=== PATIENT | male | born 1960 | race Caucasian/White ===

== ENCOUNTER 2022-10-06 19:28 | Inpatient (IN) | payer BC, MEDICARE, SELFPAY ==
[2022-10-06] VITALS (35 sets, daily range): BP systolic 132–177; BP diastolic 62–115; PULSE 67–86; RESP 4–31; TEMP 37.2–37.8; O2SAT 93–100
--- NOTE | 2022-10-06 19:45 | ECG_ITS ---
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
--- NOTE | 2022-10-06 19:45 | XR_ITS ---
The [address] [address] Patient Name: JOEL STINSON MRN: [id number] date: 1960 Sex: M Assigned Patient Location: ER Current Patient Location: ER Accession/Order Number: [id number] Exam Date: 10/06/2022 20:15 Report Date: 10/06/2022 20:38 At the request of: APPLE MARKER Procedure: XR chest 1V EXAMINATION: XR chest 1V HISTORY: Cough COMPARISON: Portable chest 01/01/2021 TECHNIQUE: Portable chest FINDINGS: The lung parenchyma is free of consolidation or infiltrate. No pneumothorax or pleural effusion. The cardiac, mediastinal and hilar contours are normal. The visualized osseous structures exhibit no gross abnormality. XR/XR chest 1V IMPRESSION: No acute cardiopulmonary abnormality. Electronically authenticated by: KHADAR HICKEY Date: 10/06/2022 20:38
--- NOTE | 2022-10-06 19:52 | ED.GENADUL1 ---
HPI - General Adult General Chief complaint: Fever Stated complaint: LOWER EXTREMITY PAIN Time Seen by Provider: 10/06/22 19:31 Source: patient and family () Mode of arrival: Wheelchair Limitations: no limitations History of Present Illness HPI narrative: This 62-year-old male who is paraplegic since 2003 due to cauda equina and lives at home with his presents for evaluation of 3 days of fever, general illness with body aches, nausea, several episodes of vomiting and redness and swelling to the left lower extremity. The patient has chronic wounds on the right lower extremity but not typically on the left lower extremity. The patient initially thought that he had a viral illness because his grandson has been sick. Since that time he has been getting increasingly weak. He denies any chest pain or shortness of breath. He does have an occasional cough. He denies any sarahi abdominal pain. The patient uses a straight catheter to empty his bladder but states that his urine has been clear. He has several wounds/ulcers on his buttocks and sees Dr Brar at [facility]ound care. The patient's states that his temperature was 103 on Wednesday night. She states that since then she has taken his temperature and the thermometer read high. She changes his only on his buttocks daily and states these are at baseline. She also changes the wounds on his lower extremities daily. She has noticed that the area at the base of the left 5th toe which is typically a callus has now opened up. She denies there has been any drainage from it. The swelling, redness and blistering on the left lower leg is new. She states that the right lower extremity is unchanged from baseline. Onset (ago): day(s) (3) Related Data Home Medications Medication Instructions Recorded Confirmed amlodipine 10 mg tablet mg 10/06/22 atenolol 100 mg tablet mg 10/06/22 citalopram 40 mg tablet mg 10/06/22 ferrous sulfate 325 mg (65 mg mg 10/06/22 iron) tablet glipizide 10 mg tablet mg 10/06/22 lisinopril 20 mg tablet mg 10/06/22 oxybutynin chloride 15 mg mg PO 10/06/22 tablet,extended release 24 hr sitagliptin phosphate 100 mg mg 10/06/22 tablet (Januvia) Allergies Allergy/AdvReac Type Severity Reaction Status Date / Time vancomycin Allergy Verified 10/06/22 19:37 Review of Systems ROS Status of ROS 10 or more systems reviewed and unremarkable except as noted in history and below [facility] Medical History (Updated 10/07/22 @ 02:13 by Eli Smith MD) Social History Smoking status: Never smoker Exam Narrative Exam Narrative: Nurses note and vital signsReviewed, the patient has a low-grade fever, normal pulse, blood pressure is elevated at 177/71, he is not hypoxic with pulse ox of 100 percent on room air General: The patient is ill appearing and shivering. He is awake alert oriented ?4, no respiratory distress Skin: Warm, dry, no pallor noted. There is no rash noted. See musculoskeletal section for description of legs Head: Normocephalic, atraumatic Eye: Normal conjunctiva, no drainage, EOMI. PERRL Ears, Nose, Mouth, and Throat: oral mucosa is dry Cardiovascular: Regular Rate and Rhythm, vital murmurs, rubs or gallops. Respiratory: Patient is in no distress, no accessory muscle use, lungs are clear to auscultation, no wheezing, rales or rhonchi Back: non-tender, no CVA tenderness bilaterally to percussion. GI: Normal bowel sounds, no tenderness to palpation, no masses appreciated. No rebound, guarding, or rigidity noted. Musculoskeletal: Left lower extremity is warm to the touch, edematous with several blistering areas, at the base of the left 5th toe on the plantar aspect there is an open area. The states that this is typically a callus and is not open. There is no drainage from the area. I did not appreciate any foul smell. There is also a stage II decubitus ulcer on the left medial calcaneus area. RLE has a small shallow ulcer on the medial aspect of the base of the hallux and an approx 3 x 3 cm shallow ulcer on the medial malleolus. The skin on the RLE is dry but not red, warm or weeping. Neurological: A&O x4, normal speech, at neurologic baseline with history of paraplegia Psychiatric: Cooperative Constitutional Vital Signs, click to edit/add: Last Vital Signs Temp 99.2 F 10/07/22 01:00 Pulse 63 10/07/22 01:00 Resp 20 10/07/22 01:00 BP 132/67 H 10/07/22 01:00 Pulse Ox 93 L 10/07/22 01:00 O2 Del Method Room Air 10/07/22 01:00 Course Vital Signs Vital signs: Vital Signs Temperature 99.6 F 10/06/22 19:33 Pulse Rate 79 10/06/22 19:33 Respiratory Rate 16 10/06/22 19:33 Blood Pressure 177/71 H 10/06/22 19:33 Pulse Oximetry 100 10/06/22 19:33 Oxygen Delivery Method Room Air 10/06/22 19:33 Temperature 99.2 F 10/07/22 01:00 Pulse Rate 63 10/07/22 01:00 Respiratory Rate 20 10/07/22 01:00 Blood Pressure 132/67 H 10/07/22 01:00 Pulse Oximetry 93 L 10/07/22 01:00 Oxygen Delivery Method Room Air 10/07/22 01:00 Medical Decision Making MDM Narrative Medical decision making narrative: 62-year-old male who is paraplegic since 2003 after having cauda equina and lives at home with his is brought emergency department for evaluation of a fever for the past 5 days. The states that his temperature was as high as 103 at home and then the thermometer read high. The patient initially thought that he had a viral syndrome because one of their grandchildren had recently been sick. He then started developing redness and swelling of the left lower extremity. He does have chronic wounds on both feet and his buttock area. He does go to wound care at [facility] but they only treat his buttock wounds, not his legs or feet.The patient's dresses his feet and buttock area on a daily basis and states that the left leg is not typically red, warm and does not usually have blistering. This is new in the past several days. He also has a callus on his left foot that has recently opened up. She denies that it has been draining. The patient does have a mild cough. He denies any chest pain. He denies any vomiting or diarrhea but does have some mild nausea. Upon arrival a sepsis protocol was instituted. He had a normal EKG at 75 beats for minute. An IV was placed and he was given a liter of normal saline and IV Zosyn. He is ALLERGIC to vancomycin. 2 sets of blood cultures, lactic acid, CBC with differential, comprehensive metabolic profile, urinalysis, chest x-ray and wound cultures were ordered. The wound on the base of the left foot was cultured. He was medicated with Tylenol for his fever. His vital signs remained hemodynamically stable. He has an elevated white count at 17.7 with a low hemoglobin of 7.6. The patient did require blood in June and had a colonoscopy at that time in [facility] after he was admitted. There were no significant findings at the time of his colonoscopy. He has not had any black tarry stools. The states that his wounds do not typically bleed. He has a normal sodium and potassium. Normal chloride and CO2. BUN is mildly elevated at 29 and creatinine is mildly elevated at 1.67. Glucose was normal at 102. Alkaline phosphatase is mildly elevated at 190. Lactic acid was normal at 1.5. Chest x-ray was normal. He remained hemodynamically stable in the emergency department. After he was feeling better he requested some to eat. He requested something for generalized pain and was given one [place]. He was type and crossed and received one unit of O negative blood as a negative blood was currently unavailable. The case was discussed with the hospitalist and the patient was accepted for admission to [facility]. He was given a unit of blood prior to being transferred to the floor. Lab Data Labs: Lab Results 10/06/22 10/06/22 Range/Units 19:58 21:15 WBC 17.7 H (4.0-11.0) 10^3/uL RBC 3.26 L (4.70-6.10) 10^6/uL Hgb 7.6 L (14.0-18.0) g/dL Hct 24.3 L (42.0-54.0) % MCV 74.5 L (80.0-94.0) fL MCH 23.3 L (25.9-34.0) pg MCHC 31.3 (29.9-35.2) g/dL RDW 17.0 H (11.0-15.0) % Plt Count 365 (150-450) 10^3/uL MPV 9.0 L (9.5-13.5) fL Neut % (Auto) 79.1 H (43.0-75.0) % Lymph % (Auto) 10.3 L (20.5-60.0) % [place] % (Auto) 7.5 (1.7-12.0) % Eos % (Auto) 2.1 (0.9-7.0) % Baso % (Auto) 0.2 (0.2-2.0) % Neut # (Auto) 14.0 H (1.4-6.5) 10^3/uL Lymph # (Auto) 1.8 (1.2-3.8) 10^3/uL [place] # (Auto) 1.3 H (0.3-0.8) 10^3/uL Eos # (Auto) 0.4 (0.0-0.7) 10^3/uL Baso # (Auto) 0.0 (0.0-0.1) 10^3/uL Abs Immat Gran (auto) 0.15 H (0.00-0.03) 10^3/uL Imm/Tot Granulo (auto) 0.8 H (0.0-0.5) % Sodium 134 L (136-145) mmol/L Potassium 4.3 (3.5-5.1) mmol/L Chloride 101 (98-107) mmol/L Carbon Dioxide 21.4 (21.0-32.0) mmol/L Anion Gap 15.9 BUN 29.0 H (7.0-18.0) mg/dL Creatinine 1.67 H (0.70-1.30) mg/dL Est GFR ( Amer) 51 L (>=60) Est GFR (Non-Af Amer) 42 L (>=60) BUN/Creatinine Ratio 17.4 Glucose 102 (74-106) mg/dL Lactate 1.5 (0.4-2.0) mmol/L Calcium 8.6 (8.5-10.1) mg/dL Total Bilirubin 0.3 (0.2-1.0) mg/dL AST 24 (15-37) U/L ALT 15 L (16-63) U/L Alkaline Phosphatase 190 H (46-116) U/L Total Protein 8.5 H (6.4-8.2) g/dL Albumin 1.8 L (3.4-5.0) g/dL Globulin 6.7 g/dL Albumin/Globulin Ratio 0.3 Blood Type A Negative Antibody Screen Negative Crossmatch See Detail ECG Data Attestation: I personally reviewed and interpreted this ECG as follows: (Sinus rhythm at 75 beats for minute, normal axis, normal intervals, no acute ST segment elevation or T-wave inversion) Critical Care Time Critical Care Time Total Critical Care Time: 40 Discharge Plan Discharge Chief Complaint: Fever Clinical Impression: Acute anemia, Cellulitis of left lower extremity Patient Disposition: Admitted As Inpatient Time of Disposition Decision: 01:31 Discharge Date/Time: 10/07/22 00:58
--- NOTE | 2022-10-06 20:18 | US_ITS ---
[place] [address] Patient Name: JOEL STINSON MRN: [id number] date: 1960 Sex: M Assigned Patient Location: ER Current Patient Location: ER Accession/Order Number: [id number] Exam Date: 10/06/2022 19:50 Report Date: 10/06/2022 22:09 At the request of: APPLE MOSCOSO Procedure: US venous doppler LE BI EXAMINATION: US venous doppler LE BI HISTORY: R/O DVT COMPARISON: No relevant comparison available. TECHNIQUE: Grayscale, color and Doppler ultrasound FINDINGS: Region: Bilateral legs Thrombus: None Flow: Normal Compressibility: Normal Augmentation: Normal Limited exam due to subcutaneous edema US/US venous doppler LE BI IMPRESSION: No deep or superficial vein thrombus in the visualized veins *Exam performed in accordance with [facility] practice guidelines- Peripheral venous ultrasound, June 22, 2009. Electronically authenticated by: KHADAR MEDINA Date: 10/06/2022 22:09
[2022-10-06 20:26] LABS: Basophils Percent Auto 0.2 % (0.2-2.0); Eosinophils Absolute Auto 0.4 10^3/uL (0.0-0.7); Eosinophils Percent Auto 2.1 % (0.9-7.0); Hematocrit 24.3 % (42.0-54.0); Hemoglobin 7.6 g/dL (14.0-18.0); Immature Granulocytes Abs Auto 0.15 10^3/uL (0.00-0.03); Immature Granulocytes Pct Auto 0.8 % (0.0-0.5); Lymphocytes Absolute Auto 1.8 10^3/uL (1.2-3.8); Lymphocytes Percent Auto 10.3 % (20.5-60.0); Mean Corpuscular HGB Conc 31.3 g/dL (29.9-35.2); Mean Corpuscular Hemoglobin 23.3 pg (25.9-34.0); Mean Corpuscular Volume 74.5 fL (80.0-94.0); Monocytes Absolute Auto 1.3 10^3/uL (0.3-0.8); Monocytes Percent Auto 7.5 % (1.7-12.0); Neutrophils Percent Auto 79.1 % (43.0-75.0); Platelet Count 365 10^3/uL (150-450); Red Blood Count 3.26 10^6/uL (4.70-6.10); White Blood Count 17.7 10^3/uL (4.0-11.0)
[2022-10-06] MEDS: 0.9 % SODIUM CHLORIDE 1,000 ML 999 ML IV (20:31)
[2022-10-06] MEDS: ACETAMINOPHEN 325 MG TABLET 650 MG PO (20:31)
[2022-10-06] MEDS: PIPERACILLIN SODIUM/TAZOBACTAM 3.375 GM in 0.9 % SODIUM CHLORIDE 50 ML IV (20:32)
[2022-10-06] MEDS: ONDANSETRON PF 4 MG/2 ML VIAL IV (20:32)
[2022-10-06 20:34] LABS: Alanine Aminotransferase 15 U/L (16-63); Albumin Globulin Ratio 0.3; Albumin Level 1.8 g/dL (3.4-5.0); Alkaline Phosphatase 190 U/L (46-116); Anion Gap 15.9; Aspartate Amino Transferase 24 U/L (15-37); BUN Creatinine Ratio 17.4; Bilirubin Total 0.3 mg/dL (0.2-1.0); Calcium 8.6 mg/dL (8.5-10.1); Carbon Dioxide 21.4 mmol/L (21.0-32.0); Chloride 101 mmol/L (98-107); Estimated GFR (African America 51 (>=60); Estimated GFR (Non-African Ame 42 (>=60); Globulin 6.7 g/dL; Glucose 102 mg/dL (74-106); Potassium 4.3 mmol/L (3.5-5.1); Sodium 134 mmol/L (136-145); Total Protein 8.5 g/dL (6.4-8.2)
--- NOTE | 2022-10-06 20:34 | PC.NURSE ---
Pt presents to ER with his via wheelchair Pt is a paraplegic with chronic wounds to bilateral lower legs, feet, and buttocks Per pt's wounds on his buttocks are to the bone Dr. Smith unwrapped the left lower leg as pt and stated this is new swelling and some new openings on the left side of the foot There is an open pressure wound to the heel of the left foot and beneath the small toe on the left Aston lift pad was placed below pt and pt moved onto bed Pt gowned, placed on bedside monitor, EKG obtained IV started, 2 sets of blood cultures obtained Pt's is at bedside Pt is A&Ox4 Pt states he has been feeling sick since Wednesday with fevers up to 104 intermittently Pt is now weak and feels dry Pt straight caths himself for urine and states he has had normal output
[2022-10-06 20:37] LABS: Lactate/Lactic Acid 1.5 mmol/L (0.4-2.0)
--- NOTE | 2022-10-06 20:55 | PC.NURSE ---
Non pitting edema and heat present to left lower extremity and foot Ultrasound currently being performed at bedside
--- NOTE | 2022-10-06 22:11 | ECG_ITS ---
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 Repeat ECG is requested 9115 abnormal ECG Electronically Signed On 10-07-2022 7:02:12 EDT by ZARIA CASTANON
[2022-10-06] MEDS: 0.9 % SODIUM CHLORIDE 250 ML IV.SOLN IV (22:55)
--- NOTE | 2022-10-06 23:00 | PC.NURSE ---
This nurse at bedside with pt after blood initiation pt tolerating well Will continue to monitor
[2022-10-06] MEDS: IBUPROFEN 600 MG TABLET PO (23:39)
[2022-10-06] MEDS: HYDROCODONE/ACETAMINOPHEN 5-325 MG TABLET 1 TAB PO (23:54)
[2022-10-07] VITALS (24 sets, daily range): BP systolic 123–155; BP diastolic 55–75; PULSE 59–94; RESP 10–25; TEMP 36.4–37.8; O2SAT 91–96; BMI 34.8
--- NOTE | 2022-10-07 03:49 | P.PN_ITS ---
Progress Note: Subjective Subjective Interval history: The patient is a 62-year-old male with a history of paraplegia. He has recently been exposed to his grandchild who had a respiratory illness. The patient has chronic lower extremity ulcers and he started noticing an ulcer on his left dorsal foot that became more red swollen and tender over the last several days. He vomited twice at home. The patient presented to the ED and was thought to have left lower extremity cellulitis. He was given Zofran, Tylenol and Zosyn. He was also noted to be anemic with a hemoglobin of 7.6 and was given 1 unit of blood. He is being admitted for further evaluation. Exam Narrative Exam Narrative: General : Alert and oriented x3 HEENT : Extraocular movements intact, pupils equal round and reactive to light and accommodation Neck: Supple, no JVD Chest: Clear to auscultation bilaterally, no wheezes Heart: Regular rate and rhythm, S1 and S2 heard Abdomen: Soft nontender nondistended. Extremities: No clubbing cyanosis or edema Skin: Multiple nonhealing ulcers of both lower extremity Constitutional Vital Signs, click to edit/add: Last Vital Signs Temp 99.2 F 10/07/22 01:25 Pulse 79 10/07/22 01:25 Resp 20 10/07/22 01:25 BP 132/67 H 10/07/22 01:25 Pulse Ox 93 L 10/07/22 01:25 O2 Del Method Room Air 10/07/22 01:25 Progress Note: Objective Labs Labs: Short CBC 10/06/22 Range/Units 19:58 WBC 17.7 H (4.0-11.0) 10^3/uL Hgb 7.6 L (14.0-18.0) g/dL Hct 24.3 L (42.0-54.0) % Plt Count 365 (150-450) 10^3/uL BMP 10/06/22 19:58 Sodium 134 L Potassium 4.3 Chloride 101 Carbon Dioxide 21.4 BUN 29.0 H Creatinine 1.67 H Glucose 102 Calcium 8.6 Liver Function 10/06/22 Range/Units 19:58 Total Bilirubin 0.3 (0.2-1.0) mg/dL AST 24 (15-37) U/L ALT 15 L (16-63) U/L Alkaline Phosphatase 190 H (46-116) U/L Albumin 1.8 L (3.4-5.0) g/dL Progress Note: A&P Assessment and Plan (1) Acute anemia: (2) Cellulitis of left lower extremity: Plan The patient is a 62-year-old male with above medical problems, presenting with left lower extremity cellulitis. Left lower extremity cellulitis -Provide supportive care -Continue empiric antibiotics with Zosyn, patient allergic to vancomycin -Wound care Acute on chronic anemia -Given 1 unit of blood -Monitor labs Accelerated hypertension -Hydralazine IV as needed Paraplegia with neurogenic bladder -Provide supportive care -Place Rowe catheter DVT Prophylaxis -Lovenox Medication review -Medication reconciliation form not yet completed, awaiting on meds to be verified Goals of care -Full code Communications -Discussed with the emergency room physician -Discussed with the bedside nurse -Patient updated of plan of care, all questions answered to their satisfaction Disposition -Home when medically stable Telemedicine clause -As the provider of this telehealth evaluation, requested by the patient's evaluating physician, I attest that I introduced myself to the patient, provided my credentials and determined that telemedicine via a real-time, two-way interactive audio and video platform is an appropriate and effective means of providing this service. -I reviewed the patient's chart and had a discussion with the member of the patient's treatment team. -The patient and I mutually agreed with continuation of this evaluation via telemedicine. The patient consented for the telemedicine evaluation. -This virtual encounter was taken place from [place], [place]. The encounter was approximately 35 minutes. The nurse was present during the entire time of the encounter and was able to remove the stethoscope and appropriate directions. The patient was evaluated at [facility]. Telemedicine Attestation Telemedicine Attestation I conducted this encounter from [place], [place] via secure live, [id number] video conference with the patient, located at [facility] with nurse Prior to the interview, the risks and benefits of telemedicine were discussed with the patient and verbal consent was obtained.
[2022-10-07] MEDS: PIPERACILLIN SODIUM/TAZOBACTAM 3.375 GM in 0.9 % SODIUM CHLORIDE 50 ML IV ×2 (04:42→20:40)
[2022-10-07] MEDS: 0.9 % SODIUM CHLORIDE 250 ML 100 ML IV (04:45)
[2022-10-07 05:17] LABS: Basophils Percent Auto 0.2 % (0.2-2.0); Eosinophils Absolute Auto 0.5 10^3/uL (0.0-0.7); Eosinophils Percent Auto 3.4 % (0.9-7.0); Immature Granulocytes Abs Auto 0.12 10^3/uL (0.00-0.03); Immature Granulocytes Pct Auto 0.8 % (0.0-0.5); Lymphocytes Percent Auto 14.1 % (20.5-60.0); Mean Corpuscular HGB Conc 30.3 g/dL (29.9-35.2); Mean Corpuscular Hemoglobin 23.4 pg (25.9-34.0); Mean Corpuscular Volume 77.3 fL (80.0-94.0); Mean Platelet Volume 8.9 fL (9.5-13.5); Monocytes Absolute Auto 1.5 10^3/uL (0.3-0.8); Monocytes Percent Auto 10.7 % (1.7-12.0); Neutrophils Absolute Auto 10.2 10^3/uL (1.4-6.5); Neutrophils Percent Auto 70.8 % (43.0-75.0); Platelet Count 266 10^3/uL (150-450); Red Blood Count 2.99 10^6/uL (4.70-6.10); Red Cell Distribution Width 17.2 % (11.0-15.0); White Blood Count 14.5 10^3/uL (4.0-11.0)
[2022-10-07 05:26] LABS: Anion Gap 13.6; BUN Creatinine Ratio 16.1; Calcium 7.9 mg/dL (8.5-10.1); Carbon Dioxide 21.1 mmol/L (21.0-32.0); Chloride 105 mmol/L (98-107); Estimated GFR (African America 56 (>=60); Estimated GFR (Non-African Ame 46 (>=60); Glucose 97 mg/dL (74-106); Potassium 3.7 mmol/L (3.5-5.1); Sodium 136 mmol/L (136-145)
[2022-10-07 05:27] LABS: Hematocrit 23.1 % (42.0-54.0)
--- NOTE | 2022-10-07 07:43 | CM.NOTE ---
Medicare Outpatient Observation Notice discussed with pt, pt verbalizes understanding and signs paper. Origianl given to pt and copy placed on pt's chart.
[2022-10-07 08:30] LABS: Glucometer 92 mg/dL (74-106)
--- NOTE | 2022-10-07 08:36 | PC.NURSE ---
Patient has multiple wound ulcers on bilateral legs. L lower leg is red and warm to touch. R lower leg has multiple wound ulcers
[2022-10-07 08:59] LABS: Partial Thromboplastin Time 27.6 sec (22.3-36.2); Prothrombin Time 11.6 sec (9.0-11.6)
--- NOTE | 2022-10-07 09:34 | CM.NOTE ---
Rounds made with Dr. Alarcon, pt will receive 2 units of PRBC's today. Will continue to monitor, pt verbailzes feeling better. Pt has [facility] that follows his wounds, wound will consult on pt while here in hospital.
--- NOTE | 2022-10-07 09:49 | P.HP_ITS ---
H&P: HPI History of Present Illness Chief complaint: LOWER EXTREMITY PAIN, LLE CELLULITIS, ANEMIA Narrative: Patient is a quadriplegic has had increasing swelling of his left lower extremity found to have some significant erythema. He said some chronic wounds in his lower extremities and gluteal area. He sees wound management for that. With increasing swelling and erythema he presented to the emergency room. Found to have left lower extremity cellulitis with failed outpatient treatment. Admitted for work-up and treatment of same Review of Systems ROS Constitutional Reports: fever (103 at home) Ears, nose, mouth, and throat Denies: throat pain Cardiovascular Denies: chest pain Respiratory Denies: shortness of breath Gastrointestinal Denies: abdominal pain Genitourinary Reports: painful urination Musculoskeletal Denies: back pain Integumentary/Breast Reports: rash and redness [facility] Medical History (Updated 10/07/22 @ 02:46 by Reese Lewis) Surgical History Social History Smoking status: Never smoker Meds Home Medications and Allergies Home Medications Medication Instructions Recorded Confirmed Type amlodipine 10 mg tablet 10 mg PO .ONCE DAILY 10/06/22 10/07/22 History atenolol 100 mg tablet 100 mg PO .ONCE DAILY 10/06/22 10/07/22 History citalopram 40 mg tablet 40 mg PO .ONCE DAILY 10/06/22 10/07/22 History ferrous sulfate 325 mg (65 mg 325 mg PO .ONCE DAILY 10/06/22 10/07/22 History iron) tablet glipizide 10 mg tablet 10 mg PO .TWICE DAILY 10/06/22 10/07/22 History lisinopril 20 mg tablet 20 mg PO .ONCE DAILY 10/06/22 10/07/22 History oxybutynin chloride 15 mg 15 mg PO .ONCE DAILY 10/06/22 10/07/22 History tablet,extended release 24 hr sitagliptin phosphate 100 mg 100 mg PO .ONCE DAILY 10/06/22 10/07/22 History tablet (Januvia) Allergies Allergy/AdvReac Type Severity Reaction Status Date / Time vancomycin Allergy Verified 10/06/22 19:37 Exam Constitutional Vital Signs, click to edit/add: Last Vital Signs Temp 97.7 F 10/07/22 06:00 Pulse 59 L 10/07/22 06:00 Resp 16 10/07/22 08:00 BP 123/63 H 10/07/22 06:00 Pulse Ox 92 L 10/07/22 06:00 O2 Del Method Room Air 10/07/22 06:00 Documenting provider has reviewed patient's vital signs: yes Common normals: no apparent distress Exam limitations: no altered mental status General appearance: cooperative and comfortable Respiratory Common normals: normal respiratory effort and no retractions Cardio Common normals: no JVD, regular rate and regular rhythm Extremity Common normals: abnormal to inspection (Cellulitis and swelling of left lower extremity with open wounds) Results Labs Labs: Short CBC 10/06/22 10/07/22 Range/Units 19:58 03:53 WBC 17.7 H 14.5 H (4.0-11.0) 10^3/uL Hgb 7.6 L 7.0 L (14.0-18.0) g/dL Hct 24.3 L 23.1 L* (42.0-54.0) % Plt Count 365 266 (150-450) 10^3/uL BMP 10/06/22 10/07/22 19:58 03:53 Sodium 134 L 136 Potassium 4.3 3.7 Chloride 101 105 Carbon Dioxide 21.4 21.1 BUN 29.0 H 25.0 H Creatinine 1.67 H 1.55 H Glucose 102 97 Calcium 8.6 7.9 L Liver Function 10/06/22 Range/Units 19:58 Total Bilirubin 0.3 (0.2-1.0) mg/dL AST 24 (15-37) U/L ALT 15 L (16-63) U/L Alkaline Phosphatase 190 H (46-116) U/L Albumin 1.8 L (3.4-5.0) g/dL Assessment and Plan Assessment and Plan (1) Acute anemia: (2) Cellulitis of left lower extremity: Plan Fever, leukocytosis, swelling and erythema of left lower extremity consistent with cellulitis with failed outpatient treatment. Has been seeing wound management. Consult to wound therapy here. IV antibiotics. Need to watch antibiotic dosage secondary to elevated BUN and creatinine. Likely diabetic wounds-patient meets criteria for sepsis, not severe, criteria being fever leukocytosis and suspected source of infection with left lower extremity cellulitis Bladder outlet obstruction. Patient frequently caths himself. Has had some increasing difficulty lately. He has had urethral strictures with dilation in the past.Consult to urology Iron deficiency anemia- transfusions in the past. His hemoglobin was 7.7 they gave him 1 unit and went down to 7. Given 2 more units. Check CBC posttransfusion. He has had recent scopes with Upper endoscopy and colonoscopy n No bleeding source was found. Patient not having any black tarry stools or bloody stools . we will discuss with hematology Hyponatremia-monitor daily Acute kidney injury-up slightly, continue to watch antibiotics Moderate protein calorie malnutrition-diet supplement Paraplegic from spinal cord injury-Maintain routine care. Diabetes mellitus-add insulin sliding scale
[2022-10-07] MEDS: CITALOPRAM HYDROBROMIDE 20 MG TABLET 40 MG PO (10:06)
[2022-10-07] MEDS: PROSTAT 15 GM PROTEIN/100 CAL 30 ML LIQUID PACKET PO ×2 (10:06→20:52)
[2022-10-07] MEDS: ATENOLOL 50 MG TABLET 100 MG PO (10:06)
[2022-10-07] MEDS: GLIPIZIDE 10 MG TABLET PO ×2 (10:07→20:52)
[2022-10-07] MEDS: FUROSEMIDE 20 MG TABLET PO (10:07)
[2022-10-07] MEDS: FERROUS SULFATE 325 MG TABLET PO (10:07)
[2022-10-07] MEDS: LEVOFLOXACIN IN DEXTROSE 5 % 750 MG/150 ML IV.SOLN 100 MG IV (10:08)
[2022-10-07] MEDS: LISINOPRIL 20 MG TABLET PO (10:08)
[2022-10-07] MEDS: L. ACIDOPHILUS/L.BULGARICUS 1 PACKET GRAN.PACK PO ×2 (10:08→20:52)
[2022-10-07] MEDS: OXYBUTYNIN CHLORIDE 5 MG TAB XL 15 MG PO (10:09)
[2022-10-07] MEDS: SITAGLIPTIN PHOSPHATE 50 MG TABLET 100 MG PO (10:09)
[2022-10-07] MEDS: OMEPRAZOLE 20 MG CAPSULE.DR PO ×2 (10:09→20:52)
[2022-10-07 11:14] LABS: Glucometer 178 mg/dL (74-106)
--- NOTE | 2022-10-07 12:00 | PHOTOS ---
right heel/foot
--- NOTE | 2022-10-07 12:24 | PHOTOS ---
right medial ankle
--- NOTE | 2022-10-07 12:25 | PHOTOS ---
right lateral ankle
--- NOTE | 2022-10-07 12:25 | PHOTOS ---
left heel medial
--- NOTE | 2022-10-07 12:27 | PHOTOS ---
left plantar foot
--- NOTE | 2022-10-07 12:28 | PHOTOS ---
left lateral ankle
--- NOTE | 2022-10-07 14:17 | PC.NURSE ---
Patient seen today for wound care assessment. Patient admitted due to left lower leg cellulitis. States he has had wounds to buttocks and right heel/ankle for awhile but the ulcers to the left foot/heel/ankle are new as well as the redness and blisters to the lower leg. States he is feeling better than when he first came in. He is paraplegic. He has an off loading boot for the right at home and uses an air mattress, he has not had an off loading boot for the left as he has not had any problems with the left side in the past. He sees [facility] and his takes care of his wounds at home. Photos takes of wounds today. Right ischial: Unsure of what stage wound was at the deepest. Bone is covered with tissue, but very close. No odor noted. Periwound mildly macerated. Biggs wound base. Minimal serosang drainage noted. 7cmx3.8cmx5.5cm. No tunneling or undermining noted. Left ischial: Unsure of what stage wound was at the deepest. Small opening with tunneling noted. No odor noted. Periwound mildly macerated. Unable to visualize wound bed due to small opening. Min/mod serosang drainage noted. [id number] Coccyx: Unsure of what stage wound was at the deepest. Bone is covered with tissue, but very close. No odor noted. Periwound mildly macerated. Biggs wound base. Minimal serosang drainage noted. [id number]. Right medial buttocks/perirectal: Skin tear distal to coccyx ulcer. Superficial. Biggs wound base. Minimal drainage. 6.5cmx1.8cmx0.1cm. Patient with multiple open wounds to right and left foot/heels. Right lateral ankle ulcer with necrotic center. Measurements [id number]. No drainage noted. No s/sx of infection. Right medial heel/ankle with 2 yellow slough covered areas. Both areas are approximately [id number]. Some yellow drainage noted. Left medial heel with open area and deep tissue injury surrounding open ulcer. Area is slightly erythematous with some drainage noted. Periwound with areas of purple/red the is non blanching. Entire area measures 5cmx3.8cmx0.1cm. The middle part of this area appears to be an open blister. Left plantar 5th metatarsal head with open ulcer that is necrotic with loose callus skin and fluctuance noted. When pushed on, thick yellow/pardo pus expressed. Area measures 2.1cmx1.9qbn8fo. Left lateral ankle with deep tissue injury noted. No drainage. Overall left lower leg is more swollen and red than right side. Also with intact blistered scattered to leg. Updated Dr. Beal on patient's lower extremity ulcers. He will order treatment on these areas. Applied gauze to BLE until evaluated by Dr. Beal. Will order mesalt ribbon to left ischial ulcer daily. Triad to perirectal skin tear and other areas of excoriation daily and as needed. Calcium alginate to coccyx and right ischial daily. Cover with ABD pads. Cloth tape. Patient requests to keep current mattress. Placed air cushion under his lower legs to off load heels/feet. Reposition frequently. Please call [phone] if any questions.
[2022-10-07] MEDS: 0.9 % SODIUM CHLORIDE 250 ML 120 ML IV (14:42)
--- NOTE | 2022-10-07 14:51 | XR_ITS ---
The [address] [address] Patient Name: JOEL STINSON MRN: [id number] date: 1960 Sex: M Assigned Patient Location: MS Current Patient Location: MS Accession/Order Number: [id number] Exam Date: 10/07/2022 15:10 Report Date: 10/07/2022 16:01 At the request of: BELKYS ALLEN Procedure: XR ankle SARA min 3V EXAM: XR ankle SARA min 3V, XR foot SARA min 3V HISTORY: wounds infection COMPARISON: None. TECHNIQUE: 3 views of each ankle and 3 views of each foot FINDINGS: Left: Subcutaneous soft tissue edema of the lower leg that extends into the dorsal aspect of the foot. No visualized fracture, dislocation, subluxation or osseous lesion. Degenerative changes of the first metatarsophalangeal joint. The remainder of the joint spaces are unremarkable for patient's age. Atherosclerosis of the vascular structures. Right: Soft tissue edema on the lower leg that extends into the dorsum of the foot. Chronic periosteal reaction of the fibula, lateral malleolus, tibia and medial malleolus. 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 No acute fracture, dislocation or subluxation. Degenerative changes of the first metatarsophalangeal joint. Atherosclerosis of the vascular structures. XR/XR ankle SARA min 3V IMPRESSION: Diffuse subcutaneous soft tissue edema of the lower leg that extends into the dorsum of the feet. No visualized acute osseous abnormality. Electronically authenticated by: KHADAR HICKEY Date: 10/07/2022 16:01
--- NOTE | 2022-10-07 14:51 | XR_ITS ---
The [address] [address] Patient Name: JOEL STINSON MRN: [id number] date: 1960 Sex: M Assigned Patient Location: MS Current Patient Location: MS Accession/Order Number: [id number] Exam Date: 10/07/2022 15:10 Report Date: 10/07/2022 16:01 At the request of: BELKYS ALLEN Procedure: XR foot SARA min 3V EXAM: XR ankle SARA min 3V, XR foot SARA min 3V HISTORY: wounds infection COMPARISON: None. TECHNIQUE: 3 views of each ankle and 3 views of each foot FINDINGS: Left: Subcutaneous soft tissue edema of the lower leg that extends into the dorsal aspect of the foot. No visualized fracture, dislocation, subluxation or osseous lesion. Degenerative changes of the first metatarsophalangeal joint. The remainder of the joint spaces are unremarkable for patient's age. Atherosclerosis of the vascular structures. Right: Soft tissue edema on the lower leg that extends into the dorsum of the foot. Chronic periosteal reaction of the fibula, lateral malleolus, tibia and medial malleolus. 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 No acute fracture, dislocation or subluxation. Degenerative changes of the first metatarsophalangeal joint. Atherosclerosis of the vascular structures. XR/XR foot SARA min 3V IMPRESSION: Diffuse subcutaneous soft tissue edema of the lower leg that extends into the dorsum of the feet. No visualized acute osseous abnormality. Electronically authenticated by: KHADAR HICKEY Date: 10/07/2022 16:01
[2022-10-07 16:09] LABS: Glucometer 179 mg/dL (74-106)
[2022-10-07] MEDS: HYOSCYAMINE SULFATE 0.125 MG TAB.SUBL 0.25 MG SL (16:56)
[2022-10-07] MEDS: INSULIN ASPART 300 UNIT/3 ML PEN SUBQ (17:00)
--- NOTE | 2022-10-07 17:33 | P.PODCN_ITS ---
[facility] - Podiatry Data of Consult Patient: new to practice Consult date: 10/07/22 Requesting physician: Joseph Alarcon MD Primary care provider: Fidel Reis MD Consult Narrative Reason for consult: lower extremity ulcers Narrative: patient is a 62-year-old gentleman with past medical history significant for paraplegic secondary to cauda equina in two thousand and four, hypertension, diabetes, hypertension who was admitted to the hospital last night due to worsening fever, body aches, nausea, vomiting and increased redness and swelling to his left lower Extremity. Patient has chronic wounds to Right lower extremities as well as his buttocks treated by [facility] wound care. Patient states the wounds were increasing over the past 3-4 days as whiich point he was starting to fill worse. He did run a fever of a hundred and three over the weekend which prompted his to want him to come to the hospital. Patient does have a history of right partial 5th ray resection. Patient has been on antibiotics since admission as well as one unit of blood. States he's having some problems with his catheters is going to have a cystoscopy tomorrow. States he was seen some wound care center in [place] and then [place] prior to going to [place] Because he did not know we had a wound center across the street. States they were doing drawtechs to his right lower extremity. Still endorsing some chills. Denies any other constitutional symptoms. cc:: CC: Joseph Alarcon MD Review of Systems ROS Status of ROS 10 or more systems reviewed and unremarkable except as noted in history and below [facility] Medical History (Updated 10/07/22 @ 02:46 by Reese Lewis) Surgical History Social History Smoking status: Never smoker Exam Narrative Exam Narrative: Dermatological: Right lower extremity: Multiple full-thickness ulcerations noted to the medial and lateral ankle, fibrous base, no probe to bone, serous drainage, no surrounding erythema, edema noted, no malodor, no purulence Eschar noted to right heel, Stable, no signs of infection Left lower extremity: Full-thickness ulceration to the 5th metatarsal head, Purulence upon debridement, Surrounding erythema extending proximally to the proximal tibia, hyperkeratotic edges, no probe to bone, necrotic and fibrous base Partial-thickness wound to plantar heel, surrounding erythema, no drainage Multiple serous filled blisters noted to mid tibia and distal tibia Nerve: Sensation absent to light touch Vascular: Bilateral lower extremity edema left worse than right Pulses nonpalpable due to edema Capillary refill sluggish but intact Left extremity warm compared to right Musculoskeletal Paraplegic at baseline No pain with any sort of range of motion passively No pain to palpation Partial 5th ray resection on the right Compartment soft and compressible Imaging: X-rays taken of bilateral foot and ankles demonstrating previous partial 5th ray resection on the right, Some osteopenia, no cortical erosions or cortical breaks, no acute fractures, no dislocation subluxations, diffuse soft tissue edema Constitutional Vital Signs, click to edit/add: Last Vital Signs Temp 99 F 10/07/22 16:50 Pulse 61 10/07/22 16:50 Resp 16 10/07/22 16:50 BP 146/69 H 10/07/22 16:50 Pulse Ox 94 L 10/07/22 16:50 O2 Del Method Room Air 10/07/22 16:50 Assessment and Plan Assessment and Plan (1) Acute anemia: (2) Cellulitis of left lower extremity: Plan Assessment: Paraplegic Right pressure ulcers as well as venous stasis ulcers Dry stable eschar, right heel Infected pressure ulcer, left forefoot Partial thickness pressure ulcer to left heel Serous blistering secondary to cellulitis, left leg Cellulitis left leg Bilateral lower extremity edema Plan: Patient seen and evaluated Physical exam findings discussed with the patient Labs and vitals reviewed Noted leukocytosis somewhat decreased from admission to today but still elevated Awaiting inflammatory markers ESR and CRP Noted The fever seems to have resolved, hypertensive Noted low H and H, he was being transfused during this encounter After verbal consent was obtained ulcers are debrided bilaterally, purulence as discussed above to the left forefoot ulceration, fibrous tissue removed from bilateral foot ulcers Dressings included Xeroform, 4 x 4 gauze, ABDs, Kerlix and tape Due to poorly palpable pulses and questionable arterial supply I did not use an Benton Recommend at some point obtaining noninvasive arterial studies Recommend daily dressings with Santyl due to the fibrous nature Xeroform can be used on partial-thickness wounds as well as blistering to prevent adherence He has a scheduled procedure tomorrow with cystoscopy We will see him one week from discharge He may call for questions or concerns We will follow
[2022-10-07 20:18] LABS: Basophils Percent Auto 0.2 % (0.2-2.0); Eosinophils Absolute Auto 0.3 10^3/uL (0.0-0.7); Eosinophils Percent Auto 1.7 % (0.9-7.0); Hematocrit 30.2 % (42.0-54.0); Hemoglobin 9.6 g/dL (14.0-18.0); Immature Granulocytes Abs Auto 0.14 10^3/uL (0.00-0.03); Immature Granulocytes Pct Auto 0.9 % (0.0-0.5); Lymphocytes Absolute Auto 1.1 10^3/uL (1.2-3.8); Lymphocytes Percent Auto 7.1 % (20.5-60.0); Mean Corpuscular HGB Conc 31.8 g/dL (29.9-35.2); Mean Corpuscular Hemoglobin 25.1 pg (25.9-34.0); Mean Corpuscular Volume 78.9 fL (80.0-94.0); Mean Platelet Volume 8.7 fL (9.5-13.5); Monocytes Percent Auto 6.8 % (1.7-12.0); Neutrophils Absolute Auto 12.8 10^3/uL (1.4-6.5); Neutrophils Percent Auto 83.3 % (43.0-75.0); Platelet Count 271 10^3/uL (150-450); Red Blood Count 3.83 10^6/uL (4.70-6.10); Red Cell Distribution Width 17.2 % (11.0-15.0); White Blood Count 15.4 10^3/uL (4.0-11.0)
[2022-10-07] MEDS: 0.9 % SODIUM CHLORIDE 250 ML 10 ML IV (20:40)
[2022-10-07 20:48] LABS: Glucometer 118 mg/dL (74-106)
[2022-10-08] VITALS (12 sets, daily range): BP systolic 97–136; BP diastolic 47–73; PULSE 51–60; RESP 3–18; TEMP 36.4–37.1; O2SAT 93–98
[2022-10-08] MEDS: PIPERACILLIN SODIUM/TAZOBACTAM 3.375 GM in 0.9 % SODIUM CHLORIDE 50 ML IV (03:35)
[2022-10-08 05:20] LABS: Hematocrit 29.8 % (42.0-54.0); Hemoglobin 9.3 g/dL (14.0-18.0); Mean Corpuscular HGB Conc 31.2 g/dL (29.9-35.2); Mean Corpuscular Hemoglobin 24.5 pg (25.9-34.0); Mean Corpuscular Volume 78.4 fL (80.0-94.0); Mean Platelet Volume 8.8 fL (9.5-13.5); Platelet Count 327 10^3/uL (150-450); Red Cell Distribution Width 17.2 % (11.0-15.0); White Blood Count 21.3 10^3/uL (4.0-11.0)
[2022-10-08 05:29] LABS: Erythrocyte Sedimentation Rate >130 mm/hr (<=20)
[2022-10-08 05:53] LABS: Alanine Aminotransferase 11 U/L (16-63); Albumin Globulin Ratio 0.2; Albumin Level 1.5 g/dL (3.4-5.0); Alkaline Phosphatase 157 U/L (46-116); Anion Gap 15.3; Aspartate Amino Transferase 14 U/L (15-37); BUN Creatinine Ratio 15.8; Bilirubin Total 0.4 mg/dL (0.2-1.0); C Reactive Protein 39.6 mg/dL (<=1.0); Calcium 8.3 mg/dL (8.5-10.1); Carbon Dioxide 19.5 mmol/L (21.0-32.0); Chloride 105 mmol/L (98-107); Estimated GFR (African America 60 (>=60); Estimated GFR (Non-African Ame 49 (>=60); Globulin 6.2 g/dL; Magnesium 1.6 mg/dL (1.8-2.4); Potassium 3.8 mmol/L (3.5-5.1); Sodium 136 mmol/L (136-145); Total Protein 7.7 g/dL (6.4-8.2)
[2022-10-08 05:59] LABS: Glucose 47 mg/dL (74-106)
[2022-10-08] MEDS: DEXTROSE 50 %-WATER 25 GM/50 ML SYRINGE IV (06:07)
[2022-10-08 06:10] LABS: Segmented Neut Absolute Manual 16.18 10^3/uL (1.4-6.5)
[2022-10-08 06:11] LABS: Anisocytosis 1+; Eosinophils Absolute Manual 0.42 10^3/uL (0.00-0.70); Lymphocytes Absolute Manual 3.19 10^3/uL (1.20-3.80); Monocytes Absolute Manual 1.49 10^3/uL (0.30-0.80)
[2022-10-08 06:32] LABS: Glucometer 145 mg/dL (74-106)
--- NOTE | 2022-10-08 08:59 | CM.NOTE ---
Rounds made with Dr. Alarcon, pt was able to have straight cath's brought in from home yesterday and successful with self cath and emptying bladder. Dr. Hoffman will see pt today.
[2022-10-08] MEDS: HYOSCYAMINE SULFATE 0.125 MG TAB.SUBL 0.25 MG SL ×2 (09:15→17:31)
[2022-10-08] MEDS: LEVOFLOXACIN IN DEXTROSE 5 % 750 MG/150 ML IV.SOLN 100 MG IV (09:15)
[2022-10-08] MEDS: FUROSEMIDE 20 MG TABLET PO (09:16)
[2022-10-08] MEDS: ATENOLOL 50 MG TABLET 100 MG PO (09:16)
[2022-10-08] MEDS: GLIPIZIDE 10 MG TABLET PO (09:16)
[2022-10-08] MEDS: OMEPRAZOLE 20 MG CAPSULE.DR PO ×2 (09:16→20:50)
[2022-10-08] MEDS: FERROUS SULFATE 325 MG TABLET PO (09:16)
[2022-10-08] MEDS: SITAGLIPTIN PHOSPHATE 50 MG TABLET 100 MG PO (09:16)
[2022-10-08] MEDS: OXYBUTYNIN CHLORIDE 5 MG TAB XL 15 MG PO (09:16)
[2022-10-08] MEDS: L. ACIDOPHILUS/L.BULGARICUS 1 PACKET GRAN.PACK PO ×2 (09:17→20:50)
[2022-10-08] MEDS: CITALOPRAM HYDROBROMIDE 20 MG TABLET 40 MG PO (09:17)
[2022-10-08] MEDS: LISINOPRIL 20 MG TABLET PO (09:17)
--- NOTE | 2022-10-08 09:43 | P.PN_ITS ---
Progress Note: Subjective Subjective Interval history: Overall patient feels about the same. Exam Constitutional Vital Signs, click to edit/add: Last Vital Signs Temp 97.6 F 10/08/22 05:09 Pulse 58 L 10/08/22 05:09 Resp 18 10/08/22 05:09 BP 132/68 H 10/08/22 05:09 Pulse Ox 96 10/08/22 05:09 O2 Del Method Room Air 10/08/22 05:09 Respiratory Common normals: normal respiratory effort, no retractions, no use of accessory muscles and clear to auscultation bilaterally Cardio Common normals: no JVD, regular rate and regular rhythm Extremity Common normals: abnormal to inspection Other: Left lower extremity appears worse with increasing erythema and swelling that spread up his leg. Progress Note: Objective Labs Labs: Short CBC 10/07/22 10/08/22 Range/Units 20:10 04:35 WBC 15.4 H 21.3 H (4.0-11.0) 10^3/uL Hgb 9.6 L 9.3 L (14.0-18.0) g/dL Hct 30.2 L 29.8 L (42.0-54.0) % Plt Count 271 327 (150-450) 10^3/uL BMP 10/08/22 04:35 Sodium 136 Potassium 3.8 Chloride 105 Carbon Dioxide 19.5 L BUN 23.0 H Creatinine 1.46 H Glucose 47 L* Calcium 8.3 L Liver Function 10/08/22 Range/Units 04:35 Total Bilirubin 0.4 (0.2-1.0) mg/dL AST 14 L (15-37) U/L ALT 11 L (16-63) U/L Alkaline Phosphatase 157 H (46-116) U/L Albumin 1.5 L (3.4-5.0) g/dL Progress Note: A&P Assessment and Plan (1) Acute anemia: (2) Cellulitis of left lower extremity: Plan Fever, leukocytosis, swelling and erythema of left lower extremity consistent with cellulitis with failed outpatient treatment.? Has been seeing wound management.? Consult to wound therapy here.? IV antibiotics.? Need to watch antibiotic dosage secondary to elevated BUN and creatinine.? Likely diabetic wounds-patient meets criteria for sepsis, not severe, patient will require inpatient status secondary to need for change in antibiotics secondary to increasing swelling and erythema and elevated white blood cell count Bladder outlet obstruction.?Patient was able to get his home catheter, will see urology later today for possible dilation Iron deficiency anemia- transfusions in the past.? hemoglobin came up nicely with the 2 units from yesterday. No source of active bleeding. Recommend following up with hematology as an outpatient Hyponatremia-monitor daily Acute kidney injury- improved Moderate protein calorie malnutrition-diet supplement Paraplegic from spinal cord injury-Maintain routine care. Diabetes mellitus-add insulin sliding scale Hypomagnesemia-add supplement
--- NOTE | 2022-10-08 10:41 | PM.PN ---
Progress Note: Subjective Subjective Interval history: Patient seen and evaluated this morning. No acute overnight events. No new complaints today. States he actually feels better today. He seems more energy and last chills today. sTATES HIS DRESSINGS REMAINED CLEAN DRY AND INTACT. Denies any new pedal complaints. Exam Narrative Exam Narrative: Dressings are left clean dry and intact No strikethrough noted Erythema, swelling and blistering noted to the left lower extremity visible Erythema does not seem TO HAVE RESOLVED MUCH TO ME No pain with calf compression Constitutional Vital Signs, click to edit/add: Last Vital Signs Temp 97.6 F 10/08/22 05:09 Pulse 58 L 10/08/22 05:09 Resp 18 10/08/22 05:09 BP 132/68 H 10/08/22 05:09 Pulse Ox 96 10/08/22 05:09 O2 Del Method Room Air 10/08/22 05:09 Progress Note: Objective Labs Labs: Short CBC 10/07/22 10/08/22 Range/Units 20:10 04:35 WBC 15.4 H 21.3 H (4.0-11.0) 10^3/uL Hgb 9.6 L 9.3 L (14.0-18.0) g/dL Hct 30.2 L 29.8 L (42.0-54.0) % Plt Count 271 327 (150-450) 10^3/uL BMP 10/08/22 04:35 Sodium 136 Potassium 3.8 Chloride 105 Carbon Dioxide 19.5 L BUN 23.0 H Creatinine 1.46 H Glucose 47 L* Calcium 8.3 L Liver Function 10/08/22 Range/Units 04:35 Total Bilirubin 0.4 (0.2-1.0) mg/dL AST 14 L (15-37) U/L ALT 11 L (16-63) U/L Alkaline Phosphatase 157 H (46-116) U/L Albumin 1.5 L (3.4-5.0) g/dL Progress Note: A&P Assessment and Plan (1) Acute anemia: (2) Cellulitis of left lower extremity: Plan Assessment: Paraplegic Right pressure ulcers as well as venous stasis ulcers Dry stable eschar, right heel Infected pressure ulcer, left forefoot Partial thickness pressure ulcer to left heel Serous blistering secondary to cellulitis, left leg Cellulitis left leg Bilateral lower extremity edema Plan: Patient seen and evaluated Physical exam findings discussed with the patient Labs and vitals reviewed Noted leukocytosis somewhat decreased On admission but unfortunately increased to twenty-one today Awaiting inflammatory markers ESR and CRP Fever seems to be transient but was afebrile during my visit Noted low H and H, Improved today after transfusion yesterday Due to poorly palpable pulses and questionable arterial supply I did not use an Benton Recommend at some point obtaining noninvasive arterial studies Recommend daily dressings with Santyl due to the fibrous nature Xeroform can be used on partial-thickness wounds as well as blistering to prevent adherence He has a scheduled procedure Today with cystoscopy We will see him one week from discharge He may call for questions or concerns We will follow Discussed with hospitalist team is changing antibiotics due to worsening white count and cellulitis not resolving
[2022-10-08 11:46] LABS: Percent Iron Saturation 19.3 %
[2022-10-08 12:02] LABS: Lactate Dehydrogenase 145 U/L (85-227)
[2022-10-08] MEDS: LACTATED RINGER'S SOLUTION 1,000 ML 1000 ML IV (12:35)
[2022-10-08] MEDS: CEFAZOLIN SODIUM/DEXTROSE,ISO 2 GM/50 ML PIGGYBACK IV (12:35)
--- NOTE | 2022-10-08 12:59 | P.CN_ITS ---
Consult Note: [facility] Data of Consult Consult date: 10/08/22 Requesting Physician: Joseph Alarcon MD Primary Care Provider: Fidel Reis MD Consult Narrative Reason for consult: difficulty passing catheter in a paraplegic with a neurogenic bladder. Narrative: this 62-year-old paraplegic male was admitted with lower extremity cellulitis that failed outpatient management. He normally does clean intermittent catheterization several times a day. While in the hospital he has had difficulty catheterizing because he was unable to get his usual stiff catheters that he uses at home. The nursing staff was unable to place a Rowe catheter also. Urology was consulted for the above reasons. Of note is that his was finally able to bring his home catheters to the hospital and he was able to successfully catheterize himself yesterday evening. Apparently, he used to see Dr. Crockett several years ago. He saw Dr. Clarke in [place] who just dilated him a couple weeks ago. At that time of course he was having difficulty passing his catheter also. he unfortunately is very unsure of the details of the situation from his procedure by Dr. Clarke. Since that dilation, he has quickly redeveloped difficulty passing his catheter. states that his paraplegia developed from cauda equina syndrome a couple decades ago. cc:: CC: Joseph Alarcon MD Review of Systems ROS Status of ROS 10 or more systems reviewed and unremarkable except as noted in history and below [facility] Medical History Surgical History Social History Smoking status: Never smoker Meds Home Medications and Allergies Home Medications Medication Instructions Recorded Confirmed Type amlodipine 10 mg tablet 10 mg PO .ONCE DAILY 10/06/22 10/07/22 History atenolol 100 mg tablet 100 mg PO .ONCE DAILY 10/06/22 10/07/22 History citalopram 40 mg tablet 40 mg PO .ONCE DAILY 10/06/22 10/07/22 History ferrous sulfate 325 mg (65 mg 325 mg PO .ONCE DAILY 10/06/22 10/07/22 History iron) tablet glipizide 10 mg tablet 10 mg PO .TWICE DAILY 10/06/22 10/07/22 History lisinopril 20 mg tablet 20 mg PO .ONCE DAILY 10/06/22 10/07/22 History oxybutynin chloride 15 mg 15 mg PO .ONCE DAILY 10/06/22 10/07/22 History tablet,extended release 24 hr sitagliptin phosphate 100 mg 100 mg PO .ONCE DAILY 10/06/22 10/07/22 History tablet (Januvia) Allergies Allergy/AdvReac Type Severity Reaction Status Date / Time vancomycin Allergy Verified 10/06/22 19:37 Exam Narrative Exam Narrative: his resting comfortably in his hospital bed. He is in no acute distress. Abdomen is soft and nontender. No masses are palpable. Penis is a normal phallus. Scrotum reveals 2 normal testicles. He has 2 rather significant pressure ulcers on his buttocks. The right side is much larger than the left. Constitutional Vital Signs, click to edit/add: Last Vital Signs Temp 97.6 F 10/08/22 05:09 Pulse 58 L 10/08/22 05:09 Resp 18 10/08/22 05:09 BP 132/68 H 10/08/22 05:09 Pulse Ox 96 10/08/22 05:09 O2 Del Method Room Air 10/08/22 05:09 Results Labs Labs: Short CBC 10/07/22 10/08/22 Range/Units 20:10 04:35 WBC 15.4 H 21.3 H (4.0-11.0) 10^3/uL Hgb 9.6 L 9.3 L (14.0-18.0) g/dL Hct 30.2 L 29.8 L (42.0-54.0) % Plt Count 271 327 (150-450) 10^3/uL BMP 10/08/22 04:35 Sodium 136 Potassium 3.8 Chloride 105 Carbon Dioxide 19.5 L BUN 23.0 H Creatinine 1.46 H Glucose 47 L* Calcium 8.3 L Liver Function 10/08/22 Range/Units 04:35 Total Bilirubin 0.4 (0.2-1.0) mg/dL AST 14 L (15-37) U/L ALT 11 L (16-63) U/L Alkaline Phosphatase 157 H (46-116) U/L Albumin 1.5 L (3.4-5.0) g/dL Assessment and Plan Assessment and Plan (1) Acute anemia: (2) Cellulitis of left lower extremity: (3) Urethral stricture in male: Assessment and Plan: this gentleman most likely has chronic urethral strictures from clean intermittent catheterization for many years. Although he was just dilated a couple weeks ago while in [place], he has recurrent strictures and difficulty catheterizing at this time.he needs to get cystoscopy and urethral dilation done along with a Rowe catheter placement. His catheter should stay in his bladder for nearly a month to let everything calm down. Depending upon how significant the damage in his urethra is, we can talk about possible chronic Rowe versus suprapubic tube placement postoperatively. Over 30 minutes of clinical time was spent talking with the attending doctor, the patient, the nursing staff, reviewing the patient's chart and examining the patient. Thank you for letting me take part in his care. Qualifiers: Urethral stricture type: post-traumatic, male Qualified Code(s): N35.014 - Post-traumatic urethral stricture, male, unspecified (4) Neurogenic bladder: (5) Paraplegic spinal paralysis: Plan Fever, leukocytosis, swelling and erythema of left lower extremity consistent with cellulitis with failed outpatient treatment. Has been seeing wound management. Consult to wound therapy here. IV antibiotics. Need to watch antibiotic dosage secondary to elevated BUN and creatinine. Likely diabetic wounds-patient meets criteria for sepsis, not severe, criteria being fever leukocytosis and suspected source of infection with left lower extremity cellulitis Bladder outlet obstruction. Patient frequently caths himself. Has had some increasing difficulty lately. He has had urethral strictures with dilation in the past.Consult to urology Iron deficiency anemia- transfusions in the past. His hemoglobin was 7.7 they gave him 1 unit and went down to 7. Given 2 more units. Check CBC posttransfusion. He has had recent scopes with Upper endoscopy and colonoscopy n No bleeding source was found. Patient not having any black tarry stools or bloody stools . we will discuss with hematology Hyponatremia-monitor daily Acute kidney injury-up slightly, continue to watch antibiotics Moderate protein calorie malnutrition-diet supplement Paraplegic from spinal cord injury-Maintain routine care. Diabetes mellitus-add insulin sliding scale
--- NOTE | 2022-10-08 13:12 | P.URON_ITS ---
Urology Surgery Operative Note Operative Note Procedure Date: 10/08/22 Time Out Performed: yes Pre-op Diagnosis: recurrent urethral strictures Post-op Diagnosis: same Procedures performed: #1. Cystoscopy. #2. Urethral dilation with Duarte sounds to 30 [place]. #3. Placement of 22 [place] Rowe catheter. Anesthesia: MAC Primary Surgeon: Jovanny Hoffman Complications: none Estimated blood loss (mL): 20 Findings: diffuse sequential urethral strictures throughout the entire penile and bulbar urethra. Diffuse ratty inflamed penile urethra. Specimens: none Drains: 22 [place] two-way Rowe catheter in the bladder. Indications for Procedures: this paraplegic gentleman has presumed recurrent urethral strictures and difficulty passing his catheters. He now presents for cystoscopy and urethral dilation and possible OIU along with placement of the Rowe catheter. He has signed an informed consent for these procedures after all the risks were explained to him in great detail. Detailed description of Procedure: patient was brought to the operating room and placed on the operating room table in the supine position. SCDs were placed on his lower extremities and turned on and functioning during the entire case. Timeout was done by all parties in the room. We all agreed upon the patient's identification and the planned procedures for this patient. Seth anesthesia was then administered. He was then repositioned into the modified dorsal lithotomy position. All pressure points were satisfactorily padded. Genitalia were sterilely prepped and draped in the usual fashion. I started by attempting to pass a 22 [place] Olympus cystoscope per urethra but was unable due to severe stenosis. I then passed a Glidewire through the urethra and was able to get it into the bladder. I tthen used Duarte sounds and dilated him from 16 [place] [address]l the way up to 30 [place]. Each of these dilations was difficult because the urethra was indurated from the chronic sequential progressive urethral strictures.after the dilation was complete I then passed the 22 [place] cystoscope per urethra and into the bladder. One could see that he had sequential strictures and rattty inflamed urethra from the meatus all the way to the prostatic urethra. The prostate itself appeared normal. There was bilobar hypertrophy. Panendoscopy in the bladder showed thatt the bladder was overdistended. There was no evidence of any tumors or stones. The urine had inflammatory debris within it. The bladder was drained of its contents. The scope was then removed. I then passed a 22 [place] tip Rowe catheter through the urethra and into the bladder. The catheter was manually irrigated with a catheter tip syringe to verify placement and to remove any remaining debris. 12 mL of fluid was placed in the balloon. It drained clear urine. The urethra had blood show around the outside of the catheter. The patient was then [place] [facility] [place] and wheeled to PACU in stable condition. The plan is that this gentleman needs to keep his Rowe catheter indwelling for a month to allow everything to calm down in his urethra. I will meet with him in the office in about a month and we will discuss eithher continuing chroonic Rowe catheterization with monthly changes or resorting to suprapubic tube placement to bypass his urethra. Once this gentleman does go home I would suggest that he gets started on doxycycline 100 mg daily for no less than one month.
[2022-10-08] MEDS: MAGNESIUM OXIDE 400 MG TABLET PO ×2 (13:34→20:50)
[2022-10-08] MEDS: CLINDAMYCIN PHOSPHATE/D5W 600 MG/50 ML PIGGYBACK 100 MG IV ×3 (13:36→22:16)
[2022-10-08 17:40] LABS: Glucometer 64 mg/dL (74-106)
[2022-10-08] MEDS: COLLAGENASE CLOSTRIDIUM HIST. 250 UNITS/GM 30 GRAM TUBE 1 APPLIC TOPICAL (20:19)
[2022-10-08] MEDS: PROSTAT 15 GM PROTEIN/100 CAL 30 ML LIQUID PACKET PO (20:50)
[2022-10-08 20:52] LABS: Glucometer 66 mg/dL (74-106)
[2022-10-08 23:04] LABS: Glucometer 71 mg/dL (74-106)
[2022-10-09] MEDS: CLINDAMYCIN PHOSPHATE/D5W 600 MG/50 ML PIGGYBACK 100 MG IV ×4 (04:00→22:31)
[2022-10-09] MEDS: 0.9 % SODIUM CHLORIDE 250 ML 10 ML IV (04:00)
[2022-10-09 04:40] LABS: Basophils Percent Auto 0.1 % (0.2-2.0); Eosinophils Absolute Auto 0.2 10^3/uL (0.0-0.7); Eosinophils Percent Auto 1.6 % (0.9-7.0); Hematocrit 26.3 % (42.0-54.0); Hemoglobin 8.3 g/dL (14.0-18.0); Immature Granulocytes Abs Auto 0.15 10^3/uL (0.00-0.03); Lymphocytes Absolute Auto 1.2 10^3/uL (1.2-3.8); Mean Corpuscular HGB Conc 31.6 g/dL (29.9-35.2); Mean Corpuscular Hemoglobin 24.6 pg (25.9-34.0); Mean Platelet Volume 8.6 fL (9.5-13.5); Monocytes Absolute Auto 1.1 10^3/uL (0.3-0.8); Neutrophils Absolute Auto 12.5 10^3/uL (1.4-6.5); Neutrophils Percent Auto 82.3 % (43.0-75.0); Platelet Count 262 10^3/uL (150-450); Red Blood Count 3.37 10^6/uL (4.70-6.10); Red Cell Distribution Width 17.4 % (11.0-15.0); White Blood Count 15.2 10^3/uL (4.0-11.0)
[2022-10-09 05:01] LABS: Alanine Aminotransferase 10 U/L (16-63); Albumin Globulin Ratio 0.2; Albumin Level 1.3 g/dL (3.4-5.0); Alkaline Phosphatase 183 U/L (46-116); Anion Gap 11.8; Aspartate Amino Transferase 11 U/L (15-37); BUN Creatinine Ratio 14.5; Bilirubin Total 0.3 mg/dL (0.2-1.0); C Reactive Protein 18.2 mg/dL (<=1.0); Carbon Dioxide 23.1 mmol/L (21.0-32.0); Chloride 104 mmol/L (98-107); Erythrocyte Sedimentation Rate 100 mm/hr (<=20); Estimated GFR (African America 60 (>=60); Estimated GFR (Non-African Ame 49 (>=60); Globulin 5.8 g/dL; Glucose 65 mg/dL (74-106); Magnesium 1.5 mg/dL (1.8-2.4); Potassium 3.9 mmol/L (3.5-5.1); Sodium 135 mmol/L (136-145); Total Protein 7.1 g/dL (6.4-8.2)
[2022-10-09 05:47] VITALS: BP 154/69; PULSE 70; RESP 16; TEMP 36.7; O2SAT 93
[2022-10-09] MEDS: PANTOPRAZOLE SODIUM 40 MG VIAL IV (08:21)
[2022-10-09] MEDS: HYOSCYAMINE SULFATE 0.125 MG TAB.SUBL 0.25 MG SL ×3 (08:24→16:55)
[2022-10-09] MEDS: CALCIUM CARBONATE 500 MG (200MG ELEMENTAL) TAB CHEW PO ×4 (08:25→21:13)
[2022-10-09] MEDS: MAGNESIUM OXIDE 400 MG TABLET PO ×3 (08:25→21:13)
[2022-10-09] MEDS: CITALOPRAM HYDROBROMIDE 20 MG TABLET 40 MG PO (08:25)
[2022-10-09] MEDS: ATENOLOL 50 MG TABLET 100 MG PO (08:25)
[2022-10-09] MEDS: SITAGLIPTIN PHOSPHATE 50 MG TABLET 100 MG PO (08:25)
[2022-10-09] MEDS: L. ACIDOPHILUS/L.BULGARICUS 1 PACKET GRAN.PACK PO ×2 (08:25→21:13)
[2022-10-09] MEDS: FERROUS SULFATE 325 MG TABLET PO ×2 (08:25→21:14)
[2022-10-09] MEDS: GLIPIZIDE 10 MG TABLET 5 MG PO ×2 (08:26→21:18)
[2022-10-09] MEDS: FUROSEMIDE 20 MG TABLET PO (08:26)
[2022-10-09] MEDS: LEVOFLOXACIN IN DEXTROSE 5 % 750 MG/150 ML IV.SOLN 100 MG IV (08:31)
[2022-10-09] MEDS: OXYBUTYNIN CHLORIDE 5 MG TAB XL 15 MG PO (08:31)
[2022-10-09] MEDS: LISINOPRIL 20 MG TABLET PO (08:31)
--- NOTE | 2022-10-09 08:45 | CM.NOTE ---
Rounds made with Dr. Alarcon, no discharge today. Dr. Alarcon talked with the pt regarding oncology(hematology) recommendations. Waiting on sensitivity from culture to determine discharge antibiotics.
--- NOTE | 2022-10-09 09:07 | P.PN_ITS ---
Progress Note: Subjective Subjective Interval history: Overall patient feels generally better than the previous day. Exam Constitutional Vital Signs, click to edit/add: Last Vital Signs Temp 98.1 F 10/09/22 05:47 Pulse 70 10/09/22 05:47 Resp 16 10/09/22 05:47 BP 154/69 H 10/09/22 05:47 Pulse Ox 93 L 10/09/22 05:47 O2 Del Method Room Air 10/09/22 05:47 Respiratory Common normals: normal respiratory effort, no retractions, no use of accessory muscles and clear to auscultation bilaterally Cardio Common normals: no JVD, regular rate and regular rhythm Extremity Common normals: abnormal to inspection Other: Left lower extremity appears better than the previous day. Erythema improving. Swelling improving Progress Note: Objective Labs Labs: Short CBC 10/09/22 Range/Units 04:08 WBC 15.2 H (4.0-11.0) 10^3/uL Hgb 8.3 L (14.0-18.0) g/dL Hct 26.3 L (42.0-54.0) % Plt Count 262 (150-450) 10^3/uL BMP 10/06/22 10/09/22 19:58 04:08 Sodium 134 L 135 L Potassium 4.3 3.9 Chloride 101 104 Carbon Dioxide 21.4 23.1 BUN 29.0 H 21.0 H Creatinine 1.67 H 1.45 H Glucose 102 65 L Calcium 8.6 8.0 L Liver Function 10/06/22 10/09/22 Range/Units 19:58 04:08 Total Bilirubin 0.3 0.3 (0.2-1.0) mg/dL AST 24 11 L (15-37) U/L ALT 15 L 10 L (16-63) U/L Alkaline Phosphatase 190 H 183 H (46-116) U/L Albumin 1.8 L 1.3 L (3.4-5.0) g/dL Progress Note: A&P Assessment and Plan (1) Acute anemia: (2) Cellulitis of left lower extremity: (3) Urethral stricture in male: Qualifiers: Urethral stricture type: post-traumatic, male Qualified Code(s): N35.014 - Post-traumatic urethral stricture, male, unspecified (4) Neurogenic bladder: (5) Paraplegic spinal paralysis: Plan Fever, leukocytosis, swelling and erythema of left lower extremity consistent with cellulitis with failed outpatient treatment.? Has been seeing wound management.? Consult to wound therapy here.? Antibiotics were adjusted yes terday. Patient overall improved today. Still waiting on cultures. Best to stay 1 additional day. And then possible discharge tomorrow based on wound culture and culture. Bladder outlet obstruction.? patient had urethral dilation yesterday and Rowe placed for 1 month Iron deficiency anemia- transfusions in the past.? discussed case with hematology - will see as out=pt labs recommended - Not all testing is back yet. 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 Diabetes mellitus- on insulin sliding scale, sugars running low so we will cut back his glipizide in half Hypomagnesemia-add supplement Hypocalcemia-supplement
--- NOTE | 2022-10-09 10:02 | CM.NOTE ---
Pt has been changed to inpatient status 10/08/22. Discussed with pt Important Message From medicare, pt verbalizes understanding and signs paper. Original given to pt and copy placed on pt's chart.
[2022-10-09 11:25] LABS: Glucometer 75 mg/dL (74-106)
[2022-10-09 11:50] VITALS: O2SAT 96
[2022-10-09] MEDS: LACTULOSE 10 GM/15 ML (237ML) SOLUTION 30 GM PO (14:04)
[2022-10-09 14:09] VITALS: BP 152/86; PULSE 68; RESP 16; TEMP 36.7; O2SAT 93
[2022-10-09 15:10] LABS: Alpha-1-Globulin 0.5 g/dL (0.0-0.4); Alpha-2-Globulin 1.3 g/dL (0.4-1.0); Gamma Globulin 2.7 g/dL (0.4-1.8); Protein, Total 7.6 g/dL (6.0-8.5)
[2022-10-09 16:51] LABS: Glucometer 82 mg/dL (74-106)
[2022-10-09 19:58] VITALS: O2SAT 97
[2022-10-09 21:13] VITALS: BP 155/74; PULSE 65; RESP 18; TEMP 36.4; O2SAT 95
[2022-10-09] MEDS: PROSTAT 15 GM PROTEIN/100 CAL 30 ML LIQUID PACKET PO (21:13)
[2022-10-09] MEDS: COLLAGENASE CLOSTRIDIUM HIST. 250 UNITS/GM 30 GRAM TUBE 1 APPLIC TOPICAL (21:16)
[2022-10-09 22:00] VITALS: BP 155/74; PULSE 65; RESP 18; TEMP 36.4; O2SAT 95
[2022-10-10] MEDS: ENOXAPARIN SODIUM 40 MG/0.4 ML SYRINGE SUBQ (04:01)
[2022-10-10] MEDS: CLINDAMYCIN PHOSPHATE/D5W 600 MG/50 ML PIGGYBACK 100 MG IV ×2 (04:01→11:57)
[2022-10-10 04:15] VITALS: BP 155/73; PULSE 66; RESP 18; TEMP 36.8; O2SAT 95
[2022-10-10 05:01] LABS: Basophils Percent Auto 0.2 % (0.2-2.0); Eosinophils Absolute Auto 0.5 10^3/uL (0.0-0.7); Eosinophils Percent Auto 2.7 % (0.9-7.0); Hematocrit 28.1 % (42.0-54.0); Hemoglobin 8.9 g/dL (14.0-18.0); Immature Granulocytes Abs Auto 0.32 10^3/uL (0.00-0.03); Immature Granulocytes Pct Auto 1.9 % (0.0-0.5); Lymphocytes Absolute Auto 1.9 10^3/uL (1.2-3.8); Lymphocytes Percent Auto 11.1 % (20.5-60.0); Mean Corpuscular HGB Conc 31.7 g/dL (29.9-35.2); Mean Corpuscular Hemoglobin 24.7 pg (25.9-34.0); Mean Corpuscular Volume 77.8 fL (80.0-94.0); Mean Platelet Volume 8.8 fL (9.5-13.5); Monocytes Absolute Auto 1.4 10^3/uL (0.3-0.8); Monocytes Percent Auto 8.6 % (1.7-12.0); Neutrophils Absolute Auto 12.6 10^3/uL (1.4-6.5); Neutrophils Percent Auto 75.5 % (43.0-75.0); Platelet Count 284 10^3/uL (150-450); Red Blood Count 3.61 10^6/uL (4.70-6.10); Red Cell Distribution Width 17.6 % (11.0-15.0); White Blood Count 16.7 10^3/uL (4.0-11.0)
[2022-10-10] MEDS: MAGNESIUM OXIDE 400 MG TABLET PO (05:47)
[2022-10-10 05:49] LABS: Erythrocyte Sedimentation Rate >130 mm/hr (<=20)
[2022-10-10 05:56] LABS: Alanine Aminotransferase 11 U/L (16-63); Albumin Globulin Ratio 0.2; Albumin Level 1.4 g/dL (3.4-5.0); Alkaline Phosphatase 204 U/L (46-116); Anion Gap 13.6; Aspartate Amino Transferase 17 U/L (15-37); BUN Creatinine Ratio 14.9; Bilirubin Total 0.3 mg/dL (0.2-1.0); C Reactive Protein 16.5 mg/dL (<=1.0); Calcium 8.4 mg/dL (8.5-10.1); Carbon Dioxide 22.2 mmol/L (21.0-32.0); Chloride 104 mmol/L (98-107); Estimated GFR (African America >60 (>=60); Estimated GFR (Non-African Ame 51 (>=60); Globulin 6.4 g/dL; Magnesium 1.6 mg/dL (1.8-2.4); Potassium 3.8 mmol/L (3.5-5.1); Sodium 136 mmol/L (136-145); Total Protein 7.8 g/dL (6.4-8.2)
[2022-10-10 06:01] LABS: Glucose 48 mg/dL (74-106)
[2022-10-10 06:21] LABS: Glucometer 74 mg/dL (74-106)
[2022-10-10] MEDS: HYOSCYAMINE SULFATE 0.125 MG TAB.SUBL 0.25 MG SL ×2 (08:24→11:58)
[2022-10-10] MEDS: OXYBUTYNIN CHLORIDE 5 MG TAB XL 15 MG PO (08:24)
[2022-10-10] MEDS: CALCIUM CARBONATE 500 MG (200MG ELEMENTAL) TAB CHEW PO ×2 (08:25→11:59)
[2022-10-10] MEDS: L. ACIDOPHILUS/L.BULGARICUS 1 PACKET GRAN.PACK PO (08:25)
[2022-10-10] MEDS: ATENOLOL 50 MG TABLET 100 MG PO (08:25)
[2022-10-10] MEDS: LISINOPRIL 20 MG TABLET PO (08:25)
[2022-10-10] MEDS: CITALOPRAM HYDROBROMIDE 20 MG TABLET 40 MG PO (08:25)
[2022-10-10] MEDS: SITAGLIPTIN PHOSPHATE 50 MG TABLET 100 MG PO (08:25)
[2022-10-10] MEDS: FERROUS SULFATE 325 MG TABLET PO (08:25)
[2022-10-10] MEDS: FUROSEMIDE 20 MG TABLET PO (08:25)
[2022-10-10] MEDS: GLIPIZIDE 10 MG TABLET 5 MG PO (08:27)
[2022-10-10] MEDS: LEVOFLOXACIN IN DEXTROSE 5 % 750 MG/150 ML IV.SOLN 100 MG IV (08:30)
--- NOTE | 2022-10-10 09:04 | PM.DS1 ---
DS: Providers Provider Date of admission: 10/08/22 09:37 Primary care physician: Fidel Milner MD Admitting clinician: Joseph Alarcon Consults: 10/07/22 07:30 Consult to Wound Care Routine Consulting Provider: Bubba Bahena 10/07/22 07:36 Consult to Dietitian Routine Reason For Exam: recommomendatiuons 10/07/22 08:04 Consult to Urology Routine Consulting Provider: Jovanny Gould 10/07/22 09:51 Consult to Oncology Routine Consulting Provider: Nina Moreira Attending physician on discharge: Kerry Contreras DS: Diagnosis Discharge Diagnosis (1) Acute anemia: (2) Cellulitis of left lower extremity: (3) Urethral stricture in male: Qualifiers: Urethral stricture type: post-traumatic, male Qualified Code(s): N35.014 - Post-traumatic urethral stricture, male, unspecified (4) Neurogenic bladder: (5) Paraplegic spinal paralysis: DS: Summary Hospital Course Hospital Course: 1. LLE Cellulitis- Fever, leukocytosis, swelling and erythema of left lower extremity consistent with cellulitis with failed outpatient treatment.? Has been seeing wound management.? Consult to wound therapy here.? Antibiotics were adjusted yesterday.? Patient overall improved today.?wound cultures were positive for Proteus, strep, enterococcus will be placed on Augmentin and Levaquin as an outpatient ?1 week with close follow-up with wound clinic and his PCP. 2. Bladder outlet obstruction.? patient had urethral dilation and Rowe placed for 1 month, will have follow-up with urology 3 Iron deficiency anemia-iron level was low we'll increase daily iron supplement to twice a day, outpatient follow-up with hematology 4.Hyponatremia-monitor daily 5. 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 8. Diabetes mellitus- resume home medications Status at Discharge Functional status at discharge: wheelchair bound Time Spent with Patient Time attestation: Total time spent providing and/or coordinating discharge services: Exam Narrative Exam Narrative: General: Patient is alert, and oriented to person, place and time with normal affect, proper hygiene Skin: left lower ext erythema but improving Head: atraumatic, acephalic Eyes: PERRLA, no nystagmus present, conjunctiva clear, no scleral icterus Neck: no masses palpated, normal thyroid, no JVD or audible carotid bruits Heart: Normal rate and rhythm, no murmurs/rubs/gallops Lungs: no audible wheezes, crackles and normal breath sounds all lung bates Abdomen: Normal audible bowel sounds, no distension, No palpable masses, no organomegaly, no rebound/guarding/ or rigidity Musculoskeletal: muscle atrophy noted, ROM is limited due to being in hospital bed, no swelling bilateral lower extremities Vascular: Normal carotid, radial, femoral, posterior tibial, and dorsalis pedis pulses Lymph: no supraclavicular, axillary, or anterior/posterior cervical adenopathy Neuro: CN II-X grossly intact, normal sensation upper and lower extremities Constitutional Vital Signs, click to edit/add: Last Vital Signs Temp 98.2 F 10/10/22 04:15 Pulse 66 10/10/22 04:15 Resp 18 10/10/22 04:15 BP 155/73 H 10/10/22 04:15 Pulse Ox 95 10/10/22 04:15 O2 Del Method Room Air 10/10/22 04:15 DS: Data Data Completed and Pending Labs on day of discharge: Labs from last 24 hours 10/10/22 10/10/22 10/10/22 06:10 04:10 04:00 WBC 16.7 H RBC 3.61 L Hgb 8.9 L Hct 28.1 L MCV 77.8 L MCH 24.7 L MCHC 31.7 RDW 17.6 H Plt Count 284 MPV 8.8 L Neut % (Auto) 75.5 H Lymph % (Auto) 11.1 L [place] % (Auto) 8.6 Eos % (Auto) 2.7 Baso % (Auto) 0.2 Neut # (Auto) 12.6 H Lymph # (Auto) 1.9 [place] # (Auto) 1.4 H Eos # (Auto) 0.5 Baso # (Auto) 0.0 Abs Immat Gran (auto) 0.32 H Imm/Tot Granulo (auto) 1.9 H ESR >130 H Sodium 136 Potassium 3.8 Chloride 104 Carbon Dioxide 22.2 Anion Gap 13.6 BUN 21.0 H Creatinine 1.41 H Est GFR ( Amer) >60 Est GFR (Non-Af Amer) 51 L BUN/Creatinine Ratio 14.9 Glucose 48 L* Calcium 8.4 L Magnesium 1.6 L Total Bilirubin 0.3 AST 17 ALT 11 L Alkaline Phosphatase 204 H C-Reactive Protein 16.5 H Total Protein 7.8 Total Protein (PEP) Albumin 1.4 L Albumin (PEP) Globulin 6.4 Globulin (PEP) Albumin/Globulin Ratio 0.2 Albumin/Globulin (PEP) Rxorc-9-Tgwldwzbd Qkhyp-3-Jzarmyonh Beta Globulins Gamma Globulins M-Chetan PEP Note POC Glucose 74 10/09/22 10/09/22 10/08/22 16:50 11:23 10:34 WBC RBC Hgb Hct MCV MCH MCHC RDW Plt Count MPV Neut % (Auto) Lymph % (Auto) [place] % (Auto) Eos % (Auto) Baso % (Auto) Neut # (Auto) Lymph # (Auto) [place] # (Auto) Eos # (Auto) Baso # (Auto) Abs Immat Gran (auto) Imm/Tot Granulo (auto) ESR Sodium Potassium Chloride Carbon Dioxide Anion Gap BUN Creatinine Est GFR ( Amer) Est GFR (Non-Af Amer) BUN/Creatinine Ratio Glucose Calcium Magnesium Total Bilirubin AST ALT Alkaline Phosphatase C-Reactive Protein Total Protein Total Protein (PEP) 7.6 Albumin Albumin (PEP) 2.0 L Globulin Globulin (PEP) 5.6 H Albumin/Globulin Ratio Albumin/Globulin (PEP) 0.4 L Vamxk-7-Pgpxcfspj 0.5 H Anwey-6-Pfvpcysuj 1.3 H Beta Globulins 1.2 Gamma Globulins 2.7 H M-Chetan Not observed PEP Note Comment POC Glucose 82 75 Preliminary micro results at discharge 10/06/22 21:50 Wound Culture - Preliminary Leg - Left Proteus mirabilis Streptococcus dysgalactiae 10/06/22 20:13 - Preliminary Blood NO GROWTH AT 36-48 HOURS. FINAL TO FOLLOW. Discharge Plan Discharge Disposition: Home, Self-Care Discharge Medications: New levofloxacin 500 mg tablet 500 mg PO DAILY 7 Days Qty: 7 0RF amoxicillin-pot clavulanate [Augmentin] 500-125 mg tablet 1 tab PO Q12H 7 Days Qty: 14 0RF Continued oxybutynin chloride 15 mg tablet extended release 24hr 15 mg PO .ONCE DAILY citalopram 40 mg tablet 40 mg PO .ONCE DAILY atenolol 100 mg tablet 100 mg PO .ONCE DAILY lisinopril 20 mg tablet 20 mg PO .ONCE DAILY glipizide 10 mg tablet 10 mg PO .TWICE DAILY amlodipine 10 mg tablet 10 mg PO .ONCE DAILY Januvia 100 mg tablet 100 mg PO .ONCE DAILY Changed ferrous sulfate 325 mg (65 mg iron) tablet 325 mg PO BID Qty: 0 0RF Rx Instructions: WITH BREAKFAST Activity: resume usual activities as tolerated Diet: advance to your usual diet Patient Instructions: Amoxicillin/Clavulanate Potassium (By mouth), Levofloxacin (By mouth), Cellulitis (GEN) Forms: Portal Instructions Referrals: Fidel Milner MD [Primary Care Provider] - 1 week Follow Up Appointments: dr milner [phone] within one week, dr gould urology one month [phone], dr moreira hematology 2-3 weeks [phone] Discharge Date/Time: 10/10/22 14:10
[2022-10-10] MEDS: PANTOPRAZOLE SODIUM 40 MG VIAL IV (09:53)
[2022-10-10 10:50] VITALS: O2SAT 97
[2022-10-10 11:55] LABS: Glucometer 146 mg/dL (74-106)
--- NOTE | 2022-10-12 15:59 | CM.DCFOLLOWU ---
Person spoke with: Ganga How are you feeling? Much better How is your pain? None Did you understand your discharge instructions? Yes Do you have any questions about your discharge instructions? No Were you given any prescriptions at discharge? Yes Were you able to get your prescriptions filled? Yes Do you understand how to take your medications as ordered? Yes Do you have any questions about your follow up appointment and do you plan to keep your follow up appointment? Have to get my schedule and then will call. Is there anything else that you would like to discuss? No Questions/Comments/Concerns/Other:
[2023-05-17 13:23] LABS: Reticulocyte Count 0.53 % (0.60-3.10)
== END 2022-10-10 14:10 | disposition home or self-care (01) | DRG 603 ==
LOC: ER 19:47 → MS 10-07 01:31
PROVIDERS: Family Medicine; Internal Medicine; Urology; Admitting Provider Family Medicine; Emergency Provider Emergency Medicine; PCP Family Medicine; Visit Provider Family Medicine
PROC: 0T7D8DZ Dilation of Urethra with Intraluminal Device, Via Natural or Artificial Opening Endoscopic (ICD-10-PCS; principal; 2022-10-08 13:30)
DX: L03.116 Cellulitis of left lower limb (principal); E87.1 Hypo-osmolality and hyponatremia; N17.9 Acute kidney failure, unspecified; E44.0 Moderate protein-calorie malnutrition; G82.20 Paraplegia, unspecified; N35.014 Post-traumatic urethral stricture, male, unspecified; N31.9 Neuromuscular dysfunction of bladder, unspecified; B96.4 Proteus (mirabilis) (morganii) as the cause of diseases classified elsewhere; B95.5 Unspecified streptococcus as the cause of diseases classified elsewhere; B95.2 Enterococcus as the cause of diseases classified elsewhere; N32.0 Bladder-neck obstruction; D50.9 Iron deficiency anemia, unspecified; S34.3XXS Injury of cauda equina, sequela; E11.9 Type 2 diabetes mellitus without complications; I10 Essential (primary) hypertension; L89.329 Pressure ulcer of left buttock, unspecified stage; L89.319 Pressure ulcer of right buttock, unspecified stage; L89.519 Pressure ulcer of right ankle, unspecified stage; L89.619 Pressure ulcer of right heel, unspecified stage; L89.899 Pressure ulcer of other site, unspecified stage; L08.9 Local infection of the skin and subcutaneous tissue, unspecified; R60.0 Localized edema; I83.019 Varicose veins of right lower extremity with ulcer of unspecified site; N32.89 Other specified disorders of bladder; E83.42 Hypomagnesemia; E83.51 Hypocalcemia; Z98.890 Other specified postprocedural states; Z79.84 Long term (current) use of oral hypoglycemic drugs; Z99.89 Dependence on other enabling machines and devices; Z79.899 Other long term (current) drug therapy; Z90.49 Acquired absence of other specified parts of digestive tract
CPT/HCPCS: 36415; 36430; 71045; 73610; 73630; 80048; 80053; 81001; 82607; 82728; 82746; 82948; 83540; 83550; 83605; 83615; 83735; 84165; 85007; 85025; 85045; 85610; 85652; 85730; 86140; 86850; 86900; 86901; 86920; 87040; 87070; 87150; 87186; 93005; 93970; 94667; 94668; 94761; 96365; 96366; 96367; 96368; 96372; 96375; 96376; 99285; G0328; G0378; J0278; J2704; P9016; Q3014

== ENCOUNTER 2022-10-20 12:16 | Outpatient (OUT) | payer BC, MEDICARE, SELFPAY ==
[2022-10-20 15:31] LABS: Basophils Percent Auto 0.3 % (0.2-2.0); Eosinophils Absolute Auto 0.4 10^3/uL (0.0-0.7); Hematocrit 33.2 % (42.0-54.0); Hemoglobin 10.1 g/dL (14.0-18.0); Immature Granulocytes Abs Auto 0.07 10^3/uL (0.00-0.03); Immature Granulocytes Pct Auto 0.6 % (0.0-0.5); Lymphocytes Absolute Auto 1.8 10^3/uL (1.2-3.8); Lymphocytes Percent Auto 14.4 % (20.5-60.0); Mean Corpuscular HGB Conc 30.4 g/dL (29.9-35.2); Mean Corpuscular Hemoglobin 24.4 pg (25.9-34.0); Mean Corpuscular Volume 80.2 fL (80.0-94.0); Mean Platelet Volume 8.8 fL (9.5-13.5); Monocytes Absolute Auto 0.8 10^3/uL (0.3-0.8); Monocytes Percent Auto 6.6 % (1.7-12.0); Neutrophils Absolute Auto 9.3 10^3/uL (1.4-6.5); Neutrophils Percent Auto 75.1 % (43.0-75.0); Platelet Count 356 10^3/uL (150-450); Red Blood Count 4.14 10^6/uL (4.70-6.10); Red Cell Distribution Width 17.9 % (11.0-15.0); White Blood Count 12.4 10^3/uL (4.0-11.0)
[2022-10-20 15:41] LABS: Alanine Aminotransferase 16 U/L (16-63); Albumin Globulin Ratio 0.3; Alkaline Phosphatase 124 U/L (46-116); Anion Gap 13.8; Aspartate Amino Transferase 19 U/L (15-37); Bilirubin Total 0.3 mg/dL (0.2-1.0); Carbon Dioxide 27.6 mmol/L (21.0-32.0); Chloride 102 mmol/L (98-107); Estimated GFR (African America 51 (>=60); Estimated GFR (Non-African Ame 42 (>=60); Globulin 7.9 g/dL; Glucose 160 mg/dL (74-106); Lactate Dehydrogenase 150 U/L (85-227); Potassium 4.4 mmol/L (3.5-5.1); Sodium 139 mmol/L (136-145); Total Protein 9.9 g/dL (6.4-8.2)
[2022-10-21 14:14] LABS: Erythropoietin (EPO), Serum 15.8 mIU/mL (2.6-18.5)
[2022-10-21 15:14] LABS: Free Lambda Lt Chains,S 202.3 mg/L (5.7-26.3); Kappa/Lambda Ratio,S 1.54 (0.26-1.65)
[2022-10-22 15:09] LABS: Hgb A 97.8 % (96.4-98.8); Hgb A2 2.2 % (1.8-3.2)
[2023-05-17 13:22] LABS: Reticulocyte Count 0.72 % (0.60-3.10)
== END 2022-10-20 12:17 | disposition home or self-care (01) ==
LOC: HEMC 12:17
PROVIDERS: PCP Family Medicine; Visit Provider Internal Medicine Hematology & Oncology
DX: D72.829 Elevated white blood cell count, unspecified (principal); D64.9 Anemia, unspecified
CPT/HCPCS: 36415; 80053; 82668; 83020; 83615; 85025; 85045; G0463

== ENCOUNTER 2022-11-17 09:43 | Outpatient (OUT) | payer BC, MEDICARE, SELFPAY | END 2022-11-17 09:44 | disposition home or self-care (01) | LOC: HEMC 09:43 | PROVIDERS: PCP Family Medicine; Visit Provider Internal Medicine Hematology & Oncology | DX: D72.829 Elevated white blood cell count, unspecified (principal); D64.9 Anemia, unspecified | CPT/HCPCS: G0463 ==

== ENCOUNTER 2022-11-25 10:01 | Inpatient (IN) | payer BC, MEDICARE, SELFPAY ==
[2022-11-25] VITALS (8 sets, daily range): BP systolic 113–148; BP diastolic 61–88; PULSE 66–83; RESP 16–20; TEMP 37–37.3; O2SAT 95–99; BMI 34.7; BMI 32.8
--- NOTE | 2022-11-25 10:05 | ECG_ITS ---
[facility] Test Date: 2022-11-25 Pat Name: JOEL STINSON Department: Room: - Gender: Male Promotions Manager: : 1960 Requested By: NICOLÁS ABBOTT Order Number: [id number] Reading MD: ZARIA CASTANON Measurements Intervals [place] Rate: 71 P: 46 ME: 164 QRS: 1 QRSD: 94 T: 16 QT: 398 QTc: 421 Interpretive Statements 1100 Sinus rhythm 9150 abnormal ECG Compared to ECG 10/06/2022 22:58:46 Myocardial infarct finding now present Electronically Signed On 11-26-2022 7:07:48 EDT by ZARIA CASTANON
[2022-11-25 10:43] LABS: Basophils Absolute Auto 0.1 10^3/uL (0.0-0.1); Basophils Percent Auto 0.4 % (0.2-2.0); Eosinophils Absolute Auto 0.9 10^3/uL (0.0-0.7); Eosinophils Percent Auto 5.2 % (0.9-7.0); Hematocrit 28.4 % (42.0-54.0); Hemoglobin 8.9 g/dL (14.0-18.0); Immature Granulocytes Abs Auto 0.11 10^3/uL (0.00-0.03); Immature Granulocytes Pct Auto 0.6 % (0.0-0.5); Lymphocytes Absolute Auto 1.9 10^3/uL (1.2-3.8); Lymphocytes Percent Auto 10.9 % (20.5-60.0); Mean Corpuscular HGB Conc 31.3 g/dL (29.9-35.2); Mean Corpuscular Hemoglobin 24.9 pg (25.9-34.0); Mean Corpuscular Volume 79.3 fL (80.0-94.0); Mean Platelet Volume 8.6 fL (9.5-13.5); Monocytes Absolute Auto 1.3 10^3/uL (0.3-0.8); Monocytes Percent Auto 7.8 % (1.7-12.0); Neutrophils Absolute Auto 12.9 10^3/uL (1.4-6.5); Neutrophils Percent Auto 75.1 % (43.0-75.0); Platelet Count 353 10^3/uL (150-450); Red Blood Count 3.58 10^6/uL (4.70-6.10); Red Cell Distribution Width 16.8 % (11.0-15.0); White Blood Count 17.1 10^3/uL (4.0-11.0)
[2022-11-25 11:09] LABS: INR 1.04
[2022-11-25 11:14] LABS: Alanine Aminotransferase 8 U/L (16-63); Albumin Globulin Ratio 0.2; Albumin Level 1.6 g/dL (3.4-5.0); Alkaline Phosphatase 132 U/L (46-116); Anion Gap 12.5; Aspartate Amino Transferase 16 U/L (15-37); BUN Creatinine Ratio 20.1; Bilirubin Total 0.4 mg/dL (0.2-1.0); Calcium 8.7 mg/dL (8.5-10.1); Chloride 103 mmol/L (98-107); Estimated GFR (African America 58 (>=60); Estimated GFR (Non-African Ame 48 (>=60); Globulin 6.9 g/dL; Glucose 158 mg/dL (74-106); Potassium 4.5 mmol/L (3.5-5.1); Sodium 133 mmol/L (136-145); Total Protein 8.5 g/dL (6.4-8.2); Troponin I High Sensitivity 12.6 pg/mL (4.0-76.1)
--- NOTE | 2022-11-25 13:03 | ED.GENADUL1 ---
HPI - General Adult General Chief complaint: Weakness Stated complaint: GENERAL WEAKNESS Time Seen by Provider: 11/25/22 10:05 Source: patient Mode of arrival: Wheelchair History of Present Illness HPI narrative: Patient have history of chronic kidney disease and also paraplegic and wheelchair-bound is coming to us with increased signs of weakness and tiredness in addition to itching, the patient think that he is anemic and he could not get into his primary care doctor he have a history of acute on chronic anemia that he needed a blood transfusion in June The patient also follow-up with hematology as outpatient according to the taking care of the patient has been having some urine incontinence and that making his ulcers in his back worse Related Data Home Medications Medication Instructions Recorded Confirmed amlodipine 10 mg tablet 10 mg PO DAILY 10/06/22 11/25/22 atenolol 100 mg tablet 100 mg PO DAILY 10/06/22 11/25/22 citalopram 40 mg tablet 40 mg PO DAILY 10/06/22 11/25/22 glipizide 10 mg tablet 10 mg PO DAILY 10/06/22 11/25/22 lisinopril 20 mg tablet 20 mg PO DAILY 10/06/22 11/25/22 oxybutynin chloride 15 mg 15 mg PO DAILY 10/06/22 11/25/22 tablet,extended release 24 hr sitagliptin phosphate 100 mg 100 mg PO DAILY 10/06/22 11/25/22 tablet (Januvia) ferrous sulfate 325 mg (65 mg 65 mg PO DAILY 11/25/22 11/25/22 iron) tablet Allergies Allergy/AdvReac Type Severity Reaction Status Date / Time vancomycin Allergy Verified 10/06/22 19:37 Review of Systems ROS Status of ROS 10 or more systems reviewed and unremarkable except as noted in history and below [facility] Medical History Surgical History Social History Smoking status: Never smoker Exam Narrative Exam Narrative: Nurses notes and vital signs reviewed and patient is not hypoxic. General: Well-appearing and in no apparent distress. Skin: Warm, dry, no pallor noted. No rash. Head: Normocephalic, atraumatic. Neck: Supple, non-tender. Eye: Pupils are equal, round and EOMI. No scleral icterus. Ears, Nose, Mouth, and Throat: TM are clear, no nasal mucosal hypertrophy. Oral mucosa is moist, no posterior oropharynx erythema, uvula is mid-line Cardiovascular: Regular Rate and Rhythm without murmur, gallop or rub. Respiratory: No accessory muscle use or respiratory distress. Lungs are clear to auscultation, no wheezing, rales or rhonchi Chest Wall: no tenderness Back: No midline thoracic or lumbar vertebral tenderness. No CVA tenderness Musculoskeletal: Chronic bilateral leg ulcers no acute changes and no acute cellulitis GI: Abdomen is soft, non-distended. Normal bowel sounds. The patient have a buttock area examined he have redness that is expanding on the lower sacral area to the buttock area bilaterally and the ulcers he have are stage IV and no acute infection in the ulcers but there is expansion of the ulcer for possible cellulitis, size of the ulcer is 10 x 7 cm almost, the patient have 3 buttock ulcers Constitutional Vital Signs, click to edit/add: Last Vital Signs Temp 98.6 F 11/25/22 10:06 Pulse 69 11/25/22 11:27 Resp 16 11/25/22 10:06 BP 113/88 11/25/22 10:06 Pulse Ox 99 11/25/22 10:06 O2 Del Method Room Air 11/25/22 10:06 Course Vital Signs Vital signs: Vital Signs Temperature 98.6 F 11/25/22 10:06 Pulse Rate 73 11/25/22 10:06 Respiratory Rate 16 11/25/22 10:06 Blood Pressure 113/88 11/25/22 10:06 Pulse Oximetry 99 11/25/22 10:06 Oxygen Delivery Method Room Air 11/25/22 10:06 Temperature 98.6 F 11/25/22 10:06 Pulse Rate 69 11/25/22 11:27 Respiratory Rate 16 11/25/22 10:06 Blood Pressure 113/88 11/25/22 10:06 Pulse Oximetry 99 11/25/22 10:06 Oxygen Delivery Method Room Air 11/25/22 10:06 Medical Decision Making MDM Narrative Medical decision making narrative: Right now the patient EKG showing sinus rhythm with a heart rate of [address] elevation or depression CBC shows leukocytosis and the patient chemistry showing some chronic kidney disease Hemoglobin is 8.[address] River , and he agreed that the patient will follow up with him as outpatient for the chronic anemia but per the white blood cell elevation we have to start him an antibiotic and trended down The patient had a blood culture obtained he will be started on Zosyn and his case was discussed with Dr. Contreras the patient will be admitted for cellulitis management and wound care Lab Data Labs: Lab Results 11/25/22 Range/Units 10:15 WBC 17.1 H (4.0-11.0) 10^3/uL RBC 3.58 L (4.70-6.10) 10^6/uL Hgb 8.9 L (14.0-18.0) g/dL Hct 28.4 L (42.0-54.0) % MCV 79.3 L (80.0-94.0) fL MCH 24.9 L (25.9-34.0) pg MCHC 31.3 (29.9-35.2) g/dL RDW 16.8 H (11.0-15.0) % Plt Count 353 (150-450) 10^3/uL MPV 8.6 L (9.5-13.5) fL Neut % (Auto) 75.1 H (43.0-75.0) % Lymph % (Auto) 10.9 L (20.5-60.0) % [place] % (Auto) 7.8 (1.7-12.0) % Eos % (Auto) 5.2 (0.9-7.0) % Baso % (Auto) 0.4 (0.2-2.0) % Neut # (Auto) 12.9 H (1.4-6.5) 10^3/uL Lymph # (Auto) 1.9 (1.2-3.8) 10^3/uL [place] # (Auto) 1.3 H (0.3-0.8) 10^3/uL Eos # (Auto) 0.9 H (0.0-0.7) 10^3/uL Baso # (Auto) 0.1 (0.0-0.1) 10^3/uL Abs Immat Gran (auto) 0.11 H (0.00-0.03) 10^3/uL Imm/Tot Granulo (auto) 0.6 H (0.0-0.5) % ESR 108 H (<=20) mm/hr PT 11.0 (9.0-11.6) sec INR 1.04 Sodium 133 L (136-145) mmol/L Potassium 4.5 (3.5-5.1) mmol/L Chloride 103 (98-107) mmol/L Carbon Dioxide 22.0 (21.0-32.0) mmol/L Anion Gap 12.5 BUN 30.0 H (7.0-18.0) mg/dL Creatinine 1.49 H (0.70-1.30) mg/dL Est GFR ( Amer) 58 L (>=60) Est GFR (Non-Af Amer) 48 L (>=60) BUN/Creatinine Ratio 20.1 Glucose 158 H (74-106) mg/dL Lactate 1.0 (0.4-2.0) mmol/L Calcium 8.7 (8.5-10.1) mg/dL Total Bilirubin 0.4 (0.2-1.0) mg/dL AST 16 (15-37) U/L ALT 8 L (16-63) U/L Alkaline Phosphatase 132 H (46-116) U/L Troponin I High Sens 12.6 (4.0-76.1) pg/mL C-Reactive Protein 32.9 H (<=1.0) mg/dL Total Protein 8.5 H (6.4-8.2) g/dL Albumin 1.6 L (3.4-5.0) g/dL Globulin 6.9 g/dL Albumin/Globulin Ratio 0.2 Discharge Plan Discharge Chief Complaint: Weakness Clinical Impression: Cellulitis of buttock Patient Disposition: Admitted As Inpatient Time of Disposition Decision: 13:08 Condition: Good
[2022-11-25] MEDS: DIPHENHYDRAMINE HCL 25 MG CAPSULE PO (13:14)
--- NOTE | 2022-11-25 13:26 | P.HP_ITS ---
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 She had noticed some increase in size and erythema of his sacral wound. Patient has chronic wounds to Right lower extremities as well as his buttocks. He was also last admitted for cellulitis in september. His reports that since that time when urinary catheter was removed, despite urinary dilation, he still continues to h ave urinary incontinence in between straight cathing. This urine is causing worsening of sacral wound. She also notes he has been itching his skin. No fevers or chills, no n/v/d Review of Systems ROS Narrative ROS: a complete review of systems were reviewed with patient and are positive as below or listed in History of Chief Complaint. General: no fever, chills, night sweats Head: no headache, trauma, visual changes, nausea or vomiting Skin: no reported rashes, itching or sores Eyes: no blurriness of vision Ears: no reported hearing loss, vertigo, earache, or tinnitus Throat: no sore throat, hoarseness, swelling of neck, or tongue pain Heart: no chest pain Lungs: no shortness of breath or cough GI: no diarrhea or vomiting/nausea Urinary: no urinary urgency, frequency or pain Neuro: no numbness or tingling HEM: no bleeding issues or bruising ENDO: no thyroid problems Psych: no anxiety or depression PFSH PFS Medical History Surgical History Social History Smoking status: Never smoker Meds Home Medications and Allergies Home Medications Medication Instructions Recorded Confirmed Type amlodipine 10 mg tablet 10 mg PO DAILY 10/06/22 11/25/22 History atenolol 100 mg tablet 100 mg PO DAILY 10/06/22 11/25/22 History citalopram 40 mg tablet 40 mg PO DAILY 10/06/22 11/25/22 History glipizide 10 mg tablet 10 mg PO DAILY 10/06/22 11/25/22 History lisinopril 20 mg tablet 20 mg PO DAILY 10/06/22 11/25/22 History oxybutynin chloride 15 mg 15 mg PO DAILY 10/06/22 11/25/22 History tablet,extended release 24 hr sitagliptin phosphate 100 mg 100 mg PO DAILY 10/06/22 11/25/22 History tablet (Januvia) ferrous sulfate 325 mg (65 mg 65 mg PO DAILY 11/25/22 11/25/22 History iron) tablet Allergies Allergy/AdvReac Type Severity Reaction Status Date / Time vancomycin Allergy Verified 10/06/22 19:37 Exam Narrative Exam Narrative: General: Patient is alert, and oriented to person, place and time with normal affect, proper hygiene Skin: bilateral lower ext have dressings that are c/d/i, examined sacral wound showed significant surrounding erythema with packing in a deep ulceration just posterior to the anus Head: atraumatic, acephalic Eyes: PERRLA, no nystagmus present, conjunctiva clear, no scleral icterus Ears: normal Tympanic Membrane, normal gross auditory acuity Nose: symmetric, no discharge, no maxillary or frontal sinus tenderness Mouth/Throat: no erythema, exudate, or tonsillar enlargement, normal dentition Neck: no masses palpated, normal thyroid, no JVD or audible carotid bruits Heart: Normal rate and rhythm, no murmurs/rubs/gallops Lungs: no audible wheezes, crackles and normal breath sounds all lung bates Abdomen: Normal audible bowel sounds, no distension, No palpable masses, no organomegaly, no rebound/guarding/ or rigidity Vascular: Normal carotid, radial, femoral, posterior tibial, and dorsalis pedis pulses Lymph: no supraclavicular, axillary, or anterior/posterior cervical adenopathy Neuro: CN II-X grossly intact Constitutional Vital Signs, click to edit/add: Last Vital Signs Temp 98.6 F 11/25/22 10:06 Pulse 69 11/25/22 11:27 Resp 16 11/25/22 10:06 BP 113/88 11/25/22 10:06 Pulse Ox 99 11/25/22 10:06 O2 Del Method Room Air 11/25/22 10:06 Results Labs Labs: Short CBC 11/25/22 Range/Units 10:15 WBC 17.1 H (4.0-11.0) 10^3/uL Hgb 8.9 L (14.0-18.0) g/dL Hct 28.4 L (42.0-54.0) % Plt Count 353 (150-450) 10^3/uL BMP 11/25/22 10:15 Sodium 133 L Potassium 4.5 Chloride 103 Carbon Dioxide 22.0 BUN 30.0 H Creatinine 1.49 H Glucose 158 H Calcium 8.7 Liver Function 11/25/22 Range/Units 10:15 Total Bilirubin 0.4 (0.2-1.0) mg/dL AST 16 (15-37) U/L ALT 8 L (16-63) U/L Alkaline Phosphatase 132 H (46-116) U/L Albumin 1.6 L (3.4-5.0) g/dL Assessment and Plan Assessment and Plan (1) Cellulitis of buttock: Assessment and Plan: will start zyvox and Zosyn from prior cultures of proteus, strep and enterococcus. wound consult. (2) Leukocytosis: Assessment and Plan: most likely secondary to #1, will check ESR, CRP, recheck daily (3) Neurogenic bladder: Assessment and Plan: continue home medications (4) Diabetes 1.5, managed as type 2: Assessment and Plan: hold orals, check poc glucose QAC and Qhs check ha1c in the morning (5) HTN (hypertension): Assessment and Plan: continue home meds (6) Paraplegic spinal paralysis: Assessment and Plan: wheelchair/bed bound (7) Iron deficiency anemia: Assessment and Plan: continue to monitor, has received transfusions in the past, stable at 8.6, follows with hematology, takes daily iron (8) Itching: Assessment and Plan: will try some Vistaril Plan full code lovenox for DVT prophylaxis patient is inpatient status and is expected to stay more than 2 midnights
[2022-11-25 13:37] LABS: C Reactive Protein 32.9 mg/dL (<=1.0)
[2022-11-25 13:39] LABS: Erythrocyte Sedimentation Rate 108 mm/hr (<=20)
[2022-11-25] MEDS: PIPERACILLIN SODIUM/TAZOBACTAM 4.5 GM in 0.9 % SODIUM CHLORIDE 50 ML IV (13:50)
[2022-11-25] MEDS: LACTATED RINGER'S SOLUTION 1,000 ML 125 ML IV (14:59)
--- NOTE | 2022-11-25 15:22 | PHOTOS ---
right medial ankle
--- NOTE | 2022-11-25 15:33 | PHOTOS ---
right lateral ankle
--- NOTE | 2022-11-25 15:40 | PHOTOS ---
left ant lower leg
--- NOTE | 2022-11-25 15:41 | PHOTOS ---
left great toe
--- NOTE | 2022-11-25 15:43 | PHOTOS ---
left 5th met
--- NOTE | 2022-11-25 15:44 | PHOTOS ---
left lateral ankle
--- NOTE | 2022-11-25 15:45 | PHOTOS ---
left posterior leg
[2022-11-25] MEDS: LINEZOLID IN DEXTROSE 5% 600 MG/300 ML PIGGYBACK 300 MG IV (16:05)
[2022-11-25] MEDS: INSULIN ASPART 300 UNIT/3 ML PEN SUBQ ×2 (16:10→21:02)
--- NOTE | 2022-11-25 16:33 | PM.CN ---
Consult Note: [facility] Data of Consult Consult date: 11/25/22 Requesting Physician: Kerry Contreras DO Primary Care Provider: Fidel Reis MD Consult Narrative Reason for consult: multiple open ulcers to bilateral lower legs, buttocks area cc:: CC: Kerry Contreras DO [facility] Medical History (Updated 11/25/22 @ 14:36 by Kylie Crockett) Surgical History (Updated 11/25/22 @ 14:36 by Kylie Crockett) Family History (Updated 11/25/22 @ 14:36 by Kylie Crockett) Mother Family history of hypertension Social History (Updated 11/25/22 @ 14:37 by Kylie Crockett) Within the past year, how often did you have a drink containing alcohol: never Within the past year, how many standard drinks containing alcohol did you have on a typical day: 1 or 2 Within the past year, how often did you have six or more drinks on one occasion: never Total score: 0 Score interpretation: A score less than 4 is consistent with normal alcohol consumption. Smoking status: Never smoker Non-prescribed substance use: denies use Previous occupational history: retired Highest level of school completed/degree received: high school graduate Are you now , , , , never or living with a partner: In a typical week, how many times do you talk on the telephone with family, friends, or neighbors: 3 or more times per week How often do you get together with friends or relatives: twice per week How often do you attend amish or mormon services: never Do you belong to any clubs or organizations such as amish groups unions, fraternal or athletic groups, or school groups: no Total score: 2 Score interpretation: A score of greater than or equal to 2 indicates the lowest level of social isolation. Little interest or pleasure in doing things: not at all Feeling down, depressed, or hopeless: not at all Feel stressed/tense/nervous/anxious/difficulty sleeping: not at all Do you think of yourself as: straight/heterosexual Gender Identity: male Meds Home Medications and Allergies Home Medications Medication Instructions Recorded Confirmed Type amlodipine 10 mg tablet 10 mg PO DAILY 10/06/22 11/25/22 History atenolol 100 mg tablet 100 mg PO DAILY 10/06/22 11/25/22 History citalopram 40 mg tablet 40 mg PO DAILY 10/06/22 11/25/22 History glipizide 10 mg tablet 10 mg PO DAILY 10/06/22 11/25/22 History lisinopril 20 mg tablet 20 mg PO DAILY 10/06/22 11/25/22 History oxybutynin chloride 15 mg 15 mg PO DAILY 10/06/22 11/25/22 History tablet,extended release 24 hr sitagliptin phosphate 100 mg 100 mg PO DAILY 10/06/22 11/25/22 History tablet (Januvia) ferrous sulfate 325 mg (65 mg 65 mg PO DAILY 11/25/22 11/25/22 History iron) tablet Allergies Allergy/AdvReac Type Severity Reaction Status Date / Time vancomycin Allergy Verified 10/06/22 19:37 Exam Constitutional Vital Signs, click to edit/add: Last Vital Signs Temp 99.1 F 11/25/22 14:38 Pulse 71 11/25/22 14:38 Resp 18 11/25/22 14:38 BP 148/69 H 11/25/22 14:38 Pulse Ox 95 11/25/22 14:38 O2 Del Method Room Air 11/25/22 14:38 Results Labs Labs: Short CBC 11/25/22 Range/Units 10:15 WBC 17.1 H (4.0-11.0) 10^3/uL Hgb 8.9 L (14.0-18.0) g/dL Hct 28.4 L (42.0-54.0) % Plt Count 353 (150-450) 10^3/uL BMP 11/25/22 10:15 Sodium 133 L Potassium 4.5 Chloride 103 Carbon Dioxide 22.0 BUN 30.0 H Creatinine 1.49 H Glucose 158 H Calcium 8.7 Liver Function 11/25/22 Range/Units 10:15 Total Bilirubin 0.4 (0.2-1.0) mg/dL AST 16 (15-37) U/L ALT 8 L (16-63) U/L Alkaline Phosphatase 132 H (46-116) U/L Albumin 1.6 L (3.4-5.0) g/dL Assessment and Plan Assessment and Plan (1) Cellulitis of buttock: (2) Leukocytosis: (3) Neurogenic bladder: (4) Diabetes 1.5, managed as type 2: (5) HTN (hypertension): (6) Paraplegic spinal paralysis: (7) Iron deficiency anemia: (8) Itching: Plan Patient seen today for assessment of multiple open wound to bilateral lower legs and trunk/buttocks area. Patient was seen by me on last admission. He is a patient at [facility]. Overall buttocks skin is improving per caregiver. Appears to have a contact dermatitis of some kind. It does not appear to be actively infected. Ulcers do not have odor or foul drainage. Skin is not warm or weeping. Patient has open ulcers to left ischial, right ischial, coccyx and sacrum. Photos of all areas taken. Applied triad wound paste to intact periwounds. Sacral ulcer with beefy red wound bed, no odor noted. Minimal drainage. No bone palpated. Coccyx area with some areas of eschar scattered, most likely from friction/shear. Left ischial wound has a small opening so unable to visualize wound bed. Depth with cotton tipped applicator check. No bone palpated. Right ischial wound largest of the trunk ulcers. Wound bed beefy red, smooth. No bone noted. Patient's right lower leg has open wounds to the lateral, medial and heel area. Photos of all areas taken. Right lateral ankle is pale pink with yellow fibrin noted in wound bed. No s/sx of infection noted. Right medial ankle ulcer is pale pink with yellow fibrin noted. Superficial with no s/sx of infection. Right medial heel is 100% eschar covered. Dry. No s/sx of infection. Patient's left lower leg has open wounds to the medial heel, anterior lower leg, posterior lower leg, lateral ankle, great toe, 5th plantar metatarsal head. Photos of all areas taken. Left medial heel is macerated, irregular border. Superficial. No s/sx of infection. Left anterior lower leg appears to be a blistered area that opened. Area is superficial, pink. Minimal drainage. No s/sx of infection. Left posterior lower leg appears to be a blistered area that opened. Area is beefy red, minimal amount of bloody serous drainage. No s/sx of infection. Left lateral ankle is 100% black eschar. No surrounding erythema noted. Left great toe with intact blood blisters noted. Nothing draining at this time. Left 5th plantar metatarsal head ulceration has a large callus surrounding an open area that is flutuant/loose tissue with open ulceration noted. Purulent drainage expressed from this area. The undermining noted is concerning. Dr. Bahena and Dr. Emmanuel notified of this ulcer. They will assess later today. Treatment plan: Triad to intact skin to buttocks/ischial area. Normal saline moistened gauze to open ulcerations to sacrum, coccyx, bilateral ischials daily. Cover with ABD pads. Use brief to hold dressing in place or use very minimal tape. Patient reports he does not want a different mattress type. Please continue to encourage repositioning. Calcium alginate to right lower leg ulcerations, left medial heel and left 5th metatarsal ulcer. Cover with gauze/kerlix. Wrap with ricco bandages. Change daily. Use air waffle boot to off load. Xeroform gauze to left lateral ankle, left anterior and left posterior ulcers. Cover with gauze/kerlix. Wrap with ricco bandages. Change daily. Use air waffle boot to off load. Notes/Orders sent to Dr. Contreras for review.
[2022-11-25 16:37] LABS: Glucometer 208 mg/dL (74-106)
--- NOTE | 2022-11-25 17:10 | P.PODCN_ITS ---
[facility] - Podiatry Data of Consult Patient: known to practice within the last 3 years Consult date: 11/25/22 Requesting physician: Kerry Contreras DO Primary care provider: Fidel Reis MD Consult Narrative Reason for consult: b/l foot wounds, concerns of infection Narrative: Patient is a 62-year-old male with past medical history significant for paraplegic secondary to cauda equina in 2003, hypertension, diabetes, hypertension who was admitted to the hospital today after concerns of weakness and worsening appearance of his sacral and left foot wound. Patient also has numerous ulceration on the right lower extremity. He normally sees care at [facility]. He states his last visit there was about 1 month ago. His next appointment was post to be next week. Noticed over the past few days there has been increased continence which the patient's family member believes to be causing worsening of the sacral wound. She was also concerned that the left plantar forefoot wound to drain with yellow discharge. He denied any other complaints at the time of my visit. He denied any fever chills nausea vomiting shortness of breath or chest pain upon time of visit.. cc:: CC: Kerry Contreras DO Review of Systems ROS Status of ROS 10 or more systems reviewed and unremarkable except as noted in history and below [facility] Medical History (Updated 11/25/22 @ 17:20 by Raghavendra Emmanuel DPM) Surgical History (Updated 11/25/22 @ 14:36 by Kylie Crockett) Family History (Updated 11/25/22 @ 14:36 by Kylie Crockett) Mother Family history of hypertension Social History (Updated 11/25/22 @ 14:37 by Kylie Crockett) Within the past year, how often did you have a drink containing alcohol: never Within the past year, how many standard drinks containing alcohol did you have on a typical day: 1 or 2 Within the past year, how often did you have six or more drinks on one occasion: never Total score: 0 Score interpretation: A score less than 4 is consistent with normal alcohol consumption. Smoking status: Never smoker Non-prescribed substance use: denies use Previous occupational history: retired Highest level of school completed/degree received: high school graduate Are you now , , , , never or living with a partner: In a typical week, how many times do you talk on the telephone with family, friends, or neighbors: 3 or more times per week How often do you get together with friends or relatives: twice per week How often do you attend zoroastrianism or congregation services: never Do you belong to any clubs or organizations such as zoroastrianism groups unions, fraternal or athletic groups, or school groups: no Total score: 2 Score interpretation: A score of greater than or equal to 2 indicates the lowest level of social isolation. Little interest or pleasure in doing things: not at all Feeling down, depressed, or hopeless: not at all Feel stressed/tense/nervous/anxious/difficulty sleeping: not at all Do you think of yourself as: straight/heterosexual Gender Identity: male Exam Narrative Exam Narrative: Vascular: DP and PT pulses faintly palpable secondary to edema. CFT sluggish but intact. 2+ pitting edema bilateral lower extremities, left slightly greater than right. Left lower extremity to touch than the right. No ascending lympha ngitis. Neuro: Light touch and gross sensation absent. Protective sensation absent. Derm: Multiple full-thickness ulcerations noted to the right lower extremity at the medial lateral ankle with fibrous brace. No probing to bone. Serous drainage noted. No surrounding erythema malodor or purulence. There is a stable dry eschar noted to the right heel with no signs of infection. Left lower extremity there is a full-thickness ulceration to the plantar lateral aspect of the fifth metatarsal head. Approximately 2 cc of fibropurulent drainage upon debridement. Surrounding erythema to forefoot region. Hyperkeratotic rim. Probes to subcutaneous layer. No probing to bone tunneling or undermining. Fibronecrotic base. There are also partial-thickness ulcerations noted to the plantar heel as well as the lateral and medial malleoli of the left lower extremity. There are numerous partial-thickness venous stasis type ulcerations to the mid tibia region bilaterally. Musculoskeletal: Paraplegic at baseline. No palpatory tenderness elicited upon exam. Passive range of motion is supple without crepitus. There is no palpable fluctuance crepitus or bogginess. Right foot with noted partial fifth ray resection. Compartment soft compressible, no pain with calf or thigh compression. Constitutional Vital Signs, click to edit/add: Last Vital Signs Temp 99.1 F 11/25/22 14:38 Pulse 71 11/25/22 14:38 Resp 18 08/30/23 14:38 BP 148/69 H 11/25/22 14:38 Pulse Ox 95 11/25/22 14:38 O2 Del Method Room Air 11/25/22 14:38 Assessment and Plan Assessment and Plan (1) Cellulitis of buttock: (2) Leukocytosis: (3) Neurogenic bladder: (4) Diabetes 1.5, managed as type 2: (5) Paraplegic spinal paralysis: (6) Venous stasis ulcer of 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: (7) Cellulitis of left lower extremity: (8) Non-pressure chronic ulcer of other part of left foot with fat layer exposed: Plan Patient examined evaluated. All findings discussed with the patient all questi ons were answered to patient satisfaction. Labs and vitals reviewed Leukocytosis with ESR 108 and CRP 32.9. Ulcerations to the legs in the right foot as well as the left ankle and heel appear stable and noninfected. The left plantar forefoot ulceration appears mildly infected with surrounding cellulitis. There is significant hyperkeratotic skin with fibrotic slough within the wound bed and superficial epidermolysis around the wound. After verbal consent was obtained the left plantar forefoot wound was debrided excision of nonviable skin and soft tissue down to and including the subcutaneou s layer. Following debridement approximately 2 cc of fibropurulent drainage was noted with next granular and necrotic wound bed. Dressing of Betadine moistened gauze dry sterile dressing was applied to the left plantar forefoot wound. Stasis ulcerations of the bilateral lower extremities were covered with Xeroform and loose Schafer compressive dressing was applied bilaterally. These may be changed every other day. Following debridement the ulceration did not probe to bone and there was very minimal purulence encountered. While this may be mildly infected, I do not think it is solely the source of his leukocytosis and elevated ESR/CRP. Evaluate the sacral wound however report from the wound nurse suggest that the sacral wound is potentially the source of greater than infection. Continue with IV antibiotics per primary. Bilateral ankle and foot x-rays been ordered and will be reviewed once obtained. We will evaluate for any changes in the bone cortices to suggest the presence or progression of osteomyelitis. We will see him one week from discharge He may call for questions or concerns We will follow
--- NOTE | 2022-11-25 19:20 | XR_ITS ---
The [address] [address] Patient Name: JOEL STINSON MRN: [id number] date: 1960 Sex: M Assigned Patient Location: [place] Current Patient Location: [place] Accession/Order Number: [id number] Exam Date: 11/25/2022 19:25 Report Date: 11/25/2022 20:40 At the request of: KALANI RIOS Procedure: XR ankle SARA min 3V EXAM: XR ankle SARA min 3V HISTORY: chronic wounds, infection COMPARISON: 10/07/2022 TECHNIQUE: 3 views of each ankle FINDINGS: Right: Overall bony architecture is normal. Periosteal reaction is noted along the distal tibia margins, stable compared with prior study of 2 months ago. Ankle mortise relationships are intact. Plantar and early posterior calcaneal enthesophytes are noted. Soft tissue swelling is noted, more marked laterally than medially. Left: Overall bony architecture is normal. Ankle mortise relationships are intact. A small plantar calcaneal enthesophyte is noted. Soft tissue swelling, more marked laterally than medially. XR/XR ankle SARA min 3V IMPRESSION: Soft tissue swelling. No convincing evidence for osteomyelitis within either ankle. Electronically authenticated by: Robin PENNY Date: 11/25/2022 20:40
--- NOTE | 2022-11-25 19:20 | XR_ITS ---
The [address] [address] Patient Name: JOEL STINSON MRN: [id number] date: 1960 Sex: M Assigned Patient Location: [place] Current Patient Location: [place] Accession/Order Number: [id number] Exam Date: 11/25/2022 19:25 Report Date: 11/25/2022 19:56 At the request of: KALANI RIOS Procedure: XR foot SARA min 3V EXAM: XR foot SARA min 3V HISTORY: chronic wounds; infection COMPARISON: None. TECHNIQUE: 3 views of each foot FINDINGS: Right: Again, the fifth toe and distal aspect of the fifth metatarsal head been resected. Other bony structures are intact. Overall bony architecture is normal. There is narrowing at the first MP joint with early osteophytosis. Plantar and posterior calcaneal enthesophytes are noted. Forefoot soft tissue swelling is noted. No soft tissue gas is appreciated. Left: Overall bony architecture is normal. There is narrowing at the first MP joint and the first tarsometatarsal joint. Other articulations are satisfactorily maintained. A plantar calcaneal enthesophyte is noted. Forefoot soft tissue swelling is noted. XR/XR foot SARA min 3V IMPRESSION: 1. Stable findings associated with previous right fifth ray resection. There is forefoot soft tissue swelling without soft tissue gas or convincing plain film evidence for osteomyelitis. 2. Degenerative changes at proximal and distal margins of the left first metatarsal. There is forefoot soft tissue swelling without soft tissue gas or convincing plain film evidence for osteomyelitis. Electronically authenticated by: Robin PENNY Date: 11/25/2022 19:56
[2022-11-25 21:00] LABS: Glucometer 213 mg/dL (74-106)
[2022-11-25] MEDS: PIPERACILLIN SODIUM/TAZOBACTAM 3.375 GM in 0.9 % SODIUM CHLORIDE 50 ML IV (21:01)
[2022-11-25 22:40] LABS: Bilirubin Urine NEGATIVE (NEGATIVE); Blood Urine LARGE (NEGATIVE); Clarity Urine CLEAR (CLEAR); Color Urine LT. YELLOW (YELLOW); Glucose Urine UA NEGATIVE (NEGATIVE); Ketones Urine NEGATIVE (NEGATIVE); Leukocyte Esterase Urine MODERATE (NEGATIVE); Nitrite Urine POSITIVE (NEGATIVE); Protein Urine >=300 mg/dL (NEG/TRACE); Specific Gravity Urine 1.025 (1.005-1.025); Urobilinogen Urine 0.2 EU/dL (0.2-1.0); pH Urine 5.5 (5.0-9.0)
[2022-11-25 22:46] LABS: Urine Microscopic Indicated YES
[2022-11-25 22:48] LABS: Bacteria Urine MODERATE #/HPF (NONE SEEN); Cast Seen? NONE SEEN #/LPF (NONE SEEN); Crystals Seen? None Seen #/HPF (None Seen); Mucus Urine NONE SEEN (NONE SEEN); Squamous Epithelial Cell Urine FEW #/LPF (NONE/RARE); Urine Culture Indicated YES; WBC Urine 50-75 #/HPF (NONE SEEN)
[2022-11-26] VITALS (30 sets, daily range): BP systolic 123–146; BP diastolic 57–69; PULSE 61–72; RESP 16–18; TEMP 36.6–37; O2SAT 90–96; BMI 32.8
[2022-11-26] MEDS: LACTATED RINGER'S SOLUTION 1,000 ML 125 ML IV (03:34)
[2022-11-26] MEDS: LINEZOLID IN DEXTROSE 5% 600 MG/300 ML PIGGYBACK 300 MG IV ×2 (03:39→17:28)
[2022-11-26 05:10] LABS: Basophils Percent Auto 0.3 % (0.2-2.0); Eosinophils Absolute Auto 0.9 10^3/uL (0.0-0.7); Eosinophils Percent Auto 8.4 % (0.9-7.0); Immature Granulocytes Abs Auto 0.07 10^3/uL (0.00-0.03); Immature Granulocytes Pct Auto 0.6 % (0.0-0.5); Lymphocytes Absolute Auto 1.8 10^3/uL (1.2-3.8); Lymphocytes Percent Auto 16.8 % (20.5-60.0); Mean Corpuscular HGB Conc 31.4 g/dL (29.9-35.2); Mean Corpuscular Hemoglobin 24.9 pg (25.9-34.0); Mean Corpuscular Volume 79.4 fL (80.0-94.0); Mean Platelet Volume 8.6 fL (9.5-13.5); Monocytes Percent Auto 8.9 % (1.7-12.0); Platelet Count 234 10^3/uL (150-450); Red Blood Count 2.77 10^6/uL (4.70-6.10); Red Cell Distribution Width 16.8 % (11.0-15.0); White Blood Count 10.8 10^3/uL (4.0-11.0)
[2022-11-26 05:18] LABS: Hemoglobin 6.9 g/dL (14.0-18.0)
[2022-11-26 05:25] LABS: Estimated Average Glucose 163 mg/dL; Glycohemoglobin A1C 7.3 % (4.5-6.2)
[2022-11-26 05:37] LABS: Alanine Aminotransferase <6 U/L (16-63); Albumin Globulin Ratio 0.2; Albumin Level 1.3 g/dL (3.4-5.0); Alkaline Phosphatase 96 U/L (46-116); Anion Gap 11.4; Aspartate Amino Transferase 12 U/L (15-37); BUN Creatinine Ratio 16.9; Bilirubin Total 0.2 mg/dL (0.2-1.0); Calcium 7.7 mg/dL (8.5-10.1); Carbon Dioxide 22.2 mmol/L (21.0-32.0); Chloride 108 mmol/L (98-107); Estimated GFR (African America 59 (>=60); Estimated GFR (Non-African Ame 48 (>=60); Globulin 5.3 g/dL; Glucose 123 mg/dL (74-106); Potassium 3.6 mmol/L (3.5-5.1); Sodium 138 mmol/L (136-145); Total Protein 6.6 g/dL (6.4-8.2)
[2022-11-26] MEDS: PIPERACILLIN SODIUM/TAZOBACTAM 3.375 GM in 0.9 % SODIUM CHLORIDE 50 ML IV ×3 (05:55→21:29)
[2022-11-26 06:43] LABS: Hematocrit 22.3 % (42.0-54.0); Hemoglobin 6.9 g/dL (14.0-18.0)
--- NOTE | 2022-11-26 07:24 | PM.GSCN ---
[facility] Medical History (Updated 11/25/22 @ 17:20 by Raghavendra Emmanuel DPM) Surgical History (Updated 11/25/22 @ 14:36 by Kylie Crockett) Family History (Updated 11/25/22 @ 14:36 by Kylie Crockett) Mother Family history of hypertension Social History (Updated 11/25/22 @ 14:37 by Kylie Crockett) Within the past year, how often did you have a drink containing alcohol: never Within the past year, how many standard drinks containing alcohol did you have on a typical day: 1 or 2 Within the past year, how often did you have six or more drinks on one occasion: never Total score: 0 Score interpretation: A score less than 4 is consistent with normal alcohol consumption. Smoking status: Never smoker Non-prescribed substance use: denies use Previous occupational history: retired Highest level of school completed/degree received: high school graduate Are you now , , , , never or living with a partner: In a typical week, how many times do you talk on the telephone with family, friends, or neighbors: 3 or more times per week How often do you get together with friends or relatives: twice per week How often do you attend methodist or quaker services: never Do you belong to any clubs or organizations such as methodist groups unions, fraternal or athletic groups, or school groups: no Total score: 2 Score interpretation: A score of greater than or equal to 2 indicates the lowest level of social isolation. Little interest or pleasure in doing things: not at all Feeling down, depressed, or hopeless: not at all Feel stressed/tense/nervous/anxious/difficulty sleeping: not at all Do you think of yourself as: straight/heterosexual Gender Identity: male Meds Home Medications and Allergies Home Medications Medication Instructions Recorded Confirmed Type amlodipine 10 mg tablet 10 mg PO DAILY 10/06/22 11/25/22 History atenolol 100 mg tablet 100 mg PO DAILY 10/06/22 11/25/22 History citalopram 40 mg tablet 40 mg PO DAILY 10/06/22 11/25/22 History glipizide 10 mg tablet 10 mg PO DAILY 10/06/22 11/25/22 History lisinopril 20 mg tablet 20 mg PO DAILY 10/06/22 11/25/22 History oxybutynin chloride 15 mg 15 mg PO DAILY 10/06/22 11/25/22 History tablet,extended release 24 hr sitagliptin phosphate 100 mg 100 mg PO DAILY 10/06/22 11/25/22 History tablet (Januvia) ferrous sulfate 325 mg (65 mg 65 mg PO DAILY 11/25/22 11/25/22 History iron) tablet Allergies Allergy/AdvReac Type Severity Reaction Status Date / Time vancomycin Allergy Verified 10/06/22 19:37 Exam Constitutional Vital Signs, click to edit/add: Last Vital Signs Temp 98.3 F 11/26/22 06:04 Pulse 63 11/26/22 06:04 Resp 18 11/26/22 06:04 BP 137/64 11/26/22 06:04 Pulse Ox 95 11/26/22 06:04 O2 Del Method Room Air 11/26/22 06:04 Results Labs Labs: Abnormal lab results 11/25/22 11/25/22 11/25/22 Range/Units 10:15 16:07 20:58 WBC 17.1 H (4.0-11.0) 10^3/uL RBC 3.58 L (4.70-6.10) 10^6/uL Hgb 8.9 L (14.0-18.0) g/dL Hct 28.4 L (42.0-54.0) % MCV 79.3 L (80.0-94.0) fL MCH 24.9 L (25.9-34.0) pg RDW 16.8 H (11.0-15.0) % MPV 8.6 L (9.5-13.5) fL Neut % (Auto) 75.1 H (43.0-75.0) % Lymph % (Auto) 10.9 L (20.5-60.0) % Eos % (Auto) (0.9-7.0) % Neut # (Auto) 12.9 H (1.4-6.5) 10^3/uL [place] # (Auto) 1.3 H (0.3-0.8) 10^3/uL Eos # (Auto) 0.9 H (0.0-0.7) 10^3/uL Abs Immat Gran (auto) 0.11 H (0.00-0.03) 10^3/uL Imm/Tot Granulo (auto) 0.6 H (0.0-0.5) % ESR 108 H (<=20) mm/hr Sodium 133 L (136-145) mmol/L Chloride (98-107) mmol/L BUN 30.0 H (7.0-18.0) mg/dL Creatinine 1.49 H (0.70-1.30) mg/dL Est GFR ( Amer) 58 L (>=60) Est GFR (Non-Af Amer) 48 L (>=60) Glucose 158 H (74-106) mg/dL Hemoglobin A1c (4.5-6.2) % Calcium (8.5-10.1) mg/dL AST (15-37) U/L ALT 8 L (16-63) U/L Alkaline Phosphatase 132 H (46-116) U/L C-Reactive Protein 32.9 H (<=1.0) mg/dL Total Protein 8.5 H (6.4-8.2) g/dL Albumin 1.6 L (3.4-5.0) g/dL Urine Protein (NEG/TRACE) mg/dL Urine Occult Blood (NEGATIVE) Urine Nitrite (NEGATIVE) Ur Leukocyte Esterase (NEGATIVE) Urine RBC (0-2) #/HPF Urine WBC (NONE SEEN) #/HPF Ur Squamous Epith Cells (NONE/RARE) #/LPF Urine Bacteria (NONE SEEN) #/HPF POC Glucose 208 H 213 H (74-106) mg/dL 11/25/22 11/26/22 11/26/22 Range/Units 22:32 04:45 06:35 WBC (4.0-11.0) 10^3/uL RBC 2.77 L (4.70-6.10) 10^6/uL Hgb 6.9 L* D 6.9 L* (14.0-18.0) g/dL Hct 22.0 L* 22.3 L* (42.0-54.0) % MCV 79.4 L (80.0-94.0) fL MCH 24.9 L (25.9-34.0) pg RDW 16.8 H (11.0-15.0) % MPV 8.6 L (9.5-13.5) fL Neut % (Auto) (43.0-75.0) % Lymph % (Auto) 16.8 L (20.5-60.0) % Eos % (Auto) 8.4 H (0.9-7.0) % Neut # (Auto) 7.0 H (1.4-6.5) 10^3/uL [place] # (Auto) 1.0 H (0.3-0.8) 10^3/uL Eos # (Auto) 0.9 H (0.0-0.7) 10^3/uL Abs Immat Gran (auto) 0.07 H (0.00-0.03) 10^3/uL Imm/Tot Granulo (auto) 0.6 H (0.0-0.5) % ESR (<=20) mm/hr Sodium (136-145) mmol/L Chloride 108 H (98-107) mmol/L BUN 25.0 H (7.0-18.0) mg/dL Creatinine 1.48 H (0.70-1.30) mg/dL Est GFR ( Amer) 59 L (>=60) Est GFR (Non-Af Amer) 48 L (>=60) Glucose 123 H (74-106) mg/dL Hemoglobin A1c 7.3 H (4.5-6.2) % Calcium 7.7 L (8.5-10.1) mg/dL AST 12 L (15-37) U/L ALT <6 L (16-63) U/L Alkaline Phosphatase (46-116) U/L C-Reactive Protein (<=1.0) mg/dL Total Protein (6.4-8.2) g/dL Albumin 1.3 L (3.4-5.0) g/dL Urine Protein >=300 A (NEG/TRACE) mg/dL Urine Occult Blood Large A (NEGATIVE) Urine Nitrite Positive A (NEGATIVE) Ur Leukocyte Esterase Moderate A (NEGATIVE) Urine RBC 5-10 A (0-2) #/HPF Urine WBC 50-75 A (NONE SEEN) #/HPF Ur Squamous Epith Cells Few A (NONE/RARE) #/LPF Urine Bacteria Moderate A (NONE SEEN) #/HPF POC Glucose (74-106) mg/dL Diabetes panel 11/25/22 11/26/22 Range/Units 10:15 04:45 Sodium 133 L 138 (136-145) mmol/L Potassium 4.5 3.6 (3.5-5.1) mmol/L Chloride 103 108 H (98-107) mmol/L Carbon Dioxide 22.0 22.2 (21.0-32.0) mmol/L BUN 30.0 H 25.0 H (7.0-18.0) mg/dL Creatinine 1.49 H 1.48 H (0.70-1.30) mg/dL Glucose 158 H 123 H (74-106) mg/dL Hemoglobin A1c 7.3 H (4.5-6.2) % Calcium 8.7 7.7 L (8.5-10.1) mg/dL AST 16 12 L (15-37) U/L ALT 8 L <6 L (16-63) U/L Alkaline Phosphatase 132 H 96 (46-116) U/L Total Protein 8.5 H 6.6 (6.4-8.2) g/dL Albumin 1.6 L 1.3 L (3.4-5.0) g/dL Calcium panel 11/25/22 11/26/22 Range/Units 10:15 04:45 Calcium 8.7 7.7 L (8.5-10.1) mg/dL Albumin 1.6 L 1.3 L (3.4-5.0) g/dL Pituitary panel 11/25/22 11/26/22 Range/Units 10:15 04:45 Sodium 133 L 138 (136-145) mmol/L Potassium 4.5 3.6 (3.5-5.1) mmol/L Chloride 103 108 H (98-107) mmol/L Carbon Dioxide 22.0 22.2 (21.0-32.0) mmol/L BUN 30.0 H 25.0 H (7.0-18.0) mg/dL Creatinine 1.49 H 1.48 H (0.70-1.30) mg/dL Glucose 158 H 123 H (74-106) mg/dL Calcium 8.7 7.7 L (8.5-10.1) mg/dL Adrenal panel 11/25/22 11/26/22 Range/Units 10:15 04:45 Sodium 133 L 138 (136-145) mmol/L Potassium 4.5 3.6 (3.5-5.1) mmol/L Chloride 103 108 H (98-107) mmol/L Carbon Dioxide 22.0 22.2 (21.0-32.0) mmol/L BUN 30.0 H 25.0 H (7.0-18.0) mg/dL Creatinine 1.49 H 1.48 H (0.70-1.30) mg/dL Glucose 158 H 123 H (74-106) mg/dL Calcium 8.7 7.7 L (8.5-10.1) mg/dL Total Bilirubin 0.4 0.2 (0.2-1.0) mg/dL AST 16 12 L (15-37) U/L ALT 8 L <6 L (16-63) U/L Alkaline Phosphatase 132 H 96 (46-116) U/L Total Protein 8.5 H 6.6 (6.4-8.2) g/dL Albumin 1.6 L 1.3 L (3.4-5.0) g/dL All other labs normal. Assessment and Plan Assessment and Plan (1) Cellulitis of buttock: (2) Leukocytosis: (3) Neurogenic bladder: (4) Diabetes 1.5, managed as type 2: (5) Paraplegic spinal paralysis: (6) Venous stasis ulcer of 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: (7) Cellulitis of left lower extremity: (8) Non-pressure chronic ulcer of other part of left foot with fat layer exposed:
--- NOTE | 2022-11-26 08:55 | P.PN_ITS ---
Progress Note: Subjective Subjective Interval history: patient is a 62-year-old gentleman with past medical history significant for paraplegic secondary to cauda equina in 2003, hypertension, diabetes, hypertension, iron deficiency anemia, who presented to the ED with weakness. 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 She had noticed some increase in size and erythema of his sacral wound. Patient has chronic wounds to Right lower extremities as well as his buttocks. He was also last admitted for cellulitis in september. His reports that since that time when urinary catheter was removed, despite urinary dilation, he still continues to have urinary incontinence in between straight cathing. This urinary incontinence is causing worsening of sacral wound. She also notes he has been itching his skin. No fevers or chills, no n/v/d this morning. He notes the itching is improved, currently getting blood transfusion. Exam Narrative Exam Narrative: General: Patient is alert, and oriented to person, place and time with normal affect, proper hygiene Skin: bilateral lower ext have dressings that are c/d/i Head: atraumatic, acephalic Eyes: PERRLA, no nystagmus present, conjunctiva clear, no scleral icterus Heart: Normal rate and rhythm, no murmurs/rubs/gallops Lungs: no audible wheezes, crackles and normal breath sounds all lung bates Abdomen: Normal audible bowel sounds, no distension, No palpable masses, no organomegaly, no rebound/guarding/ or rigidity Vascular: Normal carotid, radial, femoral, posterior tibial, and dorsalis pedis pulses Lymph: no supraclavicular, axillary, or anterior/posterior cervical adenopathy Neuro: CN II-X grossly intact Constitutional Vital Signs, click to edit/add: Last Vital Signs Temp 98.2 F 11/26/22 08:40 Pulse 64 11/26/22 08:40 Resp 18 11/26/22 08:40 BP 142/64 H 11/26/22 08:40 Pulse Ox 93 L 11/26/22 08:40 O2 Del Method Room Air 11/26/22 08:40 Progress Note: Objective Labs Labs: Short CBC 11/25/22 11/26/22 11/26/22 Range/Units 10:15 04:45 06:35 WBC 17.1 H 10.8 (4.0-11.0) 10^3/uL Hgb 8.9 L 6.9 L* D 6.9 L* (14.0-18.0) g/dL Hct 28.4 L 22.0 L* 22.3 L* (42.0-54.0) % Plt Count 353 234 (150-450) 10^3/uL BMP 11/25/22 11/26/22 10:15 04:45 Sodium 133 L 138 Potassium 4.5 3.6 Chloride 103 108 H Carbon Dioxide 22.0 22.2 BUN 30.0 H 25.0 H Creatinine 1.49 H 1.48 H Glucose 158 H 123 H Calcium 8.7 7.7 L Liver Function 11/25/22 11/26/22 Range/Units 10:15 04:45 Total Bilirubin 0.4 0.2 (0.2-1.0) mg/dL AST 16 12 L (15-37) U/L ALT 8 L <6 L (16-63) U/L Alkaline Phosphatase 132 H 96 (46-116) U/L Albumin 1.6 L 1.3 L (3.4-5.0) g/dL Urine 11/25/22 Range/Units 22:32 Urine Color Lt. yellow (YELLOW) Urine Clarity Clear (CLEAR) Urine pH 5.5 (5.0-9.0) Ur Specific [place] 1.025 (1.005-1.025) Urine Protein >=300 A (NEG/TRACE) mg/dL Urine Glucose (UA) Negative (NEGATIVE) mg/dL Progress Note: A&P Assessment and Plan (1) Cellulitis of buttock: (2) Leukocytosis: (3) Neurogenic bladder: (4) Diabetes 1.5, managed as type 2: (5) Paraplegic spinal paralysis: (6) Venous stasis ulcer of 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: (7) Cellulitis of left lower extremity: (8) Non-pressure chronic ulcer of other part of left foot with fat layer exposed: (9) Iron deficiency anemia: (10) Blood transfusion during current hospitalisation: Plan Assessment and Plan (1) Cellulitis of buttock: Assessment and Plan: will start zyvox and Zosyn from prior cultures of proteus, strep and enterococcus. wound consult reviewed and orders have place for dressing changes. (2) Leukocytosis: Assessment and Plan: most likely secondary to #1, ESR, CRP normal (3) Neurogenic bladder: Assessment and Plan: continue home medications, indwelling coker catheter placed (4) Diabetes 1.5, managed as type 2: Assessment and Plan: hold orals, check poc glucose QAC and Qhs check ha1c in the morning (5) HTN (hypertension): Assessment and Plan: continue home meds (6) Paraplegic spinal paralysis: Assessment and Plan: wheelchair/bed bound (7) Iron deficiency anemia: Assessment and Plan: continue to monitor, transfusion today for 6.9 of 2 units, recheck cbc 1 hour after, follows with hematology, takes daily iron (8) Itching: Assessment and Plan: will try some Vistaril which did help Plan full code lovenox for DVT prophylaxis patient is inpatient status, requiring transfusion today
--- NOTE | 2022-11-26 09:26 | DIETREC ---
Nutrition Recommendations: 1. Add Wes (wound healing supplement) 1 packet BID.
[2022-11-26] MEDS: 0.9 % SODIUM CHLORIDE 250 ML IV.SOLN IV (09:57)
[2022-11-26] MEDS: FERROUS SULFATE 325 MG TABLET 65 MG PO (10:01)
[2022-11-26] MEDS: ATENOLOL 50 MG TABLET 100 MG PO (10:01)
[2022-11-26] MEDS: CITALOPRAM HYDROBROMIDE 20 MG TABLET 40 MG PO (10:02)
[2022-11-26] MEDS: AMLODIPINE BESYLATE 5 MG TABLET 10 MG PO (10:02)
[2022-11-26] MEDS: ENOXAPARIN SODIUM 40 MG/0.4 ML SYRINGE SUBQ (10:02)
[2022-11-26] MEDS: OXYBUTYNIN CHLORIDE 5 MG TAB XL 15 MG PO (10:02)
--- NOTE | 2022-11-26 10:39 | CM.NOTE ---
Rounds made with Dr. Contreras. Plan to transfuse 2u PRBCs today explained per Dr. Contreras. No plan for discharge today.
[2022-11-26 11:00] LABS: Glucometer 163 mg/dL (74-106)
--- NOTE | 2022-11-26 12:13 | SWNOTE1 ---
ELO met with pt to discuss dc needs. Pt lives at home with his . He mainly uses a wheelchair at home. Pt does not have any concerns or needs for discharge. His helps care for him at home. Pt does not have any Home Health currently. ELO reviewed Important Message from Medicare form with pt, he voiced understanding and had no questions. Pt signed form, original given to pt and copy placed in chart.
[2022-11-26] MEDS: INSULIN ASPART 300 UNIT/3 ML PEN SUBQ ×3 (12:35→22:15)
[2022-11-26 15:12] LABS: Hematocrit 30.1 % (42.0-54.0); Hemoglobin 8.9 g/dL (14.0-18.0)
[2022-11-26 16:55] LABS: Glucometer 215 mg/dL (74-106)
--- NOTE | 2022-11-26 19:27 | PC.NURSE ---
Patient has red/purple coloration to the buttocks and coccyx area. No new open wounds to area or moisture.
--- NOTE | 2022-11-26 19:58 | PC.NURSE ---
Dressings all over coccyx area intact. Dressing to scrotum intact. Dressing to bilateral feet and lower legs intact.
--- NOTE | 2022-11-26 21:49 | PC.NURSE ---
saline soaked 4x4 dressings applied to 3 open areas to back side and covered with abd dressings.
[2022-11-26 22:05] LABS: Glucometer 183 mg/dL (74-106)
[2022-11-27] VITALS (13 sets, daily range): BP systolic 134–147; BP diastolic 70–73; PULSE 58–71; RESP 18; TEMP 36.4–36.5; O2SAT 94–96
[2022-11-27 05:08] LABS: Basophils Percent Auto 0.4 % (0.2-2.0); Eosinophils Absolute Auto 1.2 10^3/uL (0.0-0.7); Eosinophils Percent Auto 13.2 % (0.9-7.0); Hematocrit 29.3 % (42.0-54.0); Hemoglobin 8.9 g/dL (14.0-18.0); Immature Granulocytes Abs Auto 0.08 10^3/uL (0.00-0.03); Immature Granulocytes Pct Auto 0.9 % (0.0-0.5); Lymphocytes Absolute Auto 1.6 10^3/uL (1.2-3.8); Lymphocytes Percent Auto 16.9 % (20.5-60.0); Mean Corpuscular HGB Conc 30.4 g/dL (29.9-35.2); Mean Corpuscular Hemoglobin 24.9 pg (25.9-34.0); Mean Corpuscular Volume 81.8 fL (80.0-94.0); Mean Platelet Volume 10.3 fL (9.5-13.5); Monocytes Absolute Auto 0.7 10^3/uL (0.3-0.8); Monocytes Percent Auto 7.2 % (1.7-12.0); Neutrophils Absolute Auto 5.7 10^3/uL (1.4-6.5); Neutrophils Percent Auto 61.4 % (43.0-75.0); Platelet Count 174 10^3/uL (150-450); Red Blood Count 3.58 10^6/uL (4.70-6.10); Red Cell Distribution Width 17.1 % (11.0-15.0); White Blood Count 9.3 10^3/uL (4.0-11.0)
[2022-11-27] MEDS: LINEZOLID IN DEXTROSE 5% 600 MG/300 ML PIGGYBACK 150 MG IV (05:09)
[2022-11-27] MEDS: PIPERACILLIN SODIUM/TAZOBACTAM 3.375 GM in 0.9 % SODIUM CHLORIDE 50 ML IV (05:09)
[2022-11-27 05:39] LABS: Alanine Aminotransferase 10 U/L (16-63); Albumin Globulin Ratio 0.2; Albumin Level 1.2 g/dL (3.4-5.0); Alkaline Phosphatase 106 U/L (46-116); Anion Gap 8.8; Aspartate Amino Transferase 43 U/L (15-37); BUN Creatinine Ratio 15.8; Bilirubin Total 0.7 mg/dL (0.2-1.0); Chloride 107 mmol/L (98-107); Estimated GFR (African America >60 (>=60); Estimated GFR (Non-African Ame >60 (>=60); Globulin 6.3 g/dL; Glucose 103 mg/dL (74-106); Sodium 132 mmol/L (136-145); Total Protein 7.5 g/dL (6.4-8.2)
[2022-11-27 06:05] LABS: Potassium 6.8 mmol/L (3.5-5.1)
[2022-11-27 07:59] LABS: Potassium 4.1 mmol/L (3.5-5.1)
[2022-11-27] MEDS: FERROUS SULFATE 325 MG TABLET 65 MG PO (08:54)
[2022-11-27] MEDS: CITALOPRAM HYDROBROMIDE 20 MG TABLET 40 MG PO (08:54)
[2022-11-27] MEDS: ENOXAPARIN SODIUM 40 MG/0.4 ML SYRINGE SUBQ (08:54)
[2022-11-27] MEDS: OXYBUTYNIN CHLORIDE 5 MG TAB XL 15 MG PO (08:54)
[2022-11-27] MEDS: AMLODIPINE BESYLATE 5 MG TABLET 10 MG PO (08:55)
[2022-11-27] MEDS: ATENOLOL 50 MG TABLET 100 MG PO (08:56)
--- NOTE | 2022-11-27 10:39 | CM.NOTE ---
Rounds made with kylie Beltre for pt to discharge to home. No discharge needs identified.
[2022-11-27 11:12] LABS: Glucometer 139 mg/dL (74-106)
--- NOTE | 2022-11-27 12:11 | PM.DS1 ---
DS: Providers Provider Date of admission: 11/25/22 13:18 Primary care physician: Fidel Reis MD Admitting clinician: Kerry Contreras Consults: 11/25/22 13:15 Consult to Wound Care Routine Consulting Provider: Hospitalist Reason for consultation: sacral ulcer Has provider been notified: No Discharging clinician: Kerry Contreras DS: Diagnosis Discharge Diagnosis (1) Cellulitis of buttock: (2) Leukocytosis: (3) Neurogenic bladder: (4) Diabetes 1.5, managed as type 2: (5) Paraplegic spinal paralysis: (6) Venous stasis ulcer of 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: (7) Cellulitis of left lower extremity: (8) Non-pressure chronic ulcer of other part of left foot with fat layer exposed: (9) Iron deficiency anemia: (10) Blood transfusion during current hospitalisation: DS: Summary Hospital Course Hospital Course: patient is a 62-year-old gentleman with past medical history significant for paraplegic secondary to cauda equina in 2003, hypertension, diabetes, hypertension, iron deficiency anemia, who presented to the ED with weakness. 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 She had noticed some increase in size and erythema of his sacral wound. Patient has chronic wounds to Right lower extremities as well as his buttocks. He was also last admitted for cellulitis in september. His reports that since that time when urinary catheter was removed, despite urinary dilation, he still continues to have urinary incontinence in between straight cathing. This urinary incontinence is causing worsening of sacral wound. She also notes he has been itching his skin. required blood transfusion of 2 packs PRB's. Hb this morning at discharge is 8.9, he continues to take iron daily and he follows with Dr. River for hematology, will have close outpatient follow up with him. White blood cell count normal on the zosyn and Zyvox, so will place on oral levaquin and augmentin from previsous cultures for his UTI and cellulitis. wound nurse consult, and dressing have changed. His will continue outpatient and [facility] wound care. He reports he has all necessary supplies. Also placed coker catheter while wounds were healing. Will remove and he will continue to straight cath 6 times a day. He has close follow up with PCP. He will be discharged home today. Levaquin and Augmentin sent Status at Discharge Functional status at discharge: wheelchair bound Time Spent with Patient Time attestation: Total time spent providing and/or coordinating discharge services: Time spent: greater than 30 minutes Exam Narrative Exam Narrative: General: Patient is alert, and oriented to person, place and time with normal affect, proper hygiene Skin:bilateral wounds have dressing/wraps in place: c/d/i Head: atraumatic, acephalic Eyes: PERRLA, no nystagmus present, conjunctiva clear, no scleral icterus Ears: normal Tympanic Membrane, normal gross auditory acuity Heart: Normal rate and rhythm, no murmurs/rubs/gallops Lungs: no audible wheezes, crackles and normal breath sounds all lung bates Abdomen: Normal audible bowel sounds, no distension, No palpable masses, no organomegaly, no rebound/guarding/ or rigidity Musculoskeletal: muscle atrophy noted, ROM is limited due to being in hospital bed, no swelling bilateral lower extremities Vascular: Normal carotid, radial, femoral, posterior tibial, and dorsalis pedis pulses Lymph: no supraclavicular, axillary, or anterior/posterior cervical adenopathy Neuro: CN II-X grossly intact Constitutional Vital Signs, click to edit/add: Last Vital Signs Temp 97.5 F L 11/27/22 05:30 Pulse 58 L 11/27/22 12:01 Resp 18 11/27/22 07:36 BP 147/70 H 11/27/22 08:55 Pulse Ox 95 11/27/22 11:27 O2 Del Method Room Air 11/27/22 11:27 DS: Data Data Completed and Pending Labs on day of discharge: Labs from last 24 hours 11/27/22 11/27/22 11/27/22 11:10 07:42 04:53 WBC 9.3 RBC 3.58 L Hgb 8.9 L Hct 29.3 L MCV 81.8 MCH 24.9 L MCHC 30.4 RDW 17.1 H Plt Count 174 MPV 10.3 Neut % (Auto) 61.4 Lymph % (Auto) 16.9 L [place] % (Auto) 7.2 Eos % (Auto) 13.2 H Baso % (Auto) 0.4 Neut # (Auto) 5.7 Lymph # (Auto) 1.6 [place] # (Auto) 0.7 Eos # (Auto) 1.2 H Baso # (Auto) 0.0 Abs Immat Gran (auto) 0.08 H Imm/Tot Granulo (auto) 0.9 H Sodium 132 L Potassium 4.1 6.8 H* Chloride 107 Carbon Dioxide 23.0 Anion Gap 8.8 BUN 19.0 H Creatinine 1.20 Est GFR ( Amer) >60 Est GFR (Non-Af Amer) >60 BUN/Creatinine Ratio 15.8 Glucose 103 Calcium 8.0 L Total Bilirubin 0.7 AST 43 H ALT 10 L Alkaline Phosphatase 106 Total Protein 7.5 Albumin 1.2 L Globulin 6.3 Albumin/Globulin Ratio 0.2 POC Glucose 139 H Crossmatch 11/26/22 11/26/22 11/26/22 21:53 16:54 15:07 WBC RBC Hgb 8.9 L Hct 30.1 L MCV MCH MCHC RDW Plt Count MPV Neut % (Auto) Lymph % (Auto) [place] % (Auto) Eos % (Auto) Baso % (Auto) Neut # (Auto) Lymph # (Auto) [place] # (Auto) Eos # (Auto) Baso # (Auto) Abs Immat Gran (auto) Imm/Tot Granulo (auto) Sodium Potassium Chloride Carbon Dioxide Anion Gap BUN Creatinine Est GFR ( Amer) Est GFR (Non-Af Amer) BUN/Creatinine Ratio Glucose Calcium Total Bilirubin AST ALT Alkaline Phosphatase Total Protein Albumin Globulin Albumin/Globulin Ratio POC Glucose 183 H 215 H Crossmatch 11/26/22 06:35 WBC RBC Hgb Hct MCV MCH MCHC RDW Plt Count MPV Neut % (Auto) Lymph % (Auto) [place] % (Auto) Eos % (Auto) Baso % (Auto) Neut # (Auto) Lymph # (Auto) [place] # (Auto) Eos # (Auto) Baso # (Auto) Abs Immat Gran (auto) Imm/Tot Granulo (auto) Sodium Potassium Chloride Carbon Dioxide Anion Gap BUN Creatinine Est GFR ( Amer) Est GFR (Non-Af Amer) BUN/Creatinine Ratio Glucose Calcium Total Bilirubin AST ALT Alkaline Phosphatase Total Protein Albumin Globulin Albumin/Globulin Ratio POC Glucose Crossmatch See Detail Preliminary micro results at discharge 11/25/22 14:12 - Preliminary Blood 11/25/22 14:10 Blood Culture Result 1 - Preliminary Blood 11/25/22 22:32 Urine Culture - Preliminary Urine,Clean Catch Klebsiella pneumoniae Discharge Plan Discharge Disposition: Home, Self-Care Condition: Good Discharge Medications: New amoxicillin-pot clavulanate 875-125 mg tablet 1 tab PO Q12H 7 Days Qty: 14 0RF levofloxacin 500 mg tablet 500 mg PO DAILY 7 Days Qty: 7 0RF Continued ferrous sulfate 325 mg (65 mg iron) tablet 65 mg PO DAILY Rx Instructions: WITH BREAKFAST oxybutynin chloride 15 mg tablet extended release 24hr 15 mg PO DAILY citalopram 40 mg tablet 40 mg PO DAILY atenolol 100 mg tablet 100 mg PO DAILY lisinopril 20 mg tablet 20 mg PO DAILY glipizide 10 mg tablet 10 mg PO DAILY amlodipine 10 mg tablet 10 mg PO DAILY Januvia 100 mg tablet 100 mg PO DAILY Activity: resume usual activities as tolerated Diet: advance to your usual diet Forms: Portal Instructions Follow Up Appointments: Follow up appt. with Dr. River at [facility] on . @ 3pm [phone] Follow up appt. with Dr. Reis on Dec.29 @ 10am *office will call with a sooner appt. if one becomes available Office #: [phone]
[2022-11-27 16:12] LABS: Glucometer 167 mg/dL (74-106)
--- NOTE | 2022-12-01 09:58 | CM.DCFOLLOWU ---
Person spoke with: Patient How are you feeling? Doing well. How is your pain? none Did you understand your discharge instructions? yes Do you have any questions about your discharge instructions? no Were you given any prescriptions at discharge? yes Were you able to get your prescriptions filled? yes Do you understand how to take your medications as ordered? yes Do you have any questions about your follow up appointment and do you plan to keep your follow up appointment? 3 follow up appointments (Hemalology, Cardiology and PCP)-patient plans on keeping all scheduled appointments Is there anything else that you would like to discuss? no Questions/Comments/Concerns/Other: none
== END 2022-11-27 18:05 | disposition home or self-care (01) | DRG 571 ==
LOC: ER 13:08 → MS 13:24
PROVIDERS: Internal Medicine; Admitting Provider Family Medicine; Emergency Provider Emergency Medicine; PCP Family Medicine; Visit Provider Family Medicine
DX: L03.317 Cellulitis of buttock (principal); G82.20 Paraplegia, unspecified; L97.811 Non-pressure chronic ulcer of other part of right lower leg limited to breakdown of skin; L03.116 Cellulitis of left lower limb; I83.224 Varicose veins of left lower extremity with both ulcer of heel and midfoot and inflammation; E13.621 Other specified diabetes mellitus with foot ulcer; N31.9 Neuromuscular dysfunction of bladder, unspecified; D50.9 Iron deficiency anemia, unspecified; I10 Essential (primary) hypertension; L29.9 Pruritus, unspecified; I83.018 Varicose veins of right lower extremity with ulcer other part of lower leg; L97.522 Non-pressure chronic ulcer of other part of left foot with fat layer exposed; Z99.3 Dependence on wheelchair; Z79.84 Long term (current) use of oral hypoglycemic drugs; Z79.899 Other long term (current) drug therapy; Z88.1 Allergy status to other antibiotic agents; Z82.49 Family history of ischemic heart disease and other diseases of the circulatory system
CPT/HCPCS: 36415; 36430; 51702; 73610; 73630; 80053; 81001; 82948; 83036; 83605; 84132; 84484; 85014; 85018; 85025; 85610; 85652; 86140; 86850; 86900; 86901; 86920; 87040; 87086; 87150; 87186; 93005; 94761; 96365; 96366; 96367; 96368; 96372; 99285; J2020; P9016

== ENCOUNTER 2022-12-15 15:12 | Outpatient (OUT) | payer BC, MEDICARE, SELFPAY ==
[2022-12-15 15:45] LABS: Basophils Percent Auto 0.3 % (0.2-2.0); Eosinophils Absolute Auto 1.3 10^3/uL (0.0-0.7); Eosinophils Percent Auto 11.5 % (0.9-7.0); Hematocrit 32.9 % (42.0-54.0); Hemoglobin 10.2 g/dL (14.0-18.0); Immature Granulocytes Abs Auto 0.03 10^3/uL (0.00-0.03); Immature Granulocytes Pct Auto 0.3 % (0.0-0.5); Lymphocytes Percent Auto 17.5 % (20.5-60.0); Mean Corpuscular Hemoglobin 25.8 pg (25.9-34.0); Mean Corpuscular Volume 83.1 fL (80.0-94.0); Mean Platelet Volume 9.1 fL (9.5-13.5); Monocytes Absolute Auto 0.8 10^3/uL (0.3-0.8); Monocytes Percent Auto 7.1 % (1.7-12.0); Neutrophils Absolute Auto 7.3 10^3/uL (1.4-6.5); Neutrophils Percent Auto 63.3 % (43.0-75.0); Platelet Count 283 10^3/uL (150-450); Red Blood Count 3.96 10^6/uL (4.70-6.10); White Blood Count 11.5 10^3/uL (4.0-11.0)
[2022-12-15 15:59] LABS: Anion Gap 12.2; BUN Creatinine Ratio 21.2; C Reactive Protein 9.1 mg/dL (<=1.0); Calcium 8.6 mg/dL (8.5-10.1); Carbon Dioxide 25.9 mmol/L (21.0-32.0); Chloride 101 mmol/L (98-107); Estimated GFR (African America 60 (>=60); Estimated GFR (Non-African Ame 49 (>=60); Glucose 341 mg/dL (74-106); Potassium 4.1 mmol/L (3.5-5.1); Sodium 135 mmol/L (136-145)
[2022-12-15 16:07] LABS: Erythrocyte Sedimentation Rate 128 mm/hr (<=20)
== END 2022-12-15 15:13 | disposition home or self-care (01) ==
LOC: LAB 15:14
PROVIDERS: PCP Family Medicine; Visit Provider Internal Medicine Hematology & Oncology
DX: D72.829 Elevated white blood cell count, unspecified (principal); D64.9 Anemia, unspecified
CPT/HCPCS: 36415; 80048; 85025; 85652; 86140

== ENCOUNTER 2023-01-06 11:12 | Outpatient (OUT) | payer BC, MEDICARE, SELFPAY | END 2023-01-06 11:13 | disposition home or self-care (01) | LOC: PST 11:12 | PROVIDERS: PCP Family Medicine; Visit Provider Urology | DX: Z01.818 Encounter for other preprocedural examination (principal); N35.919 Unspecified urethral stricture, male, unspecified site; N31.9 Neuromuscular dysfunction of bladder, unspecified; I10 Essential (primary) hypertension; E11.9 Type 2 diabetes mellitus without complications; D64.9 Anemia, unspecified; G47.30 Sleep apnea, unspecified; G82.20 Paraplegia, unspecified ==

== ENCOUNTER 2023-01-08 13:18 | Outpatient (OUT) | payer BC, MEDICARE, SELFPAY ==
[2023-01-08 13:38] LABS: Basophils Percent Auto 0.2 % (0.2-2.0); Eosinophils Absolute Auto 0.5 10^3/uL (0.0-0.7); Eosinophils Percent Auto 3.7 % (0.9-7.0); Hematocrit 27.5 % (42.0-54.0); Hemoglobin 8.4 g/dL (14.0-18.0); Immature Granulocytes Abs Auto 0.08 10^3/uL (0.00-0.03); Immature Granulocytes Pct Auto 0.6 % (0.0-0.5); Lymphocytes Absolute Auto 1.7 10^3/uL (1.2-3.8); Mean Corpuscular HGB Conc 30.5 g/dL (29.9-35.2); Mean Corpuscular Hemoglobin 25.3 pg (25.9-34.0); Mean Corpuscular Volume 82.8 fL (80.0-94.0); Mean Platelet Volume 8.4 fL (9.5-13.5); Monocytes Absolute Auto 0.9 10^3/uL (0.3-0.8); Monocytes Percent Auto 6.4 % (1.7-12.0); Neutrophils Absolute Auto 11.1 10^3/uL (1.4-6.5); Neutrophils Percent Auto 77.1 % (43.0-75.0); Platelet Count 326 10^3/uL (150-450); Red Blood Count 3.32 10^6/uL (4.70-6.10); Red Cell Distribution Width 15.4 % (11.0-15.0); White Blood Count 14.3 10^3/uL (4.0-11.0)
[2023-01-08 13:41] LABS: Erythrocyte Sedimentation Rate 83 mm/hr (<=20)
[2023-01-08 14:33] LABS: Anion Gap 10.4; BUN Creatinine Ratio 16.5; C Reactive Protein 19.9 mg/dL (<=1.0); Calcium 8.4 mg/dL (8.5-10.1); Carbon Dioxide 27.2 mmol/L (21.0-32.0); Chloride 104 mmol/L (98-107); Estimated GFR (African America 52 (>=60); Estimated GFR (Non-African Ame 43 (>=60); Glucose 164 mg/dL (74-106); Potassium 4.6 mmol/L (3.5-5.1); Sodium 137 mmol/L (136-145)
== END 2023-01-08 13:19 | disposition home or self-care (01) ==
PROVIDERS: PCP Family Medicine; Visit Provider Internal Medicine Hematology & Oncology
DX: D64.9 Anemia, unspecified (principal); D72.829 Elevated white blood cell count, unspecified
CPT/HCPCS: 36415; 80048; 85025; 85652; 86140

== ENCOUNTER 2023-01-11 07:32 | Day surgery (SDC) | payer BC, MEDICARE, SELFPAY ==
[2023-01-11] MEDS: LIDOCAINE 2% JELLY 10 ML UR (08:39)
--- NOTE | 2023-01-11 08:53 | PM.URSON ---
Urology Surgery Operative Note Operative Note Procedure Date: 01/11/23 Time Out Performed: yes Pre-op Diagnosis: Recurrent urethral stricture Post-op Diagnosis: same as pre-op Procedures performed: 1. Cystoscopy. 2. Urethral dilation with Duarte sounds from 26-30 [place]. #3. Placement of 20 [place] Rowe catheter in the bladder Anesthesia: local Primary Surgeon: Jovanny Hoffman Complications: None Estimated blood loss (mL): 10 Findings: Mild recurrence of penile and bulbar urethral strictures Specimens: None Drains: 20 [place] Rowe catheter in the bladder Indications for Procedures: This gentleman has a history of recurrent urethral strictures for which he has undergone urethral dilation with cystoscopy in the past. His most recent dilation was October 08, 2022. He now presents for repeat cystoscopy and urethral dilation. He has signed an informed consent for these procedures after all risks were explained. Detailed description of Procedure: The patient was kept on the rbarneveld bed and brought to the endoscopy suite. He was in the supine position. Timeout was done by all parties in the room. We all agreed upon the patient's identification and the planned procedures for this patient. 2% Xylocaine jelly was passed per urethra after the genitalia were sterilely prepped and draped in the usual fashion. I started by passing a flexible cystoscope per urethra and into the bladder. 1 could see that his penile urethral strictures had recurred but they were not dramatic. The bulbar urethral stricture similarly had recurred but was not dramatic. The scope was then passed into the bladder. There were no tumors in the bladder. A Glidewire was passed through the scope into the bladder and the scope was removed. I started at 26 [place] with Duarte sounds and dilated his urethra sequentially up to 30 [place]. There was some bleeding from the urethra. The wire was removed. A 20 [place] two-way Rowe catheter was placed in the bladder. 10 cc of fluid was placed in the balloon. Clear urine drained from the catheter. He was then discharged to home. He will get his catheter out in a few days. We will repeat the cystoscopy as directed in about a half a year.
[2023-01-11 08:55] VITALS: BP 136/65; BP 144/69; PULSE 66; PULSE 67; RESP 18; O2SAT 96; O2SAT 97
== END 2023-01-11 09:13 | disposition home or self-care (01) ==
PROVIDERS: PCP Family Medicine; Visit Provider Urology
PROC: (CPT 52281; principal; 2023-01-11 08:00)
DX: N35.912 Unspecified bulbous urethral stricture, male (principal); N31.9 Neuromuscular dysfunction of bladder, unspecified; I10 Essential (primary) hypertension; E11.9 Type 2 diabetes mellitus without complications; D64.9 Anemia, unspecified; G47.30 Sleep apnea, unspecified; G82.20 Paraplegia, unspecified; R33.9 Retention of urine, unspecified; E78.5 Hyperlipidemia, unspecified; Z79.84 Long term (current) use of oral hypoglycemic drugs; Z79.899 Other long term (current) drug therapy
CPT/HCPCS: 52281

== ENCOUNTER 2023-01-12 07:38 | Outpatient (RCR) | payer BC, MEDICARE, SELFPAY ==
[2023-01-12 15:33] LABS: Percent Iron Saturation 13.9 %
== END 2023-01-26 23:59 | disposition home or self-care (01) ==
LOC: INF 07:38
PROVIDERS: PCP Family Medicine; Visit Provider Internal Medicine Hematology & Oncology
DX: D72.829 Elevated white blood cell count, unspecified (principal); D64.9 Anemia, unspecified; E11.9 Type 2 diabetes mellitus without complications; I10 Essential (primary) hypertension; G47.30 Sleep apnea, unspecified; Z79.84 Long term (current) use of oral hypoglycemic drugs
CPT/HCPCS: 36415; 82728; 83540; 83550; G0463

== ENCOUNTER 2023-02-06 13:43 | Emergency (ER) | payer BC, MEDICARE, SELFPAY ==
[2023-02-06 13:50] VITALS: BP 161/71; PULSE 59; RESP 18; TEMP 36.5; O2SAT 100; BMI 33.8
--- NOTE | 2023-02-06 14:23 | XR_ITS ---
The [address] [address] Patient Name: JOEL STINSON MRN: [id number] date: 1960 Sex: M Assigned Patient Location: ER Current Patient Location: ER Accession/Order Number: [id number] Exam Date: 02/06/2023 15:05 Report Date: 02/06/2023 15:47 At the request of: MALINI LINARES Procedure: XR foot LT min 3V IMAGES REVIEWED: XR foot LT min 3V COMPARISON: None available. CLINICAL INDICATION: foot ceullitis diabetic ulcers FINDINGS/IMPRESSION: Prominent lateral forefoot soft tissue ulcer adjacent to the fifth MTP joint with septic arthritis of the fifth MTP joint and bony destructive change of the distal fifth metatarsal and the base of the fifth proximal phalanx consistent with osteomyelitis. Moderate lateral ankle soft tissue ulcer and soft tissue swelling without radiographic evidence of osteomyelitis of the lateral malleolus. Posterior heel soft tissue ulcer without radiographic evidence of osteomyelitis of the posterior calcaneus. Severe dorsal foot soft tissue swelling. Peripheral arterial disease. Osteopenia. Degenerative change of the calcaneocuboid joint. Electronically authenticated by: KENNY VARELA Date: 02/06/2023 15:47
[2023-02-06 14:48] LABS: Basophils Percent Auto 0.2 % (0.2-2.0); Eosinophils Absolute Auto 0.6 10^3/uL (0.0-0.7); Eosinophils Percent Auto 4.2 % (0.9-7.0); Hematocrit 27.1 % (42.0-54.0); Hemoglobin 8.4 g/dL (14.0-18.0); Immature Granulocytes Abs Auto 0.08 10^3/uL (0.00-0.03); Immature Granulocytes Pct Auto 0.5 % (0.0-0.5); Lymphocytes Absolute Auto 1.5 10^3/uL (1.2-3.8); Lymphocytes Percent Auto 10.3 % (20.5-60.0); Mean Corpuscular Hemoglobin 25.8 pg (25.9-34.0); Mean Corpuscular Volume 83.4 fL (80.0-94.0); Mean Platelet Volume 8.9 fL (9.5-13.5); Monocytes Absolute Auto 1.3 10^3/uL (0.3-0.8); Monocytes Percent Auto 8.5 % (1.7-12.0); Neutrophils Absolute Auto 11.4 10^3/uL (1.4-6.5); Neutrophils Percent Auto 76.3 % (43.0-75.0); Platelet Count 309 10^3/uL (150-450); Red Blood Count 3.25 10^6/uL (4.70-6.10); Red Cell Distribution Width 14.4 % (11.0-15.0); White Blood Count 14.9 10^3/uL (4.0-11.0)
[2023-02-06] MEDS: 0.9 % SODIUM CHLORIDE 1,000 ML 999 ML IV (14:53)
[2023-02-06 15:06] LABS: Acetone NEGATIVE (NEGATIVE)
[2023-02-06 15:09] LABS: C Reactive Protein 49.2 mg/dL (<=1.0); Erythrocyte Sedimentation Rate 71 mm/hr (<=20)
[2023-02-06 15:12] LABS: Alanine Aminotransferase 11 U/L (16-63); Albumin Globulin Ratio 0.2; Albumin Level 1.7 g/dL (3.4-5.0); Alkaline Phosphatase 145 U/L (46-116); Anion Gap 13.7; Aspartate Amino Transferase 10 U/L (15-37); BUN Creatinine Ratio 18.2; Bilirubin Total 0.2 mg/dL (0.2-1.0); Calcium 8.8 mg/dL (8.5-10.1); Carbon Dioxide 22.6 mmol/L (21.0-32.0); Chloride 100 mmol/L (98-107); Estimated GFR (African America 50 (>=60); Estimated GFR (Non-African Ame 41 (>=60); Globulin 7.5 g/dL; Glucose 156 mg/dL (74-106); Potassium 4.3 mmol/L (3.5-5.1); Sodium 132 mmol/L (136-145); Total Protein 9.2 g/dL (6.4-8.2)
[2023-02-06 15:15] LABS: Lactate/Lactic Acid 1.2 mmol/L (0.4-2.0)
[2023-02-06] MEDS: PIPERACILLIN SODIUM/TAZOBACTAM 4.5 GM in 0.9 % SODIUM CHLORIDE 50 ML IV (15:16)
--- NOTE | 2023-02-06 15:42 | ED_ITS ---
HPI - General Adult General Stated complaint: wound check left leg Time Seen by Provider: 02/06/23 13:52 Source: patient Mode of arrival: Wheelchair Limitations: no limitations History of Present Illness HPI narrative: Diabetic patient with long history of recurrent LE cellulitis, diabetic ulcers and poorly healing sacral decubitus and buttock wounds presents with redness and worsened swelling to the left foot along with increase in size of ulcers along the medial heel of the left foot and the sole of the left foot near the 5th MTP. he also has an ulcer to the lateral left ankle and has oozing from another area on the dorsum of the left foot. He has chills but denied fever or systemic complaints such as vomiting. The helps care for the patient's sacral and buttocks ulcers and told me those are actually looking good . The patient sees Dr Brar at [facility]. Related Data Home Medications Medication Instructions Recorded Confirmed amlodipine 10 mg tablet 10 mg PO DAILY 10/06/22 01/06/23 atenolol 100 mg tablet 100 mg PO DAILY 10/06/22 01/06/23 citalopram 40 mg tablet 40 mg PO DAILY 10/06/22 01/06/23 glipizide 10 mg tablet 10 mg PO DAILY 10/06/22 01/06/23 lisinopril 20 mg tablet 20 mg PO DAILY 10/06/22 01/06/23 oxybutynin chloride 15 mg 15 mg PO DAILY 10/06/22 01/06/23 tablet,extended release 24 hr sitagliptin phosphate 100 mg 100 mg PO DAILY 10/06/22 01/06/23 tablet (Januvia) ferrous sulfate 325 mg (65 mg 65 mg PO DAILY 11/25/22 01/06/23 iron) tablet Allergies Allergy/AdvReac Type Severity Reaction Status Date / Time vancomycin Allergy Verified 10/06/22 19:37 [facility] Medical History (Updated 02/06/23 @ 15:56 by Malini Linares) Anemia ?D64.9 - Anemia, unspecified (ICD-10) Cauda equina spinal cord injury ?S34.3XXA - Injury of cauda equina, initial encounter (ICD-10) Cellulitis ?L03.90 - Cellulitis, unspecified (ICD-10) Diabetes 1.5, managed as type 2 ?E13.9 - Other specified diabetes mellitus without complications (ICD-10) Disc degeneration, lumbosacral ?M51.37 - Other intervertebral disc degeneration, lumbosacral region (ICD-10) HTN (hypertension) ?I10 - Essential (primary) hypertension (ICD-10) Iron deficiency anemia ?D50.9 - Iron deficiency anemia, unspecified (ICD-10) Neurogenic bladder ?N31.9 - Neuromuscular dysfunction of bladder, unspecified (ICD-10) Paraplegic spinal paralysis ?G82.20 - Paraplegia, unspecified (ICD-10) Sacral decubitus ulcer ?L89.159 - Pressure ulcer of sacral region, unspecified stage (ICD-10) Surgical History (Updated 01/06/23 @ 10:06 by Kirti Owen) Miya filter in place ?Z95.828 - Presence of other vascular implants and grafts (ICD-10) History of appendectomy ?Z90.49 - Acquired absence of other specified parts of digestive tract (ICD- 10) History of back surgery ?Z98.890 - Other specified postprocedural states (ICD-10) History of cystoscopy ?Z98.890 - Other specified postprocedural states (ICD-10) History of urethrotomy ?Z98.890 - Other specified postprocedural states (ICD-10) Family History (Updated 11/25/22 @ 14:36 by Kylie Crockett) Mother Family history of hypertension Social History (Updated 01/11/23 @ 07:48 by Kirti Bertrand) Within the past year, how often did you have a drink containing alcohol: never Within the past year, how often did you have six or more drinks on one occasion: never Score interpretation: A score less than 4 is consistent with normal alcohol consumption. Smoking status: Never smoker Non-prescribed substance use: denies use Previous occupational history: retired Highest level of school completed/degree received: high school graduate Are you now , , , , never or living with a partner: In a typical week, how many times do you talk on the telephone with family, friends, or neighbors: 3 or more times per week How often do you get together with friends or relatives: twice per week How often do you attend yazdanism or latter-day services: never Do you belong to any clubs or organizations such as yazdanism groups unions, [email or web address] or athletic groups, or school groups: no Total score: 2 Score interpretation: A score of greater than or equal to 2 indicates the low est level of social isolation. Little interest or pleasure in doing things: not at all Feeling down, depressed, or hopeless: not at all Feel stressed/tense/nervous/anxious/difficulty sleeping: not at all Do you think of yourself as: straight/heterosexual Gender Identity: male Exam Narrative Exam Narrative: Nurses notes and vital signs reviewed and patient is not hypoxic. afebrile General: Well-appearing and in no apparent distress. Skin: Warm, dry, no pallor noted. Left LE erythema that extends from the proximal lower leg through to the distal left foot. Head: Normocephalic, atraumatic. Eye: Pupils are equal, round and EOMI. No scleral icterus. Ears, Nose, Mouth, and Throat: Oral mucosa is moist Cardiovascular: Regular Rate and Rhythm without murmur, gallop or rub. Respiratory: No accessory muscle use or respiratory distress. Lungs are clear to auscultation, no wheezing, rales or rhonchi Back: Deep sacral decubitus wound without erythema or purulence. Both buttocks have a large deep decubitus ulcer - the tissue is pink or red and without erythema or purulent drainage. Musculoskeletal: LEFT LE = erythema extending from the proximal lower leg to the distal foot with swelling throughout the left lower leg. 5mm ulcer to the lateral left ankle that has some purulent drainage. Left foot has two large ulcers - one at the 5th MTP on the plantar surface and the other at the medial left heel. Both are over 2cm in diameter. No purulent drainage is noted from either foot ulcer but the wounds are foul-smelling. GI: Abdomen is soft, non-distended. Normal bowel sounds. No tenderness to palpation. No rebound, guarding, or rigidity noted. Neurological: A&O x4. No cranial nerve dysfunction observed. No truncal ataxia. Moves all extremities. Sensation intact. Psychiatric: Cooperative and interactive. Normal mood and affect. Constitutional Vital Signs, click to edit/add: Last Vital Signs Temp 99.5 F 02/06/23 16:30 Pulse 71 02/06/23 16:30 Resp 14 02/06/23 16:30 BP 173/80 H 02/06/23 16:30 Pulse Ox 96 02/06/23 16:30 O2 Del Method Room Air 02/06/23 16:30 Course Vital Signs Vital signs: Vital Signs Temperature 97.7 F 02/06/23 13:50 Pulse Rate 59 L 02/06/23 13:50 Respiratory Rate 18 02/06/23 13:50 Blood Pressure 161/71 H 02/06/23 13:50 Pulse Oximetry 100 02/06/23 13:50 Oxygen Delivery Method Room Air 02/06/23 13:50 Temperature 99.5 F 02/06/23 16:30 Pulse Rate 71 02/06/23 16:30 Respiratory Rate 14 02/06/23 16:30 Blood Pressure 173/80 H 02/06/23 16:30 Pulse Oximetry 96 02/06/23 16:30 Oxygen Delivery Method Room Air 02/06/23 16:30 Medical Decision Making MDM Narrative Medical decision making narrative: peripheral IV established and blood drawn and sent for testing. The patient also had wound cultures obtained - one from the lateral left ankle ulcer and the other from the foot. Patient is ALLERGIC to vancomycin. He was ordered to receive IV Zosyn. X-rays were also obtained of the left foot which included the left ankle. He has acute osteomyelitis of the left foot at the 5th MTP. The ankle and heel do not have osteomyelitis at the location of the skin lesions/diabetic ulcers. WBC 14k, BUN and Cr are at baseline. He sees Dr Brar for his decubitus ulcers and wound care - he asked to go to [facility] for admission. Podiatry paged. I spoke with Dr Napier - hospitalist at [facility] - about the patient's case and he agreed to admit the patient to the hospitalist service at [facility]. Patient and informed of the plan and acceptance to [facility]. We will arrange tranport to [facility] once we get bed assignment. . Lab Data Lab results reviewed: Yes I reviewed the patient's lab results Labs: Lab Results 02/06/23 Range/Units 14:20 WBC 14.9 H (4.0-11.0) 10^3/uL RBC 3.25 L (4.70-6.10) 10^6/uL Hgb 8.4 L (14.0-18.0) g/dL Hct 27.1 L (42.0-54.0) % MCV 83.4 (80.0-94.0) fL MCH 25.8 L (25.9-34.0) pg MCHC 31.0 (29.9-35.2) g/dL RDW 14.4 (11.0-15.0) % Plt Count 309 (150-450) 10^3/uL MPV 8.9 L (9.5-13.5) fL Neut % (Auto) 76.3 H (43.0-75.0) % Lymph % (Auto) 10.3 L (20.5-60.0) % [place] % (Auto) 8.5 (1.7-12.0) % Eos % (Auto) 4.2 (0.9-7.0) % Baso % (Auto) 0.2 (0.2-2.0) % Neut # (Auto) 11.4 H (1.4-6.5) 10^3/uL Lymph # (Auto) 1.5 (1.2-3.8) 10^3/uL [place] # (Auto) 1.3 H (0.3-0.8) 10^3/uL Eos # (Auto) 0.6 (0.0-0.7) 10^3/uL Baso # (Auto) 0.0 (0.0-0.1) 10^3/uL Abs Immat Gran (auto) 0.08 H (0.00-0.03) 10^3/uL Imm/Tot Granulo (auto) 0.5 (0.0-0.5) % ESR 71 H (<=20) mm/hr Sodium 132 L (136-145) mmol/L Potassium 4.3 (3.5-5.1) mmol/L Chloride 100 (98-107) mmol/L Carbon Dioxide 22.6 (21.0-32.0) mmol/L Anion Gap 13.7 BUN 31.0 H (7.0-18.0) mg/dL Creatinine 1.70 H (0.70-1.30) mg/dL Est GFR ( Amer) 50 L (>=60) Est GFR (Non-Af Amer) 41 L (>=60) BUN/Creatinine Ratio 18.2 Glucose 156 H (74-106) mg/dL Lactate 1.2 (0.4-2.0) mmol/L Calcium 8.8 (8.5-10.1) mg/dL Total Bilirubin 0.2 (0.2-1.0) mg/dL AST 10 L (15-37) U/L ALT 11 L (16-63) U/L Alkaline Phosphatase 145 H (46-116) U/L C-Reactive Protein 49.2 H (<=1.0) mg/dL Total Protein 9.2 H (6.4-8.2) g/dL Albumin 1.7 L (3.4-5.0) g/dL Globulin 7.5 g/dL Albumin/Globulin Ratio 0.2 Acetone, Qual Negative (NEGATIVE) Imaging Data xr foot: Radiologist's impression: Patient Name: JOEL STINSON MRN: [facility]:[id number] date: 1960 Sex: M Assigned Patient Location: ER Current Patient Location: ER Accession/Order Number: [id number] Exam Date: 02/06/2023 15:05 Report Date: 02/06/2023 15:47 At the request of: MALINI LINARES Procedure: XR foot LT min 3V IMAGES REVIEWED: XR foot LT min 3V COMPARISON: None available. CLINICAL INDICATION: foot ceullitis diabetic ulcers FINDINGS/IMPRESSION: Prominent lateral forefoot soft tissue ulcer adjacent to the fifth MTP joint with septic arthritis of the fifth MTP joint and bony destructive change of the distal fifth metatarsal and the base of the fifth proximal phalanx consistent with osteomyelitis. Moderate lateral ankle soft tissue ulcer and soft tissue swelling without radiographic evidence of osteomyelitis of the lateral malleolus. Posterior heel soft tissue ulcer without radiographic evidence of osteomyelitis of the posterior calcaneus. Severe dorsal foot soft tissue swelling. Peripheral arterial disease. Osteopenia. Degenerative change of the calcaneocuboid joint. Electronically authenticated by: KENNY VARELA Date: 02/06/2023 15:47 Discharge Plan Discharge Clinical Impression: Acute osteomyelitis of left foot, Cellulitis of left lower leg, Decubitus ulcer of sacral area, Decubitus ulcer, buttock Patient Disposition: [facility] Time of Disposition Decision: 15:04 Discharge Location: [facility]
--- NOTE | 2023-02-06 15:57 | PC.NURSE ---
Pt presents with worsening chronic wounds to left foot. Per pts , left foot is more swollen and has increased drainage with foul odor. 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 He has deep wounds to his sacrum and buttocks as well though they are clean and do not smell. His right foot also have wounds with eschar. Pts left calf is swollen and edematous and warm to touch . Per pt and , pt was supposed to have wound debridement done by Dr Boss to both the foot and buttocks, however, said has been off sick so they made an appt back at [facility] but it is not until February.
[2023-02-06 16:30] VITALS: BP 173/80; PULSE 71; RESP 14; TEMP 37.5; O2SAT 96
[2023-02-06 18:48] VITALS: BP 155/78; PULSE 72; RESP 14; O2SAT 98
--- NOTE | 2023-02-06 18:49 | PC.NURSE ---
left leg /foot redressed with wet to dry , abd pad and kerlix wrap.
[2023-02-06 20:00] VITALS: BP 160/81; PULSE 72; RESP 14; O2SAT 98
[2023-02-06 20:25] VITALS: BP 160/79; PULSE 72; RESP 14; O2SAT 97
== END 2023-02-06 20:27 | disposition short-term general hospital (02) ==
PROVIDERS: Emergency Provider Emergency Medicine; PCP Family Medicine
DX: E11.69 Type 2 diabetes mellitus with other specified complication (principal); M86.172 Other acute osteomyelitis, left ankle and foot; E11.621 Type 2 diabetes mellitus with foot ulcer; L97.429 Non-pressure chronic ulcer of left heel and midfoot with unspecified severity; E11.622 Type 2 diabetes mellitus with other skin ulcer; L97.329 Non-pressure chronic ulcer of left ankle with unspecified severity; L03.116 Cellulitis of left lower limb; L89.329 Pressure ulcer of left buttock, unspecified stage; L89.319 Pressure ulcer of right buttock, unspecified stage; L89.159 Pressure ulcer of sacral region, unspecified stage; Z79.899 Other long term (current) drug therapy; I10 Essential (primary) hypertension; G82.20 Paraplegia, unspecified; Z95.828 Presence of other vascular implants and grafts; Z90.49 Acquired absence of other specified parts of digestive tract; Z98.890 Other specified postprocedural states
CPT/HCPCS: 36415; 73630; 80053; 82009; 83605; 85025; 85652; 86140; 87040; 87070; 87150; 87186; 96365; 99285

== ENCOUNTER 2023-02-15 16:00 | Outpatient (OUT) | payer BC, MEDICARE, SELFPAY ==
[2023-02-15 16:41] LABS: Anion Gap 11.7; Calcium 9.1 mg/dL (8.5-10.1); Carbon Dioxide 25.7 mmol/L (21.0-32.0); Chloride 103 mmol/L (98-107); Estimated GFR (African America 47 (>=60); Estimated GFR (Non-African Ame 39 (>=60); Glucose 72 mg/dL (74-106); Potassium 4.4 mmol/L (3.5-5.1); Sodium 136 mmol/L (136-145)
== END 2023-02-15 16:01 | disposition home or self-care (01) ==
LOC: LAB 16:02
PROVIDERS: PCP Family Medicine
DX: N18.30 Chronic kidney disease, stage 3 unspecified (principal); D72.829 Elevated white blood cell count, unspecified; D64.9 Anemia, unspecified
CPT/HCPCS: 36415; 80048

== ENCOUNTER 2023-03-30 07:28 | Outpatient (RCR) | payer BC, MEDICARE, SELFPAY ==
[2023-03-30 15:27] LABS: Basophils Absolute Auto 0.1 10^3/uL (0.0-0.1); Basophils Percent Auto 0.4 % (0.2-2.0); Eosinophils Absolute Auto 0.9 10^3/uL (0.0-0.7); Eosinophils Percent Auto 6.6 % (0.9-7.0); Hemoglobin 9.1 g/dL (14.0-18.0); Immature Granulocytes Abs Auto 0.09 10^3/uL (0.00-0.03); Immature Granulocytes Pct Auto 0.6 % (0.0-0.5); Lymphocytes Absolute Auto 2.1 10^3/uL (1.2-3.8); Lymphocytes Percent Auto 15.2 % (20.5-60.0); Mean Corpuscular HGB Conc 30.3 g/dL (29.9-35.2); Mean Corpuscular Hemoglobin 25.6 pg (25.9-34.0); Mean Corpuscular Volume 84.5 fL (80.0-94.0); Mean Platelet Volume 8.6 fL (9.5-13.5); Monocytes Absolute Auto 0.8 10^3/uL (0.3-0.8); Neutrophils Percent Auto 71.2 % (43.0-75.0); Platelet Count 367 10^3/uL (150-450); Red Blood Count 3.55 10^6/uL (4.70-6.10); Red Cell Distribution Width 14.6 % (11.0-15.0)
[2023-03-30 15:40] LABS: Erythrocyte Sedimentation Rate 129 mm/hr (<=20)
[2023-03-30 16:48] LABS: Anion Gap 12.8; BUN Creatinine Ratio 22.2; Calcium 9.4 mg/dL (8.5-10.1); Carbon Dioxide 25.6 mmol/L (21.0-32.0); Chloride 105 mmol/L (98-107); Estimated GFR (African America 50 (>=60); Estimated GFR (Non-African Ame 41 (>=60); Glucose 159 mg/dL (74-106); Potassium 4.4 mmol/L (3.5-5.1); Sodium 139 mmol/L (136-145)
[2023-03-30 18:55] LABS: Percent Iron Saturation 17.6 %
[2023-03-31 15:11] LABS: Albumin 2.4 g/dL (2.9-4.4); Alpha-1-Globulin 0.4 g/dL (0.0-0.4); Alpha-2-Globulin 1.2 g/dL (0.4-1.0); Free Kappa Lt Chains,S 192.3 mg/L (3.3-19.4); Gamma Globulin 2.7 g/dL (0.4-1.8); Immunoglobulin A, Qn, Serum 728 mg/dL (61-437); Immunoglobulin G, Qn, Serum 2817 mg/dL (603-1613); Immunoglobulin M, Qn, Serum 68 mg/dL (20-172); Kappa/Lambda Ratio,S 1.34 (0.26-1.65); Protein, Total 7.9 g/dL (6.0-8.5)
== END 2023-03-30 16:00 | disposition home or self-care (01) ==
LOC: INF 07:28
PROVIDERS: PCP Family Medicine; Visit Provider Internal Medicine Hematology & Oncology
DX: D72.829 Elevated white blood cell count, unspecified (principal); D64.9 Anemia, unspecified; D50.9 Iron deficiency anemia, unspecified
CPT/HCPCS: 36415; 80048; 82728; 82784; 83521; 83540; 83550; 84155; 84165; 85025; 85652; 86140; 86334; G0463

== ENCOUNTER 2023-05-18 10:07 | Outpatient (OUT) | payer BC, MEDICARE, SELFPAY ==
--- OUTSIDE RECORDS SUMMARY | 2023-05-18 10:21 | XMS_ITS | CCD ---
Author Name Unknown Address [address] [place] [address] Organization [facility] Care Team Providers [employer] Professor Name Role Phone MICHAELA ONTIVEROS Unavailable Unavailable NADERER, FIDEL LIEBERMAN Unavailable Unavailabl e AOUAD, THIAGO Gaona Unavailable Unavailable BLOOD, GANGA Gutiérrez Unavailable Unavailable BRAMBILA, JAI Chowdhury Unavailable Unavailable SCHNICATHYCADD TECHNICIAN, WILLIAM Unavailable Unavaila ble SHASHA, KHADAR Murphy Unavailable Unavailable NADERER, DR FIDEL Tellez Admitting Unavailable NADERER, DR FIDEL Tellez Attending Unavailable NADERER, DR FIDEL Tellez Primary Care Unavailable NADERER, DR FIDEL Tellez Consulting Unavailable BRAR, DR CATHY Edwards Admitting Unavailable BRAR, DR CATHY Edwards Attending Unavailable NADERER, DR FIDEL Tellez Primary Care Unavailable PAPPASJESUSITA Consulting Unavailable BRAR, DR CATHY Edwards Consulting Unavailable BRAR, DR CATHY Edwards Admitting Unavailable BRAR, DR CATHY Edwards Attending Unavailable NADERER, DR FIDEL Tellez Primary Care Unavailable WEST, DR KHADAR Edwards Consulting Unavailable BRAR, DR CATHY Edwards Consulting Unavailable MD Fidel Abbott Primary Care Provider MD Cathy Brar Attending Provider Fidel Abbott MD Primary Care Provider MD Fidel Abbott Primary Care Provider MD Cathy Brar Attending Provider [phone] Fidel Abbott MD Primary Care Provider SHELLY MONDRAGON Referring Unavail able NADFIDEL SIN Primary Care Unavailabl e ASHLEE ERWIN Referring Unavailable NADERERFIDEL Primary Care Unavailabl e PARSJALEN, ASHLEE Merritt Referring Unavailable NADERER, FIDEL LUSIANA Primary Care Unavailabl e ZACISTEVEN, ANGELES Referring Unavailable NADERER, FIDEL LUISANA Primary Care Unavailabl e ZACIEWSKI, ANGELES Attending Unavailable ZACIEWSIGNACIO, ANGELES Admitting Unavailable NADERER, FIDEL LUISANA Primary Care Unavailabl e IACOB, MATIAS Admitting Unavailable IACOB, MATIAS Attending Unavailable MARY LEAHY Consulting Unavailable NADERER, FIDEL WYNCOTE Primary Care Unavailabl e ZACIEWSKI, ANGELES Consulting Unavailable BREMYERYAKOV Consulting Unavailable CIARAROSIE Consulting Unavailable AHMAD, MICHELLE Garcia Consulting Unavailable MILLY, KATERINA Grijalva Consulting Unavailable NADERER, FIDEL LUISANA Primary Care Unavailabl e ZACIEWSKI, ANGELES Referring Unavailable NADERER, FIDEL WYNCOTE Primary Care Unavailabl e PARSELL, ASHLEE Merritt Referring Unavailable NADERER, FIDEL Primary Care Physician Parvin VILLA Attending Unavailable ALLEN, Parvin Christie Attending Unavailable ALLEN, Parvin Christie Attending Unavailable Parvin VILLA Referring Unavailable Parvin VILLA Attending Unavailable Cathy Brar Admitting Unavailable Naderer, Fidel Primary Care Unavailable BrarCathy lopez Attending Unavailable BrarCathy Admitting Unavailable Naderer, Fidel Primary Care Unavailable BrarCathy lopez Attending Unavailable Naderer, Fidel Primary Care Unavailable Suzy Douglas Attending Unavailable Jonathan Moffett Consulting Unavailable Tita Cullen Admitting Unavailable Moisés Morelos Consulting Unavailable Jesusita Navarro Consulting Unavailabl e BrarCathy Attending Unavailable BrarCathy lucero Admitting Unavailable Naderer, Fidel Primary Care Unavailable JONATHAN MOFFETT Attending Unavailable NADERER, FIDEL Attending Unavailable JONATHAN MOFFETT Attending Unavailable JONATHAN MOFFETT Attending Unavailable JONATHAN MOFFETT Referring Unavailable JONATHAN MOFFETT Attending Unavailable JONATHAN MOFFETT Attending Unavailable JONATHAN MOFFETT Attending Unavailable JONATHAN MOFFETT Attending Unavailable Milena NAZARIO, Fidel Primary Care Provider Milena NAZAROI, Fidel Unavailable Fidel Abbott MD Primary Care Provider Allergies Allergy Classification Reported Allergen(s) Allergy Type Date of Onset Reaction(s) Facility (3 sources) Vancomycin Drug Allergy 6 Shut kidneys down [facility] Rep[facility] (9 sources) Vancomycin Drug Allergy 6 Other, Unknown [facility] (6 sources) omadacycline; 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: [omadacycl] Drug allergy 3 Renal pain (finding) [facility] (1 source) ferrous sulfate Drug Allergy 3 [facility] Repository (1 source) Vancomycin Drug Allergy 3 [facility] Repository Medications Current Medications Medication Drug Class(es) Dates Sig (Normalized) Sig (Original) Acetaminophen (1 source) Start: 06-22-2022 acetaminophen (TYLENOL) tablet 650 mg acetaminophen 325 mg / HYDROcodone bitartrate 5 mg oral tablet (4 sources) Opioid Agonist Start: 09-04-2021 take 1 tablet by mouth every six hours Hydrocodone-Acetami nophen Active 1 TAB PO Q6H 28 September 04, 2021 Start: 11-15-2017 End: 11-22-2017 take 1 tablet by mouth every six hours Hydrocodone-Acetaminophen Discontinued 1 TAB PO Q6H 28 November 15, 2017 November 22, 2017 12:01am amLODIPine 10 mg oral tablet (16 sources) Dihydropyridine Calcium Channel [place] Start: 03-23-2023 take 1 tablet by mouth once daily amLODIPine (Norvasc) 10 MG tablet Indications: Primary hypertension (CMS/HCC) Take 1 tablet by mouth once daily 30 tablet 5 03/23/2023 Active Start: 11-09-2022 amLODIPine 10 mg Tab Refills(s) 0 Start Date: 11/09/22 Status: Ordered Start: 12-08-2016 take 1 tablet by mack th once daily amLODIPine (NORVASC) 10 MG tablet Take 1 tablet by mouth daily 30 tablet 3 06/27/2022 Active Start: 12-07-2016 End: 12-08-2016 Amlodipine Discontinued Nov 12:00am December 08, 2016 2:50pm Start: 12-07-2016 End: 12-08-2016 Amlodipine Discontinued Nov 11:00pm December 08, 2016 1:50pm End: 06-26-2022 take 2 tablets by mouth once daily amlodipine (NORVASC) 5 MG tablet Take 10 mg by mouth daily 0 06/26/2022 Discontinued (Stop Taking at Discharge) atenolol 100 mg oral tablet (14 sources) beta-Adrenergic [place] Start: 06-23-2022 take 100 mg by mouth once daily 100 mg, Oral, DAILY, First dose on Wed06/23/22 at 0900, Until Discontinued Start: 11-03-2017 atenolol 100 m g Tab Refills(s) 0 Start Date: 11/09/22 Status: Ordered End: 06-26-2022 take 2 tablets by mouth once daily atenolol (TENORMIN) 50 MG tablet Take 100 mg by mouth daily. 0 06/26/2022 Discontinued (Stop Taking at Discharge) atorvastatin 40 mg oral tablet (4 sources) HMG-CoA Reductase Inhibitor Start: 04-06-2023 End: 04-05-2024 take 1 tablet by mouth in the morning atorvastatin (Lipitor) 40 MG tablet Indications: Dyslipidemia (CMS/HCC) Take 1 tablet (40 mg) by mouth in the morning. 30 tablet 5 04/06/2023 04/05/2024 Active citalopram 40 mg oral tablet (14 sources) Serotonin Reuptake Inhibitor Start: 06-23-2022 take 40 mg by mouth once daily 40 mg, Oral, DAILY, First dose on Wed06/23/22 at 0900, Until Discontinued Start: 12-07-2016 citalopram 40 mg Tab Refills(s) 0 Start Date: 11/09/22 Status: Ordered End: 06-26-2022 take 2 tablets by mouth once daily citalopram (CELEXA) 20 MG tablet Take 40 mg by mouth daily 0 06/26/2022 Discontinued (Stop Taking at Discharge) clindamycin 300 mg oral capsule (6 sources) Lincosamide Antibacterial Start: 05-13-2023 End: 05-23-2023 take 1 capsule by mouth in the morning, then take 1 capsule by mouth in the evening, then take 1 capsule by mouth at bedtime clindamycin (Cleocin) 300 MG capsule Indications: Abscess of toe, right Take 1 capsule (300 mg) by mouth in the morning and 1 capsule (300 mg) in the evening and 1 capsule (300 mg) before bedtime. Do all this for 10 days. 30 capsule 0 05/13/2023 05/23/2023 Active Start: 06-26-2022 End: 07-06-2022 take 1 capsule by mouth three times daily clindamycin (CLEOCIN) 300 MG capsule Take 1 capsule by mouth 3 times daily for 10 days 30 capsule 0 06/26/2022 07/06/2022 Active Start: 06-23-2022 End: 06-30-2022 clindamycin (CLEOCIN) 600 mg in dextrose 5 % 50 mL IVPB Start: 07-28-2018 End: 11-17-2018 Clindamycin Hcl Discontinued July 28, 2018 12:00am November 17, 2018 10:14am CMC-Calcium Alginate-Silver (TEGADERM ALGINATE AG DRESSING) 4 X 5 PADS (3 sources) Start: 06-26-2022 CMC-Calcium Alginate-Silver (TEGADERM ALGINATE AG DRESSING) 4 X 5 PADS Apply 1 each topically daily Right ankle and foot open wounds. Then cover with Kerlex and Olga 25 each 3 06/26/2022 Active ferrous sulfate 325 mg oral tablet (3 sources) Start: 06-26-2022 take 1 tablet by mouth once daily at breakfast ferrous sulfate (IRON 325) 325 (65 Fe) MG tablet Take 1 tablet by mouth daily (with breakfast) 90 tablet 1 06/26/2022 Active Gauze Pads & Dressings (KERLIX GAUZE ROLL MEDIUM) MISC (3 sources) Start: 06-26-2022 Gauze Pads & Dressings (KERLIX GAUZE ROLL MEDIUM) MISC 2 each by Does not apply route daily 96 each 2 06/26/2022 Active glipiZIDE 10 mg oral tablet (12 sources) Sulfonylurea Start: 11-09-2022 glipiZIDE (Glucotrol) 10 MG tablet Refills(s) 0 0 11/09/2022 Active Start: 06-30-2018 take 10 mg by mouth twice rachel y Glipizide Active 10 MG PO Twice daily June 30, 2018 12:00am sodium hypochlorite 1.25 mg/ ml topical spray (8 sources) Start: 06-26-2022 sodium hypochl orite (DAKINS) 0.125 % SOLN external solution Apply topically daily Use on the Curlex gauze dressings changed once daily on the sacrococcygeal wound and buttock wounds 473 mL 2 06/26/2022 Active Start: 06-23-2022 sodium hypochl orite (DAKINS) 0.125 % external solution Start: 12-07-2016 End: 11-03-2017 Sodium Hypochlorite (Dakin's Solution) 0.25 % solution Discontinued 1 APPLIC TOPICAL Daily 473 October 07, 2017 12:00am November 03, 2017 2:58pm Insulin Glargine (Lantus) 100 unit/mL Solution (2 sources) Start: 12-07-2016 inject 50 [IU] by subcutaneous injection twice daily Insulin Glargine (Lantus) 100 unit/mL Solution Active 50 UNITS SUBCUT Twice daily December 07, 2016 12:00am Start: 12-07-2016 inject 50 [IU] by paul bcutaneous injection twice daily Insulin Glargine (Lantus) 100 unit/mL Solution Active 50 UNITS SUBCUT Twice daily December 06, 2016 11:00pm 3 ml insulin lispro 100 unt/ml pen injector (2 sources) Insulin Analog Start: 05-19-2018 Insulin Lispro (Humalog Kwikpen Insulin) 100 unit/mL Insulin Pen Active 0 .ROUTE .COMPLEX May 19, 2018 1:00am SLIDING SCALE Iron (1 source) Start: 11-09-2022 IRON 65MG TAB IRON 65MG TAB Start Date: 11/09/22 Status: Ordered lisinopril 20 mg oral tablet (12 sources) Angiotensin Converting Enzyme Inhibitor Start: 11-09-2022 lisinopril 20 mg Tab Refills(s) 0 Start Date: 11/09/22 Status: Ordered Start: 12-07-2016 take 20 mg by mouth once daily in the morning Lisinopril Active 20 MG PO Every morning December 07, 2016 12:00am take 0.5 tablet by m outh once daily lisinopril (PRINIVIL;ZESTRIL) 20 MG tablet Take 0.5 tablets by mouth daily 0 Active take 10 mg by mouth once daily l isinopril (PRINIVIL;ZESTRIL) 20 MG tablet Take 10 mg by mouth daily 0 Active Multiple Vitamin (MULTIVITAMIN) TABS tablet (3 sources) Start: 06-27-2022 take 1 tablet by mouth once daily Multiple Vitamin (MULTIVITAMIN) TABS tablet Take 1 tablet by mouth daily 30 tablet 2 06/27/2022 Active multivitamin 1 tablet (1 source) Start: 06-25-2022 multivitamin 1 tablet ondansetron (ZOFRAN-ODT) disintegrating tablet 4 mg (1 source) Start: 06-22-2022 ondansetron (ZOFRAN-ODT) disintegrating tablet 4 mg 24 hr oxybutynin chloride 15 mg extended release oral tablet (12 sources) Cholinergic Muscarinic Antagonist Start: 11-09-2022 oxybutynin 15 mg ER Tab Refills(s) 0 Start Date: 11/09/22 Status: Ordered Start: 03-23-2019 take 10 mg by mouth once daily Oxybutynin Chloride Active 10 MG PO Daily March 23, 2019 1:00am SITagliptin 100 mg oral tablet (5 sources) Dipeptidyl Peptidase 4 Inhibitor Start: 11-09-2022 Januvia 100 mg Tab 100 mg = 1 tab(s), Refills(s) 0 Start Date: 11/09/22 Status: Ordered Start: 07-29-2021 take 1 tablet by mack th once daily JANUVIA 100 MG tablet Take 1 tablet by mouth daily 0 06/25/2022 Active 1000 ml sodium chloride 9 mg /ml injection (6 sources) Start: 06-22-2022 0.9 % sodium c hloride infusion Start: 06-22-2022 IntraVENous, a t 5-250 mL/hr, PRN, if patient receiving piggyback infusions and maintenance fluids are not ordered OR KVO fluids to protect IV site / prevent frequent line interruptions/ long duration, Starting on Wed06/22/22 at 2018 For piggyback infusion, administer at same rate as piggyback for a total of 25 mL. Enter 25 mL into dose field and piggyback rate into rate field of order. If piggyback is infusing at a rate less than 100 mL/hr, enter 25 mL into dose field and 100 mL/hr into rate field of order. For KVO fluids, enter rate of 20 mL/hr or less into rate field of order. Start: 06-22-2022 10 mL, IntraVE Nous, EVERY 12 HOURS SCHEDULED (2 times per day), First dose on Wed06/22/22 at 2100, Until Discontinued Start: 06-22-2022 take 10 mL intraveno usly once as needed 10 mL, IntraVENous, PRN, Starting on 06/22/22 at 2018, Until Discontinued, Line Care, After every IV line use Start: 06-22-2022 End: 06-22-2022 0.9 % sodium chloride bolus Completed/Discontinued Medications Medication Drug Class(es) Dates Sig (Normalized) Sig (Original) amoxicillin 875 mg / clavulanate 125 mg oral tablet (4 sources) Penicillin-class Antibacterial Start: 04-30-2020 End: 05-06-2020 take 1 tablet by mouth twice daily Amoxicillin-Pot Clavulanate (Augmentin) 875-125 mg Tablet Discontinued 1 TAB PO Twice daily April 30, 2020 1:00am May 06, 2020 7:39pm Start: 10-12-2017 End: 10-26-2017 take 1 tablet by mouth twice daily Amoxicillin-Pot Clavulanate (Augmentin) 875-125 mg tablet Discontinued 1 TAB PO Twice daily October 12, 2017 12:00am October 26, 2017 12:01am betamethasone 0.001 mg/mg topical ointment (2 sources) Corticosteroid Start: 11-17-2018 End: 03-23-2019 Betamethasone Valerate Discontinued 1 APPLIC TOPICAL Daily November 17, 2018 10:49am March 23, 2019 12:03pm use for 2 wks on and 1 wk off to affected area calcium gluconate 1,000 mg in sodium chloride 0.9 % 100 mL IVPB (1 source) Start: 06-22-2022 End: 06-22-2022 calcium gluconate 1,000 mg in sodium chloride 0.9 % 100 mL IVPB cephalexin 500 mg oral capsule (2 sources) Cephalosporin Antibacterial Start: 11-30-2017 End: 12-16-2017 take 500 mg by mouth three times daily Cephalexin Discontinued 500 MG PO Three times daily November 30, 2017 12:00am December 16, 2017 10:12am x10 days as ordered per Dr. Brar dicloxacillin 500 mg oral capsule (2 sources) Penicillin-class Antibacterial Start: 06-01-2017 End: 08-24-2017 take 500 mg by mouth three times daily Dicloxacillin Discontinued 500 MG PO Three times daily June 01, 2017 1:00am August 24, 2017 10:21am doxycycline hyclate 100 mg oral capsule (2 sources) Tetracycline-class Drug Start: 03-23-2019 End: 01-02-2020 take 100 mg by mouth twice daily Doxycycline Hyclate Discontinued 100 MG PO Twice daily 56 March 23, 2019 1:00am January 02, 2020 11:08am fenofibrate 160 mg oral tablet (10 sources) Peroxisome Proliferator Receptor alpha Agonist Start: 06-23-2022 take 160 mg by mouth once daily 160 mg, Oral, DAILY, First dose on Wed06/23/22 at 0900, Until Discontinued Substituted for Fenofibrate (Non-Formulary Dose). Start: 11-19-2020 take 145 mg by mouth once daily at bedtime Fenofibrate Nanocrystallized Active 145 MG PO Daily at bedtime November 19, 2020 12:00am Start: 12-07-2016 End: 11-19-2020 take 145 mg by mouth once daily at bedtime Fenofibrate Discontinued 145 MG PO Daily at bedtime December 07, 2016 12:00am November 19, 2020 11:09am gentamicin 0.001 mg/mg topic al ointment (4 sources) Start: 11-23-2017 End: 05-19-2018 Gentamicin Discontinued 1 AP PLIC TOPICAL Daily November 23, 2017 12:00am May 19, 2018 12:36pm apply to ulcers as directed Start: 04-08-2017 End: 11-02-2017 Gentamicin Discontinued 1 AP PLIC TOPICAL Daily April 08, 2017 1:00am November 02, 2017 11:29am apply to sacral ulcer daily gentamicin (GARAMYCIN) 250 mg in sterile water for irrigation 250 mL irrigation (1 source) Start: 06-25-2022 End: 06-25-2022 gentamicin (GARAMYCIN) 250 mg in sterile water for irrigation 250 mL irrigation 1000 ml glucose 500 mg/ml injection (1 source) Start: 06-22-2022 End: 06-22-2022 dextrose 50 % IV solution 1 ml heparin sodium, porcine 5000 unt/ml prefilled syringe (1 source) Unfractionated Heparin, Anti-coagulant Start: 06-22-2022 inject 1 dose by subcutaneous injection three times daily 5,000 Units, SubCUTAneous, EVERY 8 HOURS SCHEDULED (3 times per day), First dose on Wed06/22/22 at 2200, Until Discontinued insulin aspart (NOVOLOG) 100 UNIT/ML injection vial (3 sources) End: 06-26-2022 insulin aspart (NOVOLOG) 100 UNIT/ML injection vial Inject into the skin 3 times daily (before meals) Sliding scale 0 06/26/2022 Discontinued (Stop Taking at Discharge) insulin aspart ( NOVOLOG) 100 UNIT/ML injection vial Inject into the skin 3 times daily (before meals) Sliding scale 0 Suspended insulin aspart, human 100 unt/ml injectable solution (2 sources) Insulin Analog Start: 12-07-2016 End: 05-19-2018 inject 1 [IU] by subcutaneous injection three times daily at mealtime Insulin Aspart U-100 (Novolog) 100 unit/mL Solution Discontinued 1 UNITS SUBCUT THREE TIMES DAILY WITH MEALS December 07, 2016 12:00am May 19, 2018 12:36pm Patient not sure of actual corrective scale but felt this was correct insulin glargine 100 unt/ml injectable solution (3 sources) Insulin Analog Start: 04-13-2017 End: 06-26-2022 insulin glargine (LANTUS) 100 UNIT/ML injection vial Inject 45 Units into the skin 2 times daily 1 vial 3 04/13/2017 06/26/2022 Discontinued (Stop Taking at Discharge) insulin, regular, human 100 unt/ml injectable solution (1 source) Insulin Start: 06-22-2022 End: 06-22-2022 insulin regular (HUMULIN R;NOVOLIN R) injection 10 Units levoFLOXacin 750 mg oral tablet (2 sources) Quinolone Antimicrobial Start: 10-16-2021 End: 11-18-2021 take 750 mg by mouth once daily Levofloxacin Discontinued 750 MG PO Daily October 16, 2021 12:00am November 18, 2021 11:49am x6 weeks, Called to pharmacy 09/09/2021 polyethylene glycol 3350 65082 mg powder for oral solution (1 source) Osmotic Laxative Start: 06-22-2022 17 g, Oral, DAILY PRN, Starting on Wed06/22/22 at 2018, Until Discontinued, Constipation First line therapy for constipation polyethylene glycol 3350 992515 mg / potassium chloride 2970 mg / sodium bicarbonate 6740 mg / sodium chloride 5860 mg / sodium sulfate 54551 mg powder for oral solution (1 source) Osmotic Laxative Start: 06-25-2022 End: 06-25-2022 polyethylene glycol (GoLYTELY) solution 4,000 mL Start: 06-25-2022 End: 06-25-2022 polyethylene glycol (GoLYTEL Y) solution 4,000 mL rosuvastatin calcium 20 mg oral tablet (5 sources) HMG-CoA Reductase Inhibitor Start: 12-07-2016 End: 06-26-2022 take 1 tablet by mouth once daily Rosuvastatin (Crestor) 20 mg Tablet Discontinued 20 MG PO Daily December 07, 2016 12:00am March 23, 2019 12:03pm silver sulfADIAZINE 10 mg/ml topical cream (2 sources) Sulfonamide Antibacterial Start: 09-22-2018 End: 03-23-2019 Silver Sulfadiazine (Silvadene) 1 % cream Discontinued 1 APPLIC TOPICAL Daily 400 September 22, 2018 12:00am March 23, 2019 12:03pm apply a 1.5 mm thickness sodium polystyrene sulfonate 250 mg/ml oral suspension (1 source) Start: 06-22-2022 End: 06-22-2022 sodium polystyrene (KAYEXALATE) 15 GM/60ML suspension 45 g sodium zirconium cyclosilicate 76120 mg powder for oral suspension (1 source) Start: 06-23-2022 End: 06-23-2022 sodium zirconium cyclosilicate (LOKELMA) oral suspension 10 g sulfamethoxazole 800 mg / trimethoprim 160 mg oral tablet (6 sources) Dihydrofolate Reductase Inhibitor Antibacterial, Sulfonamide Antimicrobial Start: 04-07-2018 End: 11-18-2021 take 1 tablet by mouth once daily Sulfamethoxazole-T rimethoprim (Bactrim Ds) 800-160 mg Tablet Discontinued 1 TAB PO Daily April 07, 2018 1:00am November 18, 2021 11:49am Start: 06-22-2017 End: 08-24-2017 take 1 tablet by mouth twice daily Sulfamethoxazole-Trimethoprim (Bactrim D s) 800-160 mg Tablet Discontinued 1 TAB PO Twice daily June 22, 2017 12:00am August 24, 2017 10:21am Start: 12-07-2016 End: 12-08-2016 Bactrim Discontinued [facility] 2016 12:00am December 08, 2016 2:50pm Start: 12-07-2016 End: 12-08-2016 Bactrim Discontinued [facility] 2016 11:00pm December 08, 2016 1:50pm Problems Active Problems Problem Classification Problem Date Documented Date Episodic/Chronic Chronic kidney disease (6 sources) Chronic kidney disease; 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: [Chronic kidney disease, unspecified] Onset: 4 06-30-2018 Chronic Chronic kidney disease (1 source) Chronic kidney disease; 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: [Chronic kidney disease, stage 3 unspecified] Onset: 3 Chronic ulcer of skin (20 sources) Non-pressure chronic ulcer of skin of other sites with other specified severity; 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: [Pressure ulcer of unspecified site, unspecified stage] Onset: 4 Resolved: 8 12-10-2016 Chronic Complication of device; implant or graft (4 sources) Injury of cauda equina ; 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: [Injury of cauda equina, initial encounter] 09-23-2017 Chronic Complications of surgical procedures or medical care (1 source) Urethral stricture due to and following procedure; 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: [Postprocedural urethral stricture, male, overlapping sites] Onset: 3 07-06-2022 Episodic Deficiency and other anemia (6 sources) Iron deficiency anemia; 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: [Iron deficiency anemia, unspecified] Onset: 3 Episodic Deficiency and other anemia (2 sources) Iron deficiency anemia, unspecified; 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: [Iron deficiency anemia, unspecified] Onset: 3 Episodic Deficiency and other anemia (1 source) Anemia 11-09-2022 Episodic Diabetes mellitus with complications (18 sources) Type 2 diabetes mellitus with hyperglycemia; 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: [Diabetic foot ulcer] Onset: 2 Chronic Diabetes mellitus without complication (10 sources) Diabetes mellitus; 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: [Type 2 diabetes mellitus without complications] Onset: 2 05-06-2020 Chronic Disorders of lipid metabolism (10 sources) Mixed hyperlipidemia; 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: [Mixed hyperlipidemia] Onset: 6 04-25-2015 Chronic Essential hypertension (10 sources) Hypertensive disorder; 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: [Essential (primary) hypertension] Onset: 4 12-24-2016 Chronic Gastritis and duodenitis (4 sources) Chronic superficial gastritis; 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: [Chronic superficial 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] Onset: 4 04-06-2023 Chronic Genitourinary symptoms and ill-defined conditions (6 sources) Incontinence without sensory awareness; 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: [Incontinence without sensory awareness] Onset: 3 Chronic Genitourinary symptoms and ill-defined conditions (4 sources) Retention of urine; 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: [Retention of urine, unspecified] Onset: 3 Episodic Infective arthritis and osteomyelitis (except that caused by tuberculosis or sexually transmitted disease) (19 sources) Osteomyelitis of right foot; 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: [Osteomyelitis, unspecified] Onset: 7 Resolved: 8 12-28-2016 Chronic Mood disorders (9 sources) Depressive disorder; 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: [Depression] Onset: 4 12-24-2016 Chronic Other aftercare (1 source) ocean transportation intermediary (current) use of insulin; 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: [ocean transportation intermediary (current) use of insulin] Onset: 3 Episodic Other diseases of bladder and urethra (7 sources) Neurogenic bladder; 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: [Neuromuscular dysfunction of bladder, unspecified] Onset: 3 Chronic Other diseases of bladder and urethra (1 source) Neuromuscular dysfunction of bladder, unspecified; 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: [Neuromuscular dysfunction of bladder, unspecified] Onset: 3 Chronic Other diseases of bladder and urethra (1 source) Neurogenic dysfunction of the urinary bladder; 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: [Neuromuscular dysfunction of bladder, unspecified] Onset: 3 Chronic Other diseases of bladder and urethra (2 sources) Male urethral stricture; 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: [Unspecified urethral stricture, male, unspecified site] Onset: 3 Episodic Other diseases of veins and lymphatics (2 sources) Vascular insufficiency; 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: [Venous insufficiency (chronic) (peripheral)] 05-06-2023 Episodic Other injuries and conditions due to external causes (2 sources) Injury of cauda equina ; 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: [Injury of cauda equina, subsequent encounter] 06-01-2017 Episodic Other injuries and conditions due to external causes (1 source) Injury of cauda equina, subsequent encounter; 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: [Injury of cauda equina, subsequent encounter] Onset: 3 Episodic Other nervous system disorders (2 sources) Acute postoperative pain; 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: [Other acute postprocedural pain] 09-04-2021 Episodic Other non-traumatic joint disorders (6 sources) Pain in right hip; 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: [Pain in joint, pelvic region and thigh] Onset: 2 Episodic Other non-traumatic joint disorders (2 sources) Hip pain; 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: [Pain in right hip] 01-27-2022 Episodic Other nutritional; endocrine; and metabolic disorders (2 sources) Obesity; 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: [Obesity, unspecified] 09-23-2017 Chronic Other nutritional; endocrine; and metabolic disorders (5 sources) Morbid obesity; 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: [Morbid (severe) obesity due to excess calories] Onset: 7 01-01-2017 Chronic Other screening for suspected conditions (not mental disorders or infectious disease) (4 sources) Electrocardiogram abnormal; 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: [Abnormal electrocardiogram [ECG] [EKG]] Onset: 3 Episodic Other skin disorders (4 sources) Vesicular eczema; 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: [Dyshidrosis [pompholyx]] Onset: 4 04-06-2023 Episodic Paralysis (20 sources) Cauda equina syndrome; 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: [Cauda equina syndrome] Onset: 1 04-30-2020 Chronic Peripheral and visceral atherosclerosis (1 source) Peripheral vascular disease, unspecified; 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: [Peripheral vascular disease, unspecified] Onset: 3 Chronic Residual codes; unclassified (1 source) Sleep apnea 11-09-2022 Chronic Residual codes; unclassified (4 sources) Obstructive sleep apnea syndrome; 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: [Obstructive sleep apnea (adult) (pediatric)] Onset: 4 04-06-2023 Chronic Residual codes; unclassified (2 sources) Pain; 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: [Pain, unspecified] 05-19-2018 Episodic Skin and subcutaneous tissue infections (20 sources) Cellulitis, unspecified; 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: [Cellulitis] Onset: 1 Resolved: 8 04-20-2019 Episodic Unclassified (1 source) Pressure ulcer of sacral region, stage 4; 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: [Pressure ulcer of sacral region, stage 4] Onset: 3 Urinary tract infections (4 sources) Recurrent urinary tract infection; 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: [Urinary tract infection, site not specified] Onset: 4 04-06-2023 Episodic Past or Other Problems Problem Classification Problem Date Documented Date Episodic/Chronic Acute and unspecified renal failure (16 sources) [id number] renal failure; 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: [Acute kidney failure, unspecified] Onset: 12-30-2016 12-30-2016 Episodic Bacterial infection; unspecified site (15 sources) Infection due to enterococcus; 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: [Enterococcus as the cause of diseases classified elsewhere] Onset: 12-28-2016 12-28-2016 Episodic Fluid and electrolyte disorders (13 sources) Hyponatremia; 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: [Hypo-osmolality and hyponatremia] Onset: 04-25-2015 04-25-2015 Episodic Open wounds of extremities (11 sources) Open wound of lower limb with complication; 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: [Unspecified open wound, unspecified knee, initial encounter] Onset: 02-25-2011 01-07-2017 Episodic Septicemia (except in labor) (5 sources) Sepsis due to methicillin resistant Staphylococcus aureus; 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: [Sepsis due to Methicillin resistant Staphylococcus aureus] Onset: 09-09-2016 Resolved: 05-26-2017 05-26-2017 Episodic Results Test Name Value Interpretation Reference Range Facility Reminderson 04-30-2023 Reminders - From: Ama Arteaga To: [place] - Recalls [place]; Cc: Aam Arteaga; Sent: 01/15/2023 08:12:10 EDT Show up: 04/29/2023 08:12:00 EST Subject: Cysto/UD Due Date/Time: 06/07/2023 08:11:00 EDT Reminder/Recall Patient needs 6 month cysto/UD in June 2023 Spoke to pt, sched for 07/12/[address] [facility].LG Patient will be due in Dec 2023.LG Normal [facility] Basic Metabolic Panelon 11-1 Anion gap [Moles/Vol] 8.4 mmol/L Normal 6.0-15.0 [facility] Comment on above: Performed By: #### G LULS #### Point of Care testing , Calcium [Mass/Vol] 7.8 mg/dL Low 8.6-10.3 [facility] Comment on above: Performed By: #### G LULS #### Point of Care testing , Chloride [Moles/Vol] 108 mmol/L High 98-107 [facility] Comment on above: Performed By: #### G LULS #### Point of Care testing , CO2 [Moles/Vol] 24.7 mmol/L Normal 21.0-31.0 [facility] Comment on above: Performed By: #### G MAURICIOLS #### Point of Care testing , Creatinine [Mass/Vol] 1.41 mg/dL High 0.70-1.30 [facility] Comment on above: Performed By: #### G MAURICIOLS #### Point of Care testing , Creatinine Clr Calc Pharmacy 69.02 Normal [facility] Comment on above: Result Comment: PERF ORMED BY: [facility] [address] [place] [address] PATHOLOGIST EMAIL PRODUCER FARRAH PAUL M.D. Performed By: #### G MAURICIOLS #### Point of Care testing , GFR/1.73 sq M.predicted MDRD (S/P/Bld) [Vol rate/Area] 56.696 mL/min/{1.73_m2} Normal [facility] Comment on above: Performed By: #### G MAURICIOLS #### Point of Care testing , Glucose [Mass/Vol] 176 mg/dL Significant change up 70-100 [facility] Comment on above: Result Comment: [place] Glucose Reference Range is dependent on time and content of last meal. Glucose of more than 200 mg/dL in a nonstressed, ambulatory subject supports the diagnosis of Diabetes Mellitus. ADA recommended reference range Performed By: #### G MAURICIOLS #### Point of Care testing , Potassium [Moles/Vol] 4.1 mmol/L Normal 3.5-5.1 [facility] Comment on above: Performed By: #### G MAURICIOLS #### Point of Care testing , Sodium [Moles/Vol] 137 mmol/L Normal 136-145 [facility] Comment on above: Performed By: #### G MAURICIOLS #### Point of Care testing , Urea nitrogen [Mass/Vol] 17 mg/dL Normal 7-25 [facility] Comment on above: Performed By: #### G MAURICIOLS #### Point of Care testing , Glucose Poct Glucometerson 1 04-15-2022 Commemt1 Glu2: Cleaned Meter Normal [facility] Comment on above: Result Comment: PERF ORMED BY: [facility] [address] [place] [address] PATHOLOGIST EMAIL PRODUCER FARRAH PAUL M.D. Performed By: #### G LULS #### Point of Care testing , Glucose [Mass/Vol] 162 mg/dL Normal [facility] Comment on above: Result Comment: [place] om Glucose Reference Range is dependent on time and content of last meal. Glucose of more than 200 mg/dL in a nonstressed, ambulatory subject supports the diagnosis of Diabetes Mellitus. Performed By: #### G LULS #### Point of Care testing , Glucose [Mass/Vol] 76 mg/dL Normal [facility] Comment on above: Result Comment: [place] om Glucose Reference Range is dependent on time and content of last meal. Glucose of more than 200 mg/dL in a nonstressed, ambulatory subject supports the diagnosis of Diabetes Mellitus. PERFORMED BY: [facility] [address] [place] [address] PATHOLOGIST EMAIL PRODUCER FARRAH PAUL M.D. Performed By: #### G LULS #### Point of Care testing , Basic Metabolic Panelon 01-27 Anion gap [Moles/Vol] 10.8 mmol/L Normal 6.0-15.0 [facility] Comment on above: Performed By: #### G MAURICIOLS #### Point of Care testing , Calcium [Mass/Vol] 8.0 mg/dL Low 8.6-10.3 [facility] Comment on above: Performed By: #### G LULS #### Point of Care testing , Chloride [Moles/Vol] 106 mmol/L Normal 98-107 [facility] Comment on above: Performed By: #### G LULS #### Point of Care testing , CO2 [Moles/Vol] 26.2 mmol/L Normal 21.0-31.0 [facility] Comment on above: Performed By: #### G LULS #### Point of Care testing , Creatinine [Mass/Vol] 1.47 mg/dL High 0.70-1.30 [facility] Comment on above: Performed By: #### G LULS #### Point of Care testing , Creatinine Clr Calc Pharmacy 66.15 Normal [facility] Comment on above: Result Comment: PERF ORMED BY: [facility] [address] [place] [address] PATHOLOGIST EMAIL PRODUCER FARRAH PAUL M.D. Performed By: #### G LULS #### Point of Care testing , GFR/1.73 sq M.predicted MDRD (S/P/Bld) [Vol rate/Area] 53.931 mL/min/{1.73_m2} Normal [facility] Comment on above: Performed By: #### G LULS #### Point of Care testing , Glucose [Mass/Vol] 71 mg/dL Normal 70-100 [facility] Comment on above: Result Comment: [facility] Glucose Reference Range is dependent on time and content of last meal. Glucose of more than 200 mg/dL in a nonstressed, ambulatory subject supports the diagnosis of Diabetes Mellitus. ADA recommended reference range Performed By: #### G LULS #### Point of Care testing , Potassium [Moles/Vol] 4.0 mmol/L Normal 3.5-5.1 [facility] Comment on above: Performed By: #### G LULS #### Point of Care testing , Sodium [Moles/Vol] 139 mmol/L Normal 136-145 [facility] Comment on above: Performed By: #### G LULS #### Point of Care testing , Urea nitrogen [Mass/Vol] 18 mg/dL Normal 7-25 [facility] Comment on above: Performed By: #### G LULS #### Point of Care testing , Complete Blood Count Auto Di ffon 02-12-2023 Basophils (Bld) [#/Vol] 0.1 10*3/uL Normal 0.0-0.2 [facility] Comment on above: Result Comment: PERF ORMED BY: [facility] [address] [place] [address] PATHOLOGIST EMAIL PRODUCER FARRAH PAUL M.D. Performed By: #### G MAURICIOLS #### Point of Care testing , Basophils/100 WBC (Bld) 0.6 % Normal . [facility] Comment on above: Performed By: #### G MAURICIOLS #### Point of Care testing , Eosinophils (Bld) [#/Vol] 0.7 10*3/uL High 0.0-0.45 [facility] Comment on above: Performed By: #### G MAURICIOLS #### Point of Care testing , Eosinophils/100 WBC (Bld) 5.7 % Normal . [facility] Comment on above: Performed By: #### G MAURICIOLS #### Point of Care testing , Erythrocyte distribution width (RBC) [Ratio] 15.6 % High 12.0-14.8 [facility] Comment on above: Performed By: #### G MAURICIOLS #### Point of Care testing , Hematocrit (Bld) [Volume fraction] 27.3 % Low 38.8-50.0 [facility] Comment on above: Performed By: #### G MAURICIOLS #### Point of Care testing , Hemoglobin (Bld) [Mass/Vol] 8.7 g/dL Low 13.0-17.0 [facility] Comment on above: Performed By: #### G MAURICIOLS #### Point of Care testing , Lymphocytes (Bld) [#/Vol] 2.2 10*3/uL Normal 1.00-4.8 [facility] Comment on above: Performed By: #### G MAURICIOLS #### Point of Care testing , Lymphocytes/100 WBC (Bld) 18.7 % Normal . [facility] Comment on above: Performed By: #### G MAURICIOLS #### Point of Care testing , MCH (RBC) [Entitic mass] 25.4 pg Low 27.5-35.2 [facility] Comment on above: Performed By: #### G MAURICIOLS #### Point of Care testing , MCV (RBC) [Entitic vol] 79.6 fL Low 83.5-101 [facility] Comment on above: Performed By: #### G MAURICIOLS #### Point of Care testing , Mean Corpuscular HGB Conc 32.0 g/dL Low 32.5-35.6 [facility] Comment on above: Performed By: #### Eros CALABRESE #### Point of Care testing , Monocytes (Bld) [#/Vol] 1.0 10*3/uL High 0.0-0.8 [facility] Comment on above: Performed By: #### Eros CALABRESE #### Point of Care testing , Monocytes/100 WBC (Bld) 8.8 % Normal . [facility] Comment on above: Performed By: #### Eros CALABRESE #### Point of Care testing , Neutrophils (Bld) [#/Vol] 7.9 10*3/uL High 1.8-7.7 [facility] Comment on above: Performed By: #### Eros CALABRESE #### Point of Care testing , Neutrophils/100 WBC (Bld) 66.2 % Normal . [facility] Comment on above: Performed By: #### Eros MARTÍNEZLS #### Point of Care testing , NRBC% 0.1 /100{WBC} Normal 0-0.5 [facility] Comment on above: Performed By: ###[place] CALABRESE #### Point of Care testing , Platelet mean volume (Bld) [Entitic vol] 6.4 fL Low 6.6-10.1 [facility] Comment on above: Performed By: #### Eros CALABRESE #### Point of Care testing , Platelets (Bld) [#/Vol] 305 10*3/uL Normal 150-450 [facility] Comment on above: Performed By: #### Eros CALABRESE #### Point of Care testing , RBC (Bld) [#/Vol] 3.43 10*6/uL Low 3.90-5.60 [facility] Comment on above: Performed By: #### Eros CALABRESE #### Point of Care testing , WBC (Bld) [#/Vol] 11.9 10*3/uL High 4.1-10.5 [facility] Comment on above: Performed By: #### G LULS #### Point of Care testing , Glucose Poct Glucometerson 1 04-14-2022 Glucose [Mass/Vol] 138 mg/dL Normal [facility] Comment on above: Result Comment: [facility] Glucose Reference Range is dependent on time and content of last meal. Glucose of more than 200 mg/dL in a nonstressed, ambulatory subject supports the diagnosis of Diabetes Mellitus. PERFORMED BY: [address] [place] [address] PATHOLOGIST EMAIL PRODUCER FARRAH PAUL M.D. Performed By: #### G LULS #### Point of Care testing , Glucose [Mass/Vol] 172 mg/dL Normal [facility] Comment on above: Result Comment: [facility] Glucose Reference Range is dependent on time and content of last meal. Glucose of more than 200 mg/dL in a nonstressed, ambulatory subject supports the diagnosis of Diabetes Mellitus. PERFORMED BY: [address] [place] [address] PATHOLOGIST EMAIL PRODUCER FARRAH PAUL M.D. Performed By: #### G LULS #### Point of Care testing , Glucose [Mass/Vol] 99 mg/dL Normal [facility] Comment on above: Result Comment: [facility] Glucose Reference Range is dependent on time and content of last meal. Glucose of more than 200 mg/dL in a nonstressed, ambulatory subject supports the diagnosis of Diabetes Mellitus. PERFORMED BY: [address] [place] [address] PATHOLOGIST EMAIL PRODUCER FARRAH PAUL M.D. Performed By: #### G LULS #### Point of Care testing , Commemt1 Glu2: Cleaned Meter Normal [facility] Comment on above: Result Comment: PERF ORMED BY: [facility] [address] [place] [id number] PATHOLOGIST EMAIL PRODUCER FARRAH PAUL M.D. Performed By: #### G LULS #### Point of Care testing , Glucose [Mass/Vol] 81 mg/dL Normal [facility] Comment on above: Result Comment: [facility] Glucose Reference Range is dependent on time and content of last meal. Glucose of more than 200 mg/dL in a nonstressed, ambulatory subject supports the diagnosis of Diabetes Mellitus. Performed By: #### G LULS #### Point of Care testing , Basic Metabolic Panelon 01-27 Anion gap [Moles/Vol] 10.0 mmol/L Normal 6.0-15.0 [facility] Comment on above: Performed By: #### G LULS #### Point of Care testing , Calcium [Mass/Vol] 8.2 mg/dL Low 8.6-10.3 [facility] Comment on above: Performed By: #### G LULS #### Point of Care testing , Chloride [Moles/Vol] 106 mmol/L Normal 98-107 [facility] Comment on above: Performed By: #### G LULS #### Point of Care testing , CO2 [Moles/Vol] 24.4 mmol/L Normal 21.0-31.0 [facility] Comment on above: Performed By: #### G LULS #### Point of Care testing , Creatinine [Mass/Vol] 1.25 mg/dL Normal 0.70-1.30 [facility] Comment on above: Performed By: #### G LULS #### Point of Care testing , Creatinine Clr Calc Pharmacy 77.72 [facility] Comment on above: Result Comment: PERF ORMED BY: [facility] [address] [place] [address] PATHOLOGIST EMAIL PRODUCER FARRAH PAUL M.D. Performed By: #### G LULS #### Point of Care testing , GFR/1.73 sq M.predicted MDRD (S/P/Bld) [Vol rate/Area] mL/min/{1.73_m2} [facility] Comment on above: Performed By: #### G LULS #### Point of Care testing , Glucose [Mass/Vol] 164 mg/dL High 70-100 [facility] Comment on above: Result Comment: [facility] Glucose Reference Range is dependent on time and content of last meal. Glucose of more than 200 mg/dL in a nonstressed, ambulatory subject supports the diagnosis of Diabetes Mellitus. ADA recommended reference range Performed By: #### G LULS #### Point of Care testing , Potassium [Moles/Vol] 4.4 mmol/L Normal 3.5-5.1 [facility] Comment on above: Performed By: #### G LULS #### Point of Care testing , Sodium [Moles/Vol] 136 mmol/L Normal 136-145 [facility] Comment on above: Performed By: #### G LULS #### Point of Care testing , Urea nitrogen [Mass/Vol] 18 mg/dL Normal 7-25 [facility] Comment on above: Performed By: #### G LULS #### Point of Care testing , Complete Blood Count Auto Di ffon 02-11-2023 Basophils (Bld) [#/Vol] 0.0 10*3/uL Normal 0.0-0.2 [facility] Comment on above: Result Comment: PERF ORMED BY: [facility] [address] [place] [address] PATHOLOGIST EMAIL PRODUCER FARRAH PAUL M.D. Performed By: #### G LULS #### Point of Care testing , Basophils/100 WBC (Bld) 0.3 % Normal . [facility] Comment on above: Performed By: #### G LULS #### Point of Care testing , Eosinophils (Bld) [#/Vol] 0.7 10*3/uL High 0.0-0.45 [facility] Comment on above: Performed By: #### G LULS #### Point of Care testing , Eosinophils/100 WBC (Bld) 5.1 % Normal . [facility] Comment on above: Performed By: #### G LULS #### Point of Care testing , Erythrocyte distribution width (RBC) [Ratio] 15.2 % High 12.0-14.8 [facility] Comment on above: Performed By: #### G LULS #### Point of Care testing , Hematocrit (Bld) [Volume fraction] 28.7 % Low 38.8-50.0 [facility] Comment on above: Performed By: #### G MAURICIOLS #### Point of Care testing , Hemoglobin (Bld) [Mass/Vol] 9.3 g/dL Low 13.0-17.0 [facility] Comment on above: Performed By: #### G MAURICIOLS #### Point of Care testing , Lymphocytes (Bld) [#/Vol] 1.0 10*3/uL Normal 1.00-4.8 [facility] Comment on above: Performed By: #### G MAURICIOLS #### Point of Care testing , Lymphocytes/100 WBC (Bld) 7.5 % Normal . [facility] Comment on above: Performed By: #### G MAURICIOLS #### Point of Care testing , MCH (RBC) [Entitic mass] 25.8 pg Low 27.5-35.2 [facility] Comment on above: Performed By: #### G MAURICIOLS #### Point of Care testing , MCV (RBC) [Entitic vol] 79.3 fL Low 83.5-101 [facility] Comment on above: Performed By: #### G BHARATI #### Point of Care testing , Mean Corpuscular HGB Conc 32.5 g/dL Normal 32.5-35.6 [facility] Comment on above: Performed By: #### G MAURICIOLS #### Point of Care testing , Monocytes (Bld) [#/Vol] 0.8 10*3/uL Normal 0.0-0.8 [facility] Comment on above: Performed By: #### G MAURICIOLS #### Point of Care testing , Monocytes/100 WBC (Bld) 6.0 % Normal . [facility] Comment on above: Performed By: #### G MAURICIOLS #### Point of Care testing , Neutrophils (Bld) [#/Vol] 10.5 10*3/uL High 1.8-7.7 [facility] Comment on above: Performed By: #### G MAURICIOLS #### Point of Care testing , Neutrophils/100 WBC (Bld) 81.1 % Normal . [facility] Comment on above: Performed By: #### G LULS #### Point of Care testing , NRBC% 0.0 /100{WBC} Normal 0-0.5 [facility] Comment on above: Performed By: #### G LULS #### Point of Care testing , Platelet mean volume (Bld) [Entitic vol] 6.4 fL Low 6.6-10.1 [facility] Comment on above: Performed By: #### G MAURICIOLS #### Point of Care testing , Platelets (Bld) [#/Vol] 339 10*3/uL Normal 150-450 [facility] Comment on above: Performed By: #### G LULS #### Point of Care testing , RBC (Bld) [#/Vol] 3.62 10*6/uL Low 3.90-5.60 [facility] Comment on above: Performed By: #### G MAURICIOLS #### Point of Care testing , WBC (Bld) [#/Vol] 12.9 10*3/uL High 4.1-10.5 [facility] Comment on above: Performed By: #### G MAURICIOLS #### Point of Care testing , Glucose Poct Glucometerson 1 04-13-2022 Commemt1 Glu2: Cleaned Meter Normal [facility] Comment on above: Result Comment: PERF ORMED BY: [facility] [address] [place] [address] PATHOLOGIST EMAIL PRODUCER FARRAH PAUL M.D. Performed By: #### G LULS #### Point of Care testing , Glucose [Mass/Vol] 174 mg/dL Normal [facility] Comment on above: Result Comment: [place] [facility] Glucose Reference Range is dependent on time and content of last meal. Glucose of more than 200 mg/dL in a nonstressed, ambulatory subject supports the diagnosis of Diabetes Mellitus. Performed By: #### G LULS #### Point of Care testing , Glucose [Mass/Vol] 182 mg/dL Normal [facility] Comment on above: Result Comment: [place] [facility] Glucose Reference Range is dependent on time and content of last meal. Glucose of more than 200 mg/dL in a nonstressed, ambulatory subject supports the diagnosis of Diabetes Mellitus. PERFORMED BY: [address] [address] PATHOLOGIST EMAIL PRODUCER FARRAH PAUL M.D. Performed By: #### G LULS #### Point of Care testing , Commemt1 Glu2: Cleaned Meter [facility] Comment on above: Result Comment: PERF ORMED BY: [address] [place] [address] PATHOLOGIST EMAIL PRODUCER FARRAH PAUL M.D. Performed By: #### G LULS #### Point of Care testing , Glucose [Mass/Vol] 169 mg/dL Normal [facility] Comment on above: Result Comment: [place] om Glucose Reference Range is dependent on time and content of last meal. Glucose of more than 200 mg/dL in a nonstressed, ambulatory subject supports the diagnosis of Diabetes Mellitus. Performed By: #### G LULS #### Point of Care testing , Glucose [Mass/Vol] 144 mg/dL Normal [facility] Comment on above: Result Comment: [place] [facility] Glucose Reference Range is dependent on time and content of last meal. Glucose of more than 200 mg/dL in a nonstressed, ambulatory subject supports the diagnosis of Diabetes Mellitus. PERFORMED BY: [address] [place] [address] PATHOLOGIST EMAIL PRODUCER FARRAH PAUL M.D. Performed By: #### G LULS #### Point of Care testing , Commemt1 Glu2: Cleaned Meter [facility] Comment on above: Result Comment: PERF ORMED BY: [address] [place] [address] PATHOLOGIST EMAIL PRODUCER FARRAH PAUL M.D. Performed By: #### G LULS #### Point of Care testing , Glucose [Mass/Vol] 125 mg/dL Normal [facility] Comment on above: Result Comment: [place] om Glucose Reference Range is dependent on time and content of last meal. Glucose of more than 200 mg/dL in a nonstressed, ambulatory subject supports the diagnosis of Diabetes Mellitus. Performed By: #### G LULS #### Point of Care testing , Aerobic Cultureon 02-10-2023 Aerobic Culture Comment deep wound c ulture ORGANISM: Strep dysgalactiae (O:STRDYS) Comments Organism Not Routinely Tested for Susceptibilities Quantity of Growth Light Growth ORGANISM: Enterococcus faecalis (O:ENTFAC) Quantity of Growth Light Growth Comment deep wound culture No Anaerobes Isolated 3 Days Comment deep wound culture Gram Stain Result 1+ White Blood Cells Rare Gram Positive Cocci Aerobic RENAN Charge (PCMIC38) SUSCEPTIBILITY ORGANISM: O:ENTFAC ANTIBIOTIC INTERPRETATION RENAN Ampicillin S <2 Daptomycin S 2 Linezolid S 2 Penicillin S 2 Vancomycin S 1 S = SUSCEPTIBLE I = INTERMEDIATE R = RESISTANT BLANK = DATA NOT AVAILABLE, OR DRUG NOT ADVISABLE OR TESTED R* = RESISTANCE DUE TO EXTENDED SPECTRUM BETA-LACTAMASES ESBL = EXTENDED SPECTRUM BETA-LACTAMASE TFG = THYMIDINE-DEPENDENT STRAIN MAGDALENE = BETA-LACTAMASE POSITIVE IB = INDUCIBLE BETA-LACTAMASE. APPEARS IN PLACE OF 'S' WITH SPECIES KNOWN TO POSSESS INDUCIBLE BETA-LACTAMASES. POTENTIALLY THEY MAY BECOME RESISTANT TO ALL B-LACTAM DRUGS. PERFORMED BY: [place] [address] [place] [address] PATHOLOGIST EMAIL PRODUCER FARRAH PAUL M.D. Normal [facility] Comment on above: Performed By: #### G MAURICIOLS #### Point of Care testing , Basic Metabolic Panelon 01-27 Anion gap [Moles/Vol] 10.1 mmol/L Normal 6.0-15.0 [facility] Comment on above: Performed By: #### G LULS #### Point of Care testing , Calcium [Mass/Vol] 8.1 mg/dL Low 8.6-10.3 [facility] Comment on above: Performed By: #### G MAURICIOLS #### Point of Care testing , Chloride [Moles/Vol] 106 mmol/L Normal 98-107 [facility] Comment on above: Performed By: #### G LULS #### Point of Care testing , CO2 [Moles/Vol] 25.3 mmol/L Normal 21.0-31.0 [facility] Comment on above: Performed By: #### G LULS #### Point of Care testing , Creatinine [Mass/Vol] 1.21 mg/dL Normal 0.70-1.30 [facility] Comment on above: Performed By: #### G LULS #### Point of Care testing , Creatinine Clr Calc Pharmacy 80.32 Normal [facility] Comment on above: Result Comment: PERF ORMED BY: [facility] [address] [place] [address] PATHOLOGIST EMAIL PRODUCER FARRAH PAUL M.D. Performed By: #### G LULS #### Point of Care testing , GFR/1.73 sq M.predicted MDRD (S/P/Bld) [Vol rate/Area] mL/min/{1.73_m2} Normal [facility] Comment on above: Performed By: #### G LULS #### Point of Care testing , Glucose [Mass/Vol] 109 mg/dL High 70-100 [facility] Comment on above: Result Comment: [facility] Glucose Reference Range is dependent on time and content of last meal. Glucose of more than 200 mg/dL in a nonstressed, ambulatory subject supports the diagnosis of Diabetes Mellitus. ADA recommended reference range Performed By: #### G LULS #### Point of Care testing , Potassium [Moles/Vol] 4.4 mmol/L Normal 3.5-5.1 [facility] Comment on above: Performed By: #### G LULS #### Point of Care testing , Sodium [Moles/Vol] 137 mmol/L Normal 136-145 [facility] Comment on above: Performed By: #### G LULS #### Point of Care testing , Urea nitrogen [Mass/Vol] 20 mg/dL Normal 7-25 [facility] Comment on above: Performed By: #### G LULS #### Point of Care testing , Coagulation Profileon 2022 aPTT Coag (Bld) [Time] 30.4 s Normal 25.1-36.5 [facility] Comment on above: Result Comment: A he matocrit value greater than 55% may lead to inaccurate results in coagulation testing. Patients having hematocrit values >55% require a special collection tube for coagulation studies. Please contact the laboratory at [phone] for redraw instructions. PERFORMED BY: [facility] [address] [place] [address] PATHOLOGIST EMAIL PRODUCER FARRAH PAUL M.D. Performed By: #### G LULS #### Point of Care testing , INR Coag (PPP) [Relative time] 1.2 {INR} Normal [facility] Comment on above: Result Comment: INR Therapeutic Range A) Pre- and Peroperative OAT started two weeks before surgery. NOT HIP SURGERY: 1.5 - 2.5 HIP SURGERY: 2 - 3 B) Primary and secondary prevention of venous THROMBOSIS: 2 - 3 C) Active venous thrombosis, pulmonary embolism and prevention of recurrent venous thrombosis: 2 - 3 D) Prevention of arterial thromboembolism including patients with mechanical heart valves: 3 - 4.5 Performed By: #### G LULS #### Point of Care testing , PT Coag (PPP) [Time] 14.0 s High 9.0-12.9 [facility] Comment on above: Result Comment: A he matocrit value greater than 55% may lead to inaccurate results in coagulation testing. Patients having hematocrit values >55% require a special collection tube for coagulation studies. Please contact the laboratory at [phone] for redraw instructions. Performed By: #### G LULS #### Point of Care testing , Complete Blood Count Auto Di ffon 02-10-2023 Basophils (Bld) [#/Vol] 0.0 10*3/uL Normal 0.0-0.2 [facility] Comment on above: Result Comment: PERF ORMED BY: [facility] [address] [place] [address] PATHOLOGIST EMAIL PRODUCER FARRAH PAUL M.D. Performed By: #### G LULS #### Point of Care testing , Basophils/100 WBC (Bld) 0.3 % Normal . [facility] Comment on above: Performed By: #### G MAURICIOLS #### Point of Care testing , Eosinophils (Bld) [#/Vol] 0.8 10*3/uL High 0.0-0.45 [facility] Comment on above: Performed By: #### G MAURICIOLS #### Point of Care testing , Eosinophils/100 WBC (Bld) 7.1 % Normal . [facility] Comment on above: Performed By: #### G MAURICIOLS #### Point of Care testing , Erythrocyte distribution width (RBC) [Ratio] 15.2 % High 12.0-14.8 [facility] Comment on above: Performed By: #### G BHARATI #### Point of Care testing , Hematocrit (Bld) [Volume fraction] 24.8 % Low 38.8-50.0 [facility] Comment on above: Performed By: #### G MAURICIOLS #### Point of Care testing , Hemoglobin (Bld) [Mass/Vol] 8.2 g/dL Low 13.0-17.0 [facility] Comment on above: Performed By: #### G BHARATI #### Point of Care testing , Lymphocytes (Bld) [#/Vol] 1.5 10*3/uL Normal 1.00-4.8 [facility] Comment on above: Performed By: #### G BHARATI #### Point of Care testing , Lymphocytes/100 WBC (Bld) 13.9 % Normal . [facility] Comment on above: Performed By: #### Eros CALABRESE #### Point of Care testing , MCH (RBC) [Entitic mass] 25.7 pg Low 27.5-35.2 [facility] Comment on above: Performed By: #### G BHARATI #### Point of Care testing , MCV (RBC) [Entitic vol] 78.1 fL Low 83.5-101 [facility] Comment on above: Performed By: #### G BHARATI #### Point of Care testing , Mean Corpuscular HGB Conc 32.9 g/dL Normal 32.5-35.6 [facility] Comment on above: Performed By: #### Eros CALABRESE #### Point of Care testing , Monocytes (Bld) [#/Vol] 0.9 10*3/uL High 0.0-0.8 [facility] Comment on above: Performed By: #### Eros CALABRESE #### Point of Care testing , Monocytes/100 WBC (Bld) 8.3 % Normal . [facility] Comment on above: Performed By: #### Eros CALABRESE #### Point of Care testing , Neutrophils (Bld) [#/Vol] 7.5 10*3/uL Normal 1.8-7.7 [facility] Comment on above: Performed By: #### Eros CALABRESE #### Point of Care testing , Neutrophils/100 WBC (Bld) 70.4 % Normal . [facility] Comment on above: Performed By: #### Eros CALABRESE #### Point of Care testing , NRBC% 0.1 /100{WBC} Normal 0-0.5 [facility] Comment on above: Performed By: #### Eros CALABRESE #### Point of Care testing , Platelet mean volume (Bld) [Entitic vol] 6.3 fL Low 6.6-10.1 [facility] Comment on above: Performed By: #### Eros CALABRESE #### Point of Care testing , Platelets (Bld) [#/Vol] 318 10*3/uL Normal 150-450 [facility] Comment on above: Performed By: #### Eros CALABRESE #### Point of Care testing , RBC (Bld) [#/Vol] 3.18 10*6/uL Low 3.90-5.60 [facility] Comment on above: Performed By: #### Eros CALABRESE #### Point of Care testing , WBC (Bld) [#/Vol] 10.7 10*3/uL High 4.1-10.5 [facility] Comment on above: Performed By: #### Eros CALABRESE #### Point of Care testing , ECG 12 lead ECG 02-10-[address] [facility] [place] [address] [place] [address] Electrocardiograph Report Signed Patient: Ganga Stinson MR#: [id number] : 1960 Acct:[id number] Age/Sex: 62 / M ADM Date: 02/06/23 Loc: Room: [address] [place] [address] Type: ADM IN Attending Dr: Suzy Douglas MD Ordering Provider: Freddy Billings DO Date of Service: 02/10/23 ECG/ECG 12 lead ECG: preop Copies to: Test Reason : Blood Pressure : / mmHG Vent. Rate : 055 BPM Atrial Rate : 055 BPM P-R Int : 166 ms QRS Dur : 092 ms QT Int : 458 ms P-R-T Axes : 040 018 034 degrees QTc Int : 438 ms Sinus bradycardia Otherwise normal ECG When compared with ECG of 04-SEP-2021 09:25, No significant change was found Confirmed by DOMENICA NAZARIO [id number] on 02/10/2023 12:17:27 PM Referred By: Electronically Signed By:PARVIN PASCUAL MD [facility] Transcribed By: MUS Signed By Rafi Pascual MD 02/10/23 1217 [facility] Glucose Poct Glucometerson 1 04-12-2022 Glucose [Mass/Vol] 83 mg/dL [facility] Comment on above: Result Comment: [place] Glucose Reference Range is dependent on time and content of last meal. Glucose of more than 200 mg/dL in a nonstressed, ambulatory subject supports the diagnosis of Diabetes Mellitus. PERFORMED BY: [address] [place] [address] PATHOLOGIST EMAIL PRODUCER FARRAH PAUL M.D. Performed By: #### G LULS #### Point of Care testing , Commemt1 Glu2: [facility] Comment on above: Result Comment: PERF ORMED BY: [facility] [address] [place] [address] PATHOLOGIST EMAIL PRODUCER FARRAH PAUL M.D. Performed By: #### G LULS #### Point of Care testing , Glucose [Mass/Vol] 79 mg/dL Normal [facility] Comment on above: Result Comment: [place] [facility] Glucose Reference Range is dependent on time and content of last meal. Glucose of more than 200 mg/dL in a nonstressed, ambulatory subject supports the diagnosis of Diabetes Mellitus. Performed By: #### G LULS #### Point of Care testing , Glucose [Mass/Vol] 82 mg/dL Normal [facility] Comment on above: Result Comment: [place] [facility] Glucose Reference Range is dependent on time and content of last meal. Glucose of more than 200 mg/dL in a nonstressed, ambulatory subject supports the diagnosis of Diabetes Mellitus. PERFORMED BY: [address] [place] [id number] PATHOLOGIST EMAIL PRODUCER FARRAH PAUL M.D. Performed By: #### G LULS #### Point of Care testing , Glucose [Mass/Vol] 98 mg/dL Normal [facility] Comment on above: Result Comment: [place] Glucose Reference Range is dependent on time and content of last meal. Glucose of more than 200 mg/dL in a nonstressed, ambulatory subject supports the diagnosis of Diabetes Mellitus. PERFORMED BY: [address] [place] [address] PATHOLOGIST EMAIL PRODUCER FARRAH PAUL M.D. Performed By: #### G LULS #### Point of Care testing , Glucose [Mass/Vol] 119 mg/dL Normal [facility] Comment on above: Result Comment: [facility] Glucose Reference Range is dependent on time and content of last meal. Glucose of more than 200 mg/dL in a nonstressed, ambulatory subject supports the diagnosis of Diabetes Mellitus. PERFORMED BY: [facility] [address] [address] PATHOLOGIST EMAIL PRODUCER FARRAH PAUL M.D. Performed By: #### G LULS #### Point of Care testing , Gram Stainon 02-10-2023 Microscopic observation Gram stain Nom (Unsp spec) Comment deep wound culture Gram Stain Result 1+ White Blood Cells Rare Gram Positive Cocci PERFORMED BY: [facility] [address] [place] [address] PATHOLOGIST EMAIL PRODUCER FARRAH PAUL M.D. [facility] Comment on above: Performed By: #### G BHARATI #### Point of Care testing , Martín 02-10-2023 L ------- Specimen: [id number] Received: 02/11/23 Status: ROSIO Hermosillochristofer Num: [id number] Spec Type: Surgical Subm Dr: Jonathan Moffett DPM Tissues: A DIGIT AMPUTATION (LT 4TH/5TH TOE/NEC TISSUE) Procedures: HE/2, Gross/Micro L4, Decalcification Age/ Patient Sex Location Account Attending Physician Ganga Stinson/Sam [id number] Suzy Douglas MD SPEC NUM: [id number] RECD: 02/11/23 STATUS: ROSIO RAJPUT NUM: [id number] NAYLA: 02/10/23- SUBM DR: Jonathan Moffett DPM ENTERED: 02/11/[address]: AMARILIS TYPE: Surgical DEPT: S ORDERED: HE/2, Gross/Micro L4, Decalcification ORDERED: HE/2, Gross/Micro L4, Decalcification Pathological Diagnosis Toes, left fourth/fifth, transmetatarsal amputation: - Ulceration, necrosis and severe acute inflammation - Resection margin of bone is viable Clinical Information Left leg cellulitis, osteomyelitis, diabetic foot ulcer Gross Description The specimen is received in formalin labeled with the patient's name designated left fourth/fifth toe and consists of a 9.2 x 4.2 x 3.0 cm left partial transmetatarsal amputation of digits four and five which have attached pardo-white irregular ungues. The soft and bony resection margins appears viable. The resection margins of metatarsals four and five show pardo-yellow trabecular bone and fatty marrow without evidence of softening. The skin overlying the digits is pardo-white, wrinkled, and focally sloughing without identifiable lesions. The cut surfaces of the metatarsals show pardo-yellow, trabecular bone and fatty marrow without evidence of softening. Received in the same container are three portions of osborne-brown to pardo-white, irregular, soft tissue aggregating to 4.8 x 2.4 x 1.2 cm. The cut surfaces of the soft tissue fragments show pardo-white to black-brown, heterogeneous, diffluent, soft tissue. Production Illustrator sections are submitted in two cassettes labeled as follows: A1 resection margins of left metatarsals four and five, en face, following fixation and decalcification, A2 event sales representative sections of possible gangrenous soft tissue. Specimen: [id number] Received: 02/11/23 Status: ROSIO Rajput Num: [id number] Spec Type: Surgical Subm Dr: Jonathan Moffett DPM Tissues: A DIGIT AMPUTATION (LT 4TH/5TH TOE/NEC TISSUE) Procedures: HE/2, Gross/Micro L4, Decalcification Patient: Ganga Stinson Cristina [id number] (Continued) Specimen: [id number] Received: 02/11/23 (Continued) Signed (signature on file) Parag Buenrostro MD 02/12/23 1144 Specimen: [id number] Received: 02/11/23 Status: ROSIO Rajput Num: [id number] Spec Type: Surgical Subm Dr: ZANDER Lowe Tissues: A DIGIT AMPUTATION (LT 4TH/5TH TOE/NEC TISSUE) Procedures: HE/2, Gross/Micro L4, Decalcification Patient: Ganga Stinson [id number] (Continued) Specimen: [id number] Received: 02/11/23 (Continued) CPT Codes 47005 Specimen: [id number] Received: 02/11/23 Status: ROSIO Rajput Num: [id number] Spec Type: Surgical Subm Dr: Jonathan Moffett DPM Tissues: A DIGIT AMPUTATION (LT 4TH/5TH TOE/NEC TISSUE) Procedures: HE/2, Gross/Micro L4, Decalcification Patient: Ganga Stinson [id number] (Continued) Signed (signature on file) Parag Buenrostro MD 02/12/23 1144 [facility] LeukoReduced RBCon 3 LeukoReduced RBC TRANSFUSED 02/10/23 1339 [facility] Type and Screenon 02-10-2023 ABO and Rh group Nom (Bld) Blood group A Rh(D) negative [facility] Comment on above: Order Comment: Trans fuse now? Y Number of units to transfuse now? 1 Result Comment: PERF ORMED BY: [address] [address] PATHOLOGIST EMAIL PRODUCER FARRAH PAUL M.D. XR foot LT 2Von 02-10-2023 XR foot LT [address] [facility] [place] [address] [place] [address] XRay Report Signed Patient: Ganga Stinson MR#: [id number] : 1960 Acct:[id number] Age/Sex: 62 / M ADM Date: 02/06/23 Loc: Room: [address] [place] [address] Type: ADM IN Attending Dr: Suzy Douglas MD Copies to: CRISTIANA Lowe MD Ordering Provider: Jonathan Moffett DPM Date of Service: 02/10/23 XR/XR foot LT 2V: left amputation 4/5 metatarsals XR foot LT 2V 02/10/2023 7:13 PM SIGNS AND SYMPTOMS: left amputation 4/5 metatarsals PROTOCOL: Frontal and lateral radiographs of the left foot COMPARISON: 02/06/2023 FINDINGS: 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 There is diffuse soft tissue swelling with subcutaneous emphysema consistent with the immediate postoperative state. There is no fracture or dislocation. Plantar surface calcaneal spurring is noted. Vascular calcifications are present in the soft tissues. XR/XR foot LT 2V IMPRESSION: 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 There is diffuse soft tissue swelling with subcutaneous emphysema consistent with the immediate postoperative state. Impression dictated by: Canelo Red M.D.02/10/2023 9:36 PM Dictation Location: [place] [address] Transcribed By: [facility] 02/10/232135 Dictated By: Canelo Red II, MD 02/10/232133 Signed By: 02/10/232135 Normal [facility] Basic Metabolic Panelon 01-27 Anion gap [Moles/Vol] 8.5 mmol/L Normal 6.0-15.0 [facility] Comment on above: Performed By: #### G BHARATI #### Point of Care testing , Calcium [Mass/Vol] 7.9 mg/dL Low 8.6-10.3 [facility] Comment on above: Performed By: #### G BHARATI #### Point of Care testing , Chloride [Moles/Vol] 106 mmol/L Normal 98-107 [facility] Comment on above: Performed By: #### G MAURICIOLS #### Point of Care testing , CO2 [Moles/Vol] 24.9 mmol/L Normal 21.0-31.0 [facility] Comment on above: Performed By: #### G BHARATI #### Point of Care testing , Creatinine [Mass/Vol] 1.20 mg/dL Normal 0.70-1.30 [facility] Comment on above: Performed By: #### G LULS #### Point of Care testing , Creatinine Clr Calc Pharmacy 82.31 Normal [facility] Comment on above: Result Comment: PERF ORMED BY: [facility] [address] [place] [address] PATHOLOGIST EMAIL PRODUCER FARRAH PAUL M.D. Performed By: #### G LULS #### Point of Care testing , GFR/1.73 sq M.predicted MDRD (S/P/Bld) [Vol rate/Area] mL/min/{1.73_m2} Normal [facility] Comment on above: Performed By: #### G LULS #### Point of Care testing , Glucose [Mass/Vol] 181 mg/dL High 70-100 [facility] Comment on above: Result Comment: [facility] Glucose Reference Range is dependent on time and content of last meal. Glucose of more than 200 mg/dL in a nonstressed, ambulatory subject supports the diagnosis of Diabetes Mellitus. ADA recommended reference range Performed By: #### G LULS #### Point of Care testing , Potassium [Moles/Vol] 4.4 mmol/L Normal 3.5-5.1 [facility] Comment on above: Performed By: #### G LULS #### Point of Care testing , Sodium [Moles/Vol] 135 mmol/L Low 136-145 [facility] Comment on above: Performed By: #### G LULS #### Point of Care testing , Urea nitrogen [Mass/Vol] 18 mg/dL Normal 7-25 [facility] Comment on above: Performed By: #### G LULS #### Point of Care testing , Complete Blood Count Auto Di ffon 02-09-2023 Basophils (Bld) [#/Vol] 0.1 10*3/uL Normal 0.0-0.2 [facility] Comment on above: Result Comment: PERF ORMED BY: [facility] [address] [place] [address] PATHOLOGIST EMAIL PRODUCER FARRAH PAUL M.D. Performed By: #### G LULS #### Point of Care testing , Basophils/100 WBC (Bld) 1.1 % Normal . [facility] Comment on above: Performed By: #### G BHARATI #### Point of Care testing , Eosinophils (Bld) [#/Vol] 0.6 10*3/uL High 0.0-0.45 [facility] Comment on above: Performed By: #### G MAURICIOLS #### Point of Care testing , Eosinophils/100 WBC (Bld) 5.6 % Normal . [facility] Comment on above: Performed By: #### G MAURICIOLS #### Point of Care testing , Erythrocyte distribution width (RBC) [Ratio] 15.0 % High 12.0-14.8 [facility] Comment on above: Performed By: #### G MAURICIOLS #### Point of Care testing , Hematocrit (Bld) [Volume fraction] 24.1 % Low 38.8-50.0 [facility] Comment on above: Performed By: #### G MAURICIOLS #### Point of Care testing , Hemoglobin (Bld) [Mass/Vol] 7.8 g/dL Low 13.0-17.0 [facility] Comment on above: Performed By: #### G BHARATI #### Point of Care testing , Lymphocytes (Bld) [#/Vol] 1.3 10*3/uL Normal 1.00-4.8 [facility] Comment on above: Performed By: #### G MAURICIOLS #### Point of Care testing , Lymphocytes/100 WBC (Bld) 11.7 % Normal . [facility] Comment on above: Performed By: #### G MAURICIOLS #### Point of Care testing , MCH (RBC) [Entitic mass] 25.6 pg Low 27.5-35.2 [facility] Comment on above: Performed By: #### G MAURICIOLS #### Point of Care testing , MCV (RBC) [Entitic vol] 78.8 fL Low 83.5-101 [facility] Comment on above: Performed By: #### G MAURICIOLS #### Point of Care testing , Mean Corpuscular HGB Conc 32.5 g/dL Normal 32.5-35.6 [facility] Comment on above: Performed By: #### G BHARATI #### Point of Care testing , Monocytes (Bld) [#/Vol] 0.7 10*3/uL Normal 0.0-0.8 [facility] Comment on above: Performed By: #### Eros CALABRESE #### Point of Care testing , Monocytes/100 WBC (Bld) 6.5 % Normal . [facility] Comment on above: Performed By: #### Eros MARTÍNEZLS #### Point of Care testing , Neutrophils (Bld) [#/Vol] 8.1 10*3/uL High 1.8-7.7 [facility] Comment on above: Performed By: #### Eros CALABRESE #### Point of Care testing , Neutrophils/100 WBC (Bld) 75.1 % Normal . [facility] Comment on above: Performed By: #### Eros CALABRESE #### Point of Care testing , NRBC% 0.0 /100{WBC} Normal 0-0.5 [facility] Comment on above: Performed By: #### Eros CALABRESE #### Point of Care testing , Platelet mean volume (Bld) [Entitic vol] 6.3 fL Low 6.6-10.1 [facility] Comment on above: Performed By: #### Eros CALABRESE #### Point of Care testing , Platelets (Bld) [#/Vol] 311 10*3/uL Normal 150-450 [facility] Comment on above: Performed By: #### Eros CALABRESE #### Point of Care testing , RBC (Bld) [#/Vol] 3.05 10*6/uL Low 3.90-5.60 [facility] Comment on above: Performed By: #### Eros CALABRESE #### Point of Care testing , WBC (Bld) [#/Vol] 10.8 10*3/uL High 4.1-10.5 [facility] Comment on above: Performed By: #### Eros CALABRESE #### Point of Care testing , Glucose Poct Glucometerson 1 04-11-2022 Glucose [Mass/Vol] 254 mg/dL Normal [facility] Comment on above: Result Comment: [place] [facility] Glucose Reference Range is dependent on time and content of last meal. Glucose of more than 200 mg/dL in a nonstressed, ambulatory subject supports the diagnosis of Diabetes Mellitus. PERFORMED BY: [address] [place] [address] PATHOLOGIST EMAIL PRODUCER FARRAH PAUL M.D. Performed By: #### G LULS #### Point of Care testing , Glucose [Mass/Vol] 224 mg/dL Normal [facility] Comment on above: Result Comment: [place] om Glucose Reference Range is dependent on time and content of last meal. Glucose of more than 200 mg/dL in a nonstressed, ambulatory subject supports the diagnosis of Diabetes Mellitus. PERFORMED BY: [address] [place] [address] PATHOLOGIST EMAIL PRODUCER FARRAH PAUL M.D. Performed By: #### G LULS #### Point of Care testing , Glucose [Mass/Vol] 184 mg/dL Normal [facility] Comment on above: Result Comment: [place] om Glucose Reference Range is dependent on time and content of last meal. Glucose of more than 200 mg/dL in a nonstressed, ambulatory subject supports the diagnosis of Diabetes Mellitus. PERFORMED BY: [address] [place] [address] PATHOLOGIST EMAIL PRODUCER FARRAH PAUL M.D. Performed By: #### G LULS #### Point of Care testing , Glucose [Mass/Vol] 159 mg/dL Normal [facility] Comment on above: Result Comment: [place] Glucose Reference Range is dependent on time and content of last meal. Glucose of more than 200 mg/dL in a nonstressed, ambulatory subject supports the diagnosis of Diabetes Mellitus. PERFORMED BY: [address] [place] [address] PATHOLOGIST EMAIL PRODUCER FARRAH PAUL M.D. Performed By: #### G LULS #### Point of Care testing , Hemoglobin and Hematocriton 02-09-2023 Hematocrit (Bld) [Volume fraction] 25.1 % Low 38.8-50.0 [facility] Comment on above: Result Comment: PERF ORMED BY: [address] [address] PATHOLOGIST EMAIL PRODUCER FARRAH PAUL M.D. Performed By: #### G LULS #### Point of Care testing , Hemoglobin (Bld) [Mass/Vol] 8.2 g/dL Low 13.0-17.0 [facility] Comment on above: Performed By: #### G LULS #### Point of Care testing , US arterial pvr rest Brennen US arterial pvr rest LE [facility] Main [address] [address] Ultrasound Report Signed Patient: Ganga Stinson MR#: [id number] : 1960 Acct:[id number] Age/Sex: 62 / M ADM Date: 02/06/23 Loc: Room: [address] [place] [address] Type: ADM IN Attending Dr: Suzy Douglas MD Ordering Provider: Jonathan Moffett DPM Date of Service: 02/08/23 US/US arterial pvr rest LE: pvd/left foot OM/sx indicated Copies to: CRISTIANA Lowe MD LOWER EXTREMITY SEGMENTAL ARTERIAL DOPSCAN (PVR) INDICATION: Chronic wounds in the lower extremities. PROCEDURE: Right arm blood pressure is 142 , left is 135 . Pressures throughout the right leg are 190 at the low thigh, 190 at the calf, cno at the ankle using the posterior tibial artery and cno at the ankle using the dorsalis pedis artery with ankle-brachial index of -NC- -NC- . Pressures throughout the left leg are 145 at the calf, 153 at the ankle using the posterior tibial artery and 144 at the ankle using the dorsalis pedis artery with ankle-brachial index of 1.01 1.08 . Wave forms by plethysmography are normal in the right lower extremity and biphasic in the left lower extremity. 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 THE PATIENT IS MOST LIKELY TO HAVE diffuse DISEASE OF THE LEFT LOWER EXTREMITY. Impression dictated by: Jesusita Navarro MD02/09/2023 12:18 PM Dictation Location: [place] [address] Tech: Coni Saenz Transcribed By: MARYANN 02/09/231217 Dictated By: Jesusita Navarro MD 02/09/231216 Signed By: 02/09/231217 [facility] Basic Metabolic Panelon 01-27 Anion gap [Moles/Vol] 11.3 mmol/L Normal 6.0-15.0 [facility] Comment on above: Performed By: #### G MAURICIOLS #### Point of Care testing , Calcium [Mass/Vol] 8.3 mg/dL Low 8.6-10.3 [facility] Comment on above: Performed By: #### G MAURICIOLS #### Point of Care testing , Chloride [Moles/Vol] 110 mmol/L High 98-107 [facility] Comment on above: Performed By: #### G MAURICIOLS #### Point of Care testing , CO2 [Moles/Vol] 21.0 mmol/L Normal 21.0-31.0 [facility] Comment on above: Performed By: #### G MAURICIOLS #### Point of Care testing , Creatinine [Mass/Vol] 1.24 mg/dL Normal 0.70-1.30 [facility] Comment on above: Performed By: #### G LULS #### Point of Care testing , Creatinine Clr Calc Pharmacy 79.62 [facility] Comment on above: Performed By: #### G LULS #### Point of Care testing , GFR/1.73 sq M.predicted MDRD (S/P/Bld) [Vol rate/Area] mL/min/{1.73_m2} [facility] Comment on above: Performed By: #### G LULS #### Point of Care testing , Glucose [Mass/Vol] 86 mg/dL Normal 70-100 [facility] Comment on above: Result Comment: [place] Glucose Reference Range is dependent on time and content of last meal. Glucose of more than 200 mg/dL in a nonstressed, ambulatory subject supports the diagnosis of Diabetes Mellitus. ADA recommended reference range Performed By: #### G LULS #### Point of Care testing , Potassium [Moles/Vol] 4.3 mmol/L Normal 3.5-5.1 [facility] Comment on above: Performed By: #### G LULS #### Point of Care testing , Sodium [Moles/Vol] 138 mmol/L Normal 136-145 [facility] Comment on above: Performed By: #### G LULS #### Point of Care testing , Urea nitrogen [Mass/Vol] 21 mg/dL Normal 7-25 [facility] Comment on above: Performed By: #### G LULS #### Point of Care testing , Complete Blood Count Auto Di ffon 02-08-2023 Basophils (Bld) [#/Vol] 0.0 10*3/uL Normal 0.0-0.2 [facility] Comment on above: Result Comment: PERF ORMED BY: [facility] [address] [place] [address] PATHOLOGIST EMAIL PRODUCER FARRAH PAUL M.D. Performed By: #### G LULS #### Point of Care testing , Basophils/100 WBC (Bld) 0.4 % Normal . [facility] Comment on above: Performed By: #### G MAURICIOLS #### Point of Care testing , Eosinophils (Bld) [#/Vol] 0.6 10*3/uL High 0.0-0.45 [facility] Comment on above: Performed By: #### G MAURICIOLS #### Point of Care testing , Eosinophils/100 WBC (Bld) 5.8 % Normal . [facility] Comment on above: Performed By: #### G MAURICIOLS #### Point of Care testing , Erythrocyte distribution width (RBC) [Ratio] 15.2 % High 12.0-14.8 [facility] Comment on above: Performed By: #### G LULS #### Point of Care testing , Hematocrit (Bld) [Volume fraction] 25.0 % Low 38.8-50.0 [facility] Comment on above: Performed By: #### G MAURICIOLS #### Point of Care testing , Hemoglobin (Bld) [Mass/Vol] 8.1 g/dL Low 13.0-17.0 [facility] Comment on above: Performed By: #### G MAURICIOLS #### Point of Care testing , Lymphocytes (Bld) [#/Vol] 1.5 10*3/uL Normal 1.00-4.8 [facility] Comment on above: Performed By: #### G MAURICIOLS #### Point of Care testing , Lymphocytes/100 WBC (Bld) 14.3 % Normal . [facility] Comment on above: Performed By: #### Eros CALABRESE #### Point of Care testing , MCH (RBC) [Entitic mass] 25.5 pg Low 27.5-35.2 [facility] Comment on above: Performed By: #### Eros MARTÍNEZLS #### Point of Care testing , MCV (RBC) [Entitic vol] 78.6 fL Low 83.5-101 [facility] Comment on above: Performed By: #### Eros MARTÍNEZLS #### Point of Care testing , Mean Corpuscular HGB Conc 32.5 g/dL Normal 32.5-35.6 [facility] Comment on above: Performed By: #### Eros CALABRESE #### Point of Care testing , Monocytes (Bld) [#/Vol] 0.9 10*3/uL High 0.0-0.8 [facility] Comment on above: Performed By: #### Eros MARTÍNEZLS #### Point of Care testing , Monocytes/100 WBC (Bld) 9.0 % Normal . [facility] Comment on above: Performed By: #### Eros CALABRESE #### Point of Care testing , Neutrophils (Bld) [#/Vol] 7.3 10*3/uL Normal 1.8-7.7 [facility] Comment on above: Performed By: #### G MAURICIOLS #### Point of Care testing , Neutrophils/100 WBC (Bld) 70.5 % Normal . [facility] Comment on above: Performed By: #### Eros MARTÍNEZLS #### Point of Care testing , NRBC% 0.0 /100{WBC} Normal 0-0.5 [facility] Comment on above: Performed By: #### G LULS #### Point of Care testing , Platelet mean volume (Bld) [Entitic vol] 6.5 fL Low 6.6-10.1 [facility] Comment on above: Performed By: #### G LULS #### Point of Care testing , Platelets (Bld) [#/Vol] 308 10*3/uL Normal 150-450 [facility] Comment on above: Performed By: #### G LULS #### Point of Care testing , RBC (Bld) [#/Vol] 3.18 10*6/uL Low 3.90-5.60 [facility] Comment on above: Performed By: #### G LULS #### Point of Care testing , WBC (Bld) [#/Vol] 10.4 10*3/uL Normal 4.1-10.5 [facility] Comment on above: Performed By: #### G LULS #### Point of Care testing , Glucose Poct Glucometerson 04-10-2022 Glucose [Mass/Vol] 202 mg/dL Normal [facility] Comment on above: Result Comment: [facility] Glucose Reference Range is dependent on time and content of last meal. Glucose of more than 200 mg/dL in a nonstressed, ambulatory subject supports the diagnosis of Diabetes Mellitus. PERFORMED BY: [address] [place] [id number] PATHOLOGIST EMAIL PRODUCER FARRAH PAUL M.D. Performed By: #### G LULS #### Point of Care testing , Glucose [Mass/Vol] 192 mg/dL Normal [facility] Comment on above: Result Comment: [facility] Glucose Reference Range is dependent on time and content of last meal. Glucose of more than 200 mg/dL in a nonstressed, ambulatory subject supports the diagnosis of Diabetes Mellitus. PERFORMED BY: [facility] [address] [place] [address] PATHOLOGIST EMAIL PRODUCER FARRAH PAUL M.D. Performed By: #### G LULS #### Point of Care testing , Commemt1 Glu2: [facility] Comment on above: Result Comment: PERF ORMED BY: [place] [address] PATHOLOGIST EMAIL PRODUCER FARRAH PAUL M.D. Performed By: #### G LULS #### Point of Care testing , Glucose [Mass/Vol] 184 mg/dL Normal [facility] Comment on above: Result Comment: [place] om Glucose Reference Range is dependent on time and content of last meal. Glucose of more than 200 mg/dL in a nonstressed, ambulatory subject supports the diagnosis of Diabetes Mellitus. Performed By: #### G LULS #### Point of Care testing , Commemt1 Glu2: [facility] Comment on above: Result Comment: PERF ORMED BY: [place] [address] PATHOLOGIST EMAIL PRODUCER FARRAH PAUL M.D. Performed By: #### G LULS #### Point of Care testing , Glucose [Mass/Vol] 95 mg/dL Normal [facility] Comment on above: Result Comment: [place] om Glucose Reference Range is dependent on time and content of last meal. Glucose of more than 200 mg/dL in a nonstressed, ambulatory subject supports the diagnosis of Diabetes Mellitus. Performed By: #### G LULS #### Point of Care testing , MR foot LT wo sury 02-09-20 MR foot LT wo con [facility] Main [place] [id number] MRI Report Signed Patient: Ganga Stinson MR#: [id number] : 1960 Acct:[id number] Age/Sex: 62 / M ADM Date: 02/06/23 Loc: Room: [address] [place] [address] Type: ADM IN Attending Dr: Suzy Douglas MD Copies to: CRISTIANA Lowe MD Ordering Provider: Jonathan Moffett DPM Date of Service: 02/08/23 MR/MR foot LT wo con: left 5th mpj ulcer/OM/dm MR foot LT wo con 02/07/2023 10:24 AM SIGNS AND SYMPTOMS: left 5th mpj ulcer/OM/dm PROTOCOL: Multiplanar multisequence MR images of the left foot were obtained without IV contrast COMPARISON: 02/06/2023. FINDINGS: Lisfranc ligament: Intact. Hallux: Osseous: Normal. Extensor tendon: Normal. Flexor tendon: Normal. First metatarsophalangeal joint: Normal. Hallux-sesamoid complex: Intact. Second ray: Osseous: Normal. Extensor tendon: Normal. Flexor tendon: Normal. Second metatarsophalangeal joint: Normal. Plantar plate: Normal. Third ray: Osseous: Normal. Extensor tendon: Normal. Flexor tendon: Normal. Third metatarsophalangeal joint: Normal. Plantar plate: Normal. Fourth ray: Osseous: There is edema in the distal shaft and head of the fourth metatarsal extending into the fourth metatarsophalangeal joint. Extensor tendon: Normal. Flexor tendon: Normal. Fourth metatarsophalangeal joint: Otherwise normal. Plantar plate: Normal. Fifth ray: Osseous: There is cortical destruction with accompanying edema within the shaft and head of the fifth metatarsal and base of the fifth proximal phalanx traversing the fifth metatarsophalangeal joint space. Extensor tendon: Normal. Flexor tendon: Normal. Fifth metatarsophalangeal joint: As above. Plantar plate: Normal. Interspaces: Interdigital (Montemayor) neuroma: None. Intermetatarsal bursitis: None. Soft tissues: There are focal areas of susceptibility in the subcutaneous soft tissues along the plantar aspect of the fifth metatarsal and metatarsophalangeal joint consistent with a history of soft tissue ulceration. There is diffuse soft tissue edema without evidence of bowel defined fluid collection to suggest abscess formation.. There is a 4.9 x 1.5 x 1.5 cm heterogeneous T2 hyperintense focus along the lateral soft tissues of the fifth metatarsal which may represent a small abscess. This appears to communicate with the skin surface of the lateral aspect of the foot along the distal shaft of the fifth metatarsal. Muscles: There is diffuse edema suggesting myositis. Bones: As above. Nerves: Normal. Blood vessels: Normal. MR/MR foot LT wo con IMPRESSION: 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 There is diffuse edema suspicious for cellulitis with possible abscess formation in the lateral soft tissues adjacent to the fifth metatarsal. Impression dictated by: Canelo Red M.D.02/08/2023 2:39 PM Dictation Location: [place] [address] Transcribed By: [facility] 02/08/23 143 Dictated By: Canelo Red II, MD 02/08/23 142 Signed By: 02/08/23 143 Normal [facility] Prealbuminon 02-08-2023 Prealbumin [Mass/Vol] 4.5 mg/dL Low 17.0-34.0 [facility] Comment on above: Result Comment: PERF ORMED BY: [facility] [address] [place] [address] PATHOLOGIST EMAIL PRODUCER FARRAH PAUL M.D. Performed By: #### G LULS #### Point of Care testing , Basic Metabolic Panelon 01-27 Anion gap [Moles/Vol] 10.9 mmol/L Normal 6.0-15.0 [facility] Comment on above: Performed By: #### G LULS #### Point of Care testing , Calcium [Mass/Vol] 8.0 mg/dL Low 8.6-10.3 [facility] Comment on above: Performed By: #### G LULS #### Point of Care testing , Chloride [Moles/Vol] 109 mmol/L High 98-107 [facility] Comment on above: Performed By: #### G LULS #### Point of Care testing , CO2 [Moles/Vol] 20.0 mmol/L Low 21.0-31.0 [facility] Comment on above: Performed By: #### G LULS #### Point of Care testing , Creatinine [Mass/Vol] 1.37 mg/dL High 0.70-1.30 [facility] Comment on above: Performed By: #### G LULS #### Point of Care testing , Creatinine Clr Calc Pharmacy 73.19 [facility] Comment on above: Performed By: #### G LULS #### Point of Care testing , GFR/1.73 sq M.predicted MDRD (S/P/Bld) [Vol rate/Area] 58.689 mL/min/{1.73_m2} Normal [facility] Comment on above: Performed By: #### G MAURICIOLS #### Point of Care testing , Glucose [Mass/Vol] 69 mg/dL Low 70-100 [facility] Comment on above: Result Comment: [facility] Glucose Reference Range is dependent on time and content of last meal. Glucose of more than 200 mg/dL in a nonstressed, ambulatory subject supports the diagnosis of Diabetes Mellitus. ADA recommended reference range Performed By: #### G BHARATI #### Point of Care testing , Potassium [Moles/Vol] 3.9 mmol/L Normal 3.5-5.1 [facility] Comment on above: Performed By: #### G BHARATI #### Point of Care testing , Sodium [Moles/Vol] 136 mmol/L Normal 136-145 [facility] Comment on above: Performed By: #### G BHARATI #### Point of Care testing , Urea nitrogen [Mass/Vol] 25 mg/dL Normal 7-25 [facility] Comment on above: Performed By: #### G BHARATI #### Point of Care testing , Anion gap [Moles/Vol] 9.4 mmol/L Normal 6.0-15.0 [facility] Comment on above: Performed By: #### B MP #### [facility] [address] Calcium [Mass/Vol] 8.0 mg/dL Low 8.6-10.3 [facility] Comment on above: Performed By: #### B MP #### [facility] [address] [place] [address] [place] Chloride [Moles/Vol] 109 mmol/L High 98-107 [facility] Comment on above: Performed By: #### B MP #### [facility] [address] [place] [address] [place] CO2 [Moles/Vol] 20.6 mmol/L Low 21.0-31.0 [facility] Comment on above: Performed By: #### B MP #### [address] Creatinine [Mass/Vol] 1.43 mg/dL High 0.70-1.30 [facility] Comment on above: Performed By: #### B MP #### [place] [address] [place] Creatinine Clr Calc Pharmacy 70.27 Normal [facility] Comment on above: Result Comment: PERF ORMED BY: [place] [address] PATHOLOGIST EMAIL PRODUCER FARRAH PAUL M.D. Performed By: #### B MP #### [place] [address] [place] GFR/1.73 sq M.predicted MDRD (S/P/Bld) [Vol rate/Area] 55.746 mL/min/{1.73_m2} Normal [facility] Comment on above: Performed By: #### B MP #### [address] Glucose [Mass/Vol] 136 mg/dL High 70-100 [facility] Comment on above: Result Comment: [place] Glucose Reference Range is dependent on time and content of last meal. Glucose of more than 200 mg/dL in a nonstressed, ambulatory subject supports the diagnosis of Diabetes Mellitus. ADA recommended reference range Performed By: #### B MP #### [address] Potassium [Moles/Vol] 4.0 mmol/L Normal 3.5-5.1 [facility] Comment on above: Performed By: #### B MP #### [address] Sodium [Moles/Vol] 135 mmol/L Low 136-145 [facility] Comment on above: Performed By: #### B MP #### [place] [address] [place] Urea nitrogen [Mass/Vol] 27 mg/dL High 7-25 [facility] Comment on above: Performed By: #### B MP #### [address] C-Reactive Proteinon 023 C-Reactive Protein 18.3 mg/dL High 0.0-0.5 [facility] Comment on above: Result Comment: PERF ORMED BY: [place] [address] PATHOLOGIST EMAIL PRODUCER FARRAH PAUL M.D. Performed By: #### G LULS #### Point of Care testing , Complete Blood Count Auto Di ffon 02-07-2023 Basophils (Bld) [#/Vol] 0.0 10*3/uL Normal 0.0-0.2 [facility] Comment on above: Result Comment: PERF ORMED BY: [place] [address] PATHOLOGIST EMAIL PRODUCER FARRAH PAUL M.D. Performed By: #### G LULS #### Point of Care testing , Basophils/100 WBC (Bld) 0.3 % Normal . [facility] Comment on above: Performed By: #### G LULS #### Point of Care testing , Eosinophils (Bld) [#/Vol] 0.6 10*3/uL High 0.0-0.45 [facility] Comment on above: Performed By: #### G LULS #### Point of Care testing , Eosinophils/100 WBC (Bld) 5.2 % Normal . [facility] Comment on above: Performed By: #### G LULS #### Point of Care testing , Erythrocyte distribution width (RBC) [Ratio] 14.8 % Normal 12.0-14.8 [facility] Comment on above: Performed By: #### G LULS #### Point of Care testing , Hematocrit (Bld) [Volume fraction] 21.3 % Low 38.8-50.0 [facility] Comment on above: Performed By: #### G LULS #### Point of Care testing , Hemoglobin (Bld) [Mass/Vol] 6.9 g/dL Low 13.0-17.0 [facility] Comment on above: Performed By: #### Eros CALABRESE #### Point of Care testing , Lymphocytes (Bld) [#/Vol] 1.6 10*3/uL Normal 1.00-4.8 [facility] Comment on above: Performed By: #### Eros MARTÍNEZLS #### Point of Care testing , Lymphocytes/100 WBC (Bld) 13.5 % Normal . [facility] Comment on above: Performed By: #### Eros MARTÍNEZLS #### Point of Care testing , MCH (RBC) [Entitic mass] 25.4 pg Low 27.5-35.2 [facility] Comment on above: Performed By: #### Eros MARTÍNEZLS #### Point of Care testing , MCV (RBC) [Entitic vol] 78.4 fL Low 83.5-101 [facility] Comment on above: Performed By: #### Eros MARTÍNEZLS #### Point of Care testing , Mean Corpuscular HGB Conc 32.4 g/dL Low 32.5-35.6 [facility] Comment on above: Performed By: #### Eros CALABRESE #### Point of Care testing , Monocytes (Bld) [#/Vol] 1.1 10*3/uL High 0.0-0.8 [facility] Comment on above: Performed By: #### Eros CALABRESE #### Point of Care testing , Monocytes/100 WBC (Bld) 9.6 % Normal . [facility] Comment on above: Performed By: #### Eros CALABRESE #### Point of Care testing , Neutrophils (Bld) [#/Vol] 8.3 10*3/uL High 1.8-7.7 [facility] Comment on above: Performed By: #### Eros MARTÍNEZLS #### Point of Care testing , Neutrophils/100 WBC (Bld) 71.4 % Normal . [facility] Comment on above: Performed By: #### Eros CALABRESE #### Point of Care testing , NRBC% 0.0 /100{WBC} Normal 0-0.5 [facility] Comment on above: Performed By: #### G LULS #### Point of Care testing , Platelet mean volume (Bld) [Entitic vol] 6.5 fL Low 6.6-10.1 [facility] Comment on above: Performed By: #### G LULS #### Point of Care testing , Platelets (Bld) [#/Vol] 276 10*3/uL Normal 150-450 [facility] Comment on above: Performed By: #### G LULS #### Point of Care testing , RBC (Bld) [#/Vol] 2.71 10*6/uL Low 3.90-5.60 [facility] Comment on above: Performed By: #### G LULS #### Point of Care testing , WBC (Bld) [#/Vol] 11.7 10*3/uL High 4.1-10.5 [facility] Comment on above: Performed By: #### G LULS #### Point of Care testing , Glucose Poct Glucometerson 1 04-09-2022 Commemt1 Glu2: [facility] Comment on above: Result Comment: PERF ORMED BY: [address] [place] [address] PATHOLOGIST EMAIL PRODUCER FARRAH PAUL M.D. Performed By: #### G LULS #### Point of Care testing , Glucose [Mass/Vol] 177 mg/dL Normal [facility] Comment on above: Result Comment: [facility] Glucose Reference Range is dependent on time and content of last meal. Glucose of more than 200 mg/dL in a nonstressed, ambulatory subject supports the diagnosis of Diabetes Mellitus. Performed By: #### G LULS #### Point of Care testing , Commemt1 Glu2: [facility] Comment on above: Result Comment: PERF ORMED BY: [facility] [address] [place] [address] PATHOLOGIST EMAIL PRODUCER FARRAH PAUL M.D. Performed By: #### G LULS #### Point of Care testing , Glucose [Mass/Vol] 140 mg/dL Normal [facility] Comment on above: Result Comment: [place] [facility] Glucose Reference Range is dependent on time and content of last meal. Glucose of more than 200 mg/dL in a nonstressed, ambulatory subject supports the diagnosis of Diabetes Mellitus. Performed By: #### G LULS #### Point of Care testing , Commemt1 Glu2: [facility] Normal [facility] Comment on above: Result Comment: PERF ORMED BY: [address] [place] [address] PATHOLOGIST EMAIL PRODUCER FARRAH PAUL M.D. Performed By: #### G LULS #### Point of Care testing , Glucose [Mass/Vol] 136 mg/dL Normal [facility] Comment on above: Result Comment: [place] [facility] Glucose Reference Range is dependent on time and content of last meal. Glucose of more than 200 mg/dL in a nonstressed, ambulatory subject supports the diagnosis of Diabetes Mellitus. Performed By: #### G LULS #### Point of Care testing , Glucose [Mass/Vol] 81 mg/dL Normal [facility] [facility] Comment on above: Result Comment: [place] om Glucose Reference Range is dependent on time and content of last meal. Glucose of more than 200 mg/dL in a nonstressed, ambulatory subject supports the diagnosis of Diabetes Mellitus. PERFORMED BY: [address] [place] [address] PATHOLOGIST EMAIL PRODUCER FARRAH PAUL M.D. Performed By: #### G LULS #### Point of Care testing , Glucose [Mass/Vol] 167 mg/dL Normal [facility] Comment on above: Result Comment: [place] Glucose Reference Range is dependent on time and content of last meal. Glucose of more than 200 mg/dL in a nonstressed, ambulatory subject supports the diagnosis of Diabetes Mellitus. PERFORMED BY: [address] [address] PATHOLOGIST EMAIL PRODUCER FARRAH PAUL M.D. Performed By: #### G LULS #### Point of Care testing , Hemoglobin and Hematocriton 11-12-2023 Hematocrit (Bld) [Volume fraction] 22.1 % Low 38.8-50.0 [facility] Comment on above: Result Comment: PERF ORMED BY: [place] [address] [place] [address] PATHOLOGIST EMAIL PRODUCER FARRAH PAUL M.D. Performed By: #### G LULS #### Point of Care testing , Hemoglobin (Bld) [Mass/Vol] 7.1 g/dL Low 13.0-17.0 [facility] Comment on above: Performed By: #### G LULS #### Point of Care testing , Superficial Wound Cultureon 02-07-2023 Superficial Wound Culture ORGANISM: Pseudomonas aeruginosa (O:PSEAER) Quantity of Growth Heavy Growth ORGANISM: Strep dysgalactiae (O:STRDYS) Comments Organism Not Routinely Tested for Susceptibilities Quantity of Growth Moderate Growth Aerobic RENAN Charge (NMIC56) SUSCEPTIBILITY ORGANISM: O:PSEAER ANTIBIOTIC INTERPRETATION RENAN Amikacin S <16 Aztreonam IB <4 Cefepime S 4 Ceftazidime IB <1 Ceftazidime/Avibactam S <4 Ceftolozane/Tazobactam S <2 Ciprofloxacin S <0.25 Gentamicin S <2 Levofloxacin S <0.5 Meropenem S <1 Piperacillin/Tazobactam IB <8 Tobramycin S <2 S = SUSCEPTIBLE I = INTERMEDIATE R = RESISTANT BLANK = DATA NOT AVAILABLE, OR DRUG NOT ADVISABLE OR TESTED R* = RESISTANCE DUE TO EXTENDED SPECTRUM BETA-LACTAMASES ESBL = EXTENDED SPECTRUM BETA-LACTAMASE TFG = THYMIDINE-DEPENDENT STRAIN MAGDALENE = BETA-LACTAMASE POSITIVE IB = INDUCIBLE BETA-LACTAMASE. APPEARS IN PLACE OF 'S' WITH SPECIES KNOWN TO POSSESS INDUCIBLE BETA-LACTAMASES. POTENTIALLY THEY MAY BECOME RESISTANT TO ALL B-LACTAM DRUGS. PERFORMED BY: [facility] [address] [place] [address] PATHOLOGIST EMAIL PRODUCER FARRAH PAUL M.D. [facility] Comment on above: Performed By: #### G BHARATI #### Point of Care testing , Superficial Wound Culture ORGANISM: Alcaligenes faecalis (O:ALCFAE) Quantity of Growth Light Growth ORGANISM: Strep dysgalactiae (O:STRDYS) Comments Organism Not Routinely Tested for Susceptibilities Quantity of Growth Moderate Growth Aerobic RENAN Charge (NMIC56) SUSCEPTIBILITY ORGANISM: O:ALCFAE ANTIBIOTIC INTERPRETATION RENAN Amikacin S <16 Aztreonam I 16 Cefepime I 16 Ceftazidime S 4 Ceftriaxone S <1 Gentamicin S 4 Piperacillin/Tazobactam S <8 Tetracycline R >8 Tobramycin S 4 Trimethoprim/Sulfamethoxazo le R >2 S = SUSCEPTIBLE I = INTERMEDIATE R = RESISTANT BLANK = DATA NOT AVAILABLE, OR DRUG NOT ADVISABLE OR TESTED R* = RESISTANCE DUE TO EXTENDED SPECTRUM BETA-LACTAMASES ESBL = EXTENDED SPECTRUM BETA-LACTAMASE TFG = THYMIDINE-DEPENDENT STRAIN MAGDALENE = BETA-LACTAMASE POSITIVE IB = INDUCIBLE BETA-LACTAMASE. APPEARS IN PLACE OF 'S' WITH SPECIES KNOWN TO POSSESS INDUCIBLE BETA-LACTAMASES. POTENTIALLY THEY MAY BECOME RESISTANT TO ALL B-LACTAM DRUGS. PERFORMED BY: [facility] [address] [place] [address] PATHOLOGIST EMAIL PRODUCER FARRAH PAUL M.D. [facility] Comment on above: Performed By: #### G BHARATI #### Point of Care testing , Ambulatory Visit Summaryon 1 Ambulatory Visit Summary GANGA STINSON :1960 Visit Date:01/19/2023 Ambulatory Visit Instructions Your Care Team Attending Physician - ALLEN NAZARIO, Parvin Christie Primary Care Physician - MILENA NAZARIO, FIDEL This Is Your Medications List Misc Prescription (IRON 65MG TAB) amlodipine (amLODIPine 10 mg Tab) atenolol (atenolol 100 mg Tab) ciprofloxacin (Cipro 500 mg Tab) citalopram (citalopram 40 mg Tab) glipiZIDE (glipiZIDE 10 mg Tab) lisinopril (lisinopril 20 mg Tab) oxybutynin (oxybutynin 15 mg ER Tab) sitagliptin (Januvia 100 mg Tab) Procedures Performed Cystourethroscopy with dilation of urethral stricture (10/08/2022), DVU - Direct vision urethrotomy (2022), Appendix, Back, Cystoscopy, IVC - Insertion of inferior vena caval filter, Urodynamics. Medications What How Much When Instructions Unchanged amlodipine (amLODIPine 10 mg Tab) Unchanged atenolol (atenolol 100 mg Tab) Unchanged ciprofloxacin (Cipro 500 mg Tab) 1 Tablets By Mouth Every day Take 1 tablet the day before the procedure and 1 tablet after the procedure Unchanged citalopram (citalopram 40 mg Tab) Unchanged glipiZIDE (glipiZIDE 10 mg Tab) Unchanged lisinopril (lisinopril 20 mg Tab) Unchanged Misc Prescription (IRON 65MG TAB) 0 Unchanged oxybutynin (oxybutynin 15 mg ER Tab) Unchanged sitagliptin (Januvia 100 mg Tab) 1 Tablets Allergies omadacycline (Kidney pain) Problems Ongoing - Any problem that you are currently receiving treatment for. Anemia Diabetes Hyperlipidemia Hypertension Neurogenic bladder Paraplegia Sleep apnea Urethral stricture in male Urinary retention Patient Survey You may receive a survey via text or e-mail asking about your office visit. Please share your experience with us by completing your survey. We appreciate your feedback and thank you for choosing us for your care. [facility] Operative Reporton Operative Report [id number]#1.00TIFF [facility] Pre-Certification Formon Pre-Certification Form [id number]#1.00TIFF [facility] Insurance Correspondenceon 0 12-25-2022 Insurance Correspondence [id number]#1.00CD:127 [facility] Consent for Procedure/Surger yon 12-22-2022 Consent for Procedure/Surgery [id number]#1.00CD:127 Normal [facility] Consultation Noteon 11-11-19 Consultation Note [id number]#1.00CD:127 [facility] Lab Reportson 11-10-2022 Lab Reports [id number]#1.00CD:127 [facility] Operative Reporton Operative Report [id number]#1.00CD:127 [facility] RAD - Ultrasound Reporton RAD - Ultrasound Report [id number]#1.00CD:127 [facility] Ambulatory Visit Summaryon 0 11-09-2022 Ambulatory Visit Summary GANGA STINSON :1960 Visit Date:11/09/2022 Ambulatory Visit Instructions Your Diagnosis Urinary retention Urethral stricture in male Neurogenic bladder Your Care Team Attending Physician - Parvin VILLA MD Primary Care Physician - MILENA NAZARIO, FIDEL This Is Your Medications List Contact prescribing physician if questions or concerns Misc Prescription (IRON 65MG TAB) amlodipine (amLODIPine 10 mg Tab) atenolol (atenolol 100 mg Tab) citalopram (citalopram 40 mg Tab) glipiZIDE (glipiZIDE 10 mg Tab) lisinopril (lisinopril 20 mg Tab) oxybutynin (oxybutynin 15 mg ER Tab) sitagliptin (Januvia 100 mg Tab) Procedures Performed Cystourethroscopy with dilation of urethral stricture (10/08/2022), DVU - Direct vision urethrotomy (2022), Appendix, Back, Cystoscopy, IVC - Insertion of inferior vena caval filter, Urodynamics. Discharge Vitals Heart Rate (Peripheral) 78 Blood Pressure 148/72 Height 180 cm Height 71 in Weight 113 kg Weight 248.6 lb BMI 34.88 What to do next You Need to Schedule the Following Appointments Follow Up with ALLEN NAZARIO, Parvin Christie, URL When: Comments: sched cysto Where: [facility] [address], [place] [phone] Medications What How Much When Instructions Unchanged amlodipine (amLODIPine 10 mg Tab) Contact prescribing physician if questions or concerns Unchanged atenolol (atenolol 100 mg Tab) Contact prescribing physician if questions or concerns Unchanged citalopram (citalopram 40 mg Tab) Contact prescribing physician if questions or concerns Unchanged glipiZIDE (glipiZIDE 10 mg Tab) Contact prescribing physician if questions or concerns Unchanged lisinopril (lisinopril 20 mg Tab) Contact prescribing physician if questions or concerns Unchanged Misc Prescription (IRON 65MG TAB) 0 Contact prescribing physician if questions or concerns Unchanged oxybutynin (oxybutynin 15 mg ER Tab) Contact prescribing physician if questions or concerns Unchanged sitagliptin (Januvia 100 mg Tab) 1 Tablets Contact prescribing physician if questions or concerns Allergies omadacycline (Kidney pain) Problems Ongoing - Any problem that you are currently receiving treatment for. Anemia Diabetes Hyperlipidemia Hypertension Neurogenic bladder Paraplegia Sleep apnea Urethral stricture in male Urinary retention Education Materials Acute Urinary Retention, Male Acute urinary retention is a condition in which a person is unable to pass urine or can only pass a little urine. This condition can happen suddenly and last for a short time. If left untreated, it can become long-term (chronic) and result in kidney damage or other serious complications. What are the causes? This condition may be caused by: ? Obstruction or narrowing of the tube that drains the bladder (urethra). This may be caused by surgery, problems with nearby organs, or injury to the bladder or urethra. ? Problems with the nerves in the bladder. ? Tumors in the area of the pelvis, bladder, or urethra. ? Certain medicines. ? Bladder or urinary tract infection. ? Constipation. What increases the risk? This condition is more likely to develop in older men. As men age, their prostate may become larger and may start to press or squeeze on the bladder or the urethra. Other chronic health conditions can increase the risk of acute urinary retention. These include: ? Diseases such as multiple sclerosis. ? Spinal cord injuries. ? Diabetes. ? Degenerative cognitive conditions, such as delirium or dementia. ? Psychological conditions. A man may hold his urine due to trauma or because he does not want to use the bathroom. What are the signs or symptoms? Symptoms of this condition include: ? Trouble urinating. ? Pain in the lower abdomen. How is this diagnosed? This condition is diagnosed based on a physical exam and your medical history. You may also have other tests, including: ? An ultrasound of the bladder or kidneys or both. ? Blood tests. ? A urine analysis. ? Additional tests may be needed, such as a CT scan, MRI, and kidney or bladder function tests. How is this treated? Treatment for this condition may include: ? Medicines. ? Placing a thin, sterile tube (catheter) into the bladder to drain urine out of the body. This is called an indwelling urinary catheter. After it is inserted, the catheter is held in place with a small balloon that is filled with sterile water. Urine drains from the catheter into a collection bag outside of the body. ? Behavioral therapy. ? Treatment for other conditions. If needed, you may be treated in the hospital for kidney function problems or to manage other complications. Follow these instructions at home: Medicines ? Take dlox-axo-xsteoac and prescription medicines only as told by your heal (more content not included)... Normal [facility] Patient Educationon 11-10-19 Patient Education Urology Acute Urinary Retention, Male Acute urinary retention is a condition in which a person is unable to pass urine or can only pass a little urine. This condition can happen suddenly and last for a short time. If left untreated, it can become long-term (chronic) and result in kidney damage or other serious complications. What are the causes? This condition may be caused by: ? Obstruction or narrowing of the tube that drains the bladder (urethra). This may be caused by surgery, problems with nearby organs, or injury to the bladder or urethra. ? Problems with the nerves in the bladder. ? Tumors in the area of the pelvis, bladder, or urethra. ? Certain medicines. ? Bladder or urinary tract infection. ? Constipation. What increases the risk? This condition is more likely to develop in older men. As men age, their prostate may become larger and may start to press or squeeze on the bladder or the urethra. Other chronic health conditions can increase the risk of acute urinary retention. These include: ? Diseases such as multiple sclerosis. ? Spinal cord injuries. ? Diabetes. ? Degenerative cognitive conditions, such as delirium or dementia. ? Psychological conditions. A man may hold his urine due to trauma or because he does not want to use the bathroom. What are the signs or symptoms? Symptoms of this condition include: ? Trouble urinating. ? Pain in the lower abdomen. How is this diagnosed? This condition is diagnosed based on a physical exam and your medical history. You may also have other tests, including: ? An ultrasound of the bladder or kidneys or both. ? Blood tests. ? A urine analysis. ? Additional tests may be needed, such as a CT scan, MRI, and kidney or bladder function tests. How is this treated? Treatment for this condition may include: ? Medicines. ? Placing a thin, sterile tube (catheter) into the bladder to drain urine out of the body. This is called an indwelling urinary catheter. After it is inserted, the catheter is held in place with a small balloon that is filled with sterile water. Urine drains from the catheter into a collection bag outside of the body. ? Behavioral therapy. ? Treatment for other conditions. If needed, you may be treated in the hospital for kidney function problems or to manage other complications. Follow these instructions at home: Medicines ? Take pewi-gpg-fuqwuzn and prescription medicines only as told by your health care provider. Avoid certain medicines, such as decongestants, antihistamines, and some prescription medicines. Do not take any medicine unless your health care provider approves. ? If you were prescribed an antibiotic medicine, take it as told by your health care provider. Do not stop using the antibiotic even if you start to feel better. General instructions ? Do not use any products that contain nicotine or tobacco. These products include cigarettes, chewing tobacco, and vaping devices, such as e-cigarettes. If you need help quitting, ask your health care provider. ? Drink enough fluid to keep your urine pale yellow. ? If you have an indwelling urinary catheter, follow the instructions from your health care provider. ? Monitor any changes in your symptoms. Tell your health care provider about any changes. ? If instructed, monitor your blood pressure at home. Report changes as told by your health care provider. ? Keep all follow-up visits. This is important. Contact a health care provider if: ? You have uncomfortable bladder contractions that you cannot control (spasms). ? You leak urine with the spasms. Get help right away if: ? You have chills or a fever. ? You have blood in your urine. ? You have a catheter and the following happens: ? Your catheter stops draining urine. ? Your catheter falls out. Summary ? Acute urinary retention is a condition in which a person is unable to pass urine or can only pass a little urine. If left untreated, this condition can result in kidney damage or other serious complications. ? An enlarged prostate may cause this condition. As men age, their prostate gland may become larger and may press or squeeze on the bladder or the urethra. ? Treatment for this condition may include medicines and placement of an indwelling urinary catheter. ? Monitor any changes in your symptoms. Tell your health care provider about any changes. This information is not intended to replace advice given to you by your health care provider. Make sure you discuss any questions you have with your health care provider. Document Revised: 12/04/2020 Document Reviewed: 12/04/2020 [employer] Patient Education ? 2022 [employer]. [facility] Urology Office/Clinic Noteon 11-09-2022 Urology Office/Clinic Note HPI Staff Follow up to hospital consult 10/08/2022 due to cath insertion S/P cysto UD cath insertion 10/08/2022.... Pt is a new Pt last seen in our office 02/25/[address] Crockett due to NGB incomplete bladder and BPH Pt has been seeing Dr. Clarke ( [facility])for the last couple years last seen 08/04/2022 Pt is a paraplegic CIC 3-4 times a day for past 6-7 years S/P DVIU [address] Clarke MEIR 09/19/2022 C&S negative 09/25/2022 Denies visible blood in bag no pain or burning. History of Present Illness Tests reviewed: reviewed UA, renal US I have reviewed the previous health record information and history for this patient from Dr. Villa. I have reviewed and verified the staff HPI to be accurate for this encounter. There have been no associated fever, chills, flank pain, or blood in the urine. Denies any urinary infections since last encounter. Review of Systems PHQ Score Initial Depression Screen Score: 0 ROS - Provider Constitutional: denies weight loss, denies hot flashes. Eyes: denies eye problems. Gastrointestinal: denies nausea, denies vomiting. Cardiovascular: denies chest pain or angina. Integumentary: no dryness Musculoskeletal: denies musculoskeletal symptoms. ENMT: denies otolaryngeal symptoms. Respiratory: no shortness of breath. Heme/Lymph: denies easy bleeding tendency, denies easy bruising tendency. Psychiatric: no confusion, no anxiety. Genitourinary: See HPI. Physical Exam Vitals & Measurements HR: 78(Peripheral) BP: 148/72 HT: 71 in HT: 180 cm WT: 113 kg WT: 248.6 lb BMI: 34.88 General Appearance: alert, no distress, well nourished, well developed male. Genitourinary: normal scrotum, normal testes, normal urethra, normal epididymis, normal vas deferens/spermatic cord. Flank Pain: none. Bladder: nonpalpable. Assessment/Plan Pt was last seen in office on 02/25/[address] Crockett. 1. Urinary retention (R33.9: Retention of urine, unspecified) S/p Urodynamics 2003 and Cysto/Urodynamics 05/30/10. Renal US done 09/19/22 is negative for stones and hydronephrosis. No acute abnormalities of the bladder. Pt was seen in consult at [facility] on 10/08/22 for difficulty with catheter placement. Pt does CIC as he is paraplegic and has a neurogenic bladder. Pt would like to continue to have a catheter in place. Pt's catheter has been removed in office with no complications. They have been advised to drink plenty of fluids. Pt. has been instructed to call the office in the event that they are not able to void in the next 4-6 hrs. Advised pt. to go to the ER if they experience any severe bleeding, fever over 101, and/or shaking chills. Will schedule cystoscopy. The risks and benefits for cystoscopy have been discussed. The risks include bleeding, infection, and irritation of the bladder and urinary channel, among others. The patient, after being informed of procedural details and after questions have been answered, wishes to proceed. Full informed consent has been obtained. Will order Local anesthesia. Abx sent to [facility] in [place]. 2. Urethral stricture in male (N35.919: Unspecified urethral stricture, male, unspecified site) S/p Urethrotomy done 07/07/[address] Zaciewski. S/p Cysto/UD done 10/08/22. Pt understands urethral stricture may return and a dilation may need repeated. 3. Neurogenic bladder (N31.9: Neuromuscular dysfunction of bladder, unspecified) See #1 Follow-up With When Contact Information ALLEN NAZARIO, Parvin Christie, URL [facility] [address], [place] [address] [phone] Additional Instructions: sched cysto Patient Education Acute Urinary Retention, Male I, Dia Serrato, personally scribed for Dr. Villa on 11/09/2022 14:09:09. . Documentation recorded by the scribe, Dia Serrato, accurately reflects the services(s) I performed and decisions made by me. Authenticated by Dr. Villa on 11/09/2022 14:10:16. Problem List/Past Medical History Ongoing Anemia Diabetes Hyperlipidemia Hypertension Neurogenic bladder Paraplegia Sleep apnea Urethral stricture in male Urinary retention Historical No qualifying data Procedure/Surgical History Cystourethroscopy with dilation of urethral stricture (10/08/2022), DVU - Direct vision urethrotomy (2022), Appendix, Back, Cystoscopy, IVC - Insertion of inferior vena caval filter, Urodynamics. Medications amLODIPine 10 mg Tab atenolol 100 mg Tab citalopram 40 mg Tab glipiZIDE 10 mg Tab IRON 65MG TAB, 0 Januvia 100 mg Tab, 100 mg= 1 tab(s) lisinopril 20 mg Tab oxybutynin 15 mg ER Tab Allergies omadacycline (Kidney pain) Social History Tobacco Never (less than 100 in lifetime) Tobacco Use:. Never Smokeless Tobacco Use:., 11/09/2022 Family History Family history is negative Immunizations Vaccine Date Status Comments influenza virus vaccine, inactivated 04/10/2017 Recorded 2022-11-09: DATE: 11/02/2014 influenza vir (more content not included)... [facility] Comment on above: Result Comment: Elec tronically Signed By: Parvin VILLA MD\.br\Date and Time Signed: 11/09/22 14:10 EDT\.br\Electronically Co-Signed By: Dia Serrato\.br\Date and Time Co-Signed: 11/09/22 14:09 EDT Lab Reportson 10-12-2022 Lab Reports [id number]#1.00CD:127 [facility] Lab Reports [id number]#1.00CD:127 [facility] Lab Reports [id number]#1.00CD:127 [facility] Lab Reports [id number]#1.00CD:127 [facility] Lab Reports [id number]#1.00CD:127 [facility] Consultation Noteon 10-10-19 Consultation Note [id number]#1.00CD:127 [facility] Insurance Correspondence Off iceon 10-09-2022 Insurance Correspondence Office [id number]#1.00CD:127 [facility] Lab Reportson 10-09-2022 Lab Reports [id number]#1.00CD:127 [facility] Lab Reports [id number]:127 [facility] Lab Reports [id number]:127 [facility] Operative Reporton Operative Report [id number]#1.00CD:127 [facility] Cult,Urineon 09-26-2022 Cult,Urine Specimen Description .CLEAN CATCH URINE Culture NO SIGNIFICANT GROWTH Report Status FINAL 09/26/2022 [facility] Comment on above: Performed By: #### C MPX, CDP #### [facility] [address] [place] [address] Nuisance Wildlife Control Operator: Khadar Tang MD US RENAL COMPLETEon 09-20-19 US RENAL COMPLETE EXAMINATION: RETROPERITONEAL ULTRASOUND OF THE KIDNEYS AND URINARY BLADDER 09/18/2022 COMPARISON: None HISTORY: ORDERING SYSTEM PROVIDED HISTORY: Cauda equina syndrome (HCC) FINDINGS: Kidneys: The right kidney measures 10.9 cm in length and the left kidney measures 11.5 cm in length. Kidneys demonstrate normal cortical echogenicity. No evidence of hydronephrosis or intrarenal stones. Bladder: Unremarkable appearance of the bladder. No significant post void residual. IMPRESSION: Unremarkable ultrasound of the kidneys and urinary bladder. Interpreted by: Alexander Mcclain DO Signed by: Alexander Mcclain DO 09/19/22 Final result Normal [facility] Unremarkable ultraso und of the kidneys and urinary bladder. [facility] EXAMINATION: RETROPERITONEAL ULTRASOUND OF THE KIDNEYS AND URINARY BLADDER 09/18/2022 COMPARISON: None HISTORY: ORDERING SYSTEM PROVIDED HISTORY: Cauda equina syndrome (HCC) FINDINGS: Kidneys: The right kidney measures 10.9 cm in length and the left kidney measures 11.5 cm in length. Kidneys demonstrate normal cortical echogenicity. No evidence of hydronephrosis or intrarenal stones. Bladder: Unremarkable appearance of the bladder. No significant post void residual. [facility] Alexander Mcclain DO - 09/19/2022 EXAMINATION: RETROPERITONEAL ULTRASOUND OF THE KIDNEYS AND URINARY BLADDER 09/18/2022 COMPARISON: None HISTORY: ORDERING SYSTEM PROVIDED HISTORY: Cauda equina syndrome (HCC) FINDINGS: Kidneys: The right kidney measures 10.9 cm in length and the left kidney measures 11.5 cm in length. Kidneys demonstrate normal cortical echogenicity. No evidence of hydronephrosis or intrarenal stones. Bladder: Unremarkable appearance of the bladder. No significant post void residual. IMPRESSION: Unremarkable ultrasound of the kidneys and urinary bladder. [facility] US RENAL COMPLETEOrdered By: Alexander Mcclain on 09-19-2022 [facility] Work Phone: Basic Metabolic Profon 09-18 Anion gap [Moles/Vol] 10 mmol/L Normal 9-17 [facility] Comment on above: Performed By: #### B MP #### [facility] [address] [place], [place] [id number] [employer] Operator: Khadar Tang MD BUN/CRE Ratio 26 High 9-20 [facility] Comment on above: Performed By: #### B MP #### [facility] [address] [place], [place] 9138483 [employer] Operator: Khadar Tang MD Calcium [Mass/Vol] 9.3 mg/dL Normal 8.6-10.4 [facility] Comment on above: Performed By: #### B MP #### [facility] [address] [place], [place] 1486883 [employer] Operator: Khadar Tang MD Chloride [Moles/Vol] 105 mmol/L Normal 98-107 [facility] Comment on above: Performed By: #### B MP #### [facility] [address] [place], [place] 1435583 [employer] Operator: Khadar Tang MD CO2 [Moles/Vol] 22 mmol/L Normal 20-31 [facility] Comment on above: Performed By: #### B MP #### [facility] [address] [place], [place] 1279783 [employer] Operator: Khadar Tang MD Creatinine [Mass/Vol] 1.25 mg/dL High 0.70-1.20 [facility] Comment on above: Performed By: #### B MP #### [facility] [address] [place] [address] [place] [address] [employer] Operator: Khadar Tang MD GFR/1.73 sq M.predicted among non-blacks MDRD (S/P/Bld) [Vol rate/Area] mL/min/{1.73_m2} Normal >60 [facility] Comment on above: Result Comment: These results are not intended for use in patients <18 years of age. eGFR results are calculated without a race factor using the 2020 CKD-EPI equation. Careful clinical correlation is recommended, particularly when comparing to results calculated using previous equations. The CKD-EPI equation is less accurate in patients with extremes of muscle mass, extra-renal metabolism of creatine, excessive creatine ingestion, or following therapy that affects renal tubular secretion. Performed By: #### B MP #### [facility] [address] [place] 1438883 [employer] Operator: Khadar Tang MD Glucose [Mass/Vol] 186 mg/dL High 70-99 [facility] Comment on above: Performed By: #### B MP #### [facility] [address] [place] [id number] [employer] Operator: Khadar Tang MD Potassium [Moles/Vol] 4.1 mmol/L Normal 3.7-5.3 [facility] Comment on above: Performed By: #### B MP #### [facility] [address] [place] 2642083 [employer] Operator: Khadar Tang MD Sodium [Moles/Vol] 137 mmol/L Normal 135-144 [facility] Comment on above: Performed By: #### B MP #### [facility] [address] [place], [place] 8623[address] [employer] Operator: Khadar Tang MD Urea nitrogen [Mass/Vol] 32 mg/dL High 8-23 [facility] Comment on above: Performed By: #### B MP #### [facility] [address] [place] [id number] [employer] Operator: Khadar Tang MD RENAL COMPLETEon 09-19-19 Radiology Study observation (narrative) RAIN POWELL [facility] Aerobic Cultureon 09-08-2022 Aerobic Culture ORGANISM: Strep dysgalactiae (O:STRDYS) Comments Organism Not Routinely Tested for Susceptibilities Quantity of Growth Light Growth No Anaerobes Isolated 3 Days Gram Stain Result No Bacteria Seen PERFORMED BY: [facility] [address] [place] [address] PATHOLOGIST [employer]OD[employer] FARRAH PAUL M.D. [facility] Comment on above: Performed By: #### G LULS #### Point of Care testing , Hemoglobin A1Con 2022 Glucose [Mass/Vol] 171 mg/dL Normal [facility] Comment on above: Result Comment: The ADA and AACC recommend providing the estimated average glucose result to permit better patient understanding of their HBA1c result. Performed By: #### G LYHGB #### [facility] [employer]™ [employer] [address] [place], [place] [id number] [employer] Operator: Jeff Casanova MD HbA1c (Bld) [Mass fraction] 7.6 % High 4.0-6.0 [facility] Comment on above: Performed By: #### G LYHGB #### [address] [id number] [employer] Operator: Jeff Casanova MD OPERATIVE REPORTon 3 OPERATIVE REPORT [address] [address] OPERATIVE REPORT PATIENT NAME: GANGA STINSON : 1960 MED REC NO: [id number] ROOM: ACCOUNT NO: [id number] ADMIT DATE: 2022 PROVIDER: Angeles Nagy DATE OF PROCEDURE: 2022 SURGEON: Dr. Angeles Nagy. [employer] UNION: None. PREOPERATIVE DIAGNOSES: 1. Neurogenic bladder. 2. Urethral stricture. POSTOPERATIVE DIAGNOSES: 1. Neurogenic bladder. 2. Urethral stricture. PROCEDURE PERFORMED: Direct visual internal urethrotomy. ANESTHESIA: General. COMPLICATIONS: None. ESTIMATED BLOOD LOSS: Minimal. SPECIMENS: None. PROSTHESIS: An 18-Kazakh Rowe catheter. DISPOSITION: Stable. FINDINGS: Bulbous urethral stricture. 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 DESCRIPTION OF PROCEDURE: The patient was taken back to the operating room after informed consent including all risks, benefits, and alternatives were obtained. The patient was transferred from the [facility] onto the operating room table, where he was induced under general anesthesia and given IV Ancef for preoperative antibiotic prophylaxis. To begin the case, he was prepped and draped in the normal sterile fashion and placed in dorsal lithotomy. He had a 21-Kazakh sheath with a 30-degree lens passed through the urethra. We were able to visualize what appeared to be a strictured area that was traversed with a catheter . This was in the bulbous urethra. We were able to then use the cold knife apparatus and incise this strictured area in several spots. Once this was done, we were able to make our way to the bladder and analyze the bladder in a systematic fashion, mcbride-trabeculated, but no gross bladder tumors, areas of inflammation, or stone. We then removed the scope and inserted an 18-Kazakh Rowe catheter with ease. He was then awoken from general anesthesia, transferred to the [facility], and taken to the PACU in satisfactory condition by Nursing and Anesthesia Teams. PLAN: The patient will be discharged home per PACU criterion and follow up with me in one week for Rowe catheter removal. ANGELES NAGY ALEXANDRIA/[email or web address] Doc#: [id number] CC: Normal [facility] Basic Metabolic Panelon 04-0 Anion gap [Moles/Vol] 10 mmol/L 9 - 17 mmol/L [facility] Calcium [Mass/Vol] 8.8 mg/dL 8.6 - 10. 4 mg/dL [facility] Chloride [Moles/Vol] 106 mmol/L 98 - 107 mmol/L [facility] CO2 [Moles/Vol] 24 mmol/L 20 - 31 mmol/L [facility] Creatinine [Mass/Vol] 1.3 mg/dL High 0.70 - 1.20 mg/dL [facility] GFR/1.73 sq M.predicted MDRD (S/P/Bld) [Vol rate/Area] - PINF [facility] Comment on above: These results are not intended for use in patients <18 years of age. eGFR results are calculated without a race factor using the 2020 CKD-EPI equation. Careful clinical correlation is recommended, particularly when comparing to results calculated using previous equations. The CKD-EPI equation is less accurate in patients with extremes of muscle mass, extra-renal metabolism of creatine, excessive creatine ingestion, or following therapy that affects renal tubular secretion. Glucose [Mass/Vol] 250 mg/dL High 70 - 99 mg/dL [facility] Interpretation and review of laboratory results Abnormal [facility] Potassium [Moles/Vol] 4.0 mmol/L 3.7 - 5.3 mmol/L [facility] Sodium [Moles/Vol] 140 mmol/L 135 - 144 mmol/L [facility] Urea nitrogen [Mass/Vol] 29 mg/dL High 8 - 23 mg/dL [facility] Urea nitrogen/Creatinin e (Bld) [Mass ratio] 22 High 9 - 20 [facility] Basic Metabolic Profon 07-02 Anion gap [Moles/Vol] 10 mmol/L Normal 9-17 [facility] Comment on above: Performed By: #### C MPX, CDP #### [facility] [address] [place] [address] [place] [address] [employer] Operator: Khadar Tang MD BUN/CRE Ratio 22 High 9-20 [facility] Comment on above: Performed By: #### C MPX, CDP #### [facility] [address] [place] [address] [place] [address] [employer] Operator: Khadar Tang MD Calcium [Mass/Vol] 8.8 mg/dL Normal 8.6-10.4 [facility] Comment on above: Performed By: #### C MPX, CDP #### [facility] [address] [place] [address] [place] [address] [employer] Operator: Khadar Tang MD Chloride [Moles/Vol] 106 mmol/L Normal 98-107 [facility] Comment on above: Performed By: #### C MPX, CDP #### [facility] [address] [place] [address] [place] [address] [employer] Operator: Khadar Tang MD CO2 [Moles/Vol] 24 mmol/L Normal 20-31 [facility] Comment on above: Performed By: #### C MPX, CDP #### [facility] [address] [place] [address] [place] [address] [employer] Operator: Khadar Tang MD Creatinine [Mass/Vol] 1.30 mg/dL High 0.70-1.20 [facility] Comment on above: Performed By: #### C MPX, CDP #### [facility] [address] [place] [address] [place] [address] [employer] Operator: Khadar Tang MD GFR/1.73 sq M.predicted among non-blacks MDRD (S/P/Bld) [Vol rate/Area] mL/min/{1.73_m2} Normal >60 [facility] Comment on above: Result Comment: These results are not intended for use in patients <18 years of age. eGFR results are calculated without a race factor using the 2020 CKD-EPI equation. Careful clinical correlation is recommended, particularly when comparing to results calculated using previous equations. The CKD-EPI equation is less accurate in patients with extremes of muscle mass, extra-renal metabolism of creatine, excessive creatine ingestion, or following therapy that affects renal tubular secretion. Performed By: #### C MPX, CDP #### [address] [place] [address] [place] [address] [employer] Operator: Khadar Tang MD Glucose [Mass/Vol] 250 mg/dL High 70-99 [facility] Comment on above: Performed By: #### C MPX, CDP #### [facility] [address] [place] [place] [address] [place] [address] [employer] Operator: Khadar Tang MD Potassium [Moles/Vol] 4.0 mmol/L Normal 3.7-5.3 [facility] Comment on above: Performed By: #### C MPX, CDP #### [facility] [address] [place] [place] [address] [place] [address] [employer] Operator: Khadar Tang MD Sodium [Moles/Vol] 140 mmol/L Normal 135-144 [facility] Comment on above: Performed By: #### C MPX, CDP #### [facility] [address] [place] [place] [address] [place] [address] [employer] Operator: Khadar Tang MD Urea nitrogen [Mass/Vol] 29 mg/dL High 8-23 [facility] Comment on above: Performed By: #### C MPX, CDP #### [facility] [address] [place] [address] [place] [address] [employer] Operator: Khadar Tang MD CBC with Auto Differentialon 07-02-2022 Absolute Eos # 0.80 High [facility] Absolute Immature Granulocyte 0.06 [facility] Absolute Lymph # 1.38 [facility] Absolute Coos # 0.81 [facility] Basophils Absolute [facility] Basophils/100 WBC (Bld) 0 % 0 - 2 % [facility] Eosinophils/100 WBC (Bld) 7 % High 1 - 4 % [facility] Hematocrit (Bld) [Volume fraction] 26.8 % Low 40.7 - 50.3 % [facility] Hemoglobin (Bld) [Mass/Vol] 7.9 g/dL Low 13.0 - 17.0 g/dL [facility] Immature granulocytes/100 WBC (Bld) 1 % High 0 [facility] Interpretation and review of laboratory results Abnormal [facility] Lymphocytes/100 WBC (Bld) 13 % Low 24 - 43 % [facility] MCH (RBC) [Entitic mass] 23.3 pg Low 25.2 - 33.5 pg [facility] MCHC (RBC) [Mass/Vol] 29.5 g/dL 28.4 - 34.8 g/dL [facility] MCV (RBC) [Entitic vol] 79.1 fL Low 82.6 - 102.9 fL [facility] Monocytes/100 WBC (Bld) 8 % 3 - 12 % [facility] NRBC Automated 0.0 0.0 per 100 WBC [facility] Platelet distribution width (Bld) [Ratio] 16.1 % High 11.8 - 14.4 % [facility] Platelet mean volume (Bld) [Entitic vol] 9.1 fL 8.1 - 13.5 fL [facility] Platelets (Bld) [#/Vol] 241 10*3/uL [facility] RBC (Bld) [#/Vol] 3.39 10*6/uL Low 4.21 - 5.7 7 m/uL [facility] Segmented neutrophils/100 WBC (Bld) 71 % High 36 - 65 % [facility] Segs Absolute 7.79 [facility] WBC (Bld) [#/Vol] 10.9 10*3/uL [facility] CBC with Diffon 07-02-2022 Abs. Basophil <0.03 Normal 0.00-0.20 [facility] Comment on above: Performed By: #### C MPX, CDP #### [facility] [address] [place] [address] Dr. [place], [facility] [employer] Operator: Khadar Tang MD Abs.Imm.Granulocyt e 0.06 k/uL Normal 0.00-0.30 [facility] Comment on above: Performed By: #### C MPX, CDP #### [facility] [address] [place] [address] Dr. [place], [place] [id number] [employer] Operator: Khadar Tang MD Abs.Neutrophil (Seg) 7.79 k/uL Normal 1.50-8.10 [facility] Comment on above: Performed By: #### C MPX, CDP #### [facility] [address] [place], [place] 8269683 [employer] Operator: Khadar Tang MD Basophils/100 WBC (Bld) 0 % Normal 0-2 [facility] Comment on above: Performed By: #### C MPX, CDP #### [facility] [address] [place] [place] [address] [place] [address] [employer] Operator: Khadar Tang MD Eosinophils (Bld) [#/Vol] 0.80 10*3/uL High 0.00-0.44 [facility] Comment on above: Performed By: #### C MPX, CDP #### [address] [place], [place] 4494083 [employer] Operator: Khadar Tang MD Eosinophils/100 WBC (Bld) 7 % High 1-4 [facility] Comment on above: Performed By: #### C MPX, CDP #### [address] [place], [place] 7[address]83 [employer] Operator: Khadar Tang MD Erythrocyte distribution width (RBC) [Ratio] 16.1 % High 11.8-14.4 [facility] Comment on above: Performed By: #### C MPX, CDP #### [address] [place] [address] [place] [address] [employer] Operator: Khadar Tang MD Hematocrit (Bld) [Volume fraction] 26.8 % Low 40.7-50.3 [facility] Comment on above: Performed By: #### C MPX, CDP #### [address] [place], [place] 6693683 [employer] Operator: Khadar Tang MD Hemoglobin (Bld) [Mass/Vol] 7.9 g/dL Low 13.0-17.0 [facility] Comment on above: Performed By: #### C MPX, CDP #### [address] [place], [place] [id number] [employer] Operator: Khadar Tang MD Immature granulocytes/100 WBC (Bld) 1 % High 0 [facility] Comment on above: Performed By: #### C MPX, CDP #### [address] [place] [address] [place] [address] [employer] Operator: Khadar Tang MD Lymphocytes (Bld) [#/Vol] 1.38 10*3/uL Normal 1.10-3.70 [facility] Comment on above: Performed By: #### C MPX, CDP #### [facility] [address] [place], [place] [address] [employer] Operator: Khadar Tang MD Lymphocytes/100 WBC (Bld) 13 % Low 24-43 [facility] Comment on above: Performed By: #### C MPX, CDP #### [facility] [address] [place], [facility] [employer] Operator: Khadar Tang MD MCH (RBC) [Entitic mass] 23.3 pg Low 25.2-33.5 [facility] Comment on above: Performed By: #### C MPX, CDP #### [address] [place], [facility] [employer] Operator: Khadar Tang MD MCHC (RBC) [Mass/Vol] 29.5 g/dL Normal 28.4-34.8 [facility] Comment on above: Performed By: #### C MPX, CDP #### [address] [place], [facility] [employer] Operator: Khadar Tang MD MCV (RBC) [Entitic vol] 79.1 fL Low 82.6-102.9 [facility] Comment on above: Performed By: #### C MPX, CDP #### [address] [place], [facility] [employer] Operator: Khadar Tang MD Monocytes (Bld) [#/Vol] 0.81 10*3/uL Normal 0.10-1.20 [facility] Comment on above: Performed By: #### C MPX, CDP #### [facility] [address] [place] [address] [place] [address] Nu[employer] Operator: Khadar Tang MD Monocytes/100 WBC (Bld) 8 % Normal 3-12 [facility] Comment on above: Performed By: #### C MPX, CDP #### [facility] [address] [place], [place] 9984683 [employer] Operator: Khadar Tang MD Neutrophil (Seg) 71 % High 36-65 [facility] Comment on above: Performed By: #### C MPX, CDP #### [facility] [address] [place], [place] [address]89[address]83 [employer] Operator: Khadar Tang MD NRBC Automated 0.0 per 100 WBC Normal 0.0 [facility] Comment on above: Performed By: #### C MPX, CDP #### [facility] [address] [place], [place] [address] [employer] Operator: Khadar Tang MD Platelet mean volume (Bld) [Entitic vol] 9.1 fL Normal 8.1-13.5 [facility] Comment on above: Performed By: #### C MPX, CDP #### [address] [place], [place] [address]24[address]83 [employer] Operator: Khadar Tang MD Platelets (Bld) [#/Vol] 241 10*3/uL Normal 138-453 [facility] Comment on above: Performed By: #### C MPX, CDP #### [address] [place], [place] [address]39083 [employer] Operator: Khadar Tang MD RBC (Bld) [#/Vol] 3.39 10*6/uL Low 4.21-5.77 [facility] Comment on above: Performed By: #### C MPX, CDP #### [address] [place], [place] 3047683 [employer] Operator: Khadar Tang MD WBC (Bld) [#/Vol] 10.9 10*3/uL Normal 3.5-11.3 [facility] Comment on above: Performed By: #### C MPX, CDP #### [address] [place] [address] [employer] Operator: Khadar Tang MD Cult,Woundon 06-27-2022 Cult,Wound Specimen Description .WOUND Special Requests LEG Direct Exam NO NEUTROPHILS SEEN NO ORGANISMS SEEN Culture NO GROWTH Report Status FINAL 06/27/2022 Normal [facility] Comment on above: Performed By: #### C MPX, CDP #### [facility] [address] [place] [address] [employer] Operator: Khadar Tang MD CBC auto differentialon 05-29 Absolute Eos # 0.63 High [facility] Absolute Immature Granulocyte 0.05 [facility] Absolute Lymph # 1.33 [facility] Absolute Coos # 0.82 [facility] Basophils Absolute [facility] Basophils/100 WBC (Bld) 0 % 0 - 2 % [facility] Eosinophils/100 WBC (Bld) 7 % High 1 - 4 % [facility] Hematocrit (Bld) [Volume fraction] 24.4 % Low 40.7 - 50.3 % [facility] Hemoglobin (Bld) [Mass/Vol] 7.6 g/dL Low 13.0 - 17.0 g/dL [facility] Immature granulocytes/100 WBC (Bld) 1 % High 0 [facility] Interpretation and review of laboratory results Abnormal [facility] Lymphocytes/100 WBC (Bld) 14 % Low 24 - 43 % [facility] MCH (RBC) [Entitic mass] 23.8 pg Low 25.2 - 33.5 pg [facility] MCHC (RBC) [Mass/Vol] 31.1 g/dL 28.4 - 34.8 g/dL [facility] MCV (RBC) [Entitic vol] 76.3 fL Low 82.6 - 102.9 fL [facility] Monocytes/100 WBC (Bld) 9 % 3 - 12 % [facility] NRBC Automated 0.0 0.0 per 100 WBC [facility] Platelet distribution width (Bld) [Ratio] 16.0 % High 11.8 - 14.4 % [facility] Platelet mean volume (Bld) [Entitic vol] 8.8 fL 8.1 - 13.5 fL [facility] Platelets (Bld) [#/Vol] 205 10*3/uL [facility] RBC (Bld) [#/Vol] 3.20 10*6/uL Low 4.21 - 5.7 7 m/uL [facility] Segmented neutrophils/100 WBC (Bld) 69 % High 36 - 65 % [facility] Segs Absolute 6.49 [facility] WBC (Bld) [#/Vol] 9.3 10*3/uL [facility] CBC with Diffon 06-26-2022 Abs. Basophil <0.03 Normal 0.00-0.20 [facility] Comment on above: Performed By: #### C MPX, CDP #### [facility] [address] [place] [address] Dr[place] [id number] [employer] Operator: Khadar Tang MD Abs.Imm.Granulocyt e 0.05 k/uL Normal 0.00-0.30 [facility] Comment on above: Performed By: #### C MPX, CDP #### [address] [place] [address] [employer] Operator: Khadar Tang MD Abs.Neutrophil (Seg) 6.49 k/uL Normal 1.50-8.10 [facility] Comment on above: Performed By: #### C MPX, CDP #### [address] [place], [place] 0202983 [employer] Operator: Khadar Tang MD Basophils/100 WBC (Bld) 0 % Normal 0-2 [facility] Comment on above: Performed By: #### C MPX, CDP #### [address] [place] [address] [employer] Operator: Khadar Tang MD Eosinophils (Bld) [#/Vol] 0.63 10*3/uL High 0.00-0.44 [facility] Comment on above: Performed By: #### C MPX, CDP #### [facility] [address] [place], [place] [address] [employer] Operator: Khadar Tang MD Eosinophils/100 WBC (Bld) 7 % High 1-4 [facility] Comment on above: Performed By: #### C MPX, CDP #### [facility] [address] [place], [facility] [employer] Operator: Khadar Tang MD Erythrocyte distribution width (RBC) [Ratio] 16.0 % High 11.8-14.4 [facility] Comment on above: Performed By: #### C MPX, CDP #### [address] [place], [facility] [employer] Operator: Khadar Tang MD Hematocrit (Bld) [Volume fraction] 24.4 % Low 40.7-50.3 [facility] Comment on above: Performed By: #### C MPX, CDP #### [address] [place], [facility] [employer] Operator: Khadar Tang MD Hemoglobin (Bld) [Mass/Vol] 7.6 g/dL Low 13.0-17.0 [facility] Comment on above: Performed By: #### C MPX, CDP #### [address] [place], [facility] [employer] Operator: Khadar Tang MD Immature granulocytes/100 WBC (Bld) 1 % High 0 [facility] Comment on above: Performed By: #### C MPX, CDP #### [address] [place], [facility] Nu[employer] Operator: Khadar Tang MD Lymphocytes (Bld) [#/Vol] 1.33 10*3/uL Normal 1.10-3.70 [facility] Comment on above: Performed By: #### C MPX, CDP #### [facility] [address] [place], [place] [id number] [employer] Operator: Khadar Tang MD Lymphocytes/100 WBC (Bld) 14 % Low 24-43 [facility] Comment on above: Performed By: #### C MPX, CDP #### [facility] [address] [place], [facility] Nu[employer] Operator: Khadar Tang MD MCH (RBC) [Entitic mass] 23.8 pg Low 25.2-33.5 [facility] Comment on above: Performed By: #### C MPX, CDP #### [address] [place], [facility] Nuisance [employer] Operator: Khadar Tang MD MCHC (RBC) [Mass/Vol] 31.1 g/dL Normal 28.4-34.8 [facility] Comment on above: Performed By: #### C MPX, CDP #### [address] [place], [facility] Nu[employer] Operator: Khadar Tang MD MCV (RBC) [Entitic vol] 76.3 fL Low 82.6-102.9 [facility] Comment on above: Performed By: #### C MPX, CDP #### [address] [place], [facility] Nu[employer] Operator: Khadar Tang MD Monocytes (Bld) [#/Vol] 0.82 10*3/uL Normal 0.10-1.20 [facility] Comment on above: Performed By: #### C MPX, CDP #### [address] [place] [address] Nu[employer] Operator: Khadar Tang MD Monocytes/100 WBC (Bld) 9 % Normal 3-12 [facility] Comment on above: Performed By: #### C MPX, CDP #### [address] [place] [id number] [employer] Operator: Khadar Tang MD Neutrophil (Seg) 69 % High 36-65 [facility] Comment on above: Performed By: #### C MPX, CDP #### [facility] [address] [place], [place] [id number] [employer] Operator: Khadar Tang MD NRBC Automated 0.0 per 100 WBC Normal 0.0 [facility] Comment on above: Performed By: #### C MPX, CDP #### [facility] [address] [place], [place] [id number] [employer] Operator: Khadar Tang MD Platelet mean volume (Bld) [Entitic vol] 8.8 fL Normal 8.1-13.5 [facility] Comment on above: Performed By: #### C MPX, CDP #### [facility] [address] [place], [place] 5344383 [employer] Operator: Khadar Tang MD Platelets (Bld) [#/Vol] 205 10*3/uL Normal 138-453 [facility] Comment on above: Performed By: #### C MPX, CDP #### [address] [place], [place] 5945483 [employer] Operator: Khadar Tang MD RBC (Bld) [#/Vol] 3.20 10*6/uL Low 4.21-5.77 [facility] Comment on above: Performed By: #### C MPX, CDP #### [facility] [address] [place], [place] 8578183 [employer] Operator: Khadar Tang MD WBC (Bld) [#/Vol] 9.3 10*3/uL Normal 3.5-11.3 [facility] Comment on above: Performed By: #### C MPX, CDP #### [facility] [address] [place], [place] [id number] [employer] Operator: Khadar Tang MD EKG Rhythm Stripon [address] [facility] Glucose, Whole Bloodon 06-26 Glucose [Mass/Vol] 95 mg/dL 74 - 100 mg/dL [facility] No Panel Informationon 06-26 No dictation [facility] Work Phone: [facility] Work Phone: Surgical Pathologyon 023 Surgical Pathology (NOTE) -- Diagnosis -- POLYP, TRANSVERSE COLON, POLYPECTOMY:-FRAGMENTS OF TUBULAR ADENOMA. Jaz Kiran Electronically Signed Out ag06/30/2022 Clinical Information Pre-Op Diagnosis: HYPERKALEMIA Operative Findings: TRANSVERSE COLON POLYP Operation Performed: COLORECTAL CANCER SCREENING, HIGH RISK; EGD cd Source of Specimen A: TRANSVERSE COLON POLYP Gross Description GANGA STINSON, TRANSVERSE COLON POLYP Five pardo-white tissue fragments from 0.1 to 0.4 cm and are 0.8 x 0.4 x 0.1 cm in aggregate. Entirely 1cs. yr tm Microscopic Description Microscopic examination performed. SURGICAL PATHOLOGY CONSULTATION Patient Name: GANGA STINSON [facility] Rec: [id number] Path Number: [id number] [facility] ANATOMIC PATHOLOGY [address] [place] [address]. [place], [place] [address] Normal [facility] Comment on above: Performed By: #### C MPX, CDP #### [facility] [address] [place] [address] [place]. [place], [place] [address] Nu[employer] Operator: Khadar Tang MD Blood occult stool #1on 05-29 Date, Stool #1 3 [facility] Comment on above: 30 23 Hemoglobin.gastroi ntestinal spec 1 Ql (Stl) Negative NEGATIVE [facility] Time, Stool #1 1944 [facility] CBC auto differentialon 05-29 Absolute Eos # 0.63 High [facility] Absolute Immature Granulocyte 0.07 [facility] Absolute Lymph # 1.63 [facility] Absolute Coos # 0.76 [facility] Basophils Absolute [facility] Basophils/100 WBC (Bld) 0 % 0 - 2 % [facility] Eosinophils/100 WBC (Bld) 7 % High 1 - 4 % [facility] Hematocrit (Bld) [Volume fraction] 24.6 % Low 40.7 - 50.3 % [facility] Hemoglobin (Bld) [Mass/Vol] 7.6 g/dL Low 13.0 - 17.0 g/dL [facility] Immature granulocytes/100 WBC (Bld) 1 % High 0 [facility] Interpretation and review of laboratory results Abnormal [facility] Lymphocytes/100 WBC (Bld) 19 % Low 24 - 43 % [facility] MCH (RBC) [Entitic mass] 23.7 pg Low 25.2 - 33.5 pg [facility] MCHC (RBC) [Mass/Vol] 30.9 g/dL 28.4 - 34.8 g/dL [facility] MCV (RBC) [Entitic vol] 76.6 fL Low 82.6 - 102.9 fL [facility] Monocytes/100 WBC (Bld) 9 % 3 - 12 % [facility] NRBC Automated 0.0 0.0 per 100 WBC [facility] Platelet distribution width (Bld) [Ratio] 15.9 % High 11.8 - 14.4 % [facility] Platelet mean volume (Bld) [Entitic vol] 8.9 fL 8.1 - 13.5 fL [facility] Platelets (Bld) [#/Vol] 223 10*3/uL [facility] RBC (Bld) [#/Vol] 3.21 10*6/uL Low 4.21 - 5.7 7 m/uL [facility] Segmented neutrophils/100 WBC (Bld) 64 % 36 - 65 % [facility] Segs Absolute 5.60 [facility] WBC (Bld) [#/Vol] 8.7 10*3/uL [facility] CBC with Diffon 06-25-2022 Abs. Basophil <0.03 Normal 0.00-0.20 [facility] Comment on above: Performed By: #### T ROPI #### [facility] [address] [place] [address] Nu[employer] Operator: Khadar Tang MD Abs.Imm.Granulocyt e 0.07 k/uL Normal 0.00-0.30 [facility] Comment on above: Performed By: #### T ROPI #### [facility] [address] [place], [place] [id number] [employer] Operator: Khadar Tang MD Abs.Neutrophil (Seg) 5.60 k/uL Normal 1.50-8.10 [facility] Comment on above: Performed By: #### T ROPI #### [address] [place], [facility] Nu[employer] Operator: Khadar Tang MD Basophils/100 WBC (Bld) 0 % Normal 0-2 [facility] Comment on above: Performed By: #### T ROPI #### [address] [place], [place] [address] Nu[employer] Operator: Khadar Tang MD Eosinophils (Bld) [#/Vol] 0.63 10*3/uL High 0.00-0.44 [facility] Comment on above: Performed By: #### T ROPI #### [facility] [address] [place] [address] Dr. [place], [place] [address] [employer] Operator: Khadar Tang MD Eosinophils/100 WBC (Bld) 7 % High 1-4 [facility] Comment on above: Performed By: #### T ROPI #### [address] [place], [facility] Nu[employer] Operator: Khadar Tang MD Erythrocyte distribution width (RBC) [Ratio] 15.9 % High 11.8-14.4 [facility] Comment on above: Performed By: #### T ROPI #### [facility] [address] [place] [address] Dr. [place], [facility] Nuisance [employer] Operator: Khadar Tang MD Hematocrit (Bld) [Volume fraction] 24.6 % Low 40.7-50.3 [facility] Comment on above: Performed By: #### T ROPI #### [address] [place] [facility] Nuisance [employer] Control Operator: Khadar Tang MD Hemoglobin (Bld) [Mass/Vol] 7.6 g/dL Low 13.0-17.0 [facility] Comment on above: Performed By: #### T ROPI #### [address] [place] [facility] Nuisance [employer] Operator: Khadar Tang MD Immature granulocytes/100 WBC (Bld) 1 % High 0 [facility] Comment on above: Performed By: #### T ROPI #### [address] [place], [facility] Nu[employer] Operator: Khadar Tang MD Lymphocytes (Bld) [#/Vol] 1.63 10*3/uL Normal 1.10-3.70 [facility] Comment on above: Performed By: #### T ROPI #### [address] [place] [facility] Nu[employer] Operator: Khadar Tang MD Lymphocytes/100 WBC (Bld) 19 % Low 24-43 [facility] Comment on above: Performed By: #### T ROPI #### [address] [place], [facility] Nu[employer] Operator: Khadar Tang MD MCH (RBC) [Entitic mass] 23.7 pg Low 25.2-33.5 [facility] Comment on above: Performed By: #### T ROPI #### [address] [place] [facility] Nuisance [employer] Operator: Khadar Tang MD MCHC (RBC) [Mass/Vol] 30.9 g/dL Normal 28.4-34.8 [facility] Comment on above: Performed By: #### T ROPI #### [facility] [address] [place] [address] Nu[employer] Operator: Khadar Tang MD MCV (RBC) [Entitic vol] 76.6 fL Low 82.6-102.9 [facility] Comment on above: Performed By: #### T ROPI #### [facility] [address] [place] [address] Nuisance [employer] Operator: Khadar Tang MD Monocytes (Bld) [#/Vol] 0.76 10*3/uL Normal 0.10-1.20 [facility] Comment on above: Performed By: #### T ROPI #### [address] [place], [place] 6362183 [employer] Operator: Khadar Tang MD Monocytes/100 WBC (Bld) 9 % Normal 3-12 [facility] Comment on above: Performed By: #### T ROPI #### [address] [place], [place] 0648183 [employer] Operator: Khadar Tang MD Neutrophil (Seg) 64 % Normal 36-65 [facility] Comment on above: Performed By: #### T ROPI #### [facility] [address] [place] [address] Dr. [place], [place] [id number] Nu[employer] Operator: Khadar Tang MD NRBC Automated 0.0 per 100 WBC Normal 0.0 [facility] Comment on above: Performed By: #### T ROPI #### [facility] [address] [place] [address] Nu[employer] Operator: Khadar Tang MD Platelet mean volume (Bld) [Entitic vol] 8.9 fL Normal 8.1-13.5 [facility] Comment on above: Performed By: #### T ROPI #### [facility] [address] [place], [place] [id number] [employer] Operator: Khadar Tang MD Platelets (Bld) [#/Vol] 223 10*3/uL Normal 138-453 [facility] Comment on above: Performed By: #### T ROPI #### [facility] [address] [place], [place] 9008983 [employer] Operator: Khadar Tang MD RBC (Bld) [#/Vol] 3.21 10*6/uL Low 4.21-5.77 [facility] Comment on above: Performed By: #### T ROPI #### [facility] [address] [place], [place] 4245983 [employer] Operator: Khadar Tang MD WBC (Bld) [#/Vol] 8.7 10*3/uL Normal 3.5-11.3 [facility] Comment on above: Performed By: #### T ROPI #### [facility] [address] [place], [place] 4065583 Nu[employer] Operator: Khadar Tang MD Comp Metabolic Pr/rfx MGon 0 - Albumin [Mass/Vol] 2.8 g/dL Low 3.5-5.2 [facility] Comment on above: Performed By: #### T ROPI #### [facility] [address] [place], [place] 9784583 [employer] Operator: Khadar Tang MD Albumin/Glob Ratio 0.7 Low 1.0-2.5 [facility] Comment on above: Performed By: #### T ROPI #### [facility] [address] [place] [address] Nu[employer] Operator: Khadar Tang MD Alkaline Phos 75 U/L Normal 40-129 [facility] Comment on above: Performed By: #### T ROPI #### [facility] [address] [place], [place] 0358683 [employer] Operator: Khadar Tang MD ALT [Catalytic activity/Vol] 9 U/L Normal 5-41 [facility] Comment on above: Performed By: #### T ROPI #### [facility] [address] [place], [place] 0304283 [employer] Operator: Khadar Tang MD Anion gap [Moles/Vol] 6 mmol/L Low 9-17 [facility] Comment on above: Performed By: #### T ROPI #### [facility] [address] [place], [place] 5392283 [employer] Operator: Khadar Tang MD AST [Catalytic activity/Vol] 10 U/L Normal <40 [facility] Comment on above: Performed By: #### T ROPI #### [facility] [address] [place], [place] 5840883 [employer] Operator: Khadar Tang MD Bilirubin [Mass/Vol] 0.3 mg/dL Normal 0.3-1.2 [facility] Comment on above: Performed By: #### T ROPI #### [facility] [address] [place], [place] 2227483 [employer] Operator: Khadar Tang MD BUN/CRE Ratio 20 Normal 9-20 [facility] Comment on above: Performed By: #### T ROPI #### [facility] [address] [place], [place] 5254783 [employer] Operator: Khadar Tang MD Calcium [Mass/Vol] 8.7 mg/dL Normal 8.6-10.4 [facility] Comment on above: Performed By: #### T ROPI #### [facility] [address] [place], [place] 5882383 [employer] Operator: Khadar Tang MD Chloride [Moles/Vol] 113 mmol/L High 98-107 [facility] Comment on above: Performed By: #### T ROPI #### [facility] [address] [place] [address] [employer] Operator: Khadar Tang MD CO2 [Moles/Vol] 20 mmol/L Normal 20-31 [facility] Comment on above: Performed By: #### T ROPI #### [facility] [address] [place] [address] Nu[employer] Operator: Khadar Tang MD Creatinine [Mass/Vol] 0.97 mg/dL Normal 0.70-1.20 [facility] Comment on above: Performed By: #### T ROPI #### [facility] [address] [place] [address] [employer] Operator: Khadar Tang MD GFR/1.73 sq M.predicted among non-blacks MDRD (S/P/Bld) [Vol rate/Area] mL/min/{1.73_m2} Normal >60 [facility] Comment on above: Result Comment: These results are not intended for use in patients <18 years of age. eGFR results are calculated without a race factor using the 2020 CKD-EPI equation. Careful clinical correlation is recommended, particularly when comparing to results calculated using previous equations. The CKD-EPI equation is less accurate in patients with extremes of muscle mass, extra-renal metabolism of creatine, excessive creatine ingestion, or following therapy that affects renal tubular secretion. Performed By: #### T ROPI #### [facility] [address] [place] [address] [employer] Operator: Khadar Tang MD Glucose [Mass/Vol] 144 mg/dL High 70-99 [facility] Comment on above: Performed By: #### T ROPI #### [facility] [address] [place] [address] Nu[employer] Operator: Khadar Tang MD Potassium [Moles/Vol] 4.5 mmol/L Normal 3.7-5.3 [facility] Comment on above: Performed By: #### T ROPI #### [facility] [address] [place] [address] [employer] Operator: Khadar Tang MD Protein [Mass/Vol] 6.7 g/dL Normal 6.4-8.3 [facility] Comment on above: Performed By: #### T ROPI #### [facility] [address] [place] [address] [employer] Operator: Khadar Tang MD Sodium [Moles/Vol] 139 mmol/L Normal 135-144 [facility] Comment on above: Performed By: #### T ROPI #### [facility] [address] [place] [address] [employer] Operator: Khadar Tang MD Urea nitrogen [Mass/Vol] 19 mg/dL Normal 8-23 [facility] Comment on above: Performed By: #### T ROPI #### [facility] [address] [place] [address] [employer] Operator: Khadar Tang MD Comprehensive Metabolic Pane l w/ Reflex to MGon 06-25-2022 Albumin [Mass/Vol] 2.8 g/dL Low 3.5 - 5.2 g/dL [facility] Albumin/Globulin [Mass ratio] 0.7 {ratio} Low 1.0 - 2.5 [facility] ALP [Catalytic activity/Vol] 75 U/L 40 - 129 U/L [facility] ALT [Catalytic activity/Vol] 9 U/L 5 - 41 U/L [facility] Anion gap [Moles/Vol] 6 mmol/L Low 9 - 17 mmol/L [facility] AST [Catalytic activity/Vol] 10 U/L NINF - 40 U/L [facility] Bilirubin [Mass/Vol] 0.3 mg/dL 0.3 - 1.2 mg/dL [facility] Calcium [Mass/Vol] 8.7 mg/dL 8.6 - 10. 4 mg/dL [facility] Chloride [Moles/Vol] 113 mmol/L High 98 - 107 mmol/L [facility] CO2 [Moles/Vol] 20 mmol/L 20 - 31 mmol/L [facility] Creatinine [Mass/Vol] 0.97 mg/dL 0.70 - 1.20 mg/dL [facility] GFR/1.73 sq M.predicted MDRD (S/P/Bld) [Vol rate/Area] - PINF [facility] Comment on above: These results are not intended for use in patients <18 years of age. eGFR results are calculated without a race factor using the 2020 CKD-EPI equation. Careful clinical correlation is recommended, particularly when comparing to results calculated using previous equations. The CKD-EPI equation is less accurate in patients with extremes of muscle mass, extra-renal metabolism of creatine, excessive creatine ingestion, or following therapy that affects renal tubular secretion. Glucose [Mass/Vol] 144 mg/dL High 70 - 99 mg/dL [facility] Interpretation and review of laboratory results Abnormal [facility] Potassium [Moles/Vol] 4.5 mmol/L 3.7 - 5.3 mmol/L [facility] Protein [Mass/Vol] 6.7 g/dL 6.4 - 8.3 g/dL [facility] Sodium [Moles/Vol] 139 mmol/L 135 - 144 mmol/L [facility] Urea nitrogen [Mass/Vol] 19 mg/dL 8 - 23 mg/dL [facility] Urea nitrogen/Creatinin e (Bld) [Mass ratio] 20 9 - 20 [facility] Cult,Woundon 06-25-2022 Cult,Wound Specimen Description .BUTTOCK Direct Exam FEW NEUTROPHILS MODERATE GRAM POSITIVE COCCI IN PAIRS MODERATE GRAM POSITIVE RODS Culture NORMAL SKIN ROBBIE Report Status FINAL 06/25/2022 Normal [facility] Comment on above: Performed By: #### T BRENDA #### [facility] [place] [address] [employer] Operator: Khadar Tang MD EKG Rhythm Stripon [address] [facility] Occult Blood, Fecalon 2022 Occult Blood 1 Negative Normal NEG [facility] Comment on above: Performed By: #### C MPX, CDP #### [facility] [address] [place] [address] Dr. [place], [place] [id number] [employer] Operator: Khadar Tang MD Specimen 1 Date [facility] Comment on above: Result Comment: Performed By: #### C MPX, CDP #### [facility] [address] [place] [address] [employer] Operator: Khadar Tang MD Specimen 1 Time 1944 [facility] Comment on above: Performed By: #### C MPX, CDP #### [address] [place], [place] 1607983 [employer] Operator: Khadar Tang MD Surgical Pathologyon 023 Surgical Pathology (NOTE) -- Diagnosis -- RIGHT ANKLE, FIBULAR MALLEOLUS, BONE, EXCISION: - BENIGN BONE WITH HYPOCELLULAR AND FOCALLY FIBROTIC MARROW. - BENIGN PERIOSTEAL TISSUE WITH REACTIVE FIBROSIS. - NEGATIVE FOR OSTEOMYELITIS AND NEOPLASIA. Dilan Salvador M.D. Electronically Signed Out 06/29/2022 Clinical Information Operative Findings: FIBULAR MALLEOLUS, RIGHT ANKLE tm Source of Specimen A: FIBULAR MALLEOLUS,RIGHT ANKLE Gross Description GANGA STINSON, DENGIGNTARUN Received in formalin is a 0.8 x 0.2 x 0.1 cm pardo, firm tissue fragment. Totally embedded 1c, decal. tm Microscopic Description Microscopic examination performed. SURGICAL PATHOLOGY CONSULTATION Patient Name: GANGA STINSON [facility] Rec: [id number] Path Number: [id number] [facility] [employer] [facility] ANATOMIC PATHOLOGY [address] [place] [id number] [facility] Comment on above: Performed By: #### C MPX, CDP #### [facility] [address] [place] [address] [place] [address] [employer] Operator: Khadar Tang MD TYPE AND SCREENon 06-25-2022 ABO/Rh Negative [facility] Arm Band Number [id number] [facility] Blood Bank Blood Product Expiration Date [id number] [facility] Blood Bank ISBT Product Blood Type 9500 [facility] Blood Bank Unit Type and Rh Negative [facility] Blood product type Nom (BPU) Leukocyte Reduced Red Cell RAIN [facility] Blood product unit ID (Dose) [#] [id number] [facility] Crossmatch Result [facility] Dispense Status TRANSFUSED RAIN [facility] Expiration Date 06/27/2022,2359 [facility] Product Code Blood Bank [id number] [facility] Transfusion Status OK TO TRANSFUSE B ON [facility] Unit Divison 0 [facility] Unit Issue Date/Time [id number] [facility] APTTon 06-24-2022 aPTT Coag (Bld) [Time] 35.6 s High 26.8-34.8 [facility] Comment on above: Result Comment: IV Heparin Therapy Range: 62.0-94.0 Performed By: #### C MPX, CDP #### [facility] [address] [place] [address] [place] [address] [employer] Operator: Khadar Tang MD B12/Folate Panelon Cobalamin (Vitamin B12) [Mass/Vol] 446 pg/mL Normal 232-1245 [facility] Comment on above: Performed By: #### C MPX, CDP #### [facility] [address] [place] [address] [place] [address] [employer] Operator: Khadar Tang MD Folic Acid 8.2 ng/mL Normal >4.8 [facility] Comment on above: Performed By: #### C MPX, CDP #### [facility] [address] [place] [address] Nuisance Wildlife Control Operator: Khadar Tang MD CBC auto differentialon 05-28 Absolute Eos # 0.46 High [facility] Absolute Immature Granulocyte 0.07 [facility] Absolute Lymph # 1.52 [facility] SECO URS [facility] Absolute Coos # 0.53 [facility] SEC[facility] RS [facility] Basophils (Bld) [#/Vol] 0.00 10*3/uL [facility] Hematocrit (Bld) [Volume fraction] 21.7 % Low 40.7 - 50.3 % [facility] Hemoglobin (Bld) [Mass/Vol] 6.6 g/dL Critically low 13.0 - 17.0 g/dL [facility] Interpretation and review of laboratory results Abnormal [facility] MCH (RBC) [Entitic mass] 23.4 pg Low 25.2 - 33.5 pg [facility] MCHC (RBC) [Mass/Vol] 30.4 g/dL 28.4 - 34.8 g/dL [facility] MCV (RBC) [Entitic vol] 77.0 fL Low 82.6 - 102.9 fL [facility] Morphology Álvaro (Bld) [Interp] HYPOCHROMIA PRESENT [facility] NRBC Automated 0.0 0.0 per 100 WBC [facility] Platelet distribution width (Bld) [Ratio] 16.2 % High 11.8 - 14.4 % [facility] Platelet mean volume (Bld) [Entitic vol] 8.9 fL 8.1 - 13.5 fL [facility] Platelets (Bld) [#/Vol] 208 10*3/uL [facility] RBC (Bld) [#/Vol] 2.82 10*6/uL Low 4.21 - 5.7 7 m/uL [facility] Segmented neutrophils/100 WBC (Bld) 61 % 36 - 65 % [facility] Segs Absolute 4.02 [facility] WBC (Bld) [#/Vol] 6.6 10*3/uL [facility] SE [facility] CBC with Diffon 06-24-2022 Abs. Basophil 0.00 k/uL Normal 0.0-0.2 [facility] Comment on above: Performed By: #### C MPX, CDP #### [facility] [address] [place] [address] Nuisance Wildlife Control Operator: Khadar Tang MD Abs.Imm.Granulocyt e 0.07 k/uL Normal 0.00-0.30 [facility] Comment on above: Performed By: #### C MPX, CDP #### [facility] [address] [place] [address] Nuisance Wildlife Control Operator: Khadar Tang MD Abs.Neutrophil (Seg) 4.02 k/uL Normal 1.50-8.10 [facility] Comment on above: Performed By: #### C MPX, CDP #### [address] [place] [address] Nuisance Wildlife Control Operator: Khadar Tang MD Eosinophils (Bld) [#/Vol] 0.46 10*3/uL High 0.00-0.44 [facility] Comment on above: Performed By: #### C MPX, CDP #### [address] [place] [address] Nuisance Wildlife Control Operator: Khadar Tang MD Lymphocytes (Bld) [#/Vol] 1.52 10*3/uL Normal 1.10-3.70 [facility] Comment on above: Performed By: #### C MPX, CDP #### [facility] [address] [place] [address] [place] [place] [id number] Nuisance Wildlife Control Operator: Khadar Tang MD Monocytes (Bld) [#/Vol] 0.53 10*3/uL Normal 0.10-1.20 [facility] Comment on above: Performed By: #### C MPX, CDP #### [facility] [address] [place] [address] Nuisance Wildlife Control Operator: Khadar Tang MD Morphology Álvaro (Bld) [Interp] HYPOCHROMIA Normal [facility] Comment on above: Result Comment: PRES ENT Performed By: #### C MPX, CDP #### [facility] [address] [place], [place] [id number] Nuisance Wildlife Control Operator: Khadar Tang MD Neutrophil (Seg) 61 % Normal 36-65 [facility] Comment on above: Performed By: #### C MPX, CDP #### [facility] [address] [place], [place] [address]23383 Nuisance Wildlife Control Operator: Khadar Tang MD Erythrocyte distribution width (RBC) [Ratio] 16.2 % High 11.8-14.4 [facility] Comment on above: Performed By: #### C MPX, CDP #### [facility] [address] [place], [place] 8757183 Nuisance Wildlife Control Operator: Khadar Tang MD Hematocrit (Bld) [Volume fraction] 21.7 % Low 40.7-50.3 [facility] Comment on above: Performed By: #### C MPX, CDP #### [address] [place], [place] [id number] Nuisance Wildlife Control Operator: Khadar Tang MD Hemoglobin (Bld) [Mass/Vol] 6.6 g/dL Critically low 13.0-17.0 [facility] Comment on above: Performed By: #### C MPX, CDP #### [address] [place], [place] [id number] Nuisance Wildlife Control Operator: Khadar Tang MD MCH (RBC) [Entitic mass] 23.4 pg Low 25.2-33.5 [facility] Comment on above: Performed By: #### C MPX, CDP #### [address] [place] [address] [place] [address] Nuisance Wildlife Control Operator: Khadar Tang MD MCHC (RBC) [Mass/Vol] 30.4 g/dL Normal 28.4-34.8 [facility] Comment on above: Performed By: #### C MPX, CDP #### [facility] [address] [place], [place] [id number] Nuisance Wildlife Control Operator: Khadar Tang MD MCV (RBC) [Entitic vol] 77.0 fL Low 82.6-102.9 [facility] Comment on above: Performed By: #### C MPX, CDP #### [address] [place], [id number] Nuisance Wildlife Control Operator: Khadar Tang MD NRBC Automated 0.0 per 100 WBC Normal 0.0 [facility] Comment on above: Performed By: #### C MPX, CDP #### [address] [place] [address] [place] [address] Nuisance Wildlife Control Operator: Khadar Tang MD Platelet mean volume (Bld) [Entitic vol] 8.9 fL Normal 8.1-13.5 [facility] Comment on above: Performed By: #### C MPX, CDP #### [address] [place], [id number] Nuisance Wildlife Control Operator: Khadar Tang MD Platelets (Bld) [#/Vol] 208 10*3/uL Normal 138-453 [facility] Comment on above: Performed By: #### C MPX, CDP #### [address] [place], [place] [id number] Nuisance Wildlife Control Operator: Khadar Tang MD RBC (Bld) [#/Vol] 2.82 10*6/uL Low 4.21-5.77 [facility] Comment on above: Performed By: #### C MPX, CDP #### [address] [place] [address] [place] [address] Nuisance Wildlife Control Operator: Khadar Tang MD WBC (Bld) [#/Vol] 6.6 10*3/uL Normal 3.5-11.3 [facility] Comment on above: Performed By: #### C MPX, CDP #### [facility] [address] [place], [place] 0568483 Nuisance Wildlife Control Operator: Khadar Tang MD Basophils/100 WBC (Bld) 0 % Normal 0-2 [facility] Comment on above: Performed By: #### C MPX, CDP #### [facility] [address] [place], [place] [id number] Nuisance Wildlife Control Operator: Khadar Tang MD Eosinophils/100 WBC (Bld) 7 % High 1-4 [facility] Comment on above: Performed By: #### C MPX, CDP #### [address] [place], [place] 467[address]83 Nuisance Wildlife Control Operator: Khadar Tang MD Immature granulocytes/100 WBC (Bld) 1 % High 0 [facility] Comment on above: Performed By: #### C MPX, CDP #### [address] [place], [place] 3375983 Nuisance Wildlife Control Operator: Khadar Tang MD Lymphocytes/100 WBC (Bld) 23 % Low 24-43 [facility] Comment on above: Performed By: #### C MPX, CDP #### [address] [place], [place] 0301983 Nuisance Wildlife Control Operator: Khadar Tang MD Monocytes/100 WBC (Bld) 8 % Normal 3-12 [facility] Comment on above: Performed By: #### C MPX, CDP #### [facility] [address] [place] [address] [address]. [place], [place] [phone] Nuisance Wildlife Control Operator: Khadar Tang MD Comp Metabolic Pr/rfx MGon 0 06-24-2022 Albumin [Mass/Vol] 2.4 g/dL Low 3.5-5.2 [facility] Comment on above: Performed By: #### C MPX, CDP #### [facility] [address] [place] [address] [place] [address] Nuisance Wildlife Control Operator: Khadar Tang MD Albumin/Glob Ratio 0.6 Low 1.0-2.5 [facility] Comment on above: Performed By: #### C MPX, CDP #### [facility] [address] [place], [place] [address]83 Nuisance Wildlife Control Operator: Khadar Tang MD Alkaline Phos 75 U/L Normal 40-129 [facility] Comment on above: Performed By: #### C MPX, CDP #### [facility] [address] [place], [place] [id number] Nuisance Wildlife Control Operator: Khadar Tang MD ALT [Catalytic activity/Vol] 9 U/L Normal 5-41 [facility] Comment on above: Performed By: #### C MPX, CDP #### [facility] [address] [place], [place] 5402383 Nuisance Wildlife Control Operator: Khadar Tang MD Anion gap [Moles/Vol] 7 mmol/L Low 9-17 [facility] Comment on above: Performed By: #### C MPX, CDP #### [facility] [address] [place], [place] 3073183 Nuisance Wildlife Control Operator: Khadar Tang MD AST [Catalytic activity/Vol] 11 U/L Normal <40 [facility] Comment on above: Performed By: #### C MPX, CDP #### [facility] [address] [place], [place] 5544383 Nuisance Wildlife Control Operator: Khadar Tang MD Bilirubin [Mass/Vol] mg/dL Low 0.3-1.2 [facility] Comment on above: Performed By: #### C MPX, CDP #### [facility] [address] [place] [address] [place] [address] Nuisance Wildlife Control Operator: Khadar Tang MD BUN/CRE Ratio 23 High 9-20 [facility] Comment on above: Performed By: #### C MPX, CDP #### [facility] [address] [place] [address] [place] [address] Nuisance Wildlife Control Operator: Khadar Tang MD Calcium [Mass/Vol] 8.5 mg/dL Low 8.6-10.4 [facility] Comment on above: Performed By: #### C MPX, CDP #### [facility] [address] [place], [place] 469[address]83 Nuisance Wildlife Control Operator: Khadar Tang MD Chloride [Moles/Vol] 115 mmol/L High 98-107 [facility] Comment on above: Performed By: #### C MPX, CDP #### [facility] [address] [place] [address] [place] [address] Nuisance Wildlife Control Operator: Khadar Tang MD CO2 [Moles/Vol] 18 mmol/L Low 20-31 [facility] Comment on above: Performed By: #### C MPX, CDP #### [facility] [address] [place] [address] [place] [address] Nuisance Wildlife Control Operator: Khadar Tang MD Creatinine [Mass/Vol] 1.11 mg/dL Normal 0.70-1.20 [facility] Comment on above: Performed By: #### C MPX, CDP #### [facility] [address] [place] [address] [place] [address] Nuisance Wildlife Control Operator: Khadar Tang MD GFR/1.73 sq M.predicted among non-blacks MDRD (S/P/Bld) [Vol rate/Area] mL/min/{1.73_m2} Normal >60 [facility] Comment on above: Result Comment: These results are not intended for use in patients <18 years of age. eGFR results are calculated without a race factor using the 2020 CKD-EPI equation. Careful clinical correlation is recommended, particularly when comparing to results calculated using previous equations. The CKD-EPI equation is less accurate in patients with extremes of muscle mass, extra-renal metabolism of creatine, excessive creatine ingestion, or following therapy that affects renal tubular secretion. Performed By: #### C MPX, CDP #### [facility] [address] [place], [place] 1278383 Nuisance Wildlife Control Operator: Khadar Tang MD Glucose [Mass/Vol] 137 mg/dL High 70-99 [facility] Comment on above: Performed By: #### C MPX, CDP #### [facility] [address] [place], [place] [address]83 Nuisance Wildlife Control Operator: Khadar Tang MD Potassium [Moles/Vol] 4.9 mmol/L Normal 3.7-5.3 [facility] Comment on above: Performed By: #### C MPX, CDP #### [facility] [address] [place] [address] [place] [address] Nuisance Wildlife Control Operator: Khadar Tang MD Protein [Mass/Vol] 6.3 g/dL Low 6.4-8.3 [facility] Comment on above: Performed By: #### C MPX, CDP #### [facility] [address] [place], [place] [address]83 Nuisance Wildlife Control Operator: Khadar Tang MD Sodium [Moles/Vol] 140 mmol/L Normal 135-144 [facility] Comment on above: Performed By: #### C MPX, CDP #### [facility] [address] [place], [place] [address]19283 Nuisance Wildlife Control Operator: Khadar Tang MD Urea nitrogen [Mass/Vol] 26 mg/dL High 8-23 [facility] Comment on above: Performed By: #### C MPX, CDP #### [facility] [address] [place] [address] Nuisance Wildlife Control Operator: Khadar Tang MD Comprehensive Metabolic Pane l w/ Reflex to MGon 06-24-2022 Albumin [Mass/Vol] 2.4 g/dL Low 3.5 - 5.2 g/dL [facility] Albumin/Globulin [Mass ratio] 0.6 {ratio} Low 1.0 - 2.5 [facility] ALP [Catalytic activity/Vol] 75 U/L 40 - 129 U/L [facility] ALT [Catalytic activity/Vol] 9 U/L 5 - 41 U/L [facility] Anion gap [Moles/Vol] 7 mmol/L Low 9 - 17 mmol/L [facility] AST [Catalytic activity/Vol] 11 U/L NINF - 40 U/L [facility] Bilirubin [Mass/Vol] mg/dL Low 0.3 - 1.2 mg/dL [facility] Calcium [Mass/Vol] 8.5 mg/dL Low 8.6 - 10. 4 mg/dL [facility] Chloride [Moles/Vol] 115 mmol/L High 98 - 107 mmol/L [facility] CO2 [Moles/Vol] 18 mmol/L Low 20 - 31 mmol/L [facility] Creatinine [Mass/Vol] 1.11 mg/dL 0.70 - 1.20 mg/dL [facility] GFR/1.73 sq M.predicted MDRD (S/P/Bld) [Vol rate/Area] - PINF [facility] Comment on above: These results are not intended for use in patients <18 years of age. eGFR results are calculated without a race factor using the 2020 CKD-EPI equation. Careful clinical correlation is recommended, particularly when comparing to results calculated using previous equations. The CKD-EPI equation is less accurate in patients with extremes of muscle mass, extra-renal metabolism of creatine, excessive creatine ingestion, or following therapy that affects renal tubular secretion. Glucose [Mass/Vol] 137 mg/dL High 70 - 99 mg/dL [facility] Interpretation and review of laboratory results Abnormal [facility] Potassium [Moles/Vol] 4.9 mmol/L 3.7 - 5.3 mmol/L [facility] Protein [Mass/Vol] 6.3 g/dL Low 6.4 - 8.3 g/dL [facility] Sodium [Moles/Vol] 140 mmol/L 135 - 144 mmol/L [facility] Urea nitrogen [Mass/Vol] 26 mg/dL High 8 - 23 mg/dL [facility] Urea nitrogen/Creatinin e (Bld) [Mass ratio] 23 High 9 - 20 [facility] Culture, Wound Aerobic Onlyo n 06-24-2022 Interpretation and review of laboratory results Abnormal [employer] Microorganism identified Cx Nom (Unsp spec) NORMAL SKIN ROBBIE [employer] Microorganism or agent identified Nom (Unsp spec) FEW NEUTROPHILS Abnormal [employer] Specimen Description .BUTTOCK RAIN EUDOWEB RAIN EUDOWEB EKG 12 Leadon 06-24-2022 Atrial Rate 64 BPM RAIN EUDOWEB Work Phone: P Paragon 51 degrees RAIN EUDOWEB Work Phone: P-R Interval 174 ms RAIN EUDOWEB Work Phone: Q-T Interval 394 ms [employer] Work Phone: QRS Duration 94 ms RAIN EUDOWEB Work Phone: QTc Calculation (Bazett) 406 ms RAIN EUDOWEB Work Phone: R Paragon 20 degrees [employer] Work Phone: T Paragon 22 degrees [employer] Work Phone: Ventricular Rate 64 BPM RAIN Boxbe[employer] WILLIAM [employer] Work Phone: Normal sinus rhythm Inferior infarct , age undetermined Abnormal ECG When compared with ECG of 22-JUN-2022 17:28, Minimal criteria for Inferior infarct is now Present Confirmed by Michelle Noe MD ([id number]) on 06/24/2022 10:31:37 PM [facility] RADI[facility] Michelle Noe MD - 06/24/2022 Normal sinus rhythm Inferior infarct , age undetermined Abnormal ECG When compared with ECG of 22-JUN-2022 17:28, Minimal criteria for Inferior infarct is now Present Confirmed by Michelle Noe MD ([id number]) on 06/24/2022 10:31:37 PM RAIN EUDOWEB Work Phone: [employer] Work Phone: EKG Rhythm Stripon [address] [facility] [address] [facility] Echocardiogram complete 2D w ith doppler with coloron 06-24-2022 Left ventricular Ejection fraction 60 [facility] Work Phone: LVEF MODALITY ECHO [facility] Work Phone: [facility] Transthoracic Echocardiography Report (TTE) Patient Name ALLOWAY Date of Study 06/24/2022 GANGA Evans Date of 1960 Gender Male Age 61 year(s) Race Room Number 0334 Height: 71 inch, 180.34 cm Corporate ID [id number] Weight: 252 pounds, 114.3 kg # Patient Acct [id number] BSA: 2.33 m^2 BMI: 35.15 kg/m^2 # MR # [id number] Graphic Art Technician Jeanette Clarke Interpreting Physician Michelle Noe Fellow Referring Nurse Shelly Mondragon, Practitioner DOLLY Interpreting Referring Physician Fellow Type of Study TTE procedure:2D Echocardiogram, M-Mode, Doppler, Color Doppler. Procedure Date Date: 06/24/2022 Start: 09:47 AM Study Location: [facility] Indications:Abnormal ECG. History / Tech. Comments: Abn ekg PMHX: HTN, DM Patient Status: Inpatient Height: 71 inches Weight: 252 pounds BSA: 2.33 m^2 BMI: 35.15 kg/m^2 BP: 128/70 mmHg CONCLUSIONS Summary Global left ventricular systolic function appears preserved with an estimated ejection fraction of 60%. The left ventricular cavity size is within normal limits and the left ventricular wall thickness is mildly increased. No definite specific wall motion abnormalities were identified. No significant valvular abnormalities. Evidence of mild (grade I) diastolic dysfunction is seen. No prior studies were available for comparison. Signature FINDINGS Left Atrium The left atrium is moderately dilated (34-39) with a left atrial volume index of 35 ml/m2. Left Ventricle Global left ventricular systolic function appears preserved with an estimated ejection fraction of 60%. The left ventricular cavity size is within normal limits and the left ventricular wall thickness is mildly increased. No definite specific wall motion abnormalities were identified. Right Atrium Right atrium is normal in size. Right Ventricle Normal right ventricular size and function. Mitral Valve Normal mitral valve structure and function. Aortic Valve Normal aortic valve structure and function without stenosis or regurgitation. Tricuspid Valve Normal tricuspid valve structure and function. Pulmonic Valve The pulmonic valve is normal in structure. Pericardial Effusion No pericardial effusion seen. Miscellaneous Evidence of mild (grade I) diastolic dysfunction is seen. Normal aortic root dimension. M-mode / 2D Measurements & Calculations: LVIDd:5.4 cm(3.7 - 5.6 cm) Diastolic Volume:157.06 ml LVIDs:3.92 cm(2.2 - 4.0 cm) Systolic Volume:60.34 ml IVSd:1.33 cm(0.6 - 1.1 cm) Aortic Root:3.44 cm(2.0 - 3.7 cm) LVPWd:1.3 cm(0.6 - 1.1 cm) LA Dimension: 4.84 cm(1.9 - 4.0 cm) Fractional Shortenin.41 % LA volume/Index: 82 ml /35m^2 Calculated LVEF (%): 61.58 % AV Cusp Separation: 2.04 cm Mitral: Aortic Valve Area (P1/2-Time): 3.61 cm^2 Peak Velocity: 1.59 m/s Peak E-Wave: 1.11 m/s Mean Velocity: 1.01 m/s Peak A-Wave: 0.91 m/s Peak Gradient: 10.1 mmHg E/A Ratio: 1.22 Mean Gradient: 4.83 mmHg Peak Gradient: 4.93 mmHg Acceleration Time: 103.6 msec P1/2t: 60.89 msec AV VTI: 35.17 cm Diastology / Tissue Doppler Lateral Wall E' velocity:0.13 m/s Lateral Wall E/E':9.8 MH LVEF Michelle Noe MD / Result, Unknown Provider - 06/24/2022 [facility] Transthoracic Echocardiography Report (TTE) Patient Name ALLOWAY Date of Study 06/24/2022 GANGA Evans Date of 1960 Gender Male Age 61 year(s) Race Room Number 0334 Height: 71 inch, 180.34 cm Corporate ID [id number] Weight: 252 pounds, 114.3 kg # Patient Acct [id number] BSA: 2.33 m^2 BMI: 35.15 kg/m^2 # MR # [id number] Graphic Art Technician Jeanette Clarke Interpreting Physician Michelle Noe Fellow Referring Nurse Shelly Mondragon, Practitioner DOLLY Interpreting Referring Physician Fellow Type of Study TTE procedure:2D Echocardiogram, M-Mode, Doppler, Color Doppler. Procedure Date Date: 06/24/2022 Start: 09:47 AM Study Location: [facility] Indications:Abnormal ECG. History / Tech. Comments: Abn ekg PMHX: HTN, DM Patient Status: Inpatient Height: 71 inches Weight: 252 pounds BSA: 2.33 m^2 BMI: 35.15 kg/m^2 BP: 128/70 mmHg CONCLUSIONS Summary Global left ventricular systolic function appears preserved with an estimated ejection fraction of 60%. The left ventricular cavity size is within normal limits and the left ventricular wall thickness is mildly increased. No definite specific wall motion abnormalities were identified. No significant valvular abnormalities. Evidence of mild (grade I) diastolic dysfunction is seen. No prior studies were available for comparison. Signature - - - - FINDINGS Left Atrium The left atrium is moderately dilated (34-39) with a left atrial volume index of 35 ml/m2. Left Ventricle Global left ventricular systolic function appears preserved with an estimated ejection fraction of 60%. The left ventricular cavity size is within normal limits and the left ventricular wall thickness is mildly increased. No definite specific wall motion abnormalities were identified. Right Atrium Right atrium is normal in size. Right Ventricle Normal right ventricular size and function. Mitral Valve Normal mitral valve structure and function. Aortic Valve Normal aortic valve structure and function without stenosis or regurgitation. Tricuspid Valve Normal tricuspid valve structure and function. Pulmonic Valve The pulmonic valve is normal in structure. Pericardial Effusion No pericardial effusion seen. Miscellaneous Evidence of mild (grade I) diastolic dysfunction is seen. Normal aortic root dimension. M-mode / 2D Measurements & Calculations: LVIDd:5.4 cm(3.7 - 5.6 cm) Diastolic Volume:157.06 ml LVIDs:3.92 cm(2.2 - 4.0 cm) Systolic Volume:60.34 ml IVSd:1.33 cm(0.6 - 1.1 cm) Aortic Root:3.44 cm(2.0 - 3.7 cm) LVPWd:1.3 cm(0.6 - 1.1 cm) LA Dimension: 4.84 cm(1.9 - 4.0 cm) Fractional Shortenin.41 % LA volume/Index: 82 ml /35m^2 Calculated LVEF (%): 61.58 % AV Cusp Separation: 2.04 cm Mitral: Aortic Valve Area (P1/2-Time): 3.61 cm^2 Peak Velocity: 1.59 m/s Peak E-Wave: 1.11 m/s Mean Velocity: 1.01 m/s Peak A-Wave: 0.91 m/s Peak Gradient: 10.1 mmHg E/A Ratio: 1.22 Mean Gradient: 4.83 mmHg Peak Gradient: 4.93 mmHg Acceleration Time: 103.6 msec P1/2t: 60.89 msec AV VTI: 35.17 cm Diastology / Tissue Doppler Lateral Wall E' velocity:0.13 m/s Lateral Wall E/E':9.8 [employer] Work Phone: [employer] Work Phone: Glucose, Whole Bloodon 06-24 Glucose [Mass/Vol] 114 mg/dL High 74 - 100 mg/dL [facility] Interpretation and review of laboratory results Abnormal [facility] Hemoglobin and Hematocriton 06-24-2022 Hematocrit (Bld) [Volume fraction] 25.1 % Low 40.7 - 50.3 % [facility] Hemoglobin (Bld) [Mass/Vol] 7.8 g/dL Low 13.0 - 17.0 g/dL [facility] Interpretation and review of laboratory results Abnormal [facility] Hgb/Hcton 06-24-2022 Hematocrit (Bld) [Volume fraction] 25.1 % Low 40.7-50.3 [facility] Comment on above: Performed By: #### C MPX, CDP #### [facility] [address] [place] [address] [place] [address] Nuisance [employer] Operator: Khadar Tang MD Hemoglobin (Bld) [Mass/Vol] 7.8 g/dL Low 13.0-17.0 [facility] Comment on above: Performed By: #### C MPX, CDP #### [facility] [address] [place] [address] [place] [address] [employer] Operator: Khadar Tang MD Iron Binding Cap.on 06-25-19 23 % Fe Saturation 19 % Low 20-55 [facility] Comment on above: Performed By: #### C MPX, CDP #### [facility] [facility] [address] [place] [address] [employer] Operator: Khadar Tang MD Iron [Mass/Vol] 33 ug/dL Low 59-158 [facility] Comment on above: Performed By: #### C MPX, CDP #### [facility] [address] [place] [address] [employer] Operator: Khadar Tang MD Total Fe Binding Cap 175 ug/dL Low 250-450 [facility] Comment on above: Performed By: #### C MPX, CDP #### [facility] [address] [place] [address] [employer] Operator: Khadar Tang MD Unbound Fe Bind Cap 142 ug/dL Normal 112-347 [facility] Comment on above: Performed By: #### C MPX, CDP #### [facility] [address] [place] [address] [employer] Operator: Khadar Tang MD Iron and TIBCon 06-24-2022 Interpretation and review of laboratory results Abnormal [facility] Iron [Mass/Vol] 33 ug/dL Low 59 - 158 ug/dL [facility] Iron binding capacity [Mass/Vol] 175 ug/dL Low 250 - 450 ug/dL [facility] Iron Saturation 19 % Low 20 - 55 % [facility] UIBC 142 ug/dL 112 - 347 ug/dL [facility] Laboratory - Microbiology an d Antimicrobial susceptibilityon 06-24-2022 Microorganism or agent identified Nom (Unsp spec) Positive Abnormal [facility] Lipid Panelon 06-24-2022 Cholesterol [Mass/Vol] 147 mg/dL NINF - 200 mg/dL [facility] Comment on above: Cholesterol Guidelines: <200 Desirable 200-240 Borderline >240 Undesirable Cholesterol in HDL [Mass/Vol] 28 mg/dL Low 40 - PINF mg/dL [facility] Comment on above: HDL Guidelines: <40 Undesirable 40-59 Borderline >59 Desirable Cholesterol in LDL [Mass/Vol] 98 mg/dL 0 - 130 mg/dL [facility] Comment on above: LDL Guidelines: <100 Desirable 100-129 Near to/above Desirable 130-159 Borderline >159 Undesirable Direct (measured) LDL and calculated LDL are not interchangeable tests. Cholesterol.total/ Cholesterol in HDL [Mass ratio] 5.3 {ratio} High NINF - 5 [facility] Interpretation and review of laboratory results Abnormal [facility] Triglyceride [Mass/Vol] 107 mg/dL NINF - 150 mg/dL [facility] Comment on above: Triglyceride Guidelines: <150 Desirable 150-199 Borderline 200-499 High >499 Very high Based on AHA Guidelines for fasting triglyceride, December 2011. [facility] Lipid Profileon 06-24-2022 Cholesterol [Mass/Vol] 147 mg/dL Normal <200 [facility] Comment on above: Result Comment: Cholesterol Guidelines: <200 Desirable 200-240 Borderline >240 Undesirable Performed By: #### T ROPI #### [facility] [address] [place], [place] [id number] [employer] Operator: Khadar Tang MD Cholesterol in HDL [Mass/Vol] 28 mg/dL Low >40 [facility] Comment on above: Result Comment: HDL Guidelines: <40 Undesirable 40-59 Borderline >59 Desirable Performed By: #### T ROPI #### [facility] [address] [place], [place] [id number] [employer] Operator: Khadar Tang MD Cholesterol in LDL [Mass/Vol] 98 mg/dL Normal 0-130 [facility] Comment on above: Result Comment: LDL Guidelines: <100 Desirable 100-129 Near to/above Desirable 130-159 Borderline >159 Undesirable Direct (measured) LDL and calculated LDL are not interchangeable tests. Performed By: #### T ROPI #### [facility] [address] [place] [address] [place] [address] [employer] Operator: Khadar Tang MD Cholesterol.total/ Cholesterol in HDL [Mass ratio] 5.3 {ratio} High <5 [facility] Comment on above: Performed By: #### T ROPI #### [facility] [address] [place] [address] [place] [address] [employer] Operator: Khadar Tang MD Triglyceride [Mass/Vol] 107 mg/dL Normal <150 [facility] Comment on above: Result Comment: Triglyceride Guidelines: <150 Desirable 150-199 Borderline 200-499 High >499 Very high Based on AHA Guidelines for fasting triglyceride, December 2011. Performed By: #### T ROPI #### [facility] [address] [place] [address] [place] [address] [employer] Operator: Khadar Tang MD PTon 06-24-2022 INR Coag (PPP) [Relative time] 1.1 {INR} Normal [facility] Comment on above: Result Comment: Therapeutic Range: Moderate Anticoagulant Intensity: INR = 2.0-3.0 High Anticoagulant Intensity: INR = 2.5-3.5 Performed By: #### C RICHX, CDP #### [facility] [address] [place] [address] [place] [address] [employer] Operator: Khadar Tang MD PT Coag (PPP) [Time] 14.8 s Normal 11.9-14.8 [facility] Comment on above: Performed By: #### C MPX, CDP #### [facility] [address] [place] [address] [place] [address] [employer] Operator: Khadar Tang MD PTTon 06-24-2022 aPTT Coag (Bld) [Time] 35.6 s High [facility] Comment on above: IV Heparin Therapy Range: 62.0-94.0 Interpretation and review of laboratory results Abnormal [facility] Protime-INRon 06-24-2022 INR Coag (PPP) [Relative time] 1.1 {INR} [facility] Comment on above: Therapeutic Range: Moderate Anticoagulant Intensity: INR = 2.0-3.0 High Anticoagulant Intensity: INR = 2.5-3.5 PT Coag (PPP) [Time] 14.8 s [facility] Troponinon 06-24-2022 Troponin, High Sens 57 ng/L Critically high 0-22 [facility] Comment on above: Result Comment: High Sensitivity Troponin values cannot be compared with other Troponin methodologies. Performed By: #### C MPX, CDP #### [facility] [address] [place] [address] [place] [address] [employer] Operator: Khadar Tang MD Interpretation and review of laboratory results Abnormal [facility] Troponin I.cardiac DL <= 0.01 ng/mL [Mass/Vol] 57 ng/L Critically high 0 - 22 ng/L [facility] Comment on above: High Sensitivity Tro ponin values cannot be compared with other Troponin methodologies. [facility] Troponin, High Sens 58 ng/L Critically high 0-22 [facility] Comment on above: Result Comment: High Sensitivity Troponin values cannot be compared with other Troponin methodologies. Performed By: #### T ROPI #### [facility] [address] [place] [address] [employer] Operator: Khadar Tang MD Interpretation and review of laboratory results Abnormal [facility] Troponin I.cardiac DL <= 0.01 ng/mL [Mass/Vol] 58 ng/L Critically high 0 - 22 ng/L [facility] Comment on above: High Sensitivity Tro ponin values cannot be compared with other Troponin methodologies. [facility] Troponin, High Sens 59 ng/L Critically high 0-22 [facility] Comment on above: Result Comment: High Sensitivity Troponin values cannot be compared with other Troponin methodologies. Performed By: #### C MPX, CDP #### [facility] [address] [place] [address] [employer] Operator: Khadar Tang MD Interpretation and review of laboratory results Abnormal [facility] Troponin I.cardiac DL <= 0.01 ng/mL [Mass/Vol] 59 ng/L Critically high 0 - 22 ng/L [facility] Comment on above: High Sensitivity Tro ponin values cannot be compared with other Troponin methodologies. [facility] Type + Screenon 06-24-2022 Type + Screen Sample Expiration 06/27/2022,2359 Arm Band Number [id number] ABO/Rh(D) A NEGATIVE Antibody Screen NEGATIVE Unit Number [id number] Blood Component Type Leukocyte Reduced Red Cell Unit Division 00 Status of Unit TRANSFUSED Transfusion Status OK TO TRANSFUSE Crossmatch Result COMPATIBLE Normal [facility] Comment on above: Performed By: #### C MPX, CDP #### [facility] [address] [place] [address] [employer] Operator: Khadar Tang MD Vitamin B12 & Folateon 06-24 Cobalamin (Vitamin B12) [Mass/Vol] 446 pg/mL 232 - 1245 pg/mL [facility] Folate [Mass/Vol] 8.2 ng/mL 4.8 - PINF ng/mL [facility] CBC auto differentialon 05-28 Absolute Eos # 0.65 [facility] Absolute Immature Granulocyte 0.06 [facility] Absolute Lymph # 1.94 [facility] Absolute Coos # 0.72 [facility] Basophils (Bld) [#/Vol] 0.04 10*3/uL [facility] Basophils/100 WBC (Bld) 0 % 0 - 2 % [facility] Eosinophils/100 WBC (Bld) 7 % High 1 - 4 % [facility] Hematocrit (Bld) [Volume fraction] 25.0 % Low 40.7 - 50.3 % [facility] Hemoglobin (Bld) [Mass/Vol] 7.5 g/dL Low 13.0 - 17.0 g/dL [facility] Immature granulocytes/100 WBC (Bld) 1 % High 0 [facility] Interpretation and review of laboratory results Abnormal [facility] Lymphocytes/100 WBC (Bld) 22 % Low 24 - 43 % [facility] MCH (RBC) [Entitic mass] 23.3 pg Low 25.2 - 33.5 pg [facility] MCHC (RBC) [Mass/Vol] 30.0 g/dL 28.4 - 34.8 g/dL [facility] MCV (RBC) [Entitic vol] 77.6 fL Low 82.6 - 102.9 fL [facility] Monocytes/100 WBC (Bld) 8 % 3 - 12 % [facility] NRBC Automated 0.0 0.0 per 100 WBC [facility] Platelet distribution width (Bld) [Ratio] 16.4 % High 11.8 - 14.4 % [facility] Platelet mean volume (Bld) [Entitic vol] 8.7 fL 8.1 - 13.5 fL [facility] Platelets (Bld) [#/Vol] 263 10*3/uL [facility] RBC (Bld) [#/Vol] 3.22 10*6/uL Low 4.21 - 5.7 7 m/uL [facility] Segmented neutrophils/100 WBC (Bld) 62 % 36 - 65 % [facility] Segs Absolute 5.55 [facility] WBC (Bld) [#/Vol] 9.0 10*3/uL [facility] CBC with Diffon 06-23-2022 Abs. Basophil 0.04 k/uL Normal 0.00-0.20 [facility] Comment on above: Performed By: #### C MPX, CDP #### [facility] [address] [place] [address] [place] [address] [employer] Operator: Khadar Tang MD Abs.Imm.Granulocyt e 0.06 k/uL Normal 0.00-0.30 [facility] Comment on above: Performed By: #### C MPX, CDP #### [address] [place], [place] [id number] [employer] Operator: Khadar Tang MD Abs.Neutrophil (Seg) 5.55 k/uL Normal 1.50-8.10 [facility] Comment on above: Performed By: #### C MPX, CDP #### [address] [place], [place] [address] [employer] Operator: Khadar Tang MD Basophils/100 WBC (Bld) 0 % Normal 0-2 [facility] Comment on above: Performed By: #### C MPX, CDP #### [facility] [address] [place] [address] [place] [address] [employer] Operator: Khadar Tang MD Eosinophils (Bld) [#/Vol] 0.65 10*3/uL High 0.00-0.44 [facility] Comment on above: Performed By: #### C MPX, CDP #### [facility] [address] [place] [address] [place] [address] [employer] Operator: Khadar Tang MD Eosinophils/100 WBC (Bld) 7 % High 1-4 [facility] Comment on above: Performed By: #### C MPX, CDP #### [facility] [address] [place], [place] [id number] [employer] Operator: Khadar Tang MD Erythrocyte distribution width (RBC) [Ratio] 16.4 % High 11.8-14.4 [facility] Comment on above: Performed By: #### C MPX, CDP #### [address] [place], [id number] [employer] Operator: Khadar Tang MD Hematocrit (Bld) [Volume fraction] 25.0 % Low 40.7-50.3 [facility] Comment on above: Performed By: #### C MPX, CDP #### [address] [place], [id number] [employer] Operator: Khadar Tang MD Hemoglobin (Bld) [Mass/Vol] 7.5 g/dL Low 13.0-17.0 [facility] Comment on above: Performed By: #### C MPX, CDP #### [address] [place], [place] [id number] [employer] Operator: Khadar Tang MD Immature granulocytes/100 WBC (Bld) 1 % High 0 [facility] Comment on above: Performed By: #### C MPX, CDP #### [address] [place], [id number] [employer] Operator: Khadar Tang MD Lymphocytes (Bld) [#/Vol] 1.94 10*3/uL Normal 1.10-3.70 [facility] Comment on above: Performed By: #### C MPX, CDP #### [address] [place] [address] [place] [address] [employer] Operator: Khadar Tang MD Lymphocytes/100 WBC (Bld) 22 % Low 24-43 [facility] Comment on above: Performed By: #### C MPX, CDP #### [address] [place], [place] [id number] [employer] Operator: Khadar Tang MD MCH (RBC) [Entitic mass] 23.3 pg Low 25.2-33.5 [facility] Comment on above: Performed By: #### C MPX, CDP #### [facility] [address] [place] [address] [place] [place], [place] [id number] [employer] Operator: Khadar Tang MD MCHC (RBC) [Mass/Vol] 30.0 g/dL Normal 28.4-34.8 [facility] Comment on above: Performed By: #### C MPX, CDP #### [address] [place] [address] [place] [address] [employer] Operator: Khadar Tang MD MCV (RBC) [Entitic vol] 77.6 fL Low 82.6-102.9 [facility] Comment on above: Performed By: #### C MPX, CDP #### [address] [place], [place] 6[address]883 [employer] Operator: Khadar Tang MD Monocytes (Bld) [#/Vol] 0.72 10*3/uL Normal 0.10-1.20 [facility] Comment on above: Performed By: #### C MPX, CDP #### [address] [place], [place] [id number] [employer] Operator: Khadar Tang MD Monocytes/100 WBC (Bld) 8 % Normal 3-12 [facility] Comment on above: Performed By: #### C MPX, CDP #### [address] [place], [place] [address] [employer] Operator: Khadar Tang MD Neutrophil (Seg) 62 % Normal 36-65 [facility] Comment on above: Performed By: #### C MPX, CDP #### [facility] [address] [place], [id number] [employer] Operator: Khadar Tang MD NRBC Automated 0.0 per 100 WBC Normal 0.0 [facility] Comment on above: Performed By: #### C MPX, CDP #### [address] [place] [address] [place] [address] [employer] Operator: Khadar Tang MD Platelet mean volume (Bld) [Entitic vol] 8.7 fL Normal 8.1-13.5 [facility] Comment on above: Performed By: #### C MPX, CDP #### [address] [place], [place] [id number] [employer] Operator: Khadar Tang MD Platelets (Bld) [#/Vol] 263 10*3/uL Normal 138-453 [facility] Comment on above: Performed By: #### C MPX, CDP #### [address] [place] [address] [place] [address] [employer] Operator: Khadar Tang MD RBC (Bld) [#/Vol] 3.22 10*6/uL Low 4.21-5.77 [facility] Comment on above: Performed By: #### C MPX, CDP #### [address] [place] [address] [place] [address] [employer] Operator: Khadar Tang MD WBC (Bld) [#/Vol] 9.0 10*3/uL Normal 3.5-11.3 [facility] Comment on above: Performed By: #### C MPX, CDP #### [address] [place] [address] [employer] Operator: Khadar Tang MD Comp Metabolic Pr/rfx MGon 0 06-23-2022 Albumin [Mass/Vol] 2.9 g/dL Low 3.5-5.2 [facility] Comment on above: Performed By: #### C MPX, CDP #### [address] [place] [address] [place] [address] [employer] Operator: Khadar Tang MD Albumin/Glob Ratio 0.7 Low 1.0-2.5 [facility] Comment on above: Performed By: #### C MPX, CDP #### [facility] [address] [place], [place] 0349[address] [employer] Operator: Khadar Tang MD Alkaline Phos 89 U/L Normal 40-129 [facility] Comment on above: Performed By: #### C MPX, CDP #### [facility] [address] [place], [place] [address] [employer] Operator: Khadar Tang MD ALT [Catalytic activity/Vol] 11 U/L Normal 5-41 [facility] Comment on above: Performed By: #### C MPX, CDP #### [facility] [address] [place], [place] [address]183 [employer] Operator: Khadar Tang MD Anion gap [Moles/Vol] 8 mmol/L Low 9-17 [facility] Comment on above: Performed By: #### C MPX, CDP #### [facility] [address] [place], [place] [address]83 [employer] Operator: Khadar Tang MD AST [Catalytic activity/Vol] 12 U/L Normal <40 [facility] Comment on above: Performed By: #### C MPX, CDP #### [facility] [address] [place], [place] 2228[address] [employer] Operator: Khadar Tang MD Bilirubin [Mass/Vol] 0.2 mg/dL Low 0.3-1.2 [facility] Comment on above: Performed By: #### C MPX, CDP #### [facility] [address] [place] [address] [place] [address] [employer] Operator: Khadar Tang MD BUN/CRE Ratio 25 High 9-20 [facility] Comment on above: Performed By: #### C MPX, CDP #### [facility] [address] [place] [address] [place] [address] [employer] Operator: Khadar Tang MD Calcium [Mass/Vol] 9.0 mg/dL Normal 8.6-10.4 [facility] Comment on above: Performed By: #### C MPX, CDP #### [facility] [address] [place], [place] [address]83 [employer] Operator: Khadar Tang MD Chloride [Moles/Vol] 115 mmol/L High 98-107 [facility] Comment on above: Performed By: #### C MPX, CDP #### [facility] [address] [place] [address] [place] [address] [employer] Operator: Khadar Tang MD CO2 [Moles/Vol] 17 mmol/L Low 20-31 [facility] Comment on above: Performed By: #### C MPX, CDP #### [facility] [address] [place] [address] [place]. [place], [place] [id number] [employer] Operator: Khadar Tang MD Creatinine [Mass/Vol] 1.55 mg/dL High 0.70-1.20 [facility] Comment on above: Performed By: #### C MPX, CDP #### [address] [place] [address] [place] [address] [employer] Operator: Khadar Tang MD GFR/1.73 sq M.predicted among non-blacks MDRD (S/P/Bld) [Vol rate/Area] 51 mL/min/{1.73_m2} Low >60 [facility] Comment on above: Result Comment: These results are not intended for use in patients <18 years of age. eGFR results are calculated without a race factor using the 2020 CKD-EPI equation. Careful clinical correlation is recommended, particularly when comparing to results calculated using previous equations. The CKD-EPI equation is less accurate in patients with extremes of muscle mass, extra-renal metabolism of creatine, excessive creatine ingestion, or following therapy that affects renal tubular secretion. Performed By: #### C MPX, CDP #### [facility] [address] [place], [place] [address] [employer] Operator: Khadar Tang MD Glucose [Mass/Vol] 119 mg/dL High 70-99 [facility] Comment on above: Performed By: #### C MPX, CDP #### [facility] [address] [place], [place] [address] [employer] Operator: Khadar Tang MD Potassium [Moles/Vol] 5.4 mmol/L High 3.7-5.3 [facility] Comment on above: Performed By: #### C MPX, CDP #### [facility] [address] [place], [place] [id number] [employer] Operator: Khadar Tang MD Protein [Mass/Vol] 7.1 g/dL Normal 6.4-8.3 [facility] Comment on above: Performed By: #### C MPX, CDP #### [facility] [address] [place], [place] [address] [employer] Operator: Khadar Tang MD Sodium [Moles/Vol] 140 mmol/L Normal 135-144 [facility] Comment on above: Performed By: #### C MPX, CDP #### [facility] [address] [place], [place] [address] [employer] Operator: Khadar Tang MD Urea nitrogen [Mass/Vol] 38 mg/dL High 8-23 [facility] Comment on above: Performed By: #### C MPX, CDP #### [facility] [address] [place], [place] [id number] [employer] Operator: Khadar Tang MD Comprehensive Metabolic Pane l w/ Reflex to MGon 06-23-2022 Albumin [Mass/Vol] 2.9 g/dL Low 3.5 - 5.2 g/dL [facility] Albumin/Globulin [Mass ratio] 0.7 {ratio} Low 1.0 - 2.5 [facility] ALP [Catalytic activity/Vol] 89 U/L 40 - 129 U/L [facility] ALT [Catalytic activity/Vol] 11 U/L 5 - 41 U/L [facility] Anion gap [Moles/Vol] 8 mmol/L Low 9 - 17 mmol/L [facility] AST [Catalytic activity/Vol] 12 U/L NINF - 40 U/L [facility] Bilirubin [Mass/Vol] 0.2 mg/dL Low 0.3 - 1.2 mg/dL [facility] Calcium [Mass/Vol] 9.0 mg/dL 8.6 - 10. 4 mg/dL [facility] Chloride [Moles/Vol] 115 mmol/L High 98 - 107 mmol/L [facility] CO2 [Moles/Vol] 17 mmol/L Low 20 - 31 mmol/L [facility] Creatinine [Mass/Vol] 1.55 mg/dL High 0.70 - 1.20 mg/dL [facility] GFR/1.73 sq M.predicted MDRD (S/P/Bld) [Vol rate/Area] 51 mL/min/{1.73_m2} Low - PINF [facility] Comment on above: These results are not intended for use in patients <18 years of age. eGFR results are calculated without a race factor using the 2020 CKD-EPI equation. Careful clinical correlation is recommended, particularly when comparing to results calculated using previous equations. The CKD-EPI equation is less accurate in patients with extremes of muscle mass, extra-renal metabolism of creatine, excessive creatine ingestion, or following therapy that affects renal tubular secretion. Glucose [Mass/Vol] 119 mg/dL High 70 - 99 mg/dL [facility] Interpretation and review of laboratory results Abnormal [facility] Potassium [Moles/Vol] 5.4 mmol/L High 3.7 - 5.3 mmol/L [facility] Protein [Mass/Vol] 7.1 g/dL 6.4 - 8.3 g/dL [facility] Sodium [Moles/Vol] 140 mmol/L 135 - 144 mmol/L [facility] Urea nitrogen [Mass/Vol] 38 mg/dL High 8 - 23 mg/dL [facility] Urea nitrogen/Creatinin e (Bld) [Mass ratio] 25 High 9 - 20 [email or web address] EKG 12 LeadOrdered By: Michelle Tellez hmad on 06-23-2022 Atrial Rate 60 BPM [employer] Work Phone: P Paragon 55 degrees [employer] Work Phone: P-R Interval 182 ms [employer] Work Phone: Q-T Interval 388 ms [employer] Work Phone: QRS Duration 88 ms [employer] Work Phone: QTc Calculation (Bazett) 388 ms [employer] Work Phone: R [employer]agon 15 degrees [employer] Work Phone: T Paragon 40 degrees [employer] Work Phone: Ventricular Rate 60 BPM [employer] Work Phone: [employer] Work Phone: EKG 12 Leadon 06-23-2022 Poor data qualit y, interpretation may be adversely affected Normal sinus rhythm Normal ECG When compared with ECG of 22-JUN-2022 13:14, (unconfirmed) Borderline criteria for Anterolateral infarct are no longer Present Criteria for Inferior infarct are no longer Present T wave inversion no longer evident in Inferior leads Confirmed by Michelle Noe MD ([id number]) on 06/23/2022 3:18:16 PM [facility] RAD[facility] Michelle Noe MD - 06/23/2022 Poor data quality, interpretation may be adversely affected Normal sinus rhythm Normal ECG When compared with ECG of 22-JUN-2022 13:14, (unconfirmed) Borderline criteria for Anterolateral infarct are no longer Present Criteria for Inferior infarct are no longer Present T wave inversion no longer evident in Inferior leads Confirmed by Michelle Noe MD ([id number]) on 06/23/2022 3:18:16 PM [employer] Work Phone: EKG Rhythm Stripon [address] [facility] Glucose, Whole Bloodon 06-23 Glucose [Mass/Vol] 230 mg/dL High 74 - 100 mg/dL [facility] Interpretation and review of laboratory results Abnormal [facility] Urinalysison 06-23-2022 Bilirubin Urine Negative NEGATIVE [facility] Color, UA Yellow Yellow [facility] Glucose Auto test strip (U) [Mass/Vol] Negative NEGATIVE [facility] Ketones (U) [Mass/Vol] Negative NEGATIVE [facility] Leukocyte esterase Auto test strip Ql (U) Negative NEGATIVE [facility] Nitrite Auto test strip Ql (U) Negative NEGATIVE [facility] Protein (U) [Mass/Vol] 6.0 mg/dL 5.0 - 9.0 [facility] Protein (U) [Mass/Vol] Negative NEGATIVE [facility] Specific Pledger, UA 1.020 1.010 - 1.020 [facility] Turbidity UA Clear Clear [facility] Urine Hgb Negative NEGATIVE [facility] Urobilinogen, Urine Normal Normal [facility] Urinalysis, Routineon 2022 Bilirubin, SemiQt,Ur Negative Normal NEG [facility] Comment on above: Performed By: #### U A #### [facility] [address] [place] [address] [employer] Operator: Khadar Tang MD Blood, Urine Negative Normal NEG [facility] Comment on above: Performed By: #### U A #### [facility] [address] [place] [address] [employer] Operator: Khadar Tang MD Clarity (U) Clear Normal CLEAR [facility] Comment on above: Performed By: #### U A #### [facility] [address] [place] [address] [employer] Operator: Khadar Tang MD Color (U) Yellow Normal YEL [facility] Comment on above: Performed By: #### U A #### [facility] [address] [place] [address] [address]. [place], [place] [id number] [employer] Operator: Khadar Tang MD Glucose Ql (U) Negative Normal NEG [facility] Comment on above: Performed By: #### U A #### [facility] [address] [place] [address] [address]. [place], [place] [id number] [employer] Operator: Khadar Tang MD Ketones Ql (U) Negative Normal NEG [facility] Comment on above: Performed By: #### U A #### [address] [place], [place] [id number] [employer] Operator: Khadar Tang MD Leukocyte esterase Test strip Ql (U) Negative Normal NEG [facility] Comment on above: Performed By: #### U A #### [address] [place], [place] [id number] [employer] Operator: Khadar Tang MD Nitrite,Ur Negative Normal NEG [facility] Comment on above: Performed By: #### U A #### [address] [place], [place] [id number] [employer] Operator: Khadar Tang MD PH,Ur 6.0 Normal 5.0-9.0 [facility] Comment on above: Performed By: #### U A #### [facility] [address] [place] [address] Dr. [place], [place] [id number] [employer] Operator: Khadar Tang MD Protein Ql (U) Negative Normal NEG [facility] Comment on above: Performed By: #### U A #### [address] [place] [address] [employer] Operator: Khadar Tang MD Spec. Pledger,Ur 1.020 Normal 1.010-1.020 [facility] Comment on above: Performed By: #### U A #### [facility] [address] [place] [place] [address] [employer] Operator: Khadar Tang MD Urobilinogen,Ur Normal Normal NORM [facility] Comment on above: Performed By: #### U A #### [facility] [address] [place] [place] [address] [employer] Operator: Khadar Tang MD XR ANKLE RIGHT (MIN 3 VIEWS) on 06-23-2022 XR ANKLE RIGHT (MIN 3 VIEWS) EXAMINATION: THREE XRAY VIEWS OF THE RIGHT ANKLE 06/23/2022 3:19 pm COMPARISON: 06/03/2017. HISTORY: ORDERING SYSTEM PROVIDED HISTORY: wounds TECHNOLOGIST PROVIDED HISTORY: wounds FINDINGS: There is diffuse subcutaneous edema. There is no subcutaneous air. The ankle mortise is not widened. The talar dome is intact. There is periostitis laterally at the distal aspect of the fibula. There was lucency in this area previously. Elsewhere, no fracture, dislocation or focal bone lesion is noted. Calcaneal spurring appears unchanged. IMPRESSION: 1. Nonspecific diffuse subcutaneous edema. 2. Periostitis at the lateral aspect of the fibula distally. There was osteomyelitis in this region previously. This could reflect chronic osteomyelitis. Elsewhere, there is no subcutaneous air or evidence of osteomyelitis. Interpreted by: Derrick Squires MD Signed by: Derrick Squires MD 06/23/22 Final result Normal [facility] 1. Nonspecific diffu se subcutaneous edema. 2. Periostitis at the lateral aspect of the fibula distally. There was osteomyelitis in this region previously. This could reflect chronic osteomyelitis. Elsewhere, there is no subcutaneous air or evidence of osteomyelitis. [facility] RIS CONSOLIDATED EXAMINATION: THREE XRAY VIEWS OF THE RIGHT ANKLE 06/23/2022 3:19 pm COMPARISON: 06/03/2017. HISTORY: ORDERING SYSTEM PROVIDED HISTORY: wounds TECHNOLOGIST PROVIDED HISTORY: wounds FINDINGS: There is diffuse subcutaneous edema. There is no subcutaneous air. The ankle mortise is not widened. The talar dome is intact. There is periostitis laterally at the distal aspect of the fibula. There was lucency in this area previously. Elsewhere, no fracture, dislocation or focal bone lesion is noted. Calcaneal spurring appears unchanged. [facility] Derrick Stern MD - 06/23/2022 EXAMINATION: THREE XRAY VIEWS OF THE RIGHT ANKLE 06/23/2022 3:19 pm COMPARISON: 06/03/2017. HISTORY: ORDERING SYSTEM PROVIDED HISTORY: wounds TECHNOLOGIST PROVIDED HISTORY: wounds FINDINGS: There is diffuse subcutaneous edema. There is no subcutaneous air. The ankle mortise is not widened. The talar dome is intact. There is periostitis laterally at the distal aspect of the fibula. There was lucency in this area previously. Elsewhere, no fracture, dislocation or focal bone lesion is noted. Calcaneal spurring appears unchanged. IMPRESSION: 1. Nonspecific diffuse subcutaneous edema. 2. Periostitis at the lateral aspect of the fibula distally. There was osteomyelitis in this region previously. This could reflect chronic osteomyelitis. Elsewhere, there is no subcutaneous air or evidence of osteomyelitis. [employer] Work Phone: Radiology Study observation (narrative) [employer] Phone: XR ANKLE RIGHT (MIN 3 VIEWS) Ordered By: Derrick Squires on 06-23-2022 [employer] Phone: Basic Metabolic Panelon 05-28 Anion gap [Moles/Vol] 9 mmol/L 9 - 17 mmol/L [employer] Calcium [Mass/Vol] 9.5 mg/dL 8.6 - 10. 4 mg/dL [employer] Chloride [Moles/Vol] 112 mmol/L High 98 - 107 mmol/L [employer] CO2 [Moles/Vol] 17 mmol/L Low 20 - 31 mmol/L [employer] Creatinine [Mass/Vol] 2 mg/dL High 0.70 - 1.20 mg/dL [employer] GFR/1.73 sq M.predicted MDRD (S/P/Bld) [Vol rate/Area] 38 mL/min/{1.73_m2} Low - PINF [employer] Comment on above: These results are not intended for use in patients <18 years of age. eGFR results are calculated without a race factor using the 2020 CKD-EPI equation. Careful clinical correlation is recommended, particularly when comparing to results calculated using previous equations. The CKD-EPI equation is less accurate in patients with extremes of muscle mass, extra-renal metabolism of creatine, excessive creatine ingestion, or following therapy that affects renal tubular secretion. Glucose [Mass/Vol] 137 mg/dL High 70 - 99 mg/dL [facility] Interpretation and review of laboratory results Abnormal [facility] Potassium [Moles/Vol] 6.1 mmol/L Critically high 3.7 - 5.3 mmol/L [facility] Sodium [Moles/Vol] 138 mmol/L 135 - 144 mmol/L [facility] Urea nitrogen [Mass/Vol] 45 mg/dL High 8 - 23 mg/dL [facility] Urea nitrogen/Creatinin e (Bld) [Mass ratio] 23 High 9 - 20 [facility] Basic Metabolic Profon 06-22 Potassium [Moles/Vol] 6.1 mmol/L Critically high 3.7-5.3 [facility] Comment on above: Performed By: #### T ROPI #### [facility] [address] [place] [address] [place] [address] [employer] Operator: Khadar Tang MD Anion gap [Moles/Vol] 9 mmol/L Normal 9-17 [facility] Comment on above: Performed By: #### T ROPI #### [facility] [address] [place] [address] [employer] Operator: Khadar Tang MD BUN/CRE Ratio 23 High 9-20 [facility] Comment on above: Performed By: #### T ROPI #### [facility] [address] [place] [address] [employer] Operator: Khadar Tang MD Calcium [Mass/Vol] 9.5 mg/dL Normal 8.6-10.4 [facility] Comment on above: Performed By: #### T ROPI #### [facility] [address] [place] [address] [employer] Operator: Khadar Tang MD Chloride [Moles/Vol] 112 mmol/L High 98-107 [facility] Comment on above: Performed By: #### T ROPI #### [facility] [address] [place] [address] [employer] Operator: Khadar Tang MD CO2 [Moles/Vol] 17 mmol/L Low 20-31 [facility] Comment on above: Performed By: #### T ROPI #### [facility] [address] [place] [address] [employer] Operator: Khadar Tang MD Creatinine [Mass/Vol] 2.00 mg/dL High 0.70-1.20 [facility] Comment on above: Performed By: #### T ROPI #### [facility] [address] [place] [address] [employer] Operator: Khadar Tang MD GFR/1.73 sq M.predicted among non-blacks MDRD (S/P/Bld) [Vol rate/Area] 38 mL/min/{1.73_m2} Low >60 [facility] Comment on above: Result Comment: These results are not intended for use in patients <18 years of age. eGFR results are calculated without a race factor using the 2020 CKD-EPI equation. Careful clinical correlation is recommended, particularly when comparing to results calculated using previous equations. The CKD-EPI equation is less accurate in patients with extremes of muscle mass, extra-renal metabolism of creatine, excessive creatine ingestion, or following therapy that affects renal tubular secretion. Performed By: #### T ROPI #### [facility] [address] [place] [address] [employer] Operator: Khadar Tang MD Glucose [Mass/Vol] 137 mg/dL High 70-99 [facility] Comment on above: Performed By: #### T ROPI #### [facility] [address] [place] [address] [employer] Operator: Khadar Tang MD Sodium [Moles/Vol] 138 mmol/L Normal 135-144 [facility] Comment on above: Performed By: #### T ROPI #### [facility] [address] [place] [address] [employer] Operator: Khadar Tang MD Urea nitrogen [Mass/Vol] 45 mg/dL High 8-23 [facility] Comment on above: Performed By: #### T ROPI #### [facility] [address] [place] [address] [employer] Operator: Khadar Tang MD CBC with Auto Differentialon 06-22-2022 Absolute Eos # 0.86 High [facility] Absolute Immature Granulocyte 0.09 [facility] Absolute Lymph # 1.97 [facility] Absolute Coos # 0.88 [facility] Basophils (Bld) [#/Vol] 0.05 10*3/uL [facility] Basophils/100 WBC (Bld) 0 % 0 - 2 % [facility] Eosinophils/100 WBC (Bld) 7 % High 1 - 4 % [facility] Hematocrit (Bld) [Volume fraction] 27.6 % Low 40.7 - 50.3 % [facility] Hemoglobin (Bld) [Mass/Vol] 8.3 g/dL Low 13.0 - 17.0 g/dL [facility] Immature granulocytes/100 WBC (Bld) 1 % High 0 [facility] Interpretation and review of laboratory results Abnormal [facility] Lymphocytes/100 WBC (Bld) 15 % Low 24 - 43 % [facility] MCH (RBC) [Entitic mass] 23.3 pg Low 25.2 - 33.5 pg [facility] MCHC (RBC) [Mass/Vol] 30.1 g/dL 28.4 - 34.8 g/dL [facility] MCV (RBC) [Entitic vol] 77.5 fL Low 82.6 - 102.9 fL [facility] Monocytes/100 WBC (Bld) 7 % 3 - 12 % [facility] NRBC Automated 0.0 0.0 per 100 WBC [facility] Platelet distribution width (Bld) [Ratio] 16.2 % High 11.8 - 14.4 % [facility] Platelet mean volume (Bld) [Entitic vol] 8.6 fL 8.1 - 13.5 fL [facility] Platelets (Bld) [#/Vol] 338 10*3/uL [facility] RBC (Bld) [#/Vol] 3.56 10*6/uL Low 4.21 - 5.7 7 m/uL [facility] Segmented neutrophils/100 WBC (Bld) 70 % High 36 - 65 % [facility] Segs Absolute 8.91 High [facility] WBC (Bld) [#/Vol] 12.8 10*3/uL High [facility] Absolute Eos # 0.84 High [facility] Absolute Immature Granulocyte 0.06 [facility] Absolute Lymph # 1.69 [facility] Absolute Coos # 0.82 [facility] Basophils (Bld) [#/Vol] 0.04 10*3/uL [facility] Basophils/100 WBC (Bld) 0 % 0 - 2 % [facility] Eosinophils/100 WBC (Bld) 7 % High 1 - 4 % [facility] Hematocrit (Bld) [Volume fraction] 27.1 % Low 40.7 - 50.3 % [facility] Hemoglobin (Bld) [Mass/Vol] 8.7 g/dL Low 13.0 - 17.0 g/dL [facility] Immature granulocytes/100 WBC (Bld) 1 % High 0 [facility] Interpretation and review of laboratory results Abnormal [facility] Lymphocytes/100 WBC (Bld) 14 % Low 24 - 43 % [facility] MCH (RBC) [Entitic mass] 25.3 pg 25.2 - 33.5 pg [facility] MCHC (RBC) [Mass/Vol] 32.1 g/dL 28.4 - 34.8 g/dL [facility] MCV (RBC) [Entitic vol] 78.8 fL Low 82.6 - 102.9 fL [facility] Monocytes/100 WBC (Bld) 7 % 3 - 12 % [facility] NRBC Automated 0.0 0.0 per 100 WBC [facility] Platelet distribution width (Bld) [Ratio] 16.4 % High 11.8 - 14.4 % [facility] Platelet mean volume (Bld) [Entitic vol] 9.4 fL 8.1 - 13.5 fL [facility] Platelets (Bld) [#/Vol] 345 10*3/uL [facility] RBC (Bld) [#/Vol] 3.44 10*6/uL Low 4.21 - 5.7 7 m/uL [facility] Segmented neutrophils/100 WBC (Bld) 71 % High 36 - 65 % [facility] Segs Absolute 9.06 High [facility] WBC (Bld) [#/Vol] 12.5 10*3/uL High [facility] CBC with Diffon 06-22-2022 Abs. Basophil 0.05 k/uL Normal 0.00-0.20 [facility] Comment on above: Performed By: #### C MG ZANDER, CP #### [address] [place] [address] [employer] Operator: Khadar Tang MD Abs.Imm.Granulocyt e 0.09 k/uL Normal 0.00-0.30 [facility] Comment on above: Performed By: #### C MG ZANDER, CP #### [facility] [address] [place] [address] Dr. [place], [place] [id number] [employer] Operator: Khadar Tang MD Abs.Neutrophil (Seg) 8.91 k/uL High 1.50-8.10 [facility] Comment on above: Performed By: #### C ZANDER MG, CP #### [address] [place], [place] [id number] [employer] Operator: Khadar Tang MD Basophils/100 WBC (Bld) 0 % Normal 0-2 [facility] Comment on above: Performed By: #### C DP, MG, CP #### [facility] [address] [place] [address] Dr. [place], [place] [address] [employer] Operator: Khadar Tang MD Eosinophils (Bld) [#/Vol] 0.86 10*3/uL High 0.00-0.44 [facility] Comment on above: Performed By: #### C DP, MG, CP #### [address] [place], [place] [address] [employer] Operator: Khadar Tang MD Eosinophils/100 WBC (Bld) 7 % High 1-4 [facility] Comment on above: Performed By: #### C DP, MG, CP #### [address] [place] [address] [employer] Operator: Khadar Tang MD Erythrocyte distribution width (RBC) [Ratio] 16.2 % High 11.8-14.4 [facility] Comment on above: Performed By: #### C DP, MG, CP #### [address] [place] [address] [employer] Operator: Khadar Tang MD Hematocrit (Bld) [Volume fraction] 27.6 % Low 40.7-50.3 [facility] Comment on above: Performed By: #### C DP, MG, CP #### [address] [place], [id number] [employer] Operator: Khadar Tang MD Hemoglobin (Bld) [Mass/Vol] 8.3 g/dL Low 13.0-17.0 [facility] Comment on above: Performed By: #### C DP, MG, CP #### [address] [place] [address] [employer] Operator: Khadar Tang MD Immature granulocytes/100 WBC (Bld) 1 % High 0 [facility] Comment on above: Performed By: #### C DP, MG, CP #### [address] [place], [place] [id number] [employer] Operator: Khadar Tang MD Lymphocytes (Bld) [#/Vol] 1.97 10*3/uL Normal 1.10-3.70 [facility] Comment on above: Performed By: #### C DP, MG, CP #### [address] [place], [id number] [employer] Operator: Khadar Tang MD Lymphocytes/100 WBC (Bld) 15 % Low 24-43 [facility] Comment on above: Performed By: #### C DP, MG, CP #### [address] [place] [address] [employer] Operator: Khadar Tang MD MCH (RBC) [Entitic mass] 23.3 pg Low 25.2-33.5 [facility] Comment on above: Performed By: #### C DP, MG, CP #### [address] [place], [id number] [employer] Operator: Khadar Tang MD MCHC (RBC) [Mass/Vol] 30.1 g/dL Normal 28.4-34.8 [facility] Comment on above: Performed By: #### C DP, MG, CP #### [address] [place], [place] [address] [employer] Operator: Khadar Tang MD MCV (RBC) [Entitic vol] 77.5 fL Low 82.6-102.9 [facility] Comment on above: Performed By: #### C DP, MG, CP #### [address] [place] [address] [employer] Operator: Khadar Tang MD Monocytes (Bld) [#/Vol] 0.88 10*3/uL Normal 0.10-1.20 [facility] Comment on above: Performed By: #### C DP, MG, CP #### [facility] [address] [place] [address] [place] [address] [employer] Operator: Khadar Tang MD Monocytes/100 WBC (Bld) 7 % Normal 3-12 [facility] Comment on above: Performed By: #### C DP, MG, CP #### [facility] [address] [place], [place] [address] [employer] Operator: Khadar Tang MD Neutrophil (Seg) 70 % High 36-65 [facility] Comment on above: Performed By: #### C DP, MG, CP #### [address] [place] [address] [employer] Operator: Khadar Tang MD NRBC Automated 0.0 per 100 WBC Normal 0.0 [facility] Comment on above: Performed By: #### C DP, MG, CP #### [address] [place], [place] [address] [employer] Operator: hKadar Tang MD Platelet mean volume (Bld) [Entitic vol] 8.6 fL Normal 8.1-13.5 [facility] Comment on above: Performed By: #### C DP, MG, CP #### [address] [place], [place] [address] [employer] Operator: Khadar Tang MD Platelets (Bld) [#/Vol] 338 10*3/uL Normal 138-453 [facility] Comment on above: Performed By: #### C DP, MG, CP #### [address] [place], [id number] [employer] Operator: Khadar Tang MD RBC (Bld) [#/Vol] 3.56 10*6/uL Low 4.21-5.77 [facility] Comment on above: Performed By: #### C DP, MG, CP #### [address] [place], [place] [address] [employer] Operator: Khadar Tang MD WBC (Bld) [#/Vol] 12.8 10*3/uL High 3.5-11.3 [facility] Comment on above: Performed By: #### C DP, MG, CP #### [address] [place] [address] [employer] Operator: Khadar Tang MD Abs. Basophil 0.04 k/uL Normal 0.00-0.20 [facility] Comment on above: Performed By: #### T ROPI #### [address] [place] [address] [employer] Operator: Khadar Tang MD Abs.Imm.Granulocyt e 0.06 k/uL Normal 0.00-0.30 [facility] Comment on above: Performed By: #### T ROPI #### [address] [place] [address] [employer] Operator: Khadar Tang MD Abs.Neutrophil (Seg) 9.06 k/uL High 1.50-8.10 [facility] Comment on above: Performed By: #### T ROPI #### [address] [place], [id number] [employer] Operator: Khadar Tang MD Basophils/100 WBC (Bld) 0 % Normal 0-2 [facility] Comment on above: Performed By: #### T ROPI #### [address] [place], [place] [address] [employer] Operator: Khadar Tang MD Eosinophils (Bld) [#/Vol] 0.84 10*3/uL High 0.00-0.44 [facility] Comment on above: Performed By: #### T ROPI #### [address] [place], [id number] [employer] Operator: Khadar Tang MD Eosinophils/100 WBC (Bld) 7 % High 1-4 [facility] Comment on above: Performed By: #### T ROPI #### [facility] [address] [place] [address] [employer] Operator: Khadar Tang MD Erythrocyte distribution width (RBC) [Ratio] 16.4 % High 11.8-14.4 [facility] Comment on above: Performed By: #### T ROPI #### [facility] [address] [place] [address] [employer] Operator: Khadar Tang MD Hematocrit (Bld) [Volume fraction] 27.1 % Low 40.7-50.3 [facility] Comment on above: Performed By: #### T ROPI #### [address] [place] [id number] [employer] Operator: Khadar Tang MD Hemoglobin (Bld) [Mass/Vol] 8.7 g/dL Low 13.0-17.0 [facility] Comment on above: Performed By: #### T ROPI #### [address] [place], [place] [address] [employer] Operator: Khadar Tang MD Immature granulocytes/100 WBC (Bld) 1 % High 0 [facility] Comment on above: Performed By: #### T ROPI #### [facility] [address] [place] [address] Dr. [place], [place] [address] [employer] Operator: Khadar Tang MD Lymphocytes (Bld) [#/Vol] 1.69 10*3/uL Normal 1.10-3.70 [facility] Comment on above: Performed By: #### T ROPI #### [facility] [address] [place] [id number] [employer] Operator: Khadar Tang MD Lymphocytes/100 WBC (Bld) 14 % Low 24-43 [facility] Comment on above: Performed By: #### T ROPI #### [facility] [address] [place], [place] [id number] [employer] Operator: Khadar Tang MD MCH (RBC) [Entitic mass] 25.3 pg Normal 25.2-33.5 [facility] Comment on above: Performed By: #### T ROPI #### [facility] [address] [place], [facility] [id number] [employer] Operator: Khadar Tang MD MCHC (RBC) [Mass/Vol] 32.1 g/dL Normal 28.4-34.8 [facility] Comment on above: Performed By: #### T ROPI #### [facility] [address] [place], [id number] [employer] Operator: Khadar Tang MD MCV (RBC) [Entitic vol] 78.8 fL Low 82.6-102.9 [facility] Comment on above: Performed By: #### T ROPI #### [facility] [address] [place], [id number] [employer] Operator: Khadar Tang MD Monocytes (Bld) [#/Vol] 0.82 10*3/uL Normal 0.10-1.20 [facility] Comment on above: Performed By: #### T ROPI #### [facility] [address] [place], [id number] [employer] Operator: Khadar Tang MD Monocytes/100 WBC (Bld) 7 % Normal 3-12 [facility] Comment on above: Performed By: #### T ROPI #### [facility] [address] [place] [address] [employer] Operator: Khadar Tang MD Neutrophil (Seg) 71 % High 36-65 [facility] Comment on above: Performed By: #### T ROPI #### [facility] [address] [place] [address] [employer] Operator: Khadar Tang MD NRBC Automated 0.0 per 100 WBC Normal 0.0 [facility] Comment on above: Performed By: #### T ROPI #### [facility] [address] [place], [place] [id number] [employer] Operator: Khadar Tang MD Platelet mean volume (Bld) [Entitic vol] 9.4 fL Normal 8.1-13.5 [facility] Comment on above: Performed By: #### T ROPI #### [facility] [address] [place], [place] 0127483 [employer] Operator: Khadar Tang MD Platelets (Bld) [#/Vol] 345 10*3/uL Normal 138-453 [facility] Comment on above: Performed By: #### T ROPI #### [facility] [address] [place], [place] [id number] [employer] Operator: Khadar Tang MD RBC (Bld) [#/Vol] 3.44 10*6/uL Low 4.21-5.77 [facility] Comment on above: Performed By: #### T ROPI #### [facility] [address] [place], [place] [id number] [employer] Operator: Khadar Tang MD WBC (Bld) [#/Vol] 12.5 10*3/uL High 3.5-11.3 [facility] Comment on above: Performed By: #### T ROPI #### [facility] [address] [place], [place] [id number] [employer] Operator: Khadar Tang MD CMPon 06-22-2022 Albumin [Mass/Vol] 3.2 g/dL Low 3.5 - 5.2 g/dL [facility] Albumin/Globulin [Mass ratio] 0.7 {ratio} Low 1.0 - 2.5 [facility] ALP [Catalytic activity/Vol] 101 U/L 40 - 129 U/L [facility] ALT [Catalytic activity/Vol] 8 U/L 5 - 41 U/L [facility] Anion gap [Moles/Vol] 11 mmol/L 9 - 17 mmol/L [facility] AST [Catalytic activity/Vol] 13 U/L NINF - 40 U/L [facility] Bilirubin [Mass/Vol] mg/dL Low 0.3 - 1.2 mg/dL [facility] Calcium [Mass/Vol] 9.1 mg/dL 8.6 - 10. 4 mg/dL [facility] Chloride [Moles/Vol] 110 mmol/L High 98 - 107 mmol/L [facility] CO2 [Moles/Vol] 16 mmol/L Low 20 - 31 mmol/L [facility] Creatinine [Mass/Vol] 1.93 mg/dL High 0.70 - 1.20 mg/dL [facility] GFR/1.73 sq M.predicted MDRD (S/P/Bld) [Vol rate/Area] 39 mL/min/{1.73_m2} Low - PINF [facility] Comment on above: These results are not intended for use in patients <18 years of age. eGFR results are calculated without a race factor using the 2020 CKD-EPI equation. Careful clinical correlation is recommended, particularly when comparing to results calculated using previous equations. The CKD-EPI equation is less accurate in patients with extremes of muscle mass, extra-renal metabolism of creatine, excessive creatine ingestion, or following therapy that affects renal tubular secretion. Glucose [Mass/Vol] 148 mg/dL High 70 - 99 mg/dL [facility] Interpretation and review of laboratory results Abnormal [facility] Potassium [Moles/Vol] 6.3 mmol/L Critically high 3.7 - 5.3 mmol/L [facility] Protein [Mass/Vol] 8.1 g/dL 6.4 - 8.3 g/dL [facility] Sodium [Moles/Vol] 137 mmol/L 135 - 144 mmol/L [facility] Urea nitrogen [Mass/Vol] 49 mg/dL High 8 - 23 mg/dL [facility] Urea nitrogen/Creatinin e (Bld) [Mass ratio] 25 High 9 - 20 [facility] Comp Metabolic Profon 2022 Bilirubin [Mass/Vol] mg/dL Low 0.3-1.2 [facility] Comment on above: Performed By: #### C DP, MG, CP #### [facility] [address] [place], [place] [id number] [employer] Operator: Khadar Tang MD Potassium [Moles/Vol] 6.3 mmol/L Critically high 3.7-5.3 [facility] Comment on above: Performed By: #### C DP, MG, CP #### [facility] [address] [place], [place] [id number] [employer] Operator: Khadar Tang MD Albumin [Mass/Vol] 3.2 g/dL Low 3.5-5.2 [facility] Comment on above: Performed By: #### C DP, MG, CP #### [facility] [address] [place] [address] Dr. [place], [place] [id number] [employer] Operator: Khadar Tang MD Albumin/Glob Ratio 0.7 Low 1.0-2.5 [facility] Comment on above: Performed By: #### C DP, MG, CP #### [facility] [address] [place], [place] [id number] [employer] Operator: Khadar Tang MD Alkaline Phos 101 U/L Normal 40-129 [facility] Comment on above: Performed By: #### C DP, MG, CP #### [facility] [address] [place], [place] 5185783 [employer] Operator: Khadar Tang MD ALT [Catalytic activity/Vol] 8 U/L Normal 5-41 [facility] Comment on above: Performed By: #### C DP, MG, CP #### [facility] [address] [place], [place] 8448583 [employer] Operator: Khadar Tang MD Anion gap [Moles/Vol] 11 mmol/L Normal 9-17 [facility] Comment on above: Performed By: #### C DP, MG, CP #### [facility] [address] [place], [place] 3002183 [employer] Operator: Khadar Tang MD AST [Catalytic activity/Vol] 13 U/L Normal <40 [facility] Comment on above: Performed By: #### C DP, MG, CP #### [facility] [address] [place] [address] [employer] Operator: Khadar Tang MD BUN/CRE Ratio 25 High 9-20 [facility] Comment on above: Performed By: #### C DP, MG, CP #### [address] [place], [place] 1527283 [employer] Operator: Khadar Tang MD Calcium [Mass/Vol] 9.1 mg/dL Normal 8.6-10.4 [facility] Comment on above: Performed By: #### C DP, MG, CP #### [facility] [address] [place] [address] Dr. [place], [place] 2603283 [employer] Operator: Khadar Tang MD Chloride [Moles/Vol] 110 mmol/L High 98-107 [facility] Comment on above: Performed By: #### C DP, MG, CP #### [facility] [address] [place] [address] [place] [address] [employer] Operator: Khadar Tang MD CO2 [Moles/Vol] 16 mmol/L Low 20-31 [facility] Comment on above: Performed By: #### C DP, MG, CP #### [facility] [address] [place] [address] Dr. [place], [place] 6594483 [employer] Operator: Khadar Tang MD Creatinine [Mass/Vol] 1.93 mg/dL High 0.70-1.20 [facility] Comment on above: Performed By: #### C DP, MG, CP #### [facility] [address] [place] [address] Dr. [place], [place] [id number] [employer] Operator: Khadar Tang MD GFR/1.73 sq M.predicted among non-blacks MDRD (S/P/Bld) [Vol rate/Area] 39 mL/min/{1.73_m2} Low >60 [facility] Comment on above: Result Comment: These results are not intended for use in patients <18 years of age. eGFR results are calculated without a race factor using the 2020 CKD-EPI equation. Careful clinical correlation is recommended, particularly when comparing to results calculated using previous equations. The CKD-EPI equation is less accurate in patients with extremes of muscle mass, extra-renal metabolism of creatine, excessive creatine ingestion, or following therapy that affects renal tubular secretion. Performed By: #### C DP, MG, CP #### [address] [place] [address] [employer] Operator: Khadar Tang MD Glucose [Mass/Vol] 148 mg/dL High 70-99 [facility] Comment on above: Performed By: #### C DP, MG, CP #### [address] [place] [address] [employer] Operator: Khadar Tang MD Protein [Mass/Vol] 8.1 g/dL Normal 6.4-8.3 [facility] Comment on above: Performed By: #### C DP, MG, CP #### [address] [place] [address] [employer] Operator: Khadar Tang MD Sodium [Moles/Vol] 137 mmol/L Normal 135-144 [facility] Comment on above: Performed By: #### C DP, MG, CP #### [address] [place] [address] [employer] Operator: Khadar Tang MD Urea nitrogen [Mass/Vol] 49 mg/dL High 8-23 [facility] Comment on above: Performed By: #### C DP, MG, CP #### [facility] [address] [place] [address] [place] [address] [employer] Operator: Khadar Tang MD EKG 12 LeadOrdered By: Michelle gonzalezad on 06-22-2022 Atrial Rate 58 BPM [employer] Work Phone: P Paragon 66 degrees [employer] Work Phone: P-R Interval 148 ms [employer] Work Phone: Q-T Interval 394 ms [employer] Work Phone: QRS Duration 94 ms [employer] Work Phone: QTc Calculation (Bazett) 386 ms [employer] Work Phone: R Paragon 64 degrees [employer] Work Phone: T Paragon -8 degrees [employer] Work Phone: Ventricular Rate 58 BPM [employer] Work Phone: [employer] Work Phone: EKG 12 Leadon 06-22-2022 Sinus bradycardia Inferior infarct , age undetermined Possible Anterolateral infarct , age undetermined Abnormal ECG When compared with ECG of 24-APR-2015 18:25, Vent. rate has decreased BY 39 BPM Borderline criteria for Anterolateral infarct are now Present T wave inversion now evident in Inferior leads QT has shortened Confirmed by Michelle Noe MD ([id number]) on 06/22/2022 10:09:31 PM [facility] Michelle Noe MD - 06/22/2022 Sinus bradycardia Inferior infarct , age undetermined Possible Anterolateral infarct , age undetermined Abnormal ECG When compared with ECG of 24-APR-2015 18:25, Vent. rate has decreased BY 39 BPM Borderline criteria for Anterolateral infarct are now Present T wave inversion now evident in Inferior leads QT has shortened Confirmed by Michelle Noe MD ([id number]) on 06/22/2022 10:09:31 PM [employer] Work Phone: Magnesiumon 06-22-2022 Magnesium [Mass/Vol] 2.0 mg/dL Normal 1.6-2.6 [facility] Comment on above: Performed By: #### C DP, MG, CP #### [facility] [address] [place] [address] [employer] Operator: Khadar Tang MD Magnesium [Mass/Vol] 2.0 mg/dL 1.6 - 2.6 mg/dL [facility] CT PELVIS WO CONon 2 CT PELVIS WO CON EXAMINATION: CT PELV IS WO CON HISTORY: Pain in right hip joint. Ulcer x6 months. Worsening pain over 2 months. COMPARISON: CT abdomen/pelvis 04/19/2020. TECHNIQUE: Multiple axial unenhanced CT images of the pelvis were supplemented with 2-D coronal and sagittal reformations. Dose reduction techniques were achieved by using automated exposure control and/or adjustment of mA and/or kV according to patient size and/or use of iterative reconstruction technique. FINDINGS: Skin wound/ulceration along the posterior midline body wall just above the gluteal fold has extended slightly deeper into the soft tissues at the tip of the S4 vertebral segment. The S5 and coccygeal segments are absent, as before which could be related to chronic erosive change or postsurgical change. There is soft tissue density along the ulcer crater which may be granulation tissue or less likely cellulitis. No abscess identified without IV contrast. Asymmetric fatty atrophy of the left piriformis muscle, unchanged. Deep ulcerations are also noted along the bilateral ischial tuberosities, right greater than left extending to the bone surfaces. There is chronic remodeling and sclerosis involving the right ischium. Interval bony remodeling and sclerosis of the left ischial tuberosity. These findings are compatible with chronic osteomyelitis. Mild to moderate bilateral hip joint osteoarthritis. Femoral heads appear smooth. Proximal femurs appear intact. Urinary bladder and prostate gland appear unremarkable. Moderate stool throughout the visualized colon and rectum. No bowel obstruction. A few prominent right inguinal lymph nodes are seen. Lymph node along the right external iliac chain measures 3.1 x 2.1 cm, presumably reactive and grossly unchanged. IMPRESSION: 1. Slight deepening of the ulceration along the superior gluteal fold extending to the distal margin of the sacrum. Chronic truncation of the distal sacrum and coccyx which may be related to chronic erosive change or postsurgical change. 2. Large ulcerations overlying the ischial tuberosities with progressive bony changes of the left ischial tuberosity compatible with chronic osteomyelitis. Similar chronic osteomyelitis of the right ischial tuberosity. 3. Prominent and mildly enlarged lymph nodes along the right external iliac chain and right groin presumably reactive. Electronically authenticated by: JESUSITA PAPPAS Date: 2022-03-14 09:50 Normal [facility] GLYCOHEMOGLOBIN A1Con 2021 ADA RECOMMENDATION ADA THERAPEUTIC TARG ET 6.0 - 7.0 ACTION SUGGESTED > 7.0 Normal [facility] Comment on above: Performed By: #### A 1C #### [facility] [address] [address] [address] Juan Smith Glucose [Mass/Vol] 180 mg/dL Normal [facility] Comment on above: Performed By: #### A 1C #### [facility] [address], [place] [address] Dr. Juan Smith HbA1c (Bld) [Mass fraction] 7.9 % Critically high <=6.0 [facility] Comment on above: Performed By: #### A 1C #### [facility] [address] [place], [place] [address] Dr. Juan Smith Cult,Aerobe/Anaerobeon 04-15 Neutrophils Specimen Description .TISSUE RIGHT MEDIAL HEEL POST IRRIGATIONSpecial Requests NOT REPORTEDDirect Exam NO NEUTROPHILS SEEN NO BACTERIA SEEN Culture METHICILLIN RESISTANT STAPHYLOCOCCUS AUREUS SCANT GROWTH For susceptibility, refer to previous culture. STREPTOCOCCI, BETA HEMOLYTIC GROUP C SCANT GROWTH DIPHTHEROIDS SCANT GROWTH NO ANAEROBIC ORGANISMS ISOLATED AT 5 DAYS Report Status FINAL 04/15/2017 Normal [facility] Comment on above: Performed By: #### A ANC ####[facility] [address] [place] [address] Neutrophils Specimen Description .TISSUE RIGHT ANKLE PRE IRRIGATIONSpecial Requests NOT REPORTEDDirect Exam NO NEUTROPHILS SEEN RARE GRAM POSITIVE COCCI IN PAIRS Culture METHICILLIN RESISTANT STAPHYLOCOCCUS AUREUS LIGHT GROWTH For susceptibility, refer to previous culture. STREPTOCOCCI, BETA HEMOLYTIC GROUP C SCANT GROWTH NO ANAEROBIC ORGANISMS ISOLATED AT 5 DAYS Report Status FINAL 04/15/2017 Normal [facility] Comment on above: Performed By: #### A ANC ####[address] [address] Neutrophils Specimen Description .TISSUE RIGHT MEDIAL HEEL PRE IRRIGATIONSpecial Requests NOT REPORTEDDirect Exam NO NEUTROPHILS SEEN NO BACTERIA SEEN Culture STREPTOCOCCI, BETA HEMOLYTIC GROUP C LIGHT GROWTH METHICILLIN RESISTANT STAPHYLOCOCCUS AUREUS SCANT GROWTH For susceptibility, refer to previous culture. DIPHTHEROIDS LIGHT GROWTH NO ANAEROBIC ORGANISMS ISOLATED AT 5 DAYS Report Status FINAL 04/15/2017 Normal [facility] Comment on above: Performed By: #### A ANC ####[address] [address] Basic Metabolic Profon 04-13 (cont.) Normal [facility] Comment on above: Result Comment: Aver age GFR for 50-59 years old: 93 mL/min/1.73sq mChronic Kidney Disease: <60 mL/min/1.73sq mKidney failure: <15 mL/min/1.73sq meGFR calculated using average adult body mass. Additional eGFR calculator available at:[email or web address] [email or web address] [place] [address] Performed By: #### C DP, CMPX, CRP, SED, GLYHGB ####[address] [address] Anion gap 11 mmol/L Normal 9-17 [facility] Comment on above: Performed By: #### C DP, CMPX, CRP, SED, GLYHGB ####[address] [address] Calcium 8.7 mg/dL Normal 8.6-10.4 [facility] Comment on above: Performed By: #### C DP, CMPX, CRP, SED, GLYHGB ####[address] [address] Chloride 106 mmol/L Normal 98-107 [facility] Comment on above: Performed By: #### C DP, CMPX, CRP, SED, GLYHGB ####[facility] [place] [address] CO2 22 mmol/L Normal 20-31 [facility] Comment on above: Performed By: #### C DP, CMPX, CRP, SED, GLYHGB ####[address] [place] [address] Creatinine 1.04 mg/dL Normal 0.70-1.20 [facility] Comment on above: Performed By: #### C DP, CMPX, CRP, SED, GLYHGB ####[address] [address] eGFR (non-black) mL/min/{1.73_m2} Normal >60 [facility] Comment on above: Performed By: #### C DP, CMPX, CRP, SED, GLYHGB ####[address] [address] Glucose mass conc 174 mg/dL High 70-99 [facility] Comment on above: Performed By: #### C DP, CMPX, CRP, SED, GLYHGB ####[address] [place] [address] Potassium molar conc 4.1 mmol/L Normal 3.7-5.3 [facility] Comment on above: Performed By: #### C DP, CMPX, CRP, SED, GLYHGB ####[address] [place] [address] Sodium 139 mmol/L Normal 135-144 [facility] Comment on above: Performed By: #### C DP, CMPX, CRP, SED, GLYHGB ####[address] [place] [address] Urea nitrogen 16 mg/dL Normal 6-20 [facility] Comment on above: Performed By: #### C DP, CMPX, CRP, SED, GLYHGB ####[address] [place] [address] BUN/CRE Ratio NOT REPORTED Normal - [facility] Comment on above: Performed By: #### C DP, CMPX, CRP, SED, GLYHGB ####[address] [address] Staging: NOT REPORTED Normal [facility] Comment on above: Performed By: #### C DP, CMPX, CRP, SED, GLYHGB ####[address] [address] CBC with Diffon 04-13-2017 Abs. Basophil <0.03 Normal 0.00-0.20 [facility] Comment on above: Performed By: #### C DP, CMPX, CRP, SED, GLYHGB ####[address] [address] Abs.Neutrophil (Seg) 4.97 k/uL Normal 1.50-8.10 [facility] Comment on above: Performed By: #### C DP, CMPX, CRP, SED, GLYHGB ####[address] [address] Basophils/100 WBC Auto (Bld) 0 % Normal 0-2 [facility] Comment on above: Performed By: #### C DP, CMPX, CRP, SED, GLYHGB ####[address] [address] Eosinophils 0.24 10*3/uL Normal 0.00-0.44 [facility] Comment on above: Performed By: #### C DP, CMPX, CRP, SED, GLYHGB ####[address] [address] Eosinophils/100 leukocytes 3 % Normal 1-4 [facility] Comment on above: Performed By: #### C DP, CMPX, CRP, SED, GLYHGB ####[address] [address] Erythrocyte distribution width Auto Ratio (RBC) 14.8 % High 11.8-14.4 [facility] Comment on above: Performed By: #### C DP, CMPX, CRP, SED, GLYHGB ####[address] [address] Erythrocyte morphology ANISOCYTOSIS PRESENT Normal [facility] Comment on above: Result Comment: [address] [address] Performed By: #### C DP, CMPX, CRP, SED, GLYHGB ####[address] [address] Erythrocytes (RBC) 0.0 per 100 WBC Normal 0.0 [facility] Comment on above: Performed By: #### C DP, CMPX, CRP, SED, GLYHGB ####[address] [address] Erythrocytes (RBC) 3.42 10*6/uL Low 4.21-5.77 [facility] Comment on above: Performed By: #### C DP, CMPX, CRP, SED, GLYHGB ####[address] [address] Granulocytes/100 WBC (Bld) 0.19 k/uL Normal 0.00-0.30 [facility] Comment on above: Performed By: #### C DP, CMPX, CRP, SED, GLYHGB ####[address] [address] Hematocrit (HCT) 29.4 % Low 40.7-50.3 [facility] Comment on above: Performed By: #### C DP, CMPX, CRP, SED, GLYHGB ####[address] [address] Hemoglobin mass conc (Bld) 8.8 g/dL Low 13.0-17.0 [facility] Comment on above: Performed By: #### C DP, CMPX, CRP, SED, GLYHGB ####[address] [address] Immature granulocytes #/vol (Bld) 2 % High 0 [facility] Comment on above: Performed By: #### C DP, CMPX, CRP, SED, GLYHGB ####[address] [address] Lymphocytes 2.00 10*3/uL Normal 1.10-3.70 [facility] Comment on above: Performed By: #### C DP, CMPX, CRP, SED, GLYHGB ####[address] [address] Lymphocytes/100 leukocytes 25 % Normal 24-43 [facility] Comment on above: Performed By: #### C DP, CMPX, CRP, SED, GLYHGB ####[address] [address] MCH 25.7 pg Normal 25.2-33.5 [facility] Comment on above: Performed By: #### C DP, CMPX, CRP, SED, GLYHGB ####[address] [address] MCHC mass conc (RBC) 29.9 g/dL Normal 28.4-34.8 [facility] Comment on above: Performed By: #### C DP, CMPX, CRP, SED, GLYHGB ####[address] [address] MCV 86.0 fL Normal 82.6-102.9 [facility] Comment on above: Performed By: #### C DP, CMPX, CRP, SED, GLYHGB ####[address] [address] Monocytes 0.53 10*3/uL Normal 0.10-1.20 [facility] Comment on above: Performed By: #### C DP, CMPX, CRP, SED, GLYHGB ####[address] [address] Monocytes/100 leukocytes 7 % Normal 3-12 [facility] Comment on above: Performed By: #### C DP, CMPX, CRP, SED, GLYHGB ####[address] [address] Neutrophil (Seg) 63 % Normal 36-65 [facility] Comment on above: Performed By: #### C DP, CMPX, CRP, SED, GLYHGB ####[address] [address] Platelet mean volume (PMV) 9.9 fL Normal 8.1-13.5 [facility] Comment on above: Performed By: #### C DP, CMPX, CRP, SED, GLYHGB ####[address] [address] Platelets 257 10*3/uL Normal 138-453 [facility] Comment on above: Performed By: #### C DP, CMPX, CRP, SED, GLYHGB ####[address] [address] WBC (Leukocytes) 8.0 10*3/uL Normal 3.5-11.3 [facility] Comment on above: Performed By: #### C DP, CMPX, CRP, SED, GLYHGB ####[address] [address] Auto Diff Performed NOT REPORTED Normal [facility] Comment on above: Performed By: #### C DP, CMPX, CRP, SED, GLYHGB ####[facility] [id number] [place], [place] [id number] Platelets NOT REPORTED Normal [facility] Comment on above: Performed By: #### C DP, CMPX, CRP, SED, GLYHGB ####[facility] [id number] [place], [place] [id number] WBC Morphology NOT REPORTED Normal [facility] Comment on above: Performed By: #### C DP, CMPX, CRP, SED, GLYHGB ####[facility] [id number] [place] [address] [id number] Discharge Summaryon 04-13-19 18 HIM IP Note OR Income Tax Manager Normal [facility] Plan of Careon 04-13-2017 HIM IP Note OR Income Tax Manager Normal [facility] HIM IP Note OR Income Tax Manager Normal [facility] Progress Noteon 04-13-2017 HIM IP Note OR Income Tax Manager Normal [facility] HIM IP Note OR Income Tax Manager Normal [facility] HIM IP Note OR Income Tax Manager Normal [facility] HIM IP Note OR Income Tax Manager Normal [facility] HIM IP Note OR Income Tax Manager Normal [facility] HIM IP Note OR Income Tax Manager Normal [facility] Basic Metabolic Profon 04-12 (cont.) Normal [facility] Comment on above: Result Comment: Aver age GFR for 50-59 years old: 93 mL/min/1.73sq mChronic Kidney Disease: <60 mL/min/1.73sq mKidney failure: <15 mL/min/1.73sq meGFR calculated using average adult body mass. Additional eGFR calculator available at:http://www.[employer]/multiple_crcl_2012.htmLoma [facility] [address], [place] [id number] ([phone] Performed By: #### C DP, CMPX, CRP, SED, GLYHGB ####[address] [place] [address] Anion gap 8 mmol/L Low 9-17 [facility] Comment on above: Performed By: #### C DP, CMPX, CRP, SED, GLYHGB ####[address] [address] Calcium 8.8 mg/dL Normal 8.6-10.4 [facility] Comment on above: Performed By: #### C DP, CMPX, CRP, SED, GLYHGB ####[address] [address] Chloride 107 mmol/L Normal 98-107 [facility] Comment on above: Performed By: #### C DP, CMPX, CRP, SED, GLYHGB ####[address] [address] CO2 23 mmol/L Normal 20-31 [facility] Comment on above: Performed By: #### C DP, CMPX, CRP, SED, GLYHGB ####[address] [address] Creatinine 1.01 mg/dL Normal 0.70-1.20 [facility] Comment on above: Performed By: #### C DP, CMPX, CRP, SED, GLYHGB ####[address] [address] eGFR (non-black) mL/min/{1.73_m2} Normal >60 [facility] Comment on above: Performed By: #### C DP, CMPX, CRP, SED, GLYHGB ####[address] [address] Glucose mass conc 172 mg/dL High 70-99 [facility] Comment on above: Performed By: #### C DP, CMPX, CRP, SED, GLYHGB ####[address] [address] Potassium molar conc 3.9 mmol/L Normal 3.7-5.3 [facility] Comment on above: Performed By: #### C DP, CMPX, CRP, SED, GLYHGB ####[address] [address] Sodium 138 mmol/L Normal 135-144 [facility] Comment on above: Performed By: #### C DP, CMPX, CRP, SED, GLYHGB ####[address] [address] Urea nitrogen 15 mg/dL Normal 6-20 [facility] Comment on above: Performed By: #### C DP, CMPX, CRP, SED, GLYHGB ####[address] [address] BUN/CRE Ratio NOT REPORTED Normal -20 [facility] Comment on above: Performed By: #### C DP, CMPX, CRP, SED, GLYHGB ####[address] [address] Staging: NOT REPORTED Normal [facility] Comment on above: Performed By: #### C DP, CMPX, CRP, SED, GLYHGB ####[address] [address] CBC with Diffon 04-12-2017 Abs. Basophil <0.03 Normal 0.00-0.20 [facility] Comment on above: Performed By: #### C DP, CMPX, CRP, SED, GLYHGB ####[address] [address] Abs.Neutrophil (Seg) 4.31 k/uL Normal 1.50-8.10 [facility] Comment on above: Performed By: #### C DP, CMPX, CRP, SED, GLYHGB ####[address] [address] Basophils/100 WBC Auto (Bld) 0 % Normal 0-2 [facility] Comment on above: Performed By: #### C DP, CMPX, CRP, SED, GLYHGB ####[address] [address] Eosinophils 0.21 10*3/uL Normal 0.00-0.44 [facility] Comment on above: Performed By: #### C DP, CMPX, CRP, SED, GLYHGB ####[address] [address] Eosinophils/100 leukocytes 3 % Normal 1-4 [facility] Comment on above: Performed By: #### C DP, CMPX, CRP, SED, GLYHGB ####[address] [address] Erythrocyte distribution width Auto Ratio (RBC) 14.7 % High 11.8-14.4 [facility] Comment on above: Performed By: #### C DP, CMPX, CRP, SED, GLYHGB ####[address] [address] Erythrocyte morphology ANISOCYTOSIS PRESENT Normal [facility] Comment on above: Result Comment: [address] [address] Performed By: #### C DP, CMPX, CRP, SED, GLYHGB ####[address] [address] Erythrocytes (RBC) 3.45 10*6/uL Low 4.21-5.77 [facility] Comment on above: Performed By: #### C DP, CMPX, CRP, SED, GLYHGB ####[address] [address] Granulocytes/100 WBC (Bld) 0.22 k/uL Normal 0.00-0.30 [facility] Comment on above: Performed By: #### C DP, CMPX, CRP, SED, GLYHGB ####[address] [address] Hematocrit (HCT) 28.9 % Low 40.7-50.3 [facility] Comment on above: Performed By: #### C DP, CMPX, CRP, SED, GLYHGB ####[address] [address] Hemoglobin mass conc (Bld) 8.9 g/dL Low 13.0-17.0 [facility] Comment on above: Performed By: #### C DP, CMPX, CRP, SED, GLYHGB ####[address] [address] Immature granulocytes #/vol (Bld) 3 % High 0 [facility] Comment on above: Performed By: #### C DP, CMPX, CRP, SED, GLYHGB ####[address] [address] Lymphocytes 1.83 10*3/uL Normal 1.10-3.70 [facility] Comment on above: Performed By: #### C DP, CMPX, CRP, SED, GLYHGB ####[address] [address] Lymphocytes/100 leukocytes 26 % Normal 24-43 [facility] Comment on above: Performed By: #### C DP, CMPX, CRP, SED, GLYHGB ####[address] [address] MCH 25.8 pg Normal 25.2-33.5 [facility] Comment on above: Performed By: #### C DP, CMPX, CRP, SED, GLYHGB ####[address] [place] [address] MCHC mass conc (RBC) 30.8 g/dL Normal 28.4-34.8 [facility] Comment on above: Performed By: #### C DP, CMPX, CRP, SED, GLYHGB ####[address] [address] MCV 83.8 fL Normal 82.6-102.9 [facility] Comment on above: Performed By: #### C DP, CMPX, CRP, SED, GLYHGB ####[address] [address] Monocytes 0.58 10*3/uL Normal 0.10-1.20 [facility] Comment on above: Performed By: #### C DP, CMPX, CRP, SED, GLYHGB ####[address] [address] Monocytes/100 leukocytes 8 % Normal 3-12 [facility] Comment on above: Performed By: #### C DP, CMPX, CRP, SED, GLYHGB ####[address] [address] Neutrophil (Seg) 60 % Normal 36-65 [facility] Comment on above: Performed By: #### C DP, CMPX, CRP, SED, GLYHGB ####[address] [address] Platelet mean volume (PMV) 9.3 fL Normal 8.1-13.5 [facility] Comment on above: Performed By: #### C DP, CMPX, CRP, SED, GLYHGB ####[address] [address] Platelets 231 10*3/uL Normal 138-453 [facility] Comment on above: Performed By: #### C DP, CMPX, CRP, SED, GLYHGB ####[facility] [address] [place] [address] WBC (Leukocytes) 7.2 10*3/uL Normal 3.5-11.3 [facility] Comment on above: Performed By: #### C DP, CMPX, CRP, SED, GLYHGB ####[address] [address] Auto Diff Performed NOT REPORTED Normal [facility] Comment on above: Performed By: #### C DP, CMPX, CRP, SED, GLYHGB ####[address] [address] Platelets NOT REPORTED Normal [facility] Comment on above: Performed By: #### C DP, CMPX, CRP, SED, GLYHGB ####[address] [address] WBC Morphology NOT REPORTED Normal [facility] Comment on above: Performed By: #### C DP, CMPX, CRP, SED, GLYHGB ####[address] [address] Cult,Aerobe/Anaerobeon 04-12 Neutrophils Specimen Description .TISSUE RIGHT LATERAL ANKLE POST IRRIGATIONSpecial Requests NOT REPORTEDDirect Exam NO NEUTROPHILS SEEN RARE GRAM POSITIVE COCCI IN PAIRS Culture METHICILLIN RESISTANT STAPHYLOCOCCUS AUREUS LIGHT GROWTH STREPTOCOCCI, BETA HEMOLYTIC GROUP C SCANT GROWTH DIPHTHEROIDS LIGHT GROWTH NO ANAEROBIC ORGANISMS ISOLATED AT 5 DAYS Report Status FINAL 04/15/2017SUSCEPTIBILITYOrg anism MRSAMethod MICPenicillin >=0.5 RESISTANTCefoxitin Screen NOT REPORTEDCiprofloxacin NOT REPORTEDClindamycin <=0.25 SUSCEPTIBLEErythromycin <=0.25 SUSCEPTIBLEGentamicin <=0.5 SUSCEPTIBLEInduced Clind Resist NOT REPORTEDLevofloxacin 4 INTERMEDIATELinezolid NOT REPORTEDMoxifloxacin NOT REPORTEDNitrofurantoin NOT REPORTEDOxacillin >=4 RESISTANTSynercid NOT REPORTEDRifampin NOT REPORTEDTetracycline <=1 SUSCEPTIBLETigecycline NOT REPORTEDTrimethoprim/Sulfa <=10 SUSCEPTIBLEVancomycin 1 SUSCEPTIBLE Normal [facility] Comment on above: Performed By: #### A ANC ####[address] [address] Plan of Careon 04-12-2017 HIM IP Note OR Income Tax Manager Normal [facility] HIM IP Note OR Income Tax Manager Normal [facility] HIM IP Note OR Income Tax Manager Normal [facility] HIM IP Note OR Income Tax Manager Normal [facility] HIM IP Note OR Income Tax Manager Normal [facility] Progress Noteon 04-12-2017 HIM IP Note OR Income Tax Manager Normal [facility] HIM IP Note OR Income Tax Manager Normal [facility] HIM IP Note OR Income Tax Manager Normal [facility] HIM IP Note OR Income Tax Manager Normal [facility] HIM IP Note OR Income Tax Manager Normal [facility] HIM IP Note OR Income Tax Manager Normal [facility] Basic Metabolic Profon 04-11 (cont.) Normal [facility] Comment on above: Result Comment: Aver age GFR for 50-59 years old: 93 mL/min/1.73sq mChronic Kidney Disease: <60 mL/min/1.73sq mKidney failure: <15 mL/min/1.73sq meGFR calculated using average adult body mass. Additional eGFR calculator available at:http://www.[employer]/multiple_crcl_2012.htmMet[facility] [address] [place] [address] Performed By: #### C DP, CMPX, CRP, SED, GLYHGB ####[address] [place], [place] [id number] Anion gap 14 mmol/L Normal 9-17 [facility] Comment on above: Performed By: #### C DP, CMPX, CRP, SED, GLYHGB ####[facility] [address] [place] [address] Calcium 8.2 mg/dL Low 8.6-10.4 [facility] Comment on above: Performed By: #### C DP, CMPX, CRP, SED, GLYHGB ####[address] [address] Chloride 101 mmol/L Normal 98-107 [facility] Comment on above: Performed By: #### C DP, CMPX, CRP, SED, GLYHGB ####[address] [address] CO2 21 mmol/L Normal 20-31 [facility] Comment on above: Performed By: #### C DP, CMPX, CRP, SED, GLYHGB ####[address] [address] Creatinine 1.16 mg/dL Normal 0.70-1.20 [facility] Comment on above: Performed By: #### C DP, CMPX, CRP, SED, GLYHGB ####[address] [address] eGFR (non-black) mL/min/{1.73_m2} Normal >60 [facility] Comment on above: Performed By: #### C DP, CMPX, CRP, SED, GLYHGB ####[address] [address] Glucose mass conc 153 mg/dL High 70-99 [facility] Comment on above: Performed By: #### C DP, CMPX, CRP, SED, GLYHGB ####[address] [address] Potassium molar conc 4.0 mmol/L Normal 3.7-5.3 [facility] Comment on above: Performed By: #### C DP, CMPX, CRP, SED, GLYHGB ####[address] [place] [address] Sodium 136 mmol/L Normal 135-144 [facility] Comment on above: Performed By: #### C DP, CMPX, CRP, SED, GLYHGB ####[address] [address] Urea nitrogen 18 mg/dL Normal - [facility] Comment on above: Performed By: #### C DP, CMPX, CRP, SED, GLYHGB ####[address] [address] BUN/CRE Ratio NOT REPORTED Normal - [facility] Comment on above: Performed By: #### C DP, CMPX, CRP, SED, GLYHGB ####[address] [address] Staging: NOT REPORTED Normal [facility] Comment on above: Performed By: #### C DP, CMPX, CRP, SED, GLYHGB ####[address] [address] C-Reactive Proteinon 018 C reactive protein (CRP) 55.5 mg/L High 0.0-5.0 [facility] Comment on above: Result Comment: [address] [address] Performed By: #### C DP, CMPX, CRP, SED, GLYHGB ####[facility] [address] [place] [address] CBC with Diffon 04-11-2017 Abs. Basophil <0.03 Normal 0.00-0.20 [facility] Comment on above: Performed By: #### C DP, CMPX, CRP, SED, GLYHGB ####[address] [address] Abs.Neutrophil (Seg) 5.04 k/uL Normal 1.50-8.10 [facility] Comment on above: Performed By: #### C DP, CMPX, CRP, SED, GLYHGB ####[address] [address] Basophils/100 WBC Auto (Bld) 0 % Normal 0-2 [facility] Comment on above: Performed By: #### C DP, CMPX, CRP, SED, GLYHGB ####[address] [address] Eosinophils 0.24 10*3/uL Normal 0.00-0.44 [facility] Comment on above: Performed By: #### C DP, CMPX, CRP, SED, GLYHGB ####[address] [address] Eosinophils/100 leukocytes 3 % Normal 1-4 [facility] Comment on above: Performed By: #### C DP, CMPX, CRP, SED, GLYHGB ####[address] [address] Erythrocyte distribution width Auto Ratio (RBC) 14.8 % High 11.8-14.4 [facility] Comment on above: Performed By: #### C DP, CMPX, CRP, SED, GLYHGB ####[address] [address] Erythrocyte morphology ANISOCYTOSIS PRESENT Normal [facility] Comment on above: Result Comment: [address] [place] [address] Performed By: #### C DP, CMPX, CRP, SED, GLYHGB ####[address] [address] Erythrocytes (RBC) 3.36 10*6/uL Low 4.21-5.77 [facility] Comment on above: Performed By: #### C DP, CMPX, CRP, SED, GLYHGB ####[address] [address] Granulocytes/100 WBC (Bld) 0.09 k/uL Normal 0.00-0.30 [facility] Comment on above: Performed By: #### C DP, CMPX, CRP, SED, GLYHGB ####[address] [address] Hematocrit (HCT) 28.8 % Low 40.7-50.3 [facility] Comment on above: Performed By: #### C DP, CMPX, CRP, SED, GLYHGB ####[address] [address] Hemoglobin mass conc (Bld) 8.8 g/dL Low 13.0-17.0 [facility] Comment on above: Performed By: #### C DP, CMPX, CRP, SED, GLYHGB ####[address] [address] Immature granulocytes #/vol (Bld) 1 % High 0 [facility] Comment on above: Performed By: #### C DP, CMPX, CRP, SED, GLYHGB ####[address] [address] Lymphocytes 1.73 10*3/uL Normal 1.10-3.70 [facility] Comment on above: Performed By: #### C DP, CMPX, CRP, SED, GLYHGB ####[address] [address] Lymphocytes/100 leukocytes 23 % Low 24-43 [facility] Comment on above: Performed By: #### C DP, CMPX, CRP, SED, GLYHGB ####[address] [address] MCH 26.2 pg Normal 25.2-33.5 [facility] Comment on above: Performed By: #### C DP, CMPX, CRP, SED, GLYHGB ####[address] [address] MCHC mass conc (RBC) 30.6 g/dL Normal 28.4-34.8 [facility] Comment on above: Performed By: #### C DP, CMPX, CRP, SED, GLYHGB ####[address] [address] MCV 85.7 fL Normal 82.6-102.9 [facility] Comment on above: Performed By: #### C DP, CMPX, CRP, SED, GLYHGB ####[address] [address] Monocytes 0.56 10*3/uL Normal 0.10-1.20 [facility] Comment on above: Performed By: #### C DP, CMPX, CRP, SED, GLYHGB ####[address] [address] Monocytes/100 leukocytes 7 % Normal 3-12 [facility] Comment on above: Performed By: #### C DP, CMPX, CRP, SED, GLYHGB ####[address] [address] Neutrophil (Seg) 66 % High 36-65 [facility] Comment on above: Performed By: #### C DP, CMPX, CRP, SED, GLYHGB ####[address] [address] Platelet mean volume (PMV) 9.9 fL Normal 8.1-13.5 [facility] Comment on above: Performed By: #### C DP, CMPX, CRP, SED, GLYHGB ####[address] [address] Platelets 264 10*3/uL Normal 138-453 [facility] Comment on above: Performed By: #### C DP, CMPX, CRP, SED, GLYHGB ####[address] [address] WBC (Leukocytes) 7.7 10*3/uL Normal 3.5-11.3 [facility] Comment on above: Performed By: #### C DP, CMPX, CRP, SED, GLYHGB ####[facility] [address] [place] [address] Auto Diff Performed NOT REPORTED Normal [facility] Comment on above: Performed By: #### C DP, CMPX, CRP, SED, GLYHGB ####[address] [address] Platelets NOT REPORTED Normal [facility] Comment on above: Performed By: #### C DP, CMPX, CRP, SED, GLYHGB ####[address] [address] WBC Morphology NOT REPORTED Normal [facility] Comment on above: Performed By: #### C DP, CMPX, CRP, SED, GLYHGB ####[address] [address] Hemoglobin A1Con 04-11-2017 Glucose mass conc 315 mg/dL Normal [facility] Comment on above: Result Comment: The ADA and AACC recommend providing the estimated average glucose result to permit better patient understanding of their HBA1c result.[address] [address] Performed By: #### C DP, CMPX, CRP, SED, GLYHGB ####[address] [address] Hemoglobin A1c/Hemoglobin.tot al mass fraction (Bld) 12.6 % High 4.0-6.0 [facility] Comment on above: Performed By: #### C DP, CMPX, CRP, SED, GLYHGB ####[address] [place], [place] [id number] Plan of Careon 04-11-2017 HIM IP Note OR Income Tax Manager Normal [facility] HIM IP Note OR Income Tax Manager Normal [facility] HIM IP Note OR Income Tax Manager Normal [facility] HIM IP Note OR Income Tax Manager Normal [facility] Progress Noteon 04-11-2017 HIM IP Note OR Income Tax Manager Normal [facility] HIM IP Note OR Income Tax Manager Normal [facility] HIM IP Note OR Income Tax Manager Normal [facility] HIM IP Note OR Income Tax Manager Normal [facility] Consulton 04-10-2017 HIM IP Note OR Income Tax Manager Normal [facility] Cult,Urine,Cathon 04-10-2017 Cult,Urine,Cath Specimen Description .CATHETERIZED URINE Special Requests NOT REPORTED Culture PRESUMPTIVE ID: LEO ALBICANS >[id number] CFU/ML Report Status FINAL 04/10/2017 Normal [facility] Comment on above: Performed By: #### C DP, CMPX, CRP, SED, GLYHGB ####[id number] Influenza A + B, PCRon 04-10 Influenza A + B, PCR Specimen Description .NASOPHARYNGEAL SWABSpecial Requests NOT REPORTEDDirect Exam NEGATIVE: Influenza A and B RNA not detected by nucleic acid amplification. The results obtained should be interpreted in conjunction with clinical findings and other laboratory markers. The performance characterisitics of this molecular test were validated by the molecular microbiology department of [facility] [employer]. Report Status FINAL 04/10/2017 [facility] Comment on above: Performed By: #### C DP, CMPX, CRP, SED, GLYHGB ####[address] [place], [place] [id number] OPERATIVE REPORTon 8 OPERATIVE REPORT [address] [address] OPERATIVE REPORTPATIENT NAME: GANGA STINSON : 1960MED REC NO: [id number] ROOM: [id number] NO: [id number] ADMIT DATE: 04/09/2017PROVIDER: William Foster-JudgeDATE OF PROCEDURE: 04/10/2016SURGEON: William Foster-Change Consultant, DPMASSISTANT: Benito Chacon DPM, PGY-1PREOPERATIVE DIAGNOSES:1. Deep space abscess, right heel.2. Chronic infected diabetic ulceration, right lateral ankle.3. Cellulitis.4. History of osteomyelitis and fifth digit amputation.5. Paraplegia secondary to cauda equina syndrome.6. Diabetes mellitus.7. Morbid obesity.8. Hypertension.9. Depression.10. Sleep apnea.POSTOPERATIVE DIAGNOSES:1. Deep space abscess, right heel.2. Chronic infected diabetic ulceration, right lateral ankle.3. Cellulitis.4. History of osteomyelitis and fifth digit amputation.5. Paraplegia secondary to cauda equina syndrome.6. Diabetes mellitus.7. Morbid obesity.8. Hypertension.9. Depression.10. Sleep apnea.ANESTHESIA: MAC, local. Due to recent episodes of vomiting, theanesthesia plan was converted to general anesthesia for this procedure.HEMOSTASIS: None.ESTIMATED BLOOD LOSS: Less than 10 mL.MATERIALS: Aquacel silver dressing to lateral ankle and medial heel.INJECTABLES: 1% Xylocaine plain, 10 mL preop and 10 mL postop.SPECIMENS: Tissue for microbiology both pre and post irrigation from theankle and medial heel regions, treated as separate surgical sites.FINDINGS: Deep ulceration with probe to bone, lateral ankle. No evidenceof bone insufficiency with deep palpation and manipulation usinginstrumentation. Ulceration borders appear inflamed are well-rounded andthere is no evidence of sarahi purulence from this wound, which measures 2.0cm x 1.2 cm x 0.75 cm in its greatest dimensions. The medial heelulceration measures 5.0 cm x 3.0 cm x 0.5 cm in its greatest dimensions. Adjacent to this medial heel ulceration is an enlarged well-organized andwell-adhered eschar measuring 3.5 cm x 1.7 cm and approximately 0.2 cm inthickness. Evidence of purulence emanating from the plantar medial heelregion in the region of the medial calcaneal tubercle. With deep palpationand manipulation, very small amounts of hemorrhagic purulence is expressed.With incision and drainage and deep debridement, there is no residualevidence of necrotic debris, abnormal drainage, malodor, or necroticchange. No exposed bone. The fascia remains intact over the calcaneus. All the surrounding subcutaneous fat appears well-organized, withoutevidence of liquefaction necrosis.COMPLICATIONS: None.CONDITION: Stable. The patient tolerated the procedure and anesthesiawell. Pedal pulses and neurovascular status and vital signs all remainunchanged from preoperative findings. The patient, having tolerated theprocedure and anesthesia well, would be taken to the floor for recovery. The patient has a primary director of guidance in public schools, Dr. 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 The department of Infectious Disease,Internal Medicine, and specialty medicine services will provide care duringthe inpatient admission. He will return to the care of Dr. Min [facility], [place], upon discharge.INDICATIONS FOR OPERATION: This is a 56-year-old obese diabetic male whohas suffered from chronic nonhealing wounds about the right ankle and heelfor a prolonged period of time. He has been under the direct care of apodiatrist and other medical specialists to care for his diabetes,hypertension, obesity, and cauda equina syndrome. Despite this care, hehas met chronic nonhealing ulcerations and infection now, which haveworsened to a degree to prompt admission. The patient is on IV antibioticsas prescribed by the department of Infectious Disease and podiatryconsultation is requested for surgical debridement. I have discussed theabove mentioned procedures and their associated risks and benefits in fulldetail with the patient. I did describe this scenario as limb salvage, aschronic heel ulcerations and the risk of osteomyelitis in the heel canoften be limb-threatening. Our goals today are eradication of infection,which may take a multi-stage debridement plan. Today, we will perform anincision and drainage and deep wound debridements for both the lateralankle and for the medial heel and arch region in the hopes of reducing, ifnot eliminating the infection there. Deep tissue cultures, if not bonecultures, will be obtained in this setting. All questions have beenanswered to the patient's satisfaction. No guarantees as to the outcomehave been given, written, verbal, or implied. Radiographic informationcorrelates with clinical findings. Plain film radiographs and magneticresonance imaging have been reviewed in detail.DETAILED DESCRIPTION OF THE OPERATION: The patient was brought into thesurgical suite and placed on the operating table in the supine position. All appropriate bolsters and paddings were applied, doing it about thepatient as necessary. The above mentioned anesthetic agent was deliveredin a posterior tibial block and in a lateral ankle block to provideregional anesthesia. General anesthesia was provided by the department ofanesthesia without complication. Sterile prep and drape of the rightextremity was completed and a lateral decubitus position was maintained toexpose the lateral ankle and later the medial calcaneus and arch.The lateral ankle site was exposed and treated as a separate site to beginthis procedure. Incision and drainage was performed through this chroniculceration in a linear fashion to liberate the wound edges and allowexploration of the soft tissues about the periphery of the lateralmalleolus. With incision and drainage, healthy bleeding potential wasrealized. Surrounding erythema was blanchable and was confined in a 2 cmband about the entire periphery of the ulceration. Deep manipulation withblunt dissection was performed about the entire periphery of the distalmalleolus without evidence of deep space abscess, sinus tract formation, ortunneling. No malodor or unusual necrotic debris was seen in this setting.Copious irrigation was completed with the benefit of 3 liters of normalsaline with pulsatile lavage. Post irrigation, tissue specimens wereobtained after refreshing the sterile field. A final exploration of thewound failed to reveal any evidence of necrotic debris, abnormal drainage,or malodor. An Aquacel fortified with silver would be applied atopbacitracin ointment and a mildly compressive dressing would be applied tothe surgical site. This surgical site then would be taped off andpreserved separately from the medial calcaneus.The rearfoot now would be prepared as a separate surgical site andattention would be directed to the right medial rearfoot and arch. Anenlarged geographic-shaped ulceration about the most plantar and distalaspect of the calcaneus measured approximately 5.0 cm x 3.0 cm x 0.5 cm inits greatest dimensions. A circular eschar which appeared dried andwell-adhered to the underlying tissues was stable-appearing and did notwarrant excision. This eschar measured 3.5 cm x 1.7 cm and isapproximately 0.2 cm in thickness. Deep palpation and manipulationexpressed purulence from the most distal-medial aspect of the heel. Themost proximal arch area could be palpated and would express hemorrhagicpurulent material in small amounts. A linear incision would be made alongthe zone of transition between the medial skin and the plantar skin andthis incision was proximally 6 cm in length. Incision and drainage herewould allow hemorrhagic purulence to be evacuated and healthy bleedingpotential was realized here. The periosteum and deep fascia over thecalcaneus, as well as the adjacent subcutaneous tissues remained intact. There was no exposed bone. Subcutaneous fat appears to have retained itslobular appearance and there is no evidence of liquefaction necrosis. Copious irrigation then was completed with the benefit of 6.5 liters ofnormal saline and a final exploration of that wound would reveal healthybleeding potential, healthy subcutaneous tissues, and intrinsicmusculature. There was no evidence of necrotic debris, abnormal drainage,or sinus formation there. The plantar vault of the foot appeared free ofabscess formations. Satisfied with the procedure, the wound would bemildly compressed from plantar to dorsal and the wound edges would coaptnicely without tension. The sterile field would be refreshed and deeptissue cultures would be obtained. These would be submitted tomicrobiology and a dressing then would be applied to the medial heel usingbacitracin ointment and a sterile nonadherent dressing. With the footpositioned at 90 degrees to the leg, a sterile compressive dressing wouldbe applied and a modified Schafer compression dressing would be applied usingmultiple layers of elasticized cast padding alternating with Olga wrapcompression layers x2. Pedal pulses, neurovascular status, and vital signsremained unchanged from preoperative findings. The patient, havingtolerated the procedure and anesthesia well, would be taken to the floorfor final recovery. He would follow up with his usual director of guidance in public schools on anoutpatient basis. The departments of Internal Medicine and InfectiousDisease will guide our care in the interim. Cultures should be availablewith sensitivities in approximately 72 hours and consider dischargeplanning then.WILLIAM FOSTER-JUDGED: 04/10/2017 15:31:53 [id number]/[id number]#: [id number] Doc#: [id number]: Yakov Haleycarly [facility] Department of Infectious Disease Internal Medicine Normal [facility] Plan of Careon 04-10-2017 HIM IP Note OR Income Tax Manager Normal [facility] HIM IP Note OR Income Tax Manager Normal [facility] Progress Noteon 04-10-2017 HIM IP Note OR Income Tax Manager Normal [facility] HIM IP Note OR Income Tax Manager Normal [facility] XR ANKLE RIGHT STANDARDon XR ANKLE RIGHT STANDARD EXAMINATION:3 VIEWS OF THE RIGHT ANKLE04/09/2017 10:04 pmCOMPARISON:04/09/2017 MRI right footHISTORY:ORDERING SYSTEM PROVIDED HISTORY: osteomyelitisTECHNOLOGIST PROVIDED HISTORY:Reason for exam:->osteomyelitisFINDING S:No fracture or dislocation is identified. There is a cortical thinning andirregularity of the lateral cortex of the lateral malleolus with adjacentsoft tissue edema consistent with cellulitis and osteomyelitis. Large skinulceration is present in this location. Large plantar calcaneal spur.IMPRESSION: Large soft tissue ulcer overlying the lateral malleolus with underlyingosseous changes consistent with cellulitis and osteomyelitis.Interpreted by:SAMMI Bakerigned by:Roberto Carlos Cavazos MD04/09/17inal result Normal [facility] C-Reactive Proteinon 018 C reactive protein (CRP) 114.3 mg/L High 0.0-5.0 [facility] Comment on above: Result Comment: [address] [place] [address] Performed By: #### C DP, CMPX, CRP, SED, GLYHGB ####[facility] [address] [place] [address] CBC with Diffon 04-09-2017 Abs. Basophil <0.03 Normal 0.00-0.20 [facility] Comment on above: Performed By: #### C DP, CMPX, CRP, SED, GLYHGB ####[facility] [address] [place] [address] Abs.Neutrophil (Seg) 5.95 k/uL Normal 1.50-8.10 [facility] Comment on above: Performed By: #### C DP, CMPX, CRP, SED, GLYHGB ####[address] [address] Basophils/100 WBC Auto (Bld) 0 % Normal 0-2 [facility] Comment on above: Performed By: #### C DP, CMPX, CRP, SED, GLYHGB ####[address] [address] Eosinophils 0.11 10*3/uL Normal 0.00-0.44 [facility] Comment on above: Performed By: #### C DP, CMPX, CRP, SED, GLYHGB ####[address] [address] Eosinophils/100 leukocytes 1 % Normal 1-4 [facility] Comment on above: Performed By: #### C DP, CMPX, CRP, SED, GLYHGB ####[address] [address] Erythrocyte distribution width Auto Ratio (RBC) 15.0 % High 11.8-14.4 [facility] Comment on above: Performed By: #### C DP, CMPX, CRP, SED, GLYHGB ####[address] [address] Erythrocyte morphology ANISOCYTOSIS PRESENT Normal [facility] Comment on above: Result Comment: [address] [address] Performed By: #### C DP, CMPX, CRP, SED, GLYHGB ####[address] [address] Erythrocytes (RBC) 3.50 10*6/uL Low 4.21-5.77 [facility] Comment on above: Performed By: #### C DP, CMPX, CRP, SED, GLYHGB ####[address] [address] Granulocytes/100 WBC (Bld) 0.09 k/uL Normal 0.00-0.30 [facility] Comment on above: Performed By: #### C DP, CMPX, CRP, SED, GLYHGB ####[address] [address] Hematocrit (HCT) 29.9 % Low 40.7-50.3 [facility] Comment on above: Performed By: #### C DP, CMPX, CRP, SED, GLYHGB ####[address] [address] Hemoglobin mass conc (Bld) 9.0 g/dL Low 13.0-17.0 [facility] Comment on above: Performed By: #### C DP, CMPX, CRP, SED, GLYHGB ####[address] [address] Immature granulocytes #/vol (Bld) 1 % High 0 [facility] Comment on above: Performed By: #### C DP, CMPX, CRP, SED, GLYHGB ####[address] [address] Lymphocytes 1.60 10*3/uL Normal 1.10-3.70 [facility] Comment on above: Performed By: #### C DP, CMPX, CRP, SED, GLYHGB ####[address] [address] Lymphocytes/100 leukocytes 19 % Low 24-43 [facility] Comment on above: Performed By: #### C DP, CMPX, CRP, SED, GLYHGB ####[address] [address] MCH 25.7 pg Normal 25.2-33.5 [facility] Comment on above: Performed By: #### C DP, CMPX, CRP, SED, GLYHGB ####[address] [address] MCHC mass conc (RBC) 30.1 g/dL Normal 28.4-34.8 [facility] Comment on above: Performed By: #### C DP, CMPX, CRP, SED, GLYHGB ####[address] [address] MCV 85.4 fL Normal 82.6-102.9 [facility] Comment on above: Performed By: #### C DP, CMPX, CRP, SED, GLYHGB ####[address] [address] Monocytes 0.53 10*3/uL Normal 0.10-1.20 [facility] Comment on above: Performed By: #### C DP, CMPX, CRP, SED, GLYHGB ####[address] [address] Monocytes/100 leukocytes 6 % Normal 3-12 [facility] Comment on above: Performed By: #### C DP, CMPX, CRP, SED, GLYHGB ####[address] [address] Neutrophil (Seg) 73 % High 36-65 [facility] Comment on above: Performed By: #### C DP, CMPX, CRP, SED, GLYHGB ####[address] [address] Platelet mean volume (PMV) 9.6 fL Normal 8.1-13.5 [facility] Comment on above: Performed By: #### C DP, CMPX, CRP, SED, GLYHGB ####[address] [place] [address] Platelets 224 10*3/uL Normal 138-453 [facility] Comment on above: Performed By: #### C DP, CMPX, CRP, SED, GLYHGB ####[address] [address] WBC (Leukocytes) 8.3 10*3/uL Normal 3.5-11.3 [facility] Comment on above: Performed By: #### C DP, CMPX, CRP, SED, GLYHGB ####[address] [address] Auto Diff Performed NOT REPORTED Normal [facility] Comment on above: Performed By: #### C DP, CMPX, CRP, SED, GLYHGB ####[address] [address] Platelets NOT REPORTED Normal [facility] Comment on above: Performed By: #### C DP, CMPX, CRP, SED, GLYHGB ####[address] [address] WBC Morphology NOT REPORTED Normal [facility] Comment on above: Performed By: #### C DP, CMPX, CRP, SED, GLYHGB ####[address] [address] Comp Metabolic Pr/rfx MGon 0 - (cont.) Normal [facility] Comment on above: Result Comment: Aver age GFR for 50-59 years old: 93 mL/min/1.73sq mChronic Kidney Disease: <60 mL/min/1.73sq mKidney failure: <15 mL/min/1.73sq meGFR calculated using average adult body mass. Additional eGFR calculator available at:[email or web address] [address] Performed By: #### C DP, CMPX, CRP, SED, GLYHGB ####[facility] [place] [address] Alanine aminotransferase (ALT) 9 U/L Normal 5-41 [facility] Comment on above: Performed By: #### C DP, CMPX, CRP, SED, GLYHGB ####[id number] [place] [address] Albumin 2.8 g/dL Low 3.5-5.2 [facility] Comment on above: Performed By: #### C DP, CMPX, CRP, SED, GLYHGB ####[address] [address] Albumin/Globulin Ratio 0.7 {ratio} Low 1.0-2.5 [facility] Comment on above: Performed By: #### C DP, CMPX, CRP, SED, GLYHGB ####[address] [address] Alkaline Phos 57 U/L Normal 40-129 [facility] Comment on above: Performed By: #### C DP, CMPX, CRP, SED, GLYHGB ####[address] [place] [address] Anion gap 13 mmol/L Normal 9-17 [facility] Comment on above: Performed By: #### C DP, CMPX, CRP, SED, GLYHGB ####[facility] [address] [place] [address] Aspartate aminotransferase (AST) 9 U/L Normal <40 [facility] Comment on above: Performed By: #### C DP, CMPX, CRP, SED, GLYHGB ####[address] [place] [address] Bilirubin Ql (U) 0.26 mg/dL Low 0.3-1.2 [facility] Comment on above: Performed By: #### C DP, CMPX, CRP, SED, GLYHGB ####[address] [place] [address] Calcium 8.4 mg/dL Low 8.6-10.4 [facility] Comment on above: Performed By: #### C DP, CMPX, CRP, SED, GLYHGB ####[address] [address] Chloride 99 mmol/L Normal 98-107 [facility] Comment on above: Performed By: #### C DP, CMPX, CRP, SED, GLYHGB ####[address] [address] CO2 21 mmol/L Normal 20-31 [facility] Comment on above: Performed By: #### C DP, CMPX, CRP, SED, GLYHGB ####[address] [address] Creatinine 1.13 mg/dL Normal 0.70-1.20 [facility] Comment on above: Performed By: #### C DP, CMPX, CRP, SED, GLYHGB ####[address] [place] [address] eGFR (non-black) mL/min/{1.73_m2} Normal >60 [facility] Comment on above: Performed By: #### C DP, CMPX, CRP, SED, GLYHGB ####[address] [address] Glucose mass conc 267 mg/dL High 70-99 [facility] Comment on above: Performed By: #### C DP, CMPX, CRP, SED, GLYHGB ####[facility] [place] [address] Potassium molar conc 4.3 mmol/L Normal 3.7-5.3 [facility] Comment on above: Performed By: #### C DP, CMPX, CRP, SED, GLYHGB ####[facility] [address] [place] [address] Protein 7.0 g/dL Normal 6.4-8.3 [facility] Comment on above: Performed By: #### C DP, CMPX, CRP, SED, GLYHGB ####[facility] [address] [place] [address] Sodium 133 mmol/L Low 135-144 [facility] Comment on above: Performed By: #### C DP, CMPX, CRP, SED, GLYHGB ####[facility] [address] [place] [address] Urea nitrogen 22 mg/dL High -20 [facility] Comment on above: Performed By: #### C DP, CMPX, CRP, SED, GLYHGB ####[address] [place] [address] BUN/CRE Ratio NOT REPORTED Normal - [facility] Comment on above: Performed By: #### C DP, CMPX, CRP, SED, GLYHGB ####[address] [place] [address] Staging: NOT REPORTED Normal [facility] Comment on above: Performed By: #### C DP, CMPX, CRP, SED, GLYHGB ####[address] [address] Consulton 04-09-2017 HIM IP Note OR Income Tax Manager Normal [facility] HIM IP Note OR Income Tax Manager Normal [facility] HIM IP Note OR Income Tax Manager Normal [facility] Flu A/B Ag Detectionon 04-09 Flu A/B Ag Detection Specimen Description .NASOPHARYNGEAL SWABSpecial Requests NOT REPORTEDDirect Exam PRESUMPTIVE NEGATIVE for Influenza A + B antigens. PCR testing to confirm this result is available upon request. Specimen will be saved in the laboratory for 7 days. Please call [phone] if PCR testing is indicated. Report Status FINAL 04/09/2017 Normal [facility] Comment on above: Performed By: #### C DP, CMPX, CRP, SED, GLYHGB ####[id number] [place] [address] History and Physicalon 04-09 HIM IP Note OR Income Tax Manager Normal [facility] MRI FOOT RIGHT W WO CONTRAST on 04-09-2017 MRI FOOT RIGHT W WO CONTRAST EXAMINATION:MRI OF THE RIGHT FOOT WITHOUT AND WITH CONTRAST, 04/09/2017 7:35 PMTECHNIQUE:Multiplanar multisequence MRI of the right hindfoot was performed without andwith the administration of intravenous contrast.COMPARISON:Radiogr aphs January 07, 2017HISTORY:ORDERING SYSTEM PROVIDED HISTORY: OSTEOMYELITIS, FOOTTECHNOLOGIST PROVIDED HISTORY:Ordering Physician Provided Reason for Exam: Attn. To heel and ankle.FINDINGS:No acute fracture. No suspicious bone marrow replacing lesion.Large area of soft tissue ulceration is seen adjacent to the posteromedialaspect of the calcaneus. Soft tissue changes extend to the underlying bone.No definite marrow replacement is seen on precontrast T1 weighted images. Onpostcontrast imaging there is reactive type enhancement within the softtissues with a focal area of decreased enhancement likely devascularizedtissue. Minimal enhancement is suspected along the cortex of the calcaneusunderlying the area of soft tissue ulceration.Additional focal area of ulceration is seen along the lateral malleolus.Changes extend to the underlying bone. Minimal T1 weighted signal changesare seen in this area. On postcontrast imaging there is mild increase inenhancement within the lateral malleolus with surrounding reactive typeenhancement within the soft tissues.The distal Achilles tendon appears intact. Anterior extensor tendons areintact. Medial flexor tendons are intact. Lateral flexor tendons are intact.Diffuse muscle atrophy is seen. Degenerative changes are seen within themidfoot. Mild muscle edema is seen, likely reactive.IMPRESSION: Large area of soft tissue ulceration extending to the calcaneus. Earlyosteomyelitis is suspected despite a lack of definitive precontrast [id number] changes.Large ulcer overlying the lateral malleolus with underlying osteomyelitis.Interpreted by:SAMMI Tellezigned by:Jesusita Mock MD04/09/17inal result Normal [facility] Op Noteon 04-09-2017 HIM IP Note OR Income Tax Manager Normal [facility] Plan of Careon 04-09-2017 HIM IP Note OR Income Tax Manager Normal [facility] HIM IP Note OR Income Tax Manager Normal [facility] Progress Noteon 04-09-2017 HIM IP Note OR Income Tax Manager Normal [facility] HIM IP Note OR Income Tax Manager Normal [facility] HIM IP Note OR Income Tax Manager Normal [facility] RSV Ag Detectionon 8 RSV Ag Detection Specimen Description .NASOPHARYNGEAL SWABSpecial Requests NOT REPORTEDDirect Exam Presumptive negative for the presence of RSV antigen. PCR testing to confirm this result is available upon request. Specimen will be saved in the laboratory for 7 days. Please call [phone] if PCR testing is indicated. Report Status FINAL 04/09/2017 Normal [facility] Comment on above: Performed By: #### C DP, CMPX, CRP, SED, GLYHGB ####[employer] [place] [address] Sedimentation Rateon 018 Sedimentation Rate 80 mm High 0-10 [facility] Comment on above: Result Comment: [employer] [address] [facility] [place], [place] [id number] ([phone] Performed By: #### C DP, CMPX, CRP, SED, GLYHGB ####[facility] [address] [place] [address] XR FOOT RIGHT STANDARDon XR FOOT RIGHT STANDARD EXAMINATION:3 VIEWS OF THE RIGHT FOOT, 04/09/2017 9:07 PMCOMPARISON:January 07, 2017HISTORY:ORDERING SYSTEM PROVIDED HISTORY: non healing ulcers. R/O osteomyelitisTECHNOLOGIST PROVIDED HISTORY:Reason for exam:->non healing ulcers. R/O osteomyelitisFINDINGS:Prior 5th transmetatarsal amputation. No acute fracture. Diffuseosteopenia. Moderate narrowing of the 1st metatarsophalangeal joint withsmall osteophytes.Mild diffuse soft tissue swelling. More focal area of ulceration is seenadjacent to the lateral malleolus. There is suggestion of mild irregularityalong the lateral malleolus.IMPRESSION: Focal ulcer adjacent to the lateral malleolus with suspected underlyingosteomyelitis. MRI of the hindfoot/ankle may be helpful for more definitivecharacterization. Interpreted by:SAMMI Tellezigned by:Jesusita Mock MD04/09/17inal result Normal [facility] Vital Signs Date Time Vital Sign Value Performing Clinician Facility 05-06-2023 10:40-0500 Body height 177.8 cm Jonathan Moffett DPM Work Phone: [facility] 05-06-2023 10:40-0500 Body mass index (BMI) [Ratio] 35.87 kg/m2 Jonathan Betina DPM Work Phone: [facility] 05-06-2023 10:40-0500 Body weight 113.4 kg Jonathan Betina DPM Work Phone: [facility] 05-06-2023 10:40-0500 Diastolic blood pressure 80 mm[Hg] Jonathan Moffett DPM Work Phone: [facility] 05-06-2023 10:40-0500 Heart rate 79 /min Jonathan Moffett DPM Work Phone: [facility] 05-06-2023 10:40-0500 Systolic blood pressure 133 mm[Hg] Jonathan Moffett DPM Work Phone: [facility] 11-09-2022 13:10-0400 Blood Pressure Location Parvin VILLA [facility] 11-09-2022 13:10-0400 Diastolic blood pressure 72 mm[Hg] Parvin VILLA [facility] 11-09-2022 13:10-0400 Heart rate 78 /min Parvin VILLA [facility] 11-09-2022 13:10-0400 Systolic blood pressure 148 mm[Hg] Parvin VILLA [facility] 06-26-2022 14:00-0400 Body temperature 97.81 [degF] Eli Pimentel MD Work Phone: [facility] 06-26-2022 14:00-0400 Diastolic blood pressure 62 mm[Hg] Eli Pimentel MD Work Phone: [facility] [employer] [facility] 06-26-2022 14:00-0400 Heart rate 70 /min Eli Pimentel MD Work Phone: [facility] 06-26-2022 14:00-0400 Respiratory rate 18 /min Eli Pimentel MD Work Phone: [facility] 06-26-2022 14:00-0400 SaO2% (BldA) [Mass fraction] 95 % Eli Pimentel MD Work Phone: [facility] 06-26-2022 14:00-0400 Systolic blood pressure 144 mm[Hg] Eli Pimentel MD Work Phone: [facility] 06-26-2022 05:30-0400 Body mass index (BMI) [Ratio] 34.28 kg/m2 Eli Pimentel MD Work Phone: [facility] [employer] 06-26-2022 05:30-0400 Body weight 111.49 kg Eli Pimentel MD Work Phone: [facility] 06-25-2022 04:54-0400 Body height 180.3 cm Eli Pimentel MD Work Phone: [facility] 06-02-2022 12:14-0500 Body height 172.72 cm MD Fidel Abbott Work Phone: [facility] 06-02-2022 12:14-0500 Body mass index (BMI) [Ratio] 41 kg/m2 MD Fidel Abbott Work Phone: [facility] 06-02-2022 12:14-0500 Body weight 122.46 kg MD Fidel Abbott Work Phone: [facility] 06-02-2022 09:52-0500 Body temperature 97 [degF] MD Fidel Abbott Work Phone: [facility] 06-02-2022 09:52-0500 Diastolic blood pressure 73 mm[Hg] MD Fidel Abbott Work Phone: [facility] 06-02-2022 09:52-0500 Heart rate 76 /min MD Fidel Abbott Work Phone: [facility] 06-02-2022 09:52-0500 Systolic blood pressure 155 mm[Hg] MD Fidel Abbott Work Phone: [facility] 03-03-2022 12:06-0500 Body height 180.34 cm MD Fidel Abbott Work Phone: [facility] 03-03-2022 12:06-0500 Body mass index (BMI) [Ratio] 34.8 kg/m2 MD Fidel Abbott Work Phone: [facility] 03-03-2022 12:06-0500 Body weight 113.39 kg MD Fidel Abbott Work Phone: [facility] 03-03-2022 11:37-0500 Body temperature 97.7 [degF] MD Fidel Abbott Work Phone: [facility] 03-03-2022 11:37-0500 Diastolic blood pressure 56 mm[Hg] MD Fidel Abbott Work Phone: [facility] 03-03-2022 11:37-0500 Heart rate 68 /min MD Fidel Abbott Work Phone: [facility] 03-03-2022 11:37-0500 Respiratory rate 18 /min MD Fidel Abbott Work Phone: [facility] 03-03-2022 11:37-0500 Systolic blood pressure 122 mm[Hg] MD Fidel Abbott Work Phone: [facility] Encounters Encounter Date Encounter Type Care Provider Facility Start: 05-13-2023 Telephone encounter Sandhyaosbaldo Grijalva [facility] Comment on above: Prescription Start: 05-06-2023 Chart abstracting Jonathan johnson DPM Work Phone: [facility] Start: 05-06-2023 End: 05-06-2023 ambulatory JONATHAN A BROWN Not Available Start: 05-06-2023 End: 05-06-2023 Office outpatient visit 25 minutes Jonathan Moffett DPM Work Phone: [facility] Comment on above: Cellulitis of left f oot (Primary Dx); Ulcer of left ankle, with necrosis of bone (HCC) (CMS/HCC); Diabetes mellitus due to underlying condition with diabetic polyneuropathy, unspecified whether intermediate insulin use (CMS/HCC); Acute complete paraplegia (CMS/HCC); Acute osteomyelitis of left fibula (CMS/HCC); Foot ulcer, right, with fat layer exposed (CMS/HCC); Venous insufficiency Start: 05-04-2023 ambulatory Cathy Brar Facility: [facility] Start: 04-29-2023 End: 04-29-2023 ambulatory JONATHAN A BROWN Not Available Start: 04-29-2023 End: 04-29-2023 ambulatory JONATHAN A BROWN Not Available Start: 04-15-2023 End: 04-15-2023 ambulatory JONATHAN A BROWN Not Available Start: 04-06-2023 End: 04-06-2023 ambulatory FIDEL ABBOTT Not Available Start: 04-01-2023 End: 04-01-2023 ambulatory JONATHAN A BROWN Not Available Start: 03-18-2023 End: 03-18-2023 ambulatory JONATHAN A BROWN Not Available Start: 03-04-2023 End: 03-04-2023 ambulatory JONATHAN A BROWN Not Available Start: 02-23-2023 End: 02-23-2023 ambulatory JONATHAN A BETINA Not Available Start: 02-23-2023 End: 02-23-2023 ambulatory Cathy Fregosogas Facility:[facility] Start: 02-06-2023 End: 02-13-2023 Evaluation and management of inpatient Fidel Abbott Facility:[facility] Start: 01-19-2023 End: 01-20-2023 ambulatory Parvinfior VILLA Facility: [facility] Start: 01-11-2023 End: 01-12-2023 ambulatory Parvin VILLA Facility:CD:[id number] Start: 11-09-2022 End: 11-10-2022 ambulatory Parvin VILLA Facility:[facility] Start: 11-09-2022 End: 11-09-2022 Patient encounter procedure Parvin VILLA [facility] Start: 10-09-2022 ambulatory Parvin VILLA Facility :[facility] Start: 10-07-2022 End: 10-09-2022 ambulatory Parvin VILLA Facility:CD:[id number] Start: 09-25-2022 End: 09-26-2022 ambulatory FIDEL ABBOTT [facility] Start: 09-18-2022 End: 09-21-2022 ambulatory ASHLEE ERWIN [facility] Start: 09-18-2022 End: 09-20-2022 Subsequent hospital visit by physician Francisca Ultrasound Room 2 [facility] Ultrasound Comment on above: Cauda equina syndrom e (HCC); Neurogenic bladder; Urinary retention; Urinary incontinence without sensory awareness Start: 2022 End: 2022 ambulatory ANGELES NAGY [facility] Start: 07-02-2022 End: 07-03-2022 [facility] Start: 07-02-2022 End: 07-02-2022 Subsequent hospital visit by physician Fidel Abbott MD Work Phone: [facility] Laboratory Comment on above: Acute kidney injury (HCC); Iron deficiency anemia, unspecified iron deficiency anemia type Start: 06-22-2022 End: 06-26-2022 Evaluation and management of inpatient MATIAS DOSS [facility] Start: 06-22-2022 End: 06-26-2022 Evaluation and management of inpatient Eli [facility]imentel MD [facility] Comment on above: Acute kidney injury (HCC) (Primary Dx); Hyperkalemia; Iron deficiency anemia, unspecified iron deficiency anemia type Start: 06-22-2022 End: 06-22-2022 ambulatory ANGELES NAGY [facility] Start: 06-22-2022 End: 06-22-2022 Subsequent hospital visit by physician Fidel Abbott MD Work Phone: [facility] EKG Comment on above: Neurogenic bladder Start: 06-02-2022 End: 06-03-2022 ambulatory Cathy Brar Facility:[facility] Start: 06-02-2022 End: 06-02-2022 ambulatory MD Fidel Abbott Work Phone: [facility] Work Phone: Start: 06-02-2022 End: 06-02-2022 Discharged Recurring MD Fidel Abbott Work Phone: [facility] Work Phone: Start: 03-14-2022 End: 03-15-[address] CATHY BRAR Facility:[facility] Start: 03-03-2022 End: 03-03-2022 ambulatory MD Fidel Abbott Work Phone: [facility] Work Phone: Start: 03-03-2022 End: 03-03-2022 Discharged Recurring MD Fidel Abbott Work Phone: [facility] Work Phone: Start: 02-26-2022 End: 02-27-[address] CATHY BRAR Facility:[facility] Start: 05-30-2021 End: 05-31-[address] FIDEL ABBOTT Facility:[facility] Start: 04-09-2017 End: 04-13-2017 Evaluation and management of inpatient MICHAELA [facility] Procedures Date Procedure Procedure Detail Performing Clinician Start: 02-10-2023 Antibody screen Cathy Brar Comment on above: Order Comment: Transfuse now? Y Number o f units to transfuse now? 1 Result Comment: PERF ORMED BY: [facility] [address] [place] [address] PATHOLOGIST [employer] FARRAH PAUL M.D. Start: 10-08-2022 Cystourethroscopy with dilation of urethral stricture Parvin ALLEN Start: 09-18-2022 Us retroperitoneal real time w/image complete Ashlee Erwin [employer] Work Phone: Start: 2022 Optical urethrotomy Parvin VILLA Start: 07-02-2022 Basic metabolic panel calcium total Shelly Mondragon [employer] Work Phone: Start: 06-26-2022 End: 06-26-2022 COLONOSCOPY POLYPECTOMY SNARE/COLD BIOPSY Katerina Atkins MD Work Phone: Start: 06-26-2022 End: 06-26-2022 Esophagoscopy intra/transmural needle aspirat/bx Katerina Atkins MD Work Phone: Start: 06-26-2022 End: 06-26-2022 Colonoscopy Katerina Atkins MD Work Phone: Start: 06-26-2022 Esophagogastroduodenoscopy Katerina Cuadra i, MD Work Phone: Start: 06-26-2022 GLUCOSE, WHOLE BLOOD Matias Doss MD Work Phone: Start: 06-26-2022 Blood count complete auto&auto difrntl wbc Katerina Atkins MD Work Phone: Start: 06-26-2022 Rhythm ecg 1-3 leads w/interpretation & report Unknown Provider Result Start: 06-25-2022 Blood occult peroxidase actv qual feces 1 deter Shelly Mondragon [employer] Work Phone: Start: 06-25-2022 Cul bact xcpt urine blood/stool aerobic isol Yakov Merritt Haleypatienceiker DPM Work Phone: Start: 06-25-2022 Blood count complete auto&auto difrntl wbc Katerina Atkins MD Work Phone: Start: 06-25-2022 End: 06-25-2022 Rhythm ecg 1-3 leads w/interpretation & report Unknown Provider Result Start: 06-25-2022 Antibody screen Eli Pimentel MD Work Phone: Start: 06-24-2022 Assay of troponin quantitative Zoila ANN-C Work Phone: Start: 06-24-2022 End: 06-24-2022 Transfusion of packed red blood cells Shelly Mondragon [employer] [facility] Work Phone: Start: 06-24-2022 Echo tthrc r-t 2d w/wom-mode compl spec&colr d Shelly Mondragon [employer] [facility] Work Phone: Start: 06-24-2022 Blood typing serologic abo Shelly Mondragon [employer] [facility] Work Phone: Start: 06-24-2022 GLUCOSE, WHOLE BLOOD Matias Doss MD Work Phone: Start: 06-24-2022 End: 06-24-2022 Prothrombin time Shelly Mondragon [employer] [facility] Work Phone: Start: 06-24-2022 VITAMIN B12 & FOLATE Shelly Mondragon [employer] Work Phone: Start: 06-24-2022 End: 06-25-2022 Rhythm ecg 1-3 leads w/interpretation & report Unknown Provider Result Start: 06-23-2022 End: 06-24-2022 Assay of troponin quantitative Zoila ANN-C Work Phone: Start: 06-23-2022 Rhythm ecg 1-3 leads w/interpretation & report Unknown Provider Result Start: 06-23-2022 End: 06-23-2022 Ecg routine ecg w/least 12 lds i&r only Zoila Villafuerte PA-C Work Phone: Start: 06-23-2022 GLUCOSE, WHOLE BLOOD Matias Doss MD Work Phone: Start: 06-23-2022 Radex ankle complete minimum 3 views Shelly Mondragon [employer] Work Phone: Start: 06-23-2022 Lipid panel Zoila Villafuerte PA-C Work Phone: Start: 06-23-2022 Urnls dip stick/tablet rgnt auto w/o microscopy Eli Pimentel MD Work Phone: Start: 06-23-2022 Cul bact xcpt urine blood/stool aerobic isol Matias Doss MD Work Phone: Start: 06-22-2022 Ecg routine ecg w/least 12 lds i&r only Eli Pimentel MD Work Phone: Start: 06-22-2022 Comprehensive metabolic panel Eli Segovia dd, MD Work Phone: Start: 06-22-2022 Ecg routine ecg w/least 12 lds w/i&r Angeles Nagy MD Work Phone: Start: 06-22-2022 Basic metabolic panel calcium total Angeles Nagy MD Work Phone: Start: 04-13-2017 POCT GLUCOSE MICHAELA ONTIVEROS Start: 04-13-2017 BASIC METABOLIC PANEL MICHAELA ONTIVEROS Start: 04-13-2017 CBC WITH AUTO DIFFERENTIAL MICHAELA ONTIVEROS Start: 04-13-2017 POC GLUCOSE FINGERSTICK MICHAELA ONTIVEROS Start: 04-13-2017 DISCHARGE PATIENT MICHAELA ONTIVEROS Start: 04-13-2017 POCT GLUCOSE MICHAELA ONTIVEROS Start: 04-13-2017 POC GLUCOSE FINGERSTICK MICHAELA ONTIVEROS Start: 04-13-2017 CATHETER REMOVAL MICHAELA ONTIVEROS Start: 04-13-2017 POCT GLUCOSE MICHAELA ONTIVEROS Start: 04-13-2017 HOME BIPAP OR CPAP MICHAELA ONTIVEROS Start: 04-13-2017 INITIATE OXYGEN THERAPY PROTOCOL MICHAELA WEBBER Start: 04-13-2017 POC GLUCOSE FINGERSTICK MICHAELA ONTIVEROS Start: 04-13-2017 BASIC METABOLIC PANEL MICHAELA ONTIVEROS Start: 04-13-2017 CBC WITH AUTO DIFFERENTIAL MICHAELA ONTIVEROS Start: 04-13-2017 POCT GLUCOSE MICHAELA ONTIVEROS Start: 04-13-2017 INTAKE AND OUTPUT MICHAELA ONTIVEROS Start: 04-12-2017 POC GLUCOSE FINGERSTICK MICHAELA ONTIVEROS Start: 04-12-2017 POCT GLUCOSE MICHAELA ONTIVEROS Start: 04-12-2017 POC GLUCOSE FINGERSTICK MICHAELA ONTIVEROS Start: 04-12-2017 POCT GLUCOSE MICHAELA ONTIVEROS Start: 04-12-2017 POC GLUCOSE FINGERSTICK MICHAELA ONTIVEROS Start: 04-12-2017 OT EVAL AND TREAT MICHAELA ONTIVEROS Start: 04-12-2017 PT EVAL AND TREAT MICHAELA ONTIVEROS Start: 04-12-2017 IP CONSULT TO IV TEAM MICHAELA ONTIVEROS Start: 04-12-2017 POCT GLUCOSE MICHAELA ONTIVEROS Start: 04-12-2017 HOME BIPAP OR CPAP MICHAELA ONTIVEROS Start: 04-12-2017 INITIATE OXYGEN THERAPY PROTOCOL MICHAELA WEBBER Start: 04-12-2017 BASIC METABOLIC PANEL MICHAELA ONTIVEROS Start: 04-12-2017 CBC WITH AUTO DIFFERENTIAL MICHAELA ONTIVEROS Start: 04-12-2017 POC GLUCOSE FINGERSTICK MICHAELA ONTIVEROS Start: 04-12-2017 POCT GLUCOSE MICHAELA ONTIVEROS Start: 04-12-2017 INTAKE AND OUTPUT MICHAELA ONTIVEROS Start: 04-11-2017 POC GLUCOSE FINGERSTICK MICHAELA ONTIVEROS Start: 04-11-2017 POCT GLUCOSE MICHAELA ONTIVEROS Start: 04-11-2017 POC GLUCOSE FINGERSTICK MICHAELA ONTIVEROS Start: 04-11-2017 POC GLUCOSE FINGERSTICK MICHAELA ONTIVEROS Start: 04-11-2017 POCT GLUCOSE MICHAELA ONTIVEROS Start: 04-11-2017 POC GLUCOSE FINGERSTICK MICHAELA ONTIVEROS Start: 04-11-2017 POCT GLUCOSE MICHAELA ONTIVEROS Start: 04-11-2017 HOME BIPAP OR CPAP MICHAELA ONTIVEROS Start: 04-11-2017 INITIATE OXYGEN THERAPY PROTOCOL MICHAELA Sol IM Start: 04-11-2017 BASIC METABOLIC PANEL MICHAELA ONTIVEROS Start: 04-11-2017 C-reactive protein MICHAELA ONTIVEROS Start: 04-11-2017 CBC WITH AUTO DIFFERENTIAL MICHAELA ONTIVEROS Start: 04-11-2017 POCT GLUCOSE MICHAELA ONTIVEROS Start: 04-11-2017 INTAKE AND OUTPUT MICHAELA ONTIVEROS Start: 04-10-2017 CATHETER REMOVAL MICHAELA ONTIVEROS Start: 04-10-2017 INSERT ROWE CATHETER MICHAELA ONTIVEROS Start: 04-10-2017 POCT GLUCOSE MICHAELA ONTIVEROS Start: 04-10-2017 POC GLUCOSE FINGERSTICK MICHAELA ONTIVEROS Start: 04-10-2017 POC GLUCOSE FINGERSTICK MICHAELA ONTIVEROS Start: 04-10-2017 MISCELLANEOUS NURSING CARE ORDER (SPECIFY) MICHAELA ONTIVEROS Start: 04-10-2017 POC GLUCOSE FINGERSTICK MICHAELA ONTIVEROS Start: 04-10-2017 TRANSFER PATIENT MICHAELA ONTIVEROS Start: 04-10-2017 ANAEROBIC AND AEROBIC CULTURE MICHAELA ONTIVEROS Start: 04-10-2017 EKG 12-LEAD MICHAELA ONTIVEROS Start: 04-10-2017 POCT GLUCOSE MICHAELA ONTIVEROS Start: 04-10-2017 POC GLUCOSE FINGERSTICK MICHAELA ONTIVEROS Start: 04-10-2017 VL ARTERIAL PVR LOWER WO EXERCISE MICHAELA ONTIVEROS Start: 04-10-2017 POC GLUCOSE FINGERSTICK MICHAELA ONTIVEROS Start: 04-10-2017 IP CONSULT TO VASCULAR SURGERY MICHAELA ONTIVEROS Start: 04-10-2017 POCT GLUCOSE MICHAELA ONTIVEROS Start: 04-10-2017 HOME BIPAP OR CPAP MICHAELA ONTIVEROS Start: 04-10-2017 INITIATE OXYGEN THERAPY PROTOCOL MICHAELA WEBBER Start: 04-10-2017 POCT GLUCOSE MICHAELA ONTIVEROS Start: 04-10-2017 INTAKE AND OUTPUT MICHAELA ONTIVEROS Start: 04-09-2017 POC GLUCOSE FINGERSTICK MICHAELA ONTIVEROS Start: 04-09-2017 Radex ankle complete minimum 3 views MICHAELA ONTIVEROS Start: 04-09-2017 LOWER LEG/FOOT BOOT MICHAELA ONTIVEROS Start: 04-09-2017 Radex foot complete minimum 3 views MICHAELA ONTIVEROS Start: 04-09-2017 POCT GLUCOSE MICHAELA ONTIVEROS Start: 04-09-2017 Mri lower extrem oth/thn jt w/o & w/contr matr MICHAELA ONTIVEROS Start: 04-09-2017 INFLUENZA A + B, PCR MICHAELA ONTIVEROS Start: 04-09-2017 RAPID INFLUENZA A/B ANTIGENS MICHAELA ONTIVEROS Start: 04-09-2017 RSV RAPID ANTIGEN MICHAELA ONTIVEROS Start: 04-09-2017 DIET CARB CONTROL MICHAELA ONTIVEROS Start: 04-09-2017 DIETARY NUTRITION SUPPLEMENTS MICHAELA ONTIVEROS Start: 04-09-2017 MISCELLANEOUS NURSING CARE ORDER (SPECIFY) MICHAELA ONTIVEROS Start: 04-09-2017 MONITOR WOUND DRAINAGE MICHAELA ONTIVEROS Start: 04-09-2017 IP CONSULT TO PODIATRY MICHAELA ONTIVEROS Start: 04-09-2017 POCT GLUCOSE MICHAELA ONTIVEROS Start: 04-09-2017 POC GLUCOSE FINGERSTICK MICHAELA ONTIVEROS Start: 04-09-2017 C-reactive protein MICHAELA ONTIVEROS Start: 04-09-2017 CBC WITH AUTO DIFFERENTIAL MICHAELA ONTIVEROS Start: 04-09-2017 COMPREHENSIVE METABOLIC PANEL W/ REFLEX TO MG FOR LOW K MICHAELA ONTIVEROS Start: 04-09-2017 HEMOGLOBIN A1C MICHAELA ONTIVEROS Start: 04-09-2017 SEDIMENTATION RATE MICHAELA ONTIVEROS Start: 04-09-2017 WOUND OSTOMY EVAL AND TREAT MICHAELA ONTIVEROS Start: 04-09-2017 CULTURE, URINE CATHETER MICHAELA ONTIVEROS Start: 04-09-2017 POCT GLUCOSE MICHAELA ONTIVEROS Start: 04-09-2017 HOME BIPAP OR CPAP MICHAELA ONTIVEROS Start: 04-09-2017 INITIATE OXYGEN THERAPY PROTOCOL MICHAELA WEBBER Start: 04-09-2017 POC GLUCOSE FINGERSTICK MICHAELA ONTIVEROS Start: 04-09-2017 POCT GLUCOSE MICHAELA ONTIVEROS Start: 04-09-2017 ELEVATE HEELS OFF OF BED MICHAELA ONTIVEROS Start: 04-09-2017 HEAD OF BED 60 DEGREES OR LESS MICHAELA ONTIVEROS Start: 04-09-2017 NURSING COMMUNICATION MICHAELA ONTIVEROS Start: 04-09-2017 TURN PATIENT MICHAELA ONTIVEROS Start: 04-09-2017 CATHETER REMOVAL MICHAELA ONTIVEROS Start: 04-09-2017 HOME BIPAP OR CPAP MICHAELA ONTIVEROS Start: 04-09-2017 INSERT ROWE CATHETER MICHAELA ONTIVEROS Start: 04-09-2017 POC GLUCOSE FINGERSTICK MICHAELA ONTIVEROS Start: 04-09-2017 DAILY WEIGHTS MICHAELA ONTIVEROS Start: 04-09-2017 GRAM STAIN MICHAELA ONTIVEROS Start: 04-09-2017 INTAKE AND OUTPUT MICHAELA ONTIVEROS Start: 04-09-2017 IP CONSULT TO INFECTIOUS DISEASES MICHAELA ONTIVEROS Start: 04-09-2017 WOUND CULTURE MICHAELA ONTIVEROS Start: 04-09-2017 CONTACT ISOLATION MICHAELA ONTIVEROS Start: 04-09-2017 ELEVATE EXTREMITY MICHAELA ONTIVEROS Start: 04-09-2017 FULL CODE MICHAELA ONTIVEROS Start: 04-09-2017 INITIATE OXYGEN THERAPY PROTOCOL MICHAELA WEBBER Start: 04-09-2017 NOTIFY PHYSICIAN (SPECIFY) MICHAELA ONTIVEROS Start: 04-09-2017 REASON FOR NO MECHANICAL VTE PROPHYLAXIS MICHAELA ONTIVEROS Start: 04-09-2017 VITAL SIGNS MICHAELA ONTIVEROS Start: 04-08-2017 PATIENT STATUS (DIRECT) MICHAELA ONTIVEROS Appendix structure ( body structure) Parvin VILLA Back structure, excl uding neck (body structure) Parvin VILLA Cystoscopy Parvin VILLA Insertion of inferio r vena caval filter Parvin VILLA Urodynamic studies Parvin Merritt [place] Plan of Treatment Date Care Activity Detail Author Start: 06-26-2032 Screening for malignant neoplasm of colon [facility] Start: 10-18-2023 End: 10-18-2023 Patient encounter procedure 10/18/2023 10:00 AM EDT Office Visit [facility] [address] [place] [id number] Fidel Abbott MD [address] [place] [id number] [facility] Start: 09-19-2023 GFR test (Diabetes, CKD 3-4, OR last GFR 15-59) GFR test (Diabetes, CKD 3-4, OR last GFR 15-59) [facility] Start: 07-08-2023 Hemoglobin A1c measurement A1C test (Diabetic or Prediabetic) [facility] Start: 07-03-2023 GFR test (Diabetes, CKD 3-4, OR last GFR 15-59) GFR test (Diabetes, CKD 3-4, OR last GFR 15-59) [facility] Start: 06-27-2023 Screening for malignant neoplasm of colon [facility] Start: 06-26-2023 GFR test (Diabetes, CKD 3-4, OR last GFR 15-59) GFR test (Diabetes, CKD 3-4, OR last GFR 15-59) [facility] Start: 06-26-2023 Screening for malignant neoplasm of colon [facility] Start: 06-24-2023 Lipid panel Lipids [facility] Start: 06-23-2023 GFR test (Diabetes, CKD 3-4, OR last GFR 15-59) GFR test (Diabetes, CKD 3-4, OR last GFR 15-59) [facility] Start: 05-20-2023 End: 05-20-2023 Patient encounter procedure 05/20/2023 3:10 PM EST Office Visit [facility] [address] [id number] Jonathan Moffett, DPM [address] [address] [facility] Start: 05-06-2023 End: 05-06-2023 Patient encounter procedure 05/06/2023 10:20 AM EST Office Visit [facility] [address] [facility] [address] [place] [phone] Jonathan Moffett, DPM [address] [address] [facility] Start: 10-27-2022 Influenza vaccination Flu vaccine (Season Ended) [facility] Start: 10-06-2022 Hemoglobin A1c measurement Diabetes: Hemoglobin A1C [facility] Start: 09-25-2022 End: 09-25-2022 Patient encounter procedure 09/25/2022 Office Visit [facility]OLOGY [facility] Start: 07-08-2022 End: 07-08-2022 Patient encounter procedure 07/08/2022 [facility]: [facility]22 End: 2022 Admission to same day surgery center 2022 Surgery IP Unit Angeles Nagy MD [address], [address] [place] [address] CYSTOSCOPY TRANSURETHROTOMY- DVIU WITH POSS TRANSURETHRAL RESECTION OF BLADDER TUMOR [facility] Comment on above: CYSTOSCOPY TRANSURETHROTOMY- DVIU WITH P OSS TRANSURETHRAL RESECTION OF BLADDER TUMOR Start: 2022 End: 2022 Cystourethroscopy w/internal urethrotomy male CYSTOSCOPY TRANSURETHROTOMY Cauda equina syndrome (HCC) 2022 8:30 AM EDT [facility] Start: 2022 Subsequent hospital visit by physician 2022 Hospital Encounter IP Unit Angeles Nagy MD [address], [address] [place] [address] [facility] Start: 07-01-2022 End: 06-27-2023 Basic metabolic 2000 panel - Serum or Plasma Basic Metabolic Panel Lab Routine Acute kidney injury (HCC) Expected: 07/01/2022, Expires: 06/27/2023 [facility] Work Phone: Comment on above: Expected: 07/01/2022, Expires: 4 Start: 07-01-2022 End: 06-27-2023 CBC W Auto Differential panel - Blood CBC with Auto Differential Lab Routine Acute kidney injury (HCC) Iron deficiency anemia, unspecified iron deficiency anemia type Expected: 07/01/2022, Expires: 06/27/2023 [facility] Work Phone: Comment on above: Expected: 07/01/2022, Expires: 4 Start: 06-22-2022 Annual Wellness Visit (AWV) Annual Wellness Visit (AWV) [facility] Start: 10-27-2021 Influenza vaccination Flu vaccine (#1) [facility] [employer] Start: 04-09-2018 Diabetic foot examination Diabetic foot exam [facility] [employer] Start: 04-09-2018 Hemoglobin A1c measurement A1C test (Diabetic or Prediabetic) [facility] Start: 04-25-2016 Lipid panel Lipids [facility] [employer] Start: 04-24-2016 Urine screening for protein Diabetic Alb to Cr ratio (uACR) test [facility] [employer] Start: 07-08-2011 Shingles vaccine (1 of 2) Shingles vaccine (1 of 2) [facility] [employer] Start: 2006 Screening for malignant neoplasm of colon [facility] Start: 1980 DTaP/Tdap/Td vaccine (1 - Tdap) DTaP/Tdap/Td vaccine (1 - Tdap) [facility] [employer] Start: 1980 Urine screening for protein Diabetes: Urine Protein Screening [facility] Start: 07-08-1979 Glaucoma screening Diabetic retinal exam [facility] Start: 07-08-1979 Hepatitis C screening Hepatitis C screen [facility] [employer] Start: 1976 HIV screening HIV screen [facility] [employer] Start: 1973 Depression Monitoring Depression Monitoring [facility] [employer] Start: 07-08-1971 Glaucoma screening Diabetes: Retinopathy Screening [facility] Start: 07-08-1967 Pneumococcal 0-64 years Vaccine (1 - PCV) Pneumococcal 0-64 years Vaccine (1 - PCV) [facility] [employer] Start: 01-06-1962 COVID-19 Vaccine (#1) COVID-19 Vaccine (#1) [facility] [employer] Start: 1961 Screening for malignant neoplasm of colon [facility] End: 06-27-2022 CBC W Auto Differential panel - Blood CBC auto differential Lab Routine Daily for 5 Days starting 06/23/2022 until 06/27/2022, 4 completed [employer] Phone: Comment on above: Daily for 5 Days starting 06/23/2022 unt il 06/27/2022, 4 completed Culture, Wound Aerob ic Only Culture, Wound Aerobic Only Microbiology [employer] Label Print 06/25/2022 12:20 PM EDT [employer] Phone: End: 06-25-2022 Hemoglobin and Hematocrit Hemoglobin and Hematocrit Lab Routine Post Transfusion Post Transfusion Post Transfustion until discontinued starting 06/24/2022, 1 completed [employer] Phone: Comment on above: Post Transfusion Post Transfusion Post T ransfustion until discontinued starting 06/24/2022, 1 completed Oxygen therapy [[facility] Data Set] Initiate Oxygen Therapy Protocol Respiratory Care Routine Daily until discontinued starting 06/22/2022 [employer] Phone: Comment on above: Daily until discontinued starting 2022 End: 06-24-2022 PREPARE RBC (CROSSMATCH), 1 Units PREPARE RBC (CROSSMATCH), 1 Units Blood Bank Routine Once for 1 Occurrences starting 06/24/2022 until 06/24/2022 [employer] Phone: Comment on above: Once for 1 Occurrences starting 06/25/19 until 06/24/2022 End: 06-25-2022 Surgical Pathology Surgical Pathology Lab Routine One Time for 1 Occurrences starting 06/25/2022 until 06/25/2022 [employer] Phone: Comment on above: One Time for 1 Occurrences starting 05/29 until 06/25/2022 Surgical Pathology Surgical Path ology Lab Routine Hyperkalemia Release Upon Ordering for 1 Occurrences starting 06/26/2022 [employer] Phone: Comment on above: Release Upon Ordering for 1 Occurrences starting 06/26/2022 End: 06-25-2022 SURGICAL PATHOLOGY REPORT SURGICAL PATHOLOGY REPORT Lab Routine Once for 1 Occurrences starting 06/25/2022 until 06/25/2022 [employer] Phone: Comment on above: Once for 1 Occurrences starting 06/26/19 until 06/25/2022 End: 06-26-2022 SURGICAL PATHOLOGY REPORT SURGICAL PATHOLOGY REPORT Lab Routine Once for 1 Occurrences starting 06/26/2022 until 06/26/2022 [employer] Phone: Comment on above: Once for 1 Occurrences starting 06/27/19 until 06/26/2022 Immunizations Immunization Date Immunization Notes Care Provider Fa [facility] 04-10-2017 influenza virus vaccine, unspecified formulation Parvin ALLEN [facility] Comment on above: Result Comment: 2022: VIS DATE: 11/02/2014 04-10-2017 influenza, injectabl e, quadrivalent, preservative free Fidel Abbott MD Work Phone: [employer] 01-28-2016 Influenza Vaccine, unspecified formulation Fidel Abbott MD Work Phone: [facility] 01-01-2015 influenza virus vaccine, unspecified formulation Parvin VILLA [facility] 01-10-2014 influenza virus vaccine, unspecified formulation Parvin VILLA [facility] Payers Date Payer Category Payer Self-pay [id number] 2021 Unknown BCBS BCBS [id number] 2021-Present [phone] [address] [place] [address] [id number] 2015 Unknown [id number] 2006 Medicare MEDICARE MEDICAR E PART B [id number] 2006-Present [address] [address] [place] [address] Medicare [id number] 1961 Unknown [id number] 2.16.840.1.081074.3.579.2.593 1961 Unknown [id number] 2.16.840.1.259514.3.579.2.593 1961 Unknown [id number] 2.16.840.1.159849.3.579.2.593 1961 Unknown [id number] 2.16.840.1.619566.3.579.2.173 1961 Unknown [id number] 2.16.840.1.715106.3.579.2.173 1961 Unknown [id number] 2.16.840.1.415254.3.579.2.173 1961 Unknown [id number] 2.16.840.1.567551.3.579.2.173 1961 Unknown [id number] 2.16.840.1.977915.3.579.2.173 1961 Unknown [id number] 2.16.840.1.957329.3.579.2.173 1961 Unknown [id number] 2.16.840.1.838397.3.579.2.173 1961 Unknown [id number] 2.16.840.1.828671.3.579.2.173 1961 Unknown [id number] 2.16.840.1.881658.3.579.2.727 1961 Unknown [id number] 2.16.840.1.669614.3.579.2.727 1961 Unknown [id number] 2.16.840.1.359336.3.579.2.72 1961 Unknown [id number] 2.16.840.1.432899.3.579.2.727 1961 Unknown [id number] 2.16.840.1.712533.3.579.2.1258 1961 Unknown [id number] 2.16.840.1.822884.3.579.2.9 1961 Unknown [id number] 2.16.840.1.009365.3.579.2.1258 1961 Unknown [id number] 2.16.840.1.675599.3.579.2.125 1961 Unknown [id number] 2.16.840.1.901657.3.579.2.1258 1961 Unknown [id number] 2.16.840.1.159180.3.579.2.1259 1961 Unknown [id number] 2.16.840.1.812301.3.579.2.125 1961 Unknown [id number] 2.16.840.1.377420.3.579.2.1259 1961 Unknown [id number] 2.16.840.1.465271.3.579.2.1259 1958 Medicare [id number] 1959 Unknown [id number] 1959 Unknown [id number] Unknown [id number] 2.16.840.1.936627.3.579.2.531 Unknown [id number] 2.16.840.1.297365.3.579.2.531 Unknown [id number] 2.16.840.1.622930.3.579.2.531 Unknown [id number] 2.16.840.1.077619.3.579.2.531 Social History Date Type Detail Facility Start: 01-27-2022 End: 02-23-2023 Tobacco smoking status NHIS Never smoked tobacco (finding) [facility] Start: 1960 Sex Assigned At Male [facility] Start: 06-22-2022 End: 02-23-2023 Tobacco use and exposure Smokeless tobacco non-user [employer] Phone: Start: 06-22-2022 End: 07-14-2022 Alcohol intake Current non-drinker of alcohol (finding) [employer] Phone: Start: 1960 Sex Assigned At Not on file B ON [employer] Phone: Start: 06-12-2022 End: 06-22-2022 Exposure to SARS-CoV-2 (event) Not sure [employer] Start: 06-23-2022 History SDOH Alcohol Frequency 1 [employer] Phone: Start: 06-23-2022 History SDOH Alcohol Std Drinks 0 [employer] Phone: Tobacco smoking status Never [facility] Start: 04-29-2023 End: 05-06-2023 Sex Assigned At Male [facility] Start: 04-29-2023 End: 05-06-2023 Alcohol intake Lifetime non-drinker (finding) [facility] Start: 04-29-2023 End: 05-06-2023 History of Social function [facility] Medical Equipment Procedure Code Equipment Code Equipment Origin al Text Equipment Identifier Dates Graft Subst Resorbable Mini 5cc [id number] Start: 12-25-2016 Comment on above: Description: mercedez icin recostituted with 10ml normal saline ref # [id number] exp 07/27/2018 lot # [id number] Goals Date Patient Goal Desired Activity /State Functional Status Date Assessment Result Facility 11-09-2022 Functional Status N/A [facility] Clinical Notes 07-29-2021 to 05-13-2023 Telephone Encounter - Sandhya Velasquez RN - 05/13/2023 3:00 PM ESTTelephone Encounter - Sandhya Velasquez RN - 05/13/2023 3:00 PM Katt Moffett DPM - 05/06/2023 10:20 AM ESTDischarge Instructions Note Date & Type Note Facility 05-13-2023 Telephone encounter Note Patient called to inquire about the antibiotic that was supposed to be sent after his 05/06 visit. Can you resend? Thank you! [facility] 05-13-2023 Miscellaneous Notes Patient called to inquire about the antibiotic that was supposed to be sent after his 05/06 visit. Can you resend? Thank you! documented in this encounter [facility] 05-06-2023 History of Presen t illness Narrative Patient: Ganga Stinson : 1960 PCP: Fidel Abbott MD SUBJECTIVE This is a 62 y.o. male that presents today 12wks s/p left 4th and 5th ray amputation with single lobe flap closure with Integra wound graft to plantar left ulcerative site. Pt denies n/f/v/c and has negative pain to postop site. 's been changing dressing daily. Patient discharged early from hospital and was unable to make earlier appointment. Pt states that they have been keeping dressing dry and intact and have been nonweightbearing to post op foot. Patient has finished oral antibiotics with history of paraplegia secondary to cauda equina syndrome Pt presents today for follow up. Patient has lateral left foot area of ulceration and patient can not recall how often his has been changing the dressing. Patient unable to go to wound care at [facility] Patient also has Integra wound graft to the plantar left foot and area of deficit of skin for closure purposes during surgery and single lobe flap closure. Patient presents today for follow-up and will discuss further wound VAC treatment as patient was wanting to perform however did discuss in past the complexity of applying this and his situation and may benefit from wound care clinic or home health. Patient currently going at [facility] for decubitus ulcer Patient still awaits MRI approval as had to be resubmitted due to need for new x-ray on previous visit in awaits MRI at [facility] . Referral has been sent to [facility] wound center with attempt to follow-up for complex wound treatment for patient. Patient was reached for call and states that he is unable to make appointment due to transportation issues. He presents today as well as concerns to lateral left ankle ulcer that has been packed by every other day Awaits MRI and presents today as well with questions to the right foot as he said wound care did take a look at it while looking at sacral ulcer and said that he does have issues to the lateral aspect of his right ankle as well as to the left heel region Allergies: Allergies Allergen Reactions Omadacycline Other Reaction(s): Kidney pain Vancomycin Other and Unknown NEPHROTOXICITY States had kidney issues after taking Past Medical History: Past Medical History: Diagnosis Date Cauda equina compression (CMS/HCC) paralysis Diabetes (CMS/HCC) Paralysis (CMS/HCC) Sleep apnea Medications: Current Outpatient Medications: amLODIPine (Norvasc) 10 MG tablet, Take 1 tablet by mouth once daily, Disp: 30 tablet, Rfl: 5 atenolol (Tenormin) 100 MG tablet, Take 1 tablet by mouth in the morning., Disp: , Rfl: atorvastatin (Lipitor) 40 MG tablet, Take 1 tablet (40 mg) by mouth in the morning., Disp: 30 tablet, Rfl: 5 citalopram (CeleXA) 40 MG tablet, Take 40 mg by mouth in the morning., Disp: , Rfl: glipiZIDE (Glucotrol) 10 MG tablet, Refills(s) 0, Disp: , Rfl: lisinopril 20 MG tablet, Take 20 mg by mouth in the morning., Disp: , Rfl: oxybutynin XL (Ditropan-XL) 15 MG 24 hr tablet, Take 15 mg by mouth in the morning., Disp: , Rfl: ROS: General: denies fever, chills, fatigue, malaise OBJECTIVE LE EXAM: Derm: lateral left foot ulcer and flap region is improved with area of a 1.8 cm x 2.0 cm x 0.2 cm subcutaneous thickness depth ulceration with fibrous slough present and slight serous drainage Plantar left foot has ulceration to subcutaneous tissue that measures 3.5 cm x 3 cm with 0.2 cm depth that is dry with slight fibrous slough and negative erythema Posterior plantar left calcaneal region has area of bleeding with some necrosis to the area with negative erythema negative drainage. Lateral left malleolar ankle region has area of 2.0 cm by 1.5 cm by 1.0 cm positive probe to periosteal tissue of the left ankle and possible bone with negative erythema. Erythema noted to the left anterior miller region extending to the dorsum of foot with +2 pitting edema to bilateral ankles +1 pitting edema to bilateral feet and ankles Medial aspect of the right plantar calcaneal region has area of 2.4 cm x 0.8 cm x 0.2 cm subcutaneous thickness depth with fibrotic slough and negative probe to bone or erythema with notable lateral malleolar region ulceration of 2 cm x 1.5 cm 0.2 cm subcutaneous depth thickness with positive fibrous slough slight serous drainage and negative erythema or probe to bone Vascular: Non Palpable pedal pulses to left foot Neuro: Gross sensation absent to left foot Musculoskeletal: Negative pain on palpation to left calf secondary to paraplegia MRI: MRI to be ordered for lateral left ankle region for possible osteomyelitis to fibula at [facility] ASSESSMENT 12 weeks s/p left 4th and 5th ray amputation with incision and drainage and partial closure with single lobe flap Type 2 diabetic with paraplegia 1. Ulcer of left ankle, with necrosis of bone (HCC) (CMS/HCC) 2. Diabetes mellitus due to underlying condition with diabetic polyneuropathy, unspecified whether intermediate insulin use (CMS/HCC) 3. Acute complete paraplegia (CMS/HCC) 4. Acute osteomyelitis of left fibula (CMS/HCC) 5. Foot ulcer, right, with fat layer exposed (CMS/HCC) 6. Venous insufficiency PLAN Sharp debridement with 15 blade of left foot ulceration to left fibular bone depth to ulceration to left lateral anklewith active bleeding noted and removal and excision of fibrotic and necrotic tissue to wound and DSD applied .. Today's procedure is a staged procedure and patient may need further procedures in the future. Pt to have continue with packing as she still has packing available and will pack the wound every other day. Patient awaits MRI clearance and pre-certify by hospital Patient placed on oral antibiotics Patient to follow up with [facility] for decubitus ulcer and instructions given to contact [facility] for follow-up.. Skin flap area of ulceration site appears to be healing and may not need wound VAC at this time however may need a staged procedure further wound grafts in the near future. Patient also is to have possible split-thickness skin grafting in future and this will be depend on treatment necessary for the left fibular ulcerative region as well Sharp debridement with 15 blade of subcutaneous ulceration to left plantar foot with active bleeding noted and removal and excision of fibrotic and necrotic tissue to wound and DSD applied with neosporin. Pt to continue with malka daily. Similar procedure performed similar fashion to ulcerations to the right heel and lateral right malleolar region Application today of multilayer compressive dressing for swelling and edema to the foot and ankle region. Dressing consisting of Webril and Olga wrap today. Today's procedure is a staged procedure and patient may need further procedures in the future. This was performed right and left legs Patient awaits MRI Jonathan Moffett DPM documented in this encounter [facility] 11-09-2022 Hospital Discharg e instructions Patient Education 11/09/2022 14:08:53 Acute Urinary Retention, Male Acute Urinary Retention, Male Acute urinary retention is a condition in which a person is unable to pass urine or can only pass a little urine. This condition can happen suddenly and last for a short time. If left untreated, it can become long-term (chronic) and result in kidney damage or other serious complications. What are the causes? This condition may be caused by: Obstruction or narrowing of the tube that drains the bladder (urethra). This may be caused by surgery, problems with nearby organs, or injury to the bladder or urethra. Problems with the nerves in the bladder. Tumors in the area of the pelvis, bladder, or urethra. Certain medicines. Bladder or urinary tract infection. Constipation. What increases the risk? This condition is more likely to develop in older men. As men age, their prostate may become larger and may start to press or squeeze on the bladder or the urethra. Other chronic health conditions can increase the risk of acute urinary retention. These include: Diseases such as multiple sclerosis. Spinal cord injuries. Diabetes. Degenerative cognitive conditions, such as delirium or dementia. Psychological conditions. A man may hold his urine due to trauma or because he does not want to use the bathroom. What are the signs or symptoms? Symptoms of this condition include: Trouble urinating. Pain in the lower abdomen. How is this diagnosed? This condition is diagnosed based on a physical exam and your medical history. You may also have other tests, including: An ultrasound of the bladder or kidneys or both. Blood tests. A urine analysis. Additional tests may be needed, such as a CT scan, MRI, and kidney or bladder function tests. How is this treated? Treatment for this condition may include: Medicines. Placing a thin, sterile tube (catheter) into the bladder to drain urine out of the body. This is called an indwelling urinary catheter. After it is inserted, the catheter is held in place with a small balloon that is filled with sterile water. Urine drains from the catheter into a collection bag outside of the body. Behavioral therapy. Treatment for other conditions. If needed, you may be treated in the hospital for kidney function problems or to manage other complications. Follow these instructions at home: Medicines Take [id number] and prescription medicines only as told by your health care provider. Avoid certain medicines, such as decongestants, antihistamines, and some prescription medicines. Do not take any medicine unless your health care provider approves. If you were prescribed an antibiotic medicine, take it as told by your health care provider. Do not stop using the antibiotic even if you start to feel better. General instructions Do not use any products that contain nicotine or tobacco. These products include cigarettes, chewing tobacco, and vaping devices, such as e-cigarettes. If you need help quitting, ask your health care provider. Drink enough fluid to keep your urine pale yellow. If you have an indwelling urinary catheter, follow the instructions from your health care provider. Monitor any changes in your symptoms. Tell your health care provider about any changes. If instructed, monitor your blood pressure at home. Report changes as told by your health care provider. Keep all follow-up visits. This is important. Contact a health care provider if: You have uncomfortable bladder contractions that you cannot control (spasms). You leak urine with the spasms. Get help right away if: You have chills or a fever. You have blood in your urine. You have a catheter and the following happens: ?Your catheter stops draining urine. ?Your catheter falls out. Summary Acute urinary retention is a condition in which a person is unable to pass urine or can only pass a little urine. If left untreated, this condition can result in kidney damage or other serious complications. An enlarged prostate may cause this condition. As men age, their prostate gland may become larger and may press or squeeze on the bladder or the urethra. Treatment for this condition may include medicines and placement of an indwelling urinary catheter. Monitor any changes in your symptoms. Tell your health care provider about any changes. This information is not intended to replace advice given to you by your health care provider. Make sure you discuss any questions you have with your health care provider. Document Revised: 12/04/2020 Document Reviewed: 12/04/2020 [employer] ([employer]) Patient Education 2022 [employer]. Follow Up Care 10/13/2022 11:18:02 With:ALLEN NAZARIO, Parvin Christie, URL Address: [facility] [address] , [place] [address]- [phone] When: Unknown Comments:sched cysto [facility] Titi 06-26-2022 History of Presen t illness Narrative Nurse went over discharge instructions with pt and pts . When nurse was explaining dressing changes, pts stated kenyon been doing this for ten years, I know how to do it . All questions and concerns gone over with pt and pts family. Pt instructed on what to look for for infection. Pt denied any further needs at this time. Pt placed into wheelchair and stated he would call out when ready to go. Call light within reach. Physical Therapy Facility/Department: [facility] Daily Treatment Note NAME: Ganga Stinson : 1960 Date of Service: 06/26/2022 Discharge Recommendations: Continue to assess pending progress, Patient would benefit from continued therapy after discharge, Home with Home health PT Patient Diagnosis(es): The primary encounter diagnosis was Acute kidney injury (HCC). A diagnosis of Hyperkalemia was also pertinent to this visit. Assessment Assessment: Patient reports 1/10 soreness from testing this morning but no c/o pain. Supine BLE PROM therex in all planes 2x15 ea. ABRAHAM completed upper extremity therex while patient took break from LE therex. Activity Tolerance: Patient tolerated treatment well Plan Physcial Therapy Plan General Plan: 2 times a day 7 days a week (1x/day on weekends) Restrictions Restrictions/Precautions Restrictions/Precautions: General Precautions, Fall Risk, Contact Precautions Position Activity Restriction Other position/activity restrictions: Pt is paraplegic and has no functional movement in oj LEs to assist with transfers. Subjective Subjective Subjective: Pt in bed upon arrival, agreed to therapy. Pain: no c/o pain just 1/10 soreness from testing done this morning Objective Vitals Bed Mobility Training Bed Mobility Training: No Transfer Training Transfer Training: No PT Exercises Exercise Treatment: Supine BLE PROM therex in all planes 2x15 ea. Safety Devices Type of Devices: All fall risk precautions in place;Bed alarm in place;Call light within reach;Left in bed;Heels elevated for pressure relief Goals Short Term Goals Time Frame for Short Term Goals: 20 days Short Term Goal 1: Initiate HEP and progress as tolerated for strength, core, and transfers. Short Term Goal 2: Bed mobility will be independent without rails and an appropriate wound relief schedule. Short Term Goal 3: Pt will be able to sit edge of bed and be able to sit unsupported for up to 5 minutes, in order to dress and change position. Short Term Goal 4: Pt will transfer safe and independently from chair to bed for pressure relief and change in position for wound care. Short Term Goal 5: Pt will be able to perform 2 x 10 reps of w/c push-ups and verbalize wound relief. Patient Goals Patient Goals : return home and he is willing in further strengthening and core Education Therapy Time Individual Concurrent Group Co-treatment Time In 1133 Time Out 1157 Minutes 24 Madelin Hopkins PTA Occupational Therapy Facility/Department: [facility] Daily Treatment Note NAME: Ganga Stinson : 1960 Date of Service: 06/26/2022 Discharge Recommendations: Continue to assess pending progress Patient Diagnosis(es): The primary encounter diagnosis was Acute kidney injury (HCC). A diagnosis of Hyperkalemia was also pertinent to this visit. Assessment Activity Tolerance: Patient tolerated treatment well Discharge Recommendations: Continue to assess pending progress Plan Occupational Therapy Plan Times Per Week: 7x/wk Times Per Day: Once a day Current Treatment Recommendations: Strengthening;Safety education & training;Self-Care / ADL Restrictions Restrictions/Precautions Restrictions/Precautions: General Precautions;Fall Risk;Contact Precautions Position Activity Restriction Other position/activity restrictions: Pt is paraplegic and has no functional movement in oj LEs to assist with transfers. Subjective Subjective Subjective: pt in bed, just finished lunch and agreeable to therapy session. Pain: pt stated just sore from earlier procedure and rated 1/10 Pain: no c/o pain just 1/10 soreness from testing done this morning Objective Vitals OT Exercises Exercise Treatment: BUE ther ex completed to increase strength and endurance for fxl task completion. x2 sets of BUE ther ex, 1 with no weight and one with 2# weight in x6 planes- shoulder, elbow, wrist x15 reps and red digi flex x20 repes x1 set while in bed with head raised, RBs as needed Safety Devices Type of Devices: All fall risk precautions in place;Bed alarm in place;Call light within reach;Left in bed;Heels elevated for pressure relief Patient Education Education Given To: Patient Education Method: Demonstration;Verbal Barriers to Learning: None Education Outcome: Verbalized understanding;Demonstrated understanding Goals Short Term Goals Time Frame for Short Term Goals: 20 visits Short Term Goal 1: Patient will tolerate 15 mins of BUE ther ex to increase strength for functional transfers. Short Term Goal 2: Pt. will complete transfer to bedside commode with SBA and G safety to increase (I) with toileting tasks. Short Term Goal 3: Pt. will complete all grooming and UB ADL's with (I) after setup for safe return home. Short Term Goal 4: Pt. will complete toileting and LB ADL's with SBA to increase (I) with ADL routine. Therapy Time Individual [employer] [employer] Co-treatment Time In 1133 Time Out 1158 Minutes 25 Gabrielle BERMUDEZ 06/26/22 Pt denied wanting to put his SCDs on even after being educated on why they were important especially after surgery. Pt stated he is aware. Will continue to monitor. Vitals and assessment done at this time. See flow sheet for more details. Pt resting in bed at this time. Pt denied any tenderness in his abdomen. Pt denied any shortness of breath, dizziness or light headedness. Pt denied any needs at this time. Call light within reach. Will continue to monitor. Pt brought back to room 334 at this time. Report received at bedside from soco. Call light within reach will continue to monitor. [facility] via cart with RN. Bedside report given to RENETTA Archibald. Discharge Criteria Inpatients must meet Criteria 1 through 7. All other patients are either YES or N/A. If a NO is chosen then Anesthesia or Surgeon must be notified. 1. Minimum 30 minutes after last dose of sedative medication, minimum 120 minutes after last dose of reversal agent. Yes 2. Systolic BP stable within 20 mmHg for 30 minutes & systolic BP between 90 & 180 or within 10 mmHg of baseline. Yes 3. Pulse between 60 and 100 or within 10 bpm of baseline. Yes 4. Spontaneous respiratory rate >/= 10 per minute. Yes 5. SaO2 >/= 95 or >/= baseline. Yes 6. Able to cough and swallow or return to baseline function. Yes 7. Alert and oriented or return to baseline mental status. Yes 8. Demonstrates controlled, coordinated movements, ambulates with steady gait, or return to baseline activity function. N/A 9. Minimal or no pain or nausea, or at a level tolerable and acceptable to patient. N/A 10. Takes and retains oral fluids as allowed. N/A 11. Procedural / perioperative site stable. Minimal or no bleeding. N/A 12. If GI endoscopy procedure, minimal or no abdominal distention or passing flatus. N/A 13. Written discharge instructions and emergency telephone number provided. N/A 14. Accompanied by a responsible adult. N/A Pt taken down to surgery at this tie via cart. Pt incontinent of bowels- wound dressings changed per order. See flow sheet Shared Services Manager at bedside for wound dressing change- pt incontinent of bowels. See flow sheet for details. Pt incontinent of stool. Shared Services Manager at bedside for wound change dressing per order- see flow sheet for details. Patient at bedside for reassessment and vitals- see flow sheet for details. Pt remains alert and oriented c4-calm and cooperative. GoLYTELY at bedside and junior copywriter encourages patient to consume fluid- pt validates understanding. Patient currently denying pain and discomfort. Denying any additional needs, call light placed within reach, bed in lowest position. Shared Services Manager encourages patient to call out for assistance. Will continue to monitor. Shared Services Manager at bedside- pt incontinent of stool- wound dressing changed per order. See flow sheet. Shared Services Manager at bedside to for wound dressing change per order. See MAR for details. Physical Therapy Facility/Department: [facility] MED SURG Daily Treatment Note NAME: Ganga Stinson : 1960 Date of Service: 06/25/2022 Discharge Recommendations: Continue to assess pending progress, Patient would benefit from continued therapy after discharge, Home with Home health PT Patient Diagnosis(es): The primary encounter diagnosis was Acute kidney injury (HCC). A diagnosis of Hyperkalemia was also pertinent to this visit. Assessment Assessment: Bed mobs SBA/Min A x1. No transfers completed at this time, due to difficulty transferring back to his bed from w/c with w/c height lower than bed. Supine BLE PROM exercises in all planes x15 ea. Seated EOB AROM in LAQ 2x 10. Seated EOB dynamic balance activities completed with pt reaching across midline upward/forward/downward x10 ea with B UE's to engage core for improved stability during transfers. HEP reviewed with patient with no questions at this time. Activity Tolerance: Patient tolerated treatment well Plan Physcial Therapy Plan General Plan: 2 times a day 7 days a week (1x/day on weekends and holidays) Current Treatment Recommendations: Strengthening;Balance training;Functional mobility training;Transfer training;Endurance training;Home exercise program;Therapeutic activities;Safety education & training;Patient/Caregiver education & training Restrictions Restrictions/Precautions Restrictions/Precautions: General Precautions, Fall Risk, Contact Precautions Position Activity Restriction Other position/activity restrictions: Pt is paraplegic and has no functional movement in oj LEs to assist with transfers. Subjective Subjective Subjective: Pt in bed upon arrival with nursing present. Pt agreed to therapy and sitting EOB. Pain: no c/o pain Orientation Overall Orientation Status: Within Functional Limits Objective Bed Mobility Training Bed Mobility Training: Yes Overall Level of Assistance: Minimum assistance;Assist X1;Stand-by assistance Interventions: Verbal cues;Safety awareness training Supine to Sit: Stand-by assistance;Assist X1 Sit to Supine: Minimum assistance;Assist X1 Scooting: Contact-guard assistance;Stand-by assistance;Assist X1 Transfer Training Transfer Training: No Gait Training Gait Training: No Neuromuscular Education Neuromuscular Education: No PT Exercises Exercise Treatment: Supine BLE PROM exercises in all planes x15 ea. Seated EOB AROM in LAQ 2x 10. Seated EOB dynamic balance activities completed with pt reaching across midline upward/forward/downward x10 ea with B UE's to engage core for improved stability during transfers. Safety Devices Type of Devices: All fall risk precautions in place;Bed alarm in place;Call light within reach;Left in bed;Gait belt;Heels elevated for pressure relief;Nurse notified Goals Short Term Goals Time Frame for Short Term Goals: 20 days Short Term Goal 1: Initiate HEP and progress as tolerated for strength, core, and transfers. Short Term Goal 2: Bed mobility will be independent without rails and an appropriate wound relief schedule. Short Term Goal 3: Pt will be able to sit edge of bed and be able to sit unsupported for up to 5 minutes, in order to dress and change position. Short Term Goal 4: Pt will transfer safe and independently from chair to bed for pressure relief and change in position for wound care. Short Term Goal 5: Pt will be able to perform 2 x 10 reps of w/c push-ups and verbalize wound relief. Patient Goals Patient Goals : return home and he is willing in further strengthening and core Education Patient Education Education Given To: Patient Education Provided Comments: Continued education in importance of continuing ROM exercises and ensuring weight shifting frequently to prevent further sores. Education Method: Verbal;Demonstration Barriers to Learning: None Education Outcome: Verbalized understanding;Continued education needed;Demonstrated understanding Therapy Time Individual Concurrent Group Co-treatment Time In 1402 Time Out 1430 Minutes 28 Eloise Lopez PTA Images from the original note were not included. Patient: Ganga Stinson : 1960 Date of Admission: 06/22/2022 Primary Care Physician: Fidel Abbott Today's Date: 06/25/2022 REASON FOR CONSULTATION: Abnormal Lab (Pt sent from urology for abnormal pre-op bloodwork. Urology reports pt potassium is 6.1 and creatinine is 2.0. Sent pt here for evaluation) HPI: Mr. Stinson is a 61 y.o. male who was admitted to the hospital with hyperkalemia. Mr. Stinson has a known history of hypertension. He has diabetes for the past 18 years.He has never been a smoker. He saw a hot die press operator at [facility] 2 years ago in 2020. At that time they did a stress test which was okay. No family history of heart conditions. Echo done today 06/24/2022: Global left ventricular systolic function appears preserved with an estimated ejection fraction of 60%. The left ventricular cavity size is within normal limits and the left ventricular wall thickness is mildly increased. No definite specific wall motion abnormalities were identified. No significant valvular abnormalities. Evidence of mild (grade I) diastolic dysfunction is seen. Mr. Stinson reports he is feeling well today. He had blood work done with Dr. Nagy's office and was called to come to the ER due to an elevated potassium. He is scheduled for a cystoscopy July 07. He reports he feels wore out. Has a history of anemia. Colonoscopy and EGD to be done this Wednesday. Anemic work up in progress. He received 1 unit pRBC today, repeat Hgb 7.8 g/dL. He denies any chest pain or pressure. He is not having any shortness of breath. No lightheaded or dizziness. He self-cath's himself 3 to 4 times per day for the past 18 years. The past 3 months he has been having difficulty self cathing himself. He follows with wound clinic at [facility]. Mr. Stinson also denied any current or recent chest pain, abdominal pain, bleeding problems, problems with his medications or any other concerns at this time. Past Medical History: Diagnosis Date Abnormal EKG 06/23/2022 Acute kidney injury superimposed on CKD (HCC) 06/23/2022 Cauda equina syndrome ([facility]) 2004 Depression Hypertension MRSA (methicillin resistant staph aureus) culture positive 04/10/2017 right ankle Open wound of right ankle 12/30/2016 Paralysis of both lower limbs ([facility]) Paraplegia ([facility]) Type II or unspecified type diabetes mellitus without mention of complication, not stated as uncontrolled Unspecified sleep apnea CURRENT ALLERGIES: Vancomycin REVIEW OF SYSTEMS: 14 systems were reviewed. Pertinent positives and negatives as above, all else negative. Past Surgical History: Procedure Laterality Date APPENDECTOMY BACK SURGERY X2 OTHER SURGICAL HISTORY Right 04/10/2017 I&D rt foot/leg wounds WI I&D BELOW FASCIA FOOT 1 BURSAL SPACE Right 12/25/2016 FOOT DEBRIDEMENT INCISION AND DRAINAGE, 5TH DIGIT, PARTIAL AMB. PLACEMENT OF ANTIBOTIC BEADS performed by Gabriel Haile DPM at [facility] OR WI I&D BELOW FASCIA FOOT 1 BURSAL SPACE Right 04/10/2017 RIGHT ANKLE AND RIGHT HEEL DEBRIDEMENT INCISION AND DRAINAGE WITH CULTURES SENT performed by William Jimenez MD at [facility] OR WI OFFICE/OUTPT VISIT,PROCEDURE ONLY Right 06/14/2017 FOOT DEBRIDEMENT INCISION AND DRAINAGE-ANKLE INCLUDING BONE BIOPSY performed by Yakov Min DPM at [facility] OR TOE AMPUTATION Right 12/25/2016 right fifth toe amputation with I&D, ATB beads per Dr. Haile VENA CAVA FILTER PLACEMENT bronx filter Social History: Social History Tobacco Use Smoking status: Never Smokeless tobacco: Never Vaping Use Vaping Use: Never used Substance Use Topics Alcohol use: No Drug use: No CURRENT MEDICATIONS: No outpatient medications have been marked as taking for the 06/22/22 encounter (Hospital Encounter). 0.9 % sodium chloride infusion, PRN polyethylene glycol (GoLYTELY) solution 4,000 mL, Once multivitamin 1 tablet, Daily amLODIPine (NORVASC) tablet 10 mg, Daily atenolol (TENORMIN) tablet 100 mg, Daily fenofibrate (TRIGLIDE) tablet 160 mg, Daily citalopram (CELEXA) tablet 40 mg, Daily clindamycin (CLEOCIN) 600 mg in dextrose 5 % 50 mL IVPB, Q8H sodium hypochlorite (DAKINS) 0.125 % external solution, Daily 0.9 % sodium chloride infusion, Continuous sodium chloride flush 0.9 % injection 10 mL, 2 times per day sodium chloride flush 0.9 % injection 10 mL, PRN 0.9 % sodium chloride infusion, PRN ondansetron (ZOFRAN-ODT) disintegrating tablet 4 mg, Q8H PRN Or ondansetron (ZOFRAN) injection 4 mg, Q6H PRN polyethylene glycol (GLYCOLAX) packet 17 g, Daily PRN acetaminophen (TYLENOL) tablet 650 mg, Q6H PRN Or acetaminophen (TYLENOL) suppository 650 mg, Q6H PRN [Held by provider] heparin (porcine) injection 5,000 Units, 3 times per day FAMILY HISTORY: family history is not on file. PHYSICAL EXAM: BP (!) 143/76 Pulse 62 Temp 97.8 F (36.6 C) (Temporal) Resp 16 Ht 5' 11 (1.803 m) Wt 248 lb 14.4 oz (112.9 kg) SpO2 94% BMI 34.71 kg/m Body mass index is 34.71 kg/m . Constitutional: He is oriented to person, place, and time. He appears well-developed and well-nourished. In no acute distress. HEENT: Normocephalic and atraumatic.No JVD present. Carotid bruit is not present. No mass and no thyromegaly present. No lymphadenopathy present. Cardiovascular: Normal rate, regular rhythm, normal heart sounds. Exam reveals no gallop and no friction rubs. No heart murmur heard. Pulmonary/Chest: Effort normal and breath sounds normal. No respiratory distress. He has no wheezes, rhonchi or rales. Abdominal: Soft, non-tender. Bowel sounds and aorta are normal. He exhibits no organomegaly, mass or bruit. Extremities: 1+ lower extremity pitting pedal edema. No cyanosis and no clubbing. Pulses are 2+ radial and carotid pulses. 1+ dorsalis pedis and posterior tibial pulses bilaterally. Neurological: He is alert and oriented to person, place, and time. No evidence of gross cranial nerve deficit. Coordination appeared normal. Skin: Skin is warm and dry. There is no rash or diaphoresis. Psychiatric: He has a normal mood and affect. His speech is normal and behavior is normal. MOST RECENT LABS ON RECORD: Lab Results Component Value Date WBC 8.7 06/25/2022 HGB 7.6 (L) 06/25/2022 HCT 24.6 (L) 06/25/2022 PLT 223 06/25/2022 CHOL 147 06/23/2022 TRIG 107 06/23/2022 HDL 28 (L) 06/23/2022 LDLCHOLESTEROL 98 06/23/2022 ALT 9 06/25/2022 AST 10 06/25/2022 NA 139 06/25/2022 K 4.5 06/25/2022 CL 113 (H) 06/25/2022 CREATININE 0.97 06/25/2022 BUN 19 06/25/2022 CO2 20 06/25/2022 INR 1.1 06/24/2022 LABA1C 12.6 (H) 04/09/2017 LABMICR 151 04/24/2015 ASSESSMENT: Patient Active Problem List Diagnosis Date Noted Pressure injury of right ankle, stage 4 ([facility]) 06/24/2022 Open wound of right ankle 12/30/2016 Mixed hyperlipidemia 04/25/2015 Hyponatremia 04/25/2015 Diabetes mellitus ([facility]) 07/02/2011 Paraplegia ([facility]) 03/12/2011 MSSA (methicillin susceptible Staphylococcus aureus) infection 05/28/2017 Bacterial infection 02/17/2017 Enterococcus faecalis infection 12/28/2016 Skin ulcer of right heel with fat layer exposed ([facility]) 09/02/2016 Skin ulcer of right 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 ([facility]) 04/25/2015 Decubitus ulcer of coccygeal region 07/19/2013 Cauda equina syndrome ([facility]) 12/09/2011 Open wound of knee, leg (except thigh), and ankle, complicated 02/25/2011 Acute kidney injury superimposed on CKD ([facility]) 06/23/2022 Abnormal EKG 06/23/2022 Neurogenic bladder 06/23/2022 Hyperkalemia 06/22/2022 Osteomyelitis of ankle or foot, right, acute ([facility]) Decubitus ulcer of coccygeal region, stage 4 ([facility]) 04/09/2017 Cellulitis 04/08/2017 Morbid obesity due to excess calories ([facility]) 01/01/2017 Acute on chronic renal failure ([facility]) 12/30/2016 Osteomyelitis of right foot (HCC) Hypertension Depression PLAN: Pre-Op Clearance: Pre-Operative Risk assessment using 2014 ACC/AHA guidelines Emergent procedure No Active Cardiac Condition No (decompensated HF, Arrhythmia, VA <3 weeks, severe valve disease) Risk Level of Procedure Low Risk (endoscopy, superficial skin, breast, ambulatory, or cataract, etc.) Revised Cardiac Risk Index Risk factors: Diabetic treated with insulin- now on januvia Measurement of Exercise Tolerance before Surgery >4 No According to the 2014 ACC/AHA pre-operative risk assessment guidelines Ganga Stinson is at low risk for major cardiac complications during a low risk procedure and may continue as planned. Specific medication recommendations are listed below. Medications recommended to continue should be taken with a sip of water even when NPO. Abnormal EKG Echo overall unremarkable Serial troponin stable- 59, 58, 57 Repeat EKG is stable. BP and HR are well controlled. LDL was 98 mg/dL Hyperkalemia now resolved MAURO Agree with treatment per primary Essential Hypertension: Controlled Beta [place]: Continue Atenolol (Tenormin) 100 mg daily. OLGA Inibitor/ARB: Not indicated at this time. Diuretics: Not indicated at this time. Calcium Channel [place]: Continue amlodipine (Norvasc) 10 mg once daily. Additional Testing List: I ordered a echocardiogram to better assess for the etiology of this problem and to help guide future management Hyperlipidemia: Mixed Cholesterol Reduction Therapy: Continue fenofibrate 160 mg daily. Obstructive Sleep Apnea: Continue CPAP use. Once again, thank you for allowing me to participate in this patients care. Please do not hesitate to contact me could I be of further assistance. I discussed patient's symptoms and treatment plan with Dr Noe, he was in agreement with the plan. Sincerely, Zoila Villafuerte PA-C [facility] [address] [place], [place] [id number] , I believe that the risk of significant morbidity and mortality related to the patient's current medical conditions are: intermediate-high. June 25, 2022 Dr. Min completed bedside procedure and I sent wound pathology and culture to lab per request of Dr. Min. Patient visited @ bedside for planned minor surgical procedure DDx: stage 4 decubitus of ankle ; fibular malleolus MRR: paralytic WM Suspicious X-ray findings CBC ; WBC 8.7 H/H: 7.6 / 24.6 Heparin hold, > 24 hours (? PTT) Gent. Irrigation to floor CC; Right ankle HPI: IV ATB + Ag Alginate dressing care/ off loading protection ROS: neg. Constitutional Past Medical History: Diagnosis Date Abnormal EKG 06/23/2022 Acute kidney injury superimposed on CKD (HCC) 06/23/2022 Cauda equina syndrome (HCC) 2003 Depression Hypertension MRSA (methicillin resistant staph aureus) culture positive 04/10/2017 right ankle Open wound of right ankle 12/30/2016 Paralysis of both lower limbs ([facility]) Paraplegia ([facility]) Type II or unspecified type diabetes mellitus without mention of complication, not stated as uncontrolled Unspecified sleep apnea Past Surgical History: Procedure Laterality Date APPENDECTOMY BACK SURGERY X2 OTHER SURGICAL HISTORY Right 04/10/2017 I&D rt foot/leg wounds WI I&D BELOW FASCIA FOOT 1 BURSAL SPACE Right 12/25/2016 FOOT DEBRIDEMENT INCISION AND DRAINAGE, 5TH DIGIT, PARTIAL AMB. PLACEMENT OF ANTIBOTIC BEADS performed by Gabriel Haile DPM at [facility] OR WI I&D BELOW FASCIA FOOT 1 BURSAL SPACE Right 04/10/2017 RIGHT ANKLE AND RIGHT HEEL DEBRIDEMENT INCISION AND DRAINAGE WITH CULTURES SENT performed by William Jimenez MD at [facility] OR WI OFFICE/OUTPT VISIT,PROCEDURE ONLY Right 06/14/2017 FOOT DEBRIDEMENT INCISION AND DRAINAGE-ANKLE INCLUDING BONE BIOPSY performed by Yakov Min DPM at [facility] OR TOE AMPUTATION Right 12/25/2016 right fifth toe amputation with I&D, ATB beads per Dr. Haile VENA CAVA FILTER PLACEMENT bronx filter Allergies Allergen Reactions Vancomycin States had kidney issues after taking Current Facility-Administered Medications: gentamicin (GARAMYCIN) 250 mg in sterile water for irrigation 250 mL irrigation, 250 mg, Irrigation, Once, Yakov Min DPM 0.9 % sodium chloride infusion, , IntraVENous, PRN, Shelly Mondragon, SUPERVISOR [employer] - HUMAN RESOURCES DESIGNATE polyethylene glycol (GoLYTELY) solution 4,000 mL, 4,000 mL, Oral, Once, Shelly Mondragon, SUPERVISOR [employer] - HUMAN RESOURCES DESIGNATE multivitamin 1 tablet, 1 tablet, Oral, Daily, Matias Doss MD, 1 tablet at 06/25/22 0724 amLODIPine (NORVASC) tablet 10 mg, 10 mg, Oral, Daily, Matias Doss MD, 10 mg at 06/25/22 0723 atenolol (TENORMIN) tablet 100 mg, 100 mg, Oral, Daily, Matias Doss MD, 100 mg at 06/25/22 0723 fenofibrate (TRIGLIDE) tablet 160 mg, 160 mg, Oral, Daily, Matias Doss MD, 160 mg at 06/25/22 0724 citalopram (CELEXA) tablet 40 mg, 40 mg, Oral, Daily, Matias Doss MD, 40 mg at 06/25/22 0723 clindamycin (CLEOCIN) 600 mg in dextrose 5 % 50 mL IVPB, 600 mg, IntraVENous, Q8H, Shelly Mondragon, SUPERVISOR [employer] - HUMAN RESOURCES DESIGNATE, Stopped at 06/25/22 0922 sodium hypochlorite (DAKINS) 0.125 % external solution, , Irrigation, Daily, Rosie Soni MD, Given at 06/25/22 1127 0.9 % sodium chloride infusion, , IntraVENous, Continuous, Matias Doss MD, Last Rate: 75 mL/hr at 06/25/22 0020, New Bag at 06/25/22 0020 sodium chloride flush 0.9 % injection 10 mL, 10 mL, IntraVENous, 2 times per day, Matias Doss MD sodium chloride flush 0.9 % injection 10 mL, 10 mL, IntraVENous, PRN, Matias Doss MD 0.9 % sodium chloride infusion, , IntraVENous, PRN, Matias Doss MD ondansetron (ZOFRAN-ODT) disintegrating tablet 4 mg, 4 mg, Oral, Q8H PRN OR ondansetron (ZOFRAN) injection 4 mg, 4 mg, IntraVENous, Q6H PRN, Matias Doss MD polyethylene glycol (GLYCOLAX) packet 17 g, 17 g, Oral, Daily PRN, Matias Doss MD acetaminophen (TYLENOL) tablet 650 mg, 650 mg, Oral, Q6H PRN OR acetaminophen (TYLENOL) suppository 650 mg, 650 mg, Rectal, Q6H PRN, Matias Doss MD [Held by provider] heparin (porcine) injection 5,000 Units, 5,000 Units, SubCUTAneous, 3 times per day, Matias Doss MD, 5,000 Units at 06/23/22 8529 PE: VSS, Afebrile, NAD, A&O x 3, Aloof Labs: as above RLE ; lateral ankle ; FT+ ulcerative wound , +PTB IMP: stage 4 ankle decubitus, appaarent bone involvement Stable for minor bedside procedure Tx: see procedure notes P: see orders / AVS Yakov Min DPM 06/25/2022 12:28 PM Occupational Therapy Facility/Department: [facility] MED SURG Daily Treatment Note NAME: Ganga Stinson : 1960 Date of Service: 06/25/2022 Discharge Recommendations: Continue to assess pending progress Patient Diagnosis(es): The primary encounter diagnosis was Acute kidney injury (HCC). A diagnosis of Hyperkalemia was also pertinent to this visit. Assessment Activity Tolerance: Patient tolerated treatment well Discharge Recommendations: Continue to assess pending progress Plan Occupational Therapy Plan Times Per Week: 7x/wk Times Per Day: Once a day Current Treatment Recommendations: Strengthening;Safety education & training;Self-Care / ADL Restrictions General precautions Subjective Subjective Subjective: Pt in bed, nursing requesting pt to stay in bed as Dr is coming to complete debridement soon. Pt and clinician discussed d/c planning, safety, and home modification/set up at length. I have been doing this for 18 years, I think I have everything the way I need it. Pain: denied Objective Vitals Pt declined need for ADLs OT Exercises Exercise Treatment: BUE therex to increase strength/endurance for ease of fxl tasks. Green digiflex x 20, yellow flex bar bends x 20 1# free weights x 20 reps x all planes shoulder elbow and wrist supine HOB raised. Pt demo'd G strength and tolerance with few RBs required for recovery > 20 min BUE therex. Pt edu on HEP for daily maintainance of UB strength. G verbal return. Safety Devices Type of Devices: All fall risk precautions in place;Call light within reach;Left in bed;Bed alarm in place Patient Education Education Given To: Patient Education Provided: Plan of Care;Role of Therapy;Home Exercise Program;Equipment;Energy Conservation Education Provided Comments: rehab folder contents, d/c planning, safety, AE for ease of LB ADLs Education Method: Demonstration;Verbal;Printed Information/Hand-outs Barriers to Learning: None Education Outcome: Verbalized understanding;Demonstrated understanding Goals Short Term Goals Time Frame for Short Term Goals: 20 visits Short Term Goal 1: Patient will tolerate 15 mins of BUE ther ex to increase strength for functional transfers. Short Term Goal 2: Pt. will complete transfer to bedside commode with SBA and G safety to increase (I) with toileting tasks. Short Term Goal 3: Pt. will complete all grooming and UB ADL's with (I) after setup for safe return home. Short Term Goal 4: Pt. will complete toileting and LB ADL's with SBA to increase (I) with ADL routine. Therapy Time Individual Concurrent Group Co-treatment Time In 1023 Time Out 1048 Minutes 25 LAURENT Gomez Dressing change on sacrum/buttocks completed as ordered with assistance from another RN and student. Linens replaced and student completed bed bath. Pt denies any further needs at this time, call light within reach, will continue to monitor. Urology Progress Note CC: urinary retention Subjective: AFVSS Patient Vitals for the past 24 hrs: BP Temp Temp src Pulse Resp SpO2 Height Weight 06/25/22 0645 (!) 143/76 97.8 F (36.6 C) Temporal 62 16 94 % -- -- 06/25/22 0454 -- -- -- -- -- -- 5' 11 (1.803 m) 248 lb 14.4 oz (112.9 kg) 06/25/22 0000 (!) 153/73 98.7 F (37.1 C) Temporal 64 18 94 % -- -- 06/24/22 1843 (!) 143/64 98.7 F (37.1 C) Temporal 67 18 94 % -- -- 06/24/22 1255 (!) 139/56 98.4 F (36.9 C) Temporal 71 18 93 % -- -- 06/24/22 1032 (!) 129/54 98.4 F (36.9 C) Temporal 70 20 93 % -- -- 06/24/22 1016 131/60 98.3 F (36.8 C) Temporal 68 20 93 % -- -- 06/24/22 0945 139/64 98.2 F (36.8 C) Temporal 68 20 94 % -- -- Intake/Output Summary (Last 24 hours) at 06/25/2022 0805 Last data filed at 06/25/2022 0537 Gross per 24 hour Intake 2537.53 ml Output 3225 ml Net -687.47 ml Recent Labs 06/23/22 0640 06/24/22 0615 06/24/22 1400 06/25/22 0625 WBC 9.0 6.6 -- 8.7 HGB 7.5* 6.6* 7.8* 7.6* HCT 25.0* 21.7* 25.1* 24.6* MCV 77.6* 77.0* -- 76.6* PLT 263 208 -- 223 Recent Labs 06/23/22 0640 06/24/22 0615 06/25/22 0625 NA 140 140 139 K 5.4* 4.9 4.5 CL 115* 115* 113* CO2 17* 18* 20 BUN 38* 26* 19 CREATININE 1.55* 1.11 0.97 Recent Labs 06/23/22 0210 COLORU Yellow PHUR 6.0 SPECGRAV 1.020 LEUKOCYTESUR NEGATIVE UROBILINOGEN Normal BILIRUBINUR NEGATIVE Additional Lab/culture results: ROS: Constitutional: Negative for appetite change, chills and fever. Eyes: Negative for redness and visual disturbance. Respiratory: Negative for cough, shortness of breath and wheezing. Cardiovascular: Negative for chest pain and leg swelling. Gastrointestinal: Negative for abdominal pain, constipation, nausea and vomiting. Genitourinary: Negative for decreased urine volume, difficulty urinating, dysuria, enuresis, flank pain, frequency, hematuria, penile discharge, penile pain, scrotal swelling, testicular pain and urgency. Musculoskeletal: Negative for back pain, joint swelling and myalgias. Skin: Negative for color change, rash and wound. Neurological: Negative for dizziness, tremors and numbness. Hematological: Negative for adenopathy. Does not bruise/bleed easily. Physical Exam: Resting/ NAD CTA RRR Soft nt/nd Urine clear No lower extremity swelling or pain Interval Imaging Findings: Impression: Patient Active Problem List Diagnosis Open wound of knee, leg (except thigh), and ankle, complicated Paraplegia (HCC) Diabetes mellitus (HCC) Cauda equina syndrome (HCC) Decubitus ulcer of coccygeal region Mixed hyperlipidemia Hyponatremia Skin ulcer of right 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 (HCC) Skin ulcer of right heel with fat layer exposed (HCC) Hypertension Depression Enterococcus faecalis infection Osteomyelitis of right foot (HCC) Acute on chronic renal failure (HCC) Open wound of right ankle Morbid obesity due to excess calories (HCC) Bacterial infection Cellulitis Decubitus ulcer of coccygeal region, stage 4 (HCC) Osteomyelitis of ankle or foot, right, acute (HCC) MSSA (methicillin susceptible Staphylococcus aureus) infection Hyperkalemia Acute kidney injury superimposed on CKD (HCC) Abnormal EKG Neurogenic bladder Pressure injury of right ankle, stage 4 (HCC) Plan: Continue to monitor Maintain Rowe Await cardiac clearance We will plan for surgery in the next couple of weeks. Angeles Nagy MD 8:05 AM 06/25/2022 Images from the original note were not included. Progress Note SUBJECTIVE: Patient seen for f/u of Hyperkalemia. He resting in bed with no complaints. ROS: Constitutional: negative for fevers, and negative for chills. Respiratory: negative for shortness of breath, negative for cough, and negative for wheezing Cardiovascular: negative for chest pain, and negative for palpitations Gastrointestinal: negative for abdominal pain, negative for nausea,negative for vomiting, negative for diarrhea, and negative for constipation All other systems were reviewed with the patient and are negative unless otherwise stated in HPI OBJECTIVE: Vitals: Vitals: 06/25/22 0645 BP: (!) 143/76 Pulse: 62 Resp: 16 Temp: 97.8 F (36.6 C) SpO2: 94% Weight: 248 lb 14.4 oz (112.9 kg) Height: 5' 11 (180.3 cm) Weight Wt Readings from Last 3 Encounters: 06/25/22 248 lb 14.4 oz (112.9 kg) 06/22/22 250 lb (113.4 kg) 07/14/17 275 lb (124.7 kg) Body mass index is 34.71 kg/m . 24HR INTAKE/OUTPUT: Intake/Output Summary (Last 24 hours) at 06/25/2022 0734 Last data filed at 06/25/2022 0537 Gross per 24 hour Intake 2537.53 ml Output 3225 ml Net -687.47 ml --- Exam: GEN: Awake, alert and oriented x3. EYES: EOMI, pupils equal NECK: Supple. No lymphadenopathy. No carotid bruit CVS: regular rate and rhythm, no audible murmur PULM: CTA, no wheezes, rales or rhonchi, no acute respiratory distress ABD: Bowels sounds normal. Abdomen is soft. No distention. no tenderness to palpation. EXT: no edema bilaterally . No calf tenderness. NEURO: Moves all extremities. Motor and sensory are grossly intact SKIN: No rashes. No skin lesions. Pictures below of right ankle, buttocks and sacrum wounds Right buttock-06/22/2021 Sacrum wound-06/23/2019 22-5 cm depth by 4 cm long by 3 cm wide Left buttock 5 cm depth Right ankle Right lateral ankle --- Diagnostic Data: Complete Blood Count: Recent Labs 06/23/22 0640 06/24/22 0615 06/24/22 1400 06/25/22 0625 WBC 9.0 6.6 -- 8.7 RBC 3.22* 2.82* -- 3.21* HGB 7.5* 6.6* 7.8* 7.6* HCT 25.0* 21.7* 25.1* 24.6* MCV 77.6* 77.0* -- 76.6* MCH 23.3* 23.4* -- 23.7* MCHC 30.0 30.4 -- 30.9 RDW 16.4* 16.2* -- 15.9* PLT 263 208 -- 223 MPV 8.7 8.9 -- 8.9 Last 3 Blood Glucose: Recent Labs 06/22/22 1255 06/22/22 1720 06/23/22 0640 06/24/22 0615 06/25/22 0625 GLUCOSE 137* 148* 119* 137* 144* Comprehensive Metabolic Profile: Recent Labs 06/23/22 0640 06/24/22 0615 06/25/22 0625 NA 140 140 139 K 5.4* 4.9 4.5 CL 115* 115* 113* CO2 17* 18* 20 BUN 38* 26* 19 CREATININE 1.55* 1.11 0.97 GLUCOSE 119* 137* 144* CALCIUM 9.0 8.5* 8.7 PROT 7.1 6.3* 6.7 LABALBU 2.9* 2.4* 2.8* BILITOT 0.2* <0.1* 0.3 ALKPHOS 89 75 75 AST 12 11 10 ALT 11 9 9 Urinalysis: Lab Results Component Value Date/Time NITRU NEGATIVE 06/23/2022 02:10 AM COLORU Yellow 06/23/2022 02:10 AM PHUR 6.0 06/23/2022 02:10 AM WBCUA 0 TO 2 04/08/2017 04:50 PM RBCUA None 04/08/2017 04:50 PM MUCUS NOT REPORTED 04/08/2017 04:50 PM TRICHOMONAS NOT REPORTED 04/08/2017 04:50 PM YEAST 2+ 04/08/2017 04:50 PM BACTERIA NOT REPORTED 04/08/2017 04:50 PM SPECGRAV 1.020 06/23/2022 02:10 AM LEUKOCYTESUR NEGATIVE 06/23/2022 02:10 AM UROBILINOGEN Normal 06/23/2022 02:10 AM BILIRUBINUR NEGATIVE 06/23/2022 02:10 AM GLUCOSEU NEGATIVE 06/23/2022 02:10 AM KETUA NEGATIVE 06/23/2022 02:10 AM AMORPHOUS NOT REPORTED 04/08/2017 04:50 PM HgBA1c: Lab Results Component Value Date/Time LABA1C 12.6 04/09/2017 11:09 AM Lactic Acid: Lab Results Component Value Date/Time LACTA 1.2 04/08/2017 03:23 PM LACTA 1.6 12/23/2016 06:20 PM Troponin: No results for input(s): TROPONINI in the last 72 hours. CRP: No results for input(s): CRP in the last 72 hours. Radiology/Imaging: XR ANKLE RIGHT (MIN 3 VIEWS) Final Result 1. Nonspecific diffuse subcutaneous edema. 2. Periostitis at the lateral aspect of the fibula distally. There was osteomyelitis in this region previously. This could reflect chronic osteomyelitis. Elsewhere, there is no subcutaneous air or evidence of osteomyelitis. ASSESSMENT / PLAN: MEDICAL DECISION MAKING: Primary Problem(s): Hyperkalemia Differential diagnoses: Dehydration Condition is an undiagnosed new problem with uncertain prognosis Condition is Resolved Treatment plan: Consultation: Nephrology Imaging: no further imaging studies ordered today Medications: None Medication Monitoring / High Risk Medications: none Labs daily - normal today Abnormal EKG-possibly due to hyperkalemia Condition is improving Treatment plan: Consultation: Cardiology Surgery clearance requested by urology Imaging: Echo-EF 60%. No valvular abnormalities. Medications: Medications not indicated at this time Decubitus ulcer coccyx region Condition is a chronic stable condition Treatment plan: Consultation: General surgery Imaging: no further imaging studies ordered today Medications: Medications not indicated at this time Open wound right ankle Condition is a chronic stable condition Treatment plan: Consultation: Podiatry Imaging: Xray right ankle ordered Medications: Continue Cleocin MAURO on CKD Condition is resolved Treatment plan: Consultation: Nephrology Imaging: no further imaging studies ordered today Medications: IVL Rowe catheter Monitor labs.normal Cauda equina syndrome Condition is a chronic stable condition Treatment plan: Consultation: Urology Imaging: no further imaging studies ordered today Medications: Medications not indicated at this time Rowe catheter to remain in place on discharge Plan will be outpatient cystoscopy Anemia Condition is worsening Treatment plan: Consultation: GI Imaging: no further imaging studies ordered today Medications: Transfused 1 unit PRBC 06/25 TIBC-175, B12-446 Folate-8.2, IRon-33 Monitor labs-Hgb 7.6 today Nutrition status: morbid obesity Egg Tester consult initiated Hospital Prophylaxis: DVT: Heparin Stress Ulcer: na Disposition: Shared decision making: All test results, treatment options and disposition options were discussed with the patient today Social determinants of health that may impact management: none Code status: Full Code Disposition: Discharge plan is home [facility] Advanced Care Planning documentation: [x] I have confirmed that the patient's Advance Care Plan is present, Code Status is documented, or surrogate decision maker is listed in the patient's medical record [If yes , STOP HERE] [] The patient's Advance Care Plan is NOT present because: [] I confirmed today that the patient does not wish or was not able to name a surrogate decision maker or provide and advance care plan. [] Hospice care is currently being provided or has been provided within the calendar year. [] I did NOT confirm today the presence of an Advance Care Plan or surrogate decision maker documented within the patient's medical record. [DOES NOT SATISFY MIPS PERFORMANCE] Shelly Mondragon APRN - DOLLY , [facility] 06/25/2022, 7:34 AM IVETT Newman Associated attestation - Matias Doss MD - 06/25/2022 7:34 PM EDT Images from the original note were not included. [address], [address] Attestation Patient: Ganga Stinson Date of Admission: 06/22/2022 4:21 PM Hospital Day # 3 Date of Evaluation: 06/25/2022 I personally evaluated and examined the patient [id number] in conjunction with the PA/RN VISITING and agree with the management and dispostition of the patient. Please see the PA/RN VISITING's note for full details. My kohli findings are: SUBJECTIVE: Patient seen for follow up of Hyperkalemia. Patient seen and examined at the bed side , no new acute events overnight notes and no new complains at this time. He is feeling about the same as prior. Plans for GI procedure tomorrow. Hyperkalemia has resolved. Case discussed with Urology. Notes from nursing staff and Consults had been reviewed, and the overnight progress had been checked with the nursing staff as well. OBJECTIVE: Vitals: Temp: 98.2 F (36.8 C) BP: (!) 151/70 Resp: 22 Heart Rate: 63 SpO2: 94 % Weight Wt Readings from Last 3 Encounters: 06/25/22 248 lb 14.4 oz (112.9 kg) 06/22/22 250 lb (113.4 kg) 07/14/17 275 lb (124.7 kg) Body mass index is 34.71 kg/m . 24HR INTAKE/OUTPUT: Intake/Output Summary (Last 24 hours) at 06/25/2022 1932 Last data filed at 06/25/2022 1845 Gross per 24 hour Intake 1826.53 ml Output 2650 ml Net -823.47 ml --- Exam: GEN: Awake, alert and oriented x3. EYES: EOMI, pupils equal NECK: Supple. No lymphadenopathy. No carotid bruit CVS: regular rate and rhythm, no audible murmur PULM: CTA, no wheezes, rales or rhonchi, no acute respiratory distress ABD: Bowels sounds normal. Abdomen is soft. No distention. no tenderness to palpation. EXT: no edema bilaterally . No calf tenderness. NEURO: Moves all extremities. Motor and sensory are grossly intact/diminished in bilateral LE (unchanged since prior) SKIN: No rashes. Multiple skin wounds/ulcerations noted. DATA: Complete Blood Count: Recent Labs 06/23/22 0640 06/24/22 0615 06/24/22 1400 06/25/22 0625 WBC 9.0 6.6 -- 8.7 RBC 3.22* 2.82* -- 3.21* HGB 7.5* 6.6* 7.8* 7.6* HCT 25.0* 21.7* 25.1* 24.6* MCV 77.6* 77.0* -- 76.6* RDW 16.4* 16.2* -- 15.9* PLT 263 208 -- 223 Recent Labs 06/23/22 0640 06/24/22 0615 06/25/22 0625 SEGS 62 61 64 NEUTROABS 5.55 4.02 5.60 LYMPHOPCT 22* 23* 19* LYMPHSABS 1.94 1.52 1.63 MONOPCT 8 8 9 EOSRELPCT 7* 7* 7* BASOPCT 0 0 0 IMMGRAN 1* 1* 1* CMP: Lab Results Component Value Date GLUCOSE 144 (H) 06/25/2022 BUN 19 06/25/2022 CREATININE 0.97 06/25/2022 NA 139 06/25/2022 K 4.5 06/25/2022 CALCIUM 8.7 06/25/2022 CL 113 (H) 06/25/2022 CO2 20 06/25/2022 PROT 6.7 06/25/2022 LABALBU 2.8 (L) 06/25/2022 BILITOT 0.3 06/25/2022 ALKPHOS 75 06/25/2022 ALT 9 06/25/2022 AST 10 06/25/2022 UA: Lab Results Component Value Date COLORU Yellow 06/23/2022 SPECGRAV 1.020 06/23/2022 WBCUA 0 TO 2 04/08/2017 RBCUA None 04/08/2017 EPITHUA 2 TO 5 04/08/2017 LEUKOCYTESUR NEGATIVE 06/23/2022 GLUCOSEU NEGATIVE 06/23/2022 KETUA NEGATIVE 06/23/2022 PROTEINU NEGATIVE 06/23/2022 HGBUR NEGATIVE 06/23/2022 CASTUA NOT REPORTED 04/08/2017 CRYSTUA NOT REPORTED 04/08/2017 BACTERIA NOT REPORTED 04/08/2017 YEAST 2+ (A) 04/08/2017 Lactic Acid: Lab Results Component Value Date/Time LACTA 1.2 04/08/2017 03:23 PM LACTA 1.6 12/23/2016 06:20 PM High Sensitivity Troponin: Recent Labs 06/24/22 0000 06/24/22 0615 06/24/22 1143 TROPHS 59* 58* 57* Radiology/Imaging: XR ANKLE RIGHT (MIN 3 VIEWS) Final Result 1. Nonspecific diffuse subcutaneous edema. 2. Periostitis at the lateral aspect of the fibula distally. There was osteomyelitis in this region previously. This could reflect chronic osteomyelitis. Elsewhere, there is no subcutaneous air or evidence of osteomyelitis. ASSESSMENT: Principal Problem: Hyperkalemia Active Problems: Paraplegia (HCC) Open wound of right ankle Pressure injury of right ankle, stage 4 ([facility]) Cauda equina syndrome (HCC) Decubitus ulcer of coccygeal region Acute kidney injury superimposed on CKD (HCC) Abnormal EKG Acute kidney injury (HCC) Resolved Problems: * No resolved hospital problems. * PLAN: I agree with the plan as outlined in the RN VISITING/PA's note Disposition: Discharge plan is pending Please note that this chart was generated using voice recognition [employer] dictation software. Although every effort was made to ensure the accuracy of this automated tax intern, some errors in tax intern may have occurred. Matias Doss MD 06/25/2022 7:32 PM Pt vitals and assessment completed, see flowsheet. Pt A&Ox4, breathing normal. Morning hemoglobin is 7.6. Pt denies pain or sob. Pt denies pain or any further needs at this time, call light within reach, will continue to monitor. Shared Services Manager at bedside at this time to perform second shift assessment. Patient is lying in bed at this time. Vital signs taken and assessment completed at this time. Patient is alert and oriented and has no complaints of pain at this time. Wound care completed at this time, patient tolerated well. Scheduled Cleocin hung at this time. Patient denies any further needs at this time. Call light within reach, care ongoing. Shared Services Manager at bedside at this time to perform initial shift assessment. Patient is lying in bed at this time. Vital signs taken and assessment completed at this time. Patient is alert and oriented and has no complaints of pain of pain at this time. Patient denies any further needs at this time. Call light within reach, care ongoing. Physical Therapy Facility/Department: [facility] MED SURG Daily Treatment Note NAME: Ganga Stinson : 1960 Date of Service: 06/24/2022 Discharge Recommendations: Continue to assess pending progress, Patient would benefit from continued therapy after discharge, Home with Home health PT Patient Diagnosis(es): The primary encounter diagnosis was Acute kidney injury (HCC). A diagnosis of Hyperkalemia was also pertinent to this visit. Assessment Assessment: Supine BLE ther ex AAROM/PROM x15. Manual hamstring stretching to B LE 3x20 . B hip flex stretching 3x20 . No transfers completed at this time d/t fatigue from just finishing wound care. Activity Tolerance: Patient tolerated treatment well;Patient limited by fatigue Plan Physcial Therapy Plan General Plan: 2 times a day 7 days a week (1x/daily on weekends) Current Treatment Recommendations: Strengthening;Balance training;Functional mobility training;Transfer training;Endurance training;Home exercise program;Therapeutic activities;Safety education & training;Patient/Caregiver education & training Restrictions Restrictions/Precautions Restrictions/Precautions: General Precautions, Fall Risk, Contact Precautions Position Activity Restriction Other position/activity restrictions: Pt is paraplegic and has no functional movement in oj LEs to assist with transfers. Subjective Subjective Subjective: Pt in bed upon arrival, states he is doing ok. Checked with nurse prior, hemoglobin is higher than this morning, but pt just had dressing change. Pain: no pain, just fatigued Orientation Overall Orientation Status: Within Functional Limits Objective Vitals Bed Mobility Training Bed Mobility Training: No Overall Level of Assistance: Stand-by assistance;Assist X1;Minimum assistance Interventions: Verbal cues Rolling: Minimum assistance;Assist X1;Other (comment) (Rolling onto L side for testing, pillows placed behind. Min A x1 for LE assist in rolling.) Transfer Training Transfer Training: No Gait Training Gait Training: No Neuromuscular Education Neuromuscular Education: No PT Exercises Exercise Treatment: Supine BLE ther ex AAROM/PROM x15. Manual hamstring stretching to B LE 3x20 . B hip flex stretching 3x20 . Safety Devices Type of Devices: All fall risk precautions in place;Call light within reach;Left in bed;Nurse notified;Heels elevated for pressure relief;Patient at risk for falls (no alarm upon entry) Goals Short Term Goals Time Frame for Short Term Goals: 20 days Short Term Goal 1: Initiate HEP and progress as tolerated for strength, core, and transfers. Short Term Goal 2: Bed mobility will be independent without rails and an appropriate wound relief schedule. Short Term Goal 3: Pt will be able to sit edge of bed and be able to sit unsupported for up to 5 minutes, in order to dress and change position. Short Term Goal 4: Pt will transfer safe and independently from chair to bed for pressure relief and change in position for wound care. Short Term Goal 5: Pt will be able to perform 2 x 10 reps of w/c push-ups and verbalize wound relief. Patient Goals Patient Goals : return home and he is willing in further strengthening and core Education Patient Education Education Given To: Patient Education Provided: Role of Therapy;Plan of Care Education Provided Comments: Stretching to decrease risk of contractures Education Method: Verbal Barriers to Learning: None Education Outcome: Verbalized understanding;Demonstrated understanding;Continued education needed Therapy Time Individual Concurrent Group Co-treatment Time In 1624 Time Out 1643 Minutes 19 Martita Tam PTA Dressing change completed as ordered, see flowsheet for assessment. Pt is being assisted washing up by aide. Images from the original note were not included. Patient: Ganga Stinson : 1960 Date of Admission: 06/22/2022 Primary Care Physician: Fidel Abbott Today's Date: 06/24/2022 REASON FOR CONSULTATION: Abnormal Lab (Pt sent from urology for abnormal pre-op bloodwork. Urology reports pt potassium is 6.1 and creatinine is 2.0. Sent pt here for evaluation) HPI: Mr. Stinson is a 61 y.o. male who was admitted to the hospital with hyperkalemia. Mr. Stinson has a known history of hypertension. He has diabetes for the past 18 years.He has never been a smoker. He saw a hot die press operator at [facility] 2 years ago in 2020. At that time they did a stress test which was okay. No family history of heart conditions. Echo done today 06/24/2022: Global left ventricular systolic function appears preserved with an estimated ejection fraction of 60%. The left ventricular cavity size is within normal limits and the left ventricular wall thickness is mildly increased. No definite specific wall motion abnormalities were identified. No significant valvular abnormalities. Evidence of mild (grade I) diastolic dysfunction is seen. Mr. Stinson reports he is feeling well today. He had blood work done with Dr. Nagy's office and was called to come to the ER due to an elevated potassium. He is scheduled for a cystoscopy July 07. He reports he feels wore out. Has a history of anemia. Colonoscopy and EGD to be done this Wednesday. Anemic work up in progress. He received 1 unit pRBC today, repeat Hgb 7.8 g/dL. He denies any chest pain or pressure. He is not having any shortness of breath. No lightheaded or dizziness. He self-cath's himself 3 to 4 times per day for the past 18 years. The past 3 months he has been having difficulty self cathing himself. He follows with wound clinic at [facility]. Mr. Stinson also denied any current or recent chest pain, abdominal pain, bleeding problems, problems with his medications or any other concerns at this time. Past Medical History: Diagnosis Date Abnormal EKG 06/23/2022 Acute kidney injury superimposed on CKD (HCC) 06/23/2022 Cauda equina syndrome (HCC) 2004 Depression Hypertension MRSA (methicillin resistant staph aureus) culture positive 04/10/2017 right ankle Open wound of right ankle 12/30/2016 Paralysis of both lower limbs (HCC) Paraplegia ([facility]) Type II or unspecified type diabetes mellitus without mention of complication, not stated as uncontrolled Unspecified sleep apnea CURRENT ALLERGIES: Vancomycin REVIEW OF SYSTEMS: 14 systems were reviewed. Pertinent positives and negatives as above, all else negative. Past Surgical History: Procedure Laterality Date APPENDECTOMY BACK SURGERY X2 OTHER SURGICAL HISTORY Right 04/10/2017 I&D rt foot/leg wounds [place] I&D BELOW FASCIA FOOT 1 BURSAL SPACE Right 12/25/2016 FOOT DEBRIDEMENT INCISION AND DRAINAGE, 5TH DIGIT, PARTIAL AMB. PLACEMENT OF ANTIBOTIC BEADS performed by Gabriel Haile DPM at [facility] OR [place] I&D BELOW FASCIA FOOT 1 BURSAL SPACE Right 04/10/2017 RIGHT ANKLE AND RIGHT HEEL DEBRIDEMENT INCISION AND DRAINAGE WITH CULTURES SENT performed by William Jimenez MD at [facility] OR [place] OFFICE/OUTPT VISIT,PROCEDURE ONLY Right 06/14/2017 FOOT DEBRIDEMENT INCISION AND DRAINAGE-ANKLE INCLUDING BONE BIOPSY performed by Yakov Min DPM at [facility] OR TOE AMPUTATION Right 12/25/2016 right fifth toe amputation with I&D, ATB beads per Dr. Haile VENA CAVA FILTER PLACEMENT edgard filter Social History: Social History Tobacco Use Smoking status: Never Smokeless tobacco: Never Vaping Use Vaping Use: Never used Substance Use Topics Alcohol use: No Drug use: No CURRENT MEDICATIONS: No outpatient medications have been marked as taking for the 06/22/22 encounter (Hospital Encounter). 0.9 % sodium chloride infusion, PRN [START ON 06/25/2022] polyethylene glycol (GoLYTELY) solution 4,000 mL, Once amLODIPine (NORVASC) tablet 10 mg, Daily atenolol (TENORMIN) tablet 100 mg, Daily fenofibrate (TRIGLIDE) tablet 160 mg, Daily citalopram (CELEXA) tablet 40 mg, Daily clindamycin (CLEOCIN) 600 mg in dextrose 5 % 50 mL IVPB, Q8H sodium hypochlorite (DAKINS) 0.125 % external solution, Daily 0.9 % sodium chloride infusion, Continuous sodium chloride flush 0.9 % injection 10 mL, 2 times per day sodium chloride flush 0.9 % injection 10 mL, PRN 0.9 % sodium chloride infusion, PRN ondansetron (ZOFRAN-ODT) disintegrating tablet 4 mg, Q8H PRN Or ondansetron (ZOFRAN) injection 4 mg, Q6H PRN polyethylene glycol (GLYCOLAX) packet 17 g, Daily PRN acetaminophen (TYLENOL) tablet 650 mg, Q6H PRN Or acetaminophen (TYLENOL) suppository 650 mg, Q6H PRN heparin (porcine) injection 5,000 Units, 3 times per day FAMILY HISTORY: family history is not on file. PHYSICAL EXAM: BP (!) 129/54 Pulse 70 Temp 98.4 F (36.9 C) (Temporal) Resp 20 Ht 5' 11 (1.803 m) Wt 248 lb 11.2 oz (112.8 kg) SpO2 93% BMI 34.69 kg/m Body mass index is 34.69 kg/m . Constitutional: He is oriented to person, place, and time. He appears well-developed and well-nourished. In no acute distress. HEENT: Normocephalic and atraumatic.No JVD present. Carotid bruit is not present. No mass and no thyromegaly present. No lymphadenopathy present. Cardiovascular: Normal rate, regular rhythm, normal heart sounds. Exam reveals no gallop and no friction rubs. No heart murmur heard. Pulmonary/Chest: Effort normal and breath sounds normal. No respiratory distress. He has no wheezes, rhonchi or rales. Abdominal: Soft, non-tender. Bowel sounds and aorta are normal. He exhibits no organomegaly, mass or bruit. Extremities: 1+ lower extremity pitting pedal edema. No cyanosis and no clubbing. Pulses are 2+ radial and carotid pulses. 1+ dorsalis pedis and posterior tibial pulses bilaterally. Neurological: He is alert and oriented to person, place, and time. No evidence of gross cranial nerve deficit. Coordination appeared normal. Skin: Skin is warm and dry. There is no rash or diaphoresis. Psychiatric: He has a normal mood and affect. His speech is normal and behavior is normal. MOST RECENT LABS ON RECORD: Lab Results Component Value Date WBC 6.6 06/24/2022 HGB 6.6 (LL) 06/24/2022 HCT 21.7 (L) 06/24/2022 PLT 208 06/24/2022 CHOL 147 06/23/2022 TRIG 107 06/23/2022 HDL 28 (L) 06/23/2022 LDLCHOLESTEROL 98 06/23/2022 ALT 9 06/24/2022 AST 11 06/24/2022 NA 140 06/24/2022 K 4.9 06/24/2022 CL 115 (H) 06/24/2022 CREATININE 1.11 06/24/2022 BUN 26 (H) 06/24/2022 CO2 18 (L) 06/24/2022 INR 1.1 06/24/2022 LABA1C 12.6 (H) 04/09/2017 LABMICR 151 04/24/2015 ASSESSMENT: Patient Active Problem List Diagnosis Date Noted Open wound of right ankle 12/30/2016 Mixed hyperlipidemia 04/25/2015 Hyponatremia 04/25/2015 Diabetes mellitus ([facility]) 07/02/2011 Paraplegia ([facility]) 03/12/2011 MSSA (methicillin susceptible Staphylococcus aureus) infection 05/28/2017 Bacterial infection 02/17/2017 Enterococcus faecalis infection 12/28/2016 Skin ulcer of right heel with fat layer exposed ([facility]) 09/02/2016 Skin ulcer of right 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 ([facility]) 04/25/2015 Decubitus ulcer of coccygeal region 07/19/2013 Cauda equina syndrome ([facility]) 12/09/2011 Open wound of knee, leg (except thigh), and ankle, complicated 02/25/2011 Acute kidney injury superimposed on CKD ([facility]) 06/23/2022 Abnormal EKG 06/23/2022 Neurogenic bladder 06/23/2022 Hyperkalemia 06/22/2022 Osteomyelitis of ankle or foot, right, acute ([facility]) Decubitus ulcer of coccygeal region, stage 4 ([facility]) 04/09/2017 Cellulitis 04/08/2017 Morbid obesity due to excess calories ([facility]) 01/01/2017 Acute on chronic renal failure ([facility]) 12/30/2016 Osteomyelitis of right foot ([facility]) Hypertension Depression PLAN: Abnormal EKG Agree with getting an echocardiogram to better assess the severity of this problem. Serial troponin stable- 59, 58, 57 Repeat EKG is stable. BP and HR are well controlled. LDL was 98 mg/dL Hyperkalemia 5.4 Potassium now 4.9 mmol/L MAURO Agree with treatment per primary Essential Hypertension: Controlled Beta [place]: Continue Atenolol (Tenormin) 100 mg daily. OLGA Inibitor/ARB: Not indicated at this time. Diuretics: Not indicated at this time. Calcium Channel [place]: Continue amlodipine (Norvasc) 10 mg once daily. Additional Testing List: I ordered a echocardiogram to better assess for the etiology of this problem and to help guide future management Hyperlipidemia: Mixed Cholesterol Reduction Therapy: Continue fenofibrate 160 mg daily. Obstructive Sleep Apnea: Continue CPAP use. Once again, thank you for allowing me to participate in this patients care. Please do not hesitate to contact me could I be of further assistance. I discussed patient's symptoms and treatment plan with Dr Noe, he was in agreement with the plan. Sincerely, Zoila Villafuerte PA-C [facility] [address] [place] [id number] , I believe that the risk of significant morbidity and mortality related to the patient's current medical conditions are: intermediate-high. June 24, 2022 Blood administration has been initiated, pt observed for first 15 minutes and vitals taken according to policy. The rate was increased to 120ml/hr. Pt denies any further needs at this time, call light within reach, will continue to monitor. Occupational Therapy Facility/Department: [facility] MED SURG Daily Treatment Note NAME: Ganga Stinson : 1960 Date of Service: 06/24/2022 Discharge Recommendations: Continue to assess pending progress Patient Diagnosis(es): The primary encounter diagnosis was Acute kidney injury (HCC). A diagnosis of Hyperkalemia was also pertinent to this visit. Assessment Activity Tolerance: Patient tolerated treatment well;Patient limited by fatigue;Treatment limited secondary to medical complications Plan Occupational Therapy Plan Times Per Week: 7x/wk Times Per Day: Once a day Current Treatment Recommendations: Strengthening;Safety education & training;Self-Care / ADL Restrictions Restrictions/Precautions Restrictions/Precautions: General Precautions;Fall Risk;Contact Precautions Position Activity Restriction Other position/activity restrictions: Pt is paraplegic and has no functional movement in oj LEs to assist with transfers Subjective Subjective Subjective: pt lying in bed. denying getting into chair. per nursing- pt getting unit of blood this morning Pain: pt had no complaints of pain. just tired Orientation Overall Orientation Status: Within Functional Limits Pain: no pain, just fatigued Objective Vitals Bed Mobility Training Bed Mobility Training: (positioned on side for [employer] to complete ultrasound at end of session) Overall Level of Assistance: Stand-by assistance;Assist X1;Minimum assistance Interventions: Verbal cues Rolling: Minimum assistance;Assist X1;Other (comment) (Rolling onto L side for testing, pillows placed behind. Min A x1 for LE assist in rolling.) OT Exercises Exercise Treatment: Pt tolerated BUE Ther ex with 2# dumbbell x 7 planes x 1 set and red digi flex x15 rpes x1 set to increase UE strength and endurance in order to ease completion of ADL tasks. Pt required RBs as needed secondary to fatigue. Safety Devices Type of Devices: All fall risk precautions in place;Bed alarm in place;Call light within reach;Left in bed;Nurse notified;Heels elevated for pressure relief;Patient at risk for falls Patient Education Education Given To: Patient Education Provided: Role of Therapy;Plan of Care;Transfer Training Education Method: Demonstration;Verbal Education Outcome: Verbalized understanding;Demonstrated understanding Goals Short Term Goals Time Frame for Short Term Goals: 20 visits Short Term Goal 1: Patient will tolerate 15 mins of BUE ther ex to increase strength for functional transfers. Short Term Goal 2: Pt. will complete transfer to bedside commode with SBA and G safety to increase (I) with toileting tasks. Short Term Goal 3: Pt. will complete all grooming and UB ADL's with (I) after setup for safe return home. Short Term Goal 4: Pt. will complete toileting and LB ADL's with SBA to increase (I) with ADL routine. Therapy Time Individual Concurrent Group Co-treatment Time In 927 Time Out 0953 Minutes 25 Gabrielle ABRAHAM/Cristina 06/24/22 Pt vitals and assessment completed, see flowsheet. Pt A&O x4, breathing normal. Pt denies chest pain, feeling sob, or dizziness. Pt dressings show no drainage through the top gauze, will change dressing as ordered this afternoon. Pt denies pain or any further needs at this time, call light within reach will continue to monitor. Gastroenterology Progress Note Discussed case with primary team Anemia of hemoglobin 6; no hematemesis, no hematochezia or melena reported. Iron deficiency work-up is warranted. EGD and colonoscopy - anticipate procedure on Wednesday06/26/2022. Golytely prep on 06/25/2022 6pm KATERINA ATKINS MD [facility] Gastroenterology Images from the original note were not included. Progress Note SUBJECTIVE: Patient seen for f/u of Hyperkalemia. He resting in bed with no complaints. Stated when he has a BM and wipes he does have some blood but is coming from one of the wounds. ROS: Constitutional: negative for fevers, and negative for chills. Respiratory: negative for shortness of breath, negative for cough, and negative for wheezing Cardiovascular: negative for chest pain, and negative for palpitations Gastrointestinal: negative for abdominal pain, negative for nausea,negative for vomiting, negative for diarrhea, and negative for constipation All other systems were reviewed with the patient and are negative unless otherwise stated in HPI OBJECTIVE: Vitals: Vitals: 06/24/22 0645 BP: 128/61 Pulse: 65 Resp: 20 Temp: 98.2 F (36.8 C) SpO2: 95% Weight: 248 lb 11.2 oz (112.8 kg) Height: 5' 11 (180.3 cm) Weight Wt Readings from Last 3 Encounters: 06/24/22 248 lb 11.2 oz (112.8 kg) 06/22/22 250 lb (113.4 kg) 07/14/17 275 lb (124.7 kg) Body mass index is 34.69 kg/m . 24HR INTAKE/OUTPUT: Intake/Output Summary (Last 24 hours) at 06/24/2022 0734 Last data filed at 06/24/2022 0400 Gross per 24 hour Intake 2786.28 ml Output 1900 ml Net 886.28 ml --- Exam: GEN: Awake, alert and oriented x3. EYES: EOMI, pupils equal NECK: Supple. No lymphadenopathy. No carotid bruit CVS: regular rate and rhythm, no audible murmur PULM: CTA, no wheezes, rales or rhonchi, no acute respiratory distress ABD: Bowels sounds normal. Abdomen is soft. No distention. no tenderness to palpation. EXT: no edema bilaterally . No calf tenderness. NEURO: Moves all extremities. Motor and sensory are grossly intact SKIN: No rashes. No skin lesions. Pictures below of right ankle, buttocks and sacrum wounds Right buttock-06/22/2021 Sacrum wound-06/23/2019 22-5 cm depth by 4 cm long by 3 cm wide Left buttock 5 cm depth Right ankle Right lateral ankle --- Diagnostic Data: Complete Blood Count: Recent Labs 06/22/22 1720 06/23/22 0640 06/24/22 0615 WBC 12.8* 9.0 6.6 RBC 3.56* 3.22* 2.82* HGB 8.3* 7.5* 6.6* HCT 27.6* 25.0* 21.7* MCV 77.5* 77.6* 77.0* MCH 23.3* 23.3* 23.4* MCHC 30.1 30.0 30.4 RDW 16.2* 16.4* 16.2* PLT 338 263 208 MPV 8.6 8.7 8.9 Last 3 Blood Glucose: Recent Labs 06/22/22 1255 06/22/22 1720 06/23/22 0640 06/24/22 0615 GLUCOSE 137* 148* 119* 137* Comprehensive Metabolic Profile: Recent Labs 06/22/22 1720 06/23/22 0640 06/24/22 0615 NA 137 140 140 K 6.3* 5.4* 4.9 CL 110* 115* 115* CO2 16* 17* 18* BUN 49* 38* 26* CREATININE 1.93* 1.55* 1.11 GLUCOSE 148* 119* 137* CALCIUM 9.1 9.0 8.5* PROT 8.1 7.1 6.3* LABALBU 3.2* 2.9* 2.4* BILITOT <0.1* 0.2* <0.1* ALKPHOS 101 89 75 AST 13 12 11 ALT 8 11 9 Urinalysis: Lab Results Component Value Date/Time NITRU NEGATIVE 06/23/2022 02:10 AM COLORU Yellow 06/23/2022 02:10 AM PHUR 6.0 06/23/2022 02:10 AM WBCUA 0 TO 2 04/08/2017 04:50 PM RBCUA None 04/08/2017 04:50 PM MUCUS NOT REPORTED 04/08/2017 04:50 PM TRICHOMONAS NOT REPORTED 04/08/2017 04:50 PM YEAST 2+ 04/08/2017 04:50 PM BACTERIA NOT REPORTED 04/08/2017 04:50 PM SPECGRAV 1.020 06/23/2022 02:10 AM LEUKOCYTESUR NEGATIVE 06/23/2022 02:10 AM UROBILINOGEN Normal 06/23/2022 02:10 AM BILIRUBINUR NEGATIVE 06/23/2022 02:10 AM GLUCOSEU NEGATIVE 06/23/2022 02:10 AM KETUA NEGATIVE 06/23/2022 02:10 AM AMORPHOUS NOT REPORTED 04/08/2017 04:50 PM HgBA1c: Lab Results Component Value Date/Time LABA1C 12.6 04/09/2017 11:09 AM Lactic Acid: Lab Results Component Value Date/Time LACTA 1.2 04/08/2017 03:23 PM LACTA 1.6 12/23/2016 06:20 PM Troponin: No results for input(s): TROPONINI in the last 72 hours. CRP: No results for input(s): CRP in the last 72 hours. Radiology/Imaging: XR ANKLE RIGHT (MIN 3 VIEWS) Final Result 1. Nonspecific diffuse subcutaneous edema. 2. Periostitis at the lateral aspect of the fibula distally. There was osteomyelitis in this region previously. This could reflect chronic osteomyelitis. Elsewhere, there is no subcutaneous air or evidence of osteomyelitis. ASSESSMENT / PLAN: MEDICAL DECISION MAKING: Primary Problem(s): Hyperkalemia Differential diagnoses: Dehydration Condition is an undiagnosed new problem with uncertain prognosis Condition is Resolved Treatment plan: Consultation: Nephrology Imaging: no further imaging studies ordered today Medications: None Medication Monitoring / High Risk Medications: none Abnormal EKG-possibly due to hyperkalemia Condition is improving Treatment plan: Consultation: Cardiology Surgery clearance requested by urology Imaging: Echo ordered Medications: Medications not indicated at this time Decubitus ulcer coccyx region Condition is a chronic stable condition Treatment plan: Consultation: General surgery Imaging: no further imaging studies ordered today Medications: Medications not indicated at this time Open wound right ankle Condition is a chronic stable condition Treatment plan: Consultation: Podiatry Imaging: Xray right ankle ordered Medications: Continue Cleocin MAURO on CKD Condition is improving Treatment plan: Consultation: Nephrology Imaging: no further imaging studies ordered today Medications: IV fluids Rowe catheter Monitor labs Cauda equina syndrome Condition is a chronic stable condition Treatment plan: Consultation: Urology Imaging: no further imaging studies ordered today Medications: Medications not indicated at this time Rowe catheter to remain in place on discharge Plan will be outpatient cystoscopy Anemia Condition is worsening Treatment plan: Consultation: GI Imaging: no further imaging studies ordered today Medications: Transfuse 1 unit PRBC TIBC, B12 Folate, IRon Monitor labs Nutrition status: morbid obesity Egg Tester consult initiated Hospital Prophylaxis: DVT: Heparin Stress Ulcer: na Disposition: Shared decision making: All test results, treatment options and disposition options were discussed with the patient today Social determinants of health that may impact management: none Code status: Full Code Disposition: Discharge plan is home [facility] Advanced Care Planning documentation: [x] I have confirmed that the patient's Advance Care Plan is present, Code Status is documented, or surrogate decision maker is listed in the patient's medical record [If yes , STOP HERE] [] The patient's Advance Care Plan is NOT present because: [] I confirmed today that the patient does not wish or was not able to name a surrogate decision maker or provide and advance care plan. [] Hospice care is currently being provided or has been provided within the calendar year. [] I did NOT confirm today the presence of an Advance Care Plan or surrogate decision maker documented within the patient's medical record. [DOES NOT SATISFY [facility] PERFORMANCE] Shelly Mondragon APRN - HUMAN RESOURCES DESIGNATE , [employer], RN VISITING-C Hospitalist Medicine 06/24/2022, 7:34 AM Blood Transfusion Consent I have discussed with the Patient and/or Medical POA the rationale for blood component transfusion; its benefits in treating or preventing fatigue, organ damage, or ; and its risk which includes mild transfusion reactions, rare risk of blood borne infection, or more serious but rare reactions. I have discussed the alternatives to transfusion, including the risk and consequences of not receiving transfusion. The paietn and/ or Medical POA had an opportunity to ask questions and had agreed to proceed with transfusion of blood components. Shelly Mondragon APRN-HUMAN RESOURCES DESIGNATE Associated attestation - Matias Doss MD - 06/24/2022 9:40 PM EDT Images from the original note were not included. [address], [address] Attestation Patient: Ganga Stinson Date of Admission: 06/22/2022 4:21 PM Hospital Day # 2 Date of Evaluation: 06/24/2022 I personally evaluated and examined the patient [id number] in conjunction with the PA/RN VISITING and agree with the management and dispostition of the patient. Please see the PA/RN VISITING's note for full details. My kohli findings are: SUBJECTIVE: Patient seen for follow up of Hyperkalemia. Patient seen and examined at the bed side , no new acute events overnight and no new complains at this time. He does have some acute blood loss anemia based on labs requiring a transfusion. He denies any GI/ symptoms currently but has been having intermittent blood when wiping at times. Notes from nursing staff and Consults had been reviewed, and the overnight progress had been checked with the nursing staff as well. OBJECTIVE: Vitals: Temp: 98.7 F (37.1 C) BP: (!) 143/64 Resp: 18 Heart Rate: 67 SpO2: 94 % Weight Wt Readings from Last 3 Encounters: 06/24/22 248 lb 11.2 oz (112.8 kg) 06/22/22 250 lb (113.4 kg) 07/14/17 275 lb (124.7 kg) Body mass index is 34.69 kg/m . 24HR INTAKE/OUTPUT: Intake/Output Summary (Last 24 hours) at 06/24/2022 2139 Last data filed at 06/24/2022 1843 Gross per 24 hour Intake 2997.28 ml Output 2675 ml Net 322.28 ml --- Exam: GEN: Awake, alert and oriented x3. EYES: EOMI, pupils equal NECK: Supple. No lymphadenopathy. No carotid bruit CVS: regular rate and rhythm, no audible murmur PULM: CTA, no wheezes, rales or rhonchi, no acute respiratory distress ABD: Bowels sounds normal. Abdomen is soft. No distention. no tenderness to palpation. EXT: no edema bilaterally . No calf tenderness. NEURO: Moves all extremities. Motor and sensory are grossly intact SKIN: No rashes. Multiple skin lesions present. DATA: Complete Blood Count: Recent Labs 06/22/22 1720 06/23/22 0640 06/24/22 0615 06/24/22 1400 WBC 12.8* 9.0 6.6 -- RBC 3.56* 3.22* 2.82* -- HGB 8.3* 7.5* 6.6* 7.8* HCT 27.6* 25.0* 21.7* 25.1* MCV 77.5* 77.6* 77.0* -- RDW 16.2* 16.4* 16.2* -- PLT 338 263 208 -- Recent Labs 06/22/22 1720 06/23/22 0640 06/24/22 0615 SEGS 70* 62 61 NEUTROABS 8.91* 5.55 4.02 LYMPHOPCT 15* 22* 23* LYMPHSABS 1.97 1.94 1.52 MONOPCT 7 8 8 EOSRELPCT 7* 7* 7* BASOPCT 0 0 0 IMMGRAN 1* 1* 1* CMP: Lab Results Component Value Date GLUCOSE 137 (H) 06/24/2022 BUN 26 (H) 06/24/2022 CREATININE 1.11 06/24/2022 NA 140 06/24/2022 K 4.9 06/24/2022 CALCIUM 8.5 (L) 06/24/2022 CL 115 (H) 06/24/2022 CO2 18 (L) 06/24/2022 PROT 6.3 (L) 06/24/2022 LABALBU 2.4 (L) 06/24/2022 BILITOT <0.1 (L) 06/24/2022 ALKPHOS 75 06/24/2022 ALT 9 06/24/2022 AST 11 06/24/2022 UA: Lab Results Component Value Date COLORU Yellow 06/23/2022 SPECGRAV 1.020 06/23/2022 WBCUA 0 TO 2 04/08/2017 RBCUA None 04/08/2017 EPITHUA 2 TO 5 04/08/2017 LEUKOCYTESUR NEGATIVE 06/23/2022 GLUCOSEU NEGATIVE 06/23/2022 KETUA NEGATIVE 06/23/2022 PROTEINU NEGATIVE 06/23/2022 HGBUR NEGATIVE 06/23/2022 CASTUA NOT REPORTED 04/08/2017 CRYSTUA NOT REPORTED 04/08/2017 BACTERIA NOT REPORTED 04/08/2017 YEAST 2+ (A) 04/08/2017 Lactic Acid: Lab Results Component Value Date/Time LACTA 1.2 04/08/2017 03:23 PM LACTA 1.6 12/23/2016 06:20 PM High Sensitivity Troponin: Recent Labs 06/24/22 0000 06/24/22 0615 06/24/22 1143 TROPHS 59* 58* 57* Radiology/Imaging: XR ANKLE RIGHT (MIN 3 VIEWS) Final Result 1. Nonspecific diffuse subcutaneous edema. 2. Periostitis at the lateral aspect of the fibula distally. There was osteomyelitis in this region previously. This could reflect chronic osteomyelitis. Elsewhere, there is no subcutaneous air or evidence of osteomyelitis. ASSESSMENT: Principal Problem: Hyperkalemia Active Problems: Paraplegia (HCC) Open wound of right ankle Pressure injury of right ankle, stage 4 (HCC) Cauda equina syndrome (HCC) Decubitus ulcer of coccygeal region Acute kidney injury superimposed on CKD (HCC) Abnormal EKG Resolved Problems: * No resolved hospital problems. * PLAN: I agree with the plan as outlined in the RN VISITING/PA's note Disposition: Discharge plan is pending, GI, Cardiology, Urology consultations, Transfuse if pRBC <7, wound care to the affected area and monitor electrolytes. Please note that this chart was generated using voice recognition [employer] dictation software. Although every effort was made to ensure the accuracy of this automated tax intern, some errors in tax intern may have occurred. Matias Doss MD 06/24/2022 9:[address] Doss and informed him of critical lab levels. No new orders. Shared Services Manager at bedside at this time to perform second shift assessment. Patient is lying in bed at this time. Vital signs taken and assessment completed at this time. Patient is alert and oriented and has no complaints of pain at this time. Patient denies any further needs at this time. Call light within reach, care ongoing. Wound care completed at this time and patient transferred over to [facility]. Shared Services Manager at bedside at this time to perform initial shift assessment. Patient is lying in bed at this time. Vital signs taken and assessment completed at this time. Patient is alert and oriented and has no complaints of pain at this time. Patient denies any further needs at this time. Call light within reach, care ongoing. Physical Therapy Facility/Department: [facility] MED SURG Daily Treatment Note NAME: Ganga Stinson : 1960 Date of Service: 06/23/2022 Discharge Recommendations: Continue to assess pending progress, Patient would benefit from continued therapy after discharge, Home with Home health PT Patient Diagnosis(es): The primary encounter diagnosis was Acute kidney injury (HCC). A diagnosis of Hyperkalemia was also pertinent to this visit. Assessment Assessment: Pt was cotreated with ABRAHAM, Transfers Mod A x2 from w/c to bed this afternoon. Bed mobility sit -> supine SBA to Min A for advancement of LE's. Education provided to patient on weight shifting every 25 minutes side to side when sitting in w/c to prevent further sores, pt return demonstrated ability in doing so. Seated BLE HS stretch 3x 30 sec holds, pt lacks full knee extension in RLE. Seated BLE exercises PROM in BLE hip abd/add, and LAQ's in R LE. Pt can achieve minimal AROM in LLE LAQ with AAROM for increased ROM. Pt completed 1x 3 w/c push ups, pt demoed some difficulty with this due to armrest location being to far posteriorly. Pt requested and was placed on bed mcbride end of treatment with ability to roll onto R side with use of bed rail, nursing was notified. Activity Tolerance: Patient tolerated treatment well Plan Physcial Therapy Plan General Plan: 2 times a day 7 days a week (1x/day on weekends and holidays) Current Treatment Recommendations: Strengthening;Balance training;Functional mobility training;Transfer training;Endurance training;Home exercise program;Therapeutic activities;Safety education & training;Patient/Caregiver education & training Restrictions Restrictions/Precautions Restrictions/Precautions: General Precautions, Fall Risk, Contact Precautions Position Activity Restriction Other position/activity restrictions: Pt is paraplegic and has no functional movement in oj LEs to assist with transfers. Subjective Subjective Subjective: Pt sitting in w/c upon arrival, states he would like to get to bed when finished with therapy today. Pain: no c/o pain. Orientation Overall Orientation Status: Within Functional Limits Cognition Overall Cognitive Status: WFL Objective Bed Mobility Training Bed Mobility Training: Yes Overall Level of Assistance: Stand-by assistance;Assist X1;Minimum assistance (Min A to lift LEs into bed.) Interventions: Safety awareness training;Weight shifting training/pressure relief Rolling: Stand-by assistance;Assist X1 Supine to Sit: Stand-by assistance;Assist X1 (for safety) Sit to Supine: Stand-by assistance;Assist X1;Minimum assistance Scooting: Stand-by assistance;Contact-guard assistance;Assist X1 Balance Sitting: Impaired Sitting - Static: Supported sitting;Fair (occasional) Sitting - Dynamic: Supported sitting;Fair (occasional) Transfer Training Transfer Training: Yes Overall Level of Assistance: Moderate assistance;Assist X2 Interventions: Verbal cues;Weight shifting training/pressure relief;Safety awareness training Bed to Chair: Setup;Assist X2;Additional time;Moderate assistance;Other (comment) (squat pivot from chair to bed) Gait Training Gait Training: No Neuromuscular Education Neuromuscular Education: No PT Exercises Exercise Treatment: Seated BLE HS stretch 3x 30 sec holds, pt lacks full knee extension in RLE. Seated BLE exercises PROM in BLE hip abd/add, and LAQ's in R LE. Pt can achieve minimal AROM in LLE LAQ with AAROM for increased ROM. Safety Devices Type of Devices: All fall risk precautions in place;Bed alarm in place;Call light within reach;Left in bed;Nurse notified;Gait belt Goals Short Term Goals Time Frame for Short Term Goals: 20 days Short Term Goal 1: Initiate HEP and progress as tolerated for strength, core, and transfers. Short Term Goal 2: Bed mobility will be independent without rails and an appropriate wound relief schedule. Short Term Goal 3: Pt will be able to sit edge of bed and be able to sit unsupported for up to 5 minutes, in order to dress and change position. Short Term Goal 4: Pt will transfer safe and independently from chair to bed for pressure relief and change in position for wound care. Short Term Goal 5: Pt will be able to perform 2 x 10 reps of w/c push-ups and verbalize wound relief. Patient Goals Patient Goals : return home and he is willing in further strengthening and core Education Patient Education Education Given To: Patient Education Provided Comments: Education provided to patient on weight shifting every 25 minutes side to side when sitting in w/c to prevent further sores, pt return demonstrated ability in doing so. Education Method: Verbal Barriers to Learning: None Education Outcome: Verbalized understanding;Demonstrated understanding Therapy Time Individual Concurrent Group Co-treatment Time In 1325 Time Out 1403 Minutes 38 Eloise Lopez PTA Occupational Therapy Facility/Department: [facility] Daily Treatment Note NAME: Ganga Stinson : 1960 Date of Service: 06/23/2022 Discharge Recommendations: Continue to assess pending progress Patient Diagnosis(es): The primary encounter diagnosis was Acute kidney injury (HCC). A diagnosis of Hyperkalemia was also pertinent to this visit. Assessment Activity Tolerance: Patient tolerated treatment well Discharge Recommendations: Continue to assess pending progress Plan Occupational Therapy Plan Times Per Week: 7x/wk Times Per Day: Once a day Current Treatment Recommendations: Strengthening;Safety education & training;Self-Care / ADL Restrictions Restrictions/Precautions Restrictions/Precautions: General Precautions;Fall Risk;Contact Precautions Position Activity Restriction Other position/activity restrictions: Pt is paraplegic and has no functional movement in oj LEs to assist with transfers. Subjective Subjective Subjective: Pt sitting up in bedside chair upon arrival. Pt agreed to participate in therapy session. Pain: pt had no complaints of pain. Orientation Overall Orientation Status: Within Functional Limits Pain: no c/o pain. Cognition Overall Cognitive Status: WFL Objective Vitals Bed Mobility Training Bed Mobility Training: Yes Overall Level of Assistance: Stand-by assistance;Assist X1;Minimum assistance (Min A to lift LEs into bed.) Interventions: Safety awareness training;Weight shifting training/pressure relief Rolling: Stand-by assistance;Assist X1 Supine to Sit: Stand-by assistance;Assist X1 (for safety) Sit to Supine: Stand-by assistance;Assist X1;Minimum assistance Transfer Training Transfer Training: Yes Overall Level of Assistance: Moderate assistance;Assist X2 Interventions: Verbal cues;Weight shifting training/pressure relief;Safety awareness training Bed to Chair: Setup;Assist X2;Additional time;Moderate assistance;Other (comment) (squat pivot from chair to bed) Gait Training Gait Training: No ADL Feeding: Independent Grooming: Stand by assistance UE Bathing: Stand by assistance LE Bathing: Moderate assistance UE Dressing: Stand by assistance LE Dressing: Moderate assistance Toileting: Minimal assistance;Moderate assistance OT Exercises Exercise Treatment: Pt tolerated BUE Ther ex with 2# dumbbell x 7 planes x 1 set to increase UE strength and endurance in order to ease completion of ADL tasks. Pt required RBs as needed secondary to fatigue. Safety Devices Type of Devices: All fall risk precautions in place;Call light within reach;Left in bed;Nurse notified Patient Education Education Given To: Patient Education Provided: Role of Therapy;Plan of Care;Transfer Training Education Method: Demonstration;Verbal Barriers to Learning: None Education Outcome: Verbalized understanding;Demonstrated understanding Goals Short Term Goals Time Frame for Short Term Goals: 20 visits Short Term Goal 1: Patient will tolerate 15 mins of BUE ther ex to increase strength for functional transfers. Short Term Goal 2: Pt. will complete transfer to bedside commode with SBA and G safety to increase (I) with toileting tasks. Short Term Goal 3: Pt. will complete all grooming and UB ADL's with (I) after setup for safe return home. Short Term Goal 4: Pt. will complete toileting and LB ADL's with SBA to increase (I) with ADL routine. Therapy Time Individual Concurrent Group Co-treatment Time In 1325 Time Out 1403 Minutes 38 AIDAN Khoury New foam dressing placed on patients coccyx after having a BM. Physical Therapy Facility/Department: [facility] Physical Therapy Initial Assessment Name: Ganga Stinson : 1960 Date of Service: 06/23/2022 Discharge Recommendations: Continue to assess pending progress, Patient would benefit from continued therapy after discharge, Home with Home health PT Patient Diagnosis(es): The primary encounter diagnosis was Acute kidney injury (HCC). A diagnosis of Hyperkalemia was also pertinent to this visit. Past Medical History: has a past medical history of Acute kidney injury superimposed on CKD (HCC), Cauda equina syndrome (HCC), Depression, Hypertension, MRSA (methicillin resistant staph aureus) culture positive, Paralysis of both lower limbs (HCC), Paraplegia (HCC), Type II or unspecified type diabetes mellitus without mention of complication, not stated as uncontrolled, and Unspecified sleep apnea. 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 Assessment Body Structures, Functions, Activity Limitations Requiring Skilled Therapeutic Intervention: Decreased functional mobility ;Decreased strength;Decreased safe awareness;Decreased balance;Decreased posture Assessment: Pt was referred for general weakness with PMHx of paraplegia. Pt is min +2 for safety with transfers. Pt will benefit from education on skin relief and strengthening. Pt is also generally weak. Progress patient, as tolerated. Treatment Diagnosis: General debility/weakness Therapy Prognosis: Good Decision Making: Medium Complexity Barriers to Learning: none Requires PT Follow-Up: Yes Activity Tolerance Activity Tolerance: Patient tolerated evaluation without incident (required encouragement and education of skin relief) Plan Physcial Therapy Plan General Plan: 2 times a day 7 days a week (with exception of weekends, daily) Current Treatment Recommendations: Strengthening, Balance training, Functional mobility training, Transfer training, Endurance training, Home exercise program, Therapeutic activities, Safety education & training, Patient/Caregiver education & training Safety Devices Type of Devices: Left in chair, Nurse notified, Call light within reach Restrictions Restrictions/Precautions Restrictions/Precautions: General Precautions, Fall Risk, Contact Precautions Position Activity Restriction Other position/activity restrictions: Pt is paraplegic and has no functional movement in oj LEs to assist with transfers. Subjective General Chart Reviewed: Yes Patient assessed for rehabilitation services?: Yes Additional Pertinent Hx: Paraplegic, wounds Diagnosis: Hyperkalemia with general weakness Follows Commands: Within Functional Limits Subjective Subjective: Per patient, he is normally independent. He did find that following his COVID positive, he states he has not felt he's returned yet to his prior level of function. Pt states he doesn't notice pain but understands position changes are good for relieving wounds. Social/Functional History Social/Functional History Lives With: Spouse Type of Home: House Home Layout: One level Home Access: Ramped entrance Bathroom Shower/Tub: Walk-in shower Bathroom Toilet: Handicap height Bathroom Equipment: Shower chair, Grab bars in shower Bathroom Accessibility: Wheelchair accessible Home Equipment: Wheelchair-manual, Wheelchair-electric Has the patient had two or more falls in the past year or any fall with injury in the past year?: No Receives Help From: Family ADL Assistance: Independent Homemaking Assistance: Needs assistance Homemaking Responsibilities: No Ambulation Assistance: Non-ambulatory Transfer Assistance: Independent Active Brand Designer: No Additional Comments: Pt. with hx of paraplegia, uses electric wheelchair around the home but also has manual wheelchair, reports he is normally (I) with all ADL's and transfers. Vision/Hearing Vision Vision: Within Functional Limits Hearing Hearing: Within functional limits Cognition Orientation Overall Orientation Status: Within Functional Limits Cognition Overall Cognitive Status: WFL Objective Heart Rate: 60 Heart Rate Source: Monitor BP: 128/70 BP Location: Right upper arm BP Method: Automatic Patient Position: Semi fowlers MAP (Calculated): 89 Resp: 18 SpO2: 98 % O2 Device: None (Room air) Observation/Palpation Posture: Fair Observation: pt is generally weak to be independent and safe Gross Assessment PROM: Within functional limits (oj LEs but tightness noted, affecting his ability to perform ADLs) Strength: Generally decreased, functional (oj UEs) Bed Mobility Training Bed Mobility Training: Yes Overall Level of Assistance: Stand-by assistance;Other (comment);Assist X1 (definitive need of rails for bed mobility) Interventions: Safety awareness training;Weight shifting training/pressure relief Rolling: Modified independent;Stand-by assistance;Assist X1 (definitive use of rails) Supine to Sit: Stand-by assistance;Assist X1 (for safety) Scooting: Stand-by assistance;Contact-guard assistance;Assist X1 Balance Sitting: Impaired Sitting - Static: Supported sitting;Fair (occasional) Sitting - Dynamic: Supported sitting;Fair (occasional) Transfer Training Transfer Training: Yes Overall Level of Assistance: Minimum assistance;Assist X2 Interventions: Manual cues;Weight shifting training/pressure relief;Safety awareness training (pt will benefit from further strengthening and control.) Bed to Chair: Setup;Contact-guard assistance;Assist X2;Minimum assistance;Additional time OutComes Score AM-PAC Score AM-PAC Inpatient Mobility without Stair Climbing Raw Score : 11 (06/23/22 1409) AM-PAC Inpatient without Stair Climbing T-Scale Score : 35.66 (06/23/22 1409) Mobility Inpatient CMS 0-100% Score: 67.36 (06/23/22 1409) Mobility Inpatient without Stair CMS G-Code Modifier : CL (06/23/221408) Goals Short Term Goals Time Frame for Short Term Goals: 20 days Short Term Goal 1: Initiate HEP and progress as tolerated for strength, core, and transfers. Short Term Goal 2: Bed mobility will be independent without rails and an appropriate wound relief schedule. Short Term Goal 3: Pt will be able to sit edge of bed and be able to sit unsupported for up to 5 minutes, in order to dress and change position. Short Term Goal 4: Pt will transfer safe and independently from chair to bed for pressure relief and change in position for wound care. Short Term Goal 5: Pt will be able to perform 2 x 10 reps of w/c push-ups and verbalize wound relief. Patient Goals Patient Goals : return home and he is willing in further strengthening and core Education Patient Education Education Given To: Patient Education Provided: Role of Therapy;Plan of Care;Precautions Education Provided Comments: skin relief Education Method: Verbal Barriers to Learning: None Education Outcome: Verbalized understanding Therapy Time Individual Concurrent Group Co-treatment Time In 0934 Time Out 0958 Minutes 24 Sarah Hare, PT, DPT Occupational Therapy Facility/Department: [facility] Occupational Therapy Initial Assessment Name: Ganga Stinson : 1960 Date of Service: 06/23/2022 Discharge Recommendations: Continue to assess pending progress Patient Diagnosis(es): The primary encounter diagnosis was Acute kidney injury (HCC). A diagnosis of Hyperkalemia was also pertinent to this visit. Past Medical History: has a past medical history of Acute kidney injury superimposed on CKD (HCC), Cauda equina syndrome (HCC), Depression, Hypertension, MRSA (methicillin resistant staph aureus) culture positive, Paralysis of both lower limbs (HCC), Paraplegia (HCC), Type II or unspecified type diabetes mellitus without mention of complication, not stated as uncontrolled, and Unspecified sleep apnea. 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 Treatment Diagnosis: Generalized Weakness Assessment Performance deficits / Impairments: Decreased functional mobility ;Decreased ADL status;Decreased strength;Decreased endurance;Decreased balance;Decreased high-level IADLs Treatment Diagnosis: Generalized Weakness Prognosis: Good Decision Making: Medium Complexity REQUIRES OT FOLLOW-UP: Yes Activity Tolerance Activity Tolerance: Patient Tolerated treatment well Plan Occupational Therapy Plan Times Per Week: 7x/wk Times Per Day: Once a day Current Treatment Recommendations: Strengthening, Safety education & training, Self-Care / ADL Restrictions Restrictions/Precautions Restrictions/Precautions: General Precautions, Fall Risk, Contact Precautions Subjective General Chart Reviewed: Yes Patient assessed for rehabilitation services?: Yes Additional Pertinent Hx: Pt. paraplegic, has sacral and RLE wounds Diagnosis: Hyperkalemia General Comment Comments: Pt. denies any c/o pain. Social/Functional History Social/Functional History Lives With: Spouse Type of Home: House Home Layout: One level Home Access: Ramped entrance Bathroom Shower/Tub: Walk-in shower Bathroom Toilet: Handicap height Bathroom Equipment: Shower chair, Grab bars in shower Bathroom Accessibility: Wheelchair accessible Home Equipment: Wheelchair-manual, Wheelchair-electric Has the patient had two or more falls in the past year or any fall with injury in the past year?: No Receives Help From: Family ADL Assistance: Independent Homemaking Assistance: Needs assistance Homemaking Responsibilities: No Ambulation Assistance: Non-ambulatory Transfer Assistance: Independent Active Brand Designer: No Additional Comments: Pt. with hx of paraplegia, uses electric wheelchair around the home but also has manual wheelchair, reports he i normally (I) with all ADL's and transfers. Objective Heart Rate: 60 Heart Rate Source: Monitor BP: 128/70 BP Location: Right upper arm BP Method: Automatic Patient Position: Semi fowlers MAP (Calculated): 89 Resp: 18 SpO2: 98 % O2 Device: None (Room air) Safety Devices Type of Devices: Left in chair;Nurse notified;Call light within reach ADL Feeding: Independent Grooming: Stand by assistance UE Bathing: Stand by assistance LE Bathing: Moderate assistance UE Dressing: Stand by assistance LE Dressing: Moderate assistance Toileting: Minimal assistance;Moderate assistance Bed mobility Supine to Sit: Contact guard assistance Transfers Sit Pivot Transfers: Minimal assistance;2 Person assistance Vision Vision: Within Functional Limits Hearing Hearing: Within functional limits Cognition Overall Cognitive Status: WFL Orientation Overall Orientation Status: Within Functional Limits Education Given To: Patient Education Provided: Role of Therapy;Plan of Care;Transfer Training Education Method: Demonstration;Verbal Barriers to Learning: None Education Outcome: Verbalized understanding;Demonstrated understanding LUE AROM (degrees) LUE AROM : WFL RUE AROM (degrees) RUE AROM : WFL Goals Short Term Goals Time Frame for Short Term Goals: 20 visits Short Term Goal 1: Patient will tolerate 15 mins of BUE ther ex to increase strength for functional transfers. Short Term Goal 2: Pt. will complete transfer to bedside commode with SBA and G safety to increase (I) with toileting tasks. Short Term Goal 3: Pt. will complete all grooming and UB ADL's with (I) after setup for safe return home. Short Term Goal 4: Pt. will complete toileting and LB ADL's with SBA to increase (I) with ADL routine. Therapy Time Individual Concurrent Group Co-treatment Time In 941 Time Out 0958 Minutes 16 Rae Zamudio OT Comprehensive Nutrition Assessment Type and Reason for Visit: Initial, Wound Nutrition Recommendations/Plan: Continue current diet. Start 4 oz Glucerna TID with meals (547 mg potassium). Malnutrition Assessment: Malnutrition Status: No malnutrition (06/23/22 0730) Context: Acute Illness Findings of the 6 clinical characteristics of malnutrition: Energy Intake: No significant decrease in energy intake Weight Loss: No significant weight loss Body Fat Loss: No significant body fat loss Muscle Mass Loss: No significant muscle mass loss Fluid Accumulation: Moderate to Severe Extremities (+ 2 pitting BLE) [employer] Supervisor Strength: Not Performed Nutrition Assessment: Altered nutrition related labs r/t impaired nutrient utilization/endocrine dysfunction aeb K+ 5.4 (was 6.3/A1c 12.6 in 2018). Increased nutrient needs r/t acute injury/trauma aeb healing needs from stage III sacrum wound. Renal indices elevated, glucose 119, Cl 110, Hgb 7.5/Hct 25.0. Recommend addition of Glucerna TID and MVI with minerals. TG 992 in 2016. Recommended daily MVI to aid wound healing needs, encouraged protein foods. Pt takes MVI at home. Pt declined K+ list of foods and DM education. Nutrition Related Findings: + 2 pitting BLE Wound Type: Stage III (sacrum) Current Nutrition Intake & Therapies: Average Meal Intake: Unable to assess Average Supplements Intake: None Ordered ADULT DIET; Regular; Low Potassium (Less than 3000 mg/day) Anthropometric Measures: Height: 5' 11 (180.3 cm) [place] Body Weight (IBW): 172 lbs (78 kg) Admission Body Weight: 252 lb 11.2 oz (114.6 kg) Current Body Weight: 252 lb 11.2 oz (114.6 kg), 146.9 % IBW. Weight Source: Bed Scale Current BMI (kg/m2): 35.3 Usual Body Weight: 275 lb (124.7 kg) (2018) % Weight Change (Calculated): -8.1 Weight Adjustment For: No Adjustment BMI Categories: Obese Class 2 (BMI 35.0 -39.9) Estimated Daily Nutrient Needs: Energy Requirements Based On: Kcal/kg Weight Used for Energy Requirements: Current Energy (kcal/day): 0717-6693 (20-23/kg) Weight Used for Protein Requirements: [place] Protein (g/day): 109-133g (1.4-1.7g/kg) Method Used for Fluid Requirements: 1 ml/kcal Fluid (ml/day): 2300 ml Recent Labs 06/22/22 1255 06/22/22 1720 06/23/22 0640 NA 138 137 140 K 6.1* 6.3* 5.4* CL 112* 110* 115* CO2 17* 16* 17* BUN 45* 49* 38* CREATININE 2.00* 1.93* 1.55* GLUCOSE 137* 148* 119* ALT -- 8 11 ALKPHOS -- 101 89 Lab Results Component Value Date/Time LABALBU 2.9 06/23/2022 06:40 AM Lab Results Component Value Date/Time LABA1C 12.6 04/09/2017 11:09 AM No results for input(s): POCGLU in the last 72 hours. Lab Results Component Value Date/Time TRIG 992 04/26/2015 07:00 AM HDL 4 04/26/2015 07:00 AM LDLDIRECT 42 04/25/2015 05:58 AM Nutrition Diagnosis: Altered nutrition-related lab values related to impaired nutrient utilization as evidenced by lab values Increased nutrient needs related to acute injury/trauma as evidenced by wounds Nutrition Interventions: Food and/or Nutrient Delivery: Continue Current Diet, Mineral Supplement, Vitamin Supplement, Start Oral Nutrition Supplement Nutrition Education/Counseling: Education declined Coordination of Nutrition Care: Continue to monitor while inpatient Plan of Care discussed with: Patient Goals: Goals: Meet at least 75% of estimated needs Nutrition Monitoring and Evaluation: Behavioral-Environmental Outcomes: None Identified Food/Nutrient Intake Outcomes: Food and Nutrient Intake, Supplement Intake Physical Signs/Symptoms Outcomes: Biochemical Data, Weight, Skin, Fluid Status or Edema Discharge Planning: Continue current diet, Continue Oral Nutrition Supplement ANYA CHRI[address]ENSEN RD, LD Contact: [phone] Shared Services Manager at bedside for reassessment-see flow sheet for details. Patient remains alert and oriented x4-calm and cooperative. Patient continues to deny pain and discomfort. Incontinence and stewart care provided. Denying any additional needs, call light placed within reach, bed in lowest position and alarm engaged to promote patient safety. Will continue to monitor. Shared Services Manager attempted to place rowe catheter at this time- unable to advance 16 FR catheter. Rn [employer] Counselor notified and will attempt- will continue to monitor. Patient reports no pain or discomfort. Shared Services Manager phoned Dr. Doss at this informing physician of incontinence and sacral wound- order received to insert rowe catheter for skin integrity purposes. See orders for details. Patient admitted to [facility] at this time. Patient is alert and oriented x4- calm and cooperative with assessment. Lung bates are clear bilaterally with no increased work of breath noted. Pressure wound noted on sacrum and RLE. Pillow support placed to off load weight. Bowel sounds active x4- abdomen soft to touch and nontender. Patient incontinent of urine at this time- brief changed and stewart care performed. Denying any additional needs, call light placed in reach, bed in lowest position and alarm engaged to promote patient safety. Will continue to monitor. documented in this encounter [facility] [place] [employer] Work Phone: 06-26-2022 Hospital Discharg e instructions Fabby Felder RN - 06/26/2022 9:20 AM EDT SAME DAY SURGERY DISCHARGE INSTRUCTIONS 1. Do not drive or operate hazardous machinery for 24 hours. 2. Do not make important personal or business decisions for 24 hours. 3. Do not drink alcoholic beverages for 24 hours. 4. Do not smoke tobacco products for 24 hours. 5. Eat light foods (Jell-O, soups, etc....) and drink plenty of fluids (water, Sprite, etc...) up to 8 glasses per day, as you can tolerate. 6. Limit your activities for 24 hours. Do not engage in heavy work until your surgeon gives you permission. 7. Call your surgeon for any questions regarding your surgery. 8. Patient should not be left alone for 12-24 hours following surgical procedure. COLONOSCOPY DISCHARGE INSTRUCTIONS: It's normal to have a feeling of fullness or mild cramping in your abdomen afterwards due to air that is put into your bowel during the procedure. Mild activities such as walking will help you pass the air. You may resume your regular diet. Clips were placed in your colon as part of the polyp removal process; these clips are metal and can interfere with MRI procedures; the clips will pass as part of a bowel movement after several weeks until that time you have been given an implant card stating when and where the clips are located; please present the card to radiology prior to having any MRI procedures. ENDOSCOPY DISCHARGE INSTRUCTIONS: You may have a mild sore throat; this should get better over the next day or two. Sipping warm liquids, a salt-water gargle or throat lozenges may be used. You may have some belching or a feeling of fullness in your abdomen. This is from air that was put into your stomach during the procedure. This should pass in a few hours. May resume your regular diet. You will receive a letter or phone call with your test results in 2 weeks. If you have not received a letter or a phone call in 2 weeks please call the office for your results. CALL THE DOCTOR IF YOU HAVE: Chest pain or trouble breathing. A hoarse voice or trouble swallowing Bleeding, vomiting or spitting up of blood that is more than a few streaks or red or black stools A fever above 101F or if you have chills Pain that is worse or different than any pain you had before the procedure Nausea or vomiting that lasts for more than 2 hours. If symptoms are to severe call 911 or go to the nearest Emergency Room. Fabby Souza RN - 06/26/2022 4:09 PM EDT As tolerated Fabby Souza RN - 06/26/2022 4:09 PM EDT Good nutrition is important when healing from an illness, injury, or surgery. Follow any nutrition recommendations given to you during your hospital stay. If you were given an oral nutrition supplement while in the hospital, continue to take this supplement at home. You can take it with meals, in-between meals, and/or before bedtime. These supplements can be purchased at most local grocery stores, pharmacies, and chain super-stores. If you have any questions about your diet or nutrition, call the hospital and ask for the dietitian. Regular documented in this encounter [employer] Phone: 06-02-2022 Progress note Note Date/Time June 02, 2022 12:14pm [facility] [address] [place] [address] Wound Center Provider Note Signed Patient: Ganga Stinson MR#: [id number] : 1960 Acct:[id number] Age/Sex: 61 / M Copies to: MD Fidel Whitmore MD~ HPI Date of Visit Date of Visit: Date of Service: 06/02/2022 Time of Service: 12:01 Narrative HPI: Patient is being followed for his chronic bilateral ischial, sacral and right foot ulcers. His is doing his dressing changes. Patient has been having some right hip pain and underwent a CT scan in [place] on 03/14/2022. This showed slight deepening of the ulceration along the superior gluteal fold extending to the distal margin of the sacrum. Chronic truncation of the distal sacrum and coccyx which may be related to chronic erosive change or postsurgical change. Large ulcerations overlying the ischial tuberosities with progressive bony changes of the left ischial tuberosity compatible with chronic osteomyelitis. Similar chronic osteomyelitis of the right ischial tuberosity. Prominent and mildly enlarged lymph nodes along the right external iliac chain and right groin presumably reactive. Patient also underwent x-rays of the hip and pelvis which showed degenerative changes with no acute fracture. Patient denies new medical problems. He is on Januvia now for his diabetes. Heis not sure what his last A1c was. All of his ulcers are clean with pink granulation tissue. Subjective Constitutional Constitutional: Denies fever(s) Integumentary/Breasts Skin/Breast: Reports wounds [facility] Medical History (Updated 06/02/22 @ 12:13 by Cathy Brar MD) Acute kidney failure Cauda equina compression Decubitus ulcer of left ischium Decubitus ulcer of right buttock Decubitus ulcer of right ischium Depression Diabetes Encounter for debridement of skin HTN (hypertension) d/t Vancomycin use affected kidneys Leg wound, right Neuropathy Open wound of right heel Paraplegia Sacral decubitus ulcer Sleep apnea CPAP Wound of right ankle Surgical History History of appendectomy Previous back surgery S/P IVC filter Family History Father Autoimmune disorder Mother Heart attack High blood pressure Social History Smoking Status: Never smoker Substance Use Type: None Social History Comments: , adult daughter, 2 grandchildren (ages 11 and 12) Grafts History of Graft History of Graft?: No Exam Physical Exam Vital Signs: Temp Pulse BP O2 Del Method 97.0 F L 76 155/73 H Room Air 06/02/22 09:52 06/02/22 09:52 06/02/22 09:52 06/02/22 09:52 Const General: cooperative and no acute distress Skin Wounds: wounds noted Neuro General: patient alert and patient awake Extrem General: edema Objective Meds/Allergies Home Medications citalopram 40 mg tablet (Celexa) 40 mg PO DAILY Depression 12/07/16 [History Confirmed 01/27/22] insulin glargine 100 unit/mL subcutaneous solution (Lantus U-100 Insulin) 50 units subcut BID DM 12/07/16 [History Confirmed 01/27/22] lisinopril 10 mg tablet 20 mg PO QAM HTN 12/07/16 [History Confirmed 01/27/22] amlodipine 10 mg tablet 10 mg PO QAM HTN 12/08/16 [History Confirmed 01/27/22] atenolol 100 mg tablet 100 mg PO DAILY HTN 11/03/17 [History Confirmed 01/27/22] insulin lispro 100 unit/mL subcutaneous pen (Humalog KwikPen (U-100) Insulin) See Rx Instructions .Route .COMPLEX 05/19/18 [History Confirmed 01/27/22] glipizide 10 mg tablet 10 mg PO BID 06/30/18 [History Confirmed 01/27/22] oxybutynin chloride 10 mg tablet,extended release 24 hr 10 mg PO DAILY 03/23/19 [History Confirmed 01/27/22] fenofibrate nanocrystallized 145 mg tablet 145 mg PO QHS 11/19/20 [History Confirmed 01/27/22] sitagliptin phosphate 100 mg tablet (Januvia) 100 mg PO DAILY 07/29/21 [History Confirmed 01/27/22] hydrocodone 5 mg-acetaminophen 325 mg tablet 1 tab PO Q6H PRN pain 7 days #28 tabs 09/04/21 [Rx Confirmed 01/27/22] Allergies vancomycin Allergy (Severe, Verified 09/04/21 09:28) Shut kidneys down Wound/Ulcer Sacrum: Bed Appearance: Beefy Red, Bone Palpable, [place] and Yellow Percent of Wound Bed Granulated/Red: 90 Percent of Devitalized: 10 Length (cm): 3.5 Width (cm): 1.8 Depth (cm): 2 CM Sq: 6.300 Undermining Position: 360 Undermining Depth: 3 Surrounding Tissue Appearance: [place] Surrounding Tissue Temp: Warm Drainage Amount: Large Drainage Description: Serosanguineous Drainage Odor: No Odor Left Ischium: Bed Appearance: Beefy Red, Bone Palpable, [place] and Yellow Percent of Wound Bed Granulated/Red: 90 Percent of Devitalized: 10 Length (cm): 7 Width (cm): 6 Depth (cm): 5.5 CM Sq: 42.000 Surrounding Tissue Appearance: [place] Surrounding Tissue Temp: Warm Drainage Amount: Large Drainage Description: Serosanguineous Drainage Odor: No Odor Right Ischium: Bed Appearance: Beefy Red, Bone Palpable, [place] and Yellow Percent of Wound Bed Granulated/Red: 90 Percent of Devitalized: 10 Length (cm): 0.7 Width (cm): 1 Depth (cm): 4 CM Sq: 0.700 Surrounding Tissue Appearance: [place] Surrounding Tissue Temp: Warm Drainage Amount: Moderate Drainage Description: Serosanguineous Drainage Odor: No Odor Left Ankle: Bed Appearance: Brown, [place] and Yellow Percent of Wound Bed Granulated/Red: 5 Percent of Devitalized: 95 Length (cm): 3.5 Width (cm): 2.5 Depth (cm): 0.1 CM Sq: 8.750 Surrounding Tissue Appearance: [place] Surrounding Tissue Temp: Warm Drainage Amount: Moderate Drainage Description: Serosanguineous Drainage Odor: No Odor Medial Ankle: Bed Appearance: Brown, [place] and Yellow Percent of Wound Bed Granulated/Red: 50 Percent of Devitalized: 50 Length (cm): 3.5 Width (cm): 4 Depth (cm): 0.1 CM Sq: 14.000 Surrounding Tissue Appearance: [place] Surrounding Tissue Temp: Warm Drainage Amount: Moderate Drainage Description: Serosanguineous Drainage Odor: No Odor Medial Foot: Bed Appearance: Black Dry, Brown, [place] and [place] Percent of Wound Bed Granulated/Red: 5 Percent of Devitalized: 95 Length (cm): 2 Width (cm): 1.2 Depth (cm): 0.1 CM Sq: 2.400 Surrounding Tissue Appearance: [place] Surrounding Tissue Temp: Warm Drainage Amount: Moderate Drainage Description: Serosanguineous Drainage Odor: No Odor Results Height: 5 ft 8 in Weight: 122.47 kg Body Mass Index: 41.0 Assessment/Plan Assessment/Plan (1) Right hip pain: Code(s): M25.551 - Pain in right hip Status: Acute (2) Cauda equina spinal cord injury: Qualifiers: Encounter type: subsequent encounter Qualified Code(s): S34.3XXD - Injury of cauda equina, subsequent encounter Code(s): S34.3XXA - Injury of cauda equina, initial encounter Status: Chronic (3) Stage IV pressure ulcer of sacral region: Code(s): L89.154 - Pressure ulcer of sacral region, stage 4 Status: Acute (4) Pressure injury of left ischium, stage 4: Code(s): L89.324 - Pressure ulcer of left buttock, stage 4 Status: Acute (5) Pressure ulcer of right foot, stage 2: Code(s): L89.892 - Pressure ulcer of other site, stage 2 Status: Acute (6) Diabetes: Qualifiers: Diabetes mellitus type: type 2 Diabetes mellitus bed bug exterminator insulin use:with intermediate use Diabetes mellitus complication status: with skin complications Diabetes mellitus complication detail: with other skin ulcer Qualified Code(s): E11.622 - Type 2 diabetes mellitus with other skin ulcer; Z79.4 - ocean transportation intermediary (current) use of insulin Code(s): E11.9 - Type 2 diabetes mellitus without complications Status: Chronic (7) Pressure injury of right ischium, stage 4: Code(s): L89.314 - Pressure ulcer of right buttock, stage 4 Status: Acute Plan We will continue with the current dressing changes. None of the ulcers require debridement at this time. Patient will continue with his pressure-relief techniques and cushions. Follow-up in 1 month. See Instructions for Orders See Instructions for Orders See Wound Discharge Instructions for Orders: Patient may require serial debridement to remove devitalized tissue and encourage granulation. Dictated By: Cathy Brar MD DD/ 1201 Signed By: <Electronically signed by MD Cathy Brar> 06/02/22 1214 [facility] Work Phone: [phone] 176-186112-06-2022 Progress note Author Cathy Brar [facility] March 03, 2022 12:06pm Note Date/Time March 03, 2022 1 2:06pm [facility] [address] [place] [address] Wound Center Provider Note Signed Patient: Ganga Stinson MR#: [id number] : 1960 Acct:[id number] Age/Sex: 61 / M Copies to: MD Fidel Whitmore MD~ HPI Date of Visit Date of Visit: Date of Service: 03/03/2022 Time of Service: 12:03 Narrative HPI: Patient being followed for his multiple ulcers. He has ulcers of the sacrum, left and right ischium, right lower leg and heel. Most of these are stable or improved a little bit. The right heel wound has healed. Patient still has pain in the right lateral hip. This is underlying the site ofhis previous ulcer. There is skin and bone underlying this area. X-rays of the pelvis show no acute fracture. There are some degenerative changes. Patient states his sugars are doing okay. He is eating well. He is up in the chair but does relieve pressure by rising off of the seat when he is sitting frequently. He is told to do this at least every hour. Subjective Pain Buttock: Pain Description: Intermittent Pain Intensity: 5 Pain Precipitating Factors Comment: sitting Right Foot: Pain Intensity: 0 Wound/Ulcer History When did wound start?: years Assistive Device Used Today: Wheelchair Lives with:: Spouse Appetite Description: Within Normal Limits Who helps w/ dressing change?: Significant Other Why Do You Need Help?: Can't Reach Ulcer and Limited mobility Smoking Status: Never smoker Constitutional Constitutional: Denies fever(s) Integumentary/Breasts Skin/Breast: Reports wounds PMFSH Vaccinated for COVID-19?: Yes Medical History (Updated 01/27/22 @ 12:10 by Cathy Brar MD) Acute kidney failure Cauda equina compression Decubitus ulcer of left ischium Decubitus ulcer of right buttock Decubitus ulcer of right ischium Depression Diabetes Encounter for debridement of skin HTN (hypertension) d/t Vancomycin use affected kidneys Leg wound, right Neuropathy Open wound of right heel Paraplegia Sacral decubitus ulcer Sleep apnea CPAP Wound of right ankle Surgical History History of appendectomy Previous back surgery S/P IVC filter Family History Father Autoimmune disorder Mother Heart attack High blood pressure Social History Smoking Status: Never smoker Substance Use Type: None Social History Comments: , adult daughter, 2 grandchildren (ages 11 and 12) Grafts History of Graft History of Graft?: No Exam Physical Exam Vital Signs: Temp Pulse Resp BP O2 Del Method 97.7 F 68 18 122/56 L Room Air 03/03/22 11:37 03/03/22 11:37 03/03/22 11:37 03/03/22 11:37 03/03/22 11:37 Const General: cooperative and no acute distress Skin Wounds: wounds noted Neuro General: patient alert and patient awake Extrem General: edema Lower/Upper Extremity Exam Vascular Exam-Pulses Right Brachial: Pulse Assessment Method: NIBP Right Dorsalis Pedis: Pulse Assessment Method: Doppler Posterior Tibial: Pulse Assessment Method: Doppler Right Radial: Pulse Assessment Method: Palpation Objective Meds/Allergies Home Medications citalopram 40 mg tablet (Celexa) 40 mg PO DAILY Depression 12/07/16 [History Confirmed 01/27/22] insulin glargine 100 unit/mL subcutaneous solution (Lantus U-100 Insulin) 50 units subcut BID DM 12/07/16 [History Confirmed 01/27/22] lisinopril 10 mg tablet 20 mg PO QAM HTN 12/07/16 [History Confirmed 01/27/22] amlodipine 10 mg tablet 10 mg PO QAM HTN 12/08/16 [History Confirmed 01/27/22] atenolol 100 mg tablet 100 mg PO DAILY HTN 11/03/17 [History Confirmed 01/27/22] insulin lispro 100 unit/mL subcutaneous pen (Humalog KwikPen (U-100) Insulin) See Rx Instructions .Route .COMPLEX 05/19/18 [History Confirmed 01/27/22] glipizide 10 mg tablet 10 mg PO BID 06/30/18 [History Confirmed 01/27/22] oxybutynin chloride 10 mg tablet,extended release 24 hr 10 mg PO DAILY 03/23/19 [History Confirmed 01/27/22] fenofibrate nanocrystallized 145 mg tablet 145 mg PO QHS 11/19/20 [History Confirmed 01/27/22] sitagliptin phosphate 100 mg tablet (Januvia) 100 mg PO DAILY 07/29/21 [History Confirmed 01/27/22] hydrocodone 5 mg-acetaminophen 325 mg tablet 1 tab PO Q6H PRN pain 7 days #28 tabs 09/04/21 [Rx Confirmed 01/27/22] Allergies vancomycin Allergy (Severe, Verified 09/04/21 09:28) Shut kidneys down Wound/Ulcer Sacrum: Bed Appearance: Beefy Red, Bone Palpable and Yellow Percent of Wound Bed Granulated/Red: 50 Percent of Devitalized: 50 Length (cm): 3.0 Width (cm): 1.6 Depth (cm): 3.0 CM Sq: 4.800 Undermining Position: 9-3 Undermining Depth: 5.0 Surrounding Tissue Appearance: Hyperpigmented Surrounding Tissue Temp: Warm Drainage Amount: Large Drainage Description: Serosanguineous Drainage Odor: No Odor Lidocaine Applied Topically: 2% Jelly Right Heel: Bed Appearance: Dried Exudate Percent of Wound Bed Granulated/Red: 0 Percent of Devitalized: 100 Length (cm): 1.0 Width (cm): 0.7 Depth (cm): 0.1 CM Sq: 0.700 Surrounding Tissue Appearance: Hyperpigmented Surrounding Tissue Temp: Warm Drainage Amount: None Drainage Description: Serosanguineous Drainage Odor: No Odor Lidocaine Applied Topically: 2% Jelly Right Ischium: Bed Appearance: Beefy Red, Bone Palpable, [place] and Yellow Percent of Wound Bed Granulated/Red: 50 Percent of Devitalized: 50 Length (cm): 6.0 Width (cm): 5.3 Depth (cm): 5.0 CM Sq: 31.800 Undermining Position: 3-12 Undermining Depth: 3.5 Surrounding Tissue Appearance: Macerated and Rolled Edges Surrounding Tissue Temp: Warm Drainage Amount: Large Drainage Description: Serosanguineous Drainage Odor: No Odor Lidocaine Applied Topically: 2% Jelly Left Ischium: Bed Appearance: Beefy Red, Bone Palpable, Devitalized, [place], Yellow and [place] Percent of Wound Bed Granulated/Red: 50 Percent of Devitalized: 50 Length (cm): 0.7 Width (cm): 0.8 Depth (cm): 4.0 CM Sq: 0.560 Undermining Position: 0 Undermining Depth: 0 Surrounding Tissue Appearance: Macerated and Rolled Edges Surrounding Tissue Temp: Warm Drainage Amount: Moderate Drainage Description: Serosanguineous Drainage Odor: No Odor Lidocaine Applied Topically: 2% Jelly Right Buttock: Bed Appearance: Devitalized, [place] and Yellow Percent of Wound Bed Granulated/Red: 100 Percent of Devitalized: 0 Length (cm): 0 Width (cm): 0 Depth (cm): 0 CM Sq: 0.000 Surrounding Tissue Appearance: Hyperpigmented Surrounding Tissue Temp: Warm Drainage Amount: None Drainage Description: Serosanguineous Drainage Odor: No Odor Lidocaine Applied Topically: 2% Jelly Right Lower Medial Leg: Bed Appearance: [place] and Yellow Percent of Wound Bed Granulated/Red: 50 Percent of Devitalized: 50 Length (cm): 2.0 Width (cm): 3.0 Depth (cm): 0.1 CM Sq: 6.000 Surrounding Tissue Appearance: Hyperpigmented, Callous and Dryness Surrounding Tissue Temp: Warm Drainage Amount: Small Drainage Description: Serosanguineous Drainage Odor: No Odor Lidocaine Applied Topically: 2% Jelly Results Height: 5 ft 11 in Weight: 113.398 kg Body Mass Index: 34.8 Assessment/Plan Assessment/Plan (1) Stage IV pressure ulcer of sacral region: Code(s): L89.154 - Pressure ulcer of sacral region, stage 4 Status: Acute (2) Pressure ulcer of left hip, stage 3: Code(s): L89.223 - Pressure ulcer of left hip, stage 3 Status: Resolved (3) Pressure ulcer of right hip, stage 3: Code(s): L89.213 - Pressure ulcer of right hip, stage 3 Status: Resolved (4) Cauda equina spinal cord injury: Qualifiers: Encounter type: subsequent encounter Qualified Code(s): S34.3XXD - Injury of cauda equina, subsequent encounter Code(s): S34.3XXA - Injury of cauda equina, initial encounter Status: Chronic (5) Unstageable pressure ulcer of right heel: Code(s): L89.610 - Pressure ulcer of right heel, unstageable Status: Acute (6) Diabetes: Qualifiers: Diabetes mellitus type: type 2 Diabetes mellitus bed bug exterminator insulin use:with bed bug exterminator use Diabetes mellitus complication status: with skin complications Diabetes mellitus complication detail: with other skin ulcer Qualified Code(s): E11.622 - Type 2 diabetes mellitus with other skin ulcer; Z79.4 - long-term (current) use of insulin Code(s): E11.9 - Type 2 diabetes mellitus without complications Status: Chronic (7) Right hip pain: Code(s): M25.551 - Pain in right hip Status: Acute Plan For the persistent right hip pain, will check CT scan of the pelvis. Continue with current dressing changes. Continue with pressure-relief techniques. No necrotic tissue seen. No indication for debridement. Bone is palpable but firm underlying the ischial and sacral ulcers. Follow-up after CT scan. See Instructions for Orders See Instructions for Orders See Wound Discharge Instructions for Orders: Dictated By: Cathy Brar MD DD/ 1203 Signed By: <Electronically signed by MD Cathy Brar> 03/03/22 1206 [facility] Work Phone: 1(195) 392-929712-02-2022 NotePROCEDURE: XR HIP RT 2 3V W PELVIS COMPARISON: 10/04/2013 HISTORY: Pain in right hip joint FINDINGS: BONES:No acute fracture or dislocation. Contour deformity along the inferior right and left pubic rami likely represent enthesopathic spurring rather than fracture. Moderate bilateral hip osteoarthropathy with joint space narrowing and marginal osteophyte formation SOFT TISSUES:Negative. No visible soft tissue swelling. EFFUSION:None visible. OTHER: Negative. IMPRESSION: Degenerative changes, no acute fracture Electronically authenticated by: KHADAR MEDINA Date: 2022-02-27 07:17[facility]11-01-2022 Progress note Author Cathy Brar [facility] January 27, 2022 12:11pm Note Date/Time January 27, 2022 1 2:11pm [facility] [address] [place] [address] Wound Center Provider Note Signed Patient: Ganga Stinson MR#: [id number] : 1960 Acct:[id number] Age/Sex: 61 / M Copies to: MD Fidel Whitmore MD~ HPI Date of Visit Date of Visit: Date of Service: 01/27/2022 Time of Service: 12:04 Narrative HPI: Patient being followed for his multiple ulcers. He has ulcers of the sacrum, left and right ischium, right buttock, right lower leg and heel. Most of these are stable or improved a little bit. The right buttock wound has healed. Patient has developed pain in the right lateral hip. This is underlying the site of his previous ulcer. There is skin and bone underlying this area. Patient states his sugars are doing okay. He is eating well. He is up in the chair but does relieve pressure by rising off of the seat when he is sitting frequently. He is told to do this at least every hour. Subjective Pain Buttock: Pain Description: Intermittent Pain Intensity: 5 Pain Precipitating Factors Comment: sitting Right Foot: Pain Intensity: 0 Wound/Ulcer History When did wound start?: years Assistive Device Used Today: Wheelchair Lives with:: Spouse Appetite Description: Within Normal Limits Who helps w/ dressing change?: Significant Other Why Do You Need Help?: Can't Reach Ulcer and Limited mobility Smoking Status: Never smoker Constitutional Constitutional: Denies fever(s) Integumentary/Breasts Skin/Breast: Reports wounds PMFSH Vaccinated for COVID-19?: Yes Medical History (Updated 01/27/22 @ 12:10 by Cathy Brar MD) Acute kidney failure Cauda equina compression Decubitus ulcer of left ischium Decubitus ulcer of right buttock Decubitus ulcer of right ischium Depression Diabetes Encounter for debridement of skin HTN (hypertension) d/t Vancomycin use affected kidneys Leg wound, right Neuropathy Open wound of right heel Paraplegia Sacral decubitus ulcer Sleep apnea CPAP Wound of right ankle Surgical History History of appendectomy Previous back surgery S/P IVC filter Family History Father Autoimmune disorder Mother Heart attack High blood pressure Social History Smoking Status: Never smoker Substance Use Type: None Social History Comments: , adult daughter, 2 grandchildren (ages 11 and 12) Grafts History of Graft History of Graft?: No Exam Physical Exam Vital Signs: Temp Pulse Resp BP O2 Del Method 98.1 F 60 18 130/66 Room Air 01/27/22 11:42 01/27/22 11:42 01/27/22 11:42 01/27/22 11:42 01/27/22 11:42 Const General: cooperative and no acute distress Skin Wounds: wounds noted Neuro General: patient alert and patient awake Extrem General: edema Lower/Upper Extremity Exam Vascular Exam-Pulses Right Brachial: Pulse Assessment Method: NIBP Right Dorsalis Pedis: Pulse Assessment Method: Doppler Posterior Tibial: Pulse Assessment Method: Doppler Objective Meds/Allergies Home Medications citalopram 40 mg tablet (Celexa) 40 mg PO DAILY Depression 12/07/16 [History Confirmed 01/27/22] insulin glargine 100 unit/mL subcutaneous solution (Lantus U-100 Insulin) 50 units subcut BID DM 12/07/16 [History Confirmed 01/27/22] lisinopril 10 mg tablet 20 mg PO QAM HTN 12/07/16 [History Confirmed 01/27/22] amlodipine 10 mg tablet 10 mg PO QAM HTN 12/08/16 [History Confirmed 01/27/22] atenolol 100 mg tablet 100 mg PO DAILY HTN 11/03/17 [History Confirmed 01/27/22] insulin lispro 100 unit/mL subcutaneous pen (Humalog KwikPen (U-100) Insulin) See Rx Instructions .Route .COMPLEX 05/19/18 [History Confirmed 01/27/22] glipizide 10 mg tablet 10 mg PO BID 06/30/18 [History Confirmed 01/27/22] oxybutynin chloride 10 mg tablet,extended release 24 hr 10 mg PO DAILY 03/23/19 [History Confirmed 01/27/22] fenofibrate nanocrystallized 145 mg tablet 145 mg PO QHS 11/19/20 [History Confirmed 01/27/22] sitagliptin 100 mg tablet (Januvia) 100 mg PO DAILY 07/29/21 [History Confirmed 01/27/22] hydrocodone 5 mg-acetaminophen 325 mg tablet 1 tab PO Q6H PRN pain 7 days #28 tabs 09/04/21 [Rx Confirmed 01/27/22] Allergies vancomycin Allergy (Severe, Verified 09/04/21 09:28) Shut kidneys down Wound/Ulcer Sacrum: Bed Appearance: Beefy Red, Bone Palpable and Yellow Percent of Wound Bed Granulated/Red: 50 Percent of Devitalized: 50 Length (cm): 3.0 Width (cm): 1.7 Depth (cm): 3.0 CM Sq: 5.100 Undermining Position: 360 Undermining Depth: 3.5 Surrounding Tissue Appearance: [place] and Rolled [place]ges Surrounding Tissue Temp: Warm Drainage Amount: Large Drainage Description: Serosanguineous Drainage Odor: No Odor Lidocaine Applied Topically: 2% Jelly Right Heel: Bed Appearance: Beefy Red, [place] and Yellow Percent of Wound Bed Granulated/Red: 50 Percent of Devitalized: 50 Length (cm): 1.0 Width (cm): 1.4 Depth (cm): 0.1 CM Sq: 1.400 Surrounding Tissue Appearance: Peeling and Dryness Surrounding Tissue Temp: Warm Drainage Amount: Small Drainage Description: Serosanguineous Drainage Odor: No Odor Lidocaine Applied Topically: 2% Jelly Right Ischium: Bed Appearance: Beefy Red, Bone Palpable, [place] and Yellow Percent of Wound Bed Granulated/Red: 50 Percent of Devitalized: 50 Length (cm): 4.4 Width (cm): 5.0 Depth (cm): 5.0 CM Sq: 22.000 Undermining Position: 12-6:00 Undermining Depth: 1 Surrounding Tissue Appearance: Macerated and Rolled Edges Surrounding Tissue Temp: Warm Drainage Amount: Large Drainage Description: Serosanguineous Drainage Odor: No Odor Lidocaine Applied Topically: 2% Jelly Left Ischium: Bed Appearance: Beefy Red, Bone Palpable, Devitalized, [place], Yellow and Rolled Edges Percent of Wound Bed Granulated/Red: 50 Percent of Devitalized: 50 Length (cm): 1.5 Width (cm): 1.0 Depth (cm): 4.0 CM Sq: 1.500 Undermining Position: 10-3:00 Undermining Depth: 3.5 Surrounding Tissue Appearance: Macerated and Rolled Edges Surrounding Tissue Temp: Warm Drainage Amount: Moderate Drainage Description: Serosanguineous Drainage Odor: No Odor Lidocaine Applied Topically: 2% Jelly Right Buttock: Bed Appearance: Devitalized, [place] and Yellow Percent of Wound Bed Granulated/Red: 100 Percent of Devitalized: 0 Length (cm): 0 Width (cm): 0 Depth (cm): 0 CM Sq: 0.000 Surrounding Tissue Appearance: [place] Surrounding Tissue Temp: Warm Drainage Amount: None Drainage Description: Serosanguineous Drainage Odor: No Odor Lidocaine Applied Topically: 2% Jelly Right Lower Medial Leg: Bed Appearance: [place] and Yellow Percent of Wound Bed Granulated/Red: 50 Percent of Devitalized: 50 Length (cm): 2.3 Width (cm): 3.3 Depth (cm): 0.1 CM Sq: 7.590 Surrounding Tissue Appearance: Hyperpigmented, Callous and Dryness Surrounding Tissue Temp: Warm Drainage Amount: Small Drainage Description: Serosanguineous Drainage Odor: No Odor Lidocaine Applied Topically: 2% Jelly Results Height: 5 ft 11 in Weight: 113.398 kg Body Mass Index: 34.8 Assessment/Plan Assessment/Plan (1) Stage IV pressure ulcer of sacral region: Code(s): L89.154 - Pressure ulcer of sacral region, stage 4 Status: Acute (2) Pressure ulcer of left hip, stage 3: Code(s): L89.223 - Pressure ulcer of left hip, stage 3 Status: Resolved (3) Pressure ulcer of right hip, stage 3: Code(s): L89.213 - Pressure ulcer of right hip, stage 3 Status: Resolved (4) Cauda equina spinal cord injury: Qualifiers: Encounter type: subsequent encounter Qualified Code(s): S34.3XXD - Injury of cauda equina, subsequent encounter Code(s): S34.3XXA - Injury of cauda equina, initial encounter Status: Chronic (5) Unstageable pressure ulcer of right heel: Code(s): L89.610 - Pressure ulcer of right heel, unstageable Status: Acute (6) Diabetes: Qualifiers: Diabetes mellitus type: type 2 Diabetes mellitus intermediate insulin use:with bed bug exterminator use Diabetes mellitus complication status: with skin complications Diabetes mellitus complication detail: with other skin ulcer Qualified Code(s): E11.622 - Type 2 diabetes mellitus with other skin ulcer; Z79.4 - ocean transportation intermediary (current) use of insulin Code(s): E11.9 - Type 2 diabetes mellitus without complications Status: Chronic (7) Right hip pain: Code(s): M25.551 - Pain in right hip Status: Acute Plan For the right hip pain, will check x-rays of the pelvis and the right femur. Continue with current dressing changes. Continue with pressure-relief techniques. No necrotic tissue seen. No indication for debridement. Bone is palpable but firm underlying the ischial and sacral ulcers. Follow-up in 3 to 4 weeks. If there are abnormalities on the x-rays, we can call the patient. See Instructions for Orders See Instructions for Orders See Wound Discharge Instructions for Orders: Dictated By: Cathy Brar MD DD/ 1204 Signed By: <Electronically signed by MD Cathy Brar> 01/27/22 1211 [facility] Work Phone: [phone] Progress note Author Cathy Brar [facility] December 23, 2021 12:32pm Note Date/Time December 23, 2021 12:32pm [facility] [address] [place] [address] Wound Center Provider Note Signed Patient: Ganga Stinson MR#: [id number] : 1960 Acct:[id number] Age/Sex: 61 / M Copies to: MD Fidel Whitmore MD~ HPI Date of Visit Date of Visit: Date of Service: 12/23/2021 Time of Service: : Narrative HPI: Patient being followed for his multiple ulcers. He has ulcers of the sacrum, left and right ischium, right buttock, right lower leg and heel. Most of these are stable or improved a little bit. The right lower lateral leg ulcer is healed. Patient states his sugars are doing okay. He is eating well. He is up in the chair but does relieve pressure by rising off of the seat when he is sitting frequently. He is told to do this at least every hour. Subjective Pain Buttock: Pain Description: Intermittent Pain Intensity: 5 Pain Precipitating Factors Comment: sitting Right Foot: Pain Intensity: 0 Wound/Ulcer History When did wound start?: years Assistive Device Used Today: Wheelchair Lives with:: Spouse Appetite Description: Within Normal Limits Who helps w/ dressing change?: Significant Other Why Do You Need Help?: Can't Reach Ulcer and Limited mobility Smoking Status: Never smoker Constitutional Constitutional: Denies fever(s) Integumentary/Breasts Skin/Breast: Reports wounds PMFSH Vaccinated for COVID-19?: Yes Medical History (Updated 09/04/21 @ 12:50 by Cathy Brar MD) Acute kidney failure Cauda equina compression Decubitus ulcer of left ischium Decubitus ulcer of right buttock Decubitus ulcer of right ischium Depression Diabetes Encounter for debridement of skin HTN (hypertension) d/t Vancomycin use affected kidneys Leg wound, right Neuropathy Open wound of right heel Paraplegia Sacral decubitus ulcer Sleep apnea CPAP Wound of right ankle Surgical History History of appendectomy Previous back surgery S/P IVC filter Family History Father Autoimmune disorder Mother Heart attack High blood pressure Social History Smoking Status: Never smoker Substance Use Type: None Social History Comments: , adult daughter, 2 grandchildren (ages 11 and 12) Grafts History of Graft History of Graft?: Unknown Exam Physical Exam Vital Signs: Temp Pulse Resp BP O2 Del Method 98.1 F 80 18 129/61 Room Air 11/18/21 11:25 12/23/21 12:07 12/23/21 12:07 12/23/21 12:07 12/23/21 12:07 Const General: cooperative and no acute distress Skin Wounds: wounds noted Neuro General: patient alert and patient awake Extrem General: edema Lower/Upper Extremity Exam Vascular Exam-Pulses Right Brachial: Pulse Assessment Method: Diagnostic Monitor Right Dorsalis Pedis: Pulse Assessment Method: Doppler Posterior Tibial: Pulse Assessment Method: Doppler Objective Meds/Allergies Home Medications citalopram 40 mg tablet (Celexa) 40 mg PO DAILY Depression 12/07/16 [History Confirmed 10/21/21] insulin glargine 100 unit/mL subcutaneous solution (Lantus U-100 Insulin) 50 units subcut BID DM 12/07/16 [History Confirmed 10/21/21] lisinopril 10 mg tablet 20 mg PO QAM HTN 12/07/16 [History Confirmed 10/21/21] amlodipine 10 mg tablet 10 mg PO QAM HTN 12/08/16 [History Confirmed 10/21/21] atenolol 100 mg tablet 100 mg PO DAILY HTN 11/03/17 [History Confirmed 10/21/21] insulin lispro 100 unit/mL subcutaneous pen (Humalog KwikPen (U-100) Insulin) See Rx Instructions .Route .COMPLEX 05/19/18 [History Confirmed 10/21/21] glipizide 10 mg tablet 10 mg PO BID 06/30/18 [History Confirmed 10/21/21] oxybutynin chloride 10 mg tablet,extended release 24 hr 10 mg PO DAILY 03/23/19 [History Confirmed 10/21/21] fenofibrate nanocrystallized 145 mg tablet 145 mg PO QHS 11/19/20 [History Confirmed 10/21/21] sitagliptin 100 mg tablet (Januvia) 100 mg PO DAILY 07/29/21 [History Confirmed 10/21/21] hydrocodone 5 mg-acetaminophen 325 mg tablet 1 tab PO Q6H PRN pain 7 days #28 tabs 09/04/21 [Rx Confirmed 10/21/21] Allergies vancomycin Allergy (Severe, Verified 09/04/21 09:28) Shut kidneys down Wound/Ulcer Sacrum: Bed Appearance: Beefy Red, Bone Palpable, Devitalized, [place] and Yellow Percent of Wound Bed Granulated/Red: 95 Percent of Devitalized: 5 Length (cm): 3.2 Width (cm): 2 Depth (cm): 2.5 CM Sq: 6.400 Undermining Position: 10-4:00 Undermining Depth: 5 Surrounding Tissue Appearance: [place] and Macerated Surrounding Tissue Temp: Warm Drainage Amount: Large Drainage Description: Serosanguineous Drainage Odor: No Odor Lidocaine Applied Topically: 2% Jelly Right Heel: Bed Appearance: Beefy Red, Devitalized, Epithelial Tissue or Bridge, [place] and Yellow Percent of Wound Bed Granulated/Red: 90 Percent of Devitalized: 10 Length (cm): 3 Width (cm): 8 Depth (cm): 0.1 CM Sq: 24.000 Surrounding Tissue Appearance: Peeling and Dryness Surrounding Tissue Temp: Warm Drainage Amount: Large Drainage Description: Serosanguineous Drainage Odor: No Odor Lidocaine Applied Topically: 2% Jelly Right Ischium: Bed Appearance: Beefy Red, Bone Palpable, Devitalized, Epithelial Tissue or Bridge, [place] and Yellow Percent of Wound Bed Granulated/Red: 95 Percent of Devitalized: 5 Length (cm): 5 Width (cm): 5 Depth (cm): 5 CM Sq: 25.000 Undermining Position: 12-6:00 Undermining Depth: 1 Surrounding Tissue Appearance: Macerated Surrounding Tissue Temp: Warm Drainage Amount: Large Drainage Description: Serosanguineous Drainage Odor: No Odor Lidocaine Applied Topically: 2% Jelly Left Ischium: Bed Appearance: Beefy Red, Bone Palpable, Devitalized, [place] and Yellow Percent of Wound Bed Granulated/Red: 95 Percent of Devitalized: 5 Length (cm): 1.6 Width (cm): 1.6 Depth (cm): 3.5 CM Sq: 2.560 Undermining Position: 10-3:00 Undermining Depth: 3.5 Surrounding Tissue Appearance: Macerated Surrounding Tissue Temp: Warm Drainage Amount: Moderate Drainage Description: Serosanguineous Drainage Odor: No Odor Lidocaine Applied Topically: 2% Jelly Right Buttock: Bed Appearance: Devitalized, [place] and Yellow Percent of Wound Bed Granulated/Red: 95 Percent of Devitalized: 5 Length (cm): 1.5 Width (cm): 0.5 Depth (cm): 0.1 CM Sq: 0.750 Surrounding Tissue Appearance: [place] and Callous Surrounding Tissue Temp: Warm Drainage Amount: Small Drainage Description: Serosanguineous Drainage Odor: No Odor Lidocaine Applied Topically: 2% Jelly Right Lower Lateral Leg: Bed Appearance: Beefy Red, Devitalized, [place] and Yellow Percent of Wound Bed Granulated/Red: 10 Percent of Devitalized: 90 Length (cm): 0 Width (cm): 0 Depth (cm): 0 CM Sq: 0.000 Surrounding Tissue Appearance: Hyperpigmented Surrounding Tissue Temp: Warm Drainage Amount: None Drainage Description: Serosanguineous Drainage Odor: No Odor Lidocaine Applied Topically: 2% Jelly Right Lower Medial Leg: Bed Appearance: Devitalized, Epithelial Tissue or Bridge, [place] and Yellow Percent of Wound Bed Granulated/Red: 25 Percent of Devitalized: 75 Length (cm): 2 Width (cm): 2.5 Depth (cm): 0.1 CM Sq: 5.000 Surrounding Tissue Appearance: Hyperpigmented, Callous and Dryness Surrounding Tissue Temp: Warm Drainage Amount: Small Drainage Description: Serosanguineous Drainage Odor: No Odor Lidocaine Applied Topically: 2% Jelly Results Height: 5 ft 11 in Weight: 113.398 kg Body Mass Index: 34.8 Assessment/Plan Assessment/Plan (1) Stage IV pressure ulcer of sacral region: Code(s): L89.154 - Pressure ulcer of sacral region, stage 4 Status: Acute (2) Pressure ulcer of left hip, stage 3: Code(s): L89.223 - Pressure ulcer of left hip, stage 3 Status: Resolved (3) Pressure ulcer of right hip, stage 3: Code(s): L89.213 - Pressure ulcer of right hip, stage 3 Status: Resolved (4) Cauda equina spinal cord injury: Qualifiers: Encounter type: subsequent encounter Qualified Code(s): S34.3XXD - Injury of cauda equina, subsequent encounter Code(s): S34.3XXA - Injury of cauda equina, initial encounter Status: Chronic (5) Unstageable pressure ulcer of right heel: Code(s): L89.610 - Pressure ulcer of right heel, unstageable Status: Acute (6) Diabetes: Qualifiers: Diabetes mellitus type: type 2 Diabetes mellitus intermediate insulin use:with bed bug exterminator use Diabetes mellitus complication status: with skin complications Diabetes mellitus complication detail: with other skin ulcer Qualified Code(s): E11.622 - Type 2 diabetes mellitus with other skin ulcer; Z79.4 - long-term (current) use of insulin Code(s): E11.9 - Type 2 diabetes mellitus without complications Status: Chronic Plan Continue with current dressing changes. Continue with pressure-relief techniques. No necrotic tissue seen. No indication for debridement. Bone is palpable but firm underlying the ischial and sacral ulcers. Follow-up in 3 to 4 weeks. See Instructions for Orders See Instructions for Orders See Wound Discharge Instructions for Orders: Dictated By: Cathy Barr MD DD/ 1227 Signed By: <Electronically signed by MD Cathy Brar> 12/23/21 1232 [facility] Work Phone: 1(892) 302-438508-23-2022 Progress note Author Cathy Brar [facility] November 18, 2021 11:55am Note Date/Time November 18, 2021 11 :55am [facility] [address] [place] [address] Wound Center Provider Note Signed Patient: Ganga Stinson MR#: [id number] : 1960 Acct:[id number] Age/Sex: 61 / M Copies to: MD Fidel Whitmore MD~ HPI Date of Visit Date of Visit: Date of Service: 11/18/2021 Time of Service: 11:52 Narrative HPI: Patient has completed his 6-week course of Levaquin for osteomyelitis. Patient has ulcers of the sacrum, right and left ischium, right buttocks, right lower extremity. Patient has dressing changes done at home. All of his ulcers are clean with pink granulation tissue. No exposed bone is noted. Most of the ulcers in general show improved measurements. Subjective Pain Buttock: Pain Description: Constant Pain Intensity: 0 Pain Precipitating Factors Comment: sitting Wound/Ulcer History When did wound start?: years Assistive Device Used Today: Wheelchair Lives with:: Spouse Appetite Description: Within Normal Limits Who helps w/ dressing change?: Significant Other Why Do You Need Help?: Can't Reach Ulcer and Limited mobility Smoking Status: Never smoker Constitutional Constitutional: Denies fever(s) Integumentary/Breasts Skin/Breast: Reports wounds PMFSH Vaccinated for COVID-19?: Yes Medical History (Updated 09/04/21 @ 12:50 by Cathy Brar MD) Acute kidney failure Cauda equina compression Decubitus ulcer of left ischium Decubitus ulcer of right buttock Decubitus ulcer of right ischium Depression Diabetes Encounter for debridement of skin HTN (hypertension) d/t Vancomycin use affected kidneys Leg wound, right Neuropathy Open wound of right heel Paraplegia Sacral decubitus ulcer Sleep apnea CPAP Wound of right ankle Surgical History History of appendectomy Previous back surgery S/P IVC filter Family History Father Autoimmune disorder Mother Heart attack High blood pressure Social History Smoking Status: Never smoker Substance Use Type: None Social History Comments: , adult daughter, 2 grandchildren (ages 11 and 12) Grafts History of Graft History of Graft?: Unknown Exam Physical Exam Vital Signs: Temp Pulse Resp BP O2 Del Method 98.1 F 61 18 112/55 L Room Air 11/18/21 11:25 11/18/21 11:25 11/18/21 11:25 11/18/21 11:25 11/18/21 11:25 Const General: no acute distress Skin Wounds: wounds noted Neuro General: patient alert and patient awake Lower/Upper Extremity Exam Vascular Exam-Pulses Right Brachial: Pulse Assessment Method: NIBP Objective Meds/Allergies Home Medications citalopram 40 mg tablet (Celexa) 40 mg PO DAILY Depression 12/07/16 [History Confirmed 10/21/21] insulin glargine 100 unit/mL subcutaneous solution (Lantus U-100 Insulin) 50 units subcut BID DM 12/07/16 [History Confirmed 10/21/21] lisinopril 10 mg tablet 20 mg PO QAM HTN 12/07/16 [History Confirmed 10/21/21] amlodipine 10 mg tablet 10 mg PO QAM HTN 12/08/16 [History Confirmed 10/21/21] atenolol 100 mg tablet 100 mg PO DAILY HTN 11/03/17 [History Confirmed 10/21/21] insulin lispro 100 unit/mL subcutaneous pen (Humalog KwikPen (U-100) Insulin) See Rx Instructions .Route .COMPLEX 05/19/18 [History Confirmed 10/21/21] glipizide 10 mg tablet 10 mg PO BID 06/30/18 [History Confirmed 10/21/21] oxybutynin chloride 10 mg tablet,extended release 24 hr 10 mg PO DAILY 03/23/19 [History Confirmed 10/21/21] fenofibrate nanocrystallized 145 mg tablet 145 mg PO QHS 11/19/20 [History Confirmed 10/21/21] sitagliptin 100 mg tablet (Januvia) 100 mg PO DAILY 07/29/21 [History Confirmed 10/21/21] hydrocodone 5 mg-acetaminophen 325 mg tablet 1 tab PO Q6H PRN pain 7 days #28 tabs 09/04/21 [Rx Confirmed 10/21/21] Allergies vancomycin Allergy (Severe, Verified 09/04/21 09:28) Shut kidneys down Wound/Ulcer Sacrum: Bed Appearance: Beefy Red, Bone Palpable, Devitalized, [place] and Yellow Percent of Wound Bed Granulated/Red: 75 Percent of Devitalized: 25 Length (cm): 3.5 Width (cm): 2.0 Depth (cm): 2.5 CM Sq: 7.000 Undermining Position: 360 (deepest at 3) Undermining Depth: 3.5 Surrounding Tissue Appearance: Hyperpigmented Surrounding Tissue Temp: Warm Drainage Amount: Large Drainage Description: Serosanguineous Drainage Odor: No Odor Lidocaine Applied Topically: 2% Jelly Right Heel: Bed Appearance: Devitalized, [place] and Yellow Percent of Wound Bed Granulated/Red: 1 Percent of Devitalized: 99 Length (cm): 1.6 Width (cm): 2.3 Depth (cm): 0.1 CM Sq: 3.680 Surrounding Tissue Appearance: Hyperpigmented Surrounding Tissue Temp: Warm Drainage Amount: Large Drainage Description: Serosanguineous Drainage Odor: No Odor Lidocaine Applied Topically: 2% Jelly Right Ischium: Bed Appearance: Beefy Red, Bone Palpable, Devitalized, Epithelial Tissue or Bridge, [place] and Yellow Percent of Wound Bed Granulated/Red: 90 Percent of Devitalized: 10 Length (cm): 4.5 Width (cm): 7.3 Depth (cm): 5.0 CM Sq: 32.850 Undermining Position: 9-12 (deepest at 10) Undermining Depth: 5.0 Surrounding Tissue Appearance: Hyperpigmented Surrounding Tissue Temp: Warm Drainage Amount: Large Drainage Description: Serosanguineous Drainage Odor: No Odor Lidocaine Applied Topically: 2% Jelly Left Ischium: Bed Appearance: Beefy Red, Bone Palpable, Devitalized, [place] and Yellow Percent of Wound Bed Granulated/Red: 90 Percent of Devitalized: 10 Length (cm): 2.0 Width (cm): 2.0 Depth (cm): 3.5 CM Sq: 4.000 Undermining Position: 9-11:00 Undermining Depth: 4.0 Surrounding Tissue Appearance: Hyperpigmented Surrounding Tissue Temp: Warm Drainage Amount: Moderate Drainage Description: Serosanguineous Drainage Odor: No Odor Lidocaine Applied Topically: 2% Jelly Right Buttock: Bed Appearance: Beefy Red, Devitalized, [place] and Yellow Percent of Wound Bed Granulated/Red: 95 Percent of Devitalized: 5 Length (cm): 2.4 Width (cm): 1.0 Depth (cm): 0.1 CM Sq: 2.400 Surrounding Tissue Appearance: Hyperpigmented Surrounding Tissue Temp: Warm Drainage Amount: Moderate Drainage Description: Serosanguineous Drainage Odor: No Odor Lidocaine Applied Topically: 2% Jelly Right Lower Lateral Leg: Bed Appearance: Beefy Red, Devitalized, [place] and Yellow Percent of Wound Bed Granulated/Red: 10 Percent of Devitalized: 90 Length (cm): 1.3 Width (cm): 1.4 Depth (cm): 0.1 CM Sq: 1.820 Surrounding Tissue Appearance: Hyperpigmented Surrounding Tissue Temp: Warm Drainage Amount: Moderate Drainage Description: Serosanguineous Drainage Odor: No Odor Lidocaine Applied Topically: 2% Jelly Right Lower Medial Leg: Bed Appearance: Black Dry, Devitalized, Epithelial Tissue or Bridge, [place] and Yellow Percent of Wound Bed Granulated/Red: 80 Percent of Devitalized: 20 Length (cm): 14.0 Width (cm): 11.0 Depth (cm): 0.1 CM Sq: 154.000 Surrounding Tissue Appearance: Hyperpigmented Surrounding Tissue Temp: Warm Drainage Amount: Moderate Drainage Description: Serosanguineous Drainage Odor: No Odor Lidocaine Applied Topically: 2% Jelly Results Height: 5 ft 11 in Weight: 113.398 kg Body Mass Index: 34.8 Assessment/Plan Assessment/Plan (1) Stage IV pressure ulcer of sacral region: Code(s): L89.154 - Pressure ulcer of sacral region, stage 4 Status: Acute (2) Pressure ulcer of left hip, stage 3: Code(s): L89.223 - Pressure ulcer of left hip, stage 3 Status: Resolved (3) Pressure ulcer of right hip, stage 3: Code(s): L89.213 - Pressure ulcer of right hip, stage 3 Status: Resolved (4) Cauda equina spinal cord injury: Qualifiers: Encounter type: subsequent encounter Qualified Code(s): S34.3XXD - Injury of cauda equina, subsequent encounter Code(s): S34.3XXA - Injury of cauda equina, initial encounter Status: Chronic (5) Unstageable pressure ulcer of right heel: Code(s): L89.610 - Pressure ulcer of right heel, unstageable Status: Acute (6) Diabetes: Qualifiers: Diabetes mellitus type: type 2 Diabetes mellitus bed bug exterminator insulin use:with bed bug exterminator use Diabetes mellitus complication status: with skin complications Diabetes mellitus complication detail: with other skin ulcer Qualified Code(s): E11.622 - Type 2 diabetes mellitus with other skin ulcer; Z79.4 - long-term (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 Continue with pressure-relief techniques. Patient follow-up in about 4 weeks. See Instructions for Orders See Instructions for Orders See Wound Discharge Instructions for Orders: Patient may require serial debridement to remove devitalized tissue and encourage granulation. Dictated By: Cathy Brar MD DD/ 51 Signed By: <Electronically signed by MD Cathy Brar> 11/18/21 4393 [facility] Work Phone: 1(565) 143-478607-26-2022 Progress note Author Cathy Brar [facility] October 21, 2021 11:44am Note Date/Time October 21, 2021 11:4 4am [facility] [address] [place] [address] Wound Center Provider Note Signed Patient: Ganga Stinson MR#: [id number] : 1960 Acct:[id number] Age/Sex: 61 / M Copies to: MD Fidel Whitmore MD~ HPI Date of Visit Date of Visit: Date of Service: 10/21/2021 Time of Service: 11:39 Narrative HPI: Patient is status post debridement of sacral, ischial, heel ulcers. Bone cultures grew Pseudomonas as well as Alcaligenes. These are sensitive to levofloxacin and patient was started on levofloxacin for a 6-week course. Patient has dressing changes done at home. All of his ulcers are clean with pink granulation tissue. Area of exposed bone at the sacral ulcer does show coverage with some granulation tissue. Most of the ulcers in general show improved measurements. Right foot ulcer has healed. Subjective Pain Buttock: Pain Description: Constant Pain Intensity: 4 Pain Precipitating Factors Comment: sitting Right Foot: Pain Intensity: 0 Wound/Ulcer History When did wound start?: years Assistive Device Used Today: Wheelchair Lives with:: Spouse Appetite Description: Within Normal Limits Who helps w/ dressing change?: Significant Other Why Do You Need Help?: Can't Reach Ulcer and Limited mobility Smoking Status: Never smoker Constitutional Constitutional: Denies fever(s) Integumentary/Breasts Skin/Breast: Reports wounds PMFSH Vaccinated for COVID-19?: Yes Medical History (Updated 09/04/21 @ 12:50 by Cathy Brar MD) Acute kidney failure Cauda equina compression Decubitus ulcer of left ischium Decubitus ulcer of right buttock Decubitus ulcer of right ischium Depression Diabetes Encounter for debridement of skin HTN (hypertension) d/t Vancomycin use affected kidneys Leg wound, right Neuropathy Open wound of right heel Paraplegia Sacral decubitus ulcer Sleep apnea CPAP Wound of right ankle Surgical History History of appendectomy Previous back surgery S/P IVC filter Family History Father Autoimmune disorder Mother Heart attack High blood pressure Social History Smoking Status: Never smoker Substance Use Type: None Social History Comments: , adult daughter, 2 grandchildren (ages 11 and 12) Grafts History of Graft History of Graft?: Unknown Exam Physical Exam Vital Signs: Temp Pulse Resp BP O2 Del Method 97.5 F L 69 18 137/57 L Room Air 10/21/21 10:59 10/21/21 10:59 10/21/21 10:59 10/21/21 10:59 10/21/21 10:59 Const General: no acute distress Skin Wounds: wounds noted Neuro General: patient alert and patient awake Lower/Upper Extremity Exam Vascular Exam-Pulses Right Brachial: Pulse Assessment Method: NIBP Objective Meds/Allergies Home Medications citalopram 40 mg tablet (Celexa) 40 mg PO DAILY Depression 12/07/16 [History Confirmed 10/21/21] insulin glargine 100 unit/mL subcutaneous solution (Lantus U-100 Insulin) 50 units subcut BID DM 12/07/16 [History Confirmed 10/21/21] lisinopril 10 mg tablet 20 mg PO QAM HTN 12/07/16 [History Confirmed 10/21/21] amlodipine 10 mg tablet 10 mg PO QAM HTN 12/08/16 [History Confirmed 10/21/21] atenolol 100 mg tablet 100 mg PO DAILY HTN 11/03/17 [History Confirmed 10/21/21] sulfamethoxazole 800 mg-trimethoprim 160 mg tablet (Bactrim DS) 1 tab PO DAILY 04/07/18 [History Confirmed 10/21/21] insulin lispro 100 unit/mL subcutaneous pen (Humalog KwikPen (U-100) Insulin) See Rx Instructions .Route .COMPLEX 05/19/18 [History Confirmed 10/21/21] glipizide 10 mg tablet 10 mg PO BID 06/30/18 [History Confirmed 10/21/21] oxybutynin chloride 10 mg tablet,extended release 24 hr 10 mg PO DAILY 03/23/19 [History Confirmed 10/21/21] fenofibrate nanocrystallized 145 mg tablet 145 mg PO QHS 11/19/20 [History Confirmed 10/21/21] sitagliptin 100 mg tablet (Januvia) 100 mg PO DAILY 07/29/21 [History Confirmed 10/21/21] hydrocodone 5 mg-acetaminophen 325 mg tablet 1 tab PO Q6H PRN pain 7 days #28 tabs 09/04/21 [Rx Confirmed 10/21/21] levofloxacin 750 mg tablet 750 mg PO DAILY 10/16/21 [History Confirmed 10/21/21] Allergies vancomycin Allergy (Severe, Verified 09/04/21 09:28) Shut kidneys down Wound/Ulcer Sacrum: Bed Appearance: Beefy Red, Bone Palpable, Devitalized, [place] and Yellow Percent of Wound Bed Granulated/Red: 75 Percent of Devitalized: 25 Length (cm): 4.2 Width (cm): 3.0 Depth (cm): 3.0 CM Sq: 12.600 Undermining Position: 360 (deepest at 3) Undermining Depth: 3.5 Surrounding Tissue Appearance: Hyperpigmented Surrounding Tissue Temp: Warm Drainage Amount: Large Drainage Description: Serosanguineous Drainage Odor: No Odor Lidocaine Applied Topically: 2% Jelly Right Heel: Bed Appearance: Devitalized, [place] and Yellow Percent of Wound Bed Granulated/Red: 50 Percent of Devitalized: 50 Length (cm): 2.3 Width (cm): 3.2 Depth (cm): 0.1 CM Sq: 7.360 Surrounding Tissue Appearance: Hyperpigmented Surrounding Tissue Temp: Warm Drainage Amount: Large Drainage Description: Serosanguineous Drainage Odor: No Odor Lidocaine Applied Topically: 2% Jelly Right Ischium: Bed Appearance: Beefy Red, Bone Palpable, Devitalized, Epithelial Tissue or Bridge, [place] and Yellow Percent of Wound Bed Granulated/Red: 90 Percent of Devitalized: 10 Length (cm): 6.0 Width (cm): 6.0 Depth (cm): 5.0 CM Sq: 36.000 Undermining Position: 1-6 (deepest at 3) Undermining Depth: 2.0 Surrounding Tissue Appearance: Hyperpigmented Surrounding Tissue Temp: Warm Drainage Amount: Large Drainage Description: Serosanguineous Drainage Odor: No Odor Lidocaine Applied Topically: 2% Jelly Left Ischium: Bed Appearance: Beefy Red, Bone Palpable, Devitalized, [place] and Yellow Percent of Wound Bed Granulated/Red: 90 Percent of Devitalized: 10 Length (cm): 3.0 Width (cm): 1.6 Depth (cm): 4.5 CM Sq: 4.800 Undermining Position: 9-11:00 Undermining Depth: 1.0 Surrounding Tissue Appearance: Hyperpigmented Surrounding Tissue Temp: Warm Drainage Amount: Moderate Drainage Description: Serosanguineous Drainage Odor: No Odor Lidocaine Applied Topically: 2% Jelly Right Buttock: Bed Appearance: Beefy Red, Devitalized, [place] and Yellow Percent of Wound Bed Granulated/Red: 80 Percent of Devitalized: 20 Length (cm): 2.2 Width (cm): 1.1 Depth (cm): 0.1 CM Sq: 2.420 Surrounding Tissue Appearance: Hyperpigmented Surrounding Tissue Temp: Warm Drainage Amount: Moderate Drainage Description: Serosanguineous Drainage Odor: No Odor Lidocaine Applied Topically: 2% Jelly Right Lower Lateral Leg: Bed Appearance: Beefy Red, Devitalized, [place] and Yellow Percent of Wound Bed Granulated/Red: 10 Percent of Devitalized: 90 Length (cm): 1.3 Width (cm): 1.4 Depth (cm): 0.1 CM Sq: 1.820 Surrounding Tissue Appearance: Hyperpigmented Surrounding Tissue Temp: Warm Drainage Amount: Moderate Drainage Description: Serosanguineous Drainage Odor: No Odor Lidocaine Applied Topically: 2% Jelly Right Lower Medial Leg: Bed Appearance: Black Dry, Devitalized, [place] and Yellow Percent of Wound Bed Granulated/Red: 80 Percent of Devitalized: 20 Length (cm): 1.6 Width (cm): 2.5 Depth (cm): 0.1 CM Sq: 4.000 Surrounding Tissue Appearance: Hyperpigmented Surrounding Tissue Temp: Warm Drainage Amount: Moderate Drainage Description: Serosanguineous Drainage Odor: No Odor Lidocaine Applied Topically: 2% Jelly Right Foot: Bed Appearance: Beefy Red, Devitalized, Epithelial Tissue or Bridge, [place] and Yellow Percent of Wound Bed Granulated/Red: 5 Percent of Devitalized: 95 Length (cm): 0 Width (cm): 0 Depth (cm): 0 CM Sq: 0.000 Surrounding Tissue Appearance: Ethnic/Norm Surrounding Tissue Temp: Warm Drainage Amount: None Drainage Description: Serosanguineous Drainage Odor: No Odor Results Height: 5 ft 11 in Weight: 113.398 kg Body Mass Index: 34.8 Assessment/Plan Assessment/Plan (1) Stage IV pressure ulcer of sacral region: Code(s): L89.154 - Pressure ulcer of sacral region, stage 4 Status: Acute (2) Pressure ulcer of left hip, stage 3: Code(s): L89.223 - Pressure ulcer of left hip, stage 3 Status: Resolved (3) Pressure ulcer of right hip, stage 3: Code(s): L89.213 - Pressure ulcer of right hip, stage 3 Status: Resolved (4) Cauda equina spinal cord injury: Qualifiers: Encounter type: subsequent encounter Qualified Code(s): S34.3XXD - Injury of cauda equina, subsequent encounter Code(s): S34.3XXA - Injury of cauda equina, initial encounter Status: Chronic (5) Unstageable pressure ulcer of right heel: Code(s): L89.610 - Pressure ulcer of right heel, unstageable Status: Acute (6) Diabetes: Qualifiers: Diabetes mellitus type: type 2 Diabetes mellitus bed bug exterminator insulin use:with intermediate use Diabetes mellitus complication status: with skin complications Diabetes mellitus complication detail: with other skin ulcer Qualified Code(s): E11.622 - Type 2 diabetes mellitus with other skin ulcer; Z79.4 - ocean transportation intermediary (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 Continue with pressure-relief techniques. Complete 6-week course of Levaquin. Patient follow-up in about 4 weeks. See Instructions for Orders See Instructions for Orders See Wound Discharge Instructions for Orders: Patient may require serial debridement to remove devitalized tissue and encourage granulation. Dictated By: Cathy Brar MD DD/ [id number] Signed By: <Electronically signed by MD Cathy Brar> 10/21/21 1144 [facility] Work Phone: 1(764) 526-329306-21-2022 Progress note Author Cathy Brar [facility] September 16, 2021 11:55am Note Date/Time September 16, 2021 11:5 1am [facility] [address] [place] [address] Wound Center Provider Note Signed Patient: Ganga Stinson MR#: [id number] : 1960 Acct:[id number] Age/Sex: 61 / M Copies to: MD Fidel Whitmore MD~ HPI Date of Visit Date of Visit: Date of Service: 09/16/2021 Time of Service: 11:48 Narrative HPI: Patient is status post debridement of sacral, ischial, heel ulcers. Bone cultures grew Pseudomonas as well as Alcaligenes. These are sensitive to levofloxacin and patient was started on levofloxacin for a 6-week course. Patient has dressing changes done at home. All of his ulcers are clean with pink granulation tissue. Area of exposed bone at the sacral ulcer does show coverage with some granulation tissue. Subjective Pain Buttock: Pain Description: Constant Pain Intensity: 4 Pain Precipitating Factors Comment: sitting Right Foot: Pain Intensity: 0 Wound/Ulcer History When did wound start?: years Assistive Device Used Today: Wheelchair Lives with:: Spouse Appetite Description: Within Normal Limits Who helps w/ dressing change?: Significant Other Why Do You Need Help?: Can't Reach Ulcer and Limited mobility Smoking Status: Never smoker Constitutional Constitutional: Denies fever(s) Integumentary/Breasts Skin/Breast: Reports wounds PMFSH Vaccinated for COVID-19?: Yes Medical History (Updated 09/04/21 @ 12:50 by Cathy Brar MD) Acute kidney failure Cauda equina compression Decubitus ulcer of left ischium Decubitus ulcer of right buttock Decubitus ulcer of right ischium Depression Diabetes Encounter for debridement of skin HTN (hypertension) d/t Vancomycin use affected kidneys Leg wound, right Neuropathy Open wound of right heel Paraplegia Sacral decubitus ulcer Sleep apnea CPAP Wound of right ankle Surgical History History of appendectomy Previous back surgery S/P IVC filter Family History Father Autoimmune disorder Mother Heart attack High blood pressure Social History Smoking Status: Never smoker Substance Use Type: None Social History Comments: , adult daughter, 2 grandchildren (ages 11 and 12) Grafts History of Graft History of Graft?: Unknown Exam Physical Exam Vital Signs: Temp Pulse Resp BP 97.7 F 69 18 133/60 09/16/21 10:57 09/16/21 10:57 09/16/21 10:57 09/16/21 10:57 Const General: no acute distress Skin Wounds: wounds noted Neuro General: patient alert and patient awake Lower/Upper Extremity Exam Vascular Exam-Pulses Right Brachial: Pulse Assessment Method: Diagnostic Monitor Objective Meds/Allergies Home Medications citalopram 40 mg tablet (Celexa) 40 mg PO DAILY 12/07/16 [History Confirmed 09/16/21] insulin glargine 100 unit/mL subcutaneous solution (Lantus U-100 Insulin) 50 units SUB-Q BID 12/07/16 [History Confirmed 09/16/21] lisinopril 10 mg tablet 20 mg PO QAM 12/07/16 [History Confirmed 09/16/21] amlodipine 10 mg tablet 10 mg PO QAM 12/08/16 [History Confirmed 09/16/21] atenolol 100 mg tablet 100 mg PO DAILY 11/03/17 [History Confirmed 09/16/21] sulfamethoxazole 800 mg-trimethoprim 160 mg tablet (Bactrim DS) 1 tab PO DAILY 04/07/18 [History Confirmed 09/16/21] insulin lispro 100 unit/mL subcutaneous pen (Humalog KwikPen (U-100) Insulin) See Rx Instructions .ROUTE .COMPLEX 05/19/18 [History Confirmed 09/16/21] glipizide 10 mg tablet 10 mg PO BID 06/30/18 [History Confirmed 09/16/21] oxybutynin chloride 10 mg tablet,extended release 24 hr 10 mg PO DAILY 03/23/19 [History Confirmed 09/16/21] fenofibrate nanocrystallized 145 mg tablet 145 mg PO QHS 11/19/20 [History Confirmed 09/16/21] sitagliptin 100 mg tablet (Januvia) 100 mg PO DAILY 07/29/21 [History Confirmed 09/16/21] hydrocodone 5 mg-acetaminophen 325 mg tablet 1 tab PO Q6H PRN 7 Days #28 tab 09/04/21 [Rx Confirmed 09/16/21] Allergies vancomycin Allergy (Severe, Verified 09/04/21 09:28) Shut kidneys down Wound/Ulcer Sacrum: Bed Appearance: Bone Palpable, Devitalized, [place] and Yellow Percent of Wound Bed Granulated/Red: 75 Percent of Devitalized: 25 Length (cm): 5.4 Width (cm): 3 Depth (cm): 4.5 CM Sq: 16.200 Undermining Position: 10-3:00, deepest @ 3:00 Undermining Depth: 3.9 Surrounding Tissue Appearance: Hyperpigmented Surrounding Tissue Temp: Warm Drainage Amount: Large Drainage Description: Serosanguineous Drainage Odor: No Odor Lidocaine Applied Topically: 2% Jelly Right Heel: Bed Appearance: Black Moist, Brown, Devitalized, [place] and Yellow Percent of Wound Bed Granulated/Red: 95 Percent of Devitalized: 5 Length (cm): 3.4 Width (cm): 5.1 Depth (cm): 0.1 CM Sq: 17.340 Surrounding Tissue Appearance: Hyperpigmented Surrounding Tissue Temp: Warm Drainage Amount: Large Drainage Description: Serosanguineous Drainage Odor: No Odor Lidocaine Applied Topically: 2% Jelly Right Ischium: Bed Appearance: Beefy Red, Devitalized, Epithelial Tissue or Bridge, [place] and Yellow Percent of Wound Bed Granulated/Red: 90 Percent of Devitalized: 10 Length (cm): 5.1 Width (cm): 5.5 Depth (cm): 4 CM Sq: 28.050 Undermining Position: 1-3:00 Undermining Depth: 1.5 Surrounding Tissue Appearance: Hyperpigmented Surrounding Tissue Temp: Warm Drainage Amount: Large Drainage Description: Serosanguineous Drainage Odor: No Odor Lidocaine Applied Topically: 2% Jelly Left Ischium: Bed Appearance: Beefy Red, Bone Palpable, Devitalized, [place] and Yellow Percent of Wound Bed Granulated/Red: 90 Percent of Devitalized: 10 Length (cm): 3.9 Width (cm): 1.8 Depth (cm): 5 CM Sq: 7.020 Undermining Position: 9-11:00 Undermining Depth: 2.2 Surrounding Tissue Appearance: Hyperpigmented Surrounding Tissue Temp: Warm Drainage Amount: Moderate Drainage Description: Serosanguineous Drainage Odor: No Odor Lidocaine Applied Topically: 2% Jelly Right Buttock: Bed Appearance: Beefy Red, Devitalized, [place] and Yellow Percent of Wound Bed Granulated/Red: 99 Percent of Devitalized: 1 Length (cm): 2.3 Width (cm): 0.9 Depth (cm): 0.2 CM Sq: 2.070 Surrounding Tissue Appearance: Hyperpigmented Surrounding Tissue Temp: Warm Drainage Amount: Moderate Drainage Description: Serosanguineous Drainage Odor: No Odor Lidocaine Applied Topically: 2% Jelly Right Lower Lateral Leg: Bed Appearance: Beefy Red, Devitalized, [place] and Yellow Percent of Wound Bed Granulated/Red: 20 Percent of Devitalized: 80 Length (cm): 3.8 Width (cm): 2.3 Depth (cm): 0.1 CM Sq: 8.740 Surrounding Tissue Appearance: Hyperpigmented Surrounding Tissue Temp: Warm Drainage Amount: Moderate Drainage Description: Serosanguineous Drainage Odor: No Odor Lidocaine Applied Topically: 2% Jelly Right Lower Medial Leg: Bed Appearance: Black Dry, Devitalized, [place] and Yellow Percent of Wound Bed Granulated/Red: 75 Percent of Devitalized: 25 Length (cm): 2.5 Width (cm): 2.7 Depth (cm): 0.2 CM Sq: 6.750 Surrounding Tissue Appearance: Hyperpigmented Surrounding Tissue Temp: Warm Drainage Amount: Moderate Drainage Description: Serosanguineous Drainage Odor: No Odor Lidocaine Applied Topically: 2% Jelly Right Foot: Bed Appearance: Beefy Red, Devitalized, Epithelial Tissue or Bridge, [place] and Yellow Percent of Wound Bed Granulated/Red: 5 Percent of Devitalized: 95 Length (cm): 5.7 Width (cm): 1.5 Depth (cm): 0.1 CM Sq: 8.550 Surrounding Tissue Appearance: Hyperpigmented Surrounding Tissue Temp: Warm Drainage Amount: Moderate Drainage Description: Serosanguineous Drainage Odor: No Odor Results Height: 5 ft 11 in Weight: 113.398 kg Body Mass Index: 34.8 Assessment/Plan Assessment/Plan (1) Stage IV pressure ulcer of sacral region: Code(s): L89.154 - Pressure ulcer of sacral region, stage 4 Status: Acute (2) Pressure ulcer of left hip, stage 3: Code(s): L89.223 - Pressure ulcer of left hip, stage 3 Status: Resolved (3) Pressure ulcer of right hip, stage 3: Code(s): L89.213 - Pressure ulcer of right hip, stage 3 Status: Resolved (4) Cauda equina spinal cord injury: Qualifiers: Encounter type: subsequent encounter Qualified Code(s): S34.3XXD - Injury of cauda equina, subsequent encounter Code(s): S34.3XXA - Injury of cauda equina, initial encounter Status: Chronic (5) Unstageable pressure ulcer of right heel: Code(s): L89.610 - Pressure ulcer of right heel, unstageable Status: Acute (6) Diabetes: Qualifiers: Diabetes mellitus type: type 2 Diabetes mellitus 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 Continue 6-week course of Levaquin. Patient follow-up in about 4 weeks. See Instructions for Orders See Instructions for Orders See Wound Discharge Instructions for Orders: Patient may require serial debridement to remove devitalized tissue and encourage granulation. Dictated By: Cathy Brar MD DD/ [id number] Signed By: <Electronically signed by MD Cathy Brar> 09/16/21 1155 [facility] Work Phone: [phone]) 445-574005-03-2022 Progress note Author Cathy Brar [facility] July 29, 2021 12:33pm Note Date/Time July 29, 2021 12:33p [facility] [address] [place] [address] Wound Center Provider Note Signed Patient: Ganga Stinson MR#: [id number] : 1960 Acct:[id number] Age/Sex: 61 / M Copies to: MD Fidel Whitmore MD~ HPI Date of Visit Date of Visit: Date of Service: 07/29/2021 Time of Service: 11:09 Narrative HPI: Patient was last seen by me in October 2020. He was scheduled to have debridement performed for his multiple ulcers. However, this did not happen. Patient states around December he was in the hospital for about a week with COVID. Patient still has multiple ulcers including sacral, bilateral ischial, right heel and right leg. There is exposed bone at the sacral ulcer. Subjective Pain Buttock: Pain Description: Constant and Stabbing Pain Intensity: 6 Right Foot: Pain Intensity: 0 Wound/Ulcer History When did wound start?: years Assistive Device Used Today: Wheelchair Lives with:: Spouse Appetite Description: Within Normal Limits Who helps w/ dressing change?: Significant Other Why Do You Need Help?: Can't Reach Ulcer and Limited mobility Smoking Status: Never smoker Constitutional Constitutional: Denies fever(s) Integumentary/Breasts Skin/Breast: Reports wounds PMFSH Vaccinated for COVID-19?: Yes Medical History (Updated 07/29/21 @ 12:32 by Cathy Brar MD) Acute kidney failure Cauda equina compression Decubitus ulcer of left ischium Decubitus ulcer of right buttock Decubitus ulcer of right ischium Depression Diabetes Encounter for debridement of skin HTN (hypertension) d/t Vancomycin use affected kidneys Leg wound, right Neuropathy Open wound of right heel Paraplegia Sacral decubitus ulcer Sleep apnea CPAP Wound of right ankle Surgical History History of appendectomy Previous back surgery S/P IVC filter Family History Father Autoimmune disorder Mother Heart attack High blood pressure Social History Smoking Status: Never smoker Substance Use Type: None Social History Comments: , adult daughter, 2 grandchildren (ages 11 and 12) Grafts History of Graft History of Graft?: No Exam Physical Exam Vital Signs: Temp Pulse Resp BP 97.3 F L 67 18 122/70 07/29/21 09:54 07/29/21 09:54 07/29/21 09:54 07/29/21 09:54 Const General: no acute distress Skin Wounds: wounds noted Neuro General: patient alert and patient awake Lower/Upper Extremity Exam Vascular Exam-Pulses Right Brachial: Pulse Assessment Method: NIBP Objective Meds/Allergies Home Medications citalopram 40 mg tablet (Celexa) 40 mg PO DAILY 12/07/16 [History Confirmed 07/29/21] insulin glargine 100 unit/mL subcutaneous solution (Lantus U-100 Insulin) 50 units SUB-Q BID 12/07/16 [History Confirmed 07/29/21] lisinopril 10 mg tablet 20 mg PO QAM 12/07/16 [History Confirmed 07/29/21] amlodipine 10 mg tablet 10 mg PO QAM 12/08/16 [History Confirmed 07/29/21] atenolol 100 mg tablet 100 mg PO DAILY 11/03/17 [History Confirmed 07/29/21] sulfamethoxazole 800 mg-trimethoprim 160 mg tablet (Bactrim DS) 1 tab PO DAILY 04/07/18 [History Confirmed 07/29/21] insulin lispro 100 unit/mL subcutaneous pen (Humalog KwikPen (U-100) Insulin) See Rx Instructions .ROUTE .COMPLEX 05/19/18 [History Confirmed 07/29/21] glipizide 10 mg tablet 10 mg PO BID 06/30/18 [History Confirmed 07/29/21] oxybutynin chloride 10 mg tablet,extended release 24 hr 10 mg PO DAILY 03/23/19 [History Confirmed 07/29/21] fenofibrate nanocrystallized 145 mg tablet 145 mg PO QHS 11/19/20 [History Confirmed 07/29/21] sitagliptin 100 mg tablet (Januvia) 100 mg PO DAILY 07/29/21 [History Confirmed 07/29/21] Allergies vancomycin Allergy (Severe, Verified 07/29/21 09:57) Shut kidneys down Wound/Ulcer Sacrum: Bed Appearance: Bone Palpable, [place] and Yellow Percent of Wound Bed Granulated/Red: 50 Percent of Devitalized: 50 Length (cm): 2.6 Width (cm): 2.0 Depth (cm): 3.0 CM Sq: 5.200 Undermining Position: 9-4 (deepest at 4) Undermining Depth: 5.4 Surrounding Tissue Appearance: Hyperpigmented Surrounding Tissue Temp: Warm Drainage Amount: Large Drainage Description: Serosanguineous Drainage Odor: No Odor Lidocaine Applied Topically: 2% Jelly Right Heel: Bed Appearance: Black Moist, Brown, [place] and Yellow Percent of Wound Bed Granulated/Red: 15 Percent of Devitalized: 85 Length (cm): 6.0 Width (cm): 9.0 Depth (cm): 0.5 CM Sq: 54.000 Surrounding Tissue Appearance: Hyperpigmented Surrounding Tissue Temp: Warm Drainage Amount: Large Drainage Description: Serosanguineous Drainage Odor: No Odor Lidocaine Applied Topically: 2% Jelly Right Ischium: Bed Appearance: Beefy Red, Epithelial Tissue or Bridge, [place] and Yellow Percent of Wound Bed Granulated/Red: 50 Percent of Devitalized: 50 Length (cm): 9.3 Width (cm): 7.9 Depth (cm): 5.2 CM Sq: 73.470 Undermining Position: 360 (deepest at 7) Undermining Depth: 2.3 Surrounding Tissue Appearance: Hyperpigmented Surrounding Tissue Temp: Warm Drainage Amount: Large Drainage Description: Serosanguineous Drainage Odor: No Odor Lidocaine Applied Topically: 2% Jelly Left Ischium: Bed Appearance: [place] and Yellow Percent of Wound Bed Granulated/Red: 50 Percent of Devitalized: 50 Length (cm): 1.7 Width (cm): 1.5 Depth (cm): 3.5 CM Sq: 2.550 Undermining Position: 3-8 Undermining Depth: 4.5 Surrounding Tissue Appearance: Hyperpigmented Surrounding Tissue Temp: Warm Drainage Amount: Moderate Drainage Description: Serosanguineous Drainage Odor: No Odor Lidocaine Applied Topically: 2% Jelly Right Buttock: Bed Appearance: Beefy Red, [place] and Yellow Percent of Wound Bed Granulated/Red: 75 Percent of Devitalized: 25 Length (cm): 6.6 Width (cm): 2.0 Depth (cm): 0.1 CM Sq: 13.200 Surrounding Tissue Appearance: Hyperpigmented Surrounding Tissue Temp: Warm Drainage Amount: Moderate Drainage Description: Serosanguineous Drainage Odor: No Odor Lidocaine Applied Topically: 2% Jelly Right Lower Lateral Leg: Bed Appearance: Beefy Red, [place] and Yellow Percent of Wound Bed Granulated/Red: 50 Percent of Devitalized: 50 Length (cm): 1.8 Width (cm): 1.5 Depth (cm): 0.1 CM Sq: 2.700 Surrounding Tissue Appearance: Hyperpigmented Surrounding Tissue Temp: Warm Drainage Amount: Moderate Drainage Description: Serosanguineous Drainage Odor: No Odor Lidocaine Applied Topically: 2% Jelly Right Lower Medial Leg: Bed Appearance: Black Dry, [place] and Yellow Percent of Wound Bed Granulated/Red: 10 Percent of Devitalized: 90 Length (cm): 7.8 Width (cm): 3.6 Depth (cm): 0.1 CM Sq: 28.080 Surrounding Tissue Appearance: Hyperpigmented Surrounding Tissue Temp: Warm Drainage Amount: Moderate Drainage Description: Serosanguineous Drainage Odor: No Odor Lidocaine Applied Topically: 2% Jelly Results Height: 5 ft 11 in Weight: 113.398 kg Body Mass Index: 34.8 Assessment/Plan Assessment/Plan (1) Stage IV pressure ulcer of sacral region: Code(s): L89.154 - Pressure ulcer of sacral region, stage 4 Status: Acute (2) Pressure ulcer of left hip, stage 3: Code(s): L89.223 - Pressure ulcer of left hip, stage 3 Status: Resolved (3) Pressure ulcer of right hip, stage 3: Code(s): L89.213 - Pressure ulcer of right hip, stage 3 Status: Resolved (4) Cauda equina spinal cord injury: Qualifiers: Encounter type: subsequent encounter Qualified Code(s): S34.3XXD - Injury of cauda equina, subsequent encounter Code(s): S34.3XXA - Injury of cauda equina, initial encounter Status: Chronic (5) Unstageable pressure ulcer of right heel: Code(s): L89.610 - Pressure ulcer of right heel, unstageable Status: Acute (6) Diabetes: Qualifiers: Diabetes mellitus type: type 2 Diabetes mellitus bed bug exterminator insulin use:with bed bug exterminator use Diabetes mellitus complication status: with skin complications Diabetes mellitus complication detail: with other skin ulcer Qualified Code(s): E11.622 - Type 2 diabetes mellitus with other skin ulcer; Z79.4 - long-term (current) use of insulin Code(s): E11.9 - Type 2 diabetes mellitus without complications Status: Chronic Plan Plan will be to debride the sacral, ischial and possibly right heel ulcers. Procedure, benefits, risks include risk of bleeding, infection, wound healing problems were discussed. Cultures of tissue and bone can be sent. Patient apparently did receive cardiac clearance when the surgery was scheduled last year. We will attempt to obtain that note from hot die press operator in [place]. See Instructions for Orders See Instructions for Orders See Wound Discharge Instructions for Orders: Patient may require serial debridement to remove devitalized tissue and encourage granulation. Dictated By: Cathy Brar MD DD/ [id number] Signed By: <Electronically signed by MD Cathy Brar> 07/29/21 1233 [facility] Work Phone: Evaluation + Plan note No data available for this section [facility] evaluation note* Diagnosis Onset Date Resolution Status Right hip pain acute Stage IV pressure ulcer of sacral region acute Unstageable pressure ulcer of right heel acute Cauda equina spinal cord injury chronic Diabetes chronic Pressure ulcer of left hip, stage 3 resolved Pressure ulcer of right hip, stage 3 resolved [facility] Work Phone: Evaluation note* Diagnosis Neurogenic bladder Neurogenic bladder, NOS documented in this encounter [employer] Work Phone: evaldgeboj note* Diagnosis Neurogenic bladder Neurogenic bladder, NOS documented in this encounter [employer] Phone: evalvustse note* Diagnosis Hyperkalemia- Primary Hyperpotassemia Acute kidney injury (HCC) Acute kidney failure, unspecified Hyperkalemia Hyperpotassemia Iron deficiency anemia, unspecified iron deficiency anemia type Acute kidney injury superimposed on CKD (HCC) Paraplegia (HCC) Paraplegia Cauda equina syndrome (HCC) Cauda equina syndrome without mention of neurogenic bladder Decubitus ulcer of coccygeal region Pressure ulcer, lower back Open wound of right ankle Open wound of knee, leg (except thigh), and ankle, without mention of complication Abnormal EKG Nonspecific abnormal electrocardiogram (ECG) (EKG) Pressure injury of right ankle, stage 4 (HCC) Acute kidney injury (HCC) Acute kidney failure, unspecified Iron deficiency anemia Iron deficiency anemia, unspecified Cauda equina syndrome (HCC) Cauda equina syndrome without mention of neurogenic bladder documented in this encounter [employer] Phone: evaluation note* Diagnosis Acute kidney injury (HCC) Acute kidney failure, unspecified Iron deficiency anemia, unspecified iron deficiency anemia type documented in this encounter [facility] Work Phone: evaluation note* Diagnosis Onset Date Resolution Status Pressure injury of left ischium, stage 4 acute Pressure injury of right ischium, stage 4 acute Pressure ulcer of right foot, stage 2 acute Right hip pain acute 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 Diabetes [facility] Work Phone: Evaluation note* Diagnosis Cauda equina syndrome (HCC) Cauda equina syndrome without mention of neurogenic bladder Neurogenic bladder Neurogenic bladder, NOS Urinary retention Retention of urine, unspecified Urinary incontinence without sensory awareness Incontinence without sensory awareness [facility] in this encounter [facility]* Diagnosis Cellulitis of left foot- Primary Ulcer of left ankle, with necrosis of bone (HCC) ([facility]/HCC) Diabetes mellitus due to underlying condition with diabetic polyneuropathy, unspecified whether intermediate insulin use (CMS/HCC) Acute complete paraplegia (CMS/HCC) Acute osteomyelitis of left fibula (CMS/HCC) Foot ulcer, right, with fat layer exposed (CMS/HCC) Venous insufficiency Unspecified venous (peripheral) insufficiency [facility] Diagnosis Abscess of toe, right- Primary documented in this encounter [facility] No data available for this section [facility] Summary Purpose Family History Relationship Condition Age at Onset Recorded Date/T alverto father Autoimmune disorder Unknown Not Specified Myocardial infarction Unknown Hypertension Unknown Advance Directives Advance Directive Response Recorded Date/ Time Advance Directives No November 8:39am Latest Code Status on File Code Status Date Activated Date Inactivated Comments Full Code 06/22/2022 8:18 PM Full Code 06/14/2017 10:11 AM 06/14/2017 1:27 PM Full Code 04/09/2017 1:19 AM 04/13/2017 11:55 PM Full Code 12/25/2016 1:27 PM 12/29/2016 4:28 PM Full Code 12/23/2016 10:36 PM 12/25/2016 1:27 PM Latest Code Status on File Code Status Date Activated Date Inactivated Comments Full Code 06/22/2022 8:18 PM Full Code 06/14/2017 10:11 AM 06/14/2017 1:27 PM Full Code 04/09/2017 1:19 AM 04/13/2017 11:55 PM Full Code 12/25/2016 1:27 PM 12/29/2016 4:28 PM Full Code 12/23/2016 10:36 PM 12/25/2016 1:27 PM Healthcare Agents on File Name Relationship Healthcare Agent Relationshi p Communication Jaelyn Alloway Spouse Primary Decision Maker Latest Code Status on File Code Status Date Activated Date Inactivated Comments Full Code 06/22/2022 8:18 PM 06/26/2022 7:20 PM Code Status History Code Status Date Activated Date Inactivated Comments Full Code 06/14/2017 10:11 AM 06/14/2017 1:27 PM Full Code 04/09/2017 1:19 AM 04/13/2017 11:55 PM Full Code 12/25/2016 1:27 PM 12/29/2016 4:28 PM Full Code 12/23/2016 10:36 PM 12/25/2016 1:27 PM Healthcare Agents on File Name Relationship Healthcare Agent Relationshi p Communication Jaelyn Alloway Spouse Primary Decision Maker Advance Directive Response Recorded Date/ Time Advance Directives No November 9:39am Latest Code Status on File Code Status Date Activated Date Inactivated Comments Full Code 2022 9:37 AM 2022 3:54 PM Code Status History Code Status Date Activated Date Inactivated Comments Full Code 06/22/2022 8:18 PM 06/26/2022 7:20 PM Full Code 06/14/2017 10:11 AM 06/14/2017 1:27 PM Full Code 04/09/2017 1:19 AM 04/13/2017 11:55 PM Full Code 12/25/2016 1:27 PM 12/29/2016 4:28 PM Healthcare Agents on File Name Relationship Healthcare Agent Relationshi p Communication Jaelyn Alloway Spouse Primary Decision Maker Chief Complaint and Reason for Visit Chief Complaint Open Wound Reason for Visit Right hip pain Stage IV pressure ulcer of sacral region Unstageable pressure ulcer of right heel Cauda equina spinal cord injury Diabetes Pressure ulcer of left hip, stage 3 Pressure ulcer of right hip, stage 3 Chief Complaint return / r foot/ sac ral/ cart Reason for Visit Pressure injury of l eft ischium, stage 4 Pressure injury of right ischium, stage 4 Pressure ulcer of right foot, stage 2 Right hip pain Stage IV pressure ulcer of sacral region Cauda equina spinal cord injury Diabetes Reason for Referral Specialty Diagnoses / Procedures Referred By Contac t Referred To Contact Cardiology Diagnoses Neurogenic bladder Procedures EKG 12 Lead Angeles Nagy MD [address] [facility] [place] [facility], [address] [place] [address] Referral ID Status Reason Start Date Expiration Date V isits Requested Visits Authorized [id number] Pending Review 06/22/2022 06/22/2023 1 1 Specialty Diagnoses / Procedures Referred By Contac t Referred To Contact Radiology Diagnoses Cauda equina syndrome (HCC) Neurogenic bladder Urinary retention Urinary incontinence without sensory awareness Procedures US RENAL COMPLETE Ashlee Erwin, SUPERVIS[employer] - HUMAN RESOURCES DESIGNATE [address] [facility] [address] [place] [address] Referral ID Status Reason Start Date Expiration Date Visits Re quested Visits Authorized [id number] Open 09/18/2022 09/18/2023 1 1 Additional Source Comments (unrecognized sect ion and content) No Status Records FoundNo Status Records FoundNo Status Records FoundNo Status Records FoundNo Status Records FoundNo Status Records Found INFORMATION SOURCE (unrecogn ized section and content) DATE CREATED AUTHOR 09/21/2017 [facility] DATE CREATED AUTHOR AUTHOR'S ORGANIZ ATION 04/08/2022 [facility] [place] [facility] DATE CREATED AUTHOR AUTHOR'S ORGANIZ ATION [facility]20[facility] DATE CREATED AUTHOR AUTHOR'S ORGANIZ ATION 05/01/2023 [facility] DATE CREATED AUTHOR AUTHOR'S ORGANIZ ATION 05/05/2023 [facility] DATE CREATED AUTHOR AUTHOR'S ORGANIZ ATION 05/07/2023 [facility] EPIC Care Teams (unrecognized sec tion and content) Team Status: Active Member Role Status Dates Fidel Abbott MD Primary Care Provider Active Team Status: Inactive Member Role Status Dates Fidel Abbott MD Primary Care Provider Active Cathy Brar MD Attending Provider Active [employer] Professor Relationship Specialty Start Date End Date Fidel Abbott MD PCP - General 07/03/15 [employer] Professor Relationship Specialty Start Date End Date Fidel Abbott MD PCP - General 07/03/15 [employer] Professor Relationship Specialty Start Date End Date Fidel Abbott MD PCP - General 07/03/15 [employer] Professor Relationship Specialty Start Date End Date Fidel Abbott MD PCP - General 07/03/15 [employer] Professor Relationship Specialty Start Date End Date Fidel Abbott MD PCP - General 07/03/15 [employer] Professor Relationship Specialty Start Date End Date Fidel Abbott MD PCP - General Family Medicine 12/10/22 Fidel Abbott MD [address] [place] [id number] PCP - [employer] 03/29/23 [employer] Professor Relationship Specialty Start Date End Date Fidel Abbott MD PCP - General Family Medicine 12/10/22 Fidel Abbott MD [address] [place] [phone] PCP - [employer] 03/29/23 [employer] Professor Relationship Specialty Start Date End Date Fidel Abbott MD [address] [place] [phone] PCP - Jaron Ballard 03/29/23 Fidel Abbott MD [address] [place] [phone] PCP - General Family Medicine 05/12/23 Goals (unrecognized section and content) Goals may be documented in a n alternate sectionGoals may be documented in an alternate section No data available for this section Reason for Visit (unrecogniz ed section and content) Reason Comments Abnormal Lab Pt sent from urology for abnormal pre-op bloodwork. Urology reports pt potassium is 6.1 and creatinine is 2.0. Sent pt here for evaluation Specialty Diagnoses / Procedures Referred By Farzaneh t Referred To Contact Diagnoses Hyperkalemia Acute kidney injury (HCC) Matias Doss MD [address] [place] [address] [facility] [id number] [place] [address] Referral ID Status Reason Start Date Expiration Date Visits Re quested Visits Authorized [id number] 1 1 Specialty Diagnoses / Procedures Referred By Contac t Referred To Contact Radiology Diagnoses Cauda equina syndrome (HCC) Neurogenic bladder Urinary retention Urinary incontinence without sensory awareness Procedures US RENAL COMPLETE Ashlee Erwin, SUPERVISOR [employer] - HUMAN RESOURCES DESIGNATE [address] [facility] [address] [place] [address] Referral ID Status Reason Start Date Expiration Date Visits Re quested Visits Authorized [id number] Open 09/18/2022 09/18/2023 1 1 Reason Comments Foot Ulcer Reason Onset Date Comments Prescription 05/13/2023 Ordered Prescriptions (unrec ognized section and content) Prescription Sig Dispensed Refills Start Date End Da te ferrous sulfate (IRON 325) 325 (65 Fe) MG tablet Take 1 tablet by mouth daily (with breakfast) 90 tablet 1 06/26/2022 Gauze Pads & Dressings (KERLIX GAUZE ROLL MEDIUM) MISC 2 each by Does not apply route daily 96 each 2 06/26/2022 [facility]MC-Calcium Alginate-Silver (TEGADERM ALGINATE AG DRESSING) 4 X 5 PADS Apply 1 each topically daily Right ankle and foot open wounds. Then cover with Kerlex and Olga 25 each 3 06/26/2022 clindamycin (CLEOCIN) 300 MG capsule Take 1 capsule by mouth 3 times daily for 10 days 30 capsule 0 06/26/2022 07/06/2022 Multiple Vitamin (MULTIVITAMIN) TABS tablet Take 1 tablet by mouth daily 30 tablet 2 06/27/2022 amLODIPine (NORVASC) 10 MG tablet Take 1 tablet by mouth daily 30 tablet 3 06/27/2022 citalopram (CELEXA) 40 MG tablet Take 1 tablet by mouth daily 30 tablet 3 06/27/2022 atenolol (TENORMIN) 100 MG tablet Take 1 tablet by mouth daily 30 tablet 3 06/27/2022 sodium hypochlorite (DAKINS) 0.125 % SOLN external solution Apply topically daily Use on the Curlex gauze dressings changed once daily on the sacrococcygeal wound and buttock wounds 473 mL 2 06/26/2022 Scheduled Active and Recently Administ ered Medications (unrecognized section and content) Medication Order 06/24/2022 06/25/2022 06/26/2022 amLODIPine (NORVASC) tablet 10 mg 10 mg, Oral, DAILY, First dose on Wed06/23/22 at 0900, Until Discontinued 0907 (Given - Provider: Heri Valdez RN) 0723 (Given - Provider: Heri Valdez RN) 0812 (MAR Hold - Provider: Cammy Autohold - Reason: Unreviewed Transfer Orders)0900 (Automatically Held - Provider: Cammy Autohold)0959 (MAR Unhold - Provider: Dragan Voss RN)1234 (Given - Provider: Linh Chan) atenolol (TENORMIN) tablet 100 mg 100 mg, Oral, DAILY, First dose on Wed06/23/22 at 0900, Until Discontinued 0907 (Given - Provider: Heri Valdez RN) 0723 (Given - Provider: Heri Valdez RN) 0812 (MAR Hold - Provider: Cammy Autohold - Reason: Unreviewed Transfer Orders)0900 (Automatically Held - Provider: Cammy Kinghold)0959 (MAR Unhold - Provider: Dragan Voss RN)1233 (Given - Provider: Linh Chan) citalopram (CELEXA) tablet 40 mg 40 mg, Oral, DAILY, First dose on Wed06/23/22 at 0900, Until Discontinued 0907 (Given - Provider: Heri Valdez RN) 0723 (Given - Provider: Heri Valdez RN) 0812 (MAR Hold - Provider: Cammy Autohold - Reason: Unreviewed Transfer Orders)0900 (Automatically Held - Provider: Cammy Kinghold)0959 (MAR Unhold - Provider: Dragan Voss RN)1235 (Given - Provider: Linh Rocio) clindamycin (CLEOCIN) 600 mg in dextrose 5 % 50 mL IVPB 600 mg, IntraVENous, EVERY 8 HOURS, 21 doses, First dose on Wed06/23/22 at 1630, Last dose on Wed06/30/22 at 1245, Antimicrobial Indications: Skin and Soft Tissue Infection, Skin duration of therapy: 7 days 0000 (New Bag - Provider: Geneva Samayoa RN)0030 (Stopped - Provider: Geneva Samayoa RN)0906 (New Bag - Provider: Heri Valdez RN)1005 (Stopped - Provider: Heri Valdez RN)1633 (New Bag - Provider: Heri Valdez RN)1703 (Stopped - Provider: Geneva Samayoa, RENETTA) 0021 (New Bag - Provider: Geneva Samayoa RN)0051 (Stopped - Provider: Geneva Samayoa RN)0825 (New Bag - Provider: Sylvia Chao)0922 (Stopped - Provider: Heri Valdez RN)1619 (New Bag - Provider: Heri Valdez RN)1715 (Stopped - Provider: Heri Valdez RN) 0101 (New Bag - Provider: Panchito Crockett RN)0131 (Stopped - Provider: Panchito Crockett RN)0812 (MAR Hold - Provider: Cammy Autohold - Reason: Unreviewed Transfer Orders)0830 (Automatically Held - Provider: Cammy Kinghold)0959 (MAR Unhold - Provider: Dragan Voss RN)1245 (New Bag - Provider: Linh Chan)1320 (Stopped - Provider: June Rocio)2045 (Due - Provider: Linda Ibrahim [facility]) fenofibrate (TRIGLIDE) tablet 160 mg 160 mg, Oral, DAILY, First dose on Wed06/23/22 at 0900, Until Discontinued, Substituted for Fenofibrate (Non-Formulary Dose). 0907 (Given - Provider: Heri Valdez RN) 0724 (Given - Provider: Heri Valdez RN) 0812 (MAR Hold - Provider: Cammy Autohold - Reason: Unreviewed Transfer Orders)0900 (Automatically Held - Provider: Cammy Autohold)0959 (MAY Unhold - Provider: Dragan Voss RN)1235 (Given - Provider: June Rocio) gentamicin (GARAMYCIN) 250 mg in sterile water for irrigation 250 mL irrigation (COMPLETED) 250 mg, Irrigation, ONCE, On Wed06/25/22 at 0830, For 1 dose 1234 (Given by Other Clinician - Provider: Heri Valdez RN - Comment: Dr. Min used solution bedside.) heparin (porcine) injection 5,000 Units 5,000 Units, SubCUTAneous, EVERY 8 HOURS SCHEDULED (3 times per day), First dose on Wed06/22/22 at 2200, Until Discontinued 0911 (Not Given - Provider: Heri Valdez RN - Reason: Contraindicated)1512 (Held by provider - Provider: ESTELLE Katz CNP - Reason: Other)1600 (Automatically Held - Provider: ESTELLE Katz CNP) 0000 (Automatically Held - Provider: ESTELLE Katz CNP)0800 (Automatically Held - Provider: ESTELLE Katz CNP)1600 (Automatically Held - Provider: ESTELLE Katz CNP) 0000 (Automatically Held - Provider: ESTELLE Katz CNP)0800 (Automatically Held - Provider: ESTELLE Katz CNP)1600 (Automatically Held - Provider: ESTELLE Katz CNP) multivitamin 1 tablet 1 tablet, Oral, DAILY, First dose on Wed06/25/22 at 0900, Until Discontinued 0724 (Given - Provider: Heri Valdez RN) 0812 (MAY Hold - Provider: Cammy Autohold - Reason: Unreviewed Transfer Orders)09 (Automatically Held - Provider: Cammy Autohold)0959 ([facility] Unhold - Provider: Dragan Voss RN)1235 (Given - Provider: Linh Chan) polyethylene glycol (GoLYTELY) solution 4,000 mL (COMPLETED) 4,000 mL, Oral, ONCE, 1 dose, On Wed06/25/22 at 1800, Fill container containing powder with lukewarm water to 4 liter fill line. After capping container, shake vigorously several times. Drink at a rate of 240 mL (8 oz.) every 10 minutes, until 4 liters are consumed or rectal effluent is clear. For nasogastric tube, rate is 1.2 to 1.8 liters per hour. 1734 (Given - Provider: Heri Valdez RN) sodium chloride flush 0.9 % injection 10 mL 10 mL, IntraVENous, EVERY 12 HOURS SCHEDULED (2 times per day), First dose on Wed06/22/22 at 2100, Until Discontinued 161 (Not Given - Provider: Heri Valdez RN - Reason: IV Fluid Infusing)202 (Not Given - Provider: Geneva Samayoa RN - Reason: IV Fluid Infusing) 0726 (Not Given - Provider: Heri Valdez RN - Reason: IV Fluid Infusing)2247 (Not Given - Provider: Panchito Crockett RN - Reason: IV Fluid Infusing) 0812 ([facility] Hold - Provider: Cammy Autohold - Reason: Unreviewed Transfer Orders)09 (Automatically Held - Provider: Cammy Autohold)0959 ([facility] Unhold - Provider: Dragan Voss RN)2100 (Due) sodium hypochlorite (DAKINS) 0.125 % external solution Irrigation, DAILY, First dose on Wed06/23/22 at 1930, Use on the Curlex gauze dressings changed once that shift on the sacrococcygeal wound and buttock wounds 1618 (Given - Provider: Heri Valdez RN - Comment: bottle already in room) 1127 (Given - Provider: Heri Valdez RN) 0812 (MAR Hold - Provider: Cammy Autohold - Reason: Unreviewed Transfer Orders)0900 (Automatically Held - Provider: Cammy Kinghold)0959 ([facility] Unhold - Provider: Dragan Voss RN) Continuous Medication Order 06/24/2022 06/25/2022 06/26/2022 0.9 % sodium chloride infusion IntraVENous, at 75 mL/hr, CONTINUOUS, Starting on Wed06/22/22 at 2045 0020 (New Bag - Provider: Geneva Samayoa RN) 0812 (MAR Hold - Provider: Cammy Autohold - Reason: Unreviewed Transfer Orders)0959 ([facility] Unhold - Provider: Dragan Voss RN)1340 (New Bag - Provider: Linh Chan)1622 (Stopped - Provider: Mel Schilling RN) PRN Medication Order 06/24/2022 06/25/2022 06/26/2022 0.9 % sodium chloride infusion IntraVENous, at 5-250 mL/hr, PRN, if patient receiving piggyback infusions and maintenance fluids are not ordered OR KVO fluids to protect IV site / prevent frequent line interruptions/ long duration, Starting on Wed06/22/22 at 2018, For piggyback infusion, administer at same rate as piggyback for a total of 25 mL. Enter 25 mL into dose field and piggyback rate into rate field of order. If piggyback is infusing at a rate less than 100 mL/hr, enter 25 mL into dose field and 100 mL/hr into rate field of order. For KVO fluids, enter rate of 20 mL/hr or less into rate field of order. 0812 ([facility] Hold - Pro vider: Camym Autohold - Reason: Unreviewed Transfer Orders)0959 ([facility] Unhold - Provider: Dragan Voss RN) 0.9 % sodium chloride infusion IntraVENous, at 240 mL/hr, Administer over 10 Minutes, PRN, blood administration, Starting on Wed06/24/22 at 0733, For 1 dose, For use in priming line prior to transfusion (prime via gravity) and flush line post transfusion ONLY. Discontinue once line has been cleared of remaining blood product. 0812 ([facility] Hold - Pro vider: Cammy Autohold - Reason: Unreviewed Transfer Orders)0959 ([facility] Unhold - Provider: Dragan Voss RN) acetaminophen (TYLENOL) suppository 650 mg(Linked Group 1) 650 mg, Rectal, EVERY 6 HOURS PRN, Starting on Wed06/22/22 at 2017, Until Discontinued, Pain Mild (1-3), Fever, For temp greater than 100.4 F (38 C), Administer if oral route cannot be used. 0812 ([facility] Hold - Pro vider: [facility] [employer] - Reason: Unreviewed Transfer Orders)0959 ([facility] Unhold - Provider: Dragan Voss RN) acetaminophen (TYLENOL) tablet 650 mg(Linked Group 1) 650 mg, Oral, EVERY 6 HOURS PRN, Starting on Wed06/22/22 at 2017, Until Discontinued, Pain Mild (1-3), Fever, For temp greater than 100.4 F (38 C), Maximum dose of acetaminophen is 4000 mg from all sources in 24 hours. 0812 ([facility] Hold - Pro vider: [facility] [employer] - Reason: Unreviewed Transfer Orders)0959 ([facility] Unhold - Provider: Dragan Voss RN) ondansetron (ZOFRAN) injection 4 mg(Linked Group 2) 4 mg, IntraVENous, EVERY 6 HOURS PRN, Starting on Wed06/22/22 at 2017, Until Discontinued, Nausea, Vomiting, Administer if oral route cannot be used. 0812 ([facility] Hold - Pro vider: [facility] [employer] - Reason: Unreviewed Transfer Orders)0959 ([facility] Unhold - Provider: Dragan Voss RN) ondansetron (ZOFRAN-ODT) disintegrating tablet 4 mg(Linked Group 2) 4 mg, Oral, EVERY 8 HOURS PRN, Starting on Wed06/22/22 at 2017, Until Discontinued, Nausea, Vomiting 0812 ([facility] Hold - Pro vider: [facility] [employer] - Reason: Unreviewed Transfer Orders)0959 ([facility] Unhold - Provider: Dragan Voss RN) polyethylene glycol (GLYCOLAX) packet 17 g 17 g, Oral, DAILY PRN, Starting on Wed06/22/22 at 2017, Until Discontinued, Constipation, First line therapy for constipation 0812 ([facility] Hold - Pro vider: [facility] [employer] - Reason: Unreviewed Transfer Orders)0959 ([facility] Unhold - Provider: Dragan Voss RN) sodium chloride flush 0.9 % injection 10 mL 10 mL, IntraVENous, PRN, Starting on Wed06/22/22 at 2017, Until Discontinued, Line Care, After every IV line use 0812 (MAY Hold - Pro vider: May [employer] - Reason: Unreviewed Transfer Orders)0959 ([facility] Unhold - Provider: Dragan Voss RN) Linked Groups Order Group 1: acetaminophen (TYLENOL) tablet 650 mgJump to med 650 mg, Oral, EVERY 6 HOURS PRN, Starting on Wed06/22/22 at 2017, Until Discontinued, Pain Mild (1-3), Fever, For temp greater than 100.4 F (38 C)
Maximum dose of acetaminophen is 4000 mg from all sources in 24 hours.
Or acetaminophen (TYLENOL) suppository 650 mgJump to med 650 mg, Rectal, EVERY 6 HOURS PRN, Starting on Wed06/22/22 at 2017, Until Discontinued, Pain Mild (1-3), Fever, For temp greater than 100.4 F (38 C)
Administer if oral route cannot be used.
Group 2: ondansetron (ZOFRAN-ODT) disintegrating tablet 4 mgJump to med 4 mg, Oral, EVERY 8 HOURS PRN, Starting on Wed06/22/22 at 2017, Until Discontinued, Nausea, Vomiting Or ondansetron (ZOFRAN) injection 4 mgJump to med 4 mg, IntraVENous, EVERY 6 HOURS PRN, Starting on Wed06/22/22 at 2017, Until Discontinued, Nausea, Vomiting
Administer if oral route cannot be used.
FOR RECORDS PERTAINING TO PATIENTS WHO ARE OR HAVE BEEN ENROLLED IN A CHEMICAL DEPENDENCY/SUBSTANCEABUSE PROGRAM, SOME INFORMATION MAY BE OMITTED. This clinical summary was aggregated from multiple sources. Caution should be exercised in using it in the provision of clinical care. This summary normalizes information from multiple sources, and as a consequence, information in this document may materially change the coding, format and clinical context of patient data. In addition, data may be omitted in some cases. CLINICAL DECISIONS SHOULD BE BASED ON THE PRIMARY CLINICAL RECORDS. [facility]. provides no warranty or guarantee of the accuracy or completeness of information in this document.
--- NOTE | 2023-05-18 10:37 | MR_ITS ---
The [address] [address] Patient Name: JOEL STINSON MRN: [id number] date: 1960 Sex: M Assigned Patient Location: MRI Current Patient Location: MRI Accession/Order Number: [id number] Exam Date: 05/18/2023 10:51 Report Date: 05/18/2023 16:05 At the request of: KASSIE MOFFETT Procedure: MR ankle LT wo con MR ankle LT wo con, 05/18/2023 10:51 AM EST INDICATION: Acute Osteomyelitis Of Left Fibula M65.162 COMPARISON: Prior x-ray of the left ankle dated 11/08/2022 TECHNIQUE: Multiplanar and multisequential MR images of the left ankle were obtained without contrast . FINDINGS: There is an ulcer at the level of the lateral malleolus extending to the lateral aspect of fibula causing T1 and T2 prolongation with no definite bone destruction most likely consistent with early osteomyelitis. No fluid collection or abscess or fistula is noted. Diffuse circumferential soft tissue swelling is noted. Muscles and tendons: The flexor and extensor tendons and muscles are unremarkable. No abnormality of the peroneal tendons is noted. Achilles tendon is unremarkable. There is fatty atrophy of the visualized muscles of anterior and posterior and lateral compartments. Sinus Tarsi: No abnormality of sinus Tarsi is noted. Ligaments: No abnormality of the visualized portion of the ligaments is noted. There is normal intra-articular joint effusion. MR/MR ankle LT wo con IMPRESSION: Finding suggesting of early osteomyelitis of the lateral fibula. No definite fluid collection or abscess is noted. Diffuse circumferential soft tissue swelling. Cellulitis cannot be totally excluded by imaging. Electronically authenticated by: EMPERATRIZ HAQUE Date: 05/18/2023 16:05
== END 2023-05-18 10:08 | disposition home or self-care (01) ==
LOC: MRI 10:08
PROVIDERS: PCP Family Medicine
DX: D72.829 Elevated white blood cell count, unspecified (principal); D50.9 Iron deficiency anemia, unspecified; M86.162 Other acute osteomyelitis, left tibia and fibula
CPT/HCPCS: 36415; 73721; 80048; 85025; 85652; 86140

== ENCOUNTER 2023-05-18 10:11 | Outpatient (OUT) | payer BC, MEDICARE, SELFPAY ==
--- OUTSIDE RECORDS SUMMARY | 2023-05-18 10:27 | XMS_ITS | CCD ---
Author Name Unknown Address [address] [place] [address] Organization [facility] Care Team Providers Care Supervisor Of Operations Name Role Phone MICHAELA ONTIVEROS Unavailable Unavailable NADERER, FIDEL LIEBERMAN Unavailable Unavailabl e AOUAD, THIAGO Gaona Unavailable Unavailable BLOOD, GANGA Gutiérrez Unavailable Unavailable BRAMBILA, JAI Chowdhury Unavailable Unavailable SCHNICATHYAREA PLANT MANAGER, WILLIAM Unavailable Unavaila ble SHASHA, KHADAR Murphy [...] [facility] Unavailable WEST, DR KHADAR Edwrads Consulting Unavailable BRAR, DR CATHY Edwards Consulting Unavailable MD Fidel Abbott Primary Care Provider MD Cathy Brar Attending Provider Fidel Abbott MD Primary Care Provider MD Fidel Abbott Primary Care Provider MD Cathy Brar Attending Provider Fidel Abbott MD Primary Care Provider SHELLY MONDRAGON Referring Unavail able NADFIDEL SIN Primary Care Unavailabl e ASHLEE ERWIN Referring Unavailable NADERERFIDEL Primary Care Unavailabl e PARSJALEN, ASHLEE Merritt Referring Unavailable NADERER, FIDEL LUISANA Primary Care Unavailabl e ZACISTEVEN, ANGELES Referring Unavailable NADERER, FIDEL LUISANA Primary Care Unavailabl e ZACIEWSKI, ANGELES Attending Unavailable ZACIEWSIGNACIO, ANGELES Admitting Unavailable NADERER, FIDEL LUISANA Primary Care Unavailabl e IACOB, MATIAS Admitting Unavailable IACOB, MATIAS Attending Unavailable MARY LEAHY Consulting Unavailable NADERER, FIDEL [place] Primary Care Unavailabl e ZACIEWSKI, ANGELES Consulting Unavailable BREMYERYAKOV Consulting Unavailable CIARAROSIE Consulting Unavailable AHMAD, MICHELLE Garcia Consulting Unavailable MILLY, KATERINA Grijalva Consulting Unavailable NADERER, FIDEL LUISANA Primary Care Unavailabl e ZACIEWSKI, ANGELES Referring Unavailable NADERER, FIDEL [place] Primary Care Unavailabl e PARSELL, ASHLEE Merritt [...] Milena NAZARIO, Fidel Primary Care Provider Milena NAZARIO, Fidel Unavailable Fidel Abbott MD Primary Care Provider Allergies Allergy Classification Reported Allergen(s) Allergy Type Date of Onset Reaction(s) Facility (3 sources) Vancomycin Drug Allergy 6 Shut kidneys down [facility] (9 sources) Vancomycin Drug Allergy 6 Other, Unknown [facility] (6 sources) omadacycline; 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: [omadacycl] Drug allergy 3 Renal pain (finding) [facility] (1 source) ferrous sulfate Drug Allergy 3 [facility] (1 source) Vancomycin Drug Allergy 3 [facility] Medications Current Medications Medication Drug Class(es) [...] Called to pharmacy 09/09/2021 polyethylene glycol 3350 36545 mg powder for oral solution (1 source) Osmotic Laxative Start: 06-22-2022 17 g, Oral, DAILY PRN, Starting on Wed06/22/22 at 2018, Until Discontinued, Constipation First line therapy for constipation polyethylene glycol 3350 684905 mg / potassium chloride 2970 mg / sodium bicarbonate 6740 mg / sodium chloride 5860 mg / sodium sulfate 90788 mg powder for oral solution (1 source) [...] GM/60ML suspension 45 g sodium zirconium cyclosilicate 63419 mg powder for oral suspension (1 source) [...] 10:21am Start: 12-07-2016 End: 12-08-2016 Bactrim Discontinued [facility] 2016 12:00am December 08, 2016 2:50pm Start: 12-07-2016 End: 12-08-2016 Bactrim Discontinued [facility] 2016 11:00pm December 08, 2016 1:50pm Problems [...] 4 12-24-2016 Chronic Other aftercare (1 source) 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; 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: [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] Onset: 3 Episodic [...] Acute and unspecified renal failure (16 sources) Araxu-dx-veexzon renal failure; 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: [Acute kidney failure, unspecified] [...] [place] To: EU - Recalls [place]; Cc: Ama Arteaga; Sent: 01/15/2023 08:12:10 EDT Show up: 04/29/2023 08:12:00 EST Subject: Cysto/UD Due Date/Time: 06/07/2023 08:11:00 EDT Reminder/Recall Patient needs 6 month cysto/UD in June 2023 Spoke to pt, sched for 07/12/23 at [facility].LG Patient will be due in Dec 2023.LG Normal [facility] Basic Metabolic Panelon 11-1 Anion gap [Moles/Vol] 8.4 mmol/L Normal 6.0-15.0 [facility] Comment on above: Performed By: #### G LULS #### Point of Care testing , Calcium [Mass/Vol] 7.8 mg/dL Low 8.6-10.[address] [facility] Comment on above: Performed By: #### G LULS #### Point of Care testing , Chloride [Moles/Vol] 108 mmol/L High 98-107 [facility] Comment on above: Performed By: #### G LULS #### Point of Care testing , CO2 [Moles/Vol] 24.7 mmol/L Normal 21.0-31.0 [facility] Comment on above: Performed By: #### G MAURICIOLS #### Point of Care testing , Creatinine [Mass/Vol] 1.41 mg/dL High 0.70-1.30 [facility] Comment on above: Performed By: #### G MAURICIOLS #### Point of Care testing , Creatinine Clr Calc Pharmacy 69.02 Normal [facility] Comment on above: Result Comment: PERF ORMED BY: [facility] [address] [place] [address] PATHOLOGIST DRUG ABUSE PROGRAM COORDINATOR FARRAH PAUL M.D. Performed By: #### G MAURICIOLS #### Point of Care testing , GFR/1.73 sq M.predicted MDRD (S/P/Bld) [Vol rate/Area] 56.696 mL/min/{1.73_m2} Normal [facility] Comment on above: Performed By: #### G MAURICIOLS #### Point of Care testing , Glucose [Mass/Vol] 176 mg/dL Significant change up 70-100 [facility] Comment on above: Result Comment: [place] Glucose Reference Range is dependent on time and content of last meal. Glucose of more than 200 mg/dL in a nonstressed, ambulatory subject supports the diagnosis of Diabetes Mellitus. ADA recommended reference range Performed By: #### G MAURICIOLS #### Point of Care testing , Potassium [Moles/Vol] 4.1 mmol/L Normal 3.5-5.1 [facility] Comment on above: Performed By: #### G MAURICIOLS #### Point of Care testing , Sodium [Moles/Vol] 137 mmol/L Normal 136-[address] [facility] Comment on above: Performed By: #### G MAURICIOLS #### Point of Care testing , Urea nitrogen [Mass/Vol] 17 mg/dL Normal 7-25 [facility] Comment on above: Performed By: #### G MAURICIOLS #### Point of Care testing , Glucose Poct Glucometerson 1 04-15-2022 Commemt1 Glu2: Cleaned Meter Normal [facility] Comment on above: Result Comment: PERF ORMED BY: [facility] [address] [place] [address] PATHOLOGIST DRUG ABUSE PROGRAM COORDINATOR FARRAH PAUL M.D. Performed By: #### G LULS #### Point of Care testing , Glucose [Mass/Vol] 162 mg/dL Normal [facility] Comment on above: Result Comment: [place] om Glucose Reference Range is dependent on time and content of last meal. Glucose of more than 200 mg/dL in a nonstressed, ambulatory subject supports the diagnosis of Diabetes Mellitus. Performed By: #### G LULS #### Point of Care testing , Glucose [Mass/Vol] 76 mg/dL Normal [facility] Comment on above: Result Comment: [place] om Glucose Reference Range is dependent on time and content of last meal. Glucose of more than 200 mg/dL in a nonstressed, ambulatory subject supports the diagnosis of Diabetes Mellitus. PERFORMED BY: [facility] [address] [place] [address] PATHOLOGIST DRUG ABUSE PROGRAM COORDINATOR FARRAH PAUL M.D. Performed By: #### G LULS #### Point of Care testing , Basic Metabolic Panelon 01-27 Anion gap [Moles/Vol] 10.8 mmol/L Normal 6.0-15.0 [facility] Comment on above: Performed By: #### G MAURICIOLS #### Point of Care testing , Calcium [Mass/Vol] 8.0 mg/dL Low 8.6-10.[address] [facility] Comment on above: Performed By: #### G LULS #### Point of Care testing , Chloride [Moles/Vol] 106 mmol/L Normal 98-107 [facility] Comment on above: Performed By: #### G LULS #### Point of Care testing , CO2 [Moles/Vol] 26.2 mmol/L Normal 21.0-31.0 [facility] Comment on above: Performed By: #### G LULS #### Point of Care testing , Creatinine [Mass/Vol] 1.47 mg/dL High 0.70-1.30 [facility] Comment on above: Performed By: #### G LULS #### Point of Care testing , Creatinine Clr Calc Pharmacy 66.15 Normal [facility] Comment on above: Result Comment: PERF ORMED BY: [facility] [address] [place] [address] PATHOLOGIST DRUG ABUSE PROGRAM COORDINATOR FARRAH PAUL M.D. Performed By: #### G LULS #### Point of Care testing , GFR/1.73 sq M.predicted MDRD (S/P/Bld) [Vol rate/Area] 53.931 mL/min/{1.73_m2} Normal [facility] Comment on above: Performed By: #### G LULS #### Point of Care testing , Glucose [Mass/Vol] 71 mg/dL Normal 70-[address] [facility] Comment on above: Result Comment: [facility] Glucose Reference Range is dependent on time and content of last meal. Glucose of more than 200 mg/dL in a nonstressed, ambulatory subject supports the diagnosis of Diabetes Mellitus. ADA recommended reference range Performed By: #### G LULS #### Point of Care testing , Potassium [Moles/Vol] 4.0 mmol/L Normal 3.5-5.1 [facility] Comment on above: Performed By: #### G LULS #### Point of Care testing , Sodium [Moles/Vol] 139 mmol/L Normal 136-[address] [facility] Comment on above: Performed By: #### G LULS #### Point of Care testing , Urea nitrogen [Mass/Vol] 18 mg/dL Normal 7-25 [facility] Comment on above: Performed By: #### G LULS #### Point of Care testing , Complete Blood Count Auto Di ffon 02-12-2023 Basophils (Bld) [#/Vol] 0.1 10*3/uL Normal 0.0-0.2 [facility] Comment on above: Result Comment: PERF ORMED BY: [facility] [address] [place] [address] PATHOLOGIST DRUG ABUSE PROGRAM COORDINATOR FARRAH PAUL M.D. Performed By: #### G MAURICIOLS #### Point of Care testing , Basophils/100 WBC (Bld) 0.6 % Normal . [facility] Comment on above: Performed By: #### G MAURICIOLS #### Point of Care testing , Eosinophils (Bld) [#/Vol] 0.7 10*3/uL High 0.0-0.45 [facility] Comment on above: Performed By: #### G MAURICIOLS #### Point of Care testing , Eosinophils/100 WBC (Bld) 5.7 % Normal . [facility] Comment on above: Performed By: #### G MAURICIOLS #### Point of Care testing , Erythrocyte distribution width (RBC) [Ratio] 15.6 % High 12.0-14.8 [facility] Comment on above: Performed By: #### G MAURICIOLS #### Point of Care testing , Hematocrit (Bld) [Volume fraction] 27.3 % Low 38.8-50.0 [facility] Comment on above: Performed By: #### G MAURICIOLS #### Point of Care testing , Hemoglobin (Bld) [Mass/Vol] 8.7 g/dL Low 13.0-17.0 [facility] Comment on above: Performed By: #### G MAURICIOLS #### Point of Care testing , Lymphocytes (Bld) [#/Vol] 2.2 10*3/uL Normal 1.00-4.8 [facility] Comment on above: Performed By: #### G MAURICIOLS #### Point of Care testing , Lymphocytes/100 WBC (Bld) 18.7 % Normal . [facility] Comment on above: Performed By: #### G MAURICIOLS #### Point of Care testing , MCH (RBC) [Entitic mass] 25.4 pg Low 27.5-35.2 [facility] Comment on above: Performed By: #### G MAURICIOLS #### Point of Care testing , MCV (RBC) [Entitic vol] 79.6 fL Low 83.5-101 [facility] Comment on above: Performed By: #### G MAURICIOLS #### Point of Care testing , Mean Corpuscular HGB Conc 32.0 g/dL Low 32.5-35.6 [facility] Comment on above: Performed By: #### Eros CALABRESE #### Point of Care testing , Monocytes (Bld) [#/Vol] 1.0 10*3/uL High 0.0-0.8 [facility] Comment on above: Performed By: #### Eros CALABRESE #### Point of Care testing , Monocytes/100 WBC (Bld) 8.8 % Normal . [facility] Comment on above: Performed By: #### Eros CALABRESE #### Point of Care testing , Neutrophils (Bld) [#/Vol] 7.9 10*3/uL High 1.8-7.7 [facility] Comment on above: Performed By: #### Eros CALABRESE #### Point of Care testing , Neutrophils/100 WBC (Bld) 66.2 % Normal . [facility] Comment on above: Performed By: #### Eros MARTÍNEZLS #### Point of Care testing , NRBC% 0.1 /100{WBC} Normal 0-0.5 [facility] Comment on above: Performed By: ###[place] CALABRESE #### Point of Care testing , Platelet mean volume (Bld) [Entitic vol] 6.4 fL Low 6.6-10.1 [facility] Comment on above: Performed By: #### Eros CALABRESE #### Point of Care testing , Platelets (Bld) [#/Vol] 305 10*3/uL Normal 150-450 [facility] Comment on above: Performed By: #### Eros CALABRESE #### Point of Care testing , RBC (Bld) [#/Vol] 3.43 10*6/uL Low 3.90-5.60 [facility] Comment on above: Performed By: #### Eros CALABRESE #### Point of Care testing , WBC (Bld) [#/Vol] 11.9 10*3/uL High 4.1-10.5 [facility] Comment on above: Performed By: #### G LULS #### Point of Care testing , Glucose Poct Glucometerson 1 04-14-2022 Glucose [Mass/Vol] 138 mg/dL Normal [facility] Comment on above: Result Comment: [facility] Glucose Reference Range is dependent on time and content of last meal. Glucose of more than 200 mg/dL in a nonstressed, ambulatory subject supports the diagnosis of Diabetes Mellitus. PERFORMED BY: [address] [place] [address] PATHOLOGIST DRUG ABUSE PROGRAM COORDINATOR FARRAH PAUL M.D. Performed By: #### G LULS #### Point of Care testing , Glucose [Mass/Vol] 172 mg/dL Normal [facility] Comment on above: Result Comment: [facility] Glucose Reference Range is dependent on time and content of last meal. Glucose of more than 200 mg/dL in a nonstressed, ambulatory subject supports the diagnosis of Diabetes Mellitus. PERFORMED BY: [address] [place] [address] PATHOLOGIST DRUG ABUSE PROGRAM COORDINATOR FARRAH PAUL M.D. Performed By: #### G LULS #### Point of Care testing , Glucose [Mass/Vol] 99 mg/dL Normal [facility] Comment on above: Result Comment: [facility] Glucose Reference Range is dependent on time and content of last meal. Glucose of more than 200 mg/dL in a nonstressed, ambulatory subject supports the diagnosis of Diabetes Mellitus. PERFORMED BY: [address] [place] [address] PATHOLOGIST DRUG ABUSE PROGRAM COORDINATOR FARRAH PAUL M.D. Performed By: #### G LULS #### Point of Care testing , Commemt1 Glu2: Cleaned Meter Normal [facility] Comment on above: Result Comment: PERF ORMED BY: [facility] [address] [place] [id number] PATHOLOGIST DRUG ABUSE PROGRAM COORDINATOR FARRAH PAUL M.D. Performed By: #### G LULS #### Point of Care testing , Glucose [Mass/Vol] 81 mg/dL Normal [facility] Comment on above: Result Comment: [facility] Glucose Reference Range is dependent on time and content of last meal. Glucose of more than 200 mg/dL in a nonstressed, ambulatory subject supports the diagnosis of Diabetes Mellitus. Performed By: #### G LULS #### Point of Care testing , Basic Metabolic Panelon 01-27 Anion gap [Moles/Vol] 10.0 mmol/L Normal 6.0-15.0 [facility] Comment on above: Performed By: #### G LULS #### Point of Care testing , Calcium [Mass/Vol] 8.2 mg/dL Low 8.6-10.[address] [facility] Comment on above: Performed By: #### G LULS #### Point of Care testing , Chloride [Moles/Vol] 106 mmol/L Normal 98-107 [facility] Comment on above: Performed By: #### G LULS #### Point of Care testing , CO2 [Moles/Vol] 24.4 mmol/L Normal 21.0-31.0 [facility] Comment on above: Performed By: #### G LULS #### Point of Care testing , Creatinine [Mass/Vol] 1.25 mg/dL Normal 0.70-1.30 [facility] Comment on above: Performed By: #### G LULS #### Point of Care testing , Creatinine Clr Calc Pharmacy 77.72 [facility] Comment on above: Result Comment: PERF ORMED BY: [facility] [address] [place] [address] PATHOLOGIST DRUG ABUSE PROGRAM COORDINATOR FARRAH PAUL M.D. Performed By: #### G LULS #### Point of Care testing , GFR/1.73 sq M.predicted MDRD (S/P/Bld) [Vol rate/Area] mL/min/{1.73_m2} [facility] Comment on above: Performed By: #### G LULS #### Point of Care testing , Glucose [Mass/Vol] 164 mg/dL High 70-[address] [facility] Comment on above: Result Comment: [facility] Glucose Reference Range is dependent on time and content of last meal. Glucose of more than 200 mg/dL in a nonstressed, ambulatory subject supports the diagnosis of Diabetes Mellitus. ADA recommended reference range Performed By: #### G LULS #### Point of Care testing , Potassium [Moles/Vol] 4.4 mmol/L Normal 3.5-5.1 [facility] Comment on above: Performed By: #### G LULS #### Point of Care testing , Sodium [Moles/Vol] 136 mmol/L Normal 136-[address] [facility] Comment on above: Performed By: #### G LULS #### Point of Care testing , Urea nitrogen [Mass/Vol] 18 mg/dL Normal 7-25 [facility] Comment on above: Performed By: #### G LULS #### Point of Care testing , Complete Blood Count Auto Di ffon 02-11-2023 Basophils (Bld) [#/Vol] 0.0 10*3/uL Normal 0.0-0.2 [facility] Comment on above: Result Comment: PERF ORMED BY: [facility] [address] [place] [address] PATHOLOGIST DRUG ABUSE PROGRAM COORDINATOR FARRAH PAUL M.D. Performed By: #### G LULS #### Point of Care testing , Basophils/100 WBC (Bld) 0.3 % Normal . [facility] Comment on above: Performed By: #### G LULS #### Point of Care testing , Eosinophils (Bld) [#/Vol] 0.7 10*3/uL High 0.0-0.45 [facility] Comment on above: Performed By: #### G LULS #### Point of Care testing , Eosinophils/100 WBC (Bld) 5.1 % Normal . [facility] Comment on above: Performed By: #### G LULS #### Point of Care testing , Erythrocyte distribution width (RBC) [Ratio] 15.2 % High 12.0-14.8 [facility] Comment on above: Performed By: #### G LULS #### Point of Care testing , Hematocrit (Bld) [Volume fraction] 28.7 % Low 38.8-50.0 [facility] Comment on above: Performed By: #### G MAURICIOLS #### Point of Care testing , Hemoglobin (Bld) [Mass/Vol] 9.3 g/dL Low 13.0-17.0 [facility] Comment on above: Performed By: #### G MAURICIOLS #### Point of Care testing , Lymphocytes (Bld) [#/Vol] 1.0 10*3/uL Normal 1.00-4.8 [facility] Comment on above: Performed By: #### G MAURICIOLS #### Point of Care testing , Lymphocytes/100 WBC (Bld) 7.5 % Normal . [facility] Comment on above: Performed By: #### G MAURICIOLS #### Point of Care testing , MCH (RBC) [Entitic mass] 25.8 pg Low 27.5-35.2 [facility] Comment on above: Performed By: #### G MAURICIOLS #### Point of Care testing , MCV (RBC) [Entitic vol] 79.3 fL Low 83.5-101 [facility] Comment on above: Performed By: #### G BHARATI #### Point of Care testing , Mean Corpuscular HGB Conc 32.5 g/dL Normal 32.5-35.6 [facility] Comment on above: Performed By: #### G MAURICIOLS #### Point of Care testing , Monocytes (Bld) [#/Vol] 0.8 10*3/uL Normal 0.0-0.8 [facility] Comment on above: Performed By: #### G MAURICIOLS #### Point of Care testing , Monocytes/100 WBC (Bld) 6.0 % Normal . [facility] Comment on above: Performed By: #### G MAURICIOLS #### Point of Care testing , Neutrophils (Bld) [#/Vol] 10.5 10*3/uL High 1.8-7.7 [facility] Comment on above: Performed By: #### G MAURICIOLS #### Point of Care testing , Neutrophils/100 WBC (Bld) 81.1 % Normal . [facility] Comment on above: Performed By: #### G LULS #### Point of Care testing , NRBC% 0.0 /100{WBC} Normal 0-0.5 [facility] Comment on above: Performed By: #### G LULS #### Point of Care testing , Platelet mean volume (Bld) [Entitic vol] 6.4 fL Low 6.6-10.1 [facility] Comment on above: Performed By: #### G MAURICIOLS #### Point of Care testing , Platelets (Bld) [#/Vol] 339 10*3/uL Normal 150-450 [facility] Comment on above: Performed By: #### G LULS #### Point of Care testing , RBC (Bld) [#/Vol] 3.62 10*6/uL Low 3.90-5.60 [facility] Comment on above: Performed By: #### G MAURICIOLS #### Point of Care testing , WBC (Bld) [#/Vol] 12.9 10*3/uL High 4.1-10.5 [facility] Comment on above: Performed By: #### G MAURICIOLS #### Point of Care testing , Glucose Poct Glucometerson 1 04-13-2022 Commemt1 Glu2: Cleaned Meter Normal [facility] Comment on above: Result Comment: PERF ORMED BY: [facility] [address] [place] [address] PATHOLOGIST DRUG ABUSE PROGRAM COORDINATOR FARRAH PAUL M.D. Performed By: #### G LULS #### Point of Care testing , Glucose [Mass/Vol] 174 mg/dL Normal [facility] Comment on above: Result Comment: [place] om Glucose Reference Range is dependent on time and content of last meal. Glucose of more than 200 mg/dL in a nonstressed, ambulatory subject supports the diagnosis of Diabetes Mellitus. Performed By: #### G LULS #### Point of Care testing , Glucose [Mass/Vol] 182 mg/dL Normal [facility] Comment on above: Result Comment: [place] om Glucose Reference Range is dependent on time and content of last meal. Glucose of more than 200 mg/dL in a nonstressed, ambulatory subject supports the diagnosis of Diabetes Mellitus. PERFORMED BY: [address] [address] PATHOLOGIST DRUG ABUSE PROGRAM COORDINATOR FARRAH PAUL M.D. Performed By: #### G LULS #### Point of Care testing , Commemt1 Glu2: Cleaned Meter [facility] Comment on above: Result Comment: PERF ORMED BY: [address] [place] [address] PATHOLOGIST DRUG ABUSE PROGRAM COORDINATOR FARRAH PAUL M.D. Performed By: #### G LULS #### Point of Care testing , Glucose [Mass/Vol] 169 mg/dL Normal [facility] Comment on above: Result Comment: [place] om Glucose Reference Range is dependent on time and content of last meal. Glucose of more than 200 mg/dL in a nonstressed, ambulatory subject supports the diagnosis of Diabetes Mellitus. Performed By: #### G LULS #### Point of Care testing , Glucose [Mass/Vol] 144 mg/dL Normal [facility] Comment on above: Result Comment: [place] om Glucose Reference Range is dependent on time and content of last meal. Glucose of more than 200 mg/dL in a nonstressed, ambulatory subject supports the diagnosis of Diabetes Mellitus. PERFORMED BY: [address] [place] [address] PATHOLOGIST DRUG ABUSE PROGRAM COORDINATOR FARRAH PAUL M.D. Performed By: #### G LULS #### Point of Care testing , Commemt1 Glu2: Cleaned Meter [facility] Comment on above: Result Comment: PERF ORMED BY: [address] [place] [address] PATHOLOGIST DRUG ABUSE PROGRAM COORDINATOR FARRAH PAUL M.D. Performed By: #### G LULS #### Point of Care testing , Glucose [Mass/Vol] 125 mg/dL Normal [facility] Comment on above: Result Comment: [place] om Glucose Reference Range is dependent on [...] RESISTANT TO ALL B-LACTAM DRUGS. PERFORMED BY: [place] [address] [place] [address] PATHOLOGIST DRUG ABUSE PROGRAM COORDINATOR FARRAH PAUL M.D. Normal [facility] Comment on above: Performed By: #### G MAURICIOLS #### Point of Care testing , Basic Metabolic Panelon 01-27 Anion gap [Moles/Vol] 10.1 mmol/L Normal 6.0-15.0 [facility] Comment on above: Performed By: #### G LULS #### Point of Care testing , Calcium [Mass/Vol] 8.1 mg/dL Low 8.6-10.[address] [facility] Comment on above: Performed By: #### G MAURICIOLS #### Point of Care testing , Chloride [Moles/Vol] 106 mmol/L Normal 98-107 [facility] Comment on above: Performed By: #### G LULS #### Point of Care testing , CO2 [Moles/Vol] 25.3 mmol/L Normal 21.0-31.0 [facility] Comment on above: Performed By: #### G LULS #### Point of Care testing , Creatinine [Mass/Vol] 1.21 mg/dL Normal 0.70-1.30 [facility] Comment on above: Performed By: #### G LULS #### Point of Care testing , Creatinine Clr Calc Pharmacy 80.32 Normal [facility] Comment on above: Result Comment: PERF ORMED BY: [facility] [address] [place] [address] PATHOLOGIST DRUG ABUSE PROGRAM COORDINATOR FARRAH PAUL M.D. Performed By: #### G LULS #### Point of Care testing , GFR/1.73 sq M.predicted MDRD (S/P/Bld) [Vol rate/Area] mL/min/{1.73_m2} Normal [facility] Comment on above: Performed By: #### G LULS #### Point of Care testing , Glucose [Mass/Vol] 109 mg/dL High 70-[address] [facility] Comment on above: Result Comment: [facility] [place] Glucose Reference Range is dependent on time and content of last meal. Glucose of more than 200 mg/dL in a nonstressed, ambulatory subject supports the diagnosis of Diabetes Mellitus. ADA recommended reference range Performed By: #### G LULS #### Point of Care testing , Potassium [Moles/Vol] 4.4 mmol/L Normal 3.5-5.1 [facility] Comment on above: Performed By: #### G LULS #### Point of Care testing , Sodium [Moles/Vol] 137 mmol/L Normal 136-[address] [facility] Comment on above: Performed By: #### G LULS #### Point of Care testing , Urea nitrogen [Mass/Vol] 20 mg/dL Normal 7-25 [facility] Comment on above: Performed By: #### G LULS #### Point of Care testing , Coagulation Profileon 2022 aPTT Coag (Bld) [Time] 30.4 s Normal 25.1-36.5 [facility] Comment on above: Result Comment: A he matocrit value greater than 55% may lead to inaccurate results in coagulation testing. Patients having hematocrit values >55% require a special collection tube for coagulation studies. Please contact the laboratory at [phone] for redraw instructions. PERFORMED BY: [facility] [address] [place] [address] PATHOLOGIST DRUG ABUSE PROGRAM COORDINATOR FARRAH PAUL M.D. Performed By: #### G LULS #### Point of Care testing , INR Coag (PPP) [Relative time] 1.2 {INR} Normal [facility] Comment on above: Result Comment: INR Therapeutic [...] Coag (PPP) [Time] 14.0 s High 9.0-12.9 [facility] Comment on above: Result Comment: A he matocrit value greater than 55% may lead to inaccurate results in coagulation testing. Patients having hematocrit values >55% require a special collection tube for coagulation studies. Please contact the laboratory at [phone] for redraw instructions. Performed By: #### G LULS #### Point of Care testing , Complete Blood Count Auto Di ffon 02-10-2023 Basophils (Bld) [#/Vol] 0.0 10*3/uL Normal 0.0-0.2 [facility] Comment on above: Result Comment: PERF ORMED BY: [facility] [address] [place] [address] PATHOLOGIST DRUG ABUSE PROGRAM COORDINATOR FARRAH PAUL M.D. Performed By: #### G LULS #### Point of Care testing , Basophils/100 WBC (Bld) 0.3 % Normal . [facility] Comment on above: Performed By: #### G MAURICIOLS #### Point of Care testing , Eosinophils (Bld) [#/Vol] 0.8 10*3/uL High 0.0-0.45 [facility] Comment on above: Performed By: #### G MAURICIOLS #### Point of Care testing , Eosinophils/100 WBC (Bld) 7.1 % Normal . [facility] Comment on above: Performed By: #### G MAURICIOLS #### Point of Care testing , Erythrocyte distribution width (RBC) [Ratio] 15.2 % High 12.0-14.8 [facility] Comment on above: Performed By: #### G BHARATI #### Point of Care testing , Hematocrit (Bld) [Volume fraction] 24.8 % Low 38.8-50.0 [facility] Comment on above: Performed By: #### G MAURICIOLS #### Point of Care testing , Hemoglobin (Bld) [Mass/Vol] 8.2 g/dL Low 13.0-17.0 [facility] Comment on above: Performed By: #### G BHARATI #### Point of Care testing , Lymphocytes (Bld) [#/Vol] 1.5 10*3/uL Normal 1.00-4.8 [facility] Comment on above: Performed By: #### G BHARATI #### Point of Care testing , Lymphocytes/100 WBC (Bld) 13.9 % Normal . [facility] Comment on above: Performed By: #### Eros CALABRESE #### Point of Care testing , MCH (RBC) [Entitic mass] 25.7 pg Low 27.5-35.2 [facility] Comment on above: Performed By: #### G BHARATI #### Point of Care testing , MCV (RBC) [Entitic vol] 78.1 fL Low 83.5-101 [facility] Comment on above: Performed By: #### G BHARATI #### Point of Care testing , Mean Corpuscular HGB Conc 32.9 g/dL Normal 32.5-35.6 [facility] Comment on above: Performed By: #### Eros CALABRESE #### Point of Care testing , Monocytes (Bld) [#/Vol] 0.9 10*3/uL High 0.0-0.8 [facility] Comment on above: Performed By: #### Eros CALABRESE #### Point of Care testing , Monocytes/100 WBC (Bld) 8.3 % Normal . [facility] Comment on above: Performed By: #### Eros CALABRESE #### Point of Care testing , Neutrophils (Bld) [#/Vol] 7.5 10*3/uL Normal 1.8-7.7 [facility] Comment on above: Performed By: #### Eros CALABRESE #### Point of Care testing , Neutrophils/100 WBC (Bld) 70.4 % Normal . [facility] Comment on above: Performed By: #### Eros CALABRESE #### Point of Care testing , NRBC% 0.1 /100{WBC} Normal 0-0.5 [facility] Comment on above: Performed By: #### Eros CALABRESE #### Point of Care testing , Platelet mean volume (Bld) [Entitic vol] 6.3 fL Low 6.6-10.1 [facility] Comment on above: Performed By: #### Eros CALABRESE #### Point of Care testing , Platelets (Bld) [#/Vol] 318 10*3/uL Normal 150-450 [facility] Comment on above: Performed By: #### Eros CALABRESE #### Point of Care testing , RBC (Bld) [#/Vol] 3.18 10*6/uL Low 3.90-5.60 [facility] Comment on above: Performed By: #### Eros CALABRESE #### Point of Care testing , WBC (Bld) [#/Vol] 10.7 10*3/uL High 4.1-10.5 [facility] Comment on above: Performed By: #### Eros CALABRESE #### Point of Care testing , ECG 12 lead ECG 02-10-2023 ECG 12 lead ECG [facility] Main [place] [address] [place] [address] Electrocardiograph Report Signed Patient: Ganga Stinson MR#: [id number] : 1960 Acct:[id number] Age/Sex: 62 / M ADM Date: 02/06/23 Loc: Room: [address] [place] [address] Type: ADM IN Attending Dr: Suzy Douglas [...] change was found Confirmed by DOMENICA NAZARIO [facility] ([id number] on 02/10/2023 12:17:27 PM Referred By: Electronically Signed By:PARVIN PASCUAL MD [facility] Transcribed By: MUS Signed By Rafi Pascual MD 02/10/23 1217 [facility] Glucose Poct Glucometerson 1 04-12-2022 Glucose [Mass/Vol] 83 mg/dL [facility] Comment on above: Result Comment: [place] Glucose Reference Range is dependent on time and content of last meal. Glucose of more than 200 mg/dL in a nonstressed, ambulatory subject supports the diagnosis of Diabetes Mellitus. PERFORMED BY: [address] [place] [address] PATHOLOGIST DRUG ABUSE PROGRAM COORDINATOR FARRAH PAUL M.D. Performed By: #### G LULS #### Point of Care testing , Commemt1 Glu2: Cleaned Meter [facility] Comment on above: Result Comment: PERF ORMED BY: [facility] [address] [place] [address] PATHOLOGIST DRUG ABUSE PROGRAM COORDINATOR FARRAH PAUL M.D. Performed By: #### G LULS #### Point of Care testing , Glucose [Mass/Vol] 79 mg/dL Normal [facility] Comment on above: Result Comment: [place] om Glucose Reference Range is dependent on time and content of last meal. Glucose of more than 200 mg/dL in a nonstressed, ambulatory subject supports the diagnosis of Diabetes Mellitus. Performed By: #### G LULS #### Point of Care testing , Glucose [Mass/Vol] 82 mg/dL Normal [facility] Comment on above: Result Comment: [place] om Glucose Reference Range is dependent on time and content of last meal. Glucose of more than 200 mg/dL in a nonstressed, ambulatory subject supports the diagnosis of Diabetes Mellitus. [address]FORMED BY: [address] [place] [id number] PATHOLOGIST DRUG ABUSE PROGRAM COORDINATOR FARRAH PAUL M.D. Performed By: #### G LULS #### Point of Care testing , Glucose [Mass/Vol] 98 mg/dL Normal [facility] Comment on above: Result Comment: [place] Glucose Reference Range is dependent on time and content of last meal. Glucose of more than 200 mg/dL in a nonstressed, ambulatory subject supports the diagnosis of Diabetes Mellitus. PERFORMED BY: [address] [place] [address] PATHOLOGIST DRUG ABUSE PROGRAM COORDINATOR FARRAH PAUL M.D. Performed By: #### G LULS #### Point of Care testing , Glucose [Mass/Vol] 119 mg/dL Normal [facility] Comment on above: Result Comment: [facility] Glucose Reference Range is dependent on time and content of last meal. Glucose of more than 200 mg/dL in a nonstressed, ambulatory subject supports the diagnosis of Diabetes Mellitus. PERFORMED BY: [facility] [address] [place] [address] PATHOLOGIST DRUG ABUSE PROGRAM COORDINATOR FARRAH PAUL M.D. Performed By: #### G LULS #### Point of Care testing , Gram Stainon 02-10-2023 Microscopic observation Gram stain Nom (Unsp spec) Comment deep wound culture Gram Stain Result 1+ White Blood Cells Rare Gram Positive Cocci PERFORMED BY: [facility] [address] [place] [address] PATHOLOGIST DRUG ABUSE PROGRAM COORDINATOR FARRAH PAUL M.D. [facility] Comment on above: Performed By: #### G BHARATI #### Point of Care testing , Martín 02-10-2023 L ------- Specimen: [id number] Received: 02/11/23 Status: ROSIO Hermosillochristofer Num: [id number] Spec Type: Surgical Subm Dr: Jonathan Moffett DPM Tissues: A DIGIT AMPUTATION (LT 4TH/5TH TOE/NEC TISSUE) Procedures: HE/2, Gross/Micro L4, Decalcification Age/ Patient Sex Location Account Attending Physician Ganga Stinson/Sam [id number] Suzy Douglas MD SPEC NUM: [id number] RECD: 02/11/23 STATUS: ROSIO RAJPUT NUM: [id number] NAYLA: 02/10/23- SUBM DR: Jonathan Moffett DPM [...] pardo-white to black-brown, heterogeneous, diffluent, soft tissue. Floor Runner sections are submitted in two cassettes labeled as follows: A1 resection margins of left metatarsals four and five, en face, following fixation and decalcification, A2 door to door sales representative sections of possible gangrenous soft tissue. Specimen: [id number] Received: 02/11/23 Status: ROSIO Rajput Num: [id number] Spec Type: Surgical Subm Dr: Jonathan Moffett DPM Tissues: A DIGIT AMPUTATION (LT 4TH/5TH TOE/NEC TISSUE) Procedures: HE/2, Gross/Micro L4, Decalcification Patient: Ganga Stinson Cristina [id number] (Continued) Specimen: [id number] Received: 02/11/23 (Continued) Signed (signature on file) Parag Buenrostro MD 02/12/23 1144 Specimen: [id number] Received: 02/11/23 Status: ROSIO Rajput Num: [id number] Spec Type: Surgical Subm Dr: ZANDER Lowe Tissues: A DIGIT AMPUTATION (LT 4TH/5TH TOE/NEC TISSUE) Procedures: HE/2, Gross/Micro L4, Decalcification Patient: Ganga Stinson [id number] (Continued) Specimen: [id number] Received: 02/11/23 (Continued) CPT Codes 55578 Specimen: [id number] Received: 02/11/23 Status: ROSIO Rajput Num: [id number] Spec Type: Surgical Subm Dr: Jonathan Moffett DPM Tissues: A DIGIT AMPUTATION (LT 4TH/5TH TOE/NEC TISSUE) Procedures: HE/2, Gross/Micro L4, Decalcification Patient: Ganga Stinson [id number] (Continued) Signed (signature on file) Parag Buenrostro MD 02/12/23 1144 [facility] LeukoReduced RBCon 3 LeukoReduced RBC TRANSFUSED 02/10/23 1339 [facility] Type and Screenon 02-10-2023 ABO and Rh group Nom (Bld) Blood group A Rh(D) negative [facility] Comment on above: Order Comment: Trans fuse now? Y Number of units to transfuse now? 1 Result Comment: PERF ORMED BY: [address] [address] PATHOLOGIST DRUG ABUSE PROGRAM COORDINATOR FARRAH PAUL M.D. XR foot LT 2Von 02-10-2023 XR foot LT 2V [facility] Main [place] [address] [place] [address] XRay Report Signed Patient: Ganga Stinson MR#: [id number] : 1960 Acct:[id number] Age/Sex: 62 / M ADM Date: 02/06/23 Loc: Room: [address] [place] [address] Type: ADM IN Attending Dr: Suzy Douglas [...] Canelo Red M.D.02/10/2023 9:36 PM Dictation Location: [place] [address] Transcribed By: [facility] 02/10/232135 Dictated By: Canelo Red II, MD 02/10/232133 Signed By: 02/10/232135 Normal [facility] Basic Metabolic Panelon 01-27 Anion gap [Moles/Vol] 8.5 mmol/L Normal 6.0-15.0 [facility] Comment on above: Performed By: #### G BHARATI #### Point of Care testing , Calcium [Mass/Vol] 7.9 mg/dL Low 8.6-10.[address] [facility] Comment on above: Performed By: #### G BHARATI #### Point of Care testing , Chloride [Moles/Vol] 106 mmol/L Normal 98-107 [facility] Comment on above: Performed By: #### G MAURICIOLS #### Point of Care testing , CO2 [Moles/Vol] 24.9 mmol/L Normal 21.0-31.0 [facility] Comment on above: Performed By: #### G BHARATI #### Point of Care testing , Creatinine [Mass/Vol] 1.20 mg/dL Normal 0.70-1.30 [facility] Comment on above: Performed By: #### G LULS #### Point of Care testing , Creatinine Clr Calc Pharmacy 82.31 Normal [facility] Comment on above: Result Comment: PERF ORMED BY: [facility] [address] [place] [address] PATHOLOGIST DRUG ABUSE PROGRAM COORDINATOR FARRAH PAUL M.D. Performed By: #### G LULS #### Point of Care testing , GFR/1.73 sq M.predicted MDRD (S/P/Bld) [Vol rate/Area] mL/min/{1.73_m2} Normal [facility] Comment on above: Performed By: #### G LULS #### Point of Care testing , Glucose [Mass/Vol] 181 mg/dL High 70-[address] [facility] Comment on above: Result Comment: [facility] Glucose Reference Range is dependent on time and content of last meal. Glucose of more than 200 mg/dL in a nonstressed, ambulatory subject supports the diagnosis of Diabetes Mellitus. ADA recommended reference range Performed By: #### G LULS #### Point of Care testing , Potassium [Moles/Vol] 4.4 mmol/L Normal 3.5-5.1 [facility] Comment on above: Performed By: #### G LULS #### Point of Care testing , Sodium [Moles/Vol] 135 mmol/L Low 136-[address] [facility] Comment on above: Performed By: #### G LULS #### Point of Care testing , Urea nitrogen [Mass/Vol] 18 mg/dL Normal 7-25 [facility] Comment on above: Performed By: #### G LULS #### Point of Care testing , Complete Blood Count Auto Di ffon 02-09-2023 Basophils (Bld) [#/Vol] 0.1 10*3/uL Normal 0.0-0.2 [facility] Comment on above: Result Comment: PERF ORMED BY: [facility] [address] [place] [address] PATHOLOGIST DRUG ABUSE PROGRAM COORDINATOR FARRAH PAUL M.D. Performed By: #### G LULS #### Point of Care testing , Basophils/100 WBC (Bld) 1.1 % Normal . [facility] Comment on above: Performed By: #### G BHARATI #### Point of Care testing , Eosinophils (Bld) [#/Vol] 0.6 10*3/uL High 0.0-0.45 [facility] Comment on above: Performed By: #### G MAURICIOLS #### Point of Care testing , Eosinophils/100 WBC (Bld) 5.6 % Normal . [facility] Comment on above: Performed By: #### G MAURICIOLS #### Point of Care testing , Erythrocyte distribution width (RBC) [Ratio] 15.0 % High 12.0-14.8 [facility] Comment on above: Performed By: #### G MAURICIOLS #### Point of Care testing , Hematocrit (Bld) [Volume fraction] 24.1 % Low 38.8-50.0 [facility] Comment on above: Performed By: #### G MAURICIOLS #### Point of Care testing , Hemoglobin (Bld) [Mass/Vol] 7.8 g/dL Low 13.0-17.0 [facility] Comment on above: Performed By: #### G BHARATI #### Point of Care testing , Lymphocytes (Bld) [#/Vol] 1.3 10*3/uL Normal 1.00-4.8 [facility] Comment on above: Performed By: #### G MAURICIOLS #### Point of Care testing , Lymphocytes/100 WBC (Bld) 11.7 % Normal . [facility] Comment on above: Performed By: #### G MAURICIOLS #### Point of Care testing , MCH (RBC) [Entitic mass] 25.6 pg Low 27.5-35.2 [facility] Comment on above: Performed By: #### G MAURICIOLS #### Point of Care testing , MCV (RBC) [Entitic vol] 78.8 fL Low 83.5-101 [facility] Comment on above: Performed By: #### G MAURICIOLS #### Point of Care testing , Mean Corpuscular HGB Conc 32.5 g/dL Normal 32.5-35.6 [facility] Comment on above: Performed By: #### G BHARATI #### Point of Care testing , Monocytes (Bld) [#/Vol] 0.7 10*3/uL Normal 0.0-0.8 [facility] Comment on above: Performed By: #### Eros CALABRESE #### Point of Care testing , Monocytes/100 WBC (Bld) 6.5 % Normal . [facility] Comment on above: Performed By: #### Eros MARTÍNEZLS #### Point of Care testing , Neutrophils (Bld) [#/Vol] 8.1 10*3/uL High 1.8-7.7 [facility] Comment on above: Performed By: #### Eros CALABRESE #### Point of Care testing , Neutrophils/100 WBC (Bld) 75.1 % Normal . [facility] Comment on above: Performed By: #### Eros CALABRESE #### Point of Care testing , NRBC% 0.0 /100{WBC} Normal 0-0.5 [facility] Comment on above: Performed By: #### Eros CALABRESE #### Point of Care testing , Platelet mean volume (Bld) [Entitic vol] 6.3 fL Low 6.6-10.1 [facility] Comment on above: Performed By: #### Eros CALABRESE #### Point of Care testing , Platelets (Bld) [#/Vol] 311 10*3/uL Normal 150-450 [facility] Comment on above: Performed By: #### Eros CALABRESE #### Point of Care testing , RBC (Bld) [#/Vol] 3.05 10*6/uL Low 3.90-5.60 [facility] Comment on above: Performed By: #### Eros CALABRESE #### Point of Care testing , WBC (Bld) [#/Vol] 10.8 10*3/uL High 4.1-10.5 [facility] Comment on above: Performed By: #### Eros CALABRESE #### Point of Care testing , Glucose Poct Glucometerson 1 04-11-2022 Glucose [Mass/Vol] 254 mg/dL Normal [facility] Comment on above: Result Comment: [place] om Glucose Reference Range is dependent on time and content of last meal. Glucose of more than 200 mg/dL in a nonstressed, ambulatory subject supports the diagnosis of Diabetes Mellitus. PERFORMED BY: [address] [place] [address] PATHOLOGIST DRUG ABUSE PROGRAM COORDINATOR FARRAH PAUL M.D. Performed By: #### G LULS #### Point of Care testing , Glucose [Mass/Vol] 224 mg/dL Normal [facility] Comment on above: Result Comment: [place] om Glucose Reference Range is dependent on time and content of last meal. Glucose of more than 200 mg/dL in a nonstressed, ambulatory subject supports the diagnosis of Diabetes Mellitus. PERFORMED BY: [address] [place] [address] PATHOLOGIST DRUG ABUSE PROGRAM COORDINATOR FARRAH PAUL M.D. Performed By: #### G LULS #### Point of Care testing , Glucose [Mass/Vol] 184 mg/dL Normal [facility] Comment on above: Result Comment: [place] om Glucose Reference Range is dependent on time and content of last meal. Glucose of more than 200 mg/dL in a nonstressed, ambulatory subject supports the diagnosis of Diabetes Mellitus. PERFORMED BY: [address] [place] [address] PATHOLOGIST DRUG ABUSE PROGRAM COORDINATOR FARRAH PAUL M.D. Performed By: #### G LULS #### Point of Care testing , Glucose [Mass/Vol] 159 mg/dL Normal [facility] Comment on above: Result Comment: [place] Glucose Reference Range is dependent on time and content of last meal. Glucose of more than 200 mg/dL in a nonstressed, ambulatory subject supports the diagnosis of Diabetes Mellitus. PERFORMED BY: [address] [place] [address] PATHOLOGIST DRUG ABUSE PROGRAM COORDINATOR FARRAH PAUL M.D. Performed By: #### G LULS #### Point of Care testing , Hemoglobin and Hematocriton 02-09-2023 Hematocrit (Bld) [Volume fraction] 25.1 % Low 38.8-50.0 [facility] Comment on above: Result Comment: PERF ORMED BY: [address] [address] PATHOLOGIST DRUG ABUSE PROGRAM COORDINATOR FARRAH PAUL M.D. Performed By: #### G LULS #### Point of Care testing , Hemoglobin (Bld) [Mass/Vol] 8.2 g/dL Low 13.0-17.0 [facility] Comment on above: Performed By: #### G LULS #### Point of Care testing , US arterial pvr rest Brennen US arterial pvr rest [facility] Main [address] [address] Ultrasound Report Signed Patient: Ganga Stinson MR#: [id number] : 1960 Acct:[id number] Age/Sex: 62 / M ADM Date: 02/06/23 Loc: Room: [address] [place] [address] Type: ADM IN Attending Dr: Suzy Douglas [...] Jesusita Navarro MD02/09/2023 12:18 PM Dictation Location: [place] [address] Tech: Coni Saenz Transcribed By: MARYANN 02/09/231217 Dictated By: Jesusita Navarro MD 02/09/231216 Signed By: 02/09/231217 [facility] Basic Metabolic Panelon 01-27 Anion gap [Moles/Vol] 11.3 mmol/L Normal 6.0-15.0 [facility] Comment on above: Performed By: #### G MAURICIOLS #### Point of Care testing , Calcium [Mass/Vol] 8.3 mg/dL Low 8.6-10.[address] [facility] Comment on above: Performed By: #### G MAURICIOLS #### Point of Care testing , Chloride [Moles/Vol] 110 mmol/L High 98-107 [facility] Comment on above: Performed By: #### G MAURICIOLS #### Point of Care testing , CO2 [Moles/Vol] 21.0 mmol/L Normal 21.0-31.0 [facility] Comment on above: Performed By: #### G MAURICIOLS #### Point of Care testing , Creatinine [Mass/Vol] 1.24 mg/dL Normal 0.70-1.30 [facility] Comment on above: Performed By: #### G LULS #### Point of Care testing , Creatinine Clr Calc Pharmacy 79.62 [facility] Comment on above: Performed By: #### G LULS #### Point of Care testing , GFR/1.73 sq M.predicted MDRD (S/P/Bld) [Vol rate/Area] mL/min/{1.73_m2} [facility] Comment on above: Performed By: #### G LULS #### Point of Care testing , Glucose [Mass/Vol] 86 mg/dL Normal 70-[address] [facility] Comment on above: Result Comment: [place] Glucose Reference Range is dependent on time and content of last meal. Glucose of more than 200 mg/dL in a nonstressed, ambulatory subject supports the diagnosis of Diabetes Mellitus. ADA recommended reference range Performed By: #### G LULS #### Point of Care testing , Potassium [Moles/Vol] 4.3 mmol/L Normal 3.5-5.1 [facility] Comment on above: Performed By: #### G LULS #### Point of Care testing , Sodium [Moles/Vol] 138 mmol/L Normal 136-[address] [facility] Comment on above: Performed By: #### G LULS #### Point of Care testing , Urea nitrogen [Mass/Vol] 21 mg/dL Normal 7-25 [facility] Comment on above: Performed By: #### G LULS #### Point of Care testing , Complete Blood Count Auto Di ffon 02-08-2023 Basophils (Bld) [#/Vol] 0.0 10*3/uL Normal 0.0-0.2 [facility] Comment on above: Result Comment: PERF ORMED BY: [facility] [address] [place] [address] PATHOLOGIST DRUG ABUSE PROGRAM COORDINATOR FARRAH PAUL M.D. Performed By: #### G LULS #### Point of Care testing , Basophils/100 WBC (Bld) 0.4 % Normal . [facility] Comment on above: Performed By: #### G MAURICIOLS #### Point of Care testing , Eosinophils (Bld) [#/Vol] 0.6 10*3/uL High 0.0-0.45 [facility] Comment on above: Performed By: #### G MAURICIOLS #### Point of Care testing , Eosinophils/100 WBC (Bld) 5.8 % Normal . [facility] Comment on above: Performed By: #### G MAURICIOLS #### Point of Care testing , Erythrocyte distribution width (RBC) [Ratio] 15.2 % High 12.0-14.8 [facility] Comment on above: Performed By: #### G LULS #### Point of Care testing , Hematocrit (Bld) [Volume fraction] 25.0 % Low 38.8-50.0 [facility] Comment on above: Performed By: #### G MAURICIOLS #### Point of Care testing , Hemoglobin (Bld) [Mass/Vol] 8.1 g/dL Low 13.0-17.0 [facility] Comment on above: Performed By: #### G MAURICIOLS #### Point of Care testing , Lymphocytes (Bld) [#/Vol] 1.5 10*3/uL Normal 1.00-4.8 [facility] Comment on above: Performed By: #### G MAURICIOLS #### Point of Care testing , Lymphocytes/100 WBC (Bld) 14.3 % Normal . [facility] Comment on above: Performed By: #### Eros CALABRESE #### Point of Care testing , MCH (RBC) [Entitic mass] 25.5 pg Low 27.5-35.2 [facility] Comment on above: Performed By: #### Eros MARTÍNEZLS #### Point of Care testing , MCV (RBC) [Entitic vol] 78.6 fL Low 83.5-101 [facility] Comment on above: Performed By: #### Eros MARTÍNEZLS #### Point of Care testing , Mean Corpuscular HGB Conc 32.5 g/dL Normal 32.5-35.6 [facility] Comment on above: Performed By: #### Eros CALABRESE #### Point of Care testing , Monocytes (Bld) [#/Vol] 0.9 10*3/uL High 0.0-0.8 [facility] Comment on above: Performed By: #### Eros MARTÍNEZLS #### Point of Care testing , Monocytes/100 WBC (Bld) 9.0 % Normal . [facility] Comment on above: Performed By: #### Eros CALABRESE #### Point of Care testing , Neutrophils (Bld) [#/Vol] 7.3 10*3/uL Normal 1.8-7.7 [facility] Comment on above: Performed By: #### G MAURICIOLS #### Point of Care testing , Neutrophils/100 WBC (Bld) 70.5 % Normal . [facility] Comment on above: Performed By: #### Eros MARTÍNEZLS #### Point of Care testing , NRBC% 0.0 /100{WBC} Normal 0-0.5 [facility] Comment on above: Performed By: #### G LULS #### Point of Care testing , Platelet mean volume (Bld) [Entitic vol] 6.5 fL Low 6.6-10.1 [facility] Comment on above: Performed By: #### G LULS #### Point of Care testing , Platelets (Bld) [#/Vol] 308 10*3/uL Normal 150-450 [facility] Comment on above: Performed By: #### G LULS #### Point of Care testing , RBC (Bld) [#/Vol] 3.18 10*6/uL Low 3.90-5.60 [facility] Comment on above: Performed By: #### G LULS #### Point of Care testing , WBC (Bld) [#/Vol] 10.4 10*3/uL Normal 4.1-10.5 [facility] Comment on above: Performed By: #### G LULS #### Point of Care testing , Glucose Poct Glucometerson 04-10-2022 Glucose [Mass/Vol] 202 mg/dL Normal [facility] Comment on above: Result Comment: [facility] Glucose Reference Range is dependent on time and content of last meal. Glucose of more than 200 mg/dL in a nonstressed, ambulatory subject supports the diagnosis of Diabetes Mellitus. PERFORMED BY: [address] [place] [id number] PATHOLOGIST DRUG ABUSE PROGRAM COORDINATOR FARRAH PAUL M.D. Performed By: #### G LULS #### Point of Care testing , Glucose [Mass/Vol] 192 mg/dL Normal [facility] Comment on above: Result Comment: [facility] Glucose Reference Range is dependent on time and content of last meal. Glucose of more than 200 mg/dL in a nonstressed, ambulatory subject supports the diagnosis of Diabetes Mellitus. PERFORMED BY: [facility] [address] [address] PATHOLOGIST DRUG ABUSE PROGRAM COORDINATOR FARRAH PAUL M.D. Performed By: #### G LULS #### Point of Care testing , Commemt1 Glu2: Cleaned Meter [facility] Comment on above: Result Comment: PERF ORMED BY: [place] [address] PATHOLOGIST DRUG ABUSE PROGRAM COORDINATOR FARRAH PAUL M.D. Performed By: #### G LULS #### Point of Care testing , Glucose [Mass/Vol] 184 mg/dL Normal [facility] Comment on above: Result Comment: [place] Glucose Reference Range is dependent on time and content of last meal. Glucose of more than 200 mg/dL in a nonstressed, ambulatory subject supports the diagnosis of Diabetes Mellitus. Performed By: #### G LULS #### Point of Care testing , Commemt1 Glu2: Cleaned Meter [facility] Comment on above: Result Comment: PERF ORMED BY: [place] [address] PATHOLOGIST DRUG ABUSE PROGRAM COORDINATOR FARRAH PAUL M.D. Performed By: #### G LULS #### Point of Care testing , Glucose [Mass/Vol] 95 mg/dL Normal [facility] Comment on above: Result Comment: [place] Glucose Reference Range is dependent on time and content of last meal. Glucose of more than 200 mg/dL in a nonstressed, ambulatory subject supports the diagnosis of Diabetes Mellitus. Performed By: #### G LULS #### Point of Care testing , MR foot LT wo sury 02-09-20 MR foot LT wo con [facility] Main [place] [id number] MRI Report Signed Patient: Ganga Stinson MR#: [id number] : 1960 Acct:[id number] Age/Sex: 62 / M ADM Date: 02/06/23 Loc: Room: [address] [place] [address] Type: ADM IN Attending Dr: Suzy Douglas [...] Canelo Red M.D.02/08/2023 2:39 PM Dictation Location: [place] [address] Transcribed By: [facility] 02/08/23 143 Dictated By: Canelo Red II, MD 02/08/23 142 Signed By: 02/08/23 143 Normal [facility] Prealbuminon 02-08-2023 Prealbumin [Mass/Vol] 4.5 mg/dL Low 17.0-34.0 [facility] Comment on above: Result Comment: PERF ORMED BY: [facility] [address] [place] [address] PATHOLOGIST DRUG ABUSE PROGRAM COORDINATOR FARRAH PAUL M.D. Performed By: #### G LULS #### Point of Care testing , Basic Metabolic Panelon 01-27 Anion gap [Moles/Vol] 10.9 mmol/L Normal 6.0-15.0 [facility] Comment on above: Performed By: #### G LULS #### Point of Care testing , Calcium [Mass/Vol] 8.0 mg/dL Low 8.6-10.[address] [facility] Comment on above: Performed By: #### G LULS #### Point of Care testing , Chloride [Moles/Vol] 109 mmol/L High 98-107 [facility] Comment on above: Performed By: #### G LULS #### Point of Care testing , CO2 [Moles/Vol] 20.0 mmol/L Low 21.0-31.0 [facility] Comment on above: Performed By: #### G LULS #### Point of Care testing , Creatinine [Mass/Vol] 1.37 mg/dL High 0.70-1.30 [facility] Comment on above: Performed By: #### G LULS #### Point of Care testing , Creatinine Clr Calc Pharmacy 73.19 [facility] Comment on above: Performed By: #### G LULS #### Point of Care testing , GFR/1.73 sq M.predicted MDRD (S/P/Bld) [Vol rate/Area] 58.689 mL/min/{1.73_m2} Normal [facility] Comment on above: Performed By: #### G MAURICIOLS #### Point of Care testing , Glucose [Mass/Vol] 69 mg/dL Low 70-[address] [facility] Comment on above: Result Comment: [facility] Glucose Reference Range is dependent on time and content of last meal. Glucose of more than 200 mg/dL in a nonstressed, ambulatory subject supports the diagnosis of Diabetes Mellitus. ADA recommended reference range Performed By: #### G BHARATI #### Point of Care testing , Potassium [Moles/Vol] 3.9 mmol/L Normal 3.5-5.1 [facility] Comment on above: Performed By: #### G BHARATI #### Point of Care testing , Sodium [Moles/Vol] 136 mmol/L Normal 136-[address] [facility] Comment on above: Performed By: #### G BHARATI #### Point of Care testing , Urea nitrogen [Mass/Vol] 25 mg/dL Normal 7-25 [facility] Comment on above: Performed By: #### G BHARATI #### Point of Care testing , Anion gap [Moles/Vol] 9.4 mmol/L Normal 6.0-15.0 [facility] Comment on above: Performed By: #### B MP #### [facility] [address] Calcium [Mass/Vol] 8.0 mg/dL Low 8.6-10.[address] [facility] Comment on above: Performed By: #### B MP #### [facility] [address] [place] [address] [place] Chloride [Moles/Vol] 109 mmol/L High 98-107 [facility] Comment on above: Performed By: #### B MP #### [facility] [address] [place] [address] [place] CO2 [Moles/Vol] 20.6 mmol/L Low 21.0-31.0 [facility] Comment on above: Performed By: #### B MP #### [address] Creatinine [Mass/Vol] 1.43 mg/dL High 0.70-1.30 [facility] Comment on above: Performed By: #### B MP #### [place] [address] [place] Creatinine Clr Calc Pharmacy 70.27 Normal [facility] Comment on above: Result Comment: PERF ORMED BY: [place] [address] PATHOLOGIST DRUG ABUSE PROGRAM COORDINATOR FARRAH PAUL M.D. Performed By: #### B MP #### [place] [address] [place] GFR/1.73 sq M.predicted MDRD (S/P/Bld) [Vol rate/Area] 55.746 mL/min/{1.73_m2} Normal [facility] Comment on above: Performed By: #### B MP #### [address] Glucose [Mass/Vol] 136 mg/dL High 70-[address] [facility] Comment on above: Result Comment: [place] Glucose Reference Range is dependent on time and content of last meal. Glucose of more than 200 mg/dL in a nonstressed, ambulatory subject supports the diagnosis of Diabetes Mellitus. ADA recommended reference range Performed By: #### B MP #### [address] Potassium [Moles/Vol] 4.0 mmol/L Normal 3.5-5.1 [facility] Comment on above: Performed By: #### B MP #### [address] Sodium [Moles/Vol] 135 mmol/L Low 136-[address] [facility] Comment on above: Performed By: #### B MP #### [place] [address] [place] Urea nitrogen [Mass/Vol] 27 mg/dL High 7-25 [facility] Comment on above: Performed By: #### B MP #### [address] C-Reactive Proteinon 023 C-Reactive Protein 18.3 mg/dL High 0.0-0.[address] [facility] Comment on above: Result Comment: PERF ORMED BY: [place] [address] PATHOLOGIST DRUG ABUSE PROGRAM COORDINATOR FARRAH PAUL M.D. Performed By: #### G LULS #### Point of Care testing , Complete Blood Count Auto Di ffon 02-07-2023 Basophils (Bld) [#/Vol] 0.0 10*3/uL Normal 0.0-0.2 [facility] Comment on above: Result Comment: PERF ORMED BY: [place] [address] PATHOLOGIST DRUG ABUSE PROGRAM COORDINATOR FARRAH PAUL M.D. Performed By: #### G LULS #### Point of Care testing , Basophils/100 WBC (Bld) 0.3 % Normal . [facility] Comment on above: Performed By: #### G LULS #### Point of Care testing , Eosinophils (Bld) [#/Vol] 0.6 10*3/uL High 0.0-0.45 [facility] Comment on above: Performed By: #### G LULS #### Point of Care testing , Eosinophils/100 WBC (Bld) 5.2 % Normal . [facility] Comment on above: Performed By: #### G LULS #### Point of Care testing , Erythrocyte distribution width (RBC) [Ratio] 14.8 % Normal 12.0-14.8 [facility] Comment on above: Performed By: #### G LULS #### Point of Care testing , Hematocrit (Bld) [Volume fraction] 21.3 % Low 38.8-50.0 [facility] Comment on above: Performed By: #### G LULS #### Point of Care testing , Hemoglobin (Bld) [Mass/Vol] 6.9 g/dL Low 13.0-17.0 [facility] Comment on above: Performed By: #### Eros CALABRESE #### Point of Care testing , Lymphocytes (Bld) [#/Vol] 1.6 10*3/uL Normal 1.00-4.8 [facility] Comment on above: Performed By: #### Eros MARTÍNEZLS #### Point of Care testing , Lymphocytes/100 WBC (Bld) 13.5 % Normal . [facility] Comment on above: Performed By: #### Eros MARTÍNEZLS #### Point of Care testing , MCH (RBC) [Entitic mass] 25.4 pg Low 27.5-35.2 [facility] Comment on above: Performed By: #### Eros MARTÍNEZLS #### Point of Care testing , MCV (RBC) [Entitic vol] 78.4 fL Low 83.5-101 [facility] Comment on above: Performed By: #### Eros MARTÍNEZLS #### Point of Care testing , Mean Corpuscular HGB Conc 32.4 g/dL Low 32.5-35.6 [facility] Comment on above: Performed By: #### Eros CALABRESE #### Point of Care testing , Monocytes (Bld) [#/Vol] 1.1 10*3/uL High 0.0-0.8 [facility] Comment on above: Performed By: #### Eros CALABRESE #### Point of Care testing , Monocytes/100 WBC (Bld) 9.6 % Normal . [facility] Comment on above: Performed By: #### Eros CALABRESE #### Point of Care testing , Neutrophils (Bld) [#/Vol] 8.3 10*3/uL High 1.8-7.7 [facility] Comment on above: Performed By: #### Eros MARTÍNEZLS #### Point of Care testing , Neutrophils/100 WBC (Bld) 71.4 % Normal . [facility] Comment on above: Performed By: #### Eros CALABRESE #### Point of Care testing , NRBC% 0.0 /100{WBC} Normal 0-0.5 [facility] Comment on above: Performed By: #### G LULS #### Point of Care testing , Platelet mean volume (Bld) [Entitic vol] 6.5 fL Low 6.6-10.1 [facility] Comment on above: Performed By: #### G LULS #### Point of Care testing , Platelets (Bld) [#/Vol] 276 10*3/uL Normal 150-450 [facility] Comment on above: Performed By: #### G LULS #### Point of Care testing , RBC (Bld) [#/Vol] 2.71 10*6/uL Low 3.90-5.60 [facility] Comment on above: Performed By: #### G LULS #### Point of Care testing , WBC (Bld) [#/Vol] 11.7 10*3/uL High 4.1-10.5 [facility] Comment on above: Performed By: #### G LULS #### Point of Care testing , Glucose Poct Glucometerson 1 04-09-2022 Commemt1 Glu2: Cleaned Meter [facility] Comment on above: Result Comment: PERF ORMED BY: [address] [place] [address] PATHOLOGIST DRUG ABUSE PROGRAM COORDINATOR FARRAH PAUL M.D. Performed By: #### G LULS #### Point of Care testing , Glucose [Mass/Vol] 177 mg/dL Normal [facility] Comment on above: Result Comment: [facility] Glucose Reference Range is dependent on time and content of last meal. Glucose of more than 200 mg/dL in a nonstressed, ambulatory subject supports the diagnosis of Diabetes Mellitus. Performed By: #### G LULS #### Point of Care testing , Commemt1 Glu2: Cleaned Meter [facility] Comment on above: Result Comment: PERF ORMED BY: [facility] [address] [place] [address] PATHOLOGIST DRUG ABUSE PROGRAM COORDINATOR FARRAH PAUL M.D. Performed By: #### G LULS #### Point of Care testing , Glucose [Mass/Vol] 140 mg/dL Normal [facility] Comment on above: Result Comment: [place] om Glucose Reference Range is dependent on time and content of last meal. Glucose of more than 200 mg/dL in a nonstressed, ambulatory subject supports the diagnosis of Diabetes Mellitus. Performed By: #### G LULS #### Point of Care testing , Commemt1 Glu2: Cleaned Meter Normal [facility] Comment on above: Result Comment: PERF ORMED BY: [address] [place] [address] PATHOLOGIST DRUG ABUSE PROGRAM COORDINATOR FARRAH PAUL M.D. Performed By: #### G LULS #### Point of Care testing , Glucose [Mass/Vol] 136 mg/dL Normal [facility] Comment on above: Result Comment: [place] om Glucose Reference Range is dependent on time and content of last meal. Glucose of more than 200 mg/dL in a nonstressed, ambulatory subject supports the diagnosis of Diabetes Mellitus. Performed By: #### G LULS #### Point of Care testing , Glucose [Mass/Vol] 81 mg/dL Normal [facility] Comment on above: Result Comment: [place] om Glucose Reference Range is dependent on time and content of last meal. Glucose of more than 200 mg/dL in a nonstressed, ambulatory subject supports the diagnosis of Diabetes Mellitus. PERFORMED BY: [address] [place] [address] PATHOLOGIST DRUG ABUSE PROGRAM COORDINATOR FARRAH PAUL M.D. Performed By: #### G LULS #### Point of Care testing , Glucose [Mass/Vol] 167 mg/dL Normal [facility] Comment on above: Result Comment: [place] Glucose Reference Range is dependent on time and content of last meal. Glucose of more than 200 mg/dL in a nonstressed, ambulatory subject supports the diagnosis of Diabetes Mellitus. PERFORMED BY: [address] [place] [address] PATHOLOGIST DRUG ABUSE PROGRAM COORDINATOR FARRAH PAUL M.D. Performed By: #### G LULS #### Point of Care testing , Hemoglobin and Hematocriton 11-12-2023 Hematocrit (Bld) [Volume fraction] 22.1 % Low 38.8-50.0 [facility] Comment on above: Result Comment: PERF ORMED BY: [place] [address] [place] [address] PATHOLOGIST DRUG ABUSE PROGRAM COORDINATOR FARRAH PAUL M.D. Performed By: #### G LULS #### Point of Care testing , Hemoglobin (Bld) [Mass/Vol] 7.1 g/dL Low 13.0-17.0 [facility] Comment on above: Performed By: #### [...] RESISTANT TO ALL B-LACTAM DRUGS. PERFORMED BY: [facility] [address] [place] [address] PATHOLOGIST DRUG ABUSE PROGRAM COORDINATOR FARRAH PAUL M.D. [facility] Comment on above: Performed By: #### [...] RESISTANT TO ALL B-LACTAM DRUGS. PERFORMED BY: [facility] [address] [place] [address] PATHOLOGIST DRUG ABUSE PROGRAM COORDINATOR FARRAH PAUL M.D. [facility] Comment on above: Performed By: #### [...] you for choosing us for your care. [facility] Operative Reporton Operative Report [id number]#1.00TIFF [facility] Pre-Certification Formon Pre-Certification Form [id number]#1.00TIFF [facility] Insurance Correspondenceon 0 12-25-2022 Insurance Correspondence [id number]#1.00CD:127 [facility] Consent for Procedure/Surger yon 12-22-2022 Consent for Procedure/Surgery [id number]#1.00CD:127 Normal [facility] Consultation Noteon 11-11-19 Consultation Note [id number]#1.00CD:127 [facility] Lab Reportson 11-10-2022 Lab Reports [id number]#1.00CD:127 [facility] Operative Reporton Operative Report [id number]#1.00CD:127 [facility] RAD - Ultrasound Reporton RAD - Ultrasound Report [id number]#1.00CD:127 [facility] Ambulatory Visit Summaryon 0 11-09-2022 Ambulatory [...] Urology [address] [place] [address] [id number] Medications What How Much When Instructions Unchanged [...] these instructions at home: Medicines ? Take vkhv-uxc-lbqjhpr and prescription medicines only as told by your heal (more content not included)... Normal [facility] Patient Educationon 11-10-19 Patient Education Urology [...] these instructions at home: Medicines ? Take ahvv-tuf-tmjujij and prescription medicines only as told by [...] provider. Document Revised: 12/04/2020 Document Reviewed: 12/04/2020 [employer] Patient Education ? 2022 DJZ. [facility] Urology Office/Clinic Noteon 11-09-2022 Urology Office/Clinic Note HPI Staff Follow up to hospital consult 10/08/2022 due to cath insertion S/P cysto UD cath insertion 10/08/2022.... Pt is a new Pt last seen in our office 02/25/[address] Crockett due to NGB incomplete bladder and BPH Pt has been seeing Dr. Clarke ( [facility])for the last couple years last seen [...] bladder. Pt was seen in consult at [facility] on 10/08/22 for difficulty with catheter placement. [...] Will order Local anesthesia. Abx sent to [facility] in [place]. 2. Urethral stricture in male (N35.919: Unspecified [...] Urology [address], [place] [address] [phone] Additional Instructions: sched cysto Patient Education Acute [...] influenza vir (more content not included)... Normal [facility] Comment on above: Result Comment: Elec tronically Signed By: Parvin VILLA MD\.br\Date and Time Signed: 11/09/22 14:10 EDT\.br\Electronically Co-Signed By: Dia Serrato\.br\Date and Time Co-Signed: 11/09/22 14:09 EDT Lab Reportson 10-12-2022 Lab Reports [id number]#1.00CD:127 [facility] Lab Reports [id number]#1.00CD:127 [facility] Lab Reports [id number]#1.00CD:127 [facility] Lab Reports [id number]#1.00CD:127 [facility] Lab Reports [id number]#1.00CD:127 [facility] Consultation Noteon 10-10-19 Consultation Note [id number]#1.00CD:127 [facility] Insurance Correspondence Off iceon 10-09-2022 Insurance Correspondence Office [id number]#1.00CD:127 [facility] Lab Reportson 10-09-2022 Lab Reports [id number]#1.00CD:127 [facility] Lab Reports [id number]:127 [facility] Lab Reports [id number]#1.00CD:127 [facility] Operative Reporton Operative Report [id number]#1.00CD:127 [facility] Cult,Urineon 09-26-2022 Cult,Urine Specimen Description .CLEAN CATCH URINE Culture NO SIGNIFICANT GROWTH Report Status FINAL 09/26/2022 [facility] Comment on above: Performed By: #### C MPX, CDP #### [facility] [address] [place] [address] Chha: Khadar Tang MD US RENAL COMPLETEon 09-20-19 [...] Alexander Mcclain DO 09/19/22 Final result Normal [facility] Unremarkable ultraso und of the kidneys and urinary bladder. [facility] EXAMINATION: RETROPERITONEAL ULTRASOUND OF [...] the bladder. No significant post void residual. [facility] Alexander Mcclain DO - [...] of the kidneys and urinary bladder. [facility] US RENAL COMPLETEOrdered By: Alexander Mcclain on 09-19-2022 [facility] Work Phone: Basic Metabolic Profon 09-18 Anion gap [Moles/Vol] 10 mmol/L Normal 9-17 [facility] Comment on above: Performed By: #### B MP #### [facility] [address] [place], [place] [id number] Chha: Khadar Tang MD BUN/CRE Ratio 26 High 9-20 [facility] Comment on above: Performed By: #### B MP #### [facility] [address] [place], [place] [id number] Chha: Khadar Tang MD Calcium [Mass/Vol] 9.3 mg/dL Normal 8.6-10.4 [facility] Comment on above: Performed By: #### B MP #### [facility] [address] [place], [place] [id number] Chha: Khadar Tang MD Chloride [Moles/Vol] 105 mmol/L Normal 98-107 [facility] Comment on above: Performed By: #### B MP #### [facility] [address] [place], [place] [id number] Chha: Khadar Tang MD CO2 [Moles/Vol] 22 mmol/L Normal 20-31 [facility] Comment on above: Performed By: #### B MP #### [facility] [address] [place], [place] [id number] Chha: Khadar Tang MD Creatinine [Mass/Vol] 1.25 mg/dL High 0.70-1.20 [facility] Comment on above: Performed By: #### B MP #### [facility] [address] [place] [address] Chha: Khadar Tang MD GFR/1.73 sq M.predicted among non-blacks MDRD (S/P/Bld) [Vol rate/Area] mL/min/{1.73_m2} Normal >60 [facility] Comment on above: Result Comment: These results [...] secretion. Performed By: #### B MP #### [facility] [address] [place] [id number] Chha: Khadar Tang MD Glucose [Mass/Vol] 186 mg/dL High 70-99 [facility] Comment on above: Performed By: #### B MP #### [facility] [address] [place] [id number] Chha: Khadar Tang MD Potassium [Moles/Vol] 4.1 mmol/L Normal 3.7-5.3 [facility] Comment on above: Performed By: #### B MP #### [facility] [address] [place] [id number] Chha: Khadar Tang MD Sodium [Moles/Vol] 137 mmol/L Normal 135-144 [facility] Comment on above: Performed By: #### B MP #### [facility] [address] [place], [place] [address] Chha: Khadar Tang MD Urea nitrogen [Mass/Vol] 32 mg/dL High 8-23 [facility] Comment on above: Performed By: #### B MP #### [facility] [address] [place] [id number] Chha: Khadar Tang MD RENAL COMPLETEon 09-19-19 Radiology Study observation (narrative) [facility] Aerobic Cultureon 09-08-2022 Aerobic Culture ORGANISM: Strep dysgalactiae (O:STRDYS) Comments Organism Not Routinely Tested for Susceptibilities Quantity of Growth Light Growth No Anaerobes Isolated 3 Days Gram Stain Result No Bacteria Seen PERFORMED BY: [facility] [address] [place] [address] PATHOLOGIST DRUG ABUSE PROGRAM COORDINATOR FARRAH PAUL M.D. [facility] Comment on above: Performed By: #### G LULS #### Point of Care testing , Hemoglobin A1Con 2022 Glucose [Mass/Vol] 171 mg/dL Normal [facility] Comment on above: Result Comment: The ADA and AACC recommend providing the estimated average glucose result to permit better patient understanding of their HBA1c result. Performed By: #### G LYHGB #### [facility] [address], [place] [id number] Chha: Jeff Casanova MD HbA1c (Bld) [Mass fraction] 7.6 % High 4.0-6.0 [facility] Comment on above: Performed By: #### G LYHGB #### [address] [id number] Chha: Jeff Casanova MD OPERATIVE REPORTon 3 OPERATIVE REPORT [address] [address] OPERATIVE REPORT PATIENT NAME: GANGA STINSON : 1960 MED REC NO: [id number] ROOM: ACCOUNT NO: [id number] ADMIT DATE: 2022 PROVIDER: Angeles Nagy DATE OF PROCEDURE: 2022 SURGEON: Dr. Angeles Nagy. CHIEF PILOT: None. PREOPERATIVE DIAGNOSES: 1. Neurogenic bladder. 2. Urethral stricture. POSTOPERATIVE DIAGNOSES: 1. Neurogenic bladder. 2. Urethral stricture. PROCEDURE PERFORMED: Direct visual internal urethrotomy. ANESTHESIA: General. COMPLICATIONS: None. ESTIMATED BLOOD LOSS: Minimal. SPECIMENS: None. PROSTHESIS: An 18-German Rowe catheter. DISPOSITION: Stable. FINDINGS: Bulbous urethral stricture. 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 DESCRIPTION OF PROCEDURE: The patient was taken back to the operating room after informed consent including all risks, benefits, and alternatives were obtained. The patient was transferred from the [facility] onto the operating room table, where he was induced under general anesthesia and given IV Ancef for preoperative antibiotic prophylaxis. To begin the case, he was prepped and draped in the normal sterile fashion and placed in dorsal lithotomy. He had a 21-German sheath with a 30-degree lens passed through [...] then removed the scope and inserted an 18-German Rowe catheter with ease. He was then awoken from general anesthesia, transferred to the [facility], and taken to the PACU in satisfactory condition by Nursing and Anesthesia Teams. PLAN: The patient will be discharged home per PACU criterion and follow up with me in one week for Rowe catheter removal. ANGELES NAGY A[place]RI[place]/Jerry_CGGIS_I Doc#: [id number] CC: Normal [facility] Basic Metabolic Panelon 04-0 Anion gap [Moles/Vol] 10 mmol/L 9 - 17 mmol/L [facility] Calcium [Mass/Vol] 8.8 mg/dL 8.6 - 10. 4 mg/dL [facility] Chloride [Moles/Vol] 106 mmol/L 98 - 107 mmol/L [facility] CO2 [Moles/Vol] 24 mmol/L 20 - 31 mmol/L [facility] Creatinine [Mass/Vol] 1.3 mg/dL High 0.70 - 1.20 mg/dL [facility] GFR/1.73 sq M.predicted MDRD (S/P/Bld) [Vol rate/Area] - PINF [facility] Comment on above: These results are not [...] mg/dL High 70 - 99 mg/dL [facility] Interpretation and review of laboratory results Abnormal [facility] Potassium [Moles/Vol] 4.0 mmol/L 3.7 - 5.3 mmol/L [facility] Sodium [Moles/Vol] 140 mmol/L 135 - 144 mmol/L [facility] Urea nitrogen [Mass/Vol] 29 mg/dL High 8 - 23 mg/dL [facility] Urea nitrogen/Creatinin e (Bld) [Mass ratio] 22 High 9 - 20 [facility] Basic Metabolic Profon 07-02 Anion gap [Moles/Vol] 10 mmol/L Normal 9-17 [facility] Comment on above: Performed By: #### C MPX, CDP #### [facility] [address] [place] [address] Chha: Khadar Tang MD BUN/CRE Ratio 22 High 9-20 [facility] [place] Comment on above: Performed By: #### C MPX, CDP #### [facility] [address] [place] [address] Chha: Khadar Tang MD Calcium [Mass/Vol] 8.8 mg/dL Normal 8.6-10.4 [facility] Comment on above: Performed By: #### C MPX, CDP #### [facility] [address] [place] [address] Chha: Khadar Tang MD Chloride [Moles/Vol] 106 mmol/L Normal 98-107 [facility] Comment on above: Performed By: #### C MPX, CDP #### [facility] [address] [place] [address] Chha: Khadar Tang MD CO2 [Moles/Vol] 24 mmol/L Normal 20-31 [facility] Comment on above: Performed By: #### C MPX, CDP #### [facility] [address] [place] [address] Chha: Khadar Tang MD Creatinine [Mass/Vol] 1.30 mg/dL High 0.70-1.20 [facility] Comment on above: Performed By: #### C MPX, CDP #### [facility] [address] [place] [address] Chha: Khadar Tang MD GFR/1.73 sq M.predicted among non-blacks MDRD (S/P/Bld) [Vol rate/Area] mL/min/{1.73_m2} Normal >60 [facility] Comment on above: Result Comment: These results [...] Performed By: #### C MPX, CDP #### [address] [place] [address] Chha: Khadar Tang MD Glucose [Mass/Vol] 250 mg/dL High 70-99 [facility] Comment on above: Performed By: #### C MPX, CDP #### [facility] [address] [place] [address] Chha: Khadar Tang MD Potassium [Moles/Vol] 4.0 mmol/L Normal 3.7-5.3 [facility] Comment on above: Performed By: #### C MPX, CDP #### [facility] [address] [place] [address] Chha: Khadar Tang MD Sodium [Moles/Vol] 140 mmol/L Normal 135-144 [facility] Comment on above: Performed By: #### C MPX, CDP #### [facility] [address] [place] [address] Chha: Khadar Tang MD Urea nitrogen [Mass/Vol] 29 mg/dL High 8-23 [facility] Comment on above: Performed By: #### C MPX, CDP #### [facility] [address] [place] [address] Chha: Khadar Tang MD CBC with Auto Differentialon 07-02-2022 Absolute Eos # 0.80 High [facility] Absolute Immature Granulocyte 0.06 [facility] Absolute Lymph # 1.38 [facility] Absolute [place] # 0.81 [facility] Basophils Absolute [facility] Basophils/100 WBC (Bld) 0 % 0 - 2 % [facility] Eosinophils/100 WBC (Bld) 7 % High 1 - 4 % [facility] Hematocrit (Bld) [Volume fraction] 26.8 % Low 40.7 - 50.3 % [facility] Hemoglobin (Bld) [Mass/Vol] 7.9 g/dL Low 13.0 - 17.0 g/dL [facility] Immature granulocytes/100 WBC (Bld) 1 % High 0 [facility] Interpretation and review of laboratory results Abnormal [facility] Lymphocytes/100 WBC (Bld) 13 % Low 24 - 43 % [facility] MCH (RBC) [Entitic mass] 23.3 pg Low 25.2 - 33.5 pg [facility] MCHC (RBC) [Mass/Vol] 29.5 g/dL 28.4 - 34.8 g/dL [facility] MCV (RBC) [Entitic vol] 79.1 fL Low 82.6 - 102.9 fL [facility] Monocytes/100 WBC (Bld) 8 % 3 - 12 % [facility] NRBC Automated 0.0 0.0 per 100 WBC [facility] Platelet distribution width (Bld) [Ratio] 16.1 % High 11.8 - 14.4 % [facility] Platelet mean volume (Bld) [Entitic vol] 9.1 fL 8.1 - 13.5 fL [facility] Platelets (Bld) [#/Vol] 241 10*3/uL [facility] RBC (Bld) [#/Vol] 3.39 10*6/uL Low 4.21 - 5.7 7 m/uL [facility] Segmented neutrophils/100 WBC (Bld) 71 % High 36 - 65 % [facility] Segs Absolute 7.79 [facility] WBC (Bld) [#/Vol] 10.9 10*3/uL [facility] CBC with Diffon 07-02-2022 Abs. Basophil <0.03 Normal 0.00-0.20 [facility] [place] Comment on above: Performed By: #### C MPX, CDP #### [facility] [address] [place] [address] Dr. [place], [facility]83 Chha: Khadar Tang MD Abs.Imm.Granulocyt e 0.06 k/uL Normal 0.00-0.30 [facility] Comment on above: Performed By: #### C MPX, CDP #### [facility] [address] [place] [address] Dr. [place], [place] [id number] Chha: Khadar Tang MD Abs.Neutrophil (Seg) 7.79 k/uL Normal 1.50-8.10 [facility] Comment on above: Performed By: #### C MPX, CDP #### [facility] [address] [place], [place] [id number] Chha: Khadar Tang MD Basophils/100 WBC (Bld) 0 % Normal 0-2 [facility] Comment on above: Performed By: #### C MPX, CDP #### [facility] [address] [place] [address] [place] [address] Chha: Khadar Tang MD Eosinophils (Bld) [#/Vol] 0.80 10*3/uL High 0.00-0.44 [facility] Comment on above: Performed By: #### C MPX, CDP #### [address] [place], [place] [id number] Chha: Khadar Tang MD Eosinophils/100 WBC (Bld) 7 % High 1-4 [facility] Comment on above: Performed By: #### C MPX, CDP #### [address] [place], [place] [id number] Chha: Khadar Tang MD Erythrocyte distribution width (RBC) [Ratio] 16.1 % High 11.8-14.4 [facility] Comment on above: Performed By: #### C MPX, CDP #### [address] [place] [address] [place] [address] Chha: Khadar Tang MD Hematocrit (Bld) [Volume fraction] 26.8 % Low 40.7-50.3 [facility] Comment on above: Performed By: #### C MPX, CDP #### [address] [place], [place] [id number] Chha: Khadar Tang MD Hemoglobin (Bld) [Mass/Vol] 7.9 g/dL Low 13.0-17.0 [facility] Comment on above: Performed By: #### C MPX, CDP #### [address] [place], [place] [address]83 Chha: Khadar Tang MD Immature granulocytes/100 WBC (Bld) 1 % High 0 [facility] Comment on above: Performed By: #### C MPX, CDP #### [address] [place] [address] Chha: Khadar Tang MD Lymphocytes (Bld) [#/Vol] 1.38 10*3/uL Normal 1.10-3.70 [facility] Comment on above: Performed By: #### C MPX, CDP #### [facility] [address] [place], [place] [address] Chha: Khadar Tang MD Lymphocytes/100 WBC (Bld) 13 % Low 24-43 [facility] Comment on above: Performed By: #### C MPX, CDP #### [facility] [address] [place], [facility]83 Chha: Khadar Tang MD MCH (RBC) [Entitic mass] 23.3 pg Low 25.2-33.5 [facility] Comment on above: Performed By: #### C MPX, CDP #### [address] [place], [facility]83 Chha: Khadar Tang MD MCHC (RBC) [Mass/Vol] 29.5 g/dL Normal 28.4-34.8 [facility] Comment on above: Performed By: #### C MPX, CDP #### [address] [place], [facility]83 Chha: Khadar Tang MD MCV (RBC) [Entitic vol] 79.1 fL Low 82.6-102.9 [facility] Comment on above: Performed By: #### C MPX, CDP #### [address] [place], [facility]83 Chha: Khadar Tang MD Monocytes (Bld) [#/Vol] 0.81 10*3/uL Normal 0.10-1.20 [facility] Comment on above: Performed By: #### C MPX, CDP #### [facility] [address] [place] [address] Chha: Khadar Tang MD Monocytes/100 WBC (Bld) 8 % Normal 3-12 [facility] Comment on above: Performed By: #### C MPX, CDP #### [facility] [address] [place], [place] [address] Chha: Khadar Tang MD Neutrophil (Seg) 71 % High 36-65 [facility] Comment on above: Performed By: #### C MPX, CDP #### [facility] [address] [place], [place] [id number] Chha: Khadar Tang MD NRBC Automated 0.0 per 100 WBC Normal 0.0 [facility] Comment on above: Performed By: #### C MPX, CDP #### [facility] [address] [place], [place] [id number] Chha: Khadar Tang MD Platelet mean volume (Bld) [Entitic vol] 9.1 fL Normal 8.1-13.5 [facility] Comment on above: Performed By: #### C MPX, CDP #### [address] [place], [place] [id number] Chha: Khadar Tang MD Platelets (Bld) [#/Vol] 241 10*3/uL Normal 138-453 [facility] Comment on above: Performed By: #### C MPX, CDP #### [address] [place], [place] [id number] Chha: Khadar Tang MD RBC (Bld) [#/Vol] 3.39 10*6/uL Low 4.21-5.77 [facility] Comment on above: Performed By: #### C MPX, CDP #### [address] [place], [place] [id number] Chha: Khadar Tang MD WBC (Bld) [#/Vol] 10.9 10*3/uL Normal 3.5-11.3 [facility] Comment on above: Performed By: #### C MPX, CDP #### [address] [place] [place] [address] Chha: Khadar Tang MD Cult,Woundon 06-27-2022 Cult,Wound Specimen Description .WOUND Special Requests LEG Direct Exam NO NEUTROPHILS SEEN NO ORGANISMS SEEN Culture NO GROWTH Report Status FINAL 06/27/2022 Normal [facility] Comment on above: Performed By: #### C MPX, CDP #### [facility] [address] [place] [place] [address] Chha: Khadar Tang MD CBC auto differentialon 05-29 Absolute Eos # 0.63 High [facility] Absolute Immature Granulocyte 0.05 [facility] Absolute Lymph # 1.33 [facility] Absolute [place] # 0.82 [facility] Basophils Absolute [facility] Basophils/100 WBC (Bld) 0 % 0 - 2 % [facility] Eosinophils/100 WBC (Bld) 7 % High 1 - 4 % [facility] Hematocrit (Bld) [Volume fraction] 24.4 % Low 40.7 - 50.3 % [facility] Hemoglobin (Bld) [Mass/Vol] 7.6 g/dL Low 13.0 - 17.0 g/dL [facility] Immature granulocytes/100 WBC (Bld) 1 % High 0 [facility] Interpretation and review of laboratory results Abnormal [facility] Lymphocytes/100 WBC (Bld) 14 % Low 24 - 43 % [facility] MCH (RBC) [Entitic mass] 23.8 pg Low 25.2 - 33.5 pg [facility] MCHC (RBC) [Mass/Vol] 31.1 g/dL 28.4 - 34.8 g/dL [facility] MCV (RBC) [Entitic vol] 76.3 fL Low 82.6 - 102.9 fL [facility] Monocytes/100 WBC (Bld) 9 % 3 - 12 % [facility] NRBC Automated 0.0 0.0 per 100 WBC [facility] Platelet distribution width (Bld) [Ratio] 16.0 % High 11.8 - 14.4 % [facility] Platelet mean volume (Bld) [Entitic vol] 8.8 fL 8.1 - 13.5 fL [facility] Platelets (Bld) [#/Vol] 205 10*3/uL [facility] RBC (Bld) [#/Vol] 3.20 10*6/uL Low 4.21 - 5.7 7 m/uL [facility] Segmented neutrophils/100 WBC (Bld) 69 % High 36 - 65 % [facility] Segs Absolute 6.49 [facility] WBC (Bld) [#/Vol] 9.3 10*3/uL [facility] CBC with Diffon 06-26-2022 Abs. Basophil <0.03 Normal 0.00-0.20 [facility] [place] Comment on above: Performed By: #### C MPX, CDP #### [facility] [address] [place] [address] [place]. [place] [id number] Chha: Khadar Tang MD Abs.Imm.Granulocyt e 0.05 k/uL Normal 0.00-0.30 [facility] Comment on above: Performed By: #### C MPX, CDP #### [address] [place] [place] [address] Chha: Khadar Tang MD Abs.Neutrophil (Seg) 6.49 k/uL Normal 1.50-8.10 [facility] Comment on above: Performed By: #### C MPX, CDP #### [address] [place], [place] 3945483 Chha: Khadar Tang MD Basophils/100 WBC (Bld) 0 % Normal 0-2 [facility] Comment on above: Performed By: #### C MPX, CDP #### [address] [place] [address] Chha: Khadar Tang MD Eosinophils (Bld) [#/Vol] 0.63 10*3/uL High 0.00-0.44 [facility] Comment on above: Performed By: #### C MPX, CDP #### [facility] [address] [place], [place] [address] Chha: Khadar Tang MD Eosinophils/100 WBC (Bld) 7 % High 1-4 [facility] Comment on above: Performed By: #### C MPX, CDP #### [facility] [address] [place], [facility]83 Chha: Khadar Tang MD Erythrocyte distribution width (RBC) [Ratio] 16.0 % High 11.8-14.4 [facility] Comment on above: Performed By: #### C MPX, CDP #### [address] [place], [facility]83 Chha: Khadar Tang MD Hematocrit (Bld) [Volume fraction] 24.4 % Low 40.7-50.3 [facility] Comment on above: Performed By: #### C MPX, CDP #### [address] [place], [facility]83 Chha: Khadar Tang MD Hemoglobin (Bld) [Mass/Vol] 7.6 g/dL Low 13.0-17.0 [facility] Comment on above: Performed By: #### C MPX, CDP #### [address] [place], [facility]83 Chha: Khadar Tang MD Immature granulocytes/100 WBC (Bld) 1 % High 0 [facility] Comment on above: Performed By: #### C MPX, CDP #### [address] [place], [facility]83 Chha: Khadar Tang MD Lymphocytes (Bld) [#/Vol] 1.33 10*3/uL Normal 1.10-3.70 [facility] Comment on above: Performed By: #### C MPX, CDP #### [facility] [address] [place], [place] [id number] Chha: Khadar Tang MD Lymphocytes/100 WBC (Bld) 14 % Low 24-43 [facility] Comment on above: Performed By: #### C MPX, CDP #### [facility] [address] [place], [facility]83 Chha: Khadar Tang MD MCH (RBC) [Entitic mass] 23.8 pg Low 25.2-33.5 [facility] Comment on above: Performed By: #### C MPX, CDP #### [address] [place], [facility]83 Chha: Khadar Tang MD MCHC (RBC) [Mass/Vol] 31.1 g/dL Normal 28.4-34.8 [facility] Comment on above: Performed By: #### C MPX, CDP #### [address] [place], [facility]83 Chha: Khadar Tang MD MCV (RBC) [Entitic vol] 76.3 fL Low 82.6-102.9 [facility] Comment on above: Performed By: #### C MPX, CDP #### [address] [place], [facility]83 Chha: Khadar Tang MD Monocytes (Bld) [#/Vol] 0.82 10*3/uL Normal 0.10-1.20 [facility] Comment on above: Performed By: #### C MPX, CDP #### [address] [place] [address] Chha: Khadar Tang MD Monocytes/100 WBC (Bld) 9 % Normal 3-12 [facility] Comment on above: Performed By: #### C MPX, CDP #### [address] [place] [id number] Chha: Khadar Tang MD Neutrophil (Seg) 69 % High 36-65 [facility] Comment on above: Performed By: #### C MPX, CDP #### [facility] [address] [place], [place] [address]0483 Chha: Khadar Tang MD NRBC Automated 0.0 per 100 WBC Normal 0.0 [facility] Comment on above: Performed By: #### C MPX, CDP #### [facility] [address] [place], [place] [id number] Chha: Khadar Tang MD Platelet mean volume (Bld) [Entitic vol] 8.8 fL Normal 8.1-13.5 [facility] Comment on above: Performed By: #### C MPX, CDP #### [facility] [address] [place], [place] 8287483 Chha: Khadar Tang MD Platelets (Bld) [#/Vol] 205 10*3/uL Normal 138-453 [facility] Comment on above: Performed By: #### C MPX, CDP #### [address] [place], [place] 3634683 Chha: Khadar Tang MD RBC (Bld) [#/Vol] 3.20 10*6/uL Low 4.21-5.77 [facility] Comment on above: Performed By: #### C MPX, CDP #### [facility] [address] [place], [place] 2600083 Chha: Khadar Tang MD WBC (Bld) [#/Vol] 9.3 10*3/uL Normal 3.5-11.3 [facility] Comment on above: Performed By: #### C MPX, CDP #### [facility] [address] [place], [place] 1645983 Chha: Khadar Tnag MD EKG Rhythm Stripon 3 rd [facility] Glucose, Whole Bloodon 06-26 Glucose [Mass/Vol] 95 mg/dL 74 - 100 mg/dL [facility] No Panel Informationon 06-26 No dictation [facility] Work Phone: [facility] Work Phone: Surgical Pathologyon 023 Surgical Pathology [...] SURGICAL PATHOLOGY CONSULTATION Patient Name: GANGA STINSON [facility] Rec: [id number] Path Number: [id number] [facility] ANATOMIC PATHOLOGY [address] [place] [address]. [place], [place] [address] Normal [facility] Comment on above: Performed By: #### C MPX, CDP #### [facility] [address] [place] [address] [place] [address] Chha: Khadar Tang MD Blood occult stool #1on 05-29 Date, Stool #1 3 [facility] Comment on above: 30 23 Hemoglobin.gastroi ntestinal spec 1 Ql (Stl) Negative NEGATIVE [facility] Time, Stool #1 1944 [facility] CBC auto differentialon 05-29 Absolute Eos # 0.63 High [facility] Absolute Immature Granulocyte 0.07 [facility] Absolute Lymph # 1.63 [facility] Absolute [place] # 0.76 [facility] Basophils Absolute [facility] Basophils/100 WBC (Bld) 0 % 0 - 2 % [facility] Eosinophils/100 WBC (Bld) 7 % High 1 - 4 % [facility] Hematocrit (Bld) [Volume fraction] 24.6 % Low 40.7 - 50.3 % [facility] Hemoglobin (Bld) [Mass/Vol] 7.6 g/dL Low 13.0 - 17.0 g/dL [facility] Immature granulocytes/100 WBC (Bld) 1 % High 0 [facility] Interpretation and review of laboratory results Abnormal [facility] Lymphocytes/100 WBC (Bld) 19 % Low 24 - 43 % [facility] MCH (RBC) [Entitic mass] 23.7 pg Low 25.2 - 33.5 pg [facility] MCHC (RBC) [Mass/Vol] 30.9 g/dL 28.4 - 34.8 g/dL [facility] MCV (RBC) [Entitic vol] 76.6 fL Low 82.6 - 102.9 fL [facility] Monocytes/100 WBC (Bld) 9 % 3 - 12 % [facility] NRBC Automated 0.0 0.0 per 100 WBC [facility] Platelet distribution width (Bld) [Ratio] 15.9 % High 11.8 - 14.4 % [facility] Platelet mean volume (Bld) [Entitic vol] 8.9 fL 8.1 - 13.5 fL [facility] Platelets (Bld) [#/Vol] 223 10*3/uL [facility] RBC (Bld) [#/Vol] 3.21 10*6/uL Low 4.21 - 5.7 7 m/uL [facility] Segmented neutrophils/100 WBC (Bld) 64 % 36 - 65 % [facility] Segs Absolute 5.60 [facility] WBC (Bld) [#/Vol] 8.7 10*3/uL [facility] CBC with Diffon 06-25-2022 Abs. Basophil <0.03 Normal 0.00-0.20 [facility] [place] Comment on above: Performed By: #### T ROPI #### [facility] [address] [place] [address] Chha: Khadar Tang MD Abs.Imm.Granulocyt e 0.07 k/uL Normal 0.00-0.30 [facility] Comment on above: Performed By: #### T ROPI #### [facility] [address] [place], [place] [id number] Chha: Khadar Tang MD Abs.Neutrophil (Seg) 5.60 k/uL Normal 1.50-8.10 [facility] Comment on above: Performed By: #### T ROPI #### [address] [place], [facility]83 Chha: Khadar Tang MD Basophils/100 WBC (Bld) 0 % Normal 0-2 [facility] Comment on above: Performed By: #### T ROPI #### [address] [place], [place] [address] Chha: Khadar Tang MD Eosinophils (Bld) [#/Vol] 0.63 10*3/uL High 0.00-0.44 [facility] [facility] Comment on above: Performed By: #### T ROPI #### [facility] [address] [place] [address] Dr. Suárez, [place] [address] Chha: Khadar Tang MD Eosinophils/100 WBC (Bld) 7 % High 1-4 [facility] Comment on above: Performed By: #### T ROPI #### [address] Suárez, [facility]83 Chha: Khadar Tang MD Erythrocyte distribution width (RBC) [Ratio] 15.9 % High 11.8-14.4 [facility] Comment on above: Performed By: #### T ROPI #### [facility] [address] [place] [address] Dr. Suárez, [facility]83 Chha: Khadar Tang MD Hematocrit (Bld) [Volume fraction] 24.6 % Low 40.7-50.3 [facility] Comment on above: Performed By: #### T ROPI #### [address] Suárez [facility]83 Chha: Khadar Tang MD Hemoglobin (Bld) [Mass/Vol] 7.6 g/dL Low 13.0-17.0 [facility] Comment on above: Performed By: #### T ROPI #### [address] Suárez [facility]83 Chha: Khadar Tang MD Immature granulocytes/100 WBC (Bld) 1 % High 0 [facility] Comment on above: Performed By: #### T ROPI #### [address] Suárez, [facility]83 Chha: Khadar Tang MD Lymphocytes (Bld) [#/Vol] 1.63 10*3/uL Normal 1.10-3.70 [facility] Comment on above: Performed By: #### T ROPI #### [address] Suárez [facility]83 Chha: Khadar Tang MD Lymphocytes/100 WBC (Bld) 19 % Low 24-43 [facility] Comment on above: Performed By: #### T ROPI #### [address] Suárez, [facility]83 Chha: Khadar Tang MD MCH (RBC) [Entitic mass] 23.7 pg Low 25.2-33.5 [facility] Comment on above: Performed By: #### T ROPI #### [address] Suárez [facility]83 Chha: Khadar Tang MD MCHC (RBC) [Mass/Vol] 30.9 g/dL Normal 28.4-34.8 [facility] Comment on above: Performed By: #### T ROPI #### [facility] [address] [place] [address] Chha: Khadar Tang MD MCV (RBC) [Entitic vol] 76.6 fL Low 82.6-102.9 [facility] Comment on above: Performed By: #### T ROPI #### [facility] [address] [place] [address] Chha: Khadar Tang MD Monocytes (Bld) [#/Vol] 0.76 10*3/uL Normal 0.10-1.20 [facility] Comment on above: Performed By: #### T ROPI #### [address] Suárez, [place] [id number] Chha: Khadar Tang MD Monocytes/100 WBC (Bld) 9 % Normal 3-12 [facility] Comment on above: Performed By: #### T ROPI #### [address] Suárez, [place] [id number] Chha: Khadar Tang MD Neutrophil (Seg) 64 % Normal 36-65 [facility] Comment on above: Performed By: #### T ROPI #### [facility] [address] [place] [address] Dr. Suárez, [place] [id number] Chha: Khadar Tang MD NRBC Automated 0.0 per 100 WBC Normal 0.0 [facility] Comment on above: Performed By: #### T ROPI #### [facility] [address] [place] [address] Chha: Khadar Tang MD Platelet mean volume (Bld) [Entitic vol] 8.9 fL Normal 8.1-13.5 [facility] Comment on above: Performed By: #### T ROPI #### [facility] [address] [place], [place] [id number] Chha: Khadar Tang MD Platelets (Bld) [#/Vol] 223 10*3/uL Normal 138-453 [facility] Comment on above: Performed By: #### T ROPI #### [facility] [address] [place], [place] [id number] Chha: Khadar Tang MD RBC (Bld) [#/Vol] 3.21 10*6/uL Low 4.21-5.77 [facility] Comment on above: Performed By: #### T ROPI #### [facility] [address] [place], [place] [id number] Chha: Khadar Tang MD WBC (Bld) [#/Vol] 8.7 10*3/uL Normal 3.5-11.3 [facility] Comment on above: Performed By: #### T ROPI #### [facility] [address] [place], [place] [id number] Chha: Khadar Tang MD Comp Metabolic Pr/rfx MGon 0 - Albumin [Mass/Vol] 2.8 g/dL Low 3.5-5.2 [facility] Comment on above: Performed By: #### T ROPI #### [facility] [address] [place], [place] [id number] Chha: Khadar Tang MD Albumin/Glob Ratio 0.7 Low 1.0-2.5 [facility] Comment on above: Performed By: #### T ROPI #### [facility] [address] [place] [address] Chha: Khadar Tang MD Alkaline Phos 75 U/L Normal 40-129 [facility] Comment on above: Performed By: #### T ROPI #### [facility] [address] [place], [place] [id number] Chha: Khadar Tang MD ALT [Catalytic activity/Vol] 9 U/L Normal 5-41 [facility] Comment on above: Performed By: #### T ROPI #### [facility] [address] [place], [place] 4402283 Chha: Khadar Tang MD Anion gap [Moles/Vol] 6 mmol/L Low 9-17 [facility] Comment on above: Performed By: #### T ROPI #### [facility] [address] [place], [place] [id number] Chha: Khadar Tang MD AST [Catalytic activity/Vol] 10 U/L Normal <40 [facility] Comment on above: Performed By: #### T ROPI #### [facility] [address] [place], [place] [id number] Chha: Khadar Tang MD Bilirubin [Mass/Vol] 0.3 mg/dL Normal 0.3-1.2 [facility] Comment on above: Performed By: #### T ROPI #### [facility] [address] [place], [place] [id number] Chha: Khadar Tang MD BUN/CRE Ratio 20 Normal 9-20 [facility] Comment on above: Performed By: #### T ROPI #### [facility] [address] [place], [place] [id number] Chha: Khadar Tang MD Calcium [Mass/Vol] 8.7 mg/dL Normal 8.6-10.4 [facility] Comment on above: Performed By: #### T ROPI #### [facility] [address] [place], [place] [id number] Chha: Khadar Tang MD Chloride [Moles/Vol] 113 mmol/L High 98-107 [facility] Comment on above: Performed By: #### T ROPI #### [facility] [address] [place] [address] Chha: Khadar Tang MD CO2 [Moles/Vol] 20 mmol/L Normal 20-31 [facility] Comment on above: Performed By: #### T ROPI #### [facility] [address] [place] [address] Chha: Khadar Tang MD Creatinine [Mass/Vol] 0.97 mg/dL Normal 0.70-1.20 [facility] Comment on above: Performed By: #### T ROPI #### [facility] [address] [place] [address] Chha: Khadar Tang MD GFR/1.73 sq M.predicted among non-blacks MDRD (S/P/Bld) [Vol rate/Area] mL/min/{1.73_m2} Normal >60 [facility] Comment on above: Result Comment: These results [...] secretion. Performed By: #### T ROPI #### [facility] [address] [place] [address] Chha: Khadar Tang MD Glucose [Mass/Vol] 144 mg/dL High 70-99 [facility] Comment on above: Performed By: #### T ROPI #### [facility] [address] [place] [address] Chha: Khadar Tang MD Potassium [Moles/Vol] 4.5 mmol/L Normal 3.7-5.3 [facility] Comment on above: Performed By: #### T ROPI #### [facility] [address] [place] [address] Chha: Khadar Tang MD Protein [Mass/Vol] 6.7 g/dL Normal 6.4-8.3 [facility] Comment on above: Performed By: #### T ROPI #### [facility] [address] [place] [address] Chha: Khadar Tang MD Sodium [Moles/Vol] 139 mmol/L Normal 135-144 [facility] Comment on above: Performed By: #### T ROPI #### [facility] [address] [place] [address] Chha: Khadar Tang MD Urea nitrogen [Mass/Vol] 19 mg/dL Normal 8-23 [facility] Comment on above: Performed By: #### T ROPI #### [facility] [address] [place] [address] Chha: Khadar Tang MD Comprehensive Metabolic Pane l w/ Reflex to MGon 06-25-2022 Albumin [Mass/Vol] 2.8 g/dL Low 3.5 - 5.2 g/dL [facility] Albumin/Globulin [Mass ratio] 0.7 {ratio} Low 1.0 - 2.5 [facility] ALP [Catalytic activity/Vol] 75 U/L 40 - 129 U/L [facility] ALT [Catalytic activity/Vol] 9 U/L 5 - 41 U/L [facility] Anion gap [Moles/Vol] 6 mmol/L Low 9 - 17 mmol/L [facility] AST [Catalytic activity/Vol] 10 U/L NINF - 40 U/L [facility] Bilirubin [Mass/Vol] 0.3 mg/dL 0.3 - 1.2 mg/dL [facility] Calcium [Mass/Vol] 8.7 mg/dL 8.6 - 10. 4 mg/dL [facility] Chloride [Moles/Vol] 113 mmol/L High 98 - 107 mmol/L [facility] CO2 [Moles/Vol] 20 mmol/L 20 - 31 mmol/L [facility] Creatinine [Mass/Vol] 0.97 mg/dL 0.70 - 1.20 mg/dL [facility] GFR/1.73 sq M.predicted MDRD (S/P/Bld) [Vol rate/Area] - PINF [facility] Comment on above: These results are not [...] mg/dL High 70 - 99 mg/dL [facility] Interpretation and review of laboratory results Abnormal [facility] Potassium [Moles/Vol] 4.5 mmol/L 3.7 - 5.3 mmol/L [facility] Protein [Mass/Vol] 6.7 g/dL 6.4 - 8.3 g/dL [facility] Sodium [Moles/Vol] 139 mmol/L 135 - 144 mmol/L [facility] Urea nitrogen [Mass/Vol] 19 mg/dL 8 - 23 mg/dL [facility] Urea nitrogen/Creatinin e (Bld) [Mass ratio] 20 9 - 20 [facility] Cult,Woundon 06-25-2022 Cult,Wound Specimen Description .BUTTOCK Direct Exam FEW NEUTROPHILS MODERATE GRAM POSITIVE COCCI IN PAIRS MODERATE GRAM POSITIVE RODS Culture NORMAL SKIN ROBBIE Report Status FINAL 06/25/2022 Normal [facility] Comment on above: Performed By: #### T BRENDA #### [facility] [place] [address] Chha: Khadar Tang MD EKG Rhythm Stripon 3 [facility] Occult Blood, Fecalon 2022 Occult Blood 1 Negative Normal NEG [facility] Comment on above: Performed By: #### C MPX, CDP #### [facility] [address] [place] [address] Dr. Suárez, [place] [id number] Chha: Khadar Tang MD Specimen 1 Date [facility] Comment on above: Result Comment: Performed By: #### C MPX, CDP #### [facility] [address] [place] [address] Chha: Khadar Tang MD Specimen 1 Time 1944 [facility] Comment on above: Performed By: #### C MPX, CDP #### [address] Suá[place], [place] [id number] Chha: Khadar Tang MD Surgical Pathologyon 023 Surgical [...] SURGICAL PATHOLOGY CONSULTATION Patient Name: GANGA STINSON [facility] Rec: [id number] Path Number: [id number] [facility] ANATOMIC PATHOLOGY [address] [place] [id number] [facility] Comment on above: Performed By: #### C MPX, CDP #### [facility] [address] [place] [address] [place], [place] [address] Chha: Khadar Tang MD TYPE AND SCREENon 06-25-2022 ABO/Rh Negative [facility] Arm Band Number [id number] RAIN SANDOVAL [facility] Blood Bank Blood Product Expiration Date [id number] [facility] Blood Bank ISBT Product Blood Type 9500 [facility] Blood Bank Unit Type and Rh Negative [facility] Blood product type Nom (BPU) Leukocyte Reduced Red Cell RAIN [facility] Blood product unit ID (Dose) [#] [id number] [facility] Crossmatch Result COMPATIBLE [facility] Dispense Status TRANSFUSED RAIN [facility] Expiration Date 06/27/2022,2359 [facility] Product Code Blood Bank [id number] [facility] Transfusion Status OK TO TRANSFUSE B ON [facility] Unit Divison 0 [facility] Unit Issue Date/Time [id number] [facility] APTTon 06-24-2022 aPTT Coag (Bld) [Time] 35.6 s High 26.8-34.8 [facility] Comment on above: Result Comment: IV Heparin Therapy Range: 62.0-94.0 Performed By: #### C MPX, CDP #### [facility] [address] [place] [address] [place]. [place] [address] Chha: Khadar Tang MD B12/Folate Panelon Cobalamin (Vitamin B12) [Mass/Vol] 446 pg/mL Normal 232-1245 [facility] Comment on above: Performed By: #### C MPX, CDP #### [facility] [address] [place] [address] Chha: Khadar Tang MD Folic Acid 8.2 ng/mL Normal >4.8 [facility] Comment on above: Performed By: #### C MPX, CDP #### [facility] [address] [place] [address] Chha: Khadar Tang MD CBC auto differentialon 05-28 Absolute Eos # 0.46 High [facility] Absolute Immature Granulocyte 0.07 [facility] Absolute Lymph # 1.52 [facility] SECO URS [facility] Absolute [place] # 0.53 [facility] SECOU RS [facility] Basophils (Bld) [#/Vol] 0.00 10*3/uL [facility] Hematocrit (Bld) [Volume fraction] 21.7 % Low 40.7 - 50.3 % [facility] Hemoglobin (Bld) [Mass/Vol] 6.6 g/dL Critically low 13.0 - 17.0 g/dL [facility] Interpretation and review of laboratory results Abnormal [facility] MCH (RBC) [Entitic mass] 23.4 pg Low 25.2 - 33.5 pg [facility] MCHC (RBC) [Mass/Vol] 30.4 g/dL 28.4 - 34.8 g/dL [facility] MCV (RBC) [Entitic vol] 77.0 fL Low 82.6 - 102.9 fL [facility] Morphology Álvaro (Bld) [Interp] HYPOCHROMIA PRESENT [facility] NRBC Automated 0.0 0.0 per 100 WBC [facility] Platelet distribution width (Bld) [Ratio] 16.2 % High 11.8 - 14.4 % [facility] Platelet mean volume (Bld) [Entitic vol] 8.9 fL 8.1 - 13.5 fL [facility] Platelets (Bld) [#/Vol] 208 10*3/uL [facility] RBC (Bld) [#/Vol] 2.82 10*6/uL Low 4.21 - 5.7 7 m/uL [facility] Segmented neutrophils/100 WBC (Bld) 61 % 36 - 65 % [facility] Segs Absolute 4.02 [facility] WBC (Bld) [#/Vol] 6.6 10*3/uL [facility] SE COURS [facility] CBC with Diffon 06-24-2022 Abs. Basophil 0.00 k/uL Normal 0.0-0.2 [facility] Comment on above: Performed By: #### C MPX, CDP #### [facility] [address] [place] [address] Chha: Khadar Tang MD Abs.Imm.Granulocyt e 0.07 k/uL Normal 0.00-0.30 [facility] Comment on above: Performed By: #### C MPX, CDP #### [facility] [address] [place] [address] Chha: Khadar Tang MD Abs.Neutrophil (Seg) 4.02 k/uL Normal 1.50-8.10 [facility] Comment on above: Performed By: #### C MPX, CDP #### [address] [place] [place] [address] Chha: Khadar Tang MD Eosinophils (Bld) [#/Vol] 0.46 10*3/uL High 0.00-0.44 [facility] Comment on above: Performed By: #### C MPX, CDP #### [address] [place] [address] Chha: Khadar Tang MD Lymphocytes (Bld) [#/Vol] 1.52 10*3/uL Normal 1.10-3.70 [facility] Comment on above: Performed By: #### C MPX, CDP #### [facility] [address] [place] [address] Dr. [place] [id number] Chha: Khadar Tang MD Monocytes (Bld) [#/Vol] 0.53 10*3/uL Normal 0.10-1.20 [facility] Comment on above: Performed By: #### C MPX, CDP #### [facility] [address] [place] [address] Chha: Khadar Tang MD Morphology Álvaro (Bld) [Interp] HYPOCHROMIA Normal [facility] Comment on above: Result Comment: PRES ENT Performed By: #### C MPX, CDP #### [facility] [address] [place], [place] [id number] Chha: Khadar Tang MD Neutrophil (Seg) 61 % Normal 36-65 [facility] Comment on above: Performed By: #### C MPX, CDP #### [facility] [address] [place], [place] [phone] Chha: Khadar Tang MD Erythrocyte distribution width (RBC) [Ratio] 16.2 % High 11.8-14.4 [facility] Comment on above: Performed By: #### C MPX, CDP #### [facility] [address] [place], [place] [id number] Chha: Khadar Tang MD Hematocrit (Bld) [Volume fraction] 21.7 % Low 40.7-50.3 [facility] Comment on above: Performed By: #### C MPX, CDP #### [address] [place], [place] 2679083 Chha: Khadar Tang MD Hemoglobin (Bld) [Mass/Vol] 6.6 g/dL Critically low 13.0-17.0 [facility] Comment on above: Performed By: #### C MPX, CDP #### [address] [place], [place] 2141783 Chha: Khadar Tang MD MCH (RBC) [Entitic mass] 23.4 pg Low 25.2-33.5 [facility] Comment on above: Performed By: #### C MPX, CDP #### [address] [place] [address] Chha: Khadar Tang MD MCHC (RBC) [Mass/Vol] 30.4 g/dL Normal 28.4-34.8 [facility] Comment on above: Performed By: #### C MPX, CDP #### [facility] [address] [place], [place] [id number] Chha: Khadar Tang MD MCV (RBC) [Entitic vol] 77.0 fL Low 82.6-102.9 [facility] Comment on above: Performed By: #### C MPX, CDP #### [address] Suárez, [facility]83 Chha: Khadar Tang MD NRBC Automated 0.0 per 100 WBC Normal 0.0 [facility] Comment on above: Performed By: #### C MPX, CDP #### [address] [place] [address] Chha: Khadar Tang MD Platelet mean volume (Bld) [Entitic vol] 8.9 fL Normal 8.1-13.5 [facility] Comment on above: Performed By: #### C MPX, CDP #### [address] Suárez, [facility]83 Chha: Khadar Tang MD Platelets (Bld) [#/Vol] 208 10*3/uL Normal 138-453 [facility] Comment on above: Performed By: #### C MPX, CDP #### [address] [place], [place] [id number] Chha: Khadar Tang MD RBC (Bld) [#/Vol] 2.82 10*6/uL Low 4.21-5.77 [facility] Comment on above: Performed By: #### C MPX, CDP #### [address] [place] [address] Chha: Khadar Tang MD WBC (Bld) [#/Vol] 6.6 10*3/uL Normal 3.5-11.3 [facility] Comment on above: Performed By: #### C MPX, CDP #### [facility] [address] [place], [place] 1918683 Chha: Khadar Tang MD Basophils/100 WBC (Bld) 0 % Normal 0-2 [facility] Comment on above: Performed By: #### C MPX, CDP #### [facility] [address] [place], [place] [phone] Chha: Khadar Tang MD Eosinophils/100 WBC (Bld) 7 % High 1-4 [facility] Comment on above: Performed By: #### C MPX, CDP #### [address] [place], [place] 6661083 Chha: Khadar Tang MD Immature granulocytes/100 WBC (Bld) 1 % High 0 [facility] Comment on above: Performed By: #### C MPX, CDP #### [address] [place], [place] 3108883 Chha: Khadar Tang MD Lymphocytes/100 WBC (Bld) 23 % Low 24-43 [facility] Comment on above: Performed By: #### C MPX, CDP #### [address] [place], [place] [id number] Chha: Khadar Tang MD Monocytes/100 WBC (Bld) 8 % Normal 3-12 [facility] Comment on above: Performed By: #### C MPX, CDP #### [facility] [address] [place] [address] Dr. [place], [place] [id number] Chha: Khadar Tang MD Comp Metabolic Pr/rfx MGon 0 06-24-2022 Albumin [Mass/Vol] 2.4 g/dL Low 3.5-5.2 [facility] Comment on above: Performed By: #### C MPX, CDP #### [facility] [address] [place] [address] Chha: Khadar Tang MD Albumin/Glob Ratio 0.6 Low 1.0-2.5 [facility] Comment on above: Performed By: #### C MPX, CDP #### [facility] [address] [place], [place] [id number] Chha: Khadar Tang MD Alkaline Phos 75 U/L Normal 40-129 [facility] Comment on above: Performed By: #### C MPX, CDP #### [facility] [address] [place], [place] 2883883 Chha: Khadar Tang MD ALT [Catalytic activity/Vol] 9 U/L Normal 5-41 [facility] Comment on above: Performed By: #### C MPX, CDP #### [facility] [address] [place], [place] [id number] Chha: Khadar Tang MD Anion gap [Moles/Vol] 7 mmol/L Low 9-17 [facility] Comment on above: Performed By: #### C MPX, CDP #### [facility] [address] [place], [place] 4811983 Chha: Khadar Tang MD AST [Catalytic activity/Vol] 11 U/L Normal <40 [facility] Comment on above: Performed By: #### C MPX, CDP #### [facility] [address] [place], [place] 1675683 Chha: Khadar Tang MD Bilirubin [Mass/Vol] mg/dL Low 0.3-1.2 [facility] Comment on above: Performed By: #### C MPX, CDP #### [facility] [address] [place] [address] Chha: Khadar Tang MD BUN/CRE Ratio 23 High 9-20 [facility] Comment on above: Performed By: #### C MPX, CDP #### [facility] [address] [place] [address] Chha: Khadar Tang MD Calcium [Mass/Vol] 8.5 mg/dL Low 8.6-10.4 [facility] Comment on above: Performed By: #### C MPX, CDP #### [facility] [address] [place], [place] [id number] Chha: Khadar Tang MD Chloride [Moles/Vol] 115 mmol/L High 98-107 [facility] Comment on above: Performed By: #### C MPX, CDP #### [facility] [address] [place] [address] Chha: Khadar Tang MD CO2 [Moles/Vol] 18 mmol/L Low 20-31 [facility] Comment on above: Performed By: #### C MPX, CDP #### [facility] [address] [place] [address] Chha: Khadar Tang MD Creatinine [Mass/Vol] 1.11 mg/dL Normal 0.70-1.20 [facility] Comment on above: Performed By: #### C MPX, CDP #### [facility] [address] [place] [address] Chha: Khadar Tang MD GFR/1.73 sq M.predicted among non-blacks MDRD (S/P/Bld) [Vol rate/Area] mL/min/{1.73_m2} Normal >60 [facility] Comment on above: Result Comment: These results [...] Performed By: #### C MPX, CDP #### [facility] [address] [place], [place] [id number] Chha: Khadar Tang MD Glucose [Mass/Vol] 137 mg/dL High 70-99 [facility] Comment on above: Performed By: #### C MPX, CDP #### [facility] [address] [place], [place] [id number] Chha: Khadar Tang MD Potassium [Moles/Vol] 4.9 mmol/L Normal 3.7-5.3 [facility] Comment on above: Performed By: #### C MPX, CDP #### [facility] [address] [place] [address] Chha: Khadar Tang MD Protein [Mass/Vol] 6.3 g/dL Low 6.4-8.3 [facility] Comment on above: Performed By: #### C MPX, CDP #### [facility] [address] [place], [place] 4280183 Chha: Khadar Tang MD Sodium [Moles/Vol] 140 mmol/L Normal 135-144 [facility] Comment on above: Performed By: #### C MPX, CDP #### [facility] [address] [place], [place] [id number] Chha: Khadar Tang MD Urea nitrogen [Mass/Vol] 26 mg/dL High 8-23 [facility] Comment on above: Performed By: #### C MPX, CDP #### [facility] [address] [place] [address] Chha: Khadar Tang MD Comprehensive Metabolic Pane l w/ Reflex to MGon 06-24-2022 Albumin [Mass/Vol] 2.4 g/dL Low 3.5 - 5.2 g/dL [facility] Albumin/Globulin [Mass ratio] 0.6 {ratio} Low 1.0 - 2.5 [facility] ALP [Catalytic activity/Vol] 75 U/L 40 - 129 U/L [facility] ALT [Catalytic activity/Vol] 9 U/L 5 - 41 U/L [facility] Anion gap [Moles/Vol] 7 mmol/L Low 9 - 17 mmol/L [facility] AST [Catalytic activity/Vol] 11 U/L NINF - 40 U/L [facility] Bilirubin [Mass/Vol] mg/dL Low 0.3 - 1.2 mg/dL [facility] Calcium [Mass/Vol] 8.5 mg/dL Low 8.6 - 10. 4 mg/dL [facility] Chloride [Moles/Vol] 115 mmol/L High 98 - 107 mmol/L [facility] CO2 [Moles/Vol] 18 mmol/L Low 20 - 31 mmol/L [facility] Creatinine [Mass/Vol] 1.11 mg/dL 0.70 - 1.20 mg/dL [facility] GFR/1.73 sq M.predicted MDRD (S/P/Bld) [Vol rate/Area] - PINF [facility] Comment on above: These results are not [...] mg/dL High 70 - 99 mg/dL [facility] Interpretation and review of laboratory results Abnormal [facility] Potassium [Moles/Vol] 4.9 mmol/L 3.7 - 5.3 mmol/L [facility] Protein [Mass/Vol] 6.3 g/dL Low 6.4 - 8.3 g/dL [facility] Sodium [Moles/Vol] 140 mmol/L 135 - 144 mmol/L [facility] Urea nitrogen [Mass/Vol] 26 mg/dL High 8 - 23 mg/dL [facility] Urea nitrogen/Creatinin e (Bld) [Mass ratio] 23 High 9 - 20 [facility] Culture, Wound Aerobic Onlyo n 06-24-2022 Interpretation and review of laboratory results Abnormal [facility] Microorganism identified Cx Nom (Unsp spec) NORMAL SKIN ROBBIE [facility] Microorganism or agent identified Nom (Unsp spec) FEW NEUTROPHILS Abnormal [facility] Specimen Description .BUTTOCK RAIN [facility]rb[facility] RAIN [facility] EKG 12 Leadon 06-24-2022 Atrial Rate 64 BPM [facility] Work Phone: P [place] 51 degrees RAIN [facility] Work Phone: P-R Interval 174 ms RAIN [facility] Work Phone: Q-T Interval 394 ms [facility] Work Phone: QRS Duration 94 ms RAIN [facility] Work Phone: QTc Calculation (Bazett) 406 ms RAIN [facility] Work Phone: R [place] 20 degrees [facility] Work Phone: T [place] 22 degrees [facility] Work Phone: Ventricular Rate 64 BPM RAIN WatchsendJose WILLIAM [facility] Work Phone: Normal sinus rhythm Inferior infarct , age undetermined Abnormal ECG When compared with ECG of 22-JUN-2022 17:28, Minimal criteria for Inferior infarct is now Present Confirmed by Michelle Noe MD ([id number]) on 06/24/2022 10:31:37 PM [facility] Michelle Noe MD - 06/24/2022 Normal sinus rhythm Inferior infarct , age undetermined Abnormal ECG When compared with ECG of 22-JUN-2022 17:28, Minimal criteria for Inferior infarct is now Present Confirmed by Michelle Noe MD ([id number]) on 06/24/2022 10:31:37 PM [facility] Work Phone: [facility] Work Phone: EKG Rhythm Stripon 3 [facility] ML [facility] Echocardiogram complete 2D w ith doppler with coloron 06-24-2022 Left ventricular Ejection fraction 60 [facility] Work Phone: LVEF MODALITY ECHO [facility] Work Phone: [facility] Transthoracic Echocardiography Report (TTE) Patient Name ALLOWAY Date of Study 06/24/2022 GANGA Evans Date of 1960 Gender Male Age 61 year(s) Race Room Number 0334 Height: 71 inch, 180.34 cm Corporate ID [id number] Weight: 252 pounds, 114.3 kg # Patient Acct [id number] BSA: 2.33 m^2 BMI: 35.15 kg/m^2 # MR # [id number] Bank Consultant Jeanette Clarke Interpreting Physician Michelle Noe Fellow Referring Nurse Shelly Mondragon, Practitioner DOLLY Interpreting Referring Physician Fellow Type of Study TTE procedure:2D Echocardiogram, M-Mode, Doppler, Color Doppler. Procedure Date Date: 06/24/2022 Start: 09:47 AM Study Location: [facility] Indications:Abnormal ECG. History / Tech. Comments: Abn [...] MD / Result, Unknown Provider - 06/24/2022 [facility] Transthoracic Echocardiography Report (TTE) Patient Name ALLOWAY Date of Study 06/24/2022 GANGA Evans Date of 1960 Gender Male Age 61 year(s) Race Room Number 0334 Height: 71 inch, 180.34 cm Corporate ID [id number] Weight: 252 pounds, 114.3 kg # Patient Acct [id number] BSA: 2.33 m^2 BMI: 35.15 kg/m^2 # MR # [id number] Bank Consultant Jeanette Clarke Interpreting Physician Michelle Noe Fellow Referring Nurse Shelly Mondragon, Practitioner DOLLY Interpreting Referring Physician Fellow Type of Study TTE procedure:2D Echocardiogram, M-Mode, Doppler, Color Doppler. Procedure Date Date: 06/24/2022 Start: 09:47 AM Study Location: [facility] Indications:Abnormal ECG. History / Tech. Comments: Abn [...] Wall E' velocity:0.13 m/s Lateral Wall E/E':9.8 [facility] Work Phone: [facility] Work Phone: Glucose, Whole Bloodon 06-24 Glucose [Mass/Vol] 114 mg/dL High 74 - 100 mg/dL [facility] Interpretation and review of laboratory results Abnormal [facility] Hemoglobin and Hematocriton 06-24-2022 Hematocrit (Bld) [Volume fraction] 25.1 % Low 40.7 - 50.3 % [facility] Hemoglobin (Bld) [Mass/Vol] 7.8 g/dL Low 13.0 - 17.0 g/dL [facility] Interpretation and review of laboratory results Abnormal [facility] Hgb/Hcton 06-24-2022 Hematocrit (Bld) [Volume fraction] 25.1 % Low 40.7-50.3 [facility] Comment on above: Performed By: #### C MPX, CDP #### [facility] [address] [place] [address] Chha: Khadar Tang MD Hemoglobin (Bld) [Mass/Vol] 7.8 g/dL Low 13.0-17.0 [facility] Comment on above: Performed By: #### C MPX, CDP #### [facility] [address] [place] [address] Chha: Khadar Tang MD Iron Binding Cap.on 06-25-19 23 % Fe Saturation 19 % Low 20-55 [facility] Comment on above: Performed By: #### C MPX, CDP #### [facility] [address] [place], [place] [address] Chha: Khadar Tang MD Iron [Mass/Vol] 33 ug/dL Low 59-158 [facility] Comment on above: Performed By: #### C MPX, CDP #### [facility] [address] [place] [address] Chha: Khadar Tang MD Total Fe Binding Cap 175 ug/dL Low 250-450 [facility] Comment on above: Performed By: #### C MPX, CDP #### [facility] [address] [place] [address] Chha: Khadar Tang MD Unbound Fe Bind Cap 142 ug/dL Normal 112-347 [facility] Comment on above: Performed By: #### C MPX, CDP #### [facility] [address] [place] [address] Chha: Khadar Tang MD Iron and TIBCon 06-24-2022 Interpretation and review of laboratory results Abnormal [facility] Iron [Mass/Vol] 33 ug/dL Low 59 - 158 ug/dL [facility] Iron binding capacity [Mass/Vol] 175 ug/dL Low 250 - 450 ug/dL [facility] Iron Saturation 19 % Low 20 - 55 % [facility] UIBC 142 ug/dL 112 - 347 ug/dL [facility] Laboratory - Microbiology an d Antimicrobial susceptibilityon 06-24-2022 Microorganism or agent identified Nom (Unsp spec) Positive Abnormal [facility] Lipid Panelon 06-24-2022 Cholesterol [Mass/Vol] 147 mg/dL NINF - 200 mg/dL [facility] Comment on above: Cholesterol Guidelines: <200 Desirable 200-240 Borderline >240 Undesirable Cholesterol in HDL [Mass/Vol] 28 mg/dL Low 40 - PINF mg/dL [facility] Comment on above: HDL Guidelines: <40 Undesirable 40-59 Borderline >59 Desirable Cholesterol in LDL [Mass/Vol] 98 mg/dL 0 - 130 mg/dL [facility] Comment on above: LDL Guidelines: <100 Desirable 100-129 Near to/above Desirable 130-159 Borderline >159 Undesirable Direct (measured) LDL and calculated LDL are not interchangeable tests. Cholesterol.total/ Cholesterol in HDL [Mass ratio] 5.3 {ratio} High NINF - 5 [facility] Interpretation and review of laboratory results Abnormal [facility] Triglyceride [Mass/Vol] 107 mg/dL NINF - 150 mg/dL [facility] Comment on above: Triglyceride Guidelines: <150 Desirable 150-199 Borderline 200-499 High >499 Very high Based on AHA Guidelines for fasting triglyceride, December 2011. [facility] Lipid Profileon 06-24-2022 Cholesterol [Mass/Vol] 147 mg/dL Normal <200 [facility] Comment on above: Result Comment: Cholesterol Guidelines: <200 Desirable 200-240 Borderline >240 Undesirable Performed By: #### T ROPI #### [facility] [address] [place], [place] [id number] Chha: Khadar Tang MD Cholesterol in HDL [Mass/Vol] 28 mg/dL Low >40 [facility] Comment on above: Result Comment: HDL Guidelines: <40 Undesirable 40-59 Borderline >59 Desirable Performed By: #### T ROPI #### [facility] [address] [place], [place] [id number] Chha: Khadar Tang MD Cholesterol in LDL [Mass/Vol] 98 mg/dL Normal 0-130 [facility] Comment on above: Result Comment: LDL Guidelines: <100 Desirable 100-129 Near to/above Desirable 130-159 Borderline >159 Undesirable Direct (measured) LDL and calculated LDL are not interchangeable tests. Performed By: #### T ROPI #### [facility] [address] [place] [address] [place] [address] Chha: Khadar Tang MD Cholesterol.total/ Cholesterol in HDL [Mass ratio] 5.3 {ratio} High <5 [facility] Comment on above: Performed By: #### T ROPI #### [facility] [address] [place] [address] [place] [address] Chha: Khadar Tang MD Triglyceride [Mass/Vol] 107 mg/dL Normal <150 [facility] Comment on above: Result Comment: Triglyceride Guidelines: <150 Desirable 150-199 Borderline 200-499 High >499 Very high Based on AHA Guidelines for fasting triglyceride, December 2011. Performed By: #### T ROPI #### [facility] [address] [place] [address] Chha: Khadar Tang MD PTon 06-24-2022 INR Coag (PPP) [Relative time] 1.1 {INR} Normal [facility] Comment on above: Result Comment: Therapeutic Range: Moderate Anticoagulant Intensity: INR = 2.0-3.0 High Anticoagulant Intensity: INR = 2.5-3.5 Performed By: #### C RICHX, CDP #### [facility] [address] [place] [address] [place] [address] Chha: Khadar Tang MD PT Coag (PPP) [Time] 14.8 s Normal 11.9-14.8 [facility] Comment on above: Performed By: #### C MPX, CDP #### [facility] [address] [place] [address] Chha: Khadar Tang MD PTTon 06-24-2022 aPTT Coag (Bld) [Time] 35.6 s High [facility] Comment on above: IV Heparin Therapy Range: 62.0-94.0 Interpretation and review of laboratory results Abnormal [facility] Protime-INRon 06-24-2022 INR Coag (PPP) [Relative time] 1.1 {INR} [facility] Comment on above: Therapeutic Range: Moderate Anticoagulant Intensity: INR = 2.0-3.0 High Anticoagulant Intensity: INR = 2.5-3.5 PT Coag (PPP) [Time] 14.8 s [facility] Troponinon 06-24-2022 Troponin, High Sens 57 ng/L Critically high 0-22 [facility] Comment on above: Result Comment: High Sensitivity Troponin values cannot be compared with other Troponin methodologies. Performed By: #### C MPX, CDP #### [facility] [address] [place] [address] [place] [address] Chha: Khadar Tang MD Interpretation and review of laboratory results Abnormal [facility] Troponin I.cardiac DL <= 0.01 ng/mL [Mass/Vol] 57 ng/L Critically high 0 - 22 ng/L [facility] Comment on above: High Sensitivity Tro ponin values cannot be compared with other Troponin methodologies. [facility] Troponin, High Sens 58 ng/L Critically high 0-22 [facility] Comment on above: Result Comment: High Sensitivity Troponin values cannot be compared with other Troponin methodologies. Performed By: #### T ROPI #### [facility] [address] [place] [address] Chha: Khadar Tang MD Interpretation and review of laboratory results Abnormal [facility] Troponin I.cardiac DL <= 0.01 ng/mL [Mass/Vol] 58 ng/L Critically high 0 - 22 ng/L [facility] Comment on above: High Sensitivity Tro ponin values cannot be compared with other Troponin methodologies. [facility] Troponin, High Sens 59 ng/L Critically high 0-22 [facility] Comment on above: Result Comment: High Sensitivity Troponin values cannot be compared with other Troponin methodologies. Performed By: #### C MPX, CDP #### [facility] [address] [place] [address] Chha: Khadar Tang MD Interpretation and review of laboratory results Abnormal [facility] Troponin I.cardiac DL <= 0.01 ng/mL [Mass/Vol] 59 ng/L Critically high 0 - 22 ng/L [facility] Comment on above: High Sensitivity Tro ponin values cannot be compared with other Troponin methodologies. [facility] Type + Screenon 06-24-2022 Type + Screen Sample Expiration 06/27/2022,2359 Arm Band Number [id number] ABO/Rh(D) A NEGATIVE Antibody Screen NEGATIVE Unit Number [id number] Blood Component Type Leukocyte Reduced Red Cell Unit Division 00 Status of Unit TRANSFUSED Transfusion Status OK TO TRANSFUSE Crossmatch Result COMPATIBLE Normal [facility] Comment on above: Performed By: #### C MPX, CDP #### [facility] [address] [place] [address] Chha: Khadar Tang MD Vitamin B12 & Folateon 06-24 Cobalamin (Vitamin B12) [Mass/Vol] 446 pg/mL 232 - 1245 pg/mL [facility] Folate [Mass/Vol] 8.2 ng/mL 4.8 - PINF ng/mL [facility] CBC auto differentialon 05-28 Absolute Eos # 0.65 High [facility] Absolute Immature Granulocyte 0.06 [facility] Absolute Lymph # 1.94 [facility] Absolute [place] # 0.72 [facility] Basophils (Bld) [#/Vol] 0.04 10*3/uL [facility] Basophils/100 WBC (Bld) 0 % 0 - 2 % [facility] Eosinophils/100 WBC (Bld) 7 % High 1 - 4 % [facility] Hematocrit (Bld) [Volume fraction] 25.0 % Low 40.7 - 50.3 % [facility] Hemoglobin (Bld) [Mass/Vol] 7.5 g/dL Low 13.0 - 17.0 g/dL [facility] Immature granulocytes/100 WBC (Bld) 1 % High 0 [facility] Interpretation and review of laboratory results Abnormal [facility] Lymphocytes/100 WBC (Bld) 22 % Low 24 - 43 % [facility] MCH (RBC) [Entitic mass] 23.3 pg Low 25.2 - 33.5 pg [facility] MCHC (RBC) [Mass/Vol] 30.0 g/dL 28.4 - 34.8 g/dL [facility] MCV (RBC) [Entitic vol] 77.6 fL Low 82.6 - 102.9 fL [facility] Monocytes/100 WBC (Bld) 8 % 3 - 12 % [facility] NRBC Automated 0.0 0.0 per 100 WBC [facility] Platelet distribution width (Bld) [Ratio] 16.4 % High 11.8 - 14.4 % [facility] Platelet mean volume (Bld) [Entitic vol] 8.7 fL 8.1 - 13.5 fL [facility] Platelets (Bld) [#/Vol] 263 10*3/uL [facility] RBC (Bld) [#/Vol] 3.22 10*6/uL Low 4.21 - 5.7 7 m/uL [facility] Segmented neutrophils/100 WBC (Bld) 62 % 36 - 65 % [facility] Segs Absolute 5.55 [facility] WBC (Bld) [#/Vol] 9.0 10*3/uL [facility] CBC with Diffon 06-23-2022 Abs. Basophil 0.04 k/uL Normal 0.00-0.20 [facility] Comment on above: Performed By: #### C MPX, CDP #### [facility] [address] [place] [address] [place] [address] Chha: Khadar Tang MD Abs.Imm.Granulocyt e 0.06 k/uL Normal 0.00-0.30 [facility] Comment on above: Performed By: #### C MPX, CDP #### [address] [place], [place] [id number] Chha: Khadar Tang MD Abs.Neutrophil (Seg) 5.55 k/uL Normal 1.50-8.10 [facility] Comment on above: Performed By: #### C MPX, CDP #### [address] [place], [place] [id number] Chha: Khadar Tang MD Basophils/100 WBC (Bld) 0 % Normal 0-2 [facility] Comment on above: Performed By: #### C MPX, CDP #### [facility] [address] [place] [address] [place] [address] Chha: Khadar Tang MD Eosinophils (Bld) [#/Vol] 0.65 10*3/uL High 0.00-0.44 [facility] Comment on above: Performed By: #### C MPX, CDP #### [facility] [address] [place] [address] [place] [address] Chha: Khadar Tang MD Eosinophils/100 WBC (Bld) 7 % High 1-4 [facility] Comment on above: Performed By: #### C MPX, CDP #### [facility] [address] [place], [place] [id number] Chha: Khadar Tang MD Erythrocyte distribution width (RBC) [Ratio] 16.4 % High 11.8-14.4 [facility] Comment on above: Performed By: #### C MPX, CDP #### [address] [place], [facility]83 Chha: Khadar Tang MD Hematocrit (Bld) [Volume fraction] 25.0 % Low 40.7-50.3 [facility] Comment on above: Performed By: #### C MPX, CDP #### [address] [place], [facility]83 Chha: Khadar Tang MD Hemoglobin (Bld) [Mass/Vol] 7.5 g/dL Low 13.0-17.0 [facility] Comment on above: Performed By: #### C MPX, CDP #### [address] [place], [place] [id number] Chha: Khadar Tang MD Immature granulocytes/100 WBC (Bld) 1 % High 0 [facility] Comment on above: Performed By: #### C MPX, CDP #### [address] [place], [facility]83 Chha: Khadar Tang MD Lymphocytes (Bld) [#/Vol] 1.94 10*3/uL Normal 1.10-3.70 [facility] Comment on above: Performed By: #### C MPX, CDP #### [address] [place] [address] [place] [address] Chha: Khadar Tang MD Lymphocytes/100 WBC (Bld) 22 % Low 24-43 [facility] Comment on above: Performed By: #### C MPX, CDP #### [address] [place], [place] [id number] Chha: Khadar Tang MD MCH (RBC) [Entitic mass] 23.3 pg Low 25.2-33.5 [facility] Comment on above: Performed By: #### C MPX, CDP #### [facility] [address] [place] [address] [place]. [place], [place] [id number] Chha: Khadar Tang MD MCHC (RBC) [Mass/Vol] 30.0 g/dL Normal 28.4-34.8 [facility] Comment on above: Performed By: #### C MPX, CDP #### [address] [place] [address] [place] [address] Chha: Khadar Tang MD MCV (RBC) [Entitic vol] 77.6 fL Low 82.6-102.9 [facility] Comment on above: Performed By: #### C MPX, CDP #### [address] [place], [place] [id number] Chha: Khadar Tang MD Monocytes (Bld) [#/Vol] 0.72 10*3/uL Normal 0.10-1.20 [facility] Comment on above: Performed By: #### C MPX, CDP #### [address] [place], [place] [id number] Chha: Khadar Tang MD Monocytes/100 WBC (Bld) 8 % Normal 3-12 [facility] Comment on above: Performed By: #### C MPX, CDP #### [address] [place], [place] [id number] Chha: Khadar Tang MD Neutrophil (Seg) 62 % Normal 36-65 [facility] Comment on above: Performed By: #### C MPX, CDP #### [facility] [address] [place], [facility]83 Chha: Khadar Tang MD NRBC Automated 0.0 per 100 WBC Normal 0.0 [facility] Comment on above: Performed By: #### C MPX, CDP #### [address] [place] [address] [place] [address] Chha: Khadar Tang MD Platelet mean volume (Bld) [Entitic vol] 8.7 fL Normal 8.1-13.5 [facility] Comment on above: Performed By: #### C MPX, CDP #### [address] [place], [place] [id number] Chha: Khadar Tang MD Platelets (Bld) [#/Vol] 263 10*3/uL Normal 138-453 [facility] Comment on above: Performed By: #### C MPX, CDP #### [address] [place] [address] [place] [address] Chha: Khadar Tang MD RBC (Bld) [#/Vol] 3.22 10*6/uL Low 4.21-5.77 [facility] Comment on above: Performed By: #### C MPX, CDP #### [address] [place] [address] [place] [address] Chha: Khadar Tang MD WBC (Bld) [#/Vol] 9.0 10*3/uL Normal 3.5-11.3 [facility] Comment on above: Performed By: #### C MPX, CDP #### [address] [place] [address] [place] [address] Chha: Khadar Tang MD Comp Metabolic Pr/rfx MGon 0 06-23-2022 Albumin [Mass/Vol] 2.9 g/dL Low 3.5-5.2 [facility] Comment on above: Performed By: #### C MPX, CDP #### [address] [place] [address] [place] [address] Chha: Khadar Tang MD Albumin/Glob Ratio 0.7 Low 1.0-2.5 [facility] Comment on above: Performed By: #### C MPX, CDP #### [facility] [address] [place], [place] [id number] Chha: Khadar Tang MD Alkaline Phos 89 U/L Normal 40-129 [facility] Comment on above: Performed By: #### C MPX, CDP #### [facility] [address] [place], [place] [address]83 Chha: Khadar Tang MD ALT [Catalytic activity/Vol] 11 U/L Normal 5-41 [facility] Comment on above: Performed By: #### C MPX, CDP #### [facility] [address] [place], [place] [id number] Chha: Khadar Tang MD Anion gap [Moles/Vol] 8 mmol/L Low 9-17 [facility] Comment on above: Performed By: #### C MPX, CDP #### [facility] [address] [place], [place] [address]383 Chha: Khadar Tang MD AST [Catalytic activity/Vol] 12 U/L Normal <40 [facility] Comment on above: Performed By: #### C MPX, CDP #### [facility] [address] [place], [place] [id number] Chha: Khadar Tang MD Bilirubin [Mass/Vol] 0.2 mg/dL Low 0.3-1.2 [facility] Comment on above: Performed By: #### C MPX, CDP #### [facility] [address] [place] [address] Chha: Khadar Tang MD BUN/CRE Ratio 25 High 9-20 [facility] Comment on above: Performed By: #### C MPX, CDP #### [facility] [address] [place] [address] Chha: Khadar Tang MD Calcium [Mass/Vol] 9.0 mg/dL Normal 8.6-10.4 [facility] Comment on above: Performed By: #### C MPX, CDP #### [facility] [address] [place], [place] [id number] Chha: Khadar Tang MD Chloride [Moles/Vol] 115 mmol/L High 98-107 [facility] Comment on above: Performed By: #### C MPX, CDP #### [facility] [address] [place] [address] [place] [address] Chha: Khadar Tang MD CO2 [Moles/Vol] 17 mmol/L Low 20-31 [facility] Comment on above: Performed By: #### C MPX, CDP #### [facility] [address] [place] [address] [place] [place], [place] [id number] Chha: Khadar Tang MD Creatinine [Mass/Vol] 1.55 mg/dL High 0.70-1.20 [facility] Comment on above: Performed By: #### C MPX, CDP #### [address] [place] [address] Chha: Khadar Tang MD GFR/1.73 sq M.predicted among non-blacks MDRD (S/P/Bld) [Vol rate/Area] 51 mL/min/{1.73_m2} Low >60 [facility] Comment on above: Result Comment: These results [...] Performed By: #### C MPX, CDP #### [facility] [address] [place], [place] [address]83 Chha: Khadar Tang MD Glucose [Mass/Vol] 119 mg/dL High 70-99 [facility] Comment on above: Performed By: #### C MPX, CDP #### [facility] [address] [place], [place] [id number] Chha: Khadar Tang MD Potassium [Moles/Vol] 5.4 mmol/L High 3.7-5.3 [facility] Comment on above: Performed By: #### C MPX, CDP #### [facility] [address] [place], [place] [id number] Chha: Khadar Tang MD Protein [Mass/Vol] 7.1 g/dL Normal 6.4-8.3 [facility] Comment on above: Performed By: #### C MPX, CDP #### [facility] [address] [place], [place] [id number] Chha: Khadar Tang MD Sodium [Moles/Vol] 140 mmol/L Normal 135-144 [facility] Comment on above: Performed By: #### C MPX, CDP #### [facility] [address] [place], [place] [id number] Chha: Khadar Tang MD Urea nitrogen [Mass/Vol] 38 mg/dL High 8-23 [facility] Comment on above: Performed By: #### C MPX, CDP #### [facility] [address] [place], [place] [id number] Chha: Khadar Tang MD Comprehensive Metabolic Pane l w/ Reflex to MGon 06-23-2022 Albumin [Mass/Vol] 2.9 g/dL Low 3.5 - 5.2 g/dL [facility] Albumin/Globulin [Mass ratio] 0.7 {ratio} Low 1.0 - 2.5 [facility] ALP [Catalytic activity/Vol] 89 U/L 40 - 129 U/L [facility] ALT [Catalytic activity/Vol] 11 U/L 5 - 41 U/L [facility] Anion gap [Moles/Vol] 8 mmol/L Low 9 - 17 mmol/L [facility] AST [Catalytic activity/Vol] 12 U/L NINF - 40 U/L [facility] Bilirubin [Mass/Vol] 0.2 mg/dL Low 0.3 - 1.2 mg/dL [facility] Calcium [Mass/Vol] 9.0 mg/dL 8.6 - 10. 4 mg/dL [facility] Chloride [Moles/Vol] 115 mmol/L High 98 - 107 mmol/L [facility] CO2 [Moles/Vol] 17 mmol/L Low 20 - 31 mmol/L [facility] Creatinine [Mass/Vol] 1.55 mg/dL High 0.70 - 1.20 mg/dL [facility] GFR/1.73 sq M.predicted MDRD (S/P/Bld) [Vol rate/Area] 51 mL/min/{1.73_m2} Low - PINF [facility] Comment on above: These results are not [...] mg/dL High 70 - 99 mg/dL [facility] Interpretation and review of laboratory results Abnormal [facility] Potassium [Moles/Vol] 5.4 mmol/L High 3.7 - 5.3 mmol/L [facility] Protein [Mass/Vol] 7.1 g/dL 6.4 - 8.3 g/dL [facility] Sodium [Moles/Vol] 140 mmol/L 135 - 144 mmol/L [facility] Urea nitrogen [Mass/Vol] 38 mg/dL High 8 - 23 mg/dL [facility] Urea nitrogen/Creatinin e (Bld) [Mass ratio] 25 High 9 - 20 [facility] EKG 12 LeadOrdered By: Michelle Tellez hmad on 06-23-2022 Atrial Rate 60 BPM [employer] Work Phone: P [place] 55 degrees [employer] Work Phone: P-R Interval 182 ms [employer] Work Phone: Q-T Interval 388 ms [employer] Work Phone: QRS Duration 88 ms [employer] Work Phone: QTc Calculation (Bazett) 388 ms [employer] Work Phone: R [place] 15 degrees [employer] Work Phone: T [place] 40 degrees [employer] Work Phone: Ventricular Rate 60 BPM [employer] Work Phone: [facility] Work Phone: EKG 12 Leadon 06-23-2022 Poor data qualit y, interpretation may be adversely affected Normal sinus rhythm Normal ECG When compared with ECG of 22-JUN-2022 13:14, (unconfirmed) Borderline criteria for Anterolateral infarct are no longer Present Criteria for Inferior infarct are no longer Present T wave inversion no longer evident in Inferior leads Confirmed by Michelle Noe MD ([id number]) on 06/23/2022 3:18:16 PM [facility] Michelle Noe MD - 06/23/2022 Poor data quality, interpretation may be adversely affected Normal sinus rhythm Normal ECG When compared with ECG of 22-JUN-2022 13:14, (unconfirmed) Borderline criteria for Anterolateral infarct are no longer Present Criteria for Inferior infarct are no longer Present T wave inversion no longer evident in Inferior leads Confirmed by Michelle Noe MD ([id number]) on 06/23/2022 3:18:16 PM [employer] Work Phone: EKG Rhythm Stripon 3 [facility] Glucose, Whole Bloodon 06-23 Glucose [Mass/Vol] 230 mg/dL High 74 - 100 mg/dL [facility] Interpretation and review of laboratory results Abnormal [facility] Urinalysison 06-23-2022 Bilirubin Urine Negative NEGATIVE [facility] Color, UA Yellow Yellow [facility] Glucose Auto test strip (U) [Mass/Vol] Negative NEGATIVE [facility] Ketones (U) [Mass/Vol] Negative NEGATIVE [facility] Leukocyte esterase Auto test strip Ql (U) Negative NEGATIVE [facility] Nitrite Auto test strip Ql (U) Negative NEGATIVE [facility] Protein (U) [Mass/Vol] 6.0 mg/dL 5.0 - 9.0 [facility] Protein (U) [Mass/Vol] Negative NEGATIVE [facility] Specific [place], UA 1.020 1.010 - 1.020 [facility] Turbidity UA Clear Clear [facility] Urine Hgb Negative NEGATIVE [facility] Urobilinogen, Urine Normal Normal [facility] Urinalysis, Routineon 2022 Bilirubin, SemiQt,Ur Negative Normal NEG [facility] Comment on above: Performed By: #### U A #### [facility] [address] [place] [address] Chha: Khadar Tang MD Blood, Urine Negative Normal NEG [facility] Comment on above: Performed By: #### U A #### [facility] [address] [place] [address] Chha: Khadar Tang MD Clarity (U) Clear Normal CLEAR [facility] Comment on above: Performed By: #### U A #### [facility] [address] [place] [place] [address] Chha: Khadar Tang MD Color (U) Yellow Normal YEL [facility] Comment on above: Performed By: #### U A #### [facility] [address] [place] [address] Dr. [place], [place] [id number] Chha: Khadar Tang MD Glucose Ql (U) Negative Normal NEG [facility] in Hospital Comment on above: Performed By: #### U A #### [facility] [address] [place] [address] Dr. [place], [place] [id number] Chha: Khadar Tang MD Ketones Ql (U) Negative Normal NEG [facility] Comment on above: Performed By: #### U A #### [address] [place], [place] [id number] Chha: Khadar Tang MD Leukocyte esterase Test strip Ql (U) Negative Normal NEG [facility] Comment on above: Performed By: #### U A #### [address] [place], [place] [id number] Chha: Khadar Tang MD Nitrite,Ur Negative Normal NEG [facility] Comment on above: Performed By: #### U A #### [address] [place], [place] [id number] Chha: Khadar Tang MD PH,Ur 6.0 Normal 5.0-9.0 [facility] Comment on above: Performed By: #### U A #### [facility] [address] [place] [address] Dr. [place], [place] [id number] Chha: Khadar Tang MD Protein Ql (U) Negative Normal NEG [facility] Comment on above: Performed By: #### U A #### [address] [place] [address] [place] [address] Chha: Khadar Tang MD Spec. [place],Ur 1.020 Normal 1.010-1.020 [facility] Comment on above: Performed By: #### U A #### [facility] [address] [place] [address] Chha: Khadar Tang MD Urobilinogen,Ur Normal Normal NORM [facility] Comment on above: Performed By: #### U A #### [facility] [address] [place] [address] Chha: Khadar Tang MD XR ANKLE RIGHT (MIN [...] Derrick Squires MD 06/23/22 Final result Normal [facility] 1. Nonspecific diffu se subcutaneous edema. 2. Periostitis at the lateral aspect of the fibula distally. There was osteomyelitis in this region previously. This could reflect chronic osteomyelitis. Elsewhere, there is no subcutaneous air or evidence of osteomyelitis. [facility] RIS CONSOLIDATED EXAMINATION: THREE XRAY VIEWS [...] lesion is noted. Calcaneal spurring appears unchanged. [facility]IS Derrick Stern MD - 06/23/2022 [...] no subcutaneous air or evidence of osteomyelitis. [employer] Work Phone: Radiology Study observation (narrative) [employer] Phone: XR ANKLE RIGHT (MIN 3 VIEWS) Ordered By: Derrick Squires on 06-23-2022 [employer] Phone: Basic Metabolic Panelon 05-28 Anion gap [Moles/Vol] 9 mmol/L 9 - 17 mmol/L [facility] Calcium [Mass/Vol] 9.5 mg/dL 8.6 - 10. 4 mg/dL [facility] Chloride [Moles/Vol] 112 mmol/L High 98 - 107 mmol/L [facility] CO2 [Moles/Vol] 17 mmol/L Low 20 - 31 mmol/L [facility] Creatinine [Mass/Vol] 2 mg/dL High 0.70 - 1.20 mg/dL [facility] GFR/1.73 sq M.predicted MDRD (S/P/Bld) [Vol rate/Area] 38 mL/min/{1.73_m2} Low - PINF [facility] Comment on above: These results are not [...] mg/dL High 70 - 99 mg/dL [facility] Interpretation and review of laboratory results Abnormal [facility] Potassium [Moles/Vol] 6.1 mmol/L Critically high 3.7 - 5.3 mmol/L [facility] Sodium [Moles/Vol] 138 mmol/L 135 - 144 mmol/L [facility] Urea nitrogen [Mass/Vol] 45 mg/dL High 8 - 23 mg/dL [facility] Urea nitrogen/Creatinin e (Bld) [Mass ratio] 23 High 9 - 20 [facility] Basic Metabolic Profon 06-22 Potassium [Moles/Vol] 6.1 mmol/L Critically high 3.7-5.3 [facility] Comment on above: Performed By: #### T ROPI #### [facility] [address] [place] [address] [place] [address] Chha: Khadar Tang MD Anion gap [Moles/Vol] 9 mmol/L Normal 9-17 [facility] Comment on above: Performed By: #### T ROPI #### [facility] [address] [place] [address] Chha: Khadar Tang MD BUN/CRE Ratio 23 High 9-20 [facility] Comment on above: Performed By: #### T ROPI #### [facility] [address] [place] [address] Chha: Khadar Tang MD Calcium [Mass/Vol] 9.5 mg/dL Normal 8.6-10.4 [facility] Comment on above: Performed By: #### T ROPI #### [facility] [address] [place] [address] Chha: Khadar Tang MD Chloride [Moles/Vol] 112 mmol/L High 98-107 [facility] Comment on above: Performed By: #### T ROPI #### [facility] [address] [place] [address] Chha: Khadar Tang MD CO2 [Moles/Vol] 17 mmol/L Low 20-31 [facility] Comment on above: Performed By: #### T ROPI #### [facility] [address] [place] [address] Chha: Khadar Tang MD Creatinine [Mass/Vol] 2.00 mg/dL High 0.70-1.20 [facility] Comment on above: Performed By: #### T ROPI #### [facility] [address] [place] [address] Chha: Khadar Tang MD GFR/1.73 sq M.predicted among non-blacks MDRD (S/P/Bld) [Vol rate/Area] 38 mL/min/{1.73_m2} Low >60 [facility] Comment on above: Result Comment: These results [...] secretion. Performed By: #### T ROPI #### [facility] [address] [place] [address] Chha: Khadar Tang MD Glucose [Mass/Vol] 137 mg/dL High 70-99 [facility] Comment on above: Performed By: #### T ROPI #### [facility] [address] [place] [address] Chha: Khadar Tang MD Sodium [Moles/Vol] 138 mmol/L Normal 135-144 [facility] Comment on above: Performed By: #### T ROPI #### [facility] [address] [place] [address] Chha: Khadar Tang MD Urea nitrogen [Mass/Vol] 45 mg/dL High 8-23 [facility] Comment on above: Performed By: #### T ROPI #### [facility] [address] [place] [address] Chha: Khadar Tang MD CBC with Auto Differentialon 06-22-2022 Absolute Eos # 0.86 High [place] [facility] Absolute Immature Granulocyte 0.09 [facility] Absolute Lymph # 1.97 [facility] Absolute [place] # 0.88 [facility] Basophils (Bld) [#/Vol] 0.05 10*3/uL [facility] Basophils/100 WBC (Bld) 0 % 0 - 2 % [facility] Eosinophils/100 WBC (Bld) 7 % High 1 - 4 % [facility] Hematocrit (Bld) [Volume fraction] 27.6 % Low 40.7 - 50.3 % [facility] Hemoglobin (Bld) [Mass/Vol] 8.3 g/dL Low 13.0 - 17.0 g/dL [facility] Immature granulocytes/100 WBC (Bld) 1 % High 0 [facility] Interpretation and review of laboratory results Abnormal [facility] Lymphocytes/100 WBC (Bld) 15 % Low 24 - 43 % [facility] MCH (RBC) [Entitic mass] 23.3 pg Low 25.2 - 33.5 pg [facility] MCHC (RBC) [Mass/Vol] 30.1 g/dL 28.4 - 34.8 g/dL [facility] MCV (RBC) [Entitic vol] 77.5 fL Low 82.6 - 102.9 fL [facility] Monocytes/100 WBC (Bld) 7 % 3 - 12 % [facility] NRBC Automated 0.0 0.0 per 100 WBC [facility] Platelet distribution width (Bld) [Ratio] 16.2 % High 11.8 - 14.4 % [facility] Platelet mean volume (Bld) [Entitic vol] 8.6 fL 8.1 - 13.5 fL [facility] Platelets (Bld) [#/Vol] 338 10*3/uL [facility] RBC (Bld) [#/Vol] 3.56 10*6/uL Low 4.21 - 5.7 7 m/uL [facility] Segmented neutrophils/100 WBC (Bld) 70 % High 36 - 65 % [facility] Segs Absolute 8.91 High [facility] WBC (Bld) [#/Vol] 12.8 10*3/uL High [facility] Absolute Eos # 0.84 High [facility] Absolute Immature Granulocyte 0.06 [facility] Absolute Lymph # 1.69 [facility] Absolute [place] # 0.82 [facility] Basophils (Bld) [#/Vol] 0.04 10*3/uL [facility] Basophils/100 WBC (Bld) 0 % 0 - 2 % [facility] Eosinophils/100 WBC (Bld) 7 % High 1 - 4 % [facility] Hematocrit (Bld) [Volume fraction] 27.1 % Low 40.7 - 50.3 % [facility] Hemoglobin (Bld) [Mass/Vol] 8.7 g/dL Low 13.0 - 17.0 g/dL [facility] Immature granulocytes/100 WBC (Bld) 1 % High 0 [facility] Interpretation and review of laboratory results Abnormal [facility] Lymphocytes/100 WBC (Bld) 14 % Low 24 - 43 % [facility] MCH (RBC) [Entitic mass] 25.3 pg 25.2 - 33.5 pg [facility] MCHC (RBC) [Mass/Vol] 32.1 g/dL 28.4 - 34.8 g/dL [facility] MCV (RBC) [Entitic vol] 78.8 fL Low 82.6 - 102.9 fL [facility] Monocytes/100 WBC (Bld) 7 % 3 - 12 % [facility] NRBC Automated 0.0 0.0 per 100 WBC [facility] Platelet distribution width (Bld) [Ratio] 16.4 % High 11.8 - 14.4 % [facility] Platelet mean volume (Bld) [Entitic vol] 9.4 fL 8.1 - 13.5 fL [facility] Platelets (Bld) [#/Vol] 345 10*3/uL [facility] RBC (Bld) [#/Vol] 3.44 10*6/uL Low 4.21 - 5.7 7 m/uL [facility] Segmented neutrophils/100 WBC (Bld) 71 % High 36 - 65 % [facility] Segs Absolute 9.06 High [facility] WBC (Bld) [#/Vol] 12.5 10*3/uL High [facility] CBC with Diffon 06-22-2022 Abs. Basophil 0.05 k/uL Normal 0.00-0.20 [facility] Comment on above: Performed By: #### C MG ZANDER, CP #### [address] [place] [place] [address] Chha: Khadar Tang MD Abs.Imm.Granulocyt e 0.09 k/uL Normal 0.00-0.30 [facility] Comment on above: Performed By: #### C MG ZANDER, CP #### [facility] [address] [place] [address] Dr. [place], [place] [id number] Chha: Khadar Tang MD Abs.Neutrophil (Seg) 8.91 k/uL High 1.50-8.10 [facility] Comment on above: Performed By: #### C ZANDER MG, CP #### [address] [place], [place] [id number] Chha: Khadar Tang MD Basophils/100 WBC (Bld) 0 % Normal 0-2 [facility] Comment on above: Performed By: #### C DP, MG, CP #### [facility] [address] [place] [address] Dr. [place], [place] [address] Chha: Khadar Tang MD Eosinophils (Bld) [#/Vol] 0.86 10*3/uL High 0.00-0.44 [facility] Comment on above: Performed By: #### C DP, MG, CP #### [address] [place], [place] [address] Chha: Khadar Tang MD Eosinophils/100 WBC (Bld) 7 % High 1-4 [facility] Comment on above: Performed By: #### C DP, MG, CP #### [address] [place] [place] [address] Chha: Khadar Tang MD Erythrocyte distribution width (RBC) [Ratio] 16.2 % High 11.8-14.4 [facility] Comment on above: Performed By: #### C DP, MG, CP #### [address] [place] [place] [address] Chha: Khadar Tang MD Hematocrit (Bld) [Volume fraction] 27.6 % Low 40.7-50.3 [facility] Comment on above: Performed By: #### C DP, MG, CP #### [address] [place], [facility]83 Chha: Khadar Tang MD Hemoglobin (Bld) [Mass/Vol] 8.3 g/dL Low 13.0-17.0 [facility] Comment on above: Performed By: #### C DP, MG, CP #### [address] [place] [address] Chha: Khadar Tang MD Immature granulocytes/100 WBC (Bld) 1 % High 0 [facility] Comment on above: Performed By: #### C DP, MG, CP #### [address] [place], [place] [id number] Chha: Khadar Tang MD Lymphocytes (Bld) [#/Vol] 1.97 10*3/uL Normal 1.10-3.70 [facility] Comment on above: Performed By: #### C DP, MG, CP #### [address] [place], [facility]83 Chha: Khadar Tang MD Lymphocytes/100 WBC (Bld) 15 % Low 24-43 [facility] Comment on above: Performed By: #### C DP, MG, CP #### [address] [place] [address] Chha: Khadar Tang MD MCH (RBC) [Entitic mass] 23.3 pg Low 25.2-33.5 [facility] Comment on above: Performed By: #### C DP, MG, CP #### [address] [place], [facility]83 Chha: Khadar Tang MD MCHC (RBC) [Mass/Vol] 30.1 g/dL Normal 28.4-34.8 [facility] Comment on above: Performed By: #### C DP, MG, CP #### [address] [place], [place] [address] Chha: Khadar Tang MD MCV (RBC) [Entitic vol] 77.5 fL Low 82.6-102.9 [facility] Comment on above: Performed By: #### C DP, MG, CP #### [address] [place] [address] Chha: Khadar Tang MD Monocytes (Bld) [#/Vol] 0.88 10*3/uL Normal 0.10-1.20 [facility] Comment on above: Performed By: #### C DP, MG, CP #### [facility] [address] [place] [address] [place] [address] Chha: Khadar Tang MD Monocytes/100 WBC (Bld) 7 % Normal 3-12 [facility] Comment on above: Performed By: #### C DP, MG, CP #### [facility] [address] [place], [place] [address] Chha: Khadar Tang MD Neutrophil (Seg) 70 % High 36-65 [facility] Comment on above: Performed By: #### C DP, MG, CP #### [address] [place] [place] [address] Chha: Khadar Tang MD NRBC Automated 0.0 per 100 WBC Normal 0.0 [facility] Comment on above: Performed By: #### C DP, MG, CP #### [address] [place], [place] [address] Chha: Khadar Tang MD Platelet mean volume (Bld) [Entitic vol] 8.6 fL Normal 8.1-13.5 [facility] Comment on above: Performed By: #### C DP, MG, CP #### [address] [place], [place] [address] Chha: Khadar Tang MD Platelets (Bld) [#/Vol] 338 10*3/uL Normal 138-453 [facility] Comment on above: Performed By: #### C DP, MG, CP #### [address] [place], [facility]83 Chha: Khadar Tang MD RBC (Bld) [#/Vol] 3.56 10*6/uL Low 4.21-5.77 [facility] Comment on above: Performed By: #### C DP, MG, CP #### [address] [place], [place] [address] Chha: Khadar Tang MD WBC (Bld) [#/Vol] 12.8 10*3/uL High 3.5-11.3 [facility] Comment on above: Performed By: #### C DP, MG, CP #### [address] [place] [place] [address] Chha: Khadar Tang MD Abs. Basophil 0.04 k/uL Normal 0.00-0.20 [facility] Comment on above: Performed By: #### T ROPI #### [address] [place] [place] [address] Chha: Khadar Tang MD Abs.Imm.Granulocyt e 0.06 k/uL Normal 0.00-0.30 [facility] Comment on above: Performed By: #### T ROPI #### [address] [place] [place] [address] Chha: Khadar Tang MD Abs.Neutrophil (Seg) 9.06 k/uL High 1.50-8.10 [facility] Comment on above: Performed By: #### T ROPI #### [address] [place], [facility]83 Chha: Khadar Tang MD Basophils/100 WBC (Bld) 0 % Normal 0-2 [facility] Comment on above: Performed By: #### T ROPI #### [address] [place], [place] [address] Chha: Khadar Tang MD Eosinophils (Bld) [#/Vol] 0.84 10*3/uL High 0.00-0.44 [facility] Comment on above: Performed By: #### T ROPI #### [address] [place], [facility]83 Chha: Khadar Tang MD Eosinophils/100 WBC (Bld) 7 % High 1-4 [facility] Comment on above: Performed By: #### T ROPI #### [facility] [address] [place] [address] Chha: Khadar Tang MD Erythrocyte distribution width (RBC) [Ratio] 16.4 % High 11.8-14.4 [facility] Comment on above: Performed By: #### T ROPI #### [facility] [address] [place] [address] Chha: Khadar Tang MD Hematocrit (Bld) [Volume fraction] 27.1 % Low 40.7-50.3 [facility] Comment on above: Performed By: #### T ROPI #### [address] [place] [id number] Chha: Khadar Tang MD Hemoglobin (Bld) [Mass/Vol] 8.7 g/dL Low 13.0-17.0 [facility] Comment on above: Performed By: #### T ROPI #### [address] [place], [place] [address] Chha: Khadar Tnag MD Immature granulocytes/100 WBC (Bld) 1 % High 0 [facility] Comment on above: Performed By: #### T ROPI #### [facility] [address] [place] [address] Dr. [place], [place] [address] Chha: Khadar Tang MD Lymphocytes (Bld) [#/Vol] 1.69 10*3/uL Normal 1.10-3.70 [facility] Comment on above: Performed By: #### T ROPI #### [facility] [address] [place] [id number] Chha: Khadar Tang MD Lymphocytes/100 WBC (Bld) 14 % Low 24-43 [facility] Comment on above: Performed By: #### T ROPI #### [facility] [address] [place], [place] [id number] Chha: Khadar Tang MD MCH (RBC) [Entitic mass] 25.3 pg Normal 25.2-33.5 [facility] Comment on above: Performed By: #### T ROPI #### [facility] [address] [place], [facility]83 Chha: Khadar Tang MD MCHC (RBC) [Mass/Vol] 32.1 g/dL Normal 28.4-34.8 [facility] Comment on above: Performed By: #### T ROPI #### [facility] [address] [place], [facility]83 Chha: Khadar Tang MD MCV (RBC) [Entitic vol] 78.8 fL Low 82.6-102.9 [facility] Comment on above: Performed By: #### T ROPI #### [facility] [address] [place], [facility]83 Chha: Khadar Tang MD Monocytes (Bld) [#/Vol] 0.82 10*3/uL Normal 0.10-1.20 [facility] Comment on above: Performed By: #### T ROPI #### [facility] [address] [place], [facility]83 Chha: Khadar Tang MD Monocytes/100 WBC (Bld) 7 % Normal 3-12 [facility] [facility] Comment on above: Performed By: #### T ROPI #### [facility] [address] [place] [address] Chha: Khadar Tang MD Neutrophil (Seg) 71 % High 36-65 [facility] Comment on above: Performed By: #### T ROPI #### [facility] [address] [place] [address] Chha: Khadar Tang MD NRBC Automated 0.0 per 100 WBC Normal 0.0 [facility] Comment on above: Performed By: #### T ROPI #### [facility] [address] [place], [place] [id number] Chha: Khadar Tang MD Platelet mean volume (Bld) [Entitic vol] 9.4 fL Normal 8.1-13.5 [facility] Comment on above: Performed By: #### T ROPI #### [facility] [address] [place], [place] [id number] Chha: Khadar Tang MD Platelets (Bld) [#/Vol] 345 10*3/uL Normal 138-453 [facility] Comment on above: Performed By: #### T ROPI #### [facility] [address] [place], [place] [id number] Chha: Khadar Tang MD RBC (Bld) [#/Vol] 3.44 10*6/uL Low 4.21-5.77 [facility] Comment on above: Performed By: #### T ROPI #### [facility] [address] [place], [place] [id number] Chha: Khadar Tang MD WBC (Bld) [#/Vol] 12.5 10*3/uL High 3.5-11.3 [facility] Comment on above: Performed By: #### T ROPI #### [facility] [address] [place], [place] [id number] Chha: Khadar Tang MD CMPon 06-22-2022 Albumin [Mass/Vol] 3.2 g/dL Low 3.5 - 5.2 g/dL [facility] Albumin/Globulin [Mass ratio] 0.7 {ratio} Low 1.0 - 2.5 [facility] ALP [Catalytic activity/Vol] 101 U/L 40 - 129 U/L [facility] ALT [Catalytic activity/Vol] 8 U/L 5 - 41 U/L [facility] Anion gap [Moles/Vol] 11 mmol/L 9 - 17 mmol/L [facility] AST [Catalytic activity/Vol] 13 U/L NINF - 40 U/L [facility] Bilirubin [Mass/Vol] mg/dL Low 0.3 - 1.2 mg/dL [facility] Calcium [Mass/Vol] 9.1 mg/dL 8.6 - 10. 4 mg/dL [facility] Chloride [Moles/Vol] 110 mmol/L High 98 - 107 mmol/L [facility] CO2 [Moles/Vol] 16 mmol/L Low 20 - 31 mmol/L [facility] Creatinine [Mass/Vol] 1.93 mg/dL High 0.70 - 1.20 mg/dL [facility] GFR/1.73 sq M.predicted MDRD (S/P/Bld) [Vol rate/Area] 39 mL/min/{1.73_m2} Low - PINF [facility] Comment on above: These results are not [...] mg/dL High 70 - 99 mg/dL [facility] Interpretation and review of laboratory results Abnormal [facility] Potassium [Moles/Vol] 6.3 mmol/L Critically high 3.7 - 5.3 mmol/L [facility] Protein [Mass/Vol] 8.1 g/dL 6.4 - 8.3 g/dL [facility] Sodium [Moles/Vol] 137 mmol/L 135 - 144 mmol/L [facility] Urea nitrogen [Mass/Vol] 49 mg/dL High 8 - 23 mg/dL [facility] Urea nitrogen/Creatinin e (Bld) [Mass ratio] 25 High 9 - 20 [facility] Comp Metabolic Profon 2022 Bilirubin [Mass/Vol] mg/dL Low 0.3-1.2 [facility] Comment on above: Performed By: #### C DP, MG, CP #### [facility] [address] [place], [place] [id number] Chha: Khadar Tang MD Potassium [Moles/Vol] 6.3 mmol/L Critically high 3.7-5.3 [facility] Comment on above: Performed By: #### C DP, MG, CP #### [facility] [address] [place], [place] [id number] Chha: Khadar Tang MD Albumin [Mass/Vol] 3.2 g/dL Low 3.5-5.2 [facility] Comment on above: Performed By: #### C DP, MG, CP #### [facility] [address] [place] [address] [address]. [place], [place] [id number] Chha: Khadar Tang MD Albumin/Glob Ratio 0.7 Low 1.0-2.5 [facility] Comment on above: Performed By: #### C DP, MG, CP #### [facility] [address] [place], [place] [id number] Chha: Khadar Tang MD Alkaline Phos 101 U/L Normal 40-129 [facility] [place] Comment on above: Performed By: #### C DP, MG, CP #### [facility] [address] [place], [place] [id number] Chha: Khadar Tang MD ALT [Catalytic activity/Vol] 8 U/L Normal 5-41 [facility] Comment on above: Performed By: #### C DP, MG, CP #### [facility] [address] [place], [place] [id number] Chha: Khadar Tang MD Anion gap [Moles/Vol] 11 mmol/L Normal 9-17 [facility] Comment on above: Performed By: #### C DP, MG, CP #### [facility] [address] [place], [place] [id number] Chha: Khadar Tang MD AST [Catalytic activity/Vol] 13 U/L Normal <40 [facility] Comment on above: Performed By: #### C DP, MG, CP #### [facility] [address] [place] [address] Chha: Khadar Tang MD BUN/CRE Ratio 25 High 9-20 [facility] [place] Comment on above: Performed By: #### C DP, MG, CP #### [address] [place], [place] [id number] Chha: Khadar Tang MD Calcium [Mass/Vol] 9.1 mg/dL Normal 8.6-10.4 [facility] Comment on above: Performed By: #### C DP, MG, CP #### [facility] [address] [place] [address] [place]. [place], [place] [id number] Chha: Khadar Tang MD Chloride [Moles/Vol] 110 mmol/L High 98-107 [facility] Comment on above: Performed By: #### C DP, MG, CP #### [facility] [address] [place] [address] [place] [address] Chha: Khadar Tang MD CO2 [Moles/Vol] 16 mmol/L Low 20-31 [facility] Comment on above: Performed By: #### C DP, MG, CP #### [facility] [address] [place] [address] [place]. [place], [place] [id number] Chha: Khadar Tang MD Creatinine [Mass/Vol] 1.93 mg/dL High 0.70-1.20 [facility] Comment on above: Performed By: #### C DP, MG, CP #### [facility] [address] [place] [address] Dr. [place], [place] [id number] Chha: Khadar Tang MD GFR/1.73 sq M.predicted among non-blacks MDRD (S/P/Bld) [Vol rate/Area] 39 mL/min/{1.73_m2} Low >60 [facility] Comment on above: Result Comment: These results [...] By: #### C DP, MG, CP #### [address] [place] [address] [place] [address] Chha: Khadar Tang MD Glucose [Mass/Vol] 148 mg/dL High 70-99 [facility] Comment on above: Performed By: #### C DP, MG, CP #### [address] [place] [address] [place] [address] Chha: Khadar Tang MD Protein [Mass/Vol] 8.1 g/dL Normal 6.4-8.3 [facility] Comment on above: Performed By: #### C DP, MG, CP #### [address] [place] [address] [place] [address] Chha: Khadar Tang MD Sodium [Moles/Vol] 137 mmol/L Normal 135-144 [facility] Comment on above: Performed By: #### C DP, MG, CP #### [address] [place] [address] [place] [address] Chha: Khadar Tang MD Urea nitrogen [Mass/Vol] 49 mg/dL High 8-23 [facility] Comment on above: Performed By: #### C DP, MG, CP #### [facility] [address] [place] [address] [place] [address] Chha: Khadar Tang MD EKG 12 LeadOrdered By: Michelle gonzalezad on 06-22-2022 Atrial Rate 58 BPM [employer] Work Phone: P [place] 66 degrees [employer] Work Phone: P-R Interval 148 ms [employer] Work Phone: Q-T Interval 394 ms [employer] Work Phone: QRS Duration 94 ms [employer] Work Phone: QTc Calculation (Bazett) 386 ms [employer] Work Phone: R [place] 64 degrees [employer] Work Phone: T [place] -8 degrees [employer] Work Phone: Ventricular Rate 58 BPM [employer] Work Phone: [employer] Work Phone: EKG 12 Leadon 06-22-2022 Sinus bradycardia Inferior infarct , age undetermined Possible Anterolateral infarct , age undetermined Abnormal ECG When compared with ECG of 24-APR-2015 18:25, Vent. rate has decreased BY 39 BPM Borderline criteria for Anterolateral infarct are now Present T wave inversion now evident in Inferior leads QT has shortened Confirmed by Michelle Noe MD ([id number]) on 06/22/2022 10:09:31 PM [facility] Michelle Noe MD - 06/22/2022 Sinus bradycardia Inferior infarct , age undetermined Possible Anterolateral infarct , age undetermined Abnormal ECG When compared with ECG of 24-APR-2015 18:25, Vent. rate has decreased BY 39 BPM Borderline criteria for Anterolateral infarct are now Present T wave inversion now evident in Inferior leads QT has shortened Confirmed by Michelle Noe MD ([id number]) on 06/22/2022 10:09:31 PM [employer] Work Phone: Magnesiumon 06-22-2022 Magnesium [Mass/Vol] 2.0 mg/dL Normal 1.6-2.6 [facility] Comment on above: Performed By: #### C DP, MG, CP #### [facility] [address] [place] [address] [place] [address] Chha: Khadar Tang MD Magnesium [Mass/Vol] 2.0 mg/dL 1.6 - 2.6 mg/dL [facility] CT PELVIS WO CONon 2 CT PELVIS [...] JESUSITA PAPPAS Date: 2022-03-14 09:50 Normal [facility] GLYCOHEMOGLOBIN A1Con 2021 ADA RECOMMENDATION ADA THERAPEUTIC TARG ET 6.0 - 7.0 ACTION SUGGESTED > 7.0 Normal [facility] Comment on above: Performed By: #### A 1C #### [facility] [address] [address] [address] Juan Smith Glucose [Mass/Vol] 180 mg/dL Normal [facility] Comment on above: Performed By: #### A 1C #### [facility] [address] [place], [place] [address] Dr. Juan Smith HbA1c (Bld) [Mass fraction] 7.9 % Critically high <=6.0 [facility] Comment on above: Performed By: #### A 1C #### [facility] [address] [place], [place] [address] Dr. Juan Smith Cult,Aerobe/Anaerobeon 04-15 Neutrophils Specimen Description .TISSUE RIGHT MEDIAL HEEL POST IRRIGATIONSpecial Requests NOT REPORTEDDirect Exam NO NEUTROPHILS SEEN NO BACTERIA SEEN Culture METHICILLIN RESISTANT STAPHYLOCOCCUS AUREUS SCANT GROWTH For susceptibility, refer to previous culture. STREPTOCOCCI, BETA HEMOLYTIC GROUP C SCANT GROWTH DIPHTHEROIDS SCANT GROWTH NO ANAEROBIC ORGANISMS ISOLATED AT 5 DAYS Report Status FINAL 04/15/2017 Normal [facility] Comment on above: Performed By: #### A ANC ####[id number] [place] [address] Neutrophils Specimen Description .TISSUE RIGHT ANKLE PRE IRRIGATIONSpecial Requests NOT REPORTEDDirect Exam NO NEUTROPHILS SEEN RARE GRAM POSITIVE COCCI IN PAIRS Culture METHICILLIN RESISTANT STAPHYLOCOCCUS AUREUS LIGHT GROWTH For susceptibility, refer to previous culture. STREPTOCOCCI, BETA HEMOLYTIC GROUP C SCANT GROWTH NO ANAEROBIC ORGANISMS ISOLATED AT 5 DAYS Report Status FINAL 04/15/2017 Normal [facility] Comment on above: Performed By: #### A ANC ####[address] [address] Neutrophils Specimen Description .TISSUE RIGHT MEDIAL HEEL PRE IRRIGATIONSpecial Requests NOT REPORTEDDirect Exam NO NEUTROPHILS SEEN NO BACTERIA SEEN Culture STREPTOCOCCI, BETA HEMOLYTIC GROUP C LIGHT GROWTH METHICILLIN RESISTANT STAPHYLOCOCCUS AUREUS SCANT GROWTH For susceptibility, refer to previous culture. DIPHTHEROIDS LIGHT GROWTH NO ANAEROBIC ORGANISMS ISOLATED AT 5 DAYS Report Status FINAL 04/15/2017 Normal [facility] Comment on above: Performed By: #### A ANC ####[address] [address] Basic Metabolic Profon 04-13 (cont.) Normal [facility] Comment on above: Result Comment: Aver age GFR for 50-59 years old: 93 mL/min/1.73sq mChronic Kidney Disease: <60 mL/min/1.73sq mKidney failure: <15 mL/min/1.73sq meGFR calculated using average adult body mass. Additional eGFR calculator available at:http://www.Pharmaca/multiple_crcl_2012.htm[address] [place] [address] Performed By: #### C DP, CMPX, CRP, SED, GLYHGB ####[address] [address] Anion gap 11 mmol/L Normal 9-17 [facility] Comment on above: Performed By: #### C DP, CMPX, CRP, SED, GLYHGB ####[address] [address] Calcium 8.7 mg/dL Normal 8.6-10.4 [facility] Comment on above: Performed By: #### C DP, CMPX, CRP, SED, GLYHGB ####[address] [address] Chloride 106 mmol/L Normal 98-107 [facility] Comment on above: Performed By: #### C DP, CMPX, CRP, SED, GLYHGB ####[facility] [address] [place] [address] CO2 22 mmol/L Normal 20-31 [facility] Comment on above: Performed By: #### C DP, CMPX, CRP, SED, GLYHGB ####[address] [place] [address] Creatinine 1.04 mg/dL Normal 0.70-1.20 [facility] Comment on above: Performed By: #### C DP, CMPX, CRP, SED, GLYHGB ####[address] [address] eGFR (non-black) mL/min/{1.73_m2} Normal >60 [facility] Comment on above: Performed By: #### C DP, CMPX, CRP, SED, GLYHGB ####[address] [address] Glucose mass conc 174 mg/dL High 70-99 [facility] Comment on above: Performed By: #### C DP, CMPX, CRP, SED, GLYHGB ####[address] [place] [address] Potassium molar conc 4.1 mmol/L Normal 3.7-5.3 [facility] Comment on above: Performed By: #### C DP, CMPX, CRP, SED, GLYHGB ####[address] [place] [address] Sodium 139 mmol/L Normal 135-144 [facility] Comment on above: Performed By: #### C DP, CMPX, CRP, SED, GLYHGB ####[address] [place] [address] Urea nitrogen 16 mg/dL Normal 6-20 [facility] Comment on above: Performed By: #### C DP, CMPX, CRP, SED, GLYHGB ####[address] [place] [address] BUN/CRE Ratio NOT REPORTED Normal - [facility] Comment on above: Performed By: #### C DP, CMPX, CRP, SED, GLYHGB ####[address] [address] Staging: NOT REPORTED Normal [facility] Comment on above: Performed By: #### C DP, CMPX, CRP, SED, GLYHGB ####[address] [address] CBC with Diffon 04-13-2017 Abs. Basophil <0.03 Normal 0.00-0.20 [facility] Comment on above: Performed By: #### C DP, CMPX, CRP, SED, GLYHGB ####[address] [address] Abs.Neutrophil (Seg) 4.97 k/uL Normal 1.50-8.10 [facility] Comment on above: Performed By: #### C DP, CMPX, CRP, SED, GLYHGB ####[address] [address] Basophils/100 WBC Auto (Bld) 0 % Normal 0-2 [facility] Comment on above: Performed By: #### C DP, CMPX, CRP, SED, GLYHGB ####[address] [address] Eosinophils 0.24 10*3/uL Normal 0.00-0.44 [facility] Comment on above: Performed By: #### C DP, CMPX, CRP, SED, GLYHGB ####[address] [address] Eosinophils/100 leukocytes 3 % Normal 1-4 [facility] Comment on above: Performed By: #### C DP, CMPX, CRP, SED, GLYHGB ####[address] [address] Erythrocyte distribution width Auto Ratio (RBC) 14.8 % High 11.8-14.4 [facility] Comment on above: Performed By: #### C DP, CMPX, CRP, SED, GLYHGB ####[address] [address] Erythrocyte morphology ANISOCYTOSIS PRESENT Normal [facility] Comment on above: Result Comment: [address] [address] Performed By: #### C DP, CMPX, CRP, SED, GLYHGB ####[address] [address] Erythrocytes (RBC) 0.0 per 100 WBC Normal 0.0 M [facility] Comment on above: Performed By: #### C DP, CMPX, CRP, SED, GLYHGB ####[address] [address] Erythrocytes (RBC) 3.42 10*6/uL Low 4.21-5.77 [facility] Comment on above: Performed By: #### C DP, CMPX, CRP, SED, GLYHGB ####[address] [address] Granulocytes/100 WBC (Bld) 0.19 k/uL Normal 0.00-0.30 [facility] Comment on above: Performed By: #### C DP, CMPX, CRP, SED, GLYHGB ####[address] [address] Hematocrit (HCT) 29.4 % Low 40.7-50.3 [facility] Comment on above: Performed By: #### C DP, CMPX, CRP, SED, GLYHGB ####[address] [address] Hemoglobin mass conc (Bld) 8.8 g/dL Low 13.0-17.0 [facility] Comment on above: Performed By: #### C DP, CMPX, CRP, SED, GLYHGB ####[address] [address] Immature granulocytes #/vol (Bld) 2 % High 0 [facility] Comment on above: Performed By: #### C DP, CMPX, CRP, SED, GLYHGB ####[address] [address] Lymphocytes 2.00 10*3/uL Normal 1.10-3.70 [facility] Comment on above: Performed By: #### C DP, CMPX, CRP, SED, GLYHGB ####[address] [address] Lymphocytes/100 leukocytes 25 % Normal 24-43 [facility] Comment on above: Performed By: #### C DP, CMPX, CRP, SED, GLYHGB ####[address] [address] MCH 25.7 pg Normal 25.2-33.5 [facility] Comment on above: Performed By: #### C DP, CMPX, CRP, SED, GLYHGB ####[address] [address] MCHC mass conc (RBC) 29.9 g/dL Normal 28.4-34.8 [facility] Comment on above: Performed By: #### C DP, CMPX, CRP, SED, GLYHGB ####[address] [address] MCV 86.0 fL Normal 82.6-102.9 [facility] Comment on above: Performed By: #### C DP, CMPX, CRP, SED, GLYHGB ####[address] [address] Monocytes 0.53 10*3/uL Normal 0.10-1.20 [facility] Comment on above: Performed By: #### C DP, CMPX, CRP, SED, GLYHGB ####[address] [address] Monocytes/100 leukocytes 7 % Normal 3-12 [facility] Comment on above: Performed By: #### C DP, CMPX, CRP, SED, GLYHGB ####[address] [address] Neutrophil (Seg) 63 % Normal 36-65 [facility] Comment on above: Performed By: #### C DP, CMPX, CRP, SED, GLYHGB ####[address] [address] Platelet mean volume (PMV) 9.9 fL Normal 8.1-13.5 [facility] Comment on above: Performed By: #### C DP, CMPX, CRP, SED, GLYHGB ####[address] [address] Platelets 257 10*3/uL Normal 138-453 [facility] Comment on above: Performed By: #### C DP, CMPX, CRP, SED, GLYHGB ####[address] [address] WBC (Leukocytes) 8.0 10*3/uL Normal 3.5-11.3 [facility] Comment on above: Performed By: #### C DP, CMPX, CRP, SED, GLYHGB ####[address] [address] Auto Diff Performed NOT REPORTED Normal [facility] Comment on above: Performed By: #### C DP, CMPX, CRP, SED, GLYHGB ####[facility] [id number] [place], [place] [id number] Platelets NOT REPORTED Normal [facility] Comment on above: Performed By: #### C DP, CMPX, CRP, SED, GLYHGB ####[facility] [id number] [place], [place] [id number] WBC Morphology NOT REPORTED Normal [facility] Comment on above: Performed By: #### C DP, CMPX, CRP, SED, GLYHGB ####[facility] [address] [place] [address] [id number] Discharge Summaryon 04-13-19 18 HIM IP Note OR Vice Admiral Normal [facility] Plan of Careon 04-13-2017 HIM IP Note OR Vice Admiral Normal [facility] HIM IP Note OR Vice Admiral Normal [facility] Progress Noteon 04-13-2017 HIM IP Note OR Vice Admiral Normal [facility] HIM IP Note OR Vice Admiral Normal [facility] HIM IP Note OR Vice Admiral Normal [facility] HIM IP Note OR Vice Admiral Normal [facility] HIM IP Note OR Vice Admiral Normal [facility] HIM IP Note OR Vice Admiral Normal [facility] Basic Metabolic Profon 04-12 (cont.) Normal [facility] Comment on above: Result Comment: Aver age GFR for 50-59 years old: 93 mL/min/1.73sq mChronic Kidney Disease: <60 mL/min/1.73sq mKidney failure: <15 mL/min/1.73sq meGFR calculated using average adult body mass. Additional eGFR calculator available at:http://www.Iptune.[employer]/multiple_crcl_2012.htm[facility] [address] [place], [place] [id number] ([phone] Performed By: #### C DP, CMPX, CRP, SED, GLYHGB ####[address] [place] [address] Anion gap 8 mmol/L Low 9-17 [facility] Comment on above: Performed By: #### C DP, CMPX, CRP, SED, GLYHGB ####[address] [address] Calcium 8.8 mg/dL Normal 8.6-10.4 [facility] Comment on above: Performed By: #### C DP, CMPX, CRP, SED, GLYHGB ####[address] [address] Chloride 107 mmol/L Normal 98-107 [facility] Comment on above: Performed By: #### C DP, CMPX, CRP, SED, GLYHGB ####[address] [address] CO2 23 mmol/L Normal 20-31 [facility] Comment on above: Performed By: #### C DP, CMPX, CRP, SED, GLYHGB ####[address] [address] Creatinine 1.01 mg/dL Normal 0.70-1.20 [facility] Comment on above: Performed By: #### C DP, CMPX, CRP, SED, GLYHGB ####[address] [address] eGFR (non-black) mL/min/{1.73_m2} Normal >60 [facility] Comment on above: Performed By: #### C DP, CMPX, CRP, SED, GLYHGB ####[address] [address] Glucose mass conc 172 mg/dL High 70-99 [facility] Comment on above: Performed By: #### C DP, CMPX, CRP, SED, GLYHGB ####[address] [address] Potassium molar conc 3.9 mmol/L Normal 3.7-5.3 [facility] Comment on above: Performed By: #### C DP, CMPX, CRP, SED, GLYHGB ####[address] [address] Sodium 138 mmol/L Normal 135-144 [facility] Comment on above: Performed By: #### C DP, CMPX, CRP, SED, GLYHGB ####[address] [address] Urea nitrogen 15 mg/dL Normal 6-20 [facility] Comment on above: Performed By: #### C DP, CMPX, CRP, SED, GLYHGB ####[address] [address] BUN/CRE Ratio NOT REPORTED Normal -20 [facility] Comment on above: Performed By: #### C DP, CMPX, CRP, SED, GLYHGB ####[address] [address] Staging: NOT REPORTED Normal [facility] Comment on above: Performed By: #### C DP, CMPX, CRP, SED, GLYHGB ####[address] [address] CBC with Diffon 04-12-2017 Abs. Basophil <0.03 Normal 0.00-0.20 [facility] Comment on above: Performed By: #### C DP, CMPX, CRP, SED, GLYHGB ####[address] [address] Abs.Neutrophil (Seg) 4.31 k/uL Normal 1.50-8.10 [facility] Comment on above: Performed By: #### C DP, CMPX, CRP, SED, GLYHGB ####[address] [address] Basophils/100 WBC Auto (Bld) 0 % Normal 0-2 [facility] Comment on above: Performed By: #### C DP, CMPX, CRP, SED, GLYHGB ####[address] [address] Eosinophils 0.21 10*3/uL Normal 0.00-0.44 [facility] Comment on above: Performed By: #### C DP, CMPX, CRP, SED, GLYHGB ####[address] [address] Eosinophils/100 leukocytes 3 % Normal 1-4 [facility] Comment on above: Performed By: #### C DP, CMPX, CRP, SED, GLYHGB ####[address] [address] Erythrocyte distribution width Auto Ratio (RBC) 14.7 % High 11.8-14.4 [facility] Comment on above: Performed By: #### C DP, CMPX, CRP, SED, GLYHGB ####[address] [address] Erythrocyte morphology ANISOCYTOSIS PRESENT Normal [facility] Comment on above: Result Comment: [address] [address] Performed By: #### C DP, CMPX, CRP, SED, GLYHGB ####[address] [address] Erythrocytes (RBC) 3.45 10*6/uL Low 4.21-5.77 [facility] Comment on above: Performed By: #### C DP, CMPX, CRP, SED, GLYHGB ####[address] [address] Granulocytes/100 WBC (Bld) 0.22 k/uL Normal 0.00-0.30 [facility] Comment on above: Performed By: #### C DP, CMPX, CRP, SED, GLYHGB ####[address] [address] Hematocrit (HCT) 28.9 % Low 40.7-50.3 [facility] Comment on above: Performed By: #### C DP, CMPX, CRP, SED, GLYHGB ####[address] [address] Hemoglobin mass conc (Bld) 8.9 g/dL Low 13.0-17.0 [facility] Comment on above: Performed By: #### C DP, CMPX, CRP, SED, GLYHGB ####[address] [address] Immature granulocytes #/vol (Bld) 3 % High 0 [facility] Comment on above: Performed By: #### C DP, CMPX, CRP, SED, GLYHGB ####[address] [address] Lymphocytes 1.83 10*3/uL Normal 1.10-3.70 [facility] Comment on above: Performed By: #### C DP, CMPX, CRP, SED, GLYHGB ####[address] [address] Lymphocytes/100 leukocytes 26 % Normal 24-43 [facility] Comment on above: Performed By: #### C DP, CMPX, CRP, SED, GLYHGB ####[address] [address] MCH 25.8 pg Normal 25.2-33.5 [facility] Comment on above: Performed By: #### C DP, CMPX, CRP, SED, GLYHGB ####[address] [place] [address] MCHC mass conc (RBC) 30.8 g/dL Normal 28.4-34.8 [facility] [facility] Comment on above: Performed By: #### C DP, CMPX, CRP, SED, GLYHGB ####[address] [address] MCV 83.8 fL Normal 82.6-102.9 [facility] Comment on above: Performed By: #### C DP, CMPX, CRP, SED, GLYHGB ####[address] [address] Monocytes 0.58 10*3/uL Normal 0.10-1.20 [facility] Comment on above: Performed By: #### C DP, CMPX, CRP, SED, GLYHGB ####[address] [address] Monocytes/100 leukocytes 8 % Normal 3-12 [facility] Comment on above: Performed By: #### C DP, CMPX, CRP, SED, GLYHGB ####[address] [address] Neutrophil (Seg) 60 % Normal 36-65 [facility] Comment on above: Performed By: #### C DP, CMPX, CRP, SED, GLYHGB ####[address] [address] Platelet mean volume (PMV) 9.3 fL Normal 8.1-13.5 [facility] Comment on above: Performed By: #### C DP, CMPX, CRP, SED, GLYHGB ####[address] [address] Platelets 231 10*3/uL Normal 138-453 [facility] Comment on above: Performed By: #### C DP, CMPX, CRP, SED, GLYHGB ####[facility] [address] [place] [address] WBC (Leukocytes) 7.2 10*3/uL Normal 3.5-11.3 [facility] Comment on above: Performed By: #### C DP, CMPX, CRP, SED, GLYHGB ####[address] [address] Auto Diff Performed NOT REPORTED Normal [facility] Comment on above: Performed By: #### C DP, CMPX, CRP, SED, GLYHGB ####[address] [address] Platelets NOT REPORTED Normal [facility] Comment on above: Performed By: #### C DP, CMPX, CRP, SED, GLYHGB ####[address] [address] WBC Morphology NOT REPORTED Normal [facility] Comment on above: Performed By: #### C DP, CMPX, CRP, SED, GLYHGB ####[address] [address] Cult,Aerobe/Anaerobeon 04-12 Neutrophils Specimen Description .TISSUE RIGHT [...] NOT REPORTEDTrimethoprim/Sulfa <=10 SUSCEPTIBLEVancomycin 1 SUSCEPTIBLE Normal [facility] Comment on above: Performed By: #### A ANC ####[address] [address] Plan of Careon 04-12-2017 HIM IP Note OR Vice Admiral Normal [facility] HIM IP Note OR Vice Admiral Normal [facility] HIM IP Note OR Vice Admiral Normal [facility] HIM IP Note OR Vice Admiral Normal [facility] HIM IP Note OR Vice Admiral Normal [facility] Progress Noteon 04-12-2017 HIM IP Note OR Vice Admiral Normal [facility] HIM IP Note OR Vice Admiral Normal [facility] HIM IP Note OR Vice Admiral Normal [facility] HIM IP Note OR Vice Admiral Normal [facility] HIM IP Note OR Vice Admiral Normal [facility] HIM IP Note OR Vice Admiral Normal [facility] Basic Metabolic Profon 04-11 (cont.) Normal [facility] Comment on above: Result Comment: Aver age GFR for 50-59 years old: 93 mL/min/1.73sq mChronic Kidney Disease: <60 mL/min/1.73sq mKidney failure: <15 mL/min/1.73sq meGFR calculated using average adult body mass. Additional eGFR calculator available at:http://www.[employer]/multiple_crcl_2012.htm[facility] [address] [place] [address] Performed By: #### C DP, CMPX, CRP, SED, GLYHGB ####[address] [place], [place] 0[address] Anion gap 14 mmol/L Normal 9-17 [facility] Comment on above: Performed By: #### C DP, CMPX, CRP, SED, GLYHGB ####[facility] [address] [place] [address] Calcium 8.2 mg/dL Low 8.6-10.4 [facility] Comment on above: Performed By: #### C DP, CMPX, CRP, SED, GLYHGB ####[address] [address] Chloride 101 mmol/L Normal 98-107 [facility] Comment on above: Performed By: #### C DP, CMPX, CRP, SED, GLYHGB ####[address] [address] CO2 21 mmol/L Normal 20-31 [facility] Comment on above: Performed By: #### C DP, CMPX, CRP, SED, GLYHGB ####[address] [address] Creatinine 1.16 mg/dL Normal 0.70-1.20 [facility] Comment on above: Performed By: #### C DP, CMPX, CRP, SED, GLYHGB ####[address] [address] eGFR (non-black) mL/min/{1.73_m2} Normal >60 [facility] Comment on above: Performed By: #### C DP, CMPX, CRP, SED, GLYHGB ####[address] [address] Glucose mass conc 153 mg/dL High 70-99 [facility] Comment on above: Performed By: #### C DP, CMPX, CRP, SED, GLYHGB ####[address] [address] Potassium molar conc 4.0 mmol/L Normal 3.7-5.3 [facility] Comment on above: Performed By: #### C DP, CMPX, CRP, SED, GLYHGB ####[address] [place] [address] Sodium 136 mmol/L Normal 135-144 [facility] Comment on above: Performed By: #### C DP, CMPX, CRP, SED, GLYHGB ####[address] [address] Urea nitrogen 18 mg/dL Normal - [facility] Comment on above: Performed By: #### C DP, CMPX, CRP, SED, GLYHGB ####[address] [address] BUN/CRE Ratio NOT REPORTED Normal - [facility] Comment on above: Performed By: #### C DP, CMPX, CRP, SED, GLYHGB ####[address] [address] Staging: NOT REPORTED Normal [facility] Comment on above: Performed By: #### C DP, CMPX, CRP, SED, GLYHGB ####[address] [address] C-Reactive Proteinon 018 C reactive protein (CRP) 55.5 mg/L High 0.0-5.0 [facility] Comment on above: Result Comment: [address] [address] Performed By: #### C DP, CMPX, CRP, SED, GLYHGB ####[facility] [address] [place] [address] CBC with Diffon 04-11-2017 Abs. Basophil <0.03 Normal 0.00-0.20 [facility] Comment on above: Performed By: #### C DP, CMPX, CRP, SED, GLYHGB ####[address] [address] Abs.Neutrophil (Seg) 5.04 k/uL Normal 1.50-8.10 [facility] Comment on above: Performed By: #### C DP, CMPX, CRP, SED, GLYHGB ####[address] [address] Basophils/100 WBC Auto (Bld) 0 % Normal 0-2 [facility] Comment on above: Performed By: #### C DP, CMPX, CRP, SED, GLYHGB ####[address] [address] Eosinophils 0.24 10*3/uL Normal 0.00-0.44 [facility] Comment on above: Performed By: #### C DP, CMPX, CRP, SED, GLYHGB ####[address] [address] Eosinophils/100 leukocytes 3 % Normal 1-4 [facility] Comment on above: Performed By: #### C DP, CMPX, CRP, SED, GLYHGB ####[address] [address] Erythrocyte distribution width Auto Ratio (RBC) 14.8 % High 11.8-14.4 [facility] Comment on above: Performed By: #### C DP, CMPX, CRP, SED, GLYHGB ####[address] [address] Erythrocyte morphology ANISOCYTOSIS PRESENT Normal [facility] Comment on above: Result Comment: [address] [place] [address] Performed By: #### C DP, CMPX, CRP, SED, GLYHGB ####[address] [address] Erythrocytes (RBC) 3.36 10*6/uL Low 4.21-5.77 [facility] Comment on above: Performed By: #### C DP, CMPX, CRP, SED, GLYHGB ####[address] [address] Granulocytes/100 WBC (Bld) 0.09 k/uL Normal 0.00-0.30 [facility] Comment on above: Performed By: #### C DP, CMPX, CRP, SED, GLYHGB ####[address] [address] Hematocrit (HCT) 28.8 % Low 40.7-50.3 [facility] Comment on above: Performed By: #### C DP, CMPX, CRP, SED, GLYHGB ####[address] [address] Hemoglobin mass conc (Bld) 8.8 g/dL Low 13.0-17.0 [facility] Comment on above: Performed By: #### C DP, CMPX, CRP, SED, GLYHGB ####[address] [address] Immature granulocytes #/vol (Bld) 1 % High 0 [facility] Comment on above: Performed By: #### C DP, CMPX, CRP, SED, GLYHGB ####[address] [address] Lymphocytes 1.73 10*3/uL Normal 1.10-3.70 [facility] Comment on above: Performed By: #### C DP, CMPX, CRP, SED, GLYHGB ####[address] [address] Lymphocytes/100 leukocytes 23 % Low 24-43 [facility] Comment on above: Performed By: #### C DP, CMPX, CRP, SED, GLYHGB ####[address] [address] MCH 26.2 pg Normal 25.2-33.5 [facility] Comment on above: Performed By: #### C DP, CMPX, CRP, SED, GLYHGB ####[address] [address] MCHC mass conc (RBC) 30.6 g/dL Normal 28.4-34.8 [facility] Comment on above: Performed By: #### C DP, CMPX, CRP, SED, GLYHGB ####[address] [address] MCV 85.7 fL Normal 82.6-102.9 [facility] Comment on above: Performed By: #### C DP, CMPX, CRP, SED, GLYHGB ####[address] [address] Monocytes 0.56 10*3/uL Normal 0.10-1.20 [facility] Comment on above: Performed By: #### C DP, CMPX, CRP, SED, GLYHGB ####[address] [address] Monocytes/100 leukocytes 7 % Normal 3-12 [facility] Comment on above: Performed By: #### C DP, CMPX, CRP, SED, GLYHGB ####[address] [address] Neutrophil (Seg) 66 % High 36-65 [facility] Comment on above: Performed By: #### C DP, CMPX, CRP, SED, GLYHGB ####[address] [address] Platelet mean volume (PMV) 9.9 fL Normal 8.1-13.5 [facility] Comment on above: Performed By: #### C DP, CMPX, CRP, SED, GLYHGB ####[address] [address] Platelets 264 10*3/uL Normal 138-453 [facility] Comment on above: Performed By: #### C DP, CMPX, CRP, SED, GLYHGB ####[address] [address] WBC (Leukocytes) 7.7 10*3/uL Normal 3.5-11.3 [facility] Comment on above: Performed By: #### C DP, CMPX, CRP, SED, GLYHGB ####[facility] [address] [place] [address] Auto Diff Performed NOT REPORTED Normal [facility] Comment on above: Performed By: #### C DP, CMPX, CRP, SED, GLYHGB ####[address] [address] Platelets NOT REPORTED Normal [facility] Comment on above: Performed By: #### C DP, CMPX, CRP, SED, GLYHGB ####[address] [address] WBC Morphology NOT REPORTED Normal [facility] Comment on above: Performed By: #### C DP, CMPX, CRP, SED, GLYHGB ####[address] [address] Hemoglobin A1Con 04-11-2017 Glucose mass conc 315 mg/dL Normal [facility] Comment on above: Result Comment: The ADA and AACC recommend providing the estimated average glucose result to permit better patient understanding of their HBA1c result.[address] [address] Performed By: #### C DP, CMPX, CRP, SED, GLYHGB ####[address] [address] Hemoglobin A1c/Hemoglobin.tot al mass fraction (Bld) 12.6 % High 4.0-6.0 [facility] Comment on above: Performed By: #### C DP, CMPX, CRP, SED, GLYHGB ####[address] [place], [place] 3386[address] Plan of Careon 04-11-2017 HIM IP Note OR Vice Admiral Normal [facility] HIM IP Note OR Vice Admiral Normal [facility] HIM IP Note OR Vice Admiral Normal [facility] HIM IP Note OR Vice Admiral Normal [facility] Progress Noteon 04-11-2017 HIM IP Note OR Vice Admiral Normal [facility] HIM IP Note OR Vice Admiral Normal [facility] HIM IP Note OR Vice Admiral Normal [facility] HIM IP Note OR Vice Admiral Normal [facility] Consulton 04-10-2017 HIM IP Note OR Vice Admiral Normal [facility] Cult,Urine,Cathon 04-10-2017 Cult,Urine,Cath Specimen Description .CATHETERIZED URINE Special Requests NOT REPORTED Culture PRESUMPTIVE ID: LEO ALBICANS >[id number] CFU/ML Report Status FINAL 04/10/2017 Normal [facility] Comment on above: Performed By: #### C DP, CMPX, CRP, SED, GLYHGB ####[place] Influenza A + B, PCRon 04-10 Influenza A + B, PCR Specimen Description .NASOPHARYNGEAL SWABSpecial Requests NOT REPORTEDDirect Exam NEGATIVE: Influenza A and B RNA not detected by nucleic acid amplification. The results obtained should be interpreted in conjunction with clinical findings and other laboratory markers. The performance characterisitics of this molecular test were validated by the molecular microbiology department of [facility] [employer]. Report Status FINAL 04/10/2017 [facility] Comment on above: Performed By: #### C DP, CMPX, CRP, SED, GLYHGB ####[address] [place], [place] 9004[address] OPERATIVE REPORTon 8 OPERATIVE REPORT [address] [address] OPERATIVE REPORTPATIENT NAME: GANGA STINSON : 1960MED REC NO: [id number] ROOM: [id number] NO: [id number] ADMIT DATE: 04/09/2017PROVIDER: William Foster-JudgeDATE OF PROCEDURE: 04/10/2016SURGEON: William Foster-Ui Ux Developer, DPMASSISTANT: Benito Chacon DPM, PGY-1PREOPERATIVE DIAGNOSES:1. Deep [...] for recovery. The patient has a primary surgical nurse practitioner, Dr. 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 The department of Infectious Disease,Internal Medicine, and specialty medicine services will provide care duringthe inpatient admission. He will return to the care of Dr. Min [facility], [place], upon discharge.INDICATIONS FOR OPERATION: This is a [...] He would follow up with his usual surgical nurse practitioner on anoutpatient basis. The departments of Internal Medicine and InfectiousDisease will guide our care in the interim. Cultures should be availablewith sensitivities in approximately 72 hours and consider dischargeplanning then.WILLIAM FOSTER-JUDGED: 04/10/2017 15:31:53 MS/V_SSROR_IJob#: [id number] Doc#: [id number]: Yakov Haleycarly [facility] Department of Infectious Disease Internal Medicine Normal [facility] Plan of Careon 04-10-2017 HIM IP Note OR Vice Admiral Normal [facility] HIM IP Note OR Vice Admiral Normal [facility] Progress Noteon 04-10-2017 HIM IP Note OR Vice Admiral Normal [facility] HIM IP Note OR Vice Admiral Normal [facility] XR ANKLE RIGHT STANDARDon XR ANKLE RIGHT [...] Bakerigned by:Roberto Carlos Cavazos MD04/09/17inal result Normal [facility] C-Reactive Proteinon 018 C reactive protein (CRP) 114.3 mg/L High 0.0-5.0 [facility] Comment on above: Result Comment: [address] [place] [address] Performed By: #### C DP, CMPX, CRP, SED, GLYHGB ####[facility] [address] [place] [address] CBC with Diffon 04-09-2017 Abs. Basophil <0.03 Normal 0.00-0.20 [facility] Comment on above: Performed By: #### C DP, CMPX, CRP, SED, GLYHGB ####[facility] [address] [place] [address] Abs.Neutrophil (Seg) 5.95 k/uL Normal 1.50-8.10 [facility] Comment on above: Performed By: #### C DP, CMPX, CRP, SED, GLYHGB ####[address] [address] Basophils/100 WBC Auto (Bld) 0 % Normal 0-2 [facility] Comment on above: Performed By: #### C DP, CMPX, CRP, SED, GLYHGB ####[address] [address] Eosinophils 0.11 10*3/uL Normal 0.00-0.44 [facility] Comment on above: Performed By: #### C DP, CMPX, CRP, SED, GLYHGB ####[address] [address] Eosinophils/100 leukocytes 1 % Normal 1-4 [facility] Comment on above: Performed By: #### C DP, CMPX, CRP, SED, GLYHGB ####[address] [address] Erythrocyte distribution width Auto Ratio (RBC) 15.0 % High 11.8-14.4 [facility] Comment on above: Performed By: #### C DP, CMPX, CRP, SED, GLYHGB ####[address] [address] Erythrocyte morphology ANISOCYTOSIS PRESENT Normal [facility] Comment on above: Result Comment: [address] [address] Performed By: #### C DP, CMPX, CRP, SED, GLYHGB ####[address] [address] Erythrocytes (RBC) 3.50 10*6/uL Low 4.21-5.77 [facility] Comment on above: Performed By: #### C DP, CMPX, CRP, SED, GLYHGB ####[address] [address] Granulocytes/100 WBC (Bld) 0.09 k/uL Normal 0.00-0.30 [facility] Comment on above: Performed By: #### C DP, CMPX, CRP, SED, GLYHGB ####[address] [address] Hematocrit (HCT) 29.9 % Low 40.7-50.3 [facility] Comment on above: Performed By: #### C DP, CMPX, CRP, SED, GLYHGB ####[address] [address] Hemoglobin mass conc (Bld) 9.0 g/dL Low 13.0-17.0 [facility] Comment on above: Performed By: #### C DP, CMPX, CRP, SED, GLYHGB ####[address] [address] Immature granulocytes #/vol (Bld) 1 % High 0 [facility] Comment on above: Performed By: #### C DP, CMPX, CRP, SED, GLYHGB ####[address] [address] Lymphocytes 1.60 10*3/uL Normal 1.10-3.70 [facility] Comment on above: Performed By: #### C DP, CMPX, CRP, SED, GLYHGB ####[address] [address] Lymphocytes/100 leukocytes 19 % Low 24-43 [facility] Comment on above: Performed By: #### C DP, CMPX, CRP, SED, GLYHGB ####[address] [address] MCH 25.7 pg Normal 25.2-33.5 [facility] Comment on above: Performed By: #### C DP, CMPX, CRP, SED, GLYHGB ####[address] [address] MCHC mass conc (RBC) 30.1 g/dL Normal 28.4-34.8 [facility] Comment on above: Performed By: #### C DP, CMPX, CRP, SED, GLYHGB ####[address] [address] MCV 85.4 fL Normal 82.6-102.9 [facility] Comment on above: Performed By: #### C DP, CMPX, CRP, SED, GLYHGB ####[address] [address] Monocytes 0.53 10*3/uL Normal 0.10-1.20 [facility] Comment on above: Performed By: #### C DP, CMPX, CRP, SED, GLYHGB ####[address] [address] Monocytes/100 leukocytes 6 % Normal 3-12 [facility] Comment on above: Performed By: #### C DP, CMPX, CRP, SED, GLYHGB ####[address] [address] Neutrophil (Seg) 73 % High 36-65 [facility] Comment on above: Performed By: #### C DP, CMPX, CRP, SED, GLYHGB ####[address] [address] Platelet mean volume (PMV) 9.6 fL Normal 8.1-13.5 [facility] Comment on above: Performed By: #### C DP, CMPX, CRP, SED, GLYHGB ####[address] [place] [address] Platelets 224 10*3/uL Normal 138-453 [facility] Comment on above: Performed By: #### C DP, CMPX, CRP, SED, GLYHGB ####[address] [address] WBC (Leukocytes) 8.3 10*3/uL Normal 3.5-11.3 [facility] Comment on above: Performed By: #### C DP, CMPX, CRP, SED, GLYHGB ####[address] [address] Auto Diff Performed NOT REPORTED Normal [facility] Comment on above: Performed By: #### C DP, CMPX, CRP, SED, GLYHGB ####[address] [address] Platelets NOT REPORTED Normal [facility] Comment on above: Performed By: #### C DP, CMPX, CRP, SED, GLYHGB ####[address] [address] WBC Morphology NOT REPORTED Normal [facility] Comment on above: Performed By: #### C DP, CMPX, CRP, SED, GLYHGB ####[address] [address] Comp Metabolic Pr/rfx MGon 0 - (cont.) Normal [facility] Comment on above: Result Comment: Aver age GFR for 50-59 years old: 93 mL/min/1.73sq mChronic Kidney Disease: <60 mL/min/1.73sq mKidney failure: <15 mL/min/1.73sq meGFR calculated using average adult body mass. Additional eGFR calculator available at:http://www.[employer]/multiple_crcl_2012.htm[address] [address] Performed By: #### C DP, CMPX, CRP, SED, GLYHGB ####[facility] [address] [place] [address] Alanine aminotransferase (ALT) 9 U/L Normal 5-41 [facility] Comment on above: Performed By: #### C DP, CMPX, CRP, SED, GLYHGB ####[address] [place] [address] Albumin 2.8 g/dL Low 3.5-5.2 [facility] Comment on above: Performed By: #### C DP, CMPX, CRP, SED, GLYHGB ####[address] [address] Albumin/Globulin Ratio 0.7 {ratio} Low 1.0-2.5 [facility] Comment on above: Performed By: #### C DP, CMPX, CRP, SED, GLYHGB ####[address] [address] Alkaline Phos 57 U/L Normal 40-129 [facility] Comment on above: Performed By: #### C DP, CMPX, CRP, SED, GLYHGB ####[address] [place] [address] Anion gap 13 mmol/L Normal 9-17 [facility] Comment on above: Performed By: #### C DP, CMPX, CRP, SED, GLYHGB ####[facility] [address] [place] [address] Aspartate aminotransferase (AST) 9 U/L Normal <40 [facility] Comment on above: Performed By: #### C DP, CMPX, CRP, SED, GLYHGB ####[address] [place] [address] Bilirubin Ql (U) 0.26 mg/dL Low 0.3-1.2 [facility] Comment on above: Performed By: #### C DP, CMPX, CRP, SED, GLYHGB ####[address] [place] [address] Calcium 8.4 mg/dL Low 8.6-10.4 [facility] Comment on above: Performed By: #### C DP, CMPX, CRP, SED, GLYHGB ####[address] [address] Chloride 99 mmol/L Normal 98-107 [facility] Comment on above: Performed By: #### C DP, CMPX, CRP, SED, GLYHGB ####[address] [address] CO2 21 mmol/L Normal 20-31 [facility] Comment on above: Performed By: #### C DP, CMPX, CRP, SED, GLYHGB ####[address] [address] Creatinine 1.13 mg/dL Normal 0.70-1.20 [facility] Comment on above: Performed By: #### C DP, CMPX, CRP, SED, GLYHGB ####[address] [place] [address] eGFR (non-black) mL/min/{1.73_m2} Normal >60 [facility] Comment on above: Performed By: #### C DP, CMPX, CRP, SED, GLYHGB ####[address] [address] Glucose mass conc 267 mg/dL High 70-99 [facility] Comment on above: Performed By: #### C DP, CMPX, CRP, SED, GLYHGB ####[facility] [address] [place] [address] Potassium molar conc 4.3 mmol/L Normal 3.7-5.3 [facility] Comment on above: Performed By: #### C DP, CMPX, CRP, SED, GLYHGB ####[facility] [address] [place] [address] Protein 7.0 g/dL Normal 6.4-8.3 [facility] Comment on above: Performed By: #### C DP, CMPX, CRP, SED, GLYHGB ####[facility] [address] [place] [address] Sodium 133 mmol/L Low 135-144 [facility] Comment on above: Performed By: #### C DP, CMPX, CRP, SED, GLYHGB ####[facility] [address] [place] [address] Urea nitrogen 22 mg/dL High -20 [facility] Comment on above: Performed By: #### C DP, CMPX, CRP, SED, GLYHGB ####[address] [place] [address] BUN/CRE Ratio NOT REPORTED Normal - [facility] Comment on above: Performed By: #### C DP, CMPX, CRP, SED, GLYHGB ####[address] [place] [address] Staging: NOT REPORTED Normal [facility] Comment on above: Performed By: #### C DP, CMPX, CRP, SED, GLYHGB ####[address] [address] Consulton 04-09-2017 HIM IP Note OR Vice Admiral Normal [facility] HIM IP Note OR Vice Admiral Normal [facility] HIM IP Note OR Vice Admiral Normal [facility] Flu A/B Ag Detectionon 04-09 Flu A/B Ag Detection Specimen Description .NASOPHARYNGEAL SWABSpecial Requests NOT REPORTEDDirect Exam PRESUMPTIVE NEGATIVE for Influenza A + B antigens. PCR testing to confirm this result is available upon request. Specimen will be saved in the laboratory for 7 days. Please call [phone] if PCR testing is indicated. Report Status FINAL 04/09/2017 Normal [facility] Comment on above: Performed By: #### C DP, CMPX, CRP, SED, GLYHGB ####[address] [place] [address] History and Physicalon 04-09 HIM IP Note OR Vice Admiral Normal [facility] MRI FOOT RIGHT W WO CONTRAST on [...] suspected despite a lack of definitive precontrast M3sqpwkfhr changes.Large ulcer overlying the lateral malleolus with underlying osteomyelitis.Interpreted by:SAMMI Tellezigned by:Jesusita Mock MD04/09/17inal result Normal [facility] Op Noteon 04-09-2017 HIM IP Note OR Vice Admiral Normal [facility] Plan of Careon 04-09-2017 HIM IP Note OR Vice Admiral Normal [facility] HIM IP Note OR Vice Admiral Normal [facility] Progress Noteon 04-09-2017 HIM IP Note OR Vice Admiral Normal [facility] HIM IP Note OR Vice Admiral Normal [facility] HIM IP Note OR Vice Admiral Normal [facility] RSV Ag Detectionon 8 RSV Ag Detection Specimen Description .NASOPHARYNGEAL SWABSpecial Requests NOT REPORTEDDirect Exam Presumptive negative for the presence of RSV antigen. PCR testing to confirm this result is available upon request. Specimen will be saved in the laboratory for 7 days. Please call [phone] if PCR testing is indicated. Report Status FINAL 04/09/2017 Normal [facility] Comment on above: Performed By: #### C DP, CMPX, CRP, SED, GLYHGB ####[employer] [place] [address] Sedimentation Rateon 018 Sedimentation Rate 80 mm High 0-10 [facility] Comment on above: Result Comment: [place] [facility] [place], [place] [id number] ([phone] Performed By: #### C DP, CMPX, CRP, SED, GLYHGB ####[facility] [address] [place] [address] XR FOOT RIGHT STANDARDon XR FOOT RIGHT [...] by:SAMMI Tellezigned by:Jesusita Mock MD04/09/17inal result Normal [facility] Vital Signs Date Time Vital Sign Value Performing Clinician Facility 05-06-2023 10:40-0500 Body height 177.8 cm Jonathan Moffett DPM Work Phone: [facility] 05-06-2023 10:40-0500 Body mass index (BMI) [Ratio] 35.87 kg/m2 Jonathan Betina DPM Work Phone: [facility] 05-06-2023 10:40-0500 Body weight 113.4 kg Jonathan Betina DPM Work Phone: [facility] 05-06-2023 10:40-0500 Diastolic blood pressure 80 mm[Hg] Jonathan Moffett DPM Work Phone: [facility] 05-06-2023 10:40-0500 Heart rate 79 /min Jonathan Moffett DPM Work Phone: [facility] 05-06-2023 10:40-0500 Systolic blood pressure 133 mm[Hg] Jonathan Moffett DPM Work Phone: [facility] 11-09-2022 13:10-0400 Blood Pressure Location Parvin VILLA [facility] 11-09-2022 13:10-0400 Diastolic blood pressure 72 mm[Hg] Parvin VILLA [facility] 11-09-2022 13:10-0400 Heart rate 78 /min Parvin VILLA [facility] 11-09-2022 13:10-0400 Systolic blood pressure 148 mm[Hg] Parvin VILLA [facility] 06-26-2022 14:00-0400 Body temperature 97.81 [degF] Eli Pimentel MD Work Phone: [facility] [employer] 06-26-2022 14:00-0400 Diastolic blood pressure 62 mm[Hg] Eli Pimentel MD Work Phone: [facility] [employer] [facility] 06-26-2022 14:00-0400 Heart rate 70 /min Eli Pimentel MD Work Phone: [facility] [employer] 06-26-2022 14:00-0400 Respiratory rate 18 /min Eli Pimentel MD Work Phone: [facility] [employer] 06-26-2022 14:00-0400 SaO2% (BldA) [Mass fraction] 95 % Eli Pimentel MD Work Phone: [facility] [employer] 06-26-2022 14:00-0400 Systolic blood pressure 144 mm[Hg] Eli Pimentel MD Work Phone: [facility] [employer] 06-26-2022 05:30-0400 Body mass index (BMI) [Ratio] 34.28 kg/m2 Eli Pimentel MD Work Phone: [facility] [employer] 06-26-2022 05:30-0400 Body weight 111.49 kg Eli Pimentel MD Work Phone: [facility] [employer] 06-25-2022 04:54-0400 Body height 180.3 cm Eli Pimentel MD Work Phone: [facility] [employer] 06-02-2022 12:14-0500 Body height 172.72 cm MD Fidel Abbott Work Phone: [facility] 06-02-2022 12:14-0500 Body mass index (BMI) [Ratio] 41 kg/m2 MD Fidel Abbott Work Phone: [facility] 06-02-2022 12:14-0500 Body weight 122.46 kg MD Fidel Abbott Work Phone: [facility] 06-02-2022 09:52-0500 Body temperature 97 [degF] MD Fidel Abbott Work Phone: [facility] 06-02-2022 09:52-0500 Diastolic blood pressure 73 mm[Hg] MD Fidel Abbott Work Phone: [facility] 06-02-2022 09:52-0500 Heart rate 76 /min MD Fidel Abbott Work Phone: [facility] 06-02-2022 09:52-0500 Systolic blood pressure 155 mm[Hg] MD Fidel Abbott Work Phone: [facility] 03-03-2022 12:06-0500 Body height 180.34 cm MD Fidel Abbott Work Phone: [facility] 03-03-2022 12:06-0500 Body mass index (BMI) [Ratio] 34.8 kg/m2 MD Fidel Abbott Work Phone: [facility] 03-03-2022 12:06-0500 Body weight 113.39 kg MD Fidel Abbott Work Phone: [facility] 03-03-2022 11:37-0500 Body temperature 97.7 [degF] MD Fidel Abbott Work Phone: [facility] 03-03-2022 11:37-0500 Diastolic blood pressure 56 mm[Hg] MD Fidel Abbott Work Phone: [facility] 03-03-2022 11:37-0500 Heart rate 68 /min MD Fidel Abbott Work Phone: [facility] 03-03-2022 11:37-0500 Respiratory rate 18 /min MD Fidel Abbott Work Phone: [facility] 03-03-2022 11:37-0500 Systolic blood pressure 122 mm[Hg] MD Fidel Abbott Work Phone: [facility] Encounters Encounter Date Encounter Type Care Provider [...] underlying condition with diabetic polyneuropathy, unspecified whether assisted insulin use (CMS/HCC); Acute complete paraplegia (CMS/HCC); Acute osteomyelitis of left fibula (CMS/HCC); Foot ulcer, right, with fat layer exposed (CMS/HCC); Venous insufficiency Start: 05-04-2023 ambulatory Cathy Brar Facility: [facility] Start: 04-29-2023 End: 04-29-2023 ambulatory JONATHAN A [...] Start: 02-23-2023 End: 02-23-2023 ambulatory Cathy Fregosogas Facility:[facility] Start: 02-06-2023 End: 02-13-2023 Evaluation and management of inpatient Fidel Abbott Facility:[facility] Start: 01-19-2023 End: 01-20-2023 ambulatory Parvinfior VILLA Facility: [facility] Start: 01-11-2023 End: 01-12-2023 ambulatory Parvin VILLA Facility:CD:[id number] Start: 11-09-2022 End: 11-10-2022 ambulatory Parvin VILLA Facility:[facility] Start: 11-09-2022 End: 11-09-2022 Patient encounter procedure Parvin VILLA [facility] Start: 10-09-2022 ambulatory Parvin VILLA [facility] Start: 10-07-2022 End: 10-09-2022 ambulatory Parvin VILLA Facility:CD:[id number] Start: 09-25-2022 End: 09-26-2022 ambulatory FIDEL ABBOTT [facility] Start: 09-18-2022 End: 09-21-2022 ambulatory ASHLEE ERWIN [facility] Start: 09-18-2022 End: 09-20-2022 Subsequent hospital visit by physician Francisca Ultrasound Room 2 At [facility] Ultrasound Comment on above: Cauda equina syndrom e (HCC); Neurogenic bladder; Urinary retention; Urinary incontinence without sensory awareness Start: 2022 End: 2022 ambulatory ANGELES NAGY [facility] Start: 07-02-2022 End: 07-03-2022 [facility] Start: 07-02-2022 End: 07-02-2022 Subsequent hospital visit by physician Fidel Abbott MD Work Phone: [facility] Laboratory Comment on above: Acute kidney injury (HCC); Iron deficiency anemia, unspecified iron deficiency anemia type Start: 06-22-2022 End: 06-26-2022 Evaluation and management of inpatient MATIAS DOSS [facility] Start: 06-22-2022 End: 06-26-2022 Evaluation and management of inpatient Eli Pimentel MD [facility] Comment on above: Acute kidney injury (HCC) (Primary Dx); Hyperkalemia; Iron deficiency anemia, unspecified iron deficiency anemia type Start: 06-22-2022 End: 06-22-2022 ambulatory ANGELES NAGY [facility] Start: 06-22-2022 End: 06-22-2022 Subsequent hospital visit by physician Fidel Abbott MD Work Phone: [facility] EKG Comment on above: Neurogenic bladder Start: 06-02-2022 End: 06-03-2022 ambulatory Cathy Brar Facility:[facility] Start: 06-02-2022 End: 06-02-2022 ambulatory MD Fidel Abbott Work Phone: [facility] Work Phone: Start: 06-02-2022 End: 06-02-2022 Discharged Recurring MD Fidel Abbott Work Phone: [facility] Work Phone: Start: 03-14-2022 End: 03-15-[address] CATHY BRAR Facility:[facility] Start: 03-03-2022 End: 03-03-2022 ambulatory MD Fidel Abbott Work Phone: [facility] Work Phone: Start: 03-03-2022 End: 03-03-2022 Discharged Recurring MD Fidel Abbott Work Phone: [facility] Work Phone: Start: 02-26-2022 End: 02-27-[address] CATHY BRAR Facility:[facility] Start: 05-30-2021 End: 05-31-[address] FIDEL ABBOTT Facility:[facility] Start: 04-09-2017 End: 04-13-2017 Evaluation and management of inpatient MICHAELA Zhu [facility] Procedures Date Procedure Procedure Detail Performing Clinician Start: 02-10-2023 Antibody screen Cathy Brar Comment on above: Order Comment: Transfuse now? Y Number o f units to transfuse now? 1 Result Comment: PERF ORMED BY: [facility] [address] [place] [address] PATHOLOGIST DRUG ABUSE PROGRAM COORDINATOR FARRAH PAUL M.D. Start: 10-08-2022 Cystourethroscopy with dilation of urethral stricture Parvin ALLEN Start: 09-18-2022 Us retroperitoneal real time w/image complete Ashlee Erwin HEEL ROOM SUPERVISOR - [employer] Work Phone: Start: 2022 Optical urethrotomy Parvin VILLA Start: 07-02-2022 Basic metabolic panel calcium total Shelly Mondragon HEEL ROOM SUPERVISOR - [employer] Work Phone: Start: 06-26-2022 End: 06-26-2022 COLONOSCOPY [...] actv qual feces 1 deter Shelly Mondragon HEEL ROOM SUPERVISOR - [employer] Work Phone: Start: 06-25-2022 Cul bact xcpt [...] of packed red blood cells Shelly Mondragon HEEL ROOM SUPERVISOR - [facility] Work Phone: Start: 06-24-2022 Echo tthrc r-t 2d w/wom-mode compl spec&colr d Shelly Mondragon HEEL ROOM SUPERVISOR - [facility] Work Phone: Start: 06-24-2022 Blood typing serologic abo Shelly Mondragon HEEL ROOM SUPERVISOR - [facility] Work Phone: Start: 06-24-2022 GLUCOSE, WHOLE BLOOD Matias Doss MD Work Phone: Start: 06-24-2022 End: 06-24-2022 Prothrombin time Shelly Mondragon HEEL ROOM SUPERVISOR - [facility] Work Phone: Start: 06-24-2022 VITAMIN B12 & FOLATE Shelly Mondragon HEEL ROOM SUPERVISOR - [employer] Work Phone: Start: 06-24-2022 End: 06-25-2022 Rhythm [...] ankle complete minimum 3 views Shelly Mondragon HEEL ROOM SUPERVISOR - [employer] Work Phone: Start: 06-23-2022 Lipid panel Zoila [...] MICHAELA [facility] Start: 04-11-2017 POC GLUCOSE FINGERSTICK MICHEALA ONTIVEROS Start: 04-11-2017 POCT GLUCOSE MICHAELA ONTIVEROS [...] 06-26-2032 Screening for malignant neoplasm of colon [facility] [employer] Start: 10-18-2023 End: 10-18-2023 Patient encounter procedure 10/18/2023 10:00 AM EDT Office Visit [facility] [address] [place] [phone] Fidel Abbott MD [address] [place] [phone] [facility] Start: 09-19-2023 GFR test (Diabetes, CKD 3-4, OR last GFR 15-59) GFR test (Diabetes, CKD 3-4, OR last GFR 15-59) [facility] Start: 07-08-2023 Hemoglobin A1c measurement A1C test (Diabetic or Prediabetic) [facility] Start: 07-03-2023 GFR test (Diabetes, CKD 3-4, OR last GFR 15-59) GFR test (Diabetes, CKD 3-4, OR last GFR 15-59) [facility] Start: 06-27-2023 Screening for malignant neoplasm of colon [facility] [employer] Start: 06-26-2023 GFR test (Diabetes, CKD 3-4, OR last GFR 15-59) GFR test (Diabetes, CKD 3-4, OR last GFR 15-59) [facility] [employer] Start: 06-26-2023 Screening for malignant neoplasm of colon [facility] [employer] Start: 06-24-2023 Lipid panel Lipids [facility] Start: 06-23-2023 GFR test (Diabetes, CKD 3-4, OR last GFR 15-59) GFR test (Diabetes, CKD 3-4, OR last GFR 15-59) [facility] Start: 05-20-2023 End: 05-20-2023 Patient encounter procedure 05/20/2023 3:10 PM EST Office Visit [facility] [address] [id number] Jonathan Moffett, DPM [address] [address] [facility] Start: 05-06-2023 End: 05-06-2023 Patient encounter procedure 05/06/2023 10:20 AM EST Office Visit [facility] [address] [facility] [address] [place] [phone] Jonathan Moffett, DPM [address] [address] [facility] Start: 10-27-2022 Influenza vaccination Flu vaccine (Season Ended) [facility] Start: 10-06-2022 Hemoglobin A1c measurement Diabetes: Hemoglobin A1C [facility] Start: 09-25-2022 End: 09-25-2022 Patient encounter procedure 09/25/2022 Office Visit [facility] UROLOGY [facility] Start: 07-08-2022 End: 07-08-2022 Patient encounter procedure 07/08/2022 [facility] Start: 2022 End: 2022 Admission to same day surgery center 2022 Surgery IP Unit Angeles Nagy MD [address], [address] [place] [address] CYSTOSCOPY TRANSURETHROTOMY- DVIU WITH POSS TRANSURETHRAL RESECTION OF BLADDER TUMOR [facility] OR Comment on above: CYSTOSCOPY TRANSURETHROTOMY- DVIU WITH P OSS TRANSURETHRAL RESECTION OF BLADDER TUMOR Start: 2022 End: 2022 Cystourethroscopy w/internal urethrotomy male CYSTOSCOPY TRANSURETHROTOMY Cauda equina syndrome (HCC) 2022 8:30 AM EDT [facility] Start: 2022 Subsequent hospital visit by physician 2022 Hospital Encounter IP Unit Angeles Nagy MD [address], [address] [place] [address] [facility] Start: 07-01-2022 End: 06-27-2023 Basic metabolic 2000 panel - Serum or Plasma Basic Metabolic Panel Lab Routine Acute kidney injury (HCC) Expected: 07/01/2022, Expires: 06/27/2023 [facility] [employer] Work Phone: Comment on above: Expected: 07/01/2022, Expires: 4 Start: 07-01-2022 End: 06-27-2023 CBC W Auto Differential panel - Blood CBC with Auto Differential Lab Routine Acute kidney injury (HCC) Iron deficiency anemia, unspecified iron deficiency anemia type Expected: 07/01/2022, Expires: 06/27/2023 [facility] Work Phone: Comment on above: Expected: 07/01/2022, Expires: 4 Start: 06-22-2022 Annual Wellness Visit (AWV) Annual Wellness Visit (AWV) [facility] Start: 10-27-2021 Influenza vaccination Flu vaccine (#1) [facility] [employer] Start: 04-09-2018 Diabetic foot examination Diabetic foot exam [facility] Start: 04-09-2018 Hemoglobin A1c measurement A1C test (Diabetic or Prediabetic) [facility] Start: 04-25-2016 Lipid panel Lipids [facility] [employer] Start: 04-24-2016 Urine screening for protein Diabetic Alb to Cr ratio (uACR) test [facility] [employer] Start: 07-08-2011 Shingles vaccine (1 of 2) Shingles vaccine (1 of 2) [facility] Submittable Start: 2006 Screening for malignant neoplasm of colon [facility] Start: 1980 DTaP/Tdap/Td vaccine (1 - Tdap) DTaP/Tdap/Td vaccine (1 - Tdap) [facility] Submittable Start: 1980 Urine screening for protein Diabetes: Urine Protein Screening [facility] Start: 07-08-1979 Glaucoma screening Diabetic retinal exam [facility] Start: 07-08-1979 Hepatitis C screening Hepatitis C screen [facility] Submittable Start: 1976 HIV screening HIV screen [facility] Submittable Start: 1973 Depression Monitoring Depression Monitoring [facility] Submittable Start: 07-08-1971 Glaucoma screening Diabetes: Retinopathy Screening [facility] Start: 07-08-1967 Pneumococcal 0-64 years Vaccine (1 - PCV) Pneumococcal 0-64 years Vaccine (1 - PCV) [facility] Submittable Start: 01-06-1962 COVID-19 Vaccine (#1) COVID-19 Vaccine (#1) [facility] Submittable Start: 1961 Screening for malignant neoplasm of colon [facility] End: 06-27-2022 CBC W Auto Differential panel - Blood CBC auto differential Lab Routine Daily for 5 Days starting 06/23/2022 until 06/27/2022, 4 completed [facility] Phone: Comment on above: Daily for 5 Days starting 06/23/2022 unt il 06/27/2022, 4 completed Culture, Wound Aerob ic Only Culture, Wound Aerobic Only Microbiology [employer] Label Print 06/25/2022 12:20 PM EDT [facility] Phone: End: 06-25-2022 Hemoglobin and Hematocrit Hemoglobin and Hematocrit Lab Routine Post Transfusion Post Transfusion Post Transfustion until discontinued starting 06/24/2022, 1 completed [facility] Phone: Comment on above: Post Transfusion Post Transfusion Post T ransfustion until discontinued starting 06/24/2022, 1 completed Oxygen therapy [[facility] Data Set] Initiate Oxygen Therapy Protocol Respiratory Care Routine Daily until discontinued starting 06/22/2022 [facility] Phone: Comment on above: Daily until discontinued starting 2022 End: 06-24-2022 PREPARE RBC (CROSSMATCH), 1 Units PREPARE RBC (CROSSMATCH), 1 Units Blood Bank Routine Once for 1 Occurrences starting 06/24/2022 until 06/24/2022 [facility] Phone: Comment on above: Once for 1 Occurrences starting 06/25/19 until 06/24/2022 End: 06-25-2022 Surgical Pathology Surgical Pathology Lab Routine One Time for 1 Occurrences starting 06/25/2022 until 06/25/2022 [facility] Phone: Comment on above: One Time for 1 Occurrences starting 05/29 until 06/25/2022 Surgical Pathology Surgical Path ology Lab Routine Hyperkalemia Release Upon Ordering for 1 Occurrences starting 06/26/2022 [facility] Phone: Comment on above: Release Upon Ordering for 1 Occurrences starting 06/26/2022 End: 06-25-2022 SURGICAL PATHOLOGY REPORT SURGICAL PATHOLOGY REPORT Lab Routine Once for 1 Occurrences starting 06/25/2022 until 06/25/2022 [facility] Phone: Comment on above: Once for 1 Occurrences starting 06/26/19 until 06/25/2022 End: 06-26-2022 SURGICAL PATHOLOGY REPORT SURGICAL PATHOLOGY REPORT Lab Routine Once for 1 Occurrences starting 06/26/2022 until 06/26/2022 [facility] Phone: Comment on above: Once for 1 Occurrences starting 06/27/19 until 06/26/2022 Immunizations Immunization Date Immunization Notes Care Provider [facility] 04-10-2017 influenza virus vaccine, unspecified formulation Parvin ALLEN [facility] Comment on above: Result Comment: 2022: VIS DATE: 11/02/2014 04-10-2017 influenza, injectabl e, quadrivalent, preservative free Fidel Abbott MD Work Phone: [facility] 01-28-2016 Influenza Vaccine, unspecified formulation Fidel Abbott MD Work Phone: [facility] 01-01-2015 influenza virus vaccine, unspecified formulation Parvin VILLA [facility] 01-10-2014 influenza virus vaccine, unspecified formulation Parvin VILLA [facility] Payers Date Payer Category Payer Self-pay [id number] 2021 Unknown BCBS BCBS [id number] 2021-Present [phone] [address] [place] [address] [id number] 2015 Unknown [id number] 2006 Medicare MEDICARE MEDICAR E PART B [id number] 2006-Present [address] [address] [place] [address] Medicare [id number] 1961 Unknown [id number] 2.16.840.1.387061.3.579.2.593 1961 Unknown [id number] 2.16.840.1.496613.3.579.2.593 1961 Unknown [id number] 2.16.840.1.119929.3.579.2.593 1961 Unknown [id number] 2.16.840.1.745815.3.579.2.173 1961 Unknown [id number] 2.16.840.1.605516.3.579.2.173 1961 Unknown [id number] 2.16.840.1.610825.3.579.2.173 1961 Unknown [id number] 2.16.840.1.585750.3.579.2.173 1961 Unknown [id number] 2.16.840.1.019468.3.579.2.173 1961 Unknown [id number] 2.16.840.1.881291.3.579.2.173 1961 Unknown [id number] 2.16.840.1.480845.3.579.2.173 1961 Unknown [id number] 2.16.840.1.549170.3.579.2.173 1961 Unknown [id number] 2.16.840.1.069047.3.579.2.727 1961 Unknown [id number] 2.16.840.1.652342.3.579.2.727 1961 Unknown [id number] 2.16.840.1.730251.3.579.2.72 1961 Unknown [id number] 2.16.840.1.847895.3.579.2.727 1961 Unknown [id number] 2.16.840.1.975623.3.579.2.1258 1961 Unknown [id number] 2.16.840.1.440555.3.579.2.9 1961 Unknown [id number] 2.16.840.1.304413.3.579.2.1258 1961 Unknown [id number] 2.16.840.1.954249.3.579.2.125 1961 Unknown [id number] 2.16.840.1.869914.3.579.2.1258 1961 Unknown [id number] 2.16.840.1.506878.3.579.2.1259 1961 Unknown [id number] 2.16.840.1.759080.3.579.2.125 1961 Unknown [id number] 2.16.840.1.485581.3.579.2.1259 1961 Unknown [id number] 2.16.840.1.567292.3.579.2.1259 1959 Medicare [id number] 1959 Unknown [id number] 1959 Unknown [id number] Unknown [id number] 2.16.840.1.890873.3.579.2.531 Unknown [id number] 2.16.840.1.438344.3.579.2.531 Unknown [id number] 2.16.840.1.907433.3.579.2.531 Unknown [id number] 2.16.840.1.374926.3.579.2.531 Social History Date Type Detail Facility Start: 01-27-2022 End: 02-23-2023 Tobacco smoking status NHIS Never smoked tobacco (finding) [facility] Start: 1960 Sex Assigned At Male [facility] Start: 06-22-2022 End: 02-23-2023 Tobacco use and exposure Smokeless tobacco non-user [facility] Phone: Start: 06-22-2022 End: 07-14-2022 Alcohol intake Current non-drinker of alcohol (finding) [facility] Phone: Start: 1960 Sex Assigned At Not on file B ON [employer] Phone: Start: 06-12-2022 End: 06-22-2022 Exposure to SARS-CoV-2 (event) Not sure [facility] Start: 06-23-2022 History SDOH Alcohol Frequency 1 [facility] Phone: Start: 06-23-2022 History SDOH Alcohol Std Drinks 0 [facility] Phone: Tobacco smoking status Never [facility] Start: 04-29-2023 End: 05-06-2023 Sex Assigned At Male [facility] Start: 04-29-2023 End: 05-06-2023 Alcohol intake Lifetime non-drinker (finding) [facility] Start: 04-29-2023 End: 05-06-2023 History of Social function [facility] Medical Equipment Procedure Code Equipment Code Equipment Origin al Text Equipment Identifier Dates Graft Subst Resorbable Mini 5cc [id number] Start: 12-25-2016 Comment on above: Description: mercedez icin recostituted with 10ml normal saline ref # [id number] exp 07/27/2018 lot # [id number] Goals Date Patient Goal Desired Activity /State Functional Status Date Assessment Result Facility 11-09-2022 Functional Status N/A [facility] Clinical Notes 07-29-2021 to 05-13-2023 Telephone [...] 05/06 visit. Can you resend? Thank you! [facility] 05-13-2023 Miscellaneous Notes Patient called to inquire about the antibiotic that was supposed to be sent after his 05/06 visit. Can you resend? Thank you! documented in this encounter [facility] 05-06-2023 History of Presen t illness [...] unable to go to wound care at [facility] Patient also has Integra wound [...] or home health. Patient currently going at [facility] for decubitus ulcer Patient still awaits MRI approval as had to be resubmitted due to need for new x-ray on previous visit in awaits MRI at [facility] . Referral has been sent to [facility] wound center with attempt to follow-up for [...] region for possible osteomyelitis to fibula at [facility] ASSESSMENT 12 weeks s/p left 4th and 5th ray amputation with incision and drainage and partial closure with single lobe flap Type 2 diabetic with paraplegia 1. Ulcer of left ankle, with necrosis of bone (HCC) (CMS/HCC) 2. Diabetes mellitus due to underlying condition with diabetic polyneuropathy, unspecified whether assisted insulin use (CMS/HCC) 3. Acute complete paraplegia [...] oral antibiotics Patient to follow up with [facility] for decubitus ulcer and instructions given to contact [facility] for follow-up.. Skin flap area of ulceration [...] Jonathan Moffett DPM documented in this encounter [facility] 11-09-2022 Hospital Discharg e instructions Patient [...] Follow these instructions at home: Medicines Take [id number] and prescription medicines only as told by [...] provider. Document Revised: 12/04/2020 Document Reviewed: 12/04/2020 [employer] Patient Education 2022 DJZ. Follow Up Care 10/13/2022 11:18:02 With:ALLEN NAZARIO, Parvin Christie, URL Address: [facility] [address] , [place] [address]- [phone] When: Unknown Comments:sched cysto [facility] T[place] 06-26-2022 History of Presen t illness [...] Call light within reach. Physical Therapy Facility/Department: [facility] Daily Treatment Note NAME: Ganga [...] 24 Madelin Hopkins PTA Occupational Therapy Facility/Department: [facility] Daily Treatment Note NAME: Ganga [...] will continue to monitor. [facility] via cart with RN. Bedside [...] dressings changed per order. See flow sheet Parking Lot Spotter at bedside for wound dressing change- pt incontinent of bowels. See flow sheet for details. Pt incontinent of stool. Parking Lot Spotter at bedside for wound change dressing per order- see flow sheet for details. Patient at bedside for reassessment and vitals- see flow sheet for details. Pt remains alert and oriented c4-calm and cooperative. GoLYTELY at bedside and casualty underwriter encourages patient to consume fluid- pt validates understanding. Patient currently denying pain and discomfort. Denying any additional needs, call light placed within reach, bed in lowest position. Parking Lot Spotter encourages patient to call out for assistance. Will continue to monitor. Parking Lot Spotter at bedside- pt incontinent of stool- wound dressing changed per order. See flow sheet. Parking Lot Spotter at bedside to for wound dressing change per order. See MAR for details. Physical Therapy Facility/Department: [facility] Daily Treatment Note NAME: Ganga [...] never been a smoker. He saw a income tax investigator at [facility] 2 years ago in 2020. At [...] himself. He follows with wound clinic at [facility]. Mr. Stinson also denied any current or recent chest pain, abdominal pain, bleeding problems, problems with his medications or any other concerns at this time. Past Medical History: Diagnosis Date Abnormal EKG 06/23/2022 Acute kidney injury superimposed on CKD (HCC) 06/23/2022 Cauda equina syndrome ([facility]) 2004 Depression Hypertension MRSA (methicillin resistant staph aureus) culture positive 04/10/2017 right ankle Open wound of right ankle 12/30/2016 Paralysis of both lower limbs ([facility]) Paraplegia ([facility]) Type II or unspecified type diabetes mellitus without mention of complication, not stated as uncontrolled Unspecified sleep apnea CURRENT ALLERGIES: Vancomycin REVIEW OF SYSTEMS: 14 systems were reviewed. Pertinent positives and negatives as above, all else negative. Past Surgical History: Procedure Laterality Date APPENDECTOMY BACK SURGERY X2 OTHER SURGICAL HISTORY Right 04/10/2017 I&D rt foot/leg wounds RI I&D BELOW FASCIA FOOT 1 BURSAL SPACE Right 12/25/2016 FOOT DEBRIDEMENT INCISION AND DRAINAGE, 5TH DIGIT, PARTIAL AMB. PLACEMENT OF ANTIBOTIC BEADS performed by Gabriel Haile DPM at [facility] OR RI I&D BELOW FASCIA FOOT 1 BURSAL SPACE Right 04/10/2017 RIGHT ANKLE AND RIGHT HEEL DEBRIDEMENT INCISION AND DRAINAGE WITH CULTURES SENT performed by William Jimenez MD at [facility] OR RI OFFICE/OUTPT VISIT,PROCEDURE ONLY Right 06/14/2017 FOOT DEBRIDEMENT INCISION AND DRAINAGE-ANKLE INCLUDING BONE BIOPSY performed by Yakov Min DPM at [facility] OR TOE AMPUTATION Right 12/25/2016 right fifth toe amputation with I&D, ATB beads per Dr. Haile VENA CAVA FILTER PLACEMENT mesopotamia filter Social History: Social History Tobacco Use [...] Pressure injury of right ankle, stage 4 ([facility]) 06/24/2022 Open wound of right ankle 12/30/2016 Mixed hyperlipidemia 04/25/2015 Hyponatremia 04/25/2015 Diabetes mellitus ([facility]) 07/02/2011 Paraplegia ([facility]) 03/12/2011 MSSA (methicillin susceptible Staphylococcus aureus) infection 05/28/2017 Bacterial infection 02/17/2017 Enterococcus faecalis infection 12/28/2016 Skin ulcer of right heel with fat layer exposed ([facility]) 09/02/2016 Skin ulcer of right 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 ([facility]) 04/25/2015 Decubitus ulcer of coccygeal region 07/19/2013 Cauda equina syndrome ([facility]) 12/09/2011 Open wound of knee, leg (except thigh), and ankle, complicated 02/25/2011 Acute kidney injury superimposed on CKD ([facility]) 06/23/2022 Abnormal EKG 06/23/2022 Neurogenic bladder 06/23/2022 Hyperkalemia 06/22/2022 Osteomyelitis of ankle or foot, right, acute ([facility]) Decubitus ulcer of coccygeal region, stage 4 ([facility]) 04/09/2017 Cellulitis 04/08/2017 Morbid obesity due to excess calories ([facility]) 01/01/2017 Acute on chronic renal failure ([facility]) 12/30/2016 Osteomyelitis of right foot (HCC) Hypertension Depression PLAN: Pre-Op Clearance: Pre-Operative Risk assessment using 2014 ACC/AHA guidelines Emergent procedure No Active Cardiac Condition No (decompensated HF, Arrhythmia, FL <3 weeks, severe valve disease) Risk Level [...] with the plan. Sincerely, Zoila Villafuerte PA-C [facility] Linux Network Administrator [address] [place], [place] [id number] , I believe that the risk of [...] ankle 12/30/2016 Paralysis of both lower limbs ([facility]) Paraplegia ([facility]) Type II or unspecified type diabetes mellitus without mention of complication, not stated as uncontrolled Unspecified sleep apnea Past Surgical History: Procedure Laterality Date APPENDECTOMY BACK SURGERY X2 OTHER SURGICAL HISTORY Right 04/10/2017 I&D rt foot/leg wounds RI I&D BELOW FASCIA FOOT 1 BURSAL SPACE Right 12/25/2016 FOOT DEBRIDEMENT INCISION AND DRAINAGE, 5TH DIGIT, PARTIAL AMB. PLACEMENT OF ANTIBOTIC BEADS performed by Gabriel Haile DPM at [facility] OR RI I&D BELOW FASCIA FOOT 1 BURSAL SPACE Right 04/10/2017 RIGHT ANKLE AND RIGHT HEEL DEBRIDEMENT INCISION AND DRAINAGE WITH CULTURES SENT performed by William Jimenez MD at [facility] OR RI OFFICE/OUTPT VISIT,PROCEDURE ONLY Right 06/14/2017 FOOT DEBRIDEMENT INCISION AND DRAINAGE-ANKLE INCLUDING BONE BIOPSY performed by Yakov Min DPM at [facility] OR TOE AMPUTATION Right 12/25/2016 right fifth toe amputation with I&D, ATB beads per Dr. Haile VENA CAVA FILTER PLACEMENT mesopotamia filter Allergies Allergen Reactions Vancomycin States had kidney issues after taking Current Facility-Administered Medications: gentamicin (GARAMYCIN) 250 mg in sterile water for irrigation 250 mL irrigation, 250 mg, Irrigation, Once, Yakov Min DPM 0.9 % sodium chloride infusion, , IntraVENous, PRN, Shelly Mondragon, HEEL ROOM SUPERVISOR - MANNEQUIN SANDER AND FINISHER polyethylene glycol (GoLYTELY) solution 4,000 mL, 4,000 mL, Oral, Once, Shelly Mondragon, HEEL ROOM SUPERVISOR - MANNEQU[employer] SANDER AND FINISHER multivitamin 1 tablet, 1 tablet, Oral, Daily, [...] IVPB, 600 mg, IntraVENous, Q8H, Shelly Mondragon, HEEL ROOM SUPERVISOR - MANNEQUIN SANDER AND FINISHER, Stopped at 06/25/22 0922 sodium hypochlorite (DAKINS) [...] Matias Doss MD, 5,000 Units at 06/23/22 5533 PE: VSS, Afebrile, NAD, A&O x 3, Aloof Labs: as above RLE ; lateral ankle ; FT+ ulcerative wound , +PTB IMP: stage 4 ankle decubitus, appaarent bone involvement Stable for minor bedside procedure Tx: see procedure notes P: see orders / AVS Yakov Min DPM 06/25/2022 12:28 PM Occupational Therapy Facility/Department: [facility] Daily Treatment Note NAME: Ganga [...] labs-Hgb 7.6 today Nutrition status: morbid obesity Dispatcher Street Department consult initiated Hospital Prophylaxis: DVT: Heparin Stress Ulcer: na Disposition: Shared decision making: All test results, treatment options and disposition options were discussed with the patient today Social determinants of health that may impact management: none Code status: Full Code Disposition: Discharge plan is home [facility] Advanced Care Planning documentation: [x] I have [...] Mondragon APRN - DOLLY , MARIFER MCCABE[facility] 06/25/2022, 7:34 AM IVETT Newman Associated attestation - Matias Doss MD - 06/25/2022 7:34 PM EDT Images from the original note were not included. [address], [address] Attestation Patient: Ganga Stinson Date of Admission: 06/22/2022 4:21 PM Hospital Day # 3 Date of Evaluation: 06/25/2022 I personally evaluated and examined the patient [id number] in conjunction with the PA/HAND SOLE SEWER and agree with the management and dispostition of the patient. Please see the PA/HAND SOLE SEWER's note for full details. My kohli findings [...] Pressure injury of right ankle, stage 4 ([facility]) Cauda equina syndrome (HCC) Decubitus ulcer of coccygeal region Acute kidney injury superimposed on CKD (HCC) Abnormal EKG Acute kidney injury (HCC) Resolved Problems: * No resolved hospital problems. * PLAN: I agree with the plan as outlined in the HAND SOLE SEWER/PA's note Disposition: Discharge plan is pending Please note that this chart was generated using voice recognition Matrix[employer] dictation software. Although every effort was made to ensure the accuracy of this automated dust collector ore crushing, some errors in dust collector ore crushing may have occurred. Matias Doss MD 06/25/2022 7:32 PM Pt vitals and assessment completed, see flowsheet. Pt A&Ox4, breathing normal. Morning hemoglobin is 7.6. Pt denies pain or sob. Pt denies pain or any further needs at this time, call light within reach, will continue to monitor. Parking Lot Spotter at bedside at this time to perform [...] time. Call light within reach, care ongoing. Parking Lot Spotter at bedside at this time to perform initial shift assessment. Patient is lying in bed at this time. Vital signs taken and assessment completed at this time. Patient is alert and oriented and has no complaints of pain of pain at this time. Patient denies any further needs at this time. Call light within reach, care ongoing. Physical Therapy Facility/Department: [facility] Daily Treatment Note NAME: Ganga [...] never been a smoker. He saw a income tax investigator at [facility] 2 years ago in 2020. At [...] himself. He follows with wound clinic at [facility]. Mr. Stinson also denied any current or [...] Paralysis of both lower limbs (HCC) Paraplegia ([facility]) Type II or unspecified type diabetes mellitus without mention of complication, not stated as uncontrolled Unspecified sleep apnea CURRENT ALLERGIES: Vancomycin REVIEW OF SYSTEMS: 14 systems were reviewed. Pertinent positives and negatives as above, all else negative. Past Surgical History: Procedure Laterality Date APPENDECTOMY BACK SURGERY X2 OTHER SURGICAL HISTORY Right 04/10/2017 I&D rt foot/leg wounds RI I&D BELOW FASCIA FOOT 1 BURSAL SPACE Right 12/25/2016 FOOT DEBRIDEMENT INCISION AND DRAINAGE, 5TH DIGIT, PARTIAL AMB. PLACEMENT OF ANTIBOTIC BEADS performed by Gabriel Haile DPM at [facility] OR RI I&D BELOW FASCIA FOOT 1 BURSAL SPACE Right 04/10/2017 RIGHT ANKLE AND RIGHT HEEL DEBRIDEMENT INCISION AND DRAINAGE WITH CULTURES SENT performed by William Jimenez MD at [facility] OR RI OFFICE/OUTPT VISIT,PROCEDURE ONLY Right 06/14/2017 FOOT DEBRIDEMENT INCISION AND DRAINAGE-ANKLE INCLUDING BONE BIOPSY performed by Yakov Min DPM at [facility] OR TOE AMPUTATION Right 12/25/2016 right fifth [...] Mixed hyperlipidemia 04/25/2015 Hyponatremia 04/25/2015 Diabetes mellitus ([facility]) 07/02/2011 Paraplegia ([facility]) 03/12/2011 MSSA (methicillin susceptible Staphylococcus aureus) infection 05/28/2017 Bacterial infection 02/17/2017 Enterococcus faecalis infection 12/28/2016 Skin ulcer of right heel with fat layer exposed ([facility]) 09/02/2016 Skin ulcer of right 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 ([facility]) 04/25/2015 Decubitus ulcer of coccygeal region 07/19/2013 Cauda equina syndrome ([facility]) 12/09/2011 Open wound of knee, leg (except thigh), and ankle, complicated 02/25/2011 Acute kidney injury superimposed on CKD ([facility]) 06/23/2022 Abnormal EKG 06/23/2022 Neurogenic bladder 06/23/2022 Hyperkalemia 06/22/2022 Osteomyelitis of ankle or foot, right, acute ([facility]) Decubitus ulcer of coccygeal region, stage 4 ([facility]) 04/09/2017 Cellulitis 04/08/2017 Morbid obesity due to excess calories ([facility]) 01/01/2017 Acute on chronic renal failure ([facility]) 12/30/2016 Osteomyelitis of right foot ([facility]) Hypertension Depression PLAN: Abnormal EKG Agree with [...] with the plan. Sincerely, Zoila Villafuerte PA-C [facility] [employer] Administrator [address] [place] [id number] , I believe that the risk of [...] will continue to monitor. Occupational Therapy Facility/Department: [facility] Daily Treatment Note NAME: Ganga [...] Bed Mobility Training: (positioned on side for Tigermed to complete ultrasound at end of session) [...] prep on 06/25/2022 6pm KATERINA ATKINS MD [facility] Gastroenterology Images from the original note [...] IRon Monitor labs Nutrition status: morbid obesity Dispatcher Street Department consult initiated Hospital Prophylaxis: DVT: Heparin Stress Ulcer: na Disposition: Shared decision making: All test results, treatment options and disposition options were discussed with the patient today Social determinants of health that may impact management: none Code status: Full Code Disposition: Discharge plan is home [facility] Advanced Care Planning documentation: [x] I have [...] the patient's medical record. [DOES NOT SATISFY [facility] PERFORMANCE] Shelly Mondragon APRN - [employer]NE[employer] S[employer] FINISHER , HEEL ROOM SUPERVISOR, HAND SOLE SEWER-C Hospitalist Medicine 06/24/2022, 7:34 AM Blood Transfusion [...] with transfusion of blood components. Shelly Mondragon APRN-MANNEQUIN SANDER AND FINISHER Associated attestation - Matias Doss MD - 06/24/2022 9:40 PM EDT Images from the original note were not included. [address], [address] Attestation Patient: Ganga Stinson Date of Admission: 06/22/2022 4:21 PM Hospital Day # 2 Date of Evaluation: 06/24/2022 I personally evaluated and examined the patient [id number] in conjunction with the PA/HAND SOLE SEWER and agree with the management and dispostition of the patient. Please see the PA/HAND SOLE SEWER's note for full details. My kohli findings [...] with the plan as outlined in the HAND SOLE SEWER/PA's note Disposition: Discharge plan is pending, GI, Cardiology, Urology consultations, Transfuse if pRBC <7, wound care to the affected area and monitor electrolytes. Please note that this chart was generated using voice recognition Matrix-[employer] dictation software. Although every effort was made to ensure the accuracy of this automated dust collector ore crushing, some errors in dust collector ore crushing may have occurred. Matias Doss MD 06/24/2022 9:[address] Doss and informed him of critical lab levels. No new orders. Parking Lot Spotter at bedside at this time to perform [...] this time and patient transferred over to [facility]. Parking Lot Spotter at bedside at this time to perform initial shift assessment. Patient is lying in bed at this time. Vital signs taken and assessment completed at this time. Patient is alert and oriented and has no complaints of pain at this time. Patient denies any further needs at this time. Call light within reach, care ongoing. Physical Therapy Facility/Department: [facility] Daily Treatment Note NAME: Ganga [...] 38 Eloise Lopez PTA Occupational Therapy Facility/Department: [facility] Daily Treatment Note NAME: Ganga [...] after having a BM. Physical Therapy Facility/Department: [facility] Physical Therapy Initial Assessment Name: [...] Ambulation Assistance: Non-ambulatory Transfer Assistance: Independent Active Basket Operator: No Additional Comments: Pt. with hx of [...] Sarah Hare, PT, DPT Occupational Therapy Facility/Department: [facility] Occupational Therapy Initial Assessment Name: [...] Ambulation Assistance: Non-ambulatory Transfer Assistance: Independent Active Basket Operator: No Additional Comments: Pt. with hx of [...] to Severe Extremities (+ 2 pitting BLE) Coordinate Measuring Machine Operator Strength: Not Performed Nutrition Assessment: Altered nutrition [...] Anthropometric Measures: Height: 5' 11 (180.3 cm) [place] Body Weight (IBW): 172 lbs (78 kg) [...] Used for Energy Requirements: Current Energy (kcal/day): 0262-2239 (20-23/kg) Weight Used for Protein Requirements: [place] Protein (g/day): 109-133g (1.4-1.7g/kg) Method Used for [...] Nutrition Supplement [address]A [address], LD Contact: [phone] Parking Lot Spotter at bedside for reassessment-see flow sheet for details. Patient remains alert and oriented x4-calm and cooperative. Patient continues to deny pain and discomfort. Incontinence and stewart care provided. Denying any additional needs, call light placed within reach, bed in lowest position and alarm engaged to promote patient safety. Will continue to monitor. Parking Lot Spotter attempted to place rowe catheter at this time- unable to advance 16 FR catheter. Rn Drupal Architect notified and will attempt- will continue to monitor. Patient reports no pain or discomfort. Parking Lot Spotter phoned Dr. Doss at this informing physician [...] to monitor. documented in this encounter [facility] Submittable Work Phone: 06-26-2022 Hospital Discharg e instructions [...] dietitian. Regular documented in this encounter [facility] [employer] Phone: 06-02-2022 Progress note Note Date/Time June 02, 2022 12:14pm [facility] [address] [place] [address] Wound Center Provider Note Signed Patient: Ganga Stinson MR#: [id number] : 1960 Acct:[id number] Age/Sex: 61 / M Copies to: MD Fidel Whitmore MD~ HPI Date of Visit Date of Visit: Date of Service: 06/02/2022 Time of Service: 12:01 Narrative HPI: Patient is being followed for his chronic bilateral ischial, sacral and right foot ulcers. His is doing his dressing changes. Patient has been having some right hip pain and underwent a CT scan in [place] on 03/14/2022. This showed slight deepening of [...] Constitutional: Denies fever(s) Integumentary/Breasts Skin/Breast: Reports wounds [facility] Medical History (Updated 06/02/22 @ [...] Sacrum: Bed Appearance: Beefy Red, Bone Palpable, [place] and Yellow Percent of Wound Bed Granulated/Red: 90 Percent of Devitalized: 10 Length (cm): 3.5 Width (cm): 1.8 Depth (cm): 2 CM Sq: 6.300 Undermining Position: 360 Undermining Depth: 3 Surrounding Tissue Appearance: [place] Surrounding Tissue Temp: Warm Drainage Amount: Large Drainage Description: Serosanguineous Drainage Odor: No Odor Left Ischium: Bed Appearance: Beefy Red, Bone Palpable, [place] and Yellow Percent of Wound Bed Granulated/Red: 90 Percent of Devitalized: 10 Length (cm): 7 Width (cm): 6 Depth (cm): 5.5 CM Sq: 42.000 Surrounding Tissue Appearance: [place] Surrounding Tissue Temp: Warm Drainage Amount: Large Drainage Description: Serosanguineous Drainage Odor: No Odor Right Ischium: Bed Appearance: Beefy Red, Bone Palpable, [place] and Yellow Percent of Wound Bed Granulated/Red: 90 Percent of Devitalized: 10 Length (cm): 0.7 Width (cm): 1 Depth (cm): 4 CM Sq: 0.700 Surrounding Tissue Appearance: [place] Surrounding Tissue Temp: Warm Drainage Amount: Moderate Drainage Description: Serosanguineous Drainage Odor: No Odor Left Ankle: Bed Appearance: Brown, [place] and Yellow Percent of Wound Bed Granulated/Red: 5 Percent of Devitalized: 95 Length (cm): 3.5 Width (cm): 2.5 Depth (cm): 0.1 CM Sq: 8.750 Surrounding Tissue Appearance: [place] Surrounding Tissue Temp: Warm Drainage Amount: Moderate Drainage Description: Serosanguineous Drainage Odor: No Odor Medial Ankle: Bed Appearance: Brown, [place] and Yellow Percent of Wound Bed Granulated/Red: 50 Percent of Devitalized: 50 Length (cm): 3.5 Width (cm): 4 Depth (cm): 0.1 CM Sq: 14.000 Surrounding Tissue Appearance: [place] Surrounding Tissue Temp: Warm Drainage Amount: Moderate Drainage Description: Serosanguineous Drainage Odor: No Odor Medial Foot: Bed Appearance: Black Dry, Brown, [place] and Hardware Percent of Wound Bed Granulated/Red: 5 Percent of Devitalized: 95 Length (cm): 2 Width (cm): 1.2 Depth (cm): 0.1 CM Sq: 2.400 Surrounding Tissue Appearance: [place] Surrounding Tissue Temp: Warm Drainage Amount: Moderate [...] Diabetes mellitus type: type 2 Diabetes mellitus computer terminal operator insulin use:with assisted use Diabetes mellitus complication status: with skin complications Diabetes mellitus complication detail: with other skin ulcer Qualified Code(s): E11.622 - Type 2 diabetes mellitus with other skin ulcer; Z79.4 - 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 Code(s): E11.9 - [...] signed by MD Cathy Brar> 06/02/22 1214 [facility] Work Phone: 1(626) 172-656612-06-2022 Progress note Author Cathy Brar [facility] March 03, 2022 12:06pm Note Date/Time March 03, 2022 1 2:06pm [facility] [address] [place] [address] Wound Center Provider Note Signed Patient: Ganga Stinson MR#: [id number] : 1960 Acct:[id number] Age/Sex: 61 / M Copies to: MD [...] Ischium: Bed Appearance: Beefy Red, Bone Palpable, [place] and Yellow Percent of Wound Bed Granulated/Red: [...] Bed Appearance: Beefy Red, Bone Palpable, Devitalized, [place], Yellow and Rolled [place]ges Percent of Wound Bed Granulated/Red: 50 Percent of Devitalized: 50 Length (cm): 0.7 Width (cm): 0.8 Depth (cm): 4.0 CM Sq: 0.560 Undermining Position: 0 Undermining Depth: 0 Surrounding Tissue Appearance: Macerated and Rolled Edges Surrounding Tissue Temp: Warm Drainage Amount: Moderate Drainage Description: Serosanguineous Drainage Odor: No Odor Lidocaine Applied Topically: 2% Jelly Right Buttock: Bed Appearance: Devitalized, [place] and Yellow Percent of Wound Bed Granulated/Red: 100 Percent of Devitalized: 0 Length (cm): 0 Width (cm): 0 Depth (cm): 0 CM Sq: 0.000 Surrounding Tissue Appearance: Hyperpigmented Surrounding Tissue Temp: Warm Drainage Amount: None Drainage Description: Serosanguineous Drainage Odor: No Odor Lidocaine Applied Topically: 2% Jelly Right Lower Medial Leg: Bed Appearance: [place] and Yellow Percent of Wound Bed Granulated/Red: [...] Diabetes mellitus type: type 2 Diabetes mellitus computer terminal operator insulin use:with computer terminal operator use Diabetes mellitus complication status: with skin complications Diabetes mellitus complication detail: with other skin ulcer Qualified Code(s): E11.622 - Type 2 diabetes mellitus with other skin ulcer; Z79.4 - jail (current) use of insulin Code(s): E11.9 - [...] signed by MD Cathy Brar> 03/03/22 120[address] [facility] Work Phone: 1(166) 277-587412-02-2022 NotePROCEDURE: XR HIP RT 2 3V W [...] Electronically authenticated by: KHADAR MEDINA Date: 2022-02-27 07:17[facility]11-01-2022 Progress note Author Cathy Brar [facility] January 27, 2022 12:11pm Note Date/Time January 27, 2022 1 2:11pm [facility] [address] [place] [address] Wound Center Provider Note Signed Patient: Ganga Stinson MR#: [id number] : 1960 Acct:[id number] Age/Sex: 61 / M Copies to: MD [...] 360 Undermining Depth: 3.5 Surrounding Tissue Appearance: [place] and Rolled Edges Surrounding Tissue Temp: Warm Drainage Amount: Large Drainage Description: Serosanguineous Drainage Odor: No Odor Lidocaine Applied Topically: 2% Jelly Right Heel: Bed Appearance: Beefy Red, [place] and Yellow Percent of Wound Bed Granulated/Red: 50 Percent of Devitalized: 50 Length (cm): 1.0 Width (cm): 1.4 Depth (cm): 0.1 CM Sq: 1.400 Surrounding Tissue Appearance: Peeling and Dryness Surrounding Tissue Temp: Warm Drainage Amount: Small Drainage Description: Serosanguineous Drainage Odor: No Odor Lidocaine Applied Topically: 2% Jelly Right Ischium: Bed Appearance: Beefy Red, Bone Palpable, [place] and Yellow Percent of Wound Bed Granulated/Red: [...] Bed Appearance: Beefy Red, Bone Palpable, Devitalized, [place], Yellow and Rolled Edges Percent of Wound Bed Granulated/Red: 50 Percent of Devitalized: 50 Length (cm): 1.5 Width (cm): 1.0 Depth (cm): 4.0 CM Sq: 1.500 Undermining Position: 10-3:00 Undermining Depth: 3.5 Surrounding Tissue Appearance: Macerated and Rolled Edges Surrounding Tissue Temp: Warm Drainage Amount: Moderate Drainage Description: Serosanguineous Drainage Odor: No Odor Lidocaine Applied Topically: 2% Jelly Right Buttock: Bed Appearance: Devitalized, [place] and Yellow Percent of Wound Bed Granulated/Red: 100 Percent of Devitalized: 0 Length (cm): 0 Width (cm): 0 Depth (cm): 0 CM Sq: 0.000 Surrounding Tissue Appearance: [place] Surrounding Tissue Temp: Warm Drainage Amount: None Drainage Description: Serosanguineous Drainage Odor: No Odor Lidocaine Applied Topically: 2% Jelly Right Lower Medial Leg: Bed Appearance: [place] and Yellow Percent of Wound Bed Granulated/Red: [...] Diabetes mellitus type: type 2 Diabetes mellitus assisted insulin use:with computer terminal operator use Diabetes mellitus complication status: with skin complications Diabetes mellitus complication detail: with other skin ulcer Qualified Code(s): E11.622 - Type 2 diabetes mellitus with other skin ulcer; Z79.4 - 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 Code(s): E11.9 - [...] signed by MD Cathy Brar> 01/27/22 1211 [facility] Work Phone: [phone] 307-735509-27-2022 Progress note Author Cathy Brar [facility] December 23, 2021 12:32pm Note Date/Time December 23, 2021 12:32pm [facility] [address] [place] [address] Wound Center Provider Note Signed Patient: Ganga Stinson MR#: [id number] : 1960 Acct:[id number] Age/Sex: 61 / M Copies to: MD [...] Bed Appearance: Beefy Red, Bone Palpable, Devitalized, [place] and Yellow Percent of Wound Bed Granulated/Red: 95 Percent of Devitalized: 5 Length (cm): 3.2 Width (cm): 2 Depth (cm): 2.5 CM Sq: 6.400 Undermining Position: 10-4:00 Undermining Depth: 5 Surrounding Tissue Appearance: [place] and Macerated Surrounding Tissue Temp: Warm Drainage Amount: Large Drainage Description: Serosanguineous Drainage Odor: No Odor Lidocaine Applied Topically: 2% Jelly Right Heel: Bed Appearance: Beefy Red, Devitalized, Epithelial Tissue or Bridge, [place] and Yellow Percent of Wound Bed Granulated/Red: 90 Percent of Devitalized: 10 Length (cm): 3 Width (cm): 8 Depth (cm): 0.1 CM Sq: 24.000 Surrounding Tissue Appearance: Peeling and Dryness Surrounding Tissue Temp: Warm Drainage Amount: Large Drainage Description: Serosanguineous Drainage Odor: No Odor Lidocaine Applied Topically: 2% Jelly Right Ischium: Bed Appearance: Beefy Red, Bone Palpable, Devitalized, Epithelial Tissue or Bridge, [place] and Yellow Percent of Wound Bed Granulated/Red: 95 Percent of Devitalized: 5 Length (cm): 5 Width (cm): 5 Depth (cm): 5 CM Sq: 25.000 Undermining Position: 12-6:00 Undermining Depth: 1 Surrounding Tissue Appearance: Macerated Surrounding Tissue Temp: Warm Drainage Amount: Large Drainage Description: Serosanguineous Drainage Odor: No Odor Lidocaine Applied Topically: 2% Jelly Left Ischium: Bed Appearance: Beefy Red, Bone Palpable, Devitalized, [place] and Yellow Percent of Wound Bed Granulated/Red: 95 Percent of Devitalized: 5 Length (cm): 1.6 Width (cm): 1.6 Depth (cm): 3.5 CM Sq: 2.560 Undermining Position: 10-3:00 Undermining Depth: 3.5 Surrounding Tissue Appearance: Macerated Surrounding Tissue Temp: Warm Drainage Amount: Moderate Drainage Description: Serosanguineous Drainage Odor: No Odor Lidocaine Applied Topically: 2% Jelly Right Buttock: Bed Appearance: Devitalized, [place] and Yellow Percent of Wound Bed Granulated/Red: 95 Percent of Devitalized: 5 Length (cm): 1.5 Width (cm): 0.5 Depth (cm): 0.1 CM Sq: 0.750 Surrounding Tissue Appearance: [place] and Callous Surrounding Tissue Temp: Warm Drainage Amount: Small Drainage Description: Serosanguineous Drainage Odor: No Odor Lidocaine Applied Topically: 2% Jelly Right Lower Lateral Leg: Bed Appearance: Beefy Red, Devitalized, [place] and Yellow Percent of Wound Bed Granulated/Red: 10 Percent of Devitalized: 90 Length (cm): 0 Width (cm): 0 Depth (cm): 0 CM Sq: 0.000 Surrounding Tissue Appearance: Hyperpigmented Surrounding Tissue Temp: Warm Drainage Amount: None Drainage Description: Serosanguineous Drainage Odor: No Odor Lidocaine Applied Topically: 2% Jelly Right Lower Medial Leg: Bed Appearance: Devitalized, Epithelial Tissue or Bridge, [place] and Yellow Percent of Wound Bed Granulated/Red: [...] Diabetes mellitus type: type 2 Diabetes mellitus assisted insulin use:with computer terminal operator use Diabetes mellitus complication status: with skin complications Diabetes mellitus complication detail: with other skin ulcer Qualified Code(s): E11.622 - Type 2 diabetes mellitus with other skin ulcer; Z79.4 - jail (current) use of insulin Code(s): E11.9 - [...] Orders: Dictated By: Cathy Brar MD DD/ [id number] Signed By: <Electronically signed by MD Cathy Brar> 12/23/[address] [facility] Work Phone: [phone]) 716-152208-23-2022 Progress note Author Cathy Brar [facility] November 18, 2021 11:55am Note Date/Time November 18, 2021 11 :55am [facility] [address] [place] [address] Wound Center Provider Note Signed Patient: Ganga Stinson MR#: [id number] : 1960 Acct:[id number] Age/Sex: 61 / M Copies to: MD [...] Bed Appearance: Beefy Red, Bone Palpable, Devitalized, [place] and Yellow Percent of Wound Bed Granulated/Red: 75 Percent of Devitalized: 25 Length (cm): 3.5 Width (cm): 2.0 Depth (cm): 2.5 CM Sq: 7.000 Undermining Position: 360 (deepest at 3) Undermining Depth: 3.5 Surrounding Tissue Appearance: Hyperpigmented Surrounding Tissue Temp: Warm Drainage Amount: Large Drainage Description: Serosanguineous Drainage Odor: No Odor Lidocaine Applied Topically: 2% Jelly Right Heel: Bed Appearance: Devitalized, [place] and Yellow Percent of Wound Bed Granulated/Red: 1 Percent of Devitalized: 99 Length (cm): 1.6 Width (cm): 2.3 Depth (cm): 0.1 CM Sq: 3.680 Surrounding Tissue Appearance: Hyperpigmented Surrounding Tissue Temp: Warm Drainage Amount: Large Drainage Description: Serosanguineous Drainage Odor: No Odor Lidocaine Applied Topically: 2% Jelly Right Ischium: Bed Appearance: Beefy Red, Bone Palpable, Devitalized, Epithelial Tissue or Bridge, [place] and Yellow Percent of Wound Bed Granulated/Red: [...] Bed Appearance: Beefy Red, Bone Palpable, Devitalized, [place] and Yellow Percent of Wound Bed Granulated/Red: 90 Percent of Devitalized: 10 Length (cm): 2.0 Width (cm): 2.0 Depth (cm): 3.5 CM Sq: 4.000 Undermining Position: 9-11:00 Undermining Depth: 4.0 Surrounding Tissue Appearance: Hyperpigmented Surrounding Tissue Temp: Warm Drainage Amount: Moderate Drainage Description: Serosanguineous Drainage Odor: No Odor Lidocaine Applied Topically: 2% Jelly Right Buttock: Bed Appearance: Beefy Red, Devitalized, [place] and Yellow Percent of Wound Bed Granulated/Red: 95 Percent of Devitalized: 5 Length (cm): 2.4 Width (cm): 1.0 Depth (cm): 0.1 CM Sq: 2.400 Surrounding Tissue Appearance: Hyperpigmented Surrounding Tissue Temp: Warm Drainage Amount: Moderate Drainage Description: Serosanguineous Drainage Odor: No Odor Lidocaine Applied Topically: 2% Jelly Right Lower Lateral Leg: Bed Appearance: Beefy Red, Devitalized, [place] and Yellow Percent of Wound Bed Granulated/Red: 10 Percent of Devitalized: 90 Length (cm): 1.3 Width (cm): 1.4 Depth (cm): 0.1 CM Sq: 1.820 Surrounding Tissue Appearance: Hyperpigmented Surrounding Tissue Temp: Warm Drainage Amount: Moderate Drainage Description: Serosanguineous Drainage Odor: No Odor Lidocaine Applied Topically: 2% Jelly Right Lower Medial Leg: Bed Appearance: Black Dry, Devitalized, Epithelial Tissue or Bridge, [place] and Yellow Percent of Wound Bed Granulated/Red: [...] Diabetes mellitus type: type 2 Diabetes mellitus computer terminal operator insulin use:with computer terminal operator use Diabetes mellitus complication status: with skin complications Diabetes mellitus complication detail: with other skin ulcer Qualified Code(s): E11.622 - Type 2 diabetes mellitus with other skin ulcer; Z79.4 - jail (current) use of insulin Code(s): E11.9 - [...] <Electronically signed by MD Cathy Brar> 11/18/21 3820 [facility] Work Phone: [phone] 224-322507-26-2022 Progress note Author Cathy Brar [facility] October 21, 2021 11:44am Note Date/Time October 21, 2021 11:4 4am [facility] [address] [place] [address] Wound Center Provider Note Signed Patient: Ganga Stinson MR#: [id number] : 1960 Acct:[id number] Age/Sex: 61 / M Copies to: MD [...] Bed Appearance: Beefy Red, Bone Palpable, Devitalized, [place] and Yellow Percent of Wound Bed Granulated/Red: 75 Percent of Devitalized: 25 Length (cm): 4.2 Width (cm): 3.0 Depth (cm): 3.0 CM Sq: 12.600 Undermining Position: 360 (deepest at 3) Undermining Depth: 3.5 Surrounding Tissue Appearance: Hyperpigmented Surrounding Tissue Temp: Warm Drainage Amount: Large Drainage Description: Serosanguineous Drainage Odor: No Odor Lidocaine Applied Topically: 2% Jelly Right Heel: Bed Appearance: Devitalized, [place] and Yellow Percent of Wound Bed Granulated/Red: 50 Percent of Devitalized: 50 Length (cm): 2.3 Width (cm): 3.2 Depth (cm): 0.1 CM Sq: 7.360 Surrounding Tissue Appearance: Hyperpigmented Surrounding Tissue Temp: Warm Drainage Amount: Large Drainage Description: Serosanguineous Drainage Odor: No Odor Lidocaine Applied Topically: 2% Jelly Right Ischium: Bed Appearance: Beefy Red, Bone Palpable, Devitalized, Epithelial Tissue or Bridge, [place] and Yellow Percent of Wound Bed Granulated/Red: [...] Bed Appearance: Beefy Red, Bone Palpable, Devitalized, [place] and Yellow Percent of Wound Bed Granulated/Red: 90 Percent of Devitalized: 10 Length (cm): 3.0 Width (cm): 1.6 Depth (cm): 4.5 CM Sq: 4.800 Undermining Position: 9-11:00 Undermining Depth: 1.0 Surrounding Tissue Appearance: Hyperpigmented Surrounding Tissue Temp: Warm Drainage Amount: Moderate Drainage Description: Serosanguineous Drainage Odor: No Odor Lidocaine Applied Topically: 2% Jelly Right Buttock: Bed Appearance: Beefy Red, Devitalized, [place] and Yellow Percent of Wound Bed Granulated/Red: 80 Percent of Devitalized: 20 Length (cm): 2.2 Width (cm): 1.1 Depth (cm): 0.1 CM Sq: 2.420 Surrounding Tissue Appearance: Hyperpigmented Surrounding Tissue Temp: Warm Drainage Amount: Moderate Drainage Description: Serosanguineous Drainage Odor: No Odor Lidocaine Applied Topically: 2% Jelly Right Lower Lateral Leg: Bed Appearance: Beefy Red, Devitalized, [place] and Yellow Percent of Wound Bed Granulated/Red: 10 Percent of Devitalized: 90 Length (cm): 1.3 Width (cm): 1.4 Depth (cm): 0.1 CM Sq: 1.820 Surrounding Tissue Appearance: Hyperpigmented Surrounding Tissue Temp: Warm Drainage Amount: Moderate Drainage Description: Serosanguineous Drainage Odor: No Odor Lidocaine Applied Topically: 2% Jelly Right Lower Medial Leg: Bed Appearance: Black Dry, Devitalized, [place] and Yellow Percent of Wound Bed Granulated/Red: 80 Percent of Devitalized: 20 Length (cm): 1.6 Width (cm): 2.5 Depth (cm): 0.1 CM Sq: 4.000 Surrounding Tissue Appearance: Hyperpigmented Surrounding Tissue Temp: Warm Drainage Amount: Moderate Drainage Description: Serosanguineous Drainage Odor: No Odor Lidocaine Applied Topically: 2% Jelly Right Foot: Bed Appearance: Beefy Red, Devitalized, Epithelial Tissue or Bridge, [place] and Yellow Percent of Wound Bed Granulated/Red: [...] Diabetes mellitus type: type 2 Diabetes mellitus computer terminal operator insulin use:with assisted use Diabetes mellitus complication status: with skin complications Diabetes mellitus complication detail: with other skin ulcer Qualified Code(s): E11.622 - Type 2 diabetes mellitus with other skin ulcer; Z79.4 - 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 Code(s): E11.9 - [...] signed by MD Cathy Brar> 10/21/[address] [facility] Work Phone: 1([phone] 173-429706-21-2022 Progress note Author Cathy Brar [facility] September 16, 2021 11:55am Note Date/Time September 16, 2021 11:5 1am [facility] [address] [place] [address] Wound Center Provider Note Signed Patient: Ganga Stinson MR#: [id number] : 1960 Acct:[id number] Age/Sex: 61 / M Copies to: MD [...] Wound/Ulcer Sacrum: Bed Appearance: Bone Palpable, Devitalized, [place] and Yellow Percent of Wound Bed Granulated/Red: [...] Heel: Bed Appearance: Black Moist, Brown, Devitalized, [place] and Yellow Percent of Wound Bed Granulated/Red: 95 Percent of Devitalized: 5 Length (cm): 3.4 Width (cm): 5.1 Depth (cm): 0.1 CM Sq: 17.340 Surrounding Tissue Appearance: Hyperpigmented Surrounding Tissue Temp: Warm Drainage Amount: Large Drainage Description: Serosanguineous Drainage Odor: No Odor Lidocaine Applied Topically: 2% Jelly Right Ischium: Bed Appearance: Beefy Red, Devitalized, Epithelial Tissue or Bridge, [place] and Yellow Percent of Wound Bed Granulated/Red: 90 Percent of Devitalized: 10 Length (cm): 5.1 Width (cm): 5.5 Depth (cm): 4 CM Sq: 28.050 Undermining Position: 1-3:00 Undermining Depth: 1.5 Surrounding Tissue Appearance: Hyperpigmented Surrounding Tissue Temp: Warm Drainage Amount: Large Drainage Description: Serosanguineous Drainage Odor: No Odor Lidocaine Applied Topically: 2% Jelly Left Ischium: Bed Appearance: Beefy Red, Bone Palpable, Devitalized, [place] and Yellow Percent of Wound Bed Granulated/Red: 90 Percent of Devitalized: 10 Length (cm): 3.9 Width (cm): 1.8 Depth (cm): 5 CM Sq: 7.020 Undermining Position: 9-11:00 Undermining Depth: 2.2 Surrounding Tissue Appearance: Hyperpigmented Surrounding Tissue Temp: Warm Drainage Amount: Moderate Drainage Description: Serosanguineous Drainage Odor: No Odor Lidocaine Applied Topically: 2% Jelly Right Buttock: Bed Appearance: Beefy Red, Devitalized, [place] and Yellow Percent of Wound Bed Granulated/Red: 99 Percent of Devitalized: 1 Length (cm): 2.3 Width (cm): 0.9 Depth (cm): 0.2 CM Sq: 2.070 Surrounding Tissue Appearance: Hyperpigmented Surrounding Tissue Temp: Warm Drainage Amount: Moderate Drainage Description: Serosanguineous Drainage Odor: No Odor Lidocaine Applied Topically: 2% Jelly Right Lower Lateral Leg: Bed Appearance: Beefy Red, Devitalized, [place] and Yellow Percent of Wound Bed Granulated/Red: 20 Percent of Devitalized: 80 Length (cm): 3.8 Width (cm): 2.3 Depth (cm): 0.1 CM Sq: 8.740 Surrounding Tissue Appearance: Hyperpigmented Surrounding Tissue Temp: Warm Drainage Amount: Moderate Drainage Description: Serosanguineous Drainage Odor: No Odor Lidocaine Applied Topically: 2% Jelly Right Lower Medial Leg: Bed Appearance: Black Dry, Devitalized, [place] and Yellow Percent of Wound Bed Granulated/Red: 75 Percent of Devitalized: 25 Length (cm): 2.5 Width (cm): 2.7 Depth (cm): 0.2 CM Sq: 6.750 Surrounding Tissue Appearance: Hyperpigmented Surrounding Tissue Temp: Warm Drainage Amount: Moderate Drainage Description: Serosanguineous Drainage Odor: No Odor Lidocaine Applied Topically: 2% Jelly Right Foot: Bed Appearance: Beefy Red, Devitalized, Epithelial Tissue or Bridge, [place] and Yellow Percent of Wound Bed Granulated/Red: [...] Diabetes mellitus type: type 2 Diabetes mellitus computer terminal operator insulin use:with assisted use Diabetes mellitus complication status: with skin complications Diabetes mellitus complication detail: with other skin ulcer Qualified Code(s): E11.622 - Type 2 diabetes mellitus with other skin ulcer; Z79.4 - jail (current) use of insulin Code(s): E11.9 - [...] signed by MD Cathy Brar> 09/16/21 1155 [facility] Work Phone: 1(173) 350-172705-03-2022 Progress note Author Cathy Brar [facility] July 29, 2021 12:33pm Note Date/Time July 29, 2021 12:33p [facility] [address] [place] [address] Wound Center Provider Note Signed Patient: Ganga Stinson MR#: [id number] : 1960 Acct:[id number] Age/Sex: 61 / M Copies to: MD [...] down Wound/Ulcer Sacrum: Bed Appearance: Bone Palpable, [place] and Yellow Percent of Wound Bed Granulated/Red: 50 Percent of Devitalized: 50 Length (cm): 2.6 Width (cm): 2.0 Depth (cm): 3.0 CM Sq: 5.200 Undermining Position: 9-4 (deepest at 4) Undermining Depth: 5.4 Surrounding Tissue Appearance: Hyperpigmented Surrounding Tissue Temp: Warm Drainage Amount: Large Drainage Description: Serosanguineous Drainage Odor: No Odor Lidocaine Applied Topically: 2% Jelly Right Heel: Bed Appearance: Black Moist, Brown, [place] and Yellow Percent of Wound Bed Granulated/Red: 15 Percent of Devitalized: 85 Length (cm): 6.0 Width (cm): 9.0 Depth (cm): 0.5 CM Sq: 54.000 Surrounding Tissue Appearance: Hyperpigmented Surrounding Tissue Temp: Warm Drainage Amount: Large Drainage Description: Serosanguineous Drainage Odor: No Odor Lidocaine Applied Topically: 2% Jelly Right Ischium: Bed Appearance: Beefy Red, Epithelial Tissue or Bridge, [place] and Yellow Percent of Wound Bed Granulated/Red: 50 Percent of Devitalized: 50 Length (cm): 9.3 Width (cm): 7.9 Depth (cm): 5.2 CM Sq: 73.470 Undermining Position: 360 (deepest at 7) Undermining Depth: 2.3 Surrounding Tissue Appearance: Hyperpigmented Surrounding Tissue Temp: Warm Drainage Amount: Large Drainage Description: Serosanguineous Drainage Odor: No Odor Lidocaine Applied Topically: 2% Jelly Left Ischium: Bed Appearance: [place] and Yellow Percent of Wound Bed Granulated/Red: 50 Percent of Devitalized: 50 Length (cm): 1.7 Width (cm): 1.5 Depth (cm): 3.5 CM Sq: 2.550 Undermining Position: 3-8 Undermining Depth: 4.5 Surrounding Tissue Appearance: Hyperpigmented Surrounding Tissue Temp: Warm Drainage Amount: Moderate Drainage Description: Serosanguineous Drainage Odor: No Odor Lidocaine Applied Topically: 2% Jelly Right Buttock: Bed Appearance: Beefy Red, [place] and Yellow Percent of Wound Bed Granulated/Red: 75 Percent of Devitalized: 25 Length (cm): 6.6 Width (cm): 2.0 Depth (cm): 0.1 CM Sq: 13.200 Surrounding Tissue Appearance: Hyperpigmented Surrounding Tissue Temp: Warm Drainage Amount: Moderate Drainage Description: Serosanguineous Drainage Odor: No Odor Lidocaine Applied Topically: 2% Jelly Right Lower Lateral Leg: Bed Appearance: Beefy Red, [place] and Yellow Percent of Wound Bed Granulated/Red: 50 Percent of Devitalized: 50 Length (cm): 1.8 Width (cm): 1.5 Depth (cm): 0.1 CM Sq: 2.700 Surrounding Tissue Appearance: Hyperpigmented Surrounding Tissue Temp: Warm Drainage Amount: Moderate Drainage Description: Serosanguineous Drainage Odor: No Odor Lidocaine Applied Topically: 2% Jelly Right Lower Medial Leg: Bed Appearance: Black Dry, [place] and Yellow Percent of Wound Bed Granulated/Red: [...] Diabetes mellitus type: type 2 Diabetes mellitus computer terminal operator insulin use:with computer terminal operator use Diabetes mellitus complication status: with skin complications Diabetes mellitus complication detail: with other skin ulcer Qualified Code(s): E11.622 - Type 2 diabetes mellitus with other skin ulcer; Z79.4 - jail (current) use of insulin Code(s): E11.9 - [...] will attempt to obtain that note from income tax investigator in [place]. See Instructions for Orders See Instructions for Orders See Wound Discharge Instructions for Orders: Patient may require serial debridement to remove devitalized tissue and encourage granulation. Dictated By: Cathy Brar MD DD/ [id number] Signed By: <Electronically signed by MD Cathy Brar> 07/29/21 1233 [facility] Work Phone: Evaluation + Plan note No data available for this section [facility] evaluation note* Diagnosis Onset Date Resolution Status Right hip pain acute Stage IV pressure ulcer of sacral region acute Unstageable pressure ulcer of right heel acute Cauda equina spinal cord injury chronic Diabetes chronic Pressure ulcer of left hip, stage 3 resolved Pressure ulcer of right hip, stage [address] [facility] Work Phone: Evaluation note* Diagnosis Neurogenic bladder Neurogenic bladder, NOS documented in this encounter [facility] Work Phone: [email or web address] note* Diagnosis Neurogenic bladder Neurogenic bladder, NOS documented in this encounter [facility] Phone: [email or web address] note* Diagnosis Hyperkalemia- Primary Hyperpotassemia Acute kidney [...] of neurogenic bladder documented in this encounter [facility] Phone: evaluation note* Diagnosis Acute kidney injury (HCC) Acute kidney failure, unspecified Iron deficiency anemia, unspecified iron deficiency anemia type documented in this [facility] Work Phone: evaluation note* Diagnosis Onset Date Resolution Status Pressure injury of left ischium, stage 4 acute Pressure injury of right ischium, stage 4 acute Pressure ulcer of right foot, stage 2 acute Right hip pain acute 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 Diabetes [facility] Work Phone: Evaluation note* Diagnosis Cauda equina syndrome (HCC) Cauda equina syndrome without mention of neurogenic bladder Neurogenic bladder Neurogenic bladder, NOS Urinary retention Retention of urine, unspecified Urinary incontinence without sensory awareness Incontinence without sensory awareness documented in this encounter [facility]* Diagnosis Cellulitis of left foot- Primary Ulcer of left ankle, with necrosis of bone (HCC) ([facility]/HCC) Diabetes mellitus due to underlying condition with diabetic polyneuropathy, unspecified whether assisted insulin use (CMS/HCC) Acute complete paraplegia (CMS/HCC) Acute osteomyelitis of left fibula (CMS/HCC) Foot ulcer, right, with fat layer exposed (CMS/HCC) Venous insufficiency Unspecified venous (peripheral) insufficiency [facility] Diagnosis Abscess of toe, right- Primary documented [facility] this encounter [facility] No data available for this section [facility] Summary Purpose Family History Relationship Condition [...] EKG 12 Lead Angeles Nagy MD [address], [address] [place] [address] Referral ID Status Reason Start Date Expiration Date V isits Requested Visits Authorized [id number] Pending Review 06/22/2022 06/22/2023 1 1 Specialty Diagnoses / Procedures Referred By Contac t Referred To Contact Radiology Diagnoses Cauda equina syndrome (HCC) Neurogenic bladder Urinary retention Urinary incontinence without sensory awareness Procedures US RENAL COMPLETE Ashlee Erwin, HEEL ROOM SUPERVISOR - [employer]NE[employer]ANDER AND FINISHER [address] [place] [address] Referral ID Status Reason Start Date Expiration Date Visits Re quested Visits Authorized [id number] Open 09/18/2022 09/18/2023 1 1 Additional Source Comments (unrecognized sect ion and content) No Status Records FoundNo Status Records FoundNo Status Records FoundNo Status Records FoundNo Status Records FoundNo Status Records Found INFORMATION SOURCE (unrecogn ized section and content) DATE CREATED AUTHOR 09/21/2017 [facility] DATE CREATED AUTHOR AUTHOR'S ORGANIZ ATION 04/08/2022 [facility] DATE CREATED AUTHOR AUTHOR'S ORGANIZ ATION 09/27/2022 [facility] DATE CREATED AUTHOR AUTHOR'S ORGANIZ ATION 05/01/2023 [facility] DATE CREATED AUTHOR AUTHOR'S ORGANIZ ATION 05/05/2023 [facility] DATE CREATED AUTHOR AUTHOR'S ORGANIZ ATION 05/07/2023 [facility] EPIC Care Teams (unrecognized sec tion and content) Team Status: Active Member Role Status Dates Fidel Abbott MD Primary Care Provider Active Team Status: Inactive Member Role Status Dates Fidel Abbott MD Primary Care Provider Active Cathy Brar MD Attending Provider Active Supervisor Of Operations Relationship Specialty Start Date End Date Fidel Abbott MD PCP - General 07/03/15 Supervisor Of Operations Relationship Specialty Start Date End Date Fidel Abbott MD PCP - General 07/03/15 Supervisor Of Operations Relationship Specialty Start Date End Date Fidel Abbott MD PCP - General 07/03/15 Supervisor Of Operations Relationship Specialty Start Date End Date Fidel Abbott MD PCP - General 07/03/15 Supervisor Of Operations Relationship Specialty Start Date End Date Fidel Abbott MD PCP - General 07/03/15 Supervisor Of Operations Relationship Specialty Start Date End Date Fidel Abbott MD PCP - General Family Medicine 12/10/22 Fidel Abbott MD [address] [place] [id number] PCP - [place] [employer] 03/29/23 Supervisor Of Operations Relationship Specialty Start Date End Date Fidel Abbott MD PCP - General Family Medicine 12/10/22 Fidel Abbott MD [address] [place] [phone] PCP - [place] [employer] 03/29/23 Supervisor Of Operations Relationship Specialty Start Date End Date Fidel Abbott MD [address] [place] [phone] PCP - Jaron Ballard 03/29/23 Fidel Abbott MD [address] [place] [phone] PCP - General Family Medicine 05/12/23 Goals [...] kidney injury (HCC) Matias Doss MD [address] [place] [address] [facility] [id number] [place] [address] Referral ID Status Reason Start Date Expiration Date Visits Re quested Visits Authorized [id number] 1 1 Specialty Diagnoses / Procedures Referred By Contac t Referred To Contact Radiology Diagnoses Cauda equina syndrome (HCC) Neurogenic bladder Urinary retention Urinary incontinence without sensory awareness Procedures US RENAL COMPLETE Ashlee Erwin, HEEL ROOM SUPERVISOR - [employer] [address] [address] [place] [address] Referral ID Status Reason Start Date Expiration Date Visits Re quested Visits Authorized [id number] Open 09/18/2022 09/18/2023 1 1 Reason Comments [...] June Rocio)2045 (Due - Provider: Linda Ibrahim [facility]) fenofibrate (TRIGLIDE) tablet 160 mg 160 mg, [...] Orders)09 (Automatically Held - Provider: Cammy Autohold)0959 ([facility] Unhold - Provider: Dragan Voss RN)1235 (Given [...] RN - Reason: IV Fluid Infusing) 0812 ([facility] Hold - Provider: Cammy Autohold - Reason: Unreviewed Transfer Orders)09 (Automatically Held - Provider: Cammy Autohold)0959 ([facility] Unhold - Provider: Dragan Voss RN)2100 (Due) [...] Orders)0900 (Automatically Held - Provider: Cammy Kinghold)0959 ([facility] Unhold - Provider: Dragan Voss RN) Continuous Medication Order 06/24/2022 06/25/2022 06/26/2022 0.9 % sodium chloride infusion IntraVENous, at 75 mL/hr, CONTINUOUS, Starting on Wed06/22/22 at 2045 0020 (New Bag - Provider: Geneva Samayoa RN) 0812 ([facility] Hold - Provider: Cammy Autohold - Reason: Unreviewed Transfer Orders)0959 ([facility] Unhold - Provider: Dragan Voss RN)1340 (New [...] less into rate field of order. 0812 ([facility] Hold - Pro vider: Cammy Autohold - Reason: Unreviewed Transfer Orders)0959 ([facility] Unhold - Provider: Dragan Voss RN) 0.9 % sodium chloride infusion IntraVENous, at 240 mL/hr, Administer over 10 Minutes, PRN, blood administration, Starting on Wed06/24/22 at 0733, For 1 dose, For use in priming line prior to transfusion (prime via gravity) and flush line post transfusion ONLY. Discontinue once line has been cleared of remaining blood product. 0812 ([facility] Hold - Pro vider: Cammy Autohold - Reason: Unreviewed Transfer Orders)0959 ([facility] Unhold - Provider: Dragan Voss RN) acetaminophen (TYLENOL) suppository 650 mg(Linked Group 1) 650 mg, Rectal, EVERY 6 HOURS PRN, Starting on Wed06/22/22 at 2017, Until Discontinued, Pain Mild (1-3), Fever, For temp greater than 100.4 F (38 C), Administer if oral route cannot be used. 0812 ([facility] Hold - Pro vider: [facility]3] Autohold - Reason: Unreviewed Transfer Orders)0959 ([facility] Unhold - Provider: Dragan Voss RN) acetaminophen (TYLENOL) tablet 650 mg(Linked Group 1) 650 mg, Oral, EVERY 6 HOURS PRN, Starting on Wed06/22/22 at 2017, Until Discontinued, Pain Mild (1-3), Fever, For temp greater than 100.4 F (38 C), Maximum dose of acetaminophen is 4000 mg from all sources in 24 hours. 0812 ([facility] Hold - Pro vider: [facility]3] Autohold - Reason: Unreviewed Transfer Orders)0959 ([facility] Unhold - Provider: Dragan Voss RN) ondansetron (ZOFRAN) injection 4 mg(Linked Group 2) 4 mg, IntraVENous, EVERY 6 HOURS PRN, Starting on Wed06/22/22 at 2017, Until Discontinued, Nausea, Vomiting, Administer if oral route cannot be used. 0812 ([facility] Hold - Pro vider: [facility]3] Autohold - Reason: Unreviewed Transfer Orders)0959 ([facility] Unhold - Provider: Dragan Voss RN) ondansetron (ZOFRAN-ODT) disintegrating tablet 4 mg(Linked Group 2) 4 mg, Oral, EVERY 8 HOURS PRN, Starting on Wed06/22/22 at 2017, Until Discontinued, Nausea, Vomiting 0812 ([facility] Hold - Pro vider: [facility]3] Autohold - Reason: Unreviewed Transfer Orders)0959 ([facility] Unhold - Provider: Dragan Voss RN) polyethylene glycol (GLYCOLAX) packet 17 g 17 g, Oral, DAILY PRN, Starting on Wed06/22/22 at 2017, Until Discontinued, Constipation, First line therapy for constipation 0812 ([facility] Hold - Pro vider: [facility]3] Autohold - Reason: Unreviewed Transfer Orders)0959 ([facility] Unhold - Provider: Dragan Voss RN) sodium [...] BE BASED ON THE PRIMARY CLINICAL RECORDS. [facility]. provides no warranty or guarantee of the accuracy or completeness of information in this document.
[2023-05-18 12:18] LABS: Basophils Percent Auto 0.2 % (0.2-2.0); Eosinophils Absolute Auto 0.6 10^3/uL (0.0-0.7); Eosinophils Percent Auto 4.7 % (0.9-7.0); Hematocrit 26.2 % (42.0-54.0); Hemoglobin 7.7 g/dL (14.0-18.0); Immature Granulocytes Abs Auto 0.07 10^3/uL (0.00-0.03); Immature Granulocytes Pct Auto 0.5 % (0.0-0.5); Lymphocytes Absolute Auto 1.8 10^3/uL (1.2-3.8); Lymphocytes Percent Auto 13.1 % (20.5-60.0); Mean Corpuscular HGB Conc 29.4 g/dL (29.9-35.2); Mean Corpuscular Hemoglobin 24.9 pg (25.9-34.0); Mean Corpuscular Volume 84.8 fL (80.0-94.0); Mean Platelet Volume 8.7 fL (9.5-13.5); Monocytes Absolute Auto 1.1 10^3/uL (0.3-0.8); Neutrophils Absolute Auto 9.8 10^3/uL (1.4-6.5); Neutrophils Percent Auto 73.5 % (43.0-75.0); Platelet Count 301 10^3/uL (150-450); Red Blood Count 3.09 10^6/uL (4.70-6.10); Red Cell Distribution Width 14.9 % (11.0-15.0); White Blood Count 13.3 10^3/uL (4.0-11.0)
[2023-05-18 12:31] LABS: Erythrocyte Sedimentation Rate 73 mm/hr (<=20)
[2023-05-18 12:51] LABS: Anion Gap 14.8; BUN Creatinine Ratio 24.2; C Reactive Protein 11.02 mg/dL (<=0.50); Calcium 9.1 mg/dL (8.5-10.1); Carbon Dioxide 21.7 mmol/L (21.0-32.0); Chloride 109 mmol/L (98-107); Estimated GFR (African America 46 (>=60); Estimated GFR (Non-African Ame 38 (>=60); Glucose 132 mg/dL (74-106); Potassium 5.5 mmol/L (3.5-5.1); Sodium 140 mmol/L (136-145)
== END 2023-05-18 10:12 | disposition home or self-care (01) ==
LOC: LAB 10:13
PROVIDERS: PCP Family Medicine; Visit Provider Internal Medicine Hematology & Oncology
DX: D72.829 Elevated white blood cell count, unspecified (principal); D50.9 Iron deficiency anemia, unspecified
CPT/HCPCS: 36415; 80048; 85025; 85652; 86140

== ENCOUNTER 2023-05-25 07:26 | Outpatient (RCR) | payer BC, MEDICARE, SELFPAY | END 2023-05-27 23:59 | disposition home or self-care (01) | LOC: INF 07:26 | PROVIDERS: PCP Family Medicine; Visit Provider Internal Medicine Hematology & Oncology | DX: D72.829 Elevated white blood cell count, unspecified (principal); D64.9 Anemia, unspecified; D50.9 Iron deficiency anemia, unspecified | CPT/HCPCS: G0463 ==

== ENCOUNTER 2023-06-22 16:04 | Outpatient (OUT) | payer BC, MEDICARE, SELFPAY | END 2023-06-22 16:05 | disposition home or self-care (01) | LOC: WC 16:04 | PROVIDERS: PCP Family Medicine; Visit Provider Podiatrist Foot & Ankle Surgery | DX: E11.621 Type 2 diabetes mellitus with foot ulcer (principal); 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 with other specified severity; L97.528 Non-pressure chronic ulcer of other part of left foot with other specified severity; L97.418 Non-pressure chronic ulcer of right heel and midfoot with other specified severity; E11.622 Type 2 diabetes mellitus with other skin ulcer; L97.818 Non-pressure chronic ulcer of other part of right lower leg with other specified severity; L97.318 Non-pressure chronic ulcer of right ankle with other specified severity | CPT/HCPCS: 11043; G0463 ==

== ENCOUNTER 2023-06-24 10:34 | Outpatient (OUT) | payer BC, MEDICARE, SELFPAY ==
[2023-06-24 11:09] LABS: Basophils Percent Auto 0.2 % (0.2-2.0); Eosinophils Absolute Auto 0.4 10^3/uL (0.0-0.7); Eosinophils Percent Auto 2.6 % (0.9-7.0); Hematocrit 24.7 % (42.0-54.0); Hemoglobin 7.3 g/dL (14.0-18.0); Immature Granulocytes Abs Auto 0.06 10^3/uL (0.00-0.03); Immature Granulocytes Pct Auto 0.4 % (0.0-0.5); Lymphocytes Absolute Auto 1.1 10^3/uL (1.2-3.8); Lymphocytes Percent Auto 7.4 % (20.5-60.0); Mean Corpuscular HGB Conc 29.6 g/dL (29.9-35.2); Mean Corpuscular Hemoglobin 25.1 pg (25.9-34.0); Mean Corpuscular Volume 84.9 fL (80.0-94.0); Mean Platelet Volume 8.7 fL (9.5-13.5); Monocytes Absolute Auto 1.1 10^3/uL (0.3-0.8); Monocytes Percent Auto 7.3 % (1.7-12.0); Neutrophils Absolute Auto 11.9 10^3/uL (1.4-6.5); Neutrophils Percent Auto 82.1 % (43.0-75.0); Platelet Count 402 10^3/uL (150-450); Red Blood Count 2.91 10^6/uL (4.70-6.10); Red Cell Distribution Width 14.9 % (11.0-15.0); White Blood Count 14.5 10^3/uL (4.0-11.0)
[2023-06-24 11:26] LABS: Erythrocyte Sedimentation Rate 103 mm/hr (<=20)
[2023-06-24 11:37] LABS: Anion Gap 14.6; BUN Creatinine Ratio 19.6; C Reactive Protein 14.25 mg/dL (<=0.50); Calcium 8.7 mg/dL (8.5-10.1); Carbon Dioxide 20.9 mmol/L (21.0-32.0); Chloride 104 mmol/L (98-107); Estimated GFR (African America 43 (>=60); Estimated GFR (Non-African Ame 35 (>=60); Glucose 230 mg/dL (74-106); Potassium 4.5 mmol/L (3.5-5.1); Sodium 135 mmol/L (136-145)
== END 2023-06-24 10:35 | disposition home or self-care (01) ==
LOC: LAB 10:36
PROVIDERS: PCP Family Medicine; Visit Provider Podiatrist Foot & Ankle Surgery
DX: M86.9 Osteomyelitis, unspecified (principal)
CPT/HCPCS: 36415; 80048; 85025; 85652; 86140

== ENCOUNTER 2023-06-30 13:15 | Outpatient (OUT) | payer BC, MEDICARE, SELFPAY ==
--- NOTE | 2023-06-30 14:13 | P.GSHP_ITS ---
History of Present Illness History of Present Illness Chief complaint: bilateral pressure ulcer Narrative: Patient presents for preadmission testing. Please see HPI from Dr. Bahena dated 06/22/2023. Review of Systems ROS Narrative Please see ROS from Dr. Bahena dated 06/22/2023. [facility] Medical History (Updated 06/30/23 @ 14:14 by Jonelle Cifuentes NP) Pressure ulcer of both heels ?L89.619 - Pressure ulcer of right heel, unspecified stage (ICD-10) ?L89.629 - Pressure ulcer of left heel, unspecified stage (ICD-10) History of blood transfusion ?Z92.89 - Personal history of other medical treatment (ICD-10) Sacral decubitus ulcer ?L89.159 - Pressure ulcer of sacral region, unspecified stage (ICD-10) Cellulitis ?L03.90 - Cellulitis, unspecified (ICD-10) Anemia ?D64.9 - Anemia, unspecified (ICD-10) Iron deficiency anemia ?D50.9 - Iron deficiency anemia, unspecified (ICD-10) Neurogenic bladder ?N31.9 - Neuromuscular dysfunction of bladder, unspecified (ICD-10) Disc degeneration, lumbosacral ?M51.37 - Other intervertebral disc degeneration, lumbosacral region (ICD-10) Diabetes 1.5, managed as type 2 ?E13.9 - Other specified diabetes mellitus without complications (ICD-10) HTN (hypertension) ?I10 - Essential (primary) hypertension (ICD-10) Cauda equina spinal cord injury ?S34.3XXA - Injury of cauda equina, initial encounter (ICD-10) Paraplegic spinal paralysis ?G82.20 - Paraplegia, unspecified (ICD-10) Surgical History (Updated 01/06/23 @ 10:06 by Kirti Owen) Miya filter in place ?Z95.828 - Presence of other vascular implants and grafts (ICD-10) History of urethrotomy ?Z98.890 - Other specified postprocedural states (ICD-10) History of cystoscopy ?Z98.890 - Other specified postprocedural states (ICD-10) History of back surgery ?Z98.890 - Other specified postprocedural states (ICD-10) History of appendectomy ?Z90.49 - Acquired absence of other specified parts of digestive tract (ICD- 10) Family History (Updated 11/25/22 @ 14:36 by Kylie Crockett) Mother Family history of hypertension Social History (Updated 01/11/23 @ 07:48 by Kirti Bertrand) Within the past year, how often did you have a drink containing alcohol: never Within the past year, how often did you have six or more drinks on one occasion: never Score interpretation: A score less than 4 is consistent with normal alcohol consumption. Smoking status: Never smoker Non-prescribed substance use: denies use Previous occupational history: retired Highest level of school completed/degree received: high school graduate Are you now , , , , never or living with a partner: In a typical week, how many times do you talk on the telephone with family, friends, or neighbors: 3 or more times per week How often do you get together with friends or relatives: twice per week How often do you attend zoroastrianism or yarsani services: never Do you belong to any clubs or organizations such as zoroastrianism groups unions, [employer] or athletic groups, or school groups: no Total score: 2 Score interpretation: A score of greater than or equal to 2 indicates the lowest level of social isolation. Little interest or pleasure in doing things: not at all Feeling down, depressed, or hopeless: not at all Feel stressed/tense/nervous/anxious/difficulty sleeping: not at all Do you think of yourself as: straight/heterosexual Gender Identity: male Meds Home Medications and Allergies Home Medications ?Medication ?Instructions ?Recorded ?Confirmed ?Type amlodipine 10 mg tablet 10 mg PO DAILY 10/06/22 06/30/23 History atenolol 100 mg tablet 100 mg PO DAILY 10/06/22 06/30/23 History citalopram 40 mg tablet 40 mg PO DAILY 10/06/22 06/30/23 History glipizide 10 mg tablet 10 mg PO DAILY 10/06/22 06/30/23 History lisinopril 20 mg tablet 20 mg PO DAILY 10/06/22 06/30/23 History oxybutynin chloride 15 mg 15 mg PO DAILY 10/06/22 06/30/23 History tablet,extended release 24 hr sitagliptin phosphate 100 mg 100 mg PO DAILY 10/06/22 06/30/23 History tablet (Januvia) atorvastatin 40 mg tablet 40 mg PO DAILY 06/30/23 06/30/23 History sulfamethoxazole 800 1 tab PO Q8H 06/30/23 06/30/23 History mg-trimethoprim 160 mg tablet Allergies Allergy/AdvReac Type Severity Reaction Status Date / Time vancomycin Allergy renal Verified 06/30/23 13:44 failure omadacycline AdvReac Unknown Unknown Verified 06/30/23 13:44 Exam Narrative Exam Narrative: Constitutional: Awake, alert, comfortable, well-appearing, nontoxic, interactive, vital signs as charted, Skin color pale, Patient is paraplegic, resting comfortably in wheelchair and able to wheel himself with his arms Head: Normocephalic, atraumatic Neck: Supple, normal appearance, normal range of motion, no meningeal signs, no lymphadenopathy Respiratory: No respiratory distress, breath sounds clear Cardiovascular: Regular rate and rhythm, strong and regular heart tones Psychiatric: Oriented ?3, normal affect Assessment and Plan Assessment and Plan (1) Pressure ulcer of both heels: Plan Wound debridement and application of skin substitute to bilateral lower leg wounds, incision of bone, possible wound VAC application scheduled with Dr. Bahena 07/08/2023.
== END 2023-06-30 13:16 | disposition home or self-care (01) ==
LOC: PST 13:15
PROVIDERS: PCP Family Medicine; Visit Provider Podiatrist Foot & Ankle Surgery
DX: Z01.818 Encounter for other preprocedural examination (principal); L89.619 Pressure ulcer of right heel, unspecified stage; L89.629 Pressure ulcer of left heel, unspecified stage
CPT/HCPCS: 80048; G0463

== ENCOUNTER 2023-07-08 10:10 | Day surgery (SDC) | payer BC, MEDICARE, SELFPAY ==
[2023-06-30 14:04] VITALS: BP 128/63; PULSE 71; TEMP 36.2; O2SAT 96; BMI 35.1
[2023-07-08] VITALS (11 sets, daily range): BP systolic 102–152; BP diastolic 52–73; PULSE 69–78; TEMP 36.4–36.5; O2SAT 94–99; BMI 33.5
[2023-07-08 10:28] LABS: Basophils Percent Auto 0.3 % (0.2-2.0); Eosinophils Absolute Auto 0.4 10^3/uL (0.0-0.7); Eosinophils Percent Auto 2.9 % (0.9-7.0); Hematocrit 28.6 % (42.0-54.0); Hemoglobin 8.2 g/dL (14.0-18.0); Immature Granulocytes Abs Auto 0.06 10^3/uL (0.00-0.03); Immature Granulocytes Pct Auto 0.5 % (0.0-0.5); Lymphocytes Absolute Auto 1.5 10^3/uL (1.2-3.8); Lymphocytes Percent Auto 11.6 % (20.5-60.0); Mean Corpuscular HGB Conc 28.7 g/dL (29.9-35.2); Mean Corpuscular Hemoglobin 24.7 pg (25.9-34.0); Mean Corpuscular Volume 86.1 fL (80.0-94.0); Mean Platelet Volume 8.7 fL (9.5-13.5); Monocytes Absolute Auto 0.8 10^3/uL (0.3-0.8); Monocytes Percent Auto 6.3 % (1.7-12.0); Neutrophils Percent Auto 78.4 % (43.0-75.0); Platelet Count 358 10^3/uL (150-450); Red Blood Count 3.32 10^6/uL (4.70-6.10); Red Cell Distribution Width 14.7 % (11.0-15.0); White Blood Count 12.7 10^3/uL (4.0-11.0)
[2023-07-08 10:35] LABS: Anion Gap 15.4; BUN Creatinine Ratio 16.8; Calcium 9.7 mg/dL (8.5-10.1); Chloride 107 mmol/L (98-107); Estimated GFR (African America 35 (>=60); Estimated GFR (Non-African Ame 29 (>=60); Glucose 90 mg/dL (74-106); Potassium 5.4 mmol/L (3.5-5.1); Sodium 136 mmol/L (136-145)
[2023-07-08 10:40] LABS: Glucometer 103 mg/dL (74-106)
--- NOTE | 2023-07-08 11:02 | PC.NURSE ---
patient hasa sacral wound covered in a dressing and bilateral food wunds which will be tended to during this surgical procedure.
[2023-07-08] MEDS: LACTATED RINGER'S SOLUTION 1,000 ML 50 ML IV (13:01)
[2023-07-08] MEDS: CEFAZOLIN SODIUM/DEXTROSE,ISO 2 GM/50 ML PIGGYBACK IV (13:02)
[2023-07-08] MEDS: GENTAMICIN SULFATE 1 GM POWDER TOPICAL (14:51)
[2023-07-08] MEDS: MICROFIBRILLAR COLLAGEN 1 GM POWDER 2 GM TOPICAL (14:58)
--- NOTE | 2023-07-08 15:13 | P.ORON_ITS ---
Brief Operative Note Date of procedure: 07/08/23 Pre-op diagnosis general: bilateral ankle/heel ulcer, left plantar foot ulcer, chronic osteomyelitis left ankle Post-op diagnosis: other (bilateral ankle/heel ulcer, left plantar foot ulcer, chronic osteomyelitis left ankle; type 2 diabetes with peripheral neuropathy & foot ulcer; venous stasis/varicose veins with chronic edema) Procedure: PROCEDURE PERFORMED: 1. Incision bone LEFT ankle 2. Application of allogenic skin substitute LEFT ankle, heel & foot ulcers: 61.2 cm2 in total 3. Excisional debridement RIGHT ankle & heel ulcers down to and including fat and fascia: 117.75 cm2 in total debrideded INDICATION FOR PROCEDURE: patient is a 63-year-old paraplegic male with multiple comorbidities including type 2 diabetes with peripheral neuropathy and multiple bilateral lower extremity ulcerations present for over one year. He had been undergoing local wound treatment at an outside wound center and did undergo multiple debridements and local wound modalities. He had an MRI on 05/18/23 which was concerning for osteomyelitis of the left lateral ankle with involvement of the fibula. A bone biopsy subsequently was obtained and was reportedly negative for acute osteomyelitis however given his lack of progress patient wished for 2nd opinion and presented to our wound center on 06/22/23. A long discussion regarding the risks and benefits of continued conservative wound care versus surgical debridement and skin grafting versus major amputation. After discussion with he and his he wished to pursue limb salvage with surgical debridement/skin grafting and the above procedures. I explained that he remains at high risk for major amputation and infection and that his bilateral lower extremity wounds are currently limb threatening and could become life threatening. All questions were answered to satisfaction INTRAOPERATIVE FINDINGS: there is no acute signs of infection however there was exposed bone on the left lateral ankle which involved the fibula and talus. The other two wounds on the left lower extremity ( medial forefoot and heel) were deep to fascia but no bone was exposed. Right lower extremity wounds although large in length and width were relatively superficial involving skin skin structures and superficial fascia. bilateral equal and symmetric +2 pitting edema. Preoperative wound measurements: RIGHT Medial Ankle: 12.1 x 4.5 x 0.1 cm Lateral Ankle: 2.2 x 1.5 x 0.1 cm Heel: 7.6 x 5.3 x 0.1 cm LEFT Lateral ankle: 2.8 x 3.5 x 2.3 cm (bone exposed) Heel: 11.5 x 7.0 x 0.3 cm Medial forefoot: 2.3 x 1.8 x 0.3 cm PROCEDURE IN DETAIL: Patient was identified in pre op and consent was reviewed. Correct side and site were identified and marked. Pre-op antibiotics were started. Patient was brought to OR suite and place on table in a supine position. General anesthesia was administered. Operative extremity was prepped and draped in usual sterile fashion. Formal time-out was performed. with attention to the left lower extremity wound on the lateral ankle was sharply excised down to and including bone of the fibula. Debridement with curettes and rongeurs of all nonviable tissue was performed in an excisional manner which revealed exposure of the talus. Versa jet was further used to ensure all nonviable soft tissue had been excised. Bone exposed over the lateral ankle was then aggressively curetted. Bone was soft but was white in color and there is no purulence or evidence of acute infection. The other two wounds on the left lower extremity ( medial forefoot and heel) were also excisionally debrided down to and including deep fascia which would be to the level of tendon however no visible tendon was noted. Excisional debridement was performed with a scalpel/forceps as well as versa jet and was performed to one hundred percent healthy bleeding granular wound beds. wounds were irrigated with copious amounts of sterile saline and a clean rongeur was used to obtain bone specimen from the fibula as well as talus. Hemostasis was controlled on the field. 1 g of gentamicin powder was placed on the wound bed of the lateral ankle. Then the allogenic skin substitute was placed over the lateral ankle wound and held in place by octavia. Additional allogenic skin substitute was also placed on the medial forefoot and heel ulcerations and held in place with octavia. multiple layers of Adaptic and a bulky dry sterile dressing was then applied over the wounds. with attention to the right lower extremity all wounds were without signs of infection and were relatively superficial compared to the contralateral extremity all of which involved superficial fascia and subcutaneous fat. Wounds were excisionally debrided sharply with scalpel/forceps as well as a versa jet. Excisional debridement was performed to one hundred percent healthy bleedin g/granular wound bed. Wounds were irrigated with copious saline and hemostasis was controlled on the field. Xeroform was then placed over the wound beds followed by a bulky dry sterile dressing. Then a multilayer compression wrap consisting of multiple layers of cast padding was placed from the forefoot to the popliteal fossa. Then a layer Benton wraps were applied in a similar manner with slight compression. An additional layer of cast padding followed by an additional layer of benton wraps were then applied. This multilayer compression wrap was placed on bilateral lower extremities POSTOPERATIVE PLAN: Discharge home under family's care Post op instructions provided verbally and written Keep dressing clean, dry and intact unless otherwise directed; reinforce if needed prescription(s) were placed in chart wound VAC will be ordered through the wound center will be applied as an outpatient Follow-up within 1 week Implants: Theragenesis allogenic skin substitute: 61.2 cm2 in total 4x3 cm meshed (x1) 8.2x6 cm nonmeshed (x1) Surgeon: Bubba Bahena [employer] Operator: Raghavendra Emmanuel Estimated blood loss (mL): 75 Pathology: other (bone from left ankle) Condition: stable Disposition: PACU
[2023-07-08 15:50] LABS: Glucometer 107 mg/dL (74-106)
--- NOTE | 2023-07-08 16:38 | PC.NURSE ---
bilat feet remain pink and warm
== END 2023-07-08 16:50 | disposition home or self-care (01) ==
PROVIDERS: PCP Family Medicine; Visit Provider Podiatrist Foot & Ankle Surgery
PROC: (CPT 400; principal; 2023-07-08 10:55)
DX: E11.621 Type 2 diabetes mellitus with foot ulcer (principal); E11.69 Type 2 diabetes mellitus with other specified complication; M86.172 Other acute osteomyelitis, left ankle and foot; E11.42 Type 2 diabetes mellitus with diabetic polyneuropathy; I10 Essential (primary) hypertension; 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 with other specified severity; L97.528 Non-pressure chronic ulcer of other part of left foot with other specified severity; G47.33 Obstructive sleep apnea (adult) (pediatric); G82.20 Paraplegia, unspecified; Z79.84 Long term (current) use of oral hypoglycemic drugs; Z79.899 Other long term (current) drug therapy; Z99.3 Dependence on wheelchair; F32.A Depression, unspecified; K21.9 Gastro-esophageal reflux disease without esophagitis; E78.5 Hyperlipidemia, unspecified; L97.418 Non-pressure chronic ulcer of right heel and midfoot with other specified severity; L97.818 Non-pressure chronic ulcer of other part of right lower leg with other specified severity; E11.622 Type 2 diabetes mellitus with other skin ulcer; L97.318 Non-pressure chronic ulcer of right ankle with other specified severity
CPT/HCPCS: 15002; 15004; 15271; 15275; 15276; 27607; 36415; 80048; 82948; 85025; 87070; 87076; 87102; 87116; 87205; 87206; 88305; 88311; 99999; A2008; J1094; J2704

== ENCOUNTER 2023-07-13 13:21 | Outpatient (OUT) | payer BC, MEDICARE, SELFPAY | END 2023-07-13 13:22 | disposition home or self-care (01) | LOC: WC 13:21 | PROVIDERS: PCP Family Medicine; Visit Provider Podiatrist Foot & Ankle Surgery | DX: E11.621 Type 2 diabetes mellitus with foot ulcer (principal); 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 with other specified severity; L97.528 Non-pressure chronic ulcer of other part of left foot with other specified severity; E11.622 Type 2 diabetes mellitus with other skin ulcer; L97.818 Non-pressure chronic ulcer of other part of right lower leg with other specified severity; L97.318 Non-pressure chronic ulcer of right ankle with other specified severity; L97.412 Non-pressure chronic ulcer of right heel and midfoot with fat layer exposed | CPT/HCPCS: 97605 ==

== ENCOUNTER 2023-07-19 14:48 | Outpatient (OUT) | payer BC, MEDICARE, SELFPAY | END 2023-07-19 14:49 | disposition home or self-care (01) | LOC: WC 14:48 | PROVIDERS: PCP Family Medicine; Visit Provider Podiatrist Foot & Ankle Surgery | DX: E11.621 Type 2 diabetes mellitus with foot ulcer (principal); 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 with other specified severity; L97.528 Non-pressure chronic ulcer of other part of left foot with other specified severity | CPT/HCPCS: 97605 ==

== ENCOUNTER 2023-07-22 10:30 | Outpatient (OUT) | payer BC, MEDICARE, SELFPAY ==
[2023-07-22 11:35] LABS: Anion Gap 12.4; C Reactive Protein 7.65 mg/dL (<=0.50); Calcium 8.8 mg/dL (8.5-10.1); Carbon Dioxide 24.7 mmol/L (21.0-32.0); Chloride 106 mmol/L (98-107); Estimated GFR (African America 41 (>=60); Estimated GFR (Non-African Ame 34 (>=60); Glucose 227 mg/dL (74-106); Potassium 5.1 mmol/L (3.5-5.1); Sodium 138 mmol/L (136-145)
[2023-07-22 13:44] LABS: Basophils Percent Auto 0.2 % (0.2-2.0); Eosinophils Absolute Auto 0.5 10^3/uL (0.0-0.7); Eosinophils Percent Auto 4.3 % (0.9-7.0); Immature Granulocytes Abs Auto 0.07 10^3/uL (0.00-0.03); Immature Granulocytes Pct Auto 0.6 % (0.0-0.5); Lymphocytes Percent Auto 15.8 % (20.5-60.0); Mean Corpuscular HGB Conc 29.4 g/dL (29.9-35.2); Mean Corpuscular Hemoglobin 25.2 pg (25.9-34.0); Mean Corpuscular Volume 85.6 fL (80.0-94.0); Mean Platelet Volume 9.6 fL (9.5-13.5); Monocytes Percent Auto 7.6 % (1.7-12.0); Neutrophils Absolute Auto 8.9 10^3/uL (1.4-6.5); Neutrophils Percent Auto 71.5 % (43.0-75.0); Platelet Count 373 10^3/uL (150-450); Red Cell Distribution Width 14.7 % (11.0-15.0); White Blood Count 12.5 10^3/uL (4.0-11.0)
[2023-07-22 15:05] LABS: Hemoglobin 6.8 g/dL (14.0-18.0)
[2023-07-22 15:06] LABS: Hematocrit 23.1 % (42.0-54.0)
[2023-07-22 15:59] LABS: Erythrocyte Sedimentation Rate 104 mm/hr (<=20)
== END 2023-07-22 10:31 | disposition home or self-care (01) ==
PROVIDERS: PCP Family Medicine; Visit Provider Internal Medicine Hematology & Oncology
DX: D72.829 Elevated white blood cell count, unspecified (principal); D64.9 Anemia, unspecified; D50.9 Iron deficiency anemia, unspecified
CPT/HCPCS: 36415; 80048; 85025; 85652; 86140

== ENCOUNTER 2023-07-27 07:33 | Outpatient (RCR) | payer BC, MEDICARE, SELFPAY ==
[2023-06-29 13:49] LABS: Hematocrit 24.2 % (42.0-54.0); Hemoglobin 7.3 g/dL (14.0-18.0)
[2023-06-30 10:09] VITALS: BP 161/65; PULSE 69; TEMP 36.5; O2SAT 98
[2023-06-30] MEDS: DIPHENHYDRAMINE HCL 25 MG CAPSULE PO (10:12)
[2023-06-30] MEDS: 0.9 % SODIUM CHLORIDE 250 ML 10 ML IV (10:12)
[2023-06-30] MEDS: ACETAMINOPHEN 325 MG TABLET 650 MG PO (10:12)
[2023-06-30 10:30] VITALS: PULSE 63; TEMP 36.5; O2SAT 97
[2023-06-30 10:34] VITALS: BP 161/65; PULSE 69; TEMP 36.5; O2SAT 98
[2023-06-30 11:15] VITALS: BP 162/70; PULSE 59; TEMP 36.6; O2SAT 98
--- NOTE | 2023-06-30 11:32 | PC.NURSE ---
0953 Pt. to [facility] via w/c for blood transfusion. Requests to remain in w/c. VSS. #22 gauge IV initiated to left ac on first attempt. Flushes easily without edema. Pt. tolerated with min. c/o. Pre-transfusion meds administered. 1014: 1 unit PRBC initiated at this time. Given water. Denies wanting food. 1030: VSS. Denies needs or c/o. 1115: Pt. without c/o. VSS. IV site clear.
[2023-06-30 12:00] VITALS: BP 149/72; PULSE 59; TEMP 36.6; O2SAT 97
--- NOTE | 2023-06-30 12:01 | PC.NURSE ---
1140: Blood transfusion completed at this time. VSS. IV d/c'd, pressure to site. Pt. without s&s of transfusion reaction. 1144: Pt. d/c'd via w/c to home.
[2023-07-27 14:25] LABS: Basophils Percent Auto 0.3 % (0.2-2.0); Eosinophils Absolute Auto 0.5 10^3/uL (0.0-0.7); Eosinophils Percent Auto 4.3 % (0.9-7.0); Hemoglobin 7.1 g/dL (14.0-18.0); Immature Granulocytes Abs Auto 0.05 10^3/uL (0.00-0.03); Immature Granulocytes Pct Auto 0.4 % (0.0-0.5); Lymphocytes Absolute Auto 1.9 10^3/uL (1.2-3.8); Lymphocytes Percent Auto 15.8 % (20.5-60.0); Mean Corpuscular Hemoglobin 24.8 pg (25.9-34.0); Mean Corpuscular Volume 82.9 fL (80.0-94.0); Monocytes Absolute Auto 0.9 10^3/uL (0.3-0.8); Monocytes Percent Auto 7.4 % (1.7-12.0); Neutrophils Absolute Auto 8.6 10^3/uL (1.4-6.5); Neutrophils Percent Auto 71.8 % (43.0-75.0); Platelet Count 326 10^3/uL (150-450); Red Blood Count 2.86 10^6/uL (4.70-6.10); Red Cell Distribution Width 14.6 % (11.0-15.0)
[2023-07-27 14:28] LABS: Hematocrit 23.7 % (42.0-54.0)
== END 2023-07-27 23:59 | disposition home or self-care (01) ==
LOC: INF 07:33
PROVIDERS: PCP Family Medicine; Visit Provider Internal Medicine Hematology & Oncology
DX: Z01.818 Encounter for other preprocedural examination (principal); L89.619 Pressure ulcer of right heel, unspecified stage; L89.629 Pressure ulcer of left heel, unspecified stage; D72.829 Elevated white blood cell count, unspecified; D64.9 Anemia, unspecified; D50.9 Iron deficiency anemia, unspecified
CPT/HCPCS: 36415; 36430; 85014; 85018; 85025; 86850; 86900; 86901; G0463; P9016

== ENCOUNTER 2023-07-30 07:26 | Outpatient (RCR) | payer BC, MEDICARE, SELFPAY ==
[2023-07-30 11:22] VITALS: BP 137/73; PULSE 78; TEMP 36.4; O2SAT 98
[2023-07-30 11:42] VITALS: BP 133/73; PULSE 78; TEMP 36.4; O2SAT 98
[2023-07-30 11:57] VITALS: BP 133/73; PULSE 79; TEMP 36.4; O2SAT 98
[2023-07-30 11:58] VITALS: BP 133/73
--- NOTE | 2023-07-30 12:13 | PC.NURSE ---
1142 1st unit prbc initiated, instructed on s/s of reaction. verbalize understanding
--- NOTE | 2023-07-30 12:18 | PC.NURSE ---
1200 rate increased to 240 ml hr.
--- NOTE | 2023-07-30 12:32 | PC.NURSE ---
1230 Eating lunch, tolerating transfusion well.
== END 2023-07-30 15:15 | disposition home or self-care (01) ==
LOC: INF 07:26
PROVIDERS: PCP Family Medicine; Visit Provider Internal Medicine Hematology & Oncology
DX: D72.829 Elevated white blood cell count, unspecified (principal)
CPT/HCPCS: 36430; P9016

== ENCOUNTER 2023-07-30 12:07 | Outpatient (OUT) | payer BC, MEDICARE, SELFPAY | END 2023-07-30 12:08 | disposition home or self-care (01) | LOC: WC 12:07 | PROVIDERS: PCP Family Medicine; Visit Provider Podiatrist Foot & Ankle Surgery | DX: E11.621 Type 2 diabetes mellitus with foot ulcer (principal); L97.412 Non-pressure chronic ulcer of right heel and midfoot with fat layer exposed; 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 with other specified severity; D72.829 Elevated white blood cell count, unspecified; E11.622 Type 2 diabetes mellitus with other skin ulcer; L97.818 Non-pressure chronic ulcer of other part of right lower leg with other specified severity; L97.528 Non-pressure chronic ulcer of other part of left foot with other specified severity; L97.318 Non-pressure chronic ulcer of right ankle with other specified severity | CPT/HCPCS: 11042; 11045; 36430; 97605; P9016 ==

== ENCOUNTER 2023-08-17 15:37 | Outpatient (OUT) | payer BC, MEDICARE, SELFPAY | END 2023-08-17 15:38 | disposition home or self-care (01) | LOC: WC 15:37 | PROVIDERS: PCP Family Medicine; Visit Provider Podiatrist Foot & Ankle Surgery | DX: E11.621 Type 2 diabetes mellitus with foot ulcer (principal); 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 with other specified severity; L97.528 Non-pressure chronic ulcer of other part of left foot with other specified severity; E11.622 Type 2 diabetes mellitus with other skin ulcer; L97.818 Non-pressure chronic ulcer of other part of right lower leg with other specified severity; L97.318 Non-pressure chronic ulcer of right ankle with other specified severity; L97.412 Non-pressure chronic ulcer of right heel and midfoot with fat layer exposed | CPT/HCPCS: 11042; 11045; 97605 ==

== ENCOUNTER 2023-08-31 07:30 | Outpatient (RCR) | payer BC, MEDICARE, SELFPAY ==
[2023-08-31 14:05] LABS: Basophils Percent Auto 0.2 % (0.2-2.0); Eosinophils Absolute Auto 0.5 10^3/uL (0.0-0.7); Eosinophils Percent Auto 3.5 % (0.9-7.0); Hemoglobin 7.1 g/dL (14.0-18.0); Immature Granulocytes Abs Auto 0.06 10^3/uL (0.00-0.03); Immature Granulocytes Pct Auto 0.5 % (0.0-0.5); Lymphocytes Absolute Auto 1.8 10^3/uL (1.2-3.8); Lymphocytes Percent Auto 13.9 % (20.5-60.0); Mean Corpuscular Volume 83.5 fL (80.0-94.0); Mean Platelet Volume 8.7 fL (9.5-13.5); Monocytes Absolute Auto 0.8 10^3/uL (0.3-0.8); Monocytes Percent Auto 6.3 % (1.7-12.0); Neutrophils Absolute Auto 9.8 10^3/uL (1.4-6.5); Neutrophils Percent Auto 75.6 % (43.0-75.0); Platelet Count 324 10^3/uL (150-450); Red Blood Count 2.84 10^6/uL (4.70-6.10); Red Cell Distribution Width 14.6 % (11.0-15.0)
[2023-08-31 14:07] LABS: Hematocrit 23.7 % (42.0-54.0)
[2023-08-31 14:43] LABS: Erythrocyte Sedimentation Rate 90 mm/hr (<=20)
[2023-08-31 14:58] LABS: Anion Gap 13.4; BUN Creatinine Ratio 17.3; Calcium 8.5 mg/dL (8.5-10.1); Carbon Dioxide 25.7 mmol/L (21.0-32.0); Chloride 106 mmol/L (98-107); Estimated GFR (African America 53 (>=60); Estimated GFR (Non-African Ame 43 (>=60); Glucose 149 mg/dL (74-106); Potassium 4.1 mmol/L (3.5-5.1); Sodium 141 mmol/L (136-145)
[2023-08-31 16:01] LABS: Percent Iron Saturation 9.4 %
== END 2023-08-31 15:24 | disposition home or self-care (01) ==
LOC: INF 07:30
PROVIDERS: PCP Family Medicine; Visit Provider Internal Medicine Hematology & Oncology
DX: D72.829 Elevated white blood cell count, unspecified (principal); D64.9 Anemia, unspecified; D50.9 Iron deficiency anemia, unspecified
CPT/HCPCS: 36415; 80048; 82728; 83540; 83550; 85025; 85652; G0463

== ENCOUNTER 2023-09-14 14:07 | Outpatient (OUT) | payer BC, MEDICARE, SELFPAY | END 2023-09-14 14:08 | disposition home or self-care (01) | LOC: WC 14:07 | PROVIDERS: PCP Family Medicine; Visit Provider Podiatrist Foot & Ankle Surgery | DX: E11.621 Type 2 diabetes mellitus with foot ulcer (principal); L97.412 Non-pressure chronic ulcer of right heel and midfoot with fat layer exposed; 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 with other specified severity; E11.622 Type 2 diabetes mellitus with other skin ulcer; L97.818 Non-pressure chronic ulcer of other part of right lower leg with other specified severity; L97.528 Non-pressure chronic ulcer of other part of left foot with other specified severity; L97.318 Non-pressure chronic ulcer of right ankle with other specified severity | CPT/HCPCS: 11042; 11045; 97605 ==

== ENCOUNTER 2023-09-29 12:11 | Outpatient (OUT) | payer BC, MEDICARE, SELFPAY ==
[2023-09-29 12:42] LABS: Basophils Percent Auto 0.2 % (0.2-2.0); Eosinophils Absolute Auto 0.4 10^3/uL (0.0-0.7); Hemoglobin 7.1 g/dL (14.0-18.0); Immature Granulocytes Abs Auto 0.07 10^3/uL (0.00-0.03); Immature Granulocytes Pct Auto 0.6 % (0.0-0.5); Lymphocytes Absolute Auto 1.8 10^3/uL (1.2-3.8); Lymphocytes Percent Auto 15.2 % (20.5-60.0); Mean Corpuscular HGB Conc 29.6 g/dL (29.9-35.2); Mean Corpuscular Volume 81.1 fL (80.0-94.0); Mean Platelet Volume 8.7 fL (9.5-13.5); Monocytes Absolute Auto 1.2 10^3/uL (0.3-0.8); Monocytes Percent Auto 10.1 % (1.7-12.0); Neutrophils Absolute Auto 8.6 10^3/uL (1.4-6.5); Neutrophils Percent Auto 70.9 % (43.0-75.0); Platelet Count 292 10^3/uL (150-450); Red Blood Count 2.96 10^6/uL (4.70-6.10); Red Cell Distribution Width 15.1 % (11.0-15.0); Reticulocyte Pct Auto 1.09 % (0.60-3.10); White Blood Count 12.1 10^3/uL (4.0-11.0)
[2023-09-29 13:43] LABS: Anion Gap 11.8; BUN Creatinine Ratio 15.3; Calcium 8.7 mg/dL (8.5-10.1); Carbon Dioxide 25.9 mmol/L (21.0-32.0); Chloride 104 mmol/L (98-107); Estimated GFR (African America 55 (>=60); Estimated GFR (Non-African Ame 45 (>=60); Glucose 93 mg/dL (74-106); Potassium 3.7 mmol/L (3.5-5.1); Sodium 138 mmol/L (136-145)
[2023-10-04 16:08] LABS: Erythropoietin (EPO), Serum 29.7 mIU/mL (2.6-18.5)
== END 2023-09-29 12:12 | disposition home or self-care (01) ==
LOC: LAB 12:13
PROVIDERS: PCP Family Medicine; Visit Provider Internal Medicine Hematology & Oncology
DX: D72.829 Elevated white blood cell count, unspecified (principal); D64.9 Anemia, unspecified; D50.9 Iron deficiency anemia, unspecified
CPT/HCPCS: 36415; 80048; 82668; 82728; 83540; 83550; 85025; 85045

== ENCOUNTER 2023-10-01 07:44 | Outpatient (OUT) | payer BC, MEDICARE, SELFPAY ==
--- OUTSIDE RECORDS SUMMARY | 2023-10-01 07:52 | XMS_ITS | CCD ---
Author Organization [facility] Care Team Providers Care Operating Room Assistant Name Role Phone WESTONMICHAELA Unavailable Unavailable NADERER, FIDEL LIEBERMAN Unavailable Unavailabl e AOUAD, THIAGO Sy Unavailable Unavailable BLOOD, GANGA Gutiérrez Unavailable Unavailable BRAMBILA, JAI Chowdhury Unavailable Unavailable AVERY, WILLIAM Unavailable Unavaila ble SHASHA, KHADAR Murphy [...] NADERER, DR FIDEL Tellez Primary Care Unavailable SIX MILE RUN, DR KHADAR Edwards Consulting Unavailable BRAR, DR CATHY Edwards Consulting Unavailable MD Fidel Abbott Primary Care Provider MD Cathy Brar Attending Provider Fidel Abbott MD Primary Care Provider MD Fidel Abbott Primary Care Provider MD Cathy Brar Attending Provider Fidel Abbott MD Primary Care Provider SHELLY MONDRAGON Referring Unavail able NADEREFIDEL Christie Primary Care UnavailASHLEE Juan Referring Unavailable NADERER, FIDEL LIEBERMAN Primary Care UnavailASHLEE Juan Referring Unavailable NADERERFIDEL Primary Care Unavailabl e ANGELES NAGY Referring Unavailable NADERER, FIDEL LUISANA Primary Care Unavailabl e ZACIKRISTYKI, ANGELES Attending Unavailable JEAN, ANGELES Admitting Unavailable NADERER, FIDEL WARWICK Primary Care Unavailabl e IACOB, MATIAS Admitting Unavailable IACOB, MATIAS Attending Unavailable MUDDADA, MARY K Consulting Unavailable KATYERER, FIDEL LUISANA Primary Care Unavailabl e ZACISTEVEN, ANGELES Consulting Unavailable BREMYYAKOV FITZPATRICK Consulting Unavailable CIARAROSIE NEIL Consulting Unavailable AHMADMICHELLE Consulting Unavailable MILLYKATERINA BOYD Consulting Unavailable KATYBAN[facility] CENTERPratik, FIDEL LUISANA Primary Care Unavailabl e ZADEMI, ANGELES Referring Unavailable NADEREPratik, FIDEL LUISANA Primary Care Unavailabl e ASHLEE ERWIN Referring Unavailable NADEREPratik, FIDEL Primary Care Physician Milena NAZARIO, Fidel Primary Care Provider Milena NAZARIO, Fidel Unavailable Milena NAZARIO, Fidel Primary Care Provider JONATHAN MOFFETT Attending Unavailable FIDEL ABBOTT Attending Unavailable JONATHAN MOFFETT Attending Unavailable JONATHAN MOFFETT Attending Unavailable JONATHAN MOFFETT Referring Unavailable JONATHAN MOFFETT Attending Unavailable JONATHAN MOFFETT Attending Unavailable JONATHAN MOFFETT Attending Unavailable JONATHAN MOFFETT Attending Unavailable JONATHAN MOFFETT Attending Unavailable JONATHAN MOFFETT Attending Unavailable JONATHAN MOFFETT Attending Unavailable MD Fidel Abbott Primary Care Provider MD Cathy Brar Attending Provider [phone] CRISTIANA Moffett Attending Provider CRISTIANA Bahena Attending Provider [phone] Cathy Brar Admitting Unavailable Cathy Brar Attending Unavailable Fidel Abbott Primary Care Unavailable Cathy Brar Attending Unavailable Fidel Abbott Primary Care Unavailable Cathy Brar Admitting Unavailable Tita Cullen Admitting Unavailable Jonathan Moffett Consulting Unavailable Suzy Douglas Attending Unavailable Fidel Abbott Primary Care Unavailable Moisés Morelos Consulting Unavailable Jesusita Navarro Consulting UnavailJonathan Cleaning Admitting Unavailable Jonathan Moffett Attending Unavailable Fidel Abbott Primary Care Unavailable Bubba Bahena Admitting Unavailable Bubba Bahena Attending Unavailable Parvin VILLA Attending Unavailable VILLA, Parvin Christie Attending Unavailable Parvin VILLA Referring Unavailable Parvin VILLA Attending Unavailable VILLA, Parvin Christie Attending Unavailable VILLAParvin Attending Unavailable Allergies Allergy Classification Reported Allergen(s) Allergy Type Date of Onset Reaction(s) Facility (5 sources) Vancomycin Drug Allergy 6 Shut kidneys down [facility] Repository (9 sources) Vancomycin Drug Allergy 6 Other, Unknown [facility] (6 sources) omadacycline; 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: [omadacycl] Drug allergy 3 Renal pain (finding) [facility] (3 sources) ferrous sulfate; 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: [ferrous sulfate] Drug Allergy 3 Itching [facility] (1 source) Vancomycin Drug Allergy 3 [facility] Repository Medications Current Medications Medication Drug Class(es) Dates Sig (Normalized) Sig (Original) Acetaminophen (1 source) Start: 06-22-2022 acetaminophen (TYLENOL) tablet 650 mg amLODIPine 10 mg oral tablet (20 sources) Dihydropyridine Calcium Channel [place] Start: 12-08-2016 take 10 mg by mouth once daily in the morning Amlodipine Active 10 MG PO Every morning December 08, 2016 12:00am Start: 12-07-2016 End: 12-08-2016 Amlodipine Discontinued Nov 12:00am December 08, 2016 2:50pm Start: 12-07-2016 End: 12-08-2016 Amlodipine Discontinued Nov 11:00pm December 08, 2016 1:50pm End: 06-26-2022 take 2 tablets by mouth once daily amlodipine (NORVASC) 5 MG tablet Take 10 mg by mouth daily 0 06/26/2022 Discontinued (Stop Taking at Discharge) atenolol 100 mg oral tablet (16 sources) beta-Adrenergic [place] Start: 06-23-2022 take 100 mg by mouth once daily 100 mg, Oral, DAILY, First dose on Wed06/23/22 at 0900, Until Discontinued Start: 11-03-2017 take 100 mg by mouth once rachel y Atenolol Active 100 MG PO Daily November 03, 2017 12:00am End: 06-26-2022 take 2 tablets by mouth once daily atenolol (TENORMIN) 50 MG tablet Take 100 mg by mouth daily. 0 06/26/2022 Discontinued (Stop Taking at Discharge) atorvastatin 40 mg oral tablet (6 sources) HMG-CoA Reductase Inhibitor Start: 04-06-2023 End: 04-05-2024 take 40 mg by mouth once daily Atorvastatin Active 40 MG PO Daily May 04, 2023 1:00am citalopram 40 mg oral tablet (16 sources) Serotonin Reuptake Inhibitor Start: 06-23-2022 take 40 mg by mouth once daily 40 mg, Oral, DAILY, First dose on Wed06/23/22 at 0900, Until Discontinued Start: 12-07-2016 take 1 tablet by mack th once daily Citalopram (Celexa) 40 mg Tablet Active 40 MG PO Daily December 07, 2016 12:00am End: 06-26-2022 take 2 tablets by mouth once daily citalopram (CELEXA) 20 MG tablet Take 40 mg by mouth daily 0 06/26/2022 Discontinued (Stop Taking at Discharge) clindamycin 300 mg oral capsule (8 sources) Lincosamide Antibacterial Start: 05-13-2023 End: 05-23-2023 [...] and Olga 25 each 3 06/26/2022 Active fenofibrate 145 mg oral tablet (16 sources) Peroxisome Proliferator Receptor alpha Agonist Start: 02-13-2023 take 145 mg by mouth once daily at bedtime Fenofibrate Nanocrystallized Active 145 MG PO Daily at bedtime 0 February 13, 2023 1:00am Start: 06-23-2022 take 160 mg by mouth once daily 160 mg, Oral, DAILY, First dose on Wed06/23/22 at 0900, Until Discontinued Substituted for Fenofibrate (Non-Formulary Dose). Start: 11-19-2020 End: 02-07-2023 take 145 mg by mouth once daily at bedtime Fenofibrate Nanocrystallized Discontinued 145 MG PO Daily at bedtime November 19, 2020 12:00am February 07, 2023 4:16pm Start: 12-07-2016 End: 11-19-2020 take 145 mg by mouth once daily at bedtime Fenofibrate Discontinued 145 MG PO Daily at bedtime December 07, 2016 12:00am November 19, 2020 11:09am Gauze Pads & Dressings (KERLIX GAUZE ROLL MEDIUM) MISC (3 sources) Start: 06-26-2022 Gauze Pads & Dressings (KERLIX GAUZE ROLL MEDIUM) MISC 2 each by Does not apply route daily 96 each 2 06/26/2022 Active glipiZIDE 10 mg oral tablet (14 sources) Sulfonylurea Start: 06-30-2018 take 10 mg by mouth twice daily Glipizide Active 10 MG PO Twice daily June 30, 2018 12:00am sodium hypochlorite 1.25 mg/ml topical spray (12 sources) Start: 06-26-2022 sodium hypochl orite (DAKINS) [...] 07, 2017 12:00am November 03, 2017 2:58pm 3 ml insulin lispro 100 unt/ml pen injector (2 sources) Insulin Analog Start: 05-19-2018 Insulin Lispro (Humalog Kwikpen Insulin) 100 unit/mL Insulin Pen Active 0 .ROUTE .COMPLEX May 19, 2018 1:00am SLIDING SCALE Iron (1 source) Start: 11-09-2022 IRON 65MG TAB IRON 65MG TAB Start Date: 11/09/22 Status: Ordered lisinopril 20 mg oral tablet (14 sources) Angiotensin Converting Enzyme Inhibitor Start: 11-09-2022 [...] tablet 4 mg 24 hr oxybutynin chloride 5 mg extended release oral tablet (18 sources) Cholinergic Muscarinic Antagonist Start: 02-13-2023 take 15 mg by mouth once daily Oxybutynin Chloride Active 15 MG PO Daily February 13, 2023 1:00am Start: 02-07-2023 take 15 mg by mouth once daily Oxybutynin Chloride Active 15 MG PO Daily February 07, 2023 1:00am Start: 11-09-2022 oxybutynin 15 mg ER Tab Refills(s) 0 Start Date: 11/09/22 Status: Ordered Start: 03-23-2019 End: 02-07-2023 take 10 mg by mouth once daily Oxybutynin Chloride Dis continued 10 MG PO Daily March 23, 2019 1:00am February 07, 2023 8:56am SITagliptin 100 mg oral tablet (7 sources) Dipeptidyl Peptidase 4 Inhibitor Start: 07-29-2021 take 1 tablet by mouth once daily Sitagliptin Phosphate (Januvia) 100 mg tablet Active 100 MG PO Daily July 29, 2021 12:00am 1000 ml sodium chloride 9 mg/ml injection (6 sources) Start: 06-22-2022 0.9 % sodium chloride infusion Start: 06-22-2022 IntraVENous, a t 5-250 [...] needed 10 mL, IntraVENous, PRN, Starting on Wed06/22/22 at 2018, Until Discontinued, Line Care, After every IV line use Start: 06-22-2022 End: 06-22-2022 0.9 % sodium chloride bolus Completed/Discontinued Medications Medication Drug Class(es) Dates Sig (Normalized) Sig (Original) acetaminophen 325 mg / HYDROcodone bitartrate 5 mg oral tablet (10 sources) Opioid Agonist Start: 09-04-2021 End: 02-06-2023 take 1 tablet by mouth every six hours Hydrocodone-Acetami nophen Discontinued 1 TAB PO Q6H 28 September 08, 2022 February 06, 2023 10:43pm Start: 11-15-2017 End: 11-22-2017 take 1 tablet by mouth every six hours Hydrocodone-Acetaminophen Discontinued 1 TAB PO Q6H 23 10November 15, 2017 November 22, 2017 12:01am amoxicillin 500 mg / clavulanate 125 mg oral tablet (10 sources) Penicillin-class Antibacterial Start: 12-01-2022 End: 02-07-2023 take 1 tablet by mouth every twelve hours Amoxicillin-Pot Clavulanate Discontinued 1 TAB PO Q12H December 01, 2022 12:00am February 07, 2023 4:16pm Start: 04-30-2020 End: 05-06-2020 take 1 tablet [...] 2017 12:01am betamethasone 0.001 mg/mg topical ointment (4 sources) Corticosteroid Start: 11-17-2018 End: 03-23-2019 Betamethasone Valerate Discontinued 1 APPLIC TOPICAL Daily 45 November 17, 2018 10:49am March 23, 2019 12:03pm use for 2 wks on and 1 wk off to affected area calcium gluconate 1,000 mg in sodium chloride 0.9 % 100 mL IVPB (1 source) Start: 06-22-2022 End: 06-22-2022 calcium gluconate 1,000 mg in sodium chloride 0.9 % 100 mL IVPB cephalexin 500 mg oral capsule (4 sources) Cephalosporin Antibacterial Start: 11-30-2017 End: 12-16-2017 take 500 mg by mouth three times daily Cephalexin Discontinued 500 MG PO Three times daily November 30, 2017 12:00am December 16, 2017 10:12am x10 days as ordered per Dr. Brar dicloxacillin 500 mg oral capsule (4 sources) Penicillin-class Antibacterial Start: 06-01-2017 End: 08-24-2017 take 500 mg by mouth three times daily Dicloxacillin Discontinued 500 MG PO Three times daily June 01, 2017 1:00am August 24, 2017 10:21am doxycycline hyclate 100 mg oral capsule (4 sources) Tetracycline-class Drug Start: 03-23-2019 End: 01-02-2020 take 100 mg by mouth twice daily Doxycycline Hyclate Discontinued 100 MG PO Twice daily 56 March 23, 2019 1:00am January 02, 2020 11:08am ferrous sulfate 325 mg oral tablet (5 sources) Start: 10-27-2022 End: 05-04-2023 take 325 mg by mouth once daily Ferrous Sulfate Discontinued 325 MG PO Daily October 27, 2022 12:00am May 04, 2023 12:25pm Start: 06-26-2022 take 1 tablet by mack th once daily at breakfast ferrous sulfate (IRON 325) 325 (65 Fe) MG tablet Take 1 tablet by mouth daily (with breakfast) 90 tablet 1 06/26/2022 Active gentamicin 0.001 mg/mg topic al ointment (8 sources) Start: 11-23-2017 End: 05-19-2018 Gentamicin Discontinued [...] insulin aspart, human 100 unt/ml injectable solution (4 sources) Insulin Analog Start: 12-07-2016 End: 05-19-2018 [...] 04/13/2017 06/26/2022 Discontinued (Stop Taking at Discharge) Insulin Glargine (Lantus) 100 unit/mL Solution (4 sources) Start: 12-07-2016 End: 09-08-2022 inject 50 [IU] by subcutaneous injection twice daily Insulin Glargine (Lantus) 100 unit/mL Solution Discontinued 50 UNITS SUBCUT Twice daily December 07, 2016 12:00am September 08, 2022 11:16am Start: 12-07-2016 inject 50 [IU] by paul bcutaneous injection twice daily Insulin Glargine (Lantus) 100 unit/mL Solution Active 50 UNITS SUBCUT Twice daily December 07, 2016 12:00am Start: 12-07-2016 inject 50 [IU] by paul bcutaneous injection twice daily Insulin Glargine (Lantus) 100 unit/mL Solution Active 50 UNITS SUBCUT Twice daily December 06, 2016 11:00pm Insulin Lispro (Humalog Kwikpen Insulin) 100 unit/mL Insulin Pen (2 sources) Start: 05-19-2018 End: 09-08-2022 Insulin Lispro (Humalog Kwikpen Insulin) 100 unit/mL Insulin Pen Discontinued 0 .ROUTE .COMPLEX May 19, 2018 1:00am September 08, 2022 11:16am SLIDING SCALE insulin, regular, human 100 unt/ml injectable solution (1 source) Insulin Start: 06-22-2022 End: 06-22-2022 insulin regular (HUMULIN R;NOVOLIN R) injection 10 Units levoFLOXacin 750 mg oral tablet (8 sources) Quinolone Antimicrobial Start: 02-13-2023 End: 05-04-2023 take 750 mg by mouth once daily Levofloxacin Discontinued 750 MG PO Daily February 13, 2023 1:00am May 04, 2023 12:23pm Start: 12-01-2022 End: 02-07-2023 take 500 mg by mouth once daily Levofloxacin Discontinued 500 MG PO Daily December 01, 2022 12:00am February 07, 2023 4:16pm Start: 10-16-2021 End: 11-18-2021 take 750 mg by mouth once daily Levofloxacin Discontinued 750 MG PO Daily October 16, 2021 12:00am November 18, 2021 11:49am x6 weeks, Called to pharmacy 09/09/2021 polyethylene glycol 3350 67538 mg powder for oral solution (1 source) Osmotic Laxative Start: 06-22-2022 17 g, Oral, D AILY PRN, Starting on Wed06/22/22 at 2018, Until Discontinued, Constipation First line therapy for constipation polyethylene glycol 3350 766147 mg / potassium chloride 2970 mg / sodium bicarbonate 6740 mg / sodium chloride 5860 mg / sodium sulfate 61049 mg powder for oral solution (1 source) Osmotic Laxative Start: 06-25-2022 End: 06-25-2022 polyethylene glycol (GoLYTELY) solution 4,000 mL Start: 06-25-2022 End: 06-25-2022 polyethylene glycol (GoLYTEL Y) solution 4,000 mL rosuvastatin calcium 20 mg oral tablet (7 sources) HMG-CoA Reductase Inhibitor Start: 12-07-2016 End: 06-26-2022 take 1 tablet by mouth once daily Rosuvastatin (Crestor) 20 mg Tablet Discontinued 20 MG PO Daily December 07, 2016 12:00am March 23, 2019 12:03pm silver sulfADIAZINE 10 mg/ml topical cream (4 sources) Sulfonamide Antibacterial Start: 09-22-2018 End: 03-23-2019 Silver Sulfadiazine (Silvadene) 1 % cream Discontinued 1 APPLIC TOPICAL Daily 400 September 22, 2018 12:00am March 23, 2019 12:03pm apply a 1.5 mm thickness sodium polystyrene sulfonate 250 mg/ml oral suspension (1 source) Start: 06-22-2022 End: 06-22-2022 sodium polystyrene (KAYEXALATE) 15 GM/60ML suspension 45 g sodium zirconium cyclosilicate 70945 mg powder for oral suspension (1 source) Start: 06-23-2022 End: 06-23-2022 sodium zirconium cyclosilicate (LOKELMA) oral suspension 10 g sulfamethoxazole 800 mg / trimethoprim 160 mg oral tablet (12 sources) Dihydrofolate Reductase Inhibitor Antibacterial, Sulfonamide Antimicrobial [...] 10:21am Start: 12-07-2016 End: 12-08-2016 Bactrim Discontinued [facility] 2016 12:00am December 08, 2016 2:50pm Start: 12-07-2016 End: 12-08-2016 Bactrim Discontinued [facility] 2016 11:00pm December 08, 2016 1:50pm triamcinolone acetonide 5 mg/ml topical cream (2 sources) Corticosteroid Start: 02-07-2023 End: 05-04-2023 Triamcinolone Acetonide Discontinued 0.5 APPLIC TOPICAL Three times daily February 07, 2023 1:00am May 04, 2023 12:25pm Problems Active Problems Problem Classification Problem Date Documented Date Episodic/Chronic Chronic kidney disease (10 sources) Chronic kidney disease; 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: [Chronic kidney [...] Chronic Complication of device; implant or graft (8 sources) Injury of cauda equina ; 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: [...] other anemia (1 source) Anemia 11-09-2022 Episodic Deficiency and other anemia (2 sources) Microcytic anemia; 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: [Iron deficiency anemia, unspecified] 02-07-2023 Episodic Diabetes mellitus with complications (20 sources) Type 2 diabetes mellitus with hyperglycemia; 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: [Diabetic foot ulcer] Onset: 2 Chronic Diabetes mellitus without complication (12 sources) Diabetes mellitus; 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: [Type 2 diabetes mellitus without complications] Onset: 2 05-06-2020 Chronic Disorders of lipid metabolism (10 sources) Mixed hyperlipidemia; 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: [Mixed hyperlipidemia] Onset: 6 04-25-2015 Chronic Essential hypertension (12 sources) Hypertensive disorder; 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: [Essential (primary) hypertension] [...] caused by tuberculosis or sexually transmitted disease) (20 sources) Osteomyelitis of right foot; 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: [Osteomyelitis, unspecified] Onset: 7 Resolved: 8 12-28-2016 Chronic Mood disorders (9 sources) Depressive disorder; 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: [Depression] Onset: 4 12-24-2016 Chronic Other diseases of bladder and urethra (7 [...] injuries and conditions due to external causes (4 sources) Injury of cauda equina ; 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: [Injury of cauda equina, subsequent encounter] 06-01-2017 Episodic Other nervous system disorders (4 sources) Acute postoperative pain; 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: [Other acute postprocedural pain] 09-04-2021 Episodic Other non-traumatic joint disorders (6 sources) Pain in right hip; 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: [Pain in joint, pelvic region and thigh] Onset: 2 Episodic Other non-traumatic joint disorders (4 sources) Hip pain; 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: [Pain in right hip] 01-27-2022 Episodic Other nutritional; endocrine; and metabolic disorders (4 sources) Obesity; 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: [Obesity, unspecified] 09-23-2017 Chronic [...] 1 04-30-2020 Chronic Peripheral and visceral atherosclerosis (3 sources) Peripheral vascular disease, unspecified; 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: [Peripheral arterial disease] Onset: 3 02-07-2023 Chronic Residual codes; unclassified (1 source) Sleep apnea 11-09-2022 Chronic Residual codes; unclassified (4 sources) Obstructive sleep apnea syndrome; 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: [Obstructive sleep apnea (adult) (pediatric)] Onset: 4 04-06-2023 Chronic Residual codes; unclassified (4 sources) Pain; 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: [Pain, unspecified] 05-19-2018 Episodic Spondylosis; intervertebral disc disorders; other back problems (2 sources) Sacral back pain; 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: [Sacrococcygeal disorders, not elsewhere classified] 09-08-2022 Episodic Unclassified (1 source) Pressure ulcer of sacral region, stage 4; 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: [Pressure ulcer of sacral region, stage 4] Onset: 3 Urinary tract infections (4 sources) Recurrent urinary tract infection; 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: [Urinary tract infection, site not specified] Onset: 4 04-06-2023 Episodic Past or Other Problems Problem Classification Problem Date Documented Date Episodic/Chronic Acute and unspecified renal failure (16 sources) [id number] renal failure; 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: [Acute kidney failure, unspecified] Onset: 12-30-2016 12-30-2016 Episodic Bacterial infection; unspecified site (15 sources) Infection due to enterococcus; 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: [Enterococcus as the cause of diseases classified elsewhere] Onset: 12-28-2016 12-28-2016 Episodic Deficiency and other anemia (2 sources) Iron deficiency anemia, unspecified; 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: [Iron deficiency anemia, unspecified] Onset: 06-26-2022 Episodic Fluid and electrolyte disorders (13 sources) Hyponatremia; 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: [Hypo-osmolality and hyponatremia] Onset: 04-25-2015 04-25-2015 Episodic Open wounds of extremities (11 sources) Open wound of lower limb with complication; 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: [Unspecified open wound, unspecified knee, initial encounter] Onset: 02-25-2011 01-07-2017 Episodic Other aftercare (1 source) assisted (current) use of insulin; 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: [assisted (current) use of insulin] Onset: 02-06-2023 Episodic Other injuries and conditions due to external causes (1 source) Injury of cauda equina, subsequent encounter; 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: [Injury of cauda equina, subsequent encounter] Onset: 02-06-2023 Episodic Septicemia (except in labor) (5 sources) Sepsis due to methicillin resistant Staphylococcus aureus; 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: [Sepsis due to Methicillin resistant Staphylococcus aureus] Onset: 09-09-2016 Resolved: 05-26-2017 05-26-2017 Episodic Skin and subcutaneous tissue infections (20 sources) Cellulitis, unspecified; 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: [Cellulitis] Onset: 02-25-2011 Resolved: 06-09-2017 04-20-2019 Episodic Results Test Name Value Interpretation Reference Range Facility [facility] 07-08-2023 L Specimen: [id number] Received: 07/12/23 Status: ROSIO Rajput Num: [id number] Spec Type: Surgical Subm Dr: Bubba Bahena DPM, MS Tissues: A Debridement-Skin/Other Than Skin (LEFT FIBULA) B Debridement-Skin/Other Than Skin (LEFT TALUS) Procedures: HE/2, Gross/Micro L3/2 Age/ Patient Sex Location Account Attending Physician Ganga Stinson 63/M LABELL [id number] Bubba Bahena DPM, MS SPEC NUM: [id number] RECD: 07/12/23 STATUS: ROSIO RAJPUT NUM: [id number] NAYLA: 07/08/[address]: Bubba Bahena DPM, MS ENTERED: 07/12/23 [facility] DR: Titi,Lab SPEC TYPE: Surgical DEPT: RAFI SMITH ORDERED: HE/2, Gross/Micro L3/2 ORDERED: HE/2, Gross/Micro L3/2 Pathological Diagnosis A, left fibula, debridement excision: -Severe infected chronic pressure wound with apparent severe chronic callus type bony degeneration with patchy associated acute inflammation, also compatible with focally mildly superimposed acute osteomyelitis B, left talus bone, debridement excision: -Severe chronic pressure wound similar to part A specimen, with apparently associated callus type bony fracture or degeneration, and the rare minor superimposed foci of acute osteomyelitis also noticed Gross Description A.) In formalin labeled left fibula are four pieces of pardo-brown soft and bone tissue ranging in size from 0.6 x 0.4 x 0.4 cm to 1.2 x 0.6 x 0.3 cm. Submitted entirely in decal and in A1. B.) in formalin labeled left talus is a 2.6 x 2.3 x 0.4 cm aggregate of pardo-osborne soft and the bone tissue and clot. Submitted entirely in decal and in B1. RG/CYC Clinical history: Pressure ulcer of right heel, pressure ulcer of left heel?path pending Specimen: [id number] Received: 07/12/23 Status: ROSIO Rajput Num: [id number] Spec Type: Surgical Subm Dr: Bubba Bahena,DPM, MS Tissues: A Debridement-Skin/Other Than Skin (LEFT FIBULA) B Debridement-Skin/Other Than Skin (LEFT TALUS) Procedures: HE/2, Gross/Micro L3/2 Patient: Ganga Stinson [id number] (Continued) Specimen: [id number] Received: 07/12/23 (Continued) Signed (signature on file) Anh Smith MD 07/14/23 1022 Specimen: [id number] Received: 07/12/23 Status: ROSIO Matti Num: [id number] Spec Type: Surgical Subm Dr: Bubba Bahena,CRISTIANA, MS Tissues: A Debridement-Skin/Other Than Skin (LEFT FIBULA) B Debridement-Skin/Other Than Skin (LEFT TALUS) Procedures: HE/Gianna Decker/Margo L3/2 Patient: Ganga Stinson [id number] (Continued) Specimen: [id number] Received: 07/12/23 (Continued) CPT Codes 30297 x 2 91665 x 2 Specimen: [id number] Received: 07/12/23 Status: ROSIO Rajput Num: [id number] Spec Type: Surgical Subm Dr: Bubba Bahena,CRISTIANA, MS Tissues: A Debridement-Skin/Other Than Skin (LEFT FIBULA) B Debridement-Skin/Other Than Skin (LEFT TALUS) Procedures: HE/Brianne, Gross/Micro L3/2 Patient: Ganga Stinson [id number] (Continued) Signed (signature on file) Anh Smith MD 07/14/23 1022 Normal [facility] Consent for Procedure/Surger yon 06-14-2023 Consent for Procedure/Surgery [id number] Normal [facility] Aerobic Cultureon 06-04-2023 Aerobic Culture Comment left fibular bone biopsy ORGANISM: Strep dysgalactiae (O:STRDYS) Quantity of Growth Heavy Growth Comment left fibular bone biopsy ORGANISM: Prevotella disiens (O:PREDIS) Comments Sent to [facility] for Sensitivity Testing Quantity of Growth Light Growth Please see scanned report located in the EMR under the Diagnostics tab -> Scanned Lab Reports -> Laboratory. Comment left fibular bone biopsy Gram Stain Result No Bacteria Seen Rare White Blood Cells PERFORMED BY: [place] [address] PATHOLOGIST RAILROAD TRACK REPAIR SUPERVISOR FARRAH PAUL M.D. Normal [facility] Comment on above: Performed By: #### A ERC #### [address] Glucose Glucometer (dC) [M ass/Vol]Ordered By: Jonathan Moffett on 06-04-2023 Glucose [Mass/Vol] 134 mg/dL [facility] Comment on above: Random Glucose Refer ence Range is dependent on time and content of last meal. Glucose of more than 200 mg/dL in a nonstressed, ambulatory subject supports the diagnosis of Diabetes Mellitus. Glucose Poct Glucometerson 0 06-04-2023 Glucose [Mass/Vol] 134 mg/dL Normal [facility] Comment on above: Result Comment: [place] Glucose Reference Range is dependent on time and content of last meal. Glucose of more than 200 mg/dL in a nonstressed, ambulatory subject supports the diagnosis of Diabetes Mellitus. PERFORMED BY: [facility] [address] [place] [address] PATHOLOGIST RAILROAD TRACK REPAIR SUPERVISOR FARRAH PAUL M.D. Performed By: #### G LULS #### Point of Care testing , Gram stain for investigation of transfusion reactionOrdered By: Jonathan Moffett on 06-04-2023 Microscopic observation Gram stain Nom (Unsp spec) Maurizio alejandre [facility] Lab Reportson 05-18-2023 Lab Reports [id number] Normal [facility] Reminderson 04-30-2023 Reminders - From: Ama Arteaga To: [place] - Recalls [place]; Cc: Ama Arteaga; Sent: 01/15/2023 08:12:10 EDT Show up: 04/29/2023 08:12:00 EST Subject: Cysto/UD Due Date/Time: 06/07/2023 08:11:00 EDT Reminder/Recall Patient needs 6 month cysto/UD in June 2023 Spoke to pt, sched for 07/12/23 at [facility].LG Patient will be due in Dec 2023.LG Normal [facility] Basic Metabolic Panelon 01-27 Anion gap [Moles/Vol] 8.4 mmol/L Normal 6.0-15.0 [facility] Comment on above: Performed By: #### G LULS #### Point of Care testing , Calcium [Mass/Vol] 7.8 mg/dL Low 8.6-10.3 [facility] Comment on above: Performed By: #### G LULS #### Point of Care testing , Chloride [Moles/Vol] 108 mmol/L High 98-107 [facility] Comment on above: Performed By: #### G LULS #### Point of Care testing , CO2 [Moles/Vol] 24.7 mmol/L Normal 21.0-31.0 [facility] Comment on above: Performed By: #### G LULS #### Point of Care testing , Creatinine [Mass/Vol] 1.41 mg/dL High 0.70-1.30 [facility] Comment on above: Performed By: #### G LULS #### Point of Care testing , Creatinine Clr Calc Pharmacy 69.02 Normal [facility] Comment on above: Result Comment: PERF ORMED BY: [facility] [place] [address] PATHOLOGIST RAILROAD TRACK REPAIR SUPERVISOR FARRAH PAUL M.D. Performed By: #### G LULS #### Point of Care testing , GFR/1.73 sq M.predicted MDRD (S/P/Bld) [Vol rate/Area] 56.696 mL/min/{1.73_m2} Normal [facility] Comment on above: Performed By: #### G LULS #### Point of Care testing , Glucose [Mass/Vol] 176 mg/dL Significant change up 70-100 [facility] Comment on above: Result Comment: [place] Glucose Reference Range is dependent on time and content of last meal. Glucose of more than 200 mg/dL in a nonstressed, ambulatory subject supports the diagnosis of Diabetes Mellitus. ADA recommended reference range Performed By: #### G LULS #### Point of Care testing , Potassium [Moles/Vol] 4.1 mmol/L Normal 3.5-5.1 [facility] Comment on above: Performed By: #### G LULS #### Point of Care testing , Sodium [Moles/Vol] 137 mmol/L Normal 136-145 [facility] Comment on above: Performed By: #### G LULS #### Point of Care testing , Urea nitrogen [Mass/Vol] 17 mg/dL Normal 7-25 [facility] Comment on above: Performed By: #### G LULS #### Point of Care testing , Glucose Poct Glucometerson 04-15-2022 Commemt1 Glu2: Cleaned Meter Normal [facility] Comment on above: Result Comment: PERF ORMED BY: [facility] [address] [place] [address] PATHOLOGIST RAILROAD TRACK REPAIR SUPERVISOR FARRAH PAUL M.D. Performed By: #### G LULS #### Point of Care testing , Glucose [Mass/Vol] 162 mg/dL Normal [facility] Comment on above: Result Comment: [place] om Glucose Reference Range is dependent on time and content of last meal. Glucose of more than 200 mg/dL in a nonstressed, ambulatory subject supports the diagnosis of Diabetes Mellitus. Performed By: #### G LULS #### Point of Care testing , Glucose [Mass/Vol] 76 mg/dL Normal [facility] Comment on above: Result Comment: [place] om Glucose Reference Range is dependent on time and content of last meal. Glucose of more than 200 mg/dL in a nonstressed, ambulatory subject supports the diagnosis of Diabetes Mellitus. PERFORMED BY: [facility] [address] [place] [address] PATHOLOGIST RAILROAD TRACK REPAIR SUPERVISOR FARRAH PAUL M.D. Performed By: #### G LULS #### Point of Care testing , Basic Metabolic Panelon 11- Anion gap [Moles/Vol] 10.8 mmol/L Normal 6.0-15.0 [facility] Comment on above: Performed By: #### G LULS #### Point of Care testing , Calcium [Mass/Vol] 8.0 mg/dL Low 8.6-10.3 [facility] Comment on above: Performed By: #### G LULS #### Point of Care testing , Chloride [Moles/Vol] 106 mmol/L Normal 98-107 [facility] Comment on above: Performed By: #### G LULS #### Point of Care testing , CO2 [Moles/Vol] 26.2 mmol/L Normal 21.0-31.0 [facility] Comment on above: Performed By: #### G LULS #### Point of Care testing , Creatinine [Mass/Vol] 1.47 mg/dL High 0.70-1.30 [facility] Comment on above: Performed By: #### G LULS #### Point of Care testing , Creatinine Clr Calc Pharmacy 66.15 Normal [facility] Comment on above: Result Comment: PERF ORMED BY: [facility] [address] [place] [address] PATHOLOGIST RAILROAD TRACK REPAIR SUPERVISOR FARRAH PAUL M.D. Performed By: #### G LULS #### Point of Care testing , GFR/1.73 sq M.predicted MDRD (S/P/Bld) [Vol rate/Area] 53.931 mL/min/{1.73_m2} Normal [facility] Comment on above: Performed By: #### G LULS #### Point of Care testing , Glucose [Mass/Vol] 71 mg/dL Normal 70-100 [facility] Comment on above: Result Comment: [facility] Glucose Reference Range is dependent on time and content of last meal. Glucose of more than 200 mg/dL in a nonstressed, ambulatory subject supports the diagnosis of Diabetes Mellitus. ADA recommended reference range Performed By: #### G LULS #### Point of Care testing , Potassium [Moles/Vol] 4.0 mmol/L Normal 3.5-5.1 [facility] Comment on above: Performed By: #### G LULS #### Point of Care testing , Sodium [Moles/Vol] 139 mmol/L Normal 136-145 [facility] Comment on above: Performed By: #### G LULS #### Point of Care testing , Urea nitrogen [Mass/Vol] 18 mg/dL Normal 7-25 [facility] Comment on above: Performed By: #### G LULS #### Point of Care testing , Complete Blood Count Auto Di ffon 02-12-2023 Basophils (Bld) [#/Vol] 0.1 10*3/uL Normal 0.0-0.2 [facility] Comment on above: Result Comment: PERF ORMED BY: [facility] [place] [address] PATHOLOGIST RAILROAD TRACK REPAIR SUPERVISOR FARRAH PAUL M.D. Performed By: #### G LULS #### Point of Care testing , Basophils/100 WBC (Bld) 0.6 % Normal . [facility] Comment on above: Performed By: #### G LULS #### Point of Care testing , Eosinophils (Bld) [#/Vol] 0.7 10*3/uL High 0.0-0.45 [facility] Comment on above: Performed By: #### G LULS #### Point of Care testing , Eosinophils/100 WBC (Bld) 5.7 % Normal . [facility] Comment on above: Performed By: #### G LULS #### Point of Care testing , Erythrocyte distribution width (RBC) [Ratio] 15.6 % High 12.0-14.8 [facility] Comment on above: Performed By: #### G LULS #### Point of Care testing , Hematocrit (Bld) [Volume fraction] 27.3 % Low 38.8-50.0 [facility] Comment on above: Performed By: #### G LULS #### Point of Care testing , Hemoglobin (Bld) [Mass/Vol] 8.7 g/dL Low 13.0-17.0 [facility] Comment on above: Performed By: #### G LULS #### Point of Care testing , Lymphocytes (Bld) [#/Vol] 2.2 10*3/uL Normal 1.00-4.8 [facility] Comment on above: Performed By: #### G LULS #### Point of Care testing , Lymphocytes/100 WBC (Bld) 18.7 % Normal . [facility] Comment on above: Performed By: #### G LULS #### Point of Care testing , MCH (RBC) [Entitic mass] 25.4 pg Low 27.5-35.2 [facility] Comment on above: Performed By: #### G LULS #### Point of Care testing , MCV (RBC) [Entitic vol] 79.6 fL Low 83.5-101 [facility] Comment on above: Performed By: #### G LULS #### Point of Care testing , Mean Corpuscular HGB Conc 32.0 g/dL Low 32.5-35.6 [facility] Comment on above: Performed By: #### G LULS #### Point of Care testing , Monocytes (Bld) [#/Vol] 1.0 10*3/uL High 0.0-0.8 [facility] Comment on above: Performed By: #### G LULS #### Point of Care testing , Monocytes/100 WBC (Bld) 8.8 % Normal . [facility] Comment on above: Performed By: #### G LULS #### Point of Care testing , Neutrophils (Bld) [#/Vol] 7.9 10*3/uL High 1.8-7.7 [facility] Comment on above: Performed By: #### G LULS #### Point of Care testing , Neutrophils/100 WBC (Bld) 66.2 % Normal . [facility] Comment on above: Performed By: #### G LULS #### Point of Care testing , NRBC% 0.1 /100{WBC} Normal 0-0.5 [facility] Comment on above: Performed By: #### G LULS #### Point of Care testing , Platelet mean volume (Bld) [Entitic vol] 6.4 fL Low 6.6-10.1 [facility] Comment on above: Performed By: #### G LULS #### Point of Care testing , Platelets (Bld) [#/Vol] 305 10*3/uL Normal 150-450 [facility] Comment on above: Performed By: #### G LULS #### Point of Care testing , RBC (Bld) [#/Vol] 3.43 10*6/uL Low 3.90-5.60 [facility] Comment on above: Performed By: #### G LULS #### Point of Care testing , WBC (Bld) [#/Vol] 11.9 10*3/uL High 4.1-10.5 [facility] Comment on above: Performed By: #### G LULS #### Point of Care testing , Glucose Poct Glucometerson 04-14-2022 Glucose [Mass/Vol] 138 mg/dL Normal [facility] Comment on above: Result Comment: [facility] Glucose Reference Range is dependent on time and content of last meal. Glucose of more than 200 mg/dL in a nonstressed, ambulatory subject supports the diagnosis of Diabetes Mellitus. PERFORMED BY: [address] [place] [address] PATHOLOGIST RAILROAD TRACK REPAIR SUPERVISOR FARRAH PAUL M.D. Performed By: #### G LULS #### Point of Care testing , Glucose [Mass/Vol] 172 mg/dL Normal [facility] Comment on above: Result Comment: [place] om Glucose Reference Range is dependent on time and content of last meal. Glucose of more than 200 mg/dL in a nonstressed, ambulatory subject supports the diagnosis of Diabetes Mellitus. PERFORMED BY: [address] [address] PATHOLOGIST RAILROAD TRACK REPAIR SUPERVISOR FARRAH PAUL M.D. Performed By: #### G LULS #### Point of Care testing , Glucose [Mass/Vol] 99 mg/dL Normal [facility] Comment on above: Result Comment: [place] om Glucose Reference Range is dependent on time and content of last meal. Glucose of more than 200 mg/dL in a nonstressed, ambulatory subject supports the diagnosis of Diabetes Mellitus. PERFORMED BY: [address] [address] PATHOLOGIST RAILROAD TRACK REPAIR SUPERVISOR FARRAH PAUL M.D. Performed By: #### G LULS #### Point of Care testing , Commemt1 Glu2: Cleaned Meter Normal [facility] Comment on above: Result Comment: PERF ORMED BY: [address] [address] PATHOLOGIST RAILROAD TRACK REPAIR SUPERVISOR FARRAH PAUL M.D. Performed By: #### G LULS #### Point of Care testing , Glucose [Mass/Vol] 81 mg/dL Normal [facility] Comment on above: Result Comment: [place] om Glucose Reference Range is dependent on time and content of last meal. Glucose of more than 200 mg/dL in a nonstressed, ambulatory subject supports the diagnosis of Diabetes Mellitus. Performed By: #### G LULS #### Point of Care testing , Basic Metabolic Panelon 11- Anion gap [Moles/Vol] 10.0 mmol/L Normal 6.0-15.0 [facility] Comment on above: Performed By: #### G LULS #### Point of Care testing , Calcium [Mass/Vol] 8.2 mg/dL Low 8.6-10.3 [facility] Comment on above: Performed By: #### G LULS #### Point of Care testing , Chloride [Moles/Vol] 106 mmol/L Normal 98-107 [facility] Comment on above: Performed By: #### G LULS #### Point of Care testing , CO2 [Moles/Vol] 24.4 mmol/L Normal 21.0-31.0 [facility] Comment on above: Performed By: #### G LULS #### Point of Care testing , Creatinine [Mass/Vol] 1.25 mg/dL Normal 0.70-1.30 [facility] Comment on above: Performed By: #### G LULS #### Point of Care testing , Creatinine Clr Calc Pharmacy 77.72 Normal [facility] Comment on above: Result Comment: PERF ORMED BY: [address] [address] PATHOLOGIST RAILROAD TRACK REPAIR SUPERVISOR FARRAH PAUL M.D. Performed By: #### G LULS #### Point of Care testing , GFR/1.73 sq M.predicted MDRD (S/P/Bld) [Vol rate/Area] mL/min/{1.73_m2} Normal [facility] Comment on above: Performed By: #### G LULS #### Point of Care testing , Glucose [Mass/Vol] 164 mg/dL High 70-100 [facility] Comment on above: Result Comment: [facility] Glucose Reference Range is dependent on time and content of last meal. Glucose of more than 200 mg/dL in a nonstressed, ambulatory subject supports the diagnosis of Diabetes Mellitus. ADA recommended reference range Performed By: #### G LULS #### Point of Care testing , Potassium [Moles/Vol] 4.4 mmol/L Normal 3.5-5.1 [facility] Comment on above: Performed By: #### G LULS #### Point of Care testing , Sodium [Moles/Vol] 136 mmol/L Normal 136-145 [facility] Comment on above: Performed By: #### G LULS #### Point of Care testing , Urea nitrogen [Mass/Vol] 18 mg/dL Normal 7-25 [facility] Comment on above: Performed By: #### G LULS #### Point of Care testing , Complete Blood Count Auto Di ffon 02-11-2023 Basophils (Bld) [#/Vol] 0.0 10*3/uL Normal 0.0-0.2 [facility] Comment on above: Result Comment: PERF ORMED BY: [facility] [address] [place] [address] PATHOLOGIST RAILROAD TRACK REPAIR SUPERVISOR FARRAH PAUL M.D. Performed By: #### G LULS #### Point of Care testing , Basophils/100 WBC (Bld) 0.3 % Normal . [facility] Comment on above: Performed By: #### G LULS #### Point of Care testing , Eosinophils (Bld) [#/Vol] 0.7 10*3/uL High 0.0-0.45 [facility] Comment on above: Performed By: #### G LULS #### Point of Care testing , Eosinophils/100 WBC (Bld) 5.1 % Normal . [facility] Comment on above: Performed By: #### G LULS #### Point of Care testing , Erythrocyte distribution width (RBC) [Ratio] 15.2 % High 12.0-14.8 [facility] Comment on above: Performed By: #### G LULS #### Point of Care testing , Hematocrit (Bld) [Volume fraction] 28.7 % Low 38.8-50.0 [facility] Comment on above: Performed By: #### G LULS #### Point of Care testing , Hemoglobin (Bld) [Mass/Vol] 9.3 g/dL Low 13.0-17.0 [facility] Comment on above: Performed By: #### G LULS #### Point of Care testing , Lymphocytes (Bld) [#/Vol] 1.0 10*3/uL Normal 1.00-4.8 [facility] Comment on above: Performed By: #### G LULS #### Point of Care testing , Lymphocytes/100 WBC (Bld) 7.5 % Normal . [facility] Comment on above: Performed By: #### G LULS #### Point of Care testing , MCH (RBC) [Entitic mass] 25.8 pg Low 27.5-35.2 [facility] Comment on above: Performed By: #### G LULS #### Point of Care testing , MCV (RBC) [Entitic vol] 79.3 fL Low 83.5-101 [facility] Comment on above: Performed By: #### G LULS #### Point of Care testing , Mean Corpuscular HGB Conc 32.5 g/dL Normal 32.5-35.6 [facility] Comment on above: Performed By: #### G LULS #### Point of Care testing , Monocytes (Bld) [#/Vol] 0.8 10*3/uL Normal 0.0-0.8 [facility] Comment on above: Performed By: #### G LULS #### Point of Care testing , Monocytes/100 WBC (Bld) 6.0 % Normal . [facility] Comment on above: Performed By: #### G LULS #### Point of Care testing , Neutrophils (Bld) [#/Vol] 10.5 10*3/uL High 1.8-7.7 [facility] Comment on above: Performed By: #### G LULS #### Point of Care testing , Neutrophils/100 WBC (Bld) 81.1 % Normal . [facility] Comment on above: Performed By: #### G LULS #### Point of Care testing , NRBC% 0.0 /100{WBC} Normal 0-0.5 [facility] Comment on above: Performed By: #### G LULS #### Point of Care testing , Platelet mean volume (Bld) [Entitic vol] 6.4 fL Low 6.6-10.1 [facility] Comment on above: Performed By: #### G LULS #### Point of Care testing , Platelets (Bld) [#/Vol] 339 10*3/uL Normal 150-450 [facility] Comment on above: Performed By: #### G LULS #### Point of Care testing , RBC (Bld) [#/Vol] 3.62 10*6/uL Low 3.90-5.60 [facility] Comment on above: Performed By: #### G LULS #### Point of Care testing , WBC (Bld) [#/Vol] 12.9 10*3/uL High 4.1-10.5 [facility] Comment on above: Performed By: #### G LULS #### Point of Care testing , Glucose Poct Glucometerson 1 04-13-2022 Commemt1 Glu2: Cleaned Meter Normal [facility] Comment on above: Result Comment: PERF ORMED BY: [address] [place] [address] PATHOLOGIST RAILROAD TRACK REPAIR SUPERVISOR FARRAH PAUL M.D. Performed By: #### G LULS #### Point of Care testing , Glucose [Mass/Vol] 174 mg/dL Normal [facility] Comment on above: Result Comment: [facility] Glucose Reference Range is dependent on time and content of last meal. Glucose of more than 200 mg/dL in a nonstressed, ambulatory subject supports the diagnosis of Diabetes Mellitus. Performed By: #### G LULS #### Point of Care testing , Glucose [Mass/Vol] 182 mg/dL Normal [facility] Comment on above: Result Comment: [facility] Glucose Reference Range is dependent on time and content of last meal. Glucose of more than 200 mg/dL in a nonstressed, ambulatory subject supports the diagnosis of Diabetes Mellitus. PERFORMED BY: [address] [place] [id number] PATHOLOGIST RAILROAD TRACK REPAIR SUPERVISOR FARRAH PAUL M.D. Performed By: #### G LULS #### Point of Care testing , Commemt1 Glu2: Cleaned Meter Normal [facility] Comment on above: Result Comment: PERF ORMED BY: [address] [place] [address] PATHOLOGIST RAILROAD TRACK REPAIR SUPERVISOR FARRAH PAUL M.D. Performed By: #### G LULS #### Point of Care testing , Glucose [Mass/Vol] 169 mg/dL Normal [facility] Comment on above: Result Comment: [place] om Glucose Reference Range is dependent on time and content of last meal. Glucose of more than 200 mg/dL in a nonstressed, ambulatory subject supports the diagnosis of Diabetes Mellitus. Performed By: #### G LULS #### Point of Care testing , Glucose [Mass/Vol] 144 mg/dL Normal [facility] Comment on above: Result Comment: [place] om Glucose Reference Range is dependent on time and content of last meal. Glucose of more than 200 mg/dL in a nonstressed, ambulatory subject supports the diagnosis of Diabetes Mellitus. PERFORMED BY: [address] [place] [address] PATHOLOGIST RAILROAD TRACK REPAIR SUPERVISOR FARRAH PAUL M.D. Performed By: #### G LULS #### Point of Care testing , Commemt1 Glu2: Cleaned Meter Normal [facility] Comment on above: Result Comment: PERF ORMED BY: [address] [place] [address] PATHOLOGIST RAILROAD TRACK REPAIR SUPERVISOR FARRAH PAUL M.D. Performed By: #### G LULS #### Point of Care testing , Glucose [Mass/Vol] 125 mg/dL Normal [facility] Comment on above: Result Comment: [place] om Glucose Reference Range is dependent on [...] RESISTANT TO ALL B-LACTAM DRUGS. PERFORMED BY: [address] [place] [address] PATHOLOGIST RAILROAD TRACK REPAIR SUPERVISOR FARRAH PAUL M.D. Normal [facility] Comment on above: Performed By: #### G LULS #### Point of Care testing , Basic Metabolic Panelon 11-1 Anion gap [Moles/Vol] 10.1 mmol/L Normal 6.0-15.0 [facility] Comment on above: Performed By: #### G LULS #### Point of Care testing , Calcium [Mass/Vol] 8.1 mg/dL Low 8.6-10.3 [facility] Comment on above: Performed By: #### G LULS #### Point of Care testing , Chloride [Moles/Vol] 106 mmol/L Normal 98-107 [facility] Comment on above: Performed By: #### G LULS #### Point of Care testing , CO2 [Moles/Vol] 25.3 mmol/L Normal 21.0-31.0 [facility] Comment on above: Performed By: #### G LULS #### Point of Care testing , Creatinine [Mass/Vol] 1.21 mg/dL Normal 0.70-1.30 [facility] Comment on above: Performed By: #### G LULS #### Point of Care testing , Creatinine Clr Calc Pharmacy 80.32 Normal [facility] Comment on above: Result Comment: PERF ORMED BY: [facility] [address] [place] [address] PATHOLOGIST RAILROAD TRACK REPAIR SUPERVISOR FARRAH PAUL M.D. Performed By: #### G LULS #### Point of Care testing , GFR/1.73 sq M.predicted MDRD (S/P/Bld) [Vol rate/Area] mL/min/{1.73_m2} Normal [facility] Comment on above: Performed By: #### G LULS #### Point of Care testing , Glucose [Mass/Vol] 109 mg/dL High 70-100 [facility] Comment on above: Result Comment: [place] Glucose Reference Range is dependent on time and content of last meal. Glucose of more than 200 mg/dL in a nonstressed, ambulatory subject supports the diagnosis of Diabetes Mellitus. ADA recommended reference range Performed By: #### G LULS #### Point of Care testing , Potassium [Moles/Vol] 4.4 mmol/L Normal 3.5-5.1 [facility] Comment on above: Performed By: #### G LULS #### Point of Care testing , Sodium [Moles/Vol] 137 mmol/L Normal 136-145 [facility] Comment on above: Performed By: #### G LULS #### Point of Care testing , Urea nitrogen [Mass/Vol] 20 mg/dL Normal 7-25 [facility] Comment on above: Performed By: #### G LULS #### Point of Care testing , Coagulation Profileon 2022 aPTT Coag (Bld) [Time] 30.4 s Normal 25.1-36.5 [facility] Comment on above: Result Comment: A he matocrit value greater than 55% may lead to inaccurate results in coagulation testing. Patients having hematocrit values >55% require a special collection tube for coagulation studies. Please contact the laboratory at [phone] for redraw instructions. PERFORMED BY: [facility] [address] [place] [address] PATHOLOGIST RAILROAD TRACK REPAIR SUPERVISOR FARRAH PAUL M.D. Performed By: #### G LULS #### Point of Care testing , INR Coag (PPP) [Relative time] 1.2 {INR} Normal [facility] Comment on above: Result Comment: INR Therapeutic [...] Coag (PPP) [Time] 14.0 s High 9.0-12.9 [facility] Comment on above: Result Comment: A he matocrit value greater than 55% may lead to inaccurate results in coagulation testing. Patients having hematocrit values >55% require a special collection tube for coagulation studies. Please contact the laboratory at [phone] for redraw instructions. Performed By: #### G LULS #### Point of Care testing , Complete Blood Count Auto Di ffon 02-10-2023 Basophils (Bld) [#/Vol] 0.0 10*3/uL Normal 0.0-0.2 [facility] Comment on above: Result Comment: PERF ORMED BY: [facility] [place] [address] PATHOLOGIST RAILROAD TRACK REPAIR SUPERVISOR FARRAH PAUL M.D. Performed By: #### G LULS #### Point of Care testing , Basophils/100 WBC (Bld) 0.3 % Normal . [facility] Comment on above: Performed By: #### G LULS #### Point of Care testing , Eosinophils (Bld) [#/Vol] 0.8 10*3/uL High 0.0-0.45 [facility] Comment on above: Performed By: #### G LULS #### Point of Care testing , Eosinophils/100 WBC (Bld) 7.1 % Normal . [facility] Comment on above: Performed By: #### G LULS #### Point of Care testing , Erythrocyte distribution width (RBC) [Ratio] 15.2 % High 12.0-14.8 [facility] Comment on above: Performed By: #### G LULS #### Point of Care testing , Hematocrit (Bld) [Volume fraction] 24.8 % Low 38.8-50.0 [facility] Comment on above: Performed By: #### G LULS #### Point of Care testing , Hemoglobin (Bld) [Mass/Vol] 8.2 g/dL Low 13.0-17.0 [facility] Comment on above: Performed By: #### G LULS #### Point of Care testing , Lymphocytes (Bld) [#/Vol] 1.5 10*3/uL Normal 1.00-4.8 [facility] Comment on above: Performed By: #### G LULS #### Point of Care testing , Lymphocytes/100 WBC (Bld) 13.9 % Normal . [facility] Comment on above: Performed By: #### G LULS #### Point of Care testing , MCH (RBC) [Entitic mass] 25.7 pg Low 27.5-35.2 [facility] Comment on above: Performed By: #### G LULS #### Point of Care testing , MCV (RBC) [Entitic vol] 78.1 fL Low 83.5-101 [facility] Comment on above: Performed By: #### G LULS #### Point of Care testing , Mean Corpuscular HGB Conc 32.9 g/dL Normal 32.5-35.6 [facility] Comment on above: Performed By: #### G LULS #### Point of Care testing , Monocytes (Bld) [#/Vol] 0.9 10*3/uL High 0.0-0.8 [facility] Comment on above: Performed By: #### G LULS #### Point of Care testing , Monocytes/100 WBC (Bld) 8.3 % Normal . [facility] Comment on above: Performed By: #### G LULS #### Point of Care testing , Neutrophils (Bld) [#/Vol] 7.5 10*3/uL Normal 1.8-7.7 [facility] Comment on above: Performed By: #### G LULS #### Point of Care testing , Neutrophils/100 WBC (Bld) 70.4 % Normal . [facility] Comment on above: Performed By: #### G LULS #### Point of Care testing , NRBC% 0.1 /100{WBC} Normal 0-0.5 [facility] Comment on above: Performed By: #### G LULS #### Point of Care testing , Platelet mean volume (Bld) [Entitic vol] 6.3 fL Low 6.6-10.1 [facility] Comment on above: Performed By: #### G LULS #### Point of Care testing , Platelets (Bld) [#/Vol] 318 10*3/uL Normal 150-450 [facility] Comment on above: Performed By: #### G LULS #### Point of Care testing , RBC (Bld) [#/Vol] 3.18 10*6/uL Low 3.90-5.60 [facility] Comment on above: Performed By: #### G LULS #### Point of Care testing , WBC (Bld) [#/Vol] 10.7 10*3/uL High 4.1-10.5 [facility] Comment on above: Performed By: #### G LULS #### Point of Care testing , ECG 12 lead ECG 02-10-2023 ECG 12 lead ECG [facility] [place] [address] Electrocardiograph Report Signed Patient: Ganga Stinson MR#: [id number] : 1960 Acct:[id number] Age/Sex: 62 / M ADM Date: 02/06/23 Loc: Room: [address] [place] [address] Type: ADM IN Attending Dr: Suzy Douglas [...] change was found Confirmed by DOMENICA NAZARIO [facility] ([id number] on 02/10/2023 12:17:27 PM Referred By: Electronically Signed By:PARVIN PASCUAL MD [facility] Transcribed By: MUS Signed By Rafi Pascual MD 02/10/23 1217 Normal [facility] Glucose Poct Glucometerson 1 04-12-2022 Glucose [Mass/Vol] 83 mg/dL Normal [facility] Comment on above: Result Comment: [place] Glucose Reference Range is dependent on time and content of last meal. Glucose of more than 200 mg/dL in a nonstressed, ambulatory subject supports the diagnosis of Diabetes Mellitus. PERFORMED BY: [address] [address] PATHOLOGIST RAILROAD TRACK REPAIR SUPERVISOR FARRAH PAUL M.D. Performed By: #### G LULS #### Point of Care testing , Commemt1 Glu2: Cleaned Meter Normal [facility] Comment on above: Result Comment: PERF ORMED BY: [facility] [address] [place] [address] PATHOLOGIST RAILROAD TRACK REPAIR SUPERVISOR FARRAH PAUL M.D. Performed By: #### G LULS #### Point of Care testing , Glucose [Mass/Vol] 79 mg/dL Normal [facility] Comment on above: Result Comment: [place] om Glucose Reference Range is dependent on time and content of last meal. Glucose of more than 200 mg/dL in a nonstressed, ambulatory subject supports the diagnosis of Diabetes Mellitus. Performed By: #### G LULS #### Point of Care testing , Glucose [Mass/Vol] 82 mg/dL Normal [facility] Comment on above: Result Comment: [place] Glucose Reference Range is dependent on time and content of last meal. Glucose of more than 200 mg/dL in a nonstressed, ambulatory subject supports the diagnosis of Diabetes Mellitus. PERFORMED BY: [address] [place] [address] PATHOLOGIST RAILROAD TRACK REPAIR SUPERVISOR FARRAH PAUL M.D. Performed By: #### G LULS #### Point of Care testing , Glucose [Mass/Vol] 98 mg/dL Normal [facility] Comment on above: Result Comment: [facility] Glucose Reference Range is dependent on time and content of last meal. Glucose of more than 200 mg/dL in a nonstressed, ambulatory subject supports the diagnosis of Diabetes Mellitus. PERFORMED BY: [address] [place] [address] PATHOLOGIST RAILROAD TRACK REPAIR SUPERVISOR FARRAH PAUL M.D. Performed By: #### G BHARATI #### Point of Care testing , Glucose [Mass/Vol] 119 mg/dL Normal [facility] Comment on above: Result Comment: [facility] Glucose Reference Range is dependent on time and content of last meal. Glucose of more than 200 mg/dL in a nonstressed, ambulatory subject supports the diagnosis of Diabetes Mellitus. PERFORMED BY: [address] [place] [address] PATHOLOGIST RAILROAD TRACK REPAIR SUPERVISOR FARRAH PAUL M.D. Performed By: #### G BHARATI #### Point of Care testing , Gram Stainon 02-10-2023 Microscopic observation Gram stain Nom (Unsp spec) Comment deep wound culture Gram Stain Result 1+ White Blood Cells Rare Gram Positive Cocci PERFORMED BY: [address] [place] [address] PATHOLOGIST RAILROAD TRACK REPAIR SUPERVISOR FARRAH PAUL M.D. Normal [facility] Comment on above: Performed By: #### G LULS #### Point of Care testing , Martín 02-10-2023 L ------- Specimen: [id number] Received: 02/11/23 Status: ROSIO Dahlsusu Num: [id number] Spec Type: Surgical Subm Dr: Jonathan Moffett DPM Tissues: A DIGIT AMPUTATION (LT 4TH/5TH TOE/NEC TISSUE) Procedures: HE/2, Gross/Micro L4, Decalcification Age/ Patient Sex Location Account Attending Physician Ganga Stinson/M [id number] Suzy Douglas MD SPEC NUM: [id number] RECD: 02/11/23 STATUS: ROSIO DAHLSusu NUM: [id number] NAYLA: 02/10/23- SUBM DR: Jonathan Moffett DPM ENTERED: 02/11/23 BINU OWENS: SPEC TYPE: Surgical DEPT: S ORDERED: HE/2, Gross/Micro [...] pardo-white to black-brown, heterogeneous, diffluent, soft tissue. Spout Liner Helper sections are submitted in two cassettes labeled as follows: A1 resection margins of left metatarsals four and five, en face, following fixation and decalcification, A2 chemical sales representative sections of possible gangrenous soft tissue. Specimen: [id number] Received: 02/11/23 Status: ROSIO Rajput Num: [id number] Spec Type: Surgical Subm Dr: Jonathan Moffett DPM Tissues: A DIGIT AMPUTATION (LT 4TH/5TH TOE/NEC TISSUE) Procedures: HE/2, Gross/Micro L4, Decalcification Patient: Ganga Stinson [id number] (Continued) Specimen: [id number] Received: 02/11/23 (Continued) Signed (signature on file) Parag Buenrostro MD 02/12/23 1144 Specimen: [id number] Received: 02/11/23 Status: ROSIO Rajput Num: [id number] Spec Type: Surgical Subm Dr: Jonathan Moffett DPM Tissues: A DIGIT AMPUTATION (LT 4TH/5TH TOE/NEC TISSUE) Procedures: HE/2, Gross/Micro L4, Decalcification Patient: Ganga Stinson [id number] (Continued) Specimen: [id number] Received: 02/11/23 (Continued) CPT Codes 47300 Specimen: Received: 02/11/23 Status: ROSIO Rajput Num: [id number] Spec Type: Surgical Subm Dr: Jonathan Moffett DPM Tissues: A DIGIT AMPUTATION (LT 4TH/5TH TOE/NEC TISSUE) Procedures: HE/2, Gross/Micro L4, Decalcification Patient: Ganga Stinson [id number] (Continued) Signed (signature on file) Parag Buenrostro MD 02/12/23 1144 Normal [facility] LeukoReduced RBCon 3 LeukoReduced RBC TRANSFUSED 02/10/23 1339 Normal [facility] Type and Screenon 02-10-2023 ABO and Rh group Nom (Bld) Blood group A Rh(D) negative Normal [facility] Comment on above: Order Comment: Trans fuse now? Y Number of units to transfuse now? 1 Result Comment: PERF ORMED BY: [address] [place] [address] PATHOLOGIST RAILROAD TRACK REPAIR SUPERVISOR FARRAH PAUL M.D. XR foot LT 2Von 02-10-2023 XR foot LT 2V [facility] [place] [address] XRay Report Signed Patient: Ganga Stinson MR#: [id number] : 1960 Acct:[id number] Age/Sex: 62 / M ADM Date: 02/06/23 Loc: Room: [address] [place] [address] Type: ADM IN Attending Dr: Suzy Douglas [...] Canelo Red M.D.02/10/2023 9:36 PM Dictation Location: [place] [address] Transcribed By: [facility] 02/10/232135 Dictated By: Canelo Red II, MD 02/10/232133 Signed By: 02/10/232135 Normal [facility] Basic Metabolic Panel 01-27 Anion gap [Moles/Vol] 8.5 mmol/L Normal 6.0-15.0 [facility] Comment on above: Performed By: #### G LULS #### Point of Care testing , Calcium [Mass/Vol] 7.9 mg/dL Low 8.6-10.3 [facility] Comment on above: Performed By: #### G LULS #### Point of Care testing , Chloride [Moles/Vol] 106 mmol/L Normal 98-107 [facility] Comment on above: Performed By: #### G LULS #### Point of Care testing , CO2 [Moles/Vol] 24.9 mmol/L Normal 21.0-31.0 [facility] Comment on above: Performed By: #### G LULS #### Point of Care testing , Creatinine [Mass/Vol] 1.20 mg/dL Normal 0.70-1.30 [facility] Comment on above: Performed By: #### G LULS #### Point of Care testing , Creatinine Clr Calc Pharmacy 82.31 Normal [facility] Comment on above: Result Comment: PERF ORMED BY: [facility] [address] [place] [address] PATHOLOGIST RAILROAD TRACK REPAIR SUPERVISOR FARRAH PAUL M.D. Performed By: #### G LULS #### Point of Care testing , GFR/1.73 sq M.predicted MDRD (S/P/Bld) [Vol rate/Area] mL/min/{1.73_m2} Normal [facility] Comment on above: Performed By: #### G LULS #### Point of Care testing , Glucose [Mass/Vol] 181 mg/dL High 70-100 [facility] Comment on above: Result Comment: [place] Glucose Reference Range is dependent on time and content of last meal. Glucose of more than 200 mg/dL in a nonstressed, ambulatory subject supports the diagnosis of Diabetes Mellitus. ADA recommended reference range Performed By: #### G LULS #### Point of Care testing , Potassium [Moles/Vol] 4.4 mmol/L Normal 3.5-5.1 [facility] Comment on above: Performed By: #### G LULS #### Point of Care testing , Sodium [Moles/Vol] 135 mmol/L Low 136-145 [facility] Comment on above: Performed By: #### G LULS #### Point of Care testing , Urea nitrogen [Mass/Vol] 18 mg/dL Normal 7-25 [facility] Comment on above: Performed By: #### G LULS #### Point of Care testing , Complete Blood Count Auto Di ffon 02-09-2023 Basophils (Bld) [#/Vol] 0.1 10*3/uL Normal 0.0-0.2 [facility] Comment on above: Result Comment: PERF ORMED BY: [place] [address] [place] [address] PATHOLOGIST RAILROAD TRACK REPAIR SUPERVISOR FARRAH PAUL M.D. Performed By: #### G LULS #### Point of Care testing , Basophils/100 WBC (Bld) 1.1 % Normal . [facility] Comment on above: Performed By: #### G LULS #### Point of Care testing , Eosinophils (Bld) [#/Vol] 0.6 10*3/uL High 0.0-0.45 [facility] Comment on above: Performed By: #### G LULS #### Point of Care testing , Eosinophils/100 WBC (Bld) 5.6 % Normal . [facility] Comment on above: Performed By: #### G LULS #### Point of Care testing , Erythrocyte distribution width (RBC) [Ratio] 15.0 % High 12.0-14.8 [facility] Comment on above: Performed By: #### G LULS #### Point of Care testing , Hematocrit (Bld) [Volume fraction] 24.1 % Low 38.8-50.0 [facility] Comment on above: Performed By: #### G LULS #### Point of Care testing , Hemoglobin (Bld) [Mass/Vol] 7.8 g/dL Low 13.0-17.0 [facility] Comment on above: Performed By: #### G LULS #### Point of Care testing , Lymphocytes (Bld) [#/Vol] 1.3 10*3/uL Normal 1.00-4.8 [facility] Comment on above: Performed By: #### G LULS #### Point of Care testing , Lymphocytes/100 WBC (Bld) 11.7 % Normal . [facility] Comment on above: Performed By: #### G LULS #### Point of Care testing , MCH (RBC) [Entitic mass] 25.6 pg Low 27.5-35.2 [facility] Comment on above: Performed By: #### G LULS #### Point of Care testing , MCV (RBC) [Entitic vol] 78.8 fL Low 83.5-101 [facility] Comment on above: Performed By: #### G LULS #### Point of Care testing , Mean Corpuscular HGB Conc 32.5 g/dL Normal 32.5-35.6 [facility] Comment on above: Performed By: #### G LULS #### Point of Care testing , Monocytes (Bld) [#/Vol] 0.7 10*3/uL Normal 0.0-0.8 [facility] Comment on above: Performed By: #### G LULS #### Point of Care testing , Monocytes/100 WBC (Bld) 6.5 % Normal . [facility] Comment on above: Performed By: #### G LULS #### Point of Care testing , Neutrophils (Bld) [#/Vol] 8.1 10*3/uL High 1.8-7.7 [facility] Comment on above: Performed By: #### G LULS #### Point of Care testing , Neutrophils/100 WBC (Bld) 75.1 % Normal . [facility] Comment on above: Performed By: #### G LULS #### Point of Care testing , NRBC% 0.0 /100{WBC} Normal 0-0.5 [facility] Comment on above: Performed By: #### G LULS #### Point of Care testing , Platelet mean volume (Bld) [Entitic vol] 6.3 fL Low 6.6-10.1 [facility] Comment on above: Performed By: #### G LULS #### Point of Care testing , Platelets (Bld) [#/Vol] 311 10*3/uL Normal 150-450 [facility] Comment on above: Performed By: #### G LULS #### Point of Care testing , RBC (Bld) [#/Vol] 3.05 10*6/uL Low 3.90-5.60 [facility] Comment on above: Performed By: #### G LULS #### Point of Care testing , WBC (Bld) [#/Vol] 10.8 10*3/uL High 4.1-10.5 [facility] Comment on above: Performed By: #### G LULS #### Point of Care testing , Glucose Poct Glucometerson 1 04-11-2022 Glucose [Mass/Vol] 254 mg/dL Normal [facility] Comment on above: Result Comment: [facility] Glucose Reference Range is dependent on time and content of last meal. Glucose of more than 200 mg/dL in a nonstressed, ambulatory subject supports the diagnosis of Diabetes Mellitus. PERFORMED BY: [place] [address] [place] [address] PATHOLOGIST RAILROAD TRACK REPAIR SUPERVISOR FARRAH PAUL M.D. Performed By: #### G LULS #### Point of Care testing , Glucose [Mass/Vol] 224 mg/dL Normal [facility] Comment on above: Result Comment: [place] om Glucose Reference Range is dependent on time and content of last meal. Glucose of more than 200 mg/dL in a nonstressed, ambulatory subject supports the diagnosis of Diabetes Mellitus. PERFORMED BY: [address] [place] [id number] PATHOLOGIST RAILROAD TRACK REPAIR SUPERVISOR FARRAH PAUL M.D. Performed By: #### G LULS #### Point of Care testing , Glucose [Mass/Vol] 184 mg/dL Normal [facility] Comment on above: Result Comment: [place] om Glucose Reference Range is dependent on time and content of last meal. Glucose of more than 200 mg/dL in a nonstressed, ambulatory subject supports the diagnosis of Diabetes Mellitus. PERFORMED BY: [address] [place] [address] PATHOLOGIST RAILROAD TRACK REPAIR SUPERVISOR FARRAH PAUL M.D. Performed By: #### G LULS #### Point of Care testing , Glucose [Mass/Vol] 159 mg/dL Normal [facility] Comment on above: Result Comment: [place] om Glucose Reference Range is dependent on time and content of last meal. Glucose of more than 200 mg/dL in a nonstressed, ambulatory subject supports the diagnosis of Diabetes Mellitus. PERFORMED BY: [address] [place] [id number] PATHOLOGIST RAILROAD TRACK REPAIR SUPERVISOR FARRAH PAUL M.D. Performed By: #### G LULS #### Point of Care testing , Hemoglobin and Hematocriton 02-09-2023 Hematocrit (Bld) [Volume fraction] 25.1 % Low 38.8-50.0 [facility] Comment on above: Result Comment: PERF ORMED BY: [address] [place] [id number] PATHOLOGIST RAILROAD TRACK REPAIR SUPERVISOR FARRAH PAUL M.D. Performed By: #### G LULS #### Point of Care testing , Hemoglobin (Bld) [Mass/Vol] 8.2 g/dL Low 13.0-17.0 [facility] Comment on above: Performed By: #### G LULS #### Point of Care testing , US arterial pvr rest Brennen US arterial pvr rest LE [facility] [place] [address] [place] [address] Ultrasound Report Signed Patient: Ganga Stinson MR#: [id number] : 1960 Acct:[id number] Age/Sex: 62 / M ADM Date: 02/06/23 Loc: Room: [address] [place] [address] Type: ADM IN Attending Dr: Suzy Douglas [...] Jesusita Navarro MD02/09/2023 12:18 PM Dictation Location: [facility] Tech: Coni Letty Transcribed By: [facility] 02/09/23 1218 Dictated By: Jesusita Navarro MD 02/09/23 1217 Signed By: 02/09/23 1218 Normal [facility] Basic Metabolic Panelon 11- Anion gap [Moles/Vol] 11.3 mmol/L Normal 6.0-15.0 [facility] Comment on above: Performed By: #### B DONALDO VILLANUEVA, CBC #### [address] Calcium [Mass/Vol] 8.3 mg/dL Low 8.6-10.3 [facility] Comment on above: Performed By: #### B RICH PAB, CBC #### [address] Chloride [Moles/Vol] 110 mmol/L High 98-107 [facility] Comment on above: Performed By: #### B DONALDO VILLANUEVA, CBC #### [address] CO2 [Moles/Vol] 21.0 mmol/L Normal 21.0-31.0 [facility] Comment on above: Performed By: #### B DONALDO VILLANUEVA, CBC #### [address] Creatinine [Mass/Vol] 1.24 mg/dL Normal 0.70-1.30 [facility] Group Comment on above: Performed By: #### B DONALDO VILLANUEVA, CBC #### [address] Creatinine Clr Calc Pharmacy 79.62 Normal [facility] Comment on above: Performed By: #### B DONALDO VILLANUEVA, CBC #### [place] [address] [place] GFR/1.73 sq M.predicted MDRD (S/P/Bld) [Vol rate/Area] mL/min/{1.73_m2} Normal [facility] Comment on above: Performed By: #### B RICH PAB, CBC #### [address] Glucose [Mass/Vol] 86 mg/dL Normal 70-100 [facility] Comment on above: Result Comment: [place] Glucose Reference Range is dependent on time and content of last meal. Glucose of more than 200 mg/dL in a nonstressed, ambulatory subject supports the diagnosis of Diabetes Mellitus. ADA recommended reference range Performed By: #### B MP, PAB, CBC #### [address] Potassium [Moles/Vol] 4.3 mmol/L Normal 3.5-5.1 [facility] Comment on above: Performed By: #### B MP, PAB, CBC #### [address] Sodium [Moles/Vol] 138 mmol/L Normal 136-145 [facility] Comment on above: Performed By: #### B MP, PAB, CBC #### [address] Urea nitrogen [Mass/Vol] 21 mg/dL Normal 7-25 [facility] Comment on above: Performed By: #### B MP, PAB, CBC #### [address] Complete Blood Count Auto Di ffon 02-08-2023 Basophils (Bld) [#/Vol] 0.0 10*3/uL Normal 0.0-0.2 [facility] Comment on above: Result Comment: PERF ORMED BY: [place] [address] PATHOLOGIST RAILROAD TRACK REPAIR SUPERVISOR FARRAH PAUL M.D. Performed By: #### B MP, PAB, CBC #### [place] [address] [place] Basophils/100 WBC (Bld) 0.4 % Normal . [facility] Comment on above: Performed By: #### B MP, PAB, CBC #### [place] [address] [place] Eosinophils (Bld) [#/Vol] 0.6 10*3/uL High 0.0-0.45 [facility] Comment on above: Performed By: #### B MP, PAB, CBC #### [place] [address] [place] Eosinophils/100 WBC (Bld) 5.8 % Normal . [facility] Comment on above: Performed By: #### B MP, PAB, CBC #### [address] Erythrocyte distribution width (RBC) [Ratio] 15.2 % High 12.0-14.8 [facility] Comment on above: Performed By: #### B MP, PAB, CBC #### [address] Hematocrit (Bld) [Volume fraction] 25.0 % Low 38.8-50.0 [facility] Comment on above: Performed By: #### B MP, PAB, CBC #### [address] Hemoglobin (Bld) [Mass/Vol] 8.1 g/dL Low 13.0-17.0 [facility] Comment on above: Performed By: #### B MP, PAB, CBC #### [address] Lymphocytes (Bld) [#/Vol] 1.5 10*3/uL Normal 1.00-4.8 [facility] Comment on above: Performed By: #### B MP, PAB, CBC #### [address] Lymphocytes/100 WBC (Bld) 14.3 % Normal . [facility] Comment on above: Performed By: #### B MP, PAB, CBC #### [address] MCH (RBC) [Entitic mass] 25.5 pg Low 27.5-35.2 [facility] Comment on above: Performed By: #### B MP, PAB, CBC #### [address] MCV (RBC) [Entitic vol] 78.6 fL Low 83.5-101 [facility] Comment on above: Performed By: #### B MP, PAB, CBC #### [address] Mean Corpuscular HGB Conc 32.5 g/dL Normal 32.5-35.6 [facility] Comment on above: Performed By: #### B MP, PAB, CBC #### [address] Monocytes (Bld) [#/Vol] 0.9 10*3/uL High 0.0-0.8 [facility] Comment on above: Performed By: #### B MP, PAB, CBC #### [address] Monocytes/100 WBC (Bld) 9.0 % Normal . [facility] Comment on above: Performed By: #### B MP, PAB, CBC #### [address] Neutrophils (Bld) [#/Vol] 7.3 10*3/uL Normal 1.8-7.7 [facility] Comment on above: Performed By: #### B MP, PAB, CBC #### [address] Neutrophils/100 WBC (Bld) 70.5 % Normal . [facility] Comment on above: Performed By: #### B MP, PAB, CBC #### [address] NRBC% 0.0 /100{WBC} Normal 0-0.5 [facility] Comment on above: Performed By: #### B MP, PAB, CBC #### [place] [address] [place] Platelet mean volume (Bld) [Entitic vol] 6.5 fL Low 6.6-10.1 [facility] Comment on above: Performed By: #### B MP, PAB, CBC #### [facility] [address] [place] [address] [place] Platelets (Bld) [#/Vol] 308 10*3/uL Normal 150-450 [facility] Comment on above: Performed By: #### B MP, PAB, CBC #### [place] [address] [place] RBC (Bld) [#/Vol] 3.18 10*6/uL Low 3.90-5.60 [facility] Comment on above: Performed By: #### B RICH, DONALDO, CBC #### [facility] [address] WBC (Bld) [#/Vol] 10.4 10*3/uL Normal 4.1-10.5 [facility] Comment on above: Performed By: #### B RICH, DONALDO, CBC #### [address] Glucose Poct Glucometerson 1 04-10-2022 Glucose [Mass/Vol] 202 mg/dL Normal [facility] Comment on above: Result Comment: [place] Glucose Reference Range is dependent on time and content of last meal. Glucose of more than 200 mg/dL in a nonstressed, ambulatory subject supports the diagnosis of Diabetes Mellitus. PERFORMED BY: [place] [address] PATHOLOGIST RAILROAD TRACK REPAIR SUPERVISOR FARRAH PAUL M.D. Performed By: #### G LULS #### Point of Care testing , Glucose [Mass/Vol] 192 mg/dL Normal [facility] Comment on above: Result Comment: [place] Glucose Reference Range is dependent on time and content of last meal. Glucose of more than 200 mg/dL in a nonstressed, ambulatory subject supports the diagnosis of Diabetes Mellitus. PERFORMED BY: [place] [address] PATHOLOGIST RAILROAD TRACK REPAIR SUPERVISOR FARRAH PAUL M.D. Performed By: #### G LULS #### Point of Care testing , Commemt1 Glu2: Cleaned Meter Normal [facility] Comment on above: Result Comment: PERF ORMED BY: [place] [address] PATHOLOGIST RAILROAD TRACK REPAIR SUPERVISOR FARRAH PAUL M.D. Performed By: #### G LULS #### Point of Care testing , Glucose [Mass/Vol] 184 mg/dL Normal [facility] Comment on above: Result Comment: [place] om Glucose Reference Range is dependent on time and content of last meal. Glucose of more than 200 mg/dL in a nonstressed, ambulatory subject supports the diagnosis of Diabetes Mellitus. Performed By: #### G LULS #### Point of Care testing , Commemt1 Glu2: Cleaned Meter Normal [facility] Comment on above: Result Comment: PERF ORMED BY: [place] [address] PATHOLOGIST RAILROAD TRACK REPAIR SUPERVISOR FARRAH PAUL M.D. Performed By: #### G LULS #### Point of Care testing , Glucose [Mass/Vol] 95 mg/dL Normal [facility] Comment on above: Result Comment: [place] om Glucose Reference Range is dependent on time and content of last meal. Glucose of more than 200 mg/dL in a nonstressed, ambulatory subject supports the diagnosis of Diabetes Mellitus. Performed By: #### G LULS #### Point of Care testing , MR foot LT wo conon 02-09-20 MR foot LT wo con [facility] Main [place] [id number] MRI Report Signed Patient: Ganga Stinson MR#: [id number] : 1960 Acct:[id number] Age/Sex: 62 / M ADM Date: 02/06/23 Loc: Room: [address] [place] [address] Type: ADM IN Attending Dr: Suzy Douglas [...] Canelo Red M.D.02/08/2023 2:39 PM Dictation Location: [place] [address] Transcribed By: MARYANN 02/08/23 1435 Dictated By: Canelo Red II, MD 02/08/23 1429 Signed By: 02/08/23 1439 Normal [facility] Prealbuminon 02-08-2023 Prealbumin [Mass/Vol] 4.5 mg/dL Low 17.0-34.0 [facility] Comment on above: Result Comment: PERF ORMED BY: [place] [address] PATHOLOGIST RAILROAD TRACK REPAIR SUPERVISOR FARRAH PAUL M.D. Performed By: #### B MP, PAB, CBC #### [facility] [address] Basic Metabolic Panelon 01-27 Anion gap [Moles/Vol] 10.9 mmol/L Normal 6.0-15.0 [facility] Comment on above: Performed By: #### G LULS #### Point of Care testing , Calcium [Mass/Vol] 8.0 mg/dL Low 8.6-10.3 [facility] Comment on above: Performed By: #### G LULS #### Point of Care testing , Chloride [Moles/Vol] 109 mmol/L High 98-107 [facility] Comment on above: Performed By: #### G LULS #### Point of Care testing , CO2 [Moles/Vol] 20.0 mmol/L Low 21.0-31.0 [facility] Comment on above: Performed By: #### G LULS #### Point of Care testing , Creatinine [Mass/Vol] 1.37 mg/dL High 0.70-1.30 [facility] Comment on above: Performed By: #### G LULS #### Point of Care testing , Creatinine Clr Calc Pharmacy 73.19 Normal [facility] Comment on above: Performed By: #### G LULS #### Point of Care testing , GFR/1.73 sq M.predicted MDRD (S/P/Bld) [Vol rate/Area] 58.689 mL/min/{1.73_m2} Normal [facility] Comment on above: Performed By: #### G LULS #### Point of Care testing , Glucose [Mass/Vol] 69 mg/dL Low 70-100 [facility] Comment on above: Result Comment: [place] Glucose Reference Range is dependent on time and content of last meal. Glucose of more than 200 mg/dL in a nonstressed, ambulatory subject supports the diagnosis of Diabetes Mellitus. ADA recommended reference range Performed By: #### G LULS #### Point of Care testing , Potassium [Moles/Vol] 3.9 mmol/L Normal 3.5-5.1 [facility] Comment on above: Performed By: #### G LULS #### Point of Care testing , Sodium [Moles/Vol] 136 mmol/L Normal 136-145 [facility] Comment on above: Performed By: #### G LULS #### Point of Care testing , Urea nitrogen [Mass/Vol] 25 mg/dL Normal 7-25 [facility] Comment on above: Performed By: #### G LULS #### Point of Care testing , Anion gap [Moles/Vol] 9.4 mmol/L Normal 6.0-15.0 [facility] Comment on above: Performed By: #### G LULS #### Point of Care testing , Calcium [Mass/Vol] 8.0 mg/dL Low 8.6-10.3 [facility] Comment on above: Performed By: #### G LULS #### Point of Care testing , Chloride [Moles/Vol] 109 mmol/L High 98-107 [facility] Comment on above: Performed By: #### G LULS #### Point of Care testing , CO2 [Moles/Vol] 20.6 mmol/L Low 21.0-31.0 [facility] Comment on above: Performed By: #### G LULS #### Point of Care testing , Creatinine [Mass/Vol] 1.43 mg/dL High 0.70-1.30 [facility] Comment on above: Performed By: #### G LULS #### Point of Care testing , Creatinine Clr Calc Pharmacy 70.27 Normal [facility] Comment on above: Result Comment: PERF ORMED BY: [address] [address] PATHOLOGIST RAILROAD TRACK REPAIR SUPERVISOR FARRAH PAUL M.D. Performed By: #### G LULS #### Point of Care testing , GFR/1.73 sq M.predicted MDRD (S/P/Bld) [Vol rate/Area] 55.746 mL/min/{1.73_m2} Normal [facility] Comment on above: Performed By: #### G LULS #### Point of Care testing , Glucose [Mass/Vol] 136 mg/dL High 70-100 [facility] Comment on above: Result Comment: [facility] Glucose Reference Range is dependent on time and content of last meal. Glucose of more than 200 mg/dL in a nonstressed, ambulatory subject supports the diagnosis of Diabetes Mellitus. ADA recommended reference range Performed By: #### G LULS #### Point of Care testing , Potassium [Moles/Vol] 4.0 mmol/L Normal 3.5-5.1 [facility] Comment on above: Performed By: #### G LULS #### Point of Care testing , Sodium [Moles/Vol] 135 mmol/L Low 136-145 [facility] Comment on above: Performed By: #### G LULS #### Point of Care testing , Urea nitrogen [Mass/Vol] 27 mg/dL High 7-25 [facility] Comment on above: Performed By: #### G LULS #### Point of Care testing , C-Reactive Proteinon 023 C-Reactive Protein 18.3 mg/dL High 0.0-0.5 [facility] Comment on above: Result Comment: PERF ORMED BY: [address] [place] [address] PATHOLOGIST RAILROAD TRACK REPAIR SUPERVISOR FARRAH PAUL M.D. Performed By: #### G LULS #### Point of Care testing , Complete Blood Count Auto Di ffon 02-07-2023 Basophils (Bld) [#/Vol] 0.0 10*3/uL Normal 0.0-0.2 [facility] Comment on above: Result Comment: PERF ORMED BY: [address] [place] [address] PATHOLOGIST RAILROAD TRACK REPAIR SUPERVISOR FARRAH PAUL M.D. Performed By: #### G LULS #### Point of Care testing , Basophils/100 WBC (Bld) 0.3 % Normal . [facility] Comment on above: Performed By: #### G LULS #### Point of Care testing , Eosinophils (Bld) [#/Vol] 0.6 10*3/uL High 0.0-0.45 [facility] Comment on above: Performed By: #### G LULS #### Point of Care testing , Eosinophils/100 WBC (Bld) 5.2 % Normal . [facility] Comment on above: Performed By: #### G LULS #### Point of Care testing , Erythrocyte distribution width (RBC) [Ratio] 14.8 % Normal 12.0-14.8 [facility] Comment on above: Performed By: #### G LULS #### Point of Care testing , Hematocrit (Bld) [Volume fraction] 21.3 % Low 38.8-50.0 [facility] Comment on above: Performed By: #### G LULS #### Point of Care testing , Hemoglobin (Bld) [Mass/Vol] 6.9 g/dL Low 13.0-17.0 [facility] Comment on above: Performed By: #### G LULS #### Point of Care testing , Lymphocytes (Bld) [#/Vol] 1.6 10*3/uL Normal 1.00-4.8 [facility] Comment on above: Performed By: #### G LULS #### Point of Care testing , Lymphocytes/100 WBC (Bld) 13.5 % Normal . [facility] Comment on above: Performed By: #### G LULS #### Point of Care testing , MCH (RBC) [Entitic mass] 25.4 pg Low 27.5-35.2 [facility] Comment on above: Performed By: #### G LULS #### Point of Care testing , MCV (RBC) [Entitic vol] 78.4 fL Low 83.5-101 [facility] Comment on above: Performed By: #### G LULS #### Point of Care testing , Mean Corpuscular HGB Conc 32.4 g/dL Low 32.5-35.6 [facility] Comment on above: Performed By: #### G LULS #### Point of Care testing , Monocytes (Bld) [#/Vol] 1.1 10*3/uL High 0.0-0.8 [facility] Comment on above: Performed By: #### G LULS #### Point of Care testing , Monocytes/100 WBC (Bld) 9.6 % Normal . [facility] Comment on above: Performed By: #### G LULS #### Point of Care testing , Neutrophils (Bld) [#/Vol] 8.3 10*3/uL High 1.8-7.7 [facility] Comment on above: Performed By: #### G LULS #### Point of Care testing , Neutrophils/100 WBC (Bld) 71.4 % Normal . [facility] Comment on above: Performed By: #### G LULS #### Point of Care testing , NRBC% 0.0 /100{WBC} Normal 0-0.5 [facility] Comment on above: Performed By: #### G LULS #### Point of Care testing , Platelet mean volume (Bld) [Entitic vol] 6.5 fL Low 6.6-10.1 [facility] Comment on above: Performed By: #### G LULS #### Point of Care testing , Platelets (Bld) [#/Vol] 276 10*3/uL Normal 150-450 [facility] Comment on above: Performed By: #### G LULS #### Point of Care testing , RBC (Bld) [#/Vol] 2.71 10*6/uL Low 3.90-5.60 [facility] Comment on above: Performed By: #### G LULS #### Point of Care testing , WBC (Bld) [#/Vol] 11.7 10*3/uL High 4.1-10.5 [facility] Comment on above: Performed By: #### G LULS #### Point of Care testing , Glucose Poct Glucometerson 1 04-09-2022 Commemt1 Glu2: Cleaned Meter Normal [facility] Comment on above: Result Comment: PERF ORMED BY: [place] [address] PATHOLOGIST RAILROAD TRACK REPAIR SUPERVISOR FARRAH PAUL M.D. Performed By: #### G LULS #### Point of Care testing , Glucose [Mass/Vol] 177 mg/dL Normal [facility] Comment on above: Result Comment: [place] om Glucose Reference Range is dependent on time and content of last meal. Glucose of more than 200 mg/dL in a nonstressed, ambulatory subject supports the diagnosis of Diabetes Mellitus. Performed By: #### G LULS #### Point of Care testing , Commemt1 Glu2: Cleaned Meter Normal [facility] Comment on above: Result Comment: PERF ORMED BY: [place] [address] PATHOLOGIST RAILROAD TRACK REPAIR SUPERVISOR FARRAH PAUL M.D. Performed By: #### G LULS #### Point of Care testing , Glucose [Mass/Vol] 140 mg/dL Normal [facility] Comment on above: Result Comment: [place] om Glucose Reference Range is dependent on time and content of last meal. Glucose of more than 200 mg/dL in a nonstressed, ambulatory subject supports the diagnosis of Diabetes Mellitus. Performed By: #### G LULS #### Point of Care testing , Commemt1 Glu2: Cleaned Meter Normal [facility] Comment on above: Result Comment: PERF ORMED BY: [address] [place] [address] PATHOLOGIST RAILROAD TRACK REPAIR SUPERVISOR FARRAH PAUL M.D. Performed By: #### G LULS #### Point of Care testing , Glucose [Mass/Vol] 136 mg/dL Normal [facility] Comment on above: Result Comment: [place] om Glucose Reference Range is dependent on time and content of last meal. Glucose of more than 200 mg/dL in a nonstressed, ambulatory subject supports the diagnosis of Diabetes Mellitus. Performed By: #### G LULS #### Point of Care testing , Glucose [Mass/Vol] 81 mg/dL Normal [facility] Comment on above: Result Comment: [place] Glucose Reference Range is dependent on time and content of last meal. Glucose of more than 200 mg/dL in a nonstressed, ambulatory subject supports the diagnosis of Diabetes Mellitus. PERFORMED BY: [address] [place] [place] [address] PATHOLOGIST RAILROAD TRACK REPAIR SUPERVISOR FARRAH PAUL M.D. Performed By: #### G LULS #### Point of Care testing , Glucose [Mass/Vol] 167 mg/dL Normal [facility] Comment on above: Result Comment: [facility] Glucose Reference Range is dependent on time and content of last meal. Glucose of more than 200 mg/dL in a nonstressed, ambulatory subject supports the diagnosis of Diabetes Mellitus. PERFORMED BY: [address] [place] [place] [address] PATHOLOGIST RAILROAD TRACK REPAIR SUPERVISOR FARRAH PAUL M.D. Performed By: #### G LULS #### Point of Care testing , Hemoglobin and Hematocriton 02-07-2023 Hematocrit (Bld) [Volume fraction] 22.1 % Low 38.8-50.0 [facility] Comment on above: Result Comment: PERF ORMED BY: [address] [place] [address] PATHOLOGIST RAILROAD TRACK REPAIR SUPERVISOR FARRAH PAUL M.D. Performed By: #### G LULS #### Point of Care testing , Hemoglobin (Bld) [Mass/Vol] 7.1 g/dL Low 13.0-17.0 [facility] Comment on above: Performed By: #### G [...] RESISTANT TO ALL B-LACTAM DRUGS. PERFORMED BY: [address] [place] [address] PATHOLOGIST RAILROAD TRACK REPAIR SUPERVISOR FARRAH PAUL M.D. Normal [facility] Comment on above: Performed By: #### G [...] RESISTANT TO ALL B-LACTAM DRUGS. PERFORMED BY: [facility] [place] [address] PATHOLOGIST RAILROAD TRACK REPAIR SUPERVISOR FARRAH PAUL M.D. Normal [facility] Comment on above: Performed By: #### G LULS #### Point of Care testing , Ambulatory [...] you for choosing us for your care. [facility] Operative Reporton Operative Report [id number]#1.00TIFF [facility] Pre-Certification Formon Pre-Certification Form [id number]#1.00TIFF [facility] Insurance Correspondenceon 0 12-25-2022 Insurance Correspondence [id number]#1.00CD:127 [facility] Consent for Procedure/Surger yon 12-22-2022 Consent for Procedure/Surgery [id number]#1.00CD:127 [facility] Lab Reportson 11-10-2022 Lab Reports [id number]#1.00CD:127 [facility] RAD - Ultrasound Reporton RAD - Ultrasound Report [id number]#1.00CD:127 [facility] Ambulatory Visit Summaryon 0 11-09-2022 Ambulatory Visit Summary GANGA STINSON :1960 Visit Date:11/09/2022 Ambulatory Visit Instructions Your Diagnosis Urinary retention Urethral stricture in male Neurogenic bladder Your Care Team Attending Physician - ALLEN NAZARIO, Parvin Christie Primary Care Physician - FIDEL ABBOTT MD This Is Your Medications List Contact prescribing [...] Following Appointments Follow Up with ALLEN NAZARIO, FUNMILAYO Romero When: Comments: sched cysto Where: [facility] [address] , [place] [address] [phone] Medications What How Much When Instructions Unchanged [...] these instructions at home: Medicines ? Take anme-ssg-usftxbi and prescription medicines only as told by your heal (more content not included)... Normal [facility] Patient Educationon 11-10-19 Patient Education Urology [...] these instructions at home: Medicines ? Take pltu-gti-yhjtwwn and prescription medicines only as told by [...] provider. Document Revised: 12/04/2020 Document Reviewed: 12/04/2020 [employer] Patient Education ? 2022 [employer] [facility] Urology Office/Clinic Noteon 11-09-2022 Urology Office/Clinic Note HPI Staff Follow up to hospital consult 10/08/2022 due to cath insertion S/P cysto UD cath insertion 10/08/2022.... Pt is a new Pt last seen in our office 02/25/[address] Crockett due to NGB incomplete bladder and BPH Pt has been seeing Dr. Clarke ( [facility])for the last couple years last seen 08/04/2022 Pt is a paraplegic CIC 3-4 times a day for past 6-7 years S/P DVIU [address] Vince WORLEY 09/19/2022 C&S negative 09/25/2022 Denies visible blood [...] bladder. Pt was seen in consult at [facility] on 10/08/22 for difficulty with catheter [...] Will order Local anesthesia. Abx sent to [facility] in [place]. 2. Urethral stricture in male (N35.919: Unspecified urethral stricture, male, unspecified site) S/p Urethrotomy done 07/07/[address] Nagy. S/p Cysto/UD done 10/08/22. Pt understands urethral stricture may return and a dilation may need repeated. 3. Neurogenic bladder (N31.9: Neuromuscular dysfunction of bladder, unspecified) See #1 Follow-up With When Contact Information ALLEN NAZARIO, Parvin Christie, URL [facility] [address], [place] [address] [phone] Additional Instructions: sched cysto Patient Education Acute Urinary Retention, Male I, Dia Serrato, personally scribed for Dr. Villa on 11/09/2022 14:09:09. . Documentation recorded by the scribeDia, accurately reflects the services(s) I performed and [...] influenza virus vaccine, inactivated 04/10/2017 Recorded 2022-11-09: VIS DATE: 11/02/2014 influenza vir (more content not included)... [facility] Comment on above: Result Comment: Elec tronically Signed By: Parvin VILLA MD\.br\Date and Time Signed: 11/09/22 14:10 EDT\.br\Electronically Co-Signed By: Dia Serrato\.br\Date and Time Co-Signed: 11/09/22 14:09 EDT Lab Reportson 10-12-2022 Lab Reports [id number]#1.00CD:127 [facility] Lab Reports [id number]#1.00CD:127 [facility] Lab Reports [id number]:127 [facility] Lab Reports [id number]#1.00CD:127 [facility] Lab Reports [id number]#1.00CD:127 [facility] Consultation Noteon 10-10-19 Consultation Note [id number]#1.00CD:127 [facility] Insurance Correspondence Off iceon 10-09-2022 Insurance Correspondence Office [id number]#1.00CD:127 [facility] Lab Reportson 10-09-2022 Lab Reports [id number]#1.00CD:[address] [facility] Lab Reports [id number]#1.00CD:[address] [facility] Lab Reports [id number]#1.00CD:[address] [facility] Operative Reporton Operative Report [id number]#1.00CD:[address] [facility] Cult,Urineon 09-26-2022 Cult,Urine Specimen Description .CLEAN CATCH URINE Culture NO SIGNIFICANT GROWTH Report Status FINAL 09/26/2022 Normal [facility] Comment on above: Performed By: #### C MPX, CDP #### [facility] [address] [place] [address] Ice Skating Coach: Khadar Tang MD US RENAL COMPLETEon 09-20-19 [...] Alexander Mcclain DO 09/19/22 Final result Normal [facility] Unremarkable ultraso und of the kidneys and urinary bladder. [facility] EXAMINATION: RETROPERITONEAL ULTRASOUND OF THE KIDNEYS [...] the bladder. No significant post void residual. [facility] Alexander Mcclain DO - 09/19/2022 EXAMINATION: [...] ultrasound of the kidneys and urinary bladder. [facility] US RENAL COMPLETEOrdered By: Alexander Mcclain on 09-19-2022 [facility] Work Phone: Basic Metabolic Profon 09-18 Anion gap [Moles/Vol] 10 mmol/L Normal 9-17 [facility] Comment on above: Performed By: #### B MP #### [facility] [address] [place] [address] Ice Skating Coach: Khadar Tang MD BUN/CRE Ratio 26 High 9-20 [facility] Comment on above: Performed By: #### B MP #### [facility] [address] [place] [address] Ice Skating Coach: Khadar Tang MD Calcium [Mass/Vol] 9.3 mg/dL Normal 8.6-10.4 [facility] Comment on above: Performed By: #### B MP #### [facility] [address] [place] [id number] Ice Skating Coach: Khadar Tang MD Chloride [Moles/Vol] 105 mmol/L Normal 98-107 [facility] Comment on above: Performed By: #### B MP #### [facility] [address] [place] [address] Ice Skating Coach: Khadar Tang MD CO2 [Moles/Vol] 22 mmol/L Normal 20-31 [facility] Comment on above: Performed By: #### B MP #### [facility] [address] [place] [address] Ice Skating Coach: Khadar Tang MD Creatinine [Mass/Vol] 1.25 mg/dL High 0.70-1.20 [facility] Comment on above: Performed By: #### B MP #### [facility] [address] [place] [address] Ice Skating Coach: Khadar Tang MD GFR/1.73 sq M.predicted among non-blacks MDRD (S/P/Bld) [Vol rate/Area] mL/min/{1.73_m2} Normal >60 [facility] Comment on above: Result Comment: These [...] Performed By: #### B MP #### [facility] [address] [place] [address] Ice Skating Coach: Khadar Tang MD Glucose [Mass/Vol] 186 mg/dL High 70-99 [facility] Comment on above: Performed By: #### B MP #### [facility] [address] [place] [address] Ice Skating Coach: Khadar Tang MD Potassium [Moles/Vol] 4.1 mmol/L Normal 3.7-5.3 [facility] Comment on above: Performed By: #### B MP #### [facility] [address] [place] [address] Ice Skating Coach: Khadar Tang MD Sodium [Moles/Vol] 137 mmol/L Normal 135-144 [facility] Comment on above: Performed By: #### B MP #### [facility] [address] [place] [address] Ice Skating Coach: Khadar Tang MD Urea nitrogen [Mass/Vol] 32 mg/dL High 8-23 [facility] Comment on above: Performed By: #### B MP #### [address] [place] [address] Ice Skating Coach: Khadar Tang MD RENAL COMPLETEon 09-19-19 Radiology Study observation (narrative) [facility] Aerobic Cultureon 09-08-2022 Aerobic Culture ORGANISM: Strep dysgalactiae (O:STRDYS) Comments Organism Not Routinely Tested for Susceptibilities Quantity of Growth Light Growth No Anaerobes Isolated 3 Days Gram Stain Result No Bacteria Seen PERFORMED BY: [facility] [address] [place] [address] PATHOLOGIST [employer]ILROAD TRACK REPAIR SUPERVISOR FARRAH PAUL M.D. Normal [facility] Comment on above: Performed By: #### G LULS #### Point of Care testing , Hemoglobin A1Con 2022 Glucose [Mass/Vol] 171 mg/dL Normal [facility] Comment on above: Result Comment: The ADA and AACC recommend providing the estimated average glucose result to permit better patient understanding of their HBA1c result. Performed By: #### G LYHGB #### [facility] [employer] [address] [place] [id number] Ice Skating Coach: Jeff Casanova MD HbA1c (Bld) [Mass fraction] 7.6 % High 4.0-6.0 [facility] Comment on above: Performed By: #### G LYHGB #### [facility] [employer] [address] [place] [address] [id number] Ice Skating Coach: Jeff Casanova MD OPERATIVE REPORTon 3 OPERATIVE REPORT [address] [address] OPERATIVE REPORT PATIENT NAME: GANGA STINSON : 1960 MED REC NO: [id number] ROOM: ACCOUNT NO: [id number] ADMIT DATE: 2022 PROVIDER: Angeles Nagy DATE OF PROCEDURE: 2022 SURGEON: Dr. Angeles Nagy. BANKING MANAGER: None. PREOPERATIVE DIAGNOSES: 1. Neurogenic bladder. 2. Urethral stricture. POSTOPERATIVE DIAGNOSES: 1. Neurogenic bladder. 2. Urethral stricture. PROCEDURE PERFORMED: Direct visual internal urethrotomy. ANESTHESIA: General. COMPLICATIONS: None. ESTIMATED BLOOD LOSS: Minimal. SPECIMENS: None. PROSTHESIS: An 18-Saudi Arabian Rowe catheter. DISPOSITION: Stable. FINDINGS: Bulbous urethral stricture. 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 DESCRIPTION OF PROCEDURE: The patient was taken back to the operating room after informed consent including all risks, benefits, and alternatives were obtained. The patient was transferred from the [facility] onto the operating room table, where he was induced under general anesthesia and given IV Ancef for preoperative antibiotic prophylaxis. To begin the case, he was prepped and draped in the normal sterile fashion and placed in dorsal lithotomy. He had a 21-Saudi Arabian sheath with a 30-degree lens passed through [...] then removed the scope and inserted an 18-[place] Rowe catheter with ease. He was then awoken from general anesthesia, transferred to the [facility], and taken to the PACU in satisfactory condition by Nursing and Anesthesia Teams. PLAN: The patient will be discharged home per PACU criterion and follow up with me in one week for Rowe catheter removal. ANGELES NAGY [place]/Jerry_CAPRICEIS_I Doc#: [id number] CC: Normal [facility] Basic Metabolic Panelon 04-0 Anion gap [Moles/Vol] 10 mmol/L 9 - 17 mmol/L [facility] Calcium [Mass/Vol] 8.8 mg/dL 8.6 - 10. 4 mg/dL [facility] Chloride [Moles/Vol] 106 mmol/L 98 - 107 mmol/L [facility] CO2 [Moles/Vol] 24 mmol/L 20 - 31 mmol/L [facility] Creatinine [Mass/Vol] 1.3 mg/dL High 0.70 - 1.20 mg/dL [facility] GFR/1.73 sq M.predicted MDRD (S/P/Bld) [Vol rate/Area] - PINF [facility] Comment on above: These results are [...] 250 mg/dL High 70 - 99 mg/dL [facility] Interpretation and review of laboratory results Abnormal [facility] Potassium [Moles/Vol] 4.0 mmol/L 3.7 - 5.3 mmol/L [facility] Sodium [Moles/Vol] 140 mmol/L 135 - 144 mmol/L [facility] Urea nitrogen [Mass/Vol] 29 mg/dL High 8 - 23 mg/dL [facility] Urea nitrogen/Creatinin e (Bld) [Mass ratio] 22 High 9 - 20 [facility] Basic Metabolic Profon 07-02 Anion gap [Moles/Vol] 10 mmol/L Normal -17 [facility] Comment on above: Performed By: #### C MPX, CDP #### [facility] [address] [place] [address] Ice Skating Coach: Khadar Tang MD BUN/CRE Ratio 22 High 9-20 [facility] Comment on above: Performed By: #### C MPX, CDP #### [facility] [address] [place] [address] Ice Skating Coach: Khadar Tang MD Calcium [Mass/Vol] 8.8 mg/dL Normal 8.6-10.4 [facility] Comment on above: Performed By: #### C MPX, CDP #### [facility] [address] [place] [address] Ice Skating Coach: Khadar Tang MD Chloride [Moles/Vol] 106 mmol/L Normal 98-107 [facility] Comment on above: Performed By: #### C MPX, CDP #### [facility] [address] [place] [address] Ice Skating Coach: Khadar Tang MD CO2 [Moles/Vol] 24 mmol/L Normal 20-31 [facility] Comment on above: Performed By: #### C MPX, CDP #### [facility] [address] [place] [address] Ice Skating Coach: Khadar Tang MD Creatinine [Mass/Vol] 1.30 mg/dL High 0.70-1.20 [facility] Comment on above: Performed By: #### C MPX, CDP #### [facility] [address] [place] [address] Ice Skating Coach: Khadar Tang MD GFR/1.73 sq M.predicted among non-blacks MDRD (S/P/Bld) [Vol rate/Area] mL/min/{1.73_m2} Normal >60 [facility] Comment on above: Result Comment: These [...] By: #### C MPX, CDP #### [facility] [address] [place] [address] Ice Skating Coach: Khadar Tang MD Glucose [Mass/Vol] 250 mg/dL High 70-99 [facility] Comment on above: Performed By: #### C MPX, CDP #### [facility] [address] [place], [place] [phone] Ice Skating Coach: hKadar Tang MD Potassium [Moles/Vol] 4.0 mmol/L Normal 3.7-5.3 [facility] Comment on above: Performed By: #### C MPX, CDP #### [facility] [address] [place], [place] [id number] Ice Skating Coach: Khadar Tang MD Sodium [Moles/Vol] 140 mmol/L Normal 135-144 [facility] Comment on above: Performed By: #### C MPX, CDP #### [facility] [address] [place] [address] Ice Skating Coach: Khadar Tang MD Urea nitrogen [Mass/Vol] 29 mg/dL High 8-23 [facility] Comment on above: Performed By: #### C MPX, CDP #### [facility] [address] [place] [address] Ice Skating Coach: Khadar Tang MD CBC with Auto Differentialon 07-02-2022 Absolute Eos # 0.80 High [facility] Absolute Immature Granulocyte 0.06 [facility] Absolute Lymph # 1.38 [facility] Absolute [place] # 0.81 [facility] Basophils Absolute [facility] Basophils/100 WBC (Bld) 0 % 0 - 2 % [facility] Eosinophils/100 WBC (Bld) 7 % High 1 - 4 % [facility] Hematocrit (Bld) [Volume fraction] 26.8 % Low 40.7 - 50.3 % [facility] Hemoglobin (Bld) [Mass/Vol] 7.9 g/dL Low 13.0 - 17.0 g/dL [facility] Immature granulocytes/100 WBC (Bld) 1 % High 0 [facility] Interpretation and review of laboratory results Abnormal [facility] Lymphocytes/100 WBC (Bld) 13 % Low 24 - 43 % [facility] MCH (RBC) [Entitic mass] 23.3 pg Low 25.2 - 33.5 pg [facility] MCHC (RBC) [Mass/Vol] 29.5 g/dL 28.4 - 34.8 g/dL [facility] MCV (RBC) [Entitic vol] 79.1 fL Low 82.6 - 102.9 fL [facility] Monocytes/100 WBC (Bld) 8 % 3 - 12 % [facility] NRBC Automated 0.0 0.0 per 100 WBC [facility] Platelet distribution width (Bld) [Ratio] 16.1 % High 11.8 - 14.4 % [facility] Platelet mean volume (Bld) [Entitic vol] 9.1 fL 8.1 - 13.5 fL [facility] Platelets (Bld) [#/Vol] 241 10*3/uL [facility] RBC (Bld) [#/Vol] 3.39 10*6/uL Low 4.21 - 5.7 7 m/uL [facility] Segmented neutrophils/100 WBC (Bld) 71 % High 36 - 65 % [facility] Segs Absolute 7.79 [facility] WBC (Bld) [#/Vol] 10.9 10*3/uL [facility] CBC with Diffon 07-02-2022 Abs. Basophil <0.03 Normal 0.00-0.20 [facility] Comment on above: Performed By: #### C MPX, CDP #### [facility] [address] [place] [address] [place] [address] Ice Skating Coach: Khadar Tang MD Abs.Imm.Granulocyt e 0.06 k/uL Normal 0.00-0.30 [facility] Comment on above: Performed By: #### C MPX, CDP #### [facility] [address] [place] [address] Ice Skating Coach: Khadar Tang MD Abs.Neutrophil (Seg) 7.79 k/uL Normal 1.50-8.10 [facility] Comment on above: Performed By: #### C MPX, CDP #### [address] [place] [address] Ice Skating Coach: Khadar Tang MD Basophils/100 WBC (Bld) 0 % Normal 0-2 [facility] Comment on above: Performed By: #### C MPX, CDP #### [address] [place], [place] [phone] Ice Skating Coach: Khadar Tang MD Eosinophils (Bld) [#/Vol] 0.80 10*3/uL High 0.00-0.44 [facility] Comment on above: Performed By: #### C MPX, CDP #### [address] [place] [address] Ice Skating Coach: Khadar Tang MD Eosinophils/100 WBC (Bld) 7 % High 1-4 [facility] Comment on above: Performed By: #### C MPX, CDP #### [address] [place] [address] Ice Skating Coach: Khadar Tang MD Erythrocyte distribution width (RBC) [Ratio] 16.1 % High 11.8-14.4 [facility] Comment on above: Performed By: #### C MPX, CDP #### [address] [place] [address] Ice Skating Coach: Khadar Tang MD Hematocrit (Bld) [Volume fraction] 26.8 % Low 40.7-50.3 [facility] Comment on above: Performed By: #### C MPX, CDP #### [address] [place] [address] Ice Skating Coach: Khadar Tang MD Hemoglobin (Bld) [Mass/Vol] 7.9 g/dL Low 13.0-17.0 [facility] Comment on above: Performed By: #### C MPX, CDP #### [facility] [address] [place] [address] Ice Skating Coach: Khadar Tang MD Immature granulocytes/100 WBC (Bld) 1 % High 0 [facility] Comment on above: Performed By: #### C MPX, CDP #### [facility] [address] [place], [place] [phone] Ice Skating Coach: Khadar Tang MD Lymphocytes (Bld) [#/Vol] 1.38 10*3/uL Normal 1.10-3.70 [facility] Comment on above: Performed By: #### C MPX, CDP #### [address] [place] [address] Ice Skating Coach: Khadar Tang MD Lymphocytes/100 WBC (Bld) 13 % Low 24-43 [facility] Comment on above: Performed By: #### C MPX, CDP #### [address] [place], [place] [phone] Ice Skating Coach: Khadar Tang MD MCH (RBC) [Entitic mass] 23.3 pg Low 25.2-33.5 [facility] Comment on above: Performed By: #### C MPX, CDP #### [address] [place], [place] [phone] Ice Skating Coach: Khadar Tang MD MCHC (RBC) [Mass/Vol] 29.5 g/dL Normal 28.4-34.8 [facility] Comment on above: Performed By: #### C MPX, CDP #### [address] [place] [address] Ice Skating Coach: Khadar Tang MD MCV (RBC) [Entitic vol] 79.1 fL Low 82.6-102.9 [facility] Comment on above: Performed By: #### C MPX, CDP #### [facility] [address] [place], [place] [phone] Ice Skating Coach: Khadar Tang MD Monocytes (Bld) [#/Vol] 0.81 10*3/uL Normal 0.10-1.20 [facility] Comment on above: Performed By: #### C MPX, CDP #### [facility] [address] [place], [place] [phone] Ice Skating Coach: Khadar Tang MD Monocytes/100 WBC (Bld) 8 % Normal 3-12 [facility] Comment on above: Performed By: #### C MPX, CDP #### [address] [place], [place] [phone] Ice Skating Coach: Khadar Tang MD Neutrophil (Seg) 71 % High 36-65 [facility] Comment on above: Performed By: #### C MPX, CDP #### [address] [place], [place] [phone] Ice Skating Coach: Khadar Tang MD NRBC Automated 0.0 per 100 WBC Normal 0.0 [facility] Comment on above: Performed By: #### C MPX, CDP #### [address] [place], [place] [phone] Ice Skating Coach: Khadar Tang MD Platelet mean volume (Bld) [Entitic vol] 9.1 fL Normal 8.1-13.5 [facility] Comment on above: Performed By: #### C MPX, CDP #### [address] [place], [place] [phone] Ice Skating Coach: Khadar Tang MD Platelets (Bld) [#/Vol] 241 10*3/uL Normal 138-453 [facility] Comment on above: Performed By: #### C MPX, CDP #### [address] [place], [place] [phone] Ice Skating Coach: Khadar Tang MD RBC (Bld) [#/Vol] 3.39 10*6/uL Low 4.21-5.77 [facility] Comment on above: Performed By: #### C MPX, CDP #### [facility] [address] [place], [place] [phone] Ice Skating Coach: Khadar Tang MD WBC (Bld) [#/Vol] 10.9 10*3/uL Normal 3.5-11.3 [facility] Comment on above: Performed By: #### C MPX, CDP #### [facility] [address] [place], [place] [phone] Ice Skating Coach: Khadar Tang MD Cult,Woundon 06-27-2022 Cult,Wound Specimen Description .WOUND Special Requests LEG Direct Exam NO NEUTROPHILS SEEN NO ORGANISMS SEEN Culture NO GROWTH Report Status FINAL 06/27/2022 Normal [facility] Comment on above: Performed By: #### C MPX, CDP #### [facility] [address] [place], [place] [phone] Ice Skating Coach: Khadar Tang MD CBC auto differentialon 05-29 Absolute Eos # 0.63 High [facility] Absolute Immature Granulocyte 0.05 [facility] Absolute Lymph # 1.33 [facility] Absolute [place] # 0.82 [facility] Basophils Absolute [facility] Basophils/100 WBC (Bld) 0 % 0 - 2 % [facility] Eosinophils/100 WBC (Bld) 7 % High 1 - 4 % [facility] Hematocrit (Bld) [Volume fraction] 24.4 % Low 40.7 - 50.3 % [facility] Hemoglobin (Bld) [Mass/Vol] 7.6 g/dL Low 13.0 - 17.0 g/dL [facility] Immature granulocytes/100 WBC (Bld) 1 % High 0 [facility] Interpretation and review of laboratory results Abnormal [facility] Lymphocytes/100 WBC (Bld) 14 % Low 24 - 43 % [facility] MCH (RBC) [Entitic mass] 23.8 pg Low 25.2 - 33.5 pg [facility] MCHC (RBC) [Mass/Vol] 31.1 g/dL 28.4 - 34.8 g/dL [facility] MCV (RBC) [Entitic vol] 76.3 fL Low 82.6 - 102.9 fL [facility] Monocytes/100 WBC (Bld) 9 % 3 - 12 % [facility] NRBC Automated 0.0 0.0 per 100 WBC [facility] Platelet distribution width (Bld) [Ratio] 16.0 % High 11.8 - 14.4 % [facility] Platelet mean volume (Bld) [Entitic vol] 8.8 fL 8.1 - 13.5 fL [facility] Platelets (Bld) [#/Vol] 205 10*3/uL [facility] RBC (Bld) [#/Vol] 3.20 10*6/uL Low 4.21 - 5.7 7 m/uL [facility] Segmented neutrophils/100 WBC (Bld) 69 % High 36 - 65 % [facility] Segs Absolute 6.49 [facility] WBC (Bld) [#/Vol] 9.3 10*3/uL [facility] CBC with Diffon 06-26-2022 Abs. Basophil <0.03 Normal 0.00-0.20 [facility] Comment on above: Performed By: #### C MPX, CDP #### [facility] [address] [place] [address] Ice Skating Coach: Khadar Tang MD Abs.Imm.Granulocyt e 0.05 k/uL Normal 0.00-0.30 [facility] Comment on above: Performed By: #### C MPX, CDP #### [facility] [address] [place] [address] Ice Skating Coach: Khadar Tang MD Abs.Neutrophil (Seg) 6.49 k/uL Normal 1.50-8.10 [facility] Comment on above: Performed By: #### C MPX, CDP #### [address] [place] [address] Ice Skating Coach: Khadar Tang MD Basophils/100 WBC (Bld) 0 % Normal 0-2 [facility] Comment on above: Performed By: #### C MPX, CDP #### [address] [place], [facility] Ice Skating Coach: Khadar Tang MD Eosinophils (Bld) [#/Vol] 0.63 10*3/uL High 0.00-0.44 [facility] Comment on above: Performed By: #### C MPX, CDP #### [address] [place] [address] Ice Skating Coach: Khadar Tang MD Eosinophils/100 WBC (Bld) 7 % High 1-4 [facility] Comment on above: Performed By: #### C MPX, CDP #### [address] [place] [address] Ice Skating Coach: Khadar Tang MD Erythrocyte distribution width (RBC) [Ratio] 16.0 % High 11.8-14.4 [facility] Comment on above: Performed By: #### C MPX, CDP #### [address] [place], [facility] Ice Skating Coach: Khadar Tang MD Hematocrit (Bld) [Volume fraction] 24.4 % Low 40.7-50.3 [facility] Comment on above: Performed By: #### C MPX, CDP #### [address] [place] [address] Ice Skating Coach: Khadar Tang MD Hemoglobin (Bld) [Mass/Vol] 7.6 g/dL Low 13.0-17.0 [facility] Comment on above: Performed By: #### C MPX, CDP #### [facility] [address] [place] [address] Ice Skating Coach: Khadar Tang MD Immature granulocytes/100 WBC (Bld) 1 % High 0 [facility] Comment on above: Performed By: #### C MPX, CDP #### [facility] [address] [place], [facility] Ice Skating Coach: Khadar Tang MD Lymphocytes (Bld) [#/Vol] 1.33 10*3/uL Normal 1.10-3.70 [facility] Comment on above: Performed By: #### C MPX, CDP #### [address] [place] [address] Ice Skating Coach: Khadar Tang MD Lymphocytes/100 WBC (Bld) 14 % Low 24-43 [facility] Comment on above: Performed By: #### C MPX, CDP #### [address] [place], [place] [id number] Ice Skating Coach: Khadar Tang MD MCH (RBC) [Entitic mass] 23.8 pg Low 25.2-33.5 [facility] [facility] Comment on above: Performed By: #### C MPX, CDP #### [address] [place], [facility]83 [employer] Sk[employer] Coach: Khadar Tang MD MCHC (RBC) [Mass/Vol] 31.1 g/dL Normal 28.4-34.8 [facility] Comment on above: Performed By: #### C MPX, CDP #### [address] [place] [address] Ice Skating Coach: Khadar Tang MD MCV (RBC) [Entitic vol] 76.3 fL Low 82.6-102.9 [facility] Comment on above: Performed By: #### C MPX, CDP #### [facility] [address] [place] [address] Ice Skating Coach: Khadar Tang MD Monocytes (Bld) [#/Vol] 0.82 10*3/uL Normal 0.10-1.20 [facility] Comment on above: Performed By: #### C MPX, CDP #### [facility] [address] [place], [place] [phone] Ice Skating Coach: Khadar Tang MD Monocytes/100 WBC (Bld) 9 % Normal 3-12 [facility] Comment on above: Performed By: #### C MPX, CDP #### [facility] [address] [place], [facility]83 Ice Skating Coach: Khadar Tang MD Neutrophil (Seg) 69 % High 36-65 [facility] Comment on above: Performed By: #### C MPX, CDP #### [facility] [address] [place], [facility]83 Ice Skating Coach: Khadar Tang MD NRBC Automated 0.0 per 100 WBC Normal 0.0 [facility] Comment on above: Performed By: #### C MPX, CDP #### [address] [place], [place] [phone] Ice Skating Coach: Khadar Tang MD Platelet mean volume (Bld) [Entitic vol] 8.8 fL Normal 8.1-13.5 [facility] Comment on above: Performed By: #### C MPX, CDP #### [facility] [address] [place], [place] [phone] Ice Skating Coach: Khadar Tang MD Platelets (Bld) [#/Vol] 205 10*3/uL Normal 138-453 [facility] Comment on above: Performed By: #### C MPX, CDP #### [facility] [address] [place] [address] Ice Skating Coach: Khadar Tang MD RBC (Bld) [#/Vol] 3.20 10*6/uL Low 4.21-5.77 [facility] Comment on above: Performed By: #### C MPX, CDP #### [facility] [address] [place] [address] Ice Skating Coach: Khadar Tang MD WBC (Bld) [#/Vol] 9.3 10*3/uL Normal 3.5-11.3 [facility] Comment on above: Performed By: #### C MPX, CDP #### [facility] [address] [place] [address] Ice Skating Coach: Khadar Tang MD EKG Rhythm Stripon 3 rd [facility] Glucose, Whole Bloodon 06-26 Glucose [Mass/Vol] 95 mg/dL 74 - 100 mg/dL [facility] No Panel Informationon 06-26 No dictation [facility] Work Phone: [facility] Work Phone: Surgical Pathologyon 023 Surgical Pathology (NOTE) -- Diagnosis -- POLYP, TRANSVERSE COLON, POLYPECTOMY:-FRAGMENTS OF TUBULAR ADENOMA. Jaz Kiran Electronically Signed Out ag/06/30/2022 Clinical Information Pre-Op Diagnosis: HYPERKALEMIA Operative Findings: [...] SURGICAL PATHOLOGY CONSULTATION Patient Name: GANGA STINSON [facility] Rec: [id number] Path Number: [id number] [facility] [employer] [facility] ANATOMIC PATHOLOGY [address] [place] [phone] Normal [facility] Comment on above: Performed By: #### C MPX, CDP #### [facility] [address] [place] [address] Ice Skating Coach: Khadar Tang MD Blood occult stool #1on 05-29 Date, Stool #1 3 [facility] Comment on above: 30 23 Hemoglobin.gastroi ntestinal spec 1 Ql (Stl) Negative NEGATIVE [facility] Time, Stool #1 1944 [facility] CBC auto differentialon 05-29 Absolute Eos # 0.63 High [facility] Absolute Immature Granulocyte 0.07 [facility] Absolute Lymph # 1.63 [facility] Absolute [place] # 0.76 [facility] Basophils Absolute [facility] Basophils/100 WBC (Bld) 0 % 0 - 2 % [facility] Eosinophils/100 WBC (Bld) 7 % High 1 - 4 % [facility] Hematocrit (Bld) [Volume fraction] 24.6 % Low 40.7 - 50.3 % [facility] Hemoglobin (Bld) [Mass/Vol] 7.6 g/dL Low 13.0 - 17.0 g/dL [facility] Immature granulocytes/100 WBC (Bld) 1 % High 0 [facility] Interpretation and review of laboratory results Abnormal [facility] Lymphocytes/100 WBC (Bld) 19 % Low 24 - 43 % [facility] MCH (RBC) [Entitic mass] 23.7 pg Low 25.2 - 33.5 pg [facility] MCHC (RBC) [Mass/Vol] 30.9 g/dL 28.4 - 34.8 g/dL [facility] MCV (RBC) [Entitic vol] 76.6 fL Low 82.6 - 102.9 fL [facility] Monocytes/100 WBC (Bld) 9 % 3 - 12 % [facility] NRBC Automated 0.0 0.0 per 100 WBC [facility] Platelet distribution width (Bld) [Ratio] 15.9 % High 11.8 - 14.4 % [facility] Platelet mean volume (Bld) [Entitic vol] 8.9 fL 8.1 - 13.5 fL [facility] Platelets (Bld) [#/Vol] 223 10*3/uL [facility] RBC (Bld) [#/Vol] 3.21 10*6/uL Low 4.21 - 5.7 7 m/uL [facility] Segmented neutrophils/100 WBC (Bld) 64 % 36 - 65 % [facility] Segs Absolute 5.60 [facility] WBC (Bld) [#/Vol] 8.7 10*3/uL [facility] CBC with Diffon 06-25-2022 Abs. Basophil <0.03 Normal 0.00-0.20 [facility] Comment on above: Performed By: #### T ROPI #### [facility] [address] [place] [address] Dr. [place] [phone] Ice Skating Coach: Khadar Tang MD Abs.Imm.Granulocyt e 0.07 k/uL Normal 0.00-0.30 [facility] Comment on above: Performed By: #### T ROPI #### [address] [place] [phone] Ice Skating Coach: Khadar Tang MD Abs.Neutrophil (Seg) 5.60 k/uL Normal 1.50-8.10 [facility] Comment on above: Performed By: #### T ROPI #### [facility] [address] [place] [address] Dr. [place], [place] [phone] Ice Skating Coach: Khadar Tang MD Basophils/100 WBC (Bld) 0 % Normal 0-2 [facility] Comment on above: Performed By: #### T ROPI #### [facility] [address] [place], [place] [phone] Ice Skating Coach: Khadar Tang MD Eosinophils (Bld) [#/Vol] 0.63 10*3/uL High 0.00-0.44 [facility] Comment on above: Performed By: #### T ROPI #### [facility] [address] [place] [address] Ice Skating Coach: Khadar Tang MD Eosinophils/100 WBC (Bld) 7 % High 1-4 [facility] Comment on above: Performed By: #### T ROPI #### [facility] [address] [place], [facility]83 Ice Skating Coach: Khadar Tang MD Erythrocyte distribution width (RBC) [Ratio] 15.9 % High 11.8-14.4 [facility] Comment on above: Performed By: #### T ROPI #### [address] [place], [facility]83 Ice Skating Coach: Khadar Tang MD Hematocrit (Bld) [Volume fraction] 24.6 % Low 40.7-50.3 [facility] Comment on above: Performed By: #### T ROPI #### [address] [place], [place] [phone] Ice Skating Coach: Khadar Tang MD Hemoglobin (Bld) [Mass/Vol] 7.6 g/dL Low 13.0-17.0 [facility] Comment on above: Performed By: #### T ROPI #### [address] [place], [place] [address] Ice Skating Coach: Khadar Tang MD Immature granulocytes/100 WBC (Bld) 1 % High 0 [facility] Comment on above: Performed By: #### T ROPI #### [facility] [address] [place] [address] Dr. [place], [facility]83 Ice Skating Coach: Khadar Tang MD Lymphocytes (Bld) [#/Vol] 1.63 10*3/uL Normal 1.10-3.70 [facility] Comment on above: Performed By: #### T ROPI #### [facility] [address] [place], [place] [phone] Ice Skating Coach: Khadar Tang MD Lymphocytes/100 WBC (Bld) 19 % Low 24-43 [facility] Comment on above: Performed By: #### T ROPI #### [facility] [address] [place], [place] [phone] Ice Skating Coach: Khadar Tang MD MCH (RBC) [Entitic mass] 23.7 pg Low 25.2-33.5 [facility] Comment on above: Performed By: #### T ROPI #### [facility] [address] [place], [facility]83 Ice Skating Coach: Khadar Tang MD MCHC (RBC) [Mass/Vol] 30.9 g/dL Normal 28.4-34.8 [facility] Comment on above: Performed By: #### T ROPI #### [address] [place], [facility]83 Ice Skating Coach: Khadar Tang MD MCV (RBC) [Entitic vol] 76.6 fL Low 82.6-102.9 [facility] Comment on above: Performed By: #### T ROPI #### [address] [place], [place] [phone] Ice Skating Coach: Khadar Tang MD Monocytes (Bld) [#/Vol] 0.76 10*3/uL Normal 0.10-1.20 [facility] Comment on above: Performed By: #### T ROPI #### [facility] [address] [place], [place] [phone] Ice Skating Coach: Khadar Tang MD Monocytes/100 WBC (Bld) 9 % Normal 3-12 [facility] Comment on above: Performed By: #### T ROPI #### [facility] [address] [place], [place] [phone] Ice Skating Coach: Khadar Tang MD Neutrophil (Seg) 64 % Normal 36-65 [facility] Comment on above: Performed By: #### T ROPI #### [facility] [address] [place], [place] [phone] Ice Skating Coach: Khadar Tang MD NRBC Automated 0.0 per 100 WBC Normal 0.0 [facility] Comment on above: Performed By: #### T ROPI #### [facility] [address] [place], [facility]83 Ice Skating Coach: Khadar Tang MD Platelet mean volume (Bld) [Entitic vol] 8.9 fL Normal 8.1-13.5 [facility] Comment on above: Performed By: #### T ROPI #### [address] [place], [facility]83 Ice Skating Coach: Khadar Tang MD Platelets (Bld) [#/Vol] 223 10*3/uL Normal 138-453 [facility] Comment on above: Performed By: #### T ROPI #### [address] [place], [place] [phone] Ice Skating Coach: Khadar Tang MD RBC (Bld) [#/Vol] 3.21 10*6/uL Low 4.21-5.77 [facility] Comment on above: Performed By: #### T ROPI #### [facility] [address] [place] [address] Dr. [place], [facility]83 Ice Skating Coach: Khadar Tang MD WBC (Bld) [#/Vol] 8.7 10*3/uL Normal 3.5-11.3 [facility] Comment on above: Performed By: #### T ROPI #### [address] [place] [address] Ice Skating Coach: Khadar Tang MD Comp Metabolic Pr/rfx MGon 0 06-25-2022 Albumin [Mass/Vol] 2.8 g/dL Low 3.5-5.2 [facility] Comment on above: Performed By: #### T ROPI #### [facility] [address] [place], [place] [phone] Ice Skating Coach: Khadar Tang MD Albumin/Glob Ratio 0.7 Low 1.0-2.5 [facility] Comment on above: Performed By: #### T ROPI #### [facility] [address] [place], [place] [phone] Ice Skating Coach: Khadar Tang MD Alkaline Phos 75 U/L Normal 40-129 [facility] Comment on above: Performed By: #### T ROPI #### [facility] [address] [place], [place] [phone] Ice Skating Coach: Khadar Tang MD ALT [Catalytic activity/Vol] 9 U/L Normal 5-41 [facility] Comment on above: Performed By: #### T ROPI #### [facility] [address] [place], [place] [phone] Ice Skating Coach: Khadar Tang MD Anion gap [Moles/Vol] 6 mmol/L Low 9-17 [facility] Comment on above: Performed By: #### T ROPI #### [facility] [address] [place] [address] Ice Skating Coach: Khadar Tang MD AST [Catalytic activity/Vol] 10 U/L Normal <40 [facility] Comment on above: Performed By: #### T ROPI #### [facility] [address] [place], [place] [phone] Ice Skating Coach: Khadar Tang MD Bilirubin [Mass/Vol] 0.3 mg/dL Normal 0.3-1.2 [facility] Comment on above: Performed By: #### T ROPI #### [facility] [address] [place], [place] 1539183 Ice Skating Coach: Khadar Tang MD BUN/CRE Ratio 20 Normal 9-20 [facility] Comment on above: Performed By: #### T ROPI #### [facility] [address] [place], [place] [phone] Ice Skating Coach: Khadar Tang MD Calcium [Mass/Vol] 8.7 mg/dL Normal 8.6-10.4 [facility] Comment on above: Performed By: #### T ROPI #### [facility] [address] [place], [place] [phone] Ice Skating Coach: Khadar Tang MD Chloride [Moles/Vol] 113 mmol/L High 98-107 [facility] Comment on above: Performed By: #### T ROPI #### [facility] [address] [place], [place] [phone] Ice Skating Coach: Khadar Tang MD CO2 [Moles/Vol] 20 mmol/L Normal 20-31 [facility] Comment on above: Performed By: #### T ROPI #### [facility] [address] [place], [place] 4445083 Ice Skating Coach: Khadar Tang MD Creatinine [Mass/Vol] 0.97 mg/dL Normal 0.70-1.20 [facility] Comment on above: Performed By: #### T ROPI #### [facility] [address] [place], [place] [phone] Ice Skating Coach: Khadar Tang MD GFR/1.73 sq M.predicted among non-blacks MDRD (S/P/Bld) [Vol rate/Area] mL/min/{1.73_m2} Normal >60 [facility] Comment on above: Result Comment: These [...] Performed By: #### T ROPI #### [facility] [address] [place] [address] Ice Skating Coach: Khadar Tang MD Glucose [Mass/Vol] 144 mg/dL High 70-99 [facility] Comment on above: Performed By: #### T ROPI #### [facility] [address] [place], [place] [phone] Ice Skating Coach: Khadar Tang MD Potassium [Moles/Vol] 4.5 mmol/L Normal 3.7-5.3 [facility] Comment on above: Performed By: #### T ROPI #### [facility] [address] [place], [place] [phone] Ice Skating Coach: Khadar Tang MD Protein [Mass/Vol] 6.7 g/dL Normal 6.4-8.3 [facility] Comment on above: Performed By: #### T ROPI #### [facility] [address] [place], [place] 3663983 Ice Skating Coach: Khadar Tang MD Sodium [Moles/Vol] 139 mmol/L Normal 135-144 [facility] Comment on above: Performed By: #### T ROPI #### [facility] [address] [place] [address] Ice Skating Coach: Khadar Tang MD Urea nitrogen [Mass/Vol] 19 mg/dL Normal 8-23 [facility] Comment on above: Performed By: #### T ROPI #### [facility] [address] [place] [address] Ice Skating Coach: Khadar Tang MD Comprehensive Metabolic Pane l w/ Reflex to MGon 06-25-2022 Albumin [Mass/Vol] 2.8 g/dL Low 3.5 - 5.2 g/dL [facility] Albumin/Globulin [Mass ratio] 0.7 {ratio} Low 1.0 - 2.5 [facility] ALP [Catalytic activity/Vol] 75 U/L 40 - 129 U/L [facility] ALT [Catalytic activity/Vol] 9 U/L 5 - 41 U/L [facility] Anion gap [Moles/Vol] 6 mmol/L Low 9 - 17 mmol/L [facility] AST [Catalytic activity/Vol] 10 U/L NINF - 40 U/L [facility] Bilirubin [Mass/Vol] 0.3 mg/dL 0.3 - 1.2 mg/dL [facility] Calcium [Mass/Vol] 8.7 mg/dL 8.6 - 10. 4 mg/dL [facility] Chloride [Moles/Vol] 113 mmol/L High 98 - 107 mmol/L [facility] CO2 [Moles/Vol] 20 mmol/L 20 - 31 mmol/L [facility] Creatinine [Mass/Vol] 0.97 mg/dL 0.70 - 1.20 mg/dL [facility] GFR/1.73 sq M.predicted MDRD (S/P/Bld) [Vol rate/Area] - PINF [facility] Comment on above: These results are [...] 144 mg/dL High 70 - 99 mg/dL [facility] Interpretation and review of laboratory results Abnormal [facility] Potassium [Moles/Vol] 4.5 mmol/L 3.7 - 5.3 mmol/L [facility] Protein [Mass/Vol] 6.7 g/dL 6.4 - 8.3 g/dL [facility] Sodium [Moles/Vol] 139 mmol/L 135 - 144 mmol/L [facility] Urea nitrogen [Mass/Vol] 19 mg/dL 8 - 23 mg/dL [facility] Urea nitrogen/Creatinin e (Bld) [Mass ratio] 20 9 - 20 [facility] Cult,Woundon 06-25-2022 Cult,Wound Specimen Description .BUTTOCK Direct Exam FEW NEUTROPHILS MODERATE GRAM POSITIVE COCCI IN PAIRS MODERATE GRAM POSITIVE RODS Culture NORMAL SKIN ROBBIE Report Status FINAL 06/25/2022 [facility] Comment on above: Performed By: #### T ROPI #### [facility] [address] [place] [address] Dr. [place] [phone] Ice Skating Coach: Khadar Tang MD EKG Rhythm Stripon [facility] Occult Blood, Fecalon 2022 Occult Blood 1 Negative Normal NEG [facility] Comment on above: Performed By: #### C MPX, CDP #### [facility] [address] [place] [address] [address] [place] [address] Ice Skating Coach: Khadar Tang MD Specimen 1 Date [facility] Comment on above: Result Comment: Performed By: #### C MPX, CDP #### [facility] [address] [place] [address] [address] [place] [address] Ice Skating Coach: Khadar Tang MD Specimen 1 Time 1944 [facility] Comment on above: Performed By: #### C MPX, CDP #### [facility] [address] [place] [address] [place] [place] [address] Ice Skating Coach: Khadar Tang MD Surgical Pathologyon 023 Surgical Pathology (NOTE) -- Diagnosis -- RIGHT ANKLE, FIBULAR MALLEOLUS, BONE, EXCISION: - BENIGN BONE WITH HYPOCELLULAR AND FOCALLY FIBROTIC MARROW. - BENIGN PERIOSTEAL TISSUE WITH REACTIVE FIBROSIS. - NEGATIVE FOR OSTEOMYELITIS AND NEOPLASIA. Dilan Salvador M.D. Electronically Signed Out /06/29/2022 Clinical Information Operative Findings: FIBULAR MALLEOLUS, RIGHT ANKLE tm Source of Specimen A: FIBULAR MALLEOLUS,RIGHT ANKLE Gross Description GANGA STINSON, DENGIGNTARUN Received in formalin is a 0.8 x 0.2 x 0.1 cm pardo, firm tissue fragment. Totally embedded 1c, decal. tm Microscopic Description Microscopic examination performed. SURGICAL PATHOLOGY CONSULTATION Patient Name: GANGA STINSON [facility] Rec: [id number] Path Number: [id number] [facility] CONSULTING PATHOLOGISTS [facility] ANATOMIC PATHOLOG[facility] [address] [place] [phone] [facility] Comment on above: Performed By: #### C MPX, CDP #### [facility] [address] [place] [address] Ice Skating Coach: Khadar Tang MD TYPE AND SCREENon 06-25-2022 ABO/Rh Negative [facility] Arm Band Number [id number] [facility] Blood Bank Blood Product Expiration Date [id number] [facility] Blood Bank ISBT Product Blood Type 9500 [facility] Blood Bank Unit Type and Rh Negative [facility] Blood product type Nom (BPU) Leukocyte Reduced Red Cell [facility] Blood product unit ID (Dose) [#] [id number] [facility] Crossmatch Result COMPATIBLE [facility] Dispense Status TRANSFUSED [facility] Expiration Date 06/27/2022,2359 [facility] Product Code Blood Bank [id number] [facility] Transfusion Status OK TO TRANSFUSE B ON [facility] Unit Divison 0 [facility] Unit Issue Date/Time [id number] [facility] APTTon 06-24-2022 aPTT Coag (Bld) [Time] 35.6 s High 26.8-34.8 [facility] Comment on above: Result Comment: IV Heparin Therapy Range: 62.0-94.0 Performed By: #### C MPX, CDP #### [facility] [address] [place] [address] Ice Skating Coach: Khadar Tang MD B12/Folate Panelon Cobalamin (Vitamin B12) [Mass/Vol] 446 pg/mL Normal 232-1245 [facility] Comment on above: Performed By: #### C MPX, CDP #### [facility] [address] [place] [address] Ice Skating Coach: Khadar Tang MD Folic Acid 8.2 ng/mL Normal >4.8 [facility] Comment on above: Performed By: #### C MPX, CDP #### [facility] [address] [place] [address] Ice Skating Coach: Khadar Tang MD CBC auto differentialon 05-28 Absolute Eos # 0.46 High [facility] Absolute Immature Granulocyte 0.07 [facility] Absolute Lymph # 1.52 [facility] Absolute [place] # 0.53 [facility] Basophils (Bld) [#/Vol] 0.00 10*3/uL [facility] Hematocrit (Bld) [Volume fraction] 21.7 % Low 40.7 - 50.3 % [facility] Hemoglobin (Bld) [Mass/Vol] 6.6 g/dL Critically low 13.0 - 17.0 g/dL [facility] Interpretation and review of laboratory results Abnormal [facility] MCH (RBC) [Entitic mass] 23.4 pg Low 25.2 - 33.5 pg [facility] MCHC (RBC) [Mass/Vol] 30.4 g/dL 28.4 - 34.8 g/dL [facility] MCV (RBC) [Entitic vol] 77.0 fL Low 82.6 - 102.9 fL [facility] Morphology Álvaro (Bld) [Interp] HYPOCHROMIA PRESENT [facility] NRBC Automated 0.0 0.0 per 100 WBC [facility] Platelet distribution width (Bld) [Ratio] 16.2 % High 11.8 - 14.4 % [facility] Platelet mean volume (Bld) [Entitic vol] 8.9 fL 8.1 - 13.5 fL [facility] Platelets (Bld) [#/Vol] 208 10*3/uL [facility] RBC (Bld) [#/Vol] 2.82 10*6/uL Low 4.21 - 5.7 7 m/uL [facility] Segmented neutrophils/100 WBC (Bld) 61 % 36 - 65 % [facility] Segs Absolute 4.02 [facility] WBC (Bld) [#/Vol] 6.6 10*3/uL [facility] CBC with Diffon 06-24-2022 Abs. Basophil 0.00 k/uL Normal 0.0-0.2 [facility] Comment on above: Performed By: #### C MPX, CDP #### [facility] [address] [place] [address] [address] [place] [address] Ice Skating Coach: Khadar Tang MD Abs.Imm.Granulocyt e 0.07 k/uL Normal 0.00-0.30 [facility] Comment on above: Performed By: #### C MPX, CDP #### [address] [place] [address] Ice Skating Coach: Khadar Tang MD Abs.Neutrophil (Seg) 4.02 k/uL Normal 1.50-8.10 [facility] Comment on above: Performed By: #### C MPX, CDP #### [facility] [address] [place] [address] [address] [place] [address] Ice Skating Coach: Khadar Tang MD Eosinophils (Bld) [#/Vol] 0.46 10*3/uL High 0.00-0.44 [facility] Comment on above: Performed By: #### C MPX, CDP #### [address] [place] [phone] Ice Skating Coach: Khadar Tang MD Lymphocytes (Bld) [#/Vol] 1.52 10*3/uL Normal 1.10-3.70 [facility] Comment on above: Performed By: #### C MPX, CDP #### [facility] [address] [place], [place] [phone] Ice Skating Coach: Khadar Tang MD Monocytes (Bld) [#/Vol] 0.53 10*3/uL Normal 0.10-1.20 [facility] Comment on above: Performed By: #### C MPX, CDP #### [facility] [address] [place], [place] [phone] Ice Skating Coach: Khadar Tang MD Morphology Álvaro (Bld) [Interp] HYPOCHROMIA Normal [facility] Comment on above: Result Comment: PRES ENT Performed By: #### C MPX, CDP #### [address] [place], [place] [phone] Ice Skating Coach: Khadar Tang MD Neutrophil (Seg) 61 % Normal 36-65 [facility] Comment on above: Performed By: #### C MPX, CDP #### [facility] [address] [place], [place] [phone] Ice Skating Coach: Khadar Tang MD Erythrocyte distribution width (RBC) [Ratio] 16.2 % High 11.8-14.4 [facility] Comment on above: Performed By: #### C MPX, CDP #### [address] [place], [place] [id number] Ice Skating Coach: Khadar Tang MD Hematocrit (Bld) [Volume fraction] 21.7 % Low 40.7-50.3 [facility] Comment on above: Performed By: #### C MPX, CDP #### [address] [place] [address] [place] [address] Ice Skating Coach: Khadar Tang MD Hemoglobin (Bld) [Mass/Vol] 6.6 g/dL Critically low 13.0-17.0 [facility] Comment on above: Performed By: #### C MPX, CDP #### [facility] [address] [place] [address] [place] [address] Ice Skating Coach: Khadar Tang MD MCH (RBC) [Entitic mass] 23.4 pg Low 25.2-33.5 [facility] Comment on above: Performed By: #### C MPX, CDP #### [address] [place], [place] [id number] Ice Skating Coach: Khadar Tang MD MCHC (RBC) [Mass/Vol] 30.4 g/dL Normal 28.4-34.8 [facility] Comment on above: Performed By: #### C MPX, CDP #### [address] [place] [address] [place] [address] Ice Skating Coach: Khadar Tang MD MCV (RBC) [Entitic vol] 77.0 fL Low 82.6-102.9 [facility] Comment on above: Performed By: #### C MPX, CDP #### [address] [place] [address] [place] [address] Ice Skating Coach: Khadar Tang MD NRBC Automated 0.0 per 100 WBC Normal 0.0 [facility] Comment on above: Performed By: #### C MPX, CDP #### [address] [place], [facility] Ice Skating Coach: Khadar Tang MD Platelet mean volume (Bld) [Entitic vol] 8.9 fL Normal 8.1-13.5 [facility] Comment on above: Performed By: #### C MPX, CDP #### [address] [place] [address] [place] [address] Ice Skating Coach: Khadar Tang MD Platelets (Bld) [#/Vol] 208 10*3/uL Normal 138-453 [facility] Comment on above: Performed By: #### C MPX, CDP #### [facility] [address] [place], [place] [id number] Ice Skating Coach: Khadar Tang MD RBC (Bld) [#/Vol] 2.82 10*6/uL Low 4.21-5.77 [facility] Comment on above: Performed By: #### C MPX, CDP #### [address] [place], [place] 8992083 Ice Skating Coach: Khadar Tang MD WBC (Bld) [#/Vol] 6.6 10*3/uL Normal 3.5-11.3 [facility] Comment on above: Performed By: #### C MPX, CDP #### [address] [place], [place] [id number] Ice Skating Coach: Khadar Tang MD Basophils/100 WBC (Bld) 0 % Normal 0-2 [facility] Comment on above: Performed By: #### C MPX, CDP #### [address] [place], [place] [id number] Ice Skating Coach: Khadar Tang MD Eosinophils/100 WBC (Bld) 7 % High 1-4 [facility] Comment on above: Performed By: #### C MPX, CDP #### [address] [place], [place] [id number] Ice Skating Coach: Khadar Tang MD Immature granulocytes/100 WBC (Bld) 1 % High 0 [facility] Comment on above: Performed By: #### C MPX, CDP #### [facility] [address] [place] [address] Dr. [place], [place] [id number] Ice Skating Coach: Khadar Tang MD Lymphocytes/100 WBC (Bld) 23 % Low 24-43 [facility] Comment on above: Performed By: #### C MPX, CDP #### [address] [place], [place] [id number] Ice Skating Coach: Khadar aTng MD Monocytes/100 WBC (Bld) 8 % Normal 3-12 [facility] Comment on above: Performed By: #### C MPX, CDP #### [facility] [address] [place] [address] Ice Skating Coach: Khadar Tang MD Comp Metabolic Pr/rfx MGon 0 - Albumin [Mass/Vol] 2.4 g/dL Low 3.5-5.2 [facility] Comment on above: Performed By: #### C MPX, CDP #### [facility] [address] [place], [place] [id number] Ice Skating Coach: Khadar Tang MD Albumin/Glob Ratio 0.6 Low 1.0-2.5 [facility] Comment on above: Performed By: #### C MPX, CDP #### [facility] [address] [place], [place] [id number] Ice Skating Coach: Khadar Tang MD Alkaline Phos 75 U/L Normal 40-129 [facility] Comment on above: Performed By: #### C MPX, CDP #### [facility] [address] [place], [place] 1089283 Ice Skating Coach: Khadar Tang MD ALT [Catalytic activity/Vol] 9 U/L Normal 5-41 [facility] Comment on above: Performed By: #### C MPX, CDP #### [facility] [address] [place], [place] [id number] Ice Skating Coach: Khadar Tang MD Anion gap [Moles/Vol] 7 mmol/L Low 9-17 [facility] Comment on above: Performed By: #### C MPX, CDP #### [facility] [address] [place] [address] Ice Skating Coach: Khadar Tang MD AST [Catalytic activity/Vol] 11 U/L Normal <40 [facility] Comment on above: Performed By: #### C MPX, CDP #### [facility] [address] [place], [place] 830[address]83 Ice Skating Coach: Khadar Tang MD Bilirubin [Mass/Vol] mg/dL Low 0.3-1.2 [facility] Comment on above: Performed By: #### C MPX, CDP #### [facility] [address] [place], [place] 3688283 Ice Skating Coach: Khadar Tang MD BUN/CRE Ratio 23 High 9-20 [facility] Comment on above: Performed By: #### C MPX, CDP #### [facility] [address] [place], [place] 9108483 Ice Skating Coach: Khadar Tang MD Calcium [Mass/Vol] 8.5 mg/dL Low 8.6-10.4 [facility] Comment on above: Performed By: #### C MPX, CDP #### [facility] [address] [place], [place] 1933483 Ice Skating Coach: Khadar Tang MD Chloride [Moles/Vol] 115 mmol/L High 98-107 [facility] Comment on above: Performed By: #### C MPX, CDP #### [facility] [address] [place] [address] Ice Skating Coach: Khadar Tang MD CO2 [Moles/Vol] 18 mmol/L Low 20-31 [facility] Comment on above: Performed By: #### C MPX, CDP #### [facility] [address] [place], [place] 1908683 Ice Skating Coach: Khadar Tang MD Creatinine [Mass/Vol] 1.11 mg/dL Normal 0.70-1.20 [facility] Comment on above: Performed By: #### C MPX, CDP #### [facility] [address] [place], [place] 750[address]83 Ice Skating Coach: Khadar Tang MD GFR/1.73 sq M.predicted among non-blacks MDRD (S/P/Bld) [Vol rate/Area] mL/min/{1.73_m2} Normal >60 [facility] Comment on above: Result Comment: These [...] By: #### C MPX, CDP #### [facility] [address] [place] [address] [place] [address] Ice Skating Coach: Khadar Tang MD Glucose [Mass/Vol] 137 mg/dL High 70-99 [facility] Comment on above: Performed By: #### C MPX, CDP #### [facility] [address] [place] [address] Dr. [place], [place] [phone] Ice Skating Coach: Khadar Tang MD Potassium [Moles/Vol] 4.9 mmol/L Normal 3.7-5.3 [facility] Comment on above: Performed By: #### C MPX, CDP #### [address] [place], [place] 4733683 Ice Skating Coach: Khadar Tang MD Protein [Mass/Vol] 6.3 g/dL Low 6.4-8.3 [facility] Comment on above: Performed By: #### C MPX, CDP #### [facility] [address] [place] [address] [place] [address] Ice Skating Coach: Khadar Tang MD Sodium [Moles/Vol] 140 mmol/L Normal 135-144 [facility] Comment on above: Performed By: #### C MPX, CDP #### [facility] [address] [place] [address] [place] [address] Ice Skating Coach: Khadar Tang MD Urea nitrogen [Mass/Vol] 26 mg/dL High 8-23 [facility] Comment on above: Performed By: #### C MPX, CDP #### [facility] [address] [place] [address] Ice Skating Coach: Khadar Tang MD Comprehensive Metabolic Pane l w/ Reflex to MGon 06-24-2022 Albumin [Mass/Vol] 2.4 g/dL Low 3.5 - 5.2 g/dL [facility] Albumin/Globulin [Mass ratio] 0.6 {ratio} Low 1.0 - 2.5 [facility] ALP [Catalytic activity/Vol] 75 U/L 40 - 129 U/L [facility] ALT [Catalytic activity/Vol] 9 U/L 5 - 41 U/L [facility] Anion gap [Moles/Vol] 7 mmol/L Low 9 - 17 mmol/L [facility] AST [Catalytic activity/Vol] 11 U/L NINF - 40 U/L [facility] Bilirubin [Mass/Vol] mg/dL Low 0.3 - 1.2 mg/dL [facility] Calcium [Mass/Vol] 8.5 mg/dL Low 8.6 - 10. 4 mg/dL [facility] Chloride [Moles/Vol] 115 mmol/L High 98 - 107 mmol/L [facility] CO2 [Moles/Vol] 18 mmol/L Low 20 - 31 mmol/L [facility] Creatinine [Mass/Vol] 1.11 mg/dL 0.70 - 1.20 mg/dL [facility] GFR/1.73 sq M.predicted MDRD (S/P/Bld) [Vol rate/Area] - PINF [facility] Comment on above: These results are [...] 137 mg/dL High 70 - 99 mg/dL [facility] [employer] Interpretation and review of laboratory results Abnormal [facility] [employer] Potassium [Moles/Vol] 4.9 mmol/L 3.7 - 5.3 mmol/L [facility] Protein [Mass/Vol] 6.3 g/dL Low 6.4 - 8.3 g/dL [facility] Sodium [Moles/Vol] 140 mmol/L 135 - 144 mmol/L [facility] Urea nitrogen [Mass/Vol] 26 mg/dL High 8 - 23 mg/dL [facility] Urea nitrogen/Creatinin e (Bld) [Mass ratio] 23 High 9 - 20 [facility] Culture, Wound Aerobic Onlyo n 06-24-2022 Interpretation and review of laboratory results Abnormal [facility] Microorganism identified Cx Nom (Unsp spec) NORMAL SKIN ROBBIE [facility] Microorganism or agent identified Nom (Unsp spec) FEW NEUTROPHILS Abnormal [facility] Specimen Description .[facility] [employer] EKG 12 Leadon 06-24-2022 Atrial Rate 64 BPM [facility] [employer] Work Phone: P Hensley 51 degrees [facility] [employer] Work Phone: P-R Interval 174 ms [facility] Work Phone: Q-T Interval 394 ms [facility] Work Phone: QRS Duration 94 ms [facility] Work Phone: QTc Calculation (Bazett) 406 ms [facility] Work Phone: R Hensley 20 degrees [facility] [employer] Work Phone: T Hensley 22 degrees [facility] Work Phone: Ventricular Rate 64 BPM [facility] [employer] Work Phone: Normal sinus rhythm Inferior infarct , age undetermined Abnormal ECG When compared with ECG of 22-JUN-2022 17:28, Minimal criteria for Inferior infarct is now Present Confirmed by Michelle Noe MD ([id number]) on 06/24/2022 10:31:37 PM [facility] Michelle Noe MD - 06/24/2022 Normal sinus rhythm Inferior infarct , age undetermined Abnormal ECG When compared with ECG of 22-JUN-2022 17:28, Minimal criteria for Inferior infarct is now Present Confirmed by Michelle Noe MD ([id number]) on 06/24/2022 10:31:37 PM [facility] [employer] Work Phone: [facility] Work Phone: EKG Rhythm Stripon 3 [facility] ML [facility] Echocardiogram complete 2D w ith doppler with coloron 06-24-2022 Left ventricular Ejection fraction 60 [facility] Work Phone: LVEF MODALITY ECHO [facility] Work Phone: [facility] Transthoracic Echocardiography Report (TTE) Patient Name ALLOWAY Date of Study 06/24/2022 GANGA Evans Date of 1960 Gender Male Age 61 year(s) Race Room Number 0334 Height: 71 inch, 180.34 cm Corporate ID [id number] Weight: 252 pounds, 114.3 kg # Patient Acct [id number] BSA: 2.33 m^2 BMI: 35.15 kg/m^2 # MR # [id number] Private [employer]er Jeanette Clarke Interpreting Physician Michelle Noe Fellow Referring Nurse Shelly Mondragon, Practitioner DOLLY Interpreting Referring Physician Fellow Type of Study TTE procedure:2D Echocardiogram, M-Mode, Doppler, Color Doppler. Procedure Date Date: 06/24/2022 Start: 09:47 AM Study Location: [facility] Indications:Abnormal ECG. History / Tech. Comments: [...] MD / Result, Unknown Provider - 06/24/2022 [facility] Transthoracic Echocardiography Report (TTE) Patient Name ALLOWAY Date of Study 06/24/2022 GANGA Evans Date of 1960 Gender Male Age 61 year(s) Race Room Number 0334 Height: 71 inch, 180.34 cm Corporate ID [id number] Weight: 252 pounds, 114.3 kg # Patient Acct [id number] BSA: 2.33 m^2 BMI: 35.15 kg/m^2 # MR # [id number] Private Banker Jeanette Clarke Interpreting Physician Michelle Noe Fellow Referring Nurse Shelly Mondragon, Practitioner DOLLY Interpreting Referring Physician Fellow Type of Study TTE procedure:2D Echocardiogram, M-Mode, Doppler, Color Doppler. Procedure Date Date: 06/24/2022 Start: 09:47 AM Study Location: [facility] Indications:Abnormal ECG. History / Tech. Comments: [...] Wall E' velocity:0.13 m/s Lateral Wall E/E':9.8 [facility] Work Phone: [facility] Work Phone: Glucose, Whole Bloodon 06-24 Glucose [Mass/Vol] 114 mg/dL High 74 - 100 mg/dL [facility] Interpretation and review of laboratory results Abnormal [facility] Hemoglobin and Hematocriton 06-24-2022 Hematocrit (Bld) [Volume fraction] 25.1 % Low 40.7 - 50.3 % [facility] Hemoglobin (Bld) [Mass/Vol] 7.8 g/dL Low 13.0 - 17.0 g/dL [facility] Interpretation and review of laboratory results Abnormal [facility] Hgb/Hcton 06-24-2022 Hematocrit (Bld) [Volume fraction] 25.1 % Low 40.7-50.3 [facility] Comment on above: Performed By: #### C MPX, CDP #### [facility] [address] [place] [address] [place] [address] Ice Skating Coach: Khadar Tang MD Hemoglobin (Bld) [Mass/Vol] 7.8 g/dL Low 13.0-17.0 [facility] Comment on above: Performed By: #### C MPX, CDP #### [facility] [address] [place] [address] Ice Skating Coach: Khadar Tang MD Iron Binding Cap.on 06-25-19 23 % Fe Saturation 19 % Low 20-55 [facility] Comment on above: Performed By: #### C MPX, CDP #### [facility] [address] [place], [place] [id number] Ice Skating Coach: Khadar Tang MD Iron [Mass/Vol] 33 ug/dL Low 59-158 [facility] Comment on above: Performed By: #### C MPX, CDP #### [facility] [address] [place], [place] [phone] Ice Skating Coach: Khadar Tang MD Total Fe Binding Cap 175 ug/dL Low 250-450 [facility] Comment on above: Performed By: #### C MPX, CDP #### [facility] [address] [place] [address] Ice Skating Coach: Khadar Tang MD Unbound Fe Bind Cap 142 ug/dL Normal 112-347 [facility] Comment on above: Performed By: #### C MPX, CDP #### [facility] [address] [place] [address] Ice Skating Coach: Khadar Tang MD Iron and TIBCon 06-24-2022 Interpretation and review of laboratory results Abnormal [facility] Iron [Mass/Vol] 33 ug/dL Low 59 - 158 ug/dL [facility] Iron binding capacity [Mass/Vol] 175 ug/dL Low 250 - 450 ug/dL [facility] Iron Saturation 19 % Low 20 - 55 % [facility] UIBC 142 ug/dL 112 - 347 ug/dL [facility] Laboratory - Microbiology an d Antimicrobial susceptibilityon 06-24-2022 Microorganism or agent identified Nom (Unsp spec) Positive Abnormal [facility] Lipid Panelon 06-24-2022 Cholesterol [Mass/Vol] 147 mg/dL NINF - 200 mg/dL [facility] Comment on above: Cholesterol Guidelines: <200 Desirable 200-240 Borderline >240 Undesirable Cholesterol in HDL [Mass/Vol] 28 mg/dL Low 40 - PINF mg/dL [facility] Comment on above: HDL Guidelines: <40 Undesirable 40-59 Borderline >59 Desirable Cholesterol in LDL [Mass/Vol] 98 mg/dL 0 - 130 mg/dL [facility] Comment on above: LDL Guidelines: <100 Desirable 100-129 Near to/above Desirable 130-159 Borderline >159 Undesirable Direct (measured) LDL and calculated LDL are not interchangeable tests. Cholesterol.total/ Cholesterol in HDL [Mass ratio] 5.3 {ratio} High NINF - 5 [facility] Interpretation and review of laboratory results Abnormal [facility] Triglyceride [Mass/Vol] 107 mg/dL NINF - 150 mg/dL [facility] Comment on above: Triglyceride Guidelines: <150 Desirable 150-199 Borderline 200-499 High >499 Very high Based on AHA Guidelines for fasting triglyceride, December 2011. [facility] Lipid Profileon 06-24-2022 Cholesterol [Mass/Vol] 147 mg/dL Normal <200 [facility] Comment on above: Result Comment: Cholesterol Guidelines: <200 Desirable 200-240 Borderline >240 Undesirable Performed By: #### T ROPI #### [facility] [address] [place] [address] [place] [address] Ice Skating Coach: Khadar Tang MD Cholesterol in HDL [Mass/Vol] 28 mg/dL Low >40 [facility] Comment on above: Result Comment: HDL Guidelines: <40 Undesirable 40-59 Borderline >59 Desirable Performed By: #### T ROPI #### [address] [place] [address] Ice Skating Coach: Khadar Tang MD Cholesterol in LDL [Mass/Vol] 98 mg/dL Normal 0-130 [facility] Comment on above: Result Comment: LDL Guidelines: <100 Desirable 100-129 Near to/above Desirable 130-159 Borderline >159 Undesirable Direct (measured) LDL and calculated LDL are not interchangeable tests. Performed By: #### T ROPI #### [facility] [address] [place] [address] [place] [address] Ice Skating Coach: Khadar Tang MD Cholesterol.total/ Cholesterol in HDL [Mass ratio] 5.3 {ratio} High <5 [facility] Comment on above: Performed By: #### T ROPI #### [facility] [address] [place] [address] Dr. [place], [place] [phone] Ice Skating Coach: Khadar Tang MD Triglyceride [Mass/Vol] 107 mg/dL Normal <150 [facility] Comment on above: Result Comment: Triglyceride Guidelines: <150 Desirable 150-199 Borderline 200-499 High >499 Very high Based on AHA Guidelines for fasting triglyceride, December 2011. Performed By: #### T ROPI #### [facility] [address] [place] [address] Dr. [place], [place] [phone] Ice Skating Coach: Khadar Tang MD PTon 06-24-2022 INR Coag (PPP) [Relative time] 1.1 {INR} Normal [facility] Comment on above: Result Comment: Therapeutic Range: Moderate Anticoagulant Intensity: INR = 2.0-3.0 High Anticoagulant Intensity: INR = 2.5-3.5 Performed By: #### C MPX, CDP #### [facility] [address] [place] [address] Dr. [place], [facility] Ice Skating Coach: Khadar Tang MD PT Coag (PPP) [Time] 14.8 s Normal 11.9-14.8 [facility] Comment on above: Performed By: #### C MPX, CDP #### [address] [place], [place] 5173583 Ice Skating Coach: Khadar Tang MD PTTon 06-24-2022 aPTT Coag (Bld) [Time] 35.6 s High [facility] Comment on above: IV Heparin Therapy Range: 62.0-94.0 Interpretation and review of laboratory results Abnormal [facility] Protime-INRon 06-24-2022 INR Coag (PPP) [Relative time] 1.1 {INR} [facility] Comment on above: Therapeutic Range: Moderate Anticoagulant Intensity: INR = 2.0-3.0 High Anticoagulant Intensity: INR = 2.5-3.5 PT Coag (PPP) [Time] 14.8 s [facility] Troponinon 06-24-2022 Troponin, High Sens 57 ng/L Critically high 0-22 [facility] Comment on above: Result Comment: High Sensitivity Troponin values cannot be compared with other Troponin methodologies. Performed By: #### C MPX, CDP #### [facility] [address] [place] [address] Dr. [place], [place] [id number] Ice Skating Coach: Khadar Tang MD Interpretation and review of laboratory results Abnormal [facility] Troponin I.cardiac DL <= 0.01 ng/mL [Mass/Vol] 57 ng/L Critically high 0 - 22 ng/L [facility] Comment on above: High Sensitivity Tro ponin values cannot be compared with other Troponin methodologies. [facility] Troponin, High Sens 58 ng/L Critically high 0-22 [facility] Comment on above: Result Comment: High Sensitivity Troponin values cannot be compared with other Troponin methodologies. Performed By: #### T CINDYI #### [address] [place] [address] Ice Skating Coach: Khadar Tang MD Interpretation and review of laboratory results Abnormal [facility] Troponin I.cardiac DL <= 0.01 ng/mL [Mass/Vol] 58 ng/L Critically high 0 - 22 ng/L [facility] Comment on above: High Sensitivity Tro ponin values cannot be compared with other Troponin methodologies. [facility] Troponin, High Sens 59 ng/L Critically high 0-22 [facility] Comment on above: Result Comment: High Sensitivity Troponin values cannot be compared with other Troponin methodologies. Performed By: #### C MPX, CDP #### [facility] [address] [place] [address] [place] [address] Ice Skating Coach: Khadar Tang MD Interpretation and review of laboratory results Abnormal [facility] Troponin I.cardiac DL <= 0.01 ng/mL [Mass/Vol] 59 ng/L Critically high 0 - 22 ng/L [facility] Comment on above: High Sensitivity Tro ponin values cannot be compared with other Troponin methodologies. [facility] Type + Screenon 06-24-2022 Type + Screen Sample Expiration 06/27/2022,2359 Arm Band Number [id number] ABO/Rh(D) A NEGATIVE Antibody Screen NEGATIVE Unit Number [id number] Blood Component Type Leukocyte Reduced Red Cell Unit Division 00 Status of Unit TRANSFUSED Transfusion Status OK TO TRANSFUSE Crossmatch Result COMPATIBLE Normal [facility] Comment on above: Performed By: #### C MPX, MARGARITO #### [facility] [address] [place] [address] Ice Skating Coach: Khadar Tang MD Vitamin B12 & Folateon 06-24 Cobalamin (Vitamin B12) [Mass/Vol] 446 pg/mL 232 - 1245 pg/mL [facility] Folate [Mass/Vol] 8.2 ng/mL 4.8 - PINF ng/mL [facility] CBC auto differentialon 05-28 Absolute Eos # 0.65 High [facility] Absolute Immature Granulocyte 0.06 [facility] Absolute Lymph # 1.94 [facility] Absolute [place] # 0.72 [facility] Basophils (Bld) [#/Vol] 0.04 10*3/uL [facility] Basophils/100 WBC (Bld) 0 % 0 - 2 % [facility] Eosinophils/100 WBC (Bld) 7 % High 1 - 4 % [facility] Hematocrit (Bld) [Volume fraction] 25.0 % Low 40.7 - 50.3 % [facility] Hemoglobin (Bld) [Mass/Vol] 7.5 g/dL Low 13.0 - 17.0 g/dL [facility] Immature granulocytes/100 WBC (Bld) 1 % High 0 [facility] Interpretation and review of laboratory results Abnormal [facility] Lymphocytes/100 WBC (Bld) 22 % Low 24 - 43 % [facility] MCH (RBC) [Entitic mass] 23.3 pg Low 25.2 - 33.5 pg [facility] MCHC (RBC) [Mass/Vol] 30.0 g/dL 28.4 - 34.8 g/dL [facility] MCV (RBC) [Entitic vol] 77.6 fL Low 82.6 - 102.9 fL [facility] Monocytes/100 WBC (Bld) 8 % 3 - 12 % [facility] NRBC Automated 0.0 0.0 per 100 WBC [facility] Platelet distribution width (Bld) [Ratio] 16.4 % High 11.8 - 14.4 % [facility] Platelet mean volume (Bld) [Entitic vol] 8.7 fL 8.1 - 13.5 fL [facility] Platelets (Bld) [#/Vol] 263 10*3/uL [facility] RBC (Bld) [#/Vol] 3.22 10*6/uL Low 4.21 - 5.7 7 m/uL [facility] Segmented neutrophils/100 WBC (Bld) 62 % 36 - 65 % [facility] Segs Absolute 5.55 [facility] WBC (Bld) [#/Vol] 9.0 10*3/uL [facility] CBC with Diffon 06-23-2022 Abs. Basophil 0.04 k/uL Normal 0.00-0.20 [facility] Comment on above: Performed By: #### C MPX, CDP #### [address] [place] [address] Ice Skating Coach: Khadar Tang MD Abs.Imm.Granulocyt e 0.06 k/uL Normal 0.00-0.30 [facility] [facility] Comment on above: Performed By: #### C MPX, CDP #### [facility] [address] [place] [address] [address]. [place], [place] [id number] Ice Skating Coach: Khadar Tang MD Abs.Neutrophil (Seg) 5.55 k/uL Normal 1.50-8.10 [facility] Comment on above: Performed By: #### C MPX, CDP #### [address] [place], [place] [id number] Ice Skating Coach: Khadar Tang MD Basophils/100 WBC (Bld) 0 % Normal 0-2 [facility] Comment on above: Performed By: #### C MPX, CDP #### [facility] [address] [place], [place] [phone] Ice Skating Coach: Khadar Tang MD Eosinophils (Bld) [#/Vol] 0.65 10*3/uL High 0.00-0.44 [facility] Comment on above: Performed By: #### C MPX, CDP #### [address] [place], [place] [address] Ice Skating Coach: Khadar Tang MD Eosinophils/100 WBC (Bld) 7 % High 1-4 [facility] Comment on above: Performed By: #### C MPX, CDP #### [address] [place], [facility]83 Ice Skating Coach: Khadar Tang MD Erythrocyte distribution width (RBC) [Ratio] 16.4 % High 11.8-14.4 [facility] Comment on above: Performed By: #### C MPX, CDP #### [address] [place], [place] [id number] Ice Skating Coach: Khadar Tang MD Hematocrit (Bld) [Volume fraction] 25.0 % Low 40.7-50.3 [facility] Comment on above: Performed By: #### C MPX, CDP #### [address] uSárez, [facility]83 [employer] Sk[employer] Coach: Khadar Tang MD Hemoglobin (Bld) [Mass/Vol] 7.5 g/dL Low 13.0-17.0 [facility] Comment on above: Performed By: #### C MPX, CDP #### [address] [place] [address] Ice Skating Coach: Khadar Tang MD Immature granulocytes/100 WBC (Bld) 1 % High 0 [facility] Comment on above: Performed By: #### C MPX, CDP #### [facility] [address] [place] [address] Ice Skating Coach: Khadar Tang MD Lymphocytes (Bld) [#/Vol] 1.94 10*3/uL Normal 1.10-3.70 [facility] Comment on above: Performed By: #### C MPX, CDP #### [address] [place], [facility]83 Ice Skating Coach: Khadar Tang MD Lymphocytes/100 WBC (Bld) 22 % Low 24-43 [facility] Comment on above: Performed By: #### C MPX, CDP #### [address] [place], [facility]83 Ice Skating Coach: Khadar Tang MD MCH (RBC) [Entitic mass] 23.3 pg Low 25.2-33.5 [facility] Comment on above: Performed By: #### C MPX, CDP #### [address] [place], [facility]83 Ice Skating Coach: Khadar Tang MD MCHC (RBC) [Mass/Vol] 30.0 g/dL Normal 28.4-34.8 [facility] Comment on above: Performed By: #### C MPX, CDP #### [address] [place], [facility]83 Ice Skating Coach: Khadar Tang MD MCV (RBC) [Entitic vol] 77.6 fL Low 82.6-102.9 [facility] Comment on above: Performed By: #### C MPX, CDP #### [address] [place] [address] Ice Skating Coach: Khadar Tang MD Monocytes (Bld) [#/Vol] 0.72 10*3/uL Normal 0.10-1.20 [facility] Comment on above: Performed By: #### C MPX, CDP #### [address] [place], [place] [id number] Ice Skating Coach: Khadar Tang MD Monocytes/100 WBC (Bld) 8 % Normal 3-12 [facility] Comment on above: Performed By: #### C MPX, CDP #### [facility] [address] [place], [place] [phone] Ice Skating Coach: Khadar Tang MD Neutrophil (Seg) 62 % Normal 36-65 [facility] Comment on above: Performed By: #### C MPX, CDP #### [facility] [address] [place], [place] [phone] Ice Skating Coach: Khadar Tang MD NRBC Automated 0.0 per 100 WBC Normal 0.0 [facility] Comment on above: Performed By: #### C MPX, CDP #### [address] [place], [place] [phone] Ice Skating Coach: Khadar Tang MD Platelet mean volume (Bld) [Entitic vol] 8.7 fL Normal 8.1-13.5 [facility] Comment on above: Performed By: #### C MPX, CDP #### [address] [place], [place] [phone] Ice Skating Coach: Khadar Tang MD Platelets (Bld) [#/Vol] 263 10*3/uL Normal 138-453 [facility] Comment on above: Performed By: #### C MPX, CDP #### [address] [place], [place] 7485083 Ice Skating Coach: Khadar Tang MD RBC (Bld) [#/Vol] 3.22 10*6/uL Low 4.21-5.77 [facility] Comment on above: Performed By: #### C MPX, CDP #### [facility] [address] [place], [place] [id number] Ice Skating Coach: Khadar Tang MD WBC (Bld) [#/Vol] 9.0 10*3/uL Normal 3.5-11.3 [facility] Comment on above: Performed By: #### C MPX, CDP #### [facility] [address] [place], [place] 8293883 Ice Skating Coach: Khadar Tang MD Comp Metabolic Pr/rfx MGon 0 - Albumin [Mass/Vol] 2.9 g/dL Low 3.5-5.2 [facility] Comment on above: Performed By: #### C MPX, CDP #### [facility] [address] [place], [place] [phone] Ice Skating Coach: Khadar Tang MD Albumin/Glob Ratio 0.7 Low 1.0-2.5 [facility] Comment on above: Performed By: #### C MPX, CDP #### [facility] [address] [place], [place] 8136583 Ice Skating Coach: Khadar Tang MD Alkaline Phos 89 U/L Normal 40-129 [facility] Comment on above: Performed By: #### C MPX, CDP #### [facility] [address] [place], [place] 6603883 Ice Skating Coach: Khadar Tang MD ALT [Catalytic activity/Vol] 11 U/L Normal 5-41 [facility] Comment on above: Performed By: #### C MPX, CDP #### [facility] [address] [place], [place] [phone] Ice Skating Coach: Khadar Tang MD Anion gap [Moles/Vol] 8 mmol/L Low 9-17 [facility] Comment on above: Performed By: #### C MPX, CDP #### [facility] [address] [place] [address] Ice Skating Coach: Khadar Tang MD AST [Catalytic activity/Vol] 12 U/L Normal <40 [facility] Comment on above: Performed By: #### C MPX, CDP #### [facility] [address] [place], [place] 0703783 Ice Skating Coach: Khadar Tang MD Bilirubin [Mass/Vol] 0.2 mg/dL Low 0.3-1.2 [facility] Comment on above: Performed By: #### C MPX, CDP #### [facility] [address] [place], [place] 6654283 Ice Skating Coach: Khadar Tang MD BUN/CRE Ratio 25 High 9-20 [facility] Comment on above: Performed By: #### C MPX, CDP #### [facility] [address] [place], [place] [phone] Ice Skating Coach: Khadar Tang MD Calcium [Mass/Vol] 9.0 mg/dL Normal 8.6-10.4 [facility] Comment on above: Performed By: #### C MPX, CDP #### [facility] [address] [place] [address] Dr. [place], [place] 0706583 Ice Skating Coach: Khadar Tang MD Chloride [Moles/Vol] 115 mmol/L High 98-107 [facility] Comment on above: Performed By: #### C MPX, CDP #### [facility] [address] [place] [address] Dr. [place], [place] 6347083 Ice Skating Coach: Khadar Tang MD CO2 [Moles/Vol] 17 mmol/L Low 20-31 [facility] Comment on above: Performed By: #### C MPX, CDP #### [facility] [address] [place], [place] 1361883 Ice Skating Coach: Khadar Tang MD Creatinine [Mass/Vol] 1.55 mg/dL High 0.70-1.20 [facility] Comment on above: Performed By: #### C MPX, CDP #### [facility] [address] [place], [place] 9046583 Ice Skating Coach: Khadar Tang MD GFR/1.73 sq M.predicted among non-blacks MDRD (S/P/Bld) [Vol rate/Area] 51 mL/min/{1.73_m2} Low >60 [facility] Comment on above: Result Comment: These [...] By: #### C MPX, CDP #### [facility] [address] [place] [address] [place] [address] Ice Skating Coach: Khadar Tang MD Glucose [Mass/Vol] 119 mg/dL High 70-99 [facility] Comment on above: Performed By: #### C MPX, CDP #### [facility] [address] [place] [address] [place] [address] Ice Skating Coach: Khadar Tang MD Potassium [Moles/Vol] 5.4 mmol/L High 3.7-5.3 [facility] Comment on above: Performed By: #### C MPX, CDP #### [address] [place] [address] Ice Skating Coach: Khadar Tang MD Protein [Mass/Vol] 7.1 g/dL Normal 6.4-8.3 [facility] Comment on above: Performed By: #### C MPX, CDP #### [facility] [address] [place] [address] [place] [address] Ice Skating Coach: Khadar Tang MD Sodium [Moles/Vol] 140 mmol/L Normal 135-144 [facility] Comment on above: Performed By: #### C MPX, CDP #### [facility] [address] [place] [address] [place] [address] Ice Skating Coach: Khadar Tang MD Urea nitrogen [Mass/Vol] 38 mg/dL High 8-23 [facility] Comment on above: Performed By: #### C MPX, CDP #### [facility] [address] [place] [address] Ice Skating Coach: Khadar Tang MD Comprehensive Metabolic Pane l w/ Reflex to MGon 06-23-2022 Albumin [Mass/Vol] 2.9 g/dL Low 3.5 - 5.2 g/dL [facility] Albumin/Globulin [Mass ratio] 0.7 {ratio} Low 1.0 - 2.5 [facility] ALP [Catalytic activity/Vol] 89 U/L 40 - 129 U/L [facility] ALT [Catalytic activity/Vol] 11 U/L 5 - 41 U/L [facility] Anion gap [Moles/Vol] 8 mmol/L Low 9 - 17 mmol/L [facility] AST [Catalytic activity/Vol] 12 U/L NINF - 40 U/L [facility] Bilirubin [Mass/Vol] 0.2 mg/dL Low 0.3 - 1.2 mg/dL [facility] Calcium [Mass/Vol] 9.0 mg/dL 8.6 - 10. 4 mg/dL [facility] Chloride [Moles/Vol] 115 mmol/L High 98 - 107 mmol/L [facility] CO2 [Moles/Vol] 17 mmol/L Low 20 - 31 mmol/L [facility] Creatinine [Mass/Vol] 1.55 mg/dL High 0.70 - 1.20 mg/dL [facility] GFR/1.73 sq M.predicted MDRD (S/P/Bld) [Vol rate/Area] 51 mL/min/{1.73_m2} Low - PINF [facility] Comment on above: These results are [...] 119 mg/dL High 70 - 99 mg/dL [facility] Interpretation and review of laboratory results Abnormal [facility] Potassium [Moles/Vol] 5.4 mmol/L High 3.7 - 5.3 mmol/L [facility] Protein [Mass/Vol] 7.1 g/dL 6.4 - 8.3 g/dL [facility] Sodium [Moles/Vol] 140 mmol/L 135 - 144 mmol/L [facility] Urea nitrogen [Mass/Vol] 38 mg/dL High 8 - 23 mg/dL [facility] Urea nitrogen/Creatinin e (Bld) [Mass ratio] 25 High 9 - 20 [facility] [employer] EKG 12 LeadOrdered By: Michelle de la rosa on 06-23-2022 Atrial Rate 60 BPM [facility] Work Phone: P Hensley 55 degrees [employer] Work Phone: P-R Interval 182 ms [facility] Work Phone: Q-T Interval 388 ms [facility] Work Phone: QRS Duration 88 ms [facility] Work Phone: QTc Calculation (Bazett) 388 ms [facility] Work Phone: R Hensley 15 degrees [facility] Work Phone: T Hensley 40 degrees [facility] Work Phone: Ventricular Rate 60 BPM [employer] Work Phone: [facility] Work Phone: EKG 12 Leadon 06-23-2022 Poor data qualit y, interpretation may be adversely affected Normal sinus rhythm Normal ECG When compared with ECG of 22-JUN-2022 13:14, (unconfirmed) Borderline criteria for Anterolateral infarct are no longer Present Criteria for Inferior infarct are no longer Present T wave inversion no longer evident in Inferior leads Confirmed by Michelle Noe MD ([id number]) on 06/23/2022 3:18:16 PM [facility] Michelle Noe MD - 06/23/2022 Poor data quality, interpretation may be adversely affected Normal sinus rhythm Normal ECG When compared with ECG of 22-JUN-2022 13:14, (unconfirmed) Borderline criteria for Anterolateral infarct are no longer Present Criteria for Inferior infarct are no longer Present T wave inversion no longer evident in Inferior leads Confirmed by Michelle Noe MD ([id number]) on 06/23/2022 3:18:16 PM [facility] Work Phone: EKG Rhythm Stripon 3 [facility] Glucose, Whole Bloodon 06-23 Glucose [Mass/Vol] 230 mg/dL High 74 - 100 mg/dL [facility] Interpretation and review of laboratory results Abnormal [facility] Urinalysison 06-23-2022 Bilirubin Urine Negative NEGATIVE [facility] Color, UA Yellow Yellow [facility] Glucose Auto test strip (U) [Mass/Vol] Negative NEGATIVE [facility] Ketones (U) [Mass/Vol] Negative NEGATIVE [facility] Leukocyte esterase Auto test strip Ql (U) Negative NEGATIVE [facility] Nitrite Auto test strip Ql (U) Negative NEGATIVE [facility] Protein (U) [Mass/Vol] 6.0 mg/dL 5.0 - 9.0 [facility] Protein (U) [Mass/Vol] Negative NEGATIVE [facility] Specific [place], UA 1.020 1.010 - 1.020 [facility] Turbidity UA Clear Clear [facility] Urine Hgb Negative NEGATIVE [facility] Urobilinogen, Urine Normal Normal [facility] Urinalysis, Routineon 2022 Bilirubin, SemiQt,Ur Negative Normal NEG [facility] Comment on above: Performed By: #### U A #### [facility] [address] [place] [address] [address]. [place], [place] [phone] Ice Skating Coach: Khadar Tang MD Blood, Urine Negative Normal NEG [facility] Comment on above: Performed By: #### U A #### [facility] [address] [place] [address] Dr. [place], [place] 468[address] Ice Skating Coach: Khadar Tang MD Clarity (U) Clear Normal CLEAR [facility] Comment on above: Performed By: #### U A #### [facility] [address] [place] [address] Dr. [place], [place] [phone] Ice Skating Coach: Khadar Tang MD Color (U) Yellow Normal YEL [facility] Comment on above: Performed By: #### U A #### [facility] [address] [place] [address] Dr. [place], [facility]83 Ice Skating Coach: Khadar Tang MD Glucose Ql (U) Negative Normal NEG [facility] Comment on above: Performed By: #### U A #### [facility] [address] [place] [address] Dr. [place], [place] [address] Ice Skating Coach: Khadar Tang MD Ketones Ql (U) Negative Normal NEG [facility] Comment on above: Performed By: #### U A #### [facility] [address] [place] [address] Dr. [place], [facility]83 Ice Skating Coach: Khadar Tang MD Leukocyte esterase Test strip Ql (U) Negative Normal NEG [facility] Comment on above: Performed By: #### U A #### [facility] [address] [place] [address] Dr. [place], [facility]83 Ice Skating Coach: Khadar Tang MD Nitrite,Ur Negative Normal NEG [facility] Comment on above: Performed By: #### U A #### [facility] [address] [place], [place] 4907483 Ice Skating Coach: Khadar Tang MD PH,Ur 6.0 Normal 5.0-9.0 [facility] Comment on above: Performed By: #### U A #### [facility] [address] [place], [place] [phone] Ice Skating Coach: Khadar Tang MD Protein Ql (U) Negative Normal NEG [facility] Comment on above: Performed By: #### U A #### [facility] [address] [place], [place] 32[address]83 Ice Skating Coach: Khadar Tang MD Spec. [place],Ur 1.020 Normal 1.010-1.020 [facility] Comment on above: Performed By: #### U A #### [facility] [address] [place], [place] [phone] Ice Skating Coach: Khadar Tang MD Urobilinogen,Ur Normal Normal NORM [facility] Comment on above: Performed By: #### U A #### [facility] [address] [place], [place] [id number] Ice Skating Coach: Khadar Tang MD XR ANKLE RIGHT (MIN [...] Derrick Squires MD 06/23/22 Final result Normal [facility] 1. Nonspecific diffu se subcutaneous edema. 2. Periostitis at the lateral aspect of the fibula distally. There was osteomyelitis in this region previously. This could reflect chronic osteomyelitis. Elsewhere, there is no subcutaneous air or evidence of osteomyelitis. [facility] EXAMINATION: THREE XRAY VIEWS OF THE [...] lesion is noted. Calcaneal spurring appears unchanged. [facility] Derrick Squires MD - 06/23/2022 EXAMINATION: THREE XRAY VIEWS [...] no subcutaneous air or evidence of osteomyelitis. [facility] Work Phone: Radiology Study observation (narrative) [employer] Phone: XR ANKLE RIGHT (MIN 3 VIEWS) Ordered By: Derrick Squires on 06-23-2022 [employer] Phone: Basic Metabolic Panelon 03-2 Anion gap [Moles/Vol] 9 mmol/L 9 - 17 mmol/L [facility] Calcium [Mass/Vol] 9.5 mg/dL 8.6 - 10. 4 mg/dL [facility] Chloride [Moles/Vol] 112 mmol/L High 98 - 107 mmol/L [facility] CO2 [Moles/Vol] 17 mmol/L Low 20 - 31 mmol/L [facility] Creatinine [Mass/Vol] 2 mg/dL High 0.70 - 1.20 mg/dL [facility] GFR/1.73 sq M.predicted MDRD (S/P/Bld) [Vol rate/Area] 38 mL/min/{1.73_m2} Low - PINF [facility] Comment on above: These results are [...] 137 mg/dL High 70 - 99 mg/dL [facility] Interpretation and review of laboratory results Abnormal [facility] Potassium [Moles/Vol] 6.1 mmol/L Critically high 3.7 - 5.3 mmol/L [facility] Sodium [Moles/Vol] 138 mmol/L 135 - 144 mmol/L [facility] Urea nitrogen [Mass/Vol] 45 mg/dL High 8 - 23 mg/dL [facility] Urea nitrogen/Creatinin e (Bld) [Mass ratio] 23 High 9 - 20 [facility] Basic Metabolic Profon 06-22 Potassium [Moles/Vol] 6.1 mmol/L Critically high 3.7-5.3 [facility] Comment on above: Performed By: #### T BRENDA #### [facility] [address] [place] [address] Ice Skating Coach: Khadar Tang MD Anion gap [Moles/Vol] 9 mmol/L Normal 9-17 [facility] Comment on above: Performed By: #### T ROPI #### [facility] [address] [place], [place] [phone] Ice Sk[employer] Coach: Khadar Tang MD BUN/CRE Ratio 23 High 9-20 [facility] Comment on above: Performed By: #### T ROPI #### [facility] [address] [place], [place] 0155183 Ice Skating Coach: Khadar Tang MD Calcium [Mass/Vol] 9.5 mg/dL Normal 8.6-10.4 [facility] Comment on above: Performed By: #### T ROPI #### [facility] [address] [place], [place] 2327783 Ice Sk[employer] Coach: Khadar Tang MD Chloride [Moles/Vol] 112 mmol/L High 98-107 [facility] Comment on above: Performed By: #### T ROPI #### [facility] [address] [place], [place] 6979383 Ice [employer] Coach: Khadar aTng MD CO2 [Moles/Vol] 17 mmol/L Low 20-31 [facility] Comment on above: Performed By: #### T ROPI #### [facility] [address] [place], [place] 0754283 Ice Sk[employer] Coach: Khadar Tang MD Creatinine [Mass/Vol] 2.00 mg/dL High 0.70-1.20 [facility] Comment on above: Performed By: #### T ROPI #### [facility] [address] [place], [place] [phone] [employer] Coach: Khadar Tang MD GFR/1.73 sq M.predicted among non-blacks MDRD (S/P/Bld) [Vol rate/Area] 38 mL/min/{1.73_m2} Low >60 [facility] Comment on above: Result Comment: These [...] Performed By: #### T ROPI #### [facility] [address] [place] [address] Ice Skating Coach: Khadar Tang MD Glucose [Mass/Vol] 137 mg/dL High 70-99 [facility] Comment on above: Performed By: #### T ROPI #### [facility] [address] [place], [place] [phone] [employer] Coach: Khadar Tang MD Sodium [Moles/Vol] 138 mmol/L Normal 135-144 [facility] Comment on above: Performed By: #### T ROPI #### [facility] [address] [place] [address] Ice Skating Coach: Khadar Tang MD Urea nitrogen [Mass/Vol] 45 mg/dL High 8-23 [facility] Comment on above: Performed By: #### T ROPI #### [facility] [address] [place], [place] [address] [employer] Skating Coach: Khadar Tang MD CBC with Auto Differentialon 06-22-2022 Absolute Eos # 0.86 High [facility] Absolute Immature Granulocyte 0.09 [facility] Absolute Lymph # 1.97 [facility] Absolute [place] # 0.88 [facility] Basophils (Bld) [#/Vol] 0.05 10*3/uL [facility] Basophils/100 WBC (Bld) 0 % 0 - 2 % [facility] Eosinophils/100 WBC (Bld) 7 % High 1 - 4 % [facility] Hematocrit (Bld) [Volume fraction] 27.6 % Low 40.7 - 50.3 % [facility] Hemoglobin (Bld) [Mass/Vol] 8.3 g/dL Low 13.0 - 17.0 g/dL [facility] Immature granulocytes/100 WBC (Bld) 1 % High 0 [facility] Interpretation and review of laboratory results Abnormal [facility] Lymphocytes/100 WBC (Bld) 15 % Low 24 - 43 % [facility] MCH (RBC) [Entitic mass] 23.3 pg Low 25.2 - 33.5 pg [facility] MCHC (RBC) [Mass/Vol] 30.1 g/dL 28.4 - 34.8 g/dL [facility] MCV (RBC) [Entitic vol] 77.5 fL Low 82.6 - 102.9 fL [facility] Monocytes/100 WBC (Bld) 7 % 3 - 12 % [facility] NRBC Automated 0.0 0.0 per 100 WBC [facility] Platelet distribution width (Bld) [Ratio] 16.2 % High 11.8 - 14.4 % [facility] Platelet mean volume (Bld) [Entitic vol] 8.6 fL 8.1 - 13.5 fL [facility] Platelets (Bld) [#/Vol] 338 10*3/uL [facility] RBC (Bld) [#/Vol] 3.56 10*6/uL Low 4.21 - 5.7 7 m/uL [facility] Segmented neutrophils/100 WBC (Bld) 70 % High 36 - 65 % [facility] Segs Absolute 8.91 High [facility] WBC (Bld) [#/Vol] 12.8 10*3/uL High [facility] Absolute Eos # 0.84 High [facility] Absolute Immature Granulocyte 0.06 [facility] Absolute Lymph # 1.69 [facility] Absolute [place] # 0.82 [facility] Basophils (Bld) [#/Vol] 0.04 10*3/uL [facility] Basophils/100 WBC (Bld) 0 % 0 - 2 % [facility] Eosinophils/100 WBC (Bld) 7 % High 1 - 4 % [facility] Hematocrit (Bld) [Volume fraction] 27.1 % Low 40.7 - 50.3 % [facility] Hemoglobin (Bld) [Mass/Vol] 8.7 g/dL Low 13.0 - 17.0 g/dL [facility] Immature granulocytes/100 WBC (Bld) 1 % High 0 [facility] Interpretation and review of laboratory results Abnormal [facility] Lymphocytes/100 WBC (Bld) 14 % Low 24 - 43 % [facility] MCH (RBC) [Entitic mass] 25.3 pg 25.2 - 33.5 pg [facility] MCHC (RBC) [Mass/Vol] 32.1 g/dL 28.4 - 34.8 g/dL [facility] MCV (RBC) [Entitic vol] 78.8 fL Low 82.6 - 102.9 fL [facility] Monocytes/100 WBC (Bld) 7 % 3 - 12 % [facility] NRBC Automated 0.0 0.0 per 100 WBC [facility] Platelet distribution width (Bld) [Ratio] 16.4 % High 11.8 - 14.4 % [facility] Platelet mean volume (Bld) [Entitic vol] 9.4 fL 8.1 - 13.5 fL [facility] Platelets (Bld) [#/Vol] 345 10*3/uL [facility] RBC (Bld) [#/Vol] 3.44 10*6/uL Low 4.21 - 5.7 7 m/uL [facility] Segmented neutrophils/100 WBC (Bld) 71 % High 36 - 65 % [facility] Segs Absolute 9.06 High [facility] WBC (Bld) [#/Vol] 12.5 10*3/uL High [facility] CBC with Diffon 06-22-2022 Abs. Basophil 0.05 k/uL Normal 0.00-0.20 [facility] Comment on above: Performed By: #### C DP, MG, CP #### [facility] [address] [place] [address] Ice Skating Coach: Khadar Tang MD Abs.Imm.Granulocyt e 0.09 k/uL Normal 0.00-0.30 [facility] Comment on above: Performed By: #### C DP, MG, CP #### [address] [place], [facility]83 Ice Skating Coach: Khadar Tang MD Abs.Neutrophil (Seg) 8.91 k/uL High 1.50-8.10 [facility] Comment on above: Performed By: #### C DP, MG, CP #### [address] [place], [facility]83 Ice Skating Coach: Khadar Tang MD Basophils/100 WBC (Bld) 0 % Normal 0-2 [facility] Comment on above: Performed By: #### C DP MG, CP #### [address] [place] [address] Ice Skating Coach: Khadar Tang MD Eosinophils (Bld) [#/Vol] 0.86 10*3/uL High 0.00-0.44 [facility] Comment on above: Performed By: #### C DP MG, CP #### [address] [place], [facility]83 Ice Skating Coach: Khadar Tang MD Eosinophils/100 WBC (Bld) 7 % High 1-4 [facility] Comment on above: Performed By: #### C DP MG, CP #### [address] [place], [facility]83 Ice Skating Coach: Khadar Tang MD Erythrocyte distribution width (RBC) [Ratio] 16.2 % High 11.8-14.4 [facility] Comment on above: Performed By: #### C DP MG, CP #### [address] [place] [address] Ice Skating Coach: Khadar Tang MD Hematocrit (Bld) [Volume fraction] 27.6 % Low 40.7-50.3 [facility] Comment on above: Performed By: #### C DP, MG, CP #### [facility] [address] [place] [address] Dr. [place], [place] [address] Ice Skating Coach: Khadar Tang MD Hemoglobin (Bld) [Mass/Vol] 8.3 g/dL Low 13.0-17.0 [facility] Comment on above: Performed By: #### C DP, MG, CP #### [facility] [address] [place] [address] Dr. [place], [place] [address] Ice Skating Coach: Khadar Tang MD Immature granulocytes/100 WBC (Bld) 1 % High 0 [facility] Comment on above: Performed By: #### C DP, MG, CP #### [address] [place], [place] [address] Ice Skating Coach: Khadar Tang MD Lymphocytes (Bld) [#/Vol] 1.97 10*3/uL Normal 1.10-3.70 [facility] Comment on above: Performed By: #### C DP, MG, CP #### [address] [place], [place] [address] Ice Skating Coach: Khadar Tang MD Lymphocytes/100 WBC (Bld) 15 % Low 24-43 [facility] Comment on above: Performed By: #### C DP, MG, CP #### [address] [place], [place] [address] Ice Skating Coach: Khadar Tang MD MCH (RBC) [Entitic mass] 23.3 pg Low 25.2-33.5 [facility] Comment on above: Performed By: #### C DP, MG, CP #### [address] [place], [facility]83 Ice Skating Coach: Khadar Tang MD MCHC (RBC) [Mass/Vol] 30.1 g/dL Normal 28.4-34.8 [facility] Comment on above: Performed By: #### C DP, MG, CP #### [facility] [address] [place], [place] [id number] Ice Skating Coach: Khadar Tang MD MCV (RBC) [Entitic vol] 77.5 fL Low 82.6-102.9 [facility] Comment on above: Performed By: #### C DP, MG, CP #### [facility] [address] [place], [place] [id number] Ice Skating Coach: Khadar Tang MD Monocytes (Bld) [#/Vol] 0.88 10*3/uL Normal 0.10-1.20 [facility] Comment on above: Performed By: #### C DP, MG, CP #### [address] [place] [address] Ice Skating Coach: Khadar Tang MD Monocytes/100 WBC (Bld) 7 % Normal 3-12 [facility] Comment on above: Performed By: #### C DP, MG, CP #### [address] [place], [place] [id number] Ice Skating Coach: Khadar Tang MD Neutrophil (Seg) 70 % High 36-65 [facility] Comment on above: Performed By: #### C DP, MG, CP #### [address] [place] [address] Ice Skating Coach: Khadar Tang MD NRBC Automated 0.0 per 100 WBC Normal 0.0 [facility] Comment on above: Performed By: #### C DP, MG, CP #### [address] [place] [address] Ice Skating Coach: Khadar Tang MD Platelet mean volume (Bld) [Entitic vol] 8.6 fL Normal 8.1-13.5 [facility] Comment on above: Performed By: #### C DP, MG, CP #### [address] [place], [facility]83 Ice Skating Coach: Khadar Tang MD Platelets (Bld) [#/Vol] 338 10*3/uL Normal 138-453 [facility] Comment on above: Performed By: #### C ZANDER MG, CP #### [facility] [address] [place] [address] Dr. [place], [place] [address] Ice Skating Coach: Khadar Tang MD RBC (Bld) [#/Vol] 3.56 10*6/uL Low 4.21-5.77 [facility] Comment on above: Performed By: #### C ZANDER MG, CP #### [address] [place], [place] [address] Ice Skating Coach: Khadar Tang MD WBC (Bld) [#/Vol] 12.8 10*3/uL High 3.5-11.3 [facility] Comment on above: Performed By: #### C ZANDER MG, CP #### [address] [place], [facility]83 Ice Skating Coach: Khadar Tang MD Abs. Basophil 0.04 k/uL Normal 0.00-0.20 [facility] Comment on above: Performed By: #### T ROPI #### [address] [place], [place] [address] Ice Skating Coach: Khadar Tang MD Abs.Imm.Granulocyt e 0.06 k/uL Normal 0.00-0.30 [facility] Comment on above: Performed By: #### T ROPI #### [address] [place], [facility]83 Ice Skating Coach: Khadar Tang MD Abs.Neutrophil (Seg) 9.06 k/uL High 1.50-8.10 [facility] Comment on above: Performed By: #### T ROPI #### [address] [place], [facility]83 Ice Skating Coach: Khadar Tang MD Basophils/100 WBC (Bld) 0 % Normal 0-2 [facility] Comment on above: Performed By: #### T ROPI #### [facility] [address] [place], [place] [phone] Ice Skating Coach: Khadar Tang MD Eosinophils (Bld) [#/Vol] 0.84 10*3/uL High 0.00-0.44 [facility] Comment on above: Performed By: #### T ROPI #### [facility] [address] [place] [address] Ice Skating Coach: Khadar Tang MD Eosinophils/100 WBC (Bld) 7 % High 1-4 [facility] Comment on above: Performed By: #### T ROPI #### [address] [place], [place] [phone] Ice Skating Coach: Khadar Tang MD Erythrocyte distribution width (RBC) [Ratio] 16.4 % High 11.8-14.4 [facility] Comment on above: Performed By: #### T ROPI #### [address] [place], [place] [address]83 Ice Skating Coach: Khadar Tang MD Hematocrit (Bld) [Volume fraction] 27.1 % Low 40.7-50.3 [facility] Comment on above: Performed By: #### T ROPI #### [facility] [address] [place] [address] Dr. [place], [place] [phone] Ice Skating Coach: Khadar Tang MD Hemoglobin (Bld) [Mass/Vol] 8.7 g/dL Low 13.0-17.0 [facility] Comment on above: Performed By: #### T ROPI #### [address] [place], [place] [phone] Ice Skating Coach: Khadar Tang MD Immature granulocytes/100 WBC (Bld) 1 % High 0 [facility] Comment on above: Performed By: #### T ROPI #### [facility] [address] [place] [address] Ice Skating Coach: hKadar Tang MD Lymphocytes (Bld) [#/Vol] 1.69 10*3/uL Normal 1.10-3.70 [facility] Comment on above: Performed By: #### T ROPI #### [facility] [address] [place], [facility]83 Ice Skating Coach: Khadar Tang MD Lymphocytes/100 WBC (Bld) 14 % Low 24-43 [facility] Comment on above: Performed By: #### T ROPI #### [address] [place], [facility]83 Ice Skating Coach: Khadar Tang MD MCH (RBC) [Entitic mass] 25.3 pg Normal 25.2-33.5 [facility] Comment on above: Performed By: #### T ROPI #### [address] [place], [facility]83 Ice Skating Coach: Khadar Tang MD MCHC (RBC) [Mass/Vol] 32.1 g/dL Normal 28.4-34.8 [facility] Comment on above: Performed By: #### T ROPI #### [address] [place], [facility]83 Ice Skating Coach: Khadar Tang MD MCV (RBC) [Entitic vol] 78.8 fL Low 82.6-102.9 [facility] Comment on above: Performed By: #### T ROPI #### [facility] [address] [place] [address] [place] [address] Ice Skating Coach: Khadar Tang MD Monocytes (Bld) [#/Vol] 0.82 10*3/uL Normal 0.10-1.20 [facility] Comment on above: Performed By: #### T ROPI #### [facility] [address] [place] [address] Dr. [place], [place] [phone] Ice Skating Coach: Khadar Tang MD Monocytes/100 WBC (Bld) 7 % Normal 3-12 [facility] Comment on above: Performed By: #### T ROPI #### [facility] [address] [place], [place] [address]83 Ice Skating Coach: Khadar Tang MD Neutrophil (Seg) 71 % High 36-65 [facility] Comment on above: Performed By: #### T ROPI #### [facility] [address] [place], [place] 146[address]83 Ice Skating Coach: Khadar Tang MD NRBC Automated 0.0 per 100 WBC Normal 0.0 [facility] Comment on above: Performed By: #### T ROPI #### [address] [place], [place] [address]83 Ice Skating Coach: Khadar Tang MD Platelet mean volume (Bld) [Entitic vol] 9.4 fL Normal 8.1-13.5 [facility] Comment on above: Performed By: #### T ROPI #### [address] [place], [place] [address]59[address]83 Ice Skating Coach: Khadar Tang MD Platelets (Bld) [#/Vol] 345 10*3/uL Normal 138-453 [facility] Comment on above: Performed By: #### T ROPI #### [address] [place], [place] [phone] Ice Skating Coach: Khadar Tang MD RBC (Bld) [#/Vol] 3.44 10*6/uL Low 4.21-5.77 [facility] Comment on above: Performed By: #### T ROPI #### [address] [place], [place] [phone] Ice Skating Coach: Khadar Tang MD WBC (Bld) [#/Vol] 12.5 10*3/uL High 3.5-11.3 [facility] Comment on above: Performed By: #### T [facility] #### [facility] [address] [place] [address] Ice Skating Coach: Khadar Tang MD [facility] 06-22-2022 Albumin [Mass/Vol] 3.2 g/dL Low 3.5 - 5.2 g/dL [facility] Albumin/Globulin [Mass ratio] 0.7 {ratio} Low 1.0 - 2.5 [facility] ALP [Catalytic activity/Vol] 101 U/L 40 - 129 U/L [facility] ALT [Catalytic activity/Vol] 8 U/L 5 - 41 U/L [facility] Anion gap [Moles/Vol] 11 mmol/L 9 - 17 mmol/L [facility] AST [Catalytic activity/Vol] 13 U/L NINF - 40 U/L [facility] Bilirubin [Mass/Vol] mg/dL Low 0.3 - 1.2 mg/dL [facility] Calcium [Mass/Vol] 9.1 mg/dL 8.6 - 10. 4 mg/dL [facility] Chloride [Moles/Vol] 110 mmol/L High 98 - 107 mmol/L [facility] CO2 [Moles/Vol] 16 mmol/L Low 20 - 31 mmol/L [facility] Creatinine [Mass/Vol] 1.93 mg/dL High 0.70 - 1.20 mg/dL [facility] GFR/1.73 sq M.predicted MDRD (S/P/Bld) [Vol rate/Area] 39 mL/min/{1.73_m2} Low - PINF [facility] Comment on above: These results are [...] 148 mg/dL High 70 - 99 mg/dL [facility] Interpretation and review of laboratory results Abnormal [facility] Potassium [Moles/Vol] 6.3 mmol/L Critically high 3.7 - 5.3 mmol/L [facility] Protein [Mass/Vol] 8.1 g/dL 6.4 - 8.3 g/dL [facility] Sodium [Moles/Vol] 137 mmol/L 135 - 144 mmol/L [facility] Urea nitrogen [Mass/Vol] 49 mg/dL High 8 - 23 mg/dL [facility] Urea nitrogen/Creatinin e (Bld) [Mass ratio] 25 High 9 - 20 [facility] Comp Metabolic Profon 2022 Bilirubin [Mass/Vol] mg/dL Low 0.3-1.2 [facility] Comment on above: Performed By: #### C DP, MG, CP #### [facility] [address] [place] [address] [place] [address] Ice Skating Coach: Khadar Tang MD Potassium [Moles/Vol] 6.3 mmol/L Critically high 3.7-5.3 [facility] Comment on above: Performed By: #### C DP, MG, CP #### [facility] [address] [place] [address] [place] [address] Ice Skating Coach: Khadar Tang MD Albumin [Mass/Vol] 3.2 g/dL Low 3.5-5.2 [facility] Comment on above: Performed By: #### C DP, MG, CP #### [facility] [address] [place] [address] Ice Skating Coach: Khadar Tang MD Albumin/Glob Ratio 0.7 Low 1.0-2.5 [facility] Comment on above: Performed By: #### C DP, MG, CP #### [facility] [address] [place] [address] Ice Skating Coach: Khadar Tang MD Alkaline Phos 101 U/L Normal 40-129 [facility] Comment on above: Performed By: #### C DP, MG, CP #### [facility] [address] [place], [place] [phone] Ice Skating Coach: Khadar Tang MD ALT [Catalytic activity/Vol] 8 U/L Normal 5-41 [facility] Comment on above: Performed By: #### C DP, MG, CP #### [facility] [address] [place] [address] Ice Skating Coach: Khadar Tang MD Anion gap [Moles/Vol] 11 mmol/L Normal 9-17 [facility] Comment on above: Performed By: #### C DP, MG, CP #### [facility] [address] [place], [place] [phone] Ice Skating Coach: Khadar Tang MD AST [Catalytic activity/Vol] 13 U/L Normal <40 [facility] Comment on above: Performed By: #### C DP, MG, CP #### [facility] [address] [place], [place] [address]48[address]83 Ice Skating Coach: Khadar Tang MD BUN/CRE Ratio 25 High 9-20 [facility] Comment on above: Performed By: #### C DP, MG, CP #### [facility] [address] [place], [place] 017[address]83 Ice Skating Coach: Khadar Tang MD Calcium [Mass/Vol] 9.1 mg/dL Normal 8.6-10.4 [facility] Comment on above: Performed By: #### C DP, MG, CP #### [facility] [address] [place], [place] [phone] Ice Skating Coach: Khadar Tang MD Chloride [Moles/Vol] 110 mmol/L High 98-107 [facility] Comment on above: Performed By: #### C DP, MG, CP #### [facility] [address] [place] [address] Ice Skating Coach: Khadar Tang MD CO2 [Moles/Vol] 16 mmol/L Low 20-31 [facility] Comment on above: Performed By: #### C DP, MG, CP #### [facility] [address] [place] [address] Ice Skating Coach: Khadar Tang MD Creatinine [Mass/Vol] 1.93 mg/dL High 0.70-1.20 [facility] Comment on above: Performed By: #### C DP, MG, CP #### [facility] [address] [place] [address] Ice Skating Coach: Khadar Tang MD GFR/1.73 sq M.predicted among non-blacks MDRD (S/P/Bld) [Vol rate/Area] 39 mL/min/{1.73_m2} Low >60 [facility] Comment on above: Result Comment: These [...] #### C DP, MG, CP #### [facility] [address] [place] [address] [place] [address] Ice Skating Coach: Khadar Tang MD Glucose [Mass/Vol] 148 mg/dL High 70-99 [facility] Comment on above: Performed By: #### C DP, MG, CP #### [facility] [address] [place] [address] Ice Skating Coach: Khadar Tang MD Protein [Mass/Vol] 8.1 g/dL Normal 6.4-8.3 [facility] Comment on above: Performed By: #### C DP, MG, CP #### [facility] [address] [place], [place] [id number] Ice Skating Coach: Khadar Tang MD Sodium [Moles/Vol] 137 mmol/L Normal 135-144 [facility] Comment on above: Performed By: #### C DP, MG, CP #### [facility] [address] [place] [address] Ice Skating Coach: Khadar Tang MD Urea nitrogen [Mass/Vol] 49 mg/dL High 8-23 [facility] Comment on above: Performed By: #### C DP, MG, CP #### [facility] [address] [place] [address] Ice Skating Coach: Khadar Tang MD EKG 12 LeadOrdered By: Michelle de la rosa on 06-22-2022 Atrial Rate 58 BPM [employer] Work Phone: P Hensley 66 degrees [employer] Work Phone: P-R Interval 148 ms [employer] Work Phone: Q-T Interval 394 ms [employer] Work Phone: QRS Duration 94 ms [employer] Work Phone: QTc Calculation (Bazett) 386 ms [employer] Work Phone: R Hensley 64 degrees [employer] Work Phone: T Hensley -8 degrees [employer] Work Phone: Ventricular Rate 58 BPM [employer] Work Phone: [employer] Work Phone: EKG 12 Leadon 06-22-2022 Sinus bradycardia Inferior infarct , age undetermined Possible Anterolateral infarct , age undetermined Abnormal ECG When compared with ECG of 24-APR-2015 18:25, Vent. rate has decreased BY 39 BPM Borderline criteria for Anterolateral infarct are now Present T wave inversion now evident in Inferior leads QT has shortened Confirmed by Michelle Noe MD ([id number]) on 06/22/2022 10:09:31 PM [facility] Michelle Noe MD - 06/22/2022 Sinus bradycardia Inferior infarct , age undetermined Possible Anterolateral infarct , age undetermined Abnormal ECG When compared with ECG of 24-APR-2015 18:25, Vent. rate has decreased BY 39 BPM Borderline criteria for Anterolateral infarct are now Present T wave inversion now evident in Inferior leads QT has shortened Confirmed by Michelle Noe MD ([id number]) on 06/22/2022 10:09:31 PM [facility] Work Phone: Magnesiumon 06-22-2022 Magnesium [Mass/Vol] 2.0 mg/dL Normal 1.6-2.6 [facility] Comment on above: Performed By: #### C DP, MG, CP #### [facility] [address] [place] [address] Ice Skating Coach: Khadar Tang MD Magnesium [Mass/Vol] 2.0 mg/dL 1.6 - 2.6 mg/dL [facility] CT PELVIS WO CONon 2 CT [...] JESUSITA PAPPAS Date: 2022-03-14 09:50 Normal [facility] GLYCOHEMOGLOBIN A1Con 2021 ADA RECOMMENDATION ADA THERAPEUTIC TARG ET 6.0 - 7.0 ACTION SUGGESTED > 7.0 Normal [facility] Comment on above: Performed By: #### A 1C #### [facility] [address] [address] [address] Juan Smith Glucose [Mass/Vol] 180 mg/dL Normal [facility] Comment on above: Performed By: #### A 1C #### [facility] [address] [address] [address] Juan Smith HbA1c (Bld) [Mass fraction] 7.9 % Critically high <=6.0 [facility] Comment on above: Performed By: #### A 1C #### [facility] [address] [address] [address] Juan Smith Cult,Aerobe/Anaerobeon 04-15 Neutrophils Specimen Description .TISSUE RIGHT MEDIAL HEEL POST IRRIGATIONSpecial Requests NOT REPORTEDDirect Exam NO NEUTROPHILS SEEN NO BACTERIA SEEN Culture METHICILLIN RESISTANT STAPHYLOCOCCUS AUREUS SCANT GROWTH For susceptibility, refer to previous culture. STREPTOCOCCI, BETA HEM[employer] C SCANT GROWTH DIPHTHEROIDS SCANT GROWTH NO ANAEROBIC ORGANISMS ISOLATED AT 5 DAYS Report Status FINAL 04/15/2017 [facility] Comment on above: Performed By: #### A ANC ####[address] [id number] Neutrophils Specimen Description .TISSUE RIGHT ANKLE PRE IRRIGATIONSpecial Requests NOT REPORTEDDirect Exam NO NEUTROPHILS SEEN RARE GRAM POSITIVE COCCI IN PAIRS Culture METHICILLIN RESISTANT STAPHYLOCOCCUS AUREUS LIGHT GROWTH For susceptibility, refer to previous culture. STREPTOCOCCI, [employer] C SCANT GROWTH NO ANAEROBIC ORGANISMS ISOLATED AT 5 DAYS Report Status FINAL 04/15/2017 [facility] Comment on above: Performed By: #### A ANC ####[address] [id number] Neutrophils Specimen Description .TISSUE RIGHT MEDIAL HEEL PRE IRRIGATIONSpecial Requests NOT REPORTEDDirect Exam NO NEUTROPHILS SEEN NO BACTERIA SEEN Culture STREPTOCOCCI, [employer]A HEM[employer] GROUP C LIGHT GROWTH METHICILLIN RESISTANT STAPHYLOCOCCUS AUREUS SCANT GROWTH For susceptibility, refer to previous culture. DIPHTHEROIDS LIGHT GROWTH NO ANAEROBIC ORGANISMS ISOLATED AT 5 DAYS Report Status FINAL 04/15/2017 [facility] Comment on above: Performed By: #### A ANC ####[address] [address] Basic Metabolic Profon 04-13 (cont.) Normal [facility] Comment on above: Result Comment: Aver age GFR for 50-59 years old: 93 mL/min/1.73sq mChronic Kidney Disease: <60 mL/min/1.73sq mKidney failure: <15 mL/min/1.73sq meGFR calculated using average adult body mass. Additional eGFR calculator available at:http://[email or web address]/multiple_[email or web address] 9394008 ([phone] Performed By: #### C DP, CMPX, CRP, SED, GLYHGB ####[facility] [place] [id number] Anion gap 11 mmol/L Normal - [facility] Comment on above: Performed By: #### C DP, CMPX, CRP, SED, GLYHGB ####[address] [address] Calcium 8.7 mg/dL Normal 8.6-10.4 [facility] Comment on above: Performed By: #### C DP, CMPX, CRP, SED, GLYHGB ####[address] [address] Chloride 106 mmol/L Normal 98-107 [facility] Comment on above: Performed By: #### C DP, CMPX, CRP, SED, GLYHGB ####[address] [address] CO2 22 mmol/L Normal 20-31 [facility] Comment on above: Performed By: #### C DP, CMPX, CRP, SED, GLYHGB ####[address] [address] Creatinine 1.04 mg/dL Normal 0.70-1.20 [facility] Comment on above: Performed By: #### C DP, CMPX, CRP, SED, GLYHGB ####[address] [address] eGFR (non-black) mL/min/{1.73_m2} Normal >60 [facility] Comment on above: Performed By: #### C DP, CMPX, CRP, SED, GLYHGB ####[address] [place] [address] Glucose mass conc 174 mg/dL High 70-99 [facility] Comment on above: Performed By: #### C DP, CMPX, CRP, SED, GLYHGB ####[address] [address] Potassium molar conc 4.1 mmol/L Normal 3.7-5.3 [facility] Comment on above: Performed By: #### C DP, CMPX, CRP, SED, GLYHGB ####[address] [address] Sodium 139 mmol/L Normal 135-144 [facility] Comment on above: Performed By: #### C DP, CMPX, CRP, SED, GLYHGB ####[address] [address] Urea nitrogen 16 mg/dL Normal 6-20 [facility] Comment on above: Performed By: #### C DP, CMPX, CRP, SED, GLYHGB ####[address] [address] BUN/CRE Ratio NOT REPORTED Normal - [facility] Comment on above: Performed By: #### C DP, CMPX, CRP, SED, GLYHGB ####[address] [address] Staging: NOT REPORTED Normal [facility] Comment on above: Performed By: #### C DP, CMPX, CRP, SED, GLYHGB ####[address] [address] CBC with Diffon 04-13-2017 Abs. Basophil <0.03 Normal 0.00-0.20 [facility] Comment on above: Performed By: #### C DP, CMPX, CRP, SED, GLYHGB ####[address] [address] Abs.Neutrophil (Seg) 4.97 k/uL Normal 1.50-8.10 [facility] Comment on above: Performed By: #### C DP, CMPX, CRP, SED, GLYHGB ####[address] [address] Basophils/100 WBC Auto (Bld) 0 % Normal 0-2 [facility] Comment on above: Performed By: #### C DP, CMPX, CRP, SED, GLYHGB ####[address] [address] Eosinophils 0.24 10*3/uL Normal 0.00-0.44 [facility] Comment on above: Performed By: #### C DP, CMPX, CRP, SED, GLYHGB ####[address] [address] Eosinophils/100 leukocytes 3 % Normal 1-4 [facility] Comment on above: Performed By: #### C DP, CMPX, CRP, SED, GLYHGB ####[address] [address] Erythrocyte distribution width Auto Ratio (RBC) 14.8 % High 11.8-14.4 [facility] Comment on above: Performed By: #### C DP, CMPX, CRP, SED, GLYHGB ####[address] [address] Erythrocyte morphology ANISOCYTOSIS PRESENT Normal [facility] Comment on above: Result Comment: [address] [address] Performed By: #### C DP, CMPX, CRP, SED, GLYHGB ####[address] [address] Erythrocytes (RBC) 0.0 per 100 WBC Normal 0.0 M [facility] Comment on above: Performed By: #### C DP, CMPX, CRP, SED, GLYHGB ####[address] [address] Erythrocytes (RBC) 3.42 10*6/uL Low 4.21-5.77 [facility] Comment on above: Performed By: #### C DP, CMPX, CRP, SED, GLYHGB ####[address] [address] Granulocytes/100 WBC (Bld) 0.19 k/uL Normal 0.00-0.30 [facility] Comment on above: Performed By: #### C DP, CMPX, CRP, SED, GLYHGB ####[address] [address] Hematocrit (HCT) 29.4 % Low 40.7-50.3 [facility] Comment on above: Performed By: #### C DP, CMPX, CRP, SED, GLYHGB ####[address] [address] Hemoglobin mass conc (Bld) 8.8 g/dL Low 13.0-17.0 [facility] Comment on above: Performed By: #### C DP, CMPX, CRP, SED, GLYHGB ####[address] [address] Immature granulocytes #/vol (Bld) 2 % High 0 [facility] Comment on above: Performed By: #### C DP, CMPX, CRP, SED, GLYHGB ####[address] [address] Lymphocytes 2.00 10*3/uL Normal 1.10-3.70 [facility] Comment on above: Performed By: #### C DP, CMPX, CRP, SED, GLYHGB ####[address] [address] Lymphocytes/100 leukocytes 25 % Normal 24-43 [facility] Comment on above: Performed By: #### C DP, CMPX, CRP, SED, GLYHGB ####[address] [address] MCH 25.7 pg Normal 25.2-33.5 [facility] Comment on above: Performed By: #### C DP, CMPX, CRP, SED, GLYHGB ####[address] [address] MCHC mass conc (RBC) 29.9 g/dL Normal 28.4-34.8 [facility] Comment on above: Performed By: #### C DP, CMPX, CRP, SED, GLYHGB ####[address] [address] MCV 86.0 fL Normal 82.6-102.9 [facility] Comment on above: Performed By: #### C DP, CMPX, CRP, SED, GLYHGB ####[address] [address] Monocytes 0.53 10*3/uL Normal 0.10-1.20 [facility] Comment on above: Performed By: #### C DP, CMPX, CRP, SED, GLYHGB ####[address] [address] Monocytes/100 leukocytes 7 % Normal 3-12 [facility] Comment on above: Performed By: #### C DP, CMPX, CRP, SED, GLYHGB ####[address] [address] Neutrophil (Seg) 63 % Normal 36-65 [facility] Comment on above: Performed By: #### C DP, CMPX, CRP, SED, GLYHGB ####[address] [address] Platelet mean volume (PMV) 9.9 fL Normal 8.1-13.5 [facility] Comment on above: Performed By: #### C DP, CMPX, CRP, SED, GLYHGB ####[address] [place] [address] Platelets 257 10*3/uL Normal 138-453 [facility] Comment on above: Performed By: #### C DP, CMPX, CRP, SED, GLYHGB ####[facility] [address] [place] [address] WBC (Leukocytes) 8.0 10*3/uL Normal 3.5-11.3 [facility] Comment on above: Performed By: #### C DP, CMPX, CRP, SED, GLYHGB ####[facility] [address] [place] [address] Auto Diff Performed NOT REPORTED Normal [facility] Comment on above: Performed By: #### C DP, CMPX, CRP, SED, GLYHGB ####[address] [address] Platelets NOT REPORTED Normal [facility] Comment on above: Performed By: #### C DP, CMPX, CRP, SED, GLYHGB ####[facility] [address] [place] [address] WBC Morphology NOT REPORTED Normal [facility] Comment on above: Performed By: #### C DP, CMPX, CRP, SED, GLYHGB ####[address] [address] Discharge Summaryon 04-13-19 18 HIM IP Note OR Cheese Supervisor Normal [facility] Plan of Careon 04-13-2017 HIM IP Note OR Cheese Supervisor Normal [facility] HIM IP Note OR Cheese Supervisor Normal [facility] Progress Noteon 04-13-2017 HIM IP Note OR Cheese Supervisor Normal [facility] HIM IP Note OR Cheese Supervisor Normal [facility] HIM IP Note OR Cheese Supervisor Normal [facility] HIM IP Note OR Cheese Supervisor Normal [facility] HIM IP Note OR Cheese Supervisor Normal [facility] HIM IP Note OR Cheese Supervisor Normal [facility] Basic Metabolic Profon 04-12 (cont.) Normal [facility] Comment on above: Result Comment: Aver age GFR for 50-59 years old: 93 mL/min/1.73sq mChronic Kidney Disease: <60 mL/min/1.73sq mKidney failure: <15 mL/min/1.73sq meGFR calculated using average adult body mass. Additional eGFR calculator available at:[email or web address] [address] [place] [address] Performed By: #### C DP, CMPX, CRP, SED, GLYHGB ####[facility] [address] [place] [address] Anion gap 8 mmol/L Low 9-17 [facility] Comment on above: Performed By: #### C DP, CMPX, CRP, SED, GLYHGB ####[facility] [address] [place] [address] Calcium 8.8 mg/dL Normal 8.6-10.4 [facility] Comment on above: Performed By: #### C DP, CMPX, CRP, SED, GLYHGB ####[facility] [address] [place] [address] Chloride 107 mmol/L Normal 98-107 [facility] Comment on above: Performed By: #### C DP, CMPX, CRP, SED, GLYHGB ####[facility] [address] [place] [address] CO2 23 mmol/L Normal 20-31 [facility] Comment on above: Performed By: #### C DP, CMPX, CRP, SED, GLYHGB ####[facility] [address] [place] [address] Creatinine 1.01 mg/dL Normal 0.70-1.20 [facility] Comment on above: Performed By: #### C DP, CMPX, CRP, SED, GLYHGB ####[facility] [place] [address] eGFR (non-black) mL/min/{1.73_m2} Normal >60 [facility] Comment on above: Performed By: #### C DP, CMPX, CRP, SED, GLYHGB ####[address] [address] Glucose mass conc 172 mg/dL High 70-99 [facility] Comment on above: Performed By: #### C DP, CMPX, CRP, SED, GLYHGB ####[address] [address] Potassium molar conc 3.9 mmol/L Normal 3.7-5.3 [facility] Comment on above: Performed By: #### C DP, CMPX, CRP, SED, GLYHGB ####[address] [address] Sodium 138 mmol/L Normal 135-144 [facility] Comment on above: Performed By: #### C DP, CMPX, CRP, SED, GLYHGB ####[address] [place] [address] Urea nitrogen 15 mg/dL Normal 6-20 [facility] Comment on above: Performed By: #### C DP, CMPX, CRP, SED, GLYHGB ####[address] [place] [address] BUN/CRE Ratio NOT REPORTED Normal 9-20 [facility] Comment on above: Performed By: #### C DP, CMPX, CRP, SED, GLYHGB ####[address] [place] [address] Staging: NOT REPORTED Normal [facility] Comment on above: Performed By: #### C DP, CMPX, CRP, SED, GLYHGB ####[address] [address] CBC with Diffon 04-12-2017 Abs. Basophil <0.03 Normal 0.00-0.20 [facility] Comment on above: Performed By: #### C DP, CMPX, CRP, SED, GLYHGB ####[address] [address] Abs.Neutrophil (Seg) 4.31 k/uL Normal 1.50-8.10 [facility] Comment on above: Performed By: #### C DP, CMPX, CRP, SED, GLYHGB ####[address] [address] Basophils/100 WBC Auto (Bld) 0 % Normal 0-2 [facility] Comment on above: Performed By: #### C DP, CMPX, CRP, SED, GLYHGB ####[address] [address] Eosinophils 0.21 10*3/uL Normal 0.00-0.44 [facility] Comment on above: Performed By: #### C DP, CMPX, CRP, SED, GLYHGB ####[address] [address] Eosinophils/100 leukocytes 3 % Normal 1-4 [facility] Comment on above: Performed By: #### C DP, CMPX, CRP, SED, GLYHGB ####[address] [address] Erythrocyte distribution width Auto Ratio (RBC) 14.7 % High 11.8-14.4 [facility] Comment on above: Performed By: #### C DP, CMPX, CRP, SED, GLYHGB ####[address] [address] Erythrocyte morphology ANISOCYTOSIS PRESENT Normal [facility] Comment on above: Result Comment: [address] [place] [address] Performed By: #### C DP, CMPX, CRP, SED, GLYHGB ####[address] [address] Erythrocytes (RBC) 3.45 10*6/uL Low 4.21-5.77 [facility] Comment on above: Performed By: #### C DP, CMPX, CRP, SED, GLYHGB ####[address] [address] Granulocytes/100 WBC (Bld) 0.22 k/uL Normal 0.00-0.30 [facility] Comment on above: Performed By: #### C DP, CMPX, CRP, SED, GLYHGB ####[address] [address] Hematocrit (HCT) 28.9 % Low 40.7-50.3 [facility] Comment on above: Performed By: #### C DP, CMPX, CRP, SED, GLYHGB ####[address] [address] Hemoglobin mass conc (Bld) 8.9 g/dL Low 13.0-17.0 [facility] Comment on above: Performed By: #### C DP, CMPX, CRP, SED, GLYHGB ####[address] [address] Immature granulocytes #/vol (Bld) 3 % High 0 [facility] Comment on above: Performed By: #### C DP, CMPX, CRP, SED, GLYHGB ####[address] [address] Lymphocytes 1.83 10*3/uL Normal 1.10-3.70 [facility] Comment on above: Performed By: #### C DP, CMPX, CRP, SED, GLYHGB ####[address] [address] Lymphocytes/100 leukocytes 26 % Normal 24-43 [facility] Comment on above: Performed By: #### C DP, CMPX, CRP, SED, GLYHGB ####[address] [address] MCH 25.8 pg Normal 25.2-33.5 [facility] Comment on above: Performed By: #### C DP, CMPX, CRP, SED, GLYHGB ####[address] [address] MCHC mass conc (RBC) 30.8 g/dL Normal 28.4-34.8 [facility] Comment on above: Performed By: #### C DP, CMPX, CRP, SED, GLYHGB ####[address] [address] MCV 83.8 fL Normal 82.6-102.9 [facility] Comment on above: Performed By: #### C DP, CMPX, CRP, SED, GLYHGB ####[address] [address] Monocytes 0.58 10*3/uL Normal 0.10-1.20 [facility] Comment on above: Performed By: #### C DP, CMPX, CRP, SED, GLYHGB ####[address] [address] Monocytes/100 leukocytes 8 % Normal 3-12 [facility] Comment on above: Performed By: #### C DP, CMPX, CRP, SED, GLYHGB ####[address] [address] Neutrophil (Seg) 60 % Normal 36-65 [facility] Comment on above: Performed By: #### C DP, CMPX, CRP, SED, GLYHGB ####[address] [address] Platelet mean volume (PMV) 9.3 fL Normal 8.1-13.5 [facility] Comment on above: Performed By: #### C DP, CMPX, CRP, SED, GLYHGB ####[address] [address] Platelets 231 10*3/uL Normal 138-453 [facility] Comment on above: Performed By: #### C DP, CMPX, CRP, SED, GLYHGB ####[address] [address] WBC (Leukocytes) 7.2 10*3/uL Normal 3.5-11.3 [facility] Comment on above: Performed By: #### C DP, CMPX, CRP, SED, GLYHGB ####[address] [address] Auto Diff Performed NOT REPORTED Normal [facility] Comment on above: Performed By: #### C DP, CMPX, CRP, SED, GLYHGB ####[address] [address] Platelets NOT REPORTED Normal [facility] Comment on above: Performed By: #### C DP, CMPX, CRP, SED, GLYHGB ####[address] [address] WBC Morphology NOT REPORTED Normal [facility] Comment on above: Performed By: #### C DP, CMPX, CRP, SED, GLYHGB ####[address] [address] Cult,Aerobe/Anaerobeon 04-12 Neutrophils Specimen Description .TISSUE RIGHT [...] NOT REPORTEDTrimethoprim/Sulfa <=10 SUSCEPTIBLEVancomycin 1 SUSCEPTIBLE Normal [facility] Comment on above: Performed By: #### A ANC ####[place] [id number] Plan of Careon 04-12-2017 HIM IP Note OR Cheese Supervisor Normal [facility] HIM IP Note OR Cheese Supervisor Normal [facility] HIM IP Note OR Cheese Supervisor Normal [facility] HIM IP Note OR Cheese Supervisor Normal [facility] HIM IP Note OR Cheese Supervisor Normal [facility] Progress Noteon 04-12-2017 HIM IP Note OR Cheese Supervisor Normal [facility] HIM IP Note OR Cheese Supervisor Normal [facility] HIM IP Note OR Cheese Supervisor Normal [facility] HIM IP Note OR Cheese Supervisor Normal [facility] HIM IP Note OR Cheese Supervisor Normal [facility] HIM IP Note OR Cheese Supervisor Normal [facility] Basic Metabolic Profon 04-11 (cont.) Normal [facility] Comment on above: Result Comment: Aver age GFR for 50-59 years old: 93 mL/min/1.73sq mChronic Kidney Disease: <60 mL/min/1.73sq mKidney failure: <15 mL/min/1.73sq meGFR calculated using average adult body mass. Additional eGFR calculator available at:http://[email or web address]_[email or web address] [place] [address] Performed By: #### C DP, CMPX, CRP, SED, GLYHGB ####[address] [address] Anion gap 14 mmol/L Normal 9-17 [facility] Comment on above: Performed By: #### C DP, CMPX, CRP, SED, GLYHGB ####[address] [address] Calcium 8.2 mg/dL Low 8.6-10.4 [facility] Comment on above: Performed By: #### C DP, CMPX, CRP, SED, GLYHGB ####[address] [address] Chloride 101 mmol/L Normal 98-107 [facility] Comment on above: Performed By: #### C DP, CMPX, CRP, SED, GLYHGB ####[address] [address] CO2 21 mmol/L Normal 20-31 [facility] Comment on above: Performed By: #### C DP, CMPX, CRP, SED, GLYHGB ####[address] [address] Creatinine 1.16 mg/dL Normal 0.70-1.20 [facility] Comment on above: Performed By: #### C DP, CMPX, CRP, SED, GLYHGB ####[address] [address] eGFR (non-black) mL/min/{1.73_m2} Normal >60 [facility] Comment on above: Performed By: #### C DP, CMPX, CRP, SED, GLYHGB ####[address] [address] Glucose mass conc 153 mg/dL High 70-99 [facility] Comment on above: Performed By: #### C DP, CMPX, CRP, SED, GLYHGB ####[address] [address] Potassium molar conc 4.0 mmol/L Normal 3.7-5.3 [facility] Comment on above: Performed By: #### C DP, CMPX, CRP, SED, GLYHGB ####[address] [address] Sodium 136 mmol/L Normal 135-144 [facility] Comment on above: Performed By: #### C DP, CMPX, CRP, SED, GLYHGB ####[address] [address] Urea nitrogen 18 mg/dL Normal 6-20 [facility] Comment on above: Performed By: #### C DP, CMPX, CRP, SED, GLYHGB ####[address] [address] BUN/CRE Ratio NOT REPORTED Normal 9-20 [facility] Comment on above: Performed By: #### C DP, CMPX, CRP, SED, GLYHGB ####[address] [address] Staging: NOT REPORTED Normal [facility] Comment on above: Performed By: #### C DP, CMPX, CRP, SED, GLYHGB ####[address] [address] C-Reactive Proteinon 01-14-2 018 C reactive protein (CRP) 55.5 mg/L High 0.0-5.0 [facility] Comment on above: Result Comment: [address] [address] Performed By: #### C DP, CMPX, CRP, SED, GLYHGB ####[address] [address] CBC with Diffon 04-11-2017 Abs. Basophil <0.03 Normal 0.00-0.20 [facility] Comment on above: Performed By: #### C DP, CMPX, CRP, SED, GLYHGB ####[address] [address] Abs.Neutrophil (Seg) 5.04 k/uL Normal 1.50-8.10 [facility] Comment on above: Performed By: #### C DP, CMPX, CRP, SED, GLYHGB ####[address] [address] Basophils/100 WBC Auto (Bld) 0 % Normal 0-2 [facility] Comment on above: Performed By: #### C DP, CMPX, CRP, SED, GLYHGB ####[address] [address] Eosinophils 0.24 10*3/uL Normal 0.00-0.44 [facility] Comment on above: Performed By: #### C DP, CMPX, CRP, SED, GLYHGB ####[address] [address] Eosinophils/100 leukocytes 3 % Normal 1-4 [facility] Comment on above: Performed By: #### C DP, CMPX, CRP, SED, GLYHGB ####[address] [address] Erythrocyte distribution width Auto Ratio (RBC) 14.8 % High 11.8-14.4 [facility] Comment on above: Performed By: #### C DP, CMPX, CRP, SED, GLYHGB ####[address] [address] Erythrocyte morphology ANISOCYTOSIS PRESENT Normal [facility] Comment on above: Result Comment: [address] [address] Performed By: #### C DP, CMPX, CRP, SED, GLYHGB ####[address] [address] Erythrocytes (RBC) 3.36 10*6/uL Low 4.21-5.77 [facility] Comment on above: Performed By: #### C DP, CMPX, CRP, SED, GLYHGB ####[address] [address] Granulocytes/100 WBC (Bld) 0.09 k/uL Normal 0.00-0.30 [facility] Comment on above: Performed By: #### C DP, CMPX, CRP, SED, GLYHGB ####[address] [address] Hematocrit (HCT) 28.8 % Low 40.7-50.3 [facility] Comment on above: Performed By: #### C DP, CMPX, CRP, SED, GLYHGB ####[address] [address] Hemoglobin mass conc (Bld) 8.8 g/dL Low 13.0-17.0 [facility] Comment on above: Performed By: #### C DP, CMPX, CRP, SED, GLYHGB ####[address] [address] Immature granulocytes #/vol (Bld) 1 % High 0 [facility] Comment on above: Performed By: #### C DP, CMPX, CRP, SED, GLYHGB ####[address] [address] Lymphocytes 1.73 10*3/uL Normal 1.10-3.70 [facility] Comment on above: Performed By: #### C DP, CMPX, CRP, SED, GLYHGB ####[address] [address] Lymphocytes/100 leukocytes 23 % Low 24-43 [facility] Comment on above: Performed By: #### C DP, CMPX, CRP, SED, GLYHGB ####[address] [address] MCH 26.2 pg Normal 25.2-33.5 [facility] Comment on above: Performed By: #### C DP, CMPX, CRP, SED, GLYHGB ####[address] [address] MCHC mass conc (RBC) 30.6 g/dL Normal 28.4-34.8 [facility] Comment on above: Performed By: #### C DP, CMPX, CRP, SED, GLYHGB ####[address] [address] MCV 85.7 fL Normal 82.6-102.9 [facility] Comment on above: Performed By: #### C DP, CMPX, CRP, SED, GLYHGB ####[address] [address] Monocytes 0.56 10*3/uL Normal 0.10-1.20 [facility] Comment on above: Performed By: #### C DP, CMPX, CRP, SED, GLYHGB ####[address] [address] Monocytes/100 leukocytes 7 % Normal 3-12 [facility] Comment on above: Performed By: #### C DP, CMPX, CRP, SED, GLYHGB ####[address] [address] Neutrophil (Seg) 66 % High 36-65 [facility] Comment on above: Performed By: #### C DP, CMPX, CRP, SED, GLYHGB ####[address] [address] Platelet mean volume (PMV) 9.9 fL Normal 8.1-13.5 [facility] Comment on above: Performed By: #### C DP, CMPX, CRP, SED, GLYHGB ####[address] [address] Platelets 264 10*3/uL Normal 138-453 [facility] Comment on above: Performed By: #### C DP, CMPX, CRP, SED, GLYHGB ####[address] [address] WBC (Leukocytes) 7.7 10*3/uL Normal 3.5-11.3 [facility] Comment on above: Performed By: #### C DP, CMPX, CRP, SED, GLYHGB ####[address] [address] Auto Diff Performed NOT REPORTED Normal [facility] Comment on above: Performed By: #### C DP, CMPX, CRP, SED, GLYHGB ####[address] [address] Platelets NOT REPORTED Normal [facility] Comment on above: Performed By: #### C DP, CMPX, CRP, SED, GLYHGB ####[address] [address] WBC Morphology NOT REPORTED Normal [facility] Comment on above: Performed By: #### C DP, CMPX, CRP, SED, GLYHGB ####[address] [address] Hemoglobin A1Con 04-11-2017 Glucose mass conc 315 mg/dL Normal [facility] Comment on above: Result Comment: The ADA and AACC recommend providing the estimated average glucose result to permit better patient understanding of their HBA1c result.[facility] [employer] [facility] [place] [address] Performed By: #### C DP, CMPX, CRP, SED, GLYHGB ####[address] [address] Hemoglobin A1c/Hemoglobin.tot al mass fraction (Bld) 12.6 % High 4.0-6.0 [facility] Comment on above: Performed By: #### C DP, CMPX, CRP, SED, GLYHGB ####[facility] [address] [place] [address] Plan of Careon 04-11-2017 HIM IP Note OR Cheese Supervisor Normal [facility] HIM IP Note OR Cheese Supervisor Normal [facility] HIM IP Note OR Cheese Supervisor Normal [facility] HIM IP Note OR Cheese Supervisor Normal [facility] Progress Noteon 04-11-2017 HIM IP Note OR Cheese Supervisor Normal [facility] HIM IP Note OR Cheese Supervisor Normal [facility] HIM IP Note OR Cheese Supervisor Normal [facility] HIM IP Note OR Cheese Supervisor Normal [facility] Consulton 04-10-2017 HIM IP Note OR Cheese Supervisor Normal [facility] Cult,Urine,Cathon 04-10-2017 Cult,Urine,Cath Specimen Description .CATHETERIZED URINE Special Requests NOT REPORTED Culture PRESUMPTIVE ID: LEO ALBICANS >[id number] CFU/ML Report Status FINAL 04/10/2017 Normal [facility] Comment on above: Performed By: #### C DP, CMPX, CRP, SED, GLYHGB ####[address] [address] Influenza A + B, PCRon 04-10 Influenza A + B, PCR Specimen Description .NASOPHARYNGEAL SWABSpecial Requests NOT REPORTEDDirect Exam NEGATIVE: Influenza A and B RNA not detected by nucleic acid amplification. The results obtained should be interpreted in conjunction with clinical findings and other laboratory markers. The performance characterisitics of this molecular test were validated by the molecular microbiology department of [facility] [employer]. Report Status FINAL 04/10/2017 Normal [facility] Comment on above: Performed By: #### C DP, CMPX, CRP, SED, GLYHGB ####[facility] [place], [place] [id number] OPERATIVE REPORTon 8 OPERATIVE REPORT [facility] [address] [place] [phone] OPERATIVE REPORTPATIENT NAME: GANGA STINSON : 1960MED REC NO: [id number] ROOM: [address] [place], [place] [address]OUNT NO: [id number] ADMIT DATE: 04/09/2017PROVIDER: William Foster-HectorATE OF PROCEDURE: 04/10/2016SURGEON: William Jimenez, DPMASSISTANT: Benito Chacon, CRISTIANA, PGY-1PREOPERATIVE DIAGNOSES:1. Deep space abscess, right heel.2. [...] for recovery. 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 The department of Infectious Disease,Internal Medicine, and specialty medicine services will provide care duringthe inpatient admission. He will return to the care of Dr. Min [facility], [place], upon discharge.INDICATIONS FOR OPERATION: This is a [...] He would follow up with his usual insulation cupola operator on anoutpatient basis. The departments of Internal Medicine and InfectiousDisease will guide our care in the interim. Cultures should be availablewith sensitivities in approximately 72 hours and consider dischargeplanning then.WILLIAM FOSTER-JUDGED: 04/10/2017 15:31:53 MS/Jerry_VINCEOR_IJob#: [id number] Doc#: [id number]: Yakov Min [facility] Department of Infectious Disease Internal Medicine Normal [facility] Plan of Careon 04-10-2017 HIM IP Note OR Cheese Supervisor Normal [facility] HIM IP Note OR Cheese Supervisor Normal [facility] Progress Noteon 04-10-2017 HIM IP Note OR Cheese Supervisor Normal [facility] HIM IP Note OR Cheese Supervisor Normal [facility] XR ANKLE RIGHT STANDARDon XR [...] Bakerigned by:Roberto Carlos Cavazos MD04/09/17inal result Normal [facility] C-Reactive Proteinon 018 C reactive protein (CRP) 114.3 mg/L High 0.0-5.0 [facility] Comment on above: Result Comment: [id number] [place] [address] Performed By: #### C DP, CMPX, CRP, SED, GLYHGB ####[address] [address] CBC with Diffon 04-09-2017 Abs. Basophil <0.03 Normal 0.00-0.20 [facility] Comment on above: Performed By: #### C DP, CMPX, CRP, SED, GLYHGB ####[address] [address] Abs.Neutrophil (Seg) 5.95 k/uL Normal 1.50-8.10 [facility] Comment on above: Performed By: #### C DP, CMPX, CRP, SED, GLYHGB ####[address] [address] Basophils/100 WBC Auto (Bld) 0 % Normal 0-2 [facility] Comment on above: Performed By: #### C DP, CMPX, CRP, SED, GLYHGB ####[address] [address] Eosinophils 0.11 10*3/uL Normal 0.00-0.44 [facility] Comment on above: Performed By: #### C DP, CMPX, CRP, SED, GLYHGB ####[address] [address] Eosinophils/100 leukocytes 1 % Normal 1-4 [facility] Comment on above: Performed By: #### C DP, CMPX, CRP, SED, GLYHGB ####[address] [address] Erythrocyte distribution width Auto Ratio (RBC) 15.0 % High 11.8-14.4 [facility] Comment on above: Performed By: #### C DP, CMPX, CRP, SED, GLYHGB ####[address] [address] Erythrocyte morphology ANISOCYTOSIS PRESENT Normal [facility] Comment on above: Result Comment: [address] [address] Performed By: #### C DP, CMPX, CRP, SED, GLYHGB ####[address] [address] Erythrocytes (RBC) 3.50 10*6/uL Low 4.21-5.77 [facility] Comment on above: Performed By: #### C DP, CMPX, CRP, SED, GLYHGB ####[address] [address] Granulocytes/100 WBC (Bld) 0.09 k/uL Normal 0.00-0.30 [facility] Comment on above: Performed By: #### C DP, CMPX, CRP, SED, GLYHGB ####[address] [address] Hematocrit (HCT) 29.9 % Low 40.7-50.3 [facility] Comment on above: Performed By: #### C DP, CMPX, CRP, SED, GLYHGB ####[address] [address] Hemoglobin mass conc (Bld) 9.0 g/dL Low 13.0-17.0 [facility] Comment on above: Performed By: #### C DP, CMPX, CRP, SED, GLYHGB ####[address] [address] Immature granulocytes #/vol (Bld) 1 % High 0 [facility] Comment on above: Performed By: #### C DP, CMPX, CRP, SED, GLYHGB ####[address] [address] Lymphocytes 1.60 10*3/uL Normal 1.10-3.70 [facility] Comment on above: Performed By: #### C DP, CMPX, CRP, SED, GLYHGB ####[address] [address] Lymphocytes/100 leukocytes 19 % Low 24-43 [facility] Comment on above: Performed By: #### C DP, CMPX, CRP, SED, GLYHGB ####[address] [address] MCH 25.7 pg Normal 25.2-33.5 [facility] Comment on above: Performed By: #### C DP, CMPX, CRP, SED, GLYHGB ####[address] [address] MCHC mass conc (RBC) 30.1 g/dL Normal 28.4-34.8 [facility] Comment on above: Performed By: #### C DP, CMPX, CRP, SED, GLYHGB ####[address] [address] MCV 85.4 fL Normal 82.6-102.9 [facility] Comment on above: Performed By: #### C DP, CMPX, CRP, SED, GLYHGB ####[address] [address] Monocytes 0.53 10*3/uL Normal 0.10-1.20 [facility] Comment on above: Performed By: #### C DP, CMPX, CRP, SED, GLYHGB ####[address] [address] Monocytes/100 leukocytes 6 % Normal 3-12 [facility] Comment on above: Performed By: #### C DP, CMPX, CRP, SED, GLYHGB ####[facility] [place] [address] Neutrophil (Seg) 73 % High 36-65 [facility] Comment on above: Performed By: #### C DP, CMPX, CRP, SED, GLYHGB ####[address] [address] Platelet mean volume (PMV) 9.6 fL Normal 8.1-13.5 [facility] Comment on above: Performed By: #### C DP, CMPX, CRP, SED, GLYHGB ####[address] [address] Platelets 224 10*3/uL Normal 138-453 [facility] Comment on above: Performed By: #### C DP, CMPX, CRP, SED, GLYHGB ####[address] [address] WBC (Leukocytes) 8.3 10*3/uL Normal 3.5-11.3 [facility] Comment on above: Performed By: #### C DP, CMPX, CRP, SED, GLYHGB ####[address] [address] Auto Diff Performed NOT REPORTED Normal [facility] Comment on above: Performed By: #### C DP, CMPX, CRP, SED, GLYHGB ####[address] [address] Platelets NOT REPORTED Normal [facility] Comment on above: Performed By: #### C DP, CMPX, CRP, SED, GLYHGB ####[address] [address] WBC Morphology NOT REPORTED Normal [facility] Comment on above: Performed By: #### C DP, CMPX, CRP, SED, GLYHGB ####[address] [address] Comp Metabolic Pr/rfx MGon 0 - (cont.) Normal [facility] Comment on above: Result Comment: Aver age GFR for 50-59 years old: 93 mL/min/1.73sq mChronic Kidney Disease: <60 mL/min/1.73sq mKidney failure: <15 mL/min/1.73sq meGFR calculated using average adult body mass. Additional eGFR calculator available at:http://[email or web address]_crcl_[email or web address] [address] Performed By: #### C DP, CMPX, CRP, SED, GLYHGB ####[address] [address] Alanine aminotransferase (ALT) 9 U/L Normal 5-41 [facility] Comment on above: Performed By: #### C DP, CMPX, CRP, SED, GLYHGB ####[address] [address] Albumin 2.8 g/dL Low 3.5-5.2 [facility] Comment on above: Performed By: #### C DP, CMPX, CRP, SED, GLYHGB ####[address] [address] Albumin/Globulin Ratio 0.7 {ratio} Low 1.0-2.5 [facility] Comment on above: Performed By: #### C DP, CMPX, CRP, SED, GLYHGB ####[address] [address] Alkaline Phos 57 U/L Normal 40-129 [facility] Comment on above: Performed By: #### C DP, CMPX, CRP, SED, GLYHGB ####[address] [address] Anion gap 13 mmol/L Normal 9-17 [facility] Comment on above: Performed By: #### C DP, CMPX, CRP, SED, GLYHGB ####[address] [address] Aspartate aminotransferase (AST) 9 U/L Normal <40 [facility] Comment on above: Performed By: #### C DP, CMPX, CRP, SED, GLYHGB ####[facility] [address] [place] [address] Bilirubin Ql (U) 0.26 mg/dL Low 0.3-1.2 [facility] Comment on above: Performed By: #### C DP, CMPX, CRP, SED, GLYHGB ####[address] [address] Calcium 8.4 mg/dL Low 8.6-10.4 [facility] Comment on above: Performed By: #### C DP, CMPX, CRP, SED, GLYHGB ####[address] [address] Chloride 99 mmol/L Normal 98-107 [facility] Comment on above: Performed By: #### C DP, CMPX, CRP, SED, GLYHGB ####[address] [address] CO2 21 mmol/L Normal 20-31 [facility] Comment on above: Performed By: #### C DP, CMPX, CRP, SED, GLYHGB ####[address] [address] Creatinine 1.13 mg/dL Normal 0.70-1.20 [facility] Comment on above: Performed By: #### C DP, CMPX, CRP, SED, GLYHGB ####[address] [address] eGFR (non-black) mL/min/{1.73_m2} Normal >60 [facility] Comment on above: Performed By: #### C DP, CMPX, CRP, SED, GLYHGB ####[facility] [place] [address] Glucose mass conc 267 mg/dL High 70-99 [facility] Comment on above: Performed By: #### C DP, CMPX, CRP, SED, GLYHGB ####[address] [address] Potassium molar conc 4.3 mmol/L Normal 3.7-5.3 [facility] Comment on above: Performed By: #### C DP, CMPX, CRP, SED, GLYHGB ####[address] [address] Protein 7.0 g/dL Normal 6.4-8.3 [facility] Comment on above: Performed By: #### C DP, CMPX, CRP, SED, GLYHGB ####[address] [address] Sodium 133 mmol/L Low 135-144 [facility] Comment on above: Performed By: #### C DP, CMPX, CRP, SED, GLYHGB ####[address] [place] [address] Urea nitrogen 22 mg/dL High 6-20 [facility] Comment on above: Performed By: #### C DP, CMPX, CRP, SED, GLYHGB ####[address] [address] BUN/CRE Ratio NOT REPORTED Normal 9-20 [facility] Comment on above: Performed By: #### C DP, CMPX, CRP, SED, GLYHGB ####[address] [place] [address] Staging: NOT REPORTED Normal [facility] Comment on above: Performed By: #### C DP, CMPX, CRP, SED, GLYHGB ####[facility] [address] [place] [address] Consulton 04-09-2017 HIM IP Note OR Cheese Supervisor Normal [facility] HIM IP Note OR Cheese Supervisor Normal [facility] HIM IP Note OR Cheese Supervisor Normal [facility] Flu A/B Ag Detectionon 04-09 Flu A/B Ag Detection Specimen Description .NASOPHARYNGEAL SWABSpecial Requests NOT REPORTEDDirect Exam PRESUMPTIVE NEGATIVE for Influenza A + B antigens. PCR testing to confirm this result is available upon request. Specimen will be saved in the laboratory for 7 days. Please call [phone] if PCR testing is indicated. Report Status FINAL 04/09/2017 Normal [facility] Comment on above: Performed By: #### C DP, CMPX, CRP, SED, GLYHGB ####[address] [place] [address] History and Physicalon 04-09 HIM IP Note OR Cheese Supervisor Normal [facility] MRI FOOT RIGHT W WO [...] suspected despite a lack of definitive precontrast I5ixkwxhph changes.Large ulcer overlying the lateral malleolus with underlying osteomyelitis.Interpreted by:SAMMI Tellezigned by:Jesusita Mock MD04/09/17inal result Normal [facility] Op Noteon 04-09-2017 HIM IP Note OR Cheese Supervisor Normal [facility] Plan of Careon 04-09-2017 HIM IP Note OR Cheese Supervisor Normal [facility] HIM IP Note OR Cheese Supervisor Normal [facility] Progress Noteon 04-09-2017 HIM IP Note OR Cheese Supervisor Normal [facility] HIM IP Note OR Cheese Supervisor Normal [facility] HIM IP Note OR Cheese Supervisor Normal [facility] RSV Ag Detectionon 8 RSV Ag Detection Specimen Description .NASOPHARYNGEAL SWABSpecial Requests NOT REPORTEDDirect Exam Presumptive negative for the presence of RSV antigen. PCR testing to confirm this result is available upon request. Specimen will be saved in the laboratory for 7 days. Please call [phone] if PCR testing is indicated. Report Status FINAL 04/09/2017 Normal [facility] Comment on above: Performed By: #### C DP, CMPX, CRP, SED, GLYHGB ####[address] [place] [address] Sedimentation Rateon 018 Sedimentation Rate 80 mm High 0-10 [facility] Comment on above: Result Comment: [address] [place] [address] Performed By: #### C DP, CMPX, CRP, SED, GLYHGB ####[facility] Resort[address] [place] [address] XR FOOT RIGHT STANDARDon XR FOOT RIGHT [...] by:SAMMI Tellezigned by:Jesusita Mock MD04/09/17inal result Normal [facility] Vital Signs Date Time Vital Sign Value Performing Clinician Facility 06-04-2023 13:27-0500 Diastolic blood pressure 58 mm[Hg] MD Fidel Abbott Work Phone: [facility] 06-04-2023 13:27-0500 Heart rate 60 /min MD Fidel Abbott Work Phone: [facility] 06-04-2023 13:27-0500 Respiratory rate 12 /min MD Fidel Abbott Work Phone: [facility] 06-04-2023 13:27-0500 SaO2% (BldA) [Mass fraction] 98 % MD Fidel Abbott Work Phone: [facility] 06-04-2023 13:27-0500 Systolic blood pressure 135 mm[Hg] MD Fidel Abbott Work Phone: [facility] 06-04-2023 10:49-0500 Body height 180.34 cm MD Fidel Abbott Work Phone: [facility] 06-04-2023 10:49-0500 Body temperature 98 [degF] MD Fidel Abbott Work Phone: [facility] 06-04-2023 10:49-0500 Body weight 114.3 kg MD Fidel Abbott Work Phone: [facility] 05-06-2023 10:40-0500 Body height 177.8 cm Jonathan Moffett DPM Work Phone: [facility] 05-06-2023 10:40-0500 Body mass index (BMI) [Ratio] 35.87 kg/m2 Jonathan Moffett DPM Work Phone: [facility] 05-06-2023 10:40-0500 Body weight 113.4 kg Jonathan Moffett DPM Work Phone: [facility] 05-06-2023 10:40-0500 Diastolic blood pressure 80 mm[Hg] Jonathan Moffett DPM Work Phone: [facility] 05-06-2023 10:40-0500 Heart rate 79 /min Jonathan Moffett DPM Work Phone: [facility] 05-06-2023 10:40-0500 Systolic blood pressure 133 mm[Hg] Jonathan Moffett DPM Work Phone: [facility] 05-04-2023 13:06-0500 Body mass index (BMI) [Ratio] 34.8 kg/m2 MD Fidel Abbott Work Phone: [facility] 05-04-2023 12:48-0500 Body height 180.34 cm MD Fidel Abbott Work Phone: [facility] 05-04-2023 12:48-0500 Body weight 113.39 kg MD Fidel Abbott Work Phone: [facility] 05-04-2023 11:25-0500 Body temperature 97.3 [degF] MD Fidel Abbott Work Phone: [facility] 05-04-2023 11:25-0500 Diastolic blood pressure 78 mm[Hg] MD Fidel Abbott Work Phone: [facility] 05-04-2023 11:25-0500 Heart rate 64 /min MD Fidel Abbott Work Phone: [facility] 05-04-2023 11:25-0500 Respiratory rate 18 /min MD Fidel Abbott Work Phone: [facility] 05-04-2023 11:25-0500 Systolic blood pressure 177 mm[Hg] MD Fidel Abbott Work Phone: [facility] 11-09-2022 13:10-0400 Blood Pressure Location Parvin VILLA [facility] 11-09-2022 13:10-0400 Diastolic blood pressure 72 mm[Hg] Parvin VILLA [facility] 11-09-2022 13:10-0400 Heart rate 78 /min Parvin VILLA [facility] 11-09-2022 13:10-0400 Systolic blood pressure 148 mm[Hg] Parvin VILLA [facility] 06-26-2022 14:00-0400 Body temperature 97.81 [degF] Eli Pimentel MD Work Phone: [facility] 06-26-2022 14:00-0400 Diastolic blood pressure 62 mm[Hg] Eli Pimentel MD Work Phone: [facility] 06-26-2022 14:00-0400 Heart rate 70 /min Eli [facility]imentel MD [facility] [employer] 06-26-2022 14:00-0400 Respiratory rate 18 /min Eli Pimentel MD [facility] Phone[facility] [employer] 06-26-2022 14:00-0400 SaO2% (BldA) [Mass fraction] 95 % Eli Pimentel MD Work Phone[facility] [employer] 06-26-2022 14:00-0400 Systolic blood pressure 144 mm[Hg] Eli Pimentel MD Work Phone: [facility] 06-26-2022 05:30-0400 Body mass index (BMI) [Ratio] 34.28 kg/m2 Eli Pimentel MD Work Phone[facility] 06-26-2022 05:30-0400 Body weight 111.49 kg Eli Pimentel MD Work Phone: [facility] 06-25-2022 04:54-0400 Body height 180.3 cm Eli Pimentel MD Work Phone: [facility] 06-02-2022 12:14-0500 Body height 172.72 cm MD Fidel Abbott Work Phone: [facility] 06-02-2022 12:14-0500 Body mass index (BMI) [Ratio] 41 kg/m2 MD Fidel Abbott Work Phone: [facility] 06-02-2022 12:14-0500 Body weight 122.46 kg MD Fidel Abbott Work Phone: [facility] 06-02-2022 09:52-0500 Body temperature 97 [degF] MD Fidel Abbott Work Phone: [facility] 06-02-2022 09:52-0500 Diastolic blood pressure 73 mm[Hg] MD Fidel Abbott Work Phone: [facility] 06-02-2022 09:52-0500 Heart rate 76 /min MD Fidel Abbott Work Phone: [facility] 06-02-2022 09:52-0500 Systolic blood pressure 155 mm[Hg] MD Fidel Abbott Work Phone: [facility] 03-03-2022 12:06-0500 Body height 180.34 cm MD Fidel Abbott Work Phone: [facility] 03-03-2022 12:06-0500 Body mass index (BMI) [Ratio] 34.8 kg/m2 MD Fidel Abbott Work Phone: [facility] 03-03-2022 12:06-0500 Body weight 113.39 kg MD Fidel Abbott Work Phone: [facility] 03-03-2022 11:37-0500 Body temperature 97.7 [degF] MD Fidel Abbott Work Phone: [facility] 03-03-2022 11:37-0500 Diastolic blood pressure 56 mm[Hg] MD Fidel Abbott Work Phone: [facility] 03-03-2022 11:37-0500 Heart rate 68 /min MD Fidel Abbott Work Phone: [facility] 03-03-2022 11:37-0500 Respiratory rate 18 /min MD Fidel Abbott Work Phone: [facility] 03-03-2022 11:37-0500 Systolic blood pressure 122 mm[Hg] MD Fidel Abbott Work Phone: [facility] Encounters Encounter Date Encounter Type Care Provider Facility Start: 10-04-2023 ambulatory Parvin Acuna ty:CD:[id number] Start: 07-08-2023 End: 07-08-2023 ambulatory Bubba Bahena Facility:[facility] Start: 07-08-2023 End: 07-08-2023 ambulatory MD Fidel Abbott Work Phone: [facility] Work Phone: Start: 07-08-2023 End: 07-08-2023 Departed Referred MD Fidel Abbott Work Phone: [facility] Start: 06-10-2023 End: 06-10-2023 ambulatory JONATHAN MOFFETT Not Available Start: 06-04-2023 End: 06-04-2023 ambulatory Jonathan Moffett Facility:[facility] Start: 06-04-2023 End: 06-04-2023 Admission to same day surgery center MD Fidel Abbott Work Phone: [facility] [place] Start: 06-03-2023 End: 06-03-2023 ambulatory JONATHAN MOFFETT Not Available Start: 05-20-2023 End: 05-20-2023 ambulatory JONATHAN MOFFETT Not Available Start: 05-13-2023 Telephone encounter Sandhya Grijalva [facility] Comment on above: Prescription Start: 05-06-2023 Chart abstracting Jonathan johnson DPM Work Phone: [facility] Start: 05-06-2023 End: 05-06-2023 ambulatory JONATHAN MOFFETT Not Available Start: 05-06-2023 End: 05-06-2023 Office outpatient visit 25 minutes Jonathan Moffett DPM Work Phone: [facility] Comment on above: Cellulitis of left f oot (Primary Dx); Ulcer of left ankle, with necrosis of bone (HCC) (CMS/HCC); Diabetes mellitus due to underlying condition with diabetic polyneuropathy, unspecified whether ferry terminal agent insulin use (CMS/HCC); Acute complete paraplegia (CMS/HCC); Acute osteomyelitis of left fibula (CMS/HCC); Foot ulcer, right, with fat layer exposed (CMS/HCC); Venous insufficiency Start: 05-04-2023 End: 05-05-2023 ambulatory Cathy Brar Facility:[facility] Start: 05-04-2023 End: 05-04-2023 ambulatory MD Fidel Abbott Work Phone: [facility] Work Phone: Start: 05-04-2023 End: 05-04-2023 Discharged Recurring MD Fidel Abbott Work Phone: [facility] Work Phone: Start: 04-29-2023 End: 04-29-2023 ambulatory JONATHAN A [...] Start: 02-23-2023 End: 02-23-2023 ambulatory JONATHAN A BROWN Not Available Start: 02-23-2023 End: 02-23-2023 ambulatory Cathy Brar Facility:[facility] Start: 02-06-2023 End: 02-13-2023 Evaluation and management of inpatient Tita Cullen Facility:[facility] Start: 01-19-2023 End: 01-19-2023 ambulatory Parvin VILLA Facility:[facility] Start: 01-11-2023 End: 01-11-2023 ambulatory Parvin VILLA Facility:CD:[id number] Start: 11-09-2022 End: 11-09-2022 ambulatory Parvin VILLA Facility:[facility] Start: 11-09-2022 End: 11-09-2022 Patient encounter procedure Parvin VILLA [facility] Start: 10-09-2022 ambulatory Parvin VILLA Facility :[facility] Start: 10-07-2022 End: 10-08-2022 ambulatory Parvin VILLA Facility:CD:[id number] Start: 09-25-2022 End: 09-26-2022 ambulatory FIDEL ABBOTT [facility] Start: 09-18-2022 End: 09-21-2022 ambulatory ASHLEE ERWIN [facility] Start: 09-18-2022 End: 09-20-2022 Subsequent hospital visit by physician Francisca Ultrasound Room 2 At [facility] Ultrasound Comment on above: Cauda equina syndrom e (HCC); Neurogenic bladder; Urinary retention; Urinary incontinence without sensory awareness Start: 2022 End: 2022 ambulatory ANGELES NAGY [facility] Start: 07-02-2022 End: 07-03-2022 ambulatory SHELLY Tellez [facility] Start: 07-02-2022 End: 07-02-2022 Subsequent hospital visit by physician Fidel Abbott MD Work Phone: [facility] Laboratory Comment on above: Acute kidney injury (HCC); Iron deficiency anemia, unspecified iron deficiency anemia type Start: 06-22-2022 End: 06-26-2022 Evaluation and management of inpatient [facility] Start: 06-22-2022 End: 06-26-2022 Evaluation and management of inpatient [facility]iment[facility] Comment on above: Acute kidney injury (HCC) (Primary Dx); Hyperkalemia; Iron deficiency anemia, unspecified iron deficiency anemia type Start: 06-22-2022 End: 06-22-2022 ambulatory ANGELES NAGY [facility] Start: 06-22-2022 End: 06-22-2022 Subsequent hospital visit by physician Fidel Abbott MD Work Phone: [facility] EKG Comment on above: Neurogenic bladder Start: 06-02-2022 End: 06-02-2022 ambulatory MD Fidel Abbott Work Phone: [facility] Work Phone: Start: 06-02-2022 End: 06-02-2022 Discharged Recurring MD Fidel Abbott Work Phone: [facility] Work Phone: Start: 03-14-2022 End: 03-15-[address] CATHY BRAR Facility:[facility] Start: 03-03-2022 End: 03-03-2022 ambulatory MD Fidel Abbott Work Phone: [facility] Work Phone: Start: 03-03-2022 End: 03-03-2022 Discharged Recurring MD Fidel Abbott Work Phone: [facility] Work Phone: Start: 02-26-2022 End: 02-27-[address] CATHY BRAR Facility:[facility] Start: 05-30-2021 End: 05-31-[address] FIDEL ABBOTT Facility:[facility] Start: 04-09-2017 End: 04-13-2017 Evaluation and management of inpatient MICHAELA ONTIVEROS [facility] [facility] Procedures Date Procedure Procedure Detail Performing Clinician Start: 06-04-2023 Investigation of transfusion reaction MD Fidel Abbott Work Phone: Start: 06-04-2023 Debridement MD Fidel Abbott Work Phone: Start: 02-10-2023 Antibody screen Cathy Brar Comment on above: Order Comment: Transfuse now? Y Number o f units to transfuse now? 1 Result Comment: PERF ORMED BY: [facility] [address] [place] [address] PATHOLOGIST RAILROAD TRACK REPAIR SUPERVISOR FARRAH PAUL M.D. Start: 10-08-2022 Cystourethroscopy with dilation of urethral stricture Parvin VILLA Start: 09-18-2022 Us retroperitoneal real time w/image complete Ashlee Erwin COMMUNITY FACILITATOR - COMBINATION MACHINE TOOL SETTER Work Phone: Start: 2022 Optical urethrotomy Parvin VILLA Start: 07-02-2022 Basic metabolic panel calcium total Shelly Geoff Chau COMMUNITY FACILITATOR - COMBINATION MACHINE TOOL SETTER Work Phone: Start: 06-26-2022 End: 06-26-2022 COLONOSCOPY POLYPECTOMY SNARE/COLD BIOPSY Katerina Atkins MD Work Phone: Start: 06-26-2022 End: 06-26-2022 Esophagoscopy intra/transmural needle aspirat/bx Katerina Atkins MD Work Phone: Start: 06-26-2022 End: 06-26-2022 Colonoscopy Katerina Atkins MD Work Phone: Start: 06-26-2022 Esophagogastroduodenoscopy Katerina Cuadra i, MD Work Phone: Start: 06-26-2022 GLUCOSE, WHOLE BLOOD Matias Garcia MD Work Phone: Start: 06-26-2022 Blood count complete auto&auto difrntl wbc Katerina Atkins MD Work Phone: Start: 06-26-2022 Rhythm ecg 1-3 leads w/interpretation & report Unknown Provider Result Start: 06-25-2022 Blood occult peroxidase actv qual feces 1 deter Shelly Mondragon COMMUNITY FACILITATOR - [facility] Work Phone: Start: 06-25-2022 Cul bact xcpt urine blood/stool aerobic isol Yakov Min DPM Work Phone: Start: 06-25-2022 Blood count complete auto&auto difrntl wbc Katerina Atkins MD Work Phone: Start: 06-25-2022 End: 06-25-2022 Rhythm ecg 1-3 leads w/interpretation & report Unknown Provider Result Start: 06-25-2022 Antibody screen Eli Pimentel MD Work Phone: Start: 06-24-2022 Assay of troponin quantitative Zoila wright PA-C Work Phone: Start: 06-24-2022 End: 06-24-2022 Transfusion of packed red blood cells Shelly Mondragon [facility] Work Phone: Start: 06-24-2022 Echo tthrc r-t 2d w/wom-mode compl spec&colr d Shelly Mondragon [facility] Work Phone: Start: 06-24-2022 Blood typing serologic abo Shelly Mondragon [facility] Work Phone: Start: 06-24-2022 GLUCOSE, WHOLE BLOOD Matias Garcia MD Work Phone: Start: 06-24-2022 End: 06-24-2022 Prothrombin time Shelly Mondragon [facility] Work Phone: Start: 06-24-2022 VITAMIN B12 & FOLATE Shelly Mondragon [facility] Work Phone: Start: 06-24-2022 End: 06-25-2022 Rhythm ecg 1-3 leads w/interpretation & report Unknown Provider Result Start: 06-23-2022 End: 06-24-2022 Assay of troponin quantitative Zoila wright PA-C Work Phone: Start: 06-23-2022 Rhythm ecg 1-3 leads w/interpretation & report Unknown Provider Result Start: 06-23-2022 End: 06-23-2022 Ecg routine ecg w/least 12 lds i&r only Zoila Villafuerte PA-C Work Phone: Start: 06-23-2022 GLUCOSE, WHOLE BLOOD Matias Garcia MD Work Phone: Start: 06-23-2022 Radex ankle complete minimum 3 views Shelly Mondragon [facility] Work Phone: Start: 06-23-2022 Lipid panel Zoila Villafuerte PA-C Work Phone: Start: 06-23-2022 Urnls dip stick/tablet rgnt auto w/o microscopy Eli Pimentel MD Work Phone: Start: 06-23-2022 Cul bact xcpt urine blood/stool aerobic isol Matias Garcia MD Work Phone: Start: 06-22-2022 Ecg routine ecg w/least 12 lds i&r only Eli Pimentel MD Work Phone: Start: 06-22-2022 Comprehensive metabolic panel Eli Segovia dd, MD Work Phone: Start: 06-22-2022 Ecg routine ecg w/least 12 lds w/i&r Angeles Nagy MD Work Phone: Start: 06-22-2022 Basic metabolic panel calcium total Anglees Nagy MD Work Phone: Start: 04-13-2017 POCT [...] Start: 04-12-2017 INITIATE OXYGEN THERAPY PROTOCOL MICHAELA Sol IM Start: 04-12-2017 BASIC METABOLIC PANEL MICHAELA ONTIVEROS [...] Start: 04-09-2017 INITIATE OXYGEN THERAPY PROTOCOL MICHAELA Ebenezer WEBBER Start: 04-09-2017 NOTIFY PHYSICIAN (SPECIFY) MICHAELA ONTIVEROS Start: 04-09-2017 REASON FOR NO MECHANICAL VTE PROPHYLAXIS MICHAELA ONTIVEROS Start: 04-09-2017 VITAL SIGNS MICHAELA ONTIVEROS Start: 04-08-2017 PATIENT STATUS (DIRECT) MICHAELA ONTIVEROS Appendix structure ( body structure) Parvin VILLA Back structure, excl uding neck (body structure) Parvin VILLA Cystoscopy Parvin VILLA Insertion of inferio r vena caval filter Parvin VILLA Urodynamic studies Parvin VELAZQUEZ Plan of Treatment Date Care Activity Detail Author Start: 06-26-2032 Screening for malignant neoplasm of colon [facility] Start: 10-18-2023 End: 10-18-2023 Patient encounter procedure 10/18/2023 10:00 AM EDT Office Visit [facility] [address] [place] [address] Fidel Abbott MD [address] [place] [id number] [facility] Start: 09-19-2023 GFR test (Diabetes, CKD 3-4, OR last GFR 15-59) GFR test (Diabetes, CKD 3-4, OR last GFR 15-59) [facility] Start: 07-08-2023 Hemoglobin A1c measurement A1C test (Diabetic or Prediabetic) [facility] Start: 07-03-2023 GFR test (Diabetes, CKD 3-4, OR last GFR 15-59) GFR test (Diabetes, CKD 3-4, OR last GFR 15-59) [facility] Start: 06-27-2023 Screening for malignant neoplasm of colon [facility] Start: 06-26-2023 GFR test (Diabetes, CKD 3-4, OR last GFR 15-59) GFR test (Diabetes, CKD 3-4, OR last GFR 15-59) [facility] Start: 06-26-2023 Screening for malignant neoplasm of colon [facility] Start: 06-24-2023 Lipid panel Lipids [facility] [employer] Start: 06-23-2023 GFR test (Diabetes, CKD 3-4, OR last GFR 15-59) GFR test (Diabetes, CKD 3-4, OR last GFR 15-59) [facility] Start: 06-04-2023 [facility] Start: 05-20-2023 End: 05-20-2023 Patient encounter procedure 05/20/2023 3:10 PM EST Office Visit [facility] [address] [place] [address] Jonathan Moffett DPM [address] [address] [facility] Start: 05-06-2023 End: 05-06-2023 Patient encounter procedure 05/06/2023 10:20 AM EST Office Visit [facility] [address] [place] [address] Jonathan Moffett DPM [address] [address] [facility] Start: 10-27-2022 Influenza vaccination Flu vaccine (Season Ended) [facility] Start: 10-06-2022 Hemoglobin A1c measurement Diabetes: Hemoglobin A1C DAISY [facility] Start: 09-25-2022 End: 09-25-2022 Patient encounter procedure 09/25/2022 [facility] Start: 07-08-2022 End: 07-08-2022 Patient encounter procedure 07/08/2022 Office Visit [facility] Start: 2022 End: 2022 Admission to same day surgery center 2022 Surgery IP Unit Anglees Nagy MD [address] [place] [address], [address] [place] [id number] CYSTOSCOPY TRANSURETHROTOMY- DVIU WITH POSS TRANSURETHRAL RESECTION OF BLADDER TUMOR [facility] Comment on above: CYSTOSCOPY TRANSURETHROTOMY- DVIU WITH P OSS TRANSURETHRAL RESECTION OF BLADDER TUMOR Start: 2022 End: 2022 Cystourethroscopy w/internal urethrotomy male CYSTOSCOPY TRANSURETHROTOMY Cauda equina syndrome (HCC) 2022 8:30 AM EDT [facility] Start: 2022 Subsequent hospital visit by physician 2022 Hospital Encounter IP Unit Angeles Nagy MD [address] [facility], [address] [place] [address] [facility] Start: 07-01-2022 End: 06-27-2023 Basic metabolic 2000 panel - Serum or Plasma Basic Metabolic Panel Lab Routine Acute kidney injury (HCC) Expected: 07/01/2022, Expires: 06/27/2023 [facility] Work Phone: Comment on above: Expected: 07/01/2022, Expires: Start: 07-01-2022 End: 06-27-2023 CBC W Auto Differential panel - Blood CBC with Auto Differential Lab Routine Acute kidney injury (HCC) Iron deficiency anemia, unspecified iron deficiency anemia type Expected: 07/01/2022, Expires: 06/27/2023 [facility] [employer] Work Phone: Comment on above: Expected: 07/01/2022, Expires: Start: 06-22-2022 Annual Wellness Visit (AWV) Annual Wellness Visit (AWV) [facility] [employer] Start: 10-27-2021 Influenza vaccination Flu vaccine (#1) [facility] Start: 04-09-2018 Diabetic foot examination Diabetic foot exam [facility] [employer] Start: 04-09-2018 Hemoglobin A1c measurement A1C test (Diabetic or Prediabetic) [facility] [employer] Start: 04-25-2016 Lipid panel Lipids [facility] Start: 04-24-2016 Urine screening for protein Diabetic Alb to Cr ratio (uACR) test [facility] Start: 07-08-2011 Shingles vaccine (1 of 2) Shingles vaccine (1 of 2) [facility] [employer] Start: 2006 Screening for malignant neoplasm of colon [facility] Start: 1980 DTaP/Tdap/Td vaccine (1 - Tdap) DTaP/Tdap/Td vaccine (1 - Tdap) [facility] Start: 1980 Urine screening for protein Diabetes: Urine Protein Screening [facility] Start: 07-08-1979 Glaucoma screening Diabetic retinal exam [facility] Start: 07-08-1979 Hepatitis C screening Hepatitis C screen [facility] Start: 1976 HIV screening HIV screen [facility] Start: 1973 Depression Monitoring Depression Monitoring [facility] Start: 07-08-1971 Glaucoma screening Diabetes: Retinopathy Screening [facility] Start: 07-08-1967 Pneumococcal 0-64 years Vaccine (1 - PCV) Pneumococcal 0-64 years Vaccine (1 - PCV) [facility] Start: 01-06-1962 COVID-19 Vaccine (#1) COVID-19 Vaccine (#1) [facility] Start: 1961 Screening for malignant neoplasm of colon [facility] End: 06-27-2022 CBC W Auto Differential panel - Blood CBC auto differential Lab Routine Daily for 5 Days starting 06/23/2022 until 06/27/2022, 4 completed [employer] Phone: Comment on above: Daily for 5 Days starting 06/23/2022 unt il 06/27/2022, 4 completed Culture, Wound Aerob ic Only Culture, Wound Aerobic Only Microbiology [employer] Label Print 06/25/2022 12:20 PM EDT [employer] Phone: End: 06-25-2022 Hemoglobin and Hematocrit Hemoglobin and Hematocrit Lab Routine Post Transfusion Post Transfusion Post Transfustion until discontinued starting 06/24/2022, 1 completed [employer] Phone: Comment on above: Post Transfusion Post Transfusion Post T ransfustion until discontinued starting 06/24/2022, 1 completed Oxygen therapy [[facility] Data Set] Initiate Oxygen Therapy Protocol Respiratory Care Routine Daily until discontinued starting 06/22/2022 [employer] Phone: Comment on above: Daily until discontinued starting 2022 End: 06-24-2022 PREPARE RBC (CROSSMATCH), 1 Units PREPARE RBC (CROSSMATCH), 1 Units Blood Bank Routine Once for 1 Occurrences starting 06/24/2022 until 06/24/2022 [employer] Phone: Comment on above: Once for 1 Occurrences starting 06/25/19 until 06/24/2022 End: 06-25-2022 Surgical Pathology Surgical Pathology Lab Routine One Time for 1 Occurrences starting 06/25/2022 until 06/25/2022 [employer] Phone: Comment on above: One Time for 1 Occurrences starting 05/29 until 06/25/2022 Surgical Pathology Surgical Path ology Lab Routine Hyperkalemia Release Upon Ordering for 1 Occurrences starting 06/26/2022 [employer] Phone: Comment on above: Release Upon Ordering for 1 Occurrences starting 06/26/2022 End: 06-25-2022 SURGICAL PATHOLOGY REPORT SURGICAL PATHOLOGY REPORT Lab Routine Once for 1 Occurrences starting 06/25/2022 until 06/25/2022 [employer] Work Phone: Comment on above: Once for 1 Occurrences starting 06/26/19 until 06/25/2022 End: 06-26-2022 SURGICAL PATHOLOGY REPORT SURGICAL PATHOLOGY REPORT Lab Routine Once for 1 Occurrences starting 06/26/2022 until 06/26/2022 [employer] Work Phone: Comment on above: Once for 1 Occurrences starting 06/27/19 until 06/26/2022 Immunizations Immunization Date Immunization Notes Care Provider Fa [facility] 02-11-2023 influenza, injectabl e, quadrivalent, preservative free MD Fidel Abbott Work Phone: [facility] 04-10-2017 influenza virus vaccine, unspecified formulation Parvin VILLA [facility] Comment on above: Result Comment: 2022: VIS DATE: 11/02/2014 04-10-2017 influenza, injectabl e, quadrivalent, preservative free Fidel Abbott MD Work Phone: [facility] 01-28-2016 Influenza Vaccine, unspecified formulation Fidel Abbott MD Work Phone: [facility] 01-01-2015 influenza virus vaccine, unspecified formulation Parvin VILLA [facility] 01-01-2015 influenza, seasonal, injectable MD Fidel Abbott Work Phone: [facility] 01-10-2014 influenza virus vaccine, unspecified formulation Parvin VILLA [facility] Payers Date Payer Category Payer Self-pay [id number] 2021 Unknown BCBS BCBS xxxxxx [id number] 2021-Present [phone] [address] [place] [address] [id number] 2015 Unknown [id number] 2006 Medicare MEDICARE MEDICAR E PART B [id number] 2006-[place] [address] Medicare [id number] 1961 Unknown [id number] 2.16.840.1.788179.3.579.2.593 1961 Unknown [id number] 2.16.840.1.392768.3.579.2.593 1961 Unknown [id number] 2.16.840.1.115260.3.579.2.593 1961 Unknown [id number] 2.16.840.1.941483.3.579.2.173 1961 Unknown [id number] 2.16.840.1.536275.3.579.2.173 1961 Unknown [id number] 2.16.840.1.155981.3.579.2.173 1961 Unknown [id number] 2.16.840.1.628573.3.579.2.173 1961 Unknown [id number] 2.16.840.1.754337.3.579.2.173 1961 Unknown [id number] 2.16.840.1.118399.3.579.2.173 1961 Unknown [id number] 2.16.840.1.397009.3.579.2.173 1961 Unknown [id number] 2.16.840.1.973749.3.579.2.173 1961 Unknown [id number] 2.16.840.1.144075.3.579.2.125 1961 Unknown [id number] 2.16.840.1.602251.3.579.2.1258 1961 Unknown [id number] 2.16.840.1.398903.3.579.2.1258 1961 Unknown [id number] 2.16.840.1.477562.3.579.2.1258 1961 Unknown [id number] 2.16.840.1.149775.3.579.2.1258 1961 Unknown [id number] 2.16.840.1.598354.3.579.2.1258 1961 Unknown [id number] 2.16.840.1.614736.3.579.2.1258 1961 Unknown [id number] 2.16.840.1.371496.3.579.2.1258 1961 Unknown [id number] 2.16.840.1.186184.3.579.2.1258 1961 Unknown [id number] 2.16.840.1.985766.3.579.2.1258 1961 Unknown [id number] 2.16.840.1.250740.3.579.2.1258 1961 Unknown [id number] 2.16.840.1.126822.3.579.2.125 1961 Unknown [id number] 2.16.840.1.143950.3.579.2.727 1961 Unknown [id number] 2.16.840.1.639839.3.579.2. 1961 Unknown [id number] 2.16.840.1.624035.3.579.2.727 1961 Unknown [id number] 2.16.840.1.644163.3.579.2.727 1959 Medicare [id number] 1959 Unknown [id number] 1959 Unknown [id number] Unknown [id number] 2.16.840.1.928120.3.579.2.531 Unknown [id number] 2.16.840.1.348323.3.579.2.531 Unknown [id number] 2.16.840.1.199649.3.579.2.531 Unknown [id number] 2.16.840.1.719616.3.579.2.531 Unknown [id number] 2.16.840.1.300850.3.579.2.531 Social History Date Type Detail Facility Start: 01-27-2022 End: 06-04-2023 Tobacco smoking status NHIS Never smoked tobacco (finding) [facility] Start: 1960 Sex Assigned At Male F [facility] Start: 06-22-2022 End: 02-23-2023 Tobacco use and exposure Smokeless tobacco non-user [employer] Phone: Start: 06-22-2022 End: 07-14-2022 Alcohol intake Current non-drinker of alcohol (finding) [employer] Phone: Start: 1960 Sex Assigned At Not on file B ON [employer] Phone: Start: 06-12-2022 End: 06-22-2022 Exposure to SARS-CoV-2 (event) Not sure [facility] Start: 06-23-2022 History SDOH Alcohol Frequency 1 [employer] Phone: Start: 06-23-2022 History SDOH Alcohol Std Drinks 0 [employer] Phone: Tobacco smoking status Never [facility] Start: 04-29-2023 End: 05-06-2023 Sex Assigned At Male [facility] Start: 04-29-2023 End: 05-06-2023 Alcohol intake Lifetime non-drinker (finding) [facility] Start: 04-29-2023 End: 05-06-2023 History of Social function [facility] Medical Equipment Procedure Code Equipment Code Equipment Origin al Text Equipment Identifier Dates Wound debridement EPIFIX MESH SH EET 4X4.5CM FDA Start: 06-04-2023 Wound debridement Collagen wound matrix dressing ()[id number] FDA Start: 06-04-2023 Wound debridement Collagen wound matrix dressing ()[id number] FDA Start: 06-04-2023 Wound debridement EPIFIX MESH SH EET 4X4.5CM FDA Start: 06-04-2023 Amputation, toe Collagen wound matrix dressing ()[id number] FDA Start: 02-10-2023 Graft Subst Resorbable Mini 5cc [id number] Start: 12-25-2016 Comment on above: Description: tobramy icin recostituted with 10ml normal saline ref # [id number] exp 07/27/2018 lot # [id number] Goals Date Patient Goal Desired Activity /State Functional Status Date Assessment Result Facility 11-09-2022 Functional Status N/A [facility] Clinical Notes 07-29-2021 to 05-13-2023 Telephone Encounter - Sandhya Velasquez RN - 05/13/2023 3:00 PM ESTTelephone Encounter - Sandhya Velasquez RN - 05/13/2023 3:00 PM Katt Moffett DPM - 05/06/2023 10:20 AM EST Note Date & Type Note Facility 05-13-2023 Telephone encount er Note Patient called to inquire about the antibiotic that was supposed to be sent after his 05/06 visit. Can you resend? Thank you! [facility] 05-13-2023 Miscellaneous Notes Formattin g of this note might be different from the original. Patient called to inquire about the antibiotic that was supposed to be sent after his 05/06 visit. Can you resend? Thank you! documented in this encounter [facility] 05-06-2023 History of Presen t illness Narrative [...] unable to go to wound care at [facility] Patient also has Integra wound graft to [...] or home health. Patient currently going at [facility] for decubitus ulcer Patient still awaits MRI approval as had to be resubmitted due to need for new x-ray on previous visit in awaits MRI at [facility] . 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 Ulcer of left ankle, with necrosis of bone (HCC) (CMS/HCC) 2. Diabetes mellitus due to underlying condition with diabetic polyneuropathy, unspecified whether detention insulin use (CMS/HCC) 3. Acute complete paraplegia [...] oral antibiotics Patient to follow up with [facility] for decubitus ulcer and instructions given to contact [facility] for follow-up.. Skin flap area of [...] Jonathan Moffett DPM documented in this encounter [facility] 05-04-2023 Progress note Note Date/Time May 04, 2023 12:48pm [facility] [address] [place] [address] Wound Center Provider Note Signed Patient: Ganga Stinson MR#: [id number] : 1960 Acct:[id number] Age/Sex: 62 / M Copies to: MD Fidel Whitmore MD~ HPI Date of Visit Date of Visit: Date of Service: 05/04/2023 Time of Service: 12:47 Narrative HPI: The last time I saw the patient was about 3 months ago. Patient is being followed here for sacral and ischial ulcers. He has left foot osteomyelitis being treated by podiatry. Patient also has some left lower extremity and foot ulcers. Dressing changes are being done at home. Patient denies other new medical problems. Last hemoglobin A1c was 7.2 he states. Patient denies any new medical problems. His sacral and right ischial ulcer show pink and red granulation tissue. There is no exposed bone or purulent drainage. The left ischial ulcer is very small. Subjective Pain Bilateral Buttock: Pain Intensity: 0 Right Foot: Pain Intensity: 0 Wound/Ulcer History When did wound start?: years Mode of Arrival/ Scallop Dredger: Personal vehicle Assistive Device Used Today: Wheelchair Lives with:: Spouse Appetite Description: Within Normal Limits Who helps w/ dressing change?: Significant Other Why Do You Need Help?: Can't Reach Ulcer, Limited mobility, Unsafe leave home byself and Taxing effort to leave home Smoking Status: Never smoker Constitutional Constitutional: Denies fever(s) Integumentary/Breasts Skin/Breast: Reports wounds PMFSH Medical History Acute kidney failure Cauda equina compression Decubitus [...] filter Family History Father Autoimmune disorder Mother Myocardial infarction Hypertension Social History Smoking Status: Never smoker Substance Use Type: None Social History Comments: , adult daughter, 2 grandchildren (ages 11 and 12) Grafts History of Graft History of Graft?: No Exam Physical Exam Vital Signs: Temp Pulse Resp BP O2 Del Method 97.3 F L 64 18 177/78 H Room Air 05/04/23 11:25 05/04/23 11:25 05/04/23 11:25 05/04/23 11:25 05/04/23 11:25 Const General: cooperative and no acute distress Skin Wounds: wounds noted Neuro General: patient alert and patient awake Extrem General: edema Lower/Upper Extremity Exam Vascular Exam-Edema Right Lower Extremity: Edema Type: Non-Pitting Vascular Exam-Pulses Right Brachial: Pulse Assessment Method: NIBP Objective Meds/Allergies Home Medications citalopram 40 mg tablet (Celexa) 40 mg PO DAILY Depression 12/07/16 [History Confirmed 05/04/23] lisinopril 10 mg tablet 20 mg PO QAM HTN 12/07/16 [History Confirmed 05/04/23] amlodipine 10 mg tablet 10 mg PO QAM HTN 12/08/16 [History Confirmed 05/04/23] atenolol 100 mg tablet 100 mg PO DAILY HTN 11/03/17 [History Confirmed 05/04/23] glipizide 10 mg tablet 10 mg PO BID 06/30/18 [History Confirmed 05/04/23] sitagliptin phosphate 100 mg tablet (Januvia) 100 mg PO DAILY 07/29/21 [History Confirmed 05/04/23] oxybutynin chloride 15 mg tablet,extended release 24 hr 15 mg PO DAILY 02/07/23 [History Confirmed 05/04/23] fenofibrate nanocrystallized 145 mg tablet 145 mg PO QHS #0 tabs 02/13/23 [Rx Confirmed 05/04/23] oxybutynin chloride 5 mg tablet,extended release 24 hr 15 mg (3 x 5 mg) PO DAILY30 days #90 tabs 02/13/23 [Rx Confirmed 05/04/23] atorvastatin 40 mg tablet 40 mg PO DAILY 05/04/23 [History Confirmed 05/04/23] Allergies vancomycin Adverse Reaction (Severe, Verified 02/08/23 12:50) Shut kidneys down ferrous sulfate Adverse Reaction (Verified 02/07/23 15:14) Itching Wound/Ulcer Right Lateral Ankle: Bed Appearance: [place] and Yellow Percent of Wound Bed Granulated/Red: 5 Percent of Devitalized: 95 Length (cm): 2.5 Width (cm): 2.0 Depth (cm): 0.7 CM Sq: 5.000 Surrounding Tissue Appearance: Hyperpigmented Surrounding Tissue Temp: Warm Drainage Amount: Moderate Drainage Description: Yellow Drainage Odor: No Odor Right Heel: Bed Appearance: Black Moist, Brown, Devitalized and Yellow Percent of Wound Bed Granulated/Red: 5 Percent of Devitalized: 95 Length (cm): 6.5 Width (cm): 11.0 Depth (cm): 0.4 CM Sq: 71.500 Surrounding Tissue Appearance: Hyperpigmented Surrounding Tissue Temp: Warm Drainage Amount: Large Drainage Description: Yellow Right Medial Leg: Bed Appearance: Black Moist, Brown, Devitalized, Epithelial Tissue or Bridge and Yellow Percent of Wound Bed Granulated/Red: 10 Percent of Devitalized: 90 Length (cm): 12.0 Width (cm): 8.0 Depth (cm): 0.2 CM Sq: 96.000 Surrounding Tissue Appearance: Hyperpigmented Surrounding Tissue Temp: Warm Drainage Amount: Large Drainage Description: Yellow Drainage Odor: No Odor Right Medial Foot: Bed Appearance: Olancha and Yellow Percent of Wound Bed Granulated/Red: 50 Percent of Devitalized: 50 Length (cm): 1.0 Width (cm): 1.0 Depth (cm): 0.3 CM Sq: 1.000 Surrounding Tissue Appearance: Hyperpigmented Surrounding Tissue Temp: Warm Drainage Amount: Moderate Drainage Description: Serosanguineous Drainage Odor: No Odor Sacrum: Bed Appearance: Beefy Red, Olancha and Yellow Percent of Wound Bed Granulated/Red: 90 Percent of Devitalized: 10 Length (cm): 2.9 Width (cm): 1.5 Depth (cm): 2.5 CM Sq: 4.350 Undermining Position: 360 deepest at 9:00 Undermining Depth: 4.0 Surrounding Tissue Appearance: Hyperpigmented, Macerated and Callous Surrounding Tissue Temp: Warm Drainage Amount: Large Drainage Description: Serosanguineous Drainage Odor: No Odor Right Ischium: Bed Appearance: Beefy Red, Olancha and Yellow Percent of Wound Bed Granulated/Red: 90 Percent of Devitalized: 10 Length (cm): 5.3 Width (cm): 7.5 Depth (cm): 4.0 CM Sq: 39.750 Surrounding Tissue Appearance: Olancha, Macerated and Callous Surrounding Tissue Temp: Warm Drainage Amount: Large Drainage Description: Serosanguineous Drainage Odor: No Odor Left Ischium: Bed Appearance: Beefy Red and Olancha Percent of Wound Bed Granulated/Red: 100 Percent of Devitalized: 0 Length (cm): 0.5 Width (cm): 0.2 Depth (cm): 4.0 CM Sq: 0.100 Surrounding Tissue Appearance: Macerated and Callous Surrounding Tissue Temp: Warm Drainage Amount: Moderate Drainage Description: Serosanguineous Drainage Odor: No Odor Results Height: 5 ft 11 in Weight: 113.398 kg Body Mass Index: 34.8 Assessment/Plan Assessment/Plan (1) Stage IV pressure ulcer of sacral region: Code(s): L89.154 - Pressure ulcer of sacral region, stage 4 (2) Stage IV pressure ulcer of right buttock: Code(s): L89.314 - Pressure ulcer of right buttock, stage 4 (3) Pressure ulcer of left buttock, stage 3: Code(s): L89.323 - Pressure ulcer of left buttock, stage 3 (4) Diabetes mellitus due to underlying condition with diabetic neuropathy, withlong-term current use of insulin: Code(s): E08.40 - Diabetes mellitus due to underlying condition with diabetic neuropathy,unspecified; Z79.4 - long term care phlebotomist (current) use of insulin (5) Foot ulcer with fat layer exposed: Code(s): L97.502 - Non-pressure chronic ulcer of other part of unspecified foot with fat layer exposed (6) Cauda equina spinal cord injury: Qualifiers: Encounter type: subsequent encounter Qualified Code(s): S34.3XXD - Injury of cauda equina, subsequent encounter Code(s): S34.3XXA - Injury of cauda equina, initial encounter Plan Will continue the patient's current dressing changes being done at home. Patient already sees podiatry for his left foot. He is to see podiatry this week and we did ask the patient to have podiatry evaluate the other foot. Patient follow-up here in 1 month. See Instructions for Orders See Instructions for Orders See Wound Discharge Instructions for Orders: Dictated By: Cathy Brar MD DD/ [id number] Signed By: <Electronically signed by MD Cathy Brar> 05/04/[address] [facility] Work Phone: [phone] Hospital Discharge instructions Patient Education 11/09/2022 14:08:53 Acute Urinary Retention, Male Acute Urinary Retention, Male Acute urinary retention is a condition in which a person is unable to pass urine or can only pass alittle urine. This condition can happen suddenly and [...] As men age, their prostate may become largerand may start to press or squeeze on the bladder or the urethra. Other chronic health conditions can increase the risk of acute urinary retention. These include: Diseases such as multiple sclerosis. Spinal cord injuries. Diabetes. Degenerative cognitive conditions, such as delirium or dementia. Psychological conditions. A man may hold his urine due to trauma or because he does not want to usethe bathroom. What are the signs or symptoms? [...] Follow these instructions at home: Medicines Take dzmw-trm-avduvft and prescription medicines only as told by your health care provider. Avoid certain medicines, such as decongestants, antihistamines, and some prescription medicines. Do not take any medicine unless your health care provider approves. If you were prescribed an antibiotic medicine, take it as told by your health care provider. Do notstop using the antibiotic even if you start to feel better. General instructions Do not use any products that contain nicotine or tobacco. These products include cigarettes, chewing tobacco, and vaping devices, such as e-cigarettes. If you need help quitting, ask your health careprovider. Drink enough fluid to keep your urine [...] to pass urine or can only pass alittle urine. If left untreated, this condition can [...] provider. Document Revised: 12/04/2020 Document Reviewed: 12/04/2020 [employer] Patient Education 2022 [employer]. Follow Up Care 10/13/2022 11:18:02 With:ALLEN NAZARIO, Parvin Christie, URL Address: [facility] [address], [place] [phone] [phone] When: Unknown Comments:sched cysto [facility] 03-31-2023 History of Present illness Narrative* Dragan Voss RN - 06/26/2022 4:50 PM EDT Nurse went over discharge instructions with pt [...] ready to go. Call light within reach. * Madelin Hopkins PTA - 06/26/2022 12:01 PM EDT Physical Therapy Facility/Department: [facility] Daily Treatment Note NAME: [...] has no functional movement in oj LEs toassist with transfers. Subjective Subjective Subjective: Pt in [...] in place;Bed alarm in place;Call light within reach;Leftin bed;Heels elevated for pressure relief Goals Short [...] Out 1157 Minutes 24 Madelin Hopkins PTA * Gabrielle Francois - 06/26/2022 12:00 PM EDT Occupational Therapy Facility/Department: [facility] Daily Treatment Note NAME: [...] has no functional movement in oj LEs toassist with transfers. Subjective Subjective Subjective: pt in [...] in place;Bed alarm in place;Call light within reach;Leftin bed;Heels elevated for pressure relief Patient Education Education Given To: Patient Education Method: Demonstration;Verbal Barriers to Learning: None Education Outcome: Verbalized understanding;Demonstrated understanding Goals Short Term Goals Time Frame for Short Term Goals: 20 visits Short Term Goal 1: Patient will tolerate 15 mins of BUE ther ex to increase strength for functionaltransfers. Short Term Goal 2: Pt. will complete transfer to bedside commode with SBA and G safety to increase (I) with toileting tasks. Short Term Goal 3: Pt. will complete all grooming and UB ADL's with (I) after setup for safe returnhome. Short Term Goal 4: Pt. will complete toileting and LB ADL's with SBA to increase (I) with ADL routine. Therapy Time Individual Concurrent Group Co-treatment Time In 1133 Time Out 1158 Minutes 25 Gabrielle BERMUDEZ 06/26/22 * Dragan Voss RN - 06/26/2022 9:40 AM EDT Pt denied wanting to put his SCDs on even after being educated on why they were important especially after surgery. Pt stated he is aware. Will continue to monitor. * Dragan Voss RN - 06/26/2022 9:36 AM EDT Vitals and assessment done at this time. See flow sheet for more details. Pt resting in bed at thistime. Pt denied any tenderness in his abdomen. Pt denied any shortness of breath, dizziness or light headedness. Pt denied any needs at this time. Call light within reach. Will continue to monitor. * Dragan Voss RN - 06/26/2022 9:35 AM EDT Pt brought back to room 334 at this time. Report received at bedside from soco. Call light within reach will continue to monitor. * Fabby Felder RN - 06/26/2022 9:35 AM EDT Patient transported to [facility] Room 334 via cart with RN. Bedside [...] 14. Accompanied by a responsible adult. N/A * Dragan Voss RN - 06/26/2022 7:00 AM EDT Pt taken down to surgery at this tie via cart. * Panchito Crockett RN - 06/26/2022 5:00 AM EDT Pt incontinent of bowels- wound dressings changed per order. See flow sheet * Panchito Crockett RN - 06/26/2022 3:00 AM EDT Bulb Grower at bedside for wound dressing change- pt incontinent of bowels. See flow sheet for details. * Panchito Crockett RN - 06/26/2022 1:30 AM EDT Pt incontinent of stool. Bulb Grower at bedside for wound change dressing per order- see flow sheet for details. * Panchito Crockett RN - 06/26/2022 12:50 AM EDT Patient at bedside for reassessment and vitals- see flow sheet for details. Pt remains alert and oriented c4-calm and cooperative. GoLYTELY at bedside and senior copywriter encourages patient to consume fluid- pt validates understanding. Patient currently denying pain and discomfort. Denying any additional needs, call light placed within reach, bed in lowest position. Bulb Grower encourages patient to call out for assistance. Will continue to monitor. * Panchito Crockett RN - 06/26/2022 12:45 AM EDT Bulb Grower at bedside- pt incontinent of stool- wound dressing changed per order. See flow sheet. * Panchito Crockett RN - 06/25/2022 10:05 PM EDT Bulb Grower at bedside to for wound dressing change per order. See MAR for details. * Eloise Lopez PTA - 06/25/2022 3:56 PM EDT Physical Therapy Facility/Department: [facility] Daily Treatment Note NAME: [...] bed. Supine BLE PROM exercises in all [id number] ea. Seated EOB AROM in LAQ 2x [...] training;Transfer training;Endurance training;Home exercise program;Therapeutic activities;Safety education &training;Patient/Caregiver education & training Restrictions Restrictions/Precautions Restrictions/Precautions: General Precautions, Fall Risk, Contact Precautions Position Activity Restriction Other position/activity restrictions: Pt is paraplegic and has no functional movement in oj LEs toassist with transfers. Subjective Subjective Subjective: Pt in [...] in place;Bed alarm in place;Call light within reach;Leftin bed;Gait belt;Heels elevated for pressure relief;Nurse notified [...] Out 1430 Minutes 28 Eloise Lopez PTA * Zoila Villafuerte PA-C - 06/25/2022 1:07 PM EDT Images from the original note [...] never been a smoker. He saw a cable maker at [facility] 2 years ago in 2020. At that time they did a stress testwhich was okay. No family history of heart [...] himself. He follows with wound clinic at [facility]. Mr. Stinson also denied any current or recent chest pain, abdominal pain, bleeding problems, problems with his medications or any other concerns at this time. Past Medical History: Diagnosis Date Abnormal EKG 06/23/2022 Acute kidney injury superimposed on CKD (HCC) 06/23/2022 Cauda equina syndrome ([facility]) 2004 Depression Hypertension MRSA (methicillin resistant staph aureus) culture positive 04/10/2017 right ankle Open wound of right ankle 12/30/2016 Paralysis of both lower limbs ([facility]) Paraplegia ([facility]) Type II or unspecified type diabetes mellitus without mention of complication, not stated as uncontrolled Unspecified sleep apnea CURRENT ALLERGIES: Vancomycin REVIEW OF SYSTEMS: 14 systems were reviewed. Pertinent positives and negatives as above, all else negative. Past Surgical History: Procedure Laterality Date APPENDECTOMY BACK SURGERY X2 OTHER SURGICAL HISTORY Right 04/10/2017 I&D rt foot/leg wounds SD I&D BELOW FASCIA FOOT 1 BURSAL SPACE Right 12/25/2016 FOOT DEBRIDEMENT INCISION AND DRAINAGE, 5TH DIGIT, PARTIAL AMB. PLACEMENT OF ANTIBOTIC BEADS performed by Gabriel Haile DPM at [facility] OR SD I&D BELOW FASCIA FOOT 1 BURSAL SPACE Right 04/10/2017 RIGHT ANKLE AND RIGHT HEEL DEBRIDEMENT INCISION AND DRAINAGE WITH CULTURES SENT performed by William Jimenez MD at [facility] OR SD OFFICE/OUTPT VISIT,PROCEDURE ONLY Right 06/14/2017 FOOT DEBRIDEMENT INCISION AND DRAINAGE-ANKLE INCLUDING BONE BIOPSY performed by Ro Husseint [facility] OR TOE AMPUTATION Right 12/25/2016 right fifth toe amputation with I&D, ATB beads per Dr. Haile [employer]NA [employer]AVA FILTER PLACEMENT greycliff filter Social History: Social History Tobacco Use [...] 16 Ht 5' 11 (1.803 m) Wt 248lb 14.4 oz (112.9 kg) SpO2 94% BMI 34.71 kg/m Body mass index is 34.71 kg/m . Constitutional: He is oriented to person, place, and time. He appears well- developed and well-nourished. In no acute distress. HEENT: [...] Pressure injury of right ankle, stage 4 ([facility]) 06/24/2022 Open wound of right ankle 12/30/2016 Mixed hyperlipidemia 04/25/2015 Hyponatremia 04/25/2015 Diabetes mellitus ([facility]) 07/02/2011 Paraplegia ([facility]) 03/12/2011 MSSA (methicillin susceptible Staphylococcus aureus) infection 05/28/2017 Bacterial infection 02/17/2017 Enterococcus faecalis infection 12/28/2016 Skin ulcer of right heel with fat layer exposed ([facility]) 09/02/2016 Skin ulcer of right 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 ([facility]) 04/25/2015 Decubitus ulcer of coccygeal region 07/19/2013 Cauda equina syndrome ([facility]) 12/09/2011 Open wound of knee, leg (except thigh), and ankle, complicated 02/25/2011 Acute kidney injury superimposed on CKD ([facility]) 06/23/2022 Abnormal EKG 06/23/2022 Neurogenic bladder 06/23/2022 Hyperkalemia 06/22/2022 Osteomyelitis of ankle or foot, right, acute (HCC) Decubitus ulcer of coccygeal region, stage 4 (HCC) 04/09/2017 Cellulitis 04/08/2017 Morbid obesity due to excess calories (HCC) 01/01/2017 Acute on chronic renal failure (HCC) 12/30/2016 Osteomyelitis of right foot (HCC) Hypertension Depression PLAN: Pre-Op Clearance: Pre-Operative Risk assessment using 2014 ACC/AHA guidelines Emergent procedure No Active Cardiac Condition No (decompensated HF, Arrhythmia, NM <3 weeks, severe valve disease) Risk Level [...] with the plan. Sincerely, Zoila Villafuerte PA-C [facility] [employer] [address] [place], [place] [id number] , I believe that the risk of significant morbidity and mortality related to the patient's current medical conditions are: intermediate-high. June 25, 2022 * Heri Valdez RN - 06/25/2022 12:[address] Min completed bedside procedure and I sent wound pathology and culture to lab per request of Dr. Min. * Yakov Min DPM - 06/25/2022 12:21 PM EDT Patient visited @ bedside for planned minor [...] Paralysis of both lower limbs (HCC) Paraplegia ([facility]) Type II or unspecified type diabetes mellitus without mention of complication, not stated as uncontrolled Unspecified sleep apnea Past Surgical History: Procedure Laterality Date APPENDECTOMY BACK SURGERY X2 OTHER SURGICAL HISTORY Right 04/10/2017 I&D rt foot/leg wounds SD I&D BELOW FASCIA FOOT 1 BURSAL SPACE Right 12/25/2016 FOOT DEBRIDEMENT INCISION AND DRAINAGE, 5TH DIGIT, PARTIAL AMB. PLACEMENT OF ANTIBOTIC BEADS performed by Gabriel Haile DPM at [facility] OR SD I&D BELOW FASCIA FOOT 1 BURSAL SPACE Right 04/10/2017 RIGHT ANKLE AND RIGHT HEEL DEBRIDEMENT INCISION AND DRAINAGE WITH CULTURES SENT performed by William Jimenez MD at [facility] OR SD OFFICE/OUTPT VISIT,PROCEDURE ONLY Right 06/14/2017 FOOT DEBRIDEMENT INCISION AND DRAINAGE-ANKLE INCLUDING BONE BIOPSY performed by Enrique Hussein [facility] OR TOE AMPUTATION Right 12/25/2016 right fifth toe amputation with I&D, ATB beads per Dr. Haile [employer] greycliff filter Allergies Allergen Reactions Vancomycin States had kidney issues after taking Current Facility-Administered Medications: gentamicin (GARAMYCIN) 250 mg in sterile water for irrigation 250 mL irrigation, 250 mg, Irrigation, Once, Yakov Min DPM 0.9 % sodium chloride infusion, , IntraVENous, PRN, Shelly Mondragon, ESTELLE - DOLLY polyethylene glycol (GoLYTELY) solution 4,000 mL, 4,000 mL, Oral, Once, ESTELLE Katz CNP multivitamin 1 tablet, 1 tablet, Oral, Daily, Matias Garcia MD, 1 tablet at 06/25/22 0724 amLODIPine (NORVASC) tablet 10 mg, 10 mg, Oral, Daily, Matias Garcia MD, 10 mg at 06/25/22 0723 atenolol (TENORMIN) tablet 100 mg, 100 mg, Oral, Daily, Matias Garcia MD, 100 mg at 06/25/22 0723 fenofibrate (TRIGLIDE) tablet 160 mg, 160 mg, Oral, Daily, Matias Garcia MD, 160 mg at 06/25/22 0724 citalopram (CELEXA) tablet 40 mg, 40 mg, Oral, Daily, Matias Garcia MD, 40 mg at 06/25/22 0723 clindamycin (CLEOCIN) 600 mg in dextrose 5 % 50 mL IVPB, 600 mg, IntraVENous, Q8H, ESTELLE Katz CNP, Stopped at 06/25/22 0922 sodium hypochlorite (DAKINS) 0.125 % external solution, , Irrigation, Daily, Rosie Soni MD, Given at 06/25/22 1127 0.9 % sodium chloride infusion, , IntraVENous, Continuous, Matias Garcia MD, Last Rate: 75 mL/hr at06/25/22 0020, New Bag at 06/25/22 0020 sodium chloride flush 0.9 % injection 10 mL, 10 mL, IntraVENous, 2 times per day, Matias Garcia MD sodium chloride flush 0.9 % injection 10 mL, 10 mL, IntraVENous, PRN, Matias Garcia MD 0.9 % sodium chloride infusion, , IntraVENous, PRN, Matias Garcia MD ondansetron (ZOFRAN-ODT) disintegrating tablet 4 mg, 4 mg, Oral, Q8H PRN OR ondansetron (ZOFRAN) injection 4 mg, 4 mg, IntraVENous, Q6H PRN, Matias Garcia MD polyethylene glycol (GLYCOLAX) packet 17 g, 17 g, Oral, Daily PRN, Matias Garcia MD acetaminophen (TYLENOL) tablet 650 mg, 650 mg, Oral, Q6H PRN OR acetaminophen (TYLENOL) suppository 650 mg, 650 mg, Rectal, Q6H PRN, Matias Garcia MD [Held by provider] heparin (porcine) injection 5,000 Units, 5,000 Units, SubCUTAneous, 3 times per day, Matias Garcia MD, 5,000 Units at 06/23/22 1570 PE: VSS, Afebrile, NAD, A&O x 3, Aloof Labs: as above RLE ; lateral ankle ; FT+ ulcerative wound , +PTB IMP: stage 4 ankle decubitus, appaarent bone involvement Stable for minor bedside procedure Tx: see procedure notes P: see orders / AVS Yakov Min DPM 06/25/2022 12:28 PM * LAURENT Gomez - 06/25/2022 11:55 AM EDT Occupational Therapy Facility/Department: [facility] Daily Treatment Note NAME: [...] bed as Dr is coming to complete debridementsoon. Pt and clinician discussed d/c planning, safety, and home modification/set up at length. I have been doing this for 18 years, I think I have everything the way I need it. Pain: denied Objective Vitals Pt declined need for ADLs OT Exercises Exercise Treatment: BUE therex to increase strength/endurance for ease of fxl tasks. Green digiflexx 20, yellow flex bar bends x 20 [...] BUE ther ex to increase strength for functionaltransfers. Short Term Goal 2: Pt. will complete transfer to bedside commode with SBA and G safety to increase (I) with toileting tasks. Short Term Goal 3: Pt. will complete all grooming and UB ADL's with (I) after setup for safe returnhome. Short Term Goal 4: Pt. will complete toileting and LB ADL's with SBA to increase (I) with ADL routine. Therapy Time Individual Concurrent Group Co-treatment Time In 1023 Time Out 1048 Minutes 25 LAURENT Gomez * Heri Valdez RN - 06/25/2022 11:30 AM EDT Dressing change on sacrum/buttocks completed as ordered with assistance from another RN and student. Linens replaced and student completed bed bath. Pt denies any further needs at this time, call light within reach, will continue to monitor. * Angeles Nagy MD - 06/25/2022 8:05 AM EDT Urology Progress Note CC: urinary retention Subjective: [...] weeks. Angeles Nagy MD 8:05 AM 06/25/2022 * Shelly MoralesShea, COMMUNITY FACILITATOR - COMBINATION MACHINE TOOL SETTER - 06/25/2022 7:34 AM EDT Images from the original note were [...] ml Output 3225 ml Net -687.47 ml Exam: GEN: Awake, alert and oriented x3. [...] cm depth Right ankle Right lateral ankle Diagnostic Data: Complete Blood Count: Recent Labs [...] labs-Hgb 7.6 today Nutrition status: morbid obesity Demand Generation Manager consult initiated Hospital Prophylaxis: DVT: Heparin Stress Ulcer: na Disposition: Shared decision making: All test results, treatment options and disposition options were discussed with the patient today Social determinants of health that may impact management: none Code status: Full Code Disposition: Discharge plan is home [facility] Advanced Care Planning documentation: [x] I have confirmed that the patient's Advance Care Plan is present, Code Status is documented, orsurrogate decision maker is listed in the patient's [...] the patient's medical record. [DOES NOT SATISFY [facility] PERFORMANCE] Shelly Mondragon APRN - DOLLY , MARIFER MCCABE-C Hospitalist Medicine 06/25/2022, 7:34 AM IVETT Newman Associated attestation - Matias Garcia MD - 06/25/2022 7:34 PM EDT Images from the original note were not included. [address], [place], [place], [address] Attestation Patient: Ganga Evans Alloweleuterio Date of Admission: 06/22/2022 4:21 PM Hospital Day # 3 Date of Evaluation: 06/25/2022 I personally evaluated and examined the patient [id number] in conjunction with the PA/THERAPIST SPEECH and agree with the management and dispostition of the patient. Please see the PA/THERAPIST SPEECH's note for full details.My kohli findings are: SUBJECTIVE: Patient seen for [...] INTAKE/OUTPUT: Intake/Output Summary (Last 24 hours) at 06/25/20221931 Last data filed at 06/25/2022 1845 Gross per 24 hour Intake 1826.53 ml Output 2650 ml Net -823.47 ml Exam: GEN: Awake, alert and oriented x3. [...] with the plan as outlined in the THERAPIST SPEECH/PA's note Disposition: Discharge plan is pending Please note that this chart was generated using voice recognition [employer] dictation software. Although every effort was made to ensure the accuracy of this automated commercial credit lead, some errors in commercial credit lead may have occurred. Matias Garcia MD 06/25/2022 7:32 PM * Heri Valdez RN - 06/25/2022 6:43 AM EDT Pt vitals and assessment completed, see flowsheet. Pt A&Ox4, breathing normal. Morning hemoglobin is 7.6. Pt denies pain or sob. Pt denies pain or any further needs at this time, call light within reach, will continue to monitor. * Geneva Samayoa RN - 06/25/2022 12:52 AM EDT Bulb Grower at bedside at this time to perform second shift assessment. Patient is lying in bed at this time. Vital signs taken and assessment completed at this time. Patient is alert and oriented and hasno complaints of pain at this time. Wound care completed at this time, patient tolerated well. Scheduled Cleocin hung at this time. Patient denies any further needs at this time. Call light within reach, care ongoing. * Geneva Samayoa RN - 06/24/2022 6:43 PM EDT Bulb Grower at bedside at this time to perform initial shift assessment. Patient is lying in bed at thistime. Vital signs taken and assessment completed at this time. Patient is alert and oriented and has no complaints of pain of pain at this time. Patient denies any further needs at this time. Call light within reach, care ongoing. * Martita Tam PTA - 06/24/2022 4:57 PM EDT Physical Therapy Facility/Department: [facility] Daily Treatment Note NAME: [...] training;Transfer training;Endurance training;Home exercise program;Therapeutic activities;Safety education &training;Patient/Caregiver education & training Restrictions Restrictions/Precautions Restrictions/Precautions: General Precautions, Fall Risk, Contact Precautions Position Activity Restriction Other position/activity restrictions: Pt is paraplegic and has no functional movement in oj LEs toassist with transfers. Subjective Subjective Subjective: Pt in [...] hamstring stretching to B LE 3x20 . Bhip flex stretching 3x20 . Safety Devices Type [...] 1624 Time Out 1643 Minutes 19 Martita Tam, RUBY ENGINEER * Heri Valdez RN - 06/24/2022 4:00 PM EDT Dressing change completed as ordered, see flowsheet for assessment. Pt is being assisted washing upby aide. * Zoila Villafuerte PA-C - 06/24/2022 12:45 PM EDT Images from the original note [...] never been a smoker. He saw a cable maker at [facility] 2 years ago in 2020. At that time they did a stress testwhich was okay. No family history of heart [...] himself. He follows with wound clinic at [facility]. Mr. Stinson also denied any current or recent chest pain, abdominal pain, bleeding problems, problems with his medications or any other concerns at this time. Past Medical History: Diagnosis Date Abnormal EKG 06/23/2022 Acute kidney injury superimposed on CKD (HCC) 06/23/2022 Cauda equina syndrome ([facility]) 2003 Depression Hypertension MRSA (methicillin resistant staph aureus) culture positive 04/10/2017 right ankle Open wound of right ankle 12/30/2016 Paralysis of both lower limbs ([facility]) Paraplegia ([facility]) Type II or unspecified type diabetes mellitus without mention of complication, not stated as uncontrolled Unspecified sleep apnea CURRENT ALLERGIES: Vancomycin REVIEW OF SYSTEMS: 14 systems were reviewed. Pertinent positives and negatives as above, all else negative. Past Surgical History: Procedure Laterality Date APPENDECTOMY BACK SURGERY X2 OTHER SURGICAL HISTORY Right 04/10/2017 I&D rt foot/leg wounds SD I&D BELOW FASCIA FOOT 1 BURSAL SPACE Right 12/25/2016 FOOT DEBRIDEMENT INCISION AND DRAINAGE, 5TH DIGIT, PARTIAL AMB. PLACEMENT OF ANTIBOTIC BEADS performed by Gabriel Haile DPM at [facility] OR SD I&D BELOW FASCIA FOOT 1 BURSAL SPACE Right 04/10/2017 RIGHT ANKLE AND RIGHT HEEL DEBRIDEMENT INCISION AND DRAINAGE WITH CULTURES SENT performed by William Jimenez MD at [facility] OR SD OFFICE/OUTPT VISIT,PROCEDURE ONLY Right 06/14/2017 FOOT DEBRIDEMENT INCISION AND DRAINAGE-ANKLE INCLUDING BONE BIOPSY performed by Ro Husseint [facility] OR TOE AMPUTATION Right 12/25/2016 right fifth toe amputation with I&D, ATB beads per Dr. Consolo [employer] edgard filter Social [...] 20 Ht 5' 11 (1.803 m) Wt 248lb 11.2 oz (112.8 kg) SpO2 93% BMI 34.69 kg/m Body mass index is 34.69 kg/m . Constitutional: He is oriented to person, place, and time. He appears well- developed and well-nourished. In no acute distress. HEENT: [...] Mixed hyperlipidemia 04/25/2015 Hyponatremia 04/25/2015 Diabetes mellitus ([facility]) 07/02/2011 Paraplegia ([facility]) 03/12/2011 MSSA (methicillin susceptible Staphylococcus aureus) infection 05/28/2017 Bacterial infection 02/17/2017 Enterococcus faecalis infection 12/28/2016 Skin ulcer of right heel with fat layer exposed ([facility]) 09/02/2016 Skin ulcer of right 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 ([facility]) 04/25/2015 Decubitus ulcer of coccygeal region 07/19/2013 Cauda equina syndrome (HCC) 12/09/2011 Open wound of knee, leg (except thigh), and ankle, complicated 02/25/2011 Acute kidney injury superimposed on CKD (HCC) 06/23/2022 Abnormal EKG 06/23/2022 Neurogenic bladder 06/23/2022 Hyperkalemia 06/22/2022 Osteomyelitis of ankle or foot, right, acute (HCC) Decubitus ulcer of coccygeal region, stage 4 (HCC) 04/09/2017 Cellulitis 04/08/2017 Morbid obesity due to excess calories (HCC) 01/01/2017 Acute on chronic renal failure (HCC) 12/30/2016 Osteomyelitis of right foot (HCC) Hypertension Depression PLAN: Abnormal EKG Agree with [...] with the plan. Sincerely, Zoila Villafuerte PA-C [facility] [employer] [address] [place], [place] [id number] , I believe that the risk of significant morbidity and mortality related to the patient's current medical conditions are: intermediate-high. June 24, 2022 * Heri Valdez RN - 06/24/2022 10:36 AM EDT Blood administration has been initiated, pt observed for first 15 minutes and vitals taken according to policy. The rate was increased to 120ml/hr. Pt denies any further needs at this time, call light within reach, will continue to monitor. * Gabrielle Alessandro - 06/24/2022 10:32 AM EDT Occupational Therapy Facility/Department: [facility] Daily Treatment Note NAME: [...] has no functional movement in oj LEs toassist with transfers Subjective Subjective Subjective: pt lying in bed. denying getting into chair. per nursing- pt getting unit of blood thismorning Pain: pt had no complaints of pain. just tired Orientation Overall Orientation Status: Within Functional Limits Pain: no pain, just fatigued Objective Vitals Bed Mobility Training Bed Mobility Training: (positioned on side for [employer] to complete ultrasound at end of session) [...] in place;Bed alarm in place;Call light within reach;Leftin bed;Nurse notified;Heels elevated for pressure relief;Patient at risk for falls Patient Education Education Given To: Patient Education Provided: Role of Therapy;Plan of Care;Transfer Training Education Method: Demonstration;Verbal Education Outcome: Verbalized understanding;Demonstrated understanding Goals Short Term Goals Time Frame for Short Term Goals: 20 visits Short Term Goal 1: Patient will tolerate 15 mins of BUE ther ex to increase strength for functionaltransfers. Short Term Goal 2: Pt. will complete transfer to bedside commode with SBA and G safety to increase (I) with toileting tasks. Short Term Goal 3: Pt. will complete all grooming and UB ADL's with (I) after setup for safe returnhome. Short Term Goal 4: Pt. will complete toileting and LB ADL's with SBA to increase (I) with ADL routine. Therapy Time Individual Concurrent Group Co-treatment Time In 927 Time Out 09 Minutes 25 Gabrielle ABRAHAM/Cristina 06/24/22 * Heri Valdez RN - 06/24/2022 10:29 AM EDT Pt vitals and assessment completed, see flowsheet. Pt A&O x4, breathing normal. Pt denies chestpain, feeling sob, or dizziness. Pt dressings show no drainage through the top gauze, will change dressing as ordered this afternoon. Pt denies pain or any further needs at this time, call light within reach will continue to monitor. * Katerina Atkins MD - 06/24/2022 8:17 AM EDT Gastroenterology Progress Note Discussed case with primary team Anemia of hemoglobin 6; no hematemesis, no hematochezia or melena reported. Iron deficiency work-upis warranted. EGD and colonoscopy - anticipate procedure on Wednesday06/26/2022. Golytely prep on 06/25/2022 6pm KATERINA ATKINS MD [facility] Gastroenterology * Shelly Mondragon, ESTELLE - COMBINATION MACHINE TOOL SETTER - 06/24/2022 7:34 AM EDT Images from the original note were not included. Progress Note SUBJECTIVE: Patient seen for f/u of Hyperkalemia. He resting in bed with no complaints. Stated when he has a BMand wipes he does have some blood but [...] ml Output 1900 ml Net 886.28 ml Exam: GEN: Awake, alert and oriented x3. [...] cm depth Right ankle Right lateral ankle Diagnostic Data: Complete Blood Count: Recent Labs [...] IRon Monitor labs Nutrition status: morbid obesity Demand Generation Manager consult initiated Hospital Prophylaxis: DVT: Heparin Stress Ulcer: na Disposition: Shared decision making: All test results, treatment options and disposition options were discussed with the patient today Social determinants of health that may impact management: none Code status: Full Code Disposition: Discharge plan is home [facility] Advanced Care Planning documentation: [x] I have confirmed that the patient's Advance Care Plan is present, Code Status is documented, orsurrogate decision maker is listed in the patient's [...] the patient's medical record. [DOES NOT SATISFY [facility] PERFORMANCE] Shelly Mondragon APRN - COMBINATION MACHINE TOOL SETTER , COMMUNITY FACILITATOR, THERAPIST SPEECH-C Hospitalist Medicine 06/24/2022, 7:34 AM Blood Transfusion Consent I have discussed with the Patient and/or Medical POA the rationale for blood component transfusion;its benefits in treating or preventing fatigue, organ damage, or ; and its risk which includesmild transfusion reactions, rare risk of blood borne infection, or more serious but rare reactions.I have discussed the alternatives to transfusion, including the risk and consequences of not receiving transfusion. The paietn and/ or Medical POA had an opportunity to ask questions and had agreed to proceed with transfusion of blood components. Shelly Mondragon APRN-COMBINATION MACHINE TOOL SETTER Associated attestation - Matias Garcia MD - 06/24/2022 9:40 PM EDT Images from the original note were not included. [address], [place], [place], [address] Attestation Patient: Ganga Stinson Date of Admission: 06/22/2022 4:21 PM Hospital Day # 2 Date of Evaluation: 06/24/2022 I personally evaluated and examined the patient [id number] in conjunction with the PA/THERAPIST SPEECH and agree with the management and dispostition of the patient. Please see the PA/THERAPIST SPEECH's note for full details.My kohli findings are: SUBJECTIVE: Patient seen for [...] ml Output 2675 ml Net 322.28 ml Exam: GEN: Awake, alert and oriented x3. [...] with the plan as outlined in the THERAPIST SPEECH/PA's note Disposition: Discharge plan is pending, GI, Cardiology, Urology consultations, Transfuse if pRBC <7, wound care to the affected area and monitor electrolytes. Please note that this chart was generated using voice recognition [employer] dictation software. Although every effort was made to ensure the accuracy of this automated commercial credit lead, some errors in commercial credit lead may have occurred. Matias Garcia MD 06/24/2022 9:39 PM * Geneva Samayoa RN - 06/24/2022 2:46 AM EDT Spoke with Dr. Garcia and informed him of critical lab levels. No new orders. * Geneva Samayoa RN - 06/24/2022 2:15 AM EDT Bulb Grower at bedside at this time to perform second shift assessment. Patient is lying in bed at this time. Vital signs taken and assessment completed at this time. Patient is alert and oriented and hasno complaints of pain at this time. Patient denies any further needs at this time. Call light within reach, care ongoing. * Geneva Samayoa RN - 06/23/2022 10:00 PM EDT Wound care completed at this time and patient transferred over to [facility]. * Geneva Samayoa RN - 06/23/2022 9:00 PM EDT Bulb Grower at bedside at this time to perform initial shift assessment. Patient is lying in bed at thistime. Vital signs taken and assessment completed at this time. Patient is alert and oriented and has no complaints of pain at this time. Patient denies any further needs at this time. Call light within reach, care ongoing. * Eloise Lopez PTA - 06/23/2022 4:35 PM EDT Physical Therapy Facility/Department: [facility] Daily Treatment Note NAME: [...] R LE. Pt can achieve minimal AROM inLLE LAQ with AAROM for increased ROM. Pt [...] training;Transfer training;Endurance training;Home exercise program;Therapeutic activities;Safety education &training;Patient/Caregiver education & training Restrictions Restrictions/Precautions Restrictions/Precautions: General Precautions, Fall Risk, Contact Precautions Position Activity Restriction Other position/activity restrictions: Pt is paraplegic and has no functional movement in oj LEs toassist with transfers. Subjective Subjective Subjective: Pt sitting [...] Setup;Assist X2;Additional time;Moderate assistance;Other (comment) (squat pivot fromchair to bed) Gait Training Gait Training: No Neuromuscular Education Neuromuscular Education: No PT Exercises Exercise Treatment: Seated BLE HS stretch 3x 30 sec holds, pt lacks full knee extension in RLE. Seated BLE exercises PROM in BLE hip abd/add, and LAQ's in R LE. Pt can achieve minimal AROM in LLE LAQwith AAROM for increased ROM. Safety Devices Type of Devices: All fall risk precautions in place;Bed alarm in place;Call light within reach;Leftin bed;Nurse notified;Gait belt Goals Short Term Goals [...] patient on weight shifting every 25 minutes sideto side when sitting in w/c to prevent further sores, pt return demonstrated ability in doing so. Education Method: Verbal Barriers to Learning: None Education Outcome: Verbalized understanding;Demonstrated understanding Therapy Time Individual Concurrent Group Co-treatment Time In 1325 Time Out 1403 Minutes 38 Eloise Lopez PTA * LAURENT Khoury - 06/23/2022 4:31 PM EDT Occupational Therapy Facility/Department: [facility] Daily Treatment Note NAME: [...] has no functional movement in oj LEs toassist with transfers. Subjective Subjective Subjective: Pt sitting [...] Setup;Assist X2;Additional time;Moderate assistance;Other (comment) (squat pivot fromchair to bed) Gait Training Gait Training: No [...] tasks. Pt required RBs as needed secondary tofatigue. Safety Devices Type of Devices: All fall [...] BUE ther ex to increase strength for functionaltransfers. Short Term Goal 2: Pt. will complete transfer to bedside commode with SBA and G safety to increase (I) with toileting tasks. Short Term Goal 3: Pt. will complete all grooming and UB ADL's with (I) after setup for safe returnhome. Short Term Goal 4: Pt. will complete toileting and LB ADL's with SBA to increase (I) with ADL routine. Therapy Time Individual Concurrent Group Co-treatment Time In 1325 Time Out 1403 Minutes 38 LEIGH Khoury/Cristina * Alix Quezada - 06/23/2022 2:16 PM EDT New foam dressing placed on patients coccyx after having a BM. * Sarah Hare PT - 06/23/2022 2:08 PM EDT Physical Therapy Facility/Department: [facility] Physical Therapy Initial Assessment [...] skin relief and strengthening. Pt is also generallyweak. Progress patient, as tolerated. Treatment Diagnosis: General [...] has no functional movement in oj LEs toassist with transfers. Subjective General Chart Reviewed: Yes Patient assessed for rehabilitation services?: Yes Additional Pertinent Hx: Paraplegic, wounds Diagnosis: Hyperkalemia with general weakness Follows Commands: Within Functional Limits Subjective Subjective: Per patient, he is normally independent. He did find that following his COVID positive,he states he has not felt he's returned [...] Ambulation Assistance: Non-ambulatory Transfer Assistance: Independent Active Tie Loader: No Additional Comments: Pt. with hx of [...] 67.36 (06/23/22 1409) Mobility Inpatient without Stair [facility] G-Code Modifier : CL (06/23/221408) Goals Short [...] 0958 Minutes 24 Sarah Hare, PT, DPT * Rae Zamudio, OT - 06/23/2022 11:26 AM EDT Occupational Therapy Facility/Department: [facility] Occupational Therapy Initial Assessment [...] mobility ;Decreased ADL status;Decreased strength;Decreased endurance;Decreased balance;Decreased high- level IADLs Treatment Diagnosis: Generalized Weakness Prognosis: Good [...] Ambulation Assistance: Non-ambulatory Transfer Assistance: Independent Active Tie Loader: No Additional Comments: Pt. with hx of [...] BUE ther ex to increase strength for functionaltransfers. Short Term Goal 2: Pt. will complete transfer to bedside commode with SBA and G safety to increase (I) with toileting tasks. Short Term Goal 3: Pt. will complete all grooming and UB ADL's with (I) after setup for safe returnhome. Short Term Goal 4: Pt. will complete toileting and LB ADL's with SBA to increase (I) with ADL routine. Therapy Time Individual Concurrent Group Co-treatment Time In 0942 Time Out 0958 Minutes 16 Rae Zamudio OT * Anya Christensen RD, LD - 06/23/2022 7:30 AM EDT Comprehensive Nutrition Assessment Type and Reason for [...] to Severe Extremities (+ 2 pitting BLE) Primary Mill Roller Strength: Not Performed Nutrition Assessment: Altered nutrition [...] Anthropometric Measures: Height: 5' 11 (180.3 cm) [place] Body Weight (IBW): 172 lbs (78 kg) [...] Used for Energy Requirements: Current Energy (kcal/day): 5189-0680 (20-23/kg) Weight Used for Protein Requirements: [place] Protein (g/day): 109-133g (1.4-1.7g/kg) Method Used for [...] Continue Current Diet, Mineral Supplement, Vitamin Supplement, StartOral Nutrition Supplement Nutrition Education/Counseling: Education declined Coordination [...] Nutrition Supplement ANYA CHRISTENSEN RD, LD Contact: [phone] * Panchito Crockett RN - 06/23/2022 1:00 AM EDT Bulb Grower at bedside for reassessment-see flow sheet for details. Patient remains alert and oriented x4-calm and cooperative. Patient continues to deny pain and discomfort. Incontinence and stewart care provided. Denying any additional needs, call light placed within reach, bed in lowest position and alarm engaged to promote patient safety. Will continue to monitor. * Panchito Crockett RN - 06/23/2022 12:00 AM EDT Bulb Grower attempted to place rowe catheter at this time- unable to advance 16 FR catheter. Rn Software Applications Developer notified and will attempt- will continue to monitor. Patient reports no pain or discomfort. * Panchito Crockett RN - 06/22/2022 11:12 PM EDT Bulb Grower phoned Dr. Garcia at this informing physician of incontinence and sacral wound- order received to insert rowe catheter for skin integrity purposes. See orders for details. * Panchito Crockett RN - 06/22/2022 8:19 PM EDT Patient admitted to [facility] at this time. Patient is alert and oriented x4- calm and cooperative with assessment. Lung bates are clear bilaterally with no increased work of breath noted. Pressure woundnoted on sacrum and RLE. Pillow support placed to off load weight. Bowel sounds active x4- abdomen soft to touch and nontender. Patient incontinent of urine at this time- brief changed and stewart care performed. Denying any additional needs, call light placed in reach, bed in lowest position and alarm engaged to promote patient safety. Will continue to monitor. [facility] [employer] Phone: 1(115) 166-337203-31-2023 Hospital Discharge instructions* Discharge Instructions* Fabby Felder RN - 06/26/2022 9:20 AM [...] removal process; these clips are metal and caninterfere with MRI procedures; the clips will pass [...] put into your stomach during the procedure. Thisshould pass in a few hours. May resume your regular diet. You will receive a letter or phone call with your test results in 2 weeks. If you have not receiveda letter or a phone call in 2 [...] or go to the nearest Emergency Room. * Discharge Instr - Activity* Fabby Souza RN - 06/26/2022 4:09 PM EDT As tolerated * Discharge Instr - Diet* Fabby Souza RN - 06/26/2022 4:09 PM [...] for the dietitian. Regular documented [facility] [employer] Work Phone: 1(840) 622-501603-07-2023 Progress note Author Cathy Brar [facility] June 02, 2022 12:14pm Note Date/Time June 02, 2022 12:1 4pm [facility] [address] [place] [address] Wound Center Provider Note Signed Patient: Ganga Stinson MR#: [id number] : 1960 Acct:[id number] Age/Sex: 61 / M Copies to: MD Fidel Whitmore MD~ HPI Date of Visit Date of Visit: Date of Service: 06/02/2022 Time of Service: 12:01 Narrative HPI: Patient is being followed for his chronic bilateral ischial, sacral and right foot ulcers. His is doing his dressing changes. Patient has been having some right hip pain and underwent a CT scan in [place] on 03/14/2022. This showed slight deepening of [...] Constitutional: Denies fever(s) Integumentary/Breasts Skin/Breast: Reports wounds [facility] Medical History (Updated 06/02/22 @ 12:13 by [...] Sacrum: Bed Appearance: Beefy Red, Bone Palpable, [place] and Yellow Percent of Wound Bed Granulated/Red: 90 Percent of Devitalized: 10 Length (cm): 3.5 Width (cm): 1.8 Depth (cm): 2 CM Sq: 6.300 Undermining Position: 360 Undermining Depth: 3 Surrounding Tissue Appearance: Ol[place] Surrounding Tissue Temp: Warm Drainage Amount: Large Drainage Description: Serosanguineous Drainage Odor: No Odor Left Ischium: Bed Appearance: Beefy Red, Bone Palpable, [place] and Yellow Percent of Wound Bed Granulated/Red: 90 Percent of Devitalized: 10 Length (cm): 7 Width (cm): 6 Depth (cm): 5.5 CM Sq: 42.000 Surrounding Tissue Appearance: [place] Surrounding Tissue Temp: Warm Drainage Amount: Large Drainage Description: Serosanguineous Drainage Odor: No Odor Right Ischium: Bed Appearance: Beefy Red, Bone Palpable, [place] and Yellow Percent of Wound Bed Granulated/Red: 90 Percent of Devitalized: 10 Length (cm): 0.7 Width (cm): 1 Depth (cm): 4 CM Sq: 0.700 Surrounding Tissue Appearance: [place] Surrounding Tissue Temp: Warm Drainage Amount: Moderate Drainage Description: Serosanguineous Drainage Odor: No Odor Left Ankle: Bed Appearance: Brown, Olancha and Yellow Percent of Wound Bed Granulated/Red: 5 Percent of Devitalized: 95 Length (cm): 3.5 Width (cm): 2.5 Depth (cm): 0.1 CM Sq: 8.750 Surrounding Tissue Appearance: [place] Surrounding Tissue Temp: Warm Drainage Amount: Moderate Drainage Description: Serosanguineous Drainage Odor: No Odor Medial Ankle: Bed Appearance: Brown, Olancha and Yellow Percent of Wound Bed Granulated/Red: 50 Percent of Devitalized: 50 Length (cm): 3.5 Width (cm): 4 Depth (cm): 0.1 CM Sq: 14.000 Surrounding Tissue Appearance: Olancha Surrounding Tissue Temp: Warm Drainage Amount: Moderate Drainage Description: Serosanguineous Drainage Odor: No Odor Medial Foot: Bed Appearance: Black Dry, Brown, Olancha and Hardware Percent of Wound Bed Granulated/Red: 5 Percent of Devitalized: 95 Length (cm): 2 Width (cm): 1.2 Depth (cm): 0.1 CM Sq: 2.400 Surrounding Tissue Appearance: Olancha Surrounding Tissue Temp: Warm Drainage Amount: Moderate [...] Diabetes mellitus type: type 2 Diabetes mellitus ferry terminal agent insulin use:with detention use Diabetes mellitus complication status: with skin complications Diabetes mellitus complication detail: with other skin ulcer Qualified Code(s): E11.622 - Type 2 diabetes mellitus with other skin ulcer; Z79.4 - long term care phlebotomist (current) use of insulin Code(s): E11.9 - [...] signed by MD Cathy Brar> 06/02/[address] [facility] Work Phone: 1(313) 552-467412-06-2022 Progress note Author Cathy Brar [facility] March 03, 2022 12:06pm Note Date/Time March 03, 2022 1 2:06pm [facility] [address] [place] [address] Wound Center Provider Note Signed Patient: Ganga Stinson MR#: [id number] : 1960 Acct:[id number] Age/Sex: 61 / M Copies to: MD Fidel hWitmore MD~ HPI Date of Visit Date of [...] U-100 Insulin) 50 units subcut BID DM 09/11/17 [History Confirmed 01/27/22] lisinopril 10 mg tablet [...] Ischium: Bed Appearance: Beefy Red, Bone Palpable, Olancha and Yellow Percent of Wound Bed Granulated/Red: [...] Bed Appearance: Beefy Red, Bone Palpable, Devitalized, Ol[place], Yellow and Rolled Edges Percent of Wound Bed Granulated/Red: 50 Percent of Devitalized: 50 Length (cm): 0.7 Width (cm): 0.8 Depth (cm): 4.0 CM Sq: 0.560 Undermining Position: 0 Undermining Depth: 0 Surrounding Tissue Appearance: Macerated and Rolled Edges Surrounding Tissue Temp: Warm Drainage Amount: Moderate Drainage Description: Serosanguineous Drainage Odor: No Odor Lidocaine Applied Topically: 2% Jelly Right Buttock: Bed Appearance: Devitalized, Ol[place] and Yellow Percent of Wound Bed Granulated/Red: 100 Percent of Devitalized: 0 Length (cm): 0 Width (cm): 0 Depth (cm): 0 CM Sq: 0.000 Surrounding Tissue Appearance: Hyperpigmented Surrounding Tissue Temp: Warm Drainage Amount: None Drainage Description: Serosanguineous Drainage Odor: No Odor Lidocaine Applied Topically: 2% Jelly Right Lower Medial Leg: Bed Appearance: [place] and Yellow Percent of Wound Bed Granulated/Red: [...] Diabetes mellitus type: type 2 Diabetes mellitus ferry terminal agent insulin use:with ferry terminal agent use Diabetes mellitus complication status: with skin complications Diabetes mellitus complication detail: with other skin ulcer Qualified Code(s): E11.622 - Type 2 diabetes mellitus with other skin ulcer; Z79.4 - assisted (current) use of insulin Code(s): E11.9 - [...] signed by MD Cathy Brar> 03/03/[address] [facility] Work Phone: 1(586) 102-960712-02-2022 NotePROCEDURE: XR HIP RT 2 3V W [...] Electronically authenticated by: KHADAR MEDINA Date: 2022-02-27 07:17[facility]11-01-2022 Progress note Author Cathy Brar [facility] January 27, 2022 12:11pm Note Date/Time January 27, 2022 1 2:11pm [facility] [address] [place], [place] [address] [facility] Provider Note Signed Patient: Ganga Stinson MR#: [id number] : 1960 Acct:[id number] Age/Sex: 61 / M Copies to: MD [...] 360 Undermining Depth: 3.5 Surrounding Tissue Appearance: Olancha and Rolled Edges Surrounding Tissue Temp: Warm Drainage Amount: Large Drainage Description: Serosanguineous Drainage Odor: No Odor Lidocaine Applied Topically: 2% Jelly Right Heel: Bed Appearance: Beefy Red, Olancha and Yellow Percent of Wound Bed Granulated/Red: 50 Percent of Devitalized: 50 Length (cm): 1.0 Width (cm): 1.4 Depth (cm): 0.1 CM Sq: 1.400 Surrounding Tissue Appearance: Peeling and Dryness Surrounding Tissue Temp: Warm Drainage Amount: Small Drainage Description: Serosanguineous Drainage Odor: No Odor Lidocaine Applied Topically: 2% Jelly Right Ischium: Bed Appearance: Beefy Red, Bone Palpable, Olancha and Yellow Percent of Wound Bed Granulated/Red: [...] Bed Appearance: Beefy Red, Bone Palpable, Devitalized, Olancha, Yellow and Rolled Edges Percent of Wound Bed Granulated/Red: 50 Percent of Devitalized: 50 Length (cm): 1.5 Width (cm): 1.0 Depth (cm): 4.0 CM Sq: 1.500 Undermining Position: 10-3:00 Undermining Depth: 3.5 Surrounding Tissue Appearance: Macerated and Rolled Edges Surrounding Tissue Temp: Warm Drainage Amount: Moderate Drainage Description: Serosanguineous Drainage Odor: No Odor Lidocaine Applied Topically: 2% Jelly Right Buttock: Bed Appearance: Devitalized, Olancha and Yellow Percent of Wound Bed Granulated/Red: 100 Percent of Devitalized: 0 Length (cm): 0 Width (cm): 0 Depth (cm): 0 CM Sq: 0.000 Surrounding Tissue Appearance: Olancha Surrounding Tissue Temp: Warm Drainage Amount: None Drainage Description: Serosanguineous Drainage Odor: No Odor Lidocaine Applied Topically: 2% Jelly Right Lower Medial Leg: Bed Appearance: Olancha and Yellow Percent of Wound Bed Granulated/Red: [...] Diabetes mellitus type: type 2 Diabetes mellitus detention insulin use:with detention use Diabetes mellitus complication status: with skin complications Diabetes mellitus complication detail: with other skin ulcer Qualified Code(s): E11.622 - Type 2 diabetes mellitus with other skin ulcer; Z79.4 - long term care phlebotomist (current) use of insulin Code(s): E11.9 - [...] signed by MD Cathy Brar> 01/27/22 1211 [facility] Work Phone: [phone] Progress note Author Cathy Brar [facility] December 23, 2021 12:32pm Note Date/Time December 23, 2021 12:32pm [facility] EN[facility] [address] [place] [address] Wound Center Provider Note Signed Patient: Ganga Stinson MR#: [id number] : 1960 Acct:[id number] Age/Sex: 61 / M Copies to: MD Fidel Whitmore MD~ HPI Date of Visit Date of Visit: Date of Service: 12/23/2021 Time of Service: 12:27 Narrative HPI: Patient being followed for his [...] Bed Appearance: Beefy Red, Bone Palpable, Devitalized, Olancha and Yellow Percent of Wound Bed Granulated/Red: 95 Percent of Devitalized: 5 Length (cm): 3.2 Width (cm): 2 Depth (cm): 2.5 CM Sq: 6.400 Undermining Position: 10-4:00 Undermining Depth: 5 Surrounding Tissue Appearance: Olancha and Macerated Surrounding Tissue Temp: Warm Drainage Amount: Large Drainage Description: Serosanguineous Drainage Odor: No Odor Lidocaine Applied Topically: 2% Jelly Right Heel: Bed Appearance: Beefy Red, Devitalized, Epithelial Tissue or Bridge, Olancha and Yellow Percent of Wound Bed Granulated/Red: 90 Percent of Devitalized: 10 Length (cm): 3 Width (cm): 8 Depth (cm): 0.1 CM Sq: 24.000 Surrounding Tissue Appearance: Peeling and Dryness Surrounding Tissue Temp: Warm Drainage Amount: Large Drainage Description: Serosanguineous Drainage Odor: No Odor Lidocaine Applied Topically: 2% Jelly Right Ischium: Bed Appearance: Beefy Red, Bone Palpable, Devitalized, Epithelial Tissue or Bridge, Olancha and Yellow Percent of Wound Bed Granulated/Red: 95 Percent of Devitalized: 5 Length (cm): 5 Width (cm): 5 Depth (cm): 5 CM Sq: 25.000 Undermining Position: 12-6:00 Undermining Depth: 1 Surrounding Tissue Appearance: Macerated Surrounding Tissue Temp: Warm Drainage Amount: Large Drainage Description: Serosanguineous Drainage Odor: No Odor Lidocaine Applied Topically: 2% Jelly Left Ischium: Bed Appearance: Beefy Red, Bone Palpable, Devitalized, Olancha and Yellow Percent of Wound Bed Granulated/Red: 95 Percent of Devitalized: 5 Length (cm): 1.6 Width (cm): 1.6 Depth (cm): 3.5 CM Sq: 2.560 Undermining Position: 10-3:00 Undermining Depth: 3.5 Surrounding Tissue Appearance: Macerated Surrounding Tissue Temp: Warm Drainage Amount: Moderate Drainage Description: Serosanguineous Drainage Odor: No Odor Lidocaine Applied Topically: 2% Jelly Right Buttock: Bed Appearance: Devitalized, Olancha and Yellow Percent of Wound Bed Granulated/Red: 95 Percent of Devitalized: 5 Length (cm): 1.5 Width (cm): 0.5 Depth (cm): 0.1 CM Sq: 0.750 Surrounding Tissue Appearance: Olancha and Callous Surrounding Tissue Temp: Warm Drainage Amount: Small Drainage Description: Serosanguineous Drainage Odor: No Odor Lidocaine Applied Topically: 2% Jelly Right Lower Lateral Leg: Bed Appearance: Beefy Red, Devitalized, Olancha and Yellow Percent of Wound Bed Granulated/Red: 10 Percent of Devitalized: 90 Length (cm): 0 Width (cm): 0 Depth (cm): 0 CM Sq: 0.000 Surrounding Tissue Appearance: Hyperpigmented Surrounding Tissue Temp: Warm Drainage Amount: None Drainage Description: Serosanguineous Drainage Odor: No Odor Lidocaine Applied Topically: 2% Jelly Right Lower Medial Leg: Bed Appearance: Devitalized, Epithelial Tissue or Bridge, Olancha and Yellow Percent of Wound Bed Granulated/Red: [...] Diabetes mellitus type: type 2 Diabetes mellitus detention insulin use:with detention use Diabetes mellitus complication status: with skin complications Diabetes mellitus complication detail: with other skin ulcer Qualified Code(s): E11.622 - Type 2 diabetes mellitus with other skin ulcer; Z79.4 - assisted (current) use of insulin Code(s): E11.9 - [...] signed by MD Cathy Brar> 12/23/21 1232 [facility] Work Phone: [phone] Progress note Author Cathy Brar [facility] November 18, 2021 11:55am Note Date/Time November 18, 2021 11 :55am [facility] [address] [place] [address] Wound Center Provider Note Signed Patient: Ganga Stinson MR#: [id number] : 1960 Acct:[id number] Age/Sex: 61 / M Copies to: MD [...] Bed Appearance: Beefy Red, Bone Palpable, Devitalized, Olancha and Yellow Percent of Wound Bed Granulated/Red: 75 Percent of Devitalized: 25 Length (cm): 3.5 Width (cm): 2.0 Depth (cm): 2.5 CM Sq: 7.000 Undermining Position: 360 (deepest at 3) Undermining Depth: 3.5 Surrounding Tissue Appearance: Hyperpigmented Surrounding Tissue Temp: Warm Drainage Amount: Large Drainage Description: Serosanguineous Drainage Odor: No Odor Lidocaine Applied Topically: 2% Jelly Right Heel: Bed Appearance: Devitalized, Olancha and Yellow Percent of Wound Bed Granulated/Red: 1 Percent of Devitalized: 99 Length (cm): 1.6 Width (cm): 2.3 Depth (cm): 0.1 CM Sq: 3.680 Surrounding Tissue Appearance: Hyperpigmented Surrounding Tissue Temp: Warm Drainage Amount: Large Drainage Description: Serosanguineous Drainage Odor: No Odor Lidocaine Applied Topically: 2% Jelly Right Ischium: Bed Appearance: Beefy Red, Bone Palpable, Devitalized, Epithelial Tissue or Bridge, Olancha and Yellow Percent of Wound Bed Granulated/Red: [...] Bed Appearance: Beefy Red, Bone Palpable, Devitalized, Olancha and Yellow Percent of Wound Bed Granulated/Red: 90 Percent of Devitalized: 10 Length (cm): 2.0 Width (cm): 2.0 Depth (cm): 3.5 CM Sq: 4.000 Undermining Position: 9-11:00 Undermining Depth: 4.0 Surrounding Tissue Appearance: Hyperpigmented Surrounding Tissue Temp: Warm Drainage Amount: Moderate Drainage Description: Serosanguineous Drainage Odor: No Odor Lidocaine Applied Topically: 2% Jelly Right Buttock: Bed Appearance: Beefy Red, Devitalized, Olancha and Yellow Percent of Wound Bed Granulated/Red: 95 Percent of Devitalized: 5 Length (cm): 2.4 Width (cm): 1.0 Depth (cm): 0.1 CM Sq: 2.400 Surrounding Tissue Appearance: Hyperpigmented Surrounding Tissue Temp: Warm Drainage Amount: Moderate Drainage Description: Serosanguineous Drainage Odor: No Odor Lidocaine Applied Topically: 2% Jelly Right Lower Lateral Leg: Bed Appearance: Beefy Red, Devitalized, Olancha and Yellow Percent of Wound Bed Granulated/Red: 10 Percent of Devitalized: 90 Length (cm): 1.3 Width (cm): 1.4 Depth (cm): 0.1 CM Sq: 1.820 Surrounding Tissue Appearance: Hyperpigmented Surrounding Tissue Temp: Warm Drainage Amount: Moderate Drainage Description: Serosanguineous Drainage Odor: No Odor Lidocaine Applied Topically: 2% Jelly Right Lower Medial Leg: Bed Appearance: Black Dry, Devitalized, Epithelial Tissue or Bridge, Olancha and Yellow Percent of Wound Bed Granulated/Red: [...] Diabetes mellitus type: type 2 Diabetes mellitus ferry terminal agent insulin use:with ferry terminal agent use Diabetes mellitus complication status: with skin complications Diabetes mellitus complication detail: with other skin ulcer Qualified Code(s): E11.622 - Type 2 diabetes mellitus with other skin ulcer; Z79.4 - long term care phlebotomist (current) use of insulin Code(s): E11.9 - [...] <Electronically signed by MD Cathy Brar> 11/18/21 1155 [facility] Work Phone: [phone]) 949-715407-26-2022 Progress note Author Cathy Brar [facility] October 21, 2021 11:44am Note Date/Time October 21, 2021 11:4 4am [facility] [address] [place] [address] Wound Center Provider Note Signed Patient: Ganga Stinson MR#: [id number] : 1960 Acct:[id number] Age/Sex: 61 / M Copies to: MD [...] Bed Appearance: Beefy Red, Bone Palpable, Devitalized, Olancha and Yellow Percent of Wound Bed Granulated/Red: 75 Percent of Devitalized: 25 Length (cm): 4.2 Width (cm): 3.0 Depth (cm): 3.0 CM Sq: 12.600 Undermining Position: 360 (deepest at 3) Undermining Depth: 3.5 Surrounding Tissue Appearance: Hyperpigmented Surrounding Tissue Temp: Warm Drainage Amount: Large Drainage Description: Serosanguineous Drainage Odor: No Odor Lidocaine Applied Topically: 2% Jelly Right Heel: Bed Appearance: Devitalized, Olancha and Yellow Percent of Wound Bed Granulated/Red: 50 Percent of Devitalized: 50 Length (cm): 2.3 Width (cm): 3.2 Depth (cm): 0.1 CM Sq: 7.360 Surrounding Tissue Appearance: Hyperpigmented Surrounding Tissue Temp: Warm Drainage Amount: Large Drainage Description: Serosanguineous Drainage Odor: No Odor Lidocaine Applied Topically: 2% Jelly Right Ischium: Bed Appearance: Beefy Red, Bone Palpable, Devitalized, Epithelial Tissue or Bridge, Olancha and Yellow Percent of Wound Bed Granulated/Red: [...] Bed Appearance: Beefy Red, Bone Palpable, Devitalized, Olancha and Yellow Percent of Wound Bed Granulated/Red: 90 Percent of Devitalized: 10 Length (cm): 3.0 Width (cm): 1.6 Depth (cm): 4.5 CM Sq: 4.800 Undermining Position: 9-11:00 Undermining Depth: 1.0 Surrounding Tissue Appearance: Hyperpigmented Surrounding Tissue Temp: Warm Drainage Amount: Moderate Drainage Description: Serosanguineous Drainage Odor: No Odor Lidocaine Applied Topically: 2% Jelly Right Buttock: Bed Appearance: Beefy Red, Devitalized, Olancha and Yellow Percent of Wound Bed Granulated/Red: 80 Percent of Devitalized: 20 Length (cm): 2.2 Width (cm): 1.1 Depth (cm): 0.1 CM Sq: 2.420 Surrounding Tissue Appearance: Hyperpigmented Surrounding Tissue Temp: Warm Drainage Amount: Moderate Drainage Description: Serosanguineous Drainage Odor: No Odor Lidocaine Applied Topically: 2% Jelly Right Lower Lateral Leg: Bed Appearance: Beefy Red, Devitalized, Olancha and Yellow Percent of Wound Bed Granulated/Red: 10 Percent of Devitalized: 90 Length (cm): 1.3 Width (cm): 1.4 Depth (cm): 0.1 CM Sq: 1.820 Surrounding Tissue Appearance: Hyperpigmented Surrounding Tissue Temp: Warm Drainage Amount: Moderate Drainage Description: Serosanguineous Drainage Odor: No Odor Lidocaine Applied Topically: 2% Jelly Right Lower Medial Leg: Bed Appearance: Black Dry, Devitalized, Olancha and Yellow Percent of Wound Bed Granulated/Red: 80 Percent of Devitalized: 20 Length (cm): 1.6 Width (cm): 2.5 Depth (cm): 0.1 CM Sq: 4.000 Surrounding Tissue Appearance: Hyperpigmented Surrounding Tissue Temp: Warm Drainage Amount: Moderate Drainage Description: Serosanguineous Drainage Odor: No Odor Lidocaine Applied Topically: 2% Jelly Right Foot: Bed Appearance: Beefy Red, Devitalized, Epithelial Tissue or Bridge, Olancha and Yellow Percent of Wound Bed Granulated/Red: [...] Diabetes mellitus type: type 2 Diabetes mellitus ferry terminal agent insulin use:with detention use Diabetes mellitus complication status: with skin complications Diabetes mellitus complication detail: with other skin ulcer Qualified Code(s): E11.622 - Type 2 diabetes mellitus with other skin ulcer; Z79.4 - assisted (current) use of insulin Code(s): E11.9 - [...] by MD Cathy Brar> 10/21/[address] [facility] Work Phone: [phone]) [phone] Progress note Author Cathy Brar [facility] September 16, 2021 11:55am Note Date/Time September 16, 2021 11:5 1am [facility] [address] [place] [address] Wound Center Provider Note Signed Patient: Ganga Stinson MR#: [id number] : 1960 Acct:[id number] Age/Sex: 61 / M Copies to: MD [...] Wound/Ulcer Sacrum: Bed Appearance: Bone Palpable, Devitalized, Olancha and Yellow Percent of Wound Bed Granulated/Red: [...] Heel: Bed Appearance: Black Moist, Brown, Devitalized, Olancha and Yellow Percent of Wound Bed Granulated/Red: 95 Percent of Devitalized: 5 Length (cm): 3.4 Width (cm): 5.1 Depth (cm): 0.1 CM Sq: 17.340 Surrounding Tissue Appearance: Hyperpigmented Surrounding Tissue Temp: Warm Drainage Amount: Large Drainage Description: Serosanguineous Drainage Odor: No Odor Lidocaine Applied Topically: 2% Jelly Right Ischium: Bed Appearance: Beefy Red, Devitalized, Epithelial Tissue or Bridge, Olancha and Yellow Percent of Wound Bed Granulated/Red: 90 Percent of Devitalized: 10 Length (cm): 5.1 Width (cm): 5.5 Depth (cm): 4 CM Sq: 28.050 Undermining Position: 1-3:00 Undermining Depth: 1.5 Surrounding Tissue Appearance: Hyperpigmented Surrounding Tissue Temp: Warm Drainage Amount: Large Drainage Description: Serosanguineous Drainage Odor: No Odor Lidocaine Applied Topically: 2% Jelly Left Ischium: Bed Appearance: Beefy Red, Bone Palpable, Devitalized, Olancha and Yellow Percent of Wound Bed Granulated/Red: 90 Percent of Devitalized: 10 Length (cm): 3.9 Width (cm): 1.8 Depth (cm): 5 CM Sq: 7.020 Undermining Position: 9-11:00 Undermining Depth: 2.2 Surrounding Tissue Appearance: Hyperpigmented Surrounding Tissue Temp: Warm Drainage Amount: Moderate Drainage Description: Serosanguineous Drainage Odor: No Odor Lidocaine Applied Topically: 2% Jelly Right Buttock: Bed Appearance: Beefy Red, Devitalized, Olancha and Yellow Percent of Wound Bed Granulated/Red: 99 Percent of Devitalized: 1 Length (cm): 2.3 Width (cm): 0.9 Depth (cm): 0.2 CM Sq: 2.070 Surrounding Tissue Appearance: Hyperpigmented Surrounding Tissue Temp: Warm Drainage Amount: Moderate Drainage Description: Serosanguineous Drainage Odor: No Odor Lidocaine Applied Topically: 2% Jelly Right Lower Lateral Leg: Bed Appearance: Beefy Red, Devitalized, Olancha and Yellow Percent of Wound Bed Granulated/Red: 20 Percent of Devitalized: 80 Length (cm): 3.8 Width (cm): 2.3 Depth (cm): 0.1 CM Sq: 8.740 Surrounding Tissue Appearance: Hyperpigmented Surrounding Tissue Temp: Warm Drainage Amount: Moderate Drainage Description: Serosanguineous Drainage Odor: No Odor Lidocaine Applied Topically: 2% Jelly Right Lower Medial Leg: Bed Appearance: Black Dry, Devitalized, Olancha and Yellow Percent of Wound Bed Granulated/Red: 75 Percent of Devitalized: 25 Length (cm): 2.5 Width (cm): 2.7 Depth (cm): 0.2 CM Sq: 6.750 Surrounding Tissue Appearance: Hyperpigmented Surrounding Tissue Temp: Warm Drainage Amount: Moderate Drainage Description: Serosanguineous Drainage Odor: No Odor Lidocaine Applied Topically: 2% Jelly Right Foot: Bed Appearance: Beefy Red, Devitalized, Epithelial Tissue or Bridge, Olancha and Yellow Percent of Wound Bed Granulated/Red: [...] Diabetes mellitus type: type 2 Diabetes mellitus ferry terminal agent insulin use:with ferry terminal agent use Diabetes mellitus complication status: with skin complications Diabetes mellitus complication detail: with other skin ulcer Qualified Code(s): E11.622 - Type 2 diabetes mellitus with other skin ulcer; Z79.4 - assisted (current) use of insulin Code(s): E11.9 - [...] signed by MD Cathy Brar> 09/16/21 1155 [facility] Work Phone: [phone]) 227-483605-03-2022 Progress note Author Cathy Brar [facility] July 29, 2021 12:33pm Note Date/Time July 29, 2021 12:33p [facility] ENTER [address] [place] [address] Wound Center Provider Note Signed Patient: Ganga Stinson MR#: [id number] : 1960 Acct:[id number] Age/Sex: 61 / M Copies to: MD [...] down Wound/Ulcer Sacrum: Bed Appearance: Bone Palpable, Olancha and Yellow Percent of Wound Bed Granulated/Red: 50 Percent of Devitalized: 50 Length (cm): 2.6 Width (cm): 2.0 Depth (cm): 3.0 CM Sq: 5.200 Undermining Position: 9-4 (deepest at 4) Undermining Depth: 5.4 Surrounding Tissue Appearance: Hyperpigmented Surrounding Tissue Temp: Warm Drainage Amount: Large Drainage Description: Serosanguineous Drainage Odor: No Odor Lidocaine Applied Topically: 2% Jelly Right Heel: Bed Appearance: Black Moist, Brown, Olancha and Yellow Percent of Wound Bed Granulated/Red: 15 Percent of Devitalized: 85 Length (cm): 6.0 Width (cm): 9.0 Depth (cm): 0.5 CM Sq: 54.000 Surrounding Tissue Appearance: Hyperpigmented Surrounding Tissue Temp: Warm Drainage Amount: Large Drainage Description: Serosanguineous Drainage Odor: No Odor Lidocaine Applied Topically: 2% Jelly Right Ischium: Bed Appearance: Beefy Red, Epithelial Tissue or Bridge, Olancha and Yellow Percent of Wound Bed Granulated/Red: 50 Percent of Devitalized: 50 Length (cm): 9.3 Width (cm): 7.9 Depth (cm): 5.2 CM Sq: 73.470 Undermining Position: 360 (deepest at 7) Undermining Depth: 2.3 Surrounding Tissue Appearance: Hyperpigmented Surrounding Tissue Temp: Warm Drainage Amount: Large Drainage Description: Serosanguineous Drainage Odor: No Odor Lidocaine Applied Topically: 2% Jelly Left Ischium: Bed Appearance: Olancha and Yellow Percent of Wound Bed Granulated/Red: 50 Percent of Devitalized: 50 Length (cm): 1.7 Width (cm): 1.5 Depth (cm): 3.5 CM Sq: 2.550 Undermining Position: 3-8 Undermining Depth: 4.5 Surrounding Tissue Appearance: Hyperpigmented Surrounding Tissue Temp: Warm Drainage Amount: Moderate Drainage Description: Serosanguineous Drainage Odor: No Odor Lidocaine Applied Topically: 2% Jelly Right Buttock: Bed Appearance: Beefy Red, Olancha and Yellow Percent of Wound Bed Granulated/Red: 75 Percent of Devitalized: 25 Length (cm): 6.6 Width (cm): 2.0 Depth (cm): 0.1 CM Sq: 13.200 Surrounding Tissue Appearance: Hyperpigmented Surrounding Tissue Temp: Warm Drainage Amount: Moderate Drainage Description: Serosanguineous Drainage Odor: No Odor Lidocaine Applied Topically: 2% Jelly Right Lower Lateral Leg: Bed Appearance: Beefy Red, Olancha and Yellow Percent of Wound Bed Granulated/Red: 50 Percent of Devitalized: 50 Length (cm): 1.8 Width (cm): 1.5 Depth (cm): 0.1 CM Sq: 2.700 Surrounding Tissue Appearance: Hyperpigmented Surrounding Tissue Temp: Warm Drainage Amount: Moderate Drainage Description: Serosanguineous Drainage Odor: No Odor Lidocaine Applied Topically: 2% Jelly Right Lower Medial Leg: Bed Appearance: Black Dry, Olancha and Yellow Percent of Wound Bed Granulated/Red: [...] Diabetes mellitus type: type 2 Diabetes mellitus detention insulin use:with detention use Diabetes mellitus complication status: with skin complications Diabetes mellitus complication detail: with other skin ulcer Qualified Code(s): E11.622 - Type 2 diabetes mellitus with other skin ulcer; Z79.4 - assisted (current) use of insulin Code(s): E11.9 - [...] will attempt to obtain that note from cable maker in [place]. See Instructions for Orders See Instructions for Orders See Wound Discharge Instructions for Orders: Patient may require serial debridement to remove devitalized tissue and encourage granulation. Dictated By: Cathy Brra MD DD/ [id number] Signed By: <Electronically signed by MD Cathy Brar> 07/29/[address] [facility] Work Phone: Evaluation + Plan note No data available for this section [facility] evaluation note* Diagnosis Onset Date Resolution Status Right hip pain acute Stage IV pressure ulcer of sacral region acute Unstageable pressure ulcer of right heel acute Cauda equina spinal cord injury chronic Diabetes chronic Pressure ulcer of left hip, stage 3 resolved Pressure ulcer of right hip, stage [address] [facility] Work Phone: Evaluation note* Diagnosis Neurogenic bladder Neurogenic bladder, NOS [facility] [email or web address] note* Diagnosis Neurogenic bladder Neurogenic bladder, NOS [facility]: [email or web address] note* Diagnosis Hyperkalemia- Primary Hyperpotassemia Acute kidney [...] of neurogenic bladder [facility] Work [facility]: [email or web address] note* Diagnosis Acute kidney injury (HCC) Acute kidney failure, unspecified Iron deficiency anemia, unspecified iron deficiency anemia type documented in this encounter [facility] [employer] Work Phone: [email or web address] note* Diagnosis Onset Date Resolution Status Pressure injury of left ischium, stage 4 acute Pressure injury of right ischium, stage 4 acute Pressure ulcer of right foot, stage 2 acute Right hip pain acute 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 Work Phone: Evaluation note* Diagnosis Cauda equina syndrome (HCC) Cauda equina syndrome without mention of neurogenic bladder Neurogenic bladder Neurogenic bladder, NOS Urinary retention Retention of urine, unspecified Urinary incontinence without sensory awareness Incontinence without sensory awareness [facility] Diagnosis Cellulitis of left foot- Primary Ulcer of left ankle, with necrosis of bone (HCC) ([facility]) Diabetes mellitus due to underlying condition with diabetic polyneuropathy, unspecified whether detention insulin use ([facility]/HCC) Acute complete paraplegia ([facility]/HCC) Acute osteomyelitis of left fibula ([facility]/HCC) Foot ulcer, right, with fat layer exposed ([facility]) Venous insufficiency Unspecified venous (peripheral) insufficiency documented in this encounter [facility]* Diagnosis Abscess of toe, right- Primary documented in this encounter 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 Moffett -If you having excessive or persistent pain, swelling, bleeding, nausea, vomiting, or any other problems, you should first call your surgeon for advice. If you are unable to contact your surgeon, seek help from a hospital emergency room. -Follow carefully any verbal or written instructions your surgeon may have given you. SURGEON S WRITTEN INSTRUCTIONS -Keep bandage clean and dry and DO NOT REMOVE -Take antibiotic medications as indicated -Do not be alarmed if you notice slight bleeding on the bandage, this is normal. -Report any increase in swelling to Dr. Moffett immediately -Resume regular diet Call the office if you develop: -Persistent bleeding -Temperature above 100 degrees Fahrenheit. -Persistent vomiting -Calf pain or shortness of breath -Redness or pus at operative site FOLLOW UP Phone numbers: [facility] [phone] [facility] Work Phone: Progress note No data available for this section [facility] Summary Purpose Family History No Family History Records Found Relationship Condition Age at Onset Recorded Date/T alverto father Autoimmune disorder Unknown Not Specified Myocardial infarction Unknown Hypertension Unknown Relationship Condition Age at Onset Recorded Date/T alverto father Autoimmune disorder Unknown Not Specified Myocardial infarction Unknown Hypertension Unknown father Unknown Not Specified Hypertension Unknown Unknown Heart disease Unknown Advance Directives No Advanced Directives Records Found Advance Directive Response Recorded Date/ Time Advance [...] region Cauda equina spinal cord injury Diabetes Chief Complaint Open Wound Left Fibula Osteomyelitis, Diabetes, Ulcerative Reason for Visit [id number] Foot ulcer with fat layer exposed 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 Cauda equina spinal cord injury Pressure ulcer of left buttock, stage 3 Chief Complaint Open Wound Left Fibula Osteomyelitis, Diabetes, Ulcerative Unknown Reason for Visit [id number] Foot ulcer with fat layer exposed 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 Cauda equina spinal cord injury Pressure ulcer of left buttock, stage 3 Reason for Referral Specialty Diagnoses / Procedures Referred By Contmary t Referred To Contact Cardiology Diagnoses Neurogenic bladder Procedures EKG 12 Lead Angeles Nagy MD [address], [address] [place] [address] Referral ID Status Reason Start Date Expiration Date V isits Requested Visits Authorized [id number] Pending Review 06/22/2022 06/22/2023 1 1 Specialty Diagnoses / Procedures Referred By Farzaneh t Referred To Contact Radiology Diagnoses Cauda equina syndrome (HCC) Neurogenic bladder Urinary retention Urinary incontinence without sensory awareness Procedures US RENAL COMPLETE Ashlee Erwin, COMMUNITY FACILITATOR - COMBINATION MACHINE TOOL SETTER [address] [address] Referral ID Status Reason Start Date Expiration Date Visits Re quested Visits Authorized [id number] Open 09/18/2022 09/18/2023 1 1 Additional Source Comments (unrecognized sect ion and content) No Status Records FoundNo Status Records FoundNo Status Records FoundNo Status Records FoundNo Status Records FoundNo Status Records Found INFORMATION SOURCE (unrecogn ized section and content) DATE CREATED AUTHOR 09/21/2017 [facility] DATE CREATED AUTHOR AUTHOR'S ORGANIZ ATION 04/08/2022 [facility] DATE CREATED AUTHOR AUTHOR'S ORGANIZ ATION 09/27/2022 [facility] DATE CREATED AUTHOR AUTHOR'S ORGANIZ ATION 06/11/2023 [facility] EPIC DATE CREATED AUTHOR AUTHOR'S ORGANIZ ATION 07/15/2023 [facility] DATE CREATED AUTHOR AUTHOR'S ORGANIZ ATION 09/18/2023 [facility] Care Teams (unrecognized sec tion and content) Team Status: Active Member Role Status Dates Fidel Abbott MD Primary Care Provider Active Team Status: Inactive Member Role Status Dates Fidel Abbott MD Primary Care Provider Active Cathy Brar MD Attending Provider Active Operating Room Assistant Relationship Specialty Start Date End Date Fidel Abbott MD PCP - General 07/03/15 Operating Room Assistant Relationship Specialty Start Date End Date Fidel Abbott MD PCP - General 07/03/15 Operating Room Assistant Relationship Specialty Start Date End Date Fidel Abbott MD PCP - General 07/03/15 Operating Room Assistant Relationship Specialty Start Date End Date Fidel Abbott MD PCP - General 07/03/15 Operating Room Assistant Relationship Specialty Start Date End Date Fidel Abbott MD PCP - General 07/03/15 Operating Room Assistant Relationship Specialty Start Date End Date Fidel Abbott MD PCP - General Family Medicine 12/10/22 Fidel Abbott MD [address] [place] [phone] PCP - [employer] 03/29/23 Operating Room Assistant Relationship Specialty Start Date End Date Fidel Abbott MD PCP - General Family Medicine 12/10/22 Fidel Abbott MD [address] [place] [phone] PCP - [employer] 03/29/23 Operating Room Assistant Relationship Specialty Start Date End Date Fidel Abbott MD [address] [place] [phone] PCP - [employer] 03/29/23 Fidel Abbott MD [address] [place] [phone] PCP - General Family Medicine 05/12/23 Team Status: Inactive Member Role Status Dates Fidel Abbott MD Primary Care Provider Active S tart: May 04, 2023 End: May 04, 2023 Cathy Brar MD Attending Provider Active Sta rt: May 04, 2023 End: May 04, 2023 Team Status: Inactive Member Role Status Dates Fidel Abbott MD Primary Care Provider Active S tart: June 04, 2023 End: June 04, 2023 Jonathan Moffett DPM Attending Provider Active Start: June 04, 2023 End: June 04, 2023 Team Status: Inactive Member Role Status Dates Bubba Bahena DPM MS Attending Provider Active Start: July 08, 2023 End: July 08, 2023 Goals (unrecognized section and content) Goals may [...] Specialty Diagnoses / Procedures Referred By Farzaneh sy Referred To Contact Diagnoses Hyperkalemia Acute kidney injury (HCC) Matias Garcia MD [address] [place] [address] [facility] [id number] [place] [address] Referral ID Status Reason Start Date Expiration Date Visits Re quested Visits Authorized [id number] 1 1 Specialty Diagnoses / Procedures Referred By Farzaneh sy Referred To Contact Radiology Diagnoses Cauda equina syndrome (HCC) Neurogenic bladder Urinary retention Urinary incontinence without sensory awareness Procedures US RENAL COMPLETE Ashlee Erwin, COMMUNITY FACILITATOR - COMBINATION MACHINE TOOL SETTER [address] [place] [address] Referral ID Status Reason Start Date Expiration Date Visits Re quested Visits Authorized [id number] Open 09/18/2022 09/18/2023 1 1 Reason Comments [...] Orders)0900 (Automatically Held - Provider: Cammy Autohold)0959 ([facility] Unhold - Provider: Dragan Voss RN)1234 (Given - Provider: June Rocio) atenolol (TENORMIN) tablet 100 mg 100 mg, Oral, DAILY, First dose on Wed06/23/22 at 0900, Until Discontinued 0907 (Given - Provider: Heri Valdez RN) 0723 (Given - Provider: Heri Valdez RN) 0812 ([facility] Hold - Provider: Cammy Autohold - Reason: Unreviewed Transfer Orders)0900 (Automatically Held - Provider: Cammy Autohold)0959 ([facility] Unhold - Provider: Dragan Voss RN)1233 (Given - Provider: Juneleif) citalopram (CELEXA) tablet 40 mg 40 mg, Oral, DAILY, First dose on Wed06/23/22 at 0900, Until Discontinued 0907 (Given - Provider: Heri Valdez RN) 0723 (Given - Provider: Heri Valdez RN) 0812 ([facility] Hold - Provider: [facility] Autohold - Reason: Unreviewed Transfer Orders)0900 (Automatically Held - Provider: [facility] Autohold)0959 ([facility] Unhold - Provider: Dragan Voss RN)1235 (Given - Provider: June Rocio) clindamycin (CLEOCIN) 600 mg in dextrose [...] Heri Valdez RN)1703 (Stopped - Provider: Geneva Samayoa RN) 0021 (New Bag - Provider: Geneva Samayoa RN)0051 (Stopped - Provider: Geneva Samayoa RN)0825 (New Bag - Provider: Sylvia Chao)0922 (Stopped - Provider: Heri Valdez RN)1619 (New Bag - Provider: Heri Valdez RN)1715 (Stopped - Provider: Heri Valdez RN) 0101 (New Bag - Provider: Panchito Crockett RN)0131 (Stopped - Provider: Panchito Crockett RN)0812 ([facility] Hold - Provider: Cammy Autohold - Reason: Unreviewed Transfer Orders)0830 (Automatically Held - Provider: [facility] Autohold)0959 ([facility] Unhold - Provider: Dragan Voss RN)1245 (New Bag - Provider: Junegeoff)1320 (Stopped - Provider: Junegeoff)2045 (Due - Provider: Linda Ibrahim [facility]) fenofibrate (TRIGLIDE) tablet 160 mg 160 mg, Oral, DAILY, First dose on Wed06/23/22 at 0900, Until Discontinued, Substituted for Fenofibrate (Non-Formulary Dose). 0907 (Given - Provider: Heri Valdez RN) 0724 (Given - Provider: Heri Valdez RN) 0812 ([facility] Hold - Provider: Cammy Autohold - Reason: Unreviewed Transfer Orders)0900 (Automatically Held - Provider: Cammy Autohold)0959 ([facility] Unhold - Provider: Dragan Voss RN)1235 (Given - Provider: Linh Chan) gentamicin (GARAMYCIN) 250 mg in sterile water for irrigation 250 mL irrigation (COMPLETED) 250 mg, Irrigation, ONCE, On Karena 06/25/22 at 0830, For 1 dose 1234 (Given by Other Clinician - Provider: Heri Valdez RN - Comment: Dr. Min used solution bedside.) heparin (porcine) injection 5,000 Units 5,000 Units, SubCUTAneous, EVERY 8 HOURS SCHEDULED (3 times per day), First dose on Wed06/22/22 at 2200, Until Discontinued 09 (Not Given - Provider: Heri Valdez RN - Reason: Contraindicated)1512 (Held by provider - Provider: ESTELLE Katz CNP - Reason: Other)1600 (Automatically Held - Provider: ESTELLE Katz CNP) 0000 (Automatically Held - Provider: ESTELLE Katz CNP)0800 (Automatically Held - Provider: Shelly Mondragon APRN - DOLLY)1600 (Automatically Held - Provider: Shelly Mondragon APRN - DOLLY) 0000 (Automatically Held - Provider: ESTELLE Katz CNP)0800 (Automatically Held - Provider: Shelly Mondragon APRN - DOLLY)1600 (Automatically Held - Provider: Shelly Mondragon APRN - DOLLY) multivitamin 1 tablet 1 tablet, Oral, DAILY, First dose on Karena 06/25/22 at 0900, Until Discontinued 0724 (Given - Provider: Heri Valdez RN) 0812 (MAR Hold - Provider: Cammy Autohold - Reason: Unreviewed Transfer Orders)0900 (Automatically Held - Provider: Cammy Autohold)0959 ([facility] Unhold - Provider: Dragan Voss RN)1235 [...] Heri Valdez RN - Reason: IV Fluid Infusing)2021 (Not Given - Provider: Geneva Samayoa RN - Reason: IV Fluid Infusing) 0726 (Not Given - Provider: Heri Valdez RN - Reason: IV Fluid Infusing)2247 (Not Given - Provider: Panchito Crockett RN - Reason: IV Fluid Infusing) 0812 ([facility] Hold - Provider: Cammy Autohold - Reason: Unreviewed Transfer Orders)0900 (Automatically Held - Provider: Cammy Kinghold)0959 ([facility] Unhold - Provider: Dragan Voss RN)2100 (Due) [...] Autohold)0959 ([facility] Unhold - Provider: Dragan Voss RN) Continuous Medication Order 06/24/2022 06/25/2022 06/26/2022 0.9 % sodium chloride infusion IntraVENous, at 75 mL/hr, CONTINUOUS, Starting on Wed06/22/22 at 2045 0020 (New Bag - Provider: Geneva Samayoa RN) 0812 ([facility] Hold - Provider: Cammy Autohold - Reason: Unreviewed Transfer Orders)0959 ([facility] Unhold - Provider: Dragan Voss RN)1340 (New [...] less into rate field of order. 0812 ([facility] Hold - Pro vider: Cammy Autohold - Reason: Unreviewed Transfer Orders)0959 ([facility] Unhold - Provider: Dragan Voss RN) 0.9 % sodium chloride infusion IntraVENous, at 240 mL/hr, Administer over 10 Minutes, PRN, blood administration, Starting on Wed06/24/22 at 0733, For 1 dose, For use in priming line prior to transfusion (prime via gravity) and flush line post transfusion ONLY. Discontinue once line has been cleared of remaining blood product. 0812 ([facility] Hold - Pro vider: [facility] Autohold - Reason: Unreviewed Transfer Orders)0959 ([facility] Unhold - Provider: Dragan Voss RN) acetaminophen (TYLENOL) suppository 650 mg(Linked Group 1) 650 mg, Rectal, EVERY 6 HOURS PRN, Starting on Wed06/22/22 at 2018, Until Discontinued, Pain Mild (1-3), Fever, For temp greater than 100.4 F (38 C), Administer if oral route cannot be used. 0812 ([facility] Hold - Pro vider: [facility] Aut[employer] - Reason: Unreviewed Transfer Orders)0959 ([facility] Unhold - Provider: Dragan Voss RN) acetaminophen (TYLENOL) tablet 650 mg(Linked Group 1) 650 mg, Oral, EVERY 6 HOURS PRN, Starting on Wed06/22/22 at 2017, Until Discontinued, Pain Mild (1-3), Fever, For temp greater than 100.4 F (38 C), Maximum dose of acetaminophen is 4000 mg from all sources in 24 hours. 0812 ([facility] Hold - Pro vider: [facility] Aut[employer] - Reason: Unreviewed Transfer Orders)0959 ([facility] Unhold - Provider: Dragan Voss RN) ondansetron (ZOFRAN) injection 4 mg(Linked Group 2) 4 mg, IntraVENous, EVERY 6 HOURS PRN, Starting on Wed06/22/22 at 2017, Until Discontinued, Nausea, Vomiting, Administer if oral route cannot be used. 0812 ([facility] - Pro vider: [facility] Autohold - Reason: Unreviewed Transfer Orders)0959 ([facility] Unhold - Provider: Dragan Voss RN) ondansetron (ZOFRAN-ODT) disintegrating tablet 4 mg(Linked Group 2) 4 mg, Oral, EVERY 8 HOURS PRN, Starting on Wed06/22/22 at 2017, Until Discontinued, Nausea, Vomiting 0812 ([facility] - Pro vider: [facility] [employer] - Reason: Unreviewed Transfer Orders)0959 ([facility] Unhold - Provider: Dragan Voss RN) polyethylene glycol (GLYCOLAX) packet 17 g 17 g, Oral, DAILY PRN, Starting on Wed06/22/22 at 2017, Until Discontinued, Constipation, First line therapy for constipation 0812 ([facility] - Pro vider: [facility] [employer] - Reason: Unreviewed Transfer Orders)0959 ([facility] Unhold - Provider: Dragan Voss RN) sodium chloride flush 0.9 % injection 10 mL 10 mL, IntraVENous, PRN, Starting on Wed06/22/22 at 2017, Until Discontinued, Line Care, After every IV line use 0812 ([facility] - Pro vider: [facility] [employer] - Reason: Unreviewed Transfer Orders)0959 ([facility] Unhold - Provider: Dragan Voss RN) Linked [...] BE BASED ON THE PRIMARY CLINICAL RECORDS. [facility]. provides no warranty or guarantee of the accuracy or completeness of information in this document.
== END 2023-10-01 07:45 | disposition home or self-care (01) ==
LOC: PST 07:44
PROVIDERS: PCP Family Medicine; Visit Provider Urology
DX: Z01.818 Encounter for other preprocedural examination (principal); N35.919 Unspecified urethral stricture, male, unspecified site; N31.9 Neuromuscular dysfunction of bladder, unspecified

== ENCOUNTER 2023-10-19 15:57 | Outpatient (OUT) | payer BC, MEDICARE, SELFPAY | END 2023-10-19 15:58 | disposition home or self-care (01) | LOC: WC 15:57 | PROVIDERS: PCP Family Medicine; Visit Provider Podiatrist Foot & Ankle Surgery | DX: E11.621 Type 2 diabetes mellitus with foot ulcer (principal); 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 with other specified severity; E11.622 Type 2 diabetes mellitus with other skin ulcer; L97.818 Non-pressure chronic ulcer of other part of right lower leg with other specified severity; L97.318 Non-pressure chronic ulcer of right ankle with other specified severity; L97.412 Non-pressure chronic ulcer of right heel and midfoot with fat layer exposed; I87.311 Chronic venous hypertension (idiopathic) with ulcer of right lower extremity; L97.812 Non-pressure chronic ulcer of other part of right lower leg with fat layer exposed | CPT/HCPCS: 11042; 11045 ==

== ENCOUNTER 2023-10-26 07:17 | Outpatient (RCR) | payer BC, MEDICARE, SELFPAY ==
[2023-10-12 10:30] VITALS: BP 146/67; PULSE 59; TEMP 36.4; O2SAT 97
--- NOTE | 2023-10-12 10:52 | PC.NURSE ---
1030: Pt. to [facility] via w/c. Dropped off by [employer]. Requests to remain in w/c. VSS. IV initiated to left ac on first attempt. Blood drawn from IV for ordered labs. Pt. tolerated without c/o. Pt. with wound vac in place on left leg. Pt. without c/o or needs. Drinking bottled water from home.
[2023-10-12 10:59] LABS: Basophils Percent Auto 0.2 % (0.2-2.0); Eosinophils Absolute Auto 0.5 10^3/uL (0.0-0.7); Eosinophils Percent Auto 4.3 % (0.9-7.0); Immature Granulocytes Abs Auto 0.04 10^3/uL (0.00-0.03); Immature Granulocytes Pct Auto 0.4 % (0.0-0.5); Lymphocytes Absolute Auto 1.5 10^3/uL (1.2-3.8); Lymphocytes Percent Auto 13.7 % (20.5-60.0); Mean Corpuscular HGB Conc 30.2 g/dL (29.9-35.2); Mean Corpuscular Hemoglobin 24.4 pg (25.9-34.0); Mean Corpuscular Volume 80.7 fL (80.0-94.0); Mean Platelet Volume 8.7 fL (9.5-13.5); Monocytes Absolute Auto 0.8 10^3/uL (0.3-0.8); Monocytes Percent Auto 6.8 % (1.7-12.0); Neutrophils Absolute Auto 8.2 10^3/uL (1.4-6.5); Neutrophils Percent Auto 74.6 % (43.0-75.0); Platelet Count 324 10^3/uL (150-450); Red Blood Count 2.75 10^6/uL (4.70-6.10); Red Cell Distribution Width 15.6 % (11.0-15.0)
[2023-10-12 11:02] LABS: Hematocrit 22.2 % (42.0-54.0); Hemoglobin 6.7 g/dL (14.0-18.0)
[2023-10-12] MEDS: ACETAMINOPHEN 325 MG TABLET 650 MG PO (11:14)
[2023-10-12] MEDS: DIPHENHYDRAMINE HCL 25 MG CAPSULE PO (11:14)
[2023-10-12] MEDS: 0.9 % SODIUM CHLORIDE 250 ML 10 ML IV ×2 (11:18→12:29)
[2023-10-12 12:16] VITALS: BP 163/72; PULSE 54; TEMP 36.3; O2SAT 98
--- NOTE | 2023-10-12 12:21 | PC.NURSE ---
1220 1st unit of prbc's initiated at 120 ml hr. patient instructed on s/s of reaction ie: chest pain flank pain, shortness of breath. patient verbalizes understanding
[2023-10-12 12:30] VITALS: BP 149/72; PULSE 54; TEMP 36.2; O2SAT 97
--- NOTE | 2023-10-12 12:42 | PC.NURSE ---
1230 tolerating prbc's without signs or symptoms of reaction. rate increased to 240ml hr.
--- NOTE | 2023-10-12 12:56 | PC.NURSE ---
Tolerating prbc's without any issues. Eats 100% of meal.
[2023-10-12 13:43] VITALS: BP 160/77; PULSE 56; TEMP 36.2; O2SAT 97
[2023-10-12] MEDS: FUROSEMIDE 20 MG/2 ML VIAL 10 MG IVP (13:47)
--- NOTE | 2023-10-12 13:48 | PC.NURSE ---
1345 1st unit of prbc's infused. toleraated well . lasix 10 mg ivp as ordered. 1345 2nd unit of prbc's initiated at 120 ml hr. patient offers no complaints
[2023-10-12 14:02] VITALS: BP 162/81; TEMP 36.1; O2SAT 97
--- NOTE | 2023-10-12 14:16 | PC.NURSE ---
1402 tolerating prbc's rate increased to 250 ml hr.
[2023-10-12 14:39] VITALS: BP 148/69; PULSE 55; TEMP 36.2
--- NOTE | 2023-10-12 14:51 | PC.NURSE ---
1445 2nd unit of prbc's infused tolerated well. lungs remain clear. ns flush initiated
[2023-10-26 10:30] LABS: Basophils Percent Auto 0.3 % (0.2-2.0); Eosinophils Absolute Auto 0.5 10^3/uL (0.0-0.7); Eosinophils Percent Auto 4.8 % (0.9-7.0); Hematocrit 28.8 % (42.0-54.0); Hemoglobin 8.5 g/dL (14.0-18.0); Immature Granulocytes Abs Auto 0.04 10^3/uL (0.00-0.03); Immature Granulocytes Pct Auto 0.4 % (0.0-0.5); Lymphocytes Percent Auto 19.9 % (20.5-60.0); Mean Corpuscular HGB Conc 29.5 g/dL (29.9-35.2); Mean Corpuscular Hemoglobin 24.4 pg (25.9-34.0); Mean Corpuscular Volume 82.5 fL (80.0-94.0); Mean Platelet Volume 8.4 fL (9.5-13.5); Monocytes Absolute Auto 0.7 10^3/uL (0.3-0.8); Monocytes Percent Auto 7.1 % (1.7-12.0); Neutrophils Absolute Auto 6.6 10^3/uL (1.4-6.5); Neutrophils Percent Auto 67.5 % (43.0-75.0); Platelet Count 252 10^3/uL (150-450); Red Blood Count 3.49 10^6/uL (4.70-6.10); Red Cell Distribution Width 16.7 % (11.0-15.0); White Blood Count 9.8 10^3/uL (4.0-11.0)
[2023-10-26 10:37] LABS: Erythrocyte Sedimentation Rate >130 mm/hr (<=20)
[2023-10-26 10:50] LABS: Alanine Aminotransferase 17 U/L (16-63); Albumin Globulin Ratio 0.4; Alkaline Phosphatase 101 U/L (46-116); Anion Gap 8.6; Aspartate Amino Transferase 15 U/L (15-37); BUN Creatinine Ratio 20.8; Bilirubin Total 0.2 mg/dL (0.2-1.0); C Reactive Protein 5.68 mg/dL (<=0.50); Calcium 8.5 mg/dL (8.5-10.1); Carbon Dioxide 28.7 mmol/L (21.0-32.0); Chloride 104 mmol/L (98-107); Estimated GFR (African America >60 (>=60); Estimated GFR (Non-African Ame 50 (>=60); Globulin 5.7 g/dL; Glucose 180 mg/dL (74-106); Potassium 4.3 mmol/L (3.5-5.1); Sodium 137 mmol/L (136-145); Total Protein 7.7 g/dL (6.4-8.2)
[2023-10-26 10:57] LABS: Percent Iron Saturation 17.9 %
== END 2023-10-27 23:59 | disposition home or self-care (01) ==
LOC: HEMC 07:17
PROVIDERS: PCP Family Medicine; Visit Provider Internal Medicine Hematology & Oncology
DX: D50.9 Iron deficiency anemia, unspecified (principal); D64.9 Anemia, unspecified; D72.829 Elevated white blood cell count, unspecified
CPT/HCPCS: 36415; 36430; 80053; 82728; 83540; 83550; 85025; 85652; 86140; 86850; 86900; 86901; 86923; 96374; G0463; J1940; P9016

== ENCOUNTER 2023-11-02 15:45 | Outpatient (OUT) | payer BC, MEDICARE, SELFPAY | END 2023-11-02 15:46 | disposition home or self-care (01) | LOC: WC 15:45 | PROVIDERS: PCP Family Medicine; Visit Provider Physician Assistant | DX: E11.621 Type 2 diabetes mellitus with foot ulcer (principal); 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 with other specified severity; E11.622 Type 2 diabetes mellitus with other skin ulcer; L97.818 Non-pressure chronic ulcer of other part of right lower leg with other specified severity; L97.318 Non-pressure chronic ulcer of right ankle with other specified severity; L97.412 Non-pressure chronic ulcer of right heel and midfoot with fat layer exposed; I87.311 Chronic venous hypertension (idiopathic) with ulcer of right lower extremity; L97.812 Non-pressure chronic ulcer of other part of right lower leg with fat layer exposed | CPT/HCPCS: G0463 ==

== ENCOUNTER 2023-11-08 07:04 | Day surgery (SDC) | payer BC, MEDICARE, SELFPAY ==
--- OUTSIDE RECORDS SUMMARY | 2023-11-08 07:07 | XMS_ITS | CCD ---
Author Organization [facility] Care Team Providers Care Biometrics Instructor Name Role Phone WESTONMICHAELA Unavailable Unavailable NADERER, FIDEL LIEBERMAN Unavailable Unavailabl e AOUAD, THIAGO Sy Unavailable Unavailable BLOOD, GANGA Gutiérrez Unavailable Unavailable BRAMBILA, JAI Chowdhury Unavailable Unavailable SCHNIDAMIAN, WILLIAM Unavailable Unavaila KHADAR Starr Unavailable Unavailable NADERER, DR FIDEL Tellez Admitting [...] NADERER, DR FIDEL Tellez Primary Care Unavailable BERYL, DR KHADAR Edwrads Consulting Unavailable BRAR, DR CATHY Edwards Consulting Unavailable MD Fidel Abbott Primary Care Provider MD Cathy Brar Attending Provider [phone] Fidel Abbott MD Primary Care Provider MD Fidel Abbott Primary Care Provider [phone] MD Cathy Brar Attending Provider [phone] Fidel Abbott MD Primary Care Provider SHELLY MONDRAGON Referring Unavail able NADERERFIDEL Primary Care UnavailASHLEE Juan Referring Unavailable NADERER, FIDEL LIEBERMAN Primary Care UnavailASHLEE Juan Referring Unavailable NADERERFIDEL Primary Care Unavailabl e ANGELES NAGY Referring Unavailable NADERER, FIDEL LIEBERMAN Primary Care Unavailabl e JEAN, ANGELES Attending Unavailable JEAN, ANGELES Admitting Unavailable NADERER, FIDEL SCHAUMBURG Primary Care Unavailabl e IACOB, MATIAS Admitting Unavailable ROMARIO, MATIAS Attending Unavailable CANDIDATABBY, MARY Sol Consulting Unavailable NADERER, FIDEL LUISANA Primary Care Unavailabl e ZACIKRISTYKI, ANGELES Consulting Unavailable BREMYER, YAKOV Merritt Consulting Unavailable CIARAROSIE NEIL Consulting Unavailable AHMAD, MICHELLE Garcia Consulting Unavailable MILLYKATERINA BOYD Consulting Unavailable KATYEREPratik, FIDEL LUISANA Primary Care Unavailabl e JEAN, ANGELES Referring Unavailable NADERER, FIDEL LUISANA Primary Care Unavailabl e PARSASHLEE RAO Referring Unavailable KATYEREPratik, FIDEL Primary Care Physician [phone] Smiley NAZARIO, Fidel Primary Care Provider [phone] Smiley NAZARIO, Fidel Unavailable Smliey NAZARIO, Fidel Primary Care Provider JONATHAN MOFFETT Attending Unavailable FIDEL ABBOTT Attending Unavailable JONATHAN MOFFETT Attending Unavailable JONATHAN MOFFETT Attending Unavailable JONATHAN MOFFETT Referring Unavailable JONATHAN MOFFETT Attending Unavailable JONATHAN MOFFETT Attending Unavailable JONATHAN MOFFETT Attending Unavailable JONATHAN MOFFETT Attending Unavailable JONATHAN MOFFETT Attending Unavailable JONATHAN MOFFETT Attending Unavailable JONATHAN MOFFETT Attending Unavailable MD Fidel Abbott Primary Care Provider [phone] MD Cathy Brar Attending Provider CRISTIANA Mofeftt Attending Provider [phone] CRISTIANA Bahena Attending Provider Cathy Brar Admitting Unavailable Cathy Brar Attending [...] Care Unavailable Bubba Bahena Admitting Unavailable Bubba aBhena Attending Unavailable ALLEN, Parvin Christie Attending Unavailable VILLA, Parvin Christie Attending Unavailable VILLA, Parvin Christie Referring Unavailable VILLA, Parvin Christie Attending Unavailable VILLA, Parvin Christie Attending Unavailable VILLA, Parvin Christie Attending Unavailable Khadar Guerrero Referring Unavailable FIDEL ABBOTT Primary Care Unavailable FIDEL ABBOTT Referring Unavailable Allergies Allergy Classification Reported Allergen(s) Allergy Type Date of Onset Reaction(s) Facility (6 sources) Vancomycin; 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: [VANCOMYCIN] Drug Allergy 6 Shut kidneys down [facility] Rep[facility] (9 sources) Vancomycin Drug Allergy 6 Other, Unknown [facility] (6 sources) omadacycline; 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: [omadacycl] Drug allergy 3 Renal pain (finding) [facility] (3 sources) ferrous sulfate; 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: [ferrous sulfate] Drug Allergy 3 Itching [facility] (1 source) Vancomycin Drug Allergy 3 [facility] Repository Medications Current Medications Medication Drug Class(es) [...] Start: 12-07-2016 take 1 tablet by mack once daily Citalopram (Celexa) 40 mg Tablet [...] Hydrocodone-Acetami nophen Discontinued 1 TAB PO Q6H 23 10September 08, 2022 February 06, 2023 10:43pm Start: [...] Called to pharmacy 09/09/2021 polyethylene glycol 3350 39951 mg powder for oral solution (1 source) Osmotic Laxative Start: 06-22-2022 17 g, Oral, D AILY PRN, Starting on Wed06/22/22 at 2018, Until Discontinued, Constipation First line therapy for constipation polyethylene glycol 3350 826629 mg / potassium chloride 2970 mg / sodium bicarbonate 6740 mg / sodium chloride 5860 mg / sodium sulfate 83191 mg powder for oral solution (1 source) [...] GM/60ML suspension 45 g sodium zirconium cyclosilicate 40459 mg powder for oral suspension (1 source) [...] 10:21am Start: 12-07-2016 End: 12-08-2016 Bactrim Discontinued [facility] 2016 12:00am December 08, 2016 2:50pm Start: 12-07-2016 End: 12-08-2016 Bactrim Discontinued [facility] 2016 11:00pm December 08, 2016 1:50pm triamcinolone [...] mellitus without complications] Onset: 2 05-06-2020 Chronic Diseases of white blood cells (1 source) Elevated white blood cell count, unspecified; 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: [Elevated white blood cell count, unspecified] Onset: 4 Chronic Disorders of lipid metabolism (10 sources) [...] Acute and unspecified renal failure (16 sources) Fbhcu-kc-kzrtxpu renal failure; 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: [Acute kidney failure, unspecified] [...] 02-25-2011 01-07-2017 Episodic Other aftercare (1 source) senior care (current) use of insulin; 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: [senior care (current) use of insulin] Onset: 02-06-2023 Episodic [...] Test Name Value Interpretation Reference Range Facility BONE MARROWon 10-11-2023 BONE MARROW SEE SEPARATE REPORT Normal [facility] Comment on above: Result Comment: REVI EWED BY SOLEDAD HUYNH M.D. Performed By: #### E XHR, 15504-0, MDSDF #### [facility] ([id number]) [address], [place] [address] #### 83211-9, PENNY #### [facility] ([id number]) [address], [address] [place] [address] CBC AND AUTO DIFFon 10-11-19 ABSOLUTE BASOPHIL 0.0 X10E9/L Normal 0.0-0.2 [facility] Comment on above: Performed By: #### P INR, CBCA #### [facility] ([id number]) [address] [place] [address] ABSOLUTE NEUTROPHIL 8.0 X10E9/L High 1.5-6.6 [facility] Comment on above: Performed By: #### P INR, CBCA #### [facility] ([id number]) [address] [place] [address] 97859 Basophils/100 WBC (Bld) 0.3 % Normal [facility] Comment on above: Performed By: #### P INR, CBCA #### [facility] ([id number]) [address] [place] [address] 52851 Eosinophils (Bld) [#/Vol] 0.5 10*3/uL High 0.0-0.4 [facility] Comment on above: Performed By: #### P INR, CBCA #### [facility] ([id number]) [address] [place] [address] 66513 Eosinophils/100 WBC (Bld) 4.4 % Normal [facility] Comment on above: Performed By: #### P INR, CBCA #### [facility] ([id number]) [address] [place] [address] 72773 Erythrocyte distribution width (RBC) [Ratio] 16.8 % High 11.5-15.0 [facility] Comment on above: Performed By: #### P INR, CBCA #### [facility] ([id number]) [address] [place] [address] 35610 Hematocrit (Bld) [Volume fraction] 20.1 % Low 39-49 [facility] Comment on above: Performed By: #### P INR, CBCA #### [facility] ([id number]) [address] [place] [address] 52204 Hemoglobin (Bld) [Mass/Vol] 6.6 g/dL Critically low 13.0-17.0 [facility] Comment on above: Performed By: #### P INR, CBCA #### [facility] ([id number]) [address] [place] [address] 55578 Lymphocytes (Bld) [#/Vol] 1.4 10*3/uL Normal 1.0-3.5 [facility] Comment on above: Performed By: #### P INR, CBCA #### [facility] ([id number]) [address] [place] [address] 02355 Lymphocytes/100 WBC (Bld) 13.0 % Normal [facility] Comment on above: Performed By: #### P INR, CBCA #### [facility] ([id number]) [address] [place] [address] 21638 MCH (RBC) [Entitic mass] 24.7 pg Low 27-34 [facility] Comment on above: Performed By: #### P INR, CBCA #### [facility] ([id number]) [address] [place] [address] 64727 MCHC (RBC) [Mass/Vol] 32.6 g/dL Normal 32-36 [facility] Comment on above: Performed By: #### P INR, CBCA #### [facility] ([id number]) [address] [place] [address] 29946 MCV (RBC) [Entitic vol] 76 fL Low 80-100 [facility] Comment on above: Performed By: #### P INR, CBCA #### [facility] ([id number]) [address] [place] [address] 86495 Monocytes (Bld) [#/Vol] 0.9 10*3/uL Normal 0-0.9 [facility] Comment on above: Performed By: #### P INR, CBCA #### [facility] ([id number]) [address] [place] [address] 33969 Monocytes/100 WBC (Bld) 8.2 % Normal [facility] Comment on above: Performed By: #### P INR, CBCA #### [facility] ([id number]) [address] [place] [address] 77595 Neutrophils/100 WBC (Bld) 74.1 % Normal [facility] Comment on above: Performed By: #### P INR, CBCA #### [facility] ([id number]) [address] [place] [address] 46009 Platelet mean volume (Bld) [Entitic vol] 7.0 fL Normal 7-12 [facility] Comment on above: Performed By: #### P INR, CBCA #### [facility] ([id number]) [address] [place] [address] 40010 Platelets (Bld) [#/Vol] 371 10*3/uL Normal 150-450 [facility] Comment on above: Performed By: #### P INR, CBCA #### [facility] ([id number]) [address] [place] [address] 88206 RBC COUNT 2.66 X10E12/L Low 4.10-5.70 [facility] Comment on above: Performed By: #### P INR, CBCA #### [facility] ([id number]) [address] [place] [address] 42939 WBC (Bld) [#/Vol] 10.8 10*3/uL Normal 4.0-11.0 [facility] Comment on above: Performed By: #### P INR, CBCA #### [facility] ([id number]) [address] [place] [address] 65667 DNA and RNA Extract and Hold on 10-11-2023 DNA and RNA Extract and Hold SEE COMMENTS 10/14/2023 08:52 AM [facility] Comment on above: Result Comment: NOTE Test Result Flag Unit RefValue DNA and RNA Extract and Hold Specimen Type EDTA BONE MARROW DNA/RNA Extract and Hold Result see method DNA/RNA Extraction Performed ADDITIONAL INFORMATION DNA and total RNA were extracted from the sample and will be stored cryopreserved for 1 year from the extraction date. To request specific molecular test(s) from the [facility]'s test catalog, please contact [facility] at [phone]. Method summary: DNA and RNA were extracted from the received specimen and stored at -80 C. This test was developed and its performance characteristics determined by [facility] in a manner consistent with CLIA requirements. This test has not been cleared or approved by the U.S. Food and Drug Administration. Test Performed by: [place] [id number] Director Food And Beverage: Rosie Ruby Ph.D.; CLIA# [id number] Performed By: #### Luciana MORILLO, 19697-0, MDSDF #### [facility] ([id number]) [address] [place] [address] 23432 #### 09683-0, PENNY #### [facility] ([id number]) [address], [address] [place] [address] Flow cytometry specialist re view Álvaro (Unsp spec) [Interp]on 10-11-2023 FLOW CYTOMETRY BM SEE SEPARATE REPORT, REVIEWED BY PATHOLOGIST [facility] Comment on above: Performed By: #### Luciana MORILLO, 62366-4, MDSDF #### [facility] ([id number]) [address] [place] [address] [place] [address] #### 23872-0, PENNY #### [facility] ([id number]) [address], [address] [place] [address] IR BX AND ASP BONE MARROW SN GL OR MULTon 10-11-2023 IR BX AND ASP BONE MARROW SNGL OR MULT IR BX AND ASP BONE MARROW SNGL OR MULT HISTORY: 63-year-old male with leukocytosis. Bone marrow aspirate and bone biopsy was requested. PROCEDURE: The procedure was performed by Dr. Guerrero. Benefits and potential risks of procedure were explained to the patient and informed written consent was obtained. Automated exposure control was utilized. The patient was brought to the procedure area, and a time out was performed. All elements of maximal sterile barrier technique were followed, including cap, mask, sterile gown, sterile gloves, large sterile sheet, hand hygiene, and 2% chlorhexidine for percutaneous antisepsis. When ultrasound is used, sterile probe cover and sterile gel were employed. Conscious sedation was not utilized for this procedure. . Following the procedure, the patient was sent to recovery in stable condition. Estimated blood loss was less than 5 mL Following appropriate prep and drape and using lidocaine for local anesthesia, a bone marrow aspirate and bone biopsy was performed under CT guidance on the left iliac bone using an [employer] powered bone marrow biopsy system. The bone marrow was obtained, submitted to, an approved by pathology was in attendance. Following this, a bone biopsy was then performed and it too was submitted to pathology. Follow scan showed no evidence of a complicating process. The patient tolerated the procedure well and was sent to recovery in stable condition. IMPRESSION: Successful uncomplicated bone marrow aspirate and bone biopsy performed under CT guidance. Finalized by Khadar Guerrero MD on 10/11/2023 9:49 AM Normal [facility] Karyotype Nom (BM)on 024 CHROMOSOME BONE MARROW SEE COMMENTS 10/19/2023 02:37 PM Normal [facility] Comment on above: Result Comment: NOTE Test Result Flag Unit RefValue Chromosomes, Hematologic, BM Result Summary Normal Interpretation See Note No clonal abnormality was apparent. Since this conventional chromosome study was successful, MDS, Diag FISH was cancelled per lab protocol (Isma Christie et al., AJCP, 146:86-94, 2016; [facility] MDS Algorithm: www.[email or web address]/it-mmfiles/Myelodysplastic_Syndrome_G uideline_to_Diagnosis_and_Follow-up.pdf). Result 46,XY[20] Reason for Referral leukocytosis Specimen Bone Marrow Source Left iliac crest Method Culture without mitogens Banding Method See Note Band Resolution: <400 Stain Name Cells Analyzed Cells Karyograms Counted Prepared GTL 20 0 2 Total 20 0 2 Kohli to Stain Name: GTL=G-banding; QFQ=Q-banding; DAPI=DAPI-staining; CBL=C-banding; AGNOR=Silver-staining; NON=Non-banded The sum of Cells Analyzed and Cells Counted equals the total cells examined. Additional Information See Note A portion of the testing process was performed at [facility] [employer] site 6[address]. Released By Tanvi Loo M.D. Test Performed by: [facility] [place] [address] Director Food And Beverage: Rosie Ruby Ph.D.; CLIA# [id number] Performed By: #### E XHR, 93392-7, MDSDF #### [facility] ([id number]) [address] [address] #### 43286-5, PENNY #### [facility] ([id number]) [address], [address] [place] [address] MYELODYSPLASTIC SYNDROME (MD S),DIAGNOSTIC FISH, VARIESon 10-11-2023 MYELODYSPLASTIC SYNDROME (MDS),DIAGNOSTIC FISH, VARIES SEE COMMENTS 10/22/2023 08:45 AM Normal [facility] Comment on above: Result Comment: NOTE Test Result Flag Unit RefValue MDS, Diagnostic FISH Interpretation TNP MDS, Diagnostic FISH was cancelled on 10/22/2023 at 08:41; Based on other test results additional testing not required. MDS FISH order was cancelled per laboratory protocol (Isma et al., Amer J Clin Pathol 146:86-94, 2016; [facility] MDS Algorithm: www.[email or web address].[email or web address]/it-mmfiles/Myelodysplastic_S yndrome_Guideline_ to_Diagnosis_and_Follow-up.pdf) with Probes -RPN1(G)/MECOM(R), -TP53(R)/D17Z1(G), -D8Z2(G)/MYC(R), -A69Z634(R)/20QTER(G), -E6P803(G)/EGR1(R), -D7Z1(G)/D6Z695(R) Test Performed by: [facility] [place] [address] Director Food And Beverage: Rosie Ruby Ph.D.; CLIA# [id number] Performed By: #### E XHR, 66222-0, MDSDF #### [facility] ([id number]) [address] [place] [address] #### 27692-6, PENNY #### [facility] ([id number]) [address] [place] [address] PROTIME AND INRon 10-11-2023 INR Coag (PPP) [Relative time] 1.3 {INR} High 0.8-1.1 [facility] Comment on above: Performed By: #### P INR, CBCA #### [facility] ([id number]) [address] [place] [address] PT Coag (PPP) [Time] 14.9 s High 9.8-13.2 [facility] Comment on above: Result Comment: NEW REFERENCE RANGE Performed By: #### P INR, CBCA #### [facility] ([id number]) [address] [place] [address] Surgical Pathologyon 024 Surgical Pathology Normal [facility] Comment on above: Result Comment: [facility] [address] [place] [address] Bone Marrow Consultation Patient Name:GANGA STINSON:1960 (Age: 63)Gender:MTaken:4Reported:10/14/2023hysician(s):Nina River ([phone])Copy To:Khadar Guerrero M.D. Rec. #:[id number]: #[id number] Final Pathologic Diagnosis Bone marrow, aspiration and biopsy: Normocellular bone marrow with trilineage maturing hematopoiesis. Moderate to marked interstitial plasmacytosis, favor benign. Increased iron stores with no ring sideroblasts. Peripheral blood hypochromic microcytic anemia and mild neutrophilia. Comment: The etiology of the peripheral blood findings of hypochromic microcytic anemia and mild neutrophilia is not readily apparent from the morphologic evaluation of the peripheral blood and bone marrow. Morphologic features of myelodysplasia are not demonstrated. There is no increase in the number of blasts. Chromosome analysis and MDS FISH are pending and results will follow. There is moderate to marked interstitial plasmacytosis. The plasma cells are present singly and in small groups and are estimated to represent approximately 50% of the marrow cellularity. Flow cytometric analysis as well as in situ hybridization for kappa and lambda light chains demonstrate no evidence of of a monoclonal plasma cell population. The findings are most likely reactive. Report Electronically Signed Out nxk/10/14/2023Soledad Huynh MD Flow Cytometry-Surg/BM/NG Date Reported: 10/14/2023 Normal marrow immunophenotyping results. Flow cytometric analysis of the marrow aspirate cells demonstrates maturing hematopoietic elements. Blasts are not increased on CD45/side scatter analysis or CD34 staining. No aberrant patterns of antigen acquisition are identified on maturing myeloid cells. Fonda on the lymphoid population demonstrates a mixed population of phenotypically unremarkable T-cells, polyclonal B-cells, and natural killer cells, without a detectable monoclonal population. No monotypic plasma cell population is identified. Immunophenotyping antibodies tested: CD2, CD3, CD4, CD5, CD7, CD8, CD10, CD13, CD16, CD19, CD20 , CD23, CD33, CD34, CD38, CD43, CD45, CD56, CD117, CD123, CD138, [place], Lambda. Cytoplasmic Mathiston/CD38, Cytoplasmic Lambda/CD38, and intrinsic VS38 Immunophenotyping Comment: Immunophenotyping has been used in this diagnostic evaluation. This test was developed and its performance characteristics determined by the [facility] Department. It has not been cleared or approved by the U.S. Food and Drug Administration. The FDA has determined that such clearance or approval is not necessary. This test is used for clinical purposes. It should not be regarded as investigational or for research. This laboratory is certified under the Clinical Laboratory Improvement Amendments of 1988 ( CLIA ) as qualified to perform high-complexity clinical testing. Electronically Signed Out Soledad Huynh MD Interpretation performed at [facility], [address] [place], [place] [address], License number: [id number]. Clinical History Leukocytosis. Gross Description 1. Received in B plus fixative labeled ALLOWAY, clot is a friable portion of hemorrhagic material, 2.2 x 1.0 x 0.4 cm in aggregate. The specimen is submitted entirely in a single cassette. (1, ns, [id number], m1) LADONNA 2. Received in B plus fixative labeled ALLOWAY, core is a pale osborne-pardo cylindrical segment of bone with adherent hemorrhagic material, 1.0 cm in length and 0.2 cm in diameter. The specimen is submitted entirely in a single cassette following a period of decalcification in Rapid-Delbert Immuno. (1, ns, [id number], m1) LADONNA Comment: Per epic IR procedure note, the site is verified as left iliac . ladonna/10/11/2023NXK Microscopic Findings Clinical History: Leukocytosis CBC: WBC: 10.8 x109/L. RBC: 2.66 x 1012/L. Hb: 6.6 g/dL. Hct: 20.1. MCV: 75.8 fL. RDW: 16.8. Platelets: 371 x109/L. Automated differential count: Neutrophils: 8.0 x109/L. Lymphocytes: 1.4 x109/L. Monocytes: 0.9 x109/L. Eosinophils: 0.5 x109/L. Basophils: 0.0 x109/L. Procedure performed/anatomic site: Left iliac crest. Aspirate smear/aspirate clot/core bx PERIPHERAL BLOOD SMEAR: Morphology/interpretation: The neutrophilic leukocytes consist of bands and polys with no abnormal immature cells. There is no eosinophilia or basophilia. The platelets are adequate. BONE MARROW ASPIRATE: Cellularity/adequacy of particles and cell trails: Adequate Nucleated cell differential count (%): (200 cells counted) (Normal) (0-2%) 1 Blasts (1-5%) 1 Promyelocytes (32-72%) 61 Myelos/Metas/Bands/Segs (13-37%) 18.5 erythroid precursors (1-6%) 4.5 eosinophils (0-1%) 0 Basophils (0-4%) 0 Monocytes (7-23%) 7.5 l (more content not included)... Martín 07-08-2023 L Specimen: [id number] Received: 07/12/23 Status: ROSIO Matti Num: [id number] Spec Type: Surgical Subm Dr: Bubba Bahena,DPM, MS Tissues: A Debridement-Skin/Other Than Skin (LEFT FIBULA) B Debridement-Skin/Other Than Skin (LEFT TALUS) Procedures: HE/2, Gross/Micro L3/2 Age/ Patient Sex Location Account Attending Physician RubenGanga Cristina 63/M [facility] [id number] Bubba Bahena DPM, MS SPEC NUM: [id number] RECD: 07/12/23 STATUS: SOUT REQ NUM: [id number] NAYLA: 07/08/[address] [facility] [address]: Bubba Bahena DPM, MS ENTERED: 07/12/[address] [facility] [address]: Titi,Lab SPEC TYPE: Surgical DEPT: RAFI [...] pressure ulcer of left heel?path pending Specimen: [id number] Received: 07/12/23 Status: ROSIO Rajput Num: [id number] Spec Type: Surgical Subm Dr: Bubba Bahena DPM, MS Tissues: A Debridement-Skin/Other Than Skin (LEFT FIBULA) B Debridement-Skin/Other Than Skin (LEFT TALUS) Procedures: ISMA/Brianne, Gross/Micro L3/2 Patient: Ganga Stinson [id number] (Continued) Specimen: [id number] Received: 07/12/23 (Continued) Signed (signature on file) Anh Smith MD 07/14/23 1022 Specimen: [id number] Received: 07/12/23 Status: ROSIO Rajput Num: [id number] Spec Type: Surgical Subm Dr: Bubba Bahena DPM, MS Tissues: A Debridement-Skin/Other Than Skin (LEFT FIBULA) B Debridement-Skin/Other Than Skin (LEFT TALUS) Procedures: ISMA/2, Gross/Micro L3/2 Patient: Ganga Stinson [id number] (Continued) Specimen: [id number] Received: 07/12/23 (Continued) CPT Codes 41330 x 2 74870 x 2 Specimen: [id number] Received: 07/12/23 Status: ROSIO Rajput Num: [id number] Spec Type: Surgical Subm Dr: Bubba Bahena,DPM, MS Tissues: A Debridement-Skin/Other Than Skin (LEFT FIBULA) B Debridement-Skin/Other Than Skin (LEFT TALUS) Procedures: ISMA/2, Gross/Micro L3/2 Patient: Ganga Stinson [id number] (Continued) Signed (signature on file) Chin-Mihai Smith MD 07/14/23 1022 Normal [facility] Consent for Procedure/Surger yon 06-14-2023 Consent for Procedure/Surgery [id number] Normal [facility] Aerobic Cultureon 06-04-2023 Aerobic Culture Comment left fibular bone biopsy ORGANISM: Strep dysgalactiae (O:STRDYS) Quantity of Growth Heavy Growth Comment left fibular bone biopsy ORGANISM: Prevotella disiens (O:PREDIS) Comments Sent to [facility] for Sensitivity Testing Quantity of Growth Light Growth Please see scanned report located in the EMR under the Diagnostics tab -> Scanned Lab Reports -> Laboratory. Comment left fibular bone biopsy Gram Stain Result No Bacteria Seen Rare White Blood Cells PERFORMED BY: [facility] [address] [facility] [place] [address] PATHOLOGIST EIGHT SECTION BLOWER FARRAH PAUL M.D. Normal [facility] Comment on above: Performed By: #### A ERC #### [facility] [address] [place] [address] [place] Glucose Glucometer (BldC) [M ass/Vol]Ordered By: Jonathan Moffett on 06-04-2023 Glucose [Mass/Vol] 134 mg/dL [facility] Comment on above: Random Glucose Refer ence Range is dependent on time and content of last meal. Glucose of more than 200 mg/dL in a nonstressed, ambulatory subject supports the diagnosis of Diabetes Mellitus. Glucose Poct Glucometerson 0 06-04-2023 Glucose [Mass/Vol] 134 mg/dL Normal [facility] Comment on above: Result Comment: Fertile om Glucose Reference Range is dependent on time and content of last meal. Glucose of more than 200 mg/dL in a nonstressed, ambulatory subject supports the diagnosis of Diabetes Mellitus. PERFORMED BY: [place] [address] [place] [address] PATHOLOGIST EIGHT SECTION BLOWER FARRAH PAUL M.D. Performed By: #### G LULS #### Point of Care testing , Gram stain for investigation of transfusion reactionOrdered By: Jonathan Moffett on 06-04-2023 Microscopic observation Gram stain Nom (Unsp spec) Prevotella disiens [facility] Reportson 05-18-2023 Lab Reports [id number] Normal [facility] Reminderson 04-30-2023 Reminders - From: Ama Arteaga To: [place] - Recalls [place]; Cc: Ama Arteaga; Sent: 01/15/2023 08:12:10 EDT Show up: 04/29/2023 08:12:00 EST Subject: Cysto/UD Due Date/Time: 06/07/2023 08:11:00 EDT Reminder/Recall Patient needs 6 month cysto/UD in June 2023 Spoke to pt, sched for 07/12/23 at [facility].LG Patient will be due in Dec 2023.LG Normal [facility] Basic Metabolic Panelon 11-1 Anion gap [Moles/Vol] 8.4 mmol/L Normal 6.0-15.0 [facility] Comment on above: Performed By: #### G LULS #### Point of Care testing , Calcium [Mass/Vol] 7.8 mg/dL Low 8.6-10.3 [facility] Comment on above: Performed By: #### G LULS #### Point of Care testing , Chloride [Moles/Vol] 108 mmol/L High 98-107 [facility] Comment on above: Performed By: #### G LULS #### Point of Care testing , CO2 [Moles/Vol] 24.7 mmol/L Normal 21.0-31.0 [facility] Comment on above: Performed By: #### G LULS #### Point of Care testing , Creatinine [Mass/Vol] 1.41 mg/dL High 0.70-1.30 [facility] Comment on above: Performed By: #### G LULS #### Point of Care testing , Creatinine Clr Calc Pharmacy 69.02 Normal [facility] Comment on above: Result Comment: PERF ORMED BY: [address] [place] [address] PATHOLOGIST EIGHT SECTION BLOWER FARRAH PAUL M.D. Performed By: #### G LULS #### Point of Care testing , GFR/1.73 sq M.predicted MDRD (S/P/Bld) [Vol rate/Area] 56.696 mL/min/{1.73_m2} Normal [facility] Comment on above: Performed By: #### G LULS #### Point of Care testing , Glucose [Mass/Vol] 176 mg/dL Significant change up 70-100 [facility] Comment on above: Result Comment: Fertile Glucose Reference Range is dependent on time and content of last meal. Glucose of more than 200 mg/dL in a nonstressed, ambulatory subject supports the diagnosis of Diabetes Mellitus. ADA recommended reference range Performed By: #### G LULS #### Point of Care testing , Potassium [Moles/Vol] 4.1 mmol/L Normal 3.5-5.1 [facility] Comment on above: Performed By: #### G LULS #### Point of Care testing , Sodium [Moles/Vol] 137 mmol/L Normal 136-145 [facility] Comment on above: Performed By: #### G LULS #### Point of Care testing , Urea nitrogen [Mass/Vol] 17 mg/dL Normal 7-25 [facility] Comment on above: Performed By: #### G LULS #### Point of Care testing , Glucose Poct Glucometerson 1 04-15-2022 Commemt1 Glu2: Cleaned Meter Normal [facility] Comment on above: Result Comment: PERF ORMED BY: [address] [address] PATHOLOGIST EIGHT SECTION BLOWER FARRAH PAUL M.D. Performed By: #### G LULS #### Point of Care testing , Glucose [Mass/Vol] 162 mg/dL Normal [facility] Comment on above: Result Comment: Fertile Glucose Reference Range is dependent on time and content of last meal. Glucose of more than 200 mg/dL in a nonstressed, ambulatory subject supports the diagnosis of Diabetes Mellitus. Performed By: #### G LULS #### Point of Care testing , Glucose [Mass/Vol] 76 mg/dL Normal [facility] Comment on above: Result Comment: Fertile om Glucose Reference Range is dependent on time and content of last meal. Glucose of more than 200 mg/dL in a nonstressed, ambulatory subject supports the diagnosis of Diabetes Mellitus. PERFORMED BY: [address] [address] PATHOLOGIST EIGHT SECTION BLOWER FARRAH PAUL M.D. Performed By: #### G LULS #### Point of Care testing , Basic Metabolic Panelon 11- Anion gap [Moles/Vol] 10.8 mmol/L Normal 6.0-15.0 [facility] Comment on above: Performed By: #### G LULS #### Point of Care testing , Calcium [Mass/Vol] 8.0 mg/dL Low 8.6-10.3 [facility] Comment on above: Performed By: #### G LULS #### Point of Care testing , Chloride [Moles/Vol] 106 mmol/L Normal 98-107 [facility] Comment on above: Performed By: #### G LULS #### Point of Care testing , CO2 [Moles/Vol] 26.2 mmol/L Normal 21.0-31.0 [facility] Comment on above: Performed By: #### G LULS #### Point of Care testing , Creatinine [Mass/Vol] 1.47 mg/dL High 0.70-1.30 [facility] Comment on above: Performed By: #### G LULS #### Point of Care testing , Creatinine Clr Calc Pharmacy 66.15 Normal [facility] Comment on above: Result Comment: PERF ORMED BY: [facility] [address] [place] [address] PATHOLOGIST EIGHT SECTION BLOWER FARRAH PAUL M.D. Performed By: #### G LULS #### Point of Care testing , GFR/1.73 sq M.predicted MDRD (S/P/Bld) [Vol rate/Area] 53.931 mL/min/{1.73_m2} Normal [facility] Comment on above: Performed By: #### G LULS #### Point of Care testing , Glucose [Mass/Vol] 71 mg/dL Normal 70-100 [facility] Comment on above: Result Comment: Fertile Glucose Reference Range is dependent on time and content of last meal. Glucose of more than 200 mg/dL in a nonstressed, ambulatory subject supports the diagnosis of Diabetes Mellitus. ADA recommended reference range Performed By: #### G LULS #### Point of Care testing , Potassium [Moles/Vol] 4.0 mmol/L Normal 3.5-5.1 [facility] Comment on above: Performed By: #### G LULS #### Point of Care testing , Sodium [Moles/Vol] 139 mmol/L Normal 136-145 [facility] Comment on above: Performed By: #### G LULS #### Point of Care testing , Urea nitrogen [Mass/Vol] 18 mg/dL Normal 7-25 [facility] Comment on above: Performed By: #### G LULS #### Point of Care testing , Complete Blood Count Auto Di ffon 02-12-2023 Basophils (Bld) [#/Vol] 0.1 10*3/uL Normal 0.0-0.2 [facility] Comment on above: Result Comment: PERF ORMED BY: [facility] [address] PATHOLOGIST EIGHT SECTION BLOWER FARRAH PAUL M.D. Performed By: #### G LULS #### Point of Care testing , Basophils/100 WBC (Bld) 0.6 % Normal . [facility] Comment on above: Performed By: #### G LULS #### Point of Care testing , Eosinophils (Bld) [#/Vol] 0.7 10*3/uL High 0.0-0.45 [facility] Comment on above: Performed By: #### G LULS #### Point of Care testing , Eosinophils/100 WBC (Bld) 5.7 % Normal . [facility] Comment on above: Performed By: #### G LULS #### Point of Care testing , Erythrocyte distribution width (RBC) [Ratio] 15.6 % High 12.0-14.8 [facility] Comment on above: Performed By: #### G LULS #### Point of Care testing , Hematocrit (Bld) [Volume fraction] 27.3 % Low 38.8-50.0 [facility] Comment on above: Performed By: #### G LULS #### Point of Care testing , Hemoglobin (Bld) [Mass/Vol] 8.7 g/dL Low 13.0-17.0 [facility] Comment on above: Performed By: #### G LULS #### Point of Care testing , Lymphocytes (Bld) [#/Vol] 2.2 10*3/uL Normal 1.00-4.8 [facility] Comment on above: Performed By: #### G LULS #### Point of Care testing , Lymphocytes/100 WBC (Bld) 18.7 % Normal . [facility] Comment on above: Performed By: #### G LULS #### Point of Care testing , MCH (RBC) [Entitic mass] 25.4 pg Low 27.5-35.2 [facility] Comment on above: Performed By: #### G LULS #### Point of Care testing , MCV (RBC) [Entitic vol] 79.6 fL Low 83.5-101 [facility] Comment on above: Performed By: #### G LULS #### Point of Care testing , Mean Corpuscular HGB Conc 32.0 g/dL Low 32.5-35.6 [facility] Comment on above: Performed By: #### G LULS #### Point of Care testing , Monocytes (Bld) [#/Vol] 1.0 10*3/uL High 0.0-0.8 [facility] Comment on above: Performed By: #### G LULS #### Point of Care testing , Monocytes/100 WBC (Bld) 8.8 % Normal . [facility] Comment on above: Performed By: #### G LULS #### Point of Care testing , Neutrophils (Bld) [#/Vol] 7.9 10*3/uL High 1.8-7.7 [facility] Comment on above: Performed By: #### G LULS #### Point of Care testing , Neutrophils/100 WBC (Bld) 66.2 % Normal . [facility] Comment on above: Performed By: #### G LULS #### Point of Care testing , NRBC% 0.1 /100{WBC} Normal 0-0.5 [facility] Comment on above: Performed By: #### G LULS #### Point of Care testing , Platelet mean volume (Bld) [Entitic vol] 6.4 fL Low 6.6-10.1 [facility] Comment on above: Performed By: #### G LULS #### Point of Care testing , Platelets (Bld) [#/Vol] 305 10*3/uL Normal 150-450 [facility] Comment on above: Performed By: #### G LULS #### Point of Care testing , RBC (Bld) [#/Vol] 3.43 10*6/uL Low 3.90-5.60 [facility] Comment on above: Performed By: #### G LULS #### Point of Care testing , WBC (Bld) [#/Vol] 11.9 10*3/uL High 4.1-10.5 [facility] Comment on above: Performed By: #### G LULS #### Point of Care testing , Glucose Poct Glucometerson 04-14-2022 Glucose [Mass/Vol] 138 mg/dL Normal [facility] Comment on above: Result Comment: [facility] Glucose Reference Range is dependent on time and content of last meal. Glucose of more than 200 mg/dL in a nonstressed, ambulatory subject supports the diagnosis of Diabetes Mellitus. PERFORMED BY: [address] [place] [address] PATHOLOGIST EIGHT SECTION BLOWER FARRAH PAUL M.D. Performed By: #### G LULS #### Point of Care testing , Glucose [Mass/Vol] 172 mg/dL Normal [facility] Comment on above: Result Comment: [facility] Glucose Reference Range is dependent on time and content of last meal. Glucose of more than 200 mg/dL in a nonstressed, ambulatory subject supports the diagnosis of Diabetes Mellitus. PERFORMED BY: [address] [place] [address] PATHOLOGIST EIGHT SECTION BLOWER FARRAH PAUL M.D. Performed By: #### G LULS #### Point of Care testing , Glucose [Mass/Vol] 99 mg/dL Normal [facility] Comment on above: Result Comment: [facility] Glucose Reference Range is dependent on time and content of last meal. Glucose of more than 200 mg/dL in a nonstressed, ambulatory subject supports the diagnosis of Diabetes Mellitus. PERFORMED BY: [address] [place] [address] PATHOLOGIST EIGHT SECTION BLOWER FARRAH PAUL M.D. Performed By: #### G LULS #### Point of Care testing , Commemt1 Glu2: Cleaned Meter Normal [facility] Comment on above: Result Comment: PERF ORMED BY: [facility] [address] [place] [address] PATHOLOGIST EIGHT SECTION BLOWER FARRAH PAUL M.D. Performed By: #### G LULS #### Point of Care testing , Glucose [Mass/Vol] 81 mg/dL Normal [facility] Comment on above: Result Comment: [facility] Glucose Reference Range is dependent on time and content of last meal. Glucose of more than 200 mg/dL in a nonstressed, ambulatory subject supports the diagnosis of Diabetes Mellitus. Performed By: #### G LULS #### Point of Care testing , Basic Metabolic Panel 01-27 Anion gap [Moles/Vol] 10.0 mmol/L Normal 6.0-15.0 [facility] Comment on above: Performed By: #### G LULS #### Point of Care testing , Calcium [Mass/Vol] 8.2 mg/dL Low 8.6-10.3 [facility] Comment on above: Performed By: #### G LULS #### Point of Care testing , Chloride [Moles/Vol] 106 mmol/L Normal 98-107 [facility] Comment on above: Performed By: #### G LULS #### Point of Care testing , CO2 [Moles/Vol] 24.4 mmol/L Normal 21.0-31.0 [facility] Comment on above: Performed By: #### G LULS #### Point of Care testing , Creatinine [Mass/Vol] 1.25 mg/dL Normal 0.70-1.30 [facility] Comment on above: Performed By: #### G LULS #### Point of Care testing , Creatinine Clr Calc Pharmacy 77.72 Normal [facility] Comment on above: Result Comment: PERF ORMED BY: [facility] [address] [place] [address] PATHOLOGIST EIGHT SECTION BLOWER FARRAH PAUL M.D. Performed By: #### G LULS #### Point of Care testing , GFR/1.73 sq M.predicted MDRD (S/P/Bld) [Vol rate/Area] mL/min/{1.73_m2} Normal [facility] Comment on above: Performed By: #### G LULS #### Point of Care testing , Glucose [Mass/Vol] 164 mg/dL High 70-100 [facility] Comment on above: Result Comment: [facility]ert[facility] Glucose Reference Range is dependent on time and content of last meal. Glucose of more than 200 mg/dL in a nonstressed, ambulatory subject supports the diagnosis of Diabetes Mellitus. ADA recommended reference range Performed By: #### G LULS #### Point of Care testing , Potassium [Moles/Vol] 4.4 mmol/L Normal 3.5-5.1 [facility] Comment on above: Performed By: #### G LULS #### Point of Care testing , Sodium [Moles/Vol] 136 mmol/L Normal 136-145 [facility] Comment on above: Performed By: #### G LULS #### Point of Care testing , Urea nitrogen [Mass/Vol] 18 mg/dL Normal 7-25 [facility] Comment on above: Performed By: #### G LULS #### Point of Care testing , Complete Blood Count Auto Di ffon 02-11-2023 Basophils (Bld) [#/Vol] 0.0 10*3/uL Normal 0.0-0.2 [facility] Comment on above: Result Comment: PERF ORMED BY: [place] [address] [place] [address] PATHOLOGIST EIGHT SECTION BLOWER FARRAH PAUL M.D. Performed By: #### G LULS #### Point of Care testing , Basophils/100 WBC (Bld) 0.3 % Normal . [facility] Comment on above: Performed By: #### G LULS #### Point of Care testing , Eosinophils (Bld) [#/Vol] 0.7 10*3/uL High 0.0-0.45 [facility] Comment on above: Performed By: #### G LULS #### Point of Care testing , Eosinophils/100 WBC (Bld) 5.1 % Normal . [facility] Comment on above: Performed By: #### G LULS #### Point of Care testing , Erythrocyte distribution width (RBC) [Ratio] 15.2 % High 12.0-14.8 [facility] Comment on above: Performed By: #### G LULS #### Point of Care testing , Hematocrit (Bld) [Volume fraction] 28.7 % Low 38.8-50.0 [facility] Comment on above: Performed By: #### G LULS #### Point of Care testing , Hemoglobin (Bld) [Mass/Vol] 9.3 g/dL Low 13.0-17.0 [facility] Comment on above: Performed By: #### G LULS #### Point of Care testing , Lymphocytes (Bld) [#/Vol] 1.0 10*3/uL Normal 1.00-4.8 [facility] Comment on above: Performed By: #### G LULS #### Point of Care testing , Lymphocytes/100 WBC (Bld) 7.5 % Normal . [facility] Comment on above: Performed By: #### G LULS #### Point of Care testing , MCH (RBC) [Entitic mass] 25.8 pg Low 27.5-35.2 [facility] Comment on above: Performed By: #### G LULS #### Point of Care testing , MCV (RBC) [Entitic vol] 79.3 fL Low 83.5-101 [facility] Comment on above: Performed By: #### G LULS #### Point of Care testing , Mean Corpuscular HGB Conc 32.5 g/dL Normal 32.5-35.6 [facility] Comment on above: Performed By: #### G LULS #### Point of Care testing , Monocytes (Bld) [#/Vol] 0.8 10*3/uL Normal 0.0-0.8 [facility] Comment on above: Performed By: #### G LULS #### Point of Care testing , Monocytes/100 WBC (Bld) 6.0 % Normal . [facility] Comment on above: Performed By: #### G LULS #### Point of Care testing , Neutrophils (Bld) [#/Vol] 10.5 10*3/uL High 1.8-7.7 [facility] Comment on above: Performed By: #### G LULS #### Point of Care testing , Neutrophils/100 WBC (Bld) 81.1 % Normal . [facility] Comment on above: Performed By: #### G LULS #### Point of Care testing , NRBC% 0.0 /100{WBC} Normal 0-0.5 [facility] Comment on above: Performed By: #### G LULS #### Point of Care testing , Platelet mean volume (Bld) [Entitic vol] 6.4 fL Low 6.6-10.1 [facility] Comment on above: Performed By: #### G LULS #### Point of Care testing , Platelets (Bld) [#/Vol] 339 10*3/uL Normal 150-450 [facility] Comment on above: Performed By: #### G LULS #### Point of Care testing , RBC (Bld) [#/Vol] 3.62 10*6/uL Low 3.90-5.60 [facility] Comment on above: Performed By: #### G LULS #### Point of Care testing , WBC (Bld) [#/Vol] 12.9 10*3/uL High 4.1-10.5 [facility] Comment on above: Performed By: #### G LULS #### Point of Care testing , Glucose Poct Glucometerson 1 04-13-2022 Commemt1 Glu2: Cleaned Meter Normal [facility] Comment on above: Result Comment: PERF ORMED BY: [facility] [address] [place] [address] PATHOLOGIST EIGHT SECTION BLOWER FARRAH PAUL M.D. Performed By: #### G LULS #### Point of Care testing , Glucose [Mass/Vol] 174 mg/dL Normal [facility] Comment on above: Result Comment: [facility] Glucose Reference Range is dependent on time and content of last meal. Glucose of more than 200 mg/dL in a nonstressed, ambulatory subject supports the diagnosis of Diabetes Mellitus. Performed By: #### G LULS #### Point of Care testing , Glucose [Mass/Vol] 182 mg/dL Normal [facility] Comment on above: Result Comment: [facility] om Glucose Reference Range is dependent on time and content of last meal. Glucose of more than 200 mg/dL in a nonstressed, ambulatory subject supports the diagnosis of Diabetes Mellitus. PERFORMED BY: [address] [place] [address] PATHOLOGIST EIGHT SECTION BLOWER FARRAH PAUL M.D. Performed By: #### G LULS #### Point of Care testing , Commemt1 Glu2: Cleaned Meter Normal [facility] Comment on above: Result Comment: PERF ORMED BY: [place] [address] PATHOLOGIST EIGHT SECTION BLOWER FARRAH PAUL M.D. Performed By: #### G LULS #### Point of Care testing , Glucose [Mass/Vol] 169 mg/dL Normal [facility] Comment on above: Result Comment: [facility] om Glucose Reference Range is dependent on time and content of last meal. Glucose of more than 200 mg/dL in a nonstressed, ambulatory subject supports the diagnosis of Diabetes Mellitus. Performed By: #### G LULS #### Point of Care testing , Glucose [Mass/Vol] 144 mg/dL Normal [facility] Comment on above: Result Comment: [facility] om Glucose Reference Range is dependent on time and content of last meal. Glucose of more than 200 mg/dL in a nonstressed, ambulatory subject supports the diagnosis of Diabetes Mellitus. PERFORMED BY: [address] [place] [id number] PATHOLOGIST EIGHT SECTION BLOWER FARRAH PAUL M.D. Performed By: #### G LULS #### Point of Care testing , Commemt1 Glu2: Cleaned Meter Normal [facility] Comment on above: Result Comment: PERF ORMED BY: [address] [place] [id number] PATHOLOGIST EIGHT SECTION BLOWER FARRAH PAUL M.D. Performed By: #### G MAURICIOLS #### Point of Care testing , Glucose [Mass/Vol] 125 mg/dL Normal [facility] Comment on above: Result Comment: [facility] Glucose Reference Range is dependent on time [...] RESISTANT TO ALL B-LACTAM DRUGS. PERFORMED BY: [facility] [address] [place] [place] [address] PATHOLOGIST EIGHT SECTION BLOWER FARRAH PAUL M.D. Normal [facility] Comment on above: Performed By: #### G LULS #### Point of Care testing , Basic Metabolic Panelon 01-27 Anion gap [Moles/Vol] 10.1 mmol/L Normal 6.0-15.0 [facility] Comment on above: Performed By: #### G LULS #### Point of Care testing , Calcium [Mass/Vol] 8.1 mg/dL Low 8.6-10.3 [facility] Comment on above: Performed By: #### G LULS #### Point of Care testing , Chloride [Moles/Vol] 106 mmol/L Normal 98-107 [facility] Comment on above: Performed By: #### G LULS #### Point of Care testing , CO2 [Moles/Vol] 25.3 mmol/L Normal 21.0-31.0 [facility] Comment on above: Performed By: #### G LULS #### Point of Care testing , Creatinine [Mass/Vol] 1.21 mg/dL Normal 0.70-1.30 [facility] Comment on above: Performed By: #### G LULS #### Point of Care testing , Creatinine Clr Calc Pharmacy 80.32 Normal [facility] Comment on above: Result Comment: PERF ORMED BY: [address] [place] [address] PATHOLOGIST EIGHT SECTION BLOWER FARRAH APUL M.D. Performed By: #### G LULS #### Point of Care testing , GFR/1.73 sq M.predicted MDRD (S/P/Bld) [Vol rate/Area] mL/min/{1.73_m2} Normal [facility] Comment on above: Performed By: #### G LULS #### Point of Care testing , Glucose [Mass/Vol] 109 mg/dL High 70-100 [facility] Comment on above: Result Comment: Fertile Glucose Reference Range is dependent on time and content of last meal. Glucose of more than 200 mg/dL in a nonstressed, ambulatory subject supports the diagnosis of Diabetes Mellitus. ADA recommended reference range Performed By: #### G LULS #### Point of Care testing , Potassium [Moles/Vol] 4.4 mmol/L Normal 3.5-5.1 [facility] Comment on above: Performed By: #### G LULS #### Point of Care testing , Sodium [Moles/Vol] 137 mmol/L Normal 136-145 [facility] Comment on above: Performed By: #### G LULS #### Point of Care testing , Urea nitrogen [Mass/Vol] 20 mg/dL Normal 7-25 [facility] Comment on above: Performed By: #### G LULS #### Point of Care testing , Coagulation Profileon 2022 aPTT Coag (Bld) [Time] 30.4 s Normal 25.1-36.5 [facility] Comment on above: Result Comment: A he matocrit value greater than 55% may lead to inaccurate results in coagulation testing. Patients having hematocrit values >55% require a special collection tube for coagulation studies. Please contact the laboratory at [phone] for redraw instructions. PERFORMED BY: [address] [place] [address] PATHOLOGIST EIGHT SECTION BLOWER FARRAH PAUL M.D. Performed By: #### G LULS #### Point of Care testing , INR Coag (PPP) [Relative time] 1.2 {INR} Normal [facility] Comment on above: Result Comment: [...] (PPP) [Time] 14.0 s High 9.0-12.9 [facility] Comment on above: Result Comment: A he matocrit value greater than 55% may lead to inaccurate results in coagulation testing. Patients having hematocrit values >55% require a special collection tube for coagulation studies. Please contact the laboratory at [phone] for redraw instructions. Performed By: #### G LULS #### Point of Care testing , Complete Blood Count Auto Di ffon 02-10-2023 Basophils (Bld) [#/Vol] 0.0 10*3/uL Normal 0.0-0.2 [facility] Comment on above: Result Comment: PERF ORMED BY: [facility] [address] PATHOLOGIST EIGHT SECTION BLOWER FARRAH PAUL M.D. Performed By: #### G LULS #### Point of Care testing , Basophils/100 WBC (Bld) 0.3 % Normal . [facility] Comment on above: Performed By: #### G LULS #### Point of Care testing , Eosinophils (Bld) [#/Vol] 0.8 10*3/uL High 0.0-0.45 [facility] Comment on above: Performed By: #### G LULS #### Point of Care testing , Eosinophils/100 WBC (Bld) 7.1 % Normal . [facility] Comment on above: Performed By: #### G LULS #### Point of Care testing , Erythrocyte distribution width (RBC) [Ratio] 15.2 % High 12.0-14.8 [facility] Comment on above: Performed By: #### G LULS #### Point of Care testing , Hematocrit (Bld) [Volume fraction] 24.8 % Low 38.8-50.0 [facility] Comment on above: Performed By: #### G LULS #### Point of Care testing , Hemoglobin (Bld) [Mass/Vol] 8.2 g/dL Low 13.0-17.0 [facility] Comment on above: Performed By: #### G LULS #### Point of Care testing , Lymphocytes (Bld) [#/Vol] 1.5 10*3/uL Normal 1.00-4.8 [facility] Comment on above: Performed By: #### G LULS #### Point of Care testing , Lymphocytes/100 WBC (Bld) 13.9 % Normal . [facility] Comment on above: Performed By: #### G LULS #### Point of Care testing , MCH (RBC) [Entitic mass] 25.7 pg Low 27.5-35.2 [facility] Comment on above: Performed By: #### G LULS #### Point of Care testing , MCV (RBC) [Entitic vol] 78.1 fL Low 83.5-101 [facility] Comment on above: Performed By: #### G LULS #### Point of Care testing , Mean Corpuscular HGB Conc 32.9 g/dL Normal 32.5-35.6 [facility] Comment on above: Performed By: #### G LULS #### Point of Care testing , Monocytes (Bld) [#/Vol] 0.9 10*3/uL High 0.0-0.8 [facility] Comment on above: Performed By: #### G LULS #### Point of Care testing , Monocytes/100 WBC (Bld) 8.3 % Normal . [facility] Comment on above: Performed By: #### G LULS #### Point of Care testing , Neutrophils (Bld) [#/Vol] 7.5 10*3/uL Normal 1.8-7.7 [facility] Comment on above: Performed By: #### G LULS #### Point of Care testing , Neutrophils/100 WBC (Bld) 70.4 % Normal . [facility] Comment on above: Performed By: #### G LULS #### Point of Care testing , NRBC% 0.1 /100{WBC} Normal 0-0.5 [facility] Comment on above: Performed By: #### G LULS #### Point of Care testing , Platelet mean volume (Bld) [Entitic vol] 6.3 fL Low 6.6-10.1 [facility] Comment on above: Performed By: #### G LULS #### Point of Care testing , Platelets (Bld) [#/Vol] 318 10*3/uL Normal 150-450 [facility] Comment on above: Performed By: #### G LULS #### Point of Care testing , RBC (Bld) [#/Vol] 3.18 10*6/uL Low 3.90-5.60 [facility] Comment on above: Performed By: #### G LULS #### Point of Care testing , WBC (Bld) [#/Vol] 10.7 10*3/uL High 4.1-10.5 [facility] Comment on above: Performed By: #### G LULS #### Point of Care testing , ECG 12 lead ECGon 02-10-2023 ECG 12 lead ECG [facility] Main [place] [address] [place] [address] Electrocardiograph Report Signed Patient: Ganga Stinson MR#: [id number] : 1960 Acct:[id number] Age/Sex: 62 / M ADM Date: 02/06/23 Loc: Room: [address] [place] [address] Type: ADM IN Attending Dr: Suzy Douglas [...] change was found Confirmed by DOMENICA NAZARIO [facility] ([id number] on 02/10/2023 12:17:27 PM Referred By: Electronically Signed By:PARVIN PASCUAL MD [facility] Transcribed By: MUS Signed By Rafi Pascual MD 02/10/23 1217 Normal [facility] Glucose Poct Glucometerson 1 04-12-2022 Glucose [Mass/Vol] 83 mg/dL Normal [facility] Comment on above: Result Comment: Fertile Glucose Reference Range is dependent on time and content of last meal. Glucose of more than 200 mg/dL in a nonstressed, ambulatory subject supports the diagnosis of Diabetes Mellitus. PERFORMED BY: [place] [address] PATHOLOGIST EIGHT SECTION BLOWER FARRAH PAUL M.D. Performed By: #### G LULS #### Point of Care testing , Commemt1 Glu2: Cleaned Meter Normal [facility] Comment on above: Result Comment: PERF ORMED BY: [address] [place] [id number] PATHOLOGIST EIGHT SECTION BLOWER FARRAH PAUL M.D. Performed By: #### G LULS #### Point of Care testing , Glucose [Mass/Vol] 79 mg/dL Normal [facility] Comment on above: Result Comment: Fertile om Glucose Reference Range is dependent on time and content of last meal. Glucose of more than 200 mg/dL in a nonstressed, ambulatory subject supports the diagnosis of Diabetes Mellitus. Performed By: #### G LULS #### Point of Care testing , Glucose [Mass/Vol] 82 mg/dL Normal [facility] Comment on above: Result Comment: Fertile om Glucose Reference Range is dependent on time and content of last meal. Glucose of more than 200 mg/dL in a nonstressed, ambulatory subject supports the diagnosis of Diabetes Mellitus. PERFORMED BY: [address] [place] [id number] PATHOLOGIST EIGHT SECTION BLOWER FARRAH PAUL M.D. Performed By: #### G LULS #### Point of Care testing , Glucose [Mass/Vol] 98 mg/dL Normal [facility] Comment on above: Result Comment: Fertile om Glucose Reference Range is dependent on time and content of last meal. Glucose of more than 200 mg/dL in a nonstressed, ambulatory subject supports the diagnosis of Diabetes Mellitus. PERFORMED BY: [address] [place] [id number] PATHOLOGIST EIGHT SECTION BLOWER FARRAH PAUL M.D. Performed By: #### G LULS #### Point of Care testing , Glucose [Mass/Vol] 119 mg/dL Normal [facility] Comment on above: Result Comment: Fertile om Glucose Reference Range is dependent on time and content of last meal. Glucose of more than 200 mg/dL in a nonstressed, ambulatory subject supports the diagnosis of Diabetes Mellitus. PERFORMED BY: [address] [place] [id number] PATHOLOGIST EIGHT SECTION BLOWER FARRAH PAUL M.D. Performed By: #### G BHARATI #### Point of Care testing , Gram Stainon 02-10-2023 Microscopic observation Gram stain Nom (Unsp spec) Comment deep wound culture Gram Stain Result 1+ White Blood Cells Rare Gram Positive Cocci PERFORMED BY: [facility] [place]MO [place] [address] PATHOLOGIST EIGHT SECTION BLOWER FARRAH PAUL M.D. Normal [facility] Comment on above: Performed By: #### G LUPAM #### Point of Care testing , Martín 02-10-2023 L ------- Specimen: [id number] Received: 02/11/23 Status: ROSIO Rajput Num: [id number] Spec Type: Surgical Subm Dr: Jonathan Moffett DPM Tissues: A DIGIT AMPUTATION (LT 4TH/5TH TOE/NEC TISSUE) Procedures: HE/2, Gross/Micro L4, Decalcification Age/ Patient Sex Location Account Attending Physician Ganga Stinson/Sam [id number] Suzy Douglas MD SPEC NUM: [id number] RECD: 02/11/23 STATUS: ROSIO RAJPUT NUM: [id number] NAYLA: 02/10/23- SUBM DR: Jonathan Moffett DPM [...] pardo-white to black-brown, heterogeneous, diffluent, soft tissue. Railroad Wheels And Axle Inspector sections are submitted in two cassettes labeled as follows: A1 resection margins of left metatarsals four and five, en face, following fixation and decalcification, A2 account manager sales representative sections of possible gangrenous soft tissue. Specimen: [id number] Received: 02/11/23 Status: ROSIO Rajput Num: [id number] Spec Type: Surgical Subm Dr: Jonathan Moffett DPM Tissues: A DIGIT AMPUTATION (LT 4TH/5TH TOE/NEC TISSUE) Procedures: HE/2, Gross/Micro L4, Decalcification Patient: Ganga Stinson [id number] (Continued) Specimen: [id number] Received: 02/11/23 (Continued) Signed (signature on file) Parag Buenrostro MD 02/12/23 1144 Specimen: [id number] Received: 02/11/23 Status: ROSIO Rajput Num: [id number] Spec Type: Surgical Subm Dr: Jonathan Moffett DPM Tissues: A DIGIT AMPUTATION (LT 4TH/5TH TOE/NEC TISSUE) Procedures: HE/2, Gross/Micro L4, Decalcification Patient: Sameer Stinsoncisco Evans [id number] (Continued) Specimen: [id number] Received: 02/11/23 (Continued) CPT Codes 31709 Specimen: [id number] Received: 02/11/23 Status: ROSIO Rajput Num: [id number] Spec Type: Surgical Subm Dr: Jonathan Moffett DPM Tissues: A DIGIT AMPUTATION (LT 4TH/5TH TOE/NEC TISSUE) Procedures: HE/2, Gross/Micro L4, Decalcification Patient: Ganga Stinson [id number] (Continued) Signed (signature on file) Parag Buenrostro MD 02/12/23 1144 Normal [facility] LeukoReduced RBCon 3 LeukoReduced RBC TRANSFUSED 02/10/23 1339 Normal [facility] Type and Screenon 02-10-2023 ABO and Rh group Nom (Bld) Blood group A Rh(D) negative Normal [facility] Comment on above: Order Comment: Trans fuse now? Y Number of units to transfuse now? 1 Result Comment: PERF ORMED BY: [facility] [address] [facility] [place] [address] PATHOLOGIST EIGHT SECTION BLOWER FARRAH PAUL M.D. XR foot LT 2Von 02-10-2023 XR foot LT 2V [facility] Main [place] [address] [place] [address] XRay Report Signed Patient: Ganga Stinson MR#: [id number] : 1960 Acct:[id number] Age/Sex: 62 / M ADM Date: 02/06/23 Loc: Room: [address] [place] [address] Type: ADM IN Attending Dr: Suzy Douglas [...] Canelo Red M.D.02/10/2023 9:36 PM Dictation Location: [place] [address] Transcribed By: [facility] 02/10/232135 Dictated By: Canelo Red II, MD 02/10/232133 Signed By: 02/10/232135 Normal [facility] Basic Metabolic Panelon 01-27 Anion gap [Moles/Vol] 8.5 mmol/L Normal 6.0-15.0 [facility] Comment on above: Performed By: #### G LULS #### Point of Care testing , Calcium [Mass/Vol] 7.9 mg/dL Low 8.6-10.3 [facility] Comment on above: Performed By: #### G LULS #### Point of Care testing , Chloride [Moles/Vol] 106 mmol/L Normal 98-107 [facility] Comment on above: Performed By: #### G LULS #### Point of Care testing , CO2 [Moles/Vol] 24.9 mmol/L Normal 21.0-31.0 [facility] Comment on above: Performed By: #### G MAURICIOLS #### Point of Care testing , Creatinine [Mass/Vol] 1.20 mg/dL Normal 0.70-1.30 [facility] Comment on above: Performed By: #### G LULS #### Point of Care testing , Creatinine Clr Calc Pharmacy 82.31 Normal [facility] Comment on above: Result Comment: PERF ORMED BY: [facility] [address] [place] [address] PATHOLOGIST EIGHT SECTION BLOWER FARRAH PAUL M.D. Performed By: #### G MAURICIOLS #### Point of Care testing , GFR/1.73 sq M.predicted MDRD (S/P/Bld) [Vol rate/Area] mL/min/{1.73_m2} Normal [facility] Comment on above: Performed By: #### G LULS #### Point of Care testing , Glucose [Mass/Vol] 181 mg/dL High 70-100 [facility] Comment on above: Result Comment: [facility] Glucose Reference Range is dependent on time and content of last meal. Glucose of more than 200 mg/dL in a nonstressed, ambulatory subject supports the diagnosis of Diabetes Mellitus. ADA recommended reference range Performed By: #### G LULS #### Point of Care testing , Potassium [Moles/Vol] 4.4 mmol/L Normal 3.5-5.1 [facility] Comment on above: Performed By: #### G LULS #### Point of Care testing , Sodium [Moles/Vol] 135 mmol/L Low 136-145 [facility] Comment on above: Performed By: #### G MAURICIOLS #### Point of Care testing , Urea nitrogen [Mass/Vol] 18 mg/dL Normal 7-25 [facility] Comment on above: Performed By: #### G MAURICIOLS #### Point of Care testing , Complete Blood Count Auto Di ffon 02-09-2023 Basophils (Bld) [#/Vol] 0.1 10*3/uL Normal 0.0-0.2 [facility] Comment on above: Result Comment: PERF ORMED BY: [place] [address] PATHOLOGIST EIGHT SECTION BLOWER FARRAH PAUL M.D. Performed By: #### G LULS #### Point of Care testing , Basophils/100 WBC (Bld) 1.1 % Normal . [facility] Comment on above: Performed By: #### G LULS #### Point of Care testing , Eosinophils (Bld) [#/Vol] 0.6 10*3/uL High 0.0-0.45 [facility] Comment on above: Performed By: #### G LULS #### Point of Care testing , Eosinophils/100 WBC (Bld) 5.6 % Normal . [facility] Comment on above: Performed By: #### G LULS #### Point of Care testing , Erythrocyte distribution width (RBC) [Ratio] 15.0 % High 12.0-14.8 [facility] Comment on above: Performed By: #### G LULS #### Point of Care testing , Hematocrit (Bld) [Volume fraction] 24.1 % Low 38.8-50.0 [facility] Comment on above: Performed By: #### G LULS #### Point of Care testing , Hemoglobin (Bld) [Mass/Vol] 7.8 g/dL Low 13.0-17.0 [facility] Comment on above: Performed By: #### G LULS #### Point of Care testing , Lymphocytes (Bld) [#/Vol] 1.3 10*3/uL Normal 1.00-4.8 [facility] Comment on above: Performed By: #### G LULS #### Point of Care testing , Lymphocytes/100 WBC (Bld) 11.7 % Normal . [facility] Comment on above: Performed By: #### G LULS #### Point of Care testing , MCH (RBC) [Entitic mass] 25.6 pg Low 27.5-35.2 [facility] Comment on above: Performed By: #### G LULS #### Point of Care testing , MCV (RBC) [Entitic vol] 78.8 fL Low 83.5-101 [facility] Comment on above: Performed By: #### G LULS #### Point of Care testing , Mean Corpuscular HGB Conc 32.5 g/dL Normal 32.5-35.6 [facility] Comment on above: Performed By: #### G LULS #### Point of Care testing , Monocytes (Bld) [#/Vol] 0.7 10*3/uL Normal 0.0-0.8 [facility] Comment on above: Performed By: #### G LULS #### Point of Care testing , Monocytes/100 WBC (Bld) 6.5 % Normal . [facility] Comment on above: Performed By: #### G LULS #### Point of Care testing , Neutrophils (Bld) [#/Vol] 8.1 10*3/uL High 1.8-7.7 [facility] Comment on above: Performed By: #### G LULS #### Point of Care testing , Neutrophils/100 WBC (Bld) 75.1 % Normal . [facility] Comment on above: Performed By: #### G LULS #### Point of Care testing , NRBC% 0.0 /100{WBC} Normal 0-0.5 [facility] Comment on above: Performed By: #### G LULS #### Point of Care testing , Platelet mean volume (Bld) [Entitic vol] 6.3 fL Low 6.6-10.1 [facility] Comment on above: Performed By: #### G LULS #### Point of Care testing , Platelets (Bld) [#/Vol] 311 10*3/uL Normal 150-450 [facility] Comment on above: Performed By: #### G LULS #### Point of Care testing , RBC (Bld) [#/Vol] 3.05 10*6/uL Low 3.90-5.60 [facility] Comment on above: Performed By: #### G LULS #### Point of Care testing , WBC (Bld) [#/Vol] 10.8 10*3/uL High 4.1-10.5 [facility] Comment on above: Performed By: #### G LULS #### Point of Care testing , Glucose Poct Glucometerson 04-11-2022 Glucose [Mass/Vol] 254 mg/dL Normal [facility] Comment on above: Result Comment: Fertile om Glucose Reference Range is dependent on time and content of last meal. Glucose of more than 200 mg/dL in a nonstressed, ambulatory subject supports the diagnosis of Diabetes Mellitus. PERFORMED BY: [address] [address] PATHOLOGIST EIGHT SECTION BLOWER FARRAH PAUL M.D. Performed By: #### G LULS #### Point of Care testing , Glucose [Mass/Vol] 224 mg/dL Normal [facility] Comment on above: Result Comment: Fertile om Glucose Reference Range is dependent on time and content of last meal. Glucose of more than 200 mg/dL in a nonstressed, ambulatory subject supports the diagnosis of Diabetes Mellitus. PERFORMED BY: [address] [address] PATHOLOGIST EIGHT SECTION BLOWER FARRAH PAUL M.D. Performed By: #### G LULS #### Point of Care testing , Glucose [Mass/Vol] 184 mg/dL Normal [facility] Comment on above: Result Comment: Fertile om Glucose Reference Range is dependent on time and content of last meal. Glucose of more than 200 mg/dL in a nonstressed, ambulatory subject supports the diagnosis of Diabetes Mellitus. PERFORMED BY: [facility] [address] [facility] [place] [address] PATHOLOGIST EIGHT SECTION BLOWER FARRAH PAUL M.D. Performed By: #### G LULS #### Point of Care testing , Glucose [Mass/Vol] 159 mg/dL Normal [facility] Comment on above: Result Comment: Fertile om Glucose Reference Range is dependent on time and content of last meal. Glucose of more than 200 mg/dL in a nonstressed, ambulatory subject supports the diagnosis of Diabetes Mellitus. PERFORMED BY: [address] [address] PATHOLOGIST EIGHT SECTION BLOWER FARRAH PAUL M.D. Performed By: #### G LULS #### Point of Care testing , Hemoglobin and Hematocriton 02-09-2023 Hematocrit (Bld) [Volume fraction] 25.1 % Low 38.8-50.0 [facility] Comment on above: Result Comment: PERF ORMED BY: [address] [address] PATHOLOGIST EIGHT SECTION BLOWER FARRAH PAUL M.D. Performed By: #### G LULS #### Point of Care testing , Hemoglobin (Bld) [Mass/Vol] 8.2 g/dL Low 13.0-17.0 [facility] Comment on above: Performed By: #### G LULS #### Point of Care testing , US arterial pvr rest Brennen US arterial pvr rest [facility] Main [address] [address] Ultrasound Report Signed Patient: Ganga Stinson MR#: [id number] : 1960 Acct:[id number] Age/Sex: 62 / M ADM Date: 02/06/23 Loc: Room: [address] [place] [address] Type: ADM IN Attending Dr: Suzy Douglas [...] Jesusita Navarro MD02/09/2023 12:18 PM Dictation Location: [facility] Tech: Coni Saenz Transcribed By: [facility] 02/09/231217 Dictated By: Jesusita Navarro MD 02/09/231216 Signed By: 02/09/231217 Normal [facility] Basic Metabolic Panel 01-27 Anion gap [Moles/Vol] 11.3 mmol/L Normal 6.0-15.0 [facility] Comment on above: Performed By: #### B MP, PAB, CBC #### [facility] [address] Calcium [Mass/Vol] 8.3 mg/dL Low 8.6-10.3 [facility] Comment on above: Performed By: #### B MP, PAB, CBC #### [facility] [address] [place] [id number] [place] Chloride [Moles/Vol] 110 mmol/L High 98-107 [facility] Comment on above: Performed By: #### B MP, PAB, CBC #### [facility] [address] [place] [id number] [place] CO2 [Moles/Vol] 21.0 mmol/L Normal 21.0-31.0 [facility] Comment on above: Performed By: #### B MP, PAB, CBC #### [facility] [address] [place] [id number] [place] Creatinine [Mass/Vol] 1.24 mg/dL Normal 0.70-1.30 [facility] Comment on above: Performed By: #### B MP, PAB, CBC #### [facility] [address] [place] [phone] [place] Creatinine Clr Calc Pharmacy 79.62 Normal [facility] Comment on above: Performed By: #### B MP, PAB, CBC #### [facility] [address] [place] [address] [place] GFR/1.73 sq M.predicted MDRD (S/P/Bld) [Vol rate/Area] mL/min/{1.73_m2} Normal [facility] Comment on above: Performed By: #### B MP, PAB, CBC #### [facility] [address] Glucose [Mass/Vol] 86 mg/dL Normal 70-100 [facility] Comment on above: Result Comment: Fertile Glucose Reference Range is dependent on time and content of last meal. Glucose of more than 200 mg/dL in a nonstressed, ambulatory subject supports the diagnosis of Diabetes Mellitus. ADA recommended reference range Performed By: #### B MP, PAB, CBC #### [facility] [address] Potassium [Moles/Vol] 4.3 mmol/L Normal 3.5-5.1 [facility] Comment on above: Performed By: #### B MP, PAB, CBC #### [place] [address] [place] Sodium [Moles/Vol] 138 mmol/L Normal 136-145 [facility] Comment on above: Performed By: #### B MP, PAB, CBC #### [facility] [address] [place] [address] [place] Urea nitrogen [Mass/Vol] 21 mg/dL Normal 7-25 [facility] Comment on above: Performed By: #### B MP, PAB, CBC #### [facility] [address] Complete Blood Count Auto Di ffon 02-08-2023 Basophils (Bld) [#/Vol] 0.0 10*3/uL Normal 0.0-0.2 [facility] Comment on above: Result Comment: PERF ORMED BY: [place] [address] PATHOLOGIST EIGHT SECTION BLOWER FARRAH PAUL M.D. Performed By: #### B MP, PAB, CBC #### [facility] [address] [place] [address] [place] Basophils/100 WBC (Bld) 0.4 % Normal . [facility] Comment on above: Performed By: #### B MP, PAB, CBC #### [facility] [address] Eosinophils (Bld) [#/Vol] 0.6 10*3/uL High 0.0-0.45 [facility] Comment on above: Performed By: #### B MP, PAB, CBC #### [facility] [address] [place] [address] [place] Eosinophils/100 WBC (Bld) 5.8 % Normal . [facility] Comment on above: Performed By: #### B MP, PAB, CBC #### [address] Erythrocyte distribution width (RBC) [Ratio] 15.2 % High 12.0-14.8 [facility] Comment on above: Performed By: #### B MP, PAB, CBC #### [facility] [address] [place] [address] [place] Hematocrit (Bld) [Volume fraction] 25.0 % Low 38.8-50.0 [facility] Comment on above: Performed By: #### B MP, PAB, CBC #### [place] [address] [place] Hemoglobin (Bld) [Mass/Vol] 8.1 g/dL Low 13.0-17.0 [facility] Comment on above: Performed By: #### B MP, PAB, CBC #### [facility] [address] [place] [address] [place] Lymphocytes (Bld) [#/Vol] 1.5 10*3/uL Normal 1.00-4.8 [facility] Comment on above: Performed By: #### B MP, PAB, CBC #### [facility] [address] [place] [address] [place] Lymphocytes/100 WBC (Bld) 14.3 % Normal . [facility] Comment on above: Performed By: #### B MP, PAB, CBC #### [facility] [address] MCH (RBC) [Entitic mass] 25.5 pg Low 27.5-35.2 [facility] Comment on above: Performed By: #### B MP, PAB, CBC #### [address] MCV (RBC) [Entitic vol] 78.6 fL Low 83.5-101 [facility] Comment on above: Performed By: #### B MP, PAB, CBC #### [address] Mean Corpuscular HGB Conc 32.5 g/dL Normal 32.5-35.6 [facility] Comment on above: Performed By: #### B MP, PAB, CBC #### [address] Monocytes (Bld) [#/Vol] 0.9 10*3/uL High 0.0-0.8 [facility] Comment on above: Performed By: #### B MP, PAB, CBC #### [address] Monocytes/100 WBC (Bld) 9.0 % Normal . [facility] Comment on above: Performed By: #### B MP, PAB, CBC #### [address] Neutrophils (Bld) [#/Vol] 7.3 10*3/uL Normal 1.8-7.7 [facility] Comment on above: Performed By: #### B MP, PAB, CBC #### [address] Neutrophils/100 WBC (Bld) 70.5 % Normal . [facility] Comment on above: Performed By: #### B MP, PAB, CBC #### [address] NRBC% 0.0 /100{WBC} Normal 0-0.5 [facility] Comment on above: Performed By: #### B MP, PAB, CBC #### [address] Platelet mean volume (Bld) [Entitic vol] 6.5 fL Low 6.6-10.1 [facility] Comment on above: Performed By: #### B MP, PAB, CBC #### [address] Platelets (Bld) [#/Vol] 308 10*3/uL Normal 150-450 [facility] Comment on above: Performed By: #### B MP, PAB, CBC #### [address] RBC (Bld) [#/Vol] 3.18 10*6/uL Low 3.90-5.60 [facility] Comment on above: Performed By: #### B MP, PAB, CBC #### [address] WBC (Bld) [#/Vol] 10.4 10*3/uL Normal 4.1-10.5 [facility] Comment on above: Performed By: #### B MP, PAB, CBC #### [address] Glucose Poct Glucometerson 1 04-10-2022 Glucose [Mass/Vol] 202 mg/dL Normal [facility] Comment on above: Result Comment: [facility] Glucose Reference Range is dependent on time and content of last meal. Glucose of more than 200 mg/dL in a nonstressed, ambulatory subject supports the diagnosis of Diabetes Mellitus. PERFORMED BY: [place] [address] PATHOLOGIST EIGHT SECTION BLOWER FARRAH PAUL M.D. Performed By: #### G BHARATI #### Point of Care testing , Glucose [Mass/Vol] 192 mg/dL Normal [facility] Comment on above: Result Comment: [facility] Glucose Reference Range is dependent on time and content of last meal. Glucose of more than 200 mg/dL in a nonstressed, ambulatory subject supports the diagnosis of Diabetes Mellitus. PERFORMED BY: [place] [address] PATHOLOGIST EIGHT SECTION BLOWER FARRAH PAUL M.D. Performed By: #### G LULS #### Point of Care testing , Commemt1 Glu2: Cleaned Meter Normal [facility] Comment on above: Result Comment: PERF ORMED BY: [address] [address] PATHOLOGIST EIGHT SECTION BLOWER FARRAH PAUL M.D. Performed By: #### G LULS #### Point of Care testing , Glucose [Mass/Vol] 184 mg/dL Normal [facility] Comment on above: Result Comment: [facility] om Glucose Reference Range is dependent on time and content of last meal. Glucose of more than 200 mg/dL in a nonstressed, ambulatory subject supports the diagnosis of Diabetes Mellitus. Performed By: #### G LULS #### Point of Care testing , Commemt1 Glu2: Cleaned Meter Normal [facility] Comment on above: Result Comment: PERF ORMED BY: [place] [address] PATHOLOGIST EIGHT SECTION BLOWER FARRAH PAUL M.D. Performed By: #### G LULS #### Point of Care testing , Glucose [Mass/Vol] 95 mg/dL Normal [facility] Comment on above: Result Comment: [facility] om Glucose Reference Range is dependent on time and content of last meal. Glucose of more than 200 mg/dL in a nonstressed, ambulatory subject supports the diagnosis of Diabetes Mellitus. Performed By: #### G LULS #### Point of Care testing , MR foot LT wo sury 02-09-20 MR foot LT wo con [facility] Main [address] [address] MRI Report Signed Patient: Ganga Stinson MR#: [id number] : 1960 Acct:[id number] Age/Sex: 62 / M ADM Date: 02/06/23 Loc: Room: [address] [place] [address] Type: ADM IN Attending Dr: Suzy Douglas [...] Canelo Red M.D.02/08/2023 2:39 PM Dictation Location: [place] [address] Transcribed By: [facility] 02/08/23 143 Dictated By: Canelo Red II, MD 02/08/23 142 Signed By: 02/08/23 143 Normal [facility] Prealbuminon 02-08-2023 Prealbumin [Mass/Vol] 4.5 mg/dL Low 17.0-34.0 [facility] Comment on above: Result Comment: PERF ORMED BY: [place] [address] PATHOLOGIST EIGHT SECTION BLOWER FARRAH PAUL M.D. Performed By: #### B MP, PAB, CBC #### [address] Basic Metabolic Panelon 01-27 Anion gap [Moles/Vol] 10.9 mmol/L Normal 6.0-15.0 [facility] Comment on above: Performed By: #### G LULS #### Point of Care testing , Calcium [Mass/Vol] 8.0 mg/dL Low 8.6-10.3 [facility] Comment on above: Performed By: #### G LULS #### Point of Care testing , Chloride [Moles/Vol] 109 mmol/L High 98-107 [facility] Comment on above: Performed By: #### G LULS #### Point of Care testing , CO2 [Moles/Vol] 20.0 mmol/L Low 21.0-31.0 [facility] Comment on above: Performed By: #### G LULS #### Point of Care testing , Creatinine [Mass/Vol] 1.37 mg/dL High 0.70-1.30 [facility] Comment on above: Performed By: #### G LULS #### Point of Care testing , Creatinine Clr Calc Pharmacy 73.19 Normal [facility] Comment on above: Performed By: #### G LULS #### Point of Care testing , GFR/1.73 sq M.predicted MDRD (S/P/Bld) [Vol rate/Area] 58.689 mL/min/{1.73_m2} Normal [facility] Comment on above: Performed By: #### G LULS #### Point of Care testing , Glucose [Mass/Vol] 69 mg/dL Low 70-100 [facility] Comment on above: Result Comment: [facility] Glucose Reference Range is dependent on time and content of last meal. Glucose of more than 200 mg/dL in a nonstressed, ambulatory subject supports the diagnosis of Diabetes Mellitus. ADA recommended reference range Performed By: #### G LULS #### Point of Care testing , Potassium [Moles/Vol] 3.9 mmol/L Normal 3.5-5.1 [facility] Comment on above: Performed By: #### G LULS #### Point of Care testing , Sodium [Moles/Vol] 136 mmol/L Normal 136-145 [facility] Comment on above: Performed By: #### G LULS #### Point of Care testing , Urea nitrogen [Mass/Vol] 25 mg/dL Normal 7-25 [facility] Comment on above: Performed By: #### G LULS #### Point of Care testing , Anion gap [Moles/Vol] 9.4 mmol/L Normal 6.0-15.0 [facility] Comment on above: Performed By: #### G LULS #### Point of Care testing , Calcium [Mass/Vol] 8.0 mg/dL Low 8.6-10.3 [facility] Comment on above: Performed By: #### G LULS #### Point of Care testing , Chloride [Moles/Vol] 109 mmol/L High 98-107 [facility] Comment on above: Performed By: #### G LULS #### Point of Care testing , CO2 [Moles/Vol] 20.6 mmol/L Low 21.0-31.0 [facility] Comment on above: Performed By: #### G LULS #### Point of Care testing , Creatinine [Mass/Vol] 1.43 mg/dL High 0.70-1.30 [facility] Comment on above: Performed By: #### G LULS #### Point of Care testing , Creatinine Clr Calc Pharmacy 70.27 Normal [facility] Comment on above: Result Comment: PERF ORMED BY: [facility] [address] [facility] [place] [address] PATHOLOGIST EIGHT SECTION BLOWER FARRAH PAUL M.D. Performed By: #### G LULS #### Point of Care testing , GFR/1.73 sq M.predicted MDRD (S/P/Bld) [Vol rate/Area] 55.746 mL/min/{1.73_m2} Normal [facility] Comment on above: Performed By: #### G LULS #### Point of Care testing , Glucose [Mass/Vol] 136 mg/dL High 70-100 [facility] Comment on above: Result Comment: [facility] Glucose Reference Range is dependent on time and content of last meal. Glucose of more than 200 mg/dL in a nonstressed, ambulatory subject supports the diagnosis of Diabetes Mellitus. ADA recommended reference range Performed By: #### G LULS #### Point of Care testing , Potassium [Moles/Vol] 4.0 mmol/L Normal 3.5-5.1 [facility] Comment on above: Performed By: #### G LULS #### Point of Care testing , Sodium [Moles/Vol] 135 mmol/L Low 136-145 [facility] Comment on above: Performed By: #### G LULS #### Point of Care testing , Urea nitrogen [Mass/Vol] 27 mg/dL High 7-25 [facility] Comment on above: Performed By: #### G LULS #### Point of Care testing , C-Reactive Proteinon 023 C-Reactive Protein 18.3 mg/dL High 0.0-0.5 [facility] Comment on above: Result Comment: PERF ORMED BY: [facility] [place] [address] PATHOLOGIST EIGHT SECTION BLOWER FARRAH PAUL M.D. Performed By: #### G LULS #### Point of Care testing , Complete Blood Count Auto Di ffon 02-07-2023 Basophils (Bld) [#/Vol] 0.0 10*3/uL Normal 0.0-0.2 [facility] Comment on above: Result Comment: PERF ORMED BY: [facility] [address] [place] [address] PATHOLOGIST EIGHT SECTION BLOWER FARRAH PAUL M.D. Performed By: #### G LULS #### Point of Care testing , Basophils/100 WBC (Bld) 0.3 % Normal . [facility] Comment on above: Performed By: #### G LULS #### Point of Care testing , Eosinophils (Bld) [#/Vol] 0.6 10*3/uL High 0.0-0.45 [facility] Comment on above: Performed By: #### G LULS #### Point of Care testing , Eosinophils/100 WBC (Bld) 5.2 % Normal . [facility] Comment on above: Performed By: #### G LULS #### Point of Care testing , Erythrocyte distribution width (RBC) [Ratio] 14.8 % Normal 12.0-14.8 [facility] Comment on above: Performed By: #### G LULS #### Point of Care testing , Hematocrit (Bld) [Volume fraction] 21.3 % Low 38.8-50.0 [facility] Comment on above: Performed By: #### G LULS #### Point of Care testing , Hemoglobin (Bld) [Mass/Vol] 6.9 g/dL Low 13.0-17.0 [facility] Comment on above: Performed By: #### G LULS #### Point of Care testing , Lymphocytes (Bld) [#/Vol] 1.6 10*3/uL Normal 1.00-4.8 [facility] Comment on above: Performed By: #### G LULS #### Point of Care testing , Lymphocytes/100 WBC (Bld) 13.5 % Normal . [facility] Comment on above: Performed By: #### G LULS #### Point of Care testing , MCH (RBC) [Entitic mass] 25.4 pg Low 27.5-35.2 [facility] Comment on above: Performed By: #### G LULS #### Point of Care testing , MCV (RBC) [Entitic vol] 78.4 fL Low 83.5-101 [facility] Comment on above: Performed By: #### G LULS #### Point of Care testing , Mean Corpuscular HGB Conc 32.4 g/dL Low 32.5-35.6 [facility] Comment on above: Performed By: #### G LULS #### Point of Care testing , Monocytes (Bld) [#/Vol] 1.1 10*3/uL High 0.0-0.8 [facility] Comment on above: Performed By: #### G LULS #### Point of Care testing , Monocytes/100 WBC (Bld) 9.6 % Normal . [facility] Comment on above: Performed By: #### G LULS #### Point of Care testing , Neutrophils (Bld) [#/Vol] 8.3 10*3/uL High 1.8-7.7 [facility] Comment on above: Performed By: #### G LULS #### Point of Care testing , Neutrophils/100 WBC (Bld) 71.4 % Normal . [facility] Comment on above: Performed By: #### G LULS #### Point of Care testing , NRBC% 0.0 /100{WBC} Normal 0-0.5 [facility] Comment on above: Performed By: #### G LULS #### Point of Care testing , Platelet mean volume (Bld) [Entitic vol] 6.5 fL Low 6.6-10.1 [facility] Comment on above: Performed By: #### G LULS #### Point of Care testing , Platelets (Bld) [#/Vol] 276 10*3/uL Normal 150-450 [facility] Comment on above: Performed By: #### G LULS #### Point of Care testing , RBC (Bld) [#/Vol] 2.71 10*6/uL Low 3.90-5.60 [facility] Comment on above: Performed By: #### G LULS #### Point of Care testing , WBC (Bld) [#/Vol] 11.7 10*3/uL High 4.1-10.5 [facility] Comment on above: Performed By: #### G LULS #### Point of Care testing , Glucose Poct Glucometerson 1 04-09-2022 Commemt1 Glu2: Cleaned Meter Normal [facility] Comment on above: Result Comment: PERF ORMED BY: [facility] [address] [facility] [place] [address] PATHOLOGIST EIGHT SECTION BLOWER FARRAH PAUL M.D. Performed By: #### G LULS #### Point of Care testing , Glucose [Mass/Vol] 177 mg/dL Normal [facility] Comment on above: Result Comment: [facility] om Glucose Reference Range is dependent on time and content of last meal. Glucose of more than 200 mg/dL in a nonstressed, ambulatory subject supports the diagnosis of Diabetes Mellitus. Performed By: #### G LULS #### Point of Care testing , Commemt1 Glu2: Cleaned Meter Normal [facility] Comment on above: Result Comment: PERF ORMED BY: [facility] [address] [facility] [place] [address] PATHOLOGIST EIGHT SECTION BLOWER FARRAH PAUL M.D. Performed By: #### G LULS #### Point of Care testing , Glucose [Mass/Vol] 140 mg/dL Normal [facility] Comment on above: Result Comment: [facility] om Glucose Reference Range is dependent on time and content of last meal. Glucose of more than 200 mg/dL in a nonstressed, ambulatory subject supports the diagnosis of Diabetes Mellitus. Performed By: #### G LULS #### Point of Care testing , Commemt1 Glu2: Cleaned Meter Normal [facility] Comment on above: Result Comment: PERF ORMED BY: [address] [place] [address] PATHOLOGIST EIGHT SECTION BLOWER FARRAH PAUL M.D. Performed By: #### G LULS #### Point of Care testing , Glucose [Mass/Vol] 136 mg/dL Normal [facility] Comment on above: Result Comment: [facility] om Glucose Reference Range is dependent on time and content of last meal. Glucose of more than 200 mg/dL in a nonstressed, ambulatory subject supports the diagnosis of Diabetes Mellitus. Performed By: #### G LULS #### Point of Care testing , Glucose [Mass/Vol] 81 mg/dL Normal [facility] Comment on above: Result Comment: [facility]ert[facility] om Glucose Reference Range is dependent on time and content of last meal. Glucose of more than 200 mg/dL in a nonstressed, ambulatory subject supports the diagnosis of Diabetes Mellitus. PERFORMED BY: [place] [address] PATHOLOGIST EIGHT SECTION BLOWER FARRAH PAUL M.D. Performed By: #### G LULS #### Point of Care testing , Glucose [Mass/Vol] 167 mg/dL Normal [facility] Comment on above: Result Comment: [facility] om Glucose Reference Range is dependent on time and content of last meal. Glucose of more than 200 mg/dL in a nonstressed, ambulatory subject supports the diagnosis of Diabetes Mellitus. PERFORMED BY: [place] [address] PATHOLOGIST EIGHT SECTION BLOWER FARRAH PAUL M.D. Performed By: #### G LULS #### Point of Care testing , Hemoglobin and Hematocriton 02-07-2023 Hematocrit (Bld) [Volume fraction] 22.1 % Low 38.8-50.0 [facility] Comment on above: Result Comment: PERF ORMED BY: [address] [place] [address] PATHOLOGIST EIGHT SECTION BLOWER FARRAH PAUL M.D. Performed By: #### G BHARATI #### Point of Care testing , Hemoglobin (Bld) [Mass/Vol] 7.1 g/dL Low 13.0-17.0 [facility] Comment on above: Performed By: [...] RESISTANT TO ALL B-LACTAM DRUGS. PERFORMED BY: [facility] [address] [place] [address] PATHOLOGIST EIGHT SECTION BLOWER FARRAH PAUL M.D. Normal [facility] Comment on above: Performed By: [...] RESISTANT TO ALL B-LACTAM DRUGS. PERFORMED BY: [address] [place] [address] PATHOLOGIST EIGHT SECTION BLOWER FARRAH PAUL M.D. Normal [facility] Comment on above: Performed By: #### G LUPAM #### Point of Care testing , Ambulatory Visit Summaryon 1 Ambulatory Visit Summary GANGA STINSON :1960 Visit Date:01/19/2023 Ambulatory Visit Instructions Your Care Team Attending Physician - ALLEN NAZARIO, Parvin Christie Primary Care Physician - FIDEL ABBOTT MD This Is Your Medications List Misc Prescription [...] you for choosing us for your care. [facility] Operative Reporton Operative Report [id number]#1.00TIFF [facility] Pre-Certification Formon Pre-Certification Form [id number]#1.00TIFF [facility] Insurance Correspondenceon 0 12-25-2022 Insurance Correspondence [id number]#1.00CD:127 [facility] Consent for Procedure/Surger yon 12-22-2022 Consent for Procedure/Surgery [id number]#1.00CD:127 [facility] Lab Reportson 11-10-2022 Lab Reports [id number]#1.00CD:127 [facility] RAD - Ultrasound Reporton RAD - Ultrasound Report [id number]#1.00CD:127 Normal [facility] Ambulatory Visit Summaryon 0 11-09-2022 Ambulatory Visit Summary GANGA STINSON :1960 Visit Date:11/09/2022 Ambulatory Visit Instructions Your Diagnosis Urinary retention Urethral stricture in male Neurogenic bladder Your Care Team Attending Physician - Parvin VILLA MD Primary Care Physician - FIDEL ABBOTT MD [...] Where: [facility] [address] , [place] [phone] Medications What How Much When Instructions Unchanged [...] these instructions at home: Medicines ? Take ehgw-pic-cjjlyjq and prescription medicines only as told by your heal (more content not included)... Normal [facility] Patient Educationon 11-10-19 Patient Education Urology Acute [...] these instructions at home: Medicines ? Take irdp-cpz-mwwmkxb and prescription medicines only as told by [...] provider. Document Revised: 12/04/2020 Document Reviewed: 12/04/2020 Elsevier Patient Education ? 2022 [employer] Deonte Blake [facility] Urology Office/Clinic Noteon 11-09-2022 Urology Office/Clinic Note HPI Staff Follow up to hospital consult 10/08/2022 due to cath insertion S/P cysto UD cath insertion 10/08/2022.... Pt is a new Pt last seen in our office 02/25/[address] Crockett due to NGB incomplete bladder and BPH Pt has been seeing Dr. Clarke ( [facility])for the last couple years last seen [...] bladder. Pt was seen in consult at [facility] on 10/08/22 for difficulty with catheter placement. [...] Will order Local anesthesia. Abx sent to [facility] in [place]. 2. Urethral stricture in male (N35.919: Unspecified urethral stricture, male, unspecified site) S/p Urethrotomy done 07/07/[address] Nagy. S/p Cysto/UD done 10/08/22. Pt understands urethral stricture may return and a dilation may need repeated. 3. Neurogenic bladder (N31.9: Neuromuscular dysfunction of bladder, unspecified) See #1 Follow-up With When Contact Information ALLEN NAZARIO, Parvin Christie, URL [facility] [address] [place] [address] [phone] Additional Instructions: sched cysto Patient Education Acute [...] influenza vir (more content not included)... Normal [facility] Comment on above: Result Comment: Elec tronically Signed By: Pavrin VILLA MD\.br\Date and Time Signed: 11/09/22 14:10 EDT\.br\Electronically Co-Signed By: Dia Serratobr\Date and Time Co-Signed: 11/09/22 14:09 EDT Lab Reportson 10-12-2022 Lab Reports [id number]#1.00CD:127 Normal [facility] Lab Reports [id number]#1.00CD:127 [facility] Lab Reports [id number]#1.00CD:127 [facility] Lab Reports [id number]#1.00CD:127 Normal [facility] Lab Reports [id number]#1.00CD:127 Normal [facility] Consultation Noteon 10-10-19 Consultation Note [id number]#1.00CD:127 [facility] Insurance Correspondence Off iceon 10-09-2022 Insurance Correspondence Office [id number]#1.00CD:127 Normal [facility] Lab Reportson 10-09-2022 Lab Reports [id number]:127 [facility] Lab Reports [id number]:127 [facility] Lab Reports [id number]:127 [facility] Operative Reporton Operative Report [id number]#1.00CD:127 [facility] Cult,Urineon 09-26-2022 Cult,Urine Specimen Description .CLEAN CATCH URINE Culture NO SIGNIFICANT GROWTH Report Status FINAL 09/26/2022 Normal [facility] Comment on above: Performed By: #### C MPX, CDP #### [facility] [address] [place] [address] [place] [address] Director Food And Beverage: Khadar Tang MD US RENAL COMPLETEon 09-20-19 [...] Alexander Mcclain DO 09/19/22 Final result Normal [facility] Unremarkable ultraso und of the kidneys and urinary bladder. [facility] EXAMINATION: RETROPERITONEAL ULTRASOUND OF [...] the bladder. No significant post void residual. [facility] Alexander Mcclain DO - [...] ultrasound of the kidneys and urinary bladder. [facility] US RENAL COMPLETEOrdered By: Alexander Mcclain on 09-19-2022 [facility] Work Phone: Basic Metabolic Profon 09-18 Anion gap [Moles/Vol] 10 mmol/L Normal 9-17 [facility] Comment on above: Performed By: #### B MP #### [facility] [address] [place] [address] Director Food And Beverage: Khadar Tang MD BUN/CRE Ratio 26 High 9-20 [facility] Comment on above: Performed By: #### B MP #### [facility] [address] [place] [address] Director Food And Beverage: Khadar Tang MD Calcium [Mass/Vol] 9.3 mg/dL Normal 8.6-10.4 [facility] Comment on above: Performed By: #### B MP #### [facility] [address] [place] [address] Director Food And Bever[employer]: Khadar Tang MD Chloride [Moles/Vol] 105 mmol/L Normal 98-107 [facility] Comment on above: Performed By: #### B MP #### [facility] [address] [place] [address] Director Food And Beverage: Khadar Tang MD CO2 [Moles/Vol] 22 mmol/L Normal 20-31 [facility] Comment on above: Performed By: #### B MP #### [facility] [address] [place] [address] Director Food And Beverage: Khadar Tang MD Creatinine [Mass/Vol] 1.25 mg/dL High 0.70-1.20 [facility] Comment on above: Performed By: #### B MP #### [facility] [address] [place] [address] Director Food And Beverage: Khadar Tang MD GFR/1.73 sq M.predicted among non-blacks MDRD (S/P/Bld) [Vol rate/Area] mL/min/{1.73_m2} Normal >60 [facility] Comment on above: Result Comment: These results [...] secretion. Performed By: #### B MP #### [facility] [address] [place] [address] Director Food And Beverage: Khadar Tang MD Glucose [Mass/Vol] 186 mg/dL High 70-99 [facility] Comment on above: Performed By: #### B MP #### [facility] [address] [place] [address] Director Food And Beverage: Khadar Tang MD Potassium [Moles/Vol] 4.1 mmol/L Normal 3.7-5.3 [facility] Comment on above: Performed By: #### B MP #### [facility] [address] [place] [address] Director Food And Beverage: Khadar Tang MD Sodium [Moles/Vol] 137 mmol/L Normal 135-144 [facility] Comment on above: Performed By: #### B MP #### [facility] [address] [place] [address] Director Food And Beverage: Khadar Tang MD Urea nitrogen [Mass/Vol] 32 mg/dL High 8-23 [facility] Comment on above: Performed By: #### B MP #### [facility] [address] [place] [address] Director Food And Beverage: Khadar Tang MD RENAL COMPLETEon 09-19-19 Radiology Study observation (narrative) [facility] Aerobic Cultureon 09-08-2022 Aerobic Culture ORGANISM: Strep dysgalactiae (O:STRDYS) Comments Organism Not Routinely Tested for Susceptibilities Quantity of Growth Light Growth No Anaerobes Isolated 3 Days Gram Stain Result No Bacteria Seen PERFORMED BY: [facility] [address] [place] [address] PATHOLOGIST EIGHT SECTION BLOWER FARRAH PAUL M.D. Normal [facility] Comment on above: Performed By: #### G LULS #### Point of Care testing , Hemoglobin A1Con 2022 Glucose [Mass/Vol] 171 mg/dL Normal [facility] Comment on above: Result Comment: The ADA and AACC recommend providing the estimated average glucose result to permit better patient understanding of their HBA1c result. Performed By: #### G LYHGB #### [address] [address] Director Food And Beverage: Jeff Casanova MD HbA1c (Bld) [Mass fraction] 7.6 % High 4.0-6.0 [facility] Comment on above: Performed By: #### G [facility] #### [facility] [employer] [address] [place] [address] Director Food And Beverage: Jeff Casanova MD OPERATIVE REPORTon 3 OPERATIVE REPORT [address] [address] OPERATIVE REPORT PATIENT NAME: GANGA STINSON : 1960 [facility] REC NO: [id number] ROOM: ACCOUNT NO: [id number] ADMIT DATE: 2022 PROVIDER: Angeles Nagy DATE OF PROCEDURE: 2022 SURGEON: Dr. Angeles Nagy. MANUAL LATHE OPERATOR: None. PREOPERATIVE DIAGNOSES: 1. Neurogenic bladder. 2. Urethral stricture. POSTOPERATIVE DIAGNOSES: 1. Neurogenic bladder. 2. Urethral stricture. PROCEDURE PERFORMED: Direct visual internal urethrotomy. ANESTHESIA: General. COMPLICATIONS: None. ESTIMATED BLOOD LOSS: Minimal. SPECIMENS: None. PROSTHESIS: An 18-Qatari Rowe catheter. DISPOSITION: Stable. FINDINGS: Bulbous urethral stricture. 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 DESCRIPTION OF PROCEDURE: The patient was taken back to the operating room after informed consent including all risks, benefits, and alternatives were obtained. The patient was transferred from the [facility] onto the operating room table, where he was induced under general anesthesia and given IV Ancef for preoperative antibiotic prophylaxis. To begin the case, he was prepped and draped in the normal sterile fashion and placed in dorsal lithotomy. He had a 21-Qatari sheath with a 30-degree lens passed through [...] then removed the scope and inserted an 18-Qatari Rowe catheter with ease. He was then awoken from general anesthesia, transferred to the [facility], and taken to the PACU in satisfactory condition by Nursing and Anesthesia Teams. PLAN: The patient will be discharged home per PACU criterion and follow up with me in one week for Rowe catheter removal. ANGELES NAGY [id number] Doc#: [id number] CC: Normal [facility] Basic Metabolic Panelon 04-0 Anion gap [Moles/Vol] 10 mmol/L 9 - 17 mmol/L [facility] Calcium [Mass/Vol] 8.8 mg/dL 8.6 - 10. 4 mg/dL [facility] Chloride [Moles/Vol] 106 mmol/L 98 - 107 mmol/L [facility] CO2 [Moles/Vol] 24 mmol/L 20 - 31 mmol/L [facility] Creatinine [Mass/Vol] 1.3 mg/dL High 0.70 - 1.20 mg/dL [facility] [employer] GFR/1.73 sq M.predicted MDRD (S/P/Bld) [Vol rate/Area] - PINF [facility] Comment on above: These results are not [...] 250 mg/dL High 70 - 99 mg/dL [facility] [employer] Interpretation and review of laboratory results Abnormal [facility] Potassium [Moles/Vol] 4.0 mmol/L 3.7 - 5.3 mmol/L [facility] Sodium [Moles/Vol] 140 mmol/L 135 - 144 mmol/L [facility] Urea nitrogen [Mass/Vol] 29 mg/dL High 8 - 23 mg/dL [facility] Urea nitrogen/Creatinin e (Bld) [Mass ratio] 22 High 9 - 20 [facility] Basic Metabolic Profon 07-02 Anion gap [Moles/Vol] 10 mmol/L Normal 9-17 [facility] Comment on above: Performed By: #### C MPX, CDP #### [facility] [address] [place], [place] 1024[address] Director Food And Beverage: Khadar Tang MD BUN/CRE Ratio 22 High 9-20 [facility] Comment on above: Performed By: #### C MPX, CDP #### [facility] [address] [place], [place] [address]83 Director Food And Beverage: Khadar Tang MD Calcium [Mass/Vol] 8.8 mg/dL Normal 8.6-10.4 [facility] Comment on above: Performed By: #### C MPX, CDP #### [facility] [address] [place], [place] [id number] Director Food And Beverage: Khadar Tang MD Chloride [Moles/Vol] 106 mmol/L Normal 98-107 [facility] Comment on above: Performed By: #### C MPX, CDP #### [facility] [address] [place], [place] [id number] Director Food And Beverage: Khadar Tang MD CO2 [Moles/Vol] 24 mmol/L Normal 20-31 [facility] Comment on above: Performed By: #### C MPX, CDP #### [facility] [address] [place], [place] [id number] Director Food [employer] Beverage: Khadar Tang MD Creatinine [Mass/Vol] 1.30 mg/dL High 0.70-1.20 [facility] Comment on above: Performed By: #### C MPX, CDP #### [facility] [address] [place] [address] Director [employer]: Khadar Tang MD GFR/1.73 sq M.predicted among non-blacks MDRD (S/P/Bld) [Vol rate/Area] mL/min/{1.73_m2} Normal >60 [facility] Comment on above: Result Comment: These results [...] Performed By: #### C MPX, CDP #### [facility] [address] [place] [address] [place] [address] Director [employer] Bever[employer]: Khadar Tang MD Glucose [Mass/Vol] 250 mg/dL High 70-99 [facility] Comment on above: Performed By: #### C MPX, CDP #### [facility] [address] [place] [address] Dr. [place], [place] 9721283 Director Food [employer] Bever[employer]: Khadar Tang MD Potassium [Moles/Vol] 4.0 mmol/L Normal 3.7-5.3 [facility] Comment on above: Performed By: #### C MPX, CDP #### [address] [place], [place] [id number] Director Food And Beverage: Khadar Tang MD Sodium [Moles/Vol] 140 mmol/L Normal 135-144 [facility] Comment on above: Performed By: #### C MPX, CDP #### [facility] [address] [place] [address] Dr. [place], [place] [phone] Director Food [employer] Bever[employer]: Khadar Tang MD Urea nitrogen [Mass/Vol] 29 mg/dL High 8-23 [facility] Comment on above: Performed By: #### C MPX, CDP #### [facility] [address] [place] [address] Director [employer]: Khadar Tang MD CBC with Auto Differentialon 07-02-2022 Absolute Eos # 0.80 High [facility] Absolute Immature Granulocyte 0.06 [facility] Absolute Lymph # 1.38 [facility] Absolute [place] # 0.81 [facility] Basophils Absolute [facility] Basophils/100 WBC (Bld) 0 % 0 - 2 % [facility] Eosinophils/100 WBC (Bld) 7 % High 1 - 4 % [facility] Hematocrit (Bld) [Volume fraction] 26.8 % Low 40.7 - 50.3 % [facility] Hemoglobin (Bld) [Mass/Vol] 7.9 g/dL Low 13.0 - 17.0 g/dL [facility] Immature granulocytes/100 WBC (Bld) 1 % High 0 [facility] Interpretation and review of laboratory results Abnormal [facility] Lymphocytes/100 WBC (Bld) 13 % Low 24 - 43 % [facility] MCH (RBC) [Entitic mass] 23.3 pg Low 25.2 - 33.5 pg [facility] MCHC (RBC) [Mass/Vol] 29.5 g/dL 28.4 - 34.8 g/dL [facility] MCV (RBC) [Entitic vol] 79.1 fL Low 82.6 - 102.9 fL [facility] Monocytes/100 WBC (Bld) 8 % 3 - 12 % [facility] NRBC Automated 0.0 0.0 per 100 WBC [facility] Platelet distribution width (Bld) [Ratio] 16.1 % High 11.8 - 14.4 % [facility] Platelet mean volume (Bld) [Entitic vol] 9.1 fL 8.1 - 13.5 fL [facility] Platelets (Bld) [#/Vol] 241 10*3/uL [facility] RBC (Bld) [#/Vol] 3.39 10*6/uL Low 4.21 - 5.7 7 m/uL [facility] Segmented neutrophils/100 WBC (Bld) 71 % High 36 - 65 % [facility] Segs Absolute 7.79 [facility] WBC (Bld) [#/Vol] 10.9 10*3/uL [facility] CBC with Diffon 07-02-2022 Abs. Basophil <0.03 Normal 0.00-0.20 [facility] Comment on above: Performed By: #### C MPX, CDP #### [facility] [address] [place], [place] [address]83 Director Food [employer] Bever[employer]: Khadar Tang MD Abs.Imm.Granulocyt e 0.06 k/uL Normal 0.00-0.30 [facility] Comment on above: Performed By: #### C MPX, CDP #### [facility] [address] [place] [address] Dr. [place], [place] [phone] Director [employer]: Khadar Tang MD Abs.Neutrophil (Seg) 7.79 k/uL Normal 1.50-8.10 [facility] Comment on above: Performed By: #### C MPX, CDP #### [facility] [address] [place], [place] 6994983 Director Food [employer] Bever[employer]: Khadar Tang MD Basophils/100 WBC (Bld) 0 % Normal 0-2 [facility] Comment on above: Performed By: #### C MPX, CDP #### [address] [place], [place] 9[address]2283 Director [employer] Bever[employer]: Khadar Tang MD Eosinophils (Bld) [#/Vol] 0.80 10*3/uL High 0.00-0.44 [facility] Comment on above: Performed By: #### C MPX, CDP #### [facility] [address] [place], [place] 7106483 Director Food [employer] Bever[employer]: Khadar Tang MD Eosinophils/100 WBC (Bld) 7 % High 1-4 [facility] Comment on above: Performed By: #### C MPX, CDP #### [facility] [address] [place], [place] 550[address]83 Director Food [employer] Bever[employer]: Khadar Tang MD Erythrocyte distribution width (RBC) [Ratio] 16.1 % High 11.8-14.4 [facility] Comment on above: Performed By: #### C MPX, CDP #### [facility] [address] [place] [address] Dr. [place], [place] 8243083 Director Food [employer] Bever[employer]: Khadar Tang MD Hematocrit (Bld) [Volume fraction] 26.8 % Low 40.7-50.3 [facility] Comment on above: Performed By: #### C MPX, CDP #### [facility] [address] [place] [address] Dr. [place], [place] [phone] Director [employer] Bever[employer]: Khadar Tang MD Hemoglobin (Bld) [Mass/Vol] 7.9 g/dL Low 13.0-17.0 [facility] Comment on above: Performed By: #### C MPX, CDP #### [facility] [address] [place] [address] Dr. [place], [place] [phone] Director Food [employer] Bever[employer]: Khadar Tang MD Immature granulocytes/100 WBC (Bld) 1 % High 0 [facility] Comment on above: Performed By: #### C MPX, CDP #### [address] [place], [place] 1010983 Director Food And Beverage: Khadar Tang MD Lymphocytes (Bld) [#/Vol] 1.38 10*3/uL Normal 1.10-3.70 [facility] Comment on above: Performed By: #### C MPX, CDP #### [facility] [address] [place] [address] Dr. [place], [place] [phone] Director Food And Beverage: Khadar Tang MD Lymphocytes/100 WBC (Bld) 13 % Low 24-43 [facility] Comment on above: Performed By: #### C MPX, CDP #### [facility] [address] [place] [address] Dr. [place], [place] [phone] Director Food [employer] Bever[employer]: Khadar Tang MD MCH (RBC) [Entitic mass] 23.3 pg Low 25.2-33.5 [facility] Comment on above: Performed By: #### C MPX, CDP #### [facility] [address] [place], [place] [address]26983 Director Food And Beverage: Khadar Tang MD MCHC (RBC) [Mass/Vol] 29.5 g/dL Normal 28.4-34.8 [facility] Comment on above: Performed By: #### C MPX, CDP #### [facility] [address] [place], [place] [phone] Director Food And Bever[employer]: Khadar Tang MD MCV (RBC) [Entitic vol] 79.1 fL Low 82.6-102.9 [facility] Comment on above: Performed By: #### C MPX, CDP #### [address] [place] [address] Director Food And Bever[employer]: Khadar Tang MD Monocytes (Bld) [#/Vol] 0.81 10*3/uL Normal 0.10-1.20 [facility] Comment on above: Performed By: #### C MPX, CDP #### [address] [place], [place] 268[address]83 Director Food And Bever[employer]: Khadar Tang MD Monocytes/100 WBC (Bld) 8 % Normal 3-12 [facility] Comment on above: Performed By: #### C MPX, CDP #### [facility] [address] [place], [place] [phone] Director Food [employer]: Khadar Tang MD Neutrophil (Seg) 71 % High 36-65 [facility] Comment on above: Performed By: #### C MPX, CDP #### [facility] [address] [place] [address] Director Food And Bever[employer]: Khadar Tang MD NRBC Automated 0.0 per 100 WBC Normal 0.0 [facility] Comment on above: Performed By: #### C MPX, CDP #### [facility] [address] [place], [place] [phone] Director [employer]: Khadar Tang MD Platelet mean volume (Bld) [Entitic vol] 9.1 fL Normal 8.1-13.5 [facility] Comment on above: Performed By: #### C MPX, CDP #### [facility] [address] [place], [place] 0278483 Director Food And Bever[employer]: Khadar Tang MD Platelets (Bld) [#/Vol] 241 10*3/uL Normal 138-453 [facility] Comment on above: Performed By: #### C MPX, CDP #### [facility] [address] [place], [place] 139[address]3 Director Food And Bever[employer]: Khadar Tang MD RBC (Bld) [#/Vol] 3.39 10*6/uL Low 4.21-5.77 [facility] Comment on above: Performed By: #### C MPX, CDP #### [address] [place], [place] [phone] Director Food And Beverage: Khadar Tang MD WBC (Bld) [#/Vol] 10.9 10*3/uL Normal 3.5-11.3 [facility] Comment on above: Performed By: #### C MPX, CDP #### [address] [place], [place] [phone] Director Food And Beverage: Khadar Tang MD Cult,Woundon 06-27-2022 Cult,Wound Specimen Description .WOUND Special Requests LEG Direct Exam NO NEUTROPHILS SEEN NO ORGANISMS SEEN Culture NO GROWTH Report Status FINAL 06/27/2022 Normal [facility] Comment on above: Performed By: #### C MPX, CDP #### [facility] [address] [place] [address] Director [employer]: Khadar Tang MD CBC auto differentialon 03-3 Absolute Eos # 0.63 High [facility] Absolute Immature Granulocyte 0.05 [facility] Absolute Lymph # 1.33 [facility] Absolute [place] # 0.82 [facility] Basophils Absolute [facility] Basophils/100 WBC (Bld) 0 % 0 - 2 % [facility] Eosinophils/100 WBC (Bld) 7 % High 1 - 4 % [facility] Hematocrit (Bld) [Volume fraction] 24.4 % Low 40.7 - 50.3 % [facility] Hemoglobin (Bld) [Mass/Vol] 7.6 g/dL Low 13.0 - 17.0 g/dL [facility] Immature granulocytes/100 WBC (Bld) 1 % High 0 [facility] Interpretation and review of laboratory results Abnormal [facility] Lymphocytes/100 WBC (Bld) 14 % Low 24 - 43 % [facility] MCH (RBC) [Entitic mass] 23.8 pg Low 25.2 - 33.5 pg [facility] MCHC (RBC) [Mass/Vol] 31.1 g/dL 28.4 - 34.8 g/dL [facility] MCV (RBC) [Entitic vol] 76.3 fL Low 82.6 - 102.9 fL [facility] Monocytes/100 WBC (Bld) 9 % 3 - 12 % [facility] NRBC Automated 0.0 0.0 per 100 WBC [facility] Platelet distribution width (Bld) [Ratio] 16.0 % High 11.8 - 14.4 % [facility] Platelet mean volume (Bld) [Entitic vol] 8.8 fL 8.1 - 13.5 fL [facility] Platelets (Bld) [#/Vol] 205 10*3/uL [facility] RBC (Bld) [#/Vol] 3.20 10*6/uL Low 4.21 - 5.7 7 m/uL [facility] Segmented neutrophils/100 WBC (Bld) 69 % High 36 - 65 % [facility] Segs Absolute 6.49 [facility] WBC (Bld) [#/Vol] 9.3 10*3/uL [facility] CBC with Diffon 06-26-2022 Abs. Basophil <0.03 Normal 0.00-0.20 [facility] Comment on above: Performed By: #### C MPX, CDP #### [facility] [address] [place] [address] Dr. [place], [place] [phone] Director Food And Beverage: Khadar Tang MD Abs.Imm.Granulocyt e 0.05 k/uL Normal 0.00-0.30 [facility] Comment on above: Performed By: #### C MPX, CDP #### [facility] [address] [place], [place] [phone] Director Food And Bever[employer]: Khadar Tang MD Abs.Neutrophil (Seg) 6.49 k/uL Normal 1.50-8.10 [facility] Comment on above: Performed By: #### C MPX, CDP #### [facility] [address] [place] [address] Dr. [place], [place] [phone] Director Food And Bever[employer]: Khadar Tang MD Basophils/100 WBC (Bld) 0 % Normal 0-2 [facility] Comment on above: Performed By: #### C MPX, CDP #### [address] [place] [address] Director Food And Bever[employer]: Khadar Tang MD Eosinophils (Bld) [#/Vol] 0.63 10*3/uL High 0.00-0.44 [facility] Comment on above: Performed By: #### C MPX, CDP #### [facility] [address] [place] [address] [place] [address] Director Food [employer] Bever[employer]: Khadar Tang MD Eosinophils/100 WBC (Bld) 7 % High 1-4 [facility] Comment on above: Performed By: #### C MPX, CDP #### [facility] [address] [place], [place] [phone] Director Food And Bever[employer]: Khadar Tang MD Erythrocyte distribution width (RBC) [Ratio] 16.0 % High 11.8-14.4 [facility] Comment on above: Performed By: #### C MPX, CDP #### [facility] [address] [place] [address] Dr. [place], [place] [phone] Director [employer] Bever[employer]: Khadar Tang MD Hematocrit (Bld) [Volume fraction] 24.4 % Low 40.7-50.3 [facility] Comment on above: Performed By: #### C MPX, CDP #### [facility] [address] [place] [address] Dr. [place], [facility]83 Director Food And Beverage: Khadar Tang MD Hemoglobin (Bld) [Mass/Vol] 7.6 g/dL Low 13.0-17.0 [facility] Comment on above: Performed By: #### C MPX, CDP #### [address] [place] [address] Director Food And Bever[employer]: Khadar Tang MD Immature granulocytes/100 WBC (Bld) 1 % High 0 [facility] Comment on above: Performed By: #### C MPX, CDP #### [address] [place], [facility]83 Director Food And Beverage: Khadar Tang MD Lymphocytes (Bld) [#/Vol] 1.33 10*3/uL Normal 1.10-3.70 [facility] Comment on above: Performed By: #### C MPX, CDP #### [facility] [address] [place] [address] Dr. [place], [facility]83 Director Food And Bever[employer]: Khadar Tang MD Lymphocytes/100 WBC (Bld) 14 % Low 24-43 [facility] Comment on above: Performed By: #### C MPX, CDP #### [address] [place] [address] Director [employer] And Bever[employer]: Khadar Tang MD MCH (RBC) [Entitic mass] 23.8 pg Low 25.2-33.5 [facility] Comment on above: Performed By: #### C MPX, CDP #### [facility] [address] [place] [address] Director Food And Beverage: Khadar Tang MD MCHC (RBC) [Mass/Vol] 31.1 g/dL Normal 28.4-34.8 [facility] Comment on above: Performed By: #### C MPX, CDP #### [facility] [address] [place], [place] [id number] Director Food And Beverage: Khadar Tang MD MCV (RBC) [Entitic vol] 76.3 fL Low 82.6-102.9 [facility] Comment on above: Performed By: #### C MPX, CDP #### [address] [place] [address] Director Food And Beverage: Khadar Tang MD Monocytes (Bld) [#/Vol] 0.82 10*3/uL Normal 0.10-1.20 [facility] Comment on above: Performed By: #### C MPX, CDP #### [address] [place] [address] [place] [address] Director Food And Beverage: Khadar Tang MD Monocytes/100 WBC (Bld) 9 % Normal 3-12 [facility] Comment on above: Performed By: #### C MPX, CDP #### [address] [place], [place] [id number] Director Food And Beverage: Khadar Tang MD Neutrophil (Seg) 69 % High 36-65 [facility] Comment on above: Performed By: #### C MPX, CDP #### [facility] [address] [place] [address] Director Food And Beverage: Khadar Tang MD NRBC Automated 0.0 per 100 WBC Normal 0.0 [facility] Comment on above: Performed By: #### C MPX, CDP #### [facility] [address] [place], [place] [id number] Director Food And Beverage: Kahdar Tang MD Platelet mean volume (Bld) [Entitic vol] 8.8 fL Normal 8.1-13.5 [facility] Comment on above: Performed By: #### C MPX, CDP #### [facility] [address] [place], [place] [id number] Director Food And Beverage: Khadar Tang MD Platelets (Bld) [#/Vol] 205 10*3/uL Normal 138-453 [facility] Comment on above: Performed By: #### C MPX, CDP #### [facility] [address] [place], [place] [id number] Director Food And Bever[employer]: Khadar Tang MD RBC (Bld) [#/Vol] 3.20 10*6/uL Low 4.21-5.77 [facility] Comment on above: Performed By: #### C MPX, CDP #### [facility] [address] [place], [place] [id number] Director Food And Beverage: Khadar Tang MD WBC (Bld) [#/Vol] 9.3 10*3/uL Normal 3.5-11.3 [facility] Comment on above: Performed By: #### C MPX, CDP #### [facility] [address] [place], [place] [id number] Director Food And Beverage: Khadar Tang MD EKG Rhythm Stripon 3 rd [facility] Glucose, Whole Bloodon 06-26 Glucose [Mass/Vol] 95 mg/dL 74 - 100 mg/dL [facility] No Panel Informationon 06-26 No dictation [facility] Work Phone: [facility] Work Phone: Surgical Pathologyon 023 Surgical Pathology [...] SURGICAL PATHOLOGY CONSULTATION Patient Name: GANGA STINSON [facility] Rec: [id number] Path Number: [id number] [facility] ANATOMIC PATHOLOGY [address] [place] [address]. [place], [place] [address] Normal [facility] Comment on above: Performed By: #### C MPX, CDP #### [facility] [address] [place] [place] [address] Director Food And Beverage: Khadar Tang MD Blood occult stool #1on 05-29 Date, Stool #1 3 [facility] Comment on above: 30 23 Hemoglobin.gastroi ntestinal spec 1 Ql (Stl) Negative NEGATIVE [facility] Time, Stool #1 194 [facility] CBC auto differentialon 05-29 Absolute Eos # 0.63 High [facility] Absolute Immature Granulocyte 0.07 [facility] Absolute Lymph # 1.63 [facility] Absolute [place] # 0.76 [facility] Basophils Absolute [facility] Basophils/100 WBC (Bld) 0 % 0 - 2 % [facility] Eosinophils/100 WBC (Bld) 7 % High 1 - 4 % [facility] Hematocrit (Bld) [Volume fraction] 24.6 % Low 40.7 - 50.3 % [facility] Hemoglobin (Bld) [Mass/Vol] 7.6 g/dL Low 13.0 - 17.0 g/dL [facility] Immature granulocytes/100 WBC (Bld) 1 % High 0 [facility] Interpretation and review of laboratory results Abnormal [facility] Lymphocytes/100 WBC (Bld) 19 % Low 24 - 43 % [facility] MCH (RBC) [Entitic mass] 23.7 pg Low 25.2 - 33.5 pg [facility] MCHC (RBC) [Mass/Vol] 30.9 g/dL 28.4 - 34.8 g/dL [facility] MCV (RBC) [Entitic vol] 76.6 fL Low 82.6 - 102.9 fL [facility] Monocytes/100 WBC (Bld) 9 % 3 - 12 % [facility] NRBC Automated 0.0 0.0 per 100 WBC [facility] Platelet distribution width (Bld) [Ratio] 15.9 % High 11.8 - 14.4 % [facility] Platelet mean volume (Bld) [Entitic vol] 8.9 fL 8.1 - 13.5 fL [facility] Platelets (Bld) [#/Vol] 223 10*3/uL [facility] RBC (Bld) [#/Vol] 3.21 10*6/uL Low 4.21 - 5.7 7 m/uL [facility] Segmented neutrophils/100 WBC (Bld) 64 % 36 - 65 % [facility] Segs Absolute 5.60 [facility] WBC (Bld) [#/Vol] 8.7 10*3/uL [facility] CBC with Diffon 06-25-2022 Abs. Basophil <0.03 Normal 0.00-0.20 [facility] Comment on above: Performed By: #### T ROPI #### [facility] [address] [place] [address] Director Food And Beverage: Khadar Tang MD Abs.Imm.Granulocyt e 0.07 k/uL Normal 0.00-0.30 [facility] Comment on above: Performed By: #### T ROPI #### [facility] [address] [place] [address] Director Food And Bever[employer]: Khadar Tang MD Abs.Neutrophil (Seg) 5.60 k/uL Normal 1.50-8.10 [facility] Comment on above: Performed By: #### T ROPI #### [address] [place], [place] 8[address]83 Director Food And Bever[employer]: Khadar Tang MD Basophils/100 WBC (Bld) 0 % Normal 0-2 [facility] Comment on above: Performed By: #### T ROPI #### [address] [place] [id number] Director Food And Beverage: Khadar Tang MD Eosinophils (Bld) [#/Vol] 0.63 10*3/uL High 0.00-0.44 [facility] Comment on above: Performed By: #### T ROPI #### [address] [place] [id number] Director Food And Beverage: Khadar Tang MD Eosinophils/100 WBC (Bld) 7 % High 1-4 [facility] Comment on above: Performed By: #### T ROPI #### [address] [place], [facility]83 Director Food And Beverage: Khadar Tang MD Erythrocyte distribution width (RBC) [Ratio] 15.9 % High 11.8-14.4 [facility] Comment on above: Performed By: #### T ROPI #### [address] [place], [facility]83 Director Food And Beverage: Khadar Tang MD Hematocrit (Bld) [Volume fraction] 24.6 % Low 40.7-50.3 [facility] Comment on above: Performed By: #### T ROPI #### [address] [place] [place] [address] Director Food And Beverage: Khadar Tang MD Hemoglobin (Bld) [Mass/Vol] 7.6 g/dL Low 13.0-17.0 [facility] Comment on above: Performed By: #### T ROPI #### [facility] [address] [place] [address] Director Food And Bever[employer]: Khadar Tang MD Immature granulocytes/100 WBC (Bld) 1 % High 0 [facility] Comment on above: Performed By: #### T ROPI #### [facility] [address] [place], [facility]83 Director Food And Bever[employer]: Khadar Tang MD Lymphocytes (Bld) [#/Vol] 1.63 10*3/uL Normal 1.10-3.70 [facility] Comment on above: Performed By: #### T ROPI #### [address] [place] [place] [address] Director Food And Beverage: Khadar Tang MD Lymphocytes/100 WBC (Bld) 19 % Low 24-43 [facility] Comment on above: Performed By: #### T ROPI #### [address] [place] [address] Director Food And Bever[employer]: Khadar Tang MD MCH (RBC) [Entitic mass] 23.7 pg Low 25.2-33.5 [facility] Comment on above: Performed By: #### T ROPI #### [address] [place] [address] Director Food And Beverage: Khadar Tang MD MCHC (RBC) [Mass/Vol] 30.9 g/dL Normal 28.4-34.8 [facility] Comment on above: Performed By: #### T ROPI #### [facility] [address] [place] [address] [place] [address] Director [employer]: Khadar Tang MD MCV (RBC) [Entitic vol] 76.6 fL Low 82.6-102.9 [facility] Comment on above: Performed By: #### T ROPI #### [address] [place] [address] Director Food And Beverage: Khadar Tang MD Monocytes (Bld) [#/Vol] 0.76 10*3/uL Normal 0.10-1.20 [facility] Comment on above: Performed By: #### T ROPI #### [facility] [address] [place], [place] [address]88483 Director Food And Beverage: Khadar Tang MD Monocytes/100 WBC (Bld) 9 % Normal 3-12 [facility] Comment on above: Performed By: #### T ROPI #### [facility] [address] [place], [place] 2179[address] Director Food And Beverage: Khadar Tang MD Neutrophil (Seg) 64 % Normal 36-65 [facility] Comment on above: Performed By: #### T ROPI #### [facility] [address] [place], [facility]83 Director Food And Beverage: Khadar Tang MD NRBC Automated 0.0 per 100 WBC Normal 0.0 [facility] Comment on above: Performed By: #### T ROPI #### [facility] [address] [place], [place] 344[address]83 Director Food And Beverage: Khadar Tang MD Platelet mean volume (Bld) [Entitic vol] 8.9 fL Normal 8.1-13.5 [facility] Comment on above: Performed By: #### T ROPI #### [facility] [address] [place], [place] [id number] Director Food [employer] Bever[employer]: Khadar Tang MD Platelets (Bld) [#/Vol] 223 10*3/uL Normal 138-453 [facility] Comment on above: Performed By: #### T ROPI #### [facility] [address] [place], [place] 5836683 Director Food And Beverage: Khadar Tang MD RBC (Bld) [#/Vol] 3.21 10*6/uL Low 4.21-5.77 [facility] Comment on above: Performed By: #### T ROPI #### [facility] [address] [place], [place] 5458483 Director Food And Beverage: Khadar Tang MD WBC (Bld) [#/Vol] 8.7 10*3/uL Normal 3.5-11.3 [facility] Comment on above: Performed By: #### T ROPI #### [facility] [address] [place], [place] 8228183 Director Food [employer] Bever[employer]: Khadar Tang MD Comp Metabolic Pr/rfx MGon 0 06-25-2022 Albumin [Mass/Vol] 2.8 g/dL Low 3.5-5.2 [facility] Comment on above: Performed By: #### T ROPI #### [address] [place], [facility]83 Director Food And Beverage: Khadar Tang MD Albumin/Glob Ratio 0.7 Low 1.0-2.5 [facility] Comment on above: Performed By: #### T ROPI #### [address] [place], [facility]83 Director Food And Beverage: Khadar Tang MD Alkaline Phos 75 U/L Normal 40-129 [facility] Comment on above: Performed By: #### T ROPI #### [facility] [address] [place], [place] [id number] Director Food And Beverage: Khadar Tang MD ALT [Catalytic activity/Vol] 9 U/L Normal 5-41 [facility] Comment on above: Performed By: #### T ROPI #### [address] [place] [address] Director Food And Bever[employer]: Khadar Tang MD Anion gap [Moles/Vol] 6 mmol/L Low 9-17 [facility] Comment on above: Performed By: #### T ROPI #### [facility] [address] [place], [place] [address]67[address]83 Director Food And Beverage: Khadar Tang MD AST [Catalytic activity/Vol] 10 U/L Normal <40 [facility] Comment on above: Performed By: #### T ROPI #### [facility] [address] [place], [place] [address]83 Director Food And Beverage: Khadar Tang MD Bilirubin [Mass/Vol] 0.3 mg/dL Normal 0.3-1.2 [facility] Comment on above: Performed By: #### T ROPI #### [facility] [address] [place] [address] Director Food And Beverage: Khadar Tang MD BUN/CRE Ratio 20 Normal 9-20 [facility] Comment on above: Performed By: #### T ROPI #### [facility] [address] [place], [place] [address] Director Food And Beverage: Khadar Tang MD Calcium [Mass/Vol] 8.7 mg/dL Normal 8.6-10.4 [facility] Comment on above: Performed By: #### T ROPI #### [facility] [address] [place], [place] 501[address]83 Director Food And Beverage: Khadar Tang MD Chloride [Moles/Vol] 113 mmol/L High 98-107 [facility] Comment on above: Performed By: #### T ROPI #### [facility] [address] [place], [place] 3965[address] Director Food And Beverage: Khadar Tang MD CO2 [Moles/Vol] 20 mmol/L Normal 20-31 [facility] Comment on above: Performed By: #### T ROPI #### [facility] [address] [place] [address] Director Food And Beverage: Khadar Tang MD Creatinine [Mass/Vol] 0.97 mg/dL Normal 0.70-1.20 [facility] Comment on above: Performed By: #### T ROPI #### [facility] [address] [place] [address] Director Food And Bever[employer]: Khadar Tang MD GFR/1.73 sq M.predicted among non-blacks MDRD (S/P/Bld) [Vol rate/Area] mL/min/{1.73_m2} Normal >60 [facility] Comment on above: Result Comment: These results [...] secretion. Performed By: #### T ROPI #### [facility] [address] [place] [address] Director Food And Beverage: Khadar Tang MD Glucose [Mass/Vol] 144 mg/dL High 70-99 [facility] Comment on above: Performed By: #### T ROPI #### [facility] [address] [place] [address] Director Food And Beverage: Khadar Tang MD Potassium [Moles/Vol] 4.5 mmol/L Normal 3.7-5.3 [facility] Comment on above: Performed By: #### T ROPI #### [facility] [address] [place] [address] Director Food And Beverage: Khadar Tang MD Protein [Mass/Vol] 6.7 g/dL Normal 6.4-8.3 [facility] Comment on above: Performed By: #### T ROPI #### [facility] [address] [place] [address] Director Food And Beverage: Khadar Tang MD Sodium [Moles/Vol] 139 mmol/L Normal 135-144 [facility] Comment on above: Performed By: #### T ROPI #### [facility] [address] [place] [address] Director Food And Beverage: Khadar Tang MD Urea nitrogen [Mass/Vol] 19 mg/dL Normal 8-23 [facility] Comment on above: Performed By: #### T BRENDA #### [facility] [address] [place] [address] Director Food And Beverage: Khadar Tang MD Comprehensive Metabolic Pane l w/ Reflex to MGon 06-25-2022 Albumin [Mass/Vol] 2.8 g/dL Low 3.5 - 5.2 g/dL [facility] Albumin/Globulin [Mass ratio] 0.7 {ratio} Low 1.0 - 2.5 [facility] ALP [Catalytic activity/Vol] 75 U/L 40 - 129 U/L [facility] ALT [Catalytic activity/Vol] 9 U/L 5 - 41 U/L [facility] Anion gap [Moles/Vol] 6 mmol/L Low 9 - 17 mmol/L [facility] AST [Catalytic activity/Vol] 10 U/L NINF - 40 U/L [facility] Bilirubin [Mass/Vol] 0.3 mg/dL 0.3 - 1.2 mg/dL [facility] Calcium [Mass/Vol] 8.7 mg/dL 8.6 - 10. 4 mg/dL [facility] Chloride [Moles/Vol] 113 mmol/L High 98 - 107 mmol/L [facility] CO2 [Moles/Vol] 20 mmol/L 20 - 31 mmol/L [facility] Creatinine [Mass/Vol] 0.97 mg/dL 0.70 - 1.20 mg/dL [facility] GFR/1.73 sq M.predicted MDRD (S/P/Bld) [Vol rate/Area] - PINF [facility] Comment on above: These results are not [...] 144 mg/dL High 70 - 99 mg/dL [facility] Interpretation and review of laboratory results Abnormal [facility] Potassium [Moles/Vol] 4.5 mmol/L 3.7 - 5.3 mmol/L [facility] Protein [Mass/Vol] 6.7 g/dL 6.4 - 8.3 g/dL [facility] Sodium [Moles/Vol] 139 mmol/L 135 - 144 mmol/L [facility] Urea nitrogen [Mass/Vol] 19 mg/dL 8 - 23 mg/dL [facility] Urea nitrogen/Creatinin e (Bld) [Mass ratio] 20 9 - 20 [facility] Cult,Woundon 06-25-2022 Cult,Wound Specimen Description .BUTTOCK Direct Exam FEW NEUTROPHILS MODERATE GRAM POSITIVE COCCI IN PAIRS MODERATE GRAM POSITIVE RODS Culture NORMAL SKIN ROBBIE Report Status FINAL 06/25/2022 [facility] Comment on above: Performed By: #### T ROPI #### [facility] [address] [place] [address] Director Food And Bever[employer]: Khadar Tang MD EKG Rhythm Stripon 3 [facility] ml [facility] Occult Blood, Fecalon 2022 Occult Blood 1 Negative Normal NEG [facility] Comment on above: Performed By: #### C MPX, CDP #### [facility] [address] [place] [place] [address] Director Food And Beverage: Khadar Tang MD Specimen 1 Date [facility] Comment on above: Result Comment: Performed By: #### C MPX, CDP #### [facility] [address] [place] [place] [address] Director Food And Beverage: Khadar Tang MD Specimen 1 Time 1944 [facility] Comment on above: Performed By: #### C FIFI, CDP #### [address] [place] [place] [address] Director Food And Beverage: Khadar Tang MD Surgical Pathologyon 023 Surgical [...] Specimen A: FIBULAR MALLEOLUS,RIGHT ANKLE Gross Description YAA RODRIGUEZ Received in formalin is a 0.8 x 0.2 x 0.1 cm pardo, firm tissue fragment. Totally embedded 1c, decal. tm Microscopic Description Microscopic examination performed. SURGICAL PATHOLOGY CONSULTATION Patient Name: GANGA STINSON [facility] Rec: [id number] Path Number: [id number] [facility] ANATOMIC PATHOLOGY [address] [place] [id number] [facility] Comment on above: Performed By: #### C FIFI, CDP #### [address] [place] [place] [address] Director Food And Beverage: Khadar Tang MD TYPE AND SCREENon 06-25-2022 ABO/Rh Negative [facility] Arm Band Number [id number] [facility] Blood Bank Blood Product Expiration Date [id number] [facility] Blood Bank ISBT Product Blood Type 9500 [facility] Blood Bank Unit Type and Rh Negative [facility] Blood product type Nom (BPU) Leukocyte Reduced Red Cell [facility] Blood product unit ID (Dose) [#] [id number] [facility] Crossmatch Result [facility] Dispense Status TRANSFUSED [facility] Expiration Date 06/27/2022,2357 [facility] Product Code Blood Bank [id number] [facility] Transfusion Status OK TO TRANSFUSE B ON [facility] Unit Divison 0 [facility] Unit Issue Date/Time [id number] [facility] APTTon 06-24-2022 aPTT Coag (Bld) [Time] 35.6 s High 26.8-34.8 [facility] Comment on above: Result Comment: IV Heparin Therapy Range: 62.0-94.0 Performed By: #### C MPX, CDP #### [facility] [address] [place], [place] [id number] Director Food And Beverage: Khadar Tang MD B12/Folate Panelon Cobalamin (Vitamin B12) [Mass/Vol] 446 pg/mL Normal 232-1245 [facility] Comment on above: Performed By: #### C MPX, CDP #### [facility] [address] [place] [address] Director Food And Beverage: Khadar Tang MD Folic Acid 8.2 ng/mL Normal >4.8 [facility] Comment on above: Performed By: #### C MPX, CDP #### [facility] [address] [place], [place] 0628783 Director Food And Bever[employer]: Khadar Tang MD CBC auto differentialon 05-28 Absolute Eos # 0.46 High [facility] Absolute Immature Granulocyte 0.07 [facility] Absolute Lymph # 1.52 [facility] Absolute [place] # 0.53 [facility] Basophils (Bld) [#/Vol] 0.00 10*3/uL [facility] Hematocrit (Bld) [Volume fraction] 21.7 % Low 40.7 - 50.3 % [facility] Hemoglobin (Bld) [Mass/Vol] 6.6 g/dL Critically low 13.0 - 17.0 g/dL [facility] Interpretation and review of laboratory results Abnormal [facility] MCH (RBC) [Entitic mass] 23.4 pg Low 25.2 - 33.5 pg [facility] MCHC (RBC) [Mass/Vol] 30.4 g/dL 28.4 - 34.8 g/dL [facility] MCV (RBC) [Entitic vol] 77.0 fL Low 82.6 - 102.9 fL [facility] Morphology Álvaro (Bld) [Interp] HYPOCHROMIA PRESENT [facility] NRBC Automated 0.0 0.0 per 100 WBC [facility] Platelet distribution width (Bld) [Ratio] 16.2 % High 11.8 - 14.4 % [facility] Platelet mean volume (Bld) [Entitic vol] 8.9 fL 8.1 - 13.5 fL [facility] Platelets (Bld) [#/Vol] 208 10*3/uL [facility] RBC (Bld) [#/Vol] 2.82 10*6/uL Low 4.21 - 5.7 7 m/uL [facility] Segmented neutrophils/100 WBC (Bld) 61 % 36 - 65 % [facility] Segs Absolute 4.02 [facility] WBC (Bld) [#/Vol] 6.6 10*3/uL [facility] CBC with Diffon 06-24-2022 Abs. Basophil 0.00 k/uL Normal 0.0-0.2 [facility] Comment on above: Performed By: #### C MPX, CDP #### [facility] [address] [place] [address] Director Food And Bever[employer]: Khadar Tang MD Abs.Imm.Granulocyt e 0.07 k/uL Normal 0.00-0.30 [facility] Comment on above: Performed By: #### C MPX, CDP #### [facility] [address] [place] [address] Director Food And Beverage: Khadar Tang MD Abs.Neutrophil (Seg) 4.02 k/uL Normal 1.50-8.10 [facility] Comment on above: Performed By: #### C MPX, CDP #### [facility] [address] [place], [place] [id number] Director [employer] And [employer]: Khadar Tang MD Eosinophils (Bld) [#/Vol] 0.46 10*3/uL High 0.00-0.44 [facility] Comment on above: Performed By: #### C MPX, CDP #### [facility] [address] [place], [place] [id number] Director Food And Beverage: Khadar Tang MD Lymphocytes (Bld) [#/Vol] 1.52 10*3/uL Normal 1.10-3.70 [facility] Comment on above: Performed By: #### C MPX, CDP #### [address] [place], [place] [address] Director Food And Beverage: Khadar Tang MD Monocytes (Bld) [#/Vol] 0.53 10*3/uL Normal 0.10-1.20 [facility] Comment on above: Performed By: #### C MPX, CDP #### [address] [place] [address] Director [employer] And Bever[employer]: Khadar Tang MD Morphology Álvaro (Bld) [Interp] HYPOCHROMIA Normal [facility] Comment on above: Result Comment: PRES ENT Performed By: #### C MPX, CDP #### [address] [place], [place] [address]83 Director [employer] And Bever[employer]: Khadar Tang MD Neutrophil (Seg) 61 % Normal 36-65 [facility] Comment on above: Performed By: #### C MPX, CDP #### [address] [place], [place] [id number] Director [employer] And Bever[employer]: Khadar Tang MD Erythrocyte distribution width (RBC) [Ratio] 16.2 % High 11.8-14.4 [facility] Comment on above: Performed By: #### C MPX, CDP #### [facility] [address] [place] [address] [place] [address] Director [employer]: Khadar Tang MD Hematocrit (Bld) [Volume fraction] 21.7 % Low 40.7-50.3 [facility] Comment on above: Performed By: #### C MPX, CDP #### [facility] [address] [place], [place] [id number] Director Food And Bever[employer]: Khadar Tang MD Hemoglobin (Bld) [Mass/Vol] 6.6 g/dL Critically low 13.0-17.0 [facility] Comment on above: Performed By: #### C MPX, CDP #### [address] [place], [place] [phone] Director Food And Bever[employer]: Khadar Tang MD MCH (RBC) [Entitic mass] 23.4 pg Low 25.2-33.5 [facility] Comment on above: Performed By: #### C MPX, CDP #### [address] [place] [address] Director Food And Bever[employer]: Khadar Tang MD MCHC (RBC) [Mass/Vol] 30.4 g/dL Normal 28.4-34.8 [facility] Comment on above: Performed By: #### C MPX, CDP #### [facility] [address] [place] [address] [place] [place] [address] Director [employer]: Khadar Tang MD MCV (RBC) [Entitic vol] 77.0 fL Low 82.6-102.9 [facility] Comment on above: Performed By: #### C MPX, CDP #### [address] [place] [address] Director [employer] And Bever[employer]: Khadar Tang MD NRBC Automated 0.0 per 100 WBC Normal 0.0 [facility] Comment on above: Performed By: #### C MPX, CDP #### [facility] [address] [place], [place] [id number] Director Food And Bever[employer]: Khadar Tang MD Platelet mean volume (Bld) [Entitic vol] 8.9 fL Normal 8.1-13.5 [facility] Comment on above: Performed By: #### C MPX, CDP #### [facility] [address] [place], [place] [id number] Director [employer] Bever[employer]: Khadar Tang MD Platelets (Bld) [#/Vol] 208 10*3/uL Normal 138-453 [facility] Comment on above: Performed By: #### C MPX, CDP #### [address] [place], [place] [address]83 Director Food And Bever[employer]: Khadar Tang MD RBC (Bld) [#/Vol] 2.82 10*6/uL Low 4.21-5.77 [facility] Comment on above: Performed By: #### C MPX, CDP #### [address] [place], [place] [id number] Director [employer] Bever[employer]: Khadar Tang MD WBC (Bld) [#/Vol] 6.6 10*3/uL Normal 3.5-11.3 [facility] Comment on above: Performed By: #### C MPX, CDP #### [facility] [address] [place] [address] [place] [place], [place] [phone] Director [employer]: Khadar Tang MD Basophils/100 WBC (Bld) 0 % Normal 0-2 [facility] Comment on above: Performed By: #### C MPX, CDP #### [address] [place] [address] Director Food And Bever[employer]: Khadar Tang MD Eosinophils/100 WBC (Bld) 7 % High 1-4 [facility] Comment on above: Performed By: #### C MPX, CDP #### [facility] [address] [place], [place] [phone] Director [employer]: Khadar Tang MD Immature granulocytes/100 WBC (Bld) 1 % High 0 [facility] Comment on above: Performed By: #### C MPX, CDP #### [facility] [address] [place], [place] [id number] Director [employer]: Khadar Tang MD Lymphocytes/100 WBC (Bld) 23 % Low 24-43 [facility] Comment on above: Performed By: #### C MPX, CDP #### [facility] [address] [place], [place] [phone] Director Food [employer] Bever[employer]: Khadar Tang MD Monocytes/100 WBC (Bld) 8 % Normal 3-12 [facility] Comment on above: Performed By: #### C MPX, CDP #### [facility] [address] [place], [place] [phone] Director [employer]: Khadar Tang MD Comp Metabolic Pr/rfx MGon 0 - Albumin [Mass/Vol] 2.4 g/dL Low 3.5-5.2 [facility] Comment on above: Performed By: #### C MPX, CDP #### [facility] [address] [place] [address] [place] [place], [place] 0[address]1783 Director [employer]: Khadar Tang MD Albumin/Glob Ratio 0.6 Low 1.0-2.5 [facility] Comment on above: Performed By: #### C MPX, CDP #### [facility] [address] [place] [address] Director [employer] Bever[employer]: Khadar Tang MD Alkaline Phos 75 U/L Normal 40-129 [facility] Comment on above: Performed By: #### C MPX, CDP #### [facility] [address] [place], [place] [id number] Director [employer] Bever[employer]: Khadar Tang MD ALT [Catalytic activity/Vol] 9 U/L Normal 5-41 [facility] Comment on above: Performed By: #### C MPX, CDP #### [facility] [address] [place], [place] [phone] Director [employer] Bever[employer]: Khadar Tang MD Anion gap [Moles/Vol] 7 mmol/L Low 9-17 [facility] Comment on above: Performed By: #### C MPX, CDP #### [facility] [address] [place], [place] [phone] Director Food And Bever[employer]: Khadar Tang MD AST [Catalytic activity/Vol] 11 U/L Normal <40 [facility] Comment on above: Performed By: #### C MPX, CDP #### [facility] [address] [place], [place] [phone] Director [employer] Bever[employer]: Khadar Tang MD Bilirubin [Mass/Vol] mg/dL Low 0.3-1.2 [facility] Comment on above: Performed By: #### C MPX, CDP #### [facility] [address] [place], [place] [address] Director Food [employer] Bever[employer]: Khadar Tang MD BUN/CRE Ratio 23 High 9-20 [facility] Comment on above: Performed By: #### C MPX, CDP #### [facility] [address] [place], [place] [address]83 Director Food And Bever[employer]: Khadar Tang MD Calcium [Mass/Vol] 8.5 mg/dL Low 8.6-10.4 [facility] Comment on above: Performed By: #### C MPX, CDP #### [facility] [address] [place], [place] [address]83 Director Food [employer] Bever[employer]: Khadar Tang MD Chloride [Moles/Vol] 115 mmol/L High 98-107 [facility] Comment on above: Performed By: #### C MPX, CDP #### [facility] [address] [place] [address] Director [employer] Bever[employer]: Khadar Tang MD CO2 [Moles/Vol] 18 mmol/L Low 20-31 [facility] Comment on above: Performed By: #### C MPX, CDP #### [facility] [address] [place] [address] Director [employer] Bever[employer]: Khadar Tang MD Creatinine [Mass/Vol] 1.11 mg/dL Normal 0.70-1.20 [facility] Comment on above: Performed By: #### C MPX, CDP #### [facility] [address] [place] [address] Director [employer]: Khadar Tang MD GFR/1.73 sq M.predicted among non-blacks MDRD (S/P/Bld) [Vol rate/Area] mL/min/{1.73_m2} Normal >60 [facility] Comment on above: Result Comment: These results [...] Performed By: #### C MPX, CDP #### [facility] [address] [place] [address] [place] [address] Director [employer]: Khadar Tang MD Glucose [Mass/Vol] 137 mg/dL High 70-99 [facility] Comment on above: Performed By: #### C MPX, CDP #### [facility] [address] [place] [address] Director Food And Bever[employer]: Khadar Tang MD Potassium [Moles/Vol] 4.9 mmol/L Normal 3.7-5.3 [facility] Comment on above: Performed By: #### C MPX, CDP #### [facility] [address] [place] [address] Director Food [employer] Bever[employer]: Khadar Tang MD Protein [Mass/Vol] 6.3 g/dL Low 6.4-8.3 [facility] Comment on above: Performed By: #### C MPX, CDP #### [facility] [address] [place] [address] Director Food [employer] Bever[employer]: Khadar Tang MD Sodium [Moles/Vol] 140 mmol/L Normal 135-144 [facility] Comment on above: Performed By: #### C MPX, CDP #### [facility] [address] [place] [address] Director Food [employer] Bever[employer]: Khadar Tang MD Urea nitrogen [Mass/Vol] 26 mg/dL High 8-23 [facility] Comment on above: Performed By: #### C MPX, CDP #### [facility] [address] [place] [address] Director [employer]: Khadar Tang MD Comprehensive Metabolic Pane l w/ Reflex to MGon 06-24-2022 Albumin [Mass/Vol] 2.4 g/dL Low 3.5 - 5.2 g/dL [facility] Albumin/Globulin [Mass ratio] 0.6 {ratio} Low 1.0 - 2.5 [facility] ALP [Catalytic activity/Vol] 75 U/L 40 - 129 U/L [facility] ALT [Catalytic activity/Vol] 9 U/L 5 - 41 U/L [facility] Anion gap [Moles/Vol] 7 mmol/L Low 9 - 17 mmol/L [facility] AST [Catalytic activity/Vol] 11 U/L NINF - 40 U/L [facility] Bilirubin [Mass/Vol] mg/dL Low 0.3 - 1.2 mg/dL [facility] Calcium [Mass/Vol] 8.5 mg/dL Low 8.6 - 10. 4 mg/dL [facility] Chloride [Moles/Vol] 115 mmol/L High 98 - 107 mmol/L [facility] CO2 [Moles/Vol] 18 mmol/L Low 20 - 31 mmol/L [facility] Creatinine [Mass/Vol] 1.11 mg/dL 0.70 - 1.20 mg/dL [facility] GFR/1.73 sq M.predicted MDRD (S/P/Bld) [Vol rate/Area] - PINF [facility] Comment on above: These results are not [...] 99 mg/dL [facility] Interpretation and review of laboratory results Abnormal [facility] Potassium [Moles/Vol] 4.9 mmol/L 3.7 - 5.3 mmol/L [facility] Protein [Mass/Vol] 6.3 g/dL Low 6.4 - 8.3 g/dL [facility] Sodium [Moles/Vol] 140 mmol/L 135 - 144 mmol/L [facility] Urea nitrogen [Mass/Vol] 26 mg/dL High 8 - 23 mg/dL [facility] Urea nitrogen/Creatinin e (Bld) [Mass ratio] 23 High 9 - 20 [facility] Culture, Wound Aerobic Onlyo n 06-24-2022 Interpretation and review of laboratory results Abnormal [facility] Microorganism identified Cx Nom (Unsp spec) NORMAL SKIN ROBBIE [facility] Microorganism or agent identified Nom (Unsp spec) FEW NEUTROPHILS Abnormal [facility] Specimen Description .BUTTOCK [facility] EKG 12 Leadon 06-24-2022 Atrial Rate 64 BPM [facility] [employer] Work Phone: P [employer] 51 degrees [facility] [employer] [facility] [employer] Work Phone: P-R Interval 174 ms [facility] [employer] Work Phone: Q-T Interval 394 ms [employer] Work Phone: QRS Duration 94 ms [employer] Work Phone: QTc Calculation (Bazett) 406 ms [employer] Work Phone: R [employer] 20 degrees [employer] Work Phone: T [employer] 22 degrees [employer] Work Phone: Ventricular Rate 64 BPM [employer] WILLIAM [employer] Work Phone: Normal sinus rhythm Inferior infarct , age undetermined Abnormal ECG When compared with ECG of 22-JUN-2022 17:28, Minimal criteria for Inferior infarct is now Present Confirmed by Michelle Noe MD ([id number]) on 06/24/2022 10:31:37 PM [facility] Michelle Noe MD - 06/24/2022 Normal sinus rhythm Inferior infarct , age undetermined Abnormal ECG When compared with ECG of 22-JUN-2022 17:28, Minimal criteria for Inferior infarct is now Present Confirmed by Michelle Noe MD ([id number]) on 06/24/2022 10:31:37 PM [facility] [employer] Work Phone: [facility] [employer] Work Phone: EKG Rhythm Stripon 3 [facility] Echocardiogram complete 2D w ith doppler with coloron 06-24-2022 Left ventricular Ejection fraction 60 [facility] Work Phone: LVEF MODALITY ECHO [facility] Work Phone: [facility] Transthoracic Echocardiography Report (TTE) Patient Name ALLOWAY Date of Study 06/24/2022 GANGA Evans Date of 1960 Gender Male Age 61 year(s) Race Room Number 0334 Height: 71 inch, 180.34 cm Corporate ID [id number] Weight: 252 pounds, 114.3 kg # Patient Acct [id number] BSA: 2.33 m^2 BMI: 35.15 kg/m^2 # MR # [id number] [employer] Jeanette Clarke Interpreting Physician Michelle Noe Fellow Referring Nurse Shelly Mondragon, Practitioner DOLLY Interpreting Referring Physician Fellow Type of Study TTE procedure:2D Echocardiogram, M-Mode, Doppler, Color Doppler. Procedure Date Date: 06/24/2022 Start: 09:47 AM Study Location: [facility] Indications:Abnormal ECG. History / Tech. Comments: Abn [...] MD / Result, Unknown Provider - 06/24/2022 [facility] Transthoracic Echocardiography Report (TTE) Patient Name ALLOWAY Date of Study 06/24/2022 GANGA Evans Date of 1960 Gender Male Age 61 year(s) Race Room Number 0334 Height: 71 inch, 180.34 cm Corporate ID [id number] Weight: 252 pounds, 114.3 kg # Patient Acct [id number] BSA: 2.33 m^2 BMI: 35.15 kg/m^2 # MR # [id number] [employer] Jeanette Clarke Interpreting Physician Michelle Noe Fellow Referring Nurse Shelly Mondragon, Practitioner DOLLY Interpreting Referring Physician Fellow Type of Study TTE procedure:2D Echocardiogram, M-Mode, Doppler, Color Doppler. Procedure Date Date: 06/24/2022 Start: 09:47 AM Study Location: [facility] Indications:Abnormal ECG. History / Tech. Comments: Abn [...] Wall E' velocity:0.13 m/s Lateral Wall E/E':9.8 [facility] Work Phone: [facility] Work Phone: Glucose, Whole Bloodon 06-24 Glucose [Mass/Vol] 114 mg/dL High 74 - 100 mg/dL [facility] Interpretation and review of laboratory results Abnormal [facility] Hemoglobin and Hematocriton 06-24-2022 Hematocrit (Bld) [Volume fraction] 25.1 % Low 40.7 - 50.3 % [facility] Hemoglobin (Bld) [Mass/Vol] 7.8 g/dL Low 13.0 - 17.0 g/dL [facility] Interpretation and review of laboratory results Abnormal [facility] Hgb/Hcton 06-24-2022 Hematocrit (Bld) [Volume fraction] 25.1 % Low 40.7-50.3 [facility] Comment on above: Performed By: #### C MPX, CDP #### [facility] [address] [place] [address] Director Food And Bever[employer]: Khadar Tang MD Hemoglobin (Bld) [Mass/Vol] 7.8 g/dL Low 13.0-17.0 [facility] Comment on above: Performed By: #### C MPX, CDP #### [facility] [address] [place], [place] [address]83 Director Food And Beverage: Khadar Tang MD Iron Binding Cap.on 06-25-19 23 % Fe Saturation 19 % Low 20-55 [facility] Comment on above: Performed By: #### C MPX, CDP #### [facility] [address] [place], [place] [id number] Director Food And Beverage: Khadar Tang MD Iron [Mass/Vol] 33 ug/dL Low 59-158 [facility] Comment on above: Performed By: #### C MPX, CDP #### [facility] [address] [place], [place] [address]70[address] Director Food And Beverage: Khadar Tang MD Total Fe Binding Cap 175 ug/dL Low 250-450 [facility] Comment on above: Performed By: #### C MPX, CDP #### [facility] [address] [place] [address] Director Food And Bever[employer]: Khadar Tang MD Unbound Fe Bind Cap 142 ug/dL Normal 112-347 [facility] Comment on above: Performed By: #### C MPX, CDP #### [facility] [address] [place] [address] Director Food And Bever[employer]: Khadar Tang MD Iron and TIBCon 06-24-2022 Interpretation and review of laboratory results Abnormal [facility] Iron [Mass/Vol] 33 ug/dL Low 59 - 158 ug/dL [facility] Iron binding capacity [Mass/Vol] 175 ug/dL Low 250 - 450 ug/dL [facility] Iron Saturation 19 % Low 20 - 55 % [facility] UIBC 142 ug/dL 112 - 347 ug/dL [facility] Laboratory - Microbiology an d Antimicrobial susceptibilityon 06-24-2022 Microorganism or agent identified Nom (Unsp spec) Positive Abnormal [facility] Lipid Panelon 06-24-2022 Cholesterol [Mass/Vol] 147 mg/dL NINF - 200 mg/dL [facility] Comment on above: Cholesterol Guidelines: <200 Desirable 200-240 Borderline >240 Undesirable Cholesterol in HDL [Mass/Vol] 28 mg/dL Low 40 - PINF mg/dL [facility] Comment on above: HDL Guidelines: <40 Undesirable 40-59 Borderline >59 Desirable Cholesterol in LDL [Mass/Vol] 98 mg/dL 0 - 130 mg/dL [facility] Comment on above: LDL Guidelines: <100 Desirable 100-129 Near to/above Desirable 130-159 Borderline >159 Undesirable Direct (measured) LDL and calculated LDL are not interchangeable tests. Cholesterol.total/ Cholesterol in HDL [Mass ratio] 5.3 {ratio} High NINF - 5 [facility] Interpretation and review of laboratory results Abnormal [facility] Triglyceride [Mass/Vol] 107 mg/dL NINF - 150 mg/dL [facility] Comment on above: Triglyceride Guidelines: <150 Desirable 150-199 Borderline 200-499 High >499 Very high Based on AHA Guidelines for fasting triglyceride, December 2011. [facility] Lipid Profileon 06-24-2022 Cholesterol [Mass/Vol] 147 mg/dL Normal <200 [facility] Comment on above: Result Comment: Cholesterol Guidelines: <200 Desirable 200-240 Borderline >240 Undesirable Performed By: #### T ROPI #### [facility] [address] [place] [address] Director Food And Bever[employer]: Khadar Tang MD Cholesterol in HDL [Mass/Vol] 28 mg/dL Low >40 [facility] Comment on above: Result Comment: HDL Guidelines: <40 Undesirable 40-59 Borderline >59 Desirable Performed By: #### T ROPI #### [facility] [address] [place] [address] Director Food And Bever[employer]: Khadar Tang MD Cholesterol in LDL [Mass/Vol] 98 mg/dL Normal 0-130 [facility] Comment on above: Result Comment: LDL Guidelines: <100 Desirable 100-129 Near to/above Desirable 130-159 Borderline >159 Undesirable Direct (measured) LDL and calculated LDL are not interchangeable tests. Performed By: #### T ROPI #### [address] [place] [address] Director Food And Bever[employer]: Khadar Tang MD Cholesterol.total/ Cholesterol in HDL [Mass ratio] 5.3 {ratio} High <5 [facility] Comment on above: Performed By: #### T ROPI #### [address] [place] [address] Director [employer] And Bever[employer]: Khadar Tang MD Triglyceride [Mass/Vol] 107 mg/dL Normal <150 [facility] Comment on above: Result Comment: Triglyceride Guidelines: <150 Desirable 150-199 Borderline 200-499 High >499 Very high Based on AHA Guidelines for fasting triglyceride, December 2011. Performed By: #### T ROPI #### [address] [place] [address] Director Food And Bever[employer]: Khadar Tang MD PTon 06-24-2022 INR Coag (PPP) [Relative time] 1.1 {INR} Normal [facility] Comment on above: Result Comment: Therapeutic Range: Moderate Anticoagulant Intensity: INR = 2.0-3.0 High Anticoagulant Intensity: INR = 2.5-3.5 Performed By: #### C MPX, CDP #### [address] [place] [address] Director [employer] And Bever[employer]: Khadar Tang MD PT Coag (PPP) [Time] 14.8 s Normal 11.9-14.8 [facility] Comment on above: Performed By: #### C MPX, CDP #### [address] [place] [address] Director Food And Bever[employer]: Khadar Tang MD PTTon 06-24-2022 aPTT Coag (Bld) [Time] 35.6 s High [facility] Comment on above: IV Heparin Therapy Range: 62.0-94.0 Interpretation and review of laboratory results Abnormal [facility] Protime-INRon 06-24-2022 INR Coag (PPP) [Relative time] 1.1 {INR} [facility] Comment on above: Therapeutic Range: Moderate Anticoagulant Intensity: INR = 2.0-3.0 High Anticoagulant Intensity: INR = 2.5-3.5 PT Coag (PPP) [Time] 14.8 s [facility] Troponinon 06-24-2022 Troponin, High Sens 57 ng/L Critically high 0-22 [facility] Comment on above: Result Comment: High Sensitivity Troponin values cannot be compared with other Troponin methodologies. Performed By: #### C MPX, CDP #### [facility] [address] [place] [address] [place] [address] Director [employer]: Khadar Tang MD Interpretation and review of laboratory results Abnormal [facility] Troponin I.cardiac DL <= 0.01 ng/mL [Mass/Vol] 57 ng/L Critically high 0 - 22 ng/L [facility] Comment on above: High Sensitivity Tro ponin values cannot be compared with other Troponin methodologies. [facility] Troponin, High Sens 58 ng/L Critically high 0-22 [facility] Comment on above: Result Comment: High Sensitivity Troponin values cannot be compared with other Troponin methodologies. Performed By: #### T ROPI #### [facility] [address] [place] [place] [address] Director [employer]: Khadar Tang MD Interpretation and review of laboratory results Abnormal [facility] Troponin I.cardiac DL <= 0.01 ng/mL [Mass/Vol] 58 ng/L Critically high 0 - 22 ng/L [facility] Comment on above: High Sensitivity Tro ponin values cannot be compared with other Troponin methodologies. [facility] Troponin, High Sens 59 ng/L Critically high 0-22 [facility] Comment on above: Result Comment: High Sensitivity Troponin values cannot be compared with other Troponin methodologies. Performed By: #### C RICHX, CDP #### [facility] [address] [place] [address] Director [employer]: Khadar Tang MD Interpretation and review of laboratory results Abnormal [facility] Troponin I.cardiac DL <= 0.01 ng/mL [Mass/Vol] 59 ng/L Critically high 0 - 22 ng/L [facility] Comment on above: High Sensitivity Tro ponin values cannot be compared with other Troponin methodologies. [facility] Type + Screenon 06-24-2022 Type + Screen Sample Expiration 06/27/2022,2359 Arm Band Number [id number] ABO/Rh(D) A NEGATIVE Antibody Screen NEGATIVE Unit Number [id number] Blood Component Type Leukocyte Reduced Red Cell Unit Division 00 Status of Unit TRANSFUSED Transfusion Status OK TO TRANSFUSE Crossmatch Result COMPATIBLE Normal [facility] Comment on above: Performed By: #### C RICHX, CDP #### [facility] [address] [place] [address] Director [employer]: Khadar Tang MD Vitamin B12 & Folateon 06-24 Cobalamin (Vitamin B12) [Mass/Vol] 446 pg/mL 232 - 1245 pg/mL [facility] Folate [Mass/Vol] 8.2 ng/mL 4.8 - PINF ng/mL [facility] CBC auto differentialon 05-28 Absolute Eos # 0.65 High [facility] Absolute Immature Granulocyte 0.06 [facility] Absolute Lymph # 1.94 [facility] Absolute [place] # 0.72 [facility] Basophils (Bld) [#/Vol] 0.04 10*3/uL [facility] Basophils/100 WBC (Bld) 0 % 0 - 2 % [facility] Eosinophils/100 WBC (Bld) 7 % High 1 - 4 % [facility] Hematocrit (Bld) [Volume fraction] 25.0 % Low 40.7 - 50.3 % [facility] Hemoglobin (Bld) [Mass/Vol] 7.5 g/dL Low 13.0 - 17.0 g/dL [facility] Immature granulocytes/100 WBC (Bld) 1 % High 0 [facility] Interpretation and review of laboratory results Abnormal [facility] Lymphocytes/100 WBC (Bld) 22 % Low 24 - 43 % [facility] MCH (RBC) [Entitic mass] 23.3 pg Low 25.2 - 33.5 pg [facility] MCHC (RBC) [Mass/Vol] 30.0 g/dL 28.4 - 34.8 g/dL [facility] MCV (RBC) [Entitic vol] 77.6 fL Low 82.6 - 102.9 fL [facility] Monocytes/100 WBC (Bld) 8 % 3 - 12 % [facility] NRBC Automated 0.0 0.0 per 100 WBC [facility] Platelet distribution width (Bld) [Ratio] 16.4 % High 11.8 - 14.4 % [facility] Platelet mean volume (Bld) [Entitic vol] 8.7 fL 8.1 - 13.5 fL [facility] Platelets (Bld) [#/Vol] 263 10*3/uL [facility] RBC (Bld) [#/Vol] 3.22 10*6/uL Low 4.21 - 5.7 7 m/uL [facility] Segmented neutrophils/100 WBC (Bld) 62 % 36 - 65 % [facility] Segs Absolute 5.55 [facility] WBC (Bld) [#/Vol] 9.0 10*3/uL [facility] CBC with Diffon 06-23-2022 Abs. Basophil 0.04 k/uL Normal 0.00-0.20 [facility] Comment on above: Performed By: #### C MPX, CDP #### [facility] [address] [place] [address] Director [employer]: Khadar Tang MD Abs.Imm.Granulocyt e 0.06 k/uL Normal 0.00-0.30 [facility] Comment on above: Performed By: #### C MPX, CDP #### [address] [place] [address] Director [employer] And Bever[employer]: Khadar Tang MD Abs.Neutrophil (Seg) 5.55 k/uL Normal 1.50-8.10 [facility] Comment on above: Performed By: #### C MPX, CDP #### [address] [place], [place] [id number] Director [employer]: Khadar Tang MD Basophils/100 WBC (Bld) 0 % Normal 0-2 [facility] Comment on above: Performed By: #### C MPX, CDP #### [address] [place], [place] [address]83 Director [employer]: Khadar Tang MD Eosinophils (Bld) [#/Vol] 0.65 10*3/uL High 0.00-0.44 [facility] Comment on above: Performed By: #### C MPX, CDP #### [address] [place], [place] [id number] Director [employer]: Khadar Tang MD Eosinophils/100 WBC (Bld) 7 % High 1-4 [facility] Comment on above: Performed By: #### C MPX, CDP #### [address] [place], [place] [address]83 Director [employer]: Khadar Tang MD Erythrocyte distribution width (RBC) [Ratio] 16.4 % High 11.8-14.4 [facility] Comment on above: Performed By: #### C MPX, CDP #### [address] [place], [place] [id number] Director [employer]: Khadar Tang MD Hematocrit (Bld) [Volume fraction] 25.0 % Low 40.7-50.3 [facility] Comment on above: Performed By: #### C MPX, CDP #### [facility] [address] [place], [place] [id number] Director [employer]: Khadar Tang MD Hemoglobin (Bld) [Mass/Vol] 7.5 g/dL Low 13.0-17.0 [facility] Comment on above: Performed By: #### C MPX, CDP #### [facility] [address] [place], [facility]83 Director [employer] Bever[employer]: Khadar Tang MD Immature granulocytes/100 WBC (Bld) 1 % High 0 [facility] Comment on above: Performed By: #### C MPX, CDP #### [facility] [address] [place], [facility]83 Director [employer]: Khadar Tang MD Lymphocytes (Bld) [#/Vol] 1.94 10*3/uL Normal 1.10-3.70 [facility] Comment on above: Performed By: #### C MPX, CDP #### [facility] [address] [place], [place] [phone] Director [employer]: Khadar Tang MD Lymphocytes/100 WBC (Bld) 22 % Low 24-43 [facility] Comment on above: Performed By: #### C MPX, CDP #### [facility] [address] [place], [facility]83 Director [employer]: Khadar Tang MD MCH (RBC) [Entitic mass] 23.3 pg Low 25.2-33.5 [facility] Comment on above: Performed By: #### C MPX, CDP #### [facility] [address] [place] [address] Director [employer]: Khadar Tang MD MCHC (RBC) [Mass/Vol] 30.0 g/dL Normal 28.4-34.8 [facility] Comment on above: Performed By: #### C MPX, CDP #### [facility] [address] [place], [place] 1642983 Director [employer]: Khadar Tang MD MCV (RBC) [Entitic vol] 77.6 fL Low 82.6-102.9 [facility] Comment on above: Performed By: #### C MPX, CDP #### [facility] [address] [place], [place] [id number] Director [employer]: Khadar Tang MD Monocytes (Bld) [#/Vol] 0.72 10*3/uL Normal 0.10-1.20 [facility] Comment on above: Performed By: #### C MPX, CDP #### [address] [place], [place] 3161483 Director [employer]: Khadar Tang MD Monocytes/100 WBC (Bld) 8 % Normal 3-12 [facility] Comment on above: Performed By: #### C MPX, CDP #### [address] [place], [place] [phone] Director [employer]: Khadar Tang MD Neutrophil (Seg) 62 % Normal 36-65 [facility] Comment on above: Performed By: #### C MPX, CDP #### [address] [place], [place] [phone] Director [employer]: Khadar Tang MD NRBC Automated 0.0 per 100 WBC Normal 0.0 [facility] Comment on above: Performed By: #### C MPX, CDP #### [facility] [address] [place], [place] [id number] Director [employer]: Khadar Tang MD Platelet mean volume (Bld) [Entitic vol] 8.7 fL Normal 8.1-13.5 [facility] Comment on above: Performed By: #### C MPX, CDP #### [address] [place] [address] Director [employer]: Khadar Tang MD Platelets (Bld) [#/Vol] 263 10*3/uL Normal 138-453 [facility] Comment on above: Performed By: #### C MPX, CDP #### [facility] [address] [place], [place] [id number] Director [employer]: Khadar Tang MD RBC (Bld) [#/Vol] 3.22 10*6/uL Low 4.21-5.77 [facility] Comment on above: Performed By: #### C MPX, CDP #### [facility] [address] [place] [address] Director [employer] Bever[employer]: Khadar Tang MD WBC (Bld) [#/Vol] 9.0 10*3/uL Normal 3.5-11.3 [facility] Comment on above: Performed By: #### C MPX, CDP #### [facility] [address] [place], [place] [id number] Director [employer]: Khadar Tang MD Comp Metabolic Pr/rfx MGon 0 - Albumin [Mass/Vol] 2.9 g/dL Low 3.5-5.2 [facility] Comment on above: Performed By: #### C MPX, CDP #### [facility] [address] [place], [place] [phone] Director [employer]: Khadar Tang MD Albumin/Glob Ratio 0.7 Low 1.0-2.5 [facility] Comment on above: Performed By: #### C MPX, CDP #### [facility] [address] [place] [address] Director [employer]: Khadar Tang MD Alkaline Phos 89 U/L Normal 40-129 [facility] Comment on above: Performed By: #### C MPX, CDP #### [facility] [address] [place] [address] Director [employer]: Khadar Tang MD ALT [Catalytic activity/Vol] 11 U/L Normal 5-41 [facility] Comment on above: Performed By: #### C MPX, CDP #### [facility] [address] [place] [address] Director [employer]: Khadar Tang MD Anion gap [Moles/Vol] 8 mmol/L Low 9-17 [facility] Comment on above: Performed By: #### C MPX, CDP #### [facility] [address] [place], [place] [id number] Director [employer]: Khadar Tang MD AST [Catalytic activity/Vol] 12 U/L Normal <40 [facility] Comment on above: Performed By: #### C MPX, CDP #### [facility] [address] [place], [place] [id number] Director [employer]: Khadar Tang MD Bilirubin [Mass/Vol] 0.2 mg/dL Low 0.3-1.2 [facility] Comment on above: Performed By: #### C MPX, CDP #### [facility] [address] [place], [place] 1872683 Director [employer] Bever[employer]: Khadar Tang MD BUN/CRE Ratio 25 High 9-20 [facility] Comment on above: Performed By: #### C MPX, CDP #### [facility] [address] [place], [place] [address]32[address]83 Director [employer]: Khadar Tang MD Calcium [Mass/Vol] 9.0 mg/dL Normal 8.6-10.4 [facility] Comment on above: Performed By: #### C MPX, CDP #### [facility] [address] [place] [address] Director [employer]: Khadar Tang MD Chloride [Moles/Vol] 115 mmol/L High 98-107 [facility] Comment on above: Performed By: #### C MPX, CDP #### [facility] [address] [place] [address] Director [employer] Bever[employer]: Khadar Tang MD CO2 [Moles/Vol] 17 mmol/L Low 20-31 [facility] Comment on above: Performed By: #### C MPX, CDP #### [facility] [address] [place] [address] Director [employer]: Khadar Tang MD Creatinine [Mass/Vol] 1.55 mg/dL High 0.70-1.20 [facility] Comment on above: Performed By: #### C MPX, CDP #### [facility] [address] [place] [address] Director [employer]: Khadar Tang MD GFR/1.73 sq M.predicted among non-blacks MDRD (S/P/Bld) [Vol rate/Area] 51 mL/min/{1.73_m2} Low >60 [facility] Comment on above: Result Comment: These results [...] Performed By: #### C MPX, CDP #### [facility] [address] [place] [address] Director [employer]: Khadar Tang MD Glucose [Mass/Vol] 119 mg/dL High 70-99 [facility] Comment on above: Performed By: #### C MPX, CDP #### [facility] [address] [place] [address] Director [employer] Bever[employer]: Khadar Tang MD Potassium [Moles/Vol] 5.4 mmol/L High 3.7-5.3 [facility] Comment on above: Performed By: #### C MPX, CDP #### [facility] [address] [place] [address] Director Food [employer]: Khadar Tang MD Protein [Mass/Vol] 7.1 g/dL Normal 6.4-8.3 [facility] Comment on above: Performed By: #### C MPX, CDP #### [facility] [address] [place] [address] Director Food And Bever[employer]: Khadar Tang MD Sodium [Moles/Vol] 140 mmol/L Normal 135-144 [facility] Comment on above: Performed By: #### C MPX, CDP #### [facility] [address] [place] [address] Director Food [employer] Bever[employer]: Khadar Tang MD Urea nitrogen [Mass/Vol] 38 mg/dL High 8-23 [facility] Comment on above: Performed By: #### C MPX, CDP #### [facility] [address] [place] [address] Director Food [employer]: Khadar Tang MD Comprehensive Metabolic Pane l w/ Reflex to MGon 06-23-2022 Albumin [Mass/Vol] 2.9 g/dL Low 3.5 - 5.2 g/dL [facility] Albumin/Globulin [Mass ratio] 0.7 {ratio} Low 1.0 - 2.5 [facility] ALP [Catalytic activity/Vol] 89 U/L 40 - 129 U/L [facility] ALT [Catalytic activity/Vol] 11 U/L 5 - 41 U/L [facility] Anion gap [Moles/Vol] 8 mmol/L Low 9 - 17 mmol/L [facility] AST [Catalytic activity/Vol] 12 U/L NINF - 40 U/L [facility] Bilirubin [Mass/Vol] 0.2 mg/dL Low 0.3 - 1.2 mg/dL [facility] Calcium [Mass/Vol] 9.0 mg/dL 8.6 - 10. 4 mg/dL [facility] Chloride [Moles/Vol] 115 mmol/L High 98 - 107 mmol/L [facility] [employer] [employer] CO2 [Moles/Vol] 17 mmol/L Low 20 - 31 mmol/L [facility] Creatinine [Mass/Vol] 1.55 mg/dL High 0.70 - 1.20 mg/dL [facility] GFR/1.73 sq M.predicted MDRD (S/P/Bld) [Vol rate/Area] 51 mL/min/{1.73_m2} Low - PINF [facility] [employer] Comment on above: These results are not [...] 119 mg/dL High 70 - 99 mg/dL [facility] Interpretation and review of laboratory results Abnormal [facility] Potassium [Moles/Vol] 5.4 mmol/L High 3.7 - 5.3 mmol/L [facility] [employer] Protein [Mass/Vol] 7.1 g/dL 6.4 - 8.3 g/dL [facility] Sodium [Moles/Vol] 140 mmol/L 135 - 144 mmol/L [facility] Urea nitrogen [Mass/Vol] 38 mg/dL High 8 - 23 mg/dL [facility] Urea nitrogen/Creatinin e (Bld) [Mass ratio] 25 High 9 - 20 [facility] [employer] [facility] [employer] EKG 12 LeadOrdered By: Michelle de la rosa on 06-23-2022 Atrial Rate 60 BPM [facility] [employer]90 Work Phone: P [employer] 55 degrees [facility] [employer] Work Phone: P-R Interval 182 ms [facility] [employer] Work Phone: Q-T Interval 388 ms Weiju [facility] [employer] Work Phone: QRS Duration 88 ms [facility] [employer] Work Phone: QTc Calculation (Bazett) 388 ms RAIN [employer] Work Phone: R [employer] 15 degrees [facility] [employer] Work Phone: T [employer] 40 degrees [facility]ITALArch [employer] Work Phone: Ventricular Rate 60 BPM RAIN [employer] [facility] [employer] Work Phone: RAIN [facility]ITAL[facility] [employer] Work Phone: EKG 12 Leadon 06-23-2022 Poor data qualit y, interpretation may be adversely affected Normal sinus rhythm Normal ECG When compared with ECG of 22-JUN-2022 13:14, (unconfirmed) Borderline criteria for Anterolateral infarct are no longer Present Criteria for Inferior infarct are no longer Present T wave inversion no longer evident in Inferior leads Confirmed by Michelle Noe MD ([id number]) on 06/23/2022 3:18:16 PM [facility] Michelle Noe MD - 06/23/2022 Poor data quality, interpretation may be adversely affected Normal sinus rhythm Normal ECG When compared with ECG of 22-JUN-2022 13:14, (unconfirmed) Borderline criteria for Anterolateral infarct are no longer Present Criteria for Inferior infarct are no longer Present T wave inversion no longer evident in Inferior leads Confirmed by Michelle Noe MD ([id number]) on 06/23/2022 3:18:16 PM [employer] Work Phone: EKG Rhythm Stripon 3 [facility] Glucose, Whole Bloodon 06-23 Glucose [Mass/Vol] 230 mg/dL High 74 - 100 mg/dL [facility] Interpretation and review of laboratory results Abnormal [facility] Urinalysison 06-23-2022 Bilirubin Urine Negative NEGATIVE [facility] Right[employer] Color, UA Yellow Yellow [facility] Right90 Glucose Auto test strip (U) [Mass/Vol] Negative NEGATIVE [facility] Ketones (U) [Mass/Vol] Negative NEGATIVE [facility] Leukocyte esterase Auto test strip Ql (U) Negative NEGATIVE [facility] Nitrite Auto test strip Ql (U) Negative NEGATIVE [facility] Protein (U) [Mass/Vol] 6.0 mg/dL 5.0 - 9.0 [facility] Protein (U) [Mass/Vol] Negative NEGATIVE [facility] Specific [place], UA 1.020 1.010 - 1.020 [facility] Turbidity UA Clear Clear [facility] Urine Hgb Negative NEGATIVE [facility] Urobilinogen, Urine Normal Normal [facility] Urinalysis, Routineon 2022 Bilirubin, SemiQt,Ur Negative Normal NEG [facility] Comment on above: Performed By: #### U A #### [facility] [address] [place] [address] Dr. [place], [place] [phone] Director Food And Beverage: Khadar Tang MD Blood, Urine Negative Normal NEG [facility] Comment on above: Performed By: #### U A #### [facility] [address] [place] [address] Dr. [place], [place] [phone] Director Food And Bever[employer]: Khadar Tang MD Clarity (U) Clear Normal CLEAR [facility] Comment on above: Performed By: #### U A #### [facility] [address] [place] [address] Dr. [place], [place] [id number] Director Food And Beverage: Khadar Tang MD Color (U) Yellow Normal YEL [facility] Comment on above: Performed By: #### U A #### [facility] [address] [place], [place] [phone] Director Food And Beverage: Khadar Tang MD Glucose Ql (U) Negative Normal NEG [facility] in [facility] Comment on above: Performed By: #### U A #### [facility] [address] [place] [address] Director Food And Beverage: Khadar Tang MD Ketones Ql (U) Negative Normal NEG [facility] in Hospital Comment on above: Performed By: #### U A #### [facility] [address] [place], [place] [id number] Director Food And Beverage: Khadar Tang MD Leukocyte esterase Test strip Ql (U) Negative Normal NEG [facility] Comment on above: Performed By: #### U A #### [facility] [address] [place] [address] Dr. [place], [place] [phone] Director Food And Beverage: Khadar Tang MD Nitrite,Ur Negative Normal NEG [facility] Comment on above: Performed By: #### U A #### [facility] [address] [place] [address] Dr. [place], [facility]83 Director Food And Beverage: Khadar Tang MD PH,Ur 6.0 Normal 5.0-9.0 [facility] Comment on above: Performed By: #### U A #### [facility] [address] [place] [address] Dr. Suárez, [facility]83 Director Food And Beverage: Khadar Tang MD Protein Ql (U) Negative Normal NEG [facility] Comment on above: Performed By: #### U A #### [facility] [address] [place] [address] Dr. Suárez, [facility]83 Director Food And Beverage: Khadar Tang MD Spec. [place],Ur 1.020 Normal 1.010-1.020 [facility] Comment on above: Performed By: #### U A #### [facility] [address] [place] [address] Dr. Suárez, [facility]83 Director Food And Beverage: Khadar Tang MD Urobilinogen,Ur Normal Normal NORM [facility] Comment on above: Performed By: #### U A #### [address] [place] [address] Director Food And Beverage: Khadar Tang MD XR ANKLE RIGHT (MIN [...] Derrick Squires MD 06/23/22 Final result Normal [facility] 1. Nonspecific diffu se subcutaneous edema. 2. Periostitis at the lateral aspect of the fibula distally. There was osteomyelitis in this region previously. This could reflect chronic osteomyelitis. Elsewhere, there is no subcutaneous air or evidence of osteomyelitis. [facility] CON[facility] EXAMINATION: THREE XRAY VIEWS OF THE [...] lesion is noted. Calcaneal spurring appears unchanged. [facility] Derrick Squires MD - 06/23/2022 EXAMINATION: [...] no subcutaneous air or evidence of osteomyelitis. [employer] Work Phone: Radiology Study observation (narrative) [employer] Work Phone: XR ANKLE RIGHT (MIN 3 VIEWS) Ordered By: Derrick Squires on 06-23-2022 [employer] Work Phone: Basic Metabolic Panelon 05-28 Anion gap [Moles/Vol] 9 mmol/L 9 - 17 mmol/L [employer] Calcium [Mass/Vol] 9.5 mg/dL 8.6 - 10. 4 mg/dL [employer] Chloride [Moles/Vol] 112 mmol/L High 98 - 107 mmol/L [employer] CO2 [Moles/Vol] 17 mmol/L Low 20 - 31 mmol/L [employer] Creatinine [Mass/Vol] 2 mg/dL High 0.70 - 1.20 mg/dL [employer] GFR/1.73 sq M.predicted MDRD (S/P/Bld) [Vol rate/Area] 38 mL/min/{1.73_m2} Low - PINF [employer] Comment on above: These results are not [...] 137 mg/dL High 70 - 99 mg/dL [employer] Interpretation and review of laboratory results Abnormal [employer] Potassium [Moles/Vol] 6.1 mmol/L Critically high 3.7 - 5.3 mmol/L [employer] Sodium [Moles/Vol] 138 mmol/L 135 - 144 mmol/L [employer] Urea nitrogen [Mass/Vol] 45 mg/dL High 8 - 23 mg/dL [facility] Urea nitrogen/Creatinin e (Bld) [Mass ratio] 23 High 9 - 20 [facility] Basic Metabolic Profon 06-22 Potassium [Moles/Vol] 6.1 mmol/L Critically high 3.7-5.3 [facility] Comment on above: Performed By: #### T ROPI #### [facility] [address] [place], [place] [id number] Director Food And Beverage: Khadar Tang MD Anion gap [Moles/Vol] 9 mmol/L Normal 9-17 [facility] Comment on above: Performed By: #### T ROPI #### [facility] [address] [place], [place] [id number] Director Food And Beverage: Khadar Tang MD BUN/CRE Ratio 23 High 9-20 [facility] Comment on above: Performed By: #### T ROPI #### [facility] [address] [place], [place] [id number] Director Food And Beverage: Khadar Tang MD Calcium [Mass/Vol] 9.5 mg/dL Normal 8.6-10.4 [facility] Comment on above: Performed By: #### T ROPI #### [facility] [address] [place], [place] [id number] Director Food And Beverage: Khadar Tang MD Chloride [Moles/Vol] 112 mmol/L High 98-107 [facility] Comment on above: Performed By: #### T ROPI #### [facility] [address] [place], [place] [id number] Director Food And Beverage: Khadar Tang MD CO2 [Moles/Vol] 17 mmol/L Low 20-31 [facility] Comment on above: Performed By: #### T ROPI #### [facility] [address] [place], [place] [address]183 Director Food And Beverage: Khadar Tang MD Creatinine [Mass/Vol] 2.00 mg/dL High 0.70-1.20 [facility] Comment on above: Performed By: #### T ROPI #### [facility] [address] [place] [address] Director Food And Bever[employer]: Khadar Tang MD GFR/1.73 sq M.predicted among non-blacks MDRD (S/P/Bld) [Vol rate/Area] 38 mL/min/{1.73_m2} Low >60 [facility] Comment on above: Result Comment: These results [...] secretion. Performed By: #### T ROPI #### [facility] [address] [place] [address] Director Food And Beverage: Khadar Tang MD Glucose [Mass/Vol] 137 mg/dL High 70-99 [facility] Comment on above: Performed By: #### T ROPI #### [facility] [address] [place], [place] [id number] Director Food And Beverage: Khadar Tang MD Sodium [Moles/Vol] 138 mmol/L Normal 135-144 [facility] Comment on above: Performed By: #### T ROPI #### [facility] [address] [place], [place] [id number] Director Food And Beverage: Khadar Tang MD Urea nitrogen [Mass/Vol] 45 mg/dL High 8-23 [facility] Comment on above: Performed By: #### T ROPI #### [facility] [address] [place] [address] Director Food And Bever[employer]: Khadar Tang MD CBC with Auto Differentialon 06-22-2022 Absolute Eos # 0.86 High [facility] Absolute Immature Granulocyte 0.09 [facility] Absolute Lymph # 1.97 [facility] Absolute [place] # 0.88 [facility] Basophils (Bld) [#/Vol] 0.05 10*3/uL [facility] Basophils/100 WBC (Bld) 0 % 0 - 2 % [facility] Eosinophils/100 WBC (Bld) 7 % High 1 - 4 % [facility] Hematocrit (Bld) [Volume fraction] 27.6 % Low 40.7 - 50.3 % [facility] Hemoglobin (Bld) [Mass/Vol] 8.3 g/dL Low 13.0 - 17.0 g/dL [facility] Immature granulocytes/100 WBC (Bld) 1 % High 0 [facility] Interpretation and review of laboratory results Abnormal [facility] Lymphocytes/100 WBC (Bld) 15 % Low 24 - 43 % [facility] MCH (RBC) [Entitic mass] 23.3 pg Low 25.2 - 33.5 pg [facility] MCHC (RBC) [Mass/Vol] 30.1 g/dL 28.4 - 34.8 g/dL [facility] MCV (RBC) [Entitic vol] 77.5 fL Low 82.6 - 102.9 fL [facility] Monocytes/100 WBC (Bld) 7 % 3 - 12 % [facility] NRBC Automated 0.0 0.0 per 100 WBC [facility] Platelet distribution width (Bld) [Ratio] 16.2 % High 11.8 - 14.4 % [facility] Platelet mean volume (Bld) [Entitic vol] 8.6 fL 8.1 - 13.5 fL [facility] Platelets (Bld) [#/Vol] 338 10*3/uL [facility] RBC (Bld) [#/Vol] 3.56 10*6/uL Low 4.21 - 5.7 7 m/uL [facility] Segmented neutrophils/100 WBC (Bld) 70 % High 36 - 65 % [facility] Segs Absolute 8.91 High [facility] WBC (Bld) [#/Vol] 12.8 10*3/uL High [facility] Absolute Eos # 0.84 High [facility] Absolute Immature Granulocyte 0.06 [facility] Absolute Lymph # 1.69 [facility] Absolute [place] # 0.82 [facility] Basophils (Bld) [#/Vol] 0.04 10*3/uL [facility] Basophils/100 WBC (Bld) 0 % 0 - 2 % [facility] Eosinophils/100 WBC (Bld) 7 % High 1 - 4 % [facility] Hematocrit (Bld) [Volume fraction] 27.1 % Low 40.7 - 50.3 % [facility] Hemoglobin (Bld) [Mass/Vol] 8.7 g/dL Low 13.0 - 17.0 g/dL [facility] Immature granulocytes/100 WBC (Bld) 1 % High 0 [facility] Interpretation and review of laboratory results Abnormal [facility] Lymphocytes/100 WBC (Bld) 14 % Low 24 - 43 % [facility] MCH (RBC) [Entitic mass] 25.3 pg 25.2 - 33.5 pg [facility] MCHC (RBC) [Mass/Vol] 32.1 g/dL 28.4 - 34.8 g/dL [facility] MCV (RBC) [Entitic vol] 78.8 fL Low 82.6 - 102.9 fL [facility] Monocytes/100 WBC (Bld) 7 % 3 - 12 % [facility] NRBC Automated 0.0 0.0 per 100 WBC [facility] Platelet distribution width (Bld) [Ratio] 16.4 % High 11.8 - 14.4 % [facility] Platelet mean volume (Bld) [Entitic vol] 9.4 fL 8.1 - 13.5 fL [facility] Platelets (Bld) [#/Vol] 345 10*3/uL [facility] RBC (Bld) [#/Vol] 3.44 10*6/uL Low 4.21 - 5.7 7 m/uL [facility] Segmented neutrophils/100 WBC (Bld) 71 % High 36 - 65 % [facility] Segs Absolute 9.06 High [facility] WBC (Bld) [#/Vol] 12.5 10*3/uL High [facility] CBC with Diffon 06-22-2022 Abs. Basophil 0.05 k/uL Normal 0.00-0.20 [facility] Comment on above: Performed By: #### C DP, MG, CP #### [facility] [address] [place], [place] [id number] Director Food And Beverage: Khadar Tang MD Abs.Imm.Granulocyt e 0.09 k/uL Normal 0.00-0.30 [facility] Comment on above: Performed By: #### C DP, MG, CP #### [address] Suá[place], [facility]83 Director Food And Beverage: Khadar Tang MD Abs.Neutrophil (Seg) 8.91 k/uL High 1.50-8.10 [facility] Comment on above: Performed By: #### C DP, MG, CP #### [address] [place], [place] [id number] Director Food And Beverage: Khadar Tang MD Basophils/100 WBC (Bld) 0 % Normal 0-2 [facility] Comment on above: Performed By: #### C DP, MG, CP #### [facility] [address] [place], [place] [id number] Director Food And Beverage: Khadar Tang MD Eosinophils (Bld) [#/Vol] 0.86 10*3/uL High 0.00-0.44 [facility] Comment on above: Performed By: #### C DP, MG, CP #### [facility] [address] [place] [address] Director Food And Beverage: Khadar Tang MD Eosinophils/100 WBC (Bld) 7 % High 1-4 [facility] Comment on above: Performed By: #### C DP, MG, CP #### [address] [place], [facility]83 Director [employer] Bever[employer]: Khadar Tang MD Erythrocyte distribution width (RBC) [Ratio] 16.2 % High 11.8-14.4 [facility] Comment on above: Performed By: #### C DP, MG, CP #### [address] [place], [facility]83 Director Food And Bever[employer]: Khadar Tang MD Hematocrit (Bld) [Volume fraction] 27.6 % Low 40.7-50.3 [facility] Comment on above: Performed By: #### C DP, MG, CP #### [address] [place], [facility]83 Director Food [employer] Bever[employer]: Khadar Tang MD Hemoglobin (Bld) [Mass/Vol] 8.3 g/dL Low 13.0-17.0 [facility] Comment on above: Performed By: #### C DP, MG, CP #### [address] [place], [place] [address] Director Food And Beverage: Khadar Tang MD Immature granulocytes/100 WBC (Bld) 1 % High 0 [facility] Comment on above: Performed By: #### C DP, MG, CP #### [address] Suá[place], [facility]83 Director Food [employer] Bever[employer]: Khadar Tang MD Lymphocytes (Bld) [#/Vol] 1.97 10*3/uL Normal 1.10-3.70 [facility] Comment on above: Performed By: #### C DP, MG, CP #### [address] Suá[place], [facility]83 Director Food And Beverage: Khadar Tang MD Lymphocytes/100 WBC (Bld) 15 % Low 24-43 [facility] Comment on above: Performed By: #### C DP, MG, CP #### [facility] [address] [place], [place] [address] Director [employer]: Khadar Tang MD MCH (RBC) [Entitic mass] 23.3 pg Low 25.2-33.5 [facility] Comment on above: Performed By: #### C DP, MG, CP #### [facility] [address] [place], [place] [address] Director [employer]: Khadar Tang MD MCHC (RBC) [Mass/Vol] 30.1 g/dL Normal 28.4-34.8 [facility] Comment on above: Performed By: #### C DP, MG, CP #### [address] [place] [address] Director Food And Beverage: Khadar Tang MD MCV (RBC) [Entitic vol] 77.5 fL Low 82.6-102.9 [facility] Comment on above: Performed By: #### C DP, MG, CP #### [address] [place], [place] [address] Director Food And Bever[employer]: Khadar Tang MD Monocytes (Bld) [#/Vol] 0.88 10*3/uL Normal 0.10-1.20 [facility] Comment on above: Performed By: #### C DP, MG, CP #### [facility] [address] [place] [address] Dr. Suárez, [place] [address] Director Food And Bever[employer]: Khadar Tang MD Monocytes/100 WBC (Bld) 7 % Normal 3-12 [facility] Comment on above: Performed By: #### C DP, MG, CP #### [facility] [address] [place], [facility]83 Director Food And Beverage: Khadar Tang MD Neutrophil (Seg) 70 % High 36-65 [facility] Comment on above: Performed By: #### C DP, MG, CP #### [address] [place], [place] [address] Director Food And Bever[employer]: Khadar Tang MD NRBC Automated 0.0 per 100 WBC Normal 0.0 [facility] Comment on above: Performed By: #### C DP, MG, CP #### [address] [place], [facility]83 Director Food And Beverage: Khadar Tang MD Platelet mean volume (Bld) [Entitic vol] 8.6 fL Normal 8.1-13.5 [facility] Comment on above: Performed By: #### C DP, MG, CP #### [address] [place], [place] [address] Director Food And Bever[employer]: Khadar Tang MD Platelets (Bld) [#/Vol] 338 10*3/uL Normal 138-453 [facility] Comment on above: Performed By: #### C DP, MG, CP #### [address] [place], [facility]73 ( Director Food And Beverage: Khadar Tang MD RBC (Bld) [#/Vol] 3.56 10*6/uL Low 4.21-5.77 [facility] Comment on above: Performed By: #### C DP, MG, CP #### [address] [place], [place] [address] Director Food And Beverage: Khadar Tang MD WBC (Bld) [#/Vol] 12.8 10*3/uL High 3.5-11.3 [facility] Comment on above: Performed By: #### C DP, MG, CP #### [address] [place] [address] Director Food And Beverage: Khadar Tang MD Abs. Basophil 0.04 k/uL Normal 0.00-0.20 [facility] Comment on above: Performed By: #### T ROPI #### [facility] [address] [place], [place] [id number] Director Food And Beverage: Khadar Tang MD Abs.Imm.Granulocyt e 0.06 k/uL Normal 0.00-0.30 [facility] Comment on above: Performed By: #### T ROPI #### [address] [place], [facility]83 Director Food And Bever[employer]: Khadar Tang MD Abs.Neutrophil (Seg) 9.06 k/uL High 1.50-8.10 [facility] Comment on above: Performed By: #### T ROPI #### [address] [place] [id number] Director Food And Beverage: Khadar Tang MD Basophils/100 WBC (Bld) 0 % Normal 0-2 [facility] Comment on above: Performed By: #### T ROPI #### [address] [place], [facility]83 Director Food And Beverage: Khadar Tang MD Eosinophils (Bld) [#/Vol] 0.84 10*3/uL High 0.00-0.44 [facility] Comment on above: Performed By: #### T ROPI #### [address] [place], [facility]83 Director Food And Beverage: Khadar Tang MD Eosinophils/100 WBC (Bld) 7 % High 1-4 [facility] Comment on above: Performed By: #### T ROPI #### [address] [place], [facility]83 Director Food And Beverage: Khadar Tang MD Erythrocyte distribution width (RBC) [Ratio] 16.4 % High 11.8-14.4 [facility] Comment on above: Performed By: #### T ROPI #### [address] [place], [facility]83 Director Food And Beverage: Khadar Tang MD Hematocrit (Bld) [Volume fraction] 27.1 % Low 40.7-50.3 [facility] Comment on above: Performed By: #### T ROPI #### [facility] [address] [place], [place] [id number] Director Food And Bever[employer]: Khadar Tang MD Hemoglobin (Bld) [Mass/Vol] 8.7 g/dL Low 13.0-17.0 [facility] Comment on above: Performed By: #### T ROPI #### [facility] [address] [place] [address] Dr. [place], [place] [id number] Director Food And Beverage: Khadar Tang MD Immature granulocytes/100 WBC (Bld) 1 % High 0 [facility] Comment on above: Performed By: #### T ROPI #### [address] [place], [facility]83 Director Food And Beverage: Khadar Tang MD Lymphocytes (Bld) [#/Vol] 1.69 10*3/uL Normal 1.10-3.70 [facility] Comment on above: Performed By: #### T ROPI #### [facility] [address] [place] [address] Dr. [place], [place] [id number] Director Food And Bever[employer]: Khadar Tang MD Lymphocytes/100 WBC (Bld) 14 % Low 24-43 [facility] Comment on above: Performed By: #### T ROPI #### [facility] [address] [place] [address] Dr. Suárez, [facility]83 Director [employer]: Khadar Tang MD MCH (RBC) [Entitic mass] 25.3 pg Normal 25.2-33.5 [facility] Comment on above: Performed By: #### T ROPI #### [facility] [address] [place] [address] [place]. [place], [place] [address] Director Food And Beverage: Khadar Tang MD MCHC (RBC) [Mass/Vol] 32.1 g/dL Normal 28.4-34.8 [facility] Comment on above: Performed By: #### T ROPI #### [facility] [address] [place] [address] Director Food And Bever[employer]: Khadar Tang MD MCV (RBC) [Entitic vol] 78.8 fL Low 82.6-102.9 [facility] Comment on above: Performed By: #### T ROPI #### [facility] [address] [place] [facility]83 Director Food And Beverage: Khadar Tang MD Monocytes (Bld) [#/Vol] 0.82 10*3/uL Normal 0.10-1.20 [facility] Comment on above: Performed By: #### T ROPI #### [address] [place], [place] [phone] Director Food And Bever[employer]: Khadar Tang MD Monocytes/100 WBC (Bld) 7 % Normal 3-12 [facility] Comment on above: Performed By: #### T ROPI #### [address] [place], [place] [phone] Director Food And Bever[employer]: Khadar Tang MD Neutrophil (Seg) 71 % High 36-65 [facility] Comment on above: Performed By: #### T ROPI #### [address] [place], [place] [address]83 Director Food And Bever[employer]: Khadar Tang MD NRBC Automated 0.0 per 100 WBC Normal 0.0 [facility] Comment on above: Performed By: #### T ROPI #### [facility] [address] [place], [place] [address]83 Director Food And Bever[employer]: Khadar Tang MD Platelet mean volume (Bld) [Entitic vol] 9.4 fL Normal 8.1-13.5 [facility] Comment on above: Performed By: #### T ROPI #### [address] [place] [id number] Director Food And Beverage: Khadar Tang MD Platelets (Bld) [#/Vol] 345 10*3/uL Normal 138-453 [facility] Comment on above: Performed By: #### T ROPI #### [facility] [address] [place], [place] 1911[address] Director Food And Beverage: Khadar Tang MD RBC (d) [#/Vol] 3.44 10*6/uL Low 4.21-5.77 [facility] Comment on above: Performed By: #### T ROPI #### [facility] [address] [place], [place] [address]83 Director Food And Beverage: Khadar Tang MD WBC (d) [#/Vol] 12.5 10*3/uL High 3.5-11.3 [facility] Comment on above: Performed By: #### T ROPI #### [facility] [address] [place], [place] [phone] Director Food And Beverage: Khadar Tang MD [facility] Albumin [Mass/Vol] 3.2 g/dL Low 3.5 - 5.2 g/dL [facility] Albumin/Globulin [Mass ratio] 0.7 {ratio} Low 1.0 - 2.5 [facility] ALP [Catalytic activity/Vol] 101 U/L 40 - 129 U/L [facility] ALT [Catalytic activity/Vol] 8 U/L 5 - 41 U/L [facility] Anion gap [Moles/Vol] 11 mmol/L 9 - 17 mmol/L [facility] AST [Catalytic activity/Vol] 13 U/L NINF - 40 U/L [facility] Bilirubin [Mass/Vol] mg/dL Low 0.3 - 1.2 mg/dL [facility] Calcium [Mass/Vol] 9.1 mg/dL 8.6 - 10. 4 mg/dL [facility] Chloride [Moles/Vol] 110 mmol/L High 98 - 107 mmol/L [facility] CO2 [Moles/Vol] 16 mmol/L Low 20 - 31 mmol/L [facility] Creatinine [Mass/Vol] 1.93 mg/dL High 0.70 - 1.20 mg/dL [facility] GFR/1.73 sq M.predicted MDRD (S/P/Bld) [Vol rate/Area] 39 mL/min/{1.73_m2} Low - PINF [facility] Comment on above: These results are not [...] 148 mg/dL High 70 - 99 mg/dL [facility] Interpretation and review of laboratory results Abnormal [facility] Potassium [Moles/Vol] 6.3 mmol/L Critically high 3.7 - 5.3 mmol/L [facility] Protein [Mass/Vol] 8.1 g/dL 6.4 - 8.3 g/dL [facility] Sodium [Moles/Vol] 137 mmol/L 135 - 144 mmol/L [facility] Urea nitrogen [Mass/Vol] 49 mg/dL High 8 - 23 mg/dL [facility] Urea nitrogen/Creatinin e (Bld) [Mass ratio] 25 High 9 - 20 [facility] Comp Metabolic Profon 2022 Bilirubin [Mass/Vol] mg/dL Low 0.3-1.2 [facility] Comment on above: Performed By: #### C DP, MG, CP #### [facility] [address] [place] [address] Director [employer] And Bever[employer]: Khadar Tang MD Potassium [Moles/Vol] 6.3 mmol/L Critically high 3.7-5.3 [facility] Comment on above: Performed By: #### C DP, MG, CP #### [facility] [address] [place] [address] Director Food And Beverage: Khadar Tang MD Albumin [Mass/Vol] 3.2 g/dL Low 3.5-5.2 [facility] Comment on above: Performed By: #### C DP, MG, CP #### [facility] [address] [place], [place] [id number] Director Food And Beverage: Khadar Tang MD Albumin/Glob Ratio 0.7 Low 1.0-2.5 [facility] Comment on above: Performed By: #### C DP, MG, CP #### [facility] [address] [place], [place] [phone] Director Food And Beverage: Khadar Tang MD Alkaline Phos 101 U/L Normal 40-129 [facility] Comment on above: Performed By: #### C DP, MG, CP #### [facility] [address] [place], [place] [id number] Director [employer] And [employer]: Khadar Tang MD ALT [Catalytic activity/Vol] 8 U/L Normal 5-41 [facility] Comment on above: Performed By: #### C DP, MG, CP #### [address] [place], [place] [address]83 Director Food And Beverage: Khadar Tang MD Anion gap [Moles/Vol] 11 mmol/L Normal 9-17 [facility] Comment on above: Performed By: #### C DP, MG, CP #### [facility] [address] [place], [place] [phone] Director Food And [employer]: Khadar Tang MD AST [Catalytic activity/Vol] 13 U/L Normal <40 [facility] Comment on above: Performed By: #### C DP, MG, CP #### [facility] [address] [place], [place] [phone] Director Food [employer]: Khadar Tang MD BUN/CRE Ratio 25 High 9-20 [facility] Comment on above: Performed By: #### C DP, MG, CP #### [facility] [address] [place], [place] 1600483 Director Food And [employer]: Khadar Tang MD Calcium [Mass/Vol] 9.1 mg/dL Normal 8.6-10.4 [facility] Comment on above: Performed By: #### C DP, MG, CP #### [facility] [address] [place] [id number] Director Food And Beverage: Khadar Tang MD Chloride [Moles/Vol] 110 mmol/L High 98-107 [facility] Comment on above: Performed By: #### C DP, MG, CP #### [address] [place] [id number] Director Food And Beverage: Khadar Tang MD CO2 [Moles/Vol] 16 mmol/L Low 20-31 [facility] Comment on above: Performed By: #### C DP, MG, CP #### [address] [place], [place] [phone] Director Food And Beverage: Khadar Tang MD Creatinine [Mass/Vol] 1.93 mg/dL High 0.70-1.20 [facility] Comment on above: Performed By: #### C DP, MG, CP #### [address] [place] [id number] Director Food And Bever[employer]: Khadar Tang MD GFR/1.73 sq M.predicted among non-blacks MDRD (S/P/Bld) [Vol rate/Area] 39 mL/min/{1.73_m2} Low >60 [facility] Comment on above: Result Comment: These results [...] By: #### C DP, MG, CP #### [facility] [address] [place], [place] [phone] Director Food And Bever[employer]: Khadar Tang MD Glucose [Mass/Vol] 148 mg/dL High 70-99 [facility] Comment on above: Performed By: #### C DP, MG, CP #### [facility] [address] [place], [place] 8474383 Director Food And Bever[employer]: Khadar Tang MD Protein [Mass/Vol] 8.1 g/dL Normal 6.4-8.3 [facility] Comment on above: Performed By: #### C DP, MG, CP #### [facility] [address] [place], [place] 48[address]83 Director Food And Beverage: Khadar Tang MD Sodium [Moles/Vol] 137 mmol/L Normal 135-144 [facility] Comment on above: Performed By: #### C DP, MG, CP #### [facility] [address] [place], [place] 5363383 Director Food [employer] Beverage: Khadar Tang MD Urea nitrogen [Mass/Vol] 49 mg/dL High 8-23 [facility] Comment on above: Performed By: #### C DP, MG, CP #### [facility] [address] [place], [place] [phone] Director Food And Beverage: Khadar Tang MD EKG 12 LeadOrdered By: Michelle de la rosa on 06-22-2022 Atrial Rate 58 BPM [facility] [employer] Work Phone: P [employer] 66 degrees [facility]ITAL[facility] [employer] [employer] Phone: P-R Interval 148 ms [facility] [employer] Phone: Q-T Interval 394 ms [facility] [employer] Work Phone: QRS Duration 94 ms [facility] [employer] Phone: QTc Calculation (Bazett) 386 ms [facility] Work Phone: R [employer] 64 degrees RAIN [facility]ITAL[facility] [employer] Work Phone: T [employer] -8 degrees RAIN [employer] Work Phone: Ventricular Rate 58 BPM RAIN WILLIAM [employer] Work Phone: RAIN POWELL [employer] Work Phone: EKG 12 Leadon 06-22-2022 Sinus bradycardia Inferior infarct , age undetermined Possible Anterolateral infarct , age undetermined Abnormal ECG When compared with ECG of 24-APR-2015 18:25, Vent. rate has decreased BY 39 BPM Borderline criteria for Anterolateral infarct are now Present T wave inversion now evident in Inferior leads QT has shortened Confirmed by Michelle Noe MD ([id number]) on 06/22/2022 10:09:31 PM [facility] Michelle Noe MD - 06/22/2022 Sinus bradycardia Inferior infarct , age undetermined Possible Anterolateral infarct , age undetermined Abnormal ECG When compared with ECG of 24-APR-2015 18:25, Vent. rate has decreased BY 39 BPM Borderline criteria for Anterolateral infarct are now Present T wave inversion now evident in Inferior leads QT has shortened Confirmed by Michelle Noe MD ([id number]) on 06/22/2022 10:09:31 PM [facility] [employer] Work Phone: Magnesiumon 06-22-2022 Magnesium [Mass/Vol] 2.0 mg/dL Normal 1.6-2.6 [facility] Comment on above: Performed By: #### C DP, MG, CP #### [facility] [address] [place] [address] Director Food And Bever[employer]: Khadar Tang MD Magnesium [Mass/Vol] 2.0 mg/dL 1.6 - 2.6 mg/dL [facility] [employer] Right90 CT PELVIS WO CONon 2 CT PELVIS [...] PAPPAS Date: 2022-03-14 09:50 Normal [facility] GLYCOHEMOGLOBIN A1Con 2021 ADA RECOMMENDATION ADA THERAPEUTIC TARG ET 6.0 - 7.0 ACTION SUGGESTED > 7.0 Normal [facility] Comment on above: Performed By: #### A 1C #### [facility] [address] [place], [place] [address] Dr. Juan Smith Glucose [Mass/Vol] 180 mg/dL Normal [facility] Comment on above: Performed By: #### A 1C #### [facility] [address], [place] [address] Dr. Juan Smith HbA1c (Bld) [Mass fraction] 7.9 % Critically high <=6.0 [facility] Comment on above: Performed By: #### A 1C #### [facility] [address], [place] [address] Dr. Juan Smith Cult,Aerobe/Anaerobeon 04-15 Neutrophils Specimen Description .TISSUE RIGHT MEDIAL HEEL POST IRRIGATIONSpecial Requests NOT REPORTEDDirect Exam NO NEUTROPHILS SEEN NO BACTERIA SEEN Culture METHICILLIN RESISTANT STAPHYLOCOCCUS AUREUS SCANT GROWTH For susceptibility, refer to previous culture. STREPTOCOCCI, BETA HEMOLYTIC GROUP C SCANT GROWTH DIPHTHEROIDS SCANT GROWTH NO ANAEROBIC ORGANISMS ISOLATED AT 5 DAYS Report Status FINAL 04/15/2017 [facility] Comment on above: Performed By: #### A ANC ####[address] [id number] Neutrophils Specimen Description .TISSUE RIGHT ANKLE PRE IRRIGATIONSpecial Requests NOT REPORTEDDirect Exam NO NEUTROPHILS SEEN RARE GRAM POSITIVE COCCI IN PAIRS Culture METHICILLIN RESISTANT STAPHYLOCOCCUS AUREUS LIGHT GROWTH For susceptibility, refer to previous culture. STREPTOCOCCI, BETA HEMOLYTIC GROUP C SCANT GROWTH NO ANAEROBIC ORGANISMS ISOLATED AT 5 DAYS Report Status FINAL 04/15/2017 [facility] Comment on above: Performed By: #### A ANC ####[address] [id number] Neutrophils Specimen Description .TISSUE RIGHT MEDIAL HEEL PRE IRRIGATIONSpecial Requests NOT REPORTEDDirect Exam NO NEUTROPHILS SEEN NO BACTERIA SEEN Culture STREPTOCOCCI, BETA HEMOLYTIC GROUP C LIGHT GROWTH METHICILLIN RESISTANT STAPHYLOCOCCUS AUREUS SCANT GROWTH For susceptibility, refer to previous culture. DIPHTHEROIDS LIGHT GROWTH NO ANAEROBIC ORGANISMS ISOLATED AT 5 DAYS Report Status FINAL 04/15/2017 [facility] Comment on above: Performed By: #### A ANC ####[address] [id number] Basic Metabolic Profon 04-13 (cont.) Normal [facility] Comment on above: Result Comment: Aver age GFR for 50-59 years old: 93 mL/min/1.73sq mChronic Kidney Disease: <60 mL/min/1.73sq mKidney failure: <15 mL/min/1.73sq meGFR calculated using average adult body mass. Additional eGFR calculator available at:http://www.[email or web address]_[email or web address] Ville [address] [place] [address] Performed By: #### C DP, CMPX, CRP, SED, GLYHGB ####[address] [address] Anion gap 11 mmol/L Normal 9-17 [facility] Comment on above: Performed By: #### C DP, CMPX, CRP, SED, GLYHGB ####[address] [address] Calcium 8.7 mg/dL Normal 8.6-10.4 [facility] Comment on above: Performed By: #### C DP, CMPX, CRP, SED, GLYHGB ####[address] [address] Chloride 106 mmol/L Normal 98-107 [facility] Comment on above: Performed By: #### C DP, CMPX, CRP, SED, GLYHGB ####[address] [address] CO2 22 mmol/L Normal 20-31 [facility] Comment on above: Performed By: #### C DP, CMPX, CRP, SED, GLYHGB ####[address] [address] Creatinine 1.04 mg/dL Normal 0.70-1.20 [facility] Comment on above: Performed By: #### C DP, CMPX, CRP, SED, GLYHGB ####[facility] [address] [place] [address] eGFR (non-black) mL/min/{1.73_m2} Normal >[address] [facility] Comment on above: Performed By: #### C DP, CMPX, CRP, SED, GLYHGB ####[place] [address] [place] [address] Glucose mass conc 174 mg/dL High 70-99 [facility] Comment on above: Performed By: #### C DP, CMPX, CRP, SED, GLYHGB ####[address] [address] [place] [address] Potassium molar conc 4.1 mmol/L Normal 3.7-5.3 [facility] Comment on above: Performed By: #### C DP, CMPX, CRP, SED, GLYHGB ####[address] [address] Sodium 139 mmol/L Normal 135-144 [facility] Comment on above: Performed By: #### C DP, CMPX, CRP, SED, GLYHGB ####[place] [place] [address] Urea nitrogen 16 mg/dL Normal 6-20 [facility] Comment on above: Performed By: #### C DP, CMPX, CRP, SED, GLYHGB ####[place] [address] [place] [address] BUN/CRE Ratio NOT REPORTED Normal 9-20 [facility] Comment on above: Performed By: #### C DP, CMPX, CRP, SED, GLYHGB ####[address] [address] [place] [address] Staging: NOT REPORTED Normal [facility] Comment on above: Performed By: #### C DP, CMPX, CRP, SED, GLYHGB ####[address] [address] CBC with Diffon 04-13-2017 Abs. Basophil <0.03 Normal 0.00-0.20 [facility] Comment on above: Performed By: #### C DP, CMPX, CRP, SED, GLYHGB ####[address] [address] Abs.Neutrophil (Seg) 4.97 k/uL Normal 1.50-8.10 [facility] Comment on above: Performed By: #### C DP, CMPX, CRP, SED, GLYHGB ####[address] [address] Basophils/100 WBC Auto (Bld) 0 % Normal 0-2 [facility] Comment on above: Performed By: #### C DP, CMPX, CRP, SED, GLYHGB ####[address] [address] Eosinophils 0.24 10*3/uL Normal 0.00-0.44 [facility] Comment on above: Performed By: #### C DP, CMPX, CRP, SED, GLYHGB ####[address] [address] Eosinophils/100 leukocytes 3 % Normal 1-4 [facility] Comment on above: Performed By: #### C DP, CMPX, CRP, SED, GLYHGB ####[address] [address] Erythrocyte distribution width Auto Ratio (RBC) 14.8 % High 11.8-14.4 [facility] Comment on above: Performed By: #### C DP, CMPX, CRP, SED, GLYHGB ####[address] [address] Erythrocyte morphology ANISOCYTOSIS PRESENT Normal [facility] Comment on above: Result Comment: [address] [address] Performed By: #### C DP, CMPX, CRP, SED, GLYHGB ####[address] [address] Erythrocytes (RBC) 0.0 per 100 WBC Normal 0.0 [facility] Comment on above: Performed By: #### C DP, CMPX, CRP, SED, GLYHGB ####[address] [address] Erythrocytes (RBC) 3.42 10*6/uL Low 4.21-5.77 [facility] Comment on above: Performed By: #### C DP, CMPX, CRP, SED, GLYHGB ####[address] [address] Granulocytes/100 WBC (Bld) 0.19 k/uL Normal 0.00-0.30 [facility] Comment on above: Performed By: #### C DP, CMPX, CRP, SED, GLYHGB ####[address] [address] Hematocrit (HCT) 29.4 % Low 40.7-50.3 [facility] Comment on above: Performed By: #### C DP, CMPX, CRP, SED, GLYHGB ####[address] [address] Hemoglobin mass conc (Bld) 8.8 g/dL Low 13.0-17.0 [facility] Comment on above: Performed By: #### C DP, CMPX, CRP, SED, GLYHGB ####[address] [address] Immature granulocytes #/vol (Bld) 2 % High 0 [facility] Comment on above: Performed By: #### C DP, CMPX, CRP, SED, GLYHGB ####[address] [place] [address] Lymphocytes 2.00 10*3/uL Normal 1.10-3.70 [facility] Comment on above: Performed By: #### C DP, CMPX, CRP, SED, GLYHGB ####[address] [address] Lymphocytes/100 leukocytes 25 % Normal 24-43 [facility] Comment on above: Performed By: #### C DP, CMPX, CRP, SED, GLYHGB ####[address] [address] MCH 25.7 pg Normal 25.2-33.5 [facility] Comment on above: Performed By: #### C DP, CMPX, CRP, SED, GLYHGB ####[address] [address] MCHC mass conc (RBC) 29.9 g/dL Normal 28.4-34.8 [facility] Comment on above: Performed By: #### C DP, CMPX, CRP, SED, GLYHGB ####[address] [address] MCV 86.0 fL Normal 82.6-102.9 [facility] Comment on above: Performed By: #### C DP, CMPX, CRP, SED, GLYHGB ####[address] [address] Monocytes 0.53 10*3/uL Normal 0.10-1.20 [facility] Comment on above: Performed By: #### C DP, CMPX, CRP, SED, GLYHGB ####[address] [address] Monocytes/100 leukocytes 7 % Normal 3-12 [facility] Comment on above: Performed By: #### C DP, CMPX, CRP, SED, GLYHGB ####[address] [place] [address] Neutrophil (Seg) 63 % Normal 36-65 [facility] Comment on above: Performed By: #### C DP, CMPX, CRP, SED, GLYHGB ####[address] [address] Platelet mean volume (PMV) 9.9 fL Normal 8.1-13.5 [facility] Comment on above: Performed By: #### C DP, CMPX, CRP, SED, GLYHGB ####[address] [address] Platelets 257 10*3/uL Normal 138-453 [facility] Comment on above: Performed By: #### C DP, CMPX, CRP, SED, GLYHGB ####[address] [address] WBC (Leukocytes) 8.0 10*3/uL Normal 3.5-11.3 [facility] Comment on above: Performed By: #### C DP, CMPX, CRP, SED, GLYHGB ####[address] [address] Auto Diff Performed NOT REPORTED Normal [facility] Comment on above: Performed By: #### C DP, CMPX, CRP, SED, GLYHGB ####[address] [address] Platelets NOT REPORTED Normal [facility] Comment on above: Performed By: #### C DP, CMPX, CRP, SED, GLYHGB ####[address] [address] WBC Morphology NOT REPORTED Normal [facility] Comment on above: Performed By: #### C DP, CMPX, CRP, SED, GLYHGB ####[facility] [address] [place] [address] Discharge Summaryon 04-13-19 18 HIM IP Note OR [employer] Inspector Normal [facility] Plan of Careon 04-13-2017 HIM IP Note OR [employer] Inspector Normal [facility] HIM IP Note OR [employer] Inspector Normal [facility] Progress Noteon 04-13-2017 HIM IP Note OR [employer] Inspector Normal [facility] HIM IP Note OR [employer] Inspector Normal [facility] HIM IP Note OR [employer] Inspector Normal [facility] HIM IP Note OR [employer] Inspector Normal [facility] HIM IP Note OR [employer] Inspector Normal [facility] HIM IP Note OR [employer] Inspector Normal [facility] Basic Metabolic Profon 04-12 (cont.) Normal [facility] Comment on above: Result Comment: Aver age GFR for 50-59 years old: 93 mL/min/1.73sq mChronic Kidney Disease: <60 mL/min/1.73sq mKidney failure: <15 mL/min/1.73sq meGFR calculated using average adult body mass. Additional eGFR calculator available at:http://www.[employer]/multiple_crcl_2012.htmSergio Ville [address] [place], [place] 1076508 ([phone] Performed By: #### C DP, CMPX, CRP, SED, GLYHGB ####[facility] [address] [place], [place] [id number] Anion gap 8 mmol/L Low 9-17 [facility] Comment on above: Performed By: #### C DP, CMPX, CRP, SED, GLYHGB ####[facility] [address] [place], [place] [id number] Calcium 8.8 mg/dL Normal 8.6-10.4 [facility] Comment on above: Performed By: #### C DP, CMPX, CRP, SED, GLYHGB ####[address] [place] [address] Chloride 107 mmol/L Normal 98-107 [facility] Comment on above: Performed By: #### C DP, CMPX, CRP, SED, GLYHGB ####[address] [address] CO2 23 mmol/L Normal 20-31 [facility] Comment on above: Performed By: #### C DP, CMPX, CRP, SED, GLYHGB ####[address] [address] Creatinine 1.01 mg/dL Normal 0.70-1.20 [facility] Comment on above: Performed By: #### C DP, CMPX, CRP, SED, GLYHGB ####[address] [address] eGFR (non-black) mL/min/{1.73_m2} Normal >[address] [facility] Comment on above: Performed By: #### C DP, CMPX, CRP, SED, GLYHGB ####[address] [address] Glucose mass conc 172 mg/dL High 70-99 [facility] Comment on above: Performed By: #### C DP, CMPX, CRP, SED, GLYHGB ####[address] [address] Potassium molar conc 3.9 mmol/L Normal 3.7-5.3 [facility] Comment on above: Performed By: #### C DP, CMPX, CRP, SED, GLYHGB ####[address] [address] Sodium 138 mmol/L Normal 135-144 [facility] Comment on above: Performed By: #### C DP, CMPX, CRP, SED, GLYHGB ####[address] [address] Urea nitrogen 15 mg/dL Normal 6-20 [facility] Comment on above: Performed By: #### C DP, CMPX, CRP, SED, GLYHGB ####[address] [address] BUN/CRE Ratio NOT REPORTED Normal 9-20 [facility] Comment on above: Performed By: #### C DP, CMPX, CRP, SED, GLYHGB ####[address] [address] Staging: NOT REPORTED Normal [facility] Comment on above: Performed By: #### C DP, CMPX, CRP, SED, GLYHGB ####[address] [address] CBC with Diffon 04-12-2017 Abs. Basophil <0.03 Normal 0.00-0.20 [facility] Comment on above: Performed By: #### C DP, CMPX, CRP, SED, GLYHGB ####[address] [address] Abs.Neutrophil (Seg) 4.31 k/uL Normal 1.50-8.10 [facility] Comment on above: Performed By: #### C DP, CMPX, CRP, SED, GLYHGB ####[address] [address] Basophils/100 WBC Auto (Bld) 0 % Normal 0-2 [facility] Comment on above: Performed By: #### C DP, CMPX, CRP, SED, GLYHGB ####[address] [address] Eosinophils 0.21 10*3/uL Normal 0.00-0.44 [facility] Comment on above: Performed By: #### C DP, CMPX, CRP, SED, GLYHGB ####[address] [address] Eosinophils/100 leukocytes 3 % Normal 1-4 [facility] Comment on above: Performed By: #### C DP, CMPX, CRP, SED, GLYHGB ####[address] [address] Erythrocyte distribution width Auto Ratio (RBC) 14.7 % High 11.8-14.4 [facility] Comment on above: Performed By: #### C DP, CMPX, CRP, SED, GLYHGB ####[address] [address] Erythrocyte morphology ANISOCYTOSIS PRESENT Normal [facility] Comment on above: Result Comment: [address] [address] Performed By: #### C DP, CMPX, CRP, SED, GLYHGB ####[address] [address] Erythrocytes (RBC) 3.45 10*6/uL Low 4.21-5.77 [facility] Comment on above: Performed By: #### C DP, CMPX, CRP, SED, GLYHGB ####[address] [address] Granulocytes/100 WBC (Bld) 0.22 k/uL Normal 0.00-0.30 [facility] Comment on above: Performed By: #### C DP, CMPX, CRP, SED, GLYHGB ####[address] [address] Hematocrit (HCT) 28.9 % Low 40.7-50.3 [facility] Comment on above: Performed By: #### C DP, CMPX, CRP, SED, GLYHGB ####[address] [address] Hemoglobin mass conc (Bld) 8.9 g/dL Low 13.0-17.0 [facility] Comment on above: Performed By: #### C DP, CMPX, CRP, SED, GLYHGB ####[address] [address] Immature granulocytes #/vol (Bld) 3 % High 0 [facility] Comment on above: Performed By: #### C DP, CMPX, CRP, SED, GLYHGB ####[address] [address] Lymphocytes 1.83 10*3/uL Normal 1.10-3.70 [facility] Comment on above: Performed By: #### C DP, CMPX, CRP, SED, GLYHGB ####[address] [address] Lymphocytes/100 leukocytes 26 % Normal 24-43 [facility] Comment on above: Performed By: #### C DP, CMPX, CRP, SED, GLYHGB ####[address] [address] MCH 25.8 pg Normal 25.2-33.5 [facility] Comment on above: Performed By: #### C DP, CMPX, CRP, SED, GLYHGB ####[address] [address] MCHC mass conc (RBC) 30.8 g/dL Normal 28.4-34.8 [facility] Comment on above: Performed By: #### C DP, CMPX, CRP, SED, GLYHGB ####[address] [address] MCV 83.8 fL Normal 82.6-102.9 [facility] Comment on above: Performed By: #### C DP, CMPX, CRP, SED, GLYHGB ####[address] [place] [address] Monocytes 0.58 10*3/uL Normal 0.10-1.20 [facility] Comment on above: Performed By: #### C DP, CMPX, CRP, SED, GLYHGB ####[address] [address] Monocytes/100 leukocytes 8 % Normal 3-12 [facility] Comment on above: Performed By: #### C DP, CMPX, CRP, SED, GLYHGB ####[address] [address] Neutrophil (Seg) 60 % Normal 36-65 [facility] Comment on above: Performed By: #### C DP, CMPX, CRP, SED, GLYHGB ####[address] [address] Platelet mean volume (PMV) 9.3 fL Normal 8.1-13.5 [facility] Comment on above: Performed By: #### C DP, CMPX, CRP, SED, GLYHGB ####[address] [address] Platelets 231 10*3/uL Normal 138-453 [facility] Comment on above: Performed By: #### C DP, CMPX, CRP, SED, GLYHGB ####[address] [address] WBC (Leukocytes) 7.2 10*3/uL Normal 3.5-11.3 [facility] Comment on above: Performed By: #### C DP, CMPX, CRP, SED, GLYHGB ####[address] [address] Auto Diff Performed NOT REPORTED Normal [facility] Comment on above: Performed By: #### C DP, CMPX, CRP, SED, GLYHGB ####[facility] [address] [place], [place] [id number] Platelets NOT REPORTED Normal [facility] Comment on above: Performed By: #### C DP, CMPX, CRP, SED, GLYHGB ####[facility] [address] [place], [place] [id number] WBC Morphology NOT REPORTED Normal [facility] Comment on above: Performed By: #### C DP, CMPX, CRP, SED, GLYHGB ####[facility] [address] [place] [address] Cult,Aerobe/Anaerobeon 04-12 Neutrophils Specimen Description .TISSUE RIGHT [...] NOT REPORTEDTrimethoprim/Sulfa <=10 SUSCEPTIBLEVancomycin 1 SUSCEPTIBLE Normal [facility] Comment on above: Performed By: #### A ANC ####[facility] [place] [address] Plan of Careon 04-12-2017 HIM IP Note OR Glass Products Inspector Normal [facility] HIM IP Note OR Glass Products Inspector Normal [facility] HIM IP Note OR Glass Products Inspector Normal [facility] HIM IP Note OR Glass Products Inspector Normal [facility] HIM IP Note OR Glass Products Inspector Normal [facility] Progress Noteon 04-12-2017 HIM IP Note OR Glass Products Inspector Normal [facility] HIM IP Note OR Glass Products Inspector Normal [facility] HIM IP Note OR Glass Products Inspector Normal [facility] HIM IP Note OR [employer] Products Inspector Normal [facility] HIM IP Note OR Glass Products Inspector Normal [facility] HIM IP Note OR Glass Products Inspector Normal [facility] Basic Metabolic Profon 04-11 (cont.) Normal [facility] Comment on above: Result Comment: Aver age GFR for 50-59 years old: 93 mL/min/1.73sq mChronic Kidney Disease: <60 mL/min/1.73sq mKidney failure: <15 mL/min/1.73sq meGFR calculated using average adult body mass. Additional eGFR calculator available at:http://www.[employer]/multiple_crcl_2012.htmWest [facility] [address] [place] [address] Performed By: #### C DP, CMPX, CRP, SED, GLYHGB ####[facility] [address] [place] [address] Anion gap 14 mmol/L Normal 9-17 [facility] Comment on above: Performed By: #### C DP, CMPX, CRP, SED, GLYHGB ####[facility] [address] [place] [address] Calcium 8.2 mg/dL Low 8.6-10.4 [facility] Comment on above: Performed By: #### C DP, CMPX, CRP, SED, GLYHGB ####[facility] [address] [place] [address] Chloride 101 mmol/L Normal 98-107 [facility] Comment on above: Performed By: #### C DP, CMPX, CRP, SED, GLYHGB ####[facility] [address] [place] [address] CO2 21 mmol/L Normal 20-31 [facility] Comment on above: Performed By: #### C DP, CMPX, CRP, SED, GLYHGB ####[address] [address] Creatinine 1.16 mg/dL Normal 0.70-1.20 [facility] Comment on above: Performed By: #### C DP, CMPX, CRP, SED, GLYHGB ####[address] [address] eGFR (non-black) mL/min/{1.73_m2} Normal >[address] [facility] Comment on above: Performed By: #### C DP, CMPX, CRP, SED, GLYHGB ####[address] [address] Glucose mass conc 153 mg/dL High 70-99 [facility] Comment on above: Performed By: #### C DP, CMPX, CRP, SED, GLYHGB ####[address] [address] Potassium molar conc 4.0 mmol/L Normal 3.7-5.3 [facility] Comment on above: Performed By: #### C DP, CMPX, CRP, SED, GLYHGB ####[address] [address] Sodium 136 mmol/L Normal 135-144 [facility] Comment on above: Performed By: #### C DP, CMPX, CRP, SED, GLYHGB ####[address] [place] [address] Urea nitrogen 18 mg/dL Normal 6-20 [facility] Comment on above: Performed By: #### C DP, CMPX, CRP, SED, GLYHGB ####[address] [place] [address] BUN/CRE Ratio NOT REPORTED Normal - [facility] Comment on above: Performed By: #### C DP, CMPX, CRP, SED, GLYHGB ####[address] [address] Staging: NOT REPORTED Normal [facility] Comment on above: Performed By: #### C DP, CMPX, CRP, SED, GLYHGB ####[address] [address] C-Reactive Proteinon 018 C reactive protein (CRP) 55.5 mg/L High 0.0-5.0 [facility] Comment on above: Result Comment: [address] [address] Performed By: #### C DP, CMPX, CRP, SED, GLYHGB ####[address] [address] CBC with Diffon 04-11-2017 Abs. Basophil <0.03 Normal 0.00-0.20 [facility] Comment on above: Performed By: #### C DP, CMPX, CRP, SED, GLYHGB ####[address] [address] Abs.Neutrophil (Seg) 5.04 k/uL Normal 1.50-8.10 [facility] Comment on above: Performed By: #### C DP, CMPX, CRP, SED, GLYHGB ####[address] [address] Basophils/100 WBC Auto (Bld) 0 % Normal 0-2 [facility] Comment on above: Performed By: #### C DP, CMPX, CRP, SED, GLYHGB ####[address] [address] Eosinophils 0.24 10*3/uL Normal 0.00-0.44 [facility] Comment on above: Performed By: #### C DP, CMPX, CRP, SED, GLYHGB ####[address] [address] Eosinophils/100 leukocytes 3 % Normal 1-4 [facility] Comment on above: Performed By: #### C DP, CMPX, CRP, SED, GLYHGB ####[address] [address] Erythrocyte distribution width Auto Ratio (RBC) 14.8 % High 11.8-14.4 [facility] Comment on above: Performed By: #### C DP, CMPX, CRP, SED, GLYHGB ####[address] [address] Erythrocyte morphology ANISOCYTOSIS PRESENT Normal [facility] Comment on above: Result Comment: [address] [address] Performed By: #### C DP, CMPX, CRP, SED, GLYHGB ####[address] [address] Erythrocytes (RBC) 3.36 10*6/uL Low 4.21-5.77 [facility] Comment on above: Performed By: #### C DP, CMPX, CRP, SED, GLYHGB ####[address] [address] Granulocytes/100 WBC (Bld) 0.09 k/uL Normal 0.00-0.30 [facility] Comment on above: Performed By: #### C DP, CMPX, CRP, SED, GLYHGB ####[address] [address] Hematocrit (HCT) 28.8 % Low 40.7-50.3 [facility] Comment on above: Performed By: #### C DP, CMPX, CRP, SED, GLYHGB ####[address] [address] Hemoglobin mass conc (Bld) 8.8 g/dL Low 13.0-17.0 [facility] Comment on above: Performed By: #### C DP, CMPX, CRP, SED, GLYHGB ####[address] [address] Immature granulocytes #/vol (Bld) 1 % High 0 [facility] Comment on above: Performed By: #### C DP, CMPX, CRP, SED, GLYHGB ####[address] [address] Lymphocytes 1.73 10*3/uL Normal 1.10-3.70 [facility] Comment on above: Performed By: #### C DP, CMPX, CRP, SED, GLYHGB ####[address] [address] Lymphocytes/100 leukocytes 23 % Low 24-43 [facility] Comment on above: Performed By: #### C DP, CMPX, CRP, SED, GLYHGB ####[address] [address] MCH 26.2 pg Normal 25.2-33.5 [facility] Comment on above: Performed By: #### C DP, CMPX, CRP, SED, GLYHGB ####[address] [address] MCHC mass conc (RBC) 30.6 g/dL Normal 28.4-34.8 [facility] Comment on above: Performed By: #### C DP, CMPX, CRP, SED, GLYHGB ####[address] [address] MCV 85.7 fL Normal 82.6-102.9 [facility] Comment on above: Performed By: #### C DP, CMPX, CRP, SED, GLYHGB ####[address] [address] Monocytes 0.56 10*3/uL Normal 0.10-1.20 [facility] Comment on above: Performed By: #### C DP, CMPX, CRP, SED, GLYHGB ####[address] [address] Monocytes/100 leukocytes 7 % Normal 3-12 [facility] Comment on above: Performed By: #### C DP, CMPX, CRP, SED, GLYHGB ####[address] [address] Neutrophil (Seg) 66 % High 36-65 [facility] Comment on above: Performed By: #### C DP, CMPX, CRP, SED, GLYHGB ####[address] [address] Platelet mean volume (PMV) 9.9 fL Normal 8.1-13.5 [facility] Comment on above: Performed By: #### C DP, CMPX, CRP, SED, GLYHGB ####[address] [address] Platelets 264 10*3/uL Normal 138-453 [facility] Comment on above: Performed By: #### C DP, CMPX, CRP, SED, GLYHGB ####[address] [address] WBC (Leukocytes) 7.7 10*3/uL Normal 3.5-11.3 [facility] Comment on above: Performed By: #### C DP, CMPX, CRP, SED, GLYHGB ####[address] [address] Auto Diff Performed NOT REPORTED Normal [facility] Comment on above: Performed By: #### C DP, CMPX, CRP, SED, GLYHGB ####[facility] [address] [place] [address] Platelets NOT REPORTED Normal [facility] Comment on above: Performed By: #### C DP, CMPX, CRP, SED, GLYHGB ####[facility] [address] [place] [address] WBC Morphology NOT REPORTED Normal [facility] Comment on above: Performed By: #### C DP, CMPX, CRP, SED, GLYHGB ####[facility] [address] [place] [address] Hemoglobin A1Con 04-11-2017 Glucose mass conc 315 mg/dL Normal [facility] Comment on above: Result Comment: The ADA and AACC recommend providing the estimated average glucose result to permit better patient understanding of their HBA1c result.[address] [address] Performed By: #### C DP, CMPX, CRP, SED, GLYHGB ####[facility] [address] [place] [address] Hemoglobin A1c/Hemoglobin.tot al mass fraction (Bld) 12.6 % High 4.0-6.0 [facility] Comment on above: Performed By: #### C DP, CMPX, CRP, SED, GLYHGB ####[facility] [address] [place] [address] Plan of Careon 04-11-2017 HIM IP Note OR Glass Products Inspector Normal [facility] HIM IP Note OR Glass Products Inspector Normal [facility] HIM IP Note OR Glass Products Inspector Normal [facility] HIM IP Note OR Glass Products Inspector Normal [facility] Progress Noteon 04-11-2017 HIM IP Note OR Glass Products Inspector Normal [facility] HIM IP Note OR Glass Products Inspector Normal [facility] HIM IP Note OR Glass Products Inspector Normal [facility] HIM IP Note OR Glass Products Inspector Normal [facility] Consulton 04-10-2017 HIM IP Note OR Glass Products Inspector Normal [facility] Cult,Urine,Cathon 04-10-2017 Cult,Urine,Cath Specimen Description .CATHETERIZED URINE Special Requests NOT REPORTED Culture PRESUMPTIVE ID: LEO ALBICANS >[id number] CFU/ML Report Status FINAL 04/10/2017 Normal [facility] Comment on above: Performed By: #### C DP, CMPX, CRP, SED, GLYHGB ####[address] [place], [place] [id number] Influenza A + B, PCRon 04-10 Influenza A + B, PCR Specimen Description .NASOPHARYNGEAL SWABSpecial Requests NOT REPORTEDDirect Exam NEGATIVE: Influenza A and B RNA not detected by nucleic acid amplification. The results obtained should be interpreted in conjunction with clinical findings and other laboratory markers. The performance characterisitics of this molecular test were validated by the molecular microbiology department of [facility]. Report Status FINAL 04/10/2017 [facility] Comment on above: Performed By: #### C DP, CMPX, CRP, SED, GLYHGB ####[id number] OPERATIVE REPORTon 8 OPERATIVE REPORT [address] [address] OPERATIVE REPORTPATIENT NAME: GANGA STINSON : 1960MED REC NO: [id number] [id number] ADMIT DATE: 04/09/2017PROVIDER: William Foster-JudgeDATE OF PROCEDURE: 04/10/2016SURGEON: William Jimenez, DPMASSISTANT: Benito Chacon DPM, PGY-1PREOPERATIVE DIAGNOSES:1. Deep [...] for recovery. The patient has a primary beveller operator, Dr. 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 The department of Infectious Disease,Internal Medicine, and specialty medicine services will provide care duringthe inpatient admission. [facility] [place].INDICATIONS FOR OPERATION: This is a [...] He would follow up with his usual beveller operator on anoutpatient basis. The departments of Internal Medicine and InfectiousDisease will guide our care in the interim. Cultures should be availablewith sensitivities in approximately 72 hours and consider dischargeplanning then.WILLIAM FOSTER-JUDGED: 04/10/2017 15:31:53 MS/Jerry_SSROR_IJob#: [id number] Doc#: [id number]: Yakov Min [facility] Department of Infectious Disease Internal Medicine Normal [facility] Plan of Careon 04-10-2017 HIM IP Note OR Glass Products Inspector Normal [facility] HIM IP Note OR Glass Products Inspector [facility] Progress Noteon 04-10-2017 HIM IP Note OR Glass Products Inspector [facility] HIM IP Note OR Glass Products Inspector [facility] XR ANKLE RIGHT STANDARDon XR ANKLE RIGHT [...] Bakerigned by:Roberto Carlos Cavazos MD04/09/17inal result Normal [facility] C-Reactive Proteinon 018 C reactive protein (CRP) 114.3 mg/L High 0.0-5.0 [facility] Comment on above: Result Comment: [facility] [employer] [address] [place] [address] Performed By: #### C DP, CMPX, CRP, SED, GLYHGB ####[facility] [address] [place] [address] CBC with Diffon 04-09-2017 Abs. Basophil <0.03 Normal 0.00-0.20 [facility] Comment on above: Performed By: #### C DP, CMPX, CRP, SED, GLYHGB ####[address] [address] Abs.Neutrophil (Seg) 5.95 k/uL Normal 1.50-8.10 [facility] Comment on above: Performed By: #### C DP, CMPX, CRP, SED, GLYHGB ####[facility] [address] [place] [address] Basophils/100 WBC Auto (Bld) 0 % Normal 0-2 [facility] Comment on above: Performed By: #### C DP, CMPX, CRP, SED, GLYHGB ####[facility] [address] [place] [address] Eosinophils 0.11 10*3/uL Normal 0.00-0.44 [facility] Comment on above: Performed By: #### C DP, CMPX, CRP, SED, GLYHGB ####[address] [address] Eosinophils/100 leukocytes 1 % Normal 1-4 [facility] Comment on above: Performed By: #### C DP, CMPX, CRP, SED, GLYHGB ####[address] [address] Erythrocyte distribution width Auto Ratio (RBC) 15.0 % High 11.8-14.4 [facility] Comment on above: Performed By: #### C DP, CMPX, CRP, SED, GLYHGB ####[address] [address] Erythrocyte morphology ANISOCYTOSIS PRESENT Normal [facility] Comment on above: Result Comment: [address] [address] Performed By: #### C DP, CMPX, CRP, SED, GLYHGB ####[address] [address] Erythrocytes (RBC) 3.50 10*6/uL Low 4.21-5.77 [facility] Comment on above: Performed By: #### C DP, CMPX, CRP, SED, GLYHGB ####[address] [address] Granulocytes/100 WBC (Bld) 0.09 k/uL Normal 0.00-0.30 [facility] Comment on above: Performed By: #### C DP, CMPX, CRP, SED, GLYHGB ####[address] [address] Hematocrit (HCT) 29.9 % Low 40.7-50.3 [facility] Comment on above: Performed By: #### C DP, CMPX, CRP, SED, GLYHGB ####[address] [address] Hemoglobin mass conc (Bld) 9.0 g/dL Low 13.0-17.0 [facility] Comment on above: Performed By: #### C DP, CMPX, CRP, SED, GLYHGB ####[address] [address] Immature granulocytes #/vol (Bld) 1 % High 0 [facility] Comment on above: Performed By: #### C DP, CMPX, CRP, SED, GLYHGB ####[address] [address] Lymphocytes 1.60 10*3/uL Normal 1.10-3.70 [facility] Comment on above: Performed By: #### C DP, CMPX, CRP, SED, GLYHGB ####[address] [address] Lymphocytes/100 leukocytes 19 % Low 24-43 [facility] Comment on above: Performed By: #### C DP, CMPX, CRP, SED, GLYHGB ####[address] [address] MCH 25.7 pg Normal 25.2-33.5 [facility] Comment on above: Performed By: #### C DP, CMPX, CRP, SED, GLYHGB ####[address] [address] MCHC mass conc (RBC) 30.1 g/dL Normal 28.4-34.8 [facility] Comment on above: Performed By: #### C DP, CMPX, CRP, SED, GLYHGB ####[address] [address] MCV 85.4 fL Normal 82.6-102.9 [facility] Comment on above: Performed By: #### C DP, CMPX, CRP, SED, GLYHGB ####[address] [address] Monocytes 0.53 10*3/uL Normal 0.10-1.20 [facility] Comment on above: Performed By: #### C DP, CMPX, CRP, SED, GLYHGB ####[address] [address] Monocytes/100 leukocytes 6 % Normal 3-12 [facility] Comment on above: Performed By: #### C DP, CMPX, CRP, SED, GLYHGB ####[address] [address] Neutrophil (Seg) 73 % High 36-65 [facility] Comment on above: Performed By: #### C DP, CMPX, CRP, SED, GLYHGB ####[address] [address] Platelet mean volume (PMV) 9.6 fL Normal 8.1-13.5 [facility] Comment on above: Performed By: #### C DP, CMPX, CRP, SED, GLYHGB ####[address] [address] Platelets 224 10*3/uL Normal 138-453 [facility] Comment on above: Performed By: #### C DP, CMPX, CRP, SED, GLYHGB ####[address] [address] WBC (Leukocytes) 8.3 10*3/uL Normal 3.5-11.3 [facility] Comment on above: Performed By: #### C DP, CMPX, CRP, SED, GLYHGB ####[address] [address] Auto Diff Performed NOT REPORTED Normal [facility] Comment on above: Performed By: #### C DP, CMPX, CRP, SED, GLYHGB ####[facility] [address] [place] [address] Platelets NOT REPORTED Normal [facility] Comment on above: Performed By: #### C DP, CMPX, CRP, SED, GLYHGB ####[facility] [address] [place] [address] WBC Morphology NOT REPORTED Normal [facility] Comment on above: Performed By: #### C DP, CMPX, CRP, SED, GLYHGB ####[address] [address] Comp Metabolic Pr/rfx MGon 0 - (cont.) Normal [facility] Comment on above: Result Comment: Aver age GFR for 50-59 years old: 93 mL/min/1.73sq mChronic Kidney Disease: <60 mL/min/1.73sq mKidney failure: <15 mL/min/1.73sq meGFR calculated using average adult body mass. Additional eGFR calculator available at:http://www.[employer]/multiple_crcl_2012.htmS[address] [place] [address] Performed By: #### C DP, CMPX, CRP, SED, GLYHGB ####[facility] [address] [place] [address] Alanine aminotransferase (ALT) 9 U/L Normal 5-41 [facility] Comment on above: Performed By: #### C DP, CMPX, CRP, SED, GLYHGB ####[facility] [address] [place] [address] Albumin 2.8 g/dL Low 3.5-5.2 [facility] Comment on above: Performed By: #### C DP, CMPX, CRP, SED, GLYHGB ####[address] [place] [address] Albumin/Globulin Ratio 0.7 {ratio} Low 1.0-2.5 [facility] Comment on above: Performed By: #### C DP, CMPX, CRP, SED, GLYHGB ####[address] [address] Alkaline Phos 57 U/L Normal 40-129 [facility] Comment on above: Performed By: #### C DP, CMPX, CRP, SED, GLYHGB ####[address] [address] Anion gap 13 mmol/L Normal 9-17 [facility] Comment on above: Performed By: #### C DP, CMPX, CRP, SED, GLYHGB ####[address] [address] Aspartate aminotransferase (AST) 9 U/L Normal <40 [facility] Comment on above: Performed By: #### C DP, CMPX, CRP, SED, GLYHGB ####[address] [address] Bilirubin Ql (U) 0.26 mg/dL Low 0.3-1.2 [facility] Comment on above: Performed By: #### C DP, CMPX, CRP, SED, GLYHGB ####[address] [place] [address] Calcium 8.4 mg/dL Low 8.6-10.4 [facility] Comment on above: Performed By: #### C DP, CMPX, CRP, SED, GLYHGB ####[address] [address] Chloride 99 mmol/L Normal 98-107 [facility] Comment on above: Performed By: #### C DP, CMPX, CRP, SED, GLYHGB ####[facility] [place] [address] CO2 21 mmol/L Normal 20-31 [facility] Comment on above: Performed By: #### C DP, CMPX, CRP, SED, GLYHGB ####[facility] [place] [address] Creatinine 1.13 mg/dL Normal 0.70-1.20 [facility] Comment on above: Performed By: #### C DP, CMPX, CRP, SED, GLYHGB ####[address] [place] [address] eGFR (non-black) mL/min/{1.73_m2} Normal >60 Me [facility] Comment on above: Performed By: #### C DP, CMPX, CRP, SED, GLYHGB ####[facility] [place] [address] Glucose mass conc 267 mg/dL High 70-99 [facility] Comment on above: Performed By: #### C DP, CMPX, CRP, SED, GLYHGB ####[facility] [place] [address] Potassium molar conc 4.3 mmol/L Normal 3.7-5.3 [facility] Comment on above: Performed By: #### C DP, CMPX, CRP, SED, GLYHGB ####[facility] [address] [place] [address] Protein 7.0 g/dL Normal 6.4-8.3 [facility] Comment on above: Performed By: #### C DP, CMPX, CRP, SED, GLYHGB ####[facility] [address] [place] [address] Sodium 133 mmol/L Low 135-144 [facility] Comment on above: Performed By: #### C DP, CMPX, CRP, SED, GLYHGB ####[facility] [address] [place] [address] Urea nitrogen 22 mg/dL High -20 [facility] Comment on above: Performed By: #### C DP, CMPX, CRP, SED, GLYHGB ####[facility] [address] [place] [address] BUN/CRE Ratio NOT REPORTED Normal -20 [facility] Comment on above: Performed By: #### C DP, CMPX, CRP, SED, GLYHGB ####[address] [address] Staging: NOT REPORTED Normal [facility] Comment on above: Performed By: #### C DP, CMPX, CRP, SED, GLYHGB ####[address] [phone] Consulton 04-09-2017 HIM IP Note OR Glass Products Inspector Normal [facility] HIM IP Note OR Glass Products Inspector Normal [facility] HIM IP Note OR Glass Products Inspector Normal [facility] Flu A/B Ag Detectionon 04-09 Flu A/B Ag Detection Specimen Description .NASOPHARYNGEAL SWABSpecial Requests NOT REPORTEDDirect Exam PRESUMPTIVE NEGATIVE for Influenza A + B antigens. PCR testing to confirm this result is available upon request. Specimen will be saved in the laboratory for 7 days. Please call [phone] if PCR testing is indicated. Report Status FINAL 04/09/2017 Normal [facility] Comment on above: Performed By: #### C DP, CMPX, CRP, SED, GLYHGB ####[address] [place], [place] [phone] History and Physicalon 04-09 HIM IP Note OR Glass Products Inspector Normal [facility] MRI FOOT RIGHT W WO CONTRAST on 04-09-2017 MRI FOOT RIGHT W WO CONTRAST EXAMINATION:MRI OF THE RIGHT FOOT WITHOUT AND WITH CONTRAST, 04/09/2017 7:35 PMTECHNIQUE:Multiplanar multisequence MRI of the right hindfoot was performed without andwith the administration of intravenous contrast.COMPARISON:[facility] January 07, 2017HISTORY:ORDERING SYSTEM PROVIDED HISTORY: OSTEOMYELITIS, [...] suspected despite a lack of definitive precontrast U3mfflglog changes.Large ulcer overlying the lateral malleolus with underlying osteomyelitis.Interpreted by:SAMMI Tellezigned by:Jesusita Mock MD04/09/17inal result Normal [facility] Op Noteon 04-09-2017 HIM IP Note OR Glass Products Inspector Normal [facility] Plan of Careon 04-09-2017 HIM IP Note OR Glass Products Inspector Normal [facility] HIM IP Note OR Glass Products Inspector Normal [facility] Progress Noteon 04-09-2017 HIM IP Note OR Glass Products Inspector Normal [facility] HIM IP Note OR Glass Products Inspector Normal [facility] HIM IP Note OR Glass Products Inspector Normal [facility] RSV Ag Detectionon 8 RSV Ag Detection Specimen Description .NASOPHARYNGEAL SWABSpecial Requests NOT REPORTEDDirect Exam Presumptive negative for the presence of RSV antigen. PCR testing to confirm this result is available upon request. Specimen will be saved in the laboratory for 7 days. Please call [phone] if PCR testing is indicated. Report Status FINAL 04/09/2017 Normal [facility] Comment on above: Performed By: #### C DP, CMPX, CRP, SED, GLYHGB ####[facility] [address] [place] [address] [phone] Sedimentation Rateon 018 Sedimentation Rate 80 mm High 0-10 [facility] Comment on above: Result Comment: [facility] [employer] [address] [place] [address] [phone] ([phone] Performed By: #### C DP, CMPX, CRP, SED, GLYHGB ####[facility] [address] [place] [address] [id number] XR FOOT RIGHT STANDARDon XR FOOT RIGHT [...] by:SAMMI Tellezigned by:Jesusita Mock MD04/09/17inal result Normal [facility] Vital Signs Date Time Vital Sign Value Performing Clinician Facility 06-04-2023 13:27-0500 Diastolic blood pressure 58 mm[Hg] MD Fidel Abbott Work Phone: [facility] 06-04-2023 13:27-0500 Heart rate 60 /min MD Fidel Abbott Work Phone: [facility] 06-04-2023 13:27-0500 Respiratory rate 12 /min MD Fidel Abbott Work Phone: [facility] 06-04-2023 13:27-0500 SaO2% (BldA) [Mass fraction] 98 % MD Fidle Abbott Work Phone: [facility] 06-04-2023 13:27-0500 Systolic blood pressure 135 mm[Hg] MD Fidel Abbott Work Phone: [facility] 06-04-2023 10:49-0500 Body height 180.34 cm MD Fidel Abbott Work Phone: [facility] 06-04-2023 10:49-0500 Body temperature 98 [degF] MD Fidel Abbott Work Phone: [facility] 06-04-2023 10:49-0500 Body weight 114.3 kg MD Fidel Abbott Work Phone: [facility] 05-06-2023 10:40-0500 Body height 177.8 cm Jonathan Moffett DPM Work Phone: [facility] 05-06-2023 10:40-0500 Body mass index (BMI) [Ratio] 35.87 kg/m2 Jonathan Moffett DPM Work Phone: [facility] 05-06-2023 10:40-0500 Body weight 113.4 kg Jonathan Moffett DPM Work Phone: [facility] 05-06-2023 10:40-0500 Diastolic blood pressure 80 mm[Hg] Jonathan Moffett DPM Work Phone: [facility] 05-06-2023 10:40-0500 Heart rate 79 /min Jonathan Moffett DPM Work Phone: [facility] 05-06-2023 10:40-0500 Systolic blood pressure 133 mm[Hg] Jonathan Moffett DPM Work Phone: [facility] 05-04-2023 13:06-0500 Body mass index (BMI) [Ratio] 34.8 kg/m2 MD Fidel Abbott Work Phone: [facility] 05-04-2023 12:48-0500 Body height 180.34 cm MD Fidel Abbott Work Phone: [facility] 05-04-2023 12:48-0500 Body weight 113.39 kg MD Fidel Abbott Work Phone: [facility] 05-04-2023 11:25-0500 Body temperature 97.3 [degF] MD Fidel Abbott Work Phone: [facility] 05-04-2023 11:25-0500 Diastolic blood pressure 78 mm[Hg] MD Fidel Abbott Work Phone: [facility] 05-04-2023 11:25-0500 Heart rate 64 /min MD Fidel Abbott Work Phone: [facility] 05-04-2023 11:25-0500 Respiratory rate 18 /min MD Fidel Abbott Work Phone: [facility] 05-04-2023 11:25-0500 Systolic blood pressure 177 mm[Hg] MD Fidel Abbott Work Phone: [facility] 11-09-2022 13:10-0400 Blood Pressure Location [place]vin V[place] [facility] 11-09-2022 13:10-0400 Diastolic blood pressure 72 mm[Hg] [place] [facility] 11-09-2022 13:10-0400 Heart rate 78 /min Parvin V[place]A [facility] 11-09-2022 13:10-0400 Systolic blood pressure 148 mm[Hg] [place] V[place]A [facility] 06-26-2022 14:00-0400 Body temperature 97.81 [degF] Eli Pimentel MD Work Phone: [facility] [employer] [facility] 06-26-2022 14:00-0400 Diastolic blood pressure 62 mm[Hg] Eli Pimentel MD Work Phone: [facility] [employer] [facility] 06-26-2022 14:00-0400 Heart rate 70 /min Eli Pimentel MD Work Phone: [facility] [employer] [facility] 06-26-2022 14:00-0400 Respiratory rate 18 /min Eli Pimentel MD Work Phone: [facility] [employer] 06-26-2022 14:00-0400 SaO2% (BldA) [Mass fraction] 95 % Eli Pimentel MD Work Phone: [employer] 06-26-2022 14:00-0400 Systolic blood pressure 144 mm[Hg] Eli Pimentel MD Work Phone: [facility] [employer] [facility] 06-26-2022 05:30-0400 Body mass index (BMI) [Ratio] 34.28 kg/m2 Eli Pimentel MD Work Phone: [facility] [employer] [facility] 06-26-2022 05:30-0400 Body weight 111.49 kg Eli Pimentel MD Work Phone: [employer] 06-25-2022 04:54-0400 Body height 180.3 cm Eli Pimentel MD Work Phone: [facility] [employer] 06-02-2022 12:14-0500 Body height 172.72 cm MD Fidel Abbott Work Phone: [facility] 06-02-2022 12:14-0500 Body mass index (BMI) [Ratio] 41 kg/m2 MD Fidel Abbott Work Phone: [facility] 06-02-2022 12:14-0500 Body weight 122.46 kg MD Fidel Abbott Work Phone: [facility] 06-02-2022 09:52-0500 Body temperature 97 [degF] MD Fidel Abbott Work Phone: [facility] 06-02-2022 09:52-0500 Diastolic blood pressure 73 mm[Hg] MD Fidel Abbott Work Phone: [facility] 06-02-2022 09:52-0500 Heart rate 76 /min MD Fidel Abbott Work Phone: [facility] 06-02-2022 09:52-0500 Systolic blood pressure 155 mm[Hg] MD Fidel Abbott Work Phone: [facility] 03-03-2022 12:06-0500 Body height 180.34 cm MD Fidel Abbott Work Phone: [facility] 03-03-2022 12:06-0500 Body mass index (BMI) [Ratio] 34.8 kg/m2 MD Fidel Abbott Work Phone: [facility] 03-03-2022 12:06-0500 Body weight 113.39 kg MD Fidel Abbott Work Phone: [facility] 03-03-2022 11:37-0500 Body temperature 97.7 [degF] MD Fidel Abbott Work Phone: [facility] 03-03-2022 11:37-0500 Diastolic blood pressure 56 mm[Hg] MD Fidel Abbott Work Phone: [facility] 03-03-2022 11:37-0500 Heart rate 68 /min MD Fidel Abbott Work Phone: [facility] 03-03-2022 11:37-0500 Respiratory rate 18 /min MD Fidel Abbott Work Phone: [facility] 03-03-2022 11:37-0500 Systolic blood pressure 122 mm[Hg] MD Fidel Abbott Work Phone: [facility] Encounters Encounter Date Encounter Type Care Provider Facility Start: 10-11-2023 End: 10-11-2023 ambulatory Khadar [facility] Start: 10-04-2023 ambulatory Parvin VILLA Armand ty:[id number] Start: 07-08-2023 End: 07-08-2023 ambulatory Bubba Lee [facility] Facility:[facility] Start: 07-08-2023 End: 07-08-2023 ambulatory MD Fidel Abbott Work Phone: [facility] Work Phone: Start: 07-08-2023 End: 07-08-2023 Departed Referred MD Fidel Abbott Work Phone: [facility] Start: 06-10-2023 End: 06-10-2023 ambulatory JONATHAN MOFFETT Not Available Start: 06-04-2023 End: 06-04-2023 ambulatory Jonathan Moffett Facility:[facility] Start: 06-04-2023 End: 06-04-2023 Admission to same day surgery center MD Fidel Abbott Work Phone: [facility] [place] Start: 06-03-2023 End: 06-03-2023 ambulatory JONATHAN MOFFETT [...] 25 minutes Jonathan Moffett DPM Work Phone: [facility] Comment on above: Cellulitis of left f oot (Primary Dx); Ulcer of left ankle, with necrosis of bone (HCC) (CMS/HCC); Diabetes mellitus due to underlying condition with diabetic polyneuropathy, unspecified whether long-term insulin use (CMS/HCC); Acute complete paraplegia (CMS/HCC); Acute osteomyelitis of left fibula (CMS/HCC); Foot ulcer, right, with fat layer exposed ([facility]/HCC); Venous insufficiency Start: 05-04-2023 End: 05-05-2023 ambulatory [facility] Facility:[facility] Start: 05-04-2023 End: 05-04-2023 ambulatory MD Fidel Abbott Work Phone: [facility] Work Phone: Start: 05-04-2023 End: 05-04-2023 Discharged Recurring MD Fidel Abbott Work Phone: [facility] Work Phone: Start: 04-29-2023 End: 04-29-2023 ambulatory JONATHAN MOFFETT Not Available Start: 04-29-2023 End: 04-29-2023 ambulatory JONATHAN MOFFETT Not Available Start: 04-15-2023 End: 04-15-2023 ambulatory JONATHAN MOFFETT Not Available Start: 04-06-2023 End: 04-06-2023 ambulatory FIDEL ABBOTT Not Available Start: 04-01-2023 End: 04-01-2023 ambulatory JONATHAN MOFFETT Not Available Start: 03-18-2023 End: 03-18-2023 ambulatory JONATHAN MOFFETT Not Available Start: 03-04-2023 End: 03-04-2023 ambulatory JONATHAN MOFFETT Not Available Start: 02-23-2023 End: 02-23-2023 ambulatory JONATHAN MOFFETT Not Available Start: 02-23-2023 End: 02-23-2023 ambulatory Cathy Fregosogas Facility:[facility] Start: 02-06-2023 End: 02-13-2023 Evaluation and management of inpatient Tita Cullen Facility:[facility] Start: 01-19-2023 End: 01-19-2023 ambulatory Parvin VILLA Facility:[facility] Start: 01-11-2023 End: 01-11-2023 ambulatory Parvin VILLA Facility:[id number] Start: 11-09-2022 End: 11-09-2022 ambulatory Parvin VILLA Facility:[facility] Start: 11-09-2022 End: 11-09-2022 Patient encounter procedure Parvin VILLA [facility] Start: 10-09-2022 ambulatory Parvin VILLA Facility :[facility] Start: 10-07-2022 End: 10-08-2022 ambulatory Parvin VILLA Facility:CD:[id number] Start: 09-25-2022 End: 09-26-2022 ambulatory FIDEL ABBOTT [facility] Start: 09-18-2022 End: 09-21-2022 ambulatory ASHLEE ERWIN [facility] Start: 09-18-2022 End: 09-20-2022 Subsequent hospital visit by physician Francisca Ultrasound Room 2 At [facility] Ultrasound Comment on above: Cauda equina syndrom e (HCC); Neurogenic bladder; Urinary retention; Urinary incontinence without sensory awareness Start: 2022 End: 2022 [facility] Start: 07-02-2022 End: 07-03-2022 [facility] Start: 07-02-2022 End: 07-02-2022 Subsequent hospital visit by physician Fidel Abbott MD Work Phone: [facility] Laboratory Comment on above: Acute kidney injury (HCC); Iron deficiency anemia, unspecified iron deficiency anemia type Start: 06-22-2022 End: 06-26-2022 Evaluation and management of inpatient MATIAS DOSS [facility] Start: 06-22-2022 End: 06-26-2022 Evaluation and management of inpatient [facility]imentel [facility] Comment on above: Acute kidney injury (HCC) (Primary Dx); Hyperkalemia; Iron deficiency anemia, unspecified iron deficiency anemia type Start: 06-22-2022 End: 06-22-2022 ambulatory ANGELES Zhu [facility] Start: 06-22-2022 End: 06-22-2022 Subsequent hospital visit by physician Fidel Abbott MD [facility] Comment on above: Neurogenic bladder Start: 06-02-2022 End: 06-02-2022 ambulatory MD Fidel Abbott Work Phone: [facility] Work Phone: Start: 06-02-2022 End: 06-02-2022 Discharged Recurring MD Fidel Abbott Work Phone: [facility] [employer] Work Phone: Start: 03-14-2022 End: 03-15-[address] CATHY BRAR Facility:[facility] Start: 03-03-2022 End: 03-03-2022 ambulatory MD Fidel Abbott Work Phone: [facility] Work Phone: Start: 03-03-2022 End: 03-03-2022 Discharged Recurring MD Fidel Abbott Work Phone: [facility] [employer] Work Phone: Start: 02-26-2022 End: 02-27-[address] CATHY BRAR Facility:[facility] Start: 05-30-2021 End: 05-31-[address] FIDEL ABBOTT Facility:[facility] Start: 04-09-2017 End: 04-13-2017 Evaluation and management of inpatient MICHAELA Zhu [facility] Procedures Date Procedure Procedure Detail Performing Clinician Start: 06-04-2023 Investigation of transfusion reaction MD Fidel Abbott Work Phone: Start: 06-04-2023 [facility] MD Fidel Abbott Work Phone: Start: 02-10-2023 Antibody screen Cathy Brar Comment on above: Order Comment: Transfuse now? Y Number o f units to transfuse now? 1 Result Comment: PERF ORMED BY: [address] [address] [place] [address] PATHOLOGIST EIGHT SECTION BLOWER FARRAH PAUL M.D. Start: 10-08-2022 Cystourethroscopy with dilation of urethral stricture Parvin V[place]A Start: 09-18-2022 Us retroperitoneal real time w/image complete Ashlee Erwin MEDICAL RESEARCHER - MEDICAL CLAIMS REPRESENTATIVE Work Phone: Start: 2022 Optical urethrotomy Parvin VILLA Start: 07-02-2022 Basic metabolic panel calcium total Shelly Mondragon MEDICAL RESEARCHER - MEDICAL CLAIMS REPRESENTATIVE Work Phone: Start: 06-26-2022 End: 06-26-2022 COLONOSCOPY [...] actv qual feces 1 deter Shelly Mondragon MEDICAL RESEARCHER - MEDICAL CLAIMS REPRESENTATIVE Work Phone: Start: 06-25-2022 Cul bact xcpt urine blood/stool aerobic isol Yakov Merritt Mechelle DPM Work Phone: Start: 06-25-2022 Blood count complete auto&auto difrntl wbc Katerina Atkins MD Work Phone: Start: 06-25-2022 End: 06-25-2022 Rhythm ecg 1-3 leads w/interpretation & report Unknown Provider Result Start: 06-25-2022 Antibody screen Eli Pimentel MD Work Phone: Start: 06-24-2022 Assay of troponin quantitative Zoila wright PA-C Work Phone: Start: 06-24-2022 End: 06-24-2022 Transfusion of packed red blood cells Shelly Geoff Mondragon MEDICAL RESEARCHER - MEDICAL CLAIMS REPRESENTATIVE Work Phone: Start: 06-24-2022 Echo tthrc r-t 2d w/wom-mode compl spec&colr d Shellyjose Mondragon MEDICAL RESEARCHER - MEDICAL CLAIMS REPRESENTATIVE Work Phone: Start: 06-24-2022 Blood typing serologic abo Shelly Mondragon MEDICAL RESEARCHER - MEDICAL CLAIMS REPRESENTATIVE Work Phone: Start: 06-24-2022 GLUCOSE, WHOLE BLOOD Matias Doss MD Work Phone: Start: 06-24-2022 End: 06-24-2022 Prothrombin time Shellyjose Mondragon MEDICAL RESEARCHER - MEDICAL CLAIMS REPRESENTATIVE Work Phone: Start: 06-24-2022 VITAMIN B12 & FOLATE Shellyjose Mondragon MEDICAL RESEARCHER - MEDICAL CLAIMS REPRESENTATIVE Work Phone: Start: 06-24-2022 End: 06-25-2022 Rhythm [...] ankle complete minimum 3 views Shelly Mondragon MEDICAL RESEARCHER - MEDICAL CLAIMS REPRESENTATIVE Work Phone: Start: 06-23-2022 Lipid panel Zoila [...] 06-26-2032 Screening for malignant neoplasm of colon [employer] Start: 10-18-2023 End: 10-18-2023 Patient encounter procedure 10/18/2023 10:00 AM EDT Office Visit [facility] [address] [place] [address] Fidel Abbott MD [address] [place] [phone] [facility] Start: 09-19-2023 GFR test (Diabetes, CKD 3-4, OR last GFR 15-59) GFR test (Diabetes, CKD 3-4, OR last GFR 15-59) [employer] Start: 07-08-2023 Hemoglobin A1c measurement A1C test (Diabetic or Prediabetic) [employer] Start: 07-03-2023 GFR test (Diabetes, CKD 3-4, OR last GFR 15-59) GFR test (Diabetes, CKD 3-4, OR last GFR 15-59) [employer] Start: 06-27-2023 Screening for malignant neoplasm of colon [employer] Start: 06-26-2023 GFR test (Diabetes, CKD 3-4, OR last GFR 15-59) GFR test (Diabetes, CKD 3-4, OR last GFR 15-59) [employer] Start: 06-26-2023 Screening for malignant neoplasm of colon [employer] Start: 06-24-2023 Lipid panel Lipids [employer] Start: 06-23-2023 GFR test (Diabetes, CKD 3-4, OR last GFR 15-59) GFR test (Diabetes, CKD 3-4, OR last GFR 15-59) [facility] Start: 06-04-2023 [facility] Start: 05-20-2023 End: 05-20-2023 Patient encounter procedure 05/20/2023 3:10 PM EST Office Visit [facility] [address] [id number] Jonathan Mofeftt, DPM [address] [address] [facility] Start: 05-06-2023 End: 05-06-2023 Patient encounter procedure 05/06/2023 10:20 AM EST Office Visit [facility] [address] [facility] [address] [place] [phone] Jonathan Moffett, DPM [address] [address] [facility] Start: 10-27-2022 Influenza vaccination Flu vaccine (Season Ended) [facility] Start: 10-06-2022 Hemoglobin A1c measurement Diabetes: Hemoglobin A1C [facility] Start: 09-25-2022 End: 09-25-2022 Patient encounter procedure 09/25/2022 Office Visit [facility] Start: 07-08-2022 End: 07-08-2022 Patient encounter procedure 07/08/2022 [facility] Start: [facility]22 End: 2022 Admission to same day surgery center 2022 Surgery IP Unit Angeles Nagy MD [address] [facility], [address] [place] [address] CYSTOSCOPY TRANSURETHROTOMY- DVIU WITH POSS TRANSURETHRAL RESECTION OF BLADDER TUMOR [facility] OR Comment on above: CYSTOSCOPY TRANSURETHROTOMY- DVIU WITH P OSS TRANSURETHRAL RESECTION OF BLADDER TUMOR Start: 2022 End: 2022 Cystourethroscopy w/internal urethrotomy male CYSTOSCOPY TRANSURETHROTOMY Cauda equina syndrome (HCC) 2022 8:30 AM EDT [facility] Start: 2022 Subsequent hospital visit by physician 2022 Hospital Encounter IP Unit Angeles Nagy MD [address] [place] [address], [address] [place] [id number] [facility] [place] Start: 07-01-2022 End: 06-27-2023 Basic metabolic 2000 panel - Serum or Plasma Basic Metabolic Panel Lab Routine Acute kidney injury (HCC) Expected: 07/01/2022, Expires: 06/27/2023 [facility]: Comment on above: Expected: 07/01/2022, Expires: 4 Start: 07-01-2022 End: 06-27-2023 CBC W Auto Differential panel - Blood CBC with Auto Differential Lab Routine Acute kidney injury (HCC) Iron deficiency anemia, unspecified iron deficiency anemia type Expected: 07/01/2022, Expires: 06/27/2023 [facility] Work [facility]: Comment on above: Expected: 07/01/2022, Expires: 4 Start: 06-22-2022 Annual Wellness Visit (AWV) Annual Wellness Visit (AWV) [facility] Start: 10-27-2021 Influenza vaccination Flu vaccine (#1) [facility] [employer] Start: 04-09-2018 Diabetic foot examination Diabetic foot exam [facility] [employer] [facility] [employer] Start: 04-09-2018 Hemoglobin A1c measurement A1C test (Diabetic or Prediabetic) [facility] Start: 04-25-2016 Lipid panel Lipids [facility] [employer] Start: 04-24-2016 Urine screening for protein Diabetic Alb to Cr ratio (uACR) test [facility] [employer] Start: 07-08-2011 Shingles vaccine (1 of 2) Shingles vaccine (1 of 2) [facility] [employer] Start: 2006 Screening for malignant neoplasm of colon [facility] [employer] Start: 1980 DTaP/Tdap/Td vaccine (1 - Tdap) DTaP/Tdap/Td vaccine (1 - Tdap) [facility] [employer] [facility] [employer] Start: 1980 Urine screening for protein Diabetes: Urine Protein Screening [facility] Start: 07-08-1979 Glaucoma screening Diabetic retinal exam [facility] Start: 07-08-1979 Hepatitis C screening Hepatitis C screen [facility] [employer] Start: 1976 HIV screening HIV screen [facility] [employer] Start: 1973 Depression Monitoring Depression Monitoring [facility] [employer] Start: 07-08-1971 Glaucoma screening Diabetes: Retinopathy Screening [facility] Start: 07-08-1967 Pneumococcal 0-64 years Vaccine (1 - PCV) Pneumococcal 0-64 years Vaccine (1 - PCV) [facility] Right90 Start: 01-06-1962 COVID-19 Vaccine (#1) COVID-19 Vaccine (#1) [facility] Right90 Start: 1960 Screening for malignant neoplasm of colon [facility] End: 06-27-2022 CBC W Auto Differential panel - Blood CBC auto differential Lab Routine Daily for 5 Days starting 06/23/2022 until 06/27/2022, 4 completed [employer] Phone: Comment on above: Daily for 5 Days starting 06/23/2022 unt il 06/27/2022, 4 completed Culture, Wound Aerob ic Only Culture, Wound Aerobic Only Microbiology [employer] Label Print 06/25/2022 12:20 PM EDT [facility] [employer] Phone: End: 06-25-2022 Hemoglobin and Hematocrit Hemoglobin and Hematocrit Lab Routine Post Transfusion Post Transfusion Post Transfustion until discontinued starting 06/24/2022, 1 completed [employer] Phone: Comment on above: Post Transfusion Post Transfusion Post T ransfustion until discontinued starting 06/24/2022, 1 completed Oxygen therapy [[facility] Data Set] Initiate Oxygen Therapy Protocol Respiratory Care Routine Daily until discontinued starting 06/22/2022 [employer] Phone: Comment on above: Daily until discontinued starting 2022 End: 06-24-2022 PREPARE RBC (CROSSMATCH), 1 Units PREPARE RBC (CROSSMATCH), 1 Units Blood Bank Routine Once for 1 Occurrences starting 06/24/2022 until 06/24/2022 [employer] Phone: Comment on above: Once for 1 Occurrences starting 06/25/19 until 06/24/2022 End: 06-25-2022 Surgical Pathology Surgical Pathology Lab Routine One Time for 1 Occurrences starting 06/25/2022 until 06/25/2022 [employer] Phone: Comment on above: One Time for 1 Occurrences starting 05/29 until 06/25/2022 Surgical Pathology Surgical Path ology Lab Routine Hyperkalemia Release Upon Ordering for 1 Occurrences starting 06/26/2022 [employer] Phone: Comment on above: Release Upon Ordering for 1 Occurrences starting 06/26/2022 End: 06-25-2022 SURGICAL PATHOLOGY REPORT SURGICAL PATHOLOGY REPORT Lab Routine Once for 1 Occurrences starting 06/25/2022 until 06/25/2022 [employer] Phone: Comment on above: Once for 1 Occurrences starting 06/26/19 until 06/25/2022 End: 06-26-2022 SURGICAL PATHOLOGY REPORT SURGICAL PATHOLOGY REPORT Lab Routine Once for 1 Occurrences starting 06/26/2022 until 06/26/2022 [employer] Phone: Comment on above: Once for 1 Occurrences starting 06/27/19 until 06/26/2022 Immunizations Immunization Date Immunization Notes Care Provider [facility] 02-11-2023 influenza, injectabl e, quadrivalent, preservative free MD Fidel Abbott Work Phone: [facility] 04-10-2017 influenza virus vaccine, unspecified formulation Parvin ALLEN [facility] Comment on above: Result Comment: 2022: VIS DATE: 11/02/2014 04-10-2017 influenza, injectabl e, quadrivalent, preservative free Fidel Abbott MD Work Phone: [facility] 01-28-2016 Influenza Vaccine, unspecified formulation Fidel Abbott MD Work Phone: [facility] 01-01-2015 influenza virus vaccine, unspecified formulation Parvin VILLA [facility] 01-01-2015 influenza, seasonal, injectable MD Fidel Abbott Work Phone: [facility] 01-10-2014 influenza virus vaccine, unspecified formulation Parvin VILLA [facility] Payers Date Payer Category Payer Self-pay [id number] 2021 Unknown BCBS BCBS xxxxxx [id number] 2021-Present [phone] [address] [place] [address] [id number] 2015 Unknown [id number] 2006 Medicare MEDICARE MEDICAR E PART B [id number] 2006-Present [address] [address] [place] [address] Medicare [id number] 1961 Unknown [id number] 2.16.840.1.361617.3.579.2.593 1961 Unknown [id number] 2.16.840.1.561880.3.579.2.593 1961 Unknown [id number] 2.16.840.1.335876.3.579.2.593 1961 Unknown [id number] 2.16.840.1.673393.3.579.2.173 1961 Unknown [id number] 2.16.840.1.115599.3.579.2.173 1961 Unknown [id number] 2.16.840.1.023180.3.579.2.173 1961 Unknown [id number] 2.16.840.1.094610.3.579.2.173 1961 Unknown [id number] 2.16.840.1.774704.3.579.2.173 1961 Unknown [id number] 2.16.840.1.383681.3.579.2.173 1961 Unknown [id number] 2.16.840.1.788600.3.579.2.173 1961 Unknown [id number] 2.16.840.1.759276.3.579.2.173 1961 Unknown [id number] 2.16.840.1.089817.3.579.2.1258 1961 Unknown [id number] 2.16.840.1.548133.3.579.2.1258 1961 Unknown [id number] 2.16.840.1.294046.3.579.2.1258 1961 Unknown [id number] 2.16.840.1.659468.3.579.2.1258 1961 Unknown [id number] 2.16.840.1.720526.3.579.2.1258 1961 Unknown [id number] 2.16.840.1.737614.3.579.2.1258 1961 Unknown [id number] 2.16.840.1.725191.3.579.2.1258 1961 Unknown [id number] 2.16.840.1.126209.3.579.2.1258 1961 Unknown [id number] 2.16.840.1.640971.3.579.2.1258 1961 Unknown [id number] 2.16.840.1.518232.3.579.2.1259 1961 Unknown [id number] 2.16.840.1.954839.3.579.2.1259 1961 Unknown [id number] 2.16.840.1.286732.3.579.2.1259 1961 Unknown [id number] 2.16.840.1.785423.3.579.2.727 1961 Unknown [id number] 2.16.840.1.832262.3.579.2.727 1961 Unknown [id number] 2.16.840.1.798493.3.579.2.727 1961 Unknown [id number] 2.16.840.1.539859.3.579.2.727 1961 Unknown [id number] 2.16.840.1.039040.3.579.2.1286 1961 Unknown [id number] 2.16.840.1.945431.3.579.2.1286 1959 Medicare [id number] 1959 Unknown [id number] 1959 Unknown [id number] Unknown [id number] 2.16840.1.546235.3.579.2.531 Unknown [id number] 2.16840.1.189071.3.579.2.531 Unknown [id number] 2.16.840.1.398836.3.579.2.531 Unknown [id number] 2.16.840.1.148115.3.579.2.531 Unknown [id number] 2.16840.1.890423.3.579.2.531 Social History Date Type Detail Facility Start: 01-27-2022 End: 06-04-2023 Tobacco smoking status NHIS Never smoked tobacco (finding) [facility] Start: 1960 Sex Assigned At Male [facility] Start: 06-22-2022 End: 02-23-2023 Tobacco use and exposure Smokeless tobacco non-user [facility] [employer] Work Phone: Start: 06-22-2022 End: 07-14-2022 Alcohol intake Current non-drinker of alcohol (finding) [facility] Phone: Start: 1960 Sex Assigned At Not on file [facility] Phone: Start: 06-12-2022 End: 06-22-2022 Exposure to SARS-CoV-2 (event) Not sure [facility] Start: 06-23-2022 History SDOH Alcohol Frequency 1 [employer] Phone: Start: 06-23-2022 History SDOH Alcohol Std Drinks 0 [employer] Phone: Tobacco smoking status Never [facility] Start: 04-29-2023 End: 05-06-2023 Sex Assigned At Male [facility] Start: 04-29-2023 End: 05-06-2023 Alcohol intake Lifetime non-drinker (finding) [facility] Start: 04-29-2023 End: 05-06-2023 History of Social function [facility] Healthcare Medical Equipment Procedure Code Equipment Code Equipment Origin al Text Equipment Identifier Dates Wound debridement EPIFIX MESH SH EET 4X4.5CM FDA Start: 06-04-2023 Wound debridement Collagen wound matrix dressing ()[id number] FDA Start: 06-04-2023 Wound debridement Collagen wound matrix dressing ()[id number] FDA Start: 06-04-2023 Wound debridement EPIFIX MESH SH EET 4X4.5CM FDA Start: 06-04-2023 Amputation, toe Collagen wound matrix dressing ()[id number] FDA Start: 02-10-2023 Graft Subst Resorbable Mini [facility] [id number] Start: 12-25-2016 Comment on above: Description: mercedez emerson recostituted with 10ml normal saline ref # [id number] exp 07/27/2018 lot # [id number] Goals Date Patient Goal Desired Activity /State Functional Status Date Assessment Result Facility 11-09-2022 Functional Status N/A [facility] Clinical Notes 07-29-2021 to [...] 05/06 visit. Can you resend? Thank you! [facility] 05-13-2023 Miscellaneous Notes Formattin g of this note might be different from the original. Patient called to inquire about the antibiotic that was supposed to be sent after his 05/06 visit. Can you resend? Thank you! documented in this encounter [facility] 05-06-2023 History of Presen t illness Narrative [...] unable to go to wound care at [facility] Patient also has Integra wound graft [...] currently going at [facility] for decubitus ulcer Patient still awaits MRI approval as had to be resubmitted due to need for new x-ray on previous visit in awaits MRI at [facility] . 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 Ulcer of left ankle, with necrosis of bone (HCC) (CMS/HCC) 2. Diabetes mellitus due to underlying condition with diabetic polyneuropathy, unspecified whether watermelon inspector insulin use (CMS/HCC) 3. Acute complete paraplegia [...] oral antibiotics Patient to follow up with [facility] for decubitus ulcer and instructions given to contact [facility] for follow-up.. Skin flap area of [...] Jonathan Moffett DPM documented in this encounter [facility] 05-04-2023 Progress note Note Date/Time May 04, 2023 12:48pm [facility] [address] [place] [address] Wound Center Provider Note Signed Patient: Ganga Stinson MR#: [id number] : 1960 Acct:[id number] Age/Sex: 62 / M Copies to: MD [...] did wound start?: years Mode of Arrival/ Wire Mesh Knitter: Personal vehicle Assistive Device Used Today: Wheelchair [...] Itching Wound/Ulcer Right Lateral Ankle: Bed Appearance: [place] and Yellow Percent of Wound Bed Granulated/Red: [...] No Odor Right Medial Foot: Bed Appearance: [place] and Yellow Percent of Wound Bed Granulated/Red: 50 Percent of Devitalized: 50 Length (cm): 1.0 Width (cm): 1.0 Depth (cm): 0.3 CM Sq: 1.000 Surrounding Tissue Appearance: Hyperpigmented Surrounding Tissue Temp: Warm Drainage Amount: Moderate Drainage Description: Serosanguineous Drainage Odor: No Odor Sacrum: Bed Appearance: Beefy Red, [place] and Yellow Percent of Wound Bed Granulated/Red: 90 Percent of Devitalized: 10 Length (cm): 2.9 Width (cm): 1.5 Depth (cm): 2.5 CM Sq: 4.350 Undermining Position: 360 deepest at 9:00 Undermining Depth: 4.0 Surrounding Tissue Appearance: Hyperpigmented, Macerated and Callous Surrounding Tissue Temp: Warm Drainage Amount: Large Drainage Description: Serosanguineous Drainage Odor: No Odor Right Ischium: Bed Appearance: Beefy Red, [place] and Yellow Percent of Wound Bed Granulated/Red: 90 Percent of Devitalized: 10 Length (cm): 5.3 Width (cm): 7.5 Depth (cm): 4.0 CM Sq: 39.750 Surrounding Tissue Appearance: [place], Macerated and Callous Surrounding Tissue Temp: Warm Drainage Amount: Large Drainage Description: Serosanguineous Drainage Odor: No Odor Left Ischium: Bed Appearance: Beefy Red and [place] Percent of Wound Bed Granulated/Red: 100 Percent [...] underlying condition with diabetic neuropathy,unspecified; Z79.4 - senior care (current) use of insulin (5) Foot ulcer [...] <Electronically signed by MD Cathy Brar> 05/04/23 1307 [facility] Work Phone: [phone]) 837-270708-14-2023 Hospital Discharge instructions Patient Education 11/09/2022 14:08:53 [...] Follow these instructions at home: Medicines Take [id number] and prescription medicines only as told by [...] provider. Document Revised: 12/04/2020 Document Reviewed: 12/04/2020 Sleep Number Patient Education 2022 [employer]. Follow Up Care 10/13/2022 11:18:02 With:ALLEN NAZARIO, Parvin Christie, URL Address: [facility] [address], [place] [address] [phone] When: Unknown Comments:sched cysto [facility] 03-31-2023 History of Present [...] go. Call light within reach. * Madelin Laddteja, FRAME CHANGER - 06/26/2022 12:01 PM EDT Physical Therapy Facility/Department: [facility] Daily Treatment Note NAME: [...] Minutes 24 Madelin Hopkins PTA * Gabrielle Alessandro - 06/26/2022 12:00 PM EDT Occupational Therapy Facility/Department: [facility] Daily Treatment Note NAME: [...] 1133 Time Out 1158 Minutes 25 Gabrielle ABRAHAM/Cristina 06/26/22 * Dragan Voss RN - 06/26/2022 [...] 06/26/2022 9:35 AM EDT [facility] via cart with RN. [...] Crockett RN - 06/26/2022 3:00 AM EDT Radio Equipment Installer at bedside for wound dressing change- pt incontinent of bowels. See flow sheet for details. * Panchito Crockett RN - 06/26/2022 1:30 AM EDT Pt incontinent of stool. Radio Equipment Installer at bedside for wound change dressing per order- see flow sheet for details. * Panchito Crockett RN - 06/26/2022 12:50 AM EDT Patient at bedside for reassessment and vitals- see flow sheet for details. Pt remains alert and oriented c4-calm and cooperative. GoLYTELY at bedside and commercial lines underwriter encourages patient to consume fluid- pt validates understanding. Patient currently denying pain and discomfort. Denying any additional needs, call light placed within reach, bed in lowest position. Radio Equipment Installer encourages patient to call out for assistance. Will continue to monitor. * Panchito Crockett RN - 06/26/2022 12:45 AM EDT Radio Equipment Installer at bedside- pt incontinent of stool- wound dressing changed per order. See flow sheet. * Panchito Crockett RN - 06/25/2022 10:05 PM EDT Radio Equipment Installer at bedside to for wound dressing change per order. See MAR for details. * Eloise John, FRAME CHANGER - 06/25/2022 3:56 PM EDT Physical Therapy Facility/Department: [facility] Daily Treatment Note NAME: [...] bed. Supine BLE PROM exercises in all ea. Seated EOB AROM in LAQ 2x [...] never been a smoker. He saw a envelope maker at [facility] 2 years ago in 2020. At that [...] himself. He follows with wound clinic at [facility]. Mr. Stinson also denied any current or [...] Paralysis of both lower limbs (HCC) Paraplegia (HCC) Type II or unspecified type diabetes mellitus without mention of complication, not stated as uncontrolled Unspecified sleep apnea CURRENT ALLERGIES: Vancomycin REVIEW OF SYSTEMS: 14 systems were reviewed. Pertinent positives and negatives as above, all else negative. Past Surgical History: Procedure Laterality Date APPENDECTOMY BACK SURGERY X2 OTHER SURGICAL HISTORY Right 04/10/2017 I&D rt foot/leg wounds [place] I&D BELOW FASCIA FOOT 1 BURSAL SPACE Right 12/25/2016 FOOT DEBRIDEMENT INCISION AND DRAINAGE, 5TH DIGIT, PARTIAL AMB. PLACEMENT OF ANTIBOTIC BEADS performed by Gabriel Haile DPM at [facility] OR MN I&D BELOW FASCIA FOOT 1 BURSAL SPACE Right 04/10/2017 RIGHT ANKLE AND RIGHT HEEL DEBRIDEMENT INCISION AND DRAINAGE WITH CULTURES SENT performed by William Jimenez MD at [facility] OR [place] OFFICE/OUTPT VISIT,PROCEDURE ONLY Right 06/14/2017 FOOT DEBRIDEMENT INCISION AND DRAINAGE-ANKLE INCLUDING BONE BIOPSY performed by Ro Husseint [facility] OR TOE AMPUTATION Right 12/25/2016 right fifth toe amputation with I&D, ATB beads per Dr. Haile VENA CAVA FILTER PLACEMENT webster filter Social History: Social History Tobacco Use [...] Pressure injury of right ankle, stage 4 ([facility]) 06/24/2022 Open wound of right ankle 12/30/2016 Mixed hyperlipidemia 04/25/2015 Hyponatremia 04/25/2015 Diabetes mellitus ([facility]) 07/02/2011 Paraplegia ([facility]) 03/12/2011 MSSA (methicillin susceptible Staphylococcus aureus) infection 05/28/2017 Bacterial infection 02/17/2017 Enterococcus faecalis infection 12/28/2016 Skin ulcer of right heel with fat layer exposed ([facility]) 09/02/2016 Skin ulcer of right 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 ([facility]) 04/25/2015 Decubitus ulcer of coccygeal region 07/19/2013 Cauda equina syndrome ([facility]) 12/09/2011 Open wound of knee, leg (except thigh), and ankle, complicated 02/25/2011 Acute kidney injury superimposed on CKD ([facility]) 06/23/2022 Abnormal EKG 06/23/2022 Neurogenic bladder 06/23/2022 Hyperkalemia 06/22/2022 Osteomyelitis of ankle or foot, right, acute ([facility]) Decubitus ulcer of coccygeal region, stage 4 ([facility]) 04/09/2017 Cellulitis 04/08/2017 Morbid obesity due to excess calories ([facility]) 01/01/2017 Acute on chronic renal failure ([facility]) 12/30/2016 Osteomyelitis of right foot ([facility]) Hypertension Depression PLAN: Pre-Op Clearance: Pre-Operative Risk assessment using 2014 ACC/AHA guidelines Emergent procedure No Active Cardiac Condition No (decompensated HF, Arrhythmia, HI <3 weeks, severe valve disease) Risk Level [...] with the plan. Sincerely, Zoila Villafuerte PA-C [facility] Ndt Inspector [address] [place] [address] , I believe that the risk of significant morbidity and mortality related to the patient's current medical conditions are: intermediate-high. June 25, 2022 * Heri Valdez RN - 06/25/2022 12:[address] Mni completed bedside procedure and I sent wound [...] Paralysis of both lower limbs (HCC) Paraplegia ([facility]) Type II or unspecified type diabetes mellitus without mention of complication, not stated as uncontrolled Unspecified sleep apnea Past Surgical History: Procedure Laterality Date APPENDECTOMY BACK SURGERY X2 OTHER SURGICAL HISTORY Right 04/10/2017 I&D rt foot/leg wounds MN I&D BELOW FASCIA FOOT 1 BURSAL SPACE Right 12/25/2016 FOOT DEBRIDEMENT INCISION AND DRAINAGE, 5TH DIGIT, PARTIAL AMB. PLACEMENT OF ANTIBOTIC BEADS performed by Gabriel Haile DPM at [facility] OR MN I&D BELOW FASCIA FOOT 1 BURSAL SPACE Right 04/10/2017 RIGHT ANKLE AND RIGHT HEEL DEBRIDEMENT INCISION AND DRAINAGE WITH CULTURES SENT performed by William Jimenez MD at [facility] OR [place] OFFICE/OUTPT VISIT,PROCEDURE ONLY Right 06/14/2017 FOOT DEBRIDEMENT INCISION AND DRAINAGE-ANKLE INCLUDING BONE BIOPSY performed by Ro Husseint [facility] OR TOE AMPUTATION Right 12/25/2016 right fifth toe amputation with I&D, ATB beads per Dr. Haile VENA CAVA FILTER PLACEMENT webster filter Allergies Allergen Reactions Vancomycin States had kidney issues after taking Current Facility-Administered Medications: gentamicin (GARAMYCIN) 250 mg in sterile water for irrigation 250 mL irrigation, 250 mg, Irrigation, Once, Yakov Min DPM 0.9 % sodium chloride infusion, , IntraVENous, PRN, ESTELLE Katz CNP polyethylene glycol (GoLYTELY) solution 4,000 mL, 4,000 [...] IVPB, 600 mg, IntraVENous, Q8H, Shelly Mondragon, MEDICAL RESEARCHER - MEDICAL CLAIMS REPRESENTATIVE, Stopped at 06/25/22 0922 sodium hypochlorite (DAKINS) 0.125 % external solution, , Irrigation, Daily, Rosie Soni MD, Given at 06/25/22 1127 0.9 % sodium chloride infusion, , IntraVENous, Continuous, Matias Doss MD, Last Rate: 75 mL/hr at06/25/22 0020, [...] Matias Doss MD, 5,000 Units at 06/23/22 2356 PE: VSS, Afebrile, NAD, A&O x 3, Aloof Labs: as above RLE ; lateral ankle ; FT+ ulcerative wound , +PTB IMP: stage 4 ankle decubitus, appaarent bone involvement Stable for minor bedside procedure Tx: see procedure notes P: see orders / AVS Yakov Min DPM 06/25/2022 12:28 PM * LAURENT Gomez - 06/25/2022 11:55 AM EDT Occupational Therapy Facility/Department: [facility] Daily Treatment Note NAME: [...] 0945 139/64 98.2 F (36.8 C) Temporal 20 94 % -- -- Intake/Output Summary [...] Nagy MD 8:05 AM 06/25/2022 * Shelly Mondragon, MEDICAL RESEARCHER - MEDICAL CLAIMS REPRESENTATIVE - 06/25/2022 7:34 AM EDT Images from [...] labs-Hgb 7.6 today Nutrition status: morbid obesity Automobile Carpets Molder consult initiated Hospital Prophylaxis: DVT: Heparin Stress Ulcer: na Disposition: Shared decision making: All test results, treatment options and disposition options were discussed with the patient today Social determinants of health that may impact management: none Code status: Full Code Disposition: Discharge plan is home [facility] Advanced Care Planning documentation: [x] I have [...] the patient's medical record. [DOES NOT SATISFY [facility] PERFORMANCE] Shelly Mondragon APRN - DOLLY , [facility] 06/25/2022, 7:34 AM IVETT Newman Associated attestation - Matias Doss MD - 06/25/2022 7:34 PM EDT Images from the original note were not included. [address], [address] Attestation Patient: Ganga Stinson Date of Admission: 06/22/2022 4:21 PM Hospital Day # 3 Date of Evaluation: 06/25/2022 I personally evaluated and examined the patient [id number] in conjunction with the PA/GRINDER LAP and agree with the management and dispostition of the patient. Please see the PA/GRINDER LAP's note for full details.My kohli findings are: [...] with the plan as outlined in the GRINDER LAP/PA's note Disposition: Discharge plan is pending Please note that this chart was generated using voice recognition [employer] dictation software. Although every effort was made to ensure the accuracy of this automated oracle programmer analyst, some errors in oracle programmer analyst may have occurred. Matias Doss MD 06/25/2022 7:32 PM * Heri Valdez RN - 06/25/2022 6:43 AM EDT Pt vitals and assessment completed, see flowsheet. Pt A&Ox4, breathing normal. Morning hemoglobin is 7.6. Pt denies pain or sob. Pt denies pain or any further needs at this time, call light within reach, will continue to monitor. * Geneva Samayoa RN - 06/25/2022 12:52 AM EDT Radio Equipment Installer at bedside at this time to perform [...] Samayoa RN - 06/24/2022 6:43 PM EDT Radio Equipment Installer at bedside at this time to perform [...] 4:57 PM EDT Physical Therapy Facility/Department: [facility] Daily Treatment Note NAME: [...] Out 1643 Minutes 19 Martita Tam PTA * Heri Valdez RN - 06/24/2022 4:00 [...] never been a smoker. He saw a envelope maker at [facility] 2 years ago in 2020. At that [...] himself. He follows with wound clinic at [facility]. Mr. Stinson also denied any current or [...] Paralysis of both lower limbs (HCC) Paraplegia (HCC) Type II or unspecified type diabetes mellitus without mention of complication, not stated as uncontrolled Unspecified sleep apnea CURRENT ALLERGIES: Vancomycin REVIEW OF SYSTEMS: 14 systems were reviewed. Pertinent positives and negatives as above, all else negative. Past Surgical History: Procedure Laterality Date APPENDECTOMY BACK SURGERY X2 OTHER SURGICAL HISTORY Right 04/10/2017 I&D rt foot/leg wounds MN I&D BELOW FASCIA FOOT 1 BURSAL SPACE Right 12/25/2016 FOOT DEBRIDEMENT INCISION AND DRAINAGE, 5TH DIGIT, PARTIAL AMB. PLACEMENT OF ANTIBOTIC BEADS performed by Gabriel Haile DPM at [facility] OR MN I&D BELOW FASCIA FOOT 1 BURSAL SPACE Right 04/10/2017 RIGHT ANKLE AND RIGHT HEEL DEBRIDEMENT INCISION AND DRAINAGE WITH CULTURES SENT performed by William Jimenez MD at [facility] OR [place] OFFICE/OUTPT VISIT,PROCEDURE ONLY Right 06/14/2017 FOOT DEBRIDEMENT INCISION AND DRAINAGE-ANKLE INCLUDING BONE BIOPSY performed by Ro Husseint [facility] OR TOE AMPUTATION Right 12/25/2016 right fifth toe amputation with I&D, ATB beads per Dr. Haile VENA CAVA FILTER PLACEMENT webster filter Social History: Social History Tobacco Use [...] Mixed hyperlipidemia 04/25/2015 Hyponatremia 04/25/2015 Diabetes mellitus ([facility]) 07/02/2011 Paraplegia ([facility]) 03/12/2011 MSSA (methicillin susceptible Staphylococcus aureus) infection 05/28/2017 Bacterial infection 02/17/2017 Enterococcus faecalis infection 12/28/2016 Skin ulcer of right heel with fat layer exposed ([facility]) 09/02/2016 Skin ulcer of right 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 ([facility]) 04/25/2015 Decubitus ulcer of coccygeal region 07/19/2013 Cauda equina syndrome ([facility]) 12/09/2011 Open wound of knee, leg (except thigh), and ankle, complicated 02/25/2011 Acute kidney injury superimposed on CKD ([facility]) 06/23/2022 Abnormal EKG 06/23/2022 Neurogenic bladder 06/23/2022 Hyperkalemia 06/22/2022 Osteomyelitis of ankle or foot, right, acute ([facility]) Decubitus ulcer of coccygeal region, stage 4 ([facility]) 04/09/2017 Cellulitis 04/08/2017 Morbid obesity due to excess calories ([facility]) 01/01/2017 Acute on chronic renal failure ([facility]) 12/30/2016 Osteomyelitis of right foot ([facility]) Hypertension Depression PLAN: Abnormal EKG Agree with [...] with the plan. Sincerely, Zoila Villafuerte PA-C [facility] Ndt Inspector [address] [place], [place] [id number] , I believe that the risk of [...] reach, will continue to monitor. * Gabrielle Francois - 06/24/2022 10:32 AM EDT Occupational Therapy Facility/Department: [facility] Daily Treatment Note NAME: [...] Bed Mobility Training: (positioned on side for IBUonline to complete ultrasound at end of session) [...] 927 Time Out 0953 Minutes 25 Gabrielle Francois ABRAHAM/L 06/24/22 * Heri Valdez RN - 06/24/2022 [...] 06/25/2022 6pm KATERINA ATKINS MD [facility] Gastroenterology * Shelly Mondragon APRN - MEDICAL CLAIMS REPRESENTATIVE - 06/24/2022 7:34 AM EDT Images from [...] IRon Monitor labs Nutrition status: morbid obesity Automobile Carpets Molder consult initiated Hospital Prophylaxis: DVT: Heparin Stress Ulcer: na Disposition: Shared decision making: All test results, treatment options and disposition options were discussed with the patient today Social determinants of health that may impact management: none Code status: Full Code Disposition: Discharge plan is home [facility] Advanced Care Planning documentation: [x] I have [...] medical record. [DOES NOT SATISFY MIPS PERFORMANCE] ESTELLE Katz CNP , ESTELLE GRINDER LAP-C [facility] 06/24/2022, 7:34 AM Blood Transfusion Consent [...] to proceed with transfusion of blood components. IVETT Newman Associated attestation - Matias Doss MD - 06/24/2022 9:40 PM EDT Images from the original note were not included. [address] , [place], [place], [address] Attestation Patient: Ganga Evans Alloway Date of Admission: 06/22/2022 4:21 PM Hospital Day # 2 Date of Evaluation: 06/24/2022 I personally evaluated and examined the patient [id number] in conjunction with the PA/GRINDER LAP and agree with the management and dispostition of the patient. Please see the PA/GRINDER LAP's note for full details.My kohli findings are: [...] with the plan as outlined in the GRINDER LAP/PA's note Disposition: Discharge plan is pending, GI, Cardiology, Urology consultations, Transfuse if pRBC <7, wound care to the affected area and monitor electrolytes. Please note that this chart was generated using voice recognition Apozy dictation software. Although every effort was made to ensure the accuracy of this automated oracle programmer analyst, some errors in oracle programmer analyst may have occurred. Matias Doss MD 06/24/2022 9:39 PM * Geneva Samayoa RN - 06/24/2022 2:46 AM EDT Spoke with Dr. Doss and informed him of critical lab levels. No new orders. * Geneva Samayoa RN - 06/24/2022 2:15 AM EDT Radio Equipment Installer at bedside at this time to perform [...] this time and patient transferred over to [facility]. * Geneva Samayoa RN - 06/23/2022 9:00 PM EDT Radio Equipment Installer at bedside at this time to perform [...] 4:35 PM EDT Physical Therapy Facility/Department: [facility] Daily Treatment Note NAME: [...] 4:31 PM EDT Occupational Therapy Facility/Department: [facility] Daily Treatment Note NAME: [...] coccyx after having a BM. * Sarah Hare, PT - 06/23/2022 2:08 PM EDT Physical Therapy Facility/Department: [facility] Physical Therapy Initial Assessment [...] Ambulation Assistance: Non-ambulatory Transfer Assistance: Independent Active Banking Paralegal: No Additional Comments: Pt. with hx of [...] 0934 Time Out 0958 Minutes 24 Sarah Hare PT, DPT * Rae Zamudio, OT - 06/23/2022 11:26 AM EDT Occupational Therapy Facility/Department: [facility] Occupational Therapy Initial Assessment [...] Ambulation Assistance: Non-ambulatory Transfer Assistance: Independent Active Banking Paralegal: No Additional Comments: Pt. with hx of [...] to Severe Extremities (+ 2 pitting BLE) Billiard Parlor Manager Strength: Not Performed Nutrition Assessment: Altered nutrition [...] Anthropometric Measures: Height: 5' 11 (180.3 cm) [place] Body Weight (IBW): 172 lbs (78 kg) [...] Used for Energy Requirements: Current Energy (kcal/day): 6134-2076 (20-23/kg) Weight Used for Protein Requirements: [place] Protein (g/day): 109-133g (1.4-1.7g/kg) Method Used for [...] Nutrition Supplement ANYA [address], LD Contact: [phone] * Panchito Crockett RN - 06/23/2022 1:00 AM EDT Radio Equipment Installer at bedside for reassessment-see flow sheet for details. Patient remains alert and oriented x4-calm and cooperative. Patient continues to deny pain and discomfort. Incontinence and stewart care provided. Denying any additional needs, call light placed within reach, bed in lowest position and alarm engaged to promote patient safety. Will continue to monitor. * Panchito Crockett RN - 06/23/2022 12:00 AM EDT Radio Equipment Installer attempted to place rowe catheter at this time- unable to advance 16 FR catheter. Rn Eyeglass Frames Inspector notified and will attempt- will continue to monitor. Patient reports no pain or discomfort. * Panchito Crockett RN - 06/22/2022 11:12 PM EDT Radio Equipment Installer phoned Dr. Doss at this informing physician [...] continue to monitor. documented in this encounterB[facility] [employer] Work Phone: [phone]) 717-619603-31-2023 Hospital Discharge instructions* Discharge Instructions* Fabby Felder [...] the dietitian. Regular documented in this encounterBON [facility] [employer] [facility] [employer] Phone: 1(118) [phone] Progress note Author Cathy Brar [facility] June 02, 2022 12:14pm Note Date/Time June 02, 2022 12:1 4pm [facility] [address] [place] [address] Wound Center Provider Note Signed Patient: Ganga Stinson MR#: [id number] : 1960 Acct:[id number] Age/Sex: 61 / M Copies to: MD Fidel Whitmore MD~ HPI Date of Visit Date of Visit: Date of Service: 06/02/2022 Time of Service: 12:01 Narrative HPI: Patient is being followed for his chronic bilateral ischial, sacral and right foot ulcers. His is doing his dressing changes. Patient has been having some right hip pain and underwent a CT scan in [place] on 03/14/2022. This showed slight deepening of [...] Constitutional: Denies fever(s) Integumentary/Breasts Skin/Breast: Reports wounds [facility] Medical History (Updated 06/02/22 @ 12:13 by [...] Sacrum: Bed Appearance: Beefy Red, Bone Palpable, [place] and Yellow Percent of Wound Bed Granulated/Red: 90 Percent of Devitalized: 10 Length (cm): 3.5 Width (cm): 1.8 Depth (cm): 2 CM Sq: 6.300 Undermining Position: 360 Undermining Depth: 3 Surrounding Tissue Appearance: [place] Surrounding Tissue Temp: Warm Drainage Amount: Large Drainage Description: Serosanguineous Drainage Odor: No Odor Left Ischium: Bed Appearance: Beefy Red, Bone Palpable, [place] and Yellow Percent of Wound Bed Granulated/Red: 90 Percent of Devitalized: 10 Length (cm): 7 Width (cm): 6 Depth (cm): 5.5 CM Sq: 42.000 Surrounding Tissue Appearance: [place] Surrounding Tissue Temp: Warm Drainage Amount: Large Drainage Description: Serosanguineous Drainage Odor: No Odor Right Ischium: Bed Appearance: Beefy Red, Bone Palpable, [place] and Yellow Percent of Wound Bed Granulated/Red: 90 Percent of Devitalized: 10 Length (cm): 0.7 Width (cm): 1 Depth (cm): 4 CM Sq: 0.700 Surrounding Tissue Appearance: [place] Surrounding Tissue Temp: Warm Drainage Amount: Moderate Drainage Description: Serosanguineous Drainage Odor: No Odor Left Ankle: Bed Appearance: Brown, [place] and Yellow Percent of Wound Bed Granulated/Red: 5 Percent of Devitalized: 95 Length (cm): 3.5 Width (cm): 2.5 Depth (cm): 0.1 CM Sq: 8.750 Surrounding Tissue Appearance: [place] Surrounding Tissue Temp: Warm Drainage Amount: Moderate Drainage Description: Serosanguineous Drainage Odor: No Odor Medial Ankle: Bed Appearance: Brown, [place] and Yellow Percent of Wound Bed Granulated/Red: 50 Percent of Devitalized: 50 Length (cm): 3.5 Width (cm): 4 Depth (cm): 0.1 CM Sq: 14.000 Surrounding Tissue Appearance: [place] Surrounding Tissue Temp: Warm Drainage Amount: Moderate Drainage Description: Serosanguineous Drainage Odor: No Odor Medial Foot: Bed Appearance: Black Dry, Brown, [place] and Hardware Percent of Wound Bed Granulated/Red: 5 Percent of Devitalized: 95 Length (cm): 2 Width (cm): 1.2 Depth (cm): 0.1 CM Sq: 2.400 Surrounding Tissue Appearance: [place] Surrounding Tissue Temp: Warm Drainage Amount: Moderate [...] Diabetes mellitus type: type 2 Diabetes mellitus long-term insulin use:with long-term use Diabetes mellitus complication status: with skin complications Diabetes mellitus complication detail: with other skin ulcer Qualified Code(s): E11.622 - Type 2 diabetes mellitus with other skin ulcer; 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 Code(s): E11.9 - [...] signed by MD Cathy Brar> 06/02/22 1214 [facility] Work Phone: 1(487) 845-323712-06-2022 Progress note Author Cathy Brar [facility] March 03, 2022 12:06pm Note Date/Time March 03, 2022 1 2:06pm [facility] [address] [place] [address] Wound Center Provider Note Signed Patient: Ganga Stinson MR#: [id number] : 1960 Acct:[id number] Age/Sex: 61 / M Copies to: MD [...] Ischium: Bed Appearance: Beefy Red, Bone Palpable, [place] and Yellow Percent of Wound Bed Granulated/Red: [...] Bed Appearance: Beefy Red, Bone Palpable, Devitalized, [place], Yellow and Rolled Edges Percent of Wound Bed Granulated/Red: 50 Percent of Devitalized: 50 Length (cm): 0.7 Width (cm): 0.8 Depth (cm): 4.0 CM Sq: 0.560 Undermining Position: 0 Undermining Depth: 0 Surrounding Tissue Appearance: Macerated and [place] Surrounding Tissue Temp: Warm Drainage Amount: Moderate Drainage Description: Serosanguineous Drainage Odor: No Odor Lidocaine Applied Topically: 2% Jelly Right Buttock: Bed Appearance: Devitalized, [place] and Yellow Percent of Wound Bed Granulated/Red: 100 Percent of Devitalized: 0 Length (cm): 0 Width (cm): 0 Depth (cm): 0 CM Sq: 0.000 Surrounding Tissue Appearance: Hyperpigmented Surrounding Tissue Temp: Warm Drainage Amount: None Drainage Description: Serosanguineous Drainage Odor: No Odor Lidocaine Applied Topically: 2% Jelly Right Lower Medial Leg: Bed Appearance: [place] and Yellow Percent of Wound Bed Granulated/Red: [...] Diabetes mellitus type: type 2 Diabetes mellitus long-term insulin use:with long-term use Diabetes mellitus complication status: with skin complications Diabetes mellitus complication detail: with other skin ulcer Qualified Code(s): E11.622 - Type 2 diabetes mellitus with other skin ulcer; 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 Code(s): E11.9 - [...] signed by MD Cathy Brar> 03/03/22 1206 [facility] Work Phone: 1(301) 717-935312-02-2022 NotePROCEDURE: XR HIP RT 2 3V W [...] Electronically authenticated by: KHADAR MEDINA Date: 2022-02-27 07:17[facility]11-01-2022 Progress note Author Cathy Brar [facility] January 27, 2022 12:11pm Note Date/Time January 27, 2022 1 2:11pm [facility] [address] [place] [address] Wound Center Provider Note Signed Patient: Ganga Stinson MR#: [id number] : 1960 Acct:[id number] Age/Sex: 61 / M Copies to: MD [...] 360 Undermining Depth: 3.5 Surrounding Tissue Appearance: [place] and Rolled Edges Surrounding Tissue Temp: Warm Drainage Amount: Large Drainage Description: Serosanguineous Drainage Odor: No Odor Lidocaine Applied Topically: 2% Jelly Right Heel: Bed Appearance: Beefy Red, [place] and Yellow Percent of Wound Bed Granulated/Red: 50 Percent of Devitalized: 50 Length (cm): 1.0 Width (cm): 1.4 Depth (cm): 0.1 CM Sq: 1.400 Surrounding Tissue Appearance: Peeling and Dryness Surrounding Tissue Temp: Warm Drainage Amount: Small Drainage Description: Serosanguineous Drainage Odor: No Odor Lidocaine Applied Topically: 2% Jelly Right Ischium: Bed Appearance: Beefy Red, Bone Palpable, [place] and Yellow Percent of Wound Bed Granulated/Red: [...] Bed Appearance: Beefy Red, Bone Palpable, Devitalized, [place], Yellow and Rolled Edges Percent of Wound Bed Granulated/Red: 50 Percent of Devitalized: 50 Length (cm): 1.5 Width (cm): 1.0 Depth (cm): 4.0 CM Sq: 1.500 Undermining Position: 10-3:00 Undermining Depth: 3.5 Surrounding Tissue Appearance: Macerated and Rolled Edges Surrounding Tissue Temp: Warm Drainage Amount: Moderate Drainage Description: Serosanguineous Drainage Odor: No Odor Lidocaine Applied Topically: 2% Jelly Right Buttock: Bed Appearance: Devitalized, [place] and Yellow Percent of Wound Bed Granulated/Red: 100 Percent of Devitalized: 0 Length (cm): 0 Width (cm): 0 Depth (cm): 0 CM Sq: 0.000 Surrounding Tissue Appearance: [place] Surrounding Tissue Temp: Warm Drainage Amount: None Drainage Description: Serosanguineous Drainage Odor: No Odor Lidocaine Applied Topically: 2% Jelly Right Lower Medial Leg: Bed Appearance: [place] and Yellow Percent of Wound Bed Granulated/Red: [...] Diabetes mellitus type: type 2 Diabetes mellitus long-term insulin use:with long-term use Diabetes mellitus complication status: with skin complications Diabetes mellitus complication detail: with other skin ulcer Qualified Code(s): E11.622 - Type 2 diabetes mellitus with other skin ulcer; Z79.4 - senior care (current) use of insulin Code(s): E11.9 - [...] signed by MD Cathy Brar> 01/27/22 1211 [facility] Work Phone: 1(858) 156-769909-27-2022 Progress note Author Cathy Brar [facility] December 23, 2021 12:32pm Note Date/Time December 23, 2021 12:32pm [facility] [address] [place] [address] Wound Center Provider Note Signed Patient: Ganga Stinson MR#: [id number] : 1960 Acct:[id number] Age/Sex: 61 / M Copies to: MD [...] Bed Appearance: Beefy Red, Bone Palpable, Devitalized, [place] and Yellow Percent of Wound Bed Granulated/Red: 95 Percent of Devitalized: 5 Length (cm): 3.2 Width (cm): 2 Depth (cm): 2.5 CM Sq: 6.400 Undermining Position: 10-4:00 Undermining Depth: 5 Surrounding Tissue Appearance: [place] and Macerated Surrounding Tissue Temp: Warm Drainage Amount: Large Drainage Description: Serosanguineous Drainage Odor: No Odor Lidocaine Applied Topically: 2% Jelly Right Heel: Bed Appearance: Beefy Red, Devitalized, Epithelial Tissue or Bridge, [place] and Yellow Percent of Wound Bed Granulated/Red: 90 Percent of Devitalized: 10 Length (cm): 3 Width (cm): 8 Depth (cm): 0.1 CM Sq: 24.000 Surrounding Tissue Appearance: Peeling and Dryness Surrounding Tissue Temp: Warm Drainage Amount: Large Drainage Description: Serosanguineous Drainage Odor: No Odor Lidocaine Applied Topically: 2% Jelly Right Ischium: Bed Appearance: Beefy Red, Bone Palpable, Devitalized, Epithelial Tissue or Bridge, [place] and Yellow Percent of Wound Bed Granulated/Red: 95 Percent of Devitalized: 5 Length (cm): 5 Width (cm): 5 Depth (cm): 5 CM Sq: 25.000 Undermining Position: 12-6:00 Undermining Depth: 1 Surrounding Tissue Appearance: Macerated Surrounding Tissue Temp: Warm Drainage Amount: Large Drainage Description: Serosanguineous Drainage Odor: No Odor Lidocaine Applied Topically: 2% Jelly Left Ischium: Bed Appearance: Beefy Red, Bone Palpable, Devitalized, [place] and Yellow Percent of Wound Bed Granulated/Red: 95 Percent of Devitalized: 5 Length (cm): 1.6 Width (cm): 1.6 Depth (cm): 3.5 CM Sq: 2.560 Undermining Position: 10-3:00 Undermining Depth: 3.5 Surrounding Tissue Appearance: Macerated Surrounding Tissue Temp: Warm Drainage Amount: Moderate Drainage Description: Serosanguineous Drainage Odor: No Odor Lidocaine Applied Topically: 2% Jelly Right Buttock: Bed Appearance: Devitalized, [place] and Yellow Percent of Wound Bed Granulated/Red: 95 Percent of Devitalized: 5 Length (cm): 1.5 Width (cm): 0.5 Depth (cm): 0.1 CM Sq: 0.750 Surrounding Tissue Appearance: [place] and Callous Surrounding Tissue Temp: Warm Drainage Amount: Small Drainage Description: Serosanguineous Drainage Odor: No Odor Lidocaine Applied Topically: 2% Jelly Right Lower Lateral Leg: Bed Appearance: Beefy Red, Devitalized, [place] and Yellow Percent of Wound Bed Granulated/Red: 10 Percent of Devitalized: 90 Length (cm): 0 Width (cm): 0 Depth (cm): 0 CM Sq: 0.000 Surrounding Tissue Appearance: Hyperpigmented Surrounding Tissue Temp: Warm Drainage Amount: None Drainage Description: Serosanguineous Drainage Odor: No Odor Lidocaine Applied Topically: 2% Jelly Right Lower Medial Leg: Bed Appearance: Devitalized, Epithelial Tissue or Bridge, [place] and Yellow Percent of Wound Bed Granulated/Red: [...] Diabetes mellitus type: type 2 Diabetes mellitus long-term insulin use:with watermelon inspector use Diabetes mellitus complication status: with skin complications Diabetes mellitus complication detail: with other skin ulcer Qualified Code(s): E11.622 - Type 2 diabetes mellitus with other skin ulcer; 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 Code(s): E11.9 - [...] signed by MD Cathy Brar> 12/23/21 1232 [facility] Work Phone: 1(260) 795-632308-23-2022 Progress note Author Cathy Brar [facility] November 18, 2021 11:55am Note Date/Time November 18, 2021 11 :55am [facility] [address] [place] [address] Wound Center Provider Note Signed Patient: Ganga Stinson MR#: [id number] : 1960 Acct:[id number] Age/Sex: 61 / M Copies to: MD [...] Bed Appearance: Beefy Red, Bone Palpable, Devitalized, [place] and Yellow Percent of Wound Bed Granulated/Red: 75 Percent of Devitalized: 25 Length (cm): 3.5 Width (cm): 2.0 Depth (cm): 2.5 CM Sq: 7.000 Undermining Position: 360 (deepest at 3) Undermining Depth: 3.5 Surrounding Tissue Appearance: Hyperpigmented Surrounding Tissue Temp: Warm Drainage Amount: Large Drainage Description: Serosanguineous Drainage Odor: No Odor Lidocaine Applied Topically: 2% Jelly Right Heel: Bed Appearance: Devitalized, [place] and Yellow Percent of Wound Bed Granulated/Red: 1 Percent of Devitalized: 99 Length (cm): 1.6 Width (cm): 2.3 Depth (cm): 0.1 CM Sq: 3.680 Surrounding Tissue Appearance: Hyperpigmented Surrounding Tissue Temp: Warm Drainage Amount: Large Drainage Description: Serosanguineous Drainage Odor: No Odor Lidocaine Applied Topically: 2% Jelly Right Ischium: Bed Appearance: Beefy Red, Bone Palpable, Devitalized, Epithelial Tissue or Bridge, [place] and Yellow Percent of Wound Bed Granulated/Red: [...] Bed Appearance: Beefy Red, Bone Palpable, Devitalized, [place] and Yellow Percent of Wound Bed Granulated/Red: 90 Percent of Devitalized: 10 Length (cm): 2.0 Width (cm): 2.0 Depth (cm): 3.5 CM Sq: 4.000 Undermining Position: 9-11:00 Undermining Depth: 4.0 Surrounding Tissue Appearance: Hyperpigmented Surrounding Tissue Temp: Warm Drainage Amount: Moderate Drainage Description: Serosanguineous Drainage Odor: No Odor Lidocaine Applied Topically: 2% Jelly Right Buttock: Bed Appearance: Beefy Red, Devitalized, [place] and Yellow Percent of Wound Bed Granulated/Red: 95 Percent of Devitalized: 5 Length (cm): 2.4 Width (cm): 1.0 Depth (cm): 0.1 CM Sq: 2.400 Surrounding Tissue Appearance: Hyperpigmented Surrounding Tissue Temp: Warm Drainage Amount: Moderate Drainage Description: Serosanguineous Drainage Odor: No Odor Lidocaine Applied Topically: 2% Jelly Right Lower Lateral Leg: Bed Appearance: Beefy Red, Devitalized, [place] and Yellow Percent of Wound Bed Granulated/Red: 10 Percent of Devitalized: 90 Length (cm): 1.3 Width (cm): 1.4 Depth (cm): 0.1 CM Sq: 1.820 Surrounding Tissue Appearance: Hyperpigmented Surrounding Tissue Temp: Warm Drainage Amount: Moderate Drainage Description: Serosanguineous Drainage Odor: No Odor Lidocaine Applied Topically: 2% Jelly Right Lower Medial Leg: Bed Appearance: Black Dry, Devitalized, Epithelial Tissue or Bridge, [place] and Yellow Percent of Wound Bed Granulated/Red: [...] Diabetes mellitus type: type 2 Diabetes mellitus watermelon inspector insulin use:with watermelon inspector use Diabetes mellitus complication status: with skin complications Diabetes mellitus complication detail: with other skin ulcer Qualified Code(s): E11.622 - Type 2 diabetes mellitus with other skin ulcer; Z79.4 - senior care (current) use of insulin Code(s): E11.9 - [...] signed by MD Cathy Brar> 11/18/21 1155 [facility] Work Phone: 1(211) 829-794107-26-2022 Progress note Author Cathy Brar [facility] October 21, 2021 11:44am Note Date/Time October 21, 2021 11:4 4am [facility] [address] [place] [address] Wound Center Provider Note Signed Patient: Ganga Stinson MR#: [id number] : 1960 Acct:[id number] Age/Sex: 61 / M Copies to: MD [...] Bed Appearance: Beefy Red, Bone Palpable, Devitalized, [place] and Yellow Percent of Wound Bed Granulated/Red: 75 Percent of Devitalized: 25 Length (cm): 4.2 Width (cm): 3.0 Depth (cm): 3.0 CM Sq: 12.600 Undermining Position: 360 (deepest at 3) Undermining Depth: 3.5 Surrounding Tissue Appearance: Hyperpigmented Surrounding Tissue Temp: Warm Drainage Amount: Large Drainage Description: Serosanguineous Drainage Odor: No Odor Lidocaine Applied Topically: 2% Jelly Right Heel: Bed Appearance: Devitalized, [place] and Yellow Percent of Wound Bed Granulated/Red: 50 Percent of Devitalized: 50 Length (cm): 2.3 Width (cm): 3.2 Depth (cm): 0.1 CM Sq: 7.360 Surrounding Tissue Appearance: Hyperpigmented Surrounding Tissue Temp: Warm Drainage Amount: Large Drainage Description: Serosanguineous Drainage Odor: No Odor Lidocaine Applied Topically: 2% Jelly Right Ischium: Bed Appearance: Beefy Red, Bone Palpable, Devitalized, Epithelial Tissue or Bridge, [place] and Yellow Percent of Wound Bed Granulated/Red: [...] Bed Appearance: Beefy Red, Bone Palpable, Devitalized, [place] and Yellow Percent of Wound Bed Granulated/Red: 90 Percent of Devitalized: 10 Length (cm): 3.0 Width (cm): 1.6 Depth (cm): 4.5 CM Sq: 4.800 Undermining Position: 9-11:00 Undermining Depth: 1.0 Surrounding Tissue Appearance: Hyperpigmented Surrounding Tissue Temp: Warm Drainage Amount: Moderate Drainage Description: Serosanguineous Drainage Odor: No Odor Lidocaine Applied Topically: 2% Jelly Right Buttock: Bed Appearance: Beefy Red, Devitalized, [place] and Yellow Percent of Wound Bed Granulated/Red: 80 Percent of Devitalized: 20 Length (cm): 2.2 Width (cm): 1.1 Depth (cm): 0.1 CM Sq: 2.420 Surrounding Tissue Appearance: Hyperpigmented Surrounding Tissue Temp: Warm Drainage Amount: Moderate Drainage Description: Serosanguineous Drainage Odor: No Odor Lidocaine Applied Topically: 2% Jelly Right Lower Lateral Leg: Bed Appearance: Beefy Red, Devitalized, [place] and Yellow Percent of Wound Bed Granulated/Red: 10 Percent of Devitalized: 90 Length (cm): 1.3 Width (cm): 1.4 Depth (cm): 0.1 CM Sq: 1.820 Surrounding Tissue Appearance: Hyperpigmented Surrounding Tissue Temp: Warm Drainage Amount: Moderate Drainage Description: Serosanguineous Drainage Odor: No Odor Lidocaine Applied Topically: 2% Jelly Right Lower Medial Leg: Bed Appearance: Black Dry, Devitalized, [place] and Yellow Percent of Wound Bed Granulated/Red: 80 Percent of Devitalized: 20 Length (cm): 1.6 Width (cm): 2.5 Depth (cm): 0.1 CM Sq: 4.000 Surrounding Tissue Appearance: Hyperpigmented Surrounding Tissue Temp: Warm Drainage Amount: Moderate Drainage Description: Serosanguineous Drainage Odor: No Odor Lidocaine Applied Topically: 2% Jelly Right Foot: Bed Appearance: Beefy Red, Devitalized, Epithelial Tissue or Bridge, [place] and Yellow Percent of Wound Bed Granulated/Red: [...] Diabetes mellitus type: type 2 Diabetes mellitus long-term insulin use:with watermelon inspector use Diabetes mellitus complication status: with skin complications Diabetes mellitus complication detail: with other skin ulcer Qualified Code(s): E11.622 - Type 2 diabetes mellitus with other skin ulcer; Z79.4 - senior care (current) use of insulin Code(s): E11.9 - [...] signed by MD Cathy Brar> 10/21/21 1144 [facility] Work Phone: [phone]) 106-187706-21-2022 Progress note Author Cathy Brar [facility] September 16, 2021 11:55am Note Date/Time September 16, 2021 11:5 1am [facility] EN[facility] [address] [place] [address] Wound Center Provider Note Signed Patient: Ganga Stinson MR#: [id number] : 1960 Acct:[id number] Age/Sex: 61 / M Copies to: MD [...] Wound/Ulcer Sacrum: Bed Appearance: Bone Palpable, Devitalized, [place] and Yellow Percent of Wound Bed Granulated/Red: [...] Heel: Bed Appearance: Black Moist, Brown, Devitalized, [place] and Yellow Percent of Wound Bed Granulated/Red: 95 Percent of Devitalized: 5 Length (cm): 3.4 Width (cm): 5.1 Depth (cm): 0.1 CM Sq: 17.340 Surrounding Tissue Appearance: Hyperpigmented Surrounding Tissue Temp: Warm Drainage Amount: Large Drainage Description: Serosanguineous Drainage Odor: No Odor Lidocaine Applied Topically: 2% Jelly Right Ischium: Bed Appearance: Beefy Red, Devitalized, Epithelial Tissue or Bridge, [place] and Yellow Percent of Wound Bed Granulated/Red: 90 Percent of Devitalized: 10 Length (cm): 5.1 Width (cm): 5.5 Depth (cm): 4 CM Sq: 28.050 Undermining Position: 1-3:00 Undermining Depth: 1.5 Surrounding Tissue Appearance: Hyperpigmented Surrounding Tissue Temp: Warm Drainage Amount: Large Drainage Description: Serosanguineous Drainage Odor: No Odor Lidocaine Applied Topically: 2% Jelly Left Ischium: Bed Appearance: Beefy Red, Bone Palpable, Devitalized, [place] and Yellow Percent of Wound Bed Granulated/Red: 90 Percent of Devitalized: 10 Length (cm): 3.9 Width (cm): 1.8 Depth (cm): 5 CM Sq: 7.020 Undermining Position: 9-11:00 Undermining Depth: 2.2 Surrounding Tissue Appearance: Hyperpigmented Surrounding Tissue Temp: Warm Drainage Amount: Moderate Drainage Description: Serosanguineous Drainage Odor: No Odor Lidocaine Applied Topically: 2% Jelly Right Buttock: Bed Appearance: Beefy Red, Devitalized, [place] and Yellow Percent of Wound Bed Granulated/Red: 99 Percent of Devitalized: 1 Length (cm): 2.3 Width (cm): 0.9 Depth (cm): 0.2 CM Sq: 2.070 Surrounding Tissue Appearance: Hyperpigmented Surrounding Tissue Temp: Warm Drainage Amount: Moderate Drainage Description: Serosanguineous Drainage Odor: No Odor Lidocaine Applied Topically: 2% Jelly Right Lower Lateral Leg: Bed Appearance: Beefy Red, Devitalized, [place] and Yellow Percent of Wound Bed Granulated/Red: 20 Percent of Devitalized: 80 Length (cm): 3.8 Width (cm): 2.3 Depth (cm): 0.1 CM Sq: 8.740 Surrounding Tissue Appearance: Hyperpigmented Surrounding Tissue Temp: Warm Drainage Amount: Moderate Drainage Description: Serosanguineous Drainage Odor: No Odor Lidocaine Applied Topically: 2% Jelly Right Lower Medial Leg: Bed Appearance: Black Dry, Devitalized, [place] and Yellow Percent of Wound Bed Granulated/Red: 75 Percent of Devitalized: 25 Length (cm): 2.5 Width (cm): 2.7 Depth (cm): 0.2 CM Sq: 6.750 Surrounding Tissue Appearance: Hyperpigmented Surrounding Tissue Temp: Warm Drainage Amount: Moderate Drainage Description: Serosanguineous Drainage Odor: No Odor Lidocaine Applied Topically: 2% Jelly Right Foot: Bed Appearance: Beefy Red, Devitalized, Epithelial Tissue or Bridge, [place] and Yellow Percent of Wound Bed Granulated/Red: [...] Diabetes mellitus type: type 2 Diabetes mellitus long-term insulin use:with long-term use Diabetes mellitus complication status: with skin complications Diabetes mellitus complication detail: with other skin ulcer Qualified Code(s): E11.622 - Type 2 diabetes mellitus with other skin ulcer; Z79.4 - senior care (current) use of insulin Code(s): E11.9 - [...] signed by MD Cathy Brar> 09/16/21 1155 [facility] Work Phone: 1(389) 262-862805-03-2022 Progress note Author Cathy Brar [facility] July 29, 2021 12:33pm Note Date/Time July 29, 2021 12:33p [facility] ENTER [address] [place] [address] Wound Center Provider Note Signed Patient: Ganga Stinson MR#: [id number] : 1960 Acct:[id number] Age/Sex: 61 / M Copies to: MD [...] down Wound/Ulcer Sacrum: Bed Appearance: Bone Palpable, [place] and Yellow Percent of Wound Bed Granulated/Red: 50 Percent of Devitalized: 50 Length (cm): 2.6 Width (cm): 2.0 Depth (cm): 3.0 CM Sq: 5.200 Undermining Position: 9-4 (deepest at 4) Undermining Depth: 5.4 Surrounding Tissue Appearance: Hyperpigmented Surrounding Tissue Temp: Warm Drainage Amount: Large Drainage Description: Serosanguineous Drainage Odor: No Odor Lidocaine Applied Topically: 2% Jelly Right Heel: Bed Appearance: Black Moist, Brown, [place] and Yellow Percent of Wound Bed Granulated/Red: 15 Percent of Devitalized: 85 Length (cm): 6.0 Width (cm): 9.0 Depth (cm): 0.5 CM Sq: 54.000 Surrounding Tissue Appearance: Hyperpigmented Surrounding Tissue Temp: Warm Drainage Amount: Large Drainage Description: Serosanguineous Drainage Odor: No Odor Lidocaine Applied Topically: 2% Jelly Right Ischium: Bed Appearance: Beefy Red, Epithelial Tissue or Bridge, [place] and Yellow Percent of Wound Bed Granulated/Red: 50 Percent of Devitalized: 50 Length (cm): 9.3 Width (cm): 7.9 Depth (cm): 5.2 CM Sq: 73.470 Undermining Position: 360 (deepest at 7) Undermining Depth: 2.3 Surrounding Tissue Appearance: Hyperpigmented Surrounding Tissue Temp: Warm Drainage Amount: Large Drainage Description: Serosanguineous Drainage Odor: No Odor Lidocaine Applied Topically: 2% Jelly Left Ischium: Bed Appearance: [place] and Yellow Percent of Wound Bed Granulated/Red: 50 Percent of Devitalized: 50 Length (cm): 1.7 Width (cm): 1.5 Depth (cm): 3.5 CM Sq: 2.550 Undermining Position: 3-8 Undermining Depth: 4.5 Surrounding Tissue Appearance: Hyperpigmented Surrounding Tissue Temp: Warm Drainage Amount: Moderate Drainage Description: Serosanguineous Drainage Odor: No Odor Lidocaine Applied Topically: 2% Jelly Right Buttock: Bed Appearance: Beefy Red, [place] and Yellow Percent of Wound Bed Granulated/Red: 75 Percent of Devitalized: 25 Length (cm): 6.6 Width (cm): 2.0 Depth (cm): 0.1 CM Sq: 13.200 Surrounding Tissue Appearance: Hyperpigmented Surrounding Tissue Temp: Warm Drainage Amount: Moderate Drainage Description: Serosanguineous Drainage Odor: No Odor Lidocaine Applied Topically: 2% Jelly Right Lower Lateral Leg: Bed Appearance: Beefy Red, [place] and Yellow Percent of Wound Bed Granulated/Red: 50 Percent of Devitalized: 50 Length (cm): 1.8 Width (cm): 1.5 Depth (cm): 0.1 CM Sq: 2.700 Surrounding Tissue Appearance: Hyperpigmented Surrounding Tissue Temp: Warm Drainage Amount: Moderate Drainage Description: Serosanguineous Drainage Odor: No Odor Lidocaine Applied Topically: 2% Jelly Right Lower Medial Leg: Bed Appearance: Black Dry, [place] and Yellow Percent of Wound Bed Granulated/Red: [...] Diabetes mellitus type: type 2 Diabetes mellitus long-term insulin use:with long-term use Diabetes mellitus complication status: with skin complications Diabetes mellitus complication detail: with other skin ulcer Qualified Code(s): E11.622 - Type 2 diabetes mellitus with other skin ulcer; Z79.4 - senior care (current) use of insulin Code(s): E11.9 - [...] will attempt to obtain that note from envelope maker in [place]. See Instructions for Orders See Instructions for Orders See Wound Discharge Instructions for Orders: Patient may require serial debridement to remove devitalized tissue and encourage granulation. Dictated By: Cathy Brar MD DD/ 1109 Signed By: <Electronically signed by MD Cathy Brar> 07/29/21 1233 [facility] Work Phone: Evaluation + Plan note No data available for this section [facility] evaluation note* Diagnosis Onset Date Resolution Status Right hip pain acute Stage IV pressure ulcer of sacral region acute Unstageable pressure ulcer of right heel acute Cauda equina spinal cord injury chronic Diabetes chronic Pressure ulcer of left hip, stage 3 resolved Pressure ulcer of right hip, stage 3 resolved [facility] Work Phone: Evaluation note* Diagnosis Neurogenic bladder Neurogenic bladder, NOS [facility] [employer] Work Phone: evaluation note* Diagnosis Neurogenic bladder Neurogenic bladder, NOS documented in this encounter [facility] [employer] Work Phone: evaluation note* Diagnosis Hyperkalemia- Primary Hyperpotassemia Acute kidney [...] of neurogenic bladder [facility] [employer] Work Phone: evalhnyjyb note* Diagnosis Acute kidney injury (HCC) Acute kidney failure, unspecified Iron deficiency anemia, unspecified iron deficiency anemia type documented in this encounter [facility] [employer] Phone: evalkiscby note* Diagnosis Onset Date Resolution Status Pressure injury of left ischium, stage 4 acute Pressure injury of right ischium, stage 4 acute Pressure ulcer of right foot, stage 2 acute Right hip pain acute 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 Diabetes [facility] Work Phone: Evaluation note* Diagnosis Cauda equina syndrome (HCC) Cauda equina syndrome without mention of neurogenic bladder Neurogenic bladder Neurogenic bladder, NOS Urinary retention Retention of urine, unspecified Urinary incontinence without sensory awareness Incontinence without sensory awareness [facility] this [facility] [employer] [facility]* Diagnosis Cellulitis of left foot- Primary Ulcer of left ankle, with necrosis of bone ([facility]) ([facility]) Diabetes mellitus due to underlying condition with diabetic polyneuropathy, unspecified whether long-term insulin use ([facility]) Acute complete paraplegia ([facility]) Acute osteomyelitis of left fibula ([facility]) Foot ulcer, right, with fat layer exposed ([facility]) Venous insufficiency Unspecified venous (peripheral) insufficiency documented in this encounter [facility] HealthcareEvaluation note* Diagnosis Abscess of toe, right- Primary documented in this encounter [facility] Healthcare[facility]* Diagnosis Onset Date Resolution Status [id number] acute Foot ulcer with fat layer exposed acute Stage IV pressure ulcer of right buttock acute 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 buttock, stage 3 chronic [facility] Work Phone: Hospital Discharge instructions Additional Instructions [...] operative site FOLLOW UP Phone numbers: Office [phone] [facility] Work Phone: Progress note No data available for this section [facility] Summary Purpose Family History [...] Fibula Osteomyelitis, Diabetes, Ulcerative Reason for Visit [id number] Foot ulcer with fat layer exposed 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 Cauda equina spinal cord injury Pressure ulcer of left buttock, stage 3 Chief Complaint Open Wound Left Fibula Osteomyelitis, Diabetes, Ulcerative Unknown Reason for Visit [id number] Foot ulcer with fat layer exposed 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 Cauda equina spinal cord injury Pressure ulcer of left buttock, stage 3 Reason for Referral Specialty Diagnoses / Procedures Referred By Farzaneh sy Referred To Contact Cardiology Diagnoses Neurogenic bladder Procedures EKG 12 Lead Angeles Nagy MD [address] [facility], [address] [place] [address] Referral ID Status Reason Start Date Expiration Date V isits Requested Visits Authorized [id number] Pending Review 06/22/2022 06/22/2023 1 1 Specialty Diagnoses / Procedures Referred By Farzaneh sy Referred To Contact Radiology Diagnoses Cauda equina syndrome (HCC) Neurogenic bladder Urinary retention Urinary incontinence without sensory awareness Procedures US RENAL COMPLETE Ashlee Erwin, MEDICAL RESEARCHER - MEDICAL CLAIMS REPRESENTATIVE [address] [place] [address] Referral ID Status Reason Start Date Expiration Date Visits Re quested Visits Authorized [id number] Open 09/18/2022 09/18/2023 1 1 Additional Source Comments (unrecognized sect ion and content) No Status Records FoundNo Status Records FoundNo Status Records FoundNo Status Records FoundNo Status Records FoundNo Status Records FoundNo Status Records Found INFORMATION SOURCE (unrecogn ized section and content) DATE CREATED AUTHOR 09/21/2017 [facility] DATE CREATED AUTHOR AUTHOR'S ORGANIZ ATION 04/08/2022 [facility] DATE CREATED AUTHOR AUTHOR'S ORGANIZ ATION 09/27/2022 [facility] DATE CREATED AUTHOR AUTHOR'S ORGANIZ ATION 06/11/2023 [facility] EPIC DATE CREATED AUTHOR AUTHOR'S ORGANIZ ATION 07/15/2023 [facility] DATE CREATED AUTHOR AUTHOR'S ORGANIZ ATION 09/18/2023 Hayden Gonzalez [facility] DATE CREATED AUTHOR AUTHOR'S ORGANIZ ATION 10/22/2023 [facility] Care Teams (unrecognized sec tion and content) Team Status: Active Member Role Status Dates Fidel Abbott MD Primary Care Provider Active Team Status: Inactive Member Role Status Dates Fidel Abbott MD Primary Care Provider Active Cathy Brar MD Attending Provider Active Biometrics Instructor Relationship Specialty Start Date End Date Fidel Abbott MD PCP - General 07/03/15 Biometrics Instructor Relationship Specialty Start Date End Date Fidel Abbott MD PCP - General 07/03/15 Biometrics Instructor Relationship Specialty Start Date End Date Fidel Abbott MD PCP - General 07/03/15 Biometrics Instructor Relationship Specialty Start Date End Date Fidel Abbott MD PCP - General 07/03/15 Biometrics Instructor Relationship Specialty Start Date End Date Fidel Abbott MD PCP - General 07/03/15 Biometrics Instructor Relationship Specialty Start Date End Date Fidel Abbott MD PCP - General Family Medicine 12/10/22 Fidel Abbott MD [address] [facility] [address] [address] [facility] Biometrics Instructor Relationship Specialty Start Date End Date Fidel Abbott MD PCP - General Family Medicine 12/10/22 Fidel Abbott MD [address] [place] [id number] PCP - [employer] 03/29/23 Biometrics Instructor Relationship Specialty Start Date End Date Fidel Abbott MD [address] [place] [address] PCP - [place] [employer] 03/29/23 Fidel Abbott MD [address] [place] [address] PCP - General Family Medicine 05/12/23 Team [...] kidney injury (HCC) Matias Doss MD [address] [facility] [address] [place] [address] [facility] [address] [place] [address] Referral ID Status Reason Start Date Expiration Date Visits Re quested Visits Authorized [id number] 1 1 Specialty Diagnoses / Procedures Referred By Farzaneh sy Referred To Contact Radiology Diagnoses Cauda equina syndrome (HCC) Neurogenic bladder Urinary retention Urinary incontinence without sensory awareness Procedures US RENAL COMPLETE Ashlee Erwin, MEDICAL RESEARCHER - MEDICAL CLAIMS REPRESENTATIVE [address] [place] [address] Referral ID Status Reason Start Date Expiration Date Visits Re quested Visits Authorized [id number] Open 09/18/2022 09/18/2023 1 1 Reason Comments [...] Orders)0900 (Automatically Held - Provider: Cammy Autohold)0959 ([facility] Unhold - Provider: Dragan Voss RN)1234 (Given - Provider: Linh Rocio) atenolol (TENORMIN) tablet 100 mg 100 mg, Oral, DAILY, First dose on Wed06/23/22 at 0900, Until Discontinued 09 (Given - Provider: Heri Valdez RN) 0723 (Given - Provider: Heri Valdez RN) 0812 (MAY Hold - Provider: Cammy Autohold - Reason: Unreviewed Transfer Orders)0900 (Automatically Held - Provider: Cammy Autohold)0959 ([facility] Unhold - Provider: Dragan Voss RN)1233 (Given - Provider: Linh Chan) citalopram (CELEXA) tablet 40 mg 40 mg, Oral, DAILY, First dose on Wed06/23/22 at 0900, Until Discontinued 09 (Given - Provider: Heri Valdez RN) 0723 (Given - Provider: Heri Valdez RN) 0812 (MAR Hold - Provider: Cammy Autohold - Reason: Unreviewed Transfer Orders)0900 (Automatically Held - Provider: Cammy Autohold)0959 ([facility] Unhold - Provider: Dragan Voss RN)1235 (Given [...] Geneva Samayoa RN)0051 (Stopped - Provider: Geneva Samayoa, RN)0825 (New Bag - Provider: Sylvia Chao)0922 (Stopped - Provider: Heri Valdez RN)1619 (New Bag - Provider: Heri Valdez RN)1715 (Stopped - Provider: Heri Valdez RN) 0101 (New Bag - Provider: Panchito Crockett RN)0131 (Stopped - Provider: Panchito Crockett RN)0812 (MAR Hold - Provider: Cammy Autohold - Reason: Unreviewed Transfer Orders)0830 (Automatically Held - Provider: Cammy Autohold)0959 (MAR Unhold - Provider: Dragan Voss RN)1245 (New Bag - Provider: Linh Rocio)1320 (Stopped - Provider: Linh Rocio)2045 (Due - Provider: Linda Ibrahim [facility]) fenofibrate (TRIGLIDE) tablet 160 mg 160 mg, [...] - Reason: Other)1600 (Automatically Held - Provider: Shelly Mondragon APRN - DOLLY) 0000 (Automatically Held - Provider: ESTELLE Katz CNP)0800 (Automatically Held - Provider: Shelly Mondragon APRN - MEDICAL CLAIMS REPRESENTATIVE)1600 (Automatically Held - Provider: Shelly Mondragon APRN - DOLLY) 0000 (Automatically Held - Provider: Shelly Mondragon APRN - DOLLY)0800 (Automatically Held - Provider: Shelly Mondragon APRN - DOLLY)1600 (Automatically Held - Provider: Shelly Mondragon APRN - DOLLY) multivitamin 1 tablet 1 tablet, Oral, DAILY, First dose on Wed06/25/22 at 0900, Until Discontinued 0724 (Given - Provider: Heri Valdez RN) 0812 (MAR Hold - Provider: Cammy Autohold - Reason: Unreviewed Transfer Orders)0900 (Automatically Held - Provider: Cammy Autohold)0959 ([facility] Unhold - Provider: Dragan Voss RN)1235 (Given [...] Autohold)0959 (MAR Unhold - Provider: Dragan Voss RN)2100 [...] Cammy Autohold - Reason: Unreviewed Transfer Orders)0959 (MAR Unhold - Provider: Dragan Voss RN)1340 (New [...] less into rate field of order. 0812 ([facility] - Pro vider: [facility] Aut[employer] - Reason: Unreviewed Transfer Orders)0959 ([facility] Unhold - Provider: Dragan Voss RN) 0.9 % sodium chloride infusion IntraVENous, at 240 mL/hr, Administer over 10 Minutes, PRN, blood administration, Starting on Wed06/24/22 at 0733, For 1 dose, For use in priming line prior to transfusion (prime via gravity) and flush line post transfusion ONLY. Discontinue once line has been cleared of remaining blood product. 0812 ([facility] - Pro vider: [facility] [employer] - Reason: Unreviewed Transfer Orders)0959 ([facility] Unhold - Provider: Dragan Voss RN) acetaminophen (TYLENOL) suppository 650 mg(Linked Group 1) 650 mg, Rectal, EVERY 6 HOURS PRN, Starting on Wed06/22/22 at 2017, Until Discontinued, Pain Mild (1-3), Fever, For temp greater than 100.4 F (38 C), Administer if oral route cannot be used. 0812 ([facility] - Pro vider: [facility] [employer] - Reason: Unreviewed Transfer Orders)0959 ([facility] Unhold - Provider: Dragan Voss RN) acetaminophen (TYLENOL) tablet 650 mg(Linked Group 1) 650 mg, Oral, EVERY 6 HOURS PRN, Starting on Wed06/22/22 at 2017, Until Discontinued, Pain Mild (1-3), Fever, For temp greater than 100.4 F (38 C), Maximum dose of acetaminophen is 4000 mg from all sources in 24 hours. 0812 ([facility] - Pro vider: [facility] [employer] - Reason: Unreviewed Transfer Orders)0959 ([facility] Unhold - Provider: Dragan Voss RN) ondansetron (ZOFRAN) injection 4 mg(Linked Group 2) 4 mg, IntraVENous, EVERY 6 HOURS PRN, Starting on Wed06/22/22 at 2017, Until Discontinued, Nausea, Vomiting, Administer if oral route cannot be used. 0812 ([facility] Hold - Pro vider: [facility] [employer] - Reason: Unreviewed Transfer Orders)0959 ([facility] Unhold - Provider: Dragan Voss RN) ondansetron (ZOFRAN-ODT) disintegrating tablet 4 mg(Linked Group 2) 4 mg, Oral, EVERY 8 HOURS PRN, Starting on Wed06/22/22 at 2017, Until Discontinued, Nausea, Vomiting 0812 ([facility] Hold - Pro vider: [facility] [employer] - Reason: Unreviewed Transfer Orders)0959 ([facility] Unhold - Provider: Dragan Voss RN) polyethylene glycol (GLYCOLAX) packet 17 g 17 g, Oral, DAILY PRN, Starting on Wed06/22/22 at 2017, Until Discontinued, Constipation, First line therapy for constipation 0812 ([facility] Hold - Pro vider: [facility] [employer] - Reason: Unreviewed Transfer Orders)0959 ([facility] Unhold - Provider: Dragan Voss RN) sodium chloride flush 0.9 % injection 10 mL 10 mL, IntraVENous, PRN, Starting on Wed06/22/22 at 2017, Until Discontinued, Line Care, After every IV line use 0812 ([facility] Hold - Pro vider: [facility] [employer] - Reason: Unreviewed Transfer Orders)0959 ([facility] Unhold - Provider: Dragan Voss RN) Linked [...] 8 HOURS PRN, Starting on Wed06/22/22 at 2018, Until Discontinued, Nausea, Vomiting Or ondansetron (ZOFRAN) injection 4 mgJump to med 4 mg, IntraVENous, EVERY 6 HOURS PRN, Starting on Wed06/22/22 at 2018, Until Discontinued, Nausea, Vomiting
Administer if oral [...] BE BASED ON THE PRIMARY CLINICAL RECORDS. [facility] [employer] [facility]. provides no warranty or guarantee of the accuracy or completeness of information in this document.
[2023-11-08] MEDS: LIDOCAINE 2% JELLY 10 ML UR (08:15)
[2023-11-08 08:19] VITALS: BP 147/69; PULSE 75; O2SAT 99
[2023-11-08 08:22] VITALS: BP 144/62; PULSE 63; O2SAT 99
--- NOTE | 2023-11-08 08:33 | P.URON_ITS ---
Urology Surgery Operative Note Operative Note Procedure Date: 11/08/23 Time Out Performed: yes Pre-op Diagnosis: Recurrent urethral strictures Post-op Diagnosis: same as pre-op Procedures performed: 1. Cystoscopy. 2. Urethral dilation with Duarte sounds to 28 [place] Anesthesia: local Primary Surgeon: Jovanny Hoffman Complications: None Estimated blood loss (mL): 10 Findings: Recurrent but minor penile strictures and recurrent bulbar stricture Specimens: None Drains: 16 [place] Rowe catheter to gravity. Indications for Procedures: This gentleman has recurrent urethral and bulbar strictures. He does intermittent self cath. He now presents for an annual cystoscopy. He has signed an informed consent. Detailed description of Procedure: The patient was kept on the [place] bed and brought into the endoscopy suite. Timeout was done by all parties in the room. We all agreed upon the patient's identification and the planned procedures for this patient. 2% Xylocaine jelly was passed per urethra. I then passed a flexible cystoscope per urethra and into the bladder. The penile strictures were recurrent but not dramatic. The bulb stricture was also recurrent. I was able to get the scope through all the strictures with some negotiation. The prostate showed by lobar obstruction. Panendoscopy in the bladder revealed no evidence of any tumors or stones. There was some bullous edema along the trigone right side greater than left. The scope was then removed. I then used Duarte sounds and dilated him from 20 [place]grin up to 28 Mont[place]grin. The urethra did bleed. I then placed a 16 [place] Rowe catheter into the bladder. Clear urine drained. 10 cc of fluid was placed in the balloon. He was then discharged to home. A prescription for Augmentin 500 mg 3 times daily for 1 week was sent. The catheter will come out at the end of the week.
== END 2023-11-08 09:00 | disposition home or self-care (01) ==
PROVIDERS: PCP Family Medicine; Visit Provider Urology
PROC: (CPT 52281; principal; 2023-11-08 08:00)
DX: N35.919 Unspecified urethral stricture, male, unspecified site (principal); N31.9 Neuromuscular dysfunction of bladder, unspecified; D64.9 Anemia, unspecified; E11.9 Type 2 diabetes mellitus without complications; I10 Essential (primary) hypertension; E78.5 Hyperlipidemia, unspecified; G82.20 Paraplegia, unspecified; G47.30 Sleep apnea, unspecified; Z79.84 Long term (current) use of oral hypoglycemic drugs
CPT/HCPCS: 52281

== ENCOUNTER 2023-11-23 15:08 | Outpatient (OUT) | payer BC, MEDICARE, SELFPAY | END 2023-11-23 15:09 | disposition home or self-care (01) | LOC: WC 15:08 | PROVIDERS: PCP Family Medicine; Visit Provider Physician Assistant | DX: E11.621 Type 2 diabetes mellitus with foot ulcer (principal); 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 with other specified severity; E11.622 Type 2 diabetes mellitus with other skin ulcer; L97.818 Non-pressure chronic ulcer of other part of right lower leg with other specified severity; L97.318 Non-pressure chronic ulcer of right ankle with other specified severity; L97.412 Non-pressure chronic ulcer of right heel and midfoot with fat layer exposed; I87.311 Chronic venous hypertension (idiopathic) with ulcer of right lower extremity; L97.812 Non-pressure chronic ulcer of other part of right lower leg with fat layer exposed | CPT/HCPCS: G0463 ==

== ENCOUNTER 2023-12-02 09:34 | Outpatient (OUT) | payer BC, MEDICARE, SELFPAY ==
[2023-12-02 10:56] LABS: Alanine Aminotransferase 14 U/L (16-63); Albumin Globulin Ratio 0.3; Albumin Level 1.8 g/dL (3.4-5.0); Alkaline Phosphatase 109 U/L (46-116); Aspartate Amino Transferase 15 U/L (15-37); Bilirubin Direct 0.1 mg/dL (0.0-0.2); Bilirubin Total 0.2 mg/dL (0.2-1.0); Chol HDL Ratio 4.2; Cholesterol 151 mg/dL (<=200); Globulin 5.7 g/dL; HDL Cholesterol 36 mg/dL (40-60); Total Protein 7.5 g/dL (6.4-8.2); Triglycerides 68 mg/dL (<=150); VLDL CHOLESTEROL 13.6 mg/dL
[2023-12-02 11:26] LABS: Estimated Average Glucose 134 mg/dL; Glycohemoglobin A1C 6.3 % (4.5-6.2)
== END 2023-12-02 09:35 | disposition home or self-care (01) ==
LOC: LAB 09:36
PROVIDERS: PCP Family Medicine; Visit Provider Family Medicine
DX: E11.65 Type 2 diabetes mellitus with hyperglycemia (principal); Z79.899 Other long term (current) drug therapy
CPT/HCPCS: 36415; 80048; 80061; 80076; 82043; 83036

== ENCOUNTER 2023-12-02 09:39 | Outpatient (OUT) | payer BC, MEDICARE, SELFPAY ==
[2023-12-02 10:34] LABS: Basophils Percent Auto 0.3 % (0.2-2.0); Eosinophils Absolute Auto 0.7 10^3/uL (0.0-0.7); Eosinophils Percent Auto 6.4 % (0.9-7.0); Hematocrit 29.4 % (42.0-54.0); Immature Granulocytes Abs Auto 0.04 10^3/uL (0.00-0.03); Immature Granulocytes Pct Auto 0.4 % (0.0-0.5); Lymphocytes Absolute Auto 1.8 10^3/uL (1.2-3.8); Lymphocytes Percent Auto 17.7 % (20.5-60.0); Mean Corpuscular HGB Conc 30.6 g/dL (29.9-35.2); Mean Corpuscular Hemoglobin 25.3 pg (25.9-34.0); Mean Corpuscular Volume 82.6 fL (80.0-94.0); Mean Platelet Volume 8.8 fL (9.5-13.5); Monocytes Absolute Auto 0.7 10^3/uL (0.3-0.8); Monocytes Percent Auto 6.7 % (1.7-12.0); Neutrophils Absolute Auto 7.1 10^3/uL (1.4-6.5); Neutrophils Percent Auto 68.5 % (43.0-75.0); Platelet Count 280 10^3/uL (150-450); Red Blood Count 3.56 10^6/uL (4.70-6.10); Red Cell Distribution Width 16.8 % (11.0-15.0); White Blood Count 10.3 10^3/uL (4.0-11.0)
[2023-12-02 10:47] LABS: Anion Gap 7.5; BUN Creatinine Ratio 25.6; C Reactive Protein 6.23 mg/dL (<=0.50); Calcium 8.6 mg/dL (8.5-10.1); Carbon Dioxide 30.3 mmol/L (21.0-32.0); Chloride 104 mmol/L (98-107); Estimated GFR (African America >60 (>=60); Estimated GFR (Non-African Ame 54 (>=60); Glucose 193 mg/dL (74-106); Potassium 3.8 mmol/L (3.5-5.1); Sodium 138 mmol/L (136-145)
[2023-12-02 10:51] LABS: Percent Iron Saturation 15.7 %
[2023-12-02 11:13] LABS: Erythrocyte Sedimentation Rate >130 mm/hr (<=20)
== END 2023-12-02 09:40 | disposition home or self-care (01) ==
LOC: LAB 09:40
PROVIDERS: PCP Family Medicine; Visit Provider Internal Medicine Hematology & Oncology
DX: E11.65 Type 2 diabetes mellitus with hyperglycemia (principal); Z79.899 Other long term (current) drug therapy; D72.829 Elevated white blood cell count, unspecified; D64.9 Anemia, unspecified; D50.9 Iron deficiency anemia, unspecified
CPT/HCPCS: 36415; 80048; 80061; 80076; 82728; 83036; 83540; 83550; 85025; 85652; 86140

== ENCOUNTER 2023-12-07 07:14 | Outpatient (RCR) | payer BC, MEDICARE, SELFPAY | END 2023-12-27 23:59 | disposition home or self-care (01) | LOC: HEMC 07:14 | PROVIDERS: PCP Family Medicine; Visit Provider Internal Medicine Hematology & Oncology | DX: D72.829 Elevated white blood cell count, unspecified (principal); D64.9 Anemia, unspecified; D50.9 Iron deficiency anemia, unspecified | CPT/HCPCS: G0463 ==

== ENCOUNTER 2023-12-14 10:18 | Outpatient (OUT) | payer BC, MEDICARE, SELFPAY | END 2023-12-14 10:19 | disposition home or self-care (01) | LOC: WC 10:19 | PROVIDERS: PCP Family Medicine; Visit Provider Physician Assistant | DX: E11.621 Type 2 diabetes mellitus with foot ulcer (principal); 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 with other specified severity; E11.622 Type 2 diabetes mellitus with other skin ulcer; L97.818 Non-pressure chronic ulcer of other part of right lower leg with other specified severity; L97.412 Non-pressure chronic ulcer of right heel and midfoot with fat layer exposed; I87.313 Chronic venous hypertension (idiopathic) with ulcer of bilateral lower extremity; L97.812 Non-pressure chronic ulcer of other part of right lower leg with fat layer exposed; L97.828 Non-pressure chronic ulcer of other part of left lower leg with other specified severity | CPT/HCPCS: G0463 ==

== ENCOUNTER 2024-01-03 16:12 | Outpatient (OUT) | payer BC, MEDICARE, SELFPAY | END 2024-01-03 16:13 | disposition home or self-care (01) | LOC: WC 16:12 | PROVIDERS: PCP Family Medicine; Visit Provider Physician Assistant | DX: E11.621 Type 2 diabetes mellitus with foot ulcer (principal); 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 with other specified severity; E11.622 Type 2 diabetes mellitus with other skin ulcer; L97.818 Non-pressure chronic ulcer of other part of right lower leg with other specified severity; L97.412 Non-pressure chronic ulcer of right heel and midfoot with fat layer exposed; I87.311 Chronic venous hypertension (idiopathic) with ulcer of right lower extremity; L89.611 Pressure ulcer of right heel, stage 1 | CPT/HCPCS: 11043; 11046 ==

== ENCOUNTER 2024-01-25 15:39 | Outpatient (OUT) | payer BC, MEDICARE, SELFPAY | END 2024-01-25 15:40 | disposition home or self-care (01) | LOC: WC 15:39 | PROVIDERS: PCP Family Medicine; Visit Provider Physician Assistant | DX: E11.621 Type 2 diabetes mellitus with foot ulcer (principal); 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 with other specified severity; L97.412 Non-pressure chronic ulcer of right heel and midfoot with fat layer exposed; I87.311 Chronic venous hypertension (idiopathic) with ulcer of right lower extremity; L97.818 Non-pressure chronic ulcer of other part of right lower leg with other specified severity; L89.611 Pressure ulcer of right heel, stage 1 | CPT/HCPCS: G0463 ==

== ENCOUNTER 2024-02-14 11:55 | Emergency (ER) | payer BC, MEDICARE, SELFPAY ==
[2024-02-14 12:00] VITALS: BP 129/63; PULSE 62; TEMP 36.7; O2SAT 99; BMI 34.9
--- NOTE | 2024-02-14 12:17 | XR_ITS ---
The [address] [address] Patient Name: JOEL STINSON MRN: [id number] date: 1960 Sex: M Assigned Patient Location: ER Current Patient Location: ER Accession/Order Number: [id number] Exam Date: 02/14/2024 12:40 Report Date: 02/14/2024 13:01 At the request of: RACHANA ARAIZA Procedure: XR tibia fibula RT 2V PROCEDURE: XR tibia fibula RT 2V HISTORY: Numerous chronic leg wounds, rule out air in soft COMPARISON: None. FINDINGS: BONES:No fracture, dislocation, bone lesion, periosteal reaction/destruction. Mild degenerative change of the knee joint and ankle joint. SOFT TISSUES:Soft tissue thickening and subcutaneous edema. No radiopaque foreign body. EFFUSION:None visible. OTHER: Negative. XR/XR tibia fibula RT 2V IMPRESSION: 1. No acute bone abnormality or findings to suggest osteomyelitis. Electronically authenticated by: ALIDA BRUNO Date: 02/14/2024 13:01
[2024-02-14 12:18] VITALS: O2SAT 100
[2024-02-14 12:32] LABS: Basophils Absolute Auto 0.1 10^3/uL (0.0-0.1); Basophils Percent Auto 0.5 % (0.2-2.0); Eosinophils Absolute Auto 1.3 10^3/uL (0.0-0.7); Eosinophils Percent Auto 8.6 % (0.9-7.0); Hematocrit 24.8 % (42.0-54.0); Hemoglobin 7.8 g/dL (14.0-18.0); Immature Granulocytes Abs Auto 0.16 10^3/uL (0.00-0.03); Immature Granulocytes Pct Auto 1.1 % (0.0-0.5); Lymphocytes Absolute Auto 1.3 10^3/uL (1.2-3.8); Lymphocytes Percent Auto 9.2 % (20.5-60.0); Mean Corpuscular HGB Conc 31.5 g/dL (29.9-35.2); Mean Corpuscular Hemoglobin 25.9 pg (25.9-34.0); Mean Corpuscular Volume 82.4 fL (80.0-94.0); Mean Platelet Volume 8.5 fL (9.5-13.5); Monocytes Absolute Auto 1.5 10^3/uL (0.3-0.8); Neutrophils Absolute Auto 10.3 10^3/uL (1.4-6.5); Neutrophils Percent Auto 70.6 % (43.0-75.0); Platelet Count 350 10^3/uL (150-450); Red Blood Count 3.01 10^6/uL (4.70-6.10); White Blood Count 14.6 10^3/uL (4.0-11.0)
--- NOTE | 2024-02-14 12:35 | ED_ITS ---
HPI - Extremity Problem General Chief complaint: Extremity Problem, Nontraumatic Stated complaint: LOWER EXTREMITY PAIN/SWELLING Time Seen by Provider: 02/14/24 12:15 Source: patient and family Mode of arrival: Wheelchair Limitations: no limitations History of Present Illness HPI Narrative: 63-year-old male presents for concern about infection in his right leg. He has chronic wounds for which she sees wound care clinic. He has an appointment in 2 days. He states his leg has become a little bit more red and a little bit more swollen than typical. No purulent drainage or fever. He has had no injury. He has paraplegia. Related Data Home Medications ?Medication ?Instructions ?Recorded ?Confirmed amlodipine 10 mg tablet 10 mg PO DAILY 10/06/22 07/30/23 atenolol 100 mg tablet 100 mg PO DAILY 10/06/22 07/30/23 citalopram 40 mg tablet 40 mg PO DAILY 10/06/22 07/30/23 glipizide 10 mg tablet 10 mg PO DAILY 10/06/22 07/30/23 lisinopril 20 mg tablet 20 mg PO DAILY 10/06/22 07/30/23 oxybutynin chloride 15 mg 15 mg PO DAILY 10/06/22 07/30/23 tablet,extended release 24 hr sitagliptin phosphate 100 mg 100 mg PO DAILY 10/06/22 07/30/23 tablet (Januvia) atorvastatin 40 mg tablet 40 mg PO DAILY 06/30/23 07/30/23 sulfamethoxazole 800 1 tab PO Q8H 06/30/23 07/30/23 mg-trimethoprim 160 mg tablet Previous Rx's ?Medication ?Instructions ?Recorded hydrocodone 5 mg-acetaminophen 325 1 tab PO Q8H PRN pain 7 days #21 07/08/23 mg tablet tabs ondansetron 4 mg disintegrating 4 mg PO Q8H PRN nausea and 07/08/23 tablet vomiting 5 days #15 tabs amoxicillin 500 mg-potassium 1 tab PO TID #15 tabs 11/08/23 clavulanate 125 mg tablet (Augmentin) clindamycin HCl 300 mg capsule 300 mg PO Q6H 10 days #40 caps 02/14/24 Allergies Allergy/AdvReac Type Severity Reaction Status Date / Time vancomycin Allergy renal Verified 06/30/23 13:44 failure omadacycline AdvReac Unknown kidney pain Verified 09/24/23 09:55 Review of Systems ROS Narrative A ten point review of systems is negative except as noted above. [facility] Medical History (Updated 02/14/24 @ 13:19 by Frank Corona MD) Pressure ulcer of both heels ?L89.619 - Pressure ulcer of right heel, unspecified stage (ICD-10) ?L89.629 - Pressure ulcer of left heel, unspecified stage (ICD-10) History of blood transfusion ?Z92.89 - Personal history of other medical treatment (ICD-10) Sacral decubitus ulcer ?L89.159 - Pressure ulcer of sacral region, unspecified stage (ICD-10) Cellulitis ?L03.90 - Cellulitis, unspecified (ICD-10) Anemia ?D64.9 - Anemia, unspecified (ICD-10) Iron deficiency anemia ?D50.9 - Iron deficiency anemia, unspecified (ICD-10) Neurogenic bladder ?N31.9 - Neuromuscular dysfunction of bladder, unspecified (ICD-10) Disc degeneration, lumbosacral ?M51.37 - Other intervertebral disc degeneration, lumbosacral region (ICD-10) Diabetes 1.5, managed as type 2 ?E13.9 - Other specified diabetes mellitus without complications (ICD-10) HTN (hypertension) ?I10 - Essential (primary) hypertension (ICD-10) Cauda equina spinal cord injury ?S34.3XXA - Injury of cauda equina, initial encounter (ICD-10) Paraplegic spinal paralysis ?G82.20 - Paraplegia, unspecified (ICD-10) Surgical History (Updated 01/06/23 @ 10:06 by Kirti Owen) Garwood filter in place ?Z95.828 - Presence of other vascular implants and grafts (ICD-10) History of urethrotomy ?Z98.890 - Other specified postprocedural states (ICD-10) History of cystoscopy ?Z98.890 - Other specified postprocedural states (ICD-10) History of back surgery ?Z98.890 - Other specified postprocedural states (ICD-10) History of appendectomy ?Z90.49 - Acquired absence of other specified parts of digestive tract (ICD- 10) Family History (Updated 11/25/22 @ 14:36 by Kylie Crockett) Mother Family history of hypertension Social History (Updated 01/11/23 @ 07:48 by Kirti Bertrand) Within the past year, how often did you have a drink containing alcohol: never Within the past year, how often did you have six or more drinks on one occasion: never Score interpretation: A score less than 4 is consistent with normal alcohol consumption. Smoking status: Never smoker Non-prescribed substance use: denies use Previous occupational history: retired Highest level of school completed/degree received: high school graduate Are you now , , , , never or living with a partner: In a typical week, how many times do you talk on the telephone with family, friends, or neighbors: 3 or more times per week How often do you get together with friends or relatives: twice per week How often do you attend sabianism or cheondoism services: never Do you belong to any clubs or organizations such as sabianism groups unions, fraternal or athletic groups, or school groups: no Total score: 2 Score interpretation: A score of greater than or equal to 2 indicates the lowest level of social isolation. Little interest or pleasure in doing things: not at all Feeling down, depressed, or hopeless: not at all Feel stressed/tense/nervous/anxious/difficulty sleeping: not at all Do you think of yourself as: straight/heterosexual Gender Identity: male Exam Narrative Exam Narrative: Nurses note and vital signs reviewed and patient is not hypoxic. General: The patient appears well and in no apparent distress. He is sitting in a chair. Skin: Warm, dry, no pallor noted. The right leg has numerous healing wounds present. No purulent drainage. There is some mild erythema. Head: Normocephalic, atraumatic Eye: Normal conjunctiva, no drainage Ears, Nose, Mouth, and Throat: oral mucosa is moist. Nares patent. Cardiovascular: Regular Rate and Rhythm Respiratory: Patient is in no distress, no accessory muscle use, lungs are clear to auscultation, no wheezing, rales or rhonchi GI: Soft and nontender Musculoskeletal: Right leg is as above. Neurological: A&O, normal speech Psychiatric: Cooperative Constitutional Vital Signs, click to edit/add: Last Vital Signs Temp 98.0 F 02/14/24 12:00 Pulse 62 02/14/24 12:00 Resp 18 02/14/24 12:00 BP 129/63 02/14/24 12:00 Pulse Ox 100 02/14/24 12:18 O2 Del Method Room Air 02/14/24 12:18 Course Vital Signs Vital signs: Vital Signs Temperature 98.0 F 02/14/24 12:00 Pulse Rate 62 02/14/24 12:00 Respiratory Rate 18 02/14/24 12:00 Blood Pressure 129/63 02/14/24 12:00 Pulse Oximetry 99 02/14/24 12:00 Oxygen Delivery Method Room Air 02/14/24 12:00 Temperature 98.0 F 02/14/24 12:00 Pulse Rate 62 02/14/24 12:00 Respiratory Rate 18 02/14/24 12:00 Blood Pressure 129/63 02/14/24 12:00 Pulse Oximetry 100 02/14/24 12:18 Oxygen Delivery Method Room Air 02/14/24 12:18 MDM - Extremity (Nontraumatic) MDM Narrative Medical decision making narrative: X-ray shows no evidence of osteomyelitis or air in the soft tissues. WBC is just slightly elevated. Will be placed on clindamycin and will see his wound care clinic in 2 days at his appointment. Treatment diagnosis and follow-up were discussed with the patient. Differential Diagnosis Differential diagnosis: Likely other (Cellulitis, osteomyelitis) Lab Data Attestation: I reviewed the patient's lab results. Labs: Lab Results 02/14/24 Range/Units 12:20 WBC 14.6 H (4.0-11.0) 10^3/uL RBC 3.01 L (4.70-6.10) 10^6/uL Hgb 7.8 L (14.0-18.0) g/dL Hct 24.8 L (42.0-54.0) % MCV 82.4 (80.0-94.0) fL MCH 25.9 (25.9-34.0) pg MCHC 31.5 (29.9-35.2) g/dL RDW 14.0 (11.0-15.0) % Plt Count 350 (150-450) 10^3/uL MPV 8.5 L (9.5-13.5) fL Neut % (Auto) 70.6 (43.0-75.0) % Lymph % (Auto) 9.2 L (20.5-60.0) % [place] % (Auto) 10.0 (1.7-12.0) % Eos % (Auto) 8.6 H (0.9-7.0) % Baso % (Auto) 0.5 (0.2-2.0) % Neut # (Auto) 10.3 H (1.4-6.5) 10^3/uL Lymph # (Auto) 1.3 (1.2-3.8) 10^3/uL Henderson # (Auto) 1.5 H (0.3-0.8) 10^3/uL Eos # (Auto) 1.3 H (0.0-0.7) 10^3/uL Baso # (Auto) 0.1 (0.0-0.1) 10^3/uL Abs Immat Gran (auto) 0.16 H (0.00-0.03) 10^3/uL Imm/Tot Granulo (auto) 1.1 H (0.0-0.5) % Sodium 138 (136-145) mmol/L Potassium 4.1 (3.5-5.1) mmol/L Chloride 103 (98-107) mmol/L Carbon Dioxide 23.7 (21.0-32.0) mmol/L Anion Gap 15.4 BUN 32.0 H (7.0-18.0) mg/dL Creatinine 2.26 H (0.70-1.30) mg/dL Est GFR ( Amer) 36 L (>=60 mL/min/1.73m^2) Est GFR (Non-Af Amer) 30 L (>=60 mL/min/1.73m^2) BUN/Creatinine Ratio 14.2 Glucose 202 H (74-106) mg/dL Calcium 8.2 L (8.5-10.1) mg/dL Imaging Data Right tibia: Radiologist's impression: ITS Impressions Tibia/Fibula X-Ray 02/14/24 12:17 IMPRESSION: 1. No acute bone abnormality or findings to suggest osteomyelitis. Electronically authenticated by: ALIDA BRUNO Date: 02/14/2024 13:01 Discharge Plan Discharge Chief Complaint: Extremity Problem, Nontraumatic Clinical Impression: Cellulitis of right leg Patient Disposition: Home, Self-Care Time of Disposition Decision: 13:19 Condition: Good Mode of Transportation: Private Vehicle Prescriptions / Home Meds: New clindamycin HCl 300 mg capsule 300 mg PO Q6H 10 Days Qty: 40 0RF No Action amoxicillin-pot clavulanate [Augmentin] 500-125 mg tablet 1 tab PO TID Qty: 15 0RF oxybutynin chloride 15 mg tablet extended release 24hr 15 mg PO DAILY citalopram 40 mg tablet 40 mg PO DAILY atenolol 100 mg tablet 100 mg PO DAILY lisinopril 20 mg tablet 20 mg PO DAILY glipizide 10 mg tablet 10 mg PO DAILY amlodipine 10 mg tablet 10 mg PO DAILY Januvia 100 mg tablet 100 mg PO DAILY sulfamethoxazole-trimethoprim 800-160 mg tablet 1 tab PO Q8H atorvastatin 40 mg tablet 40 mg PO DAILY hydrocodone-acetaminophen 5-325 mg tablet 1 tab PO Q8H PRN (Reason: pain) 7 Days Qty: 21 0RF ondansetron 4 mg tablet,disintegrating 4 mg PO Q8H PRN (Reason: nausea and vomiting) 5 Days Qty: 15 0RF Print Language: B[place]udian Instructions: Cellulitis (ED) Additional Instructions: [facility] wound care provider on Wednesday at your appointment Referrals: Fidel Reis MD [Primary Care Provider] - 1 week
[2024-02-14 12:48] LABS: Anion Gap 15.4; BUN Creatinine Ratio 14.2; Calcium 8.2 mg/dL (8.5-10.1); Carbon Dioxide 23.7 mmol/L (21.0-32.0); Chloride 103 mmol/L (98-107); Estimated GFR (African America 36 (>=60 mL/min/1.73m^2); Estimated GFR (Non-African Ame 30 (>=60 mL/min/1.73m^2); Glucose 202 mg/dL (74-106); Potassium 4.1 mmol/L (3.5-5.1); Sodium 138 mmol/L (136-145)
[2024-02-14 13:49] VITALS: PULSE 67; O2SAT 99
== END 2024-02-14 13:50 | disposition home or self-care (01) ==
PROVIDERS: Emergency Provider Emergency Medicine; PCP Family Medicine
DX: L03.115 Cellulitis of right lower limb (principal); D72.829 Elevated white blood cell count, unspecified; D50.9 Iron deficiency anemia, unspecified; K90.9 Intestinal malabsorption, unspecified; G82.20 Paraplegia, unspecified
CPT/HCPCS: 36415; 73590; 80048; 82607; 82728; 83540; 83550; 85025; 85652; 86140; 99284

== ENCOUNTER 2024-02-15 07:39 | Outpatient (RCR) | payer BC, MEDICARE, SELFPAY ==
[2024-02-14 16:31] LABS: Erythrocyte Sedimentation Rate 67 mm/hr (<=20)
[2024-02-14 16:34] LABS: C Reactive Protein 15.33 mg/dL (<=0.50)
[2024-02-14 16:49] LABS: Percent Iron Saturation 22.6 %
[2024-02-16 08:12] LABS: Vitamin B12 1145 pg/mL (232-1245)
== END 2024-02-17 09:21 | disposition home or self-care (01) ==
LOC: HEMC 07:39
PROVIDERS: PCP Family Medicine; Visit Provider Internal Medicine Hematology & Oncology
DX: D72.829 Elevated white blood cell count, unspecified (principal); D50.9 Iron deficiency anemia, unspecified; K90.9 Intestinal malabsorption, unspecified; D64.9 Anemia, unspecified; I10 Essential (primary) hypertension; G47.30 Sleep apnea, unspecified; G82.20 Paraplegia, unspecified; E11.69 Type 2 diabetes mellitus with other specified complication; M86.9 Osteomyelitis, unspecified; L03.90 Cellulitis, unspecified; N28.9 Disorder of kidney and ureter, unspecified
CPT/HCPCS: 36415; 82607; 82728; 83540; 83550; 85652; 86140; G0463

== ENCOUNTER 2024-02-16 13:43 | Outpatient (OUT) | payer BC, MEDICARE, SELFPAY ==
--- OUTSIDE RECORDS SUMMARY | 2024-02-16 13:54 | XMS_ITS | CCD ---
Author Organization [facility] Care Team Providers Care Instrument Lens Generator Name Role Phone WESTONMICHAELA Unavailable Unavailable NADERER, FIDEL LIEBERMAN Unavailable Unavailabl e AOUAD, THIAGO Sy Unavailable Unavailable BLOOD, GANGA Gutiérrez Unavailable Unavailable BRAMBILA, JAI Chowdhury Unavailable Unavailable AVERY, WILLIAM Unavailable Unavaila severiano PULLIAM, KHADAR Murphy Unavailable Unavailable NADERER, DR FIDEL [...] NADERER, DR FIDEL Tellez Primary Care Unavailable [place], DR KHADAR Edwards Consulting Unavailable BRAR, DR CATHY Edwards Consulting Unavailable MD Fidel Abbott Primary Care Provider [phone] MD Cathy Brar Attending Provider [phone] Fidel Abbott MD Primary Care Provider MD Fidel Abbott Primary Care Provider [phone] MD Cathy Brar Attending Provider [phone] Fidel Abbott MD Primary Care Provider SHELLY MONDRAGON Referring Unavail able NADEREFIDEL Christie Primary Care UnavailASHLEE Juan Referring Unavailable NADERER, FIDEL LIEBERMAN Primary Care UnavailASHLEE Juan Referring Unavailable NADERER, FIDEL LIEBERMAN Primary Care Unavailabl e ANGELES NAGY Referring Unavailable NADERER, FIDEL LUISANA Primary Care Unavailabl e ZACIEWSKI, ANGELES Attending Unavailable LILO, ANGELES Admitting Unavailable NADERER, FIDEL LUISANA Primary Care Unavailabl e IACOB, MATIAS Admitting Unavailable IACOB, MATIAS Attending Unavailable CANDIDATABBY, MARY K Consulting Unavailable NADERER, FIDEL RIOSONY Primary Care Unavailabl e ZACIKRISTYKI, ANGELES Consulting Unavailable BREMYYAKOV FITZPATRICK Consulting Unavailable CIARAROSIE NEIL Consulting Unavailable AHMAD, MICHELLE Garcia Consulting Unavailable MILLY, KATERINA Grijalva Consulting Unavailable NADERER, FIDEL RIOSONY Primary Care Unavailabl e ZACISTEVEN, ANGELES Referring Unavailable NADERER, FIDEL LUISANA Primary Care Unavailabl e ASHLEE ERWIN Referring Unavailable NADERER, FIDEL Primary Care Physician [phone] Milena NAZARIO, Fidel Primary Care Provider [phone] Fidel Abbott MD Unavailable Milena NAZARIO, Fidel Primary Care Provider MD Fidel Abbott Primary Care Provider [phone] MD Cathy Brar Attending Provider CRISTIANA Moffett Attending Provider CRISTIANA Bahena Attending Provider Khadar Guerrero Referring Unavailable NADERER, FIDEL Primary Care Unavailable NADERER, FIDEL Referring Unavailable Jovanny VILLA Attending Unavailable Jovanny VILLA Attending Unavailable ALLEN, Jovanny R Attending Unavailable VILLA, Jovanny R Referring Unavailable VILLA, Jovanny R Attending Unavailable ALLEN, Jovanny Christie Attending Unavailable Milena NAZARIO, Fidel Primary Care Provider Milena NAZARIO, Fidel Unavailable Fidel Abbott MD Primary Care Provider [phone] JONATHAN MOFFETT Attending Unavailable NADERER, FIDEL Attending Unavailable JONATHAN MOFFETT Attending Unavailable JONATHAN MOFFETT Attending Unavailable JONATHAN MOFFETT Referring Unavailable JONATHAN MOFFETT Attending Unavailable JONATHAN MOFFETT Attending Unavailable JONATHAN MOFFETT Attending Unavailable JONATHAN MOFFETT Attending Unavailable ROSALINO MOFFETTS A Attending Unavailable JONATHAN MOFFETT Attending Unavailable FIDEL ABBOTT Attending Unavailable MILENA, FIDEL Attending Unavailable JONATHAN MOFFETT Attending Unavailable Fidel Abbott MD Primary Care Provider Nina River MD Attending Provider Cathy Brar MD Attending Provider Brar, Cathy Admitting Unavailable Maykel Cathy Attending Unavailable Fidel Abbott Primary Care Unavailable Jonathan Moffett Admitting Unavailable Jonathan Moffett Attending Unavailable Fidel Abbott Primary Care Unavailable Bubba Bahena Admitting Unavailable Bubba Bahena Attending Unavailable Maykel, Cathy Admitting Unavailable Cathy Brar Attending Unavailable Fdiel Abbott Primary Care Unavailable Milena, Fidel Primary Care Unavailable Aleta, Nina Admitting Unavailable Nina River Attending Unavailable Cathy Brar Admitting Unavailable Cathy Brar Attending Unavailable Fidel Abbott Primary Care Unavailable Allergies Allergy Classification Reported Allergen(s) Allergy Type Date of Onset Reaction(s) Facility (7 sources) Vancomycin; 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: [VANCOMYCIN] Drug Allergy 6 Shut kidneys down [facility] (15 sources) Vancomycin Drug Allergy 6 Other, Unknown, Other (See Comments) [facility] (11 sources) omadacycline; 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: [omadacycl] Drug allergy 3 Renal pain (finding) [facility] (4 sources) ferrous sulfate; 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: [ferrous sulfate] Drug Allergy 3 Itching [facility] (1 source) Vancomycin Drug Allergy 3 [facility] Repository Medications Current Medications Medication Drug Class(es) Dates Sig (Normalized) Sig (Original) Acetaminophen (1 source) Start: 06-22-2022 acetaminophen (TYLENOL) tablet 650 mg amLODIPine 10 mg oral tablet (20 sources) Dihydropyridine Calcium Channel [place] Start: 12-07-2016 End: 12-08-2016 Amlodipine Discontinued December 07, 2016 12:00am December 08, 2016 2:50pm Start: 12-07-2016 End: 12-08-2016 Amlodipine Discontinued Nov 11:00pm December 08, 2016 1:50pm Start: 06-27-2016 take 1 tablet by mack th once daily amLODIPine (Norvasc) 10 MG tablet Indications: Primary hypertension (CMS/HCC) Take 1 tablet by mouth once daily 30 tablet 02/02/2024 Active End: 06-26-2022 take 2 tablets by mouth once daily amlodipine (NORVASC) 5 MG tablet Take 10 mg by mouth daily 0 06/26/2022 Discontinued (Stop Taking at Discharge) atenolol 100 mg oral tablet (20 sources) beta-Adrenergic [place] Start: 06-23-2022 take 100 mg by mouth once daily 100 mg, Oral, DAILY, First dose on Wed06/23/22 at 0900, Until Discontinued Start: 06-29-2016 End: 08-10-2024 take 1 tablet by mouth once daily atenolol (Tenormin) 100 MG tablet Indications: Benign hypertension (CMS/HCC) Take 1 tablet (100 mg) by mouth Daily 30 tablet 08/11/2023 08/10/2024 Active End: 06-26-2022 take 2 tablets by mouth once daily atenolol (TENORMIN) 50 MG tablet Take 100 mg by mouth daily. 0 06/26/2022 Discontinued (Stop Taking at Discharge) atorvastatin 40 mg oral tablet (11 sources) HMG-CoA Reductase Inhibitor Start: 04-06-2023 End: 04-05-2024 take 1 tablet by mouth in the morning atorvastatin (Lipitor) 40 MG tablet Indications: Dyslipidemia (CMS/HCC) TAKE 1 TABLET BY MOUTH IN THE MORNING 30 tablet 01/06/2024 Active citalopram 40 mg oral tablet (20 sources) Serotonin Reuptake Inhibitor Start: 06-23-2022 take 40 mg by mouth once daily 40 mg, Oral, DAILY, First dose on Wed06/23/22 at 0900, Until Discontinued Start: 09-22-2016 End: 08-10-2024 take 1 tablet by mouth once daily citalopram (CeleXA) 40 MG tablet Indications: Major depressive disorder, recurrent episode, mild (HCC) (CMS/HCC) Take 1 tablet (40 mg) by mouth Daily 30 tablet 11 08/11/2023 08/10/2024 Active End: 06-26-2022 take 2 tablets by mouth once daily citalopram (CELEXA) 20 MG tablet Take 40 mg by mouth daily 0 06/26/2022 Discontinued (Stop Taking at Discharge) clindamycin 300 mg oral capsule (9 sources) Lincosamide Antibacterial Start: 05-13-2023 End: 05-23-2023 [...] IVPB Start: 07-28-2018 End: 11-17-2018 Clindamycin Hcl 150 mg Capsu le Discontinued July 27, 2018 11:00pm November 17, 2018 9:14am Start: 07-28-2018 End: 11-17-2018 Clindamycin Hcl Discontinued [...] 06/26/2022 Active fenofibrate 145 mg oral tablet (20 sources) Peroxisome Proliferator Receptor alpha Agonist Start: 02-13-2023 take 1 tablet by mouth once daily at bedtime Fenofibrate Nanocrystallized 145 mg Tablet Active 145 MG PO Daily at bedtime 0 February 13, 2023 12:00am Start: 06-23-2022 take 160 mg by mouth once daily 160 mg, Oral, DAILY, First dose on Wed06/23/22 at 0900, Until Discontinued Substituted for Fenofibrate (Non-Formulary Dose). Start: 12-07-2016 End: 11-19-2020 Fenofibrate 150 mg Capsule Discontinued 145 MG PO Daily at bedtime December 06, 2016 11:00pm November 19, 2020 10:09am Start: 12-07-2016 End: 11-19-2020 take 145 mg by mouth once daily at bedtime Fenofibrate Discontinued 145 MG PO Daily at bedtime December 07, 2016 12:00am November 19, 2020 11:09am Start: 09-22-2016 End: 02-07-2023 take 1 tablet by mouth once daily at bedtime Fenofibrate Nanocrystallized 145 mg tablet Discontinued 145 MG PO Daily at bedtime November 18, 2020 11:00pm February 07, 2023 3:16pm Gauze Pads & Dressings (KERLIX GAUZE ROLL MEDIUM) MISC (3 sources) Start: 06-26-2022 Gauze Pads & Dressings (KERLIX GAUZE ROLL MEDIUM) MISC 2 each by Does not apply route daily 96 each 2 06/26/2022 Active glipiZIDE 10 mg oral tablet (20 sources) Sulfonylurea Start: 06-30-2018 take 1 tablet by mouth in the morning glipiZIDE (Glucotrol) 10 MG tablet Indications: Type 2 diabetes mellitus with hyperglycemia, without long-term current use of insulin ([facility]) Take 1 tablet (10 mg) by mouth in the morning and 1 tablet (10 mg) before bedtime. 60 tablet 09/02/2023 Active hydrOXYzine hydrochloride 50 mg oral tablet (4 sources) Antihistamine Start: 02-01-2024 take 1 tablet by mouth four times daily as needed hydrOXYzine HCl (Atarax) 50 MG tablet Indications: Pruritus Take 1 tablet (50 mg) by mouth 4 (four) times a day as needed for itching 30 tablet 2 02/01/2024 Active Start: 01-17-2024 End: 01-20-2024 take 1 tablet by mouth four times daily as needed hydrOXYzine HCl (Atarax) 50 MG tablet Indications: Pruritus Take 1 tablet (50 mg) by mouth 4 (four) times a day as needed for itching 30 tablet 2 01/17/2024 01/20/2024 Discontinued sodium hypochlorite 1.25 mg/ ml topical spray (14 sources) Start: 06-26-2022 sodium hypochl orite (DAKINS) [...] Discontinued 1 APPLIC TOPICAL Daily 473 October 06, 2017 11:00pm November 03, 2017 1:58pm 3 ml insulin lispro 100 unt/ml pen injector (2 sources) Insulin Analog Start: 05-19-2018 Insulin Lispro (Humalog Kwikpen Insulin) 100 unit/mL Insulin Pen Active 0 .ROUTE .COMPLEX May 19, 2018 1:00am SLIDING SCALE Iron (2 sources) Start: 11-09-2022 IRON 65MG TAB IRON 65MG TAB Start Date: 11/09/22 Status: Ordered lisinopril 20 mg oral tablet (20 sources) Angiotensin Converting Enzyme Inhibitor Start: 01-05-2024 take 1 tablet by mouth once daily lisinopril 20 MG tablet Indications: Benign hypertension (CMS/HCC) Take 1 tablet by mouth once daily 30 tablet 01/05/2024 Active Start: 11-09-2022 lisinopril 20 mg Tab Refills(s) 0 Start Date: 11/09/22 Status: Ordered Start: 01-01-2017 take 10 mg by mouth once daily lisinopril (PRINIVIL,ZESTRIL) 20 mg tablet Take 10 mg by mouth daily. 01/01/2017 Active Start: 12-07-2016 take 2 tablets by mo uth once daily in the morning Lisinopril 10 mg Tablet Active 20 MG PO Every morning December 06, 2016 11:00pm Start: 12-07-2016 take 20 mg by mouth once daily in the morning Lisinopril Active 20 MG PO Every morning December 07, 2016 12:00am take 0.5 tablet by m outh once daily lisinopril (PRINIVIL;ZESTRIL) 20 MG tablet Take 0.5 tablets by mouth daily 0 Active Multiple Vitamin [...] chloride 5 mg extended release oral tablet (20 sources) Cholinergic Muscarinic Antagonist Start: 02-13-2023 take 1 tablet by mouth once daily Oxybutynin Chloride 5 mg Tablet Extended Release 24hr Active 15 MG PO Daily February 13, 2023 12:00am On Hold: not taking Start: 02-13-2023 take 15 mg by mouth once daily Oxybutynin Chloride Active 15 MG PO Daily February 13, 2023 1:00am Start: 11-09-2022 oxybutynin 15 mg ER Tab Refills(s) 0 Start Date: 11/09/22 Status: Ordered Start: 11-09-2022 take 1 tablet by mack once daily Oxybutynin Chloride 15 mg tablet extended release 24hr Active 15 MG PO Daily February 07, 2023 12:00am Start: 03-23-2019 End: 02-07-2023 take 1 tablet by mouth once daily Oxybutynin Chloride 10 mg Tablet Extended Release 24hr Discontinued 10 MG PO Daily March 23, 2019 12:00am February 07, 2023 7:56am predniSONE 50 mg oral tablet (3 sources) Start: 01-17-2024 End: 01-23-2024 take 1 tablet by mouth once daily predniSONE (Deltasone) 50 MG tablet Indications: Pruritus Take 1 tablet (50 mg) by mouth Daily for 6 days 6 tablet 01/17/2024 01/23/2024 Active SITagliptin 100 mg oral tablet (13 sources) Dipeptidyl Peptidase 4 Inhibitor Start: 07-29-2021 take 1 tablet by mouth once daily Januvia 100 MG tablet Indications: Type 2 diabetes mellitus with hyperglycemia, without long-term current use of insulin (CMS/HCC) Take 1 tablet by mouth once daily 30 tablet 01/05/2024 Active 1000 ml sodium chloride 9 mg/ml injection [...] / HYDROcodone bitartrate 5 mg oral tablet (13 sources) Opioid Agonist Start: 09-04-2021 End: 02-06-2023 take 1 tablet by mouth every six hours as needed for pain Hydrocodone-Acetami nophen 5-325 mg tablet Discontinued 1 TAB PO Q6H as needed for pain 23 10September 08, 2022 February 06, 2023 9:43pm Start: 11-15-2017 End: 11-22-2017 take 1 tablet by mouth every six hours as needed for pain Hydrocodone-Acetaminophen 5-325 mg table t Discontinued 1 TAB PO Q6H as needed for pain 23 10November 15, 2017 November 20, 2017 11:00pm November 21, 2017 11:01pm amoxicillin 500 mg / clavulanate 125 mg oral tablet (13 sources) Penicillin-class Antibacterial Start: 12-01-2022 End: 02-07-2023 take 1 tablet by mouth every twelve hours Amoxicillin-Pot Clavulanate 500-125 mg tablet Discontinued 1 TAB PO Q12H November 30, 2022 11:00pm February 07, 2023 3:16pm Start: 04-30-2020 End: 05-06-2020 take 1 tablet by mouth twice daily Amoxicillin-Pot Clavulanate (Augmentin) 875-125 mg Tablet Discontinued 1 TAB PO Twice daily April 30, 2020 12:00am May 06, 2020 6:39pm Start: 10-12-2017 End: 10-26-2017 take 1 tablet by mouth twice daily Amoxicillin-Pot Clavulanate (Augmentin) 875-125 mg tablet Discontinued 1 TAB PO Twice daily October 11, 2017 11:00pm October 24, 2017 11:00pm October 25, 2017 11:01pm betamethasone 0.001 mg/mg topical ointment (5 sources) Corticosteroid Start: 11-17-2018 End: 03-23-2019 Betamethasone Valerate 0.1 % ointment Discontinued 1 APPLIC TOPICAL Daily as needed for skin irritation November 17, 2018 9:49am March 23, 2019 11:03am use for 2 wks on and 1 wk off to affected area calcium gluconate 1,000 mg in sodium chloride 0.9 % 100 mL IVPB (1 source) Start: 06-22-2022 End: 06-22-2022 calcium gluconate 1,000 mg in sodium chloride 0.9 % 100 mL IVPB cephalexin 500 mg oral capsule (5 sources) Cephalosporin Antibacterial Start: 11-30-2017 End: 12-16-2017 take 1 capsule by mouth three times daily Cephalexin 500 mg Capsule Discontinued 500 MG PO Three times daily November 29, 2017 11:00pm December 16, 2017 9:12am x10 days as ordered per Dr. Brar ciprofloxacin 500 mg oral tablet (1 source) Quinolone Antimicrobial Start: 09-17-2023 take 1 tablet by mouth once daily Cipro 500 mg Tab 500 mg = 1 tab(s), Oral, Daily, Take 1 tablet the day before the procedure and 1 tablet after the procedure, # 2 tab(s), Refills(s) 0, Pharmacy: [id number], 180, cm, 11/09/22 13:16:00 EDT, Height/Length Dosing, 113, kg, 11/09/22 13:16:00 EDT, Weight Dosing Start Date: 09/17/23 Status: Ordered dicloxacillin 500 mg oral capsule (5 sources) Penicillin-class Antibacterial Start: 06-01-2017 End: 08-24-2017 take 1 capsule by mouth three times daily Dicloxacillin 500 mg Capsule Discontinued 500 MG PO Three times daily June 01, 2017 12:00am August 24, 2017 9:21am doxycycline hyclate 100 mg oral capsule (5 sources) Tetracycline-class Drug Start: 03-23-2019 End: 01-02-2020 take 1 capsule by mouth twice daily Doxycycline Hyclate 100 mg capsule Discontinued 100 MG PO Twice daily 56 March 23, 2019 12:00am January 02, 2020 10:08am ferrous sulfate 325 mg oral tablet (6 sources) Start: 10-27-2022 End: 05-04-2023 take 1 tablet by mouth once daily Ferrous Sulfate 325 mg (65 mg iron) tablet Discontinued 325 MG PO Daily October 26, 2022 11:00pm May 04, 2023 11:25am Start: 06-26-2022 take 1 tablet by mack th once daily at breakfast ferrous sulfate (IRON 325) 325 (65 Fe) MG tablet Take 1 tablet by mouth daily (with breakfast) 90 tablet 1 06/26/2022 Active gentamicin 0.001 mg/mg topic al ointment (10 sources) Start: 11-23-2017 End: 05-19-2018 Gentamicin 0.1 % ointment Discontinued 1 APPLIC TOPICAL Daily November 22, 2017 11:00pm May 19, 2018 11:36am apply to ulcers as directed Start: 04-08-2017 End: 11-02-2017 Gentamicin 0.1 % ointment Di scontinued 1 APPLIC TOPICAL Daily April 08, 2017 12:00am November 02, 2017 10:29am apply to sacral ulcer daily gentamicin (GARAMYCIN) [...] insulin aspart, human 100 unt/ml injectable solution (7 sources) Insulin Analog Start: 12-07-2016 End: 05-19-2018 inject 1 [IU] by subcutaneous injection three times daily at mealtime Insulin Aspart U-100 (Novolog) 100 unit/mL Solution Discontinued 1 UNITS SUBCUT THREE TIMES DAILY WITH MEALS December 06, 2016 11:00pm May 19, 2018 11:36am Patient not sure of actual corrective scale but felt this was correct Please contact the information source for Protocol details. Start: 05-29-2016 inject 2 [IU] by sub cutaneous injection three times daily before mealtime, then inject 16 [IU] by subcutaneous injection three times daily before mealtime insulin aspart (NovoLOG) 100 unit/mL insulin pen Inject 2 Units under the skin 3 (three) times a day before meals. 3 TIMES DAILY BEFORE MEALS: SLIDING SCALE IF BS: BELOW 100 - 0 UNITS 100-150 - 2 UNITS 151-200 - 4 UNITS 201-250 - 6 UNITS 251-300 - 8 UNITS 301-350 - 10 UNITS 351-400 - 12 UNITS 401-450 - 14 UNITS 450 OR GREATER 16 UNITS 05/29/2016 Active insulin glargine 100 unt/ml injectable solution (5 sources) Insulin Analog Start: 04-13-2017 End: 06-26-2022 insulin glargine (LANTUS) 100 UNIT/ML injection vial Inject 45 Units into the skin 2 times daily 1 vial 3 04/13/2017 06/26/2022 Discontinued (Stop Taking at Discharge) Start: 10-14-2016 inject 40 [IU] by paul bcutaneous injection twice daily insulin glargine (LANTUS) 100 unit/mL injection Inject 40 Units under the skin 2 (two) times a day. 10/14/2016 Active Insulin Glargine (Lantus) 100 unit/mL Solution (5 sources) Start: 12-07-2016 End: 09-08-2022 inject 50 [IU] by subcutaneous injection twice daily Insulin Glargine (Lantus) 100 unit/mL Solution Discontinued 50 UNITS SUBCUT Twice daily December 06, 2016 11:00pm September 08, 2022 10:16am Start: 12-07-2016 End: 09-08-2022 inject 50 [IU] [...] (Humalog Kwikpen Insulin) 100 unit/mL Insulin Pen (3 sources) Start: 05-19-2018 End: 09-08-2022 Insulin Lispro (Humalog Kwik pen Insulin) 100 unit/mL Insulin Pen Discontinued 0 .ROUTE .COMPLEX May 19, 2018 12:00am September 08, 2022 10:16am SLIDING SCALE Start: 05-19-2018 End: 09-08-2022 Insulin Lispro (Humalog Kwik pen Insulin) 100 unit/mL Insulin Pen Discontinued 0 .ROUTE .COMPLEX May 19, 2018 1:00am September 08, 2022 11:16am SLIDING SCALE insulin, regular, human 100 unt/ml injectable solution (1 source) Insulin Start: 06-22-2022 End: 06-22-2022 insulin regular (HUMULIN R;NOVOLIN R) injection 10 Units levoFLOXacin 750 mg oral tablet (11 sources) Quinolone Antimicrobial Start: 02-13-2023 End: 05-04-2023 take 1 tablet by mouth once daily Levofloxacin 750 mg Tablet Discontinued 750 MG PO Daily February 13, 2023 12:00am May 04, 2023 11:23am Start: 12-01-2022 End: 02-07-2023 take 1 tablet by mouth once daily Levofloxacin 500 mg tablet Discontinued 500 MG PO Daily November 30, 2022 11:00pm February 07, 2023 3:16pm Start: 10-16-2021 End: 11-18-2021 take 1 tablet by mouth once daily Levofloxacin 750 mg Tablet Discontinued 750 MG PO Daily October 15, 2021 11:00pm November 18, 2021 10:49am x6 weeks, Called to pharmacy 09/09/2021 polyethylene glycol 3350 43341 mg powder for oral solution (1 source) Osmotic Laxative Start: 06-22-2022 17 g, Oral, D AILY PRN, Starting on Wed06/22/22 at 2018, Until Discontinued, Constipation First line therapy for constipation polyethylene glycol 3350 023303 mg / potassium chloride 2970 mg / sodium bicarbonate 6740 mg / sodium chloride 5860 mg / sodium sulfate 88365 mg powder for oral solution (1 source) Osmotic Laxative Start: 06-25-2022 End: 06-25-2022 polyethylene glycol (GoLYTELY) solution 4,000 mL Start: 06-25-2022 End: 06-25-2022 polyethylene glycol (GoLYTEL Y) solution 4,000 mL rosuvastatin calcium 20 mg oral tablet (10 sources) HMG-CoA Reductase Inhibitor Start: 06-07-2016 End: 06-26-2022 take 1 tablet by mouth once daily Rosuvastatin (Crestor) 20 mg Tablet Discontinued 20 MG PO Daily December 06, 2016 11:00pm March 23, 2019 11:03am silver sulfADIAZINE 10 mg/ml topical cream (5 sources) Sulfonamide Antibacterial Start: 09-22-2018 End: 03-23-2019 Silver Sulfadiazine (Silvadene) 1 % cream Discontinued 1 APPLIC TOPICAL Daily 400 September 21, 2018 11:00pm March 23, 2019 11:03am apply a 1.5 mm thickness sodium polystyrene sulfonate 250 mg/ml oral suspension (1 source) Start: 06-22-2022 End: 06-22-2022 sodium polystyrene (KAYEXALATE) 15 GM/60ML suspension 45 g sodium zirconium cyclosilicate 38648 mg powder for oral suspension (1 source) Start: 06-23-2022 End: 06-23-2022 sodium zirconium cyclosilicate (LOKELMA) oral suspension 10 g sulfamethoxazole 800 mg / trimethoprim 160 mg oral tablet (15 sources) Dihydrofolate Reductase Inhibitor Antibacterial, Sulfonamide Antimicrobial Start: 04-07-2018 End: 11-18-2021 take 1 tablet by mouth once daily Sulfamethoxazole-T rimethoprim (Bactrim Ds) 800-160 mg Tablet Discontinued 1 TAB PO Daily April 07, 2018 12:00am November 18, 2021 10:49am Start: 06-22-2017 End: 08-24-2017 take 1 tablet by mouth twice daily Sulfamethoxazole-Trimethoprim (Bactrim D s) 800-160 mg Tablet Discontinued 1 TAB PO Twice daily June 21, 2017 11:00pm August 24, 2017 9:21am Start: 12-07-2016 End: 12-08-2016 Bactrim Discontinued [facility] 2016 12:00am December 08, 2016 2:50pm Start: 12-07-2016 End: 12-08-2016 Bactrim Discontinued [facility] 2016 11:00pm December 08, 2016 1:50pm triamcinolone acetonide 5 mg/ml topical cream (3 sources) Corticosteroid Start: 02-07-2023 End: 05-04-2023 Triamcinolone Acetonide 0.5 % cream Discontinued 0.5 APPLIC TOPICAL Three times daily February 07, 2023 12:00am May 04, 2023 11:25am Problems Active Problems Problem Classification Problem Date Documented Date Episodic/Chronic Allergic reactions (5 sources) Urticaria; 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: [Urticaria, unspecified] Onset: 4 01-20-2024 Episodic Chronic kidney disease (17 sources) Chronic kidney disease; 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: [Chronic kidney disease, unspecified] Onset: 4 06-30-2018 Chronic Chronic ulcer of skin (20 sources) Non-pressure chronic ulcer of skin of other sites with other specified severity; 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: [Pressure ulcer of unspecified site, unspecified stage] Onset: 4 Resolved: 8 12-10-2016 Chronic Complication of device; implant or graft (10 sources) Injury of cauda equina ; 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: [...] Episodic Deficiency and other anemia (2 sources) Anemia 11-09-2022 Episodic Deficiency and other anemia (3 sources) Microcytic anemia; 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: [Iron deficiency anemia, unspecified] 02-07-2023 Episodic Diabetes mellitus with complications (20 sources) Type 2 diabetes mellitus with hyperglycemia; 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: [Diabetic foot ulcer] Onset: 2 Chronic Diabetes mellitus without complication (14 sources) Diabetes mellitus; 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: [Type 2 diabetes mellitus without complications] Onset: 2 05-06-2020 Chronic Diseases of white blood cells (1 source) Elevated white blood cell count, unspecified; 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: [Elevated white blood cell count, unspecified] Onset: 4 Chronic Disorders of lipid metabolism (15 sources) Mixed hyperlipidemia; 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: [Mixed hyperlipidemia] Onset: 6 04-25-2015 Chronic Essential hypertension (18 sources) Hypertensive disorder; 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: [Essential (primary) hypertension] Onset: 4 12-24-2016 Chronic Comment on above: d/t Vancomycin use a ffected kidneys Gastritis and duodenitis (8 sources) Chronic superficial gastritis; 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: [Chronic superficial 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] Onset: 4 04-06-2023 Chronic Genitourinary symptoms and ill-defined conditions (10 sources) Incontinence without sensory awareness; 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: [Incontinence without sensory awareness] Onset: 3 Chronic Genitourinary symptoms and ill-defined conditions (5 sources) Retention of urine; 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: [Retention of urine, unspecified] Onset: 3 Episodic Infective arthritis and osteomyelitis (except that caused by tuberculosis or sexually transmitted disease) (20 sources) Osteomyelitis of right foot; 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: [Osteomyelitis, unspecified] Onset: 7 Resolved: 8 12-28-2016 Chronic Mood disorders (13 sources) Depressive disorder; 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: [Depression] Onset: 4 12-24-2016 Chronic Other aftercare (4 sources) Long-term current use of drug therapy; 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: [Other mcc (current) drug therapy] Onset: 4 11-18-2023 Episodic Other diseases of bladder and urethra (8 sources) Neurogenic bladder; 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: [Neuromuscular dysfunction of bladder, unspecified] Onset: 3 Chronic Other diseases of bladder and urethra (1 source) Neuromuscular dysfunction of bladder, unspecified; 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: [Neuromuscular dysfunction of bladder, unspecified] Onset: 3 Chronic Other diseases of bladder and urethra (1 source) Neurogenic dysfunction of the urinary bladder; 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: [Neuromuscular dysfunction of bladder, unspecified] Onset: 3 Chronic Other diseases of bladder and urethra (3 sources) Male urethral stricture; 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: [Unspecified urethral stricture, male, unspecified site] Onset: 3 Episodic Other diseases of veins and lymphatics (2 sources) Vascular insufficiency; 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: [Venous insufficiency (chronic) (peripheral)] 05-06-2023 Episodic Other injuries and conditions due to external causes (5 sources) Injury of cauda equina ; 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: [Injury of cauda equina, subsequent encounter] 06-01-2017 Episodic Other nervous system disorders (5 sources) Acute postoperative pain; 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: [Other acute postprocedural pain] 09-04-2021 Episodic Other non-traumatic joint disorders (6 sources) Pain in right hip; 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: [Pain in joint, pelvic region and thigh] Onset: 2 Episodic Other non-traumatic joint disorders (5 sources) Hip pain; 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: [Pain in right hip] 01-27-2022 Episodic Other nutritional; endocrine; and metabolic disorders (5 sources) Obesity; 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: [Obesity, unspecified] 09-23-2017 Chronic Other nutritional; endocrine; and metabolic disorders (5 sources) Morbid obesity; 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: [Morbid (severe) obesity due to excess calories] Onset: 7 01-01-2017 Chronic Other screening for suspected conditions (not mental disorders or infectious disease) (4 sources) Electrocardiogram abnormal; 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: [Abnormal electrocardiogram [ECG] [EKG]] Onset: 3 Episodic Paralysis (20 sources) Cauda equina syndrome; 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: [Cauda equina syndrome] Onset: 1 04-30-2020 Chronic Peripheral and visceral atherosclerosis (3 sources) Peripheral vascular disease, unspecified; 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: [Peripheral arterial disease] 02-07-2023 Chronic Residual codes; unclassified (2 sources) Sleep apnea 11-09-2022 Chronic Residual codes; unclassified (8 sources) Obstructive sleep apnea syndrome; 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: [Obstructive sleep apnea (adult) (pediatric)] Onset: 4 04-06-2023 Chronic Residual codes; unclassified (5 sources) Pain; 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: [Pain, unspecified] 05-19-2018 Episodic Skin and subcutaneous tissue infections (20 sources) Cellulitis, unspecified; 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: [Cellulitis] Onset: 1 Resolved: 8 04-20-2019 Episodic Spondylosis; intervertebral disc disorders; other back problems (3 sources) Sacral back pain; 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: [Sacrococcygeal disorders, not elsewhere classified] 09-08-2022 Episodic Unclassified (1 source) Pressure ulcer of sacral region, stage 4; 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: [Pressure ulcer of sacral region, stage 4] Onset: 3 Past or Other Problems Problem Classification Problem Date Documented Date Episodic/Chronic Acute and unspecified renal failure (16 sources) [id number] renal failure; 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: [Acute kidney failure, unspecified] Onset: 12-30-2016 12-30-2016 Episodic Bacterial infection; unspecified site (15 sources) Infection due to enterococcus; 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: [Enterococcus as the cause of diseases classified elsewhere] Onset: 12-28-2016 12-28-2016 Episodic Deficiency and other anemia (1 source) Iron deficiency anemia, unspecified; 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: [Iron deficiency anemia, unspecified] Onset: 06-26-2022 Episodic Fluid and electrolyte disorders (13 sources) Hyponatremia; 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: [Hypo-osmolality and hyponatremia] Onset: 04-25-2015 04-25-2015 Episodic Open wounds of extremities (11 sources) Open wound of lower limb with complication; 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: [Unspecified open wound, unspecified knee, initial encounter] Onset: 02-25-2011 01-07-2017 Episodic Other inflammatory condition of skin (4 sources) Pruritus, unspecified; 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: [Unspecified pruritic disorder] Onset: 11-18-2023 Resolved: 01-20-2024 11-18-2023 Episodic Other skin disorders (8 sources) Vesicular eczema; 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: [Dyshidrosis [pompholyx]] Onset: 04-06-2023 04-06-2023 Episodic Septicemia (except in labor) (5 sources) Sepsis due to methicillin resistant Staphylococcus aureus; 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: [Sepsis due to Methicillin resistant Staphylococcus aureus] Onset: 09-09-2016 Resolved: 05-26-2017 05-26-2017 Episodic Urinary tract infections (8 sources) Recurrent urinary tract infection; 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: [Urinary tract infection, site not specified] Onset: 04-06-2023 04-06-2023 Episodic Results Test Name Value Interpretation Reference Range Facility ALL SED RATEon 02-14-2024 Interpretation and review of laboratory results Abnormal [facility] Healthcare TB SED RATE 67 High NINF [facility] CLINISYNC [facility] Basic Metabolic Panelon 01-27 Anion gap [Moles/Vol] 9.9 mmol/L Normal 6.0-15.0 [facility] Comment on above: Performed By: #### B MP, FE PRO, B12, ESR, CRP, CBC #### [facility] [address] [place] [id number] [place] Calcium [Mass/Vol] 7.6 mg/dL Low 8.6-10.3 [facility] Comment on above: Performed By: #### B MP, FE PRO, B12, ESR, CRP, CBC #### [facility] [address] [place] [id number] [place] Chloride [Moles/Vol] 106 mmol/L Normal 98-107 [facility] Comment on above: Performed By: #### B MP, FE PRO, B12, ESR, CRP, CBC #### [facility] [address] [place] [id number] [place] CO2 [Moles/Vol] 26.1 mmol/L Normal 21.0-31.0 [facility] Comment on above: Performed By: #### B MP, FE PRO, B12, ESR, CRP, CBC #### [facility] [address] Creatinine [Mass/Vol] 1.59 mg/dL High 0.70-1.30 [facility] Comment on above: Performed By: #### B MP, FE PRO, B12, ESR, CRP, CBC #### [facility] [address] [place] [address] [place] GFR/1.73 sq M.predicted MDRD (S/P/Bld) [Vol rate/Area] 48.779 mL/min/{1.73_m2} Normal [facility] Comment on above: Performed By: #### B MP, FE PRO, B12, ESR, CRP, CBC #### [address] Glucose [Mass/Vol] 128 mg/dL High 70-100 [facility] Comment on above: Result Comment: [place] Glucose Reference Range is dependent on time and content of last meal. Glucose of more than 200 mg/dL in a nonstressed, ambulatory subject supports the diagnosis of Diabetes Mellitus. ADA recommended reference range Performed By: #### B MP, FE PRO, B12, ESR, CRP, CBC #### [address] Potassium [Moles/Vol] 4.0 mmol/L Normal 3.5-5.1 [facility] Comment on above: Performed By: #### B MP, FE PRO, B12, ESR, CRP, CBC #### [address] Sodium [Moles/Vol] 138 mmol/L Normal 136-145 [facility] Comment on above: Performed By: #### B MP, FE PRO, B12, ESR, CRP, CBC #### [address] Urea nitrogen [Mass/Vol] 24 mg/dL Normal 7-25 [facility] Comment on above: Performed By: #### B MP, FE PRO, B12, ESR, CRP, CBC #### [place] [id number] [facility] Basophils Auto (Bld) [#/Vol] Ordered By: Nina Aleta on 02-08-2024 Basophils (Bld) [#/Vol] Automated basophil count 0.0-0.2 [facility] Basophils/100 WBC Auto (Bld) Ordered By: Nina Aleta on 02-08-2024 Basophils/100 WBC (Bld) Automated basophil % . [facility] C reactive protein [Mass/vol ume] in Serum or PlasmaOrdered By: Nina Aleta on 02-08-2024 CRP [Mass/Vol] C reactive protein [Mass/volume] in Serum or Plasma High 0.0-0.5 [facility] C-Reactive Proteinon C-Reactive Protein 10.7 mg/dL High 0.0-0.5 [facility] Comment on above: Performed By: #### B MP, FE PRO, B12, ESR, CRP, CBC #### [facility] [address] [id number] [facility] Calcium [Mass/volume] in Ser um or PlasmaOrdered By: Nina Aleta on 02-08-2024 Calcium [Mass/Vol] Calcium [Mass/volume ] in Serum or Plasma Low 8.6-10.3 [facility] Carbon dioxide, total [Moles /volume] in Serum or PlasmaOrdered By: Nina Aleta on 02-08-2024 CO2 [Moles/Vol] Carbon dioxide, tota l [Moles/volume] in Serum or Plasma 21.0-31.0 [facility] Chloride [Moles/volume] in S tremayne or PlasmaOrdered By: Nina Aleta on 02-08-2024 Chloride [Moles/Vol] Chloride [Moles/vol ume] in Serum or Plasma 98-107 [facility] Complete Blood Count Auto Di ffon 02-08-2024 Basophils (Bld) [#/Vol] 0.0 10*3/uL Normal 0.0-0.2 [facility] Comment on above: Performed By: #### B MP, FE PRO, B12, ESR, CRP, CBC #### [address] Basophils/100 WBC (Bld) 0.4 % Normal . [facility] Comment on above: Performed By: #### B MP, FE PRO, B12, ESR, CRP, CBC #### [address] Eosinophils (Bld) [#/Vol] 0.2 10*3/uL Normal 0.0-0.45 [facility] Comment on above: Performed By: #### B MP, FE PRO, B12, ESR, CRP, CBC #### [address] Eosinophils/100 WBC (Bld) 2.4 % Normal . [facility] Comment on above: Performed By: #### B MP, FE PRO, B12, ESR, CRP, CBC #### [address] Erythrocyte distribution width (RBC) [Ratio] 15.2 % High 12.0-14.8 [facility] Comment on above: Performed By: #### B MP, FE PRO, B12, ESR, CRP, CBC #### [address] Hematocrit (Bld) [Volume fraction] 23.1 % Low 38.8-50.0 [facility] Comment on above: Performed By: #### B MP, FE PRO, B12, ESR, CRP, CBC #### [address] Hemoglobin (Bld) [Mass/Vol] 7.8 g/dL Low 13.0-17.0 [facility] Comment on above: Performed By: #### B MP, FE PRO, B12, ESR, CRP, CBC #### [address] Lymphocytes (Bld) [#/Vol] 0.7 10*3/uL Low 1.00-4.8 [facility] Comment on above: Performed By: #### B MP, FE PRO, B12, ESR, CRP, CBC #### [address] Lymphocytes/100 WBC (Bld) 7.0 % Normal . [facility] Comment on above: Performed By: #### B MP, FE PRO, B12, ESR, CRP, CBC #### [address] MCH (RBC) [Entitic mass] 26.8 pg Low 27.5-35.2 [facility] Comment on above: Performed By: #### B MP, FE PRO, B12, ESR, CRP, CBC #### [address] MCV (RBC) [Entitic vol] 79.5 fL Low 83.5-101 [facility] Comment on above: Performed By: #### B MP, FE PRO, B12, ESR, CRP, CBC #### [address] Mean Corpuscular HGB Conc 33.7 g/dL Normal 32.5-35.6 [facility] Comment on above: Performed By: #### B MP, FE PRO, B12, ESR, CRP, CBC #### [address] Monocytes (Bld) [#/Vol] 0.5 10*3/uL Normal 0.0-0.8 [facility] Comment on above: Performed By: #### B MP, FE PRO, B12, ESR, CRP, CBC #### [address] Monocytes/100 WBC (Bld) 4.8 % Normal . [facility] Comment on above: Performed By: #### B MP, FE PRO, B12, ESR, CRP, CBC #### [address] Neutrophils (Bld) [#/Vol] 9.0 10*3/uL High 1.8-7.7 [facility] Comment on above: Performed By: #### B MP, FE PRO, B12, ESR, CRP, CBC #### [address] Neutrophils/100 WBC (Bld) 85.4 % Normal . [facility] Comment on above: Performed By: #### B MP, FE PRO, B12, ESR, CRP, CBC #### [address] NRBC% 0.0 /100{WBC} Normal 0-0.5 [facility] Comment on above: Performed By: #### B MP, FE PRO, B12, ESR, CRP, CBC #### [address] Platelet mean volume (Bld) [Entitic vol] 6.7 fL Normal 6.6-10.1 [facility] Comment on above: Performed By: #### B MP, FE PRO, B12, ESR, CRP, CBC #### [address] Platelets (Bld) [#/Vol] 220 10*3/uL Normal 150-450 [facility] Comment on above: Performed By: #### B MP, FE PRO, B12, ESR, CRP, CBC #### [address] RBC (Bld) [#/Vol] 2.91 10*6/uL Low 3.90-5.60 [facility] Comment on above: Performed By: #### B MP, FE PRO, B12, ESR, CRP, CBC #### [address] WBC (Bld) [#/Vol] 10.5 10*3/uL Normal 4.1-10.5 [facility] Comment on above: Performed By: #### B MP, FE PRO, B12, ESR, CRP, CBC #### [address] Creatinine [Mass/volume] in Serum or PlasmaOrdered By: Nina River on 02-08-2024 Creatinine [Mass/Vol] Creatinine [Mass/v olume] in Serum or Plasma High 0.70-1.30 [facility] Eosinophils Auto (Bld) [#/Vo l]Ordered By: Nina River on 02-08-2024 Eosinophils (Bld) [#/Vol] Automated eosinophil count 0.0-0.45 [facility] Eosinophils/100 WBC Auto (Bl d)Ordered By: Ninastefan River on 02-08-2024 Eosinophils/100 WBC (Bld) Automated eosinophil % . [facility] Erythrocyte Sedimentation Ra мария 02-08-2024 ESR (Bld) [Velocity] 44 mm/h High 0-19 [facility] Comment on above: Result Comment: PERF ORMED BY: [place] [address] PATHOLOGIST [employer] FARRAH PAUL M.D. Performed By: #### B MP, FE PRO, B12, ESR, CRP, CBC #### [address] Erythrocyte distribution wid th Auto (RBC) [Ratio]Ordered By: Nina River on 02-08-2024 Erythrocyte distribution width (RBC) [Ratio] Erythrocyte distribution width [Ratio] by Automated count High 12.0-14.8 [facility] Erythrocyte sedimentation ra te by Photometric methodOrdered By: Nina River on 02-08-2024 ESR Photometric method (Bld) [Velocity] Erythrocyte sedimentation rate by Photometric method High 0-19 [facility] FE PROon 02-08-2024 % Iron Saturation Not performed Normal 20-50 [facility] Comment on above: Performed By: #### B MP, FE PRO, B12, ESR, CRP, CBC #### [facility] [address] [place] [address] Ferritin [Mass/Vol] 422.9 ng/mL High 23.9-336.2 [facility] Comment on above: Performed By: #### B MP, FE PRO, B12, ESR, CRP, CBC #### [facility] [address] [place] [address] Iron [Mass/Vol] ug/dL Low 50-212 [facility] Comment on above: Performed By: #### B MP, FE PRO, B12, ESR, CRP, CBC #### [facility] [address] [place] [address] [place] Total Iron Binding Capacity 175 ug/dL Low 255-450 [facility] Comment on above: Performed By: #### B MP, FE PRO, B12, ESR, CRP, CBC #### [facility] [address] [place] [place] [id number] [place] Transferrin [Mass/Vol] 125 mg/dL Low 203-362 [facility] Comment on above: Performed By: #### B MP, FE PRO, B12, ESR, CRP, CBC #### [facility] [address] [place] [address] [place] Ferritin [Mass/volume] in Se rum or PlasmaOrdered By: Nina River on 02-08-2024 Ferritin [Mass/Vol] Ferritin [Mass/volum e] in Serum or Plasma High 23.9-336.2 [facility] Glucose [Mass/volume] in Ser um or PlasmaOrdered By: Nina River on 02-08-2024 Glucose [Mass/Vol] Glucose [Mass/volume ] in Serum or Plasma High 70-100 [facility] Comment on above: ADA recommended refe rence rangeRandom Glucose Reference Range is dependent on time and content of last meal. Glucose of more than 200 mg/dL in a nonstressed, ambulatory subject supports the diagnosis of Diabetes Mellitus. Hematocrit Auto (Bld) [Volum e fraction]Ordered By: Nina River on 02-08-2024 Hematocrit (Bld) [Volume fraction] Hematocrit [Volume Fraction] of Blood by Automated count Low 38.8-50.0 [facility] Hemoglobin [Mass/volume] in BloodOrdered By: Nina River on 02-08-2024 Hemoglobin (Bld) [Mass/Vol] Hemoglobin [Mass/volume] in Blood Low 13.0-17.0 [facility] Iron [Mass/volume] in Serum or PlasmaOrdered By: Nina River on 02-08-2024 Iron [Mass/Vol] Iron [Mass/volume] i n Serum or Plasma Low 50-212 [facility] Leukocytes [#/volume] correc shreya for nucleated erythrocytes in Blood by Automated counOrdered By: Nina Aleta on 02-08-2024 WBC corrected for nucl RBC Auto (Bld) [#/Vol] Leukocytes [#/volume] corrected for nucleated erythrocytes in Blood by Automated coun 4.1-10.5 [facility] Lymphocytes Auto (Bld) [#/Vo l]Ordered By: Nina Aleta on 02-08-2024 Lymphocytes (Bld) [#/Vol] Lymphocytes [#/volume] in Blood by Automated count Low 1.00-4.8 [facility] Lymphocytes/100 WBC Auto (Bl d)Ordered By: Nina Aleta on 02-08-2024 Lymphocytes/100 WBC (Bld) Lymphocytes/100 leukocytes in Blood by Automated count . [facility] MCH Auto (RBC) [Entitic mass ]Ordered By: Nina Aleta on 02-08-2024 MCH (RBC) [Entitic mass] MCH [Entitic mass] by Automated count Low 27.5-35.2 [facility] MCHC Auto (RBC) [Mass/Vol]Or dered By: Nina Aleta on 02-08-2024 MCHC (RBC) [Mass/Vol] MCHC [Mass/volume] by Automated count 32.5-35.6 [facility] MCV Auto (RBC) [Entitic vol] Ordered By: Nina Aelta on 02-08-2024 MCV (RBC) [Entitic vol] MCV [Entitic volume] by Automated count Low 83.5-101 [facility] Monocytes Auto (Bld) [#/Vol] Ordered By: Nina Aleta on 02-08-2024 Monocytes (Bld) [#/Vol] Automated blood monocyte count 0.0-0.8 [facility] Monocytes/100 WBC Auto (Bld) Ordered By: Nina Aleta on 02-08-2024 Monocytes/100 WBC (Bld) Automated monocyte % . [facility] Neutrophils Auto (Bld) [#/Vo l]Ordered By: Nina Aleta on 02-08-2024 Neutrophils (Bld) [#/Vol] Neutrophils [#/volume] in Blood by Automated count High 1.8-7.7 [facility] Neutrophils/100 WBC Auto (Bl d)Ordered By: Nina River on 02-08-2024 Neutrophils/100 WBC (Bld) Automated neutrophil % . [facility] No Panel InformationOrdered By: Nina River on 02-08-2024 Estimated GFR (CKD-EPI) 48.779 mL/Min [facility] Creatinine Clearance (Chem N/A [facility] Nucleated erythrocytes [Pres ence] in Blood by Automated countOrdered By: Nina River on 02-08-2024 Nucleated RBC Auto Ql (Bld) Nucleated erythrocytes [Presence] in Blood by Automated count 0-0.5 [facility] Platelet mean volume Auto (B ld) [Entitic vol]Ordered By: Nina River on 02-08-2024 Platelet mean volume (Bld) [Entitic vol] Platelet mean volume [Entitic volume] in Blood by Automated count 6.6-10.1 [facility] Platelets Auto (Bld) [#/Vol] Ordered By: Nina River on 02-08-2024 Platelets (Bld) [#/Vol] Platelets [#/volume] in Blood by Automated count 150-450 [facility] Potassium [Moles/volume] in Serum or PlasmaOrdered By: Nina River on 02-08-2024 Potassium [Moles/Vol] Potassium [Moles/v olume] in Serum or Plasma 3.5-5.1 [facility] RBC Auto (Bld) [#/Vol]Ordere d By: Nina River on 02-08-2024 RBC (Bld) [#/Vol] Erythrocytes [#/volu me] in Blood by Automated count Low 3.90-5.60 [facility] Serum or plasma anion gap de terminationOrdered By: Nina River on 02-08-2024 Anion gap [Moles/Vol] Serum or plasma an ion gap determination 6.0-15.0 [facility] Serum or plasma iron binding capacity measurement (mass/volume)Ordered By: Nina River on 02-08-2024 Iron binding capacity [Mass/Vol] Iron binding capacity [Mass/volume] in Serum or Plasma Low 255-450 [facility] Serum or plasma iron saturat ion measurement (mass fraction)Ordered By: Nina River on 02-08-2024 Iron saturation [Mass fraction] Iron saturation [Mass Fraction] in Serum or Plasma [facility] Comment on above: Test not performed Sodium [Moles/volume] in Ser um or PlasmaOrdered By: Nina River on 02-08-2024 Sodium [Moles/Vol] Sodium [Moles/volume ] in Serum or Plasma 136-145 [facility] Transferrin [Mass/volume] in Serum or PlasmaOrdered By: Nina River on 02-08-2024 Transferrin [Mass/Vol] Transferrin [Mass/volume] in Serum or Plasma Low 203-362 [facility] Urea nitrogen [Mass/volume] in Serum or PlasmaOrdered By: Nina River on 02-08-2024 Urea nitrogen [Mass/Vol] Urea nitrogen [Mass/volume] in Serum or Plasma 7-25 [facility] Vitamin B12on 02-08-2024 Cobalamin (Vitamin B12) [Mass/Vol] 701 pg/mL Normal 180-914 [facility] Comment on above: Result Comment: PERF ORMED BY: [place] [address] PATHOLOGIST [employer] FARRAH PAUL M.D. Performed By: #### B MP, FE PRO, B12, ESR, CRP, CBC #### [address] Vitamin B12 ser/plasOrdered By: Nina River on 02-08-2024 Cobalamin (Vitamin B12) [Mass/Vol] Vitamin B12 ser/plas 180-914 [facility] WBC Auto (Bld) [#/Vol]Ordere d By: Nina Aleta on 02-08-2024 WBC (Bld) [#/Vol] Leukocytes [#/volume ] in Blood by Automated count 4.1-10.5 [facility] Reminderson 11-15-2023 Reminders Reminders From: Ama Arteaga To: [place] - Recalls [place]; Sent: 11/15/2023 16:29:55 EDT Show up: 08/27/2024 16:29:00 EDT Subject: Cysto/UD Due Date/Time: 09/18/2024 16:29:00 EDT Reminder/Recall Patient is due in October 2024 for 1 year cysto/UD w [facility] sounds Normal [facility] BONE MARROWon 10-11-2023 BONE MARROW SEE SEPARATE REPORT Normal [facility] Comment on above: Result Comment: REVI EWED BY SOLEDAD HUYNH M.D. Performed By: #### E XHR, 20721-6, MDSDF #### [facility] ([id number]) [address] [place] [id number] #### 94624-4, BONMAR #### [facility] ([id number]) [address] [place] [address] CBC AND AUTO DIFFon 10-11-19 24 ABSOLUTE BASOPHIL 0.0 X10E9/L Normal 0.0-0.2 [facility] Comment on above: Performed By: #### P INR, CBCA #### [facility] ([id number]) [address] [place] [id number] ABSOLUTE NEUTROPHIL 8.0 X10E9/L High 1.5-6.6 [facility] Comment on above: Performed By: #### P INR, CBCA #### [facility] ([id number]) [address] [place] [id number] Basophils/100 WBC (Bld) 0.3 % Normal [facility] Comment on above: Performed By: #### P INR, CBCA #### [facility] ([id number]) [address] [place] [id number] Eosinophils (Bld) [#/Vol] 0.5 10*3/uL High 0.0-0.4 [facility] Comment on above: Performed By: #### P INR, CBCA #### [facility] ([id number]) [address] [place] [phone] Eosinophils/100 WBC (Bld) 4.4 % Normal [facility] Comment on above: Performed By: #### P INR, CBCA #### [facility] ([id number]) [address] [place] [phone] Erythrocyte distribution width (RBC) [Ratio] 16.8 % High 11.5-15.0 [facility] Comment on above: Performed By: #### P INR, CBCA #### [facility] ([id number]) [address] [place] [address] Hematocrit (Bld) [Volume fraction] 20.1 % Low 39-49 [facility] Comment on above: Performed By: #### P INR, CBCA #### [facility] ([id number]) [address] [place] [address] 19600 Hemoglobin (Bld) [Mass/Vol] 6.6 g/dL Critically low 13.0-17.0 [facility] Comment on above: Performed By: #### P INR, CBCA #### [facility] ([id number]) [address] [place] [address] 27928 Lymphocytes (Bld) [#/Vol] 1.4 10*3/uL Normal 1.0-3.5 [facility] Comment on above: Performed By: #### P INR, CBCA #### [facility] ([id number]) [address] [place] [address] 40574 Lymphocytes/100 WBC (Bld) 13.0 % Normal [facility] Comment on above: Performed By: #### P INR, CBCA #### [facility] ([id number]) [address] [place] [address] 38908 MCH (RBC) [Entitic mass] 24.7 pg Low 27-34 [facility] Comment on above: Performed By: #### P INR, CBCA #### [facility] ([id number]) [address] [place] [address] 48234 MCHC (RBC) [Mass/Vol] 32.6 g/dL Normal 32-36 [facility] Comment on above: Performed By: #### P INR, CBCA #### [facility] ([id number]) [address] [place] [address] 18297 MCV (RBC) [Entitic vol] 76 fL Low 80-100 [facility] Comment on above: Performed By: #### P INR, CBCA #### [facility] ([id number]) [address] [place] [address] 72452 Monocytes (Bld) [#/Vol] 0.9 10*3/uL Normal 0-0.9 [facility] Comment on above: Performed By: #### P INR, CBCA #### [facility] ([id number]) [address] [place] [address] 01653 Monocytes/100 WBC (Bld) 8.2 % Normal [facility] Comment on above: Performed By: #### P INR, CBCA #### [facility] ([id number]) [address] [place] [address] 74517 Neutrophils/100 WBC (Bld) 74.1 % Normal [facility] Comment on above: Performed By: #### P INR, CBCA #### [facility] ([id number]) [address] [place] [address] 30554 Platelet mean volume (Bld) [Entitic vol] 7.0 fL Normal 7-12 [facility] Comment on above: Performed By: #### P INR, CBCA #### [facility] ([id number]) [address] [place] [address] 34653 Platelets (Bld) [#/Vol] 371 10*3/uL Normal 150-450 [facility] Comment on above: Performed By: #### P INR, CBCA #### [facility] ([id number]) [address] [place] [address] RBC COUNT 2.66 X10E12/L Low 4.10-5.70 [facility] Comment on above: Performed By: #### P INR, CBCA #### [facility] ([id number]) [address] [place] [address] 16116 WBC (Bld) [#/Vol] 10.8 10*3/uL Normal 4.0-11.0 [facility] Comment on above: Performed By: #### P INR, CBCA #### [facility] ([id number]) [address] [place] [address] 47223 DNA and RNA Extract and Hold on 10-11-2023 DNA and RNA Extract and Hold SEE COMMENTS 10/14/2023 08:52 AM Normal [facility] Comment on above: Result Comment: NOTE Test Result Flag Unit RefValue -- DNA and RNA Extract and Hold Specimen Type EDTA BONE MARROW DNA/RNA Extract and Hold Result see method DNA/RNA Extraction Performed ADDITIONAL INFORMATION DNA and total RNA were extracted from the sample and will be stored cryopreserved for 1 year from the extraction date. To request specific molecular test(s) from the [facility]'s test catalog, please contact [facility] at [phone]. Method summary: DNA and RNA were extracted from the received specimen and stored at -80 C. This test was developed and its performance characteristics determined by [facility] in a manner consistent with CLIA requirements. This test has not been cleared or approved by the U.S. Food and Drug Administration. Test Performed by: [address] [address] Wind Turbine Service Technician: Rosie Ruby Ph.D.; CLIA# [id number] Performed By: #### E XHR, 02736-1, MDSDF #### [facility] ([id number]) [address] [place] [address] 18642 #### 77243-2, PENNY #### [facility] ([id number]) [address], [address] [place] [address] Flow cytometry specialist re view Álvaro (Unsp spec) [Interp]on 10-11-2023 FLOW CYTOMETRY BM SEE SEPARATE REPORT, REVIEWED BY PATHOLOGIST [facility] Comment on above: Performed By: #### Luciana XHR, 49193-3, MDSDF #### [facility] ([id number]) [address] [place] [address] 94262 #### 09140-5, PENNY #### [facility] ([id number]) [address], [address] [place] [address] IR BX AND ASP BONE MARROW SN [...] on the left iliac bone using an Qmerce powered bone marrow biopsy system. The bone [...] performed under CT guidance. Finalized by Khadar Gurerero MD on 10/11/2023 9:49 AM Normal [facility] Karyotype Nom (BM)on 024 CHROMOSOME BONE MARROW SEE COMMENTS 10/19/2023 02:37 PM Normal [facility] Comment on above: Result Comment: NOTE Test Result Flag Unit RefValue -- Chromosomes, Hematologic, BM Result Summary Normal Interpretation See Note No clonal abnormality was apparent. Since this conventional chromosome study was successful, MDS, Diag FISH was cancelled per lab protocol (Elder Christie et al., [facility], 146:86-94, 2016; [facility] MDS Algorithm: www.[email or web address]/it-mmfiles/Myelodysplastic_Syndrome_G uideline_to_Diagnosis_and_Follow-up.pdf). Result 46,XY[20] Reason for Referral leukocytosis [...] testing process was performed at [facility] site [id number]. Released By Tanvi Loo M.D. Test Performed by: [facility] [place] [address] Wind Turbine Service Technician: Rosie Ruby Ph.D.; CLIA# [id number] Performed By: #### E XHR, 81737-3, MDSDF #### [facility] ([id number]) [address] [place] [address] 20270 #### 32143-5, [facility] #### [facility] ([id number]) [address] [place] [address], [address] [place] [address] MYELODYSPLASTIC SYNDROME ( S),DIAGNOSTIC FISH, [facility] 10-11-2023 MYELODYSPLASTIC SYNDROME (MDS),DIAGNOSTIC FISH, VARIES SEE COMMENTS 10/22/2023 08:45 AM Normal [facility] Comment on above: Result Comment: NOTE Test Result Flag Unit RefValue -- MDS, Diagnostic FISH Interpretation TNP MDS, Diagnostic FISH was cancelled on 10/22/2023 at 08:41; Based on other test results additional testing not required. MDS FISH order was cancelled per laboratory protocol (Elder et al., Amer J Clin Pathol 146:86-94, 2016; [facility] MDS Algorithm: www.[facility].com/it-mmfiles/Myelodysplastic_S yndrome_Guideline_ to_Diagnosis_and_Follow-up.pdf) with Probes -RPN1(G)/MECOM(R), -TP53(R)/D17Z1(G), -D8Z2(G)/MYC(R), -D37M904(R)/20QTER(G), -P3Q693(G)/EGR1(R), -D7Z1(G)/Q2P664(R) Test Performed by: [place] [address] [employer] T[employer]ine Service Technician: Rosie Ruby Ph.D.; CLIA# [id number] Performed By: #### E XHR, 50170-8, MDSDF #### [facility] ([id number]) [address] [place] [address] #### 45604-3, BONWARREN #### [facility] ([id number]) [address] [place] [address], [address] [place] [address] PROTIME AND INRon 10-11-2023 INR Coag (PPP) [Relative time] 1.3 {INR} High 0.8-1.1 [facility] Comment on above: Performed By: #### P INR, CBCA #### [facility] ([id number]) [address] [place] [address] 35444 PT Coag (PPP) [Time] 14.9 s High 9.8-13.2 [facility] Comment on above: Result Comment: NEW REFERENCE RANGE Performed By: #### P INR, CBCA #### [facility] ([id number]) [address] [place] [address] 50675 Surgical Pathologyon 024 Surgical Pathology Normal [facility] Comment on above: Result Comment: [facility] [address] [place] [address] Bone Marrow Consultation Patient Name:GANGA STINSON:1960 (Age: 63)Gender:MTaken:10/11/2023eported:10/14/2023hysician(s):Nina Aleta ([phone])Copy To:Khadar Guerrero M.D. Rec. #:[id number]: #[id number] Final Pathologic Diagnosis Bone marrow, aspiration and [...] acquisition are identified on maturing myeloid cells. [place] on the lymphoid population demonstrates a mixed population of phenotypically unremarkable T-cells, polyclonal B-cells, and natural killer cells, without a detectable monoclonal population. No monotypic plasma cell population is identified. Immunophenotyping antibodies tested: CD2, CD3, CD4, CD5, CD7, CD8, CD10, CD13, CD16, CD19, CD20 , CD23, CD33, CD34, CD38, CD43, CD45, CD56, CD117, CD123, CD138, Mccormick, Lambda. Cytoplasmic Mccormick/CD38, Cytoplasmic Lambda/CD38, and intrinsic VS38 Immunophenotyping Comment: Immunophenotyping has been used in this diagnostic evaluation. This test was developed and its performance characteristics determined by the [facility]. It has not been [...] Out Soledad Huynh MD Interpretation performed at [facility] [facility], [address] [place] [address], License number: [id number]. Clinical History Leukocytosis. Gross Description 1. Received in B plus fixative labeled ALLOWAY, clot is a friable portion of hemorrhagic material, 2.2 x 1.0 x 0.4 cm in aggregate. The specimen is submitted entirely in a single cassette. (1, ns, [id number], m1) LADONNA 2. Received in B plus fixative labeled ALLOWAY, core is a pale osborne-pardo cylindrical segment of bone with adherent hemorrhagic material, 1.0 cm in length and 0.2 cm in diameter. The specimen is submitted entirely in a single cassette following a period of decalcification in Rapid-Delbert Immuno. (1, ns, [id number], m1) LADONNA Comment: Per epic IR procedure [...] (7-23%) 7.5 l (more content not included)... Consent for Procedure/Surger yon 09-22-2023 Consent for Procedure/Surgery [id number]#1.00TIFF Normal [facility] Retail - Clinical Noteon Retail - Clinical Note [id number]#1.00TIFF Normal [facility] Martín 07-08-2023 L Specimen: [id number] Received: 07/12/23 Status: ROSIO Re Num: [id number] Spec Type: Surgical Subm Dr: Bubba Bahena DPM, MS Tissues: A Debridement-Skin/Other Than Skin (LEFT FIBULA) B Debridement-Skin/Other Than Skin (LEFT TALUS) Procedures: HE/2, Gross/Micro L3/2 Age/ Patient Sex Location Account Attending Physician Ganga Stinson 63/M LABELL [id number] Bubba Bahena DPM, MS SPEC NUM: [id number] RECD: 07/12/23 STATUS: [facility] NUM: [id number] NAYLA: 07/08/[address]: Bubba Bahena DPM, MS ENTERED: 07/12/[address] [facility] DR: Titi,Lab SPEC TYPE: Surgical DEPT: RAFI [...] pressure ulcer of left heel?path pending Specimen: [id number] Received: 07/12/23 Status: ROSIO [place] Num: [id number] Spec Type: Surgical Subm Dr: Bubba Bahena,DPM, MS Tissues: A Debridement-Skin/Other Than Skin (LEFT FIBULA) B Debridement-Skin/Other Than Skin (LEFT TALUS) Procedures: HE/2, Gross/Micro L3/2 Patient: RubenGanga [id number] (Continued) Specimen: [id number] Received: 07/12/23 (Continued) Signed (signature on file) Anh Smith MD 07/14/23 1022 Specimen: [id number] Received: 07/12/23 Status: ROSIO [place] Num: [id number] Spec Type: Surgical Subm Dr: Bubba Bahena,DPSam, MS Tissues: A Debridement-Skin/Other Than Skin (LEFT FIBULA) B Debridement-Skin/Other Than Skin (LEFT TALUS) Procedures: HE/Brianne, Gross/Micro L3/2 Patient: Ganga Stinson [id number] (Continued) Specimen: [id number] Received: 07/12/23 (Continued) CPT Codes 68589 x 2 70533 x 2 Specimen: [id number] Received: 07/12/23 Status: ROSIO [place] Num: [id number] Spec Type: Surgical Subm Dr: Bubba Bahena,DPM, MS Tissues: A Debridement-Skin/Other Than Skin (LEFT FIBULA) B Debridement-Skin/Other Than Skin (LEFT TALUS) Procedures: HE/Brianne, Gianna/Margo L3/2 Patient: Ganga Stinson [id number] (Continued) Signed (signature on file) Anh Smith MD 07/14/23 1022 Normal [facility] Consent for Procedure/Surger yon 06-14-2023 Consent for Procedure/Surgery [id number]#1.00TIFF Normal [facility] Aerobic Cultureon 06-04-2023 Aerobic Culture Comment left fibular bone biopsy ORGANISM: Strep dysgalactiae (O:STRDYS) Quantity of Growth Heavy Growth Comment left fibular bone biopsy ORGANISM: Prevotella disiens (O:PREDIS) Comments Sent to [facility] for Sensitivity Testing Quantity of Growth Light Growth Please see scanned report located in the EMR under the Diagnostics tab -> Scanned Lab Reports -> Laboratory. Comment left fibular bone biopsy Gram Stain Result No Bacteria Seen Rare White Blood Cells PERFORMED BY: [place] [address] PATHOLOGIST CHIP SILO TENDER FARRAH PAUL M.D. Normal [facility] Comment on above: Performed By: #### A ERC #### [address] Capillary blood glucose linda urement by glucometer (mass/volume)Ordered By: Jonathan Moffett on 06-04-2023 Glucose [Mass/Vol] 134 mg/dL Normal [facility] Comment on above: Random Glucose Refer ence Range is dependent on time and content of last meal. Glucose of more than 200 mg/dL in a nonstressed, ambulatory subject supports the diagnosis of Diabetes Mellitus. Result Comment: [place] Glucose Reference Range is dependent on time and content of last meal. Glucose of more than 200 mg/dL in a nonstressed, ambulatory subject supports the diagnosis of Diabetes Mellitus. PERFORMED BY: [facility] [address] [place] [address] PATHOLOGIST CHIP SILO TENDER FARRAH PAUL M.D. Performed By: #### G BHARATI #### Point of Care testing , Gram stain for investigation of transfusion reactionOrdered By: Jonathan Moffett on 06-04-2023 Microscopic observation Gram stain Nom (Unsp spec) Jorgelldaniela alejandre [facility] Reminderson 04-30-2023 Reminders - From: Ama Arteaga To: EU - Recalls Allen; Cc: Ama Arteaga; Sent: 01/15/2023 08:12:10 EDT Show up: 04/29/2023 08:12:00 EST Subject: Cysto/UD Due Date/Time: 06/07/2023 08:11:00 EDT Reminder/Recall Patient needs 6 month cysto/UD in June 2023 Spoke to pt, sched for 07/12/23 at [facility].LG Patient will be due in Dec 2023.LG Normal [facility] Ambulatory Visit Summaryon 1 Ambulatory Visit Summary GANGA STINSON :1960 Visit Date:01/19/2023 Ambulatory Visit Instructions Your Care Team Attending Physician - ALLEN NAZARIO, Jovanny Christie Primary Care Physician - FIDEL ABBOTT MD This Is Your Medications List [facility] Prescription (IRON 65MG TAB) amlodipine (amLODIPine 10 [...] you for choosing us for your care. [facility] Operative Reporton Operative Report [id number]#1.00TIFF [facility] Pre-Certification Formon Pre-Certification Form [id number]#1.00TIFF [facility] Insurance Correspondenceon 0 12-25-2022 Insurance Correspondence [id number]#1.00CD:127 [facility] Consent for Procedure/Surger yon 12-22-2022 Consent for Procedure/Surgery [id number]#1.00CD:127 [facility] Cult,Urineon 09-26-2022 Cult,Urine Specimen Description .CLEAN CATCH URINE Culture NO SIGNIFICANT GROWTH Report Status FINAL 09/26/2022 [facility] Comment on above: Performed By: #### C MPX, CDP #### [facility] [address] [place] [address] Wind Turbine Service Technician: Khadar Tang MD US RENAL COMPLETEon 09-20-19 [...] Alexander Mcclain DO 09/19/22 Final result Normal [facility] Unremarkable ultraso und of the kidneys and urinary bladder. [facility] EXAMINATION: RETROPERITONEAL ULTRASOUND OF THE KIDNEYS [...] the bladder. No significant post void residual. [facility] Alexander Mcclain DO - 09/19/2022 EXAMINATION: [...] ultrasound of the kidneys and urinary bladder. [facility] US RENAL COMPLETEOrdered By: Alexander Mcclain on 09-19-2022 [facility] Work Phone: Basic Metabolic Profon 09-18 Anion gap [Moles/Vol] 10 mmol/L Normal 9-17 [facility] Comment on above: Performed By: #### B MP #### [facility] [address] [place] [address] Wind Turbine Service Technician: Khadar Tang MD BUN/CRE Ratio 26 High 9-20 [facility] Comment on above: Performed By: #### B MP #### [facility] [address] [place] [address] Wind Turbine Service Technician: Khadar Tang MD Calcium [Mass/Vol] 9.3 mg/dL Normal 8.6-10.4 [facility] Comment on above: Performed By: #### B MP #### [facility] [address] [place], [place] [address] Wind Turbine Service Technician: Khadar Tang MD Chloride [Moles/Vol] 105 mmol/L Normal 98-107 [facility] Comment on above: Performed By: #### B MP #### [facility] [address] [place], [place] 6[address] Wind Turbine Service Technician: Khadar Tang MD CO2 [Moles/Vol] 22 mmol/L Normal 20-31 [facility] Comment on above: Performed By: #### B MP #### [facility] [address] [place], [place] [address] Wind Turbine Service Technician: Khadar Tang MD Creatinine [Mass/Vol] 1.25 mg/dL High 0.70-1.20 [facility] Comment on above: Performed By: #### B MP #### [facility] [address] [place] [address] Wind Turbine Service Technician: Khadar Tang MD GFR/1.73 sq M.predicted among non-blacks MDRD (S/P/Bld) [Vol rate/Area] mL/min/{1.73_m2} Normal >60 [facility] Comment on above: Result Comment: These results [...] secretion. Performed By: #### B MP #### [facility] [address] [place], [place] [address] Wind Turbine Service Technician: Khadar Tang MD Glucose [Mass/Vol] 186 mg/dL High 70-99 [facility] Comment on above: Performed By: #### B MP #### [facility] [address] [place], [place] [address] Wind Turbine Service Technician: Khadar Tang MD Potassium [Moles/Vol] 4.1 mmol/L Normal 3.7-5.3 [facility] Comment on above: Performed By: #### B MP #### [facility] [address] [place], [place] [address] Wind Turbine Service Technician: Khadar Tang MD Sodium [Moles/Vol] 137 mmol/L Normal 135-144 [facility] Comment on above: Performed By: #### B MP #### [facility] [address] [place], [place] [address] Wind Turbine Service Technician: Khadar Tang MD Urea nitrogen [Mass/Vol] 32 mg/dL High 8-23 [facility] Comment on above: Performed By: #### B MP #### [facility] [address] [place], [place] 0[address] Wind Turbine Service Technician: Khadar Tang MD RENAL COMPLETEon 09-19-19 Radiology Study observation (narrative) [facility] Hemoglobin A1Con 2022 Glucose [Mass/Vol] 171 mg/dL Normal [facility] Comment on above: Result Comment: The ADA and AACC recommend providing the estimated average glucose result to permit better patient understanding of their HBA1c result. Performed By: #### G LYHGB #### [facility] [address] [place] [address] Wind Turbine Service Technician: Jeff Casanova MD HbA1c (Bld) [Mass fraction] 7.6 % High 4.0-6.0 [facility] Comment on above: Performed By: #### G LYHGB #### [facility] [address] [place] [address] Wind Turbine Service Technician: Jeff Casanova MD OPERATIVE REPORTon 3 OPERATIVE REPORT [address] [address] OPERATIVE REPORT PATIENT NAME: GANGA STINSON : 1960 MED REC NO: [id number] ROOM: ACCOUNT NO: [id number] ADMIT DATE: 2022 PROVIDER: Angeles Nagy DATE OF PROCEDURE: 2022 SURGEON: Dr. Angeles Nagy. LOADING MACHINE TOOL SETTER: None. PREOPERATIVE DIAGNOSES: 1. Neurogenic bladder. 2. Urethral stricture. POSTOPERATIVE DIAGNOSES: 1. Neurogenic bladder. 2. Urethral stricture. PROCEDURE PERFORMED: Direct visual internal urethrotomy. ANESTHESIA: General. COMPLICATIONS: None. ESTIMATED BLOOD LOSS: Minimal. SPECIMENS: None. PROSTHESIS: An 18-Maltese Rowe catheter. DISPOSITION: Stable. FINDINGS: Bulbous urethral stricture. 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 DESCRIPTION OF PROCEDURE: The patient was taken back to the operating room after informed consent including all risks, benefits, and alternatives were obtained. The patient was transferred from the [facility] onto the operating room table, where he was induced under general anesthesia and given IV Ancef for preoperative antibiotic prophylaxis. To begin the case, he was prepped and draped in the normal sterile fashion and placed in dorsal lithotomy. He had a 21-Maltese sheath with a 30-degree lens passed through [...] then removed the scope and inserted an 18-Maltese Rowe catheter with ease. He was then awoken from general anesthesia, transferred to the [facility], and taken to the PACU in satisfactory condition by Nursing and Anesthesia Teams. PLAN: The patient will be discharged home per PACU criterion and follow up with me in one week for Rowe catheter removal. ANGELES LILO TZ/V_CGGIS_I Doc#: [id number] CC: Normal [facility] Basic Metabolic Panelon Anion gap [Moles/Vol] 10 mmol/L 9 - 17 mmol/L [place] Calcium [Mass/Vol] 8.8 mg/dL 8.6 - 10. 4 mg/dL [facility] Chloride [Moles/Vol] 106 mmol/L 98 - 10 7 mmol/L [facility] CO2 [Moles/Vol] 24 mmol/L 20 - 31 mmol/L [facility] Creatinine [Mass/Vol] 1.3 mg/dL High 0.70 - 1.20 mg/dL [facility] GFR/1.73 sq M.predicted MDRD (S/P/Bld) [Vol rate/Area] - [facility] Comment on above: These results are not [...] 250 mg/dL High 70 - 99 mg/dL [facility] Interpretation and review of laboratory results Abnormal [facility] Potassium [Moles/Vol] 4.0 mmol/L 3.7 - 5.3 mmol/L [facility] Sodium [Moles/Vol] 140 mmol/L 135 - 144 mmol/L [facility] Urea nitrogen [Mass/Vol] 29 mg/dL High 8 - 23 mg/dL [facility] Urea nitrogen/Creatinine (Bld) [Mass ratio] 22 High 9 - [address] [facility] Basic Metabolic Profon 07-02 Anion gap [Moles/Vol] 10 mmol/L Normal 9-17 [facility] Comment on above: Performed By: #### C MPX, CDP #### [facility] [address] [place], [place] [address] Wind Turbine Service Technician: Khadar Tang MD BUN/CRE Ratio 22 High 9-20 [facility] Comment on above: Performed By: #### C MPX, CDP #### [facility] [address] [place], [place] [address] Wind Turbine Service Technician: Khadar Tang MD Calcium [Mass/Vol] 8.8 mg/dL Normal 8.6-10.4 [facility] Comment on above: Performed By: #### C MPX, CDP #### [facility] [address] [place], [place] [id number] [employer] Technician: Khadar Tang MD Chloride [Moles/Vol] 106 mmol/L Normal 98-107 [facility] Comment on above: Performed By: #### C MPX, CDP #### [facility] [address] [place], [place] [id number] [employer] Technician: Khadar Tang MD CO2 [Moles/Vol] 24 mmol/L Normal 20-31 [facility] Comment on above: Performed By: #### C MPX, CDP #### [facility] [address] [place], [place] 5688183 [employer] Technician: Khadar Tang MD Creatinine [Mass/Vol] 1.30 mg/dL High 0.70-1.20 [facility] Comment on above: Performed By: #### C MPX, CDP #### [facility] [address] [place] [address] [employer] Technician: Khadar Tang MD GFR/1.73 sq M.predicted among non-blacks MDRD (S/P/Bld) [Vol rate/Area] mL/min/{1.73_m2} Normal >60 [facility] Comment on above: Result Comment: These results [...] Performed By: #### C MPX, CDP #### [facility] [address] [place], [place] 0240983 [employer] Technician: Khadar Tang MD Glucose [Mass/Vol] 250 mg/dL High 70-99 [facility] Comment on above: Performed By: #### C MPX, CDP #### [facility] [address] [place] [address] Dr. [place], [place] [id number] [employer] Technician: Khadar Tang MD Potassium [Moles/Vol] 4.0 mmol/L Normal 3.7-5.3 [facility] Comment on above: Performed By: #### C MPX, CDP #### [facility] [address] [place] [address] Dr. [place], [place] [id number] [employer] Technician: Khadar Tang MD Sodium [Moles/Vol] 140 mmol/L Normal 135-144 [facility] Comment on above: Performed By: #### C MPX, CDP #### [facility] [address] [place], [place] 5175483 [employer] Technician: Khadar Tang MD Urea nitrogen [Mass/Vol] 29 mg/dL High 8-23 [facility] Comment on above: Performed By: #### C MPX, CDP #### [facility] [address] [place], [place] 1469383 [employer] Technician: Khadar Tang MD CBC with Auto Differentialon 07-02-2022 Absolute Eos # 0.80 High [facility] Absolute Immature Granulocyte 0.06 [facility] Absolute Lymph # 1.38 [facility] Absolute [place] # 0.81 [facility] Basophils Absolute [facility] Basophils/100 WBC (Bld) 0 % 0 - 2 % [facility] Eosinophils/100 WBC (Bld) 7 % High 1 - 4 % [facility] Hematocrit (Bld) [Volume fraction] 26.8 % Low 40.7 - 50.3 % [facility] Hemoglobin (Bld) [Mass/Vol] 7.9 g/dL Low 13.0 - 17.0 g/dL [facility] Immature granulocytes/100 WBC (Bld) 1 % High 0 [facility] Interpretation and review of laboratory results Abnormal [facility] Lymphocytes/100 WBC (Bld) 13 % Low 24 - 43 % [facility] MCH (RBC) [Entitic mass] 23.3 pg Low 25.2 - 33.5 pg [facility] MCHC (RBC) [Mass/Vol] 29.5 g/dL 28.4 - 34.8 g/dL [facility] MCV (RBC) [Entitic vol] 79.1 fL Low 82.6 - 102.9 fL [facility] Monocytes/100 WBC (Bld) 8 % 3 - 12 % [facility] NRBC Automated 0.0 0.0 per 100 WBC [facility] Platelet distribution width (Bld) [Ratio] 16.1 % High 11.8 - 14.4 % [facility] Platelet mean volume (Bld) [Entitic vol] 9.1 fL 8.1 - 13.5 fL [facility] Platelets (Bld) [#/Vol] 241 10*3/uL [facility] RBC (Bld) [#/Vol] 3.39 10*6/uL Low 4.21 - 5.77 m/uL [facility] Segmented neutrophils/100 WBC (Bld) 71 % High 36 - 65 % [facility] Segs Absolute 7.79 [facility] WBC (Bld) [#/Vol] 10.9 10*3/uL [facility] CBC with Diffon 07-02-2022 Abs. Basophil <0.03 Normal 0.00-0.20 [facility] Comment on above: Performed By: #### C MPX, CDP #### [address] [place], [place] [id number] [employer] Technician: Khadar Tang MD Abs.Imm.Granulocyte 0.06 k/uL Normal 0.00-0.30 [facility] Comment on above: Performed By: #### C MPX, CDP #### [address] [place], [facility]83 [employer] Technician: Khadar Tang MD Abs.Neutrophil (Seg) 7.79 k/uL Normal 1.50-8.10 [facility] Comment on above: Performed By: #### C MPX, CDP #### [address] [place] [address] [employer] Technician: Khadar Tang MD Basophils/100 WBC (Bld) 0 % Normal 0-2 [facility] Comment on above: Performed By: #### C MPX, CDP #### [address] [place], [place] [address] [employer] Technician: Khadar Tang MD Eosinophils (Bld) [#/Vol] 0.80 10*3/uL High 0.00-0.44 [facility] Comment on above: Performed By: #### C MPX, CDP #### [address] [place], [place] [address] [employer] Technician: Khadar Tang MD Eosinophils/100 WBC (Bld) 7 % High 1-4 [facility] Comment on above: Performed By: #### C MPX, CDP #### [address] [place], [facility]83 [employer] Technician: Khadar Tang MD Erythrocyte distribution width (RBC) [Ratio] 16.1 % High 11.8-14.4 [facility] Comment on above: Performed By: #### C MPX, CDP #### [facility] [address] [place] [place] [address] [employer] Technician: Khadar Tang MD Hematocrit (Bld) [Volume fraction] 26.8 % Low 40.7-50.3 [facility] Comment on above: Performed By: #### C MPX, CDP #### [facility] [address] [place] [address] Dr. [place], [place] 6443783 [employer] Technician: Khadar Tang MD Hemoglobin (Bld) [Mass/Vol] 7.9 g/dL Low 13.0-17.0 [facility] Comment on above: Performed By: #### C MPX, CDP #### [address] [place] [address] [place] [address] [employer] Technician: Khadar Tang MD Immature granulocytes/100 WBC (Bld) 1 % High 0 [facility] Comment on above: Performed By: #### C MPX, CDP #### [address] [place], [place] 7402883 [employer] Technician: Khadar Tang MD Lymphocytes (Bld) [#/Vol] 1.38 10*3/uL Normal 1.10-3.70 [facility] Comment on above: Performed By: #### C MPX, CDP #### [address] [place], [place] 1485783 [employer] Technician: Khadar Tang MD Lymphocytes/100 WBC (Bld) 13 % Low 24-43 [facility] Comment on above: Performed By: #### C MPX, CDP #### [address] [place] [address] [place] [address] [employer] Technician: Khadar Tang MD MCH (RBC) [Entitic mass] 23.3 pg Low 25.2-33.5 [facility] Comment on above: Performed By: #### C MPX, CDP #### [facility] [address] [place] [address] Dr. [place], [place] 4079283 [employer] Technician: Khadar Tang MD MCHC (RBC) [Mass/Vol] 29.5 g/dL Normal 28.4-34.8 [facility] Comment on above: Performed By: #### C MPX, CDP #### [address] [place], [place] 8730183 [employer] Technician: Khadar Tang MD MCV (RBC) [Entitic vol] 79.1 fL Low 82.6-102.9 [facility] Comment on above: Performed By: #### C MPX, CDP #### [address] [place], [place] 2104583 [employer] Technician: Khadar Tang MD Monocytes (Bld) [#/Vol] 0.81 10*3/uL Normal 0.10-1.20 [facility] Comment on above: Performed By: #### C MPX, CDP #### [address] [place], [place] 5428683 [employer] Technician: Khadar Tang MD Monocytes/100 WBC (Bld) 8 % Normal 3-12 [facility] Comment on above: Performed By: #### C MPX, CDP #### [address] [place], [place] 5243983 [employer] Technician: Khadar Tang MD Neutrophil (Seg) 71 % High 36-65 [facility] Comment on above: Performed By: #### C MPX, CDP #### [address] [place], [place] 4529683 [employer] Technician: Khadar Tang MD NRBC Automated 0.0 per 100 WBC Normal 0.0 [facility] Comment on above: Performed By: #### C MPX, CDP #### [address] [place] [address] [place] [address] [employer] Technician: Khadar Tang MD Platelet mean volume (Bld) [Entitic vol] 9.1 fL Normal 8.1-13.5 [facility] Comment on above: Performed By: #### C MPX, CDP #### [facility] [address] [place], [place] 1543183 [employer] Technician: Khadar Tang MD Platelets (Bld) [#/Vol] 241 10*3/uL Normal 138-453 [facility] Comment on above: Performed By: #### C MPX, CDP #### [facility] [address] [place], [place] 5397783 [employer] Technician: Khadar Tang MD RBC (Bld) [#/Vol] 3.39 10*6/uL Low 4.21-5.77 [facility] Comment on above: Performed By: #### C MPX, CDP #### [facility] [address] [place], [place] 4829283 [employer] Technician: Khadar Tang MD WBC (Bld) [#/Vol] 10.9 10*3/uL Normal 3.5-11.3 [facility] Comment on above: Performed By: #### C MPX, CDP #### [facility] [address] [place], [place] 3796983 [employer] Technician: Khadar Tang MD Cult,Woundon 06-27-2022 Cult,Wound Specimen Description .WOUND Special Requests LEG Direct Exam NO NEUTROPHILS SEEN NO ORGANISMS SEEN Culture NO GROWTH Report Status FINAL 06/27/2022 Normal [facility] Comment on above: Performed By: #### C MPX, CDP #### [facility] [address] [place] [address] [place] [address] [employer] Technician: Khadar Tang MD CBC auto differentialon 05-29 Absolute Eos # 0.63 High [facility] Absolute Immature Granulocyte 0.05 [facility] Absolute Lymph # 1.33 [facility] Absolute [place] # 0.82 [facility] Basophils Absolute [facility] Basophils/100 WBC (Bld) 0 % 0 - 2 % [facility] Eosinophils/100 WBC (Bld) 7 % High 1 - 4 % [facility] Hematocrit (Bld) [Volume fraction] 24.4 % Low 40.7 - 50.3 % [facility] Hemoglobin (Bld) [Mass/Vol] 7.6 g/dL Low 13.0 - 17.0 g/dL [facility] Immature granulocytes/100 WBC (Bld) 1 % High 0 [facility] Interpretation and review of laboratory results Abnormal [facility] Lymphocytes/100 WBC (Bld) 14 % Low 24 - 43 % [facility] MCH (RBC) [Entitic mass] 23.8 pg Low 25.2 - 33.5 pg [facility] MCHC (RBC) [Mass/Vol] 31.1 g/dL 28.4 - 34.8 g/dL [facility] MCV (RBC) [Entitic vol] 76.3 fL Low 82.6 - 102.9 fL [facility] Monocytes/100 WBC (Bld) 9 % 3 - 12 % [facility] NRBC Automated 0.0 0.0 per 100 WBC [facility] Platelet distribution width (Bld) [Ratio] 16.0 % High 11.8 - 14.4 % [facility] Platelet mean volume (Bld) [Entitic vol] 8.8 fL 8.1 - 13.5 fL [facility] Platelets (Bld) [#/Vol] 205 10*3/uL [facility] RBC (Bld) [#/Vol] 3.20 10*6/uL Low 4.21 - 5.77 m/uL [facility] Segmented neutrophils/100 WBC (Bld) 69 % High 36 - 65 % [facility] Segs Absolute 6.49 [facility] WBC (Bld) [#/Vol] 9.3 10*3/uL [facility] CBC with Diffon 06-26-2022 Abs. Basophil <0.03 Normal 0.00-0.20 [facility] Comment on above: Performed By: #### C MPX, CDP #### [address] [place] [place] [address] [employer] Technician: Khadar Tang MD Abs.Imm.Granulocyte 0.05 k/uL Normal 0.00-0.30 [facility] Comment on above: Performed By: #### C MPX, CDP #### [address] [place] [address] [employer] Technician: Khadar Tang MD Abs.Neutrophil (Seg) 6.49 k/uL Normal 1.50-8.10 [facility] Comment on above: Performed By: #### C MPX, CDP #### [address] [place] [address] [employer] Technician: Khadar Tang MD Basophils/100 WBC (Bld) 0 % Normal 0-2 [facility] Comment on above: Performed By: #### C MPX, CDP #### [address] [place] [address] [employer] Technician: Khadar Tang MD Eosinophils (Bld) [#/Vol] 0.63 10*3/uL High 0.00-0.44 [facility] Comment on above: Performed By: #### C MPX, CDP #### [address] [place] [address] [employer] Technician: Khadar Tang MD Eosinophils/100 WBC (Bld) 7 % High 1-4 [facility] Comment on above: Performed By: #### C MPX, CDP #### [address] [place] [address] ( [employer] Technician: Khadar Tang MD Erythrocyte distribution width (RBC) [Ratio] 16.0 % High 11.8-14.4 [facility] Comment on above: Performed By: #### C MPX, CDP #### [address] [place], [place] 4048483 [employer] Technician: Khadar Tang MD Hematocrit (Bld) [Volume fraction] 24.4 % Low 40.7-50.3 [facility] Comment on above: Performed By: #### C MPX, CDP #### [facility] [address] [place] [address] Dr. [place], [place] 0426183 [employer] Technician: Khadar Tang MD Hemoglobin (Bld) [Mass/Vol] 7.6 g/dL Low 13.0-17.0 [facility] Comment on above: Performed By: #### C MPX, CDP #### [address] [place] [address] [employer] Technician: Khadar Tang MD Immature granulocytes/100 WBC (Bld) 1 % High 0 [facility] Comment on above: Performed By: #### C MPX, CDP #### [address] [place], [facility]83 [employer] Technician: Khadar Tang MD Lymphocytes (Bld) [#/Vol] 1.33 10*3/uL Normal 1.10-3.70 [facility] Comment on above: Performed By: #### C MPX, CDP #### [address] [place], [facility]83 [employer] Service Technician: Khadar Tang MD Lymphocytes/100 WBC (Bld) 14 % Low 24-43 [facility] Comment on above: Performed By: #### C MPX, CDP #### [address] [place], [place] 0629683 [employer] Service Technician: Khadar Tang MD MCH (RBC) [Entitic mass] 23.8 pg Low 25.2-33.5 [facility] Comment on above: Performed By: #### C MPX, CDP #### [facility] [address] [place] [address] Dr. [place], [facility]83 [employer] Technician: Khadar Tang MD MCHC (RBC) [Mass/Vol] 31.1 g/dL Normal 28.4-34.8 [facility] Comment on above: Performed By: #### C MPX, CDP #### [facility] [address] [place], [place] 9452083 [employer] Technician: Khadar Tang MD MCV (RBC) [Entitic vol] 76.3 fL Low 82.6-102.9 [facility] Comment on above: Performed By: #### C MPX, CDP #### [address] [place], [place] 8860783 [employer] Technician: Khadar Tang MD Monocytes (Bld) [#/Vol] 0.82 10*3/uL Normal 0.10-1.20 [facility] Comment on above: Performed By: #### C MPX, CDP #### [address] [place], [place] 6328683 [employer] Technician: Khadar Tang MD Monocytes/100 WBC (Bld) 9 % Normal 3-12 [facility] Comment on above: Performed By: #### C MPX, CDP #### [address] [place], [place] 9796983 [employer] Technician: Khadar Tang MD Neutrophil (Seg) 69 % High 36-65 [facility] Comment on above: Performed By: #### C MPX, CDP #### [facility] [address] [place] [address] Dr. [place], [place] [phone] [employer] Technician: Khadar Tang MD NRBC Automated 0.0 per 100 WBC Normal 0.0 [facility] Comment on above: Performed By: #### C MPX, CDP #### [address] [place], [place] 7571583 [employer] Service Technician: Khadar Tang MD Platelet mean volume (Bld) [Entitic vol] 8.8 fL Normal 8.1-13.5 [facility] Comment on above: Performed By: #### C MPX, CDP #### [facility] [address] [place], [place] 7321483 [employer] Technician: Khadar Tang MD Platelets (Bld) [#/Vol] 205 10*3/uL Normal 138-453 [facility] Comment on above: Performed By: #### C MPX, CDP #### [facility] [address] [place], [place] 0268583 [employer] Technician: Khadar Tang MD RBC (Bld) [#/Vol] 3.20 10*6/uL Low 4.21-5.77 [facility] Comment on above: Performed By: #### C MPX, CDP #### [facility] [address] [place], [place] 6869783 [employer] Service Technician: Khadar Tang MD WBC (Bld) [#/Vol] 9.3 10*3/uL Normal 3.5-11.3 [facility] Comment on above: Performed By: #### C MPX, CDP #### [facility] [address] [place], [place] 8512783 [employer] Service Technician: Khadra Tang MD EKG Rhythm Stripon 3 rd [facility] Glucose, Whole Bloodon 06-26 Glucose [Mass/Vol] 95 mg/dL 74 - 100 mg/dL [facility] No Panel Informationon 06-26 No dictation [facility] Work Phone: [facility] Work Phone: Surgical Pathologyon 023 Surgical Pathology (NOTE) -- Diagnosis -- POLYP, TRANSVERSE COLON, POLYPECTOMY:-FRAGMENTS OF TUBULAR ADENOMA. Jaz Kiran Electronically Signed Out /06/30/2022 Clinical Information Pre-Op Diagnosis: HYPERKALEMIA Operative Findings: [...] SURGICAL PATHOLOGY CONSULTATION Patient Name: GANGA STINSON [facility] Rec: [id number] Path Number: [id number] [facility] [employer] [facility] [facility] ANATOMIC PATHOLOGY [address] [place] [id number] Normal [facility] Comment on above: Performed By: #### C MPX, CDP #### [facility] [address] [place] [address] [employer] Technician: Khadar Tang MD Blood occult stool #1on 05-29 Date, Stool #1 3 [facility] Comment on above: 30 23 Hemoglobin.gastrointe stinal spec 1 Ql (Stl) Negative NEGATIVE [facility] Time, Stool #1 1945 [facility] CBC auto differentialon 05-29 Absolute Eos # 0.63 High [facility] Absolute Immature Granulocyte 0.07 [facility] Absolute Lymph # 1.63 [facility] Absolute [place] # 0.76 [facility] Basophils Absolute [facility] Basophils/100 WBC (Bld) 0 % 0 - 2 % [facility] Eosinophils/100 WBC (Bld) 7 % High 1 - 4 % [facility] Hematocrit (Bld) [Volume fraction] 24.6 % Low 40.7 - 50.3 % [facility] Hemoglobin (Bld) [Mass/Vol] 7.6 g/dL Low 13.0 - 17.0 g/dL [facility] Immature granulocytes/100 WBC (Bld) 1 % High 0 [facility] Interpretation and review of laboratory results Abnormal [facility] Lymphocytes/100 WBC (Bld) 19 % Low 24 - 43 % [facility] MCH (RBC) [Entitic mass] 23.7 pg Low 25.2 - 33.5 pg [facility] MCHC (RBC) [Mass/Vol] 30.9 g/dL 28.4 - 34.8 g/dL [facility] MCV (RBC) [Entitic vol] 76.6 fL Low 82.6 - 102.9 fL [facility] Monocytes/100 WBC (Bld) 9 % 3 - 12 % [facility] NRBC Automated 0.0 0.0 per 100 WBC [facility] Platelet distribution width (Bld) [Ratio] 15.9 % High 11.8 - 14.4 % [facility] Platelet mean volume (Bld) [Entitic vol] 8.9 fL 8.1 - 13.5 fL [facility] Platelets (Bld) [#/Vol] 223 10*3/uL [facility] RBC (Bld) [#/Vol] 3.21 10*6/uL Low 4.21 - 5.77 m/uL [facility] Segmented neutrophils/100 WBC (Bld) 64 % 36 - 65 % [facility] Segs Absolute 5.60 [facility] WBC (Bld) [#/Vol] 8.7 10*3/uL [facility] CBC with Diffon 06-25-2022 Abs. Basophil <0.03 Normal 0.00-0.20 [facility] Comment on above: Performed By: #### T ROPI #### [facility] [address] [place] [address] [place] [address] [employer] Technician: Khadar Tang MD Abs.Imm.Granulocyte 0.07 k/uL Normal 0.00-0.30 [facility] Comment on above: Performed By: #### T ROPI #### [facility] [address] [place] [address] [employer] Technician: Khadar Tang MD Abs.Neutrophil (Seg) 5.60 k/uL Normal 1.50-8.10 [facility] Comment on above: Performed By: #### T ROPI #### [facility] [address] [place], [place] 8508783 [employer] Technician: Khadar Tang MD Basophils/100 WBC (Bld) 0 % Normal 0-2 [facility] Comment on above: Performed By: #### T ROPI #### [address] [place], [place] [id number] [employer] Technician: Khadar Tang MD Eosinophils (Bld) [#/Vol] 0.63 10*3/uL High 0.00-0.44 [facility] Comment on above: Performed By: #### T ROPI #### [address] [place], [place] 3358483 [employer] Technician: hKadar Tang MD Eosinophils/100 WBC (Bld) 7 % High 1-4 [facility] Comment on above: Performed By: #### T ROPI #### [address] [place], [facility]83 [employer] Technician: Khadar Tang MD Erythrocyte distribution width (RBC) [Ratio] 15.9 % High 11.8-14.4 [facility] Comment on above: Performed By: #### T ROPI #### [address] [place], [facility]83 [employer] Technician: Khadar Tang MD Hematocrit (Bld) [Volume fraction] 24.6 % Low 40.7-50.3 [facility] Comment on above: Performed By: #### T ROPI #### [address] [place], [place] [id number] [employer] Technician: Khadar Tang MD Hemoglobin (Bld) [Mass/Vol] 7.6 g/dL Low 13.0-17.0 [facility] Comment on above: Performed By: #### T ROPI #### [address] [place], [place] 1801383 [employer] Technician: Khadar Tang MD Immature granulocytes/100 WBC (Bld) 1 % High 0 [facility] Comment on above: Performed By: #### T ROPI #### [facility] [address] [place] [address] [employer] Technician: Khadar Tang MD Lymphocytes (Bld) [#/Vol] 1.63 10*3/uL Normal 1.10-3.70 [facility] Comment on above: Performed By: #### T ROPI #### [facility] [address] [place] [address] Dr. [place], [place] [id number] [employer] Technician: Khadar Tang MD Lymphocytes/100 WBC (Bld) 19 % Low 24-43 [facility] Comment on above: Performed By: #### T ROPI #### [address] [place] [address] [place] [address] [employer] Technician: Khadar Tang MD MCH (RBC) [Entitic mass] 23.7 pg Low 25.2-33.5 [facility] Comment on above: Performed By: #### T ROPI #### [address] [place] [address] [place] [address] [employer] Technician: Khadar Tang MD MCHC (RBC) [Mass/Vol] 30.9 g/dL Normal 28.4-34.8 [facility] Comment on above: Performed By: #### T ROPI #### [facility] [address] [place] [address] [place] [address] [employer] Technician: Khadar Tang MD MCV (RBC) [Entitic vol] 76.6 fL Low 82.6-102.9 [facility] Comment on above: Performed By: #### T ROPI #### [address] [place] [address] [place] [address] [employer] Technician: Khadar Tang MD Monocytes (Bld) [#/Vol] 0.76 10*3/uL Normal 0.10-1.20 [facility] Comment on above: Performed By: #### T ROPI #### [facility] [address] [place], [place] [id number] [employer] Technician: Khadar Tang MD Monocytes/100 WBC (Bld) 9 % Normal 3-12 [facility] Comment on above: Performed By: #### T ROPI #### [facility] [address] [place], [facility] [employer] Technician: Khadar Tang MD Neutrophil (Seg) 64 % Normal 36-65 [facility] Comment on above: Performed By: #### T ROPI #### [facility] [address] [place], [place] [address] [employer]ician: Khadar Tang MD NRBC Automated 0.0 per 100 WBC Normal 0.0 [facility] Comment on above: Performed By: #### T ROPI #### [facility] [address] [place], [facility] [employer] Technician: Khadar Tang MD Platelet mean volume (Bld) [Entitic vol] 8.9 fL Normal 8.1-13.5 [facility] Comment on above: Performed By: #### T ROPI #### [address] [place], [place] 3576383 [employer] Technician: Khadar Tang MD Platelets (Bld) [#/Vol] 223 10*3/uL Normal 138-453 [facility] Comment on above: Performed By: #### T ROPI #### [facility] [address] [place], [place] [id number] [employer] Technician: Khadar Tang MD RBC (Bld) [#/Vol] 3.21 10*6/uL Low 4.21-5.77 [facility] Comment on above: Performed By: #### T ROPI #### [facility] [address] [place], [place] [address]83 [employer] Technician: Khadar Tang MD WBC (Bld) [#/Vol] 8.7 10*3/uL Normal 3.5-11.3 [facility] Comment on above: Performed By: #### T ROPI #### [facility] [address] [place], [place] [id number] [employer] Technician: Khadar Tang MD Comp Metabolic Pr/rfx MGon 0 - Albumin [Mass/Vol] 2.8 g/dL Low 3.5-5.2 [facility] Comment on above: Performed By: #### T ROPI #### [facility] [address] [place], [place] [address]83 [employer] Technician: Khadar Tang MD Albumin/Glob Ratio 0.7 Low 1.0-2.5 [facility] Comment on above: Performed By: #### T ROPI #### [facility] [address] [place], [place] [address]284683 [employer] Technician: Khadar Tang MD Alkaline Phos 75 U/L Normal 40-129 [facility] Comment on above: Performed By: #### T ROPI #### [facility] [address] [place] [address] [address]. [place], [place] 988[address]83 [employer] Technician: Khadar Tang MD ALT [Catalytic activity/Vol] 9 U/L Normal 5-41 [facility] Comment on above: Performed By: #### T ROPI #### [facility] [address] [place], [place] [address]83 [employer] Technician: Khadar Tang MD Anion gap [Moles/Vol] 6 mmol/L Low 9-17 [facility] Comment on above: Performed By: #### T ROPI #### [facility] [address] [place], [place] [address]28483 [employer] Technician: Khadar Tang MD AST [Catalytic activity/Vol] 10 U/L Normal <40 [facility] Comment on above: Performed By: #### T ROPI #### [facility] [address] [place], [place] 1231283 [employer] Technician: Khadar Tang MD Bilirubin [Mass/Vol] 0.3 mg/dL Normal 0.3-1.2 [facility] Comment on above: Performed By: #### T ROPI #### [facility] [address] [place], [place] [address]83 [employer] Technician: Khadar Tang MD BUN/CRE Ratio 20 Normal 9-20 [facility] Comment on above: Performed By: #### T ROPI #### [facility] [address] [place], [place] 250[address]183 [employer] Technician: Khadar Tang MD Calcium [Mass/Vol] 8.7 mg/dL Normal 8.6-10.4 [facility] Comment on above: Performed By: #### T ROPI #### [facility] [address] [place], [place] [address]83 [employer] Technician: Khadar Tang MD Chloride [Moles/Vol] 113 mmol/L High 98-107 [facility] Comment on above: Performed By: #### T ROPI #### [facility] [address] [place], [place] [address]83 [employer] Technician: Khadar Tang MD CO2 [Moles/Vol] 20 mmol/L Normal 20-31 [facility] Comment on above: Performed By: #### T ROPI #### [facility] [address] [place], [place] [address]83 [employer] Technician: Khadar Tang MD Creatinine [Mass/Vol] 0.97 mg/dL Normal 0.70-1.20 [facility] Comment on above: Performed By: #### T ROPI #### [facility] [address] [place], [place] 44[address]83 [employer] Technician: Khadar Tang MD GFR/1.73 sq M.predicted among non-blacks MDRD (S/P/Bld) [Vol rate/Area] mL/min/{1.73_m2} Normal >60 [facility] Comment on above: Result Comment: These results [...] secretion. Performed By: #### T ROPI #### [facility] [address] [place] [address] [place] [address] [employer] Technician: Khadar Tang MD Glucose [Mass/Vol] 144 mg/dL High 70-99 [facility] Comment on above: Performed By: #### T ROPI #### [facility] [address] [place] [address] [place] [address] [employer] Technician: Khadar Tang MD Potassium [Moles/Vol] 4.5 mmol/L Normal 3.7-5.3 [facility] Comment on above: Performed By: #### T ROPI #### [address] [place] [address] [place] [address] [employer] Technician: Khadar Tang MD Protein [Mass/Vol] 6.7 g/dL Normal 6.4-8.3 [facility] Comment on above: Performed By: #### T ROPI #### [facility] [address] [place] [address] [place] [address] [employer] Technician: Khadar Tang MD Sodium [Moles/Vol] 139 mmol/L Normal 135-144 [facility] Comment on above: Performed By: #### T ROPI #### [facility] [address] [place] [address] [place] [address] [employer] Technician: Khadar Tang MD Urea nitrogen [Mass/Vol] 19 mg/dL Normal 8-23 [facility] Comment on above: Performed By: #### T CINDY #### [facility] [address] [place] [address] [employer] Technician: Khadar Tang MD Comprehensive Metabolic Pane l w/ Reflex to MGon 06-25-2022 Albumin [Mass/Vol] 2.8 g/dL Low 3.5 - 5.2 g/dL [facility] Albumin/Globulin [Mass ratio] 0.7 {ratio} Low 1.0 - 2.5 [facility] ALP [Catalytic activity/Vol] 75 U/L 40 - 129 U/L [facility] ALT [Catalytic activity/Vol] 9 U/L 5 - 41 U/L [facility] Anion gap [Moles/Vol] 6 mmol/L Low 9 - 17 mmol/L [facility] AST [Catalytic activity/Vol] 10 U/L NINF - 40 U/L [facility] Bilirubin [Mass/Vol] 0.3 mg/dL 0.3 - 1 .2 mg/dL [facility] Calcium [Mass/Vol] 8.7 mg/dL 8.6 - 10. 4 mg/dL [facility] Chloride [Moles/Vol] 113 mmol/L High 98 - 10 7 mmol/L [facility] CO2 [Moles/Vol] 20 mmol/L 20 - 31 mmol/L [facility] Creatinine [Mass/Vol] 0.97 mg/dL 0.70 - 1.20 mg/dL [facility] GFR/1.73 sq M.predicted MDRD (S/P/Bld) [Vol rate/Area] - PINF [facility] Comment on above: These results are not [...] 144 mg/dL High 70 - 99 mg/dL [facility] Interpretation and review of laboratory results Abnormal [facility] Potassium [Moles/Vol] 4.5 mmol/L 3.7 - 5.3 mmol/L [facility] Protein [Mass/Vol] 6.7 g/dL 6.4 - 8.3 g/dL [facility] Sodium [Moles/Vol] 139 mmol/L 135 - 144 mmol/L [facility] Urea nitrogen [Mass/Vol] 19 mg/dL 8 - 23 mg/dL [facility] Urea nitrogen/Creatinine (Bld) [Mass ratio] 20 9 - 20 [facility] Cult,Woundon 06-25-2022 Cult,Wound Specimen Description .BUTTOCK Direct Exam FEW NEUTROPHILS MODERATE GRAM POSITIVE COCCI IN PAIRS MODERATE GRAM POSITIVE RODS Culture NORMAL SKIN ROBBIE Report Status FINAL 06/25/2022 [facility] Comment on above: Performed By: #### T ROPI #### [facility] [address] [place] [address] [employer] Technician: Khadar Tang MD EKG Rhythm Stripon 3 [facility] Occult Blood, Fecalon 2022 Occult Blood 1 Negative Normal NEG [facility] Comment on above: Performed By: #### C MPX, CDP #### [facility] [address] [place] [address] [employer] Technician: Khadar Tang MD Specimen 1 Date [facility] Comment on above: Result Comment: Performed By: #### C FIFI, CDP #### [facility] [address] [place] [address] [employer] Technician: Khadar Tang MD Specimen 1 Time 1944 [facility] Comment on above: Performed By: #### C MPX, CDP #### [facility] [address] [place] [place] [address] [employer] Technician: Khadar Tang MD Surgical Pathologyon 023 Surgical Pathology (NOTE) -- Diagnosis -- RIGHT ANKLE, FIBULAR MALLEOLUS, BONE, EXCISION: - BENIGN BONE WITH HYPOCELLULAR AND FOCALLY FIBROTIC MARROW. - BENIGN PERIOSTEAL TISSUE WITH REACTIVE FIBROSIS. - NEGATIVE FOR OSTEOMYELITIS AND NEOPLASIA. Dilan Salvador M.D. Electronically Signed [facility]/06/29/2022 Clinical Information Operative Findings: FIBULAR MALLEOLUS, RIGHT ANKLE tm Source of Specimen A: FIBULAR MALLEOLUS,RIGHT ANKLE Gross Description YAA RODRIGUEZ Received in formalin is a 0.8 x 0.2 x 0.1 cm pardo, firm tissue fragment. Totally embedded 1c, decal. tm Microscopic Description Microscopic examination performed. SURGICAL PATHOLOGY CONSULTATION Patient Name: GANGA STINSON [facility] Rec: [id number] Path Number: [id number] [facility] [employer] [facility] [facility] ANATOMIC PATHOLOGY [address] [place] [id number] Normal [facility] Comment on above: Performed By: #### C MPX, CDP #### [address] [place] [place] [address] [employer] Technician: Khadar Tang MD TYPE AND SCREENon 06-25-2022 ABO/Rh Negative [facility] Arm Band Number [id number] [facility] Blood Bank Blood Product Expiration Date [id number] [facility] Blood Bank ISBT Product Blood Type 9500 [facility] Blood Bank Unit Type and Rh Negative [facility] Blood product type Nom (BPU) Leukocyte Reduced Red Cell [facility] Blood product unit ID (Dose) [#] [id number] [facility] Crossmatch Result COMPATIBLE [facility] Dispense Status TRANSFUSED [facility] Expiration Date 06/27/2022,2359 [facility] Product Code Blood Bank [id number] [facility] Transfusion Status OK TO TRANSFUSE B ON [facility] Unit Divison 0 [facility] Unit Issue Date/Time [id number] FERNY N [facility] APTTon 06-24-2022 aPTT Coag (Bld) [Time] 35.6 s High 26.8-34.8 [facility] Comment on above: Result Comment: IV Heparin Therapy Range: 62.0-94.0 Performed By: #### C MPX, CDP #### [facility] [address] [place], [place] [id number] [employer] Technician: Khadar Tang MD B12/Folate Panelon Cobalamin (Vitamin B12) [Mass/Vol] 446 pg/mL Normal 232-1245 [facility] Comment on above: Performed By: #### C MPX, CDP #### [facility] [address] [place], [place] [address]83 [employer] Technician: Khadar Tang MD Folic Acid 8.2 ng/mL Normal >4.8 [facility] Comment on above: Performed By: #### C MPX, CDP #### [facility] [address] [place], [place] 535[address]83 [employer] Technician: Khadar Tang MD CBC auto differentialon 05-28 Absolute Eos # 0.46 High [facility] Absolute Immature Granulocyte 0.07 [facility] Absolute Lymph # 1.52 [facility] Absolute [place] # 0.53 [facility] Basophils (Bld) [#/Vol] 0.00 10*3/uL [facility] Hematocrit (Bld) [Volume fraction] 21.7 % Low 40.7 - 50.3 % [facility] Hemoglobin (Bld) [Mass/Vol] 6.6 g/dL Critically low 13.0 - 17.0 g/dL [facility] Interpretation and review of laboratory results Abnormal [facility] MCH (RBC) [Entitic mass] 23.4 pg Low 25.2 - 33.5 pg [facility] MCHC (RBC) [Mass/Vol] 30.4 g/dL 28.4 - 34.8 g/dL [facility] MCV (RBC) [Entitic vol] 77.0 fL Low 82.6 - 102.9 fL [facility] Morphology Álvaro (Bld) [Interp] HYPOCHROMIA PRESENT [facility] NRBC Automated 0.0 0.0 per 100 WBC [facility] Platelet distribution width (Bld) [Ratio] 16.2 % High 11.8 - 14.4 % [facility] Platelet mean volume (Bld) [Entitic vol] 8.9 fL 8.1 - 13.5 fL [facility] Platelets (Bld) [#/Vol] 208 10*3/uL [facility] RBC (Bld) [#/Vol] 2.82 10*6/uL Low 4.21 - 5.77 m/uL [facility] Segmented neutrophils/100 WBC (Bld) 61 % 36 - 65 % [facility] Segs Absolute 4.02 [facility] WBC (Bld) [#/Vol] 6.6 10*3/uL [facility] CBC with Diffon 06-24-2022 Abs. Basophil 0.00 k/uL Normal 0.0-0.2 [facility] Comment on above: Performed By: #### C MPX, CDP #### [facility] [address] [place] [address] [employer] Technician: Khadar Tang MD Abs.Imm.Granulocyte 0.07 k/uL Normal 0.00-0.30 [facility] Comment on above: Performed By: #### C MPX, CDP #### [facility] [address] [place] [address] [employer] Technician: Khadar Tang MD Abs.Neutrophil (Seg) 4.02 k/uL Normal 1.50-8.10 [facility] Comment on above: Performed By: #### C MPX, CDP #### [facility] [address] [place], [place] [address]83 [employer] Technician: Khadar Tang MD Eosinophils (Bld) [#/Vol] 0.46 10*3/uL High 0.00-0.44 [facility] Comment on above: Performed By: #### C MPX, CDP #### [facility] [address] [place], [place] [address] [employer] Technician: Khadar Tang MD Lymphocytes (Bld) [#/Vol] 1.52 10*3/uL Normal 1.10-3.70 [facility] Comment on above: Performed By: #### C MPX, CDP #### [address] [place], [facility]83 [employer] Technician: Khadar Tang MD Monocytes (Bld) [#/Vol] 0.53 10*3/uL Normal 0.10-1.20 [facility] Comment on above: Performed By: #### C MPX, CDP #### [address] [place], [place] [address] [employer] Technician: Khadar Tang MD Morphology Álvaro (Bld) [Interp] HYPOCHROMIA Normal [facility] Comment on above: Result Comment: PRES ENT Performed By: #### C MPX, CDP #### [address] [place], [facility]83 [employer] Technician: Khadar Tang MD Neutrophil (Seg) 61 % Normal 36-65 [facility] Comment on above: Performed By: #### C MPX, CDP #### [address] [place], [facility]83 [employer] Service Technician: Khadar Tang MD Erythrocyte distribution width (RBC) [Ratio] 16.2 % High 11.8-14.4 [facility] Comment on above: Performed By: #### C MPX, CDP #### [address] [place] [facility]83 [employer] Technician: Khadar Tang MD Hematocrit (Bld) [Volume fraction] 21.7 % Low 40.7-50.3 [facility] Comment on above: Performed By: #### C MPX, CDP #### [facility] [address] [place], [facility]83 [employer] Technician: Khadar Tang MD Hemoglobin (Bld) [Mass/Vol] 6.6 g/dL Critically low 13.0-17.0 [facility] Comment on above: Performed By: #### C MPX, CDP #### [address] [place], [facility]83 [employer] Technician: Khadar Tang MD MCH (RBC) [Entitic mass] 23.4 pg Low 25.2-33.5 [facility] Comment on above: Performed By: #### C MPX, CDP #### [address] [place], [facility]83 [employer] Technician: Khadar Tang MD MCHC (RBC) [Mass/Vol] 30.4 g/dL Normal 28.4-34.8 [facility] Comment on above: Performed By: #### C MPX, CDP #### [address] [place], [facility]83 [employer] Technician: Khadar Tang MD MCV (RBC) [Entitic vol] 77.0 fL Low 82.6-102.9 [facility] Comment on above: Performed By: #### C MPX, CDP #### [address] [place] [address] Wind T[employer] Service Technician: Khadar Tang MD NRBC Automated 0.0 per 100 WBC Normal 0.0 [facility] Comment on above: Performed By: #### C MPX, CDP #### [facility] [address] [place] [address] [employer] Service Technician: Khadar Tang MD Platelet mean volume (Bld) [Entitic vol] 8.9 fL Normal 8.1-13.5 [facility] Comment on above: Performed By: #### C MPX, CDP #### [facility] [address] [place], [place] [address]83 [employer] Technician: Khadar Tang MD Platelets (Bld) [#/Vol] 208 10*3/uL Normal 138-453 [facility] Comment on above: Performed By: #### C MPX, CDP #### [facility] [address] [place], [place] 1393083 [employer] Technician: Khadar Tang MD RBC (Bld) [#/Vol] 2.82 10*6/uL Low 4.21-5.77 [facility] Comment on above: Performed By: #### C MPX, CDP #### [address] [place], [place] 5221483 [employer] Technician: Khadar Tang MD WBC (Bld) [#/Vol] 6.6 10*3/uL Normal 3.5-11.3 [facility] Comment on above: Performed By: #### C MPX, CDP #### [address] [place], [place] [address]18183 [employer] Technician: Khadar Tang MD Basophils/100 WBC (Bld) 0 % Normal 0-2 [facility] Comment on above: Performed By: #### C MPX, CDP #### [address] [place], [place] 7708383 [employer] Technician: Khadar Tang MD Eosinophils/100 WBC (Bld) 7 % High 1-4 [facility] Comment on above: Performed By: #### C MPX, CDP #### [facility] [address] [place], [place] [address]83 [employer] Technician: Khadar Tang MD Immature granulocytes/100 WBC (Bld) 1 % High 0 [facility] Comment on above: Performed By: #### C MPX, CDP #### [facility] [address] [place], [place] [address]83 [employer] Technician: Khadar Tang MD Lymphocytes/100 WBC (Bld) 23 % Low 24-43 [facility] Comment on above: Performed By: #### C MPX, CDP #### [facility] [address] [place], [place] 9865483 [employer] Service Technician: Khadar Tang MD Monocytes/100 WBC (Bld) 8 % Normal 3-12 [facility] Comment on above: Performed By: #### C MPX, CDP #### [address] [place], [place] 07[address]83 [employer] Service Technician: Khadar Tang MD Comp Metabolic Pr/rfx MGon 0 06-24-2022 Albumin [Mass/Vol] 2.4 g/dL Low 3.5-5.2 [facility] Comment on above: Performed By: #### C MPX, CDP #### [address] [place] [address] [employer] Service Technician: Khadar Tang MD Albumin/Glob Ratio 0.6 Low 1.0-2.5 [facility] Comment on above: Performed By: #### C MPX, CDP #### [facility] [address] [place], [place] 2384383 [employer] Service Technician: Khadar Tang MD Alkaline Phos 75 U/L Normal 40-129 [facility] Comment on above: Performed By: #### C MPX, CDP #### [facility] [address] [place] [address] [employer] Service Technician: Khadar Tang MD ALT [Catalytic activity/Vol] 9 U/L Normal 5-41 [facility] Comment on above: Performed By: #### C MPX, CDP #### [facility] [address] [place], [place] 268[address]83 [employer] Technician: Khadar Tang MD Anion gap [Moles/Vol] 7 mmol/L Low 9-17 [facility] Comment on above: Performed By: #### C MPX, CDP #### [facility] [address] [place], [place] 1912[address] [employer] Technician: Khadar Tang MD AST [Catalytic activity/Vol] 11 U/L Normal <40 [facility] Comment on above: Performed By: #### C MPX, CDP #### [facility] [address] [place], [place] [address]83 [employer] Service Technician: Khadar Tang MD Bilirubin [Mass/Vol] mg/dL Low 0.3-1.2 [facility] Comment on above: Performed By: #### C MPX, CDP #### [facility] [address] [place], [place] 6479183 [employer] Service Technician: Khadar Tang MD BUN/CRE Ratio 23 High 9-20 [facility] Comment on above: Performed By: #### C MPX, CDP #### [facility] [address] [place], [place] 486[address]83 [employer] Service Technician: Khadar Tang MD Calcium [Mass/Vol] 8.5 mg/dL Low 8.6-10.4 [facility] Comment on above: Performed By: #### C MPX, CDP #### [facility] [address] [place], [place] [address] [employer] Service Technician: Khadar Tang MD Chloride [Moles/Vol] 115 mmol/L High 98-107 [facility] Comment on above: Performed By: #### C MPX, CDP #### [facility] [address] [place], [place] 324[address]83 [employer] Technician: Khadar Tang MD CO2 [Moles/Vol] 18 mmol/L Low 20-31 [facility] Comment on above: Performed By: #### C MPX, CDP #### [facility] [address] [place] [address] [employer] Service Technician: Khadar Tang MD Creatinine [Mass/Vol] 1.11 mg/dL Normal 0.70-1.20 [facility] Comment on above: Performed By: #### C MPX, CDP #### [facility] [address] [place] [address] [employer] Service Technician: Khadar Tang MD GFR/1.73 sq M.predicted among non-blacks MDRD (S/P/Bld) [Vol rate/Area] mL/min/{1.73_m2} Normal >60 [facility] Comment on above: Result Comment: These results [...] Performed By: #### C MPX, CDP #### [facility] [address] [place] [address] [employer] Service Technician: Khadar Tang MD Glucose [Mass/Vol] 137 mg/dL High 70-99 [facility] Comment on above: Performed By: #### C MPX, CDP #### [facility] [address] [place] [address] [employer] Service Technician: Khadar Tang MD Potassium [Moles/Vol] 4.9 mmol/L Normal 3.7-5.3 [facility] Comment on above: Performed By: #### C MPX, CDP #### [facility] [address] [place] [address] [employer] Service Technician: Khadar Tang MD Protein [Mass/Vol] 6.3 g/dL Low 6.4-8.3 [facility] Comment on above: Performed By: #### C MPX, CDP #### [facility] [address] [place] [address] [employer] Technician: Khadar Tang MD Sodium [Moles/Vol] 140 mmol/L Normal 135-144 [facility] Comment on above: Performed By: #### C MPX, CDP #### [facility] [address] [place] [address] [employer] Technician: Khadar Tang MD Urea nitrogen [Mass/Vol] 26 mg/dL High 8-23 [facility] Comment on above: Performed By: #### C MPX, CDP #### [facility] [address] [place] [address] [employer] Technician: Khadar Tang MD Comprehensive Metabolic Pane l w/ Reflex to MGon 06-24-2022 Albumin [Mass/Vol] 2.4 g/dL Low 3.5 - 5.2 g/dL [facility] Albumin/Globulin [Mass ratio] 0.6 {ratio} Low 1.0 - 2.5 [facility] ALP [Catalytic activity/Vol] 75 U/L 40 - 129 U/L [facility] ALT [Catalytic activity/Vol] 9 U/L 5 - 41 U/L [facility] Anion gap [Moles/Vol] 7 mmol/L Low 9 - 17 mmol/L [facility] AST [Catalytic activity/Vol] 11 U/L NINF - 40 U/L [facility] Bilirubin [Mass/Vol] mg/dL Low 0.3 - 1 .2 mg/dL [facility] Calcium [Mass/Vol] 8.5 mg/dL Low 8.6 - 10. 4 mg/dL [facility] Chloride [Moles/Vol] 115 mmol/L High 98 - 10 7 mmol/L [facility] CO2 [Moles/Vol] 18 mmol/L Low 20 - 31 mmol/L [facility] Creatinine [Mass/Vol] 1.11 mg/dL 0.70 - 1.20 mg/dL [facility] GFR/1.73 sq M.predicted MDRD (S/P/Bld) [Vol rate/Area] - PINF [facility] Comment on above: These results [...] 137 mg/dL High 70 - 99 mg/dL [facility] [employer] Interpretation and review of laboratory results Abnormal [facility] Potassium [Moles/Vol] 4.9 mmol/L 3.7 - 5.3 mmol/L [facility] Protein [Mass/Vol] 6.3 g/dL Low 6.4 - 8.3 g/dL [facility] Sodium [Moles/Vol] 140 mmol/L 135 - 144 mmol/L [facility] Urea nitrogen [Mass/Vol] 26 mg/dL High 8 - 23 mg/dL [facility] [employer] Urea nitrogen/Creatinine (Bld) [Mass ratio] 23 High 9 - 20 [facility] Culture, Wound Aerobic Onlyo n 06-24-2022 Interpretation and review of laboratory results Abnormal [facility] Microorganism identified Cx Nom (Unsp spec) NORMAL SKIN ROBBIE [facility] Microorganism or agent identified Nom (Unsp spec) FEW NEUTROPHILS Abnormal [facility] Specimen Description .BUTTOCK [facility] EKG 12 Leadon 06-24-2022 Atrial Rate 64 BPM [facility] [employer] Work Phone: P [place] 51 degrees [facility] Work Phone: P-R Interval 174 ms [facility] [employer] Work Phone: Q-T Interval 394 ms [employer] [facility] Work Phone: QRS Duration 94 ms [employer] [facility] Work Phone: QTc Calculation (Bazett) 406 ms RAIN [employer] Work Phone: R [place] 20 degrees [employer] Work Phone: T [place] 22 degrees [employer] Work Phone: Ventricular Rate 64 BPM RAIN WILLIAM [employer] Work Phone: Normal sinus rhythm Inferior infarct , age undetermined Abnormal ECG When compared with ECG of 22-JUN-2022 17:28, Minimal criteria for Inferior infarct is now Present Confirmed by Michelle Noe MD ([id number]) on 06/24/2022 10:31:37 PM [facility] RADIOLOG[facility] Michelle Noe MD - 06/24/2022 Normal sinus rhythm Inferior infarct , age undetermined Abnormal ECG When compared with ECG of 22-JUN-2022 17:28, Minimal criteria for Inferior infarct is now Present Confirmed by Michelle Noe MD ([id number]) on 06/24/2022 10:31:37 PM [facility] Work Phone: [employer] Work Phone: EKG Rhythm Stripon 3 [facility] Echocardiogram complete 2D w ith doppler with coloron 06-24-2022 Left ventricular Ejection fraction 60 [facility] [employer] Work Phone: LVEF MODALITY ECHO [facility] Work Phone: [facility] Transthoracic Echocardiography Report (TTE) Patient Name ALLOWAY Date of Study 06/24/2022 GANGA Evans Date of 1960 Gender Male Age 61 year(s) Race Room Number 0334 Height: 71 inch, 180.34 cm Corporate ID [id number] Weight: 252 pounds, 114.3 kg # Patient Acct [id number] BSA: 2.33 m^2 BMI: 35.15 kg/m^2 # MR # [id number] Card Cutter Helper Jeanette Clarke Interpreting Physician Michelle Noe Fellow Referring Nurse Shelly Mondragon, Practitioner DOLLY Interpreting Referring Physician Fellow Type of Study TTE procedure:2D Echocardiogram, M-Mode, Doppler, Color Doppler. Procedure Date Date: 06/24/2022 Start: 09:47 AM Study Location: [facility] Indications:Abnormal ECG. History / Tech. Comments: Abn [...] MD / Result, Unknown Provider - 06/24/2022 [facility] Transthoracic Echocardiography Report (TTE) Patient Name ALLOWAY Date of Study 06/24/2022 GANGA Evans Date of 1960 Gender Male Age 61 year(s) Race Room Number 0334 Height: 71 inch, 180.34 cm Corporate ID [id number] Weight: 252 pounds, 114.3 kg # Patient Acct [id number] BSA: 2.33 m^2 BMI: 35.15 kg/m^2 # MR # [id number] Card Cutter Helper Jeanette Clarke Interpreting Physician Michelle Noe Fellow Referring Nurse Shelly Mondragon, Practitioner METAL DRILL OPERATOR Interpreting Referring Physician Fellow Type of Study TTE procedure:2D Echocardiogram, M-Mode, Doppler, Color Doppler. Procedure Date Date: 06/24/2022 Start: 09:47 AM Study Location: [facility] Indications:Abnormal ECG. History / Tech. Comments: Abn [...] Wall E' velocity:0.13 m/s Lateral Wall E/E':9.8 [facility] Work Phone: [facility] Work Phone: Glucose, Whole Bloodon 06-24 Glucose [Mass/Vol] 114 mg/dL High 74 - 100 mg/dL [facility] Interpretation and review of laboratory results Abnormal [facility] Hemoglobin and Hematocriton 06-24-2022 Hematocrit (Bld) [Volume fraction] 25.1 % Low 40.7 - 50.3 % [facility] Hemoglobin (Bld) [Mass/Vol] 7.8 g/dL Low 13.0 - 17.0 g/dL [facility] Interpretation and review of laboratory results Abnormal [facility] Hgb/Hcton 06-24-2022 Hematocrit (Bld) [Volume fraction] 25.1 % Low 40.7-50.3 [facility] Comment on above: Performed By: #### C FIFI, CDP #### [facility] [address] [place] [address] [employer] Technician: Khadar Tang MD Hemoglobin (Bld) [Mass/Vol] 7.8 g/dL Low 13.0-17.0 [facility] Comment on above: Performed By: #### C MPX, CDP #### [facility] [address] [place], [place] [id number] [employer] Technician: Khadar Tang MD Iron Binding Cap.on 06-25-19 23 % Fe Saturation 19 % Low 20-55 [facility] Comment on above: Performed By: #### C MPX, CDP #### [facility] [address] [place], [place] [id number] [employer] Technician: Khadar Tang MD Iron [Mass/Vol] 33 ug/dL Low 59-158 [facility] Comment on above: Performed By: #### C MPX, CDP #### [facility] [address] [place], [place] [address] [employer] Technician: Khadar Tang MD Total Fe Binding Cap 175 ug/dL Low 250-450 [facility] Comment on above: Performed By: #### C MPX, CDP #### [address] [place], [place] [address] [employer] Technician: Khadar Tang MD Unbound Fe Bind Cap 142 ug/dL Normal 112-347 [facility] Comment on above: Performed By: #### C MPX, CDP #### [facility] [address] [place], [place] [id number] [employer] Technician: Khadar Tang MD Iron and TIBCon 06-24-2022 Interpretation and review of laboratory results Abnormal [facility] Iron [Mass/Vol] 33 ug/dL Low 59 - 158 ug/dL [facility] Iron binding capacity [Mass/Vol] 175 ug/dL Low 250 - 450 ug/dL [facility] Iron Saturation 19 % Low 20 - 55 % [facility] UIBC 142 ug/dL 112 - 347 ug/dL [facility] Laboratory - Microbiology an d Antimicrobial susceptibilityon 06-24-2022 Microorganism or agent identified Nom (Unsp spec) Positive Abnormal [facility] Lipid Panelon 06-24-2022 Cholesterol [Mass/Vol] 147 mg/dL NINF - 200 mg/dL [facility] Comment on above: Cholesterol Guidelines: <200 Desirable 200-240 Borderline >240 Undesirable Cholesterol in HDL [Mass/Vol] 28 mg/dL Low 40 - PINF mg/dL [facility] Comment on above: HDL Guidelines: <40 Undesirable 40-59 Borderline >59 Desirable Cholesterol in LDL [Mass/Vol] 98 mg/dL 0 - 130 mg/dL [facility] Comment on above: LDL Guidelines: <100 Desirable 100-129 Near to/above Desirable 130-159 Borderline >159 Undesirable Direct (measured) LDL and calculated LDL are not interchangeable tests. Cholesterol.total/Cho lesterol in HDL [Mass ratio] 5.3 {ratio} High NINF - 5 [facility] Interpretation and review of laboratory results Abnormal [facility] Triglyceride [Mass/Vol] 107 mg/dL NINF - 150 mg/dL [facility] Comment on above: Triglyceride Guidelines: <150 Desirable 150-199 Borderline 200-499 High >499 Very high Based on AHA Guidelines for fasting triglyceride, December 2011. [facility] Lipid Profileon 06-24-2022 Cholesterol [Mass/Vol] 147 mg/dL Normal <200 [facility] Comment on above: Result Comment: Cholesterol Guidelines: <200 Desirable 200-240 Borderline >240 Undesirable Performed By: #### T BRENDA #### [facility] [address] [place] [address] [employer] Technician: Khadar Tang MD Cholesterol in HDL [Mass/Vol] 28 mg/dL Low >40 [facility] Comment on above: Result Comment: HDL Guidelines: <40 Undesirable 40-59 Borderline >59 Desirable Performed By: #### T CINDYI #### [facility] [address] [place] [address] [employer] Technician: Khadar Tang MD Cholesterol in LDL [Mass/Vol] 98 mg/dL Normal 0-130 [facility] Comment on above: Result Comment: LDL Guidelines: <100 Desirable 100-129 Near to/above Desirable 130-159 Borderline >159 Undesirable Direct (measured) LDL and calculated LDL are not interchangeable tests. Performed By: #### T BRENDA #### [facility] [address] [place] [address] [employer] Technician: Khadar Tang MD Cholesterol.total/Cho lesterol in HDL [Mass ratio] 5.3 {ratio} High <5 [facility] Comment on above: Performed By: #### T CINDYI #### [facility] [address] [place], [facility] [employer] Technician: Khadar Tang MD Triglyceride [Mass/Vol] 107 mg/dL Normal <150 [facility] Comment on above: Result Comment: Triglyceride Guidelines: <150 Desirable 150-199 Borderline 200-499 High >499 Very high Based on AHA Guidelines for fasting triglyceride, December 2011. Performed By: #### T BRENDA #### [facility] [address] [place], [facility] [employer] Technician: Khadar Tang MD PTon 06-24-2022 INR Coag (PPP) [Relative time] 1.1 {INR} Normal [facility] Comment on above: Result Comment: Therapeutic Range: Moderate Anticoagulant Intensity: INR = 2.0-3.0 High Anticoagulant Intensity: INR = 2.5-3.5 Performed By: #### C FIFI, CDP #### [address] [place], [facility] [employer] Technician: Khadar Tang MD PT Coag (PPP) [Time] 14.8 s Normal 11.9-14.8 [facility] Comment on above: Performed By: #### C FIFI, CDP #### [address] [place] [address] [employer] Technician: Khadar Tang MD PTTon 06-24-2022 aPTT Coag (Bld) [Time] 35.6 s High [facility] Comment on above: IV Heparin Therapy Range: 62.0-94.0 Interpretation and review of laboratory results Abnormal [facility] Protime-INRon 06-24-2022 INR Coag (PPP) [Relative time] 1.1 {INR} [facility] Comment on above: Therapeutic Range: Moderate Anticoagulant Intensity: INR = 2.0-3.0 High Anticoagulant Intensity: INR = 2.5-3.5 PT Coag (PPP) [Time] 14.8 s [facility] Troponinon 06-24-2022 Troponin, High Sens 57 ng/L Critically high 0-22 [facility] Comment on above: Result Comment: High Sensitivity Troponin values cannot be compared with other Troponin methodologies. Performed By: #### C MPX, CDP #### [facility] [address] [place] [address] [place] [address] [employer] Technician: Khadar Tang MD Interpretation and review of laboratory results Abnormal [facility] Troponin I.cardiac DL <= 0.01 ng/mL [Mass/Vol] 57 ng/L Critically high 0 - 22 ng/L [facility] Comment on above: High Sensitivity Tro ponin values cannot be compared with other Troponin methodologies. [facility] Troponin, High Sens 58 ng/L Critically high 0-22 [facility] Comment on above: Result Comment: High Sensitivity Troponin values cannot be compared with other Troponin methodologies. Performed By: #### T ROPI #### [facility] [address] [place] [address] [employer] Technician: Khadar Tang MD Interpretation and review of laboratory results Abnormal [facility] Troponin I.cardiac DL <= 0.01 ng/mL [Mass/Vol] 58 ng/L Critically high 0 - 22 ng/L [facility] Comment on above: High Sensitivity Tro ponin values cannot be compared with other Troponin methodologies. [facility] Troponin, High Sens 59 ng/L Critically high 0-22 [facility] Comment on above: Result Comment: High Sensitivity Troponin values cannot be compared with other Troponin methodologies. Performed By: #### C MPX, CDP #### [facility] [address] [place] [address] [employer] Technician: Khadar Tang MD Interpretation and review of laboratory results Abnormal [facility] Troponin I.cardiac DL <= 0.01 ng/mL [Mass/Vol] 59 ng/L Critically high 0 - 22 ng/L [facility] Comment on above: High Sensitivity Tro ponin values cannot be compared with other Troponin methodologies. [facility] Type + Screenon 06-24-2022 Type + Screen Sample Expiration 06/27/2022,2359 Arm Band Number [id number] ABO/Rh(D) A NEGATIVE Antibody Screen NEGATIVE Unit Number [id number] Blood Component Type Leukocyte Reduced Red Cell Unit Division 00 Status of Unit TRANSFUSED Transfusion Status OK TO TRANSFUSE Crossmatch Result COMPATIBLE Normal [facility] Comment on above: Performed By: #### C MARGARITO CALIX #### [facility] [address] [place] [address] [employer] Service Technician: Khadar Tang MD Vitamin B12 & Folateon 06-24 Cobalamin (Vitamin B12) [Mass/Vol] 446 pg/mL 232 - 1245 pg/mL [facility] Folate [Mass/Vol] 8.2 ng/mL 4.8 - PINF ng/mL [facility] CBC auto differentialon 05-28 Absolute Eos # 0.65 High H[place]Y S [facility] Absolute Immature Granulocyte 0.06 [facility] Absolute Lymph # 1.94 [facility] Absolute [place] # 0.72 [facility] Basophils (Bld) [#/Vol] 0.04 10*3/uL [facility] Basophils/100 WBC (Bld) 0 % 0 - 2 % [facility] Eosinophils/100 WBC (Bld) 7 % High 1 - 4 % [facility] Hematocrit (Bld) [Volume fraction] 25.0 % Low 40.7 - 50.3 % [facility] Hemoglobin (Bld) [Mass/Vol] 7.5 g/dL Low 13.0 - 17.0 g/dL [facility] Immature granulocytes/100 WBC (Bld) 1 % High 0 [facility] Interpretation and review of laboratory results Abnormal [facility] Lymphocytes/100 WBC (Bld) 22 % Low 24 - 43 % [facility] MCH (RBC) [Entitic mass] 23.3 pg Low 25.2 - 33.5 pg [facility] MCHC (RBC) [Mass/Vol] 30.0 g/dL 28.4 - 34.8 g/dL [facility] MCV (RBC) [Entitic vol] 77.6 fL Low 82.6 - 102.9 fL [facility] Monocytes/100 WBC (Bld) 8 % 3 - 12 % [facility] NRBC Automated 0.0 0.0 per 100 WBC [facility] Platelet distribution width (Bld) [Ratio] 16.4 % High 11.8 - 14.4 % [facility] Platelet mean volume (Bld) [Entitic vol] 8.7 fL 8.1 - 13.5 fL [facility] Platelets (Bld) [#/Vol] 263 10*3/uL [facility] RBC (Bld) [#/Vol] 3.22 10*6/uL Low 4.21 - 5.77 m/uL [facility] Segmented neutrophils/100 WBC (Bld) 62 % 36 - 65 % [facility] Segs Absolute 5.55 [facility] WBC (Bld) [#/Vol] 9.0 10*3/uL [facility] CBC with Diffon 06-23-2022 Abs. Basophil 0.04 k/uL Normal 0.00-0.20 [facility] Comment on above: Performed By: #### C FIFI, CDP #### [facility] [address] [place] [place] [address] [employer] Technician: Khadar Tang MD Abs.Imm.Granulocyte 0.06 k/uL Normal 0.00-0.30 [facility] Comment on above: Performed By: #### C FIFI, CDP #### [facility] [address] [place] [address] [address] [place], [place] [id number] [employer] Technician: Khadar Tang MD Abs.Neutrophil (Seg) 5.55 k/uL Normal 1.50-8.10 [facility] Comment on above: Performed By: #### C MPX, CDP #### [address] [place], [place] [address] [employer] Technician: Khadar Tang MD Basophils/100 WBC (Bld) 0 % Normal 0-2 [facility] Comment on above: Performed By: #### C MPX, CDP #### [address] [place], [place] [address] [employer] Technician: Khadar Tang MD Eosinophils (Bld) [#/Vol] 0.65 10*3/uL High 0.00-0.44 [facility] Comment on above: Performed By: #### C MPX, CDP #### [address] [place], [facility]83 [employer] Technician: Khadar Tang MD Eosinophils/100 WBC (Bld) 7 % High 1-4 [facility] Comment on above: Performed By: #### C MPX, CDP #### [address] [place], [facility]83 [employer] Technician: Khadar Tang MD Erythrocyte distribution width (RBC) [Ratio] 16.4 % High 11.8-14.4 [facility] Comment on above: Performed By: #### C MPX, CDP #### [address] [place], [place] [address] [employer] Technician: Khadar Tang MD Hematocrit (Bld) [Volume fraction] 25.0 % Low 40.7-50.3 [facility] Comment on above: Performed By: #### C MPX, CDP #### [address] [place], [facility]83 [employer] Technician: Khadar Tang MD Hemoglobin (Bld) [Mass/Vol] 7.5 g/dL Low 13.0-17.0 [facility] Comment on above: Performed By: #### C MPX, CDP #### [facility] [address] [place] [address] [employer] Service Technician: Khadar Tang MD Immature granulocytes/100 WBC (Bld) 1 % High 0 [facility] Comment on above: Performed By: #### C MPX, CDP #### [facility] [address] [place], [place] [id number] [employer] Technician: Khadar Tang MD Lymphocytes (Bld) [#/Vol] 1.94 10*3/uL Normal 1.10-3.70 [facility] Comment on above: Performed By: #### C MPX, CDP #### [address] [place], [place] [address] [employer] Service Technician: Khadar Tang MD Lymphocytes/100 WBC (Bld) 22 % Low 24-43 [facility] Comment on above: Performed By: #### C MPX, CDP #### [address] [place], [place] [address]83 [employer] Service Technician: Khadar Tang MD MCH (RBC) [Entitic mass] 23.3 pg Low 25.2-33.5 [facility] Comment on above: Performed By: #### C MPX, CDP #### [facility] [address] [place] [address] [place]. [place], [place] [id number] [employer] Service Technician: Khadar Tang MD MCHC (RBC) [Mass/Vol] 30.0 g/dL Normal 28.4-34.8 [facility] Comment on above: Performed By: #### C MPX, CDP #### [facility] [address] [place] [address] [place] [address] Wind Turbine Service Technician: Khadar Tang MD MCV (RBC) [Entitic vol] 77.6 fL Low 82.6-102.9 [facility] Comment on above: Performed By: #### C MPX, CDP #### [facility] [address] [place] [address] [employer] Turbine Service Technician: Khadar Tang MD Monocytes (Bld) [#/Vol] 0.72 10*3/uL Normal 0.10-1.20 [facility] Comment on above: Performed By: #### C MPX, CDP #### [facility] [address] [place], [place] [address] [employer] Service Technician: Khadar Tang MD Monocytes/100 WBC (Bld) 8 % Normal 3-12 [facility] Comment on above: Performed By: #### C MPX, CDP #### [facility] [address] [place], [place] [address] [employer] Technician: Khadar Tang MD Neutrophil (Seg) 62 % Normal 36-65 [facility] Comment on above: Performed By: #### C MPX, CDP #### [facility] [address] [place], [place] [address]83 [employer]ine Service Technician: Khadar Tang MD NRBC Automated 0.0 per 100 WBC Normal 0.0 [facility] Comment on above: Performed By: #### C MPX, CDP #### [facility] [address] [place] [address] [place] [place], [place] 1877383 [employer] Technician: Khadar Tang MD Platelet mean volume (Bld) [Entitic vol] 8.7 fL Normal 8.1-13.5 [facility] Comment on above: Performed By: #### C MPX, CDP #### [facility] [address] [place] [address] [employer] Service Technician: Khadar Tang MD Platelets (Bld) [#/Vol] 263 10*3/uL Normal 138-453 [facility] Comment on above: Performed By: #### C MPX, CDP #### [facility] [address] [place], [place] [id number] [employer] Service Technician: Khadar Tang MD RBC (Bld) [#/Vol] 3.22 10*6/uL Low 4.21-5.77 [facility] Comment on above: Performed By: #### C MPX, CDP #### [facility] [address] [place], [place] [address]83 [employer] Technician: Khadar Tang MD WBC (Bld) [#/Vol] 9.0 10*3/uL Normal 3.5-11.3 [facility] Comment on above: Performed By: #### C MPX, CDP #### [address] [place] [address] [employer] Turbine Service Technician: Khadar Tang MD Comp Metabolic Pr/rfx MGon 0 - Albumin [Mass/Vol] 2.9 g/dL Low 3.5-5.2 [facility] Comment on above: Performed By: #### C MPX, CDP #### [facility] [address] [place] [address] [address] [place], [place] [id number] [employer] Service Technician: Khadar Tang MD Albumin/Glob Ratio 0.7 Low 1.0-2.5 [facility] Comment on above: Performed By: #### C MPX, CDP #### [facility] [address] [place], [place] [id number] [employer]ine Service Technician: Khadar Tang MD Alkaline Phos 89 U/L Normal 40-129 [facility] Comment on above: Performed By: #### C MPX, CDP #### [facility] [address] [place] [address] [employer] Turbine Service Technician: Khadar Tang MD ALT [Catalytic activity/Vol] 11 U/L Normal 5-41 [facility] Comment on above: Performed By: #### C MPX, CDP #### [facility] [address] [place], [place] [address] [employer] Technician: Khadar Tang MD Anion gap [Moles/Vol] 8 mmol/L Low 9-17 [facility] Comment on above: Performed By: #### C MPX, CDP #### [facility] [address] [place], [place] [address] [employer] Service Technician: Khadar Tang MD AST [Catalytic activity/Vol] 12 U/L Normal <40 [facility] Comment on above: Performed By: #### C MPX, CDP #### [facility] [address] [place], [place] [address]37783 [employer] Service Technician: Khadar Tang MD Bilirubin [Mass/Vol] 0.2 mg/dL Low 0.3-1.2 [facility] Comment on above: Performed By: #### C MPX, CDP #### [facility] [address] [place], [place] [address]83 [employer] Service Technician: Khadar Tang MD BUN/CRE Ratio 25 High 9-20 [facility] Comment on above: Performed By: #### C MPX, CDP #### [facility] [address] [place] [address] [place] [place], [place] [address] [employer] Service Technician: Khadar Tang MD Calcium [Mass/Vol] 9.0 mg/dL Normal 8.6-10.4 [facility] Comment on above: Performed By: #### C MPX, CDP #### [facility] [address] [place], [place] [id number] [employer] Technician: Khadar Tang MD Chloride [Moles/Vol] 115 mmol/L High 98-107 [facility] Comment on above: Performed By: #### C MPX, CDP #### [facility] [facility] [address] [place], [place] [id number] [employer] Technician: Khadar Tang MD CO2 [Moles/Vol] 17 mmol/L Low 20-31 [facility] Comment on above: Performed By: #### C MPX, CDP #### [facility] [address] [place] [address] [employer] Technician: Khadar Tang MD Creatinine [Mass/Vol] 1.55 mg/dL High 0.70-1.20 [facility] Comment on above: Performed By: #### C MPX, CDP #### [facility] [address] [place] [address] [employer] Technician: Khadar Tang MD GFR/1.73 sq M.predicted among non-blacks MDRD (S/P/Bld) [Vol rate/Area] 51 mL/min/{1.73_m2} Low >60 [facility] Comment on above: Result Comment: These results [...] Performed By: #### C MPX, CDP #### [facility] [address] [place] [address] [employer] Technician: Khadar Tang MD Glucose [Mass/Vol] 119 mg/dL High 70-99 [facility] Comment on above: Performed By: #### C MPX, CDP #### [facility] [address] [place] [address] [employer] Technician: Khadar Tang MD Potassium [Moles/Vol] 5.4 mmol/L High 3.7-5.3 [facility] Comment on above: Performed By: #### C MPX, CDP #### [facility] [address] [place] [address] [employer] Technician: Khadar Tang MD Protein [Mass/Vol] 7.1 g/dL Normal 6.4-8.3 [facility] Comment on above: Performed By: #### C MPX, CDP #### [facility] [address] [place] [address] [employer] Technician: Khadar Tang MD Sodium [Moles/Vol] 140 mmol/L Normal 135-144 [facility] Comment on above: Performed By: #### C MPX, CDP #### [facility] [address] [place] [address] [employer] Technician: Khadar Tang MD Urea nitrogen [Mass/Vol] 38 mg/dL High 8-23 [facility] Comment on above: Performed By: #### C MPX, CDP #### [facility] [address] [place] [address] [employer] Technician: Khadar Tang MD Comprehensive Metabolic Pane l w/ Reflex to MGon 06-23-2022 Albumin [Mass/Vol] 2.9 g/dL Low 3.5 - 5.2 g/dL [facility] Albumin/Globulin [Mass ratio] 0.7 {ratio} Low 1.0 - 2.5 [facility] ALP [Catalytic activity/Vol] 89 U/L 40 - 129 U/L [facility] ALT [Catalytic activity/Vol] 11 U/L 5 - 41 U/L [facility] Anion gap [Moles/Vol] 8 mmol/L Low 9 - 17 mmol/L [facility] AST [Catalytic activity/Vol] 12 U/L NINF - 40 U/L [facility] Bilirubin [Mass/Vol] 0.2 mg/dL Low 0.3 - 1 .2 mg/dL [facility] Calcium [Mass/Vol] 9.0 mg/dL 8.6 - 10. 4 mg/dL [facility] Chloride [Moles/Vol] 115 mmol/L High 98 - 10 7 mmol/L [facility] CO2 [Moles/Vol] 17 mmol/L Low 20 - 31 mmol/L [facility] Creatinine [Mass/Vol] 1.55 mg/dL High 0.70 - 1.20 mg/dL [facility] GFR/1.73 sq M.predicted MDRD (S/P/Bld) [Vol rate/Area] 51 mL/min/{1.73_m2} Low - PINF [facility] Comment on above: These results are not [...] 119 mg/dL High 70 - 99 mg/dL [facility] Interpretation and review of laboratory results Abnormal [facility] Potassium [Moles/Vol] 5.4 mmol/L High 3.7 - 5.3 mmol/L [facility] Protein [Mass/Vol] 7.1 g/dL 6.4 - 8.3 g/dL [facility] Sodium [Moles/Vol] 140 mmol/L 135 - 144 mmol/L [facility] Urea nitrogen [Mass/Vol] 38 mg/dL High 8 - 23 mg/dL [facility] Urea nitrogen/Creatinine (Bld) [Mass ratio] 25 High 9 - 20 [facility] EKG 12 LeadOrdered By: Michelle de la rosa on 06-23-2022 Atrial Rate 60 BPM [facility] Work Phone: P [place] 55 degrees [facility] Work Phone: P-R Interval 182 ms [facility] Work Phone: Q-T Interval 388 ms [facility] Work Phone: QRS Duration 88 ms [facility] Work Phone: QTc Calculation (Bazett) 388 ms [facility] Work Phone: R [place] 15 degrees [facility] Work Phone: T [place] 40 degrees [facility] Work Phone: Ventricular Rate 60 BPM [facility] [employer] Work Phone: [facility] Work Phone: EKG 12 Leadon 06-23-2022 Poor data qualit y, interpretation may be adversely affected Normal sinus rhythm Normal ECG When compared with ECG of 22-JUN-2022 13:14, (unconfirmed) Borderline criteria for Anterolateral infarct are no longer Present Criteria for Inferior infarct are no longer Present T wave inversion no longer evident in Inferior leads Confirmed by Michelle Noe MD ([id number]) on 06/23/2022 3:18:16 PM [facility] RADIOLOGY Michelle Noe MD - 06/23/2022 Poor data quality, interpretation may be adversely affected Normal sinus rhythm Normal ECG When compared with ECG of 22-JUN-2022 13:14, (unconfirmed) Borderline criteria for Anterolateral infarct are no longer Present Criteria for Inferior infarct are no longer Present T wave inversion no longer evident in Inferior leads Confirmed by Michelle Noe MD ([id number]) on 06/23/2022 3:18:16 PM [facility] Work Phone: EKG Rhythm Stripon 3 [facility] Glucose, Whole Bloodon 06-23 Glucose [Mass/Vol] 230 mg/dL High 74 - 100 mg/dL [facility] Interpretation and review of laboratory results Abnormal [facility] Urinalysison 06-23-2022 Bilirubin Urine Negative NEGATIVE [facility] Color, UA Yellow Yellow [facility] Glucose Auto test strip (U) [Mass/Vol] Negative NEGATIVE [facility] Ketones (U) [Mass/Vol] Negative NEGATIVE [facility] Leukocyte esterase Auto test strip Ql (U) Negative NEGATIVE [facility] Nitrite Auto test strip Ql (U) Negative NEGATIVE [facility] Protein (U) [Mass/Vol] 6.0 mg/dL 5.0 - 9.0 [facility] Protein (U) [Mass/Vol] Negative NEGATIVE [facility] Specific [place], UA 1.020 1.010 - 1.020 [facility] Turbidity UA Clear Clear [facility] Urine Hgb Negative NEGATIVE [facility] Urobilinogen, Urine Normal Normal [facility] Urinalysis, Routineon 2022 Bilirubin, SemiQt,Ur Negative Normal NEG [facility] Comment on above: Performed By: #### U A #### [facility] [address] [place] [address] [employer] Technician: Khadar Tang MD Blood, Urine Negative Normal NEG [facility] Comment on above: Performed By: #### U A #### [facility] [address] [place] [address] [employer] Technician: Khadar Tang MD Clarity (U) Clear Normal CLEAR [facility] Comment on above: Performed By: #### U A #### [facility] [address] [place], [facility] [employer] Technician: Khadar Tang MD Color (U) Yellow Normal YEL [facility] Comment on above: Performed By: #### U A #### [facility] [address] [place], [facility] [employer] Technician: Khadar Tang MD Glucose Ql (U) Negative Normal NEG [facility] Comment on above: Performed By: #### U A #### [facility] [address] [place] [address] [employer] Technician: Khadar Tang MD Ketones Ql (U) Negative Normal NEG [facility] Comment on above: Performed By: #### U A #### [facility] [address] [place] [address] [employer] Technician: Khadar Tang MD Leukocyte esterase Test strip Ql (U) Negative Normal NEG [facility] Comment on above: Performed By: #### U A #### [facility] [address] [place] [address] Dr. [place], [place] [id number] [employer] Technician: Khadar Tang MD Nitrite,Ur Negative Normal NEG [facility] Comment on above: Performed By: #### U A #### [facility] [address] [place] [address] Dr. [place], [place] [id number] [employer] Technician: Khadar Tang MD PH,Ur 6.0 Normal 5.0-9.0 [facility] Comment on above: Performed By: #### U A #### [address] [place], [place] [address] [employer] Technician: Khadar Tang MD Protein Ql (U) Negative Normal NEG [facility] Comment on above: Performed By: #### U A #### [address] [place], [place] [id number] [employer] Technician: Khadar Tang MD Spec. [place],Ur 1.020 Normal 1.010-1.02 0 [facility] Comment on above: Performed By: #### U A #### [address] [place], [place] [address]83 [employer] Technician: Khadar Tang MD Urobilinogen,Ur Normal Normal NORM [facility] Comment on above: Performed By: #### U A #### [address] [place], [place] [id number] [employer] Technician: Khadar Tang MD XR ANKLE RIGHT (MIN [...] Derrick [place] MD 06/23/22 Final result Normal [facility] 1. Nonspecific diffu se subcutaneous edema. 2. Periostitis at the lateral aspect of the fibula distally. There was osteomyelitis in this region previously. This could reflect chronic osteomyelitis. Elsewhere, there is no subcutaneous air or evidence of osteomyelitis. [facility] EXAMINATION: THREE XRAY VIEWS OF THE [...] lesion is noted. Calcaneal spurring appears unchanged. [facility] Derrick Squires MD - 06/23/2022 EXAMINATION: [...] no subcutaneous air or evidence of osteomyelitis. [facility] Work Phone: Radiology Study observation (narrative) [employer] Phone: XR ANKLE RIGHT (MIN 3 VIEWS) Ordered By: Derrick [place] on 06-23-2022 [facility] Work Phone: Basic Metabolic Panelon 05-28 Anion gap [Moles/Vol] 9 mmol/L 9 - 17 mmol/L [facility] Calcium [Mass/Vol] 9.5 mg/dL 8.6 - 10. 4 mg/dL [facility] Chloride [Moles/Vol] 112 mmol/L High 98 - 10 7 mmol/L [facility] CO2 [Moles/Vol] 17 mmol/L Low 20 - 31 mmol/L [facility] Creatinine [Mass/Vol] 2 mg/dL High 0.70 - 1.20 mg/dL [facility] GFR/1.73 sq M.predicted MDRD (S/P/Bld) [Vol rate/Area] 38 mL/min/{1.73_m2} Low - PINF [facility] Comment on above: These results are not [...] 137 mg/dL High 70 - 99 mg/dL [facility] Interpretation and review of laboratory results Abnormal [facility] Potassium [Moles/Vol] 6.1 mmol/L Critically high 3.7 - 5.3 mmol/L [facility] Sodium [Moles/Vol] 138 mmol/L 135 - 144 mmol/L [facility] Urea nitrogen [Mass/Vol] 45 mg/dL High 8 - 23 mg/dL [facility] Urea nitrogen/Creatinine (Bld) [Mass ratio] 23 High 9 - 20 [facility] Basic Metabolic Profon 06-22 Potassium [Moles/Vol] 6.1 mmol/L Critically high 3.7-5.3 [facility] Comment on above: Performed By: #### T ROPI #### [facility] [address] [place], [place] [id number] [employer] Technician: Khadar Tang MD Anion gap [Moles/Vol] 9 mmol/L Normal 9-17 [facility] Comment on above: Performed By: #### T ROPI #### [facility] [address] [place], [place] [address] [employer] Technician: Khadar Tang MD BUN/CRE Ratio 23 High 9-20 [facility] Comment on above: Performed By: #### T ROPI #### [facility] [address] [place], [place] [address]383 [employer] Technician: Khadar Tang MD Calcium [Mass/Vol] 9.5 mg/dL Normal 8.6-10.4 [facility] Comment on above: Performed By: #### T ROPI #### [facility] [address] [place], [place] [address] [employer] Technician: Khadar Tang MD Chloride [Moles/Vol] 112 mmol/L High 98-107 [facility] Comment on above: Performed By: #### T ROPI #### [facility] [address] [place], [place] [address] [employer] Technician: Khadar Tang MD CO2 [Moles/Vol] 17 mmol/L Low 20-31 [facility] Comment on above: Performed By: #### T ROPI #### [facility] [address] [place] [address] [employer] Technician: Khadar Tang MD Creatinine [Mass/Vol] 2.00 mg/dL High 0.70-1.20 [facility] Comment on above: Performed By: #### T ROPI #### [facility] [address] [place] [address] [employer] Technician: Khadar Tang MD GFR/1.73 sq M.predicted among non-blacks MDRD (S/P/Bld) [Vol rate/Area] 38 mL/min/{1.73_m2} Low >60 [facility] Comment on above: Result Comment: These results [...] secretion. Performed By: #### T ROPI #### [facility] [address] [place] [address] [employer] Technician: Khadar Tang MD Glucose [Mass/Vol] 137 mg/dL High 70-99 [facility] Comment on above: Performed By: #### T ROPI #### [facility] [address] [place] [address] [employer] Technician: Khadar Tang MD Sodium [Moles/Vol] 138 mmol/L Normal 135-144 [facility] Comment on above: Performed By: #### T ROPI #### [facility] [address] [place], [place] [address] [employer] Technician: Khadar Tang MD Urea nitrogen [Mass/Vol] 45 mg/dL High 8-23 [facility] Comment on above: Performed By: #### T ROPI #### [facility] [address] [place] [address] [employer] Technician: Khadar Tang MD CBC with Auto Differentialon 06-22-2022 Absolute Eos # 0.86 High [facility] Absolute Immature Granulocyte 0.09 [facility] Absolute Lymph # 1.97 [facility] Absolute [place] # 0.88 [facility] Basophils (Bld) [#/Vol] 0.05 10*3/uL [facility] Basophils/100 WBC (Bld) 0 % 0 - 2 % [facility] Eosinophils/100 WBC (Bld) 7 % High 1 - 4 % [facility] Hematocrit (Bld) [Volume fraction] 27.6 % Low 40.7 - 50.3 % [facility] Hemoglobin (Bld) [Mass/Vol] 8.3 g/dL Low 13.0 - 17.0 g/dL [facility] Immature granulocytes/100 WBC (Bld) 1 % High 0 [facility] Interpretation and review of laboratory results Abnormal [facility] Lymphocytes/100 WBC (Bld) 15 % Low 24 - 43 % [facility] MCH (RBC) [Entitic mass] 23.3 pg Low 25.2 - 33.5 pg [facility] MCHC (RBC) [Mass/Vol] 30.1 g/dL 28.4 - 34.8 g/dL [facility] MCV (RBC) [Entitic vol] 77.5 fL Low 82.6 - 102.9 fL [facility] Monocytes/100 WBC (Bld) 7 % 3 - 12 % [facility] NRBC Automated 0.0 0.0 per 100 WBC [facility] Platelet distribution width (Bld) [Ratio] 16.2 % High 11.8 - 14.4 % [facility] Platelet mean volume (Bld) [Entitic vol] 8.6 fL 8.1 - 13.5 fL [facility] Platelets (Bld) [#/Vol] 338 10*3/uL [facility] RBC (Bld) [#/Vol] 3.56 10*6/uL Low 4.21 - 5.77 m/uL [facility] Segmented neutrophils/100 WBC (Bld) 70 % High 36 - 65 % [facility] Segs Absolute 8.91 High [facility] WBC (Bld) [#/Vol] 12.8 10*3/uL High [facility] Absolute Eos # 0.84 High [facility] Absolute Immature Granulocyte 0.06 [facility] Absolute Lymph # 1.69 [facility] Absolute [place] # 0.82 [facility] Basophils (Bld) [#/Vol] 0.04 10*3/uL [facility] Basophils/100 WBC (Bld) 0 % 0 - 2 % [facility] Eosinophils/100 WBC (Bld) 7 % High 1 - 4 % [facility] Hematocrit (Bld) [Volume fraction] 27.1 % Low 40.7 - 50.3 % [facility] Hemoglobin (Bld) [Mass/Vol] 8.7 g/dL Low 13.0 - 17.0 g/dL [facility] Immature granulocytes/100 WBC (Bld) 1 % High 0 [facility] Interpretation and review of laboratory results Abnormal [facility] Lymphocytes/100 WBC (Bld) 14 % Low 24 - 43 % [facility] MCH (RBC) [Entitic mass] 25.3 pg 25.2 - 33.5 pg [facility] MCHC (RBC) [Mass/Vol] 32.1 g/dL 28.4 - 34.8 g/dL [facility] MCV (RBC) [Entitic vol] 78.8 fL Low 82.6 - 102.9 fL [facility] Monocytes/100 WBC (Bld) 7 % 3 - 12 % [facility] NRBC Automated 0.0 0.0 per 100 WBC [facility] Platelet distribution width (Bld) [Ratio] 16.4 % High 11.8 - 14.4 % [facility] Platelet mean volume (Bld) [Entitic vol] 9.4 fL 8.1 - 13.5 fL [facility] Platelets (Bld) [#/Vol] 345 10*3/uL [facility] RBC (Bld) [#/Vol] 3.44 10*6/uL Low 4.21 - 5.77 m/uL [facility] Segmented neutrophils/100 WBC (Bld) 71 % High 36 - 65 % [facility] Segs Absolute 9.06 High [facility] WBC (Bld) [#/Vol] 12.5 10*3/uL High [facility] CBC with Diffon 06-22-2022 Abs. Basophil 0.05 k/uL Normal 0.00-0.20 [facility] Comment on above: Performed By: #### C DP, MG, CP #### [facility] [address] [place] [address] [employer] Technician: Khadar Tang MD Abs.Imm.Granulocyte 0.09 k/uL Normal 0.00-0.30 [facility] Comment on above: Performed By: #### C DP, MG, CP #### [address] [place] [address] [employer] Technician: Khadar Tang MD Abs.Neutrophil (Seg) 8.91 k/uL High 1.50-8.10 [facility] Comment on above: Performed By: #### C DP, MG, CP #### [facility] [address] [place] [address] [place] [address] [employer] Technician: Khadar Tang MD Basophils/100 WBC (Bld) 0 % Normal 0-2 [facility] Comment on above: Performed By: #### C DP, MG, CP #### [address] [place] [id number] [employer] Technician: Khadar Tang MD Eosinophils (Bld) [#/Vol] 0.86 10*3/uL High 0.00-0.44 [facility] Comment on above: Performed By: #### C DP, MG, CP #### [facility] [address] [place] [address] [place] [address] [employer] Technician: Khadar Tang MD Eosinophils/100 WBC (Bld) 7 % High 1-4 [facility] Comment on above: Performed By: #### C DP, MG, CP #### [address] [place] [address] [employer] Technician: Khadar Tang MD Erythrocyte distribution width (RBC) [Ratio] 16.2 % High 11.8-14.4 [facility] Comment on above: Performed By: #### C DP, MG, CP #### [facility] [address] [place] [address] [employer] Technician: Khadar Tang MD Hematocrit (Bld) [Volume fraction] 27.6 % Low 40.7-50.3 [facility] Comment on above: Performed By: #### C DP, MG, CP #### [address] [place] [place] [address] [employer] Technician: Khadar Tang MD Hemoglobin (Bld) [Mass/Vol] 8.3 g/dL Low 13.0-17.0 [facility] Comment on above: Performed By: #### C DP, MG, CP #### [facility] [address] [place] [address] [place] [address] [employer] Technician: Khadar Tang MD Immature granulocytes/100 WBC (Bld) 1 % High 0 [facility] Comment on above: Performed By: #### C DP, MG, CP #### [address] [place] [place] [address] [employer] Technician: Khadar Tang MD Lymphocytes (Bld) [#/Vol] 1.97 10*3/uL Normal 1.10-3.70 [facility] Comment on above: Performed By: #### C DP, MG, CP #### [facility] [address] [place] [address] Dr. [place], [facility] [employer] Technician: Khadar Tang MD Lymphocytes/100 WBC (Bld) 15 % Low 24-43 [facility] Comment on above: Performed By: #### C DP, MG, CP #### [facility] [address] [place] [address] Dr. [place] [address] [employer] Technician: Khadar Tang MD MCH (RBC) [Entitic mass] 23.3 pg Low 25.2-33.5 [facility] Comment on above: Performed By: #### C DP, MG, CP #### [address] [place], [place] [address] [employer] Technician: Khadar Tang MD MCHC (RBC) [Mass/Vol] 30.1 g/dL Normal 28.4-34.8 [facility] Comment on above: Performed By: #### C DP, MG, CP #### [address] [place], [place] [address]995483 [employer] Technician: Khadar Tang MD MCV (RBC) [Entitic vol] 77.5 fL Low 82.6-102.9 [facility] Comment on above: Performed By: #### C DP, MG, CP #### [address] [place], [place] [address]65683 [employer] Technician: Khadar Tang MD Monocytes (Bld) [#/Vol] 0.88 10*3/uL Normal 0.10-1.20 [facility] Comment on above: Performed By: #### C DP, MG, CP #### [address] [place], [place] [address]83 [employer] Technician: Khadar Tang MD Monocytes/100 WBC (Bld) 7 % Normal 3-12 [facility] Comment on above: Performed By: #### C DP, MG, CP #### [facility] [address] [place] [address] Dr. [place], [place] 12[address]83 [employer] Technician: Khadar Tang MD Neutrophil (Seg) 70 % High 36-65 [facility] Comment on above: Performed By: #### C DP, MG, CP #### [facility] [address] [place] [address] Dr. [place], [place] [id number] [employer] Technician: Khadar Tang MD NRBC Automated 0.0 per 100 WBC Normal 0.0 [facility] Comment on above: Performed By: #### C DP, MG, CP #### [facility] [address] [place], [place] [address] [employer] Technician: Khadar Tang MD Platelet mean volume (Bld) [Entitic vol] 8.6 fL Normal 8.1-13.5 [facility] Comment on above: Performed By: #### C DP, MG, CP #### [facility] [address] [place], [place] [address] [employer] Technician: Khadar Tang MD Platelets (Bld) [#/Vol] 338 10*3/uL Normal 138-453 [facility] Comment on above: Performed By: #### C DP, MG, CP #### [address] [place] [place] [address] [employer] Technician: Khadar Tang MD RBC (Bld) [#/Vol] 3.56 10*6/uL Low 4.21-5.77 [facility] Comment on above: Performed By: #### C DP, MG, CP #### [address] [place] [place] [address] [employer] Technician: Khadar Tang MD WBC (Bld) [#/Vol] 12.8 10*3/uL High 3.5-11.3 [facility] Comment on above: Performed By: #### C DP, MG, CP #### [address] [place], [facility] [employer] Technician: Khadar Tang MD Abs. Basophil 0.04 k/uL Normal 0.00-0.20 [facility] Comment on above: Performed By: #### T ROPI #### [address] [place], [place] [address] [employer] Technician: Khadar Tang MD Abs.Imm.Granulocyte 0.06 k/uL Normal 0.00-0.30 [facility] Comment on above: Performed By: #### T ROPI #### [address] [place], [place] [address] [employer] Technician: Khadar Tang MD Abs.Neutrophil (Seg) 9.06 k/uL High 1.50-8.10 [facility] Comment on above: Performed By: #### T ROPI #### [address] [place], [place] [address] [employer] Technician: Khadar Tang MD Basophils/100 WBC (Bld) 0 % Normal 0-2 [facility] Comment on above: Performed By: #### T ROPI #### [address] [place] [address] [employer] Technician: Khadar Tang MD Eosinophils (Bld) [#/Vol] 0.84 10*3/uL High 0.00-0.44 [facility] Comment on above: Performed By: #### T ROPI #### [address] [address] Suárez, [place] [address] [employer] Technician: Khadar Tang MD Eosinophils/100 WBC (Bld) 7 % High 1-4 [facility] Comment on above: Performed By: #### T ROPI #### [address] Suárez, [place] [address] [employer] Technician: Khadar Tang MD Erythrocyte distribution width (RBC) [Ratio] 16.4 % High 11.8-14.4 [facility] Comment on above: Performed By: #### T ROPI #### [address] [place] [place] [address] [employer] Technician: Khadar Tang MD Hematocrit (Bld) [Volume fraction] 27.1 % Low 40.7-50.3 [facility] Comment on above: Performed By: #### T ROPI #### [address] [place] [id number] [employer] Technician: Khadar Tang MD Hemoglobin (Bld) [Mass/Vol] 8.7 g/dL Low 13.0-17.0 [facility] Comment on above: Performed By: #### T ROPI #### [facility] [address] [place] [address] Dr. Suárez, [place] [id number] [employer] Technician: Khadar Tang MD Immature granulocytes/100 WBC (Bld) 1 % High 0 [facility] Comment on above: Performed By: #### T ROPI #### [address] Suárez, [facility]83 [employer] Technician: Khadar Tang MD Lymphocytes (Bld) [#/Vol] 1.69 10*3/uL Normal 1.10-3.70 [facility] Comment on above: Performed By: #### T ROPI #### [address] Suárez, [facility]83 [employer] Technician: Khadar Tang MD Lymphocytes/100 WBC (Bld) 14 % Low 24-43 [facility] Comment on above: Performed By: #### T ROPI #### [address] Suárez, [facility]83 [employer] Technician: Khadar Tang MD MCH (RBC) [Entitic mass] 25.3 pg Normal 25.2-33.5 [facility] Comment on above: Performed By: #### T ROPI #### [address] Suráez, [facility]83 [employer] Technician: Khadar Tang MD MCHC (RBC) [Mass/Vol] 32.1 g/dL Normal 28.4-34.8 [facility] Comment on above: Performed By: #### T ROPI #### [address] Suárez, [place] [address]366883 [employer] Technician: Khadar Tang MD MCV (RBC) [Entitic vol] 78.8 fL Low 82.6-102.9 [facility] Comment on above: Performed By: #### T ROPI #### [facility] [address] Suárez, [place] 8[address]83 [employer] Technician: Khadar Tang MD Monocytes (Bld) [#/Vol] 0.82 10*3/uL Normal 0.10-1.20 [facility] Comment on above: Performed By: #### T ROPI #### [facility] [address] Suárez, [place] 1060083 [employer] Technician: Khadar Tang MD Monocytes/100 WBC (Bld) 7 % Normal 3-12 [facility] Comment on above: Performed By: #### T ROPI #### [address] Suárez, [place] 2903283 [employer] Technician: Khadar Tang MD Neutrophil (Seg) 71 % High 36-65 [facility] Comment on above: Performed By: #### T ROPI #### [facility] [address] Suárez, [place] 1274083 [employer] Technician: Khadar Tang MD NRBC Automated 0.0 per 100 WBC Normal 0.0 [facility] Comment on above: Performed By: #### T ROPI #### [address] Suárez, [facility]83 [employer] Technician: Khadar Tang MD Platelet mean volume (Bld) [Entitic vol] 9.4 fL Normal 8.1-13.5 [facility] Comment on above: Performed By: #### T ROPI #### [address] Suárez, [place] [id number] [employer] Technician: Khadar Tang MD Platelets (Bld) [#/Vol] 345 10*3/uL Normal 138-453 [facility] Comment on above: Performed By: #### T ROPI #### [facility] [address] [place] [address] [place] [address] [employer] Technician: Khadar Tang MD RBC (Bld) [#/Vol] 3.44 10*6/uL Low 4.21-5.77 [facility] Comment on above: Performed By: #### T ROPI #### [facility] [address] [place] [place] [address] [employer] Technician: Khadar Tang MD WBC (Bld) [#/Vol] 12.5 10*3/uL High 3.5-11.3 [facility] Comment on above: Performed By: #### T CINDYI #### [facility] [address] [place] [address] [employer] Technician: Khadar Tang MD [facility] Albumin [Mass/Vol] 3.2 g/dL Low 3.5 - 5.2 g/dL [facility] Albumin/Globulin [Mass ratio] 0.7 {ratio} Low 1.0 - 2.5 [facility] ALP [Catalytic activity/Vol] 101 U/L 40 - 129 U/L [facility] ALT [Catalytic activity/Vol] 8 U/L 5 - 41 U/L [facility] Anion gap [Moles/Vol] 11 mmol/L 9 - 17 mmol/L [facility] AST [Catalytic activity/Vol] 13 U/L NINF - 40 U/L [facility] Bilirubin [Mass/Vol] mg/dL Low 0.3 - 1 .2 mg/dL [facility] Calcium [Mass/Vol] 9.1 mg/dL 8.6 - 10. 4 mg/dL [facility] Chloride [Moles/Vol] 110 mmol/L High 98 - 10 7 mmol/L [facility] CO2 [Moles/Vol] 16 mmol/L Low 20 - 31 mmol/L [facility] Creatinine [Mass/Vol] 1.93 mg/dL High 0.70 - 1.20 mg/dL [facility] GFR/1.73 sq M.predicted MDRD (S/P/Bld) [Vol rate/Area] 39 mL/min/{1.73_m2} Low - PINF [facility] Comment on above: These results are not [...] 148 mg/dL High 70 - 99 mg/dL [facility] Interpretation and review of laboratory results Abnormal [facility] Potassium [Moles/Vol] 6.3 mmol/L Critically high 3.7 - 5.3 mmol/L [facility] Protein [Mass/Vol] 8.1 g/dL 6.4 - 8.3 g/dL [facility] Sodium [Moles/Vol] 137 mmol/L 135 - 144 mmol/L [facility] Urea nitrogen [Mass/Vol] 49 mg/dL High 8 - 23 mg/dL [facility] Urea nitrogen/Creatinine (Bld) [Mass ratio] 25 High 9 - 20 [facility] Comp Metabolic Profon 2022 Bilirubin [Mass/Vol] mg/dL Low 0.3-1.2 [facility] Comment on above: Performed By: #### C DP, MG, CP #### [facility] [address] [place] [address] [employer] Technician: Khadar Tang MD Potassium [Moles/Vol] 6.3 mmol/L Critically high 3.7-5.3 [facility] Comment on above: Performed By: #### C DP, MG, CP #### [facility] [address] [place] [address] [employer] Technician: Khadar Tang MD Albumin [Mass/Vol] 3.2 g/dL Low 3.5-5.2 [facility] Comment on above: Performed By: #### C DP, MG, CP #### [facility] [address] Suárez, [place] [address]097883 [employer] Technician: Khadar Tang MD Albumin/Glob Ratio 0.7 Low 1.0-2.5 [facility] Comment on above: Performed By: #### C DP, MG, CP #### [facility] [address] Suárez, [place] 4324283 [employer] Technician: Khadar Tang MD Alkaline Phos 101 U/L Normal 40-129 [facility] Comment on above: Performed By: #### C DP, MG, CP #### [facility] [address] Suárez, [place] 4351683 [employer] Technician: Khadar Tang MD ALT [Catalytic activity/Vol] 8 U/L Normal 5-41 [facility] Comment on above: Performed By: #### C DP, MG, CP #### [facility] [address] Suárez, [place] 1201583 [employer] Technician: Khadar Tang MD Anion gap [Moles/Vol] 11 mmol/L Normal 9-17 [facility] Comment on above: Performed By: #### C DP, MG, CP #### [facility] [address] Suárez, [place] 8571683 [employer] Technician: Khadar Tang MD AST [Catalytic activity/Vol] 13 U/L Normal <40 [facility] Comment on above: Performed By: #### C DP, MG, CP #### [facility] [address] Suárez, [place] 4394983 [employer] Technician: Khadar Tang MD BUN/CRE Ratio 25 High 9-20 [facility] Comment on above: Performed By: #### C DP, MG, CP #### [facility] [address] Suárez, [place] [id number] [employer] Technician: Khadar Tang MD Calcium [Mass/Vol] 9.1 mg/dL Normal 8.6-10.4 [facility] Comment on above: Performed By: #### C DP, MG, CP #### [facility] [address] [place] [address] [employer] Technician: Khadar Tang MD Chloride [Moles/Vol] 110 mmol/L High 98-107 [facility] Comment on above: Performed By: #### C DP, MG, CP #### [facility] [address] Suá[place], [facility]83 [employer] Technician: Khadar Tang MD CO2 [Moles/Vol] 16 mmol/L Low 20-31 [facility] Comment on above: Performed By: #### C DP, MG, CP #### [facility] [address] Suá[place], [facility]83 [employer] Technician: Khadar Tang MD Creatinine [Mass/Vol] 1.93 mg/dL High 0.70-1.20 [facility] Comment on above: Performed By: #### C DP, MG, CP #### [facility] [address] [place] [address] [employer] Technician: Khadar Tang MD GFR/1.73 sq M.predicted among non-blacks MDRD (S/P/Bld) [Vol rate/Area] 39 mL/min/{1.73_m2} Low >60 [facility] Comment on above: Result Comment: These results [...] By: #### C DP, MG, CP #### [facility] [address] [place] [address] [employer] Technician: Khadar Tang MD Glucose [Mass/Vol] 148 mg/dL High 70-99 [facility] Comment on above: Performed By: #### C DP, MG, CP #### [facility] [address] [place] [address] [employer] Technician: Khadar Tang MD Protein [Mass/Vol] 8.1 g/dL Normal 6.4-8.3 [facility] Comment on above: Performed By: #### C DP, MG, CP #### [facility] [address] Suá[place], [place] 0[address]6583 [employer] Technician: Khadar Tang MD Sodium [Moles/Vol] 137 mmol/L Normal 135-144 [facility] Comment on above: Performed By: #### C DP, MG, CP #### [facility] [address] [place] [address] [employer] Technician: Khadar Tang MD Urea nitrogen [Mass/Vol] 49 mg/dL High 8-23 [facility] Comment on above: Performed By: #### C DP, MG, CP #### [facility] [address] Suárez, [place] 3745783 [employer] Technician: Khadar Tang MD EKG 12 LeadOrdered By: Michelle Tellez hmdonovan on 06-22-2022 Atrial Rate 58 BPM [facility] [employer] [facility] Phone: P [place] 66 degrees [facility] [employer] [facility] Phone: P-R Interval 148 ms [facility] Phone: Q-T Interval 394 ms [employer] [facility] Phone: QRS Duration 94 ms [employer] [facility] Phone: QTc Calculation (Bazett) 386 ms [employer] [facility] Phone: R [place] 64 degrees [employer] [facility] Phone: T [place] -8 degrees [employer] [facility] Work Phone: Ventricular Rate 58 BPM [facility] [employer] Work Phone: [facility] Work Phone: EKG 12 Leadon 06-22-2022 Sinus bradycardia Inferior infarct , age undetermined Possible Anterolateral infarct , age undetermined Abnormal ECG When compared with ECG of 24-APR-2015 18:25, Vent. rate has decreased BY 39 BPM Borderline criteria for Anterolateral infarct are now Present T wave inversion now evident in Inferior leads QT has shortened Confirmed by Michelle Noe MD ([id number]) on 06/22/2022 10:09:31 PM [facility] RADIOLOG[facility] Michelle Noe MD - 06/22/2022 [...] Noe MD ([id number]) on 06/22/2022 10:09:31 PM [facility] Work Phone: Magnesiumon 06-22-2022 Magnesium [Mass/Vol] 2.0 mg/dL Normal 1.6-2.6 [facility] Comment on above: Performed By: #### C DP, MG, CP #### [facility] [address] [place] [address] [employer] Technician: Khadar Tang MD Magnesium [Mass/Vol] 2.0 mg/dL 1.6 - 2 .6 mg/dL [facility] CT PELVIS WO CONon 2 CT PELVIS [...] JESUSITA PAPPAS Date: 2022-03-14 09:50 Normal [facility] GLYCOHEMOGLOBIN A1Con 2021 ADA RECOMMENDATION ADA THERAPEUTIC TARG ET 6.0 - 7.0 ACTION SUGGESTED > 7.0 Normal [facility] Comment on above: Performed By: #### A 1C #### [facility] [address] [place] [address] [address] Juan Smith Glucose [Mass/Vol] 180 mg/dL Normal [facility] Comment on above: Performed By: #### A 1C #### [facility] [address] [place] [address] [address] Juan Smith HbA1c (Bld) [Mass fraction] 7.9 % Critically high <=6.0 [facility] Comment on above: Performed By: #### A 1C #### [facility] [address] [place] [address] [address] Juan Smith Cult,Aerobe/Anaerobeon 04-15 Neutrophils Specimen Description .TISSUE RIGHT MEDIAL HEEL POST IRRIGATIONSpecial Requests NOT REPORTEDDirect Exam NO NEUTROPHILS SEEN NO BACTERIA SEEN Culture METHICILLIN RESISTANT STAPHYLOCOCCUS AUREUS SCANT GROWTH For susceptibility, refer to previous culture. STREPTOCOCCI, BETA HEMOLYTIC GROUP C SCANT GROWTH DIPHTHEROIDS SCANT GROWTH NO ANAEROBIC ORGANISMS ISOLATED AT 5 DAYS Report Status FINAL 04/15/2017 [facility] Comment on above: Performed By: #### A ANC ####[address] [address] Neutrophils Specimen Description .TISSUE RIGHT ANKLE PRE IRRIGATIONSpecial Requests NOT REPORTEDDirect Exam NO NEUTROPHILS SEEN RARE GRAM POSITIVE COCCI IN PAIRS Culture METHICILLIN RESISTANT STAPHYLOCOCCUS AUREUS LIGHT GROWTH For susceptibility, refer to previous culture. STREPTOCOCCI, BETA HEMOLYTIC GROUP C SCANT GROWTH NO ANAEROBIC ORGANISMS ISOLATED AT 5 DAYS Report Status FINAL 04/15/2017 [facility] Comment on above: Performed By: #### A ANC ####[address] [address] Neutrophils Specimen Description .TISSUE RIGHT MEDIAL HEEL PRE IRRIGATIONSpecial Requests NOT REPORTEDDirect Exam NO NEUTROPHILS SEEN NO BACTERIA SEEN Culture STREPTOCOCCI, BETA HEMOLYTIC GROUP C LIGHT GROWTH METHICILLIN RESISTANT STAPHYLOCOCCUS AUREUS SCANT GROWTH For susceptibility, refer to previous culture. DIPHTHEROIDS LIGHT GROWTH NO ANAEROBIC ORGANISMS ISOLATED AT 5 DAYS Report Status FINAL 04/15/2017 [facility] Comment on above: Performed By: #### A ANC ####[place] [address] Basic Metabolic Profon 04-13 (cont.) [facility] Comment on above: Result Comment: Aver age GFR for 50-59 years old: 93 mL/min/1.73sq mChronic Kidney Disease: <60 mL/min/1.73sq mKidney failure: <15 mL/min/1.73sq meGFR calculated using average adult body mass. Additional eGFR calculator available at:http://www.[email or web address]/multiple_crcl_2012.htm[address] [address] Performed By: #### C DP, CMPX, CRP, SED, GLYHGB ####[address] [address] Anion gap 11 mmol/L Normal 9-[address] [facility] Comment on above: Performed By: #### C DP, CMPX, CRP, SED, GLYHGB ####[address] [address] Calcium 8.7 mg/dL Normal 8.6-10.[address] [facility] Comment on above: Performed By: #### C DP, CMPX, CRP, SED, GLYHGB ####[address] [address] Chloride 106 mmol/L Normal 98-[address] [facility] Comment on above: Performed By: #### C DP, CMPX, CRP, SED, GLYHGB ####[address] [address] CO2 22 mmol/L Normal 20-[address] [facility] Comment on above: Performed By: #### C DP, CMPX, CRP, SED, GLYHGB ####[address] [address] Creatinine 1.04 mg/dL Normal 0.70-1.[address] [facility] Comment on above: Performed By: #### C DP, CMPX, CRP, SED, GLYHGB ####[address] [address] eGFR (non-black) mL/min/{1.73_m2} Normal >60 [facility] Comment on above: Performed By: #### C DP, CMPX, CRP, SED, GLYHGB ####[place] [address] [place] [address] Glucose mass conc 174 mg/dL High 70-99 [facility] Comment on above: Performed By: #### C DP, CMPX, CRP, SED, GLYHGB ####[place] [address] [place] [address] Potassium molar conc 4.1 mmol/L Normal 3.7-5.3 [facility] Comment on above: Performed By: #### C DP, CMPX, CRP, SED, GLYHGB ####[place] [address] [place] [address] Sodium 139 mmol/L Normal 135-[address] [facility] Comment on above: Performed By: #### C DP, CMPX, CRP, SED, GLYHGB ####[address] [address] Urea nitrogen 16 mg/dL Normal 6-[address] [facility] Comment on above: Performed By: #### C DP, CMPX, CRP, SED, GLYHGB ####[place] [address] [place] [address] BUN/CRE Ratio NOT REPORTED Normal -[address] [facility] Comment on above: Performed By: #### C DP, CMPX, CRP, SED, GLYHGB ####[place] [address] [place] [address] Staging: NOT REPORTED Normal [facility] Comment on above: Performed By: #### C DP, CMPX, CRP, SED, GLYHGB ####[place] [address] [place] [address] CBC with Diffon 04-13-2017 Abs. Basophil <0.03 Normal 0.00-0.[address] [facility] Comment on above: Performed By: #### C DP, CMPX, CRP, SED, GLYHGB ####[address] [address] Abs.Neutrophil (Seg) 4.97 k/uL Normal 1.50-8.10 [facility] Comment on above: Performed By: #### C DP, CMPX, CRP, SED, GLYHGB ####[address] [address] Basophils/100 WBC Auto (Bld) 0 % Normal 0-[address] [facility] Comment on above: Performed By: #### C DP, CMPX, CRP, SED, GLYHGB ####[address] [address] Eosinophils 0.24 10*3/uL Normal 0.00-0.[address] [facility] Comment on above: Performed By: #### C DP, CMPX, CRP, SED, GLYHGB ####[address] [address] Eosinophils/100 leukocytes 3 % Normal 1-[address] [facility] Comment on above: Performed By: #### C DP, CMPX, CRP, SED, GLYHGB ####[address] [address] Erythrocyte distribution width Auto Ratio (RBC) 14.8 % High 11.8-14.[address] [facility] Comment on above: Performed By: #### C DP, CMPX, CRP, SED, GLYHGB ####[address] [address] Erythrocyte morphology ANISOCYTOSIS PRESENT Normal [facility] Comment on above: Result Comment: [address] [address] Performed By: #### C DP, CMPX, CRP, SED, GLYHGB ####[address] [address] Erythrocytes (RBC) 0.0 per 100 WBC Normal 0.0 M [facility] Comment on above: Performed By: #### C DP, CMPX, CRP, SED, GLYHGB ####[address] [address] Erythrocytes (RBC) 3.42 10*6/uL Low 4.21-5.77 [facility] Comment on above: Performed By: #### C DP, CMPX, CRP, SED, GLYHGB ####[address] [address] Granulocytes/100 WBC (Bld) 0.19 k/uL Normal 0.00-0.[address] [facility] Comment on above: Performed By: #### C DP, CMPX, CRP, SED, GLYHGB ####[address] [address] Hematocrit (HCT) 29.4 % Low 40.7-50.3 [facility] Comment on above: Performed By: #### C DP, CMPX, CRP, SED, GLYHGB ####[address] [address] Hemoglobin mass conc (Bld) 8.8 g/dL Low 13.0-17.[address] [facility] Comment on above: Performed By: #### C DP, CMPX, CRP, SED, GLYHGB ####[address] [address] Immature granulocytes #/vol (Bld) 2 % High [address] [facility] Comment on above: Performed By: #### C DP, CMPX, CRP, SED, GLYHGB ####[address] [address] Lymphocytes 2.00 10*3/uL Normal 1.10-3.[address] [facility] Comment on above: Performed By: #### C DP, CMPX, CRP, SED, GLYHGB ####[address] [address] Lymphocytes/100 leukocytes 25 % Normal 24-[address] [facility] Comment on above: Performed By: #### C DP, CMPX, CRP, SED, GLYHGB ####[address] [address] MCH 25.7 pg Normal 25.2-33.[address] [facility] Comment on above: Performed By: #### C DP, CMPX, CRP, SED, GLYHGB ####[address] [address] MCHC mass conc (RBC) 29.9 g/dL Normal 28.4-34.8 [facility] Comment on above: Performed By: #### C DP, CMPX, CRP, SED, GLYHGB ####[address] [address] MCV 86.0 fL Normal 82.6-102.[address] [facility] Comment on above: Performed By: #### C DP, CMPX, CRP, SED, GLYHGB ####[address] [address] Monocytes 0.53 10*3/uL Normal 0.10-1.[address] [facility] Comment on above: Performed By: #### C DP, CMPX, CRP, SED, GLYHGB ####[address] [address] Monocytes/100 leukocytes 7 % Normal 3-[address] [facility] Comment on above: Performed By: #### C DP, CMPX, CRP, SED, GLYHGB ####[address] [address] Neutrophil (Seg) 63 % Normal 36-65 [facility] Comment on above: Performed By: #### C DP, CMPX, CRP, SED, GLYHGB ####[address] [place] [address] Platelet mean volume (PMV) 9.9 fL Normal 8.1-13.[address] [facility] Comment on above: Performed By: #### C DP, CMPX, CRP, SED, GLYHGB ####[address] [address] Platelets 257 10*3/uL Normal 138-[address] [facility] Comment on above: Performed By: #### C DP, CMPX, CRP, SED, GLYHGB ####[address] [address] WBC (Leukocytes) 8.0 10*3/uL Normal 3.5-11.3 [facility] Comment on above: Performed By: #### C DP, CMPX, CRP, SED, GLYHGB ####[address] [address] Auto Diff Performed NOT REPORTED Normal [facility] Comment on above: Performed By: #### C DP, CMPX, CRP, SED, GLYHGB ####[address] [address] Platelets NOT REPORTED Normal [facility] Comment on above: Performed By: #### C DP, CMPX, CRP, SED, GLYHGB ####[address] [place] [address] WBC Morphology NOT REPORTED Normal [facility] Comment on above: Performed By: #### C DP, CMPX, CRP, SED, GLYHGB ####[address] [address] Discharge Summaryon 04-13-19 18 HIM IP Note OR Skein Dyer Normal [facility] Plan of Careon 04-13-2017 HIM IP Note OR Skein Dyer Normal [facility] HIM IP Note OR Skein Dyer Normal [facility] Progress Noteon 04-13-2017 HIM IP Note OR Skein Dyer Normal [facility] HIM IP Note OR [place] Dyer Normal [facility] HIM IP Note OR Skein Dyer Normal [facility] HIM IP Note OR Skein Dyer Normal [facility] HIM IP Note OR Skein Dyer Normal [facility] HIM IP Note OR Skein Dyer Normal [facility] Basic Metabolic Profon 04-12 (cont.) Normal [facility] Comment on above: Result Comment: Aver age GFR for 50-59 years old: 93 mL/min/1.73sq mChronic Kidney Disease: <60 mL/min/1.73sq mKidney failure: <15 mL/min/1.73sq meGFR calculated using average adult body mass. Additional eGFR calculator available at:[email or web address].[employer]/multiple_crcl_2012.htmAd[facility] [address] [place] [address] Performed By: #### C DP, CMPX, CRP, SED, GLYHGB ####[facility] [address] [place] [address] Anion gap 8 mmol/L Low 9-[address] [facility] Comment on above: Performed By: #### C DP, CMPX, CRP, SED, GLYHGB ####[facility] [address] [place] [address] Calcium 8.8 mg/dL Normal 8.6-10.[address] [facility] Comment on above: Performed By: #### C DP, CMPX, CRP, SED, GLYHGB ####[facility] [address] [place] [address] Chloride 107 mmol/L Normal 98-[address] [facility] Comment on above: Performed By: #### C DP, CMPX, CRP, SED, GLYHGB ####[facility] [place] [address] CO2 23 mmol/L Normal 20-[address] [facility] Comment on above: Performed By: #### C DP, CMPX, CRP, SED, GLYHGB ####[facility] [place] [address] Creatinine 1.01 mg/dL Normal 0.70-1.[address] [facility] Comment on above: Performed By: #### C DP, CMPX, CRP, SED, GLYHGB ####[address] [address] eGFR (non-black) mL/min/{1.73_m2} Normal >60 [facility] Comment on above: Performed By: #### C DP, CMPX, CRP, SED, GLYHGB ####[address] [address] Glucose mass conc 172 mg/dL High 70-99 [facility] Comment on above: Performed By: #### C DP, CMPX, CRP, SED, GLYHGB ####[address] [place] [address] Potassium molar conc 3.9 mmol/L Normal 3.7-5.3 [facility] Comment on above: Performed By: #### C DP, CMPX, CRP, SED, GLYHGB ####[address] [place] [address] Sodium 138 mmol/L Normal 135-[address] [facility] Comment on above: Performed By: #### C DP, CMPX, CRP, SED, GLYHGB ####[address] [place] [address] Urea nitrogen 15 mg/dL Normal 6-[address] [facility] Comment on above: Performed By: #### C DP, CMPX, CRP, SED, GLYHGB ####[address] [place] [address] BUN/CRE Ratio NOT REPORTED Normal - [facility] Comment on above: Performed By: #### C DP, CMPX, CRP, SED, GLYHGB ####[address] [address] Staging: NOT REPORTED Normal [facility] Comment on above: Performed By: #### C DP, CMPX, CRP, SED, GLYHGB ####[address] [address] CBC with Diffon 04-12-2017 Abs. Basophil <0.03 Normal 0.00-0.[address] [facility] Comment on above: Performed By: #### C DP, CMPX, CRP, SED, GLYHGB ####[address] [address] Abs.Neutrophil (Seg) 4.31 k/uL Normal 1.50-8.10 [facility] Comment on above: Performed By: #### C DP, CMPX, CRP, SED, GLYHGB ####[address] [address] Basophils/100 WBC Auto (Bld) 0 % Normal 0-[address] [facility] Comment on above: Performed By: #### C DP, CMPX, CRP, SED, GLYHGB ####[address] [address] Eosinophils 0.21 10*3/uL Normal 0.00-0.[address] [facility] Comment on above: Performed By: #### C DP, CMPX, CRP, SED, GLYHGB ####[address] [address] Eosinophils/100 leukocytes 3 % Normal 1-[address] [facility] Comment on above: Performed By: #### C DP, CMPX, CRP, SED, GLYHGB ####[address] [address] Erythrocyte distribution width Auto Ratio (RBC) 14.7 % High 11.8-14.[address] [facility] Comment on above: Performed By: #### C DP, CMPX, CRP, SED, GLYHGB ####[address] [address] Erythrocyte morphology ANISOCYTOSIS PRESENT Normal [facility] Comment on above: Result Comment: [address] [address] Performed By: #### C DP, CMPX, CRP, SED, GLYHGB ####[address] [address] Erythrocytes (RBC) 3.45 10*6/uL Low 4.21-5.77 [facility] Comment on above: Performed By: #### C DP, CMPX, CRP, SED, GLYHGB ####[address] [address] Granulocytes/100 WBC (Bld) 0.22 k/uL Normal 0.00-0.[address] [facility] Comment on above: Performed By: #### C DP, CMPX, CRP, SED, GLYHGB ####[address] [address] Hematocrit (HCT) 28.9 % Low 40.7-50.3 [facility] Comment on above: Performed By: #### C DP, CMPX, CRP, SED, GLYHGB ####[address] [address] Hemoglobin mass conc (Bld) 8.9 g/dL Low 13.0-17.[address] [facility] Comment on above: Performed By: #### C DP, CMPX, CRP, SED, GLYHGB ####[address] [address] Immature granulocytes #/vol (Bld) 3 % High [address] [facility] Comment on above: Performed By: #### C DP, CMPX, CRP, SED, GLYHGB ####[address] [address] Lymphocytes 1.83 10*3/uL Normal 1.10-3.[address] [facility] Comment on above: Performed By: #### C DP, CMPX, CRP, SED, GLYHGB ####[address] [address] Lymphocytes/100 leukocytes 26 % Normal 24-[address] [facility] Comment on above: Performed By: #### C DP, CMPX, CRP, SED, GLYHGB ####[address] [address] MCH 25.8 pg Normal 25.2-33.[address] [facility] Comment on above: Performed By: #### C DP, CMPX, CRP, SED, GLYHGB ####[address] [address] MCHC mass conc (RBC) 30.8 g/dL Normal 28.4-34.8 [facility] Comment on above: Performed By: #### C DP, CMPX, CRP, SED, GLYHGB ####[address] [address] MCV 83.8 fL Normal 82.6-102.[address] [facility] Comment on above: Performed By: #### C DP, CMPX, CRP, SED, GLYHGB ####[address] [address] Monocytes 0.58 10*3/uL Normal 0.10-1.[address] [facility] Comment on above: Performed By: #### C DP, CMPX, CRP, SED, GLYHGB ####[address] [place] [address] Monocytes/100 leukocytes 8 % Normal 3-[address] [facility] Comment on above: Performed By: #### C DP, CMPX, CRP, SED, GLYHGB ####[address] [address] Neutrophil (Seg) 60 % Normal 36-65 [facility] Comment on above: Performed By: #### C DP, CMPX, CRP, SED, GLYHGB ####[address] [address] Platelet mean volume (PMV) 9.3 fL Normal 8.1-13.[address] [facility] Comment on above: Performed By: #### C DP, CMPX, CRP, SED, GLYHGB ####[address] [address] Platelets 231 10*3/uL Normal 138-[address] [facility] Comment on above: Performed By: #### C DP, CMPX, CRP, SED, GLYHGB ####[address] [address] WBC (Leukocytes) 7.2 10*3/uL Normal 3.5-11.3 [facility] Comment on above: Performed By: #### C DP, CMPX, CRP, SED, GLYHGB ####[address] [address] Auto Diff Performed NOT REPORTED Normal [facility] Comment on above: Performed By: #### C DP, CMPX, CRP, SED, GLYHGB ####[address] [address] Platelets NOT REPORTED Normal [facility] Comment on above: Performed By: #### C DP, CMPX, CRP, SED, GLYHGB ####[address] [place], [place] [id number] WBC Morphology NOT REPORTED Normal [facility] Comment on above: Performed By: #### C DP, CMPX, CRP, SED, GLYHGB ####[address] [place], [place] [id number] Cult,Aerobe/Anaerobeon 04-12 Neutrophils Specimen Description .TISSUE RIGHT LATERAL ANKLE POST IRRIGATIONSpecial Requests NOT REPORTEDDirect Exam NO NEUTROPHILS SEEN RARE GRAM POSITIVE COCCI IN PAIRS Culture METHICILLIN RESISTANT STAPHYLOCOCCUS AUREUS LIGHT GROWTH STREPTOCOCCI, BETA HEMOLYTIC GROUP C SCANT GROWTH DIPHTHEROIDS LIGHT GROWTH NO ANAEROBIC ORGANISMS ISOLATED AT 5 DAYS Report Status FINAL 04/15/2017SUSCEPTIBILITYOr ganism MRSAMethod MICPenicillin >=0.5 RESISTANTCefoxitin Screen NOT REPORTEDCiprofloxacin NOT REPORTEDClindamycin <=0.25 SUSCEPTIBLEErythromycin <=0.25 SUSCEPTIBLEGentamicin <=0.5 SUSCEPTIBLEInduced Clind Resist NOT REPORTEDLevofloxacin 4 INTERMEDIATELinezolid NOT REPORTEDMoxifloxacin NOT REPORTEDNitrofurantoin NOT REPORTEDOxacillin >=4 RESISTANTSynercid NOT REPORTEDRifampin NOT REPORTEDTetracycline <=1 SUSCEPTIBLETigecycline NOT REPORTEDTrimethoprim/Sulfa <=10 SUSCEPTIBLEVancomycin 1 SUSCEPTIBLE Normal [facility] Comment on above: Performed By: #### A ANC ####[facility] [address] [place], [place] [id number] Plan of Careon 04-12-2017 HIM IP Note OR Skein Dyer Normal [facility] HIM IP Note OR Skein Dyer Normal [facility] HIM IP Note OR Skein Dyer Normal [facility] HIM IP Note OR Skein Dyer Normal [facility] HIM IP Note OR Skein Dyer Normal [facility] Progress Noteon 04-12-2017 HIM IP Note OR Skein Dyer Normal [facility] HIM IP Note OR Skein Dyer Normal [facility] HIM IP Note OR Skein Dyer Normal [facility] HIM IP Note OR Skein Dyer Normal [facility] HIM IP Note OR Skein Dyer Normal [facility] HIM IP Note OR Skein Dyer Normal [facility] Basic Metabolic Profon 04-11 (cont.) Normal [facility] Comment on above: Result Comment: Aver age GFR for 50-59 years old: 93 mL/min/1.73sq mChronic Kidney Disease: <60 mL/min/1.73sq mKidney failure: <15 mL/min/1.73sq meGFR calculated using average adult body mass. Additional eGFR calculator available at:[email or web address] [address] [place] [address] Performed By: #### C DP, CMPX, CRP, SED, GLYHGB ####[address] [address] Anion gap 14 mmol/L Normal 9-[address] [facility] Comment on above: Performed By: #### C DP, CMPX, CRP, SED, GLYHGB ####[facility] [address] [place] [address] Calcium 8.2 mg/dL Low 8.6-10.[address] [facility] Comment on above: Performed By: #### C DP, CMPX, CRP, SED, GLYHGB ####[address] [address] Chloride 101 mmol/L Normal 98-[address] [facility] Comment on above: Performed By: #### C DP, CMPX, CRP, SED, GLYHGB ####[facility] [address] [place] [address] CO2 21 mmol/L Normal 20-[address] [facility] Comment on above: Performed By: #### C DP, CMPX, CRP, SED, GLYHGB ####[facility] [address] [place] [address] Creatinine 1.16 mg/dL Normal 0.70-1.[address] [facility] Comment on above: Performed By: #### C DP, CMPX, CRP, SED, GLYHGB ####[address] [address] eGFR (non-black) mL/min/{1.73_m2} Normal >60 [facility] Comment on above: Performed By: #### C DP, CMPX, CRP, SED, GLYHGB ####[address] [address] Glucose mass conc 153 mg/dL High 70-99 [facility] Comment on above: Performed By: #### C DP, CMPX, CRP, SED, GLYHGB ####[address] [address] Potassium molar conc 4.0 mmol/L Normal 3.7-5.3 [facility] Comment on above: Performed By: #### C DP, CMPX, CRP, SED, GLYHGB ####[address] [address] Sodium 136 mmol/L Normal 135-[address] [facility] Comment on above: Performed By: #### C DP, CMPX, CRP, SED, GLYHGB ####[address] [address] Urea nitrogen 18 mg/dL Normal 6-[address] [facility] Comment on above: Performed By: #### C DP, CMPX, CRP, SED, GLYHGB ####[address] [address] BUN/CRE Ratio NOT REPORTED Normal 9-[address] [facility] Comment on above: Performed By: #### C DP, CMPX, CRP, SED, GLYHGB ####[address] [address] Staging: NOT REPORTED Normal [facility] Comment on above: Performed By: #### C DP, CMPX, CRP, SED, GLYHGB ####[address] [address] C-Reactive Proteinon 018 C reactive protein (CRP) 55.5 mg/L High 0.0-5.[address] [facility] Comment on above: Result Comment: [address] [address] Performed By: #### C DP, CMPX, CRP, SED, GLYHGB ####[address] [address] CBC with Diffon 04-11-2017 Abs. Basophil <0.03 Normal 0.00-0.[address] [facility] Comment on above: Performed By: #### C DP, CMPX, CRP, SED, GLYHGB ####[address] [address] Abs.Neutrophil (Seg) 5.04 k/uL Normal 1.50-8.10 [facility] Comment on above: Performed By: #### C DP, CMPX, CRP, SED, GLYHGB ####[address] [address] Basophils/100 WBC Auto (Bld) 0 % Normal 0-[address] [facility] Comment on above: Performed By: #### C DP, CMPX, CRP, SED, GLYHGB ####[address] [address] Eosinophils 0.24 10*3/uL Normal 0.00-0.[address] [facility] Comment on above: Performed By: #### C DP, CMPX, CRP, SED, GLYHGB ####[address] [address] Eosinophils/100 leukocytes 3 % Normal 1-[address] [facility] Comment on above: Performed By: #### C DP, CMPX, CRP, SED, GLYHGB ####[address] [address] Erythrocyte distribution width Auto Ratio (RBC) 14.8 % High 11.8-14.[address] [facility] Comment on above: Performed By: #### C DP, CMPX, CRP, SED, GLYHGB ####[address] [address] Erythrocyte morphology ANISOCYTOSIS PRESENT Normal [facility] Comment on above: Result Comment: [address] [address] Performed By: #### C DP, CMPX, CRP, SED, GLYHGB ####[address] [address] Erythrocytes (RBC) 3.36 10*6/uL Low 4.21-5.77 [facility] Comment on above: Performed By: #### C DP, CMPX, CRP, SED, GLYHGB ####[address] [address] Granulocytes/100 WBC (Bld) 0.09 k/uL Normal 0.00-0.[address] [facility] Comment on above: Performed By: #### C DP, CMPX, CRP, SED, GLYHGB ####[address] [address] Hematocrit (HCT) 28.8 % Low 40.7-50.3 [facility] Comment on above: Performed By: #### C DP, CMPX, CRP, SED, GLYHGB ####[address] [address] Hemoglobin mass conc (Bld) 8.8 g/dL Low 13.0-17.[address] [facility] Comment on above: Performed By: #### C DP, CMPX, CRP, SED, GLYHGB ####[address] [address] Immature granulocytes #/vol (Bld) 1 % High [address] [facility] Comment on above: Performed By: #### C DP, CMPX, CRP, SED, GLYHGB ####[address] [address] Lymphocytes 1.73 10*3/uL Normal 1.10-3.[address] [facility] Comment on above: Performed By: #### C DP, CMPX, CRP, SED, GLYHGB ####[address] [address] Lymphocytes/100 leukocytes 23 % Low 24-[address] [facility] Comment on above: Performed By: #### C DP, CMPX, CRP, SED, GLYHGB ####[address] [address] MCH 26.2 pg Normal 25.2-33.[address] [facility] Comment on above: Performed By: #### C DP, CMPX, CRP, SED, GLYHGB ####[address] [address] MCHC mass conc (RBC) 30.6 g/dL Normal 28.4-34.8 [facility] Comment on above: Performed By: #### C DP, CMPX, CRP, SED, GLYHGB ####[address] [address] MCV 85.7 fL Normal 82.6-102.[address] [facility] Comment on above: Performed By: #### C DP, CMPX, CRP, SED, GLYHGB ####[address] [address] Monocytes 0.56 10*3/uL Normal 0.10-1.[address] [facility] Comment on above: Performed By: #### C DP, CMPX, CRP, SED, GLYHGB ####[address] [address] Monocytes/100 leukocytes 7 % Normal 3-[address] [facility] Comment on above: Performed By: #### C DP, CMPX, CRP, SED, GLYHGB ####[address] [address] Neutrophil (Seg) 66 % High 36-65 [facility] Comment on above: Performed By: #### C DP, CMPX, CRP, SED, GLYHGB ####[address] [address] Platelet mean volume (PMV) 9.9 fL Normal 8.1-13.[address] [facility] Comment on above: Performed By: #### C DP, CMPX, CRP, SED, GLYHGB ####[address] [address] Platelets 264 10*3/uL Normal 138-[address] [facility] Comment on above: Performed By: #### C DP, CMPX, CRP, SED, GLYHGB ####[address] [address] WBC (Leukocytes) 7.7 10*3/uL Normal 3.5-11.3 [facility] Comment on above: Performed By: #### C DP, CMPX, CRP, SED, GLYHGB ####[address] [address] Auto Diff Performed NOT REPORTED Normal [facility] Comment on above: Performed By: #### C DP, CMPX, CRP, SED, GLYHGB ####[address] [address] Platelets NOT REPORTED Normal [facility] Comment on above: Performed By: #### C DP, CMPX, CRP, SED, GLYHGB ####[facility] [address] [place] [address] WBC Morphology NOT REPORTED Normal [facility] Comment on above: Performed By: #### C DP, CMPX, CRP, SED, GLYHGB ####[facility] [address] [place] [address] Hemoglobin A1Con 04-11-2017 Glucose mass conc 315 mg/dL Normal [facility] Comment on above: Result Comment: The ADA and AACC recommend providing the estimated average glucose result to permit better patient understanding of their HBA1c result.[address] [address] Performed By: #### C DP, CMPX, CRP, SED, GLYHGB ####[facility] [address] [place] [address] Hemoglobin A1c/Hemoglobin.total mass fraction (Bld) 12.6 % High 4.0-6.[address] [facility] Comment on above: Performed By: #### C DP, CMPX, CRP, SED, GLYHGB ####[facility] [address] [place] [address] Plan of Careon 04-11-2017 HIM IP Note OR Skein Dyer Normal [facility] HIM IP Note OR Skein Dyer Normal [facility] HIM IP Note OR Skein Dyer Normal [facility] HIM IP Note OR Skein Dyer Normal [facility] Progress Noteon 04-11-2017 HIM IP Note OR Skein Dyer Normal [facility] HIM IP Note OR Skein Dyer Normal [facility] HIM IP Note OR Skein Dyer Normal [facility] HIM IP Note OR Skein Dyer Normal [facility] Consulton 04-10-2017 HIM IP Note OR Skein Dyer Normal [facility] Cult,Urine,Cathon 04-10-2017 Cult,Urine,Cath Specimen Description .CATHETERIZED URINE Special Requests NOT REPORTED Culture PRESUMPTIVE ID: [id number] ALBICANS >[id number] CFU/ML Report Status FINAL 04/10/[address] [facility] Comment on above: Performed By: #### C DP, CMPX, CRP, SED, GLYHGB ####[address] [place] [address] Influenza A + B, PCRon 04-10 Influenza A + B, PCR Specimen Descriptio n .NASOPHARYNGEAL SWABSpecial Requests NOT REPORTEDDirect Exam NEGATIVE: Influenza A and B RNA not detected by nucleic acid amplification. The results obtained should be interpreted in conjunction with clinical findings and other laboratory markers. The performance characterisitics of this molecular test were validated by the molecular microbiology department of [facility]. Report Status FINAL 04/10/2017 [facility] Comment on above: Performed By: #### C DP, CMPX, CRP, SED, GLYHGB ####[place] [address] OPERATIVE REPORTon 8 OPERATIVE REPORT [address] [address] OPERATIVE REPORTPATIENT NAME: GANGA STINSON : 1960[facility] NO: [id number] ROOM: [address] [place] [address] NO: [id number] ADMIT DATE: 04/09/2017PROVIDER: William Foster-JudgeDATE OF PROCEDURE: [...] for recovery. The patient has a primary manager research and development, Dr. 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 The department of Infectious Disease,Internal Medicine, and specialty medicine services will provide care duringthe inpatient admission. He will return to the care of Dr. Min [facility] upon discharge.INDICATIONS FOR OPERATION: This is a [...] He would follow up with his usual manager research and development on anoutpatient basis. The departments of Internal Medicine and InfectiousDisease will guide our care in the interim. Cultures should be availablewith sensitivities in approximately 72 hours and consider dischargeplanning then.WILLIAM FOSTER-JUDGED: 04/10/2017 15:31:53 /Jerry_SSROR_IJob#: [id number] Doc#: [id number]: Yakov Min [facility] Department of Infectious Disease Internal Medicine Normal [facility] Plan of Careon 04-10-2017 HIM IP Note OR Skein Dyer Normal [facility] HIM IP Note OR Skein Dyer Normal [facility] Progress Noteon 04-10-2017 HIM IP Note OR Skein Dyer Normal [facility] HIM IP Note OR Skein Dyer Normal [facility] XR ANKLE RIGHT STANDARDon XR ANKLE RIGHT STANDARD EXAMINATION:3 VIEWS OF THE RIGHT ANKLE04/09/2017 10:04 pmCOMPARISON:04/09/2017 MRI right footHISTORY:ORDERING SYSTEM PROVIDED HISTORY: osteomyelitisTECHNOLOGIST PROVIDED HISTORY:Reason for exam:->osteomyelitisFINDIN GS:No fracture or dislocation is identified. There is a cortical thinning andirregularity of the lateral cortex of the lateral malleolus with adjacentsoft tissue edema consistent with cellulitis and osteomyelitis. Large skinulceration is present in this location. Large plantar calcaneal spur.IMPRESSION: Large soft tissue ulcer overlying the lateral malleolus with underlyingosseous changes consistent with cellulitis and osteomyelitis.Interpreted by:SAMMI Bakerigned by:Roberto Carlos Cavazos MD04/09/17inal result Normal [facility] C-Reactive Proteinon 018 C reactive protein (CRP) 114.3 mg/L High 0.0-5.[address] [facility] Comment on above: Result Comment: [address] [address] Performed By: #### C DP, CMPX, CRP, SED, GLYHGB ####[address] [address] CBC with Diffon 04-09-2017 Abs. Basophil <0.03 Normal 0.00-0.[address] [facility] Comment on above: Performed By: #### C DP, CMPX, CRP, SED, GLYHGB ####[address] [address] Abs.Neutrophil (Seg) 5.95 k/uL Normal 1.50-8.10 [facility] Comment on above: Performed By: #### C DP, CMPX, CRP, SED, GLYHGB ####[address] [address] Basophils/100 WBC Auto (Bld) 0 % Normal 0-[address] [facility] Comment on above: Performed By: #### C DP, CMPX, CRP, SED, GLYHGB ####[address] [address] Eosinophils 0.11 10*3/uL Normal 0.00-0.[address] [facility] Comment on above: Performed By: #### C DP, CMPX, CRP, SED, GLYHGB ####[address] [address] Eosinophils/100 leukocytes 1 % Normal 1-[address] [facility] Comment on above: Performed By: #### C DP, CMPX, CRP, SED, GLYHGB ####[address] [address] Erythrocyte distribution width Auto Ratio (RBC) 15.0 % High 11.8-14.[address] [facility] Comment on above: Performed By: #### C DP, CMPX, CRP, SED, GLYHGB ####[address] [address] Erythrocyte morphology ANISOCYTOSIS PRESENT Normal [facility] Comment on above: Result Comment: [address] [place] [address] Performed By: #### C DP, CMPX, CRP, SED, GLYHGB ####[address] [address] Erythrocytes (RBC) 3.50 10*6/uL Low 4.21-5.77 [facility] Comment on above: Performed By: #### C DP, CMPX, CRP, SED, GLYHGB ####[address] [address] Granulocytes/100 WBC (Bld) 0.09 k/uL Normal 0.00-0.[address] [facility] Comment on above: Performed By: #### C DP, CMPX, CRP, SED, GLYHGB ####[address] [address] Hematocrit (HCT) 29.9 % Low 40.7-50.3 [facility] Comment on above: Performed By: #### C DP, CMPX, CRP, SED, GLYHGB ####[address] [address] Hemoglobin mass conc (Bld) 9.0 g/dL Low 13.0-17.[address] [facility] Comment on above: Performed By: #### C DP, CMPX, CRP, SED, GLYHGB ####[address] [address] Immature granulocytes #/vol (Bld) 1 % High [address] [facility] Comment on above: Performed By: #### C DP, CMPX, CRP, SED, GLYHGB ####[address] [address] Lymphocytes 1.60 10*3/uL Normal 1.10-3.[address] [facility] Comment on above: Performed By: #### C DP, CMPX, CRP, SED, GLYHGB ####[address] [address] Lymphocytes/100 leukocytes 19 % Low 24-[address] [facility] Comment on above: Performed By: #### C DP, CMPX, CRP, SED, GLYHGB ####[address] [address] MCH 25.7 pg Normal 25.2-33.[address] [facility] Comment on above: Performed By: #### C DP, CMPX, CRP, SED, GLYHGB ####[address] [address] MCHC mass conc (RBC) 30.1 g/dL Normal 28.4-34.8 [facility] Comment on above: Performed By: #### C DP, CMPX, CRP, SED, GLYHGB ####[address] [address] MCV 85.4 fL Normal 82.6-102.[address] [facility] Comment on above: Performed By: #### C DP, CMPX, CRP, SED, GLYHGB ####[address] [address] Monocytes 0.53 10*3/uL Normal 0.10-1.[address] [facility] Comment on above: Performed By: #### C DP, CMPX, CRP, SED, GLYHGB ####[address] [address] Monocytes/100 leukocytes 6 % Normal 3-[address] [facility] Comment on above: Performed By: #### C DP, CMPX, CRP, SED, GLYHGB ####[address] [address] Neutrophil (Seg) 73 % High 36-65 [facility] Comment on above: Performed By: #### C DP, CMPX, CRP, SED, GLYHGB ####[address] [address] Platelet mean volume (PMV) 9.6 fL Normal 8.1-13.[address] [facility] Comment on above: Performed By: #### C DP, CMPX, CRP, SED, GLYHGB ####[address] [address] Platelets 224 10*3/uL Normal 138-[address] [facility] Comment on above: Performed By: #### C DP, CMPX, CRP, SED, GLYHGB ####[address] [address] WBC (Leukocytes) 8.3 10*3/uL Normal 3.5-11.3 [facility] Comment on above: Performed By: #### C DP, CMPX, CRP, SED, GLYHGB ####[address] [address] Auto Diff Performed NOT REPORTED Normal [facility] Comment on above: Performed By: #### C DP, CMPX, CRP, SED, GLYHGB ####[facility] [place] [address] Platelets NOT REPORTED Normal [facility] Comment on above: Performed By: #### C DP, CMPX, CRP, SED, GLYHGB ####[address] [place] [address] WBC Morphology NOT REPORTED Normal [facility] Comment on above: Performed By: #### C DP, CMPX, CRP, SED, GLYHGB ####[address] [address] Comp Metabolic Pr/rfx MGon 0 - (cont.) Normal [facility] Comment on above: Result Comment: Aver age GFR for 50-59 years old: 93 mL/min/1.73sq mChronic Kidney Disease: <60 mL/min/1.73sq mKidney failure: <15 mL/min/1.73sq meGFR calculated using average adult body mass. Additional eGFR calculator available at:[email or web address] [address] [place] [address] Performed By: #### C DP, CMPX, CRP, SED, GLYHGB ####[address] [address] Alanine aminotransferase (ALT) 9 U/L Normal 5-[address] [facility] Comment on above: Performed By: #### C DP, CMPX, CRP, SED, GLYHGB ####[address] [place] [address] Albumin 2.8 g/dL Low 3.5-5.[address] [facility] Comment on above: Performed By: #### C DP, CMPX, CRP, SED, GLYHGB ####[address] [address] Albumin/Globulin Ratio 0.7 {ratio} Low 1.0-2.[address] [facility] Comment on above: Performed By: #### C DP, CMPX, CRP, SED, GLYHGB ####[address] [place] [address] Alkaline Phos 57 U/L Normal 40-[address] [facility] Comment on above: Performed By: #### C DP, CMPX, CRP, SED, GLYHGB ####[address] [address] Anion gap 13 mmol/L Normal 9-[address] [facility] Comment on above: Performed By: #### C DP, CMPX, CRP, SED, GLYHGB ####[address] [place] [address] Aspartate aminotransferase (AST) 9 U/L Normal <[address] [facility] Comment on above: Performed By: #### C DP, CMPX, CRP, SED, GLYHGB ####[facility] [address] [place] [address] Bilirubin Ql (U) 0.26 mg/dL Low 0.3-1.2 [facility] Comment on above: Performed By: #### C DP, CMPX, CRP, SED, GLYHGB ####[facility] [address] [place] [address] Calcium 8.4 mg/dL Low 8.6-10.[address] [facility] Comment on above: Performed By: #### C DP, CMPX, CRP, SED, GLYHGB ####[facility] [address] [place] [address] Chloride 99 mmol/L Normal 98-[address] [facility] Comment on above: Performed By: #### C DP, CMPX, CRP, SED, GLYHGB ####[address] [place] [address] CO2 21 mmol/L Normal 20-[address] [facility] Comment on above: Performed By: #### C DP, CMPX, CRP, SED, GLYHGB ####[address] [address] Creatinine 1.13 mg/dL Normal 0.70-1.[address] [facility] Comment on above: Performed By: #### C DP, CMPX, CRP, SED, GLYHGB ####[address] [address] eGFR (non-black) mL/min/{1.73_m2} Normal >60 [facility] Comment on above: Performed By: #### C DP, CMPX, CRP, SED, GLYHGB ####[address] [address] Glucose mass conc 267 mg/dL High 70-99 [facility] Comment on above: Performed By: #### C DP, CMPX, CRP, SED, GLYHGB ####[address] [address] Potassium molar conc 4.3 mmol/L Normal 3.7-5.3 [facility] Comment on above: Performed By: #### C DP, CMPX, CRP, SED, GLYHGB ####[address] [address] Protein 7.0 g/dL Normal 6.4-8.[address] [facility] Comment on above: Performed By: #### C DP, CMPX, CRP, SED, GLYHGB ####[address] [address] Sodium 133 mmol/L Low 135-[address] [facility] Comment on above: Performed By: #### C DP, CMPX, CRP, SED, GLYHGB ####[address] [id number] Urea nitrogen 22 mg/dL High 6-[address] [facility] Comment on above: Performed By: #### C DP, CMPX, CRP, SED, GLYHGB ####[facility] [address] [place], [place] [id number] BUN/CRE Ratio NOT REPORTED Normal 9-[address] [facility] Comment on above: Performed By: #### C DP, CMPX, CRP, SED, GLYHGB ####[facility] [address] [place], [place] [id number] Staging: NOT REPORTED Normal [facility] Comment on above: Performed By: #### C DP, CMPX, CRP, SED, GLYHGB ####[facility] [address] [place], [place] [id number] Consulton 04-09-2017 HIM IP Note OR Skein Dyer Normal [facility] HIM IP Note OR Skein Dyer Normal [facility] HIM IP Note OR Skein Dyer Normal [facility] Flu A/B Ag Detectionon 04-09 Flu A/B Ag Detection Specimen Descriptio n .NASOPHARYNGEAL SWABSpecial Requests NOT REPORTEDDirect Exam PRESUMPTIVE NEGATIVE for Influenza A + B antigens. PCR testing to confirm this result is available upon request. Specimen will be saved in the laboratory for 7 days. Please call [phone] if PCR testing is indicated. Report Status FINAL 04/09/[address] [facility] Comment on above: Performed By: #### C DP, CMPX, CRP, SED, GLYHGB ####[facility] [address] [place], [place] [id number] History and Physicalon 04-09 HIM IP Note OR Skein Dyer Normal [facility] MRI FOOT RIGHT W WO CONTRAST on 04-09-2017 MRI FOOT RIGHT W WO CONTRAST EXAMINATION:MRI OF THE RIGHT FOOT WITHOUT AND WITH CONTRAST, 04/09/2017 7:35 PMTECHNIQUE:Multiplanar multisequence MRI of the right hindfoot was performed without andwith the administration of intravenous contrast.COMPARISON:Radiog raphs January 07, 2017HISTORY:ORDERING SYSTEM PROVIDED HISTORY: OSTEOMYELITIS, [...] suspected despite a lack of definitive precontrast W1xyiukydq changes.Large ulcer overlying the lateral malleolus with underlying osteomyelitis.Interpreted by:SAMMI Tellezigned by:Jesusita Mock MD04/09/17inal result Normal [facility] Op Noteon 04-09-2017 HIM IP Note OR Skein Dyer Normal [facility] Plan of Careon 04-09-2017 HIM IP Note OR Skein Dyer Normal [facility] HIM IP Note OR Skein Dyer Normal [facility] Progress Noteon 04-09-2017 HIM IP Note OR Skein Dyer Normal [facility] HIM IP Note OR Skein Dyer Normal [facility] HIM IP Note OR Skein Dyer Normal [facility] RSV Ag Detectionon 8 RSV Ag Detection Specimen Description .NASOPHARYNGEAL SWABSpecial Requests NOT REPORTEDDirect Exam Presumptive negative for the presence of RSV antigen. PCR testing to confirm this result is available upon request. Specimen will be saved in the laboratory for 7 days. Please call [phone] if PCR testing is indicated. Report Status FINAL 04/09/[address] [facility] Comment on above: Performed By: #### C DP, CMPX, CRP, SED, GLYHGB ####[facility] [address] [place], [place] [id number] Sedimentation Rateon 018 Sedimentation Rate 80 mm High 0-[address] [facility] Comment on above: Result Comment: [facility] [employer] [address], [place] [id number] ([phone] Performed By: #### C DP, CMPX, CRP, SED, GLYHGB ####[facility] [address] [place], [place] [id number] XR FOOT RIGHT STANDARDon XR FOOT RIGHT STANDARD EXAMINATION:3 VIEWS OF THE RIGHT FOOT, 04/09/2017 9:07 PMCOMPARISON:January 07, 2017HISTORY:ORDERING SYSTEM PROVIDED HISTORY: non healing ulcers. R/O osteomyelitisTECHNOLOGIST PROVIDED HISTORY:Reason for exam:->non healing ulcers. R/O osteomyelitisFINDINGS:Prio r 5th transmetatarsal amputation. No acute fracture. Diffuseosteopenia. Moderate narrowing of the 1st metatarsophalangeal joint withsmall osteophytes.Mild diffuse soft tissue swelling. More focal area of ulceration is seenadjacent to the lateral malleolus. There is suggestion of mild irregularityalong the lateral malleolus.IMPRESSION: Focal ulcer adjacent to the lateral malleolus with suspected underlyingosteomyelitis. MRI of the hindfoot/ankle may be helpful for more definitivecharacterization .Interpreted by:SAMMI Tellezigned by:Jesusita Mock MD04/09/17inal result Normal [facility] Vital Signs Date Time Vital Sign Value Performing Clinician Facility 02-08-2024 11:44-0500 Body height 180.34 cm Fidel Abbott MD Work Phone: [facility] 02-08-2024 11:44-0500 Body mass index (BMI) [Ratio] 31.4 kg/m2 Fidel Abbott MD Work Phone: [facility] 02-08-2024 11:44-0500 Body weight 102.05 kg Fidel Abbott MD Work Phone: [facility] 02-08-2024 10:51-0500 Body temperature 98.1 [degF] Fidel Abbott MD Work Phone: [facility] 02-08-2024 10:51-0500 Diastolic blood pressure 66 mm[Hg] Fidel Abbott MD Work Phone: [facility] 02-08-2024 10:51-0500 Heart rate 64 /min Fidel Abbott MD Work Phone: [facility] 02-08-2024 10:51-0500 Respiratory rate 18 /min Fidel Abbott MD Work Phone: [facility] 02-08-2024 10:51-0500 Systolic blood pressure 125 mm[Hg] Fidel Abbott MD Work Phone: [facility] 01-20-2024 11:52-0400 Body height 180.3 cm Fidel Abbott MD Work Phone: [facility] 01-20-2024 11:52-0400 Body temperature 97.5 [degF] Fidel Abbott MD Work Phone: [facility] 01-20-2024 11:52-0400 Diastolic blood pressure 58 mm[Hg] Fidel Abbott MD Work Phone: [facility] 01-20-2024 11:52-0400 Heart rate 57 /min Fidel Abbott MD Work Phone: [facility] 01-20-2024 11:52-0400 Respiratory rate 20 /min Fidel Abbott MD Work Phone: [facility] 01-20-2024 11:52-0400 SaO2% (BldA) [Mass fraction] 99 % Fidel Abbott MD Work Phone: [facility] 01-20-2024 11:52-0400 Systolic blood pressure 130 mm[Hg] Fidel Abbott MD Work Phone: [facility] 06-04-2023 13:27-0500 Diastolic blood pressure 58 mm[Hg] MD Fidel Abbott Work Phone: [facility] 06-04-2023 13:27-0500 Heart rate 60 /min MD Fidel Abbott Work Phone: [facility] 06-04-2023 13:27-0500 Respiratory rate 12 /min MD Fidel Abbott Work Phone: [facility] 06-04-2023 13:27-0500 SaO2% (BldA) [Mass fraction] 98 % MD Fidel Abbott Work Phone: [facility] 06-04-2023 13:27-0500 Systolic blood pressure 135 mm[Hg] MD Fidel Abbott Work Phone: [facility] 06-04-2023 10:49-0500 Body height 180.34 cm MD Fidel Abbott Work Phone: [facility] 06-04-2023 10:49-0500 Body temperature 98 [degF] MD Fidel Abbott Work Phone: [facility] 06-04-2023 10:49-0500 Body weight 114.3 kg MD Fidel Abbott Work Phone: [facility] 05-06-2023 10:40-0500 Body height 177.8 cm Jonathan Moffett DPM Work Phone: [facility] 05-06-2023 10:40-0500 Body mass index (BMI) [Ratio] 35.87 kg/m2 Jonathan Moffett DPM Work Phone: [facility] 05-06-2023 10:40-0500 Body weight 113.4 kg Jonathan Moffett DPM Work Phone: [facility] 05-06-2023 10:40-0500 Diastolic blood pressure 80 mm[Hg] Jonathan Moffett DPM Work Phone: [facility] 05-06-2023 10:40-0500 Heart rate 79 /min Jonathan Moffett DPM Work Phone: [facility] 05-06-2023 10:40-0500 Systolic blood pressure 133 mm[Hg] Jonathan Moffett DPM Work Phone: [facility] 05-04-2023 13:06-0500 Body mass index (BMI) [Ratio] 34.8 kg/m2 MD Fidel Abbott Work Phone: [facility] 05-04-2023 12:48-0500 Body height 180.34 cm MD Fidel Abbott Work Phone: [facility] 05-04-2023 12:48-0500 Body weight 113.39 kg MD Fidel Abbott Work Phone: [facility] 05-04-2023 11:25-0500 Body temperature 97.3 [degF] MD Fidel Abbott Work Phone: [facility] 05-04-2023 11:25-0500 Diastolic blood pressure 78 mm[Hg] MD Fidel Abbott Work Phone: [facility] 05-04-2023 11:25-0500 Heart rate 64 /min MD Fidel Abbott Work Phone: [facility] 05-04-2023 11:25-0500 Respiratory rate 18 /min MD Fidel Abbott Work Phone: [facility] 05-04-2023 11:25-0500 Systolic blood pressure 177 mm[Hg] MD Fidel Abbott Work Phone: [facility] 11-09-2022 13:10-0400 Blood Pressure Location Jovanny VILLA [facility] 11-09-2022 13:10-0400 Diastolic blood pressure 72 mm[Hg] Jovanny VILLA [facility] 11-09-2022 13:10-0400 Heart rate 78 /min Jovanny VILLA [facility] 11-09-2022 13:10-0400 Systolic blood pressure 148 mm[Hg] Jovanny VILLA [facility] 06-26-2022 14:00-0400 Body temperature 97.81 [degF] Eli Pimentel MD Work Phone: [facility] 06-26-2022 14:00-0400 Diastolic blood pressure 62 mm[Hg] Eli Pimentel MD Work Phone: [facility] 06-26-2022 14:00-0400 Heart rate 70 /min Eli Pimentel MD Work Phone: [employer] [facility] 06-26-2022 14:00-0400 Respiratory rate 18 /min Eli Pimentel MD Work Phone: [employer] [facility] 06-26-2022 14:00-0400 SaO2% (BldA) [Mass fraction] 95 % Eli Pimentel MD Work Phone: [employer] [facility] 06-26-2022 14:00-0400 Systolic blood pressure 144 mm[Hg] Eli Pimentel MD Work Phone: [employer] [facility] 06-26-2022 05:30-0400 Body mass index (BMI) [Ratio] 34.28 kg/m2 Eli Pimentel MD Work Phone: [employer] [facility] 06-26-2022 05:30-0400 Body weight 111.49 kg Eli Pimentel MD Work Phone: [employer] 06-25-2022 04:54-0400 Body height 180.3 cm Eli Pimentel MD Work Phone: [facility] 06-02-2022 12:14-0500 Body height 172.72 cm MD Fidel Abbott Work Phone: [facility] 06-02-2022 12:14-0500 Body mass index (BMI) [Ratio] 41 kg/m2 MD Fidel Abbott Work Phone: [facility] 06-02-2022 12:14-0500 Body weight 122.46 kg MD Fidel Abbott Work Phone: [facility] 06-02-2022 09:52-0500 Body temperature 97 [degF] MD Fidel Abbott Work Phone: [facility] 06-02-2022 09:52-0500 Diastolic blood pressure 73 mm[Hg] MD Fidel Abbott Work Phone: [facility] 06-02-2022 09:52-0500 Heart rate 76 /min MD Fidel Abbott Work Phone: [facility] 06-02-2022 09:52-0500 Systolic blood pressure 155 mm[Hg] MD Fidel Abbott Work Phone: [facility] 03-03-2022 12:06-0500 Body height 180.34 cm MD Fidel Abbott Work Phone: [facility] 03-03-2022 12:06-0500 Body mass index (BMI) [Ratio] 34.8 kg/m2 MD Fidel Abbott Work Phone: [facility] 03-03-2022 12:06-0500 Body weight 113.39 kg MD Fidel Abbott Work Phone: [facility] 03-03-2022 11:37-0500 Body temperature 97.7 [degF] MD Fidel Abbott Work Phone: [facility] 03-03-2022 11:37-0500 Diastolic blood pressure 56 mm[Hg] MD Fidel Abbott Work Phone: [facility] 03-03-2022 11:37-0500 Heart rate 68 /min MD Fidel Abbott Work Phone: [facility] 03-03-2022 11:37-0500 Respiratory rate 18 /min MD Fidel Abbott Work Phone: [facility] 03-03-2022 11:37-0500 Systolic blood pressure 122 mm[Hg] MD Fidel Abbott Work Phone: [facility] Encounters Encounter Date Encounter Type Care Provider Facility Start: 02-14-2024 End: 02-14-2024 Clinisync Result Encounter Generic External Data Provider [facility] External Department Unsolicited Start: 02-14-2024 End: 02-14-2024 Clinisync Result Encounter Generic External Data Provider [facility] External Department Unsolicited Start: 02-08-2024 Registered Recurring Fidel dubose MD Work Phone: [facility] [place] Work Phone: Start: 02-08-2024 End: 02-08-2024 Patient encounter procedure Fidel Abbott MD Work Phone: [facility] [place] Work Phone: Start: 02-08-2024 End: 02-08-2024 ambulatory Fidel Abbott MD Work Phone: [facility] Work Phone: Start: 01-20-2024 End: 01-20-2024 Bamboo flowsheet Fidel Abbott MD Work Phone: [facility] Start: 01-20-2024 End: 01-20-2024 Bamboo flowsheet Fidel Abbott MD Work Phone: [facility] Start: 01-20-2024 End: 01-20-2024 Office outpatient visit 15 minutes Fidel Abbott MD Work Phone: [facility] Comment on above: Urticaria (Primary D x) Start: 01-20-2024 End: 01-20-2024 ambulatory FIDEL ABBOTT Not Available Start: 01-17-2024 End: 01-17-2024 Orders Only Iraj Valdivia MD Work Phone: [facility] Comment on above: Stage 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 (CMS-HCC) (Primary Dx) Start: 01-12-2024 End: 01-12-2024 Telephone encounter Scanning Provider External [facility] Start: 11-18-2023 End: 11-18-2023 ambulatory FIDEL ABBOTT Not Available Start: 11-12-2023 End: 11-12-2023 ambulatory Jovanny VILLA Facility:[facility] Start: 11-12-2023 End: 11-12-2023 Patient encounter procedure Jovanny VILLA [facility] Start: 11-08-2023 End: 11-08-2023 ambulatory Jovanny VILLA Facility:[id number] Start: 10-11-2023 End: 10-11-2023 ambulatory [facility] Start: 10-04-2023 ambulatory Jovanny VILLA Facili ty:[id number] Start: 07-08-2023 End: 07-08-2023 ambulatory MD Fidel Abbott Work Phone: [facility] Work Phone: Start: 07-08-2023 End: 07-08-2023 Departed Referred MD Fidel Abbott Work Phone: [facility] Start: 06-10-2023 End: 06-10-2023 ambulatory JONATHAN MOFFETT Not Available Start: 06-04-2023 End: 06-04-2023 Admission to same day surgery center MD Fidel Abbott Work Phone: [facility] [place] Start: 06-04-2023 End: 06-04-2023 ambulatory Jonathan Moffett Facility:[facility] Start: 06-03-2023 End: 06-03-2023 ambulatory JONATHAN MOFFETT [...] underlying condition with diabetic polyneuropathy, unspecified whether lobsterman insulin use (CMS/HCC); Acute complete paraplegia (CMS/HCC); Acute osteomyelitis of left fibula (CMS/HCC); Foot ulcer, right, with fat layer exposed (CMS/HCC); Venous insufficiency Start: 05-04-2023 End: 05-04-2023 Discharged Recurring MD Fidel Abbott Work Phone: [facility] [place] Work Phone: Start: 05-04-2023 End: 05-04-2023 ambulatory MD Fidel Abbott Work Phone: [facility] Work Phone: Start: 04-29-2023 End: 04-29-2023 ambulatory JONATHAN MOFFETT Not Available Start: 04-29-2023 End: 04-29-2023 ambulatory JONATHAN MOFFETT Not Available Start: 04-15-2023 End: 04-15-2023 ambulatory JONATHAN MOFFETT Not Available Start: 04-06-2023 End: 04-06-2023 ambulatory FIDEL ABBOTT Not Available Start: 04-01-2023 End: 04-01-2023 ambulatory JONATHAN Tellez BETINA Not Available Start: 03-18-2023 End: 03-18-2023 ambulatory JONATHAN Tellez BETINA Not Available Start: 03-04-2023 End: 03-04-2023 ambulatory JONATHAN MOFFETT Not Available Start: 02-23-2023 End: 02-23-2023 ambulatory JONATHAN Tellez BETINA Not Available Start: 02-23-2023 End: 02-23-2023 ambulatory Cathy Brar Facility:[facility] Start: 01-19-2023 End: 01-19-2023 ambulatory Jovanny VILLA Facility:[facility] Start: 01-11-2023 End: 01-11-2023 ambulatory Jovanny VILLA Facility:[id number] Start: 11-09-2022 End: 11-09-2022 Patient encounter procedure Jovanny VILLA [facility] Start: 09-25-2022 End: 09-26-2022 ambulatory FIDEL ABBOTT [facility] Start: 09-18-2022 End: 09-21-2022 ambulatory ASHLEE ERWIN [facility] Start: 09-18-2022 End: 09-20-2022 Subsequent hospital visit by physician [facility] Ultrasound Room 2 At [facility] Ultrasound Comment on above: Cauda equina syndrom e (HCC); Neurogenic bladder; Urinary retention; Urinary incontinence without sensory awareness Start: 2022 End: 2022 ambulatory ANGELES NAGY [facility] Start: 07-02-2022 End: 07-03-2022 [facility] Start: 07-02-2022 End: 07-02-2022 Subsequent hospital visit by physician Fidel Abbott MD Work Phone: [facility] Laboratory Comment on above: Acute kidney injury (HCC); Iron deficiency anemia, unspecified iron deficiency anemia type Start: 06-22-2022 End: 06-26-2022 Evaluation and management of inpatient MAITAS DOSS [facility] Start: 06-22-2022 End: 06-26-2022 Evaluation and management of inpatient Eli Pimentel MD Work Phone: [facility] MED SURG Comment on above: Acute kidney injury (HCC) (Primary Dx); Hyperkalemia; Iron deficiency anemia, unspecified iron deficiency anemia type Start: 06-22-2022 End: 06-22-2022 ambulatory [facility]ELES NAGY [facility] Start: 06-22-2022 End: 06-22-2022 Subsequent hospital visit by physician Fidel Abbott MD Work Phone: [facility] EKG Comment on above: Neurogenic bladder Start: 06-02-2022 End: 06-02-2022 ambulatory MD Fidel Abbott Work Phone: [facility] Work Phone: Start: 06-02-2022 End: 06-02-2022 Discharged Recurring MD iFdel Abbott Work Phone: [facility] Work Phone: Start: 03-14-2022 End: 03-15-[address] CATHY BRAR Facility:[facility] Start: 03-03-2022 End: 03-03-2022 ambulatory MD Fidel Abbott Work Phone: [facility] Work Phone: Start: 03-03-2022 End: 03-03-2022 Discharged Recurring MD Fidel Abbott Work Phone: [facility] [place] Work Phone: Start: 02-26-2022 End: 02-27-[address] CATHY BRAR Facility:[facility] Start: 05-30-2021 End: 05-31-[address] FIDEL ABBOTT Facility:[facility] Start: 04-09-2017 End: 04-13-2017 Evaluation and management of inpatient MICHAELA ONTIVEROS [facility] Procedures Date Procedure Procedure Detail Performing Clinician Start: 02-14-2024 ALL SED RATE Generic External Data Provider Start: 06-04-2023 Investigation of transfusion reaction MD Fidel Abbott Work Phone: Start: 06-04-2023 Debridement MD Fidel Abbott Work Phone: Start: 10-08-2022 Cystourethroscopy with dilation of urethral stricture Jovanny VILLA Start: 09-18-2022 Us retroperitoneal real time w/image complete Ashlee W Mirna TRAINING DEVELOPMENT SPECIALIST - METAL DRILL OPERATOR Work Phone: Start: 2022 Optical urethrotomy Jovanny VILLA Start: 07-02-2022 Basic metabolic panel calcium total Hoda jose Mondragon TRAINING DEVELOPMENT SPECIALIST - [employer] Work Phone: Start: 06-26-2022 End: 06-26-2022 COLONOSCOPY [...] actv qual feces 1 deter Shelly Mondragon TRAINING DEVELOPMENT SPECIALIST - METAL DRILL OPERATOR Work Phone: Start: 06-25-2022 Cul bact xcpt [...] of packed red blood cells Shelly Mondragon TRAINING DEVELOPMENT SPECIALIST - [employer] Work Phone: Start: 06-24-2022 Echo tthrc r-t 2d w/wom-mode compl spec&colr d [facility] METAL DRILL OPERATOR Work Phone: Start: 06-24-2022 Blood typing serologic abo Shelly Mondragon TRAINING DEVELOPMENT SPECIALIST - METAL DRILL OPERATOR Work Phone: Start: 06-24-2022 GLUCOSE, WHOLE BLOOD Matias Doss MD Work Phone: Start: 06-24-2022 End: 06-24-2022 Prothrombin time Shelly Mondragon TRAINING DEVELOPMENT SPECIALIST - METAL DRILL OPERATOR Work Phone: Start: 06-24-2022 VITAMIN B12 & FOLATE Shelly Mondragon TRAINING DEVELOPMENT SPECIALIST - METAL DRILL OPERATOR Work Phone: Start: 06-24-2022 End: 06-25-2022 Rhythm [...] ankle complete minimum 3 views Shelly Mondragon TRAINING DEVELOPMENT SPECIALIST - METAL DRILL OPERATOR Work Phone: Start: 06-23-2022 Lipid panel Zoila [...] Start: 06-22-2022 Basic metabolic panel calcium total Gustavo as Lilo NAZARIO Work Phone: Start: 04-13-2017 POCT GLUCOSE MICHAELA [...] ONTIVEROS Start: 04-11-2017 CBC WITH AUTO DIFFERENTIAL MCIHAELA ONTIVEROS Start: 04-11-2017 POCT GLUCOSE MICHAELA ONTIVEROS [...] 04-09-2017 Radex foot complete minimum 3 views MYRON ONTIVEROS Start: 04-09-2017 POCT GLUCOSE MICHAELA ONTIVEROS [...] 04-09-2017 WOUND OSTOMY EVAL AND TREAT MICHAELA WESTON Start: 04-09-2017 CULTURE, URINE CATHETER MICHAELA ONTIVEROS Start: 04-09-2017 POCT GLUCOSE MICHAELA ONTIVEROS Start: 04-09-2017 HOME BIPAP OR CPAP MICHAELA ONTIVEROS Start: 04-09-2017 INITIATE OXYGEN THERAPY PROTOCOL MICHAELA Sol IM Start: 04-09-2017 POC GLUCOSE FINGERSTICK MICHAELA ONTIVEROS [...] Start: 04-09-2017 INITIATE OXYGEN THERAPY PROTOCOL MICHAELA Sol IM Start: 04-09-2017 NOTIFY PHYSICIAN (SPECIFY) MICHAELA ONTIVEROS Start: 04-09-2017 REASON FOR NO MECHANICAL VTE PROPHYLAXIS MICHAELA ONTIVEROS Start: 04-09-2017 VITAL SIGNS MICHAELA ONTIVEROS Start: 04-08-2017 PATIENT STATUS (DIRECT) MICHAELA ONTIVEROS Appendix structure (body structure) Jovanny VILLA Back structure, excl uding neck (body structure) Jovanny VILLA Cystoscopy Jovanny VILLA Insertion of inferio r vena caval filter Jovanny VILLA Urodynamic studies Jovanny Merritt CAROLINE Plan of Treatment Date Care Activity Detail Author Start: 06-26-2032 Screening for malignant neoplasm of colon [facility] Start: 10-10-2024 Adult BMI Screening Adult BMI Screening [facility] Start: 10-10-2024 Tobacco Screening Tobacco Screening [facility] Start: 05-22-2024 End: 05-22-2024 Patient encounter procedure 05/22/2024 1:15 PM EST Office Visit [facility] [address] [place] [phone] Fidel Abbott MD [address] [place] [phone] [facility] Start: 04-13-2024 End: 04-13-2024 Patient encounter procedure 04/13/2024 2:00 PM EST Office Visit [facility] [place] [address] [place] [phone] Iraj Valdivia MD [address] [place] [address] [facility] Start: 01-20-2024 End: 01-20-2024 Patient encounter procedure 01/20/2024 11:45 AM EDT Office Visit [facility] [address] [place] [phone] Fidel Abbott MD [address] [place] [phone] Arrived [facility] Comment on above: Arrived Start: 11-28-2023 Influenza vaccination [facility] Start: 10-18-2023 End: 10-18-2023 Patient encounter procedure 10/18/2023 10:00 AM EDT Office Visit [facility] [address] [place] [address] Fidel Abbott MD [address] [place] [address] [facility] Start: 09-19-2023 GFR test (Diabetes, CKD 3-4, OR last GFR 15-59) GFR test (Diabetes, CKD 3-4, OR last GFR 15-59) [facility] Start: 09-19-2023 Urine screening for protein Diabetes: Urine Protein Screening [facility] Start: 07-08-2023 Hemoglobin A1c measurement A1C test (Diabetic or Prediabetic) [facility] Start: 07-03-2023 GFR test (Diabetes, CKD 3-4, OR last GFR 15-59) GFR test (Diabetes, CKD 3-4, OR last GFR 15-59) [facility] Start: 06-27-2023 [facility]ening [facility] malignant neoplasm of [facility] Start: 06-26-2023 GFR test (Diabetes, CKD 3-4, OR last GFR 15-59) GFR test (Diabetes, CKD 3-4, OR last GFR 15-59) [facility] Start: 06-26-2023 Screening for malignant neoplasm of colon [facility] Start: 06-24-2023 Lipid panel [facility]ids [facility] Start: 06-23-2023 GFR test (Diabetes, CKD 3-4, OR last GFR 15-59) GFR test (Diabetes, CKD 3-4, OR last GFR 15-59) [employer] Start: 06-04-2023 [facility] Start: 05-20-2023 End: 05-20-2023 Patient encounter procedure 05/20/2023 3:10 PM EST Office [facility] [address] [facility] [address] [place] [phone] Jonathan Moffett DPM [address] [facility] [address] [place] [address] [facility] Start: 05-06-2023 End: 05-06-2023 Patient encounter procedure 05/06/2023 10:20 AM EST Office Visit [facility] [address] [facility] [address] [place] [phone] Jonathan Moffett DPM [address] [facility] [address] [place] [address] [facility] Start: 10-27-2022 Influenza vaccination Flu vaccine (Season Ended) [facility] Start: 10-06-2022 Hemoglobin A1c measurement Diabetes: Hemoglobin A1C [facility] Start: 09-25-2022 End: 09-25-2022 Patient encounter procedure 09/25/2022 Office [address] [facility] Start: 07-08-2022 End: 07-08-2022 Patient encounter procedure 07/08/2022 Office [facility] Start: 2022 End: 2022 Admission to same day surgery center 2022 Surgery IP Unit Angeles Nagy MD [address], [address] [place] [id number] CYSTOSCOPY TRANSURETHROTOMY- DVIU WITH POSS TRANSURETHRAL RESECTION OF BLADDER TUMOR [facility] Comment on above: CYSTOSCOPY TRANSURETHROTOMY- DVIU WITH P OSS TRANSURETHRAL RESECTION OF BLADDER TUMOR Start: 2022 End: 2022 Cystourethroscopy w/internal urethrotomy male CYSTOSCOPY TRANSURETHROTOMY Cauda equina syndrome (HCC) 2022 8:30 AM EDT [facility] Start: 2022 Subsequent hospital visit by physician 2022 Hospital Encounter IP Unit Angeles Nagy MD [address], [address] [place] [address] [facility] Start: 07-01-2022 End: 06-27-2023 Basic metabolic 2000 panel - Serum or Plasma Basic Metabolic Panel Lab Routine Acute kidney injury (HCC) Expected: 07/01/2022, Expires: 06/27/2023 [employer] [facility] Phone: Comment on above: Expected: 07/01/2022, Expires: 4 Start: 07-01-2022 End: 06-27-2023 CBC W Auto Differential panel - Blood CBC with Auto Differential Lab Routine Acute kidney injury (HCC) Iron deficiency anemia, unspecified iron deficiency anemia type Expected: 07/01/2022, Expires: 06/27/2023 [employer] [facility] Phone: Comment on above: Expected: 07/01/2022, Expires: 4 Start: 06-22-2022 Annual Wellness Visit (AWV) Annual Wellness Visit (AWV) [facility] [employer] Start: 10-27-2021 Influenza vaccination Flu vaccine (#1) [facility] [employer] Start: 04-09-2018 Diabetic foot examination Diabetic foot exam [facility] [employer] Start: 04-09-2018 Hemoglobin A1c measurement A1C test (Diabetic or Prediabetic) [facility] [employer] Start: 04-25-2016 Lipid panel Lipids [facility] [employer] Start: 04-24-2016 Urine screening for protein Diabetic Alb to Cr ratio (uACR) test [facility] [employer] Start: 07-08-2011 Administration of varicella zoster vaccine Zoster (Shingles) Vaccine (1 of 2) [facility] Start: 07-08-2011 Shingles vaccine (1 of 2) Shingles vaccine (1 of 2) [facility] [employer] Start: 2006 Screening for malignant neoplasm of colon [facility] [employer] Start: 1980 DTaP,Tdap and Td Vaccines (1 - Tdap) DTaP,Tdap and Td Vaccines (1 - Tdap) [facility] Start: 1980 DTaP/Tdap/Td vaccine (1 - Tdap) DTaP/Tdap/Td vaccine (1 - Tdap) [facility] [employer] Start: 1980 Urine screening for protein Diabetes: Urine Protein Screening [facility] Start: 07-08-1979 Adult BMI Follow Up Plan Adult BMI Follow Up Plan [facility] Start: 07-08-1979 Glaucoma screening Diabetic retinal exam [facility] Start: 07-08-1979 Hepatitis C screening Hepatitis C screen [facility] Start: 1976 HIV screening HIV screen [facility] Start: 1973 Depression Monitoring Depression Monitoring [facility] Start: 1973 Depression Screening Depression Screening [facility] Start: 07-08-1971 Glaucoma screening Diabetes: Retinopathy Screening [facility] Start: 07-08-1967 Pneumococcal 0-64 years Vaccine (1 - PCV) Pneumococcal 0-64 years Vaccine (1 - PCV) [facility] Start: 01-06-1962 COVID-19 Vaccine (#1) COVID-19 Vaccine (#1) [facility] Start: 1961 Screening for malignant neoplasm of colon [facility] End: 01-16-2025 Basic metabolic 2000 panel - Serum or Plasma Basic Metabolic Panel Lab Routine Stage 3a chronic kidney disease ([facility]) 1 Occurrences starting 01/17/2024 until 01/16/2025 [facility] Work Phone: Comment on above: 1 Occurrences starting 01/17/2024 until 01/16/2025 End: 01-16-2025 CBC panel - Blood by Automated count CBC without diff Lab Routine Stage 3a chronic kidney disease ([facility]) 1 Occurrences starting 01/17/2024 until 01/16/2025 [facility] Comment on above: 1 Occurrences starting 01/17/2024 until 01/16/2025 End: 06-27-2022 CBC W Auto Differential panel - Blood CBC auto differential Lab Routine Daily for 5 Days starting 06/23/2022 until 06/27/2022, 4 completed [employer] Work Phone: Comment on above: Daily for 5 Days starting 06/23/2022 unt il 06/27/2022, 4 completed Culture, Wound Aerob ic Only Culture, Wound Aerobic Only Microbiology [employer] Print 06/25/2022 12:20 PM EDT [employer] Work Phone: End: 06-25-2022 Hemoglobin and Hematocrit Hemoglobin and Hematocrit Lab Routine Post Transfusion Post Transfusion Post Transfustion until discontinued starting 06/24/2022, 1 completed [employer] Phone: Comment on above: Post Transfusion Post Transfusion Post T ransfustion until discontinued starting 06/24/2022, 1 completed End: 01-16-2025 Magnesium [Mass/volume] in Serum or Plasma Magnesium Lab Routine Stage 3a chronic kidney disease ([facility]) 1 Occurrences starting 01/17/2024 until 01/16/2025 [employer] Comment on above: 1 Occurrences starting 01/17/2024 until 01/16/2025 Oxygen therapy [[facility] Data Set] Initiate Oxygen Therapy Protocol Respiratory Care Routine Daily until discontinued starting 06/22/2022 [employer] Phone: Comment on above: Daily until discontinued starting 2022 End: 01-16-2025 Parathyroid Hormone, intact Parathyroid Hormone, intact Lab Routine Stage 3a chronic kidney disease ([facility]) 1 Occurrences starting 01/17/2024 until 01/16/2025 [employer] Comment on above: 1 Occurrences starting 01/17/2024 until 01/16/2025 End: 01-16-2025 Phosphate [Mass/volume] in Serum or Plasma Phosphorus Lab Routine Stage 3a chronic kidney disease ([facility]) 1 Occurrences starting 01/17/2024 until 01/16/2025 [employer] Comment on above: 1 Occurrences starting 01/17/2024 until 01/16/2025 End: 06-24-2022 PREPARE RBC (CROSSMATCH), 1 Units PREPARE RBC (CROSSMATCH), 1 Units Blood Bank Routine Once for 1 Occurrences starting 06/24/2022 until 06/24/2022 [employer] Phone: Comment on above: Once for 1 Occurrences starting 06/25/19 until 06/24/2022 End: 01-16-2025 Protein creat ratio Protein creat ratio Lab Routine Stage 3a chronic kidney disease ([facility]) 1 Occurrences starting 01/17/2024 until 01/16/2025 [employer] Comment on above: 1 Occurrences starting 01/17/2024 until 01/16/2025 End: 06-25-2022 Surgical Pathology Surgical Pathology Lab Routine One Time for 1 Occurrences starting 06/25/2022 until 06/25/2022 [employer] Phone: Comment on above: One Time for 1 Occurrences starting 05/29 until 06/25/2022 Surgical Pathology Surgical Path ology Lab Routine Hyperkalemia Release Upon Ordering for 1 Occurrences starting 06/26/2022 [employer] Phone: Comment on above: Release Upon Ordering for 1 Occurrences starting 06/26/2022 End: 06-25-2022 SURGICAL PATHOLOGY REPORT SURGICAL PATHOLOGY REPORT Lab Routine Once for 1 Occurrences starting 06/25/2022 until 06/25/2022 [employer] Phone: Comment on above: Once for 1 Occurrences starting 06/26/19 until 06/25/2022 End: 06-26-2022 SURGICAL PATHOLOGY REPORT SURGICAL PATHOLOGY REPORT Lab Routine Once for 1 Occurrences starting 06/26/2022 until 06/26/2022 [employer] Phone: Comment on above: Once for 1 Occurrences starting 06/27/19 until 06/26/2022 End: 01-16-2025 Urinalysis Urinalysis Lab Routine Stage 3a chronic kidney disease ([facility]) 1 Occurrences starting 01/17/2024 until 01/16/2025 [employer] Comment on above: 1 Occurrences starting 01/17/2024 until 01/16/2025 End: 01-16-2025 Vitamin D 25 hydroxy Vitamin D 25 hydroxy Lab Routine Stage 3a chronic kidney disease ([facility]) 1 Occurrences starting 01/17/2024 until 01/16/2025 [employer] Comment on above: 1 Occurrences starting 01/17/2024 until 01/16/2025 Immunizations Immunization Date Immunization Notes Care Provider [facility] 02-11-2023 influenza, injectabl e, quadrivalent, preservative free MD Fidel Abbott Work Phone: [facility] 02-11-2023 influenza virus vaccine, unspecified formulation Scanning External [email or web address] [facility] 04-10-2017 influenza virus vaccine, unspecified formulation Jovannyfior VILLA [facility] Comment on above: Result Comment: 2022: VIS DATE: 11/02/2014 04-10-2017 influenza, injectabl e, quadrivalent, preservative free Fidel Abbott MD Work Phone: [facility] 01-28-2016 Influenza Vaccine, unspecified formulation Fidel Abbott MD Work Phone: [facility] 01-01-2015 influenza virus vaccine, unspecified formulation Jovanny VILLA [facility] 01-01-2015 influenza, seasonal, injectable MD Fidel Abbott Work Phone: [facility] 01-10-2014 influenza virus vaccine, unspecified formulation Jovanny VILLA [facility] Payers Date Payer Category Payer [employer] [place] [facility] P[facility] ANTHEM [id number] 2022 Self-pay [id number] 2021 [employer] [place] [employer] [facility] BCBS [id number] 2021 Unknown BCBS BCBS xxxxxx [id number] 2021-Present [phone] [address] [place] [address] [id number]. [id number] 2015 Unknown [id number] 2006 Medicare [id number]. [id number] 1961 Unknown [id number] 2.16.840.1.284577.3.579.2. 593 1961 Unknown [id number] 2.16.840.1.545038.3.579.2. 593 1961 Unknown [id number] 2.16.840.1.935084.3.579.2. 593 1961 Unknown [id number] 2.16.840.1.650484.3.579.2. 173 1961 Unknown [id number] 2.16.840.1.399744.3.579.2. 173 1961 Unknown [id number] 2.16.840.1.693635.3.579.2. 173 1961 Unknown [id number] 2.16.840.1.671604.3.579.2. 173 1961 Unknown [id number] 2.16.840.1.854300.3.579.2. 173 1961 Unknown [id number] 2.16.840.1.471198.3.579.2. 173 1961 Unknown [id number] 2.16.840.1.481471.3.579.2. 173 1961 Unknown [id number] 2.16.840.1.600316.3.579.2. 173 1961 Unknown [id number] 2.16.840.1.300728.3.579.2. 1286 1961 Unknown [id number] 2.16.840.1.945973.3.579.2. 1286 1961 Unknown [id number] 2.16.840.1.695322.3.579.2. 727 1961 Unknown [id number] 2.16.840.1.384188.3.579.2. 727 1961 Unknown [id number] 2.16.840.1.971440.3.579.2. 727 1961 Unknown [id number] 2.16.840.1.394004.3.579.2. 727 1961 Unknown [id number] 2.16.840.1.404983.3.579.2. 1259 1961 Unknown [id number] 2.16.840.1.508917.3.579.2. 1259 1961 Unknown [id number] 2.16.840.1.594732.3.579.2. 1259 1961 Unknown [id number] 2.16.840.1.922128.3.579.2. 1259 1961 Unknown [id number] 2.16.840.1.704184.3.579.2. 1259 1961 Unknown [id number] 2.16.840.1.000746.3.579.2. 1259 1961 Unknown [id number] 2.16.840.1.780805.3.579.2. 1258 1961 Unknown [id number] 2.16.840.1.849190.3.579.2. 1258 1961 Unknown [id number] 2.16.840.1.132806.3.579.2. 1258 1961 Unknown [id number] 2.16.840.1.332472.3.579.2. 1258 1961 Unknown [id number] 2.16.840.1.466998.3.579.2. 1258 1961 Unknown [id number] 2.16.840.1.985390.3.579.2. 1258 1961 Unknown [id number] 2.16.840.1.840637.3.579.2. 1258 1961 Unknown [id number] 2.840.1.190989.3.579.2. 9 1959 Medicare [id number] 1959 Unknown [id number] 1959 Unknown [id number] Unknown [id number] 2.16.840.1.504583.3.579.2. 531 Unknown [id number] 2.16840.1.376375.3.579.2. 531 Unknown [id number] 2.16840.1.261289.3.579.2. 531 Unknown [id number] 2.16840.1.513048.3.579.2. 531 Unknown [id number] 2.16840.1.256544.3.579.2. 531 Unknown [id number] 2.16840.1.250698.3.579.2. 531 Social History Date Type Detail Facility Start: 01-27-2022 End: 02-23-2023 Tobacco smoking status NHIS Never smoked tobacco (finding) [facility] Start: 1960 Sex Assigned At Male [facility] Start: 06-22-2022 End: 02-23-2023 Tobacco use and exposure Smokeless tobacco non-user [employer] Phone: Start: 06-22-2022 End: 07-14-2022 Alcohol intake Current non-drinker of alcohol (finding) [employer] Phone: Start: 1960 Sex Assigned At Not on file B ON [employer] Phone: Start: 06-12-2022 End: 06-22-2022 Exposure to SARS-CoV-2 (event) Not sure [facility] Start: 06-23-2022 History SDOH Alcohol Frequency 1 [employer] Phone: Start: 06-23-2022 History SDOH Alcohol Std Drinks 0 [employer] Phone: Tobacco smoking status Never [facility] Start: 04-29-2023 End: 10-17-2023 Sex Assigned At Male [facility] Start: 04-29-2023 End: 01-20-2024 Alcohol intake Lifetime non-drinker (finding) [facility] Start: 04-29-2023 End: 10-17-2023 History of Social function [facility] Start: 11-01-2014 End: 02-09-2024 Sex Male (finding) [facility] Do you belong to any clubs or organizations such as alevism groups, unions, fraternal or athletic groups, or school groups? No [facility] Are you now , , , , never or living with a partner? [facility] How often do you hav e 6 or more drinks on 1 occasion? Never [facility] (I/We) worried wheth er (my/our) food would run out before (I/we) got money to buy more. Never true [facility] Medical Equipment Procedure Code Equipment Code Equipment Origin al Text Equipment Identifier Dates Wound debridement EPIFIX MESH SH EET 4X4.5CM FDA Start: 06-04-2023 Wound debridement Collagen wound matrix dressing ()[id number] FDA Start: 06-04-2023 Wound debridement Collagen wound matrix dressing ()[id number] FDA Start: 06-04-2023 Wound debridement EPIFIX MESH SH EET 4X4.5CM FDA Start: 06-04-2023 Wound debridement EPIFIX MESH SH EET 4X4.5CM FDA Start: 06-04-2023 Amputation, toe Collagen wound matrix dressing ()[id number] FDA Start: 02-10-2023 Graft Subst Resorbable Mini 5cc [id number] Start: 12-25-2016 Comment on above: Description: tobramy icin recostituted with 10ml normal saline ref # [id number] exp 07/27/2018 lot # [id number] Goals Date Patient Goal Desired Activity /State Functional Status Date Assessment Result Facility 11-09-2022 Functional Status N/A [facility] Clinical Notes 07-29-2021 to 02-08-2024 Note Date & Type Note Facility 02-08-2024 Evaluation note Diagnosis Onset Date Resolution Diabetes mellitus due to underlying condition with diabetic neuropathy, wit acute February 07, 2 024 10:48am Pressure injury of left ischium, stage 4 acute January 272023 10:48am Pressure injury of right ischium, stage 4 acute February 08, 2024 10:48am Stage IV pressure ulcer of sacral region acute February 08, 2024 10:48am Cauda equina spinal cord injury chronic February 07 10:48am [facility] Work Phone: 1(516) 464-633710-24-2024 History of Present illness Narrative* Fidel Abbott MD - 01/20/2024 12:25 PM EDTAssociated Problem(s): Urticaria Unclear cause of hives. Treat with prednisone and use hydroxyzine PRN. * Fidel Abbott MD - 01/20/2024 11:45 AM EDT Images from the original note were not included. Subjective Patient ID: Ganga Stinson is a 63 y.o. male who presents for Follow-up and Hives (Waist up hives and itchy). C/o hives for several weeks. Developed red, raised rash on arms, back, and abdomen. Skin very itchyand at times renee. Rash feels rough and raised. Rash and itching worse if hot and sweaty. Denies change in soap, lotions, or detergent. No new exposures and no new foods. No contacts with rash. Tried hydroxyzine and not helping with itching. Not tried creams for rash. Review of Systems Constitutional: Negative for fatigue. Respiratory: Negative for cough, shortness of breath and wheezing. Cardiovascular: Negative for chest pain and palpitations. Gastrointestinal: Negative for abdominal pain, diarrhea, nausea and vomiting. Genitourinary: Negative for dysuria. Objective Physical Exam Constitutional: General: He is not in acute distress. Appearance: Normal appearance. HENT: Head: Normocephalic. Right Ear: Tympanic membrane and ear canal normal. Left Ear: Tympanic membrane and ear canal normal. Eyes: Extraocular Movements: Extraocular movements intact. Pupils: Pupils are equal, round, and reactive to light. Cardiovascular: Rate and Rhythm: Normal rate and regular rhythm. Heart sounds: No murmur heard. No friction rub. No gallop. Pulmonary: Breath sounds: Normal breath sounds. No wheezing, rhonchi or rales. Abdominal: General: Bowel sounds are normal. There is no distension. Palpations: Abdomen is soft. Tenderness: There is no abdominal tenderness. There is no guarding or rebound. Musculoskeletal: Left lower leg: No edema. Neurological: Mental Status: He is alert. Assessment/Plan Problem List Items Addressed This Visit Urticaria - Primary Unclear cause of hives. Treat with prednisone and use hydroxyzine PRN. [id number] Evaluation note* Diagnosis Stage 3a chronic kidney disease ([facility])- Primary documented in this encounter [facility] [id number] Miscellaneous Notes* Telephone Encounter - Fatemeh Cain - 01/12/2024 9:03 AM EDT LM to schedule new pt appt. [facility] Telephone encounter Note* Telephone Encounter - Fatemehivan Cain - 01/12/2024 9:03 AM EDT LM to schedule new pt appt. [facility] Telephone encounter Note* Telephone Encounter - Sandhya Velasquez RN - 05/13/2023 3:00 PM EST Patient called to inquire about the antibiotic that was supposed to be sent after his 05/06 visit. Can you resend? Thank you! [facility] [id number] Miscellaneous Notes* Telephone Encounter - Sandhya Velasquez RN - 05/13/2023 3:00 PM EST Patient called to inquire about the antibiotic that was supposed to be sent after his 05/06 visit. Can you resend? Thank you! documented in this encounterUniversity of Missouri Children's [id number] History of Present illness Narrative* Jonathan Moffett DPM - 05/06/2023 10:20 AM EST Patient: Ganga Rappeleuterio : 1960 PCP: Fidel Abbott MD SUBJECTIVE [...] unable to go to wound care at [facility] Patient also has Integra wound graft to the plantar left foot and area of deficit of skin for closure purposes during surgery and single lobe flap closure. Patient presents today for follow-up and will discuss further wound VAC treatment as patient was wanting to perform however did discuss inpast the complexity of applying this and his situation and may benefit from wound care clinic or home health. Patient currently going at [facility] for decubitus ulcer Patient still awaits MRI approval as had to be resubmitted due to need for new x-ray on previous visit in awaits MRI at [facility] . Referral has been sent to [facility] [place] with attempt to follow-up for complex wound treatment for patient. Patient was reached for call and states that he is unable to make appointment due to transportationissues. He presents today as well as concerns [...] region for possible osteomyelitis to fibula at [facility] ASSESSMENT 12 weeks s/p left 4th and 5th ray amputation with incision and drainage and partial closure with single lobe flap Type 2 diabetic with paraplegia 1. Ulcer of left ankle, with necrosis of bone (HCC) (CMS/HCC) 2. Diabetes mellitus due to underlying condition with diabetic polyneuropathy, unspecified whether lobsterman insulin use (CMS/HCC) 3. Acute complete paraplegia (CMS/HCC) 4. Acute osteomyelitis of left fibula (CMS/HCC) 5. Foot ulcer, right, with fat layer exposed (CMS/HCC) 6. Venous insufficiency PLAN Sharp debridement with 15 blade of left foot ulceration to left fibular bone depth to ulceration toleft lateral anklewith active bleeding noted and removal and excision of fibrotic and necrotic tissue to wound and DSD applied .. Today's procedure is a staged procedure and patient may need further procedures in the future. Pt to have continue with packing as she still has packing available and will pack the wound every other day. Patient awaits MRI clearance and pre- certify by hospital Patient placed on oral antibiotics Patient to follow up with [facility] for decubitus ulcer and instructions given to contact [facility] for follow-up.. Skin flap area of ulceration site appears to be healing and may not need wound VAC at this time however may need a staged procedure further wound grafts in the near future. Patient also is to have possible split-thickness skin grafting in future and this will be depend ontreatment necessary for the left fibular ulcerative region [...] today. Today's procedure is a staged procedure andpatient may need further procedures in the future. This was performed right and left legs Patient awaits MRI Jonathan Moffett DPM documented in this encounterUniversity of Missouri Children's [id number] Progress note Author Cathy Brar [facility] May 04, 2023 1:07pm Note Date/Time May 04, 2023 1 2:48pm [facility] [address] [place] [address] Wound Center Provider Note Signed Patient: Ganga Stinson MR#: [id number] : 1960 Acct:[id number] Age/Sex: 62 / M Copies to: MD [...] did wound start?: years Mode of Arrival/ Streaming Media Specialist: Personal vehicle Assistive Device Used Today: Wheelchair [...] Itching Wound/Ulcer Right Lateral Ankle: Bed Appearance: Strayhorn and Yellow Percent of Wound Bed Granulated/Red: [...] No Odor Right Medial Foot: Bed Appearance: Strayhorn and Yellow Percent of Wound Bed Granulated/Red: 50 Percent of Devitalized: 50 Length (cm): 1.0 Width (cm): 1.0 Depth (cm): 0.3 CM Sq: 1.000 Surrounding Tissue Appearance: Hyperpigmented Surrounding Tissue Temp: Warm Drainage Amount: Moderate Drainage Description: Serosanguineous Drainage Odor: No Odor Sacrum: Bed Appearance: Beefy Red, Strayhorn and Yellow Percent of Wound Bed Granulated/Red: 90 Percent of Devitalized: 10 Length (cm): 2.9 Width (cm): 1.5 Depth (cm): 2.5 CM Sq: 4.350 Undermining Position: 360 deepest at 9:00 Undermining Depth: 4.0 Surrounding Tissue Appearance: Hyperpigmented, Macerated and Callous Surrounding Tissue Temp: Warm Drainage Amount: Large Drainage Description: Serosanguineous Drainage Odor: No Odor Right Ischium: Bed Appearance: Beefy Red, Strayhorn and Yellow Percent of Wound Bed Granulated/Red: 90 Percent of Devitalized: 10 Length (cm): 5.3 Width (cm): 7.5 Depth (cm): 4.0 CM Sq: 39.750 Surrounding Tissue Appearance: Strayhorn, Macerated and Callous Surrounding Tissue Temp: Warm Drainage Amount: Large Drainage Description: Serosanguineous Drainage Odor: No Odor Left Ischium: Bed Appearance: Beefy Red and Strayhorn Percent of Wound Bed Granulated/Red: 100 Percent [...] underlying condition with diabetic neuropathy,unspecified; Z79.4 - snf (current) use of insulin (5) Foot ulcer [...] signed by MD Cathy Brar> 05/04/23 1307 [facility] Work Phone: [phone]) 684-949908-14-2023 Hospital Discharge instructions Patient Education 11/09/2022 14:08:53 [...] Follow these instructions at home: Medicines Take tpyc-rkg-mumrunj and prescription medicines only as told by [...] provider. Document Revised: 12/04/2020 Document Reviewed: 12/04/2020 [employer]Halo Patient Education 2022 [employer]. Follow Up Care 10/13/2022 11:18:02 With:ALLEN NAZARIO, Jovanny Christie, URL Address: [facility] [address] , [place] [address]- [phone] When: Unknown Comments:sched cysto [facility] Titi 03-31-2023 History of Present illness Narrative* Dragan [...] go. Call light within reach. * Madelin Hopkins, FANI - 06/26/2022 12:01 PM EDT Physical Therapy Facility/Department: [facility] MED SURG Daily Treatment Note NAME: [...] 06/26/2022 12:00 PM EDT Occupational Therapy Facility/Department: [facility] MED SURG Daily Treatment Note NAME: [...] 06/26/2022 9:35 AM EDT [facility] with RN. [...] Crockett RN - 06/26/2022 3:00 AM EDT Tail Edger at bedside for wound dressing change- pt incontinent of bowels. See flow sheet for details. * Panchito Crockett RN - 06/26/2022 1:30 AM EDT Pt incontinent of stool. Tail Edger at bedside for wound change dressing per order- see flow sheet for details. * Panchito Crockett RN - 06/26/2022 12:50 AM EDT Patient at bedside for reassessment and vitals- see flow sheet for details. Pt remains alert and oriented c4-calm and cooperative. GoLYTELY at bedside and selling underwriter encourages patient to consume fluid- pt validates understanding. Patient currently denying pain and discomfort. Denying any additional needs, call light placed within reach, bed in lowest position. Tail Edger encourages patient to call out for assistance. Will continue to monitor. * Panchito Crockett RN - 06/26/2022 12:45 AM EDT Tail Edger at bedside- pt incontinent of stool- wound dressing changed per order. See flow sheet. * Panchito Crockett RN - 06/25/2022 10:05 PM EDT Tail Edger at bedside to for wound dressing change per order. See MAR for details. * Eloise Lopez PTA - 06/25/2022 3:56 PM EDT Physical Therapy Facility/Department: [facility] MED SURG Daily Treatment Note NAME: [...] bed. Supine BLE PROM exercises in all [id number] ea. Seated EOB AROM in LAQ 2x [...] never been a smoker. He saw a hired help at [facility] 2 years ago in 2020. At [...] follows with wound clinic at [facility]. Mr. Stinson also denied any current or recent chest pain, abdominal pain, bleeding problems, problems with his medications or any other concerns at this time. Past Medical History: Diagnosis Date Abnormal EKG 06/23/2022 Acute kidney injury superimposed on CKD (HCC) 06/23/2022 Cauda equina syndrome ([facility]) 2004 Depression Hypertension MRSA (methicillin [...] HISTORY Right 04/10/2017 I&D rt foot/leg wounds AR I&D BELOW FASCIA FOOT 1 BURSAL SPACE Right 12/25/2016 FOOT DEBRIDEMENT INCISION AND DRAINAGE, 5TH DIGIT, PARTIAL AMB. PLACEMENT OF ANTIBOTIC BEADS performed by Gabriel Haile DPM at [facility] OR AR I&D BELOW FASCIA FOOT 1 BURSAL SPACE Right 04/10/2017 RIGHT ANKLE AND RIGHT HEEL DEBRIDEMENT INCISION AND DRAINAGE WITH CULTURES SENT performed by William Jimenez MD at [facility] OR AR OFFICE/OUTPT VISIT,PROCEDURE ONLY Right 06/14/2017 FOOT DEBRIDEMENT INCISION AND DRAINAGE-ANKLE INCLUDING BONE BIOPSY performed by Ro Husseint [facility] OR TOE AMPUTATION Right 12/25/2016 right fifth toe amputation with I&D, ATB beads per Dr. Haile VENA CAVA FILTER PLACEMENT [facility] [facility] filter Social History: Social History Tobacco Use [...] Pressure injury of right ankle, stage 4 ([facility]) 06/24/2022 Open wound of right ankle 12/30/2016 Mixed hyperlipidemia 04/25/2015 Hyponatremia 04/25/2015 Diabetes mellitus ([facility]) 07/02/2011 Paraplegia ([facility]) 03/12/2011 MSSA (methicillin susceptible Staphylococcus aureus) infection 05/28/2017 Bacterial infection 02/17/2017 Enterococcus faecalis infection 12/28/2016 Skin ulcer of right heel with fat layer exposed ([facility]) 09/02/2016 Skin ulcer of right 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 ([facility]) 04/25/2015 Decubitus ulcer of coccygeal region 07/19/2013 Cauda equina syndrome ([facility]) 12/09/2011 Open wound of knee, leg (except thigh), and ankle, complicated 02/25/2011 Acute kidney injury superimposed on CKD ([facility]) 06/23/2022 Abnormal EKG 06/23/2022 Neurogenic bladder 06/23/2022 Hyperkalemia 06/22/2022 Osteomyelitis of ankle or foot, right, acute ([facility]) Decubitus ulcer of coccygeal region, stage 4 ([facility]) 04/09/2017 Cellulitis 04/08/2017 Morbid obesity due to excess calories ([facility]) 01/01/2017 Acute on chronic renal failure ([facility]) 12/30/2016 Osteomyelitis of right foot ([facility]) Hypertension Depression PLAN: Pre-Op Clearance: Pre-Operative Risk assessment using 2014 ACC/AHA guidelines Emergent procedure No Active Cardiac Condition No (decompensated HF, Arrhythmia, MT <3 weeks, severe valve disease) Risk Level [...] with the plan. Sincerely, Zoila Villafuerte PA-C [facility] Airway Controller [address] [place], [place] [id number] , I believe that the risk of [...] on CKD (HCC) 06/23/2022 Cauda equina syndrome ([facility]) 2004 Depression Hypertension MRSA (methicillin resistant staph aureus) culture positive 04/10/2017 right ankle Open wound of right ankle 12/30/2016 Paralysis of both lower limbs ([facility]) Paraplegia ([facility]) Type II or unspecified type diabetes mellitus without mention of complication, not stated as uncontrolled Unspecified sleep apnea Past Surgical History: Procedure Laterality Date APPENDECTOMY BACK SURGERY X2 OTHER SURGICAL HISTORY Right 04/10/2017 I&D rt foot/leg wounds AR I&D BELOW FASCIA FOOT 1 BURSAL SPACE Right 12/25/2016 FOOT DEBRIDEMENT INCISION AND DRAINAGE, 5TH DIGIT, PARTIAL AMB. PLACEMENT OF ANTIBOTIC BEADS performed by Gabriel Haile DPM at [facility] OR AR I&D BELOW FASCIA FOOT 1 BURSAL SPACE Right 04/10/2017 RIGHT ANKLE AND RIGHT HEEL DEBRIDEMENT INCISION AND DRAINAGE WITH CULTURES SENT performed by William Jimenez MD at [facility] OR AR OFFICE/OUTPT VISIT,PROCEDURE ONLY Right 06/14/2017 FOOT DEBRIDEMENT INCISION AND DRAINAGE-ANKLE INCLUDING BONE BIOPSY performed by Ro Husseint [facility] OR TOE AMPUTATION Right 12/25/2016 right fifth toe amputation with I&D, ATB beads per Dr. Haile VENA CAVA FILTER PLACEMENT [place] [facility] filter Allergies Allergen Reactions Vancomycin States had [...] Daily, Matias Doss MD, 1 tablet at 06/25/2224 amLODIPine (NORVASC) tablet 10 mg, 10 mg, Oral, Daily, Matias Doss MD, 10 mg at 06/25/22722 atenolol (TENORMIN) tablet 100 mg, 100 mg, Oral, Daily, Matias Doss MD, 100 mg at 06/25/22722 fenofibrate (TRIGLIDE) tablet 160 mg, 160 mg, Oral, Daily, Matias Doss MD, 160 mg at 06/25/22 0724 citalopram (CELEXA) tablet 40 mg, 40 mg, Oral, Daily, Matias Doss MD, 40 mg at 06/25/22722 clindamycin (CLEOCIN) 600 mg in dextrose 5 % 50 mL IVPB, 600 mg, IntraVENous, Q8H, Shelly Mondragon, TRAINING DEVELOPMENT SPECIALIST - METAL DRILL OPERATOR, Stopped at 06/25/22 09 sodium hypochlorite (DAKINS) 0.125 % external solution, [...] Matias Doss MD, 5,000 Units at 06/23/22 5363 PE: VSS, Afebrile, NAD, A&O x 3, Aloof Labs: as above RLE ; lateral ankle ; FT+ ulcerative wound , +PTB IMP: stage 4 ankle decubitus, appaarent bone involvement Stable for minor bedside procedure Tx: see procedure notes P: see orders / AVS Yakov Min DPM 06/25/2022 12:28 PM * LAURENT Gomez - 06/25/2022 11:55 AM EDT Occupational Therapy Facility/Department: [facility] MED SURG Daily Treatment Note NAME: [...] MD 8:05 AM 06/25/2022 * Shelly Mondragon, TRAINING DEVELOPMENT SPECIALIST - METAL DRILL OPERATOR - 06/25/2022 7:34 AM EDT Images from [...] labs-Hgb 7.6 today Nutrition status: morbid obesity Redrying Machine Operator consult initiated Hospital Prophylaxis: DVT: Heparin Stress Ulcer: na Disposition: Shared decision making: All test results, treatment options and disposition options were discussed with the patient today Social determinants of health that may impact management: none Code status: Full Code Disposition: Discharge plan is home [facility] Advanced Care Planning documentation: [x] I [...] PERFORMANCE] Shelly Mondragon APRN - DOLLY , ESTELLE, COVER ASSEMBLER-C Hospitalist Medicine 06/25/2022, 7:34 AM IVETT Newman Associated attestation - Matias Doss MD - 06/25/2022 7:34 PM EDT Images from the original note were not included. [address] [place], [place], [address] Attestation Patient: Ganga Evans Alloway Date of Admission: 06/22/2022 4:21 PM Hospital Day # 3 Date of Evaluation: 06/25/2022 I personally evaluated and examined the patient [id number] in conjunction with the PA/COVER ASSEMBLER and agree with the management and dispostition of the patient. Please see the PA/COVER ASSEMBLER's note for full details.My kohli findings are: [...] Intake/Output Summary (Last 24 hours) at 06/25/2022 193 Last data filed at 06/25/2022 1845 Gross [...] with the plan as outlined in the COVER ASSEMBLER/PA's note Disposition: Discharge plan is pending Please note that this chart was generated using voice recognition Rainbow dictation software. Although every effort was made to ensure the accuracy of this automated armored car driver, some errors in armored car driver may have occurred. Matias Doss MD 06/25/2022 [...] Samayoa RN - 06/25/2022 12:52 AM EDT Tail Edger at bedside at this time to perform [...] Samayoa RN - 06/24/2022 6:43 PM EDT Tail Edger at bedside at this time to perform [...] 06/24/2022 4:57 PM EDT Physical Therapy Facility/Department: [facility] MED SURG Daily Treatment Note NAME: [...] never been a smoker. He saw a hired help at [facility] 2 years ago in 2020. At [...] follows with wound clinic at [facility]. Mr. Stinson also denied any [...] Paralysis of both lower limbs (HCC) Paraplegia ([facility]) Type II or unspecified type diabetes mellitus without mention of complication, not stated as uncontrolled Unspecified sleep apnea CURRENT ALLERGIES: Vancomycin REVIEW OF SYSTEMS: 14 systems were reviewed. Pertinent positives and negatives as above, all else negative. Past Surgical History: Procedure Laterality Date APPENDECTOMY BACK SURGERY X2 OTHER SURGICAL HISTORY Right 04/10/2017 I&D rt foot/leg wounds AR I&D BELOW FASCIA FOOT 1 BURSAL SPACE Right 12/25/2016 FOOT DEBRIDEMENT INCISION AND DRAINAGE, 5TH DIGIT, PARTIAL AMB. PLACEMENT OF ANTIBOTIC BEADS performed by Gabriel Haile DPM at [facility] OR AR I&D BELOW FASCIA FOOT 1 BURSAL SPACE Right 04/10/2017 RIGHT ANKLE AND RIGHT HEEL DEBRIDEMENT INCISION AND DRAINAGE WITH CULTURES SENT performed by William Jimenez MD at [facility] OR AR OFFICE/OUTPT VISIT,PROCEDURE ONLY Right 06/14/2017 FOOT DEBRIDEMENT INCISION AND DRAINAGE-ANKLE INCLUDING BONE BIOPSY performed by Ro Husseint [facility] OR TOE AMPUTATION Right 12/25/2016 right fifth toe amputation with I&D, ATB beads per Dr. Haile VENA CAVA FILTER PLACEMENT [facility] [facility] filter Social History: Social History Tobacco Use [...] Mixed hyperlipidemia 04/25/2015 Hyponatremia 04/25/2015 Diabetes mellitus ([facility]) 07/02/2011 Paraplegia ([facility]) 03/12/2011 MSSA (methicillin susceptible Staphylococcus aureus) infection 05/28/2017 Bacterial infection 02/17/2017 Enterococcus faecalis infection 12/28/2016 Skin ulcer of right heel with fat layer exposed ([facility]) 09/02/2016 Skin ulcer of right 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 ([facility]) 04/25/2015 Decubitus ulcer of coccygeal region 07/19/2013 Cauda equina syndrome ([facility]) 12/09/2011 Open wound of knee, leg (except thigh), and ankle, complicated 02/25/2011 Acute kidney injury superimposed on CKD ([facility]) 06/23/2022 Abnormal EKG 06/23/2022 Neurogenic bladder 06/23/2022 Hyperkalemia 06/22/2022 Osteomyelitis of ankle or foot, right, acute ([facility]) Decubitus ulcer of coccygeal region, stage 4 ([facility]) 04/09/2017 Cellulitis 04/08/2017 Morbid obesity due to excess calories ([facility]) 01/01/2017 Acute on chronic renal failure ([facility]) 12/30/2016 Osteomyelitis of right foot ([facility]) Hypertension Depression PLAN: Abnormal EKG [...] with the plan. Sincerely, Zoila Villafuerte PA-C [facility] Airway Controller [address] [place] [address] , I believe that the risk of [...] 06/24/2022 10:32 AM EDT Occupational Therapy Facility/Department: [facility] MED SURG Daily Treatment Note NAME: [...] Bed Mobility Training: (positioned on side for .[employer] Dom[employer] to complete ultrasound at end of session) [...] on 06/25/2022 6pm KATERINA ATKINS MD [facility] Gastroenterology * Shelly Mondragon APRN - DOLLY - 06/24/2022 7:34 AM EDT Images from [...] IRon Monitor labs Nutrition status: morbid obesity Redrying Machine Operator consult initiated Hospital Prophylaxis: DVT: Heparin Stress Ulcer: na Disposition: Shared decision making: All test results, treatment options and disposition options were discussed with the patient today Social determinants of health that may impact management: none Code status: Full Code Disposition: Discharge plan is home [facility] Advanced Care Planning documentation: [x] I [...] PERFORMANCE] Shelly Mondragon APRN - DOLLY , ESTELLE, COVER ASSEMBLER-C Hospitalist Medicine 06/24/2022, 7:34 AM Blood Transfusion [...] from the original note were not included. [address] , [place], [place], [address] Attestation Patient: Ganga Evans Alloway Date of Admission: 06/22/2022 4:21 PM Hospital Day # 2 Date of Evaluation: 06/24/2022 I personally evaluated and examined the patient [id number] in conjunction with the PA/COVER ASSEMBLER and agree with the management and dispostition of the patient. Please see the PA/COVER ASSEMBLER's note for full details.My kohli findings are: [...] with the plan as outlined in the COVER ASSEMBLER/PA's note Disposition: Discharge plan is pending, GI, Cardiology, Urology consultations, Transfuse if pRBC <7, wound care to the affected area and monitor electrolytes. Please note that this chart was generated using voice recognition [employer] dictation software. Although every effort was made to ensure the accuracy of this automated armored car driver, some errors in armored car driver may have occurred. Matias Doss MD 06/24/2022 9:39 PM * Geneva Samayoa RN - 06/24/2022 2:46 AM EDT Spoke with Dr. Doss and informed him of critical lab levels. No new orders. * Geneva Samayoa RN - 06/24/2022 2:15 AM EDT Tail Edger at bedside at this time to perform [...] this time and patient transferred over to [place] bed. * Geneva Samayoa RN - 06/23/2022 9:00 PM EDT Tail Edger at bedside at this time to perform [...] 06/23/2022 4:35 PM EDT Physical Therapy Facility/Department: [facility] MED SURG Daily Treatment Note NAME: [...] 06/23/2022 4:31 PM EDT Occupational Therapy Facility/Department: [facility] MED SURG Daily Treatment Note NAME: [...] 1325 Time Out 1403 Minutes 38 LEIGH Khoury/L * Alix Quezada - 06/23/2022 2:16 PM EDT New foam dressing placed on patients coccyx after having a BM. * Sarah Hare PT - 06/23/2022 2:08 PM EDT Physical Therapy Facility/Department: [facility] MED SURG Physical Therapy Initial Assessment [...] Ambulation Assistance: Non-ambulatory Transfer Assistance: Independent Active Design Painter: No Additional Comments: Pt. with hx of [...] Stair Climbing Raw Score : 11 (06/23/22 140) AM-PAC Inpatient without Stair Climbing T-Scale Score [...] 24 Sarah Hare, PT, DPT * Rae Zamudio OT - 06/23/2022 11:26 AM EDT Occupational Therapy Facility/Department: [facility] MED SURG Occupational Therapy Initial Assessment [...] Ambulation Assistance: Non-ambulatory Transfer Assistance: Independent Active Design Painter: No Additional Comments: Pt. with hx of [...] to Severe Extremities (+ 2 pitting BLE) Battery Container Tester Aluminum Strength: Not Performed Nutrition Assessment: Altered nutrition [...] Anthropometric Measures: Height: 5' 11 (180.3 cm) [place] Body Weight (IBW): 172 lbs (78 kg) [...] Used for Energy Requirements: Current Energy (kcal/day): 3870-5150 (20-23/kg) Weight Used for Protein Requirements: [place] Protein (g/day): 109-133g (1.4-1.7g/kg) Method Used for [...] Continue Oral Nutrition Supplement [address], [place] Contact: [phone] * Panchito Crockett RN - 06/23/2022 1:00 AM EDT Tail Edger at bedside for reassessment-see flow sheet for details. Patient remains alert and oriented x4-calm and cooperative. Patient continues to deny pain and discomfort. Incontinence and stewart care provided. Denying any additional needs, call light placed within reach, bed in lowest position and alarm engaged to promote patient safety. Will continue to monitor. * Panhcito Crockett RN - 06/23/2022 12:00 AM EDT Tail Edger attempted to place rowe catheter at this time- unable to advance 16 FR catheter. Rn Finished Metal Repairer notified and will attempt- will continue to monitor. Patient reports no pain or discomfort. * Panchito Crockett RN - 06/22/2022 11:12 PM EDT Tail Edger phoned Dr. Doss at this informing physician [...] continue to monitor. documented in this encounterBON PHOENIX INDIAN MEDICAL CENTERAjungo Work Phone: [phone] 809-263103-31-2023 Hospital Discharge instructions* Discharge Instructions* Fabby Felder [...] most local grocery stores, pharmacies, and chain [employer]stores. If you have any questions about your diet or nutrition, call the hospital and ask for the dietitian. Regular documented in this encounterB[facility] Phone: [phone] 393-986903-07-2023 Progress note Author Cathy Brar [facility] June 02, 2022 12:14pm Note Date/Time June 02, 2022 12:1 4pm [facility] [address] [place] [address] Wound Center Provider Note Signed Patient: Ganga Stinson MR#: [id number] : 1960 Acct:[id number] Age/Sex: 61 / M Copies to: MD Fidel Whitmore MD~ HPI Date of Visit Date of Visit: Date of Service: 06/02/2022 Time of Service: 12:01 Narrative HPI: Patient is being followed for his chronic bilateral ischial, sacral and right foot ulcers. His is doing his dressing changes. Patient has been having some right hip pain and underwent a CT scan in [place] on 03/14/2022. This showed slight deepening of [...] Constitutional: Denies fever(s) Integumentary/Breasts Skin/Breast: Reports wounds [facility] Medical History (Updated 06/02/22 @ [...] Sacrum: Bed Appearance: Beefy Red, Bone Palpable, Strayhorn and Yellow Percent of Wound Bed Granulated/Red: 90 Percent of Devitalized: 10 Length (cm): 3.5 Width (cm): 1.8 Depth (cm): 2 CM Sq: 6.300 Undermining Position: 360 Undermining Depth: 3 Surrounding Tissue Appearance: Strayhorn Surrounding Tissue Temp: Warm Drainage Amount: Large Drainage Description: Serosanguineous Drainage Odor: No Odor Left Ischium: Bed Appearance: Beefy Red, Bone Palpable, Strayhorn and Yellow Percent of Wound Bed Granulated/Red: 90 Percent of Devitalized: 10 Length (cm): 7 Width (cm): 6 Depth (cm): 5.5 CM Sq: 42.000 Surrounding Tissue Appearance: Strayhorn Surrounding Tissue Temp: Warm Drainage Amount: Large Drainage Description: Serosanguineous Drainage Odor: No Odor Right Ischium: Bed Appearance: Beefy Red, Bone Palpable, Strayhorn and Yellow Percent of Wound Bed Granulated/Red: 90 Percent of Devitalized: 10 Length (cm): 0.7 Width (cm): 1 Depth (cm): 4 CM Sq: 0.700 Surrounding Tissue Appearance: Strayhorn Surrounding Tissue Temp: Warm Drainage Amount: Moderate Drainage Description: Serosanguineous Drainage Odor: No Odor Left Ankle: Bed Appearance: Brown, Strayhorn and Yellow Percent of Wound Bed Granulated/Red: 5 Percent of Devitalized: 95 Length (cm): 3.5 Width (cm): 2.5 Depth (cm): 0.1 CM Sq: 8.750 Surrounding Tissue Appearance: Strayhorn Surrounding Tissue Temp: Warm Drainage Amount: Moderate Drainage Description: Serosanguineous Drainage Odor: No Odor Medial Ankle: Bed Appearance: Brown, Strayhorn and Yellow Percent of Wound Bed Granulated/Red: 50 Percent of Devitalized: 50 Length (cm): 3.5 Width (cm): 4 Depth (cm): 0.1 CM Sq: 14.000 Surrounding Tissue Appearance: Strayhorn Surrounding Tissue Temp: Warm Drainage Amount: Moderate Drainage Description: Serosanguineous Drainage Odor: No Odor Medial Foot: Bed Appearance: Black Dry, Brown, Strayhorn and Hardware Percent of Wound Bed Granulated/Red: 5 Percent of Devitalized: 95 Length (cm): 2 Width (cm): 1.2 Depth (cm): 0.1 CM Sq: 2.400 Surrounding Tissue Appearance: Strayhorn Surrounding Tissue Temp: Warm Drainage Amount: Moderate [...] Diabetes mellitus type: type 2 Diabetes mellitus mcc insulin use:with lobsterman use Diabetes mellitus complication status: with skin complications Diabetes mellitus complication detail: with other skin ulcer Qualified Code(s): E11.622 - Type 2 diabetes mellitus with other skin ulcer; Z79.4 - snf (current) use of insulin Code(s): E11.9 - [...] signed by MD Cathy Brar> 06/02/22 [facility] Work Phone: [phone] 895-460012-06-2022 Progress note Author Cathy Brar [facility] March 03, 2022 12:06pm Note Date/Time March 03, 2022 1 2:06pm [facility] [address] [place] [address] Wound Center Provider Note Signed Patient: Ganga Stinson MR#: [id number] : 1960 Acct:[id number] Age/Sex: 61 / M Copies to: MD [...] Ischium: Bed Appearance: Beefy Red, Bone Palpable, Strayhorn and Yellow Percent of Wound Bed Granulated/Red: [...] Bed Appearance: Beefy Red, Bone Palpable, Devitalized, Strayhorn, Yellow and Rolled Edges Percent of Wound Bed Granulated/Red: 50 Percent of Devitalized: 50 Length (cm): 0.7 Width (cm): 0.8 Depth (cm): 4.0 CM Sq: 0.560 Undermining Position: 0 Undermining Depth: 0 Surrounding Tissue Appearance: Macerated and Rolled Edges Surrounding Tissue Temp: Warm Drainage Amount: Moderate Drainage Description: Serosanguineous Drainage Odor: No Odor Lidocaine Applied Topically: 2% Jelly Right Buttock: Bed Appearance: Devitalized, Strayhorn and Yellow Percent of Wound Bed Granulated/Red: 100 Percent of Devitalized: 0 Length (cm): 0 Width (cm): 0 Depth (cm): 0 CM Sq: 0.000 Surrounding Tissue Appearance: Hyperpigmented Surrounding Tissue Temp: Warm Drainage Amount: None Drainage Description: Serosanguineous Drainage Odor: No Odor Lidocaine Applied Topically: 2% Jelly Right Lower Medial Leg: Bed Appearance: Strayhorn and Yellow Percent of Wound Bed Granulated/Red: [...] Diabetes mellitus type: type 2 Diabetes mellitus mcc insulin use:with mcc use Diabetes mellitus complication status: with skin complications Diabetes mellitus complication detail: with other skin ulcer Qualified Code(s): E11.622 - Type 2 diabetes mellitus with other skin ulcer; Z79.4 - termination clerk (current) use of insulin Code(s): E11.9 - [...] signed by MD Cathy Brar> 03/03/22 [facility] [facility] Work Phone: 1([phone]) 626-317312-02-2022 NotePROCEDURE: XR HIP RT 2 3V W [...] Electronically authenticated by: KHADAR MEDINA Date: 2022-02-27 07:17[facility]11-01-2022 Progress note Author Cathy Brar [facility] January 27, 2022 12:11pm Note Date/Time January 27, 2022 1 2:11pm [facility] [address] [place] [address] Wound Center Provider Note Signed Patient: Ganga Stinson MR#: [id number] : 1960 Acct:[id number] Age/Sex: 61 / M Copies to: MD [...] 360 Undermining Depth: 3.5 Surrounding Tissue Appearance: Strayhorn and Rolled Edges Surrounding Tissue Temp: Warm Drainage Amount: Large Drainage Description: Serosanguineous Drainage Odor: No Odor Lidocaine Applied Topically: 2% Jelly Right Heel: Bed Appearance: Beefy Red, Strayhorn and Yellow Percent of Wound Bed Granulated/Red: 50 Percent of Devitalized: 50 Length (cm): 1.0 Width (cm): 1.4 Depth (cm): 0.1 CM Sq: 1.400 Surrounding Tissue Appearance: Peeling and Dryness Surrounding Tissue Temp: Warm Drainage Amount: Small Drainage Description: Serosanguineous Drainage Odor: No Odor Lidocaine Applied Topically: 2% Jelly Right Ischium: Bed Appearance: Beefy Red, Bone Palpable, Strayhorn and Yellow Percent of Wound Bed Granulated/Red: [...] Bed Appearance: Beefy Red, Bone Palpable, Devitalized, Strayhorn, Yellow and Rolled Edges Percent of Wound Bed Granulated/Red: 50 Percent of Devitalized: 50 Length (cm): 1.5 Width (cm): 1.0 Depth (cm): 4.0 CM Sq: 1.500 Undermining Position: 10-3:00 Undermining Depth: 3.5 Surrounding Tissue Appearance: Macerated and Rolled Edges Surrounding Tissue Temp: Warm Drainage Amount: Moderate Drainage Description: Serosanguineous Drainage Odor: No Odor Lidocaine Applied Topically: 2% Jelly Right Buttock: Bed Appearance: Devitalized, Strayhorn and Yellow Percent of Wound Bed Granulated/Red: 100 Percent of Devitalized: 0 Length (cm): 0 Width (cm): 0 Depth (cm): 0 CM Sq: 0.000 Surrounding Tissue Appearance: Strayhorn Surrounding Tissue Temp: Warm Drainage Amount: None Drainage Description: Serosanguineous Drainage Odor: No Odor Lidocaine Applied Topically: 2% Jelly Right Lower Medial Leg: Bed Appearance: Strayhorn and Yellow Percent of Wound Bed Granulated/Red: [...] Diabetes mellitus type: type 2 Diabetes mellitus lobsterman insulin use:with lobsterman use Diabetes mellitus complication status: with skin complications Diabetes mellitus complication detail: with other skin ulcer Qualified Code(s): E11.622 - Type 2 diabetes mellitus with other skin ulcer; Z79.4 - snf (current) use of insulin Code(s): E11.9 - [...] signed by MD Cathy Brar> 01/27/22 [address] [facility] Work Phone: 1(691) 183-767909-27-2022 Progress note Author Cathy Brar [facility] December 23, 2021 12:32pm Note Date/Time December 23, 2021 12:32pm [facility] [address] [place] [address] Wound Center Provider Note Signed Patient: Ganga Stinson MR#: [id number] : 1960 Acct:[id number] Age/Sex: 61 / M Copies to: MD [...] Bed Appearance: Beefy Red, Bone Palpable, Devitalized, Strayhorn and Yellow Percent of Wound Bed Granulated/Red: 95 Percent of Devitalized: 5 Length (cm): 3.2 Width (cm): 2 Depth (cm): 2.5 CM Sq: 6.400 Undermining Position: 10-4:00 Undermining Depth: 5 Surrounding Tissue Appearance: Strayhorn and Macerated Surrounding Tissue Temp: Warm Drainage Amount: Large Drainage Description: Serosanguineous Drainage Odor: No Odor Lidocaine Applied Topically: 2% Jelly Right Heel: Bed Appearance: Beefy Red, Devitalized, Epithelial Tissue or Bridge, Strayhorn and Yellow Percent of Wound Bed Granulated/Red: 90 Percent of Devitalized: 10 Length (cm): 3 Width (cm): 8 Depth (cm): 0.1 CM Sq: 24.000 Surrounding Tissue Appearance: Peeling and Dryness Surrounding Tissue Temp: Warm Drainage Amount: Large Drainage Description: Serosanguineous Drainage Odor: No Odor Lidocaine Applied Topically: 2% Jelly Right Ischium: Bed Appearance: Beefy Red, Bone Palpable, Devitalized, Epithelial Tissue or Bridge, Strayhorn and Yellow Percent of Wound Bed Granulated/Red: 95 Percent of Devitalized: 5 Length (cm): 5 Width (cm): 5 Depth (cm): 5 CM Sq: 25.000 Undermining Position: 12-6:00 Undermining Depth: 1 Surrounding Tissue Appearance: Macerated Surrounding Tissue Temp: Warm Drainage Amount: Large Drainage Description: Serosanguineous Drainage Odor: No Odor Lidocaine Applied Topically: 2% Jelly Left Ischium: Bed Appearance: Beefy Red, Bone Palpable, Devitalized, Strayhorn and Yellow Percent of Wound Bed Granulated/Red: 95 Percent of Devitalized: 5 Length (cm): 1.6 Width (cm): 1.6 Depth (cm): 3.5 CM Sq: 2.560 Undermining Position: 10-3:00 Undermining Depth: 3.5 Surrounding Tissue Appearance: Macerated Surrounding Tissue Temp: Warm Drainage Amount: Moderate Drainage Description: Serosanguineous Drainage Odor: No Odor Lidocaine Applied Topically: 2% Jelly Right Buttock: Bed Appearance: Devitalized, Strayhorn and Yellow Percent of Wound Bed Granulated/Red: 95 Percent of Devitalized: 5 Length (cm): 1.5 Width (cm): 0.5 Depth (cm): 0.1 CM Sq: 0.750 Surrounding Tissue Appearance: Strayhorn and Callous Surrounding Tissue Temp: Warm Drainage Amount: Small Drainage Description: Serosanguineous Drainage Odor: No Odor Lidocaine Applied Topically: 2% Jelly Right Lower Lateral Leg: Bed Appearance: Beefy Red, Devitalized, Strayhorn and Yellow Percent of Wound Bed Granulated/Red: 10 Percent of Devitalized: 90 Length (cm): 0 Width (cm): 0 Depth (cm): 0 CM Sq: 0.000 Surrounding Tissue Appearance: Hyperpigmented Surrounding Tissue Temp: Warm Drainage Amount: None Drainage Description: Serosanguineous Drainage Odor: No Odor Lidocaine Applied Topically: 2% Jelly Right Lower Medial Leg: Bed Appearance: Devitalized, Epithelial Tissue or Bridge, Strayhorn and Yellow Percent of Wound Bed Granulated/Red: [...] Diabetes mellitus type: type 2 Diabetes mellitus mcc insulin use:with lobsterman use Diabetes mellitus complication status: with skin complications Diabetes mellitus complication detail: with other skin ulcer Qualified Code(s): E11.622 - Type 2 diabetes mellitus with other skin ulcer; Z79.4 - termination clerk (current) use of insulin Code(s): E11.9 - [...] signed by MD Cathy Brar> 12/23/21 [facility] Work Phone: [phone]) [phone] Progress note Author Cathy Brar [facility] November 18, 2021 11:55am Note Date/Time November 18, 2021 11 :55am [facility] [address] [place] [address] Wound Center Provider Note Signed Patient: Ganga Stinson MR#: [id number] : 1960 Acct:[id number] Age/Sex: 61 / M Copies to: MD [...] Bed Appearance: Beefy Red, Bone Palpable, Devitalized, Strayhorn and Yellow Percent of Wound Bed Granulated/Red: 75 Percent of Devitalized: 25 Length (cm): 3.5 Width (cm): 2.0 Depth (cm): 2.5 CM Sq: 7.000 Undermining Position: 360 (deepest at 3) Undermining Depth: 3.5 Surrounding Tissue Appearance: Hyperpigmented Surrounding Tissue Temp: Warm Drainage Amount: Large Drainage Description: Serosanguineous Drainage Odor: No Odor Lidocaine Applied Topically: 2% Jelly Right Heel: Bed Appearance: Devitalized, Strayhorn and Yellow Percent of Wound Bed Granulated/Red: 1 Percent of Devitalized: 99 Length (cm): 1.6 Width (cm): 2.3 Depth (cm): 0.1 CM Sq: 3.680 Surrounding Tissue Appearance: Hyperpigmented Surrounding Tissue Temp: Warm Drainage Amount: Large Drainage Description: Serosanguineous Drainage Odor: No Odor Lidocaine Applied Topically: 2% Jelly Right Ischium: Bed Appearance: Beefy Red, Bone Palpable, Devitalized, Epithelial Tissue or Bridge, Strayhorn and Yellow Percent of Wound Bed Granulated/Red: [...] Bed Appearance: Beefy Red, Bone Palpable, Devitalized, Strayhorn and Yellow Percent of Wound Bed Granulated/Red: 90 Percent of Devitalized: 10 Length (cm): 2.0 Width (cm): 2.0 Depth (cm): 3.5 CM Sq: 4.000 Undermining Position: 9-11:00 Undermining Depth: 4.0 Surrounding Tissue Appearance: Hyperpigmented Surrounding Tissue Temp: Warm Drainage Amount: Moderate Drainage Description: Serosanguineous Drainage Odor: No Odor Lidocaine Applied Topically: 2% Jelly Right Buttock: Bed Appearance: Beefy Red, Devitalized, Strayhorn and Yellow Percent of Wound Bed Granulated/Red: 95 Percent of Devitalized: 5 Length (cm): 2.4 Width (cm): 1.0 Depth (cm): 0.1 CM Sq: 2.400 Surrounding Tissue Appearance: Hyperpigmented Surrounding Tissue Temp: Warm Drainage Amount: Moderate Drainage Description: Serosanguineous Drainage Odor: No Odor Lidocaine Applied Topically: 2% Jelly Right Lower Lateral Leg: Bed Appearance: Beefy Red, Devitalized, Strayhorn and Yellow Percent of Wound Bed Granulated/Red: 10 Percent of Devitalized: 90 Length (cm): 1.3 Width (cm): 1.4 Depth (cm): 0.1 CM Sq: 1.820 Surrounding Tissue Appearance: Hyperpigmented Surrounding Tissue Temp: Warm Drainage Amount: Moderate Drainage Description: Serosanguineous Drainage Odor: No Odor Lidocaine Applied Topically: 2% Jelly Right Lower Medial Leg: Bed Appearance: Black Dry, Devitalized, Epithelial Tissue or Bridge, Strayhorn and Yellow Percent of Wound Bed Granulated/Red: [...] Diabetes mellitus type: type 2 Diabetes mellitus lobsterman insulin use:with lobsterman use Diabetes mellitus complication status: with skin complications Diabetes mellitus complication detail: with other skin ulcer Qualified Code(s): E11.622 - Type 2 diabetes mellitus with other skin ulcer; Z79.4 - termination clerk (current) use of insulin Code(s): E11.9 - [...] <Electronically signed by MD Cathy Brar> 11/18/21 [facility] Work Phone: [phone]) [phone] Progress note Author Cathy Brar [facility] October 21, 2021 11:44am Note Date/Time October 21, 2021 11:4 4am [facility] [address] [place] [address] Wound Center Provider Note Signed Patient: Ganga Stinson MR#: [id number] : 1960 Acct:[id number] Age/Sex: 61 / M Copies to: MD [...] mg tablet 10 mg PO QAM HTN 09/12/17 [History Confirmed 10/21/21] atenolol 100 mg tablet [...] Bed Appearance: Beefy Red, Bone Palpable, Devitalized, Strayhorn and Yellow Percent of Wound Bed Granulated/Red: 75 Percent of Devitalized: 25 Length (cm): 4.2 Width (cm): 3.0 Depth (cm): 3.0 CM Sq: 12.600 Undermining Position: 360 (deepest at 3) Undermining Depth: 3.5 Surrounding Tissue Appearance: Hyperpigmented Surrounding Tissue Temp: Warm Drainage Amount: Large Drainage Description: Serosanguineous Drainage Odor: No Odor Lidocaine Applied Topically: 2% Jelly Right Heel: Bed Appearance: Devitalized, Strayhorn and Yellow Percent of Wound Bed Granulated/Red: 50 Percent of Devitalized: 50 Length (cm): 2.3 Width (cm): 3.2 Depth (cm): 0.1 CM Sq: 7.360 Surrounding Tissue Appearance: Hyperpigmented Surrounding Tissue Temp: Warm Drainage Amount: Large Drainage Description: Serosanguineous Drainage Odor: No Odor Lidocaine Applied Topically: 2% Jelly Right Ischium: Bed Appearance: Beefy Red, Bone Palpable, Devitalized, Epithelial Tissue or Bridge, Strayhorn and Yellow Percent of Wound Bed Granulated/Red: [...] Bed Appearance: Beefy Red, Bone Palpable, Devitalized, Strayhorn and Yellow Percent of Wound Bed Granulated/Red: 90 Percent of Devitalized: 10 Length (cm): 3.0 Width (cm): 1.6 Depth (cm): 4.5 CM Sq: 4.800 Undermining Position: 9-11:00 Undermining Depth: 1.0 Surrounding Tissue Appearance: Hyperpigmented Surrounding Tissue Temp: Warm Drainage Amount: Moderate Drainage Description: Serosanguineous Drainage Odor: No Odor Lidocaine Applied Topically: 2% Jelly Right Buttock: Bed Appearance: Beefy Red, Devitalized, Strayhorn and Yellow Percent of Wound Bed Granulated/Red: 80 Percent of Devitalized: 20 Length (cm): 2.2 Width (cm): 1.1 Depth (cm): 0.1 CM Sq: 2.420 Surrounding Tissue Appearance: Hyperpigmented Surrounding Tissue Temp: Warm Drainage Amount: Moderate Drainage Description: Serosanguineous Drainage Odor: No Odor Lidocaine Applied Topically: 2% Jelly Right Lower Lateral Leg: Bed Appearance: Beefy Red, Devitalized, Strayhorn and Yellow Percent of Wound Bed Granulated/Red: 10 Percent of Devitalized: 90 Length (cm): 1.3 Width (cm): 1.4 Depth (cm): 0.1 CM Sq: 1.820 Surrounding Tissue Appearance: Hyperpigmented Surrounding Tissue Temp: Warm Drainage Amount: Moderate Drainage Description: Serosanguineous Drainage Odor: No Odor Lidocaine Applied Topically: 2% Jelly Right Lower Medial Leg: Bed Appearance: Black Dry, Devitalized, Strayhorn and Yellow Percent of Wound Bed Granulated/Red: 80 Percent of Devitalized: 20 Length (cm): 1.6 Width (cm): 2.5 Depth (cm): 0.1 CM Sq: 4.000 Surrounding Tissue Appearance: Hyperpigmented Surrounding Tissue Temp: Warm Drainage Amount: Moderate Drainage Description: Serosanguineous Drainage Odor: No Odor Lidocaine Applied Topically: 2% Jelly Right Foot: Bed Appearance: Beefy Red, Devitalized, Epithelial Tissue or Bridge, Strayhorn and Yellow Percent of Wound Bed Granulated/Red: [...] Diabetes mellitus type: type 2 Diabetes mellitus lobsterman insulin use:with mcc use Diabetes mellitus complication status: with skin complications Diabetes mellitus complication detail: with other skin ulcer Qualified Code(s): E11.622 - Type 2 diabetes mellitus with other skin ulcer; Z79.4 - snf (current) use of insulin Code(s): E11.9 - [...] signed by MD Cathy Brar> 10/21/21 114[address] [facility] Work Phone: [phone]) 737-595906-21-2022 Progress note Author Cathy Brar [facility] September 16, 2021 11:55am Note Date/Time September 16, 2021 11:5 1am [facility] [address] [place] [address] Wound Center Provider Note Signed Patient: Ganga Stinson MR#: [id number] : 1960 Acct:[id number] Age/Sex: 61 / M Copies to: MD [...] Wound/Ulcer Sacrum: Bed Appearance: Bone Palpable, Devitalized, Strayhorn and Yellow Percent of Wound Bed Granulated/Red: [...] Heel: Bed Appearance: Black Moist, Brown, Devitalized, Strayhorn and Yellow Percent of Wound Bed Granulated/Red: 95 Percent of Devitalized: 5 Length (cm): 3.4 Width (cm): 5.1 Depth (cm): 0.1 CM Sq: 17.340 Surrounding Tissue Appearance: Hyperpigmented Surrounding Tissue Temp: Warm Drainage Amount: Large Drainage Description: Serosanguineous Drainage Odor: No Odor Lidocaine Applied Topically: 2% Jelly Right Ischium: Bed Appearance: Beefy Red, Devitalized, Epithelial Tissue or Bridge, Strayhorn and Yellow Percent of Wound Bed Granulated/Red: 90 Percent of Devitalized: 10 Length (cm): 5.1 Width (cm): 5.5 Depth (cm): 4 CM Sq: 28.050 Undermining Position: 1-3:00 Undermining Depth: 1.5 Surrounding Tissue Appearance: Hyperpigmented Surrounding Tissue Temp: Warm Drainage Amount: Large Drainage Description: Serosanguineous Drainage Odor: No Odor Lidocaine Applied Topically: 2% Jelly Left Ischium: Bed Appearance: Beefy Red, Bone Palpable, Devitalized, Strayhorn and Yellow Percent of Wound Bed Granulated/Red: 90 Percent of Devitalized: 10 Length (cm): 3.9 Width (cm): 1.8 Depth (cm): 5 CM Sq: 7.020 Undermining Position: 9-11:00 Undermining Depth: 2.2 Surrounding Tissue Appearance: Hyperpigmented Surrounding Tissue Temp: Warm Drainage Amount: Moderate Drainage Description: Serosanguineous Drainage Odor: No Odor Lidocaine Applied Topically: 2% Jelly Right Buttock: Bed Appearance: Beefy Red, Devitalized, Strayhorn and Yellow Percent of Wound Bed Granulated/Red: 99 Percent of Devitalized: 1 Length (cm): 2.3 Width (cm): 0.9 Depth (cm): 0.2 CM Sq: 2.070 Surrounding Tissue Appearance: Hyperpigmented Surrounding Tissue Temp: Warm Drainage Amount: Moderate Drainage Description: Serosanguineous Drainage Odor: No Odor Lidocaine Applied Topically: 2% Jelly Right Lower Lateral Leg: Bed Appearance: Beefy Red, Devitalized, Strayhorn and Yellow Percent of Wound Bed Granulated/Red: 20 Percent of Devitalized: 80 Length (cm): 3.8 Width (cm): 2.3 Depth (cm): 0.1 CM Sq: 8.740 Surrounding Tissue Appearance: Hyperpigmented Surrounding Tissue Temp: Warm Drainage Amount: Moderate Drainage Description: Serosanguineous Drainage Odor: No Odor Lidocaine Applied Topically: 2% Jelly Right Lower Medial Leg: Bed Appearance: Black Dry, Devitalized, Strayhorn and Yellow Percent of Wound Bed Granulated/Red: 75 Percent of Devitalized: 25 Length (cm): 2.5 Width (cm): 2.7 Depth (cm): 0.2 CM Sq: 6.750 Surrounding Tissue Appearance: Hyperpigmented Surrounding Tissue Temp: Warm Drainage Amount: Moderate Drainage Description: Serosanguineous Drainage Odor: No Odor Lidocaine Applied Topically: 2% Jelly Right Foot: Bed Appearance: Beefy Red, Devitalized, Epithelial Tissue or Bridge, Strayhorn and Yellow Percent of Wound Bed Granulated/Red: [...] Diabetes mellitus type: type 2 Diabetes mellitus lobsterman insulin use:with mcc use Diabetes mellitus complication status: with skin complications Diabetes mellitus complication detail: with other skin ulcer Qualified Code(s): E11.622 - Type 2 diabetes mellitus with other skin ulcer; Z79.4 - snf (current) use of insulin Code(s): E11.9 - [...] <Electronically signed by MD Cathy Brar> 09/16/21 [facility] Work Phone: 1(335) [phone] Progress note Author Cathy Brar [facility] July 29, 2021 12:33pm Note Date/Time July 29, 2021 12:33p m [facility] [address] [place] [address] Wound Center Provider Note Signed Patient: Ganga Stinson MR#: [id number] : 1960 Acct:[id number] Age/Sex: 61 / M Copies to: MD [...] down Wound/Ulcer Sacrum: Bed Appearance: Bone Palpable, Strayhorn and Yellow Percent of Wound Bed Granulated/Red: 50 Percent of Devitalized: 50 Length (cm): 2.6 Width (cm): 2.0 Depth (cm): 3.0 CM Sq: 5.200 Undermining Position: 9-4 (deepest at 4) Undermining Depth: 5.4 Surrounding Tissue Appearance: Hyperpigmented Surrounding Tissue Temp: Warm Drainage Amount: Large Drainage Description: Serosanguineous Drainage Odor: No Odor Lidocaine Applied Topically: 2% Jelly Right Heel: Bed Appearance: Black Moist, Brown, Strayhorn and Yellow Percent of Wound Bed Granulated/Red: 15 Percent of Devitalized: 85 Length (cm): 6.0 Width (cm): 9.0 Depth (cm): 0.5 CM Sq: 54.000 Surrounding Tissue Appearance: Hyperpigmented Surrounding Tissue Temp: Warm Drainage Amount: Large Drainage Description: Serosanguineous Drainage Odor: No Odor Lidocaine Applied Topically: 2% Jelly Right Ischium: Bed Appearance: Beefy Red, Epithelial Tissue or Bridge, Strayhorn and Yellow Percent of Wound Bed Granulated/Red: 50 Percent of Devitalized: 50 Length (cm): 9.3 Width (cm): 7.9 Depth (cm): 5.2 CM Sq: 73.470 Undermining Position: 360 (deepest at 7) Undermining Depth: 2.3 Surrounding Tissue Appearance: Hyperpigmented Surrounding Tissue Temp: Warm Drainage Amount: Large Drainage Description: Serosanguineous Drainage Odor: No Odor Lidocaine Applied Topically: 2% Jelly Left Ischium: Bed Appearance: Strayhorn and Yellow Percent of Wound Bed Granulated/Red: 50 Percent of Devitalized: 50 Length (cm): 1.7 Width (cm): 1.5 Depth (cm): 3.5 CM Sq: 2.550 Undermining Position: 3-8 Undermining Depth: 4.5 Surrounding Tissue Appearance: Hyperpigmented Surrounding Tissue Temp: Warm Drainage Amount: Moderate Drainage Description: Serosanguineous Drainage Odor: No Odor Lidocaine Applied Topically: 2% Jelly Right Buttock: Bed Appearance: Beefy Red, Strayhorn and Yellow Percent of Wound Bed Granulated/Red: 75 Percent of Devitalized: 25 Length (cm): 6.6 Width (cm): 2.0 Depth (cm): 0.1 CM Sq: 13.200 Surrounding Tissue Appearance: Hyperpigmented Surrounding Tissue Temp: Warm Drainage Amount: Moderate Drainage Description: Serosanguineous Drainage Odor: No Odor Lidocaine Applied Topically: 2% Jelly Right Lower Lateral Leg: Bed Appearance: Beefy Red, Strayhorn and Yellow Percent of Wound Bed Granulated/Red: 50 Percent of Devitalized: 50 Length (cm): 1.8 Width (cm): 1.5 Depth (cm): 0.1 CM Sq: 2.700 Surrounding Tissue Appearance: Hyperpigmented Surrounding Tissue Temp: Warm Drainage Amount: Moderate Drainage Description: Serosanguineous Drainage Odor: No Odor Lidocaine Applied Topically: 2% Jelly Right Lower Medial Leg: Bed Appearance: Black Dry, Strayhorn and Yellow Percent of Wound Bed Granulated/Red: [...] Diabetes mellitus type: type 2 Diabetes mellitus mcc insulin use:with lobsterman use Diabetes mellitus complication status: with skin complications Diabetes mellitus complication detail: with other skin ulcer Qualified Code(s): E11.622 - Type 2 diabetes mellitus with other skin ulcer; Z79.4 - snf (current) use of insulin Code(s): E11.9 - [...] will attempt to obtain that note from hired help in [place]. See Instructions for Orders See Instructions for Orders See Wound Discharge Instructions for Orders: Patient may require serial debridement to remove devitalized tissue and encourage granulation. Dictated By: Cathy Brar MD DD/ [id number] Signed By: <Electronically signed by MD Cathy Brar> 07/29/21 1233 [facility] [employer] Work Phone: Evaluation + Plan note No data available for this section [facility] evaluation note* Diagnosis Onset Date Resolution Status Right hip pain acute Stage IV pressure ulcer of sacral region acute Unstageable pressure ulcer of right heel acute Cauda equina spinal cord injury chronic Diabetes chronic Pressure ulcer of left hip, stage 3 resolved Pressure ulcer of right hip, stage 3 resolved [facility] Work Phone: Evaluation note* Diagnosis Neurogenic bladder Neurogenic bladder, NOS documented in this encounter [employer] Work Phone: evaluation note* Diagnosis Neurogenic bladder Neurogenic bladder, NOS documented in this encounter [employer] Phone: evaluation note* Diagnosis Hyperkalemia- Primary Hyperpotassemia [...] of neurogenic bladder documented in this encounter [employer] Work Phone: evaluation note* Diagnosis Acute kidney injury (HCC) Acute kidney failure, unspecified Iron deficiency anemia, unspecified iron deficiency anemia type documented in this encounter [employer] Phone: evalgmjhhz note* Diagnosis Onset Date Resolution Status Pressure injury of left ischium, stage 4 acute Pressure injury of right ischium, stage 4 acute Pressure ulcer of right foot, stage 2 acute Right hip pain acute 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 Diabetes chronic [facility] Work Phone: Evaluation note* Diagnosis Cauda equina syndrome (HCC) Cauda equina syndrome without mention of neurogenic bladder Neurogenic bladder Neurogenic bladder, NOS Urinary retention Retention of urine, unspecified Urinary incontinence without sensory awareness Incontinence without sensory awareness documented in this encounter [facility] [employer] SystemEvaluation note* Diagnosis Cellulitis of left foot- Primary Ulcer of left ankle, with necrosis of bone (HCC) ([facility]) Diabetes mellitus due to underlying condition with diabetic polyneuropathy, unspecified whether lobsterman insulin use ([facility]) Acute complete paraplegia ([facility]) Acute osteomyelitis of left fibula ([facility]) Foot ulcer, right, with fat layer exposed ([facility]) Venous insufficiency Unspecified venous (peripheral) insufficiency documented in this encounter [facility] HealthcareEvaluation note* Diagnosis Abscess of toe, right- Primary documented in this encounter [facility] HealthcareEvaluation note* Diagnosis Onset Date Resolution Status [id number] acute Foot ulcer with fat layer exposed acute Stage IV pressure ulcer of right buttock acute 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 buttock, stage 3 chronic [facility] Work Phone: Evaluation note* Diagnosis Type 2 diabetes mellitus with hyperglycemia, without long-term current use of insulin (CMS/HCC)- Primary Dyslipidemia (CMS/HCC) Other and unspecified hyperlipidemia Benign hypertension (CMS/HCC) Essential hypertension, benign Major depressive disorder, recurrent episode, mild (HCC) (CMS/HCC) Major depressive disorder, recurrent episode, mild Incontinence overflow, urine Overflow incontinence Chronic superficial 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 Type 2 diabetes mellitus with hyperglycemia, without long-term current use of insulin (CMS/HCC)- Primary Benign hypertension (CMS/HCC) Essential hypertension, benign Major depressive disorder, recurrent episode, mild (HCC) (CMS/HCC) Major depressive disorder, recurrent episode, mild Incontinence overflow, urine Overflow incontinence Pruritus Unspecified pruritic disorder Chronic kidney disease, stage 3a (HCC) ([facility]) Encounter for long-term (current) use of medications Encounter for long-term (current) use of other medications Cauda equina syndrome (CMS/HCC) Cauda equina syndrome without mention of neurogenic bladder Urticaria- Primary Unspecified urticaria [facility] Additional Instructions DISCHARGE INSTRUCTIONS FOR [...] operative site FOLLOW UP Phone numbers: Office [phone] [facility] Work Phone: Hospital Discharge instructions No data available for this section [facility] InstructionsNot on filedocumented in this encounter [facility] SystemProgress note No data available for this section [facility] [place] Summary Purpose Family History Relationship Condition Age at Onset Recorded Date/T alverto father Autoimmune disorder Unknown Not Specified Myocardial infarction Unknown Hypertension Unknown Relationship Condition Age at Onset Recorded Date/T alverto father Autoimmune disorder Unknown Not Specified Myocardial infarction Unknown Hypertension Unknown father Unknown Not Specified Hypertension Unknown Unknown Heart disease Unknown Relationship Condition Age at Onset Recorded Date/T alverto father Autoimmune disorder Unknown mother Myocardial infarction Unknown Hypertension Unknown father Unknown mother Hypertension Unknown Unknown Heart disease Unknown Advance Directives Advance Directive Response Recorded [...] Name Relationship Healthcare Agent Relationshi p Communication Pradip Alloway Spouse Primary Decision Maker Latest Code [...] Name Relationship Healthcare Agent Relationshi p Communication Pradip Alloway Spouse Primary Decision Maker Advance Directive [...] Agents on File Name Relationship Healthcare Agent Clay[place] p Communication Pradip Alloway Spouse Primary Decision Maker Chief Complaint [...] Fibula Osteomyelitis, Diabetes, Ulcerative Reason for Visit [id number] Foot ulcer with fat layer exposed 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 Cauda equina spinal cord injury Pressure ulcer of left buttock, stage 3 Chief Complaint Open Wound Left Fibula Osteomyelitis, Diabetes, Ulcerative Unknown Reason for Visit [id number] Foot ulcer with fat layer exposed 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 Cauda equina spinal cord injury Pressure ulcer of left buttock, stage 3 Chief Complaint Admit Date D64.9 D50.9 February 08, 2024 10:24am Open Wounds - CART February 08, 2024 10:48am Reason for Visit Admit Date Diabetes mellitus due to und erlying condition with diabetic neuropathy, wit February 08, 2024 10:48am Pressure injury of left ischium, stage 4 February 08, 2024 10:48am Pressure injury of right ischium, stage 4 February 08, 2024 10:48am Stage IV pressure ulcer of sacral region February 08, 2024 10:48am Cauda equina spinal cord injury February 08, 2024 10:48am Reason for Referral Specialty Diagnoses / Procedures Referred By Contac t Referred To Contact Cardiology Diagnoses Neurogenic bladder Procedures EKG 12 Lead Angeles Nagy MD [address], [address] [place] [address] Referral ID Status Reason Start Date Expiration Date V isits Requested Visits Authorized [id number] Pending Review 06/22/2022 06/22/2023 1 1 Specialty Diagnoses / Procedures Referred By Contac t Referred To Contact Radiology Diagnoses Cauda equina syndrome (HCC) Neurogenic bladder Urinary retention Urinary incontinence without sensory awareness Procedures US RENAL COMPLETE Ashlee Erwin, TRAINING DEVELOPMENT SPECIALIST - METAL DRILL OPERATOR [address] [facility] [address] [place] [address] Referral ID Status Reason Start Date Expiration Date Visits Re quested Visits Authorized [id number] Open 09/18/2022 09/18/2023 1 1 Additional Source Comments (unrecognized sect ion and content) No Status Records FoundNo Status Records FoundNo Status Records FoundNo Status Records FoundNo Status Records FoundNo Status Records FoundNo Status Records Found INFORMATION SOURCE (unrecogn ized section and content) DATE CREATED AUTHOR 09/21/2017 [facility] DATE CREATED AUTHOR AUTHOR'S ORGANIZ ATION 04/08/2022 [facility] DATE CREATED AUTHOR AUTHOR'S ORGANIZ ATION 09/27/2022 [facility] DATE CREATED AUTHOR AUTHOR'S ORGANIZ ATION 10/22/2023 [facility] DATE CREATED AUTHOR AUTHOR'S ORGANIZ ATION 11/19/2023 [facility] DATE CREATED AUTHOR AUTHOR'S ORGANIZ ATION 01/22/2024 [facility] EPIC DATE CREATED AUTHOR AUTHOR'S ORGANIZ ATION 02/14/2024 [facility] Care Teams (unrecognized sec tion and content) Team Status: Active Member Role Status Dates Fidel Abbott MD Primary Care Provider Active Team Status: Inactive Member Role Status Dates Fidel Abbott MD Primary Care Provider Active Cathy Brar MD Attending Provider Active Instrument Lens Generator Relationship Specialty Start Date End Date Fidel Abbott MD PCP - General 07/03/15 Instrument Lens Generator Relationship Specialty Start Date End Date Fidel Abbott MD PCP - General 07/03/15 Instrument Lens Generator Relationship Specialty Start Date End Date Fidel Abbott MD PCP - General 07/03/15 Instrument Lens Generator Relationship Specialty Start Date End Date Fidel Abbott MD PCP - General 07/03/15 Instrument Lens Generator Relationship Specialty Start Date End Date Fidel Abbott MD PCP - General 07/03/15 Instrument Lens Generator Relationship Specialty Start Date End Date Fidel Abbott MD PCP - General Family Medicine 12/10/22 Fidel Abbott MD [address] [place] [address] [facility] 03/29/23 Instrument Lens Generator Relationship Specialty Start Date End Date Fidel Abbott MD PCP - General Family Medicine 12/10/22 Fidel Abbott MD [address] [place] [phone] PCP - [place] [facility] 03/29/23 Instrument Lens Generator Relationship Specialty Start Date End Date Fidel Abbott MD [address] [place] [phone] PCP - [place] [facility] 03/29/23 Fidel Abbott MD [address] [place] [phone] PCP - General Family Medicine 05/12/23 Team [...] July 08, 2023 End: July 08, 2023 Instrument Lens Generator Relationship Specialty Start Date End Date Fidel Abbott MD PCP - General 12/28/16 Instrument Lens Generator Relationship Specialty Start Date End Date Fidel Abbott MD PCP - General 12/28/16 Instrument Lens Generator Relationship Specialty Start Date End Date Fidel Abbott MD [address] [place] [phone] PCP - [place] [facility] 02/26/23 Fidel Abbott MD [address] [place] [address] PCP - General Family Medicine 11/18/23 Instrument Lens Generator Relationship Specialty Start Date End Date Fidel Abbott MD [address] [place] [address] PCP - [place] [facility] 02/26/23 Fidel Abbott MD [address] [place] [address] PCP - General [facility] Medicine 11/18/23 Team Status: Inactive Member Role Status Dates Fidel Abbott MD Primary Care Provider Active S tart: February 08, 2024 End: February 08, 2024 Nina River MD Attending Provider Active St art: February 08, 2024 End: February 08, 2024 Team Status: Active Member Role Status Dates Cathy Brar MD Attending Provider Active Sta rt: February 08, 2024 Fidel Abbott MD Primary Care Provider Active S tart: February 08, 2024 Goals (unrecognized section and content) Goals may be documented in a n alternate sectionGoals may be documented in an alternate section No data available for this section No data available for this sectionNot on filedocumented as of this encounterNot on filedocumented as of this encounterGoals may be documented in an alternate section Reason for Visit (unrecogniz ed section and content) Reason Comments Abnormal Lab Pt sent from urology for abnormal pre-op bloodwork. Urology reports pt potassium is 6.1 and creatinine is 2.0. Sent pt here for evaluation Specialty Diagnoses / Procedures Referred By Farzaneh t Referred To Contact Diagnoses Hyperkalemia Acute kidney injury (HCC) Matias Doss MD [address] [place] [address] [facility] [address] [place] [address] Referral ID Status Reason Start Date Expiration Date Visits Re quested Visits Authorized [id number] 1 1 Specialty Diagnoses / Procedures Referred By Farzaneh sy Referred To Contact Radiology Diagnoses Cauda equina syndrome (HCC) Neurogenic bladder Urinary retention Urinary incontinence without sensory awareness Procedures US RENAL COMPLETE Ashlee Erwin, TRAINING DEVELOPMENT SPECIALIST - METAL DRILL OPERATOR [address] [facility] [address] [place] [address] Referral ID Status Reason Start Date Expiration Date Visits Re quested Visits Authorized [id number] Open 09/18/2022 09/18/2023 1 1 Reason Comments Foot Ulcer Reason Onset Date Comments Prescription 05/13/2023 Reason Comments Follow-up Hives Waist up hives and i tchy Ordered Prescriptions (unrec ognized section and content) [...] Valdez RN) 0812 (MAR Hold - Provider: Warren Autohold - Reason: Unreviewed Transfer Orders)0900 (Automatically Held - Provider: Warren Autohold)0959 ([facility] Unhold - Provider: Dragan Voss, RENETTA)1234 (Given - Provider: Linh Chan) atenolol (TENORMIN) tablet 100 mg 100 mg, Oral, DAILY, First dose on Wed06/23/22 at 0900, Until Discontinued 0907 (Given - Provider: Heri Valdez RN) 0723 (Given - Provider: Heri Valdez RN) 0812 (MAR Hold - Provider: Warren Autohold - Reason: Unreviewed Transfer Orders)0900 (Automatically Held - Provider: Warren Autohold)0959 ([facility] Unhold - Provider: Dragan Voss RN)1233 (Given - Provider: Linh Chan) citalopram (CELEXA) tablet 40 mg 40 mg, Oral, DAILY, First dose on Wed06/23/22 at 0900, Until Discontinued 0907 (Given - Provider: Heri Valdez RN) 0723 (Given - Provider: Heri Valdez RN) 0812 (MAR Hold - Provider: Warren Autohold - Reason: Unreviewed Transfer Orders)0900 (Automatically Held - Provider: Warren Autohold)0959 ([facility] Unhold - Provider: Dragan Voss [...] Panchito Crockett RN)0812 (MAR Hold - Provider: Warren Autohold - Reason: Unreviewed Transfer Orders)0830 (Automatically Held - Provider: Warren Autohold)0959 (MAR Unhold - Provider: Dragan Voss RN)1245 (New Bag - Provider: June Rocio)1320 (Stopped - Provider: June Rocio)2045 (Due - Provider: Linda Ibrahim [facility]) fenofibrate (TRIGLIDE) tablet 160 mg 160 mg, Oral, DAILY, First dose on Wed06/23/22 at 0900, Until Discontinued, Substituted for Fenofibrate (Non-Formulary Dose). 0907 (Given - Provider: Heri Valdez RN) 0724 (Given - Provider: Heri Valdez RN) 0812 (MAR Hold - Provider: Warren Autohold - Reason: Unreviewed Transfer Orders)0900 (Automatically Held - Provider: Warren Autohold)0959 (MAR Unhold - Provider: Dragan Voss [...] APRN - DOLLY)1600 (Automatically Held - Provider: ESTELLE Katz CNP) 0000 (Automatically Held - Provider: ESTELLE Katz CNP)0800 (Automatically Held - Provider: ESTELLE Katz CNP)1600 (Automatically Held - Provider: Shelly Mondragon APRN - DOLLY) multivitamin 1 tablet 1 tablet, Oral, DAILY, First dose on Wed06/25/22 at 0900, Until Discontinued 0724 (Given - Provider: Heri Valdez RN) 0812 (MAR Hold - Provider: Warren Autohold - Reason: Unreviewed Transfer Orders)0900 (Automatically Held - Provider: Warren Autohold)0959 ([facility] Unhold - Provider: Dragan Voss [...] Fluid Infusing) 0812 (MAR Hold - Provider: Warren Autohold - Reason: Unreviewed Transfer Orders)0900 (Automatically Held - Provider: Warren Autohold)0959 (MAR Unhold - Provider: Dragan Voss [...] Valdez RN) 0812 (MAR Hold - Provider: Warren Autohold - Reason: Unreviewed Transfer Orders)0900 (Automatically Held - Provider: Warren Autohold)0959 (MAR Unhold - Provider: Dragan Voss RN) Continuous Medication Order 06/24/2022 06/25/2022 06/26/2022 0.9 % sodium chloride infusion IntraVENous, at 75 mL/hr, CONTINUOUS, Starting on Wed06/22/22 at 2045 0020 (New Bag - Provider: Geneva Samayoa RN) 0812 (MAR Hold - Provider: Warren Autohold - Reason: Unreviewed Transfer Orders)0959 (MAR [...] less into rate field of order. 0812 ([facility] - Pro vider: [facility] Autohold - Reason: Unreviewed Transfer Orders)0959 ([facility] Unhold - Provider: Dragan Voss RN) 0.9 % sodium chloride infusion IntraVENous, at 240 mL/hr, Administer over 10 Minutes, PRN, blood administration, Starting on Wed06/24/22 at 0733, For 1 dose, For use in priming line prior to transfusion (prime via gravity) and flush line post transfusion ONLY. Discontinue once line has been cleared of remaining blood product. 0812 ([facility] - Pro vider: [facility] [employer] - Reason: Unreviewed Transfer Orders)0959 ([facility] Unhold - Provider: Dragan Voss RN) acetaminophen (TYLENOL) suppository 650 mg(Linked Group 1) 650 mg, Rectal, EVERY 6 HOURS PRN, Starting on Wed06/22/22 at 2017, Until Discontinued, Pain Mild (1-3), Fever, For temp greater than 100.4 F (38 C), Administer if oral route cannot be used. 0812 ([facility] - Pro vider: [facility] [employer] - Reason: Unreviewed Transfer Orders)0959 ([facility] Unhold - Provider: Dragan Voss RN) acetaminophen (TYLENOL) tablet 650 mg(Linked Group 1) 650 mg, Oral, EVERY 6 HOURS PRN, Starting on Wed06/22/22 at 2017, Until Discontinued, Pain Mild (1-3), Fever, For temp greater than 100.4 F (38 C), Maximum dose of acetaminophen is 4000 mg from all sources in 24 hours. 0812 ([facility] - Pro vider: [facility] [employer] - Reason: Unreviewed Transfer Orders)0959 ([facility] Unhold - Provider: Dragan Voss RN) ondansetron (ZOFRAN) injection 4 mg(Linked Group 2) 4 mg, IntraVENous, EVERY 6 HOURS PRN, Starting on Wed06/22/22 at 2017, Until Discontinued, Nausea, Vomiting, Administer if oral route cannot be used. 0812 ([facility] Hold - Pro vider: [facility] [employer] - Reason: Unreviewed Transfer Orders)0959 ([facility] Unhold - Provider: Dragan Voss RN) ondansetron (ZOFRAN-ODT) disintegrating tablet 4 mg(Linked Group 2) 4 mg, Oral, EVERY 8 HOURS PRN, Starting on Wed06/22/22 at 2017, Until Discontinued, Nausea, Vomiting 0812 ([facility] Hold - Pro vider: [facility] [employer] - Reason: Unreviewed Transfer Orders)0959 ([facility] Unhold - Provider: Dragan Voss RN) polyethylene glycol (GLYCOLAX) packet 17 g 17 g, Oral, DAILY PRN, Starting on Wed06/22/22 at 2017, Until Discontinued, Constipation, First line therapy for constipation 0812 ([facility] Hold - Pro vider: [facility] Aut[employer] - Reason: Unreviewed Transfer Orders)0959 ([facility] Unhold - Provider: Dragan Voss RN) sodium chloride flush 0.9 % injection 10 mL 10 mL, IntraVENous, PRN, Starting on Wed06/22/22 at 2017, Until Discontinued, Line Care, After every IV line use 0812 ([facility] Hold - Pro vider: [facility] Autoh[employer] - Reason: Unreviewed Transfer Orders)0959 ([facility] Unhold - Provider: Dragan Voss [...] BE BASED ON THE PRIMARY CLINICAL RECORDS. [facility]. provides no warranty or guarantee of the accuracy or completeness of information in this document.
== END 2024-02-16 13:44 | disposition home or self-care (01) ==
LOC: WC 13:43
PROVIDERS: PCP Family Medicine; Visit Provider Physician Assistant
DX: E11.621 Type 2 diabetes mellitus with foot ulcer (principal); 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 with other specified severity; L97.412 Non-pressure chronic ulcer of right heel and midfoot with fat layer exposed; I87.311 Chronic venous hypertension (idiopathic) with ulcer of right lower extremity; L97.818 Non-pressure chronic ulcer of other part of right lower leg with other specified severity; L89.611 Pressure ulcer of right heel, stage 1; L97.812 Non-pressure chronic ulcer of other part of right lower leg with fat layer exposed; I87.331 Chronic venous hypertension (idiopathic) with ulcer and inflammation of right lower extremity
CPT/HCPCS: G0463

== ENCOUNTER 2024-03-06 10:30 | Outpatient (OUT) | payer BC, MEDICARE, SELFPAY ==
--- NOTE | 2024-03-06 10:31 | VEIN_ITS ---
The [address] [address] Patient Name: JOEL STINSON MRN: [id number] date: 1960 Sex: M Assigned Patient Location: Current Patient Location: Accession/Order Number: [id number] Exam Date: 03/06/2024 11:00 Report Date: 03/06/2024 14:13 At the request of: JESUS HERNANDES Procedure: VC SEGMENTAL PRESSURES EXAM: VC SEGMENTAL PRESSURES HISTORY: R09.89 peripheral vascular disease COMPARISON: None TECHNIQUE: Resting ABIs and segmental limb pressures were obtained. FINDINGS: ABIs are nondiagnostic due to vascular rigidity. Bilateral toe-brachial indices are normal. Based upon waveform analysis the likelihood of significant vascular disease is low. VEIN/VC SEGMENTAL PRESSURES IMPRESSION: Nondiagnostic ABIs due to vascular rigidity. However, normal toe-brachial indices and biphasic waveforms. The likelihood of significant vascular disease is low. Electronically authenticated by: Rafaela WRIGHT Date: 03/06/2024 14:13
== END 2024-03-06 10:31 | disposition home or self-care (01) ==
LOC: VC 10:30
PROVIDERS: PCP Family Medicine; Visit Provider Podiatrist Foot & Ankle Surgery
DX: R09.89 Other specified symptoms and signs involving the circulatory and respiratory systems (principal)
CPT/HCPCS: 93923

== ENCOUNTER 2024-03-10 09:58 | Outpatient (OUT) | payer BC, MEDICARE, SELFPAY ==
--- NOTE | 2024-03-10 10:06 | ECG_ITS ---
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
--- OUTSIDE RECORDS SUMMARY | 2024-03-10 10:22 | XMS_ITS | CCD ---
Author Organization [facility] Care Team Providers Care General Cargo Clerk Name Role Phone WESTONMICHAELA Unavailable Unavailable NADERER, [...] NADERER, DR FIDEL Tellez Primary Care Unavailable ZAP, DR KHADAR Edwards Consulting Unavailable BRAR, DR CATHY Edwards Consulting Unavailable MD Fidel Abbott Primary Care Provider [phone] MD Cathy Brar Attending Provider Fidel Abbott [...] Referring Unavailable NADERER, FIDEL Primary Care Physician Milena NAZARIO, Fidel Primary Care Provider [phone] Fidel Abbott MD Unavailable Milena NAZARIO, Fidel Primary Care Provider MD Fidel Abbott Primary Care Provider MD Cathy Brar Attending Provider [phone] CRISTIANA Moffett Attending Provider [phone] CRISTIANA Bahena Attending Provider [phone] Khadar Guerrero Referring Unavailable NADERER, FIDEL Primary Care Unavailable NADERER, FIDEL Referring Unavailable Jovanny VILLA Attending Unavailable Jovanny VILLA Attending Unavailable ALLEN, Jovanny R Attending Unavailable VILLA, Jovanny R Referring Unavailable VILLA, Jovanny R Attending Unavailable ALLEN, Jovanny Christie Attending Unavailable Milena NAZARIO, Fidel Primary Care Provider Milena NAZARIO, Fidel Unavailable Fidel Abbott MD Primary Care Provider JONATHAN MOFFETT Attending Unavailable NADERER, FIDEL Attending [...] Attending Provider Cathy Brar MD Attending Provider [phone] Brar, Cathy Admitting Unavailable Maykel Cathy Attending Unavailable Milena, Fidel Primary Care Unavailable Jonathan Moffett Admitting Unavailable Jonathan Moffett Attending Unavailable Fidel Abbott Primary Care Unavailable Bubba Bahena Admitting Unavailable Shruti, Bubba Lee Attending Unavailable Brar, Cathy Admitting Unavailable Maykel, Cathy Attending Unavailable Milena, Fidel Primary Care Unavailable Aleta, Nina Admitting Unavailable Kris Riverva Attending Unavailable Fidel Abbott Primary Care Unavailable Brar, Cathy Admitting Unavailable Cathy Brar Attending Unavailable Fidel Abbott Primary Care Unavailable Allergies Allergy Classification Reported Allergen(s) Allergy Type Date of Onset Reaction(s) Facility (7 sources) Vancomycin; 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: [VANCOMYCIN] Drug Allergy 6 Shut kidneys down [facility] Repository (15 sources) Vancomycin Drug Allergy 6 Other, Unknown, Other (See Comments) [facility] (11 sources) omadacycline; 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: [omadacycl] Drug allergy 3 Renal pain (finding) [facility] (4 sources) ferrous sulfate; 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: [ferrous sulfate] Drug Allergy 3 Itching [facility] (1 source) Vancomycin Drug Allergy 3 [facility] Repository Medications Current Medications Medication Drug Class(es) [...] hyperglycemia, without long-term current use of insulin ([facility]) Take 1 tablet (10 mg) [...] procedure, # 2 tab(s), Refills(s) 0, Pharmacy: [facility] [id number], 180, cm, 11/09/22 13:16:00 [...] Called to pharmacy 09/09/2021 polyethylene glycol 3350 02527 mg powder for oral solution (1 source) Osmotic Laxative Start: 06-22-2022 17 g, Oral, D AILY PRN, Starting on Wed06/22/22 at 2018, Until Discontinued, Constipation First line therapy for constipation polyethylene glycol 3350 991995 mg / potassium chloride 2970 mg / sodium bicarbonate 6740 mg / sodium chloride 5860 mg / sodium sulfate 60652 mg powder for oral solution (1 source) [...] GM/60ML suspension 45 g sodium zirconium cyclosilicate 49931 mg powder for oral suspension (1 source) [...] 9:21am Start: 12-07-2016 End: 12-08-2016 Bactrim Discontinued [facility] 2016 12:00am December 08, 2016 2:50pm Start: 12-07-2016 End: 12-08-2016 Bactrim Discontinued [facility] 2016 11:00pm December 08, 2016 [...] 05-06-2020 Chronic 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) Elevated white blood cell count, unspecified; 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: [...] current use of drug therapy; 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: [Other retirement (current) drug therapy] Onset: 4 11-18-2023 Episodic [...] Acute and unspecified renal failure (16 sources) Apesy-yh-ravyjda renal failure; 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: [Acute kidney failure, unspecified] [...] Interpretation and review of laboratory results Abnormal [facility] Healthcare TB SED RATE 67 High NINF [facility] Basic Metabolic Panelon 01-27 Anion gap [Moles/Vol] 9.9 mmol/L Normal 6.0-15.0 [facility] Comment on above: Performed By: #### B MP, FE PRO, B12, ESR, CRP, CBC #### [facility] [address] [id number] [place] Calcium [Mass/Vol] 7.6 mg/dL Low 8.6-10.3 [facility] Comment on above: Performed By: #### B MP, FE PRO, B12, ESR, CRP, CBC #### [facility] [address] [id number] [place] Chloride [Moles/Vol] 106 mmol/L Normal 98-107 [facility] Comment on above: Performed By: #### B MP, FE PRO, B12, ESR, CRP, CBC #### [facility] [address] [id number] [place] CO2 [Moles/Vol] 26.1 mmol/L Normal 21.0-31.0 [facility] Comment on above: Performed By: #### B MP, FE PRO, B12, ESR, CRP, CBC #### [facility] [address] Creatinine [Mass/Vol] 1.59 mg/dL High 0.70-1.30 [facility] Comment on above: Performed By: #### B MP, FE PRO, B12, ESR, CRP, CBC #### [facility] [address] [place] [address] [place] GFR/1.73 sq M.predicted MDRD (S/P/Bld) [Vol rate/Area] 48.779 mL/min/{1.73_m2} Normal [facility] Comment on above: Performed By: #### B MP, FE PRO, B12, ESR, CRP, CBC #### [address] Glucose [Mass/Vol] 128 mg/dL High 70-100 [facility] Comment on above: Result Comment: [place] Glucose Reference Range is dependent on time and content of last meal. Glucose of more than 200 mg/dL in a nonstressed, ambulatory subject supports the diagnosis of Diabetes Mellitus. ADA recommended reference range Performed By: #### B MP, FE PRO, B12, ESR, CRP, CBC #### [address] Potassium [Moles/Vol] 4.0 mmol/L Normal 3.5-5.1 [facility] Comment on above: Performed By: #### B MP, FE PRO, B12, ESR, CRP, CBC #### [address] Sodium [Moles/Vol] 138 mmol/L Normal 136-145 [facility] Comment on above: Performed By: #### B MP, FE PRO, B12, ESR, CRP, CBC #### [address] Urea nitrogen [Mass/Vol] 24 mg/dL Normal 7-25 [facility] Comment on above: Performed By: #### B MP, FE PRO, B12, ESR, CRP, CBC #### [place] [id number] [facility] Basophils Auto (Bld) [#/Vol] Ordered By: Nina Aleta on 02-08-2024 Basophils (Bld) [#/Vol] Automated basophil count 0.0-0.2 [facility] Basophils/100 WBC Auto (Bld) Ordered By: Nina Aleta on 02-08-2024 Basophils/100 WBC (Bld) Automated basophil % . [facility] C reactive protein [Mass/vol ume] in Serum or PlasmaOrdered By: Nina Aleta on 02-08-2024 CRP [Mass/Vol] C reactive protein [Mass/volume] in Serum or Plasma High 0.0-0.5 [facility] C-Reactive Proteinon C-Reactive Protein 10.7 mg/dL High 0.0-0.5 [facility] Comment on above: Performed By: #### B MP, FE PRO, B12, ESR, CRP, CBC #### [facility] [address] [id number] [facility] Calcium [Mass/volume] in Ser um or PlasmaOrdered By: Nina Aleta on 02-08-2024 Calcium [Mass/Vol] Calcium [Mass/volume ] in Serum or Plasma Low 8.6-10.3 [facility] Carbon dioxide, total [Moles /volume] in Serum or PlasmaOrdered By: Nina Aleta on 02-08-2024 CO2 [Moles/Vol] Carbon dioxide, tota l [Moles/volume] in Serum or Plasma 21.0-31.0 [facility] Chloride [Moles/volume] in S tremayne or PlasmaOrdered By: Nina Aleta on 02-08-2024 Chloride [Moles/Vol] Chloride [Moles/vol ume] in Serum or Plasma 98-107 [facility] Complete Blood Count Auto Di ffon 02-08-2024 Basophils (Bld) [#/Vol] 0.0 10*3/uL Normal 0.0-0.2 [facility] Comment on above: Performed By: #### B MP, FE PRO, B12, ESR, CRP, CBC #### [address] Basophils/100 WBC (Bld) 0.4 % Normal . [facility] Comment on above: Performed By: #### B MP, FE PRO, B12, ESR, CRP, CBC #### [address] Eosinophils (Bld) [#/Vol] 0.2 10*3/uL Normal 0.0-0.45 [facility] Comment on above: Performed By: #### B MP, FE PRO, B12, ESR, CRP, CBC #### [address] Eosinophils/100 WBC (Bld) 2.4 % Normal . [facility] Comment on above: Performed By: #### B MP, FE PRO, B12, ESR, CRP, CBC #### [address] Erythrocyte distribution width (RBC) [Ratio] 15.2 % High 12.0-14.8 [facility] Comment on above: Performed By: #### B MP, FE PRO, B12, ESR, CRP, CBC #### [address] Hematocrit (Bld) [Volume fraction] 23.1 % Low 38.8-50.0 [facility] Comment on above: Performed By: #### B MP, FE PRO, B12, ESR, CRP, CBC #### [address] Hemoglobin (Bld) [Mass/Vol] 7.8 g/dL Low 13.0-17.0 [facility] Comment on above: Performed By: #### B MP, FE PRO, B12, ESR, CRP, CBC #### [address] Lymphocytes (Bld) [#/Vol] 0.7 10*3/uL Low 1.00-4.8 [facility] Comment on above: Performed By: #### B MP, FE PRO, B12, ESR, CRP, CBC #### [address] Lymphocytes/100 WBC (Bld) 7.0 % Normal . [facility] Comment on above: Performed By: #### B MP, FE PRO, B12, ESR, CRP, CBC #### [address] MCH (RBC) [Entitic mass] 26.8 pg Low 27.5-35.2 [facility] Comment on above: Performed By: #### B MP, FE PRO, B12, ESR, CRP, CBC #### [address] MCV (RBC) [Entitic vol] 79.5 fL Low 83.5-101 [facility] Comment on above: Performed By: #### B MP, FE PRO, B12, ESR, CRP, CBC #### [address] Mean Corpuscular HGB Conc 33.7 g/dL Normal 32.5-35.6 [facility] Comment on above: Performed By: #### B MP, FE PRO, B12, ESR, CRP, CBC #### [address] Monocytes (Bld) [#/Vol] 0.5 10*3/uL Normal 0.0-0.8 [facility] Comment on above: Performed By: #### B MP, FE PRO, B12, ESR, CRP, CBC #### [address] Monocytes/100 WBC (Bld) 4.8 % Normal . [facility] Comment on above: Performed By: #### B MP, FE PRO, B12, ESR, CRP, CBC #### [address] Neutrophils (Bld) [#/Vol] 9.0 10*3/uL High 1.8-7.7 [facility] Comment on above: Performed By: #### B MP, FE PRO, B12, ESR, CRP, CBC #### [address] Neutrophils/100 WBC (Bld) 85.4 % Normal . [facility] Comment on above: Performed By: #### B MP, FE PRO, B12, ESR, CRP, CBC #### [address] NRBC% 0.0 /100{WBC} Normal 0-0.5 [facility] Comment on above: Performed By: #### B MP, FE PRO, B12, ESR, CRP, CBC #### [address] Platelet mean volume (Bld) [Entitic vol] 6.7 fL Normal 6.6-10.1 [facility] Comment on above: Performed By: #### B MP, FE PRO, B12, ESR, CRP, CBC #### [address] Platelets (Bld) [#/Vol] 220 10*3/uL Normal 150-450 [facility] Comment on above: Performed By: #### B MP, FE PRO, B12, ESR, CRP, CBC #### [address] RBC (Bld) [#/Vol] 2.91 10*6/uL Low 3.90-5.60 [facility] Comment on above: Performed By: #### B MP, FE PRO, B12, ESR, CRP, CBC #### [address] WBC (Bld) [#/Vol] 10.5 10*3/uL Normal 4.1-10.5 [facility] Comment on above: Performed By: #### B MP, FE PRO, B12, ESR, CRP, CBC #### [address] Creatinine [Mass/volume] in Serum or PlasmaOrdered By: Nina River on 02-08-2024 Creatinine [Mass/Vol] Creatinine [Mass/v olume] in Serum or Plasma High 0.70-1.30 [facility] Eosinophils Auto (Bld) [#/Vo l]Ordered By: Nina River on 02-08-2024 Eosinophils (Bld) [#/Vol] Automated eosinophil count 0.0-0.45 [facility] Eosinophils/100 WBC Auto (Bl d)Ordered By: Ninastefan River on 02-08-2024 Eosinophils/100 WBC (Bld) Automated eosinophil % . [facility] Erythrocyte Sedimentation Ra мария 02-08-2024 ESR (Bld) [Velocity] 44 mm/h High 0-19 [facility] Comment on above: Result Comment: PERF ORMED BY: [place] [address] PATHOLOGIST DINKEY OPERATOR SLAG FARRAH PAUL M.D. Performed By: #### B MP, FE PRO, B12, ESR, CRP, CBC #### [address] Erythrocyte distribution wid th Auto (RBC) [Ratio]Ordered By: Nina River on 02-08-2024 Erythrocyte distribution width (RBC) [Ratio] Erythrocyte distribution width [Ratio] by Automated count High 12.0-14.8 [facility] Erythrocyte sedimentation ra te by Photometric methodOrdered By: Nina River on 02-08-2024 ESR Photometric method (Bld) [Velocity] Erythrocyte sedimentation rate by Photometric method High 0-19 [facility] FE PROon 02-08-2024 % Iron Saturation Not performed Normal 20-50 [facility] Comment on above: Performed By: #### B MP, FE PRO, B12, ESR, CRP, CBC #### [facility] [address] [place] [address] Ferritin [Mass/Vol] 422.9 ng/mL High 23.9-336.2 [facility] Comment on above: Performed By: #### B MP, FE PRO, B12, ESR, CRP, CBC #### [facility] [address] [place] [address] Iron [Mass/Vol] ug/dL Low 50-212 [facility] Comment on above: Performed By: #### B MP, FE PRO, B12, ESR, CRP, CBC #### [facility] [address] [place] [address] [place] Total Iron Binding Capacity 175 ug/dL Low 255-450 [facility] Comment on above: Performed By: #### B MP, FE PRO, B12, ESR, CRP, CBC #### [facility] [address] [place] [id number] [place] Transferrin [Mass/Vol] 125 mg/dL Low 203-362 [facility] Comment on above: Performed By: #### B MP, FE PRO, B12, ESR, CRP, CBC #### [facility] [address] [place] [address] [place] Ferritin [Mass/volume] in Se rum or PlasmaOrdered By: Nina River on 02-08-2024 Ferritin [Mass/Vol] Ferritin [Mass/volum e] in Serum or Plasma High 23.9-336.2 [facility] Glucose [Mass/volume] in Ser um or PlasmaOrdered By: Nina River on 02-08-2024 Glucose [Mass/Vol] Glucose [Mass/volume ] in Serum or Plasma High 70-100 [facility] Comment on above: ADA recommended refe rence rangeRandom Glucose Reference Range is dependent on time and content of last meal. Glucose of more than 200 mg/dL in a nonstressed, ambulatory subject supports the diagnosis of Diabetes Mellitus. Hematocrit Auto (Bld) [Volum e fraction]Ordered By: Nina River on 02-08-2024 Hematocrit (Bld) [Volume fraction] Hematocrit [Volume Fraction] of Blood by Automated count Low 38.8-50.0 [facility] Hemoglobin [Mass/volume] in BloodOrdered By: Nina River on 02-08-2024 Hemoglobin (Bld) [Mass/Vol] Hemoglobin [Mass/volume] in Blood Low 13.0-17.0 [facility] Iron [Mass/volume] in Serum or PlasmaOrdered By: Nina River on 02-08-2024 Iron [Mass/Vol] Iron [Mass/volume] i n Serum or Plasma Low 50-212 [facility] Leukocytes [#/volume] correc shreya for nucleated erythrocytes in Blood by Automated counOrdered By: Nina Aleta on 02-08-2024 WBC corrected for nucl RBC Auto (Bld) [#/Vol] Leukocytes [#/volume] corrected for nucleated erythrocytes in Blood by Automated coun 4.1-10.5 [facility] Lymphocytes Auto (Bld) [#/Vo l]Ordered By: Nina Aleta on 02-08-2024 Lymphocytes (Bld) [#/Vol] Lymphocytes [#/volume] in Blood by Automated count Low 1.00-4.8 [facility] Lymphocytes/100 WBC Auto (Bl d)Ordered By: Nina Aleta on 02-08-2024 Lymphocytes/100 WBC (Bld) Lymphocytes/100 leukocytes in Blood by Automated count . [facility] MCH Auto (RBC) [Entitic mass ]Ordered By: Nina Aleta on 02-08-2024 MCH (RBC) [Entitic mass] MCH [Entitic mass] by Automated count Low 27.5-35.2 [facility] MCHC Auto (RBC) [Mass/Vol]Or dered By: Nina Aleta on 02-08-2024 MCHC (RBC) [Mass/Vol] MCHC [Mass/volume] by Automated count 32.5-35.6 [facility] MCV Auto (RBC) [Entitic vol] Ordered By: Nian Aleta on 02-08-2024 MCV (RBC) [Entitic vol] MCV [Entitic volume] by Automated count Low 83.5-101 [facility] Monocytes Auto (Bld) [#/Vol] Ordered By: Nina Aleta on 02-08-2024 Monocytes (Bld) [#/Vol] Automated blood monocyte count 0.0-0.8 [facility] Monocytes/100 WBC Auto (Bld) Ordered By: Nina Aleta on 02-08-2024 Monocytes/100 WBC (Bld) Automated monocyte % . [facility] Neutrophils Auto (Bld) [#/Vo l]Ordered By: Nina Aleta on 02-08-2024 Neutrophils (Bld) [#/Vol] Neutrophils [#/volume] in Blood by Automated count High 1.8-7.7 [facility] Neutrophils/100 WBC Auto (Bl d)Ordered By: Nina River on 02-08-2024 Neutrophils/100 WBC (Bld) Automated neutrophil % . [facility] No Panel InformationOrdered By: Nina River on 02-08-2024 Estimated GFR (CKD-EPI) 48.779 mL/Min [facility] Creatinine Clearance (Chem N/A [facility] Nucleated erythrocytes [Pres ence] in Blood by Automated countOrdered By: Nina River on 02-08-2024 Nucleated RBC Auto Ql (Bld) Nucleated erythrocytes [Presence] in Blood by Automated count 0-0.5 [facility] Platelet mean volume Auto (B ld) [Entitic vol]Ordered By: Nina River on 02-08-2024 Platelet mean volume (Bld) [Entitic vol] Platelet mean volume [Entitic volume] in Blood by Automated count 6.6-10.1 [facility] Platelets Auto (Bld) [#/Vol] Ordered By: Nina River on 02-08-2024 Platelets (Bld) [#/Vol] Platelets [#/volume] in Blood by Automated count 150-450 [facility] Potassium [Moles/volume] in Serum or PlasmaOrdered By: Nina River on 02-08-2024 Potassium [Moles/Vol] Potassium [Moles/v olume] in Serum or Plasma 3.5-5.1 [facility] RBC Auto (Bld) [#/Vol]Ordere d By: Nina River on 02-08-2024 RBC (Bld) [#/Vol] Erythrocytes [#/volu me] in Blood by Automated count Low 3.90-5.60 [facility] Serum or plasma anion gap de terminationOrdered By: Nina River on 02-08-2024 Anion gap [Moles/Vol] Serum or plasma an ion gap determination 6.0-15.0 [facility] Serum or plasma iron binding capacity measurement (mass/volume)Ordered By: Nina River on 02-08-2024 Iron binding capacity [Mass/Vol] Iron binding capacity [Mass/volume] in Serum or Plasma Low 255-450 [facility] Serum or plasma iron saturat ion measurement (mass fraction)Ordered By: Nnia River on 02-08-2024 Iron saturation [Mass fraction] Iron saturation [Mass Fraction] in Serum or Plasma [facility] Comment on above: Test not performed Sodium [Moles/volume] in Ser um or PlasmaOrdered By: Nina River on 02-08-2024 Sodium [Moles/Vol] Sodium [Moles/volume ] in Serum or Plasma 136-145 [facility] Transferrin [Mass/volume] in Serum or PlasmaOrdered By: Nina River on 02-08-2024 Transferrin [Mass/Vol] Transferrin [Mass/volume] in Serum or Plasma Low 203-362 [facility] Urea nitrogen [Mass/volume] in Serum or PlasmaOrdered By: Nina River on 02-08-2024 Urea nitrogen [Mass/Vol] Urea nitrogen [Mass/volume] in Serum or Plasma 7-25 [facility] Vitamin B12on 02-08-2024 Cobalamin (Vitamin B12) [Mass/Vol] 701 pg/mL Normal 180-914 [facility] Comment on above: Result Comment: PERF ORMED BY: [place] [address] PATHOLOGIST DINKEY OPERATOR SLAG FARRAH PAUL M.D. Performed By: #### B MP, FE PRO, B12, ESR, CRP, CBC #### [address] Vitamin B12 ser/plasOrdered By: Nina River on 02-08-2024 Cobalamin (Vitamin B12) [Mass/Vol] Vitamin B12 ser/plas 180-914 [facility] WBC Auto (Bld) [#/Vol]Ordere d By: Nina Aleta on 02-08-2024 WBC (Bld) [#/Vol] Leukocytes [#/volume ] in Blood by Automated count 4.1-10.5 [facility] Reminderson 11-15-2023 Reminders Reminders From: Ama Arteaga To: [place] - Recalls [place]; Sent: 11/15/2023 16:29:55 EDT Show up: 08/27/2024 16:29:00 EDT Subject: Cysto/UD Due Date/Time: 09/18/2024 16:29:00 EDT Reminder/Recall Patient is due in October 2024 for 1 year cysto/UD w Duarte sounds Normal [facility] BONE MARROWon 10-11-2023 BONE MARROW SEE SEPARATE REPORT Normal [facility] Comment on above: Result Comment: REVI EWED BY SOLEDAD HUYNH M.D. Performed By: #### E XHR, 50470-3, MDSDF #### [facility] ([id number]) [address] [place] [address] #### 05734-0, BONMAR #### [facility] ([id number]) [address] [place] [address] CBC AND AUTO DIFFon 10-11-19 24 ABSOLUTE BASOPHIL 0.0 X10E9/L Normal 0.0-0.2 [facility] Comment on above: Performed By: #### P INR, CBCA #### [facility] ([id number]) [address] [place] [address] ABSOLUTE NEUTROPHIL 8.0 X10E9/L High 1.5-6.6 [facility] Comment on above: Performed By: #### P INR, CBCA #### [facility] ([id number]) [address] [place] [address] Basophils/100 WBC (Bld) 0.3 % Normal [facility] Comment on above: Performed By: #### P INR, CBCA #### [facility] ([id number]) [address] [place] [address] Eosinophils (Bld) [#/Vol] 0.5 10*3/uL High 0.0-0.4 [facility] Comment on above: Performed By: #### P INR, CBCA #### [facility] ([id number]) [address] [place] [address] Eosinophils/100 WBC (Bld) 4.4 % Normal [facility] Comment on above: Performed By: #### P INR, CBCA #### [facility] ([id number]) [address] [place] [address] Erythrocyte distribution width (RBC) [Ratio] 16.8 % High 11.5-15.0 [facility] Comment on above: Performed By: #### P INR, CBCA #### [facility] ([id number]) [address] [place] [address] Hematocrit (Bld) [Volume fraction] 20.1 % Low 39-49 [facility] Comment on above: Performed By: #### P INR, CBCA #### [facility] ([id number]) [address] [place] [address] Hemoglobin (Bld) [Mass/Vol] 6.6 g/dL Critically low 13.0-17.0 [facility] Comment on above: Performed By: #### P INR, CBCA #### [facility] ([id number]) [address] [place] [address] Lymphocytes (Bld) [#/Vol] 1.4 10*3/uL Normal 1.0-3.5 [facility] Comment on above: Performed By: #### P INR, CBCA #### [facility] ([id number]) [address] [place] [address] Lymphocytes/100 WBC (Bld) 13.0 % Normal [facility] Comment on above: Performed By: #### P INR, CBCA #### [facility] ([id number]) [address] [place] [address] MCH (RBC) [Entitic mass] 24.7 pg Low 27-34 [facility] Comment on above: Performed By: #### P INR, CBCA #### [facility] ([id number]) [address] [place] [address] MCHC (RBC) [Mass/Vol] 32.6 g/dL Normal 32-36 [facility] Comment on above: Performed By: #### P INR, CBCA #### [facility] ([id number]) [address] [place] [address] 56292 MCV (RBC) [Entitic vol] 76 fL Low 80-100 [facility] Comment on above: Performed By: #### P INR, CBCA #### [facility] ([id number]) [address] [place] [address] 78183 Monocytes (Bld) [#/Vol] 0.9 10*3/uL Normal 0-0.9 [facility] Comment on above: Performed By: #### P INR, CBCA #### [facility] ([id number]) [address] [place] [address] 37680 Monocytes/100 WBC (Bld) 8.2 % Normal [facility] Comment on above: Performed By: #### P INR, CBCA #### [facility] ([id number]) [address] [place] [address] 79609 Neutrophils/100 WBC (Bld) 74.1 % Normal [facility] Comment on above: Performed By: #### P INR, CBCA #### [facility] ([id number]) [address] [place] [address] 45916 Platelet mean volume (Bld) [Entitic vol] 7.0 fL Normal 7-12 [facility] Comment on above: Performed By: #### P INR, CBCA #### [facility] ([id number]) [address] [place] [address] 41079 Platelets (Bld) [#/Vol] 371 10*3/uL Normal 150-450 [facility] Comment on above: Performed By: #### P INR, CBCA #### [facility] ([id number]) [address] [place] [address] RBC COUNT 2.66 X10E12/L Low 4.10-5.70 [facility] Comment on above: Performed By: #### P INR, CBCA #### [facility] ([id number]) [address] [place] [address] 80377 WBC (Bld) [#/Vol] 10.8 10*3/uL Normal 4.0-11.0 [facility] Comment on above: Performed By: #### P INR, CBCA #### [facility] ([id number]) [address] [place] [address] 98607 DNA and RNA Extract and Hold on 10-11-2023 DNA and RNA Extract and Hold SEE COMMENTS 10/14/2023 08:52 AM Normal [facility] Comment on above: Result Comment: NOTE [...] Molecular Hematopathology Laboratory's test catalog, please contact [facility] at [phone]. Method summary: DNA and RNA were extracted from the received specimen and stored at -80 C. This test was developed and its performance characteristics determined by [facility] in a manner consistent with CLIA requirements. This test has not been cleared or approved by the U.S. Food and Drug Administration. Test Performed by: [address] [address] Management Accounts Manager: Rosie Ruby Ph.D.; CLIA# [id number] Performed By: #### E XHR, 68489-9, MDSDF #### [facility] ([id number]) [address] [place] [address] 70258 #### 06894-6, PENNY #### [facility] ([id number]) [address], [address] [place] [address] Flow cytometry specialist re view Álvaro (Unsp spec) [Interp]on 10-11-2023 FLOW CYTOMETRY BM SEE SEPARATE REPORT, REVIEWED BY PATHOLOGIST [facility] Comment on above: Performed By: #### Luciana XHR, 13878-6, MDSDF #### [facility] ([id number]) [address] [place] [address] 44789 #### 45976-0, PENNY #### [facility] ([id number]) [address], [address] [place] [address] IR BX AND ASP BONE MARROW SN [...] on the left iliac bone using an [employer] powered bone marrow biopsy system. The bone [...] Guerrero MD on 10/11/2023 9:49 AM Normal [facility] Karyotype Nom (BM)on 024 CHROMOSOME BONE MARROW SEE COMMENTS 10/19/2023 02:37 PM Normal [facility] Comment on above: Result Comment: NOTE Test Result Flag Unit RefValue -- Chromosomes, Hematologic, BM Result Summary Normal Interpretation See Note No clonal abnormality was apparent. Since this conventional chromosome study was successful, MDS, Diag FISH was cancelled per lab protocol (Elder Christie et al., [facility], 146:86-94, 2016; [facility] MDS Algorithm: www.[facility].com/it-mmfiles/Myelodysplastic_Syndrome_G uideline_to_Diagnosis_and_Follow-up.pdf). Result 46,XY[20] Reason for Referral leukocytosis [...] of the testing process was performed at [facility] [employer] site [address]126. Released By Tanvi Loo M.D. Test Performed by: [facility] [place] [address] Management Accounts Manager: Rosie Ruby Ph.D.; CLIA# [id number] Performed By: #### E XHR, 26554-3, MDSDF #### [facility] ([id number]) [address] [place] [address]9429 #### 94949-8, [facility] #### [facility] ([id number]) [address] [place] [address], [address] [place] [address] MYELODYSPLASTIC SYNDROME ( S),DIAGNOSTIC FISH, [facility] 10-11-2023 MYELODYSPLASTIC SYNDROME (MDS),DIAGNOSTIC FISH, VARIES SEE COMMENTS 10/22/2023 08:45 AM Normal [facility] Comment on above: Result Comment: NOTE Test Result Flag Unit RefValue -- MDS, Diagnostic FISH Interpretation TNP MDS, Diagnostic FISH was cancelled on 10/22/2023 at 08:41; Based on other test results additional testing not required. MDS FISH order was cancelled per laboratory protocol (Elder et al., Amer J Clin Pathol 146:86-94, 2016; [facility] MDS Algorithm: www.[facility].com/it-mmfiles/Myelodysplastic_S yndrome_Guideline_ to_Diagnosis_and_Follow-up.pdf) with Probes -RPN1(G)/MECOM(R), -TP53(R)/D17Z1(G), -D8Z2(G)/MYC(R), -W75V478(R)/20QTER(G), -Y2V032(G)/EGR1(R), -D7Z1(G)/H7W818(R) Test Performed by: [place] [address] Management Accounts Manager: Rosie Ruby Ph.D.; CLIA# [id number] Performed By: #### E XHR, 79498-9, MDSDF #### [facility] ([id number]) [address] [place] [address] #### 06469-7, BONWARREN #### [facility] ([id number]) [address] [place] [address], [address] [place] [address] PROTIME AND INRon 10-11-2023 INR Coag (PPP) [Relative time] 1.3 {INR} High 0.8-1.1 [facility] Comment on above: Performed By: #### P INR, CBCA #### [facility] ([id number]) [address] [place] [address] 61595 PT Coag (PPP) [Time] 14.9 s High 9.8-13.2 [facility] Comment on above: Result Comment: NEW REFERENCE RANGE Performed By: #### P INR, CBCA #### [facility] ([id number]) [address] [place] [address] 16862 Surgical Pathologyon 024 Surgical Pathology Normal [facility] Comment on above: Result Comment: [facility] [address] [place] [address] Bone Marrow Consultation Patient Name:GANGA STINSON:1960 (Age: 63)Gender:MTaken:10/11/2023eported:10/14/2023hysician(s):Nina Aleta ([phone])Copy To:Khadar Guerrero M.D. Rec. #:[id number]: #[id number] Final Pathologic Diagnosis Bone marrow, aspiration and [...] acquisition are identified on maturing myeloid cells. [place] on the lymphoid population demonstrates a mixed population of phenotypically unremarkable T-cells, polyclonal B-cells, and natural killer cells, without a detectable monoclonal population. No monotypic plasma cell population is identified. Immunophenotyping antibodies tested: CD2, CD3, CD4, CD5, CD7, CD8, CD10, CD13, CD16, CD19, CD20 , CD23, CD33, CD34, CD38, CD43, CD45, CD56, CD117, CD123, CD138, Plandome, Lambda. Cytoplasmic Plandome/CD38, Cytoplasmic Lambda/CD38, and intrinsic VS38 Immunophenotyping Comment: Immunophenotyping has been used in this diagnostic evaluation. This test was developed and its performance characteristics determined by the [facility] Department. It has not been [...] Out Soledad Huynh MD Interpretation performed at [facility], [address] [place] [address], License number: [id number]. Clinical History Leukocytosis. Gross Description 1. Received in B plus fixative labeled ALLOWAY, clot is a friable portion of hemorrhagic material, 2.2 x 1.0 x 0.4 cm in aggregate. The specimen is submitted entirely in a single cassette. (1, ns, [id number], m1) LADONNA 2. Received in B plus fixative labeled ALLOWAY, core is a pale osborne-pardo cylindrical segment of bone with adherent hemorrhagic material, 1.0 cm in length and 0.2 cm in diameter. The specimen is submitted entirely in a single cassette following a period of decalcification in Rapid-Delbert Immuno. (1, ns, [id number], m1) LADONNA Comment: Per epic IR procedure [...] for Procedure/Surger yon 09-22-2023 Consent for Procedure/Surgery [id number]#1.00TIFF Normal [facility] Retail - Clinical Noteon Retail - Clinical Note [id number]#1.00TIFF Normal [facility] Martín 07-08-2023 L Specimen: [id number] Received: 07/12/23 Status: ROSIO Re Num: [id number] Spec Type: Surgical Subm Dr: Bubba Bahena DPM, MS Tissues: A Debridement-Skin/Other Than Skin (LEFT FIBULA) B Debridement-Skin/Other Than Skin (LEFT TALUS) Procedures: HE/2, Gross/Micro L3/2 Age/ Patient Sex Location Account Attending Physician Ganga Stinson 63/M LABELL [id number] Bubba Bahena DPM, MS SPEC NUM: [id number] RECD: 07/12/23 STATUS: [facility] NUM: [id number] NAYLA: 07/08/[address]: Bubba Bahena DPM, MS ENTERED: 07/12/[address] [facility] [address]: Titi,Lab SPEC TYPE: Surgical DEPT: [...] pressure ulcer of left heel?path pending Specimen: [id number] Received: 07/12/23 Status: ROSIO [place] Num: [id number] Spec Type: Surgical Subm Dr: Bubba Bahena,DPM, MS Tissues: A Debridement-Skin/Other Than Skin (LEFT FIBULA) B Debridement-Skin/Other Than Skin (LEFT TALUS) Procedures: HE/2, Gross/Micro L3/2 Patient: RubenGanga [id number] (Continued) Specimen: [id number] Received: 07/12/23 (Continued) Signed (signature on file) Anh Smith MD 07/14/23 1022 Specimen: [id number] Received: 07/12/23 Status: ROSIO [place] Num: [id number] Spec Type: Surgical Subm Dr: Bubba Bahena,DPSam, MS Tissues: A Debridement-Skin/Other Than Skin (LEFT FIBULA) B Debridement-Skin/Other Than Skin (LEFT TALUS) Procedures: HE/Brianne, Gross/Micro L3/2 Patient: Ganga Stinson [id number] (Continued) Specimen: [id number] Received: 07/12/23 (Continued) CPT Codes 39737 x 2 87728 x 2 Specimen: [id number] Received: 07/12/23 Status: ROSIO [place] Num: [id number] Spec Type: Surgical Subm Dr: Bubba Bahena,DPM, MS Tissues: A Debridement-Skin/Other Than Skin (LEFT FIBULA) B Debridement-Skin/Other Than Skin (LEFT TALUS) Procedures: HE/Brianne, Gianna/Margo L3/2 Patient: Ganga Stinson [id number] (Continued) Signed (signature on file) Anh Smith MD 07/14/23 1022 Normal [facility] Consent for Procedure/Surger yon 06-14-2023 Consent for Procedure/Surgery [id number]#1.00TIFF Normal [facility] Aerobic Cultureon 06-04-2023 Aerobic Culture Comment left fibular bone biopsy ORGANISM: Strep dysgalactiae (O:STRDYS) Quantity of Growth Heavy Growth Comment left 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 Comment left fibular bone biopsy Gram Stain Result No Bacteria Seen Rare White Blood Cells PERFORMED BY: [place] [address] PATHOLOGIST DINKEY OPERATOR SLAG FARRAH PAUL M.D. Normal [facility] Comment on above: Performed By: #### A ERC #### [address] Capillary blood glucose linda urement by glucometer (mass/volume)Ordered By: Jonathan Moffett on 06-04-2023 Glucose [Mass/Vol] 134 mg/dL Normal [facility] Comment on above: Random Glucose Refer ence Range is dependent on time and content of last meal. Glucose of more than 200 mg/dL in a nonstressed, ambulatory subject supports the diagnosis of Diabetes Mellitus. Result Comment: [place] Glucose Reference Range is dependent on time and content of last meal. Glucose of more than 200 mg/dL in a nonstressed, ambulatory subject supports the diagnosis of Diabetes Mellitus. PERFORMED BY: [facility] [address] [place] [address] PATHOLOGIST DINKEY OPERATOR SLAG FARRAH PAUL M.D. Performed By: #### G BHARATI #### Point of Care testing , Gram stain for investigation of transfusion reactionOrdered By: Jonathan Moffett on 06-04-2023 Microscopic observation Gram stain Nom (Unsp spec) Jorgelldaniela alejandre [facility] Reminderson 04-30-2023 Reminders - From: Ama Arteaga To: EU - Recalls Allen; Cc: Ama Arteaga; Sent: 01/15/2023 08:12:10 EDT Show up: 04/29/2023 08:12:00 EST Subject: Cysto/UD Due Date/Time: 06/07/2023 08:11:00 EDT Reminder/Recall Patient needs 6 month cysto/UD in June 2023 Spoke to pt, sched for 07/12/23 at [facility].LG Patient will be due in Dec 2023.LG Normal [facility] Ambulatory Visit Summaryon 1 Ambulatory Visit Summary GANGA STINSON :1960 Visit Date:01/19/2023 Ambulatory Visit Instructions Your Care Team Attending Physician - ALLEN NAZARIO, Jovanny Christie Primary Care Physician - FIDEL ABBOTT MD This Is Your Medications List [facility] [place] (IRON 65MG TAB) amlodipine (amLODIPine 10 [...] you for choosing us for your care. [facility] Operative Reporton Operative Report [id number]#1.00TIFF [facility] Pre-Certification Formon Pre-Certification Form [id number]#1.00TIFF [facility] Insurance Correspondenceon 0 12-25-2022 Insurance Correspondence [id number]#1.00CD:127 [facility] Consent for Procedure/Surger yon 12-22-2022 Consent for Procedure/Surgery [id number]#1.00CD:127 [facility] Cult,Urineon 09-26-2022 Cult,Urine Specimen Description .CLEAN CATCH URINE Culture NO SIGNIFICANT GROWTH Report Status FINAL 09/26/2022 [facility] Comment on above: Performed By: #### C MPX, CDP #### [facility] [address] [place] [address] Management Accounts Manager: Khadar Tang MD US RENAL COMPLETEon 09-20-19 [...] Alexander Mcclain DO 09/19/22 Final result Normal [facility] Unremarkable ultraso und of the kidneys and urinary bladder. [facility] EXAMINATION: RETROPERITONEAL ULTRASOUND OF THE KIDNEYS [...] the bladder. No significant post void residual. [facility] Alexander Mcclain DO - 09/19/2022 EXAMINATION: [...] Anion gap [Moles/Vol] 10 mmol/L Normal 9-17 [facility] Comment on above: Performed By: #### B MP #### [facility] [address] [place], [place] [address] Management Accounts Manager: Khadar Tang MD BUN/CRE Ratio 26 High 9-20 [facility] Comment on above: Performed By: #### B MP #### [facility] [address] [place] [address] Management Accounts Manager: Khadar Tang MD Calcium [Mass/Vol] 9.3 mg/dL Normal 8.6-10.4 [facility] Comment on above: Performed By: #### B MP #### [facility] [address] [place], [place] 4957483 Management Accounts Manager: Khadar Tang MD Chloride [Moles/Vol] 105 mmol/L Normal 98-107 [facility] Comment on above: Performed By: #### B MP #### [facility] [address] [place], [place] 2856083 Management Accounts Manager: Khadar Tang MD CO2 [Moles/Vol] 22 mmol/L Normal 20-31 [facility] Comment on above: Performed By: #### B MP #### [facility] [address] [place], [place] 1747283 Management Accounts Manager: Khadar Tang MD Creatinine [Mass/Vol] 1.25 mg/dL High 0.70-1.20 [facility] Comment on above: Performed By: #### B MP #### [facility] [address] [place] [address] Management Accounts Manager: Khadar aTng MD GFR/1.73 sq M.predicted among non-blacks MDRD (S/P/Bld) [Vol rate/Area] mL/min/{1.73_m2} Normal >60 [facility] Comment on [...] By: #### B MP #### [facility] [address] [place], [place] 2242183 Management Accounts Manager: Khadar Tang MD Glucose [Mass/Vol] 186 mg/dL High 70-99 [facility] Comment on above: Performed By: #### B MP #### [facility] [address] [place], [place] 618[address]83 Management Accounts Manager: Khadar Tang MD Potassium [Moles/Vol] 4.1 mmol/L Normal 3.7-5.3 [facility] Comment on above: Performed By: #### B MP #### [facility] [address] [place], [place] 434[address]83 Management Accounts Manager: Khadar Tang MD Sodium [Moles/Vol] 137 mmol/L Normal 135-144 [facility] Comment on above: Performed By: #### B MP #### [facility] [address] [place], [place] 9111383 Management Accounts Manager: Khadar Tang MD Urea nitrogen [Mass/Vol] 32 mg/dL High 8-23 [facility] Comment on above: Performed By: #### B MP #### [facility] [address] [place], [place] 6930583 Management Accounts Manager: Khadar Tang MD RENAL COMPLETEon 09-19-19 Radiology Study observation (narrative) [facility] Hemoglobin A1Con 2022 Glucose [Mass/Vol] 171 mg/dL Normal [facility] Comment on above: Result Comment: The ADA and AACC recommend providing the estimated average glucose result to permit better patient understanding of their HBA1c result. Performed By: #### G LYHGB #### [facility] [employer] [address] [place] [address] Management Accounts Manager: Jeff Casanova MD HbA1c (Bld) [Mass fraction] 7.6 % High 4.0-6.0 [facility] Comment on above: Performed By: #### G LYHGB #### [facility] [address] [place] [address] Management Accounts Manager: Jeff Casanova MD OPERATIVE REPORTon 3 OPERATIVE REPORT [address] [address] OPERATIVE REPORT PATIENT NAME: GANGA STINSON : 1960 MED REC NO: [id number] ROOM: ACCOUNT NO: [id number] ADMIT DATE: 2022 PROVIDER: Angeles Nagy DATE OF PROCEDURE: 2022 SURGEON: Dr. Angeles Nagy. SUPERVISOR VARNISH: None. PREOPERATIVE DIAGNOSES: 1. Neurogenic bladder. 2. Urethral stricture. POSTOPERATIVE DIAGNOSES: 1. Neurogenic bladder. 2. Urethral stricture. PROCEDURE PERFORMED: Direct visual internal urethrotomy. ANESTHESIA: General. COMPLICATIONS: None. ESTIMATED BLOOD LOSS: Minimal. SPECIMENS: None. PROSTHESIS: An 18-Northern Irish Rowe catheter. DISPOSITION: Stable. FINDINGS: Bulbous urethral stricture. 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 DESCRIPTION OF PROCEDURE: The patient was taken back to the operating room after informed consent including all risks, benefits, and alternatives were obtained. The patient was transferred from the [facility] onto the operating room table, where he was induced under general anesthesia and given IV Ancef for preoperative antibiotic prophylaxis. To begin the case, he was prepped and draped in the normal sterile fashion and placed in dorsal lithotomy. He had a 21-Northern Irish sheath with a 30-degree lens passed through [...] then removed the scope and inserted an 18-Northern Irish Rowe catheter with ease. He was then awoken from general anesthesia, transferred to the [facility], and taken to the PACU in satisfactory condition by Nursing and Anesthesia Teams. PLAN: The patient will be discharged home per PACU criterion and follow up with me in one week for Rowe catheter removal. ANGELES LILO TZ/[id number] Doc#: [id number] CC: Normal [facility] Basic Metabolic Panelon Anion gap [Moles/Vol] 10 mmol/L 9 - 17 mmol/L [employer] Calcium [Mass/Vol] 8.8 mg/dL 8.6 - 10. 4 mg/dL [facility] Chloride [Moles/Vol] 106 mmol/L 98 - 10 7 mmol/L [facility] CO2 [Moles/Vol] 24 mmol/L 20 - 31 mmol/L [facility] Creatinine [Mass/Vol] 1.3 mg/dL High 0.70 - 1.20 mg/dL [facility] GFR/1.73 sq M.predicted MDRD (S/P/Bld) [Vol rate/Area] - [facility] [employer] Comment on above: These results are not [...] 250 mg/dL High 70 - 99 mg/dL [facility] Interpretation and review of laboratory results Abnormal [facility] Potassium [Moles/Vol] 4.0 mmol/L 3.7 - 5.3 mmol/L [facility] Sodium [Moles/Vol] 140 mmol/L 135 - 144 mmol/L [facility] Urea nitrogen [Mass/Vol] 29 mg/dL High 8 - 23 mg/dL [facility] Urea nitrogen/Creatinine (Bld) [Mass ratio] 22 High 9 - 20 [facility] Basic Metabolic Profon 07-02 Anion gap [Moles/Vol] 10 mmol/L Normal 9-17 [facility] Comment on above: Performed By: #### C MPX, CDP #### [facility] [address] [place], [place] [id number] Management Accounts Manager: Khadar Tang MD BUN/CRE Ratio 22 High 9-20 [facility] Comment on above: Performed By: #### C MPX, CDP #### [facility] [address] [place], [place] 1672183 Management Accounts Manager: Khadar Tang MD Calcium [Mass/Vol] 8.8 mg/dL Normal 8.6-10.4 [facility] Comment on above: Performed By: #### C MPX, CDP #### [facility] [address] [place], [place] 6913683 Management Accounts Manager: Khadar Tang MD Chloride [Moles/Vol] 106 mmol/L Normal 98-107 [facility] Comment on above: Performed By: #### C MPX, CDP #### [facility] [address] [place], [place] 0620583 Management Accounts Manager: Khadar Tang MD CO2 [Moles/Vol] 24 mmol/L Normal 20-31 [facility] Comment on above: Performed By: #### C MPX, CDP #### [facility] [address] [place], [place] 1223683 Management Accounts Manager: Khadar Tang MD Creatinine [Mass/Vol] 1.30 mg/dL High 0.70-1.20 [facility] Comment on above: Performed By: #### C MPX, CDP #### [facility] [address] [place] [address] Management Accounts Manager: Khadar Tang MD GFR/1.73 sq M.predicted among non-blacks MDRD (S/P/Bld) [Vol rate/Area] mL/min/{1.73_m2} Normal >60 [facility] Comment on [...] #### C MPX, CDP #### [facility] [address] [place], [place] 3520983 Management Accounts Manager: Khadar Tang MD Glucose [Mass/Vol] 250 mg/dL High 70-99 [facility] Comment on above: Performed By: #### C MPX, CDP #### [facility] [address] [place] [address] [address] [place], [place] 5254983 Management Accounts Manager: Khadar Tang MD Potassium [Moles/Vol] 4.0 mmol/L Normal 3.7-5.3 [facility] Comment on above: Performed By: #### C MPX, CDP #### [facility] [address] [place] [address] [address] [place], [place] [id number] Management Accounts Manager: Khadar Tang MD Sodium [Moles/Vol] 140 mmol/L Normal 135-144 [facility] Comment on above: Performed By: #### C MPX, CDP #### [facility] [address] [place], [place] [id number] Management Accounts Manager: Khadar Tang MD Urea nitrogen [Mass/Vol] 29 mg/dL High 8-23 [facility] Comment on above: Performed By: #### C MPX, CDP #### [facility] [address] [place], [place] [id number] Management Accounts Manager: Khadar Tang MD CBC with Auto Differentialon 07-02-2022 Absolute Eos # 0.80 High [facility] Absolute Immature Granulocyte 0.06 [facility] Absolute Lymph # 1.38 [facility] Absolute Yates # 0.81 [facility] Basophils Absolute [facility] Basophils/100 WBC (Bld) 0 % 0 [...] 3.39 10*6/uL Low 4.21 - 5.77 m/uL [facility] Segmented neutrophils/100 WBC (Bld) 71 % High 36 - 65 % [facility] Segs Absolute 7.79 [facility] WBC (Bld) [#/Vol] 10.9 10*3/uL [facility] CBC with Diffon 07-02-2022 Abs. Basophil <0.03 Normal 0.00-0.20 [facility] Comment on above: Performed By: #### C MPX, CDP #### [address] [place], [place] [id number] Management Accounts Manager: Khadar Tang MD Abs.Imm.Granulocyte 0.06 k/uL Normal 0.00-0.30 [facility] Comment on above: Performed By: #### C MPX, CDP #### [address] [place], [facility]83 Management Accounts Manager: Khadar Tang MD Abs.Neutrophil (Seg) 7.79 k/uL Normal 1.50-8.10 [facility] Comment on above: Performed By: #### C MPX, CDP #### [address] [place] [id number] Management Accounts Manager: Khadar Tang MD Basophils/100 WBC (Bld) 0 % Normal 0-2 [facility] Comment on above: Performed By: #### C MPX, CDP #### [address] [place], [place] [address] Management Accounts Manager: Khadar Tang MD Eosinophils (Bld) [#/Vol] 0.80 10*3/uL High 0.00-0.44 [facility] Comment on above: Performed By: #### C MPX, CDP #### [address] [place], [place] [address] Management Accounts Manager: Khadar Tang MD Eosinophils/100 WBC (Bld) 7 % High 1-4 [facility] Comment on above: Performed By: #### C MPX, CDP #### [address] [place], [facility]83 Management Accounts Manager: Khadar Tang MD Erythrocyte distribution width (RBC) [Ratio] 16.1 % High 11.8-14.4 [facility] Comment on above: Performed By: #### C MPX, CDP #### [facility] [address] [place] [address] Management Accounts Manager: Khadar Tang MD Hematocrit (Bld) [Volume fraction] 26.8 % Low 40.7-50.3 [facility] Comment on above: Performed By: #### C MPX, CDP #### [facility] [address] [place] [address] Dr. [place], [place] [phone] Management Accounts Manager: Khadar Tang MD Hemoglobin (Bld) [Mass/Vol] 7.9 g/dL Low 13.0-17.0 [facility] Comment on above: Performed By: #### C MPX, CDP #### [address] [place] [address] Management Accounts Manager: Khadar Tang MD Immature granulocytes/100 WBC (Bld) 1 % High 0 [facility] Comment on above: Performed By: #### C MPX, CDP #### [address] [place], [place] [id number] Management Accounts Manager: Khadar Tang MD Lymphocytes (Bld) [#/Vol] 1.38 10*3/uL Normal 1.10-3.70 [facility] Comment on above: Performed By: #### C MPX, CDP #### [address] [place], [place] 9491583 Management Accounts Manager: Khadar Tang MD Lymphocytes/100 WBC (Bld) 13 % Low 24-43 [facility] Comment on above: Performed By: #### C MPX, CDP #### [address] [place] [address] Management Accounts Manager: Khadar aTng MD MCH (RBC) [Entitic mass] 23.3 pg Low 25.2-33.5 [facility] Comment on above: Performed By: #### C MPX, CDP #### [facility] [address] [place] [address] Dr. [place], [place] [phone] Management Accounts Manager: Khadar Tang MD MCHC (RBC) [Mass/Vol] 29.5 g/dL Normal 28.4-34.8 [facility] Comment on above: Performed By: #### C MPX, CDP #### [address] [place], [place] [id number] Management Accounts Manager: Khadar Tang MD MCV (RBC) [Entitic vol] 79.1 fL Low 82.6-102.9 [facility] Comment on above: Performed By: #### C MPX, CDP #### [address] [place], [place] [id number] Management Accounts Manager: Khadar Tang MD Monocytes (Bld) [#/Vol] 0.81 10*3/uL Normal 0.10-1.20 [facility] Comment on above: Performed By: #### C MPX, CDP #### [address] [place], [place] [phone] Management Accounts Manager: Khadar Tang MD Monocytes/100 WBC (Bld) 8 % Normal 3-12 [facility] Comment on above: Performed By: #### C MPX, CDP #### [address] [place], [place] [phone] Management Accounts Manager: Khadar Tang MD Neutrophil (Seg) 71 % High 36-65 [facility] Comment on above: Performed By: #### C MPX, CDP #### [address] [place], [place] [id number] Management Accounts Manager: Khadar Tang MD NRBC Automated 0.0 per 100 WBC Normal 0.0 [facility] Comment on above: Performed By: #### C MPX, CDP #### [address] [place] [address] [place] [address] Management Accounts Manager: Khadar Tang MD Platelet mean volume (Bld) [Entitic vol] 9.1 fL Normal 8.1-13.5 [facility] Comment on above: Performed By: #### C MPX, CDP #### [facility] [address] [place], [place] 2452983 Management Accounts Manager: Khadar Tang MD Platelets (Bld) [#/Vol] 241 10*3/uL Normal 138-453 [facility] Comment on above: Performed By: #### C MPX, CDP #### [facility] [address] [place], [place] [id number] Management Accounts Manager: Khadar Tang MD RBC (Bld) [#/Vol] 3.39 10*6/uL Low 4.21-5.77 [facility] Comment on above: Performed By: #### C MPX, CDP #### [facility] [address] [place], [place] [id number] Management Accounts Manager: Khadar Tang MD WBC (Bld) [#/Vol] 10.9 10*3/uL Normal 3.5-11.3 [facility] Comment on above: Performed By: #### C MPX, CDP #### [facility] [address] [place], [place] [id number] Management Accounts Manager: Khadar Tang MD Cult,Woundon 06-27-2022 Cult,Wound Specimen Description .WOUND Special Requests LEG Direct Exam NO NEUTROPHILS SEEN NO ORGANISMS SEEN Culture NO GROWTH Report Status FINAL 06/27/2022 Normal [facility] Comment on above: Performed By: #### C MPX, CDP #### [facility] [address] [place], [place] [address] Management Accounts Manager: Khadar Tang MD CBC auto differentialon 05-29 Absolute Eos # 0.63 High [facility] Absolute Immature Granulocyte 0.05 [facility] Absolute Lymph # 1.33 [facility] Absolute Yates # 0.82 [facility] Basophils Absolute [facility] Basophils/100 WBC (Bld) 0 % 0 [...] 3.20 10*6/uL Low 4.21 - 5.77 m/uL [facility] Segmented neutrophils/100 WBC (Bld) 69 % High 36 - 65 % [facility] Segs Absolute 6.49 [facility] WBC (Bld) [#/Vol] 9.3 10*3/uL [facility] CBC with Diffon 06-26-2022 Abs. Basophil <0.03 Normal 0.00-0.20 [facility] Comment on above: Performed By: #### C MPX, CDP #### [address] [place] [address] Management Accounts Manager: Khadar Tang MD Abs.Imm.Granulocyte 0.05 k/uL Normal 0.00-0.30 [facility] Comment on above: Performed By: #### C MPX, CDP #### [address] [place] [place] [address] Management Accounts Manager: Khadar Tang MD Abs.Neutrophil (Seg) 6.49 k/uL Normal 1.50-8.10 [facility] Comment on above: Performed By: #### C MPX, CDP #### [address] [place] [place] [address] Management Accounts Manager: Khadar Tang MD Basophils/100 WBC (Bld) 0 % Normal 0-2 [facility] Comment on above: Performed By: #### C MPX, CDP #### [address] [place] [place] [address] Management Accounts Manager: Khadar Tang MD Eosinophils (Bld) [#/Vol] 0.63 10*3/uL High 0.00-0.44 [facility] Comment on above: Performed By: #### C MPX, CDP #### [address] [place] [place] [address] Management Accounts Manager: Khadar Tang MD Eosinophils/100 WBC (Bld) 7 % High 1-4 [facility] Comment on above: Performed By: #### C MPX, CDP #### [address] [place] [id number] ( Management Accounts Manager: Khadar Tang MD Erythrocyte distribution width (RBC) [Ratio] 16.0 % High 11.8-14.4 [facility] Comment on above: Performed By: #### C MPX, CDP #### [address] [place], [place] 0470183 Management Accounts Manager: Khadar Tang MD Hematocrit (Bld) [Volume fraction] 24.4 % Low 40.7-50.3 [facility] Comment on above: Performed By: #### C MPX, CDP #### [facility] [address] [place] [address] Dr. [place], [place] [phone] Management Accounts Manager: Khadar Tang MD Hemoglobin (Bld) [Mass/Vol] 7.6 g/dL Low 13.0-17.0 [facility] Comment on above: Performed By: #### C MPX, CDP #### [address] [place] [id number] Management Accounts Manager: Khadar Tang MD Immature granulocytes/100 WBC (Bld) 1 % High 0 [facility] Comment on above: Performed By: #### C MPX, CDP #### [address] [place], [facility]83 Management Accounts Manager: Khadar Tang MD Lymphocytes (Bld) [#/Vol] 1.33 10*3/uL Normal 1.10-3.70 [facility] Comment on above: Performed By: #### C MPX, CDP #### [address] [place], [facility]83 Management Accounts Manager: Khadar Tang MD Lymphocytes/100 WBC (Bld) 14 % Low 24-43 [facility] Comment on above: Performed By: #### C MPX, CDP #### [address] [place], [place] 7582983 Management Accounts Manager: Khadar Tang MD MCH (RBC) [Entitic mass] 23.8 pg Low 25.2-33.5 [facility] Comment on above: Performed By: #### C MPX, CDP #### [facility] [address] [place] [address] Dr. [place], [facility]83 Management Accounts Manager: Khadar Tang MD MCHC (RBC) [Mass/Vol] 31.1 g/dL Normal 28.4-34.8 [facility] Comment on above: Performed By: #### C MPX, CDP #### [facility] [address] [place], [place] [phone] Management Accounts Manager: Khadar Tang MD MCV (RBC) [Entitic vol] 76.3 fL Low 82.6-102.9 [facility] Comment on above: Performed By: #### C MPX, CDP #### [address] [place], [place] [phone] Management Accounts Manager: Khadar Tang MD Monocytes (Bld) [#/Vol] 0.82 10*3/uL Normal 0.10-1.20 [facility] Comment on above: Performed By: #### C MPX, CDP #### [address] [place], [place] 4780383 Management Accounts Manager: Khadar Tang MD Monocytes/100 WBC (Bld) 9 % Normal 3-12 [facility] Comment on above: Performed By: #### C MPX, CDP #### [address] [place], [place] 9573383 Management Accounts Manager: Khadar Tang MD Neutrophil (Seg) 69 % High 36-65 [facility] Comment on above: Performed By: #### C MPX, CDP #### [facility] [address] [place] [address] Dr. [place], [place] [phone] Management Accounts Manager: Khadar Tang MD NRBC Automated 0.0 per 100 WBC Normal 0.0 [facility] Comment on above: Performed By: #### C MPX, CDP #### [address] [place], [place] 9793283 Management Accounts Manager: Khadar Tang MD Platelet mean volume (Bld) [Entitic vol] 8.8 fL Normal 8.1-13.5 [facility] Comment on above: Performed By: #### C MPX, CDP #### [facility] [address] [place], [place] 0796883 Management Accounts Manager: Khadar Tang MD Platelets (Bld) [#/Vol] 205 10*3/uL Normal 138-453 [facility] Comment on above: Performed By: #### C MPX, CDP #### [facility] [address] [place], [place] 7771983 Management Accounts Manager: Khadar Tang MD RBC (Bld) [#/Vol] 3.20 10*6/uL Low 4.21-5.77 [facility] Comment on above: Performed By: #### C MPX, CDP #### [facility] [address] [place], [place] 1568183 Management Accounts Manager: Khadar Tang MD WBC (Bld) [#/Vol] 9.3 10*3/uL Normal 3.5-11.3 [facility] Comment on above: Performed By: #### C MPX, CDP #### [facility] [address] [place], [place] 0220483 Management Accounts Manager: Khadar Tang MD EKG Rhythm Stripon 3 rd [facility] Glucose, Whole Bloodon 06-26 Glucose [Mass/Vol] 95 mg/dL 74 - 100 mg/dL [facility] No Panel Informationon 06-26 No dictation [facility] [...] SURGICAL PATHOLOGY CONSULTATION Patient Name: GANGA STINSON [facility] Rec: [id number] Path Number: [id number] [facility] [employer] [facility] ANATOMIC PATHOLOGY [address] [place] [id number] Normal [facility] Comment on above: Performed By: #### C MPX, CDP #### [facility] [address] [place] [address] Management Accounts Manager: Khadar Tang MD Blood occult stool #1on 05-29 Date, Stool #1 3 [facility] Comment on above: 30 23 Hemoglobin.gastrointe stinal spec 1 Ql (Stl) Negative NEGATIVE [facility] Time, Stool #1 1945 [facility] CBC auto differentialon 05-29 Absolute Eos # 0.63 High [facility] Absolute Immature Granulocyte 0.07 [facility] Absolute Lymph # 1.63 [facility] Absolute Yates # 0.76 [facility] Basophils Absolute [facility] Basophils/100 WBC (Bld) 0 % 0 - 2 % [facility] Eosinophils/100 WBC (Bld) 7 % High 1 - 4 % [facility] Hematocrit (Bld) [Volume fraction] 24.6 % Low 40.7 - 50.3 % [facility] [...] 3.21 10*6/uL Low 4.21 - 5.77 m/uL [facility] Segmented neutrophils/100 WBC (Bld) 64 % 36 - 65 % [facility] Segs Absolute 5.60 [facility] WBC (Bld) [#/Vol] 8.7 10*3/uL [facility] CBC with Diffon 06-25-2022 Abs. Basophil <0.03 Normal 0.00-0.20 [facility] Comment on above: Performed By: #### T ROPI #### [facility] [address] [place] [address] [place], [place] [address] Management Accounts Manager: Khadar Tang MD Abs.Imm.Granulocyte 0.07 k/uL Normal 0.00-0.30 [facility] Comment on above: Performed By: #### T ROPI #### [facility] [address] [place] [address] Management Accounts Manager: Khadar Tang MD Abs.Neutrophil (Seg) 5.60 k/uL Normal 1.50-8.10 [facility] Comment on above: Performed By: #### T ROPI #### [facility] [address] [place], [place] [id number] Management Accounts Manager: Khadar Tang MD Basophils/100 WBC (Bld) 0 % Normal 0-2 [facility] Comment on above: Performed By: #### T ROPI #### [address] [place], [place] 7559683 Management Accounts Manager: Khadar Tang MD Eosinophils (Bld) [#/Vol] 0.63 10*3/uL High 0.00-0.44 [facility] Comment on above: Performed By: #### T ROPI #### [address] [place], [place] [phone] Management Accounts Manager: Khadar Tang MD Eosinophils/100 WBC (Bld) 7 % High 1-4 [facility] Comment on above: Performed By: #### T ROPI #### [address] [place], [facility]83 Management Accounts Manager: Khadar Tang MD Erythrocyte distribution width (RBC) [Ratio] 15.9 % High 11.8-14.4 [facility] Comment on above: Performed By: #### T ROPI #### [address] [place], [facility]83 Management Accounts Manager: Khadar Tang MD Hematocrit (Bld) [Volume fraction] 24.6 % Low 40.7-50.3 [facility] Comment on above: Performed By: #### T ROPI #### [address] [place], [place] [phone] Management Accounts Manager: Khadar Tang MD Hemoglobin (Bld) [Mass/Vol] 7.6 g/dL Low 13.0-17.0 [facility] Comment on above: Performed By: #### T ROPI #### [address] [place], [place] 2759383 Management Accounts Manager: Khadar Tang MD Immature granulocytes/100 WBC (Bld) 1 % High 0 [facility] Comment on above: Performed By: #### T ROPI #### [facility] [address] [place], [place] [address] Management Accounts Manager: Khadar Tang MD Lymphocytes (Bld) [#/Vol] 1.63 10*3/uL Normal 1.10-3.70 [facility] Comment on above: Performed By: #### T ROPI #### [facility] [address] [place] [address] Dr. [place], [place] [phone] Management Accounts Manager: Khadar Tang MD Lymphocytes/100 WBC (Bld) 19 % Low 24-43 [facility] Comment on above: Performed By: #### T ROPI #### [address] [place] [address] Management Accounts Manager: Khadar Tang MD MCH (RBC) [Entitic mass] 23.7 pg Low 25.2-33.5 [facility] Comment on above: Performed By: #### T ROPI #### [address] [place] [address] Management Accounts Manager: Khadar Tang MD MCHC (RBC) [Mass/Vol] 30.9 g/dL Normal 28.4-34.8 [facility] Comment on above: Performed By: #### T ROPI #### [facility] [address] [place] [address] [place], [place] [address] Management Accounts Manager: Khadar Tang MD MCV (RBC) [Entitic vol] 76.6 fL Low 82.6-102.9 [facility] Comment on above: Performed By: #### T ROPI #### [address] [place] [address] Management Accounts Manager: Khadar Tang MD Monocytes (Bld) [#/Vol] 0.76 10*3/uL Normal 0.10-1.20 [facility] Comment on above: Performed By: #### T ROPI #### [facility] [address] [place], [place] 6629983 Management Accounts Manager: Khadar Tang MD Monocytes/100 WBC (Bld) 9 % Normal 3-12 [facility] Comment on above: Performed By: #### T ROPI #### [facility] [address] [place], [facility]83 Management Accounts Manager: Khadar Tang MD Neutrophil (Seg) 64 % Normal 36-65 [facility] Comment on above: Performed By: #### T ROPI #### [facility] [address] [place], [place] 4883983 Management Accounts Manager: Khadra Tang MD NRBC Automated 0.0 per 100 WBC Normal 0.0 [facility] Comment on above: Performed By: #### T ROPI #### [facility] [address] [place], [facility]83 Management Accounts Manager: Khadar Tang MD Platelet mean volume (Bld) [Entitic vol] 8.9 fL Normal 8.1-13.5 [facility] Comment on above: Performed By: #### T ROPI #### [address] [place], [place] 5981383 Management Accounts Manager: Khadar Tang MD Platelets (Bld) [#/Vol] 223 10*3/uL Normal 138-453 [facility] Comment on above: Performed By: #### T ROPI #### [facility] [address] [place], [place] [phone] Management Accounts Manager: Khadar Tang MD RBC (Bld) [#/Vol] 3.21 10*6/uL Low 4.21-5.77 [facility] Comment on above: Performed By: #### T ROPI #### [facility] [address] [place], [place] [id number] Management Accounts Manager: Khadar Tang MD WBC (Bld) [#/Vol] 8.7 10*3/uL Normal 3.5-11.3 [facility] Comment on above: Performed By: #### T ROPI #### [facility] [address] [place], [place] [id number] Management Accounts Manager: Khadar Tang MD Comp Metabolic Pr/rfx MGon 0 - Albumin [Mass/Vol] 2.8 g/dL Low 3.5-5.2 [facility] Comment on above: Performed By: #### T ROPI #### [facility] [address] [place], [place] 1939783 Management Accounts Manager: Khadar Tang MD Albumin/Glob Ratio 0.7 Low 1.0-2.5 [facility] Comment on above: Performed By: #### T ROPI #### [facility] [address] [place], [place] [phone] Management Accounts Manager: Khadar Tang MD Alkaline Phos 75 U/L Normal 40-129 [facility] Comment on above: Performed By: #### T ROPI #### [facility] [address] [place] [address] Dr. [place], [place] [phone] Management Accounts Manager: Khadar Tang MD ALT [Catalytic activity/Vol] 9 U/L Normal 5-41 [facility] Comment on above: Performed By: #### T ROPI #### [facility] [address] [place], [place] 6366083 Management Accounts Manager: Khadar Tang MD Anion gap [Moles/Vol] 6 mmol/L Low 9-17 [facility] Comment on above: Performed By: #### T ROPI #### [facility] [address] [place], [place] [id number] Management Accounts Manager: Khadar Tang MD AST [Catalytic activity/Vol] 10 U/L Normal <40 [facility] Comment on above: Performed By: #### T ROPI #### [facility] [address] [place], [place] [phone] Management Accounts Manager: Khadar Tang MD Bilirubin [Mass/Vol] 0.3 mg/dL Normal 0.3-1.2 [facility] Comment on above: Performed By: #### T ROPI #### [facility] [address] [place], [place] 4803383 Management Accounts Manager: Khadar Tang MD BUN/CRE Ratio 20 Normal 9-20 [facility] Comment on above: Performed By: #### T ROPI #### [facility] [address] [place], [place] 0136983 Management Accounts Manager: Khadar Tang MD Calcium [Mass/Vol] 8.7 mg/dL Normal 8.6-10.4 [facility] Comment on above: Performed By: #### T ROPI #### [facility] [address] [place], [place] 8669183 Management Accounts Manager: Khadar Tang MD Chloride [Moles/Vol] 113 mmol/L High 98-107 [facility] Comment on above: Performed By: #### T ROPI #### [facility] [address] [place], [place] 3781483 Management Accounts Manager: Khadar Tang MD CO2 [Moles/Vol] 20 mmol/L Normal 20-31 [facility] Comment on above: Performed By: #### T ROPI #### [facility] [address] [place], [place] [phone] Management Accounts Manager: Khadar Tang MD Creatinine [Mass/Vol] 0.97 mg/dL Normal 0.70-1.20 [facility] Comment on above: Performed By: #### T ROPI #### [facility] [address] [place], [place] [id number] Management Accounts Manager: Khadar Tang MD GFR/1.73 sq M.predicted among non-blacks MDRD (S/P/Bld) [Vol rate/Area] mL/min/{1.73_m2} Normal >60 [facility] Comment on [...] By: #### T ROPI #### [facility] [address] [place] [address] [place], [place] [address] Management Accounts Manager: Khadar Tang MD Glucose [Mass/Vol] 144 mg/dL High 70-99 [facility] Comment on above: Performed By: #### T ROPI #### [facility] [address] [place] [address] [place], [place] [address] Management Accounts Manager: hKadar Tang MD Potassium [Moles/Vol] 4.5 mmol/L Normal 3.7-5.3 [facility] Comment on above: Performed By: #### T ROPI #### [address] [place] [address] Management Accounts Manager: Khadar Tang MD Protein [Mass/Vol] 6.7 g/dL Normal 6.4-8.3 [facility] Comment on above: Performed By: #### T ROPI #### [facility] [address] [place] [address] [place], [place] [address] Management Accounts Manager: Khadar Tang MD Sodium [Moles/Vol] 139 mmol/L Normal 135-144 [facility] Comment on above: Performed By: #### T ROPI #### [facility] [address] [place] [address] [place], [place] [address] Management Accounts Manager: Khadar Tang MD Urea nitrogen [Mass/Vol] 19 mg/dL Normal 8-23 [facility] Comment on above: Performed By: #### T CINDY #### [facility] [address] [place], [place] [address] Management Accounts Manager: Khadar Tang MD Comprehensive Metabolic Pane l [...] CENTER Bilirubin [Mass/Vol] 0.3 mg/dL 0.3 - 1 .2 mg/dL [facility] Calcium [Mass/Vol] 8.7 mg/dL 8.6 - 10. 4 mg/dL [facility] Chloride [Moles/Vol] 113 mmol/L High 98 - 10 7 mmol/L [facility] CO2 [...] mg/dL [facility] Urea nitrogen/Creatinine (Bld) [Mass ratio] 20 9 - 20 [facility] Cult,Woundon 06-25-2022 Cult,Wound Specimen Description .BUTTOCK Direct Exam FEW NEUTROPHILS MODERATE GRAM POSITIVE COCCI IN PAIRS MODERATE GRAM POSITIVE RODS Culture NORMAL SKIN ROBBIE Report Status FINAL 06/25/2022 [facility] Comment on above: Performed By: #### T ROPI #### [facility] [address] [place], [place] [address] Management Accounts Manager: Khadar Tang MD EKG Rhythm Stripon 3 [facility] Occult Blood, Fecalon 2022 Occult Blood 1 Negative Normal NEG [facility] Comment on above: Performed By: #### C MPX, CDP #### [facility] [address] [place], [place] [address] Management Accounts Manager: Khadar Tang MD Specimen 1 Date [facility] Comment on above: Result Comment: Performed By: #### C FIFI, CDP #### [facility] [address] [place], [place] [address] Management Accounts Manager: Khadar Tang MD Specimen 1 Time 1944 [facility] Comment on above: Performed By: #### C MPX, CDP #### [facility] [address] [place] [address] Management Accounts Manager: Khadar Tnag MD Surgical Pathologyon 023 Surgical Pathology (NOTE) -- Diagnosis -- RIGHT ANKLE, FIBULAR MALLEOLUS, BONE, EXCISION: - BENIGN BONE WITH HYPOCELLULAR AND FOCALLY FIBROTIC MARROW. - BENIGN PERIOSTEAL TISSUE WITH REACTIVE FIBROSIS. - NEGATIVE FOR OSTEOMYELITIS AND NEOPLASIA. Dilan Salvador M.D. Electronically Signed Out [facility]/06/29/2022 Clinical Information Operative Findings: FIBULAR MALLEOLUS, RIGHT ANKLE tm Source of Specimen A: FIBULAR MALLEOLUS,RIGHT ANKLE Gross Description YAA RODRIGUEZ Received in formalin is a 0.8 x 0.2 x 0.1 cm pardo, firm tissue fragment. Totally embedded 1c, decal. tm Microscopic Description Microscopic examination performed. SURGICAL PATHOLOGY CONSULTATION Patient Name: GANGA STINSON [facility] Rec: [id number] Path Number: [id number] [facility] [employer] [facility] ANATOMIC PATHOLOGY [address] [place] [id number] Normal [facility] Comment on above: Performed By: #### C MPX, CDP #### [address] [place] [address] Management Accounts Manager: Khadar Tang MD TYPE AND SCREENon 06-25-2022 ABO/Rh Negative [facility] Arm Band Number [id number] [facility] Blood Bank Blood Product Expiration Date [id number] [facility] Blood Bank ISBT Product Blood Type 9500 [facility] Blood Bank Unit Type and Rh Negative [facility] Blood product type Nom (BPU) Leukocyte Reduced Red Cell [facility] Blood product unit ID (Dose) [#] [id number] [facility] Crossmatch Result COMPATIBLE [facility] Dispense Status TRANSFUSED [facility] Expiration Date 06/27/2022,2359 [facility] Product Code Blood Bank [id number] [facility] Transfusion Status OK TO TRANSFUSE B ON [facility] Unit Divison 0 [facility] Unit Issue Date/Time [id number] [facility] APTTon 06-24-2022 aPTT Coag (Bld) [Time] 35.6 s High 26.8-34.8 [facility] Comment on above: Result Comment: IV Heparin Therapy Range: 62.0-94.0 Performed By: #### C MPX, CDP #### [facility] [address] [place], [place] [id number] Management Accounts Manager: Khadar Tang MD B12/Folate Panelon Cobalamin (Vitamin B12) [Mass/Vol] 446 pg/mL Normal 232-1245 [facility] Comment on above: Performed By: #### C MPX, CDP #### [facility] [address] [place], [place] [id number] Management Accounts Manager: Khadar Tang MD Folic Acid 8.2 ng/mL Normal >4.8 [facility] Comment on above: Performed By: #### C MPX, CDP #### [facility] [address] [place], [place] [id number] Management Accounts Manager: Khadar Tang MD CBC auto differentialon 05-28 Absolute Eos # 0.46 High [facility] Absolute Immature Granulocyte 0.07 [facility] Absolute Lymph # 1.52 [facility] Absolute Yates # 0.[address] [facility] Basophils (Bld) [#/Vol] 0.00 10*3/uL [facility] [...] 2.82 10*6/uL Low 4.21 - 5.77 m/uL [facility] Segmented neutrophils/100 WBC (Bld) 61 % 36 - 65 % [facility] Segs Absolute 4.02 [facility] WBC (Bld) [#/Vol] 6.6 10*3/uL [facility] CBC with Diffon 06-24-2022 Abs. Basophil 0.00 k/uL Normal 0.0-0.2 [facility] Comment on above: Performed By: #### C MPX, CDP #### [facility] [address] [place], [place] [address] Management Accounts Manager: Khadar Tang MD Abs.Imm.Granulocyte 0.07 k/uL Normal 0.00-0.30 [facility] Comment on above: Performed By: #### C MPX, CDP #### [facility] [address] [place], [place] [address] Management Accounts Manager: Khadar Tang MD Abs.Neutrophil (Seg) 4.02 k/uL Normal 1.50-8.10 [facility] Comment on above: Performed By: #### C MPX, CDP #### [facility] [address] [place], [place] [id number] Management Accounts Manager: Khadar Tang MD Eosinophils (Bld) [#/Vol] 0.46 10*3/uL High 0.00-0.44 [facility] Comment on above: Performed By: #### C MPX, CDP #### [facility] [address] [place], [place] [id number] Management Accounts Manager: Khadar Tang MD Lymphocytes (Bld) [#/Vol] 1.52 10*3/uL Normal 1.10-3.70 [facility] Comment on above: Performed By: #### C MPX, CDP #### [address] [place], [facility]83 Management Accounts Manager: Khadar Tang MD Monocytes (Bld) [#/Vol] 0.53 10*3/uL Normal 0.10-1.20 [facility] Comment on above: Performed By: #### C MPX, CDP #### [address] [place], [place] [address] Management Accounts Manager: Khadar Tang MD Morphology Álvaro (Bld) [Interp] HYPOCHROMIA Normal [facility] Comment on above: Result Comment: PRES ENT Performed By: #### C MPX, CDP #### [address] [place], [facility]83 Management Accounts Manager: Khadar Tang MD Neutrophil (Seg) 61 % Normal 36-65 [facility] Comment on above: Performed By: #### C MPX, CDP #### [address] [place], [facility]83 Management Accounts Manager: Khadar Tang MD Erythrocyte distribution width (RBC) [Ratio] 16.2 % High 11.8-14.4 [facility] Comment on above: Performed By: #### C MPX, CDP #### [address] [place] [facility]83 Management Accounts Manager: Khadar Tang MD Hematocrit (Bld) [Volume fraction] 21.7 % Low 40.7-50.3 [facility] Comment on above: Performed By: #### C MPX, CDP #### [facility] [address] [place], [facility]83 Management Accounts Manager: Khadar Tang MD Hemoglobin (Bld) [Mass/Vol] 6.6 g/dL Critically low 13.0-17.0 [facility] Comment on above: Performed By: #### C MPX, CDP #### [address] [place], [facility]83 Management Accounts Manager: Khadar Tang MD MCH (RBC) [Entitic mass] 23.4 pg Low 25.2-33.5 [facility] Comment on above: Performed By: #### C MPX, CDP #### [address] [place], [facility]83 Management Accounts Manager: Khadar Tang MD MCHC (RBC) [Mass/Vol] 30.4 g/dL Normal 28.4-34.8 [facility] Comment on above: Performed By: #### C MPX, CDP #### [address] [place], [facility]83 Management Accounts Manager: Khadar Tang MD MCV (RBC) [Entitic vol] 77.0 fL Low 82.6-102.9 [facility] Comment on above: Performed By: #### C MPX, CDP #### [address] [place] [address] Management Accounts Manager: Khadar Tang MD NRBC Automated 0.0 per 100 WBC Normal 0.0 [facility] Comment on above: Performed By: #### C MPX, CDP #### [facility] [address] [place], [place] [address] Management Accounts Manager: Khadar Tang MD Platelet mean volume (Bld) [Entitic vol] 8.9 fL Normal 8.1-13.5 [facility] Comment on above: Performed By: #### C MPX, CDP #### [facility] [address] [place], [place] [id number] Management Accounts Manager: Khadar Tang MD Platelets (Bld) [#/Vol] 208 10*3/uL Normal 138-453 [facility] Comment on above: Performed By: #### C MPX, CDP #### [facility] [address] [place], [place] [id number] Management Accounts Manager: Khadar Tang MD RBC (Bld) [#/Vol] 2.82 10*6/uL Low 4.21-5.77 [facility] Comment on above: Performed By: #### C MPX, CDP #### [address] [place], [place] [id number] Management Accounts Manager: Khadar Tang MD WBC (Bld) [#/Vol] 6.6 10*3/uL Normal 3.5-11.3 [facility] Comment on above: Performed By: #### C MPX, CDP #### [address] [place], [place] [address]82183 Management Accounts Manager: Khadar Tang MD Basophils/100 WBC (Bld) 0 % Normal 0-2 [facility] Comment on above: Performed By: #### C MPX, CDP #### [address] [place], [place] [address]83 Management Accounts Manager: Khadar Tang MD Eosinophils/100 WBC (Bld) 7 % High 1-4 [facility] Comment on above: Performed By: #### C MPX, CDP #### [facility] [address] [place], [place] [id number] Management Accounts Manager: Khadar Tang MD Immature granulocytes/100 WBC (Bld) 1 % High 0 [facility] Comment on above: Performed By: #### C MPX, CDP #### [facility] [address] [place], [place] [id number] Management Accounts Manager: Khadar Tang MD Lymphocytes/100 WBC (Bld) 23 % Low 24-43 [facility] Comment on above: Performed By: #### C MPX, CDP #### [facility] [address] [place], [place] [address]283 Management Accounts Manager: Khadar Tang MD Monocytes/100 WBC (Bld) 8 % Normal 3-12 [facility] Comment on above: Performed By: #### C MPX, CDP #### [address] [place], [place] [address]34183 Management Accounts Manager: Khadar Tang MD Comp Metabolic Pr/rfx MGon 0 06-24-2022 Albumin [Mass/Vol] 2.4 g/dL Low 3.5-5.2 [facility] Comment on above: Performed By: #### C MPX, CDP #### [address] [place] [address] Management Accounts Manager: Khadar Tang MD Albumin/Glob Ratio 0.6 Low 1.0-2.5 [facility] Comment on above: Performed By: #### C MPX, CDP #### [facility] [address] [place], [place] [address]83 Management Accounts Manager: Khadar Tang MD Alkaline Phos 75 U/L Normal 40-129 [facility] Comment on above: Performed By: #### C MPX, CDP #### [facility] [address] [place], [place] [address] Management Accounts Manager: Khadar Tang MD ALT [Catalytic activity/Vol] 9 U/L Normal 5-41 [facility] Comment on above: Performed By: #### C MPX, CDP #### [facility] [address] [place], [place] 3016783 Management Accounts Manager: Khadar Tang MD Anion gap [Moles/Vol] 7 mmol/L Low 9-17 [facility] Comment on above: Performed By: #### C MPX, CDP #### [facility] [address] [place], [place] 8634783 Management Accounts Manager: Khadar Tang MD AST [Catalytic activity/Vol] 11 U/L Normal <40 [facility] Comment on above: Performed By: #### C MPX, CDP #### [facility] [address] [place], [place] [id number] Management Accounts Manager: Khadar Tang MD Bilirubin [Mass/Vol] mg/dL Low 0.3-1.2 [facility] Comment on above: Performed By: #### C MPX, CDP #### [facility] [address] [place], [place] 3577583 Management Accounts Manager: Khadar Tang MD BUN/CRE Ratio 23 High 9-20 [facility] Comment on above: Performed By: #### C MPX, CDP #### [facility] [address] [place], [place] 6125383 Management Accounts Manager: Khadar Tang MD Calcium [Mass/Vol] 8.5 mg/dL Low 8.6-10.4 [facility] Comment on above: Performed By: #### C MPX, CDP #### [facility] [address] [place], [place] [address]83 Management Accounts Manager: Khadar Tang MD Chloride [Moles/Vol] 115 mmol/L High 98-107 [facility] Comment on above: Performed By: #### C MPX, CDP #### [facility] [address] [place], [place] [address]76[address]83 Management Accounts Manager: Khadar Tang MD CO2 [Moles/Vol] 18 mmol/L Low 20-31 [facility] Comment on above: Performed By: #### C MPX, CDP #### [facility] [address] [place], [place] [address] Management Accounts Manager: Khadar Tang MD Creatinine [Mass/Vol] 1.11 mg/dL Normal 0.70-1.20 [facility] Comment on above: Performed By: #### C MPX, CDP #### [facility] [address] [place], [place] [address] Management Accounts Manager: Khadar Tang MD GFR/1.73 sq M.predicted among non-blacks MDRD (S/P/Bld) [Vol rate/Area] mL/min/{1.73_m2} Normal >60 [facility] Comment on [...] #### C MPX, CDP #### [facility] [address] [place], [place] [address] Management Accounts Manager: Khadar Tang MD Glucose [Mass/Vol] 137 mg/dL High 70-99 [facility] Comment on above: Performed By: #### C MPX, CDP #### [facility] [address] [place], [place] [address] Management Accounts Manager: Khadar Tang MD Potassium [Moles/Vol] 4.9 mmol/L Normal 3.7-5.3 [facility] Comment on above: Performed By: #### C MPX, CDP #### [facility] [address] [place] [address] Management Accounts Manager: Khadar Tang MD Protein [Mass/Vol] 6.3 g/dL Low 6.4-8.3 [facility] Comment on above: Performed By: #### C MPX, CDP #### [facility] [address] [place] [address] Management Accounts Manager: Khadar Tang MD Sodium [Moles/Vol] 140 mmol/L Normal 135-144 [facility] Comment on above: Performed By: #### C MPX, CDP #### [facility] [address] [place], [place] [address] Management Accounts Manager: Khadar Tang MD Urea nitrogen [Mass/Vol] 26 mg/dL High 8-23 [facility] Comment on above: Performed By: #### C MPX, CDP #### [facility] [address] [place], [place] [address] Management Accounts Manager: Khadar Tang MD Comprehensive Metabolic Pane l [...] CENTER Bilirubin [Mass/Vol] mg/dL Low 0.3 - 1 .2 mg/dL [facility] Calcium [Mass/Vol] 8.5 mg/dL Low 8.6 - 10. 4 mg/dL [facility] Chloride [Moles/Vol] 115 mmol/L High 98 - 10 7 mmol/L [facility] CO2 [Moles/Vol] 18 mmol/L Low 20 - 31 mmol/L [facility] Creatinine [Mass/Vol] 1.11 mg/dL 0.70 - 1.20 mg/dL [facility] [employer] GFR/1.73 sq M.predicted MDRD (S/P/Bld) [Vol rate/Area] - PINF [email or web address] Comment on above: These results are [...] 137 mg/dL High 70 - 99 mg/dL [email or web address] [employer] Interpretation and review of laboratory results Abnormal [facility] Potassium [Moles/Vol] 4.9 mmol/L 3.7 - 5.3 mmol/L [email or web address] [employer] Protein [Mass/Vol] 6.3 g/dL Low 6.4 - 8.3 g/dL [email or web address] Sodium [Moles/Vol] 140 mmol/L 135 - 144 mmol/L [facility] Urea nitrogen [Mass/Vol] 26 mg/dL High 8 - 23 mg/dL [facility] [employer] Urea nitrogen/Creatinine (Bld) [Mass ratio] 23 High 9 - 20 [facility] Culture, Wound Aerobic Onlyo n 06-24-2022 Interpretation and review of laboratory results Abnormal [email or web address] Microorganism identified Cx Nom (Unsp spec) NORMAL SKIN ROBBIE [facility] Microorganism or agent identified Nom (Unsp spec) FEW NEUTROPHILS Abnormal [facility] Specimen Description .BUTTOCK [facility]GEN[facility] EKG 12 Leadon 06-24-2022 Atrial Rate 64 BPM [facility] [employer] Work Phone: P [place] 51 degrees [facility] Work Phone: P-R Interval 174 ms [facility] [employer] Work Phone: Q-T Interval 394 ms Fresh ! [facility] [employer] Work Phone: QRS Duration 94 ms Fresh ! [facility] Work Phone: QTc Calculation (Bazett) 406 ms RAIN [employer] Work Phone: R [place] 20 degrees RAIN [employer] Work Phone: T [place] 22 degrees [employer] Work Phone: Ventricular Rate 64 BPM RAIN WILLIAM [employer] Work Phone: Normal sinus rhythm Inferior infarct , age undetermined Abnormal ECG When compared with ECG of 22-JUN-2022 17:28, Minimal criteria for Inferior infarct is now Present Confirmed by Michelle Noe MD ([id number]) on 06/24/2022 10:31:37 PM [facility] Michelle Noe MD - 06/24/2022 Normal sinus rhythm Inferior infarct , age undetermined Abnormal ECG When compared with ECG of 22-JUN-2022 17:28, Minimal criteria for Inferior infarct is now Present Confirmed by Michelle Noe MD ([id number]) on 06/24/2022 10:31:37 PM [facility] Work Phone: [employer] Work Phone: EKG Rhythm Stripon 3 [facility] Echocardiogram complete 2D w ith doppler with coloron 06-24-2022 Left ventricular Ejection fraction 60 [facility] [employer] Work Phone: LVEF MODALITY ECHO [facility] Work Phone: [facility] Transthoracic Echocardiography Report (TTE) Patient Name ALLOWAY Date of Study 06/24/2022 GANGA Evans Date of 1960 Gender Male Age 61 year(s) Race Room Number 0334 Height: 71 inch, 180.34 cm Corporate ID [id number] Weight: 252 pounds, 114.3 kg # Patient Acct [id number] BSA: 2.33 m^2 BMI: 35.15 kg/m^2 # MR # [id number] [facility] Coach Jeanette Clarke Interpreting Physician Michelle Noe Fellow Referring Nurse Shelly Mondragon, Practitioner DOLLY Interpreting Referring Physician Fellow Type of Study TTE procedure:2D Echocardiogram, M-Mode, Doppler, Color Doppler. Procedure Date Date: 06/24/2022 Start: 09:47 AM Study Location: [facility] Indications:Abnormal ECG. History / Tech. [...] MD / Result, Unknown Provider - 06/24/2022 [facility] Transthoracic Echocardiography Report (TTE) Patient Name ALLOWAY Date of Study 06/24/2022 GANGA Evans Date of 1960 Gender Male Age 61 year(s) Race Room Number 0334 Height: 71 inch, 180.34 cm Corporate ID [id number] Weight: 252 pounds, 114.3 kg # Patient Acct [id number] BSA: 2.33 m^2 BMI: 35.15 kg/m^2 # MR # [id number] Wellness Health Coach Jeanette Clarke Interpreting Physician Michelle Noe Fellow Referring Nurse Shelly Mondragon, Practitioner [employer] Interpreting Referring Physician Fellow Type of Study TTE procedure:2D Echocardiogram, M-Mode, Doppler, Color Doppler. Procedure Date Date: 06/24/2022 Start: 09:47 AM Study Location: [facility] Indications:Abnormal ECG. History / Tech. [...] Interpretation and review of laboratory results Abnormal [facility] Hemoglobin and Hematocriton 06-24-2022 Hematocrit (Bld) [Volume fraction] 25.1 % Low 40.7 - 50.3 % [facility] Hemoglobin (Bld) [Mass/Vol] 7.8 g/dL Low 13.0 - 17.0 g/dL [facility] Interpretation and review of laboratory results Abnormal [facility] Hgb/Hcton 06-24-2022 Hematocrit (Bld) [Volume fraction] 25.1 % Low 40.7-50.3 [facility] Comment on above: Performed By: #### C FIFI, CDP #### [facility] [address] [place] [address] Management Accounts Manager: Khadar Tang MD Hemoglobin (Bld) [Mass/Vol] 7.8 g/dL Low 13.0-17.0 [facility] Comment on above: Performed By: #### C MPX, CDP #### [facility] [address] [place], [place] [id number] Management Accounts Manager: hKadar Tang MD Iron Binding Cap.on 06-25-19 23 % Fe Saturation 19 % Low 20-55 [facility] Comment on above: Performed By: #### C MPX, CDP #### [facility] [address] [place], [place] [id number] Management Accounts Manager: Khadar Tang MD Iron [Mass/Vol] 33 ug/dL Low 59-158 [facility] Comment on above: Performed By: #### C MPX, CDP #### [facility] [address] [place], [place] [id number] Management Accounts Manager: Khadar Tang MD Total Fe Binding Cap 175 ug/dL Low 250-450 [facility] Comment on above: Performed By: #### C MPX, CDP #### [address] [place], [place] [id number] Management Accounts Manager: Khadar Tang MD Unbound Fe Bind Cap 142 ug/dL Normal 112-347 [facility] Comment on above: Performed By: #### C MPX, CDP #### [facility] [address] [place], [place] [id number] Management Accounts Manager: Khadar Tang MD Iron and TIBCon 06-24-2022 Interpretation and review of laboratory results Abnormal [facility] Iron [Mass/Vol] 33 ug/dL Low 59 - 158 ug/dL [facility] Iron binding capacity [Mass/Vol] 175 ug/dL Low 250 - 450 ug/dL [facility] Iron Saturation 19 % Low 20 - 55 % [facility] UIBC 142 ug/dL 112 - 347 ug/dL [facility] Laboratory - Microbiology an d Antimicrobial [...] 06-24-2022 Cholesterol [Mass/Vol] 147 mg/dL Normal <200 [facility] Comment on above: Result Comment: Cholesterol Guidelines: <200 Desirable 200-240 Borderline >240 Undesirable Performed By: #### T BRENDA #### [facility] [address] [place] [address] Management Accounts Manager: Khadar Tang MD Cholesterol in HDL [Mass/Vol] 28 mg/dL Low >40 [facility] Comment on above: Result Comment: HDL Guidelines: <40 Undesirable 40-59 Borderline >59 Desirable Performed By: #### T CINDYI #### [facility] [address] [place] [address] Management Accounts Manager: Khadar Tang MD Cholesterol in LDL [Mass/Vol] 98 mg/dL Normal 0-130 [facility] Comment on above: Result Comment: LDL Guidelines: <100 Desirable 100-129 Near to/above Desirable 130-159 Borderline >159 Undesirable Direct (measured) LDL and calculated LDL are not interchangeable tests. Performed By: #### T BRENDA #### [facility] [address] [place] [address] Management Accounts Manager: Khadar Tang MD Cholesterol.total/Cho lesterol in HDL [Mass ratio] 5.3 {ratio} High <5 [facility] Comment on above: Performed By: #### T CINDYI #### [facility] [address] [place], [facility]83 Management Accounts Manager: Khadar Tang MD Triglyceride [Mass/Vol] 107 mg/dL Normal <150 [facility] Comment on above: Result Comment: Triglyceride Guidelines: <150 Desirable 150-199 Borderline 200-499 High >499 Very high Based on AHA Guidelines for fasting triglyceride, December 2011. Performed By: #### T BRENDA #### [facility] [address] [place], [facility]83 Management Accounts Manager: Khadar Tang MD PTon 06-24-2022 INR Coag (PPP) [Relative time] 1.1 {INR} Normal [facility] Comment on above: Result Comment: Therapeutic Range: Moderate Anticoagulant Intensity: INR = 2.0-3.0 High Anticoagulant Intensity: INR = 2.5-3.5 Performed By: #### C FIFI, CDP #### [address] [place], [facility]83 Management Accounts Manager: Khadar Tang MD PT Coag (PPP) [Time] 14.8 s Normal 11.9-14.8 [facility] Comment on above: Performed By: #### C FIFI, CDP #### [address] [place] [address] Management Accounts Manager: Khadar Tang MD PTTon 06-24-2022 aPTT Coag (Bld) [Time] 35.6 s High [facility] Comment on above: IV Heparin Therapy Range: 62.0-94.0 Interpretation and review of laboratory results Abnormal [facility] Protime-INRon 06-24-2022 INR Coag (PPP) [Relative time] 1.1 {INR} [facility] Comment on above: Therapeutic Range: Moderate Anticoagulant Intensity: INR = 2.0-3.0 High Anticoagulant Intensity: INR = 2.5-3.5 PT Coag (PPP) [Time] 14.8 s [facility] Troponinon 06-24-2022 Troponin, High Sens 57 ng/L Critically high 0-22 [facility] Comment on above: Result Comment: High Sensitivity Troponin values cannot be compared with other Troponin methodologies. Performed By: #### C MPX, CDP #### [facility] [address] [place] [address] [place] [address] Management Accounts Manager: Khadar Tang MD Interpretation and review of laboratory results Abnormal [facility] Troponin I.cardiac DL <= 0.01 ng/mL [Mass/Vol] 57 ng/L Critically high 0 - 22 ng/L [facility] Comment on above: High Sensitivity Tro ponin values cannot be compared with other Troponin methodologies. [facility] Troponin, High Sens 58 ng/L Critically high 0-22 [facility] Comment on above: Result Comment: High Sensitivity Troponin values cannot be compared with other Troponin methodologies. Performed By: #### T ROPI #### [facility] [address] [place] [address] Management Accounts Manager: Khadar Tang MD Interpretation and review of laboratory results Abnormal [facility] Troponin I.cardiac DL <= 0.01 ng/mL [Mass/Vol] 58 ng/L Critically high 0 - 22 ng/L [facility] Comment on above: High Sensitivity Tro ponin values cannot be compared with other Troponin methodologies. [facility] Troponin, High Sens 59 ng/L Critically high 0-22 [facility] Comment on above: Result Comment: High Sensitivity Troponin values cannot be compared with other Troponin methodologies. Performed By: #### C MPX, CDP #### [facility] [address] [place] [address] Management Accounts Manager: Khadar Tang MD Interpretation and review of [...] Screen Sample Expiration 06/27/2022,2359 Arm Band Number [id number] ABO/Rh(D) A NEGATIVE Antibody Screen NEGATIVE Unit Number [id number] Blood Component Type Leukocyte Reduced Red Cell Unit Division 00 Status of Unit TRANSFUSED Transfusion Status OK TO TRANSFUSE Crossmatch Result COMPATIBLE Normal [facility] Comment on above: Performed By: #### C MARGARITO CALIX #### [facility] [address] [place] [address] Management Accounts Manager: Khadar Tang MD Vitamin B12 & Folateon 06-24 Cobalamin (Vitamin B12) [Mass/Vol] 446 pg/mL 232 - 1245 pg/mL [facility] Folate [Mass/Vol] 8.2 ng/mL 4.8 - PINF ng/mL [facility] CBC auto differentialon 05-28 Absolute Eos # 0.65 High [facility] Absolute Immature Granulocyte 0.06 [facility] Absolute Lymph # 1.94 [facility] Absolute Yates # 0.[address] [facility] Basophils (Bld) [#/Vol] 0.04 10*3/uL [facility] 3.22 10*6/uL Low 4.21 - 5.77 m/uL [facility] Segmented neutrophils/100 WBC (Bld) 62 % 36 - 65 % [facility] Segs Absolute 5.55 [facility] WBC (Bld) [#/Vol] 9.0 10*3/uL [facility] CBC with Diffon 06-23-2022 Abs. Basophil 0.04 k/uL Normal 0.00-0.20 [facility] Comment on above: Performed By: #### C FIFI, CDP #### [facility] [address] [place], [place] [address] Management Accounts Manager: Khadar Tang MD Abs.Imm.Granulocyte 0.06 k/uL Normal 0.00-0.30 [facility] Comment on above: Performed By: #### C FIFI, CDP #### [facility] [address] [place] [address] [place] [place], [place] [id number] Management Accounts Manager: Khadar Tang MD Abs.Neutrophil (Seg) 5.55 k/uL Normal 1.50-8.10 [facility] Comment on above: Performed By: #### C MPX, CDP #### [address] [place], [place] [id number] Management Accounts Manager: Khadar Tang MD Basophils/100 WBC (Bld) 0 % Normal 0-2 [facility] Comment on above: Performed By: #### C MPX, CDP #### [address] [place], [place] [address] Management Accounts Manager: Khadar Tang MD Eosinophils (Bld) [#/Vol] 0.65 10*3/uL High 0.00-0.44 [facility] Comment on above: Performed By: #### C MPX, CDP #### [address] [place], [facility]83 Management Accounts Manager: Khadar Tang MD Eosinophils/100 WBC (Bld) 7 % High 1-4 [facility] Comment on above: Performed By: #### C MPX, CDP #### [address] [place], [facility]83 Management Accounts Manager: Khadar Tang MD Erythrocyte distribution width (RBC) [Ratio] 16.4 % High 11.8-14.4 [facility] Comment on above: Performed By: #### C MPX, CDP #### [address] [place], [place] [id number] Management Accounts Manager: Khadar Tang MD Hematocrit (Bld) [Volume fraction] 25.0 % Low 40.7-50.3 [facility] Comment on above: Performed By: #### C MPX, CDP #### [address] [place], [facility]83 Management Accounts Manager: Khadar Tang MD Hemoglobin (Bld) [Mass/Vol] 7.5 g/dL Low 13.0-17.0 [facility] Comment on above: Performed By: #### C MPX, CDP #### [facility] [address] [place] [address] Management Accounts Manager: Khadar Tang MD Immature granulocytes/100 WBC (Bld) 1 % High 0 [facility] Comment on above: Performed By: #### C MPX, CDP #### [facility] [address] [place], [place] [id number] Management Accounts Manager: Khadar Tang MD Lymphocytes (Bld) [#/Vol] 1.94 10*3/uL Normal 1.10-3.70 [facility] Comment on above: Performed By: #### C MPX, CDP #### [address] [place], [place] [id number] Management Accounts Manager: Khadar Tang MD Lymphocytes/100 WBC (Bld) 22 % Low 24-43 [facility] Comment on above: Performed By: #### C MPX, CDP #### [address] [place], [place] 8503683 Management Accounts Manager: Khadar Tang MD MCH (RBC) [Entitic mass] 23.3 pg Low 25.2-33.5 [facility] Comment on above: Performed By: #### C MPX, CDP #### [facility] [address] [place] [address] [place], [place] [id number] Management Accounts Manager: Khadar Tang MD MCHC (RBC) [Mass/Vol] 30.0 g/dL Normal 28.4-34.8 [facility] Comment on above: Performed By: #### C MPX, CDP #### [facility] [address] [place] [address] [place], [place] [address] Management Accounts Manager: Khadar Tang MD MCV (RBC) [Entitic vol] 77.6 fL Low 82.6-102.9 [facility] Comment on above: Performed By: #### C MPX, CDP #### [facility] [address] [place] [address] Management Accounts Manager: Khadar Tang MD Monocytes (Bld) [#/Vol] 0.72 10*3/uL Normal 0.10-1.20 [facility] Comment on above: Performed By: #### C MPX, CDP #### [facility] [address] [place], [place] 0022583 Management Accounts Manager: Khadar Tang MD Monocytes/100 WBC (Bld) 8 % Normal 3-12 [facility] Comment on above: Performed By: #### C MPX, CDP #### [facility] [address] [place], [place] 9137783 Management Accounts Manager: Khadar Tang MD Neutrophil (Seg) 62 % Normal 36-65 [facility] Comment on above: Performed By: #### C MPX, CDP #### [facility] [address] [place], [place] [id number] Management Accounts Manager: Kahdar Tang MD NRBC Automated 0.0 per 100 WBC Normal 0.0 [facility] Comment on above: Performed By: #### C MPX, CDP #### [facility] [address] [place] [address] [place], [place] [id number] Management Accounts Manager: Khadar Tang MD Platelet mean volume (Bld) [Entitic vol] 8.7 fL Normal 8.1-13.5 [facility] Comment on above: Performed By: #### C MPX, CDP #### [facility] [address] [place] [address] Management Accounts Manager: Khadar Tang MD Platelets (Bld) [#/Vol] 263 10*3/uL Normal 138-453 [facility] Comment on above: Performed By: #### C MPX, CDP #### [facility] [address] [place], [place] [id number] Management Accounts Manager: Khadar Tang MD RBC (Bld) [#/Vol] 3.22 10*6/uL Low 4.21-5.77 [facility] Comment on above: Performed By: #### C MPX, CDP #### [facility] [address] [place], [place] 4897983 Management Accounts Manager: Khadar Tang MD WBC (Bld) [#/Vol] 9.0 10*3/uL Normal 3.5-11.3 [facility] Comment on above: Performed By: #### C MPX, CDP #### [address] [place] [address] Management Accounts Manager: Khadar Tang MD Comp Metabolic Pr/rfx MGon 0 - Albumin [Mass/Vol] 2.9 g/dL Low 3.5-5.2 [facility] Comment on above: Performed By: #### C MPX, CDP #### [facility] [address] [place] [address] [place]. [place], [place] 8395783 Management Accounts Manager: Khadar Tang MD Albumin/Glob Ratio 0.7 Low 1.0-2.5 [facility] Comment on above: Performed By: #### C MPX, CDP #### [facility] [address] [place], [place] [id number] Management Accounts Manager: Khadar Tang MD Alkaline Phos 89 U/L Normal 40-129 [facility] Comment on above: Performed By: #### C MPX, CDP #### [facility] [address] [place] [address] Management Accounts Manager: Khadar Tang MD ALT [Catalytic activity/Vol] 11 U/L Normal 5-41 [facility] Comment on above: Performed By: #### C MPX, CDP #### [facility] [address] [place], [place] [id number] Management Accounts Manager: Khadar Tang MD Anion gap [Moles/Vol] 8 mmol/L Low 9-17 [facility] Comment on above: Performed By: #### C MPX, CDP #### [facility] [address] [place], [place] 5762583 Management Accounts Manager: Khadar Tang MD AST [Catalytic activity/Vol] 12 U/L Normal <40 [facility] Comment on above: Performed By: #### C MPX, CDP #### [facility] [address] [place], [place] 7261383 Management Accounts Manager: Khadar Tang MD Bilirubin [Mass/Vol] 0.2 mg/dL Low 0.3-1.2 [facility] Comment on above: Performed By: #### C MPX, CDP #### [facility] [address] [place], [place] 1333783 Management Accounts Manager: Khadar Tang MD BUN/CRE Ratio 25 High 9-20 [facility] Comment on above: Performed By: #### C MPX, CDP #### [facility] [address] [place] [address] [place]. [place], [place] [id number] Management Accounts Manager: Khadar Tang MD Calcium [Mass/Vol] 9.0 mg/dL Normal 8.6-10.4 [facility] Comment on above: Performed By: #### C MPX, CDP #### [facility] [address] [place], [place] 6109883 Management Accounts Manager: Khadar Tang MD Chloride [Moles/Vol] 115 mmol/L High 98-107 [facility] Comment on above: Performed By: #### C MPX, CDP #### [facility] [address] [place], [place] 8030183 Management Accounts Manager: Khadar Tang MD CO2 [Moles/Vol] 17 mmol/L Low 20-31 [facility] Comment on above: Performed By: #### C MPX, CDP #### [facility] [address] [place] [address] Management Accounts Manager: Khadar Tang MD Creatinine [Mass/Vol] 1.55 mg/dL High 0.70-1.20 [facility] Comment on above: Performed By: #### C MPX, CDP #### [facility] [address] [place], [place] [address] Management Accounts Manager: Khadar Tang MD GFR/1.73 sq M.predicted among non-blacks MDRD (S/P/Bld) [Vol rate/Area] 51 mL/min/{1.73_m2} Low >60 [facility] Comment on [...] #### C MPX, CDP #### [facility] [address] [place] [address] Management Accounts Manager: Khadar Tang MD Glucose [Mass/Vol] 119 mg/dL High 70-99 [facility] Comment on above: Performed By: #### C MPX, CDP #### [facility] [address] [place] [address] Management Accounts Manager: Khadar Tang MD Potassium [Moles/Vol] 5.4 mmol/L High 3.7-5.3 [facility] Comment on above: Performed By: #### C MPX, CDP #### [facility] [address] [place] [address] Management Accounts Manager: Khadar Tang MD Protein [Mass/Vol] 7.1 g/dL Normal 6.4-8.3 [facility] Comment on above: Performed By: #### C MPX, CDP #### [facility] [address] [place] [address] Management Accounts Manager: Khadar Tang MD Sodium [Moles/Vol] 140 mmol/L Normal 135-144 [facility] Comment on above: Performed By: #### C MPX, CDP #### [facility] [address] [place] [address] Management Accounts Manager: Khadar Tang MD Urea nitrogen [Mass/Vol] 38 mg/dL High 8-23 [facility] Comment on above: Performed By: #### C MPX, CDP #### [facility] [address] [place], [place] [address] Management Accounts Manager: Khaadr Tang MD Comprehensive Metabolic Pane l w/ [...] mg/dL Low 0.3 - 1 .2 mg/dL [facility] Calcium [Mass/Vol] 9.0 mg/dL 8.6 - 10. 4 mg/dL [facility] Chloride [Moles/Vol] 115 mmol/L High 98 - 10 7 mmol/L [facility] CO2 [Moles/Vol] 17 mmol/L Low 20 - 31 mmol/L [facility] Creatinine [Mass/Vol] 1.55 mg/dL High 0.70 - 1.20 mg/dL [employer] GFR/1.73 sq M.predicted MDRD (S/P/Bld) [Vol rate/Area] 51 mL/min/{1.73_m2} Low - PINF [employer] Comment on above: These results are not [...] 119 mg/dL High 70 - 99 mg/dL [employer] Interpretation and review of laboratory results Abnormal [employer] Potassium [Moles/Vol] 5.4 mmol/L High 3.7 - 5.3 mmol/L [employer] Protein [Mass/Vol] 7.1 g/dL 6.4 - 8.3 g/dL [employer] Sodium [Moles/Vol] 140 mmol/L 135 - 144 mmol/L [employer] Urea nitrogen [Mass/Vol] 38 mg/dL High 8 - 23 mg/dL [employer] Urea nitrogen/Creatinine (Bld) [Mass ratio] 25 High 9 - 20 [employer] [facility] [employer] EKG 12 LeadOrdered By: Michelle de la rosa on 06-23-2022 Atrial Rate 60 BPM [employer] Work Phone: P [place] 55 degrees [employer] Work Phone: P-R Interval 182 ms [employer] Work Phone: Q-T Interval 388 ms [employer] Work Phone: QRS Duration 88 ms [employer] Work Phone: QTc Calculation (Bazett) 388 ms [employer] Work Phone: R [place] 15 degrees [employer] Work Phone: T [place] 40 degrees [facility] Work Phone: Ventricular Rate 60 BPM [facility] [employer] Work Phone: RAIN [facility] Work Phone: EKG 12 Leadon 06-23-2022 Poor data qualit y, interpretation may be adversely affected Normal sinus rhythm Normal ECG When compared with ECG of 22-JUN-2022 13:14, (unconfirmed) Borderline criteria for Anterolateral infarct are no longer Present Criteria for Inferior infarct are no longer Present T wave inversion no longer evident in Inferior leads Confirmed by Michelle Noe MD ([id number]) on 06/23/2022 3:18:16 PM [facility] Michelle Noe MD - 06/23/2022 Poor data quality, interpretation may be adversely affected Normal sinus rhythm Normal ECG When compared with ECG of 22-JUN-2022 13:14, (unconfirmed) Borderline criteria for Anterolateral infarct are no longer Present Criteria for Inferior infarct are no longer Present T wave inversion no longer evident in Inferior leads Confirmed by Michelle Noe MD ([id number]) on 06/23/2022 3:18:16 PM [facility] Work Phone: EKG Rhythm Stripon 3 [facility] Glucose, Whole Bloodon 06-23 Glucose [Mass/Vol] 230 mg/dL High 74 - 100 mg/dL [facility] Interpretation and review of laboratory results Abnormal [facility] Urinalysison 06-23-2022 Bilirubin Urine Negative NEGATIVE [facility] Color, UA Yellow Yellow [facility] Glucose Auto test strip (U) [Mass/Vol] Negative NEGATIVE [facility] Ketones (U) [Mass/Vol] Negative NEGATIVE [facility] Leukocyte esterase Auto test strip Ql (U) Negative NEGATIVE [facility] Nitrite Auto test strip Ql (U) Negative NEGATIVE [facility] Protein (U) [Mass/Vol] 6.0 mg/dL 5.0 - 9.0 [facility] Protein (U) [Mass/Vol] Negative NEGATIVE [facility] Specific [place], UA 1.020 1.010 - 1.020 [facility] Turbidity UA Clear Clear [facility] Urine Hgb Negative NEGATIVE [facility] Urobilinogen, Urine Normal Normal [facility] Urinalysis, Routineon 2022 Bilirubin, SemiQt,Ur Negative Normal NEG [facility] Comment on above: Performed By: #### U A #### [facility] [address] [place], [place] [address] Management Accounts Manager: Khadar Tang MD Blood, Urine Negative Normal NEG [facility] Comment on above: Performed By: #### U A #### [facility] [address] [place], [place] [address] Management Accounts Manager: Khadar Tang MD Clarity (U) Clear Normal CLEAR [facility] Comment on above: Performed By: #### U A #### [facility] [address] [place], [facility]83 Management Accounts Manager: Khadar Tang MD Color (U) Yellow Normal YEL [facility] Comment on above: Performed By: #### U A #### [facility] [address] [place], [facility]83 Management Accounts Manager: Khadar Tang MD Glucose Ql (U) Negative Normal NEG [facility] Comment on above: Performed By: #### U A #### [facility] [address] [place] [address] Management Accounts Manager: Khadar Tang MD Ketones Ql (U) Negative Normal NEG [facility] Comment on above: Performed By: #### U A #### [facility] [address] [place] [address] Management Accounts Manager: Khadar Tang MD Leukocyte esterase Test strip Ql (U) Negative Normal NEG [facility] Comment on above: Performed By: #### U A #### [facility] [address] [place] [address] [address]. [place], [place] [id number] Management Accounts Manager: Khadar Tang MD Nitrite,Ur Negative Normal NEG [facility] Comment on above: Performed By: #### U A #### [facility] [address] [place] [address] Dr. [place], [place] [id number] Management Accounts Manager: Khadar Tang MD PH,Ur 6.0 Normal 5.0-9.0 [facility] Comment on above: Performed By: #### U A #### [address] [place], [place] [id number] Management Accounts Manager: Khadar Tang MD Protein Ql (U) Negative Normal NEG [facility] Comment on above: Performed By: #### U A #### [address] [place], [place] [id number] Management Accounts Manager: Khadar Tang MD Spec. [place],Ur 1.020 Normal 1.010-1.02 0 [facility] Comment on above: Performed By: #### U A #### [address] [place], [place] [id number] Management Accounts Manager: Khadar Tang MD Urobilinogen,Ur Normal Normal NORM [facility] Comment on above: Performed By: #### U A #### [address] [place], [place] [id number] Management Accounts Manager: Khadar Tang MD XR ANKLE RIGHT (MIN [...] Derrick Squires MD 06/23/22 Final result Normal [facility] 1. Nonspecific diffu se subcutaneous edema. 2. Periostitis at the lateral aspect of the fibula distally. There was osteomyelitis in this region previously. This could reflect chronic osteomyelitis. Elsewhere, there is no subcutaneous air or evidence of osteomyelitis. [facility] EXAMINATION: THREE XRAY VIEWS OF THE [...] lesion is noted. Calcaneal spurring appears unchanged. [facility] Derrick Squires MD - 06/23/2022 EXAMINATION: [...] no subcutaneous air or evidence of osteomyelitis. [employer] Work Phone: Radiology Study observation (narrative) [employer] Phone: XR ANKLE RIGHT (MIN 3 VIEWS) Ordered By: Derrick Squires on 06-23-2022 [employer] Work Phone: Basic Metabolic Panelon 05-28 Anion gap [Moles/Vol] 9 mmol/L 9 - 17 mmol/L [employer] Calcium [Mass/Vol] 9.5 mg/dL 8.6 - 10. 4 mg/dL [employer] Chloride [Moles/Vol] 112 mmol/L High 98 - 10 7 mmol/L [employer] CO2 [Moles/Vol] 17 mmol/L Low 20 - 31 mmol/L [employer] Creatinine [Mass/Vol] 2 mg/dL High 0.70 - 1.20 mg/dL [employer] GFR/1.73 sq M.predicted MDRD (S/P/Bld) [Vol rate/Area] 38 mL/min/{1.73_m2} Low - PINF [employer] Comment on above: These results are not [...] 137 mg/dL High 70 - 99 mg/dL [employer] Interpretation and review of laboratory results Abnormal [employer] Potassium [Moles/Vol] 6.1 mmol/L Critically high 3.7 - 5.3 mmol/L [employer] Sodium [Moles/Vol] 138 mmol/L 135 - 144 mmol/L [employer] Urea nitrogen [Mass/Vol] 45 mg/dL High 8 - 23 mg/dL [employer] Urea nitrogen/Creatinine (Bld) [Mass ratio] 23 High 9 - 20 [employer] Basic Metabolic Profon 06-22 Potassium [Moles/Vol] 6.1 mmol/L Critically high 3.7-5.3 [facility] Comment on above: Performed By: #### T ROPI #### [facility] [address] [place], [place] [id number] Management Accounts Manager: Khadar Tang MD Anion gap [Moles/Vol] 9 mmol/L Normal 9-17 [facility] Comment on above: Performed By: #### T ROPI #### [facility] [address] [place], [place] [id number] Management Accounts Manager: Khadar Tagn MD BUN/CRE Ratio 23 High 9-20 [facility] Comment on above: Performed By: #### T ROPI #### [facility] [address] [place], [place] 6236983 Management Accounts Manager: Khadar Tang MD Calcium [Mass/Vol] 9.5 mg/dL Normal 8.6-10.4 [facility] Comment on above: Performed By: #### T ROPI #### [facility] [address] [place], [place] 9845083 Management Accounts Manager: Khadar Tang MD Chloride [Moles/Vol] 112 mmol/L High 98-107 [facility] Comment on above: Performed By: #### T ROPI #### [facility] [address] [place], [place] [id number] Management Accounts Manager: Khadar Tang MD CO2 [Moles/Vol] 17 mmol/L Low 20-31 [facility] Comment on above: Performed By: #### T ROPI #### [facility] [address] [place] [address] Management Accounts Manager: Khadar Tang MD Creatinine [Mass/Vol] 2.00 mg/dL High 0.70-1.20 [facility] Comment on above: Performed By: #### T ROPI #### [facility] [address] [place] [address] Management Accounts Manager: Khadar Tang MD GFR/1.73 sq M.predicted among non-blacks MDRD (S/P/Bld) [Vol rate/Area] 38 mL/min/{1.73_m2} Low >60 [facility] Comment on [...] By: #### T ROPI #### [facility] [address] [place] [address] Management Accounts Manager: Khadar Tang MD Glucose [Mass/Vol] 137 mg/dL High 70-99 [facility] Comment on above: Performed By: #### T ROPI #### [facility] [address] [place] [address] Management Accounts Manager: Khadar Tang MD Sodium [Moles/Vol] 138 mmol/L Normal 135-144 [facility] Comment on above: Performed By: #### T ROPI #### [facility] [address] [place], [place] [id number] Management Accounts Manager: Khadar Tang MD Urea nitrogen [Mass/Vol] 45 mg/dL High 8-23 [facility] Comment on above: Performed By: #### T ROPI #### [facility] [address] [place], [place] [address] Management Accounts Manager: Khadar Tang MD CBC with Auto Differentialon 06-22-2022 Absolute Eos # 0.86 High [facility] Absolute Immature Granulocyte 0.09 [facility] Absolute Lymph # 1.97 [facility] Absolute Yates # 0.88 [facility] Basophils (Bld) [#/Vol] 0.05 10*3/uL [place] 3.56 10*6/uL Low 4.21 - 5.77 m/uL [facility] Segmented neutrophils/100 WBC (Bld) 70 % High 36 - 65 % [facility] Segs Absolute 8.91 High [facility] WBC (Bld) [#/Vol] 12.8 10*3/uL High [facility] Eos # 0.84 High [facility] Absolute Immature Granulocyte 0.06 [facility] Absolute Lymph # 1.69 [facility] Absolute Yates # 0.82 [facility] Basophils (Bld) [#/Vol] 0.04 10*3/uL [place] [...] 3.44 10*6/uL Low 4.21 - 5.77 m/uL [facility] Segmented neutrophils/100 WBC (Bld) 71 % High 36 - 65 % [facility] Segs Absolute 9.06 High [facility] WBC (Bld) [#/Vol] 12.5 10*3/uL High [facility] CBC with Diffon 06-22-2022 Abs. Basophil 0.05 k/uL Normal 0.00-0.20 [facility] Comment on above: Performed By: #### C DP, MG, CP #### [facility] [address] [place] [address] Management Accounts Manager: Khadar Tang MD Abs.Imm.Granulocyte 0.09 k/uL Normal 0.00-0.30 [facility] Comment on above: Performed By: #### C DP, MG, CP #### [address] [place] [place] [address] Management Accounts Manager: Khadar Tang MD Abs.Neutrophil (Seg) 8.91 k/uL High 1.50-8.10 [facility] Comment on above: Performed By: #### C DP, MG, CP #### [facility] [address] [place] [address] [place] [address] Management Accounts Manager: Khadar Tang MD Basophils/100 WBC (Bld) 0 % Normal 0-2 [facility] Comment on above: Performed By: #### C DP, MG, CP #### [address] [place] [id number] Management Accounts Manager: Khadar Tang MD Eosinophils (Bld) [#/Vol] 0.86 10*3/uL High 0.00-0.44 [facility] Comment on above: Performed By: #### C DP, MG, CP #### [facility] [address] [place] [address] [place] [address] Management Accounts Manager: Khadar Tang MD Eosinophils/100 WBC (Bld) 7 % High 1-4 [facility] Comment on above: Performed By: #### C DP, MG, CP #### [address] [place] [place] [address] Management Accounts Manager: Khadar Tang MD Erythrocyte distribution width (RBC) [Ratio] 16.2 % High 11.8-14.4 [facility] Comment on above: Performed By: #### C DP, MG, CP #### [facility] [address] [place] [address] Management Accounts Manager: Khadar Tang MD Hematocrit (Bld) [Volume fraction] 27.6 % Low 40.7-50.3 [facility] Comment on above: Performed By: #### C DP, MG, CP #### [address] [place] [place] [address] Management Accounts Manager: Khadar Tang MD Hemoglobin (Bld) [Mass/Vol] 8.3 g/dL Low 13.0-17.0 [facility] Comment on above: Performed By: #### C DP, MG, CP #### [facility] [address] [place] [address] [place] [address] Management Accounts Manager: Khadar Tang MD Immature granulocytes/100 WBC (Bld) 1 % High 0 [facility] Comment on above: Performed By: #### C DP, MG, CP #### [address] [place] [place] [address] Management Accounts Manager: Khadar Tang MD Lymphocytes (Bld) [#/Vol] 1.97 10*3/uL Normal 1.10-3.70 [facility] Comment on above: Performed By: #### C DP, MG, CP #### [facility] [address] [place] [address] Dr. Suárez, [facility]83 Management Accounts Manager: Khadar Tang MD Lymphocytes/100 WBC (Bld) 15 % Low 24-43 [facility] Comment on above: Performed By: #### C DP, MG, CP #### [facility] [address] [place] [address] Dr. [place] [id number] Management Accounts Manager: Khadar Tang MD MCH (RBC) [Entitic mass] 23.3 pg Low 25.2-33.5 [facility] Comment on above: Performed By: #### C DP, MG, CP #### [address] [place], [place] [id number] Management Accounts Manager: Khadar Tang MD MCHC (RBC) [Mass/Vol] 30.1 g/dL Normal 28.4-34.8 [facility] Comment on above: Performed By: #### C DP, MG, CP #### [address] [place], [place] [id number] Management Accounts Manager: Khadar Tang MD MCV (RBC) [Entitic vol] 77.5 fL Low 82.6-102.9 [facility] Comment on above: Performed By: #### C DP, MG, CP #### [address] [place], [place] 1190583 Management Accounts Manager: Khadar Tang MD Monocytes (Bld) [#/Vol] 0.88 10*3/uL Normal 0.10-1.20 [facility] Comment on above: Performed By: #### C DP, MG, CP #### [address] [place], [place] 1356483 Management Accounts Manager: Khadar Tang MD Monocytes/100 WBC (Bld) 7 % Normal 3-12 [facility] Comment on above: Performed By: #### C DP, MG, CP #### [facility] [address] [place] [address] Dr. [place], [place] [id number] Management Accounts Manager: Khadar Tang MD Neutrophil (Seg) 70 % High 36-65 [facility] Comment on above: Performed By: #### C DP, MG, CP #### [facility] [address] [place] [address] Dr. [place], [place] [id number] Management Accounts Manager: Khadar Tang MD NRBC Automated 0.0 per 100 WBC Normal 0.0 [facility] Comment on above: Performed By: #### C DP, MG, CP #### [facility] [address] [place], [place] [address] Management Accounts Manager: Khadar Tang MD Platelet mean volume (Bld) [Entitic vol] 8.6 fL Normal 8.1-13.5 [facility] Comment on above: Performed By: #### C DP, MG, CP #### [facility] [address] [place], [place] [address] Management Accounts Manager: Khadar Tang MD Platelets (Bld) [#/Vol] 338 10*3/uL Normal 138-453 [facility] Comment on above: Performed By: #### C DP, MG, CP #### [address] [place] [place] [address] Management Accounts Manager: Khadar Tang MD RBC (Bld) [#/Vol] 3.56 10*6/uL Low 4.21-5.77 [facility] Comment on above: Performed By: #### C DP, MG, CP #### [address] [place] [place] [address] Management Accounts Manager: Khadar Tang MD WBC (Bld) [#/Vol] 12.8 10*3/uL High 3.5-11.3 [facility] Comment on above: Performed By: #### C DP, MG, CP #### [address] [place], [facility]83 Management Accounts Manager: Khadar Tang MD Abs. Basophil 0.04 k/uL Normal 0.00-0.20 [facility] Comment on above: Performed By: #### T ROPI #### [address] [place], [place] 8457783 Management Accounts Manager: Khadar Tang MD Abs.Imm.Granulocyte 0.06 k/uL Normal 0.00-0.30 [facility] Comment on above: Performed By: #### T ROPI #### [address] [place], [place] [address] Management Accounts Manager: Khadar Tang MD Abs.Neutrophil (Seg) 9.06 k/uL High 1.50-8.10 [facility] Comment on above: Performed By: #### T ROPI #### [address] [place], [place] [address] Management Accounts Manager: Khadar Tang MD Basophils/100 WBC (Bld) 0 % Normal 0-2 [facility] Comment on above: Performed By: #### T ROPI #### [address] [place] 7446783 Management Accounts Manager: Khadar Tang MD Eosinophils (Bld) [#/Vol] 0.84 10*3/uL High 0.00-0.44 [facility] Comment on above: Performed By: #### T ROPI #### [address] [place], [place] [address] Management Accounts Manager: Khadar Tang MD Eosinophils/100 WBC (Bld) 7 % High 1-4 [facility] Comment on above: Performed By: #### T ROPI #### [address] [place], [place] [address] Management Accounts Manager: Khadar Tang MD Erythrocyte distribution width (RBC) [Ratio] 16.4 % High 11.8-14.4 [facility] Comment on above: Performed By: #### T ROPI #### [address] [place] [place] [address] Management Accounts Manager: Khadar Tang MD Hematocrit (Bld) [Volume fraction] 27.1 % Low 40.7-50.3 [facility] Comment on above: Performed By: #### T ROPI #### [address] [place] 7446783 Management Accounts Manager: Khadar Tang MD Hemoglobin (Bld) [Mass/Vol] 8.7 g/dL Low 13.0-17.0 [facility] Comment on above: Performed By: #### T ROPI #### [facility] [address] [place] [address] Dr. [place], [place] [id number] Management Accounts Manager: Khadar Tang MD Immature granulocytes/100 WBC (Bld) 1 % High 0 [facility] Comment on above: Performed By: #### T ROPI #### [address] [place], [facility]83 Management Accounts Manager: Khadar Tang MD Lymphocytes (Bld) [#/Vol] 1.69 10*3/uL Normal 1.10-3.70 [facility] Comment on above: Performed By: #### T ROPI #### [address] [place], [facility]83 Management Accounts Manager: Khadar Tang MD Lymphocytes/100 WBC (Bld) 14 % Low 24-43 [facility] Comment on above: Performed By: #### T ROPI #### [address] [place], [facility]83 Management Accounts Manager: Khadar Tang MD MCH (RBC) [Entitic mass] 25.3 pg Normal 25.2-33.5 [facility] Comment on above: Performed By: #### T ROPI #### [address] [place], [facility]83 Management Accounts Manager: Khadar Tang MD MCHC (RBC) [Mass/Vol] 32.1 g/dL Normal 28.4-34.8 [facility] Comment on above: Performed By: #### T ROPI #### [address] [place], [place] 0150083 Management Accounts Manager: Khadar Tang MD MCV (RBC) [Entitic vol] 78.8 fL Low 82.6-102.9 [facility] Comment on above: Performed By: #### T ROPI #### [facility] [address] [place], [place] 9567583 Management Accounts Manager: Khadar Tang MD Monocytes (Bld) [#/Vol] 0.82 10*3/uL Normal 0.10-1.20 [facility] Comment on above: Performed By: #### T ROPI #### [facility] [address] [place], [place] 1011883 Management Accounts Manager: Khadar Tang MD Monocytes/100 WBC (Bld) 7 % Normal 3-12 [facility] Comment on above: Performed By: #### T ROPI #### [address] [place], [place] 1905583 Management Accounts Manager: Khadar Tang MD Neutrophil (Seg) 71 % High 36-65 [facility] Comment on above: Performed By: #### T ROPI #### [facility] [address] [place], [place] 6450483 Management Accounts Manager: Khadar Tang MD NRBC Automated 0.0 per 100 WBC Normal 0.0 [facility] Comment on above: Performed By: #### T ROPI #### [address] [place], [facility]83 Management Accounts Manager: Khadar Tang MD Platelet mean volume (Bld) [Entitic vol] 9.4 fL Normal 8.1-13.5 [facility] Comment on above: Performed By: #### T ROPI #### [address] [place], [place] [id number] Management Accounts Manager: Khadar Tang MD Platelets (Bld) [#/Vol] 345 10*3/uL Normal 138-453 [facility] Comment on above: Performed By: #### T ROPI #### [facility] [address] [place] [address] [place], [place] [address] Management Accounts Manager: Khadar Tang MD RBC (Bld) [#/Vol] 3.44 10*6/uL Low 4.21-5.77 [facility] Comment on above: Performed By: #### T ROPI #### [facility] [address] [place] [address] Management Accounts Manager: Khadar Tang MD WBC (Bld) [#/Vol] 12.5 10*3/uL High 3.5-11.3 [facility] Comment on above: Performed By: #### T CINDYI #### [facility] [address] [place] [address] Management Accounts Manager: Khadar Tang MD [facility] Albumin [Mass/Vol] 3.2 g/dL Low 3.5 [...] CENTER Bilirubin [Mass/Vol] mg/dL Low 0.3 - 1 .2 mg/dL [facility] Calcium [Mass/Vol] 9.1 mg/dL 8.6 - 10. 4 mg/dL [facility] Chloride [Moles/Vol] 110 mmol/L High 98 - 10 7 mmol/L [facility] CO2 [...] mg/dL [facility] Urea nitrogen/Creatinine (Bld) [Mass ratio] 25 High 9 - 20 [facility] Comp Metabolic Profon 2022 Bilirubin [Mass/Vol] mg/dL Low 0.3-1.2 [facility] Comment on above: Performed By: #### C DP, MG, CP #### [facility] [address] [place], [place] [address] Management Accounts Manager: Khadar Tang MD Potassium [Moles/Vol] 6.3 mmol/L Critically high 3.7-5.3 [facility] Comment on above: Performed By: #### C DP, MG, CP #### [facility] [address] [place], [place] [address] Management Accounts Manager: Khadar Tang MD Albumin [Mass/Vol] 3.2 g/dL Low 3.5-5.2 [facility] Comment on above: Performed By: #### C DP, MG, CP #### [facility] [address] [place], [place] [id number] Management Accounts Manager: Khadar Tang MD Albumin/Glob Ratio 0.7 Low 1.0-2.5 [facility] Comment on above: Performed By: #### C DP, MG, CP #### [facility] [address] [place], [place] [id number] Management Accounts Manager: Khadar Tang MD Alkaline Phos 101 U/L Normal 40-129 [facility] Comment on above: Performed By: #### C DP, MG, CP #### [facility] [address] [place], [place] 2894883 Management Accounts Manager: Khadar Tang MD ALT [Catalytic activity/Vol] 8 U/L Normal 5-41 [facility] Comment on above: Performed By: #### C DP, MG, CP #### [facility] [address] [place], [place] 8335583 Management Accounts Manager: Khadar Tang MD Anion gap [Moles/Vol] 11 mmol/L Normal 9-17 [facility] Comment on above: Performed By: #### C DP, MG, CP #### [facility] [address] [place], [place] 9513183 Management Accounts Manager: Khadar Tang MD AST [Catalytic activity/Vol] 13 U/L Normal <40 [facility] Comment on above: Performed By: #### C DP, MG, CP #### [facility] [address] [place], [place] 0592983 Management Accounts Manager: Khadar Tang MD BUN/CRE Ratio 25 High 9-20 [facility] Comment on above: Performed By: #### C DP, MG, CP #### [facility] [address] [place], [place] 2730483 Management Accounts Manager: Khadar Tang MD Calcium [Mass/Vol] 9.1 mg/dL Normal 8.6-10.4 [facility] Comment on above: Performed By: #### C DP, MG, CP #### [facility] [address] [place], [place] [address] Management Accounts Manager: Khadar Tang MD Chloride [Moles/Vol] 110 mmol/L High 98-107 [facility] Comment on above: Performed By: #### C DP, MG, CP #### [facility] [address] [place], [facility]83 Management Accounts Manager: Khadar Tang MD CO2 [Moles/Vol] 16 mmol/L Low 20-31 [facility] Comment on above: Performed By: #### C DP, MG, CP #### [facility] [address] [place], [facility]83 Management Accounts Manager: Khadar Tang MD Creatinine [Mass/Vol] 1.93 mg/dL High 0.70-1.20 [facility] Comment on above: Performed By: #### C DP, MG, CP #### [facility] [address] [place], [place] [address] Management Accounts Manager: Khadar Tang MD GFR/1.73 sq M.predicted among non-blacks MDRD (S/P/Bld) [Vol rate/Area] 39 mL/min/{1.73_m2} Low >60 [facility] Comment on [...] C DP, MG, CP #### [facility] [address] [place], [place] [address] Management Accounts Manager: Khadar Tang MD Glucose [Mass/Vol] 148 mg/dL High 70-99 [facility] Comment on above: Performed By: #### C DP, MG, CP #### [facility] [address] [place], [place] [address] Management Accounts Manager: Khadar Tang MD Protein [Mass/Vol] 8.1 g/dL Normal 6.4-8.3 [facility] Comment on above: Performed By: #### C DP, MG, CP #### [facility] [address] [place], [place] [id number] Management Accounts Manager: Khadar Tang MD Sodium [Moles/Vol] 137 mmol/L Normal 135-144 [facility] Comment on above: Performed By: #### C DP, MG, CP #### [facility] [address] [place], [place] [address] Management Accounts Manager: Khadar Tang MD Urea nitrogen [Mass/Vol] 49 mg/dL High 8-23 [facility] Comment on above: Performed By: #### C DP, MG, CP #### [facility] [address] [place], [place] [id number] Management Accounts Manager: Khadar Tang MD EKG 12 LeadOrdered By: Michelle Tellez hmdonovan on 06-22-2022 Atrial Rate 58 BPM [facility] [employer] [facility] Phone: P [place] 66 degrees [facility] [employer] [facility] Phone: P-R Interval 148 ms [email or web address] Phone: Q-T Interval 394 ms [employer] [facility] Phone: QRS Duration 94 ms [employer] [facility] Phone: QTc Calculation (Bazett) 386 ms [employer] [facility] Phone: R [place] 64 degrees [employer] [facility] Phone: T [place] -8 degrees [employer] [facility] Work Phone: Ventricular Rate 58 BPM [facility] [employer] Work Phone: [facility] Work Phone: EKG 12 Leadon 06-22-2022 Sinus bradycardia Inferior infarct , age undetermined Possible Anterolateral infarct , age undetermined Abnormal ECG When compared with ECG of 24-APR-2015 18:25, Vent. rate has decreased BY 39 BPM Borderline criteria for Anterolateral infarct are now Present T wave inversion now evident in Inferior leads QT has shortened Confirmed by Michelle Noe MD ([id number]) on 06/22/2022 10:09:31 PM [facility] Michelle Noe MD - 06/22/2022 [...] Noe MD ([id number]) on 06/22/2022 10:09:31 PM [facility] Work Phone: Magnesiumon 06-22-2022 Magnesium [Mass/Vol] 2.0 mg/dL Normal 1.6-2.6 [facility] Comment on above: Performed By: #### C DP, MG, CP #### [facility] [address] [place] [address] Management Accounts Manager: Khadar Tang MD Magnesium [Mass/Vol] 2.0 mg/dL 1.6 - 2 .6 mg/dL [facility] PELVIS WO CONon 2 CT [...] JESUSITA PAPPAS Date: 2022-03-14 09:50 Normal [facility] GLYCOHEMOGLOBIN A1Con 2021 ADA RECOMMENDATION ADA THERAPEUTIC TARG ET 6.0 - 7.0 ACTION SUGGESTED > 7.0 Normal [facility] Comment on above: Performed By: #### A 1C #### [facility] [address] [address] [address] Juan Smith Glucose [Mass/Vol] 180 mg/dL Normal [facility] Comment on above: Performed By: #### A 1C #### [facility] [address] [address] [address] Juan Smith HbA1c (Bld) [Mass fraction] 7.9 % Critically high <=6.0 [facility] Comment on above: Performed By: #### A 1C #### [facility] [address] [address] [address] Juan Smith Cult,Aerobe/Anaerobeon 04-15 Neutrophils Specimen Description .TISSUE RIGHT MEDIAL HEEL POST IRRIGATIONSpecial Requests NOT REPORTEDDirect Exam NO NEUTROPHILS SEEN NO BACTERIA SEEN Culture METHICILLIN RESISTANT STAPHYLOCOCCUS AUREUS SCANT GROWTH For susceptibility, refer to previous culture. STREPTOCOCCI, BETA HEMOLYTIC GROUP C SCANT GROWTH DIPHTHEROIDS SCANT GROWTH NO ANAEROBIC ORGANISMS ISOLATED AT 5 DAYS Report Status FINAL 04/15/2017 [facility] Comment on above: Performed By: #### A ANC ####[address] [address] Neutrophils Specimen Description .TISSUE RIGHT ANKLE PRE IRRIGATIONSpecial Requests NOT REPORTEDDirect Exam NO NEUTROPHILS SEEN RARE GRAM POSITIVE COCCI IN PAIRS Culture METHICILLIN RESISTANT STAPHYLOCOCCUS AUREUS LIGHT GROWTH For susceptibility, refer to previous culture. STREPTOCOCCI, BETA HEMOLYTIC GROUP C SCANT GROWTH NO ANAEROBIC ORGANISMS ISOLATED AT 5 DAYS Report Status FINAL 04/15/2017 [facility] Comment on above: Performed By: #### A ANC ####[address] [address] Neutrophils Specimen Description .TISSUE RIGHT MEDIAL HEEL PRE IRRIGATIONSpecial Requests NOT REPORTEDDirect Exam NO NEUTROPHILS SEEN NO BACTERIA SEEN Culture STREPTOCOCCI, BETA HEMOLYTIC GROUP C LIGHT GROWTH METHICILLIN RESISTANT STAPHYLOCOCCUS AUREUS SCANT GROWTH For susceptibility, refer to previous culture. DIPHTHEROIDS LIGHT GROWTH NO ANAEROBIC ORGANISMS ISOLATED AT 5 DAYS Report Status FINAL 04/15/2017 [facility] Comment on above: Performed By: #### A ANC ####[place] [address] Basic Metabolic Profon 04-13 (cont.) [facility] Comment on above: Result Comment: Aver age GFR for 50-59 years old: 93 mL/min/1.73sq mChronic Kidney Disease: <60 mL/min/1.73sq mKidney failure: <15 mL/min/1.73sq meGFR calculated using average adult body mass. Additional eGFR calculator available at:http://www.[facility].[email or web address]_crcl_[email or web address] [address] Performed By: #### C DP, CMPX, CRP, SED, GLYHGB ####[address] [address] Anion gap 11 mmol/L Normal 9-17 [facility] Comment on above: Performed By: #### C DP, CMPX, CRP, SED, GLYHGB ####[address] [address] Calcium 8.7 mg/dL Normal 8.6-10.4 [facility] Comment on above: Performed By: #### C DP, CMPX, CRP, SED, GLYHGB ####[address] [address] Chloride 106 mmol/L Normal 98-107 [facility] Comment on above: Performed By: #### C DP, CMPX, CRP, SED, GLYHGB ####[address] [address] CO2 22 mmol/L Normal 20-31 [facility] Comment on above: Performed By: #### C DP, CMPX, CRP, SED, GLYHGB ####[address] [address] Creatinine 1.04 mg/dL Normal 0.70-1.20 [facility] Comment on above: Performed By: #### C DP, CMPX, CRP, SED, GLYHGB ####[address] [address] eGFR (non-black) mL/min/{1.73_m2} Normal >60 [facility] Comment on above: Performed By: #### C DP, CMPX, CRP, SED, GLYHGB ####[address] [place] [address] Glucose mass conc 174 mg/dL High 70-99 [facility] Comment on above: Performed By: #### C DP, CMPX, CRP, SED, GLYHGB ####[address] [place] [address] Potassium molar conc 4.1 mmol/L Normal 3.7-5.3 [facility] Comment on above: Performed By: #### C DP, CMPX, CRP, SED, GLYHGB ####[address] [place] [address] Sodium 139 mmol/L Normal 135-144 [facility] Comment on above: Performed By: #### C DP, CMPX, CRP, SED, GLYHGB ####[address] [address] Urea nitrogen 16 mg/dL Normal 6-20 [facility] Comment on above: Performed By: #### C DP, CMPX, CRP, SED, GLYHGB ####[address] [place] [address] BUN/CRE Ratio NOT REPORTED Normal -20 [facility] Comment on above: Performed By: #### C DP, CMPX, CRP, SED, GLYHGB ####[address] [place] [address] Staging: NOT REPORTED Normal [facility] Comment on above: Performed By: #### C DP, CMPX, CRP, SED, GLYHGB ####[address] [place] [address] CBC with Diffon 04-13-2017 Abs. Basophil <0.03 Normal 0.00-0.20 [facility] Comment on above: Performed By: #### C DP, CMPX, CRP, SED, GLYHGB ####[address] [address] Abs.Neutrophil (Seg) 4.97 k/uL Normal 1.50-8.10 [facility] Comment on above: Performed By: #### C DP, CMPX, CRP, SED, GLYHGB ####[address] [address] Basophils/100 WBC Auto (Bld) 0 % Normal 0-2 [facility] Comment on above: Performed By: #### C DP, CMPX, CRP, SED, GLYHGB ####[address] [address] Eosinophils 0.24 10*3/uL Normal 0.00-0.44 [facility] Comment on above: Performed By: #### C DP, CMPX, CRP, SED, GLYHGB ####[address] [address] Eosinophils/100 leukocytes 3 % Normal 1-4 [facility] Comment on above: Performed By: #### C DP, CMPX, CRP, SED, GLYHGB ####[address] [address] Erythrocyte distribution width Auto Ratio (RBC) 14.8 % High 11.8-14.4 [facility] Comment on above: Performed By: #### C DP, CMPX, CRP, SED, GLYHGB ####[address] [address] Erythrocyte morphology ANISOCYTOSIS PRESENT Normal [facility] Comment on above: Result Comment: [address] [address] Performed By: #### C DP, CMPX, CRP, SED, GLYHGB ####[address] [address] Erythrocytes (RBC) 0.0 per 100 WBC Normal 0.0 [facility] Comment on above: Performed By: #### C DP, CMPX, CRP, SED, GLYHGB ####[address] [address] Erythrocytes (RBC) 3.42 10*6/uL Low 4.21-5.77 [facility] Comment on above: Performed By: #### C DP, CMPX, CRP, SED, GLYHGB ####[address] [address] Granulocytes/100 WBC (Bld) 0.19 k/uL Normal 0.00-0.30 [facility] Comment on above: Performed By: #### C DP, CMPX, CRP, SED, GLYHGB ####[address] [address] Hematocrit (HCT) 29.4 % Low 40.7-50.3 [facility] Comment on above: Performed By: #### C DP, CMPX, CRP, SED, GLYHGB ####[address] [address] Hemoglobin mass conc (Bld) 8.8 g/dL Low 13.0-17.0 [facility] Comment on above: Performed By: #### C DP, CMPX, CRP, SED, GLYHGB ####[address] [address] Immature granulocytes #/vol (Bld) 2 % High 0 [facility] Comment on above: Performed By: #### C DP, CMPX, CRP, SED, GLYHGB ####[address] [address] Lymphocytes 2.00 10*3/uL Normal 1.10-3.70 [facility] Comment on above: Performed By: #### C DP, CMPX, CRP, SED, GLYHGB ####[address] [address] Lymphocytes/100 leukocytes 25 % Normal 24-43 [facility] Comment on above: Performed By: #### C DP, CMPX, CRP, SED, GLYHGB ####[address] [address] MCH 25.7 pg Normal 25.2-33.5 [facility] Comment on above: Performed By: #### C DP, CMPX, CRP, SED, GLYHGB ####[address] [address] MCHC mass conc (RBC) 29.9 g/dL Normal 28.4-34.8 [facility] Comment on above: Performed By: #### C DP, CMPX, CRP, SED, GLYHGB ####[address] [address] MCV 86.0 fL Normal 82.6-102.9 [facility] Comment on above: Performed By: #### C DP, CMPX, CRP, SED, GLYHGB ####[address] [address] Monocytes 0.53 10*3/uL Normal 0.10-1.20 [facility] Comment on above: Performed By: #### C DP, CMPX, CRP, SED, GLYHGB ####[address] [address] Monocytes/100 leukocytes 7 % Normal 3-12 [facility] Comment on above: Performed By: #### C DP, CMPX, CRP, SED, GLYHGB ####[address] [address] Neutrophil (Seg) 63 % Normal 36-65 [facility] Comment on above: Performed By: #### C DP, CMPX, CRP, SED, GLYHGB ####[address] [place] [address] Platelet mean volume (PMV) 9.9 fL Normal 8.1-13.5 [facility] Comment on above: Performed By: #### C DP, CMPX, CRP, SED, GLYHGB ####[address] [address] Platelets 257 10*3/uL Normal 138-453 [facility] Comment on above: Performed By: #### C DP, CMPX, CRP, SED, GLYHGB ####[address] [address] WBC (Leukocytes) 8.0 10*3/uL Normal 3.5-11.3 [facility] Comment on above: Performed By: #### C DP, CMPX, CRP, SED, GLYHGB ####[address] [address] Auto Diff Performed NOT REPORTED Normal [facility] Comment on above: Performed By: #### C DP, CMPX, CRP, SED, GLYHGB ####[address] [address] Platelets NOT REPORTED Normal [facility] Comment on above: Performed By: #### C DP, CMPX, CRP, SED, GLYHGB ####[address] [place] [address] WBC Morphology NOT REPORTED Normal [facility] Comment on above: Performed By: #### C DP, CMPX, CRP, SED, GLYHGB ####[address] [address] Discharge Summaryon 04-13-19 18 HIM IP Note OR Bottom Cementer Normal [facility] Plan of Careon 04-13-2017 HIM IP Note OR Bottom Cementer Normal [facility] HIM IP Note OR Bottom Cementer Normal [facility] Progress Noteon 04-13-2017 HIM IP Note OR Bottom Cementer Normal [facility] HIM IP Note OR Bottom Cementer Normal [facility] HIM IP Note OR Bottom Cementer Normal [facility] HIM IP Note OR Bottom Cementer Normal [facility] HIM IP Note OR Bottom Cementer Normal [facility] HIM IP Note OR Bottom Cementer Normal [facility] Basic Metabolic Profon 04-12 (cont.) Normal [facility] Comment on above: Result Comment: Aver age GFR for 50-59 years old: 93 mL/min/1.73sq mChronic Kidney Disease: <60 mL/min/1.73sq mKidney failure: <15 mL/min/1.73sq meGFR calculated using average adult body mass. Additional eGFR calculator available at:http://www.[email or web address]_crcl_2012.htmHigh[facility] [address] [place] [address] Performed By: #### C DP, CMPX, CRP, SED, GLYHGB ####[facility] [address] [place] [address] Anion gap 8 mmol/L Low 9-17 [facility] Comment on above: Performed By: #### C DP, CMPX, CRP, SED, GLYHGB ####[facility] [address] [place] [address] Calcium 8.8 mg/dL Normal 8.6-10.4 [facility] Comment on above: Performed By: #### C DP, CMPX, CRP, SED, GLYHGB ####[facility] [address] [place] [address] Chloride 107 mmol/L Normal 98-107 [facility] Comment on above: Performed By: #### C DP, CMPX, CRP, SED, GLYHGB ####[facility] [place] [address] CO2 23 mmol/L Normal 20-31 [facility] Comment on above: Performed By: #### C DP, CMPX, CRP, SED, GLYHGB ####[facility] [place] [address] Creatinine 1.01 mg/dL Normal 0.70-1.20 [facility] Comment on above: Performed By: #### C DP, CMPX, CRP, SED, GLYHGB ####[address] [address] eGFR (non-black) mL/min/{1.73_m2} Normal >60 Me [facility] Comment on above: Performed By: #### C DP, CMPX, CRP, SED, GLYHGB ####[address] [address] Glucose mass conc 172 mg/dL High 70-99 [facility] Comment on above: Performed By: #### C DP, CMPX, CRP, SED, GLYHGB ####[address] [place] [address] Potassium molar conc 3.9 mmol/L Normal 3.7-5.3 [facility] Comment on above: Performed By: #### C DP, CMPX, CRP, SED, GLYHGB ####[address] [place] [address] Sodium 138 mmol/L Normal 135-144 [facility] Comment on above: Performed By: #### C DP, CMPX, CRP, SED, GLYHGB ####[address] [place] [address] Urea nitrogen 15 mg/dL Normal 6-20 [facility] Comment on above: Performed By: #### C DP, CMPX, CRP, SED, GLYHGB ####[address] [place] [address] BUN/CRE Ratio NOT REPORTED Normal - [facility] Comment on above: Performed By: #### C DP, CMPX, CRP, SED, GLYHGB ####[address] [address] Staging: NOT REPORTED Normal [facility] Comment on above: Performed By: #### C DP, CMPX, CRP, SED, GLYHGB ####[address] [address] CBC with Diffon 04-12-2017 Abs. Basophil <0.03 Normal 0.00-0.20 [facility] Comment on above: Performed By: #### C DP, CMPX, CRP, SED, GLYHGB ####[address] [address] Abs.Neutrophil (Seg) 4.31 k/uL Normal 1.50-8.10 [facility] Comment on above: Performed By: #### C DP, CMPX, CRP, SED, GLYHGB ####[address] [address] Basophils/100 WBC Auto (Bld) 0 % Normal 0-2 [facility] Comment on above: Performed By: #### C DP, CMPX, CRP, SED, GLYHGB ####[address] [address] Eosinophils 0.21 10*3/uL Normal 0.00-0.44 [facility] Comment on above: Performed By: #### C DP, CMPX, CRP, SED, GLYHGB ####[address] [address] Eosinophils/100 leukocytes 3 % Normal 1-4 [facility] Comment on above: Performed By: #### C DP, CMPX, CRP, SED, GLYHGB ####[address] [address] Erythrocyte distribution width Auto Ratio (RBC) 14.7 % High 11.8-14.4 [facility] Comment on above: Performed By: #### C DP, CMPX, CRP, SED, GLYHGB ####[address] [address] Erythrocyte morphology ANISOCYTOSIS PRESENT Normal [facility] Comment on above: Result Comment: [address] [address] Performed By: #### C DP, CMPX, CRP, SED, GLYHGB ####[address] [address] Erythrocytes (RBC) 3.45 10*6/uL Low 4.21-5.77 [facility] Comment on above: Performed By: #### C DP, CMPX, CRP, SED, GLYHGB ####[address] [address] Granulocytes/100 WBC (Bld) 0.22 k/uL Normal 0.00-0.30 [facility] Comment on above: Performed By: #### C DP, CMPX, CRP, SED, GLYHGB ####[address] [address] Hematocrit (HCT) 28.9 % Low 40.7-50.3 [facility] Comment on above: Performed By: #### C DP, CMPX, CRP, SED, GLYHGB ####[address] [address] Hemoglobin mass conc (Bld) 8.9 g/dL Low 13.0-17.0 [facility] Comment on above: Performed By: #### C DP, CMPX, CRP, SED, GLYHGB ####[address] [address] Immature granulocytes #/vol (Bld) 3 % High 0 [facility] Comment on above: Performed By: #### C DP, CMPX, CRP, SED, GLYHGB ####[address] [address] Lymphocytes 1.83 10*3/uL Normal 1.10-3.70 [facility] Comment on above: Performed By: #### C DP, CMPX, CRP, SED, GLYHGB ####[address] [address] Lymphocytes/100 leukocytes 26 % Normal 24-43 [facility] Comment on above: Performed By: #### C DP, CMPX, CRP, SED, GLYHGB ####[address] [address] MCH 25.8 pg Normal 25.2-33.5 [facility] Comment on above: Performed By: #### C DP, CMPX, CRP, SED, GLYHGB ####[address] [address] MCHC mass conc (RBC) 30.8 g/dL Normal 28.4-34.8 [facility] Comment on above: Performed By: #### C DP, CMPX, CRP, SED, GLYHGB ####[address] [address] MCV 83.8 fL Normal 82.6-102.9 [facility] Comment on above: Performed By: #### C DP, CMPX, CRP, SED, GLYHGB ####[address] [address] Monocytes 0.58 10*3/uL Normal 0.10-1.20 [facility] Comment on above: Performed By: #### C DP, CMPX, CRP, SED, GLYHGB ####[address] [place] [address] Monocytes/100 leukocytes 8 % Normal 3-12 [facility] Comment on above: Performed By: #### C DP, CMPX, CRP, SED, GLYHGB ####[address] [address] Neutrophil (Seg) 60 % Normal 36-65 [facility] Comment on above: Performed By: #### C DP, CMPX, CRP, SED, GLYHGB ####[address] [address] Platelet mean volume (PMV) 9.3 fL Normal 8.1-13.5 [facility] Comment on above: Performed By: #### C DP, CMPX, CRP, SED, GLYHGB ####[address] [address] Platelets 231 10*3/uL Normal 138-453 [facility] Comment on above: Performed By: #### C DP, CMPX, CRP, SED, GLYHGB ####[address] [address] WBC (Leukocytes) 7.2 10*3/uL Normal 3.5-11.3 [facility] Comment on above: Performed By: #### C DP, CMPX, CRP, SED, GLYHGB ####[address] [address] Auto Diff Performed NOT REPORTED Normal [facility] Comment on above: Performed By: #### C DP, CMPX, CRP, SED, GLYHGB ####[address] [address] Platelets NOT REPORTED Normal [facility] Comment on above: Performed By: #### C DP, CMPX, CRP, SED, GLYHGB ####[address] [place], [place] [id number] WBC Morphology NOT REPORTED Normal [facility] Comment on above: Performed By: #### C DP, CMPX, CRP, SED, GLYHGB ####[address] [place], [place] [id number] Cult,Aerobe/Anaerobeon 04-12 Neutrophils Specimen Description .TISSUE RIGHT [...] NOT REPORTEDTrimethoprim/Sulfa <=10 SUSCEPTIBLEVancomycin 1 SUSCEPTIBLE Normal [facility] Comment on above: Performed By: #### A ANC ####[facility] [address] [place], [place] [id number] Plan of Careon 04-12-2017 HIM IP Note OR Bottom Cementer Normal [facility] HIM IP Note OR Bottom Cementer Normal [facility] HIM IP Note OR Bottom Cementer Normal [facility] HIM IP Note OR Bottom Cementer Normal [facility] HIM IP Note OR Bottom Cementer Normal [facility] Progress Noteon 04-12-2017 HIM IP Note OR Bottom Cementer Normal [facility] HIM IP Note OR Bottom Cementer Normal [facility] HIM IP Note OR Bottom Cementer Normal [facility] HIM IP Note OR Bottom Cementer Normal [facility] HIM IP Note OR Bottom Cementer Normal [facility] HIM IP Note OR Bottom Cementer Normal [facility] Basic Metabolic Profon 04-11 (cont.) Normal [facility] Comment on above: Result Comment: Aver age GFR for 50-59 years old: 93 mL/min/1.73sq mChronic Kidney Disease: <60 mL/min/1.73sq mKidney failure: <15 mL/min/1.73sq meGFR calculated using average adult body mass. Additional eGFR calculator available at:http://www.[facility].[employer]/multiple_crcl_2012.htm[facility] [address] [place] [address] Performed By: #### C DP, CMPX, CRP, SED, GLYHGB ####[address] [address] Anion gap 14 mmol/L Normal 9-17 [facility] Comment on above: Performed By: #### C DP, CMPX, CRP, SED, GLYHGB ####[facility] [address] [place] [address] Calcium 8.2 mg/dL Low 8.6-10.4 [facility] Comment on above: Performed By: #### C DP, CMPX, CRP, SED, GLYHGB ####[address] [address] Chloride 101 mmol/L Normal 98-107 [facility] Comment on above: Performed By: #### C DP, CMPX, CRP, SED, GLYHGB ####[facility] [address] [place] [address] CO2 21 mmol/L Normal 20-31 [facility] Comment on above: Performed By: #### C DP, CMPX, CRP, SED, GLYHGB ####[facility] [address] [place] [address] Creatinine 1.16 mg/dL Normal 0.70-1.20 [facility] Comment on above: Performed By: #### C DP, CMPX, CRP, SED, GLYHGB ####[address] [address] eGFR (non-black) mL/min/{1.73_m2} Normal >60 Me [facility] Comment on above: Performed By: #### C DP, CMPX, CRP, SED, GLYHGB ####[address] [address] Glucose mass conc 153 mg/dL High 70-99 [facility] Comment on above: Performed By: #### C DP, CMPX, CRP, SED, GLYHGB ####[address] [address] Potassium molar conc 4.0 mmol/L Normal 3.7-5.3 [facility] Comment on above: Performed By: #### C DP, CMPX, CRP, SED, GLYHGB ####[address] [address] Sodium 136 mmol/L Normal 135-144 [facility] Comment on above: Performed By: #### C DP, CMPX, CRP, SED, GLYHGB ####[address] [address] Urea nitrogen 18 mg/dL Normal 6-20 [facility] Comment on above: Performed By: #### C DP, CMPX, CRP, SED, GLYHGB ####[address] [address] BUN/CRE Ratio NOT REPORTED Normal 9-20 [facility] Comment on above: Performed By: #### C DP, CMPX, CRP, SED, GLYHGB ####[address] [address] Staging: NOT REPORTED Normal [facility] Comment on above: Performed By: #### C DP, CMPX, CRP, SED, GLYHGB ####[address] [address] C-Reactive Proteinon 018 C reactive protein (CRP) 55.5 mg/L High 0.0-5.0 [facility] Comment on above: Result Comment: [address] [address] Performed By: #### C DP, CMPX, CRP, SED, GLYHGB ####[address] [address] CBC with Diffon 04-11-2017 Abs. Basophil <0.03 Normal 0.00-0.20 [facility] Comment on above: Performed By: #### C DP, CMPX, CRP, SED, GLYHGB ####[address] [address] Abs.Neutrophil (Seg) 5.04 k/uL Normal 1.50-8.10 [facility] Comment on above: Performed By: #### C DP, CMPX, CRP, SED, GLYHGB ####[address] [address] Basophils/100 WBC Auto (Bld) 0 % Normal 0-2 [facility] Comment on above: Performed By: #### C DP, CMPX, CRP, SED, GLYHGB ####[address] [address] Eosinophils 0.24 10*3/uL Normal 0.00-0.44 [facility] Comment on above: Performed By: #### C DP, CMPX, CRP, SED, GLYHGB ####[address] [address] Eosinophils/100 leukocytes 3 % Normal 1-4 [facility] Comment on above: Performed By: #### C DP, CMPX, CRP, SED, GLYHGB ####[address] [address] Erythrocyte distribution width Auto Ratio (RBC) 14.8 % High 11.8-14.4 [facility] Comment on above: Performed By: #### C DP, CMPX, CRP, SED, GLYHGB ####[address] [address] Erythrocyte morphology ANISOCYTOSIS PRESENT Normal [facility] Comment on above: Result Comment: [address] [address] Performed By: #### C DP, CMPX, CRP, SED, GLYHGB ####[address] [address] Erythrocytes (RBC) 3.36 10*6/uL Low 4.21-5.77 [facility] Comment on above: Performed By: #### C DP, CMPX, CRP, SED, GLYHGB ####[address] [address] Granulocytes/100 WBC (Bld) 0.09 k/uL Normal 0.00-0.30 [facility] Comment on above: Performed By: #### C DP, CMPX, CRP, SED, GLYHGB ####[address] [address] Hematocrit (HCT) 28.8 % Low 40.7-50.3 [facility] Comment on above: Performed By: #### C DP, CMPX, CRP, SED, GLYHGB ####[address] [address] Hemoglobin mass conc (Bld) 8.8 g/dL Low 13.0-17.0 [facility] Comment on above: Performed By: #### C DP, CMPX, CRP, SED, GLYHGB ####[address] [address] Immature granulocytes #/vol (Bld) 1 % High 0 [facility] Comment on above: Performed By: #### C DP, CMPX, CRP, SED, GLYHGB ####[address] [address] Lymphocytes 1.73 10*3/uL Normal 1.10-3.70 [facility] Comment on above: Performed By: #### C DP, CMPX, CRP, SED, GLYHGB ####[address] [address] Lymphocytes/100 leukocytes 23 % Low 24-43 [facility] Comment on above: Performed By: #### C DP, CMPX, CRP, SED, GLYHGB ####[address] [address] MCH 26.2 pg Normal 25.2-33.5 [facility] Comment on above: Performed By: #### C DP, CMPX, CRP, SED, GLYHGB ####[address] [address] MCHC mass conc (RBC) 30.6 g/dL Normal 28.4-34.8 [facility] Comment on above: Performed By: #### C DP, CMPX, CRP, SED, GLYHGB ####[address] [address] MCV 85.7 fL Normal 82.6-102.9 [facility] Comment on above: Performed By: #### C DP, CMPX, CRP, SED, GLYHGB ####[address] [address] Monocytes 0.56 10*3/uL Normal 0.10-1.20 [facility] Comment on above: Performed By: #### C DP, CMPX, CRP, SED, GLYHGB ####[address] [address] Monocytes/100 leukocytes 7 % Normal 3-12 [facility] Comment on above: Performed By: #### C DP, CMPX, CRP, SED, GLYHGB ####[address] [address] Neutrophil (Seg) 66 % High 36-65 [facility] Comment on above: Performed By: #### C DP, CMPX, CRP, SED, GLYHGB ####[address] [address] Platelet mean volume (PMV) 9.9 fL Normal 8.1-13.5 [facility] Comment on above: Performed By: #### C DP, CMPX, CRP, SED, GLYHGB ####[address] [address] Platelets 264 10*3/uL Normal 138-453 [facility] Comment on above: Performed By: #### C DP, CMPX, CRP, SED, GLYHGB ####[address] [address] WBC (Leukocytes) 7.7 10*3/uL Normal 3.5-11.3 [facility] Comment on above: Performed By: #### C DP, CMPX, CRP, SED, GLYHGB ####[address] [address] Auto Diff Performed NOT REPORTED Normal [facility] Comment on above: Performed By: #### C DP, CMPX, CRP, SED, GLYHGB ####[address] [address] Platelets NOT REPORTED Normal [facility] Comment on above: Performed By: #### C DP, CMPX, CRP, SED, GLYHGB ####[facility] [address] [place] [address] WBC Morphology NOT REPORTED Normal [facility] Comment on above: Performed By: #### C DP, CMPX, CRP, SED, GLYHGB ####[facility] [address] [place] [address] Hemoglobin A1Con 04-11-2017 Glucose mass conc 315 mg/dL Normal [facility] Comment on above: Result Comment: The ADA and AACC recommend providing the estimated average glucose result to permit better patient understanding of their HBA1c result.[address] [address] Performed By: #### C DP, CMPX, CRP, SED, GLYHGB ####[facility] [address] [place] [address] Hemoglobin A1c/Hemoglobin.total mass fraction (Bld) 12.6 % High 4.0-6.0 [facility] Comment on above: Performed By: #### C DP, CMPX, CRP, SED, GLYHGB ####[facility] [address] [place] [address] Plan of Careon 04-11-2017 HIM IP Note OR Bottom Cementer Normal [facility] HIM IP Note OR Bottom Cementer Normal [facility] HIM IP Note OR Bottom Cementer Normal [facility] HIM IP Note OR Bottom Cementer Normal [facility] Progress Noteon 04-11-2017 HIM IP Note OR Bottom Cementer Normal [facility] HIM IP Note OR Bottom Cementer Normal [facility] HIM IP Note OR Bottom Cementer Normal [facility] HIM IP Note OR Bottom Cementer Normal [facility] Consulton 04-10-2017 HIM IP Note OR Bottom Cementer Normal [facility] Cult,Urine,Cathon 04-10-2017 Cult,Urine,Cath Specimen Description .CATHETERIZED URINE Special Requests NOT REPORTED Culture PRESUMPTIVE ID: LEO ALBICANS >[id number] CFU/ML Report Status FINAL 04/10/2017 Normal [facility] Comment on above: Performed By: #### C DP, CMPX, CRP, SED, GLYHGB ####[address] [place] [address] Influenza A + B, PCRon 04-10 Influenza A + B, PCR Specimen Descriptio n .NASOPHARYNGEAL SWABSpecial Requests NOT REPORTEDDirect Exam NEGATIVE: Influenza A and B RNA not detected by nucleic acid amplification. The results obtained should be interpreted in conjunction with clinical findings and other laboratory markers. The performance characterisitics of this molecular test were validated by the molecular microbiology department of [facility] [employer]. Report Status FINAL 04/10/2017 [facility] Comment on above: Performed By: #### C DP, CMPX, CRP, SED, GLYHGB ####[place] [address] OPERATIVE REPORTon 8 OPERATIVE REPORT [address] [address] OPERATIVE REPORTPATIENT NAME: GANGA STINSON : 1960[facility] REC NO: [id number] ROOM: [address] [place] [address] NO: [id number] ADMIT DATE: 04/09/2017PROVIDER: William Foster-JudgeDATE OF PROCEDURE: [...] for recovery. The patient has a primary it security engineer, Dr. 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 The department of Infectious Disease,Internal Medicine, and specialty medicine services will provide care duringthe inpatient admission. He will return to the care of Dr. Min [facility] upon discharge.INDICATIONS FOR OPERATION: This is [...] He would follow up with his usual it security engineer on anoutpatient basis. The departments of Internal Medicine and InfectiousDisease will guide our care in the interim. Cultures should be availablewith sensitivities in approximately 72 hours and consider dischargeplanning then.WILLIAM FOSTER-JUDGED: 04/10/2017 15:31:53 /Jerry_SSROR_IJob#: [id number] Doc#: [id number]: Yakov Min [facility] Department of Infectious Disease Internal Medicine Normal [facility] Plan of Careon 04-10-2017 HIM IP Note OR Bottom Cementer Normal [facility] HIM IP Note OR Bottom Cementer Normal [facility] Progress Noteon 04-10-2017 HIM IP Note OR Bottom Cementer Normal [facility] HIM IP Note OR Bottom Cementer Normal [facility] XR ANKLE RIGHT STANDARDon XR ANKLE RIGHT [...] Bakerigned by:Roberto Carlos Cavazos MD04/09/17inal result Normal [facility] C-Reactive Proteinon 018 C reactive protein (CRP) 114.3 mg/L High 0.0-5.0 [facility] Comment on above: Result Comment: [address] [address] Performed By: #### C DP, CMPX, CRP, SED, GLYHGB ####[address] [address] CBC with Diffon 04-09-2017 Abs. Basophil <0.03 Normal 0.00-0.20 [facility] Comment on above: Performed By: #### C DP, CMPX, CRP, SED, GLYHGB ####[address] [address] Abs.Neutrophil (Seg) 5.95 k/uL Normal 1.50-8.10 [facility] Comment on above: Performed By: #### C DP, CMPX, CRP, SED, GLYHGB ####[address] [address] Basophils/100 WBC Auto (Bld) 0 % Normal 0-2 [facility] Comment on above: Performed By: #### C DP, CMPX, CRP, SED, GLYHGB ####[address] [address] Eosinophils 0.11 10*3/uL Normal 0.00-0.44 [facility] Comment on above: Performed By: #### C DP, CMPX, CRP, SED, GLYHGB ####[address] [address] Eosinophils/100 leukocytes 1 % Normal 1-4 [facility] Comment on above: Performed By: #### C DP, CMPX, CRP, SED, GLYHGB ####[address] [address] Erythrocyte distribution width Auto Ratio (RBC) 15.0 % High 11.8-14.4 [facility] Comment on above: Performed By: #### C DP, CMPX, CRP, SED, GLYHGB ####[address] [address] Erythrocyte morphology ANISOCYTOSIS PRESENT Normal [facility] Comment on above: Result Comment: [address] [place] [address] Performed By: #### C DP, CMPX, CRP, SED, GLYHGB ####[address] [address] Erythrocytes (RBC) 3.50 10*6/uL Low 4.21-5.77 [facility] Comment on above: Performed By: #### C DP, CMPX, CRP, SED, GLYHGB ####[address] [address] Granulocytes/100 WBC (Bld) 0.09 k/uL Normal 0.00-0.30 [facility] Comment on above: Performed By: #### C DP, CMPX, CRP, SED, GLYHGB ####[address] [address] Hematocrit (HCT) 29.9 % Low 40.7-50.3 [facility] Comment on above: Performed By: #### C DP, CMPX, CRP, SED, GLYHGB ####[address] [address] Hemoglobin mass conc (Bld) 9.0 g/dL Low 13.0-17.0 [facility] Comment on above: Performed By: #### C DP, CMPX, CRP, SED, GLYHGB ####[address] [address] Immature granulocytes #/vol (Bld) 1 % High 0 [facility] Comment on above: Performed By: #### C DP, CMPX, CRP, SED, GLYHGB ####[address] [address] Lymphocytes 1.60 10*3/uL Normal 1.10-3.70 [facility] Comment on above: Performed By: #### C DP, CMPX, CRP, SED, GLYHGB ####[address] [address] Lymphocytes/100 leukocytes 19 % Low 24-43 [facility] Comment on above: Performed By: #### C DP, CMPX, CRP, SED, GLYHGB ####[address] [address] MCH 25.7 pg Normal 25.2-33.5 [facility] Comment on above: Performed By: #### C DP, CMPX, CRP, SED, GLYHGB ####[address] [address] MCHC mass conc (RBC) 30.1 g/dL Normal 28.4-34.8 [facility] Comment on above: Performed By: #### C DP, CMPX, CRP, SED, GLYHGB ####[address] [address] MCV 85.4 fL Normal 82.6-102.9 [facility] Comment on above: Performed By: #### C DP, CMPX, CRP, SED, GLYHGB ####[address] [address] Monocytes 0.53 10*3/uL Normal 0.10-1.20 [facility] Comment on above: Performed By: #### C DP, CMPX, CRP, SED, GLYHGB ####[address] [address] Monocytes/100 leukocytes 6 % Normal 3-12 [facility] Comment on above: Performed By: #### C DP, CMPX, CRP, SED, GLYHGB ####[address] [address] Neutrophil (Seg) 73 % High 36-65 [facility] Comment on above: Performed By: #### C DP, CMPX, CRP, SED, GLYHGB ####[address] [address] Platelet mean volume (PMV) 9.6 fL Normal 8.1-13.5 [facility] Comment on above: Performed By: #### C DP, CMPX, CRP, SED, GLYHGB ####[address] [address] Platelets 224 10*3/uL Normal 138-453 [facility] Comment on above: Performed By: #### C DP, CMPX, CRP, SED, GLYHGB ####[address] [address] WBC (Leukocytes) 8.3 10*3/uL Normal 3.5-11.3 [facility] Comment on above: Performed By: #### C DP, CMPX, CRP, SED, GLYHGB ####[address] [address] Auto Diff Performed NOT REPORTED Normal [facility] Comment on above: Performed By: #### C DP, CMPX, CRP, SED, GLYHGB ####[facility] [place] [address] Platelets NOT REPORTED Normal [facility] Comment on above: Performed By: #### C DP, CMPX, CRP, SED, GLYHGB ####[address] [place] [address] WBC Morphology NOT REPORTED Normal [facility] Comment on above: Performed By: #### C DP, CMPX, CRP, SED, GLYHGB ####[address] [address] Comp Metabolic Pr/rfx MGon 0 - (cont.) Normal [facility] Comment on above: Result Comment: Aver age GFR for 50-59 years old: 93 mL/min/1.73sq mChronic Kidney Disease: <60 mL/min/1.73sq mKidney failure: <15 mL/min/1.73sq meGFR calculated using average adult body mass. Additional eGFR calculator available at:[email or web address] Hospital Medical Center [address] [place] [address] Performed By: #### C DP, CMPX, CRP, SED, GLYHGB ####[address] [address] Alanine aminotransferase (ALT) 9 U/L Normal 5-41 [facility] Comment on above: Performed By: #### C DP, CMPX, CRP, SED, GLYHGB ####[address] [place] [address] Albumin 2.8 g/dL Low 3.5-5.2 [facility] Comment on above: Performed By: #### C DP, CMPX, CRP, SED, GLYHGB ####[address] [address] Albumin/Globulin Ratio 0.7 {ratio} Low 1.0-2.5 [facility] Comment on above: Performed By: #### C DP, CMPX, CRP, SED, GLYHGB ####[address] [place] [address] Alkaline Phos 57 U/L Normal 40-129 [facility] Comment on above: Performed By: #### C DP, CMPX, CRP, SED, GLYHGB ####[address] [address] Anion gap 13 mmol/L Normal 9-17 [facility] Comment on above: Performed By: #### C DP, CMPX, CRP, SED, GLYHGB ####[address] [place] [address] Aspartate aminotransferase (AST) 9 U/L Normal <40 [facility] Comment on above: Performed By: #### C DP, CMPX, CRP, SED, GLYHGB ####[facility] [address] [place] [address] Bilirubin Ql (U) 0.26 mg/dL Low 0.3-1.2 [facility] Comment on above: Performed By: #### C DP, CMPX, CRP, SED, GLYHGB ####[facility] [address] [place] [address] Calcium 8.4 mg/dL Low 8.6-10.4 [facility] Comment on above: Performed By: #### C DP, CMPX, CRP, SED, GLYHGB ####[facility] [address] [place] [address] Chloride 99 mmol/L Normal 98-107 [facility] Comment on above: Performed By: #### C DP, CMPX, CRP, SED, GLYHGB ####[address] [place] [address] CO2 21 mmol/L Normal 20-31 [facility] Comment on above: Performed By: #### C DP, CMPX, CRP, SED, GLYHGB ####[address] [address] Creatinine 1.13 mg/dL Normal 0.70-1.20 [facility] Comment on above: Performed By: #### C DP, CMPX, CRP, SED, GLYHGB ####[address] [address] eGFR (non-black) mL/min/{1.73_m2} Normal >60 [facility] Comment on above: Performed By: #### C DP, CMPX, CRP, SED, GLYHGB ####[address] [address] Glucose mass conc 267 mg/dL High 70-99 [facility] Comment on above: Performed By: #### C DP, CMPX, CRP, SED, GLYHGB ####[address] [address] Potassium molar conc 4.3 mmol/L Normal 3.7-5.3 [facility] Comment on above: Performed By: #### C DP, CMPX, CRP, SED, GLYHGB ####[address] [address] Protein 7.0 g/dL Normal 6.4-8.3 [facility] Comment on above: Performed By: #### C DP, CMPX, CRP, SED, GLYHGB ####[address] [address] Sodium 133 mmol/L Low 135-144 [facility] Comment on above: Performed By: #### C DP, CMPX, CRP, SED, GLYHGB ####[address] [address] Urea nitrogen 22 mg/dL High 6-20 [facility] Comment on above: Performed By: #### C DP, CMPX, CRP, SED, GLYHGB ####[facility] [address] [place], [place] [id number] BUN/CRE Ratio NOT REPORTED Normal 9-20 [facility] Comment on above: Performed By: #### C DP, CMPX, CRP, SED, GLYHGB ####[facility] [address] [place], [place] [id number] Staging: NOT REPORTED Normal [facility] Comment on above: Performed By: #### C DP, CMPX, CRP, SED, GLYHGB ####[facility] [address] [place], [place] 0150[address] Consulton 04-09-2017 HIM IP Note OR Bottom Cementer Normal [facility] HIM IP Note OR Bottom Cementer Normal [facility] HIM IP Note OR Bottom Cementer Normal [facility] Flu A/B Ag Detectionon 04-09 Flu A/B Ag Detection Specimen Descriptio n .NASOPHARYNGEAL SWABSpecial Requests NOT REPORTEDDirect Exam PRESUMPTIVE NEGATIVE for Influenza A + B antigens. PCR testing to confirm this result is available upon request. Specimen will be saved in the laboratory for 7 days. Please call [phone] if PCR testing is indicated. Report Status FINAL 04/09/2017 Normal [facility] Comment on above: Performed By: #### C DP, CMPX, CRP, SED, GLYHGB ####[facility] [address] [place], [place] [id number] History and Physicalon 04-09 HIM IP Note OR Bottom Cementer Normal [facility] MRI FOOT RIGHT W WO CONTRAST on [...] suspected despite a lack of definitive precontrast [id number] changes.Large ulcer overlying the lateral malleolus with underlying osteomyelitis.Interpreted by:SAMMI Tellezigned by:Jesusita Mock MD04/09/17inal result Normal [facility] Op Noteon 04-09-2017 HIM IP Note OR Bottom Cementer Normal [facility] Plan of Careon 04-09-2017 HIM IP Note OR Bottom Cementer Normal [facility] HIM IP Note OR Bottom Cementer Normal [facility] Progress Noteon 04-09-2017 HIM IP Note OR Bottom Cementer Normal [facility] HIM IP Note OR Bottom Cementer Normal [facility] HIM IP Note OR Bottom Cementer Normal [facility] RSV Ag Detectionon 8 RSV Ag Detection Specimen Description .NASOPHARYNGEAL SWABSpecial Requests NOT REPORTEDDirect Exam Presumptive negative for the presence of RSV antigen. PCR testing to confirm this result is available upon request. Specimen will be saved in the laboratory for 7 days. Please call [phone] if PCR testing is indicated. Report Status FINAL 04/09/2017 Normal [facility] Comment on above: Performed By: #### C DP, CMPX, CRP, SED, GLYHGB ####[facility] [address] [place], [place] [id number] Sedimentation Rateon 018 Sedimentation Rate 80 mm High 0-10 [facility] Comment on above: Result Comment: [facility] [employer] [address] [place], [place] [address] [phone] Performed By: #### C DP, CMPX, CRP, SED, GLYHGB ####[facility] [address] [place], [place] [id number] XR FOOT RIGHT STANDARDon XR FOOT RIGHT [...] by:SAMMI Tellezigned by:Jesusita Mock MD04/09/17inal result Normal [facility] Vital Signs Date Time Vital Sign Value Performing Clinician Facility 02-08-2024 11:44-0500 Body height 180.34 cm Fidel Abbott MD Work Phone: [facility] 02-08-2024 11:44-0500 Body mass index (BMI) [Ratio] 31.4 kg/m2 Fidel Abbott MD Work Phone: [facility] 02-08-2024 11:44-0500 Body weight 102.05 kg Fidel Abbott MD Work Phone: [facility] 02-08-2024 10:51-0500 Body temperature 98.1 [degF] Fidel Abbott MD Work Phone: [facility] 02-08-2024 10:51-0500 Diastolic blood pressure 66 mm[Hg] Fdiel Abbott MD Work Phone: [facility] 02-08-2024 10:51-0500 Heart rate 64 /min Fidel Abbott MD Work Phone: [facility] 02-08-2024 10:51-0500 Respiratory rate 18 /min Fidel Abbott MD Work Phone: [facility] 02-08-2024 10:51-0500 Systolic blood pressure 125 mm[Hg] Fidel Abbott MD Work Phone: [facility] 01-20-2024 11:52-0400 Body height 180.3 cm Fidel Abbott MD Work Phone: [facility] 01-20-2024 11:52-0400 Body temperature 97.5 [degF] Fidel Abbott MD Work Phone: [facility] 01-20-2024 11:52-0400 Diastolic blood pressure 58 mm[Hg] Fidel Abbott MD Work Phone: [facility] 01-20-2024 11:52-0400 Heart rate 57 /min Fidel Abbott MD Work Phone: [facility] 01-20-2024 11:52-0400 Respiratory rate 20 /min Fidel Abbott MD Work Phone: [facility] 01-20-2024 11:52-0400 SaO2% (BldA) [Mass fraction] 99 % Fidel Abbott MD Work Phone: [facility] 01-20-2024 11:52-0400 Systolic blood pressure 130 mm[Hg] Fidel Abbott MD Work Phone: [facility] 06-04-2023 13:27-0500 Diastolic blood pressure 58 mm[Hg] MD Fidel Abbott Work Phone: [facility] 06-04-2023 13:27-0500 Heart rate 60 /min MD Fidel Abbott Work Phone: [facility] 06-04-2023 13:27-0500 Respiratory rate 12 /min MD Fidel Abbott Work Phone: [facility] 06-04-2023 13:27-0500 SaO2% (BldA) [Mass fraction] 98 % MD Fidel Abbott Work Phone: [facility] 06-04-2023 13:27-0500 Systolic blood pressure 135 mm[Hg] MD Fidel Abbott Work Phone: [facility] 06-04-2023 10:49-0500 Body height 180.34 cm MD Fidel Abbott Work Phone: [facility] 06-04-2023 10:49-0500 Body temperature 98 [degF] MD Fidel Abbott Work Phone: [facility] 06-04-2023 10:49-0500 Body weight 114.3 kg MD Fidel Abbott Work Phone: [facility] 05-06-2023 10:40-0500 Body height 177.8 cm Jonathan Moffett DPM Work Phone: [facility] 05-06-2023 10:40-0500 Body mass index (BMI) [Ratio] 35.87 kg/m2 Jonathan Moffett DPM Work Phone: [facility] 05-06-2023 10:40-0500 Body weight 113.4 kg Jonathan Moffett DPM Work Phone: [facility] 05-06-2023 10:40-0500 Diastolic blood pressure 80 mm[Hg] Jonathan Moffett DPM Work Phone: [facility] 05-06-2023 10:40-0500 Heart rate 79 /min Jonathan Moffett DPM Work Phone: [facility] 05-06-2023 10:40-0500 Systolic blood pressure 133 mm[Hg] Jonathan Moffett DPM Work Phone: [facility] 05-04-2023 13:06-0500 Body mass index (BMI) [Ratio] 34.8 kg/m2 MD Fidel Abbott Work Phone: [facility] 05-04-2023 12:48-0500 Body height 180.34 cm MD Fidel Abbott Work Phone: [facility] 05-04-2023 12:48-0500 Body weight 113.39 kg MD Fidel Abbott Work Phone: [facility] 05-04-2023 11:25-0500 Body temperature 97.3 [degF] MD Fidel Abbott Work Phone: [facility] 05-04-2023 11:25-0500 Diastolic blood pressure 78 mm[Hg] MD Fidel Abbott Work Phone: [facility] 05-04-2023 11:25-0500 Heart rate 64 /min MD Fidel Abbott Work Phone: [facility] 05-04-2023 11:25-0500 Respiratory rate 18 /min MD Fidel Abbott Work Phone: [facility] 05-04-2023 11:25-0500 Systolic blood pressure 177 mm[Hg] MD Fidel Abbott Work Phone: [facility] 11-09-2022 13:10-0400 Blood Pressure Location Jovanny VILLA [facility] 11-09-2022 13:10-0400 Diastolic blood pressure 72 mm[Hg] Jovanny VILLA [facility] 11-09-2022 13:10-0400 Heart rate 78 /min Jovanny VILLA [facility] 11-09-2022 13:10-0400 Systolic blood pressure 148 mm[Hg] Jovanny VILLA [facility] 06-26-2022 14:00-0400 Body temperature 97.81 [degF] Eli Pimentel MD Work Phone: [facility] [employer] 06-26-2022 14:00-0400 Diastolic blood pressure 62 mm[Hg] Eli Pimentel MD Work Phone: [facility] [employer] 06-26-2022 14:00-0400 Heart rate 70 /min Eli Pimentel MD Work Phone: [email or web address] [facility] 06-26-2022 14:00-0400 Respiratory rate 18 /min Eli Pimentel MD Work Phone: [employer] 06-26-2022 14:00-0400 SaO2% (BldA) [Mass fraction] 95 % Eli Pimentel MD Work Phone: [employer] [facility] 06-26-2022 14:00-0400 Systolic blood pressure 144 mm[Hg] Eli Pimentel MD Work Phone: [employer] [facility] 06-26-2022 05:30-0400 Body mass index (BMI) [Ratio] 34.28 kg/m2 Eli Pimentel MD Work Phone: [employer] [facility] 06-26-2022 05:30-0400 Body weight 111.49 kg Eli Pimentel MD Work Phone: [employer] 06-25-2022 04:54-0400 Body height 180.3 cm Eli Pimentel MD Work Phone: [facility] 06-02-2022 12:14-0500 Body height 172.72 cm MD Fidel Abbott Work Phone: [facility] 06-02-2022 12:14-0500 Body mass index (BMI) [Ratio] 41 kg/m2 MD Fidel Abbott Work Phone: [facility] 06-02-2022 12:14-0500 Body weight 122.46 kg MD Fidel Abbott Work Phone: [facility] 06-02-2022 09:52-0500 Body temperature 97 [degF] MD Fidel Abbott Work Phone: [facility] 06-02-2022 09:52-0500 Diastolic blood pressure 73 mm[Hg] MD Fidel Abbott Work Phone: [facility] 06-02-2022 09:52-0500 Heart rate 76 /min MD Fidel Abbott Work Phone: [facility] 06-02-2022 09:52-0500 Systolic blood pressure 155 mm[Hg] MD Fidel Abbott Work Phone: [facility] 03-03-2022 12:06-0500 Body height 180.34 cm MD Fidel Abbott Work Phone: [facility] 03-03-2022 12:06-0500 Body mass index (BMI) [Ratio] 34.8 kg/m2 MD Fidel Abbott Work Phone: [facility] 03-03-2022 12:06-0500 Body weight 113.39 kg MD Fidel Abbott Work Phone: [facility] 03-03-2022 11:37-0500 Body temperature 97.7 [degF] MD Fidel Abbott Work Phone: [facility] 03-03-2022 11:37-0500 Diastolic blood pressure 56 mm[Hg] MD Fidel Abbott Work Phone: [facility] 03-03-2022 11:37-0500 Heart rate 68 /min MD Fidel Abbott Work Phone: [facility] 03-03-2022 11:37-0500 Respiratory rate 18 /min MD Fidel Abbott Work Phone: [facility] 03-03-2022 11:37-0500 Systolic blood pressure 122 mm[Hg] MD Fidel Abbott Work Phone: [facility] Encounters Encounter Date Encounter Type Care Provider Facility Start: 02-14-2024 End: 02-14-2024 Clinisync Result Encounter Generic External Data Provider [facility] External Department Unsolicited Start: 02-14-2024 End: 02-14-2024 Clinisync Result Encounter Generic External Data Provider [facility] External Department Unsolicited Start: 02-08-2024 Registered Recurring Fidel dubose MD Work Phone: [facility] Work Phone: Start: 02-08-2024 End: 02-08-2024 Patient encounter procedure Fidel Abbott MD Work Phone: [facility] [place] Work Phone: Start: 02-08-2024 End: 02-08-2024 ambulatory Fidel Abbott MD Work Phone: [facility] Work Phone: Start: 01-20-2024 End: 01-20-2024 Bamboo flowsheet Fidel Abbott MD Work Phone: [facility] Start: 01-20-2024 End: 01-20-2024 Bamboo flowsheet Fidel Abbott MD Work Phone: [facility] Start: 01-20-2024 End: 01-20-2024 Office outpatient visit 15 minutes Fidel Abbott MD Work Phone: [facility] Comment on above: Urticaria (Primary D x) Start: 01-20-2024 End: 01-20-2024 ambulatory FIDEL ABOBTT Not Available Start: 01-17-2024 End: 01-17-2024 Orders Only Iraj Valdivia MD Work Phone: [facility] Comment on above: Stage 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 (CMS-HCC) (Primary Dx) Start: 01-12-2024 End: 01-12-2024 Telephone encounter Scanning Provider External [facility] Start: 11-18-2023 End: 11-18-2023 ambulatory FIDEL ABBOTT Not Available Start: 11-12-2023 End: 11-12-2023 ambulatory Jovanny VILLA Facility:[facility] Start: 11-12-2023 End: 11-12-2023 Patient encounter procedure Jovanny VILLA [facility] Start: 11-08-2023 End: 11-08-2023 ambulatory Jovanny VILLA Facility:[id number] Start: 10-11-2023 End: 10-11-2023 ambulatory [facility] Start: 10-04-2023 ambulatory Jovanny VILLA Facili ty:[id number] Start: 07-08-2023 End: 07-08-2023 ambulatory MD Fidel Abbott Work Phone: [facility] Work Phone: Start: 07-08-2023 End: 07-08-2023 Departed Referred MD Fidel Abbott Work Phone: [facility] Start: 06-10-2023 End: 06-10-2023 ambulatory JONATHAN MOFFETT Not Available Start: 06-04-2023 End: 06-04-2023 Admission to same day surgery center MD Fidel Abbott Work Phone: [facility] [place] Start: 06-04-2023 End: 06-04-2023 ambulatory Jonathan Moffett Facility:[facility] Start: 06-03-2023 End: 06-03-2023 ambulatory JONATHAN MOFFETT [...] underlying condition with diabetic polyneuropathy, unspecified whether exterminator helper insulin use (CMS/HCC); Acute complete paraplegia (CMS/HCC); Acute osteomyelitis of left fibula (CMS/HCC); Foot ulcer, right, with fat layer exposed (CMS/HCC); Venous insufficiency Start: 05-04-2023 End: 05-04-2023 Discharged Recurring MD Fidel Abbott Work Phone: [facility] Work Phone: Start: 05-04-2023 End: 05-04-2023 ambulatory MD Fidel Abbott Work Phone: [facility] Work Phone: Start: 04-29-2023 End: 04-29-2023 [...] Start: 02-23-2023 End: 02-23-2023 ambulatory Cathy Brar Facility:[facility] Start: 01-19-2023 End: 01-19-2023 ambulatory Jovanny VILLA Facility:[facility] Start: 01-11-2023 End: 01-11-2023 ambulatory Jovanny VILLA Facility:[id number] Start: 11-09-2022 End: 11-09-2022 Patient encounter procedure Jovanny VILLA [facility] Start: 09-25-2022 End: 09-26-2022 ambulatory FIDEL ABBOTT [facility] Start: 09-18-2022 End: 09-21-2022 ambulatory ASHLEE ERWIN [facility] Start: 09-18-2022 End: 09-20-2022 Subsequent hospital visit by physician [facility] Ultrasound Room 2 [facility] Ultrasound Comment on above: Cauda equina syndrom e (HCC); Neurogenic bladder; Urinary retention; Urinary incontinence without sensory awareness Start: 2022 End: 2022 ambulatory ANGELES NAGY [facility] Start: 07-02-2022 End: 07-03-2022 [facility] Start: 07-02-2022 End: 07-02-2022 Subsequent hospital visit by physician Fidel Abbott MD Work Phone: [facility] Laboratory Comment on above: Acute kidney injury (HCC); Iron deficiency anemia, unspecified iron deficiency anemia type Start: 06-22-2022 End: 06-26-2022 Evaluation and management of inpatient MATIAS DOSS [facility] Start: 06-22-2022 End: 06-26-2022 Evaluation and management of inpatient Eli Pimentel MD Work Phone: [facility] Comment on above: Acute kidney injury (HCC) (Primary Dx); Hyperkalemia; Iron deficiency anemia, unspecified iron deficiency anemia type Start: 06-22-2022 End: 06-22-2022 ambulatory [facility]ES NAGY [facility] Start: 06-22-2022 End: 06-22-2022 Subsequent hospital visit by physician Fidel Abbott MD Work Phone: [facility] EKG Comment on above: Neurogenic bladder Start: 06-02-2022 End: 06-02-2022 ambulatory MD Fidel Abbott Work Phone: [facility] Work Phone: Start: 06-02-2022 End: 06-02-2022 Discharged Recurring MD Fidel Abbott Work Phone: [facility] Work Phone: Start: 03-14-2022 End: 03-15-[address] CATHY BRAR Facility:[facility] Start: 03-03-2022 End: 03-03-2022 ambulatory MD Fidel Abbtot Work Phone: [facility] Work Phone: Start: 03-03-2022 End: 03-03-2022 Discharged Recurring MD Fidel Abbott Work Phone: [facility] Work Phone: Start: 02-26-2022 End: 02-27-[address] CATHY BRAR Facility:[facility] Start: 05-30-2021 End: 05-31-[address] FIDEL ABBOTT Facility:[facility] Start: 04-09-2017 End: 04-13-2017 Evaluation and management of inpatient MICHAELA ONTIVEROS [facility] Procedures Date Procedure Procedure Detail Performing Clinician Start: 02-14-2024 ALL SED RATE Generic External Data Provider Start: 06-04-2023 Investigation of transfusion reaction MD Fidel Abbott Work Phone: Start: 06-04-2023 Debridement MD Fidel Abbott Work Phone: Start: 10-08-2022 Cystourethroscopy with dilation of urethral stricture Jovanny VILLA Start: 09-18-2022 Us retroperitoneal real time w/image complete Ashlee W Mirna TECHNOLOGY OFFICER - ENVIRONMENTAL FIELD TEAM MEMBER Work Phone: Start: 2022 Optical urethrotomy Jovanny VILLA Start: 07-02-2022 Basic metabolic panel calcium total Hoda jose Mondragon TECHNOLOGY OFFICER - [facility] Work Phone: Start: 06-26-2022 End: 06-26-2022 COLONOSCOPY [...] actv qual feces 1 deter Shelly Mondragon TECHNOLOGY OFFICER - ENVIRONMENTAL FIELD TEAM MEMBER Work Phone: Start: 06-25-2022 Cul bact xcpt [...] of packed red blood cells Shelly Mondragon TECHNOLOGY OFFICER - [facility] Work Phone: Start: 06-24-2022 Echo tthrc r-t 2d w/wom-mode compl spec&colr d [facility] ENVIRONMENTAL FIELD TEAM MEMBER Work Phone: Start: 06-24-2022 Blood typing serologic abo Shelly Mondragon TECHNOLOGY OFFICER - ENVIRONMENTAL FIELD TEAM MEMBER Work Phone: Start: 06-24-2022 GLUCOSE, WHOLE BLOOD Matias Doss MD Work Phone: Start: 06-24-2022 End: 06-24-2022 Prothrombin time Shelly Mondragon TECHNOLOGY OFFICER - ENVIRONMENTAL FIELD TEAM MEMBER Work Phone: Start: 06-24-2022 VITAMIN B12 & FOLATE Shelly Mondragon TECHNOLOGY OFFICER - ENVIRONMENTAL FIELD TEAM MEMBER Work Phone: Start: 06-24-2022 End: 06-25-2022 Rhythm [...] ankle complete minimum 3 views Shelly Mondragon TECHNOLOGY OFFICER - ENVIRONMENTAL FIELD TEAM MEMBER Work Phone: Start: 06-23-2022 Lipid panel Zoila [...] 06-26-2032 Screening for malignant neoplasm of colon [facility] Start: 10-10-2024 Adult BMI Screening Adult BMI Screening [facility] Start: 10-10-2024 Tobacco Screening Tobacco Screening [facility] Start: 05-22-2024 End: 05-22-2024 Patient encounter procedure 05/22/2024 1:15 PM EST Office Visit [facility] [address] [place] [phone] Fidel Abbott MD [address] [place] [phone] [facility] Start: 04-13-2024 End: 04-13-2024 Patient encounter procedure 04/13/2024 2:00 PM EST Office Visit N [facility] [place] [address] [place] [phone] Iraj Valdivia MD [address] [place] [address] [facility] Start: 01-20-2024 End: 01-20-2024 Patient encounter procedure 01/20/2024 11:45 AM EDT Office Visit [facility] [address] [place] [phone] Fidel Abbott MD [address] [place] [phone] Arrived [facility] Comment on above: Arrived Start: 11-28-2023 Influenza vaccination [facility] Start: 10-18-2023 End: 10-18-2023 Patient encounter procedure 10/18/2023 10:00 AM EDT Office Visit [facility] [address] [place] [address] Fidel Abbott MD [address] [place] [address] [facility] Start: 09-19-2023 GFR test (Diabetes, CKD 3-4, OR last GFR 15-59) GFR test (Diabetes, CKD 3-4, OR last GFR 15-59) [facility] [employer] Start: 09-19-2023 Urine screening for protein Diabetes: Urine Protein Screening [facility] Start: 07-08-2023 Hemoglobin A1c measurement A1C test (Diabetic or Prediabetic) [facility] [employer] Start: 07-03-2023 GFR test (Diabetes, CKD 3-4, OR last GFR 15-59) GFR test (Diabetes, CKD 3-4, OR last GFR 15-59) [facility] [employer] Start: 06-27-2023 Screening for malignant neoplasm of colon [facility] Start: 06-26-2023 GFR test (Diabetes, CKD 3-4, OR last GFR 15-59) GFR test (Diabetes, CKD 3-4, OR last GFR 15-59) [facility] [employer] Start: 06-26-2023 Screening for malignant neoplasm of colon [facility] [employer] Start: 06-24-2023 Lipid panel Lipids [facility] Start: 06-23-2023 GFR test (Diabetes, CKD 3-4, OR last GFR 15-59) GFR test (Diabetes, CKD 3-4, OR last GFR 15-59) [employer] Start: 06-04-2023 [facility] Start: 05-20-2023 End: 05-20-2023 Patient encounter procedure 05/20/2023 3:10 PM EST Office Visit [facility] [address] [facility] [address] [place] [phone] Jonathan Moffett DPM [address] [facility] [address] [place] [address] [facility] Start: 05-06-2023 End: 05-06-2023 Patient encounter procedure 05/06/2023 10:20 AM EST Office Visit [facility] [address] [facility] [address] [place] [phone] Jonathan Moffett DPM [address] [facility] [address] [place] [address] [facility] Start: 10-27-2022 Influenza vaccination Flu vaccine (Season Ended) [facility] Start: 10-06-2022 Hemoglobin A1c measurement Diabetes: Hemoglobin A1C [facility] Start: 09-25-2022 End: 09-25-2022 Patient encounter procedure 09/25/2022 Office Visit [facility] Start: 07-08-2022 End: 07-08-2022 Patient encounter procedure 07/08/2022 Office Visit [facility] Start: 2022 End: 2022 Admission to same day surgery center 2022 Surgery IP Unit Angeles Nagy MD [address] [facility], [address] [place] [id number] CYSTOSCOPY TRANSURETHROTOMY- DVIU WITH POSS TRANSURETHRAL RESECTION OF BLADDER TUMOR [facility] Comment on above: CYSTOSCOPY TRANSURETHROTOMY- DVIU WITH P OSS TRANSURETHRAL RESECTION OF BLADDER TUMOR Start: 2022 End: 2022 Cystourethroscopy w/internal urethrotomy male CYSTOSCOPY TRANSURETHROTOMY Cauda equina syndrome (HCC) 2022 8:30 AM EDT [facility] Start: 2022 Subsequent hospital visit by physician 2022 Hospital Encounter IP Unit Angeles Nagy MD [address] [facility], [address] [place] [address] [facility] Start: 07-01-2022 End: 06-27-2023 Basic metabolic 2000 panel - Serum or Plasma Basic Metabolic Panel Lab Routine Acute kidney injury (HCC) Expected: 07/01/2022, Expires: 06/27/2023 Fresh ! [facility] [employer] Phone: Comment on above: Expected: 07/01/2022, Expires: 4 Start: 07-01-2022 End: 06-27-2023 CBC W Auto Differential panel - Blood CBC with Auto Differential Lab Routine Acute kidney injury (HCC) Iron deficiency anemia, unspecified iron deficiency anemia type Expected: 07/01/2022, Expires: 06/27/2023 Fresh ! [facility] [employer] Phone: Comment on above: Expected: 07/01/2022, Expires: 4 Start: 06-22-2022 Annual Wellness Visit (AWV) Annual Wellness Visit (AWV) [facility] [employer] Start: 10-27-2021 Influenza vaccination Flu vaccine (#1) [facility] [employer] Start: 04-09-2018 Diabetic foot examination Diabetic foot exam [email or web address] [employer] Start: 04-09-2018 Hemoglobin A1c measurement A1C test (Diabetic or Prediabetic) [facility] [employer] Start: 04-25-2016 Lipid panel Lipids [facility] [employer] Start: 04-24-2016 Urine screening for protein Diabetic Alb to Cr ratio (uACR) test [facility] [employer] Start: 07-08-2011 Administration of varicella zoster vaccine Zoster (Shingles) Vaccine (1 of 2) [facility] Start: 07-08-2011 Shingles vaccine (1 of 2) Shingles vaccine (1 of 2) [facility] [employer] Start: 2006 Screening for malignant neoplasm of colon [facility] [employer] Start: 1980 DTaP,Tdap and Td Vaccines (1 - Tdap) DTaP,Tdap and Td Vaccines (1 - Tdap) [facility] Start: 1980 DTaP/Tdap/Td vaccine (1 - Tdap) DTaP/Tdap/Td vaccine (1 - Tdap) [facility] [employer] Start: 1980 Urine screening for protein Diabetes: Urine Protein Screening [facility] Start: 07-08-1979 Adult BMI Follow Up Plan Adult BMI Follow Up Plan [facility] Start: 07-08-1979 Glaucoma screening Diabetic retinal exam [facility] Start: 07-08-1979 Hepatitis C screening Hepatitis C screen [email or web address] Start: 1976 HIV screening HIV screen [email or web address] Start: 1973 Depression Monitoring Depression Monitoring [facility] Start: 1973 Depression Screening Depression Screening [facility] Start: 07-08-1971 Glaucoma screening Diabetes: Retinopathy Screening [facility] Start: 07-08-1967 Pneumococcal 0-64 years Vaccine (1 - PCV) Pneumococcal 0-64 years Vaccine (1 - PCV) [email or web address] Start: 01-06-1962 COVID-19 Vaccine (#1) COVID-19 Vaccine (#1) [facility] Start: 1961 Screening for malignant neoplasm of colon [facility] End: 01-16-2025 Basic metabolic 2000 panel - Serum or Plasma Basic Metabolic Panel Lab Routine Stage 3a chronic kidney disease ([facility]) 1 Occurrences starting 01/17/2024 until 01/16/2025 PHN [facility] Work Phone: Comment on above: 1 Occurrences starting 01/17/2024 until 01/16/2025 End: 01-16-2025 CBC panel - Blood by Automated count CBC without diff Lab Routine Stage 3a chronic kidney disease ([facility]) 1 Occurrences starting 01/17/2024 until 01/16/2025 [facility] Comment on above: 1 Occurrences starting 01/17/2024 until 01/16/2025 End: 06-27-2022 CBC W Auto Differential panel - Blood CBC auto differential Lab Routine Daily for 5 Days starting 06/23/2022 until 06/27/2022, 4 completed [employer] Work Phone: Comment on above: Daily for 5 Days starting 06/23/2022 unt il 06/27/2022, 4 completed Culture, Wound Aerob ic Only Culture, Wound Aerobic Only Microbiology [employer] 06/25/2022 12:20 PM EDT [employer] Work Phone: End: 06-25-2022 Hemoglobin and Hematocrit Hemoglobin and Hematocrit Lab Routine Post Transfusion Post Transfusion Post Transfustion until discontinued starting 06/24/2022, 1 completed [employer] Phone: Comment on above: Post Transfusion Post Transfusion Post T ransfustion until discontinued starting 06/24/2022, 1 completed End: 01-16-2025 Magnesium [Mass/volume] in Serum or Plasma Magnesium Lab Routine Stage 3a chronic kidney disease ([facility]) 1 Occurrences starting 01/17/2024 until 01/16/2025 [employer] Comment on above: 1 Occurrences starting 01/17/2024 until 01/16/2025 Oxygen therapy [[facility] Data Set] Initiate Oxygen Therapy Protocol Respiratory Care Routine Daily until discontinued starting 06/22/2022 [employer] Phone: Comment on above: Daily until discontinued starting 2022 End: 01-16-2025 Parathyroid Hormone, intact Parathyroid Hormone, intact Lab Routine Stage 3a chronic kidney disease ([facility]) 1 Occurrences starting 01/17/2024 until 01/16/2025 [employer] Comment on above: 1 Occurrences starting 01/17/2024 until 01/16/2025 End: 01-16-2025 Phosphate [Mass/volume] in Serum or Plasma Phosphorus Lab Routine Stage 3a chronic kidney disease ([facility]) 1 Occurrences starting 01/17/2024 until 01/16/2025 [employer] Comment on above: 1 Occurrences starting 01/17/2024 until 01/16/2025 End: 06-24-2022 PREPARE RBC (CROSSMATCH), 1 Units PREPARE RBC (CROSSMATCH), 1 Units Blood Bank Routine Once for 1 Occurrences starting 06/24/2022 until 06/24/2022 [employer] Phone: Comment on above: Once for 1 Occurrences starting 06/25/19 until 06/24/2022 End: 01-16-2025 Protein creat ratio Protein creat ratio Lab Routine Stage 3a chronic kidney disease ([facility]) 1 Occurrences starting 01/17/2024 until 01/16/2025 [employer] Comment on above: 1 Occurrences starting 01/17/2024 until 01/16/2025 End: 06-25-2022 Surgical Pathology Surgical Pathology Lab Routine One Time for 1 Occurrences starting 06/25/2022 until 06/25/2022 [employer] Phone: Comment on above: One Time for 1 Occurrences starting 05/29 until 06/25/2022 Surgical Pathology Surgical Path ology Lab Routine Hyperkalemia Release Upon Ordering for 1 Occurrences starting 06/26/2022 [employer] Phone: Comment on above: Release Upon Ordering for 1 Occurrences starting 06/26/2022 End: 06-25-2022 SURGICAL PATHOLOGY REPORT SURGICAL PATHOLOGY REPORT Lab Routine Once for 1 Occurrences starting 06/25/2022 until 06/25/2022 [employer] Phone: Comment on above: Once for 1 Occurrences starting 06/26/19 until 06/25/2022 End: 06-26-2022 SURGICAL PATHOLOGY REPORT SURGICAL PATHOLOGY REPORT Lab Routine Once for 1 Occurrences starting 06/26/2022 until 06/26/2022 [employer] Phone: Comment on above: Once for 1 Occurrences starting 06/27/19 until 06/26/2022 End: 01-16-2025 Urinalysis Urinalysis Lab Routine Stage 3a chronic kidney disease ([facility]) 1 Occurrences starting 01/17/2024 until 01/16/2025 [employer] Comment on above: 1 Occurrences starting 01/17/2024 until 01/16/2025 End: 01-16-2025 Vitamin D 25 hydroxy Vitamin D 25 hydroxy Lab Routine Stage 3a chronic kidney disease ([facility]) 1 Occurrences starting 01/17/2024 until 01/16/2025 [employer] Comment on above: 1 Occurrences starting 01/17/2024 until 01/16/2025 Immunizations Immunization Date Immunization Notes Care Provider [facility] 02-11-2023 influenza, injectabl e, quadrivalent, preservative free MD Fidel Abbott Work Phone: [facility] 02-11-2023 influenza virus vaccine, unspecified formulation Scanning External [email or web address] [facility] 04-10-2017 influenza virus vaccine, unspecified formulation Jovannyfior VILLA [facility] Comment on above: Result Comment: 2022: VIS DATE: 11/02/2014 04-10-2017 influenza, injectabl e, quadrivalent, preservative free Fidel Abbott MD Work Phone: [facility] 01-28-2016 Influenza Vaccine, unspecified formulation Fidel Abbott MD Work Phone: [facility] 01-01-2015 influenza virus vaccine, unspecified formulation Jovanny VILLA [facility] 01-01-2015 influenza, seasonal, injectable MD Fidel Abbott Work Phone: [facility] 01-10-2014 influenza virus vaccine, unspecified formulation Jovanny VILLA [facility] Payers Date Payer Category Payer [employer] [place] [facility] - PPO ANTHEM [id number] 2022 Self-pay [id number] 2021 [employer] [place] [employer] [facility] BCBS [id number] 2021 Unknown BCBS BCBS xxxxxx [id number] 2021-Present [phone] [address] [place] [address] [id number]. [id number] 2015 Unknown [id number] 2006 Medicare [id number]. [id number] 1961 Unknown [id number] 2.16.840.1.398339.3.579.2. 593 1961 Unknown [id number] 2.16.840.1.797008.3.579.2. 593 1961 Unknown [id number] 2.16.840.1.577363.3.579.2. 593 1961 Unknown [id number] 2.16.840.1.362886.3.579.2. 173 1961 Unknown [id number] 2.16.840.1.033380.3.579.2. 173 1961 Unknown [id number] 2.16.840.1.689400.3.579.2. 173 1961 Unknown [id number] 2.16.840.1.919830.3.579.2. 173 1961 Unknown [id number] 2.16.840.1.373711.3.579.2. 173 1961 Unknown [id number] 2.16.840.1.212711.3.579.2. 173 1961 Unknown [id number] 2.16.840.1.017802.3.579.2. 173 1961 Unknown [id number] 2.16.840.1.514920.3.579.2. 173 1961 Unknown [id number] 2.16.840.1.048495.3.579.2. 1286 1961 Unknown [id number] 2.16.840.1.860934.3.579.2. 1286 1961 Unknown [id number] 2.16.840.1.708621.3.579.2. 727 1961 Unknown [id number] 2.16.840.1.267480.3.579.2. 727 1961 Unknown [id number] 2.16.840.1.128929.3.579.2. 727 1961 Unknown [id number] 2.16.840.1.765719.3.579.2. 727 1961 Unknown [id number] 2.16.840.1.493549.3.579.2. 1259 1961 Unknown [id number] 2.16.840.1.008442.3.579.2. 1259 1961 Unknown [id number] 2.16.840.1.645533.3.579.2. 1259 1961 Unknown [id number] 2.16.840.1.964239.3.579.2. 1259 1961 Unknown [id number] 2.16.840.1.213415.3.579.2. 1259 1961 Unknown [id number] [id number]. 1259 1960 Unknown [id number] 2.16.840.1.616978.3.579.2. 1258 1960 Unknown [id number] 2.16.840.1.048487.3.579.2. 1258 1960 Unknown [id number] 2.16.840.1.202474.3.579.2. 1258 1960 Unknown [id number] 2.16.840.1.078133.3.579.2. 1258 1960 Unknown [id number] 2.16.840.1.518614.3.579.2. 1258 1960 Unknown [id number] 2.16.840.1.135396.3.579.2. 1258 1960 Unknown [id number] 2.16.840.1.355399.3.579.2. 1258 1960 Unknown [id number] 2.840.1.808075.3.579.2. 9 1958 Medicare [id number] 1958 Unknown [id number] 1959 Unknown [id number] Unknown [id number] 2.16.840.1.356583.3.579.2. 531 Unknown [id number] 2.840.1.931478.3.579.2. 531 Unknown [id number] 2.16840.1.824837.3.579.2. 531 Unknown [id number] 2.16840.1.531228.3.579.2. 531 Unknown [id number] 2.16840.1.129705.3.579.2. 531 Unknown [id number] 2.16840.1.958596.3.579.2. 531 Social History Date Type Detail Facility Start: 01-27-2022 End: 02-23-2023 Tobacco smoking status NHIS Never smoked tobacco (finding) [facility] Start: 1960 Sex Assigned At Male [facility] Start: 06-22-2022 End: 02-23-2023 Tobacco use and exposure Smokeless tobacco non-user [employer] Phone: Start: 06-22-2022 End: 07-14-2022 Alcohol intake Current non-drinker of alcohol (finding) [employer] Phone: Start: 1960 Sex Assigned At Not on file B ON [employer] Phone: Start: 06-12-2022 End: 06-22-2022 Exposure to SARS-CoV-2 (event) Not sure [employer] Start: 06-23-2022 History SDOH Alcohol Frequency 1 [employer] Phone: Start: 06-23-2022 History SDOH Alcohol Std Drinks 0 [employer] Phone: Tobacco smoking status Never [facility] Start: 04-29-2023 End: 10-17-2023 Sex Assigned At Male [facility] Start: 04-29-2023 End: 01-20-2024 Alcohol intake Lifetime non-drinker (finding) [facility] Start: 04-29-2023 End: 10-17-2023 History of Social function [facility] Start: 11-01-2014 End: 02-09-2024 Sex Male (finding) [facility] Do you belong to any clubs or organizations such as oriental orthodox groups, unions, fraternal or athletic groups, or [...] 06-04-2023 Wound debridement Collagen wound matrix dressing ()[id number] FDA Start: 06-04-2023 Wound debridement Collagen wound matrix dressing ()[id number] FDA Start: 06-04-2023 Wound debridement EPIFIX MESH SH EET 4X4.5CM FDA Start: 06-04-2023 Wound debridement EPIFIX MESH SH EET 4X4.5CM FDA Start: 06-04-2023 Amputation, toe Collagen wound matrix dressing ()[id number] FDA Start: 02-10-2023 Graft Subst Resorbable Mini 5cc [id number] Start: 12-25-2016 Comment on above: Description: tobramy icin recostituted with 10ml normal saline ref # [id number] exp 07/27/2018 lot # [id number] Goals Date Patient Goal Desired Activity /State Functional Status Date Assessment Result Facility 11-09-2022 Functional Status N/A [facility] Clinical Notes 07-29-2021 to 02-08-2024 Note Date [...] spinal cord injury chronic February 07 10:48am [facility] Work Phone: 1(530) 917-763410-24-2024 History of Present illness Narrative* Fidel Abbott [...] and use hydroxyzine PRN. documented in this encounterFreeman Orthopaedics & Sports [id number] Evaluation note* Diagnosis Stage 3a chronic kidney disease ([facility]-HCC)- Primary documented in this encounter [facility] [employer] [id number] Miscellaneous Notes* Telephone Encounter - Fatemeh Cain - 01/12/2024 9:03 AM EDT LM to schedule new pt appt. [facility] Tele[facility] encounter Note* Telephone Encounter - Fatemehivan Cain - 01/12/2024 9:03 AM EDT LM to schedule new pt appt. [facility]02-15-2024 Telephone encounter Note* Telephone Encounter - Sandhya Velasquez RN - 05/13/2023 3:00 PM EST Patient called to inquire about the antibiotic that was supposed to be sent after his 05/06 visit. Can you resend? Thank you! [facility] [id number] Miscellaneous Notes* Telephone Encounter - Sandhya Velasquez RN - 05/13/2023 3:00 PM EST Patient called to inquire about the antibiotic that was supposed to be sent after his 05/06 visit. Can you resend? Thank you! documented in this encounterFreeman Orthopaedics & Sports [id number] History of Present illness Narrative* Jonathan Moffett [...] unable to go to wound care at [facility] Patient also has Integra wound graft to [...] health. Patient currently going at [facility] for decubitus ulcer Patient still awaits MRI approval as had to be resubmitted due to need for new x-ray on previous visit in awaits MRI at [facility] . Referral has been sent to [facility] wound center with attempt [...] region for possible osteomyelitis to fibula at [facility] ASSESSMENT 12 weeks s/p left 4th and 5th ray amputation with incision and drainage and partial closure with single lobe flap Type 2 diabetic with paraplegia 1. Ulcer of left ankle, with necrosis of bone (HCC) (CMS/HCC) 2. Diabetes mellitus due to underlying condition with diabetic polyneuropathy, unspecified whether exterminator helper insulin use (CMS/HCC) 3. Acute complete paraplegia [...] antibiotics Patient to follow up with [facility] for decubitus ulcer and instructions given to contact [facility] for follow-up.. Skin flap area of ulceration [...] MRI Jonathan Moffett DPM documented in this encounterFreeman Orthopaedics & Sports [id number] Progress note Author Cathy Brar [facility] May 04, 2023 1:07pm Note Date/Time May 04, 2023 1 2:48pm [facility] [address] [place] [address] Wound Center Provider Note Signed Patient: Ganga Stinson MR#: [id number] : 1960 Acct:[id number] Age/Sex: 62 / M Copies to: MD [...] did wound start?: years Mode of Arrival/ Truck Dispatcher: Personal vehicle Assistive Device Used Today: Wheelchair [...] Itching Wound/Ulcer Right Lateral Ankle: Bed Appearance: Cale and Yellow Percent of Wound Bed Granulated/Red: [...] No Odor Right Medial Foot: Bed Appearance: Cale and Yellow Percent of Wound Bed Granulated/Red: 50 Percent of Devitalized: 50 Length (cm): 1.0 Width (cm): 1.0 Depth (cm): 0.3 CM Sq: 1.000 Surrounding Tissue Appearance: Hyperpigmented Surrounding Tissue Temp: Warm Drainage Amount: Moderate Drainage Description: Serosanguineous Drainage Odor: No Odor Sacrum: Bed Appearance: Beefy Red, Cale and Yellow Percent of Wound Bed Granulated/Red: 90 Percent of Devitalized: 10 Length (cm): 2.9 Width (cm): 1.5 Depth (cm): 2.5 CM Sq: 4.350 Undermining Position: 360 deepest at 9:00 Undermining Depth: 4.0 Surrounding Tissue Appearance: Hyperpigmented, Macerated and Callous Surrounding Tissue Temp: Warm Drainage Amount: Large Drainage Description: Serosanguineous Drainage Odor: No Odor Right Ischium: Bed Appearance: Beefy Red, Cale and Yellow Percent of Wound Bed Granulated/Red: 90 Percent of Devitalized: 10 Length (cm): 5.3 Width (cm): 7.5 Depth (cm): 4.0 CM Sq: 39.750 Surrounding Tissue Appearance: Cale, Macerated and Callous Surrounding Tissue Temp: Warm Drainage Amount: Large Drainage Description: Serosanguineous Drainage Odor: No Odor Left Ischium: Bed Appearance: Beefy Red and Cale Percent of Wound Bed Granulated/Red: 100 Percent [...] underlying condition with diabetic neuropathy,unspecified; Z79.4 - continuous churn buttermaker (current) use of insulin (5) Foot ulcer [...] signed by MD Cathy Brar> 05/04/23 1307 [facility] Work Phone: 1(290) 927-707108-14-2023 Hospital Discharge instructions Patient Education 11/09/2022 14:08:53 [...] Follow these instructions at home: Medicines Take dufc-hez-frspykq and prescription medicines only as told by [...] provider. Document Revised: 12/04/2020 Document Reviewed: 12/04/2020 AOTMP Patient Education 2022 Livevol. Follow Up Care 10/13/2022 11:18:02 With:ALLEN NAZARIO, Jovanny Christie, URL Address: [facility] [address] , [place] [address]- [phone] When: Unknown Comments:sched cysto [facility] [place] [facility] 03-31-2023 History of Present illness [...] 06/26/2022 12:01 PM EDT Physical Therapy Facility/Department: [facility] Daily Treatment Note NAME: [...] 06/26/2022 12:00 PM EDT Occupational Therapy Facility/Department: [facility] Daily Treatment Note NAME: [...] 06/26/2022 9:35 AM EDT [facility] via cart with RN. Bedside [...] Crockett RN - 06/26/2022 3:00 AM EDT Veneer Puller at bedside for wound dressing change- pt incontinent of bowels. See flow sheet for details. * Panchito Crockett RN - 06/26/2022 1:30 AM EDT Pt incontinent of stool. Veneer Puller at bedside for wound change dressing per order- see flow sheet for details. * Panchito Crockett RN - 06/26/2022 12:50 AM EDT Patient at bedside for reassessment and vitals- see flow sheet for details. Pt remains alert and oriented c4-calm and cooperative. GoLYTELY at bedside and screenplay writer encourages patient to consume fluid- pt validates understanding. Patient currently denying pain and discomfort. Denying any additional needs, call light placed within reach, bed in lowest position. Veneer Puller encourages patient to call out for assistance. Will continue to monitor. * Panchito Crockett RN - 06/26/2022 12:45 AM EDT Veneer Puller at bedside- pt incontinent of stool- wound dressing changed per order. See flow sheet. * Panchito Crockett RN - 06/25/2022 10:05 PM EDT Veneer Puller at bedside to for wound dressing change per order. See MAR for details. * Eloise Lopez PTA - 06/25/2022 3:56 PM EDT Physical Therapy Facility/Department: [facility] Daily Treatment Note NAME: [...] bed. Supine BLE PROM exercises in all [id number] ea. Seated EOB AROM in LAQ 2x [...] never been a smoker. He saw a central office installer at [facility] 2 years ago in 2020. [...] himself. He follows with wound clinic at [facility]. Mr. Stinson also denied any current or recent chest pain, abdominal pain, bleeding problems, problems with his medications or any other concerns at this time. Past Medical History: Diagnosis Date Abnormal EKG 06/23/2022 Acute kidney injury superimposed on CKD (HCC) 06/23/2022 Cauda equina syndrome ([facility]) 2004 Depression Hypertension MRSA (methicillin [...] HISTORY Right 04/10/2017 I&D rt foot/leg wounds OR I&D BELOW FASCIA FOOT 1 BURSAL SPACE Right 12/25/2016 FOOT DEBRIDEMENT INCISION AND DRAINAGE, 5TH DIGIT, PARTIAL AMB. PLACEMENT OF ANTIBOTIC BEADS performed by Gabriel Haile DPM at [facility] OR OR I&D BELOW FASCIA FOOT 1 BURSAL SPACE Right 04/10/2017 RIGHT ANKLE AND RIGHT HEEL DEBRIDEMENT INCISION AND DRAINAGE WITH CULTURES SENT performed by William Jimenez MD at [facility] OR OR OFFICE/OUTPT VISIT,PROCEDURE ONLY Right 06/14/2017 FOOT DEBRIDEMENT INCISION AND DRAINAGE-ANKLE INCLUDING BONE BIOPSY performed by Ro Husseint [facility] OR TOE AMPUTATION Right 12/25/2016 right fifth toe amputation with I&D, ATB beads per Dr. Haile [employer] [place] filter Social History: Social History Tobacco Use [...] Pressure injury of right ankle, stage 4 ([facility]) 06/24/2022 Open wound of right ankle 12/30/2016 Mixed hyperlipidemia 04/25/2015 Hyponatremia 04/25/2015 Diabetes mellitus ([facility]) 07/02/2011 Paraplegia ([facility]) 03/12/2011 MSSA (methicillin susceptible Staphylococcus aureus) infection 05/28/2017 Bacterial infection 02/17/2017 Enterococcus faecalis infection 12/28/2016 Skin ulcer of right heel with fat layer exposed ([facility]) 09/02/2016 Skin ulcer of right 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 ([facility]) 04/25/2015 Decubitus ulcer of coccygeal region 07/19/2013 Cauda equina syndrome ([facility]) 12/09/2011 Open wound of knee, leg (except thigh), and ankle, complicated 02/25/2011 Acute kidney injury superimposed on CKD ([facility]) 06/23/2022 Abnormal EKG 06/23/2022 Neurogenic bladder 06/23/2022 Hyperkalemia 06/22/2022 Osteomyelitis of ankle or foot, right, acute ([facility]) Decubitus ulcer of coccygeal region, stage 4 ([facility]) 04/09/2017 Cellulitis 04/08/2017 Morbid obesity due to excess calories ([facility]) 01/01/2017 Acute on chronic renal failure ([facility]) 12/30/2016 Osteomyelitis of right foot ([facility]) Hypertension Depression PLAN: Pre-Op Clearance: Pre-Operative Risk assessment using 2014 ACC/AHA guidelines Emergent procedure No Active Cardiac Condition No (decompensated HF, Arrhythmia, MS <3 weeks, severe valve disease) Risk Level [...] with the plan. Sincerely, Zoila Villafuerte PA-C [facility] Customer Sales Consultant [address] [place], [place] [id number] , I believe that the risk of [...] on CKD (HCC) 06/23/2022 Cauda equina syndrome ([facility]) 2004 Depression Hypertension MRSA (methicillin resistant staph aureus) culture positive 04/10/2017 right ankle Open wound of right ankle 12/30/2016 Paralysis of both lower limbs ([facility]) Paraplegia ([facility]) Type II or unspecified type diabetes mellitus without mention of complication, not stated as uncontrolled Unspecified sleep apnea Past Surgical History: Procedure Laterality Date APPENDECTOMY BACK SURGERY X2 OTHER SURGICAL HISTORY Right 04/10/2017 I&D rt foot/leg wounds OR I&D BELOW FASCIA FOOT 1 BURSAL SPACE Right 12/25/2016 FOOT DEBRIDEMENT INCISION AND DRAINAGE, 5TH DIGIT, PARTIAL AMB. PLACEMENT OF ANTIBOTIC BEADS performed by Gabriel Haile DPM at [facility] OR OR I&D BELOW FASCIA FOOT 1 BURSAL SPACE Right 04/10/2017 RIGHT ANKLE AND RIGHT HEEL DEBRIDEMENT INCISION AND DRAINAGE WITH CULTURES SENT performed by William Jimenez MD at [facility] OR OR OFFICE/OUTPT VISIT,PROCEDURE ONLY Right 06/14/2017 FOOT DEBRIDEMENT INCISION AND DRAINAGE-ANKLE INCLUDING BONE BIOPSY performed by Ro Husseint [facility] OR TOE AMPUTATION Right 12/25/2016 right fifth toe amputation with I&D, ATB beads per Dr. Haile [employer] [place] filter Allergies Allergen Reactions Vancomycin States had [...] IVPB, 600 mg, IntraVENous, Q8H, Shelly Mondragon, TECHNOLOGY OFFICER - ENVIRONMENTAL FIELD TEAM MEMBER, Stopped at 06/25/22 09 sodium hypochlorite (DAKINS) [...] Matias Doss MD, 5,000 Units at 06/23/22 8609 PE: VSS, Afebrile, NAD, A&O x 3, Aloof Labs: as above RLE ; lateral ankle ; FT+ ulcerative wound , +PTB IMP: stage 4 ankle decubitus, appaarent bone involvement Stable for minor bedside procedure Tx: see procedure notes P: see orders / AVS Yakov Min DPM 06/25/2022 12:28 PM * LAURENT Gomez - 06/25/2022 11:55 AM EDT Occupational Therapy Facility/Department: [facility] Daily Treatment Note NAME: [...] MD 8:05 AM 06/25/2022 * Shelly Mondragon, TECHNOLOGY OFFICER - ENVIRONMENTAL FIELD TEAM MEMBER - 06/25/2022 7:34 AM EDT Images from [...] labs-Hgb 7.6 today Nutrition status: morbid obesity Inspector Filters consult initiated Hospital Prophylaxis: DVT: Heparin Stress Ulcer: na Disposition: Shared decision making: All test results, treatment options and disposition options were discussed with the patient today Social determinants of health that may impact management: none Code status: Full Code Disposition: Discharge plan is home [facility] Advanced Care Planning documentation: [x] I [...] Shelly Mondragon APRN - DOLLY , ESTELLE, RADIOLOGIC TECH-C Hospitalist Medicine 06/25/2022, 7:34 AM IVETT Newman Associated attestation - Matias Doss MD - 06/25/2022 7:34 PM EDT Images from the original note were not included. [address] [place], [place], [address] Attestation Patient: Ganga Evans Alloway Date of Admission: 06/22/2022 4:21 PM Hospital Day # 3 Date of Evaluation: 06/25/2022 I personally evaluated and examined the patient [id number] in conjunction with the PA/RADIOLOGIC TECH and agree with the management and dispostition of the patient. Please see the PA/RADIOLOGIC TECH's note for full details.My kohli findings are: [...] with the plan as outlined in the RADIOLOGIC TECH/PA's note Disposition: Discharge plan is pending Please note that this chart was generated using voice recognition [employer] dictation software. Although every effort was made to ensure the accuracy of this automated nanotechnology engineering technologist, some errors in nanotechnology engineering technologist may have occurred. Matias Doss MD 06/25/2022 [...] Samayoa RN - 06/25/2022 12:52 AM EDT Veneer Puller at bedside at this time to perform [...] Samayoa RN - 06/24/2022 6:43 PM EDT Veneer Puller at bedside at this time to perform [...] 06/24/2022 4:57 PM EDT Physical Therapy Facility/Department: [facility] Daily Treatment Note NAME: [...] never been a smoker. He saw a central office installer at [facility] 2 years ago in 2020. [...] himself. He follows with wound clinic at [facility]. Mr. Stinson also denied any [...] Paralysis of both lower limbs (HCC) Paraplegia ([facility]) Type II or unspecified type diabetes mellitus without mention of complication, not stated as uncontrolled Unspecified sleep apnea CURRENT ALLERGIES: Vancomycin REVIEW OF SYSTEMS: 14 systems were reviewed. Pertinent positives and negatives as above, all else negative. Past Surgical History: Procedure Laterality Date APPENDECTOMY BACK SURGERY X2 OTHER SURGICAL HISTORY Right 04/10/2017 I&D rt foot/leg wounds OR I&D BELOW FASCIA FOOT 1 BURSAL SPACE Right 12/25/2016 FOOT DEBRIDEMENT INCISION AND DRAINAGE, 5TH DIGIT, PARTIAL AMB. PLACEMENT OF ANTIBOTIC BEADS performed by Gabriel Haile DPM at [facility] OR OR I&D BELOW FASCIA FOOT 1 BURSAL SPACE Right 04/10/2017 RIGHT ANKLE AND RIGHT HEEL DEBRIDEMENT INCISION AND DRAINAGE WITH CULTURES SENT performed by William Jimenez MD at [facility] OR OR OFFICE/OUTPT VISIT,PROCEDURE ONLY Right 06/14/2017 FOOT DEBRIDEMENT INCISION AND DRAINAGE-ANKLE INCLUDING BONE BIOPSY performed by Ro Husseint [facility] OR TOE AMPUTATION Right 12/25/2016 right fifth toe amputation with I&D, ATB beads per Dr. Haile [employer] [place] filter Social History: Social History Tobacco Use [...] Mixed hyperlipidemia 04/25/2015 Hyponatremia 04/25/2015 Diabetes mellitus ([facility]) 07/02/2011 Paraplegia ([facility]) 03/12/2011 MSSA (methicillin susceptible Staphylococcus aureus) infection 05/28/2017 Bacterial infection 02/17/2017 Enterococcus faecalis infection 12/28/2016 Skin ulcer of right heel with fat layer exposed ([facility]) 09/02/2016 Skin ulcer of right 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 ([facility]) 04/25/2015 Decubitus ulcer of coccygeal region 07/19/2013 Cauda equina syndrome ([facility]) 12/09/2011 Open wound of knee, leg (except thigh), and ankle, complicated 02/25/2011 Acute kidney injury superimposed on CKD ([facility]) 06/23/2022 Abnormal EKG 06/23/2022 Neurogenic bladder 06/23/2022 Hyperkalemia 06/22/2022 Osteomyelitis of ankle or foot, right, acute ([facility]) Decubitus ulcer of coccygeal region, stage 4 ([facility]) 04/09/2017 Cellulitis 04/08/2017 Morbid obesity due to excess calories ([facility]) 01/01/2017 Acute on chronic renal failure ([facility]) 12/30/2016 Osteomyelitis of right foot ([facility]) Hypertension Depression PLAN: Abnormal EKG [...] with the plan. Sincerely, Zoila Villafuerte PA-C [facility] Customer Sales Consultant [address] [place] [address] , I believe that the risk of [...] 06/24/2022 10:32 AM EDT Occupational Therapy Facility/Department: [facility] Daily Treatment Note NAME: [...] Bed Mobility Training: (positioned on side for [employer] to complete ultrasound at end of session) [...] prep on 06/25/2022 6pm KATERINA ATKINS MD [facility] * Shelly Mondragon APRN - DOLLY [...] IRon Monitor labs Nutrition status: morbid obesity Inspector Filters consult initiated Hospital Prophylaxis: DVT: Heparin Stress Ulcer: na Disposition: Shared decision making: All test results, treatment options and disposition options were discussed with the patient today Social determinants of health that may impact management: none Code status: Full Code Disposition: Discharge plan is home [facility] Advanced Care Planning documentation: [x] I [...] Shelly Mondragon APRN - DOLLY , ESTELLE, RADIOLOGIC TECH-C Hospitalist Medicine 06/24/2022, 7:34 AM Blood Transfusion [...] from the original note were not included. [address] , [place], [place], [address] Attestation Patient: Ganga Evans Alloway Date of Admission: 06/22/2022 4:21 PM Hospital Day # 2 Date of Evaluation: 06/24/2022 I personally evaluated and examined the patient [id number] in conjunction with the PA/RADIOLOGIC TECH and agree with the management and dispostition of the patient. Please see the PA/RADIOLOGIC TECH's note for full details.My kohli findings are: [...] with the plan as outlined in the RADIOLOGIC TECH/PA's note Disposition: Discharge plan is pending, GI, Cardiology, Urology consultations, Transfuse if pRBC <7, wound care to the affected area and monitor electrolytes. Please note that this chart was generated using voice recognition [employer] dictation software. Although every effort was made to ensure the accuracy of this automated nanotechnology engineering technologist, some errors in nanotechnology engineering technologist may have occurred. Matias Doss MD 06/24/2022 9:39 PM * Geneva Samayoa RN - 06/24/2022 2:46 AM EDT Spoke with Dr. Doss and informed him of critical lab levels. No new orders. * Geneva Samayoa RN - 06/24/2022 2:15 AM EDT Veneer Puller at bedside at this time to perform [...] this time and patient transferred over to [place] bed. * Geneva Samayoa RN - 06/23/2022 9:00 PM EDT Veneer Puller at bedside at this time to perform [...] 06/23/2022 4:35 PM EDT Physical Therapy Facility/Department: [facility] Daily Treatment Note NAME: [...] 06/23/2022 4:31 PM EDT Occupational Therapy Facility/Department: [facility] Daily Treatment Note NAME: [...] 06/23/2022 2:08 PM EDT Physical Therapy Facility/Department: [facility] Physical Therapy Initial Assessment [...] paraplegic and has no functional movement in jo LEs toassist with transfers. Subjective General Chart [...] Ambulation Assistance: Non-ambulatory Transfer Assistance: Independent Active Therapeutic Riding Instructor: No Additional Comments: Pt. with hx of [...] 06/23/2022 11:26 AM EDT Occupational Therapy Facility/Department: [facility] Occupational Therapy Initial Assessment [...] Ambulation Assistance: Non-ambulatory Transfer Assistance: Independent Active Therapeutic Riding Instructor: No Additional Comments: Pt. with hx of [...] to Severe Extremities (+ 2 pitting BLE) Timber Cruiser Strength: Not Performed Nutrition Assessment: Altered nutrition [...] Anthropometric Measures: Height: 5' 11 (180.3 cm) [place] Body Weight (IBW): 172 lbs (78 kg) [...] Used for Energy Requirements: Current Energy (kcal/day): 1554-3415 (20-23/kg) Weight Used for Protein Requirements: [place] Protein (g/day): 109-133g (1.4-1.7g/kg) Method Used for [...] Nutrition Supplement [address], [place] Contact: [phone] * Panchito Crockett RN - 06/23/2022 1:00 AM EDT Veneer Puller at bedside for reassessment-see flow sheet for details. Patient remains alert and oriented x4-calm and cooperative. Patient continues to deny pain and discomfort. Incontinence and stewart care provided. Denying any additional needs, call light placed within reach, bed in lowest position and alarm engaged to promote patient safety. Will continue to monitor. * Panchito Crockett RN - 06/23/2022 12:00 AM EDT Veneer Puller attempted to place rowe catheter at this time- unable to advance 16 FR catheter. Rn Drop Pit Worker notified and will attempt- will continue to monitor. Patient reports no pain or discomfort. * Panchito Crockett RN - 06/22/2022 11:12 PM EDT Veneer Puller phoned Dr. Doss at this informing physician [...] continue to monitor. documented in this encounterBON [facility] MED[facility] CENTERAwesome Media, LLC Work Phone: [phone] Hospital Discharge instructions* Discharge Instructions* Fabby Felder [...] most local grocery stores, pharmacies, and chain [employer]-stores. If you have any questions about your diet or nutrition, call the hospital and ask for the dietitian. Regular documented in this encounterBON BAN[facility] MED[facility] CENTERNorthern [place] Phone: [phone] 109-137003-07-2023 Progress note Author Cathy Brar [facility] June 02, 2022 12:14pm Note Date/Time June 02, 2022 12:1 4pm [facility] [address] [place] [address] Wound Center Provider Note Signed Patient: Ganga Stinson MR#: [id number] : 1960 Acct:[id number] Age/Sex: 61 / M Copies to: MD Fidel Whitmore MD~ HPI Date of Visit Date of Visit: Date of Service: 06/02/2022 Time of Service: 12:01 Narrative HPI: Patient is being followed for his chronic bilateral ischial, sacral and right foot ulcers. His is doing his dressing changes. Patient has been having some right hip pain and underwent a CT scan in [place] on 03/14/2022. This showed slight deepening of [...] Constitutional: Denies fever(s) Integumentary/Breasts Skin/Breast: Reports wounds [facility] Medical History (Updated 06/02/22 @ 12:13 [...] Sacrum: Bed Appearance: Beefy Red, Bone Palpable, Cale and Yellow Percent of Wound Bed Granulated/Red: 90 Percent of Devitalized: 10 Length (cm): 3.5 Width (cm): 1.8 Depth (cm): 2 CM Sq: 6.300 Undermining Position: 360 Undermining Depth: 3 Surrounding Tissue Appearance: Cale Surrounding Tissue Temp: Warm Drainage Amount: Large Drainage Description: Serosanguineous Drainage Odor: No Odor Left Ischium: Bed Appearance: Beefy Red, Bone Palpable, Cale and Yellow Percent of Wound Bed Granulated/Red: 90 Percent of Devitalized: 10 Length (cm): 7 Width (cm): 6 Depth (cm): 5.5 CM Sq: 42.000 Surrounding Tissue Appearance: Cale Surrounding Tissue Temp: Warm Drainage Amount: Large Drainage Description: Serosanguineous Drainage Odor: No Odor Right Ischium: Bed Appearance: Beefy Red, Bone Palpable, Cale and Yellow Percent of Wound Bed Granulated/Red: 90 Percent of Devitalized: 10 Length (cm): 0.7 Width (cm): 1 Depth (cm): 4 CM Sq: 0.700 Surrounding Tissue Appearance: Cale Surrounding Tissue Temp: Warm Drainage Amount: Moderate Drainage Description: Serosanguineous Drainage Odor: No Odor Left Ankle: Bed Appearance: Brown, Cale and Yellow Percent of Wound Bed Granulated/Red: 5 Percent of Devitalized: 95 Length (cm): 3.5 Width (cm): 2.5 Depth (cm): 0.1 CM Sq: 8.750 Surrounding Tissue Appearance: Cale Surrounding Tissue Temp: Warm Drainage Amount: Moderate Drainage Description: Serosanguineous Drainage Odor: No Odor Medial Ankle: Bed Appearance: Brown, Cale and Yellow Percent of Wound Bed Granulated/Red: 50 Percent of Devitalized: 50 Length (cm): 3.5 Width (cm): 4 Depth (cm): 0.1 CM Sq: 14.000 Surrounding Tissue Appearance: Cale Surrounding Tissue Temp: Warm Drainage Amount: Moderate Drainage Description: Serosanguineous Drainage Odor: No Odor Medial Foot: Bed Appearance: Black Dry, Brown, Cale and Hardware Percent of Wound Bed Granulated/Red: 5 Percent of Devitalized: 95 Length (cm): 2 Width (cm): 1.2 Depth (cm): 0.1 CM Sq: 2.400 Surrounding Tissue Appearance: Cale Surrounding Tissue Temp: Warm Drainage Amount: Moderate [...] Diabetes mellitus type: type 2 Diabetes mellitus exterminator helper insulin use:with exterminator helper use Diabetes mellitus complication status: with skin [...] signed by MD Cathy Brar> 06/02/22 1214 [facility] Work Phone: [phone]) 199-832712-06-2022 Progress note Author Cathy Brar [facility] March 03, 2022 12:06pm Note Date/Time March 03, 2022 1 2:06pm [facility] [address] [place] [address] Wound Center Provider Note Signed Patient: Ganga Stinson MR#: [id number] : 1960 Acct:[id number] Age/Sex: 61 / M Copies to: MD [...] Ischium: Bed Appearance: Beefy Red, Bone Palpable, Cale and Yellow Percent of Wound Bed Granulated/Red: [...] Bed Appearance: Beefy Red, Bone Palpable, Devitalized, Cale, Yellow and Rolled Edges Percent of Wound Bed Granulated/Red: 50 Percent of Devitalized: 50 Length (cm): 0.7 Width (cm): 0.8 Depth (cm): 4.0 CM Sq: 0.560 Undermining Position: 0 Undermining Depth: 0 Surrounding Tissue Appearance: Macerated and Rolled Edges Surrounding Tissue Temp: Warm Drainage Amount: Moderate Drainage Description: Serosanguineous Drainage Odor: No Odor Lidocaine Applied Topically: 2% Jelly Right Buttock: Bed Appearance: Devitalized, Cale and Yellow Percent of Wound Bed Granulated/Red: 100 Percent of Devitalized: 0 Length (cm): 0 Width (cm): 0 Depth (cm): 0 CM Sq: 0.000 Surrounding Tissue Appearance: Hyperpigmented Surrounding Tissue Temp: Warm Drainage Amount: None Drainage Description: Serosanguineous Drainage Odor: No Odor Lidocaine Applied Topically: 2% Jelly Right Lower Medial Leg: Bed Appearance: Cale and Yellow Percent of Wound Bed Granulated/Red: [...] Diabetes mellitus type: type 2 Diabetes mellitus exterminator helper insulin use:with retirement use Diabetes mellitus complication status: with skin complications Diabetes mellitus complication detail: with other skin ulcer Qualified Code(s): E11.622 - Type 2 diabetes mellitus with other skin ulcer; Z79.4 - continuous churn buttermaker (current) use of insulin Code(s): E11.9 - [...] signed by MD Cathy Brar> 03/03/22 [address] [facility] Work Phone: 1([phone]) 379-610112-02-2022 NotePROCEDURE: XR HIP RT 2 3V W [...] Electronically authenticated by: KHADAR MEDINA Date: 2022-02-27 07:17[facility]11-01-2022 Progress note Author Cathy Brar [facility] January 27, 2022 12:11pm Note Date/Time January 27, 2022 1 2:11pm [facility] [address] [place] [address] Wound Center Provider Note Signed Patient: Ganga Stinson MR#: [id number] : 1960 Acct:[id number] Age/Sex: 61 / M Copies to: MD [...] 360 Undermining Depth: 3.5 Surrounding Tissue Appearance: Cale and Rolled Edges Surrounding Tissue Temp: Warm Drainage Amount: Large Drainage Description: Serosanguineous Drainage Odor: No Odor Lidocaine Applied Topically: 2% Jelly Right Heel: Bed Appearance: Beefy Red, Cale and Yellow Percent of Wound Bed Granulated/Red: 50 Percent of Devitalized: 50 Length (cm): 1.0 Width (cm): 1.4 Depth (cm): 0.1 CM Sq: 1.400 Surrounding Tissue Appearance: Peeling and Dryness Surrounding Tissue Temp: Warm Drainage Amount: Small Drainage Description: Serosanguineous Drainage Odor: No Odor Lidocaine Applied Topically: 2% Jelly Right Ischium: Bed Appearance: Beefy Red, Bone Palpable, Cale and Yellow Percent of Wound Bed Granulated/Red: [...] Bed Appearance: Beefy Red, Bone Palpable, Devitalized, Cale, Yellow and Rolled Edges Percent of Wound Bed Granulated/Red: 50 Percent of Devitalized: 50 Length (cm): 1.5 Width (cm): 1.0 Depth (cm): 4.0 CM Sq: 1.500 Undermining Position: 10-3:00 Undermining Depth: 3.5 Surrounding Tissue Appearance: Macerated and Rolled Edges Surrounding Tissue Temp: Warm Drainage Amount: Moderate Drainage Description: Serosanguineous Drainage Odor: No Odor Lidocaine Applied Topically: 2% Jelly Right Buttock: Bed Appearance: Devitalized, Cale and Yellow Percent of Wound Bed Granulated/Red: 100 Percent of Devitalized: 0 Length (cm): 0 Width (cm): 0 Depth (cm): 0 CM Sq: 0.000 Surrounding Tissue Appearance: Cale Surrounding Tissue Temp: Warm Drainage Amount: None Drainage Description: Serosanguineous Drainage Odor: No Odor Lidocaine Applied Topically: 2% Jelly Right Lower Medial Leg: Bed Appearance: Cale and Yellow Percent of Wound Bed Granulated/Red: [...] Diabetes mellitus type: type 2 Diabetes mellitus exterminator helper insulin use:with exterminator helper use Diabetes mellitus complication status: with skin complications Diabetes mellitus complication detail: with other skin ulcer Qualified Code(s): E11.622 - Type 2 diabetes mellitus with other skin ulcer; Z79.4 - continuous churn buttermaker (current) use of insulin Code(s): E11.9 - [...] signed by MD Cathy Brar> 01/27/22 12[address] [facility] Work Phone: 1(124) 946-909209-27-2022 Progress note Author Cathy Brar [facility] December 23, 2021 12:32pm Note Date/Time December 23, 2021 12:32pm [facility] [address] [place] [address] Wound Center Provider Note Signed Patient: Ganga Stinson MR#: [id number] : 1960 Acct:[id number] Age/Sex: 61 / M Copies to: MD [...] Bed Appearance: Beefy Red, Bone Palpable, Devitalized, Cale and Yellow Percent of Wound Bed Granulated/Red: 95 Percent of Devitalized: 5 Length (cm): 3.2 Width (cm): 2 Depth (cm): 2.5 CM Sq: 6.400 Undermining Position: 10-4:00 Undermining Depth: 5 Surrounding Tissue Appearance: Cale and Macerated Surrounding Tissue Temp: Warm Drainage Amount: Large Drainage Description: Serosanguineous Drainage Odor: No Odor Lidocaine Applied Topically: 2% Jelly Right Heel: Bed Appearance: Beefy Red, Devitalized, Epithelial Tissue or Bridge, Cale and Yellow Percent of Wound Bed Granulated/Red: 90 Percent of Devitalized: 10 Length (cm): 3 Width (cm): 8 Depth (cm): 0.1 CM Sq: 24.000 Surrounding Tissue Appearance: Peeling and Dryness Surrounding Tissue Temp: Warm Drainage Amount: Large Drainage Description: Serosanguineous Drainage Odor: No Odor Lidocaine Applied Topically: 2% Jelly Right Ischium: Bed Appearance: Beefy Red, Bone Palpable, Devitalized, Epithelial Tissue or Bridge, Cale and Yellow Percent of Wound Bed Granulated/Red: 95 Percent of Devitalized: 5 Length (cm): 5 Width (cm): 5 Depth (cm): 5 CM Sq: 25.000 Undermining Position: 12-6:00 Undermining Depth: 1 Surrounding Tissue Appearance: Macerated Surrounding Tissue Temp: Warm Drainage Amount: Large Drainage Description: Serosanguineous Drainage Odor: No Odor Lidocaine Applied Topically: 2% Jelly Left Ischium: Bed Appearance: Beefy Red, Bone Palpable, Devitalized, Cale and Yellow Percent of Wound Bed Granulated/Red: 95 Percent of Devitalized: 5 Length (cm): 1.6 Width (cm): 1.6 Depth (cm): 3.5 CM Sq: 2.560 Undermining Position: 10-3:00 Undermining Depth: 3.5 Surrounding Tissue Appearance: Macerated Surrounding Tissue Temp: Warm Drainage Amount: Moderate Drainage Description: Serosanguineous Drainage Odor: No Odor Lidocaine Applied Topically: 2% Jelly Right Buttock: Bed Appearance: Devitalized, Cale and Yellow Percent of Wound Bed Granulated/Red: 95 Percent of Devitalized: 5 Length (cm): 1.5 Width (cm): 0.5 Depth (cm): 0.1 CM Sq: 0.750 Surrounding Tissue Appearance: Cale and Callous Surrounding Tissue Temp: Warm Drainage Amount: Small Drainage Description: Serosanguineous Drainage Odor: No Odor Lidocaine Applied Topically: 2% Jelly Right Lower Lateral Leg: Bed Appearance: Beefy Red, Devitalized, Cale and Yellow Percent of Wound Bed Granulated/Red: 10 Percent of Devitalized: 90 Length (cm): 0 Width (cm): 0 Depth (cm): 0 CM Sq: 0.000 Surrounding Tissue Appearance: Hyperpigmented Surrounding Tissue Temp: Warm Drainage Amount: None Drainage Description: Serosanguineous Drainage Odor: No Odor Lidocaine Applied Topically: 2% Jelly Right Lower Medial Leg: Bed Appearance: Devitalized, Epithelial Tissue or Bridge, Cale and Yellow Percent of Wound Bed Granulated/Red: [...] Diabetes mellitus type: type 2 Diabetes mellitus exterminator helper insulin use:with exterminator helper use Diabetes mellitus complication status: with skin [...] signed by MD Cathy Brar> 12/23/21 1232 [facility] Work Phone: 1([phone]) 243-537208-23-2022 Progress note Author Cathy Brar [facility] November 18, 2021 11:55am Note Date/Time November 18, 2021 11 :55am [facility] [address] [place] [address] Wound Center Provider Note Signed Patient: Ganga Stinson MR#: [id number] : 1960 Acct:[id number] Age/Sex: 61 / M Copies to: MD [...] Bed Appearance: Beefy Red, Bone Palpable, Devitalized, Cale and Yellow Percent of Wound Bed Granulated/Red: 75 Percent of Devitalized: 25 Length (cm): 3.5 Width (cm): 2.0 Depth (cm): 2.5 CM Sq: 7.000 Undermining Position: 360 (deepest at 3) Undermining Depth: 3.5 Surrounding Tissue Appearance: Hyperpigmented Surrounding Tissue Temp: Warm Drainage Amount: Large Drainage Description: Serosanguineous Drainage Odor: No Odor Lidocaine Applied Topically: 2% Jelly Right Heel: Bed Appearance: Devitalized, Cale and Yellow Percent of Wound Bed Granulated/Red: 1 Percent of Devitalized: 99 Length (cm): 1.6 Width (cm): 2.3 Depth (cm): 0.1 CM Sq: 3.680 Surrounding Tissue Appearance: Hyperpigmented Surrounding Tissue Temp: Warm Drainage Amount: Large Drainage Description: Serosanguineous Drainage Odor: No Odor Lidocaine Applied Topically: 2% Jelly Right Ischium: Bed Appearance: Beefy Red, Bone Palpable, Devitalized, Epithelial Tissue or Bridge, Cale and Yellow Percent of Wound Bed Granulated/Red: [...] Bed Appearance: Beefy Red, Bone Palpable, Devitalized, Cale and Yellow Percent of Wound Bed Granulated/Red: 90 Percent of Devitalized: 10 Length (cm): 2.0 Width (cm): 2.0 Depth (cm): 3.5 CM Sq: 4.000 Undermining Position: 9-11:00 Undermining Depth: 4.0 Surrounding Tissue Appearance: Hyperpigmented Surrounding Tissue Temp: Warm Drainage Amount: Moderate Drainage Description: Serosanguineous Drainage Odor: No Odor Lidocaine Applied Topically: 2% Jelly Right Buttock: Bed Appearance: Beefy Red, Devitalized, Cale and Yellow Percent of Wound Bed Granulated/Red: 95 Percent of Devitalized: 5 Length (cm): 2.4 Width (cm): 1.0 Depth (cm): 0.1 CM Sq: 2.400 Surrounding Tissue Appearance: Hyperpigmented Surrounding Tissue Temp: Warm Drainage Amount: Moderate Drainage Description: Serosanguineous Drainage Odor: No Odor Lidocaine Applied Topically: 2% Jelly Right Lower Lateral Leg: Bed Appearance: Beefy Red, Devitalized, Cale and Yellow Percent of Wound Bed Granulated/Red: 10 Percent of Devitalized: 90 Length (cm): 1.3 Width (cm): 1.4 Depth (cm): 0.1 CM Sq: 1.820 Surrounding Tissue Appearance: Hyperpigmented Surrounding Tissue Temp: Warm Drainage Amount: Moderate Drainage Description: Serosanguineous Drainage Odor: No Odor Lidocaine Applied Topically: 2% Jelly Right Lower Medial Leg: Bed Appearance: Black Dry, Devitalized, Epithelial Tissue or Bridge, Cale and Yellow Percent of Wound Bed Granulated/Red: [...] Diabetes mellitus type: type 2 Diabetes mellitus retirement insulin use:with retirement use Diabetes mellitus complication status: with skin complications Diabetes mellitus complication detail: with other skin ulcer Qualified Code(s): E11.622 - Type 2 diabetes mellitus with other skin ulcer; Z79.4 - continuous churn buttermaker (current) use of insulin Code(s): E11.9 - [...] <Electronically signed by MD Cathy Brar> 11/18/21 [facility] Work Phone: 1(441) 245-687307-26-2022 Progress note Author Cathy Brar [facility] October 21, 2021 11:44am Note Date/Time October 21, 2021 11:4 4am [facility] [address] [place] [address] Wound Center Provider Note Signed Patient: Ganga Stinson MR#: [id number] : 1960 Acct:[id number] Age/Sex: 61 / M Copies to: MD [...] Bed Appearance: Beefy Red, Bone Palpable, Devitalized, Cale and Yellow Percent of Wound Bed Granulated/Red: 75 Percent of Devitalized: 25 Length (cm): 4.2 Width (cm): 3.0 Depth (cm): 3.0 CM Sq: 12.600 Undermining Position: 360 (deepest at 3) Undermining Depth: 3.5 Surrounding Tissue Appearance: Hyperpigmented Surrounding Tissue Temp: Warm Drainage Amount: Large Drainage Description: Serosanguineous Drainage Odor: No Odor Lidocaine Applied Topically: 2% Jelly Right Heel: Bed Appearance: Devitalized, Cale and Yellow Percent of Wound Bed Granulated/Red: 50 Percent of Devitalized: 50 Length (cm): 2.3 Width (cm): 3.2 Depth (cm): 0.1 CM Sq: 7.360 Surrounding Tissue Appearance: Hyperpigmented Surrounding Tissue Temp: Warm Drainage Amount: Large Drainage Description: Serosanguineous Drainage Odor: No Odor Lidocaine Applied Topically: 2% Jelly Right Ischium: Bed Appearance: Beefy Red, Bone Palpable, Devitalized, Epithelial Tissue or Bridge, Cale and Yellow Percent of Wound Bed Granulated/Red: [...] Bed Appearance: Beefy Red, Bone Palpable, Devitalized, Cale and Yellow Percent of Wound Bed Granulated/Red: 90 Percent of Devitalized: 10 Length (cm): 3.0 Width (cm): 1.6 Depth (cm): 4.5 CM Sq: 4.800 Undermining Position: 9-11:00 Undermining Depth: 1.0 Surrounding Tissue Appearance: Hyperpigmented Surrounding Tissue Temp: Warm Drainage Amount: Moderate Drainage Description: Serosanguineous Drainage Odor: No Odor Lidocaine Applied Topically: 2% Jelly Right Buttock: Bed Appearance: Beefy Red, Devitalized, Cale and Yellow Percent of Wound Bed Granulated/Red: 80 Percent of Devitalized: 20 Length (cm): 2.2 Width (cm): 1.1 Depth (cm): 0.1 CM Sq: 2.420 Surrounding Tissue Appearance: Hyperpigmented Surrounding Tissue Temp: Warm Drainage Amount: Moderate Drainage Description: Serosanguineous Drainage Odor: No Odor Lidocaine Applied Topically: 2% Jelly Right Lower Lateral Leg: Bed Appearance: Beefy Red, Devitalized, Cale and Yellow Percent of Wound Bed Granulated/Red: 10 Percent of Devitalized: 90 Length (cm): 1.3 Width (cm): 1.4 Depth (cm): 0.1 CM Sq: 1.820 Surrounding Tissue Appearance: Hyperpigmented Surrounding Tissue Temp: Warm Drainage Amount: Moderate Drainage Description: Serosanguineous Drainage Odor: No Odor Lidocaine Applied Topically: 2% Jelly Right Lower Medial Leg: Bed Appearance: Black Dry, Devitalized, Cale and Yellow Percent of Wound Bed Granulated/Red: 80 Percent of Devitalized: 20 Length (cm): 1.6 Width (cm): 2.5 Depth (cm): 0.1 CM Sq: 4.000 Surrounding Tissue Appearance: Hyperpigmented Surrounding Tissue Temp: Warm Drainage Amount: Moderate Drainage Description: Serosanguineous Drainage Odor: No Odor Lidocaine Applied Topically: 2% Jelly Right Foot: Bed Appearance: Beefy Red, Devitalized, Epithelial Tissue or Bridge, Cale and Yellow Percent of Wound Bed Granulated/Red: [...] Diabetes mellitus type: type 2 Diabetes mellitus exterminator helper insulin use:with retirement use Diabetes mellitus complication status: with skin [...] signed by MD Cathy Brar> 10/21/21 114[address] [facility] Work Phone: 1(692) 841-123006-21-2022 Progress note Author Cathy Brar [facility] September 16, 2021 11:55am Note Date/Time September 16, 2021 11:5 1am [facility] [address] [place] [address] Wound Center Provider Note Signed Patient: Ganga Stinson MR#: [id number] : 1960 Acct:[id number] Age/Sex: 61 / M Copies to: MD [...] Wound/Ulcer Sacrum: Bed Appearance: Bone Palpable, Devitalized, Cale and Yellow Percent of Wound Bed Granulated/Red: [...] Heel: Bed Appearance: Black Moist, Brown, Devitalized, Cale and Yellow Percent of Wound Bed Granulated/Red: 95 Percent of Devitalized: 5 Length (cm): 3.4 Width (cm): 5.1 Depth (cm): 0.1 CM Sq: 17.340 Surrounding Tissue Appearance: Hyperpigmented Surrounding Tissue Temp: Warm Drainage Amount: Large Drainage Description: Serosanguineous Drainage Odor: No Odor Lidocaine Applied Topically: 2% Jelly Right Ischium: Bed Appearance: Beefy Red, Devitalized, Epithelial Tissue or Bridge, Cale and Yellow Percent of Wound Bed Granulated/Red: 90 Percent of Devitalized: 10 Length (cm): 5.1 Width (cm): 5.5 Depth (cm): 4 CM Sq: 28.050 Undermining Position: 1-3:00 Undermining Depth: 1.5 Surrounding Tissue Appearance: Hyperpigmented Surrounding Tissue Temp: Warm Drainage Amount: Large Drainage Description: Serosanguineous Drainage Odor: No Odor Lidocaine Applied Topically: 2% Jelly Left Ischium: Bed Appearance: Beefy Red, Bone Palpable, Devitalized, Cale and Yellow Percent of Wound Bed Granulated/Red: 90 Percent of Devitalized: 10 Length (cm): 3.9 Width (cm): 1.8 Depth (cm): 5 CM Sq: 7.020 Undermining Position: 9-11:00 Undermining Depth: 2.2 Surrounding Tissue Appearance: Hyperpigmented Surrounding Tissue Temp: Warm Drainage Amount: Moderate Drainage Description: Serosanguineous Drainage Odor: No Odor Lidocaine Applied Topically: 2% Jelly Right Buttock: Bed Appearance: Beefy Red, Devitalized, Cale and Yellow Percent of Wound Bed Granulated/Red: 99 Percent of Devitalized: 1 Length (cm): 2.3 Width (cm): 0.9 Depth (cm): 0.2 CM Sq: 2.070 Surrounding Tissue Appearance: Hyperpigmented Surrounding Tissue Temp: Warm Drainage Amount: Moderate Drainage Description: Serosanguineous Drainage Odor: No Odor Lidocaine Applied Topically: 2% Jelly Right Lower Lateral Leg: Bed Appearance: Beefy Red, Devitalized, Cale and Yellow Percent of Wound Bed Granulated/Red: 20 Percent of Devitalized: 80 Length (cm): 3.8 Width (cm): 2.3 Depth (cm): 0.1 CM Sq: 8.740 Surrounding Tissue Appearance: Hyperpigmented Surrounding Tissue Temp: Warm Drainage Amount: Moderate Drainage Description: Serosanguineous Drainage Odor: No Odor Lidocaine Applied Topically: 2% Jelly Right Lower Medial Leg: Bed Appearance: Black Dry, Devitalized, Cale and Yellow Percent of Wound Bed Granulated/Red: 75 Percent of Devitalized: 25 Length (cm): 2.5 Width (cm): 2.7 Depth (cm): 0.2 CM Sq: 6.750 Surrounding Tissue Appearance: Hyperpigmented Surrounding Tissue Temp: Warm Drainage Amount: Moderate Drainage Description: Serosanguineous Drainage Odor: No Odor Lidocaine Applied Topically: 2% Jelly Right Foot: Bed Appearance: Beefy Red, Devitalized, Epithelial Tissue or Bridge, Cale and Yellow Percent of Wound Bed Granulated/Red: [...] Diabetes mellitus type: type 2 Diabetes mellitus retirement insulin use:with retirement use Diabetes mellitus complication status: with skin complications Diabetes mellitus complication detail: with other skin ulcer Qualified Code(s): E11.622 - Type 2 diabetes mellitus with other skin ulcer; Z79.4 - continuous churn buttermaker (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) use of insulin Code(s): E11.9 - [...] <Electronically signed by MD Cathy Brar> 09/16/21 1969 [facility] Work Phone: 1(707) 119-407405-03-2022 Progress note Author Cathy Brar [facility] July 29, 2021 12:33pm Note Date/Time July 29, 2021 12:33p m [facility] [address] [place] [address] Wound Center Provider Note Signed Patient: Ganga Stinson MR#: [id number] : 1960 Acct:[id number] Age/Sex: 61 / M Copies to: MD [...] down Wound/Ulcer Sacrum: Bed Appearance: Bone Palpable, Cale and Yellow Percent of Wound Bed Granulated/Red: 50 Percent of Devitalized: 50 Length (cm): 2.6 Width (cm): 2.0 Depth (cm): 3.0 CM Sq: 5.200 Undermining Position: 9-4 (deepest at 4) Undermining Depth: 5.4 Surrounding Tissue Appearance: Hyperpigmented Surrounding Tissue Temp: Warm Drainage Amount: Large Drainage Description: Serosanguineous Drainage Odor: No Odor Lidocaine Applied Topically: 2% Jelly Right Heel: Bed Appearance: Black Moist, Brown, Cale and Yellow Percent of Wound Bed Granulated/Red: 15 Percent of Devitalized: 85 Length (cm): 6.0 Width (cm): 9.0 Depth (cm): 0.5 CM Sq: 54.000 Surrounding Tissue Appearance: Hyperpigmented Surrounding Tissue Temp: Warm Drainage Amount: Large Drainage Description: Serosanguineous Drainage Odor: No Odor Lidocaine Applied Topically: 2% Jelly Right Ischium: Bed Appearance: Beefy Red, Epithelial Tissue or Bridge, Cale and Yellow Percent of Wound Bed Granulated/Red: 50 Percent of Devitalized: 50 Length (cm): 9.3 Width (cm): 7.9 Depth (cm): 5.2 CM Sq: 73.470 Undermining Position: 360 (deepest at 7) Undermining Depth: 2.3 Surrounding Tissue Appearance: Hyperpigmented Surrounding Tissue Temp: Warm Drainage Amount: Large Drainage Description: Serosanguineous Drainage Odor: No Odor Lidocaine Applied Topically: 2% Jelly Left Ischium: Bed Appearance: Cale and Yellow Percent of Wound Bed Granulated/Red: 50 Percent of Devitalized: 50 Length (cm): 1.7 Width (cm): 1.5 Depth (cm): 3.5 CM Sq: 2.550 Undermining Position: 3-8 Undermining Depth: 4.5 Surrounding Tissue Appearance: Hyperpigmented Surrounding Tissue Temp: Warm Drainage Amount: Moderate Drainage Description: Serosanguineous Drainage Odor: No Odor Lidocaine Applied Topically: 2% Jelly Right Buttock: Bed Appearance: Beefy Red, Cale and Yellow Percent of Wound Bed Granulated/Red: 75 Percent of Devitalized: 25 Length (cm): 6.6 Width (cm): 2.0 Depth (cm): 0.1 CM Sq: 13.200 Surrounding Tissue Appearance: Hyperpigmented Surrounding Tissue Temp: Warm Drainage Amount: Moderate Drainage Description: Serosanguineous Drainage Odor: No Odor Lidocaine Applied Topically: 2% Jelly Right Lower Lateral Leg: Bed Appearance: Beefy Red, Cale and Yellow Percent of Wound Bed Granulated/Red: 50 Percent of Devitalized: 50 Length (cm): 1.8 Width (cm): 1.5 Depth (cm): 0.1 CM Sq: 2.700 Surrounding Tissue Appearance: Hyperpigmented Surrounding Tissue Temp: Warm Drainage Amount: Moderate Drainage Description: Serosanguineous Drainage Odor: No Odor Lidocaine Applied Topically: 2% Jelly Right Lower Medial Leg: Bed Appearance: Black Dry, Cale and Yellow Percent of Wound Bed Granulated/Red: [...] Diabetes mellitus type: type 2 Diabetes mellitus exterminator helper insulin use:with retirement use Diabetes mellitus complication status: with skin complications Diabetes mellitus complication detail: with other skin ulcer Qualified Code(s): E11.622 - Type 2 diabetes mellitus with other skin ulcer; Z79.4 - continuous churn buttermaker (current) use of insulin Code(s): E11.9 - [...] will attempt to obtain that note from central office installer in [place]. See Instructions for Orders See Instructions for Orders See Wound Discharge Instructions for Orders: Patient may require serial debridement to remove devitalized tissue and encourage granulation. Dictated By: Cathy Brar MD DD/ [id number] Signed By: <Electronically signed by MD Cathy Brar> 07/29/21 1233 [facility] [employer] Work Phone: Evaluation + Plan note No data available for this section [facility] evaluation note* Diagnosis Onset Date Resolution Status Right hip pain acute Stage IV pressure ulcer of sacral region acute Unstageable pressure ulcer of right heel acute Cauda equina spinal cord injury chronic Diabetes chronic Pressure ulcer of left hip, stage 3 resolved Pressure ulcer of right hip, stage 3 resolved [facility] Work Phone: Evaluation note* Diagnosis Neurogenic bladder Neurogenic bladder, NOS documented in this encounter [employer] Work Phone: evaluation note* Diagnosis Neurogenic bladder Neurogenic bladder, NOS documented in this encounter [employer] Phone: evaluation note* Diagnosis Hyperkalemia- Primary Hyperpotassemia [...] of neurogenic bladder documented in this encounter [employer] Work Phone: evaluation note* Diagnosis Acute kidney injury (HCC) Acute kidney failure, unspecified Iron deficiency anemia, unspecified iron deficiency anemia type documented in this encounter [employer] Phone: [email or web address] note* Diagnosis Onset Date Resolution Status Pressure injury of left ischium, stage 4 acute Pressure injury of right ischium, stage 4 acute Pressure ulcer of right foot, stage 2 acute Right hip pain acute 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 Diabetes chronic [facility] Work Phone: Evaluation note* Diagnosis Cauda equina syndrome (HCC) Cauda equina syndrome without mention of neurogenic bladder Neurogenic bladder Neurogenic bladder, NOS Urinary retention Retention of urine, unspecified Urinary incontinence without sensory awareness Incontinence without sensory awareness documented in this encounter [facility] [employer]* Diagnosis Cellulitis of left foot- Primary Ulcer of left ankle, with necrosis of bone (HCC) ([facility]) Diabetes mellitus due to underlying condition with diabetic polyneuropathy, unspecified whether exterminator helper insulin use ([facility]) Acute complete paraplegia ([facility]) Acute osteomyelitis of left fibula ([facility]) Foot ulcer, right, with fat layer exposed ([facility]) Venous insufficiency Unspecified venous (peripheral) insufficiency documented in this encounter [facility] HealthcareEvaluation note* Diagnosis Abscess of toe, right- Primary documented in this encounter [facility] HealthcareEvaluation note* Diagnosis Onset Date Resolution Status [id number] acute Foot ulcer with fat layer exposed acute Stage IV pressure ulcer of right buttock acute 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 buttock, stage 3 chronic [facility] Work Phone: Evaluation note* Diagnosis Type [...] disorder Chronic kidney disease, stage 3a (HCC) ([facility]) Encounter for long-term (current) use of medications Encounter for long-term (current) use of other medications Cauda equina syndrome (CMS/HCC) Cauda equina syndrome without mention of neurogenic bladder Urticaria- Primary Unspecified urticaria [facility] Additional Instructions DISCHARGE INSTRUCTIONS FOR [...] operative site FOLLOW UP Phone numbers: Office [phone] [facility] Work Phone: Hospital Discharge instructions No data available for this section [facility] InstructionsNot on filedocumented in this encounter [facility] [employer] note No data available for this section [facility] Summary Purpose Family History No Family History [...] Fibula Osteomyelitis, Diabetes, Ulcerative Reason for Visit [id number] Foot ulcer with fat layer exposed 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 Cauda equina spinal cord injury Pressure ulcer of left buttock, stage 3 Chief Complaint Open Wound Left Fibula Osteomyelitis, Diabetes, Ulcerative Unknown Reason for Visit [id number] Foot ulcer with fat layer exposed Stage [...] EKG 12 Lead Angeles Nagy MD [address], [address] [place] [address] Referral ID Status Reason Start Date Expiration Date V isits Requested Visits Authorized [id number] Pending Review 06/22/2022 06/22/2023 1 1 Specialty Diagnoses / Procedures Referred By Contac t Referred To Contact Radiology Diagnoses Cauda equina syndrome (HCC) Neurogenic bladder Urinary retention Urinary incontinence without sensory awareness Procedures US RENAL COMPLETE Ashlee Erwin, TECHNOLOGY OFFICER - ENVIRONMENTAL FIELD TEAM MEMBER [address] [place] [address] Referral ID Status Reason Start Date Expiration Date Visits Re quested Visits Authorized [id number] Open 09/18/2022 09/18/2023 1 1 Additional Source Comments (unrecognized sect ion and content) No Status Records FoundNo Status Records FoundNo Status Records FoundNo Status Records FoundNo Status Records FoundNo Status Records FoundNo Status Records Found INFORMATION SOURCE (unrecogn ized section and content) DATE CREATED AUTHOR 09/21/2017 [facility] DATE CREATED AUTHOR AUTHOR'S ORGANIZ ATION 04/08/2022 [facility] DATE CREATED AUTHOR AUTHOR'S ORGANIZ ATION 09/27/2022 [facility] DATE CREATED AUTHOR AUTHOR'S ORGANIZ ATION 10/22/2023 [facility] DATE CREATED AUTHOR AUTHOR'S ORGANIZ ATION 11/19/2023 [facility] DATE CREATED AUTHOR AUTHOR'S ORGANIZ ATION 01/22/2024 [facility] DATE CREATED AUTHOR AUTHOR'S ORGANIZ ATION 02/20/2024 [facility] Care Teams (unrecognized sec tion and content) Team Status: Active Member Role Status Dates Fidel Abbott MD Primary Care Provider Active Team Status: Inactive Member Role Status Dates Fidel Abbott MD Primary Care Provider Active Cathy Brar MD Attending Provider Active General Cargo Clerk Relationship Specialty Start Date End Date Fidel Abbott MD PCP - General 07/03/15 General Cargo Clerk Relationship Specialty Start Date End Date Fidel Abbott MD PCP - General 07/03/15 General Cargo Clerk Relationship Specialty Start Date End Date Fidel Abbott MD PCP - General 07/03/15 General Cargo Clerk Relationship Specialty Start Date End Date Fidel Abbott MD PCP - General 07/03/15 General Cargo Clerk Relationship Specialty Start Date End Date Fidel Abbott MD PCP - General 07/03/15 General Cargo Clerk Relationship Specialty Start Date End Date Fidel Abbott MD PCP - General Family Medicine 12/10/22 Fidel Abbott MD [address] [place] [address] PCP - [employer] 03/29/23 General Cargo Clerk Relationship Specialty Start Date End Date Fidel Abbott MD PCP - General Family Medicine 12/10/22 Fidel Abbott MD [address] [place] [phone] PCP [employer] 03/29/23 General Cargo Clerk Relationship Specialty Start Date End Date Fidel Abbott MD [address] [place] [phone] PCP - [employer] 03/29/23 Fidel Abbott MD [address] [place] [address] PCP General Family Medicine 05/12/23 Team Status: Inactive [...] July 08, 2023 End: July 08, 2023 General Cargo Clerk Relationship Specialty Start Date End Date Fidel Abbott MD PCP - General 12/28/16 General Cargo Clerk Relationship Specialty Start Date End Date Fidel Abbott MD PCP - General 12/28/16 General Cargo Clerk Relationship Specialty Start Date End Date Fidel Abbott MD [address] [place] [phone] PCP - [employer] 02/26/23 Fidel Abbott MD [address] [place] [address] PCP - General Family Medicine 11/18/23 General Cargo Clerk Relationship Specialty Start Date End Date Fidel Abbott MD [address] [place] [address] PCP - [employer] 02/26/23 Fidel Abbott MD [address] [place] [address] PCP - General Family Medicine 11/18/23 Team Status: Inactive Member Role [...] kidney injury (HCC) Matias Doss MD [address] [place] [address] [facility] [id number] [place] [address] Referral ID Status Reason Start Date Expiration Date Visits Re quested Visits Authorized [id number] 1 1 Specialty Diagnoses / Procedures Referred By Farzaneh sy Referred To Contact Radiology Diagnoses Cauda equina syndrome (HCC) Neurogenic bladder Urinary retention Urinary incontinence without sensory awareness Procedures US RENAL COMPLETE Ashlee Erwin, TECHNOLOGY OFFICER - ENVIRONMENTAL FIELD TEAM MEMBER [address] [place] [address] Referral ID Status Reason Start Date Expiration Date Visits Re quested Visits Authorized [id number] Open 09/18/2022 09/18/2023 1 1 Reason Comments [...] Orders)0900 (Automatically Held - Provider: Warren Autohold)0959 ([facility] Unhold - Provider: Dragan Voss, RENETTA)1234 (Given - Provider: Linh Chan) atenolol (TENORMIN) tablet 100 mg 100 mg, Oral, DAILY, First dose on Wed06/23/22 at 0900, Until Discontinued 09 (Given - Provider: Heri Valdez RN) 0723 (Given - Provider: Heri Valdez RN) 0812 ([facility] Hold - Provider: Warren Autohold - Reason: Unreviewed Transfer Orders)0900 (Automatically Held - Provider: Warren Autohold)0959 ([facility] Unhold - Provider: Dragan Voss RN)1233 (Given - Provider: Linh Chan) citalopram (CELEXA) tablet 40 mg 40 mg, Oral, DAILY, First dose on Wed06/23/22 at 0900, Until Discontinued 09 (Given - Provider: Heri Valdez RN) 0723 (Given - Provider: Heri Valdez RN) 0812 (MAR Hold - Provider: Warren Autohold - Reason: Unreviewed Transfer Orders)0900 (Automatically Held - Provider: Warren Autohold)0959 ([facility] Unhold - Provider: Dragan Voss RN)1235 (Given - Provider: Linh Chan) clindamycin (CLEOCIN) 600 mg in dextrose 5 [...] June Rocio)2045 (Due - Provider: Linda Ibrahim FORMERLY [...] dose on Wed06/22/22 at 2100, Until Discontinued 1619 (Not Given - Provider: Heri Valdez RN [...] Transfer Orders)0900 (Automatically Held - Provider: Warren Kinghold)0959 (MAR Unhold - Provider: Dragan Voss RN) [...] less into rate field of order. 0812 ([facility] - Pro vider: [facility] [employer] - Reason: Unreviewed Transfer Orders)0959 ([facility] Unhold - Provider: Dragan Voss RN) 0.9 % sodium chloride infusion IntraVENous, at 240 mL/hr, Administer over 10 Minutes, PRN, blood administration, Starting on Wed06/24/22 at 0733, For 1 dose, For use in priming line prior to transfusion (prime via gravity) and flush line post transfusion ONLY. Discontinue once line has been cleared of remaining blood product. 0812 ([facility] - Pro vider: [facility] [employer] - Reason: Unreviewed Transfer Orders)0959 ([facility] Unhold - Provider: Dragan Voss RN) acetaminophen (TYLENOL) suppository 650 mg(Linked Group 1) 650 mg, Rectal, EVERY 6 HOURS PRN, Starting on Wed06/22/22 at 2017, Until Discontinued, Pain Mild (1-3), Fever, For temp greater than 100.4 F (38 C), Administer if oral route cannot be used. 0812 ([facility] - Pro vider: [facility] [employer] - Reason: Unreviewed Transfer Orders)0959 ([facility] Unhold - Provider: Dragan Voss RN) acetaminophen (TYLENOL) tablet 650 mg(Linked Group 1) 650 mg, Oral, EVERY 6 HOURS PRN, Starting on Wed06/22/22 at 2017, Until Discontinued, Pain Mild (1-3), Fever, For temp greater than 100.4 F (38 C), Maximum dose of acetaminophen is 4000 mg from all sources in 24 hours. 0812 ([facility] - Pro vider: [facility] [employer] - Reason: Unreviewed Transfer Orders)0959 ([facility] Unhold - Provider: Dragan Voss RN) ondansetron (ZOFRAN) injection 4 mg(Linked Group 2) 4 mg, IntraVENous, EVERY 6 HOURS PRN, Starting on Wed06/22/22 at 2017, Until Discontinued, Nausea, Vomiting, Administer if oral route cannot be used. 0812 ([facility] Hold - Pro vider: [facility] [employer] - Reason: Unreviewed Transfer Orders)0959 ([facility] Unhold - Provider: Dragan Voss RN) ondansetron (ZOFRAN-ODT) disintegrating tablet 4 mg(Linked Group 2) 4 mg, Oral, EVERY 8 HOURS PRN, Starting on Wed06/22/22 at 2017, Until Discontinued, Nausea, Vomiting 0812 ([facility] Hold - Pro vider: [facility] [employer] - Reason: Unreviewed Transfer Orders)0959 ([facility] Unhold - Provider: Dragan Voss RN) polyethylene glycol (GLYCOLAX) packet 17 g 17 g, Oral, DAILY PRN, Starting on Wed06/22/22 at 2017, Until Discontinued, Constipation, First line therapy for constipation 0812 ([facility] Hold - Pro vider: [facility] [employer] - Reason: Unreviewed Transfer Orders)0959 ([facility] Unhold - Provider: Dragan Voss RN) sodium chloride flush 0.9 % injection 10 mL 10 mL, IntraVENous, PRN, Starting on Wed06/22/22 at 2017, Until Discontinued, Line Care, After every IV line use 0812 ([facility] Hold - Pro vider: [facility] [employer] - Reason: Unreviewed Transfer Orders)0959 ([facility] Unhold - Provider: Dragan Voss RN) Linked [...] BE BASED ON THE PRIMARY CLINICAL RECORDS. [employer] provides no warranty or guarantee of the accuracy or completeness of information in this document.
--- NOTE | 2024-03-10 10:54 | P.GSHP_ITS ---
History of Present Illness History of Present Illness Chief complaint: Type 11 Diabetes with Ulcer Narrative: Presents today with chronic nonhealing ulcer of his bilateral lower extremities he is scheduled with Dr. Bahena for surgical debridement of bilateral lower leg wounds on 03/16/2024. Diagnosis is type 2 diabetes mellitus with foot ulcer of the left foot and type 2 diabetes mellitus to us with right heel ulcer. Review of Systems ROS Narrative REVIEW OF SYSTEMS: Negative except as stated in HPI, ten or more systems reviewed. Constitutional: No fever, chills, Integumentary: Reports nonhealing ulcers bilateral heels ENT: No sore throat or epistaxis Cardiovascular: No edema, chest pain, palpitations, or activity intolerance Respiratory: No shortness of breath, cough, or wheezing Musculoskeletal: No joint pain or swelling Gastrointestinal: No abdominal pain, diarrhea, or vomiting Genitourinary: No dysuria or hematuria Neurological: Paraplegia with lower extremity weakness Psychiatric: No mood changes REVIEW OF SYSTEMS: Negative except as stated in HPI, ten or more systems reviewed. Constitutional: No fever, chills, weakness ENT: No sore throat or epistaxis Cardiovascular: No edema, chest pain, palpitations, or activity intolerance Respiratory: No shortness of breath, cough, or wheezing Musculoskeletal: No swelling Gastrointestinal: No abdominal pain, constipation, diarrhea, or vomiting Genitourinary: No dysuria or hematuria Neurological: No numbness, tingling, weakness, or headache Psychiatric: No mood changes [facility] Medical History (Updated 03/10/24 @ 11:13 by Cassidy Hughes) Pressure ulcer of both heels ?L89.619 - Pressure ulcer of right heel, unspecified stage (ICD-10) ?L89.629 - Pressure ulcer of left heel, unspecified stage (ICD-10) History of blood transfusion ?Z92.89 - Personal history of other medical treatment (ICD-10) Sacral decubitus ulcer ?L89.159 - Pressure ulcer of sacral region, unspecified stage (ICD-10) Cellulitis ?L03.90 - Cellulitis, unspecified (ICD-10) Anemia ?D64.9 - Anemia, unspecified (ICD-10) Iron deficiency anemia ?D50.9 - Iron deficiency anemia, unspecified (ICD-10) Neurogenic bladder ?N31.9 - Neuromuscular dysfunction of bladder, unspecified (ICD-10) Disc degeneration, lumbosacral ?M51.37 - Other intervertebral disc degeneration, lumbosacral region (ICD-10) Diabetes 1.5, managed as type 2 ?E13.9 - Other specified diabetes mellitus without complications (ICD-10) HTN (hypertension) ?I10 - Essential (primary) hypertension (ICD-10) Cauda equina spinal cord injury ?S34.3XXA - Injury of cauda equina, initial encounter (ICD-10) Paraplegic spinal paralysis ?G82.20 - Paraplegia, unspecified (ICD-10) Surgical History Conesus filter in place ?Z95.828 - Presence of other vascular implants and grafts (ICD-10) History of urethrotomy ?Z98.890 - Other specified postprocedural states (ICD-10) History of cystoscopy ?Z98.890 - Other specified postprocedural states (ICD-10) History of back surgery ?Z98.890 - Other specified postprocedural states (ICD-10) History of appendectomy ?Z90.49 - Acquired absence of other specified parts of digestive tract (ICD- 10) Family History (Updated 03/10/24 @ 10:41 by Cassidy Hughes) Mother Family history of hypertension Multiple system atrophy Social History (Updated 01/11/23 @ 07:48 by Kirti Bertrand) Within the past year, how often did you have a drink containing alcohol: never Within the past year, how often did you have six or more drinks on one occasion: never Score interpretation: A score less than 4 is consistent with normal alcohol consumption. Smoking status: Never smoker Non-prescribed substance use: denies use Previous occupational history: retired Highest level of school completed/degree received: high school graduate Are you now , , , , never or living with a partner: In a typical week, how many times do you talk on the telephone with family, fri ends, or neighbors: 3 or more times per week How often do you get together with friends or relatives: twice per week How often do you attend baptism or rastafari services: never Do you belong to any clubs or organizations such as baptism groups unions, fraternal or athletic groups, or school groups: no Total score: 2 Score interpretation: A score of greater than or equal to 2 indicates the lowest level of social isolation. Little interest or pleasure in doing things: not at all Feeling down, depressed, or hopeless: not at all Feel stressed/tense/nervous/anxious/difficulty sleeping: not at all Do you think of yourself as: straight/heterosexual Gender Identity: male Meds Home Medications and Allergies Home Medications ?Medication ?Instructions ?Recorded ?Confirmed ?Type amlodipine 10 mg tablet 10 mg PO DAILY 10/06/22 03/10/24 History atenolol 100 mg tablet 100 mg PO DAILY 10/06/22 03/10/24 History citalopram 40 mg tablet 40 mg PO DAILY 10/06/22 03/10/24 History glipizide 10 mg tablet 10 mg PO DAILY 10/06/22 03/10/24 History lisinopril 20 mg tablet 20 mg PO DAILY 10/06/22 03/10/24 History sitagliptin phosphate 100 mg 100 mg PO DAILY 10/06/22 03/10/24 History tablet (Januvia) atorvastatin 40 mg tablet 40 mg PO DAILY 06/30/23 03/10/24 History hydroxyzine HCl 50 mg tablet 50 mg PO Q6H PRN itching 03/10/24 03/10/24 History Allergies Allergy/AdvReac Type Severity Reaction Status Date / Time vancomycin Allergy renal Verified 03/10/24 10:14 failure omadacycline AdvReac Unknown itching Verified 03/10/24 10:14 Exam Narrative Exam Narrative: Constitutional: Awake, alert, comfortable, well-appearing, nontoxic, interactive, vital signs as charted Head: Normocephalic, atraumatic Eyes: Conjunctiva and lids normal to inspection, pupils normal ENT: Tympanic membranes pearly osborne, nonerythematous, noninjected, naris patent, posterior oropharynx clear, oral mucosa moist Neck: Supple, normal appearance, normal range of motion, no meningeal signs, no lymphadenopathy, no carotid bruit Respiratory: No respiratory distress, breath sounds clear Cardiovascular: Regular rate and rhythm, strong and regular heart tones Abdomen: Nontender, normal bowel sounds, soft, Musculoskeletal: Paraplegia wheelchair bound and nonambulatory Skin: No rashes or induration, no lesions, only visible skin inspected please see Dr. Bahena's examination of bilateral lower extremity heel from physical exam completed on February 16, 2024. Dressings remain intact without drainage or discharge noted. Neuro: Paraplegia Psychiatric: Oriented ?3, normal affect Assessment and Plan Assessment and Plan (1) Type 2 diabetes mellitus with left diabetic foot ulcer: (2) Ulcer of right foot due to type 2 diabetes mellitus: Plan Surgical debridement of bilateral lower leg wounds scheduled with Dr. Bubba Gruber on 03/16/2024.
[2024-03-10 10:56] LABS: Basophils Absolute Auto 0.1 10^3/uL (0.0-0.1); Basophils Percent Auto 0.6 % (0.2-2.0); Eosinophils Absolute Auto 1.2 10^3/uL (0.0-0.7); Eosinophils Percent Auto 8.8 % (0.9-7.0); Hematocrit 26.9 % (42.0-54.0); Hemoglobin 8.1 g/dL (14.0-18.0); Immature Granulocytes Abs Auto 0.12 10^3/uL (0.00-0.03); Immature Granulocytes Pct Auto 0.9 % (0.0-0.5); Lymphocytes Absolute Auto 1.6 10^3/uL (1.2-3.8); Lymphocytes Percent Auto 12.2 % (20.5-60.0); Mean Corpuscular HGB Conc 30.1 g/dL (29.9-35.2); Mean Corpuscular Hemoglobin 24.9 pg (25.9-34.0); Mean Corpuscular Volume 82.8 fL (80.0-94.0); Mean Platelet Volume 8.9 fL (9.5-13.5); Monocytes Percent Auto 7.3 % (1.7-12.0); Neutrophils Absolute Auto 9.3 10^3/uL (1.4-6.5); Neutrophils Percent Auto 70.2 % (43.0-75.0); Platelet Count 317 10^3/uL (150-450); Red Blood Count 3.25 10^6/uL (4.70-6.10); White Blood Count 13.2 10^3/uL (4.0-11.0)
[2024-03-10 11:17] LABS: Calcium 8.7 mg/dL (8.5-10.1); Carbon Dioxide 26.2 mmol/L (21.0-32.0); Chloride 106 mmol/L (98-107); Estimated GFR (African America 35 (>=60 mL/min/1.73m^2); Estimated GFR (Non-African Ame 29 (>=60 mL/min/1.73m^2); Glucose 87 mg/dL (74-106); Potassium 4.2 mmol/L (3.5-5.1); Sodium 141 mmol/L (136-145)
== END 2024-03-10 09:59 | disposition home or self-care (01) ==
LOC: PST 09:58
PROVIDERS: PCP Family Medicine; Visit Provider Podiatrist Foot & Ankle Surgery
DX: Z01.810 Encounter for preprocedural cardiovascular examination (principal); Z01.812 Encounter for preprocedural laboratory examination; Z01.818 Encounter for other preprocedural examination; E11.621 Type 2 diabetes mellitus with foot ulcer
CPT/HCPCS: 80048; 85025; 93005; G0463

== ENCOUNTER 2024-03-16 08:06 | Day surgery (SDC) | payer BC, MEDICARE, SELFPAY ==
[2024-03-10 10:18] VITALS: BP 131/72; PULSE 52; TEMP 36.2; O2SAT 52; BMI 34.7
--- OUTSIDE RECORDS SUMMARY | 2024-03-16 08:15 | XMS_ITS | CCD ---
Author Organization [facility] Care Team Providers Care Millinery Copyist Name Role Phone WESTONMICHAELA Unavailable Unavailable NADERER, [...] NADERER, DR FIDEL Tellez Primary Care Unavailable PREEMPTION, DR KHADAR Edwards Consulting Unavailable BRAR, DR CATHY Edwards Consulting Unavailable MD Fidel Abbott Primary Care Provider MD Cathy Brar Attending Provider Fidel Abbott MD Primary Care Provider MD Fidel Abbott Primary Care Provider MD Cathy Brar Attending Provider [phone] Fidel Abbott MD Primary Care Provider SHELLY [...] Unavailabl e ASHLEE ERWIN Referring Unavailable NADERER, FIDLE Primary Care Physician Milena NAZARIO, Fidel Primary Care Provider [phone] Fidel Abbott MD Unavailable Milena NAZARIO, Fidel Primary Care Provider MD Fidel Abbott Primary Care Provider [phone] MD Cathy Brar Attending Provider [phone] CRISTIANA Moffett Attending Provider CRISTIANA Bahena Attending Provider Khadar Guerrero Referring Unavailable NADERER, FIDEL Primary Care Unavailable NADERER, FIDEL Referring Unavailable Jovanny VILLA Attending Unavailable Jovanny VILLA Attending Unavailable ALLNE, Jovanny R Attending Unavailable VILLA, Jovanny R [...] Care Provider Nina River MD Attending Provider [phone] Cathy Brar MD Attending Provider [phone] Brar, Cathy Admitting Unavailable Kendell Brart Attending Unavailable Milena, Fidel Primary Care Unavailable Jonathan Moffett Admitting Unavailable Jonathan Moffett Attending Unavailable Fidel Abbott Primary Care Unavailable Bubba Bahena Admitting Unavailable Bubba Bahena Attending Unavailable Cathy Brar Admitting Unavailable Maykel, Cathy Attending Unavailable Milena, Fidel Primary Care Unavailable Aleta, Nina Admitting Unavailable Kris Riverva Attending Unavailable Fidel Abbott Primary Care Unavailable Brar, Cathy Admitting Unavailable Cathy Brar Attending Unavailable Fidel Abbott Primary Care Unavailable Allergies Allergy Classification Reported Allergen(s) Allergy Type Date of Onset Reaction(s) Facility (7 sources) Vancomycin; 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: [VANCOMYCIN] Drug Allergy 6 Shut kidneys down [facility] Repository (17 sources) Vancomycin Drug Allergy 6 Other, Unknown, Other (See Comments) [facility] (13 sources) omadacycline; 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: [omadacycl] Drug allergy 3 Renal pain (finding) [facility] (4 sources) ferrous sulfate; 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: [ferrous sulfate] Drug Allergy 3 Itching [facility] (1 source) Vancomycin Drug Allergy 3 [facility] Repository Medications Current Medications Medication Drug Class(es) Dates Sig (Normalized) Sig (Original) Acetaminophen (1 source) Start: 06-22-2022 acetaminophen (TYLENOL) tablet 650 mg amLODIPine 10 mg oral tablet (20 sources) Dihydropyridine Calcium Channel [place] Start: 03-06-2024 take 1 tablet by mouth once daily amLODIPine (Norvasc) 10 MG tablet Indications: Primary hypertension (CMS/HCC) Take 1 tablet by mouth once daily 30 tablet 03/06/2024 Active Start: 12-07-2016 End: 12-08-2016 Amlodipine Discontinued [...] at Discharge) atorvastatin 40 mg oral tablet (13 sources) HMG-CoA Reductase Inhibitor Start: 04-06-2023 End: 04-05-2024 take 1 tablet by mouth in the morning atorvastatin (Lipitor) 40 MG tablet Indications: Dyslipidemia (CMS/HCC) TAKE 1 TABLET BY MOUTH IN THE MORNING 30 tablet 03/01/2024 Active citalopram 40 mg oral tablet (20 sources) Serotonin Reuptake Inhibitor Start: 06-23-2022 take 40 mg by mouth once daily 40 mg, Oral, DAILY, First dose on Wed06/23/22 at 0900, Until Discontinued Start: 09-22-2016 End: 08-10-2024 take 1 tablet by mouth once daily citalopram (CeleXA) 40 MG tablet Indications: Major depressive disorder, recurrent episode, mild (HCC) ([facility]/HCC) Take 1 tablet (40 mg) by mouth [...] hyperglycemia, without long-term current use of insulin (CMS/[facility]) Take 1 tablet (10 mg) by mouth in the morning and 1 tablet (10 mg) before bedtime. 60 tablet 09/02/2023 Active hydrOXYzine hydrochloride 50 mg oral tablet (7 sources) Antihistamine Start: 02-01-2024 End: 03-13-2024 take 1 tablet by mouth four times daily as needed hydrOXYzine HCl (Atarax) 50 MG tablet Indications: Pruritus TAKE 1 TABLET BY MOUTH 4 TIMES DAILY NEEDED FOR ITCHING 30 tablet 5 03/13/2024 Active Start: 01-17-2024 End: 01-20-2024 take 1 [...] (20 sources) Angiotensin Converting Enzyme Inhibitor Start: 03-01-2024 take 1 tablet by mouth once daily lisinopril 20 MG tablet Indications: Benign hypertension (CMS/HCC) Take 1 tablet by mouth once daily 30 tablet 03/01/2024 Active Start: 01-05-2024 take 1 tablet by mack th once daily lisinopril 20 MG tablet Indications: [...] Oxybutynin Chloride Active 15 MG PO Daily 90 February 13, 2023 1:00am Start: 11-09-2022 oxybutynin [...] 01/23/2024 Active SITagliptin 100 mg oral tablet (15 sources) Dipeptidyl Peptidase 4 Inhibitor Start: 03-01-2024 take 1 tablet by mouth once daily Januvia 100 MG tablet Indications: Type 2 diabetes mellitus with hyperglycemia, without long-term current use of insulin (CMS/HCC) Take 1 tablet by mouth once daily 30 tablet 03/01/2024 Active Start: 07-29-2021 take 1 tablet by mack th once daily Januvia 100 MG tablet Indications: Type 2 diabetes mellitus with hyperglycemia, without long-term current use of insulin (CMS/HCC) Take 1 tablet by mouth once daily 30 tablet 01/05/2024 Active 1000 ml sodium chloride 9 mg [...] tablet Discontinued 1 TAB PO Twice daily 28 October 11, 2017 11:00pm October 24, 2017 11:00pm October 25, 2017 11:01pm betamethasone 0.001 mg/mg topical ointment (5 sources) Corticosteroid Start: 11-17-2018 End: 03-23-2019 Betamethasone Valerate 0.1 % ointment Discontinued 1 APPLIC TOPICAL Daily as needed for skin irritation 45 November 17, 2018 9:49am March 23, 2019 [...] procedure, # 2 tab(s), Refills(s) 0, Pharmacy: [id number], 180, cm, 11/09/22 [...] Called to pharmacy 09/09/2021 polyethylene glycol 3350 10201 mg powder for oral solution (1 source) Osmotic Laxative Start: 06-22-2022 17 g, Oral, D AILY PRN, Starting on Wed06/22/22 at 2018, Until Discontinued, Constipation First line therapy for constipation polyethylene glycol 3350 672896 mg / potassium chloride 2970 mg / sodium bicarbonate 6740 mg / sodium chloride 5860 mg / sodium sulfate 81086 mg powder for oral solution (1 source) [...] GM/60ML suspension 45 g sodium zirconium cyclosilicate 31094 mg powder for oral suspension (1 source) [...] 9:21am Start: 12-07-2016 End: 12-08-2016 Bactrim Discontinued [facility] 2016 12:00am December 08, 2016 2:50pm Start: 12-07-2016 End: 12-08-2016 Bactrim Discontinued [facility] 2016 11:00pm December 08, 2016 1:50pm triamcinolone acetonide 5 mg/ml topical cream (3 sources) Corticosteroid Start: 02-07-2023 End: 05-04-2023 Triamcinolone Acetonide 0.5 % cream Discontinued 0.5 APPLIC TOPICAL Three times daily February 07, 2023 12:00am May 04, 2023 11:25am Problems Active Problems Problem Classification Problem Date Documented Date Episodic/Chronic Allergic reactions (7 sources) Urticaria; 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: [Urticaria, unspecified] Onset: 4 01-20-2024 Episodic Chronic kidney disease (19 sources) Chronic kidney disease; 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: [Chronic kidney [...] Onset: 4 Chronic Disorders of lipid metabolism (17 sources) Mixed hyperlipidemia; 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: [Mixed hyperlipidemia] Onset: 6 04-25-2015 Chronic Essential hypertension (20 sources) Hypertensive disorder; 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: [Essential (primary) hypertension] Onset: 4 12-24-2016 Chronic Comment on above: d/t Vancomycin use a ffected kidneys Gastritis and duodenitis (10 sources) Chronic superficial gastritis; 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: [Chronic superficial 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] Onset: 4 04-06-2023 Chronic Genitourinary symptoms and ill-defined conditions (12 sources) Incontinence without sensory awareness; 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: [Incontinence without sensory awareness] Onset: 3 Chronic Genitourinary symptoms and ill-defined conditions (5 sources) Retention of urine; 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: [Retention of urine, unspecified] Onset: 3 Episodic Infective arthritis and osteomyelitis (except that caused by tuberculosis or sexually transmitted disease) (20 sources) Osteomyelitis of right foot; 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: [Osteomyelitis, unspecified] Onset: 7 Resolved: 8 12-28-2016 Chronic Mood disorders (15 sources) Depressive disorder; 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: [Depression] Onset: 4 12-24-2016 Chronic Other diseases of bladder and urethra (8 [...] [Venous insufficiency (chronic) (peripheral)] 05-06-2023 Episodic Other inflammatory condition of skin (7 sources) Pruritus, unspecified; 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: [Unspecified pruritic disorder] Onset: 4 Resolved: 4 11-18-2023 Episodic Other injuries and conditions due to [...] Sleep apnea 11-09-2022 Chronic Residual codes; unclassified (10 sources) Obstructive sleep apnea syndrome; 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: [Obstructive [...] Acute and unspecified renal failure (16 sources) [id number] renal failure; 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: [Acute kidney failure, unspecified] [...] encounter] Onset: 02-25-2011 01-07-2017 Episodic Other aftercare (6 sources) Long-term current use of drug therapy; 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: [Other continuous churn buttermaker (current) drug therapy] Onset: 11-18-2023 11-18-2023 Episodic Other skin disorders (10 sources) Vesicular eczema; 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: [Dyshidrosis [pompholyx]] Onset: 04-06-2023 04-06-2023 Episodic Septicemia (except in labor) (5 sources) Sepsis due to methicillin resistant Staphylococcus aureus; 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: [Sepsis due to Methicillin resistant Staphylococcus aureus] Onset: 09-09-2016 Resolved: 05-26-2017 05-26-2017 Episodic Urinary tract infections (10 sources) Recurrent urinary tract infection; 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: [Urinary tract infection, site not specified] Onset: 04-06-2023 04-06-2023 Episodic Results Test Name Value Interpretation Reference Range Facility ALL CBC WITH AUTO DIFFon BASOPHILS ABSOLUTE AUTO 0.1 [facility] Basophils/100 WBC (Bld) 0.6 % 0.2 - 2.0 % [facility] Eosinophils/100 WBC (Bld) 8.8 % High 0.9 - 7.0 % [facility] Erythrocyte distribution width (RBC) [Ratio] 14 % 11.0 - 15.0 % [facility] Hematocrit (Bld) [Volume fraction] 26.9 % Low 42.0 - 54.0 % [facility] Hemoglobin (Bld) [Mass/Vol] 8.1 g/dL Low 14.0 - 18.0 g/dL [facility] IMMATURE GRANULOCYTES ABS AUTO 0.12 High [facility] Immature granulocytes/100 WBC (Bld) 0.9 % High 0.0 - 0.5 % [facility] Interpretation and review of laboratory results Abnormal [facility] LYMPHOCYTES ABSOLUTE AUTO 1.6 [facility] Lymphocytes/100 WBC (Bld) 12.2 % Low 20.5 - 60.0 % [facility] MCH (RBC) [Entitic mass] 24.9 pg Low 25.9 - 34.0 pg [facility] MCHC (RBC) [Mass/Vol] 30.1 g/dL 29.9 - 35.2 g/dL [facility] MCV (RBC) [Entitic vol] 82.8 fL 80.0 - 94.0 fL [facility] MONOCYTES ABSOLUTE AUTO 1 High [facility] Monocytes/100 WBC (Bld) 7.3 % 1.7 - 12.0 % [facility] NEUTROPHILS ABSOLUTE AUTO 9.3 High [facility] Neutrophils/100 WBC (Bld) 70.2 % 43.0 - 75.0 % [facility] Platelet mean volume (Bld) [Entitic vol] 8.9 fL Low 9.5 - 13.5 fL [facility] TBH EO # 1.2 High [facility] TBH PLT 317 [facility] TB RBC 3.25 Low [facility] TB WBC 13.2 High [facility] ALL SED RATEon 02-14-2024 Interpretation and review of laboratory results Abnormal [facility] TBH SED RATE 67 High NINF [facility] Basic Metabolic Panelon 01-27 Anion gap [Moles/Vol] 9.9 mmol/L Normal 6.0-15.0 The [facility]placed [facility] Comment on above: Performed By: #### B MP, FE PRO, B12, ESR, CRP, CBC #### [facility] [address] [place] [address] [place] Calcium [Mass/Vol] 7.6 mg/dL Low 8.6-10.3 [facility] Comment on above: Performed By: #### B MP, FE PRO, B12, ESR, CRP, CBC #### [facility] [address] [place] [id number] [place] Chloride [Moles/Vol] 106 mmol/L Normal 98-107 The [facility] Comment on above: Performed By: #### B MP, FE PRO, B12, ESR, CRP, CBC #### [address] CO2 [Moles/Vol] 26.1 mmol/L Normal 21.0-31.0 The [facility] Comment on above: Performed By: #### B MP, FE PRO, B12, ESR, CRP, CBC #### [address] Creatinine [Mass/Vol] 1.59 mg/dL High 0.70-1.30 The [facility] Comment on above: Performed By: #### B MP, FE PRO, B12, ESR, CRP, CBC #### [place] [address] [place] GFR/1.73 sq M.predicted MDRD (S/P/Bld) [Vol rate/Area] 48.779 mL/min/{1.73_m2} Normal [facility] Comment on above: Performed By: #### B MP, FE PRO, B12, ESR, CRP, CBC #### [address] Glucose [Mass/Vol] 128 mg/dL High 70-100 [facility] Comment on above: Result Comment: [place] Glucose Reference Range is dependent on time and content of last meal. Glucose of more than 200 mg/dL in a nonstressed, ambulatory subject supports the diagnosis of Diabetes Mellitus. ADA recommended reference range Performed By: #### B MP, FE PRO, B12, ESR, CRP, CBC #### [address] Potassium [Moles/Vol] 4.0 mmol/L Normal 3.5-5.1 The [facility] Comment on above: Performed By: #### B MP, FE PRO, B12, ESR, CRP, CBC #### [address] Sodium [Moles/Vol] 138 mmol/L Normal 136-145 [facility] Comment on above: Performed By: #### B MP, FE PRO, B12, ESR, CRP, CBC #### [facility] [address] Urea nitrogen [Mass/Vol] 24 mg/dL Normal 7-25 [facility] Comment on above: Performed By: #### B MP, FE PRO, B12, ESR, CRP, CBC #### [facility] [address] [place] [address] [place] Basophils Auto (Bld) [#/Vol] Ordered By: Nina Aleta on 02-08-2024 Basophils (Bld) [#/Vol] Automated basophil count 0.0-0.2 [facility] Basophils/100 WBC Auto (Bld) Ordered By: Nina Aleta on 02-08-2024 Basophils/100 WBC (Bld) Automated basophil % . [facility] C reactive protein [Mass/vol ume] in Serum or PlasmaOrdered By: Nnia Aleta on 02-08-2024 CRP [Mass/Vol] C reactive protein [Mass/volume] in Serum or Plasma High 0.0-0.5 [facility] C-Reactive Proteinon 024 C-Reactive Protein 10.7 mg/dL High 0.0-0.5 [facility] Comment on above: Performed By: #### B MP, FE PRO, B12, ESR, CRP, CBC #### [facility] [address] Calcium [Mass/volume] in Ser um or PlasmaOrdered By: Nina Aleta on 02-08-2024 Calcium [Mass/Vol] Calcium [Mass/volume ] in Serum or Plasma Low 8.6-10.3 [facility] Carbon dioxide, total [Moles /volume] in Serum or PlasmaOrdered By: Nina Aleta on 02-08-2024 CO2 [Moles/Vol] Carbon dioxide, tota l [Moles/volume] in Serum or Plasma 21.0-31.0 [facility] Chloride [Moles/volume] in S tremayne or PlasmaOrdered By: Nina Aleta on 02-08-2024 Chloride [Moles/Vol] Chloride [Moles/vol ume] in Serum or Plasma 98-107 [facility] Complete Blood Count Auto Di ffon 02-08-2024 Basophils (Bld) [#/Vol] 0.0 10*3/uL Normal 0.0-0.2 The [facility] Comment on above: Performed By: #### B MP, FE PRO, B12, ESR, CRP, CBC #### [address] Basophils/100 WBC (Bld) 0.4 % Normal . [facility] Comment on above: Performed By: #### B MP, FE PRO, B12, ESR, CRP, CBC #### [address] Eosinophils (Bld) [#/Vol] 0.2 10*3/uL Normal 0.0-0.45 [facility] Comment on above: Performed By: #### B MP, FE PRO, B12, ESR, CRP, CBC #### [address] Eosinophils/100 WBC (Bld) 2.4 % Normal . [facility] Comment on above: Performed By: #### B MP, FE PRO, B12, ESR, CRP, CBC #### [address] Erythrocyte distribution width (RBC) [Ratio] 15.2 % High 12.0-14.8 [facility] Comment on above: Performed By: #### B MP, FE PRO, B12, ESR, CRP, CBC #### [address] Hematocrit (Bld) [Volume fraction] 23.1 % Low 38.8-50.0 [facility] Comment on above: Performed By: #### B MP, FE PRO, B12, ESR, CRP, CBC #### [address] Hemoglobin (Bld) [Mass/Vol] 7.8 g/dL Low 13.0-17.0 [facility] Comment on above: Performed By: #### B MP, FE PRO, B12, ESR, CRP, CBC #### [address] Lymphocytes (Bld) [#/Vol] 0.7 10*3/uL Low 1.00-4.8 [facility] Comment on above: Performed By: #### B MP, FE PRO, B12, ESR, CRP, CBC #### [address] Lymphocytes/100 WBC (Bld) 7.0 % Normal . [facility] Comment on above: Performed By: #### B MP, FE PRO, B12, ESR, CRP, CBC #### [address] MCH (RBC) [Entitic mass] 26.8 pg Low 27.5-35.2 [facility] Comment on above: Performed By: #### B MP, FE PRO, B12, ESR, CRP, CBC #### [address] MCV (RBC) [Entitic vol] 79.5 fL Low 83.5-101 [facility] Comment on above: Performed By: #### B MP, FE PRO, B12, ESR, CRP, CBC #### [address] Mean Corpuscular HGB Conc 33.7 g/dL Normal 32.5-35.6 [facility] Comment on above: Performed By: #### B MP, FE PRO, B12, ESR, CRP, CBC #### [address] Monocytes (Bld) [#/Vol] 0.5 10*3/uL Normal 0.0-0.8 [facility] Comment on above: Performed By: #### B MP, FE PRO, B12, ESR, CRP, CBC #### [address] Monocytes/100 WBC (Bld) 4.8 % Normal . [facility] Comment on above: Performed By: #### B MP, FE PRO, B12, ESR, CRP, CBC #### [address] Neutrophils (Bld) [#/Vol] 9.0 10*3/uL High 1.8-7.7 [facility] Comment on above: Performed By: #### B MP, FE PRO, B12, ESR, CRP, CBC #### [address] Neutrophils/100 WBC (Bld) 85.4 % Normal . [facility] Comment on above: Performed By: #### B MP, FE PRO, B12, ESR, CRP, CBC #### [address] NRBC% 0.0 /100{WBC} Normal 0-0.5 The [facility] Comment on above: Performed By: #### B MP, FE PRO, B12, ESR, CRP, CBC #### [address] Platelet mean volume (Bld) [Entitic vol] 6.7 fL Normal 6.6-10.1 The [facility] Comment on above: Performed By: #### B MP, FE PRO, B12, ESR, CRP, CBC #### [address] Platelets (Bld) [#/Vol] 220 10*3/uL Normal 150-450 [facility] Comment on above: Performed By: #### B MP, FE PRO, B12, ESR, CRP, CBC #### [address] RBC (Bld) [#/Vol] 2.91 10*6/uL Low 3.90-5.60 The [facility] Comment on above: Performed By: #### B MP, FE PRO, B12, ESR, CRP, CBC #### [address] WBC (Bld) [#/Vol] 10.5 10*3/uL Normal 4.1-10.5 [facility] Comment on above: Performed By: #### B MP, FE PRO, B12, ESR, CRP, CBC #### [address] Creatinine [Mass/volume] in Serum or PlasmaOrdered By: Nina Aleta on 02-08-2024 Creatinine [Mass/Vol] Creatinine [Mass/v olume] in Serum or Plasma High 0.70-1.30 [facility] Eosinophils Auto (Bld) [#/Vo l]Ordered By: Nina Aleta on 02-08-2024 Eosinophils (Bld) [#/Vol] Automated eosinophil count 0.0-0.45 [facility] Eosinophils/100 WBC Auto (Bl d)Ordered By: Nina Aleta on 02-08-2024 Eosinophils/100 WBC (Bld) Automated eosinophil % . [facility] Erythrocyte Sedimentation Ra мария 02-08-2024 ESR (Bld) [Velocity] 44 mm/h High 0-19 [facility] Comment on above: Result Comment: PERF ORMED BY: [place] [address] PATHOLOGIST RECEIVING MANAGER FARRAH PAUL M.D. Performed By: #### B MP, FE PRO, B12, ESR, CRP, CBC #### [address] Erythrocyte distribution wid th Auto (RBC) [Ratio]Ordered By: Nina Aleta on 02-08-2024 Erythrocyte distribution width (RBC) [Ratio] Erythrocyte distribution width [Ratio] by Automated count High 12.0-14.8 [facility] Erythrocyte sedimentation ra te by Photometric methodOrdered By: Nina Aleta on 02-08-2024 ESR Photometric method (Bld) [Velocity] Erythrocyte sedimentation rate by Photometric method High 0-19 [facility] FE PROon 02-08-2024 % Iron Saturation Not performed Normal 20-50 [facility] Comment on above: Performed By: #### B MP, FE PRO, B12, ESR, CRP, CBC #### [address] Ferritin [Mass/Vol] 422.9 ng/mL High 23.9-336.2 [facility] Comment on above: Performed By: #### B MP, FE PRO, B12, ESR, CRP, CBC #### [facility] [address] Iron [Mass/Vol] ug/dL Low 50-212 [facility] Comment on above: Performed By: #### B MP, FE PRO, B12, ESR, CRP, CBC #### [facility] [address] Total Iron Binding Capacity 175 ug/dL Low 255-450 [facility] Comment on above: Performed By: #### B MP, FE PRO, B12, ESR, CRP, CBC #### [facility] [address] Transferrin [Mass/Vol] 125 mg/dL Low 203-362 [facility] Comment on above: Performed By: #### B MP, FE PRO, B12, ESR, CRP, CBC #### [facility] [address] Ferritin [Mass/volume] in Se rum or PlasmaOrdered By: Nina River on 02-08-2024 Ferritin [Mass/Vol] Ferritin [Mass/volum e] in Serum or Plasma High 23.9-336.2 [facility] Glucose [Mass/volume] in Ser um or PlasmaOrdered By: Nina River on 02-08-2024 Glucose [Mass/Vol] Glucose [Mass/volume ] in Serum or Plasma High 70-100 [facility] Comment on above: ADA recommended refe rence rangeRandom Glucose Reference Range is dependent on time and content of last meal. Glucose of more than 200 mg/dL in a nonstressed, ambulatory subject supports the diagnosis of Diabetes Mellitus. Hematocrit Auto (Bld) [Volum e fraction]Ordered By: Nina River on 02-08-2024 Hematocrit (Bld) [Volume fraction] Hematocrit [Volume Fraction] of Blood by Automated count Low 38.8-50.0 [facility] Hemoglobin [Mass/volume] in BloodOrdered By: Nina River on 02-08-2024 Hemoglobin (Bld) [Mass/Vol] Hemoglobin [Mass/volume] in Blood Low 13.0-17.0 [facility] Iron [Mass/volume] in Serum or PlasmaOrdered By: Nina River on 02-08-2024 Iron [Mass/Vol] Iron [Mass/volume] i n Serum or Plasma Low 50-212 [facility] Leukocytes [#/volume] correc shreya for nucleated erythrocytes in Blood by Automated counOrdered By: Nina River on 02-08-2024 WBC corrected for nucl RBC Auto (Bld) [#/Vol] Leukocytes [#/volume] corrected for nucleated erythrocytes in Blood by Automated coun 4.1-10.5 [facility] Lymphocytes Auto (Bld) [#/Vo l]Ordered By: Nina River on 02-08-2024 Lymphocytes (Bld) [#/Vol] Lymphocytes [#/volume] in Blood by Automated count Low 1.00-4.8 [facility] Lymphocytes/100 WBC Auto (Bl d)Ordered By: Nina River on 02-08-2024 Lymphocytes/100 WBC (Bld) Lymphocytes/100 leukocytes in Blood by Automated count . [facility] MCH Auto (RBC) [Entitic mass ]Ordered By: Nina River on 02-08-2024 MCH (RBC) [Entitic mass] MCH [Entitic mass] by Automated count Low 27.5-35.2 [facility] MCHC Auto (RBC) [Mass/Vol]Or dered By: Nina River on 02-08-2024 MCHC (RBC) [Mass/Vol] MCHC [Mass/volume] by Automated count 32.5-35.6 [facility] MCV Auto (RBC) [Entitic vol] Ordered By: Nina River on 02-08-2024 MCV (RBC) [Entitic vol] MCV [Entitic volume] by Automated count Low 83.5-101 [facility] Monocytes Auto (Bld) [#/Vol] Ordered By: Nina Aleta on 02-08-2024 Monocytes (Bld) [#/Vol] Automated blood monocyte count 0.0-0.8 [facility] Monocytes/100 WBC Auto (Bld) Ordered By: Nina River on 02-08-2024 Monocytes/100 WBC (Bld) Automated monocyte % . [facility] Neutrophils Auto (Bld) [#/Vo l]Ordered By: Nina River on 02-08-2024 Neutrophils (Bld) [#/Vol] Neutrophils [#/volume] in Blood by Automated count High 1.8-7.7 [facility] Neutrophils/100 WBC Auto (Bl d)Ordered By: Ninastefan River on 02-08-2024 Neutrophils/100 WBC (Bld) Automated neutrophil % . [facility] No Panel InformationOrdered By: Nina River on 02-08-2024 Estimated GFR (CKD-EPI) 48.779 mL/Min [facility] Creatinine Clearance (Chem N/A [facility] Nucleated erythrocytes [Pres ence] in Blood by Automated countOrdered By: Nina River on 02-08-2024 Nucleated RBC Auto Ql (Bld) Nucleated erythrocytes [Presence] in Blood by Automated count 0-0.5 [facility] Platelet mean volume Auto (B ld) [Entitic vol]Ordered By: Nina River on 02-08-2024 Platelet mean volume (Bld) [Entitic vol] Platelet mean volume [Entitic volume] in Blood by Automated count 6.6-10.1 [facility] Platelets Auto (Bld) [#/Vol] Ordered By: Nina River on 02-08-2024 Platelets (Bld) [#/Vol] Platelets [#/volume] in Blood by Automated count 150-450 [facility] Potassium [Moles/volume] in Serum or PlasmaOrdered By: Nina River on 02-08-2024 Potassium [Moles/Vol] Potassium [Moles/v olume] in Serum or Plasma 3.5-5.1 [facility] RBC Auto (Bld) [#/Vol]Ordere d By: Ninastefan River on 02-08-2024 RBC (Bld) [#/Vol] Erythrocytes [#/volu me] in Blood by Automated count Low 3.90-5.60 [facility] Serum or plasma anion gap de terminationOrdered By: Nina River on 02-08-2024 Anion gap [Moles/Vol] Serum or plasma an ion gap determination 6.0-15.0 [facility] Serum or plasma iron binding capacity measurement (mass/volume)Ordered By: Nina River on 02-08-2024 Iron binding capacity [Mass/Vol] Iron binding capacity [Mass/volume] in Serum or Plasma Low 255-450 [facility] Serum or plasma iron saturat ion measurement (mass fraction)Ordered By: Nina River on 02-08-2024 Iron saturation [Mass fraction] Iron saturation [Mass Fraction] in Serum or Plasma [facility] Comment on above: Test not performed Sodium [Moles/volume] in Ser um or PlasmaOrdered By: Nina River on 02-08-2024 Sodium [Moles/Vol] Sodium [Moles/volume ] in Serum or Plasma 136-145 [facility] Transferrin [Mass/volume] in Serum or PlasmaOrdered By: Nina River on 02-08-2024 Transferrin [Mass/Vol] Transferrin [Mass/volume] in Serum or Plasma Low 203-362 [facility] Urea nitrogen [Mass/volume] in Serum or PlasmaOrdered By: Nina River on 02-08-2024 Urea nitrogen [Mass/Vol] Urea nitrogen [Mass/volume] in Serum or Plasma 7-25 [facility] Vitamin B12on 02-08-2024 Cobalamin (Vitamin B12) [Mass/Vol] 701 pg/mL Normal 180-914 [facility] Comment on above: Result Comment: PERF ORMED BY: [place] [address] PATHOLOGIST RECEIVING MANAGER FARRAH PAUL M.D. Performed By: #### B MP, FE PRO, B12, ESR, CRP, CBC #### [address] Vitamin B12 ser/plasOrdered By: Nina River on 02-08-2024 Cobalamin (Vitamin B12) [Mass/Vol] Vitamin B12 ser/plas 180-914 [facility] WBC Auto (Bld) [#/Vol]Ordere d By: Nina River on 02-08-2024 WBC (Bld) [#/Vol] Leukocytes [#/volume ] in Blood by Automated count 4.1-10.5 [facility] Reminderson 11-15-2023 Reminders Reminders From: Ama Arteaga To: EU - Recalls [place]; Sent: 11/15/2023 16:29:55 EDT Show up: 08/27/2024 16:29:00 EDT Subject: Cysto/UD Due Date/Time: 09/18/2024 16:29:00 EDT Reminder/Recall Patient is due in October 2024 for 1 year cysto/UD w [place] sounds Normal [facility] BONE MARROWon 10-11-2023 BONE MARROW SEE SEPARATE REPORT Normal [facility] Comment on above: Result Comment: REVI EWED BY SOLEDAD HUYNH M.D. Performed By: #### E XHR, 96465-3, MDSDF #### [facility] ([id number]) [address] [place] [address] 19373 #### 46040-0, PENNY #### [facility] ([id number]) [address] [facility], [address] [place] [address] CBC AND AUTO DIFFon 10-11-19 24 ABSOLUTE BASOPHIL 0.0 X10E9/L Normal 0.0-0.[address] [facility] Comment on above: Performed By: #### P INR, CBCA #### [facility] ([id number]) [address] [place] [address] 20089 ABSOLUTE NEUTROPHIL 8.0 X10E9/L High 1.5-6.6 [facility] Comment on above: Performed By: #### P INR, CBCA #### [facility] ([id number]) [address] [place] [address] 69265 Basophils/100 WBC (Bld) 0.3 % Normal [facility] Comment on above: Performed By: #### P INR, CBCA #### [facility] ([id number]) [address] [place] [address] 02423 Eosinophils (Bld) [#/Vol] 0.5 10*3/uL High 0.0-0.4 [facility] Comment on above: Performed By: #### P INR, CBCA #### [facility] ([id number]) [address] [place] [address] 25852 Eosinophils/100 WBC (Bld) 4.4 % Normal [facility] Comment on above: Performed By: #### P INR, CBCA #### [facility] ([id number]) [address] [place] [address] 85419 Erythrocyte distribution width (RBC) [Ratio] 16.8 % High 11.5-15.0 [facility] Comment on above: Performed By: #### P INR, CBCA #### [facility] ([id number]) [address] [place] [address] 33563 Hematocrit (Bld) [Volume fraction] 20.1 % Low 39-49 [facility] Comment on above: Performed By: #### P INR, CBCA #### [facility] ([id number]) [address] [place] [address] 37247 Hemoglobin (Bld) [Mass/Vol] 6.6 g/dL Critically low 13.0-17.0 [facility] Comment on above: Performed By: #### P INR, CBCA #### [facility] ([id number]) [address] [place] [address] 01091 Lymphocytes (Bld) [#/Vol] 1.4 10*3/uL Normal 1.0-3.5 [facility] Comment on above: Performed By: #### P INR, CBCA #### [facility] ([id number]) [address] [place] [address] 24403 Lymphocytes/100 WBC (Bld) 13.0 % Normal [facility] Comment on above: Performed By: #### P INR, CBCA #### [facility] ([id number]) [address] [place] [address] 67559 MCH (RBC) [Entitic mass] 24.7 pg Low 27-34 [facility] Comment on above: Performed By: #### P INR, CBCA #### [facility] ([id number]) [address] [place] [address] 87024 MCHC (RBC) [Mass/Vol] 32.6 g/dL Normal 32-36 [facility] Comment on above: Performed By: #### P INR, CBCA #### [facility] ([id number]) [address] [place] [address] 26641 MCV (RBC) [Entitic vol] 76 fL Low 80-100 [facility] Comment on above: Performed By: #### P INR, CBCA #### [facility] ([id number]) [address] [place] [address] 94081 Monocytes (Bld) [#/Vol] 0.9 10*3/uL Normal 0-0.9 [facility] Comment on above: Performed By: #### P INR, CBCA #### [facility] ([id number]) [address] [place] [address] 26828 Monocytes/100 WBC (Bld) 8.2 % Normal [facility] Comment on above: Performed By: #### P INR, CBCA #### [facility] ([id number]) [address] [place] [address] 85994 Neutrophils/100 WBC (Bld) 74.1 % Normal [facility] Comment on above: Performed By: #### P INR, CBCA #### [facility] ([id number]) [address] [place] [address] 07839 Platelet mean volume (Bld) [Entitic vol] 7.0 fL Normal 7-12 [facility] Comment on above: Performed By: #### P INR, CBCA #### [facility] ([id number]) [address] [place] [address] 68340 Platelets (Bld) [#/Vol] 371 10*3/uL Normal 150-450 [facility] Comment on above: Performed By: #### P INR, CBCA #### [facility] ([id number]) [address] [place] [address] 51676 RBC COUNT 2.66 X10E12/L Low 4.10-5.70 [facility] Comment on above: Performed By: #### P INR, CBCA #### [facility] ([id number]) [address] [place] [address] 34722 WBC (Bld) [#/Vol] 10.8 10*3/uL Normal 4.0-11.0 [facility] Comment on above: Performed By: #### P INR, CBCA #### [facility] ([id number]) [address] [place] [address] 72397 DNA and RNA Extract and Hold on 10-11-2023 DNA and RNA Extract and Hold SEE COMMENTS 10/14/2023 08:52 AM Normal [facility] Comment on above: Result Comment: NOTE Test [...] [facility] Hematopathology Laboratory's test catalog, please contact [facility] at [phone]. Method summary: DNA and RNA were extracted from the received specimen and stored at -80 C. This test was developed and its performance characteristics determined by [facility] in a manner consistent with CLIA requirements. This test has not been cleared or approved by the U.S. Food and Drug Administration. Test Performed by: [place] [address] Residential Sales Representative: Rosie Ruby Ph.D.; CLIA# [id number] Performed By: #### E X, 52370-3, MDSDF #### [facility] ([id number]) [address] [place] [address] 87465 #### 02814-4, PENNY #### [facility] ([id number]) [address], [address] [place] [address] Flow cytometry specialist re view Álvaro (Unsp spec) [Interp]on 10-11-2023 FLOW CYTOMETRY BM SEE SEPARATE REPORT, REVIEWED BY PATHOLOGIST [facility] Comment on above: Performed By: #### E XHR, 69916-9, MDSDF #### [facility] ([id number]) [address] [place] [address] 41024 #### 38383-8, PENNY #### [facility] ([id number]) [address], [address] [place] [address] IR BX AND ASP BONE MARROW SN [...] on the left iliac bone using an [employer] powered bone marrow biopsy system. The bone [...] biopsy performed under CT guidance. Finalized by Khadra Guerrero MD on 10/11/2023 9:49 AM Normal [facility] Karyotype Nom (BM)on 024 CHROMOSOME BONE MARROW SEE COMMENTS 10/19/2023 02:37 PM Normal [facility] Comment on above: Result Comment: NOTE Test Result Flag Unit RefValue -- Chromosomes, Hematologic, BM Result Summary Normal Interpretation See Note No clonal abnormality was apparent. Since this conventional chromosome study was successful, MDS, Diag FISH was cancelled per lab protocol (Isma Christie et al., AJCP, 146:86-94, 2016; [facility] MDS Algorithm: [email or web address]-mmfiles/Myelodysplastic_Syndrome_G uideline_to_Diagnosis_and_Follow-up.pdf). Result 46,XY[20] Reason for Referral [...] of the testing process was performed at [facility] Domosite site 785670. Released By Tanvi Loo M.D. Test Performed by: [place] [address] Residential Sales Representative: Rosie Ruby Ph.D.; CLIA# [id number] Performed By: #### E XHR, 92530-5, MDSDF #### [facility] ([id number]) [address] [place] [address] 86928 #### 74154-3, PENNY #### [facility] ([id number]) [address] [place] [address], [address] [place] [address] MYELODYSPLASTIC SYNDROME (MD Jack),DIAGNOSTIC FISH, VARIESon 10-11-2023 MYELODYSPLASTIC SYNDROME (MDS),DIAGNOSTIC FISH, VARIES SEE COMMENTS 10/22/2023 08:45 AM Normal [facility] Comment on above: Result Comment: NOTE Test Result Flag Unit RefValue -- MDS, Diagnostic FISH Interpretation TNP MDS, Diagnostic FISH was cancelled on 10/22/2023 at 08:41; Based on other test results additional testing not required. MDS FISH order was cancelled per laboratory protocol (Isma et al., Amer J Clin Pathol 146:86-94, 2016; [facility] MDS Algorithm: www.[employer] [email or web address] [email or web address]/it-mmfiles/Myelodysplastic_S yndrome_Guideline_ to_Diagnosis_and_Follow-up.pdf) with Probes -RPN1(G)/MECOM(R), -TP53(R)/D17Z1(G), -D8Z2(G)/MYC(R), -D51J841(R)/20QTER(G), -U8V814(G)/EGR1(R), -D7Z1(G)/J6Q718(R) Test Performed by: [facility] [address] Residential Sales Representative: Rosie Ruby Ph.D.; CLIA# [id number] Performed By: #### E XHR, 94364-0, MDSDF #### [facility] ([id number]) [address] [place] [address] 28510 #### 39907-2, BONMAR #### [facility] ([id number]) [address] [place] [address], [address] [place] [address] PROTIME AND INRon 10-11-2023 INR Coag (PPP) [Relative time] 1.3 {INR} High 0.8-1.1 [facility] Comment on above: Performed By: #### P INR, CBCA #### [facility] ([id number]) [address] [place] [address] 73671 PT Coag (PPP) [Time] 14.9 s High 9.8-13.2 [facility] Comment on above: Result Comment: NEW REFERENCE RANGE Performed By: #### P INR, CBCA #### [facility] ([id number]) [address] [facility], [place] [address] Surgical Pathologyon 024 Surgical Pathology Normal [facility] Comment on above: Result Comment: [facility] [address] [place], [place] [address] Bone Marrow Consultation Patient Name:GANGA STINSON:1960 (Age: 63)Gender:MTaken:10/11/2023eported:10/14/2023hysician(s):Nina River ([phone])Copy To:Khadar Guerrero M.D. Rec. #:[id number]: #[id number] Final Pathologic Diagnosis Bone marrow, aspiration and [...] acquisition are identified on maturing myeloid cells. Reader on the lymphoid population demonstrates a mixed population of phenotypically unremarkable T-cells, polyclonal B-cells, and natural killer cells, without a detectable monoclonal population. No monotypic plasma cell population is identified. Immunophenotyping antibodies tested: CD2, CD3, CD4, CD5, CD7, CD8, CD10, CD13, CD16, CD19, CD20 , CD23, CD33, CD34, CD38, CD43, CD45, CD56, CD117, CD123, CD138, [place], Lambda. Cytoplasmic [place]/CD38, Cytoplasmic Lambda/CD38, and intrinsic VS38 Immunophenotyping Comment: Immunophenotyping has been used in this diagnostic evaluation. This test was developed and its performance characteristics determined by the [facility]. It has not been [...] Out Soledad Huynh MD Interpretation performed at [facility], [address] [place] [address], License number: [id number]. Clinical History Leukocytosis. Gross Description 1. Received in B plus fixative labeled ALLOWAY, clot is a friable portion of hemorrhagic material, 2.2 x 1.0 x 0.4 cm in aggregate. The specimen is submitted entirely in a single cassette. (1, ns, C22-32936-5, m1) LADONNA 2. Received in B plus fixative labeled ALLOWAY, core is a pale osborne-pardo cylindrical segment of bone with adherent hemorrhagic material, 1.0 cm in length and 0.2 cm in diameter. The specimen is submitted entirely in a single cassette following a period of decalcification in Rapid-Delbert Immuno. (1, ns, Q68-83454-0, m1) LADONNA Comment: Per epic IR procedure [...] for Procedure/Surger yon 09-22-2023 Consent for Procedure/Surgery [id number]#1.00TIFF Normal [facility] Retail - Clinical Noteon Retail - Clinical Note [id number]#1.00TIFF Normal [facility] Martín 07-08-2023 L Specimen: [id number] Received: 07/12/23 Status: ROSIO Rajput Num: [id number] Spec Type: Surgical Subm Dr: Bubba Bahena,DPM, MS Tissues: A Debridement-Skin/Other Than Skin (LEFT FIBULA) B Debridement-Skin/Other Than Skin (LEFT TALUS) Procedures: HE/2, Gross/Micro L3/2 Age/ Patient Sex Location Account Attending Physician Ganga Stinson 63/M LABELL [id number] Bubba Bahena DPM, MS SPEC NUM: [id number] RECD: 07/12/23 STATUS: ROSIO RAJPUT NUM: [id number] NAYLA: 07/08/[address]: Bubba Bahena DPM, MS ENTERED: 07/12/[address] [facility] [address]: Titi,Phyllis SPEC TYPE: Surgical DEPT: RAFI SMITH ORDERED: [...] pressure ulcer of left heel?path pending Specimen: [id number] Received: 07/12/23 Status: ROSIO Hermosillochristofer Num: [id number] Spec Type: Surgical Subm Dr: Bubba Bahena DPM, MS Tissues: A Debridement-Skin/Other Than Skin (LEFT FIBULA) B Debridement-Skin/Other Than Skin (LEFT TALUS) Procedures: OMID Gross/Micro L3/2 Patient: Ganga Stinson [id number] (Continued) Specimen: [id number] Received: 07/12/23 (Continued) Signed (signature on file) Anh Smith MD 07/14/23 1022 Specimen: [id number] Received: 07/12/23 Status: ROSIO Rajput Num: [id number] Spec Type: Surgical Subm Dr: Bubba Bahena,CRISTIANA, MS Tissues: A Debridement-Skin/Other Than Skin (LEFT FIBULA) B Debridement-Skin/Other Than Skin (LEFT TALUS) Procedures: ISMABrianne Gross/Micro L3/2 Patient: Ganga Stinson [id number] (Continued) Specimen: [id number] Received: 07/12/23 (Continued) CPT Codes 63992 x 2 89607 x 2 Specimen: [id number] Received: 07/12/23 Status: ROSIO Rajput Num: [id number] Spec Type: Surgical Subm Dr: Bubba Bahena,CRISTIANA, MS Tissues: A Debridement-Skin/Other Than Skin (LEFT FIBULA) B Debridement-Skin/Other Than Skin (LEFT TALUS) Procedures: HE/2, Gross/Micro L3/2 Patient: Ganga Stinson [id number] (Continued) Signed (signature on file) Shoaib-Mihai Smith MD 07/14/23 1022 Normal [facility] Consent for Procedure/Surger yon 06-14-2023 Consent for Procedure/Surgery [id number]#1.00TIFF Normal [facility] Aerobic Cultureon 06-04-2023 Aerobic Culture Comment left fibular bone biopsy ORGANISM: Strep dysgalactiae (O:STRDYS) Quantity of Growth Heavy Growth Comment left fibular bone biopsy ORGANISM: Prevotella disiens (O:PREDIS) Comments Sent to [facility] for Sensitivity Testing Quantity of Growth Light Growth Please see scanned report located in the EMR under the Diagnostics tab -> Scanned Lab Reports -> Laboratory. Comment left fibular bone biopsy Gram Stain Result No Bacteria Seen Rare White Blood Cells PERFORMED BY: [address] [place] [address] PATHOLOGIST RECEIVING MANAGER FARRAH PAUL M.D. Normal [facility] Comment on above: Performed By: #### A ERC #### [address] Capillary blood glucose linda urement by glucometer (mass/volume)Ordered By: Jonathan Moffett on 06-04-2023 Glucose [Mass/Vol] 134 mg/dL Normal [facility] Comment on above: Random Glucose Refer ence Range is dependent on time and content of last meal. Glucose of more than 200 mg/dL in a nonstressed, ambulatory subject supports the diagnosis of Diabetes Mellitus. Result Comment: [facility] Glucose Reference Range is dependent on time and content of last meal. Glucose of more than 200 mg/dL in a nonstressed, ambulatory subject supports the diagnosis of Diabetes Mellitus. PERFORMED BY: [facility] [place] [address] PATHOLOGIST RECEIVING MANAGER FARRAH PAUL M.D. Performed By: #### G BHARATI #### Point of Care testing , Gram stain for investigation of transfusion reactionOrdered By: Jonathan Moffett on 06-04-2023 Microscopic observation Gram stain Nom (Unsp spec) Prevotella disiens [facility] Reminderson 04-30-2023 Reminders - From: Ama Arteaga To: EU - Recalls [place]; Cc: Ama Arteaga; Sent: 01/15/2023 08:12:10 EDT Show up: 04/29/2023 08:12:00 EST Subject: Cysto/UD Due Date/Time: 06/07/2023 08:11:00 EDT Reminder/Recall Patient needs 6 month cysto/UD in June 2023 Spoke to teddy rizzo for 07/12/23 at [facility].LG Patient will be due in Dec 2023.LG Normal [facility] Ambulatory Visit Summaryon 1 Ambulatory Visit Summary [...] you for choosing us for your care. [facility] Operative Reporton Operative Report [id number]#1.00TIFF [facility] Pre-Certification Formon Pre-Certification Form [id number]#1.00TIFF [facility] Insurance Correspondenceon 0 12-25-2022 Insurance Correspondence [id number]#1.00CD:127 [facility] Consent for Procedure/Surger yon 12-22-2022 Consent for Procedure/Surgery [id number]#1.00CD:127 [facility] Cult,Urineon 09-26-2022 Cult,Urine Specimen Description .CLEAN CATCH URINE Culture NO SIGNIFICANT GROWTH Report Status FINAL 09/26/2022 Normal [facility] Comment on above: Performed By: #### C MPX, CDP #### [facility] [address] [place] [address] Residential Sales Representative: Khadar Tang MD US RENAL COMPLETEon 09-20-19 [...] Alexander Mcclain DO 09/19/22 Final result Normal [facility] Unremarkable ultraso und of the kidneys and urinary bladder. [facility] EXAMINATION: RETROPERITONEAL ULTRASOUND [...] the bladder. No significant post void residual. [facility] Alexander Mcclain DO [...] ultrasound of the kidneys and urinary bladder. [facility] US RENAL COMPLETEOrdered By: Alexander Mcclain on 09-19-2022 [facility] Work Phone: Basic Metabolic Profon 09-18 Anion gap [Moles/Vol] 10 mmol/L Normal 9-17 [facility] Comment on above: Performed By: #### B MP #### [facility] [address] [place], [place] [address] Residential Sales Representative: Khadar Tang MD BUN/CRE Ratio 26 High 9-20 [facility] Comment on above: Performed By: #### B MP #### [facility] [address] [place], [place] [address] Residential Sales Representative: Khadar Tang MD Calcium [Mass/Vol] 9.3 mg/dL Normal 8.6-10.4 [facility] Comment on above: Performed By: #### B MP #### [facility] [address] [place], [place] [address] Residential Sales Representative: Khadar Tang MD Chloride [Moles/Vol] 105 mmol/L Normal 98-107 [facility] Comment on above: Performed By: #### B MP #### [facility] [address] [place], [place] [address] Residential Sales Representative: Khadar Tang MD CO2 [Moles/Vol] 22 mmol/L Normal 20-31 [facility] Comment on above: Performed By: #### B MP #### [facility] [address] [place], [place] [address] Residential Sales Representative: Khadar Tang MD Creatinine [Mass/Vol] 1.25 mg/dL High 0.70-1.20 [facility] Comment on above: Performed By: #### B MP #### [facility] [address] [place], [place] [id number] Residential Sales Representative: Khadar Tang MD GFR/1.73 sq M.predicted among non-blacks MDRD (S/P/Bld) [Vol rate/Area] mL/min/{1.73_m2} Normal >60 [facility] Comment on above: Result Comment: These [...] By: #### B MP #### [facility] [address] [place], [place] [address]83 Residential Sales Representative: Khadar Tang MD Glucose [Mass/Vol] 186 mg/dL High 70-99 [facility] Comment on above: Performed By: #### B MP #### [facility] [address] [place] [address] Residential Sales Representative: Khadar Tang MD Potassium [Moles/Vol] 4.1 mmol/L Normal 3.7-5.3 [facility] Comment on above: Performed By: #### B MP #### [facility] [address] [place] [address] Residential Sales Representative: Khadar Tang MD Sodium [Moles/Vol] 137 mmol/L Normal 135-144 [facility] Comment on above: Performed By: #### B MP #### [facility] [address] [place] [place] [address] Residential Sales Representative: Khadar Tang MD Urea nitrogen [Mass/Vol] 32 mg/dL High 8-23 [facility] Comment on above: Performed By: #### B MP #### [facility] [address] [place], [place] 399[address]83 Residential Sales Representative: Khadar Tang MD RENAL COMPLETEon 09-19-19 Radiology Study observation (narrative) [facility] Hemoglobin A1Con 2022 Glucose [Mass/Vol] 171 mg/dL Normal [facility] Comment on above: Result Comment: The ADA and AACC recommend providing the estimated average glucose result to permit better patient understanding of their HBA1c result. Performed By: #### G LYHGB #### [facility] [employer] [address], [place] [address] Residential Sales Representative: Jeff Casanova MD HbA1c (Bld) [Mass fraction] 7.6 % High 4.0-6.0 [facility] Comment on above: Performed By: #### G LYHGB #### [facility] [address], [place] [address] Residential Sales Representative: Jeff Casanova MD OPERATIVE REPORTon 3 OPERATIVE REPORT [address] [id number] OPERATIVE REPORT PATIENT NAME: GANGA STINSON : 1960 MED REC NO: [id number] ROOM: ACCOUNT NO: [id number] ADMIT DATE: 2022 PROVIDER: Angeles Nagy DATE OF PROCEDURE: 2022 SURGEON: Dr. Angeles Nagy. MERCHANDISE PRESENTATION MANAGER: None. PREOPERATIVE DIAGNOSES: 1. Neurogenic bladder. 2. Urethral stricture. POSTOPERATIVE DIAGNOSES: 1. Neurogenic bladder. 2. Urethral stricture. PROCEDURE PERFORMED: Direct visual internal urethrotomy. ANESTHESIA: General. COMPLICATIONS: None. ESTIMATED BLOOD LOSS: Minimal. SPECIMENS: None. PROSTHESIS: An 18-Stateless Rowe catheter. DISPOSITION: Stable. FINDINGS: Bulbous urethral stricture. 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 DESCRIPTION OF PROCEDURE: The patient was taken back to the operating room after informed consent including all risks, benefits, and alternatives were obtained. The patient was transferred from the [facility] onto the operating room table, where he was induced under general anesthesia and given IV Ancef for preoperative antibiotic prophylaxis. To begin the case, he was prepped and draped in the normal sterile fashion and placed in dorsal lithotomy. He had a 21-Stateless sheath with a 30-degree lens passed through [...] then removed the scope and inserted an 18-Stateless Rowe catheter with ease. He was then awoken from general anesthesia, transferred to the [facility], and taken to the PACU in satisfactory condition by Nursing and Anesthesia Teams. PLAN: The patient will be discharged home per PACU criterion and follow up with me in one week for Rowe catheter removal. ANGELES LILO A[place]RI[place]/Jerry_MED_I Doc#: [id number] CC: Normal [facility] Basic Metabolic Panelon 04-0 Anion gap [Moles/Vol] 10 mmol/L 9 - 17 mmol/L [facility] Calcium [Mass/Vol] 8.8 mg/dL 8.6 - 10. 4 mg/dL [facility] Chloride [Moles/Vol] 106 mmol/L 98 - 10 7 mmol/L [employer] [facility] CO2 [Moles/Vol] 24 mmol/L 20 - 31 mmol/L [facility] Creatinine [Mass/Vol] 1.3 mg/dL High 0.70 - 1.20 mg/dL [facility] GFR/1.73 sq M.predicted MDRD (S/P/Bld) [Vol rate/Area] - PINF [facility] Comment on above: These results are not [...] mg/dL High 70 - 99 mg/dL [facility] [employer] Interpretation and review of laboratory results Abnormal [facility] Potassium [Moles/Vol] 4.0 mmol/L 3.7 - 5.3 mmol/L [facility] Sodium [Moles/Vol] 140 mmol/L 135 - 144 mmol/L [facility] Urea nitrogen [Mass/Vol] 29 mg/dL High 8 - 23 mg/dL [facility] Urea nitrogen/Creatinine (Bld) [Mass ratio] 22 High 9 - 20 [facility] Basic Metabolic Profon 07-02 Anion gap [Moles/Vol] 10 mmol/L Normal 9-17 [facility] Comment on above: Performed By: #### C MPX, CDP #### [facility] [address] [place] [address] Residential Sales Representative: Khadar Tang MD BUN/CRE Ratio 22 High 9-20 [facility] Comment on above: Performed By: #### C MPX, CDP #### [facility] [address] [place] [address] Residential Sales Representative: Khadar Tang MD Calcium [Mass/Vol] 8.8 mg/dL Normal 8.6-10.4 [facility] Comment on above: Performed By: #### C MPX, CDP #### [facility] [address] [place], [place] [address]83 Residential Sales Representative: Khadar Tang MD Chloride [Moles/Vol] 106 mmol/L Normal 98-107 [facility] Comment on above: Performed By: #### C MPX, CDP #### [facility] [address] [place] [address] Residential Sales Representative: Khadar Tang MD CO2 [Moles/Vol] 24 mmol/L Normal 20-31 [facility] Comment on above: Performed By: #### C MPX, CDP #### [facility] [address] [place] [address] Residential Sales Representative: Khadar Tang MD Creatinine [Mass/Vol] 1.30 mg/dL High 0.70-1.20 [facility] Comment on above: Performed By: #### C MPX, CDP #### [facility] [address] [place] [address] Residential Sales Representative: Khadar Tang MD GFR/1.73 sq M.predicted among non-blacks MDRD (S/P/Bld) [Vol rate/Area] mL/min/{1.73_m2} Normal >60 [facility] Comment on above: Result Comment: These [...] #### C MPX, CDP #### [facility] [address] [place] [address] Residential Sales Representative: Khadar Tang MD Glucose [Mass/Vol] 250 mg/dL High 70-99 [facility] Comment on above: Performed By: #### C MPX, CDP #### [facility] [address] [place] [place] [address] Residential Sales Representative: Khadar Tang MD Potassium [Moles/Vol] 4.0 mmol/L Normal 3.7-5.3 [facility] Comment on above: Performed By: #### C MPX, CDP #### [facility] [address] [place] [place] [address] Residential Sales Representative: Khadar Tang MD Sodium [Moles/Vol] 140 mmol/L Normal 135-144 [facility] Comment on above: Performed By: #### C MPX, CDP #### [facility] [address] [place] [place] [address] Residential Sales Representative: Khadar Tang MD Urea nitrogen [Mass/Vol] 29 mg/dL High 8-23 [facility] Comment on above: Performed By: #### C MPX, CDP #### [facility] [address] [place], [place] [id number] Residential Sales Representative: Khadar Tang MD CBC with Auto Differentialon 07-02-2022 Absolute Eos # 0.80 High [facility] Absolute Immature Granulocyte 0.06 [facility] Absolute Lymph # 1.38 [facility] Absolute [place] # 0.81 [facility] Basophils Absolute [facility] Basophils/100 WBC (Bld) 0 % 0 - 2 % [facility] Eosinophils/100 WBC (Bld) 7 % High 1 - 4 % [facility] Hematocrit (Bld) [Volume fraction] 26.8 % Low 40.7 - 50.3 % [facility] Hemoglobin (Bld) [Mass/Vol] 7.9 g/dL Low 13.0 - 17.0 g/dL [facility] Immature granulocytes/100 WBC (Bld) 1 % High 0 [facility] Interpretation and review of laboratory results Abnormal [facility] Lymphocytes/100 WBC (Bld) 13 % Low 24 - 43 % [facility] MCH (RBC) [Entitic mass] 23.3 pg Low 25.2 - 33.5 pg [facility] MCHC (RBC) [Mass/Vol] 29.5 g/dL 28.4 - 34.8 g/dL [facility] MCV (RBC) [Entitic vol] 79.1 fL Low 82.6 - 102.9 fL [facility] Monocytes/100 WBC (Bld) 8 % 3 - 12 % [facility] NRBC Automated 0.0 0.0 per 100 WBC [facility] Platelet distribution width (Bld) [Ratio] 16.1 % High 11.8 - 14.4 % [facility] Platelet mean volume (Bld) [Entitic vol] 9.1 fL 8.1 - 13.5 fL [facility] Platelets (Bld) [#/Vol] 241 10*3/uL [facility] RBC (Bld) [#/Vol] 3.39 10*6/uL Low 4.21 - 5.77 m/uL [facility] Segmented neutrophils/100 WBC (Bld) 71 % High 36 - 65 % [facility] Segs Absolute 7.79 [facility] WBC (Bld) [#/Vol] 10.9 10*3/uL [facility] CBC with Diffon 07-02-2022 Abs. Basophil <0.03 Normal 0.00-0.20 [facility] Comment on above: Performed By: #### C MPX, CDP #### [facility] [address] [place] [address] [place] [address] Residential Sales Representative: Khadar Tang MD Abs.Imm.Granulocyte 0.06 k/uL Normal 0.00-0.30 [facility] Comment on above: Performed By: #### C MPX, CDP #### [facility] [address] [place] [address] [place]. [place], [place] [id number] Residential Sales Representative: Khadar Tang MD Abs.Neutrophil (Seg) 7.79 k/uL Normal 1.50-8.10 [facility] Comment on above: Performed By: #### C MPX, CDP #### [address] [place], [place] [address] Residential Sales Representative: Khadar Tang MD Basophils/100 WBC (Bld) 0 % Normal 0-2 [facility] Comment on above: Performed By: #### C MPX, CDP #### [facility] [address] [place], [place] [address] Residential Sales Representative: Khadar Tang MD Eosinophils (Bld) [#/Vol] 0.80 10*3/uL High 0.00-0.44 [facility] Comment on above: Performed By: #### C MPX, CDP #### [facility] [address] [place] [address] [place] [address] Residential Sales Representative: Khadar Tang MD Eosinophils/100 WBC (Bld) 7 % High 1-4 [facility] Comment on above: Performed By: #### C MPX, CDP #### [facility] [address] [place], [place] [address] Residential Sales Representative: Khadar Tang MD Erythrocyte distribution width (RBC) [Ratio] 16.1 % High 11.8-14.4 [facility] Comment on above: Performed By: #### C MPX, CDP #### [facility] [address] [place], [place] [id number] Residential Sales Representative: Khadar Tang MD Hematocrit (Bld) [Volume fraction] 26.8 % Low 40.7-50.3 [facility] Comment on above: Performed By: #### C MPX, CDP #### [address] [place], [place] [address] Residential Sales Representative: Khadar Tang MD Hemoglobin (Bld) [Mass/Vol] 7.9 g/dL Low 13.0-17.0 [facility] Comment on above: Performed By: #### C MPX, CDP #### [address] [place] [address] [place] [address] Residential Sales Representative: Khadar Tang MD Immature granulocytes/100 WBC (Bld) 1 % High 0 [facility] Comment on above: Performed By: #### C MPX, CDP #### [facility] [address] [place] [address] [place] [place], [place] [id number] Residential Sales Representative: Khadar Tang MD Lymphocytes (Bld) [#/Vol] 1.38 10*3/uL Normal 1.10-3.70 [facility] Comment on above: Performed By: #### C MPX, CDP #### [address] [place] [address] [place] [address] Residential Sales Representative: Khadar Tang MD Lymphocytes/100 WBC (Bld) 13 % Low 24-43 [facility] Comment on above: Performed By: #### C MPX, CDP #### [facility] [address] [place] [address] [place] [address] Residential Sales Representative: Khadar Tang MD MCH (RBC) [Entitic mass] 23.3 pg Low 25.2-33.5 [facility] Comment on above: Performed By: #### C MPX, CDP #### [facility] [address] [place], [facility] [address] Residential Sales Representative: Khadar Tang MD MCHC (RBC) [Mass/Vol] 29.5 g/dL Normal 28.4-34.8 [facility] Comment on above: Performed By: #### C MPX, CDP #### [address] [place] [address] [place] [address] Residential Sales Representative: Khadar Tang MD MCV (RBC) [Entitic vol] 79.1 fL Low 82.6-102.9 [facility] Comment on above: Performed By: #### C MPX, CDP #### [address] [place] [address] [place] [address] Residential Sales Representative: Khadar Tang MD Monocytes (Bld) [#/Vol] 0.81 10*3/uL Normal 0.10-1.20 [facility] Comment on above: Performed By: #### C MPX, CDP #### [facility] [address] [place] [address] [place] [address] Residential Sales Representative: Khadar Tang MD Monocytes/100 WBC (Bld) 8 % Normal 3-12 [facility] Comment on above: Performed By: #### C MPX, CDP #### [facility] [address] [place] [address] Residential Sales Representative: Khadar Tang MD Neutrophil (Seg) 71 % High 36-65 [facility] Comment on above: Performed By: #### C MPX, CDP #### [facility] [address] [place], [place] [address] Residential Sales Representative: Khadar Tang MD NRBC Automated 0.0 per 100 WBC Normal 0.0 [facility] Comment on above: Performed By: #### C MPX, CDP #### [facility] [address] [place], [place] [address]83 Residential Sales Representative: Khadar Tang MD Platelet mean volume (Bld) [Entitic vol] 9.1 fL Normal 8.1-13.5 [facility] Comment on above: Performed By: #### C MPX, CDP #### [facility] [address] [place], [place] [address] Residential Sales Representative: Khadar Tang MD Platelets (Bld) [#/Vol] 241 10*3/uL Normal 138-453 [facility] Comment on above: Performed By: #### C MPX, CDP #### [address] [place], [place] [id number] Residential Sales Representative: Khadar Tang MD RBC (Bld) [#/Vol] 3.39 10*6/uL Low 4.21-5.77 [facility] Comment on above: Performed By: #### C MPX, CDP #### [address] [place], [place] [address]2583 Residential Sales Representative: Khadar Tang MD WBC (Bld) [#/Vol] 10.9 10*3/uL Normal 3.5-11.3 [facility] Comment on above: Performed By: #### C MPX, CDP #### [facility] [address] [place], [place] [address] Residential Sales Representative: Khadar Tang MD Cult,Woundon 06-27-2022 Cult,Wound Specimen Description .WOUND Special Requests LEG Direct Exam NO NEUTROPHILS SEEN NO ORGANISMS SEEN Culture NO GROWTH Report Status FINAL 06/27/2022 Normal [facility] Comment on above: Performed By: #### C MPX, CDP #### [facility] [address] [place] [address] Residential Sales Representative: Khadar Tang MD CBC auto differentialon 05-29 Absolute Eos # 0.63 High [facility] Absolute Immature Granulocyte 0.05 [facility] Absolute Lymph # 1.33 [facility] Absolute [place] # 0.82 [facility] Basophils Absolute [facility] Basophils/100 WBC (Bld) 0 % 0 - 2 % [facility] Eosinophils/100 WBC (Bld) 7 % High 1 - 4 % [facility] Hematocrit (Bld) [Volume fraction] 24.4 % Low 40.7 - 50.3 % [facility] Hemoglobin (Bld) [Mass/Vol] 7.6 g/dL Low 13.0 - 17.0 g/dL [facility] Immature granulocytes/100 WBC (Bld) 1 % High 0 [facility] Interpretation and review of laboratory results Abnormal [facility] Lymphocytes/100 WBC (Bld) 14 % Low 24 - 43 % [facility] MCH (RBC) [Entitic mass] 23.8 pg Low 25.2 - 33.5 pg [facility] MCHC (RBC) [Mass/Vol] 31.1 g/dL 28.4 - 34.8 g/dL [facility] MCV (RBC) [Entitic vol] 76.3 fL Low 82.6 - 102.9 fL [facility] Monocytes/100 WBC (Bld) 9 % 3 - 12 % [facility] NRBC Automated 0.0 0.0 per 100 WBC [facility] Platelet distribution width (Bld) [Ratio] 16.0 % High 11.8 - 14.4 % [facility] Platelet mean volume (Bld) [Entitic vol] 8.8 fL 8.1 - 13.5 fL [facility] Platelets (Bld) [#/Vol] 205 10*3/uL [facility] RBC (Bld) [#/Vol] 3.20 10*6/uL Low 4.21 - 5.77 m/uL [facility] Segmented neutrophils/100 WBC (Bld) 69 % High 36 - 65 % [facility] Segs Absolute 6.49 [facility] WBC (Bld) [#/Vol] 9.3 10*3/uL [facility] CBC with Diffon 06-26-2022 Abs. Basophil <0.03 Normal 0.00-0.20 [facility] Comment on above: Performed By: #### C MPX, CDP #### [facility] [address] [place], [place] [id number] Residential Sales Representative: Khadar Tang MD Abs.Imm.Granulocyte 0.05 k/uL Normal 0.00-0.30 [facility] Comment on above: Performed By: #### C MPX, CDP #### [address] [place], [place] [address]337783 Residential Sales Representative: Khadar Tang MD Abs.Neutrophil (Seg) 6.49 k/uL Normal 1.50-8.10 [facility] Comment on above: Performed By: #### C MPX, CDP #### [address] [place] [address] [place] [address] Residential Sales Representative: Khadar Tang MD Basophils/100 WBC (Bld) 0 % Normal 0-2 [facility] Comment on above: Performed By: #### C MPX, CDP #### [facility] [address] [place] [address] [place] [address] Residential Sales Representative: Khadar Tang MD Eosinophils (Bld) [#/Vol] 0.63 10*3/uL High 0.00-0.44 [facility] Comment on above: Performed By: #### C MPX, CDP #### [facility] [address] [place] [address] [place] [address] Residential Sales Representative: Khadar Tang MD Eosinophils/100 WBC (Bld) 7 % High 1-4 [facility] Comment on above: Performed By: #### C MPX, CDP #### [facility] [address] [place], [place] [address] Residential Sales Representative: Khadar Tang MD Erythrocyte distribution width (RBC) [Ratio] 16.0 % High 11.8-14.4 [facility] Comment on above: Performed By: #### C MPX, CDP #### [facility] [address] [place] [address] Dr. [place], [facility] [address] Residential Sales Representative: Khadar Tang MD Hematocrit (Bld) [Volume fraction] 24.4 % Low 40.7-50.3 [facility] Comment on above: Performed By: #### C MPX, CDP #### [address] [place], [facility] [address] [address] Residential Sales Representative: Khadar Tang MD Hemoglobin (Bld) [Mass/Vol] 7.6 g/dL Low 13.0-17.0 [facility] Comment on above: Performed By: #### C MPX, CDP #### [address] [place], [place] [address]2583 Residential Sales Representative: Khadar Tang MD Immature granulocytes/100 WBC (Bld) 1 % High 0 [facility] Comment on above: Performed By: #### C MPX, CDP #### [address] [place], [facility] [address] [address] [address] Residential Sales Representative: Khadar Tang MD Lymphocytes (Bld) [#/Vol] 1.33 10*3/uL Normal 1.10-3.70 [facility] Comment on above: Performed By: #### C MPX, CDP #### [address] [place] [address] Residential Sales Representative: Khadar Tang MD Lymphocytes/100 WBC (Bld) 14 % Low 24-43 [facility] Comment on above: Performed By: #### C MPX, CDP #### [address] [place], [place] [address]907683 Residential Sales Representative: Khadar Tang MD MCH (RBC) [Entitic mass] 23.8 pg Low 25.2-33.5 [facility] Comment on above: Performed By: #### C MPX, CDP #### [facility] [address] [place] [address] [place] [place], [place] 168[address]83 Residential Sales Representative: Khadar Tang MD MCHC (RBC) [Mass/Vol] 31.1 g/dL Normal 28.4-34.8 [facility] Comment on above: Performed By: #### C MPX, CDP #### [address] [place], [place] [address] Residential Sales Representative: Khadar Tang MD MCV (RBC) [Entitic vol] 76.3 fL Low 82.6-102.9 [facility] Comment on above: Performed By: #### C MPX, CDP #### [address] [place], [place] [address]397383 Residential Sales Representative: Khadar Tang MD Monocytes (Bld) [#/Vol] 0.82 10*3/uL Normal 0.10-1.20 [facility] Comment on above: Performed By: #### C MPX, CDP #### [address] [place], [place] 2251283 Residential Sales Representative: Khadar Tang MD Monocytes/100 WBC (Bld) 9 % Normal 3-12 [facility] Comment on above: Performed By: #### C MPX, CDP #### [address] [place], [place] 329668[address] Residential Sales Representative: Khadar Tang MD Neutrophil (Seg) 69 % High 36-65 [facility] Comment on above: Performed By: #### C MPX, CDP #### [facility] [address] [place], [place] 7405383 Residential Sales Representative: Khadar Tang MD NRBC Automated 0.0 per 100 WBC Normal 0.0 [facility] Comment on above: Performed By: #### C MPX, CDP #### [facility] [address] [place] [address] Residential Sales Representative: Khadar Tang MD Platelet mean volume (Bld) [Entitic vol] 8.8 fL Normal 8.1-13.5 [facility] Comment on above: Performed By: #### C MPX, CDP #### [facility] [address] [place] [address] Residential Sales Representative: Khadar Tang MD Platelets (Bld) [#/Vol] 205 10*3/uL Normal 138-453 [facility] Comment on above: Performed By: #### C MPX, CDP #### [facility] [address] [place] [address] [place] [address] Residential Sales Representative: Khadar Tang MD RBC (Bld) [#/Vol] 3.20 10*6/uL Low 4.21-5.77 [facility] Comment on above: Performed By: #### C MPX, CDP #### [facility] [address] [place] [address] [place] [place], [place] [id number] Residential Sales Representative: Khadar Tang MD WBC (Bld) [#/Vol] 9.3 10*3/uL Normal 3.5-11.3 [facility] Comment on above: Performed By: #### C MPX, CDP #### [facility] [address] [place] [address] [place] [address] Residential Sales Representative: Khadar Tang MD EKG Rhythm Stripon 3 rd [facility] Glucose, Whole Bloodon 06-26 Glucose [Mass/Vol] 95 mg/dL 74 - 100 mg/dL [facility] [facility] No Panel Informationon 06-26 No dictation [facility] Work Phone: [facility] Work Phone: Surgical Pathologyon [...] CONSULTATION Patient Name: GANGA STINSON [facility] Rec: [id number] Path Number: [id number] [facility] [employer] ANATOMIC PATHOLOGY [address] [place] [address]. [place], [place] [address] Normal [facility] Comment on above: Performed By: #### C MPX, CDP #### [facility] [address] [place], [place] [address] Residential Sales Representative: Khadar Tang MD Blood occult stool #1on 05-29 Date, Stool #1 3 [facility] Comment on above: 30 23 Hemoglobin.gastrointe stinal spec 1 Ql (Stl) Negative NEGATIVE [facility] Time, Stool #1 [address] [facility] CBC auto differentialon 05-29 Absolute Eos # 0.63 High [facility] Absolute Immature Granulocyte 0.07 [facility] Absolute Lymph # 1.63 [facility] Absolute [place] # 0.76 [facility] Basophils Absolute [facility] Basophils/100 WBC (Bld) 0 % 0 - 2 % [facility] Eosinophils/100 WBC (Bld) 7 % High 1 - 4 % [facility] Hematocrit (Bld) [Volume fraction] 24.6 % Low 40.7 - 50.3 % [facility] Hemoglobin (Bld) [Mass/Vol] 7.6 g/dL Low 13.0 - 17.0 g/dL [facility] Immature granulocytes/100 WBC (Bld) 1 % High 0 [facility] Interpretation and review of laboratory results Abnormal [facility] Lymphocytes/100 WBC (Bld) 19 % Low 24 - 43 % [facility] MCH (RBC) [Entitic mass] 23.7 pg Low 25.2 - 33.5 pg [facility] MCHC (RBC) [Mass/Vol] 30.9 g/dL 28.4 - 34.8 g/dL [facility] MCV (RBC) [Entitic vol] 76.6 fL Low 82.6 - 102.9 fL [facility] Monocytes/100 WBC (Bld) 9 % 3 - 12 % [facility] NRBC Automated 0.0 0.0 per 100 WBC [facility] Platelet distribution width (Bld) [Ratio] 15.9 % High 11.8 - 14.4 % [facility] Platelet mean volume (Bld) [Entitic vol] 8.9 fL 8.1 - 13.5 fL [facility] Platelets (Bld) [#/Vol] 223 10*3/uL [facility] RBC (Bld) [#/Vol] 3.21 10*6/uL Low 4.21 - 5.77 m/uL [facility] Segmented neutrophils/100 WBC (Bld) 64 % 36 - 65 % [facility] Segs Absolute 5.60 [facility] WBC (Bld) [#/Vol] 8.7 10*3/uL [facility] CBC with Diffon 06-25-2022 Abs. Basophil <0.03 Normal 0.00-0.20 [facility] Comment on above: Performed By: #### T BRENDA #### [facility] [address] [place] [address] Residential Sales Representative: Khadar Tang MD Abs.Imm.Granulocyte 0.07 k/uL Normal 0.00-0.30 [facility] Comment on above: Performed By: #### T ROPI #### [address] [place], [place] [address] Residential Sales Representative: Khadar Tang MD Abs.Neutrophil (Seg) 5.60 k/uL Normal 1.50-8.10 [facility] Comment on above: Performed By: #### T ROPI #### [address] [place], [place] [address] Residential Sales Representative: Khadar Tang MD Basophils/100 WBC (Bld) 0 % Normal 0-2 [facility] Comment on above: Performed By: #### T ROPI #### [address] [place], [place] [address] Residential Sales Representative: Khadar Tang MD Eosinophils (Bld) [#/Vol] 0.63 10*3/uL High 0.00-0.44 [facility] Comment on above: Performed By: #### T ROPI #### [address] [place], [place] [address] Residential Sales Representative: Khadar Tang MD Eosinophils/100 WBC (Bld) 7 % High 1-4 [facility] Comment on above: Performed By: #### T ROPI #### [address] [place], [place] [address] Residential Sales Representative: Khadar Tang MD Erythrocyte distribution width (RBC) [Ratio] 15.9 % High 11.8-14.4 [facility] Comment on above: Performed By: #### T ROPI #### [address] [place], [facility] [address] Residential Sales Representative: Khadar Tang MD Hematocrit (Bld) [Volume fraction] 24.6 % Low 40.7-50.3 [facility] Comment on above: Performed By: #### T ROPI #### [address] [place], [place] [address] Residential Sales Representative: Khadar Tang MD Hemoglobin (Bld) [Mass/Vol] 7.6 g/dL Low 13.0-17.0 [facility] Comment on above: Performed By: #### T ROPI #### [facility] [address] [place], [place] [address]83 Residential Sales Representative: Khadar Tang MD Immature granulocytes/100 WBC (Bld) 1 % High 0 [facility] Comment on above: Performed By: #### T ROPI #### [address] [place], [facility] [address] Residential Sales Representative: Khadar Tang MD Lymphocytes (Bld) [#/Vol] 1.63 10*3/uL Normal 1.10-3.70 [facility] Comment on above: Performed By: #### T ROPI #### [facility] [address] [place] [address] Dr. [place], [facility] [address] Residential Sales Representative: Khadar Tang MD Lymphocytes/100 WBC (Bld) 19 % Low 24-43 [facility] Comment on above: Performed By: #### T ROPI #### [address] [place] [address] [place] [address] Residential Sales Representative: Khadar Tang MD MCH (RBC) [Entitic mass] 23.7 pg Low 25.2-33.5 [facility] Comment on above: Performed By: #### T ROPI #### [facility] [address] [place] [address] Dr. [place], [facility] [address] Residential Sales Representative: Khadar Tang MD MCHC (RBC) [Mass/Vol] 30.9 g/dL Normal 28.4-34.8 [facility] Comment on above: Performed By: #### T ROPI #### [facility] [address] [place] [address] Residential Sales Representative: Khadar Tang MD MCV (RBC) [Entitic vol] 76.6 fL Low 82.6-102.9 [facility] Comment on above: Performed By: #### T ROPI #### [facility] [address] [place], [place] [id number] Residential Sales Representative: Khadar Tang MD Monocytes (Bld) [#/Vol] 0.76 10*3/uL Normal 0.10-1.20 [facility] Comment on above: Performed By: #### T ROPI #### [facility] [address] [place], [place] [address] Residential Sales Representative: Khadar Tang MD Monocytes/100 WBC (Bld) 9 % Normal 3-12 [facility] Comment on above: Performed By: #### T ROPI #### [address] [place], [facility] [address] ( Residential Sales Representative: Khadar Tang MD Neutrophil (Seg) 64 % Normal 36-65 [facility] Comment on above: Performed By: #### T ROPI #### [address] [place], [place] [address] Residential Sales Representative: Khadar Tang MD NRBC Automated 0.0 per 100 WBC Normal 0.0 [facility] Comment on above: Performed By: #### T ROPI #### [address] [place], [place] [address] Residential Sales Representative: Khadar Tang MD Platelet mean volume (Bld) [Entitic vol] 8.9 fL Normal 8.1-13.5 [facility] Comment on above: Performed By: #### T ROPI #### [address] [place], [facility] Residential Sales Representative: Khadar Tang MD Platelets (Bld) [#/Vol] 223 10*3/uL Normal 138-453 [facility] Comment on above: Performed By: #### T ROPI #### [facility] [address] [place], [place] [address]83 Residential Sales Representative: Khadar Tang MD RBC (Bld) [#/Vol] 3.21 10*6/uL Low 4.21-5.77 [facility] Comment on above: Performed By: #### T ROPI #### [facility] [address] [place], [place] [address] Residential Sales Representative: Khadar Tang MD WBC (Bld) [#/Vol] 8.7 10*3/uL Normal 3.5-11.3 [facility] Comment on above: Performed By: #### T ROPI #### [facility] [address] [place] [address] Residential Sales Representative: Khadar Tang MD Comp Metabolic Pr/rfx MGon 0 - Albumin [Mass/Vol] 2.8 g/dL Low 3.5-5.2 [facility] Comment on above: Performed By: #### T ROPI #### [facility] [address] [place], [place] [address]83 Residential Sales Representative: Khadar Tang MD Albumin/Glob Ratio 0.7 Low 1.0-2.5 [facility] Comment on above: Performed By: #### T ROPI #### [facility] [address] [place], [facility] Residential Sales Representative: Khadar Tang MD Alkaline Phos 75 U/L Normal 40-129 [facility] Comment on above: Performed By: #### T ROPI #### [facility] [address] [place], [place] [address]83 Residential Sales Representative: Khadar Tang MD ALT [Catalytic activity/Vol] 9 U/L Normal 5-41 [facility] Comment on above: Performed By: #### T ROPI #### [facility] [address] [place] [address] Residential Sales Representative: Khadar Tang MD Anion gap [Moles/Vol] 6 mmol/L Low 9-17 [facility] Comment on above: Performed By: #### T ROPI #### [facility] [address] [place] [address] Residential Sales Representative: Khadar Tang MD AST [Catalytic activity/Vol] 10 U/L Normal <40 [facility] Comment on above: Performed By: #### T ROPI #### [facility] [address] [place] [address] Residential Sales Representative: Khadar Tang MD Bilirubin [Mass/Vol] 0.3 mg/dL Normal 0.3-1.2 [facility] Comment on above: Performed By: #### T ROPI #### [facility] [address] [place] [address] Residential Sales Representative: Khadar Tang MD BUN/CRE Ratio 20 Normal 9-20 [facility] Comment on above: Performed By: #### T ROPI #### [facility] [address] [place] [address] [address] [place], [place] [address] Residential Sales Representative: Khadar Tnag MD Calcium [Mass/Vol] 8.7 mg/dL Normal 8.6-10.4 [facility] Comment on above: Performed By: #### T ROPI #### [facility] [address] [place] [address] Residential Sales Representative: Khadar Tang MD Chloride [Moles/Vol] 113 mmol/L High 98-107 [facility] Comment on above: Performed By: #### T ROPI #### [facility] [address] [place] [address] Residential Sales Representative: Khadar Tang MD CO2 [Moles/Vol] 20 mmol/L Normal 20-31 [facility] Comment on above: Performed By: #### T ROPI #### [facility] [address] [place] [address] Residential Sales Representative: Khadar Tang MD Creatinine [Mass/Vol] 0.97 mg/dL Normal 0.70-1.20 [facility] Comment on above: Performed By: #### T ROPI #### [facility] [address] [place], [place] [address] Residential Sales Representative: Khadar Tang MD GFR/1.73 sq M.predicted among non-blacks MDRD (S/P/Bld) [Vol rate/Area] mL/min/{1.73_m2} Normal >60 [facility] Comment on above: Result Comment: These [...] secretion. Performed By: #### T ROPI #### [address] [place] [address] [place] [address] Residential Sales Representative: Khadar Tang MD Glucose [Mass/Vol] 144 mg/dL High 70-99 [facility] Comment on above: Performed By: #### T ROPI #### [facility] [address] [place] [address] [place] [address] Residential Sales Representative: Khadar Tang MD Potassium [Moles/Vol] 4.5 mmol/L Normal 3.7-5.3 [facility] Comment on above: Performed By: #### T ROPI #### [facility] [address] [place] [address] [place] [address] Residential Sales Representative: Khadar Tang MD Protein [Mass/Vol] 6.7 g/dL Normal 6.4-8.3 [facility] Comment on above: Performed By: #### T ROPI #### [facility] [address] [place] [address] [place] [address] Residential Sales Representative: Khadar Tang MD Sodium [Moles/Vol] 139 mmol/L Normal 135-144 [facility] Comment on above: Performed By: #### T CINDYI #### [facility] [address] [place] [address] Residential Sales Representative: Khadar Tang MD Urea nitrogen [Mass/Vol] 19 mg/dL Normal 8-23 [facility] Comment on above: Performed By: #### T CINDYI #### [facility] [address] [place] [address] Residential Sales Representative: Khadar Tang MD Comprehensive Metabolic Pane l w/ Reflex to MGon 06-25-2022 Albumin [Mass/Vol] 2.8 g/dL Low 3.5 - 5.2 g/dL [facility] Albumin/Globulin [Mass ratio] 0.7 {ratio} Low 1.0 - 2.5 [facility] ALP [Catalytic activity/Vol] 75 U/L 40 - 129 U/L [facility] ALT [Catalytic activity/Vol] 9 U/L 5 - 41 U/L [facility] Anion gap [Moles/Vol] 6 mmol/L Low 9 - 17 mmol/L [facility] AST [Catalytic activity/Vol] 10 U/L NINF - 40 U/L [facility] Bilirubin [Mass/Vol] 0.3 mg/dL 0.3 - 1 .2 mg/dL [facility] Calcium [Mass/Vol] 8.7 mg/dL 8.6 - 10. 4 mg/dL [facility] Chloride [Moles/Vol] 113 mmol/L High 98 - 10 7 mmol/L [facility] CO2 [Moles/Vol] 20 mmol/L 20 - 31 mmol/L [facility] Creatinine [Mass/Vol] 0.97 mg/dL 0.70 - 1.20 mg/dL [facility] GFR/1.73 sq M.predicted MDRD (S/P/Bld) [Vol rate/Area] - PINF [facility] Comment on above: These [...] 144 mg/dL High 70 - 99 mg/dL [facility] Interpretation and review of laboratory results Abnormal [facility] Potassium [Moles/Vol] 4.5 mmol/L 3.7 - 5.3 mmol/L [facility] Protein [Mass/Vol] 6.7 g/dL 6.4 - 8.3 g/dL [facility] Sodium [Moles/Vol] 139 mmol/L 135 - 144 mmol/L [facility] Urea nitrogen [Mass/Vol] 19 mg/dL 8 - 23 mg/dL [facility] Urea nitrogen/Creatinine (Bld) [Mass ratio] 20 9 - 20 [facility] Cult,Woundon 06-25-2022 Cult,Wound Specimen Description .BUTTOCK Direct Exam FEW NEUTROPHILS MODERATE GRAM POSITIVE COCCI IN PAIRS MODERATE GRAM POSITIVE RODS Culture NORMAL SKIN ROBBIE Report Status FINAL 06/25/2022 [facility] Comment on above: Performed By: #### T ROPI #### [facility] [address] [place] [address] Residential Sales Representative: Khadar Tang MD EKG Rhythm Stripon 3 [facility] ml [facility] Occult Blood, Fecalon 2022 Occult Blood 1 Negative Normal NEG [facility] Comment on above: Performed By: #### C MPX, CDP #### [facility] [address] [place] [address] Residential Sales Representative: Khadar Tang MD Specimen 1 Date 03 [facility] Comment on above: Result Comment: Performed By: #### C MPX, CDP #### [facility] [address] [place] [address] Residential Sales Representative: Khadar Tang MD Specimen 1 Time 1944 [facility] Comment on above: Performed By: #### C MPX, CDP #### [facility] [address] [place] [address] Residential Sales Representative: Khadar Tang MD Surgical Pathologyon 023 Surgical [...] CONSULTATION Patient Name: GANGA STINSON [facility] Rec: [id number] Path Number: [id number] [facility] ANATOMIC PATHOLOGY [address] [place] [address]. [place], [place] [address] [facility] Comment on above: Performed By: #### C MPX, CDP #### [facility] [address] [place] [address] Residential Sales Representative: Khadar Tang MD TYPE AND SCREENon 06-25-2022 ABO/Rh Negative [facility] Arm Band Number [id number] [facility] Blood Bank Blood Product Expiration Date [id number] [facility] Blood Bank ISBT Product Blood Type 9500 [facility] Blood Bank Unit Type and Rh Negative [facility] Blood product type Nom (BPU) Leukocyte Reduced Red Cell RAIN [facility] Blood product unit ID (Dose) [#] [id number] [facility] Crossmatch Result COMPATIBLE RAIN [facility] Dispense Status TRANSFUSED RAIN [facility] Expiration Date 06/27/2022,2359 [facility] Product Code Blood Bank [id number] [facility] Transfusion Status OK TO TRANSFUSE B ON [facility] Unit Divison 0 [facility] Unit Issue Date/Time [id number] [facility] APTTon 06-24-2022 aPTT Coag (Bld) [Time] 35.6 s High 26.8-34.8 [facility] Comment on above: Result Comment: IV Heparin Therapy Range: 62.0-94.0 Performed By: #### C MPX, CDP #### [facility] [address] [place] [address] Dr. [place], [place] [address]48283 Residential Sales Representative: Khadar Tang MD B12/Folate Panelon Cobalamin (Vitamin B12) [Mass/Vol] 446 pg/mL Normal 232-1245 [facility] Comment on above: Performed By: #### C MPX, CDP #### [address] [place], [place] [address] Residential Sales Representative: Khadar Tang MD Folic Acid 8.2 ng/mL Normal >4.8 [facility] Comment on above: Performed By: #### C MPX, CDP #### [facility] [address] [place], [place] [address] Residential Sales Representative: Khadar Tang MD CBC auto differentialon 05-28 Absolute Eos # 0.46 High [facility]IN [facility] Absolute Immature Granulocyte 0.07 [facility] Absolute Lymph # 1.52 RAIN [facility] Absolute [place] # 0.53 [facility] Basophils (Bld) [#/Vol] 0.00 10*3/uL [facility] Hematocrit (Bld) [Volume fraction] 21.7 % Low 40.7 - 50.3 % [facility] Hemoglobin (Bld) [Mass/Vol] 6.6 g/dL Critically low 13.0 - 17.0 g/dL [facility] Interpretation and review of laboratory results Abnormal [facility] MCH (RBC) [Entitic mass] 23.4 pg Low 25.2 - 33.5 pg [facility] MCHC (RBC) [Mass/Vol] 30.4 g/dL 28.4 - 34.8 g/dL [facility] MCV (RBC) [Entitic vol] 77.0 fL Low 82.6 - 102.9 fL [facility] Morphology Álvaro (Bld) [Interp] HYPOCHROMIA PRESENT [facility] NRBC Automated 0.0 0.0 per 100 WBC [facility] Platelet distribution width (Bld) [Ratio] 16.2 % High 11.8 - 14.4 % [facility] Platelet mean volume (Bld) [Entitic vol] 8.9 fL 8.1 - 13.5 fL [facility] Platelets (Bld) [#/Vol] 208 10*3/uL [facility] RBC (Bld) [#/Vol] 2.82 10*6/uL Low 4.21 - 5.77 m/uL [facility] Segmented neutrophils/100 WBC (Bld) 61 % 36 - 65 % [facility] Segs Absolute 4.02 [facility] WBC (Bld) [#/Vol] 6.6 10*3/uL [facility] CBC with Diffon 06-24-2022 Abs. Basophil 0.00 k/uL Normal 0.0-0.2 [facility] Comment on above: Performed By: #### C FIFI, CDP #### [facility] [address] [place] [address] Residential Sales Representative: Khadar Tang MD Abs.Imm.Granulocyte 0.07 k/uL Normal 0.00-0.30 [facility] Comment on above: Performed By: #### C MPX, CDP #### [facility] [address] [place] [address] Residential Sales Representative: Khadar Tang MD Abs.Neutrophil (Seg) 4.02 k/uL Normal 1.50-8.10 [facility] Comment on above: Performed By: #### C MPX, CDP #### [facility] [address] [place], [place] [address] Residential Sales Representative: Khadar Tang MD Eosinophils (Bld) [#/Vol] 0.46 10*3/uL High 0.00-0.44 [facility] Comment on above: Performed By: #### C MPX, CDP #### [facility] [address] [place] [address] Residential Sales Representative: Khadar Tang MD Lymphocytes (Bld) [#/Vol] 1.52 10*3/uL Normal 1.10-3.70 [facility] Comment on above: Performed By: #### C MPX, CDP #### [address] [place] [address] Residential Sales Representative: Khadar Tang MD Monocytes (Bld) [#/Vol] 0.53 10*3/uL Normal 0.10-1.20 [facility] Comment on above: Performed By: #### C MPX, CDP #### [address] [place], [facility] [address] Residential Sales Representative: Khadar Tang MD Morphology Álvaro (Bld) [Interp] HYPOCHROMIA Normal [facility] Comment on above: Result Comment: PRES ENT Performed By: #### C MPX, CDP #### [facility] [address] [place], [place] [address] Residential Sales Representative: Khadar Tang MD Neutrophil (Seg) 61 % Normal 36-65 [facility] Comment on above: Performed By: #### C MPX, CDP #### [address] [place] [address] Residential Sales Representative: Khadar Tang MD Erythrocyte distribution width (RBC) [Ratio] 16.2 % High 11.8-14.4 [facility] Comment on above: Performed By: #### C MPX, CDP #### [address] [place] [address] Residential Sales Representative: Khadar Tang MD Hematocrit (Bld) [Volume fraction] 21.7 % Low 40.7-50.3 [facility] Comment on above: Performed By: #### C MPX, CDP #### [address] [place] [address] Residential Sales Representative: Khadar Tang MD Hemoglobin (Bld) [Mass/Vol] 6.6 g/dL Critically low 13.0-17.0 [facility] Comment on above: Performed By: #### C MPX, CDP #### [address] [place] [address] Residential Sales Representative: Khadar Tang MD MCH (RBC) [Entitic mass] 23.4 pg Low 25.2-33.5 [facility] Comment on above: Performed By: #### C MPX, CDP #### [address] [place] [address] Residential Sales Representative: Khadar Tang MD MCHC (RBC) [Mass/Vol] 30.4 g/dL Normal 28.4-34.8 [facility] Comment on above: Performed By: #### C MPX, CDP #### [address] [place] [address] Residential Sales Representative: Khadar Tang MD MCV (RBC) [Entitic vol] 77.0 fL Low 82.6-102.9 [facility] Comment on above: Performed By: #### C MPX, CDP #### [address] [place], [place] [address]83 Residential Sales Representative: Khadar Tang MD NRBC Automated 0.0 per 100 WBC Normal 0.0 [facility] Comment on above: Performed By: #### C MPX, CDP #### [facility] [address] [place], [place] [address]83 Residential Sales Representative: Khadar Tang MD Platelet mean volume (Bld) [Entitic vol] 8.9 fL Normal 8.1-13.5 [facility] Comment on above: Performed By: #### C MPX, CDP #### [address] [place], [place] [id number] Residential Sales Representative: Khadar Tang MD Platelets (Bld) [#/Vol] 208 10*3/uL Normal 138-453 [facility] Comment on above: Performed By: #### C MPX, CDP #### [address] [place], [place] [id number] Residential Sales Representative: Khadar Tang MD RBC (Bld) [#/Vol] 2.82 10*6/uL Low 4.21-5.77 [facility] Comment on above: Performed By: #### C MPX, CDP #### [address] [place], [place] [id number] Residential Sales Representative: Khadar Tang MD WBC (Bld) [#/Vol] 6.6 10*3/uL Normal 3.5-11.3 [facility] Comment on above: Performed By: #### C MPX, CDP #### [address] [place], [place] [id number] Residential Sales Representative: Khadar Tang MD Basophils/100 WBC (Bld) 0 % Normal 0-2 [facility] Comment on above: Performed By: #### C MPX, CDP #### [address] [place] [address] Residential Sales Representative: Khadar Tang MD Eosinophils/100 WBC (Bld) 7 % High 1-4 [facility] Comment on above: Performed By: #### C MPX, CDP #### [facility] [address] [place] [address] Residential Sales Representative: Khadar Tang MD Immature granulocytes/100 WBC (Bld) 1 % High 0 [facility] Comment on above: Performed By: #### C MPX, CDP #### [facility] [address] [place] [address] [place] [address] Residential Sales Representative: Khadar Tang MD Lymphocytes/100 WBC (Bld) 23 % Low 24-43 [facility] Comment on above: Performed By: #### C MPX, CDP #### [address] [place] [address] Residential Sales Representative: Khadar Tang MD Monocytes/100 WBC (Bld) 8 % Normal 3-12 [facility] Comment on above: Performed By: #### C MPX, CDP #### [address] [place] [address] Residential Sales Representative: Khadar Tang MD Comp Metabolic Pr/rfx MGon 0 - Albumin [Mass/Vol] 2.4 g/dL Low 3.5-5.2 [facility] Comment on above: Performed By: #### C MPX, CDP #### [facility] [address] [place] [address] [place] [address] Residential Sales Representative: Khadar Tang MD Albumin/Glob Ratio 0.6 Low 1.0-2.5 [facility] Comment on above: Performed By: #### C MPX, CDP #### [facility] [address] [place] [address] [place] [address] Residential Sales Representative: Khadar Tang MD Alkaline Phos 75 U/L Normal 40-129 [facility] Comment on above: Performed By: #### C MPX, CDP #### [facility] [address] [place], [place] [id number] Residential Sales Representative: Khadar Tang MD ALT [Catalytic activity/Vol] 9 U/L Normal 5-41 [facility] Comment on above: Performed By: #### C MPX, CDP #### [facility] [address] [place], [place] [id number] Residential Sales Representative: Khadar Tang MD Anion gap [Moles/Vol] 7 mmol/L Low 9-17 [facility] Comment on above: Performed By: #### C MPX, CDP #### [facility] [address] [place], [place] 0189383 Residential Sales Representative: Khadar Tang MD AST [Catalytic activity/Vol] 11 U/L Normal <40 [facility] Comment on above: Performed By: #### C MPX, CDP #### [facility] [address] [place], [place] [id number] Residential Sales Representative: Khadar Tang MD Bilirubin [Mass/Vol] mg/dL Low 0.3-1.2 [facility] Comment on above: Performed By: #### C MPX, CDP #### [facility] [address] [place], [place] [id number] Residential Sales Representative: Khadar Tang MD BUN/CRE Ratio 23 High 9-20 [facility] Comment on above: Performed By: #### C MPX, CDP #### [facility] [address] [place], [place] [address]7983 Residential Sales Representative: Khadar Tang MD Calcium [Mass/Vol] 8.5 mg/dL Low 8.6-10.4 [facility] Comment on above: Performed By: #### C MPX, CDP #### [facility] [address] [place], [place] 3810383 Residential Sales Representative: Khadar Tang MD Chloride [Moles/Vol] 115 mmol/L High 98-107 [facility] Comment on above: Performed By: #### C MPX, CDP #### [facility] [address] [place] [address] Residential Sales Representative: Khadar Tang MD CO2 [Moles/Vol] 18 mmol/L Low 20-31 [facility] Comment on above: Performed By: #### C MPX, CDP #### [facility] [address] [place] [address] Residential Sales Representative: Khadar Tang MD Creatinine [Mass/Vol] 1.11 mg/dL Normal 0.70-1.20 [facility] Comment on above: Performed By: #### C MPX, CDP #### [facility] [address] [place] [address] Residential Sales Representative: Khadar Tang MD GFR/1.73 sq M.predicted among non-blacks MDRD (S/P/Bld) [Vol rate/Area] mL/min/{1.73_m2} Normal >60 [facility] Comment on above: Result Comment: These [...] #### C MPX, CDP #### [facility] [address] [place] [address] Residential Sales Representative: Khadar Tang MD Glucose [Mass/Vol] 137 mg/dL High 70-99 [facility] Comment on above: Performed By: #### C MPX, CDP #### [facility] [address] [place] [address] Residential Sales Representative: Khadar Tang MD Potassium [Moles/Vol] 4.9 mmol/L Normal 3.7-5.3 [facility] Comment on above: Performed By: #### C MPX, CDP #### [facility] [address] [place] [address] Residential Sales Representative: Khadar Tang MD Protein [Mass/Vol] 6.3 g/dL Low 6.4-8.3 [facility] Comment on above: Performed By: #### C MPX, CDP #### [facility] [address] [place] [address] Residential Sales Representative: Khadar Tang MD Sodium [Moles/Vol] 140 mmol/L Normal 135-144 [facility] Comment on above: Performed By: #### C MPX, CDP #### [facility] [address] [place] [address] Residential Sales Representative: Khadar Tang MD Urea nitrogen [Mass/Vol] 26 mg/dL High 8-23 [facility] Comment on above: Performed By: #### C MPX, CDP #### [facility] [address] [place] [address] Residential Sales Representative: Khadar Tang MD Comprehensive Metabolic Pane l w/ Reflex to MGon 06-24-2022 Albumin [Mass/Vol] 2.4 g/dL Low 3.5 - 5.2 g/dL [facility] Albumin/Globulin [Mass ratio] 0.6 {ratio} Low 1.0 - 2.5 [facility] ALP [Catalytic activity/Vol] 75 U/L 40 - 129 U/L [facility] ALT [Catalytic activity/Vol] 9 U/L 5 - 41 U/L [facility] Anion gap [Moles/Vol] 7 mmol/L Low 9 - 17 mmol/L [facility] AST [Catalytic activity/Vol] 11 U/L NINF - 40 U/L [facility] Bilirubin [Mass/Vol] mg/dL Low 0.3 - 1 .2 mg/dL [facility] Calcium [Mass/Vol] 8.5 mg/dL Low 8.6 - 10. 4 mg/dL [facility] Chloride [Moles/Vol] 115 mmol/L High 98 - 10 7 mmol/L [facility] CO2 [Moles/Vol] 18 mmol/L Low 20 - 31 mmol/L [facility] Creatinine [Mass/Vol] 1.11 mg/dL 0.70 - 1.20 mg/dL [facility] GFR/1.73 sq M.predicted MDRD (S/P/Bld) [Vol rate/Area] - PINF [facility] Comment on above: These [...] 137 mg/dL High 70 - 99 mg/dL [facility] Interpretation and review of laboratory results Abnormal [facility] Potassium [Moles/Vol] 4.9 mmol/L 3.7 - 5.3 mmol/L [facility] Protein [Mass/Vol] 6.3 g/dL Low 6.4 - 8.3 g/dL [facility] Sodium [Moles/Vol] 140 mmol/L 135 - 144 mmol/L [facility] Urea nitrogen [Mass/Vol] 26 mg/dL High 8 - 23 mg/dL [facility] Urea nitrogen/Creatinine (Bld) [Mass ratio] 23 High 9 - 20 [facility] Culture, Wound Aerobic Onlyo n 06-24-2022 Interpretation and review of laboratory results Abnormal [facility] Microorganism identified Cx Nom (Unsp spec) NORMAL SKIN ROBBIE [facility] Microorganism or agent identified Nom (Unsp spec) FEW NEUTROPHILS Abnormal [facility] Specimen Description .BUTTOCK [facility] EKG 12 Leadon 06-24-2022 Atrial Rate 64 BPM [facility] Work Phone: P Moore 51 degrees [employer] Work Phone: P-R Interval 174 ms [employer] Work Phone: Q-T Interval 394 ms [employer] Work Phone: QRS Duration 94 ms [employer] Work Phone: QTc Calculation (Bazett) 406 ms [employer] Work Phone: R Moore 20 degrees [employer] Work Phone: T Moore 22 degrees [employer] Work Phone: Ventricular Rate 64 BPM [facility] [employer] Work Phone: Normal sinus rhythm Inferior infarct , age undetermined Abnormal ECG When compared with ECG of 22-JUN-2022 17:28, Minimal criteria for Inferior infarct is now Present Confirmed by Michelle Noe MD ([id number]) on 06/24/2022 10:31:37 PM [facility] RADIOLOGY Michelle Noe MD - 06/24/2022 Normal sinus rhythm Inferior infarct , age undetermined Abnormal ECG When compared with ECG of 22-JUN-2022 17:28, Minimal criteria for Inferior infarct is now Present Confirmed by Michelle Noe MD ([id number]) on 06/24/2022 10:31:37 PM [employer] Work Phone: [employer] Work Phone: EKG Rhythm Stripon 3 [facility] Echocardiogram complete 2D w ith doppler with coloron 06-24-2022 Left ventricular Ejection fraction 60 [employer] Work Phone: LVEF MODALITY ECHO [employer] [facility] Work Phone: [facility] Transthoracic Echocardiography Report (TTE) Patient Name ALLOWAY Date of Study 06/24/2022 GANGA Evans Date of 1960 Gender Male Age 61 year(s) Race Room Number 0334 Height: 71 inch, 180.34 cm Corporate ID [id number] Weight: 252 pounds, 114.3 kg # Patient Acct [id number] BSA: 2.33 m^2 BMI: 35.15 kg/m^2 # MR # [id number] [employer] Season[employer] Specialist Jeanette Clarke Interpreting Physician Michelle Noe Fellow Referring Nurse Shelly Mondragon, Practitioner DOLLY Interpreting Referring Physician Fellow Type of Study TTE procedure:2D Echocardiogram, M-Mode, Doppler, Color Doppler. Procedure Date Date: 06/24/2022 Start: 09:47 AM Study Location: [facility] Indications:Abnormal ECG. History / Tech. Comments: [...] - 06/24/2022 [facility] Transthoracic Echocardiography Report (TTE) Patient Name ALLOWAY Date of Study 06/24/2022 GANGA Evans Date of 1960 Gender Male Age 61 year(s) Race Room Number 0334 Height: 71 inch, 180.34 cm Corporate ID [id number] Weight: 252 pounds, 114.3 kg # Patient Acct [id number] BSA: 2.33 m^2 BMI: 35.15 kg/m^2 # MR # [id number] Retail Seasonal Specialist Jeanette Clarke Interpreting Physician Michelle Noe Fellow Referring Nurse Shelly Mondragon, Practitioner DOLLY Interpreting Referring Physician Fellow Type of Study TTE procedure:2D Echocardiogram, M-Mode, Doppler, Color Doppler. Procedure Date Date: 06/24/2022 Start: 09:47 AM Study Location: [facility] Indications:Abnormal ECG. History / Tech. Comments: [...] Wall E' velocity:0.13 m/s Lateral Wall E/E':9.8 [facility] [employer] Work Phone: [facility] [employer] Work Phone: Glucose, Whole Bloodon 06-24 Glucose [Mass/Vol] 114 mg/dL High 74 - 100 mg/dL [facility] Interpretation and review of laboratory results Abnormal [facility] Hemoglobin and Hematocriton 06-24-2022 Hematocrit (Bld) [Volume fraction] 25.1 % Low 40.7 - 50.3 % [facility] Hemoglobin (Bld) [Mass/Vol] 7.8 g/dL Low 13.0 - 17.0 g/dL [facility] Interpretation and review of laboratory results Abnormal [facility] Hgb/Hcton 06-24-2022 Hematocrit (Bld) [Volume fraction] 25.1 % Low 40.7-50.3 [facility] Comment on above: Performed By: #### C MPX, CDP #### [facility] [address] [place], [place] [address]83 Residential Sales Representative: Khadar Tang MD Hemoglobin (Bld) [Mass/Vol] 7.8 g/dL Low 13.0-17.0 [facility] Comment on above: Performed By: #### C MPX, CDP #### [facility] [address] [place], [place] [id number] Residential Sales Representative: Khadar Tang MD Iron Binding Cap.on 06-25-19 23 % Fe Saturation 19 % Low 20-55 [facility] Comment on above: Performed By: #### C MPX, CDP #### [facility] [address] [place], [place] [address]23383 Residential Sales Representative: Khadar Tang MD Iron [Mass/Vol] 33 ug/dL Low 59-158 [facility] Comment on above: Performed By: #### C MPX, CDP #### [facility] [address] [place] [address] [place] [place], [place] 593[address]83 Residential Sales Representative: Khadar Tang MD Total Fe Binding Cap 175 ug/dL Low 250-450 [facility] Comment on above: Performed By: #### C MPX, CDP #### [facility] [address] [place], [place] [address]67283 Residential Sales Representative: Khadar Tang MD Unbound Fe Bind Cap 142 ug/dL Normal 112-347 [facility] Comment on above: Performed By: #### C MPX, CDP #### [facility] [address] [place], [place] 8[address]83 Residential Sales Representative: Khadar Tang MD Iron and TIBCon 06-24-2022 Interpretation and review of laboratory results Abnormal [facility] Iron [Mass/Vol] 33 ug/dL Low 59 - 158 ug/dL [facility] Iron binding capacity [Mass/Vol] 175 ug/dL Low 250 - 450 ug/dL [facility] Iron Saturation 19 % Low 20 - 55 % [facility] UIBC 142 ug/dL 112 - 347 ug/dL [facility] Laboratory - Microbiology an d Antimicrobial susceptibilityon 06-24-2022 Microorganism or agent identified Nom (Unsp spec) Positive Abnormal [facility] Lipid Panelon 06-24-2022 Cholesterol [Mass/Vol] 147 mg/dL NINF - 200 mg/dL [facility] Comment on above: Cholesterol Guidelines: <200 Desirable 200-240 Borderline >240 Undesirable Cholesterol in HDL [Mass/Vol] 28 mg/dL Low 40 - PINF mg/dL [facility] Comment on above: HDL Guidelines: <40 Undesirable 40-59 Borderline >59 Desirable Cholesterol in LDL [Mass/Vol] 98 mg/dL 0 - 130 mg/dL [facility] Comment on above: LDL Guidelines: <100 Desirable 100-129 Near to/above Desirable 130-159 Borderline >159 Undesirable Direct (measured) LDL and calculated LDL are not interchangeable tests. Cholesterol.total/Cho lesterol in HDL [Mass ratio] 5.3 {ratio} High NINF - 5 [facility] Interpretation and review of laboratory results Abnormal [facility] Triglyceride [Mass/Vol] 107 mg/dL NINF - 150 mg/dL [facility] Comment on above: Triglyceride Guidelines: <150 Desirable 150-199 Borderline 200-499 High >499 Very high Based on AHA Guidelines for fasting triglyceride, December 2011. [facility] Lipid Profileon 06-24-2022 Cholesterol [Mass/Vol] 147 mg/dL Normal <200 [facility] Comment on above: Result Comment: Cholesterol Guidelines: <200 Desirable 200-240 Borderline >240 Undesirable Performed By: #### T RBENDA #### [facility] [address] [place] [address] Residential Sales Representative: Khadar Tang MD Cholesterol in HDL [Mass/Vol] 28 mg/dL Low >40 [facility] Comment on above: Result Comment: HDL Guidelines: <40 Undesirable 40-59 Borderline >59 Desirable Performed By: #### T CINDYI #### [facility] [address] [place], [place] [address] Residential Sales Representative: Khadar Tang MD Cholesterol in LDL [Mass/Vol] 98 mg/dL Normal 0-130 [facility] Comment on above: Result Comment: LDL Guidelines: <100 Desirable 100-129 Near to/above Desirable 130-159 Borderline >159 Undesirable Direct (measured) LDL and calculated LDL are not interchangeable tests. Performed By: #### T CINDYI #### [facility] [address] [place], [facility] [address] Residential Sales Representative: Khadar Tang MD Cholesterol.total/Cho lesterol in HDL [Mass ratio] 5.3 {ratio} High <5 [facility] Comment on above: Performed By: #### T CINDYI #### [facility] [address] [place] [address] Dr. [place], [facility] [address] Residential Sales Representative: Khadar Tang MD Triglyceride [Mass/Vol] 107 mg/dL Normal <150 [facility] Comment on above: Result Comment: Triglyceride Guidelines: <150 Desirable 150-199 Borderline 200-499 High >499 Very high Based on AHA Guidelines for fasting triglyceride, December 2011. Performed By: #### T CINDYI #### [address] [place], [facility] [address] Residential Sales Representative: Khadar Tang MD PTon 06-24-2022 INR Coag (PPP) [Relative time] 1.1 {INR} Normal [facility] Comment on above: Result Comment: Therapeutic Range: Moderate Anticoagulant Intensity: INR = 2.0-3.0 High Anticoagulant Intensity: INR = 2.5-3.5 Performed By: #### C MPX, CDP #### [facility] [address] [place], [place] [id number] Residential Sales Representative: Khadar Tang MD PT Coag (PPP) [Time] 14.8 s Normal 11.9-14.8 [facility] Comment on above: Performed By: #### C MPX, CDP #### [facility] [address] [place] [address] Residential Sales Representative: Khadar Tang MD PTTon 06-24-2022 aPTT Coag (Bld) [Time] 35.6 s High [facility] Comment on above: IV Heparin Therapy Range: 62.0-94.0 Interpretation and review of laboratory results Abnormal [facility] Protime-INRon 06-24-2022 INR Coag (PPP) [Relative time] 1.1 {INR} [facility] Comment on above: Therapeutic Range: Moderate Anticoagulant Intensity: INR = 2.0-3.0 High Anticoagulant Intensity: INR = 2.5-3.5 PT Coag (PPP) [Time] 14.8 s [facility] Troponinon 06-24-2022 Troponin, High Sens 57 ng/L Critically high 0-22 [facility] Comment on above: Result Comment: High Sensitivity Troponin values cannot be compared with other Troponin methodologies. Performed By: #### C MPX, CDP #### [facility] [address] [place] [address] [place] [address] Residential Sales Representative: Khadar Tang MD Interpretation and review of laboratory results Abnormal [facility] Troponin I.cardiac DL <= 0.01 ng/mL [Mass/Vol] 57 ng/L Critically high 0 - 22 ng/L [facility] Comment on above: High Sensitivity Tro ponin values cannot be compared with other Troponin methodologies. [facility] Troponin, High Sens 58 ng/L Critically high 0-22 [facility] Comment on above: Result Comment: High Sensitivity Troponin values cannot be compared with other Troponin methodologies. Performed By: #### T ROPI #### [facility] [address] [place] [address] Residential Sales Representative: Khadar Tang MD Interpretation and review of laboratory results Abnormal [facility] Troponin I.cardiac DL <= 0.01 ng/mL [Mass/Vol] 58 ng/L Critically high 0 - 22 ng/L [facility] Comment on above: High Sensitivity Tro ponin values cannot be compared with other Troponin methodologies. [facility] Troponin, High Sens 59 ng/L Critically high 0-22 [facility] Comment on above: Result Comment: High Sensitivity Troponin values cannot be compared with other Troponin methodologies. Performed By: #### C MPX, CDP #### [facility] [address] [place] [address] Residential Sales Representative: Khadar Tang MD Interpretation and review of laboratory results Abnormal [facility] Troponin I.cardiac DL <= 0.01 ng/mL [Mass/Vol] 59 ng/L Critically high 0 - 22 ng/L [facility] Comment on above: High Sensitivity Tro ponin values cannot be compared with other Troponin methodologies. [facility] Type + Screenon 06-24-2022 Type + Screen Sample Expiration 06/27/2022,2359 Arm Band Number [id number] ABO/Rh(D) A NEGATIVE Antibody Screen NEGATIVE Unit Number [id number] Blood Component Type Leukocyte Reduced Red Cell Unit Division 00 Status of Unit TRANSFUSED Transfusion Status OK TO TRANSFUSE Crossmatch Result COMPATIBLE Normal [facility] Comment on above: Performed By: #### C MPX, CDP #### [facility] [address] [place] [address] Residential Sales Representative: Khadar Tang MD Vitamin B12 & Folateon 06-24 Cobalamin (Vitamin B12) [Mass/Vol] 446 pg/mL 232 - 1245 pg/mL [facility] Folate [Mass/Vol] 8.2 ng/mL 4.8 - PINF ng/mL [facility] CBC auto differentialon 05-28 Absolute Eos # 0.65 High [facility] Absolute Immature Granulocyte 0.06 [facility] Absolute Lymph # 1.94 [facility] Absolute [place] # 0.72 [facility] Basophils (Bld) [#/Vol] 0.04 10*3/uL [facility] Basophils/100 WBC (Bld) 0 % 0 - 2 % [facility] Eosinophils/100 WBC (Bld) 7 % High 1 - 4 % [facility] Hematocrit (Bld) [Volume fraction] 25.0 % Low 40.7 - 50.3 % [facility] Hemoglobin (Bld) [Mass/Vol] 7.5 g/dL Low 13.0 - 17.0 g/dL [facility] Immature granulocytes/100 WBC (Bld) 1 % High 0 [facility] Interpretation and review of laboratory results Abnormal [facility] Lymphocytes/100 WBC (Bld) 22 % Low 24 - 43 % [facility] MCH (RBC) [Entitic mass] 23.3 pg Low 25.2 - 33.5 pg [facility] MCHC (RBC) [Mass/Vol] 30.0 g/dL 28.4 - 34.8 g/dL [facility] MCV (RBC) [Entitic vol] 77.6 fL Low 82.6 - 102.9 fL [facility] Monocytes/100 WBC (Bld) 8 % 3 - 12 % [facility] NRBC Automated 0.0 0.0 per 100 WBC [facility] Platelet distribution width (Bld) [Ratio] 16.4 % High 11.8 - 14.4 % [facility] Platelet mean volume (Bld) [Entitic vol] 8.7 fL 8.1 - 13.5 fL [facility] Platelets (Bld) [#/Vol] 263 10*3/uL [facility] RBC (Bld) [#/Vol] 3.22 10*6/uL Low 4.21 - 5.77 m/uL [facility] Segmented neutrophils/100 WBC (Bld) 62 % 36 - 65 % [facility] Segs Absolute 5.55 [facility] WBC (Bld) [#/Vol] 9.0 10*3/uL [facility] CBC with Diffon 06-23-2022 Abs. Basophil 0.04 k/uL Normal 0.00-0.20 [facility] Comment on above: Performed By: #### C MPX, CDP #### [facility] [address] [place], [place] [address] Residential Sales Representative: Khadar Tang MD Abs.Imm.Granulocyte 0.06 k/uL Normal 0.00-0.30 [facility] Comment on above: Performed By: #### C MPX, CDP #### [address] [place], [place] [address] Residential Sales Representative: Khadar Tang MD Abs.Neutrophil (Seg) 5.55 k/uL Normal 1.50-8.10 [facility] Comment on above: Performed By: #### C MPX, CDP #### [address] [place], [place] [address] Residential Sales Representative: Khadar Tang MD Basophils/100 WBC (Bld) 0 % Normal 0-2 [facility] Comment on above: Performed By: #### C MPX, CDP #### [address] [place], [place] [address] Residential Sales Representative: Khadar Tang MD Eosinophils (Bld) [#/Vol] 0.65 10*3/uL High 0.00-0.44 [facility] Comment on above: Performed By: #### C MPX, CDP #### [address] [place], [place] [address] Residential Sales Representative: Khadar Tang MD Eosinophils/100 WBC (Bld) 7 % High 1-4 [facility] Comment on above: Performed By: #### C MPX, CDP #### [address] [place] [address] Residential Sales Representative: Khadar Tang MD Erythrocyte distribution width (RBC) [Ratio] 16.4 % High 11.8-14.4 [facility] Comment on above: Performed By: #### C MPX, CDP #### [facility] [address] [place] [address] Residential Sales Representative: Khadar Tang MD Hematocrit (Bld) [Volume fraction] 25.0 % Low 40.7-50.3 [facility] Comment on above: Performed By: #### C MPX, CDP #### [facility] [address] [place], [place] [id number] Residential Sales Representative: Khadar Tang MD Hemoglobin (Bld) [Mass/Vol] 7.5 g/dL Low 13.0-17.0 [facility] Comment on above: Performed By: #### C MPX, CDP #### [address] [place] [address] Residential Sales Representative: Khadar Tang MD Immature granulocytes/100 WBC (Bld) 1 % High 0 [facility] Comment on above: Performed By: #### C MPX, CDP #### [address] [place], [place] [id number] Residential Sales Representative: Khadar Tang MD Lymphocytes (Bld) [#/Vol] 1.94 10*3/uL Normal 1.10-3.70 [facility] Comment on above: Performed By: #### C MPX, CDP #### [address] [place], [place] [id number] Residential Sales Representative: Khadar Tang MD Lymphocytes/100 WBC (Bld) 22 % Low 24-43 [facility] Comment on above: Performed By: #### C MPX, CDP #### [facility] [address] [place] [address] Residential Sales Representative: Khadar Tang MD MCH (RBC) [Entitic mass] 23.3 pg Low 25.2-33.5 [facility] Comment on above: Performed By: #### C MPX, CDP #### [facility] [address] [place], [place] 9114783 Residential Sales Representative: Khadar Tang MD MCHC (RBC) [Mass/Vol] 30.0 g/dL Normal 28.4-34.8 [facility] Comment on above: Performed By: #### C MPX, CDP #### [facility] [address] [place], [place] 0853483 Residential Sales Representative: Khadar Tang MD MCV (RBC) [Entitic vol] 77.6 fL Low 82.6-102.9 [facility] Comment on above: Performed By: #### C MPX, CDP #### [address] [place] [address] Residential Sales Representative: Khadar Tang MD Monocytes (Bld) [#/Vol] 0.72 10*3/uL Normal 0.10-1.20 [facility] Comment on above: Performed By: #### C MPX, CDP #### [facility] [address] [place] [address] [address] [place], [place] [id number] Residential Sales Representative: Khadar Tang MD Monocytes/100 WBC (Bld) 8 % Normal 3-12 [facility] Comment on above: Performed By: #### C MPX, CDP #### [address] [place], [place] [id number] Residential Sales Representative: Khadar Tang MD Neutrophil (Seg) 62 % Normal 36-65 [facility] Comment on above: Performed By: #### C MPX, CDP #### [facility] [address] [place], [place] 9686383 Residential Sales Representative: Khadar Tang MD NRBC Automated 0.0 per 100 WBC Normal 0.0 [facility] Comment on above: Performed By: #### C MPX, CDP #### [facility] [address] [place], [place] [id number] Residential Sales Representative: Khadar Tang MD Platelet mean volume (Bld) [Entitic vol] 8.7 fL Normal 8.1-13.5 [facility] Comment on above: Performed By: #### C MPX, CDP #### [facility] [address] [place], [place] 0872483 Residential Sales Representative: Khadar Tang MD Platelets (Bld) [#/Vol] 263 10*3/uL Normal 138-453 [facility] Comment on above: Performed By: #### C MPX, CDP #### [facility] [address] [place], [place] 1083383 Residential Sales Representative: Khadar Tang MD RBC (Bld) [#/Vol] 3.22 10*6/uL Low 4.21-5.77 [facility] Comment on above: Performed By: #### C MPX, CDP #### [facility] [address] [place], [place] 6991783 Residential Sales Representative: Khadar Tang MD WBC (Bld) [#/Vol] 9.0 10*3/uL Normal 3.5-11.3 [facility] Comment on above: Performed By: #### C MPX, CDP #### [facility] [address] [place], [place] 1388183 Residential Sales Representative: Khadar Tang MD Comp Metabolic Pr/rfx MGon 0 - Albumin [Mass/Vol] 2.9 g/dL Low 3.5-5.2 [facility] Comment on above: Performed By: #### C MPX, CDP #### [facility] [address] [place], [place] [id number] Residential Sales Representative: Khadar Tang MD Albumin/Glob Ratio 0.7 Low 1.0-2.5 [facility] Comment on above: Performed By: #### C MPX, CDP #### [facility] [address] [place], [place] 5882083 Residential Sales Representative: Khadar Tang MD Alkaline Phos 89 U/L Normal 40-129 [facility] Comment on above: Performed By: #### C MPX, CDP #### [facility] [address] [place], [place] 9755283 Residential Sales Representative: Khadar Tang MD ALT [Catalytic activity/Vol] 11 U/L Normal 5-41 [facility] Comment on above: Performed By: #### C MPX, CDP #### [facility] [address] [place], [place] 7391783 Residential Sales Representative: Khadar Tang MD Anion gap [Moles/Vol] 8 mmol/L Low 9-17 [facility] Comment on above: Performed By: #### C MPX, CDP #### [facility] [address] [place], [place] 0802283 Residential Sales Representative: Khadar Tang MD AST [Catalytic activity/Vol] 12 U/L Normal <40 [facility] Comment on above: Performed By: #### C MPX, CDP #### [facility] [address] [place], [place] 1332883 Residential Sales Representative: Khadar Tang MD Bilirubin [Mass/Vol] 0.2 mg/dL Low 0.3-1.2 [facility] Comment on above: Performed By: #### C MPX, CDP #### [facility] [address] [place], [place] 7798283 Residential Sales Representative: Khadar Tang MD BUN/CRE Ratio 25 High 9-20 [facility] Comment on above: Performed By: #### C MPX, CDP #### [facility] [address] [place], [place] 3993783 Residential Sales Representative: Khadar Tang MD Calcium [Mass/Vol] 9.0 mg/dL Normal 8.6-10.4 [facility] Comment on above: Performed By: #### C MPX, CDP #### [facility] [address] [place] [address] Residential Sales Representative: Khadar Tang MD Chloride [Moles/Vol] 115 mmol/L High 98-107 [facility] Comment on above: Performed By: #### C MPX, CDP #### [facility] [address] [place], [place] [address] Residential Sales Representative: Khadar Tang MD CO2 [Moles/Vol] 17 mmol/L Low 20-31 [facility] Comment on above: Performed By: #### C MPX, CDP #### [facility] [address] [place], [place] [address] Residential Sales Representative: Khadar Tang MD Creatinine [Mass/Vol] 1.55 mg/dL High 0.70-1.20 [facility] Comment on above: Performed By: #### C MPX, CDP #### [facility] [address] [place], [place] [address] Residential Sales Representative: Khadar Tang MD GFR/1.73 sq M.predicted among non-blacks MDRD (S/P/Bld) [Vol rate/Area] 51 mL/min/{1.73_m2} Low >60 [facility] Comment on above: Result Comment: These [...] #### C MPX, CDP #### [facility] [address] [place], [place] [address] Residential Sales Representative: Khadar Tang MD Glucose [Mass/Vol] 119 mg/dL High 70-99 [facility] Comment on above: Performed By: #### C MPX, CDP #### [facility] [address] [place], [place] [address] Residential Sales Representative: Khadar Tang MD Potassium [Moles/Vol] 5.4 mmol/L High 3.7-5.3 [facility] Comment on above: Performed By: #### C MPX, CDP #### [facility] [address] [place], [place] [address] Residential Sales Representative: Khadar Tang MD Protein [Mass/Vol] 7.1 g/dL Normal 6.4-8.3 [facility] Comment on above: Performed By: #### C MPX, CDP #### [facility] [address] [place], [place] [address] Residential Sales Representative: Khadar Tang MD Sodium [Moles/Vol] 140 mmol/L Normal 135-144 [facility] Comment on above: Performed By: #### C MPX, CDP #### [facility] [address] [place], [place] [address] Residential Sales Representative: Khadar Tang MD Urea nitrogen [Mass/Vol] 38 mg/dL High 8-23 [facility] Comment on above: Performed By: #### C MPX, CDP #### [facility] [address] [place], [place] [address] Residential Sales Representative: Khadar Tang MD Comprehensive Metabolic Pane l w/ Reflex to MGon 06-23-2022 Albumin [Mass/Vol] 2.9 g/dL Low 3.5 - 5.2 g/dL [facility] Albumin/Globulin [Mass ratio] 0.7 {ratio} Low 1.0 - 2.5 [facility] ALP [Catalytic activity/Vol] 89 U/L 40 - 129 U/L [facility] ALT [Catalytic activity/Vol] 11 U/L 5 - 41 U/L [facility] Anion gap [Moles/Vol] 8 mmol/L Low 9 - 17 mmol/L [facility] AST [Catalytic activity/Vol] 12 U/L NINF - 40 U/L [facility] Bilirubin [Mass/Vol] 0.2 mg/dL Low 0.3 - 1 .2 mg/dL [facility] Calcium [Mass/Vol] 9.0 mg/dL 8.6 - 10. 4 mg/dL [facility] Chloride [Moles/Vol] 115 mmol/L High 98 - 10 7 mmol/L [facility] CO2 [Moles/Vol] 17 mmol/L Low 20 - 31 mmol/L [facility] Creatinine [Mass/Vol] 1.55 mg/dL High 0.70 - 1.20 mg/dL [facility] GFR/1.73 sq M.predicted MDRD (S/P/Bld) [Vol rate/Area] 51 mL/min/{1.73_m2} Low - PINF [facility] Comment on above: These [...] 119 mg/dL High 70 - 99 mg/dL [facility] Interpretation and review of laboratory results Abnormal [facility] Potassium [Moles/Vol] 5.4 mmol/L High 3.7 - 5.3 mmol/L [facility] Protein [Mass/Vol] 7.1 g/dL 6.4 - 8.3 g/dL [facility] Sodium [Moles/Vol] 140 mmol/L 135 - 144 mmol/L [facility] Urea nitrogen [Mass/Vol] 38 mg/dL High 8 - 23 mg/dL [facility] Urea nitrogen/Creatinine (Bld) [Mass ratio] 25 High 9 - 20 [facility] EKG 12 LeadOrdered By: Michelle de la rosa on 06-23-2022 Atrial Rate 60 BPM [facility] [employer] Work Phone: P Moore 55 degrees [facility] [employer] Work Phone: P-R Interval 182 ms [facility] [employer] Work Phone: Q-T Interval 388 ms [employer]IN [employer] Work Phone: QRS Duration 88 ms RANI POWELL [employer] Work Phone: QTc Calculation (Bazett) 388 ms [employer]IN [employer] Work Phone: R Moore 15 degrees [employer] Work Phone: T Moore 40 degrees [employer]IN [employer] Work Phone: Ventricular Rate 60 BPM RAIN GUTIÉRREZO STEWART [employer] Work Phone: RAIN [employer] Work Phone: EKG 12 Leadon 06-23-2022 Poor [...] Noe MD ([id number]) on 06/23/2022 3:18:16 PM [facility] RADIOLOGY Michelle Noe MD [...] Noe MD ([id number]) on 06/23/2022 3:18:16 PM [employer] Work Phone: EKG Rhythm Stripon 3 [facility] Glucose, Whole Bloodon 06-23 Glucose [Mass/Vol] 230 mg/dL High 74 - 100 mg/dL [facility]ENTER[facility]iquidPl[facility]ENTEROakland Single [facility] Interpretation and review of laboratory results Abnormal [facility] Urinalysison 06-23-2022 Bilirubin Urine Negative NEGATIVE [facility] Color, UA Yellow Yellow [facility] Glucose Auto test strip (U) [Mass/Vol] Negative NEGATIVE [facility] Ketones (U) [Mass/Vol] Negative NEGATIVE [facility] Leukocyte esterase Auto test strip Ql (U) Negative NEGATIVE [facility] Nitrite Auto test strip Ql (U) Negative NEGATIVE [facility] Protein (U) [Mass/Vol] 6.0 mg/dL 5.0 - 9.0 [facility] Protein (U) [Mass/Vol] Negative NEGATIVE [facility] Specific Boelus, UA 1.020 1.010 - 1.020 [facility] Turbidity UA Clear Clear [facility] Urine Hgb Negative NEGATIVE [facility] Urobilinogen, Urine Normal Normal [facility] Urinalysis, Routineon 2022 Bilirubin, SemiQt,Ur Negative Normal NEG [facility] Comment on above: Performed By: #### U A #### [facility] [address] [place] [address] [place] [place], [place] [address] Residential Sales Representative: Khadar Tang MD Blood, Urine Negative Normal NEG [facility] Comment on above: Performed By: #### U A #### [facility] [address] [place] [address] [place] [address] Residential Sales Representative: Khadar Tang MD Clarity (U) Clear Normal CLEAR [facility] Comment on above: Performed By: #### U A #### [facility] [address] [place], [place] [address] Residential Sales Representative: Khadar Tang MD Color (U) Yellow Normal YEL [facility] Comment on above: Performed By: #### U A #### [facility] [address] [place], [place] [address] Residential Sales Representative: Khadar Tang MD Glucose Ql (U) Negative Normal NEG [facility] Comment on above: Performed By: #### U A #### [facility] [address] [place], [place] 260[address]83 Residential Sales Representative: Khadar Tang MD Ketones Ql (U) Negative Normal NEG [facility] Comment on above: Performed By: #### U A #### [facility] [address] [place] [address] Dr. [place], [place] [id number] Residential Sales Representative: Khadar Tang MD Leukocyte esterase Test strip Ql (U) Negative Normal NEG [facility] Comment on above: Performed By: #### U A #### [facility] [address] [place] [address] Dr. [place], [place] 2737783 Residential Sales Representative: Khadar Tang MD Nitrite,Ur Negative Normal NEG [facility] Comment on above: Performed By: #### U A #### [facility] [address] [place] [address] Dr. [place], [place] 4782383 Residential Sales Representative: Khadar Tang MD PH,Ur 6.0 Normal 5.0-9.0 [facility] Comment on above: Performed By: #### U A #### [address] [place] [address] Residential Sales Representative: Khadar Tang MD Protein Ql (U) Negative Normal NEG [facility] Comment on above: Performed By: #### U A #### [facility] [address] [place] [address] Dr. [place], [facility] [address] Residential Sales Representative: Khadar Tang MD Spec. Boelus,Ur 1.020 Normal 1.010-1.02 0 [facility] Comment on above: Performed By: #### U A #### [facility] [address] [place] [address] Dr. [place], [place] 2677583 Residential Sales Representative: Khadar Tang MD Urobilinogen,Ur Normal Normal NORM [facility] Comment on above: Performed By: #### U A #### [facility] [address] [place] [address] [place], [place] [address] Residential Sales Representative: Khadar Tang MD XR ANKLE RIGHT (MIN [...] Derrick Squires MD 06/23/22 Final result Normal [facility] 1. Nonspecific diffu se subcutaneous edema. 2. Periostitis at the lateral aspect of the fibula distally. There was osteomyelitis in this region previously. This could reflect chronic osteomyelitis. Elsewhere, there is no subcutaneous air or evidence of osteomyelitis. [facility] EXAMINATION: THREE XRAY [...] lesion is noted. Calcaneal spurring appears unchanged. [facility] Derrick Squires MD [...] no subcutaneous air or evidence of osteomyelitis. [employer] Work Phone: Radiology Study observation (narrative) [employer] Phone: XR ANKLE RIGHT (MIN 3 VIEWS) Ordered By: Derrick Squires on 06-23-2022 [employer] Phone: Basic Metabolic Panelon 05-28 Anion gap [Moles/Vol] 9 mmol/L 9 - 17 mmol/L [employer] Calcium [Mass/Vol] 9.5 mg/dL 8.6 - 10. 4 mg/dL [employer] Chloride [Moles/Vol] 112 mmol/L High 98 - 10 7 mmol/L [employer] CO2 [Moles/Vol] 17 mmol/L Low 20 - 31 mmol/L [employer] Creatinine [Mass/Vol] 2 mg/dL High 0.70 - 1.20 mg/dL [employer] GFR/1.73 sq M.predicted MDRD (S/P/Bld) [Vol rate/Area] 38 mL/min/{1.73_m2} Low - PINF [employer] Comment on above: These results are not [...] 137 mg/dL High 70 - 99 mg/dL [employer] Interpretation and review of laboratory results Abnormal [employer] Potassium [Moles/Vol] 6.1 mmol/L Critically high 3.7 - 5.3 mmol/L [facility] Sodium [Moles/Vol] 138 mmol/L 135 - 144 mmol/L [facility] Urea nitrogen [Mass/Vol] 45 mg/dL High 8 - 23 mg/dL [facility] Urea nitrogen/Creatinine (Bld) [Mass ratio] 23 High 9 - 20 [facility] Basic Metabolic Profon 06-22 Potassium [Moles/Vol] 6.1 mmol/L Critically high 3.7-5.3 [facility] Comment on above: Performed By: #### T ROPI #### [facility] [address] [place], [place] [address] Residential Sales Representative: Khadar Tang MD Anion gap [Moles/Vol] 9 mmol/L Normal 9-17 [facility] Comment on above: Performed By: #### T ROPI #### [facility] [address] [place], [place] [id number] Residential Sales Representative: Khadar Tang MD BUN/CRE Ratio 23 High 9-20 [facility] Comment on above: Performed By: #### T ROPI #### [facility] [address] [place], [place] 8265783 Residential Sales Representative: Khadar Tang MD Calcium [Mass/Vol] 9.5 mg/dL Normal 8.6-10.4 [facility] Comment on above: Performed By: #### T ROPI #### [facility] [address] [place], [place] [address] Residential Sales Representative: Khadar Tang MD Chloride [Moles/Vol] 112 mmol/L High 98-107 [facility] Comment on above: Performed By: #### T ROPI #### [facility] [address] [place], [place] [address] Residential Sales Representative: Khadar Tang MD CO2 [Moles/Vol] 17 mmol/L Low 20-31 [facility] Comment on above: Performed By: #### T CINDYI #### [facility] [address] [place] [address] Residential Sales Representative: Khadar Tang MD Creatinine [Mass/Vol] 2.00 mg/dL High 0.70-1.20 [facility] Comment on above: Performed By: #### T CINDYI #### [facility] [address] [place] [address] Residential Sales Representative: Khadar Tang MD GFR/1.73 sq M.predicted among non-blacks MDRD (S/P/Bld) [Vol rate/Area] 38 mL/min/{1.73_m2} Low >60 [facility] Comment on above: Result Comment: These [...] renal tubular secretion. Performed By: #### T CINDYI #### [facility] [address] [place], [place] [address] Residential Sales Representative: Khadar Tang MD Glucose [Mass/Vol] 137 mg/dL High 70-99 [facility] Comment on above: Performed By: #### T CINDYI #### [facility] [address] [place] [address] Residential Sales Representative: Khadar Tang MD Sodium [Moles/Vol] 138 mmol/L Normal 135-144 [facility] Comment on above: Performed By: #### T CINDYI #### [facility] [address] [place], [place] [address] Residential Sales Representative: Khadar Tang MD Urea nitrogen [Mass/Vol] 45 mg/dL High 8-23 [facility] Comment on above: Performed By: #### T ROPI #### [facility] [address] [place], [place] [address] Residential Sales Representative: Khadar Tang MD CBC with Auto Differentialon 06-22-2022 Absolute Eos # 0.86 High [facility] Absolute Immature Granulocyte 0.09 [facility] Absolute Lymph # 1.97 [facility] Absolute [place] # 0.88 [facility] Basophils (Bld) [#/Vol] 0.05 10*3/uL [facility] Basophils/100 WBC (Bld) 0 % 0 - 2 % [facility] Eosinophils/100 WBC (Bld) 7 % High 1 - 4 % [facility] Hematocrit (Bld) [Volume fraction] 27.6 % Low 40.7 - 50.3 % [facility] Hemoglobin (Bld) [Mass/Vol] 8.3 g/dL Low 13.0 - 17.0 g/dL [facility] Immature granulocytes/100 WBC (Bld) 1 % High 0 [facility] Interpretation and review of laboratory results Abnormal [facility] Lymphocytes/100 WBC (Bld) 15 % Low 24 - 43 % [facility] MCH (RBC) [Entitic mass] 23.3 pg Low 25.2 - 33.5 pg [facility] MCHC (RBC) [Mass/Vol] 30.1 g/dL 28.4 - 34.8 g/dL [facility] MCV (RBC) [Entitic vol] 77.5 fL Low 82.6 - 102.9 fL [facility] Monocytes/100 WBC (Bld) 7 % 3 - 12 % [facility] NRBC Automated 0.0 0.0 per 100 WBC [facility] Platelet distribution width (Bld) [Ratio] 16.2 % High 11.8 - 14.4 % [facility] Platelet mean volume (Bld) [Entitic vol] 8.6 fL 8.1 - 13.5 fL [facility] Platelets (Bld) [#/Vol] 338 10*3/uL [facility] RBC (Bld) [#/Vol] 3.56 10*6/uL Low 4.21 - 5.77 m/uL [facility] Segmented neutrophils/100 WBC (Bld) 70 % High 36 - 65 % [facility] Segs Absolute 8.91 High [facility] WBC (Bld) [#/Vol] 12.8 10*3/uL High [facility] Absolute Eos # 0.84 High [facility] Absolute Immature Granulocyte 0.06 [facility] Absolute Lymph # 1.69 [facility] Absolute [place] # 0.82 [facility] Basophils (Bld) [#/Vol] 0.04 10*3/uL [facility] Basophils/100 WBC (Bld) 0 % 0 - 2 % [facility] Eosinophils/100 WBC (Bld) 7 % High 1 - 4 % [facility] Hematocrit (Bld) [Volume fraction] 27.1 % Low 40.7 - 50.3 % [facility] Hemoglobin (Bld) [Mass/Vol] 8.7 g/dL Low 13.0 - 17.0 g/dL [facility] Immature granulocytes/100 WBC (Bld) 1 % High 0 [facility] Interpretation and review of laboratory results Abnormal [facility] Lymphocytes/100 WBC (Bld) 14 % Low 24 - 43 % [facility] MCH (RBC) [Entitic mass] 25.3 pg 25.2 - 33.5 pg [facility] MCHC (RBC) [Mass/Vol] 32.1 g/dL 28.4 - 34.8 g/dL [facility] MCV (RBC) [Entitic vol] 78.8 fL Low 82.6 - 102.9 fL [facility] Monocytes/100 WBC (Bld) 7 % 3 - 12 % [facility] NRBC Automated 0.0 0.0 per 100 WBC [facility] Platelet distribution width (Bld) [Ratio] 16.4 % High 11.8 - 14.4 % [facility] Platelet mean volume (Bld) [Entitic vol] 9.4 fL 8.1 - 13.5 fL [facility] Platelets (Bld) [#/Vol] 345 10*3/uL [facility] RBC (Bld) [#/Vol] 3.44 10*6/uL Low 4.21 - 5.77 m/uL [facility] Segmented neutrophils/100 WBC (Bld) 71 % High 36 - 65 % [facility] Segs Absolute 9.06 High [facility] WBC (Bld) [#/Vol] 12.5 10*3/uL High [facility] CBC with Diffon 06-22-2022 Abs. Basophil 0.05 k/uL Normal 0.00-0.20 [facility] Comment on above: Performed By: #### C DP MG, CP #### [facility] [address] [place] [address] [place] [address] Residential Sales Representative: Khadar Tang MD Abs.Imm.Granulocyte 0.09 k/uL Normal 0.00-0.30 [facility] Comment on above: Performed By: #### C ZANDER MG, CP #### [facility] [address] [place] [address] [address] [address] Residential Sales Representative: Khadar Tang MD Abs.Neutrophil (Seg) 8.91 k/uL High 1.50-8.10 [facility] Comment on above: Performed By: #### C DP MG, CP #### [facility] [address] [place] [address] [place] [address] Residential Sales Representative: Khadar Tang MD Basophils/100 WBC (Bld) 0 % Normal 0-2 [facility] Comment on above: Performed By: #### C DP, MG, CP #### [facility] [address] [place] [address] [address] [address] Residential Sales Representative: Khadar Tang MD Eosinophils (Bld) [#/Vol] 0.86 10*3/uL High 0.00-0.44 [facility] Comment on above: Performed By: #### C DP, MG, CP #### [facility] [address] [place] [address] Dr. Suárez, [facility] Residential Sales Representative: Khadar Tang MD Eosinophils/100 WBC (Bld) 7 % High 1-4 [facility] Comment on above: Performed By: #### C DP, MG, CP #### [address] [place], [place] [address] Residential Sales Representative: Khadar Tang MD Erythrocyte distribution width (RBC) [Ratio] 16.2 % High 11.8-14.4 [facility] Comment on above: Performed By: #### C DP, MG, CP #### [address] [place] [address] Residential Sales Representative: Khadar Tang MD Hematocrit (Bld) [Volume fraction] 27.6 % Low 40.7-50.3 [facility] Comment on above: Performed By: #### C DP, MG, CP #### [address] [place], [place] [address] Residential Sales Representative: Khadar Tang MD Hemoglobin (Bld) [Mass/Vol] 8.3 g/dL Low 13.0-17.0 [facility] Comment on above: Performed By: #### C DP, MG, CP #### [address] [place], [place] [address] Residential Sales Representative: Khadar Tang MD Immature granulocytes/100 WBC (Bld) 1 % High 0 [facility] Comment on above: Performed By: #### C DP, MG, CP #### [address] [place] [address] Residential Sales Representative: Khadar Tang MD Lymphocytes (Bld) [#/Vol] 1.97 10*3/uL Normal 1.10-3.70 [facility] Comment on above: Performed By: #### C DP, MG, CP #### [facility] [address] [place] [address] Residential Sales Representative: Khadar Tang MD Lymphocytes/100 WBC (Bld) 15 % Low 24-43 [facility] Comment on above: Performed By: #### C DP, MG, CP #### [address] [place], [facility] [address] Residential Sales Representative: Khadar Tang MD MCH (RBC) [Entitic mass] 23.3 pg Low 25.2-33.5 [facility] Comment on above: Performed By: #### C DP, MG, CP #### [address] [place] [id number] Residential Sales Representative: Khadar Tang MD MCHC (RBC) [Mass/Vol] 30.1 g/dL Normal 28.4-34.8 [facility] Comment on above: Performed By: #### C DP, MG, CP #### [address] [place], [facility] [address] Residential Sales Representative: Khadar Tang MD MCV (RBC) [Entitic vol] 77.5 fL Low 82.6-102.9 [facility] Comment on above: Performed By: #### C DP, MG, CP #### [address] [place], [facility] Residential Sales Representative: Khadar Tang MD Monocytes (Bld) [#/Vol] 0.88 10*3/uL Normal 0.10-1.20 [facility] Comment on above: Performed By: #### C DP, MG, CP #### [address] [place] [address] Residential Sales Representative: Khadar Tang MD Monocytes/100 WBC (Bld) 7 % Normal 3-12 [facility] Comment on above: Performed By: #### C DP, MG, CP #### [address] [place], [facility] [address] Residential Sales Representative: Khadar Tang MD Neutrophil (Seg) 70 % High 36-65 [facility] Comment on above: Performed By: #### C DP, MG, CP #### [address] [place], [place] [id number] Residential Sales Representative: Khadar Tang MD NRBC Automated 0.0 per 100 WBC Normal 0.0 [facility] Comment on above: Performed By: #### C DP, MG, CP #### [facility] [address] [place] [address] Dr. Suárez, [facility] [address] Residential Sales Representative: Khadar Tang MD Platelet mean volume (Bld) [Entitic vol] 8.6 fL Normal 8.1-13.5 [facility] Comment on above: Performed By: #### C DP, MG, CP #### [address] [place], [facility] [address] Residential Sales Representative: Khadar Tang MD Platelets (Bld) [#/Vol] 338 10*3/uL Normal 138-453 [facility] Comment on above: Performed By: #### C DP, MG, CP #### [address] [place], [place] [id number] Residential Sales Representative: Khadar Tang MD RBC (Bld) [#/Vol] 3.56 10*6/uL Low 4.21-5.77 [facility] Comment on above: Performed By: #### C DP, MG, CP #### [facility] [address] [place] [address] Dr. [place], [place] [id number] Residential Sales Representative: Khadar Tang MD WBC (Bld) [#/Vol] 12.8 10*3/uL High 3.5-11.3 [facility] Comment on above: Performed By: #### C DP, MG, CP #### [address] [place], [facility] [address] Residential Sales Representative: Khadar Tang MD Abs. Basophil 0.04 k/uL Normal 0.00-0.20 [facility] Comment on above: Performed By: #### T ROPI #### [facility] [address] [place] [address] Residential Sales Representative: Khadar Tang MD Abs.Imm.Granulocyte 0.06 k/uL Normal 0.00-0.30 [facility] Comment on above: Performed By: #### T ROPI #### [facility] [address] [place], [place] [address] Residential Sales Representative: Khadar Tang MD Abs.Neutrophil (Seg) 9.06 k/uL High 1.50-8.10 [facility] Comment on above: Performed By: #### T ROPI #### [address] [place] [id number] Residential Sales Representative: Khadar Tang MD Basophils/100 WBC (Bld) 0 % Normal 0-2 [facility] Comment on above: Performed By: #### T ROPI #### [address] [place], [place] [address] Residential Sales Representative: Khadar Tang MD Eosinophils (Bld) [#/Vol] 0.84 10*3/uL High 0.00-0.44 [facility] Comment on above: Performed By: #### T ROPI #### [facility] [address] [place], [place] [address] Residential Sales Representative: Khadar Tang MD Eosinophils/100 WBC (Bld) 7 % High 1-4 [facility] Comment on above: Performed By: #### T ROPI #### [address] [place] [address] Residential Sales Representative: Khadar Tang MD Erythrocyte distribution width (RBC) [Ratio] 16.4 % High 11.8-14.4 [facility] Comment on above: Performed By: #### T ROPI #### [facility] [address] [place], [facility] [address] Residential Sales Representative: Khadar Tang MD Hematocrit (Bld) [Volume fraction] 27.1 % Low 40.7-50.3 [facility] Comment on above: Performed By: #### T ROPI #### [facility] [address] [place] [facility] [address] Residential Sales Representative: Khadar Tang MD Hemoglobin (Bld) [Mass/Vol] 8.7 g/dL Low 13.0-17.0 [facility] Comment on above: Performed By: #### T ROPI #### [address] [place], [facility] [address] Residential Sales Representative: Khadar Tang MD Immature granulocytes/100 WBC (Bld) 1 % High 0 [facility] Comment on above: Performed By: #### T ROPI #### [address] [place], [facility] [address] Residential Sales Representative: Khadar Tang MD Lymphocytes (Bld) [#/Vol] 1.69 10*3/uL Normal 1.10-3.70 [facility] Comment on above: Performed By: #### T ROPI #### [address] [place]árez [facility] Residential Sales Representative: Khadar Tang MD Lymphocytes/100 WBC (Bld) 14 % Low 24-43 [facility] Comment on above: Performed By: #### T ROPI #### [address] [place], [facility] [address] Residential Sales Representative: Khadar Tang MD MCH (RBC) [Entitic mass] 25.3 pg Normal 25.2-33.5 [facility] Comment on above: Performed By: #### T ROPI #### [facility] [address] [place] [address] Dr. Suárez [facility] Residential Sales Representative: Khadar Tang MD MCHC (RBC) [Mass/Vol] 32.1 g/dL Normal 28.4-34.8 [facility] Comment on above: Performed By: #### T ROPI #### [facility] [address] [place], [place] [id number] Residential Sales Representative: Khadar Tang MD MCV (RBC) [Entitic vol] 78.8 fL Low 82.6-102.9 [facility] Comment on above: Performed By: #### T ROPI #### [facility] [address] [place], [place] [id number] Residential Sales Representative: Khadar Tang MD Monocytes (Bld) [#/Vol] 0.82 10*3/uL Normal 0.10-1.20 [facility] Comment on above: Performed By: #### T ROPI #### [address] [place], [place] 824[address]83 Residential Sales Representative: Khadar Tang MD Monocytes/100 WBC (Bld) 7 % Normal 3-12 [facility] Comment on above: Performed By: #### T ROPI #### [address] [place], [place] [address]0083 Residential Sales Representative: Khadar Tang MD Neutrophil (Seg) 71 % High 36-65 [facility] Comment on above: Performed By: #### T ROPI #### [facility] [address] [place] [address] Dr. [place], [place] [id number] Residential Sales Representative: Khadar Tang MD NRBC Automated 0.0 per 100 WBC Normal 0.0 [facility] Comment on above: Performed By: #### T ROPI #### [facility] [address] [place] [address] Dr. [place], [place] [id number] Residential Sales Representative: Khadar Tang MD Platelet mean volume (Bld) [Entitic vol] 9.4 fL Normal 8.1-13.5 [facility] Comment on above: Performed By: #### T ROPI #### [facility] [address] [place], [place] [address]83 Residential Sales Representative: Khadar Tang MD Platelets (Bld) [#/Vol] 345 10*3/uL Normal 138-453 [facility] Comment on above: Performed By: #### T ROPI #### [facility] [address] [place], [place] [id number] Residential Sales Representative: Khadar Tang MD RBC (Bld) [#/Vol] 3.44 10*6/uL Low 4.21-5.77 [facility] Comment on above: Performed By: #### T ROPI #### [facility] [address] [place], [place] [address]83 Residential Sales Representative: Khadar Tang MD WBC (Bld) [#/Vol] 12.5 10*3/uL High 3.5-11.3 [facility] Comment on above: Performed By: #### T ROPI #### [facility] [address] [place] [address] Residential Sales Representative: Khadar Tang MD [facility] Albumin [Mass/Vol] 3.2 g/dL Low 3.5 - 5.2 g/dL [facility] Albumin/Globulin [Mass ratio] 0.7 {ratio} Low 1.0 - 2.5 [facility] ALP [Catalytic activity/Vol] 101 U/L 40 - 129 U/L [facility] ALT [Catalytic activity/Vol] 8 U/L 5 - 41 U/L [facility] Anion gap [Moles/Vol] 11 mmol/L 9 - 17 mmol/L [facility] AST [Catalytic activity/Vol] 13 U/L NINF - 40 U/L [facility] Bilirubin [Mass/Vol] mg/dL Low 0.3 - 1 .2 mg/dL [facility] Calcium [Mass/Vol] 9.1 mg/dL 8.6 - 10. 4 mg/dL [facility] Chloride [Moles/Vol] 110 mmol/L High 98 - 10 7 mmol/L [facility] CO2 [Moles/Vol] 16 mmol/L Low 20 - 31 mmol/L [facility] Creatinine [Mass/Vol] 1.93 mg/dL High 0.70 - 1.20 mg/dL [facility] GFR/1.73 sq M.predicted MDRD (S/P/Bld) [Vol rate/Area] 39 mL/min/{1.73_m2} Low - PINF [facility] Comment on above: These [...] 148 mg/dL High 70 - 99 mg/dL [facility] Interpretation and review of laboratory results Abnormal [facility] Potassium [Moles/Vol] 6.3 mmol/L Critically high 3.7 - 5.3 mmol/L [facility] Protein [Mass/Vol] 8.1 g/dL 6.4 - 8.3 g/dL [facility] Sodium [Moles/Vol] 137 mmol/L 135 - 144 mmol/L [facility] Urea nitrogen [Mass/Vol] 49 mg/dL High 8 - 23 mg/dL [facility] Urea nitrogen/Creatinine (Bld) [Mass ratio] 25 High 9 - 20 [facility] Comp Metabolic Profon 2022 Bilirubin [Mass/Vol] mg/dL Low 0.3-1.2 [facility] Comment on above: Performed By: #### C DP, MG, CP #### [facility] [address] [place] [address] Residential Sales Representative: Khadar Tang MD Potassium [Moles/Vol] 6.3 mmol/L Critically high 3.7-5.3 [facility] Comment on above: Performed By: #### C DP, MG, CP #### [facility] [address] [place], [place] [id number] Residential Sales Representative: Khadar Tang MD Albumin [Mass/Vol] 3.2 g/dL Low 3.5-5.2 [facility] Comment on above: Performed By: #### C DP, MG, CP #### [facility] [address] [place] [address] Residential Sales Representative: Khadar Tang MD Albumin/Glob Ratio 0.7 Low 1.0-2.5 [facility] Comment on above: Performed By: #### C DP, MG, CP #### [address] [place], [place] [phone] Residential Sales Representative: Khadar Tang MD Alkaline Phos 101 U/L Normal 40-129 [facility] Comment on above: Performed By: #### C DP, MG, CP #### [address] [place], [place] [address]83 Residential Sales Representative: Khadar Tang MD ALT [Catalytic activity/Vol] 8 U/L Normal 5-41 [facility] Comment on above: Performed By: #### C DP, MG, CP #### [address] [place], [place] 0190583 Residential Sales Representative: Khadar Tang MD Anion gap [Moles/Vol] 11 mmol/L Normal 9-17 [facility] Comment on above: Performed By: #### C DP, MG, CP #### [address] [place], [place] [address]01083 Residential Sales Representative: Khadar Tang MD AST [Catalytic activity/Vol] 13 U/L Normal <40 [facility] Comment on above: Performed By: #### C DP, MG, CP #### [address] [place] [address] Residential Sales Representative: Khadar Tang MD BUN/CRE Ratio 25 High 9-20 [facility] Comment on above: Performed By: #### C DP, MG, CP #### [facility] [address] [place], [place] [id number] Residential Sales Representative: Khadar Tang MD Calcium [Mass/Vol] 9.1 mg/dL Normal 8.6-10.4 [facility] Comment on above: Performed By: #### C DP, MG, CP #### [facility] [address] [place] [address] Residential Sales Representative: Khadar Tang MD Chloride [Moles/Vol] 110 mmol/L High 98-107 [facility] Comment on above: Performed By: #### C DP, MG, CP #### [facility] [address] [place] [address] Residential Sales Representative: Khadar Tang MD CO2 [Moles/Vol] 16 mmol/L Low 20-31 [facility] Comment on above: Performed By: #### C DP, MG, CP #### [facility] [address] [place] [address] Residential Sales Representative: Khadar Tang MD Creatinine [Mass/Vol] 1.93 mg/dL High 0.70-1.20 [facility] Comment on above: Performed By: #### C DP, MG, CP #### [facility] [address] [place] [address] Residential Sales Representative: Khadar Tang MD GFR/1.73 sq M.predicted among non-blacks MDRD (S/P/Bld) [Vol rate/Area] 39 mL/min/{1.73_m2} Low >60 [facility] Comment on above: Result Comment: These [...] C DP, MG, CP #### [facility] [address] [place] [address] [place] [address] Residential Sales Representative: Khadar Tang MD Glucose [Mass/Vol] 148 mg/dL High 70-99 [facility] Comment on above: Performed By: #### C DP, MG, CP #### [facility] [address] [place] [address] [place] [address] Residential Sales Representative: Khadar Tang MD Protein [Mass/Vol] 8.1 g/dL Normal 6.4-8.3 [facility] Comment on above: Performed By: #### C DP, MG, CP #### [facility] [address] [place] [address] [place] [address] Residential Sales Representative: Khadar Tang MD Sodium [Moles/Vol] 137 mmol/L Normal 135-144 [facility] Comment on above: Performed By: #### C DP, MG, CP #### [address] [place] [address] Residential Sales Representative: Khadar Tang MD Urea nitrogen [Mass/Vol] 49 mg/dL High 8-23 [facility] Comment on above: Performed By: #### C DP, MG, CP #### [facility] [address] [place] [address] [place] [address] Residential Sales Representative: Khadar Tang MD EKG 12 LeadOrdered By: Michelle de la rosa on 06-22-2022 Atrial Rate 58 BPM [facility] [employer] [facility] [employer] Work Phone: P Moore 66 degrees [facility] [employer] Phone: P-R Interval 148 ms [facility] [employer] Phone: Q-T Interval 394 ms [facility] Work Phone: QRS Duration 94 ms [employer] Work Phone: QTc Calculation (Bazett) 386 ms [employer] Work Phone: R Moore 64 degrees [employer] Work Phone: T Moore -8 degrees [employer] Work Phone: Ventricular Rate 58 BPM [facility] [employer] [facility] [employer] Work Phone: [employer] Work Phone: EKG 12 Leadon 06-22-2022 Sinus bradycardia Inferior infarct , age undetermined Possible Anterolateral infarct , age undetermined Abnormal ECG When compared with ECG of 24-APR-2015 18:25, Vent. rate has decreased BY 39 BPM Borderline criteria for Anterolateral infarct are now Present T wave inversion now evident in Inferior leads QT has shortened Confirmed by Michelle Noe MD ([id number]) on 06/22/2022 10:09:31 PM [facility] Michelle Noe MD [...] Noe MD ([id number]) on 06/22/2022 10:09:31 PM [employer] Work Phone: Magnesiumon 06-22-2022 Magnesium [Mass/Vol] 2.0 mg/dL Normal 1.6-2.6 [facility] Comment on above: Performed By: #### C ZANDER MG, CP #### [facility] [address] [place] [address] Residential Sales Representative: Khadar Tang MD Magnesium [Mass/Vol] 2.0 mg/dL 1.6 - 2 .6 mg/dL [facility] CT PELVIS WO CONon 2 CT PELVIS [...] JESUSITA PAPPAS Date: 2022-03-14 09:50 Normal [facility] GLYCOHEMOGLOBIN A1Con 2021 ADA RECOMMENDATION ADA THERAPEUTIC TARG ET 6.0 - 7.0 ACTION SUGGESTED > 7.0 Normal [facility] Comment on above: Performed By: #### A 1C #### [facility] [address] [place], [place] [address] Dr. Juan Smith Glucose [Mass/Vol] 180 mg/dL Normal [facility] Comment on above: Performed By: #### A 1C #### [facility] [address] [place], [place] [address] Dr. Juan Smith HbA1c (Bld) [Mass fraction] 7.9 % Critically high <=6.0 [facility] Comment on above: Performed By: #### A 1C #### [facility] [address] [place], [place] [address] Dr. Juan Smith Cult,Aerobe/Anaerobeon 04-15 Neutrophils Specimen Description .TISSUE RIGHT MEDIAL HEEL POST IRRIGATIONSpecial Requests NOT REPORTEDDirect Exam NO NEUTROPHILS SEEN NO BACTERIA SEEN Culture METHICILLIN RESISTANT STAPHYLOCOCCUS AUREUS SCANT GROWTH For susceptibility, refer to previous culture. STREPTOCOCCI, BETA HEM[employer] C SCANT GROWTH DIPHTHEROIDS SCANT GROWTH NO ANAEROBIC ORGANISMS ISOLATED AT 5 DAYS Report Status FINAL 04/15/2017 [facility] Comment on above: Performed By: #### A ANC ####[address] [address] Neutrophils Specimen Description .TISSUE RIGHT ANKLE PRE IRRIGATIONSpecial Requests NOT REPORTEDDirect Exam NO NEUTROPHILS SEEN RARE GRAM POSITIVE COCCI IN PAIRS Culture METHICILLIN RESISTANT STAPHYLOCOCCUS AUREUS LIGHT GROWTH For susceptibility, refer to previous culture. STREPTOCOCCI, [employer] H[employer] C SCANT GROWTH NO ANAEROBIC ORGANISMS ISOLATED AT 5 DAYS Report Status FINAL 04/15/2017 [facility] Comment on above: Performed By: #### A ANC ####[facility] [place] [address] Neutrophils Specimen Description .TISSUE RIGHT MEDIAL HEEL PRE IRRIGATIONSpecial Requests NOT REPORTEDDirect Exam NO NEUTROPHILS SEEN NO BACTERIA SEEN Culture STREPTOCOCCI, BETA HEMOLYTIC GROUP C LIGHT GROWTH METHICILLIN RESISTANT STAPHYLOCOCCUS AUREUS SCANT GROWTH For susceptibility, refer to previous culture. DIPHTHEROIDS LIGHT GROWTH NO ANAEROBIC ORGANISMS ISOLATED AT 5 DAYS Report Status FINAL 04/15/2017 [facility] Comment on above: Performed By: #### A ANC ####[address] [address] Basic Metabolic Profon 04-13 (cont.) Normal [facility] Comment on above: Result Comment: Aver age GFR for 50-59 years old: 93 mL/min/1.73sq mChronic Kidney Disease: <60 mL/min/1.73sq mKidney failure: <15 mL/min/1.73sq meGFR calculated using average adult body mass. Additional eGFR calculator available at:http://www.[place]/multiple_crcl_2012.htm[address] [address] Performed By: #### C DP, CMPX, CRP, SED, GLYHGB ####[address] [address] Anion gap 11 mmol/L Normal 9-17 [facility] Comment on above: Performed By: #### C DP, CMPX, CRP, SED, GLYHGB ####[address] [address] Calcium 8.7 mg/dL Normal 8.6-10.4 [facility] Comment on above: Performed By: #### C DP, CMPX, CRP, SED, GLYHGB ####[address] [address] Chloride 106 mmol/L Normal 98-107 [facility] Comment on above: Performed By: #### C DP, CMPX, CRP, SED, GLYHGB ####[address] [address] CO2 22 mmol/L Normal 20-31 [facility] Comment on above: Performed By: #### C DP, CMPX, CRP, SED, GLYHGB ####[address] [address] Creatinine 1.04 mg/dL Normal 0.70-1.20 [facility] Comment on above: Performed By: #### C DP, CMPX, CRP, SED, GLYHGB ####[address] [address] eGFR (non-black) mL/min/{1.73_m2} Normal >60 [facility] Comment on above: Performed By: #### C DP, CMPX, CRP, SED, GLYHGB ####[address] [address] Glucose mass conc 174 mg/dL High 70-99 [facility] Comment on above: Performed By: #### C DP, CMPX, CRP, SED, GLYHGB ####[address] [address] Potassium molar conc 4.1 mmol/L Normal 3.7-5.3 [facility] Comment on above: Performed By: #### C DP, CMPX, CRP, SED, GLYHGB ####[address] [address] Sodium 139 mmol/L Normal 135-144 [facility] Comment on above: Performed By: #### C DP, CMPX, CRP, SED, GLYHGB ####[address] [address] Urea nitrogen 16 mg/dL Normal 6-20 [facility] Comment on above: Performed By: #### C DP, CMPX, CRP, SED, GLYHGB ####[address] [address] BUN/CRE Ratio NOT REPORTED Normal 9-20 [facility] Comment on above: Performed By: #### C DP, CMPX, CRP, SED, GLYHGB ####[address] [address] Staging: NOT REPORTED Normal [facility] Comment on above: Performed By: #### C DP, CMPX, CRP, SED, GLYHGB ####[address] [address] CBC with Diffon 04-13-2017 Abs. Basophil <0.03 Normal 0.00-0.20 [facility] Comment on above: Performed By: #### C DP, CMPX, CRP, SED, GLYHGB ####[place] [address] Abs.Neutrophil (Seg) 4.97 k/uL Normal 1.50-8.10 [facility] Comment on above: Performed By: #### C DP, CMPX, CRP, SED, GLYHGB ####[place] [address] Basophils/100 WBC Auto (Bld) 0 % Normal 0-2 [facility] Comment on above: Performed By: #### C DP, CMPX, CRP, SED, GLYHGB ####[place] [address] Eosinophils 0.24 10*3/uL Normal 0.00-0.44 [facility] Comment on above: Performed By: #### C DP, CMPX, CRP, SED, GLYHGB ####[place] [address] Eosinophils/100 leukocytes 3 % Normal 1-4 [facility] Comment on above: Performed By: #### C DP, CMPX, CRP, SED, GLYHGB ####[address] [address] Erythrocyte distribution width Auto Ratio (RBC) 14.8 % High 11.8-14.4 [facility] Comment on above: Performed By: #### C DP, CMPX, CRP, SED, GLYHGB ####[address] [address] Erythrocyte morphology ANISOCYTOSIS PRESENT Normal [facility] Comment on above: Result Comment: [id number] [place] [address] Performed By: #### C DP, CMPX, CRP, SED, GLYHGB ####[address] [address] Erythrocytes (RBC) 0.0 per 100 WBC Normal 0.0 M [facility] Comment on above: Performed By: #### C DP, CMPX, CRP, SED, GLYHGB ####[address] [address] Erythrocytes (RBC) 3.42 10*6/uL Low 4.21-5.77 [facility] Comment on above: Performed By: #### C DP, CMPX, CRP, SED, GLYHGB ####[address] [address] Granulocytes/100 WBC (Bld) 0.19 k/uL Normal 0.00-0.30 [facility] Comment on above: Performed By: #### C DP, CMPX, CRP, SED, GLYHGB ####[address] [address] Hematocrit (HCT) 29.4 % Low 40.7-50.3 [facility] Comment on above: Performed By: #### C DP, CMPX, CRP, SED, GLYHGB ####[address] [address] Hemoglobin mass conc (Bld) 8.8 g/dL Low 13.0-17.0 [facility] Comment on above: Performed By: #### C DP, CMPX, CRP, SED, GLYHGB ####[address] [address] Immature granulocytes #/vol (Bld) 2 % High 0 [facility] Comment on above: Performed By: #### C DP, CMPX, CRP, SED, GLYHGB ####[place] [address] Lymphocytes 2.00 10*3/uL Normal 1.10-3.70 [facility] Comment on above: Performed By: #### C DP, CMPX, CRP, SED, GLYHGB ####[place] [address] Lymphocytes/100 leukocytes 25 % Normal 24-43 [facility] Comment on above: Performed By: #### C DP, CMPX, CRP, SED, GLYHGB ####[place] [address] MCH 25.7 pg Normal 25.2-33.5 [facility] Comment on above: Performed By: #### C DP, CMPX, CRP, SED, GLYHGB ####[place] [address] MCHC mass conc (RBC) 29.9 g/dL Normal 28.4-34.8 [facility] Comment on above: Performed By: #### C DP, CMPX, CRP, SED, GLYHGB ####[place] [address] MCV 86.0 fL Normal 82.6-102.9 [facility] Comment on above: Performed By: #### C DP, CMPX, CRP, SED, GLYHGB ####[address] [address] Monocytes 0.53 10*3/uL Normal 0.10-1.20 [facility] Comment on above: Performed By: #### C DP, CMPX, CRP, SED, GLYHGB ####[address] [address] Monocytes/100 leukocytes 7 % Normal 3-12 [facility] Comment on above: Performed By: #### C DP, CMPX, CRP, SED, GLYHGB ####[address] [address] Neutrophil (Seg) 63 % Normal 36-65 [facility] Comment on above: Performed By: #### C DP, CMPX, CRP, SED, GLYHGB ####[address] [address] Platelet mean volume (PMV) 9.9 fL Normal 8.1-13.5 [facility] Comment on above: Performed By: #### C DP, CMPX, CRP, SED, GLYHGB ####[address] [address] Platelets 257 10*3/uL Normal 138-453 [facility] Comment on above: Performed By: #### C DP, CMPX, CRP, SED, GLYHGB ####[address] [address] WBC (Leukocytes) 8.0 10*3/uL Normal 3.5-11.3 [facility] Comment on above: Performed By: #### C DP, CMPX, CRP, SED, GLYHGB ####[address] [address] Auto Diff Performed NOT REPORTED Normal [facility] Comment on above: Performed By: #### C DP, CMPX, CRP, SED, GLYHGB ####[address] [address] Platelets NOT REPORTED Normal [facility] Comment on above: Performed By: #### C DP, CMPX, CRP, SED, GLYHGB ####[address] [place] [address] WBC Morphology NOT REPORTED Normal [facility] Comment on above: Performed By: #### C DP, CMPX, CRP, SED, GLYHGB ####[id number] [place], [place] [id number] Discharge Summaryon 04-13-19 18 HIM IP Note OR Parts Back Counter Man Normal [facility] Plan of Careon 04-13-2017 HIM IP Note OR Parts Back Counter Man Normal [facility] HIM IP Note OR Parts Back Counter Man Normal [facility] Progress Noteon 04-13-2017 HIM IP Note OR Parts Back Counter Man Normal [facility] HIM IP Note OR Parts Back Counter Man Normal [facility] HIM IP Note OR Parts Back Counter Man Normal [facility] HIM IP Note OR Parts Back Counter Man Normal [facility] HIM IP Note OR Parts Back Counter Man Normal [facility] HIM IP Note OR Parts Back Counter Man Normal [facility] Basic Metabolic Profon 04-12 (cont.) Normal [facility] Comment on above: Result Comment: Aver age GFR for 50-59 years old: 93 mL/min/1.73sq mChronic Kidney Disease: <60 mL/min/1.73sq mKidney failure: <15 mL/min/1.73sq meGFR calculated using average adult body mass. Additional eGFR calculator available at:http://www.hipages.com.au.Flaviar/multiple_crcl_2012.htmOhio[facility] [address] [place] [address] Performed By: #### C DP, CMPX, CRP, SED, GLYHGB ####[facility] [place] [address] Anion gap 8 mmol/L Low 9-17 [facility] Comment on above: Performed By: #### C DP, CMPX, CRP, SED, GLYHGB ####[facility] [place], [place] [id number] Calcium 8.8 mg/dL Normal 8.6-10.4 [facility] Comment on above: Performed By: #### C DP, CMPX, CRP, SED, GLYHGB ####[address] [address] Chloride 107 mmol/L Normal 98-107 [facility] Comment on above: Performed By: #### C DP, CMPX, CRP, SED, GLYHGB ####[address] [address] CO2 23 mmol/L Normal 20-31 [facility] Comment on above: Performed By: #### C DP, CMPX, CRP, SED, GLYHGB ####[address] [address] Creatinine 1.01 mg/dL Normal 0.70-1.20 [facility] Comment on above: Performed By: #### C DP, CMPX, CRP, SED, GLYHGB ####[address] [address] eGFR (non-black) mL/min/{1.73_m2} Normal >60 [facility] Comment on above: Performed By: #### C DP, CMPX, CRP, SED, GLYHGB ####[address] [address] Glucose mass conc 172 mg/dL High 70-99 [facility] Comment on above: Performed By: #### C DP, CMPX, CRP, SED, GLYHGB ####[address] [place] [address] Potassium molar conc 3.9 mmol/L Normal 3.7-5.3 [facility] Comment on above: Performed By: #### C DP, CMPX, CRP, SED, GLYHGB ####[address] [address] Sodium 138 mmol/L Normal 135-144 [facility] Comment on above: Performed By: #### C DP, CMPX, CRP, SED, GLYHGB ####[address] [address] Urea nitrogen 15 mg/dL Normal 6-20 [facility] Comment on above: Performed By: #### C DP, CMPX, CRP, SED, GLYHGB ####[address] [address] BUN/CRE Ratio NOT REPORTED Normal 9-20 [facility] Comment on above: Performed By: #### C DP, CMPX, CRP, SED, GLYHGB ####[address] [address] Staging: NOT REPORTED Normal [facility] Comment on above: Performed By: #### C DP, CMPX, CRP, SED, GLYHGB ####[address] [address] CBC with Diffon 04-12-2017 Abs. Basophil <0.03 Normal 0.00-0.20 [facility] Comment on above: Performed By: #### C DP, CMPX, CRP, SED, GLYHGB ####[address] [address] Abs.Neutrophil (Seg) 4.31 k/uL Normal 1.50-8.10 [facility] Comment on above: Performed By: #### C DP, CMPX, CRP, SED, GLYHGB ####[address] [address] Basophils/100 WBC Auto (Bld) 0 % Normal 0-2 [facility] Comment on above: Performed By: #### C DP, CMPX, CRP, SED, GLYHGB ####[address] [address] Eosinophils 0.21 10*3/uL Normal 0.00-0.44 [facility] Comment on above: Performed By: #### C DP, CMPX, CRP, SED, GLYHGB ####[address] [address] Eosinophils/100 leukocytes 3 % Normal 1-4 [facility] Comment on above: Performed By: #### C DP, CMPX, CRP, SED, GLYHGB ####[address] [address] Erythrocyte distribution width Auto Ratio (RBC) 14.7 % High 11.8-14.4 [facility] Comment on above: Performed By: #### C DP, CMPX, CRP, SED, GLYHGB ####[address] [address] Erythrocyte morphology ANISOCYTOSIS PRESENT Normal [facility] Comment on above: Result Comment: [id number] [place] [address] Performed By: #### C DP, CMPX, CRP, SED, GLYHGB ####[address] [address] Erythrocytes (RBC) 3.45 10*6/uL Low 4.21-5.77 [facility] Comment on above: Performed By: #### C DP, CMPX, CRP, SED, GLYHGB ####[address] [address] Granulocytes/100 WBC (Bld) 0.22 k/uL Normal 0.00-0.30 [facility] Comment on above: Performed By: #### C DP, CMPX, CRP, SED, GLYHGB ####[address] [address] Hematocrit (HCT) 28.9 % Low 40.7-50.3 [facility] Comment on above: Performed By: #### C DP, CMPX, CRP, SED, GLYHGB ####[address] [address] Hemoglobin mass conc (Bld) 8.9 g/dL Low 13.0-17.0 [facility] Comment on above: Performed By: #### C DP, CMPX, CRP, SED, GLYHGB ####[address] [address] Immature granulocytes #/vol (Bld) 3 % High 0 [facility] Comment on above: Performed By: #### C DP, CMPX, CRP, SED, GLYHGB ####[address] [address] Lymphocytes 1.83 10*3/uL Normal 1.10-3.70 [facility] Comment on above: Performed By: #### C DP, CMPX, CRP, SED, GLYHGB ####[address] [address] Lymphocytes/100 leukocytes 26 % Normal 24-43 [facility] Comment on above: Performed By: #### C DP, CMPX, CRP, SED, GLYHGB ####[address] [address] MCH 25.8 pg Normal 25.2-33.5 [facility] Comment on above: Performed By: #### C DP, CMPX, CRP, SED, GLYHGB ####[address] [address] MCHC mass conc (RBC) 30.8 g/dL Normal 28.4-34.8 [facility] Comment on above: Performed By: #### C DP, CMPX, CRP, SED, GLYHGB ####[address] [address] MCV 83.8 fL Normal 82.6-102.9 [facility] Comment on above: Performed By: #### C DP, CMPX, CRP, SED, GLYHGB ####[address] [place] [address] Monocytes 0.58 10*3/uL Normal 0.10-1.20 [facility] Comment on above: Performed By: #### C DP, CMPX, CRP, SED, GLYHGB ####[address] [address] Monocytes/100 leukocytes 8 % Normal 3-12 [facility] Comment on above: Performed By: #### C DP, CMPX, CRP, SED, GLYHGB ####[address] [address] Neutrophil (Seg) 60 % Normal 36-65 [facility] Comment on above: Performed By: #### C DP, CMPX, CRP, SED, GLYHGB ####[address] [place] [address] Platelet mean volume (PMV) 9.3 fL Normal 8.1-13.5 [facility] Comment on above: Performed By: #### C DP, CMPX, CRP, SED, GLYHGB ####[address] [address] Platelets 231 10*3/uL Normal 138-453 [facility] Comment on above: Performed By: #### C DP, CMPX, CRP, SED, GLYHGB ####[address] [address] WBC (Leukocytes) 7.2 10*3/uL Normal 3.5-11.3 [facility] Comment on above: Performed By: #### C DP, CMPX, CRP, SED, GLYHGB ####[address] [place], [place] [id number] Auto Diff Performed NOT REPORTED Normal [facility] Comment on above: Performed By: #### C DP, CMPX, CRP, SED, GLYHGB ####[address] [place], [place] [phone] Platelets NOT REPORTED Normal [facility] Comment on above: Performed By: #### C DP, CMPX, CRP, SED, GLYHGB ####[address] [place], [place] [id number] WBC Morphology NOT REPORTED Normal [facility] Comment on above: Performed By: #### C DP, CMPX, CRP, SED, GLYHGB ####[facility] [address] [place] [address] [id number] Cult,Aerobe/Anaerobeon 04-12 Neutrophils Specimen Description .TISSUE RIGHT [...] NOT REPORTEDTrimethoprim/Sulfa <=10 SUSCEPTIBLEVancomycin 1 SUSCEPTIBLE Normal [facility] Comment on above: Performed By: #### A ANC ####[address] [place], [place] [id number] Plan of Careon 04-12-2017 HIM IP Note OR Parts Back Counter Man Normal [facility] HIM IP Note OR Parts Back Counter Man Normal [facility] HIM IP Note OR Parts Back Counter Man Normal [facility] HIM IP Note OR Parts Back Counter Man Normal [facility] HIM IP Note OR Parts Back Counter Man Normal [facility] Progress Noteon 04-12-2017 HIM IP Note OR Parts Back Counter Man Normal [facility] HIM IP Note OR Parts Back Counter Man Normal [facility] HIM IP Note OR Parts Back Counter Man Normal [facility] HIM IP Note OR Parts Back Counter Man Normal [facility] HIM IP Note OR Parts Back Counter Man Normal [facility] HIM IP Note OR Parts Back Counter Man Normal [facility] Basic Metabolic Profon 04-11 (cont.) Normal [facility] Comment on above: Result Comment: Aver age GFR for 50-59 years old: 93 mL/min/1.73sq mChronic Kidney Disease: <60 mL/min/1.73sq mKidney failure: <15 mL/min/1.73sq meGFR calculated using average adult body mass. Additional eGFR calculator available at:[email or web address] [address] [place] [address] Performed By: #### C DP, CMPX, CRP, SED, GLYHGB ####[facility] [place] [address] Anion gap 14 mmol/L Normal 9-17 [facility] Comment on above: Performed By: #### C DP, CMPX, CRP, SED, GLYHGB ####[facility] [address] [place] [address] Calcium 8.2 mg/dL Low 8.6-10.4 [facility] Comment on above: Performed By: #### C DP, CMPX, CRP, SED, GLYHGB ####[address] [place] [address] Chloride 101 mmol/L Normal 98-107 [facility] Comment on above: Performed By: #### C DP, CMPX, CRP, SED, GLYHGB ####[facility] [place] [address] CO2 21 mmol/L Normal 20-31 [facility] Comment on above: Performed By: #### C DP, CMPX, CRP, SED, GLYHGB ####[facility] [place] [address] Creatinine 1.16 mg/dL Normal 0.70-1.20 [facility] Comment on above: Performed By: #### C DP, CMPX, CRP, SED, GLYHGB ####[address] [place] [address] eGFR (non-black) mL/min/{1.73_m2} Normal >60 [facility] Comment on above: Performed By: #### C DP, CMPX, CRP, SED, GLYHGB ####[address] [address] Glucose mass conc 153 mg/dL High 70-99 [facility] Comment on above: Performed By: #### C DP, CMPX, CRP, SED, GLYHGB ####[facility] [place] [address] Potassium molar conc 4.0 mmol/L Normal 3.7-5.3 [facility] Comment on above: Performed By: #### C DP, CMPX, CRP, SED, GLYHGB ####[facility] [address] [place] [address] Sodium 136 mmol/L Normal 135-144 [facility] Comment on above: Performed By: #### C DP, CMPX, CRP, SED, GLYHGB ####[facility] [place] [address] Urea nitrogen 18 mg/dL Normal 6-20 [facility] Comment on above: Performed By: #### C DP, CMPX, CRP, SED, GLYHGB ####[address] [address] BUN/CRE Ratio NOT REPORTED Normal - [facility] Comment on above: Performed By: #### C DP, CMPX, CRP, SED, GLYHGB ####[address] [address] Staging: NOT REPORTED Normal [facility] Comment on above: Performed By: #### C DP, CMPX, CRP, SED, GLYHGB ####[address] [address] C-Reactive Proteinon 018 C reactive protein (CRP) 55.5 mg/L High 0.0-5.0 [facility] Comment on above: Result Comment: [address] [address] Performed By: #### C DP, CMPX, CRP, SED, GLYHGB ####[address] [address] CBC with Diffon 04-11-2017 Abs. Basophil <0.03 Normal 0.00-0.20 [facility] Comment on above: Performed By: #### C DP, CMPX, CRP, SED, GLYHGB ####[address] [address] Abs.Neutrophil (Seg) 5.04 k/uL Normal 1.50-8.10 [facility] Comment on above: Performed By: #### C DP, CMPX, CRP, SED, GLYHGB ####[address] [address] Basophils/100 WBC Auto (Bld) 0 % Normal 0-2 [facility] Comment on above: Performed By: #### C DP, CMPX, CRP, SED, GLYHGB ####[address] [address] Eosinophils 0.24 10*3/uL Normal 0.00-0.44 [facility] Comment on above: Performed By: #### C DP, CMPX, CRP, SED, GLYHGB ####[address] [address] Eosinophils/100 leukocytes 3 % Normal 1-4 [facility] Comment on above: Performed By: #### C DP, CMPX, CRP, SED, GLYHGB ####[address] [address] Erythrocyte distribution width Auto Ratio (RBC) 14.8 % High 11.8-14.4 [facility] Comment on above: Performed By: #### C DP, CMPX, CRP, SED, GLYHGB ####[address] [address] Erythrocyte morphology ANISOCYTOSIS PRESENT Normal [facility] Comment on above: Result Comment: [id number] [place] [address] Performed By: #### C DP, CMPX, CRP, SED, GLYHGB ####[address] [address] Erythrocytes (RBC) 3.36 10*6/uL Low 4.21-5.77 [facility] Comment on above: Performed By: #### C DP, CMPX, CRP, SED, GLYHGB ####[address] [address] Granulocytes/100 WBC (Bld) 0.09 k/uL Normal 0.00-0.30 [facility] Comment on above: Performed By: #### C DP, CMPX, CRP, SED, GLYHGB ####[address] [address] Hematocrit (HCT) 28.8 % Low 40.7-50.3 [facility] Comment on above: Performed By: #### C DP, CMPX, CRP, SED, GLYHGB ####[address] [address] Hemoglobin mass conc (Bld) 8.8 g/dL Low 13.0-17.0 [facility] Comment on above: Performed By: #### C DP, CMPX, CRP, SED, GLYHGB ####[address] [address] Immature granulocytes #/vol (Bld) 1 % High 0 [facility] Comment on above: Performed By: #### C DP, CMPX, CRP, SED, GLYHGB ####[address] [address] Lymphocytes 1.73 10*3/uL Normal 1.10-3.70 [facility] Comment on above: Performed By: #### C DP, CMPX, CRP, SED, GLYHGB ####[address] [address] Lymphocytes/100 leukocytes 23 % Low 24-43 [facility] Comment on above: Performed By: #### C DP, CMPX, CRP, SED, GLYHGB ####[address] [address] MCH 26.2 pg Normal 25.2-33.5 [facility] Comment on above: Performed By: #### C DP, CMPX, CRP, SED, GLYHGB ####[address] [address] MCHC mass conc (RBC) 30.6 g/dL Normal 28.4-34.8 [facility] Comment on above: Performed By: #### C DP, CMPX, CRP, SED, GLYHGB ####[address] [address] MCV 85.7 fL Normal 82.6-102.9 [facility] Comment on above: Performed By: #### C DP, CMPX, CRP, SED, GLYHGB ####[address] [address] Monocytes 0.56 10*3/uL Normal 0.10-1.20 [facility] Comment on above: Performed By: #### C DP, CMPX, CRP, SED, GLYHGB ####[address] [address] Monocytes/100 leukocytes 7 % Normal 3-12 [facility] Comment on above: Performed By: #### C DP, CMPX, CRP, SED, GLYHGB ####[address] [address] Neutrophil (Seg) 66 % High 36-65 [facility] Comment on above: Performed By: #### C DP, CMPX, CRP, SED, GLYHGB ####[address] [address] Platelet mean volume (PMV) 9.9 fL Normal 8.1-13.5 [facility] Comment on above: Performed By: #### C DP, CMPX, CRP, SED, GLYHGB ####[address] [address] Platelets 264 10*3/uL Normal 138-453 [facility] Comment on above: Performed By: #### C DP, CMPX, CRP, SED, GLYHGB ####[address] [address] WBC (Leukocytes) 7.7 10*3/uL Normal 3.5-11.3 [facility] Comment on above: Performed By: #### C DP, CMPX, CRP, SED, GLYHGB ####[address] [address] Auto Diff Performed NOT REPORTED Normal [facility] Comment on above: Performed By: #### C DP, CMPX, CRP, SED, GLYHGB ####[address] [address] Platelets NOT REPORTED Normal [facility] Comment on above: Performed By: #### C DP, CMPX, CRP, SED, GLYHGB ####[address] [address] WBC Morphology NOT REPORTED Normal [facility] Comment on above: Performed By: #### C DP, CMPX, CRP, SED, GLYHGB ####[address] [address] Hemoglobin A1Con 04-11-2017 Glucose mass conc 315 mg/dL Normal [facility] Comment on above: Result Comment: The ADA and AACC recommend providing the estimated average glucose result to permit better patient understanding of their HBA1c result.[address] [address] Performed By: #### C DP, CMPX, CRP, SED, GLYHGB ####[address] [address] Hemoglobin A1c/Hemoglobin.total mass fraction (Bld) 12.6 % High 4.0-6.0 [facility] Comment on above: Performed By: #### C DP, CMPX, CRP, SED, GLYHGB ####[address] [address] Plan of Careon 04-11-2017 HIM IP Note OR Parts Back Counter Man Normal [facility] HIM IP Note OR Parts Back Counter Man Normal [facility] HIM IP Note OR Parts Back Counter Man Normal [facility] HIM IP Note OR Parts Back Counter Man Normal [facility] Progress Noteon 04-11-2017 HIM IP Note OR Parts Back Counter Man Normal [facility] HIM IP Note OR Parts Back Counter Man Normal [facility] HIM IP Note OR Parts Back Counter Man Normal [facility] HIM IP Note OR Parts Back Counter Man Normal [facility] Consulton 04-10-2017 HIM IP Note OR Parts Back Counter Man Normal [facility] Cult,Urine,Cathon 04-10-2017 Cult,Urine,Cath Specimen Description .CATHETERIZED URINE Special Requests NOT REPORTED Culture PRESUMPTIVE ID: LEO ALBICANS >[id number] CFU/ML Report Status FINAL 04/10/2017 [facility] Comment on above: Performed By: #### C DP, CMPX, CRP, SED, GLYHGB ####[id number] [place], [place] [id number] Influenza A + B, PCRon 04-10 Influenza A + B, PCR Specimen Descriptio n .NASOPHARYNGEAL SWABSpecial Requests NOT REPORTEDDirect Exam NEGATIVE: Influenza A and B RNA not detected by nucleic acid amplification. The results obtained should be interpreted in conjunction with clinical findings and other laboratory markers. The performance characterisitics of this molecular test were validated by the molecular microbiology department of [facility] [employer]. Report Status FINAL 04/10/2017 [facility] Comment on above: Performed By: #### C DP, CMPX, CRP, SED, GLYHGB ####[id number] [place], [place] [id number] OPERATIVE REPORTon 8 OPERATIVE REPORT [address] [address] OPERATIVE REPORTPATIENT NAME: GANGA STINSON : 1960MED REC NO: [id number] [id number] ADMIT DATE: 04/09/2017PROVIDER: William Foster-JudgeDATE OF PROCEDURE: 04/10/2016SURGEON: William Foster-, DPMASSISTANT: Benito Chacon DPM, PGY-1PREOPERATIVE DIAGNOSES:1. Deep [...] for recovery. The patient has a primary military aircraft designer, Dr. 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 The department of Infectious Disease,Internal Medicine, and specialty medicine services will provide care duringthe inpatient admission. He will return to the care of Dr. Min [place], [place], upon discharge.INDICATIONS FOR OPERATION: This is a [...] He would follow up with his usual military aircraft designer on anoutpatient basis. The departments of Internal Medicine and InfectiousDisease will guide our care in the interim. Cultures should be availablewith sensitivities in approximately 72 hours and consider dischargeplanning then.WILLIAM FOSTER-JUDGED: 04/10/2017 15:31:53 MS/Jerry_SSROR_IJob#: [id number] Doc#: [id number]: Yakov Min [facility] Department of Infectious Disease Internal Medicine Normal [facility] Plan of Careon 04-10-2017 HIM IP Note OR Parts Back Counter Man [facility] HIM IP Note OR Parts Back Counter Man [facility] Progress Noteon 04-10-2017 HIM IP Note OR Parts Back Counter Man Normal [facility] HIM IP Note OR Parts Back Counter Man Normal [facility] XR ANKLE RIGHT STANDARDon XR [...] Bakerigned by:Roberto Carlos Cavazos MD04/09/17inal result Normal [facility] C-Reactive Proteinon 018 C reactive protein (CRP) 114.3 mg/L High 0.0-5.0 [facility] Comment on above: Result Comment: [facility] [address] [place] [id number] Performed By: #### C DP, CMPX, CRP, SED, GLYHGB ####[address] [address] CBC with Diffon 04-09-2017 Abs. Basophil <0.03 Normal 0.00-0.20 [facility] Comment on above: Performed By: #### C DP, CMPX, CRP, SED, GLYHGB ####[facility] [address] [place] [address] Abs.Neutrophil (Seg) 5.95 k/uL Normal 1.50-8.10 [facility] Comment on above: Performed By: #### C DP, CMPX, CRP, SED, GLYHGB ####[address] [address] Basophils/100 WBC Auto (Bld) 0 % Normal 0-2 [facility] Comment on above: Performed By: #### C DP, CMPX, CRP, SED, GLYHGB ####[address] [address] Eosinophils 0.11 10*3/uL Normal 0.00-0.44 [facility] Comment on above: Performed By: #### C DP, CMPX, CRP, SED, GLYHGB ####[address] [address] Eosinophils/100 leukocytes 1 % Normal 1-4 [facility] Comment on above: Performed By: #### C DP, CMPX, CRP, SED, GLYHGB ####[address] [address] Erythrocyte distribution width Auto Ratio (RBC) 15.0 % High 11.8-14.4 [facility] Comment on above: Performed By: #### C DP, CMPX, CRP, SED, GLYHGB ####[address] [address] Erythrocyte morphology ANISOCYTOSIS PRESENT Normal [facility] Comment on above: Result Comment: [id number] [place] [address] Performed By: #### C DP, CMPX, CRP, SED, GLYHGB ####[address] [address] Erythrocytes (RBC) 3.50 10*6/uL Low 4.21-5.77 [facility] Comment on above: Performed By: #### C DP, CMPX, CRP, SED, GLYHGB ####[address] [address] Granulocytes/100 WBC (Bld) 0.09 k/uL Normal 0.00-0.30 [facility] Comment on above: Performed By: #### C DP, CMPX, CRP, SED, GLYHGB ####[address] [address] Hematocrit (HCT) 29.9 % Low 40.7-50.3 [facility] Comment on above: Performed By: #### C DP, CMPX, CRP, SED, GLYHGB ####[address] [address] Hemoglobin mass conc (Bld) 9.0 g/dL Low 13.0-17.0 [facility] Comment on above: Performed By: #### C DP, CMPX, CRP, SED, GLYHGB ####[address] [address] Immature granulocytes #/vol (Bld) 1 % High 0 [facility] Comment on above: Performed By: #### C DP, CMPX, CRP, SED, GLYHGB ####[address] [address] Lymphocytes 1.60 10*3/uL Normal 1.10-3.70 [facility] Comment on above: Performed By: #### C DP, CMPX, CRP, SED, GLYHGB ####[address] [address] Lymphocytes/100 leukocytes 19 % Low 24-43 [facility] Comment on above: Performed By: #### C DP, CMPX, CRP, SED, GLYHGB ####[address] [address] MCH 25.7 pg Normal 25.2-33.5 [facility] Comment on above: Performed By: #### C DP, CMPX, CRP, SED, GLYHGB ####[address] [address] MCHC mass conc (RBC) 30.1 g/dL Normal 28.4-34.8 [facility] Comment on above: Performed By: #### C DP, CMPX, CRP, SED, GLYHGB ####[address] [address] MCV 85.4 fL Normal 82.6-102.9 [facility] Comment on above: Performed By: #### C DP, CMPX, CRP, SED, GLYHGB ####[address] [address] Monocytes 0.53 10*3/uL Normal 0.10-1.20 [facility] Comment on above: Performed By: #### C DP, CMPX, CRP, SED, GLYHGB ####[address] [address] Monocytes/100 leukocytes 6 % Normal 3-12 [facility] Comment on above: Performed By: #### C DP, CMPX, CRP, SED, GLYHGB ####[address] [address] Neutrophil (Seg) 73 % High 36-65 [facility] Comment on above: Performed By: #### C DP, CMPX, CRP, SED, GLYHGB ####[address] [address] Platelet mean volume (PMV) 9.6 fL Normal 8.1-13.5 [facility] Comment on above: Performed By: #### C DP, CMPX, CRP, SED, GLYHGB ####[address] [address] Platelets 224 10*3/uL Normal 138-453 [facility] Comment on above: Performed By: #### C DP, CMPX, CRP, SED, GLYHGB ####[address] [address] WBC (Leukocytes) 8.3 10*3/uL Normal 3.5-11.3 [facility] Comment on above: Performed By: #### C DP, CMPX, CRP, SED, GLYHGB ####[address] [address] Auto Diff Performed NOT REPORTED Normal [facility] Comment on above: Performed By: #### C DP, CMPX, CRP, SED, GLYHGB ####[address] [address] Platelets NOT REPORTED Normal [facility] Comment on above: Performed By: #### C DP, CMPX, CRP, SED, GLYHGB ####[address] [address] WBC Morphology NOT REPORTED Normal [facility] Comment on above: Performed By: #### C DP, CMPX, CRP, SED, GLYHGB ####[address] [address] Comp Metabolic Pr/rfx MGon 0 - (cont.) Normal [facility] Comment on above: Result Comment: Aver age GFR for 50-59 years old: 93 mL/min/1.73sq mChronic Kidney Disease: <60 mL/min/1.73sq mKidney failure: <15 mL/min/1.73sq meGFR calculated using average adult body mass. Additional eGFR calculator available at:http://www.hipages.com.au.com/multiple_crcl_2012.htm[address] [address] Performed By: #### C DP, CMPX, CRP, SED, GLYHGB ####[address] [address] Alanine aminotransferase (ALT) 9 U/L Normal 5-41 [facility] Comment on above: Performed By: #### C DP, CMPX, CRP, SED, GLYHGB ####[address] [address] Albumin 2.8 g/dL Low 3.5-5.2 [facility] Comment on above: Performed By: #### C DP, CMPX, CRP, SED, GLYHGB ####[address] [address] Albumin/Globulin Ratio 0.7 {ratio} Low 1.0-2.5 [facility] Comment on above: Performed By: #### C DP, CMPX, CRP, SED, GLYHGB ####[address] [address] Alkaline Phos 57 U/L Normal 40-129 [facility] Comment on above: Performed By: #### C DP, CMPX, CRP, SED, GLYHGB ####[address] [address] Anion gap 13 mmol/L Normal 9-17 [facility] Comment on above: Performed By: #### C DP, CMPX, CRP, SED, GLYHGB ####[address] [address] Aspartate aminotransferase (AST) 9 U/L Normal <40 [facility] Comment on above: Performed By: #### C DP, CMPX, CRP, SED, GLYHGB ####[address] [address] Bilirubin Ql (U) 0.26 mg/dL Low 0.3-1.2 [facility] Comment on above: Performed By: #### C DP, CMPX, CRP, SED, GLYHGB ####[address] [address] Calcium 8.4 mg/dL Low 8.6-10.4 [facility] Comment on above: Performed By: #### C DP, CMPX, CRP, SED, GLYHGB ####[facility] [place] [address] Chloride 99 mmol/L Normal 98-107 [facility] Comment on above: Performed By: #### C DP, CMPX, CRP, SED, GLYHGB ####[address] [address] CO2 21 mmol/L Normal 20-31 [facility] Comment on above: Performed By: #### C DP, CMPX, CRP, SED, GLYHGB ####[address] [address] Creatinine 1.13 mg/dL Normal 0.70-1.20 [facility] Comment on above: Performed By: #### C DP, CMPX, CRP, SED, GLYHGB ####[address] [address] eGFR (non-black) mL/min/{1.73_m2} Normal >60 [facility] Comment on above: Performed By: #### C DP, CMPX, CRP, SED, GLYHGB ####[address] [place] [address] Glucose mass conc 267 mg/dL High 70-99 [facility] Comment on above: Performed By: #### C DP, CMPX, CRP, SED, GLYHGB ####[address] [address] Potassium molar conc 4.3 mmol/L Normal 3.7-5.3 [facility] Comment on above: Performed By: #### C DP, CMPX, CRP, SED, GLYHGB ####[address] [place] [address] Protein 7.0 g/dL Normal 6.4-8.3 [facility] Comment on above: Performed By: #### C DP, CMPX, CRP, SED, GLYHGB ####[facility] [address] [place] [address] Sodium 133 mmol/L Low 135-144 [facility] Comment on above: Performed By: #### C DP, CMPX, CRP, SED, GLYHGB ####[address] [place] [address] Urea nitrogen 22 mg/dL High -20 [facility] Comment on above: Performed By: #### C DP, CMPX, CRP, SED, GLYHGB ####[address] [address] BUN/CRE Ratio NOT REPORTED Normal - [facility] Comment on above: Performed By: #### C DP, CMPX, CRP, SED, GLYHGB ####[address] [address] Staging: NOT REPORTED Normal [facility] Comment on above: Performed By: #### C DP, CMPX, CRP, SED, GLYHGB ####[address] [address] Consulton 04-09-2017 HIM IP Note OR Parts Back Counter Man Normal [facility] HIM IP Note OR Parts Back Counter Man Normal [facility] HIM IP Note OR Parts Back Counter Man Normal [facility] Flu A/B Ag Detectionon 04-09 Flu A/B Ag Detection Specimen Descriptio n .NASOPHARYNGEAL SWABSpecial Requests NOT REPORTEDDirect Exam PRESUMPTIVE NEGATIVE for Influenza A + B antigens. PCR testing to confirm this result is available upon request. Specimen will be saved in the laboratory for 7 days. Please call [phone] if PCR testing is indicated. Report Status FINAL 04/09/2017 Normal [facility] Comment on above: Performed By: #### C DP, CMPX, CRP, SED, GLYHGB ####[address] [place] [address] History and Physicalon 04-09 HIM IP Note OR Parts Back Counter Man Normal [facility] MRI FOOT RIGHT W WO [...] suspected despite a lack of definitive precontrast G5tzoegogw changes.Large ulcer overlying the lateral malleolus with underlying osteomyelitis.Interpreted by:SAMMI Tellezigned by:Jesusita Mock MD04/09/17inal result Normal [facility] Op Noteon 04-09-2017 HIM IP Note OR Parts Back Counter Man Normal [facility] Plan of Careon 04-09-2017 HIM IP Note OR Parts Back Counter Man Normal [facility] HIM IP Note OR Parts Back Counter Man Normal [facility] Progress Noteon 04-09-2017 HIM IP Note OR Parts Back Counter Man Normal [facility] HIM IP Note OR Parts Back Counter Man Normal [facility] HIM IP Note OR Parts Back Counter Man Normal [facility] RSV Ag Detectionon 8 RSV Ag Detection Specimen Description .NASOPHARYNGEAL SWABSpecial Requests NOT REPORTEDDirect Exam Presumptive negative for the presence of RSV antigen. PCR testing to confirm this result is available upon request. Specimen will be saved in the laboratory for 7 days. Please call [phone] if PCR testing is indicated. Report Status FINAL 04/09/2017 Normal [facility] Comment on above: Performed By: #### C DP, CMPX, CRP, SED, GLYHGB ####[employer] [facility] [employer] [place], [place] [id number] Sedimentation Rateon 018 Sedimentation Rate 80 mm High 0-10 [facility] Comment on above: Result Comment: [employer] [address] [place] [address] [phone] Performed By: #### C DP, CMPX, CRP, SED, GLYHGB ####[employer] [address] [place] [id number] XR FOOT RIGHT STANDARDon XR FOOT RIGHT [...] by:SAMMI Tellezigned by:Jesusita Mock MD04/09/17inal result Normal [facility] Vital Signs Date Time Vital Sign Value Performing Clinician Facility 02-08-2024 11:44-0500 Body height 180.34 cm Fidel Abbott MD Work Phone: [facility] 02-08-2024 11:44-0500 Body mass index (BMI) [Ratio] 31.4 kg/m2 Fidel Abbtot MD Work Phone: [facility] 02-08-2024 11:44-0500 Body weight 102.05 kg Fidel Abbott MD Work Phone: [facility] 02-08-2024 10:51-0500 Body temperature 98.1 [degF] Fidel Abbott MD Work Phone: [facility] 02-08-2024 10:51-0500 Diastolic blood pressure 66 mm[Hg] Fidel Abbott MD Work Phone: [facility] 02-08-2024 10:51-0500 Heart rate 64 /min Fidel Abbott MD Work Phone: [facility] 02-08-2024 10:51-0500 Respiratory rate 18 /min Fidel Abbott MD Work Phone: [facility] 02-08-2024 10:51-0500 Systolic blood pressure 125 mm[Hg] Fidel Abbott MD Work Phone: [facility] 01-20-2024 11:52-0400 Body height 180.3 cm Fidel Abbott MD Work Phone: [facility] 01-20-2024 11:52-0400 Body temperature 97.5 [degF] Fidel Abbott MD Work Phone: [facility] 01-20-2024 11:52-0400 Diastolic blood pressure 58 mm[Hg] Fidel Abbott MD Work Phone: [facility] 01-20-2024 11:52-0400 Heart rate 57 /min Fidel Abbott MD Work Phone: [facility] 01-20-2024 11:52-0400 Respiratory rate 20 /min Fidel Abbott MD Work Phone: [facility] 01-20-2024 11:52-0400 SaO2% (BldA) [Mass fraction] 99 % Fidel Abbott MD Work Phone: [facility] 01-20-2024 11:52-0400 Systolic blood pressure 130 mm[Hg] Fidel Abbott MD Work Phone: [facility] 06-04-2023 13:27-0500 Diastolic blood pressure 58 mm[Hg] MD Fidel Abbott Work Phone: [facility] 06-04-2023 13:27-0500 Heart rate 60 /min MD Fidel Abbott Work Phone: [facility] 06-04-2023 13:27-0500 Respiratory rate 12 /min MD Fidel Abbott Work Phone: [facility] 06-04-2023 13:27-0500 SaO2% (BldA) [Mass fraction] 98 % MD Fidel Abbott Work Phone: [facility] 06-04-2023 13:27-0500 Systolic blood pressure 135 mm[Hg] MD Fidel Abbott Work Phone: [facility] 06-04-2023 10:49-0500 Body height 180.34 cm MD Fidel Abbott Work Phone: [facility] 06-04-2023 10:49-0500 Body temperature 98 [degF] MD Fidel Abbott Work Phone: [facility] 06-04-2023 10:49-0500 Body weight 114.3 kg MD Fidel Abbott Work Phone: [facility] 05-06-2023 10:40-0500 Body height 177.8 cm Jonathan [...] 34.8 kg/m2 MD Fidel Abbott Work Phone: [facility] 05-04-2023 12:48-0500 Body height 180.34 cm MD Fidel Abbott Work Phone: [facility] 05-04-2023 12:48-0500 Body weight 113.39 kg MD Fidel Abbott Work Phone: [facility] 05-04-2023 11:25-0500 Body temperature 97.3 [degF] MD Fidel Abbott Work Phone: [facility] 05-04-2023 11:25-0500 Diastolic blood pressure 78 mm[Hg] MD Fidel Abbott Work Phone: [facility] 05-04-2023 11:25-0500 Heart rate 64 /min MD Fidel Abbott Work Phone: [facility] 05-04-2023 11:25-0500 Respiratory rate 18 /min MD Fidel Abbott Work Phone: [facility] 05-04-2023 11:25-0500 Systolic blood pressure 177 mm[Hg] MD Fidel Abbott Work Phone: [facility] 11-09-2022 13:10-0400 Blood Pressure Location Jovanny VILLA [facility] 11-09-2022 13:10-0400 Diastolic blood pressure 72 mm[Hg] Jovanny VILLA [facility] 11-09-2022 13:10-0400 Heart rate 78 /min Jovanny VILLA [facility] 11-09-2022 13:10-0400 Systolic blood pressure 148 mm[Hg] Jovanny VILLA [facility] 06-26-2022 14:00-0400 Body temperature 97.81 [degF] Eli Pimentel MD Work Phone: [employer] 06-26-2022 14:00-0400 Diastolic blood pressure 62 mm[Hg] Eli Pimentel MD Work Phone: [facility] [employer] [facility] 06-26-2022 14:00-0400 Heart rate 70 /min Eli Pimentel MD Work Phone: [employer] [facility] 06-26-2022 14:00-0400 Respiratory rate 18 /min Eli Pimentel MD Work Phone: [employer] 06-26-2022 14:00-0400 SaO2% (BldA) [Mass fraction] 95 % Eli Pimentel MD Work Phone: [employer] 06-26-2022 14:00-0400 Systolic blood pressure 144 mm[Hg] Eli Pimentel MD Work Phone: [employer] 06-26-2022 05:30-0400 Body mass index (BMI) [Ratio] 34.28 kg/m2 Eli Pimentel MD Work Phone: [facility] 06-26-2022 05:30-0400 Body weight 111.49 kg Eli Pimentel MD Work Phone: [facility] 06-25-2022 04:54-0400 Body height 180.3 cm Eli Pimentel MD Work Phone: [facility] 06-02-2022 12:14-0500 Body height 172.72 cm MD Fidel Abbott Work Phone: [facility] 06-02-2022 12:14-0500 Body mass index (BMI) [Ratio] 41 kg/m2 MD Fidel Abbott Work Phone: [facility] 06-02-2022 12:14-0500 Body weight 122.46 kg MD Fidel Abbott Work Phone: [facility] 06-02-2022 09:52-0500 Body temperature 97 [degF] MD Fidel Abbott Work Phone: [facility] 06-02-2022 09:52-0500 Diastolic blood pressure 73 mm[Hg] MD Fidel Abbott Work Phone: [facility] 06-02-2022 09:52-0500 Heart rate 76 /min MD Fidel Abbott Work Phone: [facility] 06-02-2022 09:52-0500 Systolic blood pressure 155 mm[Hg] MD Fidel Abbott Work Phone: [facility] 03-03-2022 12:06-0500 Body height 180.34 cm MD Fidel Abbott Work Phone: [facility] 03-03-2022 12:06-0500 Body mass index (BMI) [Ratio] 34.8 kg/m2 MD Fidel Abbott Work Phone: [facility] 03-03-2022 12:06-0500 Body weight 113.39 kg MD Fidel Abbott Work Phone: [facility] 03-03-2022 11:37-0500 Body temperature 97.7 [degF] MD Fidel Abbott Work Phone: [facility] 03-03-2022 11:37-0500 Diastolic blood pressure 56 mm[Hg] MD Fidel Abbott Work Phone: [facility] 03-03-2022 11:37-0500 Heart rate 68 /min MD Fidel Abbott Work Phone: [facility] 03-03-2022 11:37-0500 Respiratory rate 18 /min MD Fidel Abbott Work Phone: [facility] 03-03-2022 11:37-0500 Systolic blood pressure 122 mm[Hg] MD Fidel Abbott Work Phone: [facility] Encounters Encounter Date Encounter Type Care Provider Facility Start: 03-13-2024 End: 03-13-2024 Refill Fidel Abbott MD Work Phone: [facility] Comment on above: [facility] Start: 03-10-2024 End: 03-10-2024 Clinisync Result Encounter Generic External Data Provider [facility] External Department Unsolicited Start: 03-10-2024 End: 03-10-2024 [facility]inisync Result Encounter Generic External Data Provider [facility] External Department Unsolicited Start: 02-14-2024 End: 02-14-2024 Clinisync Result Encounter Generic External Data Provider [facility] External Department Unsolicited Start: 02-14-2024 End: 02-14-2024 Clinisync Result Encounter Generic External Data Provider [facility] External Department Unsolicited Start: 02-08-2024 Registered Recurring Fidel dubose MD Work Phone: [facility] Work Phone: Start: 02-08-2024 End: 02-08-2024 Patient encounter procedure Fidel Abbott MD Work Phone: [facility] [place] Work Phone: Start: 02-08-2024 End: 02-08-2024 ambulatory Fidel Abbott MD Work Phone: [facility] Work Phone: Start: 01-20-2024 End: [...] Orders Only Iraj Valdivia MD Work Phone: [facility] Comment on above: Stage 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 (CMS-HCC) (Primary Dx) Start: 01-12-2024 End: 01-12-2024 Telephone encounter Scanning Provider External N [facility] Start: 11-18-2023 End: 11-18-2023 ambulatory FIDEL ABBOTT Not Available Start: 11-12-2023 End: 11-12-2023 ambulatory Jovanny VILLA Facility:[facility] Start: 11-12-2023 End: 11-12-2023 Patient encounter procedure Jovanny VILLA [facility] Start: 11-08-2023 End: 11-08-2023 ambulatory Jovanny VILLA Facility:[id number] Start: 10-11-2023 End: 10-11-2023 ambulatory [facility]hadar [facility] Start: 10-04-2023 ambulatory Jovanny Acuna ty:[id number] Start: 07-08-2023 End: 07-08-2023 ambulatory MD Fidel Abbott Work Phone: [facility] Work Phone: Start: 07-08-2023 End: 07-08-2023 Departed Referred MD Fidel Abbott Work Phone: [facility] Start: 06-10-2023 End: 06-10-2023 ambulatory JONATHAN MOFFETT Not Available Start: 06-04-2023 End: 06-04-2023 Admission to same day surgery center MD Fidel Abbott Work Phone: [facility] [place] Start: 06-04-2023 End: 06-04-2023 ambulatory Jonathan Moffett Facility:[facility] Start: 06-03-2023 End: 06-03-2023 ambulatory JONATHAN MOFFETT [...] underlying condition with diabetic polyneuropathy, unspecified whether continuous churn buttermaker insulin use (CMS/HCC); Acute complete paraplegia (CMS/HCC); Acute osteomyelitis of left fibula (CMS/HCC); Foot ulcer, right, with fat layer exposed (CMS/HCC); Venous insufficiency Start: 05-04-2023 End: 05-04-2023 Discharged Recurring MD Fidel Abbott Work Phone: [facility] Work Phone: Start: 05-04-2023 End: 05-04-2023 ambulatory MD Fidel Abbott Work Phone: [facility] Work Phone: Start: 04-29-2023 End: [...] Start: 02-23-2023 End: 02-23-2023 ambulatory Cathy Brar Facility:[facility] Start: 01-19-2023 End: 01-19-2023 ambulatory Jovanny VILLA Facility:[facility] Start: 01-11-2023 End: 01-11-2023 ambulatory Jovanny VILLA Facility:[id number] Start: 11-09-2022 End: 11-09-2022 Patient encounter procedure Jovanny VILLA [facility] Start: 09-25-2022 End: 09-26-2022 ambulatory [facility]IDEL [facility] Start: 09-18-2022 End: 09-21-2022 ambulatory ASHLEE ERWIN [facility] Start: 09-18-2022 End: 09-20-2022 Subsequent hospital visit by physician [facility] Ul[facility]ound Room 2 At [facility] Ultrasound Comment on above: Cauda equina syndrom e (HCC); Neurogenic bladder; Urinary retention; Urinary incontinence without sensory awareness Start: 2022 End: 2022 ambulatory ANGELES [facility] Start: 07-02-2022 End: 07-03-2022 [facility] Start: 07-02-2022 End: 07-02-2022 Subsequent hospital visit by physician Fidel Abbott MD Work Phone: [facility] Comment on above: Acute kidney injury (HCC); Iron deficiency anemia, unspecified iron deficiency anemia type Start: 06-22-2022 End: 06-26-2022 Evaluation and management of inpatient [facility] Start: 06-22-2022 End: 06-26-2022 Evaluation and management of inpatient Eli Pimentel MD Work Phone: [facility] Comment on above: Acute kidney injury (HCC) (Primary Dx); Hyperkalemia; Iron deficiency anemia, unspecified iron deficiency anemia type Start: 06-22-2022 End: 06-22-[address] [facility] Start: 06-22-2022 End: 06-22-2022 Subsequent hospital visit by physician Fidel Abbott MD Work Phone: [facility] Comment on above: Neurogenic bladder Start: 06-02-2022 End: 06-02-2022 ambulatory MD Fidel Abbott Work Phone: [facility] Work Phone: Start: 06-02-2022 End: 06-02-2022 Discharged Recurring MD Fidel Abbott Work Phone: [facility] Work Phone: Start: 03-14-2022 End: 12-18-[address] CATHY BRAR Facility:H1 Start: 03-03-2022 End: 03-03-2022 ambulatory MD Fidel Abbott Work Phone: [facility] Work Phone: Start: 03-03-2022 End: 03-03-2022 Discharged Recurring MD Fidel Abbott Work Phone: [facility] Mer[facility] Work Phone: Start: 02-26-2022 End: 02-27-[address] CATHY BRAR Facility:H1 Start: 05-30-2021 End: 05-31-[address] FIDEL ABBOTT Facility:H1 Start: 04-09-2017 End: 04-13-2017 Evaluation and management of inpatient MICHAELA Zhu [facility] Procedures Date Procedure Procedure Detail Performing Clinician Start: 03-10-2024 ALL CBC WITH AUTO DIFF Generic External Data Provider Start: 02-14-2024 ALL SED RATE Generic External Data Provider Start: 06-04-2023 Investigation of transfusion reaction MD Fidel Abbott Work Phone: Start: 06-04-2023 Debridement MD Fidel Abbott Work Phone: Start: 10-08-2022 Cystourethroscopy with dilation of urethral stricture Jovanny VILLA Start: 09-18-2022 Us retroperitoneal real time w/image complete Ashlee Erwin [employer]S COUNTER REPRESENTATIVE - LAND LAW EXAMINER Work Phone: Start: 2022 Optical urethrotomy Jovanny VILLA Start: 07-02-2022 Basic metabolic panel calcium total Hoda jose Mondragon [employer]S COUNTER REPRESENTATIVE - LAND LAW EXAMINER Work Phone: Start: 06-26-2022 End: 06-26-2022 COLONOSCOPY [...] actv qual feces 1 deter Shelly Mondragon PARTS COUNTER REPRESENTATIVE - LAND LAW EXAMINER Work Phone: Start: 06-25-2022 Cul bact xcpt [...] of packed red blood cells Shelly Mondragon PARTS COUNTER REPRESENTATIVE - LAND LAW EXAMINER Work Phone: Start: 06-24-2022 Echo tthrc r-t 2d w/wom-mode compl spec&colr d Shelly Mondragon [employer]S COUNTER REPRESENTATIVE - LAND LAW EXAMINER Work Phone: Start: 06-24-2022 Blood typing serologic abo Shelly Mnodragon [employer]S COUNTER REPRESENTATIVE - LAND LAW EXAMINER Work Phone: Start: 06-24-2022 GLUCOSE, WHOLE BLOOD Matias Garcia MD Work Phone: Start: 06-24-2022 End: 06-24-2022 Prothrombin time Shelly Mondragon [facility] Work Phone: Start: 06-24-2022 VITAMIN B12 & FOLATE Shelly Mondragon [facility] Work Phone: Start: 06-24-2022 End: 06-25-2022 [...] ankle complete minimum 3 views Shelly Mondragon [facility] Work Phone: Start: 06-23-2022 Lipid panel [...] FINGERSTICK MICHAELA ONTIVEROS Start: 04-13-2017 DISCHARGE PATIENT MICHAELANIYA ONTIVEROS Start: 04-13-2017 POCT GLUCOSE MICHAELA ONTIVEROS Start: 04-13-2017 POC GLUCOSE FINGERSTICK MICHAELA ONTIVEROS Start: 04-13-2017 CATHETER REMOVAL MICHAELA ONTIVEROS Start: 04-13-2017 POCT GLUCOSE MICHAELA ONTIVREOS Start: 04-13-2017 HOME BIPAP OR CPAP MICHAELA ONTIVEROS Start: 04-13-2017 INITIATE OXYGEN THERAPY PROTOCOL MICHAELA Sol [facility] Start: 04-13-2017 POC GLUCOSE FINGERSTICK MICHAELA ONTIVEROS [...] Start: 04-11-2017 INITIATE OXYGEN THERAPY PROTOCOL MICHAELA WEBBER Start: 04-11-2017 BASIC METABOLIC PANEL MICHAELA ONTIVEROS [...] caval filter Jovanny VILLA Urodynamic studies Jovanny VELAZQUEZ Plan of Treatment Date Care Activity Detail Author Start: 06-26-2032 Screening for malignant neoplasm of colon [facility] Start: 10-10-2024 Adult BMI Screening Adult BMI Screening [facility] Start: 10-10-2024 Tobacco Screening Tobacco Screening [facility] Start: 05-22-2024 End: 05-22-2024 Patient encounter procedure 05/22/2024 1:15 PM EST [facility] [address] [place] [address] Fidel Abbott MD [address] [place] [phone] DAISY MARCUS Start: 04-13-2024 End: 04-13-2024 Patient encounter procedure 04/13/2024 2:00 PM EST Office Visit [facility] [place] [address] [place] [phone] Iraj Valdivia MD [address] [place], [place] [phone] [facility] Start: 01-20-2024 End: 01-20-2024 Patient encounter procedure 01/20/2024 11:45 AM EDT Office Visit [facility] [address] [place] [address] Fidel Abbott MD [address] [place] [phone] Arrived [facility] Comment on above: Arrived Start: 11-28-2023 Influenza vaccination [facility] Start: 10-18-2023 End: 10-18-2023 Patient encounter procedure 10/18/2023 10:00 AM EDT [facility] [address] [place] [address] Fidel Abbott MD [address] [place] [phone] [facility] Start: 09-19-2023 GFR test (Diabetes, CKD 3-4, OR last GFR 15-59) GFR test (Diabetes, CKD 3-4, OR last GFR 15-59) [facility] Start: 09-19-2023 Urine screening for protein Diabetes: Urine Protein Screening [facility] Start: 07-08-2023 Hemoglobin A1c measurement A1C test (Diabetic or Prediabetic) [employer] Start: 07-03-2023 GFR test (Diabetes, CKD 3-4, OR last GFR 15-59) GFR test (Diabetes, CKD 3-4, OR last GFR 15-59) [facility] [employer] [facility] Start: 06-27-2023 Screening for malignant neoplasm of colon [facility] Start: 06-26-2023 GFR test (Diabetes, CKD 3-4, OR last GFR 15-59) GFR test (Diabetes, CKD 3-4, OR last GFR 15-59) [facility] Start: 06-26-2023 Screening for malignant neoplasm of colon [facility] Start: 06-24-2023 Lipid panel Lipids [facility] Start: 06-23-2023 GFR test (Diabetes, CKD 3-4, OR last GFR 15-59) GFR test (Diabetes, CKD 3-4, OR last GFR 15-59) [facility] Start: 06-04-2023 [facility] Start: 05-20-2023 End: 05-20-2023 Patient encounter procedure 05/20/2023 3:10 PM EST Office Visit [facility] [address] [phone] Jonathan Moffett DPM [address] [address] [facility] Start: 05-06-2023 End: 05-06-2023 Patient encounter procedure 05/06/2023 10:20 AM EST Office Visit [facility] [address] [facility] [address] [place] [address] Jonathan Moffett DPM [address] [address] [facility] Start: 10-27-2022 Influenza vaccination Flu vaccine (Season Ended) [facility] Start: 10-06-2022 Hemoglobin A1c measurement Diabetes: Hemoglobin A1C [facility] Start: 09-25-2022 End: 09-25-2022 Patient encounter procedure 09/25/2022 Office Visit [facility] Start: 07-08-2022 End: 07-08-2022 Patient encounter procedure 07/08/2022 Office Visit [facility] Start: 2022 End: 2022 Admission to same day surgery center 2022 Surgery IP Unit Angeles Nagy MD [address] [facility], [address] [place] [address] CYSTOSCOPY TRANSURETHROTOMY- DVIU WITH POSS TRANSURETHRAL RESECTION OF BLADDER TUMOR [facility] Comment on above: CYSTOSCOPY TRANSURETHROTOMY- DVIU WITH P OSS TRANSURETHRAL RESECTION OF BLADDER TUMOR Start: 2022 End: 2022 Cystourethroscopy w/internal urethrotomy male CYSTOSCOPY TRANSURETHROTOMY Cauda equina syndrome (HCC) 2022 8:30 AM EDT [facility] Start: 2022 Subsequent hospital visit by physician 2022 Hospital Encounter IP Unit Angeles Nagy MD [address] [place] [address], [address] [place] [address] [facility] Start: 07-01-2022 End: 06-27-2023 Basic metabolic 2000 panel - Serum or Plasma Basic Metabolic Panel Lab Routine Acute kidney injury (HCC) Expected: 07/01/2022, Expires: 06/27/2023 [employer] Work Phone: Comment on above: Expected: 07/01/2022, Expires: 4 Start: 07-01-2022 End: 06-27-2023 CBC W Auto Differential panel - Blood CBC with Auto Differential Lab Routine Acute kidney injury (HCC) Iron deficiency anemia, unspecified iron deficiency anemia type Expected: 07/01/2022, Expires: 06/27/2023 [employer] Work Phone: Comment on above: Expected: 07/01/2022, Expires: 4 Start: 06-22-2022 Annual Wellness Visit (AWV) Annual Wellness Visit (AWV) [employer] Start: 10-27-2021 Influenza vaccination Flu vaccine (#1) [facility] Start: 04-09-2018 Diabetic foot examination Diabetic foot exam [facility] [employer] [facility] [employer] Start: 04-09-2018 Hemoglobin A1c measurement A1C test (Diabetic or Prediabetic) [facility] Start: 04-25-2016 Lipid panel Lipids [facility] Start: 04-24-2016 Urine screening for protein [facility] Start: 07-08-2011 Administration of varicella zoster vaccine Zoster (Shingles) Vaccine (1 of 2) [facility] Start: 07-08-2011 Shingles vaccine (1 of 2) Shingles vaccine (1 of 2) [facility] Start: 2006 Screening for malignant neoplasm of colon [facility] Start: 1980 DTaP,Tdap and Td Vaccines (1 - Tdap) DTaP,Tdap and Td Vaccines (1 - Tdap) [facility] Start: 1980 DTaP/Tdap/Td vaccine (1 - Tdap) DTaP/Tdap/Td vaccine (1 - Tdap) [facility] Start: 1980 Urine screening for protein Diabetes: Urine Protein Screening [facility] Start: 07-08-1979 Adult BMI Follow Up Plan Adult BMI Follow Up Plan [facility] Start: 07-08-1979 Glaucoma screening Diabetic retinal exam [facility] Start: 07-08-1979 Hepatitis C screening Hepatitis C screen [facility] Start: 1976 HIV screening HIV screen [facility] Start: 1973 Depression Monitoring Depression Monitoring [facility] Start: 1973 Depression Screening Depression Screening [facility] Start: 07-08-1971 Glaucoma screening Diabetes: Retinopathy Screening [facility] Start: 07-08-1967 Pneumococcal 0-64 years Vaccine (1 - PCV) Pneumococcal 0-64 years Vaccine (1 - PCV) [facility] Start: 01-06-1962 COVID-19 Vaccine (#1) COVID-19 Vaccine (#1) [facility] Start: 1961 Screening for malignant neoplasm of colon [facility] End: 01-16-2025 Basic metabolic 2000 panel - Serum or Plasma Basic Metabolic Panel Lab Routine Stage 3a chronic kidney disease (CMS-HCC) 1 Occurrences starting 01/17/2024 until 01/16/2025 [facility] Work Phone: Comment on above: 1 Occurrences starting 01/17/2024 until 01/16/2025 End: 01-16-2025 CBC panel - Blood by Automated count CBC without diff Lab Routine Stage 3a chronic kidney disease ([facility] 1 Occurrences starting 01/17/2024 until 01/16/2025 [employer] Comment on above: 1 Occurrences starting 01/17/2024 until 01/16/2025 End: 06-27-2022 CBC W Auto Differential panel - Blood CBC auto differential Lab Routine Daily for 5 Days starting 06/23/2022 until 06/27/2022, 4 completed [employer] Phone: Comment on above: Daily for 5 Days starting 06/23/2022 unt il 06/27/2022, 4 completed Culture, Wound Aerob ic Only Culture, Wound Aerobic Only Microbiology [employer] Label Print 06/25/2022 12:20 PM EDT [employer] Phone: End: 06-25-2022 Hemoglobin and Hematocrit Hemoglobin and Hematocrit Lab Routine Post Transfusion Post Transfusion Post Transfustion until discontinued starting 06/24/2022, 1 completed [employer] Phone: Comment on above: Post Transfusion Post Transfusion Post T ransfustion until discontinued starting 06/24/2022, 1 completed End: 01-16-2025 Magnesium [Mass/volume] in Serum or Plasma Magnesium Lab Routine Stage 3a chronic kidney disease ([facility] 1 Occurrences starting 01/17/2024 until 01/16/2025 [employer] Comment on above: 1 Occurrences starting 01/17/2024 until 01/16/2025 Oxygen therapy [[facility] Data Set] Initiate Oxygen Therapy Protocol Respiratory Care Routine Daily until discontinued starting 06/22/2022 [employer] Phone: Comment on above: Daily until discontinued starting 2022 End: 01-16-2025 Parathyroid Hormone, intact Parathyroid Hormone, intact Lab Routine Stage 3a chronic kidney disease ([facility] 1 Occurrences starting 01/17/2024 until 01/16/2025 [employer] Comment on above: 1 Occurrences starting 01/17/2024 until 01/16/2025 End: 10-21-2025 Phosphate [Mass/volume] in Serum or Plasma Phosphorus Lab Routine Stage 3a chronic kidney disease ([facility]) 1 Occurrences starting 01/17/2024 until 01/16/2025 [employer] Comment on above: 1 Occurrences starting 01/17/2024 until 01/16/2025 End: 06-24-2022 PREPARE RBC (CROSSMATCH), 1 Units PREPARE RBC (CROSSMATCH), 1 Units Blood Bank Routine Once for 1 Occurrences starting 06/24/2022 until 06/24/2022 [employer] Phone: Comment on above: Once for 1 Occurrences starting 06/25/19 until 06/24/2022 End: 01-16-2025 Protein creat ratio Protein creat ratio Lab Routine Stage 3a chronic kidney disease [facility] 1 Occurrences starting 01/17/2024 until 01/16/2025 [employer] Comment on above: 1 Occurrences starting 01/17/2024 until 01/16/2025 End: 06-25-2022 Surgical Pathology Surgical Pathology Lab Routine One Time for 1 Occurrences starting 06/25/2022 until 06/25/2022 [employer] Phone: Comment on above: One Time for 1 Occurrences starting 05/29 until 06/25/2022 Surgical Pathology Surgical Path ology Lab Routine Hyperkalemia Release Upon Ordering for 1 Occurrences starting 06/26/2022 [employer] Phone: Comment on above: Release Upon Ordering for 1 Occurrences starting 06/26/2022 End: 06-25-2022 SURGICAL PATHOLOGY REPORT SURGICAL PATHOLOGY REPORT Lab Routine Once for 1 Occurrences starting 06/25/2022 until 06/25/2022 [employer] Phone: Comment on above: Once for 1 Occurrences starting 06/26/19 until 06/25/2022 End: 06-26-2022 SURGICAL PATHOLOGY REPORT SURGICAL PATHOLOGY REPORT Lab Routine Once for 1 Occurrences starting 06/26/2022 until 06/26/2022 [employer] Phone: Comment on above: Once for 1 Occurrences starting 06/27/19 until 06/26/2022 End: 01-16-2025 Urinalysis Urinalysis Lab Routine Stage 3a chronic kidney disease ([facility]) 1 Occurrences starting 01/17/2024 until 01/16/2025 [facility] Comment on above: 1 Occurrences starting 01/17/2024 until 01/16/2025 End: 01-16-2025 Vitamin D 25 hydroxy Vitamin D 25 hydroxy Lab Routine Stage 3a chronic kidney disease ([facility]) 1 Occurrences starting 01/17/2024 until 01/16/2025 [facility] Comment on above: 1 Occurrences starting 01/17/2024 until 01/16/2025 Immunizations Immunization Date Immunization Notes Care Provider Fa [facility] 02-11-2023 influenza, injectabl e, quadrivalent, preservative free MD Fidel Abbott Work Phone: [facility] 02-11-2023 influenza virus vaccine, unspecified formulation Scanning External [facility] 04-10-2017 influenza virus vaccine, unspecified formulation Jovanny VILLA [facility] Comment on above: Result Comment: 2022: VIS DATE: 11/02/2014 04-10-2017 influenza, injectabl e, quadrivalent, preservative free Fidel Abbott MD Work Phone: [facility] 01-28-2016 Influenza Vaccine, unspecified formulation Fidel Abbott MD Work Phone: [facility] 01-01-2015 influenza virus vaccine, unspecified formulation Jovanny VILLA [facility] 01-01-2015 influenza, seasonal, injectable MD Fidel Abbott Work Phone: [facility] 01-10-2014 influenza virus vaccine, unspecified formulation Jovanny VILLA [facility] Payers Date Payer Category Payer Blue Cross Leandro kahn Managed Care - [place] [id number] 2022 Self-pay [id number] 2021 Blue [place] Blue Shield BCBS Memb er Subscriber Plan / Payer (Effective 2021-Present) Name: Ganga Stinson Relation to Subscriber: Spouse Name: PRADIP STINSON Date of : 1960 Address: [facility] [address] [place] [address] Payer ID: Not on file Type: Not on file Address: [place] [id number] 2021 Unknown BCBS BCBS xxxxxx [id number] 2021-Present [phone] [place], [place] [id number] 2015 Unknown [id number] 2006 Medicare [id number] 1960 Unknown [id number] 2.16.840.1.023901.3.579.2. 593 1961 Unknown [id number] 2.16.840.1.656446.3.579.2. 593 1961 Unknown [id number] 2.16.840.1.595264.3.579.2. 593 1961 Unknown [id number] 2.16.840.1.755122.3.579.2. 173 1961 Unknown [id number] 2.16.840.1.994391.3.579.2. 173 1961 Unknown [id number] 2.16.840.1.449599.3.579.2. 173 1961 Unknown [id number] 2.16.840.1.774256.3.579.2. 173 1961 Unknown [id number] 2.16.840.1.523754.3.579.2. 173 1961 Unknown [id number] 2.16.840.1.018080.3.579.2. 173 1961 Unknown [id number] 2.16.840.1.274157.3.579.2. 173 1961 Unknown [id number] 2.16.840.1.735057.3.579.2. 173 1961 Unknown [id number] 2.16.840.1.267159.3.579.2. 1286 1961 Unknown [id number] 2.16.840.1.794964.3.579.2. 1286 1961 Unknown [id number] 2.16.840.1.766598.3.579.2. 727 1961 Unknown [id number] 2.16.840.1.864200.3.579.2. 727 1961 Unknown [id number] 2.16.840.1.377024.3.579.2. 727 1961 Unknown [id number] 2.16.840.1.184451.3.579.2. 727 1961 Unknown [id number] 2.16.840.1.442914.3.579.2. 125 1961 Unknown [id number] 2.16.840.1.695858.3.579.2. 1258 1961 Unknown [id number] 2.16.840.1.939040.3.579.2. 125 1961 Unknown [id number] 2.16.840.1.303647.3.579.2. 1258 1961 Unknown [id number] 2.16.840.1.198664.3.579.2. 1258 1961 Unknown [id number] 2.16.840.1.970101.3.579.2. 1258 1961 Unknown [id number] 2.16.840.1.014645.3.579.2. 1258 1961 Unknown [id number] 2.16.840.1.543252.3.579.2. 1258 1961 Unknown [id number] 2.16.840.1.994704.3.579.2. 1258 1961 Unknown [id number] 2.16.840.1.627285.3.579.2. 1258 1961 Unknown [id number] 2.16.840.1.004803.3.579.2. 1258 1961 Unknown [id number] 2.16.840.1.891215.3.579.2. 1258 1961 Unknown [id number] 2.16.840.1.102200.3.579.2. 1258 1961 Unknown [id number] 2.16.840.1.065171.3.579.2. 1259 1959 Medicare [id number] 1959 Unknown [id number] 1959 Unknown [id number] Unknown [id number] 2.16.840.1.785700.3.579.2. 531 Unknown [id number] 2.16.840.1.289566.3.579.2. 531 Unknown [id number] 2.16.840.1.299637.3.579.2. 531 Unknown [id number] 2.16.840.1.016294.3.579.2. 531 Unknown [id number] 2.16.840.1.856804.3.579.2. 531 Unknown [id number] 2.16.840.1.942714.3.579.2. 531 Social History Date Type Detail Facility Start: 01-27-2022 End: 02-23-2023 Tobacco smoking status NHIS Never smoked tobacco (finding) [facility] Start: 1960 Sex Assigned At Male [facility] Start: 06-22-2022 End: 02-23-2023 Tobacco use and exposure Smokeless tobacco non-user [employer] Phone: Start: 06-22-2022 End: 07-14-2022 Alcohol intake Current non-drinker of alcohol (finding) [employer] Phone: Start: 1960 Sex Assigned At Not on file B ON [employer] Phone: Start: 06-12-2022 End: 06-22-2022 Exposure to SARS-CoV-2 (event) Not sure [employer] Start: 06-23-2022 History SDOH Alcohol Frequency 1 [employer] Phone: Start: 06-23-2022 History SDOH Alcohol Std Drinks 0 [employer] Phone: Tobacco smoking status Never [facility] Start: 04-29-2023 End: 10-17-2023 Sex Assigned At Male [facility] Start: 04-29-2023 End: 01-20-2024 Alcohol intake Lifetime non-drinker (finding) [facility] Start: 04-29-2023 End: 10-17-2023 History of Social function [facility] Start: 11-01-2014 End: 02-09-2024 Sex Male (finding) [facility] Do you belong to any clubs or organizations such as gnosticism groups, unions, fraternal or athletic groups, or school groups? No [facility] Are you now , , , , never or living with a partner? [facility] How often do you hav e 6 or more drinks on 1 occasion? Never [facility] (I/We) worried whejuan carlos er (my/our) food would run out before (I/we) got money to buy more. Never true [facility] Medical Equipment Procedure Code Equipment Code Equipment Origin al Text Equipment Identifier Dates Wound debridement EPIFIX MESH SH EET 4X4.5CM FDA Start: 06-04-2023 Wound debridement Collagen wound matrix dressing ()[id number] FDA Start: 06-04-2023 Wound debridement Collagen wound matrix dressing ()[id number] FDA Start: 06-04-2023 Wound debridement EPIFIX MESH SH EET 4X4.5CM FDA Start: 06-04-2023 Wound debridement EPIFIX MESH SH EET 4X4.5CM FDA Start: 06-04-2023 Amputation, toe Collagen wound matrix dressing ()[id number] FDA Start: 02-10-2023 Graft Subst Resorbable Mini 5cc [id number] Start: 12-25-2016 Comment on above: Description: mercedez icin recostituted with 10ml normal saline ref # [id number] exp 07/27/2018 lot # [id number] Goals Date Patient Goal Desired Activity /State Functional Status Date Assessment Result Facility 11-09-2022 Functional Status N/A [facility] Clinical Notes 07-29-2021 to 02-08-2024 Note Date & Type Note Facility 02-08-2024 Evaluation note Diagnosis Onset Date Resolution Diabetes mellitus due to underlying condition with diabetic neuropathy, wit acute February 07, 024 10:48am Pressure injury of left ischium, stage 4 acute January 272023 10:48am Pressure injury of right ischium, stage 4 acute February 08, 2024 10:48am Stage IV pressure ulcer of sacral region acute February 08, 2024 10:48am Cauda equina spinal cord injury chronic February 07 10:48am [facility] Work Phone: 1(300) 391-968910-24-2024 History of Present illness Narrative* Fidel Abbott [...] and use hydroxyzine PRN. [id number] Evaluation note* Diagnosis Stage 3a chronic kidney disease ([facility])- Primary documented in this encounter [facility]10-16-2024 Miscellaneous Notes* Telephone Encounter - Fatemeh Cain - 01/12/2024 9:03 AM EDT LM to schedule new pt appt. documented in this encounterGerman Hospital10-16-2024 Telephone encounter Note* Telephone Encounter - Fatemeh Cain - 01/12/2024 9:03 AM EDT LM to schedule new pt appt. [facility] Telephone encounter Note* Telephone Encounter - Sandhya Velasquez RN - 05/13/2023 3:00 PM EST Patient called to inquire about the antibiotic that was supposed to be sent after his 05/06 visit. Can you resend? Thank you! [facility] [id number] Miscellaneous Notes* Telephone Encounter - Sandhya Velasquez RN - 05/13/2023 3:00 PM EST Patient called to inquire about the antibiotic that was supposed to be sent after his 05/06 visit. Can you resend? Thank you! documented in this encounterMissouri Southern He[id number] History of Present illness Narrative* Jonathan Moffett, CRISTIANA - 05/06/2023 10:20 AM EST Patient: Ganga Stinson : 1960 PCP: Fidel [...] unable to go to wound care at [facility] Patient also has Integra wound graft [...] or home health. Patient currently going at [facility] for decubitus ulcer Patient still awaits MRI approval as had to be resubmitted due to need for new x-ray on previous visit in awaits MRI at [facility] . Referral has been sent to [facility] wound center with attempt to follow-up for [...] region for possible osteomyelitis to fibula at [facility] ASSESSMENT 12 weeks s/p left 4th and 5th ray amputation with incision and drainage and partial closure with single lobe flap Type 2 diabetic with paraplegia 1. Ulcer of left ankle, with necrosis of bone (HCC) (CMS/HCC) 2. Diabetes mellitus due to underlying condition with diabetic polyneuropathy, unspecified whether correction insulin use (CMS/HCC) 3. Acute complete paraplegia [...] oral antibiotics Patient to follow up with [facility] for decubitus ulcer and instructions given to [...] MRI Jonathan Moffett DPM documented in this encounterMissouri Southern [id number] Progress note Author Cathy Brar [facility] May 04, 2023 1:07pm Note Date/Time May 04, 2023 1 2:48pm [facility] EN[facility] [address] [place] [address] Wound Center Provider Note Signed Patient: Ganga Stinson MR#: [id number] : 1960 Acct:[id number] Age/Sex: 62 / M Copies to: MD [...] did wound start?: years Mode of Arrival/ Able Bodied Seaman: Personal vehicle Assistive Device Used Today: Wheelchair [...] Itching Wound/Ulcer Right Lateral Ankle: Bed Appearance: [place] and Yellow Percent of Wound Bed Granulated/Red: [...] No Odor Right Medial Foot: Bed Appearance: [place] and Yellow Percent of Wound Bed Granulated/Red: 50 Percent of Devitalized: 50 Length (cm): 1.0 Width (cm): 1.0 Depth (cm): 0.3 CM Sq: 1.000 Surrounding Tissue Appearance: Hyperpigmented Surrounding Tissue Temp: Warm Drainage Amount: Moderate Drainage Description: Serosanguineous Drainage Odor: No Odor Sacrum: Bed Appearance: Beefy Red, [place] and Yellow Percent of Wound Bed Granulated/Red: 90 Percent of Devitalized: 10 Length (cm): 2.9 Width (cm): 1.5 Depth (cm): 2.5 CM Sq: 4.350 Undermining Position: 360 deepest at 9:00 Undermining Depth: 4.0 Surrounding Tissue Appearance: Hyperpigmented, Macerated and Callous Surrounding Tissue Temp: Warm Drainage Amount: Large Drainage Description: Serosanguineous Drainage Odor: No Odor Right Ischium: Bed Appearance: Beefy Red, [place] and Yellow Percent of Wound Bed Granulated/Red: 90 Percent of Devitalized: 10 Length (cm): 5.3 Width (cm): 7.5 Depth (cm): 4.0 CM Sq: 39.750 Surrounding Tissue Appearance: [place], Macerated and Callous Surrounding Tissue Temp: Warm Drainage Amount: Large Drainage Description: Serosanguineous Drainage Odor: No Odor Left Ischium: Bed Appearance: Beefy Red and [place] Percent of Wound Bed Granulated/Red: 100 Percent [...] <Electronically signed by MD Cathy Brar> 05/04/[address] [facility] Work Phone: [phone]) 604-569108-14-2023 Hospital Discharge instructions Patient Education 11/09/2022 14:08:53 [...] Follow these instructions at home: Medicines Take aawg-qbt-dohkcsm and prescription medicines only as told by [...] provider. Document Revised: 12/04/2020 Document Reviewed: 12/04/2020 Programeter Patient Education 2022 My Ad Box. Follow Up Care 10/13/2022 11:18:02 With:ALLEN NAZARIO, Jovanny Christie, URL Address: [facility] [address], [place] [address]- [phone] When: Unknown Comments:sched cysto [facility] 03-31-2023 History of Present illness Narrative* Dragan [...] 06/26/2022 12:01 PM EDT Physical Therapy Facility/Department: [facility] MED SURG Daily Treatment Note [...] in jo LEs toassist with transfers. Subjective Subjective Subjective: [...] 06/26/2022 12:00 PM EDT Occupational Therapy Facility/Department: [facility] MED SURG Daily Treatment Note NAME: Ganga [...] In 1133 Time Out 1158 Minutes 25 Gabriellearis ABRAHAM/Cristina 06/26/22 * Dragan Voss RN - [...] 06/26/2022 9:35 AM EDT [facility] with [...] Crockett RN - 06/26/2022 3:00 AM EDT Case Managers at bedside for wound dressing change- pt incontinent of bowels. See flow sheet for details. * Panchito Crockett RN - 06/26/2022 1:30 AM EDT Pt incontinent of stool. Case Managers at bedside for wound change dressing per order- see flow sheet for details. * Panchito Crockett RN - 06/26/2022 12:50 AM EDT Patient at bedside for reassessment and vitals- see flow sheet for details. Pt remains alert and oriented c4-calm and cooperative. GoLYTELY at bedside and service writer encourages patient to consume fluid- pt validates understanding. Patient currently denying pain and discomfort. Denying any additional needs, call light placed within reach, bed in lowest position. Case Managers encourages patient to call out for assistance. Will continue to monitor. * Panchito Crockett RN - 06/26/2022 12:45 AM EDT Case Managers at bedside- pt incontinent of stool- wound dressing changed per order. See flow sheet. * Panchito Crockett RN - 06/25/2022 10:05 PM EDT Case Managers at bedside to for wound dressing change per order. See MAR for details. * Eloise Lopez PTA - 06/25/2022 3:56 PM EDT Physical Therapy Facility/Department: [facility] MED SURG Daily Treatment Note [...] bed. Supine BLE PROM exercises in all [id number] ea. Seated EOB AROM in LAQ 2x [...] admitted to the hospital with hyperkalemia. Mr. Stinsno has a known history of hypertension. He has diabetes for the past 18 years.He has never been a smoker. He saw a target man at [facility] 2 years ago in 2020. At [...] himself. He follows with wound clinic at [facility]. Mr. Stinson also denied any current or recent chest pain, abdominal pain, bleeding problems, problems with his medications or any other concerns at this time. Past Medical History: Diagnosis Date Abnormal EKG 06/23/2022 Acute kidney injury superimposed on CKD (HCC) 06/23/2022 Cauda equina syndrome ([facility]) 2004 Depression Hypertension MRSA (methicillin resistant staph aureus) culture positive 04/10/2017 right ankle Open wound of right ankle 12/30/2016 Paralysis of both lower limbs ([facility]) Paraplegia ([facility]) Type II or unspecified type diabetes mellitus without mention of complication, not stated as uncontrolled Unspecified sleep apnea CURRENT ALLERGIES: Vancomycin REVIEW OF SYSTEMS: 14 systems were reviewed. Pertinent positives and negatives as above, all else negative. Past Surgical History: Procedure Laterality Date APPENDECTOMY BACK SURGERY X2 OTHER SURGICAL HISTORY Right 04/10/2017 I&D rt foot/leg wounds MA I&D BELOW FASCIA FOOT 1 BURSAL SPACE Right 12/25/2016 FOOT DEBRIDEMENT INCISION AND DRAINAGE, 5TH DIGIT, PARTIAL AMB. PLACEMENT OF ANTIBOTIC BEADS performed by Gabriel Haile DPM at [facility] OR MA I&D BELOW FASCIA FOOT 1 BURSAL SPACE Right 04/10/2017 RIGHT ANKLE AND RIGHT HEEL DEBRIDEMENT INCISION AND DRAINAGE WITH CULTURES SENT performed by William Jimenez MD at [facility] OR MA OFFICE/OUTPT VISIT,PROCEDURE ONLY Right 06/14/2017 FOOT DEBRIDEMENT INCISION AND DRAINAGE-ANKLE INCLUDING BONE BIOPSY performed by Ro Husseint [facility] OR TOE AMPUTATION Right 12/25/2016 right fifth toe amputation with I&D, ATB beads per Dr. Haile VENA CAVA FILTER PLACEMENT [place] filter Social History: Social History Tobacco Use [...] Pressure injury of right ankle, stage [address] ([facility]) 06/24/2022 Open wound of right ankle 12/30/2016 Mixed hyperlipidemia 04/25/2015 Hyponatremia 04/25/2015 Diabetes mellitus ([facility]) 07/02/2011 Paraplegia ([facility]) 03/12/2011 MSSA (methicillin susceptible Staphylococcus aureus) infection 05/28/2017 Bacterial infection 02/17/2017 Enterococcus faecalis infection 12/28/2016 Skin ulcer of right heel with fat layer exposed ([facility]) 09/02/2016 Skin ulcer of right 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 ([facility]) 04/25/2015 Decubitus ulcer of coccygeal region 07/19/2013 Cauda equina syndrome ([facility]) 12/09/2011 Open wound of knee, leg [...] Active Cardiac Condition No (decompensated HF, Arrhythmia, CA <3 weeks, severe valve disease) Risk Level [...] plan. Sincerely, Zoila Villafuerte PA-C [facility] Mission Planner [address] [place], [place] [id number] , I believe that the risk of [...] on CKD (HCC) 06/23/2022 Cauda equina syndrome ([facility]) 2004 Depression Hypertension MRSA (methicillin resistant staph aureus) culture positive 04/10/2017 right ankle Open wound of right ankle 12/30/2016 Paralysis of both lower limbs ([facility]) Paraplegia ([facility]) Type II or unspecified type diabetes mellitus without mention of complication, not stated as uncontrolled Unspecified sleep apnea Past Surgical History: Procedure Laterality Date APPENDECTOMY BACK SURGERY X2 OTHER SURGICAL HISTORY Right 04/10/2017 I&D rt foot/leg wounds MA I&D BELOW FASCIA FOOT 1 BURSAL SPACE Right 12/25/2016 FOOT DEBRIDEMENT INCISION AND DRAINAGE, 5TH DIGIT, PARTIAL AMB. PLACEMENT OF ANTIBOTIC BEADS performed by Gabriel Haile DPM at [facility] OR MA I&D BELOW FASCIA FOOT 1 BURSAL SPACE Right 04/10/2017 RIGHT ANKLE AND RIGHT HEEL DEBRIDEMENT INCISION AND DRAINAGE WITH CULTURES SENT performed by William Jimenez MD at [facility] OR MA OFFICE/OUTPT VISIT,PROCEDURE ONLY Right 06/14/2017 FOOT DEBRIDEMENT INCISION AND DRAINAGE-ANKLE INCLUDING BONE BIOPSY performed by Ro Husseint [facility] OR TOE AMPUTATION Right 12/25/2016 right fifth toe amputation with I&D, ATB beads per Dr. Haile VENA CAVA FILTER PLACEMENT edgard filter Allergies Allergen Reactions Vancomycin States had [...] Matias Garcia MD, 5,000 Units at 06/23/22 5924 PE: VSS, Afebrile, NAD, A&O x 3, Aloof Labs: as above RLE ; lateral ankle ; FT+ ulcerative wound , +PTB IMP: stage 4 ankle decubitus, appaarent bone involvement Stable for minor bedside procedure Tx: see procedure notes P: see orders / AVS Yakov Min DPM 06/25/2022 12:28 PM * LAURENT Gomez - 06/25/2022 11:55 AM EDT Occupational Therapy Facility/Department: [facility] MED SURG Daily Treatment Note [...] MD 8:05 AM 06/25/2022 * Shelly Mondragon, PARTS COUNTER REPRESENTATIVE - LAND LAW EXAMINER - 06/25/2022 7:34 AM EDT Images from [...] labs-Hgb 7.6 today Nutrition status: morbid obesity Metal Casket Maker consult initiated Hospital Prophylaxis: DVT: Heparin Stress [...] MARIFER MCCABE-C Hospitalist Medicine 06/25/2022, 7:34 AM Shelly Mondragon APRN-DOLLY Associated attestation - Matias Garcia MD - 06/25/2022 7:34 PM EDT Images from the original note were not included. [address] [place], [place], [address] Attestation Patient: Ganga Stinson Date of Admission: 06/22/2022 4:21 PM Hospital Day # 3 Date of Evaluation: 06/25/2022 I personally evaluated and examined the patient [id number] in conjunction with the PA/OTR DRIVER and agree with the management and dispostition of the patient. Please see the PA/OTR DRIVER's note for full details.My kohli findings are: [...] with the plan as outlined in the OTR DRIVER/PA's note Disposition: Discharge plan is pending Please note that this chart was generated using voice recognition [employer] dictation software. Although every effort was made to ensure the accuracy of this automated cafeteria helper, some errors in cafeteria helper may have occurred. Matias Garcia MD 06/25/2022 [...] Samayoa RN - 06/25/2022 12:52 AM EDT Case Managers at bedside at this time to perform [...] Samayoa RN - 06/24/2022 6:43 PM EDT Case Managers at bedside at this time to perform [...] 06/24/2022 4:57 PM EDT Physical Therapy Facility/Department: [facility] MED SURG Daily Treatment Note [...] Time Out 1643 Minutes 19 Martita Tam, MIS DIRECTOR * Heri Valdez RN - 06/24/2022 4:00 [...] never been a smoker. He saw a target man at [facility] 2 years ago in 2020. At [...] himself. He follows with wound clinic at [facility]. Mr. Stinson also denied any current or recent chest pain, abdominal pain, bleeding problems, problems with his medications or any other concerns at this time. Past Medical History: Diagnosis Date Abnormal EKG 06/23/2022 Acute kidney injury superimposed on CKD (HCC) 06/23/2022 Cauda equina syndrome ([facility]) 2004 Depression Hypertension MRSA (methicillin resistant staph aureus) culture positive 04/10/2017 right ankle Open wound of right ankle 12/30/2016 Paralysis of both lower limbs ([facility]) Paraplegia ([facility]) Type II or unspecified type diabetes mellitus without mention of complication, not stated as uncontrolled Unspecified sleep apnea CURRENT ALLERGIES: Vancomycin REVIEW OF SYSTEMS: 14 systems were reviewed. Pertinent positives and negatives as above, all else negative. Past Surgical History: Procedure Laterality Date APPENDECTOMY BACK SURGERY X2 OTHER SURGICAL HISTORY Right 04/10/2017 I&D rt foot/leg wounds MA I&D BELOW FASCIA FOOT 1 BURSAL SPACE Right 12/25/2016 FOOT DEBRIDEMENT INCISION AND DRAINAGE, 5TH DIGIT, PARTIAL AMB. PLACEMENT OF ANTIBOTIC BEADS performed by Gabriel Haile DPM at [facility] OR MA I&D BELOW FASCIA FOOT 1 BURSAL SPACE Right 04/10/2017 RIGHT ANKLE AND RIGHT HEEL DEBRIDEMENT INCISION AND DRAINAGE WITH CULTURES SENT performed by William Jimenez MD at [facility] OR MA OFFICE/OUTPT VISIT,PROCEDURE ONLY Right 06/14/2017 FOOT DEBRIDEMENT INCISION AND DRAINAGE-ANKLE INCLUDING BONE BIOPSY performed by Enrique Hussein MTHZ OR TOE AMPUTATION Right 12/25/2016 right fifth toe amputation with I&D, ATB beads per Dr. Haile VENA CAVA FILTER PLACEMENT [place] filter Social History: Social History Tobacco Use [...] Mixed hyperlipidemia 04/25/2015 Hyponatremia 04/25/2015 Diabetes mellitus (HCC) 07/02/2011 Paraplegia (HCC) 03/12/2011 MSSA (methicillin susceptible Staphylococcus aureus) infection 05/28/2017 Bacterial infection 02/17/2017 Enterococcus faecalis infection 12/28/2016 Skin ulcer of right heel with fat layer exposed ([facility]) 09/02/2016 Skin ulcer of right 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 ([facility]) 04/25/2015 Decubitus ulcer of coccygeal region 07/19/2013 Cauda equina syndrome ([facility]) 12/09/2011 Open wound of knee, leg (except thigh), and ankle, complicated 02/25/2011 Acute kidney injury superimposed on CKD ([facility]) 06/23/2022 Abnormal EKG 06/23/2022 Neurogenic bladder 06/23/2022 Hyperkalemia 06/22/2022 Osteomyelitis of ankle or foot, right, acute ([facility]) Decubitus ulcer of coccygeal region, stage [address] ([facility]) 04/09/2017 Cellulitis 04/08/2017 Morbid obesity due to excess calories ([facility]) 01/01/2017 Acute on chronic renal failure ([facility]) 12/30/2016 Osteomyelitis of right foot ([facility]) Hypertension Depression PLAN: Abnormal EKG Agree with [...] plan. Sincerely, Zoila Villafuerte PA-C [facility] Mission Planner [address] [place] [id number] , I believe that the risk of [...] 06/24/2022 10:32 AM EDT Occupational Therapy Facility/Department: [facility] MED SURG Daily Treatment Note [...] Bed Mobility Training: (positioned on side for PUSH Wellness to complete ultrasound at end of session) [...] 927 Time Out 0953 Minutes 25 Gabrielle BERMUDEZ 06/24/22 * Heri Valdez RN - 06/24/2022 [...] prep on 06/25/2022 6pm KATERINA ATKINS MD [facility] Gastroenterology * Shelly Mondragon, PARTS COUNTER REPRESENTATIVE - LAND LAW EXAMINER - 06/24/2022 7:34 AM EDT Images from [...] Diagnostic Data: Complete Blood Count: Recent Labs 06/22/22171906/23/22 0640 06/24/22 0615 WBC 12.8* 9.0 6.6 [...] IRon Monitor labs Nutrition status: morbid obesity Metal Casket Maker consult initiated Hospital Prophylaxis: DVT: Heparin Stress Ulcer: na Disposition: Shared decision making: All test results, treatment options and disposition options were discussed with the patient today Social determinants of health that may impact management: none Code status: Full Code Disposition: Discharge plan is home [facility] Advanced Care Planning documentation: [x] I [...] the patient's medical record. [DOES NOT SATISFY [facility] PERFORMANCE] Shelly Mondragon, ESTELLE - DOLLY , PARTS COUNTER REPRESENTATIVE, OTR DRIVER-C [facility] Medicine 06/24/2022, 7:34 AM Blood Transfusion Consent [...] with transfusion of blood components. Shelly Mondragon APRN-LAND LAW EXAMINER Associated attestation - Matias Garcia MD - 06/24/2022 9:40 PM EDT Images from the original note were not included. [address] , [place], [place], [address] Attestation Patient: Ganga Evans Alloway Date of Admission: 06/22/2022 4:21 PM Hospital Day # 2 Date of Evaluation: 06/24/2022 I personally evaluated and examined the patient [id number] in conjunction with the PA/OTR DRIVER and agree with the management and dispostition of the patient. Please see the PA/OTR DRIVER's note for full details.My kohli findings are: [...] INTAKE/OUTPUT: Intake/Output Summary (Last 24 hours) at 06/24/20229 Last data filed at 06/24/2022 1843 Gross [...] with the plan as outlined in the OTR DRIVER/PA's note Disposition: Discharge plan is pending, GI, Cardiology, Urology consultations, Transfuse if pRBC <7, wound care to the affected area and monitor electrolytes. Please note that this chart was generated using voice recognition [employer] dictation software. Although every effort was made to ensure the accuracy of this automated cafeteria helper, some errors in cafeteria helper may have occurred. Matias Garcia MD 06/24/2022 9:39 PM * Geneva Samayoa RN - 06/24/2022 2:46 AM EDT Spoke with Dr. Garcia and informed him of critical lab levels. No new orders. * Geneva Samayoa RN - 06/24/2022 2:15 AM EDT Case Managers at bedside at this time to perform [...] this time and patient transferred over to [facility]. * Geneva Samayoa RN - 06/23/2022 9:00 PM EDT Case Managers at bedside at this time to perform [...] 06/23/2022 4:35 PM EDT Physical Therapy Facility/Department: [facility] MED SURG Daily Treatment Note NAME: Ganga Stinson DOB: 1960 Date of Service: 06/23/2022 Discharge Recommendations: [...] 1403 Minutes 38 Eloise Lopez PTA * Fidelia White, LAURENT - 06/23/2022 4:31 PM EDT Occupational Therapy Facility/Department: [facility] MED SURG Daily Treatment Note [...] Time Out 1403 Minutes 38 AIDAN Khoury * Alix Quezada - 06/23/2022 2:16 PM EDT New foam dressing placed on patients coccyx after having a BM. * Sarah Hare PT - 06/23/2022 2:08 PM EDT Physical Therapy Facility/Department: [facility] MED SURG Physical Therapy Initial [...] Ambulation Assistance: Non-ambulatory Transfer Assistance: Independent Active Wrapper Hand: No Additional Comments: Pt. with hx of [...] without Stair Climbing Raw Score : 11 (06/23/221408) AM-PAC Inpatient without Stair Climbing T-Scale Score : 35.66 (06/23/221408) Mobility Inpatient CMS 0-100% Score: 67.36 (06/23/221408) Mobility Inpatient without Stair CMS G-Code Modifier [...] Time Individual Concurrent Group Co-treatment Time In 933 Time Out 0958 Minutes 24 Sarah Hare PT, DPT * Rae Zamudio OT - 06/23/2022 11:26 AM EDT Occupational Therapy Facility/Department: [facility] MED SURG Occupational Therapy Initial [...] Ambulation Assistance: Non-ambulatory Transfer Assistance: Independent Active Wrapper Hand: No Additional Comments: Pt. 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 Patient remains alert and oriented x4-calm and cooperative. Patient continues to deny pain and discomfort. Incontinence and stewart care provided. Denying any additional needs, call light placed within reach, bed in lowest position and alarm engaged to promote patient safety. Will continue to monitor. * Panchito Crockett RN - 06/23/2022 12:00 AM EDT Case Managers attempted to place rowe catheter at this time- unable to advance 16 FR catheter. Rn Inbound Sales Representative notified and will attempt- will continue to monitor. Patient reports no pain or discomfort. * Panchito Crockett RN - 06/22/2022 11:12 PM EDT Case Managers phoned Dr. Garcia at this informing physician [...] continue to monitor. documented in this encounterBON [facility] Work Phone: 1(133) 500-840703-31-2023 Hospital Discharge instructions* Discharge Instructions* Fabby Felder [...] at most local grocery stores, pharmacies, and official.fm-stores. If you have any questions about your diet or nutrition, call the hospital and ask for the dietitian. Regular documented in this encounterBON [employer] Phone: 1(920) 948-307803-07-2023 Progress note Author Cathy Brar [facility] June 02, 2022 12:14pm Note Date/Time June 02, 2022 12:1 4pm [facility] [address] [place] [address] Wound Center Provider Note Signed Patient: Ganga Stinson MR#: [id number] : 1960 Acct:[id number] Age/Sex: 61 / M Copies to: MD Fidel Whitmore MD~ HPI Date of Visit Date of Visit: Date of Service: 06/02/2022 Time of Service: 12:01 Narrative HPI: Patient is being followed for his chronic bilateral ischial, sacral and right foot ulcers. His is doing his dressing changes. Patient has been having some right hip pain and underwent a CT scan in [place] on 03/14/2022. This showed slight deepening of [...] Constitutional: Denies fever(s) Integumentary/Breasts Skin/Breast: Reports wounds [facility] Medical History (Updated 06/02/22 @ 12:13 [...] mg tablet 100 mg PO DAILY HTN 08/08/18 [History Confirmed 01/27/22] insulin lispro 100 unit/mL [...] Sacrum: Bed Appearance: Beefy Red, Bone Palpable, [place] and Yellow Percent of Wound Bed Granulated/Red: 90 Percent of Devitalized: 10 Length (cm): 3.5 Width (cm): 1.8 Depth (cm): 2 CM Sq: 6.300 Undermining Position: 360 Undermining Depth: 3 Surrounding Tissue Appearance: [place] Surrounding Tissue Temp: Warm Drainage Amount: Large Drainage Description: Serosanguineous Drainage Odor: No Odor Left Ischium: Bed Appearance: Beefy Red, Bone Palpable, [place] and Yellow Percent of Wound Bed Granulated/Red: 90 Percent of Devitalized: 10 Length (cm): 7 Width (cm): 6 Depth (cm): 5.5 CM Sq: 42.000 Surrounding Tissue Appearance: [place] Surrounding Tissue Temp: Warm Drainage Amount: Large Drainage Description: Serosanguineous Drainage Odor: No Odor Right Ischium: Bed Appearance: Beefy Red, Bone Palpable, [place] and Yellow Percent of Wound Bed Granulated/Red: 90 Percent of Devitalized: 10 Length (cm): 0.7 Width (cm): 1 Depth (cm): 4 CM Sq: 0.700 Surrounding Tissue Appearance: [place] Surrounding Tissue Temp: Warm Drainage Amount: Moderate Drainage Description: Serosanguineous Drainage Odor: No Odor Left Ankle: Bed Appearance: Brown, [place] and Yellow Percent of Wound Bed Granulated/Red: 5 Percent of Devitalized: 95 Length (cm): 3.5 Width (cm): 2.5 Depth (cm): 0.1 CM Sq: 8.750 Surrounding Tissue Appearance: [place] Surrounding Tissue Temp: Warm Drainage Amount: Moderate Drainage Description: Serosanguineous Drainage Odor: No Odor Medial Ankle: Bed Appearance: Brown, [place] and Yellow Percent of Wound Bed Granulated/Red: 50 Percent of Devitalized: 50 Length (cm): 3.5 Width (cm): 4 Depth (cm): 0.1 CM Sq: 14.000 Surrounding Tissue Appearance: [place] Surrounding Tissue Temp: Warm Drainage Amount: Moderate Drainage Description: Serosanguineous Drainage Odor: No Odor Medial Foot: Bed Appearance: Black Dry, Brown, [place] and [place] Percent of Wound Bed Granulated/Red: 5 Percent of Devitalized: 95 Length (cm): 2 Width (cm): 1.2 Depth (cm): 0.1 CM Sq: 2.400 Surrounding Tissue Appearance: [place] Surrounding Tissue Temp: Warm Drainage Amount: Moderate [...] Diabetes mellitus type: type 2 Diabetes mellitus correction insulin use:with correction use Diabetes mellitus complication status: with skin complications Diabetes mellitus complication detail: with other skin ulcer Qualified Code(s): E11.622 - Type 2 diabetes mellitus with other skin ulcer; 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 Code(s): E11.9 - [...] <Electronically signed by MD Cathy Brar> 06/02/22 [address] [facility] Work Phone: 1(162) 881-877812-06-2022 Progress note Author Cathy Brar [facility] March 03, 2022 12:06pm Note Date/Time March 03, 2022 1 2:06pm [facility] [address] [place] [address] Wound Center Provider Note Signed Patient: Ganga Stinson MR#: [id number] : 1960 Acct:[id number] Age/Sex: 61 / M Copies to: MD [...] Ischium: Bed Appearance: Beefy Red, Bone Palpable, [place] and Yellow Percent of Wound Bed Granulated/Red: [...] Bed Appearance: Beefy Red, Bone Palpable, Devitalized, [place], Yellow and [place] Percent of Wound Bed Granulated/Red: 50 Percent of Devitalized: 50 Length (cm): 0.7 Width (cm): 0.8 Depth (cm): 4.0 CM Sq: 0.560 Undermining Position: 0 Undermining Depth: 0 Surrounding Tissue Appearance: Macerated and [place] Surrounding Tissue Temp: Warm Drainage Amount: Moderate Drainage Description: Serosanguineous Drainage Odor: No Odor Lidocaine Applied Topically: 2% Jelly Right Buttock: Bed Appearance: Devitalized, [place] and Yellow Percent of Wound Bed Granulated/Red: 100 Percent of Devitalized: 0 Length (cm): 0 Width (cm): 0 Depth (cm): 0 CM Sq: 0.000 Surrounding Tissue Appearance: Hyperpigmented Surrounding Tissue Temp: Warm Drainage Amount: None Drainage Description: Serosanguineous Drainage Odor: No Odor Lidocaine Applied Topically: 2% Jelly Right Lower Medial Leg: Bed Appearance: [place] and Yellow Percent of Wound Bed Granulated/Red: [...] Diabetes mellitus type: type 2 Diabetes mellitus continuous churn buttermaker insulin use:with continuous churn buttermaker use Diabetes mellitus complication status: with skin complications Diabetes mellitus complication detail: with other skin ulcer Qualified Code(s): E11.622 - Type 2 diabetes mellitus with other skin ulcer; 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 Code(s): E11.9 - [...] <Electronically signed by MD Cathy Brar> 03/03/[address] [facility] Work Phone: 1(161) 312-949912-02-2022 NotePROCEDURE: XR HIP RT 2 3V W [...] Electronically authenticated by: KHADAR MEDINA Date: 2022-02-27 07:17[facility]11-01-2022 Progress note Author Cathy Brar [facility] January 27, 2022 12:11pm Note Date/Time January 27, 2022 1 2:11pm [facility] [address] [place] [address] Wound Center Provider Note Signed Patient: Ganga Stinson MR#: [id number] : 1960 Acct:[id number] Age/Sex: 61 / M Copies to: MD [...] 360 Undermining Depth: 3.5 Surrounding Tissue Appearance: [place] and [place] Surrounding Tissue Temp: Warm Drainage Amount: Large Drainage Description: Serosanguineous Drainage Odor: No Odor Lidocaine Applied Topically: 2% Jelly Right Heel: Bed Appearance: Beefy Red, [place] and Yellow Percent of Wound Bed Granulated/Red: 50 Percent of Devitalized: 50 Length (cm): 1.0 Width (cm): 1.4 Depth (cm): 0.1 CM Sq: 1.400 Surrounding Tissue Appearance: Peeling and Dryness Surrounding Tissue Temp: Warm Drainage Amount: Small Drainage Description: Serosanguineous Drainage Odor: No Odor Lidocaine Applied Topically: 2% Jelly Right Ischium: Bed Appearance: Beefy Red, Bone Palpable, [place] and Yellow Percent of Wound Bed Granulated/Red: [...] Bed Appearance: Beefy Red, Bone Palpable, Devitalized, [place], Yellow and [place]led [place] Percent of Wound Bed Granulated/Red: 50 Percent of Devitalized: 50 Length (cm): 1.5 Width (cm): 1.0 Depth (cm): 4.0 CM Sq: 1.500 Undermining Position: 10-3:00 Undermining Depth: 3.5 Surrounding Tissue Appearance: Macerated and [place]led [place] Surrounding Tissue Temp: Warm Drainage Amount: Moderate Drainage Description: Serosanguineous Drainage Odor: No Odor Lidocaine Applied Topically: 2% Jelly Right Buttock: Bed Appearance: Devitalized, [place] and Yellow Percent of Wound Bed Granulated/Red: 100 Percent of Devitalized: 0 Length (cm): 0 Width (cm): 0 Depth (cm): 0 CM Sq: 0.000 Surrounding Tissue Appearance: [place] Surrounding Tissue Temp: Warm Drainage Amount: None Drainage Description: Serosanguineous Drainage Odor: No Odor Lidocaine Applied Topically: 2% Jelly Right Lower Medial Leg: Bed Appearance: [place] and Yellow Percent of Wound Bed Granulated/Red: [...] Diabetes mellitus type: type 2 Diabetes mellitus continuous churn buttermaker insulin use:with correction use Diabetes mellitus complication status: with skin [...] Orders: Dictated By: Cathy Brar MD DD/ Signed By: <Electronically signed by MD Cathy Brar> 01/27/22 [facility] Work Phone: 1(514) 523-702809-27-2022 Progress note Author Cathy Brar [facility] December 23, 2021 12:32pm Note Date/Time December 23, 2021 12:32pm [facility] [address] [place] [address] Wound Center Provider Note Signed Patient: Ganga Stinson MR#: [id number] : 1960 Acct:[id number] Age/Sex: 61 / M Copies to: MD [...] Bed Appearance: Beefy Red, Bone Palpable, Devitalized, [place] and Yellow Percent of Wound Bed Granulated/Red: 95 Percent of Devitalized: 5 Length (cm): 3.2 Width (cm): 2 Depth (cm): 2.5 CM Sq: 6.400 Undermining Position: 10-4:00 Undermining Depth: 5 Surrounding Tissue Appearance: [place] and Macerated Surrounding Tissue Temp: Warm Drainage Amount: Large Drainage Description: Serosanguineous Drainage Odor: No Odor Lidocaine Applied Topically: 2% Jelly Right Heel: Bed Appearance: Beefy Red, Devitalized, Epithelial Tissue or Bridge, [place] and Yellow Percent of Wound Bed Granulated/Red: 90 Percent of Devitalized: 10 Length (cm): 3 Width (cm): 8 Depth (cm): 0.1 CM Sq: 24.000 Surrounding Tissue Appearance: Peeling and Dryness Surrounding Tissue Temp: Warm Drainage Amount: Large Drainage Description: Serosanguineous Drainage Odor: No Odor Lidocaine Applied Topically: 2% Jelly Right Ischium: Bed Appearance: Beefy Red, Bone Palpable, Devitalized, Epithelial Tissue or Bridge, [place] and Yellow Percent of Wound Bed Granulated/Red: 95 Percent of Devitalized: 5 Length (cm): 5 Width (cm): 5 Depth (cm): 5 CM Sq: 25.000 Undermining Position: 12-6:00 Undermining Depth: 1 Surrounding Tissue Appearance: Macerated Surrounding Tissue Temp: Warm Drainage Amount: Large Drainage Description: Serosanguineous Drainage Odor: No Odor Lidocaine Applied Topically: 2% Jelly Left Ischium: Bed Appearance: Beefy Red, Bone Palpable, Devitalized, [place] and Yellow Percent of Wound Bed Granulated/Red: 95 Percent of Devitalized: 5 Length (cm): 1.6 Width (cm): 1.6 Depth (cm): 3.5 CM Sq: 2.560 Undermining Position: 10-3:00 Undermining Depth: 3.5 Surrounding Tissue Appearance: Macerated Surrounding Tissue Temp: Warm Drainage Amount: Moderate Drainage Description: Serosanguineous Drainage Odor: No Odor Lidocaine Applied Topically: 2% Jelly Right Buttock: Bed Appearance: Devitalized, [place] and Yellow Percent of Wound Bed Granulated/Red: 95 Percent of Devitalized: 5 Length (cm): 1.5 Width (cm): 0.5 Depth (cm): 0.1 CM Sq: 0.750 Surrounding Tissue Appearance: [place] and Callous Surrounding Tissue Temp: Warm Drainage Amount: Small Drainage Description: Serosanguineous Drainage Odor: No Odor Lidocaine Applied Topically: 2% Jelly Right Lower Lateral Leg: Bed Appearance: Beefy Red, Devitalized, [place] and Yellow Percent of Wound Bed Granulated/Red: 10 Percent of Devitalized: 90 Length (cm): 0 Width (cm): 0 Depth (cm): 0 CM Sq: 0.000 Surrounding Tissue Appearance: Hyperpigmented Surrounding Tissue Temp: Warm Drainage Amount: None Drainage Description: Serosanguineous Drainage Odor: No Odor Lidocaine Applied Topically: 2% Jelly Right Lower Medial Leg: Bed Appearance: Devitalized, Epithelial Tissue or Bridge, [place] and Yellow Percent of Wound Bed Granulated/Red: [...] Diabetes mellitus type: type 2 Diabetes mellitus continuous churn buttermaker insulin use:with correction use Diabetes mellitus complication status: with skin complications Diabetes mellitus complication detail: with other skin ulcer Qualified Code(s): E11.622 - Type 2 diabetes mellitus with other skin ulcer; 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 Code(s): E11.9 - [...] Orders: Dictated By: Cathy Brar MD DD/ Signed By: <Electronically signed by MD Cathy Brar> 12/23/21 12[address] [facility] Work Phone: 1(642) 840-493408-23-2022 Progress note Author Cathy Brar [facility] November 18, 2021 11:55am Note Date/Time November 18, 2021 11 :55am [facility] [address] [place] [address] Wound Center Provider Note Signed Patient: Ganga Stinson MR#: [id number] : 1960 Acct:[id number] Age/Sex: 61 / M Copies to: MD [...] Bed Appearance: Beefy Red, Bone Palpable, Devitalized, [place] and Yellow Percent of Wound Bed Granulated/Red: 75 Percent of Devitalized: 25 Length (cm): 3.5 Width (cm): 2.0 Depth (cm): 2.5 CM Sq: 7.000 Undermining Position: 360 (deepest at 3) Undermining Depth: 3.5 Surrounding Tissue Appearance: Hyperpigmented Surrounding Tissue Temp: Warm Drainage Amount: Large Drainage Description: Serosanguineous Drainage Odor: No Odor Lidocaine Applied Topically: 2% Jelly Right Heel: Bed Appearance: Devitalized, [place] and Yellow Percent of Wound Bed Granulated/Red: 1 Percent of Devitalized: 99 Length (cm): 1.6 Width (cm): 2.3 Depth (cm): 0.1 CM Sq: 3.680 Surrounding Tissue Appearance: Hyperpigmented Surrounding Tissue Temp: Warm Drainage Amount: Large Drainage Description: Serosanguineous Drainage Odor: No Odor Lidocaine Applied Topically: 2% Jelly Right Ischium: Bed Appearance: Beefy Red, Bone Palpable, Devitalized, Epithelial Tissue or Bridge, [place] and Yellow Percent of Wound Bed Granulated/Red: [...] Bed Appearance: Beefy Red, Bone Palpable, Devitalized, [place] and Yellow Percent of Wound Bed Granulated/Red: 90 Percent of Devitalized: 10 Length (cm): 2.0 Width (cm): 2.0 Depth (cm): 3.5 CM Sq: 4.000 Undermining Position: 9-11:00 Undermining Depth: 4.0 Surrounding Tissue Appearance: Hyperpigmented Surrounding Tissue Temp: Warm Drainage Amount: Moderate Drainage Description: Serosanguineous Drainage Odor: No Odor Lidocaine Applied Topically: 2% Jelly Right Buttock: Bed Appearance: Beefy Red, Devitalized, [place] and Yellow Percent of Wound Bed Granulated/Red: 95 Percent of Devitalized: 5 Length (cm): 2.4 Width (cm): 1.0 Depth (cm): 0.1 CM Sq: 2.400 Surrounding Tissue Appearance: Hyperpigmented Surrounding Tissue Temp: Warm Drainage Amount: Moderate Drainage Description: Serosanguineous Drainage Odor: No Odor Lidocaine Applied Topically: 2% Jelly Right Lower Lateral Leg: Bed Appearance: Beefy Red, Devitalized, [place] and Yellow Percent of Wound Bed Granulated/Red: 10 Percent of Devitalized: 90 Length (cm): 1.3 Width (cm): 1.4 Depth (cm): 0.1 CM Sq: 1.820 Surrounding Tissue Appearance: Hyperpigmented Surrounding Tissue Temp: Warm Drainage Amount: Moderate Drainage Description: Serosanguineous Drainage Odor: No Odor Lidocaine Applied Topically: 2% Jelly Right Lower Medial Leg: Bed Appearance: Black Dry, Devitalized, Epithelial Tissue or Bridge, [place] and Yellow Percent of Wound Bed Granulated/Red: [...] Diabetes mellitus type: type 2 Diabetes mellitus correction insulin use:with correction use Diabetes mellitus complication status: with skin [...] signed by MD Cathy Brar> 11/18/21 115[address] [facility] Work Phone: [phone] Progress note Author Cathy Brar [facility] October 21, 2021 11:44am Note Date/Time October 21, 2021 11:4 4am [facility] [address] [place] [address] Wound Center Provider Note Signed Patient: Ganga Stinson MR#: [id number] : 1960 Acct:[id number] Age/Sex: 61 / M Copies to: MD [...] Bed Appearance: Beefy Red, Bone Palpable, Devitalized, [place] and Yellow Percent of Wound Bed Granulated/Red: 75 Percent of Devitalized: 25 Length (cm): 4.2 Width (cm): 3.0 Depth (cm): 3.0 CM Sq: 12.600 Undermining Position: 360 (deepest at 3) Undermining Depth: 3.5 Surrounding Tissue Appearance: Hyperpigmented Surrounding Tissue Temp: Warm Drainage Amount: Large Drainage Description: Serosanguineous Drainage Odor: No Odor Lidocaine Applied Topically: 2% Jelly Right Heel: Bed Appearance: Devitalized, [place] and Yellow Percent of Wound Bed Granulated/Red: 50 Percent of Devitalized: 50 Length (cm): 2.3 Width (cm): 3.2 Depth (cm): 0.1 CM Sq: 7.360 Surrounding Tissue Appearance: Hyperpigmented Surrounding Tissue Temp: Warm Drainage Amount: Large Drainage Description: Serosanguineous Drainage Odor: No Odor Lidocaine Applied Topically: 2% Jelly Right Ischium: Bed Appearance: Beefy Red, Bone Palpable, Devitalized, Epithelial Tissue or Bridge, [place] and Yellow Percent of Wound Bed Granulated/Red: [...] Bed Appearance: Beefy Red, Bone Palpable, Devitalized, [place] and Yellow Percent of Wound Bed Granulated/Red: 90 Percent of Devitalized: 10 Length (cm): 3.0 Width (cm): 1.6 Depth (cm): 4.5 CM Sq: 4.800 Undermining Position: 9-11:00 Undermining Depth: 1.0 Surrounding Tissue Appearance: Hyperpigmented Surrounding Tissue Temp: Warm Drainage Amount: Moderate Drainage Description: Serosanguineous Drainage Odor: No Odor Lidocaine Applied Topically: 2% Jelly Right Buttock: Bed Appearance: Beefy Red, Devitalized, [place] and Yellow Percent of Wound Bed Granulated/Red: 80 Percent of Devitalized: 20 Length (cm): 2.2 Width (cm): 1.1 Depth (cm): 0.1 CM Sq: 2.420 Surrounding Tissue Appearance: Hyperpigmented Surrounding Tissue Temp: Warm Drainage Amount: Moderate Drainage Description: Serosanguineous Drainage Odor: No Odor Lidocaine Applied Topically: 2% Jelly Right Lower Lateral Leg: Bed Appearance: Beefy Red, Devitalized, [place] and Yellow Percent of Wound Bed Granulated/Red: 10 Percent of Devitalized: 90 Length (cm): 1.3 Width (cm): 1.4 Depth (cm): 0.1 CM Sq: 1.820 Surrounding Tissue Appearance: Hyperpigmented Surrounding Tissue Temp: Warm Drainage Amount: Moderate Drainage Description: Serosanguineous Drainage Odor: No Odor Lidocaine Applied Topically: 2% Jelly Right Lower Medial Leg: Bed Appearance: Black Dry, Devitalized, [place] and Yellow Percent of Wound Bed Granulated/Red: 80 Percent of Devitalized: 20 Length (cm): 1.6 Width (cm): 2.5 Depth (cm): 0.1 CM Sq: 4.000 Surrounding Tissue Appearance: Hyperpigmented Surrounding Tissue Temp: Warm Drainage Amount: Moderate Drainage Description: Serosanguineous Drainage Odor: No Odor Lidocaine Applied Topically: 2% Jelly Right Foot: Bed Appearance: Beefy Red, Devitalized, Epithelial Tissue or Bridge, [place] and Yellow Percent of Wound Bed Granulated/Red: [...] Diabetes mellitus type: type 2 Diabetes mellitus continuous churn buttermaker insulin use:with correction use Diabetes mellitus complication status: with skin [...] signed by MD Cathy Brar> 10/21/[address] [facility] Work Phone: [phone]) [phone] Progress note Author Cathy Brar [facility] September 16, 2021 11:55am Note Date/Time September 16, 2021 11:5 1am [facility] [address] [place] [address] Wound Center Provider Note Signed Patient: Ganga Stinson MR#: [id number] : 1960 Acct:[id number] Age/Sex: 61 / M Copies to: MD [...] Wound/Ulcer Sacrum: Bed Appearance: Bone Palpable, Devitalized, [place] and Yellow Percent of Wound Bed Granulated/Red: [...] Heel: Bed Appearance: Black Moist, Brown, Devitalized, [place] and Yellow Percent of Wound Bed Granulated/Red: 95 Percent of Devitalized: 5 Length (cm): 3.4 Width (cm): 5.1 Depth (cm): 0.1 CM Sq: 17.340 Surrounding Tissue Appearance: Hyperpigmented Surrounding Tissue Temp: Warm Drainage Amount: Large Drainage Description: Serosanguineous Drainage Odor: No Odor Lidocaine Applied Topically: 2% Jelly Right Ischium: Bed Appearance: Beefy Red, Devitalized, Epithelial Tissue or Bridge, [place] and Yellow Percent of Wound Bed Granulated/Red: 90 Percent of Devitalized: 10 Length (cm): 5.1 Width (cm): 5.5 Depth (cm): 4 CM Sq: 28.050 Undermining Position: 1-3:00 Undermining Depth: 1.5 Surrounding Tissue Appearance: Hyperpigmented Surrounding Tissue Temp: Warm Drainage Amount: Large Drainage Description: Serosanguineous Drainage Odor: No Odor Lidocaine Applied Topically: 2% Jelly Left Ischium: Bed Appearance: Beefy Red, Bone Palpable, Devitalized, [place] and Yellow Percent of Wound Bed Granulated/Red: 90 Percent of Devitalized: 10 Length (cm): 3.9 Width (cm): 1.8 Depth (cm): 5 CM Sq: 7.020 Undermining Position: 9-11:00 Undermining Depth: 2.2 Surrounding Tissue Appearance: Hyperpigmented Surrounding Tissue Temp: Warm Drainage Amount: Moderate Drainage Description: Serosanguineous Drainage Odor: No Odor Lidocaine Applied Topically: 2% Jelly Right Buttock: Bed Appearance: Beefy Red, Devitalized, [place] and Yellow Percent of Wound Bed Granulated/Red: 99 Percent of Devitalized: 1 Length (cm): 2.3 Width (cm): 0.9 Depth (cm): 0.2 CM Sq: 2.070 Surrounding Tissue Appearance: Hyperpigmented Surrounding Tissue Temp: Warm Drainage Amount: Moderate Drainage Description: Serosanguineous Drainage Odor: No Odor Lidocaine Applied Topically: 2% Jelly Right Lower Lateral Leg: Bed Appearance: Beefy Red, Devitalized, [place] and Yellow Percent of Wound Bed Granulated/Red: 20 Percent of Devitalized: 80 Length (cm): 3.8 Width (cm): 2.3 Depth (cm): 0.1 CM Sq: 8.740 Surrounding Tissue Appearance: Hyperpigmented Surrounding Tissue Temp: Warm Drainage Amount: Moderate Drainage Description: Serosanguineous Drainage Odor: No Odor Lidocaine Applied Topically: 2% Jelly Right Lower Medial Leg: Bed Appearance: Black Dry, Devitalized, [place] and Yellow Percent of Wound Bed Granulated/Red: 75 Percent of Devitalized: 25 Length (cm): 2.5 Width (cm): 2.7 Depth (cm): 0.2 CM Sq: 6.750 Surrounding Tissue Appearance: Hyperpigmented Surrounding Tissue Temp: Warm Drainage Amount: Moderate Drainage Description: Serosanguineous Drainage Odor: No Odor Lidocaine Applied Topically: 2% Jelly Right Foot: Bed Appearance: Beefy Red, Devitalized, Epithelial Tissue or Bridge, [place] and Yellow Percent of Wound Bed Granulated/Red: [...] Diabetes mellitus type: type 2 Diabetes mellitus correction insulin use:with continuous churn buttermaker use Diabetes mellitus complication status: with skin complications Diabetes mellitus complication detail: with other skin ulcer Qualified Code(s): E11.622 - Type 2 diabetes mellitus with other skin ulcer; 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 Code(s): E11.9 - [...] <Electronically signed by MD Cathy Brar> 09/16/[address] [facility] Work Phone: 1(643) 970-691305-03-2022 Progress note Author Cathy Brar [facility] July 29, 2021 12:33pm Note Date/Time July 29, 2021 12:33p [facility] ENTER [address] [place] [address] Wound Center Provider Note Signed Patient: Ganga Stinson MR#: [id number] : 1960 Acct:[id number] Age/Sex: 61 / M Copies to: MD [...] down Wound/Ulcer Sacrum: Bed Appearance: Bone Palpable, [place] and Yellow Percent of Wound Bed Granulated/Red: 50 Percent of Devitalized: 50 Length (cm): 2.6 Width (cm): 2.0 Depth (cm): 3.0 CM Sq: 5.200 Undermining Position: 9-4 (deepest at 4) Undermining Depth: 5.4 Surrounding Tissue Appearance: Hyperpigmented Surrounding Tissue Temp: Warm Drainage Amount: Large Drainage Description: Serosanguineous Drainage Odor: No Odor Lidocaine Applied Topically: 2% Jelly Right Heel: Bed Appearance: Black Moist, Brown, [place] and Yellow Percent of Wound Bed Granulated/Red: 15 Percent of Devitalized: 85 Length (cm): 6.0 Width (cm): 9.0 Depth (cm): 0.5 CM Sq: 54.000 Surrounding Tissue Appearance: Hyperpigmented Surrounding Tissue Temp: Warm Drainage Amount: Large Drainage Description: Serosanguineous Drainage Odor: No Odor Lidocaine Applied Topically: 2% Jelly Right Ischium: Bed Appearance: Beefy Red, Epithelial Tissue or Bridge, [place] and Yellow Percent of Wound Bed Granulated/Red: 50 Percent of Devitalized: 50 Length (cm): 9.3 Width (cm): 7.9 Depth (cm): 5.2 CM Sq: 73.470 Undermining Position: 360 (deepest at 7) Undermining Depth: 2.3 Surrounding Tissue Appearance: Hyperpigmented Surrounding Tissue Temp: Warm Drainage Amount: Large Drainage Description: Serosanguineous Drainage Odor: No Odor Lidocaine Applied Topically: 2% Jelly Left Ischium: Bed Appearance: [place] and Yellow Percent of Wound Bed Granulated/Red: 50 Percent of Devitalized: 50 Length (cm): 1.7 Width (cm): 1.5 Depth (cm): 3.5 CM Sq: 2.550 Undermining Position: 3-8 Undermining Depth: 4.5 Surrounding Tissue Appearance: Hyperpigmented Surrounding Tissue Temp: Warm Drainage Amount: Moderate Drainage Description: Serosanguineous Drainage Odor: No Odor Lidocaine Applied Topically: 2% Jelly Right Buttock: Bed Appearance: Beefy Red, [place] and Yellow Percent of Wound Bed Granulated/Red: 75 Percent of Devitalized: 25 Length (cm): 6.6 Width (cm): 2.0 Depth (cm): 0.1 CM Sq: 13.200 Surrounding Tissue Appearance: Hyperpigmented Surrounding Tissue Temp: Warm Drainage Amount: Moderate Drainage Description: Serosanguineous Drainage Odor: No Odor Lidocaine Applied Topically: 2% Jelly Right Lower Lateral Leg: Bed Appearance: Beefy Red, [place] and Yellow Percent of Wound Bed Granulated/Red: 50 Percent of Devitalized: 50 Length (cm): 1.8 Width (cm): 1.5 Depth (cm): 0.1 CM Sq: 2.700 Surrounding Tissue Appearance: Hyperpigmented Surrounding Tissue Temp: Warm Drainage Amount: Moderate Drainage Description: Serosanguineous Drainage Odor: No Odor Lidocaine Applied Topically: 2% Jelly Right Lower Medial Leg: Bed Appearance: Black Dry, [place] and Yellow Percent of Wound Bed Granulated/Red: [...] Diabetes mellitus type: type 2 Diabetes mellitus continuous churn buttermaker insulin use:with correction use Diabetes mellitus complication status: with skin complications Diabetes mellitus complication detail: with other skin ulcer Qualified Code(s): E11.622 - Type 2 diabetes mellitus with other skin ulcer; 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 Code(s): E11.9 - [...] will attempt to obtain that note from target man in [place]. See Instructions for Orders See Instructions for Orders See Wound Discharge Instructions for Orders: Patient may require serial debridement to remove devitalized tissue and encourage granulation. Dictated By: Cathy Brar MD DD/ [id number] Signed By: <Electronically signed by MD Cathy Brar> 07/29/[address] [facility] Work Phone: Evaluation + Plan note No data available for this section [facility] evaluation note* Diagnosis Onset Date Resolution Status Right hip pain acute Stage IV pressure ulcer of sacral region acute Unstageable pressure ulcer of right heel acute Cauda equina spinal cord injury chronic Diabetes chronic Pressure ulcer of left hip, stage 3 resolved Pressure ulcer of right hip, stage [address] [facility] Work Phone: Evaluation note* Diagnosis Neurogenic bladder Neurogenic bladder, NOS documented in this encounter [employer] Work Phone: [email or web address] note* Diagnosis Neurogenic bladder Neurogenic bladder, NOS documented in this encounter [employer] Work Phone: [email or web address] note* Diagnosis Hyperkalemia- Primary Hyperpotassemia Acute kidney [...] of neurogenic bladder documented in this encounter [employer] Phone: [email or web address] note* Diagnosis Acute kidney injury (HCC) Acute kidney failure, unspecified Iron deficiency anemia, unspecified iron deficiency anemia type documented in this encounter [employer] Phone: [email or web address] note* Diagnosis Onset Date Resolution Status Pressure injury of left ischium, stage 4 acute Pressure injury of right ischium, stage 4 acute Pressure ulcer of right foot, stage 2 acute Right hip pain acute 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 Diabetes chronic [facility] Work Phone: Evaluation note* Diagnosis Cauda equina syndrome (HCC) Cauda equina syndrome without mention of neurogenic bladder Neurogenic bladder Neurogenic bladder, NOS Urinary retention Retention of urine, unspecified Urinary incontinence without sensory awareness Incontinence without sensory awareness [facility] Diagnosis Cellulitis of left foot- Primary Ulcer of left ankle, with necrosis of bone (HCC) ([facility]) Diabetes mellitus due to underlying condition with diabetic polyneuropathy, unspecified whether correction insulin use ([facility]) Acute complete paraplegia ([facility]) Acute osteomyelitis of left fibula ([facility]) Foot ulcer, right, with fat layer exposed ([facility]) Venous insufficiency Unspecified venous (peripheral) insufficiency documented in this encounter [facility] HealthcareEvaluation note* Diagnosis Abscess of toe, right- Primary documented in this encounter [facility] HealthcareEvaluation note* Diagnosis Onset Date Resolution Status [id number] acute Foot ulcer with fat layer exposed acute Stage IV pressure ulcer of right buttock acute 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 buttock, stage [address] [facility] Work Phone: Evaluation note* Diagnosis Type 2 diabetes mellitus with hyperglycemia, without long-term current use of insulin ([facility])- Primary Dyslipidemia ([facility]) Other and unspecified hyperlipidemia Benign hypertension ([facility]) Essential hypertension, benign Major depressive disorder, recurrent episode, mild (HCC) ([facility]) Major depressive disorder, recurrent episode, mild Incontinence overflow, urine Overflow incontinence Chronic superficial 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 Type 2 diabetes mellitus with hyperglycemia, without long-term current use of insulin ([facility])- Primary Benign hypertension ([facility]/HCC) Essential hypertension, benign Major depressive disorder, recurrent episode, mild (HCC) ([facility]) Major depressive disorder, recurrent episode, mild Incontinence overflow, urine Overflow incontinence Pruritus Unspecified pruritic disorder Chronic kidney disease, stage 3a (HCC) ([facility]) Encounter for long-term (current) use of medications Encounter for long-term (current) use of other medications Cauda equina syndrome ([facility]) Cauda equina syndrome without mention of neurogenic bladder Urticaria- Primary Unspecified urticaria documented in this encounter [facility] HealthcareEvaluation note* Diagnosis Type 2 diabetes mellitus with hyperglycemia, without long-term current use of insulin ([facility])- Primary Dyslipidemia ([facility]) Other and unspecified hyperlipidemia Benign hypertension ([facility]) Essential hypertension, benign Major depressive disorder, recurrent episode, mild (HCC) ([facility]) Major depressive disorder, recurrent episode, mild Incontinence overflow, urine Overflow incontinence Chronic superficial 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 Type 2 diabetes mellitus with hyperglycemia, without long-term current use of insulin ([facility])- Primary Benign hypertension ([facility]) Essential hypertension, benign Major depressive disorder, recurrent episode, mild (HCC) ([facility]) Major depressive disorder, recurrent episode, mild Incontinence overflow, urine Overflow incontinence Pruritus Unspecified pruritic disorder Chronic kidney disease, stage 3a (HCC) ([facility]) Encounter for long-term (current) use of medications Encounter for long-term (current) use of other medications Cauda equina syndrome ([facility]) Cauda equina syndrome without mention of neurogenic bladder Urticaria- Primary Unspecified urticaria Pruritus Unspecified pruritic disorder documented in this encounter [facility] HealthcareHospital Discharge instructions Additional Instructions DISCHARGE INSTRUCTIONS FOR [...] operative site FOLLOW UP Phone numbers: Office [phone] [facility] Work Phone: Hospital Discharge instructions No data available for this section [facility] InstructionsNot on filedocumented in this encounter [facility] No data available for this section [facility] Summary Purpose Family History Relationship Condition [...] Communication Pradip Alloway Spouse Primary Decision Maker [phone] (Home) Latest Code Status on File Code Status [...] Agents on File Name Relationship Healthcare Agent Bharati p Communication Pradip Alloweleuterio Spouse Primary Decision Maker Chief Complaint and [...] Fibula Osteomyelitis, Diabetes, Ulcerative Reason for Visit [id number] Foot ulcer with fat layer exposed 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 Cauda equina spinal cord injury Pressure ulcer of left buttock, stage 3 Chief Complaint Open Wound Left Fibula Osteomyelitis, Diabetes, Ulcerative Unknown Reason for Visit [id number] Foot ulcer with fat layer exposed Stage [...] EKG 12 Lead Angeles Nagy MD [address], [address] [place] [address] Referral ID Status Reason Start Date Expiration Date V isits Requested Visits Authorized [id number] Pending Review 06/22/2022 06/22/2023 1 1 Specialty Diagnoses / Procedures Referred By Contac t Referred To Contact Radiology Diagnoses Cauda equina syndrome (HCC) Neurogenic bladder Urinary retention Urinary incontinence without sensory awareness Procedures US RENAL COMPLETE Ashlee Erwin, PARTS COUNTER REPRESENTATIVE - LAND LAW EXAMINER [address] [place] [address] Referral ID Status Reason Start Date Expiration Date Visits Re quested Visits Authorized [id number] Open 09/18/2022 09/18/2023 1 1 Additional Source Comments (unrecognized sect ion and content) No Status Records FoundNo Status Records FoundNo Status Records FoundNo Status Records FoundNo Status Records FoundNo Status Records FoundNo Status Records Found INFORMATION SOURCE (unrecogn ized section and content) DATE CREATED AUTHOR 09/21/2017 [facility] DATE CREATED AUTHOR AUTHOR'S ORGANIZ ATION 04/08/2022 [facility] [place] [facility] DATE CREATED AUTHOR AUTHOR'S ORGANIZ ATION 09/27/2022 [facility] DATE CREATED AUTHOR AUTHOR'S ORGANIZ ATION 10/22/2023 [facility] DATE CREATED AUTHOR AUTHOR'S ORGANIZ ATION 11/19/2023 [facility] DATE CREATED AUTHOR AUTHOR'S ORGANIZ ATION 01/22/2024 [facility] DATE CREATED AUTHOR AUTHOR'S ORGANIZ ATION 02/20/2024 [facility] Care Teams (unrecognized sec tion and content) Team Status: Active Member Role Status Dates Fidel Abbott MD Primary Care Provider Active Team Status: Inactive Member Role Status Dates Fidel Abbott MD Primary Care Provider Active Cathy Brar MD Attending Provider Active [employer] Copyist Relationship Specialty Start Date End Date Fidel Abbott MD PCP - General 07/03/15 [employer] Copy[employer] Relationship Specialty Start Date End Date Fidel Abbott MD PCP - General 07/03/15 [employer] Copyist Relationship Specialty Start Date End Date Fidel Abbott MD PCP - General 07/03/15 [employer] Copyist Relationship Specialty Start Date End Date Fidel Abbott MD PCP - General 07/03/15 [employer] Copyist Relationship Specialty Start Date End Date Fidel Abbott MD PCP - General 07/03/15 [employer] Copyist Relationship Specialty Start Date End Date Fidel Abbott MD PCP - General Family Medicine 12/10/22 Fidel Abbott MD [address] [place] [phone] PCP - [place] 03/29/23 [employer] Copyist Relationship Specialty Start Date End Date Fidel Abbott MD PCP - General Family Medicine 12/10/22 Fidel Abbott MD [address] [place] [phone] PCP - [place] 03/29/23 [employer] Copyist Relationship Specialty Start Date End Date Fidel Abbott MD [address] [place] [phone] PCP - [place] 03/29/23 Fidel Abbott MD [address] [place] [phone] PCP General Family Medicine 05/12/23 Team Status: [...] July 08, 2023 End: July 08, 2023 [employer] Copyist Relationship Specialty Start Date End Date Fidel Abbott MD PCP - General 12/28/16 [employer] Copyist Relationship Specialty Start Date End Date Fidel Abbott MD PCP General 12/28/16 [employer] Copyist Relationship Specialty Start Date End Date Fidel Abbott MD [address] [place] [address] PCP - [place] 02/26/23 Fidel Abbott MD [address] [place] [address] PCP - [facility] 11/18/23 [employer]inery Copyist Relationship Specialty Start Date End Date Fidel Abbott MD [address] [place] [address] PCP [facility] 02/26/23 Fidel Abbott MD [address] [place] [address] PCP - [facility] 11/18/23 Team Status: Inactive Member Role Status [...] Provider Active S tart: February 08, 2024 [employer] Copyist Relationship Specialty Start Date End Date Fidel Abbott MD [address] [place] [address] [facility] 02/26/23 Fidel Abbott MD [address] [place] [address] PCP [facility] 11/18/23 Goals (unrecognized section and content) Goals may [...] kidney injury (HCC) Matias Garcia MD [address] [place] [address] [facility] [id number] [place] [address] Referral ID Status Reason Start Date Expiration Date Visits Re quested Visits Authorized [id number] 1 1 Specialty Diagnoses / Procedures Referred By Contmary t Referred To Contact Radiology Diagnoses Cauda equina syndrome (HCC) Neurogenic bladder Urinary retention Urinary incontinence without sensory awareness Procedures US RENAL COMPLETE Ashlee Erwin, PARTS COUNTER REPRESENTATIVE - LAND LAW EXAMINER [address] [place] [address] Referral ID Status Reason Start Date Expiration Date Visits Re quested Visits Authorized [id number] Open 09/18/2022 09/18/2023 1 1 Reason Comments Foot Ulcer Reason Onset Date Comments Prescription 05/13/2023 Reason Comments Follow-up Hives Waist up hives and i tchy Reason Comments Med Refill Ordered Prescriptions (unrec ognized section and content) [...] Orders)0900 (Automatically Held - Provider: Cammy Autohold)0959 ([facility] Unhold - Provider: Dragan Voss RN)1234 (Given - Provider: Linh Chan) atenolol (TENORMIN) tablet 100 mg 100 mg, Oral, DAILY, First dose on Wed06/23/22 at 0900, Until Discontinued 09 (Given - Provider: Heri Valdez RN) 0723 (Given - Provider: Heri Valdez RN) 0812 ([facility] Hold - Provider: Cammy Autohold - Reason: Unreviewed Transfer Orders)0900 (Automatically Held - Provider: Cammy Autohold)0959 ([facility] Unhold - Provider: Dragan Voss RN)1233 (Given - Provider: Linh Chan) citalopram (CELEXA) tablet 40 mg 40 mg, Oral, DAILY, First dose on Wed06/23/22 at 0900, Until Discontinued 09 (Given - Provider: Heri Valdez RN) 0723 (Given - Provider: Heri Valdez RN) 0812 (MAR Hold - Provider: Cammy Autohold - Reason: Unreviewed Transfer Orders)0900 (Automatically Held - Provider: Cammy Autohold)0959 ([facility] Unhold - Provider: Dragan Voss RN)1235 (Given [...] Linh Rocio)2045 (Due - Provider: Linda Ibrahim [facility]) fenofibrate (TRIGLIDE) tablet 160 mg 160 mg, [...] Unreviewed Transfer Orders)0900 (Automatically Held - Provider: Camym Autohold)0959 ([facility] Unhold - Provider: Dragan Voss RN)1235 (Given [...] Transfer Orders)0900 (Automatically Held - Provider: Cammy Serra)0959 ([facility] Unhold - Provider: Dragan Voss RN)2100 [...] less into rate field of order. 0812 ([facility] Hold - Pro vider: [facility] Autohold - Reason: Unreviewed Transfer Orders)0959 ([facility] Unhold - Provider: Dragan Voss RN) 0.9 % sodium chloride infusion IntraVENous, at 240 mL/hr, Administer over 10 Minutes, PRN, blood administration, Starting on Wed06/24/22 at 0733, For 1 dose, For use in priming line prior to transfusion (prime via gravity) and flush line post transfusion ONLY. Discontinue once line has been cleared of remaining blood product. 0812 ([facility] Hold - Pro vider: [facility] [employer] - Reason: Unreviewed Transfer Orders)0959 ([facility] Unhold - Provider: Dragan Voss RN) acetaminophen (TYLENOL) suppository 650 mg(Linked Group 1) 650 mg, Rectal, EVERY 6 HOURS PRN, Starting on Wed06/22/22 at 2018, Until Discontinued, Pain Mild (1-3), Fever, For temp greater than 100.4 F (38 C), Administer if oral route cannot be used. 0812 ([facility] Hold - Pro vider: [facility] [employer] - Reason: Unreviewed Transfer Orders)0959 ([facility] Unhold - Provider: Dragan Voss RN) acetaminophen (TYLENOL) tablet 650 mg(Linked Group 1) 650 mg, Oral, EVERY 6 HOURS PRN, Starting on Wed06/22/22 at 2018, Until Discontinued, Pain Mild (1-3), Fever, For temp greater than 100.4 F (38 C), Maximum dose of acetaminophen is 4000 mg from all sources in 24 hours. 0812 ([facility] - Pro vider: [facility] [employer] - Reason: Unreviewed Transfer Orders)0959 ([facility] Unhold - Provider: Dragan Voss RN) ondansetron (ZOFRAN) injection 4 mg(Linked Group 2) 4 mg, IntraVENous, EVERY 6 HOURS PRN, Starting on Wed06/22/22 at 2017, Until Discontinued, Nausea, Vomiting, Administer if oral route cannot be used. 0812 ([facility] - Pro vider: [facility] [employer] - Reason: Unreviewed Transfer Orders)0959 ([facility] Unhold - Provider: Dragan Voss RN) ondansetron (ZOFRAN-ODT) disintegrating tablet 4 mg(Linked Group 2) 4 mg, Oral, EVERY 8 HOURS PRN, Starting on Wed06/22/22 at 2017, Until Discontinued, Nausea, Vomiting 0812 ([facility] - Pro vider: [facility] [employer] - Reason: Unreviewed Transfer Orders)0959 ([facility] Unhold - Provider: Dragan Voss RN) polyethylene glycol (GLYCOLAX) packet 17 g 17 g, Oral, DAILY PRN, Starting on Wed06/22/22 at 2017, Until Discontinued, Constipation, First line therapy for constipation 0812 ([facility] - Pro vider: [facility] [employer] - Reason: Unreviewed Transfer Orders)0959 ([facility] Unhold - Provider: Dragan Voss RN) sodium chloride flush 0.9 % injection 10 mL 10 mL, IntraVENous, PRN, Starting on Wed06/22/22 at 2017, Until Discontinued, Line Care, After every IV line use 0812 ([facility] - Pro vider: [facility] [employer] - Reason: Unreviewed Transfer Orders)0959 ([facility] Unhold - Provider: Dragan Voss RN) Linked [...] IntraVENous, EVERY 6 HOURS PRN, Starting on Wed06/22/222017, Until Discontinued, Nausea, Vomiting
Administer if oral [...] BE BASED ON THE PRIMARY CLINICAL RECORDS. [employer] provides no warranty or guarantee of the accuracy or completeness of information in this document.
[2024-03-16 08:20] VITALS: BP 129/61; PULSE 56; TEMP 36.2; O2SAT 100; BMI 34.9
[2024-03-16 08:36] LABS: Glucometer 144 mg/dL (74-106)
[2024-03-16] MEDS: LACTATED RINGER'S SOLUTION 1,000 ML 50 ML IV (08:52)
[2024-03-16] MEDS: CEFAZOLIN SODIUM 2 GM/50 ML D5W PREMIX IV (09:48)
[2024-03-16] MEDS: BUPIVACAINE HCL 0.5% PF 50 MG/10 ML VIAL INJ (10:20)
[2024-03-16] MEDS: LIDOCAINE HCL 1% 100 MG/10 ML MDV INJ (10:20)
[2024-03-16 11:01] VITALS: BP 106/48; PULSE 52; TEMP 36.3; O2SAT 97
--- NOTE | 2024-03-16 11:01 | P.ORON_ITS ---
Brief Operative Note Date of procedure: 03/16/24 Pre-op diagnosis general: Bilateral heel ulcers and right leg ulcers, type 2 d iabetes with ulceration Post-op diagnosis: same as pre-op Procedure: Procedure performed: Excisional debridement down to fascia and muscle right leg and bilateral heel ulcers, 123.75 cm2 total surface area Indications for procedure: Patient is a type II diabetic male and paraplegic with bilateral heel ulcers and right leg ulceration which are recurrent and nonhealing. He has been evaluated and treated in our wound center for several months and undergoing regular dressing changes with home health care. There has been intermittent progress that has recently plateaued. Noninvasive vascular studies resulted in low likelihood of significant vascular disease. I discussed the potential risks and benefits of surgical intervention. I believe he would be a good candidate for allogenic skin substitute however insurance denied skin substitutes therefore I recommended surgical debridement due to the size and depth of his ulcerations. Intraoperative findings: Preoperative ulcer measurements are as followed Right lower extremity: Proximal tibia 2 x 2.5 cm; mid tibia 11 x 6 cm; anterior ankle 6 x 1.5 cm; medial ankle 2.5 x 1.5 cm; posterior heel 2 x 3 cm; medial heel 1 x 2 cm Left lower extremity: Posterior/medial heel 8 x 4 cm No signs of infection. Excisional debridement was performed down to and including fat, fascia and muscle. No bone exposure. Intact skin wrinkles. Poor soft tissue envelope with thin atrophic skin. Procedure in detail: Patient was identified preoperatively by myself which time correct side and site were marked and consent was obtained. Preoperative antibiotics were started and patient is brought by the operating theater placed on table supine position. IV sedation was administered and bilateral lower extremities were prepped and draped in usual sterile fashion. Formal timeout was performed. Local anesthesia was administered with 10 cc of 1% lidocaine plain and 10 cc of 0.5% Marcaine plain. Excisional debridement of fibrotic and eschar was performed sharply down to and including deep fascia and muscle. Sharp excisional debridement was performed on the right lower extremity first. Then further debridement excising all nonviable and questionable tissue was performed with the Versajet to 100% healthy bleeding granular ulcer bed. Then Haydee hemostatic powder and a temp orary pressure dressing was applied to the right lower extremity. Then attention was drawn to the left lower extremity and sharp excisional debridement of fibrotic and eschar of the heel ulcer was performed down to and including deep fascia. Then further excisional debridement was performed with a Versajet down to and including deep fascia to 100% healthy bleeding granular ulcer base. A temporary pressure dressing was then applied with Haydee powder on the left lower extremity. The pressure dressing was removed from the right lower extremity and Xeroform, 4 x 4's, ABDs, Kerlix and a multilayer Webril and Benton bandage was applied with slight compression. Then the temporary pressure dressing was removed from the left lower extremity. Hemostasis was controlled on both extremities and a dressing consisting of Xeroform, 4 x 4's, Kerlix, ABDs and a multilayer Webril and Benton bandage under slight compression was applied. Patient tolerated procedure and anesthesia well was transferred to the recovery room with vital signs stable and brisk capillary refill to bilateral toes. Postoperative plan: Discharge home under 's care Patient may have his first dressing change in 2 to 3 days with home health care. Home health care is to follow previous wound dressing orders with Xeroform, 4 x 4's, Kerlix and Benton wrap's. Prescriptions were sent to his pharmacy using my office EMR Follow-up in wound center in 1 to 2 weeks call sooner if any problems arise Anesthesia: MAC Surgeon: Bubba Bahena Estimated blood loss (mL): 50 Pathology: none sent Condition: stable Disposition: PACU
[2024-03-16 11:16] VITALS: BP 104/48; PULSE 54; O2SAT 98
[2024-03-16 11:21] LABS: Glucometer 134 mg/dL (74-106)
[2024-03-16 11:31] VITALS: BP 123/62; PULSE 54; O2SAT 97
[2024-03-16 12:01] VITALS: BP 123/62; PULSE 54; TEMP 36.1; O2SAT 97
== END 2024-03-16 12:10 | disposition home or self-care (01) ==
PROVIDERS: PCP Family Medicine; Visit Provider Podiatrist Foot & Ankle Surgery
PROC: (CPT 1470; principal; 2024-03-16 09:05)
DX: E11.621 Type 2 diabetes mellitus with foot ulcer (principal); L97.429 Non-pressure chronic ulcer of left heel and midfoot with unspecified severity; L97.419 Non-pressure chronic ulcer of right heel and midfoot with unspecified severity; G82.20 Paraplegia, unspecified; I10 Essential (primary) hypertension; G47.33 Obstructive sleep apnea (adult) (pediatric); Z79.899 Other long term (current) drug therapy; Z79.84 Long term (current) use of oral hypoglycemic drugs; Z88.1 Allergy status to other antibiotic agents
CPT/HCPCS: 11043; 11046 ×6; 36415; 82948; J0665; J0690; J2704; J3010

== ENCOUNTER 2024-03-28 10:28 | Outpatient (OUT) | payer BC, MEDICARE, SELFPAY | END 2024-03-28 10:29 | disposition home or self-care (01) | LOC: WC 10:28 | PROVIDERS: PCP Family Medicine; Visit Provider Physician Assistant | DX: E11.621 Type 2 diabetes mellitus with foot ulcer (principal); 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 with other specified severity; E11.622 Type 2 diabetes mellitus with other skin ulcer; L97.312 Non-pressure chronic ulcer of right 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; L89.512 Pressure ulcer of right ankle, stage 2; L89.612 Pressure ulcer of right heel, stage 2 | CPT/HCPCS: G0463 ==

== ENCOUNTER 2024-04-25 15:45 | Outpatient (OUT) | payer BC, MEDICARE, SELFPAY | END 2024-04-25 15:46 | disposition home or self-care (01) | LOC: WC 15:46 | PROVIDERS: PCP Family Medicine; Visit Provider Physician Assistant | DX: E11.621 Type 2 diabetes mellitus with foot ulcer (principal); 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 with other specified severity; L97.412 Non-pressure chronic ulcer of right heel and midfoot with fat layer exposed; I87.311 Chronic venous hypertension (idiopathic) with ulcer of right lower extremity; L97.818 Non-pressure chronic ulcer of other part of right lower leg with other specified severity; E11.622 Type 2 diabetes mellitus with other skin ulcer; L97.312 Non-pressure chronic ulcer of right 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; L89.612 Pressure ulcer of right heel, stage 2; L97.422 Non-pressure chronic ulcer of left heel and midfoot with fat layer exposed | CPT/HCPCS: 29580 ==

== ENCOUNTER 2024-05-17 10:36 | Outpatient (OUT) | payer BC, MEDICARE, SELFPAY | END 2024-05-17 10:37 | disposition home or self-care (01) | LOC: WC 10:36 | PROVIDERS: PCP Family Medicine; Visit Provider Physician Assistant | DX: E11.621 Type 2 diabetes mellitus with foot ulcer (principal); 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 with other specified severity; L97.412 Non-pressure chronic ulcer of right heel and midfoot with fat layer exposed; I87.311 Chronic venous hypertension (idiopathic) with ulcer of right lower extremity; L97.818 Non-pressure chronic ulcer of other part of right lower leg with other specified severity; L97.312 Non-pressure chronic ulcer of right 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; L97.422 Non-pressure chronic ulcer of left heel and midfoot with fat layer exposed; L97.322 Non-pressure chronic ulcer of left 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 | CPT/HCPCS: G0463 ==

== ENCOUNTER 2024-05-30 10:23 | Outpatient (OUT) | payer BC, MEDICARE, SELFPAY ==
[2024-05-30 11:14] LABS: Basophils Absolute Auto 0.1 10^3/uL (0.0-0.1); Basophils Percent Auto 0.4 % (0.2-2.0); Eosinophils Absolute Auto 0.7 10^3/uL (0.0-0.7); Eosinophils Percent Auto 5.1 % (0.9-7.0); Immature Granulocytes Abs Auto 0.05 10^3/uL (0.00-0.03); Immature Granulocytes Pct Auto 0.4 % (0.0-0.5); Lymphocytes Absolute Auto 1.3 10^3/uL (1.2-3.8); Lymphocytes Percent Auto 10.2 % (20.5-60.0); Mean Corpuscular HGB Conc 30.1 g/dL (29.9-35.2); Mean Corpuscular Hemoglobin 24.7 pg (25.9-34.0); Mean Corpuscular Volume 82.1 fL (80.0-94.0); Mean Platelet Volume 8.9 fL (9.5-13.5); Monocytes Absolute Auto 1.1 10^3/uL (0.3-0.8); Monocytes Percent Auto 8.1 % (1.7-12.0); Neutrophils Absolute Auto 9.9 10^3/uL (1.4-6.5); Neutrophils Percent Auto 75.8 % (43.0-75.0); Platelet Count 292 10^3/uL (150-450); Red Blood Count 2.79 10^6/uL (4.70-6.10); Red Cell Distribution Width 15.3 % (11.0-15.0); White Blood Count 13.1 10^3/uL (4.0-11.0)
[2024-05-30 11:22] LABS: Hemoglobin 6.9 g/dL (14.0-18.0)
[2024-05-30 11:23] LABS: Hematocrit 22.9 % (42.0-54.0)
[2024-05-30 11:28] LABS: Erythrocyte Sedimentation Rate 92 mm/hr (<=20)
[2024-05-30 11:31] LABS: Anion Gap 14.7; C Reactive Protein 8.37 mg/dL (<=0.50); Calcium 8.8 mg/dL (8.5-10.1); Carbon Dioxide 20.3 mmol/L (21.0-32.0); Chloride 109 mmol/L (98-107); Estimated GFR (African America 43 (>=60 mL/min/1.73m^2); Estimated GFR (Non-African Ame 35 (>=60 mL/min/1.73m^2); Glucose 197 mg/dL (74-106); Sodium 139 mmol/L (136-145)
[2024-05-30 12:13] LABS: Percent Iron Saturation 12.7 %
== END 2024-05-30 10:24 | disposition home or self-care (01) ==
LOC: LAB 10:25
PROVIDERS: PCP Family Medicine; Visit Provider Internal Medicine Hematology & Oncology
DX: D72.829 Elevated white blood cell count, unspecified (principal); D64.9 Anemia, unspecified; D50.9 Iron deficiency anemia, unspecified; K90.9 Intestinal malabsorption, unspecified
CPT/HCPCS: 36415; 80048; 82728; 83540; 83550; 85025; 85652; 86140

== ENCOUNTER 2024-05-31 10:53 | Outpatient (OUT) | payer BC, MEDICARE, SELFPAY | END 2024-05-31 10:54 | disposition home or self-care (01) | LOC: WC 10:54 | PROVIDERS: PCP Family Medicine; Visit Provider Physician Assistant | DX: E11.621 Type 2 diabetes mellitus with foot ulcer (principal); 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 with other specified severity; L97.412 Non-pressure chronic ulcer of right heel and midfoot with fat layer exposed; I87.311 Chronic venous hypertension (idiopathic) with ulcer of right lower extremity; L97.818 Non-pressure chronic ulcer of other part of right lower leg with other specified severity; E11.622 Type 2 diabetes mellitus with other skin ulcer; L97.312 Non-pressure chronic ulcer of right 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; L89.612 Pressure ulcer of right heel, stage 2; L97.422 Non-pressure chronic ulcer of left heel and midfoot with fat layer exposed; L97.322 Non-pressure chronic ulcer of left 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 | CPT/HCPCS: 11043; 11046 ==

== ENCOUNTER 2024-06-08 07:36 | Outpatient (RCR) | payer BC, MEDICARE, SELFPAY ==
--- NOTE | 2024-05-30 11:22 | PC.NURSE ---
critical labs called at 1122 am HGB and HCT 22.9
[2024-06-06 10:46] LABS: Basophils Percent Auto 0.3 % (0.2-2.0); Eosinophils Absolute Auto 0.7 10^3/uL (0.0-0.7); Eosinophils Percent Auto 5.5 % (0.9-7.0); Immature Granulocytes Abs Auto 0.04 10^3/uL (0.00-0.03); Immature Granulocytes Pct Auto 0.3 % (0.0-0.5); Lymphocytes Absolute Auto 1.6 10^3/uL (1.2-3.8); Lymphocytes Percent Auto 12.9 % (20.5-60.0); Mean Corpuscular HGB Conc 29.9 g/dL (29.9-35.2); Mean Corpuscular Hemoglobin 24.7 pg (25.9-34.0); Mean Corpuscular Volume 82.7 fL (80.0-94.0); Monocytes Percent Auto 8.4 % (1.7-12.0); Neutrophils Absolute Auto 8.9 10^3/uL (1.4-6.5); Neutrophils Percent Auto 72.6 % (43.0-75.0); Platelet Count 300 10^3/uL (150-450); Red Blood Count 2.71 10^6/uL (4.70-6.10); Red Cell Distribution Width 15.5 % (11.0-15.0); White Blood Count 12.2 10^3/uL (4.0-11.0)
[2024-06-06 10:49] LABS: Hematocrit 22.4 % (42.0-54.0); Hemoglobin 6.7 g/dL (14.0-18.0)
[2024-06-08] VITALS (8 sets, daily range): BP systolic 128–146; BP diastolic 64–85; PULSE 55–61; TEMP 35.7–36.2; O2SAT 97–98
[2024-06-08] MEDS: ACETAMINOPHEN 325 MG TABLET 650 MG PO (10:30)
[2024-06-08] MEDS: DIPHENHYDRAMINE HCL 25 MG CAPSULE PO (10:30)
--- NOTE | 2024-06-08 12:46 | PC.NURSE ---
1046: First unit PRBC initiated at this time. Denies needs. Drinking water. 1100: Tolerating infusion without s&s of adverse reaction. IV site clear.
--- NOTE | 2024-06-08 12:47 | PC.NURSE ---
1215: First unit PRBC infused without s&s of transfusion reaction. 1225: Second unit PRBC initiated. Lunch tray provided.
== END 2024-06-26 23:59 | disposition home or self-care (01) ==
LOC: HEMC 07:36
PROVIDERS: PCP Family Medicine; Visit Provider Internal Medicine Hematology & Oncology
DX: D64.9 Anemia, unspecified (principal); D72.829 Elevated white blood cell count, unspecified; D50.9 Iron deficiency anemia, unspecified; K90.9 Intestinal malabsorption, unspecified; Z90.49 Acquired absence of other specified parts of digestive tract; N28.9 Disorder of kidney and ureter, unspecified; E11.9 Type 2 diabetes mellitus without complications; I10 Essential (primary) hypertension; G47.30 Sleep apnea, unspecified; Z79.84 Long term (current) use of oral hypoglycemic drugs
CPT/HCPCS: 36415; 36430; 80048; 82728; 83540; 83550; 85025; 85652; 86140; 86850; 86900; 86901; 86923; G0463; P9016

== ENCOUNTER 2024-06-09 11:27 | Outpatient (RCR) | payer BC, MEDICARE, SELFPAY | END 2024-08-19 08:41 | disposition home or self-care (01) | LOC: OT 11:27 | PROVIDERS: PCP Family Medicine; Visit Provider Physician Assistant | DX: I89.0 Lymphedema, not elsewhere classified (principal); I87.2 Venous insufficiency (chronic) (peripheral); L98.491 Non-pressure chronic ulcer of skin of other sites limited to breakdown of skin; I87.313 Chronic venous hypertension (idiopathic) with ulcer of bilateral lower extremity | CPT/HCPCS: 97140; 97167; 97530 ==

== ENCOUNTER 2024-06-28 11:38 | Outpatient (OUT) | payer BC, MEDICARE, SELFPAY | END 2024-06-28 11:39 | disposition home or self-care (01) | LOC: WC 11:38 | PROVIDERS: PCP Family Medicine; Visit Provider Physician Assistant | DX: L97.312 Non-pressure chronic ulcer of right 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 (principal); I87.311 Chronic venous hypertension (idiopathic) with ulcer of right lower extremity; E11.621 Type 2 diabetes mellitus with foot ulcer; 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 with other specified severity; L97.412 Non-pressure chronic ulcer of right heel and midfoot with fat layer exposed; L97.818 Non-pressure chronic ulcer of other part of right lower leg with other specified severity; L97.422 Non-pressure chronic ulcer of left heel and midfoot with fat layer exposed; E11.622 Type 2 diabetes mellitus with other skin ulcer; L89.93 Pressure ulcer of unspecified site, stage 3 | CPT/HCPCS: G0463 ==

== ENCOUNTER 2024-08-09 09:49 | Outpatient (OUT) | payer BC, MEDICARE, SELFPAY | END 2024-08-09 09:50 | disposition home or self-care (01) | LOC: WC 09:50 | PROVIDERS: PCP Family Medicine; Visit Provider Physician Assistant | DX: L97.312 Non-pressure chronic ulcer of right 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 (principal); L89.620 Pressure ulcer of left heel, unstageable; L89.610 Pressure ulcer of right heel, unstageable; L97.813 Non-pressure chronic ulcer of other part of right lower leg with necrosis of muscle; L89.893 Pressure ulcer of other site, stage 3; L97.322 Non-pressure chronic ulcer of left 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 | CPT/HCPCS: 11043; 11046 ==

== ENCOUNTER 2024-08-10 10:32 | Outpatient (OUT) | payer BC, MEDICARE, SELFPAY ==
--- OUTSIDE RECORDS SUMMARY | 2024-08-10 10:51 | XMS_ITS | CCD ---
Author Organization [facility] Care Team Providers Care Customer Support Advisor Name Role Phone WESTONMICHAELA Unavailable Unavailable NADERER, [...] NADERER, DR FIDEL Tellez Primary Care Unavailable FERRIS, DR KHADAR Edwards Consulting Unavailable BRAR, DR CATHY Edwards Consulting Unavailable MD Fidel Abbott Primary Care Provider MD Cathy Brar Attending Provider Fidel Abbott MD Primary Care Provider MD Fidel Abbott Primary Care Provider [phone] MD Cathy Brar Attending Provider Fidel Abbott MD Primary Care Provider SHELLY MONDRAGON Referring Unavail able NADEREFIDEL Christie Primary Care UnavailASHLEE Juan Referring Unavailable NADERER, FIDEL LIEBERMAN Primary Care UnavailASHLEE Juan Referring Unavailable NADERER, FIDEL LIEBERMAN Primary Care Unavailabl e ANGELES NAGY Referring Unavailable NADERER, FIDEL LUISANA Primary Care Unavailabl e LILO, ANGELES Attending Unavailable LILO, ANGELES Admitting Unavailable NADERER, FIDEL LUISANA Primary Care Unavailabl e IACOB, MATIAS Admitting Unavailable IACOB, MATIAS Attending Unavailable AROMND, MARY Sol Consulting Unavailable NADERER, FIDEL LUISANA Primary Care Unavailabl e LILO, ANGELES Consulting Unavailable BREMYYAKOV FITZPATRICK Consulting Unavailable CIARAROSIE WARREN Consulting Unavailable AHMADMICHELLE Consulting Unavailable MILLYKATERINA BOYD Consulting Unavailable NADERER, FIDEL RIOSONY Primary Care Unavailabl e LILO, ANGELES Referring Unavailable NADERER, FIDEL LUISANA Primary Care Unavailabl e ASHLEE ERWIN Referring Unavailable NADERER, FIDEL Primary Care Physician Smiley NAZARIO, Fidel Primary Care Provider Fidel Abbott MD Unavailable Smiley NAZARIO, Fidel Primary Care Provider [phone] MD Fidel Abbott Primary Care Provider MD Cathy Brar Attending Provider [phone] CRISTIANA Bah Attending Provider CRISTIANA Bahena Attending Provider Khadar Guerrero Referring Unavailable NADERER, FIDEL Primary Care Unavailable NADERER, FIDEL Referring Unavailable Smiley NAZARIO, Fidel Primary Care Provider Fidel Abbott MD Unavailable Smiley NAZARIO, Fidel Primary Care Provider Smiley NAZARIO, Fidel Primary Care Provider Nina River MD Attending Provider Cathy Brar MD Attending Provider ANGIE CHRISTY Attending Unavailable Jovanny VILLA Attending Unavailable Jovanny VILLA Attending Unavailable Jovanny VILLA Referring Unavailable Jovanny VILLA Attending Unavailable Cathy Brar MD Attending Provider Smiley NAZARIO, Fidel Primary Care Provider Fidel Abbott MD Unavailable Cathy Brar Admitting Unavailable Cathy Brar Attending Unavailable Fidel Abbott Primary Care Unavailable Nathen Riverorva Admitting Unavailable Kris Riverva Attending Unavailable Fidel Abbott Primary Care Unavailable Cathy Brar Admitting Unavailable Cathy Brar Attending Unavailable Fidel Abbott Primary Care Unavailable FIDEL ABBOTT Attending Unavailable FIDEL ABBOTT Attending Unavailable FIDEL ABBOTT Attending Unavailable Allergies Allergy Classification Reported Allergen(s) Allergy Type Date of Onset Reaction(s) Facility (8 sources) Vancomycin; 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: [VANCOMYCIN] Drug Allergy 6 Shut kidneys down [facility] Repository (20 sources) Vancomycin Drug Allergy 6 Other, Unknown, Other (See Comments) [facility] (20 sources) omadacycline; 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: [omadacycl] Drug allergy 3 Renal pain (finding) [facility] (5 sources) ferrous sulfate; 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: [ferrous sulfate] Drug Allergy 3 Itching [facility] (1 source) Vancomycin Drug Allergy 3 [facility] Repository Medications Current Medications Medication Drug Class(es) Dates Sig (Normalized) Sig (Original) Acetaminophen (1 source) Start: 06-22-2022 acetaminophen (TYLENOL) tablet 650 mg amLODIPine 10 mg oral tablet (20 sources) Dihydropyridine Calcium Channel [place] Start: 07-03-2024 take 1 tablet by mouth once daily amLODIPine (Norvasc) 10 MG tablet Indications: Primary hypertension (CMS/HCC) Take 1 tablet by mouth once daily 30 tablet 07/03/2024 Active Start: 12-07-2016 End: 12-08-2016 Amlodipine Discontinued Nov 12:00am December 08, 2016 2:50pm Start: 12-07-2016 End: 12-08-2016 Amlodipine Discontinued Nov 11:00pm December 08, 2016 1:50pm Start: 06-27-2016 take 1 tablet by mack th once daily amLODIPine (Norvasc) 10 MG tablet Indications: Primary hypertension (CMS/HCC) Take 1 tablet by mouth once daily 30 tablet 04/25/2024 Active End: 06-26-2022 take 2 tablets by [...] at Discharge) atorvastatin 40 mg oral tablet (20 sources) HMG-CoA Reductase Inhibitor Start: 07-03-2024 take 1 tablet by mouth in the morning atorvastatin (Lipitor) 40 MG tablet Indications: Dyslipidemia (CMS/HCC) TAKE 1 TABLET BY MOUTH IN THE MORNING 30 tablet 07/03/2024 Active Start: 04-25-2024 take 1 tablet by mack th in the morning atorvastatin (Lipitor) 40 MG tablet Indications: Dyslipidemia (CMS/HCC) TAKE 1 TABLET BY MOUTH IN THE MORNING 30 tablet 04/25/2024 Active Start: 04-06-2023 End: 04-05-2024 take 1 tablet by mouth once daily Atorvastatin 40 mg tablet Active 40 MG PO Daily May 04, 2023 12:00am citalopram 40 mg oral tablet (20 sources) [...] at Discharge) clindamycin 300 mg oral capsule (10 sources) Lincosamide Antibacterial Start: 05-13-2023 End: 05-23-2023 [...] mg oral tablet (20 sources) Sulfonylurea Start: 07-03-2024 take 1 tablet by mouth twice daily at bedtime glipiZIDE (Glucotrol) 10 MG tablet Indications: Type 2 diabetes mellitus with hyperglycemia, without long-term current use of insulin (CMS/[facility]) TAKE 1 TABLET BY MOUTH TWICE DAILY (MORNING AND BEDTIME) 60 tablet 07/03/2024 Active Start: 06-30-2018 take 1 tablet by mack th twice daily at bedtime glipiZIDE (Glucotrol) 10 MG tablet Indications: Type 2 diabetes mellitus with hyperglycemia, without long-term current use of insulin (CMS/HCC) TAKE 1 TABLET BY MOUTH TWICE DAILY (MORNING AND BEFORE BEDTIME) 60 tablet 04/25/2024 Active hydrOXYzine hydrochloride 50 mg oral tablet (16 sources) Antihistamine Start: 07-31-2024 take 1 tablet by mouth four times daily as needed hydrOXYzine HCl (Atarax) 50 MG tablet Indications: Pruritus Take 1 tablet (50 mg) by mouth 4 (four) times a day as needed for itching 120 tablet 5 07/31/2024 Active Start: 07-31-2024 take 1 tablet by mack th four times daily as needed hydrOXYzine HCl (Atarax) 50 MG tablet Indications: Pruritus Take 1 tablet (50 mg) by mouth 4 (four) times a day as needed for itching 120 tablet 5 07/31/2024 Active Start: 07-18-2024 End: 07-31-2024 take 1 tablet by mouth four times daily as needed hydrOXYzine HCl (Atarax) 50 MG tablet Indications: Pruritus TAKE 1 TABLET BY MOUTH 4 TIMES DAILY NEEDED FOR ITCHING 30 tablet 07/18/2024 07/31/2024 Discontinued (Reorder) Start: 02-01-2024 End: 03-13-2024 take 1 tablet [...] itching 30 tablet 2 01/17/2024 01/20/2024 Discontinued Start: 11-18-2023 take 1 tablet by mack th four times daily as needed hydrOXYzine HCl (Atarax) 25 MG tablet Indications: Pruritus Take 1 tablet (25 mg) by mouth 4 (four) times a day as needed for itching 120 tablet 3 11/18/2023 Active sodium hypochlorite 1.25 mg/ ml topical spray (16 sources) Start: 06-26-2022 sodium hypochl orite (DAKINS) [...] (20 sources) Angiotensin Converting Enzyme Inhibitor Start: 07-24-2024 take 1 tablet by mouth once daily lisinopril 20 MG tablet Indications: Benign hypertension (CMS/HCC) Take 1 tablet by mouth once daily 30 tablet 07/24/2024 Active Start: 05-22-2024 take 1 tablet by mack th once daily lisinopril 20 MG tablet Indications: Benign hypertension (CMS/HCC) Take 1 tablet by mouth once daily 30 tablet 05/22/2024 Active Start: 03-01-2024 take 1 tablet by mack th once daily lisinopril 20 MG tablet Indications: Benign hypertension (CMS/HCC) Take 1 tablet by mouth once daily 30 tablet 03/01/2024 Active Start: 01-05-2024 take 1 tablet by mack th once daily lisinopril 20 MG tablet Indications: Benign hypertension (CMS/HCC) Take 1 tablet by mouth once daily 30 tablet 01/05/2024 Active Start: 11-18-2023 take 1 tablet by mack th once daily lisinopril 20 MG tablet Indications: Benign hypertension (CMS/HCC) Take 1 tablet by mouth once daily 30 tablet 11/18/2023 Active Start: 11-09-2022 lisinopril 20 mg Tab [...] chloride 15 mg extended release oral tablet (20 sources) Cholinergic Muscarinic Antagonist Start: 02-13-2023 take 1 tablet by mouth once daily Oxybutynin Chloride 5 mg Tablet Extended Release 24hr Active 15 MG PO Daily February 13, 2023 12:00am On Hold: not taking Start: 02-13-2023 take 15 mg by mouth once daily Oxybutynin Chloride Active 15 MG PO Daily 90 February 13, 2023 1:00am Start: 11-09-2022 End: 05-01-2025 take 1 tablet by mouth once daily oxybutynin XL (Ditropan-XL) 15 MG 24 hr tablet Indications: Incontinence overflow, urine Take 1 tablet (15 mg) by mouth Daily 30 tablet 11 05/01/2024 05/01/2025 Active Start: 11-09-2022 oxybutynin 15 mg ER Tab Refills(s) 0 Start Date: 11/09/22 Status: Ordered Start: 03-23-2019 End: 02-07-2023 take 1 tablet [...] 01/23/2024 Active SITagliptin 100 mg oral tablet (20 sources) Dipeptidyl Peptidase 4 Inhibitor Start: 07-24-2024 take 1 tablet by mouth once daily Januvia 100 MG tablet Indications: Type 2 diabetes mellitus with hyperglycemia, without long-term current use of insulin (CMS/HCC) Take 1 tablet by mouth once daily 30 tablet 07/24/2024 Active Start: 05-22-2024 take 1 tablet by mack th once daily Januvia 100 MG tablet Indications: Type 2 diabetes mellitus with hyperglycemia, without long-term current use of insulin (CMS/HCC) Take 1 tablet by mouth once daily 30 tablet 05/22/2024 Active Start: 07-29-2021 take 1 tablet by mack th once daily Januvia 100 MG tablet Indications: Type 2 diabetes mellitus with hyperglycemia, without long-term current use of insulin (CMS/HCC) Take 1 tablet by mouth once daily 30 tablet 03/01/2024 Active 1000 ml sodium chloride 9 mg [...] / HYDROcodone bitartrate 5 mg oral tablet (16 sources) Opioid Agonist Start: 09-04-2021 End: 02-06-2023 [...] mg / clavulanate 125 mg oral tablet (16 sources) Penicillin-class Antibacterial Start: 12-01-2022 End: 02-07-2023 [...] 2017 11:01pm betamethasone 0.001 mg/mg topical ointment (6 sources) Corticosteroid Start: 11-17-2018 End: 03-23-2019 Betamethasone [...] mL IVPB cephalexin 500 mg oral capsule (6 sources) Cephalosporin Antibacterial Start: 11-30-2017 End: 12-16-2017 [...] procedure, # 2 tab(s), Refills(s) 0, Pharmacy: [id number], 180, cm, 11/09/22 13:16:00 EDT, Height/Length Dosing, 113, kg, 11/09/22 13:16:00 EDT, Weight Dosing Start Date: 09/17/23 Status: Ordered dicloxacillin 500 mg oral capsule (6 sources) Penicillin-class Antibacterial Start: 06-01-2017 End: 08-24-2017 take 1 capsule by mouth three times daily Dicloxacillin 500 mg Capsule Discontinued 500 MG PO Three times daily June 01, 2017 12:00am August 24, 2017 9:21am doxycycline hyclate 100 mg oral capsule (6 sources) Tetracycline-class Drug Start: 03-23-2019 End: 01-02-2020 take 1 capsule by mouth twice daily Doxycycline Hyclate 100 mg capsule Discontinued 100 MG PO Twice daily 56 March 23, 2019 12:00am January 02, 2020 10:08am ferrous sulfate 325 mg oral tablet (7 sources) Start: 10-27-2022 End: 05-04-2023 take 1 tablet by mouth once daily Ferrous Sulfate 325 mg (65 mg iron) tablet Discontinued 325 MG PO Daily October 26, 2022 11:00pm May 04, 2023 11:25am Start: 03-31-2023 take 1 tablet by [facility] once daily at breakfast ferrous sulfate (IRON 325) 325 (65 Fe) MG tablet Take 1 tablet by mouth daily (with breakfast) 90 tablet 1 06/26/2022 Active gentamicin 0.001 mg/mg topic al ointment (12 sources) Start: 11-23-2017 End: 05-19-2018 Gentamicin 0.1 [...] insulin aspart, human 100 unt/ml injectable solution (11 sources) Insulin Analog Start: 12-07-2016 End: 05-19-2018 [...] Active insulin glargine 100 unt/ml injectable solution (8 sources) Insulin Analog Start: 04-13-2017 End: 06-26-2022 [...] Active Insulin Glargine (Lantus) 100 unit/mL Solution (6 sources) Start: 12-07-2016 End: 09-08-2022 inject 50 [...] (Humalog Kwikpen Insulin) 100 unit/mL Insulin Pen (4 sources) Start: 05-19-2018 End: 09-08-2022 Insulin Lispro [...] 10 Units levoFLOXacin 750 mg oral tablet (14 sources) Quinolone Antimicrobial Start: 02-13-2023 End: 05-04-2023 [...] Called to pharmacy 09/09/2021 polyethylene glycol 3350 62746 mg powder for oral solution (1 source) Osmotic Laxative Start: 06-22-2022 17 g, Oral, D AILY PRN, Starting on Wed06/22/22 at 2018, Until Discontinued, Constipation First line therapy for constipation polyethylene glycol 3350 580343 mg / potassium chloride 2970 mg / sodium bicarbonate 6740 mg / sodium chloride 5860 mg / sodium sulfate 72160 mg powder for oral solution (1 source) Osmotic Laxative Start: 06-25-2022 End: 06-25-2022 polyethylene glycol (GoLYTELY) solution 4,000 mL Start: 06-25-2022 End: 06-25-2022 polyethylene glycol (GoLYTEL Y) solution 4,000 mL rosuvastatin calcium 20 mg oral tablet (14 sources) HMG-CoA Reductase Inhibitor Start: 06-07-2016 End: 06-26-2022 take 1 tablet by mouth once daily Rosuvastatin (Crestor) 20 mg Tablet Discontinued 20 MG PO Daily December 06, 2016 11:00pm March 23, 2019 11:03am silver sulfADIAZINE 10 mg/ml topical cream (6 sources) Sulfonamide Antibacterial Start: 09-22-2018 End: 03-23-2019 Silver Sulfadiazine (Silvadene) 1 % cream Discontinued 1 APPLIC TOPICAL Daily 400 September 21, 2018 11:00pm March 23, 2019 11:03am apply a 1.5 mm thickness sodium polystyrene sulfonate 250 mg/ml oral suspension (1 source) Start: 06-22-2022 End: 06-22-2022 sodium polystyrene (KAYEXALATE) 15 GM/60ML suspension 45 g sodium zirconium cyclosilicate 58759 mg powder for oral suspension (1 source) Start: 06-23-2022 End: 06-23-2022 sodium zirconium cyclosilicate (LOKELMA) oral suspension 10 g sulfamethoxazole 800 mg / trimethoprim 160 mg oral tablet (18 sources) Dihydrofolate Reductase Inhibitor Antibacterial, Sulfonamide Antimicrobial [...] 9:21am Start: 12-07-2016 End: 12-08-2016 Bactrim Discontinued [facility] 2016 12:00am December 08, 2016 2:50pm Start: 12-07-2016 End: 12-08-2016 Bactrim Discontinued 2016 11:00pm December 08, 2016 1:50pm triamcinolone acetonide 5 mg/ml topical cream (4 sources) Corticosteroid Start: 02-07-2023 End: 05-04-2023 Triamcinolone Acetonide 0.5 % cream Discontinued 0.5 APPLIC TOPICAL Three times daily February 07, 2023 12:00am May 04, 2023 11:25am Problems Active Problems Problem Classification Problem Date Documented Date Episodic/Chronic Allergic reactions (13 sources) Urticaria; 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: [Urticaria, unspecified] Onset: 4 01-20-2024 Episodic Chronic kidney disease (20 sources) Chronic kidney disease; 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: [Chronic kidney disease, unspecified] Onset: 4 06-30-2018 Chronic Chronic ulcer of skin (20 sources) Non-pressure chronic ulcer of skin of other sites with other specified severity; 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: [Pressure ulcer of unspecified site, unspecified stage] Onset: 4 Resolved: 8 12-10-2016 Chronic Complication of device; implant or graft (12 sources) Injury of cauda equina ; 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: [...] Anemia 11-09-2022 Episodic Deficiency and other anemia (4 sources) Microcytic anemia; 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: [Iron deficiency anemia, unspecified] 02-07-2023 Episodic Diabetes mellitus with complications (20 sources) Type 2 diabetes mellitus with hyperglycemia; 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: [Diabetic foot ulcer] Onset: 2 Chronic Diabetes mellitus without complication (15 sources) Diabetes mellitus; 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: [Type 2 diabetes mellitus without complications] Onset: 2 05-06-2020 Chronic 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) Elevated white blood cell count, unspecified; 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: [Elevated white blood cell count, unspecified] Onset: 4 Chronic Disorders of lipid metabolism (20 sources) Mixed hyperlipidemia; 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: [Mixed hyperlipidemia] Onset: 6 04-25-2015 Chronic Essential hypertension (20 sources) Hypertensive disorder; 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: [Essential (primary) hypertension] Onset: 4 12-24-2016 Chronic Comment on above: d/t Vancomycin use a ffected kidneys Gastritis and duodenitis (19 sources) Chronic superficial gastritis; 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: [Chronic superficial 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] Onset: 4 04-06-2023 Chronic Genitourinary symptoms and ill-defined conditions (20 sources) Incontinence without sensory awareness; 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: [Incontinence without sensory awareness] Onset: 3 Chronic Genitourinary symptoms and ill-defined conditions (5 sources) Retention of urine; 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: [Retention of urine, unspecified] Onset: 3 Episodic Infective arthritis and osteomyelitis (except that caused by tuberculosis or sexually transmitted disease) (20 sources) Osteomyelitis of right foot; 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: [Osteomyelitis, unspecified] Onset: 7 Resolved: 8 12-28-2016 Chronic Mood disorders (20 sources) Depressive disorder; 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: [Depression] Onset: 4 [...] 05-06-2023 Episodic Other inflammatory condition of skin (18 sources) Pruritus, unspecified; 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: [Unspecified pruritic disorder] Onset: 4 Resolved: 4 11-18-2023 Episodic Other injuries and conditions due to external causes (6 sources) Injury of cauda equina ; 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: [Injury of cauda equina, subsequent encounter] 06-01-2017 Episodic Other nervous system disorders (6 sources) Acute postoperative pain; 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: [Other acute postprocedural pain] 09-04-2021 Episodic Other non-traumatic joint disorders (6 sources) Pain in right hip; 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: [Pain in joint, pelvic region and thigh] Onset: 2 Episodic Other non-traumatic joint disorders (6 sources) Hip pain; 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: [Pain in right hip] 01-27-2022 Episodic Other nutritional; endocrine; and metabolic disorders (6 sources) Obesity; 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: [Obesity, unspecified] 09-23-2017 Chronic Other nutritional; endocrine; and metabolic disorders (5 sources) Morbid obesity; 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: [Morbid (severe) obesity due to excess calories] Onset: 7 01-01-2017 Chronic Other nutritional; endocrine; and metabolic disorders (4 sources) Severe obesity; 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: [Class 2 severe obesity due to excess calories with serious comorbidity and body mass index (BMI) of 36.0 to 36.9 in adult ([facility])] Onset: 5 07-31-2024 Chronic Other screening for suspected conditions (not mental disorders or infectious disease) (4 sources) Electrocardiogram abnormal; 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: [Abnormal electrocardiogram [ECG] [EKG]] Onset: 3 Episodic Paralysis (20 sources) Cauda equina syndrome; 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: [Cauda equina syndrome] Onset: 1 04-30-2020 Chronic Peripheral and visceral atherosclerosis (4 sources) Peripheral vascular disease, unspecified; 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: [Peripheral arterial disease] 02-07-2023 Chronic Residual codes; unclassified (2 sources) Sleep apnea 11-09-2022 Chronic Residual codes; unclassified (17 sources) Obstructive sleep apnea syndrome; 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: [Obstructive sleep apnea (adult) (pediatric)] Onset: 4 04-06-2023 Chronic Residual codes; unclassified (6 sources) Pain; 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: [Pain, unspecified] 05-19-2018 Episodic Skin and subcutaneous tissue infections (20 sources) Cellulitis, unspecified; 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: [Cellulitis] Onset: 1 Resolved: 8 04-20-2019 Episodic Spondylosis; intervertebral disc disorders; other back problems (4 sources) Sacral back pain; 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: [Sacrococcygeal disorders, not elsewhere classified] 09-08-2022 Episodic Past or Other Problems Problem Classification Problem Date Documented Date Episodic/Chronic Acute and unspecified renal failure (16 sources) [id number] renal failure; 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: [Acute kidney failure, unspecified] [...] encounter] Onset: 02-25-2011 01-07-2017 Episodic Other aftercare (10 sources) Long-term current use of drug therapy; 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: [Other terminal makeup operator (current) drug therapy] Onset: 11-18-2023 11-18-2023 Episodic Other aftercare (5 sources) Patient encounter status; 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: [Other care home (current) drug therapy] Onset: 11-18-2023 11-18-2023 Episodic Other skin disorders (17 sources) Vesicular eczema; 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: [Dyshidrosis [pompholyx]] Onset: 04-06-2023 04-06-2023 Episodic Septicemia (except in labor) (5 sources) Sepsis due to methicillin resistant Staphylococcus aureus; 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: [Sepsis due to Methicillin resistant Staphylococcus aureus] Onset: 09-09-2016 Resolved: 05-26-2017 05-26-2017 Episodic Urinary tract infections (17 sources) Recurrent urinary tract infection; 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: [Urinary tract infection, site not specified] Onset: 04-06-2023 04-06-2023 Episodic Results Test Name Value Interpretation Reference Range Facility ALL CBC WITH AUTO DIFFon BASOPHILS ABSOLUTE AUTO 0.1 [facility] Basophils/100 WBC (Bld) 0.4 % 0.2 - 2.0 % [facility] Eosinophils/100 WBC (Bld) 5.1 % 0.9 - 7.0 % [facility] Erythrocyte distribution width (RBC) [Ratio] 15.3 % High 11.0 - 15.0 % [facility] Hematocrit (Bld) [Volume fraction] 22.9 % Critically low 42.0 - 54.0 % [facility] Comment on above: RESULTS CALLED TO CARLOS FREED RN Hemoglobin (Bld) [Mass/Vol] 6.9 g/dL Critically low 14.0 - 18.0 g/dL [facility] Comment on above: RESULTS CALLED TO CARLOS FREED RN IMMATURE GRANULOCYTES ABS AUTO 0.05 High [facility] Immature granulocytes/100 WBC (Bld) 0.4 % 0.0 - 0.5 % [facility] Interpretation and review of laboratory results Abnormal [facility] LYMPHOCYTES ABSOLUTE AUTO 1.3 [facility] Lymphocytes/100 WBC (Bld) 10.2 % Low 20.5 - 60.0 % [facility] MCH (RBC) [Entitic mass] 24.7 pg Low 25.9 - 34.0 pg [facility] MCHC (RBC) [Mass/Vol] 30.1 g/dL 29.9 - 35.2 g/dL [facility] MCV (RBC) [Entitic vol] 82.1 fL 80.0 - 94.0 fL [facility] MONOCYTES ABSOLUTE AUTO 1.1 High [facility] Monocytes/100 WBC (Bld) 8.1 % 1.7 - 12.0 % [facility] NEUTROPHILS ABSOLUTE AUTO 9.9 High [facility] Neutrophils/100 WBC (Bld) 75.8 % High 43.0 - 75.0 % [facility] Platelet mean volume (Bld) [Entitic vol] 8.9 fL Low 9.5 - 13.5 fL [facility] TBH EO # 0.7 [facility] PLT [address] [facility] RBC 2.79 Low [facility] WBC 13.1 High [facility] ALL CBC WITH AUTO DIFFon BASOPHILS ABSOLUTE AUTO 0.1 [facility] Basophils/100 WBC (Bld) 0.6 % 0.2 - 2.0 % [facility] Eosinophils/100 WBC (Bld) 8.8 % High 0.9 - 7.0 % [facility] Erythrocyte distribution width (RBC) [Ratio] 14 % 11.0 - 15.0 % [facility] Hematocrit (Bld) [Volume fraction] 26.9 % Low 42.0 - 54.0 % [facility] Hemoglobin (Bld) [Mass/Vol] 8.1 g/dL Low 14.0 - 18.0 g/dL [facility] IMMATURE GRANULOCYTES ABS AUTO 0.12 High [facility] Immature granulocytes/100 WBC (Bld) 0.9 % High 0.0 - 0.5 % [facility] Interpretation and review of laboratory results Abnormal [facility] LYMPHOCYTES ABSOLUTE AUTO 1.6 [facility] Lymphocytes/100 WBC (Bld) 12.2 % Low 20.5 - 60.0 % [facility] MCH (RBC) [Entitic mass] 24.9 pg Low 25.9 - 34.0 pg [facility] MCHC (RBC) [Mass/Vol] 30.1 g/dL 29.9 - 35.2 g/dL [facility] MCV (RBC) [Entitic vol] 82.8 fL 80.0 - 94.0 fL [facility] MONOCYTES ABSOLUTE AUTO 1 High [facility] Monocytes/100 WBC (Bld) 7.3 % 1.7 - 12.0 % [facility] NEUTROPHILS ABSOLUTE AUTO 9.3 High [facility] Neutrophils/100 WBC (Bld) 70.2 % 43.0 - 75.0 % [facility] Platelet mean volume (Bld) [Entitic vol] 8.9 fL Low 9.5 - 13.5 fL [facility] TBH EO # 1.2 High [facility] TB PLT [address] [facility] RBC 3.25 Low [facility] WBC 13.2 High [facility] ALL SED RATEon 02-14-2024 Interpretation and review of laboratory results Abnormal [facility] SED RATE 67 High NINF [facility]27 Anion gap [Moles/Vol] 9.9 mmol/L Normal 6.0-15.0 [facility] Group Comment on above: Performed By: #### F E PRO, B12, ESR, CRP, CBC, BMP #### [facility] [address] Calcium [Mass/Vol] 7.6 mg/dL Low 8.6-10.3 [facility] Comment on above: Performed By: #### F E PRO, B12, ESR, CRP, CBC, BMP #### [facility] [address] Chloride [Moles/Vol] 106 mmol/L Normal 98-107 [facility] Comment on above: Performed By: #### F E PRO, B12, ESR, CRP, CBC, BMP #### [facility] [address] CO2 [Moles/Vol] 26.1 mmol/L Normal 21.0-31.0 [facility] Comment on above: Performed By: #### F E PRO, B12, ESR, CRP, CBC, BMP #### [address] Creatinine [Mass/Vol] 1.59 mg/dL High 0.70-1.30 [facility] Comment on above: Performed By: #### F E PRO, B12, ESR, CRP, CBC, BMP #### [place] [address] [place] GFR/1.73 sq M.predicted MDRD (S/P/Bld) [Vol rate/Area] 48.779 mL/min/{1.73_m2} Normal [facility] Comment on above: Performed By: #### F E PRO, B12, ESR, CRP, CBC, BMP #### [address] Glucose [Mass/Vol] 128 mg/dL High 70-100 [facility] Comment on above: Result Comment: [place] Glucose Reference Range is dependent on time and content of last meal. Glucose of more than 200 mg/dL in a nonstressed, ambulatory subject supports the diagnosis of Diabetes Mellitus. ADA recommended reference range Performed By: #### F E PRO, B12, ESR, CRP, CBC, BMP #### [place] [address] [place] Potassium [Moles/Vol] 4.0 mmol/L Normal 3.5-5.1 [facility] Comment on above: Performed By: #### F E PRO, B12, ESR, CRP, CBC, BMP #### [facility] [address] Sodium [Moles/Vol] 138 mmol/L Normal 136-145 [facility] Comment on above: Performed By: #### F E PRO, B12, ESR, CRP, CBC, BMP #### [facility] [address] Urea nitrogen [Mass/Vol] 24 mg/dL Normal 7-25 [facility] Comment on above: Performed By: #### F E PRO, B12, ESR, CRP, CBC, BMP #### [facility] [address] Basophils Auto (Bld) [#/Vol] Ordered By: Nina Aleta on 02-08-2024 Basophils (Bld) [#/Vol] Automated basophil count 0.0-0.2 [facility] Basophils/100 WBC Auto (Bld) Ordered By: Nina Aleta on 02-08-2024 Basophils/100 WBC (Bld) Automated basophil % . [facility] C reactive protein [Mass/vol ume] in Serum or PlasmaOrdered By: Nina Aleta on 02-08-2024 CRP [Mass/Vol] C reactive protein [Mass/volume] in Serum or Plasma High 0.0-0.5 [facility] C-Reactive Proteinon 024 C-Reactive Protein 10.7 mg/dL High 0.0-0.5 [facility] Comment on above: Performed By: #### F E PRO, B12, ESR, CRP, CBC, BMP #### [facility] [address] Calcium [Mass/volume] in Ser um or PlasmaOrdered By: Nina Aleta on 02-08-2024 Calcium [Mass/Vol] Calcium [Mass/volume ] in Serum or Plasma Low 8.6-10.3 [facility] Carbon dioxide, total [Moles /volume] in Serum or PlasmaOrdered By: Nina River on 02-08-2024 CO2 [Moles/Vol] Carbon dioxide, tota l [Moles/volume] in Serum or Plasma 21.0-31.0 [facility] Chloride [Moles/volume] in S tremayne or PlasmaOrdered By: Ninabharath River on 02-08-2024 Chloride [Moles/Vol] Chloride [Moles/vol ume] in Serum or Plasma 98-107 [facility] Complete Blood Count Auto Di ffon 02-08-2024 Basophils (Bld) [#/Vol] 0.0 10*3/uL Normal 0.0-0.2 [facility] Comment on above: Performed By: #### F E PRO, B12, ESR, CRP, CBC, BMP #### [address] Basophils/100 WBC (Bld) 0.4 % Normal . [facility] Comment on above: Performed By: #### F E PRO, B12, ESR, CRP, CBC, BMP #### [address] Eosinophils (Bld) [#/Vol] 0.2 10*3/uL Normal 0.0-0.45 [facility] Comment on above: Performed By: #### F E PRO, B12, ESR, CRP, CBC, BMP #### [address] Eosinophils/100 WBC (Bld) 2.4 % Normal . [facility] Comment on above: Performed By: #### F E PRO, B12, ESR, CRP, CBC, BMP #### [address] Erythrocyte distribution width (RBC) [Ratio] 15.2 % High 12.0-14.8 [facility] Comment on above: Performed By: #### F E PRO, B12, ESR, CRP, CBC, BMP #### [address] Hematocrit (Bld) [Volume fraction] 23.1 % Low 38.8-50.0 [facility] Comment on above: Performed By: #### F E PRO, B12, ESR, CRP, CBC, BMP #### [address] Hemoglobin (Bld) [Mass/Vol] 7.8 g/dL Low 13.0-17.0 [facility] Comment on above: Performed By: #### F E PRO, B12, ESR, CRP, CBC, BMP #### [address] Lymphocytes (Bld) [#/Vol] 0.7 10*3/uL Low 1.00-4.8 [facility] Comment on above: Performed By: #### F E PRO, B12, ESR, CRP, CBC, BMP #### [address] Lymphocytes/100 WBC (Bld) 7.0 % Normal . [facility] Comment on above: Performed By: #### F E PRO, B12, ESR, CRP, CBC, BMP #### [address] MCH (RBC) [Entitic mass] 26.8 pg Low 27.5-35.2 [facility] Comment on above: Performed By: #### F E PRO, B12, ESR, CRP, CBC, BMP #### [address] MCV (RBC) [Entitic vol] 79.5 fL Low 83.5-101 [facility] Comment on above: Performed By: #### F E PRO, B12, ESR, CRP, CBC, BMP #### [address] Mean Corpuscular HGB Conc 33.7 g/dL Normal 32.5-35.6 [facility] Comment on above: Performed By: #### F E PRO, B12, ESR, CRP, CBC, BMP #### [address] Monocytes (Bld) [#/Vol] 0.5 10*3/uL Normal 0.0-0.8 [facility] Comment on above: Performed By: #### F E PRO, B12, ESR, CRP, CBC, BMP #### [address] Monocytes/100 WBC (Bld) 4.8 % Normal . [facility] Comment on above: Performed By: #### F E PRO, B12, ESR, CRP, CBC, BMP #### [address] Neutrophils (Bld) [#/Vol] 9.0 10*3/uL High 1.8-7.7 [facility] Comment on above: Performed By: #### F E PRO, B12, ESR, CRP, CBC, BMP #### [address] Neutrophils/100 WBC (Bld) 85.4 % Normal . [facility] Comment on above: Performed By: #### F E PRO, B12, ESR, CRP, CBC, BMP #### [address] NRBC% 0.0 /100{WBC} Normal 0-0.5 [facility] Comment on above: Performed By: #### F E PRO, B12, ESR, CRP, CBC, BMP #### [address] Platelet mean volume (Bld) [Entitic vol] 6.7 fL Normal 6.6-10.1 [facility] Comment on above: Performed By: #### F E PRO, B12, ESR, CRP, CBC, BMP #### [place] [address] [place] Platelets (Bld) [#/Vol] 220 10*3/uL Normal 150-450 [facility] Comment on above: Performed By: #### F E PRO, B12, ESR, CRP, CBC, BMP #### [address] RBC (Bld) [#/Vol] 2.91 10*6/uL Low 3.90-5.60 [facility] Comment on above: Performed By: #### F E PRO, B12, ESR, CRP, CBC, BMP #### [address] WBC (Bld) [#/Vol] 10.5 10*3/uL Normal 4.1-10.5 [facility] Comment on above: Performed By: #### F E PRO, B12, ESR, CRP, CBC, BMP #### [address] Creatinine [Mass/volume] in Serum or PlasmaOrdered By: Nina Aleta on 02-08-2024 Creatinine [Mass/Vol] Creatinine [Mass/v olume] in Serum or Plasma High 0.70-1.30 [facility] Eosinophils Auto (Bld) [#/Vo l]Ordered By: Nina Aleta on 02-08-2024 Eosinophils (Bld) [#/Vol] Automated eosinophil count 0.0-0.45 [facility] Eosinophils/100 WBC Auto (Bl d)Ordered By: Nina Aleta on 02-08-2024 Eosinophils/100 WBC (Bld) Automated eosinophil % . [facility] Erythrocyte Sedimentation Ra мария 02-08-2024 ESR (Bld) [Velocity] 44 mm/h High 0-19 [facility] Comment on above: Result Comment: PERF ORMED BY: [place] [address] PATHOLOGIST CARBOY FILLER FARRAH PAUL M.D. Performed By: #### F E PRO, B12, ESR, CRP, CBC, BMP #### [address] Erythrocyte distribution wid th Auto (RBC) [Ratio]Ordered By: Nina Aleta on 02-08-2024 Erythrocyte distribution width (RBC) [Ratio] Erythrocyte distribution width [Ratio] by Automated count High 12.0-14.8 [facility] Erythrocyte sedimentation ra te by Photometric methodOrdered By: Nina Aleta on 02-08-2024 ESR Photometric method (Bld) [Velocity] Erythrocyte sedimentation rate by Photometric method High 0-19 [facility] FE PROon 02-08-2024 % Iron Saturation Not performed Normal 20-50 [facility] Comment on above: Performed By: #### F E PRO, B12, ESR, CRP, CBC, BMP #### [facility] [address] Ferritin [Mass/Vol] 422.9 ng/mL High 23.9-336.2 [facility] Comment on above: Performed By: #### F E PRO, B12, ESR, CRP, CBC, BMP #### [facility] [address] Iron [Mass/Vol] ug/dL Low 50-212 [facility] Comment on above: Performed By: #### F E PRO, B12, ESR, CRP, CBC, BMP #### [facility] [address] Total Iron Binding Capacity 175 ug/dL Low 255-450 [facility] Comment on above: Performed By: #### F E PRO, B12, ESR, CRP, CBC, BMP #### [facility] [address] [place] [id number] [place] Transferrin [Mass/Vol] 125 mg/dL Low 203-362 [facility] Comment on above: Performed By: #### F E PRO, B12, ESR, CRP, CBC, BMP #### [facility] [address] [place] [id number] [facility] Ferritin [Mass/volume] in Se rum or PlasmaOrdered By: Nina River on 02-08-2024 Ferritin [Mass/Vol] Ferritin [Mass/volum e] in Serum or Plasma High 23.9-336.2 [facility] Glucose [Mass/volume] in Ser um or PlasmaOrdered By: Nina River on 02-08-2024 Glucose [Mass/Vol] Glucose [Mass/volume ] in Serum or Plasma High 70-100 [facility] Comment on above: ADA recommended refe rence rangeRandom Glucose Reference Range is dependent on time and content of last meal. Glucose of more than 200 mg/dL in a nonstressed, ambulatory subject supports the diagnosis of Diabetes Mellitus. Hematocrit Auto (Bld) [Volum e fraction]Ordered By: Nina River on 02-08-2024 Hematocrit (Bld) [Volume fraction] Hematocrit [Volume Fraction] of Blood by Automated count Low 38.8-50.0 [facility] Hemoglobin [Mass/volume] in BloodOrdered By: Nina River on 02-08-2024 Hemoglobin (Bld) [Mass/Vol] Hemoglobin [Mass/volume] in Blood Low 13.0-17.0 [facility] Iron [Mass/volume] in Serum or PlasmaOrdered By: Ninastefan River on 02-08-2024 Iron [Mass/Vol] Iron [Mass/volume] i n Serum or Plasma Low 50-212 [facility] Leukocytes [#/volume] correc shreya for nucleated erythrocytes in Blood by Automated counOrdered By: Nina River on 02-08-2024 WBC corrected for nucl RBC Auto (Bld) [#/Vol] Leukocytes [#/volume] corrected for nucleated erythrocytes in Blood by Automated coun 4.1-10.5 [facility] Lymphocytes Auto (Bld) [#/Vo l]Ordered By: Nina River on 02-08-2024 Lymphocytes (Bld) [#/Vol] Lymphocytes [#/volume] in Blood by Automated count Low 1.00-4.8 [facility] Lymphocytes/100 WBC Auto (Bl d)Ordered By: Nina River on 02-08-2024 Lymphocytes/100 WBC (Bld) Lymphocytes/100 leukocytes in Blood by Automated count . [facility] MCH Auto (RBC) [Entitic mass ]Ordered By: Nina Aleta on 02-08-2024 MCH (RBC) [Entitic mass] MCH [Entitic mass] by Automated count Low 27.5-35.2 [facility] MCHC Auto (RBC) [Mass/Vol]Or dered By: Nina Aleta on 02-08-2024 MCHC (RBC) [Mass/Vol] MCHC [Mass/volume] by Automated count 32.5-35.6 [facility] MCV Auto (RBC) [Entitic vol] Ordered By: Nina Aleta on 02-08-2024 MCV (RBC) [Entitic vol] MCV [Entitic volume] by Automated count Low 83.5-101 [facility] Monocytes Auto (Bld) [#/Vol] Ordered By: Ninastefan River on 02-08-2024 Monocytes (Bld) [#/Vol] Automated blood monocyte count 0.0-0.8 [facility] Monocytes/100 WBC Auto (Bld) Ordered By: Ninastefan iRver on 02-08-2024 Monocytes/100 WBC (Bld) Automated monocyte % . [facility] Neutrophils Auto (Bld) [#/Vo l]Ordered By: Nina River on 02-08-2024 Neutrophils (Bld) [#/Vol] Neutrophils [#/volume] in Blood by Automated count High 1.8-7.7 [facility] Neutrophils/100 WBC Auto (Bl d)Ordered By: Nina River on 02-08-2024 Neutrophils/100 WBC (Bld) Automated neutrophil % . [facility] No Panel InformationOrdered By: Nina River on 02-08-2024 Estimated GFR (CKD-EPI) 48.779 mL/Min [facility] Creatinine Clearance (Chem N/A [facility] Nucleated erythrocytes [Pres ence] in Blood by Automated countOrdered By: Nina River on 02-08-2024 Nucleated RBC Auto Ql (Bld) Nucleated erythrocytes [Presence] in Blood by Automated count 0-0.5 [facility] Platelet mean volume Auto (B ld) [Entitic vol]Ordered By: Nina River on 02-08-2024 Platelet mean volume (Bld) [Entitic vol] Platelet mean volume [Entitic volume] in Blood by Automated count 6.6-10.1 [facility] Platelets Auto (Bld) [#/Vol] Ordered By: Nina River on 02-08-2024 Platelets (Bld) [#/Vol] Platelets [#/volume] in Blood by Automated count 150-450 [facility] Potassium [Moles/volume] in Serum or PlasmaOrdered By: Nina River on 02-08-2024 Potassium [Moles/Vol] Potassium [Moles/v olume] in Serum or Plasma 3.5-5.1 [facility] RBC Auto (Bld) [#/Vol]Ordere d By: Nina River on 02-08-2024 RBC (Bld) [#/Vol] Erythrocytes [#/volu me] in Blood by Automated count Low 3.90-5.60 [facility] Serum or plasma anion gap de terminationOrdered By: Nina River on 02-08-2024 Anion gap [Moles/Vol] Serum or plasma an ion gap determination 6.0-15.0 [facility] Serum or plasma iron binding capacity measurement (mass/volume)Ordered By: Nina River on 02-08-2024 Iron binding capacity [Mass/Vol] Iron binding capacity [Mass/volume] in Serum or Plasma Low 255-450 [facility] Serum or plasma iron saturat ion measurement (mass fraction)Ordered By: Nina River on 02-08-2024 Iron saturation [Mass fraction] Iron saturation [Mass Fraction] in Serum or Plasma [facility] Comment on above: Test not performed Sodium [Moles/volume] in Ser um or PlasmaOrdered By: Nina River on 02-08-2024 Sodium [Moles/Vol] Sodium [Moles/volume ] in Serum or Plasma 136-145 [facility] Transferrin [Mass/volume] in Serum or PlasmaOrdered By: Nina River on 02-08-2024 Transferrin [Mass/Vol] Transferrin [Mass/volume] in Serum or Plasma Low 203-362 [facility] Urea nitrogen [Mass/volume] in Serum or PlasmaOrdered By: Nina River on 02-08-2024 Urea nitrogen [Mass/Vol] Urea nitrogen [Mass/volume] in Serum or Plasma 7-25 [facility] Vitamin B12on 02-08-2024 Cobalamin (Vitamin B12) [Mass/Vol] 701 pg/mL Normal 180-914 [facility] Comment on above: Result Comment: PERF ORMED BY: [facility] [address] [place] [address] PATHOLOGIST CARBOY FILLER FARRAH PAUL M.D. Performed By: #### F E PRO, B12, ESR, CRP, CBC, BMP #### [facility] [address] Vitamin B12 ser/plasOrdered By: Nina River on 02-08-2024 Cobalamin (Vitamin B12) [Mass/Vol] Vitamin B12 ser/plas 180-914 [facility] WBC Auto (Bld) [#/Vol]Ordere d By: Nina River on 02-08-2024 WBC (Bld) [#/Vol] Leukocytes [#/volume ] in Blood by Automated count 4.1-10.5 [facility] ALL CBC WITH AUTO DIFFon BASOPHILS ABSOLUTE AUTO 0.0 [facility] Basophils/100 WBC (Bld) 0.3 % 0.2 - 2.0 % [facility] Eosinophils/100 WBC (Bld) 6.4 % 0.9 - 7.0 % [facility] Erythrocyte distribution width (RBC) [Ratio] 16.8 % High 11.0 - 15.0 % [facility] Hematocrit (Bld) [Volume fraction] 29.4 % Low 42.0 - 54.0 % [facility] Hemoglobin (Bld) [Mass/Vol] 9.0 g/dL Low 14.0 - 18.0 g/dL [facility] IMMATURE GRANULOCYTES ABS AUTO 0.04 High [facility] Immature granulocytes/100 WBC (Bld) 0.4 % 0.0 - 0.5 % [facility] Interpretation and review of laboratory results Abnormal [facility] LYMPHOCYTES ABSOLUTE AUTO 1.8 [facility] Lymphocytes/100 WBC (Bld) 17.7 % Low 20.5 - 60.0 % [facility] MCH (RBC) [Entitic mass] 25.3 pg Low 25.9 - 34.0 pg [facility] MCHC (RBC) [Mass/Vol] 30.6 g/dL 29.9 - 35.2 g/dL [facility] MCV (RBC) [Entitic vol] 82.6 fL 80.0 - 94.0 fL [facility] MONOCYTES ABSOLUTE AUTO 0.7 [facility] Monocytes/100 WBC (Bld) 6.7 % 1.7 - 12.0 % [facility] NEUTROPHILS ABSOLUTE AUTO 7.1 High [facility] Neutrophils/100 WBC (Bld) 68.5 % 43.0 - 75.0 % [facility] Platelet mean volume (Bld) [Entitic vol] 8.8 fL Low 9.5 - 13.5 fL [facility] TBH EO # 0.7 [facility] PLT 280 [facility] TB RBC 3.56 Low [facility] WBC 10.3 [facility] CLINISYNC [facility] Reminderson 11-15-2023 Reminders Reminders From: Ama Arteaga To: [place] - Recalls [place]; Sent: 11/15/2023 16:29:55 EDT Show up: 08/27/2024 16:29:00 EDT Subject: Cysto/UD Due Date/Time: 09/18/2024 16:29:00 EDT Reminder/Recall Patient is due in October 2024 for 1 year cysto/UD w Duarte sounds Normal [facility] BONE MARROWon 10-11-2023 BONE MARROW SEE SEPARATE REPORT Normal [facility] Comment on above: Result Comment: REVI EWED BY SOLEDAD HUYNH M.D. Performed By: #### E XHR, 39950-0, MDSDF #### [facility] ([id number]) [address] [place] [id number] #### 76425-0, BONMAR #### [facility] ([id number]) [address] [place] [address] CBC AND AUTO DIFFon 10-11-19 24 ABSOLUTE BASOPHIL 0.0 X10E9/L Normal 0.0-0.2 [facility] Comment on above: Performed By: #### P INR, CBCA #### [facility] ([id number]) [address] [place] [address] ABSOLUTE NEUTROPHIL 8.0 X10E9/L High 1.5-6.6 [facility] Comment on above: Performed By: #### P INR, CBCA #### [facility] ([id number]) [address] [place] [address] Basophils/100 WBC (Bld) 0.3 % Normal [facility] Comment on above: Performed By: #### P INR, CBCA #### [facility] ([id number]) [address] [place] [address] Eosinophils (Bld) [#/Vol] 0.5 10*3/uL High 0.0-0.4 [facility] Comment on above: Performed By: #### P INR, CBCA #### [facility] ([id number]) [address] [place] [address] Eosinophils/100 WBC (Bld) 4.4 % Normal [facility] Comment on above: Performed By: #### P INR, CBCA #### [facility] ([id number]) [address] [place] [address] Erythrocyte distribution width (RBC) [Ratio] 16.8 % High 11.5-15.0 [facility] Comment on above: Performed By: #### P INR, CBCA #### [facility] ([id number]) [address] [place] [address] Hematocrit (Bld) [Volume fraction] 20.1 % Low 39-49 [facility] Comment on above: Performed By: #### P INR, CBCA #### [facility] ([id number]) [address] [place] [address] Hemoglobin (Bld) [Mass/Vol] 6.6 g/dL Critically low 13.0-17.0 [facility] Comment on above: Performed By: #### P INR, CBCA #### [facility] ([id number]) [address] [place] [address] Lymphocytes (Bld) [#/Vol] 1.4 10*3/uL Normal 1.0-3.5 [facility] Comment on above: Performed By: #### P INR, CBCA #### [facility] ([id number]) [address] [place] [address] Lymphocytes/100 WBC (Bld) 13.0 % Normal [facility] Comment on above: Performed By: #### P INR, CBCA #### [facility] ([id number]) [address] [place] [address] MCH (RBC) [Entitic mass] 24.7 pg Low 27-34 [facility] Comment on above: Performed By: #### P INR, CBCA #### [facility] ([id number]) [address] [place] [address] MCHC (RBC) [Mass/Vol] 32.6 g/dL Normal 32-36 [facility] Comment on above: Performed By: #### P INR, CBCA #### [facility] ([id number]) [address] [place] [address] MCV (RBC) [Entitic vol] 76 fL Low 80-100 [facility] Comment on above: Performed By: #### P INR, CBCA #### [facility] ([id number]) [address] [place] [address] Monocytes (Bld) [#/Vol] 0.9 10*3/uL Normal 0-0.9 [facility] Comment on above: Performed By: #### P INR, CBCA #### [facility] ([id number]) [address] [place] [address]67 Monocytes/100 WBC (Bld) 8.2 % Normal [facility] Comment on above: Performed By: #### P INR, CBCA #### [facility] ([id number]) [address] [place] [address] Neutrophils/100 WBC (Bld) 74.1 % Normal [facility] Comment on above: Performed By: #### P INR, CBCA #### [facility] ([id number]) [address] [place] [address] Platelet mean volume (Bld) [Entitic vol] 7.0 fL Normal 7-12 [facility] Comment on above: Performed By: #### P INR, CBCA #### [facility] ([id number]) [address] [place] [address] Platelets (Bld) [#/Vol] 371 10*3/uL Normal 150-450 [facility] Comment on above: Performed By: #### P INR, CBCA #### [facility] ([id number]) [address] [place] [address] RBC COUNT 2.66 X10E12/L Low 4.10-5.70 [facility] Comment on above: Performed By: #### P INR, CBCA #### [facility] ([id number]) [address] [place] [address] WBC (Bld) [#/Vol] 10.8 10*3/uL Normal 4.0-11.0 [facility] Comment on above: Performed By: #### P INR, CBCA #### [facility] ([id number]) [address] [place] [address] DNA and RNA Extract and Hold on 10-11-2023 DNA and RNA Extract and Hold SEE COMMENTS 10/14/2023 08:52 AM Normal [facility] Comment on above: Result Comment: NOTE Test [...] [facility]'s test catalog, please contact [facility] at [phone]. Method summary: DNA and RNA were extracted from the received specimen and stored at -80 C. This test was developed and its performance characteristics determined by [facility] in a manner consistent with CLIA requirements. This test has not been cleared or approved by the U.S. Food and Drug Administration. Test Performed by: [address] [address] Pharmacist Technician: Rosie Ruby Ph.D.; CLIA# [id number] Performed By: #### Luciana MORILLO, 26609-5, MDSMARYANN #### [facility] ([id number]) [address] [place] [address] #### 05921-4, PENNY #### [facility] ([id number]) [address] [place] [address] Flow cytometry specialist re view Álvaro (Unsp spec) [Interp]on 10-11-2023 FLOW CYTOMETRY BM SEE SEPARATE REPORT, REVIEWED BY PATHOLOGIST [facility] Comment on above: Performed By: #### Luciana MORILLO, 39610-7, MDSDF #### [facility] ([id number]) [address] [place] [address] #### 24648-7, PENNY #### [facility] ([id number]) [address] [place] [address] IR BX AND ASP BONE MARROW SN [...] on the left iliac bone using an Mbite powered bone marrow biopsy system. The bone [...] Guerrero MD on 10/11/2023 9:49 AM Normal [facility] Karyotype Nom (BM)on 024 CHROMOSOME BONE MARROW SEE COMMENTS 10/19/2023 02:37 PM Normal [facility] Comment on above: Result Comment: NOTE Test Result Flag Unit RefValue -- Chromosomes, Hematologic, BM Result Summary Normal Interpretation See Note No clonal abnormality was apparent. Since this conventional chromosome study was successful, MDS, Diag FISH was cancelled per lab protocol (Elder Christie et al., [facility], 146:86-94, 2016; [facility] MDS Algorithm: www.[email or web address]/it-mmfiles/Myelodysplastic_Syndrome_G uideline_to_Diagnosis_and_Follow-up.pdf). Result 46,XY[20] Reason for Referral leukocytosis [...] of the testing process was performed at [facility] site [id number]. Released By Tanvi Loo M.D. Test Performed by: [facility] [place] [address] Pharmacist Technician: Rosie Ruby Ph.D.; CLIA# [id number] Performed By: #### E XHR, 08322-8, MDSDF #### [facility] ([id number]) [address] [place] [address] #### 02703-0, PENNY #### [facility] ([id number]) [address] [place] [address], [address] [place] [address] MYELODYSPLASTIC SYNDROME (MD Jack),DIAGNOSTIC FISH, VARIESon 10-11-2023 MYELODYSPLASTIC SYNDROME (MDS),DIAGNOSTIC FISH, VARIES SEE COMMENTS 10/22/2023 08:45 AM Normal [facility] Comment on above: Result Comment: NOTE Test Result Flag Unit RefValue -- MDS, Diagnostic FISH Interpretation TNP MDS, Diagnostic FISH was cancelled on 10/22/2023 at 08:41; Based on other test results additional testing not required. MDS FISH order was cancelled per laboratory protocol (He et al., Amer J Clin Pathol 146:86-94, 2016; [facility] MDS Algorithm: www.[facility].com/it-mmfiles/Myelodysplastic_S yndrome_Guideline_ to_Diagnosis_and_Follow-up.pdf) with Probes -RPN1(G)/MECOM(R), -TP53(R)/D17Z1(G), -D8Z2(G)/MYC(R), -A23H653(R)/20QTER(G), -F8M807(G)/EGR1(R), -D7Z1(G)/D4C182(R) Test Performed by: [place] [address] Pharmacist Technician: Rosie Ruby Ph.D.; CLIA# [id number] Performed By: #### E XHR, 74625-4, MDSDF #### [facility] ([id number]) [address] [place] [address] #### 59027-1, BONMAR #### [facility] ([id number]) [address] [place] [address], [address] [place] [address] PROTIME AND INRon 10-11-2023 INR Coag (PPP) [Relative time] 1.3 {INR} High 0.8-1.1 [facility] Comment on above: Performed By: #### P INR, CBCA #### [facility] ([id number]) [address] [place] [address] PT Coag (PPP) [Time] 14.9 s High 9.8-13.2 [facility] Comment on above: Result Comment: NEW REFERENCE RANGE Performed By: #### P INR, CBCA #### [facility] ([id number]) [address] [facility] [place] [address] Surgical Pathologyon 024 Surgical Pathology Normal [facility] Comment on above: Result Comment: [facility] [address] [place] [address] Bone Marrow Consultation Patient Name:GANGA STINSON:1960 (Age: 63)Gender:MTaken:10/11/2023eported:10/14/2023hysician(s):Nina [place] ([phone])Copy To:Khadar Guerrero M.D. Rec. #:[id number]: #[id number] Final Pathologic Diagnosis Bone marrow, aspiration and [...] most likely reactive. Report Electronically Signed Out mackenzie/10/14/2023Soledad uHynh MD Flow Cytometry-Surg/BM/NG Date Reported: 10/14/2023 Normal marrow immunophenotyping results. Flow cytometric analysis of the marrow aspirate cells demonstrates maturing hematopoietic elements. Blasts are not increased on CD45/side scatter analysis or CD34 staining. No aberrant patterns of antigen acquisition are identified on maturing myeloid cells. [place] on the lymphoid population demonstrates a mixed population of phenotypically unremarkable T-cells, polyclonal B-cells, and natural killer cells, without a detectable monoclonal population. No monotypic plasma cell population is identified. Immunophenotyping antibodies tested: CD2, CD3, CD4, CD5, CD7, CD8, CD10, CD13, CD16, CD19, CD20 , CD23, CD33, CD34, CD38, CD43, CD45, CD56, CD117, CD123, CD138, Klein, Lambda. Cytoplasmic Klein/CD38, Cytoplasmic Lambda/CD38, and intrinsic VS38 Immunophenotyping Comment: Immunophenotyping has been used in this diagnostic evaluation. This test was developed and its performance characteristics determined by the [facility]. It has not been [...] Out Soledad Huynh MD Interpretation performed at [facility], [address] [place] [address], License number: [id number]. Clinical History Leukocytosis. Gross Description 1. Received in B plus fixative labeled ALLOWAY, clot is a friable portion of hemorrhagic material, 2.2 x 1.0 x 0.4 cm in aggregate. The specimen is submitted entirely in a single cassette. (1, ns, [id number], m1) JKH 2. Received in B plus fixative labeled ALLOWAY, core is a pale osborne-pardo cylindrical segment of bone with adherent hemorrhagic material, 1.0 cm in length and 0.2 cm in diameter. The specimen is submitted entirely in a single cassette following a period of decalcification in Rapid-Delbert Immuno. (1, ns, [id number], m1) LADONNA Comment: Per epic IR procedure [...] for Procedure/Surger yon 09-22-2023 Consent for Procedure/Surgery [id number]#1.00TIFF Normal [facility] Retail - Clinical Noteon Retail - Clinical Note [id number]#1.00TIFF Normal [facility] Consent for Procedure/Surger yon 06-14-2023 Consent for Procedure/Surgery [id number]#1.00TIFF [facility] Glucose Glucometer (BldC) [M ass/Vol]Ordered By: Jonathan Bah on 06-04-2023 Glucose [Mass/Vol] 134 mg/dL [facility] Comment on above: Random Glucose Refer ence Range is dependent on time and content of last meal. Glucose of more than 200 mg/dL in a nonstressed, ambulatory subject supports the diagnosis of Diabetes Mellitus. Gram stain for investigation of transfusion reactionOrdered By: Jonathan Bah on 06-04-2023 Microscopic observation Gram stain Nom (Unsp spec) Prevotella disiens [facility] Cult,Urineon 09-26-2022 Cult,Urine Specimen Description .CLEAN CATCH URINE Culture NO SIGNIFICANT GROWTH Report Status FINAL 09/26/2022 Normal [facility] Comment on above: Performed By: #### C MPX, CDP #### [facility] [address] [place], [place] [address] Pharmacist Technician: Khadar Tang MD US RENAL COMPLETEon [...] Alexander Mcclain DO 09/19/22 Final result Normal [facility] Unremarkable ultraso und of the kidneys and urinary bladder. [facility] EXAMINATION: RETROPERITONEAL ULTRASOUND OF THE KIDNEYS [...] bladder. No significant post void residual. [facility] Alexander Mcclain DO - 09/19/2022 EXAMINATION: [...] Anion gap [Moles/Vol] 10 mmol/L Normal 9-17 [facility] Comment on above: Performed By: #### B MP #### [facility] [address] [place] 6366183 Pharmacist Technician: Khadar Tang MD BUN/CRE Ratio 26 High 9-20 [facility] Comment on above: Performed By: #### B MP #### [facility] [address] [place] 5217183 Pharmacist Technician: Khadar Tang MD Calcium [Mass/Vol] 9.3 mg/dL Normal 8.6-10.4 [facility] Comment on above: Performed By: #### B MP #### [facility] [address] [place] [address] Pharmacist Technician: Khadar Tang MD Chloride [Moles/Vol] 105 mmol/L Normal 98-107 [facility] Comment on above: Performed By: #### B MP #### [facility] [address] [place] [place] [address] Pharmacist Technician: Khadar Tang MD CO2 [Moles/Vol] 22 mmol/L Normal 20-31 [facility] Comment on above: Performed By: #### B MP #### [facility] [address] [place] [address] Pharmacist Technician: Khadar Tang MD Creatinine [Mass/Vol] 1.25 mg/dL High 0.70-1.20 [facility] Comment on above: Performed By: #### B MP #### [address] [place], [place] 8677[address] Pharmacist Technician: Khadar Tang MD GFR/1.73 sq M.predicted among non-blacks MDRD (S/P/Bld) [Vol rate/Area] mL/min/{1.73_m2} Normal >60 [facility] Comment on above: Result [...] secretion. Performed By: #### B MP #### [facility] [address] [place] [address] [address] [address] Pharmacist Technician: Khadar Tang MD Glucose [Mass/Vol] 186 mg/dL High 70-99 [facility] Comment on above: Performed By: #### B MP #### [address] [place] [address] Pharmacist Technician: Khadar Tang MD Potassium [Moles/Vol] 4.1 mmol/L Normal 3.7-5.3 [facility] Comment on above: Performed By: #### B MP #### [facility] [address] [place] [address] Pharmacist Technician: Khadar Tang MD Sodium [Moles/Vol] 137 mmol/L Normal 135-144 [facility] Comment on above: Performed By: #### B MP #### [facility] [address] [place] [address] Pharmacist Technician: Khadar Tang MD Urea nitrogen [Mass/Vol] 32 mg/dL High 8-23 [facility] Comment on above: Performed By: #### B MP #### [address] [place] [address] Pharmacist Technician: Khadar Tang MD RENAL COMPLETEon 09-19-19 Radiology Study observation (narrative) [facility] Hemoglobin A1Con 2022 Glucose [Mass/Vol] 171 mg/dL Normal [facility] Comment on above: Result Comment: The ADA and AACC recommend providing the estimated average glucose result to permit better patient understanding of their HBA1c result. Performed By: #### G LYHGB #### [address] [place] [address] Pharmacist Technician: Jeff Casanova MD HbA1c (Bld) [Mass fraction] 7.6 % High 4.0-6.0 [facility] Comment on above: Performed By: #### G LYHGB #### [address] [address] Pharmacist Technician: Jeff Casanova MD OPERATIVE REPORTon 3 OPERATIVE REPORT [address] [address] OPERATIVE REPORT PATIENT NAME: GANGA STINSON : 1960 [facility] REC NO: [id number] ROOM: ACCOUNT NO: [id number] ADMIT DATE: 2022 PROVIDER: Angeles Nagy DATE OF PROCEDURE: 2022 SURGEON: Dr. Angeles Nagy. ANIMAL HUMANE AGENT SUPERVISOR: None. PREOPERATIVE DIAGNOSES: 1. Neurogenic bladder. 2. Urethral stricture. POSTOPERATIVE DIAGNOSES: 1. Neurogenic bladder. 2. Urethral stricture. PROCEDURE PERFORMED: Direct visual internal urethrotomy. ANESTHESIA: General. COMPLICATIONS: None. ESTIMATED BLOOD LOSS: Minimal. SPECIMENS: None. PROSTHESIS: An 18-Macedonian Rowe catheter. DISPOSITION: Stable. FINDINGS: Bulbous urethral stricture. 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 DESCRIPTION OF PROCEDURE: The patient was taken back to the operating room after informed consent including all risks, benefits, and alternatives were obtained. The patient was transferred from the [facility] onto the operating room table, where he was induced under general anesthesia and given IV Ancef for preoperative antibiotic prophylaxis. To begin the case, he was prepped and draped in the normal sterile fashion and placed in dorsal lithotomy. He had a 21-Macedonian sheath with a 30-degree lens passed through [...] then removed the scope and inserted an 18-Macedonian Rowe catheter with ease. He was then awoken from general anesthesia, transferred to the [facility], and taken to the PACU in satisfactory condition by Nursing and Anesthesia Teams. PLAN: The patient will be discharged home per PACU criterion and follow up with me in one week for Rowe catheter removal. ANGELES NAGY [place]/Jerry_CAPRICEIS_I Doc#: [id number] CC: Normal [facility] Basic Metabolic Panelon 04-0 Anion gap [Moles/Vol] 10 mmol/L 9 - 17 mmol/L [facility] Calcium [Mass/Vol] 8.8 mg/dL 8.6 - 10. 4 mg/dL [facility] Chloride [Moles/Vol] 106 mmol/L 98 - 10 7 mmol/L [facility] CO2 [Moles/Vol] 24 [...] - 23 mg/dL [facility] Urea nitrogen/Creatinine (Bld) [Mass ratio] 22 High 9 - 20 [facility] Basic Metabolic Profon 07-02 Anion gap [Moles/Vol] 10 mmol/L Normal 9-17 [facility] Comment on above: Performed By: #### C MPX, CDP #### [facility] [address] [place] [address] [place] [address] Pharmacist Technician: Khadar Tang MD BUN/CRE Ratio 22 High 9-20 [facility] Comment on above: Performed By: #### C MPX, CDP #### [facility] [address] [place] [address] Pharmacist Technician: Khadar Tang MD Calcium [Mass/Vol] 8.8 mg/dL Normal 8.6-10.4 [facility] Comment on above: Performed By: #### C MPX, CDP #### [facility] [address] [place] [address] Pharmacist Technician: Khadar Tang MD Chloride [Moles/Vol] 106 mmol/L Normal 98-107 [facility] Comment on above: Performed By: #### C MPX, CDP #### [facility] [address] [place] [address] Pharmacist Technician: Khadar Tang MD CO2 [Moles/Vol] 24 mmol/L Normal 20-31 [facility] Comment on above: Performed By: #### C MPX, CDP #### [facility] [address] [place] [address] Pharmacist Technician: Kahdar Tang MD Creatinine [Mass/Vol] 1.30 mg/dL High 0.70-1.20 [facility] Comment on above: Performed By: #### C MPX, CDP #### [facility] [address] [place] [address] Pharmacist Technician: Khadar Tang MD GFR/1.73 sq M.predicted among non-blacks MDRD (S/P/Bld) [Vol rate/Area] mL/min/{1.73_m2} Normal >60 [facility] Comment on above: Result [...] Performed By: #### C MPX, CDP #### [facility] [address] [place] [address] Pharmacist Technician: Khadar Tang MD Glucose [Mass/Vol] 250 mg/dL High 70-99 [facility] Comment on above: Performed By: #### C MPX, CDP #### [facility] [address] [place] [address] Pharmacist Technician: Khadar Tang MD Potassium [Moles/Vol] 4.0 mmol/L Normal 3.7-5.3 [facility] Comment on above: Performed By: #### C MPX, CDP #### [facility] [address] [place] [address] Pharmacist Technician: Khadar Tang MD Sodium [Moles/Vol] 140 mmol/L Normal 135-144 [facility] Comment on above: Performed By: #### C MPX, CDP #### [facility] [address] [place] [address] Pharmacist Technician: Khadar Tang MD Urea nitrogen [Mass/Vol] 29 mg/dL High 8-23 [facility] Comment on above: Performed By: #### C MPX, CDP #### [facility] [address] [place] [address] Pharmacist Technician: Khadar Tang MD CBC with Auto Differentialon 07-02-2022 Absolute Eos # 0.80 High [facility] Absolute Immature Granulocyte 0.06 [facility] Absolute Lymph # 1.38 [facility] Absolute Carver # 0.81 [facility] Basophils Absolute [facility] Basophils/100 WBC (Bld) 0 % 0 [...] 3.39 10*6/uL Low 4.21 - 5.77 m/uL [facility] Segmented neutrophils/100 WBC (Bld) 71 % High 36 - 65 % [facility] Segs Absolute 7.79 [facility] WBC (Bld) [#/Vol] 10.9 10*3/uL [facility] CBC with Diffon 07-02-2022 Abs. Basophil <0.03 Normal 0.00-0.20 [facility] Comment on above: Performed By: #### C MPX, CDP #### [facility] [address] [place] [address] [place] [address] Pharmacist Technician: Khadar Tang MD Abs.Imm.Granulocyte 0.06 k/uL Normal 0.00-0.30 [facility] Comment on above: Performed By: #### C MPX, CDP #### [facility] [address] [place] [address] Dr. [place], [facility]83 Pharmacist Technician: Khadar Tang MD Abs.Neutrophil (Seg) 7.79 k/uL Normal 1.50-8.10 [facility] Comment on above: Performed By: #### C MPX, CDP #### [address] [place] [id number] Pharmacist Technician: Khadar Tang MD Basophils/100 WBC (Bld) 0 % Normal 0-2 [facility] Comment on above: Performed By: #### C MPX, CDP #### [facility] [address] [place] [address] Dr. [place], [place] 8263283 Pharmacist Technician: Khadar Tang MD Eosinophils (Bld) [#/Vol] 0.80 10*3/uL High 0.00-0.44 [facility] Comment on above: Performed By: #### C MPX, CDP #### [address] [place], [facility]83 Pharmacist Technician: Khadar Tang MD Eosinophils/100 WBC (Bld) 7 % High 1-4 [facility] Comment on above: Performed By: #### C MPX, CDP #### [address] [place], [facility]83 Pharmacist Technician: Khadar Tang MD Erythrocyte distribution width (RBC) [Ratio] 16.1 % High 11.8-14.4 [facility] Comment on above: Performed By: #### C MPX, CDP #### [address] [place], [facility]83 Pharmacist Technician: Khadar Tang MD Hematocrit (Bld) [Volume fraction] 26.8 % Low 40.7-50.3 [facility] Comment on above: Performed By: #### C MPX, CDP #### [address] [place], [facility]83 Pharmacist Technician: Khadar Tang MD Hemoglobin (Bld) [Mass/Vol] 7.9 g/dL Low 13.0-17.0 [facility] Comment on above: Performed By: #### C MPX, CDP #### [address] [place], [facility]83 Pharmacist Technician: Khadar Tang MD Immature granulocytes/100 WBC (Bld) 1 % High 0 [facility] Comment on above: Performed By: #### C MPX, CDP #### [address] [place], [facility]83 Pharmacist Technician: Khadar Tang MD Lymphocytes (Bld) [#/Vol] 1.38 10*3/uL Normal 1.10-3.70 [facility] Comment on above: Performed By: #### C MPX, CDP #### [facility] [address] [place] [address] Dr. [place], [facility]83 Pharmacist Technician: Khadar Tang MD Lymphocytes/100 WBC (Bld) 13 % Low 24-43 [facility] Comment on above: Performed By: #### C MPX, CDP #### [address] [place], [place] [address] Pharmacist Technician: Khadar Tang MD MCH (RBC) [Entitic mass] 23.3 pg Low 25.2-33.5 [facility] Comment on above: Performed By: #### C MPX, CDP #### [address] [place], [facility]44 ( Pharmacist Technician: Khadar Tang MD MCHC (RBC) [Mass/Vol] 29.5 g/dL Normal 28.4-34.8 [facility] Comment on above: Performed By: #### C MPX, CDP #### [address] [place], [facility] ( Pharmacist Technician: Khadar Tang MD MCV (RBC) [Entitic vol] 79.1 fL Low 82.6-102.9 [facility] Comment on above: Performed By: #### C MPX, CDP #### [address] [place], [facility]83 Pharmacist Technician: Khadar Tang MD Monocytes (Bld) [#/Vol] 0.81 10*3/uL Normal 0.10-1.20 [facility] Comment on above: Performed By: #### C MPX, CDP #### [address] [place], [facility]83 Pharmacist Technician: Khadar Tang MD Monocytes/100 WBC (Bld) 8 % Normal 3-12 [facility] Comment on above: Performed By: #### C MPX, CDP #### [facility] [address] [place] [address] Pharmacist Technician: Khadar Tang MD Neutrophil (Seg) 71 % High 36-65 [facility] Comment on above: Performed By: #### C MPX, CDP #### [facility] [address] [place] [address] Pharmacist Technician: Khadar Tang MD NRBC Automated 0.0 per 100 WBC Normal 0.0 [facility] Comment on above: Performed By: #### C MPX, CDP #### [facility] [address] [place], [place] 7701283 Pharmacist Technician: Khadar Tang MD Platelet mean volume (Bld) [Entitic vol] 9.1 fL Normal 8.1-13.5 [facility] Comment on above: Performed By: #### C MPX, CDP #### [address] [place], [place] 0379683 Pharmacist Technician: Khadar Tang MD Platelets (Bld) [#/Vol] 241 10*3/uL Normal 138-453 [facility] Comment on above: Performed By: #### C MPX, CDP #### [facility] [address] [place], [place] 5354483 Pharmacist Technician: Khadar Tang MD RBC (Bld) [#/Vol] 3.39 10*6/uL Low 4.21-5.77 [facility] Comment on above: Performed By: #### C MPX, CDP #### [facility] [address] [place] [address] Pharmacist Technician: Khadar Tang MD WBC (Bld) [#/Vol] 10.9 10*3/uL Normal 3.5-11.3 [facility] Comment on above: Performed By: #### C MPX, CDP #### [facility] [address] [place] [address] Pharmacist Technician: Khadar Tang MD Cult,Woundon 06-27-2022 Cult,Wound Specimen Description .WOUND Special Requests LEG Direct Exam NO NEUTROPHILS SEEN NO ORGANISMS SEEN Culture NO GROWTH Report Status FINAL 06/27/2022 Normal [facility] Comment on above: Performed By: #### C MPX, CDP #### [facility] [address] [place] [address] Pharmacist Technician: Khadar Tang MD CBC auto differentialon 05-29 Absolute Eos # 0.63 High [facility] Absolute Immature Granulocyte 0.05 [facility] Absolute Lymph # 1.33 [facility] Absolute Carver # 0.82 [facility] Basophils Absolute [facility] Basophils/100 WBC (Bld) 0 % 0 [...] 3.20 10*6/uL Low 4.21 - 5.77 m/uL [facility] Segmented neutrophils/100 WBC (Bld) 69 % High 36 - 65 % [facility] Segs Absolute 6.49 [facility] WBC (Bld) [#/Vol] 9.3 10*3/uL [facility] CBC with Diffon 06-26-2022 Abs. Basophil <0.03 Normal 0.00-0.20 [facility] Comment on above: Performed By: #### C MPX, CDP #### [facility] [address] [place] [address] Dr. [place], [facility]83 Pharmacist Technician: Khadar Tang MD Abs.Imm.Granulocyte 0.05 k/uL Normal 0.00-0.30 [facility] Comment on above: Performed By: #### C MPX, CDP #### [address] [place], [place] 3715983 Pharmacist Technician: Khadar Tang MD Abs.Neutrophil (Seg) 6.49 k/uL Normal 1.50-8.10 [facility] Comment on above: Performed By: #### C MPX, CDP #### [facility] [address] [place] [address] Dr. Suárez, [facility]83 Pharmacist Technician: Khadar Tang MD Basophils/100 WBC (Bld) 0 % Normal 0-2 [facility] Comment on above: Performed By: #### C MPX, CDP #### [address] [place] [address] Pharmacist Technician: Khadar Tang MD Eosinophils (Bld) [#/Vol] 0.63 10*3/uL High 0.00-0.44 [facility] Comment on above: Performed By: #### C MPX, CDP #### [facility] [address] [place] [address] Dr. Suárez, [place] [address] Pharmacist Technician: Khadar Tang MD Eosinophils/100 WBC (Bld) 7 % High 1-4 [facility] Comment on above: Performed By: #### C MPX, CDP #### [address] [place] [place] [address] Pharmacist Technician: Khadar Tang MD Erythrocyte distribution width (RBC) [Ratio] 16.0 % High 11.8-14.4 [facility] Comment on above: Performed By: #### C MPX, CDP #### [address] Suárez, [place] [address] Pharmacist Technician: Khadar Tang MD Hematocrit (Bld) [Volume fraction] 24.4 % Low 40.7-50.3 [facility] Comment on above: Performed By: #### C MPX, CDP #### [address] Suárez, [facility]83 Pharmacist Technician: Khadar Tang MD Hemoglobin (Bld) [Mass/Vol] 7.6 g/dL Low 13.0-17.0 [facility] Comment on above: Performed By: #### C MPX, CDP #### [address] [place]árez, [facility]83 Pharmacist Technician: Khadar Tang MD Immature granulocytes/100 WBC (Bld) 1 % High 0 [facility] Comment on above: Performed By: #### C MPX, CDP #### [address] [place]árez, [facility]83 Pharmacist Technician: Khadar Tang MD Lymphocytes (Bld) [#/Vol] 1.33 10*3/uL Normal 1.10-3.70 [facility] Comment on above: Performed By: #### C MPX, CDP #### [address] [place] [address] Pharmacist Technician: Khadar Tang MD Lymphocytes/100 WBC (Bld) 14 % Low 24-43 [facility] Comment on above: Performed By: #### C MPX, CDP #### [address] [place] [address] Pharmacist Technician: Khadar Tang MD MCH (RBC) [Entitic mass] 23.8 pg Low 25.2-33.5 [facility] Comment on above: Performed By: #### C MPX, CDP #### [address] [place] [address] Pharmacist Technician: Khadar Tang MD MCHC (RBC) [Mass/Vol] 31.1 g/dL Normal 28.4-34.8 [facility] Comment on above: Performed By: #### C MPX, CDP #### [address] [place] [address] Pharmacist Technician: Khadar Tang MD MCV (RBC) [Entitic vol] 76.3 fL Low 82.6-102.9 [facility] Comment on above: Performed By: #### C MPX, CDP #### [address] [place] [address] Pharmacist Technician: Khadar Tang MD Monocytes (Bld) [#/Vol] 0.82 10*3/uL Normal 0.10-1.20 [facility] Comment on above: Performed By: #### C MPX, CDP #### [address] [place] [address] Pharmacist Technician: Khadar Tang MD Monocytes/100 WBC (Bld) 9 % Normal 3-12 [facility] Comment on above: Performed By: #### C MPX, CDP #### [facility] [address] [place], [place] 8986983 Pharmacist Technician: Khadar Tang MD Neutrophil (Seg) 69 % High 36-65 [facility] Comment on above: Performed By: #### C MPX, CDP #### [facility] [address] [place], [place] 9429083 Pharmacist Technician: Khadar Tang MD NRBC Automated 0.0 per 100 WBC Normal 0.0 [facility] Comment on above: Performed By: #### C MPX, CDP #### [facility] [address] [place], [place] 7165083 Pharmacist Technician: Khadar Tang MD Platelet mean volume (Bld) [Entitic vol] 8.8 fL Normal 8.1-13.5 [facility] Comment on above: Performed By: #### C MPX, CDP #### [facility] [address] [place] [address] Pharmacist Technician: Khadar Tang MD Platelets (Bld) [#/Vol] 205 10*3/uL Normal 138-453 [facility] Comment on above: Performed By: #### C MPX, CDP #### [facility] [address] [place] [address] Pharmacist Technician: Khadar Tang MD RBC (Bld) [#/Vol] 3.20 10*6/uL Low 4.21-5.77 [facility] Comment on above: Performed By: #### C MPX, CDP #### [facility] [address] [place], [place] 6649083 Pharmacist Technician: Khadar Tang MD WBC (Bld) [#/Vol] 9.3 10*3/uL Normal 3.5-11.3 [facility] Comment on above: Performed By: #### C MPX, CDP #### [facility] [address] [place] [address] Pharmacist Technician: Khadar Tang MD EKG Rhythm Stripon 3 rd [facility] Glucose, Whole Bloodon 06-26 Glucose [Mass/Vol] 95 mg/dL 74 - 100 mg/dL [facility] No Panel Informationon 06-26 No dictation [facility] [...] SURGICAL PATHOLOGY CONSULTATION Patient Name: GANGA STINSON [facility] Rec: [id number] Path Number: [id number] [facility] ANATOMIC PATHOLOGY [address] [place] [id number] Normal [facility] Comment on above: Performed By: #### C MPX, CDP #### [facility] [address] [place] [address] Pharmacist Technician: Khadar Tang MD Blood occult stool #1on 05-29 Date, Stool #1 3 [facility] Comment on above: 30 23 Hemoglobin.gastrointe stinal spec 1 Ql (Stl) Negative NEGATIVE [facility] Time, Stool #1 1944 [facility] CBC auto differentialon 03-3 Absolute Eos # 0.63 High [facility] Absolute Immature Granulocyte 0.07 [facility] Absolute Lymph # 1.63 [facility] Absolute Carver # 0.76 [facility] Basophils Absolute [facility] Basophils/100 WBC (Bld) 0 % 0 [...] 3.21 10*6/uL Low 4.21 - 5.77 m/uL [facility] Segmented neutrophils/100 WBC (Bld) 64 % 36 - 65 % [facility] Segs Absolute 5.60 [facility] WBC (Bld) [#/Vol] 8.7 10*3/uL [facility] CBC with Diffon 06-25-2022 Abs. Basophil <0.03 Normal 0.00-0.20 [facility] Comment on above: Performed By: #### T ROPI #### [facility] [address] [place], [place] [address] Pharmacist Technician: Khadar Tang MD Abs.Imm.Granulocyte 0.07 k/uL Normal 0.00-0.30 [facility] Comment on above: Performed By: #### T ROPI #### [facility] [address] Suárez, [facility]83 Pharmacist Technician: Khadar Tang MD Abs.Neutrophil (Seg) 5.60 k/uL Normal 1.50-8.10 [facility] Comment on above: Performed By: #### T ROPI #### [facility] [address] Suárez, [facility]83 Pharmacist Technician: Khadar Tang MD Basophils/100 WBC (Bld) 0 % Normal 0-2 [facility] Comment on above: Performed By: #### T ROPI #### [facility] [address] [place], [place] [address] Pharmacist Technician: Khadar Tang MD Eosinophils (Bld) [#/Vol] 0.63 10*3/uL High 0.00-0.44 [facility] Comment on above: Performed By: #### T ROPI #### [facility] [address] Suárez, [facility]83 Pharmacist Technician: Khadar Tang MD Eosinophils/100 WBC (Bld) 7 % High 1-4 [facility] Comment on above: Performed By: #### T ROPI #### [facility] [address] [place] [id number] Pharmacist Technician: Khadar Tang MD Erythrocyte distribution width (RBC) [Ratio] 15.9 % High 11.8-14.4 [facility] Comment on above: Performed By: #### T ROPI #### [facility] [address] [place] [address] Dr. Suárez, [place] 5563983 Pharmacist Technician: Khadar Tang MD Hematocrit (Bld) [Volume fraction] 24.6 % Low 40.7-50.3 [facility] Comment on above: Performed By: #### T ROPI #### [facility] [address] [place] [address] Dr. Suárez, [place] 8426983 Pharmacist Technician: Khadar Tang MD Hemoglobin (Bld) [Mass/Vol] 7.6 g/dL Low 13.0-17.0 [facility] Comment on above: Performed By: #### T ROPI #### [address] Suárez, [facility]83 Pharmacist Technician: Khadar Tang MD Immature granulocytes/100 WBC (Bld) 1 % High 0 [facility] Comment on above: Performed By: #### T ROPI #### [address] [place], [place] 2284883 Pharmacist Technician: Khadar Tang MD Lymphocytes (Bld) [#/Vol] 1.63 10*3/uL Normal 1.10-3.70 [facility] Comment on above: Performed By: #### T ROPI #### [facility] [address] [place] [address] Dr. Suárez, [facility]83 Pharmacist Technician: Khadar Tang MD Lymphocytes/100 WBC (Bld) 19 % Low 24-43 [facility] Comment on above: Performed By: #### T ROPI #### [address] [place] [address] [place] [address] Pharmacist Technician: Khadar Tang MD MCH (RBC) [Entitic mass] 23.7 pg Low 25.2-33.5 [facility] Comment on above: Performed By: #### T ROPI #### [facility] [address] [place], [place] 6030683 Pharmacist Technician: Khadar Tang MD MCHC (RBC) [Mass/Vol] 30.9 g/dL Normal 28.4-34.8 [facility] Comment on above: Performed By: #### T ROPI #### [facility] [address] Suá[place], [facility]83 Pharmacist Technician: Khadar Tang MD MCV (RBC) [Entitic vol] 76.6 fL Low 82.6-102.9 [facility] Comment on above: Performed By: #### T ROPI #### [facility] [address] Suá[place], [facility]83 Pharmacist Technician: Khadar Tang MD Monocytes (Bld) [#/Vol] 0.76 10*3/uL Normal 0.10-1.20 [facility] Comment on above: Performed By: #### T ROPI #### [facility] [address] [place], [place] 6932983 Pharmacist Technician: Khadar Tang MD Monocytes/100 WBC (Bld) 9 % Normal 3-12 [facility] Comment on above: Performed By: #### T ROPI #### [facility] [address] [place], [facility]83 Pharmacist Technician: Khadar Tang MD Neutrophil (Seg) 64 % Normal 36-65 [facility] Comment on above: Performed By: #### T ROPI #### [facility] [address] [place], [facility]83 Pharmacist Technician: Khadar Tang MD NRBC Automated 0.0 per 100 WBC Normal 0.0 [facility] Comment on above: Performed By: #### T ROPI #### [facility] [address] [place], [facility]83 Pharmacist Technician: Khadar Tang MD Platelet mean volume (Bld) [Entitic vol] 8.9 fL Normal 8.1-13.5 [facility] Comment on above: Performed By: #### T ROPI #### [facility] [address] [place], [place] 3679383 Pharmacist Technician: Khadar Tang MD Platelets (Bld) [#/Vol] 223 10*3/uL Normal 138-453 [facility] Comment on above: Performed By: #### T ROPI #### [facility] [address] [place] [address] Pharmacist Technician: Khadar Tang MD RBC (Bld) [#/Vol] 3.21 10*6/uL Low 4.21-5.77 [facility] Comment on above: Performed By: #### T ROPI #### [facility] [address] [place], [place] 7617083 Pharmacist Technician: Khadar Tang MD WBC (Bld) [#/Vol] 8.7 10*3/uL Normal 3.5-11.3 [facility] Comment on above: Performed By: #### T ROPI #### [facility] [address] [place], [place] 0027983 Pharmacist Technician: Khadar Tang MD Comp Metabolic Pr/rfx MGon 0 06-25-2022 Albumin [Mass/Vol] 2.8 g/dL Low 3.5-5.2 [facility] Comment on above: Performed By: #### T ROPI #### [facility] [address] [place] [address] Pharmacist Technician: Khadar Tang MD Albumin/Glob Ratio 0.7 Low 1.0-2.5 [facility] Comment on above: Performed By: #### T ROPI #### [facility] [address] [place] [address] Pharmacist Technician: hKadar Tang MD Alkaline Phos 75 U/L Normal 40-129 [facility] Comment on above: Performed By: #### T ROPI #### [facility] [address] [place], [place] 0806683 Pharmacist Technician: Khadar Tang MD ALT [Catalytic activity/Vol] 9 U/L Normal 5-41 [facility] Comment on above: Performed By: #### T ROPI #### [facility] [address] [place], [place] 4947183 Pharmacist Technician: Khadar Tang MD Anion gap [Moles/Vol] 6 mmol/L Low 9-17 [facility] Comment on above: Performed By: #### T ROPI #### [facility] [address] [place], [place] 2247683 Pharmacist Technician: Khadar Tang MD AST [Catalytic activity/Vol] 10 U/L Normal <40 [facility] Comment on above: Performed By: #### T ROPI #### [facility] [address] [place], [place] 4000183 Pharmacist Technician: Khadar Tang MD Bilirubin [Mass/Vol] 0.3 mg/dL Normal 0.3-1.2 [facility] Comment on above: Performed By: #### T ROPI #### [facility] [address] [place], [place] 6578683 Pharmacist Technician: Khadar Tang MD BUN/CRE Ratio 20 Normal 9-20 [facility] Comment on above: Performed By: #### T ROPI #### [facility] [address] [place], [place] 5443583 Pharmacist Technician: Khadar Tnag MD Calcium [Mass/Vol] 8.7 mg/dL Normal 8.6-10.4 [facility] Comment on above: Performed By: #### T ROPI #### [facility] [address] [place] [address] Pharmacist Technician: Khadar Tang MD Chloride [Moles/Vol] 113 mmol/L High 98-107 [facility] Comment on above: Performed By: #### T ROPI #### [facility] [address] [place] [address] Pharmacist Technician: Khadar Tang MD CO2 [Moles/Vol] 20 mmol/L Normal 20-31 [facility] Comment on above: Performed By: #### T ROPI #### [facility] [address] [place] [address] Pharmacist Technician: Khadar Tang MD Creatinine [Mass/Vol] 0.97 mg/dL Normal 0.70-1.20 [facility] Comment on above: Performed By: #### T ROPI #### [facility] [address] [place] [address] Pharmacist Technician: Khadar Tang MD GFR/1.73 sq M.predicted among non-blacks MDRD (S/P/Bld) [Vol rate/Area] mL/min/{1.73_m2} Normal >60 [facility] Comment on above: Result [...] secretion. Performed By: #### T ROPI #### [facility] [address] [place] [address] Pharmacist Technician: Khadar Tang MD Glucose [Mass/Vol] 144 mg/dL High 70-99 [facility] Comment on above: Performed By: #### T ROPI #### [facility] [address] [place] [address] Pharmacist Technician: Khadar Tang MD Potassium [Moles/Vol] 4.5 mmol/L Normal 3.7-5.3 [facility] Comment on above: Performed By: #### T ROPI #### [facility] [address] [place] [address] Pharmacist Technician: Khadar Tang MD Protein [Mass/Vol] 6.7 g/dL Normal 6.4-8.3 [facility] Comment on above: Performed By: #### T ROPI #### [facility] [address] [place], [place] 6255083 Pharmacist Technician: Khadar Tang MD Sodium [Moles/Vol] 139 mmol/L Normal 135-144 [facility] Comment on above: Performed By: #### T ROPI #### [facility] [address] [place] [address] Pharmacist Technician: Khadar Tang MD Urea nitrogen [Mass/Vol] 19 mg/dL Normal 8-23 [facility] Comment on above: Performed By: #### T ROPI #### [facility] [address] [place] [address] Pharmacist Technician: Khadar Tang MD Comprehensive Metabolic Pane [...] SYSTEM Bilirubin [Mass/Vol] 0.3 mg/dL 0.3 - 1 .2 mg/dL [facility] Calcium [Mass/Vol] 8.7 mg/dL 8.6 - 10. 4 mg/dL [facility] Chloride [Moles/Vol] 113 mmol/L High 98 - 10 7 mmol/L [facility] CO2 [Moles/Vol] 20 [...] - 23 mg/dL [facility] Urea nitrogen/Creatinine (Bld) [Mass ratio] 20 9 - 20 [facility] Cult,Woundon 06-25-2022 Cult,Wound Specimen Description .BUTTOCK Direct Exam FEW NEUTROPHILS MODERATE GRAM POSITIVE COCCI IN PAIRS MODERATE GRAM POSITIVE RODS Culture NORMAL SKIN ROBBIE Report Status FINAL 06/25/2022 Normal [facility] Comment on above: Performed By: #### T BRENDA #### [facility] [address] [place] [address] Pharmacist Technician: Khadar Tang MD EKG Rhythm Stripon 3 [facility] ml [facility] Occult Blood, Fecalon 2022 Occult Blood 1 Negative Normal NEG [facility] Comment on above: Performed By: #### C MPX, CDP #### [facility] [address] [place], [place] 1810283 Pharmacist Technician: Khadar Tang MD Specimen 1 Date [facility] Comment on above: Result Comment: Performed By: #### C MPX, CDP #### [facility] [address] [place], [place] [address] Pharmacist Technician: Khadar Tang MD Specimen 1 Time 1944 [facility] Comment on above: Performed By: #### C MPX, CDP #### [facility] [address] [place], [place] 1770683 Pharmacist Technician: Khadar Tang MD Surgical Pathologyon 023 [...] FIBULAR MALLEOLUS,RIGHT ANKLE Gross Description GANGA STINSON, YAA Received in formalin is a 0.8 x 0.2 x 0.1 cm pardo, firm tissue fragment. Totally embedded 1c, decal. tm Microscopic Description Microscopic examination performed. SURGICAL PATHOLOGY CONSULTATION Patient Name: GANGA STINSON [facility] Rec: [id number] Path Number: [id number] [facility] [employer] [facility] ANATOMIC PATHOLOGY [address] [place] [address]. [place], [place] [address] [facility] Comment on above: Performed By: #### C MPX, CDP #### [facility] [address] [place] [address] Pharmacist Technician: Khadar Tang MD TYPE AND SCREENon 06-25-2022 ABO/Rh Negative [facility] Arm Band Number [id number] [facility] Blood Bank Blood Product Expiration Date [id number] [facility] Blood Bank ISBT Product Blood Type 9500 [facility] Blood Bank Unit Type and Rh Negative [facility] Blood product type Nom (BPU) Leukocyte Reduced Red Cell [facility] Blood product unit ID (Dose) [#] [id number] [facility] Crossmatch Result COMPATIBLE [facility] Dispense Status TRANSFUSED [facility] Expiration Date 06/27/2022,2359 [facility] Product Code Blood Bank [id number] [facility] Transfusion Status OK TO TRANSFUSE B ON [facility] Unit Divison 0 [facility] Unit Issue Date/Time [id number] FERNY N [facility] APTTon 06-24-2022 aPTT Coag (Bld) [Time] 35.6 s High 26.8-34.8 [facility] Comment on above: Result Comment: IV Heparin Therapy Range: 62.0-94.0 Performed By: #### C MPX, CDP #### [facility] [address] [place] [address] Pharmacist Technician: Khadar Tang MD B12/Folate Panelon Cobalamin (Vitamin B12) [Mass/Vol] 446 pg/mL Normal 232-1245 [facility] Comment on above: Performed By: #### C MPX, CDP #### [facility] [address] [place] [address] Pharmacist Technician: Khadar Tang MD Folic Acid 8.2 ng/mL Normal >4.8 [facility] Comment on above: Performed By: #### C MPX, CDP #### [facility] [address] [place] [address] Pharmacist Technician: Khadar Tang MD CBC auto differentialon 05-28 Absolute Eos # 0.46 High [facility] Absolute Immature Granulocyte 0.07 [facility] Absolute Lymph # 1.52 [facility] Absolute Carver # 0.53 [facility] Basophils (Bld) [#/Vol] 0.00 10*3/uL [facility] 2.82 10*6/uL Low 4.21 - 5.77 m/uL [facility] Segmented neutrophils/100 WBC (Bld) 61 % 36 - 65 % [facility] Segs Absolute 4.02 [facility] WBC (Bld) [#/Vol] 6.6 10*3/uL [facility] CBC with Diffon 06-24-2022 Abs. Basophil 0.00 k/uL Normal 0.0-0.2 [facility] Comment on above: Performed By: #### C MPX, CDP #### [facility] [address] [place] [address] Pharmacist Technician: Khadar Tang MD Abs.Imm.Granulocyte 0.07 k/uL Normal 0.00-0.30 [facility] Comment on above: Performed By: #### C MPX, CDP #### [facility] [address] [place] [address] Pharmacist Technician: Khadar Tang MD Abs.Neutrophil (Seg) 4.02 k/uL Normal 1.50-8.10 [facility] Comment on above: Performed By: #### C MPX, CDP #### [facility] [address] [place], [facility]83 Pharmacist Technician: Khadar Tang MD Eosinophils (Bld) [#/Vol] 0.46 10*3/uL High 0.00-0.44 [facility] Comment on above: Performed By: #### C MPX, CDP #### [address] [place] [address] Pharmacist Technician: Khadar Tang MD Lymphocytes (Bld) [#/Vol] 1.52 10*3/uL Normal 1.10-3.70 [facility] Comment on above: Performed By: #### C MPX, CDP #### [facility] [address] [place], [place] 8945283 Pharmacist Technician: Khadar Tang MD Monocytes (Bld) [#/Vol] 0.53 10*3/uL Normal 0.10-1.20 [facility] Comment on above: Performed By: #### C MPX, CDP #### [facility] [address] [place], [place] 8198641 Pharmacist Technician: Khadar Tang MD Morphology Álvaro (Bld) [Interp] HYPOCHROMIA Normal [facility] Comment on above: Result Comment: PRES ENT Performed By: #### C MPX, CDP #### [address] [place], [place] 0086783 Pharmacist Technician: Khadar Tang MD Neutrophil (Seg) 61 % Normal 36-65 [facility] Comment on above: Performed By: #### C MPX, CDP #### [address] [place], [place] 9104083 Pharmacist Technician: Khadar Tang MD Erythrocyte distribution width (RBC) [Ratio] 16.2 % High 11.8-14.4 [facility] Comment on above: Performed By: #### C MPX, CDP #### [address] [place], [place] 4282883 Pharmacist Technician: Khadar Tang MD Hematocrit (Bld) [Volume fraction] 21.7 % Low 40.7-50.3 [facility] Comment on above: Performed By: #### C MPX, CDP #### [address] [place], [place] 3424983 Pharmacist Technician: Khadar Tang MD Hemoglobin (Bld) [Mass/Vol] 6.6 g/dL Critically low 13.0-17.0 [facility] Comment on above: Performed By: #### C MPX, CDP #### [address] [place], [place] 0742783 Pharmacist Technician: Khadar Tang MD MCH (RBC) [Entitic mass] 23.4 pg Low 25.2-33.5 [facility] Comment on above: Performed By: #### C MPX, CDP #### [address] [place] [address] Pharmacist Technician: Khadar Tang MD MCHC (RBC) [Mass/Vol] 30.4 g/dL Normal 28.4-34.8 [facility] Comment on above: Performed By: #### C MPX, CDP #### [address] [place], [place] 6617883 Pharmacist Technician: Khadar Tang MD MCV (RBC) [Entitic vol] 77.0 fL Low 82.6-102.9 [facility] Comment on above: Performed By: #### C MPX, CDP #### [address] [place], [place] 9941083 Pharmacist Technician: Khadar Tang MD NRBC Automated 0.0 per 100 WBC Normal 0.0 [facility] Comment on above: Performed By: #### C MPX, CDP #### [address] [place], [place] [id number] Pharmacist Technician: Khadar Tang MD Platelet mean volume (Bld) [Entitic vol] 8.9 fL Normal 8.1-13.5 [facility] Comment on above: Performed By: #### C MPX, CDP #### [address] [place], [place] [id number] Pharmacist Technician: Khadar Tang MD Platelets (Bld) [#/Vol] 208 10*3/uL Normal 138-453 [facility] Comment on above: Performed By: #### C MPX, CDP #### [address] [place], [place] 3967183 Pharmacist Technician: Khadar Tang MD RBC (Bld) [#/Vol] 2.82 10*6/uL Low 4.21-5.77 [facility] Comment on above: Performed By: #### C MPX, CDP #### [address] [place], [place] 6027783 Pharmacist Technician: Khadar Tang MD WBC (Bld) [#/Vol] 6.6 10*3/uL Normal 3.5-11.3 [facility] Comment on above: Performed By: #### C MPX, CDP #### [facility] [address] [place], [place] 2103983 Pharmacist Technician: Khadar Tang MD Basophils/100 WBC (Bld) 0 % Normal 0-2 [facility] Comment on above: Performed By: #### C MPX, CDP #### [facility] [address] [place], [facility]83 Pharmacist Technician: Khadar Tang MD Eosinophils/100 WBC (Bld) 7 % High 1-4 [facility] Comment on above: Performed By: #### C MPX, CDP #### [address] [place], [place] 4817583 Pharmacist Technician: Khadar Tang MD Immature granulocytes/100 WBC (Bld) 1 % High 0 [facility] Comment on above: Performed By: #### C MPX, CDP #### [address] [place], [place] 2536783 Pharmacist Technician: Khadar Tang MD Lymphocytes/100 WBC (Bld) 23 % Low 24-43 [facility] Comment on above: Performed By: #### C MPX, CDP #### [facility] [address] [place], [place] 6340283 Pharmacist Technician: Khadar Tang MD Monocytes/100 WBC (Bld) 8 % Normal 3-12 [facility] Comment on above: Performed By: #### C MPX, CDP #### [facility] [address] [place] [place] [address] Pharmacist Technician: Khadar Tang MD Comp Metabolic Pr/rfx MGon 0 06-24-2022 Albumin [Mass/Vol] 2.4 g/dL Low 3.5-5.2 [facility] Comment on above: Performed By: #### C MPX, CDP #### [facility] [address] [place], [place] 7749283 Pharmacist Technician: Khadar Tang MD Albumin/Glob Ratio 0.6 Low 1.0-2.5 [facility] Comment on above: Performed By: #### C MPX, CDP #### [facility] [address] [place], [place] 6572683 Pharmacist Technician: Khadar Tang MD Alkaline Phos 75 U/L Normal 40-129 [facility] Comment on above: Performed By: #### C MPX, CDP #### [facility] [address] [place], [place] 4810883 Pharmacist Technician: Khadar Tang MD ALT [Catalytic activity/Vol] 9 U/L Normal 5-41 [facility] Comment on above: Performed By: #### C MPX, CDP #### [facility] [address] [place], [place] 1981583 Pharmacist Technician: Khadar Tang MD Anion gap [Moles/Vol] 7 mmol/L Low 9-17 [facility] Comment on above: Performed By: #### C MPX, CDP #### [facility] [address] [place], [place] 0791383 Pharmacist Technician: Khadar Tang MD AST [Catalytic activity/Vol] 11 U/L Normal <40 [facility] Comment on above: Performed By: #### C MPX, CDP #### [facility] [address] [place], [place] 0327883 Pharmacist Technician: Khadar Tang MD Bilirubin [Mass/Vol] mg/dL Low 0.3-1.2 [facility] Comment on above: Performed By: #### C MPX, CDP #### [facility] [address] [place], [place] 4006583 Pharmacist Technician: Khadar Tang MD BUN/CRE Ratio 23 High 9-20 [facility] Comment on above: Performed By: #### C MPX, CDP #### [facility] [address] [place], [place] 3194083 Pharmacist Technician: Khadar Tang MD Calcium [Mass/Vol] 8.5 mg/dL Low 8.6-10.4 [facility] Comment on above: Performed By: #### C MPX, CDP #### [facility] [address] [place], [place] 0003883 Pharmacist Technician: Khadar Tang MD Chloride [Moles/Vol] 115 mmol/L High 98-107 [facility] Comment on above: Performed By: #### C MPX, CDP #### [facility] [address] [place], [place] 0108283 Pharmacist Technician: Khadar Tang MD CO2 [Moles/Vol] 18 mmol/L Low 20-31 [facility] Comment on above: Performed By: #### C MPX, CDP #### [facility] [address] [place], [place] 8878683 Pharmacist Technician: Khadar Tang MD Creatinine [Mass/Vol] 1.11 mg/dL Normal 0.70-1.20 [facility] Comment on above: Performed By: #### C MPX, CDP #### [facility] [address] [place], [place] 4728683 Pharmacist Technician: Khadar Tang MD GFR/1.73 sq M.predicted among non-blacks MDRD (S/P/Bld) [Vol rate/Area] mL/min/{1.73_m2} Normal >60 [facility] Comment on above: Result [...] Performed By: #### C MPX, CDP #### [facility] [address] [place] [place] [address] Pharmacist Technician: Khadar Tang MD Glucose [Mass/Vol] 137 mg/dL High 70-99 [facility] Comment on above: Performed By: #### C MPX, CDP #### [facility] [address] [place], [place] 1746283 Pharmacist Technician: Khadar Tang MD Potassium [Moles/Vol] 4.9 mmol/L Normal 3.7-5.3 [facility] Comment on above: Performed By: #### C MPX, CDP #### [facility] [address] [place], [place] 0761783 Pharmacist Technician: Khadar Tang MD Protein [Mass/Vol] 6.3 g/dL Low 6.4-8.3 [facility] Comment on above: Performed By: #### C MPX, CDP #### [facility] [address] [place], [place] 3865683 Pharmacist Technician: Khadar Tang MD Sodium [Moles/Vol] 140 mmol/L Normal 135-144 [facility] Comment on above: Performed By: #### C MPX, CDP #### [facility] [address] [place], [place] 6767983 Pharmacist Technician: Khadar Tang MD Urea nitrogen [Mass/Vol] 26 mg/dL High 8-23 [facility] Comment on above: Performed By: #### C MPX, CDP #### [facility] [address] [place] [place] [address] Pharmacist Technician: Khadar Tang MD Comprehensive Metabolic Pane l w/ Reflex to on 06-24-2022 Albumin [Mass/Vol] 2.4 g/dL Low 3.5 - 5.2 g/dL [facility] Albumin/Globulin [Mass ratio] 0.6 {ratio} Low 1.0 [...] SYSTEM Bilirubin [Mass/Vol] mg/dL Low 0.3 - 1 .2 mg/dL [facility] Calcium [Mass/Vol] 8.5 mg/dL Low 8.6 - 10. 4 mg/dL [facility] Chloride [Moles/Vol] 115 mmol/L High 98 - 10 7 mmol/L [facility] CO2 [Moles/Vol] 18 [...] - 23 mg/dL [facility] Urea nitrogen/Creatinine (Bld) [Mass ratio] 23 High 9 - 20 [employer] Culture, Wound Aerobic Onlyo n 06-24-2022 Interpretation and review of laboratory results Abnormal [facility] Microorganism identified Cx Nom (Unsp spec) NORMAL SKIN ROBBIE [employer] [facility] [employer] Microorganism or agent identified Nom (Unsp spec) FEW NEUTROPHILS Abnormal [facility] Specimen Description .BUTTOCK [employer] EKG 12 Leadon 06-24-2022 Atrial Rate 64 BPM [facility] Work Phone: P [place] 51 degrees [employer] Work Phone: P-R Interval 174 ms [facility] Work Phone: Q-T Interval 394 ms [facility] Work Phone: QRS Duration 94 ms [facility] Work Phone: QTc Calculation (Bazett) 406 ms [facility] Work Phone: R [place] 20 degrees [facility] Work Phone: T [place] 22 degrees [facility] Work Phone: Ventricular Rate 64 BPM [employer] Work Phone: Normal sinus rhythm Inferior infarct , age undetermined Abnormal ECG When compared with ECG of 22-JUN-2022 17:28, Minimal criteria for Inferior infarct is now Present Confirmed by Michelle Noe MD ([id number]) on 06/24/2022 10:31:[address] [facility] Michelle Noe MD - 06/24/2022 Normal sinus rhythm Inferior infarct , age undetermined Abnormal ECG When compared with ECG of 22-JUN-2022 17:28, Minimal criteria for Inferior infarct is now Present Confirmed by Michelle Noe MD ([id number]) on 06/24/2022 10:31:37 PM [facility] Work Phone: [facility] Work Phone: EKG Rhythm Stripon 3 [facility] Echocardiogram complete 2D w ith doppler with coloron 06-24-2022 Left ventricular Ejection fraction 60 [facility] Work Phone: LVEF MODALITY ECHO [facility] Work Phone: [facility] Transthoracic Echocardiography Report (TTE) Patient Name ALLOWAY Date of Study 06/24/2022 GANGA Evans Date of 1960 Gender Male Age 61 year(s) Race Room Number 0334 Height: 71 inch, 180.34 cm Corporate ID [id number] Weight: 252 pounds, 114.3 kg # Patient Acct [id number] BSA: 2.33 m^2 BMI: 35.15 kg/m^2 # MR # [id number] Software Clerk Jeanette Clarke Interpreting Physician Michelle Noe Fellow Referring Nurse Shelly Mondragon, Practitioner DOLLY Interpreting Referring Physician Fellow Type of Study TTE procedure:2D Echocardiogram, M-Mode, Doppler, Color Doppler. Procedure Date Date: 06/24/2022 Start: 09:47 AM Study Location: [facility] Indications:Abnormal ECG. History / Tech. [...] MD / Result, Unknown Provider - 06/24/2022 [facility] Transthoracic Echocardiography Report (TTE) Patient Name ALLOWAY Date of Study 06/24/2022 GANGA Evans Date of 1960 Gender Male Age 61 year(s) Race Room Number 0334 Height: 71 inch, 180.34 cm Corporate ID [id number] Weight: 252 pounds, 114.3 kg # Patient Acct [id number] BSA: 2.33 m^2 BMI: 35.15 kg/m^2 # MR # [id number] Software Clerk Jeanette Clarke Interpreting Physician Michelle Noe Referring Nurse Shelly Mondragon, Practitioner [employer] Interpreting Referring Physician Fellow Type of Study TTE procedure:2D Echocardiogram, M-Mode, Doppler, Color Doppler. Procedure Date Date: 06/24/2022 Start: 09:47 AM Study Location: [facility] Indications:Abnormal ECG. History / Tech. [...] Wall E' velocity:0.13 m/s Lateral Wall E/E':9.8 [facility] Work Phone: [employer] Phone: Glucose, Whole Bloodon 06-24 Glucose [Mass/Vol] [...] (Bld) [Volume fraction] 25.1 % Low 40.7-50.3 [facility] Comment on above: Performed By: #### C MPX, CDP #### [facility] [address] [place] [address] [place] [address] Pharmacist Technician: Khadar Tang MD Hemoglobin (Bld) [Mass/Vol] 7.8 g/dL Low 13.0-17.0 [facility] Comment on above: Performed By: #### C MPX, CDP #### [facility] [address] [place] [address] [place] [address] Pharmacist Technician: Khadar Tang MD Iron Binding Cap.on 06-25-19 23 % Fe Saturation 19 % Low 20-55 [facility] Comment on above: Performed By: #### C MPX, CDP #### [facility] [address] [place] [address] [place] [address] Pharmacist Technician: Khadar Tang MD Iron [Mass/Vol] 33 ug/dL Low 59-158 [facility] Comment on above: Performed By: #### C MPX, CDP #### [facility] [address] [place] [address] [place] [address] Pharmacist Technician: Khadar Tang MD Total Fe Binding Cap 175 ug/dL Low 250-450 [facility] Comment on above: Performed By: #### C MPX, CDP #### [facility] [address] [place] [address] Pharmacist Technician: Khadar Tang MD Unbound Fe Bind Cap 142 ug/dL Normal 112-347 [facility] Comment on above: Performed By: #### C MPX, CDP #### [facility] [address] [place] [address] Pharmacist Technician: Khadar Tang MD Iron and TIBCon 06-24-2022 Interpretation and review of laboratory results Abnormal [facility] Iron [Mass/Vol] 33 ug/dL Low 59 - 158 ug/dL [facility] Iron binding capacity [Mass/Vol] 175 ug/dL Low 250 - 450 ug/dL [facility] Iron Saturation 19 % Low 20 - 55 % [facility] UIBC 142 ug/dL 112 - [...] AHA Guidelines for fasting triglyceride, December 2011. [facility] Lipid Profileon 06-24-2022 Cholesterol [Mass/Vol] 147 mg/dL Normal <200 [facility] Comment on above: Result Comment: Cholesterol Guidelines: <200 Desirable 200-240 Borderline >240 Undesirable Performed By: #### T ROPI #### [facility] [address] [place] [place] [address] Pharmacist Technician: Khadar Tang MD Cholesterol in HDL [Mass/Vol] 28 mg/dL Low >40 [facility] Comment on above: Result Comment: HDL Guidelines: <40 Undesirable 40-59 Borderline >59 Desirable Performed By: #### T CINDYI #### [facility] [address] [place] [place] [address] Pharmacist Technician: Khadar Tang MD Cholesterol in LDL [Mass/Vol] 98 mg/dL Normal 0-130 [facility] Comment on above: Result Comment: LDL Guidelines: <100 Desirable 100-129 Near to/above Desirable 130-159 Borderline >159 Undesirable Direct (measured) LDL and calculated LDL are not interchangeable tests. Performed By: #### T ROPI #### [facility] [address] [place] [address] Pharmacist Technician: Khadar Tang MD Cholesterol.total/Cho lesterol in HDL [Mass ratio] 5.3 {ratio} High <5 [facility] Comment on above: Performed By: #### T ROPI #### [facility] [address] [place] [address] Pharmacist Technician: Khadar Tang MD Triglyceride [Mass/Vol] 107 mg/dL Normal <150 [facility] Comment on above: Result Comment: Triglyceride Guidelines: <150 Desirable 150-199 Borderline 200-499 High >499 Very high Based on AHA Guidelines for fasting triglyceride, December 2011. Performed By: #### T ROPI #### [facility] [address] [place] [address] Pharmacist Technician: Khadar Tang MD PTon 06-24-2022 INR Coag (PPP) [Relative time] 1.1 {INR} Normal [facility] Comment on above: Result Comment: Therapeutic Range: Moderate Anticoagulant Intensity: INR = 2.0-3.0 High Anticoagulant Intensity: INR = 2.5-3.5 Performed By: #### C MPX, CDP #### [facility] [address] [place] [address] Pharmacist Technician: Khadar Tang MD PT Coag (PPP) [Time] 14.8 s Normal 11.9-14.8 [facility] Comment on above: Performed By: #### C MPX, CDP #### [facility] [address] [place] [address] Pharmacist Technician: Khadar Tang MD PTTon 06-24-2022 aPTT [...] High Sens 57 ng/L Critically high 0-22 [facility] Comment on above: Result Comment: High Sensitivity Troponin values cannot be compared with other Troponin methodologies. Performed By: #### C MPX, CDP #### [facility] [address] [place] [address] Pharmacist Technician: Khadar Tang MD Interpretation and review of laboratory results Abnormal [facility] Troponin I.cardiac DL <= 0.01 ng/mL [Mass/Vol] 57 ng/L Critically high 0 - 22 ng/L [facility] Comment on above: High Sensitivity Tro ponin values cannot be compared with other Troponin methodologies. [facility] Troponin, High Sens 58 ng/L Critically high 0-22 [facility] Comment on above: Result Comment: High Sensitivity Troponin values cannot be compared with other Troponin methodologies. Performed By: #### T CINDYI #### [facility] [address] [place] [address] Pharmacist Technician: Khadar Tang MD Interpretation and review of laboratory results Abnormal [facility] Troponin I.cardiac DL <= 0.01 ng/mL [Mass/Vol] 58 ng/L Critically high 0 - 22 ng/L [facility] Comment on above: High Sensitivity Tro ponin values cannot be compared with other Troponin methodologies. [facility] Troponin, High Sens 59 ng/L Critically high 0-22 [facility] Comment on above: Result Comment: High Sensitivity Troponin values cannot be compared with other Troponin methodologies. Performed By: #### C MPX, CDP #### [facility] [address] [place] [address] Pharmacist Technician: Khadar Tang MD Interpretation and review of laboratory results Abnormal [facility] Troponin I.cardiac DL <= 0.01 ng/mL [Mass/Vol] 59 ng/L Critically high 0 - 22 ng/L [facility] Comment on above: High Sensitivity Tro ponin values cannot be compared with other Troponin methodologies. [facility] Type + Screenon 06-24-2022 Type + Screen Sample Expiration 06/27/2022,2359 Arm Band Number [id number] ABO/Rh(D) A NEGATIVE Antibody Screen NEGATIVE Unit Number [id number] Blood Component Type Leukocyte Reduced Red Cell Unit Division 00 Status of Unit TRANSFUSED Transfusion Status OK TO TRANSFUSE Crossmatch Result COMPATIBLE Normal [facility] Comment on above: Performed By: #### C MPX, CDP #### [facility] [address] [place] [address] Pharmacist Technician: Khadar Tang MD Vitamin B12 & Folateon 06-24 Cobalamin (Vitamin B12) [Mass/Vol] 446 pg/mL 232 - 1245 pg/mL [facility] Folate [Mass/Vol] 8.2 ng/mL 4.8 - PINF ng/mL [facility] CBC auto differentialon 05-28 Absolute Eos # 0.65 High [facility] Absolute Immature Granulocyte 0.06 [facility] Absolute Lymph # 1.94 [facility] Absolute Carver # 0.72 [facility] Basophils (Bld) [#/Vol] 0.04 10*3/uL [facility] 3.22 10*6/uL Low 4.21 - 5.77 m/uL [facility] Segmented neutrophils/100 WBC (Bld) 62 % 36 - 65 % [facility] Segs Absolute 5.55 [facility] WBC (Bld) [#/Vol] 9.0 10*3/uL [facility] CBC with Diffon 06-23-2022 Abs. Basophil 0.04 k/uL Normal 0.00-0.20 [facility] Comment on above: Performed By: #### C MPX, CDP #### [facility] [address] [place] [address] [place] [address] Pharmacist Technician: Khadar Tang MD Abs.Imm.Granulocyte 0.06 k/uL Normal 0.00-0.30 [facility] Comment on above: Performed By: #### C MPX, CDP #### [facility] [address] [place], [place] [address] Pharmacist Technician: Khadar Tang MD Abs.Neutrophil (Seg) 5.55 k/uL Normal 1.50-8.10 [facility] Comment on above: Performed By: #### C MPX, CDP #### [address] [place] [address] Pharmacist Technician: Khadar Tang MD Basophils/100 WBC (Bld) 0 % Normal 0-2 [facility] Comment on above: Performed By: #### C MPX, CDP #### [facility] [address] [place] [place] [address] Pharmacist Technician: Khadar Tang MD Eosinophils (Bld) [#/Vol] 0.65 10*3/uL High 0.00-0.44 [facility] Comment on above: Performed By: #### C MPX, CDP #### [facility] [address] [place] [place] [address] Pharmacist Technician: Khadar Tang MD Eosinophils/100 WBC (Bld) 7 % High 1-4 [facility] Comment on above: Performed By: #### C MPX, CDP #### [facility] [address] [place], [place] 6228383 Pharmacist Technician: Khadar Tang MD Erythrocyte distribution width (RBC) [Ratio] 16.4 % High 11.8-14.4 [facility] Comment on above: Performed By: #### C MPX, CDP #### [facility] [address] [place], [place] 0821783 Pharmacist Technician: Khadar Tang MD Hematocrit (Bld) [Volume fraction] 25.0 % Low 40.7-50.3 [facility] Comment on above: Performed By: #### C MPX, CDP #### [facility] [address] [place] [address] Dr. [place], [place] 1979583 Pharmacist Technician: Khadar Tang MD Hemoglobin (Bld) [Mass/Vol] 7.5 g/dL Low 13.0-17.0 [facility] Comment on above: Performed By: #### C MPX, CDP #### [address] [place], [place] 3868783 Pharmacist Technician: Khadar Tang MD Immature granulocytes/100 WBC (Bld) 1 % High 0 [facility] Comment on above: Performed By: #### C MPX, CDP #### [facility] [address] [place] [address] Dr. [place], [place] 4501283 Pharmacist Technician: Khadar Tang MD Lymphocytes (Bld) [#/Vol] 1.94 10*3/uL Normal 1.10-3.70 [facility] Comment on above: Performed By: #### C MPX, CDP #### [facility] [address] [place], [place] 6056583 Pharmacist Technician: Khadar Tang MD Lymphocytes/100 WBC (Bld) 22 % Low 24-43 [facility] Comment on above: Performed By: #### C MPX, CDP #### [facility] [address] [place], [place] [address] Pharmacist Technician: Khadar Tang MD MCH (RBC) [Entitic mass] 23.3 pg Low 25.2-33.5 [facility] Comment on above: Performed By: #### C MPX, CDP #### [facility] [address] [place], [facility]83 Pharmacist Technician: Khadar Tang MD MCHC (RBC) [Mass/Vol] 30.0 g/dL Normal 28.4-34.8 [facility] Comment on above: Performed By: #### C MPX, CDP #### [address] [place] [place] [address] Pharmacist Technician: Khadar Tang MD MCV (RBC) [Entitic vol] 77.6 fL Low 82.6-102.9 [facility] Comment on above: Performed By: #### C MPX, CDP #### [address] [place], [facility]83 Pharmacist Technician: Khadar Tang MD Monocytes (Bld) [#/Vol] 0.72 10*3/uL Normal 0.10-1.20 [facility] Comment on above: Performed By: #### C MPX, CDP #### [facility] [address] [place] [address] Dr. [place], [facility]83 Pharmacist Technician: Khadar Tang MD Monocytes/100 WBC (Bld) 8 % Normal 3-12 [facility] Comment on above: Performed By: #### C MPX, CDP #### [facility] [address] [place] [address] Pharmacist Technician: Khadar Tang MD Neutrophil (Seg) 62 % Normal 36-65 [facility] Comment on above: Performed By: #### C MPX, CDP #### [facility] [address] [place] [address] Pharmacist Technician: Khadar Tang MD NRBC Automated 0.0 per 100 WBC Normal 0.0 [facility] Comment on above: Performed By: #### C MPX, CDP #### [facility] [address] [place], [place] 4519583 Pharmacist Technician: Khadar Tang MD Platelet mean volume (Bld) [Entitic vol] 8.7 fL Normal 8.1-13.5 [facility] Comment on above: Performed By: #### C MPX, CDP #### [facility] [address] [place] [address] Pharmacist Technician: Khadar Tang MD Platelets (Bld) [#/Vol] 263 10*3/uL Normal 138-453 [facility] Comment on above: Performed By: #### C MPX, CDP #### [address] [place], [place] 8160583 Pharmacist Technician: Khadar Tang MD RBC (Bld) [#/Vol] 3.22 10*6/uL Low 4.21-5.77 [facility] Comment on above: Performed By: #### C MPX, CDP #### [address] [place] [address] Pharmacist Technician: Khadar Tang MD WBC (Bld) [#/Vol] 9.0 10*3/uL Normal 3.5-11.3 [facility] Comment on above: Performed By: #### C MPX, CDP #### [facility] [address] [place] [address] Pharmacist Technician: Khadar Tang MD Comp Metabolic Pr/rfx MGon 0 06-23-2022 Albumin [Mass/Vol] 2.9 g/dL Low 3.5-5.2 [facility] Comment on above: Performed By: #### C MPX, CDP #### [facility] [address] [place], [place] 3400183 Pharmacist Technician: Khadar Tang MD Albumin/Glob Ratio 0.7 Low 1.0-2.5 [facility] Comment on above: Performed By: #### C MPX, CDP #### [facility] [address] [place], [place] 2606183 Pharmacist Technician: Khadar Tang MD Alkaline Phos 89 U/L Normal 40-129 [facility] Comment on above: Performed By: #### C MPX, CDP #### [facility] [address] [place], [place] [id number] Pharmacist Technician: Khadar Tang MD ALT [Catalytic activity/Vol] 11 U/L Normal 5-41 [facility] Comment on above: Performed By: #### C MPX, CDP #### [facility] [address] [place], [place] 6665083 Pharmacist Technician: Khadar Tang MD Anion gap [Moles/Vol] 8 mmol/L Low 9-17 [facility] Comment on above: Performed By: #### C MPX, CDP #### [address] [place], [place] 8673683 Pharmacist Technician: Khadar Tang MD AST [Catalytic activity/Vol] 12 U/L Normal <40 [facility] Comment on above: Performed By: #### C MPX, CDP #### [facility] [address] [place], [place] [id number] Pharmacist Technician: Khadar Tang MD Bilirubin [Mass/Vol] 0.2 mg/dL Low 0.3-1.2 [facility] Comment on above: Performed By: #### C MPX, CDP #### [facility] [address] [place] [address] Pharmacist Technician: Khadar Tang MD BUN/CRE Ratio 25 High 9-20 [facility] Comment on above: Performed By: #### C MPX, CDP #### [facility] [address] [place], [place] 5695283 Pharmacist Technician: Khadar Tang MD Calcium [Mass/Vol] 9.0 mg/dL Normal 8.6-10.4 [facility] Comment on above: Performed By: #### C MPX, CDP #### [facility] [address] [place] [address] Pharmacist Technician: Khadar Tang MD Chloride [Moles/Vol] 115 mmol/L High 98-107 [facility] Comment on above: Performed By: #### C MPX, CDP #### [facility] [address] [place], [place] 4197583 Pharmacist Technician: Khadar Tang MD CO2 [Moles/Vol] 17 mmol/L Low 20-31 [facility] Comment on above: Performed By: #### C MPX, CDP #### [facility] [address] [place], [place] 9050283 Pharmacist Technician: Khadar Tang MD Creatinine [Mass/Vol] 1.55 mg/dL High 0.70-1.20 [facility] Comment on above: Performed By: #### C MPX, CDP #### [facility] [address] [place], [place] [id number] Pharmacist Technician: Khadar Tang MD GFR/1.73 sq M.predicted among non-blacks MDRD (S/P/Bld) [Vol rate/Area] 51 mL/min/{1.73_m2} Low >60 [facility] Comment on above: Result [...] Performed By: #### C MPX, CDP #### [facility] [address] [place], [place] 7276583 Pharmacist Technician: Khadar Tang MD Glucose [Mass/Vol] 119 mg/dL High 70-99 [facility] Comment on above: Performed By: #### C MPX, CDP #### [facility] [address] [place], [place] 9773983 Pharmacist Technician: Khadar Tang MD Potassium [Moles/Vol] 5.4 mmol/L High 3.7-5.3 [facility] Comment on above: Performed By: #### C MPX, CDP #### [facility] [address] [place], [place] 0612883 Pharmacist Technician: Khadar Tang MD Protein [Mass/Vol] 7.1 g/dL Normal 6.4-8.3 [facility] Comment on above: Performed By: #### C MPX, CDP #### [facility] [address] [place], [place] 2218283 Pharmacist Technician: Khadar Tang MD Sodium [Moles/Vol] 140 mmol/L Normal 135-144 [facility] Comment on above: Performed By: #### C MPX, CDP #### [facility] [address] [place], [place] 6492383 Pharmacist Technician: Khadar Tang MD Urea nitrogen [Mass/Vol] 38 mg/dL High 8-23 [facility] Comment on above: Performed By: #### C MPX, CDP #### [facility] [address] [place] [address] Pharmacist Technician: Khadar Tang MD Comprehensive Metabolic Pane l w/ Reflex to MGon 06-23-2022 Albumin [Mass/Vol] 2.9 g/dL Low 3.5 - 5.2 g/dL [facility] Albumin/Globulin [Mass ratio] 0.7 {ratio} Low 1.0 - 2.5 [facility] ALP [Catalytic activity/Vol] 89 U/L 40 - 129 U/L [facility] ALT [Catalytic activity/Vol] 11 U/L 5 - 41 U/L [facility] Anion gap [Moles/Vol] 8 mmol/L Low 9 - 17 mmol/L [facility] AST [Catalytic activity/Vol] 12 U/L NINF - 40 U/L [facility] Bilirubin [Mass/Vol] 0.2 mg/dL Low 0.3 - 1 .2 mg/dL [facility] Calcium [Mass/Vol] 9.0 mg/dL 8.6 - 10. 4 mg/dL [facility] Chloride [Moles/Vol] 115 mmol/L High 98 - 10 7 mmol/L [facility] CO2 [Moles/Vol] 17 [...] 119 mg/dL High 70 - 99 mg/dL [facility]ETTSFlexible Technologies, LLCSELECT [facility] Interpretation and review of laboratory results Abnormal [facility] Potassium [Moles/Vol] 5.4 mmol/L High 3.7 - 5.3 mmol/L [facility] Protein [Mass/Vol] 7.1 g/dL 6.4 - 8.3 g/dL [facility] Sodium [Moles/Vol] 140 mmol/L 135 - 144 mmol/L [facility] Urea nitrogen [Mass/Vol] 38 mg/dL High 8 - 23 mg/dL [facility] Urea nitrogen/Creatinine (Bld) [Mass ratio] 25 High 9 - 20 [employer] EKG 12 LeadOrdered By: Michelle Tellez hmad on 06-23-2022 Atrial Rate 60 BPM [facility] Work Phone: P [place] 55 degrees [facility] Work Phone: P-R Interval 182 ms [facility] Work Phone: Q-T Interval 388 ms [facility] Work Phone: QRS Duration 88 ms [facility] Work Phone: QTc Calculation (Bazett) 388 ms [facility] Work Phone: R [place] 15 degrees [facility] Work Phone: T [place] 40 degrees [facility] Work Phone: Ventricular Rate 60 BPM [employer] Work Phone: [facility] Work Phone: EKG 12 Leadon 06-23-2022 Poor [...] Noe MD ([id number]) on 06/23/2022 3:18:[address] [facility] Michelle Noe MD - 06/23/2022 Poor data quality, interpretation may be adversely affected Normal sinus rhythm Normal ECG When compared with ECG of 22-JUN-2022 13:14, (unconfirmed) Borderline criteria for Anterolateral infarct are no longer Present Criteria for Inferior infarct are no longer Present T wave inversion no longer evident in Inferior leads Confirmed by Michelle Noe MD ([id number]) on 06/23/2022 3:18:16 PM [facility] Work Phone: EKG Rhythm Stripon 3 [facility] Glucose, Whole Bloodon 06-23 Glucose [Mass/Vol] 230 mg/dL High 74 - 100 mg/dL [facility] Interpretation and review of laboratory results Abnormal [facility] Urinalysison 06-23-2022 Bilirubin Urine Negative NEGATIVE [facility] Color, UA Yellow Yellow [facility] [...] [Mass/Vol] Negative NEGATIVE [facility] Specific [place], UA 1.020 1.010 - 1.020 [facility] Turbidity UA Clear Clear [facility] Urine Hgb Negative NEGATIVE [facility] Urobilinogen, Urine Normal Normal [facility] Urinalysis, Routineon 2022 Bilirubin, SemiQt,Ur Negative Normal NEG [facility] Comment on above: Performed By: #### U A #### [facility] [address] [place] [address] [place] [address] Pharmacist Technician: Khadar Tang MD Blood, Urine Negative Normal NEG [facility] Comment on above: Performed By: #### U A #### [facility] [address] [place] [address] Pharmacist Technician: Khadar Tang MD Clarity (U) Clear Normal CLEAR [facility] Comment on above: Performed By: #### U A #### [facility] [address] [place] [address] Pharmacist Technician: Khadar Tang MD Color (U) Yellow Normal YEL [facility] Comment on above: Performed By: #### U A #### [facility] [address] [place], [place] 8799883 Pharmacist Technician: Khadar Tang MD Glucose Ql (U) Negative Normal NEG [facility] Comment on above: Performed By: #### U A #### [facility] [address] [place] [address] Pharmacist Technician: Khadar Tang MD Ketones Ql (U) Negative Normal NEG [facility] Comment on above: Performed By: #### U A #### [facility] [address] [place] [address] Dr. [place], [place] 4810383 Pharmacist Technician: Khadar Tang MD Leukocyte esterase Test strip Ql (U) Negative Normal NEG [facility] Comment on above: Performed By: #### U A #### [facility] [address] [place] [address] Dr. [place], [facility]83 Pharmacist Technician: Khadar Tang MD Nitrite,Ur Negative Normal [facility] Comment on above: Performed By: #### U A #### [facility] [address] [place] [address] Dr. [place], [facility]83 Pharmacist Technician: Khadar Tang MD PH,Ur 6.0 Normal 5.0-9.0 [facility] Comment on above: Performed By: #### U A #### [facility] [address] [place] [address] Pharmacist Technician: Khadar Tang MD Protein Ql (U) Negative Normal NEG [facility] Comment on above: Performed By: #### U A #### [facility] [address] [place], [place] 5797383 Pharmacist Technician: Khadar Tang MD Spec. [place],Ur 1.020 Normal 1.010-1.02 0 [facility] Comment on above: Performed By: #### U A #### [facility] [address] [place], [place] 3601583 Pharmacist Technician: Khadar Tang MD Urobilinogen,Ur Normal Normal NORM [facility] Comment on above: Performed By: #### U A #### [facility] [address] [place], [place] 5185883 Pharmacist Technician: Khadar Tang MD XR ANKLE RIGHT [...] Derrick Squires MD 06/23/22 Final result Normal [facility] 1. Nonspecific diffu se subcutaneous edema. 2. Periostitis at the lateral aspect of the fibula distally. There was osteomyelitis in this region previously. This could reflect chronic osteomyelitis. Elsewhere, there is no subcutaneous air or evidence of osteomyelitis. [facility] RIS CONSOLIDATED EXAMINATION: THREE XRAY VIEWS [...] lesion is noted. Calcaneal spurring appears unchanged. [facility] Derrick Herrera MD - 06/23/2022 EXAMINATION: THREE XRAY VIEWS [...] no subcutaneous air or evidence of osteomyelitis. [facility] Work Phone: Radiology Study observation (narrative) [facility] Work Phone: XR ANKLE RIGHT (MIN 3 VIEWS) Ordered By: Derrick Squires on 06-23-2022 [facility] Work Phone: Basic Metabolic Panelon - Anion gap [Moles/Vol] 9 mmol/L 9 - 17 mmol/L [facility] Calcium [Mass/Vol] 9.5 mg/dL 8.6 - 10. 4 mg/dL [facility] Chloride [Moles/Vol] 112 mmol/L High 98 - 10 7 mmol/L [facility] CO2 [Moles/Vol] 17 mmol/L Low 20 - 31 mmol/L [facility] Creatinine [Mass/Vol] 2 mg/dL High 0.70 - 1.20 mg/dL [facility] GFR/1.73 sq M.predicted MDRD (S/P/Bld) [Vol rate/Area] 38 mL/min/{1.73_m2} Low - PINF [facility] [...] - 23 mg/dL [facility] Urea nitrogen/Creatinine (Bld) [Mass ratio] 23 High 9 - 20 [facility] Basic Metabolic Profon 06-22 Potassium [Moles/Vol] 6.1 mmol/L Critically high 3.7-5.3 [facility] Comment on above: Performed By: #### T CINDYI #### [facility] [address] [place] [address] Pharmacist Technician: Khadar Tang MD Anion gap [Moles/Vol] 9 mmol/L Normal 9-17 [facility] Comment on above: Performed By: #### T CINDYI #### [facility] [address] [place] [address] Pharmacist Technician: Khadar Tang MD BUN/CRE Ratio 23 High 9-20 [facility] Comment on above: Performed By: #### T CINDYI #### [facility] [address] [place] [address] Pharmacist Technician: Khadar Tang MD Calcium [Mass/Vol] 9.5 mg/dL Normal 8.6-10.4 [facility] Comment on above: Performed By: #### T CINDYI #### [facility] [address] [place] [address] Pharmacist Technician: Khadar Tang MD Chloride [Moles/Vol] 112 mmol/L High 98-107 [facility] Comment on above: Performed By: #### T ROPI #### [facility] [address] [place] [address] Pharmacist Technician: Khadar Tang MD CO2 [Moles/Vol] 17 mmol/L Low 20-31 [facility] Comment on above: Performed By: #### T ROPI #### [facility] [address] [place] [address] Pharmacist Technician: Khadar Tang MD Creatinine [Mass/Vol] 2.00 mg/dL High 0.70-1.20 [facility] Comment on above: Performed By: #### T ROPI #### [facility] [address] [place] [address] Pharmacist Technician: Khadar Tang MD GFR/1.73 sq M.predicted among non-blacks MDRD (S/P/Bld) [Vol rate/Area] 38 mL/min/{1.73_m2} Low >60 [facility] Comment on above: Result [...] secretion. Performed By: #### T ROPI #### [facility] [address] [place] [address] Pharmacist Technician: Khadar Tang MD Glucose [Mass/Vol] 137 mg/dL High 70-99 [facility] Comment on above: Performed By: #### T ROPI #### [facility] [address] [place] [address] Pharmacist Technician: Khadar Tang MD Sodium [Moles/Vol] 138 mmol/L Normal 135-144 [facility] Comment on above: Performed By: #### T ROPI #### [facility] [address] [place] [address] Pharmacist Technician: Khadar Tang MD Urea nitrogen [Mass/Vol] 45 mg/dL High 8-23 [facility] Comment on above: Performed By: #### T ROPI #### [facility] [address] [place] [address] Pharmacist Technician: Khadar Tang MD CBC with Auto Differentialon 06-22-2022 Absolute Eos # 0.86 High [facility] Absolute Immature Granulocyte 0.09 [facility] Absolute Lymph # 1.97 [facility] Absolute Carver # 0.88 [facility] Basophils (Bld) [#/Vol] 0.05 10*3/uL [facility] 3.56 10*6/uL Low 4.21 - 5.77 m/uL [facility] Segmented neutrophils/100 WBC (Bld) 70 % High 36 - 65 % [facility] Segs Absolute 8.91 High [facility] WBC (Bld) [#/Vol] 12.8 10*3/uL High [facility] Absolute Eos # 0.84 High [facility] Absolute Immature Granulocyte 0.06 [facility] Absolute Lymph # 1.69 [facility] SEC[facility] Absolute Carver # 0.82 [facility] Basophils (Bld) [#/Vol] 0.04 10*3/uL [facility] 3.44 10*6/uL Low 4.21 - 5.77 m/uL [facility] Segmented neutrophils/100 WBC (Bld) 71 % High 36 - 65 % [facility] Segs Absolute 9.06 High [facility] WBC (Bld) [#/Vol] 12.5 10*3/uL High [facility] CBC with Diffon 06-22-2022 Abs. Basophil 0.05 k/uL Normal 0.00-0.20 [facility] Comment on above: Performed By: #### C DP, MG, CP #### [facility] [address] [place] [address] Dr. [place], [place] 9334383 Pharmacist Technician: Khadar Tang MD Abs.Imm.Granulocyte 0.09 k/uL Normal 0.00-0.30 [facility] Comment on above: Performed By: #### C DP, MG, CP #### [facility] [address] [place], [place] 4649383 Pharmacist Technician: Khadar Tang MD Abs.Neutrophil (Seg) 8.91 k/uL High 1.50-8.10 [facility] Comment on above: Performed By: #### C DP, MG, CP #### [facility] [address] [place] [address] Pharmacist Technician: Khadar Tang MD Basophils/100 WBC (Bld) 0 % Normal 0-2 [facility] Comment on above: Performed By: #### C DP, MG, CP #### [address] [place] [address]8783 Pharmacist Technician: Khadar Tang MD Eosinophils (Bld) [#/Vol] 0.86 10*3/uL High 0.00-0.44 [facility] Comment on above: Performed By: #### C DP, MG, CP #### [address] [place] [place] [address] Pharmacist Technician: Khadar Tang MD Eosinophils/100 WBC (Bld) 7 % High 1-4 [facility] Comment on above: Performed By: #### C DP, MG, CP #### [address] [place] [place] [address] Pharmacist Technician: Khadar Tang MD Erythrocyte distribution width (RBC) [Ratio] 16.2 % High 11.8-14.4 [facility] Comment on above: Performed By: #### C DP, MG, CP #### [address] [place] 9[address]8783 Pharmacist Technician: Khadar Tang MD Hematocrit (Bld) [Volume fraction] 27.6 % Low 40.7-50.3 [facility] Comment on above: Performed By: #### C DP, MG, CP #### [address] [place] 9[address]8783 Pharmacist Technician: Khadar Tang MD Hemoglobin (Bld) [Mass/Vol] 8.3 g/dL Low 13.0-17.0 [facility] Comment on above: Performed By: #### C DP, MG, CP #### [address] [place] [address]8783 Pharmacist Technician: Khadar Tang MD Immature granulocytes/100 WBC (Bld) 1 % High 0 [facility] Comment on above: Performed By: #### C ZANDER MG, CP #### [address] [place] [address] Pharmacist Technician: Khadar Tang MD Lymphocytes (Bld) [#/Vol] 1.97 10*3/uL Normal 1.10-3.70 [facility] Comment on above: Performed By: #### C DP MG, CP #### [address] [place], [facility]83 Pharmacist Technician: Khadar Tang MD Lymphocytes/100 WBC (Bld) 15 % Low 24-43 [facility] Comment on above: Performed By: #### C ZANDER MG, CP #### [address] [place], [facility]83 Pharmacist Technician: Khadar Tang MD MCH (RBC) [Entitic mass] 23.3 pg Low 25.2-33.5 [facility] Comment on above: Performed By: #### C ZANDER MG, CP #### [address] [place], [facility]83 Pharmacist Technician: Khadar Tang MD MCHC (RBC) [Mass/Vol] 30.1 g/dL Normal 28.4-34.8 [facility] Comment on above: Performed By: #### C ZANDER MG, CP #### [address] [place], [facility]83 Pharmacist Technician: Khadar Tang MD MCV (RBC) [Entitic vol] 77.5 fL Low 82.6-102.9 [facility] Comment on above: Performed By: #### C DP MG, CP #### [address] [place], [place] 6946883 Pharmacist Technician: Khadar Tang MD Monocytes (Bld) [#/Vol] 0.88 10*3/uL Normal 0.10-1.20 [facility] Comment on above: Performed By: #### C DP, MG, CP #### [facility] [address] [place], [place] 4580783 Pharmacist Technician: Khadar Tang MD Monocytes/100 WBC (Bld) 7 % Normal 3-12 [facility] Comment on above: Performed By: #### C DP, MG, CP #### [facility] [address] [place] [address] Pharmacist Technician: Khadar Tang MD Neutrophil (Seg) 70 % High 36-65 [facility] Comment on above: Performed By: #### C DP, MG, CP #### [facility] [address] [place], [place] 1916483 Pharmacist Technician: Khadar Tang MD NRBC Automated 0.0 per 100 WBC Normal 0.0 [facility] Comment on above: Performed By: #### C DP, MG, CP #### [address] [place], [place] 8055383 Pharmacist Technician: Khadar Tang MD Platelet mean volume (Bld) [Entitic vol] 8.6 fL Normal 8.1-13.5 [facility] Comment on above: Performed By: #### C DP, MG, CP #### [address] [place] [address] Pharmacist Technician: Khadar Tang MD Platelets (Bld) [#/Vol] 338 10*3/uL Normal 138-453 [facility] Comment on above: Performed By: #### C DP, MG, CP #### [address] [place], [place] 9970483 Pharmacist Technician: Khadar Tang MD RBC (Bld) [#/Vol] 3.56 10*6/uL Low 4.21-5.77 [facility] Comment on above: Performed By: #### C DP, MG, CP #### [facility] [address] [place], [place] 9210683 Pharmacist Technician: Khadar Tang MD WBC (Bld) [#/Vol] 12.8 10*3/uL High 3.5-11.3 [facility] Comment on above: Performed By: #### C MG ZANDER, CP #### [address] [place] [address]8783 Pharmacist Technician: Khadar Tang MD Abs. Basophil 0.04 k/uL Normal 0.00-0.20 [facility] Comment on above: Performed By: #### T ROPI #### [address] [place] [address]8783 Pharmacist Technician: Khadar Tang MD Abs.Imm.Granulocyte 0.06 k/uL Normal 0.00-0.30 [facility] Comment on above: Performed By: #### T ROPI #### [address] [place] [place] [address] Pharmacist Technician: Khadar Tang MD Abs.Neutrophil (Seg) 9.06 k/uL High 1.50-8.10 [facility] Comment on above: Performed By: #### T ROPI #### [address] [place] [place] [address] Pharmacist Technician: Khadar Tang MD Basophils/100 WBC (Bld) 0 % Normal 0-2 [facility] Comment on above: Performed By: #### T ROPI #### [address] [place] [place] [address] Pharmacist Technician: Khadar Tang MD Eosinophils (Bld) [#/Vol] 0.84 10*3/uL High 0.00-0.44 [facility] Comment on above: Performed By: #### T ROPI #### [address] [place] [address]8783 Pharmacist Technician: Khadar Tang MD Eosinophils/100 WBC (Bld) 7 % High 1-4 [facility] Comment on above: Performed By: #### T ROPI #### [facility] [address] [place], [place] 3669983 Pharmacist Technician: Khadar Tang MD Erythrocyte distribution width (RBC) [Ratio] 16.4 % High 11.8-14.4 [facility] Comment on above: Performed By: #### T ROPI #### [facility] [address] [place], [place] 8279583 Pharmacist Technician: Khadar Tang MD Hematocrit (Bld) [Volume fraction] 27.1 % Low 40.7-50.3 [facility] Comment on above: Performed By: #### T ROPI #### [facility] [address] [place] [address] Dr. [place], [place] 2736983 Pharmacist Technician: Khadar Tang MD Hemoglobin (Bld) [Mass/Vol] 8.7 g/dL Low 13.0-17.0 [facility] Comment on above: Performed By: #### T ROPI #### [address] [place], [place] 5922883 Pharmacist Technician: Khadar Tang MD Immature granulocytes/100 WBC (Bld) 1 % High 0 [facility] Comment on above: Performed By: #### T ROPI #### [facility] [address] [place] [address] Dr. [place], [place] 6473683 Pharmacist Technician: Khadar Tang MD Lymphocytes (Bld) [#/Vol] 1.69 10*3/uL Normal 1.10-3.70 [facility] Comment on above: Performed By: #### T ROPI #### [facility] [address] [place] [address] Dr. [place], [place] 0544783 Pharmacist Technician: Khadar Tang MD Lymphocytes/100 WBC (Bld) 14 % Low 24-43 [facility] Comment on above: Performed By: #### T ROPI #### [facility] [address] [place], [place] [address] Pharmacist Technician: Khadar Tang MD MCH (RBC) [Entitic mass] 25.3 pg Normal 25.2-33.5 [facility] Comment on above: Performed By: #### T ROPI #### [facility] [address] [place], [place] [address] Pharmacist Technician: Khadar Tang MD MCHC (RBC) [Mass/Vol] 32.1 g/dL Normal 28.4-34.8 [facility] Comment on above: Performed By: #### T ROPI #### [address] [place] [place] [address] Pharmacist Technician: Khadar Tang MD MCV (RBC) [Entitic vol] 78.8 fL Low 82.6-102.9 [facility] Comment on above: Performed By: #### T ROPI #### [address] [place], [place] [address] Pharmacist Technician: Khadar Tang MD Monocytes (Bld) [#/Vol] 0.82 10*3/uL Normal 0.10-1.20 [facility] Comment on above: Performed By: #### T ROPI #### [facility] [address] [place], [place] [address] Pharmacist Technician: Khadar Tang MD Monocytes/100 WBC (Bld) 7 % Normal 3-12 [facility] Comment on above: Performed By: #### T ROPI #### [facility] [address] [place], [facility] Pharmacist Technician: Khadar Tang MD Neutrophil (Seg) 71 % High 36-65 [facility] Comment on above: Performed By: #### T ROPI #### [facility] [address] [place], [place] [id number] Pharmacist Technician: Khadar Tang MD NRBC Automated 0.0 per 100 WBC Normal 0.0 [facility] Comment on above: Performed By: #### T ROPI #### [facility] [address] [place], [place] [id number] Pharmacist Technician: Khadar Tang MD Platelet mean volume (Bld) [Entitic vol] 9.4 fL Normal 8.1-13.5 [facility] Comment on above: Performed By: #### T ROPI #### [facility] [address] [place], [place] [id number] Pharmacist Technician: Khadar Tang MD Platelets (Bld) [#/Vol] 345 10*3/uL Normal 138-453 [facility] Comment on above: Performed By: #### T ROPI #### [facility] [address] [place], [facility]83 Pharmacist Technician: Khadar Tang MD RBC (Bld) [#/Vol] 3.44 10*6/uL Low 4.21-5.77 [facility] Comment on above: Performed By: #### T ROPI #### [facility] [address] [place], [place] [id number] Pharmacist Technician: Khadar Tang MD WBC (Bld) [#/Vol] 12.5 10*3/uL High 3.5-11.3 [facility] Comment on above: Performed By: #### T ROPI #### [facility] [address] [place] [address] Pharmacist Technician: Khadar Tang MD CMPon 06-22-2022 Albumin [Mass/Vol] [...] SYSTEM Bilirubin [Mass/Vol] mg/dL Low 0.3 - 1 .2 mg/dL [facility] Calcium [Mass/Vol] 9.1 mg/dL 8.6 - 10. 4 mg/dL [facility] Chloride [Moles/Vol] 110 mmol/L High 98 - 10 7 mmol/L [facility] CO2 [Moles/Vol] 16 [...] - 23 mg/dL [facility] Urea nitrogen/Creatinine (Bld) [Mass ratio] 25 High 9 - 20 [facility] Comp Metabolic Profon 2022 Bilirubin [Mass/Vol] mg/dL Low 0.3-1.2 [facility] Comment on above: Performed By: #### C DP, MG, CP #### [facility] [address] [place], [place] [id number] Pharmacist Technician: Khadar Tang MD Potassium [Moles/Vol] 6.3 mmol/L Critically high 3.7-5.3 [facility] Comment on above: Performed By: #### C DP, MG, CP #### [facility] [address] [place], [place] 3770383 Pharmacist Technician: Khadar Tang MD Albumin [Mass/Vol] 3.2 g/dL Low 3.5-5.2 [facility] Comment on above: Performed By: #### C DP, MG, CP #### [facility] [address] [place] [address] Pharmacist Technician: Khadar Tang MD Albumin/Glob Ratio 0.7 Low 1.0-2.5 [facility] Comment on above: Performed By: #### C DP, MG, CP #### [facility] [address] [place] [address] Pharmacist Technician: Khadar Tang MD Alkaline Phos 101 U/L Normal 40-129 [facility] Comment on above: Performed By: #### C DP, MG, CP #### [facility] [address] [place] [address] Pharmacist Technician: Khadar Tang MD ALT [Catalytic activity/Vol] 8 U/L Normal 5-41 [facility] Comment on above: Performed By: #### C DP, MG, CP #### [facility] [address] [place], [place] [id number] Pharmacist Technician: Khadar Tang MD Anion gap [Moles/Vol] 11 mmol/L Normal 9-17 [facility] Comment on above: Performed By: #### C DP, MG, CP #### [facility] [address] [place] [address] Pharmacist Technician: Khadar Tang MD AST [Catalytic activity/Vol] 13 U/L Normal <40 [facility] Comment on above: Performed By: #### C DP, MG, CP #### [facility] [address] [place], [place] 7673383 Pharmacist Technician: Khadar Tang MD BUN/CRE Ratio 25 High 9-20 [facility] Comment on above: Performed By: #### C DP, MG, CP #### [facility] [address] [place], [place] 8061883 Pharmacist Technician: Khadar Tang MD Calcium [Mass/Vol] 9.1 mg/dL Normal 8.6-10.4 [facility] Comment on above: Performed By: #### C DP, MG, CP #### [facility] [address] [place], [place] 0939983 Pharmacist Technician: Khadar Tang MD Chloride [Moles/Vol] 110 mmol/L High 98-107 [facility] Comment on above: Performed By: #### C DP, MG, CP #### [facility] [address] [place], [place] 8314883 Pharmacist Technician: Khadar Tang MD CO2 [Moles/Vol] 16 mmol/L Low 20-31 [facility] Comment on above: Performed By: #### C DP, MG, CP #### [facility] [address] [place] [address] Pharmacist Technician: Khadar Tang MD Creatinine [Mass/Vol] 1.93 mg/dL High 0.70-1.20 [facility] Comment on above: Performed By: #### C DP, MG, CP #### [facility] [address] [place] [address] Pharmacist Technician: Khadar Tang MD GFR/1.73 sq M.predicted among non-blacks MDRD (S/P/Bld) [Vol rate/Area] 39 mL/min/{1.73_m2} Low >60 [facility] Comment on above: Result [...] By: #### C DP, MG, CP #### [facility] [address] [place] [address] [place] [address] Pharmacist Technician: Khadar Tang MD Glucose [Mass/Vol] 148 mg/dL High 70-99 [facility] Comment on above: Performed By: #### C DP, MG, CP #### [address] [place] [address] Pharmacist Technician: Khadar Tang MD Protein [Mass/Vol] 8.1 g/dL Normal 6.4-8.3 [facility] Comment on above: Performed By: #### C DP, MG, CP #### [facility] [address] [place] [address] [place] [address] Pharmacist Technician: Khadar Tang MD Sodium [Moles/Vol] 137 mmol/L Normal 135-144 [facility] Comment on above: Performed By: #### C DP, MG, CP #### [address] [place] [address] Pharmacist Technician: Khadar Tang MD Urea nitrogen [Mass/Vol] 49 mg/dL High 8-23 [facility] Comment on above: Performed By: #### C DP, MG, CP #### [facility] [address] [place] [address] Pharmacist Technician: Khadar Tang MD EKG 12 LeadOrdered By: Michelle de la rosa on 06-22-2022 Atrial Rate 58 BPM [facility] Work Phone: P [place] 66 degrees [facility] Work Phone: P-R Interval 148 ms [facility] Work Phone: Q-T Interval 394 ms [facility] Work Phone: QRS Duration 94 ms [facility] Work Phone: QTc Calculation (Bazett) 386 ms [facility] Work Phone: R [place] 64 degrees [facility] Work Phone: T [place] -8 degrees [facility] Work Phone: Ventricular Rate 58 BPM [facility] [employer] [facility] Work Phone: [facility] Work Phone: EKG 12 Leadon 06-22-2022 Sinus bradycardia Inferior infarct , age undetermined Possible Anterolateral infarct , age undetermined Abnormal ECG When compared with ECG of 24-APR-2015 18:25, Vent. rate has decreased BY 39 BPM Borderline criteria for Anterolateral infarct are now Present T wave inversion now evident in Inferior leads QT has shortened Confirmed by Michelle Noe MD ([id number]) on 06/22/2022 10:09:[address] [facility] Michelle Noe MD - 06/22/2022 Sinus bradycardia Inferior infarct , age undetermined Possible Anterolateral infarct , age undetermined Abnormal ECG When compared with ECG of 24-APR-2015 18:25, Vent. rate has decreased BY 39 BPM Borderline criteria for Anterolateral infarct are now Present T wave inversion now evident in Inferior leads QT has shortened Confirmed by Michelle Noe MD ([id number]) on 06/22/2022 10:09:31 PM [facility] Work Phone: Magnesiumon 06-22-2022 Magnesium [Mass/Vol] 2.0 mg/dL Normal 1.6-2.6 [facility] Comment on above: Performed By: #### C DP, MG, CP #### [facility] [address] [place] [address] Pharmacist Technician: Khadar Tang MD Magnesium [Mass/Vol] 2.0 [...] by: JESUSITA PAPPAS Date: 2022-03-14 09:50 Normal [facility] GLYCOHEMOGLOBIN A1Con 2021 ADA RECOMMENDATION ADA THERAPEUTIC TARG ET 6.0 - 7.0 ACTION SUGGESTED > 7.0 Normal [facility] Comment on above: Performed By: #### A 1C #### [facility] [address] [address] [address] Juan Smith Glucose [Mass/Vol] 180 mg/dL Normal [facility] Comment on above: Performed By: #### A 1C #### [facility] [address] [address] [address] Juan Smith HbA1c (Bld) [Mass fraction] 7.9 % Critically high <=6.0 [facility] Comment on above: Performed By: #### A 1C #### [facility] [address] [address] [address] Juan Smith Cult,Aerobe/Anaerobeon 04-15 Neutrophils Specimen Description .TISSUE RIGHT MEDIAL HEEL POST IRRIGATIONSpecial Requests NOT REPORTEDDirect Exam NO NEUTROPHILS SEEN NO BACTERIA SEEN Culture METHICILLIN RESISTANT STAPHYLOCOCCUS AUREUS SCANT GROWTH For susceptibility, refer to previous culture. STREPTOCOCCI, BETA HEMOLYTIC GROUP C SCANT GROWTH DIPHTHEROIDS SCANT GROWTH NO ANAEROBIC ORGANISMS ISOLATED AT 5 DAYS Report Status FINAL 04/15/2017 Normal [facility] Comment on above: Performed By: #### A ANC ####[address] [address] Neutrophils Specimen Description .TISSUE RIGHT ANKLE PRE IRRIGATIONSpecial Requests NOT REPORTEDDirect Exam NO NEUTROPHILS SEEN RARE GRAM POSITIVE COCCI IN PAIRS Culture METHICILLIN RESISTANT STAPHYLOCOCCUS AUREUS LIGHT GROWTH For susceptibility, refer to previous culture. STREPTOCOCCI, BETA HEMOLYTIC GROUP C SCANT GROWTH NO ANAEROBIC ORGANISMS ISOLATED AT 5 DAYS Report Status FINAL 04/15/2017 [facility] Comment on above: Performed By: #### A ANC ####[address] [address] Neutrophils Specimen Description .TISSUE RIGHT MEDIAL HEEL PRE IRRIGATIONSpecial Requests NOT REPORTEDDirect Exam NO NEUTROPHILS SEEN NO BACTERIA SEEN Culture STREPTOCOCCI, BETA HEMOLYTIC GROUP C LIGHT GROWTH METHICILLIN RESISTANT STAPHYLOCOCCUS AUREUS SCANT GROWTH For susceptibility, refer to previous culture. DIPHTHEROIDS LIGHT GROWTH NO ANAEROBIC ORGANISMS ISOLATED AT 5 DAYS Report Status FINAL 04/15/2017 [facility] Comment on above: Performed By: #### A ANC ####[address] [address] Basic Metabolic Profon 04-13 (cont.) [facility] Comment on above: Result Comment: Aver age GFR for 50-59 years old: 93 mL/min/1.73sq mChronic Kidney Disease: <60 mL/min/1.73sq mKidney failure: <15 mL/min/1.73sq meGFR calculated using average adult body mass. Additional eGFR calculator available at:http://www.Tag [email or web address] See.[employer]AC Fuel/multiple_crcl_2012.htmSusan [address] [place] [address] Performed By: #### C DP, CMPX, CRP, SED, GLYHGB ####[address] [address] Anion gap 11 mmol/L Normal 9-17 [facility] Comment on above: Performed By: #### C DP, CMPX, CRP, SED, GLYHGB ####[address] [address] Calcium 8.7 mg/dL Normal 8.6-10.4 [facility] Comment on above: Performed By: #### C DP, CMPX, CRP, SED, GLYHGB ####[address] [address] Chloride 106 mmol/L Normal 98-107 [facility] Comment on above: Performed By: #### C DP, CMPX, CRP, SED, GLYHGB ####[address] [address] CO2 22 mmol/L Normal 20-31 [facility] Comment on above: Performed By: #### C DP, CMPX, CRP, SED, GLYHGB ####[address] [address] Creatinine 1.04 mg/dL Normal 0.70-1.20 [facility] Comment on above: Performed By: #### C DP, CMPX, CRP, SED, GLYHGB ####[address] [address] eGFR (non-black) mL/min/{1.73_m2} Normal >60 [facility] Comment on above: Performed By: #### C DP, CMPX, CRP, SED, GLYHGB ####[address] [address] Glucose mass conc 174 mg/dL High 70-[address] [facility] Comment on above: Performed By: #### C DP, CMPX, CRP, SED, GLYHGB ####[address] [address] Potassium molar conc 4.1 mmol/L Normal 3.7-5.3 [facility] Comment on above: Performed By: #### C DP, CMPX, CRP, SED, GLYHGB ####[address] [address] Sodium 139 mmol/L Normal 135-144 [facility] Comment on above: Performed By: #### C DP, CMPX, CRP, SED, GLYHGB ####[address] [address] Urea nitrogen 16 mg/dL Normal 6-20 [facility] Comment on above: Performed By: #### C DP, CMPX, CRP, SED, GLYHGB ####[address] [address] BUN/CRE Ratio NOT REPORTED Normal 9-20 [facility] Comment on above: Performed By: #### C DP, CMPX, CRP, SED, GLYHGB ####[address] [address] Staging: NOT REPORTED Normal [facility] Comment on above: Performed By: #### C DP, CMPX, CRP, SED, GLYHGB ####[address] [address] CBC with Diffon 04-13-2017 Abs. Basophil <0.03 Normal 0.00-0.20 [facility] Comment on above: Performed By: #### C DP, CMPX, CRP, SED, GLYHGB ####[address] [address] Abs.Neutrophil (Seg) 4.97 k/uL Normal 1.50-8.10 [facility] Comment on above: Performed By: #### C DP, CMPX, CRP, SED, GLYHGB ####[address] [address] Basophils/100 WBC Auto (Bld) 0 % Normal 0-2 [facility] Comment on above: Performed By: #### C DP, CMPX, CRP, SED, GLYHGB ####[address] [address] Eosinophils 0.24 10*3/uL Normal 0.00-0.44 [facility] Comment on above: Performed By: #### C DP, CMPX, CRP, SED, GLYHGB ####[address] [address] Eosinophils/100 leukocytes 3 % Normal 1-4 [facility] Comment on above: Performed By: #### C DP, CMPX, CRP, SED, GLYHGB ####[address] [address] Erythrocyte distribution width Auto Ratio (RBC) 14.8 % High 11.8-14.4 [facility] Comment on above: Performed By: #### C DP, CMPX, CRP, SED, GLYHGB ####[address] [address] Erythrocyte morphology ANISOCYTOSIS PRESENT Normal [facility] Comment on above: Result Comment: [address] [address] Performed By: #### C DP, CMPX, CRP, SED, GLYHGB ####[address] [address] Erythrocytes (RBC) 0.0 per 100 WBC Normal 0.0 [facility] Comment on above: Performed By: #### C DP, CMPX, CRP, SED, GLYHGB ####[address] [address] Erythrocytes (RBC) 3.42 10*6/uL Low 4.21-5.77 [facility] Comment on above: Performed By: #### C DP, CMPX, CRP, SED, GLYHGB ####[address] [address] Granulocytes/100 WBC (Bld) 0.19 k/uL Normal 0.00-0.30 [facility] Comment on above: Performed By: #### C DP, CMPX, CRP, SED, GLYHGB ####[address] [address] Hematocrit (HCT) 29.4 % Low 40.7-50.3 [facility] Comment on above: Performed By: #### C DP, CMPX, CRP, SED, GLYHGB ####[address] [address] Hemoglobin mass conc (Bld) 8.8 g/dL Low 13.0-17.0 [facility] Comment on above: Performed By: #### C DP, CMPX, CRP, SED, GLYHGB ####[address] [address] Immature granulocytes #/vol (Bld) 2 % High 0 [facility] Comment on above: Performed By: #### C DP, CMPX, CRP, SED, GLYHGB ####[address] [address] Lymphocytes 2.00 10*3/uL Normal 1.10-3.70 [facility] Comment on above: Performed By: #### C DP, CMPX, CRP, SED, GLYHGB ####[address] [address] Lymphocytes/100 leukocytes 25 % Normal 24-43 [facility] Comment on above: Performed By: #### C DP, CMPX, CRP, SED, GLYHGB ####[address] [address] MCH 25.7 pg Normal 25.2-33.5 [facility] Comment on above: Performed By: #### C DP, CMPX, CRP, SED, GLYHGB ####[address] [address] MCHC mass conc (RBC) 29.9 g/dL Normal 28.4-34.8 [facility] Comment on above: Performed By: #### C DP, CMPX, CRP, SED, GLYHGB ####[address] [address] MCV 86.0 fL Normal 82.6-102.9 [facility] Comment on above: Performed By: #### C DP, CMPX, CRP, SED, GLYHGB ####[address] [place] [address] Monocytes 0.53 10*3/uL Normal 0.10-1.20 [facility] Comment on above: Performed By: #### C DP, CMPX, CRP, SED, GLYHGB ####[address] [address] Monocytes/100 leukocytes 7 % Normal 3-12 [facility] Comment on above: Performed By: #### C DP, CMPX, CRP, SED, GLYHGB ####[address] [address] Neutrophil (Seg) 63 % Normal 36-65 [facility] Comment on above: Performed By: #### C DP, CMPX, CRP, SED, GLYHGB ####[address] [address] Platelet mean volume (PMV) 9.9 fL Normal 8.1-13.5 [facility] Comment on above: Performed By: #### C DP, CMPX, CRP, SED, GLYHGB ####[address] [address] Platelets 257 10*3/uL Normal 138-453 [facility] Comment on above: Performed By: #### C DP, CMPX, CRP, SED, GLYHGB ####[address] [address] WBC (Leukocytes) 8.0 10*3/uL Normal 3.5-11.[address] [facility] Comment on above: Performed By: #### C DP, CMPX, CRP, SED, GLYHGB ####[address] [address] [place] [address] Auto Diff Performed NOT REPORTED Normal [facility] Comment on above: Performed By: #### C DP, CMPX, CRP, SED, GLYHGB ####[id number] [place] [address] Platelets NOT REPORTED Normal [facility] Comment on above: Performed By: #### C DP, CMPX, CRP, SED, GLYHGB ####[id number] [place] [address] WBC Morphology NOT REPORTED Normal [facility] Comment on above: Performed By: #### C DP, CMPX, CRP, SED, GLYHGB ####[address] [address] Discharge Summaryon 04-13-19 18 HIM IP Note OR Manager Of Community Relations Normal [facility] Plan of Careon 04-13-2017 HIM IP Note OR Manager Of Community Relations Normal [facility] HIM IP Note OR Manager Of Community Relations Normal [facility] Progress Noteon 04-13-2017 HIM IP Note OR Manager Of Community Relations Normal [facility] HIM IP Note OR Manager Of Community Relations Normal [facility] HIM IP Note OR Manager Of Community Relations Normal [facility] HIM IP Note OR Manager Of Community Relations Normal [facility] HIM IP Note OR Manager Of Community Relations Normal [facility] HIM IP Note OR Manager Of Community Relations Normal [facility] Basic Metabolic Profon 04-12 (cont.) Normal [facility] Comment on above: Result Comment: Aver age GFR for 50-59 years old: 93 mL/min/1.73sq mChronic Kidney Disease: <60 mL/min/1.73sq mKidney failure: <15 mL/min/1.73sq meGFR calculated using average adult body mass. Additional eGFR calculator available at:http://www.Tag & See.[employer] Fuel/multiple_crcl_2012.htm[address] [address] Performed By: #### C DP, CMPX, CRP, SED, GLYHGB ####[id number] [place] [address] Anion gap 8 mmol/L Low 9-17 [facility] Comment on above: Performed By: #### C DP, CMPX, CRP, SED, GLYHGB ####[address] [address] Calcium 8.8 mg/dL Normal 8.6-10.4 [facility] Comment on above: Performed By: #### C DP, CMPX, CRP, SED, GLYHGB ####[address] [address] Chloride 107 mmol/L Normal 98-107 [facility] Comment on above: Performed By: #### C DP, CMPX, CRP, SED, GLYHGB ####[address] [address] CO2 23 mmol/L Normal 20-31 [facility] Comment on above: Performed By: #### C DP, CMPX, CRP, SED, GLYHGB ####[address] [address] Creatinine 1.01 mg/dL Normal 0.70-1.20 [facility] Comment on above: Performed By: #### C DP, CMPX, CRP, SED, GLYHGB ####[id number] [place] [address] eGFR (non-black) mL/min/{1.73_m2} Normal >60 [facility] Comment on above: Performed By: #### C DP, CMPX, CRP, SED, GLYHGB ####[address] [address] Glucose mass conc 172 mg/dL High 70-[address] [facility] Comment on above: Performed By: #### C DP, CMPX, CRP, SED, GLYHGB ####[address] [address] Potassium molar conc 3.9 mmol/L Normal 3.7-5.3 [facility] Comment on above: Performed By: #### C DP, CMPX, CRP, SED, GLYHGB ####[address] [address] Sodium 138 mmol/L Normal 135-144 [facility] Comment on above: Performed By: #### C DP, CMPX, CRP, SED, GLYHGB ####[address] [address] Urea nitrogen 15 mg/dL Normal 6-20 [facility] Comment on above: Performed By: #### C DP, CMPX, CRP, SED, GLYHGB ####[address] [address] BUN/CRE Ratio NOT REPORTED Normal - [facility] Comment on above: Performed By: #### C DP, CMPX, CRP, SED, GLYHGB ####[address] [address] Staging: NOT REPORTED Normal [facility] Comment on above: Performed By: #### C DP, CMPX, CRP, SED, GLYHGB ####[address] [address] CBC with Diffon 04-12-2017 Abs. Basophil <0.03 Normal 0.00-0.20 [facility] Comment on above: Performed By: #### C DP, CMPX, CRP, SED, GLYHGB ####[address] [address] Abs.Neutrophil (Seg) 4.31 k/uL Normal 1.50-8.10 [facility] Comment on above: Performed By: #### C DP, CMPX, CRP, SED, GLYHGB ####[address] [address] Basophils/100 WBC Auto (Bld) 0 % Normal 0-2 [facility] Comment on above: Performed By: #### C DP, CMPX, CRP, SED, GLYHGB ####[address] [address] Eosinophils 0.21 10*3/uL Normal 0.00-0.44 [facility] Comment on above: Performed By: #### C DP, CMPX, CRP, SED, GLYHGB ####[address] [address] Eosinophils/100 leukocytes 3 % Normal 1-4 [facility] Comment on above: Performed By: #### C DP, CMPX, CRP, SED, GLYHGB ####[address] [address] Erythrocyte distribution width Auto Ratio (RBC) 14.7 % High 11.8-14.4 [facility] Comment on above: Performed By: #### C DP, CMPX, CRP, SED, GLYHGB ####[address] [address] Erythrocyte morphology ANISOCYTOSIS PRESENT Normal [facility] Comment on above: Result Comment: [id number] [place] [address] Performed By: #### C DP, CMPX, CRP, SED, GLYHGB ####[address] [address] Erythrocytes (RBC) 3.45 10*6/uL Low 4.21-5.77 [facility] Comment on above: Performed By: #### C DP, CMPX, CRP, SED, GLYHGB ####[address] [address] Granulocytes/100 WBC (Bld) 0.22 k/uL Normal 0.00-0.30 [facility] Comment on above: Performed By: #### C DP, CMPX, CRP, SED, GLYHGB ####[address] [address] Hematocrit (HCT) 28.9 % Low 40.7-50.3 [facility] Comment on above: Performed By: #### C DP, CMPX, CRP, SED, GLYHGB ####[address] [address] Hemoglobin mass conc (Bld) 8.9 g/dL Low 13.0-17.0 [facility] Comment on above: Performed By: #### C DP, CMPX, CRP, SED, GLYHGB ####[address] [address] Immature granulocytes #/vol (Bld) 3 % High 0 [facility] Comment on above: Performed By: #### C DP, CMPX, CRP, SED, GLYHGB ####[address] [address] Lymphocytes 1.83 10*3/uL Normal 1.10-3.70 [facility] Comment on above: Performed By: #### C DP, CMPX, CRP, SED, GLYHGB ####[address] [address] Lymphocytes/100 leukocytes 26 % Normal 24-43 [facility] Comment on above: Performed By: #### C DP, CMPX, CRP, SED, GLYHGB ####[address] [address] MCH 25.8 pg Normal 25.2-33.5 [facility] Comment on above: Performed By: #### C DP, CMPX, CRP, SED, GLYHGB ####[address] [address] MCHC mass conc (RBC) 30.8 g/dL Normal 28.4-34.8 [facility] Comment on above: Performed By: #### C DP, CMPX, CRP, SED, GLYHGB ####[address] [address] MCV 83.8 fL Normal 82.6-102.9 [facility] Comment on above: Performed By: #### C DP, CMPX, CRP, SED, GLYHGB ####[address] [address] Monocytes 0.58 10*3/uL Normal 0.10-1.20 [facility] Comment on above: Performed By: #### C DP, CMPX, CRP, SED, GLYHGB ####[address] [address] Monocytes/100 leukocytes 8 % Normal 3-12 [facility] Comment on above: Performed By: #### C DP, CMPX, CRP, SED, GLYHGB ####[address] [address] Neutrophil (Seg) 60 % Normal 36-65 [facility] Comment on above: Performed By: #### C DP, CMPX, CRP, SED, GLYHGB ####[address] [address] Platelet mean volume (PMV) 9.3 fL Normal 8.1-13.5 [facility] Comment on above: Performed By: #### C DP, CMPX, CRP, SED, GLYHGB ####[address] [address] Platelets 231 10*3/uL Normal 138-453 [facility] Comment on above: Performed By: #### C DP, CMPX, CRP, SED, GLYHGB ####[facility] [id number] [place] [address] WBC (Leukocytes) 7.2 10*3/uL Normal 3.5-11.[address] [facility] Comment on above: Performed By: #### C DP, CMPX, CRP, SED, GLYHGB ####[facility] [address] [address] Auto Diff Performed NOT REPORTED Normal [facility] Comment on above: Performed By: #### C DP, CMPX, CRP, SED, GLYHGB ####[address] [address] Platelets NOT REPORTED Normal [facility] Comment on above: Performed By: #### C DP, CMPX, CRP, SED, GLYHGB ####[address] [address] WBC Morphology NOT REPORTED Normal [facility] Comment on above: Performed By: #### C DP, CMPX, CRP, SED, GLYHGB ####[address] [address] Cult,Aerobe/Anaerobeon 04-12 Neutrophils Specimen Description .TISSUE RIGHT [...] NOT REPORTEDTrimethoprim/Sulfa <=10 SUSCEPTIBLEVancomycin 1 SUSCEPTIBLE Normal [facility] Comment on above: Performed By: #### A ANC ####[address] [place], [place] [id number] Plan of Careon 04-12-2017 HIM IP Note OR Manager Of Community Relations Normal [facility] HIM IP Note OR Manager Of Community Relations Normal [facility] HIM IP Note OR Manager Of Community Relations Normal [facility] HIM IP Note OR Manager Of Community Relations Normal [facility] HIM IP Note OR Manager Of Community Relations Normal [facility] Progress Noteon 04-12-2017 HIM IP Note OR Manager Of Community Relations Normal [facility] HIM IP Note OR Manager Of Community Relations Normal [facility] HIM IP Note OR Manager Of Community Relations Normal [facility] HIM IP Note OR Manager Of Community Relations Normal [facility] HIM IP Note OR Manager Of Community Relations Normal [facility] HIM IP Note OR Manager Of Community Relations Normal [facility] Basic Metabolic Profon 04-11 (cont.) Normal [facility] Comment on above: Result Comment: Aver age GFR for 50-59 years old: 93 mL/min/1.73sq mChronic Kidney Disease: <60 mL/min/1.73sq mKidney failure: <15 mL/min/1.73sq meGFR calculated using average adult body mass. Additional eGFR calculator available at:http://www.Tag & See.[employer] Fuel/multiple_crcl_2012.htm[facility] [address] [place] [address] Performed By: #### C DP, CMPX, CRP, SED, GLYHGB ####[facility] [place] [address] Anion gap 14 mmol/L Normal 9-17 [facility] Comment on above: Performed By: #### C DP, CMPX, CRP, SED, GLYHGB ####[facility] [place] [address] Calcium 8.2 mg/dL Low 8.6-10.4 [facility] Comment on above: Performed By: #### C DP, CMPX, CRP, SED, GLYHGB ####[address] [place] [address] Chloride 101 mmol/L Normal 98-107 [facility] Comment on above: Performed By: #### C DP, CMPX, CRP, SED, GLYHGB ####[address] [address] CO2 21 mmol/L Normal 20-31 [facility] Comment on above: Performed By: #### C DP, CMPX, CRP, SED, GLYHGB ####[address] [address] Creatinine 1.16 mg/dL Normal 0.70-1.20 [facility] Comment on above: Performed By: #### C DP, CMPX, CRP, SED, GLYHGB ####[address] [address] eGFR (non-black) mL/min/{1.73_m2} Normal >60 Me [facility] Comment on above: Performed By: #### C DP, CMPX, CRP, SED, GLYHGB ####[address] [address] Glucose mass conc 153 mg/dL High 70-[address] [facility] Comment on above: Performed By: #### C DP, CMPX, CRP, SED, GLYHGB ####[address] [place] [address] Potassium molar conc 4.0 mmol/L Normal 3.7-5.3 [facility] Comment on above: Performed By: #### C DP, CMPX, CRP, SED, GLYHGB ####[facility] [address] [place] [address] Sodium 136 mmol/L Normal 135-144 [facility] Comment on above: Performed By: #### C DP, CMPX, CRP, SED, GLYHGB ####[facility] [address] [place] [address] Urea nitrogen 18 mg/dL Normal - [facility] Comment on above: Performed By: #### C DP, CMPX, CRP, SED, GLYHGB ####[address] [address] BUN/CRE Ratio NOT REPORTED Normal - [facility] Comment on above: Performed By: #### C DP, CMPX, CRP, SED, GLYHGB ####[address] [address] Staging: NOT REPORTED Normal [facility] Comment on above: Performed By: #### C DP, CMPX, CRP, SED, GLYHGB ####[address] [address] C-Reactive Proteinon 018 C reactive protein (CRP) 55.5 mg/L High 0.0-5.0 [facility] Comment on above: Result Comment: [address] [address] Performed By: #### C DP, CMPX, CRP, SED, GLYHGB ####[address] [address] CBC with Diffon 04-11-2017 Abs. Basophil <0.03 Normal 0.00-0.20 [facility] Comment on above: Performed By: #### C DP, CMPX, CRP, SED, GLYHGB ####[facility] [address] [place] [address] Abs.Neutrophil (Seg) 5.04 k/uL Normal 1.50-8.10 [facility] Comment on above: Performed By: #### C DP, CMPX, CRP, SED, GLYHGB ####[address] [address] Basophils/100 WBC Auto (Bld) 0 % Normal 0-2 [facility] Comment on above: Performed By: #### C DP, CMPX, CRP, SED, GLYHGB ####[address] [address] Eosinophils 0.24 10*3/uL Normal 0.00-0.44 [facility] Comment on above: Performed By: #### C DP, CMPX, CRP, SED, GLYHGB ####[address] [address] Eosinophils/100 leukocytes 3 % Normal 1-4 [facility] Comment on above: Performed By: #### C DP, CMPX, CRP, SED, GLYHGB ####[address] [address] Erythrocyte distribution width Auto Ratio (RBC) 14.8 % High 11.8-14.4 [facility] Comment on above: Performed By: #### C DP, CMPX, CRP, SED, GLYHGB ####[address] [address] Erythrocyte morphology ANISOCYTOSIS PRESENT Normal [facility] Comment on above: Result Comment: [address] [place] [address] Performed By: #### C DP, CMPX, CRP, SED, GLYHGB ####[address] [address] Erythrocytes (RBC) 3.36 10*6/uL Low 4.21-5.77 [facility] Comment on above: Performed By: #### C DP, CMPX, CRP, SED, GLYHGB ####[address] [address] Granulocytes/100 WBC (Bld) 0.09 k/uL Normal 0.00-0.30 [facility] Comment on above: Performed By: #### C DP, CMPX, CRP, SED, GLYHGB ####[address] [address] Hematocrit (HCT) 28.8 % Low 40.7-50.3 [facility] Comment on above: Performed By: #### C DP, CMPX, CRP, SED, GLYHGB ####[address] [address] Hemoglobin mass conc (Bld) 8.8 g/dL Low 13.0-17.0 [facility] Comment on above: Performed By: #### C DP, CMPX, CRP, SED, GLYHGB ####[address] [address] Immature granulocytes #/vol (Bld) 1 % High 0 [facility] Comment on above: Performed By: #### C DP, CMPX, CRP, SED, GLYHGB ####[address] [address] Lymphocytes 1.73 10*3/uL Normal 1.10-3.70 [facility] Comment on above: Performed By: #### C DP, CMPX, CRP, SED, GLYHGB ####[address] [address] Lymphocytes/100 leukocytes 23 % Low 24-43 [facility] Comment on above: Performed By: #### C DP, CMPX, CRP, SED, GLYHGB ####[address] [address] MCH 26.2 pg Normal 25.2-33.5 [facility] Comment on above: Performed By: #### C DP, CMPX, CRP, SED, GLYHGB ####[address] [address] MCHC mass conc (RBC) 30.6 g/dL Normal 28.4-34.8 [facility] Comment on above: Performed By: #### C DP, CMPX, CRP, SED, GLYHGB ####[address] [address] MCV 85.7 fL Normal 82.6-102.9 [facility] Comment on above: Performed By: #### C DP, CMPX, CRP, SED, GLYHGB ####[address] [address] Monocytes 0.56 10*3/uL Normal 0.10-1.20 [facility] Comment on above: Performed By: #### C DP, CMPX, CRP, SED, GLYHGB ####[place] [address] Monocytes/100 leukocytes 7 % Normal 3-12 [facility] Comment on above: Performed By: #### C DP, CMPX, CRP, SED, GLYHGB ####[place] [address] Neutrophil (Seg) 66 % High 36-65 [facility] Comment on above: Performed By: #### C DP, CMPX, CRP, SED, GLYHGB ####[address] [address] Platelet mean volume (PMV) 9.9 fL Normal 8.1-13.5 [facility] Comment on above: Performed By: #### C DP, CMPX, CRP, SED, GLYHGB ####[address] [place] [address] Platelets 264 10*3/uL Normal 138-453 [facility] Comment on above: Performed By: #### C DP, CMPX, CRP, SED, GLYHGB ####[address] [address] WBC (Leukocytes) 7.7 10*3/uL Normal 3.5-11.[address] [facility] Comment on above: Performed By: #### C DP, CMPX, CRP, SED, GLYHGB ####[address] [address] Auto Diff Performed NOT REPORTED Normal [facility] Comment on above: Performed By: #### C DP, CMPX, CRP, SED, GLYHGB ####[address] [address] Platelets NOT REPORTED Normal [facility] Comment on above: Performed By: #### C DP, CMPX, CRP, SED, GLYHGB ####[address] [address] WBC Morphology NOT REPORTED Normal [facility] Comment on above: Performed By: #### C DP, CMPX, CRP, SED, GLYHGB ####[address] [address] Hemoglobin A1Con 04-11-2017 Glucose mass conc 315 mg/dL Normal [facility] Comment on above: Result Comment: The ADA and AACC recommend providing the estimated average glucose result to permit better patient understanding of their HBA1c result.[address] [address] Performed By: #### C DP, CMPX, CRP, SED, GLYHGB ####[address] [address] Hemoglobin A1c/Hemoglobin.total mass fraction (Bld) 12.6 % High 4.0-6.0 [facility] Comment on above: Performed By: #### C DP, CMPX, CRP, SED, GLYHGB ####[address] [place] [address] Plan of Careon 04-11-2017 HIM IP Note OR Manager Of Community Relations Normal [facility] HIM IP Note OR Manager Of Community Relations Normal [facility] HIM IP Note OR Manager Of Community Relations Normal [facility] HIM IP Note OR Manager Of Community Relations Normal [facility] Progress Noteon 04-11-2017 HIM IP Note OR Manager Of Community Relations Normal [facility] HIM IP Note OR Manager Of Community Relations [facility] HIM IP Note OR Manager Of Community Relations [facility] HIM IP Note OR Manager Of Community Relations [facility] Consulton 04-10-2017 HIM IP Note OR Manager Of Community Relations Normal [facility] Cult,Urine,Cathon 04-10-2017 Cult,Urine,Cath Specimen Description .CATHETERIZED URINE Special Requests NOT REPORTED Culture PRESUMPTIVE ID: LEO ALBICANS >[id number] CFU/ML Report Status FINAL 04/10/2017 Normal [facility] Comment on above: Performed By: #### C DP, CMPX, CRP, SED, GLYHGB ####[address] [address] Influenza A + B, PCRon 04-10 Influenza A + B, PCR Specimen Descriptio n .NASOPHARYNGEAL SWABSpecial Requests NOT REPORTEDDirect Exam NEGATIVE: Influenza A and B RNA not detected by nucleic acid amplification. The results obtained should be interpreted in conjunction with clinical findings and other laboratory markers. The performance characterisitics of this molecular test were validated by the molecular microbiology department of [facility] [employer]. Report Status FINAL 04/10/2017 [facility] Comment on above: Performed By: #### C DP, CMPX, CRP, SED, GLYHGB ####[address] [place], [place] [id number] OPERATIVE REPORTon 8 OPERATIVE REPORT [address] [address] OPERATIVE REPORTPATIENT NAME: GANGA STINSON : 1960MED REC NO: [id number] [id number] [id number] ADMIT DATE: 04/09/2017PROVIDER: William Foster-JudgeDATE OF PROCEDURE: 04/10/2016SURGEON: William Foster-Coring Machine Operator, DPMASSISTANT: Benito Chacon DPM, PGY-1PREOPERATIVE DIAGNOSES:1. Deep [...] for recovery. 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 The department of Infectious Disease,Internal Medicine, and specialty medicine services will provide care duringthe inpatient admission. He will return to the care of Dr. Min [place], [place], upon discharge.INDICATIONS FOR OPERATION: This is [...] He would follow up with his usual forge shop supervisor on anoutpatient basis. The departments of Internal Medicine and InfectiousDisease will guide our care in the interim. Cultures should be availablewith sensitivities in approximately 72 hours and consider dischargeplanning then.WILLIAM FOSTER-JUDGED: 04/10/2017 15:31:53 MS/V_SSROR_IJob#: [id number] Doc#: [id number]: Yakov Min Benito [place] Department of Infectious Disease Internal Medicine Normal [facility] Plan of Careon 04-10-2017 HIM IP Note OR Manager Of Community Relations Normal [facility] HIM IP Note OR Manager Of Community Relations Normal [facility] Progress Noteon 04-10-2017 HIM IP Note OR Manager Of Community Relations Normal [facility] HIM IP Note OR Manager Of Community Relations Normal [facility] XR ANKLE RIGHT STANDARDon XR ANKLE [...] Bakerigned by:Roberto Carlos Cavazos MD04/09/17inal result Normal [facility] C-Reactive Proteinon 018 C reactive protein (CRP) 114.3 mg/L High 0.0-5.0 [facility] Comment on above: Result Comment: [address] [place] [address] Performed By: #### C DP, CMPX, CRP, SED, GLYHGB ####[employer] [place] [address] CBC with Diffon 04-09-2017 Abs. Basophil <0.03 Normal 0.00-0.20 [facility] Comment on above: Performed By: #### C DP, CMPX, CRP, SED, GLYHGB ####[address] [address] Abs.Neutrophil (Seg) 5.95 k/uL Normal 1.50-8.10 [facility] Comment on above: Performed By: #### C DP, CMPX, CRP, SED, GLYHGB ####[address] [address] Basophils/100 WBC Auto (Bld) 0 % Normal 0-2 [facility] Comment on above: Performed By: #### C DP, CMPX, CRP, SED, GLYHGB ####[address] [address] Eosinophils 0.11 10*3/uL Normal 0.00-0.44 [facility] Comment on above: Performed By: #### C DP, CMPX, CRP, SED, GLYHGB ####[address] [address] Eosinophils/100 leukocytes 1 % Normal 1-4 [facility] Comment on above: Performed By: #### C DP, CMPX, CRP, SED, GLYHGB ####[address] [address] Erythrocyte distribution width Auto Ratio (RBC) 15.0 % High 11.8-14.4 [facility] Comment on above: Performed By: #### C DP, CMPX, CRP, SED, GLYHGB ####[address] [address] Erythrocyte morphology ANISOCYTOSIS PRESENT Normal [facility] Comment on above: Result Comment: [address] [address] Performed By: #### C DP, CMPX, CRP, SED, GLYHGB ####[address] [address] Erythrocytes (RBC) 3.50 10*6/uL Low 4.21-5.77 [facility] Comment on above: Performed By: #### C DP, CMPX, CRP, SED, GLYHGB ####[address] [address] Granulocytes/100 WBC (Bld) 0.09 k/uL Normal 0.00-0.30 [facility] Comment on above: Performed By: #### C DP, CMPX, CRP, SED, GLYHGB ####[address] [address] Hematocrit (HCT) 29.9 % Low 40.7-50.3 [facility] Comment on above: Performed By: #### C DP, CMPX, CRP, SED, GLYHGB ####[address] [address] Hemoglobin mass conc (Bld) 9.0 g/dL Low 13.0-17.0 [facility] Comment on above: Performed By: #### C DP, CMPX, CRP, SED, GLYHGB ####[address] [address] Immature granulocytes #/vol (Bld) 1 % High 0 [facility] Comment on above: Performed By: #### C DP, CMPX, CRP, SED, GLYHGB ####[address] [address] Lymphocytes 1.60 10*3/uL Normal 1.10-3.70 [facility] Comment on above: Performed By: #### C DP, CMPX, CRP, SED, GLYHGB ####[address] [address] Lymphocytes/100 leukocytes 19 % Low 24-43 [facility] Comment on above: Performed By: #### C DP, CMPX, CRP, SED, GLYHGB ####[address] [address] MCH 25.7 pg Normal 25.2-33.5 [facility] Comment on above: Performed By: #### C DP, CMPX, CRP, SED, GLYHGB ####[address] [address] MCHC mass conc (RBC) 30.1 g/dL Normal 28.4-34.8 [facility] Comment on above: Performed By: #### C DP, CMPX, CRP, SED, GLYHGB ####[address] [address] MCV 85.4 fL Normal 82.6-102.9 [facility] Comment on above: Performed By: #### C DP, CMPX, CRP, SED, GLYHGB ####[address] [address] Monocytes 0.53 10*3/uL Normal 0.10-1.20 [facility] Comment on above: Performed By: #### C DP, CMPX, CRP, SED, GLYHGB ####[address] [address] Monocytes/100 leukocytes 6 % Normal 3-12 [facility] Comment on above: Performed By: #### C DP, CMPX, CRP, SED, GLYHGB ####[address] [address] Neutrophil (Seg) 73 % High 36-65 [facility] Comment on above: Performed By: #### C DP, CMPX, CRP, SED, GLYHGB ####[address] [address] Platelet mean volume (PMV) 9.6 fL Normal 8.1-13.5 [facility] Comment on above: Performed By: #### C DP, CMPX, CRP, SED, GLYHGB ####[facility] [address] [place] [address] Platelets 224 10*3/uL Normal 138-453 [facility] Comment on above: Performed By: #### C DP, CMPX, CRP, SED, GLYHGB ####[address] [address] WBC (Leukocytes) 8.3 10*3/uL Normal 3.5-11.[address] [facility] Comment on above: Performed By: #### C DP, CMPX, CRP, SED, GLYHGB ####[address] [address] Auto Diff Performed NOT REPORTED Normal [facility] Comment on above: Performed By: #### C DP, CMPX, CRP, SED, GLYHGB ####[address] [address] Platelets NOT REPORTED Normal [facility] Comment on above: Performed By: #### C DP, CMPX, CRP, SED, GLYHGB ####[address] [address] WBC Morphology NOT REPORTED Normal [facility] Comment on above: Performed By: #### C DP, CMPX, CRP, SED, GLYHGB ####[address] [address] Comp Metabolic Pr/rfx MGon 0 - (cont.) Normal [facility] Comment on above: Result Comment: Aver age GFR for 50-59 years old: 93 mL/min/1.73sq mChronic Kidney Disease: <60 mL/min/1.73sq mKidney failure: <15 mL/min/1.73sq meGFR calculated using average adult body mass. Additional eGFR calculator available at:http://www.Tag & See.com/multiple_crcl_2012.htm[facility] [address] [place] [address] Performed By: #### C DP, CMPX, CRP, SED, GLYHGB ####[address] [address] Alanine aminotransferase (ALT) 9 U/L Normal 5-41 [facility] Comment on above: Performed By: #### C DP, CMPX, CRP, SED, GLYHGB ####[address] [address] Albumin 2.8 g/dL Low 3.5-5.2 [facility] Comment on above: Performed By: #### C DP, CMPX, CRP, SED, GLYHGB ####[address] [address] Albumin/Globulin Ratio 0.7 {ratio} Low 1.0-2.5 [facility] Comment on above: Performed By: #### C DP, CMPX, CRP, SED, GLYHGB ####[address] [address] Alkaline Phos 57 U/L Normal 40-129 [facility] Comment on above: Performed By: #### C DP, CMPX, CRP, SED, GLYHGB ####[address] [address] Anion gap 13 mmol/L Normal 9-17 [facility] Comment on above: Performed By: #### C DP, CMPX, CRP, SED, GLYHGB ####[address] [address] Aspartate aminotransferase (AST) 9 U/L Normal <40 [facility] Comment on above: Performed By: #### C DP, CMPX, CRP, SED, GLYHGB ####[address] [address] Bilirubin Ql (U) 0.26 mg/dL Low 0.3-1.2 [facility] Comment on above: Performed By: #### C DP, CMPX, CRP, SED, GLYHGB ####[facility] [address] [place] [address] Calcium 8.4 mg/dL Low 8.6-10.4 [facility] Comment on above: Performed By: #### C DP, CMPX, CRP, SED, GLYHGB ####[address] [address] Chloride 99 mmol/L Normal 98-107 [facility] Comment on above: Performed By: #### C DP, CMPX, CRP, SED, GLYHGB ####[address] [address] CO2 21 mmol/L Normal 20-31 [facility] Comment on above: Performed By: #### C DP, CMPX, CRP, SED, GLYHGB ####[address] [address] Creatinine 1.13 mg/dL Normal 0.70-1.20 [facility] Comment on above: Performed By: #### C DP, CMPX, CRP, SED, GLYHGB ####[address] [place] [address] eGFR (non-black) mL/min/{1.73_m2} Normal >60 [facility] Comment on above: Performed By: #### C DP, CMPX, CRP, SED, GLYHGB ####[address] [place] [address] Glucose mass conc 267 mg/dL High 70-[address] [facility] Comment on above: Performed By: #### C DP, CMPX, CRP, SED, GLYHGB ####[address] [place] [address] Potassium molar conc 4.3 mmol/L Normal 3.7-5.3 [facility] Comment on above: Performed By: #### C DP, CMPX, CRP, SED, GLYHGB ####[address] [place] [address] Protein 7.0 g/dL Normal 6.4-8.3 [facility] Comment on above: Performed By: #### C DP, CMPX, CRP, SED, GLYHGB ####[address] [address] Sodium 133 mmol/L Low 135-144 [facility] Comment on above: Performed By: #### C DP, CMPX, CRP, SED, GLYHGB ####[address] [address] Urea nitrogen 22 mg/dL High 6-20 [facility] Comment on above: Performed By: #### C DP, CMPX, CRP, SED, GLYHGB ####[address] [place] [address] BUN/CRE Ratio NOT REPORTED Normal -20 [facility] Comment on above: Performed By: #### C DP, CMPX, CRP, SED, GLYHGB ####[address] [address] Staging: NOT REPORTED Normal [facility] Comment on above: Performed By: #### C DP, CMPX, CRP, SED, GLYHGB ####[address] [address] Consulton 04-09-2017 HIM IP Note OR Manager Of Community Relations [facility] HIM IP Note OR Manager Of Community Relations [facility] HIM IP Note OR Manager Of Community Relations [facility] Flu A/B Ag Detectionon 04-09 Flu A/B Ag Detection Specimen Descriptio n .NASOPHARYNGEAL SWABSpecial Requests NOT REPORTEDDirect Exam PRESUMPTIVE NEGATIVE for Influenza A + B antigens. PCR testing to confirm this result is available upon request. Specimen will be saved in the laboratory for 7 days. Please call [phone] if PCR testing is indicated. Report Status FINAL 04/09/2017 Normal [facility] Comment on above: Performed By: #### C DP, CMPX, CRP, SED, GLYHGB ####[facility] [place] [address] History and Physicalon 04-09 HIM IP Note OR Manager Of Community Relations Normal [facility] MRI FOOT RIGHT W WO CONTRAST [...] suspected despite a lack of definitive precontrast L5xtisbaqf changes.Large ulcer overlying the lateral malleolus with underlying osteomyelitis.Interpreted by:SAMMI Tellezigned by:Jesusita Mock MD04/09/17inal result Normal [facility] Op Noteon 04-09-2017 HIM IP Note OR Manager Of Community Relations Normal [facility] Plan of Careon 04-09-2017 HIM IP Note OR Manager Of Community Relations [facility] HIM IP Note OR Manager Of Community Relations [facility] Progress Noteon 04-09-2017 HIM IP Note OR Manager Of Community Relations [facility] HIM IP Note OR Manager Of Community Relations [facility] HIM IP Note OR Manager Of Community Relations [facility] RSV Ag Detectionon 8 RSV Ag Detection Specimen Description .NASOPHARYNGEAL SWABSpecial Requests NOT REPORTEDDirect Exam Presumptive negative for the presence of RSV antigen. PCR testing to confirm this result is available upon request. Specimen will be saved in the laboratory for 7 days. Please call [phone] if PCR testing is indicated. Report Status FINAL 04/09/2017 [facility] Comment on above: Performed By: #### C DP, CMPX, CRP, SED, GLYHGB ####[employer] [place] [address] Sedimentation Rateon 018 Sedimentation Rate 80 mm High 0-10 [facility] Comment on above: Result Comment: [facility] [place] [address] Performed By: #### C DP, CMPX, CRP, SED, GLYHGB ####[facility] [address] [place] [address] XR FOOT RIGHT STANDARDon XR FOOT RIGHT [...] by:SAMMI Tellezigned by:Jesusita Mock MD04/09/17inal result Normal [facility] Vital Signs Date Time Vital Sign Value Performing Clinician Facility 07-31-2024 10:49-0400 Body height 180.3 cm Fidel Abbott MD Work Phone: [facility] 07-31-2024 10:49-0400 Body temperature 97.5 [degF] Fidel Abbott MD Work Phone: [facility] 07-31-2024 10:49-0400 Diastolic blood pressure 70 mm[Hg] Fidel Abbott MD Work Phone: [facility] 07-31-2024 10:49-0400 Heart rate 57 /min Fidel Abbott MD Work Phone: [facility] 07-31-2024 10:49-0400 Respiratory rate 18 /min Fidel Abbott MD Work Phone: [facility] 07-31-2024 10:49-0400 SaO2% (BldA) [Mass fraction] 98 % Fidel Abbott MD Work Phone: [facility] 07-31-2024 10:49-0400 Systolic blood pressure 142 mm[Hg] Fidel Abbott MD Work Phone: [facility] 03-14-2024 11:23-0500 Body height 180.34 cm Fidel Abbott MD Work Phone: [facility] 03-14-2024 11:23-0500 Body mass index (BMI) [Ratio] 31.4 kg/m2 Fidel Abbott MD Work Phone: [facility] 03-14-2024 11:23-0500 Body weight 102.05 kg Fidel Abbott MD Work Phone: [facility] 03-14-2024 10:50-0500 Body temperature 98.2 [degF] Fidel Abbott MD Work Phone: [facility] 03-14-2024 10:50-0500 Diastolic blood pressure 67 mm[Hg] Fidel Abbott MD Work Phone: [facility] 03-14-2024 10:50-0500 Heart rate 61 /min Fidel Abbott MD Work Phone: [facility] 03-14-2024 10:50-0500 Respiratory rate 18 /min Fidel Abbott MD Work Phone: [facility] 03-14-2024 10:50-0500 Systolic blood pressure 128 mm[Hg] Fidel Abbott MD Work Phone: [facility] 02-08-2024 11:44-0500 Body height 180.34 cm Fidel Abbott MD Work Phone: [facility] 02-08-2024 11:44-0500 Body mass index (BMI) [Ratio] 31.4 kg/m2 Fidel Abbott MD Work Phone: [facility] 02-08-2024 11:44-0500 Body weight 102.05 kg Fidel Abbott MD Work Phone: [facility] 02-08-2024 10:51-0500 Body temperature 98.1 [degF] Fidel Abbott MD Work Phone: [facility] 02-08-2024 10:51-0500 Diastolic blood pressure 66 mm[Hg] Fidel Abbott MD Work Phone: [facility] 02-08-2024 10:51-0500 Heart rate 64 /min Fidel Abbott MD Work Phone: [facility] 02-08-2024 10:51-0500 Respiratory rate 18 /min Fidel Abbott MD Work Phone: [facility] 02-08-2024 10:51-0500 Systolic blood pressure 125 mm[Hg] Fidel Abbott MD Work Phone: [facility] 01-20-2024 11:52-0400 Body height 180.3 cm Fidel Abbott MD Work Phone: [facility] 01-20-2024 11:52-0400 Body temperature 97.5 [degF] Fidel Abbott MD Work Phone: [facility] 01-20-2024 11:52-0400 Diastolic blood pressure 58 mm[Hg] Fidel Abbott MD Work Phone: [facility] 01-20-2024 11:52-0400 Heart rate 57 /min Fidel Abbott MD Work Phone: [facility] 01-20-2024 11:52-0400 Respiratory rate 20 /min Fidel Abbott MD Work Phone: [facility] 01-20-2024 11:52-0400 SaO2% (BldA) [Mass fraction] 99 % Fidel Abbott MD Work Phone: [facility] 01-20-2024 11:52-0400 Systolic blood pressure 130 mm[Hg] Fidel Abbott MD Work Phone: [facility] 11-18-2023 13:47-0400 Body height 180.3 cm Fidel Abbott MD Work Phone: [facility] 11-18-2023 13:47-0400 Body temperature 97.5 [degF] Fidel Abbott MD Work Phone: [facility] 11-18-2023 13:47-0400 Diastolic blood pressure 70 mm[Hg] Fidel Abbott MD Work Phone: [facility] 11-18-2023 13:47-0400 Heart rate 60 /min Fidel Abbott MD Work Phone: [facility] 11-18-2023 13:47-0400 Respiratory rate 18 /min Fidel Abbott MD Work Phone: [facility] 11-18-2023 13:47-0400 SaO2% (BldA) [Mass fraction] 97 % Fidel Abbott MD Work Phone: [facility] 11-18-2023 13:47-0400 Systolic blood pressure 160 mm[Hg] Fidel Abbott MD Work Phone: [facility] 06-04-2023 13:27-0500 Diastolic blood pressure 58 mm[Hg] MD Fidel Abbott Work Phone: [facility] 06-04-2023 13:27-0500 Heart rate 60 /min MD Fidel Abbott Work Phone: [facility] 06-04-2023 13:27-0500 Respiratory rate 12 /min MD Fidel Abbott Work Phone: [facility] 06-04-2023 13:27-0500 SaO2% (BldA) [Mass fraction] 98 % MD Fidel Abbott Work Phone: [facility] 06-04-2023 13:27-0500 Systolic blood pressure 135 mm[Hg] MD Fidel Abbott Work Phone: [facility] 06-04-2023 10:49-0500 Body height 180.34 cm MD Fidel Abbott Work Phone: [facility] 06-04-2023 10:49-0500 Body temperature 98 [degF] MD Fidel Abbott Work Phone: [facility] 06-04-2023 10:49-0500 Body weight 114.3 kg MD Fidel Abbott Work Phone: [facility] 05-06-2023 10:40-0500 Body height 177.8 cm Jonathan Olvin DPM Work Phone: [facility] 05-06-2023 10:40-0500 Body mass index (BMI) [Ratio] 35.87 kg/m2 Jonathan Bah DPM Work Phone: [facility] 05-06-2023 10:40-0500 Body weight 113.4 kg Jonathan Bah DPM Work Phone: [facility] 05-06-2023 10:40-0500 Diastolic blood pressure 80 mm[Hg] Jonathan Bah DPM Work Phone: [facility] 05-06-2023 10:40-0500 Heart rate 79 /min Jonathan Olvin DPM Work Phone: [facility] 05-06-2023 10:40-0500 Systolic blood pressure 133 mm[Hg] Jonathan Olvin DPM Work Phone: [facility] 05-04-2023 13:06-0500 Body mass index (BMI) [Ratio] 34.8 kg/m2 MD Fidel Abbott Work Phone: [facility] 05-04-2023 12:48-0500 Body height 180.34 cm MD Fidel Abbott Work Phone: [facility] 05-04-2023 12:48-0500 Body weight 113.39 kg MD Fidel Abbott Work Phone: [facility] 05-04-2023 11:25-0500 Body temperature 97.3 [degF] MD Fidel Abbott Work Phone: [facility] 05-04-2023 11:25-0500 Diastolic blood pressure 78 mm[Hg] MD Fidel Abbott Work Phone: [facility] 05-04-2023 11:25-0500 Heart rate 64 /min MD Fidel Abbott Work Phone: [facility] 05-04-2023 11:25-0500 Respiratory rate 18 /min MD Fidel Abbott Work Phone: [facility] 05-04-2023 11:25-0500 Systolic blood pressure 177 mm[Hg] MD Fidel Abbott Work Phone: [facility] 11-09-2022 13:10-0400 Blood Pressure Location Jovanny VILLA [facility] 11-09-2022 13:10-0400 Diastolic blood pressure 72 mm[Hg] Jovanny VILLA [facility] 11-09-2022 13:10-0400 Heart rate 78 /min Jovanny VILLA [facility] 11-09-2022 13:10-0400 Systolic blood pressure 148 mm[Hg] Jovanny VILLA [facility] 06-26-2022 14:00-0400 Body temperature 97.81 [degF] Eli Pimentel MD Work Phone: [facility] [employer] 06-26-2022 14:00-0400 Diastolic blood pressure 62 mm[Hg] Eli Pimentel MD Work Phone: [facility] 06-26-2022 14:00-0400 Heart rate 70 /min Eli Pimentel MD Work Phone: [employer] [facility] 06-26-2022 14:00-0400 Respiratory rate 18 /min Eli Pimentel MD Work Phone: [facility] 06-26-2022 14:00-0400 SaO2% (BldA) [Mass fraction] 95 % Eli Pimentel MD Work Phone: [facility] 06-26-2022 14:00-0400 Systolic blood pressure 144 mm[Hg] Eli Pimentel MD Work Phone: [facility] 06-26-2022 05:30-0400 Body mass index (BMI) [Ratio] 34.28 kg/m2 Eli Pimentel MD Work Phone: [facility] 06-26-2022 05:30-0400 Body weight 111.49 kg Eli Pimentel MD Work Phone: [facility] 06-25-2022 04:54-0400 Body height 180.3 cm Eli Pimentel MD Work Phone: [facility] 06-02-2022 12:14-0500 Body height 172.72 cm MD Fidel Abbott Work Phone: [facility] 06-02-2022 12:14-0500 Body mass index (BMI) [Ratio] 41 kg/m2 MD Fidel Abbott Work Phone: [facility] 06-02-2022 12:14-0500 Body weight 122.46 kg MD Fidel Abbott Work Phone: [facility] 06-02-2022 09:52-0500 Body temperature 97 [degF] MD Fidel Abbott Work Phone: [facility] 06-02-2022 09:52-0500 Diastolic blood pressure 73 mm[Hg] MD Fidel Abbott Work Phone: [facility] 06-02-2022 09:52-0500 Heart rate 76 /min MD Fidel Abbott Work Phone: [facility] 06-02-2022 09:52-0500 Systolic blood pressure 155 mm[Hg] MD Fidel Abbott Work Phone: [facility] 03-03-2022 12:06-0500 Body height 180.34 cm MD Fidel Abbott Work Phone: [facility] 03-03-2022 12:06-0500 Body mass index (BMI) [Ratio] 34.8 kg/m2 MD Fidel Abbott Work Phone: [facility] 03-03-2022 12:06-0500 Body weight 113.39 kg MD Fidel Abbott Work Phone: [facility] 03-03-2022 11:37-0500 Body temperature 97.7 [degF] MD Fidel Abbott Work Phone: [facility] 03-03-2022 11:37-0500 Diastolic blood pressure 56 mm[Hg] MD Fidel Abbott Work Phone: [facility] 03-03-2022 11:37-0500 Heart rate 68 /min MD Fidel Abbott Work Phone: [facility] 03-03-2022 11:37-0500 Respiratory rate 18 /min MD Fidel Abbott Work Phone: [facility] 03-03-2022 11:37-0500 Systolic blood pressure 122 mm[Hg] MD Fidel Abbott Work Phone: [facility] Encounters Encounter Date Encounter Type Care Provider Facility Start: 07-31-2024 End: 07-31-2024 Bamboo flowsheet Fidel Abbott MD Work Phone: [facility] Start: 07-31-2024 End: 07-31-2024 Bamboo flowsheet Fidel Abbott MD Work Phone: [facility] Start: 07-31-2024 End: 07-31-2024 Office outpatient visit 25 minutes Fidel Abbott MD Work Phone: [facility] Comment on above: Type 2 diabetes ez itus with hyperglycemia, without long-term current use of insulin (CMS/HCC) (Primary Dx); Benign hypertension (CMS/HCC); Major depressive disorder, recurrent episode, mild (HCC) (CMS/HCC); Incontinence overflow, urine; Chronic superficial 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; Urticaria; Pruritus; Annual physical exam; Chronic kidney disease, stage 3a (HCC) (CMS/HCC); Class 2 severe obesity due to excess calories with serious comorbidity and body mass index (BMI) of 36.0 to 36.9 in adult ([facility]); Type 2 diabetes mellitus with other specified complication; Hyperlipidemia, unspecified ([facility]/HCC); Pressure ulcer of right heel, unstageable ([facility]); Type 2 diabetes mellitus with other skin ulcer (CODE); Paraplegia, unspecified; Diabetes mellitus due to underlying condition with diabetic polyneuropathy ([facility]) Start: 07-31-2024 End: 07-31-2024 Patient encounter procedure Fidel Abbott MD Work Phone: [facility] Start: 07-31-2024 End: 07-31-2024 ambulatory FIDEL ABBOTT Not Available Start: 07-04-2024 ambulatory Cathy Brar Facility: [facility] Start: 05-30-2024 End: 05-30-2024 Clinisync Result Encounter Generic External Data Provider [facility] External Department Unsolicited Start: 05-30-2024 End: 05-30-2024 Clinisync Result Encounter Generic External Data Provider [facility] External Department Unsolicited Start: 05-02-2024 ambulatory ANGIE Acuna ty:[facility] Start: 04-17-2024 End: 04-17-2024 Telephone encounter Scanning Provider External [facility] Start: 04-14-2024 End: 04-14-2024 Telephone encounter Mary Conner CMA [facility] Start: 04-06-2024 End: 04-06-2024 Telephone encounter Mary Conner CMA [facility] Start: 03-14-2024 End: 03-14-2024 ambulatory Fidel Abbott MD Work Phone: [facility] Work Phone: Start: 03-14-2024 End: 03-14-2024 Discharged Recurring Fidel Abbott MD Work Phone: [facility] Work Phone: Start: 03-13-2024 End: 03-13-2024 Refill Fidel Abbott MD Work Phone: [facility] Comment on above: Pruritus Start: 03-10-2024 Non-patient / Non-visit Fidel campbell MD [facility] Phone[facility] Work Phone: Start: 03-10-2024 End: 03-10-2024 Clinisync Result Encounter [...] Registered Recurring Fidel dubose MD Work Phone: [facility] [place] Work Phone: Start: 02-08-2024 End: 02-08-2024 Patient encounter procedure Fidel Abbott MD Work Phone: [facility] Work Phone: Start: 02-08-2024 End: 02-08-2024 ambulatory Fidel Abbott MD Work Phone: [facility] Work Phone: Start: 01-20-2024 End: 01-20-2024 [...] Orders Only Iraj Valdivia MD Work Phone: [facility] Comment on above: Stage 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 (CMS-HCC) (Primary Dx) Start: 01-12-2024 End: 01-12-2024 Telephone encounter Scanning Provider External [facility] Start: 12-02-2023 End: 12-02-2023 Clinisync Result Encounter Generic External Data Provider [facility] External Department Unsolicited Start: 12-02-2023 End: 12-02-2023 Clinisync Result Encounter Generic External Data Provider [facility] External Department Unsolicited Start: 11-18-2023 End: 11-18-2023 Office outpatient visit 25 minutes Fidel Abbott MD Work Phone: [facility] Comment on above: Type 2 diabetes ez itus with hyperglycemia, without long-term current use of insulin (CMS/HCC) (Primary Dx); Benign hypertension (CMS/HCC); Major depressive disorder, recurrent episode, mild (HCC) (CMS/HCC); Incontinence overflow, urine; Pruritus; Chronic kidney disease, stage 3a (HCC) (CMS/HCC); Encounter for long-term (current) use of medications; Cauda equina syndrome (CMS/HCC) Start: 11-18-2023 End: 11-18-2023 ambulatory FIDEL ABBOTT Not Available Start: 11-12-2023 End: 11-12-2023 ambulatory Jovanny VILLA Facility:[facility] Start: 11-12-2023 End: 11-12-2023 Patient encounter procedure Jovanny VILLA [facility] Start: 11-08-2023 End: 11-08-2023 ambulatory Jovanny VILLA Facility:[id number] Start: 10-11-2023 End: 10-11-2023 ambulatory Khadar [facility] Start: 10-04-2023 ambulatory Jovanny VILLA Facili ty:[id number] Start: 07-08-2023 End: 07-08-2023 ambulatory MD Fidel Abbott Work Phone: [facility] Work Phone: Start: 07-08-2023 End: 07-08-2023 Departed Referred MD Fidel Abbott Work Phone: [facility]-LAB [facility] Start: 06-04-2023 End: 06-04-2023 Admission to same day surgery center MD Fidel Abbott Work Phone: [facility]-Surgery Center [facility] Start: 05-13-2023 Telephone encounter Sandhya Grijalva [facility] Comment on above: Prescription Start: 05-06-2023 Chart abstracting Jonathan johnson DPM Work Phone: [facility] Start: 05-06-2023 End: 05-06-2023 Office outpatient visit 25 minutes Jonathan Bah DPM Work Phone: [facility] Comment on above: Cellulitis of left f oot (Primary Dx); Ulcer of left ankle, with necrosis of bone (HCC) (CMS/HCC); Diabetes mellitus due to underlying condition with diabetic polyneuropathy, unspecified whether terminal makeup operator insulin use (CMS/HCC); Acute complete paraplegia (CMS/HCC); Acute osteomyelitis of left fibula (CMS/HCC); Foot ulcer, right, with fat layer exposed (CMS/HCC); Venous insufficiency Start: 05-04-2023 End: 05-04-2023 ambulatory MD Fidel Abbott Work Phone: [facility] Work Phone: Start: 05-04-2023 End: 05-04-2023 Discharged Recurring MD Fidel Abbott Work Phone: [facility] [place] Work Phone: Start: 11-09-2022 End: 11-09-2022 Patient encounter procedure Jovanny Christie [facility] Start: 09-25-2022 End: 09-26-2022 ambulatory FIDEL ABBOTT [facility] Start: 09-18-2022 End: 09-21-2022 ambulatory ASHLEE ERWIN [facility] Start: 09-18-2022 End: 09-20-2022 Subsequent hospital visit by physician [facility] Ultrasound Room 2 At [facility] Ultrasound Comment on above: Cauda equina syndrom e (HCC); Neurogenic bladder; Urinary retention; Urinary incontinence without sensory awareness Start: 2022 End: 2022 ambulatory ANGELES NAGY [facility] Start: 07-02-2022 End: 07-03-2022 [facility] Start: 07-02-2022 End: 07-02-2022 Subsequent hospital visit by physician Fidel bAbott MD Work Phone: [facility] Laboratory Comment on above: Acute kidney injury (HCC); Iron deficiency anemia, unspecified iron deficiency anemia type Start: 06-22-2022 End: 06-26-2022 Evaluation and management of inpatient [facility] Start: 06-22-2022 End: 06-26-2022 Evaluation and management of inpatient Eli Pimentel MD Work Phone: [facility]G Comment on above: Acute kidney injury (HCC) (Primary Dx); Hyperkalemia; Iron deficiency anemia, unspecified iron deficiency anemia type Start: 06-22-2022 End: 06-22-2022 ambulatory ANGELES NAGY [facility] Start: 06-22-2022 End: 06-22-2022 Subsequent hospital visit by physician Fidel Abbott MD Work Phone: [facility] EKG Comment on above: Neurogenic bladder Start: 06-02-2022 End: 06-02-2022 ambulatory MD Fidel Abbott Work Phone: [facility] Work Phone: Start: 06-02-2022 End: 06-02-2022 Discharged Recurring MD Fidel Abbott Work Phone: [facility] [place] Work Phone: Start: 03-14-2022 End: 03-15-[address] CATHY BRAR Facility:[facility] Start: 03-03-2022 End: 03-03-2022 ambulatory MD Fidel Abbott Work Phone: [facility] Work Phone: Start: 03-03-2022 End: 03-03-2022 Discharged Recurring MD Fidel Abbott Work Phone: [facility] [place] Work Phone: Start: 02-26-2022 End: 02-27-[address] CATHY BRAR Facility:[facility] Start: 05-30-2021 End: 05-31-[address] FIDEL ABBOTT Facility:[facility] Start: 04-09-2017 End: 04-13-2017 Evaluation and management of inpatient [facility]HA[facility] Procedures Date Procedure Procedure Detail Performing Clinician Start: 05-30-2024 ALL CBC WITH AUTO DIFF Generic External Data Provider Start: 03-10-2024 ALL CBC WITH AUTO DIFF Generic External Data Provider Start: 02-14-2024 ALL SED RATE Generic External Data Provider Start: 12-02-2023 ALL CBC WITH AUTO DIFF Generic External Data Provider Start: 06-04-2023 Investigation of transfusion reaction MD Fidel Abbott Work Phone: Start: 06-04-2023 Debridement MD Fidel Abbott Work Phone: Start: 10-08-2022 Cystourethroscopy with dilation of urethral stricture Jovanny VILLA Start: 09-18-2022 Us retroperitoneal real time w/image complete Ashlee Erwin [employer] Work Phone: Start: 2022 Optical urethrotomy Jovanny VILLA Start: 07-02-2022 Basic metabolic panel calcium total Hoda jose Mondragon [employer] Work Phone: Start: 06-26-2022 End: 06-26-2022 COLONOSCOPY POLYPECTOMY SNARE/COLD BIOPSY Katerina Atkins MD Work Phone: Start: 06-26-2022 End: 06-26-2022 Esophagoscopy intra/transmural needle aspirat/bx Katerina Atkins MD Work Phone: Start: 06-26-2022 End: 06-26-2022 Colonoscopy Katerina Atkins MD Work Phone: Start: 06-26-2022 Esophagogastroduodenoscopy Katernia Cuadra i, MD Work Phone: Start: 06-26-2022 GLUCOSE, WHOLE BLOOD Matias Garcia MD Work Phone: Start: 06-26-2022 Blood count complete auto&auto difrntl wbc Katerina Atkins MD Work Phone: Start: 06-26-2022 Rhythm ecg 1-3 leads w/interpretation & report Unknown Provider Result Start: 06-25-2022 Blood occult peroxidase actv qual feces 1 deter Shelly PozoersIsaTripp [employer] Work Phone: Start: 06-25-2022 Cul bact xcpt [...] wright PA-C Work Phone: Start: 06-24-2022 End: 03-29-2023 Transfusion of packed red blood cells Shelly Mondragon [facility] Work Phone: Start: 06-24-2022 Echo tthrc r-t 2d w/wom-mode compl spec&colr d Shelly Mondragon [facility] Work Phone: Start: 06-24-2022 Blood typing serologic abo Shelly Mondragon [facility] Work Phone: Start: 06-24-2022 GLUCOSE, WHOLE BLOOD Matias Garcia MD Work Phone: Start: 06-24-2022 End: 06-24-2022 Prothrombin time Shelly Mondragon [facility] Work Phone: Start: 06-24-2022 VITAMIN B12 & FOLATE Shelly Mondragon [facility] Work Phone: Start: 06-24-2022 End: 06-25-2022 [...] ankle complete minimum 3 views Shelly Mondragon [facility] Work Phone: Start: 06-23-2022 Lipid panel [...] ONTIVEROS Start: 04-09-2017 INTAKE AND OUTPUT MICHAELA ONTIVREOS Start: 04-09-2017 IP CONSULT TO INFECTIOUS DISEASES [...] 06-26-2032 Screening for malignant neoplasm of colon [facility] Start: 02-01-2025 End: 02-01-2025 Patient encounter procedure 02/01/2025 10:30 AM EST Office Visit [facility] [address] [place] [id number] Fidel Abbott MD [address] [place] [address] [facility] Start: 11-27-2024 Influenza vaccination Influenza Vaccine (Season Ended) [facility] Start: 10-10-2024 Adult BMI Screening Adult BMI Screening [facility] Start: 10-10-2024 Tobacco Screening Tobacco Screening [facility] Start: 07-31-2024 End: 07-31-2025 Basic metabolic 1998 panel - Serum or Plasma Basic metabolic panel Lab Routine Annual physical exam Expected: 07/31/2024 (Approximate), Expires: 07/31/2025 [facility] Comment on above: Expected: 07/31/2024 (Approximate), Expi res: 07/31/2025 Start: 07-31-2024 End: 07-31-2025 CBC W Auto Differential panel - Blood CBC and differential Lab Routine Annual physical exam Expected: 07/31/2024 (Approximate), Expires: 07/31/2025 [facility] Comment on above: Expected: 07/31/2024 (Approximate), Expi res: 07/31/2025 Start: 07-31-2024 End: 07-31-2025 Hemoglobin A1c/Hemoglobin.total in Blood Hemoglobin A1c Lab Routine Annual physical exam Expected: 07/31/2024 (Approximate), Expires: 07/31/2025 [facility] Comment on above: Expected: 07/31/2024 (Approximate), Expi res: 07/31/2025 Start: 07-31-2024 End: 07-31-2025 Hepatic function 2000 panel - Serum or Plasma Hepatic function panel Lab Routine Annual physical exam Expected: 07/31/2024 (Approximate), Expires: 07/31/2025 [facility] Comment on above: Expected: 07/31/2024 (Approximate), Expi res: 07/31/2025 Start: 07-31-2024 End: 07-31-2025 Lipid 1996 panel - Serum or Plasma Lipid panel Lab Routine Annual physical exam Expected: 07/31/2024 (Approximate), Expires: 07/31/2025 [facility] Comment on above: Expected: 07/31/2024 (Approximate), Expi res: 07/31/2025 Start: 07-31-2024 End: 07-31-2025 Microalbumin/Creatinine panel in random Urine Microalbumin / creatinine, urine ratio Lab Routine Type 2 diabetes mellitus with hyperglycemia, without long-term current use of insulin ([facility]) Expected: 07/31/2024 (Approximate), Expires: 07/31/2025 [facility] Work Phone: Comment on above: Expected: 07/31/2024 (Approximate), Expi res: 07/31/2025 Start: 07-31-2024 End: 07-31-2025 Prostate specific Ag [Mass/volume] in Serum or Plasma PSA Lab Routine Annual physical exam Expected: 07/31/2024 (Approximate), Expires: 07/31/2025 [facility] Comment on above: Expected: 07/31/2024 (Approximate), Expi res: 07/31/2025 Start: 07-31-2024 End: 07-31-2025 Thyrotropin [Units/volume] in Serum or Plasma TSH Lab Routine Annual physical exam Expected: 07/31/2024 (Approximate), Expires: 07/31/2025 [facility] Comment on above: Expected: 07/31/2024 (Approximate), Expi res: 07/31/2025 Start: 07-31-2024 End: 07-31-2024 Patient encounter procedure 07/31/2024 10:45 AM EDT Office Visit [facility] [address] [place] [phone] Fidel Abbott MD [address] [place] [phone] Arrived [facility] Comment on above: Arrived Start: 05-22-2024 End: 05-22-2024 Patient encounter procedure 05/22/2024 1:15 PM EST Office Visit [facility] [address] [place] [address] Fidel Abbott MD [address] [place] [phone] [facility] Start: 04-20-2024 End: 04-20-2024 Patient encounter procedure 04/20/2024 1:30 PM EST Office Visit [facility] [place] [address] [place] [phone] Iraj Valdivia MD [facility] [place] [address] [facility] Start: 04-13-2024 End: 04-13-2024 Patient encounter procedure 04/13/2024 2:00 PM EST Office Visit [facility] [place] [address] [place] [phone] Iraj Valdivia MD [facility] [place], [place] [phone] [facility] Start: 01-20-2024 End: 01-20-2024 Patient encounter procedure 01/20/2024 11:45 AM EDT Office Visit [facility] [address] [place] [phone] Fidel Abbott MD [address] [place] [address] Arrived [facility] Comment on above: Arrived Start: 11-28-2023 Influenza vaccination [facility] Start: 11-18-2023 End: 11-17-2024 Albumin, urine, random Albumin, urine, random Lab Routine Type 2 diabetes mellitus with hyperglycemia, without long-term current use of insulin ([facility]) Expected: 11/18/2023 (Approximate), Expires: 11/17/2024 [facility] Work Phone: Comment on above: Expected: 11/18/2023 (Approximate), Expi res: 11/17/2024 Start: 11-18-2023 End: 11-17-2024 Basic metabolic 1998 panel - Serum or Plasma Basic metabolic panel Lab Routine Encounter for long-term (current) use of medications Expected: 11/18/2023 (Approximate), Expires: 11/17/2024 [facility] Comment on above: Expected: 11/18/2023 (Approximate), Expi res: 11/17/2024 Start: 11-18-2023 End: 11-17-2024 CBC W Auto Differential panel - Blood CBC and differential Lab Routine Encounter for long-term (current) use of medications Expected: 11/18/2023 (Approximate), Expires: 11/17/2024 [facility] Comment on above: Expected: 11/18/2023 (Approximate), Expi res: 11/17/2024 Start: 11-18-2023 End: 11-17-2024 Hemoglobin A1c/Hemoglobin.total in Blood Hemoglobin A1c Lab Routine Type 2 diabetes mellitus with hyperglycemia, without long-term current use of insulin (CMS/HCC) Expected: 11/18/2023 (Approximate), Expires: 11/17/2024 [facility] Comment on above: Expected: 11/18/2023 (Approximate), Expi res: 11/17/2024 Start: 11-18-2023 End: 11-17-2024 Hepatic function 2000 panel - Serum or Plasma Hepatic function panel Lab Routine Encounter for long-term (current) use of medications Expected: 11/18/2023 (Approximate), Expires: 11/17/2024 [facility] Comment on above: Expected: 11/18/2023 (Approximate), Expi res: 11/17/2024 Start: 11-18-2023 End: 11-17-2024 Lipid 1996 panel - Serum or Plasma Lipid panel Lab Routine Type 2 diabetes mellitus with hyperglycemia, without long-term current use of insulin (CMS/HCC) Expected: 11/18/2023 (Approximate), Expires: 11/17/2024 [facility] Comment on above: Expected: 11/18/2023 (Approximate), Expi res: 11/17/2024 Start: 10-18-2023 End: 10-18-2023 Patient encounter procedure 10/18/2023 10:00 AM EDT Office Visit [facility] [address] [place] [address] Fidel Abbott MD [address] [place] [address] [facility] Start: 09-19-2023 GFR test (Diabetes, CKD 3-4, OR last GFR 15-59) GFR test (Diabetes, CKD 3-4, OR last GFR 15-59) [facility] Start: 09-19-2023 Urine screening for protein Diabetes: Urine Protein Screening [facility] Start: 07-08-2023 Hemoglobin A1c measurement A1C test (Diabetic or Prediabetic) [facility] Start: 07-03-2023 GFR test (Diabetes, CKD 3-4, OR last GFR 15-59) GFR test (Diabetes, CKD 3-4, OR last GFR 15-59) [facility] Start: 06-27-2023 Screening for malignant neoplasm of colon [facility] Start: 06-26-2023 GFR test (Diabetes, CKD 3-4, OR last GFR 15-59) GFR test (Diabetes, CKD 3-4, OR last GFR 15-59) [facility] Start: 06-26-2023 Screening for malignant neoplasm of colon [facility] Start: 06-24-2023 Lipid panel Lipids [facility] Start: 06-23-2023 GFR test (Diabetes, CKD 3-4, OR last GFR 15-59) GFR test (Diabetes, CKD 3-4, OR last GFR 15-59) [facility] Start: 06-04-2023 [facility] Start: 05-20-2023 End: 05-20-2023 Patient encounter procedure 05/20/2023 3:10 PM EST Office Visit [facility] [address] [facility] [address] [place] [phone] Jonathan Bah DPM [phone] [facility] [address] [place] [address] [facility] Start: 05-06-2023 End: 05-06-2023 Patient encounter procedure 05/06/2023 10:20 AM EST Office Visit [facility] [address] [facility] [address] [place] [address] Jonathan Bah DPM [phone] [facility] [address] [place] [address] [facility] Start: 10-27-2022 Influenza vaccination Flu vaccine (Season Ended) [facility] Start: 10-06-2022 Hemoglobin A1c measurement Diabetes: [facility]C [facility] Start: 09-25-2022 End: 09-25-2022 Patient encounter procedure 09/25/2022 Office Visit [facility] Start: 07-08-2022 End: 07-08-2022 Patient encounter procedure 07/08/2022 Office Visit [facility] Start: 2022 End: 2022 Admission to same day surgery center 2022 Surgery IP Unit Angeles Nagy MD [address] [facility], [address] [place] [phone] CYSTOSCOPY TRANSURETHROTOMY- DVIU WITH POSS TRANSURETHRAL RESECTION OF BLADDER TUMOR [facility] Comment on above: CYSTOSCOPY TRANSURETHROTOMY- DVIU WITH P OSS TRANSURETHRAL RESECTION OF BLADDER TUMOR Start: 2022 End: 2022 Cystourethroscopy w/internal urethrotomy male CYSTOSCOPY TRANSURETHROTOMY Cauda equina syndrome (HCC) 2022 8:30 AM EDT [facility] Start: 2022 Subsequent hospital visit by physician 2022 Hospital Encounter IP Unit Angeles Nagy MD [address] [facility], [address] [place] [address] [facility] Start: 07-01-2022 End: 06-27-2023 Basic metabolic 2000 panel - Serum or Plasma Basic Metabolic Panel Lab Routine Acute kidney injury (HCC) Expected: 07/01/2022, Expires: 06/27/2023 [facility] Work Phone: Comment on above: Expected: 07/01/2022, Expires: 4 Start: 07-01-2022 End: 06-27-2023 CBC W Auto Differential panel - Blood CBC with Auto Differential Lab Routine Acute kidney injury (HCC) Iron deficiency anemia, unspecified iron deficiency anemia type Expected: 07/01/2022, Expires: 06/27/2023 [facility] Work Phone: Comment on above: Expected: 07/01/2022, Expires: 4 Start: 06-22-2022 Annual Wellness Visit (AWV) Annual Wellness Visit (AWV) [facility] [employer] Start: 10-27-2021 Influenza vaccination Flu vaccine (#1) [facility] Start: 04-09-2018 Diabetic foot examination Diabetic foot exam [facility] [employer] Start: 04-09-2018 Hemoglobin A1c measurement A1C test (Diabetic or Prediabetic) [facility] [employer] Start: 04-25-2016 Lipid panel Lipids [facility] [employer] Start: 04-24-2016 Urine screening for protein [facility] [employer] Start: 07-08-2011 Administration of varicella zoster vaccine Zoster (Shingles) Vaccine (1 of 2) [facility] Start: 07-08-2011 Shingles vaccine (1 of 2) Shingles vaccine (1 of 2) [facility] Start: 2006 Screening for malignant neoplasm of colon [facility] [employer] Start: 1980 DTaP,Tdap and Td Vaccines (1 - Tdap) DTaP,Tdap and Td Vaccines (1 - Tdap) [facility] Start: 1980 DTaP/Tdap/Td vaccine (1 - Tdap) DTaP/Tdap/Td vaccine (1 - Tdap) [facility] Start: 1980 Urine screening for protein Diabetes: Urine Protein Screening [facility] Start: 07-08-1979 Adult BMI Follow Up Plan Adult BMI Follow Up Plan [facility] Start: 07-08-1979 Glaucoma screening Diabetic retinal exam [facility] Start: 07-08-1979 Hepatitis C screening Hepatitis C screen [facility] Start: 1976 HIV screening HIV screen [facility] Start: 1973 Depression Monitoring Depression Monitoring [facility] Start: 1973 Depression Screening Depression Screening [facility] [employer] Start: 07-08-1971 Glaucoma screening Diabetes: Retinopathy Screening [facility] Start: 07-08-1967 Pneumococcal 0-64 years Vaccine (1 - PCV) Pneumococcal 0-64 years Vaccine (1 - PCV) [facility] Start: 01-06-1962 COVID-19 Vaccine (#1) COVID-19 Vaccine (#1) [facility] Start: 1961 Screening for malignant neoplasm of colon [facility] End: 01-16-2025 Basic metabolic 2000 panel - Serum or Plasma Basic Metabolic Panel Lab Routine Stage 3a chronic kidney disease ([facility]) 1 Occurrences starting 01/17/2024 until 01/16/2025 [facility] Work Phone: Comment on above: 1 Occurrences starting 01/17/2024 until 01/16/2025 End: 01-16-2025 CBC panel - Blood by Automated count CBC without diff Lab Routine Stage 3a chronic kidney disease [facility] 1 Occurrences starting 01/17/2024 until 01/16/2025 [facility] Comment on above: 1 Occurrences starting 01/17/2024 until 01/16/2025 End: 06-27-2022 CBC W Auto Differential panel - Blood CBC auto differential Lab Routine Daily for 5 Days starting 06/23/2022 until 06/27/2022, 4 completed [facility] Work Phone: Comment on above: Daily for 5 Days starting 06/23/2022 unt il 06/27/2022, 4 completed Culture, Wound Aerob ic Only Culture, Wound Aerobic Only Microbiology [employer] Label Print 06/25/2022 12:20 PM EDT [employer] Phone: End: 06-25-2022 Hemoglobin and Hematocrit Hemoglobin and Hematocrit Lab Routine Post Transfusion Post Transfusion Post Transfustion until discontinued starting 06/24/2022, 1 completed [employer] Phone: Comment on above: Post Transfusion Post Transfusion Post T ransfustion until discontinued starting 06/24/2022, 1 completed End: 01-16-2025 Magnesium [Mass/volume] in Serum or Plasma Magnesium Lab Routine Stage 3a chronic kidney disease ([facility]) 1 Occurrences starting 01/17/2024 until 01/16/2025 [employer] Comment on above: 1 Occurrences starting 01/17/2024 until 01/16/2025 Oxygen therapy [[facility] Data Set] Initiate Oxygen Therapy Protocol Respiratory Care Routine Daily until discontinued starting 06/22/2022 [employer] Phone: Comment on above: Daily until discontinued starting 2022 End: 01-16-2025 Parathyroid Hormone, intact Parathyroid Hormone, intact Lab Routine Stage 3a chronic kidney disease ([facility]) 1 Occurrences starting 01/17/2024 until 01/16/2025 [employer] Comment on above: 1 Occurrences starting 01/17/2024 until 01/16/2025 End: 01-16-2025 Phosphate [Mass/volume] in Serum or Plasma Phosphorus Lab Routine Stage 3a chronic kidney disease ([facility]) 1 Occurrences starting 01/17/2024 until 01/16/2025 [employer] Comment on above: 1 Occurrences starting 01/17/2024 until 01/16/2025 End: 06-24-2022 PREPARE RBC (CROSSMATCH), 1 Units PREPARE RBC (CROSSMATCH), 1 Units Blood Bank Routine Once for 1 Occurrences starting 06/24/2022 until 06/24/2022 [employer] Phone: Comment on above: Once for 1 Occurrences starting 06/25/19 until 06/24/2022 End: 01-16-2025 Protein creat ratio Protein creat ratio Lab Routine Stage 3a chronic kidney disease ([facility]) 1 Occurrences starting 01/17/2024 until 01/16/2025 [employer] Comment on above: 1 Occurrences starting 01/17/2024 until 01/16/2025 End: 06-25-2022 Surgical Pathology Surgical Pathology Lab Routine One Time for 1 Occurrences starting 06/25/2022 until 06/25/2022 [employer] Phone: Comment on above: One Time for 1 Occurrences starting 05/29 until 06/25/2022 Surgical Pathology Surgical Path ology Lab Routine Hyperkalemia Release Upon Ordering for 1 Occurrences starting 06/26/2022 [employer] Phone: Comment on above: Release Upon Ordering for 1 Occurrences starting 06/26/2022 End: 06-25-2022 SURGICAL PATHOLOGY REPORT SURGICAL PATHOLOGY REPORT Lab Routine Once for 1 Occurrences starting 06/25/2022 until 06/25/2022 [employer] Phone: Comment on above: Once for 1 Occurrences starting 06/26/19 until 06/25/2022 End: 06-26-2022 SURGICAL PATHOLOGY REPORT SURGICAL PATHOLOGY REPORT Lab Routine Once for 1 Occurrences starting 06/26/2022 until 06/26/2022 [employer] Phone: Comment on above: Once for 1 Occurrences starting 06/27/19 until 06/26/2022 End: 01-16-2025 Urinalysis Urinalysis Lab Routine Stage 3a chronic kidney disease [facility] 1 Occurrences starting 01/17/2024 until 01/16/2025 [employer] Comment on above: 1 Occurrences starting 01/17/2024 until 01/16/2025 End: 01-16-2025 Vitamin D 25 hydroxy Vitamin D 25 hydroxy Lab Routine Stage 3a chronic kidney disease ([facility]) 1 Occurrences starting 01/17/2024 until 01/16/2025 [employer] Comment on above: 1 Occurrences starting 01/17/2024 until 01/16/2025 Immunizations Immunization Date Immunization Notes Care Provider [facility] 02-11-2023 influenza, injectabl e, quadrivalent, preservative free MD Fidel Abbott Work Phone: [facility] 02-11-2023 influenza virus vaccine, unspecified formulation Fidel Abbott MD Work Phone: [facility] 04-10-2017 influenza virus vaccine, unspecified formulation Jovanny VILLA [facility] Comment on above: Result Comment: 2022: VIS DATE: 11/02/2014 04-10-2017 influenza, injectabl e, quadrivalent, preservative free Fidel Abbott MD Work Phone: [facility] 01-28-2016 Influenza Vaccine, unspecified formulation Fidel Abbott MD Work Phone: [facility] 01-01-2015 influenza virus vaccine, unspecified formulation Jovanny VILLA [facility] 01-01-2015 influenza, seasonal, injectable MD Fidel Abbott Work Phone: [facility] 01-10-2014 influenza virus vaccine, unspecified formulation Jovanny VILLA [facility] Payers Date Payer Category Payer Self-pay [id number] 2022 [employer] [place] [facility] ld Managed Care - PPO ANTHEM [id number] 2021 Blue [place] Blue [facility] [id number] 2021 Unknown BCBS BCBS [id number] 2021-Present [phone] [id number] [place] [address] [id number]. [id number] 2015 Unknown [id number] 2006 Medicare [id number]. [id number] 1961 Unknown [id number] 2.16.840.1.644299.3.579.2. 593 1961 Unknown [id number] 2.16.840.1.335984.3.579.2. 593 1961 Unknown [id number] 2.16.840.1.359823.3.579.2. 593 1961 Unknown [id number] 2.16.840.1.098196.3.579.2. 173 1961 Unknown [id number] 2.16.840.1.497209.3.579.2. 173 1961 Unknown [id number] 2.16.840.1.697200.3.579.2. 173 1961 Unknown [id number] 2.16.840.1.385562.3.579.2. 173 1961 Unknown [id number] 2.16.840.1.552065.3.579.2. 173 1961 Unknown [id number] 2.16.840.1.336293.3.579.2. 173 1961 Unknown [id number] 2.16.840.1.139262.3.579.2. 173 1961 Unknown [id number] 2.16.840.1.637611.3.579.2. 173 1961 Unknown [id number] 2.16.840.1.169657.3.579.2. 1286 1961 Unknown [id number] 2.16.840.1.500166.3.579.2. 1286 1961 Unknown [id number] 2.16.840.1.483570.3.579.2. 727 1961 Unknown [id number] 2.16.840.1.708359.3.579.2. 727 1961 Unknown [id number] 2.16.840.1.820259.3.579.2. 727 1961 Unknown [id number] 2.16.840.1.628970.3.579.2. 1259 1961 Unknown [id number] 2.16.840.1.878189.3.579.2. 1259 1961 Unknown [id number] 2.16.840.1.395390.3.579.2. 1259 1959 Medicare [id number] 1959 Unknown [id number] 1959 Unknown [id number] Unknown [id number] 2.16.840.1.592913.3.579.2. 531 Unknown [id number] 2.16.840.1.033117.3.579.2. 531 Unknown [id number] 2.16.840.1.175658.3.579.2. 531 Social History Date Type Detail Facility Start: 01-27-2022 End: 02-23-2023 Tobacco smoking status NHIS Never smoked tobacco (finding) [facility] Start: 1960 Sex Assigned At Male F [facility] Start: 06-22-2022 End: 02-23-2023 Tobacco use and exposure Smokeless tobacco non-user [employer] Phone: Start: 06-22-2022 End: 07-14-2022 Alcohol intake Current non-drinker of alcohol (finding) [employer] Phone: Start: 1960 Sex Assigned At Not on file [facility] [employer] Phone: Start: 06-12-2022 End: 06-22-2022 Exposure to SARS-CoV-2 (event) Not sure [facility] Start: 06-23-2022 History SDOH Alcohol Frequency 1 [employer] Phone: Start: 06-23-2022 History SDOH Alcohol Std Drinks 0 [employer] Phone: Tobacco smoking status Never [facility] Start: 04-29-2023 End: 10-17-2023 Sex Assigned At Male [facility] Start: 04-29-2023 End: 07-31-2024 Alcohol intake Lifetime non-drinker (finding) [facility] Start: 04-29-2023 End: 10-17-2023 History of Social function [facility] Start: 11-01-2014 End: 05-16-2024 Sex Male (finding) [facility] Do you belong to any clubs or organizations such as islam groups, unions, fraternal or athletic groups, or [...] 06-04-2023 Wound debridement Collagen wound matrix dressing ()[id number] FDA Start: 06-04-2023 Wound debridement Collagen wound matrix dressing ()[id number] FDA Start: 06-04-2023 Wound debridement EPIFIX MESH SH EET 4X4.5CM FDA Start: 06-04-2023 Wound debridement EPIFIX MESH SH EET 4X4.5CM FDA Start: 06-04-2023 Wound debridement EPIFIX MESH SH EET 4X4.5CM FDA Start: 06-04-2023 Amputation, toe Collagen wound matrix dressing ()[id number] FDA Start: 02-10-2023 Graft Subst Resorbable Mini 5cc [id number] Start: 12-25-2016 Comment on above: Description: tobramy icin recostituted with 10ml normal saline ref # [id number] exp 07/27/2018 lot # [id number] Goals Date Patient Goal Desired Activity /State Functional Status Date Assessment Result Facility 11-09-2022 Functional Status N/A [facility] Clinical Notes 07-29-2021 to 07-31-2024 Fidel Abbott MD - 07/31/2024 11:20 AM Deidre Abbott MD - 07/31/2024 11:18 AM Deidre Abbott MD - 07/31/2024 11:18 AM Deidre Abbott MD - 07/31/2024 11:18 AM EDT Note Date & Type Note Facility 07-31-2024 History of Presen t illness Narrative Associated Problem(s): Class 2 severe obesity due to excess calories with serious comorbidity and body mass index (BMI) of 36.0 to 36.9 in adult (CMS/[facility]) Weight loss indicated. Associated Problem(s): Type 2 diabetes mellitus with hyperglycemia, without long-term current use of insulin (CMS/HCC) Reports BS stable and due for A1C. Stick to ADA diet and limit carbs. Associated Problem(s): Major depressive disorder, recurrent episode, mild (HCC) (CMS/HCC) Mood controlled with celexa and continue. Associated Problem(s): Incontinence overflow, urine Symptoms tolerable with medication and continue. Associated Problem(s): Chronic superficial gastritis Symptoms controlled with medication and continue. Associated Problem(s): Benign hypertension (CMS/HCC) BP controlled and monitor PRN. Images from the original note were not included. Subjective Patient ID: Ganga Stinson is a 64 y.o. male who presents for Follow-up (Check up). Follow up DM, HTN, depression, incontinence, and GERD. Patient stable today. Following with wound care for leg ulcers and gradually healing. Reports BS controlled around 110-115 and due for A1C. Tries to eat well and stick to ADA diet. Denies signs of elevated BS such as polyuria, polyphagia or polydipsia. Checking BP PRN and typically controlled. BP okay today. Taking medication daily and tolerating without side effects. Depression controlled with celexa. Not down or sad and feels happier. Urine symptoms controlled with medication. Not going as often or having leakage. Able to hold urine better. GERD controlled with omeprazole. Denies epigastric pain or burning and not waking up with symptoms. Review of Systems Constitutional: Negative for fatigue. [...] Assessment/Plan Problem List Items Addressed This Visit Benign hypertension (CMS/HCC) BP controlled and monitor PRN. Chronic superficial gastritis Symptoms controlled with medication and continue. Major depressive disorder, recurrent episode, mild (HCC) (CMS/HCC) Mood controlled with celexa and continue. Incontinence overflow, urine Symptoms tolerable with medication and continue. Type 2 diabetes mellitus with hyperglycemia, without long-term current use of insulin (CMS/HCC) - Primary Reports BS stable and due for A1C. Stick to ADA diet and limit carbs. Relevant Orders Microalbumin / creatinine, urine ratio Chronic kidney disease, stage 3a (HCC) (CMS/HCC) Urticaria Other Visit Diagnoses Pruritus Relevant Medications hydrOXYzine HCl (Atarax) 50 MG tablet Annual physical exam Relevant Orders Hemoglobin A1c Basic metabolic panel CBC and differential Hepatic function panel Lipid panel PSA TSH documented in this encounter [facility] 04-17-2024 Miscellaneous Notes Formattin g of this note might be different from the original. Pt called to reschedule new pt appt due to lack of transportation. I informed him that we have no availability in [place] until [facility]'s July schedule opens up. He stated he will call back the first week of April to reschedule. documented in this encounter [facility] 04-17-2024 Telephone encount er Note Pt called to reschedule new pt appt due to lack of transportation. I informed him that we have no availability in [place] until [facility]'s July schedule opens up. He stated he will call back the first week of April to reschedule. [facility] 04-14-2024 Miscellaneous Notes Formattin g of this note might be different from the original. Left message for patient to call the office back to confirm upcoming appointment 04/20 at 1:[address] Valdivia in [place]. Also stated that patient needs to get labs done prior to upcoming appointment documented in this encounter [facility] 04-14-2024 Telephone encount er Note Left message for patient to call the office back to confirm upcoming appointment 04/20 at 1:[address] Valdivia in [place]. Also stated that patient needs to get labs done prior to upcoming appointment [facility] 04-06-2024 Miscellaneous Notes Formattin g of this note might be different from the original. Left message for patient to call the office back to confirm upcoming appointment 04/13 at 2:[address] Valdivia in [place]. Also stated that patient needs to get labs done prior to upcoming appointment documented in this encounter [facility] Left message for patient to call the office back to confirm upcoming appointment 04/13 at 2:[address] Valdivia in [place]. Also stated that patient needs to get labs done prior to upcoming appointment [facility] [employer] 03-14-2024 Progress note Note Date/Time March 14, 2024 11:23am [facility] [address] [place] [address] Wound Center Provider Note Signed Patient: Ganga Stinson MR#: [id number] : 1960 Acct:[id number] Age/Sex: 63 / M Copies to: MD Fidel Whitmore MD~ HPI Date of Visit Date of Visit: Date of Service: 03/14/2024 Time of Service: 11:21 Narrative HPI: Patient being followed for sacral, left, right ischial ulcers. Patient's is doing dressing changes. Drainage and maceration have improved. Right ischial ulcer is larger but less deep. Patient's sacral ulcer is open granulation tissue. Left ischial ulcer is a very small opening with some epithelization down into the depths of the wound. At the base, there is bone palpable with the sterile swab. There is some tenderness at this area with palpation. Patient states his foot ulcers are healing. These are being followed by podiatry. Patient states sugars have been under control. Last hemoglobin A1c was around 6. He is eating. Denies other new medical problems. He states his cushioning devices are in good shape. Primary care physician is Dr. Abbott. Subjective Pain Buttock: Pain Intensity: 5 Wound/Ulcer History When did wound start?: 10 plus years Mode of Arrival/ Mattress Stuffer: Personal vehicle and Family Assistive Device Used Today: Wheelchair Lives with:: Spouse Appetite Description: Within Normal Limits Smoking Status: Never smoker Constitutional Constitutional: Denies [...] Temp Pulse Resp BP O2 Del Method 98.2 F 61 18 128/67 Room Air 03/14/24 10:50 03/14/24 10:50 03/14/24 10:50 03/14/24 10:50 03/14/24 10:50 Const General: cooperative and no acute distress Skin Wounds: wounds noted Neuro General: patient alert and patient awake Lower/Upper Extremity Exam Vascular Exam-Pulses Left Brachial: Pulse Assessment Method: NIBP Objective Meds/Allergies Home Medications citalopram 40 mg tablet (Celexa) 40 mg PO DAILY Depression 12/07/16 [History Confirmed 10/05/23] lisinopril 10 mg tablet 20 mg PO QAM HTN 12/07/16 [History Confirmed 10/05/23] amlodipine 10 mg tablet 10 mg PO QAM HTN 12/08/16 [History Confirmed 10/05/23] atenolol 100 mg tablet 100 mg PO DAILY HTN 11/03/17 [History Confirmed 10/05/23] glipizide 10 mg tablet 10 mg PO BID 06/30/18 [History Confirmed 10/05/23] sitagliptin phosphate 100 mg tablet (Januvia) 100 mg PO DAILY 07/29/21 [History Confirmed 10/05/23] oxybutynin chloride 15 mg tablet,extended release 24 hr 15 mg PO DAILY 02/07/23 [History Confirmed 10/05/23] fenofibrate nanocrystallized 145 mg tablet 145 mg PO QHS #0 tabs 02/13/23 [Rx Confirmed 10/05/23] oxybutynin chloride 5 mg tablet,extended release 24 hr 15 mg (3 x 5 mg) PO DAILY30 days #90 tabs 02/13/23 [Rx Confirmed 10/05/23] atorvastatin 40 mg tablet 40 mg PO DAILY 05/04/23 [History Confirmed 07/09/24] Allergies vancomycin Adverse Reaction (Severe, Verified 02/08/23 12:50) Shut kidneys down ferrous sulfate Adverse Reaction (Verified 02/07/23 15:14) Itching Wound/Ulcer Sacrum: Bed Appearance: Beefy Red, Paola, Rolled Edges and Yellow Percent of Wound Bed Granulated/Red: 90 Percent of Devitalized: 10 Length (cm): 2.2 Width (cm): 2.5 Depth (cm): 3 CM Sq: 5.500 Undermining Position: 360 Undermining Depth: 4.0 Surrounding Tissue Appearance: Macerated and Rash/Irritation Surrounding Tissue Temp: Warm Drainage Amount: Moderate Drainage Description: Serosanguineous and Yellow Drainage Odor: No Odor Lidocaine Applied Topically: 2% Jelly Right Ischium: Bed Appearance: Beefy Red, Bone Palpable, Paola and Yellow Percent of Wound Bed Granulated/Red: 90 Percent of Devitalized: 10 Length (cm): 9.0 Width (cm): 7.8 Depth (cm): 2.0 CM Sq: 70.200 Undermining Position: 7-10 Undermining Depth: 3.0 Tunneling Position: 00:00 Tunneling Depth: 0 Surrounding Tissue Appearance: Rolled Edges and Rash/Irritation Surrounding Tissue Temp: Warm Drainage Amount: Large Drainage Description: Serosanguineous Drainage Odor: No Odor Left Ischium: Bed Appearance: Beefy Red, Bone Palpable, Paola, Rolled Edges and Yellow Percent of Wound Bed Granulated/Red: 90 Percent of Devitalized: 10 Length (cm): 0.5 Width (cm): 0.5 Depth (cm): 2.5 CM Sq: 0.250 Tunneling Position: 10:00 Tunneling Depth: 4 Surrounding Tissue Appearance: Paola and Macerated Surrounding Tissue Temp: Warm Drainage Amount: Large Drainage Description: Serosanguineous Drainage Odor: No Odor Results Height: 5 ft 11 in Weight: 102.058 kg Body Mass Index: 31.4 Assessment/Plan Assessment/Plan (1) Stage IV pressure ulcer of sacral region: Code(s): L89.154 - Pressure ulcer of sacral region, stage 4 (2) Pressure injury of right ischium, stage 4: Code(s): L89.314 - Pressure ulcer of right buttock, stage 4 (3) Pressure injury of left ischium, stage 4: Code(s): L89.324 - Pressure ulcer of left buttock, stage 4 (4) Cauda equina spinal cord injury: Qualifiers: Encounter type: subsequent encounter Qualified Code(s): S34.3XXD - Injury of cauda equina, subsequent encounter Code(s): S34.3XXA - Injury of cauda equina, initial encounter (5) Diabetes mellitus due to underlying condition with diabetic neuropathy, withlong-term current use of insulin: Code(s): E08.40 - Diabetes mellitus due to underlying condition with diabetic neuropathy,unspecified; Z79.4 - retirement (current) use of insulin Plan Continue with current dressing changes and pressure relief. Will have to closely monitor the left ischial ulcer. If pain worsens or there is evidence ofexposed bone, we may consider imaging to check for osteomyelitis. Podiatry following the patient's foot ulcers. Follow-up in 1 month See Instructions for Orders See Instructions for Orders See Wound Discharge Instructions for Orders: Dictated By: Cathy Brar MD DD/ 112 Signed By: <Electronically signed by MD Cathy Brar> 03/14/24 1123 [facility] Work Phone: 1(481) 803-805212-17-2024 Evaluation note* Diagnosis Onset Date Resolution Status Admit Date Diabetes mellitus due to underlying condition with diabetic neuropathy, wit acute Decembe r 2023 10:42am Pressure injury of left ischium, stage 4 acute March 14, 2024 10:42am Pressure injury of right ischium, stage 4 acute March 14, 2024 10:42am Stage IV pressure ulcer of sacral region acute March 14, 2 024 10:42am Cauda equina spinal cord injury chronic March 14 2 024 10:42am [facility] Work Phone: 1(829) 494-410912-17-2024 [place] [address] Wound Center Provider Note Signed Patient: Ganga Stinson MR#: [id number] : 1960 Acct:[id number] Age/Sex: 63 / M Copies to: MD Fidel Whitmore MD~ HPI Date of Visit Date of Visit: Date of Service: 03/14/2024 Time of Service: 11:21 Narrative HPI: Patient being followed for sacral, left, right ischial ulcers. Patient's is doing dressing changes. Drainage and maceration have improved. Right ischial ulcer is larger but less deep. Patient's sacral ulcer is open granulation tissue. Left ischial ulcer is a very small opening with some epithelization down into the depths of the wound. At the base, there is bone palpable with the sterile swab. There is some tenderness at this area with palpation. Patient states his foot ulcers are healing. These are being followed by podiatry. Patient states sugars have been under control. Last hemoglobin A1c was around 6. He is eating. Denies other new medical problems. He states his cushioning devices are in good shape. Primary care physician is Dr. Abbott. Subjective Pain Buttock: Pain Intensity: 5 Wound/Ulcer History When did wound start?: 10 plus years Mode of Arrival/ Mattress Stuffer: Personal vehicle and Family Assistive Device Used Today: Wheelchair Lives with:: Spouse Appetite Description: Within Normal Limits Smoking Status: Never smoker Constitutional Constitutional: Denies [...] Temp Pulse Resp BP O2 Del Method 98.2 F 61 18 128/67 Room Air 03/14/24 10:50 03/14/24 10:50 03/14/24 10:50 03/14/24 10:50 03/14/24 10:50 Const General: cooperative and no acute distress Skin Wounds: wounds noted Neuro General: patient alert and patient awake Lower/Upper Extremity Exam Vascular Exam-Pulses Left Brachial: Pulse Assessment Method: NIBP Objective Meds/Allergies Home Medications citalopram 40 mg tablet (Celexa) 40 mg PO DAILY Depression 12/07/16 [History Confirmed 10/05/23] lisinopril 10 mg tablet 20 mg PO QAM HTN 12/07/16 [History Confirmed 10/05/23] amlodipine 10 mg tablet 10 mg PO QAM HTN 12/08/16 [History Confirmed 10/05/23] atenolol 100 mg tablet 100 mg PO DAILY HTN 11/03/17 [History Confirmed 10/05/23] glipizide 10 mg tablet 10 mg PO BID 06/30/18 [History Confirmed 10/05/23] sitagliptin phosphate 100 mg tablet (Januvia) 100 mg PO DAILY 07/29/21 [History Confirmed 10/05/23] oxybutynin chloride 15 mg tablet,extended release 24 hr 15 mg PO DAILY 02/07/23 [History Confirmed 10/05/23] fenofibrate nanocrystallized 145 mg tablet 145 mg PO QHS #0 tabs 02/13/23 [Rx Confirmed 10/05/23] oxybutynin chloride 5 mg tablet,extended release 24 hr 15 mg (3 x 5 mg) PO DAILY30 days #90 tabs 02/13/23 [Rx Confirmed 10/05/23] atorvastatin 40 mg tablet 40 mg PO DAILY 05/04/23 [History Confirmed 10/05/23] Allergies vancomycin Adverse Reaction (Severe, Verified 02/08/23 12:50) Shut kidneys down ferrous sulfate Adverse Reaction (Verified 02/07/23 15:14) Itching Wound/Ulcer Sacrum: Bed Appearance: Beefy Red, Paola, Rolled Edges and Yellow Percent of Wound Bed Granulated/Red: 90 Percent of Devitalized: 10 Length (cm): 2.2 Width (cm): 2.5 Depth (cm): 3 CM Sq: 5.500 Undermining Position: 360 Undermining Depth: 4.0 Surrounding Tissue Appearance: Macerated and Rash/Irritation Surrounding Tissue Temp: Warm Drainage Amount: Moderate Drainage Description: Serosanguineous and Yellow Drainage Odor: No Odor Lidocaine Applied Topically: 2% Jelly Right Ischium: Bed Appearance: Beefy Red, Bone Palpable, Paola and Yellow Percent of Wound Bed Granulated/Red: 90 Percent of Devitalized: 10 Length (cm): 9.0 Width (cm): 7.8 Depth (cm): 2.0 CM Sq: 70.200 Undermining Position: 7-10 Undermining Depth: 3.0 Tunneling Position: 00:00 Tunneling Depth: 0 Surrounding Tissue Appearance: Rolled Edges and Rash/Irritation Surrounding Tissue Temp: Warm Drainage Amount: Large Drainage Description: Serosanguineous Drainage Odor: No Odor Left Ischium: Bed Appearance: Beefy Red, Bone Palpable, Paola, Rolled Edges and Yellow Percent of Wound Bed Granulated/Red: 90 Percent of Devitalized: 10 Length (cm): 0.5 Width (cm): 0.5 Depth (cm): 2.5 CM Sq: 0.250 Tunneling Position: 10:00 Tunneling Depth: 4 Surrounding Tissue Appearance: Paola and Macerated Surrounding Tissue Temp: Warm Drainage Amount: Large Drainage Description: Serosanguineous Drainage Odor: No Odor Results Height: 5 ft 11 in Weight: 102.058 kg Body Mass Index: 31.4 Assessment/Plan Assessment/Plan (1) Stage IV pressure ulcer of sacral region: Code(s): L89.154 - Pressure ulcer of sacral region, stage 4 (2) Pressure injury of right ischium, stage 4: Code(s): L89.314 - Pressure ulcer of right buttock, stage 4 (3) Pressure injury of left ischium, stage 4: Code(s): L89.324 - Pressure ulcer of left buttock, stage 4 (4) Cauda equina spinal cord injury: Qualifiers: Encounter type: subsequent encounter Qualified Code(s): S34.3XXD - Injury of cauda equina, subsequent encounter Code(s): S34.3XXA - Injury of cauda equina, initial encounter (5) Diabetes mellitus due to underlying condition with diabetic neuropathy, withlong-term current use of insulin: Code(s): E08.40 - Diabetes mellitus due to underlying condition with diabetic neuropathy,unspecified; 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 Will have to closely monitor the left ischial ulcer. If pain worsens or there is evidence ofexposed bone, we may consider imaging to check for osteomyelitis. Podiatry following the patient's foot ulcers. Follow-up in 1 month See Instructions for Orders See Instructions for Orders See Wound Discharge Instructions for Orders: Dictated By: Cathy Brar MD DD/ 112 Signed By: 03/14/24 1123 [facility]11-12-2024 Progress note Author Cathy Brar [facility] Note Date/Time February 08, 2024 11:44am [facility] [address] [place] [address] Wound Center Provider Note Signed Patient: Ganga Stinson MR#: [id number] : 1960 Acct:[id number] Age/Sex: 63 / M Copies to: MD Fidel Whitmore MD~ HPI Date of Visit Date of Visit: Date of Service: 02/08/2024 Time of Service: 11:41 Narrative HPI: Patient being followed for sacral, left, right ischial ulcers. Patient's is doing dressing changes. Drainage has improved. Surrounding skin maceration is greatly improved. No exposed bone is noted. Patient states his foot ulcers are healing. These are being followed by podiatry. Patient states sugars have been under control. He is eating. Denies other new medical problems. Primary care physician is Dr. Abbott. Subjective Pain Buttock: Pain Intensity: 5 Wound/Ulcer History When did wound start?: 10 plus years Mode of Arrival/ Mattress Stuffer: Personal vehicle and Family Assistive Device Used Today: Wheelchair Lives with:: Spouse Appetite Description: Within Normal Limits Smoking Status: Never smoker Constitutional Constitutional: Denies [...] Resp BP O2 Del Method 98.1 F 64 18 125/66 Room Air 02/08/24 10:51 02/08/24 10:51 02/08/24 10:51 02/08/24 10:51 02/08/24 10:51 Const General: cooperative and no acute distress Skin Wounds: wounds noted Neuro General: patient alert and patient awake Lower/Upper Extremity Exam Vascular Exam-Pulses Left Brachial: Pulse Assessment Method: NIBP Objective Meds/Allergies Home Medications citalopram 40 mg tablet (Celexa) 40 mg PO DAILY Depression 12/07/16 [History Confirmed 10/05/23] lisinopril 10 mg tablet 20 mg PO QAM HTN 12/07/16 [History Confirmed 10/05/23] amlodipine 10 mg tablet 10 mg PO QAM HTN 12/08/16 [History Confirmed 10/05/23] atenolol 100 mg tablet 100 mg PO DAILY HTN 11/03/17 [History Confirmed 10/05/23] glipizide 10 mg tablet 10 mg PO BID 06/30/18 [History Confirmed 10/05/23] sitagliptin phosphate 100 mg tablet (Januvia) 100 mg PO DAILY 07/29/21 [History Confirmed 10/05/23] oxybutynin chloride 15 mg tablet,extended release 24 hr 15 mg PO DAILY 02/07/23 [History Confirmed 10/05/23] fenofibrate nanocrystallized 145 mg tablet 145 mg PO QHS #0 tabs 02/13/23 [Rx Confirmed 10/05/23] oxybutynin chloride 5 mg tablet,extended release 24 hr 15 mg (3 x 5 mg) PO DAILY30 days #90 tabs 02/13/23 [Rx Confirmed 10/05/23] atorvastatin 40 mg tablet 40 mg PO DAILY 05/04/23 [History Confirmed 10/05/23] Allergies vancomycin Adverse Reaction (Severe, Verified 02/08/23 12:50) Shut kidneys down ferrous sulfate Adverse Reaction (Verified 02/07/23 15:14) Itching Wound/Ulcer Sacrum: Bed Appearance: Beefy Red, Paola, Rolled Edges and Yellow Percent of Wound Bed Granulated/Red: 90 Percent of Devitalized: 10 Length (cm): 2.5 Width (cm): 1.8 Depth (cm): 3 CM Sq: 4.500 Undermining Position: 360 Undermining Depth: 4.0 Surrounding Tissue Appearance: Macerated and Rash/Irritation Surrounding Tissue Temp: Warm Drainage Amount: Moderate Drainage Description: Serosanguineous and Yellow Drainage Odor: No Odor Lidocaine Applied Topically: 2% Jelly Right Ischium: Bed Appearance: Beefy Red, Paola and Yellow Percent of Wound Bed Granulated/Red: 90 Percent of Devitalized: 10 Length (cm): 6.6 Width (cm): 7.4 Depth (cm): 4.0 CM Sq: 48.840 Undermining Position: 8-11 Undermining Depth: 3.5 Tunneling Position: 00:00 Tunneling Depth: 0 Surrounding Tissue Appearance: Rolled Edges and Rash/Irritation Surrounding Tissue Temp: Warm Drainage Amount: Large Drainage Description: Serosanguineous Drainage Odor: No Odor Left Ischium: Bed Appearance: Beefy Red, Paola, Rolled Edges and Yellow Percent of Wound Bed Granulated/Red: 90 Percent of Devitalized: 10 Length (cm): 0.5 Width (cm): 1.0 Depth (cm): 2.5 CM Sq: 0.500 Tunneling Position: 10:00 Tunneling Depth: 4 Surrounding Tissue Appearance: Macerated Surrounding Tissue Temp: Warm Drainage Amount: Large Drainage Description: Serosanguineous Drainage Odor: No Odor Results Height: 5 ft 11 in Weight: 102.058 kg Body Mass Index: 31.4 Assessment/Plan Assessment/Plan (1) Stage IV pressure ulcer of sacral region: Code(s): L89.154 - Pressure ulcer of sacral region, stage 4 (2) Pressure injury of right ischium, stage 4: Code(s): L89.314 - Pressure ulcer of right buttock, stage 4 (3) Pressure injury of left ischium, stage 4: Code(s): L89.324 - Pressure ulcer of left buttock, stage 4 (4) Cauda equina spinal cord injury: Qualifiers: Encounter type: subsequent encounter Qualified Code(s): S34.3XXD - Injury of cauda equina, subsequent encounter Code(s): S34.3XXA - Injury of cauda equina, initial encounter (5) Diabetes mellitus due to underlying condition with diabetic neuropathy, withlong-term current use of insulin: Code(s): E08.40 - Diabetes mellitus due to underlying condition with diabetic neuropathy,unspecified; Z79.4 - retirement (current) use of insulin Plan Continue with current dressing changes and pressure relief. Podiatry following the patient's foot ulcers. Follow-up in 1 month See Instructions for Orders See Instructions for Orders See Wound Discharge Instructions for Orders: Dictated By: Cathy Brar MD DD/ 114 Signed By: <Electronically signed by MD Cathy Brar> 02/08/24 1144 [facility] Work Phone: 1(790) 845-843911-12-2024 Evaluation note* Diagnosis Onset Date Resolution Status Admit Date Diabetes mellitus due to underlying condition with diabetic neuropathy, wit acute Novembe 2023 10:48am Pressure injury of left ischium, stage 4 acute February 08, 2024 10:48am Pressure injury of right ischium, stage 4 acute February 08, 2024 10:48am Stage IV pressure ulcer of sacral region acute February 07, 10:48am Cauda equina spinal cord injury chronic February 07 10:48am [facility] Work Phone: 1(371) 759-234911-12-2024 [place] [address] Wound Center Provider Note Signed Patient: Ganga Stinson MR#: [id number] : 1960 Acct:[id number] Age/Sex: 63 / M Copies to: MD Fidel Whitmore MD~ HPI Date of Visit Date of Visit: Date of Service: 02/08/2024 Time of Service: 11:41 Narrative HPI: Patient being followed for sacral, left, right ischial ulcers. Patient's is doing dressing changes. Drainage has improved. Surrounding skin maceration is greatly improved. No exposed bone is noted. Patient states his foot ulcers are healing. These are being followed by podiatry. Patient states sugars have been under control. He is eating. Denies other new medical problems. Primary care physician is Dr. Abbott. Subjective Pain Buttock: Pain Intensity: 5 Wound/Ulcer History When did wound start?: 10 plus years Mode of Arrival/ Mattress Stuffer: Personal vehicle and Family Assistive Device Used Today: Wheelchair Lives with:: Spouse Appetite Description: Within Normal Limits Smoking Status: Never smoker Constitutional Constitutional: Denies [...] Resp BP O2 Del Method 98.1 F 64 18 125/66 Room Air 02/08/24 10:51 02/08/24 10:51 02/08/24 10:51 02/08/24 10:51 02/08/24 10:51 Const General: cooperative and no acute distress Skin Wounds: wounds noted Neuro General: patient alert and patient awake Lower/Upper Extremity Exam Vascular Exam-Pulses Left Brachial: Pulse Assessment Method: NIBP Objective Meds/Allergies Home Medications citalopram 40 mg tablet (Celexa) 40 mg PO DAILY Depression 12/07/16 [History Confirmed 10/05/23] lisinopril 10 mg tablet 20 mg PO QAM HTN 12/07/16 [History Confirmed 10/05/23] amlodipine 10 mg tablet 10 mg PO QAM HTN 12/08/16 [History Confirmed 10/05/23] atenolol 100 mg tablet 100 mg PO DAILY HTN 11/03/17 [History Confirmed 10/05/23] glipizide 10 mg tablet 10 mg PO BID 06/30/18 [History Confirmed 10/05/23] sitagliptin phosphate 100 mg tablet (Januvia) 100 mg PO DAILY 07/29/21 [History Confirmed 10/05/23] oxybutynin chloride 15 mg tablet,extended release 24 hr 15 mg PO DAILY 02/07/23 [History Confirmed 10/05/23] fenofibrate nanocrystallized 145 mg tablet 145 mg PO QHS #0 tabs 02/13/23 [Rx Confirmed 10/05/23] oxybutynin chloride 5 mg tablet,extended release 24 hr 15 mg (3 x 5 mg) PO DAILY30 days #90 tabs 02/13/23 [Rx Confirmed 10/05/23] atorvastatin 40 mg tablet 40 mg PO DAILY 05/04/23 [History Confirmed 10/05/23] Allergies vancomycin Adverse Reaction (Severe, Verified 02/08/23 12:50) Shut kidneys down ferrous sulfate Adverse Reaction (Verified 02/07/23 15:14) Itching Wound/Ulcer Sacrum: Bed Appearance: Beefy Red, Paola, Rolled Edges and Yellow Percent of Wound Bed Granulated/Red: 90 Percent of Devitalized: 10 Length (cm): 2.5 Width (cm): 1.8 Depth (cm): 3 CM Sq: 4.500 Undermining Position: 360 Undermining Depth: 4.0 Surrounding Tissue Appearance: Macerated and Rash/Irritation Surrounding Tissue Temp: Warm Drainage Amount: Moderate Drainage Description: Serosanguineous and Yellow Drainage Odor: No Odor Lidocaine Applied Topically: 2% Jelly Right Ischium: Bed Appearance: Beefy Red, Paola and Yellow Percent of Wound Bed Granulated/Red: 90 Percent of Devitalized: 10 Length (cm): 6.6 Width (cm): 7.4 Depth (cm): 4.0 CM Sq: 48.840 Undermining Position: 8-11 Undermining Depth: 3.5 Tunneling Position: 00:00 Tunneling Depth: 0 Surrounding Tissue Appearance: Rolled Edges and Rash/Irritation Surrounding Tissue Temp: Warm Drainage Amount: Large Drainage Description: Serosanguineous Drainage Odor: No Odor Left Ischium: Bed Appearance: Beefy Red, Paola, Rolled Edges and Yellow Percent of Wound Bed Granulated/Red: 90 Percent of Devitalized: 10 Length (cm): 0.5 Width (cm): 1.0 Depth (cm): 2.5 CM Sq: 0.500 Tunneling Position: 10:00 Tunneling Depth: 4 Surrounding Tissue Appearance: Macerated Surrounding Tissue Temp: Warm Drainage Amount: Large Drainage Description: Serosanguineous Drainage Odor: No Odor Results Height: 5 ft 11 in Weight: 102.058 kg Body Mass Index: 31.4 Assessment/Plan Assessment/Plan (1) Stage IV pressure ulcer of sacral region: Code(s): L89.154 - Pressure ulcer of sacral region, stage 4 (2) Pressure injury of right ischium, stage 4: Code(s): L89.314 - Pressure ulcer of right buttock, stage 4 (3) Pressure injury of left ischium, stage 4: Code(s): L89.324 - Pressure ulcer of left buttock, stage 4 (4) Cauda equina spinal cord injury: Qualifiers: Encounter type: subsequent encounter Qualified Code(s): S34.3XXD - Injury of cauda equina, subsequent encounter Code(s): S34.3XXA - Injury of cauda equina, initial encounter (5) Diabetes mellitus due to underlying condition with diabetic neuropathy, withlong-term current use of insulin: Code(s): E08.40 - Diabetes mellitus due to underlying condition with diabetic neuropathy,unspecified; 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 Podiatry following the patient's foot ulcers. Follow-up in 1 month See Instructions for Orders See Instructions for Orders See Wound Discharge Instructions for Orders: Dictated By: Cathy Brar MD DD/ 1141 Signed By: 02/08/24 1144 [facility]10-24-2024 History of Present illness Narrative * Fidel Abbott MD - 01/20/2024 12:25 PM [...] and use hydroxyzine PRN. documented in this encounterSaint Alexius [id number] Evaluation note* Diagnosis Stage 3a chronic kidney disease ([facility])- Primary documented in this encounter [facility]10-16-2024 Miscellaneous Notes* Telephone Encounter - Fatemeh Ant - 01/12/2024 9:03 AM EDT LM to schedule new pt appt. [facility] Telephone encounter Note* Telephone Encounter - Fatemeh Jeannemaryaustin - 01/12/2024 9:03 AM EDT LM to schedule new pt appt. [facility]10-08-2024 Progress note Author Cathy Brar [facility] Note Date/Time January 04, 2024 11 :52am [facility] [address] [place] [address] Wound Center Provider Note Signed Patient: Ganga Stinson MR#: [id number] : 1960 Acct:[id number] Age/Sex: 63 / M Copies to: MD Fidel Whitmore MD~ HPI Date of Visit Date of Visit: Date of Service: 01/04/2024 Time of Service: 10:50 Narrative HPI: Patient being followed for sacral, left, right ischial ulcers. The increased drainage we have at his last visit did improve and then worsened and is now improving again. A lot of drainage seems to be coming from the left ischial ulcer. There is less maceration of the surrounding skin compared to his last visit. Left ischial ulcer is deeper. The other ulcers are improved. No exposed bone is noted. Patient states his foot ulcers are 75% healed. These are being followed by podiatry. Patient states sugars have been under control. He is eating. Denies other new medical problems. Primary care physician is Dr. Abbott. Subjective Pain Buttock: Pain Intensity: 5 Wound/Ulcer History When did wound start?: 10 plus years Mode of Arrival/ Mattress Stuffer: Personal vehicle and Family Assistive Device Used Today: Wheelchair Lives with:: Spouse Appetite Description: Within Normal Limits Smoking Status: Never smoker Constitutional Constitutional: Denies [...] Temp Pulse Resp BP O2 Del Method 98.2 F 68 18 164/73 H Room Air 01/04/24 10:31 01/04/24 10:31 01/04/24 10:31 01/04/24 10:31 01/04/24 10:31 Const General: cooperative and no acute distress Skin Wounds: wounds noted Neuro General: patient alert and patient awake Lower/Upper Extremity Exam Vascular Exam-Pulses Left Brachial: Pulse Assessment Method: NIBP Objective Meds/Allergies Home Medications citalopram 40 mg tablet (Celexa) 40 mg PO DAILY Depression 12/07/16 [History Confirmed 10/05/23] lisinopril 10 mg tablet 20 mg PO QAM HTN 12/07/16 [History Confirmed 10/05/23] amlodipine 10 mg tablet 10 mg PO QAM HTN 12/08/16 [History Confirmed 10/05/23] atenolol 100 mg tablet 100 mg PO DAILY HTN 08/08/18 [History Confirmed 10/05/23] glipizide 10 mg tablet 10 mg PO BID 06/30/18 [History Confirmed 10/05/23] sitagliptin phosphate 100 mg tablet (Januvia) 100 mg PO DAILY 07/29/21 [History Confirmed 10/05/23] oxybutynin chloride 15 mg tablet,extended release 24 hr 15 mg PO DAILY 02/07/23 [History Confirmed 10/05/23] fenofibrate nanocrystallized 145 mg tablet 145 mg PO QHS #0 tabs 02/13/23 [Rx Confirmed 10/05/23] oxybutynin chloride 5 mg tablet,extended release 24 hr 15 mg (3 x 5 mg) PO DAILY30 days #90 tabs 02/13/23 [Rx Confirmed 10/05/23] atorvastatin 40 mg tablet 40 mg PO DAILY 05/04/23 [History Confirmed 10/05/23] Allergies vancomycin Adverse Reaction (Severe, Verified 02/08/23 12:50) Shut kidneys down ferrous sulfate Adverse Reaction (Verified 02/07/23 15:14) Itching Wound/Ulcer Sacrum: Bed Appearance: Beefy Red, Paola and Yellow Percent of Wound Bed Granulated/Red: 90 Percent of Devitalized: 10 Length (cm): 2.9 Width (cm): 1.5 Depth (cm): 3 CM Sq: 4.350 Undermining Position: 360 Undermining Depth: 3.5 Surrounding Tissue Appearance: Bright Red and Rash/Irritation Surrounding Tissue Temp: Warm Drainage Amount: Large Drainage Description: Serosanguineous Drainage Odor: No Odor Right Ischium: Bed Appearance: Beefy Red, Paola and Yellow Percent of Wound Bed Granulated/Red: 90 Percent of Devitalized: 10 Length (cm): 7 Width (cm): 7.5 Depth (cm): 4.0 CM Sq: 52.500 Undermining Position: 8-11 Undermining Depth: 4.0 Tunneling Position: 00:00 Tunneling Depth: 0 Surrounding Tissue Appearance: Rolled Edges and Rash/Irritation Surrounding Tissue Temp: Warm Drainage Amount: Large Drainage Description: Serosanguineous Drainage Odor: No Odor Left Ischium: Bed Appearance: Beefy Red, Paola, Rolled Edges and Yellow Percent of Wound Bed Granulated/Red: 90 Percent of Devitalized: 10 Length (cm): 0.7 Width (cm): 0.8 Depth (cm): 2.9 CM Sq: 0.560 Tunneling Position: 10:00 Tunneling Depth: 3 Surrounding Tissue Appearance: Paola Surrounding Tissue Temp: Warm Drainage Amount: Large Drainage Description: Serosanguineous Drainage Odor: No Odor Results Height: 5 ft 11 in Weight: 102.058 kg Body Mass Index: 31.4 Assessment/Plan Assessment/Plan (1) Stage IV pressure ulcer of sacral region: Code(s): L89.154 - Pressure ulcer of sacral region, stage 4 (2) Pressure injury of right ischium, stage 4: Code(s): L89.314 - Pressure ulcer of right buttock, stage 4 (3) Pressure injury of left ischium, stage 4: Code(s): L89.324 - Pressure ulcer of left buttock, stage 4 (4) Cauda equina spinal cord injury: Qualifiers: Encounter type: subsequent encounter Qualified Code(s): S34.3XXD - Injury of cauda equina, subsequent encounter Code(s): S34.3XXA - Injury of cauda equina, initial encounter (5) Diabetes mellitus due to underlying condition with diabetic neuropathy, withlong-term current use of insulin: Code(s): E08.40 - Diabetes mellitus due to underlying condition with diabetic neuropathy,unspecified; 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 Podiatry following the patient's foot ulcers. Follow-up in 1 month See Instructions for Orders See Instructions for Orders See Wound Discharge Instructions for Orders: Dictated By: Cathy Brar MD DD/ 105 Signed By: <Electronically signed by MD Cathy Brar> 01/04/24 1052 [facility] Work Phone: 1(985) 499-456910-08-2024 [place] [address] Wound Center Provider Note Signed Patient: Ganga Stinson MR#: [id number] : 1960 Acct:[id number] Age/Sex: 63 / M Copies to: MD Fidel Whitmore MD~ HPI Date of Visit Date of Visit: Date of Service: 01/04/2024 Time of Service: 10:50 Narrative HPI: Patient being followed for sacral, left, right ischial ulcers. The increased drainage we have at his last visit did improve and then worsened and is now improving again. A lot of drainage seems to becoming from the left ischial ulcer. There is less maceration of the surrounding skin compared to his last visit. Left ischial ulcer is deeper. The other ulcers are improved. No exposed bone is noted. Patient states his foot ulcers are 75% healed. These are being followed by podiatry. Patient states sugars have been under control. He is eating. Denies other new medical problems. Primary care physician is Dr. Abbott. Subjective Pain Buttock: Pain Intensity: 5 Wound/Ulcer History When did wound start?: 10 plus years Mode of Arrival/ Mattress Stuffer: Personal vehicle and Family Assistive Device Used Today: Wheelchair Lives with:: Spouse Appetite Description: Within Normal Limits Smoking Status: Never smoker Constitutional Constitutional: Denies [...] Temp Pulse Resp BP O2 Del Method 98.2 F 68 18 164/73 H Room Air 01/04/24 10:31 01/04/24 10:31 01/04/24 10:31 01/04/24 10:31 01/04/24 10:31 Const General: cooperative and no acute distress Skin Wounds: wounds noted Neuro General: patient alert and patient awake Lower/Upper Extremity Exam Vascular Exam-Pulses Left Brachial: Pulse Assessment Method: NIBP Objective Meds/Allergies Home Medications citalopram 40 mg tablet (Celexa) 40 mg PO DAILY Depression 12/07/16 [History Confirmed 10/05/23] lisinopril 10 mg tablet 20 mg PO QAM HTN 12/07/16 [History Confirmed 10/05/23] amlodipine 10 mg tablet 10 mg PO QAM HTN 12/08/16 [History Confirmed 10/05/23] atenolol 100 mg tablet 100 mg PO DAILY HTN 11/03/17 [History Confirmed 10/05/23] glipizide 10 mg tablet 10 mg PO BID 06/30/18 [History Confirmed 10/05/23] sitagliptin phosphate 100 mg tablet (Januvia) 100 mg PO DAILY 07/29/21 [History Confirmed 10/05/23] oxybutynin chloride 15 mg tablet,extended release 24 hr 15 mg PO DAILY 02/07/23 [History Confirmed 10/05/23] fenofibrate nanocrystallized 145 mg tablet 145 mg PO QHS #0 tabs 02/13/23 [Rx Confirmed 10/05/23] oxybutynin chloride 5 mg tablet,extended release 24 hr 15 mg (3 x 5 mg) PO DAILY30 days #90 tabs 02/13/23 [Rx Confirmed 10/05/23] atorvastatin 40 mg tablet 40 mg PO DAILY 05/04/23 [History Confirmed 10/05/23] Allergies vancomycin Adverse Reaction (Severe, Verified 02/08/23 12:50) Shut kidneys down ferrous sulfate Adverse Reaction (Verified 02/07/23 15:14) Itching Wound/Ulcer Sacrum: Bed Appearance: Beefy Red, Paola and Yellow Percent of Wound Bed Granulated/Red: 90 Percent of Devitalized: 10 Length (cm): 2.9 Width (cm): 1.5 Depth (cm): 3 CM Sq: 4.350 Undermining Position: 360 Undermining Depth: 3.5 Surrounding Tissue Appearance: Bright Red and Rash/Irritation Surrounding Tissue Temp: Warm Drainage Amount: Large Drainage Description: Serosanguineous Drainage Odor: No Odor Right Ischium: Bed Appearance: Beefy Red, Paola and Yellow Percent of Wound Bed Granulated/Red: 90 Percent of Devitalized: 10 Length (cm): 7 Width (cm): 7.5 Depth (cm): 4.0 CM Sq: 52.500 Undermining Position: 8-11 Undermining Depth: 4.0 Tunneling Position: 00:00 Tunneling Depth: 0 Surrounding Tissue Appearance: Rolled Edges and Rash/Irritation Surrounding Tissue Temp: Warm Drainage Amount: Large Drainage Description: Serosanguineous Drainage Odor: No Odor Left Ischium: Bed Appearance: Beefy Red, Paola, Rolled Edges and Yellow Percent of Wound Bed Granulated/Red: 90 Percent of Devitalized: 10 Length (cm): 0.7 Width (cm): 0.8 Depth (cm): 2.9 CM Sq: 0.560 Tunneling Position: 10:00 Tunneling Depth: 3 Surrounding Tissue Appearance: Paola Surrounding Tissue Temp: Warm Drainage Amount: Large Drainage Description: Serosanguineous Drainage Odor: No Odor Results Height: 5 ft 11 in Weight: 102.058 kg Body Mass Index: 31.4 Assessment/Plan Assessment/Plan (1) Stage IV pressure ulcer of sacral region: Code(s): L89.154 - Pressure ulcer of sacral region, stage 4 (2) Pressure injury of right ischium, stage 4: Code(s): L89.314 - Pressure ulcer of right buttock, stage 4 (3) Pressure injury of left ischium, stage 4: Code(s): L89.324 - Pressure ulcer of left buttock, stage 4 (4) Cauda equina spinal cord injury: Qualifiers: Encounter type: subsequent encounter Qualified Code(s): S34.3XXD - Injury of cauda equina, subsequent encounter Code(s): S34.3XXA - Injury of cauda equina, initial encounter (5) Diabetes mellitus due to underlying condition with diabetic neuropathy, withlong-term current use of insulin: Code(s): E08.40 - Diabetes mellitus due to underlying condition with diabetic neuropathy,unspecified; Z79.4 - retirement (current) use of insulin Plan Continue with current dressing changes and pressure relief. Podiatry following the patient's foot ulcers. Follow-up in 1 month See Instructions for Orders See Instructions for Orders See Wound Discharge Instructions for Orders: Dictated By: Cathy Brar MD DD/ 1050 Signed By: 01/04/24 1052 [facility]08-22-2024 History of Present illness Narrative * Fidel Abbott MD - 11/18/2023 2:11 PM EDTAssociated Problem(s): Pruritus C/o itching and try hydroxyzine. * Fidel Abbott MD - 11/18/2023 2:11 PM EDTAssociated Problem(s): Cauda equina syndrome (CMS/HCC) Patient stable * Fidel Abbott MD - 11/18/2023 1:30 PM EDT Images from the original note were not included. Subjective Patient ID: Ganga Stinson is a 63 y.o. male who presents for Follow-up (Check up/Itchy from waist up). Follow up DM, HTN, depression, incontinence, and GERD. Patient stable today. Following with wound care for leg ulcers and gradually healing. Not checking BS away from office and due for A1C. Tries toeat well and stick to ADA diet. Denies signs of elevated BS such as polyuria, polyphagia or polydipsia. Checking BP PRN and typically controlled. BP elevated today. Taking medication daily and tolerat ing without side effects. Depression controlled with celexa. Not down or sad and feels happier. Urine symptoms controlled with medication. Not going as often or having leakage. Able to hold urine better. GERD controlled with omeprazole. Denies epigastric pain or burning and not waking up with symptoms. Review of Systems Constitutional: Negative for fatigue. [...] Assessment/Plan Problem List Items Addressed This Visit Benign hypertension (CMS/HCC) Cauda equina syndrome (CMS/HCC) Patient stable Major depressive disorder, recurrent episode, mild (HCC) (CMS/HCC) Incontinence overflow, urine Type 2 diabetes mellitus with hyperglycemia, without long-term current use of insulin (CMS/HCC) - Primary Relevant Orders Albumin, urine, random Hemoglobin A1c Lipid panel Chronic kidney disease, stage 3a (HCC) (CMS/HCC) Pruritus C/o itching and try hydroxyzine. Relevant Medications hydrOXYzine HCl (Atarax) 25 MG tablet Encounter for long-term (current) use of medications Relevant Orders Hepatic function panel Basic metabolic panel CBC and differential documented in this encounterSaint Alexius [id number] Progress note Author Cathy Brar [facility] Note Date/Time November 09, 2023 1: 07pm [facility] [address] [place] [address] Wound Center Provider Note Signed Patient: Ganga Stinson MR#: [id number] : 1960 Acct:[id number] Age/Sex: 63 / M Copies to: MD Fidel Whitmore MD~ HPI Date of Visit Date of Visit: Date of Service: 11/09/2023 Time of Service: 12:02 Narrative HPI: Patient being followed for sacral, left, right ischial ulcers. Patient developed increased drainage from the sites resulting in maceration and inflammation of a lot of the surrounding skin in those areas. The drainage did increase when the patient was started on compressive wraps for his lower extremities to help heal foot ulcers. These are being followed by podiatry. Patient previously had a wound VAC on his foot ulcers and he currently does havehome health for the foot ulcers. Currently, home health is not addressing his sacral and ischial ulcers. The patient's sacral and ischial ulcers do have pink and red granulation tissue. No exposed bone. Patient states changes have been under control. He is eating. Denies other newmedical problems. Primary care physician is Dr. Abbott. Subjective Pain Buttock: Pain Intensity: 6 Wound/Ulcer History When did wound start?: 10 plus years Mode of Arrival/ Mattress Stuffer: Personal vehicle and Family Assistive Device Used Today: Wheelchair Lives with:: Spouse Appetite Description: Within Normal Limits Smoking Status: Never smoker Constitutional Constitutional: Denies [...] Resp BP O2 Del Method 97.7 F 67 18 120/58 L Room Air 11/09/23 10:45 10/05/23 10:43 10/05/23 10:43 10/05/23 10:43 10/05/23 10:43 Const General: cooperative and no acute distress Skin Wounds: wounds noted Neuro General: patient alert and patient awake Lower/Upper Extremity Exam Vascular Exam-Pulses Left Brachial: Pulse Assessment Method: NIBP Objective Meds/Allergies Home Medications citalopram 40 mg tablet (Celexa) 40 mg PO DAILY Depression 12/07/16 [History Confirmed 10/05/23] lisinopril 10 mg tablet 20 mg PO QAM HTN 12/07/16 [History Confirmed 10/05/23] amlodipine 10 mg tablet 10 mg PO QAM HTN 12/08/16 [History Confirmed 10/05/23] atenolol 100 mg tablet 100 mg PO DAILY HTN 11/03/17 [History Confirmed 10/05/23] glipizide 10 mg tablet 10 mg PO BID 06/30/18 [History Confirmed 10/05/23] sitagliptin phosphate 100 mg tablet (Januvia) 100 mg PO DAILY 07/29/21 [History Confirmed 10/05/23] oxybutynin chloride 15 mg tablet,extended release 24 hr 15 mg PO DAILY 02/07/23 [History Confirmed 10/05/23] fenofibrate nanocrystallized 145 mg tablet 145 mg PO QHS #0 tabs 02/13/23 [Rx Confirmed 10/05/23] oxybutynin chloride 5 mg tablet,extended release 24 hr 15 mg (3 x 5 mg) PO DAILY30 days #90 tabs 02/13/23 [Rx Confirmed 10/05/23] atorvastatin 40 mg tablet 40 mg PO DAILY 05/04/23 [History Confirmed 10/05/23] Allergies vancomycin Adverse Reaction (Severe, Verified 02/08/23 12:50) Shut kidneys down ferrous sulfate Adverse Reaction (Verified 02/07/23 15:14) Itching Wound/Ulcer Sacrum: Bed Appearance: Beefy Red, Bone Palpable, Paola and Yellow Percent of Wound Bed Granulated/Red: 90 Percent of Devitalized: 10 Length (cm): 2.5 Width (cm): 2 Depth (cm): 3 CM Sq: 5.000 Undermining Position: 360 Undermining Depth: 4 Surrounding Tissue Appearance: Bright Red and Rash/Irritation Surrounding Tissue Temp: Warm Drainage Amount: Large Drainage Description: Serosanguineous Drainage Odor: No Odor Right Ischium: Bed Appearance: Beefy Red, Paola and Yellow Percent of Wound Bed Granulated/Red: 90 Percent of Devitalized: 10 Length (cm): 7 Width (cm): 8 Depth (cm): 4.5 CM Sq: 56.000 Undermining Position: 8-11 (deepest at 9) Undermining Depth: 3.7 Tunneling Position: 08:00 Tunneling Depth: 6 Surrounding Tissue Appearance: Rolled Edges and Rash/Irritation Surrounding Tissue Temp: Warm Drainage Amount: Large Drainage Description: Serosanguineous Drainage Odor: No Odor Left Ischium: Bed Appearance: Beefy Red, Paola, Rolled Edges and Yellow Percent of Wound Bed Granulated/Red: 90 Percent of Devitalized: 10 Length (cm): 0.7 Width (cm): 0.8 Depth (cm): 2.3 CM Sq: 0.560 Tunneling Position: 10:00 Tunneling Depth: 3 Surrounding Tissue Appearance: Paola Surrounding Tissue Temp: Warm Drainage Amount: Large Drainage Description: Serosanguineous Drainage Odor: No Odor Results Height: 5 ft 11 in Weight: 102.058 kg Body Mass Index: 31.4 Assessment/Plan Assessment/Plan (1) Stage IV pressure ulcer of sacral region: Code(s): L89.154 - Pressure ulcer of sacral region, stage 4 (2) Pressure injury of right ischium, stage 4: Code(s): L89.314 - Pressure ulcer of right buttock, stage 4 (3) Pressure injury of left ischium, stage 4: Code(s): L89.324 - Pressure ulcer of left buttock, stage 4 (4) Cauda equina spinal cord injury: Qualifiers: Encounter type: subsequent encounter Qualified Code(s): S34.3XXD - Injury of cauda equina, subsequent encounter Code(s): S34.3XXA - Injury of cauda equina, initial encounter (5) Diabetes mellitus due to underlying condition with diabetic neuropathy, withlong-term current use of insulin: Code(s): E08.40 - Diabetes mellitus due to underlying condition with diabetic neuropathy,unspecified; 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 Podiatry following the patient's foot ulcers. We will check to see if home health can start addressing the sacral and ischial ulcers. Patient will follow-up in 2 months as the is unable to take off of work every month to bring him here. See Instructions for Orders See Instructions for Orders See Wound Discharge Instructions for Orders: Dictated By: Cathy Brar MD DD/ 1202 Signed By: <Electronically signed by MD Cathy Brar> 11/09/23 1203 [facility] Work Phone: 1(228) 583-759008-13-2024 [place] [address] Wound Center Provider Note Signed Patient: Ganga Stinson MR#: [id number] : 1960 Acct:[id number] Age/Sex: 63 / M Copies to: MD Fidel Whitmore MD~ HPI Date of Visit Date of Visit: Date of Service: 11/09/2023 Time of Service: 12:02 Narrative HPI: Patient being followed for sacral, left, right ischial ulcers. Patient developed increased drainagefrom the sites resulting in maceration and inflammation of a lot of the surrounding skin in those areas. The drainage did increase when the patient was started on compressive wraps for his lower extremities to help heal foot ulcers. These are being followed by podiatry. Patient previously had a woun d VAC on his foot ulcers and [facility]. Currently, home health is not addressing his sacral and ischial ulcers. The patient's sacral and ischial ulcers do have pink and red granulation tissue. No exposed bone. Patient states changes have been under control. He is eating. Denies other newmedical problems. Primary care physician is Dr. Abbott. Subjective Pain Buttock: Pain Intensity: 6 Wound/Ulcer History When did wound start?: 10 plus years Mode of Arrival/ Mattress Stuffer: Personal vehicle and Family Assistive Device Used Today: Wheelchair Lives with:: Spouse Appetite Description: Within Normal Limits Smoking Status: Never smoker Constitutional Constitutional: Denies [...] Resp BP O2 Del Method 97.7 F 67 18 120/58 L Room Air 11/09/23 10:45 10/05/23 10:43 10/05/23 10:43 10/05/23 10:43 10/05/23 10:43 Const General: cooperative and no acute distress Skin Wounds: wounds noted Neuro General: patient alert and patient awake Lower/Upper Extremity Exam Vascular Exam-Pulses Left Brachial: Pulse Assessment Method: NIBP Objective Meds/Allergies Home Medications citalopram 40 mg tablet (Celexa) 40 mg PO DAILY Depression 12/07/16 [History Confirmed 10/05/23] lisinopril 10 mg tablet 20 mg PO QAM HTN 12/07/16 [History Confirmed 10/05/23] amlodipine 10 mg tablet 10 mg PO QAM HTN 12/08/16 [History Confirmed 10/05/23] atenolol 100 mg tablet 100 mg PO DAILY HTN 11/03/17 [History Confirmed 10/05/23] glipizide 10 mg tablet 10 mg PO BID 06/30/18 [History Confirmed 10/05/23] sitagliptin phosphate 100 mg tablet (Januvia) 100 mg PO DAILY 07/29/21 [History Confirmed 10/05/23] oxybutynin chloride 15 mg tablet,extended release 24 hr 15 mg PO DAILY 02/07/23 [History Confirmed 10/05/23] fenofibrate nanocrystallized 145 mg tablet 145 mg PO QHS #0 tabs 02/13/23 [Rx Confirmed 10/05/23] oxybutynin chloride 5 mg tablet,extended release 24 hr 15 mg (3 x 5 mg) PO DAILY30 days #90 tabs 02/13/23 [Rx Confirmed 10/05/23] atorvastatin 40 mg tablet 40 mg PO DAILY 05/04/23 [History Confirmed 10/05/23] Allergies vancomycin Adverse Reaction (Severe, Verified 02/08/23 12:50) Shut kidneys down ferrous sulfate Adverse Reaction (Verified 02/07/23 15:14) Itching Wound/Ulcer Sacrum: Bed Appearance: Beefy Red, Bone Palpable, Paola and Yellow Percent of Wound Bed Granulated/Red: 90 Percent of Devitalized: 10 Length (cm): 2.5 Width (cm): 2 Depth (cm): 3 CM Sq: 5.000 Undermining Position: 360 Undermining Depth: 4 Surrounding Tissue Appearance: Bright Red and Rash/Irritation Surrounding Tissue Temp: Warm Drainage Amount: Large Drainage Description: Serosanguineous Drainage Odor: No Odor Right Ischium: Bed Appearance: Beefy Red, Paola and Yellow Percent of Wound Bed Granulated/Red: 90 Percent of Devitalized: 10 Length (cm): 7 Width (cm): 8 Depth (cm): 4.5 CM Sq: 56.000 Undermining Position: 8-11 (deepest at 9) Undermining Depth: 3.7 Tunneling Position: 08:00 Tunneling Depth: 6 Surrounding Tissue Appearance: Rolled Edges and Rash/Irritation Surrounding Tissue Temp: Warm Drainage Amount: Large Drainage Description: Serosanguineous Drainage Odor: No Odor Left Ischium: Bed Appearance: Beefy Red, Paola, Rolled Edges and Yellow Percent of Wound Bed Granulated/Red: 90 Percent of Devitalized: 10 Length (cm): 0.7 Width (cm): 0.8 Depth (cm): 2.3 CM Sq: 0.560 Tunneling Position: 10:00 Tunneling Depth: 3 Surrounding Tissue Appearance: Paola Surrounding Tissue Temp: Warm Drainage Amount: Large Drainage Description: Serosanguineous Drainage Odor: No Odor Results Height: 5 ft 11 in Weight: 102.058 kg Body Mass Index: 31.4 Assessment/Plan Assessment/Plan (1) Stage IV pressure ulcer of sacral region: Code(s): L89.154 - Pressure ulcer of sacral region, stage 4 (2) Pressure injury of right ischium, stage 4: Code(s): L89.314 - Pressure ulcer of right buttock, stage 4 (3) Pressure injury of left ischium, stage 4: Code(s): L89.324 - Pressure ulcer of left buttock, stage 4 (4) Cauda equina spinal cord injury: Qualifiers: Encounter type: subsequent encounter Qualified Code(s): S34.3XXD - Injury of cauda equina, subsequent encounter Code(s): S34.3XXA - Injury of cauda equina, initial encounter (5) Diabetes mellitus due to underlying condition with diabetic neuropathy, withlong-term current use of insulin: Code(s): E08.40 - Diabetes mellitus due to underlying condition with diabetic neuropathy,unspecified; 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 Podiatry following the patient's foot ulcers. We will check to see if home health can start addressing the sacral and ischial ulcers. Patient will follow-up in 2 months as the is unable to take off of work every month to bring him here. See Instructions for Orders See Instructions for Orders See Wound Discharge Instructions for Orders: Dictated By: Cathy Brar MD DD/ 01 Signed By: 11/09/[address] [place], [place] 1934207-09-2024 Progress note Author Cathy Brar [facility] Note Date/Time October 05, 2023 12:20 pm [facility] [address] [place] [address] Wound Center Provider Note Signed Patient: Ganga Stinson MR#: [id number] : 1960 Acct:[id number] Age/Sex: 63 / M Copies to: MD Fidel Whitmore MD~ HPI Date of Visit Date of Visit: Date of Service: 10/05/2023 Time of Service: 11:15 Narrative HPI: Last time patient was seen here was about 4 months ago. He has a sacral ulcer and left and right ischial ulcers. Dressing changes are being done at home. Ulcers are clean with pink granulation tissue. There is no exposed bone. No evidence of infection. Patient also has leg and foot ulcers which are being followed by podiatry. Patient is diabetic. Last hemoglobin A1c he states was around 7.2. Primary care physician is Dr. Abbott. Patient also sees a health technical writer. Apparently he was to start on a new medication and will need to be on blood thinners because of the medication. Subjective Pain Buttock: Pain Intensity: 6 Wound/Ulcer History When did wound start?: 10 plus years Mode of Arrival/ Mattress Stuffer: Personal vehicle and Family Assistive Device Used Today: Wheelchair Lives with:: Spouse Appetite Description: Within Normal Limits Smoking Status: Never smoker Constitutional Constitutional: Denies [...] Temp Pulse Resp BP O2 Del Method 98.2 F 67 18 120/58 L Room Air 10/05/23 10:43 10/05/23 10:43 10/05/23 10:43 10/05/23 10:43 10/05/23 10:43 Const General: cooperative and no acute distress Skin Wounds: wounds noted Neuro General: patient alert and patient awake Lower/Upper Extremity Exam Vascular Exam-Pulses Left Brachial: Pulse Assessment Method: NIBP Objective Meds/Allergies Home Medications citalopram 40 mg tablet (Celexa) 40 mg PO DAILY Depression 12/07/16 [History Confirmed 10/05/23] lisinopril 10 mg tablet 20 mg PO QAM HTN 12/07/16 [History Confirmed 10/05/23] amlodipine 10 mg tablet 10 mg PO QAM HTN 12/08/16 [History Confirmed 10/05/23] atenolol 100 mg tablet 100 mg PO DAILY HTN 11/03/17 [History Confirmed 10/05/23] glipizide 10 mg tablet 10 mg PO BID 06/30/18 [History Confirmed 10/05/23] sitagliptin phosphate 100 mg tablet (Januvia) 100 mg PO DAILY 07/29/21 [History Confirmed 10/05/23] oxybutynin chloride 15 mg tablet,extended release 24 hr 15 mg PO DAILY 02/07/23 [History Confirmed 10/05/23] fenofibrate nanocrystallized 145 mg tablet 145 mg PO QHS #0 tabs 02/13/23 [Rx Confirmed 10/05/23] oxybutynin chloride 5 mg tablet,extended release 24 hr 15 mg (3 x 5 mg) PO DAILY30 days #90 tabs 02/13/23 [Rx Confirmed 10/05/23] atorvastatin 40 mg tablet 40 mg PO DAILY 05/04/23 [History Confirmed 10/05/23] Allergies vancomycin Adverse Reaction (Severe, Verified 02/08/23 12:50) Shut kidneys down ferrous sulfate Adverse Reaction (Verified 02/07/23 15:14) Itching Wound/Ulcer Sacrum: Bed Appearance: Beefy Red, Paola and Yellow Percent of Wound Bed Granulated/Red: 90 Percent of Devitalized: 10 Length (cm): 2.6 Width (cm): 1.5 Depth (cm): 2.9 CM Sq: 3.900 Undermining Position: 360 (deepest at 9) Undermining Depth: 4.5 Surrounding Tissue Appearance: Hyperpigmented Surrounding Tissue Temp: Warm Drainage Amount: Large Drainage Description: Serosanguineous Drainage Odor: No Odor Right Ischium: Bed Appearance: Beefy Red, Bone Palpable, Paola and Yellow Percent of Wound Bed Granulated/Red: 90 Percent of Devitalized: 10 Length (cm): 5 Width (cm): 7 Depth (cm): 3.5 CM Sq: 35.000 Undermining Position: 8-11 (deepest at 9) Undermining Depth: 3.7 Surrounding Tissue Appearance: Hyperpigmented Surrounding Tissue Temp: Warm Drainage Amount: Large Drainage Description: Serosanguineous Left Ischium: Bed Appearance: Beefy Red, Paola and Yellow Percent of Wound Bed Granulated/Red: 90 Percent of Devitalized: 10 Length (cm): 0.5 Width (cm): 0.3 Depth (cm): 2.6 CM Sq: 0.150 Surrounding Tissue Appearance: Hyperpigmented Surrounding Tissue Temp: Warm Drainage Amount: Large Drainage Description: Serosanguineous Drainage Odor: No Odor Results Height: 5 ft 11 in Weight: 102.058 kg Body Mass Index: 31.4 Assessment/Plan Assessment/Plan (1) Stage IV pressure ulcer of sacral region: Code(s): L89.154 - Pressure ulcer of sacral region, stage 4 (2) Pressure injury of right ischium, stage 4: Code(s): L89.314 - Pressure ulcer of right buttock, stage 4 (3) Pressure injury of left ischium, stage 4: Code(s): L89.324 - Pressure ulcer of left buttock, stage 4 (4) Cauda equina spinal cord injury: Qualifiers: Encounter type: subsequent encounter Qualified Code(s): S34.3XXD - Injury of cauda equina, subsequent encounter Code(s): S34.3XXA - Injury of cauda equina, initial encounter (5) Diabetes mellitus due to underlying condition with diabetic neuropathy, withlong-term current use of insulin: Code(s): E08.40 - Diabetes mellitus due to underlying condition with diabetic neuropathy,unspecified; Z79.4 - retirement (current) use of insulin Plan Continue with current dressing changes and pressure relief. Okay to start on new medications prescribed by health technical writer. Patient and were told to monitor for evidence of bleeding from the wounds. Follow-up in about 1 month. See Instructions for Orders See Instructions for Orders See Wound Discharge Instructions for Orders: Dictated By: Cathy Brar MD DD/ 1115 Signed By: <Electronically signed by MD Cathy Brar> 10/05/23 [facility] Work Phone: [phone]) 336-633507-09-2024 [place] [address] Wound Center Provider Note Signed Patient: Ganga Stinson MR#: [id number] : 1960 Acct:[id number] Age/Sex: 63 / M Copies to: MD Fidel Whitmore MD~ HPI Date of Visit Date of Visit: Date of Service: 10/05/2023 Time of Service: 11:15 Narrative HPI: Last time patient was seen here was about 4 months ago. He has a sacral ulcer and left and right ischial ulcers. Dressing changes are being done at home. Ulcers are clean with pink granulation tissue. There is no exposed bone. No evidence of infection. Patient also has leg and foot ulcers which are being followed by podiatry. Patient is diabetic. Last hemoglobin A1c he states was around 7.2. Primary care physician is Dr. Abbott. Patient also sees a health technical writer. Apparently he was to start on a new medication and will need to be on blood thinners because of the medication. Subjective Pain Buttock: Pain Intensity: 6 Wound/Ulcer History When did wound start?: 10 plus years Mode of Arrival/ Mattress Stuffer: Personal vehicle and Family Assistive Device Used Today: Wheelchair Lives with:: Spouse Appetite Description: Within Normal Limits Smoking Status: Never smoker Constitutional Constitutional: Denies [...] Temp Pulse Resp BP O2 Del Method 98.2 F 67 18 120/58 L Room Air 10/05/23 10:43 10/05/23 10:43 10/05/23 10:43 10/05/23 10:43 10/05/23 10:43 Const General: cooperative and no acute distress Skin Wounds: wounds noted Neuro General: patient alert and patient awake Lower/Upper Extremity Exam Vascular Exam-Pulses Left Brachial: Pulse Assessment Method: NIBP Objective Meds/Allergies Home Medications citalopram 40 mg tablet (Celexa) 40 mg PO DAILY Depression 12/07/16 [History Confirmed 10/05/23] lisinopril 10 mg tablet 20 mg PO QAM HTN 12/07/16 [History Confirmed 10/05/23] amlodipine 10 mg tablet 10 mg PO QAM HTN 12/08/16 [History Confirmed 10/05/23] atenolol 100 mg tablet 100 mg PO DAILY HTN 11/03/17 [History Confirmed 10/05/23] glipizide 10 mg tablet 10 mg PO BID 06/30/18 [History Confirmed 10/05/23] sitagliptin phosphate 100 mg tablet (Januvia) 100 mg PO DAILY 07/29/21 [History Confirmed 10/05/23] oxybutynin chloride 15 mg tablet,extended release 24 hr 15 mg PO DAILY 02/07/23 [History Confirmed 10/05/23] fenofibrate nanocrystallized 145 mg tablet 145 mg PO QHS #0 tabs 02/13/23 [Rx Confirmed 10/05/23] oxybutynin chloride 5 mg tablet,extended release 24 hr 15 mg (3 x 5 mg) PO DAILY30 days #90 tabs 02/13/23 [Rx Confirmed 10/05/23] atorvastatin 40 mg tablet 40 mg PO DAILY 05/04/23 [History Confirmed 10/05/23] Allergies vancomycin Adverse Reaction (Severe, Verified 02/08/23 12:50) Shut kidneys down ferrous sulfate Adverse Reaction (Verified 02/07/23 15:14) Itching Wound/Ulcer Sacrum: Bed Appearance: Beefy Red, Paola and Yellow Percent of Wound Bed Granulated/Red: 90 Percent of Devitalized: 10 Length (cm): 2.6 Width (cm): 1.5 Depth (cm): 2.9 CM Sq: 3.900 Undermining Position: 360 (deepest at 9) Undermining Depth: 4.5 Surrounding Tissue Appearance: Hyperpigmented Surrounding Tissue Temp: Warm Drainage Amount: Large Drainage Description: Serosanguineous Drainage Odor: No Odor Right Ischium: Bed Appearance: Beefy Red, Bone Palpable, Paola and Yellow Percent of Wound Bed Granulated/Red: 90 Percent of Devitalized: 10 Length (cm): 5 Width (cm): 7 Depth (cm): 3.5 CM Sq: 35.000 Undermining Position: 8-11 (deepest at 9) Undermining Depth: 3.7 Surrounding Tissue Appearance: Hyperpigmented Surrounding Tissue Temp: Warm Drainage Amount: Large Drainage Description: Serosanguineous Left Ischium: Bed Appearance: Beefy Red, Paola and Yellow Percent of Wound Bed Granulated/Red: 90 Percent of Devitalized: 10 Length (cm): 0.5 Width (cm): 0.3 Depth (cm): 2.6 CM Sq: 0.150 Surrounding Tissue Appearance: Hyperpigmented Surrounding Tissue Temp: Warm Drainage Amount: Large Drainage Description: Serosanguineous Drainage Odor: No Odor Results Height: 5 ft 11 in Weight: 102.058 kg Body Mass Index: 31.4 Assessment/Plan Assessment/Plan (1) Stage IV pressure ulcer of sacral region: Code(s): L89.154 - Pressure ulcer of sacral region, stage 4 (2) Pressure injury of right ischium, stage 4: Code(s): L89.314 - Pressure ulcer of right buttock, stage 4 (3) Pressure injury of left ischium, stage 4: Code(s): L89.324 - Pressure ulcer of left buttock, stage 4 (4) Cauda equina spinal cord injury: Qualifiers: Encounter type: subsequent encounter Qualified Code(s): S34.3XXD - Injury of cauda equina, subsequent encounter Code(s): S34.3XXA - Injury of cauda equina, initial encounter (5) Diabetes mellitus due to underlying condition with diabetic neuropathy, withlong-term current use of insulin: Code(s): E08.40 - Diabetes mellitus due to underlying condition with diabetic neuropathy,unspecified; Z79.4 - retirement (current) use of insulin Plan Continue with current dressing changes and pressure relief. Okay to start on new medications prescribed by health technical writer. Patient and were told to monitor for evidence of bleeding from the wounds. Follow-up in about 1 month. See Instructions for Orders See Instructions for Orders See Wound Discharge Instructions for Orders: Dictated By: Cathy Brar MD DD/ 1115 Signed By: 10/05/23 1120 [facility]02-15-2024 Telephone encounter Note* Telephone Encounter - Sandhya Velasquez RN - 05/13/2023 3:00 PM EST Patient called to inquire about the antibiotic that was supposed to be sent after his 05/06 visit. Can you resend? Thank you! [facility] [id number] Miscellaneous Notes* Telephone Encounter - Sandhya Velasquez RN - 05/13/2023 3:00 PM EST Patient called to inquire about the antibiotic that was supposed to be sent after his 05/06 visit. Can you resend? Thank you! documented in this encounterNOMS [id number] History of Present illness Narrative* Jonathan Bha DPM - 05/06/2023 10:20 AM EST Patient: [...] unable to go to wound care at [facility] Patient also has Integra wound graft [...] or home health. Patient currently going at [facility] for decubitus ulcer Patient still awaits MRI approval as had to be resubmitted due to need for new x-ray on previous visit in awaits MRI at [facility] . Referral has been sent to [facility] wound center with attempt [...] region for possible osteomyelitis to fibula at [facility] ASSESSMENT 12 weeks s/p left 4th and 5th ray amputation with incision and drainage and partial closure with single lobe flap Type 2 diabetic with paraplegia 1. Ulcer of left ankle, with necrosis of bone (HCC) (CMS/HCC) 2. Diabetes mellitus due to underlying condition with diabetic polyneuropathy, unspecified whether care home insulin use (CMS/HCC) 3. Acute complete paraplegia [...] antibiotics Patient to follow up with [facility] for decubitus ulcer and instructions given to contact [facility] for follow-up.. Skin flap area of ulceration [...] and left legs Patient awaits MRI Jonathan Bah DPM documented in this encounterSaint Alexius [id number] Progress note Author Cathy Brar [facility] May 04, 2023 1:07pm Note Date/Time May 04, 2023 1 2:48pm [facility] [address] [place] [address] Wound Center Provider Note Signed Patient: Ganga Stinson MR#: [id number] : 1960 Acct:[id number] Age/Sex: 62 / M Copies to: MD [...] did wound start?: years Mode of Arrival/ Mattress Stuffer: Personal vehicle Assistive Device Used Today: Wheelchair [...] Itching Wound/Ulcer Right Lateral Ankle: Bed Appearance: Paola and Yellow Percent of Wound Bed Granulated/Red: [...] No Odor Right Medial Foot: Bed Appearance: Paola and Yellow Percent of Wound Bed Granulated/Red: 50 Percent of Devitalized: 50 Length (cm): 1.0 Width (cm): 1.0 Depth (cm): 0.3 CM Sq: 1.000 Surrounding Tissue Appearance: Hyperpigmented Surrounding Tissue Temp: Warm Drainage Amount: Moderate Drainage Description: Serosanguineous Drainage Odor: No Odor Sacrum: Bed Appearance: Beefy Red, Paola and Yellow Percent of Wound Bed Granulated/Red: 90 Percent of Devitalized: 10 Length (cm): 2.9 Width (cm): 1.5 Depth (cm): 2.5 CM Sq: 4.350 Undermining Position: 360 deepest at 9:00 Undermining Depth: 4.0 Surrounding Tissue Appearance: Hyperpigmented, Macerated and Callous Surrounding Tissue Temp: Warm Drainage Amount: Large Drainage Description: Serosanguineous Drainage Odor: No Odor Right Ischium: Bed Appearance: Beefy Red, Paola and Yellow Percent of Wound Bed Granulated/Red: 90 Percent of Devitalized: 10 Length (cm): 5.3 Width (cm): 7.5 Depth (cm): 4.0 CM Sq: 39.750 Surrounding Tissue Appearance: Paola, Macerated and Callous Surrounding Tissue Temp: Warm Drainage Amount: Large Drainage Description: Serosanguineous Drainage Odor: No Odor Left Ischium: Bed Appearance: Beefy Red and Paola Percent of Wound Bed Granulated/Red: 100 Percent [...] underlying condition with diabetic neuropathy,unspecified; 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 Document Revised: 12/04/2020 Document Reviewed: 12/04/2020 [employer] Patient Education 2022 [employer]. Follow Up Care 10/13/2022 11:18:02 With:ALLEN NAZARIO, Jovanny Christie, URL Address: [facility] [address] [place] [address]- [phone] When: Unknown Comments:sched cysto [facility] 03-31-2023 History of Present illness [...] Call light within reach. * Madelin Hopkins, PAPER SPOOLER - 06/26/2022 12:01 PM EDT Physical Therapy [...] Minutes 24 Madelin Hopkins PTA * Gabrielle Fracnois - 06/26/2022 12:00 PM EDT Occupational Therapy [...] 06/26/2022 9:35 AM EDT Patient transported to [facility] Room 334 via cart with RN. Bedside [...] Crockett RN - 06/26/2022 3:00 AM EDT Sled Maker at bedside for wound dressing change- pt incontinent of bowels. See flow sheet for details. * Panchito Crockett RN - 06/26/2022 1:30 AM EDT Pt incontinent of stool. Sled Maker at bedside for wound change dressing per order- see flow sheet for details. * Panchito Crockett RN - 06/26/2022 12:50 AM EDT Patient at bedside for reassessment and vitals- see flow sheet for details. Pt remains alert and oriented c4-calm and cooperative. GoLYTELY at bedside and proposal lead writer encourages patient to consume fluid- pt validates understanding. Patient currently denying pain and discomfort. Denying any additional needs, call light placed within reach, bed in lowest position. Sled Maker encourages patient to call out for assistance. Will continue to monitor. * Panchito Crockett RN - 06/26/2022 12:45 AM EDT Sled Maker at bedside- pt incontinent of stool- wound dressing changed per order. See flow sheet. * Panchito Crockett RN - 06/25/2022 10:05 PM EDT Sled Maker at bedside to for wound dressing change [...] bed. Supine BLE PROM exercises in all [id number]. Seated EOB AROM in LAQ 2x [...] never been a smoker. He saw a laboratory immunologist at [facility] 2 years ago in 2020. [...] himself. He follows with [facility] clinic at [facility]. Mr. Stinson also denied any current [...] both lower limbs (HCC) Paraplegia ([facility]) Type II or unspecified type diabetes mellitus without mention of complication, not stated as uncontrolled Unspecified sleep apnea CURRENT ALLERGIES: Vancomycin REVIEW OF SYSTEMS: 14 systems were reviewed. Pertinent positives and negatives as above, all else negative. Past Surgical History: Procedure Laterality Date APPENDECTOMY BACK SURGERY X2 OTHER SURGICAL HISTORY Right 04/10/2017 I&D rt foot/leg wounds TX I&D BELOW FASCIA FOOT 1 BURSAL SPACE Right 12/25/2016 FOOT DEBRIDEMENT INCISION AND DRAINAGE, 5TH DIGIT, PARTIAL AMB. PLACEMENT OF ANTIBOTIC BEADS performed by Gabriel Haile DPM at [facility] OR TX I&D BELOW FASCIA FOOT 1 BURSAL SPACE Right 04/10/2017 RIGHT ANKLE AND RIGHT HEEL DEBRIDEMENT INCISION AND DRAINAGE WITH CULTURES SENT performed by William Jimenez MD at [facility] OR TX OFFICE/OUTPT VISIT,PROCEDURE ONLY Right 06/14/2017 FOOT DEBRIDEMENT INCISION AND DRAINAGE-ANKLE INCLUDING BONE BIOPSY performed by Enrique Hussein [facility] OR TOE AMPUTATION Right 12/25/2016 right [...] injury of right ankle, stage 4 (HCC) 06/24/2022 Open wound of right ankle 12/30/2016 Mixed hyperlipidemia 04/25/2015 Hyponatremia 04/25/2015 Diabetes mellitus (HCC) 07/02/2011 Paraplegia ([facility]) 03/12/2011 MSSA (methicillin susceptible Staphylococcus aureus) infection 05/28/2017 Bacterial infection 02/17/2017 Enterococcus faecalis infection 12/28/2016 Skin ulcer of right heel with fat layer exposed (HCC) 09/02/2016 Skin ulcer of right 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 ([facility]) 04/25/2015 Decubitus ulcer of coccygeal region 07/19/2013 Cauda equina syndrome ([facility]) 12/09/2011 Open wound of knee, leg (except thigh), and ankle, complicated 02/25/2011 Acute kidney injury superimposed on CKD ([facility]) 06/23/2022 Abnormal EKG 06/23/2022 Neurogenic bladder 06/23/2022 Hyperkalemia 06/22/2022 Osteomyelitis of ankle or foot, right, acute ([facility]) Decubitus ulcer of coccygeal region, stage 4 ([facility]) 04/09/2017 Cellulitis 04/08/2017 Morbid obesity due to excess calories ([facility]) 01/01/2017 Acute on chronic renal failure ([facility]) 12/30/2016 Osteomyelitis of right foot ([facility]) Hypertension Depression PLAN: Pre-Op Clearance: Pre-Operative Risk assessment using 2014 ACC/AHA guidelines Emergent procedure No Active Cardiac Condition No (decompensated HF, Arrhythmia, [place] <3 weeks, severe valve disease) Risk Level [...] with the plan. Sincerely, Zoila Villafuerte PA-C [facility] [employer] Worker [address] [place], [place] [id number] , I believe that the risk of [...] HISTORY Right 04/10/2017 I&D rt foot/leg wounds TX I&D BELOW FASCIA FOOT 1 BURSAL SPACE Right 12/25/2016 FOOT DEBRIDEMENT INCISION AND DRAINAGE, 5TH DIGIT, PARTIAL AMB. PLACEMENT OF ANTIBOTIC BEADS performed by Gabriel Haile DPM at [facility] OR TX I&D BELOW FASCIA FOOT 1 BURSAL SPACE Right 04/10/2017 RIGHT ANKLE AND RIGHT HEEL DEBRIDEMENT INCISION AND DRAINAGE WITH CULTURES SENT performed by William Jimenez MD at [facility] OR TX OFFICE/OUTPT VISIT,PROCEDURE ONLY Right 06/14/2017 FOOT DEBRIDEMENT INCISION AND DRAINAGE-ANKLE INCLUDING BONE BIOPSY performed by Ro Husseint [facility] OR TOE AMPUTATION Right 12/25/2016 right fifth toe amputation with I&D, ATB beads per Dr. Haile [employer] allison filter Allergies Allergen Reactions Vancomycin States had [...] Daily, Matias Garcia MD, 1 tablet at 06/25/22723 amLODIPine (NORVASC) tablet 10 mg, 10 mg, Oral, Daily, Matias Garcia MD, 10 mg at 06/25/22722 atenolol (TENORMIN) tablet 100 mg, 100 mg, Oral, Daily, Matias Garcia MD, 100 mg at 06/25/22722 fenofibrate (TRIGLIDE) tablet 160 mg, 160 mg, Oral, Daily, Matias Garcia MD, 160 mg at 06/25/22723 citalopram (CELEXA) tablet 40 mg, 40 mg, Oral, Daily, Matias Garcia MD, 40 mg at 03/30/23 0723 clindamycin (CLEOCIN) 600 mg in dextrose 5 % 50 mL IVPB, 600 mg, IntraVENous, Q8H, Shelly Mondragon, TAILOR FITTER - CIGAR PACKER AND GRADER, Stopped at 06/25/22 0922 sodium hypochlorite (DAKINS) [...] Matias Garcia MD, 5,000 Units at 06/23/22 5393 PE: VSS, Afebrile, NAD, A&O x 3, Aloof Labs: as above RLE ; lateral ankle ; FT+ ulcerative wound , +PTB IMP: stage 4 ankle decubitus, appaarent bone involvement Stable for minor bedside procedure Tx: see procedure notes P: see orders / AVS Yakov Min DPM 06/25/2022 12:28 PM * Mena StringerLAURENT - 06/25/2022 11:55 AM EDT Occupational Therapy [...] MD 8:05 AM 06/25/2022 * Shelly Mondragon, TAILOR FITTER - CIGAR PACKER AND GRADER - 06/25/2022 7:34 AM EDT Images from [...] labs-Hgb 7.6 today Nutrition status: morbid obesity Recruiting Coordinator consult initiated Hospital Prophylaxis: DVT: Heparin Stress [...] Mondragon APRN - DOLLY , [facility] 06/25/2022, 7:34 AM IVETT Newman Associated attestation - Matias Garcia MD - 06/25/2022 7:34 PM EDT Images from the original note were not included. [address], [address] Attestation Patient: Ganga Evans Alloway Date of Admission: 06/22/2022 4:21 PM Hospital Day # 3 Date of Evaluation: 06/25/2022 I personally evaluated and examined the patient [id number] in conjunction with the PA/TOBACCO ACREAGE MEASURER and agree with the management and dispostition of the patient. Please see the PA/TOBACCO ACREAGE MEASURER's note for full details.My kohli findings are: [...] ASSESSMENT: Principal Problem: Hyperkalemia Active Problems: Paraplegia ([facility]) Open wound of right ankle Pressure injury of right ankle, stage 4 (HCC) Cauda equina syndrome (HCC) Decubitus ulcer of coccygeal region Acute kidney injury superimposed on CKD (HCC) Abnormal EKG Acute kidney injury (HCC) Resolved Problems: * No resolved hospital problems. * PLAN: I agree with the plan as outlined in the TOBACCO ACREAGE MEASURER/PA's note Disposition: Discharge plan is pending Please note that this chart was generated using voice recognition 1stdibson dictation software. Although every effort was made to ensure the accuracy of this automated research compliance specialist, some errors in research compliance specialist may have occurred. Matias Garcia MD 06/25/2022 [...] Samayoa RN - 06/25/2022 12:52 AM EDT Sled Maker at bedside at this time to perform [...] Samayoa RN - 06/24/2022 6:43 PM EDT Sled Maker at bedside at this time to perform initial shift assessment. Patient is lying in bed at thistime. Vital signs taken and assessment completed at this time. Patient is alert and oriented and has no complaints of pain of pain at this time. Patient denies any further needs at this time. Call light within reach, care ongoing. * Martita Tam, PAPER SPOOLER - 06/24/2022 4:57 PM EDT Physical Therapy [...] never been a smoker. He saw a laboratory immunologist at [facility] 2 years ago in 2020. [...] himself. He follows with wound clinic at [facility]. Mr. Stinson also denied any current [...] both lower limbs (HCC) Paraplegia ([facility]) Type II or unspecified type diabetes mellitus without mention of complication, not stated as uncontrolled Unspecified sleep apnea CURRENT ALLERGIES: Vancomycin REVIEW OF SYSTEMS: 14 systems were reviewed. Pertinent positives and negatives as above, all else negative. Past Surgical History: Procedure Laterality Date APPENDECTOMY BACK SURGERY X2 OTHER SURGICAL HISTORY Right 04/10/2017 I&D rt foot/leg wounds TX I&D BELOW FASCIA FOOT 1 BURSAL SPACE Right 12/25/2016 FOOT DEBRIDEMENT INCISION AND DRAINAGE, 5TH DIGIT, PARTIAL AMB. PLACEMENT OF ANTIBOTIC BEADS performed by Gabriel Haile DPM at [facility] OR TX I&D BELOW FASCIA FOOT 1 BURSAL SPACE Right 04/10/2017 RIGHT ANKLE AND RIGHT HEEL DEBRIDEMENT INCISION AND DRAINAGE WITH CULTURES SENT performed by William Jimenez MD at [facility] OR TX OFFICE/OUTPT VISIT,PROCEDURE ONLY Right 06/14/2017 FOOT DEBRIDEMENT INCISION AND DRAINAGE-ANKLE INCLUDING BONE BIOPSY performed by Ro Husseint [facility] OR TOE AMPUTATION Right 12/25/2016 right fifth toe amputation with I&D, ATB beads per Dr. Haile [employer]TER [employer]AC[employer] allison filter Social History: Social History Tobacco Use [...] 04/25/2015 Hyponatremia 04/25/2015 Diabetes mellitus ([facility]) 07/02/2011 Paraplegia ([facility]) 03/12/2011 MSSA (methicillin susceptible Staphylococcus aureus) infection 05/28/2017 Bacterial infection 02/17/2017 Enterococcus faecalis infection 12/28/2016 Skin ulcer of right heel with fat layer exposed ([facility]) 09/02/2016 Skin ulcer of right 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 ([facility]) 04/25/2015 Decubitus ulcer of coccygeal region 07/19/2013 Cauda equina syndrome ([facility]) 12/09/2011 Open wound of knee, leg (except thigh), and ankle, complicated 02/25/2011 Acute kidney injury superimposed on CKD ([facility]) 06/23/2022 Abnormal EKG 06/23/2022 Neurogenic bladder 06/23/2022 Hyperkalemia 06/22/2022 Osteomyelitis of ankle or foot, right, acute ([facility]) Decubitus ulcer of coccygeal region, stage 4 ([facility]) 04/09/2017 Cellulitis 04/08/2017 Morbid obesity due to excess calories ([facility]) 01/01/2017 Acute on chronic renal failure ([facility]) 12/30/2016 Osteomyelitis of right foot ([facility]) Hypertension Depression PLAN: Abnormal EKG [...] with the plan. Sincerely, Zoila Villafuerte PA-C [facility] [employer] Worker [address] [place] [id number] , I believe that the risk of [...] Bed Mobility Training: (positioned on side for GI Track to complete ultrasound at end of session) [...] prep on 06/25/2022 6pm KATERINA ATKINS MD [facility] Gastroenterology * Shelly Mondragon APRN - CIGAR PACKER AND GRADER - 06/24/2022 7:34 AM EDT Images from [...] IRon Monitor labs Nutrition status: morbid obesity Recruiting Coordinator consult initiated Hospital Prophylaxis: DVT: Heparin Stress Ulcer: na Disposition: Shared decision making: All test results, treatment options and disposition options were discussed with the patient today Social determinants of health that may impact management: none Code status: Full Code Disposition: Discharge plan is home [facility] Advanced Care Planning documentation: [x] [...] - DOLLY , MARIFER MCCABE-C Hospitalist Medicine 06/24/2022, 7:34 AM Blood Transfusion [...] components. IVETT Newman Associated attestation - Matias Garcia MD - 06/24/2022 9:40 PM EDT Images from the original note were not included. [address], [address] Attestation Patient: Ganga Evans Alloway Date of Admission: 06/22/2022 4:21 PM Hospital Day # 2 Date of Evaluation: 06/24/2022 I personally evaluated and examined the patient [id number] in conjunction with the PA/TOBACCO ACREAGE MEASURER and agree with the management and dispostition of the patient. Please see the PA/TOBACCO ACREAGE MEASURER's note for full details.My kohli findings are: [...] with the plan as outlined in the TOBACCO ACREAGE MEASURER/PA's note Disposition: Discharge plan is pending, GI, Cardiology, Urology consultations, Transfuse if pRBC <7, wound care to the affected area and monitor electrolytes. Please note that this chart was generated using voice recognition 1stdibson dictation software. Although every effort was made to ensure the accuracy of this automated research compliance specialist, some errors in research compliance specialist may have occurred. Matias Garcia MD 06/24/2022 9:39 PM * Geneva Samayoa RN - 06/24/2022 2:46 AM EDT Spoke with Dr. Garcia and informed him of critical lab levels. No new orders. * Geneva Samayoa RN - 06/24/2022 2:15 AM EDT Sled Maker at bedside at this time to perform [...] this time and patient transferred over to [place] bed. * Geneva Samayoa RN - 06/23/2022 9:00 PM EDT Sled Maker at bedside at this time to perform initial shift assessment. Patient is lying in bed at thistime. Vital signs taken and assessment completed at this time. Patient is alert and oriented and has no complaints of pain at this time. Patient denies any further needs at this time. Call light within reach, care ongoing. * Eloise Lopez, PAPER SPOOLER - 06/23/2022 4:35 PM EDT Physical Therapy [...] Ambulation Assistance: Non-ambulatory Transfer Assistance: Independent Active Technology And Engineering Teacher: No Additional Comments: Pt. with hx of [...] Ambulation Assistance: Non-ambulatory Transfer Assistance: Independent Active Technology And Engineering Teacher: No Additional Comments: Pt. with hx of [...] In 941 Time Out 0958 Minutes 16 RENEA Grewalally signed by Matias Garcia MD at 06/23/2022 12:42 PM EDT * Anya Christensen RD, LD - 06/23/2022 [...] to Severe Extremities (+ 2 pitting BLE) Scene And Lighting Design Lecturer Strength: Not Performed Nutrition Assessment: Altered nutrition [...] Anthropometric Measures: Height: 5' 11 (180.3 cm) Hallock Body Weight (IBW): 172 lbs (78 kg) [...] Used for Energy Requirements: Current Energy (kcal/day): 5805-5072 (20-23/kg) Weight Used for Protein Requirements: Hallock Protein (g/day): 109-133g (1.4-1.7g/kg) Method Used for [...] Nutrition Supplement [address], [place] Contact: [phone] * Panchito Crockett RN - 06/23/2022 1:00 AM EDT Sled Maker at bedside for reassessment-see flow sheet for details. Patient remains alert and oriented x4-calm and cooperative. Patient continues to deny pain and discomfort. Incontinence and stewart care provided. Denying any additional needs, call light placed within reach, bed in lowest position and alarm engaged to promote patient safety. Will continue to monitor. * Panchito Crockett RN - 06/23/2022 12:00 AM EDT Sled Maker attempted to place rowe catheter at this time- unable to advance 16 FR catheter. Rn Substitute Crossing Guard notified and will attempt- will continue to monitor. Patient reports no pain or discomfort. * Panchito Crockett RN - 06/22/2022 11:12 PM EDT Sled Maker phoned Dr. Garcia at this informing physician [...] continue to monitor. documented [facility] [employer] Phone: [phone]) 936-922203-31-2023 Hospital Discharge instructions* Discharge Instructions* Fabby Felder [...] most local grocery stores, pharmacies, and chain [employer]-stores. If you have any questions about your diet or nutrition, call the hospital and ask for the dietitian. Regular documented in this encounterB[facility] [employer] Phone: [phone] 167-669003-07-2023 Progress note Author Cathy Brar [facility] June 02, 2022 12:14pm Note Date/Time June 02, 2022 12:1 4pm [facility] [address] [place] [address] Wound Center Provider Note Signed Patient: Ganga Stinson MR#: [id number] : 1960 Acct:[id number] Age/Sex: 61 / M Copies to: MD Fidel Whitmore MD~ HPI Date of Visit Date of Visit: Date of Service: 06/02/2022 Time of Service: 12:01 Narrative HPI: Patient is being followed for his chronic bilateral ischial, sacral and right foot ulcers. His is doing his dressing changes. Patient has been having some right hip pain and underwent a CT scan in [place] on 03/14/2022. This showed slight deepening of [...] Constitutional: Denies fever(s) Integumentary/Breasts Skin/Breast: Reports wounds [facility] Medical History (Updated 06/02/22 @ [...] Sacrum: Bed Appearance: Beefy Red, Bone Palpable, Paola and Yellow Percent of Wound Bed Granulated/Red: 90 Percent of Devitalized: 10 Length (cm): 3.5 Width (cm): 1.8 Depth (cm): 2 CM Sq: 6.300 Undermining Position: 360 Undermining Depth: 3 Surrounding Tissue Appearance: Paola Surrounding Tissue Temp: Warm Drainage Amount: Large Drainage Description: Serosanguineous Drainage Odor: No Odor Left Ischium: Bed Appearance: Beefy Red, Bone Palpable, Paola and Yellow Percent of Wound Bed Granulated/Red: 90 Percent of Devitalized: 10 Length (cm): 7 Width (cm): 6 Depth (cm): 5.5 CM Sq: 42.000 Surrounding Tissue Appearance: Paola Surrounding Tissue Temp: Warm Drainage Amount: Large Drainage Description: Serosanguineous Drainage Odor: No Odor Right Ischium: Bed Appearance: Beefy Red, Bone Palpable, Paola and Yellow Percent of Wound Bed Granulated/Red: 90 Percent of Devitalized: 10 Length (cm): 0.7 Width (cm): 1 Depth (cm): 4 CM Sq: 0.700 Surrounding Tissue Appearance: Paola Surrounding Tissue Temp: Warm Drainage Amount: Moderate Drainage Description: Serosanguineous Drainage Odor: No Odor Left Ankle: Bed Appearance: Brown, Paola and Yellow Percent of Wound Bed Granulated/Red: 5 Percent of Devitalized: 95 Length (cm): 3.5 Width (cm): 2.5 Depth (cm): 0.1 CM Sq: 8.750 Surrounding Tissue Appearance: Paola Surrounding Tissue Temp: Warm Drainage Amount: Moderate Drainage Description: Serosanguineous Drainage Odor: No Odor Medial Ankle: Bed Appearance: Brown, Paola and Yellow Percent of Wound Bed Granulated/Red: 50 Percent of Devitalized: 50 Length (cm): 3.5 Width (cm): 4 Depth (cm): 0.1 CM Sq: 14.000 Surrounding Tissue Appearance: Paola Surrounding Tissue Temp: Warm Drainage Amount: Moderate Drainage Description: Serosanguineous Drainage Odor: No Odor Medial Foot: Bed Appearance: Black Dry, Brown, Paola and Hardware Percent of Wound Bed Granulated/Red: 5 Percent of Devitalized: 95 Length (cm): 2 Width (cm): 1.2 Depth (cm): 0.1 CM Sq: 2.400 Surrounding Tissue Appearance: Paola Surrounding Tissue Temp: Warm Drainage Amount: Moderate [...] Diabetes mellitus type: type 2 Diabetes mellitus terminal makeup operator insulin use:with terminal makeup operator use Diabetes mellitus complication status: with skin complications Diabetes mellitus complication detail: with other skin ulcer Qualified Code(s): E11.622 - Type 2 diabetes mellitus with other skin ulcer; Z79.4 - retirement (current) use of insulin Code(s): E11.9 - [...] MD Cathy Brar> 06/02/22 12[address] [facility] Work Phone: 1(206) 154-979812-06-2022 Progress note Author Cathy Brar [facility] March 03, 2022 12:06pm Note Date/Time March 03, 2022 1 2:06pm [facility] [address] [place] [address] Wound Center Provider Note Signed Patient: Ganga Stinson MR#: [id number] : 1960 Acct:[id number] Age/Sex: 61 / M Copies to: MD [...] Ischium: Bed Appearance: Beefy Red, Bone Palpable, Paola and Yellow Percent of Wound Bed Granulated/Red: [...] Bed Appearance: Beefy Red, Bone Palpable, Devitalized, Paola, Yellow and Rolled Edges Percent of Wound Bed Granulated/Red: 50 Percent of Devitalized: 50 Length (cm): 0.7 Width (cm): 0.8 Depth (cm): 4.0 CM Sq: 0.560 Undermining Position: 0 Undermining Depth: 0 Surrounding Tissue Appearance: Macerated and Rolled Edges Surrounding Tissue Temp: Warm Drainage Amount: Moderate Drainage Description: Serosanguineous Drainage Odor: No Odor Lidocaine Applied Topically: 2% Jelly Right Buttock: Bed Appearance: Devitalized, Paola and Yellow Percent of Wound Bed Granulated/Red: 100 Percent of Devitalized: 0 Length (cm): 0 Width (cm): 0 Depth (cm): 0 CM Sq: 0.000 Surrounding Tissue Appearance: Hyperpigmented Surrounding Tissue Temp: Warm Drainage Amount: None Drainage Description: Serosanguineous Drainage Odor: No Odor Lidocaine Applied Topically: 2% Jelly Right Lower Medial Leg: Bed Appearance: Paola and Yellow Percent of Wound Bed Granulated/Red: [...] Diabetes mellitus type: type 2 Diabetes mellitus terminal makeup operator insulin use:with care home use Diabetes mellitus complication status: with skin complications Diabetes mellitus complication detail: with other skin ulcer Qualified Code(s): E11.622 - Type 2 diabetes mellitus with other skin ulcer; Z79.4 - retirement (current) use of insulin Code(s): E11.9 - [...] MD Cathy Brar> 03/03/22 [address] [facility] Work Phone: 1(685) 199-196212-02-2022 NotePROCEDURE: XR HIP RT 2 3V W [...] Electronically authenticated by: KHADAR MEDINA Date: 2022-02-27 07:17[facility]11-01-2022 Progress note Author Cathy Brar [facility] January 27, 2022 12:11pm Note Date/Time January 27, 2022 1 2:11pm [facility] [address] [place] [address] Wound Center Provider Note Signed Patient: Ganga Stinson MR#: [id number] : 1960 Acct:[id number] Age/Sex: 61 / M Copies to: MD [...] 360 Undermining Depth: 3.5 Surrounding Tissue Appearance: Paola and Rolled Edges Surrounding Tissue Temp: Warm Drainage Amount: Large Drainage Description: Serosanguineous Drainage Odor: No Odor Lidocaine Applied Topically: 2% Jelly Right Heel: Bed Appearance: Beefy Red, Paola and Yellow Percent of Wound Bed Granulated/Red: 50 Percent of Devitalized: 50 Length (cm): 1.0 Width (cm): 1.4 Depth (cm): 0.1 CM Sq: 1.400 Surrounding Tissue Appearance: Peeling and Dryness Surrounding Tissue Temp: Warm Drainage Amount: Small Drainage Description: Serosanguineous Drainage Odor: No Odor Lidocaine Applied Topically: 2% Jelly Right Ischium: Bed Appearance: Beefy Red, Bone Palpable, Paola and Yellow Percent of Wound Bed Granulated/Red: [...] Bed Appearance: Beefy Red, Bone Palpable, Devitalized, Paola, Yellow and Rolled Edges Percent of Wound Bed Granulated/Red: 50 Percent of Devitalized: 50 Length (cm): 1.5 Width (cm): 1.0 Depth (cm): 4.0 CM Sq: 1.500 Undermining Position: 10-3:00 Undermining Depth: 3.5 Surrounding Tissue Appearance: Macerated and Rolled Edges Surrounding Tissue Temp: Warm Drainage Amount: Moderate Drainage Description: Serosanguineous Drainage Odor: No Odor Lidocaine Applied Topically: 2% Jelly Right Buttock: Bed Appearance: Devitalized, Paola and Yellow Percent of Wound Bed Granulated/Red: 100 Percent of Devitalized: 0 Length (cm): 0 Width (cm): 0 Depth (cm): 0 CM Sq: 0.000 Surrounding Tissue Appearance: Paola Surrounding Tissue Temp: Warm Drainage Amount: None Drainage Description: Serosanguineous Drainage Odor: No Odor Lidocaine Applied Topically: 2% Jelly Right Lower Medial Leg: Bed Appearance: Paola and Yellow Percent of Wound Bed Granulated/Red: [...] Diabetes mellitus type: type 2 Diabetes mellitus care home insulin use:with care home use Diabetes mellitus complication status: with skin complications Diabetes mellitus complication detail: with other skin ulcer Qualified Code(s): E11.622 - Type 2 diabetes mellitus with other skin ulcer; 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 Code(s): E11.9 - [...] signed by MD Cathy Brar> 01/27/22 12[address] [facility] Work Phone: 1(845) 482-522909-27-2022 Progress note Author Cathy Brar [facility] December 23, 2021 12:32pm Note Date/Time December 23, 2021 12:32pm [facility] [address] [place] [address] Wound Center Provider Note Signed Patient: Ganga Stinson MR#: [id number] : 1960 Acct:[id number] Age/Sex: 61 / M Copies to: MD [...] Bed Appearance: Beefy Red, Bone Palpable, Devitalized, Paola and Yellow Percent of Wound Bed Granulated/Red: 95 Percent of Devitalized: 5 Length (cm): 3.2 Width (cm): 2 Depth (cm): 2.5 CM Sq: 6.400 Undermining Position: 10-4:00 Undermining Depth: 5 Surrounding Tissue Appearance: Paola and Macerated Surrounding Tissue Temp: Warm Drainage Amount: Large Drainage Description: Serosanguineous Drainage Odor: No Odor Lidocaine Applied Topically: 2% Jelly Right Heel: Bed Appearance: Beefy Red, Devitalized, Epithelial Tissue or Bridge, Paola and Yellow Percent of Wound Bed Granulated/Red: 90 Percent of Devitalized: 10 Length (cm): 3 Width (cm): 8 Depth (cm): 0.1 CM Sq: 24.000 Surrounding Tissue Appearance: Peeling and Dryness Surrounding Tissue Temp: Warm Drainage Amount: Large Drainage Description: Serosanguineous Drainage Odor: No Odor Lidocaine Applied Topically: 2% Jelly Right Ischium: Bed Appearance: Beefy Red, Bone Palpable, Devitalized, Epithelial Tissue or Bridge, Paola and Yellow Percent of Wound Bed Granulated/Red: 95 Percent of Devitalized: 5 Length (cm): 5 Width (cm): 5 Depth (cm): 5 CM Sq: 25.000 Undermining Position: 12-6:00 Undermining Depth: 1 Surrounding Tissue Appearance: Macerated Surrounding Tissue Temp: Warm Drainage Amount: Large Drainage Description: Serosanguineous Drainage Odor: No Odor Lidocaine Applied Topically: 2% Jelly Left Ischium: Bed Appearance: Beefy Red, Bone Palpable, Devitalized, Paola and Yellow Percent of Wound Bed Granulated/Red: 95 Percent of Devitalized: 5 Length (cm): 1.6 Width (cm): 1.6 Depth (cm): 3.5 CM Sq: 2.560 Undermining Position: 10-3:00 Undermining Depth: 3.5 Surrounding Tissue Appearance: Macerated Surrounding Tissue Temp: Warm Drainage Amount: Moderate Drainage Description: Serosanguineous Drainage Odor: No Odor Lidocaine Applied Topically: 2% Jelly Right Buttock: Bed Appearance: Devitalized, Paola and Yellow Percent of Wound Bed Granulated/Red: 95 Percent of Devitalized: 5 Length (cm): 1.5 Width (cm): 0.5 Depth (cm): 0.1 CM Sq: 0.750 Surrounding Tissue Appearance: Paola and Callous Surrounding Tissue Temp: Warm Drainage Amount: Small Drainage Description: Serosanguineous Drainage Odor: No Odor Lidocaine Applied Topically: 2% Jelly Right Lower Lateral Leg: Bed Appearance: Beefy Red, Devitalized, Paola and Yellow Percent of Wound Bed Granulated/Red: 10 Percent of Devitalized: 90 Length (cm): 0 Width (cm): 0 Depth (cm): 0 CM Sq: 0.000 Surrounding Tissue Appearance: Hyperpigmented Surrounding Tissue Temp: Warm Drainage Amount: None Drainage Description: Serosanguineous Drainage Odor: No Odor Lidocaine Applied Topically: 2% Jelly Right Lower Medial Leg: Bed Appearance: Devitalized, Epithelial Tissue or Bridge, Paola and Yellow Percent of Wound Bed Granulated/Red: [...] Diabetes mellitus type: type 2 Diabetes mellitus terminal makeup operator insulin use:with care home use Diabetes mellitus complication status: with skin complications Diabetes mellitus complication detail: with other skin ulcer Qualified Code(s): E11.622 - Type 2 diabetes mellitus with other skin ulcer; Z79.4 - retirement (current) use of insulin Code(s): E11.9 - [...] Orders: Dictated By: Cathy Brar MD DD/ 26 Signed By: <Electronically signed by MD Cathy Brar> 12/23/21 1232 [facility] Work Phone: 1(794) 887-780308-23-2022 Progress note Author Cathy Brar [facility] November 18, 2021 11:55am Note Date/Time November 18, 2021 11 :55am [facility] [address] [place] [address] Wound Center Provider Note Signed Patient: Ganga Stinson MR#: [id number] : 1960 Acct:[id number] Age/Sex: 61 / M Copies to: MD [...] units subcut BID DM 09/11/17 [History Confirmed 10/21/21] lisinopril 10 mg tablet [...] Bed Appearance: Beefy Red, Bone Palpable, Devitalized, Paola and Yellow Percent of Wound Bed Granulated/Red: 75 Percent of Devitalized: 25 Length (cm): 3.5 Width (cm): 2.0 Depth (cm): 2.5 CM Sq: 7.000 Undermining Position: 360 (deepest at 3) Undermining Depth: 3.5 Surrounding Tissue Appearance: Hyperpigmented Surrounding Tissue Temp: Warm Drainage Amount: Large Drainage Description: Serosanguineous Drainage Odor: No Odor Lidocaine Applied Topically: 2% Jelly Right Heel: Bed Appearance: Devitalized, Paola and Yellow Percent of Wound Bed Granulated/Red: 1 Percent of Devitalized: 99 Length (cm): 1.6 Width (cm): 2.3 Depth (cm): 0.1 CM Sq: 3.680 Surrounding Tissue Appearance: Hyperpigmented Surrounding Tissue Temp: Warm Drainage Amount: Large Drainage Description: Serosanguineous Drainage Odor: No Odor Lidocaine Applied Topically: 2% Jelly Right Ischium: Bed Appearance: Beefy Red, Bone Palpable, Devitalized, Epithelial Tissue or Bridge, Paola and Yellow Percent of Wound Bed Granulated/Red: [...] Bed Appearance: Beefy Red, Bone Palpable, Devitalized, Paola and Yellow Percent of Wound Bed Granulated/Red: 90 Percent of Devitalized: 10 Length (cm): 2.0 Width (cm): 2.0 Depth (cm): 3.5 CM Sq: 4.000 Undermining Position: 9-11:00 Undermining Depth: 4.0 Surrounding Tissue Appearance: Hyperpigmented Surrounding Tissue Temp: Warm Drainage Amount: Moderate Drainage Description: Serosanguineous Drainage Odor: No Odor Lidocaine Applied Topically: 2% Jelly Right Buttock: Bed Appearance: Beefy Red, Devitalized, Paola and Yellow Percent of Wound Bed Granulated/Red: 95 Percent of Devitalized: 5 Length (cm): 2.4 Width (cm): 1.0 Depth (cm): 0.1 CM Sq: 2.400 Surrounding Tissue Appearance: Hyperpigmented Surrounding Tissue Temp: Warm Drainage Amount: Moderate Drainage Description: Serosanguineous Drainage Odor: No Odor Lidocaine Applied Topically: 2% Jelly Right Lower Lateral Leg: Bed Appearance: Beefy Red, Devitalized, Paola and Yellow Percent of Wound Bed Granulated/Red: 10 Percent of Devitalized: 90 Length (cm): 1.3 Width (cm): 1.4 Depth (cm): 0.1 CM Sq: 1.820 Surrounding Tissue Appearance: Hyperpigmented Surrounding Tissue Temp: Warm Drainage Amount: Moderate Drainage Description: Serosanguineous Drainage Odor: No Odor Lidocaine Applied Topically: 2% Jelly Right Lower Medial Leg: Bed Appearance: Black Dry, Devitalized, Epithelial Tissue or Bridge, Paola and Yellow Percent of Wound Bed Granulated/Red: [...] Diabetes mellitus type: type 2 Diabetes mellitus terminal makeup operator insulin use:with terminal makeup operator use Diabetes mellitus complication status: with skin complications Diabetes mellitus complication detail: with other skin ulcer Qualified Code(s): E11.622 - Type 2 diabetes mellitus with other skin ulcer; 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 Continue with pressure-relief techniques. Patient follow-up in about 4 weeks. See Instructions for Orders See Instructions for Orders See Wound Discharge Instructions for Orders: Patient may require serial debridement to remove devitalized tissue and encourage granulation. Dictated By: Cathy Brar MD DD/ 1152 Signed By: <Electronically signed by MD Cathy Brar> 11/18/21 1152 [facility] Work Phone: [phone] 925-405807-26-2022 Progress note Author Cathy Brar [facility] October 21, 2021 11:44am Note Date/Time October 21, 2021 11:4 4am [facility] [address] [place] [address] Wound Center Provider Note Signed Patient: Ganga Stinson MR#: [id number] : 1960 Acct:[id number] Age/Sex: 61 / M Copies to: MD [...] Bed Appearance: Beefy Red, Bone Palpable, Devitalized, Paola and Yellow Percent of Wound Bed Granulated/Red: 75 Percent of Devitalized: 25 Length (cm): 4.2 Width (cm): 3.0 Depth (cm): 3.0 CM Sq: 12.600 Undermining Position: 360 (deepest at 3) Undermining Depth: 3.5 Surrounding Tissue Appearance: Hyperpigmented Surrounding Tissue Temp: Warm Drainage Amount: Large Drainage Description: Serosanguineous Drainage Odor: No Odor Lidocaine Applied Topically: 2% Jelly Right Heel: Bed Appearance: Devitalized, Paola and Yellow Percent of Wound Bed Granulated/Red: 50 Percent of Devitalized: 50 Length (cm): 2.3 Width (cm): 3.2 Depth (cm): 0.1 CM Sq: 7.360 Surrounding Tissue Appearance: Hyperpigmented Surrounding Tissue Temp: Warm Drainage Amount: Large Drainage Description: Serosanguineous Drainage Odor: No Odor Lidocaine Applied Topically: 2% Jelly Right Ischium: Bed Appearance: Beefy Red, Bone Palpable, Devitalized, Epithelial Tissue or Bridge, Paola and Yellow Percent of Wound Bed Granulated/Red: [...] Bed Appearance: Beefy Red, Bone Palpable, Devitalized, Paola and Yellow Percent of Wound Bed Granulated/Red: 90 Percent of Devitalized: 10 Length (cm): 3.0 Width (cm): 1.6 Depth (cm): 4.5 CM Sq: 4.800 Undermining Position: 9-11:00 Undermining Depth: 1.0 Surrounding Tissue Appearance: Hyperpigmented Surrounding Tissue Temp: Warm Drainage Amount: Moderate Drainage Description: Serosanguineous Drainage Odor: No Odor Lidocaine Applied Topically: 2% Jelly Right Buttock: Bed Appearance: Beefy Red, Devitalized, Paola and Yellow Percent of Wound Bed Granulated/Red: 80 Percent of Devitalized: 20 Length (cm): 2.2 Width (cm): 1.1 Depth (cm): 0.1 CM Sq: 2.420 Surrounding Tissue Appearance: Hyperpigmented Surrounding Tissue Temp: Warm Drainage Amount: Moderate Drainage Description: Serosanguineous Drainage Odor: No Odor Lidocaine Applied Topically: 2% Jelly Right Lower Lateral Leg: Bed Appearance: Beefy Red, Devitalized, Paola and Yellow Percent of Wound Bed Granulated/Red: 10 Percent of Devitalized: 90 Length (cm): 1.3 Width (cm): 1.4 Depth (cm): 0.1 CM Sq: 1.820 Surrounding Tissue Appearance: Hyperpigmented Surrounding Tissue Temp: Warm Drainage Amount: Moderate Drainage Description: Serosanguineous Drainage Odor: No Odor Lidocaine Applied Topically: 2% Jelly Right Lower Medial Leg: Bed Appearance: Black Dry, Devitalized, Paola and Yellow Percent of Wound Bed Granulated/Red: 80 Percent of Devitalized: 20 Length (cm): 1.6 Width (cm): 2.5 Depth (cm): 0.1 CM Sq: 4.000 Surrounding Tissue Appearance: Hyperpigmented Surrounding Tissue Temp: Warm Drainage Amount: Moderate Drainage Description: Serosanguineous Drainage Odor: No Odor Lidocaine Applied Topically: 2% Jelly Right Foot: Bed Appearance: Beefy Red, Devitalized, Epithelial Tissue or Bridge, Paola and Yellow Percent of Wound Bed Granulated/Red: [...] Diabetes mellitus type: type 2 Diabetes mellitus care home insulin use:with terminal makeup operator use Diabetes mellitus complication status: with skin complications Diabetes mellitus complication detail: with other skin ulcer Qualified Code(s): E11.622 - Type 2 diabetes mellitus with other skin ulcer; Z79.4 - retirement (current) use of insulin Code(s): E11.9 - [...] granulation. Dictated By: Cathy Brar MD DD/ 113 Signed By: <Electronically signed by MD Cathy Brar> 10/21/21 1144 [facility] Work Phone: 1(662) 349-815806-21-2022 Progress note Author Cathy Brar [facility] September 16, 2021 11:55am Note Date/Time September 16, 2021 11:5 1am [facility] [address] [place] [address] Wound Center Provider Note Signed Patient: Ganga Stinson MR#: [id number] : 1960 Acct:[id number] Age/Sex: 61 / M Copies to: MD [...] Wound/Ulcer Sacrum: Bed Appearance: Bone Palpable, Devitalized, Paola and Yellow Percent of Wound Bed Granulated/Red: [...] Heel: Bed Appearance: Black Moist, Brown, Devitalized, Paola and Yellow Percent of Wound Bed Granulated/Red: 95 Percent of Devitalized: 5 Length (cm): 3.4 Width (cm): 5.1 Depth (cm): 0.1 CM Sq: 17.340 Surrounding Tissue Appearance: Hyperpigmented Surrounding Tissue Temp: Warm Drainage Amount: Large Drainage Description: Serosanguineous Drainage Odor: No Odor Lidocaine Applied Topically: 2% Jelly Right Ischium: Bed Appearance: Beefy Red, Devitalized, Epithelial Tissue or Bridge, Paola and Yellow Percent of Wound Bed Granulated/Red: 90 Percent of Devitalized: 10 Length (cm): 5.1 Width (cm): 5.5 Depth (cm): 4 CM Sq: 28.050 Undermining Position: 1-3:00 Undermining Depth: 1.5 Surrounding Tissue Appearance: Hyperpigmented Surrounding Tissue Temp: Warm Drainage Amount: Large Drainage Description: Serosanguineous Drainage Odor: No Odor Lidocaine Applied Topically: 2% Jelly Left Ischium: Bed Appearance: Beefy Red, Bone Palpable, Devitalized, Paola and Yellow Percent of Wound Bed Granulated/Red: 90 Percent of Devitalized: 10 Length (cm): 3.9 Width (cm): 1.8 Depth (cm): 5 CM Sq: 7.020 Undermining Position: 9-11:00 Undermining Depth: 2.2 Surrounding Tissue Appearance: Hyperpigmented Surrounding Tissue Temp: Warm Drainage Amount: Moderate Drainage Description: Serosanguineous Drainage Odor: No Odor Lidocaine Applied Topically: 2% Jelly Right Buttock: Bed Appearance: Beefy Red, Devitalized, Paola and Yellow Percent of Wound Bed Granulated/Red: 99 Percent of Devitalized: 1 Length (cm): 2.3 Width (cm): 0.9 Depth (cm): 0.2 CM Sq: 2.070 Surrounding Tissue Appearance: Hyperpigmented Surrounding Tissue Temp: Warm Drainage Amount: Moderate Drainage Description: Serosanguineous Drainage Odor: No Odor Lidocaine Applied Topically: 2% Jelly Right Lower Lateral Leg: Bed Appearance: Beefy Red, Devitalized, Paola and Yellow Percent of Wound Bed Granulated/Red: 20 Percent of Devitalized: 80 Length (cm): 3.8 Width (cm): 2.3 Depth (cm): 0.1 CM Sq: 8.740 Surrounding Tissue Appearance: Hyperpigmented Surrounding Tissue Temp: Warm Drainage Amount: Moderate Drainage Description: Serosanguineous Drainage Odor: No Odor Lidocaine Applied Topically: 2% Jelly Right Lower Medial Leg: Bed Appearance: Black Dry, Devitalized, Paola and Yellow Percent of Wound Bed Granulated/Red: 75 Percent of Devitalized: 25 Length (cm): 2.5 Width (cm): 2.7 Depth (cm): 0.2 CM Sq: 6.750 Surrounding Tissue Appearance: Hyperpigmented Surrounding Tissue Temp: Warm Drainage Amount: Moderate Drainage Description: Serosanguineous Drainage Odor: No Odor Lidocaine Applied Topically: 2% Jelly Right Foot: Bed Appearance: Beefy Red, Devitalized, Epithelial Tissue or Bridge, Paola and Yellow Percent of Wound Bed Granulated/Red: [...] Diabetes mellitus type: type 2 Diabetes mellitus care home insulin use:with care home use Diabetes mellitus complication status: with skin complications Diabetes mellitus complication detail: with other skin ulcer Qualified Code(s): E11.622 - Type 2 diabetes mellitus with other skin ulcer; Z79.4 - retirement (current) use of insulin Code(s): E11.9 - [...] signed by MD Cathy Brar> 09/16/21 1155 [facility] Work Phone: 1(753) 441-978005-03-2022 Progress note Author Cathy Brar [facility] July 29, 2021 12:33pm Note Date/Time July 29, 2021 12:33p m [facility] [address] [place] [address] Wound Center Provider Note Signed Patient: Ganga Stinson MR#: [id number] : 1960 Acct:[id number] Age/Sex: 61 / M Copies to: MD [...] down Wound/Ulcer Sacrum: Bed Appearance: Bone Palpable, Paola and Yellow Percent of Wound Bed Granulated/Red: 50 Percent of Devitalized: 50 Length (cm): 2.6 Width (cm): 2.0 Depth (cm): 3.0 CM Sq: 5.200 Undermining Position: 9-4 (deepest at 4) Undermining Depth: 5.4 Surrounding Tissue Appearance: Hyperpigmented Surrounding Tissue Temp: Warm Drainage Amount: Large Drainage Description: Serosanguineous Drainage Odor: No Odor Lidocaine Applied Topically: 2% Jelly Right Heel: Bed Appearance: Black Moist, Brown, Paola and Yellow Percent of Wound Bed Granulated/Red: 15 Percent of Devitalized: 85 Length (cm): 6.0 Width (cm): 9.0 Depth (cm): 0.5 CM Sq: 54.000 Surrounding Tissue Appearance: Hyperpigmented Surrounding Tissue Temp: Warm Drainage Amount: Large Drainage Description: Serosanguineous Drainage Odor: No Odor Lidocaine Applied Topically: 2% Jelly Right Ischium: Bed Appearance: Beefy Red, Epithelial Tissue or Bridge, Paola and Yellow Percent of Wound Bed Granulated/Red: 50 Percent of Devitalized: 50 Length (cm): 9.3 Width (cm): 7.9 Depth (cm): 5.2 CM Sq: 73.470 Undermining Position: 360 (deepest at 7) Undermining Depth: 2.3 Surrounding Tissue Appearance: Hyperpigmented Surrounding Tissue Temp: Warm Drainage Amount: Large Drainage Description: Serosanguineous Drainage Odor: No Odor Lidocaine Applied Topically: 2% Jelly Left Ischium: Bed Appearance: Paola and Yellow Percent of Wound Bed Granulated/Red: 50 Percent of Devitalized: 50 Length (cm): 1.7 Width (cm): 1.5 Depth (cm): 3.5 CM Sq: 2.550 Undermining Position: 3-8 Undermining Depth: 4.5 Surrounding Tissue Appearance: Hyperpigmented Surrounding Tissue Temp: Warm Drainage Amount: Moderate Drainage Description: Serosanguineous Drainage Odor: No Odor Lidocaine Applied Topically: 2% Jelly Right Buttock: Bed Appearance: Beefy Red, Paola and Yellow Percent of Wound Bed Granulated/Red: 75 Percent of Devitalized: 25 Length (cm): 6.6 Width (cm): 2.0 Depth (cm): 0.1 CM Sq: 13.200 Surrounding Tissue Appearance: Hyperpigmented Surrounding Tissue Temp: Warm Drainage Amount: Moderate Drainage Description: Serosanguineous Drainage Odor: No Odor Lidocaine Applied Topically: 2% Jelly Right Lower Lateral Leg: Bed Appearance: Beefy Red, Paola and Yellow Percent of Wound Bed Granulated/Red: 50 Percent of Devitalized: 50 Length (cm): 1.8 Width (cm): 1.5 Depth (cm): 0.1 CM Sq: 2.700 Surrounding Tissue Appearance: Hyperpigmented Surrounding Tissue Temp: Warm Drainage Amount: Moderate Drainage Description: Serosanguineous Drainage Odor: No Odor Lidocaine Applied Topically: 2% Jelly Right Lower Medial Leg: Bed Appearance: Black Dry, Paola and Yellow Percent of Wound Bed Granulated/Red: [...] Diabetes mellitus type: type 2 Diabetes mellitus care home insulin use:with terminal makeup operator use Diabetes mellitus complication status: with skin complications Diabetes mellitus complication detail: with other skin ulcer Qualified Code(s): E11.622 - Type 2 diabetes mellitus with other skin ulcer; 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 See Instructions for Orders See Instructions for Orders See Wound Discharge Instructions for Orders: Patient may require serial debridement to remove devitalized tissue and encourage granulation. Dictated By: Cathy Brar MD DD/ [id number] Signed By: <Electronically signed by MD Cathy Brar> 07/29/21 1233 [facility] Work Phone: Evaluation + Plan note No data available for this section [facility] evaluation note* Diagnosis Onset Date Resolution Status Right hip pain acute Stage IV pressure ulcer of sacral region acute Unstageable pressure ulcer of right heel acute Cauda equina spinal cord injury chronic Diabetes chronic Pressure ulcer of left hip, stage 3 resolved Pressure ulcer of right hip, stage 3 resolved [facility] Work Phone: Evaluation note* Diagnosis Neurogenic bladder Neurogenic bladder, NOS documented in this encounter [facility] Work Phone: evaluation note* Diagnosis Neurogenic bladder Neurogenic bladder, NOS documented in this encounter [employer] Phone: evaluation note* Diagnosis Hyperkalemia- Primary Hyperpotassemia [...] of neurogenic bladder documented in this encounter [facility] Work Phone: evaljnhupr note* Diagnosis Acute kidney injury (HCC) Acute kidney failure, unspecified Iron deficiency anemia, unspecified iron deficiency anemia type [facility] Work Phone: evaluation note* Diagnosis Onset Date Resolution Status Pressure injury of left ischium, stage 4 acute Pressure injury of right ischium, stage 4 acute Pressure ulcer of right foot, stage 2 acute Right hip pain acute 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 Diabetes chronic [facility] Work Phone: Evaluation note* Diagnosis Cauda equina syndrome (HCC) Cauda equina syndrome without mention of neurogenic bladder Neurogenic bladder Neurogenic bladder, NOS Urinary retention Retention of urine, unspecified Urinary incontinence without sensory awareness Incontinence without sensory awareness [facility] Diagnosis Cellulitis of left foot- Primary Ulcer of left ankle, with necrosis of bone (HCC) ([facility]/HCC) Diabetes mellitus due to underlying condition with diabetic polyneuropathy, unspecified whether terminal makeup operator insulin use (CMS/HCC) Acute complete paraplegia ([facility]/HCC) Acute osteomyelitis of left fibula ([facility]/HCC) Foot ulcer, right, with fat layer exposed ([facility]/HCC) Venous insufficiency Unspecified venous (peripheral) insufficiency documented in this encounter [facility] Healthcare[facility]* Diagnosis Abscess of toe, right- Primary documented in this encounter [facility] Healthcare[facility]* Diagnosis Onset Date Resolution Status [id number] acute Foot ulcer with fat layer exposed acute Stage IV pressure ulcer of right buttock acute 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 buttock, stage 3 chronic [facility] Work Phone: Evaluation note* Diagnosis Type [...] disorder Chronic kidney disease, stage 3a (HCC) ([facility]) Encounter for long-term (current) use of medications Encounter for long-term (current) use of other medications Cauda equina syndrome ([facility]) Cauda equina syndrome without mention of neurogenic bladder Urticaria- Primary Unspecified urticaria documented in this encounter [facility] HealthcareEvaluation note* Diagnosis Type 2 diabetes mellitus with hyperglycemia, without long-term current use of insulin ([facility])- Primary Dyslipidemia ([facility]) Other and unspecified hyperlipidemia Benign hypertension ([facility]) Essential hypertension, benign Major depressive disorder, recurrent episode, mild (HCC) ([facility]) Major depressive disorder, recurrent episode, mild Incontinence overflow, urine Overflow incontinence Chronic superficial 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 Type 2 diabetes mellitus with hyperglycemia, without long-term current use of insulin ([facility])- Primary Benign hypertension ([facility]) Essential hypertension, benign Major depressive disorder, recurrent episode, mild (HCC) ([facility]) Major depressive disorder, recurrent episode, mild Incontinence overflow, urine Overflow incontinence Pruritus Unspecified pruritic disorder Chronic kidney disease, stage 3a (HCC) ([facility]) Encounter for long-term (current) use of medications Encounter for long-term (current) use of other medications Cauda equina syndrome ([facility]) Cauda equina syndrome without mention of neurogenic bladder Urticaria- Primary Unspecified urticaria Pruritus Unspecified pruritic disorder documented in this encounter [facility] HealthcareEvaluation note* Diagnosis Type 2 diabetes mellitus with hyperglycemia, without long-term current use of insulin ([facility])- Primary Benign hypertension ([facility]) Essential hypertension, benign Major depressive disorder, recurrent episode, mild (HCC) ([facility]) Major depressive disorder, recurrent episode, mild Incontinence overflow, urine Overflow incontinence Pruritus Unspecified pruritic disorder Chronic kidney disease, stage 3a (HCC) ([facility]) Encounter for long-term (current) use of medications Encounter for long-term (current) use of other medications Cauda equina syndrome ([facility]) Cauda equina syndrome without mention of neurogenic bladder documented in this encounter [facility]* Diagnosis Type 2 diabetes mellitus with hyperglycemia, without long-term current use of insulin ([facility])- Primary Dyslipidemia ([facility]/HCC) Other and unspecified hyperlipidemia Benign hypertension ([facility]) Essential hypertension, benign Major depressive disorder, recurrent episode, mild (HCC) ([facility]/HCC) Major depressive disorder, recurrent episode, mild Incontinence overflow, urine Overflow incontinence Chronic superficial 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 Type 2 diabetes mellitus with hyperglycemia, without long-term current use of insulin ([facility])- Primary Benign hypertension ([facility]) Essential hypertension, benign Major depressive disorder, recurrent episode, mild (HCC) ([facility]/HCC) Major depressive disorder, recurrent episode, mild Incontinence overflow, urine Overflow incontinence Pruritus Unspecified pruritic disorder Chronic kidney disease, stage 3a (HCC) ([facility]) Encounter for long-term (current) use of medications Encounter for long-term (current) use of other medications Cauda equina syndrome ([facility]) Cauda equina syndrome without mention of neurogenic bladder Urticaria- Primary Unspecified urticaria Type 2 diabetes mellitus with hyperglycemia, without long-term current use of insulin ([facility])- Primary Benign hypertension ([facility]) Essential hypertension, benign Major depressive disorder, recurrent episode, mild (HCC) ([facility]) Major depressive disorder, recurrent episode, mild Incontinence overflow, urine Overflow incontinence Chronic superficial 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 Urticaria Unspecified urticaria Pruritus Unspecified pruritic disorder Annual physical exam Routine general medical examination at a health care facility Chronic kidney disease, stage 3a (HCC) ([facility]) Class 2 severe obesity due to excess calories with serious comorbidity and body mass index (BMI) of 36.0 to 36.9 in adult ([facility]) Type 2 diabetes mellitus with other specified complication Hyperlipidemia, unspecified ([facility]/HCC) Pressure ulcer of right heel, unstageable ([facility]) Type 2 diabetes mellitus with other skin ulcer (CODE) Paraplegia, unspecified Diabetes mellitus due to underlying condition with diabetic polyneuropathy ([facility]) documented in this encounter [facility] Healthcare[facility]ospital Discharge instructions Additional Instructions DISCHARGE INSTRUCTIONS FOR PROCEDURE Podiatry, Dr. Bah -If you having excessive or persistent pain, [...] -Report any increase in swelling to Dr. Bah immediately -Resume regular diet Call the office if you develop: -Persistent bleeding -Temperature above 100 degrees Fahrenheit. -Persistent vomiting -Calf pain or shortness of breath -Redness or pus at operative site FOLLOW UP Phone numbers: Office [phone] [facility] Work Phone: Hospital Discharge instructions No data available for this section [facility] InstructionsNot on filedocumented in this encounter [facility] No data available for this section [facility] Summary Purpose Family History No [...] Fibula Osteomyelitis, Diabetes, Ulcerative Reason for Visit [id number] Foot ulcer with fat layer exposed 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 Cauda equina spinal cord injury Pressure ulcer of left buttock, stage 3 Chief Complaint Open Wound Left Fibula Osteomyelitis, Diabetes, Ulcerative Unknown Reason for Visit [id number] Foot ulcer with fat layer exposed Stage [...] spinal cord injury February 08, 2024 10:48am Chief Complaint Admit Date Open Wounds - CART March 14, 2024 10:42am Reason for Visit Admit Date Diabetes mellitus due to und erlying condition with diabetic neuropathy, wit March 14, 2024 10:42am Pressure injury of left ischium, stage 4 March 14, 2024 10:42am Pressure injury of right ischium, stage 4 March 14, 2024 10:42am Stage IV pressure ulcer of sacral region March 14, 2024 10:42am Cauda equina spinal cord injury March 14, 2024 10:42am Reason for Referral Specialty Diagnoses / Procedures Referred By Farzaneh t Referred To Contact Cardiology Diagnoses Neurogenic bladder Procedures EKG 12 Lead Angeles Nagy MD [address] [place] [address], [address] [place] [address] Referral ID Status Reason Start Date Expiration Date V isits Requested Visits Authorized [id number] Pending Review 06/22/2022 06/22/2023 1 1 Specialty Diagnoses / Procedures Referred By Contac t Referred To Contact Radiology Diagnoses Cauda equina syndrome (HCC) Neurogenic bladder Urinary retention Urinary incontinence without sensory awareness Procedures US RENAL COMPLETE Ashlee Erwin W, TAIL[employer] [address] [place] [address] Referral ID Status Reason Start Date Expiration Date Visits Re quested Visits Authorized [id number] Open 09/18/2022 09/18/2023 1 1 Additional Source Comments (unrecognized sect ion and content) No Status Records FoundNo Status Records FoundNo Status Records FoundNo Status Records FoundNo Status Records FoundNo Status Records FoundNo Status Records Found INFORMATION SOURCE (unrecogn ized section and content) DATE CREATED AUTHOR 09/21/2017 [facility] DATE CREATED AUTHOR AUTHOR'S ORGANIZ ATION 04/08/2022 [facility] DATE CREATED AUTHOR AUTHOR'S ORGANIZ ATION 09/27/2022 [facility] DATE CREATED AUTHOR AUTHOR'S ORGANIZ ATION 10/22/2023 [facility] DATE CREATED AUTHOR AUTHOR'S ORGANIZ ATION 05/02/2024 [facility] [facility] DATE CREATED AUTHOR AUTHOR'S ORGANIZ ATION 07/09/2024 [facility] DATE CREATED AUTHOR AUTHOR'S ORGANIZ ATION 08/03/2024 [facility] EPIC Care Teams (unrecognized sec tion and content) Team Status: Active Member Role Status Dates Fidel Abbott MD Primary Care Provider Active Team Status: Active Member Role Status Dates Fidel Abbott MD Primary Care Provider Active S tart: March 10, 2024 Avelino Ortega DO Attending Provider Active Sta rt: March 10, 2024 Team Status: Inactive Member Role Status Dates Cathy Brar MD Attending Provider Active Sta rt: March 14, 2024 End: March 14, 2024 Fidel Abbott MD Primary Care Provider Active S tart: March 14, 2024 End: March 14, 2024 Team Status: Inactive Member Role Status Dates Fidel Abbott MD Primary Care Provider Active Cathy Brar MD Attending Provider Active Customer Support Advisor Relationship Specialty Start Date End Date Fidel Abbott MD PCP - General 07/03/15 Customer Support Advisor Relationship Specialty Start Date End Date Fidel Abbott MD PCP - General 07/03/15 Customer Support Advisor Relationship Specialty Start Date End Date Fidel Abbott MD PCP - General 07/03/15 Customer Support Advisor Relationship Specialty Start Date End Date Fidel Abbott MD PCP - General 07/03/15 Customer Support Advisor Relationship Specialty Start Date End Date Fidel Abbott MD PCP - General 07/03/15 Customer Support Advisor Relationship Specialty Start Date End Date Fidel Abbott MD PCP - General Family Medicine 12/10/22 Fidel Abbott MD [address] [place] [phone] PCP - [employer] 03/29/23 Customer Support Advisor Relationship Specialty Start Date End Date Fidel Abbott MD PCP - General Family Medicine 12/10/22 Fidel Abbott MD [address] [place] [address] PCP - [employer] 03/29/23 Customer Support Advisor Relationship Specialty Start Date End Date Fidel Abbott MD [address] [place] [address] PCP - [employer] 03/29/23 Fidel Abbott MD [address] [place] [address] PCP - General Family Medicine 05/12/23 Team [...] 04, 2023 End: June 04, 2023 Jonathan Bah DPM Attending Provider Active Start: June 04, 2023 End: June 04, 2023 Team Status: Inactive Member Role Status Dates Bubba Bahena DPM MS Attending Provider Active Start: July 08, 2023 End: July 08, 2023 Customer Support Advisor Relationship Specialty Start Date End Date Fidel Abbott MD PCP General 12/28/16 Customer Support Advisor Relationship Specialty Start Date End Date Fidel Abbott MD [address] [place] [address] PCP - [employer] 02/26/23 Fidel Abbott MD [address] [place] [address] PCP - General [facility] Medicine 11/18/23 Customer Support Advisor Relationship Specialty Start Date End Date Fidel Abbott MD [address] [place] [address] PCP - [employer] 02/26/23 Fidel Abbott MD [address] [place] [address] PCP - General Family Medicine 11/18/23 Team [...] Provider Active S tart: February 08, 2024 Customer Support Advisor Relationship Specialty Start Date End Date Fidel Abbott MD [address] [place] [address] PCP - [employer] 02/26/23 Fidel Abbott MD [address] [place] [address] PCP - General Family Medicine 11/18/23 Customer Support Advisor Relationship Specialty Start Date End Date Fidel Abbott MD [address] [place] [address] PCP - [employer] 02/26/23 Fidel Abbott MD [address] [place] [address] PCP - General Family Medicine 11/18/23 Customer Support Advisor Relationship Specialty Start Date End Date Fidel Abbott MD [address] [place] [address] PCP - [employer] 02/26/23 Fidel Abbott MD [address] [place] [address] PCP - General Family Medicine 11/18/23 Customer Support Advisor Relationship Specialty Start Date End Date Fidel Abbott MD PCP - General 12/28/16 Customer Support Advisor Relationship Specialty Start Date End Date Fidel Abbott MD PCP - General 12/28/16 Customer Support Advisor Relationship Specialty Start Date End Date Fidel Abbott MD [address] [place] [address] PCP - [employer] 02/26/23 Fidel Abbott MD [address] [place] [address] PCP - General Family Medicine 11/18/23 Fidel Abbott MD [address] [place] [address] PCP - [employer] 05/05/24 Customer Support Advisor Relationship Specialty Start Date End Date Fidel Abbott MD [address] [place] [address] PCP - [employer] 02/26/23 Fidel Abbott MD [address] [place] [address] PCP - General Family Medicine 11/18/23 Fidel Abbott MD [address] [place] [address] PCP - [employer] 05/05/24 Customer Support Advisor Relationship Specialty Start Date End Date Fidel Abbott MD [address] [place] [address] PCP - [facility] 02/26/23 Fidel Abbott MD [address] [place] [address] PCP - General Family Medicine 11/18/23 Fidel Abbott MD [address] [place] [address] PCP - [employer] 05/05/24 Goals (unrecognized section and content) Goals may be documented in a n alternate sectionGoals may be documented in an alternate section No data available for this section No data available for this sectionNot on filedocumented as of this encounterGoals may be documented in an alternate sectionNot on filedocumented as of this encounterNot on filedocumented as of this encounterNot on filedocumented as of this encounterNot on [...] kidney injury (HCC) Matias Garcia MD [address] [place] [address] [facility] [address] [place] [address] Referral ID Status Reason Start Date Expiration Date Visits Re quested Visits Authorized [id number] 1 1 Specialty Diagnoses / Procedures Referred By Farzaneh sy Referred To Contact Radiology Diagnoses Cauda equina syndrome (HCC) Neurogenic bladder Urinary retention Urinary incontinence without sensory awareness Procedures US RENAL COMPLETE Ashlee Erwin, TAILOR FITTER - [employer] [address] [place] [address] Referral ID Status Reason Start Date Expiration Date Visits Re quested Visits Authorized [id number] Open 09/18/2022 09/18/2023 1 1 Reason Comments Foot Ulcer Reason Onset Date Comments Prescription 05/13/2023 Reason Comments Follow-up Hives Waist up hives and i tchy Reason Comments Med Refill Reason Comments Follow-up Check upItchy from w aist up Reason Comments Follow-up Check up Ordered Prescriptions (unrec ognized section and content) [...] Unreviewed Transfer Orders)0900 (Automatically Held - Provider: [facility] [employer])0959 (MAY Unhold - Provider: Dragan Voss RN)1234 (Given [...] Autohold)0959 (MAY Unhold - Provider: Dragan Voss RN)1233 (Given - Provider: Linh Rocio) citalopram (CELEXA) tablet 40 mg 40 mg, [...] - Provider: Sylvia Chao)0922 (Stopped - Provider: Hrei Valdez RN)1619 (New Bag - Provider: Heri [...] Linh Rocio)2045 (Due - Provider: Linda Ibrahim [facility]) fenofibrate (TRIGLIDE) tablet 160 mg [...] Reason: Contraindicated)1512 (Held by provider - Provider: Shlely Mondragon APRN - DOLLY - Reason: Other)1600 (Automatically Held - Provider: Shelly Mondragon APRN - [employer]) 0000 (Automatically Held - Provider: Shelly Mondragon APRN - [employer])0800 (Automatically Held - Provider: Shelly Mondragon APRN - [employer])1600 (Automatically Held - Provider: Shelly Mondragon APRN - [employer]) 0000 (Automatically Held - Provider: Shelly Mondragon APRN - [employer])0800 (Automatically Held - Provider: Shelly Mondragon APRN - [employer])1600 (Automatically Held - Provider: Shelly Mondragon APRN - [employer]) multivitamin 1 tablet 1 tablet, Oral, DAILY, First dose on Wed06/25/22 at 0900, Until Discontinued 0724 (Given - Provider: Heri Valdez RN) 0812 (MAR Hold - Provider: Cammy [employer] - Reason: Unreviewed Transfer Orders)0900 (Automatically Held - Provider: Cammy [employer])0959 (MAR Unhold - Provider: Dragan Voss RN)1235 (Given - Provider: Lihn Chan) polyethylene glycol (GoLYTELY) solution 4,000 mL [...] Fluid Infusing) 0812 (MAR Hold - Provider: [facility] [employer] - Reason: Unreviewed Transfer [...] Valdez RN) 0812 (MAR Hold - Provider: [facility] [employer] - Reason: Unreviewed Transfer Orders)0900 (Automatically Held - Provider: Cammy [employer])0959 ([facility] Unhold - Provider: Dragan Voss RN) [...] into rate field of order. 0812 ([facility] Hold - Pro vider: [facility] [employer] - Reason: Unreviewed Transfer Orders)0959 ([facility] Unhold - Provider: Dragan Voss RN) 0.9 % sodium chloride infusion IntraVENous, at 240 mL/hr, Administer over 10 Minutes, PRN, blood administration, Starting on Wed06/24/22 at 0733, For 1 dose, For use in priming line prior to transfusion (prime via gravity) and flush line post transfusion ONLY. Discontinue once line has been cleared of remaining blood product. 0812 ([facility] Hold - Pro vider: [facility] [employer] - Reason: Unreviewed Transfer Orders)0959 ([facility] Unhold - Provider: Dragan Voss RN) acetaminophen (TYLENOL) suppository 650 mg(Linked Group 1) 650 mg, Rectal, EVERY 6 HOURS PRN, Starting on Wed06/22/22 at 2017, Until Discontinued, Pain Mild (1-3), Fever, For temp greater than 100.4 F (38 C), Administer if oral route cannot be used. 0812 ([facility] Hold - Pro vider: [facility] [employer] - Reason: Unreviewed Transfer Orders)0959 ([facility] Unhold - Provider: Dragan Voss RN) acetaminophen (TYLENOL) tablet 650 mg(Linked Group 1) 650 mg, Oral, EVERY 6 HOURS PRN, Starting on Wed06/22/22 at 2017, Until Discontinued, Pain Mild (1-3), Fever, For temp greater than 100.4 F (38 C), Maximum dose of acetaminophen is 4000 mg from all sources in 24 hours. 0812 ([facility] Hold - Pro vider: [facility] [employer] - Reason: Unreviewed Transfer Orders)0959 ([facility] Unhold - Provider: Dragan Voss RN) ondansetron (ZOFRAN) injection 4 mg(Linked Group 2) 4 mg, IntraVENous, EVERY 6 HOURS PRN, Starting on Wed06/22/22 at 2017, Until Discontinued, Nausea, Vomiting, Administer if oral route cannot be used. 0812 ([facility] Hold - Pro vider: [facility] [employer] - Reason: Unreviewed Transfer Orders)0959 ([facility] Unhold - Provider: Dragan Voss RN) ondansetron (ZOFRAN-ODT) disintegrating tablet 4 mg(Linked Group 2) 4 mg, Oral, EVERY 8 HOURS PRN, Starting on Wed06/22/22 at 2017, Until Discontinued, Nausea, Vomiting 0812 ([facility] Hold - Pro vider: [facility] [employer] - Reason: Unreviewed Transfer Orders)0959 ([facility] Unhold - Provider: Dragan Voss RN) polyethylene glycol (GLYCOLAX) packet 17 g 17 g, Oral, DAILY PRN, Starting on Wed06/22/22 at 2017, Until Discontinued, Constipation, First line therapy for constipation 0812 ([facility] Hold - Pro vider: [facility] [employer] - Reason: Unreviewed Transfer Orders)0959 ([facility] Unhold - Provider: Dragan Voss RN) sodium chloride flush 0.9 % injection 10 mL 10 mL, IntraVENous, PRN, Starting on Wed06/22/22 at 2017, Until Discontinued, Line Care, After every IV line use 0812 ([facility] Hold - Pro vider: [facility] [employer] - Reason: Unreviewed Transfer Orders)0959 ([facility] Unhold - Provider: Dragan Voss RN) Linked [...] BE BASED ON THE PRIMARY CLINICAL RECORDS. [employer] provides no warranty or guarantee of the accuracy or completeness of information in this document.
[2024-08-10 12:13] LABS: Alanine Aminotransferase 17 U/L (16-63); Albumin Globulin Ratio 0.3; Albumin Level 1.8 g/dL (3.4-5.0); Alkaline Phosphatase 116 U/L (46-116); Aspartate Amino Transferase 15 U/L (15-37); Bilirubin Direct 0.1 mg/dL (0.0-0.2); Bilirubin Total 0.2 mg/dL (0.2-1.0); Chol HDL Ratio 2.9; Cholesterol 85 mg/dL (<=200); Globulin 5.9 g/dL; HDL Cholesterol 29 mg/dL (40-60); Thyroid Stimulating Hormone 1.267 uIU/mL (0.358-3.740); Total Protein 7.7 g/dL (6.4-8.2); Triglycerides 58 mg/dL (<=150); VLDL CHOLESTEROL 11.6 mg/dL
[2024-08-10 12:35] LABS: Prostate Specific Antigen Scrn 0.44 ng/mL (<=4.00)
[2024-08-10 12:39] LABS: Estimated Average Glucose 148 mg/dL; Glycohemoglobin A1C 6.8 % (4.5-6.2)
== END 2024-08-10 10:33 | disposition home or self-care (01) ==
LOC: LAB 10:34
PROVIDERS: PCP Family Medicine; Visit Provider Family Medicine
DX: Z00.00 Encounter for general adult medical examination without abnormal findings (principal); E11.65 Type 2 diabetes mellitus with hyperglycemia
CPT/HCPCS: 36415; 80061; 80076; 82043; 82570; 83036; 84443; G0103

== ENCOUNTER 2024-08-10 10:48 | Outpatient (OUT) | payer BC, MEDICARE, SELFPAY ==
[2024-08-10 11:09] LABS: Basophils Absolute Auto 0.1 10^3/uL (0.0-0.1); Basophils Percent Auto 0.4 % (0.2-2.0); Eosinophils Absolute Auto 0.7 10^3/uL (0.0-0.7); Hemoglobin 7.3 g/dL (14.0-18.0); Immature Granulocytes Abs Auto 0.06 10^3/uL (0.00-0.03); Immature Granulocytes Pct Auto 0.4 % (0.0-0.5); Lymphocytes Absolute Auto 1.6 10^3/uL (1.2-3.8); Lymphocytes Percent Auto 11.5 % (20.5-60.0); Mean Corpuscular HGB Conc 31.2 g/dL (29.9-35.2); Mean Corpuscular Volume 83.3 fL (80.0-94.0); Mean Platelet Volume 8.9 fL (9.5-13.5); Monocytes Absolute Auto 1.1 10^3/uL (0.3-0.8); Monocytes Percent Auto 8.2 % (1.7-12.0); Neutrophils Absolute Auto 10.3 10^3/uL (1.4-6.5); Neutrophils Percent Auto 74.5 % (43.0-75.0); Platelet Count 319 10^3/uL (150-450); Red Blood Count 2.81 10^6/uL (4.70-6.10); Red Cell Distribution Width 14.3 % (11.0-15.0); White Blood Count 13.8 10^3/uL (4.0-11.0)
[2024-08-10 11:13] LABS: Hematocrit 23.4 % (42.0-54.0)
[2024-08-10 11:57] LABS: Anion Gap 10.3; BUN Creatinine Ratio 14.2; Calcium 8.7 mg/dL (8.5-10.1); Carbon Dioxide 26.5 mmol/L (21.0-32.0); Chloride 103 mmol/L (98-107); Estimated GFR (African America 38 (>=60 mL/min/1.73m^2); Estimated GFR (Non-African Ame 32 (>=60 mL/min/1.73m^2); Glucose 243 mg/dL (74-106); Potassium 3.8 mmol/L (3.5-5.1); Sodium 136 mmol/L (136-145)
[2024-08-10 12:22] LABS: Percent Iron Saturation 12.9 %
== END 2024-08-10 10:49 | disposition home or self-care (01) ==
LOC: LAB 10:50
PROVIDERS: PCP Family Medicine; Visit Provider Internal Medicine Hematology & Oncology
DX: Z00.00 Encounter for general adult medical examination without abnormal findings (principal); E11.65 Type 2 diabetes mellitus with hyperglycemia; D72.829 Elevated white blood cell count, unspecified; D64.9 Anemia, unspecified; D50.9 Iron deficiency anemia, unspecified; K90.9 Intestinal malabsorption, unspecified
CPT/HCPCS: 36415; 80048; 80061; 80076; 82728; 83036; 83540; 83550; 84443; 85025; G0103

== ENCOUNTER 2024-08-18 08:49 | Outpatient (OUT) | payer BC, MEDICARE, SELFPAY ==
--- OUTSIDE RECORDS SUMMARY | 2024-06-21 09:00 | XMS_ITS ---
Author Organization [facility] in [place] Address [address] [place] [address] Care Team Providers Care Manager Of Maintenance Name Role Phone Fidel Reis MD Primary Care Provider Unavailab shepard EliezerMandieRaghavendra Unavailable [phone] Allergies Allergen (clinical drug ingredient) Drug/Non Drug Allergy documented on EMR Reaction Allergy Type Onset Date Status vancomycin Vancomycin Renal failure Drug Allergy A ctive REASON FOR VISIT 1y JAE Medications Medication SIG (Take, Route, Frequency, Duration) Notes Start Date End Date Status hydrOXYzine HCl 50 MG TAKE 1 TABLET BY M OUTH 4 TIMES DAILY NEEDED FOR ITCHING Oral for 8 Days Active glipiZIDE 10 MG 1 tablet 30 minutes before breakfast Orally Once a day Active Citalopram Hydrobromide 40 MG 0.5 tablet Orally Once a day Active Lisinopril 20 MG 1 tablet Orally Once a day Active Januvia 100 MG 1 tablet Orally Once a day Active Atorvastatin Calcium 40 MG Oral for 30 Days Active Atenolol 100 MG 1 tablet Orally Once a day Active amLODIPine Besylate 10 MG 1 tablet Orall y Once a day Active Social History Tobacco Use: Social History Observation Description Date Details (start date - stop date) Never Smoker NA - NA Tobacco Control (Standard) Question Answer Notes Tobacco use: Nonsmoker Problems Problem Type SNOMED Code ICD Code Onset Dates Problem Status W/U Status Risk Notes Problem Obesity (E66.9) Active confirmed Vital Signs Temperature 97.0 degrees Fahrenheit 06/22/19 25 Blood pressure systolic 153 mm Hg 06/22/19 25 Blood pressure diastolic 75 mm Hg 025 Heart Rate 72 /min 06/21/2024 Respiratory Rate 18 /min 06/21/2024 Height 71 in 06/21/2024 Weight 225.0 lbs 06/21/2024 BMI 31.38 kg/m2 06/21/2024 Oximetry 98 % 06/21/2024 Weight reported by patient Encounters Encounter Location Date Provider Diagnosis [facility] [address] [place] [address] 06/21/2024 Raghavendra Martins JAE (obstructive sleep apnea) G47.33 ; Chronic paraplegia G82.20 and Obesity E66.9 Assessments Encounter Date Diagnosis (ICD Code) Assessment Notes Treatment Notes Treatment Clinical Notes Section Notes 06/21/2024 JEA (obstructive sleep apnea) (ICD-10 - G47.33) Dspe-zl-yunx encounter performed with the patient to document continued need for PAP therapy. -DME: BJO-Lyjpx-dilde study 03/14/2021: AHI 79; Titration: CPAP 84fmO1T, though BiPAP also used during the study-Compliance was reviewed from 05/20/2024 - 06/18/2024-Total days used: (100%)-Total of all days >4 hours of use: 30/ (100%)-Current model, mode, & pressure(s): AirSense 11 AutoSet CPAP 76wkX4X-Fvzbkyjr AHI: 13.7-Median air leak: 34.6L/min-Mask/harn ess fitting: Okay even with julien-Sleep quality: Wakes up once a night d/t pain-Daytime hypersomnolence: Not waking up feeling refreshed in the morning-Recommendat ions: He has superb compliance, but AHI is suboptimal @ 13.7 (goal <5). This is despite the patient losing 25# since last visit. Previously was on BiPAP and more recently CPAP 54roN5T. Currently at 18lnA0I. Discussed several options including increasing pressure to 24wiD4A or changing to an auto-CPAP. Patient voiced he would be okay with either option. Will try auto-CPAP to start 10-95ixX2S - if unable to do so, will change pressure to 22raW9P and recheck compliance in 1 month. He was counseled to continue using it every night and with naps.-This ytwe-ga-xfmm visit comes with the recommendation that the patient's DME renew, reorder, and/or replace tubing, supplies, mask, and/or PAP device (if applicable). F/U 1 year or sooner PRN. 06/21/2024 Chronic paraplegia (ICD-10 - G82.20) 06/21/2024 Obesity (ICD-10 - E66.9) Patient's weight is inducing a restrictive pulmonary physiology. Weight loss indicated: Decrease calories, increase activity. 06/21/2024 Other Etiology unclear, no rashes/urticaria, macules, papules, etc. He states his recent renal function was okay, so less likely uremic leon. No change to soaps, detergents, call center director, body wash, etc. Diphenhydramine and hydroxyzine did not help. Question ferrous sulfate - this was the most recent change to his regimen, and there are case reports of itching/rashes associated with it. I strongly suggested he discuss this with Dr. River and/or his PCP, or referral to an crusher. Plan Of Treatment Treatment Notes Assessment Notes JAE (obstructive sleep apnea) Mktz-rf-difk encounter performed with the patient to document continued need for PAP therapy. -DME: ZRK-Pbfdx-ykjnm study 03/14/2021: AHI 79; Titration: CPAP 95liL8I, though BiPAP also used during the study-Compliance was reviewed from 05/20/2024 - 06/18/2024-Total days used: 30/30 (100%)-Total of all days >4 hours of use: 30/30 (100%)-Current model, mode, & pressure(s): AirSense 11 AutoSet CPAP 36hvF5L-Qcsfmxfi AHI: 13.7-Median air leak: 34.6L/min-Mask/harness fitting: Okay even with julien-Sleep quality: Wakes up once a night d/t pain-Daytime hypersomnolence: Not waking up feeling refreshed in the morning-Recommendations: He has superb compliance, but AHI is suboptimal @ 13.7 (goal <5). This is despite the patient losing 25# since last visit. Previously was on BiPAP and more recently CPAP 10roC3L. Currently at 07ixX5A. Discussed several options including increasing pressure to 86vnT0A or changing to an auto-CPAP. Patient voiced he would be okay with either option. Will try auto-CPAP to start 10-28ylL6J - if unable to do so, will change pressure to 89ubN1L and recheck compliance in 1 month. He was counseled to continue using it every night and with naps.-This wzlw-fz-unju visit comes with the recommendation that the patient's DME renew, reorder, and/or replace tubing, supplies, mask, and/or PAP device (if applicable). F/U 1 year or sooner PRN. Obesity Patient's weight is inducing a restrictive pulmonary physiology. Weight loss indicated: Decrease calories, increase activity. Other Etiology unclear, no rashes/urticaria, macules, papules, etc. He states his recent renal function was okay, so less likely uremic leon. No change to soaps, detergents, call center director, body wash, etc. Diphenhydramine and hydroxyzine did not help. Question ferrous sulfate - this was the most recent change to his regimen, and there are case reports of itching/rashes associated with it. I strongly suggested he discuss this with Dr. River and/or his PCP, or referral to an crusher. Next Appt Details Follow Up: 1 Year, Reason: O SA Provider Name:Nina River , 08/29/2024 10:30:00 AM, [address] [place], [address], Provider Name:Raghavendra Martins, 06/13/2025 11:00:00 AM, [address] [place], [address], Progress Notes * Ganga MIRANDA LDOB:1960 (63 yo M)Acc No.[id number]:06/21/2024 Follow Up Patient: Ganga LOPEZ Cristina Provider: Valentine Martins DO :1960 A ge:63 Y S ex:Male Date:06/21/2024 Address:[address] [place], [place] [address] Pcp:Fidel Reis MD Check In:12:55 PM ESTCheck O ut:01:24 PM EST Subjective: * Chief Complaints: * 1 y JAE * HPI: E pworth Sleepiness Scale: Patient has not been seen for over 1.5 years (last visit 12/15/2022). He has lost 25 pounds since last visit. He has had numerous issues with his lower extremities - they are both dressed nearly up to his knees today; he is using a motorized unit to move. Since last visit, he has been much more compliant with the CPAP - he has superb compliance over the last 30 days (100%), though he states every now and then, I just can't stand to wear it! Reviewed compliance data - AHI is not at goal @ 13.7. He laso has a moderate air leak 34.6L/min.? This is slightly better than when compliance was last run on 02/27/2024 with AHI 20.2 and leak 57.5L/min. He admits he does not feel well-rested in the morning. CPAP pressure remains at 96nrK9U. MA Intake Comments:. Luling Sleepiness Scale C honey of dozing while sitting and reading:?2 - Moderate Chance C honey of dozing while watching TV: 1 - Slight Chance C honey of dozing while sitting in a public place: 0 - Never C honey of dozing as a passenger in a car for an hour without a break: 3 - High Chance C honey of dozing while lying down in the afternoon to rest: 2 - Moderate Chance C honey of dozing while sitting and talking to someone: 0 - Never C honey of dozing while sitting quietly after lunch: 0 - Never C honey of dozing in a stopped car for a few minutes in traffic: 0 - Never T OTAL SCORE: 8 Patient presents for a follow-up for JAE. DME:MSC. Patient is compliant with his PAP and denies any complaints or concerns today. Patient denies any issues with the machine/supplies. Patient reports great benefit. Patient is under the care of . * ROS: G eneral/Constitutional: Fever or sweats d enies. C hange of appetite d enies. C hills d enies. W eight Change d enies. H EENT: Dry mouth d enies. S ore throat d enies. O ral Ulcers d enies. P ost Nasal Drip D enies. C ongestion D enies. H oarseness?Denies. C ardiovascular: Tachycardia d enies. C hest pain d enies. P alpitations d enies. R espiratory: Chest tightness d enies. P leurisy D enies. D yspnea d enies. C ough d enies. H emoptysis d enies. W heezing d enies.? G astrointestinal: Acid Reflux/GERD/Heartburn d enies. D ysphagia d enies. M usculoskeletal: Arthralgias/joint pain D enies. S kin: Easy bruising d enies. H anoop d enies. I tching a dmits. R steve d enies. S kin oozing w ounds on legs. N eurologic: Paresthesias d enies. D izziness/Lightheadedness d enies. S eizures d enies. T remor d enies. H ematology: Abnormal Bleeding d enies. P sychiatric: Anxiety d enies. 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 Modified On:12/22/2022 Status:confirmed D72.829 Leukocytosis Modified On:12/22/2022U Status:confirmed I10 HTN (hypertension) Modified On:12/22/2022U Status:confirmed D50.9 Iron deficiency anem ia Modified On:12/22/2022U Status:confirmed 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 with other specified severity Modified On:07/13/2023 Status:confirmed E11.621 Type 2 diabetes ez itus with foot ulcer Modified On:07/13/2023 Status:confirmed L97.318 Non-pressure chronic ulcer of right ankle with other specified severity Modified On:08/16/2023U Status:confirmed E11.622 DM type 2 causing le g or foot ulcer Modified On:08/16/2023 Status:confirmed L97.818 Non-pressure chronic ulcer of other part of right lower leg with other specified severity Modified On:08/16/2023 Status:confirmed L97.528 Non-pressure chronic ulcer of other part of left foot with other specified severity Modified On:08/16/2023 Status:confirmed L97.412 Non-pressure chronic ulcer of right heel and midfoot with fat layer exposed Modified On:09/01/2023 Status:confirmed I87.313 Stasis edema with ul cer of both lower extremities Modified On:12/13/2023 Status:confirmed L97.812 Skin ulcer of right knee with fat layer exposed Modified On:05/01/2024U Status:confirmed L97.312 Ischemic ulcer of ri ght 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 Modified On:05/01/2024U Status:confirmed L89.512 Pressure injury of r ight ankle, stage 2 Modified On:05/01/2024U Status:confirmed L89.612 Decubitus ulcer of r ight heel, stage 2 Modified On:05/01/2024U Status:confirmed L97.422 Non-pressure chronic ulcer of left heel and midfoot with fat layer exposed Modified On:06/19/2024 Status:confirmed * Medical History: * Surgical History: A ppendectomy Lumbar surgery for cauda equina syndrome Urethral dilation EGD Colonoscopy * Hospitalization/Major Diagno stic Procedure: L eft lower extremity chronic ulcer, cellulitis 10/07/2022 * Family History: F ather: Shy-drager syndrome. M other: diagnosed with Unspecified essential hypertension, Unspecified heart disease. 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 D rugs/Alcohol: D rugs H ave you used drugs other than those for medical reasons in the past 12 months? N o D oes the Patient have a History of Drug Abuse in the Past? N o Caffeine I ntake: 1 -2 cups per day Do you drink alcohol?: No. Do you smoke marijuana?: Denies. * Medications: T akingamLODIPine Besylate 10 MG Tablet 1 tablet Orally Once a day Atenolol 100 MG Tablet 1 tablet Orally Once a day Atorvastatin Calcium 40 MG Tablet Oral Citalopram Hydrobromide 40 MG Tablet 0.5 tablet Orally Once a day glipiZIDE 10 MG Tablet 1 tablet 30 minutes before breakfast Orally Once a day hydrOXYzine HCl 50 MG Tablet TAKE 1 TABLET BY MOUTH 4 TIMES DAILY NEEDED FOR ITCHING Oral Januvia(SITagliptin Phosphate) 100 MG Tablet 1 tablet Orally Once a day Lisinopril 20 MG Tablet 1 tablet Orally Once a day Taking amLODIPine Besylate 10 MG Tablet 1 tablet Orally Once a day Taking Atenolol 100 MG Tablet 1 tablet Orally Once a day Taking Atorvastatin Calcium 40 MG Tablet Oral Taking Citalopram Hydrobromide 40 MG Tablet 0.5 tablet Orally Once a day Taking glipiZIDE 10 MG Tablet 1 tablet 30 minutes before breakfast Orally Once a day Taking hydrOXYzine HCl 50 MG Tablet TAKE 1 TABLET BY MOUTH 4 TIMES DAILY NEEDED FOR ITCHING Oral Taking Januvia(SITagliptin Phosphate) 100 MG Tablet 1 tablet Orally Once a day Taking Lisinopril 20 MG Tablet 1 tablet Orally Once a day DiscontinuedCephalexin 500 MG Capsule 1 capsule Orally tid HYDROcodone- Acetaminophen 5-325 MG Tablet 1 tablet as needed Orally every 4 hrs Ondansetron 4 MG Tablet Disintegrating 1 tablet on the tongue and allow to dissolve Orally every 8 hours oxyBUTYnin Chloride ER 15 MG Tablet Extended Release 24 Hour 1 tablet Orally Once a day SV Iron(Ferrous Sulfate) 325 MG Tablet TAKE 1 TABLET BY MOUTH ONCE DAILY WITH BREAKFAST Oral Medication List reviewed and reconciled with the patientDiscontinued Cephalexin 500 MG Capsule 1 capsule Orally tid Discontinued HYDROcodone- Acetaminophen 5-325 MG Tablet 1 tablet as needed Orally every 4 hrs Discontinued Ondansetron 4 MG Tablet Disintegrating 1 tablet on the tongue and allow to dissolve Orally every 8 hours Discontinued oxyBUTYnin Chloride ER 15 MG Tablet Extended Release 24 Hour 1 tablet Orally Once a day Discontinued SV Iron(Ferrous Sulfate) 325 MG Tablet TAKE 1 TABLET BY MOUTH ONCE DAILY WITH BREAKFAST Oral Medication List reviewed and reconciled with the patient * Allergies: V ancomycin: Renal failure - Side Effectsno[Allergies Verified] Objective: * Vitals: W t:225.0lbs, Ht: 71 in, BP:sittin/75mm Hg, Temp:Forehead:97.0F, HR:72/min, RR:18/min, BMI:31.38Index, Oxygen sat %:Room Air:98%, Ht-cm: 180.34 cm, Wt-k.06 kg. Weight reported by patient. * Examination: E xam: GENERAL APPEARANCE: A ppears stated age. Skin N o rash on face. Mouth P ink and moist. Oropharynx M allampati Class III. Trachea M idline. Chest N ormal. Respiratory Normal M ovements, E ffort N ormal. Auscultation N ormal breath sounds. Cardiac R egular rate and rhythm. Gastrointestinal N ormal. Vascular N o edema. Musculoskeletal B ilateral lower extremities dressed from toes just distal to the knees. In motorized mobility device. Neurological F ocal, intact. Psychiatric A lert and oriented x3. Mentation/Cognition N ormal. Assessment: * Assessment: 1. O SA (obstructive sleep apnea) - G47.33 (Primary) 2 . C hronic paraplegia - G82.20 3 . O besity - E66.9 Plan: * Treatment: 2. O besity Notes: Patient's weight is inducing a restrictive pulmonary physiology. Weight loss indicated: Decrease calories, increase activity. 3. O thers Notes: Etiology unclear, no rashes/urticaria, macules, papules, etc. He states his recent renal function was okay, so less likely uremic leon. No change to soaps, detergents, call center director, body wash, etc. Diphenhydramine and hydroxyzine did not help. Question ferrous sulfate - this was the most recent change to his regimen, and there are case reports of itching/rashes associated with it. I strongly suggested he discuss this with Dr. River and/or his PCP, or referral to an crusher. * Procedure Codes: * Preventive Medicine: COVID Vaccination: H as patient had COVID Vaccination? COVID Vaccination Y es Per Patient-Date Unknown Immunization Status: P neumovacc P t Refused. I nfluenza P t Refused. Screenings/Counseling: F ALL RISK SCREENING Fall Risk Assessment: N o falls in the past year Are you afraid of falling? N o F MAURICIO EXCLUSION Reason: P atient Reason refused/declined Type of Patient Reason: D rug declined by patient B KS ACTION PLAN Above Normal BMI Follow-up D ietary management education, guidance, and counseling * Follow Up: 1 Year (Reason: JAE) * * Sign off status: Completed Visit Status: C HK (Check Out) true * Provider: Valentine Martins DO Date: 0 06/21/2024 Generated for Jelly recio/Renetta/eTransmitting on: 0 08/18/2024 08:52 AM EDT History and Physical Notes * HPI (History of Present Illness) Category Sub-Category Detail Notes Category Not es Luling Sleepiness Scale Luling Sleepiness Scale Chance of dozing while sitting and reading:: 2 - Moderate Chance Patient presents for a follow-up for JAE. DME:[facility]. Patient is compliant with his PAP and denies any complaints or concerns today. Patient denies any issues with the machine/supplies. Patient reports great benefit. Patient is under the care of . Chance of dozing while watching TV:: 1 - Slight Chance Chance of dozing while sitting in a publ ic place:: 0 - Never Chance of dozing as a passen eloise in a car for an hour without a break:: 3 - High Chance Chance of dozing while lying down in the afternoon to rest:: 2 - Moderate Chance Chance of dozing while sitting and talki ng to someone:: 0 - Never Chance of dozing while sitting quietly a fter lunch:: 0 - Never Chance of dozing in a stopped car for a few minutes in traffic:: 0 - Never TOTAL SCORE:: 8 Examination Category Sub-Category Detail Notes Category Not es Exam GENERAL APPEARANCE: Appears stated age Skin No rash on face Mouth [place] and moist Trachea Midline Chest Normal Respiratory Normal Movements, Ef fort Normal Auscultation Normal breath sounds Cardiac Regular rate and rhy thm Gastrointestinal Normal Vascular No edema Musculoskeletal Bilateral lower extr emities dressed from toes just distal to the knees. In motorized mobility device Neurological Focal, intact Psychiatric Alert and oriented x 3 Mentation/Cognition Normal Oropharynx Mallampati Class III
--- OUTSIDE RECORDS SUMMARY | 2024-08-01 09:00 | XMS_ITS ---
Author Organization [facility] in [place] Address [address] [place] [address] Care Team Providers Care Fish Farm Laborer Name Role Phone Smiley NAZARIO, Fidel Primary Care Provider Unavailab Nina Griffin Unavailable [phone] REASON FOR VISIT MD Encounters Encounter Location Date Provider Diagnosis [facility] [address] [place] [address] 08/01/2024 Nina River Plan Of Treatment Next Appt Details Provider Name:Nina River , 08/29/2024 10:30:00 AM, [address] [place] [address], [phone], Provider Name:Raghavendra Martins, 06/13/2025 11:00:00 AM, [address] [place] [address], [phone], Progress Notes * Ganga MIRANDA LDOB:1960 (64 yo M)Acc No.[id number]:08/01/2024 UNLOCKED PROGRESS NOTE Progress Notes Patient: Sameer LOPEZrey Cristina Provider: Geoff River M.D. :1960 A ge:64 Y S ex:Male Date:08/01/2024 Address:[address], [place], [id number] Pcp:Fidel Reis MD Subjective: * Chief Complaints: * 1 . MD. * Medical History: Objective: * Vitals: Assessment: Plan: * Treatment: * * Electronic signature of Humberto River MD, [id number] on 08/18/2024 at 08:52 AM EDT Sign off status: Pending Visit Status: C ANC (Cancelled) * Provider: Geoff River M.D. Date: 0 08/01/2024 Generated for Jelly recio/Renetta/eTransmitting on: 0 08/18/2024 08:52 AM EDT
--- OUTSIDE RECORDS SUMMARY | 2024-08-15 06:15 | XMS_ITS ---
Author Organization [facility] in [place] Address [address] [place] [address] Care Team Providers Care Soda Column Operator Name Role Phone Smiley NAZARIO, Fidel Primary Care Provider Unavailab Nina Griffin Unavailable [phone] REASON FOR VISIT MD Encounters Encounter Location Date Provider Diagnosis [facility] [address] [place] [address] 08/15/2024 Nina River Plan Of Treatment Next Appt Details Provider Name:Nina River , 08/29/2024 10:30:00 AM, [address] [place] [address], [address], Provider Name:Raghavendra Martins, 06/13/2025 11:00:00 AM, [address] [place] [address], [address], Progress Notes * Ganga MIRANDA LDOB:1960 (64 yo M)Acc No.[id number]:08/15/2024 UNLOCKED PROGRESS NOTE Progress Notes Patient: Ganga LOPEZ Provider: Geoff River M.D. :1960 A ge:64 Y S ex:Male Date:08/15/2024 Address:[address] , [address], [place], [place] Pcp:Fidel Reis MD Subjective: * Chief Complaints: * 1 . MD. * Medical History: Objective: * Vitals: Assessment: Plan: * Treatment: * * Electronic signature of Humberto River MD, [id number] on 08/18/2024 at 08:51 AM EDT Sign off status: Pending Visit Status: C ANC (Cancelled) * Provider: Geoff River M.D. Date: 0 08/15/2024 Generated for Jelly recio/Renetta/eTransmitting on: 0 08/18/2024 08:51 AM EDT
--- OUTSIDE RECORDS SUMMARY | 2024-08-15 10:28 | XMS_ITS ---
Author Name Auto Generated Organization OHIP Care Team Providers Care Emr Trainer Name Role Phone FIDEL ABBOTT Attending Unavailable FIDEL ABBOTT Attending Unavailable FIDEL ABBOTT Attending Unavailable ANGIE CHRISTY Attending Unavailable Jovanny HOFFMAN Attending Unavailable Jovanny HOFFMAN Attending Unavailable Jovanny HOFFMAN Referring Unavailable Jovanny HOFFMAN Attending Unavailable Fidel Abbott Primary Care Unavailable Klaus Brar Attending Unavailable Klaus Brar Admitting Unavailable Nina River Admitting Unavailable Fidel Abbott Primary Care Unavailable Nina River Attending Unavailable Fidel Abbott Primary Care Unavailable Klaus Brar Attending Unavailable Klaus Brar Admitting Unavailable Asael Guerrero Referring Unavailable FIDEL ABBOTT Primary Care Unavailable FIDEL ABBOTT Referring Unavailable FIDEL ABBOTT Primary Care Unavailable PROBLEMS DATE TYPE CONDITION / CODE ATTENDING STATUS [facility] 08/15/2024 Unknown Injury of cauda equina, subsequent encounter / S34.3XXD(ICD-10) [facility] 08/15/2024 Unknown Diabetes mellitu s due to underlying condition with diabetic neuropathy, unspecified / E08.40(ICD-10) [facility] 08/15/2024 Unknown 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 / Z79.4(ICD-10) [facility] 03/14/2024 Unknown Pressure ulcer o f sacral region, stage 4 / L89.154(ICD-10) [facility] 03/14/2024 Unknown Pressure ulcer o f right buttock, stage 4 / L89.314(ICD-10) [facility] 03/14/2024 Unknown Pressure ulcer o f left buttock, stage 4 / L89.324(ICD-10) [facility] 02/08/2024 Unknown Elevated white b lood cell count, unspecified / D72.829(ICD-10) Nina River [facility] PROCEDURES No Procedure Records Found RESULTS COMPLETE BLOOD COUNT AUTO DIFF Collected: 02/08/2024 10:30 AM Status: F Source: [facility] TYPE CODE TESTS RESULT OUT OF RANGE REFERENCE UNITS LAB WBC White Blood Count 10.5 Normal 4.1-10.5 10*3/uL LAB UNWBC Uncorrected WBC 10.5 Normal 4.1-10.5 10*3/uL LAB RBC Red Blood Count 2.91 Low 3.90-5.60 LAB HGB Hemoglobin 7.8 Low 13.0-17.0 g/dL LAB HCT Hematocrit 23.1 Low 38.8-50.0 % LAB MCV Mean Corpuscular Volume 79.5 Low 83.5-101 fL LAB MCH Mean Corpuscular Hemoglobin 26.8 Low 27.5-35.2 pg LAB MCHC Mean Corpuscular HGB Conc 33.7 Normal 32.5-35.6 g/dL LAB RDW Red Cell Distribution Width 15.2 High 12.0-14.8 % LAB PLT Platelet Count 220 Normal 150-450 10*3/uL LAB MPV Mean Platelet Volume 6.7 Normal 6.6-10.1 fL LAB NE% Neutrophils % (Auto) 85.4 . % LAB LY% Lymphocytes % (Auto) 7.0 . % LAB MO% Monocytes % (Auto) 4.8 . % LAB EO% Eosinophils % (Auto) 2.4 . % LAB BA% Basophils % (Auto) 0.4 . % LAB NRBC% NRBC% 0.0 Normal 0-0.5 /100{WBC} LAB NE# Neutrophils # (Auto) 9.0 High 1.8-7.7 10*3/uL LAB LY# Lymphocytes # (Auto) 0.7 Low 1.00-4.8 10*3/uL LAB MO# Monocytes # (Auto) 0.5 Normal 0.0-0.8 10*3/uL LAB EO# Eosinophils # (Auto) 0.2 Normal 0.0-0.45 10*3/uL LAB BA# Basophils # (Auto) 0.0 Normal 0.0-0.2 10*3/uL Performed By: #### FE PRO, B 12, ESR, CRP, CBC, BMP #### [facility] [address] ERYTHROCYTE SEDIMENTATION RATE Collected: 02/08/2024 10:30 AM Status: F Source: [facility] TYPE CODE TESTS RESULT OUT OF RANGE REFERENCE UNITS LAB ESR Erythrocyte Sedimentation Rate 44 High 0-19 Result Comment: PERFORMED BY : [facility] [address] [place] [address] PATHOLOGIST COOKIE MIXER HELPER FARRAH PAUL M.D. Performed By: #### FE PRO, B 12, ESR, CRP, CBC, BMP #### [facility] [address] BASIC METABOLIC PANEL Collected: 2023 10:30 AM Status: F Source: [facility] TYPE CODE TESTS RESULT OUT OF RANGE REFERENCE UNITS LAB GLU Glucose 128 High 70-100 mg/dL Result Comment: Random Gluco se Reference Range is dependent on time and content of last meal. Glucose of more than 200 mg/dL in a nonstressed, ambulatory subject supports the diagnosis of Diabetes Mellitus. ADA recommended reference range LAB BUN Blood Urea Nitrogen 24 Normal 7-25 mg/dL LAB CREATT Creatinine 1.59 High 0.70-1.30 mg/dL LAB GFReNR Estimated GFR 48.779 LAB NA Sodium 138 Normal 136-145 mmol/L LAB K Potassium 4.0 Normal 3.5-5.1 mmol/L LAB CL Chloride 106 Normal 98-107 mmol/L LAB CO2 Carbon Dioxide 26.1 Normal 21.0-31.0 mmol/L LAB GAP Anion Gap 9.9 Normal 6.0-15.0 LAB CA Calcium 7.6 Low 8.6-10.3 mg/dL Performed By: #### FE PRO, B 12, ESR, CRP, CBC, BMP #### [facility] [address] FE PRO Collected: 02/08/2024 10:30 AM Status: F Source: [facility] TYPE CODE TESTS RESULT OUT OF RANGE REFERENCE UNITS LAB FE Iron <10 Low 50-212 ug/dL LAB TIBCT Total Iron Binding Capacity 175 Low 255-450 ug/dL LAB FESAT% % Iron Saturation Test not performed 20-50 LAB TRANS Transferrin 125 Low 203-362 mg/dL LAB BEHZAD Ferritin 422.9 High 23.9-336.2 ng/mL Performed By: #### FE PRO, B 12, ESR, CRP, CBC, BMP #### [address] C-REACTIVE PROTEIN Collected: 4 10:30 AM Status: F Source: [facility] TYPE CODE TESTS RESULT OUT OF RANGE REFERENCE UNITS LAB CRP C-Reactive Protein 10.7 High 0.0-0.5 mg/dL Performed By: #### FE PRO, B 12, ESR, CRP, CBC, BMP #### [facility] [address] [place] [id number] [facility] VITAMIN B12 Collected: 4 10:30 AM Status: F Source: [facility] TYPE CODE TESTS RESULT OUT OF RANGE REFERENCE UNITS LAB B12 Vitamin B12 701 Normal 180-914 pg/mL Result Comment: PERFORMED BY : [place] [address] PATHOLOGIST COOKIE MIXER HELPER FARRAH PAUL M.D. Performed By: #### FE PRO, B 12, ESR, CRP, CBC, BMP #### [facility] [address] [place] [id number] [facility] REMINDERS Observed: 11/15/2023 4:29 PM Status: F Source: [facility] Reminders From: Ama Arteaga To: EU - Recalls Hoffman; Sent: 11/15/2023 16:29:55 EDT Show up: 08/27/2024 16:29:00 EDT Subject: Cysto/UD Due Date/Time: 09/18/2024 16:29:00 EDT Reminder/Recall Patient is due in October 2024 for 1 year cysto/UD w Felicia golden SURGICAL PATHOLOGY Collected: 1:44 PM Status: C Source: [facility] TYPE CODE TESTS RESULT OUT OF RANGE REFERENCE UNITS LAB [id number]&rpt Surgical Pathology Result Comment: [facility] [address] [place] [address] Bone Marrow Consultation Patient Name:JOEL STINSON:1960 (Age: 63)Gender:MTaken:4Reported:4Physician(s):Nina River ([phone])Copy To:Asael Guerrero M.D. Rec. #:[id number]: #[id number] Final Pathologic Diagnosis Bone marrow, aspiration and [...] acquisition are identified on maturing myeloid cells. Glade on the lymphoid population demonstrates a mixed population of phenotypically unremarkable T-cells, polyclonal B-cells, and natural killer cells, without a detectable monoclonal population. No monotypic plasma cell population is identified. Immunophenotyping antibodies tested: CD2, CD3, CD4, CD5, CD7, CD8, CD10, CD13, CD16, CD19, CD20 , CD23, CD33, CD34, CD38, CD43, CD45, CD56, CD117, CD123, CD138, [place], Lambda. Cytoplasmic [place]/CD38, Cytoplasmic Lambda/CD38, and intrinsic VS38 Immunophenotyping Comment: Immunophenotyping has been used in this diagnostic evaluation. This test was developed and its performance characteristics determined by the [facility] Department. It has not been [...] Out Soledad Huynh MD Interpretation performed at [facility], [address] [place] [address], License number: [id number]. Clinical History Leukocytosis. Gross Description 1. Received in B plus fixative labeled ALLOWAY, clot is a friable portion of hemorrhagic material, 2.2 x 1.0 x 0.4 cm in aggregate. The specimen is submitted entirely in a single cassette. (1, ns, [id number], m1) LADONNA 2. Received in B plus fixative labeled ALLOWAY, core is a pale osborne-pardo cylindrical segment of bone with adherent hemorrhagic material, 1.0 cm in length and 0.2 cm in diameter. The specimen is submitted entirely in a single cassette following a period of decalcification in Rapid-Delbert Immuno. (1, ns, [id number], m1) LADONNA Comment: Per epic IR procedure [...] 0 Basophils (0-4%) 0 Monocytes (7-23%) 7.5 lymphocytes (0-2%) 6.5 plasma cells Myeloid/erythroid ratio: 2.4:1 Erythropoiesis: Adequate and normoblastic Myelopoiesis: Adequate with complete maturation and normal morphologic features Megakaryocytes: Adequate with normal morphologic features Lymphocytes: Within normal limits Plasma cells: Within normal limits Other hematopoietic cells: Within normal limits Abnormal cells (e.g. blast cells, metastatic infiltrates): None seen Iron stores: Visible iron stores are increased. There are no ring sideroblasts Cytochemistry: Not performed Summary of flow cytometry: See addendum below BONE MARROW ASPIRATE CLOT/CORE BIOPSY: Aspirate clot: Adequate Adequacy of biopsy core: Adequate Percentage cellularity/pattern: 50% Myeloid:erythroid ratio: 3:1 Morphology/differentiation of hematopoietic lineages: Erythroid: Adequate Myeloid: Complete maturation with normal morphologic features Megakaryocytic: Adequate with normal morphologic features Lymphocytes: Within normal limits. Plasma cells: Increased and focally present in small groups. Abnormal cells or infiltrates: None seen Special stains: Immunostain for CD138 highlights moderate to marked interstitial plasmacytosis. The plasma cells represent approximately 15% of the marrow cells. In situ hybridization for kappa and lambda light chains demonstrates a polyclonal pattern. Bone architecture: Within normal limits Other investigations (e.g. cytogenetics, PCR, FISH, microbiology): Chromosome analysis and MDS FISH pending All special stain controls are reviewed and display appropriate staining. Specimen(s) Received 1: Left iliac clot 2: Left iliac core Fee Codes(s): 1; 53934, 95046, 04020, 94143, 61588, 74676-OS, 24507-UG 2; 29611, 70364, 27901 DNA AND RNA EXTRACT AND HOLD Collected: 10/11/2023 9:30 AM Status: COMPLETED Source: [facility] TYPE CODE TESTS RESULT OUT OF RANGE REFERENCE UNITS LAB EXHR(LOINC) DNA and RNA Extract and Hold SEE COMMENTS 10/14/2023 08:52 AM Result Comment: NOTE Test Result Flag Unit [...] Molecular Hematopathology Laboratory's test catalog, please contact [place] [facility] Inquiry at [phone]. Method summary: DNA and RNA were extracted from the received specimen and stored at -80 C. This test was developed and its performance characteristics determined by [facility] in a manner consistent with CLIA requirements. This test has not been cleared or approved by the U.S. Food and Drug Administration. Test Performed by: [facility] [place] [address] Helix Coil Winder: Rosie Ruby Ph.D.; CLIA# [id number] Performed By: #### KIM, 338 93-9, MDSDF #### [facility] ([id number]) [address] [place] [address] #### 29891-6, PENNY #### [facility] ([id number]) [address] [facility], [address] [place] [address] FLOW CYTOMETRY BM Collected: 10/11/2023 9:30 AM Status: COMPLETED Source: [facility] TYPE CODE TESTS RESULT OUT OF RANGE REFERENCE UNITS LAB LLPB([facility]) FLOW CYTOMETRY BM SEE SEPARATE REPORT, REVIEWED BY PATHOLOGIST Performed By: #### KIM, 338 93-9, MDSDF #### [facility] ([id number]) [address] [place] [address] #### 39510-4, PENNY #### [facility] ([id number]) [address] [facility], [address] [place] [address] BONE MARROW Collected: 10/11/2023 9:30 AM S tatus: COMPLETED Source: [facility] TYPE CODE TESTS RESULT OUT OF RANGE REFERENCE UNITS LAB BONEM(LOINC) BONE MARROW SEE SEPARATE REPORT Result Comment: REVIEWED BY SOLEDAD HUYNH M.D. Performed By: #### KIM, 338 93-9, MDSDF #### [facility] ([id number]) [address] [facility], [place] [address] #### 11708-3, PENNY #### [facility] ([id number]) [address] [place] [address], [address] [place] [address] CHROMOSOME BONE MARROW Collected: 10/11/2023 9: 30 AM Status: COMPLETED Source: [facility] TYPE CODE TESTS RESULT OUT OF RANGE REFERENCE UNITS LAB CBM(LOINC) CHROMOSOME BONE MARROW SEE COMMENTS 10/19/2023 02:37 PM Result Comment: NOTE Test Result Flag Unit RefValue Chromosomes, Hematologic, BM Result Summary Normal Interpretation See Note No clonal abnormality was apparent. Since this conventional chromosome study was successful, MDS, Diag FISH was cancelled per lab protocol (Elder Christie et al., AJCP, 146:86-94, 2016; [facility] MDS Algorithm: www.[facility].com/it-mmfiles/Myelodysplastic_Syndrome_G uideline_to_Diagnosis_and_Follow-up.pdf). Result 46,XY[20] Reason for Referral leukocytosis Specimen Bone Marrow Source Left iliac crest Method Culture without mitogens Banding Method See Note Band Resolution: <400 Stain Name Cells Analyzed Cells Karyograms Counted Prepared GTL 20 0 2 Total 20 0 2 Brown to Stain Name: GTL=G-banding; QFQ=Q-banding; DAPI=DAPI-staining; CBL=C-banding; AGNOR=Silver-staining; NON=Non-banded The sum of Cells Analyzed and Cells Counted equals the total cells examined. Additional Information See Note A portion of the testing process was performed at [facility] site 127705. Released By Tanvi Loo M.D. Test Performed by: [facility] [place] [address] [place] [address] Helix Coil Winder: Rosie Ruby Ph.D.; CLIA# [id number] Performed By: #### EXHR, 338 93-9, MDSDF #### [facility] ([id number]) [address] [place] [address], [place] [address] #### 57641-1, PENNY #### [facility] ([id number]) [address] [place] [address], [address] [place] [address] MYELODYSPLASTIC SYNDROME (MDS),DIAGNOSTIC FISH, VARIES Collected: 10/11/2023 9:30 AM Status: COMPLETED Source: [facility] TYPE CODE TESTS RESULT OUT OF RANGE REFERENCE UNITS LAB MDSDFR([facility]) MYELODYSPLASTIC SYNDROME (MDS),DIAGNOSTIC FISH, VARIES SEE COMMENTS 10/22/2023 08:45 AM Result Comment: NOTE Test Result Flag Unit RefValue MDS, Diagnostic FISH Interpretation TNP MDS, Diagnostic FISH was cancelled on 10/22/2023 at 08:41; Based on other test results additional testing not required. MDS FISH order was cancelled per laboratory protocol (Elder et al., Amer J Clin Pathol 146:86-94, 2016; [facility] MDS Algorithm: www.[facility].com/it-mmfiles/Myelodysplastic_S yndrome_Guideline_ to_Diagnosis_and_Follow-up.pdf) with Probes -RPN1(G)/MECOM(R), -TP53(R)/D17Z1(G), -D8Z2(G)/MYC(R), -N29H353(R)/20QTER(G), -P5O676(G)/EGR1(R), -D7Z1(G)/H6I787(R) Test Performed by: [facility] [address] [place] [address] Helix Coil Winder: Rosie Ruby Ph.D.; CLIA# [id number] Performed By: #### EXHR, 338 93-9, MDSDF #### [facility] ([id number]) [address] [facility], [place] [address] #### 81056-1, BONMAR #### [facility] ([id number]) [address] [place] [address] [address] [place] [address] IR BX AND ASP BONE MARROW SNGL OR MULT Observed: 10/11/2023 8:56 AM Status: COMPLETED Source: [facility] IR BX AND ASP BONE MARROW SN GL OR MULT HISTORY: 63-year-old male with leukocytosis. [...] on the left iliac bone using an [employer] powered bone marrow biopsy system. The [...] biopsy performed under CT guidance. Finalized by Asael Guerrero MD on 10/11/2023 9:49 AM PROTIME AND INR Collected: 10/11/2023 8:00 AM Status: COMPLETED Source: [facility] TYPE CODE TESTS RESULT OUT OF RANGE REFERENCE UNITS LAB PROX(LOINC) PROTIME 14.9 High 9.8-13.2 sec Result Comment: NEW REFERENC E RANGE LAB INR(LOINC) INR 1.3 High 0.8-1.1 Performed By: #### PINR, CBC A #### [facility] ([id number]) [address] [place] [address], [place] [address] CBC AND AUTO DIFF Collected: 10/11/2023 8:00 AM Status: COMPLETED Source: [facility] TYPE CODE TESTS RESULT OUT OF RANGE REFERENCE UNITS LAB WBC(LOINC) WBC COUNT 10.8 4.0-11.0 X10E9/L LAB RBC(LOINC) RBC COUNT 2.66 Low 4.10-5.70 X10E12/L LAB HGB(LOINC) HEMOGLOBIN 6.6 Low Alert 13.0-17.0 g/dL LAB HCT(LOINC) HEMATOCRIT 20.1 Low 39-49 % LAB MCV(LOINC) MCV 76 Low 80-100 fL LAB MCH(LOINC) MCH 24.7 Low 27-34 pg LAB MCHC(LOINC) MCHC 32.6 32-36 g/dL LAB RDW(LOINC) RDW 16.8 High 11.5-15.0 % LAB PLTC(LOINC) PLATELET COUNT 371 150-450 X10E9 /L LAB MPV(LOINC) MPV 7.0 7-12 fL LAB NEUT(LOINC) % NEUTROPHILS 74.1 % LAB LYMP(LOINC) % LYMPHOCYTES 13.0 % LAB MONO(LOINC) % MONOCYTES 8.2 % LAB EOS(LOINC) % EOSINOPHILS 4.4 % LAB BASO(LOINC) % BASOPHILS 0.3 % LAB ANEUT(LOINC) ABSOLUTE NEUTROPHIL 8.0 High 1.5-6.6 X10E9/L LAB ALYMP(LOINC) ABSOLUTE LYMPHOCYTE 1.4 1.0-3.5 X10E9/L LAB AMONO(LOINC) ABSOLUTE MONOCYTE 0.9 0-0.9 X10E9/L LAB AEOS(LOINC) ABSOLUTE EOSINOPHIL 0.5 High 0.0-0.4 X10E9/L LAB ABASO(LOINC) ABSOLUTE BASOPHIL 0.0 0.0-0.2 X10E9/L Performed By: #### PINR, CBC A #### [facility] ([id number]) [address] [place] [address], [place] [address] CONSENT FOR PROCEDURE/SURGERY Observed: 09/17/2023 9:33 AM Status: F Source: [facility] [id number]#1.00TIFF RETAIL - CLINICAL NOTE Observed: 9:33 AM Status: F Source: [facility] [id number]#1.00TIFF LAB REPORTS Observed: 10/08/2022 9:33 AM Status: F Source: [facility] [id number]#1.00TIFF ALLERGIES DATE TYPE / CODE NAME / CODE REACTION SEVERITY SOURCE 02/08/2023 Drug Allergy/416 828855(SNOM ED CT) vancomycin/Y2506816 66(RXNORM) Shut kidneys down Severe (Severity Modifier) (Qualifier Value) [facility] 02/07/2023 Drug Allergy/416 639869(SNOM ED CT) ferrous sulfate/S147120421( RXNORM) Itching Unknown [facility] 01/01/2017 DRUG INGREDI~NON -CBORD/4195 86683(SNOME D CT) VANCOMYCIN Other ( See Comments) [facility] /27542745 6(SNOMED CT) omadacycline [id number] [facility] ENCOUNTERS ADMIT/DISCHARGE ACCOUNT NUMBER ADMITTING ENCOUNTER CLASS LOCATION SOURCE 08/15/2024 [id number] [facility] 07/31/2024/08/01/19 [id number] Ambulatory Building:[facility] EPIC 05/02/2024 [id number] [place]ulatory [place] [facility] 03/14/2024/03/14/20 24 [id number] [facility] 02/08/2024/02/08/20 24 [id number] [facility] 01/20/2024/01/20/20 24 [id number] Ambulatory Building:[facility] EPIC 11/18/2023/11/18/19 24 [id number] Ambulatory Building:[facility] 11/12/2023/11/12/19 24 [id number] Ambulatory [place]:EU T[facility] 11/08/2023/11/08/19 24 [id number] Ambulatory CD:[id number]:CD :[id number] [facility] 10/11/2023/10/11/19 24 [id number] Ambulatory Building:PFM _LAB [facility] 10/11/2023/10/11/19 24 [id number] Ambulatory Building:PF _CT [facility] 10/04/2023 [id number] Ambulatory CD:[id number]:CD :[id number] [facility] 10/09/2022 [id number] Ambulatory [place]:EU [facility] PAYERS ENCOUNTER GUARANTOR PAYER SUBSCRIBER SOURCE 08/15/2024 Joel Donahue [facility] [address] [place] [address]Suk: () Primary Insurance:Jaron WOODSON/BSPolicy Number: [id number] kenyon Date:2024-06-01 Pradip AllowayDOB: [id number] [place] [address]Zqk: (HP) [facility] 08/15/2024 Secondary Insurance:Medicare Policy Number: [id number] Date:2024-06-01 Joel Evans AllowayDOB: [id number] [address] [address]Lbm: (HP) [facility] 08/15/2024 Tertiary Insurance:Self PayPolicy Number: Effective Date:2024-06-01 [facility]24 JOEL Evans ALLOWAYDOB: 9347-01-52HU[address] [address]Vfg: (HP) Primary Insurance:Russelli cy Number: [id number] kenyon Date:2021-11-27 PRADIP ALLOWAYDOB: 0186-04-49NXUJH [address] [place] [address] [facility] 05/02/2024 JOEL ALLOWAYDOB: 6593-28-74XD [address]: (HP) Primary Insurance:Aj arambula Number: [id number] kenyon Date:3299-67-50AB [address] [place] [address]AY: [facility] 05/02/2024 Secondary Insurance:MEDICARE Policy Number: [id number] Date:7782-54-41[address] [address], [place] [address]UA: [facility] 03/14/2024 Joel Evans [id number] [address]Vqi: (HP) Primary Insurance:Jaron WOODSON/BSPolicy Number: [id number] kenyon Date:2023-09-02 Pradip AllowayDOB: [birth year]-01P[address] [place] [address]Tij: () [facility] 03/14/2024 Secondary Insurance:Medicare Policy Number: [id number] Date:2023-09-02 Joel Evans AllowayDOB: [id number] Luciana Donahue [address] [address]Zpv: () [facility] 03/14/2024 Tertiary Insurance:Self PayPolicy Number: Effective Date:2023-09-06 [facility] 02/08/2024 Joel Evans [id number] Luciana [address] [address]Dgu: () Primary Insurance:Jaron WOODSON/BSPolicy Number: [id number] kenyon Date:2024-02-08 Pradip AllowayDOB: [id number] [place] [address]Plx: () [facility] 02/08/2024 Secondary Insurance:Medicare Policy Number: [id number] Date:2024-02-08 Joel Evans AllowayDOB: [id number] [address] [address]Fhe: () [facility] 02/08/2024 Tertiary Insurance:Self PayPolicy Number: Effective Date:2024-02-08 [facility] 01/20/2024 JOEL Evans ALLOWAYDOB: 2352-88-05[address] [address]Qab: () Primary Insurance:CHINTANBSPoli cy Number: [id number] kenyon Date:2021-11-27 PRADIP ALLOWAYDOB: 1959-50-77EQQGE [address] [place] [address] [facility] 01/20/2024 Secondary Insurance:MEDICARE Policy Number: [id number] Date:2279-27-64Rrb n Name:Medicare JOEL Evans ALLOWAYDOB: 7594-27-60HMGVE [address] [address] [facility] 11/18/2023 JOEL Evans ALLOWAYDOB: 3194-95-57DO [address] [place] [address]Tfz: (HP) Primary Insurance:BCBSPoli cy Number: [id number] kenyon Date:2021-11-27 PRADIP ALLOWAYDOB: 8691-97-62QLVCA [address] [place] [address] [facility] 11/18/2023 Secondary Insurance:MEDICARE Policy Number: [id number] Date:4790-11-21Sum n Name:Medicare JOEL Evans ALLOWAYDOB: [id number] [address] [facility] 11/12/2023 JOEL ALLOWAYDOB: 6791-69-07NB [address]: (HP) Primary Insurance:AnthemPo licy Number: [id number] kenyon Date:5348-04-51EV [address] [place] [address]YU: PRADIP [facility] 11/12/2023 Secondary Insurance:MEDICARE Policy Number: [id number] Date:5354-99-91FH [id number] [place] [address]ZX: [facility] 11/08/2023 JOEL ALLOWAYDOB: [id number] [address]: (HP) Primary Insurance:AnthemPo licy Number: [id number] kenyon Date:[id number] [address]XX: PRADIP [facility] 11/08/2023 Secondary Insurance:MEDICARE Policy Number: [id number] ve Date:2616-51-95OZ [address] [address]VY: JOEL EL [facility] 10/11/2023 JOEL Evans ALLOWAYDOB: [id number] [address] [address]Lnz: (HP) Primary Insurance:BLUE ACCESS (PPO)Policy Number: [id number] kenyon Date:2022-11-27 PRADIP ALLOWAYDOB: [id number] [address] [facility] [address] [facility] 10/11/2023 Secondary Insurance:MEDICARE PART A & BPolicy Number: [id number] ve Date:2005-04-29 JOEL Evans ALLOWAYDOB: [id number] [address]Kvw: (HP) [facility] 10/11/2023 JOEL Evans ALLOWAYDOB: [id number] [address] [place] [address]Woc: (HP) Primary Insurance:BLUE ACCESS (PPO)Policy Number: [id number] kenyon Date:2022-11-27 PRAIDP ALLOWAYDOB: [id number] [address] [facility] [address] [facility] 10/11/2023 Secondary Insurance:MEDICARE PART A & BPolicy Number: [id number] ve Date:2005-04-29 JOEL Evans ALLOWAYDOB: [id number] [address]Jec: (HP) [facility]
--- OUTSIDE RECORDS SUMMARY | 2024-08-18 08:51 | XMS_ITS | Encounter Summary ---
Author Organization [facility] Address [address] [place] [address] Care Team Providers Care Beeswax Bleacher Name Role Phone Fidel Reis MD Unavailable Fidel Reis MD Primary Care Provider [phone] Fidel Reis MD Primary Care Provider [phone] Fidel Reis MD Primary Care Provider [phone] Fidel Reis MD Unavailable Alvin Gonzalez MA Unavailable Unavailable Encounter Details Date Type Department Care Team (Late st Contact Info) Description 06/09/2023 Orders Only [facility] [address] [place] [address] Fidel Reis MD [address] [place] [address] Social History Tobacco Use Types Packs/Day Years Used Date Smoking Tobacco: Never Smokeless Tobacco: Never Alcohol Use Standard Drinks/Week Comments Never 0 (1 standard drink = 0.6 oz pur e alcohol) Sex and Gender Information Value Date Recorded Sex Assigned at Not on file Legal Sex Male 7:28 PM EDT Gender Identity Not on file Sexual Orientation Not on file documented as of this encounter Plan of Treatment Upcoming Encounters Date Type Department Care Team (Late st Contact Info) Description 02/01/2025 10:30 AM EST Office Visit [facility] [address] [place] [address] Fidel Reis MD [address] [place] [address] documented as of this encounter Procedures Procedure Name Priority Date/Time Associated Diagnosis Comments SCANNED LABS Routine 06/09/2023 9:26 AM EDT SCANNED LABS Routine 06/09/2023 9:04 AM EDT documented in this encounter Results * SCANNED LABS (06/09/2023 9:26 AM EDT) Fidel Reis MD LAB CHG PERFORMABLES Final Resul t * SCANNED LABS (06/09/2023 9:04 AM EDT) Fidel Reis MD LAB CHG PERFORMABLES Final Resul t documented in this encounter Visit Diagnoses Not on filedocumented in this encounter Care Teams Beeswax Bleacher Relationship Specialty Start Date End Date Fidel Reis MD [address] [place] [address] [facility] Fidel Reis MD [address] [place] [address] PCP - General Family Medicine 05/12/23 08/29/23 Fidel Reis MD [address] [place] [address] PCP - General Family Medicine 08/30/23 08/30/23 Fidel Reis MD [address] [place] [address] PCP - General Family Medicine 11/18/23 Fidel Reis MD [address] [place] [address] PCP - [facility] 05/05/24 Alvin Gonzalez MA Family Medicine 08/08/24 08/15/24 documented as of this encounter
--- OUTSIDE RECORDS SUMMARY | 2024-08-18 08:51 | XMS_ITS | Encounter Summary ---
Author Organization [facility] Address [address] [place] [address] Care Team Providers Care Travel Guide Name Role Phone Fidel Reis MD Unavailable Fidel Reis MD Primary Care Provider [phone] Fidel Reis MD Primary Care Provider [phone] Fidel Reis MD Primary Care Provider [phone] Fidel Reis MD Unavailable Alvin Gonzalez MA Unavailable Unavailable Encounter Details Date Type Department Care Team (Late st Contact Info) Description 06/08/2023 Orders Only [facility] [address] [place] [address] Jonathan Bah, DPM [address] [address] Social History Tobacco Use Types Packs/Day Years [...] Encounters Date Type Department Care Team (Late Contact Info) Description 02/01/2025 10:30 AM EST Office Visit [facility] [address] [place] [address] Fidel Reis MD [address] [place] [address] documented as of this encounter Procedures Procedure Name Priority Date/Time Associated Diagnosis Comments SCANNED LABS Routine 06/08/2023 2:20 PM EDT documented in this encounter Results * SCANNED LABS (06/08/2023 2:20 PM EDT) Jonathan Bah DPM LAB CHG PERFORMABLES Final Result documented in this encounter Visit Diagnoses Not on filedocumented in this encounter Care Teams Travel Guide Relationship Specialty Start Date End Date Fidel Reis MD [address] [place] [address] PCP - [facility] 02/26/23 Fidel Reis MD [address] [place] [address] PCP - General Family Medicine 05/12/23 08/29/23 Fidel Reis MD [address] [place] [address] PCP - General Family Medicine 08/30/23 08/30/23 Fidel Reis MD [address] [place] [address] PCP - General Family Medicine 11/18/23 Fidel Reis MD [address] [place] [address] PCP - [facility] 05/05/24 Alvin Gonzalez MA Family Medicine 08/08/24 08/15/24 documented as of this encounter
--- OUTSIDE RECORDS SUMMARY | 2024-08-18 08:51 | XMS_ITS | Encounter Summary ---
Author Organization [facility] Address [address] [place] [address] Care Team Providers Care Mainspring Strip Gauger Name Role Phone Fidel Reis MD Unavailable Fidel Reis MD Primary Care Provider [phone] Fidel Reis MD Primary Care Provider [phone] Fidel Reis MD Primary Care Provider [phone] Fidel Reis MD Unavailable Alvin Gonzalez MA Unavailable Unavailable Encounter Details Date Type Department Care Team (Late st Contact Info) Description 06/07/2023 Abstract [facility] [address] [place] [address] Jonathan Bah DPM [address] [address] Social History Tobacco Use Types [...] 10:30 AM EST Office Visit [facility] [address] [place] [address] Fidel Reis MD [address] [place] [address] documented as of this encounter Visit Diagnoses Not on filedocumented in this encounter Care Teams Mainspring Strip Gauger Relationship Specialty Start Date End Date Fidel Reis MD [address] [place] [address] PCP - [facility] 02/26/23 Fidel Reis MD [address] [place] [address] PCP - General Family Medicine 05/12/23 08/29/23 Fidel Reis MD [address] [place] [address] PCP - General Family Medicine 08/30/23 08/30/23 Fidel Reis MD [address] [place] [address] PCP - General Family Medicine 11/18/23 Fidel Reis MD [address] [place] [address] PCP - [facility] 05/05/24 Alvin Gonzalez MA Family Medicine 08/08/24 08/15/24 documented as of this encounter
--- OUTSIDE RECORDS SUMMARY | 2024-08-18 08:52 | XMS_ITS | Encounter Summary ---
Author Organization [facility] Address [address] [place] [address] Care Team Providers Care Rougher Merchant Mill Name Role Phone Fidel Reis MD Unavailable Fidel Reis MD Primary Care Provider [phone] Fidel Reis MD Primary Care Provider [phone] Fidel Reis MD Primary Care Provider [phone] Fidel Reis MD Unavailable Alvin Gonzalez MA Unavailable Unavailable Encounter Details Date Type Department Care Team (Late st Contact Info) Description 07/23/2023 Orders Only [facility] [address] [place] [address] Fidel Reis MD [address] [place] [address] Social History Tobacco Use Types Packs/Day Years [...] 02/01/2025 10:30 AM EST Office Visit [facility] [address] [place] [address] Fidel Reis MD [address] [place] [address] documented as of this encounter Procedures Procedure Name Priority Date/Time Associated Diagnosis Comments SCANNED LABS Routine 07/23/2023 8:27 AM EDT documented in this encounter Results * SCANNED LABS (07/23/2023 8:27 AM EDT) Fidel Reis MD LAB CHG PERFORMABLES Final Resul t documented in this encounter Visit Diagnoses Not on filedocumented in this encounter Care Teams Rougher Merchant Mill Relationship Specialty Start Date End Date Fidel Reis MD [address] [place] [address] [facility] 02/26/23 Fidel Reis MD [address] [place] [address] PCP - General Family Medicine 05/12/23 08/29/23 Fidel Reis MD [address] [place] [address] PCP - General Family Medicine 08/30/23 08/30/23 Fidel Reis MD [address] [place] [address] PCP - General Family Medicine 11/18/23 Fidel Reis MD [address] [place] [address] PCP - [facility] 05/05/24 Alvin Gonzalez MA Family Medicine 08/08/24 08/15/24 documented as of this encounter
--- OUTSIDE RECORDS SUMMARY | 2024-08-18 08:52 | XMS_ITS | Encounter Summary ---
Author Organization [facility] Address [address] [place] [address] Care Team Providers Care Boring Machine Set Up Operator Name Role Phone Fidel Reis MD Unavailable Fidel Reis MD Primary Care Provider [phone] Fidel Reis MD Unavailable Alvin Gonzalez MA Unavailable Unavailable Reason for Visit * Reason Comments Med Refill Encounter Details Date Type Department Care Team (Late st Contact Info) Description 06/17/2024 [facility] [address] [place] [address] Fidel Reis MD [address] [place] [address] Primary hypertension (CMS/HCC); Dyslipidemia (CMS/HCC) Social History Tobacco Use Types Packs/Day Years Used Date Smoking Tobacco: Never Smokeless Tobacco: Never Alcohol Use Standard Drinks/Week Comments Never 0 (1 standard drink = 0.6 oz pur e alcohol) B1300 Health Literacy Answer Date Recor ded How often do you need to hav e someone help you when you read instructions, pamphlets, or other written material from your doctor or pharmacy? Never 10/17/2023 Social Connection and Isolat ion Panel [NHANES] Answer Date Recorded In a typical week, how many times do you talk on the phone with family, friends, or neighbors? More than three times a week 10/17/2023 How often do you get togethe r with friends or relatives? More than three times a week 10/17/2023 How often do you attend [facility] or jewish services? Patient declined 10/17/2023 Do you belong to any clubs o r organizations such as yazidism groups, unions, fraternal or athletic groups, or school groups? No 10/17/2023 How often do you attend meet ings of the clubs or organizations you belong to? Never 10/17/2023 Are you , , di vorced, , never , or living with a partner? 10/17/2023 AUDIT-C Answer Date Recorded Q1: How often do you have a drink containing alcohol? Patient declined 10/17/2023 Q2: How many drinks containi ng alcohol do you have on a typical day when you are drinking? Patient does not drink Q3: How often do you have si x or more drinks on one occasion? Never 10/17/2023 Overall Financial Resource Strain (CARDIA) Answe r Date Recorded How hard is it for you to pa y for the very basics like food, housing, medical care, and heating? Not hard at all 10/17/2023 [facility] Occupat ional Health - Occupational Stress Questionnaire Answer Date Recorded Do you feel stress - tense, restless, nervous, or anxious, or unable to sleep at night because your mind is troubled all the time - these days? Patient declined 10/17/2023 Exercise Vital Sign Answer Date Recorde d On average, how many days pe r week do you engage in moderate to strenuous exercise (like a brisk walk)? Patient declined On average, how many minutes do you engage in exercise at this level? Patient declined 10/17/2023 Hunger Vital Sign Answer Date Recorded Within the past 12 months, y ou worried that your food would run out before you got the money to buy more. Never true 10/17/19 24 Within the past 12 months, t he food you bought just didn't last and you didn't have money to get more. Never true 10/17/2023 PRAPARE - Transportation Answer Date Re corded In the past 12 months, has l ack of transportation kept you from medical appointments or from getting medications? No 09/27 In the past 12 months, has l ack of transportation kept you from meetings, work, or from getting things needed for daily living? No 10/17/2023 Housing Stability Vital Sign Answer Med e Recorded In the last 12 months, was t here a time when you were not able to pay the mortgage or rent on time? No 10/17/2023 In the past 12 months, how m any times have you moved where you were living? 0 10/17/2023 At any time in the past 12 m [facility], were you homeless or living in a senior living (including now)? No 10/17/2023 Sex and Gender Information Value Date Recorded Sex Assigned at Not on file Legal Sex Male 7:28 PM EDT Gender Identity Not on file Sexual Orientation Not on file documented as of this encounter Miscellaneous Notes * Telephone Encounter - AMRIK MEHTA - 06/19/2024 8:25 AM EDT MEDICATION SENT TO [facility] documented in this encounter Plan of Treatment Upcoming Encounters Date Type Department Care Team (Late st Contact Info) Description 02/01/2025 10:30 AM EST Office Visit [facility] [address] [place] [address] Fidel Reis MD [address] [place] [address] documented as of this encounter Visit Diagnoses Diagnosis Primary hypertension (CMS/HCC) Unspecified essential hypertension Dyslipidemia (CMS/HCC) Other and unspecified hyperlipidemia documented in this encounter Care Teams Boring Machine Set Up Operator Relationship Specialty Start Date End Date Fidel Reis MD [address] [place] [address] PCP - [facility] 02/26/23 Fidel Reis MD [address] [place] [address] PCP - General Family Medicine 11/18/23 Fidel Reis MD [address] [place] [address] PCP - [facility] 05/05/24 Alvin Gonzalez MA Family Medicine 08/08/24 08/15/24 documented as of this encounter
--- OUTSIDE RECORDS SUMMARY | 2024-08-18 08:52 | XMS_ITS | Encounter Summary ---
Author Organization [facility] Address [address] [place] [address] Care Team Providers Care Steamblaster Name Role Phone Fidel Reis MD Unavailable Fidel Reis MD Primary Care Provider [phone] Fidel Reis MD Primary Care Provider [phone] Fidel Reis MD Primary Care Provider [phone] Fidel Reis MD Unavailable Alvin Gonzalez MA Unavailable Unavailable Encounter Details Date Type Department Care Team (Late st Contact Info) Description 06/17/2023 Abstract [facility] [address] [place] [address] Jonathan Bah DPM [address] [address] Social History Tobacco Use Types [...] [facility] [address] [place] [address] Fidel Reis MD [address] [place] [address] documented as of this encounter Visit Diagnoses Not on filedocumented in this encounter Care Teams Steamblaster Relationship Specialty Start Date End Date Fidel Reis MD [address] [place] [address] PCP - [facility] 02/26/23 Fidel Reis MD [address] [place] [address] PCP - General Family Medicine 05/12/23 08/29/23 Fidel Reis MD [address] [place] [address] PCP - General Family Medicine 08/30/23 08/30/23 Fidel Reis MD [address] [place] [address] PCP - General Family Medicine 11/18/23 Fidel Reis MD [address] [place] [address] PCP - [facility] 05/05/24 Alvin Gonzalez MA Family Medicine 08/08/24 08/15/24 documented as of this encounter
--- OUTSIDE RECORDS SUMMARY | 2024-08-18 08:52 | XMS_ITS | Encounter Summary ---
Author Organization [facility] Address [address] [place] [address] Care Team Providers Care Biomedical Engineering Professor Name Role Phone Fidel Reis MD Unavailable Fidel Reis MD Primary Care Provider [phone] Fidel Reis MD Primary Care Provider [phone] Fidel Reis MD Primary Care Provider [phone] Fidel Reis MD Unavailable Alvin Gonzalez MA Unavailable Unavailable Encounter Details Date Type Department Care Team (Late st Contact Info) Description 06/17/2023 Orders Only [facility] [address] [place] [address] Fidel Reis MD [address] [place] [address] Social History Tobacco Use Types Packs/Day Years [...] 02/01/2025 10:30 AM EST Office Visit [facility] [address] [place] [address] Fidel Reis MD [address] [place] [address] documented as of this encounter Procedures Procedure Name Priority Date/Time Associated Diagnosis Comments WOUND CULTURE Routine 06/16/2023 11:04 AM EDT documented in this encounter Results * Wound culture (06/16/2023 11:04 AM EDT) Swab Fidel Reis MD LAB MICROBIOLOGY - GENERAL ORDER LUZ ELENA Final Result documented in this encounter Visit Diagnoses Not on filedocumented in this encounter Care Teams Biomedical Engineering Professor Relationship Specialty Start Date End Date Fidel Reis MD [address] [place] [address] PCP - [facility] 02/26/23 Fidel Reis MD [address] [place] [address] PCP - General Family Medicine 05/12/23 08/29/23 Fidel Reis MD [address] [place] [address] PCP - General Family Medicine 08/30/23 08/30/23 Fidel Reis MD [address] [place] [address] PCP - General Family Medicine 11/18/23 Fidel Reis MD [address] [place] [address] PCP - [facility] 05/05/24 Alvin Gonzalez MA Family Medicine 08/08/24 08/15/24 documented as of this encounter
--- OUTSIDE RECORDS SUMMARY | 2024-08-18 08:52 | XMS_ITS | Encounter Summary ---
Author Organization [facility] Address [address] [place] [address] Care Team Providers Care Field Operations Technician Name Role Phone Fidel Reis MD Unavailable Fidel Reis MD Primary Care Provider [phone] Fidel Reis MD Unavailable Alvin Gonzalez MA Unavailable Unavailable Encounter Details Date Type Department Care Team (Late st Contact Info) Description 03/06/2024 Clinisync Result Encounter [facility] External Department Unsolicited Provider, Generic External Data Social History Tobacco Use Types Packs/Day Years [...] week 10/17/2023 How often do you attend chur ch or hoahaoism services? Patient declined 10/17/2023 Do you belong to any clubs o r organizations such as faith groups, unions, fraternal or athletic groups, or [...] and heating? Not hard at all 10/17/2023 [facility] of Occupat ional Health - Occupational Stress [...] any time in the past 12 m [facility], were you homeless or living in a skilled nursing (including now)? No 10/17/2023 Sex and Gender [...] Visit [facility] [address] [place] [address] Fidel Reis MD [address] [place] [address] documented as of this encounter Procedures Procedure Name Priority Date/Time Associated Diagnosis Comments SEGMENTAL BLOOD PRESSURE 03/06/2024 2:13 PM EST documented in this encounter Results * SEGMENTAL BLOOD PRESSURE (03/06/2024 2:13 PM EST) Anatomical Region Laterality Modality Radiographic Ashley ging 03/06/2024 2:13 PM EST Narrative 03/06/2024 2:16 [place] [address] Vein Report Signed Patient: JOEL MIRANDA MR#: [id number] : 1960 Acct:[id number] Age/Sex: 63 / M ADM Date: 03/06/24 Loc: [facility] Attending Dr: Jesus Bahena D.P.M. Ordering Physician: Jesus Bahena D.P.M. Date of Service: 03/06/24 Procedure(s): VC SEGMENTAL PRESSURES Accession Number(s): [id number] cc: Jesus Bahena D.P.M.; Fidel Reis M.D. The [address] [address] Patient Name: JOEL MIRANDA MRN: [id number] date: 1960 Sex: M Assigned Patient Location: VC Current Patient Location: VC Accession/Order Number: [id number] Exam Date: 03/06/2024 11:00 Report Date: 03/06/2024 14:13 At the request of: JESUS BAHENA Procedure: VC SEGMENTAL PRESSURES EXAM: VC SEGMENTAL PRESSURES HISTORY: R09.89 peripheral vascular disease COMPARISON: None TECHNIQUE: Resting ABIs and segmental limb pressures were obtained. FINDINGS: ABIs are nondiagnostic due to vascular rigidity. Bilateral toe-brachial indices are normal. Based upon waveform analysis the likelihood of significant vascular disease is low. VEIN/VC SEGMENTAL PRESSURES IMPRESSION: Nondiagnostic ABIs due to vascular rigidity. However, normal toe-brachial indices and biphasic waveforms. The likelihood of significant vascular disease is low. Electronically authenticated by: Rafaela SMITH Date: 03/06/2024 14:13 Dictated By: Rafaela Smith M.D. Signed By: 03/06/24 1416 DD/ 1413 TD/TT: Pr Specialist: Procedure Note Radiology, Radiologist, MD - 03/06/2024 [place] [address] Vein Report Signed Patient: JOEL MIRANDA LMR#: [id number] : 1960cct:[id number] Age/Sex: 63 / MADM Date: 03/06/24 Loc: VC Attending Dr: Jesus Bahena D.P.M. Ordering Physician: Jesus Bahena D.P.M. Date of Service: 03/06/24 Procedure(s): VC SEGMENTAL PRESSURES Accession Number(s): [id number] cc: Jesus Bahena D.P.M.; Fidel Reis M.D. The [place] [id number] Patient Name: JOEL MIRANDA MRN: [id number] date: 1960 Sex: M Assigned Patient Location: Current Patient Location: VC Accession/Order Number: [id number] Exam Date: 03/06/2024 11:00 Report Date: 03/06/2024 14:13 At the request of: PETER HIGHLANDER Procedure: VC SEGMENTAL PRESSURES EXAM: VC SEGMENTAL PRESSURES HISTORY: R09.89 peripheral vascular disease COMPARISON: None TECHNIQUE: Resting ABIs and segmental limb pressures were obtained. FINDINGS: ABIs are nondiagnostic due to vascular rigidity. Bilateral toe-brachial indices are normal. Based upon waveform analysis thelikelihood of significant vascular disease is low. VEIN/VC SEGMENTAL PRESSURES IMPRESSION: Nondiagnostic ABIs due to vascular rigidity. However, normal toe-brachial indices and biphasic waveforms. The likelihood of significant vasculardisease is low. Electronically authenticated by: Rafaela SMITH Date: 03/06/2024 14:13 Dictated By: Rafaela Smith M.D. Signed By:03/06/24 1416 DD/ 1413 TD/TT: Pr Specialist: us Generic External Data Provider IMG XR PROCEDURES Final Result documented in this encounter Visit Diagnoses Not on filedocumented in this encounter Care Teams Field Operations Technician Relationship Specialty Start Date End Date Fidel Reis MD [address] [place] [address] [facility] Fidel Reis MD [address] [place] [address] PCP - General Family Medicine 11/18/23 Fidel Reis MD [address] [place] [address] PCP - [facility] 05/05/24 Alvin Gonzalez MA Family Medicine 08/08/24 08/15/24 documented as of this encounter
--- OUTSIDE RECORDS SUMMARY | 2024-08-18 08:52 | XMS_ITS | Encounter Summary ---
Author Organization [facility] Address [address] [place] [address] Care Team Providers Care Information Engineer Name Role Phone Fidel Reis MD Unavailable Fidel Reis MD Primary Care Provider [phone] Fidel Reis MD Unavailable Alvin Gonzalez MA Unavailable Unavailable Reason for Visit * Reason Comments Med Refill Encounter Details Date Type Department Care Team (Late st Contact Info) Description 07/01/2024 [facility] [address] [place] [id number] Fidel Reis MD [address] [place] [phone] Pruritus; Primary hypertension (CMS/HCC); Dyslipidemia (CMS/HCC); Type 2 diabetes mellitus with hyperglycemia, without long-term current use of insulin ([facility]) Social History Tobacco Use Types Packs/Day Years [...] often do you attend chur ch or mormonism services? Patient declined 10/17/2023 Do you belong to any clubs o r organizations such as baptist groups, unions, fraternal or athletic groups, or [...] and heating? Not hard at all 10/17/2023 [facility] - Occupational Stress [...] any time in the past 12 m [facility], were you homeless or living in a half-way (including now)? No 10/17/2023 Sex and Gender Information Value Date Recorded Sex Assigned at Not on file Legal Sex Male 7:28 PM EDT Gender Identity Not on file Sexual Orientation Not on file documented as of this encounter Miscellaneous Notes * Telephone Encounter - AMRIK MEHTA - 07/03/2024 1:05 PM EDT MEDICATION SENT TO [facility] documented in this encounter Plan of Treatment Upcoming Encounters Date Type Department Care Team (Late st Contact Info) Description 02/01/2025 10:30 AM EST Office Visit [facility] [address] [place] [address] Fidel Reis MD [address] [place] [phone] documented as of this encounter Visit Diagnoses Diagnosis Pruritus Unspecified pruritic disorder Primary hypertension (CMS/HCC) Unspecified essential hypertension Dyslipidemia (CMS/HCC) Other and unspecified hyperlipidemia Type 2 diabetes mellitus with hyperglycemia, without long-term current use of insulin (CMS/HCC) documented in this encounter Care Teams Information Engineer Relationship Specialty Start Date End Date Fidel Reis MD [address] [place] [phone] PCP - [employer] 02/26/23 Fidel Reis MD [address] [place] [address] PCP - General Family Medicine 11/18/23 Fidel Reis MD [address] [place] [address] PCP - [facility] 05/05/24 Alvin Gonzalez MA Family Medicine 08/08/24 08/15/24 documented as of this encounter
--- OUTSIDE RECORDS SUMMARY | 2024-08-18 08:52 | XMS_ITS | Encounter Summary ---
Author Organization [facility] tem Address [id number] [address] [place] [address] Care Team Providers Care Telegraphic Service Dispatcher Name Role Phone Fidel Reis MD Primary Care Provider [phone] Encounter Details Date Type Department Care Team (Late st Contact Info) Description 10/11/2023 Telephone [facility] [address] [place] [address] Milly Kaur, RENETTA Social History Tobacco Use Types Packs/Day Years Used Date Smoking Tobacco: Never Smokeless Tobacco: Never Alcohol Use Standard Drinks/Week Comments Never 0 (1 standard drink = 0.6 oz pur e alcohol) Childcare Answer Date Recorded Childcare Unknown 09/07/2018 Employment Answer Date Recorded Employment Unknown 09/07/2018 Purpose - Life Answer Date Recorded Purpose and direction in life Unknown Sex and Gender Information Value Date Recorded Sex Assigned at Not on file Legal Sex Male 11:25 AM EDT Gender Identity Not on file Sexual Orientation Not on file documented as of this encounter Plan of Treatment Not on file documented as of this encounter Visit Diagnoses Not on filedocumented in this encounter Care Teams Telegraphic Service Dispatcher Relationship Specialty Start Date End Date Fidel Reis MD PCP - General 12/28/16 documented as of this encounter
--- OUTSIDE RECORDS SUMMARY | 2024-08-18 08:52 | XMS_ITS | Clinical Summary ---
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 Active doxycycline 100 mg ORAL tabletIndication s:Paraplegia (HCC),Disturbanc e of skin sensation Take 100 mg by mouth twice daily. Active metFORMIN 500 mg ORAL tabletIndication s:Paraplegia (HCC),Disturbanc e of skin sensation Take 500 mg by mouth twice daily with meals. Active naproxen 500 mg ORAL tabletIndication s:Paraplegia (HCC),Disturbanc e of skin sensation Take 500 mg by mouth once daily. Active atenolol 100 mg ORAL tabletIndication s:Paraplegia (HCC),Disturbanc e of skin sensation Take 100 mg by mouth once daily. Active tamsulosin (FLOMAX) 0.4 mg ORAL [id number]: Paraplegia (HCC),Disturbanc e of skin sensation Take 0.4 mg by mouth once daily. Active nitrofurantoin (MACRODANTIN) 50 mg ORAL capsuleIndicatio ns:Paraplegia (HCC),Disturbanc e of skin sensation Take 50 mg by mouth four times daily. Active lisinopril 20 mg ORAL tabletIndication s:Paraplegia (HCC),Disturbanc e of skin sensation Take 20 mg by mouth once daily. Active citalopram (CELEXA) 20 mg ORAL tabletIndication s:Paraplegia (HCC),Disturbanc e of skin sensation Take 20 mg by mouth once daily. Active amLODIPine (NORVASC) 5 mg ORAL tabletIndication s:Paraplegia (HCC),Disturbanc e of skin sensation Take 5 mg by mouth once daily. Active glimepiride 2 mg ORAL tabletIndication s:Paraplegia (HCC),Disturbanc e of skin sensation Take 2 mg by mouth daily with breakfast. Active Social History Tobacco Use Types Packs/Day Years Used Date Smoking Tobacco: Never Assessed Sex and Gender Information Value Date Recorded Sex Assigned at Not on file Legal Sex Male 10:01 AM EST Gender Identity Not on file Sexual Orientation Not on file Last Filed Vital Signs Vital Sign Reading Time Taken Comments Blood Pressure 151/66 2011 1:06 PM EDT Pulse 95 2011 1:06 PM EDT Temperature - - Respiratory Rate - - Oxygen Saturation - - Inhaled Oxygen Concentration - - Weight - - Height - - Body Mass Index - - Plan of Treatment Health Maintenance Due Date Last Done Comments Anxiety Screening 07/08/1979 Depression Screening 07/08/1979 HIV Screening 07/08/1979 Hepatitis C Screening 07/08/1979 DTaP,Tdap,Td Vaccine (1 - Tdap) [address] Colonography 2006 Cologuard (FIT-DNA) 2006 Colonoscopy 2006 Colorectal Cancer Screening 2006 Diabetes Screening 2006 Fecal Occult Blood 2006 Prostate Cancer Screening Discussion 2006 Sigmoidoscopy 2006 Pneumococcal Vaccine: 50+ (1 of 1 - PCV) 07/08/2011 Shingrix Vaccine (1 of 2) 07/08/2011 Covid-19 Vaccine ( - 2023- season) 2023 Influenza Vaccine (Season Ended) 2024 RSV Vaccine (1 - 1-dose 75+ series) 2036 Insurance MEDICARE O [facility] P[facility] Care Teams Reverberatory Furnace Supervisor Relationship Specialty Start Date End Date Jameel Smith PCP - General Internal Medicine 07/01/11
--- OUTSIDE RECORDS SUMMARY | 2024-08-18 08:52 | XMS_ITS | Patient Health Record ---
Author Organization [facility] in [place] Address [address] [place] [address] Care Team Providers Care Foreclosure Field Inspector Name Role Phone Fidel Reis MD Primary Care Provider Unavailab Nina Griffin Unavailable [phone] Jesus Bahena Unavailable [phone] Raghavendra Martins Unavailable [phone] Allergies Allergen (clinical drug ingredient) Drug/Non Drug Allergy documented on EMR Reaction Allergy Type Onset Date Status vancomycin Vancomycin Renal failure Drug Allergy A ctive Results Component Value Reference Range Notes CBC AUTO DIFF (Not yet revie wed by provider) Interpretation: Performing Lab: Notes/Report: [facility] , White Blood Count 12.1 4.0-11.0 10 3/uL Red Blood Count 2.96 4.70-6.10 10 6/uL Hemoglobin 7.1 14.0-18.0 g/dL Hematocrit 24.0 42.0-54.0 % Mean Corpuscular Volume 81.1 80.0-94.0 fL Mean Corpuscular Hemoglobin 24.0 25.9-34.0 pg Mean Corpuscular HGB Conc 29.6 29.9-35.2 g/dL Red Cell Distribution Width 15.1 11.0-15.0 % Platelet Count 292 150-450 10 3/uL Mean Platelet Volume 8.7 9.5-13.5 fL Neutrophils Percent Auto 70.9 43.0-75.0 % Lymphocytes Percent Auto 15.2 20.5-60.0 % Monocytes Percent Auto 10.1 1.7-12.0 % Eosinophils Percent Auto 3.0 0.9-7.0 % Basophils Percent Auto 0.2 0.2-2.0 % Immature Granulocytes Pct Auto 0.6 0.0-0.5 % Neutrophils Absolute Auto 8.6 1.4-6.5 10 3/uL Lymphocytes Absolute Auto 1.8 1.2-3.8 10 3/uL Monocytes Absolute Auto 1.2 0.3-0.8 10 3/uL Eosinophils Absolute Auto 0.4 0.0-0.7 10 3/uL Basophils Absolute Auto 0.0 0.0-0.1 10 3/uL Immature Granulocytes Abs Auto 0.07 0.00-0.03 10 3/uL Performing Lab: see note ML - [facility] LB Reticulocyte Pct Auto (Not y et reviewed by provider) Interpretation: Performing Lab: Notes/Report: [facility] , Reticulocyte Pct Auto 1.09 0.60-3.10 % Performing Lab: see note ML - [facility] LB IRON AND TIBC (Not yet revie wed by provider) Interpretation: Performing Lab: Notes/Report: [facility] , Iron 32.0 65.0-175.0 ug/dL Total Iron Binding Capacity 179.0 250.0-450.0 ug/dL Percent Iron Saturation 17.9 Performing Lab: see note ML - [facility] LB Erythrocyte Sedimentation Ra te (Not yet reviewed by provider) Interpretation: Performing Lab: Notes/Report: [facility] , Erythrocyte Sedimentation Rate >130 <=20 mm/hr Performing Lab: see note ML - [facility] LB CBC AUTO DIFF (Not yet revie wed by provider) Interpretation: Performing Lab: Notes/Report: [facility] , White Blood Count 13.2 4.0-11.0 10 3/uL Red Blood Count 3.25 4.70-6.10 10 6/uL Hemoglobin 8.1 14.0-18.0 g/dL Hematocrit 26.9 42.0-54.0 % Mean Corpuscular Volume 82.8 80.0-94.0 fL Mean Corpuscular Hemoglobin 24.9 25.9-34.0 pg Mean Corpuscular HGB Conc 30.1 29.9-35.2 g/dL Red Cell Distribution Width 14.0 11.0-15.0 % Platelet Count 317 150-450 10 3/uL Mean Platelet Volume 8.9 9.5-13.5 fL Neutrophils Percent Auto 70.2 43.0-75.0 % Lymphocytes Percent Auto 12.2 20.5-60.0 % Monocytes Percent Auto 7.3 1.7-12.0 % Eosinophils Percent Auto 8.8 0.9-7.0 % Basophils Percent Auto 0.6 0.2-2.0 % Immature Granulocytes Pct Auto 0.9 0.0-0.5 % Neutrophils Absolute Auto 9.3 1.4-6.5 10 3/uL Lymphocytes Absolute Auto 1.6 1.2-3.8 10 3/uL Monocytes Absolute Auto 1.0 0.3-0.8 10 3/uL Eosinophils Absolute Auto 1.2 0.0-0.7 10 3/uL Basophils Absolute Auto 0.1 0.0-0.1 10 3/uL Immature Granulocytes Abs Auto 0.12 0.00-0.03 10 3/uL Performing Lab: see note ML - [facility] LB FERRITIN (Not yet reviewed b y provider) Interpretation: Performing Lab: Notes/Report: [facility] , Ferritin 485.0 26.0-388.0 ng/mL Performing Lab: see note ML - [facility] LB CRP (Not yet reviewed by pro vider) Interpretation: Performing Lab: Notes/Report: [facility] , C Reactive Protein 8.37 <=0.50 mg/dL Performing Lab: see note ML - [facility] LB Type and Screen (Not yet rev iewed by provider) Interpretation: Performing Lab: Notes/Report: [facility] , Blood Type A Negative Antibody Screen NEGATIVE Packed Red Blood Cells (Not yet reviewed by provider) Interpretation: Performing Lab: Notes/Report: Packed Red Blood Cells [id number] AN RC TRANSFUSED 06/08/24 1035 [id number] AN RC TRANSFUSED 06/08/24 1220 CBC AUTO DIFF (Not yet revie wed by provider) Interpretation: Performing Lab: Notes/Report: [facility] , White Blood Count 12.2 4.0-11.0 10 3/uL Red Blood Count 2.71 4.70-6.10 10 6/uL Hemoglobin 6.7 14.0-18.0 g/dL RESULTS FOWLER D TO ANGELICA RUBALCAVA RN at 1047 Hematocrit 22.4 42.0-54.0 % RESULTS CALLED TO ANGELICA RUBALCAVA RN at 1047 Mean Corpuscular Volume 82.7 80.0-94.0 fL Mean Corpuscular Hemoglobin 24.7 25.9-34.0 pg Mean Corpuscular HGB Conc 29.9 29.9-35.2 g/dL Red Cell Distribution Width 15.5 11.0-15.0 % Platelet Count 300 150-450 10 3/uL Mean Platelet Volume 9.0 9.5-13.5 fL Neutrophils Percent Auto 72.6 43.0-75.0 % Lymphocytes Percent Auto 12.9 20.5-60.0 % Monocytes Percent Auto 8.4 1.7-12.0 % Eosinophils Percent Auto 5.5 0.9-7.0 % Basophils Percent Auto 0.3 0.2-2.0 % Immature Granulocytes Pct Auto 0.3 0.0-0.5 % Neutrophils Absolute Auto 8.9 1.4-6.5 10 3/uL Lymphocytes Absolute Auto 1.6 1.2-3.8 10 3/uL Monocytes Absolute Auto 1.0 0.3-0.8 10 3/uL Eosinophils Absolute Auto 0.7 0.0-0.7 10 3/uL Basophils Absolute Auto 0.0 0.0-0.1 10 3/uL Immature Granulocytes Abs Auto 0.04 0.00-0.03 10 3/uL Performing Lab: see note ML - [facility] LB IRON AND TIBC (Not yet revie wed by provider) Interpretation: Performing Lab: Notes/Report: [facility] , Iron 17.0 65.0-175.0 ug/dL Total Iron Binding Capacity 134.0 250.0-450.0 ug/dL Percent Iron Saturation 12.7 Performing Lab: see note ML - [facility] LB CBC AUTO DIFF (Not yet revie wed by provider) Interpretation: Performing Lab: Notes/Report: [facility] , White Blood Count 13.1 4.0-11.0 10 3/uL Red Blood Count 2.79 4.70-6.10 10 6/uL Hemoglobin 6.9 14.0-18.0 g/dL RESULTS FOWLER D TO KRZYSZTOF FREED RN Hematocrit 22.9 42.0-54.0 % RESULTS CALLED TO KRZYSZTOF FREED RN Mean Corpuscular Volume 82.1 80.0-94.0 fL Mean Corpuscular Hemoglobin 24.7 25.9-34.0 pg Mean Corpuscular HGB Conc 30.1 29.9-35.2 g/dL Red Cell Distribution Width 15.3 11.0-15.0 % Platelet Count 292 150-450 10 3/uL Mean Platelet Volume 8.9 9.5-13.5 fL Neutrophils Percent Auto 75.8 43.0-75.0 % Lymphocytes Percent Auto 10.2 20.5-60.0 % Monocytes Percent Auto 8.1 1.7-12.0 % Eosinophils Percent Auto 5.1 0.9-7.0 % Basophils Percent Auto 0.4 0.2-2.0 % Immature Granulocytes Pct Auto 0.4 0.0-0.5 % Neutrophils Absolute Auto 9.9 1.4-6.5 10 3/uL Lymphocytes Absolute Auto 1.3 1.2-3.8 10 3/uL Monocytes Absolute Auto 1.1 0.3-0.8 10 3/uL Eosinophils Absolute Auto 0.7 0.0-0.7 10 3/uL Basophils Absolute Auto 0.1 0.0-0.1 10 3/uL Immature Granulocytes Abs Auto 0.05 0.00-0.03 10 3/uL Performing Lab: see note ML - [facility] LB ECG 12 lead (Not yet reviewe d by provider) Interpretation: Performing Lab: Notes/Report: Source Facility: [place] [address] [place] [address] Electrocardiograph Report Signed Patient: JOEL STINSON MR#: [id number] : 1960 Acct:[id number] Age/Sex: 63 / M ADM Date: 03/10/24 Loc: PST Attending Dr: Jesus Bahena D.P.M. Ordering Physician: Jesus Bahena D.P.M. Date of Service: 03/10/24 Procedure(s): ECG 12 lead Accession Number(s): [id number] cc: [facility] Test Date: 2024-03-10 Pat Name: JOEL STINSON Department: Room: - Gender: Male [place]: : 1960 Requested By: JESUS BAHENA Order Number: [id number] Reading MD: AVELINO ORTEGA Measurements Intervals [place] Rate: 53 P: 86 AR: 179 QRS: 8 QRSD: 110 T: 34 QT: 451 QTc: 425 Interpretive Statements SINUS BRADYCARDIA Compared to ECG 11/25/2022 10:12:24 Sinus rhythm no longer present Electronically Signed On 03-10-2024 17:24:37 EST by AVELINO ORTEGA Dictated By: Avelino Ortega D.O. Signed By: 03/10/241723 DD/ 1037 TD/TT: Machine Engineer: [place] [address] Electrocardiograph Report Signed Patient: TOBIAS STINSON MR#: [id number] : 1960 Acct:[id number] Age/Sex: 63 / M ADM Date: 03/10/24 Loc: PST Attending Dr: Jesus Bahena D.P.M. Ordering Physician: Jesus Bahena D.P.M. Date of Service: 03/10/24 Procedure(s): ECG 12 lead Accession Number(s): [id number] cc: [facility] Test Date: 2024-03-10 Pat Name: JOEL STINSON Department: 60 Room: - Gender: Male [place]: : 1960 Requested By: JESUS BAHENA Order Number: [id number] Reading MD: AVELINO ORTEGA Measurements Intervals [place] Rate: 53 P: 86 AR: 179 QRS: 8 QRSD: 110 T: 34 QT: 451 QTc: 425 Interpretive Statements SINUS BRADYCARDIA Compared to ECG 11/25/2022 10:12:24 Sinus rhythm no long er present Electronically Suzy d On 03-10-2024 17:24:37 EST by AVELINO ORTEGA Dictated By: Avelino Ortega D.O. Signed By: 03/10/241723 DD/ 1037 TD/TT: Machine Engineer: PROF ROXANA Samuel (CELIA MARCUS) (Not yet reviewed by provider) Interpretation: Performing Lab: Notes/Report: [facility] , Sodium 141 136-145 mmol/L Potassium 4.2 3.5-5.1 mmol/L Chloride 106 98-107 mmol/L Carbon Dioxide 26.2 21.0-32.0 mmol/L Anion Gap 13.0 Glucose 87 74-106 mg/dL Blood Urea Nitrogen 35.0 7.0-18.0 mg/dL Creatinine 2.33 0.70-1.30 mg/dL Estimated GFR ( Randi 35 >=60 mL/min/1.73m 2 Estimated GFR (Non- Selene 29 >=60 mL/min/1.73m 2 BUN Creatinine Ratio 15.0 Calcium 8.7 8.5-10.1 mg/dL Performing Lab: see note ML - [facility] LB VC SEGMENTAL PRESSURES (Not yet reviewed by provider) Interpretation: Performing Lab: Notes/Report: Source Facility: [place] [address] Vein Report Signed Patient: JOEL STINSON MR#: [id number] : 1960 Acct:[id number] Age/Sex: 63 / M ADM Date: 03/06/24 Loc: VC Attending Dr: Jesus Bahena D.P.M. Ordering Physician: Jesus Bahena D.P.M. Date of Service: 03/06/24 Procedure(s): VC SEGMENTAL PRESSURES Accession Number(s): [id number] cc: Jesus Bahena D.P.M.; Fidel Reis M.D. [place] [address] Patient Name: JOEL STINSON MRN: [id number] date: 1960 Sex: M Assigned Patient Location: VC Current Patient Location: VC Accession/Order Number: [id number] Exam Date: 03/06/2024 11:00 Report Date: 03/06/2024 [...] disease is low. Electronically authenticated by: Rafaela WRIGHT Date: 03/06/2024 14:13 Dictated By: Rafaela Wright M.D. Signed By: 03/06/24 1416 DD/ 12 TD/TT: Machine Engineer: [place] [address] Vein Report Signed Patient: TOBIAS STINSON MR#: [id number] : 1960 Acct:[id number] Age/Sex: 63 / M ADM Date: 03/06/24 Loc: VC Attending Dr: Jesus Bahena D.P.M. Ordering Physician: Jesus Bahena D.P.M. Date of Service: 03/06/24 Procedure(s): VC SEGMENTAL PRESSURES Accession Number(s): [id number] cc: Jesus Bahena D.P.M.; Fidel Reis M.D. [place] [address] Patient Name: JOEL STINSON MRN: [id number] date: 1960 Sex: M Assigned Patient Location: Current Patient Location: Accession/Order Numb er: [id number] Exam Date: 11:00 Report Date: 03/06/2024 14:13 At the request of: JESUS BAHENA Procedure: VC SEGMEN SUKUMAR PRESSURES EXAM: VC SEGMENTAL PRESSURES HISTORY: R09.89 peripheral vascular disease COMPARISON: None TECHNIQUE: Resting A BIs and segmental limb pressures were obtained. FINDINGS: ABIs are nondiagnostic due to vascular rigidity. Bilateral toe-brachial indices are normal. Based upon waveform analysis the likelihood of significant vascular disease is low. VEIN/VC SEGMENTAL PRESSURES IMPRESSION: Nondiagnostic ABIs d ue to vascular rigidity. However, normal toe-brachial indices and biphasic waveforms. The likelihood of significant vascular disease is low. Electronically authenticated by: Rafaela WRIGHT Date: 03/06/2024 14:13 Dictated By: Rafaela Wright M.D. Signed By: 03/06/241415 DD/ 12 TD/TT: Machine Engineer: Vitamin B12 (Not yet reviewe d by provider) Interpretation: Performing Lab: Notes/Report: [facility] , Vitamin B12 [phone] pg/mL Performed at: [facility] [address] [id number] Executive Creative Director: Tejinder Wheeler PhD, Phone: [phone] Performing Lab: see note - [facility] LB Erythrocyte Sedimentation Ra te (Not yet reviewed by provider) Interpretation: Performing Lab: Notes/Report: [facility] , Erythrocyte Sedimentation Rate 67 <=20 mm/hr Performing Lab: see note ML - [facility] LB IRON AND TIBC (Not yet revie wed by provider) Interpretation: Performing Lab: Notes/Report: [facility] , Iron 28.0 65.0-175.0 ug/dL Total Iron Binding Capacity 124.0 250.0-450.0 ug/dL Percent Iron Saturation 22.6 Performing Lab: see note ML - [facility] LB FERRITIN (Not yet reviewed b y provider) Interpretation: Performing Lab: Notes/Report: [facility] , Ferritin 772.0 26.0-388.0 ng/mL Performing Lab: see note ML - [facility] LB CRP (Not yet reviewed by pro vider) Interpretation: Performing Lab: Notes/Report: [facility] , C Reactive Protein 15.33 <=0.50 mg/dL Performing Lab: see note ML - [facility] LB PROF CHEM 8 (BAS METB) (Not yet reviewed by provider) Interpretation: Performing Lab: Notes/Report: [facility] , Sodium 138 136-145 mmol/L Potassium 3.8 3.5-5.1 mmol/L Chloride 104 98-107 mmol/L Carbon Dioxide 30.3 21.0-32.0 mmol/L Anion Gap 7.5 Glucose 193 74-106 mg/dL Blood Urea Nitrogen 34.0 7.0-18.0 mg/dL Creatinine 1.33 0.70-1.30 mg/dL Estimated GFR ( Randi >60 >=60 Estimated GFR (Non- Selene 54 >=60 BUN Creatinine Ratio 25.6 Calcium 8.6 8.5-10.1 mg/dL Performing Lab: see note ML - [facility] LB IRON AND TIBC (Not yet revie wed by provider) Interpretation: Performing Lab: Notes/Report: [facility] , Iron 30.0 65.0-175.0 ug/dL Total Iron Binding Capacity 191.0 250.0-450.0 ug/dL Percent Iron Saturation 15.7 Performing Lab: see note ML - [facility] LB FERRITIN (Not yet reviewed b y provider) Interpretation: Performing Lab: Notes/Report: [facility] , Ferritin 476.0 26.0-388.0 ng/mL Performing Lab: see note ML - [facility] LB CRP (Not yet reviewed by pro vider) Interpretation: Performing Lab: Notes/Report: [facility] , C Reactive Protein 6.23 <=0.50 mg/dL Performing Lab: see note ML - [facility] LB CBC AUTO DIFF (Not yet revie wed by provider) Interpretation: Performing Lab: Notes/Report: [facility] , White Blood Count 10.3 4.0-11.0 10 3/uL Red Blood Count 3.56 4.70-6.10 10 6/uL Hemoglobin 9.0 14.0-18.0 g/dL Hematocrit 29.4 42.0-54.0 % Mean Corpuscular Volume 82.6 80.0-94.0 fL Mean Corpuscular Hemoglobin 25.3 25.9-34.0 pg Mean Corpuscular HGB Conc 30.6 29.9-35.2 g/dL Red Cell Distribution Width 16.8 11.0-15.0 % Platelet Count 280 150-450 10 3/uL Mean Platelet Volume 8.8 9.5-13.5 fL Neutrophils Percent Auto 68.5 43.0-75.0 % Lymphocytes Percent Auto 17.7 20.5-60.0 % Monocytes Percent Auto 6.7 1.7-12.0 % Eosinophils Percent Auto 6.4 0.9-7.0 % Basophils Percent Auto 0.3 0.2-2.0 % Immature Granulocytes Pct Auto 0.4 0.0-0.5 % Neutrophils Absolute Auto 7.1 1.4-6.5 10 3/uL Lymphocytes Absolute Auto 1.8 1.2-3.8 10 3/uL Monocytes Absolute Auto 0.7 0.3-0.8 10 3/uL Eosinophils Absolute Auto 0.7 0.0-0.7 10 3/uL Basophils Absolute Auto 0.0 0.0-0.1 10 3/uL Immature Granulocytes Abs Auto 0.04 0.00-0.03 10 3/uL Performing Lab: see note ML - [facility] LB Erythrocyte Sedimentation Ra te (Not yet reviewed by provider) Interpretation: Performing Lab: Notes/Report: [facility] , Erythrocyte Sedimentation Rate >130 <=20 mm/hr Performing Lab: see note ML - [facility] LB PROF 14(COMP METB) (Not yet reviewed by provider) Interpretation: Performing Lab: Notes/Report: [facility] , Sodium 137 136-145 mmol/L Potassium 4.3 3.5-5.1 mmol/L Chloride 104 98-107 mmol/L Carbon Dioxide 28.7 21.0-32.0 mmol/L Anion Gap 8.6 Glucose 180 74-106 mg/dL Blood Urea Nitrogen 30.0 7.0-18.0 mg/dL Creatinine 1.44 0.70-1.30 mg/dL Estimated GFR ( Randi >60 >=60 Estimated GFR (Non- Selene 50 >=60 BUN Creatinine Ratio 20.8 Calcium 8.5 8.5-10.1 mg/dL Bilirubin Total 0.2 0.2-1.0 mg/dL Aspartate Amino Transferase 15 15-37 U/L Alanine Aminotransferase 17 16-63 U/L Alkaline Phosphatase 101 46-116 U/L Total Protein 7.7 6.4-8.2 g/dL Albumin Level 2.0 3.4-5.0 g/dL Globulin 5.7 Albumin Globulin Ratio 0.4 Performing Lab: see note ML - [facility] LB FERRITIN (Not yet reviewed b y provider) Interpretation: Performing Lab: Notes/Report: [facility] , Ferritin 370.0 26.0-388.0 ng/mL Performing Lab: see note ML - [facility] LB CRP (Not yet reviewed by pro vider) Interpretation: Performing Lab: Notes/Report: [facility] , C Reactive Protein 5.68 <=0.50 mg/dL Performing Lab: see note ML - [facility] LB CBC AUTO DIFF (Not yet revie wed by provider) Interpretation: Performing Lab: Notes/Report: [facility] , White Blood Count 9.8 4.0-11.0 10 3/uL Red Blood Count 3.49 4.70-6.10 10 6/uL Hemoglobin 8.5 14.0-18.0 g/dL Hematocrit 28.8 42.0-54.0 % Mean Corpuscular Volume 82.5 80.0-94.0 fL Mean Corpuscular Hemoglobin 24.4 25.9-34.0 pg Mean Corpuscular HGB Conc 29.5 29.9-35.2 g/dL Red Cell Distribution Width 16.7 11.0-15.0 % Platelet Count 252 150-450 10 3/uL Mean Platelet Volume 8.4 9.5-13.5 fL Neutrophils Percent Auto 67.5 43.0-75.0 % Lymphocytes Percent Auto 19.9 20.5-60.0 % Monocytes Percent Auto 7.1 1.7-12.0 % Eosinophils Percent Auto 4.8 0.9-7.0 % Basophils Percent Auto 0.3 0.2-2.0 % Immature Granulocytes Pct Auto 0.4 0.0-0.5 % Neutrophils Absolute Auto 6.6 1.4-6.5 10 3/uL Lymphocytes Absolute Auto 2.0 1.2-3.8 10 3/uL Monocytes Absolute Auto 0.7 0.3-0.8 10 3/uL Eosinophils Absolute Auto 0.5 0.0-0.7 10 3/uL Basophils Absolute Auto 0.0 0.0-0.1 10 3/uL Immature Granulocytes Abs Auto 0.04 0.00-0.03 10 3/uL Performing Lab: see note ML - [facility] LB Type and Screen (Not yet rev iewed by provider) Interpretation: Performing Lab: Notes/Report: [facility] , Blood Type A Negative Antibody Screen NEGATIVE Packed Red Blood Cells (Not yet reviewed by provider) Interpretation: Performing Lab: Notes/Report: Packed Red Blood Cells [id number] ON RC TRANSFUSED 10/12/23 1208 [id number] ON RC TRANSFUSED 10/12/23 1337 CBC AUTO DIFF (Not yet revie wed by provider) Interpretation: Performing Lab: Notes/Report: [facility] , White Blood Count 11.0 4.0-11.0 10 3/uL Red Blood Count 2.75 4.70-6.10 10 6/uL Hemoglobin 6.7 14.0-18.0 g/dL RESULTS FOWLER D TO MARTI DESIR/RN IN INFUSION Hematocrit 22.2 42.0-54.0 % RESULTS CALLED TO MARTI DESIR/RENETTA IN INFUSION Mean Corpuscular Volume 80.7 80.0-94.0 fL Mean Corpuscular Hemoglobin 24.4 25.9-34.0 pg Mean Corpuscular HGB Conc 30.2 29.9-35.2 g/dL Red Cell Distribution Width 15.6 11.0-15.0 % Platelet Count 324 150-450 10 3/uL Mean Platelet Volume 8.7 9.5-13.5 fL Neutrophils Percent Auto 74.6 43.0-75.0 % Lymphocytes Percent Auto 13.7 20.5-60.0 % Monocytes Percent Auto 6.8 1.7-12.0 % Eosinophils Percent Auto 4.3 0.9-7.0 % Basophils Percent Auto 0.2 0.2-2.0 % Immature Granulocytes Pct Auto 0.4 0.0-0.5 % Neutrophils Absolute Auto 8.2 1.4-6.5 10 3/uL Lymphocytes Absolute Auto 1.5 1.2-3.8 10 3/uL Monocytes Absolute Auto 0.8 0.3-0.8 10 3/uL Eosinophils Absolute Auto 0.5 0.0-0.7 10 3/uL Basophils Absolute Auto 0.0 0.0-0.1 10 3/uL Immature Granulocytes Abs Auto 0.04 0.00-0.03 10 3/uL Performing Lab: see note ML - [facility] LB MYELO DYSPL SYNDROME (MDS), DIAGNOSTIC FISH, VARIES (Not yet reviewed by provider) Interpretation: Performing Lab:[facility], [address] [place] [address] , [place]. [address] PH:[phone] Notes/Report: MYELODYSPLASTIC SYNDROME (MDS),DIAGNOSTIC FISH, VARIES SEE COMMENTS 10/22/2023 08:45 AM NOTE Test Result Flag Unit RefValue MDS, Diagnostic FISH Interpretation TNP MDS, Diagnostic FISH was cancelled on 10/22/2023 at 08:41; Based on other test results additional testing not required. MDS FISH order was cancelled per laboratory protocol (Elder et al., Amer J Clin Pathol 146:86-94, 2016; [facility] MDS Algorithm: www.[facility] [email or web address].com/it-mmfiles/Enzo lodysplastic_S yndrome_Guideline_ to_Diagnosis_and_Follow -up.pdf) with Probes -RPN1(G)/MECOM(R), -TP53(R)/D17Z1(G), -D8Z2(G)/MYC(R), -V44Y245(R)/20QTER(G), -L0G811(G)/EGR1(R), -D7Z1(G)/W3C150(R) Test Performed by: [place] [address] Executive Creative Director: Rosie Ruby Ph.D.; CLIA# [id number] PERFORMED AT [address] [place] [address] DNA AND RNA EXTRACT AND HOLD (Not yet reviewed by provider) Interpretation: Performing Lab:[facility], [address] [place] [address]. [facility] PH:[phone] Notes/Report: DNA and RNA Extract and Hold SEE COMMENTS 10/14/2023 08:52 AM NOTE Test Result Flag Unit RefValue DNA and RNA Extract and Hold Specimen Type EDTA BONE MARROW DNA/RNA Extract and Hold Result see method DNA/RNA Extraction Performed WILLIE TIONAL INFORMATION ------- DNA and total RNA were extracted from the sample and will be stored cryopreserved for 1 year from the extraction date. To request specific molecular test(s) from the [facility]'s test catalog, please contact [facility] at [phone]. Method summary: DNA and RNA were extracted from the received specimen and stored at -80 C. This test was developed and its performance characteristics determined by [facility] in a manner consistent with CLIA requirements. This test has not been cleared or approved by the U.S. Food and Drug Administration. Test Performed by: [place] [address] Executive Creative Director: Rosie Ruby Ph.D.; CLIA# [id number] PERFORMED AT [address] [place] [address] Flow Cytometry Bone Marrow ( Not yet reviewed by provider) Interpretation: Performing Lab:[facility] ([facility]), [address] [place] [address]., [address] [address] PH:[phone] Notes/Report: FLOW CYTOMETRY BM SEE SEPARATE REPORT, REVIEWED BY PATHOLOGIST PERFORMED AT [address] [address] Surgical Pathology ([facility]) (Not yet reviewed by provider) Interpretation: Performing Lab:[facility] ([facility]), [address] [place], [place] [address]E., [address] [address] PH:[phone] Notes/Report: [facility] [address] [place] [id number] Bone Marrow Consultation Patient Name:JOEL STINSON:1960 (Age: 63)Gender:MTaken: 024Reported:[facility] ysician(s):Nina River ([phone])Copy To:Khadar Guerrero M.D. Rec. #:[id number]: #[id number] Final Pathologic Diagnosis Bone marrow, aspiration and [...] acquisition are identified on maturing myeloid cells. Gunter on the lymphoid population demonstrates a mixed population of phenotypically unremarkable T-cells, polyclonal B-cells, and natural killer cells, without a detectable monoclonal population. No monotypic plasma cell population is identified. Immunophenotyping antibodies tested: CD2, CD3, CD4, CD5, CD7, CD8, CD10, CD13, CD16, CD19, CD20 , CD23, CD33, CD34, CD38, CD43, CD45, CD56, CD117, CD123, CD138, Black, Lambda. Cytoplasmic Black/CD38, Cytoplasmic Lambda/CD38, and intrinsic VS38 Immunophenotyping Comment: Immunophenotyping has been used in this diagnostic evaluation. This test was developed and its performance characteristics determined by the [facility]. It has not been [...] Out Soledad Huynh MD Interpretation performed at [facility], [address] [place] [address], License number: [id number]. Clinical History Leukocytosis. Gross Description 1. Received in B plus fixative labeled ALLOWAY, clot is a friable portion of hemorrhagic material, 2.2 x 1.0 x 0.4 cm in aggregate. The specimen is submitted entirely in a single cassette. (1, ns, [id number], m1) LADONNA 2. Received in B plus fixative labeled ALLOWAY, core is a pale osborne-pardo cylindrical segment of bone with adherent hemorrhagic material, 1.0 cm in length and 0.2 cm in diameter. The specimen is submitted entirely in a single cassette following a period of decalcification in Rapid-Delbert Immuno. (1, ns, [id number], m1) LADONNA Comment: Per epic IR procedure [...] Aspirate smear/aspirate clot/core bx PERIPHERAL BLOOD SMEAR: Morphology/interpretati on: The neutrophilic leukocytes consist of bands and [...] Adequate Percentage cellularity/pattern: 50% Myeloid:erythroid ratio: 3:1 Morphology/differentiat ion of hematopoietic lineages: Erythroid: Adequate Myeloid: Complete [...] 2: Left iliac core Fee Codes(s): 1; 23268, 35572, 22752, 45449, 57287, 81761-ZY, 67315-XH 2; 52527, 34394, 13995 The copy-to physician of this order is KHADAR Suarez BONE MARROW (Not yet reviewe d by provider) Interpretation: Performing Lab:[facility] ([facility]), [address], [place]. [address] PH:[phone] Notes/Report: BONE MARROW SEE SEPARATE REPORT REVIEWED BY SOLEDAD HUYNH M.D. PERFORMED AT [facility] [address],[place] [address] CHROMOSOME BONE MARROW (Not yet reviewed by provider) Interpretation: Performing Lab:[facility], [address] [place]. [address] PH:[phone] Notes/Report: CHROMOSOME BONE MARROW SEE COMMENTS 09/27 02:37 PM NOTE Test Result Flag Unit RefValue Chromosomes, Hematologic, BM Result Summary Normal Interpretation See Note No clonal abnormality was apparent. Since this conventional chromosome study was successful, MDS, Diag FISH was cancelled per lab protocol (Elder Christie et al., AJCP, 146:86-94, 2016; [facility] MDS Algorithm: [email or web address] [email or web address] [email or web address]-[email or web address]). Result 46,XY(20) Reason for Referral leukocytosis Specimen Bone Marrow [...] of the testing process was performed at [facility] site [id number]. Released By Tanvi Loo M.D. Test Performed by: [facility] - [address] [address] Executive Creative Director: Rosie Ruby Ph.D.; CLIA# [id number] PERFORMED AT [address] [place] [address] Erythropoietin (EPO), Serum (Not yet reviewed by provider) Interpretation: Performing Lab: Notes/Report: [facility] , Erythropoietin (EPO), Serum 29.7 2.6-18.5 mIU/mL xCloud DxI 800 Immunoassay System Values obtained with different assay methods or kits cannot be used interchangeably. Results cannot be interpreted as absolute evidence of the presence or absence of malignant disease. Performed at: [address] [id number] Executive Creative Director: Tejinder Wheeler PhD, Phone: [phone] Performing Lab: see note [facility] LB PROF CHEM 8 (BAS METB) (Not yet reviewed by provider) Interpretation: Performing Lab: Notes/Report: [facility] , Sodium 138 136-145 mmol/L Potassium 3.7 3.5-5.1 mmol/L Chloride 104 98-107 mmol/L Carbon Dioxide 25.9 21.0-32.0 mmol/L Anion Gap 11.8 Glucose 93 74-106 mg/dL Blood Urea Nitrogen 24.0 7.0-18.0 mg/dL Creatinine 1.57 0.70-1.30 mg/dL Estimated GFR ( Randi 55 >=60 Estimated GFR (Non- Selene 45 >=60 BUN Creatinine Ratio 15.3 Calcium 8.7 8.5-10.1 mg/dL Performing Lab: see note ML - [facility] LB IRON AND TIBC (Not yet revie wed by provider) Interpretation: Performing Lab: Notes/Report: [facility] , Iron 16.0 65.0-175.0 ug/dL Total Iron Binding Capacity 160.0 250.0-450.0 ug/dL Percent Iron Saturation 10.0 Performing Lab: see note ML - [facility] LB FERRITIN (Not yet reviewed b y provider) Interpretation: Performing Lab: Notes/Report: [facility] , Ferritin 657.0 26.0-388.0 ng/mL Performing Lab: see note ML - [facility] LB Erythrocyte Sedimentation Ra te (Not yet reviewed by provider) Interpretation: Performing Lab: Notes/Report: [facility] , Erythrocyte Sedimentation Rate 90 <=20 mm/hr Performing Lab: see note ML - [facility] LB PROF CHEM 8 (BAS METB) (Not yet reviewed by provider) Interpretation: Performing Lab: Notes/Report: [facility] , Sodium 141 136-145 mmol/L Potassium 4.1 3.5-5.1 mmol/L Chloride 106 98-107 mmol/L Carbon Dioxide 25.7 21.0-32.0 mmol/L Anion Gap 13.4 Glucose 149 74-106 mg/dL Blood Urea Nitrogen 28.0 7.0-18.0 mg/dL Creatinine 1.62 0.70-1.30 mg/dL Estimated GFR ( Randi 53 >=60 Estimated GFR (Non- Selene 43 >=60 BUN Creatinine Ratio 17.3 Calcium 8.5 8.5-10.1 mg/dL Performing Lab: see note ML - [facility] LB IRON AND TIBC (Not yet revie wed by provider) Interpretation: Performing Lab: Notes/Report: [facility] , Iron 16.0 65.0-175.0 ug/dL Total Iron Binding Capacity 170.0 250.0-450.0 ug/dL Percent Iron Saturation 9.4 Performing Lab: see note ML - [facility] LB FERRITIN (Not yet reviewed b y provider) Interpretation: Performing Lab: Notes/Report: [facility] , Ferritin 561.0 26.0-388.0 ng/mL Performing Lab: see note ML - [facility] LB CBC AUTO DIFF (Not yet revie wed by provider) Interpretation: Performing Lab: Notes/Report: [facility] , White Blood Count 13.0 4.0-11.0 10 3/uL Red Blood Count 2.84 4.70-6.10 10 6/uL Hemoglobin 7.1 14.0-18.0 g/dL Hematocrit 23.7 42.0-54.0 % RESULTS CALLED TO MARTI GARAY/RN@BY Radha Clarke at 1406 Mean Corpuscular Volume 83.5 80.0-94.0 fL Mean Corpuscular Hemoglobin 25.0 25.9-34.0 pg Mean Corpuscular HGB Conc 30.0 29.9-35.2 g/dL Red Cell Distribution Width 14.6 11.0-15.0 % Platelet Count 324 150-450 10 3/uL Mean Platelet Volume 8.7 9.5-13.5 fL Neutrophils Percent Auto 75.6 43.0-75.0 % Lymphocytes Percent Auto 13.9 20.5-60.0 % Monocytes Percent Auto 6.3 1.7-12.0 % Eosinophils Percent Auto 3.5 0.9-7.0 % Basophils Percent Auto 0.2 0.2-2.0 % Immature Granulocytes Pct Auto 0.5 0.0-0.5 % Neutrophils Absolute Auto 9.8 1.4-6.5 10 3/uL Lymphocytes Absolute Auto 1.8 1.2-3.8 10 3/uL Monocytes Absolute Auto 0.8 0.3-0.8 10 3/uL Eosinophils Absolute Auto 0.5 0.0-0.7 10 3/uL Basophils Absolute Auto 0.0 0.0-0.1 10 3/uL Immature Granulocytes Abs Auto 0.06 0.00-0.03 10 3/uL Performing Lab: see note ML - [facility] LB PROF CHEM 8 (BAS METB) (Not yet reviewed by provider) Interpretation: Performing Lab: Notes/Report: [facility] , Sodium 139 136-145 mmol/L Potassium 5.0 3.5-5.1 mmol/L Chloride 109 98-107 mmol/L Carbon Dioxide 20.3 21.0-32.0 mmol/L Anion Gap 14.7 Glucose 197 74-106 mg/dL Blood Urea Nitrogen 35.0 7.0-18.0 mg/dL Creatinine 1.94 0.70-1.30 mg/dL Estimated GFR ( Randi 43 >=60 mL/min/1.73m 2 Estimated GFR (Non- Selene 35 >=60 mL/min/1.73m 2 BUN Creatinine Ratio 18.0 Calcium 8.8 8.5-10.1 mg/dL Performing Lab: see note ML - [facility] LB Erythrocyte Sedimentation Ra te (Not yet reviewed by provider) Interpretation: Performing Lab: Notes/Report: [facility] , Erythrocyte Sedimentation Rate 92 <=20 mm/hr Performing Lab: see note ML - [facility] LB PROF CHEM 8 (BAS METB) (Not yet reviewed by provider) Interpretation: Performing Lab: Notes/Report: [facility] , Sodium 136 136-145 mmol/L Potassium 3.8 3.5-5.1 mmol/L Chloride 103 98-107 mmol/L Carbon Dioxide 26.5 21.0-32.0 mmol/L Anion Gap 10.3 Glucose 243 74-106 mg/dL Blood Urea Nitrogen 30.0 7.0-18.0 mg/dL Creatinine 2.12 0.70-1.30 mg/dL Estimated GFR ( Randi 38 >=60 mL/min/1.73m 2 Estimated GFR (Non- Selene 32 >=60 mL/min/1.73m 2 BUN Creatinine Ratio 14.2 Calcium 8.7 8.5-10.1 mg/dL Performing Lab: see note ML - [facility] LB IRON AND TIBC (Not yet revie wed by provider) Interpretation: Performing Lab: Notes/Report: [facility] , Iron 18.0 65.0-175.0 ug/dL Total Iron Binding Capacity 140.0 250.0-450.0 ug/dL Percent Iron Saturation 12.9 Performing Lab: see note ML - [facility] LB FERRITIN (Not yet reviewed b y provider) Interpretation: Performing Lab: Notes/Report: [facility] , Ferritin 622.0 26.0-388.0 ng/mL Performing Lab: see note ML - [facility] LB CBC AUTO DIFF (Not yet revie wed by provider) Interpretation: Performing Lab: Notes/Report: [facility] , White Blood Count 13.8 4.0-11.0 10 3/uL Red Blood Count 2.81 4.70-6.10 10 6/uL Hemoglobin 7.3 14.0-18.0 g/dL Hematocrit 23.4 42.0-54.0 % RESULTS CALLED TO ANGELICA RUBALCAVA RN Mean Corpuscular Volume 83.3 80.0-94.0 fL Mean Corpuscular Hemoglobin 26.0 25.9-34.0 pg Mean Corpuscular HGB Conc 31.2 29.9-35.2 g/dL Red Cell Distribution Width 14.3 11.0-15.0 % Platelet Count 319 150-450 10 3/uL Mean Platelet Volume 8.9 9.5-13.5 fL Neutrophils Percent Auto 74.5 43.0-75.0 % Lymphocytes Percent Auto 11.5 20.5-60.0 % Monocytes Percent Auto 8.2 1.7-12.0 % Eosinophils Percent Auto 5.0 0.9-7.0 % Basophils Percent Auto 0.4 0.2-2.0 % Immature Granulocytes Pct Auto 0.4 0.0-0.5 % Neutrophils Absolute Auto 10.3 1.4-6.5 10 3/uL Lymphocytes Absolute Auto 1.6 1.2-3.8 10 3/uL Monocytes Absolute Auto 1.1 0.3-0.8 10 3/uL Eosinophils Absolute Auto 0.7 0.0-0.7 10 3/uL Basophils Absolute Auto 0.1 0.0-0.1 10 3/uL Immature Granulocytes Abs Auto 0.06 0.00-0.03 10 3/uL Performing Lab: see note ML - [facility] LB Reason For Referral No Information Medications Medication SIG (Take, Route, Frequency, Duration) Notes Start Date End Date Status hydrOXYzine HCl 50 MG TAKE 1 TABLET BY M OUT 4 TIMES DAILY NEEDED FOR ITCHING Oral for 8 Days Active glipiZIDE 10 MG 1 tablet 30 minutes before breakfast Orally Once a day Active Citalopram Hydrobromide 40 MG 0.5 tablet Orally Once a day Active Atorvastatin Calcium 40 MG Oral for 30 Days Active Atenolol 100 MG 1 tablet Orally Once a day Active amLODIPine Besylate 10 MG 1 tablet Orall y Once a day Active Lisinopril 20 MG 1 tablet Orally Once a day Active Januvia 100 MG 1 tablet Orally Once a day Active Immunizations Vaccine Route Administration Date Status Comme nts Flu, Fluarix (00182) 6 mos a nd older, single-dose (2259-2159) Unknown 02/11/2023 Administered Social History Tobacco Use: Social History Observation Description Date Details (start date - stop date) Never Smoker NA - NA Tobacco Control (Standard) Question Answer Notes Tobacco use: Nonsmoker Problems Problem Type SNOMED Code ICD Code Onset Dates Problem Status W/U Status Risk Notes Problem 560882979 Anemia, unspecified (D64.9) Active confirmed Problem Foot ulcer due to type 2 diabetes mellitus (1393489027389) Type 2 diabetes mellitus with foot ulcer (E11.621) Active confirmed Problem Chronic ulcer of foot (323120930) Non-pressure chronic ulcer of left heel and midfoot with fat layer exposed (L97.422) Active confirmed Problem Obesity (513262528) Obesity (E66.9) Active confirmed Problem Hypertension (98429949) HTN (hypertension) (I10) Active confirmed Problem Obstructive sleep apnea syndrome (45940941) JAE (obstructive sleep apnea) (G47.33) Active confirmed Problem Neurogenic bladder (523931994) Neurogenic bladder (N31.9) Active confirmed Problem Iron deficiency anemia (17099722) Iron deficiency anemia (D50.9) Active confirmed Problem Leukocytosis (848639201) Leukocytosis (D72.829) Active confirmed Problem Skin ulcer associated with diabetes mellitus (844628161) DM type 2 causing leg or foot ulcer (E11.622) Active confirmed Problem Paraplegia (64584002) Paraplegic spinal paralysis (G82.20) Active confirmed Problem Leukocytosis (815050506) Elevated WBCs (D72.829) Active confirmed Problem Chronic paraplegia (978166770) Chronic paraplegia (G82.20) Active confirmed Problem Chronic ulcer of foot (434139836) Non-pressure chronic ulcer of right heel and midfoot with fat layer exposed (L97.412) Active confirmed Problem Skin ulcer of right knee with fat layer exposed (L97.812) Active confirmed Problem Pressure injury of right heel stage II (disorder) (04340470154378) Decubitus ulcer of right heel, stage 2 (L89.612) Active confirmed Problem Malnutrition of moderate degree (Oswald: 60% to less than 75% of standard weight) (78885876) Moderate protein malnutrition (E44.0) Active confirmed Problem Stasis edema with ulcer of both lower extremities (I87.313) Active confirmed Problem Chronic ulcer of ankle (246211898) Non-pressure chronic ulcer of right ankle with other specified severity (L97.318) Active confirmed Problem Non-pressure chronic ulcer of left heel and midfoot with other specified severity (L97.428) Active confirmed Problem Non-pressure chronic ulcer of other part of left foot with other specified severity (L97.528) Active confirmed Problem Non-pressure chronic ulcer of other part of right lower leg with other specified severity (L97.818) Active confirmed Problem Ankle ulcer (770296141) Ischemic ulcer of right 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 (L97.312) Active confirmed Problem Pressure injury of right ankle, stage 2 (L89.512) Active confirmed Vital Signs Heart Rate 72 /min 06/21/2024 Weight reported by patient Temperature 97.0 degrees Fahrenheit 06/21/2024 Weig ht reported by patient Respiratory Rate 18 /min 06/21/2024 Weight repo rted by patient Blood pressure diastolic 75 mm Hg 06/21/2024 Vijay ght reported by patient Oximetry 98 % 06/21/2024 Weight reported by patient Height 71 in 06/21/2024 Weight reported by patient Blood pressure systolic 153 mm Hg 06/21/2024 Weig ht reported by patient Weight 225.0 lbs 06/21/2024 Weight reported by patient BMI 31.38 kg/m2 06/21/2024 Weight reported by patient Encounters Encounter Location Date Provider Diagnosis Pul[facility] [address] [place] [address] 06/21/2024 Raghavendra Eliezer JAE (obstructive sleep apnea) G47.33 ; Chronic paraplegia G82.20 and Obesity E66.9 [facility] OUT[facility]IENT [address] [place] [address] 03/16/2024 Jesus Bahena [facility] [address] [facility] [place] [address] 08/31/2023 Nina River [facility] [address] [facility] [address] 10/12[facility] [address] [facility] [place] [address] 10/26/2023 Nina River [facility] [address] [facility] [address] 12/07/2023 [facility] [address] [facility] [place] [address] 02/15/2024 [facility] [address] [place] [address] 05/30/2024 Nina River [facility] [address] [facility] [address] 12/13/2023 Raghavendra [facility] Pulmonary [facility] [address] [facility] [address] 12/27/2023 [facility] Pulmonary [facility] [address] [facility] [address] 02/28/2024 Raghavendra [facility] (PODIATRY) [address] [place] [address] 03/16/2024 Jesus [facility] [place] (PODIATRY) [address] [address] 03/16/2024 [facility] Pulmonary [facility] [address] [facility] [address] 04/17/2024 [facility] Assessments Encounter Date Diagnosis (ICD Code) Assessment Notes Treatment Notes Treatment Clinical Notes Section Notes 06/21/2024 JAE (obstructive sleep apnea) (ICD-10 - G47.33) Mmem-bi-dqzf encounter performed with the patient to document continued need for PAP therapy. -DME: JVU-Xscrx-qcljn study 03/14/2021: AHI 79; Titration: CPAP 94hfQ7P, though BiPAP also used during the study-Compliance was reviewed from 05/20/2024 - 06/18/2024-Total days used: (100%)-Total of all days >4 hours of use: 30 (100%)-Current model, mode, & pressure(s): AirSense 11 AutoSet CPAP 16gqO6Q-Tiysisqt AHI: 13.7-Median air leak: 34.6L/min-Mask/harn ess fitting: Okay even with julien-Sleep quality: Wakes up once a night d/t pain-Daytime hypersomnolence: Not waking up feeling refreshed in the morning-Recommendat ions: He has superb compliance, but AHI is suboptimal @ 13.7 (goal <5). This is despite the patient losing 25# since last visit. Previously was on BiPAP and more recently CPAP 04hlD7V. Currently at 30dhH1C. Discussed several options including increasing pressure to 94ydQ0I or changing to an auto-CPAP. Patient voiced he would be okay with either option. Will try auto-CPAP to start 10-09mcH5B - if unable to do so, will change pressure to 91ofY5U and recheck compliance in 1 month. He was counseled to continue using it every night and with naps.-This yfam-mw-sqoy visit comes with the recommendation that the [...] uremic leon. No change to soaps, detergents, farmworker field crop, body wash, etc. Diphenhydramine and hydroxyzine did not help. Question ferrous sulfate - this was the most recent change to his regimen, and there are case reports of itching/rashes associated with it. I strongly suggested he discuss this with Dr. River and/or his PCP, or referral to an orthophoto tech/draftsman. Plan Of Treatment Pending Test Test Name Order Date CHROMOSOME BONE MARROW 10/11/2023 BONE MARROW 10/11/2023 Surgical Pathology ([facility]) Flow Cytometry Bone Marrow 10/11/2023 DNA AND RNA EXTRACT AND HOLD 10/11/2023 CBC AUTO DIFF 09/29/2023 CBC AUTO DIFF 10/12/2023 CBC AUTO DIFF 10/26/2023 CBC AUTO DIFF 07/22/2023 CBC AUTO DIFF 07/27/2023 CBC AUTO DIFF 08/31/2023 CBC AUTO DIFF 12/02/2023 CBC AUTO DIFF 03/10/2024 CBC AUTO DIFF 05/30/2024 CBC AUTO DIFF 06/06/2024 CBC AUTO DIFF 08/10/2024 CRP 05/30/2024 CRP 02/14/2024 CRP 10/26/2023 CRP 12/02/2023 CRP 07/22/2023 FERRITIN 08/31/2023 FERRITIN 09/29/2023 FERRITIN 12/02/2023 FERRITIN 02/14/2024 FERRITIN 10/26/2023 FERRITIN 05/30/2024 FERRITIN 08/10/2024 IRON AND TIBC 08/10/2024 IRON AND TIBC 05/30/2024 IRON AND TIBC 12/02/2023 IRON AND TIBC 02/14/2024 IRON AND TIBC 10/26/2023 IRON AND TIBC 09/29/2023 IRON AND TIBC 08/31/2023 PROF 14(COMP METB) 10/26/2023 PROF CHEM 8 (BAS METB) 12/02/2023 PROF CHEM 8 (BAS METB) 05/30/2024 PROF CHEM 8 (BAS METB) 03/10/2024 PROF CHEM 8 (BAS METB) 08/10/2024 PROF CHEM 8 (BAS METB) 08/31/2023 PROF CHEM 8 (BAS METB) 07/22/2023 PROF CHEM 8 (BAS METB) 09/29/2023 AFB Specimen Processing 07/08/2023 Acid Fast Smear 07/08/2023 Acid Fast Culture 07/08/2023 ECG 12 lead 03/10/2024 Fungus Stain 07/08/2023 Erythrocyte Sedimentation Rate 4 Erythrocyte Sedimentation Rate 4 Erythrocyte Sedimentation Rate 4 Erythrocyte Sedimentation Rate 5 Erythrocyte Sedimentation Rate 4 Erythrocyte Sedimentation Rate 4 Packed Red Blood Cells 06/06/2024 Packed Red Blood Cells 10/12/2023 Packed Red Blood Cells 07/27/2023 Type and Screen 07/27/2023 Type and Screen 10/12/2023 Type and Screen 06/06/2024 MYELO DYSPL SYNDROME (MDS), DIAGNOSTIC F GIULIANA, VARIES 10/11/2023 Reticulocyte Pct Auto 09/29/2023 Erythropoietin (EPO), Serum 09/29/2023 VC SEGMENTAL PRESSURES 03/06/2024 Vitamin B12 02/14/2024 Next Appt Details Provider Name:Nina River , 08/29/2024 10:30:00 AM, [address] [place], [address], Provider Name:Raghavendra Martins, 06/13/2025 11:00:00 AM, [address] [place], [address], Insurance Providers Payer Name Payer Address Payer Phone Subscriber Number Group Number Insured Name Patient Relationship to Insured Coverage Start Date Coverage End Date [place] [address] [place] [address] [phone] [id number] Joel Stinson Self - patient is the insured 7 Medical (General) History Medical History History ICD Code JAE (obstructive sleep apnea) G47.33 HTN (hypertension) I10 Cauda equina syndrome G83.4 Chronic paraplegia G82.20 Dyslipidemia E78.5 MDD (major depressive disorder) F32.9 Overflow incontinence N39.490 DM2 (diabetes mellitus, type 2) E11.9 Chronic kidney disease, stage 3b N18.32 Obesity E66.9 History of osteomyelitis Z87.39 History of gastritis Z87.19 History of COVID-19 Z86.16 Surgical History Surgery Date(Month/Year) Lumbar surgery for cauda equina syndrome Urethral dilation EGD Colonoscopy Appendectomy Hospitalization History Reason Date(Month/Year) Left lower extremity chronic ulcer, cell ulitis 10/07/2022
--- OUTSIDE RECORDS SUMMARY | 2024-08-18 08:52 | XMS_ITS | Encounter Summary ---
Author Organization [facility] Address [address] [place] [address] Care Team Providers Care Curtain Fitter Name Role Phone Fidel Reis MD Unavailable Fidel Reis MD Primary Care Provider [phone] Fidel Reis MD Unavailable Alvin Gonzalez MA Unavailable Unavailable Encounter Details Date Type Department Care Team (Late st Contact Info) Description 03/10/2024 Clinisync Result Encounter [facility] External Department Unsolicited [...] often do you attend chur ch or denominational services? Patient declined 10/17/2023 Do you belong to any clubs o r organizations such as quaker groups, unions, fraternal or athletic groups, or [...] and heating? Not hard at all 10/17/2023 [facility] [place] of Occupat ional Health - Occupational Stress [...] any time in the past 12 m [facility], were you homeless or living in a residential (including now)? No 10/17/2023 Sex and Gender Information Value Date Recorded Sex Assigned at Not on file Legal Sex Male 7:28 PM EDT Gender Identity Not on file Sexual Orientation Not on file documented as of this encounter Plan of Treatment Upcoming Encounters Date Type Department Care Team (Late st Contact Info) Description 02/01/2025 10:30 AM EST Office Visit [facility] [address] [place] [address] Fidel Reis MD [address] [place] [address] documented as of this encounter Procedures Procedure Name Priority Date/Time Associated Diagnosis Comments ECG 12-LEAD 03/10/2024 10:37 AM EST documented in this encounter Results * ECG 12-LEAD (03/10/2024 10:37 AM EST) Anatomical Region Laterality Modality Other 03/10/2024 10:3 7 AM EST Narrative 03/10/2024 5:24 [place] [address] Electrocardiograph Report Signed Patient: JOEL MIRANDA MR#: [id number] : 1960 Acct:[id number] Age/Sex: 63 / M ADM Date: 03/10/24 Loc: PST Attending Dr: Jesus Bahena D.P.M. Ordering Physician: Jesus Bahena D.P.M. 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 Signed By: 03/10/241723 DD/ 1037 TD/TT: Vehicle Body Maker: Procedure Note Radiology, Radiologist, - 03/10/[address] [address] Electrocardiograph Report Signed Patient: JOEL MIRANDA R#: [id number] : 1960cct:[id number] Age/Sex: 63 / MADM Date: 03/10/24 Loc: [facility] Attending Dr: Jesus Bahena D.P.M. Ordering Physician: Jesus Bahena D.P.M. Date of Service: 03/10/24 Procedure(s): ECG 12 lead Accession Number(s): [id number] cc: The [facility] Test Date: 2024-03-10 Pat Name: JOEL MIRANDA Department: Room: - Gender: Male Ruby Rails Developer: : 1960 Requested By: JESUS BAHENA Order Number: [id number] Reading MD: AVELINO CASTANON Measurements Intervals [place] Rate: 53 P: 86 CO: 179 QRS: 8 QRSD: 110 T: 34 QT: 451 QTc: 425 Interpretive Statements SINUS BRADYCARDIA Compared to ECG 11/25/2022 10:12:24 Sinus rhythm no longer present Electronically Signed On 03-10-2024 17:24:37 EST by AVELINO CASTANON Dictated By: Avelino Castanon D.O. Signed By:03/10/241723 DD/ 1037 TD/TT: Vehicle Body Maker: us Generic External Data Provider [facility] Final Result documented in this encounter Visit Diagnoses Not on filedocumented in this encounter Care Teams Curtain Fitter Relationship Specialty Start Date End Date Fidel Reis MD [address] [place] [address] PCP - [place] [employer] 02/26/23 Fidel Reis MD [address] [place] [address] PCP - General Family Medicine 11/18/23 Fidel Reis MD [address] [place] [address] PCP - [facility] Re[facility] 05/05/24 Alvin Gonzalez MA Family Medicine 08/08/24 08/15/24 documented as of this encounter
--- OUTSIDE RECORDS SUMMARY | 2024-08-18 08:52 | XMS_ITS | Encounter Summary ---
Author Organization [facility] Address [address] [place] [address] Care Team Providers Care Claims Administrator Name Role Phone Fidel Reis MD Unavailable Fidel Reis MD Primary Care Provider [phone] Fidel Reis MD Unavailable Alvin Gonzalez MA Unavailable Unavailable Reason for Visit * Reason Comments Med Refill Encounter Details Date Type Department Care Team (Late st Contact Info) Description 06/24/2024 [facility] [address] [place] [address] Fidel Reis MD [address] [place] [address] Benign hypertension (CMS/HCC); Type 2 diabetes mellitus with hyperglycemia, without long-term current use of insulin (CMS/HCC) Social History Tobacco Use Types Packs/Day [...] often do you attend chur ch or orthodox services? Patient declined 10/17/2023 Do you belong to any clubs o r organizations such as anglican groups, unions, fraternal or athletic groups, or [...] and heating? Not hard at all 10/17/2023 [facility] of Occupat ional Health - Occupational Stress [...] any time in the past 12 m [facility], were you homeless or living in a long-term (including now)? No 10/17/2023 Sex and Gender Information Value Date Recorded Sex Assigned at Not on file Legal Sex Male 7:28 PM EDT Gender Identity Not on file Sexual Orientation Not on file documented as of this encounter Miscellaneous Notes * Telephone Encounter - AMRIK MEHTA - 06/26/2024 9:04 AM EDT [facility]ICATION S[facility] documented in this encounter Plan of Treatment Upcoming Encounters Date Type Department Care Team (Late st Contact Info) Description 02/01/2025 10:30 AM EST Office Visit [facility] [address] [place] [address] Fidel Reis MD [address] [place] [address] documented as of this encounter Visit Diagnoses Diagnosis Benign hypertension (CMS/HCC) Essential hypertension, benign Type 2 diabetes mellitus with hyperglycemia, without long-term current use of insulin (CMS/HCC) documented in this encounter Care Teams Claims Administrator Relationship Specialty Start Date End Date Fidel Reis MD [address] [place] [address] PCP - [place] [employer] 02/26/23 Fidel Reis MD [address] [place] [address] PCP - General Family Medicine 11/18/23 Fidel Reis MD [address] [place] [address] PCP - ACO Reach 05/05/24 Alvin Gonzalez MA Family Medicine 08/08/24 08/15/24 documented as of this encounter
--- OUTSIDE RECORDS SUMMARY | 2024-08-18 08:52 | XMS_ITS | Encounter Summary ---
Author Organization [facility] Address [address] [place] [address] Care Team Providers Care Drafter Refrigeration Name Role Phone Jameel Smith Primary Care Provider Unavailabl e Source Comments In the event this information is protected by the Federal Confidentiality of Alcohol and Drug AbusePatient Records regulations: The Federal rules restrict any use of the information to criminally investigate or prosecute any alcohol or drug abuse patient.[facility] Encounter Details Date Type Department Care Team (Late st Contact Info) Description 06/09/2023 Lab Requisition [facility] [address] [place] [address] Jonathan Bah DPM Social History Tobacco Use Types Packs/Day Years Used Date Smoking Tobacco: Never Assessed Sex and Gender Information Value Date Recorded Sex Assigned at Not on file Legal Sex Male 10:01 AM EST Gender Identity Not on file Sexual Orientation Not on file documented as of this encounter Plan of Treatment Not on file documented as of this encounter Procedures Procedure Name Priority Date/Time Associated Diagnosis Comments ANTIMICROBIAL SUSCEPT-ANAEROBE Routine 06/04/2023 10:32 AM EST ORGANISM RENAN Routine 06/04/2023 10:32 AM EST documented in this encounter Results * ANTIMICROBIAL SUSCEPT-ANAEROBE (06/04/2023 10:32 AM EST) ANTIMICROBIAL SUSCEPTIBILITY - ANAEROBE 06/14/2023 2:41 PM EDT [facility] Final Report SEE NOTE 06/14/2023 2:41 PM EDT [facility] Comment: Prevotella disiens Organism identified by client INTERPRETIVE INFORMATION: Anaerobe Susceptibility Panel Units = ug/mL ANAMIC Piperacillin/Tazobactam <=1/4 None Amoxicillin/Clavulanate 1/0.5 None Metronidazole 2 None Ertapenem <=0.25 None Interpretive Information See Note At the present time there are no CLSI guidelines for performance and/or interpretation of susceptibility testing for anaerobes other than Bacteroides fragilis group by the broth microdilution method. Unable to provide interpretation for RENAN values. Susceptibility performed by non-standardized methodology. Interpret results with caution. Performed By: [employer] [address] [place] [address] Licensed Sales Producer: Tre Westfall MD, PhD CLIA Number: [id number] Micro Specimen BONE BIOPSY SPECIMEN / Unknown 06/04/2023 10:32 AM EST 06/09/2023 4:25 AM EDT [facility] Final Resul t Performing Organization Address [facility] de Phone Number [facility] [address] [place] [address] * (ABNORMAL) ORGANISM RENAN (06/04/2023 10:32 AM EST) [facility] Culture, Organism RENAN Result Prevotella disiens(A) MINIMUM INHIBITORY CONCENTRATION ([place]) 06/18/2023 4:00 PM EDT [facility] Comment: Identification performed by client. Susceptibility testing has been completed by [facility]. Refer to [facility] for final report. Beta Lactamase Positive 06/18/2023 4:00 PM EDT [facility] Micro Specimen BONE BIOPSY SPECIMEN / Unknown 06/04/2023 10:32 AM EST 06/09/2023 4:25 AM EDT [facility] Final Resul t Performing Organization Address [facility] Co de Phone Number [facility] [address] [facility] [address] [place] [address], documented in this encounter Visit Diagnoses Not on filedocumented in this encounter Care Teams Drafter Refrigeration Relationship Specialty Start Date End Date Jameel Smith PCP - General Internal Medicine 07/01/11 documented as of this encounter
--- OUTSIDE RECORDS SUMMARY | 2024-08-18 08:52 | XMS_ITS | Encounter Summary ---
Author Organization [facility] Address [address] [place] [place] [address] Care Team Providers Care Optical Glass Inspector Name Role Phone Fidel Reis MD Unavailable Fidel Reis MD Primary Care Provider [phone] Fidel Reis MD Primary Care Provider [phone] Fidel Reis MD Primary Care Provider [phone] Fidel Reis MD Unavailable Alvin Gonzalez MA Unavailable Unavailable Encounter Details Date Type Department Care Team (Late st Contact Info) Description 05/18/2023 Clinisync Result Encounter [facility] External Department Unsolicited [...] Visit [facility] [address] [place] [address] Fidel Reis MD [address] [place] [address] documented as of this encounter Procedures Procedure Name Priority Date/Time Associated Diagnosis Comments MR ANKLE LT WO CON 05/18/2023 4: 05 PM EST documented in this encounter Results * MR ANKLE LT WO CON (05/18/2023 4:05 PM EST) Anatomical Region Laterality Modality Other 05/18/2023 4:05 PM EST Narrative 05/18/2023 4:48 [place] [address] Magnetic Resonance Report Signed Patient: JOEL MIRANDA MR#: [id number] : 1960 Acct:[id number] Age/Sex: 62 / M ADM Date: 05/18/23 Loc: MRI Attending Dr: KASSIE MOFFETT Ordering Physician: KASSIE MOFFETT Date of Service: 05/18/23 Procedure(s): MR ankle LT wo con Accession Number(s): [id number] cc: KASSIE MOFFETT ; Fidel Reis M.D. The [place] [id number] Patient Name: JOEL MIRANDA MRN: [id number] date: 1960 Sex: M Assigned Patient Location: MRI Current Patient Location: MRI Accession/Order Number: [id number] Exam Date: 05/18/2023 10:51 Report Date: 05/18/2023 16:05 At the request of: KASSIE MOFFETT Procedure: MR ankle LT wo con MR ankle LT wo con, 05/18/2023 10:51 AM EST INDICATION: Acute Osteomyelitis Of Left Fibula M65.162 COMPARISON: Prior x-ray of the left ankle dated 11/08/2022 TECHNIQUE: Multiplanar and multisequential MR images of the left ankle were obtained without contrast . FINDINGS: There is an ulcer at the level of the lateral malleolus extending to the lateral aspect of fibula causing T1 and T2 prolongation with no definite bone destruction most likely consistent with early osteomyelitis. No fluid collection or abscess or fistula is noted. Diffuse circumferential soft tissue swelling is noted. Muscles and tendons: The flexor and extensor tendons and muscles are unremarkable. No abnormality of the peroneal tendons is noted. Achilles tendon is unremarkable. There is fatty atrophy of the visualized muscles of anterior and posterior and lateral compartments. Sinus Tarsi: No abnormality of sinus Tarsi is noted. Ligaments: No abnormality of the visualized portion of the ligaments is noted. There is normal intra-articular joint effusion. MR/MR ankle LT wo con IMPRESSION: Finding suggesting of early osteomyelitis of the lateral fibula. No definite fluid collection or abscess is noted. Diffuse circumferential soft tissue swelling. Cellulitis cannot be totally excluded by imaging. Electronically authenticated by: ERIC TRAVIS Date: 05/18/2023 16:05 Dictated By: Eric Travis M.D. Signed By: 05/18/23 1648 DD/ 1605 TD/TT: [employer] Specialist: Procedure Note Radiology, Radiologist, - 05/18/2023 [place] [address] Magnetic Resonance Report Signed Patient: JOEL MIRANDA LMR#: [id number] : 1960cct:[id number] Age/Sex: 62 / MADM Date: 05/18/23 Loc: MRI Attending Dr: KASSIE MOFFETT Ordering Physician: KASSIE MOFFETT Date of Service: 05/18/23 Procedure(s): MR ankle LT wo con Accession Number(s): [id number] cc: KASSIE MOFFETT ; Fidel Reis M.D. The [place] [address] Patient Name: JOEL MIRANDA MRN: [facility]:[id number] date: 1960 Sex: M Assigned Patient Location: MRI Current Patient Location: MRI Accession/Order Number: [id number] Exam Date: 05/18/2023 10:51 Report Date: 05/18/2023 16:05 At the request of: KASSIE MOFFETT Procedure: MR ankle LT wo con MR ankle LT wo con, 05/18/2023 10:51 AM EST INDICATION: Acute Osteomyelitis Of Left Fibula M65.162 COMPARISON: Prior x-ray of the left ankle dated 11/08/2022 TECHNIQUE: Multiplanar and multisequential MR images of the left anklewere obtained without contrast . FINDINGS: There is an ulcer at the level of the lateral malleolus extending to the lateral aspect of fibula causing T1 and T2 prolongation with no definitebone destruction most likely consistent with early osteomyelitis. No fluid collection or abscess or fistula is noted. Diffuse circumferential soft tissue swelling is noted. Muscles and tendons: The flexor and extensor tendons and muscles are unremarkable. No abnormality of the peroneal tendons is noted. Achillestendon is unremarkable. There is fatty atrophy of the visualized muscles ofanterior and posterior and lateral compartments. Sinus Tarsi: No abnormality of sinus Tarsi is noted. Ligaments: No abnormality of the visualized portion of the ligaments isnoted. There is normal intra-articular joint effusion. MR/MR ankle LT wo con IMPRESSION: Finding suggesting of early osteomyelitis of the lateral fibula. Nodefinite fluid collection or abscess is noted. Diffuse circumferential soft tissue swelling. Cellulitis cannot be totally excluded by imaging. Electronically authenticated by: ERIC TRAVIS Date: 05/18/2023 16:05 Dictated By: Eric Travis M.D. Signed By:05/18/23 9078 DD/ 1605 TD/TT: [employer] Specialist: us Generic External Data Provider [facility] Final Result documented in this encounter Visit Diagnoses Not on filedocumented in this encounter Care Teams Optical Glass Inspector Relationship Specialty Start Date End Date Fidel Reis MD [address] [place] [address] PCP - [facility] 02/26/23 Fidel Reis MD [address] [place] [address] PCP - General Family Medicine 05/12/23 08/29/23 Fidel Reis MD [address] [place] [address] PCP - General Family Medicine 08/30/23 08/30/23 Fidel Reis MD [address] [place] [address] PCP - General Family Medicine 11/18/23 Fidel Reis MD [address] [place] [address] PCP - [facility] Re[employer] 05/05/24 Alvin Gonzalez MA Family Medicine 08/08/24 08/15/24 documented as of this encounter
--- OUTSIDE RECORDS SUMMARY | 2024-08-18 08:52 | XMS_ITS | Encounter Summary ---
Author Organization [facility] Address [address] [place] [address] Care Team Providers Care Patient Registrar Name Role Phone Fidel Reis MD Unavailable Fidel Reis MD Primary Care Provider [phone] Fidel Reis MD Unavailable Alvin Gonzalez MA Unavailable Unavailable Encounter Details Date Type Department Care Team (Late st Contact Info) Description 12/02/2023 Orders Only [facility] [address] [place] [address] Fidel Reis MD [address] [place] [address] Social History Tobacco Use Types Packs/Day Years [...] week 10/17/2023 How often do you attend [facility] or sikhism services? Patient declined 10/17/2023 Do you belong to any clubs o r organizations such as yazidi groups, unions, fraternal or athletic groups, or [...] and heating? Not hard at all 10/17/2023 [facility] of Occupat ional Health - Occupational Stress [...] any time in the past 12 m [facility], were you homeless or living in a care home (including now)? No 10/17/2023 Sex and Gender Information Value Date Recorded Sex Assigned at Not on file Legal Sex Male 7:28 PM EDT Gender Identity Not on file Sexual Orientation Not on file documented as of this encounter Plan of Treatment Upcoming Encounters Date Type Department Care Team (Late st Contact Info) Description 02/01/2025 10:30 AM EST Office Visit [facility] [address] [place] [phone] Fidel Reis MD [address] [place] [address] documented as of this encounter Visit Diagnoses Not on filedocumented in this encounter Care Teams Patient Registrar Relationship Specialty Start Date End Date Fidel Reis MD [address] [place] [address] PCP - [place] [employer] 02/26/23 Fidel Reis MD [address] [place] [address] PCP - General Family Medicine 11/18/23 Fidel Reis MD [address] [place] [address] PCP - [facility] 05/05/24 Alvin Gonzalez MA Family Medicine 08/08/24 08/15/24 documented as of this encounter
--- OUTSIDE RECORDS SUMMARY | 2024-08-18 08:52 | XMS_ITS | Encounter Summary ---
Author Organization [facility] Address [address] [place] [address] Care Team Providers Care Veterinary Toxicologist Name Role Phone Fidel Reis MD Unavailable Fidel Reis MD Primary Care Provider [phone] Fidel Reis MD Unavailable Alvin Gonzalez MA Unavailable Unavailable Encounter Details Date Type Department Care Team (Late st Contact Info) Description 02/15/2024 Orders Only [facility] [address] [place] [address] Ganga Corona MD [address] [place], [place] [phone] Social History Tobacco Use Types Packs/Day Years [...] week 10/17/2023 How often do you attend [facility] or buddhism services? Patient declined 10/17/2023 Do you belong to any clubs o r organizations such as taoist groups, unions, fraternal or athletic groups, or [...] and heating? Not hard at all 10/17/2023 [facility] - Occupational Stress Questionnaire Answer Date Recorded [...] any time in the past [address] [facility], were you homeless or living in a correction (including now)? No 10/17/2023 Sex and Gender [...] Office Visit [facility] [address] [place] [address] Fidel Reis MD [address] [place] [address] documented as of this encounter Procedures Procedure Name Priority Date/Time Associated Diagnosis Comments XR TIBIA FIBULA 2 VIEWS RIGHT Routine 02/15/2024 7:37 AM EST documented in this encounter Results * XR tibia fibula 2 views right (02/15/2024 7:37 AM EST) Anatomical Region Laterality Modality Lower Extremities, Lower Leg Right Rad iographic Imaging us Ganga Corona MD IMG XR PROCEDURES Final Resul t documented in this encounter Visit Diagnoses Not on filedocumented in this encounter Care Teams Veterinary Toxicologist Relationship Specialty Start Date End Date Fidel Reis MD [address] [place] [address] PCP - [employer] [employer] 02/26/23 Fidel Reis MD [address] [place] [address] PCP - General Family Medicine 11/18/23 Fidel Reis MD [address] [place] [address] PCP - [facility] 05/05/24 Alvin Gonzalez MA Family Medicine 08/08/24 08/15/24 documented as of this encounter
--- OUTSIDE RECORDS SUMMARY | 2024-08-18 08:52 | XMS_ITS ---
Author Organization [facility] Address [address] [place] [address] Care Team Providers Care Fisher Swordfish Name Role Phone Fidel Reis MD Primary Care Provider Fidel Reis MD Unavailable Chronic Care Management (CCM) Status:Closed (Closed) Start date:08/08/2024 Enrollment date:08/15/2024 Enrollment reason:Identified by Health Plan End date:08/15/2024 Close reason:Assistance not needed Overview Please assess for Care Management needs. 08/08/2024-spv vytalize Continued Care and Services Coordination
--- OUTSIDE RECORDS SUMMARY | 2024-08-18 08:52 | XMS_ITS | Encounter Summary ---
Author Organization [facility] Address [address] [place] [address] Care Team Providers Care Combine Mechanic Name Role Phone Fidel Reis MD Primary Care Provider [phone] Fidel Reis MD Unavailable Fidel Reis MD Primary Care Provider [phone] Fidel Reis MD Primary Care Provider [phone] Fidel Reis MD Primary Care Provider [phone] Fidel Reis MD Unavailable Alvin Gonzalez MA Unavailable Unavailable Encounter Details Date Type Department Care Team (Late st Contact Info) Description 02/09/2023 External Result Encounter [facility] External Department Unsolicited Jonathan Bah DPM [address] [address] Social History Tobacco Use Types [...] Office Visit [facility] [address] [place] [address] Fidel Reis MD [address] [place] [address] documented as of this encounter Procedures Procedure Name Priority Date/Time Associated Diagnosis Comments [facility] US PVR/SEGMENTAL PRESSURES LOWER 02/09/2023 12:17 PM EST documented in this encounter Results * [facility] US PVR/SEGMENTAL PRESSURES LOWER (02/09/2023 12:17 PM EST) Anatomical Region Laterality Modality Right Ultrasound 02/09/2023 12:1 7 PM EST Impressions 02/09/2023 12:38 PM EST 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 THE PATIENT IS MOST LIKELY TO HAVE diffuse DISEASE OF THE LEFT LOWER EXTREMITY. Impression dictated by: Camden Navarro MD02/09/2023 12:18 PM Dictation Location: [place] [address] Tech: Coni Letty Transcribed By: MARYANN 02/09/238 Dictated By: Camden Navarro MD 02/09/237 Signed By: <Electronically signed by Camden Navarro MD in OV> 02/09/23 1218 Narrative 02/09/2023 12:38 PM EST [facility] [place] [address] Ultrasound Report Signed Patient: Ganga Miranda MR#: [id number] : 1960 Acct:[id number] Age/Sex: 62 / M ADM Date: 02/06/23 Loc: Room: [address] [place] [address] Type: ADM IN Attending Dr: Suzy Douglas MD Ordering Provider: Jonathan Bah DPM Date of Service: 02/08/23 US/US arterial [...] lower extremity. US/US arterial pvr rest LE Procedure Note Camden Navarro MD - 02/09/2023 [facility] Main [place] [address] [place] [address] Ultrasound Report Signed Patient: Ganga Miranda LMR#: [id number] : 2Acct:[id number] Age/Sex: 62 / MADM Date: 02/06/23 Loc: Room: [id number]: ADM IN Attending Dr: Suzy Douglas MD Ordering Provider: Jonathan Bah DPM Date of Service: 02/08/23 US/US arterial pvr rest LE: pvd/left foot OM/sxindicated Copies to: CRISTIANA Lowe MD LOWER EXTREMITY SEGMENTAL ARTERIAL DOPSCAN (PVR) INDICATION: Chronic wounds in the lower extremities. PROCEDURE: Right arm blood pressure is 142 , left is 135 . Pressuresthroughout the right leg are 190 at the low thigh, 190 at the calf, cno at the ankle usingthe posterior tibial artery and cno at the ankle using the dorsalis pedis artery withankle-brachial index of -NC- -NC- . Pressures throughout the left leg are 145 at the calf, 153 at theankle using the posterior tibial artery and 144 at the ankle using the dorsalis pedis artery withankle- brachial index of 1.01 1.08 . Wave forms by plethysmography are normal in the right lower extremity andbiphasic in the left lower extremity. US/US arterial pvr rest LE IMPRESSION: Mild to moderate PERIPHERAL ARTERIAL DISEASE OF THE LEFT LOWER EXTREMITYAT REST. THE PATIENT IS MOST LIKELY TO HAVE diffuse DISEASE OF THE LEFT LOWER EXTREMITY. Impression dictated by: Camden Navarro MD02/09/2023 12:18 PM Dictation Location: [facility] Tech: Coni Saenz Transcribed By: PWS 02/09/23 1218 Dictated By: Camden Navarro MD 02/09/237 Signed By: <Electronically signed by Camden Navarro MD inOV> 02/09/23 1218 us Jonathan Bah DPM IMG US PROCEDURES Final Res ult documented in this encounter Visit Diagnoses Not on filedocumented in this encounter Care Teams Combine Mechanic Relationship Specialty Start Date End Date Fidel Reis MD PCP - General Family Medicine 12/10/22 05/11/23 Fidel Reis MD [address] [place] [address] PCP - [facility] 02/26/23 Fidel Reis MD [address] [place] [address] PCP - General Family Medicine 05/12/23 08/29/23 Fidel Reis MD [address] [place] [address] PCP - General Family Medicine 08/30/23 08/30/23 Fidel Reis MD [address] [place] [address] PCP - General Family Medicine 11/18/23 Fidel Reis MD [address] [place] [address] PCP - [facility] 05/05/24 Alvin Gonzalez MA Family Medicine 08/08/24 08/15/24 documented as of this encounter
--- OUTSIDE RECORDS SUMMARY | 2024-08-18 08:52 | XMS_ITS | Encounter Summary ---
Author Organization [facility] Address [address] [place] [address] Care Team Providers Care Information Technology Administrator Name Role Phone Fidel Reis MD Unavailable Fidel Reis MD Primary Care Provider [phone] Fidel Reis MD Primary Care Provider [phone] Fidel Reis MD Primary Care Provider [phone] Fidel Reis MD Unavailable Alvin Gonzalez MA Unavailable Unavailable Encounter Details Date Type Department Care Team (Late st Contact Info) Description 06/11/2023 Abstract [facility] [address] [facility] [address] Jj Bah MD [address] [place] [address] [place] [address] Social History Tobacco Use Types Packs/Day Years [...] 10:30 AM EST Office Visit [facility] [address] [place] [address] Fidel Reis MD [address] [place] [address] documented as of this encounter Visit Diagnoses Not on filedocumented in this encounter Care Teams Information Technology Administrator Relationship Specialty Start Date End Date Fidel Reis MD [address] [place] [address] PCP - [facility] 02/26/23 Fidel Reis MD [address] [place] [address] PCP - General Family Medicine 05/12/23 08/29/23 Fidel Reis MD [address] [place] [address] PCP - General Family Medicine 08/30/23 08/30/23 Fidel Reis MD [address] [place] [address] PCP - General Family Medicine 11/18/23 Fidel Reis MD [address] [place] [address] PCP - [facility] 05/05/24 Alvin Gonzalez MA Family Medicine 08/08/24 08/15/24 documented as of this encounter
--- OUTSIDE RECORDS SUMMARY | 2024-08-18 08:52 | XMS_ITS | Clinical Summary ---
Author Organization [facility] Address [id number] [address] [place] [address] Care Team Providers Care Manager Er Name Role Phone Fidel Reis MD Primary Care Provider [phone] Allergies Active Allergy Reactions Criticality Noted Date Comments Vancomycin Other (See Comments) 01/01/2017 NEPHROTOXICITY Medications citalopram (CeleXA) 40 mg tablet Take 40 mg by mouth daily. 09/22/2016 Active atenolol (TENORMIN) 100 mg tablet Take 100 mg by mouth daily. 06/29/2016 Active amLODIPine (NORVASC) 10 mg tablet Take 10 mg by mouth daily. 06/27/2016 Active fenofibrate (TRICOR) 145 mg tablet Take 145 mg by mouth daily. DAILY AT BEDTIME 09/22/2016 Active rosuvastatin (CRESTOR) 20 mg tablet Take 20 mg by mouth daily. TAKE ONE TABLET BY MOUTH DAILY AT BEDTIME 06/07/2016 Active insulin glargine (LANTUS) 100 unit/mL injection Inject 40 Units under the skin 2 (two) times a day. 10/14/2016 Active lisinopril (PRINIVIL,ZESTR IL) 20 mg tablet Take 10 mg by mouth daily. 01/01/2017 Active insulin aspart (NovoLOG) 100 unit/mL insulin pen [...] 450 OR GREATER 16 UNITS 05/29/2016 Active Social History Tobacco Use Types Packs/Day Years Used Date Smoking Tobacco: Never Smokeless Tobacco: Never Tobacco Cessation:Counseling Given: Not Answered Alcohol Use Standard Drinks/Week Comments Never 0 [...] Sign Reading Time Taken Comments Blood Pressure 146/69 10/11/2023 9:51 AM EDT Pulse 56 10/11/2023 9:51 AM EDT Temperature 36.6 C (97.8 F) 01/22/2017 3:27 PM EDT Respiratory Rate 18 10/11/2023 9:51 AM EDT Oxygen Saturation 100% 10/11/2023 9:51 AM EDT Inhaled Oxygen Concentration - - Weight 102.1 kg (225 lb) 10/11/2023 8:12 AM EDT Height 180.3 cm (5' 11 ) 10/11/2023 8:12 AM EDT Body Mass Index 31.38 10/11/2023 8:12 AM EDT Plan of Treatment Health Maintenance Due Date Last Done Comments Depression Screening 1973 Adult BMI Follow Up Plan 07/08/1979 DTaP,Tdap and Td Vaccines (1 - Tdap) 1980 Zoster (Shingles) Vaccine (1 of 2) 07/08/2011 Adult BMI Screening 10/10/2024 10/11/2023 Tobacco Screening 10/10/2024 10/11/2023 Influenza Vaccine 11/27/2024 02/11/2023, , 01/01/2015, Additional history exists Medical Devices Not on file Insurance MEDICARE ANTHEM [place] [id number] MEDICARE ANTHEM Care Teams Manager Er Relationship Specialty Start Date End Date Fidel Reis MD PCP - General 12/28/16
--- OUTSIDE RECORDS SUMMARY | 2024-08-18 08:53 | XMS_ITS | Encounter Summary ---
Author Organization [facility] Address [address] [place] [address] Care Team Providers Care Coin Collector Name Role Phone Fidel Reis MD Primary Care Provider [phone] Fidel Reis MD Unavailable Fidel Reis MD Primary Care Provider [phone] Fidel Reis MD Primary Care Provider [phone] Fidel Reis MD Primary Care Provider [phone] Fidel Reis MD Unavailable Alvin Gonzalez MA Unavailable Unavailable Encounter Details Date Type Department Care Team (Late st Contact Info) Description 10/27/2022 Abstract [facility] [address] [phone] Klaus Brar MD [address] [address] Social History Tobacco Use Types [...] [facility] [address] [place] [address] Fidel Reis MD [address] [place] [address] documented as of this encounter Visit Diagnoses Not on filedocumented in this encounter Care Teams Coin Collector Relationship Specialty Start Date End Date Fidel Reis MD PCP - General Family Medicine 12/10/22 05/11/23 Fidel Reis MD [address] [place] [address] PCP - [facility] 02/26/23 Fidel Reis MD [address] [place] [address] PCP - General Family Medicine 05/12/23 08/29/23 Fidel Reis MD [address] [place] [address] PCP - General Family Medicine 08/30/23 08/30/23 Fidel Reis MD [address] [place] [address] PCP - General Family Medicine 11/18/23 Fidel Reis MD [address] [place] [address] PCP - [facility] 05/05/24 Alvin Gonzalez MA Family Medicine 08/08/24 08/15/24 documented as of this encounter
--- OUTSIDE RECORDS SUMMARY | 2024-08-18 08:53 | XMS_ITS | Encounter Summary ---
Author Organization [facility] Address [address] [place] [address] Care Team Providers Care Surgeon/President Name Role Phone Fidel eRis MD Primary Care Provider [phone] Fidel Reis MD Unavailable Fidel Reis MD Primary Care Provider [phone] Fidel Reis MD Primary Care Provider [phone] Fidel Reis MD Primary Care Provider [phone] Fidel Reis MD Unavailable Alvin Gonzalez MA Unavailable Unavailable Encounter Details Date Type Department Care Team (Late st Contact Info) Description 02/08/2023 External Result Encounter [facility] External Department Unsolicited Jonathan Bah DPM [address] [address] Social History Tobacco Use Types [...] Office Visit [facility] [address] [place] [address] Fidel Reis MD [address] [place] [address] documented as of this encounter Procedures Procedure Name Priority Date/Time Associated Diagnosis Comments MR FOOT LEFT WO IV CONTRAST 02/08/2023 2:29 PM EST documented in this encounter Results * MR foot left wo IV contrast (02/08/2023 2:29 PM EST) Anatomical Region Laterality Modality Lower Extremities, Foot Left Magnetic Resonance 02/08/2023 2:29 PM EST Impressions 02/09/2023 7:59 AM EST 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 There is diffuse edema suspicious for cellulitis with possible abscess formation in the lateral soft tissues adjacent to the fifth metatarsal. Impression dictated by: Canelo Red M.D.02/08/2023 2:39 PM Dictation Location: [place] [address] Transcribed By: [facility] 02/08/23 1439 Dictated By: Canelo Red II, MD 02/08/23 1429 Signed By: <Electronically signed by Canelo Red II, MD in OV> 02/08/23 1439 Narrative 02/09/2023 7:59 AM EST [facility] Main [place] [address] [place] [address] MRI Report Signed Patient: Ganga Miranda MR#: [id number] : 1960 Acct:[id number] Age/Sex: 62 / M ADM Date: 02/06/23 Loc: Room: [address] [place] [address] Type: ADM IN Attending Dr: Suzy Douglas MD Copies to: CRISTIANA Lowe MD Ordering Provider: Jonathan Bah DPM Date of Service: 02/08/23 MR/MR foot [...] vessels: Normal. MR/MR foot LT wo con Procedure Note Radiology, Radiologist, - 02/09/2023 [facility] Main [place] [address] [place] [address] MRI Report Signed Patient: Ganga Miranda LMR#: [id number] : 1960cct:[id number] Age/Sex: 62 / MADM Date: 02/06/23 Loc: Room: [id number]: ADM IN Attending Dr: Suzy Douglas MD Copies to: CRISTIANA Lowe MD Ordering Provider: Jonathan Bah DPM Date of Service: 02/08/23 MR/MR foot LT wo con: left 5th mpj ulcer/OM/dm MR foot LT wo con 02/07/2023 10:24 AM SIGNS AND SYMPTOMS: left 5th mpj ulcer/OM/dm PROTOCOL: Multiplanar multisequence MR images of the left foot wereobtained without IV contrast COMPARISON: 02/06/2023. FINDINGS: Lisfranc [...] the distal shaft and head of the fourthmetatarsal extending into the fourth metatarsophalangeal joint. Extensor tendon: Normal. Flexor tendon: Normal. Fourth metatarsophalangeal joint: Otherwise normal. Plantar plate: Normal. Fifth ray: Osseous: There is cortical destruction with accompanying edema within theshaft and head of the fifth metatarsal and base of the fifth proximal phalanx traversing thefifth metatarsophalangeal joint space. Extensor tendon: Normal. Flexor tendon: Normal. Fifth metatarsophalangeal joint: As above. Plantar plate: Normal. Interspaces: Interdigital (Montemayor) neuroma: None. Intermetatarsal bursitis: None. Soft tissues: There are focal areas of susceptibility in the subcutaneoussoft tissues along the plantar aspect of the fifth metatarsal and metatarsophalangeal jointconsistent with a history of soft tissue ulceration. There is diffuse soft tissue edema withoutevidence of bowel defined fluid collection to suggest abscess formation.. There is a 4.9 x 1.5 x 1.5 cmheterogeneous T2 hyperintense focus along the lateral soft tissues of the fifth metatarsalwhich may represent a small abscess. This appears to communicate with the skin surface of thelateral aspect of the foot along the distal shaft of the fifth metatarsal. Muscles: There is diffuse edema suggesting myositis. Bones: As above. Nerves: Normal. Blood vessels: Normal. 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 There is diffuse edema suspicious for cellulitis with possible abscessformation in the lateral soft tissues adjacent to the fifth metatarsal. Impression dictated by: Canelo Red M.D.02/08/2023 2:39 PM Dictation Location: [place] [address] Transcribed By: [facility] 02/08/23 1439 Dictated By: Canelo Red II, MD 02/08/231428 Signed By: <Electronically signed by Canelo Red II, MD inOV> 02/08/23 143 Jonathan Bah DPSam IMG MRI PROCEDURES Final Re sult documented in this encounter Visit Diagnoses Not on filedocumented in this encounter Care Teams Surgeon/President Relationship Specialty Start Date End Date Fidel Reis MD PCP - General Family Medicine 12/10/22 05/11/23 Fidel Reis MD [address] [place] [address] PCP - [facility] 02/26/23 Fidel Reis MD [address] [place] [address] PCP - General Family Medicine 05/12/23 08/29/23 Fidel Reis MD [address] [place] [address] PCP - General Family Medicine 08/30/23 08/30/23 Fidel Reis MD [address] [place] [address] PCP - General Family Medicine 11/18/23 Fidel Reis MD [address] [place] [address] PCP - [facility] 05/05/24 Alvin Gonzalez MA Family Medicine 08/08/24 08/15/24 documented as of this encounter
--- OUTSIDE RECORDS SUMMARY | 2024-08-18 08:53 | XMS_ITS | Encounter Summary ---
Author Organization [facility] Address [address] [place] [address] Care Team Providers Care Card Brusher Name Role Phone Fidel Reis MD Primary Care Provider [phone] Fidel Reis MD Unavailable Fidel Reis MD Primary Care Provider [phone] Fidel Reis MD Primary Care Provider [phone] Fidel Reis MD Primary Care Provider [phone] Fidel Reis MD Unavailable Alvin Gonzalez MA Unavailable Unavailable Encounter Details Date Type Department Care Team (Late st Contact Info) Description 02/10/2023 External Result Encounter [facility] External Department Unsolicited Jonathan Bah DPM [address] [address] Social History Tobacco Use Types [...] Office Visit [facility] [address] [place] [address] Fidel Reis MD [address] [place] [address] documented as of this encounter Procedures Procedure Name Priority Date/Time Associated Diagnosis Comments XR FOOT 1-2 VIEWS LEFT 02/10/2023 9:34 PM EST documented in this encounter Results * XR foot 1 or 2 views left (02/10/2023 9:34 PM EST) Anatomical Region Laterality Modality Lower Extremities, Foot Left [facility] 02/10/2023 9:34 PM EST Impressions 02/11/2023 8:00 AM EST 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 There is diffuse soft tissue swelling with subcutaneous emphysema consistent with the immediate postoperative state. Impression dictated by: Canelo Red M.D.02/10/2023 9:36 PM Dictation Location: [place] [address] Transcribed By: [facility] 02/10/232135 Dictated By: Canelo Red II, MD 02/10/232133 Signed By: <Electronically signed by Canelo Red II, MD in OV> 02/10/232135 Narrative 02/11/2023 8:00 AM EST [facility] [place] [address] XRay Report Signed Patient: Ganga Miranda MR#: [id number] : 1960 Acct:[id number] Age/Sex: 62 / M ADM Date: 02/06/23 Loc: Room: [address] [place] [address] Type: ADM IN Attending Dr: Suzy Douglas MD Copies to: CRISTIANA Lowe MD Ordering Provider: Jonathan Bah DPM Date of Service: 02/10/23 XR/XR foot [...] the soft tissues. XR/XR foot LT 2V Procedure Note Radiology, Radiologist, - 02/11/2023 [facility] Main [place] [address] [place] [address] XRay Report Signed Patient: Ganga Miranda LMR#: [id number] : 2Acct:[id number] Age/Sex: 62 / MADM Date: 02/06/23 Loc: Room: [id number]: ADM IN Attending Dr: Suzy Douglas MD Copies to: CRISTIANA Lowe MD Ordering Provider: Jonathan Bah DPM Date of Service: 02/10/23 XR/XR foot LT 2V: left amputation 4/5metatarsals XR foot LT 2V 02/10/2023 7:13 PM SIGNS AND SYMPTOMS: left amputation 4/5 metatarsals PROTOCOL: Frontal and lateral radiographs of the left foot COMPARISON: 02/06/2023 FINDINGS: There has been amputation of the fourth and fifth digits since theprevious exam. There is diffuse soft tissue swelling with subcutaneous emphysema consistent with theimmediate postoperative state. There is no fracture or dislocation. Plantar surface calcaneal spurring isnoted. Vascular calcifications are present in the soft tissues. XR/XR foot LT 2V IMPRESSION: There has been amputation of the fourth and fifth digits since theprevious exam. There is diffuse soft tissue swelling with subcutaneous emphysemaconsistent with the immediate postoperative state. Impression dictated by: Canelo Red M.D.02/10/2023 9:36 PM Dictation Location: [place] [address] Transcribed By: [facility] 02/10/232135 Dictated By: Canelo Red II, MD 02/10/232133 Signed By: <Electronically signed by Canelo Red II, MD inOV> 02/10/232135 us Jonathan Bah DPM IMG XR PROCEDURES Final Res ult documented in this encounter Visit Diagnoses Not on filedocumented in this encounter Care Teams Card Brusher Relationship Specialty Start Date End Date Fidel Reis MD PCP - General Family Medicine 12/10/22 05/11/23 Fidel Reis MD [address] [place] [address] PCP - [facility] 02/26/23 Fidel Reis MD [address] [place] [address] PCP - General Family Medicine 05/12/23 08/29/23 Fidel Reis MD [address] [place] [address] PCP - General Family Medicine 08/30/23 08/30/23 Fidel Reis MD [address] [place] [address] PCP - General Family Medicine 11/18/23 Fidel Reis MD [address] [place] [address] PCP - [facility] 05/05/24 Alvin Gonzalez MA Family Medicine 08/08/24 08/15/24 documented as of this encounter
--- OUTSIDE RECORDS SUMMARY | 2024-08-18 08:53 | XMS_ITS | Encounter Summary ---
Author Organization [facility] Address [address] [place] [address] Care Team Providers Care Project Management Instructor Name Role Phone Fidel Reis MD Primary Care Provider [phone] Fidel Reis MD Unavailable Alvin Gonzalez MA Unavailable Unavailable Reason for Visit * Reason Onset Date Comments reschedule surrgery 08/15/2024 Encounter Details Date Type Department Care Team (Late st Contact Info) Description 08/15/2024 Telephone [facility]03 [facility] [address] [place] [address] Ivis Ricci [place] reschedule surrgery Social History Tobacco Use Types Packs/Day Years [...] 10/17/2023 How often do you attend chur or hinduism services? Patient declined 10/17/2023 Do you belong to any clubs o r organizations such as confucianist groups, unions, fraternal or athletic groups, or [...] and heating? Not hard at all 10/17/2023 [facility] [...] any time in the past 12 m [facility], were you homeless or living in a jail (including now)? No 10/17/2023 Sex and Gender Information Value Date Recorded Sex Assigned at Not on file Legal Sex Male 7:28 PM EDT Gender Identity Not on file Sexual Orientation Not on file documented as of this encounter Miscellaneous Notes * Telephone Encounter - Ivis iRcci MA - 08/15/2024 4:35 PM EDT Pt has been r/s to 10-02-24 at 12:30 pm per . * Telephone Encounter - Ivis Ricci MA - 08/15/2024 11:50 AM EDT Alix from [facility] calls to r/s pts surgery on 09-04-24 as pt can not do any time in August. I asked I theycould do 09-25 at 12:30pm and they could do that but we could not get a time until 3pm that day. I called patient and spoke to Jaelyn his and they do not want to do anything be holiday. When they get home Jaelyn will call me back to get this r/s. documented in this encounter Plan of Treatment Upcoming Encounters Date Type Department Care Team (Late st Contact Info) Description 02/01/2025 10:30 AM EST Office Visit [facility] [address] [place] [address] Fidel Reis MD [address] [place] [address] documented as of this encounter Visit Diagnoses Not on filedocumented in this encounter Care Teams Project Management Instructor Relationship Specialty Start Date End Date Fidel Reis MD [address] [place] [address] PCP - General Family Medicine 11/18/23 Fidel Reis MD [address] [place] [address] PCP - [facility] 05/05/24 Alvin Gonzalez MA Family Medicine 08/08/24 08/15/24 documented as of this encounter
--- OUTSIDE RECORDS SUMMARY | 2024-08-18 08:53 | XMS_ITS | Encounter Summary ---
Author Organization [facility] Address [address] [place] [address] Care Team Providers Care Special Events Planner Name Role Phone Fidel Reis MD Primary Care Provider [phone] Fidel Reis MD Unavailable Alvin Gonzalez MA Unavailable Unavailable Encounter Details Date Type Department Care Team (Late st Contact Info) Description 08/10/2024 Results [facility] [address] [place] [phone] Fidel Reis MD [address] [place] [phone] Social History Tobacco Use Types Packs/Day Years [...] week 10/17/2023 How often do you attend up health system or confucianist services? Patient declined 10/17/2023 Do you belong to any clubs o r organizations such as gnosticist groups, unions, fraternal or athletic groups, or [...] and heating? Not hard at all 10/17/2023 [facility] - Occupational [...] any time in the past 12 m [facility], were you homeless or living in a penitentiary (including now)? No 10/17/2023 Sex and Gender [...] Visit [facility] [address] [place] [address] Fidel Reis MD [address] [place] [phone] documented as of this encounter Visit Diagnoses Not on filedocumented in this encounter Care Teams Special Events Planner Relationship Specialty Start Date End Date Fidel Reis MD [address] [place] [phone] PCP - General Family Medicine 11/18/23 Fidel Reis MD [address] [place] [phone] PCP - [facility] 05/05/24 Alvin Gonzalez MA Family Medicine 08/08/24 08/15/24 documented as of this encounter
--- OUTSIDE RECORDS SUMMARY | 2024-08-18 08:53 | XMS_ITS | Encounter Summary ---
Author Organization [facility] Address [address] [place] [address] Care Team Providers Care Sas Bi Developer Name Role Phone Fidel Reis MD Primary Care Provider [phone] Fidel Reis MD Unavailable Fidel Reis MD Primary Care Provider [phone] Fidel Reis MD Primary Care Provider [phone] Fidel Reis MD Primary Care Provider [phone] Fidel Reis MD Unavailable Alvin Gonzalez MA Unavailable Unavailable Encounter Details Date Type Department Care Team (Late st Contact Info) Description 02/15/2023 Abstract [facility] [address] [place] [phone] Jonathan Bah DPM [address] [address] Social History Tobacco Use Types [...] [facility] [address] [place] [phone] Fidel Reis MD [address] [place] [address] documented as of this encounter Visit Diagnoses Not on filedocumented in this encounter Care Teams Sas Bi Developer Relationship Specialty Start Date End Date Fidel Reis MD PCP - General Family Medicine 12/10/22 05/11/23 Fidel Reis MD [address] [place] [phone] PCP - [facility] 02/26/23 Fidel Reis MD [address] [place] [phone] PCP - General Family Medicine 05/12/23 08/29/23 Fidel Reis MD [address] [place] [phone] PCP - General Family Medicine 08/30/23 08/30/23 Fidel Reis MD [address] [place] [phone] PCP - General Family Medicine 11/18/23 Fidel Reis MD [address] [place] [phone] PCP - [facility] 05/05/24 Alvin Gonzalez MA Family Medicine 08/08/24 08/15/24 documented as of this encounter
--- OUTSIDE RECORDS SUMMARY | 2024-08-18 08:53 | XMS_ITS | Encounter Summary ---
Author Organization [facility] Address [address] [place] [address] Care Team Providers Care Stereoptic Projection Topographer Name Role Phone Fidel Reis MD Primary Care Provider [phone] Fidel Reis MD Unavailable Fidel Reis MD Primary Care Provider [phone] Fidel Reis MD Primary Care Provider [phone] Fidel Reis MD Primary Care Provider [phone] Fidel Reis MD Unavailable Alvin Gonzalez MA Unavailable Unavailable Encounter Details Date Type Department Care Team (Late st Contact Info) Description 09/08/2022 Abstract [facility] [address] [phone] Klaus Brar MD [address] [address] Social History Tobacco Use Types [...] [facility] [address] [place] [phone] Fidel Reis MD [address] [place] [phone] documented as of this encounter Visit Diagnoses Not on filedocumented in this encounter Care Teams Stereoptic Projection Topographer Relationship Specialty Start Date End Date Fidel Reis MD PCP - General Family Medicine 12/10/22 05/11/23 Fidel Reis MD [address] [place] [phone] PCP - [facility] 02/26/23 Fidel Reis MD [address] [place] [phone] PCP - General Family Medicine 05/12/23 08/29/23 Fidel Reis MD [address] [place] [phone] PCP - General Family Medicine 08/30/23 08/30/23 Fidel Reis MD [address] [place] [phone] PCP - General Family Medicine 11/18/23 Fidel Reis MD [address] [place] [phone] PCP - [facility] 05/05/24 Alvin Gonzalez MA Family Medicine 08/08/24 08/15/24 documented as of this encounter
--- OUTSIDE RECORDS SUMMARY | 2024-08-18 08:53 | XMS_ITS | Encounter Summary ---
Author Organization [facility] Address [address] [place] [address] Care Team Providers Care Refueler Name Role Phone Fidel Reis MD Primary Care Provider [phone] Fidel Reis MD Unavailable Alvin Gonzalez MA Unavailable Unavailable Encounter Details Date Type Department Care Team (Late st Contact Info) Description 08/10/2024 Clinisync Result Encounter [facility] External Department Unsolicited [...] often do you attend chur ch or caodaism services? Patient declined 10/17/2023 Do you belong to any clubs o r organizations such as restoration groups, unions, fraternal or athletic groups, or [...] and heating? Not hard at all 10/17/2023 [facility] - Occupational Stress [...] any time in the past 12 m [facility], were you homeless or living in a [place] [facility] facility (including now)? No 10/17/2023 Sex and Gender [...] Office Visit [facility] [address] [place] [address] Fidel Reis MD [address] [place] [address] documented as of this encounter Procedures Procedure Name Priority Date/Time Associated Diagnosis Comments SRMCOH PROSTATE SPECIFIC ANTIGEN SCRN Routine 08/10/2024 11:00 AM EDT MLR HEMOGLOBIN A1C Routine 08/10/2024 11 :00 AM EDT METRO IRON AND TIBC Routine 08/10/2024 1 1:00 AM EDT HMHP LIVER PANEL Routine 08/10/2024 11:0 0 AM EDT CCF FERRITIN Routine 08/10/2024 11:00 AM EDT ALL THYROID STIM HORMONE Routine 08/10/2024 11:00 AM EDT ALL LIPID PROFILE (FASTING) Routine 08/10/2024 11:00 AM EDT ALL CBC WITH AUTO DIFF Routine 08/10/2024 11:00 AM EDT ALL BASIC METABOLIC PANEL Routine 08/10/2024 11:00 AM EDT documented in this encounter Results * (ABNORMAL) MLR HEMOGLOBIN A1C (08/10/2024 11:00 AM EDT) GLYCOHEMOGLOBIN A1C 6.8(H) 4.5 - 6.2 % TBH Comment: ADA RECOMMENDED LIMIT 4.0 - 6.0 ADA THERAPEUTIC TARGET < 7.0 ACTION SUGGESTED > 7.0 ESTIMATED AVERAGE GLUCOSE 148 mg/dL TBH 08/10/2024 11:0 0 AM EDT 08/10/2024 11:02 AM EDT Narrative CLINISYNC - 08/10/2024 12:40 PM EDT Fidel Reis MD CLINISYYASMIN Final Result Performing Organization Address [facility] de Phone Number CLINISYNC TBH * SRMCOH PROSTATE SPECIFIC ANTIGEN SCRN (08/10/2024 11:00 AM EDT) PROSTATE SPECIFIC ANTIGEN SCRN 0.44 <=4.00 ng/mL TBH 08/10/2024 11:0 0 AM EDT 08/10/2024 11:02 AM EDT Narrative CLINISYNC - 08/10/2024 12:40 PM EDT Fidel Reis MD CLINSHIV Final Result Performing Organization Address [facility] de Phone Number CLINISYNC [facility] * (ABNORMAL) CCF FERRITIN (08/10/2024 11:00 AM EDT) FERRITIN 622.0(H) 26.0 - 388.0 ng/mL TBH 08/10/2024 11:0 0 AM EDT 08/10/2024 11:02 AM EDT Narrative CLINISYNC - 08/10/2024 12:40 PM EDT Generic External Data Provider CLINISYNC F inal Result Performing Organization Address [facility] de Phone Number CLINISYNC [facility] * (ABNORMAL) METRO IRON AND TIBC (08/10/2024 11:00 AM EDT) TBH IRON 18.0(L) 65.0 - 175.0 ug/dL TBH TBH TOTAL IRON BINDING CAPACITY 140.0(L) 250.0 - 450.0 ug/dL TBH TBH PERCENT IRON SATURATION 12.9 % TBH 08/10/2024 11:0 0 AM EDT 08/10/2024 11:02 AM EDT Narrative CLINISYNC - 08/10/2024 12:29 PM EDT us Generic External Data Provider [facility]NC F [facility]al Result [facility] * ALL THYROID STIM HORMONE (08/10/2024 11:00 AM EDT) THYROID STIMULATING HORMONE 1.267 0.358 - 3.740 uIU/mL TBH 08/10/2024 11:0 0 AM EDT 08/10/2024 11:02 AM EDT Narrative CLINISYNC - 08/10/2024 12:20 PM EDT us Fidel Reis MD CLINISYNY Final Result Performing Organization Address [facility] Co de Phone Number [facility] * (ABNORMAL) ALL LIPID PROFILE (FASTING) (08/10/2024 11:00 AM EDT) TRIGLYCERIDES 58 <=150 mg/dL TBH CHOLESTEROL 85 <=200 mg/dL TB HDL CHOLESTEROL 29(L) 40 - 60 mg/dL TB Comment: > or =60 mg/dl - LOW CARDIOVASCULAR RISK <40 mg/dl - HIGH CARDIOVASCULAR RISK LDL CHOLESTEROL CALCULATED 45.0 mg/dL TB Comment: <100 mg/dl OPTIMAL 100-129 mg/dl NEAR OR ABOVE OPTIMAL 130-159 mg/dl BORDERLINE HIGH 160-189 mg/dl HIGH >190 mg/dl VERY HIGH VLDL CHOLESTEROL 11.6 mg/dL TB CHOL HDL RATIO 2.9 TB Comment: 3.3 - 4.4 LOW RISK 4.4 - 7.1 AVERAGE RISK 7.1 - 11.0 MODERATE RISK >11.0 HIGH RISK 08/10/2024 11:0 0 AM EDT 08/10/2024 11:02 AM EDT Narrative CLINISYNC - 08/10/2024 12:20 PM EDT Fidel Reis MD CLINISYNC Final Result CLINISYNC TB * (ABNORMAL) HP LIVER PANEL (08/10/2024 11:00 AM EDT) BILIRUBIN TOTAL 0.2 0.2 - 1.0 mg/dL TBH BILIRUBIN DIRECT 0.1 0.0 - 0.2 mg/dL TBH ASPARTATE AMINO TRANSFERASE 15 15 - 37 U/L TBH ALANINE AMINOTRANSFERASE 17 16 - 63 U/L TBH ALKALINE PHOSPHATASE 116 46 - 116 U/L TBH TOTAL PROTEIN 7.7 6.4 - 8.2 g/dL TBH ALBUMIN LEVEL 1.8(L) 3.4 - 5.0 g/dL TBH GLOBULIN 5.9 g/dL TBH ALBUMIN GLOBULIN RATIO 0.3 TBH 08/10/2024 11:0 0 AM EDT 08/10/2024 11:02 AM EDT Narrative CLINISYNC - 08/10/2024 12:20 PM EDT Fidel Reis MD CLINISYNC Final Result CLINISYNC TB * (ABNORMAL) ALL BASIC METABOLIC PANEL (08/10/2024 11:00 AM EDT) SODIUM 136 136 - 145 mmol/L TBH POTASSIUM 3.8 3.5 - 5.1 mmol/L TBH CHLORIDE 103 98 - 107 mmol/L TBH CARBON DIOXIDE 26.5 21.0 - 32.0 mmol/L TBH ANION GAP 10.3 TBH GLUCOSE 243(H) 74 - 106 mg/dL TBH BLOOD UREA NITROGEN 30.0(H) 7.0 - 18.0 mg/dL TBH CREATININE 2.12(H) 0.70 - 1.30 mg/dL TBH TBH EGFR-AF [place] 38(L) >=60 mL/min/1.7 3m 2 TBH TBH EGFR-NON AF [place] 32(L) >=60 mL/min/1.7 3m 2 TBH BUN CREATININE RATIO 14.2 TBH CALCIUM 8.7 8.5 - 10.1 mg/dL TBH 08/10/2024 11:0 0 AM EDT 08/10/2024 11:02 AM EDT Narrative CLINISYNC - 08/10/2024 11:58 AM EDT us Generic External Data Provider CLINISYNC F inal Result CLINISYNC TB * (ABNORMAL) ALL CBC WITH AUTO DIFF (08/10/2024 11:00 AM EDT) TB WBC 13.8(H) 4.0 - 11.0 10 3/uL TBH TBH RBC 2.81(L) 4.70 - 6.10 10 6/uL TBH TBH HGB 7.3(L) 14.0 - 18.0 g/dL TBH TBH HCT 23.4(LL) 42.0 - 54.0 % TBH Comment:RESULTS CALLED TO TABBY RUBALCAVA RN TBH MCV 83.3 80.0 - 94.0 fL TBH TBH MCH 26.0 25.9 - 34.0 pg TBH TBH MCHC 31.2 29.9 - 35.2 g/dL TBH TBH RDW 14.3 11.0 - 15.0 % TBH TBH PLT 319 150 - 450 10 3/uL TBH TBH MPV 8.9(L) 9.5 - 13.5 fL TBH NEUTROPHILS PERCENT AUTO 74.5 43.0 - 75.0 % TBH LYMPHOCYTES PERCENT AUTO 11.5(L) 20.5 - 60.0 % TBH MONOCYTES PERCENT AUTO 8.2 1.7 - 12.0 % TBH TBH EO % 5.0 0.9 - 7.0 % TBH BASOPHILS PERCENT AUTO 0.4 0.2 - 2.0 % TBH IMMATURE GRANULOCYTES PCT AUTO 0.4 0.0 - 0.5 % TBH NEUTROPHILS ABSOLUTE AUTO 10.3(H) 1.4 - 6.5 10 3/uL TBH LYMPHOCYTES ABSOLUTE AUTO 1.6 1.2 - 3.8 10 3/uL TBH MONOCYTES ABSOLUTE AUTO 1.1(H) 0.3 - 0.8 10 3/uL TBH TBH EO # 0.7 0.0 - 0.7 10 3/uL TBH BASOPHILS ABSOLUTE AUTO 0.1 0.0 - 0.1 10 3/uL TBH IMMATURE GRANULOCYTES ABS AUTO 0.06(H) 0.00 - 0.03 10 3/uL TBH 08/10/2024 11:0 0 AM EDT 08/10/2024 11:02 AM EDT Narrative CLINISYNC - 08/10/2024 11:13 AM EDT us Generic External Data Provider CLINISYNC F inal Result CLINISYNC TB documented in this encounter Visit Diagnoses Not on filedocumented in this encounter Care Teams Refueler Relationship Specialty Start Date End Date Fidel Reis MD [address] [place] [phone] PCP - General Family Medicine 11/18/23 Fidel Reis MD [address] [place] [phone] PCP - [facility] 05/05/24 Alvin Gonzalez MA Family Medicine 08/08/24 08/15/24 documented as of this encounter
--- OUTSIDE RECORDS SUMMARY | 2024-08-18 08:53 | XMS_ITS | Clinical Summary ---
Author Organization [facility] Healthcare Address [address] [place] [address] Care Team Providers Care Tile Ditcher Name Role Phone Fidel Reis MD Primary Care Provider [phone] Fidel Reis MD Unavailable Allergies Active Allergy Reactions Criticality Noted Date Comments Omadacycline 02/23/2023 Other Reaction(s): Kidney pain Vancomycin Other,Unknown 06/21/2015 NEPHROTOXICITY States had kidney issues after taking Medications atenolol (Tenormin) 100 MG tabletIndication s:Benign hypertension (CMS/HCC) Take 1 tablet (100 mg) by mouth Daily 30 tablet 08/11/19 24 Active citalopram (CeleXA) 40 MG tabletIndication s:Major depressive disorder, recurrent episode, mild (HCC) (CMS/HCC) Take 1 tablet (40 mg) by mouth Daily 30 tablet 08/11/19 24 Active oxybutynin XL (Ditropan-XL) 15 MG 24 hr tabletIndication s:Incontinence overflow, urine Take 1 tablet (15 mg) by mouth Daily 30 tablet 05/01/19 25 026 Active glipiZIDE (Glucotrol) 10 MG tabletIndication s:Type 2 diabetes mellitus with hyperglycemia, without long-term current use of insulin (CMS/HCC) TAKE 1 TABLET BY MOUTH TWICE DAILY (MORNING AND BEDTIME) 60 tablet 07/04/19 25 Active lisinopril 20 MG tabletIndication s:Benign hypertension (CMS/HCC) Take 1 tablet by mouth once daily 30 tablet 07/25/19 25 Active Januvia 100 MG tabletIndication s:Type 2 diabetes mellitus with hyperglycemia, without long-term current use of insulin (CMS/HCC) Take 1 tablet by mouth once daily 30 tablet 07/25/19 25 Active hydrOXYzine HCl (Atarax) 50 MG tabletIndication s:Pruritus Take 1 tablet (50 mg) by mouth 4 (four) times a day as needed for itching 120 tablet 5 08/01/19 25 Active amLODIPine (Norvasc) 10 MG tabletIndication s:Primary hypertension (CMS/HCC) Take 1 tablet by mouth once daily 30 tablet 08/15/19 25 Active atorvastatin (Lipitor) 40 MG tabletIndication s:Dyslipidemia (CMS/HCC) TAKE 1 TABLET BY MOUTH IN THE MORNING 30 tablet 08/15/19 25 Active lisinopril 20 MG tabletIndication s:Benign hypertension (CMS/HCC) Take 1 tablet by mouth once daily 30 tablet 06/27/19 25 025 Discontinued Januvia 100 MG tabletIndication s:Type 2 diabetes mellitus with hyperglycemia, without long-term current use of insulin (CMS/HCC) Take 1 tablet by mouth once daily 30 tablet 06/27/19 25 025 Discontinued amLODIPine (Norvasc) 10 MG tabletIndication s:Primary hypertension (CMS/HCC) Take 1 tablet by mouth once daily 30 tablet 07/04/19 25 025 Discontinued atorvastatin (Lipitor) 40 MG tabletIndication s:Dyslipidemia (CMS/HCC) TAKE 1 TABLET BY MOUTH IN THE MORNING 30 tablet 07/04/19 25 025 Discontinued hydrOXYzine HCl (Atarax) 50 MG tabletIndication s:Pruritus TAKE 1 TABLET BY MOUTH 4 TIMES DAILY NEEDED FOR ITCHING 30 tablet 07/19/19 25 025 Discontinued(Re order) Active Problems Problem Noted Date Diagnosed Date Class 2 severe obesity due t o excess calories with serious comorbidity and body mass index (BMI) of 36.0 to 36.9 in adult 07/31/2024 Assessment & Plan (07/31/2024 11:20 AM EDT): Weight loss indicated. Urticaria 01/20/2024 Assessment & Plan (01/20/2024 12:25 PM EDT): Unclear cause of hives. Treat with prednisone and use hydroxyzine PRN. Encounter for long-term (current) use of medicat ions 11/18/2023 Benign hypertension 04/06/2023 Assessment & Plan (07/31/2024 11:18 AM EDT): BP controlled and monitor PRN. Assessment & Plan (04/06/2023 10:47 AM EST): BP controlled and monitor PRN. Cauda equina syndrome 04/06/2023 Assessment & Plan (11/18/2023 2:11 PM EDT): Patient stable Paraplegia 04/06/2023 Chronic superficial gastritis 04/06/2023 Assessment & Plan (07/31/2024 11:18 AM EDT): Symptoms controlled with medication and continue. Assessment & Plan (04/06/2023 10:47 AM EST): Symptoms controlled with medication and continue. Eczema, dyshidrotic 04/06/2023 Major depressive disorder, recurrent episode, mi ld (HCC) 04/06/2023 Assessment & Plan (07/31/2024 11:18 AM EDT): Mood controlled with celexa and continue. Assessment & Plan (04/06/2023 10:47 AM EST): Mood controlled with celexa and continue. Obstructive sleep apnea (adult) (pediatric) 11/2023 Incontinence overflow, urine 04/06/2023 Assessment & Plan (07/31/2024 11:18 AM EDT): Symptoms tolerable with medication and continue. Assessment & Plan (04/06/2023 10:47 AM EST): Symptoms tolerable with medication and continue. Recurrent UTI 04/06/2023 Type 2 diabetes mellitus wit h hyperglycemia, without long-term current use of insulin 04/06/2023 Assessment & Plan (07/31/2024 11:18 AM EDT): Reports BS stable and due for A1C. Stick to ADA diet and limit carbs. Assessment & Plan (04/06/2023 10:48 AM EST): Reports BS stable and due for A1C. Stick to ADA diet and limit carbs. Dyslipidemia 04/06/2023 Chronic kidney disease, stage 3a (HCC) 4 Resolved Problems Problem Noted Date Diagnosed Date Resolved Date Pruritus 11/18/2023 01/20/2024 Assessment & Plan (11/18/2023 2:11 PM EDT): C/o itching and try hydroxyzine. Encounters Date Type Department Care Team Description 08/15/2024 Patient Outreach [facility] [address] [place] [phone] Alvin Gonzalez MA 08/15/2024 Telephone [facility] [address] [facility] [address] [place] [phone] Radh[place], [place] reschedule surrgery 08/13/2024 Refill [facility] [address] [place] [address] Fidel Reis MD Primary hypertension (CMS/HCC); Dyslipidemia (CMS/HCC) 08/10/2024 Results Follow-Up [facility] [address] [place] [address] Fidel Reis MD 08/10/2024 Clinisync Result Encounter [facility] External Department Unsolicited Provider, Generic External Data 07/31/2024 10:45 AM EDT Office Visit [facility] [address] [place] [address] Fidel Reis MD Type 2 diabetes mellitus with hyperglycemia, without long-term current use of insulin (CMS/HCC) (Primary Dx); Benign hypertension (CMS/HCC); Major depressive disorder, recurrent episode, mild (HCC) (CMS/HCC); Incontinence overflow, urine; Chronic superficial 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; Urticaria; Pruritus; Annual physical exam; Chronic kidney disease, stage 3a (HCC) ([facility]); Class 2 severe obesity due to excess calories with serious comorbidity and body mass index (BMI) of 36.0 to 36.9 in adult ([facility]); Type 2 diabetes mellitus with other specified complication; Hyperlipidemia, unspecified ([facility]); Pressure ulcer of right heel, unstageable ([facility]); Type 2 diabetes mellitus with other skin ulcer (CODE); Paraplegia, unspecified; Diabetes mellitus due to underlying condition with diabetic polyneuropathy ([facility]) 07/31/2024 Bamboo flowsheet [facility] [address] [place] [address] Fidel Reis MD 07/23/2024 Refill [facility] [address] [place] [address] Fidel Reis MD Benign hypertension ([facility]); Type 2 diabetes mellitus with hyperglycemia, without long-term current use of insulin ([facility]) 07/17/2024 Refill [facility] [address] [place] [address] Fidel Reis MD Pruritus 07/01/2024 Refill [facility] [address] [place] [address] Fidel Reis MD Pruritus; Primary hypertension ([facility]); Dyslipidemia ([facility]); Type 2 diabetes mellitus with hyperglycemia, without long-term current use of insulin ([facility]) 06/24/2024 Refill [facility] [address] [place] [address] Fidel Reis MD Benign hypertension ([facility]); Type 2 diabetes mellitus with hyperglycemia, without long-term current use of insulin ([facility]) 06/17/2024 Refill [facility] [address] [place] [address] Fidel Reis MD Primary hypertension ([facility]); Dyslipidemia ([facility]) 06/06/2024 Clinisync Result Encounter NOMS External Department Unsolicited Provider, Generic External Data 05/30/2024 Clinisync Result Encounter [facility]OMS External Department Unsolicited Provider, Generic External Data 05/22/2024 Refill [facility] [address] [place] [address] Fidel Reis MD Benign hypertension ([facility]) ; Type 2 diabetes mellitus with hyperglycemia, without long-term current use of insulin ([facility]) from Last 3 Months Social History Tobacco Use Types Packs/Day Years Used Date Smoking Tobacco: Never Smokeless Tobacco: Never Tobacco Cessation:Counseling Given: Yes Alcohol Use Standard Drinks/Week Comments Never 0 [...] often do you attend chur ch or jehovah's witness services? Patient declined 10/17/2023 Do you belong to any clubs o r organizations such as adventism groups, unions, fraternal or athletic groups, or [...] and heating? Not hard at all 10/17/2023 [facility] [place] [place] [facility] - Occupational Stress Questionnaire Answer Date [...] any time in the past 12 m [facility], were you homeless or living in a m[facility]p (including now)? No 10/17/2023 Sex and Gender Information Value Date Recorded Sex Assigned at Not on file Legal Sex Male 7:28 PM EDT Gender Identity Not on file Sexual Orientation Not on file Last Filed Vital Signs Vital Sign Reading Time Taken Comments Blood Pressure 142/70 07/31/2024 10:49 AM EDT Pulse 57 07/31/2024 10:49 AM EDT Temperature 36.4 C (97.5 F) 07/31/2024 10:49 AM EDT Respiratory Rate 18 07/31/2024 10:49 AM EDT Oxygen Saturation 98% 07/31/2024 10:49 AM EDT Inhaled Oxygen Concentration - - Weight 114 kg (252 lb) 06/10/2023 11:15 AM EDT Height 180.3 cm (5' 11 ) 07/31/2024 10:49 AM EDT Body Mass Index 36.16 06/10/2023 11:15 AM EDT Plan of Treatment Upcoming Encounters Date Type Department Care Team (Late st Contact Info) Description 02/01/2025 10:30 AM EST Office Visit [facility] [address] [place] [address] Fidel Reis MD [address] [place] [address] Health Maintenance Due Date Last Done Comments CT Colonography 1961 FIT-DNA 1961 FIT 1961 Sigmoidoscopy 1961 Diabetes: Retinopathy Screening 07/08/1971 Diabetes: Urine Protein Screening 04/24/2016 016 Diabetes: Hemoglobin A1C 10/06/2022 2022, 03/29 FOBT 06/26/2023 06/25/2022 Influenza Vaccine (Season Ended) 2024 02/11/2023, 04/10/2017, 01/01/2015, Additional history exists Colonoscopy 06/26/2032 06/26/2022, 06/26/2022 Colorectal Cancer Screening 06/26/2032 Procedures Procedure Name Priority Date/Time Associated Diagnosis Comments MLR HEMOGLOBIN A1C Routine 08/10/2024 11 :00 AM EDT SRMCOH PROSTATE SPECIFIC ANTIGEN SCRN Routine 08/10/2024 11:00 AM EDT [facility] FERRITIN Routine 08/10/2024 11:00 AM EDT METRO IRON AND TIBC Routine 08/10/2024 1 1:00 AM EDT ALL THYROID STIM HORMONE Routine 08/10/2024 11:00 AM EDT ALL LIPID PROFILE (FASTING) Routine 08/10/2024 11:00 AM EDT HMHP LIVER PANEL Routine 08/10/2024 11:0 0 AM EDT ALL BASIC METABOLIC PANEL Routine 08/10/2024 11:00 AM EDT ALL CBC WITH AUTO DIFF Routine 08/10/2024 11:00 AM EDT ALL CBC WITH AUTO DIFF Routine 06/06/2024 10:30 AM EDT CCF FERRITIN Routine 05/30/2024 10:45 AM EST METRO IRON AND TIBC Routine 05/30/2024 1 0:45 AM EST ALL C REACTIVE PROTEIN Routine 05/30/2024 10:45 AM EST ALL BASIC METABOLIC PANEL Routine 05/30/2024 10:45 AM EST ALL SED RATE Routine 05/30/2024 10:45 AM EST ALL CBC WITH AUTO DIFF Routine 05/30/2024 10:45 AM EST from Last 3 Months Results * SRMCOH PROSTATE SPECIFIC ANTIGEN SCRN (08/10/2024 11:00 AM EDT) PROSTATE SPECIFIC ANTIGEN SCRN 0.44 <=4.00 ng/mL TBH 08/10/2024 11:0 0 AM EDT 08/10/2024 11:02 AM EDT Narrative CLINISYNC - 08/10/2024 12:40 PM EDT us Fidel Reis MD CLINISYYASMIN Final Result [facility]NC [facility] * (ABNORMAL) MLR HEMOGLOBIN A1C (08/10/2024 11:00 AM EDT) GLYCOHEMOGLOBIN A1C 6.8(H) 4.5 - 6.2 % TBH Comment: ADA RECOMMENDED LIMIT 4.0 - 6.0 ADA THERAPEUTIC TARGET < 7.0 ACTION SUGGESTED > 7.0 ESTIMATED AVERAGE GLUCOSE 148 mg/dL [facility] 08/10/2024 11:0 0 AM EDT 08/10/2024 11:02 AM EDT Narrative CLINISYNC - 08/10/2024 12:40 PM EDT Fidel Reis MD CLINISYNC Final Result Performing Organization Address [facility] de Phone Number CLINISYMO TB * (ABNORMAL) METRO IRON AND TIBC (08/10/2024 11:00 AM EDT) Only the most recent of2 resultswithin the time period is included. TBH IRON 18.0(L) 65.0 - 175.0 ug/dL TBH TBH TOTAL IRON BINDING CAPACITY 140.0(L) 250.0 - 450.0 ug/dL TBH TBH PERCENT IRON SATURATION 12.9 % [facility]H 08/10/2024 11:0 0 AM EDT 08/10/2024 11:02 AM EDT Narrative CLINISYNC - 08/10/2024 12:29 PM EDT Generic External Data Provider CLINISYNC F inal Result Performing Organization Address [facility] de Phone Number CLINISYNC TB * (ABNORMAL) HP LIVER PANEL [...] CLINISYNC - 08/10/2024 12:20 PM EDT Fidel VEGA Final Result Performing Organization Address [facility] Co de Phone Number CLINJESSEEMO TB * (ABNORMAL) CCF FERRITIN (08/10/2024 11:00 AM EDT) Only the most recent of2 resultswithin the time period is included. FERRITIN 622.0(H) 26.0 - 388.0 ng/mL TBH 08/10/2024 11:0 0 AM EDT 08/10/2024 11:02 AM EDT Narrative CLINISYNC - 08/10/2024 12:40 PM EDT Generic External Data Provider CLINISYNC F inal Result Performing Organization Address [facility] de Phone Number CLINJESSEEMO TB * ALL THYROID STIM HORMONE (08/10/2024 11:00 AM EDT) THYROID STIMULATING HORMONE 1.267 0.358 - 3.740 uIU/mL TBH 08/10/2024 11:0 0 AM EDT 08/10/2024 11:02 AM EDT Narrative CLINISYNC - 08/10/2024 12:20 PM EDT Fidel VEGA Final Result Performing Organization Address [facility] de Phone Number CLINJESSEEMO TB * (ABNORMAL) ALL LIPID PROFILE (FASTING) (08/10/2024 11:00 AM EDT) TRIGLYCERIDES 58 <=150 mg/dL TBH CHOLESTEROL 85 <=200 mg/dL TBH HDL CHOLESTEROL 29(L) 40 - 60 mg/dL TBH Comment: > or =60 mg/dl - LOW [...] 12:20 PM EDT us Fidel Reis MD CLINISYNC Final Result [facility] * (ABNORMAL) ALL CBC WITH AUTO DIFF (08/10/2024 11:00 AM EDT) Only the most recent of3 resultswithin the time period is included. TBH WBC 13.8(H) 4.0 - 11.0 10 3/uL TBH TBH RBC 2.81(L) 4.70 - 6.10 10 6/uL TBH TBH HGB 7.3(L) 14.0 - 18.0 g/dL TBH TBH HCT 23.4(LL) 42.0 - 54.0 % TBH Comment:RESULTS CALLED TO TABBY RUBALCAVA RN TB MCV 83.3 80.0 - 94.0 fL TBH [...] External Data Provider CLINISYNC F inal Result [facility] * (ABNORMAL) ALL BASIC METABOLIC PANEL (08/10/2024 11:00 AM EDT) Only the most recent of2 resultswithin the time period is included. SODIUM 136 136 - 145 mmol/L TBH POTASSIUM 3.8 3.5 - 5.1 mmol/L TBH CHLORIDE 103 98 - 107 mmol/L TBH CARBON DIOXIDE 26.5 21.0 - 32.0 mmol/L TBH ANION GAP 10.3 TBH GLUCOSE 243(H) 74 - 106 mg/dL TBH BLOOD UREA NITROGEN 30.0(H) 7.0 - 18.0 mg/dL TBH CREATININE 2.12(H) 0.70 - 1.30 mg/dL TBH TBH EGFR-AF MICRONESIAN 38(L) >=60 mL/min/1.7 3m 2 TBH TBH EGFR-NON AF MICRONESIAN 32(L) >=60 mL/min/1.7 3m 2 TBH BUN CREATININE RATIO 14.2 TBH CALCIUM 8.7 8.5 - 10.1 mg/dL TBH 08/10/2024 11:0 0 AM EDT 08/10/2024 11:02 AM EDT Narrative CLINISYNC - 08/10/2024 11:58 AM EDT Generic External Data Provider CLINISYNC F inal Result Performing Organization Address [facility] Co de Phone Number CLINISYNC TBH * (ABNORMAL) ALL SED RATE (05/30/2024 10:45 AM EST) TBH SED RATE 92(H) <=20 mm/hr TBH 05/30/2024 10:4 5 AM EST 05/30/2024 11:09 AM EST Narrative CLINISYNC - 05/30/2024 11:28 AM EST Generic External Data Provider CLINISYNC F inal Result Performing Organization Address [facility] de Phone Number CLINISYNC TBH * (ABNORMAL) ALL C REACTIVE PROTEIN (05/30/2024 10:45 AM EST) C REACTIVE PROTEIN 8.37(H) <=0.50 mg/dL TBH 05/30/2024 10:4 5 AM EST 05/30/2024 11:09 AM EST Narrative CLINISYNC - 05/30/2024 11:32 AM EST Generic External Data Provider CLINISYNC F inal Result Performing Organization Address [facility] de Phone Number CLINISYNC TB from Last 3 Months Insurance BCBS MEDICARE Care Teams Tile Ditcher Relationship Specialty Start Date End Date Fidel Reis MD [address] [place] [phone] PCP - General Family Medicine 11/18/23 Fidel Reis MD [address] [place] [address] PCP - [facility] 05/05/24
--- OUTSIDE RECORDS SUMMARY | 2024-08-18 08:53 | XMS_ITS | Encounter Summary ---
Author Organization [facility] Address [address] [place] [address] Care Team Providers Care Turpentine Distiller Name Role Phone Fidel Reis MD Primary Care Provider Fidel Reis MD Unavailable Alvin Gonzalez MA Unavailable Unavailable Reason for Visit * Reason Comments Med Refill Encounter Details Date Type Department Care Team (Late st Contact Info) Description 08/13/2024 [facility] [address] [place] [address] Fidel Reis MD [address] [place] [address] Primary hypertension (CMS/HCC); Dyslipidemia (CMS/HCC) Social History [...] week 10/17/2023 How often do you attend [facility] or yarsani services? Patient declined 10/17/2023 Do you belong to any clubs o r organizations such as pentecostalism groups, unions, fraternal or athletic groups, or [...] and heating? Not hard at all 10/17/2023 [facility] of Occupat ional Health - Occupational Stress [...] any time in the past 12 m [facility], were you homeless or living in a detention (including now)? No 10/17/2023 Sex and Gender Information Value Date Recorded Sex Assigned at Not on file Legal Sex Male 7:28 PM EDT Gender Identity Not on file Sexual Orientation Not on file documented as of this encounter Miscellaneous Notes * Telephone Encounter - AMRIK MEHTA - 08/14/2024 10:23 AM EDT MEDICATION SENT TO [facility] documented in this encounter Plan of Treatment Upcoming Encounters Date Type Department Care Team (Late st Contact Info) Description 02/01/2025 10:30 AM EST Office Visit [facility] [address] [place] [address] Fidel Reis MD [address] [place] [address] documented as of this encounter Visit Diagnoses Diagnosis Primary hypertension (CMS/HCC) Unspecified essential hypertension Dyslipidemia (CMS/HCC) Other and unspecified hyperlipidemia documented in this encounter Care Teams Turpentine Distiller Relationship Specialty Start Date End Date Fidel Reis MD [address] [place] [address] PCP - General Family Medicine 11/18/23 Fidel Reis MD [address] [place] [address] PCP - [facility] 05/05/24 Alvin Gonzalez MA Family Medicine 08/08/24 08/15/24 documented as of this encounter
--- OUTSIDE RECORDS SUMMARY | 2024-08-18 08:53 | XMS_ITS | Encounter Summary ---
Author Organization [facility] Address [address] [place] [address] Care Team Providers Care Tannery Gummer Name Role Phone Fidel eRis MD Primary Care Provider [phone] Fidel Reis MD Unavailable Fidel Reis MD Primary Care Provider [phone] Fidel Reis MD Primary Care Provider [phone] Fidel Reis MD Primary Care Provider [phone] Fidel Reis MD Unavailable Alvin Gonzalez MA Unavailable Unavailable Encounter Details Date Type Department Care Team (Late st Contact Info) Description 09/08/2022 Abstract [facility] [address] [phone] Klaus Brar MD [address] [address] Social History Tobacco Use Types [...] [facility] [address] [place] [phone] Fidel Reis MD [address] [place] [address] documented as of this encounter Visit Diagnoses Not on filedocumented in this encounter Care Teams Tannery Gummer Relationship Specialty Start Date End Date Fidel Reis MD PCP - General Family Medicine 12/10/22 05/11/23 Fidel Reis MD [address] [place] [address] PCP - [facility] 02/26/23 Fidel Reis MD [address] [place] [address] PCP - General Family Medicine 05/12/23 08/29/23 Fidel Reis MD [address] [place] [address] PCP - General Family Medicine 08/30/23 08/30/23 Fidel Reis MD [address] [place] [address] PCP - General Family Medicine 11/18/23 Fidel Reis MD [address] [place] [address] PCP - [facility] 05/05/24 Alvin Gonzalez MA Family Medicine 08/08/24 08/15/24 documented as of this encounter
--- OUTSIDE RECORDS SUMMARY | 2024-08-18 08:53 | XMS_ITS | Encounter Summary ---
Author Organization [facility] Address [address] [place] [address] Care Team Providers Care Poultry Processing Supervisor Name Role Phone Fidel Reis MD Primary Care Provider [phone] Fidel Reis MD Unavailable Fidel Reis MD Primary Care Provider [phone] Fidel Reis MD Primary Care Provider [phone] Fidel Reis MD Primary Care Provider [phone] Fidel Reis MD Unavailable Alvin Gonzalez MA Unavailable Unavailable Encounter Details Date Type Department Care Team (Late st Contact Info) Description 04/06/2023 Abstract [facility] [address] [place] [address] Fidel Reis MD [address] [place] [address] Social History Tobacco Use Types Packs/Day Years [...] 02/01/2025 10:30 AM EST Office Visit [facility] [address] [place] [address] Fidel Reis MD [address] [place] [address] documented as of this encounter Visit Diagnoses Not on filedocumented in this encounter Care Teams Poultry Processing Supervisor Relationship Specialty Start Date End Date Fidel Reis MD PCP - General Family Medicine 12/10/22 05/11/23 Fidel Reis MD [address] [place] [address] PCP - [facility] 02/26/23 Fidel Reis MD [address] [place] [address] PCP - General Family Medicine 05/12/23 08/29/23 Fidel Reis MD [address] [place] [address] PCP - General Family Medicine 08/30/23 08/30/23 Fidel Reis MD [address] [place] [address] PCP - General Family Medicine 11/18/23 Fidel Reis MD [address] [place] [address] PCP - [facility] 05/05/24 Alvin Gonzalez MA Family Medicine 08/08/24 08/15/24 documented as of this encounter
--- OUTSIDE RECORDS SUMMARY | 2024-08-18 08:53 | XMS_ITS | Encounter Summary ---
Author Organization [facility] Healthcare Address [address] [place] [address] Care Team Providers Care Smoke Jumper Name Role Phone Fidel Reis MD Primary Care Provider [phone] Fidel Reis MD Unavailable Alvin Gonzalez MA Unavailable Unavailable Encounter Details Date Type Department Care Team (Late st Contact Info) Description 08/15/2024 Patient Outreach [facility] [address] [place] [phone] Alvin Gonzalez MA Social History Tobacco Use Types Packs/Day Years [...] often do you attend chur ch or quaker services? Patient declined 10/17/2023 Do you belong to any clubs o r organizations such as anabaptist groups, unions, fraternal or athletic groups, or [...] and heating? Not hard at all 10/17/2023 [facility] - Occupational Stress [...] any time in the past 12 m [facility], were you homeless or living in a alf (including now)? No 10/17/2023 Sex and Gender Information Value Date Recorded Sex Assigned at Not on file Legal Sex Male 7:28 PM EDT Gender Identity Not on file Sexual Orientation Not on file documented as of this encounter Progress Notes * Alvin Gonzalez MA - 08/15/2024 1:38 PM EDT Pt returned my call and declined need for CCM program at this time. Head Of Acquisitions welcomed pt to call backshould he change his mind. documented in this encounter Plan of Treatment Upcoming Encounters Date Type Department Care Team (Late st Contact Info) Description 02/01/2025 10:30 AM EST Office Visit [facility] [address] [place] [address] Fidel Reis MD [address] [place] [address] documented as of this encounter Visit Diagnoses Diagnosis Type 2 diabetes mellitus with hyperglycemia, without long-term current use of insulin ([facility])- Primary Benign hypertension ([facility]) Essential hypertension, benign documented in this encounter Care Teams Smoke Jumper Relationship Specialty Start Date End Date Fidel Reis MD [address] [place] [phone] PCP - General Family Medicine 11/18/23 Fidel Reis MD [address] [place] [phone] PCP - ACO Reach 05/05/24 Alvin Gonzalez MA Family Medicine 08/08/24 08/15/24 documented as of this encounter
== END 2024-08-18 08:50 | disposition home or self-care (01) ==
LOC: WC 08:49
PROVIDERS: PCP Family Medicine; Visit Provider Podiatrist Foot & Ankle Surgery
DX: L97.312 Non-pressure chronic ulcer of right 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 (principal); L89.610 Pressure ulcer of right heel, unstageable; L89.893 Pressure ulcer of other site, stage 3; L89.512 Pressure ulcer of right ankle, stage 2; L89.620 Pressure ulcer of left heel, unstageable
CPT/HCPCS: G0463

== ENCOUNTER 2024-09-11 11:29 | Outpatient (OUT) | payer BC, MEDICARE, SELFPAY ==
[2024-09-11 12:10] LABS: Basophils Absolute Auto 0.1 10^3/uL (0.0-0.1); Basophils Percent Auto 0.4 % (0.2-2.0); Eosinophils Absolute Auto 1.2 10^3/uL (0.0-0.7); Hemoglobin 7.4 g/dL (14.0-18.0); Immature Granulocytes Abs Auto 0.08 10^3/uL (0.00-0.03); Immature Granulocytes Pct Auto 0.6 % (0.0-0.5); Lymphocytes Absolute Auto 1.6 10^3/uL (1.2-3.8); Lymphocytes Percent Auto 12.9 % (20.5-60.0); Mean Corpuscular HGB Conc 31.1 g/dL (29.9-35.2); Mean Corpuscular Hemoglobin 26.3 pg (25.9-34.0); Mean Corpuscular Volume 84.7 fL (80.0-94.0); Mean Platelet Volume 8.7 fL (9.5-13.5); Monocytes Absolute Auto 0.9 10^3/uL (0.3-0.8); Monocytes Percent Auto 7.2 % (1.7-12.0); Neutrophils Absolute Auto 8.9 10^3/uL (1.4-6.5); Neutrophils Percent Auto 69.9 % (43.0-75.0); Platelet Count 295 10^3/uL (150-450); Red Blood Count 2.81 10^6/uL (4.70-6.10); Red Cell Distribution Width 14.5 % (11.0-15.0); White Blood Count 12.7 10^3/uL (4.0-11.0)
[2024-09-11 12:20] LABS: Anion Gap 11.6; BUN Creatinine Ratio 12.7; Calcium 8.9 mg/dL (8.5-10.1); Carbon Dioxide 26.5 mmol/L (21.0-32.0); Chloride 106 mmol/L (98-107); Estimated GFR (African America 40 (>=60 mL/min/1.73m^2); Estimated GFR (Non-African Ame 33 (>=60 mL/min/1.73m^2); Glucose 200 mg/dL (74-106); Potassium 4.1 mmol/L (3.5-5.1); Sodium 140 mmol/L (136-145)
[2024-09-11 12:21] LABS: Hematocrit 23.8 % (42.0-54.0)
== END 2024-09-11 11:30 | disposition home or self-care (01) ==
PROVIDERS: PCP Family Medicine; Visit Provider Internal Medicine Hematology & Oncology
DX: D72.829 Elevated white blood cell count, unspecified (principal); D64.9 Anemia, unspecified; D50.9 Iron deficiency anemia, unspecified; K90.9 Intestinal malabsorption, unspecified
CPT/HCPCS: 36415; 80048; 82728; 83540; 83550; 85025

== ENCOUNTER 2024-09-26 07:43 | Outpatient (RCR) | payer BC, MEDICARE, SELFPAY ==
[2024-09-26 11:30] VITALS: BP 133/69; PULSE 58; TEMP 36.3; O2SAT 98
[2024-09-26] MEDS: FERRIC CARBOXYMALTOSE 750 MG in 0.9 % SODIUM CHLORIDE 250 ML 795 MG IV (11:49)
[2024-09-26 11:54] LABS: Hemoglobin 7.4 g/dL (14.0-18.0); Immature Granulocytes Abs Auto 0.07 10^3/uL (0.00-0.03); Immature Granulocytes Pct Auto 0.5 % (0.0-0.5); Lymphocytes Absolute Auto 1.8 10^3/uL (1.2-3.8); Mean Corpuscular HGB Conc 31.9 g/dL (29.9-35.2); Mean Corpuscular Hemoglobin 26.6 pg (25.9-34.0); Mean Corpuscular Volume 83.5 fL (80.0-94.0); Platelet Count 306 10^3/uL (150-450); Red Blood Count 2.78 10^6/uL (4.70-6.10); White Blood Count 13.5 10^3/uL (4.0-11.0)
[2024-09-26 12:09] LABS: Hematocrit 23.2 % (42.0-54.0)
[2024-09-26 12:14] LABS: Alanine Aminotransferase 11 U/L (16-63); Albumin Globulin Ratio 0.3; Albumin Level 1.7 g/dL (3.4-5.0); Alkaline Phosphatase 128 U/L (46-116); Anion Gap 13.0; Aspartate Amino Transferase 11 U/L (15-37); Blood Urea Nitrogen 34.0 mg/dL (7.0-18.0); Calcium 8.7 mg/dL (8.5-10.1); Carbon Dioxide 24.0 mmol/L (21.0-32.0); Chloride 106 mmol/L (98-107); Estimated GFR (African America 47 (>=60 mL/min/1.73m^2); Estimated GFR (Non-African Ame 39 (>=60 mL/min/1.73m^2); Globulin 6.1 g/dL; Glucose 204 mg/dL (74-106); Potassium 4.0 mmol/L (3.5-5.1); Sodium 139 mmol/L (136-145); Total Protein 7.8 g/dL (6.4-8.2)
== END 2024-09-27 08:00 | disposition home or self-care (01) ==
LOC: HEMC 07:43
PROVIDERS: PCP Family Medicine; Visit Provider Internal Medicine Hematology & Oncology
DX: D50.9 Iron deficiency anemia, unspecified (principal); D72.829 Elevated white blood cell count, unspecified; K90.9 Intestinal malabsorption, unspecified; D64.9 Anemia, unspecified; E11.9 Type 2 diabetes mellitus without complications; I10 Essential (primary) hypertension; G47.30 Sleep apnea, unspecified; Z90.49 Acquired absence of other specified parts of digestive tract; Z79.84 Long term (current) use of oral hypoglycemic drugs
CPT/HCPCS: 80053; 85025; 96365; G0463; J1439

== ENCOUNTER 2024-10-11 12:57 | Outpatient (OUT) | payer BC, MEDICARE, SELFPAY ==
--- OUTSIDE RECORDS SUMMARY | 2024-08-29 06:30 | XMS_ITS ---
Author Organization The [facility] in [place] Address [address] [place] [address] Care Team Providers Care Assembler Gold Frame Name Role Phone Fidel Reis MD Primary Care Provider Unavailab Freddy Prieto Unavailable [phone] Nina River Unavailable [phone] REASON FOR VISIT MD Encounters Encounter Location Date Provider Diagnosis [facility] On[facility] [address] [place] [address] 08/29/2024 Nina River Plan Of Treatment Next Appt Details Provider Name:Nina River , 11/28/2024 11:15:00 AM, [address] [place] [address], [address], Provider Name:Raghavendra Jude, 06/13/2025 11:00:00 AM, [address] [place] [address], [address], Progress Notes * Ganga MIRANDA LDOB:1960 (64 yo M)Acc No.[id number]:08/29/2024 UNLOCKED PROGRESS NOTE Progress Notes Patient: Ganga LOPEZ Provider: Geoff River M.D. :1960 A ge:64 Y S ex:Male Date:08/29/2024 Address:[address] [facility], [place], [id number] Pcp:Fidel Reis MD Subjective: * Chief Complaints: * 1 . MD. * Medical History: Objective: * Vitals: Assessment: Plan: * Treatment: * * Electronic signature of Humberto River MD, [id number] on 10/11/2024 at 01:00 PM EDT Sign off status: Pending Visit Status: C ANC (Cancelled) * Provider: Geoff River M.D. Date: 0 08/29/2024 Generated for Jelly recio/Renetta/Geraldsmitting on: 10/11/2024 01:00 PM EDT
--- OUTSIDE RECORDS SUMMARY | 2024-09-26 07:45 | XMS_ITS ---
Author Organization The [facility] in [place] Address [address] [place] [address] Care Team Providers Care Mountain Guide Name Role Phone Fidel Reis MD Primary Care Provider Unavailab Freddy Prieto Unavailable [phone] Nina River Unavailable [phone] REASON FOR VISIT MD Encounters Encounter Location Date Provider Diagnosis [facility] On[facility] [address] [place] [address] 09/26/2024 Nina River Plan Of Treatment Next Appt Details Provider Name:Nina River , 11/28/2024 11:15:00 AM, [address] [place] [address], [address], Provider Name:Raghavendra aMrtins, 06/13/2025 11:00:00 AM, [address] [place] [address], [address], Progress Notes * Ganga MIRANDA LDOB:1960 (64 yo M)Acc No.[id number]:09/26/2024 UNLOCKED PROGRESS NOTE Progress Notes Patient: Ganga LOPEZ Provider: Geoff River M.D. :1960 A ge:64 Y S ex:Male Date:09/26/2024 Address:[address] [facility], [place], [id number] Pcp:Fidel Reis MD Subjective: * Chief Complaints: * 1 . MD. * Medical History: Objective: * Vitals: Assessment: Plan: * Treatment: * * Electronic signature of Humberto River MD, [id number] on 10/11/2024 at 12:59 PM EDT Sign off status: Pending Visit Status: V OICEMSG (Voice) * Provider: Geoff River M.D. Date: 09/26/2024 Generated for Jelly recio/Renetta/eTransmitting on: 10/11/2024 12:59 PM EDT
--- OUTSIDE RECORDS SUMMARY | 2024-09-26 08:15 | XMS_ITS ---
Author Organization The [facility] in [place] Address [address] [place] [address] Care Team Providers Care Strip Cleaner Name Role Phone Fidel Reis MD Primary Care Provider Unavailab Freddy Prieto Unavailable [phone] Nina River Unavailable [phone] REASON FOR VISIT CL1.5 Encounters Encounter Location Date Provider Diagnosis [facility] Oncology [address] [place] [address] 09/26/2024 Nina River Plan Of Treatment Next Appt Details Provider Name:Nina River , 11/28/2024 11:15:00 AM, [address] [place] [address], [address], Provider Name:Raghavendra Eliezer, 06/13/2025 11:00:00 AM, [address] [place] [address], [address], Progress Notes * Ganga MIRANDA LDOB:1960 (64 yo M)Acc No.[id number]:09/26/2024 UNLOCKED PROGRESS NOTE Progress Note Patient: Ganga LOPEZ Provider: Geoff River M.D. :1960 A ge:64 Y S ex:Male Date:09/26/2024 Address:[address] [facility], [facility] Pcp:Fidel Reis MD Subjective: * Chief Complaints: * 1 . CL1.5. * Medical History: Objective: * Vitals: Assessment: Plan: * Treatment: * * Electronic signature of Humberto River MD, [id number] on 10/11/2024 at 12:59 PM EDT Sign off status: Pending Visit Status: P EN (Pending) * Provider: Geoff River M.D. Date: 09/26/2024 Generated for Jelly recio/Renetta/eTransmitting on: 10/11/2024 12:59 PM EDT
--- OUTSIDE RECORDS SUMMARY | 2024-10-11 13:00 | XMS_ITS | Encounter Summary ---
Author Organization [facility] Address [address] [place] [address] Care Team Providers Care Sausage Canner Name Role Phone Fidel Reis MD Unavailable Fidel Reis MD Primary Care Provider [phone] Fidel Reis MD Primary Care Provider [phone] Fidel Reis MD Primary Care Provider [phone] Fidel Reis MD Unavailable Alvin Gonzalez MA Unavailable [phone] Encounter Details Date Type Department Care Team (Late Contact Info) Description 06/11/2023 Abstract [facility] [address] [place] [address] Jj Bah MD [address] [place] [address] [place] [address] Social History Tobacco Use Types [...] Office Visit [facility] [address] [place] [address] Fidel Reis MD [address] [place] [address] documented as of this encounter Visit Diagnoses Not on filedocumented in this encounter Care Teams Sausage Canner Relationship Specialty Start Date End Date Fidel Reis MD [address] [place] [address] PCP - [facility] 02/26/23 Fidel Reis MD [address] [place] [address] PCP - General Family Medicine 05/12/23 08/29/23 Fidel Reis MD [address] [place] [address] PCP - General Family Medicine 08/30/23 08/30/23 Fidel Reis MD [address] [place] [address] PCP - General Family Medicine 11/18/23 Fidel Reis MD [address] [place] [address] PCP - [facility] 05/05/24 08/29/24 Alvin Gonzalez MA [address] [place] [address] Family Medicine 08/08/24 08/15/24 documented as of this encounter
--- OUTSIDE RECORDS SUMMARY | 2024-10-11 13:00 | XMS_ITS | Encounter Summary ---
Author Organization [facility] Address [address] [place] [address] Care Team Providers Care Account Assistant Name Role Phone Fidel Reis MD Unavailable Fidel Reis MD Primary Care Provider [phone] Fidel Reis MD Primary Care Provider [phone] Fidel Reis MD Primary Care Provider [phone] Fidel Reis MD Unavailable Alvin Gonzalez MA Unavailable [phone] Encounter Details Date Type Department Care Team (Late Contact Info) Description 06/08/2023 Orders Only [facility] [address] [place] [address] Jonathan Bah, DPM [address] [address] Social History Tobacco Use Types [...] 02/01/2025 10:30 AM EST Office Visit [facility] [address] [place] [address] Fidel Reis MD [address] [place] [address] documented as of this encounter Procedures Procedure Name Priority Date/Time Associated Diagnosis Comments SCANNED LABS Routine 06/08/2023 2:20 PM EDT documented in this encounter Results * SCANNED LABS (06/08/2023 2:20 PM EDT) Jonathan Bah DPM LAB CHG PERFORMABLES Final Result documented in this encounter Visit Diagnoses Not on filedocumented in this encounter Care Teams Account Assistant Relationship Specialty Start Date End Date Fidel Reis MD [address] [place] [address] PCP - [facility] 02/26/23 Fidel Reis MD [address] [place] [address] PCP - General Family Medicine 05/12/23 08/29/23 Fidel Reis MD [address] [place] [address] PCP - General Family Medicine 08/30/23 08/30/23 Fidel Reis MD [address] [place] [address] PCP - General Family Medicine 11/18/23 Fidel Reis MD [address] [place] [address] PCP - [facility] 05/05/24 08/29/24 Alvin Gonzalez, REBEL [address] [place] [address] Family Medicine 08/08/24 08/15/24 documented as of this encounter
--- OUTSIDE RECORDS SUMMARY | 2024-10-11 13:00 | XMS_ITS | Encounter Summary ---
Author Organization [facility] Address [address] [place] [address] Care Team Providers Care Quality Analyst/Technical Writer Name Role Phone Fidel Reis MD Unavailable Fidel Reis MD Primary Care Provider [phone] Fidel Reis MD Primary Care Provider [phone] Fidel Reis MD Primary Care Provider [phone] Fidel Reis MD Unavailable Alvin Gonzalez MA Unavailable [phone] Encounter Details Date Type Department Care Team (Late st Contact Info) Description 06/07/2023 Abstract [facility] [address] [place] [address] Jonathan Bah DPM [address] [address] Social History Tobacco Use Types [...] Office Visit [facility] [address] [place] [address] Fidel Reis MD [address] [place] [address] documented as of this encounter Visit Diagnoses Not on filedocumented in this encounter Care Teams Quality Analyst/Technical Writer Relationship Specialty Start Date End Date Fidel Reis MD [address] [place] [address] PCP - [employer] 02/26/23 Fidel Reis MD [address] [place] [address] PCP - General Family Medicine 05/12/23 08/29/23 Fidel Reis MD [address] [place] [address] PCP - General Family Medicine 08/30/23 08/30/23 Fidel Reis MD [address] [place] [address] PCP - General Family Medicine 11/18/23 Fidel Reis MD [address] [place] [address] PCP - [facility] 05/05/24 08/29/24 Alvin Gonzalez MA [address] [place] [address] Family Medicine 08/08/24 08/15/24 documented as of this encounter
--- OUTSIDE RECORDS SUMMARY | 2024-10-11 13:00 | XMS_ITS | Encounter Summary ---
Author Organization [facility] Address [address] [place] [address] Care Team Providers Care Office Nurse Name Role Phone Fidel Reis MD Unavailable Fidel Reis MD Primary Care Provider [phone] Fidel Reis MD Primary Care Provider [phone] Fidel Reis MD Primary Care Provider [phone] Fidel Reis MD Unavailable Alvin Gonzalez MA Unavailable [phone] Encounter Details Date Type Department Care Team (Late st Contact Info) Description 06/17/[address] [facility] [address] [place] [address] Fidel Reis MD [address] [place] [address] Social History Tobacco Use Types [...] 02/01/2025 10:30 AM EST Office Visit [facility] [address] [place] [address] Fidel Reis MD [address] [place] [address] documented as of this encounter Procedures Procedure Name Priority Date/Time Associated Diagnosis Comments WOUND CULTURE Routine 06/16/2023 11:04 AM EDT documented in this encounter Results * Wound culture (06/16/2023 11:04 AM EDT) Swab Fidel Reis MD LAB MICROBIOLOGY - GENERAL ORDER LUZ ELENA Final Result documented in this encounter Visit Diagnoses Not on filedocumented in this encounter Care Teams Office Nurse Relationship Specialty Start Date End Date Fidel Reis MD [address] [place] [address] PCP - [facility] 02/26/23 Fidel Reis MD [address] [place] [address] PCP - General Family Medicine 05/12/23 08/29/23 Fidel Reis MD [address] [place] [address] PCP - General Family Medicine 08/30/23 08/30/23 Fidel Reis MD [address] [place] [address] PCP - General Family Medicine 11/18/23 Fidel Reis MD [address] [place] [address] PCP - [facility] 05/05/24 08/29/24 Alvin Gonzalez MA [address] [place] [address] Family Medicine 08/08/24 08/15/24 documented as of this encounter
--- OUTSIDE RECORDS SUMMARY | 2024-10-11 13:00 | XMS_ITS | Encounter Summary ---
Author Organization [facility] Address [address] [place] [address] Care Team Providers Care Railroad Emergency Services Manager Name Role Phone Fidel Reis MD Unavailable Fidel Reis MD Primary Care Provider [phone] Fidel Reis MD Primary Care Provider [phone] Fidel Reis MD Primary Care Provider [phone] Fidel Reis MD Unavailable Alvin Gonzalez MA Unavailable [phone] Encounter Details Date Type Department Care Team (Late st Contact Info) Description 06/07/2023 Abstract [facility] [address] [place] [address] Jonathan Bah DPM [address] [address] Social History Tobacco Use Types [...] Office Visit [facility] [address] [place] [address] Fidel Reis MD [address] [place] [address] documented as of this encounter Visit Diagnoses Not on filedocumented in this encounter Care Teams Railroad Emergency Services Manager Relationship Specialty Start Date End Date Fidel Reis MD [address] [place] [address] PCP - [employer] 02/26/23 Fidel Reis MD [address] [place] [address] PCP - General Family Medicine 05/12/23 08/29/23 Fidel Reis MD [address] [place] [address] PCP - General Family Medicine 08/30/23 08/30/23 Fidel Reis MD [address] [place] [address] PCP - General Family Medicine 11/18/23 Fidel Reis MD [address] [place] [address] PCP - [facility] 05/05/24 08/29/24 Alvin Gonzalez MA [address] [place] [address] Family Medicine 08/08/24 08/15/24 documented as of this encounter
--- OUTSIDE RECORDS SUMMARY | 2024-10-11 13:00 | XMS_ITS | Encounter Summary ---
Author Organization [facility] Address [address] [place] [address] Care Team Providers Care Director Marketing Name Role Phone Fidel Reis MD Unavailable Fidel Reis MD Primary Care Provider [phone] Fidel Reis MD Primary Care Provider [phone] Fidel Reis MD Primary Care Provider [phone] Fidel Reis MD Unavailable Alvin Gonzalez MA Unavailable [phone] Encounter Details Date Type Department Care Team (Late st Contact Info) Description 06/17/2023 Abstract [facility] [address] [place] [address] Jonathan Bah DPM [address] [address] Social History Tobacco Use Types [...] Office Visit [facility] [address] [place] [address] Fidel Reis MD [address] [place] [address] documented as of this encounter Visit Diagnoses Not on filedocumented in this encounter Care Teams Director Marketing Relationship Specialty Start Date End Date Fidel Reis MD [address] [place] [address] PCP - [employer] 02/26/23 Fidel Reis MD [address] [place] [address] PCP - General Family Medicine 05/12/23 08/29/23 Fidel Reis MD [address] [place] [address] PCP - General Family Medicine 08/30/23 08/30/23 Fidel Reis MD [address] [place] [address] PCP - General Family Medicine 11/18/23 Fidel Reis MD [address] [place] [address] PCP - [facility] 05/05/24 08/29/24 Alvin Gonzalez MA [address] [place] [address] Family Medicine 08/08/24 08/15/24 documented as of this encounter
--- OUTSIDE RECORDS SUMMARY | 2024-10-11 13:00 | XMS_ITS | Clinical Summary ---
Author Organization [employer] Address [id number] [address] [place] [address] Care Team Providers Care Manager Research Name Role Phone Fidel Reis MD Primary Care Provider [phone] Allergies Active Allergy Reactions Criticality Noted Date [...] Devices Not on file Insurance MEDICARE ANTHE[place] [id number] MEDICARE ANTHEM Care Teams Manager Research Relationship Specialty Start Date End Date Fidel Reis MD PCP - General 12/28/16
--- OUTSIDE RECORDS SUMMARY | 2024-10-11 13:00 | XMS_ITS | Encounter Summary ---
Author Organization [facility] Address [address] [place] [address] Care Team Providers Care Calker Name Role Phone Fidel Reis MD Unavailable Fidel Reis MD Primary Care Provider [phone] Fidel Reis MD Primary Care Provider [phone] Fidel Reis MD Primary Care Provider [phone] Fidel Reis MD Unavailable Alvin Gonzalez MA Unavailable [phone] Encounter Details Date Type Department Care [...] Office Visit [facility] [address] [place] [address] Fidel Reis MD [address] [place] [address] documented as of this encounter Procedures Procedure Name Priority Date/Time Associated Diagnosis Comments MR ANKLE LT WO CON 05/18/2023 4: 05 PM EST documented in this encounter Results * MR ANKLE LT WO CON (05/18/2023 4:05 PM EST) Anatomical Region Laterality Modality Other 05/18/2023 4:05 PM EST Narrative 05/18/2023 4:48 [place] [address] Magnetic Resonance Report Signed Patient: JOEL MIRANDA MR#: [id number] : 1960 Acct:[id number] Age/Sex: 62 / M ADM Date: 05/18/23 Loc: MRI Attending Dr: KASSIE MOFFETT Ordering Physician: KASSIE MOFFETT Date of Service: 05/18/23 Procedure(s): ankle LT wo con Accession Number(s): [id number] cc: KASSIE MOFFETT ; Fidel Reis M.D. [facility] [place] [id number] Patient Name: JOEL MIRANDA MRN: [id number] date: 1960 Sex: M Assigned Patient Location: MRI Current Patient Location: MRI Accession/Order Number: [id number] Exam Date: 05/18/2023 10:51 Report Date: 05/18/2023 [...] Signed By: 05/18/23 1648 DD/ 1605 TD/TT: Traffic Engineering Technician: Procedure Note Radiology, Radiologist, MD - 05/18/2023 [place] [address] Magnetic Resonance Report Signed Patient: JOEL MIRANDA R#: [id number] : 1960cct:[id number] Age/Sex: 62 / MADM Date: 05/18/23 Loc: MRI Attending Dr: KASSIE MOFFETT Ordering Physician: KASSIE MOFFETT Date of Service: 05/18/23 Procedure(s): MR ankle LT wo con Accession Number(s): [id number] cc: KASSIE MOFFETT ; Fidel Reis M.D. [facility] [place] [id number] Patient Name: JOEL MIRANDA MRN: [id number] date: 1960 Sex: M Assigned Patient Location: MRI Current Patient Location: MRI Accession/Order Number: [id number] Exam Date: 05/18/2023 10:51 Report Date: 05/18/2023 [...] Dictated By: Eric Travis M.D. Signed By:05/18/23 1648 DD/ 1605 TD/TT: Traffic Engineering Technician: Generic External Data Provider [facility] Final Result documented in this encounter Visit Diagnoses Not on filedocumented in this encounter Care Teams Calker Relationship Specialty Start Date End Date Fidel Reis MD [address] [place] [address] [facility] 02/26/23 Fidel Reis MD [address] [place] [address] PCP - General Family Medicine 05/12/23 08/29/23 Fidel Reis MD [address] [place] [address] PCP - General Family Medicine 08/30/23 08/30/23 Fidel Reis MD [address] [place] [address] PCP - General Family Medicine 11/18/23 Fidel Reis MD [address] [place] [address] PCP - [facility] 05/05/24 08/29/24 Alvin Gonzalez, REBEL [address] [place] [address] Family Medicine 08/08/24 08/15/24 documented as of this encounter
--- OUTSIDE RECORDS SUMMARY | 2024-10-11 13:00 | XMS_ITS | Encounter Summary ---
Author Organization [facility] Address [address] [place] [address] Care Team Providers Care Solid Waste Manager Name Role Phone Fidel Reis MD Unavailable Fidel Reis MD Primary Care Provider [phone] Fidel Reis MD Primary Care Provider [phone] Fidel Reis MD Primary Care Provider [phone] Fidel Reis MD Unavailable Alvin Gonzalez MA Unavailable [phone] Encounter Details Date Type Department Care Team (Late st Contact Info) Description 06/09/2023 Orders Only [facility] [address] [place] [address] Fidel Reis MD [address] [place] [address] Social History Tobacco Use Types [...] 02/01/2025 10:30 AM EST Office Visit [facility] [address] [place] [address] Fidel Reis MD [address] [place] [address] documented as of this encounter Procedures Procedure Name Priority Date/Time Associated Diagnosis Comments SCANNED LABS Routine 06/09/2023 9:26 AM EDT SCANNED LABS Routine 06/09/2023 9:04 AM EDT documented in this encounter Results * SCANNED LABS (06/09/2023 9:26 AM EDT) us Fidel Reis MD LAB CHG PERFORMABLES Final Resul t * SCANNED LABS (06/09/2023 9:04 AM EDT) Fidel Reis MD LAB CHG PERFORMABLES Final Resul t documented in this encounter Visit Diagnoses Not on filedocumented in this encounter Care Teams Solid Waste Manager Relationship Specialty Start Date End Date Fidel Reis MD [address] [place] [address] PCP - [employer] 02/26/23 Fidel Reis MD [address] [place] [address] PCP - General Family Medicine 05/12/23 08/29/23 Fidel Reis MD [address] [place] [address] PCP - General Family Medicine 08/30/23 08/30/23 Fidel Reis MD [address] [place] [address] PCP - General Family Medicine 11/18/23 Fidel Reis MD [address] [place] [address] PCP - [facility] 05/05/24 08/29/24 Alvin Gonzalez MA [address] [place] [address] Family Medicine 08/08/24 08/15/24 documented as of this encounter
--- OUTSIDE RECORDS SUMMARY | 2024-10-11 13:00 | XMS_ITS | Encounter Summary ---
Author Organization [facility] Address [address] [place] [address] Care Team Providers Care Rn Resource Nurse Name Role Phone Fidel Reis MD Unavailable Fidel Reis MD Primary Care Provider [phone] Fidel Reis MD Primary Care Provider [phone] Fidel Reis MD Primary Care Provider [phone] Fidel Reis MD Unavailable Alvin Gonzalez MA Unavailable [phone] Encounter Details Date Type Department Care Team (Late st Contact Info) Description 07/23/2023 Orders Only [facility] [address] [place] [address] Fidel Reis MD [address] [place] [address] Social History Tobacco Use Types [...] [facility] [address] [place] [address] Fidel Reis MD [address] [place] [address] documented as of this encounter Procedures Procedure Name Priority Date/Time Associated Diagnosis Comments SCANNED LABS Routine 07/23/2023 8:27 AM EDT documented in this encounter Results * SCANNED LABS (07/23/2023 8:27 AM EDT) Fidel Reis MD LAB CHG PERFORMABLES Final Resul t documented in this encounter Visit Diagnoses Not on filedocumented in this encounter Care Teams Rn Resource Nurse Relationship Specialty Start Date End Date Fidel Reis MD [address] [place] [address] [facility] Fidel Reis MD [address] [place] [address] PCP - General Family Medicine 05/12/23 08/29/23 Fidel Reis MD [address] [place] [address] PCP - General Family Medicine 08/30/23 08/30/23 Fidel Reis MD [address] [place] [address] PCP - General Family Medicine 11/18/23 Fidel Reis MD [address] [place] [address] PCP - [facility] 05/05/24 08/29/24 Alvin Gonzalez, REBEL [address] [place] [address] Family Medicine 08/08/24 08/15/24 documented as of this encounter
--- OUTSIDE RECORDS SUMMARY | 2024-10-11 13:01 | XMS_ITS | Encounter Summary ---
Author Organization [facility] Address [address] [place] [address] Care Team Providers Care Belt Fixer Name Role Phone Fidel Reis MD Unavailable Fidel Reis MD Primary Care Provider [phone] Fidel Reis MD Unavailable Alvin Gonzalez MA Unavailable Reason for Visit * Reason Comments Med Refill Encounter Details Date Type Department Care Team (Late st Contact Info) Description 06/17/2024 [facility] [address] [place] [address] Fidel Reis MD [address] [place] [address] Primary hypertension ; Dyslipidemia Social History Tobacco Use Types Packs/Day Years [...] week 10/17/2023 How often do you attend [facility] or roman catholic services? Patient declined 10/17/2023 Do you belong to any clubs o r organizations such as adventist groups, unions, fraternal or athletic groups, or [...] and heating? Not hard at all 10/17/2023 [facility] - Occupational Stress [...] any time in the past 12 m ont, were you homeless or living in a senior care (including now)? No 10/17/2023 Sex and Gender Information Value Date Recorded Sex Assigned at Not on file Legal Sex Male 7:28 PM EDT Gender Identity Not on file Sexual Orientation Not on file documented as of this encounter Miscellaneous Notes * Telephone Encounter - AMRIK MEHTA - 06/19/2024 8:25 AM EDT MEDICATION SENT TO [facility] documented in this encounter Plan of Treatment Upcoming Encounters Date Type Department Care Team (Late st Contact Info) Description 02/01/2025 10:30 AM EST Office Visit [facility] [address] [place] [address] Fidel Reis MD [address] [place] [address] documented as of this encounter Visit Diagnoses Diagnosis Primary hypertension Unspecified essential hypertension Dyslipidemia Other and unspecified hyperlipidemia documented in this encounter Care Teams Belt Fixer Relationship Specialty Start Date End Date Fidel Reis MD [address] [place] [address] PCP - [place] [facility] 02/26/23 Fidel Reis MD [address] [place] [address] PCP - General Family Medicine 11/18/23 Fidel Reis MD [address] [place] [address] PCP - [facility] 05/05/24 08/29/24 Alvin Gonzalez, REBEL [address] [place] [address] Family Medicine 08/08/24 08/15/24 documented as of this encounter
--- OUTSIDE RECORDS SUMMARY | 2024-10-11 13:01 | XMS_ITS | Clinical Summary ---
Author Organization [facility] Address [facility] [place] [id number] Care Team Providers Care Cloth Bleaching Range Tender Name Role Phone Jameel Smith Luciana Primary Care Provider Unavailabl e Allergies No [...] daily. Active tamsulosin (FLOMAX) 0.4 mg ORAL [id number]: Paraplegia (HCC),Disturbanc e of skin sensation Take [...] Vaccine (1 of 2) 07/08/2011 Covid-19 Vaccine (1 - 2023- season) 2023 Influenza Vaccine (#1) 2024 RSV Vaccine (1 - 1-dose 75+ series) 2036 Insurance MEDICARE O [facility] P[facility] Care Teams Cloth Bleaching Range Tender Relationship Specialty Start Date End Date Jameel Smith PCP - General Internal Medicine 07/01/11
--- OUTSIDE RECORDS SUMMARY | 2024-10-11 13:01 | XMS_ITS | Encounter Summary ---
Author Organization [facility] Address [address] [place] [address] Care Team Providers Care Belt Sewer Name Role Phone Fidel Reis MD Unavailable Fidel Reis MD Primary Care Provider [phone] Fidel Reis MD Unavailable Alvin Gonzalez MA Unavailable Encounter Details Date Type Department Care Team (Late st Contact Info) Description 12/02/2023 Orders Only [facility] [address] [place] [address] Fidel Reis MD [address] [place] [address] Social History Tobacco Use Types Packs/Day Years [...] week 10/17/2023 How often do you attend [facility] or amish services? Patient declined 10/17/2023 Do you belong to any clubs o r organizations such as muslim groups, unions, fraternal or athletic groups, or [...] and heating? Not hard at all 10/17/2023 [facility] - Occupational Stress Questionnaire Answer Date Recorded [...] any time in the past 12 m [facility], were you homeless or living in a [...] Office Visit [facility] [address] [place] [address] Fidel Reis MD [address] [place] [address] documented as of this encounter Visit Diagnoses Not on filedocumented in this encounter Care Teams Belt Sewer Relationship Specialty Start Date End Date Fidel Reis MD [address] [place] [address] PCP - [place] [employer] 02/26/23 Fidel Resi MD [address] [place] [address] PCP - General Family Medicine 11/18/23 Fidel Reis MD [address] [place] [address] PCP - [facility] 05/05/24 08/29/24 Alvin Gonzalez MA [address] [place] [address] Family Medicine 08/08/24 08/15/24 documented as of this encounter
--- OUTSIDE RECORDS SUMMARY | 2024-10-11 13:01 | XMS_ITS | Encounter Summary ---
Author Organization [facility] Address [address] [place] [address] Care Team Providers Care Retail Pharmacy Technician Name Role Phone Fidel Reis MD Unavailable Fidel Reis MD Primary Care Provider [phone] Fidel Reis MD Unavailable Alvin Gonzalez MA Unavailable [phone] Reason for Visit * Reason Comments Med Refill Encounter Details Date Type Department Care Team (Late st Contact Info) Description 06/24/2024 [facility]ill [facility] [address] [place] [address] Fidel Reis MD [address] [place] [address] Benign hypertension ; Type 2 diabetes mellitus with hyperglycemia, without long-term current use of insulin (HCC) Social History Tobacco Use Types Packs/Day Years [...] often do you attend chur ch or yazdanism services? Patient declined 10/17/2023 Do you belong to any clubs o r organizations such as mu-ism groups, unions, fraternal or athletic groups, or [...] and heating? Not hard at all 10/17/2023 [facility] Occupat ional Health - Occupational Stress [...] any time in the past 12 m [facility], were you homeless or living in a assisted (including now)? No 10/17/2023 Sex and Gender Information Value Date Recorded Sex Assigned at Not on file Legal Sex Male 7:28 PM EDT Gender Identity Not on file Sexual Orientation Not on file documented as of this encounter Miscellaneous Notes * Telephone Encounter - AMRIK MEHTA - 06/26/2024 9:04 AM EDT MEDICATION SENT TO [facility] documented in this encounter Plan of Treatment Upcoming Encounters Date Type Department Care Team (Late st Contact Info) Description 02/01/2025 10:30 AM EST Office Visit [facility] [address] [place] [phone] Fidel Reis MD [address] [place] [address] documented as of this encounter Visit Diagnoses Diagnosis Benign hypertension Essential hypertension, benign Type 2 diabetes mellitus with hyperglycemia, without long-term current use of insulin (HCC) documented in this encounter Care Teams Retail Pharmacy Technician Relationship Specialty Start Date End Date Fidel Reis MD [address] [place] [address] PCP - Jaron Ballard 02/26/23 Fidel Reis MD [address] [place] [address] PCP - General Family Medicine 11/18/23 Fidel Reis MD [address] [place] [address] PCP - ACO Reach 05/05/24 08/29/24 Alvin Gonzalez, [place] [address] [place] [place] [address] Family Medicine 08/08/24 08/15/24 documented as of this encounter
--- OUTSIDE RECORDS SUMMARY | 2024-10-11 13:01 | XMS_ITS | Encounter Summary ---
Author Organization [facility] Address [address] [place] [address] Care Team Providers Care Desk Assistant Name Role Phone Fidel Reis MD Unavailable Fidel Reis MD Primary Care Provider [phone] Fidel Reis MD Unavailable Alvin Gonzalez MA Unavailable [phone] Encounter Details Date Type Department Care Team (Late st Contact Info) Description 02/15/2024 Orders Only [facility] [address] [place] [address] Ganga Corona MD [address] [place], [place] [id number] Social History Tobacco Use Types Packs/Day Years [...] How often do you attend chur or anabaptist services? Patient declined 10/17/2023 Do you belong to any clubs o r organizations such as worship groups, unions, fraternal or athletic groups, or [...] and heating? Not hard at all 10/17/2023 [facility] of Occupat ional Health - Occupational Stress [...] any time in the past 12 m [facility], were you homeless or living in a fci (including now)? No 10/17/2023 Sex and Gender [...] Visit [facility] [address] [place] [address] Fidel Reis MD [address] [place] [address] documented as of this encounter Procedures Procedure Name Priority Date/Time Associated Diagnosis Comments XR TIBIA FIBULA 2 VIEWS RIGHT Routine 02/15/2024 7:37 AM EST documented in this encounter Results * XR tibia fibula 2 views right (02/15/2024 7:37 AM EST) Anatomical Region Laterality Modality Lower Extremities, Lower Leg Right Rad iographic Imaging Ganga Corona MD IMG XR PROCEDURES Final Resul t documented in this encounter Visit Diagnoses Not on filedocumented in this encounter Care Teams Desk Assistant Relationship Specialty Start Date End Date Fidel Reis MD [address] [place] [address] PCP - [place] [employer] 02/26/23 Fidel Reis MD [address] [place] [address] PCP - General Family Medicine 11/18/23 Fidel Reis MD [address] [place] [address] PCP - ACO Reach 05/05/24 08/29/24 Alvin Gonzalez, [place] [address] [place] [address] Family Medicine 08/08/24 08/15/24 documented as of this encounter
--- OUTSIDE RECORDS SUMMARY | 2024-10-11 13:01 | XMS_ITS | Encounter Summary ---
Author Organization [facility] Address [address] [place] [address] Care Team Providers Care Foxing Closer Name Role Phone Fidel Reis MD Primary Care Provider [phone] Encounter Details Date Type Department Care Team (Late st Contact Info) Description 10/02/2024 External Result Encounter [facility] External Department Unsolicited Klaus Brar MD [address] [facility] [address] [place] [address] Social History Tobacco Use Types Packs/Day Years [...] often do you attend chur ch or mandaen services? Patient declined 10/17/2023 Do you belong to any clubs o r organizations such as hinduism groups, unions, fraternal or athletic groups, or [...] and heating? Not hard at all 10/17/2023 [facility] - Occupational Stress Questionnaire Answer Date Recorded [...] any time in the past 12 m [facility], were you homeless or [...] Office Visit [facility] [address] [place] [address] Fidel Reis MD [address] [place] [address] documented as of this encounter Procedures Procedure Name Priority Date/Time Associated Diagnosis Comments GLUCOSE POCT GLUCOMETERS Routine 10/02/2024 1:03 PM EDT documented in this encounter Results * GLUCOSE POCT GLUCOMETERS (10/02/2024 1:03 PM EDT) [facility] GLUCOSE POC GLUCOMETERS 74 mg/dL 10/02/2024 1:21 PM EDT [facility] Comment: Random Glucose Reference Range is dependent on time and content of last meal. Glucose of more than 200 mg/dL in a nonstressed, ambulatory subject supports the diagnosis of Diabetes Mellitus. Blood (Blood) 10/02/2024 1:0 3 PM EDT 10/02/2024 1:20 PM EDT us Klaus Edwards MD LAB BLOOD ORDERABLES Final R esult [facility] [address] [place] [address], documented in this encounter Visit Diagnoses Not on filedocumented in this encounter Care Teams Foxing Closer Relationship Specialty Start Date End Date Fidel Reis MD [address] [place] [phone] PCP - General Family Medicine 11/18/23 documented as of this encounter
--- OUTSIDE RECORDS SUMMARY | 2024-10-11 13:01 | XMS_ITS | Encounter Summary ---
Author Organization [facility] Address [address] [place] [address] Care Team Providers Care Manager Online Name Role Phone Fidel Reis MD Unavailable Fidel Reis MD Primary Care Provider [phone] Fidel Reis MD Unavailable Alvin Gonzalez MA Unavailable [phone] Reason for Visit * Reason Comments Med Refill Encounter Details Date Type Department Care Team (Late st Contact Info) Description 07/01[facility]2024 [facility] [address] [place] [address] Fidel Reis MD [address] [place] [address] Pruritus; Primary hypertension ; Dyslipidemia ; Type 2 diabetes mellitus with hyperglycemia, [...] any clubs o r organizations such as zoroastrian groups, unions, fraternal or athletic groups, or [...] and heating? Not hard at all 10/17/2023 [facility] Occupat ional Health - Occupational [...] 07/03/2024 1:05 PM EDT MEDICATION SENT TO [facility] documented in this encounter Plan of Treatment Upcoming Encounters Date Type Department Care Team (Late st Contact Info) Description 02/01/2025 10:30 AM EST Office Visit [facility] [address] [place] [phone] Fidel Reis MD [address] [place] [address] documented as of this encounter Visit Diagnoses Diagnosis Pruritus Unspecified pruritic disorder Primary hypertension Unspecified essential hypertension Dyslipidemia Other and unspecified hyperlipidemia Type 2 diabetes mellitus with hyperglycemia, without long-term current use of insulin (HCC) documented in this encounter Care Teams Manager Online Relationship Specialty Start Date End Date Fidel Reis MD [address] [place] [address] PCP - Jaron Ballard 02/26/23 Fidel Reis MD [address] [place] [address] PCP - General Family Medicine 11/18/23 Fidel Reis MD [address] [place] [address] PCP - ACO Reach 05/05/24 08/29/24 Alvin Gonzalez, REBEL [address] [place] [address] Family Medicine 08/08/24 08/15/24 documented as of this encounter
--- OUTSIDE RECORDS SUMMARY | 2024-10-11 13:01 | XMS_ITS | Encounter Summary ---
Author Organization [facility] Address [address] [place] [address] Care Team Providers Care Associate Scientist Name Role Phone Fidel Reis MD Primary Care Provider [phone] Encounter Details Date Type Department Care Team (Late st Contact Info) Description 10/02/2024 External Result Encounter [facility] External Department Unsolicited Klaus Brar MD [address] [facility] [address] [place] [address] Social History Tobacco Use Types Packs/Day Years [...] often do you attend chur ch or samaritan services? Patient declined 10/17/2023 Do you belong to any clubs o r organizations such as latter-day groups, unions, fraternal or athletic groups, or [...] heating? Not hard at all 10/17/2023 [facility] - Occupational Stress Questionnaire Answer Date [...] Office Visit [facility] [address] [place] [address] Fidel Reis MD [address] [place] [address] documented as of this encounter Procedures Procedure Name Priority Date/Time Associated Diagnosis Comments GLUCOSE POCT GLUCOMETERS Routine 10/02/2024 10:54 AM EDT documented in this encounter Results * GLUCOSE POCT GLUCOMETERS (10/02/2024 10:54 AM EDT) [facility] GLUCOSE POC GLUCOMETERS 77 mg/dL 10/02/2024 11:02 AM EDT [facility] Comment: Random Glucose Reference Range is dependent on time and content of last meal. Glucose of more than 200 mg/dL in a nonstressed, ambulatory subject supports the diagnosis of Diabetes Mellitus. COMMEMT1 Glu2: Cleaned Meter 10/02/2024 11:02 AM EDT [facility] Blood (Blood) 10/02/2024 10: 54 AM EDT 10/02/2024 11:01 AM EDT us Klaus Edwards MD LAB BLOOD ORDERABLES Final R esult [facility] [address] [place] [address], documented in this encounter Visit Diagnoses Not on filedocumented in this encounter Care Teams Associate Scientist Relationship Specialty Start Date End Date Fidel Reis MD [address] [place] [address] PCP - General Family Medicine 11/18/23 documented as of this encounter
--- OUTSIDE RECORDS SUMMARY | 2024-10-11 13:01 | XMS_ITS | Encounter Summary ---
Author Organization [facility] Address [address] [place] [address] Care Team Providers Care Rnfa Name Role Phone Fidel Reis MD Primary Care Provider [phone] Encounter Details Date Type Department Care Team (Late st Contact Info) Description 10/02/2024 External Result Encounter [facility] External Department Unsolicited Klaus Brar MD [address] [facility] [address] [place] [address] Social History Tobacco Use Types Packs/Day Years [...] often do you attend chur ch or jainism services? Patient declined 10/17/2023 Do you belong to any clubs o r organizations such as baptism groups, unions, fraternal or athletic groups, or [...] and heating? Not hard at all 10/17/2023 [facility] - Occupational Stress Questionnaire Answer Date Recorded [...] time in the past 12 m [facility], were you homeless or living in a [...] Visit [facility] [address] [place] [address] Fidel Reis MD [address] [place] [address] documented as of this encounter Procedures Procedure Name Priority Date/Time Associated Diagnosis Comments AEROBIC RENAN CHARGE (NMIC56) Routine 10/02/2024 12:38 PM EDT ANAEROBIC CULTURE Routine 10/02/2024 12: 38 PM EDT AEROBIC CULTURE Routine 10/02/2024 12:38 PM EDT GRAM STAIN Routine 10/02/2024 12:38 PM EDT documented in this encounter Results * (ABNORMAL) AEROBIC RENAN CHARGE (NMIC56) (10/02/2024 12:38 PM EDT) AMIKACIN <16(S) 10/07/2024 9:27 AM EDT [facility] AZTREONAM <4(I) 10/07/2024 9:27 AM EDT [facility] CEFEPIME <2(S) 10/07/2024 9:27 AM EDT [facility] CEFTAZIDIME 4(I) 10/07/2024 9:27 AM EDT [facility] CEFTAZIDIME/AVIBA CTAM <4(S) 10/07/2024 9:27 AM EDT [facility] CEFTOLOZANE/TAZOB ACTAM <2(S) 10/07/2024 9:27 AM EDT [facility] CIPROFLOXACIN <0.25(S) 10/07/2024 9:27 AM EDT [facility] GENTAMICIN <2(S) 10/07/2024 9:27 AM EDT [facility] LEVOFLOXACIN <0.5(S) 10/07/2024 9:27 AM EDT [facility] MEROPENEM <1(S) 10/07/2024 9:27 AM EDT [facility] PIPERACILLIN/TAZO BACTAM <8(I) 10/07/2024 9:27 AM EDT [facility] TOBRAMYCIN <2(S) 10/07/2024 9:27 AM EDT [facility] Other Left hip region structure / Unknown 10/02/2024 12:38 PM EDT 10/02/2024 1:17 PM EDT Comment:Tissue Klaus Edwards MD COUNT INCLUDES THE [facility] Final Result Performing Organization Address City/[facility] de Phone Number COUNT INCLUDES THE [facility] [address] [place] [address], [facility] [address] [place] [address] * Gram stain (10/02/2024 12:38 PM EDT) GRAM STAIN No White Blood Cells Seen 10/03/2024 2:05 PM EDT [facility] GRAM STAIN No Bacteria Seen 10/03/2024 2:05 PM EDT [facility] Other Left hip region structure / Unknown 10/02/2024 12:38 PM EDT 10/02/2024 1:17 PM EDT Comment:Tissue Narrative COUNT INCLUDES THE [facility] - 10/07/2024 9:31 AM EDT Comment Left Hip Tissue Culture Klaus Edwards MD LAB MICROBIOLOGY - GENERAL O RDERABLES Final Result Performing Organization Address City/[facility]/ZIP Co de Phone Number COUNT INCLUDES THE [facility] [address] [place] [address], [facility] [address] [place] [address] * ANAEROBIC CULTURE (10/02/2024 12:38 PM EDT) Path[facility] ORGANISM Prevotella disiens 10/07/2024 9:31 AM EDT [facility] QUANTITY OF GROWTH Heavy Growth 10/07/2024 9:31 AM EDT [facility] Comment: Please contact Microbiology within 7 days if anaerobic susceptibilities are needed. Other Left hip region structure / Unknown 10/02/2024 12:38 PM EDT 10/02/2024 1:17 PM EDT Comment:Tissue Narrative COUNT INCLUDES THE [facility] - 10/07/2024 9:31 AM EDT Comment Left Hip Tissue Culture us Klaus Edwards MD LAB BLOOD ORDERABLES Final R esult Performing Organization Address City/State/[facility] Co de Phone Number COUNT INCLUDES THE [facility] [address] [place] [address], [facility] [address] [place] [address] * AEROBIC CULTURE (10/02/2024 12:38 PM EDT) Pathologist [facility] ORGANISM Strep dysgalactiae 10/07/2024 9:27 AM EDT [facility] COMMENTS Organism Not Routinely Tested for Susceptibilities 10/07/2024 9:27 AM EDT [facility] QUANTITY OF GROWTH Moderate Growth 10/07/2024 9:27 AM EDT [facility] ORGANISM Corynebacterium striatum group 10/07/2024 9:27 AM EDT [facility] COMMENTS Organism Not Routinely Tested for Susceptibilities 10/07/2024 9:27 AM EDT [facility] QUANTITY OF GROWTH Light Growth 10/07/2024 9:27 AM EDT [facility] ORGANISM Pseudomonas aeruginosa 10/07/2024 9:27 AM EDT [facility] QUANTITY OF GROWTH Rare Growth 10/07/2024 9:27 AM EDT [facility] Other Left hip region structure / Unknown 10/02/2024 12:38 PM EDT 10/02/2024 1:17 PM EDT Comment:Tissue Narrative COUNT INCLUDES THE [facility] - 10/07/2024 9:31 AM EDT Comment Left Hip Tissue Culture us Klaus Edwards MD LAB BLOOD ORDERABLES Final R esult COUNT INCLUDES THE [facility] [address] [place] [address], [facility] [address] [place] [address] documented in this encounter Visit Diagnoses Not on filedocumented in this encounter Care Teams Rnfa Relationship Specialty Start Date End Date Fidel Reis MD [address] [facility] [place] [address] PCP - General Family Medicine 11/18/23 documented as of this encounter
--- OUTSIDE RECORDS SUMMARY | 2024-10-11 13:01 | XMS_ITS | Encounter Summary ---
Author Organization [facility] tem Address [id number] [address] [place] [address] Care Team Providers Care Area Sales Manager Name Role Phone Fidel Reis MD Primary Care Provider [phone] Encounter Details Date Type Department Care Team (Late st Contact Info) Description 10/11/2023 Telephone [facility] [address] [place] [address] Milly Kaur, RENETTA Social History [...] on filedocumented in this encounter Care Teams Area Sales Manager Relationship Specialty Start Date End Date Fidel Reis MD PCP - General 12/28/16 documented as of this encounter
--- OUTSIDE RECORDS SUMMARY | 2024-10-11 13:01 | XMS_ITS | Encounter Summary ---
Author Organization [facility] Address [address] [place] [address] Care Team Providers Care User Acceptance Tester Name Role Phone Fidel Reis MD Primary Care Provider [phone] Encounter Details Date Type Department Care Team (Late st Contact Info) Description 10/05/[address] [facility] [address] [address] Klaus Brar MD [address] [facility] [address] [place] [address] Social History Tobacco Use Types Packs/Day [...] often do you attend chur ch or synagogue services? Patient declined 10/17/2023 Do you belong to any clubs o r organizations such as bahai groups, unions, fraternal or athletic groups, or [...] and heating? Not hard at all 10/17/2023 [facility] of Occupat ional Health - Occupational [...] any time in the past 12 m [facility], were you homeless or living in a longterm (including now)? No 10/17/2023 Sex and Gender [...] Office Visit [facility] [address] [place] [address] Fidel Reis MD [address] [place] [address] documented as of this encounter Procedures Procedure Name Priority Date/Time Associated Diagnosis Comments GENERAL PATHOLOGY Routine 10/02/2024 2:14 PM EDT documented in this encounter Results * GENERAL PATHOLOGY (10/02/2024 2:14 PM EDT) us Klaus Edwards MD [facility] Final Result documented in this encounter Visit Diagnoses Not on filedocumented in this encounter Care Teams User Acceptance Tester Relationship Specialty Start Date End Date Fidel Reis MD [address] [place] [address] PCP - General Family Medicine 11/18/23 documented as of this encounter
--- OUTSIDE RECORDS SUMMARY | 2024-10-11 13:01 | XMS_ITS | Encounter Summary ---
Author Organization [facility] Address [address] [place] [address] Care Team Providers Care Confectionery Cooker Name Role Phone Jameel Smith Primary Care Provider Unavailabl e Source Comments In the event this information is protected by the Federal Confidentiality of Alcohol and Drug AbusePatient Records regulations: The Federal rules restrict any use of the information to criminally investigate or prosecute any alcohol or drug abuse patient.[facility] Encounter Details Date Type Department Care Team (Late st Contact Info) Description 06/09/2023 [facility] [address] [place] [address] Jonathan Bah DPM Social History Tobacco Use [...] SUSCEPTIBILITY - ANAEROBE 06/14/2023 2:41 PM EDT [facility] Final Report SEE NOTE 06/14/2023 2:41 PM EDT [facility] Comment: Prevotella disiens Organism identified by client [...] methodology. Interpret results with caution. Performed By: [facility] [address] [place] [address] Supervisor Drapery Hanging: Tre Westfall MD, PhD CLIA Number: [id number] Micro Specimen BONE BIOPSY SPECIMEN / Unknown 06/04/2023 10:32 AM EST 06/09/2023 4:25 AM EDT [facility] Final Resul t Performing Organization Address [facility] de Phone Number [facility] [address] [place] [id number] * (ABNORMAL) ORGANISM RENAN (06/04/2023 10:32 AM EST) [facility] Culture, Organism RENAN Result Prevotella disiens(A) MINIMUM INHIBITORY CONCENTRATION ([place]) 06/18/2023 4:00 PM EDT [facility] Comment: Identification performed by client. Susceptibility testing has been completed by [facility]. Refer to [facility] for final report. Beta Lactamase Positive 06/18/2023 4:00 PM EDT [facility] Micro Specimen BONE BIOPSY SPECIMEN / Unknown 06/04/2023 10:32 AM EST 06/09/2023 4:25 AM EDT [facility] Final Resul t Performing Organization Address [facility] Co de Phone Number [facility] [address] [facility] [address] [place] [address], documented in this encounter Visit Diagnoses Not on filedocumented in this encounter Care Teams Confectionery Cooker Relationship Specialty Start Date End Date Jameel Smith PCP - General Internal Medicine 07/01/11 documented as of this encounter
--- OUTSIDE RECORDS SUMMARY | 2024-10-11 13:01 | XMS_ITS | Encounter Summary ---
Author Organization [facility] Address [address] [place] [address] Care Team Providers Care Director Of Vital Statistics Name Role Phone Fidel Reis MD Primary Care Provider [phone] Fidel Reis MD Unavailable Fidel Reis MD Primary Care Provider [phone] Fidel Reis MD Primary Care Provider [phone] Fidel Reis MD Primary Care Provider [phone] Fidel Reis MD Unavailable Alvin Gonzalez MA Unavailable [phone] Encounter Details Date Type Department Care Team (Late st Contact Info) Description 02/09/2023 External Result Encounter [facility] External Department Unsolicited Jonathan Bah DPM [address] [facility] [address] [place] [address] Social History Tobacco Use Types [...] 02/01/2025 10:30 AM EST Office Visit [facility] [address] [place] [phone] Fidel Reis MD [address] [place] [phone] documented as of this encounter Procedures Procedure Name Priority Date/Time Associated Diagnosis Comments [facility] US PVR/SEGMENTAL PRESSURES LOWER 02/09/2023 12:17 PM EST documented in this encounter Results * [facility] US PVR/SEGMENTAL PRESSURES LOWER (02/09/2023 12:17 PM EST) Anatomical Region Laterality Modality Right Ultrasound 02/09/2023 12:1 7 PM EST Impressions 02/09/2023 12:38 PM EST 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 THE PATIENT IS MOST LIKELY TO HAVE diffuse DISEASE OF THE LEFT LOWER EXTREMITY. Impression dictated by: Camden Navarro MD02/09/2023 12:18 PM Dictation Location: [place] [address] Tech: Conipreeti Saenz Transcribed By: [facility] 02/09/23 1218 Dictated By: Camden Navarro MD 02/09/23 1217 Signed By: <Electronically signed by Camden Navarro MD in OV> 02/09/23 1218 Narrative 02/09/2023 12:38 PM EST [facility] [place] [address] Ultrasound Report Signed Patient: Ganga Miranda MR#: [id number] : 1960 Acct:[id number] Age/Sex: 62 / M ADM Date: 02/06/23 Loc: Room: [address] [place] [address] Type: ADM IN Attending Dr: Suzy Douglas [...] Procedure Note Camden Navarro MD - 02/09/2023 [facility] [place] [address] [place] [address] Ultrasound Report Signed Patient: Ganga Miranda LMR#: [id number] : 2Acct:[id number] Age/Sex: 62 / MADM Date: 02/06/23 Loc: Room: [id number]: ADM IN Attending Dr: Suzy Douglas MD [...] Camden Navarro MD02/09/2023 12:18 PM Dictation Location: [facility] Tech: Coni Saenz Transcribed By: MARYANN 02/09/23 1218 Dictated By: Camden Navarro MD 02/09/237 Signed By: <Electronically signed by Camden Navarro MD inOV> 02/09/23 1218 us Jonathan Bah DPM IMG US PROCEDURES Final Res ult documented in this encounter Visit Diagnoses Not on filedocumented in this encounter Care Teams Director Of Vital Statistics Relationship Specialty Start Date End Date Fidel Reis MD PCP - General Family Medicine 12/10/22 05/11/23 Fidel Reis MD [address] [place] [phone] PCP - [facility] 02/26/23 Fidel Reis MD [address] [place] [address] PCP - General Family Medicine 05/12/23 08/29/23 Fidel Reis MD [address] [place] [phone] PCP - General Family Medicine 08/30/23 08/30/23 Fidel Reis MD [address] [place] [phone] PCP - General Family Medicine 11/18/23 Fidel Reis MD [address] [place] [phone] PCP - [facility] 05/05/24 08/29/24 Alvin Gonzalez, REBEL [address] [place] [address] Family Medicine 08/08/24 08/15/24 documented as of this encounter
--- OUTSIDE RECORDS SUMMARY | 2024-10-11 13:01 | XMS_ITS | Encounter Summary ---
Author Organization [facility] Address [address] [place] [address] Care Team Providers Care Rn Forensic Name Role Phone Fidel Reis MD Unavailable Fidel eRis MD Primary Care Provider [phone] Fidel Reis MD Unavailable Alvin Gonzalez MA Unavailable [phone] Encounter Details Date Type Department Care [...] any clubs o r organizations such as religious groups, unions, fraternal or athletic groups, or [...] and heating? Not hard at all 10/17/2023 [facility] [place] [facility] Occupat ional [facility] - Occupational Stress [...] any time in the past 12 m [facility], were you homeless or living in [...] Visit [facility] [address] [place] [address] Fidel Reis MD [address] [place] [phone] documented as of this encounter Procedures Procedure Name Priority Date/Time Associated Diagnosis Comments SEGMENTAL BLOOD PRESSURE 03/06/2024 2:13 PM EST documented in this encounter Results * SEGMENTAL BLOOD PRESSURE (03/06/2024 2:13 PM EST) Anatomical Region Laterality Modality Radiographic Ashley ging 03/06/2024 2:13 PM EST Narrative 03/06/2024 2:16 [place] [address] Vein Report Signed Patient: JOEL MIRANDA MR#: [id number] : 1960 Acct:[id number] Age/Sex: 63 / M ADM Date: 03/06/24 Loc: [facility] Attending Dr: Jesus Bahena D.P.M. Ordering Physician: Jesus Bahena D.P.M. Date of Service: 03/06/24 Procedure(s): VC SEGMENTAL PRESSURES Accession Number(s): [id number] cc: Jesus Bahena D.P.M.; Fidel Reis M.D. The [address] [address] Patient Name: JOEL MIRANDA MRN: [id number] date: 1960 Sex: M Assigned Patient Location: VC Current Patient Location: VC Accession/Order Number: [id number] Exam Date: 03/06/2024 11:00 Report Date: 03/06/2024 [...] Smith M.D. Signed By: 03/06/24 1416 DD/ 12 TD/TT: Water Quality Tester: Procedure Note Radiology, Radiologist, MD - 03/06/2024 [place] [address] Vein Report Signed Patient: JOEL MIRANDA LMR#: [id number] : 1960cct:[id number] Age/Sex: 63 / MADM Date: 03/06/24 Loc: [facility] Attending Dr: Jesus Bahena D.P.M. Ordering Physician: Jesus Bahena D.P.M. Date of Service: 03/06/24 Procedure(s): VC SEGMENTAL PRESSURES Accession Number(s): [id number] cc: Jesus Bahena D.P.M.; Fidel Reis M.D. The [address] [address] Patient Name: JOEL MIRANDA MRN: [id number] date: 1960 Sex: M Assigned Patient Location: Current Patient Location: VC Accession/Order Number: [id number] Exam Date: 03/06/2024 11:00 Report Date: 03/06/2024 [...] M.D. Signed By:03/06/24 1416 DD/ 1413 TD/TT: Water Quality Tester: us Generic External Data Provider IMG XR PROCEDURES Final Result documented in this encounter Visit Diagnoses Not on filedocumented in this encounter Care Teams Rn Forensic Relationship Specialty Start Date End Date Fidel Reis MD [address] [place] [address] PCP - [facility] 02/26/23 Fidel Reis MD [address] [place] [address] PCP - General Family Medicine 11/18/23 Fidel Reis MD [address] [place] [address] PCP - [facility] 05/05/24 08/29/24 Alvin Gonzalez MA [address] [place] [address] Family Medicine 08/08/24 08/15/24 documented as of this encounter
--- OUTSIDE RECORDS SUMMARY | 2024-10-11 13:01 | XMS_ITS | Patient Health Record ---
Author Organization [facility] in [place] Address [address] [place] [address] Care Team Providers Care Ferris Wheel Operator Name Role Phone Fidel Reis MD Primary Care Provider Unavailab Freddy Prieto Unavailable [phone] Nina River Unavailable [phone] Jesus Bahena Unavailable [phone] Raghavendra Martins Unavailable [phone] Allergies Allergen (clinical drug ingredient) Drug/Non Drug Allergy documented on EMR Reaction Allergy Type Onset Date Status vancomycin Vancomycin Renal failure Drug Allergy A ctive Results Component Value Reference Range Notes CBC AUTO DIFF (Not yet revie wed by provider) Interpretation: Performing Lab: Notes/Report: [facility] , White Blood Count 11.0 4.0-11.0 [...] Performing Lab: see note ML - [facility] LB CRP (Not yet reviewed by pro vider) Interpretation: Performing Lab: Notes/Report: [facility] , C Reactive Protein 5.68 <=0.50 mg/dL Performing Lab: see note ML - [facility] LB PROF 14(COMP METB) (Not yet reviewed by provider) Interpretation: Performing Lab: Notes/Report: [facility] , Sodium 137 136-145 mmol/L Potassium [...] Performing Lab: see note ML - [facility] LB CBC AUTO DIFF (Not yet revie wed by provider) Interpretation: Performing Lab: Notes/Report: [facility] , White Blood Count 10.3 4.0-11.0 [...] Performing Lab: see note ML - [facility] LB IRON AND TIBC (Not yet revie wed by provider) Interpretation: Performing Lab: Notes/Report: [facility] , Iron 30.0 65.0-175.0 ug/dL Total Iron Binding Capacity 191.0 250.0-450.0 ug/dL Percent Iron Saturation 15.7 Performing Lab: see note ML - [facility] LB Erythrocyte Sedimentation Ra te (Not yet reviewed by provider) Interpretation: Performing Lab: Notes/Report: [facility] , Erythrocyte Sedimentation Rate 67 <=20 mm/hr Performing Lab: see note ML - [facility] LB CBC AUTO DIFF (Not yet revie wed by provider) Interpretation: Performing Lab: Notes/Report: [facility] , White Blood Count 13.2 4.0-11.0 [...] Performing Lab: see note ML - [facility] LB IRON AND TIBC (Not yet revie wed by provider) Interpretation: Performing Lab: Notes/Report: [facility] , Iron 17.0 65.0-175.0 ug/dL Total Iron Binding Capacity 134.0 250.0-450.0 ug/dL Percent Iron Saturation 12.7 Performing Lab: see note ML - [facility] LB Packed Red Blood Cells (Not yet reviewed by provider) Interpretation: Performing Lab: Notes/Report: Packed Red Blood Cells [id number] AN RC TRANSFUSED 06/08/24 1035 [id number] AN RC TRANSFUSED 06/08/24 1220 Type and Screen (Not yet rev iewed by provider) Interpretation: Performing Lab: Notes/Report: [facility] , Blood Type A Negative Antibody Screen NEGATIVE FERRITIN (Not yet reviewed b y provider) Interpretation: Performing Lab: Notes/Report: [facility] , Ferritin 622.0 26.0-388.0 ng/mL Performing Lab: see note ML - [facility] LB CBC AUTO DIFF (Not yet revie wed by provider) Interpretation: Performing Lab: Notes/Report: [facility] , White Blood Count 12.7 4.0-11.0 10 3/uL Red Blood Count 2.81 4.70-6.10 10 6/uL Hemoglobin 7.4 14.0-18.0 g/dL Hematocrit 23.8 42.0-54.0 % RESULTS CALLED TO ANGELICA RUBALCAVA RN at 1219 Mean Corpuscular Volume 84.7 80.0-94.0 fL Mean Corpuscular Hemoglobin 26.3 25.9-34.0 pg Mean Corpuscular HGB Conc 31.1 29.9-35.2 g/dL Red Cell Distribution Width 14.5 11.0-15.0 % Platelet Count 295 150-450 10 3/uL Mean Platelet Volume 8.7 9.5-13.5 fL Neutrophils Percent Auto 69.9 43.0-75.0 % Lymphocytes Percent Auto 12.9 20.5-60.0 % Monocytes Percent Auto 7.2 1.7-12.0 % Eosinophils Percent Auto 9.0 0.9-7.0 % Basophils Percent Auto 0.4 0.2-2.0 % Immature Granulocytes Pct Auto 0.6 0.0-0.5 % Neutrophils Absolute Auto 8.9 1.4-6.5 10 3/uL Lymphocytes Absolute Auto 1.6 1.2-3.8 10 3/uL Monocytes Absolute Auto 0.9 0.3-0.8 10 3/uL Eosinophils Absolute Auto 1.2 0.0-0.7 10 3/uL Basophils Absolute Auto 0.1 0.0-0.1 10 3/uL Immature Granulocytes Abs Auto 0.08 0.00-0.03 10 3/uL Performing Lab: see note ML - [facility] LB FERRITIN (Not yet reviewed b y provider) Interpretation: Performing Lab: Notes/Report: [facility] , Ferritin 485.0 26.0-388.0 ng/mL Performing Lab: see note ML - [facility] LB IRON AND TIBC (Not yet revie wed by provider) Interpretation: Performing Lab: Notes/Report: [facility] , Iron 28.0 65.0-175.0 ug/dL Total Iron Binding Capacity 165.0 250.0-450.0 ug/dL Percent Iron Saturation 17.0 Performing Lab: see note ML - [facility] LB CBC AUTO DIFF (Not yet revie wed by provider) Interpretation: Performing Lab: Notes/Report: [facility] , White Blood Count 13.5 4.0-11.0 10 3/uL Red Blood Count 2.78 4.70-6.10 10 6/uL Hemoglobin 7.4 14.0-18.0 g/dL Hematocrit 23.2 42.0-54.0 % RESULTS CALLED TO CHEYENNE HUDSON RN Mean Corpuscular Volume 83.5 80.0-94.0 fL Mean Corpuscular Hemoglobin 26.6 25.9-34.0 pg Mean Corpuscular HGB Conc 31.9 29.9-35.2 g/dL Red Cell Distribution Width 14.3 11.0-15.0 % Platelet Count 306 150-450 10 3/uL Mean Platelet Volume 8.8 9.5-13.5 fL Neutrophils Percent Auto 68.6 43.0-75.0 % Lymphocytes Percent Auto 13.3 20.5-60.0 % Monocytes Percent Auto 7.8 1.7-12.0 % Eosinophils Percent Auto 9.5 0.9-7.0 % Basophils Percent Auto 0.3 0.2-2.0 % Immature Granulocytes Pct Auto 0.5 0.0-0.5 % Neutrophils Absolute Auto 9.3 1.4-6.5 10 3/uL Lymphocytes Absolute Auto 1.8 1.2-3.8 10 3/uL Monocytes Absolute Auto 1.1 0.3-0.8 10 3/uL Eosinophils Absolute Auto 1.3 0.0-0.7 10 3/uL Basophils Absolute Auto 0.0 0.0-0.1 10 3/uL Immature Granulocytes Abs Auto 0.07 0.00-0.03 10 3/uL Performing Lab: see note ML - [facility] LB PROF 14(COMP METB) (Not yet reviewed by provider) Interpretation: Performing Lab: Notes/Report: [facility] , Sodium 139 136-145 mmol/L Potassium 4.0 3.5-5.1 mmol/L Chloride 106 98-107 mmol/L Carbon Dioxide 24.0 21.0-32.0 mmol/L Anion Gap 13.0 Glucose 204 74-106 mg/dL Blood Urea Nitrogen 34.0 7.0-18.0 mg/dL Creatinine 1.78 0.70-1.30 mg/dL Estimated GFR ( Randi 47 >=60 mL/min/1.73m 2 Estimated GFR (Non- Selene 39 >=60 mL/min/1.73m 2 BUN Creatinine Ratio 19.1 Calcium 8.7 8.5-10.1 mg/dL Bilirubin Total 0.2 0.2-1.0 mg/dL Aspartate Amino Transferase 11 15-37 U/L Alanine Aminotransferase 11 16-63 U/L Alkaline Phosphatase 128 46-116 U/L Total Protein 7.8 6.4-8.2 g/dL Albumin Level 1.7 3.4-5.0 g/dL Globulin 6.1 Albumin Globulin Ratio 0.3 Performing Lab: see note ML - [facility] PROF CHEM 8 (BAS METB) (Not yet reviewed by provider) Interpretation: Performing Lab: Notes/Report: [facility] , Sodium 140 136-145 mmol/L Potassium 4.1 3.5-5.1 mmol/L Chloride 106 98-107 mmol/L Carbon Dioxide 26.5 21.0-32.0 mmol/L Anion Gap 11.6 Glucose 200 74-106 mg/dL Blood Urea Nitrogen 26.0 7.0-18.0 mg/dL Creatinine 2.05 0.70-1.30 mg/dL Estimated GFR ( Randi 40 >=60 mL/min/1.73m 2 Estimated GFR (Non- Selene 33 >=60 mL/min/1.73m 2 BUN Creatinine Ratio 12.7 Calcium 8.9 8.5-10.1 mg/dL Performing Lab: see note ML - [facility] LB PROF CHEM 8 (BAS METB) (Not yet reviewed by provider) Interpretation: Performing Lab: Notes/Report: [facility] , Sodium 136 136-145 mmol/L Potassium [...] Performing Lab: see note ML - [facility] LB IRON AND TIBC (Not yet revie wed by provider) Interpretation: Performing Lab: Notes/Report: [facility] , Iron 18.0 65.0-175.0 ug/dL Total Iron Binding Capacity 140.0 250.0-450.0 ug/dL Percent Iron Saturation 12.9 Performing Lab: see note ML - [facility] LB CBC AUTO DIFF (Not yet revie wed by provider) Interpretation: Performing Lab: Notes/Report: [facility] , White Blood Count 13.8 4.0-11.0 [...] Performing Lab: see note ML - [facility] LB CBC AUTO DIFF (Not yet revie wed by provider) Interpretation: Performing Lab: Notes/Report: [facility] , White Blood Count 12.2 4.0-11.0 [...] Performing Lab: see note ML - [facility] LB Erythrocyte Sedimentation Ra te (Not yet reviewed by provider) Interpretation: Performing Lab: Notes/Report: [facility] , Erythrocyte Sedimentation Rate 92 <=20 mm/hr Performing Lab: see note ML - [facility] LB PROF CHEM 8 (BAS METB) (Not yet reviewed by provider) Interpretation: Performing Lab: Notes/Report: [facility] , Sodium 139 136-145 mmol/L Potassium [...] Performing Lab: see note ML - [facility] LB FERRITIN (Not yet reviewed b y provider) Interpretation: Performing Lab: Notes/Report: [facility] , Ferritin 485.0 26.0-388.0 ng/mL Performing Lab: see note ML - [facility] LB CRP (Not yet reviewed by pro vider) Interpretation: Performing Lab: Notes/Report: [facility] , C Reactive Protein 8.37 <=0.50 mg/dL Performing Lab: see note ML - [facility] LB CBC AUTO DIFF (Not yet revie wed by provider) Interpretation: Performing Lab: Notes/Report: [facility] , White Blood Count 13.1 4.0-11.0 [...] Performing Lab: see note ML - [facility] LB ECG 12 lead (Not yet reviewe d by provider) Interpretation: Performing Lab: Notes/Report: Source Facility: [facility] [place] [address] [place] [address] Electrocardiograph Report Signed Patient: JOEL STINSON MR#: [id number] : 1960 Acct:[id number] Age/Sex: 63 / M ADM Date: 03/10/24 Loc: PST Attending Dr: Jesus Bahena D.P.M. Ordering Physician: Jesus Bahena D.P.M. Date of Service: 03/10/24 Procedure(s): ECG 12 lead Accession Number(s): [id number] cc: [facility] Test Date: 2024-03-10 Pat Name: JOEL STINSON Department: Room: - Gender: Male Neurosurgical Nurse: : 1960 Requested By: JESUS Plascencia Number: [id number] Reading MD: AVELINO ORTEGA Measurements Intervals [place] Rate: 53 P: 86 NC: 179 QRS: 8 QRSD: 110 T: 34 QT: 451 QTc: 425 Interpretive Statements SINUS BRADYCARDIA Compared to ECG 11/25/2022 10:12:24 Sinus rhythm no longer present Electronically Signed On 03-10-2024 17:24:37 EST by AVELINO ORTEGA Dictated By: Avelino Ortega D.O. Signed By: 03/10/241723 DD/ 1037 TD/TT: Paint Specialist: [place] [address] Electrocardiograph Report Signed Patient: TOBIAS STINSON MR#: [id number] : 1960 Acct:[id number] Age/Sex: 63 / M ADM Date: 03/10/24 Loc: PST Attending Dr: Jesus Bahena D.P.M. Ordering Physician: Jesus Bahena D.P.M. Date of Service: 03/10/24 Procedure(s): ECG 12 lead Accession Number(s): [id number] cc: [facility] Test Date: 2024-03-10 Pat Name: JOEL SILVA Department: 60 Room: - Gender: Male Neurosurgical Nurse: : 1960 Requ ested By: JESUS BAHENA Order Number: [id number] Reading MD: AVELINO ORTEGA Measurements Intervals [place] Rate: 53 P: 86 NC: 179 QRS: 8 QRSD: 110 T: 34 QT: 451 QTc: 425 Interpretive Statements SINUS BRADYCARDIA Compared to ECG 10/29 10:12:24 Sinus rhythm no long er present Electronically Suzy d On 03-10-2024 17:24:37 EST by AVELINO ORTEGA Dictated By: Nicolás Ortega D.O. Signed By: 03/10/241723 DD/ 1037 TD/TT: Paint Specialist: PROF ROXANA Samuel ([facility]) (Not yet reviewed by provider) Interpretation: Performing Lab: Notes/Report: [facility] , Sodium 141 136-145 mmol/L Potassium [...] Performing Lab: see note ML - [facility] LB VC SEGMENTAL PRESSURES (Not yet reviewed by provider) Interpretation: Performing Lab: Notes/Report: Source Facility: [place] [address] [place] [address] Vein Report Signed Patient: JOEL STINSON MR#: [id number] : 1960 Acct:[id number] Age/Sex: 63 / M ADM Date: 03/06/24 Loc: VC Attending Dr: Jesus Bahena D.P.M. Ordering Physician: Jesus Bahena D.P.M. Date of Service: 03/06/24 Procedure(s): VC SEGMENTAL PRESSURES Accession Number(s): [id number] cc: Jesus Bahena D.P.M.; Fidel Reis M.D. [place] [address] Patient Name: JOEL STINSON MRN: [id number] date: 1960 Sex: M Assigned Patient Location: Current Patient Location: VC Accession/Order Number: [id number] Exam Date: 03/06/2024 11:00 Report Date: 03/06/2024 [...] M.D. Signed By: 03/06/241415 DD/ 12 TD/TT: Paint Specialist: [place] [address] Vein Report Signed Patient: TOBIAS STINSON MR#: [id number] : 1960 Acct:[id number] Age/Sex: 63 / M ADM Date: 03/06/24 Loc: VC Attending Dr: Jesus Bahena D.P.M. Ordering Physician: Jesus Bahena D.P.M. Date of Service: 03/06/24 Procedure(s): VC SEG MENTAL PRESSURES Accession Number(s): [id number] cc: Jesus Bahena D.P.M.; Fidel Reis M.D. [place] [address] Patient Name: JOEL STINSON MRN: [id number] date: 1960 Sex: M Assigned Patient Loc ation: VC Current Patient Loca tion: VC Accession/Order Numb er: [id number] Exam Date: 11:00 Report Date: 03/06/2024 14:13 At the request of: JESUS BAHENA Procedure: VC SEGMEN SUKUMAR PRESSURES EXAM: VC SEGMENTAL PRESSURES HISTORY: R09.89 stewart pheral vascular disease COMPARISON: None TECHNIQUE: Resting A BIs and segmental limb pressures were obtained. FINDINGS: ABIs are nondiagnostic due to vascular rigidity. Bilateral toe-brachial indices are normal. Based upon waveform analysis the likelihood of significant vascular disease is low. V EIN/VC SEGMENTAL PRESSURES IMPRESSION: Nondiagnostic ABIs d ue to vascular rigidity. However, normal toe-brachial indices and biphasic waveforms. The likelihood of significant vascular disease is low. Electronically authenticated by: Rafaela WRIGHT Date: 03/06/2024 14:13 Dictated By: Rafaela Wright M.D. Signed By: 03/06/241415 DD/ 12 TD/TT: Paint Specialist: Vitamin B12 (Not yet reviewe d by provider) Interpretation: Performing Lab: Notes/Report: [facility] , Vitamin B12 [phone] pg/mL Performed at: [facility] [id number] Ware Dresser: Tejinder Wheeler PhD, Phone: [phone] Performing Lab: see note - [facility] LB IRON AND TIBC (Not yet revie wed by provider) Interpretation: Performing Lab: Notes/Report: [facility] , Iron 28.0 65.0-175.0 ug/dL Total Iron Binding Capacity 124.0 250.0-450.0 ug/dL Percent Iron Saturation 22.6 Performing Lab: see note ML - [facility] LB FERRITIN (Not yet reviewed b y provider) Interpretation: Performing Lab: Notes/Report: [facility] , Ferritin 772.0 26.0-388.0 ng/mL Performing Lab: see note ML - [facility] LB CRP (Not yet reviewed by pro vider) Interpretation: Performing Lab: Notes/Report: [facility] , C Reactive Protein 15.33 <=0.50 mg/dL Performing Lab: see note ML - [facility] LB Erythrocyte Sedimentation Ra te (Not yet reviewed by provider) Interpretation: Performing Lab: Notes/Report: [facility] , Erythrocyte Sedimentation Rate >130 <=20 mm/hr Performing Lab: see note ML - [facility] LB PROF CHEM 8 (BAS METB) (Not yet reviewed by provider) Interpretation: Performing Lab: Notes/Report: [facility] , Sodium 138 136-145 mmol/L Potassium 3.8 3.5-5.1 mmol/L Chloride 104 98-107 mmol/L Carbon Dioxide 30.3 21.0-32.0 mmol/L Anion Gap 7.5 Glucose 193 74-106 mg/dL Blood Urea Nitrogen 34.0 7.0-18.0 mg/dL Creatinine 1.33 0.70-1.30 mg/dL Estimated GFR ( Randi >60 >=60 Estimated GFR (Non- Selene 54 >=60 BUN Creatinine Ratio 25.6 Calcium 8.6 8.5-10.1 mg/dL Performing Lab: see note ML - [facility] LB FERRITIN (Not yet reviewed b y provider) Interpretation: Performing Lab: Notes/Report: [facility] , Ferritin 476.0 26.0-388.0 ng/mL Performing Lab: see note ML - [facility] LB CRP (Not yet reviewed by pro vider) Interpretation: Performing Lab: Notes/Report: [facility] , C Reactive Protein 6.23 <=0.50 mg/dL Performing Lab: see note ML - [facility] LB Erythrocyte Sedimentation Ra te (Not yet reviewed by provider) Interpretation: Performing Lab: Notes/Report: [facility] , Erythrocyte Sedimentation Rate >130 <=20 mm/hr Performing Lab: see note ML - [facility] LB IRON AND TIBC (Not yet revie wed by provider) Interpretation: Performing Lab: Notes/Report: [facility] , Iron 32.0 65.0-175.0 ug/dL Total Iron Binding Capacity 179.0 250.0-450.0 ug/dL Percent Iron Saturation 17.9 Performing Lab: see note ML - [facility] LB FERRITIN (Not yet reviewed b y provider) Interpretation: Performing Lab: Notes/Report: [facility] , Ferritin 370.0 26.0-388.0 ng/mL Performing Lab: see note ML - [facility] LB CBC AUTO DIFF (Not yet revie wed by provider) Interpretation: Performing Lab: Notes/Report: [facility] , White Blood Count 9.8 4.0-11.0 [...] Performing Lab: see note ML - [facility] LB Type and Screen (Not yet rev iewed by provider) Interpretation: Performing Lab: Notes/Report: [facility] , Blood Type A Negative Antibody Screen NEGATIVE Packed Red Blood Cells (Not yet reviewed by provider) Interpretation: Performing Lab: Notes/Report: Packed Red Blood Cells [id number] ON RC TRANSFUSED 10/12/23 1208 [id number] ON RC TRANSFUSED 10/12/23 1337 Reason For Referral No Information Medications Medication [...] Administration Date Status Comme nts Flu, Fluarix (04490) 6 mos a nd older, single-dose (0192-9808) Unknown 02/11/2023 Administered Social History Tobacco Use: Social History Observation Description Date Details (start date - stop date) Never Smoker NA - NA Tobacco Control (Standard) Question Answer Notes Tobacco use: Nonsmoker Problems Problem Type SNOMED Code ICD Code Onset Dates Problem Status W/U Status Risk Notes Problem 855302555 Anemia, unspecified (D64.9) Active confirmed Problem Foot ulcer due to type 2 diabetes mellitus (1344832587162) Type 2 diabetes mellitus with foot ulcer (E11.621) Active confirmed Problem Chronic ulcer of foot (304164495) Non-pressure chronic ulcer of left heel and midfoot with fat layer exposed (L97.422) Active confirmed Problem Non-pressure chronic ulcer of other part of right lower leg with necrosis of muscle (L97.813) Active confirmed Problem Obesity (513951840) Obesity (E66.9) Active confirmed Problem Hypertension (36333639) HTN (hypertension) (I10) Active confirmed Problem Obstructive sleep apnea syndrome (84563361) JAE (obstructive sleep apnea) (G47.33) Active confirmed Problem Neurogenic bladder (306440062) Neurogenic bladder (N31.9) Active confirmed Problem Iron deficiency anemia (46166976) Iron deficiency anemia (D50.9) Active confirmed Problem Leukocytosis (375451923) Leukocytosis (D72.829) Active confirmed Problem Skin ulcer associated with diabetes mellitus (905832930) DM type 2 causing leg or foot ulcer (E11.622) Active confirmed Problem Paraplegia (87378644) Paraplegic spinal paralysis (G82.20) Active confirmed Problem Leukocytosis (530709545) Elevated WBCs (D72.829) Active confirmed Problem Chronic paraplegia (872989960) Chronic paraplegia (G82.20) Active confirmed Problem Chronic ulcer of foot (152216454) Non-pressure chronic ulcer of right heel and midfoot with fat layer exposed (L97.412) Active confirmed Problem Skin ulcer of right knee with fat layer exposed (L97.812) Active confirmed Problem Pressure injury of right heel stage II (disorder) (42163216292133) Decubitus ulcer of right heel, stage 2 (L89.612) Active confirmed Problem Malnutrition of moderate degree (Oswald: 60% to less than 75% of standard weight) (71199594) Moderate protein malnutrition (E44.0) Active confirmed Problem Stasis edema with ulcer of both lower extremities (I87.313) Active confirmed Problem Chronic ulcer of ankle (595419677) Non-pressure chronic ulcer of right ankle with [...] severity (L97.818) Active confirmed Problem Ankle ulcer (202449351) Ischemic ulcer of right ankle with fat [...] Encounter Location Date Provider Diagnosis Pulmonary Medicine [address] [place] [address] 06/21/2024 Raghavendra Martins JAE (obstructive sleep apnea) G47.33 ; Chronic paraplegia G82.20 and Obesity E66.9 [facility] [address] [place] [address] 03/16/2024 Jesus Bahena [facility] [address] [place] [address] 09/26/2024 Nina Sanchezwla [facility] [address] [place] [address] 10/12/2023 Nina Sanchezwla [facility] [address] [facility] [place] [address] 10/26/2023 Nina River [facility] [address] [place] [address] 12/07[facility] [address] [facility] [place] [address] 02/15/2024 [facility] [address] [facility] [place] [address] 09/26/2024 [facility] [address] [facility] [place] [address] 05/30[facility] [place] [address] [facility] [place] [address] 12/13/2023 [facility] [place] [address] [facility] [place] [address] 12/27/2023 [facility] [place] [address] [facility] [place] [address] 02/28/2024 Raghavendra Martins [facility] [place] (PODIATRY) [address] [place] [address] 03/16/2024 Jesus Bahena [facility] [place] (PODIATRY) [address] [place] [address] 03/16/[address] [facility] [place] [address] [facility] [place] [address] 04/17/2024 [facility] Assessments Encounter Date Diagnosis (ICD Code) Assessment Notes Treatment Notes Treatment Clinical Notes Section Notes 06/21/2024 JAE (obstructive sleep apnea) (ICD-10 - G47.33) Asqg-hi-kczk encounter performed with the patient to document continued need for PAP therapy. -DME: [facility]-Utoyn-gnyig study 03/14/2021: AHI 79; Titration: CPAP 79uyG2P, though BiPAP also used during the study-Compliance was reviewed from 05/20/2024 - 06/18/2024-Total days used: (100%)-Total of all days >4 hours of use: 30 (100%)-Current model, mode, & pressure(s): AirSense 11 AutoSet CPAP 13gyO2Y-Orffzszy AHI: 13.7-Median air leak: 34.6L/min-Mask/harn ess fitting: Okay even with julien-Sleep quality: Wakes up once a night d/t pain-Daytime hypersomnolence: Not waking up feeling refreshed in the morning-Recommendat ions: He has superb compliance, but AHI is suboptimal @ 13.7 (goal <5). This is despite the patient losing 25# since last visit. Previously was on BiPAP and more recently CPAP 66meH1T. Currently at 66ujR5I. Discussed several options including increasing pressure to 76tmA7I or changing to an auto-CPAP. Patient voiced he would be okay with either option. Will try auto-CPAP to start 10-63fkK4Q - if unable to do so, will change pressure to 93xfB9G and recheck compliance in 1 month. He was counseled to continue using it every night and with naps.-This hvxx-ae-xaii visit comes with the recommendation that the [...] uremic leon. No change to soaps, detergents, python django developer, body wash, etc. Diphenhydramine and hydroxyzine did not help. Question ferrous sulfate - this was the most recent change to his regimen, and there are case reports of itching/rashes associated with it. I strongly suggested he discuss this with Dr. River and/or his PCP, or referral to an rock cutter. Plan Of Treatment Pending Test Test Name [...] AUTO DIFF 06/06/2024 CBC AUTO DIFF 08/10/2024 CBC AUTO DIFF 09/11/2024 CBC AUTO DIFF 09/26/2024 CRP 05/30/2024 CRP 02/14/2024 CRP 10/26/2023 CRP 12/02/2023 CRP 07/22/2023 FERRITIN 08/31/2023 FERRITIN 09/29/2023 FERRITIN 12/02/2023 FERRITIN 02/14/2024 FERRITIN 10/26/2023 FERRITIN 05/30/2024 FERRITIN 08/10/2024 FERRITIN 09/11/2024 IRON AND TIBC 09/11/2024 IRON AND TIBC 08/10/2024 IRON AND TIBC 05/30/2024 IRON AND TIBC 12/02/2023 IRON AND TIBC 02/14/2024 IRON AND TIBC 10/26/2023 IRON AND TIBC 09/29/2023 IRON AND TIBC 08/31/2023 PROF 14(COMP METB) 10/26/2023 PROF 14(COMP METB) 09/26/2024 PROF CHEM 8 (BAS METB) 12/02/2023 PROF CHEM 8 (BAS METB) 05/30/2024 PROF CHEM 8 (BAS METB) 03/10/2024 PROF CHEM 8 (BAS METB) 09/11/2024 PROF CHEM 8 (BAS METB) 08/10/2024 PROF CHEM 8 (BAS METB) 08/31/2023 PROF CHEM 8 (BAS METB) 07/22/2023 PROF CHEM 8 (BAS METB) 09/29/2023 AFB Specimen Processing 07/08/2023 Acid Fast Smear 07/08/2023 Acid Fast Culture 07/08/2023 ECG 12 lead 03/10/2024 Fungus Stain 07/08/2023 Erythrocyte Sedimentation Rate 4 Erythrocyte Sedimentation Rate Erythrocyte Sedimentation Rate Erythrocyte Sedimentation Rate Erythrocyte Sedimentation Rate Erythrocyte Sedimentation Rate 4 Packed Red Blood Cells 06/06/2024 Packed Red Blood Cells 10/12/2023 Packed Red Blood Cells 07/27/2023 Type and Screen 07/27/2023 Type and Screen 10/12/2023 Type and Screen 06/06/2024 MYELO DYSPL SYNDROME (MDS), DIAGNOSTIC F GIULIANA, VARIES 10/11/2023 Reticulocyte Pct Auto 09/29/2023 Erythropoietin (EPO), Serum 09/29/2023 VC SEGMENTAL PRESSURES 03/06/2024 Vitamin B12 02/14/2024 Next Appt Details Provider Name:Nina Aleta , 11/28/2024 11:15:00 AM, [address] [place], [address], Provider Name:Raghavendra Martins, 06/13/2025 11:00:00 AM, [address] [place], [address], Insurance Providers Payer Name Payer Address Payer Phone Subscriber Number Group Number Insured Name Patient Relationship to Insured Coverage Start Date Coverage End Date [place]IC[place] [address] [place] [address] [id number] Joel Stinson Self - patient is the [...] of COVID-19 [id number] Surgical History Surgery Date(Month/Year) Appendectomy Lumbar surgery for cauda equina syndrome Urethral dilation EGD Colonoscopy Hospitalization History Reason Date(Month/Year) Left lower extremity chronic ulcer, cell ulitis 10/07/2022
--- OUTSIDE RECORDS SUMMARY | 2024-10-11 13:01 | XMS_ITS | Encounter Summary ---
Author Organization [facility] Address [address] [place] [address] Care Team Providers Care Ethylbenzene Oxidizer Name Role Phone Fidel Reis MD Unavailable Fidel Reis MD Primary Care Provider [phone] Fidel Reis MD Unavailable Alvin Gonzalez MA [...] often do you attend chur ch or confucianism services? Patient declined 10/17/2023 Do you belong to any clubs o r organizations such as temple groups, unions, fraternal or athletic groups, or [...] and heating? Not hard at all 10/17/2023 [facility] [place] [facility] - Occupational Stress [...] any time in the past 12 m [facility], were you homeless or living in a fdc (including now)? No 10/17/2023 Sex and Gender [...] Visit [facility] [address] [place] [address] Fidel Reis MD [address] [place] [address] documented as of this encounter Procedures Procedure Name Priority Date/Time Associated Diagnosis Comments ECG 12-LEAD 03/10/2024 10:37 AM EST documented in this encounter Results * ECG 12-LEAD (03/10/2024 10:37 AM EST) Anatomical Region Laterality Modality Other 03/10/2024 10:3 7 AM EST Narrative 03/10/2024 5:24 PM EST [place] [id number] Electrocardiograph Report Signed Patient: JOEL MIRANDA MR#: [id number] : 1960 Acct:[id number] Age/Sex: 63 / M ADM Date: 03/10/24 Loc: PST Attending Dr: Jesus Bahena D.P.M. Ordering Physician: Jesus Bahena D.P.M. 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 Signed By: 03/10/241723 DD/ 1037 TD/TT: Activity Therapist: Procedure Note Radiology, Radiologist, MD - 03/10/2024 [facility] [place] [id number] Electrocardiograph Report Signed Patient: JOEL MIRANDA R#: [id number] : 1960cct:[id number] Age/Sex: 63 / MADM Date: 03/10/24 Loc: PST Attending Dr: Jesus Bahena D.P.M. Ordering Physician: Jesus Bahena D.P.M. 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 Signed By:03/10/241723 DD/ 1037 TD/TT: Activity Therapist: us Generic External Data Provider [facility] Final Result documented in this encounter Visit Diagnoses Not on filedocumented in this encounter Care Teams Ethylbenzene Oxidizer Relationship Specialty Start Date End Date Fidel Reis MD [address] [place] [address] PCP - [employer] 02/26/23 Fidel Reis MD [address] [place] [address] PCP - General Family Medicine 11/18/23 Fidel Reis MD [address] [place] [address] PCP - ACO Reach 05/05/24 08/29/24 Alvin Gonzalez, MA [address] [place] [address] Family Medicine 08/08/24 08/15/24 documented as of this encounter
--- OUTSIDE RECORDS SUMMARY | 2024-10-11 13:02 | XMS_ITS | Encounter Summary ---
Author Organization [facility] Address [address] [place] [address] Care Team Providers Care Product Management Internship Name Role Phone Fidel Reis MD Primary Care Provider [phone] Fidel Reis MD Unavailable Alvin Gonzalez MA Unavailable [phone] Encounter Details Date Type Department Care Team (Late st Contact Info) Description 08/10/2024 Results Follow-Up [facility] [address] [place] [phone] Fidel Reis MD [address] [place] [address] Social History Tobacco Use Types [...] How often do you attend [facility] or evangelical services? Patient declined 10/17/2023 Do you belong [...] and heating? Not hard at all 10/17/2023 [facility] - Occupational Stress Questionnaire Answer [...] any time in the past 12 m [facility], were you homeless or [...] Office Visit [facility] [address] [place] [address] Fidel Reis MD [address] [place] [phone] documented as of this encounter Visit Diagnoses Not on filedocumented in this encounter Care Teams Product Management Internship Relationship Specialty Start Date End Date Fidel Reis MD [address] [place] [address] PCP - General Family Medicine 11/18/23 Fidel Reis MD [address] [place] [address] PCP - ACO Reach 05/05/24 08/29/24 Alvin Gonzalez MA [address] [place] [address] Family Medicine 08/08/24 08/15/24 documented as of this encounter
--- OUTSIDE RECORDS SUMMARY | 2024-10-11 13:02 | XMS_ITS | Clinical Summary ---
Author Organization [facility] Healthcare Address [address] [place] [address] Care Team Providers Care Upper Lining Cementer Name Role Phone Fidel Reis MD Primary Care Provider [phone] Allergies Active Allergy Reactions Criticality Noted Date Comments Omadacycline 02/23/2023 Other Reaction(s): Kidney pain Vancomycin Other,Unknown 06/21/2015 NEPHROTOXICITY States had kidney issues after taking Medications oxybutynin XL (Ditropan-XL) 15 MG 24 hr tabletIndication s:Incontinence overflow, urine Take 1 tablet (15 mg) by mouth Daily 30 tablet 11 05/01/19 25 026 Active glipiZIDE (Glucotrol) 10 MG tabletIndication s:Type 2 diabetes mellitus with hyperglycemia, without long-term current use of insulin (HCC) TAKE 1 TABLET BY MOUTH TWICE DAILY (MORNING AND BEDTIME) 60 tablet 07/04/19 25 Active amLODIPine (Norvasc) 10 MG tabletIndication s:Primary hypertension Take 1 tablet by mouth once daily 30 tablet 08/15/19 25 Active atorvastatin (Lipitor) 40 MG tabletIndication s:Dyslipidemia TAKE 1 TABLET BY MOUTH IN THE MORNING 30 tablet 08/15/19 25 Active atenolol (Tenormin) 100 MG tabletIndication s:Benign hypertension Take 1 tablet by mouth once daily 30 tablet 08/29/19 25 Active citalopram (CeleXA) 40 MG tabletIndication s:Major depressive disorder, recurrent episode, mild Take 1 tablet by mouth once daily 30 tablet 08/29/19 25 Active Januvia 100 MG tabletIndication s:Type 2 diabetes mellitus with hyperglycemia, without long-term current use of insulin (HCC) Take 1 tablet by mouth once daily 30 tablet 08/29/19 25 Active lisinopril 20 MG tabletIndication s:Benign hypertension Take 1 tablet by mouth once daily 30 tablet 08/29/19 25 Active hydrOXYzine HCl (Atarax) 50 MG tabletIndication s:Pruritus TAKE 1 TABLET BY MOUTH 4 TIMES DAILY NEEDED FOR ITCHING 30 tablet 09/23/19 25 Active hydrOXYzine HCl (Atarax) 50 MG tabletIndication s:Pruritus Take 1 tablet (50 mg) by mouth 4 (four) times a day as needed for itching 120 tablet 5 08/01/19 25 025 Discontinued Active Problems Problem Noted Date Diagnosed Date [...] Major depressive disorder, recurrent episode, mi ld 04/06/2023 Assessment & Plan (07/31/2024 11:18 AM [...] Dyslipidemia 04/06/2023 Chronic kidney disease, stage 3a 04/06/2023 Resolved Problems Problem Noted Date Diagnosed Date Resolved Date Pruritus 11/18/2023 01/20/2024 Assessment & Plan (11/18/2023 2:11 PM EDT): C/o itching and try hydroxyzine. Encounters Date Type Department Care Team Description 10/05/[address] [facility] [address] [place] [address] Klaus Brar MD 10/02/2024 External Result Encounter [facility] External Department Unsolicited Klaus Brar MD 10/02/2024 External Result Encounter [facility] External Department Unsolicited Klaus Brar MD 10/02/2024 External Result Encounter [facility]S External Department Unsolicited Klaus Brar MD 09/26/2024 Clinisync Result Encounter [facility]OMS External Department Unsolicited Provider, Generic External Data 09/22/2024 Refill [facility] [address] [place] [phone] Fidel Reis MD [facility] 09/11/2024 Clinisync Result Encounter [facility]OM[facility] External Department Unsolicited Provider, Generic External Data 08/27/2024 Refill [facility] [address] [place] [phone] Fidel Reis MD Benign hypertension ; Major depressive disorder, recurrent episode, mild ; Type 2 diabetes mellitus with hyperglycemia, without long-term current use of insulin (HCC) 08/15/2024 Patient Outreach [facility] [address] [place] [phone] [place], [place] 08/15/[address] [facility] [address] [facility] [address] [place] [phone] [place], [place] reschedule [facility] 08/13/2024 Refill [facility] [address] [place] [phone] Fidel Reis MD Primary hypertension ; Dyslipidemia 08/10/2024 Results Follow-Up [facility] [address] [place] [address] Fidel Reis MD 08/10/2024 Clinisync Result Encounter NOMS External Department Unsolicited Provider, Generic External Data 07/31/2024 10:45 AM EDT Office Visit [facility] [address] [place] [phone] Fidel Reis MD Type 2 diabetes mellitus with hyperglycemia, without long-term current use of insulin (HCC) (Primary Dx); Benign hypertension ; Major depressive disorder, recurrent episode, mild ; Incontinence overflow, urine; Chronic superficial 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; Urticaria; Pruritus; Annual physical exam; Chronic kidney disease, stage 3a ([facility]); Class 2 severe obesity due to excess calories with serious comorbidity and body mass index (BMI) of 36.0 to 36.9 in adult ([facility]); Type 2 diabetes mellitus with other specified complication ([facility]); Hyperlipidemia, unspecified ; Pressure ulcer of right heel, unstageable ([facility]); Type 2 diabetes mellitus with other skin ulcer (CODE) ([facility]); Paraplegia, unspecified ([facility]); Diabetes mellitus due to underlying condition with diabetic polyneuropathy ([facility]) 07/31/2024 Bamboo flowsheet [facility] [address] [place] [phone] Fidel Reis MD 07/23/2024 Refill [facility] [address] [place] [address] Fidel Reis MD Benign hypertension ; Type 2 diabetes mellitus with hyperglycemia, without long-term current use of insulin ([facility]) 07/17/2024 Refill [facility] [address] [place] [place] [address] Fidel Reis MD Pruritus from Last 3 Months Social History Tobacco [...] week 10/17/2023 How often do you attend [facility] or moravian services? Patient declined 10/17/2023 Do you belong to any clubs o r organizations such as presybeterian groups, unions, fraternal or athletic groups, or [...] and heating? Not hard at all 10/17/2023 [facility] - Occupational Stress Questionnaire Answer Date [...] any time in the past 12 m [facility], were you homeless or [...] 02/01/2025 10:30 AM EST [facility] [address] [place] [address] Fidel Reis MD [address] [place] [address] Health Maintenance Due Date Last Done Comments CT Colonography 1960 FIT-DNA 1960 FIT 1960 Sigmoidoscopy 1960 Diabetes: Retinopathy Screening 07/08/1971 Diabetes: Urine Protein Screening 04/24/2016 016 Diabetes: Hemoglobin A1C 10/06/2022 2022, 03/29 FOBT 06/26/2023 06/25/2022 Influenza Vaccine (#1) 2024 3, 04/10/2017, 01/01/2015, Additional history exists Colonoscopy 06/26/2032 06/26/2022, 06/26/2022 Colorectal Cancer Screening 06/26/2032 Procedures Procedure Name Priority Date/Time Associated Diagnosis Comments GENERAL PATHOLOGY Routine 10/02/2024 2:1 4 PM EDT GLUCOSE POCT GLUCOMETERS Routine 10/02/2024 1:03 PM EDT AEROBIC RENAN CHARGE (NMIC56) Routine 10/02/2024 12:38 PM EDT ANAEROBIC CULTURE Routine 10/02/2024 12: 38 PM EDT AEROBIC CULTURE Routine 10/02/2024 12:38 PM EDT GRAM STAIN Routine 10/02/2024 12:38 PM EDT GLUCOSE POCT GLUCOMETERS Routine 10/02/2024 10:54 AM EDT [facility] CMP (CMP) (FOR [facility] USE) Routine 09/26/2024 11:39 AM EDT ALL CBC WITH AUTO DIFF Routine 09/26/2024 11:39 AM EDT [facility] FERRITIN Routine 09/11/2024 11:51 AM EDT METRO IRON AND TIBC Routine 09/11/2024 1 1:51 AM EDT ALL BASIC METABOLIC PANEL Routine 09/11/2024 11:51 AM EDT ALL CBC WITH AUTO DIFF Routine 09/11/2024 11:51 AM EDT MLR HEMOGLOBIN A1C Routine 08/10/2024 [...] AUTO DIFF Routine 08/10/2024 11:00 AM EDT from Last 3 Months Results * GENERAL PATHOLOGY (10/02/2024 2:14 PM EDT) Klaus Edwards MD [facility] Final Result * GLUCOSE POCT GLUCOMETERS (10/02/2024 1:03 PM EDT) Only the most recent of2 resultswithin the time period is included. [facility] GLUCOSE POC GLUCOMETERS 74 mg/dL 10/02/2024 1:21 PM EDT [facility] Comment: Random Glucose Reference Range is dependent on time and content of last meal. Glucose of more than 200 mg/dL in a nonstressed, ambulatory subject supports the diagnosis of Diabetes Mellitus. Blood (Blood) 10/02/2024 1:0 3 PM EDT 10/02/2024 1:20 PM EDT Klaus Edwards MD LAB BLOOD ORDERABLES Final R esult [facility] [address] [place] [address], * (ABNORMAL) AEROBIC RENAN CHARGE (NMIC56) (10/02/2024 12:38 PM EDT) [facility] AMIKACIN <16(S) 10/07/2024 9:27 AM EDT [facility] AZTREONAM <4(I) 10/07/2024 9:27 AM EDT [facility] CEFEPIME <2(S) 10/07/2024 9:27 AM EDT [facility] CEFTAZIDIME 4(I) 10/07/2024 9:27 AM EDT [facility] CEFTAZIDIME/AVIBA CTAM <4(S) 10/07/2024 9:27 AM EDT [facility] CEFTOLOZANE/TAZOB ACTAM <2(S) 10/07/2024 9:27 AM EDT [facility] CIPROFLOXACIN <0.25(S) 10/07/2024 9:27 AM EDT [facility] GENTAMICIN <2(S) 10/07/2024 9:27 AM EDT [facility] LEVOFLOXACIN <0.5(S) 10/07/2024 9:27 AM EDT [facility] MEROPENEM <1(S) 10/07/2024 9:27 AM EDT [facility] PIPERACILLIN/TAZO BACTAM <8(I) 10/07/2024 9:27 AM EDT [facility] TOBRAMYCIN <2(S) 10/07/2024 9:27 AM EDT [facility] Other Left hip region structure / Unknown 10/02/2024 12:38 PM EDT 10/02/2024 1:17 PM EDT Comment:Tissue Klaus Edwards MD [facility] Final Result [facility] [address] [place] [address], [facility] [address] [place] [address] * ANAEROBIC CULTURE (10/02/2024 12:38 PM EDT) [facility] ORGANISM Prevotella disiens 10/07/2024 9:31 AM EDT [facility] QUANTITY OF GROWTH Heavy Growth 10/07/2024 9:31 AM EDT [facility] Comment: Please contact Microbiology within 7 days if anaerobic susceptibilities are needed. Other Left hip region structure / Unknown 10/02/2024 12:38 PM EDT 10/02/2024 1:17 PM EDT Comment:Tissue Narrative [facility] - 10/07/2024 9:31 AM EDT Comment Left Hip Tissue Culture Klaus Edwards MD LAB BLOOD ORDERABLES Final R esult Performing Organization Address [facility] Co de Phone Number [facility] [address] [place] [address], [facility] [address] [place] [address] * AEROBIC CULTURE (10/02/2024 12:38 PM EDT) [facility] ORGANISM Strep dysgalactiae 10/07/2024 9:27 AM EDT [facility] COMMENTS Organism Not Routinely Tested for Susceptibilities 10/07/2024 9:27 AM EDT [facility] QUANTITY OF GROWTH Moderate Growth 10/07/2024 9:27 AM EDT [facility] ORGANISM Corynebacterium striatum group 10/07/2024 9:27 AM EDT [facility] COMMENTS Organism Not Routinely Tested for Susceptibilities 10/07/2024 9:27 AM EDT [facility] QUANTITY OF GROWTH Light Growth 10/07/2024 9:27 AM EDT [facility] ORGANISM Pseudomonas aeruginosa 10/07/2024 9:27 AM EDT [facility] QUANTITY OF GROWTH Rare Growth 10/07/2024 9:27 AM EDT [facility] Other Left hip region structure / Unknown 10/02/2024 12:38 PM EDT 10/02/2024 1:17 PM EDT Comment:Tissue Narrative [facility] - 10/07/2024 9:31 AM EDT Comment Left Hip Tissue Culture Klaus Edwards MD LAB BLOOD ORDERABLES Final R esult Performing Organization Address City/[facility]/ZIP Co de Phone Number [facility] [address] [place] [address], [facility] [address] [place] [address] * Gram stain (10/02/2024 12:38 PM EDT) GRAM STAIN No White Blood Cells Seen 10/03/2024 2:05 PM EDT [facility] GRAM STAIN No Bacteria Seen 10/03/2024 2:05 PM EDT [facility] Other Left hip region structure / Unknown 10/02/2024 12:38 PM EDT 10/02/2024 1:17 PM EDT Comment:Tissue Narrative [facility] - 10/07/2024 9:31 AM EDT Comment Left Hip Tissue Culture Klaus Edwards MD LAB MICROBIOLOGY - GENERAL O RDERABLES Final Result [facility] [address] [place] [address], [facility] [address] [place] [address] * (ABNORMAL) [facility] CMP (CMP) (FOR [facility] USE) (09/26/2024 11:39 AM EDT) SODIUM 139 136 - 145 mmol/L TBH POTASSIUM 4.0 3.5 - 5.1 mmol/L TBH CHLORIDE 106 98 - 107 mmol/L TBH CARBON DIOXIDE 24.0 21.0 - 32.0 mmol/L TBH ANION GAP 13.0 TB GLUCOSE 204(H) 74 - 106 mg/dL TB BLOOD UREA NITROGEN 34.0(H) 7.0 - 18.0 mg/dL TBH CREATININE 1.78(H) 0.70 - 1.30 mg/dL TBH TBH EGFR-AF BAHAMIAN 47(L) >=60 mL/min/1. 73m 2 TBH TBH EGFR-NON AF BAHAMIAN 39(L) >=60 mL/min/1. 73m 2 TB BUN CREATININE RATIO 19.1 TBH CALCIUM 8.7 8.5 - 10.1 mg/dL TBH BILIRUBIN TOTAL 0.2 0.2 - 1.0 mg/dL TB ASPARTATE AMINO TRANSFERASE 11(L) 15 - 37 U/L TBH ALANINE AMINOTRANSFERASE 11(L) 16 - 63 U/L TBH ALKALINE PHOSPHATASE 128(H) 46 - 116 U/L TBH TOTAL PROTEIN 7.8 6.4 - 8.2 g/dL TBH ALBUMIN LEVEL 1.7(L) 3.4 - 5.0 g/dL TBH GLOBULIN 6.1 g/dL TBH ALBUMIN GLOBULIN RATIO 0.3 TBH 09/26/2024 11:3 9 AM EDT 09/26/2024 11:49 AM EDT Narrative [facility] - 09/26/2024 12:17 PM EDT us Generic External Data Provider [facility] F inal Result [facility] * (ABNORMAL) ALL CBC WITH AUTO DIFF (09/26/2024 11:39 AM EDT) Only the most recent of3 resultswithin the time period is included. TB WBC 13.5(H) 4.0 - 11.0 10 3/uL TBH TBH RBC 2.78(L) 4.70 - 6.10 10 6/uL TBH TBH HGB 7.4(L) 14.0 - 18.0 g/dL TBH TBH HCT 23.2(LL) 42.0 - 54.0 % TBH Comment:RESULTS CALLED TO NICHOL SWAN RN TB MCV 83.5 80.0 - 94.0 fL TBH TBH MCH 26.6 25.9 - 34.0 pg TBH TBH MCHC 31.9 29.9 - 35.2 g/dL TBH TB RDW 14.3 11.0 - 15.0 % TBH TBH PLT 306 150 - 450 10 3/uL TBH TBH MPV 8.8(L) 9.5 - 13.5 fL TBH NEUTROPHILS PERCENT AUTO 68.6 43.0 - 75.0 % TBH LYMPHOCYTES PERCENT AUTO 13.3(L) 20.5 - 60.0 % TBH MONOCYTES PERCENT AUTO 7.8 1.7 - 12.0 % TBH TBH EO % 9.5(H) 0.9 - 7.0 % TBH BASOPHILS PERCENT AUTO 0.3 0.2 - 2.0 % TBH IMMATURE GRANULOCYTES PCT AUTO 0.5 0.0 - 0.5 % TBH NEUTROPHILS ABSOLUTE AUTO 9.3(H) 1.4 - 6.5 10 3/uL TBH LYMPHOCYTES ABSOLUTE AUTO 1.8 1.2 - 3.8 10 3/uL TBH MONOCYTES ABSOLUTE AUTO 1.1(H) 0.3 - 0.8 10 3/uL TBH TBH EO # 1.3(H) 0.0 - 0.7 10 3/uL TBH BASOPHILS ABSOLUTE AUTO 0.0 0.0 - 0.1 10 3/uL TBH IMMATURE GRANULOCYTES ABS AUTO 0.07(H) 0.00 - 0.03 10 3/uL TBH 09/26/2024 11:3 9 AM EDT 09/26/2024 11:49 AM EDT Narrative [facility] - 09/26/2024 12:09 PM EDT Generic External Data Provider [facility] ina Result Performing Organization Address [facility] de Phone Number [facility] * (ABNORMAL) METRO IRON AND TIBC (09/11/2024 11:51 AM EDT) Only the most recent of2 resultswithin the time period is included. TBH IRON 28.0(L) 65.0 - 175.0 ug/dL TBH TBH TOTAL IRON BINDING CAPACITY 165.0(L) 250.0 - 450.0 ug/dL TBH TBH PERCENT IRON SATURATION 17.0 % TBH 09/11/2024 11:5 1 AM EDT 09/11/2024 11:53 AM EDT Narrative [facility] - 09/11/2024 12:56 PM EDT Generic External Data Provider [facility] F ina Result Performing Organization Address [facility] de Phone Number [facility] * (ABNORMAL) [facility] FERRITIN (09/11/2024 11:51 AM EDT) Only the most recent of2 resultswithin the time period is included. FERRITIN 485.0(H) 26.0 - 388.0 ng/mL TB 09/11/2024 11:5 1 AM EDT 09/11/2024 11:53 AM EDT Narrative [facility] - 09/11/2024 1:05 PM EDT Generic External Data Provider EZRAID Raul vidal Result Performing Organization Address City/[facility]/ZIP Co de Phone Number [facility] * (ABNORMAL) ALL BASIC METABOLIC PANEL (09/11/2024 11:51 AM EDT) Only the most recent of2 resultswithin the time period is included. SODIUM 140 136 - 145 mmol/L TBH POTASSIUM 4.1 3.5 - 5.1 mmol/L TBH CHLORIDE 106 98 - 107 mmol/L TBH CARBON DIOXIDE 26.5 21.0 - 32.0 mmol/L TBH ANION GAP 11.6 TBH GLUCOSE 200(H) 74 - 106 mg/dL TBH BLOOD UREA NITROGEN 26.0(H) 7.0 - 18.0 mg/dL TBH CREATININE 2.05(H) 0.70 - 1.30 mg/dL TBH TBH EGFR-AF BAHAMIAN 40(L) >=60 mL/min/1.7 3m 2 TBH TBH EGFR-NON AF BAHAMIAN 33(L) >=60 mL/min/1.7 3m 2 TBH BUN CREATININE RATIO 12.7 TBH CALCIUM 8.9 8.5 - 10.1 mg/dL TBH 09/11/2024 11:5 1 AM EDT 09/11/2024 11:53 AM EDT Narrative [facility] - 09/11/2024 12:34 PM EDT Generic External Data Provider GARY perez Result Performing Organization Address City/[facility]/ZIP Co de Phone Number [facility] * SRMCOH PROSTATE SPECIFIC ANTIGEN SCRN (08/10/2024 11:00 AM EDT) PROSTATE SPECIFIC ANTIGEN SCRN 0.44 <=4.00 ng/mL TB 08/10/2024 11:0 0 AM EDT 08/10/2024 11:02 AM EDT Narrative [facility] - 08/10/2024 12:40 PM EDT Fidel VEGA Final Result [facility]IN[facility] * (ABNORMAL) MLR HEMOGLOBIN A1C (08/10/2024 11:00 AM EDT) GLYCOHEMOGLOBIN A1C 6.8(H) 4.5 - 6.2 % TB Comment: ADA RECOMMENDED LIMIT 4.0 - 6.0 ADA THERAPEUTIC TARGET < 7.0 ACTION SUGGESTED > 7.0 ESTIMATED AVERAGE GLUCOSE 148 mg/dL TB 08/10/2024 11:0 0 AM EDT 08/10/2024 11:02 AM EDT Narrative [facility] - 08/10/2024 12:40 PM EDT Fidel VEGA Final Result Performing Organization Address [facility]/ZIP Co de Phone Number [facility] * (ABNORMAL) HMHP LIVER PANEL (08/10/2024 11:00 AM EDT) BILIRUBIN TOTAL 0.2 0.2 - 1.0 mg/dL TB BILIRUBIN DIRECT 0.1 0.0 - 0.2 mg/dL TBH ASPARTATE AMINO TRANSFERASE 15 15 - 37 U/L TBH ALANINE AMINOTRANSFERASE 17 16 - 63 U/L TBH ALKALINE PHOSPHATASE 116 46 - 116 U/L TB TOTAL PROTEIN 7.7 6.4 - 8.2 g/dL TBH ALBUMIN LEVEL 1.8(L) 3.4 - 5.0 g/dL TBH GLOBULIN 5.9 g/dL TBH ALBUMIN GLOBULIN RATIO 0.3 TBH 08/10/2024 11:0 0 AM EDT 08/10/2024 11:02 AM EDT Narrative [facility] - 08/10/2024 12:20 PM EDT Fidel CALDERAISYYASMIN Final Result [facility] TB * ALL THYROID STIM HORMONE (08/10/2024 11:00 AM EDT) THYROID STIMULATING HORMONE 1.267 0.358 - 3.740 uIU/mL TBH 08/10/2024 11:0 0 AM EDT 08/10/2024 11:02 AM EDT Narrative [facility] - 08/10/2024 12:20 PM EDT Fidel CALDERAISYYASMIN Final Result Performing Organization Address [facility] Phone Number [facility] TB * (ABNORMAL) ALL LIPID PROFILE (FASTING) [...] [facility] - 08/10/2024 12:20 PM EDT Fidel CALDERAISYYASMIN Final Result Performing Organization Address [facility] de Phone Number [facility] TB from Last 3 Months Insurance [facility] MEDICARE Care Teams [place] Cementer Relationship Specialty Start Date End Date Fidel Reis MD [address] [place] [phone] PCP - General Family Medicine 11/18/23
--- OUTSIDE RECORDS SUMMARY | 2024-10-11 13:02 | XMS_ITS | Encounter Summary ---
Author Organization [facility] Address [address] [place] [address] Care Team Providers Care Fighter Pilot Name Role Phone Fidel Reis MD Primary Care Provider [phone] Fidel Reis MD Unavailable Fidel Reis MD Primary Care Provider [phone] Fidel Reis MD Primary Care Provider [phone] Fidel Reis MD Primary Care Provider [phone] Fidel Reis MD Unavailable Alvin Gonzalez MA Unavailable [phone] Encounter Details Date Type Department Care Team (Late st Contact Info) Description 02/10/2023 External Result Encounter [facility] External Department Unsolicited Jonathan Bah DPM [address] [facility] [address] [place] [address] Social History Tobacco Use Types [...] Visit [facility] [address] [place] [phone] Fidel Reis MD [address] [place] [phone] documented as of this encounter Procedures Procedure Name Priority Date/Time Associated Diagnosis Comments XR FOOT 1-2 VIEWS LEFT 02/10/2023 9:34 PM EST documented in this encounter Results * XR foot 1 or 2 views left (02/10/2023 9:34 PM EST) Anatomical Region Laterality Modality Lower Extremities, Foot Left [facility] 02/10/2023 9:34 PM EST Impressions 02/11/2023 8:00 AM EST 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 There is diffuse soft tissue swelling with subcutaneous emphysema consistent with the immediate postoperative state. Impression dictated by: Canelo Red M.D.02/10/2023 9:36 PM Dictation Location: [facility]- Transcribed By: [facility] 02/10/232135 Dictated By: Canelo Red II, MD 02/10/232133 Signed By: <Electronically signed by Canelo Red II, MD in OV> 02/10/232135 Narrative 02/11/2023 8:00 AM EST [facility] [place] [address] XRay Report Signed Patient: Ganga Miranda MR#: [id number] : 1960 Acct:[id number] Age/Sex: 62 / M ADM Date: 02/06/23 Loc: Room: [address] [place] [address] Type: ADM IN Attending Dr: Suzy Douglas [...] 2V Procedure Note Radiology, Radiologist, - 02/11/2023 [facility] Main [place] [address] [place] [address] XRay Report Signed Patient: Ganga Miranda LMR#: [id number] : 2Acct:[id number] Age/Sex: 62 / MADM Date: 02/06/23 Loc: Room: [id number]: ADM IN Attending Dr: Suzy Douglas MD [...] Canelo Red M.D.02/10/2023 9:36 PM Dictation Location: [place] [address] Transcribed By: [facility] 02/10/232135 Dictated By: Canelo Red II, MD 02/10/232133 Signed By: <Electronically signed by Canelo Red II, MD inOV> 02/10/232135 us Jonathan A Brown DPM IMG XR PROCEDURES Final Res ult documented in this encounter Visit Diagnoses Not on filedocumented in this encounter Care Teams Fighter Pilot Relationship Specialty Start Date End Date Fidel Reis MD PCP - General Family Medicine 12/10/22 05/11/23 Fidel Reis MD [address] [place] [phone] PCP - [facility] 02/26/23 Fidel Reis MD [address] [place] [phone] PCP - General Family Medicine 05/12/23 08/29/23 Fidel Reis MD [address] [place] [phone] PCP - General Family Medicine 08/30/23 08/30/23 Fidel Reis MD [address] [place] [phone] PCP - General Family Medicine 11/18/23 Fidel Reis MD [address] [place] [phone] PCP - [facility] 05/05/24 08/29/24 Alvin Gonzalez MA [address] [place] [address] Family Medicine 08/08/24 08/15/24 documented as of this encounter
--- OUTSIDE RECORDS SUMMARY | 2024-10-11 13:02 | XMS_ITS | Encounter Summary ---
Author Organization [facility] Address [address] [place] [address] Care Team Providers Care Automotive Fleet Supervisor Name Role Phone Fidel Reis MD Primary Care Provider [phone] Fidel Reis MD Unavailable Fidel Reis MD Primary Care Provider [phone] Fidel Reis MD Primary Care Provider [phone] Fidel Reis MD Primary Care Provider [phone] Fidel Reis MD Unavailable Alvin Gonzalez MA Unavailable [phone] Encounter Details Date Type Department Care Team (Late st Contact Info) Description 02/08/2023 External Result Encounter [facility] External Department Unsolicited Jonathan Bah DPM [address] [facility] 5 [place] [address] Social History Tobacco Use Types [...] Visit [facility] [address] [place] [address] Fidel Reis MD [address] [place] [address] documented as of this encounter Procedures Procedure [...] Canelo Red M.D.02/08/2023 2:39 PM Dictation Location: [place] [address] Transcribed By: [facility] 02/08/23 143 Dictated By: Canelo Red II, MD 02/08/23 142 Signed By: <Electronically signed by Canelo Red II, MD in OV> 02/08/23 1439 Narrative 02/09/2023 7:59 AM EST [facility] [place] [address] MRI Report Signed Patient: Ganga Miranda MR#: [id number] : 1960 Acct:[id number] Age/Sex: 62 / M ADM Date: 02/06/23 Loc: Room: [address] [place] [address] Type: ADM IN Attending Dr: Suzy Douglas [...] con Procedure Note Radiology, Radiologist, - 02/09/2023 [facility] [place] [address] [place] [address] MRI Report Signed Patient: Ganga Miranda LMR#: [id number] : 1960cct:[id number] Age/Sex: 62 / MADM Date: 02/06/23 Loc: Room: [id number]: ADM IN Attending Dr: Suzy Douglas MD [...] Canelo Red M.D.02/08/2023 2:39 PM Dictation Location: [place] [address] Transcribed By: [facility] 02/08/23 1439 Dictated By: Canelo Red II, MD 02/08/23 142 Signed By: <Electronically signed by Canelo Red II, MD inOV> 02/08/23 143 Jonathna Bah DPM IMG MRI PROCEDURES Final Re sult documented in this encounter Visit Diagnoses Not on filedocumented in this encounter Care Teams Automotive Fleet Supervisor Relationship Specialty Start Date End Date Fidel Reis MD PCP - General Family Medicine 12/10/22 05/11/23 Fidel Reis MD [address] [place] [address] PCP - [facility] 02/26/23 Fidel Reis MD [address] [place] [address] PCP - General Family Medicine 05/12/23 08/29/23 Fidel Reis MD [address] [place] [address] PCP - General Family Medicine 08/30/23 08/30/23 Fidel Reis MD [address] [place] [address] PCP - General Family Medicine 11/18/23 Fidel Reis MD [address] [place] [address] PCP - [facility] 05/05/24 08/29/24 Alvin Gonzalez, REBEL [address] [place] [address] Family Medicine 08/08/24 08/15/24 documented as of this encounter
--- OUTSIDE RECORDS SUMMARY | 2024-10-11 13:02 | XMS_ITS | Encounter Summary ---
Author Organization [facility] Address [address] [place] [address] Care Team Providers Care Cloth Stock Sorter Name Role Phone Fidel Reis MD Primary Care Provider [phone] Fidel Reis MD Unavailable Fidel Reis MD Primary Care Provider [phone] Fidel Reis MD Primary Care Provider [phone] Fidel Reis MD Primary Care Provider [phone] Fidel Reis MD Unavailable Alvin Gonzalez MA Unavailable [phone] Encounter Details Date Type Department Care Team (Late st Contact Info) Description 09/08/2022 Abstract [facility] [address] [phone] Klaus Brar MD [address] [address] Social History Tobacco Use Types [...] 02/01/2025 10:30 AM EST [facility] [address] [place] [address] Fidel Reis MD [address] [place] [address] documented as of this encounter Visit Diagnoses Not on filedocumented in this encounter Care Teams Cloth Stock Sorter Relationship Specialty Start Date End Date Fidel Reis MD PCP - General Family Medicine 12/10/22 05/11/23 Fidel Reis MD [address] [place] [address] PCP - [facility] 02/26/23 Fidel Reis MD [address] [place] [address] PCP - General Family Medicine 05/12/23 08/29/23 Fidel Reis MD [address] [place] [address] PCP - General Family Medicine 08/30/23 08/30/23 Fidel Reis MD [address] [place] [address] PCP - General Family Medicine 11/18/23 Fidel Reis MD [address] [place] [address] PCP - [facility] 05/05/24 08/29/24 Alvin Gonzalez MA [address] [place] [address] Family Medicine 08/08/24 08/15/24 documented as of this encounter
--- OUTSIDE RECORDS SUMMARY | 2024-10-11 13:02 | XMS_ITS | Encounter Summary ---
Author Organization [facility] Address [address] [place] [address] Care Team Providers Care Care Aide Name Role Phone Fidel Reis MD Primary Care Provider [phone] Fidel Reis MD Unavailable Fidel Reis MD Primary Care Provider [phone] Fidel Reis MD Primary Care Provider [phone] Fidel Reis MD Primary Care Provider [phone] Fidel Reis MD Unavailable Alvin Gonzalez MA Unavailable [phone] Encounter Details Date Type Department Care Team (Late st Contact Info) Description 10/27/2022 Abstract [facility] [address] [phone] Klaus Brar MD [address] [address] Social History Tobacco Use Types [...] 02/01/2025 10:30 AM EST [facility] [address] [place] [address] Fidel Reis MD [address] [place] [address] documented as of this encounter Visit Diagnoses Not on filedocumented in this encounter Care Teams Care Aide Relationship Specialty Start Date End Date Fidel Reis MD PCP - General Family Medicine 12/10/22 05/11/23 Fidel Reis MD [address] [place] [address] PCP - [facility] 02/26/23 Fidel Reis MD [address] [place] [address] PCP - General Family Medicine 05/12/23 08/29/23 Fidel Reis MD [address] [place] [address] PCP - General Family Medicine 08/30/23 08/30/23 Fidel Reis MD [address] [place] [address] PCP - General Family Medicine 11/18/23 Fidel Reis MD [address] [place] [address] PCP - [facility] 05/05/24 08/29/24 Alvin Gonzalez MA [address] [place] [address] Family Medicine 08/08/24 08/15/24 documented as of this encounter
--- OUTSIDE RECORDS SUMMARY | 2024-10-11 13:02 | XMS_ITS | Encounter Summary ---
Author Organization [facility] Address [address] [place] [address] Care Team Providers Care Protection Analyst Name Role Phone Fidel Reis MD Primary Care Provider [phone] Fidel Reis MD Unavailable Fidel Reis MD Primary Care Provider [phone] Fidel Reis MD Primary Care Provider [phone] Fidel Reis MD Primary Care Provider [phone] Fidel Reis MD Unavailable Alvin Gonzalez MA Unavailable [phone] Encounter Details Date Type Department Care Team (Late st Contact Info) Description 09/08/2022 Abstract [facility] [address] [phone] Klaus Brar MD [address] [address] Social History Tobacco Use Types [...] 02/01/2025 10:30 AM EST [facility] [address] [place] [address] Fidel Reis MD [address] [place] [address] documented as of this encounter Visit Diagnoses Not on filedocumented in this encounter Care Teams Protection Analyst Relationship Specialty Start Date End Date Fidel Reis MD PCP - General Family Medicine 12/10/22 05/11/23 Fidel Reis MD [address] [place] [address] PCP - [facility] 02/26/23 Fidel Reis MD [address] [place] [address] PCP - General Family Medicine 05/12/23 08/29/23 Fidel Reis MD [address] [place] [address] PCP - General Family Medicine 08/30/23 08/30/23 Fidel Reis MD [address] [place] [address] PCP - General Family Medicine 11/18/23 Fidel Reis MD [address] [place] [address] PCP - [facility] 05/05/24 08/29/24 Alvin Gonzalez MA [address] [place] [address] Family Medicine 08/08/24 08/15/24 documented as of this encounter
--- OUTSIDE RECORDS SUMMARY | 2024-10-11 13:02 | XMS_ITS | Encounter Summary ---
Author Organization [facility] Address [address] [place] [address] Care Team Providers Care Appointment Coordinator Name Role Phone Fidel Reis MD Primary Care Provider [phone] Fidel Reis MD Unavailable Fidel Reis MD Primary Care Provider [phone] Fidel Reis MD Primary Care Provider [phone] Fidel Reis MD Primary Care Provider [phone] Fidel Reis MD Unavailable Alvin Gonzalez MA Unavailable [phone] Encounter Details Date Type Department Care Team (Late st Contact Info) Description 04/06/2023 Abstract [facility] [address] [place] [address] Fidel Reis MD [address] [place] [address] Social History Tobacco Use Types Packs/Day Years [...] Office Visit [facility] [address] [place] [address] Fidel Reis MD [address] [place] [address] documented as of this encounter Visit Diagnoses Not on filedocumented in this encounter Care Teams Appointment Coordinator Relationship Specialty Start Date End Date Fidel Reis MD PCP - General Family Medicine 12/10/22 05/11/23 Fidel Reis MD [address] [place] [address] PCP - [facility] 02/26/23 Fidel Reis MD [address] [place] [address] PCP - General Family Medicine 05/12/23 08/29/23 Fidel Reis MD [address] [place] [address] PCP - General Family Medicine 08/30/23 08/30/23 Fidel Reis MD [address] [place] [address] PCP - General Family Medicine 11/18/23 Fidel Reis MD [address] [place] [address] PCP - [facility] 05/05/24 08/29/24 Alvin Gonzalez MA [address] [place] [address] Family Medicine 08/08/24 08/15/24 documented as of this encounter
--- OUTSIDE RECORDS SUMMARY | 2024-10-11 13:02 | XMS_ITS | Encounter Summary ---
Author Organization [facility] Address [address] [place] [address] Care Team Providers Care Lining Scrubber Name Role Phone Fidel Reis MD Primary Care Provider [phone] Fidel Reis MD Unavailable Fidel Reis MD Primary Care Provider [phone] Fidel Reis MD Primary Care Provider Fidel Reis MD Primary Care Provider [phone] Fidel Reis MD Unavailable Alvin Gonzalez MA Unavailable [phone] Encounter Details Date Type Department Care Team (Late st Contact Info) Description 02/15/2023 Abstract [facility] [address] [place] [address] Jonathan Bah DPM [address] [address] Social History Tobacco Use Types [...] Office Visit [facility] [address] [place] [address] Fidel Reis MD [address] [place] [address] documented as of this encounter Visit Diagnoses Not on filedocumented in this encounter Care Teams Lining Scrubber Relationship Specialty Start Date End Date Fidel Reis MD PCP - General Family Medicine 12/10/22 05/11/23 Fidel Reis MD [address] [place] [address] PCP - [facility] 02/26/23 Fidel Reis MD [address] [place] [address] PCP - General Family Medicine 05/12/23 08/29/23 Fidel Reis MD [address] [place] [address] PCP - General Family Medicine 08/30/23 08/30/23 Fidel Reis MD [address] [place] [address] PCP - General Family Medicine 11/18/23 Fidel Reis MD [address] [place] [address] PCP - [facility] 05/05/24 08/29/24 Alvin Gonzalez, REBEL [address] [place] [address] Family Medicine 08/08/24 08/15/24 documented as of this encounter
== END 2024-10-11 12:58 | disposition home or self-care (01) ==
LOC: WC 12:58
PROVIDERS: PCP Family Medicine; Visit Provider Physician Assistant
DX: L97.312 Non-pressure chronic ulcer of right 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 (principal); L89.610 Pressure ulcer of right heel, unstageable; L97.813 Non-pressure chronic ulcer of other part of right lower leg with necrosis of muscle; L89.893 Pressure ulcer of other site, stage 3; L89.512 Pressure ulcer of right ankle, stage 2; L89.620 Pressure ulcer of left heel, unstageable
CPT/HCPCS: G0463

== ENCOUNTER 2024-11-08 10:30 | Outpatient (OUT) | payer BC, MEDICARE, SELFPAY ==
--- OUTSIDE RECORDS SUMMARY | 2024-08-29 06:30 | XMS_ITS ---
Author Organization [facility] in [place] Address [address] [place] [address] Care Team Providers Care Asphalt Paving Supervisor Name Role Phone Smiley NAZARIO, Fidel Primary Care Provider Unavailab Nina Griffin Unavailable [phone] REASON FOR VISIT MD Encounters Encounter Location Date Provider Diagnosis The [facility] Oncology [address] [place] [address] 08/29/2024 Nina River Plan Of Treatment Next Appt Details Provider Name:Nina River , 11/28/2024 11:15:00 AM, [address] [place] [address], [address], Provider Name:Raghavendra Martins, 06/13/2025 11:00:00 AM, [address] [place] [address], [address], Progress Notes * Ganga MIRANDA LDOB:1960 (64 yo M)Acc No.[id number]:08/29/2024 UNLOCKED PROGRESS NOTE Progress Notes Patient: Ganga LOPEZ Provider: Geoff River M.D. :1960 A ge:64 Y S ex:Male Date:08/29/2024 Address:[address] , [address], [place], [phone] Pcp:Fidel Reis MD Subjective: * Chief Complaints: * 1 . MD. * Medical History: Objective: * Vitals: Assessment: Plan: * Treatment: * * Electronic signature of Humberto River MD, [id number] on 11/08/2024 at 10:32 AM EDT Sign off status: Pending Visit Status: C ANC (Cancelled) * Provider: Geoff River M.D. Date: 0 08/29/2024 Generated for Jelly recio/Renetta/eTransmitting on: 0 11/08/2024 10:32 AM EDT
--- OUTSIDE RECORDS SUMMARY | 2024-09-26 07:45 | XMS_ITS ---
Author Organization The [facility] in [place] Address [address] [place] [address] Care Team Providers Care Inside Sales Director Name Role Phone Smiley NAZARIO, Fidel Primary Care Provider Unavailab Nina Griffin Unavailable [phone] REASON FOR VISIT MD Encounters Encounter Location Date Provider Diagnosis The [facility] [address] [place] [address] 09/26/2024 Nina River Plan Of Treatment Next Appt Details Provider Name:Nina River , 11/28/2024 11:15:00 AM, [address] [place] [address], [address], Provider Name:Raghavendra Martins, 06/13/2025 11:00:00 AM, [address] [place] [address], [address], Progress Notes * Ganga MIRANDA LDOB:1960 (64 yo M)Acc No.[id number]:09/26/2024 UNLOCKED PROGRESS NOTE Progress Notes Patient: Ganga LOPEZ Provider: Geoff River M.D. :1960 A ge:64 Y S ex:Male Date:09/26/2024 Address:[address] , [address], [place], [place] Pcp:Fidel Reis MD Subjective: * Chief Complaints: * 1 . MD. * Medical History: Objective: * Vitals: Assessment: Plan: * Treatment: * * Electronic signature of Humberto River MD, [id number] on 11/08/2024 at 10:32 AM EDT Sign off status: Pending Visit Status: Jerry MARTE (Voice) * Provider: Geoff River M.D. Date: 0 09/26/2024 Generated for Jelly recio/Renetta/eTransmitting on: 0 11/08/2024 10:32 AM EDT
--- OUTSIDE RECORDS SUMMARY | 2024-09-26 08:15 | XMS_ITS ---
Author Organization The [facility] in [place] Address [address] [place] [address] Care Team Providers Care Dispatcher Motor Vehicle Name Role Phone Fidel Reis MD Primary Care Provider Unavailab Nina Griffin Unavailable [phone] REASON FOR VISIT CL1.5 Encounters Encounter Location Date Provider Diagnosis [facility] Oncology [address] [place] [address] 09/26/2024 Nina River Plan Of Treatment Next Appt Details Provider Name:Nina River , 11/28/2024 11:15:00 AM, [address] [place] [address], [address], Provider Name:Raghavendra Martins, 06/13/2025 11:00:00 AM, [address] [place] [address], [address], Progress Notes * Ganga MIRANDA LDOB:1960 (64 yo M)Acc No.[id number]:09/26/2024 UNLOCKED PROGRESS NOTE Progress Note Patient: Sameer LOPEZcisco Evans Provider: Geoff River M.D. :1960 A ge:64 Y S ex:Male Date:09/26/2024 Address:[address] [facility], [place], [id number] Pcp:Fidel Reis MD Subjective: * Chief Complaints: * 1 . CL1.5. * Medical History: Objective: * Vitals: Assessment: Plan: * Treatment: * * Electronic signature of Humberto River MD, [id number] on 11/08/2024 at 10:32 AM EDT Sign off status: Pending Visit Status: P EN (Pending) * Provider: Geoff River M.D. Date: 09/26/2024 Generated for Jelly recio/Renetta/eTransmitting on: 11/08/2024 10:32 AM EDT
--- OUTSIDE RECORDS SUMMARY | 2024-11-08 10:32 | XMS_ITS | Encounter Summary ---
Author Organization [facility] Address [address] [place] [address] Care Team Providers Care Drum Plater Name Role Phone Fidel Reis MD Unavailable Fidel Reis MD Primary Care Provider [phone] Fidel Resi MD Unavailable Alvin Gonzalez MA Unavailable [phone] Encounter Details Date Type Department Care [...] often do you attend chur ch or taoist services? Patient declined 10/17/2023 Do you belong to any clubs o r organizations such as congregational groups, unions, fraternal or athletic groups, or [...] and heating? Not hard at all 10/17/2023 [facility] [place] of Occupat ional Health - Occupational Stress [...] any time in the past 12 m [facility], were you homeless or living in [...] Visit [facility] [address] [place] [address] Fidel Reis MD [address] [place] [address] documented as of this encounter Procedures Procedure Name Priority Date/Time Associated Diagnosis Comments SEGMENTAL BLOOD PRESSURE 03/06/2024 2:13 PM EST documented in this encounter Results * SEGMENTAL BLOOD PRESSURE (03/06/2024 2:13 PM EST) Anatomical Region Laterality Modality Radiographic Ashley ging 03/06/2024 2:13 PM EST Narrative 03/06/2024 2:16 [place] [address] Vein Report Signed Patient: JOEL MIRANDA MR#: [id number] : 1960 Acct:[id number] Age/Sex: 63 / M ADM Date: 03/06/24 Loc: VC Attending Dr: Jesus Bahena D.P.M. Ordering Physician: Jesus Bahena D.P.M. Date of Service: 03/06/24 Procedure(s): VC SEGMENTAL PRESSURES Accession Number(s): [id number] cc: Jesus Bahena D.P.M.; Fidel Reis M.D. The [address] [address] Patient Name: JOEL MIRANDA MRN: [id number] date: 1960 Sex: M Assigned Patient Location: VC Current Patient Location: VC Accession/Order Number: [id number] Exam Date: 03/06/2024 11:00 Report Date: 03/06/2024 [...] By: 03/06/24 1416 DD/ 12 TD/TT: Water Pump Installer: Procedure Note Radiology, Radiologist, MD - 03/06/2024 [place] [address] Vein Report Signed Patient: JOEL MIRANDA LMR#: [id number] : 1960cct:[id number] Age/Sex: 63 / MADM Date: 03/06/24 Loc: VC Attending Dr: Jesus Bahena D.P.M. Ordering Physician: Jesus Bahena D.P.M. Date of Service: 03/06/24 Procedure(s): VC SEGMENTAL PRESSURES Accession Number(s): [id number] cc: Jesus Bahena D.P.M.; Fidel Reis M.D. The [address] [address] Patient Name: JOEL MIRANDA MRN: [id number] date: 1960 Sex: M Assigned Patient Location: Current Patient Location: VC Accession/Order Number: [id number] Exam Date: 03/06/2024 11:00 Report Date: 03/06/2024 [...] Signed By:03/06/24 1416 DD/ 1413 TD/TT: Water Pump Installer: us Generic External Data Provider IMG XR PROCEDURES Final Result documented in this encounter Visit Diagnoses Not on filedocumented in this encounter Care Teams Drum Plater Relationship Specialty Start Date End Date Fidel Reis MD [address] [place] [address] PCP - [facility] 02/26/23 Fidel Reis MD [address] [place] [address] PCP - General Family Medicine 11/18/23 Fidel Reis MD [address] [place] [address] PCP - [facility] 05/05/24 08/29/24 Alvin Gonzalez MA [address] [place] [address] Family Medicine 08/08/24 08/15/24 documented as of this encounter
--- OUTSIDE RECORDS SUMMARY | 2024-11-08 10:32 | XMS_ITS | Encounter Summary ---
Author Organization [facility] Address [address] [place] [address] Care Team Providers Care It Applications Analyst Name Role Phone Fidel Reis MD Unavailable Fidel Reis MD Primary Care Provider [phone] Fidel Reis MD Unavailable Alvin Gonzalez MA Unavailable [phone] Reason for Visit * Reason Comments Med Refill Encounter Details Date Type Department Care Team (Late st Contact Info) Description 06/24/2024 [facility]ill [facility] [address] [place] [address] Fidel Reis MD [address] [place] [address] Benign hypertension ; Type 2 diabetes mellitus [...] often do you attend chur ch or lutheran services? Patient declined 10/17/2023 Do you belong to any clubs o r organizations such as denominational groups, unions, fraternal or athletic groups, or [...] and heating? Not hard at all 10/17/2023 [facility] of Occupat ional Health - Occupational [...] any time in the past 12 m [facility], were you homeless or living in a snf (including now)? No 10/17/2023 Sex and Gender Information Value Date Recorded Sex Assigned at Not on file Legal Sex Male 7:28 PM EDT Gender Identity Not on file Sexual Orientation Not on file documented as of this encounter Miscellaneous Notes * Telephone Encounter - AMRIK MEHTA - 06/26/2024 9:04 AM EDT MEDICATION SENT TO [facility] documented in this encounter Plan of Treatment Upcoming Encounters Date Type Department Care Team (Late st Contact Info) Description 02/01/2025 10:30 AM EST Office Visit [facility] [address] [place] [address] Fidel Reis MD [address] [place] [address] documented as of this encounter Visit Diagnoses Diagnosis Benign hypertension Essential hypertension, benign Type 2 diabetes mellitus with hyperglycemia, without long-term current use of insulin (HCC) documented in this encounter Care Teams It Applications Analyst Relationship Specialty Start Date End Date Fidel Reis MD [address] [place] [address] PCP - [facility] 02/26/23 Fidel Reis MD [address] [place] [address] PCP - General Family Medicine 11/18/23 Fidel Reis MD [address] [place] [address] PCP - [facility] 05/05/24 08/29/24 Alvin Gonzalez, AR [address] [place] [address] Family Medicine 08/08/24 08/15/24 documented as of this encounter
--- OUTSIDE RECORDS SUMMARY | 2024-11-08 10:32 | XMS_ITS | Encounter Summary ---
Author Organization [facility] Address [address] [place] [address] Care Team Providers Care Machine Hand Name Role Phone Fidel Reis MD Unavailable Fidel Reis MD Primary Care Provider [phone] Fidel Reis MD Unavailable Alvin Gonzalez MA Unavailable Encounter Details Date Type Department Care Team (Late st Contact Info) Description 02/15/2024 Orders Only [facility] [address] [place] [address] Ganga Corona MD [address], [place] [address] Social History Tobacco Use Types Packs/Day Years [...] How often do you attend chur or lutheran services? Patient declined 10/17/2023 Do you belong to any clubs o r organizations such as rastafari groups, unions, fraternal or athletic groups, or [...] and heating? Not hard at all 10/17/2023 [facility] of Occupat ional Health - [...] any time in the past 12 m [facility], were you homeless or living in [...] Visit [facility] [address] [place] [address] Fidel Reis MD [address] [place] [address] documented as of this encounter Procedures Procedure [...] on filedocumented in this encounter Care Teams Machine Hand Relationship Specialty Start Date End Date Fidel Reis MD [address] [place] [address] PCP - [employer] 02/26/23 Fidel Reis MD [address] [place] [address] PCP - General Family Medicine 11/18/23 iFdel Reis MD [address] [place] [address] PCP - [facility] 05/05/24 08/29/24 Alvin Gonzalez, MA [address] [place] [address] Family Medicine 08/08/24 08/15/24 documented as of this encounter
--- OUTSIDE RECORDS SUMMARY | 2024-11-08 10:32 | XMS_ITS | Encounter Summary ---
Author Organization [facility] Address [address] [place] [address] Care Team Providers Care Gum Cook Name Role Phone Fidel Reis MD Unavailable Fidel Reis MD Primary Care Provider [phone] Fidel Reis MD Unavailable Alvin Gonzalez MA Unavailable [phone] Encounter Details Date Type Department Care [...] often do you attend chur ch or anglican services? Patient declined 10/17/2023 Do you belong [...] and heating? Not hard at all 10/17/2023 [facility] [place] of Occupat ional Health - Occupational Stress [...] any time in the past 12 m [facility], were you homeless or living in a [...] Visit [facility] [address] [address] Fidel Reis MD [address] [place] [address] documented as of this encounter Procedures Procedure Name Priority Date/Time Associated Diagnosis Comments ECG 12-LEAD 03/10/2024 10:37 AM EST documented in this encounter Results * ECG 12-LEAD (03/10/2024 10:37 AM EST) Anatomical Region Laterality Modality Other 03/10/2024 10:3 7 AM EST Narrative 03/10/2024 5:24 PM EST [place] [id number] Electrocardiograph Report Signed Patient: JOEL MIRANDA MR#: [id number] : 1960 Acct:[id number] Age/Sex: 63 / M ADM Date: 03/10/24 Loc: PST Attending Dr: Jesus Bahena D.P.M. Ordering Physician: Jesus Bahena D.P.M. Date of Service: 03/10/24 Procedure(s): ECG 12 lead Accession Number(s): [id number] cc: [facility] Test Date: 2024-03-10 Pat Name: JOEL MIRANDA Department: Room: - Gender: Male Bundle Packer: : 1960 Requested By: JESUS BAHENA Order Number: [id number] Reading MD: AVELINO CASTANON Measurements Intervals [place] Rate: 53 P: 86 NM: 179 QRS: 8 QRSD: 110 T: 34 QT: 451 QTc: 425 Interpretive Statements SINUS BRADYCARDIA Compared to ECG 11/25/2022 10:12:24 Sinus rhythm no longer present Electronically Signed On 03-10-2024 17:24:37 EST by AVELINO CASTANON Dictated By: Avelino Castanon D.O. Signed By: 03/10/241723 DD/ 1037 TD/TT: Home Health Assistant: Procedure Note Radiology, Radiologist, MD - 03/10/2024 [facility] [place] [id number] Electrocardiograph Report Signed Patient: JOEL MIRANDA R#: [id number] : 1960cct:[id number] Age/Sex: 63 / MADM Date: 03/10/24 Loc: PST Attending Dr: Jesus Bahena D.P.M. Ordering Physician: Jesus Bahena D.P.M. Date of Service: 03/10/24 Procedure(s): ECG 12 lead Accession Number(s): [id number] cc: [facility] Test Date: 2024-03-10 Pat Name: JOEL MIRANDA Department: Room: - Gender: Male Bundle Packer: : 1960 Requested By: JESUS BAHENA Order Number: [id number] Reading MD: AVELINO CASTANON Measurements Intervals [place] Rate: 53 P: 86 NM: 179 QRS: 8 QRSD: 110 T: 34 QT: 451 QTc: 425 Interpretive Statements SINUS BRADYCARDIA Compared to ECG 11/25/2022 10:12:24 Sinus rhythm no longer present Electronically Signed On 03-10-2024 17:24:37 EST by AVELINO CASTANON Dictated By: Avelino Castanon D.O. Signed By:03/10/241723 DD/ 1037 TD/TT: Home Health Assistant: us Generic External Data Provider [facility] Final Result documented in this encounter Visit Diagnoses Not on filedocumented in this encounter Care Teams Gum Cook Relationship Specialty Start Date End Date Fidel Reis MD [address] [place] [address] PCP - [facility] 02/26/23 Fidel Reis MD [address] [place] [address] PCP - General Family Medicine 11/18/23 Fidel Reis MD [address] [place] [address] PCP - [facility] 05/05/24 08/29/24 Alvin Gonzalez, MA [address] [place] [address] Family Medicine 08/08/24 08/15/24 documented as of this encounter
--- OUTSIDE RECORDS SUMMARY | 2024-11-08 10:32 | XMS_ITS | Encounter Summary ---
Author Organization [facility] Address [address] [place] [address] Care Team Providers Care Biochemistry Specialist Name Role Phone Fidel Reis MD Unavailable Fidel Reis MD Primary Care Provider [phone] Fidel Reis MD Unavailable Alvin Gonzalez MA Unavailable [phone] Encounter Details Date Type Department Care Team (Late st Contact Info) Description 12/02/2023 Orders Only [facility] [address] [place] [address] Fidel Reis MD [address] [place] [address] Social History Tobacco Use Types Packs/Day Years [...] How often do you attend [facility] or restorationism services? Patient declined 10/17/2023 Do you belong [...] [facility] of Occupat ional [facility] - Occupational Stress Questionnaire Answer [...] any time in the past 12 m [facility], were you homeless or living [...] Office Visit [facility] [address] [place] [address] Fidel Reis MD [address] [place] [address] documented as of this encounter Visit Diagnoses Not on filedocumented in this encounter Care Teams Biochemistry Specialist Relationship Specialty Start Date End Date Fidel Reis MD [address] [place] [address] PCP - [employer] 02/26/23 Fidel Reis MD [address] [place] [address] PCP - General Family Medicine 11/18/23 Fidel Reis MD [address] [place] [address] PCP - ACO Reach 05/05/24 08/29/24 Alvin Gonzalez MA [address] [place] [address] Family Medicine 08/08/24 08/15/24 documented as of this encounter
--- OUTSIDE RECORDS SUMMARY | 2024-11-08 10:32 | XMS_ITS | Encounter Summary ---
Author Organization [facility] Address [address] [place] [address] Care Team Providers Care Ux Architect Name Role Phone Fidel Reis MD Unavailable Fidel Reis MD Primary Care Provider [phone] Fidel Reis MD Unavailable Alvin Gonzalez MA Unavailable [phone] Reason for Visit * Reason Comments Med Refill Encounter Details Date Type Department Care Team (Late st Contact Info) Description 07/01/2024 [facility] [address] [place] [address] Fidel Reis MD [address] [place] [address] Pruritus; Primary hypertension ; Dyslipidemia ; Type [...] often do you attend chur ch or rastafarian services? Patient declined 10/17/2023 Do you belong [...] and heating? Not hard at all 10/17/2023 [facility] of Occupat ional Health - [...] any time in the past 12 m [facility], were you homeless or living [...] 07/03/2024 1:05 PM EDT MEDICATION SENT TO [facility] documented in this encounter Plan of Treatment Upcoming Encounters Date Type Department Care Team (Late st Contact Info) Description 02/01/2025 10:30 AM EST Office Visit [facility] [address] [place] [address] Fidel Reis MD [address] [place] [address] documented as of this encounter Visit Diagnoses Diagnosis Pruritus Unspecified pruritic disorder Primary hypertension Unspecified essential hypertension Dyslipidemia Other and unspecified hyperlipidemia Type 2 diabetes mellitus with hyperglycemia, without long-term current use of insulin (HCC) documented in this encounter Care Teams Ux Architect Relationship Specialty Start Date End Date Fidel Reis MD [address] [place] [address] PCP - Jaron Ballard 02/26/23 Fidel Reis MD [address] [place] [address] PCP - General Family Medicine 11/18/23 Fidel Reis MD [address] [place] [address] PCP - ACO Reach 05/05/24 08/29/24 Alvin Gonzalez, REBEL [address] [place] [address] Family Medicine 08/08/24 08/15/24 documented as of this encounter
--- OUTSIDE RECORDS SUMMARY | 2024-11-08 10:32 | XMS_ITS | Encounter Summary ---
Author Organization [facility] Address [address] [place] [address] Care Team Providers Care Manager Relocation Name Role Phone Fidel Reis MD Unavailable Fidel Reis MD Primary Care Provider [phone] Fidel Reis MD Unavailable Alvin Gonzalez MA Unavailable [phone] Reason for Visit * Reason Comments Med Refill Encounter Details Date Type Department Care Team (Late st Contact Info) Description 06/17/2024 [facility] [address] [place] [address] Fidel Reis MD [address] [place] [address] Primary hypertension ; Dyslipidemia Social History Tobacco [...] week 10/17/2023 How often do you attend [facility] or worship services? Patient declined 10/17/2023 Do you belong [...] and heating? Not hard at all 10/17/2023 [facility] of Occupat ional Health - [...] 06/19/2024 8:25 AM EDT MEDICATION SENT TO [facility] documented in this encounter Plan of Treatment Upcoming Encounters Date Type Department Care Team (Late st Contact Info) Description 02/01/2025 10:30 AM EST Office Visit [facility] [address] [place] [address] Fidel Reis MD [address] [place] [address] documented as of this encounter Visit Diagnoses Diagnosis Primary hypertension Unspecified essential hypertension Dyslipidemia Other and unspecified hyperlipidemia documented in this encounter Care Teams Manager Relocation Relationship Specialty Start Date End Date Fidel Reis MD [address] [place] [address] PCP - [employer] 02/26/23 Fidel Reis MD [address] [place] [address] PCP - General Family Medicine 11/18/23 Fidel Reis MD [address] [place] [address] PCP - ACO Reach 05/05/24 08/29/24 Alvin Gonzalez, REBEL [address] [place] [address] Family Medicine 08/08/24 08/15/24 documented as of this encounter
--- OUTSIDE RECORDS SUMMARY | 2024-11-08 10:33 | XMS_ITS | Encounter Summary ---
Author Organization [facility] Address [address] [place] [address] Care Team Providers Care Campus Recruiter Name Role Phone Fidel Reis MD Unavailable Fidel Reis MD Primary Care Provider [phone] Fidel Reis MD Primary Care Provider [phone] Fidel Reis MD Primary Care Provider [phone] Fidel Reis MD Unavailable Alvin Gonzalez MA Unavailable [phone] Encounter Details Date Type Department Care Team (Late st Contact Info) Description 06/09/2023 Orders Only [facility] [address] [address] Fidel Reis MD [address] [place] [address] Social History Tobacco Use Types [...] 02/01/2025 10:30 AM EST Office Visit [facility] [address] [place] [address] Fidel Reis MD [address] [place] [address] documented as of this encounter Procedures Procedure [...] on filedocumented in this encounter Care Teams Campus Recruiter Relationship Specialty Start Date End Date Fidel Reis MD [address] [place] [address] PCP - [place] [employer] 02/26/23 Fidel Reis MD [address] [place] [address] PCP - General Family Medicine 05/12/23 08/29/23 Fidel Reis MD [address] [place] [place] [address] PCP - General Family Medicine 08/30/23 08/30/23 Fidel Reis MD [address] [place] [address] PCP - General Family Medicine 11/18/23 Fidel Reis MD [address] [place] [address] PCP - ACO Reach 05/05/24 08/29/24 Alvin Gonzalez MA [address] [place] [address] Family Medicine 08/08/24 08/15/24 documented as of this encounter
--- OUTSIDE RECORDS SUMMARY | 2024-11-08 10:33 | XMS_ITS | Encounter Summary ---
Author Organization [facility] Address [address] [place] [address] Care Team Providers Care Floor Surfacer Name Role Phone Fidel Reis MD Primary Care Provider [phone] Reason for Visit * Reason Onset Date Comments Med Refill 11/01/2024 Encounter Details Date Type Department Care Team (Late st Contact Info) Description 11/01/2024 Refill [facility] [address] [place] [address] Fidel Reis MD [address] [place] [address] Type 2 diabetes mellitus with hyperglycemia, without [...] week 10/17/2023 How often do you attend [facility] or alevism services? Patient declined 10/17/2023 Do you belong [...] and heating? Not hard at all 10/17/2023 [employer] of Occupat ional [facility] - Occupational Stress Questionnaire Answer Date [...] any time in the past 12 m [facility], were you homeless or living in a nursing home (including now)? No 10/17/2023 Sex and Gender Information Value Date Recorded Sex Assigned at Not on file Legal Sex Male 7:28 PM EDT Gender Identity Not on file Sexual Orientation Not on file documented as of this encounter Plan of Treatment Upcoming Encounters Date Type Department Care Team (Late st Contact Info) Description 02/01/2025 10:30 AM EST [facility] [address] [place] [address] Fidel Reis MD [address] [place] [address] documented as of this encounter Visit Diagnoses Diagnosis Type 2 diabetes mellitus with hyperglycemia, without long-term current use of insulin (HCC) documented in this encounter Care Teams Floor Surfacer Relationship Specialty Start Date End Date Fidel Reis MD [address] [place] [address] PCP - General Family Medicine 11/18/23 documented as of this encounter
--- OUTSIDE RECORDS SUMMARY | 2024-11-08 10:33 | XMS_ITS | Encounter Summary ---
Author Organization [facility] Address [address] [place] [address] Care Team Providers Care Sliver Former Name Role Phone Fidel Reis MD Unavailable Fidel Reis MD Primary Care Provider [phone] Fidel Reis MD Primary Care Provider [phone] Fidel Reis MD Primary Care Provider [phone] Fidel Reis MD Unavailable Alvin Gonzalez MA Unavailable [phone] Encounter Details Date Type Department Care Team (Late st Contact Info) Description 07/23/2023 Orders Only [facility] [address] [place] [address] Fidel Reis MD [address] [place] [address] Social History Tobacco Use Types [...] 02/01/2025 10:30 AM EST Office Visit [facility] [address] [place] [address] Fidel Reis MD [address] [place] [address] documented as of this encounter Procedures Procedure Name Priority Date/Time Associated Diagnosis Comments SCANNED LABS Routine 07/23/2023 8:27 AM EDT documented in this encounter Results * SCANNED LABS (07/23/2023 8:27 AM EDT) Fidel Reis MD LAB CHG PERFORMABLES Final Resul t documented in this encounter Visit Diagnoses Not on filedocumented in this encounter Care Teams Sliver Former Relationship Specialty Start Date End Date Fidel Reis MD [address] [place] [address] [facility] 02/26/23 Fidel Reis MD [address] [place] [address] PCP - General Family Medicine 05/12/23 08/29/23 Fidel Reis MD [address] [place] [address] PCP - General Family Medicine 08/30/23 08/30/23 Fidel Reis MD [address] [place] [address] PCP - General Family Medicine 11/18/23 Fidel Reis MD [address] [place] [address] PCP - ACO Reach 05/05/24 08/29/24 Alvin Gonzalez, REBEL [address] [place] [address] Family Medicine 08/08/24 08/15/24 documented as of this encounter
--- OUTSIDE RECORDS SUMMARY | 2024-11-08 10:33 | XMS_ITS | Encounter Summary ---
Author Organization [facility] Address [address] [place] [address] Care Team Providers Care World Designer Name Role Phone Fidel Reis MD Primary Care Provider [phone] Fidel Reis MD Unavailable Fidel Reis MD Primary Care Provider [phone] Fidel Reis MD Primary Care Provider [phone] Fidel Reis MD Primary Care Provider [phone] Fidel Reis MD Unavailable Alvin Gonzalez MA Unavailable [phone] Encounter Details Date Type Department Care Team (Late st Contact Info) Description 02/10/2023 External Result Encounter [facility] External Department Unsolicited Jonathan Bah DPM [facility] [facility] [address] [place] [address] Social History Tobacco Use Types [...] 02/01/2025 10:30 AM EST Office Visit [facility] [address] [place] [address] Fidel Reis MD [address] [place] [address] documented as of this encounter Procedures Procedure Name Priority Date/Time Associated Diagnosis Comments XR FOOT 1-2 VIEWS LEFT 02/10/2023 9:34 PM EST documented in this encounter Results * XR foot 1 or 2 views left (02/10/2023 9:34 PM EST) Anatomical Region Laterality Modality Lower Extremities, Foot Left [facility] 02/10/2023 9:34 PM EST Impressions 02/11/2023 8:00 AM EST 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 There is diffuse soft tissue swelling with subcutaneous emphysema consistent with the immediate postoperative state. Impression dictated by: Canelo Red M.D.02/10/2023 9:36 PM Dictation Location: [facility]- Transcribed By: [facility] 02/10/232135 Dictated By: Canelo Red II, MD 02/10/232133 Signed By: <Electronically signed by Canelo Red II, MD in OV> 02/10/232135 Narrative 02/11/2023 8:00 AM EST [facility] [place] [address] XRay Report Signed Patient: Ganga Miranda MR#: [id number] : 1960 Acct:[id number] Age/Sex: 62 / M ADM Date: 02/06/23 Loc: Room: [address] [place] [address] Type: ADM IN Attending Dr: Suzy Douglas [...] 2V Procedure Note Radiology, Radiologist, - 02/11/2023 [facility] Main [place] [address] [place] [address] XRay Report Signed Patient: Ganga Miranda LMR#: [id number] : 2Acct:[id number] Age/Sex: 62 / MADM Date: 02/06/23 Loc: Room: [id number]: ADM IN Attending Dr: Suzy Douglas MD [...] M.D.02/10/2023 9:36 PM Dictation Location: [place] [address] Transcribed By: [facility] 02/10/232135 Dictated By: Canelo Red II, MD 02/10/232133 Signed By: <Electronically signed by Canelo Red II, MD inOV> 02/10/232135 us Jonathan A Brown DPM IMG XR PROCEDURES Final Res ult documented in this encounter Visit Diagnoses Not on filedocumented in this encounter Care Teams World Designer Relationship Specialty Start Date End Date Fidel Reis MD PCP - General Family Medicine 12/10/22 05/11/23 Fidel Reis MD [address] [place] [address] PCP - [facility] 02/26/23 Fidel Reis MD [address] [place] [address] PCP - General Family Medicine 05/12/23 08/29/23 Fidel Reis MD [address] [place] [address] PCP - General Family Medicine 08/30/23 08/30/23 Fidel Reis MD [address] [place] [address] PCP - General Family Medicine 11/18/23 Fidel Reis MD [address] [place] [address] PCP - ACO Reach 05/05/24 08/29/24 Alvin Gonzalez MA [address] [place] [address] Family Medicine 08/08/24 08/15/24 documented as of this encounter
--- OUTSIDE RECORDS SUMMARY | 2024-11-08 10:33 | XMS_ITS | Encounter Summary ---
Author Organization [facility] Address [address] [place] [address] Care Team Providers Care Vial Gauger Name Role Phone Fidel Reis MD Primary Care Provider [phone] Fidel Reis MD Unavailable Fidel Reis MD Primary Care Provider [phone] Fidel Reis MD Primary Care Provider [phone] Fidel Reis MD Primary Care Provider [phone] Fidel Reis MD Unavailable Alvin Gonzalez MA Unavailable [phone] Encounter Details Date Type Department Care Team (Late st Contact Info) Description 02/09/2023 External Result Encounter [facility] External Department Unsolicited Jonathan Bah DPM [address] [facility] 5 [place] [address] Social History Tobacco Use Types [...] Visit [facility] [address] [place] [address] Fidel Reis MD [address] [place] [address] documented as of this encounter Procedures Procedure Name Priority Date/Time Associated Diagnosis Comments [facility] US PVR/SEGMENTAL PRESSURES LOWER 02/09/2023 12:17 PM EST documented in this encounter Results * [facility] US PVR/SEGMENTAL PRESSURES LOWER (02/09/2023 12:17 PM EST) Anatomical Region Laterality Modality Right Ultrasound 02/09/2023 12:1 7 PM EST Impressions 02/09/2023 12:38 PM EST 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 THE PATIENT IS MOST LIKELY TO HAVE diffuse DISEASE OF THE LEFT LOWER EXTREMITY. Impression dictated by: Camden Navarro MD02/09/2023 12:18 PM Dictation Location: [place] [address] Tech: Conipreeti Saenz Transcribed By: [facility] 02/09/23 1218 Dictated By: Camden Navarro MD 02/09/23 1217 Signed By: <Electronically signed by Camden Navarro MD in OV> 02/09/23 1218 Narrative 02/09/2023 12:38 PM EST [facility] [place] [address] Ultrasound Report Signed Patient: Ganga Miranda MR#: [id number] : 1960 Acct:[id number] Age/Sex: 62 / M ADM Date: 02/06/23 Loc: Room: [address] [place] [address] Type: ADM IN Attending Dr: Suzy Douglas [...] Procedure Note Camden Navarro MD - 02/09/2023 [facility] Main [place] [address] [place] [address] Ultrasound Report Signed Patient: Ganga Miranda LMR#: [id number] : 2Acct:[id number] Age/Sex: 62 / MADM Date: 02/06/23 Loc: Room: [id number]: ADM IN Attending Dr: Suzy Douglas MD [...] Camden Navarro MD02/09/2023 12:18 PM Dictation Location: [facility] Tech: Coni Saenz Transcribed By: MARYANN 02/09/23 1218 Dictated By: Camden Navarro MD 02/09/237 Signed By: <Electronically signed by Camden Navarro MD inOV> 02/09/23 1218 us Jonathan Bah DPM IMG US PROCEDURES Final Res ult documented in this encounter Visit Diagnoses Not on filedocumented in this encounter Care Teams Vial Gauger Relationship Specialty Start Date End Date Fidel Reis MD PCP - General Family Medicine 12/10/22 05/11/23 Fidel Reis MD [address] [place] [address] PCP - [facility] 02/26/23 Fidel Reis MD [address] [place] [address] PCP - General Family Medicine 05/12/23 08/29/23 Fidel Reis MD [address] [place] [address] PCP - General Family Medicine 08/30/23 08/30/23 Fidel Reis MD [address] [place] [address] PCP - General Family Medicine 11/18/23 Fidel Reis MD [address] [place] [address] PCP - [facility] Re[facility] 05/05/24 08/29/24 Alvin Gonzalez, REBEL [address] [place] [address] Family Medicine 08/08/24 08/15/24 documented as of this encounter
--- OUTSIDE RECORDS SUMMARY | 2024-11-08 10:33 | XMS_ITS | Encounter Summary ---
Author Organization [facility] Address [address] [place] [address] Care Team Providers Care Machinist Supervisor Outside Name Role Phone Fidel Reis MD Primary Care Provider [phone] Fidel Reis MD Unavailable Fidel Reis MD Primary Care Provider [phone] Fidel Reis MD Primary Care Provider [phone] Fidel Reis MD Primary Care Provider [phone] Fidel Reis MD Unavailable Alvin Gonzalez MA Unavailable [phone] Encounter Details Date Type Department Care Team (Late st Contact Info) Description 09/08/2022 Abstract [facility] [address] [address] Klaus Brar MD [address] [address] Social History Tobacco Use Types [...] 02/01/2025 10:30 AM EST [facility] [address] [place] [address] Fidel Reis MD [address] [place] [address] documented as of this encounter Visit Diagnoses Not on filedocumented in this encounter Care Teams Machinist Supervisor Outside Relationship Specialty Start Date End Date Fidel Reis MD PCP - General Family Medicine 12/10/22 05/11/23 Fidel Reis MD [address] [place] [address] PCP - [facility] 02/26/23 Fidel Reis MD [address] [place] [address] PCP - General Family Medicine 05/12/23 08/29/23 Fidel Reis MD [address] [place] [address] PCP - General Family Medicine 08/30/23 08/30/23 Fidel Reis MD [address] [place] [address] PCP - General Family Medicine 11/18/23 Fidel Reis MD [address] [place] [address] PCP - [facility] Re[employer] 05/05/24 08/29/24 Alvin Gonzalez, REBEL [address] [place] [address] Family Medicine 08/08/24 08/15/24 documented as of this encounter
--- OUTSIDE RECORDS SUMMARY | 2024-11-08 10:33 | XMS_ITS | Encounter Summary ---
Author Organization [facility] Address [address] [place] [address] Care Team Providers Care Manufacturing Support Engineer Name Role Phone Fidel Reis MD Primary Care Provider [phone] Fidel Reis MD Unavailable Alvin Gonzalez MA Unavailable [phone] Encounter Details Date Type Department Care Team (Late st Contact Info) Description 08/10/2024 Results Follow-Up [facility] [address] [place] [address] Fidel Reis MD [address] [place] [address] Social History Tobacco Use Types [...] 10/17/2023 How often do you attend [facility] or baptism services? Patient declined 10/17/2023 Do you belong [...] all 10/17/2023 [facility] - Occupational Stress Questionnaire Answer Date [...] were you homeless or living in a chcf (including now)? No 10/17/2023 Sex and Gender [...] Office Visit [facility] [address] [place] [address] Fidel Reis MD [address] [place] [address] documented as of this encounter Visit Diagnoses Not on filedocumented in this encounter Care Teams Manufacturing Support Engineer Relationship Specialty Start Date End Date Fidel Reis MD [address] [place] [address] PCP - General Family Medicine 11/18/23 Fidel Reis MD [address] [place] [address] PCP - [facility] 05/05/24 08/29/24 Alvin Gonzalez MA [address] [place] [address] Family Medicine 08/08/24 08/15/24 documented as of this encounter
--- OUTSIDE RECORDS SUMMARY | 2024-11-08 10:33 | XMS_ITS | Encounter Summary ---
Author Organization [facility] Address [address] [place] [address] Care Team Providers Care Sledger Name Role Phone Fidel Reis MD Unavailable Fidel Reis MD Primary Care Provider [phone] Fidel Reis MD Primary Care Provider [phone] Fidel Reis MD Primary Care Provider [phone] Fidel Reis MD Unavailable Alvin Gonzalez MA Unavailable [phone] Encounter Details Date Type Department Care Team (Late Contact Info) Description 06/08/2023 Orders Only [facility] [address] [place] [address] Jonathan Bah, DPM [address] [address] Social History Tobacco Use Types [...] [facility] [address] [place] [address] Fidel Reis MD [address] [place] [address] documented as of this encounter Procedures Procedure Name Priority Date/Time Associated Diagnosis Comments SCANNED LABS Routine 06/08/2023 2:20 PM EDT documented in this encounter Results * SCANNED LABS (06/08/2023 2:20 PM EDT) Jonathan Bah DPM LAB CHG PERFORMABLES Final Result documented in this encounter Visit Diagnoses Not on filedocumented in this encounter Care Teams Sledger Relationship Specialty Start Date End Date Fidel Reis MD [address] [place] [address] PCP - [facility] 02/26/23 Fidel Reis MD [address] [place] [address] PCP - General Family Medicine 05/12/23 08/29/23 Fidel Reis MD [address] [place] [address] PCP - General Family Medicine 08/30/23 08/30/23 Fidel Reis MD [address] [place] [address] PCP - General Family Medicine 11/18/23 Fidel Reis MD [address] [place] [address] PCP - [facility] 05/05/24 08/29/24 Alvin Gonzalez, REBEL [address] [place] [address] Family Medicine 08/08/24 08/15/24 documented as of this encounter
--- OUTSIDE RECORDS SUMMARY | 2024-11-08 10:33 | XMS_ITS | Encounter Summary ---
Author Organization [facility] Address [address] [place] [address] Care Team Providers Care Personal Injury Legal Assistant Name Role Phone Fidel Reis MD Primary Care Provider [phone] Fidel Reis MD Unavailable Fidel Reis MD Primary Care Provider [phone] Fidel Reis MD Primary Care Provider [phone] Fidel Reis MD Primary Care Provider [phone] Fidel Reis MD Unavailable Alvin Gonzalez MA Unavailable [phone] Encounter Details Date Type Department Care Team (Late st Contact Info) Description 02/08/2023 External Result Encounter [facility] External Department Unsolicited Jonathan Bah DPM [address] [facility] [address] [place] [address] Social History Tobacco Use Types [...] Visit [facility] [address] [place] [address] Fidel Reis MD [address] [place] [address] documented as of this encounter Procedures Procedure [...] Canelo Red M.D.02/08/2023 2:39 PM Dictation Location: [place] [address] Transcribed By: [facility] 02/08/23 143 Dictated By: Canelo Red II, MD 02/08/23 142 Signed By: <Electronically signed by Canelo Red II, MD in OV> 02/08/23 1439 Narrative 02/09/2023 7:59 AM EST [place] [address] MRI Report Signed Patient: Ganga Miranda MR#: [id number] : 1960 Acct:[id number] Age/Sex: 62 / M ADM Date: 02/06/23 Loc: Room: [address] [place] [address] Type: ADM IN Attending Dr: Suzy Douglas [...] con Procedure Note Radiology, Radiologist, - 02/09/2023 [facility] [place] [address] [place] [address] MRI Report Signed Patient: Ganga Miranda LMR#: [id number] : 1960cct:[id number] Age/Sex: 62 / MADM Date: 02/06/23 Loc: Room: [id number]: ADM IN Attending Dr: Suzy Douglas MD [...] Canelo Red M.D.02/08/2023 2:39 PM Dictation Location: [place] [address] Transcribed By: [facility] 02/08/23 1439 Dictated By: Canelo Red II, MD 02/08/23 142 Signed By: <Electronically signed by Canelo Red II, MD inOV> 02/08/23 143 Jonathan Bah DPM IMG MRI PROCEDURES Final Re sult documented in this encounter Visit Diagnoses Not on filedocumented in this encounter Care Teams Personal Injury Legal Assistant Relationship Specialty Start Date End Date Fidel Reis MD PCP - General Family Medicine 12/10/22 05/11/23 Fidel Reis MD [address] [place] [address] PCP - [facility] 02/26/23 Fidel Reis MD [address] [place] [address] PCP - General Family Medicine 05/12/23 08/29/23 Fidel Reis MD [address] [place] [address] PCP - General Family Medicine 08/30/23 08/30/23 Fidel Reis MD [address] [place] [address] PCP - General Family Medicine 11/18/23 Fidel Reis MD [address] [place] [address] PCP - [facility] 05/05/24 08/29/24 Alvin Gonzalez, REBEL [address] [place] [address] Family Medicine 08/08/24 08/15/24 documented as of this encounter
--- OUTSIDE RECORDS SUMMARY | 2024-11-08 10:33 | XMS_ITS | Encounter Summary ---
Author Organization [facility] Address [address] [place] [address] Care Team Providers Care Punch Finisher Name Role Phone Fidel Reis MD Unavailable Fidel Reis MD Primary Care Provider [phone] Fidel Reis MD Primary Care Provider [phone] Fidel Reis MD Primary Care Provider [phone] Fidel Reis MD Unavailable Alvin Gonzalez MA Unavailable [phone] Encounter Details Date Type Department Care Team (Late st Contact Info) Description 06/07/2023 Abstract [facility] [address] [place] [address] Jonathan Bah DPM [address] [address] Social History Tobacco Use Types [...] 02/01/2025 10:30 AM EST Office Visit [facility] [address] [place] [phone] Fidel Reis MD [address] [place] [address] documented as of this encounter Visit Diagnoses Not on filedocumented in this encounter Care Teams Punch Finisher Relationship Specialty Start Date End Date Fidel Reis MD [address] [place] [address] PCP - [facility] 02/26/23 Fidel Reis MD [address] [place] [address] PCP - General Family Medicine 05/12/23 08/29/23 Fidel Reis MD [address] [place] [address] PCP - General Family Medicine 08/30/23 08/30/23 Fidel Reis MD [address] [place] [address] PCP - General Family Medicine 11/18/23 Fidel Reis MD [address] [place] [address] PCP - [facility] 05/05/24 08/29/24 Alvin Gonzalez MA [address] [place] [address] Family Medicine 08/08/24 08/15/24 documented as of this encounter
--- OUTSIDE RECORDS SUMMARY | 2024-11-08 10:33 | XMS_ITS | Clinical Summary ---
Author Organization [employer] Address [id number] [address] [place] [address] Care Team Providers Care Merchandise Clerk Name Role Phone Fidel Reis MD Primary Care Provider [phone] Allergies Active Allergy Reactions Criticality Noted Date [...] Date Last Done Comments Depression Screening 1973 DTaP,Tdap and Td Vaccines (1 - Tdap) 1980 Zoster (Shingles) Vaccine (1 of 2) 07/08/2011 Adult BMI Screening 10/10/2024 10/11/2023 Tobacco Screening 10/10/2024 10/11/2023 Influenza Vaccine 11/27/2024 02/11/2023, , 01/01/2015, Additional history exists Medical Devices Not on file Insurance MEDICARE ANTHEM Member Subscriber Plan / Payer (Ef fective 2022-Present) Name:Ganga Miranda Relation to Subscriber:Unknown Name:Jaelyn Miranda Date of :1960 Address: [facility] [address] [place] [address] Payer ID:[id number] (NAIC) Type:Not on file Address: [place] [phone] MEDICARE ANTHEM Member Subscriber Plan / Payer (Ef fective 2022-Present) Name:Ganga Miranda Cristina Relation to Subscriber:Unknown Name:Jaelyn Miranda Date of :1960 Address: [facility] [address] [place] [address] Payer ID:[id number] (NAIC) Type:Not on file Address: [place] [phone] Care Teams Merchandise Clerk Relationship Specialty Start Date End Date Fidel Reis MD PCP - General 12/28/16
--- OUTSIDE RECORDS SUMMARY | 2024-11-08 10:33 | XMS_ITS | Clinical Summary ---
Author Organization [facility] Address [address] [place] [address] Care Team Providers Care Gear Straightener Name Role Phone Fidel Reis MD Primary Care Provider [phone] Allergies Active Allergy Reactions Criticality Noted Date Comments Omadacycline 02/23/2023 Other Reaction(s): Kidney pain Vancomycin Other,Unknown 06/21/2015 NEPHROTOXICITY States had kidney issues after taking Medications oxybutynin XL (Ditropan-XL) 15 MG 24 hr tabletIndication s:Incontinence overflow, urine Take 1 tablet (15 mg) by mouth Daily 30 tablet 11 05/01/19 25 026 Active atenolol (Tenormin) 100 MG tabletIndication s:Benign [...] FOR ITCHING 30 tablet 09/23/19 25 Active amLODIPine (Norvasc) 10 MG tabletIndication s:Primary hypertension Take 1 tablet by mouth once daily 30 tablet 10/24/19 25 Active atorvastatin (Lipitor) 40 MG tabletIndication s:Dyslipidemia TAKE 1 TABLET BY MOUTH IN THE MORNING 30 tablet 10/24/19 25 Active Januvia 100 MG tabletIndication s:Type 2 diabetes mellitus with hyperglycemia, without long-term current use of insulin (HCC) Take 1 tablet by mouth once daily 30 tablet 10/24/19 25 Active lisinopril 20 MG tabletIndication s:Benign hypertension Take 1 tablet by mouth once daily 30 tablet 10/24/19 25 Active glipiZIDE (Glucotrol) 10 MG tabletIndication s:Type 2 diabetes mellitus with hyperglycemia, without long-term current use of insulin (HCC) Take 1 tablet (10 mg) by mouth in the morning and 1 tablet (10 mg) in the evening. Take before meals. 180 tablet 3 11/03/19 25 Active glipiZIDE (Glucotrol) 10 MG tabletIndication s:Type 2 diabetes mellitus with hyperglycemia, without long-term current use of insulin (HCC) TAKE 1 TABLET BY MOUTH TWICE DAILY (MORNING AND BEDTIME) 60 tablet 07/04/19 25 025 Discontinued(Re order) amLODIPine (Norvasc) 10 MG tabletIndication s:Primary hypertension Take 1 tablet by mouth once daily 30 tablet 08/15/19 25 025 Discontinued atorvastatin (Lipitor) 40 MG tabletIndication s:Dyslipidemia TAKE 1 TABLET BY MOUTH IN THE MORNING 30 tablet 08/15/19 25 025 Discontinued Januvia 100 MG tabletIndication s:Type 2 diabetes mellitus with hyperglycemia, without long-term current use of insulin (HCC) Take 1 tablet by mouth once daily 30 tablet 08/29/19 25 025 Discontinued lisinopril 20 MG tabletIndication s:Benign hypertension Take 1 tablet by mouth once daily 30 tablet 08/29/19 25 025 Discontinued Active Problems Problem Noted [...] Encounters Date Type Department Care Team Description 11/01/2024 Refill [facility] [address] [place] [place] [address] Fidel Reis MD Type 2 diabetes mellitus with hyperglycemia, without long-term current use of insulin (HCC) 10/21/2024 Refill [facility] [address] [place] [address] Fidel Reis MD Primary hypertension ; Dyslipidemia ; Type 2 diabetes mellitus with hyperglycemia, without long-term current use of insulin (HCC); Benign hypertension 10/05/2024 Orders Only [facility] [address] [address] Klaus rBar MD 10/02/2024 External Result Encounter [facility] External Department Unsolicited Klaus Brar MD 10/02/2024 External Result Encounter [facility] External Department Unsolicited Klaus Brar MD 10/02/2024 External Result Encounter [facility] External Department Unsolicited Klaus Brar MD 09/26/2024 Clinisync Result Encounter [facility] External Department Unsolicited Provider, Generic External Data 09/22/2024 Refill [facility] [address] [place] [address] Fidel Reis MD Pruritus 09/11/2024 Clinisync Result Encounter [facility]S External Department Unsolicited Provider, Generic External Data 08/27/2024 Refill [facility] [address] [place] [address] Fidel Reis MD Benign hypertension ; Major depressive disorder, recurrent episode, mild ; Type 2 diabetes mellitus with hyperglycemia, without long-term current use of insulin (HCC) 08/15/2024 Patient Outreach [facility] [address] [place] [address] Alvin Gonzalez MA 08/15/2024 Telephone [facility] [address] [place] [address] Ivis Ricci MA reschedule surrgery 08/13/2024 Refill [facility] [address] [place] [address] Fidel Reis MD Primary hypertension ; Dyslipidemia 08/10/2024 Results Follow-Up [facility] [address] [place] [address] Fidel Reis MD 08/10/2024 Clinisync Result Encounter [facility] External Department Unsolicited Provider, Generic External Data from Last 3 Months Social History Tobacco [...] How often do you attend chur or cheondoism services? Patient declined 10/17/2023 Do you belong to any clubs o r organizations such as buddhist groups, unions, fraternal or athletic groups, or [...] and heating? Not hard at all 10/17/2023 [facility] - Occupational [...] time in the past 12 m [facility], were you homeless or living in a fpc (including now)? No 10/17/2023 Sex and Gender [...] EST Office Visit [facility] [address] [place] [address] Fidel Reis MD [address] [place] [address] Health Maintenance Due Date Last Done Comments CT Colonography 1960 FIT-DNA 1960 FIT 1960 Sigmoidoscopy 1960 Diabetes: Retinopathy Screening 07/08/1971 Diabetes: Urine Protein Screening 04/24/2016 016 Diabetes: Hemoglobin A1C 10/06/2022 2022, 03/29 FOBT 06/26/2023 06/25/2022 Influenza Vaccine (#1) 2024 , 04/10/2017, 01/01/2015, Additional history exists Colonoscopy 06/26/2032 [...] AM EDT [facility] CMP (CMP) (FOR REMOTE [facility] USE) Routine 09/26/2024 11:39 AM EDT ALL [...] PROFILE (FASTING) Routine 08/10/2024 11:00 AM EDT HP LIVER PANEL Routine 08/10/2024 11:0 0 AM EDT ALL BASIC METABOLIC PANEL Routine 08/10/2024 11:00 AM EDT ALL CBC WITH AUTO DIFF Routine 08/10/2024 11:00 AM EDT from Last 3 Months Results * GENERAL PATHOLOGY (10/02/2024 2:14 PM EDT) us Klaus Edwards MD [facility] Final Result * GLUCOSE POCT GLUCOMETERS (10/02/2024 1:03 PM EDT) Only the most recent of2 resultswithin the time period is included. [facility] GLUCOSE POC GLUCOMETERS 74 mg/dL 10/02/2024 1:21 PM EDT [facility] Comment: Random Glucose Reference Range is dependent on time and content of last meal. Glucose of more than 200 mg/dL in a nonstressed, ambulatory subject supports the diagnosis of Diabetes Mellitus. Blood (Blood) 10/02/2024 1:0 3 PM EDT 10/02/2024 1:20 PM EDT us Klaus Edwards MD LAB BLOOD ORDERABLES Final R esult [facility] [address] [place] [address], * (ABNORMAL) AEROBIC RENAN CHARGE ([id number]) (10/02/2024 12:38 PM EDT) [facility] AMIKACIN <16(S) 10/07/2024 9:27 AM EDT [facility] AZTREONAM <4(I) 10/07/2024 9:27 AM EDT [facility] CEFEPIME <2(S) 10/07/2024 9:27 AM EDT [facility] CEFTAZIDIME 4(I) 10/07/2024 9:27 AM EDT [facility] CEFTAZIDIME/AVIBA CTAM <4(S) 10/07/2024 9:27 AM EDT [facility] CEFTOLOZANE/TAZOB ACTAM <2(S) 10/07/2024 9:27 AM EDT [facility] CIPROFLOXACIN <0.25(S) 10/07/2024 9:27 AM EDT [facility] GENTAMICIN <2(S) 10/07/2024 9:27 AM EDT [facility] LEVOFLOXACIN <0.5(S) 10/07/2024 9:27 AM EDT [facility] MEROPENEM <1(S) 10/07/2024 9:27 AM EDT [facility] PIPERACILLIN/TAZO BACTAM <8(I) 10/07/2024 9:27 AM EDT [facility] TOBRAMYCIN <2(S) 10/07/2024 9:27 AM EDT [facility] Other Left hip region structure / Unknown 10/02/2024 12:38 PM EDT 10/02/2024 1:17 PM EDT Comment:Tissue Klaus Edwards MD [facility] Final Result Performing Organization Address City/State/[facility] Co de Phone Number [facility] [address] [place] [address], [facility] [address] [place] [address] * ANAEROBIC CULTURE (10/02/2024 12:38 PM EDT) [facility] Prevotella disiens 10/07/2024 9:31 AM EDT [facility] QUANTITY OF GROWTH Heavy Growth 10/07/2024 9:31 AM EDT [facility] Comment: Please contact Microbiology within 7 days if anaerobic susceptibilities are needed. Other Left hip region structure / Unknown 10/02/2024 12:38 PM EDT 10/02/2024 1:17 PM EDT Comment:Tissue Narrative [facility] - 10/07/2024 9:31 AM EDT Comment Left Hip Tissue Culture Klaus Edwards MD LAB BLOOD ORDERABLES Final R esult Performing Organization Address [facility] Co de Phone Number [facility] [address] [place] [address], [facility] [address] [place] [address] * AEROBIC CULTURE (10/02/2024 12:38 PM EDT) [facility] Strep dysgalactiae 10/07/2024 9:27 AM EDT [facility] COMMENTS Organism Not Routinely Tested for Susceptibilities 10/07/2024 9:27 AM EDT [facility] QUANTITY OF GROWTH Moderate Growth 10/07/2024 9:27 AM EDT [facility] Corynebacterium striatum group 10/07/2024 9:27 AM EDT [facility] COMMENTS Organism Not Routinely Tested for Susceptibilities 10/07/2024 9:27 AM EDT [facility] QUANTITY OF GROWTH Light Growth 10/07/2024 9:27 AM EDT [facility] Pseudomonas aeruginosa 10/07/2024 9:27 AM EDT [facility] QUANTITY OF GROWTH Rare Growth 10/07/2024 9:27 AM EDT [facility] Other Left hip region structure / Unknown 10/02/2024 12:38 PM EDT 10/02/2024 1:17 PM EDT Comment:Tissue Narrative [facility] - 10/07/2024 9:31 AM EDT Comment Left Hip Tissue Culture Klaus Edwards MD LAB BLOOD ORDERABLES Final R esult Performing Organization Address City/[facility]/ZIP Co de Phone Number [facility] [address] [place] [address], [facility] [address] [place] [address] * Gram stain (10/02/2024 12:38 PM EDT) GRAM STAIN No White Blood Cells Seen 10/03/2024 2:05 PM EDT [facility] GRAM STAIN No Bacteria Seen 10/03/2024 2:05 PM EDT [facility] Other Left hip region structure / Unknown 10/02/2024 12:38 PM EDT 10/02/2024 1:17 PM EDT Comment:Tissue Narrative [facility] - 10/07/2024 9:31 AM EDT Comment Left Hip Tissue Culture Klaus Edwards MD LAB MICROBIOLOGY - GENERAL O RDERABLES Final Result [facility] [address] [place] [address], [facility] [address] [place] [address] * (ABNORMAL) [facility] CMP (CMP) (FOR REMOTE [facility] USE) (09/26/2024 11:39 AM EDT) SODIUM 139 136 - 145 mmol/L [facility] POTASSIUM 4.0 3.5 - 5.1 mmol/L [facility] CHLORIDE 106 98 - 107 mmol/L [facility] CARBON DIOXIDE 24.0 21.0 - 32.0 mmol/L [facility] ANION GAP 13.0 [facility] GLUCOSE 204(H) 74 - 106 mg/dL [facility] BLOOD UREA NITROGEN 34.0(H) 7.0 - 18.0 mg/dL [facility] CREATININE 1.78(H) 0.70 - 1.30 mg/dL TBH TBH EGFR-AF CZECH 47(L) >=60 mL/min/1. 73m 2 TBH TBH EGFR-NON AF CZECH 39(L) >=60 mL/min/1. 73m 2 TBH BUN CREATININE RATIO 19.1 TBH CALCIUM 8.7 8.5 - 10.1 mg/dL [facility] BILIRUBIN TOTAL 0.2 0.2 - 1.0 mg/dL TBH ASPARTATE AMINO TRANSFERASE 11(L) 15 - 37 U/L TBH ALANINE AMINOTRANSFERASE 11(L) 16 - 63 U/L TBH ALKALINE PHOSPHATASE 128(H) 46 - 116 U/L TBH TOTAL PROTEIN 7.8 6.4 - 8.2 g/dL [facility] ALBUMIN LEVEL 1.7(L) 3.4 - 5.0 g/dL [facility] GLOBULIN 6.1 g/dL TBH ALBUMIN GLOBULIN RATIO 0.3 TBH 09/26/2024 11:3 9 AM EDT 09/26/2024 11:49 AM EDT Narrative GARY - 09/26/2024 12:17 PM EDT us Generic External Data Provider [facility] F inal Result [facility] * (ABNORMAL) ALL CBC WITH AUTO DIFF (09/26/2024 11:39 AM EDT) Only the most recent of3 resultswithin the time period is included. [facility] WBC 13.5(H) 4.0 - 11.0 10 3/uL TBH TBH RBC 2.78(L) 4.70 - 6.10 10 6/uL TBH TBH HGB 7.4(L) 14.0 - 18.0 g/dL TBH TBH HCT 23.2(LL) 42.0 - 54.0 % [facility] Comment:RESULTS CALLED TO NICHOL SWAN RN TB MCV 83.5 80.0 - 94.0 fL TBH TBH MCH 26.6 25.9 - 34.0 pg TBH TBH MCHC 31.9 29.9 - 35.2 g/dL TBH TBH RDW [...] CLINISYNC F ina Result Performing Organization Address [facility] de Phone Number [facility] * (ABNORMAL) METRO IRON AND TIBC (09/11/2024 [...] CLINISYNC F ina Result Performing Organization Address [facility] de Phone Number [facility] * (ABNORMAL) [facility] FERRITIN (09/11/2024 11:51 AM EDT) Only the most recent of2 resultswithin the time period is included. FERRITIN 485.0(H) 26.0 - 388.0 ng/mL TBH 09/11/2024 11:5 1 AM EDT 09/11/2024 11:53 AM EDT Narrative CLINISYNC - 09/11/2024 1:05 PM EDT Generic External Data Provider CLINIS[facility]NC Raul inal Result Performing Organization Address [facility] Co de Phone Number [facility] * (ABNORMAL) ALL BASIC METABOLIC PANEL (09/11/2024 [...] 0.70 - 1.30 mg/dL TBH TBH EGFR-AF CZECH 40(L) >=60 mL/min/1.7 3m 2 TBH TBH EGFR-NON AF CZECH 33(L) >=60 mL/min/1.7 3m 2 TBH BUN CREATININE RATIO 12.7 TBH CALCIUM 8.9 8.5 - 10.1 mg/dL [facility]H 09/11/2024 11:5 1 AM EDT 09/11/2024 11:53 AM EDT Narrative CLINISYNC - 09/11/2024 12:34 PM EDT Generic External Data Provider CLINISYNC Rual inal Result Performing Organization Address [facility] de Phone Number [facility] * [facility] PROSTATE SPECIFIC ANTIGEN SCRN (08/10/2024 11:00 AM EDT) PROSTATE SPECIFIC ANTIGEN SCRN 0.44 <=4.00 ng/mL TBH 08/10/2024 11:0 0 AM EDT 08/10/2024 11:02 AM EDT Narrative CLINISYNC - 08/10/2024 12:40 PM EDT Fidel CALDERAISYYASMIN Final Result Performing Organization Address [facility] Co de Phone Number [facility] * (ABNORMAL) MLR HEMOGLOBIN A1C (08/10/2024 11:00 AM EDT) GLYCOHEMOGLOBIN A1C 6.8(H) 4.5 - 6.2 % TB Comment: ADA RECOMMENDED LIMIT 4.0 - 6.0 ADA THERAPEUTIC TARGET < 7.0 ACTION SUGGESTED > 7.0 ESTIMATED AVERAGE GLUCOSE 148 mg/dL TB 08/10/2024 11:0 0 AM EDT 08/10/2024 11:02 AM EDT Narrative CLINISYNC - 08/10/2024 12:40 PM EDT us Fidel VEGA Final Result Performing Organization Address [facility] de Phone Number [facility] * (ABNORMAL) [facility] LIVER PANEL (08/10/2024 11:00 AM EDT) BILIRUBIN TOTAL 0.2 0.2 - 1.0 mg/dL TB BILIRUBIN DIRECT 0.1 0.0 - 0.2 mg/dL TB ASPARTATE AMINO TRANSFERASE 15 15 - 37 [...] - 08/10/2024 12:20 PM EDT us Fidel VEGA Final Result Performing Organization Address [facility] Co de Phone Number [facility] * ALL THYROID STIM HORMONE (08/10/2024 11:00 AM EDT) THYROID STIMULATING HORMONE 1.267 0.358 - 3.740 uIU/mL TB 08/10/2024 11:0 0 AM EDT 08/10/2024 11:02 AM EDT Narrative CLINISYNC - 08/10/2024 12:20 PM EDT Fidel Reis MD CLINISYNC Final Result Performing Organization Address [facility] Co de Phone Number [facility] * (ABNORMAL) ALL LIPID PROFILE (FASTING) [...] 08/10/2024 12:20 PM EDT Fidel Reis MD CLINISYYASMIN Final Result Performing Organization Address City/[facility]/ZIP Co de Phone Number [facility] TB from Last 3 Months Insurance BS MEDICARE Care Teams Gear Straightener Relationship Specialty Start Date End Date Fidel Reis MD [address] [facility] [place] [address] PCP - General Family Medicine 11/18/23
--- OUTSIDE RECORDS SUMMARY | 2024-11-08 10:33 | XMS_ITS | Encounter Summary ---
Author Organization [facility] Address [address] [place] [address] Care Team Providers Care Quartz Miner Name Role Phone Fidel Reis MD Unavailable Fidel Reis MD Primary Care Provider [phone] Fidel Reis MD Primary Care Provider [phone] Fidel Reis MD Primary Care Provider [phone] Fidel Reis MD Unavailable Alvin Gonzalez MA Unavailable [phone] Encounter Details Date Type Department Care Team (Late st Contact Info) Description 06/11/2023 Abstract [facility] [address] [place] [address] Jj Bah MD [address] [place] [address] [place] [address] Social History Tobacco Use Types [...] 02/01/2025 10:30 AM EST Office Visit [facility] [address] [place] [address] Fidel Reis MD [address] [place] [address] documented as of this encounter Visit Diagnoses Not on filedocumented in this encounter Care Teams Quartz Miner Relationship Specialty Start Date End Date Fidel Reis MD [address] [place] [address] [facility]/26/23 Fidel Reis MD [address] [place] [address] PCP - General Family Medicine 05/12/23 08/29/23 Fidel Reis MD [address] [place] [address] PCP - General Family Medicine 08/30/23 08/30/23 Fidel Reis MD [address] [place] [address] PCP - General Family Medicine 11/18/23 Fidel Reis MD [address] [place] [address] PCP - [facility] 05/05/24 08/29/24 Alvin Gonzalez MA [address] [place] [address] Family Medicine 08/08/24 08/15/24 documented as of this encounter
--- OUTSIDE RECORDS SUMMARY | 2024-11-08 10:33 | XMS_ITS | Encounter Summary ---
Author Organization [facility] Address [address] [place] [address] Care Team Providers Care Nuclear Physicist Name Role Phone Fidel Reis MD Primary Care Provider [phone] Fidel Reis MD Unavailable Fidel Reis MD Primary Care Provider [phone] Fidel Reis MD Primary Care Provider [phone] Fidel Reis MD Primary Care Provider [phone] Fidel Reis MD Unavailable Alvin Gonzalez MA Unavailable [phone] Encounter Details Date Type Department Care Team (Late st Contact Info) Description 04/06/2023 Abstract [facility] [address] [place] [address] Fidel Reis MD [address] [place] [address] Social History Tobacco Use Types Packs/Day Years [...] Visit [facility] [address] [place] [address] Fidel Reis MD [address] [place] [address] documented as of this encounter Visit Diagnoses Not on filedocumented in this encounter Care Teams Nuclear Physicist Relationship Specialty Start Date End Date Fidel Reis MD PCP - General Family Medicine 12/10/22 05/11/23 Fidel Reis MD [address] [place] [address] PCP - [facility] 02/26/23 Fidel Reis MD [address] [place] [address] PCP - General Family Medicine 05/12/23 08/29/23 Fidel Reis MD [address] [place] [address] PCP - General Family Medicine 08/30/23 08/30/23 Fidel Reis MD [address] [place] [address] PCP - General Family Medicine 11/18/23 Fidel Reis MD [address] [place] [address] PCP - [facility] 05/05/24 08/29/24 Alvin Gonzalez MA [address] [place] [address] Family Medicine 08/08/24 08/15/24 documented as of this encounter
--- OUTSIDE RECORDS SUMMARY | 2024-11-08 10:33 | XMS_ITS | Encounter Summary ---
Author Organization [facility] Address [address] [place] [address] Care Team Providers Care Yard Engineer Name Role Phone Fidel Reis MD Unavailable Fidel Reis MD Primary Care Provider [phone] Fidel Reis MD Primary Care Provider [phone] Fidel Reis MD Primary Care Provider [phone] Fidel Reis MD Unavailable Alvin Gonzalez MA Unavailable [phone] Encounter Details Date Type Department Care [...] Office Visit [facility] [address] [place] [address] Fidel Reis MD [address] [place] [address] documented as of this encounter Procedures Procedure Name Priority Date/Time Associated Diagnosis Comments MR ANKLE LT WO CON 05/18/2023 4: 05 PM EST documented in this encounter Results * MR ANKLE LT WO CON (05/18/2023 4:05 PM EST) Anatomical Region Laterality Modality Other 05/18/2023 4:05 PM EST Narrative 05/18/2023 4:48 [place] [address] Magnetic Resonance Report Signed Patient: JOEL MIRANDA MR#: [id number] : 1960 Acct:[id number] Age/Sex: 62 / M ADM Date: 05/18/23 Loc: MRI Attending Dr: KASSIE MOFFETT Ordering Physician: KASSIE MOFFETT Date of Service: 05/18/23 Procedure(s): ankle LT wo con Accession Number(s): [id number] cc: KASSIE MOFFETT ; Fidel Reis M.D. [facility] [place] [id number] Patient Name: JOEL MIRANDA MRN: [id number] date: 1960 Sex: M Assigned Patient Location: MRI Current Patient Location: MRI Accession/Order Number: [id number] Exam Date: 05/18/2023 10:51 Report Date: 05/18/2023 [...] Signed By: 05/18/23 1648 DD/ 1605 TD/TT: Solar Sales Advisor: Procedure Note Radiology, Radiologist, MD - 05/18/2023 [place] [address] Magnetic Resonance Report Signed Patient: JOEL MIRANDA R#: [id number] : 1960cct:[id number] Age/Sex: 62 / MADM Date: 05/18/23 Loc: MRI Attending Dr: KASSIE MOFFETT Ordering Physician: KASSIE MOFFETT Date of Service: 05/18/23 Procedure(s): MR ankle LT wo con Accession Number(s): [id number] cc: KASSIE MOFFETT ; Fidel Reis M.D. [facility] [place] [id number] Patient Name: JOEL MIRANDA MRN: [id number] date: 1960 Sex: M Assigned Patient Location: MRI Current Patient Location: MRI Accession/Order Number: [id number] Exam Date: 05/18/2023 10:51 Report Date: 05/18/2023 [...] M.D. Signed By:05/18/23 1648 DD/ 1605 TD/TT: Solar Sales Advisor: Generic External Data Provider [facility] Final Result documented in this encounter Visit Diagnoses Not on filedocumented in this encounter Care Teams Yard Engineer Relationship Specialty Start Date End Date Fidel Reis MD [address] [place] [address] [facility] 02/26/23 Fidel Reis MD [address] [place] [address] PCP - General Family Medicine 05/12/23 08/29/23 Fidel Reis MD [address] [place] [address] PCP - General Family Medicine 08/30/23 08/30/23 Fidel Reis MD [address] [place] [address] PCP - General Family Medicine 11/18/23 Fidel Reis MD [address] [place] [address] PCP - [facility] 05/05/24 08/29/24 Alvin Gonzalez, REBEL [address] [place] [address] Family Medicine 08/08/24 08/15/24 documented as of this encounter
--- OUTSIDE RECORDS SUMMARY | 2024-11-08 10:33 | XMS_ITS | Encounter Summary ---
Author Organization [facility] Address [address] [place] [address] Care Team Providers Care Manager Culture Name Role Phone Fidel Reis MD Primary Care Provider [phone] Encounter Details Date Type Department Care Team (Late st Contact Info) Description 10/05/2024 Orders Only [facility] [address] [address] Klaus Brar MD 703 [facility] [address] [place] [address] Social History Tobacco Use Types [...] often do you attend chur ch or latter-day services? Patient declined 10/17/2023 Do you belong [...] time in the past 12 m [facility], were you homeless or living [...] Visit [facility] [address] [place] [address] Fidel Reis MD [address] [place] [address] documented as of this encounter Procedures Procedure Name Priority Date/Time Associated Diagnosis Comments GENERAL PATHOLOGY Routine 10/02/2024 2:14 PM EDT documented in this encounter Results * GENERAL PATHOLOGY (10/02/2024 2:14 PM EDT) us Klaus Edwards MD [facility] Final Result documented in this encounter Visit Diagnoses Not on filedocumented in this encounter Care Teams Manager Culture Relationship Specialty Start Date End Date Fidel Reis MD [address] [place] [address] PCP - General Family Medicine 11/18/23 documented as of this encounter
--- OUTSIDE RECORDS SUMMARY | 2024-11-08 10:33 | XMS_ITS | Encounter Summary ---
Author Organization [facility] Address [address] [place] [address] Care Team Providers Care Ground Control Approach Technician Name Role Phone Fidel Reis MD Unavailable Fidel Reis MD Primary Care Provider [phone] Fidel Reis MD Primary Care Provider [phone] Fidel Reis MD Primary Care Provider [phone] Fidel Reis MD Unavailable Alvin Gonzalez MA Unavailable [phone] Encounter Details Date Type Department Care Team (Late st Contact Info) Description 06/17/2023 Abstract [facility] [address] [place] [address] Jonathan Bah DPM [address] [address] Social History Tobacco Use [...] 02/01/2025 10:30 AM EST Office Visit [facility] [address] [place] [address] Fidel Reis MD [address] [place] [address] documented as of this encounter Visit Diagnoses Not on filedocumented in this encounter Care Teams Ground Control Approach Technician Relationship Specialty Start Date End Date Fidel Reis MD [address] [place] [address] PCP - [employer] 02/26/23 Fidel Reis MD [address] [place] [address] PCP - General Family Medicine 05/12/23 08/29/23 Fidel Reis MD [address] [place] [address] PCP - General Family Medicine 08/30/23 08/30/23 Fidel Reis MD [address] [place] [address] PCP - General Family Medicine 11/18/23 Fidel Reis MD [address] [place] [address] PCP - [facility] 05/05/24 08/29/24 Alvin Gonzalez MA [address] [place] [address] Family Medicine 08/08/24 08/15/24 documented as of this encounter
--- OUTSIDE RECORDS SUMMARY | 2024-11-08 10:33 | XMS_ITS | Encounter Summary ---
Author Organization [facility] Address [address] [place] [place] [address] Care Team Providers Care Production Director Name Role Phone Fidel Reis MD Unavailable Fidel Reis MD Primary Care Provider [phone] Fidel Reis MD Primary Care Provider [phone] Fidel Reis MD Primary Care Provider [phone] Fidel Reis MD Unavailable Alvin Gonzalez MA Unavailable [phone] Encounter Details Date Type Department Care Team (Late st Contact Info) Description 06/17/2023 Orders Only [facility] [address] [place] [address] Fidel Reis MD [address] [place] [address] Social History Tobacco Use Types [...] 10:30 AM EST Office Visit [facility] [address] [place] [address] Fidel Reis MD [address] [place] [address] documented as of this encounter Procedures Procedure Name Priority Date/Time Associated Diagnosis Comments WOUND CULTURE Routine 06/16/2023 11:04 AM EDT documented in this encounter Results * Wound culture (06/16/2023 11:04 AM EDT) Swab Fidel Reis MD LAB MICROBIOLOGY - GENERAL ORDER LUZ ELENA Final Result documented in this encounter Visit Diagnoses Not on filedocumented in this encounter Care Teams Production Director Relationship Specialty Start Date End Date Fidel Reis MD [address] [place] [address] PCP - [facility] 02/26/23 Fidel Reis MD [address] [place] [address] PCP - General Family Medicine 05/12/23 08/29/23 Fidel Reis MD [address] [place] [address] PCP - General Family Medicine 08/30/23 08/30/23 Fidel Reis MD [address] [place] [address] PCP - General Family Medicine 11/18/23 Fidel Reis MD [address] [place] [address] PCP - [facility] 05/05/24 08/29/24 Alvin Gonzalez MA [address] [place] [place] [address] Family Medicine 08/08/24 08/15/24 documented as of this encounter
--- OUTSIDE RECORDS SUMMARY | 2024-11-08 10:33 | XMS_ITS | Encounter Summary ---
Author Organization [facility] tem Address [id number] [address] [place] [address] Care Team Providers Care Lead Manufacturing Engineering Tech Name Role Phone Fidel Reis MD Primary Care Provider [phone] Encounter Details Date Type Department Care Team (Late st Contact Info) Description 10/11/2023 Telephone [facility] Imaging [address] [place] [address] Milly Kaur, RENETTA Social History [...] on filedocumented in this encounter Care Teams Lead Manufacturing Engineering Tech Relationship Specialty Start Date End Date Fidel Reis MD PCP - General 12/28/16 documented as of this encounter
--- OUTSIDE RECORDS SUMMARY | 2024-11-08 10:33 | XMS_ITS | Encounter Summary ---
Author Organization [facility] Address [address] [place] [address] Care Team Providers Care Refrigerator Cabinetmaker Name Role Phone Jameel Smith Primary Care Provider Unavailabl e Source Comments In the event this information is protected by the Federal Confidentiality of Alcohol and Drug AbusePatient Records regulations: The Federal rules restrict any use of the information to criminally investigate or prosecute any alcohol or drug abuse patient.[facility] Encounter Details Date Type Department Care Team (Late st Contact Info) Description 06/09/2023 Lab Requisition [facility] [address] [place] [address] Jonathan Bah DPM Social History Tobacco Use [...] SUSCEPTIBILITY - ANAEROBE 06/14/2023 2:41 PM EDT [facility] [employer] Final Report SEE NOTE 06/14/2023 2:41 PM EDT [facility] [employer] Comment: Prevotella disiens Organism identified by client [...] methodology. Interpret results with caution. Performed By: [facility] [address] [place] [address] [address] [employer] Core Feeder: Tre Westfall MD, PhD CLIA Number: [id number] Micro Specimen BONE BIOPSY SPECIMEN / Unknown 06/04/2023 10:32 AM EST 06/09/2023 4:25 AM EDT [facility] Final Resul t Performing Organization Address [facility] de Phone Number [facility] [employer] [address] [place] [address] * (ABNORMAL) ORGANISM RENAN (06/04/2023 10:32 AM EST) [facility] Culture, Organism RENAN Result Prevotella disiens(A) MINIMUM INHIBITORY CONCENTRATION ([place]) 06/18/2023 4:00 PM EDT [facility] Comment: Identification performed by client. Susceptibility testing has been completed by [facility]. Refer to [facility] for final report. Beta Lactamase Positive 06/18/2023 4:00 PM EDT [facility] Micro Specimen BONE BIOPSY SPECIMEN / Unknown 06/04/2023 10:32 AM EST 06/09/2023 4:25 AM EDT [facility] Final Resul t Performing Organization Address [facility] Co de Phone Number [facility] [address] [facility] [place] [address] [place] [address], documented in this encounter Visit Diagnoses Not on filedocumented in this encounter Care Teams Refrigerator Cabinetmaker Relationship Specialty Start Date End Date Jameel Smith PCP - General Internal Medicine 07/01/11 documented as of this encounter
--- OUTSIDE RECORDS SUMMARY | 2024-11-08 10:33 | XMS_ITS | Encounter Summary ---
Author Organization [facility] Address [address] [place] [address] Care Team Providers Care Die Casting Supervisor Name Role Phone Fidel Reis MD Primary Care Provider [phone] Fidel Reis MD Unavailable Fidel Reis MD Primary Care Provider [phone] Fidel Reis MD Primary Care Provider [phone] Fidel Reis MD Primary Care Provider [phone] Fidel Reis MD Unavailable Alvin Gonzalez MA Unavailable [phone] Encounter Details Date Type Department Care Team (Late st Contact Info) Description 10/27/2022 Abstract [facility] [address] [address] Klaus Brar MD [address] [address] Social History Tobacco Use Types [...] 02/01/2025 10:30 AM EST [facility] [address] [place] [address] Fidel Reis MD [address] [place] [address] documented as of this encounter Visit Diagnoses Not on filedocumented in this encounter Care Teams Die Casting Supervisor Relationship Specialty Start Date End Date Fidel Reis MD PCP - General Family Medicine 12/10/22 05/11/23 Fidel Reis MD [address] [place] [address] PCP - [facility] 02/26/23 Fidel Reis MD [address] [place] [address] PCP - General Family Medicine 05/12/23 08/29/23 Fidel Reis MD [address] [place] [address] PCP - General Family Medicine 08/30/23 08/30/23 Fidel Reis MD [address] [place] [address] PCP - General Family Medicine 11/18/23 Fidel Reis MD [address] [place] [address] PCP - [facility] 05/05/24 08/29/24 Alvin Gonzalez, REBEL [address] [place] [address] Family Medicine 08/08/24 08/15/24 documented as of this encounter
--- OUTSIDE RECORDS SUMMARY | 2024-11-08 10:33 | XMS_ITS | Clinical Summary ---
Author Organization [facility] Address [facility] [place] [id number] Care Team Providers Care Sand Miller Name Role Phone Jameel Smith Luciana Primary [...] daily. Active tamsulosin (FLOMAX) 0.4 mg ORAL [id number]: Paraplegia (HCC),Disturbanc e of skin sensation Take [...] 07/08/2011 Shingrix Vaccine (1 of 2) 07/08/2011 Influenza Vaccine (#1) 2024 RSV Vaccine (1 - 1-dose 75+ series) 2036 Insurance MEDICARE MMO [employer] PPO Care Teams Sand Miller Relationship Specialty Start Date End Date Jameel Smith PCP - General Internal Medicine 07/01/11
--- OUTSIDE RECORDS SUMMARY | 2024-11-08 10:33 | XMS_ITS | Encounter Summary ---
Author Organization [facility] Address [address] [place] [address] Care Team Providers Care Typesetter Apprentice Name Role Phone Fidel Reis MD Primary Care Provider [phone] Fidel Reis MD Unavailable Fidel Reis MD Primary Care Provider [phone] Fidel Reis MD Primary Care Provider [phone] Fidel Reis MD Primary Care Provider [phone] Fidel Reis MD Unavailable Alvin Gonzalez MA Unavailable [phone] Encounter Details Date Type Department Care Team (Late st Contact Info) Description 02/15/2023 Abstract [facility] [address] [place] [address] Jonathan Bah DPM [address] [address] Social History Tobacco Use Types [...] Office Visit [facility] [address] [place] [address] Fidel Reis MD [address] [place] [address] documented as of this encounter Visit Diagnoses Not on filedocumented in this encounter Care Teams Typesetter Apprentice Relationship Specialty Start Date End Date Fidel Reis MD PCP - General Family Medicine 12/10/22 05/11/23 Fidel Reis MD [address] [place] [address] PCP - [facility] 02/26/23 Fidel Reis MD [address] [place] [address] PCP - General Family Medicine 05/12/23 08/29/23 Fidel Reis MD [address] [place] [address] PCP - General Family Medicine 08/30/23 08/30/23 Fidel Reis MD [address] [place] [address] PCP - General Family Medicine 11/18/23 Fidel Reis MD [address] [place] [address] PCP - [facility] 05/05/24 08/29/24 Alvin Gonzalez MA [address] [place] [address] Family Medicine 08/08/24 08/15/24 documented as of this encounter
--- OUTSIDE RECORDS SUMMARY | 2024-11-08 10:33 | XMS_ITS | Encounter Summary ---
Author Organization [facility] Address [address] [place] [address] Care Team Providers Care Airport Operations Specialist Name Role Phone Fidel Reis MD Primary Care Provider [phone] Fidel Reis MD Unavailable Fidel Reis MD Primary Care Provider [phone] Fidel Reis MD Primary Care Provider [phone] Fidel Reis MD Primary Care Provider [phone] Fidel Reis MD Unavailable Alvin Gonzalez MA Unavailable Encounter Details Date Type Department Care Team (Late st Contact Info) Description 09/08/2022 Abstract [facility] [address] [address] Klaus Brar MD [address] [address] Social History Tobacco Use Types [...] 02/01/2025 10:30 AM EST [facility] [address] [place] [address] Fidel Reis MD [address] [place] [address] documented as of this encounter Visit Diagnoses Not on filedocumented in this encounter Care Teams Airport Operations Specialist Relationship Specialty Start Date End Date Fidel Reis MD PCP - General Family Medicine 12/10/22 05/11/23 Fidel Reis MD [address] [place] [address] PCP - [facility] 02/26/23 Fidel Reis MD [address] [place] [address] PCP - General Family Medicine 05/12/23 08/29/23 Fidel Reis MD [address] [place] [address] PCP - General Family Medicine 08/30/23 08/30/23 Fidel Reis MD [address] [place] [address] PCP - General Family Medicine 11/18/23 Fidel Reis MD [address] [place] [address] PCP - [facility] 05/05/24 08/29/24 Alvin Gonzalez, REBEL [address] [place] [address] Family Medicine 08/08/24 08/15/24 documented as of this encounter
--- OUTSIDE RECORDS SUMMARY | 2024-11-08 10:33 | XMS_ITS | Encounter Summary ---
Author Organization [facility] Address [address] [place] [address] Care Team Providers Care Private Equity Analyst Name Role Phone Fidel Reis MD Unavailable Fidel Reis MD Primary Care Provider [phone] Fidel Reis MD Primary Care Provider [phone] Fidel Reis MD Primary Care Provider [phone] Fidel Reis MD Unavailable Alvin Gonzalez MA Unavailable [phone] Encounter Details Date Type Department Care Team (Late st Contact Info) Description 06/07/2023 Abstract [facility] [address] [place] [address] Jonathan Bah DPM [address] [address] Social History Tobacco Use Types [...] 02/01/2025 10:30 AM EST Office Visit [facility] [address] [place] [address] Fidel Reis MD [address] [place] [address] documented as of this encounter Visit Diagnoses Not on filedocumented in this encounter Care Teams Private Equity Analyst Relationship Specialty Start Date End Date Fidel Reis MD [address] [place] [address] PCP - [place] [employer] 02/26/23 Fidel Reis MD [address] [place] [address] PCP - General Family Medicine 05/12/23 08/29/23 Fidel Reis MD [address] [place] [address] PCP - General Family Medicine 08/30/23 08/30/23 Fidel Reis MD [address] [place] [address] PCP - General Family Medicine 11/18/23 Fidel Reis MD [address] [place] [address] PCP - [facility] 05/05/24 08/29/24 Alvin Gonzalez MA [address] [place] [address] Family Medicine 08/08/24 08/15/24 documented as of this encounter
--- OUTSIDE RECORDS SUMMARY | 2024-11-08 10:34 | XMS_ITS | Clinical Summary ---
Author Organization [facility] 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 Felting Machine Operator Helper Name Role Phone Fidel Reis MD Primary Care Provider + Allergies Active Allergy Reactions Criticality Noted Date Comments Vancomycin 06/21/2015 States had kidney issues after taking Medications lisinopril (PRINIVIL;ZESTRI L) 20 MG tablet Take 0.5 tablets by mouth daily Active fenofibrate (TRICOR) 145 MG tablet fenofibrate nanocrystallized 145 mg tablet TAKE 1 TABLET BY MOUTH AT BEDTIME Active glipiZIDE (GLUCOTROL) 10 MG tablet glipizide 10 mg tablet TAKE 1 TABLET BY MOUTH TWICE DAILY Active sodium hypochlorite (DAKINS) 0.125 % SOLN external solution Apply topically daily Use on the Curlex gauze dressings changed once daily on the sacrococcygeal wound and buttock wounds 473 mL 2 06/27/19 23 Active atenolol (TENORMIN) 100 MG tablet Take 1 tablet by mouth daily 30 tablet 3 06/28/19 23 Active citalopram (CELEXA) 40 MG tablet Take 1 tablet by mouth daily 30 tablet 3 06/28/19 23 Active amLODIPine (NORVASC) 10 MG tablet Take 1 tablet by mouth daily 30 tablet 3 06/28/19 23 Active Multiple Vitamin (MULTIVITAMIN) TABS tablet Take 1 tablet by mouth daily 30 tablet 2 06/28/19 23 Active CMC-Calcium Alginate-Silver (TEGADERM ALGINATE AG DRESSING) 4 X 5 PADS Apply 1 each topically daily Right ankle and foot open wounds. Then cover with Kerlex and Benton 25 each 3 06/27/19 23 Active Gauze Pads & Dressings (KERLIX GAUZE ROLL MEDIUM) MISC 2 each by Does not apply route daily 96 each 2 06/27/19 23 Active ferrous sulfate (IRON 325) 325 (65 Fe) MG tablet Take 1 tablet by mouth daily (with breakfast) 90 tablet 1 06/27/19 Active JANUVIA 100 MG tablet Take 1 tablet by mouth daily 06/26/19 Active oxybutynin (DITROPAN XL) 15 MG extended release tablet Take 1 tablet by mouth daily 30 tablet 3 09/26/19 23 Active Active Problems Patient Care Coordination No te Formatting of this note migh t be different from the original. RECEIVING CHECKER: KERRI HARTMAN PH: [phone] EXT: [phone] FAX : [phone] [facility] Ph. 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 07/06/2022 Iron deficiency anemia 06/26/2022 Acute kidney injury 06/25/2022 Pressure injury of right ankle, stage 4 06/25/19 23 Overview (06/24/2022): Fibular malleolus Acute kidney injury superimposed on CKD 06/24/19 23 Abnormal EKG 06/23/2022 Neurogenic bladder 06/23/2022 Hyperkalemia 06/22/2022 MSSA (methicillin susceptibl e Staphylococcus aureus) infection 05/28/2017 Overview (05/28/2017): RLE Decubitus ulcer of coccygeal region, stage 4 02/2018 Cellulitis 04/08/2017 Bacterial infection 02/17/2017 Morbid obesity due to excess calories 01/01/2017 Acute on chronic renal failure 12/30/2016 Open wound of right ankle 12/30/2016 Enterococcus faecalis infection 12/28/2016 Skin ulcer of right heel with fat layer exposed 09/02/2016 Mixed hyperlipidemia 04/25/2015 Hyponatremia 04/25/2015 Skin ulcer of right 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 04/25/2015 Overview (04/25/2015): Lateral ankle @ fibular malleolus Decubitus ulcer of coccygeal region 07/19/2013 Cauda equina syndrome 12/09/2011 Overview (12/03/2014): replace inactive diagnosis Diabetes mellitus 07/02/2011 Paraplegia 03/12/2011 Open wound of knee, leg (exc ept thigh), and ankle, complicated 02/25/2011 Hypertension Depression Osteomyelitis of right foot Osteomyelitis of ankle or foot, right, acute Resolved Problems Problem Noted Date Diagnosed Date Resolved Date Acute hematogenous osteomyel itis of right foot 12/25/2016 06/09/2017 Abscess of right foot including toes 11/04/2016 01/13/2017 Overview (11/04/2016): Lateral 5th MPJ Skin ulcer of right midfoot region with fat layer exposed 10/08/2016 01/13/2017 Overview (10/08/2016): Lateral 5th MPJ Sepsis due to methicillin re sistant Staphylococcus aureus (MRSA) 09/09/2016 05/26/2017 Ulcer of right midfoot with fat layer exposed 09/03/19 17 04/14/2017 Overview (09/02/2016): Right 5th MPJ Skin ulcer of right calf wit h fat layer exposed 04/25/2015 04/14/2017 Cellulitis of right lower extremity 04/24/2015 06/09/2017 Cellulitis and abscess of leg, except foot 02/25/2011 09/02/2016 Cellulitis of right leg 09/2016 Immunizations Immunization Administration Dates Next Due Influenza Vaccine, unspecified formulation 01/27 Influenza, FLUARIX, FLULAVAL , FLUZONE (age 6 mo+) and AFLURIA, (age 3 y+), Quadv PF, 0.5mL 04/10/2017 Social History Tobacco Use Types Packs/Day Years Used Date Smoking Tobacco: Never Smokeless Tobacco: Never Tobacco Cessation:Counseling Given: Not Answered Alcohol Use Standard Drinks/Week Comments No 0 (1 standard drink = 0.6 oz pur e alcohol) AUDIT-C Answer Date Recorded Q1: How often do you have a drink containing alcohol? Never 06/22/2022 Q2: How many drinks containi ng alcohol do you have on a typical day when you are drinking? Patient does not drink Q3: How often do you have si x or more drinks on one occasion? Never 06/22/2022 Interpersonal Safety Domain Source: IP Abuse Scr eening Answer Date Recorded How often does anyone, shaun ni family and friends, physically hurt you? Not on file 2022 How often does anyone, shaun ni family and friends, scream or curse at you? Not on file 2022 How often does anyone, shaun ni family and friends, insult or talk down to you? Not on file 2022 How often does anyone, shaun ni family and friends, threaten you with harm? Not on file 2022 Read-Only, Retired: Physical Abuse Denies 2022 Read-Only, Retired: Verbal Abuse Denies 2022 Read-Only, Retired: Emotional abuse Denies 2022 Read-Only, Retired: Financial Abuse Denies 2022 Read-Only, Retired: Sexual abuse Denies 2022 Sex and Gender Information Value Date Recorded Sex Assigned at Not on file Legal Sex Male 10:15 PM EST Gender Identity Not on file Sexual Orientation Not on file Last Filed Vital Signs Vital Sign Reading Time Taken Comments Blood Pressure 120/67 09/25/2022 10:34 AM EDT Pulse 56 09/25/2022 10:34 AM EDT Temperature 36.5 C (97.7 F) 09/25/2022 10:34 AM EDT Respiratory Rate 16 2022 1:15 PM EDT Oxygen Saturation 96% 2022 1:15 PM EDT Inhaled Oxygen Concentration - - Weight 113.4 kg (250 lb) 09/25/2022 10:34 AM EDT Height 180.3 cm (5' 11 ) 09/25/2022 10:34 AM EDT Body Mass Index 34.87 09/25/2022 10:34 AM EDT Plan of Treatment Health Maintenance Due Date Last Done Comments Depression Monitoring 1973 HIV screen 1976 Diabetic retinal exam 07/08/1979 Hepatitis C screen 07/08/1979 DTaP/Tdap/Td vaccine (1 - Tdap) 1980 Pneumococcal 50+ years Vaccine (1 of 2 - PCV) 1980 Fecal-DNA (Cologuard): Average risk 2006 Sigmoidoscopy/CT colonography 2006 Shingles vaccine (1 of 2) 07/08/2011 Diabetic Alb to Cr ratio (uACR) test 04/24/2016 04/24/2015 Diabetic foot exam 04/09/2018 04/09/2017 Respiratory Syncytial Virus (RSV) or age 60 yrs+ (1 - Risk 60-74 years 1-dose series) 2021 Annual Wellness Visit (Medicare) 02/22/2023 Lipids 06/24/2023 06/23/2022, 03/30, 04/25/2015 FIT/FOBT: Average risk 06/26/2023 06/25/2022 Colonoscopy 06/27/2023 06/26/2022, 06/26/2022 Colorectal Cancer Screen 06/27/2023 A1C test (Diabetic or Prediabetic) 07/08/2023 2022, 04/09/2017, 12/23/2016, Additional history exists GFR test (Diabetes, CKD 3-4, OR last GFR 15-59) 09/19/2023 09/18/2022, 07/02/2022, 06/25/2022, Additional history exists COVID-19 Vaccine ( season) 2023 Flu vaccine (#1) 10/27/2024 04/10/2017, 01/28/2016 Hepatitis A vaccine Aged Out No longe r eligible based on patient's age to complete this topic Hepatitis B vaccine Aged Out No longe r eligible based on patient's age to complete this topic Hib vaccine Aged Out No longer eligi ble based on patient's age to complete this topic Meningococcal (ACWY) vaccine Aged Out No longer eligible based on patient's age to complete this topic Meningococcal B vaccine Aged Out No l onger eligible based on patient's age to complete this topic Polio vaccine Aged Out No longer elig ible based on patient's age to complete this topic Goals Goal Patient Goal Type Associated Problems Recent Progress Patient-Stated? Author Blood Pressure < 140/90 Blood Pressure 120/67(2022 10:34 AM EDT) No Iesha Cardenas RN non smoker Lifestyle On track( 4:00 PM EDT) No Iesha Cardenas RN daily aspirin Lifestyle Not on track( 4:00 PM EDT) No Iesha Cardenas RN LDL CALC < 100 Result Component No Iesha Cardenas RN HEMOGLOBIN A1C < 7.0 Result Component 7.6( 10:47 AM EDT) No Iesha Cardenas RN Medical Devices Implanted Type Area Head Cager Device Identifier Shelf Expiration Date Model / Serial / Lot Graft Subst Resorbable Mini 5cc Implanted:Qty: 1 on 12/25/2016 by Gabriel Haile DPM at [facility] Bone/Gra ft/Tissu e/Human/ Synth Right: Foot [employer]-PMM 11/26/2020 [id number] / / [id number] Description:tobramyicin marci stituted with 10ml normal saline ref # [id number] exp 07/27/2018 lot # [id number] Procedures Procedure Name Priority Date/Time Associated Diagnosis Comments BASIC METABOLIC PANEL Routine 09/18/2022 1:12 PM EDT Cauda equina syndrome (HCC) Neurogenic bladder Urinary retention Urinary incontinence without sensory awareness HEMOGLOBIN A1C Stat [employer] Label print 2022 10:47 AM EDT COLONOSCOPY PROCEDURE Routine 06/26/2022 7:28 AM EDT BLOOD OCCULT STOOL DIAGNOSTIC [employer] Label Print 06/25/2022 7:45 PM EDT LIPID PANEL Routine 06/23/2022 6:40 AM EDT MICROALBUMIN, UR [employer] Label Print 04/24/2015 11:32 PM EST from Last 3 Months or Most Recently Relevant to Health Maintenance Results * (ABNORMAL) Basic Metabolic Panel (09/18/2022 1:12 PM EDT) Glucose 186(H) 70 - 99 mg/dL 09/18/2022 1:12 PM EDT [facility] BUN 32(H) 8 - 23 mg/dL 09/18/2022 1:12 PM T [facility] Creatinine 1.25(H) 0.70 - 1.20 mg/dL 09/18/2022 1:12 PM T [facility] Est, Glom Filt Rate >60 >60 mL/min/1.7 3m2 09/18/2022 1:12 PM T [facility] Comment: These results are not intended for [...] following therapy that affects renal tubular secretion. BUN/Creatinine Ratio 26(H) 9 - 20 09/18/2022 1:12 PM T [facility] Calcium 9.3 8.6 - 10.4 mg/dL 09/18/2022 1:12 PM T [facility] Sodium 137 135 - 144 mmol/L 09/18/2022 1:12 PM T [facility] Potassium 4.1 3.7 - 5.3 mmol/L 09/18/2022 1:12 PM [facility] Chloride 105 98 - 107 mmol/L 09/18/2022 1:12 PM T [facility] CO2 22 20 - 31 mmol/L 09/18/2022 1:12 PM T [facility] Anion Gap 10 9 - 17 mmol/L 09/18/2022 1:12 PM [facility] BLOOD SPECIMEN / Unknown 09/18/2022 1:12 PM EDT 09/18/2022 1:13 PM EDT us Jena Bradley HEAD GAUGE UNIT OPERATOR - INSIDE SALES REPRESENTATIVE CHEMISTRY ORDERABLE S Final Result [facility] [address] [phone] * (ABNORMAL) Hemoglobin A1C (2022 10:47 AM EDT) Hemoglobin A1C 7.6(H) 4.0 - 6.0 % 2022 10:47 AM EDT [facility] Estimated Avg Glucose 171 mg/dL 2022 10:47 AM EDT [facility] Comment: The ADA and AACC recommend providing the estimated average glucose result to permit better patient understanding of their HBA1c result. BLOOD SPECIMEN / Unknown 2022 10:47 AM EDT 2022 10:51 AM EDT Moisés Baltazar HEAD GAUGE UNIT OPERATOR - BRICK MAKER CHEMISTRY ORDERABLE S Final Result Performing Organization Address [facility]/ZIP Co de Phone Number [facility] [address] [phone] [phone] * Colonoscopy (06/26/2022 7:28 AM EDT) Tha Berg User - 06/26/2022 7:28 AM EDT No dictation Katerina Phillips MD ENDOSCOPY ORDERABLES Final Res ult * Blood occult stool #1 (06/25/2022 7:45 PM EDT) Occult Blood, Stool #1 NEGATIVE NEGATIVE 06/25/2022 7:45 PM EDT [facility] Date, Stool #1 06/25/2022 7:45 PM EDT [facility] Comment: Time, Stool #1 [id number] 06/25/2022 7:45 PM EDT [facility] STOOL SPECIMEN / Unknown 06/25/2022 7:45 PM EDT 06/25/2022 7:52 PM EDT Shelly Ritchie HEAD GAUGE UNIT OPERATOR - INSIDE SALES REPRESENTATIVE BODY FLUIDS A ND STOOLS ORDERABLES Final Result [facility] [address] [phone] * (ABNORMAL) Lipid Panel (06/23/2022 6:40 AM EDT) Cholesterol 147 <200 mg/dL 06/23/2022 6:40 AM EDT [facility] Comment: Cholesterol Guidelines: <200 Desirable 200-240 Borderline >240 Undesirable HDL 28(L) >40 mg/dL 06/23/2022 6:40 AM EDT [facility] Comment: HDL Guidelines: <40 Undesirable 40-59 Borderline >59 Desirable LDL Cholesterol 98 0 - 130 mg/dL 06/23/2022 6:40 AM EDT [facility] Comment: LDL Guidelines: <100 Desirable 100-129 Near to/above Desirable 130-159 Borderline >159 Undesirable Direct (measured) LDL and calculated LDL are not interchangeable tests. Chol/HDL Ratio 5.3(H) <5 06/23/2022 6:40 AM EDT [facility] Comment: Triglycerides 107 <150 mg/dL 06/23/2022 6:40 AM EDT [facility] Comment: Triglyceride Guidelines: <150 Desirable 150-199 Borderline 200-499 High >499 Very high Based on AHA Guidelines for fasting triglyceride, December 2011. BLOOD SPECIMEN / Unknown 06/23/2022 6:40 AM EDT 06/23/2022 5:47 PM EDT us Zoila Villafuerte PA-C CHEMISTRY ORDERABLES Final Result [facility] [address] [place] [address], [facility] [phone] [employer] [address] [phone] * (ABNORMAL) Microalbumin, Ur (04/24/2015 11:32 PM EST) Albumin Urine 416(H) <21 mg/L 04/25/2015 1:13 AM EST [facility] Creatinine, Ur 274.6(H) 28.0 - 217.0 mg/dL 04/25/2015 12:27 AM EST [facility] Microalb/Screed Operator. Ratio 151 mcg/mg creat 04/25/2015 1:13 AM EST [facility] Urine Microalbumin Interp 04/25/2015 1:13 AM EST [facility] Comment: REFERENCE RANGE NORMAL = 0 - 13 mcg/mg creat BORDERLINE = 14 - 30 mcg/mg creat ABNORMAL = >30 mcg/mg creat Performed at [address] [place] [address] ([phone] Urine 04/24/2015 11:3 2 PM EST 04/24/2015 11:46 PM EST us Marshal Avila MD URINE ORDERABLES Final Result Performing Organization Address City/State/[facility] Co de Phone Number [facility] [address] [place], [place] [address] [phone] [facility] from Last 3 Months or Most Recently Relevant to Health Maintenance Additional Health Concerns Infection Onset Date Last Indicated MRSA Comment:Right ankle 03/201701/07/2012 01/07/2012 Insurance MEDICARE Advance Directives * Full Code (Latest Code Status on File) Date Activated Date Inactivated Comments 2022 9:37 AM 2022 3:54 PM * Full Code Date Activated Date Inactivated Comments 06/22/2022 8:18 PM 06/26/2022 7:20 PM * Full Code Date Activated Date Inactivated Comments 06/14/2017 10:11 AM 06/14/2017 1:27 PM * Full Code Date Activated Date Inactivated Comments 04/09/2017 1:19 AM 04/13/2017 11:55 PM * Full Code Date Activated Date Inactivated Comments 12/25/2016 1:27 PM 12/29/2016 4:28 PM Healthcare Agents on File Name Relationship Healthcare Agent Relationshi p Communication Pradip Miranda Spouse Primary Decision Maker Care Teams Felting Machine Operator Helper Relationship Specialty Start Date End Date Fidel Reis MD PCP - General 07/03/15
--- OUTSIDE RECORDS SUMMARY | 2024-11-08 10:43 | XMS_ITS | CCD ---
Author Organization [facility] Care Team Providers Care Certified Medical Assistant Name Role Phone WESTONMICHAELA Unavailable Unavailable [...] NADERER, DR FIDEL Tellez Primary Care Unavailable MACHIASPORT, DR KHADAR Edwards Consulting Unavailable BRAR, DR CATHY Edwards Consulting Unavailable MD Fidel Abbott Primary Care Provider MD Cathy Brar Attending Provider [phone] Fidel Abbott MD Primary Care Provider MD Fidel Abbott Primary Care Provider [phone] MD Cathy Brar Attending Provider [phone] Fidel Abbott MD Primary Care Provider SHELLY MONDRAGON Referring Unavail able NADEREFIDEL Christie Primary Care UnavailASHLEE Juan Referring Unavailable NADERER, FIDEL LIEBERMAN Primary Care UnavailASHLEE Juan Referring Unavailable NADERER, FIDEL LIEBERMAN Primary Care Unavailabl e ANGELES NAGY Referring Unavailable NADERER, FIDEL LIEBERMAN Primary Care Unavailabl e LILO, ANGELES Attending Unavailable ANGELES NAGY Admitting Unavailable NADERER, FIDEL RIOSONY Primary Care Unavailabl e IACOB, MATIAS Admitting Unavailable IACOB, MATIAS Attending Unavailable CANDIDATABBY, MARY K Consulting Unavailable KATYERER, FIDEL LUISANA Primary Care Unavailabl e LILO, ANGELES Consulting Unavailable BREMYYAKOV FITZPATRICK Consulting Unavailable CIARAROSIE NEIL Consulting Unavailable AHMADMICHELLE Consulting Unavailable MILLYKATERINA BOYD Consulting Unavailable KATYJANUARY, FIDEL LUISANA Primary Care Unavailabl e LILO, ANGELES Referring Unavailable NADERER, FIDEL RIOSONY Primary Care Unavailabl e ASHLEE ERWIN Referring Unavailable NADEREPratik, FIDEL Primary Care Physician Milena NAZARIO, Fidel Primary Care Provider [phone] Fidel Abbott MD Unavailable Milena NAZARIO, Fidel Primary Care Provider [phone] MD Fidel Abbott Primary Care Provider [phone] MD Cathy Brar Attending Provider [phone] CRISTIANA Bah Attending Provider CRISTIANA Bahena Attending Provider [phone] Khadar Guerrero Referring Unavailable MILENA, FIDEL Primary Care Unavailable FIDEL ABBOTT Referring Unavailable Milena NAZARIO, Fidel Primary Care Provider Fidel Abbott MD Unavailable Milena NAZARIO, Fidel Primary Care Provider Fidel Abbott MD Primary Care Provider Nina River MD Attending Provider Cathy Brar MD Attending Provider Cathy Brar MD Attending Provider Milena NAZARIO, Fidel Primary Care Provider Fidel Abbott MD Unavailable FIDEL ABBOTT Attending Unavailable MILENA, FIDEL Attending Unavailable NADERER, FIDEL Attending Unavailable Alvin Gonzalez MA Unavailable Unavailable Fidel Abbott MD Primary Care Provider Cathy Brar MD Attending Provider [phone] Latha CAICEDO-C, Tami Christie Attending Provider ANGIE CHRISTY Attending Unavailable Jovanny VILLA Attending Unavailable ALLEN, Jovanny Christie Attending Unavailable Jovanny VILLA Referring Unavailable Brar, Cathy Admitting Unavailable Brar, Cathy Attending Unavailable Naderer, Fidel Primary Care Unavailable Aleta, Nina Admitting Unavailable Aleta, Nina Attending Unavailable Naderer, Fidel Primary Care Unavailable Brar, Cathy Admitting Unavailable Brar, Cathy Attending Unavailable Naderer, Fidel Primary Care Unavailable Brar, Cathy Admitting Unavailable Brar, Cathy Attending Unavailable Naderer, Fidel Primary Care Unavailable Naderer, Fidel Primary Care Unavailable Jesusita Navarro Admitting Unavailradha e Jesusita Navarro Attending Unavailabl e Allergies Allergy Classification Reported Allergen(s) Allergy Type Date of Onset Reaction(s) Facility (11 sources) Vancomycin; 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: [VANCOMYCIN] Drug Allergy 6 Shut kidneys down [facility] Repository (20 sources) Vancomycin Drug Allergy 6 Other, Unknown, Other (See Comments) [facility] (20 sources) omadacycline; 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: [omadacycl] Drug allergy 3 Renal pain (finding) [facility] (8 sources) ferrous sulfate; 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: [ferrous sulfate] Drug Allergy 3 Itching [facility] (1 source) Vancomycin Drug Allergy 5 [facility] Repository Medications Current Medications Medication Drug Class(es) Dates Sig (Normalized) Sig (Original) Acetaminophen (1 source) Start: 06-22-2022 acetaminophen (TYLENOL) tablet 650 mg acetaminophen 325 mg / HYDROcodone bitartrate 5 mg oral tablet (20 sources) Opioid Agonist Start: 10-02-2024 take 1 tablet by mouth every six hours as needed for pain Start: 09-04-2021 End: 02-06-2023 take 1 tablet [...] for pain 23 10November 15, 2017 November 21, 2017 12:00am November 22, 2017 12:01am amLODIPine 10 mg oral tablet (20 sources) Dihydropyridine Calcium Channel [place] Start: 10-23-2024 take 1 tablet by mouth once daily amLODIPine (Norvasc) 10 MG tablet Indications: Primary hypertension Take 1 tablet by mouth once daily 30 tablet 10/23/2024 Active Start: 12-07-2016 End: 12-08-2016 Amlodipine Discontinued Nov 12:00am December 08, 2016 2:50pm Start: 12-07-2016 End: 12-08-2016 Amlodipine Discontinued Nov 11:00pm December 08, 2016 1:50pm Start: 06-27-2016 take 1 tablet by mack th once daily amLODIPine (Norvasc) 10 MG tablet Indications: Primary hypertension Take 1 tablet by mouth once daily 30 tablet 08/14/2024 Active End: 06-26-2022 take 2 tablets by mouth once daily amlodipine (NORVASC) 5 MG tablet Take 10 mg by mouth daily 0 06/26/2022 Discontinued (Stop Taking at Discharge) atenolol 100 mg oral tablet (20 sources) beta-Adrenergic [place] Start: 08-28-2024 take 1 tablet by mouth once daily atenolol (Tenormin) 100 MG tablet Indications: Benign hypertension Take 1 tablet by mouth once daily 30 tablet 08/28/2024 Active Start: 06-23-2022 take 100 mg by mouth once rachel y 100 mg, Oral, DAILY, First dose on Wed06/23/22 at 0900, Until Discontinued Start: 06-29-2016 End: 08-10-2024 take 1 tablet by mouth once daily atenolol (Tenormin) 100 MG tablet Indications: Benign hypertension Take 1 tablet by mouth once daily 30 tablet 08/28/2024 Active End: 06-26-2022 take 2 tablets by mouth once daily atenolol (TENORMIN) 50 MG tablet Take 100 mg by mouth daily. 0 06/26/2022 Discontinued (Stop Taking at Discharge) atorvastatin 40 mg oral tablet (20 sources) HMG-CoA Reductase Inhibitor Start: 10-23-2024 take 1 tablet by mouth in the morning atorvastatin (Lipitor) 40 MG tablet Indications: Dyslipidemia TAKE 1 TABLET BY MOUTH IN THE MORNING 30 tablet 10/23/2024 Active Start: 08-14-2024 take 1 tablet by mack th in the morning atorvastatin (Lipitor) 40 MG tablet Indications: Dyslipidemia TAKE 1 TABLET BY MOUTH IN THE MORNING 30 tablet 08/14/2024 Active Start: 04-06-2023 End: 04-05-2024 take 1 tablet by mouth in the morning atorvastatin (Lipitor) 40 MG tablet Indications: Dyslipidemia TAKE 1 TABLET BY MOUTH IN THE MORNING 30 tablet 08/14/2024 Active citalopram 40 mg oral tablet (20 sources) Serotonin Reuptake Inhibitor Start: 08-28-2024 take 1 tablet by mouth once daily citalopram (CeleXA) 40 MG tablet Indications: Major depressive disorder, recurrent episode, mild Take 1 tablet by mouth once daily 30 tablet 08/28/2024 Active Start: 06-23-2022 take 40 mg by mouth once daily 40 mg, Oral, DAILY, First dose on Wed06/23/22 at 0900, Until Discontinued Start: 09-22-2016 End: 08-10-2024 take 1 tablet by mouth once daily citalopram (CeleXA) 40 MG tablet Indications: Major depressive disorder, recurrent episode, mild Take 1 tablet by mouth once daily 30 tablet 08/28/2024 Active End: 06-26-2022 take 2 tablets by mouth once daily citalopram (CELEXA) 20 MG tablet Take 40 mg by mouth daily 0 06/26/2022 Discontinued (Stop Taking at Discharge) clindamycin 300 mg oral capsule (13 sources) Lincosamide Antibacterial Start: 05-13-2023 End: 05-23-2023 [...] Hcl 150 mg Capsu le Discontinued July 28, 2018 12:00am November 17, 2018 10:14am Start: 07-28-2018 End: 11-17-2018 Clindamycin Hcl Discontinued July 28, 2018 12:00am November 17, 2018 10:14am [facility]-Calcium Alginate-Silver (TEGADERM ALGINATE AG DRESSING) 4 X 5 PADS (3 sources) Start: 06-26-2022 [facility]MC-Calcium Alginate-Silver (TEGADERM ALGINATE AG DRESSING) 4 X 5 PADS Apply 1 each topically daily Right ankle and foot open wounds. Then cover with Kerlex and Olga 25 each 3 06/26/2022 Active Gauze Pads & Dressings (KERLIX GAUZE ROLL MEDIUM) MISC (3 sources) Start: 06-26-2022 Gauze Pads & Dressings (KERLIX GAUZE ROLL MEDIUM) MISC 2 each by Does not apply route daily 96 each 2 06/26/2022 Active glipiZIDE 10 mg oral tablet (20 sources) Sulfonylurea Start: 11-02-2024 take 1 tablet by mouth in the morning glipiZIDE (Glucotrol) 10 MG tablet Indications: Type 2 diabetes mellitus with hyperglycemia, without long-term current use of insulin (HCC) Take 1 tablet (10 mg) by mouth in the morning and 1 tablet (10 mg) in the evening. Take before meals. 180 tablet 3 11/02/2024 Active Start: 06-30-2018 End: 11-01-2024 take 1 tablet by mouth twice daily at bedtime glipiZIDE (Glucotrol) 10 MG tablet Indications: Type 2 diabetes mellitus with hyperglycemia, without long-term current use of insulin (HCC) TAKE 1 TABLET BY MOUTH TWICE DAILY (MORNING AND BEDTIME) 60 tablet 07/03/2024 11/01/2024 Discontinued (Reorder) hydrOXYzine hydrochloride 50 mg oral tablet (20 sources) Antihistamine Start: 09-22-2024 take 1 tablet by mouth four times daily as needed hydrOXYzine HCl (Atarax) 50 MG tablet Indications: Pruritus TAKE 1 TABLET BY MOUTH 4 TIMES DAILY NEEDED FOR ITCHING 30 tablet 09/22/2024 Active Start: 08-30-2024 take 1 tablet by mack th once daily at bedtime Hydroxyzine Hcl 50 mg tablet Active 50 MG PO Daily at bedtime August 30, 2024 12:00am Complies with drug therapy Start: 07-18-2024 End: 07-31-2024 take 1 tablet by mouth four times daily as needed hydrOXYzine HCl (Atarax) 50 MG tablet Indications: Pruritus Take 1 tablet (50 mg) by mouth 4 (four) times a day as needed for itching 120 tablet 5 07/31/2024 Active Start: 02-01-2024 End: 03-13-2024 take 1 tablet [...] sodium hypochlorite 1.25 mg/ ml topical spray (20 sources) Start: 06-26-2022 sodium hypochl orite (DAKINS) [...] 07, 2017 12:00am November 03, 2017 2:58pm Iron (2 sources) Start: 11-09-2022 IRON 65MG TAB IRON 65MG TAB Start Date: 11/09/22 Status: Ordered lisinopril 20 mg oral tablet (20 sources) Angiotensin Converting Enzyme Inhibitor Start: 10-23-2024 take 1 tablet by mouth once daily lisinopril 20 MG tablet Indications: Benign hypertension Take 1 tablet by mouth once daily 30 tablet 10/23/2024 Active Start: 08-28-2024 take 1 tablet by mack th once daily lisinopril 20 MG tablet Indications: Benign hypertension Take 1 tablet by mouth once daily 30 tablet 08/28/2024 Active Start: 07-24-2024 take 1 tablet by mack th once [...] PO Every morning December 07, 2016 12:00am Complies with drug therapy Start: 12-07-2016 take 20 mg by mouth [...] (20 sources) Cholinergic Muscarinic Antagonist Start: 02-13-2023 End: 10-02-2024 take 1 tablet by mouth once daily Oxybutynin Chloride 5 mg Tablet Extended Release 24hr Discontinued 15 MG PO Daily February 13, 2023 1:00am October 02, 2024 10:53am On Hold: not taking Start: 02-13-2023 take 15 mg by mouth once daily Oxybutynin Chloride Active 15 MG PO Daily February 13, 2023 1:00am Start: 11-09-2022 End: [...] 23, 2019 1:00am February 07, 2023 8:56am predniSONE 50 mg oral tablet (3 sources) Start: 01-17-2024 End: 01-23-2024 take 1 tablet by mouth once daily predniSONE (Deltasone) 50 MG tablet Indications: Pruritus Take 1 tablet (50 mg) by mouth Daily for 6 days 6 tablet 01/17/2024 01/23/2024 Active SITagliptin 100 mg oral tablet (20 sources) Dipeptidyl Peptidase 4 Inhibitor Start: 10-23-2024 take 1 tablet by mouth once daily Januvia 100 MG tablet Indications: Type 2 diabetes mellitus with hyperglycemia, without long-term current use of insulin (HCC) Take 1 tablet by mouth once daily 30 tablet 10/23/2024 Active Start: 07-29-2021 take 1 tablet by mack th once daily Januvia 100 MG tablet Indications: Type 2 diabetes mellitus with hyperglycemia, without long-term current use of insulin (HCC) Take 1 tablet by mouth once daily 30 tablet 08/28/2024 Active 1000 ml sodium chloride 9 mg [...] Class(es) Dates Sig (Normalized) Sig (Original) amoxicillin 500 mg / clavulanate 125 mg oral tablet (20 sources) Penicillin-class Antibacterial Start: 12-01-2022 End: 02-07-2023 take 1 tablet by mouth every twelve hours Amoxicillin-Pot Clavulanate 500-125 mg tablet Discontinued 1 TAB PO Q12H December 01, [...] Twice daily October 12, 2017 12:00am October 25, 2017 12:00am October 26, 2017 12:01am betamethasone 0.001 mg/mg topical ointment (9 sources) Corticosteroid Start: 11-17-2018 End: 03-23-2019 Betamethasone Valerate 0.1 % ointment Discontinued 1 APPLIC TOPICAL Daily as needed for skin irritation 45 November 17, 2018 10:49am March 23, 2019 12:03pm use for 2 wks on and 1 wk off to affected area calcium gluconate 1,000 mg in sodium chloride 0.9 % 100 mL IVPB (1 source) Start: 06-22-2022 End: 06-22-2022 calcium gluconate 1,000 mg in sodium chloride 0.9 % 100 mL IVPB cephalexin 500 mg oral capsule (9 sources) Cephalosporin Antibacterial Start: 11-30-2017 End: 12-16-2017 [...] procedure, # 2 tab(s), Refills(s) 0, Pharmacy: [id number], 180, cm, 11/09/22 13:16:00 EDT, Height/Length Dosing, 113, kg, 11/09/22 13:16:00 EDT, Weight Dosing Start Date: 09/17/23 Status: Ordered dicloxacillin 500 mg oral capsule (9 sources) Penicillin-class Antibacterial Start: 06-01-2017 End: 08-24-2017 take 1 capsule by mouth three times daily Dicloxacillin 500 mg Capsule Discontinued 500 MG PO Three times daily June 01, 2017 1:00am August 24, 2017 10:21am doxycycline hyclate 100 mg oral capsule (9 sources) Tetracycline-class Drug Start: 03-23-2019 End: 01-02-2020 take 1 capsule by mouth twice daily Doxycycline Hyclate 100 mg capsule Discontinued 100 MG PO Twice daily 56 March 23, 2019 1:00am January 02, 2020 11:08am fenofibrate 145 mg oral tablet (20 sources) Peroxisome Proliferator Receptor alpha Agonist Start: 02-13-2023 End: 08-30-2024 take 1 tablet by mouth once daily at bedtime Fenofibrate Nanocrystallized 145 mg Tablet Discontinued 145 MG PO Daily at bedtime February 13, 2023 1:00am August 30, 2024 12:16pm Start: 06-23-2022 take 160 mg by mouth once daily 160 mg, Oral, DAILY, First dose on Wed06/23/22 at 0900, Until Discontinued Substituted for Fenofibrate (Non-Formulary Dose). Start: 12-07-2016 End: 11-19-2020 Fenofibrate 150 mg Capsule Discontinued 145 MG PO Daily at bedtime December 07, 2016 12:00am November 19, 2020 11:09am Start: 12-07-2016 End: 11-19-2020 take 145 mg by mouth once daily at bedtime Fenofibrate Discontinued 145 MG PO Daily at bedtime December 07, 2016 12:00am November 19, 2020 11:09am Start: 09-22-2016 End: 02-07-2023 take 1 tablet by mouth once daily at bedtime Fenofibrate Nanocrystallized 145 mg tablet Discontinued 145 MG PO Daily at bedtime November 19, 2020 12:00am February 07, 2023 4:16pm ferrous sulfate 325 mg oral tablet (10 sources) Start: 10-27-2022 End: 05-04-2023 take 1 tablet by mouth once daily Ferrous Sulfate 325 mg (65 mg iron) tablet Discontinued 325 MG PO Daily October 27, 2022 12:00am May 04, 2023 12:25pm Start: 06-26-2022 take 1 tablet by mack th once daily at breakfast ferrous sulfate (IRON 325) 325 (65 Fe) MG tablet Take 1 tablet by mouth daily (with breakfast) 90 tablet 1 06/26/2022 Active gentamicin 0.001 mg/mg topic al ointment (18 sources) Start: 11-23-2017 End: 05-19-2018 Gentamicin 0.1 % ointment Discontinued 1 APPLIC TOPICAL Daily November 23, 2017 12:00am May 19, 2018 12:36pm apply to ulcers as directed Start: 04-08-2017 End: 11-02-2017 Gentamicin 0.1 % ointment Di scontinued 1 APPLIC TOPICAL Daily April 08, 2017 1:00am November [...] insulin aspart, human 100 unt/ml injectable solution (14 sources) Insulin Analog Start: 12-07-2016 End: 05-19-2018 Insulin Aspart U-100 (Novolo g) 100 unit/mL Solution Discontinued 1 UNITS SUBCUT THREE TIMES DAILY WITH MEALS Protocol: *NOT APPROPRIATE TO USE SCALE IF LESS THAN 3 HOURS SINCE PREVIOUS MEAL AND SCALE DOSE* Condition: Corrective Scale #1 (TDI Condition: Dose/Route: Instructions: Condition: Fingerstick Blood Glucose Dose/Route: Insulin Units Condition: 150-199 mg/dl Dose/Route: 1 unit Condition: 200-249 mg/dl Dose/Route: 2 unit Condition: 250-299 mg/dl Dose/Route: 3 unit Condition: 300-349 mg/dl Dose/Route: 4 unit Condition: 350-400 mg/dl Dose/Route: 5 unit Condition: greater than 400 mg/dl Dose/Route: 6 unit Instructions: Call Provider December 07, 2016 12:00am May 19, 2018 12:36pm Patient not sure of actual corrective scale but felt this was correct Please contact the information source for Protocol details. Start: 12-07-2016 End: 05-19-2018 inject 1 [IU] [...] Active insulin glargine 100 unt/ml injectable solution (9 sources) Insulin Analog Start: 04-13-2017 End: 06-26-2022 insulin glargine (LANTUS) 100 UNIT/ML injection vial Inject 45 Units into the skin 2 times daily 1 vial 3 04/13/2017 06/26/2022 Discontinued (Stop Taking at Discharge) Start: 12-07-2016 End: 09-08-2022 inject 50 [IU] by subcutaneous injection twice daily Insulin Glargine (Lantus) 100 unit/mL Solution Discontinued 50 UNITS SUBCUT Twice daily December 07, 2016 12:00am September 08, 2022 11:16am Start: 10-14-2016 inject 40 [IU] by paul bcutaneous injection twice daily insulin glargine (LANTUS) 100 unit/mL injection Inject 40 Units under the skin 2 (two) times a day. 10/14/2016 Active Insulin Glargine (Lantus) 100 unit/mL Solution (8 sources) Start: 12-07-2016 End: 09-08-2022 inject 50 [...] ml insulin lispro 100 unt/ml pen injector (3 sources) Insulin Analog Start: 05-19-2018 End: 09-08-2022 Insulin Lispro (Humalog Kwikpen Insulin) 100 unit/mL Insulin Pen Discontinued 0 .ROUTE .COMPLEX May 19, 2018 1:00am September 08, 2022 11:16am SLIDING SCALE Insulin Lispro (Humalog Kwikpen Insulin) 100 unit/mL Insulin Pen (6 sources) Start: 05-19-2018 End: 09-08-2022 Insulin Lispro [...] 10 Units levoFLOXacin 750 mg oral tablet (20 sources) Quinolone Antimicrobial Start: 02-13-2023 End: 05-04-2023 take 1 tablet by mouth once daily Levofloxacin 750 mg Tablet Discontinued 750 MG PO Daily February 13, 2023 1:00am May 04, 2023 12:23pm Start: 12-01-2022 End: 02-07-2023 take 1 tablet by mouth once daily Levofloxacin 500 mg tablet Discontinued 500 MG PO Daily December 01, 2022 12:00am February 07, 2023 4:16pm Start: 10-16-2021 End: 11-18-2021 take 1 tablet by mouth once daily Levofloxacin 750 mg Tablet Discontinued 750 MG PO Daily October 16, 2021 12:00am November 18, 2021 11:49am x6 weeks, Called to pharmacy 09/09/2021 polyethylene glycol 3350 28036 mg powder for oral solution (1 source) Osmotic Laxative Start: 06-22-2022 17 g, Oral, D AILY PRN, Starting on Wed06/22/22 at 2018, Until Discontinued, Constipation First line therapy for constipation polyethylene glycol 3350 [id number] mg / potassium chloride 2970 mg / sodium bicarbonate 6740 mg / sodium chloride 5860 mg / sodium sulfate 65147 mg powder for oral solution (1 source) Osmotic Laxative Start: 06-25-2022 End: 06-25-2022 polyethylene glycol (GoLYTELY) solution 4,000 mL Start: 06-25-2022 End: 06-25-2022 polyethylene glycol (GoLYTEL Y) solution 4,000 mL rosuvastatin calcium 20 mg oral tablet (17 sources) HMG-CoA Reductase Inhibitor Start: 06-07-2016 End: 06-26-2022 take 1 tablet by mouth once daily Rosuvastatin (Crestor) 20 mg Tablet Discontinued 20 MG PO Daily December 07, 2016 12:00am March 23, 2019 12:03pm silver sulfADIAZINE 10 mg/ml topical cream (9 sources) Sulfonamide Antibacterial Start: 09-22-2018 End: 03-23-2019 Silver Sulfadiazine (Silvadene) 1 % cream Discontinued 1 APPLIC TOPICAL Daily 400 September 22, 2018 12:00am March 23, 2019 12:03pm apply a 1.5 mm thickness sodium polystyrene sulfonate 250 mg/ml oral suspension (1 source) Start: 06-22-2022 End: 06-22-2022 sodium polystyrene (KAYEXALATE) 15 GM/60ML suspension 45 g sodium zirconium cyclosilicate 39615 mg powder for oral suspension (1 source) Start: 06-23-2022 End: 06-23-2022 sodium zirconium cyclosilicate (LOKELMA) oral suspension 10 g sulfamethoxazole 800 mg / trimethoprim 160 mg oral tablet (20 sources) Dihydrofolate Reductase Inhibitor Antibacterial, Sulfonamide Antimicrobial [...] 10:21am Start: 12-07-2016 End: 12-08-2016 Bactrim Discontinued [facility] 2016 12:00am December 08, 2016 2:50pm Start: 12-07-2016 End: 12-08-2016 [facility] 11:00pm December 08, 2016 1:50pm triamcinolone acetonide 5 mg/ml topical cream (7 sources) Corticosteroid Start: 02-07-2023 End: 05-04-2023 Triamcinolone Acetonide 0.5 % cream Discontinued 0.5 APPLIC TOPICAL Three times daily February 07, 2023 1:00am May 04, 2023 12:25pm Problems Active Problems Problem Classification Problem Date Documented Date Episodic/Chronic Chronic kidney disease (20 sources) Chronic kidney disease; 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: [Chronic kidney disease, unspecified] Onset: 4 06-30-2018 Chronic Chronic ulcer of skin (20 sources) Non-pressure chronic ulcer of skin of other sites with other specified severity; 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: [Pressure ulcer of unspecified site, unspecified stage] Onset: 4 Resolved: 8 12-10-2016 Chronic Complication of device; implant or graft (19 sources) Injury of cauda equina ; Translations: [...] Anemia 11-09-2022 Episodic Deficiency and other anemia (7 sources) Microcytic anemia; Translations: [Iron deficiency anemia, unspecified] 02-07-2023 Episodic Diabetes mellitus with complications (20 sources) Type 2 diabetes mellitus with hyperglycemia; Translations: [Diabetic foot ulcer] Onset: 2 Chronic Diabetes mellitus without complication (18 sources) Diabetes mellitus; Translations: [Type 2 diabetes [...] use a ffected kidneys Gastritis and duodenitis (20 sources) Chronic superficial gastritis; Translations: [Chronic superficial [...] disorder; Translations: [Depression] Onset: 4 12-24-2016 Chronic Open wounds of extremities (15 sources) Open wound of lower limb with complication; Translations: [Unspecified open wound, unspecified knee, initial encounter] Onset: 1 01-07-2017 Episodic Other aftercare (1 source) [facility] (current) use of insulin; 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] Onset: 5 Episodic Other diseases of bladder and urethra [...] injuries and conditions due to external causes (9 sources) Injury of cauda equina ; Translations: [Injury of cauda equina, subsequent encounter] 06-01-2017 Episodic Other injuries and conditions due to external causes (1 source) Other injury of unspecified body region, initial encounter; Translations: [Other injury of unspecified body region, initial encounter] Onset: 5 Episodic Other injuries and conditions due to external causes (1 source) Injury of cauda equina, subsequent encounter; Translations: [Injury of cauda equina, subsequent encounter] Onset: 5 Episodic Other nervous system disorders (9 sources) Acute postoperative pain; Translations: [Other acute postprocedural pain] 09-04-2021 Episodic Other nervous system disorders (1 source) Other acute postprocedural pain; Translations: [Other acute postprocedural pain] Onset: 5 Episodic Other non-traumatic joint disorders (6 sources) Pain in right hip; Translations: [Pain in joint, pelvic region and thigh] Onset: 2 Episodic Other non-traumatic joint disorders (9 sources) Hip pain; Translations: [Pain in right hip] 01-27-2022 Episodic Other nutritional; endocrine; and metabolic disorders (9 sources) Obesity; Translations: [Obesity, unspecified] 09-23-2017 Chronic Other nutritional; endocrine; and metabolic disorders (5 sources) Morbid obesity; Translations: [Morbid (severe) obesity due to excess calories] Onset: 7 01-01-2017 Chronic Other nutritional; endocrine; and metabolic disorders (11 sources) Severe obesity; Translations: [Class 2 severe obesity due to excess calories with serious comorbidity and body mass index (BMI) of 36.0 to 36.9 in adult ([facility])] Onset: 5 07-31-2024 Chronic Other screening for suspected conditions (not mental disorders or infectious disease) (4 sources) Electrocardiogram abnormal; Translations: [Abnormal electrocardiogram [ECG] [EKG]] Onset: 3 Episodic Paralysis (20 sources) Cauda equina syndrome; Translations: [Cauda equina syndrome] Onset: 1 04-30-2020 Chronic Peripheral and visceral atherosclerosis (8 sources) Peripheral vascular disease, unspecified; Translations: [Peripheral arterial disease] Onset: 5 02-07-2023 Chronic Residual codes; unclassified (2 sources) Sleep apnea 11-09-2022 Chronic Residual codes; unclassified (20 sources) Obstructive sleep apnea syndrome; Translations: [Obstructive sleep apnea (adult) (pediatric)] Onset: 4 04-06-2023 Chronic Residual codes; unclassified (9 sources) Pain; Translations: [Pain, unspecified] 05-19-2018 Episodic Residual codes; unclassified (3 sources) Bilateral lower limb edema; Translations: [Localized edema] 08-30-2024 Episodic Residual codes; unclassified (1 source) Localized edema; Translations: [Edema] 08-30-2024 Episodic Skin and subcutaneous tissue infections (20 sources) Cellulitis, unspecified; Translations: [Cellulitis] Onset: 1 Resolved: 8 04-20-2019 Episodic Spondylosis; intervertebral disc disorders; other back problems (7 sources) Sacral back pain; Translations: [Sacrococcygeal disorders, not elsewhere classified] 09-08-2022 Episodic Past or Other Problems Problem Classification Problem Date Documented Date Episodic/Chronic Acute and unspecified renal failure (16 sources) Uxhqu-ya-acxstjl renal failure; Translations: [Acute kidney failure, unspecified] Onset: 12-30-2016 12-30-2016 Episodic Allergic reactions (20 sources) Urticaria; Translations: [Urticaria, unspecified] Onset: 01-20-2024 01-20-2024 Episodic Bacterial infection; unspecified site (15 sources) Infection due to enterococcus; Translations: [Enterococcus as the cause of diseases classified elsewhere] Onset: 12-28-2016 12-28-2016 Episodic Deficiency and other anemia (1 source) Iron deficiency anemia, unspecified; Translations: [Iron deficiency anemia, unspecified] Onset: 06-26-2022 Episodic Fluid and electrolyte disorders (13 sources) Hyponatremia; Translations: [Hypo-osmolality and hyponatremia] Onset: 04-25-2015 04-25-2015 Episodic Other aftercare (17 sources) Long-term current use of drug therapy; 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: [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] Onset: 11-18-2023 11-18-2023 Episodic Other aftercare (5 sources) Patient encounter status; Translations: [Other intermediate (current) drug therapy] Onset: 11-18-2023 11-18-2023 Episodic Other inflammatory condition of skin (20 sources) Pruritus, unspecified; Translations: [Unspecified pruritic disorder] Onset: 11-18-2023 Resolved: 01-20-2024 11-18-2023 Episodic Other skin disorders (20 sources) Vesicular eczema; Translations: [Dyshidrosis [pompholyx]] Onset: 04-06-2023 04-06-2023 Episodic Septicemia (except in labor) (5 sources) Sepsis due to methicillin resistant Staphylococcus aureus; Translations: [Sepsis due to Methicillin resistant Staphylococcus aureus] Onset: 09-09-2016 Resolved: 05-26-2017 05-26-2017 Episodic Urinary tract infections (20 sources) Recurrent urinary tract infection; Translations: [Urinary tract infection, site not specified] Onset: 04-06-2023 04-06-2023 Episodic Results Test Name Value Interpretation Reference Range Facility Reminderson 10-05-2024 Reminders Reminders From: Ama Arteaga To: [place] - Recalls [place]; Sent: 11/15/2023 16:29:55 EDT Show up: 08/27/2024 16:29:00 EDT Subject: Cysto/UD Due Date/Time: 09/18/2024 16:29:00 EDT Reminder/Recall Patient is due in October 2024 for 1 year cysto/UD w [facility]arte sounds l/m on vm to return call.LG Normal [facility] Aerobic Cultureon 10-02-2024 Aerobic Culture Comment Left Hip Tis eileen Culture ORGANISM: Strep dysgalactiae (O:STRDYS) Comments Organism Not Routinely Tested for Susceptibilities Quantity of Growth Moderate Growth ORGANISM: Corynebacterium striatum group (O:CORSTRGP) Comments Organism Not Routinely Tested for Susceptibilities Quantity of Growth Light Growth ORGANISM: Pseudomonas aeruginosa (O:PSEAER) Quantity of Growth Rare Growth Comment Left Hip Tissue Culture ORGANISM: Prevotella disiens (O:PREDIS) Quantity of Growth Heavy Growth Please contact Microbiology within 7 days if anaerobic susceptibilities are needed. Comment Left Hip Tissue Culture Gram Stain Result No White Blood Cells Seen No Bacteria Seen Aerobic RENAN Charge (NMIC56) SUSCEPTIBILITY ORGANISM: O:PSEAER ANTIBIOTIC INTERPRETATION RENAN Amikacin S <16 Aztreonam I <4 Cefepime S <2 Ceftazidime I 4 Ceftazidime/Avibactam S <4 Ceftolozane/Tazobactam S <2 Ciprofloxacin S <0.25 Gentamicin S <2 Levofloxacin S <0.5 Meropenem S <1 Piperacillin/Tazobactam I <8 Tobramycin S <2 S = SUSCEPTIBLE [...] RESISTANT TO ALL B-LACTAM DRUGS. PERFORMED BY: [place] [address] PATHOLOGIST PROPULSION MACHINERY SERVICE ENGINEER LEXA ELLIOTT M.D. Normal [facility] Comment on above: Performed By: #### A ERC #### [address] Basic Metabolic Panelon 07-0 Creatinine Clr Calc Pharmacy 54.42 Normal [facility] Comment on above: Result Comment: PERF ORMED BY: [address] [place] [address] PATHOLOGIST PROPULSION MACHINERY SERVICE ENGINEER LEXA ELLIOTT M.D. Performed By: #### C CHINTAN, BMP #### [address] GFR/1.73 sq M.predicted MDRD (S/P/Bld) [Vol rate/Area] 45.056 mL/min/{1.73_m2} Normal The [facility] Comment on above: Performed By: #### C CHINTAN, BMP #### [address] Basophils [#/volume] in Bloo d by Automated countOrdered By: Rafi Cai on 10-02-2024 Basophils (Bld) [#/Vol] 0.1 10*3/uL Normal 0.0-0.2 [facility] Comment on above: Result Comment: PERF ORMED BY: [place] [address] PATHOLOGIST PROPULSION MACHINERY SERVICE ENGINEER LEXA ELLIOTT M.D. Performed By: #### C CHINTAN, BMP #### [address] Basophils/100 leukocytes in Blood by Automated countOrdered By: Rafi Cai on 10-02-2024 Basophils/100 WBC (Bld) 0.6 % Normal . [facility] Comment on above: Performed By: #### C CHINTAN, BMP #### [address] Calcium [Mass/volume] in Ser um or PlasmaOrdered By: Rafi Cai on 10-02-2024 Calcium [Mass/Vol] 8.3 mg/dL Low 8.6-10.3 [facility] Comment on above: Performed By: #### C CHINTAN, BMP #### [address] Capillary blood glucose linda urement by glucometer (mass/volume)Ordered By: Cathy Brar on 10-02-2024 Glucose [Mass/Vol] 74 mg/dL Normal [facility] Comment on above: Random Glucose Refer ence Range is dependent on time and content of last meal. Glucose of more than 200 mg/dL in a nonstressed, ambulatory subject supports the diagnosis of Diabetes Mellitus. Result Comment: [place] Glucose Reference Range is dependent on time and content of last meal. Glucose of more than 200 mg/dL in a nonstressed, ambulatory subject supports the diagnosis of Diabetes Mellitus. PERFORMED BY: [place] [address] PATHOLOGIST PROPULSION MACHINERY SERVICE ENGINEER LEXA ELLIOTT M.D. Performed By: #### G BHARATI #### Point of Care testing , Carbon dioxide, total [Moles /volume] in Serum or PlasmaOrdered By: Rafi Cai on 10-02-2024 CO2 [Moles/Vol] 24.7 mmol/L Normal 21.0-31.0 [facility] Comment on above: Performed By: #### C BC, BMP #### [address] Chloride [Moles/volume] in S tremayne or PlasmaOrdered By: Rafi Cai on 10-02-2024 Chloride [Moles/Vol] 109 mmol/L High 98-107 [facility] Comment on above: Performed By: #### C CHINTAN, BMP #### [address] Complete Blood Count Auto Di ffon 10-02-2024 Mean Corpuscular HGB Conc 32.2 g/dL Low 32.5-35.6 [facility] Comment on above: Performed By: #### C BC, BMP #### [address] NRBC% 0.0 /100{WBC} Normal 0-0.5 [facility] Comment on above: Performed By: #### C BC, BMP #### [address] White Blood Count 13.7 [CFU]/mL High 4.1-10.5 [facility] Comment on above: Performed By: #### C BC, BMP #### [address] Creatinine [Mass/volume] in Serum or PlasmaOrdered By: Rafi Cai on 10-02-2024 Creatinine [Mass/Vol] 1.69 mg/dL High 0.70-1.30 [facility] Comment on above: Performed By: #### C BC, BMP #### [facility] [address] [place] [address] [place] ECG 12 lead ECGon 10-02-2024 ECG 12 lead ECG [facility] [place] [address] [place] [address] Electrocardiograph Report Signed Patient: Ganga Stinson MR#: [id number] : 1960 Acct:[id number] Age/Sex: 64 / M ADM Date: 10/02/24 Loc: [place] Room: Type: [facility] Attending Dr: Cathy Brar MD Ordering Provider: Rafi Cai MD Date of Service: 10/02/2410/20/1032 ECG/ECG 12 lead ECG: pre-op Copies to: Test Reason : Blood Pressure : */* mmHG Vent. Rate : 55 BPM Atrial Rate : 55 BPM P-R Int : 172 ms QRS Dur : 100 ms QT Int : 458 ms P-R-T Axes : 60 9 26 degrees QTcB Int : 438 ms Sinus bradycardia Otherwise normal ECG When compared with ECG of 10-Feb-2023 08:56, No significant change was found Confirmed by Jese Whitley ([id number]) on 10/02/2024 4:24:29 PM Referred By: Electronically Signed By: Jese Whitley Transcribed By: MUS Signed By Jese Whitley MD 10/02/24 1624 Normal [facility] Eosinophils [#/volume] in Bl ood by Automated countOrdered By: Rafi Cai on 10-02-2024 Eosinophils (Bld) [#/Vol] 1.2 10*3/uL High 0.0-0.45 [facility] Comment on above: Performed By: #### C CHINTAN, BMP #### [facility] [address] [place] [address] [place] Eosinophils/100 leukocytes i n Blood by Automated countOrdered By: Rafi Cai on 10-02-2024 Eosinophils/100 WBC (Bld) 8.7 % Normal . [facility] Comment on above: Performed By: #### C CHINTAN, BMP #### [facility] [address] Erythrocyte distribution wid th [Ratio] by Automated countOrdered By: Rafi Cai on 10-02-2024 Erythrocyte distribution width (RBC) [Ratio] 15.3 % High 12.0-14.8 [facility] Comment on above: Performed By: #### C CHINTAN, BMP #### [facility] [address] Erythrocytes [#/volume] in B lood by Automated countOrdered By: Rafi Cai on 10-02-2024 RBC (Bld) [#/Vol] 2.89 10*6/uL Low 3.90-5.60 [facility] Comment on above: Performed By: #### C CHINTAN, BMP #### [facility] [address] GLUCOSE POCT GLUCOMETERSon 0 10-02-2024 Glucose [Mass/Vol] 74 mg/dL [facility] Comment on above: Random Glucose Refer ence Range is dependent on time and content of last meal. Glucose of more than 200 mg/dL in a nonstressed, ambulatory subject supports the diagnosis of Diabetes Mellitus. [facility] COMMEMT1 Glu2: Cleaned Meter [facility] Glucose [Mass/Vol] 77 mg/dL [facility] Comment on above: Random Glucose Refer ence Range is dependent on time and content of last meal. Glucose of more than 200 mg/dL in a nonstressed, ambulatory subject supports the diagnosis of Diabetes Mellitus. [facility] Glucose Poct Glucometerson 0 10-02-2024 Commemt1 Glu2: Cleaned Meter Normal The [facility] Comment on above: Result Comment: PERF ORMED BY: [place] [address] PATHOLOGIST PROPULSION MACHINERY SERVICE ENGINEER LEXA ELLIOTT M.D. Performed By: #### G LULS #### Point of Care testing , Glucose [Mass/Vol] 77 mg/dL Normal The [facility] Comment on above: Result Comment: [place] om Glucose Reference Range is dependent on time and content of last meal. Glucose of more than 200 mg/dL in a nonstressed, ambulatory subject supports the diagnosis of Diabetes Mellitus. Performed By: #### G BHARATI #### Point of Care testing , Glucose [Mass/volume] in Ser um or PlasmaOrdered By: Rafi Cai on 10-02-2024 Glucose [Mass/Vol] 72 mg/dL Normal 70-100 [facility] Comment on above: ADA recommended refe rence rangeRandom Glucose Reference Range is dependent on time and content of last meal. Glucose of more than 200 mg/dL in a nonstressed, ambulatory subject supports the diagnosis of Diabetes Mellitus. Result Comment: [place] om Glucose Reference Range is dependent on time and content of last meal. Glucose of more than 200 mg/dL in a nonstressed, ambulatory subject supports the diagnosis of Diabetes Mellitus. ADA recommended reference range Performed By: #### C CHINTAN, BMP #### [address] Hematocrit [Volume Fraction] of Blood by Automated countOrdered By: Rafi Cai on 10-02-2024 Hematocrit (Bld) [Volume fraction] 23.0 % Low 38.8-50.0 [facility] Comment on above: Performed By: #### C CHINTAN, BMP #### [address] Hemoglobin [Mass/volume] in BloodOrdered By: Rafi Cai on 10-02-2024 Hemoglobin (Bld) [Mass/Vol] 7.4 g/dL Low 13.0-17.0 [facility] Comment on above: Performed By: #### C CHINTAN, BMP #### [address] Martín 10-02-2024 L ------ Specimen: [id number] Received: 10/02/24 Status: ROSIO Rajput Num: [id number] Spec Type: Surgical Subm Dr: Cathy Brar MD Tissues: A Debridement-Skin/Other Than Skin (PRODUCTS OF DEBRIDEMENT) Procedures: ISMA Gross/Micro L3 Age/ Patient Sex Location Account Attending Physician Ganga Stinson/Sam [place] [id number] Cathy Brar MD SPEC NUM: [id number] RECD: 10/02/24 STATUS: ROSIO RAJPUT NUM: [id number] NAYLA: 10/02/24 [facility] DR: Cathy Brar MD ENTERED: 10/02/[address] [facility] [address]: SPEC TYPE: Surgical DEPT: S ENTERED BY: [id number] RECV BY: [id number] ORDERED: ISMA Gross/Micro L3 ORDERED: ISMA Gross/Micro L3 Pathological Diagnosis Left hip ulcer, debridement, excision: - Skin and soft tissue with ulceration and mixed acute on chronic inflammation. - No evidence of malignancy identified. Clinical Information Left hip ulcer. Gross Description Received in formalin labeled with the patients name, date of , and left hip ulcer, products of debridement are osborne-pardo to pink, rubbery tissue fragments, 2 x 1.5 x 0.7 cm in aggregate. Serial sections reveal osborne-pink to yellow, dull and uniform cut surfaces. Loader Demolder sections are submitted in a single cassette. (1, ss, [id number]) Microscopic Description Microscopic examination is performed. CPT Codes 63287 Specimen: [id number] Received: 10/02/24 Status: ROSIO Matti Num: [id number] Spec Type: Surgical Subm Dr: Cathy Brar MD Tissues: A Debridement-Skin/Other Than Skin (PRODUCTS OF DEBRIDEMENT) Procedures: ISMA Gross/Margo L3 Patient: Ganga Stinson [id number] (Continued) Signed (signature on file) Zak Brasher MD 10/04/24 0918 Normal [facility] Leukocytes [#/volume] correc shreya for nucleated erythrocytes in Blood by Automated counOrdered By: Rafi Cai on 10-02-2024 WBC corrected for nucl RBC Auto (Bld) [#/Vol] 13.7 10*3/uL High 4.1-10.5 [facility] Leukocytes [#/volume] in Blo od by Automated countOrdered By: Rafi Cai on 10-02-2024 WBC (Bld) [#/Vol] 13.7 10*3/uL High 4.1-10.5 [facility] Comment on above: Performed By: #### C BC, BMP #### [facility] [address] [place] [address] [place] Lymphocytes [#/volume] in Bl ood by Automated countOrdered By: Rafi Cai on 10-02-2024 Lymphocytes (Bld) [#/Vol] 1.5 10*3/uL Normal 1.00-4.8 [facility] Comment on above: Performed By: #### C BC, BMP #### [facility] [address] [place] [address] [place] Lymphocytes/100 leukocytes i n Blood by Automated countOrdered By: Rafi Cai on 10-02-2024 Lymphocytes/100 WBC (Bld) 11.2 % Normal . [facility] Comment on above: Performed By: #### C BC, BMP #### [facility] [address] [place] [address] [place] MCH [Entitic mass] by Automa shreya countOrdered By: Rafi Cai on 10-02-2024 MCH (RBC) [Entitic mass] 25.6 pg Low 27.5-35.2 [facility] Comment on above: Performed By: #### C BC, BMP #### [facility] [address] [place] [address] MCHC Auto (RBC) [Mass/Vol]Or dered By: Rafi Cai on 10-02-2024 MCHC (RBC) [Mass/Vol] 32.2 g/dL Low 32.5-35.6 [facility] MCV [Entitic volume] by Auto mated countOrdered By: Rafi Cai on 10-02-2024 MCV (RBC) [Entitic vol] 79.5 fL Low 83.5-101 [facility] Comment on above: Performed By: #### C BC, BMP #### [facility] [address] [place] [address] Monocytes [#/volume] in Bloo d by Automated countOrdered By: Rafi Cai on 10-02-2024 Monocytes (Bld) [#/Vol] 1.1 10*3/uL High 0.0-0.8 [facility] Comment on above: Performed By: #### C BC, BMP #### [facility] [address] [place] [address] [place] Monocytes/100 leukocytes in Blood by Automated countOrdered By: Rafi Cai on 10-02-2024 Monocytes/100 WBC (Bld) 8.3 % Normal . [facility] Comment on above: Performed By: #### C BC, BMP #### [facility] [address] [place] [address] [place] Neutrophils [#/volume] in Bl ood by Automated countOrdered By: Rafi Cai on 10-02-2024 Neutrophils (Bld) [#/Vol] 9.8 10*3/uL High 1.8-7.7 [facility] Comment on above: Performed By: #### C BC, BMP #### [facility] [address] [place] [address] [place] Neutrophils/100 leukocytes i n Blood by Automated countOrdered By: Rafi Cai on 10-02-2024 Neutrophils/100 WBC (Bld) 71.2 % Normal . [facility] Comment on above: Performed By: #### C BC, BMP #### [facility] [address] [place] [address] No Panel InformationOrdered By: Rafi Cai on 10-02-2024 Estimated GFR (CKD-EPI) 45.056 mL/Min [facility] Creatinine Clearance (Chem 54.42 [facility] No Panel InformationOrdered By: Cathy Brar on 10-02-2024 Bedside Glucose Comment Glu2: cleaned meter [facility] Nucleated erythrocytes [Pres ence] in Blood by Automated countOrdered By: Rafi Cai on 10-02-2024 Nucleated RBC Auto Ql (Bld) 0.0 /100{WBC} 0-0.5 [facility] Platelet mean volume [Entiti c volume] in Blood by Automated countOrdered By: Rafi Cai on 10-02-2024 Platelet mean volume (Bld) [Entitic vol] 6.2 fL Low 6.6-10.1 [facility] Comment on above: Performed By: #### C BC, BMP #### [address] Platelets [#/volume] in Bloo d by Automated countOrdered By: Rafi Cai on 10-02-2024 Platelets (Bld) [#/Vol] 339 10*3/uL Normal 150-450 [facility] Comment on above: Performed By: #### C BC, BMP #### [address] Potassium [Moles/volume] in Serum or PlasmaOrdered By: Rafi Cai on 10-02-2024 Potassium [Moles/Vol] 3.7 mmol/L Normal 3.5-5.1 [facility] Comment on above: Performed By: #### C BC, BMP #### [address] Serum or plasma anion gap de terminationOrdered By: Rafi Cai on 10-02-2024 Anion gap [Moles/Vol] 8.0 mmol/L Normal 6.0-15.0 [facility] Comment on above: Performed By: #### C BC, BMP #### [address] [place] [address] [place] Sodium [Moles/volume] in Ser um or PlasmaOrdered By: Rafi Cai on 10-02-2024 Sodium [Moles/Vol] 138 mmol/L Normal 136-145 [facility] Comment on above: Performed By: #### C CHINTAN, BMP #### [facility] [address] Urea nitrogen [Mass/volume] in Serum or PlasmaOrdered By: Rafi Cai on 10-02-2024 Urea nitrogen [Mass/Vol] 25 mg/dL Normal 7-25 [facility] Comment on above: Performed By: #### C CHINTAN, BMP #### [facility] [address] ALL CBC WITH AUTO DIFFon BASOPHILS ABSOLUTE AUTO 0 [facility] Basophils/100 WBC (Bld) 0.3 % 0.2 - 2.0 % [facility] Eosinophils/100 WBC (Bld) 9.5 % High 0.9 - 7.0 % [facility] Erythrocyte distribution width (RBC) [Ratio] 14.3 % 11.0 - 15.0 % [facility] Hematocrit (Bld) [Volume fraction] 23.2 % Critically low 42.0 - 54.0 % [facility] Comment on above: RESULTS CALLED TO NICHOL SWAN RN Hemoglobin (Bld) [Mass/Vol] 7.4 g/dL Low 14.0 - 18.0 g/dL [facility] IMMATURE GRANULOCYTES ABS AUTO 0.07 High [facility] Immature granulocytes/100 WBC (Bld) 0.5 % 0.0 - 0.5 % [facility] Interpretation and review of laboratory results Abnormal [facility] LYMPHOCYTES ABSOLUTE AUTO 1.8 [facility] Lymphocytes/100 WBC (Bld) 13.3 % Low 20.5 - 60.0 % [facility] MCH (RBC) [Entitic mass] 26.6 pg 25.9 - 34.0 pg [facility] MCHC (RBC) [Mass/Vol] 31.9 g/dL 29.9 - 35.2 g/dL [facility] MCV (RBC) [Entitic vol] 83.5 fL 80.0 - 94.0 fL [facility] MONOCYTES ABSOLUTE AUTO 1.1 High [facility] Monocytes/100 WBC (Bld) 7.8 % 1.7 - 12.0 % [facility] NEUTROPHILS ABSOLUTE AUTO 9.3 High [facility] Neutrophils/100 WBC (Bld) 68.6 % 43.0 - 75.0 % [facility] Platelet mean volume (Bld) [Entitic vol] 8.8 fL Low 9.5 - 13.5 fL [facility] EO # 1.3 High [facility] PLT 306 [facility] RBC 2.78 Low [facility] WBC 13.5 High [facility] CLINISY[facility] ALL CBC WITH AUTO DIFFon BASOPHILS ABSOLUTE AUTO 0.1 [facility] Basophils/100 WBC (Bld) 0.4 % 0.2 - 2.0 % [facility] Eosinophils/100 WBC (Bld) 9 % High 0.9 - 7.0 % [facility] Erythrocyte distribution width (RBC) [Ratio] 14.5 % 11.0 - 15.0 % [facility] Hematocrit (Bld) [Volume fraction] 23.8 % Critically low 42.0 - 54.0 % [facility] Comment on above: RESULTS CALLED TO TABBY RUBALCAVA RN at 1219 Hemoglobin (Bld) [Mass/Vol] 7.4 g/dL Low 14.0 - 18.0 g/dL [facility] IMMATURE GRANULOCYTES ABS AUTO 0.08 High [facility] Immature granulocytes/100 WBC (Bld) 0.6 % High 0.0 - 0.5 % [facility] Interpretation and review of laboratory results Abnormal [facility] LYMPHOCYTES ABSOLUTE AUTO 1.6 [facility] Lymphocytes/100 WBC (Bld) 12.9 % Low 20.5 - 60.0 % [facility] MCH (RBC) [Entitic mass] 26.3 pg 25.9 - 34.0 pg [facility] MCHC (RBC) [Mass/Vol] 31.1 g/dL 29.9 - 35.2 g/dL [facility] MCV (RBC) [Entitic vol] 84.7 fL 80.0 - 94.0 fL [facility] MONOCYTES ABSOLUTE AUTO 0.9 High [facility] Monocytes/100 WBC (Bld) 7.2 % 1.7 - 12.0 % [facility] NEUTROPHILS ABSOLUTE AUTO 8.9 High [facility] Neutrophils/100 WBC (Bld) 69.9 % 43.0 - 75.0 % [facility] Platelet mean volume (Bld) [Entitic vol] 8.7 fL Low 9.5 - 13.5 fL [facility] TBH EO # 1.2 High [facility] PLT 295 [facility] TB RBC 2.81 Low [facility] WBC 12.7 High [facility] US ankle/arm indiceson 09-05 US ankle/arm indices [facility] [address] [place] [address] Ultrasound Report Signed Patient: Ganga Stinson MR#: [id number] : 1960 Acct:[id number] Age/Sex: 64 / M ADM Date: 08/30/24 Loc: [facility] Room: Type: [facility] Attending Dr: Jesusita Navarro MD Ordering Provider: Jesusita Navarro MD Date of Service: 08/30/24 US/US ankle/arm indices: I73.9 - Peripheral vascular disease, unspecified Copies to: Jesusita Navarro MD LOWER EXTREMITY SEGMENTAL ARTERIAL DOPSCAN (PVR) INDICATION: Feet PROCEDURE: Right arm blood pressure is 107 , left is 105 . Pressures at the right ankle are cno using the posterior tibial artery, and 208 using the dorsalis pedis artery with ankle-brachial index of -NC- 1.94 . Pressures at the left ankle are 121 using the posterior tibial artery, and 150 with ankle-brachial index of 1.13 1.40 . Wave forms by plethysmography are normal. US/US ankle/arm indices IMPRESSION: NO HEMODYNAMICALLY SIGNIFICANT PERIPHERAL VASCULAR OCCLUSIVE DISEASE AT REST IN EITHER LOWER EXTREMITY. Impression dictated by: Jesusita Navarro MD,FACS,FSVS 09/05/2024 12:35 PM Dictation Location: [place] [address] Tech: Livia Kenn Transcribed By: MARYANN 09/05/24 1235 Dictated By: Jesusita Navarro MD 09/05/24 1234 Signed By: 09/05/24 1235 Normal [facility] ALL CBC WITH AUTO DIFFon BASOPHILS ABSOLUTE AUTO 0.1 [facility] Basophils/100 WBC (Bld) 0.4 % 0.2 - 2.0 % [facility] Eosinophils/100 WBC (Bld) 5 % 0.9 - 7.0 % [facility] Erythrocyte distribution width (RBC) [Ratio] 14.3 % 11.0 - 15.0 % [facility] Hematocrit (Bld) [Volume fraction] 23.4 % Critically low 42.0 - 54.0 % [facility] Comment on above: RESULTS CALLED TO TABBY RUBALCAVA RN Hemoglobin (Bld) [Mass/Vol] 7.3 g/dL Low 14.0 - 18.0 g/dL [facility] IMMATURE GRANULOCYTES ABS AUTO 0.06 High [facility] Immature granulocytes/100 WBC (Bld) 0.4 % 0.0 - 0.5 % [facility] Interpretation and review of laboratory results Abnormal [facility] LYMPHOCYTES ABSOLUTE AUTO 1.6 [facility] Lymphocytes/100 WBC (Bld) 11.5 % Low 20.5 - 60.0 % [facility] MCH (RBC) [Entitic mass] 26 pg 25.9 - 34.0 pg [facility] MCHC (RBC) [Mass/Vol] 31.2 g/dL 29.9 - 35.2 g/dL [facility] MCV (RBC) [Entitic vol] 83.3 fL 80.0 - 94.0 fL [facility] MONOCYTES ABSOLUTE AUTO 1.1 High [facility] Monocytes/100 WBC (Bld) 8.2 % 1.7 - 12.0 % [facility] NEUTROPHILS ABSOLUTE AUTO 10.3 High [facility] Neutrophils/100 WBC (Bld) 74.5 % 43.0 - 75.0 % [facility] Platelet mean volume (Bld) [Entitic vol] 8.9 fL Low 9.5 - 13.5 fL [facility] EO # 0.7 [facility] PLT 319 [facility] RBC 2.81 Low [facility] WBC 13.8 High [facility] ALL CBC WITH AUTO DIFFon BASOPHILS ABSOLUTE AUTO 0.1 [facility] Basophils/100 WBC (Bld) 0.4 % 0.2 - 2.0 % [facility] Eosinophils/100 WBC (Bld) 5.1 % 0.9 - 7.0 % [facility] Erythrocyte distribution width (RBC) [Ratio] 15.3 % High 11.0 - 15.0 % [facility] Hematocrit (Bld) [Volume fraction] 22.9 % Critically low 42.0 - 54.0 % [facility] Comment on above: RESULTS CALLED TO CARLOS FREED RN Hemoglobin (Bld) [Mass/Vol] 6.9 g/dL Critically low 14.0 - 18.0 g/dL [facility] Comment on above: RESULTS CALLED TO CARLOS FREED RN IMMATURE GRANULOCYTES ABS AUTO 0.05 High [facility] Immature granulocytes/100 WBC (Bld) 0.4 % 0.0 - 0.5 % [facility] Interpretation and review of laboratory results Abnormal [facility] LYMPHOCYTES ABSOLUTE AUTO 1.3 [facility] Lymphocytes/100 WBC (Bld) 10.2 % Low 20.5 - 60.0 % [facility] MCH (RBC) [Entitic mass] 24.7 pg Low 25.9 - 34.0 pg [facility] MCHC (RBC) [Mass/Vol] 30.1 g/dL 29.9 - 35.2 g/dL [facility] MCV (RBC) [Entitic vol] 82.1 fL 80.0 - 94.0 fL [facility] MONOCYTES ABSOLUTE AUTO 1.1 High [facility] Monocytes/100 WBC (Bld) 8.1 % 1.7 - 12.0 % [facility] NEUTROPHILS ABSOLUTE AUTO 9.9 High [facility] Neutrophils/100 WBC (Bld) 75.8 % High 43.0 - 75.0 % [facility] Platelet mean volume (Bld) [Entitic vol] 8.9 fL Low 9.5 - 13.5 [facility] PLT 292 [facility] RBC 2.79 Low [facility] WBC 13.1 High [facility] ALL CBC WITH AUTO DIFFon BASOPHILS ABSOLUTE AUTO 0.1 [facility] Basophils/100 WBC (Bld) 0.6 % 0.2 - 2.0 % [facility] Eosinophils/100 WBC (Bld) 8.8 % High 0.9 - 7.0 % [facility] Erythrocyte distribution width (RBC) [Ratio] 14 % 11.0 - 15.0 % [facility] Hematocrit (Bld) [Volume fraction] 26.9 % Low 42.0 - 54.0 % [facility] Hemoglobin (Bld) [Mass/Vol] 8.1 g/dL Low 14.0 - 18.0 g/dL [facility] IMMATURE GRANULOCYTES ABS AUTO 0.12 High [facility] Immature granulocytes/100 WBC (Bld) 0.9 % High 0.0 - 0.5 % [facility] Interpretation and review of laboratory results Abnormal [facility] LYMPHOCYTES ABSOLUTE AUTO 1.6 [facility] Lymphocytes/100 WBC (Bld) 12.2 % Low 20.5 - 60.0 % [facility] MCH (RBC) [Entitic mass] 24.9 pg Low 25.9 - 34.0 pg [facility] MCHC (RBC) [Mass/Vol] 30.1 g/dL 29.9 - 35.2 g/dL [facility] MCV (RBC) [Entitic vol] 82.8 fL 80.0 - 94.0 fL [facility] MONOCYTES ABSOLUTE AUTO 1 High [facility] Monocytes/100 WBC (Bld) 7.3 % 1.7 - 12.0 % [facility] NEUTROPHILS ABSOLUTE AUTO 9.3 High [facility] Neutrophils/100 WBC (Bld) 70.2 % 43.0 - 75.0 % [facility] Platelet mean volume (Bld) [Entitic vol] 8.9 fL Low 9.5 - 13.5 fL [facility] TBH EO # 1.2 High [facility] TB PLT 317 [facility] RBC 3.25 Low [facility] WBC 13.2 High [facility] ALL SED RATEon 02-14-2024 Interpretation and review of laboratory results Abnormal [facility] High NINF [facility] Basic Metabolic Panelon 01-27 Anion gap [Moles/Vol] 9.9 mmol/L Normal 6.0-15.0 [facility] Comment on above: Performed By: #### C BC, BMP #### [facility] [address] [place] [address] [place] Calcium [Mass/Vol] 7.6 mg/dL Low 8.6-10.3 [facility] Comment on above: Performed By: #### C BC, BMP #### [facility] [address] [place] [address] [place] Chloride [Moles/Vol] 106 mmol/L Normal 98-107 [facility] Comment on above: Performed By: #### C BC, BMP #### [facility] [address] [place] [address] [place] CO2 [Moles/Vol] 26.1 mmol/L Normal 21.0-31.0 [facility] Comment on above: Performed By: #### C BC, BMP #### [facility] [address] [place] [address] [place] Creatinine [Mass/Vol] 1.59 mg/dL High 0.70-1.30 [facility] Comment on above: Performed By: #### C BC, BMP #### [facility] [address] [place] [address] [place] GFR/1.73 sq M.predicted MDRD (S/P/Bld) [Vol rate/Area] 48.779 mL/min/{1.73_m2} Normal [facility] Comment on above: Performed By: #### C BC, BMP #### [address] Glucose [Mass/Vol] 128 mg/dL High 70-100 [facility] Comment on above: Result Comment: [place] Glucose Reference Range is dependent on time and content of last meal. Glucose of more than 200 mg/dL in a nonstressed, ambulatory subject supports the diagnosis of Diabetes Mellitus. ADA recommended reference range Performed By: #### C BC, BMP #### [facility] [address] [place] [address] [place] Potassium [Moles/Vol] 4.0 mmol/L Normal 3.5-5.1 [facility] Comment on above: Performed By: #### C BC, BMP #### [facility] [address] [place] [id number] [place] Sodium [Moles/Vol] 138 mmol/L Normal 136-145 [facility] Comment on above: Performed By: #### C BC, BMP #### [facility] [address] [place] [id number] [place] Urea nitrogen [Mass/Vol] 24 mg/dL Normal 7-25 [facility] Comment on above: Performed By: #### C CHINTAN, BMP #### [facility] [address] [place] [id number] [facility] Basophils Auto (Bld) [#/Vol] Ordered By: Nina Aleta on 02-08-2024 Basophils (Bld) [#/Vol] Automated basophil count 0.0-0.2 [facility] Basophils/100 WBC Auto (Bld) Ordered By: Nina Aleta on 02-08-2024 Basophils/100 WBC (Bld) Automated basophil % . [facility] C reactive protein [Mass/vol ume] in Serum or PlasmaOrdered By: Nina Aleta on 02-08-2024 CRP [Mass/Vol] C reactive protein [Mass/volume] in Serum or Plasma High 0.0-0.5 [facility] C-Reactive Proteinon 024 C-Reactive Protein 10.7 mg/dL High 0.0-0.5 [facility] Comment on above: Performed By: #### C CHINTAN, BMP #### [place] [id number] [facility] Calcium [Mass/volume] in Ser um or PlasmaOrdered By: Nina Aleta on 02-08-2024 Calcium [Mass/Vol] Calcium [Mass/volume ] in Serum or Plasma Low 8.6-10.3 [facility] Carbon dioxide, total [Moles /volume] in Serum or PlasmaOrdered By: Nina Aleta on 02-08-2024 CO2 [Moles/Vol] Carbon dioxide, tota l [Moles/volume] in Serum or Plasma 21.0-31.0 [facility] Chloride [Moles/volume] in S tremayne or PlasmaOrdered By: Nina Aleta on 02-08-2024 Chloride [Moles/Vol] Chloride [Moles/vol ume] in Serum or Plasma 98-107 [facility] Complete Blood Count Auto Di ffon 02-08-2024 Basophils (Bld) [#/Vol] 0.0 10*3/uL Normal 0.0-0.2 [facility] Comment on above: Performed By: #### C BC, BMP, FE PRO, B12, ESR, CRP #### [address] Basophils/100 WBC (Bld) 0.4 % Normal . [facility] Comment on above: Performed By: #### C BC, BMP, FE PRO, B12, ESR, CRP #### [address] Eosinophils (Bld) [#/Vol] 0.2 10*3/uL Normal 0.0-0.45 [facility] Comment on above: Performed By: #### C BC, BMP, FE PRO, B12, ESR, CRP #### [address] Eosinophils/100 WBC (Bld) 2.4 % Normal . [facility] Comment on above: Performed By: #### C BC, BMP, FE PRO, B12, ESR, CRP #### [address] Erythrocyte distribution width (RBC) [Ratio] 15.2 % High 12.0-14.8 [facility] Comment on above: Performed By: #### C BC, BMP, FE PRO, B12, ESR, CRP #### [address] Hematocrit (Bld) [Volume fraction] 23.1 % Low 38.8-50.0 [facility] Comment on above: Performed By: #### C BC, BMP, FE PRO, B12, ESR, CRP #### [address] Hemoglobin (Bld) [Mass/Vol] 7.8 g/dL Low 13.0-17.0 [facility] Comment on above: Performed By: #### C BC, BMP, FE PRO, B12, ESR, CRP #### [address] Lymphocytes (Bld) [#/Vol] 0.7 10*3/uL Low 1.00-4.8 [facility] Comment on above: Performed By: #### C BC, BMP, FE PRO, B12, ESR, CRP #### [address] Lymphocytes/100 WBC (Bld) 7.0 % Normal . [facility] Comment on above: Performed By: #### C BC, BMP, FE PRO, B12, ESR, CRP #### [address] MCH (RBC) [Entitic mass] 26.8 pg Low 27.5-35.2 [facility] Comment on above: Performed By: #### C BC, BMP, FE PRO, B12, ESR, CRP #### [address] MCV (RBC) [Entitic vol] 79.5 fL Low 83.5-101 [facility] Comment on above: Performed By: #### C BC, BMP, FE PRO, B12, ESR, CRP #### [address] Mean Corpuscular HGB Conc 33.7 g/dL Normal 32.5-35.6 [facility] Comment on above: Performed By: #### C BC, BMP, FE PRO, B12, ESR, CRP #### [address] Monocytes (Bld) [#/Vol] 0.5 10*3/uL Normal 0.0-0.8 [facility] Comment on above: Performed By: #### C BC, BMP, FE PRO, B12, ESR, CRP #### [address] Monocytes/100 WBC (Bld) 4.8 % Normal . [facility] Comment on above: Performed By: #### C BC, BMP, FE PRO, B12, ESR, CRP #### [address] Neutrophils (Bld) [#/Vol] 9.0 10*3/uL High 1.8-7.7 [facility] Comment on above: Performed By: #### C BC, BMP, FE PRO, B12, ESR, CRP #### [address] Neutrophils/100 WBC (Bld) 85.4 % Normal . [facility] Comment on above: Performed By: #### C BC, BMP, FE PRO, B12, ESR, CRP #### [address] NRBC% 0.0 /100{WBC} Normal 0-0.5 The [facility] Comment on above: Performed By: #### C BC, BMP, FE PRO, B12, ESR, CRP #### [address] Platelet mean volume (Bld) [Entitic vol] 6.7 fL Normal 6.6-10.1 The [facility] Comment on above: Performed By: #### C BC, BMP, FE PRO, B12, ESR, CRP #### [address] Platelets (Bld) [#/Vol] 220 10*3/uL Normal 150-450 [facility] Comment on above: Performed By: #### C BC, BMP, FE PRO, B12, ESR, CRP #### [address] RBC (Bld) [#/Vol] 2.91 10*6/uL Low 3.90-5.60 The [facility] Comment on above: Performed By: #### C BC, BMP, FE PRO, B12, ESR, CRP #### [address] WBC (Bld) [#/Vol] 10.5 10*3/uL Normal 4.1-10.5 The [facility] Comment on above: Performed By: #### C BC, BMP, FE PRO, B12, ESR, CRP #### [address] Creatinine [Mass/volume] in Serum or PlasmaOrdered By: Nina River on 02-08-2024 Creatinine [Mass/Vol] Creatinine [Mass/v olume] in Serum or Plasma High 0.70-1.30 [facility] Eosinophils Auto (Bld) [#/Vo l]Ordered By: Nina River on 02-08-2024 Eosinophils (Bld) [#/Vol] Automated eosinophil count 0.0-0.45 [facility] Eosinophils/100 WBC Auto (Bl d)Ordered By: Nina Aleta on 02-08-2024 Eosinophils/100 WBC (Bld) Automated eosinophil % . [facility] Erythrocyte Sedimentation Ra мария 02-08-2024 ESR (Bld) [Velocity] 44 mm/h High 0-19 [facility] Comment on above: Result Comment: PERF ORMED BY: [place] [address] PATHOLOGIST [employer]ULS[employer] MACHIN[employer] SERVICE ENGINEER FARRAH PAUL M.D. Performed By: #### C BC, BMP, FE PRO, B12, ESR, CRP #### [facility] [address] [place] [address] Erythrocyte distribution wid th Auto (RBC) [Ratio]Ordered By: Nina River on 02-08-2024 Erythrocyte distribution width (RBC) [Ratio] Erythrocyte distribution width [Ratio] by Automated count High 12.0-14.8 [facility] Erythrocyte sedimentation ra te by Photometric methodOrdered By: Nina River on 02-08-2024 ESR Photometric method (Bld) [Velocity] Erythrocyte sedimentation rate by Photometric method High 0-19 [facility] FE PROon 02-08-2024 % Iron Saturation Not performed Normal 20-50 [facility] Comment on above: Performed By: #### C BC, BMP #### [facility] [address] [place] [address] Ferritin [Mass/Vol] 422.9 ng/mL High 23.9-336.2 [facility] Comment on above: Performed By: #### C BC, BMP #### [address] Iron [Mass/Vol] ug/dL Low 50-212 The [facility] Comment on above: Performed By: #### C BC, BMP #### [address] [place] [address] [place] Total Iron Binding Capacity 175 ug/dL Low 255-450 [facility] Comment on above: Performed By: #### C CHINTAN, MARÍA #### [facility] [address] Transferrin [Mass/Vol] 125 mg/dL Low 203-362 [facility] Comment on above: Performed By: #### C CHINTAN, BMP #### [facility] [address] Ferritin [Mass/volume] in Se rum or PlasmaOrdered By: Nina River on 02-08-2024 Ferritin [Mass/Vol] Ferritin [Mass/volum e] in Serum or Plasma High 23.9-336.2 [facility] Glucose [Mass/volume] in Ser um or PlasmaOrdered By: Nina River on 02-08-2024 Glucose [Mass/Vol] Glucose [Mass/volume ] in Serum or Plasma High 70-100 [facility] Comment on above: ADA recommended refe rence rangeRandom Glucose Reference Range is dependent on time and content of last meal. Glucose of more than 200 mg/dL in a nonstressed, ambulatory subject supports the diagnosis of Diabetes Mellitus. Hematocrit Auto (Bld) [Volum e fraction]Ordered By: Nina River on 02-08-2024 Hematocrit (Bld) [Volume fraction] Hematocrit [Volume Fraction] of Blood by Automated count Low 38.8-50.0 [facility] Hemoglobin [Mass/volume] in BloodOrdered By: Nina River on 02-08-2024 Hemoglobin (Bld) [Mass/Vol] Hemoglobin [Mass/volume] in Blood Low 13.0-17.0 [facility] Iron [Mass/volume] in Serum or PlasmaOrdered By: Nina River on 02-08-2024 Iron [Mass/Vol] Iron [Mass/volume] i n Serum or Plasma Low 50-212 [facility] Leukocytes [#/volume] correc shreya for nucleated erythrocytes in Blood by Automated counOrdered By: Nina River on 02-08-2024 WBC corrected for nucl RBC Auto (Bld) [#/Vol] Leukocytes [#/volume] corrected for nucleated erythrocytes in Blood by Automated coun 4.1-10.5 [facility] Lymphocytes Auto (Bld) [#/Vo l]Ordered By: Nina Aleta on 02-08-2024 Lymphocytes (Bld) [#/Vol] Lymphocytes [#/volume] in Blood by Automated count Low 1.00-4.8 [facility] Lymphocytes/100 WBC Auto (Bl d)Ordered By: Nina Aleta on 02-08-2024 Lymphocytes/100 WBC (Bld) Lymphocytes/100 leukocytes in Blood by Automated count . [facility] MCH Auto (RBC) [Entitic mass ]Ordered By: Nina Aleta on 02-08-2024 MCH (RBC) [Entitic mass] MCH [Entitic mass] by Automated count Low 27.5-35.2 [facility] MCHC Auto (RBC) [Mass/Vol]Or dered By: Nina Aleta on 02-08-2024 MCHC (RBC) [Mass/Vol] MCHC [Mass/volume] by Automated count 32.5-35.6 [facility] MCV Auto (RBC) [Entitic vol] Ordered By: Nina Aleta on 02-08-2024 MCV (RBC) [Entitic vol] MCV [Entitic volume] by Automated count Low 83.5-101 [facility] Monocytes Auto (Bld) [#/Vol] Ordered By: Nina Aleta on 02-08-2024 Monocytes (Bld) [#/Vol] Automated blood monocyte count 0.0-0.8 [facility] Monocytes/100 WBC Auto (Bld) Ordered By: Nina Aleta on 02-08-2024 Monocytes/100 WBC (Bld) Automated monocyte % . [facility] Neutrophils Auto (Bld) [#/Vo l]Ordered By: Nina Aleta on 02-08-2024 Neutrophils (Bld) [#/Vol] Neutrophils [#/volume] in Blood by Automated count High 1.8-7.7 [facility] Neutrophils/100 WBC Auto (Bl d)Ordered By: Nina Aleta on 02-08-2024 Neutrophils/100 WBC (Bld) Automated neutrophil % . [facility] No Panel InformationOrdered By: Nina River on 02-08-2024 Estimated GFR (CKD-EPI) 48.779 mL/Min [facility] Creatinine Clearance (Chem N/A [facility] Nucleated erythrocytes [Pres ence] in Blood by Automated countOrdered By: Nina River on 02-08-2024 Nucleated RBC Auto Ql (Bld) Nucleated erythrocytes [Presence] in Blood by Automated count 0-0.5 [facility] Platelet mean volume Auto (B ld) [Entitic vol]Ordered By: Nina River on 02-08-2024 Platelet mean volume (Bld) [Entitic vol] Platelet mean volume [Entitic volume] in Blood by Automated count 6.6-10.1 [facility] Platelets Auto (Bld) [#/Vol] Ordered By: Nina River on 02-08-2024 Platelets (Bld) [#/Vol] Platelets [#/volume] in Blood by Automated count 150-450 [facility] Potassium [Moles/volume] in Serum or PlasmaOrdered By: Nina River on 02-08-2024 Potassium [Moles/Vol] Potassium [Moles/v olume] in Serum or Plasma 3.5-5.1 [facility] RBC Auto (Bld) [#/Vol]Ordere d By: Nina River on 02-08-2024 RBC (Bld) [#/Vol] Erythrocytes [#/volu me] in Blood by Automated count Low 3.90-5.60 [facility] Serum or plasma anion gap de terminationOrdered By: Nina River on 02-08-2024 Anion gap [Moles/Vol] Serum or plasma an ion gap determination 6.0-15.0 [facility] Serum or plasma iron binding capacity measurement (mass/volume)Ordered By: Nina River on 02-08-2024 Iron binding capacity [Mass/Vol] Iron binding capacity [Mass/volume] in Serum or Plasma Low 255-450 [facility] Serum or plasma iron saturat ion measurement (mass fraction)Ordered By: Nina River on 02-08-2024 Iron saturation [Mass fraction] Iron saturation [Mass Fraction] in Serum or Plasma [facility] Comment on above: Test not performed Sodium [Moles/volume] in Ser um or PlasmaOrdered By: Nina River on 02-08-2024 Sodium [Moles/Vol] Sodium [Moles/volume ] in Serum or Plasma 136-145 [facility] Transferrin [Mass/volume] in Serum or PlasmaOrdered By: Nina River on 02-08-2024 Transferrin [Mass/Vol] Transferrin [Mass/volume] in Serum or Plasma Low 203-362 [facility] Urea nitrogen [Mass/volume] in Serum or PlasmaOrdered By: Nina River on 02-08-2024 Urea nitrogen [Mass/Vol] Urea nitrogen [Mass/volume] in Serum or Plasma 7-25 [facility] Vitamin B12on 02-08-2024 Cobalamin (Vitamin B12) [Mass/Vol] 701 pg/mL Normal 180-914 [facility] Comment on above: Result Comment: PERF ORMED BY: [place] [address] PATHOLOGIST PROPULSION MACHINERY SERVICE ENGINEER FARRAH PAUL M.D. Performed By: #### C BC, BMP #### [address] Vitamin B12 ser/plasOrdered By: Nina River on 02-08-2024 Cobalamin (Vitamin B12) [Mass/Vol] Vitamin B12 ser/plas 180-914 [facility] WBC Auto (Bld) [#/Vol]Ordere d By: Nian River on 02-08-2024 WBC (Bld) [#/Vol] Leukocytes [#/volume ] in Blood by Automated count 4.1-10.5 [facility] ALL CBC WITH AUTO DIFFon BASOPHILS ABSOLUTE AUTO 0.0 [facility] Basophils/100 WBC (Bld) 0.3 % 0.2 - 2.0 % [facility] Eosinophils/100 WBC (Bld) 6.4 % 0.9 - 7.0 % [facility] Erythrocyte distribution width (RBC) [Ratio] 16.8 % High 11.0 - 15.0 % [facility] Hematocrit (Bld) [Volume fraction] 29.4 % Low 42.0 - 54.0 % [facility] Hemoglobin (Bld) [Mass/Vol] 9.0 g/dL Low 14.0 - 18.0 g/dL [facility] IMMATURE GRANULOCYTES ABS AUTO 0.04 High [facility] Immature granulocytes/100 WBC (Bld) 0.4 % 0.0 - 0.5 % [facility] Interpretation and review of laboratory results Abnormal [facility] LYMPHOCYTES ABSOLUTE AUTO 1.8 [facility] Lymphocytes/100 WBC (Bld) 17.7 % Low 20.5 - 60.0 % [facility] MCH (RBC) [Entitic mass] 25.3 pg Low 25.9 - 34.0 pg [facility] MCHC (RBC) [Mass/Vol] 30.6 g/dL 29.9 - 35.2 g/dL [facility] MCV (RBC) [Entitic vol] 82.6 fL 80.0 - 94.0 fL [facility] MONOCYTES ABSOLUTE AUTO 0.7 [facility] Monocytes/100 WBC (Bld) 6.7 % 1.7 - 12.0 % [facility] NEUTROPHILS ABSOLUTE AUTO 7.1 High [facility] Neutrophils/100 WBC (Bld) 68.5 % 43.0 - 75.0 % [facility] Platelet mean volume (Bld) [Entitic vol] 8.8 fL Low 9.5 - 13.5 fL [facility] TBH EO # 0.7 [facility] TB PLT 280 [facility] TB RBC 3.56 Low [facility] TB WBC 10.3 [facility]IS[facility] BONE MARROWon 10-11-2023 BONE MARROW SEE SEPARATE REPORT Normal [facility] Comment on above: Result Comment: REVI EWED BY SOLEDAD HUYNH M.D. Performed By: #### E XHR, 56519-1, MDSDF #### [facility] ([id number]) [address] [place] [address], [place] [address] #### 03405-4, PENNY #### [facility] ([id number]) [address] [facility], [address] [place] [address] CBC AND AUTO DIFFon 10-11-19 24 ABSOLUTE BASOPHIL 0.0 X10E9/L Normal 0.0-0.2 [facility] Comment on above: Performed By: #### P INR, CBCA #### [facility] ([id number]) [address] [place] [address] ABSOLUTE NEUTROPHIL 8.0 X10E9/L High 1.5-6.6 [facility] Comment on above: Performed By: #### P INR, CBCA #### [facility] ([id number]) [address] [place] [address] 85490 Basophils/100 WBC (Bld) 0.3 % Normal [facility] Comment on above: Performed By: #### P INR, CBCA #### [facility] ([id number]) [address] [place] [address] 63512 Eosinophils (Bld) [#/Vol] 0.5 10*3/uL High 0.0-0.4 [facility] Comment on above: Performed By: #### P INR, CBCA #### [facility] ([id number]) [address] [place] [address] 40436 Eosinophils/100 WBC (Bld) 4.4 % Normal [facility] Comment on above: Performed By: #### P INR, CBCA #### [facility] ([id number]) [address] [place] [address] 57926 Erythrocyte distribution width (RBC) [Ratio] 16.8 % High 11.5-15.0 [facility] Comment on above: Performed By: #### P INR, CBCA #### [facility] ([id number]) [address] [place] [address] 72271 Hematocrit (Bld) [Volume fraction] 20.1 % Low 39-49 [facility] Comment on above: Performed By: #### P INR, CBCA #### [facility] ([id number]) [address] [place] [address] 63847 Hemoglobin (Bld) [Mass/Vol] 6.6 g/dL Critically low 13.0-17.0 [facility] Comment on above: Performed By: #### P INR, CBCA #### [facility] ([id number]) [address] [place] [address] 48721 Lymphocytes (Bld) [#/Vol] 1.4 10*3/uL Normal 1.0-3.5 [facility] Comment on above: Performed By: #### P INR, CBCA #### [facility] ([id number]) [address] [place] [address] 14394 Lymphocytes/100 WBC (Bld) 13.0 % Normal [facility] Comment on above: Performed By: #### P INR, CBCA #### [facility] ([id number]) [address] [place] [address] 82953 MCH (RBC) [Entitic mass] 24.7 pg Low 27-34 [facility] Comment on above: Performed By: #### P INR, CBCA #### [facility] ([id number]) [address] [place] [address] 69188 MCHC (RBC) [Mass/Vol] 32.6 g/dL Normal 32-36 [facility] Comment on above: Performed By: #### P INR, CBCA #### [facility] ([id number]) [address] [place] [address] 40920 MCV (RBC) [Entitic vol] 76 fL Low 80-100 [facility] Comment on above: Performed By: #### P INR, CBCA #### [facility] ([id number]) [address] [place] [address] 62249 Monocytes (Bld) [#/Vol] 0.9 10*3/uL Normal 0-0.9 [facility] Comment on above: Performed By: #### P INR, CBCA #### [facility] ([id number]) [address] [place] [address] 42859 Monocytes/100 WBC (Bld) 8.2 % Normal [facility] Comment on above: Performed By: #### P INR, CBCA #### [facility] ([id number]) [address] [place] [address] 07013 Neutrophils/100 WBC (Bld) 74.1 % Normal [facility] Comment on above: Performed By: #### P INR, CBCA #### [facility] ([id number]) [address] [place] [address] 60847 Platelet mean volume (Bld) [Entitic vol] 7.0 fL Normal 7-12 [facility] Comment on above: Performed By: #### P INR, CBCA #### [facility] ([id number]) [address] [place] [address] 62965 Platelets (Bld) [#/Vol] 371 10*3/uL Normal 150-450 [facility] Comment on above: Performed By: #### P INR, CBCA #### [facility] ([id number]) [address] [place] [address] 25076 RBC COUNT 2.66 X10E12/L Low 4.10-5.70 [facility] Comment on above: Performed By: #### P INR, CBCA #### [facility] ([id number]) [address] [place] [address] 82971 WBC (Bld) [#/Vol] 10.8 10*3/uL Normal 4.0-11.0 [facility] Comment on above: Performed By: #### P INR, CBCA #### [facility] ([id number]) [address] [place] [address] [place] [address] DNA and RNA Extract and Hold on 10-11-2023 DNA and RNA Extract and Hold SEE COMMENTS 10/14/2023 08:52 AM [facility] Comment on above: Result Comment: [...] Molecular Hematopathology Laboratory's test catalog, please contact [facility] at [phone]. Method summary: DNA and RNA were extracted from the received specimen and stored at -80 C. This test was developed and its performance characteristics determined by [facility] in a manner consistent with CLIA requirements. This test has not been cleared or approved by the U.S. Food and Drug Administration. Test Performed by: [place] [id number] Plant Cytologist: Rosie Ruby Ph.D.; CLIA# [id number] Performed By: #### Luciana MORILLO, 05143-7, BERNABE #### [facility] ([id number]) [address] [place] [address] 68665 #### 00867-6, PENNY #### [facility] ([id number]) [address] [place] [address], [address] [place] [address] Flow cytometry specialist re view Álvaro (Unsp spec) [Interp]on 10-11-2023 FLOW CYTOMETRY BM SEE SEPARATE REPORT, REVIEWED BY PATHOLOGIST Normal [facility] Comment on above: Performed By: #### Luciana MORILLO, 87717-7, MDSDF #### [facility] ([id number]) [address] [facility], FIRST FLOOR [place] [address] #### 87489-5, PENNY #### [facility] ([id number]) [address] [facility], [address] [place] [address] IR BX AND ASP BONE MARROW SN [...] on the left iliac bone using an [employer] powered bone marrow biopsy system. The bone [...] Guerrero MD on 10/11/2023 9:[address] [facility] Karyotype Nom (BM)on 024 CHROMOSOME BONE MARROW SEE COMMENTS 10/19/2023 02:[address] [facility] Comment on above: Result Comment: NOTE Test Result Flag Unit RefValue -- Chromosomes, Hematologic, BM Result Summary Normal Interpretation See Note No clonal abnormality was apparent. Since this conventional chromosome study was successful, MDS, Diag FISH was cancelled per lab protocol (Isma Christie et al., [facility], 146:86-94, 2016; [facility] MDS Algorithm: [email or web address]/Myelodysplastic_Syndrome_G uideline_to_Diagnosis_and_Follow-up.pdf). Result 46,XY[20] Reason for Referral leukocytosis [...] of the testing process was performed at [facility] PeerJ site [id number]. Released By Tanvi Loo M.D. Test Performed by: [facility] - [address] [address] Plant Cytologist: Rosie Ruby Ph.D.; CLIA# [id number] Performed By: #### E XHR, 02806-5, MDSDF #### [facility] ([id number]) [address] [place], [place] [address] #### 57337-0, PENNY #### [facility] ([id number]) [address] [facility] [facility], [address] [place] [address] MYELODYSPLASTIC SYNDROME (MD Jack),DIAGNOSTIC FISH, VARIESon 10-11-2023 MYELODYSPLASTIC SYNDROME (MDS),DIAGNOSTIC FISH, VARIES SEE COMMENTS 10/22/2023 08:[address] [facility] Comment on above: Result Comment: NOTE Test Result Flag Unit RefValue -- MDS, Diagnostic FISH Interpretation TNP MDS, Diagnostic FISH was cancelled on 10/22/2023 at 08:41; Based on other test results additional testing not required. MDS FISH order was cancelled per laboratory protocol (Isma et al., Amer J Clin Pathol 146:86-94, 2016; [facility] MDS Algorithm: www.[email or web address]/it-mmfiles/Myelodysplastic_S yndrome_Guideline_ to_Diagnosis_and_Follow-up.pdf) with Probes -RPN1(G)/MECOM(R), -TP53(R)/D17Z1(G), -D8Z2(G)/MYC(R), -N06U328(R)/20QTER(G), -T8M669(G)/EGR1(R), -D7Z1(G)/W0F315(R) Test Performed by: [facility] [place] [address] Plant Cytologist: Rosie Ruby Ph.D.; CLIA# [id number] Performed By: #### Luciana X, 73120-1, MDSDF #### [facility] ([id number]) [address] [place] [address] #### 83964-3, PENNY #### [facility] ([id number]) [address] [place] [address], [address] [place] [address] PROTIME AND INRon 10-11-2023 INR Coag (PPP) [Relative time] 1.3 {INR} High 0.8-1.1 [facility] Comment on above: Performed By: #### P INR, CBCA #### [facility] ([id number]) [address] [place] [address] PT Coag (PPP) [Time] 14.9 s High 9.8-13.2 [facility] Comment on above: Result Comment: NEW REFERENCE RANGE Performed By: #### P INR, CBCA #### [facility] ([id number]) [address] [place] [address] Surgical Pathologyon 024 Surgical Pathology Normal [facility] Comment on above: Result Comment: [facility] [address] [place] [address] Bone Marrow Consultation Patient Name:GANGA STINSON:1960 (Age: 63)Gender:MTaken:4Reported:10/14/2023hysician(s):Nina River ([phone])Copy To:Khadar Guerrero M.D. Rec. #:[id number]: #[id number] Final Pathologic Diagnosis Bone marrow, aspiration and [...] acquisition are identified on maturing myeloid cells. [place] on the lymphoid population demonstrates a mixed population of phenotypically unremarkable T-cells, polyclonal B-cells, and natural killer cells, without a detectable monoclonal population. No monotypic plasma cell population is identified. Immunophenotyping antibodies tested: CD2, CD3, CD4, CD5, CD7, CD8, CD10, CD13, CD16, CD19, CD20 , CD23, CD33, CD34, CD38, CD43, CD45, CD56, CD117, CD123, CD138, Melstone, Lambda. Cytoplasmic Melstone/CD38, Cytoplasmic Lambda/CD38, and intrinsic VS38 Immunophenotyping Comment: Immunophenotyping has been used in this diagnostic evaluation. This test was developed and its performance characteristics determined by the [facility] Department. It has not been [...] Out Soledad Huynh MD Interpretation performed at [facility], [address] [place] [address], License number: [id number]. Clinical History Leukocytosis. Gross Description 1. Received in B plus fixative labeled ALLOWAY, clot is a friable portion of hemorrhagic material, 2.2 x 1.0 x 0.4 cm in aggregate. The specimen is submitted entirely in a single cassette. (1, ns, [id number], m1) LADONNA 2. Received in B plus fixative labeled ALLOWAY, core is a pale osborne-pardo cylindrical segment of bone with adherent hemorrhagic material, 1.0 cm in length and 0.2 cm in diameter. The specimen is submitted entirely in a single cassette following a period of decalcification in [facility]. (1, ns, [id number], m1) LADONNA Comment: Per epic IR procedure [...] (7-23%) 7.5 l (more content not included)... Glucose Glucometer (BldC) [M ass/Vol]Ordered By: Jonathan Bah on 06-04-2023 Glucose [Mass/Vol] 134 mg/dL [facility] Comment on above: Random Glucose Refer ence Range is dependent on time and content of last meal. Glucose of more than 200 mg/dL in a nonstressed, ambulatory subject supports the diagnosis of Diabetes Mellitus. Gram stain for investigation of transfusion reactionOrdered By: Jonathan Bah on 06-04-2023 Microscopic observation Gram stain Nom (Unsp spec) Prevotella disiens [facility] Cult,Urineon 09-26-2022 Cult,Urine Specimen Description .CLEAN CATCH URINE Culture NO SIGNIFICANT GROWTH Report Status FINAL 09/26/2022 Normal [facility] Comment on above: Performed By: #### C MPX, CDP #### [facility] [address] [place] [address] Plant Cytologist: Khadar Tang MD US RENAL COMPLETEon 09-20-19 [...] Alexander Mcclain DO 09/19/22 Final result Normal [facility] Unremarkable ultraso und of the kidneys and urinary bladder. [facility] EXAMINATION: RETROPERITONEAL ULTRASOUND OF [...] the bladder. No significant post void residual. [facility] Alexander Mcclain DO - [...] ultrasound of the kidneys and urinary bladder. [facility] US RENAL COMPLETEOrdered By: Alexander Mcclain on 09-19-2022 [facility] Work Phone: Basic Metabolic Profon 09-18 Anion gap [Moles/Vol] 10 mmol/L Normal 9-17 [facility] Comment on above: Performed By: #### B MP #### [facility] [address] [place], [place] [address] Plant Cytologist: Khadar Tang MD BUN/CRE Ratio 26 High 9-20 [facility] Comment on above: Performed By: #### B MP #### [facility] [address] [place] [place] [address] Plant Cytologist: Khadar Tang MD Calcium [Mass/Vol] 9.3 mg/dL Normal 8.6-10.4 [facility] Comment on above: Performed By: #### B MP #### [facility] [address] [place] [address] Plant Cytologist: Khadar Tang MD Chloride [Moles/Vol] 105 mmol/L Normal 98-107 [facility] Comment on above: Performed By: #### B MP #### [facility] [address] [place] [address] Plant Cytologist: Khadar Tang MD CO2 [Moles/Vol] 22 mmol/L Normal 20-31 [facility] Comment on above: Performed By: #### B MP #### [facility] [address] [place] [address] Plant Cytologist: Khadar Tang MD Creatinine [Mass/Vol] 1.25 mg/dL High 0.70-1.20 [facility] Comment on above: Performed By: #### B MP #### [facility] [address] [place], [place] [address] Plant Cytologist: Khadar Tang MD GFR/1.73 sq M.predicted among non-blacks MDRD (S/P/Bld) [Vol rate/Area] mL/min/{1.73_m2} Normal >60 [facility] Comment on above: Result Comment: These [...] secretion. Performed By: #### B MP #### [facility] [address] [place] [address] [place] [place], [place] [id number] Plant Cytologist: Khadar Tang MD Glucose [Mass/Vol] 186 mg/dL High 70-99 [facility] Comment on above: Performed By: #### B MP #### [address] [place], [place] [address] Plant Cytologist: Khadar Tang MD Potassium [Moles/Vol] 4.1 mmol/L Normal 3.7-5.3 [facility] Comment on above: Performed By: #### B MP #### [facility] [address] [place], [place] [address] Plant Cytologist: Khadar Tang MD Sodium [Moles/Vol] 137 mmol/L Normal 135-144 [facility] Comment on above: Performed By: #### B MP #### [facility] [address] [place] [address] [place] [place], [place] [address] Plant Cytologist: Khadar Tang MD Urea nitrogen [Mass/Vol] 32 mg/dL High 8-23 [facility] Comment on above: Performed By: #### B MP #### [facility] [address] [place] [address] [place] [address] Plant Cytologist: Khadar Tang MD RENAL COMPLETEon 09-19-19 Radiology Study observation (narrative) [facility] Hemoglobin A1Con 2022 Glucose [Mass/Vol] 171 mg/dL Normal [facility] Comment on above: Result Comment: The ADA and AACC recommend providing the estimated average glucose result to permit better patient understanding of their HBA1c result. Performed By: #### G LYHGB #### [facility] [address] [place] [address] Plant Cytologist: Jeff Casanova MD HbA1c (Bld) [Mass fraction] 7.6 % High 4.0-6.0 [facility] Comment on above: Performed By: #### G LYHGB #### [facility] [address] [place], [place] [address] Plant Cytologist: Jeff Casanova MD OPERATIVE REPORTon 3 OPERATIVE REPORT [address] [address] OPERATIVE REPORT PATIENT NAME: GANGA STINSON : 1960 MED REC NO: [id number] ROOM: ACCOUNT NO: [id number] ADMIT DATE: 2022 PROVIDER: Angeles Nagy DATE OF PROCEDURE: 2022 SURGEON: Dr. Angeles Ngay. FUNDRAISING CONSULTANT: None. PREOPERATIVE DIAGNOSES: 1. Neurogenic bladder. 2. Urethral stricture. POSTOPERATIVE DIAGNOSES: 1. Neurogenic bladder. 2. Urethral stricture. PROCEDURE PERFORMED: Direct visual internal urethrotomy. ANESTHESIA: General. COMPLICATIONS: None. ESTIMATED BLOOD LOSS: Minimal. SPECIMENS: None. PROSTHESIS: An 18-Central African Rowe catheter. DISPOSITION: Stable. FINDINGS: Bulbous urethral stricture. 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 DESCRIPTION OF PROCEDURE: The patient was taken back to the operating room after informed consent including all risks, benefits, and alternatives were obtained. [facility], where he was induced under general anesthesia and given IV Ancef for preoperative antibiotic prophylaxis. To begin the case, he was prepped and draped in the normal sterile fashion and placed in dorsal lithotomy. He had a 21-Central African sheath with a 30-degree lens passed through [...] then removed the scope and inserted an 18-Central African Rowe catheter with ease. He was then awoken from general anesthesia, [facility], and taken to the PACU in satisfactory condition by Nursing and Anesthesia Teams. PLAN: The patient will be discharged home per PACU criterion and follow up with me in one week for Rowe catheter removal. ANGELES NAGY ALEXANDRIA/Jerry_MED_I Doc#: [id number] CC: Normal [facility] Basic Metabolic Panelon 04-0 Anion gap [Moles/Vol] 10 mmol/L 9 - 17 mmol/L [facility] [employer] Calcium [Mass/Vol] 8.8 mg/dL 8.6 - 10. 4 mg/dL [facility] Chloride [Moles/Vol] 106 mmol/L 98 - 10 7 mmol/L [facility] CO2 [Moles/Vol] 24 mmol/L 20 - 31 mmol/L [facility] Creatinine [Mass/Vol] 1.3 mg/dL High 0.70 - 1.20 mg/dL [facility] GFR/1.73 sq M.predicted MDRD (S/P/Bld) [Vol rate/Area] - PINF [facility] Comment on above: These results [...] 250 mg/dL High 70 - 99 mg/dL [facility] Interpretation and review of laboratory results Abnormal [facility] Potassium [Moles/Vol] 4.0 mmol/L 3.7 - 5.3 mmol/L [facility] Sodium [Moles/Vol] 140 mmol/L 135 - 144 mmol/L [facility] Urea nitrogen [Mass/Vol] 29 mg/dL High 8 - 23 mg/dL [facility] Urea nitrogen/Creatinine (Bld) [Mass ratio] 22 High 9 - 20 [facility] Basic Metabolic Profon 07-02 Anion gap [Moles/Vol] 10 mmol/L Normal 9-17 [facility] Comment on above: Performed By: #### C MPX, CDP #### [facility] [address] [place] [address] [place] [address] Plant Cytologist: Khadar Tang MD BUN/CRE Ratio 22 High 9-20 [facility] Comment on above: Performed By: #### C MPX, CDP #### [facility] [address] [place] [address] Plant Cytologist: Khadar Tang MD Calcium [Mass/Vol] 8.8 mg/dL Normal 8.6-10.4 [facility] Comment on above: Performed By: #### C MPX, CDP #### [facility] [address] [place] [address] Plant Cytologist: Khadar Tang MD Chloride [Moles/Vol] 106 mmol/L Normal 98-107 [facility] Comment on above: Performed By: #### C MPX, CDP #### [facility] [address] [place] [address] [place] [address] Plant Cytologist: Khadar Tang MD CO2 [Moles/Vol] 24 mmol/L Normal 20-31 [facility] Comment on above: Performed By: #### C MPX, CDP #### [facility] [address] [place] [address] Plant Cytologist: Khadar Tang MD Creatinine [Mass/Vol] 1.30 mg/dL High 0.70-1.20 [facility] Comment on above: Performed By: #### C MPX, CDP #### [facility] [address] [place] [address] Plant Cytologist: Khadar Tang MD GFR/1.73 sq M.predicted among non-blacks MDRD (S/P/Bld) [Vol rate/Area] mL/min/{1.73_m2} Normal >60 [facility] Comment on above: Result Comment: These [...] Performed By: #### C MPX, CDP #### [facility] [address] [place] [address] [place] [address] Plant Cytologist: Khadar Tang MD Glucose [Mass/Vol] 250 mg/dL High 70-99 [facility] Comment on above: Performed By: #### C MPX, CDP #### [facility] [address] [place] [address] Plant Cytologist: Khadar Tang MD Potassium [Moles/Vol] 4.0 mmol/L Normal 3.7-5.3 [facility] Comment on above: Performed By: #### C MPX, CDP #### [facility] [address] [place] [address] Plant Cytologist: Khadar Tang MD Sodium [Moles/Vol] 140 mmol/L Normal 135-144 [facility] Comment on above: Performed By: #### C MPX, CDP #### [facility] [address] [place] [address] Plant Cytologist: Khadar Tang MD Urea nitrogen [Mass/Vol] 29 mg/dL High 8-23 [facility] Comment on above: Performed By: #### C MPX, CDP #### [facility] [address] [place] [address] Plant Cytologist: Khadar Tang MD CBC with Auto Differentialon 07-02-2022 Absolute Eos # 0.80 High [facility] Absolute Immature Granulocyte 0.06 [facility] Absolute Lymph # 1.38 [facility] Absolute Alfalfa # 0.81 [facility] Basophils Absolute [facility] Basophils/100 WBC (Bld) 0 % 0 - 2 % [facility] Eosinophils/100 WBC (Bld) 7 % High 1 - 4 % [facility] Hematocrit (Bld) [Volume fraction] 26.8 % Low 40.7 - 50.3 % [facility] Hemoglobin (Bld) [Mass/Vol] 7.9 g/dL Low 13.0 - 17.0 g/dL [facility] Immature granulocytes/100 WBC (Bld) 1 % High 0 [facility] Interpretation and review of laboratory results Abnormal [facility] Lymphocytes/100 WBC (Bld) 13 % Low 24 - 43 % [facility] MCH (RBC) [Entitic mass] 23.3 pg Low 25.2 - 33.5 pg [facility] MCHC (RBC) [Mass/Vol] 29.5 g/dL 28.4 - 34.8 g/dL [facility] MCV (RBC) [Entitic vol] 79.1 fL Low 82.6 - 102.9 fL [facility] Monocytes/100 WBC (Bld) 8 % 3 - 12 % [facility] NRBC Automated 0.0 0.0 per 100 WBC [facility] Platelet distribution width (Bld) [Ratio] 16.1 % High 11.8 - 14.4 % [facility] Platelet mean volume (Bld) [Entitic vol] 9.1 fL 8.1 - 13.5 fL [facility] Platelets (Bld) [#/Vol] 241 10*3/uL [facility] RBC (Bld) [#/Vol] 3.39 10*6/uL Low 4.21 - 5.77 m/uL [facility] Segmented neutrophils/100 WBC (Bld) 71 % High 36 - 65 % [facility] Segs Absolute 7.79 [facility] WBC (Bld) [#/Vol] 10.9 10*3/uL [facility] CBC with Diffon 07-02-2022 Abs. Basophil <0.03 Normal 0.00-0.20 [facility] Comment on above: Performed By: #### C MPX, CDP #### [facility] [address] [place] [address] [place] [address] Plant Cytologist: Khadar Tang MD Abs.Imm.Granulocyte 0.06 k/uL Normal 0.00-0.30 [facility] Comment on above: Performed By: #### C MPX, CDP #### [facility] [address] [place] [address] Plant Cytologist: Khadar Tang MD Abs.Neutrophil (Seg) 7.79 k/uL Normal 1.50-8.10 [facility] Comment on above: Performed By: #### C MPX, CDP #### [facility] [address] [place] [address] Plant Cytologist: Khadar Tang MD Basophils/100 WBC (Bld) 0 % Normal 0-2 [facility] Comment on above: Performed By: #### C MPX, CDP #### [facility] [address] [place] [address] [place]. [place], [place] [id number] Plant Cytologist: Khadar Tang MD Eosinophils (Bld) [#/Vol] 0.80 10*3/uL High 0.00-0.44 [facility] Comment on above: Performed By: #### C MPX, CDP #### [address] [place], [place] [id number] Plant Cytologist: Khadar Tang MD Eosinophils/100 WBC (Bld) 7 % High 1-4 [facility] Comment on above: Performed By: #### C MPX, CDP #### [address] [place], [facility]83 Plant Cytologist: Khadar Tang MD Erythrocyte distribution width (RBC) [Ratio] 16.1 % High 11.8-14.4 [facility] Comment on above: Performed By: #### C MPX, CDP #### [address] [place], [facility]83 Plant Cytologist: Khadar Tang MD Hematocrit (Bld) [Volume fraction] 26.8 % Low 40.7-50.3 [facility] Comment on above: Performed By: #### C MPX, CDP #### [address] [place], [facility]83 Plant Cytologist: Khadar Tang MD Hemoglobin (Bld) [Mass/Vol] 7.9 g/dL Low 13.0-17.0 [facility] Comment on above: Performed By: #### C MPX, CDP #### [address] [place] [address] Plant Cytologist: Khadar Tang MD Immature granulocytes/100 WBC (Bld) 1 % High 0 [facility] Comment on above: Performed By: #### C MPX, CDP #### [address] [place], [facility]83 Plant Cytologist: Khadar Tang MD Lymphocytes (Bld) [#/Vol] 1.38 10*3/uL Normal 1.10-3.70 [facility] Comment on above: Performed By: #### C MPX, CDP #### [facility] [address] [place], [place] [id number] Plant Cytologist: Khadar Tang MD Lymphocytes/100 WBC (Bld) 13 % Low 24-43 [facility] Comment on above: Performed By: #### C MPX, CDP #### [facility] [address] [place] [address] Plant Cytologist: Khadar Tang MD MCH (RBC) [Entitic mass] 23.3 pg Low 25.2-33.5 [facility] Comment on above: Performed By: #### C MPX, CDP #### [address] [place], [place] [id number] Plant Cytologist: Khadar Tang MD MCHC (RBC) [Mass/Vol] 29.5 g/dL Normal 28.4-34.8 [facility] Comment on above: Performed By: #### C MPX, CDP #### [address] [place], [place] [id number] Plant Cytologist: Khadar Tang MD MCV (RBC) [Entitic vol] 79.1 fL Low 82.6-102.9 [facility] Comment on above: Performed By: #### C MPX, CDP #### [address] [place] [address] Plant Cytologist: Khadar Tang MD Monocytes (Bld) [#/Vol] 0.81 10*3/uL Normal 0.10-1.20 [facility] Comment on above: Performed By: #### C MPX, CDP #### [facility] [address] [place] [address] Plant Cytologist: Khadar Tang MD Monocytes/100 WBC (Bld) 8 % Normal 3-12 [facility] Comment on above: Performed By: #### C MPX, CDP #### [facility] [address] [place], [place] [id number] Plant Cytologist: Khadar Tang MD Neutrophil (Seg) 71 % High 36-65 [facility] Comment on above: Performed By: #### C MPX, CDP #### [facility] [address] [place], [place] [id number] Plant Cytologist: Khadar Tang MD NRBC Automated 0.0 per 100 WBC Normal 0.0 [facility] Comment on above: Performed By: #### C MPX, CDP #### [facility] [address] [place], [place] [id number] Plant Cytologist: Khadar Tang MD Platelet mean volume (Bld) [Entitic vol] 9.1 fL Normal 8.1-13.5 [facility] Comment on above: Performed By: #### C MPX, CDP #### [address] [place], [place] [id number] Plant Cytologist: Khadar Tang MD Platelets (Bld) [#/Vol] 241 10*3/uL Normal 138-453 [facility] Comment on above: Performed By: #### C MPX, CDP #### [facility] [address] [place] [address] [place]. [place], [place] [id number] Plant Cytologist: Khadar Tang MD RBC (Bld) [#/Vol] 3.39 10*6/uL Low 4.21-5.77 [facility] Comment on above: Performed By: #### C MPX, CDP #### [facility] [address] [place], [place] [id number] Plant Cytologist: Khadar Tang MD WBC (Bld) [#/Vol] 10.9 10*3/uL Normal 3.5-11.3 [facility] Comment on above: Performed By: #### C MPX, CDP #### [facility] [address] [place] [address] Plant Cytologist: Khadar Tang MD Cult,Woundon 06-27-2022 Cult,Wound Specimen Description .WOUND Special Requests LEG Direct Exam NO NEUTROPHILS SEEN NO ORGANISMS SEEN Culture NO GROWTH Report Status FINAL 06/27/2022 Normal [facility] Comment on above: Performed By: #### C MPX, CDP #### [facility] [address] [place] [address] Plant Cytologist: Khadar Tang MD CBC auto differentialon 05-29 Absolute Eos # 0.63 High [facility] Absolute Immature Granulocyte 0.05 [facility] Absolute Lymph # 1.33 [facility] Absolute Alfalfa # 0.82 [facility] Basophils Absolute [facility] Basophils/100 WBC (Bld) 0 % 0 - 2 % [facility] Eosinophils/100 WBC (Bld) 7 % High 1 - 4 % [facility] Hematocrit (Bld) [Volume fraction] 24.4 % Low 40.7 - 50.3 % [facility] Hemoglobin (Bld) [Mass/Vol] 7.6 g/dL Low 13.0 - 17.0 g/dL [facility] Immature granulocytes/100 WBC (Bld) 1 % High 0 [facility] Interpretation and review of laboratory results Abnormal [facility] Lymphocytes/100 WBC (Bld) 14 % Low 24 - 43 % [facility] MCH (RBC) [Entitic mass] 23.8 pg Low 25.2 - 33.5 pg [facility] MCHC (RBC) [Mass/Vol] 31.1 g/dL 28.4 - 34.8 g/dL [facility] MCV (RBC) [Entitic vol] 76.3 fL Low 82.6 - 102.9 fL [facility] Monocytes/100 WBC (Bld) 9 % 3 - 12 % [facility] NRBC Automated 0.0 0.0 per 100 WBC [facility] Platelet distribution width (Bld) [Ratio] 16.0 % High 11.8 - 14.4 % [facility] Platelet mean volume (Bld) [Entitic vol] 8.8 fL 8.1 - 13.5 fL [facility] Platelets (Bld) [#/Vol] 205 10*3/uL [facility] RBC (Bld) [#/Vol] 3.20 10*6/uL Low 4.21 - 5.77 m/uL [facility] Segmented neutrophils/100 WBC (Bld) 69 % High 36 - 65 % [facility] Segs Absolute 6.49 [facility] WBC (Bld) [#/Vol] 9.3 10*3/uL [facility] CBC with Diffon 06-26-2022 Abs. Basophil <0.03 Normal 0.00-0.20 [facility] Comment on above: Performed By: #### C MPX, CDP #### [facility] [address] [place] [address] [place] [address] Plant Cytologist: Khadar Tang MD Abs.Imm.Granulocyte 0.05 k/uL Normal 0.00-0.30 [facility] Comment on above: Performed By: #### C MPX, CDP #### [facility] [address] [place] [address] Dr. [place], [place] [id number] Plant Cytologist: Khadar Tang MD Abs.Neutrophil (Seg) 6.49 k/uL Normal 1.50-8.10 [facility] Comment on above: Performed By: #### C MPX, CDP #### [facility] [address] [place] [address] Plant Cytologist: Khadar Tang MD Basophils/100 WBC (Bld) 0 % Normal 0-2 [facility] Comment on above: Performed By: #### C MPX, CDP #### [facility] [address] [place] [address] Plant Cytologist: Khadar Tang MD Eosinophils (Bld) [#/Vol] 0.63 10*3/uL High 0.00-0.44 [facility] Comment on above: Performed By: #### C MPX, CDP #### [address] [place], [place] [id number] Plant Cytologist: Khadar Tang MD Eosinophils/100 WBC (Bld) 7 % High 1-4 [facility] Comment on above: Performed By: #### C MPX, CDP #### [address] [place], [place] [id number] Plant Cytologist: Khadar Tang MD Erythrocyte distribution width (RBC) [Ratio] 16.0 % High 11.8-14.4 [facility] Comment on above: Performed By: #### C MPX, CDP #### [address] [place], [place] 9184083 Plant Cytologist: Khadar Tang MD Hematocrit (Bld) [Volume fraction] 24.4 % Low 40.7-50.3 [facility] Comment on above: Performed By: #### C MPX, CDP #### [address] [place], [place] [id number] Plant Cytologist: Khadar Tang MD Hemoglobin (Bld) [Mass/Vol] 7.6 g/dL Low 13.0-17.0 [facility] Comment on above: Performed By: #### C MPX, CDP #### [address] [place], [place] [id number] Plant Cytologist: Khadar Tang MD Immature granulocytes/100 WBC (Bld) 1 % High 0 [facility] Comment on above: Performed By: #### C MPX, CDP #### [address] [place], [place] 1886383 Plant Cytologist: Khadar Tang MD Lymphocytes (Bld) [#/Vol] 1.33 10*3/uL Normal 1.10-3.70 [facility] Comment on above: Performed By: #### C MPX, CDP #### [facility] [address] [place] [address] [place]. [place], [place] [id number] Plant Cytologist: Khadar Tang MD Lymphocytes/100 WBC (Bld) 14 % Low 24-43 [facility] Comment on above: Performed By: #### C MPX, CDP #### [address] [place], [place] 6900083 Plant Cytologist: Khadar Tang MD MCH (RBC) [Entitic mass] 23.8 pg Low 25.2-33.5 [facility] Comment on above: Performed By: #### C MPX, CDP #### [address] [place], [place] 5041783 Plant Cytologist: Khadar Tang MD MCHC (RBC) [Mass/Vol] 31.1 g/dL Normal 28.4-34.8 [facility] Comment on above: Performed By: #### C MPX, CDP #### [address] [place], [place] 4112483 Plant Cytologist: Khadar Tang MD MCV (RBC) [Entitic vol] 76.3 fL Low 82.6-102.9 [facility] Comment on above: Performed By: #### C MPX, CDP #### [address] [place], [place] 3358483 Plant Cytologist: Khadar Tang MD Monocytes (Bld) [#/Vol] 0.82 10*3/uL Normal 0.10-1.20 [facility] Comment on above: Performed By: #### C MPX, CDP #### [address] [place] [address] Plant Cytologist: Khadar Tang MD Monocytes/100 WBC (Bld) 9 % Normal 3-12 [facility] Comment on above: Performed By: #### C MPX, CDP #### [facility] [address] [place] [address] Plant Cytologist: Khadar Tang MD Neutrophil (Seg) 69 % High 36-65 [facility] Comment on above: Performed By: #### C MPX, CDP #### [facility] [address] [place], [place] 4576583 Plant Cytologist: Khadar Tang MD NRBC Automated 0.0 per 100 WBC Normal 0.0 [facility] Comment on above: Performed By: #### C MPX, CDP #### [facility] [address] [place], [place] 4592483 Plant Cytologist: Khadar Tang MD Platelet mean volume (Bld) [Entitic vol] 8.8 fL Normal 8.1-13.5 [facility] Comment on above: Performed By: #### C MPX, CDP #### [address] [place], [place] 1878783 Plant Cytologist: Khadar Tang MD Platelets (Bld) [#/Vol] 205 10*3/uL Normal 138-453 [facility] Comment on above: Performed By: #### C MPX, CDP #### [address] [place], [place] 2529183 Plant Cytologist: Khadar Tang MD RBC (Bld) [#/Vol] 3.20 10*6/uL Low 4.21-5.77 [facility] Comment on above: Performed By: #### C MPX, CDP #### [facility] [address] [place] [address] Plant Cytologist: Khadar Tang MD WBC (Bld) [#/Vol] 9.3 10*3/uL Normal 3.5-11.3 [facility] Comment on above: Performed By: #### C MPX, CDP #### [facility] [address] [place] [address] Plant Cytologist: Khadar Tang MD EKG Rhythm Stripon 3 rd [facility] Glucose, Whole Bloodon 06-26 Glucose [Mass/Vol] 95 mg/dL 74 - 100 mg/dL [facility] No Panel Informationon 06-26 No dictation [facility] Work Phone: [facility] Work Phone: Surgical Pathologyon 023 [...] PATHOLOGY CONSULTATION Patient Name: GANGA STINSON [facility] Rec: [id number] Path Number: [id number] [facility] CONSULTING PATHOLOGISTS [facility] [address] [place] [address]. [place], [place] [address] Normal [facility] Comment on above: Performed By: #### C MPX, CDP #### [facility] [address] [place] [address] Plant Cytologist: Khadar Tang MD Blood occult stool #1on 05-29 Date, Stool #1 3 [facility] Comment on above: 30 23 Hemoglobin.gastrointe stinal spec 1 Ql (Stl) Negative NEGATIVE [facility] Time, Stool #1 [id number] [facility] CBC auto differentialon 05-29 Absolute Eos # 0.63 High [facility] Absolute Immature Granulocyte 0.07 [facility] Absolute Lymph # 1.63 [facility] Absolute Alfalfa # 0.76 [facility] Basophils Absolute [facility] Basophils/100 WBC (Bld) 0 % 0 - 2 % [facility] Eosinophils/100 WBC (Bld) 7 % High 1 - 4 % [facility] Hematocrit (Bld) [Volume fraction] 24.6 % Low 40.7 - 50.3 % [facility] Hemoglobin (Bld) [Mass/Vol] 7.6 g/dL Low 13.0 - 17.0 g/dL [facility] Immature granulocytes/100 WBC (Bld) 1 % High 0 [facility] Interpretation and review of laboratory results Abnormal [facility] Lymphocytes/100 WBC (Bld) 19 % Low 24 - 43 % [facility] MCH (RBC) [Entitic mass] 23.7 pg Low 25.2 - 33.5 pg [facility] MCHC (RBC) [Mass/Vol] 30.9 g/dL 28.4 - 34.8 g/dL [facility] MCV (RBC) [Entitic vol] 76.6 fL Low 82.6 - 102.9 fL [facility] Monocytes/100 WBC (Bld) 9 % 3 - 12 % [facility] NRBC Automated 0.0 0.0 per 100 WBC [facility] Platelet distribution width (Bld) [Ratio] 15.9 % High 11.8 - 14.4 % [facility] Platelet mean volume (Bld) [Entitic vol] 8.9 fL 8.1 - 13.5 fL [facility] Platelets (Bld) [#/Vol] 223 10*3/uL [facility] RBC (Bld) [#/Vol] 3.21 10*6/uL Low 4.21 - 5.77 m/uL [facility] Segmented neutrophils/100 WBC (Bld) 64 % 36 - 65 % [facility] Segs Absolute 5.60 [facility] WBC (Bld) [#/Vol] 8.7 10*3/uL [facility] CBC with Diffon 06-25-2022 Abs. Basophil <0.03 Normal 0.00-0.20 [facility] Comment on above: Performed By: #### T ROPI #### [facility] [address] [place], [place] [id number] Plant Cytologist: Khadar Tang MD Abs.Imm.Granulocyte 0.07 k/uL Normal 0.00-0.30 [facility] Comment on above: Performed By: #### T ROPI #### [facility] [address] [place] [address] Plant Cytologist: Khadar Tang MD Abs.Neutrophil (Seg) 5.60 k/uL Normal 1.50-8.10 [facility] Comment on above: Performed By: #### T ROPI #### [facility] [address] [place] [address] Plant Cytologist: Khadar Tang MD Basophils/100 WBC (Bld) 0 % Normal 0-2 [facility] Comment on above: Performed By: #### T ROPI #### [facility] [address] [place] [address] Dr. [place], [place] [id number] Plant Cytologist: Khadar Tang MD Eosinophils (Bld) [#/Vol] 0.63 10*3/uL High 0.00-0.44 [facility] Comment on above: Performed By: #### T ROPI #### [facility] [address] [place], [place] [id number] Plant Cytologist: Khadar Tang MD Eosinophils/100 WBC (Bld) 7 % High 1-4 [facility] Comment on above: Performed By: #### T ROPI #### [facility] [address] [place] [address] Plant Cytologist: Khadar Tang MD Erythrocyte distribution width (RBC) [Ratio] 15.9 % High 11.8-14.4 [facility] Comment on above: Performed By: #### T ROPI #### [facility] [address] [place], [facility]83 Plant Cytologist: Khadar Tang MD Hematocrit (Bld) [Volume fraction] 24.6 % Low 40.7-50.3 [facility] Comment on above: Performed By: #### T ROPI #### [facility] [address] [place], [facility]83 Plant Cytologist: Khadar Tang MD Hemoglobin (Bld) [Mass/Vol] 7.6 g/dL Low 13.0-17.0 [facility] Comment on above: Performed By: #### T ROPI #### [address] [place], [facility]83 Plant Cytologist: Khadar Tang MD Immature granulocytes/100 WBC (Bld) 1 % High 0 [facility] Comment on above: Performed By: #### T ROPI #### [address] [place], [place] [address] Plant Cytologist: Khadar Tang MD Lymphocytes (Bld) [#/Vol] 1.63 10*3/uL Normal 1.10-3.70 [facility] Comment on above: Performed By: #### T ROPI #### [facility] [address] [place] [address] Dr. [place], [place] [address] Plant Cytologist: Khadar Tang MD Lymphocytes/100 WBC (Bld) 19 % Low 24-43 [facility] Comment on above: Performed By: #### T ROPI #### [address] [place], [facility]83 Plant Cytologist: Khadar Tang MD MCH (RBC) [Entitic mass] 23.7 pg Low 25.2-33.5 [facility] Comment on above: Performed By: #### T ROPI #### [facility] [address] [place], [place] [id number] Plant Cytologist: Khadar Tang MD MCHC (RBC) [Mass/Vol] 30.9 g/dL Normal 28.4-34.8 [facility] Comment on above: Performed By: #### T ROPI #### [facility] [address] [place], [facility]83 Plant Cytologist: Khadar Tang MD MCV (RBC) [Entitic vol] 76.6 fL Low 82.6-102.9 [facility] Comment on above: Performed By: #### T ROPI #### [address] [place], [facility]83 Plant Cytologist: Khadar Tang MD Monocytes (Bld) [#/Vol] 0.76 10*3/uL Normal 0.10-1.20 [facility] Comment on above: Performed By: #### T ROPI #### [facility] [address] [place] [address] Dr[address] [place], [facility]83 Plant Cytologist: Khadar Tang MD Monocytes/100 WBC (Bld) 9 % Normal 3-12 [facility] Comment on above: Performed By: #### T ROPI #### [address] [place], [facility]83 Plant Cytologist: Khadar Tang MD Neutrophil (Seg) 64 % Normal 36-65 [facility] Comment on above: Performed By: #### T ROPI #### [facility] [address] [place], [place] [id number] Plant Cytologist: Khadar Tang MD NRBC Automated 0.0 per 100 WBC Normal 0.0 [facility] Comment on above: Performed By: #### T ROPI #### [facility] [address] [place], [place] 0303783 Plant Cytologist: Khadar Tang MD Platelet mean volume (Bld) [Entitic vol] 8.9 fL Normal 8.1-13.5 [facility] Comment on above: Performed By: #### T ROPI #### [facility] [address] [place], [place] 6134683 Plant Cytologist: Khadar Tang MD Platelets (Bld) [#/Vol] 223 10*3/uL Normal 138-453 [facility] Comment on above: Performed By: #### T ROPI #### [facility] [address] [place], [place] [id number] Plant Cytologist: Khadar Tang MD RBC (Bld) [#/Vol] 3.21 10*6/uL Low 4.21-5.77 [facility] Comment on above: Performed By: #### T ROPI #### [facility] [address] [place], [place] 5675083 Plant Cytologist: Khadar Tang MD WBC (Bld) [#/Vol] 8.7 10*3/uL Normal 3.5-11.3 [facility] Comment on above: Performed By: #### T ROPI #### [address] [place], [place] [id number] Plant Cytologist: Khadar Tang MD Comp Metabolic Pr/rfx MGon 0 - Albumin [Mass/Vol] 2.8 g/dL Low 3.5-5.2 [facility] Comment on above: Performed By: #### T ROPI #### [facility] [address] [place], [place] [id number] Plant Cytologist: Khadar Tang MD Albumin/Glob Ratio 0.7 Low 1.0-2.5 [facility] Comment on above: Performed By: #### T ROPI #### [facility] [address] [place], [place] [address] Plant Cytologist: Khadar Tang MD Alkaline Phos 75 U/L Normal 40-129 [facility] Comment on above: Performed By: #### T ROPI #### [facility] [address] [place], [place] [id number] Plant Cytologist: Khadar Tang MD ALT [Catalytic activity/Vol] 9 U/L Normal 5-41 [facility] Comment on above: Performed By: #### T ROPI #### [facility] [address] [place], [place] 3672083 Plant Cytologist: Khadar Tang MD Anion gap [Moles/Vol] 6 mmol/L Low 9-17 [facility] Comment on above: Performed By: #### T ROPI #### [facility] [address] [place], [place] 0599583 Plant Cytologist: Khadar Tang MD AST [Catalytic activity/Vol] 10 U/L Normal <40 [facility] Comment on above: Performed By: #### T ROPI #### [facility] [address] [place], [place] 9466483 Plant Cytologist: Khadar Tang MD Bilirubin [Mass/Vol] 0.3 mg/dL Normal 0.3-1.2 [facility] Comment on above: Performed By: #### T ROPI #### [facility] [address] [place], [place] 6952083 Plant Cytologist: Khadar Tang MD BUN/CRE Ratio 20 Normal 9-20 [facility] Comment on above: Performed By: #### T ROPI #### [facility] [address] [place], [place] 4664983 Plant Cytologist: Khadar Tang MD Calcium [Mass/Vol] 8.7 mg/dL Normal 8.6-10.4 [facility] Comment on above: Performed By: #### T ROPI #### [facility] [address] [place], [place] [id number] Plant Cytologist: Khadar Tang MD Chloride [Moles/Vol] 113 mmol/L High 98-107 [facility] Comment on above: Performed By: #### T ROPI #### [facility] [address] [place] [address] Plant Cytologist: Khadar Tang MD CO2 [Moles/Vol] 20 mmol/L Normal 20-31 [facility] Comment on above: Performed By: #### T ROPI #### [facility] [address] [place] [address] Plant Cytologist: Khadar Tang MD Creatinine [Mass/Vol] 0.97 mg/dL Normal 0.70-1.20 [facility] Comment on above: Performed By: #### T ROPI #### [facility] [address] [place] [address] Plant Cytologist: Khadar Tang MD GFR/1.73 sq M.predicted among non-blacks MDRD (S/P/Bld) [Vol rate/Area] mL/min/{1.73_m2} Normal >60 [facility] Comment on above: Result Comment: These [...] secretion. Performed By: #### T ROPI #### [facility] [address] [place], [place] [address] Plant Cytologist: Khadar Tang MD Glucose [Mass/Vol] 144 mg/dL High 70-99 [facility] Comment on above: Performed By: #### T ROPI #### [facility] [address] [place], [place] [address] Plant Cytologist: Khadar Tang MD Potassium [Moles/Vol] 4.5 mmol/L Normal 3.7-5.3 [facility] Comment on above: Performed By: #### T ROPI #### [facility] [address] [place], [place] [address] Plant Cytologist: Khadar Tang MD Protein [Mass/Vol] 6.7 g/dL Normal 6.4-8.3 [facility] Comment on above: Performed By: #### T ROPI #### [facility] [address] [place], [place] [id number] Plant Cytologist: Khadar Tang MD Sodium [Moles/Vol] 139 mmol/L Normal 135-144 [facility] Comment on above: Performed By: #### T ROPI #### [facility] [address] [place] [address] Plant Cytologist: Khadar Tang MD Urea nitrogen [Mass/Vol] 19 mg/dL Normal 8-23 [facility] Comment on above: Performed By: #### T ROPI #### [facility] [address] [place], [place] [address] Plant Cytologist: Khadar Tang MD Comprehensive Metabolic Pane l w/ Reflex to MGon 06-25-2022 Albumin [Mass/Vol] 2.8 g/dL Low 3.5 - 5.2 g/dL [facility] Albumin/Globulin [Mass ratio] 0.7 {ratio} Low 1.0 - 2.5 [facility] ALP [Catalytic activity/Vol] 75 U/L 40 - 129 U/L [facility] ALT [Catalytic activity/Vol] 9 U/L 5 - 41 U/L [facility] Anion gap [Moles/Vol] 6 mmol/L Low 9 - 17 mmol/L [facility] AST [Catalytic activity/Vol] 10 U/L NINF - 40 U/L [facility] Bilirubin [Mass/Vol] 0.3 mg/dL 0.3 - 1 .2 mg/dL [facility] Calcium [Mass/Vol] 8.7 mg/dL 8.6 - 10. 4 mg/dL [facility] Chloride [Moles/Vol] 113 mmol/L High 98 - 10 7 mmol/L [facility] CO2 [Moles/Vol] 20 mmol/L 20 - 31 mmol/L [facility] Creatinine [Mass/Vol] 0.97 mg/dL 0.70 - 1.20 mg/dL [facility] GFR/1.73 sq M.predicted MDRD (S/P/Bld) [Vol rate/Area] - PINF [facility] Comment on above: These results [...] 144 mg/dL High 70 - 99 mg/dL [facility] Interpretation and review of laboratory results Abnormal [facility] Potassium [Moles/Vol] 4.5 mmol/L 3.7 - 5.3 mmol/L [facility] Protein [Mass/Vol] 6.7 g/dL 6.4 - 8.3 g/dL [facility] Sodium [Moles/Vol] 139 mmol/L 135 - 144 mmol/L [facility] Urea nitrogen [Mass/Vol] 19 mg/dL 8 - 23 mg/dL [facility] Urea nitrogen/Creatinine (Bld) [Mass ratio] 20 9 - 20 [facility] Cult,Woundon 06-25-2022 Cult,Wound Specimen Description .BUTTOCK Direct Exam FEW NEUTROPHILS MODERATE GRAM POSITIVE COCCI IN PAIRS MODERATE GRAM POSITIVE RODS Culture NORMAL SKIN ROBBIE Report Status FINAL 06/25/2022 Normal [facility] Comment on above: Performed By: #### T CINDYI #### [facility] [address] [place], [place] [address] Plant Cytologist: Khadar Tang MD EKG Rhythm Stripon 3 [facility] BON [facility] ml [facility] Occult Blood, Fecalon 2022 Occult Blood 1 Negative Normal NEG [facility] Comment on above: Performed By: #### C MPX, CDP #### [facility] [address] [place], [place] [address] Plant Cytologist: Khadar Tang MD Specimen 1 Date [facility] Comment on above: Result Comment: Performed By: #### C MPX, CDP #### [facility] [address] [place], [place] [address] Plant Cytologist: Khadar Tang MD Specimen 1 Time 1943 [facility] Comment on above: Performed By: #### C MPX, CDP #### [facility] [address] [place], [place] [address] Plant Cytologist: Khadar Tang MD Surgical Pathologyon 023 Surgical [...] PATHOLOGY CONSULTATION Patient Name: GANGA STINSON [facility] Rec: [id number] Path Number: [id number] [facility] [employer] [facility] ANATOMIC PATHOLOGY [address] [place] [address]. [place], [place] [address] [facility] Comment on above: Performed By: #### C MPX, CDP #### [facility] [address] [place], [place] [address] Plant Cytologist: Khadar Tang MD TYPE AND SCREENon 06-25-2022 ABO/Rh Negative [facility] Arm Band Number [id number] [facility] Blood Bank Blood Product Expiration Date [id number] [facility] Blood Bank ISBT Product Blood Type 9500 [facility] Blood Bank Unit Type and Rh Negative [facility] Blood product type Nom (BPU) Leukocyte Reduced Red Cell [facility] Blood product unit ID (Dose) [#] [id number] [facility] Crossmatch Result COMPATIBLE [facility] Dispense Status TRANSFUSED [facility] Expiration Date 06/27/2022,2359 [facility] Product Code Blood Bank [id number] [facility] Transfusion Status OK TO TRANSFUSE B ON [facility] Unit Divison 0 [facility] Unit Issue Date/Time [id number] [facility] N [facility] APTTon 06-24-2022 aPTT Coag (Bld) [Time] 35.6 s High 26.8-34.8 [facility] Comment on above: Result Comment: IV Heparin Therapy Range: 62.0-94.0 Performed By: #### C MPX, CDP #### [facility] [address] [place] [address] Dr[address] [place], [place] [id number] Plant Cytologist: Khadar Tang MD B12/Folate Panelon 3 Cobalamin (Vitamin B12) [Mass/Vol] 446 pg/mL Normal 232-1245 [facility] Comment on above: Performed By: #### C MPX, CDP #### [facility] [address] [place] [address] Plant Cytologist: Khadar Tang MD Folic Acid 8.2 ng/mL Normal >4.8 [facility] Comment on above: Performed By: #### C MPX, CDP #### [facility] [address] [place] [address] Plant Cytologist: Khadar Tang MD CBC auto differentialon - Absolute Eos # 0.46 High [facility] Absolute Immature Granulocyte 0.07 [facility] Absolute Lymph # 1.52 [facility] SECO URS [facility] Absolute Alfalfa # 0.53 [facility] RS [facility] Basophils (Bld) [#/Vol] 0.00 10*3/uL [facility] Hematocrit (Bld) [Volume fraction] 21.7 % Low 40.7 - 50.3 % [facility] Hemoglobin (Bld) [Mass/Vol] 6.6 g/dL Critically low 13.0 - 17.0 g/dL [facility] Interpretation and review of laboratory results Abnormal [facility] MCH (RBC) [Entitic mass] 23.4 pg Low 25.2 - 33.5 pg [facility] MCHC (RBC) [Mass/Vol] 30.4 g/dL 28.4 - 34.8 g/dL [facility] MCV (RBC) [Entitic vol] 77.0 fL Low 82.6 - 102.9 fL [facility] Morphology Álvaro (Bld) [Interp] HYPOCHROMIA PRESENT [facility] NRBC Automated 0.0 0.0 per 100 WBC [facility] Platelet distribution width (Bld) [Ratio] 16.2 % High 11.8 - 14.4 % [facility] Platelet mean volume (Bld) [Entitic vol] 8.9 fL 8.1 - 13.5 fL [facility] Platelets (Bld) [#/Vol] 208 10*3/uL [facility] RBC (Bld) [#/Vol] 2.82 10*6/uL Low 4.21 - 5.77 m/uL [facility] Segmented neutrophils/100 WBC (Bld) 61 % 36 - 65 % [facility] Segs Absolute 4.02 [facility] WBC (Bld) [#/Vol] 6.6 10*3/uL [facility] CBC with Diffon 03-29-2023 Abs. Basophil 0.00 k/uL Normal 0.0-0.2 [facility] Comment on above: Performed By: #### C MPX, CDP #### [facility] [address] [place] [address] Plant Cytologist: Khadar Tang MD Abs.Imm.Granulocyte 0.07 k/uL Normal 0.00-0.30 [facility] Comment on above: Performed By: #### C MPX, CDP #### [facility] [address] [place] [address] Plant Cytologist: Khadar Tang MD Abs.Neutrophil (Seg) 4.02 k/uL Normal 1.50-8.10 [facility] Comment on above: Performed By: #### C MPX, CDP #### [facility] [address] [place], [place] [address] Plant Cytologist: Khadar Tang MD Eosinophils (Bld) [#/Vol] 0.46 10*3/uL High 0.00-0.44 [facility] Comment on above: Performed By: #### C MPX, CDP #### [facility] [address] [place] [address] Plant Cytologist: Khadar Tang MD Lymphocytes (Bld) [#/Vol] 1.52 10*3/uL Normal 1.10-3.70 [facility] Comment on above: Performed By: #### C MPX, CDP #### [facility] [address] [place] [address] Plant Cytologist: Khadar Tang MD Monocytes (Bld) [#/Vol] 0.53 10*3/uL Normal 0.10-1.20 [facility] Comment on above: Performed By: #### C MPX, CDP #### [facility] [address] [place] [address] Plant Cytologist: Khadar Tang MD Morphology Álvaro (Bld) [Interp] HYPOCHROMIA Normal [facility] Comment on above: Result Comment: PRES ENT Performed By: #### C MPX, CDP #### [facility] [address] [place] [address] [place] [address] Plant Cytologist: Khadar Tang MD Neutrophil (Seg) 61 % Normal 36-65 [facility] Comment on above: Performed By: #### C MPX, CDP #### [facility] [address] [place] [address] [place] [address] Plant Cytologist: Khadar Tang MD Erythrocyte distribution width (RBC) [Ratio] 16.2 % High 11.8-14.4 [facility] Comment on above: Performed By: #### C MPX, CDP #### [address] [place] [address] Plant Cytologist: Khadar Tang MD Hematocrit (Bld) [Volume fraction] 21.7 % Low 40.7-50.3 [facility] Comment on above: Performed By: #### C MPX, CDP #### [address] [place] [address] Plant Cytologist: Khadar Tang MD Hemoglobin (Bld) [Mass/Vol] 6.6 g/dL Critically low 13.0-17.0 [facility] Comment on above: Performed By: #### C MPX, CDP #### [facility] [address] [place] [address] [place] [address] Plant Cytologist: Khadar Tang MD MCH (RBC) [Entitic mass] 23.4 pg Low 25.2-33.5 [facility] Comment on above: Performed By: #### C MPX, CDP #### [address] [place] [address] Plant Cytologist: Khadar Tang MD MCHC (RBC) [Mass/Vol] 30.4 g/dL Normal 28.4-34.8 [facility] Comment on above: Performed By: #### C MPX, CDP #### [facility] [address] [place], [place] [id number] Plant Cytologist: Khadar Tang MD MCV (RBC) [Entitic vol] 77.0 fL Low 82.6-102.9 [facility] Comment on above: Performed By: #### C MPX, CDP #### [facility] [address] [place], [place] [address]83 Plant Cytologist: Khadar Tang MD NRBC Automated 0.0 per 100 WBC Normal 0.0 [facility] Comment on above: Performed By: #### C MPX, CDP #### [address] [place], [place] [id number] Plant Cytologist: Khadar Tang MD Platelet mean volume (Bld) [Entitic vol] 8.9 fL Normal 8.1-13.5 [facility] Comment on above: Performed By: #### C MPX, CDP #### [address] [place], [place] [id number] Plant Cytologist: Khadar Tang MD Platelets (Bld) [#/Vol] 208 10*3/uL Normal 138-453 [facility] Comment on above: Performed By: #### C MPX, CDP #### [address] [place], [place] [id number] Plant Cytologist: Khadar Tang MD RBC (Bld) [#/Vol] 2.82 10*6/uL Low 4.21-5.77 [facility] Comment on above: Performed By: #### C MPX, CDP #### [facility] [address] [place] [address] Plant Cytologist: Khadar Tang MD WBC (Bld) [#/Vol] 6.6 10*3/uL Normal 3.5-11.3 [facility] Comment on above: Performed By: #### C MPX, CDP #### [facility] [address] [place], [place] [id number] Plant Cytologist: Khadar Tang MD Basophils/100 WBC (Bld) 0 % Normal 0-2 [facility] Comment on above: Performed By: #### C MPX, CDP #### [facility] [address] [place], [place] [address]83 Plant Cytologist: Khadar Tang MD Eosinophils/100 WBC (Bld) 7 % High 1-4 [facility] Comment on above: Performed By: #### C MPX, CDP #### [address] [place], [place] [address]83 Plant Cytologist: Khadar Tang MD Immature granulocytes/100 WBC (Bld) 1 % High 0 [facility] Comment on above: Performed By: #### C MPX, CDP #### [facility] [address] [place] [address] [place] [place], [place] [id number] Plant Cytologist: Khadar Tang MD Lymphocytes/100 WBC (Bld) 23 % Low 24-43 [facility] Comment on above: Performed By: #### C MPX, CDP #### [address] [place], [place] 2011783 Plant Cytologist: Khadar Tang MD Monocytes/100 WBC (Bld) 8 % Normal 3-12 [facility] Comment on above: Performed By: #### C MPX, CDP #### [facility] [address] [place] [address] Plant Cytologist: Khadar Tang MD Comp Metabolic Pr/rfx MGon 0 06-24-2022 Albumin [Mass/Vol] 2.4 g/dL Low 3.5-5.2 [facility] Comment on above: Performed By: #### C MPX, CDP #### [facility] [address] [place], [place] [address]83 Plant Cytologist: Khadar Tang MD Albumin/Glob Ratio 0.6 Low 1.0-2.5 [facility] Comment on above: Performed By: #### C MPX, CDP #### [facility] [address] [place], [place] [address]83 Plant Cytologist: Khadar Tang MD Alkaline Phos 75 U/L Normal 40-129 [facility] Comment on above: Performed By: #### C MPX, CDP #### [facility] [address] [place], [place] [address]83 Plant Cytologist: Khadar Tang MD ALT [Catalytic activity/Vol] 9 U/L Normal 5-41 [facility] Comment on above: Performed By: #### C MPX, CDP #### [facility] [address] [place], [place] 1052983 Plant Cytologist: Khadar Tang MD Anion gap [Moles/Vol] 7 mmol/L Low 9-17 [facility] Comment on above: Performed By: #### C MPX, CDP #### [facility] [address] [place], [place] 512[address]83 Plant Cytologist: Khadar Tang MD AST [Catalytic activity/Vol] 11 U/L Normal <40 [facility] Comment on above: Performed By: #### C MPX, CDP #### [facility] [address] [place], [place] [address]38283 Plant Cytologist: Khadar Tang MD Bilirubin [Mass/Vol] mg/dL Low 0.3-1.2 [facility] Comment on above: Performed By: #### C MPX, CDP #### [facility] [address] [place], [place] [id number] Plant Cytologist: Khadar Tang MD BUN/CRE Ratio 23 High 9-20 [facility] Comment on above: Performed By: #### C MPX, CDP #### [facility] [address] [place] [address] Plant Cytologist: Khadar Tang MD Calcium [Mass/Vol] 8.5 mg/dL Low 8.6-10.4 [facility] Comment on above: Performed By: #### C MPX, CDP #### [facility] [address] [place], [place] 5605183 Plant Cytologist: Khadar Tang MD Chloride [Moles/Vol] 115 mmol/L High 98-107 [facility] Comment on above: Performed By: #### C MPX, CDP #### [facility] [address] [place] [address] Plant Cytologist: Khadar Tang MD CO2 [Moles/Vol] 18 mmol/L Low 20-31 [facility] Comment on above: Performed By: #### C MPX, CDP #### [facility] [address] [place] [address] Plant Cytologist: Khadar Tang MD Creatinine [Mass/Vol] 1.11 mg/dL Normal 0.70-1.20 [facility] Comment on above: Performed By: #### C MPX, CDP #### [facility] [address] [place] [address] Plant Cytologist: Khadar Tang MD GFR/1.73 sq M.predicted among non-blacks MDRD (S/P/Bld) [Vol rate/Area] mL/min/{1.73_m2} Normal >60 [facility] Comment on above: Result Comment: These [...] Performed By: #### C MPX, CDP #### [facility] [address] [place], [place] [id number] Plant Cytologist: Khadar Tang MD Glucose [Mass/Vol] 137 mg/dL High 70-99 [facility] Comment on above: Performed By: #### C MPX, CDP #### [facility] [address] [place], [place] [address]83 Plant Cytologist: Khadar Tang MD Potassium [Moles/Vol] 4.9 mmol/L Normal 3.7-5.3 [facility] Comment on above: Performed By: #### C MPX, CDP #### [facility] [address] [place], [place] 4344383 Plant Cytologist: Khadar Tang MD Protein [Mass/Vol] 6.3 g/dL Low 6.4-8.3 [facility] Comment on above: Performed By: #### C MPX, CDP #### [facility] [address] [place], [place] [address]25[address]83 Plant Cytologist: Khadar Tang MD Sodium [Moles/Vol] 140 mmol/L Normal 135-144 [facility] Comment on above: Performed By: #### C MPX, CDP #### [facility] [address] [place], [place] [address]164183 Plant Cytologist: Khadar Tang MD Urea nitrogen [Mass/Vol] 26 mg/dL High 8-23 [facility] Comment on above: Performed By: #### C MPX, CDP #### [facility] [address] [place] [address] Plant Cytologist: Khadar Tang MD Comprehensive Metabolic Pane l w/ Reflex to MGon 06-24-2022 Albumin [Mass/Vol] 2.4 g/dL Low 3.5 - 5.2 g/dL [facility] Albumin/Globulin [Mass ratio] 0.6 {ratio} Low 1.0 - 2.5 [facility] ALP [Catalytic activity/Vol] 75 U/L 40 - 129 U/L [facility] ALT [Catalytic activity/Vol] 9 U/L 5 - 41 U/L [facility] Anion gap [Moles/Vol] 7 mmol/L Low 9 - 17 mmol/L [facility] AST [Catalytic activity/Vol] 11 U/L NINF - 40 U/L [facility] Bilirubin [Mass/Vol] mg/dL Low 0.3 - 1 .2 mg/dL [facility] Calcium [Mass/Vol] 8.5 mg/dL Low 8.6 - 10. 4 mg/dL [facility] Chloride [Moles/Vol] 115 mmol/L High 98 - 10 7 mmol/L [facility] CO2 [Moles/Vol] 18 mmol/L Low 20 - 31 mmol/L [facility] Creatinine [Mass/Vol] 1.11 mg/dL 0.70 - 1.20 mg/dL [facility] GFR/1.73 sq M.predicted MDRD (S/P/Bld) [Vol rate/Area] - PINF [facility] Comment on above: These results [...] 137 mg/dL High 70 - 99 mg/dL [facility] Interpretation and review of laboratory results Abnormal [facility] Potassium [Moles/Vol] 4.9 mmol/L 3.7 - 5.3 mmol/L [facility] Protein [Mass/Vol] 6.3 g/dL Low 6.4 - 8.3 g/dL [facility] Sodium [Moles/Vol] 140 mmol/L 135 - 144 mmol/L [facility] Urea nitrogen [Mass/Vol] 26 mg/dL High 8 - 23 mg/dL [facility] Urea nitrogen/Creatinine (Bld) [Mass ratio] 23 High 9 - 20 [facility], Wound Aerobic Onlyo n 06-24-2022 Interpretation and review of laboratory results Abnormal [facility] Microorganism identified Cx Nom (Unsp spec) NORMAL SKIN ROBBIE [facility] Microorganism or agent identified Nom (Unsp spec) FEW NEUTROPHILS Abnormal [facility] Specimen Description .BUTTOCK [facility] EKG 12 Leadon 06-24-2022 Atrial Rate 64 BPM [facility] Work Phone: P Vilas 51 degrees [facility] Work Phone: P-R Interval 174 ms [facility] Work Phone: Q-T Interval 394 ms [facility] Work Phone: QRS Duration 94 ms [facility] Work Phone: QTc Calculation (Bazett) 406 ms [facility] Work Phone: R Vilas 20 degrees [facility] Work Phone: T Vilas 22 degrees [facility] Work Phone: Ventricular Rate 64 BPM [facility] Work Phone: Normal sinus rhythm Inferior infarct , age undetermined Abnormal ECG When compared with ECG of 22-JUN-2022 17:28, Minimal criteria for Inferior infarct is now Present Confirmed by Michelle Noe MD ([id number]) on 06/24/2022 10:31:37 PM [facility] RADIOLOG[facility] Michelle Noe MD - 06/24/2022 Normal sinus rhythm Inferior infarct , age undetermined Abnormal ECG When compared with ECG of 22-JUN-2022 17:28, Minimal criteria for Inferior infarct is now Present Confirmed by Michelle Noe MD ([id number]) on 06/24/2022 10:31:37 PM [facility] Work Phone: [facility] Work Phone: EKG Rhythm Stripon 3 [facility] ML [facility] Echocardiogram complete 2D w ith doppler with coloron 06-24-2022 Left ventricular Ejection fraction 60 [facility] Work Phone: LVEF MODALITY ECHO [facility] Work Phone: [facility] Transthoracic Echocardiography Report (TTE) Patient Name ALLOWAY Date of Study 06/24/2022 GANGA Evans Date of 1960 Gender Male Age 61 year(s) Race Room Number 0334 Height: 71 inch, 180.34 cm Corporate ID [id number] Weight: 252 pounds, 114.3 kg # Patient Acct [id number] BSA: 2.33 m^2 BMI: 35.15 kg/m^2 # MR # [id number] Material Damage Appraiser Jeanette Clarke Interpreting Physician Michelle Noe Fellow Referring Nurse Shelly Mondragon, Practitioner DOLLY Interpreting Referring Physician Fellow Type of Study TTE procedure:2D Echocardiogram, M-Mode, Doppler, Color Doppler. Procedure Date Date: 06/24/2022 Start: 09:47 AM Study Location: [facility] Indications:Abnormal ECG. History / Tech. Comments: [...] MD / Result, Unknown Provider - 06/24/2022 [facility] Transthoracic Echocardiography Report (TTE) Patient Name ALLOWAY Date of Study 06/24/2022 GANGA Evans Date of 1960 Gender Male Age 61 year(s) Race Room Number 0334 Height: 71 inch, 180.34 cm Corporate ID [id number] Weight: 252 pounds, 114.3 kg # Patient Acct [id number] BSA: 2.33 m^2 BMI: 35.15 kg/m^2 # MR # [id number] Material Damage Appraiser Jeanette Clarke Interpreting Physician Michelle Noe Fellow Referring Nurse Shelly Mondragon, Practitioner DOLLY Interpreting Referring Physician Fellow Type of Study TTE procedure:2D Echocardiogram, M-Mode, Doppler, Color Doppler. Procedure Date Date: 06/24/2022 Start: 09:47 AM Study Location: [facility] Indications:Abnormal ECG. History / Tech. Comments: [...] Wall E' velocity:0.13 m/s Lateral Wall E/E':9.8 [facility] Work Phone: [facility] Work Phone: Glucose, Whole Bloodon 06-24 Glucose [Mass/Vol] 114 mg/dL High 74 - 100 mg/dL [facility] Interpretation and review of laboratory results Abnormal [facility] Hemoglobin and Hematocriton 06-24-2022 Hematocrit (Bld) [Volume fraction] 25.1 % Low 40.7 - 50.3 % [facility] Hemoglobin (Bld) [Mass/Vol] 7.8 g/dL Low 13.0 - 17.0 g/dL [facility] Interpretation and review of laboratory results Abnormal [facility] Hgb/Hcton 06-24-2022 Hematocrit (Bld) [Volume fraction] 25.1 % Low 40.7-50.3 [facility] Comment on above: Performed By: #### C MPX, CDP #### [facility] [address] [place] [address] Plant Cytologist: Khadar Tang MD Hemoglobin (Bld) [Mass/Vol] 7.8 g/dL Low 13.0-17.0 [facility] Comment on above: Performed By: #### C MPX, CDP #### [facility] [address] [place] [address] Plant Cytologist: Khadar Tang MD Iron Binding Cap.on 06-25-19 23 % Fe Saturation 19 % Low 20-55 [facility] Comment on above: Performed By: #### C MPX, CDP #### [facility] [address] [place] [address] Plant Cytologist: Khadar Tang MD Iron [Mass/Vol] 33 ug/dL Low 59-158 [facility] Comment on above: Performed By: #### C MPX, CDP #### [facility] [address] [place] [address] Plant Cytologist: Khadar Tang MD Total Fe Binding Cap 175 ug/dL Low 250-450 [facility] Comment on above: Performed By: #### C MPX, CDP #### [facility] [address] [place], [place] [address] Plant Cytologist: Khadar Tang MD Unbound Fe Bind Cap 142 ug/dL Normal 112-347 [facility] Comment on above: Performed By: #### C MPX, CDP #### [facility] [address] [place] [address] Plant Cytologist: Khadar Tang MD Iron and TIBCon 06-24-2022 Interpretation and review of laboratory results Abnormal [facility] Iron [Mass/Vol] 33 ug/dL Low 59 - 158 ug/dL [facility] Iron binding capacity [Mass/Vol] 175 ug/dL Low 250 - 450 ug/dL [facility] Iron Saturation 19 % Low 20 - 55 % [facility] UIBC 142 ug/dL 112 - 347 ug/dL [facility] Laboratory - Microbiology an d Antimicrobial susceptibilityon 06-24-2022 Microorganism or agent identified Nom (Unsp spec) Positive Abnormal [facility] Lipid Panelon 06-24-2022 Cholesterol [Mass/Vol] 147 mg/dL NINF - 200 mg/dL [facility] Comment on above: Cholesterol Guidelines: <200 Desirable 200-240 Borderline >240 Undesirable Cholesterol in HDL [Mass/Vol] 28 mg/dL Low 40 - PINF mg/dL [facility] Comment on above: HDL Guidelines: <40 Undesirable 40-59 Borderline >59 Desirable Cholesterol in LDL [Mass/Vol] 98 mg/dL 0 - 130 mg/dL [facility] Comment on above: LDL Guidelines: <100 Desirable 100-129 Near to/above Desirable 130-159 Borderline >159 Undesirable Direct (measured) LDL and calculated LDL are not interchangeable tests. Cholesterol.total/Cho lesterol in HDL [Mass ratio] 5.3 {ratio} High NINF - 5 [facility] Interpretation and review of laboratory results Abnormal [facility] Triglyceride [Mass/Vol] 107 mg/dL NINF - 150 mg/dL [facility] Comment on above: Triglyceride Guidelines: <150 Desirable 150-199 Borderline 200-499 High >499 Very high Based on AHA Guidelines for fasting triglyceride, December 2011. [facility] Lipid Profileon 06-24-2022 Cholesterol [Mass/Vol] 147 mg/dL Normal <200 [facility] Comment on above: Result Comment: Cholesterol Guidelines: <200 Desirable 200-240 Borderline >240 Undesirable Performed By: #### T ROPI #### [facility] [address] [place], [place] [id number] Plant Cytologist: Khadar Tang MD Cholesterol in HDL [Mass/Vol] 28 mg/dL Low >40 [facility] Comment on above: Result Comment: HDL Guidelines: <40 Undesirable 40-59 Borderline >59 Desirable Performed By: #### T ROPI #### [facility] [address] [place], [place] [address] Plant Cytologist: Khadar Tang MD Cholesterol in LDL [Mass/Vol] 98 mg/dL Normal 0-130 [facility] Comment on above: Result Comment: LDL Guidelines: <100 Desirable 100-129 Near to/above Desirable 130-159 Borderline >159 Undesirable Direct (measured) LDL and calculated LDL are not interchangeable tests. Performed By: #### T ROPI #### [facility] [address] [place], [place] [id number] Plant Cytologist: Khadar Tang MD Cholesterol.total/Cho lesterol in HDL [Mass ratio] 5.3 {ratio} High <5 [facility] Comment on above: Performed By: #### T ROPI #### [facility] [address] [place], [place] [address] Plant Cytologist: Khadar Tang MD Triglyceride [Mass/Vol] 107 mg/dL Normal <150 [facility] Comment on above: Result Comment: Triglyceride Guidelines: <150 Desirable 150-199 Borderline 200-499 High >499 Very high Based on AHA Guidelines for fasting triglyceride, December 2011. Performed By: #### T ROPI #### [facility] [address] [place], [place] [address] Plant Cytologist: Khadar Tang MD PTon 06-24-2022 INR Coag (PPP) [Relative time] 1.1 {INR} Normal [facility] Comment on above: Result Comment: Therapeutic Range: Moderate Anticoagulant Intensity: INR = 2.0-3.0 High Anticoagulant Intensity: INR = 2.5-3.5 Performed By: #### C MPX, CDP #### [facility] [address] [place] [address] Plant Cytologist: Khadar Tang MD PT Coag (PPP) [Time] 14.8 s Normal 11.9-14.8 [facility] Comment on above: Performed By: #### C MPX, CDP #### [facility] [address] [place], [place] [address] Plant Cytologist: Khadar Tang MD PTTon 06-24-2022 aPTT Coag (Bld) [Time] 35.6 s High [facility] Comment on above: IV Heparin Therapy Range: 62.0-94.0 Interpretation and review of laboratory results Abnormal [facility] Protime-INRon 06-24-2022 INR Coag (PPP) [Relative time] 1.1 {INR} [facility] Comment on above: Therapeutic Range: Moderate Anticoagulant Intensity: INR = 2.0-3.0 High Anticoagulant Intensity: INR = 2.5-3.5 PT Coag (PPP) [Time] 14.8 s [facility] Troponinon 06-24-2022 Troponin, High Sens 57 ng/L Critically high 0-22 [facility] Comment on above: Result Comment: High Sensitivity Troponin values cannot be compared with other Troponin methodologies. Performed By: #### C MPX, CDP #### [facility] [address] [place] [address] [place], [place] [address] Plant Cytologist: Khadar Tang MD Interpretation and review of laboratory results Abnormal [facility] Troponin I.cardiac DL <= 0.01 ng/mL [Mass/Vol] 57 ng/L Critically high 0 - 22 ng/L [facility] Comment on above: High Sensitivity Tro ponin values cannot be compared with other Troponin methodologies. [facility] Troponin, High Sens 58 ng/L Critically high 0-22 [facility] Comment on above: Result Comment: High Sensitivity Troponin values cannot be compared with other Troponin methodologies. Performed By: #### T CINDYI #### [facility] [address] [place], [place] [address] Plant Cytologist: Khadar Tang MD Interpretation and review of laboratory results Abnormal [facility] Troponin I.cardiac DL <= 0.01 ng/mL [Mass/Vol] 58 ng/L Critically high 0 - 22 ng/L [facility] Comment on above: High Sensitivity Tro ponin values cannot be compared with other Troponin methodologies. [facility] Troponin, High Sens 59 ng/L Critically high 0-22 [facility] Comment on above: Result Comment: High Sensitivity Troponin values cannot be compared with other Troponin methodologies. Performed By: #### C FIFI, CDP #### [facility] [address] [place], [place] [address] Plant Cytologist: Khadar Tang MD Interpretation and review of laboratory results Abnormal [facility] Troponin I.cardiac DL <= 0.01 ng/mL [Mass/Vol] 59 ng/L Critically high 0 - 22 ng/L [facility] Comment on above: High Sensitivity Tro ponin values cannot be compared with other Troponin methodologies. [facility] Type + Screenon 06-24-2022 Type + Screen Sample Expiration 06/27/2022,2359 Arm Band Number [id number] ABO/Rh(D) A NEGATIVE Antibody Screen NEGATIVE Unit Number [id number] Blood Component Type Leukocyte Reduced Red Cell Unit Division 00 Status of Unit TRANSFUSED Transfusion Status OK TO TRANSFUSE Crossmatch Result COMPATIBLE Normal [facility] Comment on above: Performed By: #### C MPX, CDP #### [facility] [address] [place], [place] [address] Plant Cytologist: Khadar Tang MD Vitamin B12 & Folateon 06-24 Cobalamin (Vitamin B12) [Mass/Vol] 446 pg/mL 232 - 1245 pg/mL [facility] Folate [Mass/Vol] 8.2 ng/mL 4.8 - PINF ng/mL [facility] CBC auto differentialon 05-28 Absolute Eos # 0.65 High [facility] Absolute Immature Granulocyte 0.06 [facility] Absolute Lymph # 1.94 [facility] Absolute Alfalfa # 0.72 [facility] RS [facility] Basophils (Bld) [#/Vol] 0.04 10*3/uL [facility] Basophils/100 WBC (Bld) 0 % 0 - 2 % [facility] Eosinophils/100 WBC (Bld) 7 % High 1 - 4 % [facility] Hematocrit (Bld) [Volume fraction] 25.0 % Low 40.7 - 50.3 % [facility] Hemoglobin (Bld) [Mass/Vol] 7.5 g/dL Low 13.0 - 17.0 g/dL [facility] Immature granulocytes/100 WBC (Bld) 1 % High 0 [facility] Interpretation and review of laboratory results Abnormal [facility] Lymphocytes/100 WBC (Bld) 22 % Low 24 - 43 % [facility] MCH (RBC) [Entitic mass] 23.3 pg Low 25.2 - 33.5 pg [facility] MCHC (RBC) [Mass/Vol] 30.0 g/dL 28.4 - 34.8 g/dL [facility] MCV (RBC) [Entitic vol] 77.6 fL Low 82.6 - 102.9 fL [facility] Monocytes/100 WBC (Bld) 8 % 3 - 12 % [facility] NRBC Automated 0.0 0.0 per 100 WBC [facility] Platelet distribution width (Bld) [Ratio] 16.4 % High 11.8 - 14.4 % [facility] Platelet mean volume (Bld) [Entitic vol] 8.7 fL 8.1 - 13.5 fL [facility] Platelets (Bld) [#/Vol] 263 10*3/uL [facility] RBC (Bld) [#/Vol] 3.22 10*6/uL Low 4.21 - 5.77 m/uL [facility] Segmented neutrophils/100 WBC (Bld) 62 % 36 - 65 % [facility] Segs Absolute 5.55 [facility] WBC (Bld) [#/Vol] 9.0 10*3/uL [facility] CBC with Diffon 06-23-2022 Abs. Basophil 0.04 k/uL Normal 0.00-0.20 [facility] Comment on above: Performed By: #### C MPX, CDP #### [address] [place] [address] Plant Cytologist: Khadar Tang MD Abs.Imm.Granulocyte 0.06 k/uL Normal 0.00-0.30 [facility] Comment on above: Performed By: #### C MPX, CDP #### [facility] [address] [place] [address] [address]. [place], [place] [id number] Plant Cytologist: Khadar Tang MD Abs.Neutrophil (Seg) 5.55 k/uL Normal 1.50-8.10 [facility] Comment on above: Performed By: #### C MPX, CDP #### [address] [place], [place] [id number] Plant Cytologist: Khadar Tang MD Basophils/100 WBC (Bld) 0 % Normal 0-2 [facility] Comment on above: Performed By: #### C MPX, CDP #### [facility] [address] [place], [place] [id number] Plant Cytologist: Khadar Tang MD Eosinophils (Bld) [#/Vol] 0.65 10*3/uL High 0.00-0.44 [facility] Comment on above: Performed By: #### C MPX, CDP #### [facility] [address] [place] [address] [place] [address] Plant Cytologist: Khadar Tang MD Eosinophils/100 WBC (Bld) 7 % High 1-4 [facility] Comment on above: Performed By: #### C MPX, CDP #### [facility] [address] [place], [place] [id number] Plant Cytologist: Khadar Tang MD Erythrocyte distribution width (RBC) [Ratio] 16.4 % High 11.8-14.4 [facility] Comment on above: Performed By: #### C MPX, CDP #### [facility] [address] [place], [place] [id number] Plant Cytologist: Khadar Tang MD Hematocrit (Bld) [Volume fraction] 25.0 % Low 40.7-50.3 [facility] Comment on above: Performed By: #### C MPX, CDP #### [address] [place] [address] Plant Cytologist: Khadar Tang MD Hemoglobin (Bld) [Mass/Vol] 7.5 g/dL Low 13.0-17.0 [facility] Comment on above: Performed By: #### C MPX, CDP #### [address] [place] [address] Plant Cytologist: Khadar Tang MD Immature granulocytes/100 WBC (Bld) 1 % High 0 [facility] Comment on above: Performed By: #### C MPX, CDP #### [facility] [address] [place] [address] Dr. [place], [place] [id number] Plant Cytologist: Khadar Tang MD Lymphocytes (Bld) [#/Vol] 1.94 10*3/uL Normal 1.10-3.70 [facility] Comment on above: Performed By: #### C MPX, CDP #### [facility] [address] [place], [place] [address] Plant Cytologist: Khadar Tang MD Lymphocytes/100 WBC (Bld) 22 % Low 24-43 [facility] Comment on above: Performed By: #### C MPX, CDP #### [facility] [address] [place], [place] [address] Plant Cytologist: Khadar Tang MD MCH (RBC) [Entitic mass] 23.3 pg Low 25.2-33.5 [facility] Comment on above: Performed By: #### C MPX, CDP #### [facility] [address] [place] [address] Dr. [place], [facility]83 Plant Cytologist: Khadar Tang MD MCHC (RBC) [Mass/Vol] 30.0 g/dL Normal 28.4-34.8 [facility] Comment on above: Performed By: #### C MPX, CDP #### [address] [place] [address] Plant Cytologist: Khadar Tang MD MCV (RBC) [Entitic vol] 77.6 fL Low 82.6-102.9 [facility] Comment on above: Performed By: #### C MPX, CDP #### [address] [place] [address] Plant Cytologist: Khadar Tang MD Monocytes (Bld) [#/Vol] 0.72 10*3/uL Normal 0.10-1.20 [facility] Comment on above: Performed By: #### C MPX, CDP #### [facility] [address] [place] [address] [place], [place] [address] Plant Cytologist: Khadar Tang MD Monocytes/100 WBC (Bld) 8 % Normal 3-12 [facility] Comment on above: Performed By: #### C MPX, CDP #### [facility] [address] [place], [place] [address] Plant Cytologist: Khadar Tang MD Neutrophil (Seg) 62 % Normal 36-65 [facility] Comment on above: Performed By: #### C MPX, CDP #### [facility] [address] [place], [place] [id number] Plant Cytologist: Khadar Tang MD NRBC Automated 0.0 per 100 WBC Normal 0.0 [facility] Comment on above: Performed By: #### C MPX, CDP #### [address] [place], [place] [id number] Plant Cytologist: Khadar Tang MD Platelet mean volume (Bld) [Entitic vol] 8.7 fL Normal 8.1-13.5 [facility] Comment on above: Performed By: #### C MPX, CDP #### [address] [place], [place] [id number] Plant Cytologist: Khadar Tang MD Platelets (Bld) [#/Vol] 263 10*3/uL Normal 138-453 [facility] Comment on above: Performed By: #### C MPX, CDP #### [address] [place], [place] 1469283 Plant Cytologist: Khadar Tang MD RBC (Bld) [#/Vol] 3.22 10*6/uL Low 4.21-5.77 [facility] Comment on above: Performed By: #### C MPX, CDP #### [address] [place], [place] 1557283 Plant Cytologist: Khadar Tang MD WBC (Bld) [#/Vol] 9.0 10*3/uL Normal 3.5-11.3 [facility] Comment on above: Performed By: #### C MPX, CDP #### [address] [place] [address] Plant Cytologist: Khadar Tang MD Comp Metabolic Pr/rfx MGon 0 06-23-2022 Albumin [Mass/Vol] 2.9 g/dL Low 3.5-5.2 [facility] Comment on above: Performed By: #### C MPX, CDP #### [facility] [address] [place], [place] [id number] Plant Cytologist: Khadar Tang MD Albumin/Glob Ratio 0.7 Low 1.0-2.5 [facility] Comment on above: Performed By: #### C MPX, CDP #### [facility] [address] [place], [place] 7[address]83 Plant Cytologist: Khadar Tang MD Alkaline Phos 89 U/L Normal 40-129 [facility] Comment on above: Performed By: #### C MPX, CDP #### [facility] [address] [place], [place] [address]65[address] Plant Cytologist: Khadar Tang MD ALT [Catalytic activity/Vol] 11 U/L Normal 5-41 [facility] Comment on above: Performed By: #### C MPX, CDP #### [facility] [address] [place], [place] [address]88183 Plant Cytologist: Khadar Tang MD Anion gap [Moles/Vol] 8 mmol/L Low 9-17 [facility] Comment on above: Performed By: #### C MPX, CDP #### [facility] [address] [place] [address] [address]. [place], [place] 9633283 Plant Cytologist: Khadar Tang MD AST [Catalytic activity/Vol] 12 U/L Normal <40 [facility] Comment on above: Performed By: #### C MPX, CDP #### [facility] [address] [place], [place] [id number] Plant Cytologist: Khadar Tang MD Bilirubin [Mass/Vol] 0.2 mg/dL Low 0.3-1.2 [facility] Comment on above: Performed By: #### C MPX, CDP #### [facility] [address] [place], [place] 9555783 Plant Cytologist: Khadar Tang MD BUN/CRE Ratio 25 High 9-20 [facility] Comment on above: Performed By: #### C MPX, CDP #### [facility] [address] [place], [place] [address] Plant Cytologist: Khadar Tang MD Calcium [Mass/Vol] 9.0 mg/dL Normal 8.6-10.4 [facility] Comment on above: Performed By: #### C MPX, CDP #### [facility] [address] [place], [place] 3719183 Plant Cytologist: Khadar Tang MD Chloride [Moles/Vol] 115 mmol/L High 98-107 [facility] Comment on above: Performed By: #### C MPX, CDP #### [facility] [address] [place], [place] 1769683 Plant Cytologist: Khadar Tang MD CO2 [Moles/Vol] 17 mmol/L Low 20-31 [facility] Comment on above: Performed By: #### C MPX, CDP #### [facility] [address] [place], [place] 8297983 Plant Cytologist: Khadar Tang MD Creatinine [Mass/Vol] 1.55 mg/dL High 0.70-1.20 [facility] Comment on above: Performed By: #### C MPX, CDP #### [facility] [address] [place], [place] 5507983 Plant Cytologist: Khadar Tang MD GFR/1.73 sq M.predicted among non-blacks MDRD (S/P/Bld) [Vol rate/Area] 51 mL/min/{1.73_m2} Low >60 [facility] Comment on above: Result Comment: These [...] Performed By: #### C MPX, CDP #### [facility] [address] [place] [address] Plant Cytologist: Khadar Tang MD Glucose [Mass/Vol] 119 mg/dL High 70-99 [facility] Comment on above: Performed By: #### C MPX, CDP #### [facility] [address] [place], [place] 1565583 Plant Cytologist: Khadar Tang MD Potassium [Moles/Vol] 5.4 mmol/L High 3.7-5.3 [facility] Comment on above: Performed By: #### C MPX, CDP #### [facility] [address] [place], [place] 1490383 Plant Cytologist: Khadar Tang MD Protein [Mass/Vol] 7.1 g/dL Normal 6.4-8.3 [facility] Comment on above: Performed By: #### C MPX, CDP #### [facility] [address] [place], [place] 9857183 Plant Cytologist: Khadar Tang MD Sodium [Moles/Vol] 140 mmol/L Normal 135-144 [facility] Comment on above: Performed By: #### C MPX, CDP #### [facility] [address] [place], [place] 8750483 Plant Cytologist: Khadar Tang MD Urea nitrogen [Mass/Vol] 38 mg/dL High 8-23 [facility] Comment on above: Performed By: #### C MPX, CDP #### [facility] [address] [place], [place] [address] Plant Cytologist: Khadar Tang MD Comprehensive Metabolic Pane l w/ Reflex to MGon 06-23-2022 Albumin [Mass/Vol] 2.9 g/dL Low 3.5 - 5.2 g/dL [facility] Albumin/Globulin [Mass ratio] 0.7 {ratio} Low 1.0 - 2.5 [facility] ALP [Catalytic activity/Vol] 89 U/L 40 - 129 U/L [facility] ALT [Catalytic activity/Vol] 11 U/L 5 - 41 U/L [facility] Anion gap [Moles/Vol] 8 mmol/L Low 9 - 17 mmol/L [facility] AST [Catalytic activity/Vol] 12 U/L NINF - 40 U/L [facility] Bilirubin [Mass/Vol] 0.2 mg/dL Low 0.3 - 1 .2 mg/dL [facility] Calcium [Mass/Vol] 9.0 mg/dL 8.6 - 10. 4 mg/dL [facility] Chloride [Moles/Vol] 115 mmol/L High 98 - 10 7 mmol/L [facility] CO2 [Moles/Vol] 17 mmol/L Low 20 - 31 mmol/L [facility] Creatinine [Mass/Vol] 1.55 mg/dL High 0.70 - 1.20 mg/dL [facility] GFR/1.73 sq M.predicted MDRD (S/P/Bld) [Vol rate/Area] 51 mL/min/{1.73_m2} Low - PINF [facility] Comment on above: These results [...] 119 mg/dL High 70 - 99 mg/dL [facility] Interpretation and review of laboratory results Abnormal [facility] Potassium [Moles/Vol] 5.4 mmol/L High 3.7 - 5.3 mmol/L [facility] Protein [Mass/Vol] 7.1 g/dL 6.4 - 8.3 g/dL [facility] Sodium [Moles/Vol] 140 mmol/L 135 - 144 mmol/L [facility] Urea nitrogen [Mass/Vol] 38 mg/dL High 8 - 23 mg/dL [facility] Urea nitrogen/Creatinine (Bld) [Mass ratio] 25 High 9 - 20 [facility] EKG 12 LeadOrdered By: Michelle de la rosa on 06-23-2022 Atrial Rate 60 BPM [employer] [facility] Work Phone: P Vilas 55 degrees [employer] Work Phone: P-R Interval 182 ms [employer] Work Phone: Q-T Interval 388 ms [employer] [facility] Work Phone: QRS Duration 88 ms [facility] Work Phone: QTc Calculation (Bazett) 388 ms [facility] Work Phone: R Vilas 15 degrees [employer] [facility] Work Phone: T Vilas 40 degrees [facility] Work Phone: Ventricular Rate 60 BPM [employer] Work Phone: [facility] Work Phone: EKG 12 Leadon 06-23-2022 Poor data qualit y, interpretation may be adversely affected Normal sinus rhythm Normal ECG When compared with ECG of 22-JUN-2022 13:14, (unconfirmed) Borderline criteria for Anterolateral infarct are no longer Present Criteria for Inferior infarct are no longer Present T wave inversion no longer evident in Inferior leads Confirmed by Michelle Noe MD ([id number]) on 06/23/2022 3:18:16 PM [facility] Michelle Noe MD - 06/23/2022 Poor data quality, interpretation may be adversely affected Normal sinus rhythm Normal ECG When compared with ECG of 22-JUN-2022 13:14, (unconfirmed) Borderline criteria for Anterolateral infarct are no longer Present Criteria for Inferior infarct are no longer Present T wave inversion no longer evident in Inferior leads Confirmed by Michelle Noe MD ([id number]) on 06/23/2022 3:18:16 PM [facility] Work Phone: EKG Rhythm Stripon 3 [facility] Glucose, Whole Bloodon 06-23 Glucose [Mass/Vol] 230 mg/dL High 74 - 100 mg/dL [facility] Interpretation and review of laboratory results Abnormal [facility] Urinalysison 06-23-2022 Bilirubin Urine Negative NEGATIVE [facility] Color, UA Yellow Yellow [facility] Glucose Auto test strip (U) [Mass/Vol] Negative NEGATIVE [facility] Ketones (U) [Mass/Vol] Negative NEGATIVE [facility] Leukocyte esterase Auto test strip Ql (U) Negative NEGATIVE [facility] Nitrite Auto test strip Ql (U) Negative NEGATIVE [facility] Protein (U) [Mass/Vol] 6.0 mg/dL 5.0 - 9.0 [facility] Protein (U) [Mass/Vol] Negative NEGATIVE [facility] Specific Beverly, UA 1.020 1.010 - 1.020 [facility] Turbidity UA Clear Clear [facility] Urine Hgb Negative NEGATIVE [facility] Urobilinogen, Urine Normal Normal [facility] Urinalysis, Routineon 2022 Bilirubin, SemiQt,Ur Negative Normal NEG [facility] Comment on above: Performed By: #### U A #### [facility] [address] [place] [address] [place] [place], [place] [address] Plant Cytologist: Khadar aTng MD Blood, Urine Negative Normal NEG [facility] Comment on above: Performed By: #### U A #### [facility] [address] [place] [address] Plant Cytologist: Khadar Tang MD Clarity (U) Clear Normal CLEAR [facility] Comment on above: Performed By: #### U A #### [facility] [address] [place] [address] [address] [place], [place] [id number] Plant Cytologist: Khadar Tang MD Color (U) Yellow Normal YEL [facility] [facility] Comment on above: Performed By: #### U A #### [facility] [address] [place] [address] [place] [address] Plant Cytologist: Khadar Tang MD Glucose Ql (U) Negative Normal NEG [facility] in Hospital Comment on above: Performed By: #### U A #### [facility] [address] [place] [address] [place] [address] Plant Cytologist: Khadar Tang MD Ketones Ql (U) Negative Normal NEG [facility] Comment on above: Performed By: #### U A #### [address] [place] [address] [place] [address] Plant Cytologist: Khadar Tang MD Leukocyte esterase Test strip Ql (U) Negative Normal NEG [facility] Comment on above: Performed By: #### U A #### [facility] [address] [place] [address] Dr. [place], [place] [id number] Plant Cytologist: Khadar Tang MD Nitrite,Ur Negative Normal [facility] Comment on above: Performed By: #### U A #### [facility] [address] [place] [address] Dr. [place], [place] [id number] Plant Cytologist: Khadar Tang MD PH,Ur 6.0 Normal 5.0-9.0 [facility] Comment on above: Performed By: #### U A #### [facility] [address] [place] [address] Dr. [place], [place] [phone] Plant Cytologist: Khadar Tang MD Protein Ql (U) Negative Normal NEG [facility] Comment on above: Performed By: #### U A #### [facility] [address] [place] [address] Dr. [place], [place] [id number] Plant Cytologist: Khadar Tang MD Spec. [place],Ur 1.020 Normal 1.010-1.02 0 [facility] Comment on above: Performed By: #### U A #### [facility] [address] [place], [place] [id number] Plant Cytologist: Khadar Tang MD Urobilinogen,Ur Normal Normal NORM [facility] Comment on above: Performed By: #### U A #### [facility] [address] [place] [address] Plant Cytologist: Khadar Tang MD XR ANKLE RIGHT (MIN [...] Derrick Squires MD 06/23/22 Final result Normal [facility] 1. Nonspecific diffu se subcutaneous edema. 2. Periostitis at the lateral aspect of the fibula distally. There was osteomyelitis in this region previously. This could reflect chronic osteomyelitis. Elsewhere, there is no subcutaneous air or evidence of osteomyelitis. [facility] RIS CONSOLIDATED EXAMINATION: THREE XRAY [...] lesion is noted. Calcaneal spurring appears unchanged. [facility] Derrick Herrera MD - 06/23/2022 [...] no subcutaneous air or evidence of osteomyelitis. [facility] Work Phone: Radiology Study observation (narrative) [facility] Phone: XR ANKLE RIGHT (MIN 3 VIEWS) Ordered By: Derrick Squires on 06-23-2022 [facility] Phone: Basic Metabolic Panelon 05-28 Anion gap [Moles/Vol] 9 mmol/L 9 - 17 mmol/L [facility] Calcium [Mass/Vol] 9.5 mg/dL 8.6 - 10. 4 mg/dL [facility] Chloride [Moles/Vol] 112 mmol/L High 98 - 10 7 mmol/L [facility] CO2 [Moles/Vol] 17 mmol/L Low 20 - 31 mmol/L [facility] Creatinine [Mass/Vol] 2 mg/dL High 0.70 - 1.20 mg/dL [facility] GFR/1.73 sq M.predicted MDRD (S/P/Bld) [Vol rate/Area] 38 mL/min/{1.73_m2} Low - PINF [facility] Comment on above: These results are not [...] 137 mg/dL High 70 - 99 mg/dL [facility] Interpretation and review of laboratory results Abnormal [facility] Potassium [Moles/Vol] 6.1 mmol/L Critically high 3.7 - 5.3 mmol/L [facility] Sodium [Moles/Vol] 138 mmol/L 135 - 144 mmol/L [facility] Urea nitrogen [Mass/Vol] 45 mg/dL High 8 - 23 mg/dL [facility] Urea nitrogen/Creatinine (Bld) [Mass ratio] 23 High 9 - 20 [facility] Basic Metabolic Profon 06-22 Potassium [Moles/Vol] 6.1 mmol/L Critically high 3.7-5.3 [facility] Comment on above: Performed By: #### T ROPI #### [facility] [address] [place] [address] Plant Cytologist: Khadar Tang MD Anion gap [Moles/Vol] 9 mmol/L Normal 9-17 [facility] Comment on above: Performed By: #### T ROPI #### [facility] [address] [place] [address] Plant Cytologist: Khadar Tang MD BUN/CRE Ratio 23 High 9-20 [facility] Comment on above: Performed By: #### T ROPI #### [facility] [address] [place] [address] Plant Cytologist: Khadar Tang MD Calcium [Mass/Vol] 9.5 mg/dL Normal 8.6-10.4 [facility] Comment on above: Performed By: #### T ROPI #### [facility] [address] [place] [address] Plant Cytologist: Khadar Tang MD Chloride [Moles/Vol] 112 mmol/L High 98-107 [facility] Comment on above: Performed By: #### T ROPI #### [facility] [address] [place] [id number] Plant Cytologist: Khadar Tang MD CO2 [Moles/Vol] 17 mmol/L Low 20-31 [facility] Comment on above: Performed By: #### T ROPI #### [facility] [address] [place] [address] Plant Cytologist: Khadar Tang MD Creatinine [Mass/Vol] 2.00 mg/dL High 0.70-1.20 [facility] Comment on above: Performed By: #### T ROPI #### [facility] [address] [place] [address] Plant Cytologist: Khadar Tang MD GFR/1.73 sq M.predicted among non-blacks MDRD (S/P/Bld) [Vol rate/Area] 38 mL/min/{1.73_m2} Low >60 [facility] Comment on above: Result Comment: These [...] secretion. Performed By: #### T ROPI #### [facility] [address] [place] [address] Plant Cytologist: Khadar Tang MD Glucose [Mass/Vol] 137 mg/dL High 70-99 [facility] Comment on above: Performed By: #### T ROPI #### [facility] [address] [place] [address] Plant Cytologist: Khadar Tang MD Sodium [Moles/Vol] 138 mmol/L Normal 135-144 [facility] Comment on above: Performed By: #### T ROPI #### [facility] [address] [place] [address] Plant Cytologist: Khadar Tang MD Urea nitrogen [Mass/Vol] 45 mg/dL High 8-23 [facility] Comment on above: Performed By: #### T ROPI #### [facility] [address] [place], [place] [address] Plant Cytologist: Khadar Tang MD CBC with Auto Differentialon 06-22-2022 Absolute Eos # 0.86 High [facility] Absolute Immature Granulocyte 0.09 [facility] Absolute Lymph # 1.97 [facility] Absolute Alfalfa # 0.88 [facility] Basophils (Bld) [#/Vol] 0.05 10*3/uL [facility] Basophils/100 WBC (Bld) 0 % 0 - 2 % [facility] Eosinophils/100 WBC (Bld) 7 % High 1 - 4 % [facility] Hematocrit (Bld) [Volume fraction] 27.6 % Low 40.7 - 50.3 % [facility] Hemoglobin (Bld) [Mass/Vol] 8.3 g/dL Low 13.0 - 17.0 g/dL [facility] Immature granulocytes/100 WBC (Bld) 1 % High 0 [facility] Interpretation and review of laboratory results Abnormal [facility] Lymphocytes/100 WBC (Bld) 15 % Low 24 - 43 % [facility] MCH (RBC) [Entitic mass] 23.3 pg Low 25.2 - 33.5 pg [facility] MCHC (RBC) [Mass/Vol] 30.1 g/dL 28.4 - 34.8 g/dL [facility] MCV (RBC) [Entitic vol] 77.5 fL Low 82.6 - 102.9 fL [facility] Monocytes/100 WBC (Bld) 7 % 3 - 12 % [facility] NRBC Automated 0.0 0.0 per 100 WBC [facility] Platelet distribution width (Bld) [Ratio] 16.2 % High 11.8 - 14.4 % [facility] Platelet mean volume (Bld) [Entitic vol] 8.6 fL 8.1 - 13.5 fL [facility] Platelets (Bld) [#/Vol] 338 10*3/uL [facility] RBC (Bld) [#/Vol] 3.56 10*6/uL Low 4.21 - 5.77 m/uL [facility] Segmented neutrophils/100 WBC (Bld) 70 % High 36 - 65 % [facility] Segs Absolute 8.91 High [facility] WBC (Bld) [#/Vol] 12.8 10*3/uL High [facility] Absolute Eos # 0.84 High [facility] Absolute Immature Granulocyte 0.06 [facility] Absolute Lymph # 1.69 [facility] Absolute Alfalfa # 0.82 [facility] Basophils (Bld) [#/Vol] 0.04 10*3/uL [facility] Basophils/100 WBC (Bld) 0 % 0 - 2 % [facility] Eosinophils/100 WBC (Bld) 7 % High 1 - 4 % [facility] Hematocrit (Bld) [Volume fraction] 27.1 % Low 40.7 - 50.3 % [facility] Hemoglobin (Bld) [Mass/Vol] 8.7 g/dL Low 13.0 - 17.0 g/dL [facility] Immature granulocytes/100 WBC (Bld) 1 % High 0 [facility] Interpretation and review of laboratory results Abnormal [facility] Lymphocytes/100 WBC (Bld) 14 % Low 24 - 43 % [facility] MCH (RBC) [Entitic mass] 25.3 pg 25.2 - 33.5 pg [facility] MCHC (RBC) [Mass/Vol] 32.1 g/dL 28.4 - 34.8 g/dL [facility] MCV (RBC) [Entitic vol] 78.8 fL Low 82.6 - 102.9 fL [facility] Monocytes/100 WBC (Bld) 7 % 3 - 12 % [facility] NRBC Automated 0.0 0.0 per 100 WBC [facility] Platelet distribution width (Bld) [Ratio] 16.4 % High 11.8 - 14.4 % [facility] Platelet mean volume (Bld) [Entitic vol] 9.4 fL 8.1 - 13.5 fL [facility] Platelets (Bld) [#/Vol] 345 10*3/uL [facility] RBC (Bld) [#/Vol] 3.44 10*6/uL Low 4.21 - 5.77 m/uL [facility] Segmented neutrophils/100 WBC (Bld) 71 % High 36 - 65 % [facility] Segs Absolute 9.06 High [facility] WBC (Bld) [#/Vol] 12.5 10*3/uL High [facility] CBC with Diffon 06-22-2022 Abs. Basophil 0.05 k/uL Normal 0.00-0.20 [facility] Comment on above: Performed By: #### C ZANDER MG, CP #### [facility] [address] [place] [address] Dr. [place], [place] [phone] Plant Cytologist: Khadar Tang MD Abs.Imm.Granulocyte 0.09 k/uL Normal 0.00-0.30 [facility] Comment on above: Performed By: #### C DP, MG, CP #### [facility] [address] [place], [place] [phone] Plant Cytologist: Khadar Tang MD Abs.Neutrophil (Seg) 8.91 k/uL High 1.50-8.10 [facility] Comment on above: Performed By: #### C DP MG, CP #### [facility] [address] [place], [place] [phone] Plant Cytologist: Khadar Tang MD Basophils/100 WBC (Bld) 0 % Normal 0-2 [facility] Comment on above: Performed By: #### C DP, MG, CP #### [address] [place], [place] 8805583 Plant Cytologist: Khadar Tang MD Eosinophils (Bld) [#/Vol] 0.86 10*3/uL High 0.00-0.44 [facility] Comment on above: Performed By: #### C DP, MG, CP #### [address] [place], [place] [id number] Plant Cytologist: Khadar Tang MD Eosinophils/100 WBC (Bld) 7 % High 1-4 [facility] Comment on above: Performed By: #### C DP, MG, CP #### [address] [place] [address]0083 Plant Cytologist: Khadar Tang MD Erythrocyte distribution width (RBC) [Ratio] 16.2 % High 11.8-14.4 [facility] Comment on above: Performed By: #### C DP, MG, CP #### [address] [place], [place] [address] Plant Cytologist: Khadar Tang MD Hematocrit (Bld) [Volume fraction] 27.6 % Low 40.7-50.3 [facility] Comment on above: Performed By: #### C DP, MG, CP #### [address] [place], [place] [phone] Plant Cytologist: Khadar Tang MD Hemoglobin (Bld) [Mass/Vol] 8.3 g/dL Low 13.0-17.0 [facility] Comment on above: Performed By: #### C DP, MG, CP #### [address] [place] [address] Plant Cytologist: Khadar Tang MD Immature granulocytes/100 WBC (Bld) 1 % High 0 [facility] Comment on above: Performed By: #### C DP, MG, CP #### [facility] [address] [place] [address] Dr. [place], [place] [phone] Plant Cytologist: Khadar Tang MD Lymphocytes (Bld) [#/Vol] 1.97 10*3/uL Normal 1.10-3.70 [facility] Comment on above: Performed By: #### C DP, MG, CP #### [address] [place], [facility]83 Plant Cytologist: Khadar Tang MD Lymphocytes/100 WBC (Bld) 15 % Low 24-43 [facility] Comment on above: Performed By: #### C DP, MG, CP #### [address] [place] [address]030083 Plant Cytologist: Khadar Tang MD MCH (RBC) [Entitic mass] 23.3 pg Low 25.2-33.5 [facility] Comment on above: Performed By: #### C DP, MG, CP #### [address] [place] 7030083 Plant Cytologist: Khadar Tang MD MCHC (RBC) [Mass/Vol] 30.1 g/dL Normal 28.4-34.8 [facility] Comment on above: Performed By: #### C DP, MG, CP #### [address] [place], [facility]83 Plant Cytologist: Khadar Tang MD MCV (RBC) [Entitic vol] 77.5 fL Low 82.6-102.9 [facility] Comment on above: Performed By: #### C DP, MG, CP #### [address] [place] [address] Plant Cytologist: Khadar Tang MD Monocytes (Bld) [#/Vol] 0.88 10*3/uL Normal 0.10-1.20 [facility] Comment on above: Performed By: #### C DP, MG, CP #### [facility] [address] [place], [place] [address] Plant Cytologist: Khadar Tang MD Monocytes/100 WBC (Bld) 7 % Normal 3-12 [facility] Comment on above: Performed By: #### C DP, MG, CP #### [facility] [address] [place], [facility]83 Plant Cytologist: Khadar Tang MD Neutrophil (Seg) 70 % High 36-65 [facility] Comment on above: Performed By: #### C DP, MG, CP #### [address] [place], [facility]83 Plant Cytologist: Khadar Tang MD NRBC Automated 0.0 per 100 WBC Normal 0.0 [facility] Comment on above: Performed By: #### C DP, MG, CP #### [address] [place], [facility]83 Plant Cytologist: Khadar Tang MD Platelet mean volume (Bld) [Entitic vol] 8.6 fL Normal 8.1-13.5 [facility] Comment on above: Performed By: #### C DP, MG, CP #### [address] [place], [place] [address] Plant Cytologist: Khadar Tang MD Platelets (Bld) [#/Vol] 338 10*3/uL Normal 138-453 [facility] Comment on above: Performed By: #### C DP, MG, CP #### [address] [place], [place] [phone] Plant Cytologist: Khadar Tang MD RBC (Bld) [#/Vol] 3.56 10*6/uL Low 4.21-5.77 [facility] Comment on above: Performed By: #### C DP, MG, CP #### [facility] [address] [place], [place] [address] Plant Cytologist: Khadar Tang MD WBC (Bld) [#/Vol] 12.8 10*3/uL High 3.5-11.3 [facility] Comment on above: Performed By: #### C DP, MG, CP #### [facility] [address] [place], [place] [address] Plant Cytologist: Khadar Tang MD Abs. Basophil 0.04 k/uL Normal 0.00-0.20 [facility] Comment on above: Performed By: #### T ROPI #### [address] [place], [place] [address] Plant Cytologist: Khadar Tang MD Abs.Imm.Granulocyte 0.06 k/uL Normal 0.00-0.30 [facility] Comment on above: Performed By: #### T ROPI #### [address] [place], [place] [address] Plant Cytologist: Khadar Tang MD Abs.Neutrophil (Seg) 9.06 k/uL High 1.50-8.10 [facility] Comment on above: Performed By: #### T ROPI #### [address] [place] [address] Plant Cytologist: Khadar Tang MD Basophils/100 WBC (Bld) 0 % Normal 0-2 [facility] Comment on above: Performed By: #### T ROPI #### [address] [place], [place] [address] Plant Cytologist: Khadar Tang MD Eosinophils (Bld) [#/Vol] 0.84 10*3/uL High 0.00-0.44 [facility] Comment on above: Performed By: #### T ROPI #### [address] [place], [place] [address] Plant Cytologist: Khadar Tang MD Eosinophils/100 WBC (Bld) 7 % High 1-4 [facility] Comment on above: Performed By: #### T ROPI #### [facility] [address] [place] [address] [place] [address] Plant Cytologist: Khadar Tang MD Erythrocyte distribution width (RBC) [Ratio] 16.4 % High 11.8-14.4 [facility] Comment on above: Performed By: #### T ROPI #### [facility] [address] [place] [address] [place] [address] Plant Cytologist: Khadar Tang MD Hematocrit (Bld) [Volume fraction] 27.1 % Low 40.7-50.3 [facility] Comment on above: Performed By: #### T ROPI #### [address] [place] [address] Plant Cytologist: Khadar Tang MD Hemoglobin (Bld) [Mass/Vol] 8.7 g/dL Low 13.0-17.0 [facility] Comment on above: Performed By: #### T ROPI #### [address] [place], [place] [id number] Plant Cytologist: Khadar Tang MD Immature granulocytes/100 WBC (Bld) 1 % High 0 [facility] Comment on above: Performed By: #### T ROPI #### [facility] [address] [place] [address] Dr. [place], [facility]83 Plant Cytologist: Khadar Tang MD Lymphocytes (Bld) [#/Vol] 1.69 10*3/uL Normal 1.10-3.70 [facility] Comment on above: Performed By: #### T ROPI #### [address] [place] [address] Plant Cytologist: Khadar Tang MD Lymphocytes/100 WBC (Bld) 14 % Low 24-43 [facility] Comment on above: Performed By: #### T ROPI #### [address] [place], [place] [id number] Plant Cytologist: Khadar Tang MD MCH (RBC) [Entitic mass] 25.3 pg Normal 25.2-33.5 [facility] Comment on above: Performed By: #### T ROPI #### [address] [place], [facility]83 Plant Cytologist: Khadar Tang MD MCHC (RBC) [Mass/Vol] 32.1 g/dL Normal 28.4-34.8 [facility] Comment on above: Performed By: #### T ROPI #### [address] [place] [address]83 Plant Cytologist: Khadar Tang MD MCV (RBC) [Entitic vol] 78.8 fL Low 82.6-102.9 [facility] Comment on above: Performed By: #### T ROPI #### [address] [place], [place] [id number] Plant Cytologist: Khadar Tang MD Monocytes (Bld) [#/Vol] 0.82 10*3/uL Normal 0.10-1.20 [facility] Comment on above: Performed By: #### T ROPI #### [facility] [address] [place] [address] Dr. [place], [facility]83 Plant Cytologist: Khadar Tang MD Monocytes/100 WBC (Bld) 7 % Normal 3-12 [facility] Comment on above: Performed By: #### T ROPI #### [facility] [address] [place] [address]83 Plant Cytologist: Khadar Tang MD Neutrophil (Seg) 71 % High 36-65 [facility] Comment on above: Performed By: #### T ROPI #### [facility] [address] [place] [address]83 Plant Cytologist: Khadar Tang MD NRBC Automated 0.0 per 100 WBC Normal 0.0 [facility] Comment on above: Performed By: #### T ROPI #### [facility] [address] [place], [place] [id number] Plant Cytologist: Khadar Tang MD Platelet mean volume (Bld) [Entitic vol] 9.4 fL Normal 8.1-13.5 [facility] Comment on above: Performed By: #### T ROPI #### [facility] [address] [place], [place] 1207783 Plant Cytologist: Khadar Tang MD Platelets (Bld) [#/Vol] 345 10*3/uL Normal 138-453 [facility] Comment on above: Performed By: #### T ROPI #### [facility] [address] [place] [address]83 Plant Cytologist: Khadar Tang MD RBC (Bld) [#/Vol] 3.44 10*6/uL Low 4.21-5.77 [facility] Comment on above: Performed By: #### T ROPI #### [facility] [address] [place], [place] [id number] Plant Cytologist: Khadar Tang MD WBC (Bld) [#/Vol] 12.5 10*3/uL High 3.5-11.3 [facility] Comment on above: Performed By: #### T ROPI #### [facility] [address] [place], [place] [id number] Plant Cytologist: Khadar Tang [facility] Albumin [Mass/Vol] 3.2 g/dL Low 3.5 - 5.2 g/dL [facility] Albumin/Globulin [Mass ratio] 0.7 {ratio} Low 1.0 - 2.5 [facility] ALP [Catalytic activity/Vol] 101 U/L 40 - 129 U/L [facility] ALT [Catalytic activity/Vol] 8 U/L 5 - 41 U/L [facility] Anion gap [Moles/Vol] 11 mmol/L 9 - 17 mmol/L [facility] AST [Catalytic activity/Vol] 13 U/L NINF - 40 U/L [facility] Bilirubin [Mass/Vol] mg/dL Low 0.3 - 1 .2 mg/dL [facility] Calcium [Mass/Vol] 9.1 mg/dL 8.6 - 10. 4 mg/dL [facility] Chloride [Moles/Vol] 110 mmol/L High 98 - 10 7 mmol/L [facility] CO2 [Moles/Vol] 16 mmol/L Low 20 - 31 mmol/L [facility] Creatinine [Mass/Vol] 1.93 mg/dL High 0.70 - 1.20 mg/dL [facility] GFR/1.73 sq M.predicted MDRD (S/P/Bld) [Vol rate/Area] 39 mL/min/{1.73_m2} Low - PINF [facility] Comment on above: These results [...] 148 mg/dL High 70 - 99 mg/dL [facility] Interpretation and review of laboratory results Abnormal [facility] Potassium [Moles/Vol] 6.3 mmol/L Critically high 3.7 - 5.3 mmol/L [facility] Protein [Mass/Vol] 8.1 g/dL 6.4 - 8.3 g/dL [facility] Sodium [Moles/Vol] 137 mmol/L 135 - 144 mmol/L [facility] Urea nitrogen [Mass/Vol] 49 mg/dL High 8 - 23 mg/dL [facility] Urea nitrogen/Creatinine (Bld) [Mass ratio] 25 High 9 - 20 [facility] Comp Metabolic Profon 2022 Bilirubin [Mass/Vol] mg/dL Low 0.3-1.2 [facility] Comment on above: Performed By: #### C DP, MG, CP #### [facility] [address] [place], [place] [id number] Plant Cytologist: Khadar Tang MD Potassium [Moles/Vol] 6.3 mmol/L Critically high 3.7-5.3 [facility] Comment on above: Performed By: #### C DP, MG, CP #### [facility] [address] [place], [place] [id number] Plant Cytologist: Khadar Tang MD Albumin [Mass/Vol] 3.2 g/dL Low 3.5-5.2 [facility] Comment on above: Performed By: #### C DP, MG, CP #### [facility] [address] [place] [address] Plant Cytologist: Khadar Tang MD Albumin/Glob Ratio 0.7 Low 1.0-2.5 [facility] Comment on above: Performed By: #### C DP, MG, CP #### [facility] [address] [place] [address] Plant Cytologist: Khadar Tang MD Alkaline Phos 101 U/L Normal 40-129 [facility] Comment on above: Performed By: #### C DP, MG, CP #### [facility] [address] [place] [address] Plant Cytologist: Khadar Tang MD ALT [Catalytic activity/Vol] 8 U/L Normal 5-41 [facility] Comment on above: Performed By: #### C DP, MG, CP #### [facility] [address] [place], [place] [id number] Plant Cytologist: Khadar Tang MD Anion gap [Moles/Vol] 11 mmol/L Normal 9-17 [facility] Comment on above: Performed By: #### C DP, MG, CP #### [facility] [address] [place], [place] 3647683 Plant Cytologist: Khadar Tang MD AST [Catalytic activity/Vol] 13 U/L Normal <40 [facility] Comment on above: Performed By: #### C DP, MG, CP #### [facility] [address] [place], [place] 9876983 Plant Cytologist: Khadar Tang MD BUN/CRE Ratio 25 High 9-20 [facility] [facility] Comment on above: Performed By: #### C DP, MG, CP #### [address] [place], [place] [id number] Plant Cytologist: Khadar Tang MD Calcium [Mass/Vol] 9.1 mg/dL Normal 8.6-10.4 [facility] Comment on above: Performed By: #### C DP, MG, CP #### [address] [place], [place] [id number] Plant Cytologist: Khadar Tang MD Chloride [Moles/Vol] 110 mmol/L High 98-107 [facility] Comment on above: Performed By: #### C DP, MG, CP #### [facility] [address] [place] [address] [address]. [place], [place] [id number] Plant Cytologist: Khadar Tang MD CO2 [Moles/Vol] 16 mmol/L Low 20-31 [facility] Comment on above: Performed By: #### C DP, MG, CP #### [facility] [address] [place] [address] [address] [place], [place] [id number] Plant Cytologist: Khadar Tang MD Creatinine [Mass/Vol] 1.93 mg/dL High 0.70-1.20 [facility] Comment on above: Performed By: #### C DP, MG, CP #### [facility] [address] [place] [address] [place] [address] Plant Cytologist: Khadar Tang MD GFR/1.73 sq M.predicted among non-blacks MDRD (S/P/Bld) [Vol rate/Area] 39 mL/min/{1.73_m2} Low >60 [facility] Comment on above: Result Comment: These [...] By: #### C DP, MG, CP #### [address] [place] [address] Plant Cytologist: Khadar Tang MD Glucose [Mass/Vol] 148 mg/dL High 70-99 [facility] Comment on above: Performed By: #### C DP, MG, CP #### [address] [place] [address] Plant Cytologist: Khadar Tang MD Protein [Mass/Vol] 8.1 g/dL Normal 6.4-8.3 [facility] Comment on above: Performed By: #### C DP, MG, CP #### [address] [place] [address] Plant Cytologist: Khadar Tang MD Sodium [Moles/Vol] 137 mmol/L Normal 135-144 [facility] Comment on above: Performed By: #### C DP, MG, CP #### [address] [place] [address] Plant Cytologist: Khadar Tang MD Urea nitrogen [Mass/Vol] 49 mg/dL High 8-23 [facility] Comment on above: Performed By: #### C DP, MG, CP #### [facility] [address] [place] [address] [place] [address] Plant Cytologist: Khadar Tang MD EKG 12 LeadOrdered By: Michelle de la rosa on 06-22-2022 Atrial Rate 58 BPM [facility] [employer] Work Phone: P Vilas 66 degrees [employer] Work Phone: P-R Interval 148 ms [facility] [employer] Work Phone: Q-T Interval 394 ms [facility] Work Phone: QRS Duration 94 ms [facility] [employer] Work Phone: QTc Calculation (Bazett) 386 ms [facility] [employer] Work Phone: R Vilas 64 degrees [facility] [employer] [employer] Work Phone: T Vilas -8 degrees [facility] [employer] Work Phone: Ventricular Rate 58 BPM [facility] [employer] Work Phone: [facility] [employer] Work Phone: EKG 12 Leadon 06-22-2022 Sinus bradycardia Inferior infarct , age undetermined Possible Anterolateral infarct , age undetermined Abnormal ECG When compared with ECG of 24-APR-2015 18:25, Vent. rate has decreased BY 39 BPM Borderline criteria for Anterolateral infarct are now Present T wave inversion now evident in Inferior leads QT has shortened Confirmed by Michelle Noe MD ([id number]) on 06/22/2022 10:09:31 PM [facility] Michelle Noe MD - 06/22/2022 Sinus bradycardia Inferior infarct , age undetermined Possible Anterolateral infarct , age undetermined Abnormal ECG When compared with ECG of 24-APR-2015 18:25, Vent. rate has decreased BY 39 BPM Borderline criteria for Anterolateral infarct are now Present T wave inversion now evident in Inferior leads QT has shortened Confirmed by Michelle Noe MD ([id number]) on 06/22/2022 10:09:31 PM [facility] [employer] Work Phone: Magnesiumon 06-22-2022 Magnesium [Mass/Vol] 2.0 mg/dL Normal 1.6-2.6 [facility] Comment on above: Performed By: #### C ZANDER MG, CP #### [facility] [address] [place] [address] Plant Cytologist: Khadar Tang MD Magnesium [Mass/Vol] 2.0 mg/dL 1.6 - 2 .6 mg/dL [facility] CT PELVIS WO CONon 2 CT PELVIS [...] by: JESUSITA PAPPAS Date: 2022-03-14 09:50 Normal [facility] GLYCOHEMOGLOBIN A1Con 2021 ADA RECOMMENDATION ADA THERAPEUTIC TARG ET 6.0 - 7.0 ACTION SUGGESTED > 7.0 Normal [facility] Comment on above: Performed By: #### A 1C #### [facility] [address] [address] [address] Juan Smith Glucose [Mass/Vol] 180 mg/dL Normal [facility] Comment on above: Performed By: #### A 1C #### [facility] [address] [address] [address] Juan Smith HbA1c (Bld) [Mass fraction] 7.9 % Critically high <=6.0 [facility] Comment on above: Performed By: #### A 1C #### [facility] [address] [address] [address] Juan Smith Cult,Aerobe/Anaerobeon 04-15 Neutrophils Specimen Description .TISSUE RIGHT MEDIAL HEEL POST IRRIGATIONSpecial Requests NOT REPORTEDDirect Exam NO NEUTROPHILS SEEN NO BACTERIA SEEN Culture METHICILLIN RESISTANT STAPHYLOCOCCUS AUREUS SCANT GROWTH For susceptibility, refer to previous culture. STREPTOCOCCI, BETA HEMOLYTIC GROUP C SCANT GROWTH DIPHTHEROIDS SCANT GROWTH NO ANAEROBIC ORGANISMS ISOLATED AT 5 DAYS Report Status FINAL 04/15/2017 Normal [facility] Comment on above: Performed By: #### A ANC ####[id number] Neutrophils Specimen Description .TISSUE RIGHT ANKLE PRE IRRIGATIONSpecial Requests NOT REPORTEDDirect Exam NO NEUTROPHILS SEEN RARE GRAM POSITIVE COCCI IN PAIRS Culture METHICILLIN RESISTANT STAPHYLOCOCCUS AUREUS LIGHT GROWTH For susceptibility, refer to previous culture. STREPTOCOCCI, BETA HEMOLYTIC GROUP C SCANT GROWTH NO ANAEROBIC ORGANISMS ISOLATED AT 5 DAYS Report Status FINAL 04/15/2017 Normal [facility] Comment on above: Performed By: #### A ANC ####[address] [address] Neutrophils Specimen Description .TISSUE RIGHT MEDIAL HEEL PRE IRRIGATIONSpecial Requests NOT REPORTEDDirect Exam NO NEUTROPHILS SEEN NO BACTERIA SEEN Culture STREPTOCOCCI, BETA HEMOLYTIC GROUP C LIGHT GROWTH METHICILLIN RESISTANT STAPHYLOCOCCUS AUREUS SCANT GROWTH For susceptibility, refer to previous culture. DIPHTHEROIDS LIGHT GROWTH NO ANAEROBIC ORGANISMS ISOLATED AT 5 DAYS Report Status FINAL 04/15/2017 Normal [facility] Comment on above: Performed By: #### A ANC ####[address] [address] Basic Metabolic Profon 04-13 (cont.) Normal [facility] Comment on above: Result Comment: Aver age GFR for 50-59 years old: 93 mL/min/1.73sq mChronic Kidney Disease: <60 mL/min/1.73sq mKidney failure: <15 mL/min/1.73sq meGFR calculated using average adult body mass. Additional eGFR calculator available at:[email or web address] [facility] [address] [place] [address] Performed By: #### C DP, CMPX, CRP, SED, GLYHGB ####[address] [address] Anion gap 11 mmol/L Normal 9-17 [facility] Comment on above: Performed By: #### C DP, CMPX, CRP, SED, GLYHGB ####[facility] [address] [place] [address] Calcium 8.7 mg/dL Normal 8.6-10.4 [facility] Comment on above: Performed By: #### C DP, CMPX, CRP, SED, GLYHGB ####[address] [address] Chloride 106 mmol/L Normal 98-107 [facility] Comment on above: Performed By: #### C DP, CMPX, CRP, SED, GLYHGB ####[facility] [place] [address] CO2 22 mmol/L Normal 20-31 [facility] Comment on above: Performed By: #### C DP, CMPX, CRP, SED, GLYHGB ####[address] [place] [address] Creatinine 1.04 mg/dL Normal 0.70-1.20 [facility] Comment on above: Performed By: #### C DP, CMPX, CRP, SED, GLYHGB ####[address] [place] [address] eGFR (non-black) mL/min/{1.73_m2} Normal >60 [facility] Comment on above: Performed By: #### C DP, CMPX, CRP, SED, GLYHGB ####[address] [place] [address] Glucose mass conc 174 mg/dL High 70-99 [facility] Comment on above: Performed By: #### C DP, CMPX, CRP, SED, GLYHGB ####[facility] [place] [address] Potassium molar conc 4.1 mmol/L Normal 3.7-5.3 [facility] Comment on above: Performed By: #### C DP, CMPX, CRP, SED, GLYHGB ####[facility] [place] [address] Sodium 139 mmol/L Normal 135-144 [facility] Comment on above: Performed By: #### C DP, CMPX, CRP, SED, GLYHGB ####[facility] [place] [address] Urea nitrogen 16 mg/dL Normal 6-20 [facility] Comment on above: Performed By: #### C DP, CMPX, CRP, SED, GLYHGB ####[address] [address] BUN/CRE Ratio NOT REPORTED Normal 12-16 [facility] Comment on above: Performed By: #### C DP, CMPX, CRP, SED, GLYHGB ####[address] [address] Staging: NOT REPORTED Normal [facility] Comment on above: Performed By: #### C DP, CMPX, CRP, SED, GLYHGB ####[address] [address] CBC with Diffon 04-13-2017 Abs. Basophil <0.03 Normal 0.00-0.20 [facility] Comment on above: Performed By: #### C DP, CMPX, CRP, SED, GLYHGB ####[address] [address] Abs.Neutrophil (Seg) 4.97 k/uL Normal 1.50-8.10 [facility] Comment on above: Performed By: #### C DP, CMPX, CRP, SED, GLYHGB ####[address] [address] Basophils/100 WBC Auto (Bld) 0 % Normal 0-2 [facility] Comment on above: Performed By: #### C DP, CMPX, CRP, SED, GLYHGB ####[address] [address] Eosinophils 0.24 10*3/uL Normal 0.00-0.44 [facility] Comment on above: Performed By: #### C DP, CMPX, CRP, SED, GLYHGB ####[address] [address] Eosinophils/100 leukocytes 3 % Normal 1-4 [facility] Comment on above: Performed By: #### C DP, CMPX, CRP, SED, GLYHGB ####[address] [address] Erythrocyte distribution width Auto Ratio (RBC) 14.8 % High 11.8-14.4 [facility] Comment on above: Performed By: #### C DP, CMPX, CRP, SED, GLYHGB ####[address] [address] Erythrocyte morphology ANISOCYTOSIS PRESENT Normal [facility] Comment on above: Result Comment: [address] [place] [address] Performed By: #### C DP, CMPX, CRP, SED, GLYHGB ####[address] [address] Erythrocytes (RBC) 0.0 per 100 WBC Normal 0.0 [facility] Comment on above: Performed By: #### C DP, CMPX, CRP, SED, GLYHGB ####[address] [address] Erythrocytes (RBC) 3.42 10*6/uL Low 4.21-5.77 [facility] Comment on above: Performed By: #### C DP, CMPX, CRP, SED, GLYHGB ####[address] [address] Granulocytes/100 WBC (Bld) 0.19 k/uL Normal 0.00-0.30 [facility] Comment on above: Performed By: #### C DP, CMPX, CRP, SED, GLYHGB ####[address] [address] Hematocrit (HCT) 29.4 % Low 40.7-50.3 [facility] Comment on above: Performed By: #### C DP, CMPX, CRP, SED, GLYHGB ####[address] [address] Hemoglobin mass conc (Bld) 8.8 g/dL Low 13.0-17.0 [facility] Comment on above: Performed By: #### C DP, CMPX, CRP, SED, GLYHGB ####[address] [address] Immature granulocytes #/vol (Bld) 2 % High 0 [facility] Comment on above: Performed By: #### C DP, CMPX, CRP, SED, GLYHGB ####[address] [address] Lymphocytes 2.00 10*3/uL Normal 1.10-3.70 [facility] Comment on above: Performed By: #### C DP, CMPX, CRP, SED, GLYHGB ####[address] [address] Lymphocytes/100 leukocytes 25 % Normal 24-43 [facility] Comment on above: Performed By: #### C DP, CMPX, CRP, SED, GLYHGB ####[address] [address] MCH 25.7 pg Normal 25.2-33.5 [facility] Comment on above: Performed By: #### C DP, CMPX, CRP, SED, GLYHGB ####[address] [address] MCHC mass conc (RBC) 29.9 g/dL Normal 28.4-34.8 [facility] Comment on above: Performed By: #### C DP, CMPX, CRP, SED, GLYHGB ####[address] [address] MCV 86.0 fL Normal 82.6-102.9 [facility] Comment on above: Performed By: #### C DP, CMPX, CRP, SED, GLYHGB ####[address] [address] Monocytes 0.53 10*3/uL Normal 0.10-1.20 [facility] Comment on above: Performed By: #### C DP, CMPX, CRP, SED, GLYHGB ####[address] [address] Monocytes/100 leukocytes 7 % Normal 3-12 [facility] Comment on above: Performed By: #### C DP, CMPX, CRP, SED, GLYHGB ####[address] [address] Neutrophil (Seg) 63 % Normal 36-65 [facility] Comment on above: Performed By: #### C DP, CMPX, CRP, SED, GLYHGB ####[address] [address] Platelet mean volume (PMV) 9.9 fL Normal 8.1-13.5 [facility] Comment on above: Performed By: #### C DP, CMPX, CRP, SED, GLYHGB ####[address] [address] Platelets 257 10*3/uL Normal 138-453 [facility] Comment on above: Performed By: #### C DP, CMPX, CRP, SED, GLYHGB ####[address] [address] WBC (Leukocytes) 8.0 10*3/uL Normal 3.5-11.3 [facility] Comment on above: Performed By: #### C DP, CMPX, CRP, SED, GLYHGB ####[address] [id number] Auto Diff Performed NOT REPORTED Normal [facility] Comment on above: Performed By: #### C DP, CMPX, CRP, SED, GLYHGB ####[id number] [place] [address] Platelets NOT REPORTED Normal [facility] Comment on above: Performed By: #### C DP, CMPX, CRP, SED, GLYHGB ####[facility] [id number] [place] [id number] WBC Morphology NOT REPORTED Normal [facility] Comment on above: Performed By: #### C DP, CMPX, CRP, SED, GLYHGB ####[address] [id number] Discharge Summaryon 04-13-19 18 HIM IP Note OR Meal Grinder Tender Normal [facility] Plan of Careon 04-13-2017 HIM IP Note OR Meal Grinder Tender Normal [facility] HIM IP Note OR Meal Grinder Tender Normal [facility] Progress Noteon 04-13-2017 HIM IP Note OR Meal Grinder Tender Normal [facility] HIM IP Note OR Meal Grinder Tender Normal [facility] HIM IP Note OR Meal Grinder Tender Normal [facility] HIM IP Note OR Meal Grinder Tender Normal [facility] HIM IP Note OR Meal Grinder Tender Normal [facility] HIM IP Note OR Meal Grinder Tender Normal [facility] Basic Metabolic Profon 04-12 (cont.) Normal [facility] Comment on above: Result Comment: Aver age GFR for 50-59 years old: 93 mL/min/1.73sq mChronic Kidney Disease: <60 mL/min/1.73sq mKidney failure: <15 mL/min/1.73sq meGFR calculated using average adult body mass. Additional eGFR calculator available at:[email or web address] [place] [address] Performed By: #### C DP, CMPX, CRP, SED, GLYHGB ####[address] [place] [address] Anion gap 8 mmol/L Low 9-17 [facility] Comment on above: Performed By: #### C DP, CMPX, CRP, SED, GLYHGB ####[address] [address] Calcium 8.8 mg/dL Normal 8.6-10.4 [facility] Comment on above: Performed By: #### C DP, CMPX, CRP, SED, GLYHGB ####[address] [address] Chloride 107 mmol/L Normal 98-107 [facility] Comment on above: Performed By: #### C DP, CMPX, CRP, SED, GLYHGB ####[address] [address] CO2 23 mmol/L Normal 20-31 [facility] Comment on above: Performed By: #### C DP, CMPX, CRP, SED, GLYHGB ####[address] [address] Creatinine 1.01 mg/dL Normal 0.70-1.20 [facility] Comment on above: Performed By: #### C DP, CMPX, CRP, SED, GLYHGB ####[address] [place] [address] eGFR (non-black) mL/min/{1.73_m2} Normal >60 [facility] Comment on above: Performed By: #### C DP, CMPX, CRP, SED, GLYHGB ####[address] [address] Glucose mass conc 172 mg/dL High 70-99 [facility] Comment on above: Performed By: #### C DP, CMPX, CRP, SED, GLYHGB ####[address] [address] Potassium molar conc 3.9 mmol/L Normal 3.7-5.3 [facility] Comment on above: Performed By: #### C DP, CMPX, CRP, SED, GLYHGB ####[address] [address] Sodium 138 mmol/L Normal 135-144 [facility] Comment on above: Performed By: #### C DP, CMPX, CRP, SED, GLYHGB ####[address] [address] Urea nitrogen 15 mg/dL Normal 6-20 [facility] Comment on above: Performed By: #### C DP, CMPX, CRP, SED, GLYHGB ####[address] [address] BUN/CRE Ratio NOT REPORTED Normal -20 [facility] Comment on above: Performed By: #### C DP, CMPX, CRP, SED, GLYHGB ####[address] [address] Staging: NOT REPORTED Normal [facility] Comment on above: Performed By: #### C DP, CMPX, CRP, SED, GLYHGB ####[address] [address] CBC with Diffon 04-12-2017 Abs. Basophil <0.03 Normal 0.00-0.20 [facility] Comment on above: Performed By: #### C DP, CMPX, CRP, SED, GLYHGB ####[address] [address] Abs.Neutrophil (Seg) 4.31 k/uL Normal 1.50-8.10 [facility] Comment on above: Performed By: #### C DP, CMPX, CRP, SED, GLYHGB ####[address] [address] Basophils/100 WBC Auto (Bld) 0 % Normal 0-2 [facility] Comment on above: Performed By: #### C DP, CMPX, CRP, SED, GLYHGB ####[address] [address] Eosinophils 0.21 10*3/uL Normal 0.00-0.44 [facility] Comment on above: Performed By: #### C DP, CMPX, CRP, SED, GLYHGB ####[address] [address] Eosinophils/100 leukocytes 3 % Normal 1-4 [facility] Comment on above: Performed By: #### C DP, CMPX, CRP, SED, GLYHGB ####[address] [address] Erythrocyte distribution width Auto Ratio (RBC) 14.7 % High 11.8-14.4 [facility] Comment on above: Performed By: #### C DP, CMPX, CRP, SED, GLYHGB ####[address] [address] Erythrocyte morphology ANISOCYTOSIS PRESENT Normal [facility] Comment on above: Result Comment: [address] [place] [address] Performed By: #### C DP, CMPX, CRP, SED, GLYHGB ####[address] [address] Erythrocytes (RBC) 3.45 10*6/uL Low 4.21-5.77 [facility] Comment on above: Performed By: #### C DP, CMPX, CRP, SED, GLYHGB ####[address] [address] Granulocytes/100 WBC (Bld) 0.22 k/uL Normal 0.00-0.30 [facility] Comment on above: Performed By: #### C DP, CMPX, CRP, SED, GLYHGB ####[address] [address] Hematocrit (HCT) 28.9 % Low 40.7-50.3 [facility] Comment on above: Performed By: #### C DP, CMPX, CRP, SED, GLYHGB ####[address] [address] Hemoglobin mass conc (Bld) 8.9 g/dL Low 13.0-17.0 [facility] Comment on above: Performed By: #### C DP, CMPX, CRP, SED, GLYHGB ####[address] [address] Immature granulocytes #/vol (Bld) 3 % High 0 [facility] Comment on above: Performed By: #### C DP, CMPX, CRP, SED, GLYHGB ####[address] [address] Lymphocytes 1.83 10*3/uL Normal 1.10-3.70 [facility] Comment on above: Performed By: #### C DP, CMPX, CRP, SED, GLYHGB ####[address] [address] Lymphocytes/100 leukocytes 26 % Normal 24-43 [facility] Comment on above: Performed By: #### C DP, CMPX, CRP, SED, GLYHGB ####[address] [address] MCH 25.8 pg Normal 25.2-33.5 [facility] Comment on above: Performed By: #### C DP, CMPX, CRP, SED, GLYHGB ####[address] [address] MCHC mass conc (RBC) 30.8 g/dL Normal 28.4-34.8 [facility] Comment on above: Performed By: #### C DP, CMPX, CRP, SED, GLYHGB ####[address] [address] MCV 83.8 fL Normal 82.6-102.9 [facility] Comment on above: Performed By: #### C DP, CMPX, CRP, SED, GLYHGB ####[address] [address] Monocytes 0.58 10*3/uL Normal 0.10-1.20 [facility] Comment on above: Performed By: #### C DP, CMPX, CRP, SED, GLYHGB ####[address] [address] Monocytes/100 leukocytes 8 % Normal 3-12 [facility] Comment on above: Performed By: #### C DP, CMPX, CRP, SED, GLYHGB ####[address] [address] Neutrophil (Seg) 60 % Normal 36-65 [facility] Comment on above: Performed By: #### C DP, CMPX, CRP, SED, GLYHGB ####[address] [address] Platelet mean volume (PMV) 9.3 fL Normal 8.1-13.5 [facility] Comment on above: Performed By: #### C DP, CMPX, CRP, SED, GLYHGB ####[address] [address] Platelets 231 10*3/uL Normal 138-453 [facility] Comment on above: Performed By: #### C DP, CMPX, CRP, SED, GLYHGB ####[address] [address] WBC (Leukocytes) 7.2 10*3/uL Normal 3.5-11.3 [facility] Comment on above: Performed By: #### C DP, CMPX, CRP, SED, GLYHGB ####[facility] [id number] [place] [address] Auto Diff Performed NOT REPORTED Normal [facility] Comment on above: Performed By: #### C DP, CMPX, CRP, SED, GLYHGB ####[facility] [address] [address] Platelets NOT REPORTED Normal [facility] Comment on above: Performed By: #### C DP, CMPX, CRP, SED, GLYHGB ####[facility] [address] [address] WBC Morphology NOT REPORTED Normal [facility] Comment on above: Performed By: #### C DP, CMPX, CRP, SED, GLYHGB ####[address] [address] Cult,Aerobe/Anaerobeon 04-12 Neutrophils Specimen Description .TISSUE RIGHT [...] NOT REPORTEDTrimethoprim/Sulfa <=10 SUSCEPTIBLEVancomycin 1 SUSCEPTIBLE Normal [facility] Comment on above: Performed By: #### A ANC ####[address] [address] Plan of Careon 04-12-2017 HIM IP Note OR Meal Grinder Tender Normal [facility] HIM IP Note OR Meal Grinder Tender Normal [facility] HIM IP Note OR Meal Grinder Tender Normal [facility] HIM IP Note OR Meal Grinder Tender Normal [facility] HIM IP Note OR Meal Grinder Tender Normal [facility] Progress Noteon 04-12-2017 HIM IP Note OR Meal Grinder Tender Normal [facility] HIM IP Note OR Meal Grinder Tender Normal [facility] HIM IP Note OR Meal Grinder Tender Normal [facility] HIM IP Note OR Meal Grinder Tender Normal [facility] HIM IP Note OR Meal Grinder Tender Normal [facility] HIM IP Note OR Meal Grinder Tender Normal [facility] Basic Metabolic Profon 04-11 (cont.) Normal [facility] Comment on above: Result Comment: Aver age GFR for 50-59 years old: 93 mL/min/1.73sq mChronic Kidney Disease: <60 mL/min/1.73sq mKidney failure: <15 mL/min/1.73sq meGFR calculated using average adult body mass. Additional eGFR calculator available at:http://www.[email or web address]/multiple_[email or web address] [facility] [address] [place] [address] Performed By: #### C DP, CMPX, CRP, SED, GLYHGB ####[address] [address] Anion gap 14 mmol/L Normal 9-17 [facility] Comment on above: Performed By: #### C DP, CMPX, CRP, SED, GLYHGB ####[address] [address] Calcium 8.2 mg/dL Low 8.6-10.4 [facility] Comment on above: Performed By: #### C DP, CMPX, CRP, SED, GLYHGB ####[address] [address] Chloride 101 mmol/L Normal 98-107 [facility] Comment on above: Performed By: #### C DP, CMPX, CRP, SED, GLYHGB ####[address] [address] CO2 21 mmol/L Normal 20-31 [facility] Comment on above: Performed By: #### C DP, CMPX, CRP, SED, GLYHGB ####[address] [address] [address] Creatinine 1.16 mg/dL Normal 0.70-1.20 [facility] Comment on above: Performed By: #### C DP, CMPX, CRP, SED, GLYHGB ####[address] [address] eGFR (non-black) mL/min/{1.73_m2} Normal >60 [facility] Comment on above: Performed By: #### C DP, CMPX, CRP, SED, GLYHGB ####[address] [address] Glucose mass conc 153 mg/dL High 70-99 [facility] Comment on above: Performed By: #### C DP, CMPX, CRP, SED, GLYHGB ####[address] [address] Potassium molar conc 4.0 mmol/L Normal 3.7-5.3 [facility] Comment on above: Performed By: #### C DP, CMPX, CRP, SED, GLYHGB ####[facility] [address] [place] [address] Sodium 136 mmol/L Normal 135-144 [facility] Comment on above: Performed By: #### C DP, CMPX, CRP, SED, GLYHGB ####[address] [address] Urea nitrogen 18 mg/dL Normal - [facility] Comment on above: Performed By: #### C DP, CMPX, CRP, SED, GLYHGB ####[address] [address] BUN/CRE Ratio NOT REPORTED Normal - [facility] Comment on above: Performed By: #### C DP, CMPX, CRP, SED, GLYHGB ####[address] [address] Staging: NOT REPORTED Normal [facility] Comment on above: Performed By: #### C DP, CMPX, CRP, SED, GLYHGB ####[address] [address] C-Reactive Proteinon 018 C reactive protein (CRP) 55.5 mg/L High 0.0-5.0 [facility] Comment on above: Result Comment: [address] [address] Performed By: #### C DP, CMPX, CRP, SED, GLYHGB ####[address] [address] CBC with Diffon 04-11-2017 Abs. Basophil <0.03 Normal 0.00-0.20 [facility] Comment on above: Performed By: #### C DP, CMPX, CRP, SED, GLYHGB ####[address] [address] Abs.Neutrophil (Seg) 5.04 k/uL Normal 1.50-8.10 [facility] Comment on above: Performed By: #### C DP, CMPX, CRP, SED, GLYHGB ####[address] [address] Basophils/100 WBC Auto (Bld) 0 % Normal 0-2 [facility] Comment on above: Performed By: #### C DP, CMPX, CRP, SED, GLYHGB ####[address] [address] Eosinophils 0.24 10*3/uL Normal 0.00-0.44 [facility] Comment on above: Performed By: #### C DP, CMPX, CRP, SED, GLYHGB ####[address] [address] Eosinophils/100 leukocytes 3 % Normal 1-4 [facility] Comment on above: Performed By: #### C DP, CMPX, CRP, SED, GLYHGB ####[address] [address] Erythrocyte distribution width Auto Ratio (RBC) 14.8 % High 11.8-14.4 [facility] Comment on above: Performed By: #### C DP, CMPX, CRP, SED, GLYHGB ####[address] [address] Erythrocyte morphology ANISOCYTOSIS PRESENT Normal [facility] Comment on above: Result Comment: [address] [place] [address] Performed By: #### C DP, CMPX, CRP, SED, GLYHGB ####[address] [address] Erythrocytes (RBC) 3.36 10*6/uL Low 4.21-5.77 [facility] Comment on above: Performed By: #### C DP, CMPX, CRP, SED, GLYHGB ####[address] [address] Granulocytes/100 WBC (Bld) 0.09 k/uL Normal 0.00-0.30 [facility] Comment on above: Performed By: #### C DP, CMPX, CRP, SED, GLYHGB ####[address] [address] Hematocrit (HCT) 28.8 % Low 40.7-50.3 [facility] Comment on above: Performed By: #### C DP, CMPX, CRP, SED, GLYHGB ####[address] [address] Hemoglobin mass conc (Bld) 8.8 g/dL Low 13.0-17.0 [facility] Comment on above: Performed By: #### C DP, CMPX, CRP, SED, GLYHGB ####[address] [address] Immature granulocytes #/vol (Bld) 1 % High 0 [facility] Comment on above: Performed By: #### C DP, CMPX, CRP, SED, GLYHGB ####[address] [address] Lymphocytes 1.73 10*3/uL Normal 1.10-3.70 [facility] Comment on above: Performed By: #### C DP, CMPX, CRP, SED, GLYHGB ####[address] [address] Lymphocytes/100 leukocytes 23 % Low 24-43 [facility] Comment on above: Performed By: #### C DP, CMPX, CRP, SED, GLYHGB ####[address] [address] MCH 26.2 pg Normal 25.2-33.5 [facility] Comment on above: Performed By: #### C DP, CMPX, CRP, SED, GLYHGB ####[address] [address] MCHC mass conc (RBC) 30.6 g/dL Normal 28.4-34.8 [facility] Comment on above: Performed By: #### C DP, CMPX, CRP, SED, GLYHGB ####[address] [address] MCV 85.7 fL Normal 82.6-102.9 [facility] Comment on above: Performed By: #### C DP, CMPX, CRP, SED, GLYHGB ####[address] [address] Monocytes 0.56 10*3/uL Normal 0.10-1.20 [facility] Comment on above: Performed By: #### C DP, CMPX, CRP, SED, GLYHGB ####[address] [address] Monocytes/100 leukocytes 7 % Normal 3-12 [facility] Comment on above: Performed By: #### C DP, CMPX, CRP, SED, GLYHGB ####[address] [address] Neutrophil (Seg) 66 % High 36-65 [facility] Comment on above: Performed By: #### C DP, CMPX, CRP, SED, GLYHGB ####[address] [address] Platelet mean volume (PMV) 9.9 fL Normal 8.1-13.5 [facility] Comment on above: Performed By: #### C DP, CMPX, CRP, SED, GLYHGB ####[address] [place] [address] Platelets 264 10*3/uL Normal 138-453 [facility] Comment on above: Performed By: #### C DP, CMPX, CRP, SED, GLYHGB ####[address] [address] WBC (Leukocytes) 7.7 10*3/uL Normal 3.5-11.3 [facility] Comment on above: Performed By: #### C DP, CMPX, CRP, SED, GLYHGB ####[address] [address] Auto Diff Performed NOT REPORTED Normal [facility] Comment on above: Performed By: #### C DP, CMPX, CRP, SED, GLYHGB ####[address] [address] Platelets NOT REPORTED Normal [facility] Comment on above: Performed By: #### C DP, CMPX, CRP, SED, GLYHGB ####[address] [address] WBC Morphology NOT REPORTED Normal [facility] Comment on above: Performed By: #### C DP, CMPX, CRP, SED, GLYHGB ####[address] [address] Hemoglobin A1Con 04-11-2017 Glucose mass conc 315 mg/dL Normal [facility] Comment on above: Result Comment: The ADA and AACC recommend providing the estimated average glucose result to permit better patient understanding of their HBA1c result.[address] [address] Performed By: #### C DP, CMPX, CRP, SED, GLYHGB ####[address] [address] Hemoglobin A1c/Hemoglobin.total mass fraction (Bld) 12.6 % High 4.0-6.0 [facility] Comment on above: Performed By: #### C DP, CMPX, CRP, SED, GLYHGB ####[address] [place], [place] [id number] Plan of Careon 04-11-2017 HIM IP Note OR Meal Grinder Tender Normal [facility] HIM IP Note OR Meal Grinder Tender Normal [facility] HIM IP Note OR Meal Grinder Tender Normal [facility] HIM IP Note OR Meal Grinder Tender Normal [facility] Progress Noteon 04-11-2017 HIM IP Note OR Meal Grinder Tender Normal [facility] HIM IP Note OR Meal Grinder Tender Normal [facility] HIM IP Note OR Meal Grinder Tender Normal [facility] HIM IP Note OR Meal Grinder Tender Normal [facility] Consulton 04-10-2017 HIM IP Note OR Meal Grinder Tender Normal [facility] Cult,Urine,Cathon 04-10-2017 Cult,Urine,Cath Specimen Description .CATHETERIZED URINE Special Requests NOT REPORTED Culture PRESUMPTIVE ID: LEO ALBICANS >[id number] CFU/ML Report Status FINAL 04/10/2017 Normal [facility] Comment on above: Performed By: #### C DP, CMPX, CRP, SED, GLYHGB ####[address] [place], [place] [id number] Influenza A + B, PCRon 04-10 Influenza A + B, PCR Specimen Descriptio n .NASOPHARYNGEAL SWABSpecial Requests NOT REPORTEDDirect Exam NEGATIVE: Influenza A and B RNA not detected by nucleic acid amplification. The results obtained should be interpreted in conjunction with clinical findings and other laboratory markers. The performance characterisitics of this molecular test were validated by the molecular microbiology department of [facility] [employer]. Report Status FINAL 04/10/2017 [facility] Comment on above: Performed By: #### C DP, CMPX, CRP, SED, GLYHGB ####[address] [place], [place] [id number] OPERATIVE REPORTon 8 OPERATIVE REPORT [address] [place] [address] OPERATIVE REPORTPATIENT NAME: GANGA STINSON : 1960MED REC NO: [id number] ROOM: [id number] NO: [id number] ADMIT DATE: 04/09/2017PROVIDER: William Foster-JudgeDATE OF PROCEDURE: 04/10/2016SURGEON: William Foster-Supervisor [employer], DPMASSISTANT: Benito Chacon DPM, PGY-1PREOPERATIVE DIAGNOSES:1. Deep [...] for recovery. 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 The department of Infectious Disease,Internal Medicine, and specialty medicine services will provide care duringthe inpatient admission. He will return to the care of Dr. Min [facility] [place], upon discharge.INDICATIONS FOR OPERATION: This is a [...] He would follow up with his usual airline managerial supervisor on anoutpatient basis. The departments of Internal Medicine and InfectiousDisease will guide our care in the interim. Cultures should be availablewith sensitivities in approximately 72 hours and consider dischargeplanning then.WILLIAM FOSTER-JUDGED: 04/10/2017 15:31:53 MS/V_SSROR_IJob#: [id number] Doc#: [id number]: Yakov JordanThe [facility] Department of Infectious Disease Internal Medicine Normal [facility] Plan of Careon 04-10-2017 HIM IP Note OR Meal Grinder Tender Normal [facility] HIM IP Note OR Meal Grinder Tender Normal [facility] Progress Noteon 04-10-2017 HIM IP Note OR Meal Grinder Tender Normal [facility] HIM IP Note OR Meal Grinder Tender Normal [facility] XR ANKLE RIGHT STANDARDon XR ANKLE [...] Bakerigned by:Roberto Carlos Cavazos MD04/09/17inal result Normal [facility] C-Reactive Proteinon 018 C reactive protein (CRP) 114.3 mg/L High 0.0-5.0 [facility] Comment on above: Result Comment: [employer] [place] [address] Performed By: #### C DP, CMPX, CRP, SED, GLYHGB ####[facility] [address] [place] [address] CBC with Diffon 04-09-2017 Abs. Basophil <0.03 Normal 0.00-0.20 [facility] Comment on above: Performed By: #### C DP, CMPX, CRP, SED, GLYHGB ####[facility] [address] [address] Abs.Neutrophil (Seg) 5.95 k/uL Normal 1.50-8.10 [facility] Comment on above: Performed By: #### C DP, CMPX, CRP, SED, GLYHGB ####[address] [address] Basophils/100 WBC Auto (Bld) 0 % Normal 0-2 [facility] Comment on above: Performed By: #### C DP, CMPX, CRP, SED, GLYHGB ####[address] [address] Eosinophils 0.11 10*3/uL Normal 0.00-0.44 [facility] Comment on above: Performed By: #### C DP, CMPX, CRP, SED, GLYHGB ####[address] [address] Eosinophils/100 leukocytes 1 % Normal 1-4 [facility] Comment on above: Performed By: #### C DP, CMPX, CRP, SED, GLYHGB ####[address] [address] Erythrocyte distribution width Auto Ratio (RBC) 15.0 % High 11.8-14.4 [facility] Comment on above: Performed By: #### C DP, CMPX, CRP, SED, GLYHGB ####[address] [address] Erythrocyte morphology ANISOCYTOSIS PRESENT Normal [facility] Comment on above: Result Comment: [address] [address] Performed By: #### C DP, CMPX, CRP, SED, GLYHGB ####[address] [address] Erythrocytes (RBC) 3.50 10*6/uL Low 4.21-5.77 [facility] Comment on above: Performed By: #### C DP, CMPX, CRP, SED, GLYHGB ####[address] [address] Granulocytes/100 WBC (Bld) 0.09 k/uL Normal 0.00-0.30 [facility] Comment on above: Performed By: #### C DP, CMPX, CRP, SED, GLYHGB ####[address] [address] Hematocrit (HCT) 29.9 % Low 40.7-50.3 [facility] Comment on above: Performed By: #### C DP, CMPX, CRP, SED, GLYHGB ####[address] [address] Hemoglobin mass conc (Bld) 9.0 g/dL Low 13.0-17.0 [facility] Comment on above: Performed By: #### C DP, CMPX, CRP, SED, GLYHGB ####[address] [address] Immature granulocytes #/vol (Bld) 1 % High 0 [facility] Comment on above: Performed By: #### C DP, CMPX, CRP, SED, GLYHGB ####[address] [address] Lymphocytes 1.60 10*3/uL Normal 1.10-3.70 [facility] Comment on above: Performed By: #### C DP, CMPX, CRP, SED, GLYHGB ####[address] [address] Lymphocytes/100 leukocytes 19 % Low 24-43 [facility] Comment on above: Performed By: #### C DP, CMPX, CRP, SED, GLYHGB ####[address] [place] [address] MCH 25.7 pg Normal 25.2-33.5 [facility] Comment on above: Performed By: #### C DP, CMPX, CRP, SED, GLYHGB ####[address] [address] MCHC mass conc (RBC) 30.1 g/dL Normal 28.4-34.8 [facility] Comment on above: Performed By: #### C DP, CMPX, CRP, SED, GLYHGB ####[address] [address] MCV 85.4 fL Normal 82.6-102.9 [facility] Comment on above: Performed By: #### C DP, CMPX, CRP, SED, GLYHGB ####[place] [address] Monocytes 0.53 10*3/uL Normal 0.10-1.20 [facility] Comment on above: Performed By: #### C DP, CMPX, CRP, SED, GLYHGB ####[place] [address] Monocytes/100 leukocytes 6 % Normal 3-12 [facility] Comment on above: Performed By: #### C DP, CMPX, CRP, SED, GLYHGB ####[place] [address] Neutrophil (Seg) 73 % High 36-65 [facility] Comment on above: Performed By: #### C DP, CMPX, CRP, SED, GLYHGB ####[place] [address] Platelet mean volume (PMV) 9.6 fL Normal 8.1-13.5 [facility] Comment on above: Performed By: #### C DP, CMPX, CRP, SED, GLYHGB ####[address] [address] Platelets 224 10*3/uL Normal 138-453 [facility] Comment on above: Performed By: #### C DP, CMPX, CRP, SED, GLYHGB ####[address] [address] WBC (Leukocytes) 8.3 10*3/uL Normal 3.5-11.3 [facility] Comment on above: Performed By: #### C DP, CMPX, CRP, SED, GLYHGB ####[address] [address] Auto Diff Performed NOT REPORTED Normal [facility] Comment on above: Performed By: #### C DP, CMPX, CRP, SED, GLYHGB ####[address] [address] Platelets NOT REPORTED Normal [facility] Comment on above: Performed By: #### C DP, CMPX, CRP, SED, GLYHGB ####[address] [address] WBC Morphology NOT REPORTED Normal [facility] Comment on above: Performed By: #### C DP, CMPX, CRP, SED, GLYHGB ####[address] [address] Comp Metabolic Pr/rfx MGon 0 - (cont.) Normal [facility] Comment on above: Result Comment: Aver age GFR for 50-59 years old: 93 mL/min/1.73sq mChronic Kidney Disease: <60 mL/min/1.73sq mKidney failure: <15 mL/min/1.73sq meGFR calculated using average adult body mass. Additional eGFR calculator available at:[email or web address] [place] [address] Performed By: #### C DP, CMPX, CRP, SED, GLYHGB ####[address] [address] Alanine aminotransferase (ALT) 9 U/L Normal 5-41 [facility] Comment on above: Performed By: #### C DP, CMPX, CRP, SED, GLYHGB ####[address] [address] Albumin 2.8 g/dL Low 3.5-5.2 [facility] Comment on above: Performed By: #### C DP, CMPX, CRP, SED, GLYHGB ####[address] [address] Albumin/Globulin Ratio 0.7 {ratio} Low 1.0-2.5 [facility] Comment on above: Performed By: #### C DP, CMPX, CRP, SED, GLYHGB ####[address] [address] Alkaline Phos 57 U/L Normal 40-129 [facility] Comment on above: Performed By: #### C DP, CMPX, CRP, SED, GLYHGB ####[address] [address] Anion gap 13 mmol/L Normal 9-17 [facility] Comment on above: Performed By: #### C DP, CMPX, CRP, SED, GLYHGB ####[address] [address] Aspartate aminotransferase (AST) 9 U/L Normal <40 [facility] Comment on above: Performed By: #### C DP, CMPX, CRP, SED, GLYHGB ####[address] [address] Bilirubin Ql (U) 0.26 mg/dL Low 0.3-1.2 [facility] Comment on above: Performed By: #### C DP, CMPX, CRP, SED, GLYHGB ####[address] [place] [address] Calcium 8.4 mg/dL Low 8.6-10.4 [facility] Comment on above: Performed By: #### C DP, CMPX, CRP, SED, GLYHGB ####[address] [address] Chloride 99 mmol/L Normal 98-107 [facility] Comment on above: Performed By: #### C DP, CMPX, CRP, SED, GLYHGB ####[address] [address] CO2 21 mmol/L Normal 20-31 [facility] Comment on above: Performed By: #### C DP, CMPX, CRP, SED, GLYHGB ####[address] [address] Creatinine 1.13 mg/dL Normal 0.70-1.20 [facility] Comment on above: Performed By: #### C DP, CMPX, CRP, SED, GLYHGB ####[address] [address] eGFR (non-black) mL/min/{1.73_m2} Normal >60 [facility] Comment on above: Performed By: #### C DP, CMPX, CRP, SED, GLYHGB ####[address] [address] Glucose mass conc 267 mg/dL High 70-99 [facility] Comment on above: Performed By: #### C DP, CMPX, CRP, SED, GLYHGB ####[address] [address] Potassium molar conc 4.3 mmol/L Normal 3.7-5.3 [facility] Comment on above: Performed By: #### C DP, CMPX, CRP, SED, GLYHGB ####[facility] [address] [place] [address] Protein 7.0 g/dL Normal 6.4-8.3 [facility] Comment on above: Performed By: #### C DP, CMPX, CRP, SED, GLYHGB ####[facility] [address] [place] [address] Sodium 133 mmol/L Low 135-144 [facility] Comment on above: Performed By: #### C DP, CMPX, CRP, SED, GLYHGB ####[address] [place] [address] Urea nitrogen 22 mg/dL High -20 [facility] Comment on above: Performed By: #### C DP, CMPX, CRP, SED, GLYHGB ####[facility] [address] [place] [address] BUN/CRE Ratio NOT REPORTED Normal -20 [facility] Comment on above: Performed By: #### C DP, CMPX, CRP, SED, GLYHGB ####[facility] [address] [place] [address] Staging: NOT REPORTED Normal [facility] Comment on above: Performed By: #### C DP, CMPX, CRP, SED, GLYHGB ####[address] [place] [address] Consulton 04-09-2017 HIM IP Note OR Meal Grinder Tender Normal [facility] HIM IP Note OR Meal Grinder Tender Normal [facility] HIM IP Note OR Meal Grinder Tender Normal [facility] Flu A/B Ag Detectionon 04-09 Flu A/B Ag Detection Specimen Descriptio n .NASOPHARYNGEAL SWABSpecial Requests NOT REPORTEDDirect Exam PRESUMPTIVE NEGATIVE for Influenza A + B antigens. PCR testing to confirm this result is available upon request. Specimen will be saved in the laboratory for 7 days. Please call [phone] if PCR testing is indicated. Report Status FINAL 04/09/2017 Normal [facility] Comment on above: Performed By: #### C DP, CMPX, CRP, SED, GLYHGB ####[address] [place] [address] History and Physicalon 04-09 HIM IP Note OR Meal Grinder Tender Normal [facility] MRI FOOT RIGHT W WO CONTRAST [...] suspected despite a lack of definitive precontrast E1danbbufb changes.Large ulcer overlying the lateral malleolus with underlying osteomyelitis.Interpreted by:SAMMI Tellezigned by:Jesusita Mock MD04/09/17inal result Normal [facility] Op Noteon 04-09-2017 HIM IP Note OR Meal Grinder Tender Normal [facility] Plan of Careon 04-09-2017 HIM IP Note OR Meal Grinder Tender Normal [facility] HIM IP Note OR Meal Grinder Tender Normal [facility] Progress Noteon 04-09-2017 HIM IP Note OR Meal Grinder Tender Normal [facility] HIM IP Note OR Meal Grinder Tender Normal [facility] HIM IP Note OR Meal Grinder Tender Normal [facility] RSV Ag Detectionon 8 RSV Ag Detection Specimen Description .NASOPHARYNGEAL SWABSpecial Requests NOT REPORTEDDirect Exam Presumptive negative for the presence of RSV antigen. PCR testing to confirm this result is available upon request. Specimen will be saved in the laboratory for 7 days. Please call [phone] if PCR testing is indicated. Report Status FINAL 04/09/2017 Normal [facility] Comment on above: Performed By: #### C DP, CMPX, CRP, SED, GLYHGB ####[address] [place] [address] Sedimentation Rateon 018 Sedimentation Rate 80 mm High 0-10 [facility] Comment on above: Result Comment: [employer] [facility] [place] [address] Performed By: #### C DP, CMPX, CRP, SED, GLYHGB ####[employer] [address] [place] [address] XR FOOT RIGHT STANDARDon XR FOOT RIGHT [...] by:SAMMI Tellezigned by:Jesusita Mock MD04/09/17inal result Normal [facility] Vital Signs Date Time Vital Sign Value Performing Clinician Facility 10-02-2024 13:45-0400 Diastolic blood pressure 63 mm[Hg] Fidel Abbott MD Work Phone: [facility] 10-02-2024 13:45-0400 Heart rate 55 /min Fidel Abbott MD Work Phone: [facility] 10-02-2024 13:45-0400 Respiratory rate 16 /min Fidel Abbott MD Work Phone: [facility] 10-02-2024 13:45-0400 SaO2% (BldA) [Mass fraction] 97 % Fidel Abbott MD Work Phone: [facility] 10-02-2024 13:45-0400 Systolic blood pressure 108 mm[Hg] Fidel Abbott MD Work Phone: [facility] 10-02-2024 13:00-0400 Inhaled oxygen flow rate 6 L/min Fidel Abbott MD Work Phone: [facility] 10-02-2024 10:58-0400 Body height 180.34 cm Fidel Abbott MD Work Phone: [facility] 10-02-2024 10:58-0400 Body temperature 98.4 [degF] Fidel Abbott MD Work Phone: [facility] 10-02-2024 10:58-0400 Body weight 102.05 kg Fidel Abbott MD Work Phone: [facility] 08-30-2024 12:17-0400 Body temperature 96.7 [degF] Fidel Abbott MD Work Phone: [facility] 08-30-2024 12:17-0400 Diastolic blood pressure 42 mm[Hg] Fidel Abbott MD Work Phone: [facility] 08-30-2024 12:17-0400 Heart rate 56 /min Fidel Abbott MD Work Phone: [facility] 08-30-2024 12:17-0400 SaO2% (BldA) [Mass fraction] 97 % Fidel Abbott MD Work Phone: [facility] 08-30-2024 12:17-0400 Systolic blood pressure 98 mm[Hg] Fidel Abbott MD Work Phone: [facility] 08-15-2024 11:19-0400 Body height 180.34 cm Fidel Abbott MD Work Phone: [facility] 08-15-2024 11:19-0400 Body mass index (BMI) [Ratio] 31.4 kg/m2 Fidel Abbott MD Work Phone: [facility] 08-15-2024 11:19-0400 Body weight 102.05 kg Fidel Abbott MD Work Phone: [facility] 08-15-2024 10:28-0400 Body temperature 98.1 [degF] Fidel Abbott MD Work Phone: [facility] 08-15-2024 10:28-0400 Diastolic blood pressure 70 mm[Hg] Fidel Abbott MD Work Phone: [facility] 08-15-2024 10:28-0400 Heart rate 71 /min Fidel Abbott MD Work Phone: [facility] 08-15-2024 10:28-0400 Respiratory rate 16 /min Fidel Abbott MD Work Phone: [facility] 08-15-2024 10:28-0400 Systolic blood pressure 134 mm[Hg] Fidel Abbott MD Work Phone: [facility] 07-31-2024 10:49-0400 Body height 180.3 cm Fidel Abbott MD Work Phone: [facility] 07-31-2024 10:49-0400 Body temperature 97.5 [degF] Fidel Abbott MD Work Phone: [facility] 07-31-2024 10:49-0400 Diastolic blood pressure 70 mm[Hg] Fidel Abbott MD Work Phone: [facility] 07-31-2024 10:49-0400 Heart rate 57 /min Fidel Abbott MD Work Phone: [facility] 07-31-2024 10:49-0400 Respiratory rate 18 /min Fidel Abbott MD Work Phone: [facility] 07-31-2024 10:49-0400 SaO2% (BldA) [Mass fraction] 98 % Fidel Abbott MD Work Phone: [facility] 07-31-2024 10:49-0400 Systolic blood pressure 142 mm[Hg] Fidel Abbott MD Work Phone: [facility] 03-14-2024 11:23-0500 Body height 180.34 cm Fidel Abbott MD Work Phone: [facility] 03-14-2024 11:23-0500 Body mass index (BMI) [Ratio] 31.4 kg/m2 Fidel Abbott MD Work Phone: [facility] 03-14-2024 11:23-0500 Body weight 102.05 kg Fidel Abbott MD Work Phone: [facility] 03-14-2024 10:50-0500 Body temperature 98.2 [degF] Fidel Abbott MD Work Phone: [facility] 03-14-2024 10:50-0500 Diastolic blood pressure 67 mm[Hg] Fidel Abbott MD Work Phone: [facility] 03-14-2024 10:50-0500 Heart rate 61 /min Fidel Abbott MD Work Phone: [facility] 03-14-2024 10:50-0500 Respiratory rate 18 /min Fidel Abbott MD Work Phone: [facility] 03-14-2024 10:50-0500 Systolic blood pressure 128 mm[Hg] Fidel Abbott MD Work Phone: [facility] 02-08-2024 11:44-0500 Body height 180.34 cm Fidel Abbott MD Work Phone: [facility] 02-08-2024 11:44-0500 Body mass index (BMI) [Ratio] 31.4 kg/m2 Fidel Abbott MD Work Phone: [facility] 02-08-2024 11:44-0500 Body weight 102.05 kg Fidel Abbott MD Work Phone: [facility] 02-08-2024 10:51-0500 Body temperature 98.1 [degF] Fidel Abbott MD Work Phone: [facility] 02-08-2024 10:51-0500 Diastolic blood pressure 66 mm[Hg] Fidel Abbott MD Work Phone: [facility] 02-08-2024 10:51-0500 Heart rate 64 /min Fidel Abbott MD Work Phone: [facility] 02-08-2024 10:51-0500 Respiratory rate 18 /min Fidel Abbott MD Work Phone: [facility] 02-08-2024 10:51-0500 Systolic blood pressure 125 mm[Hg] Fidel Abbott MD Work Phone: [facility] 01-20-2024 11:52-0400 Body height 180.3 cm Fidel Abbott MD Work Phone: [facility] 01-20-2024 11:52-0400 Body temperature 97.5 [degF] Fidel Abbott MD Work Phone: [facility] 01-20-2024 11:52-0400 Diastolic blood pressure 58 mm[Hg] Fidel Abbott MD Work Phone: [facility] 01-20-2024 11:52-0400 Heart rate 57 /min Fidel Abbott MD Work Phone: [facility] 01-20-2024 11:52-0400 Respiratory rate 20 /min Fidel Abbott MD Work Phone: [facility] 01-20-2024 11:52-0400 SaO2% (BldA) [Mass fraction] 99 % Fidel Abbott MD Work Phone: [facility] 01-20-2024 11:52-0400 Systolic blood pressure 130 mm[Hg] Fidel Abbott MD Work Phone: [facility] 11-18-2023 13:47-0400 Body height 180.3 cm Fidel Abbott MD Work Phone: [facility] 11-18-2023 13:47-0400 Body temperature 97.5 [degF] Fidel Abbott MD Work Phone: [facility] 11-18-2023 13:47-0400 Diastolic blood pressure 70 mm[Hg] Fidel Abbott MD Work Phone: [facility] 11-18-2023 13:47-0400 Heart rate 60 /min Fidel Abbott MD Work Phone: [facility] 11-18-2023 13:47-0400 Respiratory rate 18 /min Fidel Abbott MD Work Phone: [facility] 11-18-2023 13:47-0400 SaO2% (BldA) [Mass fraction] 97 % Fidel Abbott MD Work Phone: [facility] 11-18-2023 13:47-0400 Systolic blood pressure 160 mm[Hg] Fidel Abbott MD Work Phone: [facility] 06-04-2023 13:27-0500 Diastolic blood pressure 58 mm[Hg] MD Fidel Abbott Work Phone: [facility] 06-04-2023 13:27-0500 Heart rate 60 /min MD Fidle Abbott Work Phone: [facility] 06-04-2023 13:27-0500 Respiratory rate 12 /min MD Fidel Abbott Work Phone: [facility] 06-04-2023 13:27-0500 SaO2% (BldA) [Mass fraction] 98 % MD Fidel Abbott Work Phone: [facility] 06-04-2023 13:27-0500 Systolic blood pressure 135 mm[Hg] MD Fidel Abbott Work Phone: [facility] 06-04-2023 10:49-0500 Body height 180.34 cm MD Fidel Abbott Work Phone: [facility] 06-04-2023 10:49-0500 Body temperature 98 [degF] MD Fidel Abbott Work Phone: [facility] 06-04-2023 10:49-0500 Body weight 114.3 kg MD Fidel Abbott Work Phone: [facility] 05-06-2023 10:40-0500 Body height 177.8 cm Jonathan Bah DPM Work Phone: [facility] 05-06-2023 10:40-0500 Body mass index (BMI) [Ratio] 35.87 kg/m2 Jonathan Bah DPM Work Phone: [facility] 05-06-2023 10:40-0500 Body weight 113.4 kg Jonathan Bah DPM Work Phone: [facility] 05-06-2023 10:40-0500 Diastolic blood pressure 80 mm[Hg] Jonathan Bah DPM Work Phone: [facility] 05-06-2023 10:40-0500 Heart rate 79 /min Jonathan Bah DPM Work Phone: [facility] 05-06-2023 10:40-0500 Systolic blood pressure 133 mm[Hg] Jonathan Bah DPM Work Phone: [facility] 05-04-2023 13:06-0500 Body mass index (BMI) [Ratio] 34.8 kg/m2 MD Fidel Abbott Work Phone: [facility] 05-04-2023 12:48-0500 Body height 180.34 cm MD Fidel Abbott Work Phone: [facility] 05-04-2023 12:48-0500 Body weight 113.39 kg MD Fidel Abbott Work Phone: [facility] 05-04-2023 11:25-0500 Body temperature 97.3 [degF] MD Fidel Abbott Work Phone: [facility] 05-04-2023 11:25-0500 Diastolic blood pressure 78 mm[Hg] MD Fidel Abbott Work Phone: [facility] 05-04-2023 11:25-0500 Heart rate 64 /min MD Fidel Abbott Work Phone: [facility] 05-04-2023 11:25-0500 Respiratory rate 18 /min MD Fidel Abbott Work Phone: [facility] 05-04-2023 11:25-0500 Systolic blood pressure 177 mm[Hg] MD Fidel Abbott Work Phone: [facility] 11-09-2022 13:10-0400 Blood Pressure Location Jovanny VILLA [facility] 11-09-2022 13:10-0400 Diastolic blood pressure 72 mm[Hg] Jovanny VILLA [facility] 11-09-2022 13:10-0400 Heart rate 78 /min Jovanny VILLA [facility] 11-09-2022 13:10-0400 Systolic blood pressure 148 mm[Hg] Jovanny VILLA [facility] 06-26-2022 14:00-0400 Body temperature 97.81 [degF] Eli Pimentel MD Work Phone: [facility] [employer] 06-26-2022 14:00-0400 Diastolic blood pressure 62 mm[Hg] Eli Pimentel MD Work Phone: [facility] [employer] 06-26-2022 14:00-0400 Heart rate 70 /min Eil Pimentel MD Work Phone: [facility] 06-26-2022 14:00-0400 Respiratory rate 18 /min Eli Pimentel MD Work Phone: [facility] 06-26-2022 14:00-0400 SaO2% (BldA) [Mass fraction] 95 % Eli Pimentel MD Work Phone: [facility] 06-26-2022 14:00-0400 Systolic blood pressure 144 mm[Hg] Eli Pimentel MD Work Phone: [facility] 06-26-2022 05:30-0400 Body mass index (BMI) [Ratio] 34.28 kg/m2 Eli Pimentel MD Work Phone: [facility] 06-26-2022 05:30-0400 Body weight 111.49 kg Eli Pimentel MD Work Phone: [facility] 06-25-2022 04:54-0400 Body height 180.3 cm Eli Pimentel MD Work Phone: [facility] 06-02-2022 12:14-0500 Body height 172.72 cm MD Fidel Abbott Work Phone: [facility] 06-02-2022 12:14-0500 Body mass index (BMI) [Ratio] 41 kg/m2 MD Fidel Abbott Work Phone: [facility] 06-02-2022 12:14-0500 Body weight 122.46 kg MD Fidel Abbott Work Phone: [facility] 06-02-2022 09:52-0500 Body temperature 97 [degF] MD Fidel Abbott Work Phone: [facility] 06-02-2022 09:52-0500 Diastolic blood pressure 73 mm[Hg] MD Fidel Abbott Work Phone: [facility] 06-02-2022 09:52-0500 Heart rate 76 /min MD Fidel Abbott Work Phone: [facility] 06-02-2022 09:52-0500 Systolic blood pressure 155 mm[Hg] MD Fidel Abbott Work Phone: [facility] 03-03-2022 12:06-0500 Body height 180.34 cm MD Fidel Abbott Work Phone: [facility] 03-03-2022 12:06-0500 Body mass index (BMI) [Ratio] 34.8 kg/m2 MD Fidel Abbott Work Phone: [facility] 03-03-2022 12:06-0500 Body weight 113.39 kg MD Fidel Abbott Work Phone: [facility] 03-03-2022 11:37-0500 Body temperature 97.7 [degF] MD Fidel Abbott Work Phone: [facility] 03-03-2022 11:37-0500 Diastolic blood pressure 56 mm[Hg] MD Fidel Abbott Work Phone: [facility] 03-03-2022 11:37-0500 Heart rate 68 /min MD Fidel Abbott Work Phone: [facility] 03-03-2022 11:37-0500 Respiratory rate 18 /min MD Fidel Abbott Work Phone: [facility] 03-03-2022 11:37-0500 Systolic blood pressure 122 mm[Hg] MD Fidel Abbott Work Phone: [facility] Encounters Encounter Date Encounter Type Care Provider Facility Start: 11-01-2024 End: 11-02-2024 Refill Fidel Abbott MD Work Phone: [facility] Comment on above: Type 2 diabetes ez itus with hyperglycemia, without long-term current use of insulin (HCC) Start: 10-10-2024 ambulatory Cathy Brar Facility: [facility] Start: 10-02-2024 End: 10-03-2024 External Result Encounter Cathy Brar MD Work Phone: [facility] Department Unsolicited Start: 10-02-2024 End: 10-03-2024 External Result Encounter Cathy Edwards MD Work Phone: [facility] Unsolicited Start: 10-02-2024 End: 10-02-2024 Admission to same day surgery center Cathy Brar [facility] [place] Start: 10-02-2024 End: 10-02-2024 ambulatory Fidel Abbott MD Work Phone: [facility] Work Phone: Start: 09-26-2024 End: 09-26-2024 Clinisync Result Encounter Generic External Data Provider [facility] External [facility] Unsolicited Start: 09-26-2024 End: 09-26-2024 Clinisync Result Encounter Generic External Data Provider [facility] External [facility] Unsolicited Start: 09-11-2024 End: 09-11-2024 Clinisync Result Encounter Generic External Data Provider [facility] External [facility] Unsolicited Start: 09-11-2024 End: 09-11-2024 Clinisync Result Encounter Generic External Data Provider [facility] External [facility] Unsolicited Start: 08-30-2024 End: 08-30-2024 Patient encounter procedure Fidel Abbott MD Work Phone: [facility] Work Phone: Start: 08-30-2024 End: 08-30-2024 ambulatory Fidel Abbott MD Work Phone: [facility] Work Phone: Start: 08-15-2024 Registered Recurring Fidel dubose MD Work Phone: [facility] [place] Work Phone: Start: 08-10-2024 End: 08-10-2024 Clinisync Result Encounter Generic External Data Provider [facility] External Department Unsolicited Start: 08-10-2024 End: 08-10-2024 Clinisync Result Encounter Generic External Data Provider [facility] External [facility] Unsolicited Start: 07-31-2024 End: 07-31-2024 Bamboo flowsheet Fidel Abbott MD Work Phone: [facility] Start: 07-31-2024 End: 07-31-2024 Bamboo flowsniraj Abbott MD Work Phone: [facility] [...] (BMI) of 36.0 to 36.9 in adult ([facility]); Type 2 diabetes mellitus with other specified complication; Hyperlipidemia, unspecified ([facility]/HCC); Pressure ulcer of right heel, unstageable ([facility]); Type 2 diabetes mellitus with other skin ulcer (CODE); Paraplegia, unspecified; Diabetes mellitus due to underlying condition with diabetic polyneuropathy ([facility]) Start: 07-31-2024 End: 07-31-2024 Patient encounter procedure Fidel Abbott MD Work Phone: [facility] Start: 07-31-2024 End: 07-31-2024 ambulatory FIDEL ABBOTT Not Available Start: 05-30-2024 End: 05-30-2024 Clinisync Result Encounter Generic External Data Provider [facility] External [facility] Unsolicited Start: 05-30-2024 End: 05-30-2024 Clinisync Result Encounter Generic External Data Provider [facility] External [facility] Unsolicited Start: 05-02-2024 ambulatory ANGIE Acuna ty:[facility] Start: 04-17-2024 End: 04-17-2024 Telephone encounter Scanning Provider External [facility] Start: 04-14-2024 End: 04-14-2024 Telephone encounter Mary Conner CMA [facility] Start: 04-06-2024 End: 04-06-2024 Telephone encounter Mary Conner CMA [facility] Start: 03-14-2024 End: 03-14-2024 ambulatory Fidel Abbott MD Work Phone: [facility] Work Phone: Start: 03-14-2024 End: 03-14-2024 Discharged Recurring Fidel Abbott MD Work Phone: [facility] [place] Work Phone: Start: 03-13-2024 End: 03-13-2024 Refill Fidel Abbott MD Work Phone: [facility] Comment on above: Pruritus Start: 03-10-2024 Non-patient / Non-visit Fidel campbell MD Work Phone: [facility] Work Phone: Start: 03-10-2024 End: 03-10-2024 [...] Registered Recurring Fidel dubose MD Work Phone: [facility] [place] Work Phone: Start: 02-08-2024 End: 02-08-2024 Patient encounter procedure Fidel Abbott MD Work Phone: [facility] [place] Work Phone: Start: 02-08-2024 End: 02-08-2024 ambulatory Fidel Abbott MD Work Phone: 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) (Primary Dx) Start: 01-12-2024 End: 01-12-2024 Telephone encounter Scanning Provider External [facility] Start: 12-02-2023 End: 12-02-2023 Clinisync Result Encounter Generic External Data Provider [facility] External [facility] Unsolicited Start: 12-02-2023 End: 12-02-2023 Clinisync Result Encounter Generic External Data Provider [facility] External [facility] Unsolicited Start: 11-18-2023 End: 11-18-2023 Office outpatient visit 25 minutes Fidel Abbott MD Work Phone: [facility] Comment on above: Type 2 diabetes ez [...] 11-12-2023 End: 11-12-2023 ambulatory Jovanny VILLA Facility:[facility] Start: 11-12-2023 End: 11-12-2023 Patient encounter procedure Jovanny VILLA [facility] Start: 11-08-2023 End: 11-08-2023 ambulatory Jovanny VILLA Facility:[id number] Start: 10-11-2023 End: 10-11-[address] 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 (CMS/HCC); Acute complete paraplegia (CMS/HCC); Acute osteomyelitis of left fibula (CMS/HCC); Foot ulcer, right, with fat layer exposed (CMS/HCC); Venous insufficiency Start: 05-04-2023 End: 05-04-2023 ambulatory MD Fidel Abbott Work Phone: [facility] Work Phone: Start: 05-04-2023 End: 05-04-2023 Discharged Recurring MD Fidel Abbtot Work Phone: [facility] [place] Work Phone: Start: 11-09-2022 End: 11-09-2022 Patient encounter procedure Jovanny VILLA [facility] Start: 09-25-2022 End: 09-26-2022 ambulatory FIDEL ABBOTT [facility] Start: 09-18-2022 End: 09-21-2022 ambulatory ASHLEE ERWIN [facility] Start: 09-18-2022 End: 09-20-2022 Subsequent hospital visit by physician Francisca Ultrasound Room 2 [facility] Ultrasound Comment on above: Cauda equina syndrom e (HCC); Neurogenic bladder; Urinary retention; Urinary incontinence without sensory awareness Start: 2022 End: 2022 ambulatory ANGELES DEMI [facility] Start: 07-02-2022 End: 07-03-2022 ambulatory SHELLY Tellez [facility] Start: 07-02-2022 End: 07-02-2022 Subsequent hospital visit by physician Fidel Abbott MD Work Phone: [facility] Laboratory Comment on above: Acute kidney injury (HCC); Iron deficiency anemia, unspecified iron deficiency anemia type Start: 06-22-2022 End: 06-26-2022 Evaluation and management of inpatient [facility] Start: 06-22-2022 End: 06-26-2022 Evaluation and management of inpatient Eli Pimentel MD Work Phone[facility] Comment on above: Acute kidney injury (HCC) (Primary Dx); Hyperkalemia; Iron deficiency anemia, unspecified iron deficiency anemia type Start: 06-22-2022 End: 06-22-2022 ambulatory ANGELES NAGY [facility] Start: 06-22-2022 End: 06-22-2022 Subsequent hospital visit by physician Fidel Abbott MD Work Phone[facility] Comment on above: Neurogenic bladder Start: 06-02-2022 End: 06-02-2022 ambulatory MD Fidel Abbott Work Phone: [facility] Work Phone: Start: 06-02-2022 End: 06-02-2022 Discharged Recurring MD Fidel Abbott Work Phone: [facility] [place] Work Phone: Start: 03-14-2022 End: 03-15-[address] CATHY BRAR Facility:[facility] Start: 03-03-2022 End: 03-03-2022 ambulatory MD Fidel Abbott Work Phone: [facility] Work Phone: Start: 03-03-2022 End: 03-03-2022 Discharged Recurring MD Fidel Abbott Work Phone: [facility] [place] Work Phone: Start: 02-26-2022 End: 02-27-[address] CATHY BRAR Facility:[facility] Start: 05-30-2021 End: 05-31-[address] FIDEL ABBOTT Facility:[facility] Start: 04-09-2017 End: 04-13-2017 Evaluation and management of inpatient [facility] Procedures Date Procedure Procedure Detail Performing Clinician Start: 10-02-2024 GLUCOSE POCT GLUCOMETERS Cathy Lee Work Phone: Start: 10-02-2024 AEROBIC CULTURE Cathy Brar MD Work Phone: Start: 10-02-2024 ANAEROBIC CULTURE Cathy Brar MD Work Phone: Start: 10-02-2024 Debridement Fidel Abbott MD Work Phone: Start: 10-02-2024 GLUCOSE POCT GLUCOMETERS Cathy Lee Work Phone: Start: 09-26-2024 ALL CBC WITH AUTO DIFF Generic External Data Provider Start: 09-11-2024 ALL CBC WITH AUTO DIFF Generic External Data Provider Start: 08-10-2024 ALL CBC WITH AUTO DIFF Generic External Data Provider Start: 05-30-2024 ALL CBC WITH AUTO DIFF [...] retroperitoneal real time w/image complete Ashlee Erwin T[employer] PROCESS[employer] - [employer] Work Phone: Start: 2022 Optical urethrotomy Jovanny VILLA Start: 07-02-2022 Basic metabolic panel calcium total Hoda jose Mondragon TAX PROCESSOR - [employer] Work Phone: Start: 06-26-2022 End: 06-26-2022 COLONOSCOPY [...] actv qual feces 1 deter Shelly Mondragon TAX PROCESSOR - TITLE CURATIVE SPECIALIST Work Phone: Start: 06-25-2022 Cul bact xcpt urine blood/stool aerobic isol aYkov Min DPM Work Phone: Start: 06-25-2022 Blood count complete auto&auto difrntl wbc Katerina Atkins MD Work Phone: Start: 06-25-2022 End: 06-25-2022 Rhythm ecg 1-3 leads w/interpretation & report Unknown Provider Result Start: 06-25-2022 Antibody screen Eli Pimentel MD Work Phone: Start: 06-24-2022 Assay of troponin quantitative Zoila ANN-C Work Phone: Start: 06-24-2022 End: 06-24-2022 Transfusion of packed red blood cells Shelly Mondragon TAX PROCESSOR - TITLE CURATIVE SPECIALIST Work Phone: Start: 06-24-2022 Echo tthrc r-t 2d w/wom-mode compl spec&colr d Shelly Mondragon TAX PROCESSOR - TITLE CURATIVE SPECIALIST Work Phone: Start: 06-24-2022 Blood typing serologic abo Shelly Mondragon TAX PROCESSOR - TITLE CURATIVE SPECIALIST Work Phone: Start: 06-24-2022 GLUCOSE, WHOLE BLOOD Matias Garcia MD Work Phone: Start: 06-24-2022 End: 06-24-2022 Prothrombin time Shelly Mondragon TAX PROCESSOR - TITLE CURATIVE SPECIALIST Work Phone: Start: 06-24-2022 VITAMIN B12 & FOLATE Shelly Mondragon TAX PROCESSOR - TITLE CURATIVE SPECIALIST Work Phone: Start: 06-24-2022 End: 06-25-2022 Rhythm ecg 1-3 leads w/interpretation & report Unknown Provider Result Start: 06-23-2022 End: 06-24-2022 Assay of troponin quantitative Zoila ANN-C Work Phone: Start: 06-23-2022 Rhythm ecg 1-3 leads w/interpretation & report Unknown Provider Result Start: 06-23-2022 End: 06-23-2022 Ecg routine ecg w/least 12 lds i&r only Zoila Villafuetre PA-C Work Phone: Start: 06-23-2022 GLUCOSE, WHOLE BLOOD Matias Garcia MD Work Phone: Start: 06-23-2022 Radex ankle complete minimum 3 views Shelly Mondragon TAX PROCESSOR - TITLE CURATIVE SPECIALIST Work Phone: Start: 06-23-2022 Lipid panel Zoila [...] ONTIVEROS Start: 04-09-2017 CBC WITH AUTO DIFFERENTIAL MIHCAELA ONTIVEROS Start: 04-09-2017 COMPREHENSIVE METABOLIC PANEL W/ [...] ONTIVEROS Start: 04-09-2017 HOME BIPAP OR CPAP MICHEALA ONTIVEROS Start: 04-09-2017 INSERT ROWE CATHETER MICHAELA [...] 06-26-2032 Screening for malignant neoplasm of colon [facility] Start: 02-01-2025 End: 02-01-2025 Patient encounter procedure 02/01/2025 10:30 AM EST Office Visit [facility] [address] [place] [id number] Fidel Abbott MD [address] [place] [phone] [facility] Start: 11-27-2024 Influenza vaccination [facility] Start: 10-10-2024 Adult BMI Screening Adult BMI Screening [facility] Start: 10-10-2024 Tobacco Screening Tobacco Screening [facility] Start: 10-02-2024 Aerobic Culture Aerobic Culture [facility] Start: 10-02-2024 Anaerobic Culture Anaerobic Culture [facility] Start: 10-02-2024 Microscopic observation [Identifier] in Unspecified specimen by Gram stain [facility] Start: 10-02-2024 End: 10-02-2024 [facility] Start: 08-30-2024 Ankle brachial pressure index [facility] Start: 07-31-2024 End: 07-31-2025 Basic metabolic 1998 panel - Serum or Plasma Basic metabolic panel Lab Routine Annual physical exam Expected: 07/31/2024 (Approximate), Expires: 07/31/2025 [facility] Comment on above: Expected: 07/31/2024 (Approximate), Expi res: 07/31/2025 Start: 07-31-2024 End: 07-31-2025 CBC W Auto Differential panel - Blood CBC and differential Lab Routine Annual physical exam Expected: 07/31/2024 (Approximate), Expires: 07/31/2025 [facility] Comment on above: Expected: 07/31/2024 (Approximate), Expi res: 07/31/2025 Start: 07-31-2024 End: 07-31-2025 Hemoglobin A1c/Hemoglobin.total in Blood Hemoglobin A1c Lab Routine Annual physical exam Expected: 07/31/2024 (Approximate), Expires: 07/31/2025 [facility] Comment on above: Expected: 07/31/2024 (Approximate), Expi res: 07/31/2025 Start: 07-31-2024 End: 07-31-2025 Hepatic function 2000 panel - Serum or Plasma Hepatic function panel Lab Routine Annual physical exam Expected: 07/31/2024 (Approximate), Expires: 07/31/2025 [facility] Comment on above: Expected: 07/31/2024 (Approximate), Expi res: 07/31/2025 Start: 07-31-2024 End: 07-31-2025 Lipid 1996 panel - Serum or Plasma Lipid panel Lab Routine Annual physical exam Expected: 07/31/2024 (Approximate), Expires: 07/31/2025 [facility] Comment on above: Expected: 07/31/2024 (Approximate), Expi res: 07/31/2025 Start: 07-31-2024 End: 07-31-2025 Microalbumin/Creatinine panel in random Urine Microalbumin / creatinine, urine ratio Lab Routine Type 2 diabetes mellitus with hyperglycemia, without long-term current use of insulin ([facility]) Expected: 07/31/2024 (Approximate), Expires: 07/31/2025 [facility] Work Phone: Comment on above: Expected: 07/31/2024 (Approximate), Expi res: 07/31/2025 Start: 07-31-2024 End: 07-31-2025 Prostate specific Ag [Mass/volume] in Serum or Plasma PSA Lab Routine Annual physical exam Expected: 07/31/2024 (Approximate), Expires: 07/31/2025 [facility] Comment on above: Expected: 07/31/2024 (Approximate), Expi res: 07/31/2025 Start: 07-31-2024 End: 07-31-2025 Thyrotropin [Units/volume] in Serum or Plasma TSH Lab Routine Annual physical exam Expected: 07/31/2024 (Approximate), Expires: 07/31/2025 [facility] Comment on above: Expected: 07/31/2024 (Approximate), Expi res: 07/31/2025 Start: 07-31-2024 End: 07-31-2024 Patient encounter procedure 07/31/2024 10:45 AM EDT Office Visit [facility] [address] [place] [address] Fidel Abbott MD [address] [place] [address] Arrived [facility] Comment on above: Arrived Start: 05-22-2024 End: 05-22-2024 Patient encounter procedure 05/22/2024 1:15 PM EST Office Visit [facility] [address] [place] [address] Fidel Abbott MD [address] [place] [phone] [facility] Start: 04-20-2024 End: 04-20-2024 Patient encounter procedure 04/20/2024 1:30 PM EST Office Visit [facility] [address] [place] [phone] Iraj Valdivia MD [address] [place] [address] [phone] [facility] Start: 04-13-2024 End: 04-13-2024 Patient encounter procedure 04/13/2024 2:00 PM EST Office Visit [facility] [address] [place] [phone] Iraj Valdiiva MD [address] [place] [phone] [facility] Start: 01-20-2024 End: 01-20-2024 Patient encounter procedure 01/20/2024 11:45 AM EDT Office Visit [facility] [address] [place] [address] Fidel Abbott MD [address] [place] [phone] Arrived [facility] Comment on above: Arrived Start: 11-28-2023 Influenza vaccination [facility] Start: 11-18-2023 End: 11-17-2024 Albumin, urine, random Albumin, urine, random Lab Routine Type 2 diabetes mellitus with hyperglycemia, without long-term current use of insulin (CMS/HCC) Expected: 11/18/2023 (Approximate), Expires: 11/17/2024 [facility] Work Phone: Comment on above: Expected: 11/18/2023 (Approximate), Expi res: 11/17/2024 Start: 11-18-2023 End: 11-17-2024 Basic metabolic 1998 panel - Serum or Plasma Basic metabolic panel Lab Routine Encounter for long-term (current) use of medications Expected: 11/18/2023 (Approximate), Expires: 11/17/2024 [facility] Comment on above: Expected: 11/18/2023 (Approximate), Expi res: 11/17/2024 Start: 11-18-2023 End: 11-17-2024 CBC W Auto Differential panel - Blood CBC and differential Lab Routine Encounter for long-term (current) use of medications Expected: 11/18/2023 (Approximate), Expires: 11/17/2024 [facility] Comment on above: Expected: 11/18/2023 (Approximate), Expi res: 11/17/2024 Start: 11-18-2023 End: 11-17-2024 Hemoglobin A1c/Hemoglobin.total in Blood Hemoglobin A1c Lab Routine Type 2 diabetes mellitus with hyperglycemia, without long-term current use of insulin (CMS/HCC) Expected: 11/18/2023 (Approximate), Expires: 11/17/2024 [facility] Comment on above: Expected: 11/18/2023 (Approximate), Expi res: 11/17/2024 Start: 11-18-2023 End: 11-17-2024 Hepatic function 2000 panel - Serum or Plasma Hepatic function panel Lab Routine Encounter for long-term (current) use of medications Expected: 11/18/2023 (Approximate), Expires: 11/17/2024 [facility] Comment on above: Expected: 11/18/2023 (Approximate), Expi res: 11/17/2024 Start: 11-18-2023 End: 11-17-2024 Lipid 1996 panel - Serum or Plasma Lipid panel Lab Routine Type 2 diabetes mellitus with hyperglycemia, without long-term current use of insulin ([facility]) Expected: 11/18/2023 (Approximate), Expires: 11/17/2024 [facility] Comment on above: Expected: 11/18/2023 (Approximate), Expi res: 11/17/2024 Start: 10-18-2023 End: 10-18-2023 Patient encounter procedure 10/18/2023 10:00 AM EDT Office Visit [facility] [address] [place] [address] Fidel Abbott MD [address] [place] [address] [facility] Start: 09-19-2023 GFR test (Diabetes, CKD 3-4, OR last GFR 15-59) GFR test (Diabetes, CKD 3-4, OR last GFR 15-59) [facility] Start: 09-19-2023 Urine screening for protein Diabetes: Urine Protein Screening [facility] Start: 07-08-2023 Hemoglobin A1c measurement A1C test (Diabetic or Prediabetic) [facility] Start: 07-03-2023 GFR test (Diabetes, CKD 3-4, OR last GFR 15-59) GFR test (Diabetes, CKD 3-4, OR last GFR 15-59) [facility] Start: 06-27-2023 Screening for malignant neoplasm [facility] Start: 06-26-2023 GFR test (Diabetes, CKD 3-4, OR last GFR 15-59) GFR test (Diabetes, CKD 3-4, OR last GFR 15-59) [facility] Start: 06-26-2023 Screening for malignant neoplasm of colon [facility] Start: 06-24-2023 Lipid panel Lipids [facility] Start: 06-23-2023 GFR test (Diabetes, CKD 3-4, OR last GFR 15-59) GFR test (Diabetes, CKD 3-4, OR last GFR 15-59) [facility] Start: 06-04-2023 [facility] Start: 05-20-2023 End: 05-20-2023 Patient encounter procedure 05/20/2023 3:10 PM EST Office Visit [facility] [address] [address] Jonathan Bah DPM [address] [address] [facility] Start: 05-06-2023 End: 05-06-2023 Patient encounter procedure 05/06/2023 10:20 AM EST Office Visit [facility] [address] [facility] [address] [place] [address] Jonathan Bah DPM [address] [address] [facility] Start: 10-27-2022 Influenza vaccination Flu vaccine (Season Ended) [facility] Start: 10-06-2022 Hemoglobin A1c measurement Diabetes: Hemoglobin A1C [facility] Start: 09-25-2022 End: 09-25-2022 Patient encounter procedure 09/25/2022 Office Visit [facility] Start: 07-08-2022 End: 07-08-2022 Patient encounter procedure 07/08/2022 Office Visit [facility] Start: 2022 End: 2022 Admission to same day surgery center 2022 Surgery IP Unit Angeles Nagy MD [address] [facility], [address] [place], [place] [id number] CYSTOSCOPY TRANSURETHROTOMY- DVIU WITH POSS TRANSURETHRAL RESECTION OF BLADDER TUMOR [facility] Comment on above: CYSTOSCOPY TRANSURETHROTOMY- DVIU WITH P OSS TRANSURETHRAL RESECTION OF BLADDER TUMOR Start: 2022 End: 2022 Cystourethroscopy w/internal urethrotomy male CYSTOSCOPY TRANSURETHROTOMY Cauda equina syndrome (HCC) 2022 8:30 AM EDT [facility] Start: 2022 Subsequent hospital visit by physician 2022 Hospital Encounter IP Unit Angeles Nagy MD [address] [place] [address], [address] [place] [address] [facility] Start: 07-01-2022 End: 06-27-2023 Basic metabolic 2000 panel - Serum or Plasma Basic Metabolic Panel Lab Routine Acute kidney injury (HCC) Expected: 07/01/2022, Expires: 06/27/2023 [facility] Work Phone: Comment on above: Expected: 07/01/2022, Expires: 4 Start: 07-01-2022 End: 06-27-2023 CBC W Auto Differential panel - Blood CBC with Auto Differential Lab Routine Acute kidney injury (HCC) Iron deficiency anemia, unspecified iron deficiency anemia type Expected: 07/01/2022, Expires: 06/27/2023 [facility] Work Phone: Comment on above: Expected: 07/01/2022, Expires: 4 Start: 06-22-2022 Annual Wellness Visit (AWV) Annual Wellness Visit (AWV) [facility] Start: 10-27-2021 Influenza vaccination Flu vaccine (#1) [facility] Start: 04-09-2018 Diabetic foot examination Diabetic foot exam [facility] [employer] [facility] Start: 04-09-2018 Hemoglobin A1c measurement A1C test (Diabetic or Prediabetic) [facility] Start: 04-25-2016 Lipid panel Lipids [facility] Start: 04-24-2016 Urine screening for protein [facility] Start: 07-08-2011 Administration of varicella zoster vaccine Zoster (Shingles) Vaccine (1 of 2) [facility] Start: 07-08-2011 Shingles vaccine (1 of 2) Shingles vaccine (1 of 2) [facility] Start: 2006 Screening for malignant neoplasm of colon [facility] Start: 1980 DTaP,Tdap and Td Vaccines (1 - Tdap) DTaP,Tdap and Td Vaccines (1 - Tdap) [facility] Start: 1980 DTaP/Tdap/Td vaccine (1 - Tdap) DTaP/Tdap/Td vaccine (1 - Tdap) [facility] Start: 1980 Urine screening for protein Diabetes: Urine Protein Screening [facility] Start: 07-08-1979 Adult BMI Follow Up Plan Adult BMI Follow Up Plan [facility] Start: 07-08-1979 Glaucoma screening Diabetic retinal exam [facility] Start: 07-08-1979 Hepatitis C screening Hepatitis C screen [facility] Start: 1976 HIV screening HIV screen [facility] Start: 1973 Depression Monitoring Depression Monitoring [facility] Start: 1973 Depression Screening Depression Screening [facility] Start: 07-08-1971 Glaucoma screening Diabetes: Retinopathy Screening [facility] Start: 07-08-1967 Pneumococcal 0-64 years Vaccine (1 - PCV) Pneumococcal 0-64 years Vaccine (1 - PCV) [facility] Start: 01-06-1962 COVID-19 Vaccine (#1) COVID-19 Vaccine (#1) [facility] Start: 1961 Screening for malignant neoplasm of colon [facility] AEROBIC CULTURE AEROBIC CULTURE Lab Routine 10/02/2024 12:38 PM EDT [facility] Work Phone: ANAEROBIC CULTURE ANAEROBIC CULT URE Lab Routine 10/02/2024 12:38 PM EDT [facility] Bacteria identified in Unspecified specimen by Aerobe culture [facility] Bacteria identified in Unspecified specimen by Anaerobe culture [facility] End: 01-16-2025 Basic metabolic 2000 panel - Serum or Plasma Basic Metabolic Panel Lab Routine Stage 3a chronic kidney disease ([facility]) 1 Occurrences starting 01/17/2024 until 01/16/2025 [facility] Work Phone: Comment on above: 1 Occurrences starting 01/17/2024 until 01/16/2025 End: 01-16-2025 CBC panel - Blood by Automated count CBC without diff Lab Routine Stage 3a chronic kidney disease ([facility]) 1 Occurrences starting 01/17/2024 until 01/16/2025 [facility] Comment on above: 1 Occurrences starting 01/17/2024 until 01/16/2025 End: 06-27-2022 CBC W Auto Differential panel - Blood CBC auto differential Lab Routine Daily for 5 Days starting 06/23/2022 until 06/27/2022, 4 completed [facility] Work Phone: Comment on above: Daily for 5 Days starting 06/23/2022 unt il 06/27/2022, 4 completed Culture, Wound Aerob ic Only Culture, Wound Aerobic Only Microbiology [employer] Label Print 06/25/2022 12:20 PM EDT [facility] Phone: End: 06-25-2022 Hemoglobin and Hematocrit Hemoglobin and Hematocrit Lab Routine Post Transfusion Post Transfusion Post Transfustion until discontinued starting 06/24/2022, 1 completed [facility] Phone: Comment on above: Post Transfusion Post Transfusion Post T ransfustion until discontinued starting 06/24/2022, 1 completed End: 01-16-2025 Magnesium [Mass/volume] in Serum or Plasma Magnesium Lab Routine Stage 3a chronic kidney disease ([facility]) 1 Occurrences starting 01/17/2024 until 01/16/2025 [facility] Comment on above: 1 Occurrences starting 01/17/2024 until 01/16/2025 Oxygen therapy [[facility] Data Set] Initiate Oxygen Therapy Protocol Respiratory Care Routine Daily until discontinued starting 06/22/2022 [facility] Phone: Comment on above: Daily until discontinued starting 2022 End: 01-16-2025 Parathyroid Hormone, intact Parathyroid Hormone, intact Lab Routine Stage 3a chronic kidney disease ([facility]) 1 Occurrences starting 01/17/2024 until 01/16/2025 [facility] Comment on above: 1 Occurrences starting 01/17/2024 until 01/16/2025 Patient Education Know your [facility] Work Phone: Patient referral [facility] Work Phone: End: 01-16-2025 Phosphate [Mass/volume] in Serum or Plasma Phosphorus Lab Routine Stage 3a chronic kidney disease ([facility]) 1 Occurrences starting 01/17/2024 until 01/16/2025 [facility] Comment on above: 1 Occurrences starting 01/17/2024 until 01/16/2025 End: 06-24-2022 PREPARE RBC (CROSSMATCH), 1 Units PREPARE RBC (CROSSMATCH), 1 Units Blood Bank Routine Once for 1 Occurrences starting 06/24/2022 until 06/24/2022 [facility] Phone: Comment on above: Once for 1 Occurrences starting 06/25/19 until 06/24/2022 End: 01-16-2025 Protein creat ratio Protein creat ratio Lab Routine Stage 3a chronic kidney disease ([facility]) 1 Occurrences starting 01/17/2024 until 01/16/2025 [facility] Comment on above: 1 Occurrences starting 01/17/2024 until 01/16/2025 End: 06-25-2022 Surgical Pathology Surgical Pathology Lab Routine One Time for 1 Occurrences starting 06/25/2022 until 06/25/2022 [facility] Phone: Comment on above: One Time for 1 Occurrences starting 05/29 until 06/25/2022 Surgical Pathology Surgical Path ology Lab Routine Hyperkalemia Release Upon Ordering for 1 Occurrences starting 06/26/2022 [facility] Phone: Comment on above: Release Upon Ordering for 1 Occurrences starting 06/26/2022 End: 06-25-2022 SURGICAL PATHOLOGY REPORT SURGICAL PATHOLOGY REPORT Lab Routine Once for 1 Occurrences starting 06/25/2022 until 06/25/2022 [facility] Work Phone: Comment on above: Once for 1 Occurrences starting 06/26/19 until 06/25/2022 End: 06-26-2022 SURGICAL PATHOLOGY REPORT SURGICAL PATHOLOGY REPORT Lab Routine Once for 1 Occurrences starting 06/26/2022 until 06/26/2022 [facility] Work Phone: Comment on above: Once for 1 Occurrences starting 06/27/19 until 06/26/2022 End: 01-16-2025 Urinalysis Urinalysis Lab Routine Stage 3a chronic kidney disease ([facility]) 1 Occurrences starting 01/17/2024 until 01/16/2025 [facility] Comment on above: 1 Occurrences starting 01/17/2024 until 01/16/2025 End: 01-16-2025 Vitamin D 25 hydroxy Vitamin D 25 hydroxy Lab Routine Stage 3a chronic kidney disease ([facility]) 1 Occurrences starting 01/17/2024 until 01/16/2025 [facility] Comment on above: 1 Occurrences starting 01/17/2024 until 01/16/2025 Immunizations Immunization Date Immunization Notes Care Provider [facility] 02-11-2023 influenza, injectabl e, quadrivalent, preservative free MD Fidel Abbott Work Phone: [facility] 02-11-2023 influenza virus vaccine, unspecified formulation Fidel Abbott MD Work Phone: [facility] 04-10-2017 influenza virus vaccine, unspecified formulation Jovanny VILLA [facility] Comment on above: Result Comment: 2022: VIS DATE: 11/02/2014 04-10-2017 influenza, injectabl e, quadrivalent, preservative free Fidel Abbott MD Work Phone: [facility] 01-28-2016 Influenza Vaccine, unspecified formulation Fidel Abbott MD Work Phone: [facility] 01-01-2015 influenza virus vaccine, unspecified formulation Jovanny VILLA [facility] 01-01-2015 influenza, seasonal, injectable MD Fidel Abbott Work Phone: [facility] 01-10-2014 influenza virus vaccine, unspecified formulation Jovanny VILLA [facility] Payers Date Payer Category Payer Self-pay [id number] [facility] Managed Care - PPO ANTHEM Member Subscriber Plan / Payer (Effective 2022-Present) Name: Ganga Stinson Relation to Subscriber: Unknown Name: Maricruz Stinsone Date of : 1960 Address: [place] [address] Payer ID: [id number] (NAIC) Type: Not on file Address: [place] [id number] 2021 [facility] [id number] 2021 Unknown BCBS BCBS xxxxxx [id number] 2021-Present [phone] [address] [place] [address] [id number]. [id number] 2015 Unknown [id number] 2006 Medicare [id number]. [id number]. [id number] 1960 Unknown [id number] 2.16.840.1.812356.3.579.2. 593 1961 Unknown [id number] 2.16.840.1.875608.3.579.2. 593 1961 Unknown [id number] 2.16.840.1.998902.3.579.2. 593 1961 Unknown [id number] 2.16.840.1.216036.3.579.2. 173 1961 Unknown [id number] 2.16.840.1.521098.3.579.2. 173 1961 Unknown [id number] 2.16.840.1.920943.3.579.2. 173 1961 Unknown [id number] 2.16.840.1.260185.3.579.2. 173 1961 Unknown [id number] 2.16.840.1.326114.3.579.2. 173 1961 Unknown [id number] 2.16.840.1.481872.3.579.2. 173 1961 Unknown [id number] 2.16.840.1.668259.3.579.2. 173 1961 Unknown [id number] 2.16.840.1.151715.3.579.2. 173 1961 Unknown [id number] 2.16.840.1.125145.3.579.2. 1286 1961 Unknown [id number] 2.16.840.1.593432.3.579.2. 1286 1961 Unknown [id number] 2.16.840.1.849987.3.579.2. 1259 1961 Unknown [id number] 2.16.840.1.029795.3.579.2. 1259 1961 Unknown [id number] 2.16.840.1.589532.3.579.2. 1259 1961 Unknown [id number] 2.16.840.1.553052.3.579.2. 727 1961 Unknown [id number] 2.16.840.1.317035.3.579.2. 727 1961 Unknown [id number] 2.840.1.858242.3.579.2. 727 1959 Medicare [id number] 1959 Unknown [id number] 1959 Unknown [id number] Unknown [id number] 2.16840.1.815383.3.579.2. 531 Unknown [id number] 2.16840.1.918592.3.579.2. 531 Unknown [id number] 2.16840.1.045532.3.579.2. 531 Unknown [id number] 2.16840.1.682831.3.579.2. 531 Unknown [id number] 2.840.1.299620.3.579.2. 531 Social History Date Type Detail Facility Start: 01-27-2022 End: 02-23-2023 Tobacco smoking status NHIS Never smoked tobacco (finding) [facility] Start: 1960 Sex Assigned At Male F [facility] Start: 06-22-2022 End: 02-23-2023 Tobacco use and exposure Smokeless tobacco non-user [facility] Phone: Start: 06-22-2022 End: 07-14-2022 Alcohol intake Current non-drinker of alcohol (finding) [facility] Work Phone: Start: 1960 Sex Assigned At Not on file B [facility] [employer] Phone: Start: 06-12-2022 End: 06-22-2022 Exposure to SARS-CoV-2 (event) Not sure [facility] Start: 06-23-2022 History SDOH Alcohol Frequency 1 [facility] Phone: Start: 06-23-2022 History SDOH Alcohol Std Drinks 0 [facility] Work Phone: Tobacco smoking status Never [facility] Start: 04-29-2023 End: 10-17-2023 Sex Assigned At Male [facility] Start: 04-29-2023 End: 07-31-2024 Alcohol intake Lifetime non-drinker (finding) [facility] Start: 04-29-2023 End: 10-17-2023 History of Social function [facility] Start: 11-01-2014 End: 08-30-2024 Sex Male (finding) [facility] Do you belong to any clubs or organizations such as shinto groups, unions, fraternal or athletic groups, or [...] 06-04-2023 Wound debridement Collagen wound matrix dressing ()[id number] FDA Start: 06-04-2023 Wound debridement Collagen wound matrix dressing ()[id number] FDA Start: 06-04-2023 Wound debridement EPIFIX MESH [...] 06-04-2023 Amputation, toe Collagen wound matrix dressing ()[id number] FDA Start: 02-10-2023 Graft Subst Resorbable Mini 5cc [id number] Start: 12-25-2016 Comment on above: Description: tobramy icin recostituted with 10ml normal saline ref # [id number] exp 07/27/2018 lot # [id number] Goals Date Patient Goal Desired Activity /State Functional Status Date Assessment Result Facility 11-09-2022 Functional Status N/A [facility] Clinical Notes 07-29-2021 to 08-15-2024 Note Date & Type Note Facility 08-15-2024 Evaluation note Diagnosis Onset Date Resolution Diabetes mellitus due to underlying condition with diabetic neuropathy, wit acute August 15, 2024 10:28am Pressure injury of left ischium, stage 4 acute August 15, 2024 10:28am Pressure injury of right ischium, stage 4 acute August 15, 2024 10:28am Stage IV pressure ulcer of sacral region acute August 15, 2024 10:28am Cauda equina spinal cord injury chronic August 15, 2024 10:28am Bilateral lower extremity edema acute August 30, 2024 11:16am Open wound of both legs with complication acute August 30, 2024 11:16am [facility] Work Phone: 1(330) 676-870005-20-2025 Evaluation note* Diagnosis Onset Date Resolution Status Admit Date Diabetes mellitus due to underlying condition with diabetic neuropathy, wit acute July h2024 10:28am Pressure injury of left isch ium, stage 4 acute August 15, 2024 1 0:28am Pressure injury of right ischium, stage 4 acute August 15, 2024 10:28am Stage IV pressure ulcer of sacral region acute August 15, 2024 1 0:28am Cauda equina spinal cord injury [facility] August 15, 2024 10:28am [facility] Work Phone: 1(647) 640-937005-20-2025 Evaluation note* Diagnosis Onset Date Resolution Status Admit Date Diabetes mellitus due to underlying condition with diabetic neuropathy, wit acute July h2024 10:28am Pressure injury of left isch ium, stage 4 acute August 15, 2024 1 0:28am Pressure injury of right ischium, stage 4 acute August 15, 2024 10:28am Stage IV pressure ulcer of sacral region acute August 15, 2024 1 0:28am Cauda equina spinal cord injury [facility] August 15, 2024 10:28am Bilateral lower extremity edema acut e August 30, 2024 11:16am Open wound of both legs with complication acute August 30, 2024 1 1:16am Diabetes mellitus due to underlying condition with diabetic neuropathy, wit acute September 10:30am Pressure injury of left isch ium, stage 4 acute October 02, 2024 1 0:30am Cauda equina spinal cord injury [facility] October 02, 2024 10:30am [facility] Work Phone: 1(549) 440-869705-05-2025 History of Present illness Narrative* Fidel Abbott MD - 07/31/2024 11:20 AM EDTAssociated Problem(s): Class 2 severe obesity due to excess calories with serious comorbidity and body mass index (BMI) of 36.0 to 36.9 in adult ([facility]) Weight loss indicated. * Fidel Abbott MD - 07/31/2024 11:18 AM EDTAssociated Problem(s): Type 2 diabetes mellitus with hyperglycemia, without long-term current use of insulin (CMS/HCC) Reports BS stable and due for A1C. Stick to ADA diet and limit carbs. * Fidel Abbott MD - 07/31/2024 11:18 AM EDTAssociated Problem(s): Major depressive disorder, recurrent episode, mild (HCC) (CMS/HCC) Mood controlled with celexa and continue. * Fidel Abbott MD - 07/31/2024 11:18 AM EDTAssociated Problem(s): Incontinence overflow, urine Symptoms tolerable with medication and continue. * Fidel Abbott MD - 07/31/2024 11:18 AM EDTAssociated Problem(s): Chronic superficial gastritis Symptoms controlled with medication and continue. * Fidel Abbott MD - 07/31/2024 11:18 AM EDTAssociated Problem(s): Benign hypertension (CMS/HCC) BP controlled and monitor PRN. * Fidel Abbott MD - 07/31/2024 10:45 AM EDT Images from the original note [...] or burning and not waking up with sympto ms. Review of Systems Constitutional: Negative for fatigue. [...] Lipid panel PSA TSH documented in this encounterShriners Hospitals for [id number] Miscellaneous Notes* Telephone Encounter - Fatemeh Ant - 04/17/2024 1:56 PM EST Pt called to reschedule new pt appt due to lack of transportation. I informed him that we have no availability in [place] until [facility]'s July schedule opens up. He stated he will call back the first weekof April to reschedule. [facility] Telephone encounter Note* Telephone Encounter - Fatemeh Ant - 04/17/2024 1:56 PM EST Pt called to reschedule new pt appt due to lack of transportation. I informed him that we have no availability in [place] until [facility]'s July schedule opens up. He stated he will call back the first weekof April to reschedule. [facility]01-17-2025 Miscellaneous Notes* Telephone Encounter - Mary Conner CMA - 04/14/2024 3:23 PM EST Left message for patient to call the office back to confirm upcoming appointment 04/20 at 1:[address] Valdivia in [place]. Also stated that patient needs to get labs done prior to upcoming appointment documented in this encounterCl[facility]01-17-2025 Telephone encounter Note* Telephone Encounter - Mary Conner CMA - 04/14/2024 3:23 PM EST Left message for patient to call the office back to confirm upcoming appointment 04/20 at 1:[address] Valdivia in [place]. Also stated that patient needs to get labs done prior to upcoming appointment [facility]01-09-20[facility] Miscellaneous Notes* Telephone Encounter - Mary Conner CMA - 04/06/2024 2:38 PM EST Left message for patient to call the office back to confirm upcoming appointment 04/13 at 2:[address] Valdivia in [place]. Also stated that patient needs to get labs done prior to upcoming appointment documented in [facility] encounterCl[facility]01-[facility]25 Telephone encounter Note* Telephone Encounter - Mary Conner CMA - 04/06/2024 2:38 PM EST Left message for patient to call the office back to confirm upcoming appointment 04/13 at 2:[address] Valdivia in [place]. Also stated that patient needs to get labs done prior to upcoming appointment [facility]12[facility] Progress note Author Cathy Brar [facility] Note Date/Time March 14, 2024 11:23am [facility] [address] [place] [address] Wound Center Provider Note Signed Patient: Ganga Stinson MR#: [id number] : 1960 Acct:[id number] Age/Sex: 63 / M Copies to: MD [...] start?: 10 plus years Mode of Arrival/ Service Writer: Personal vehicle and Family Assistive Device Used [...] Itching Wound/Ulcer Sacrum: Bed Appearance: Beefy Red, [place], Rolled Edges and Yellow Percent of Wound [...] Ischium: Bed Appearance: Beefy Red, Bone Palpable, [place] and Yellow Percent of Wound [...] Ischium: Bed Appearance: Beefy Red, Bone Palpable, [place], Rolled Edges and Yellow Percent of Wound Bed Granulated/Red: 90 Percent of Devitalized: 10 Length (cm): 0.5 Width (cm): 0.5 Depth (cm): 2.5 CM Sq: 0.250 Tunneling Position: 10:00 Tunneling Depth: 4 Surrounding Tissue Appearance: [place] and Macerated Surrounding Tissue Temp: [...] underlying condition with diabetic neuropathy,unspecified; 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 Plan Continue with [...] Orders: Dictated By: Cathy Brar MD DD/ 1121 Signed By: <Electronically signed by MD Cathy Brar> 03/14/24 1123 [facility] Work Phone: 1(989) 296-311412-17-2024 Evaluation note* Diagnosis Onset Date Resolution Status Admit Date Diabetes mellitus due to underlying condition with diabetic neuropathy, wit acute Decembe r 2023 10:42am Pressure injury of left ischium, stage 4 acute March 14, 2024 10:42am Pressure injury of right ischium, stage 4 acute March 14, 2024 10:42am Stage IV pressure ulcer of sacral region acute March 14 10:42am Cauda equina spinal cord injury chronic March 14 10:42am [facility] Work Phone: 1([phone]) 436-283412-17-2024 [place] [address] Wound Center Provider Note Signed Patient: Ganga Stinson MR#: [id number] : 1960 Acct:[id number] Age/Sex: 63 / M Copies to: MD [...] start?: 10 plus years Mode of Arrival/ Service Writer: Personal vehicle and Family Assistive Device Used [...] Itching Wound/Ulcer Sacrum: Bed Appearance: Beefy Red, [place], Rolled Edges and Yellow Percent of Wound [...] Ischium: Bed Appearance: Beefy Red, Bone Palpable, [place] and Yellow Percent of Wound [...] Ischium: Bed Appearance: Beefy Red, Bone Palpable, [place], Rolled Edges and Yellow Percent of Wound Bed Granulated/Red: 90 Percent of Devitalized: 10 Length (cm): 0.5 Width (cm): 0.5 Depth (cm): 2.5 CM Sq: 0.250 Tunneling Position: 10:00 Tunneling Depth: 4 Surrounding Tissue Appearance: [place] and Macerated Surrounding Tissue Temp: [...] underlying condition with diabetic neuropathy,unspecified; Z79.4 - [facility] (current) use of insulin Plan Continue with [...] MD DD/ 112 Signed By: 03/14/24 1123 [facility]11-12-2024 Progress note Author Cathy Brar [facility] Note Date/Time February 08, 2024 11:44am [facility] [address] [place] [address] Wound Center Provider Note Signed Patient: Ganga Stinson MR#: [id number] : 1960 Acct:[id number] Age/Sex: 63 / M Copies to: MD [...] start?: 10 plus years Mode of Arrival/ Service Writer: Personal vehicle and Family Assistive Device Used [...] Itching Wound/Ulcer Sacrum: Bed Appearance: Beefy Red, [place], Rolled Edges and Yellow Percent of Wound [...] Jelly Right Ischium: Bed Appearance: Beefy Red, [place] and Yellow Percent of Wound [...] Odor Left Ischium: Bed Appearance: Beefy Red, [place], Rolled Edges and Yellow Percent of Wound [...] underlying condition with diabetic neuropathy,unspecified; 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 Podiatry following the patient's foot ulcers. Follow-up in 1 month See Instructions for Orders See Instructions for Orders See Wound Discharge Instructions for Orders: Dictated By: Cathy Brar MD DD/ 1141 Signed By: <Electronically signed by MD Cathy Brar> 02/08/24 114 [facility] Work Phone: 1(220) 471-751811-12-2024 Evaluation note* Diagnosis Onset Date Resolution Status Admit Date Diabetes mellitus due to underlying condition with diabetic neuropathy, wit acute Novembe r 2023 10:48am Pressure injury of left ischium, stage 4 acute February 08, 2024 10:48am Pressure injury of right ischium, stage 4 acute February 08, 2024 10:48am Stage IV pressure ulcer of sacral region acute February 07 10:48am Cauda equina spinal cord injury chronic February 07 10:48am [facility] Work Phone: 1(159) 983-290811-12-2024 [place] [address] Wound Center Provider Note Signed Patient: Ganga Stinson MR#: [id number] : 1960 Acct:[id number] Age/Sex: 63 / M Copies to: MD [...] start?: 10 plus years Mode of Arrival/ Service Writer: Personal vehicle and Family Assistive Device Used [...] Itching Wound/Ulcer Sacrum: Bed Appearance: Beefy Red, [place], Rolled Edges and Yellow Percent of Wound [...] Jelly Right Ischium: Bed Appearance: Beefy Red, [place] and Yellow Percent of Wound [...] Odor Left Ischium: Bed Appearance: Beefy Red, [place], Rolled Edges and Yellow Percent of Wound [...] underlying condition with diabetic neuropathy,unspecified; 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 Podiatry following the patient's foot ulcers. Follow-up in 1 month See Instructions for Orders See Instructions for Orders See Wound Discharge Instructions for Orders: Dictated By: Cathy Brar MD DD/ 1141 Signed By: 02/08/24 1144 [facility]10-24-2024 History of Present illness Narrative * [...] and use hydroxyzine PRN. documented in this encounterShriners Hospitals for [id number] Evaluation note* Diagnosis Stage 3a chronic kidney disease ([facility]-H[facility])- Primary documented in this encounter [facility]10-16-2024 Miscellaneous Notes* Telephone Encounter - Fatemeh Cain - 01/12/2024 9:03 AM EDT LM to schedule new pt appt. documented in this encounterCl[facility]10-16-2024 Telephone encounter Note* Telephone Encounter - Fatemeh Cain - 01/12/2024 9:03 AM EDT SHAMEKA to schedule new pt appt. [facility]10-08-2024 Progress note Author Cathy Brar [facility] Note Date/Time January 04, 2024 11 :52am [facility] [address] [place] [address] Wound Center Provider Note Signed Patient: Ganga Stinson MR#: [id number] : 1960 Acct:[id number] Age/Sex: 63 / M Copies to: MD [...] start?: 10 plus years Mode of Arrival/ Service Writer: Personal vehicle and Family Assistive Device Used [...] Itching Wound/Ulcer Sacrum: Bed Appearance: Beefy Red, [place] and Yellow Percent of Wound Bed Granulated/Red: 90 Percent of Devitalized: 10 Length (cm): 2.9 Width (cm): 1.5 Depth (cm): 3 CM Sq: 4.350 Undermining Position: 360 Undermining Depth: 3.5 Surrounding Tissue Appearance: Bright Red and Rash/Irritation Surrounding Tissue Temp: Warm Drainage Amount: Large Drainage Description: Serosanguineous Drainage Odor: No Odor Right Ischium: Bed Appearance: Beefy Red, [place] and Yellow Percent of Wound [...] Odor Left Ischium: Bed Appearance: Beefy Red, [place], Rolled Edges and Yellow Percent of Wound Bed Granulated/Red: 90 Percent of Devitalized: 10 Length (cm): 0.7 Width (cm): 0.8 Depth (cm): 2.9 CM Sq: 0.560 Tunneling Position: 10:00 Tunneling Depth: 3 Surrounding Tissue Appearance: [place] Surrounding Tissue Temp: Warm Drainage [...] underlying condition with diabetic neuropathy,unspecified; 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 Podiatry following the patient's foot ulcers. Follow-up in 1 month See Instructions for Orders See Instructions for Orders See Wound Discharge Instructions for Orders: Dictated By: Cathy Brar MD DD/ 1050 Signed By: <Electronically signed by MD Cathy Brar> 01/04/24 1052 [facility] Work Phone: 1(533) 485-369210-08-2024 [place] [address] Wound Center Provider Note Signed Patient: Ganga Stinson MR#: [id number] : 1960 Acct:[id number] Age/Sex: 63 / M Copies to: MD [...] start?: 10 plus years Mode of Arrival/ Service Writer: Personal vehicle and Family Assistive Device Used [...] Itching Wound/Ulcer Sacrum: Bed Appearance: Beefy Red, [place] and Yellow Percent of Wound Bed Granulated/Red: 90 Percent of Devitalized: 10 Length (cm): 2.9 Width (cm): 1.5 Depth (cm): 3 CM Sq: 4.350 Undermining Position: 360 Undermining Depth: 3.5 Surrounding Tissue Appearance: Bright Red and Rash/Irritation Surrounding Tissue Temp: Warm Drainage Amount: Large Drainage Description: Serosanguineous Drainage Odor: No Odor Right Ischium: Bed Appearance: Beefy Red, [place] and Yellow Percent of Wound [...] Odor Left Ischium: Bed Appearance: Beefy Red, [place], Rolled Edges and Yellow Percent of Wound Bed Granulated/Red: 90 Percent of Devitalized: 10 Length (cm): 0.7 Width (cm): 0.8 Depth (cm): 2.9 CM Sq: 0.560 Tunneling Position: 10:00 Tunneling Depth: 3 Surrounding Tissue Appearance: [place] Surrounding Tissue Temp: Warm Drainage [...] underlying condition with diabetic neuropathy,unspecified; 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 Podiatry following the patient's foot ulcers. Follow-up in 1 month See Instructions for Orders See Instructions for Orders See Wound Discharge Instructions for Orders: Dictated By: Cathy Brar MD DD/ 1050 Signed By: 01/04/24 1052 [facility]08-22-2024 History of Present illness Narrative * [...] panel CBC and differential documented in this encounterShriners Hospitals for [id number] Progress note Author Cathy Brar [facility] Note Date/Time November 09, 2023 1: 07pm [facility] [address] [place] [address] Wound Center Provider Note Signed Patient: Ganga Stinson MR#: [id number] : 1960 Acct:[id number] Age/Sex: 63 / M Copies to: MD [...] his foot ulcers and [facility]. Currently, home [...] start?: 10 plus years Mode of Arrival/ Service Writer: Personal vehicle and Family Assistive Device Used [...] Sacrum: Bed Appearance: Beefy Red, Bone Palpable, [place] and Yellow Percent of Wound Bed Granulated/Red: 90 Percent of Devitalized: 10 Length (cm): 2.5 Width (cm): 2 Depth (cm): 3 CM Sq: 5.000 Undermining Position: 360 Undermining Depth: 4 Surrounding Tissue Appearance: Bright Red and Rash/Irritation Surrounding Tissue Temp: Warm Drainage Amount: Large Drainage Description: Serosanguineous Drainage Odor: No Odor Right Ischium: Bed Appearance: Beefy Red, [place] and Yellow Percent of Wound [...] Odor Left Ischium: Bed Appearance: Beefy Red, [place], Rolled Edges and Yellow Percent of Wound Bed Granulated/Red: 90 Percent of Devitalized: 10 Length (cm): 0.7 Width (cm): 0.8 Depth (cm): 2.3 CM Sq: 0.560 Tunneling Position: 10:00 Tunneling Depth: 3 Surrounding Tissue Appearance: [place] Surrounding Tissue Temp: Warm Drainage [...] underlying condition with diabetic neuropathy,unspecified; 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 Currently, home [...] start?: 10 plus years Mode of Arrival/ Service Writer: Personal vehicle and Family Assistive Device Used Today: Wheelchair Lives with:: Spouse Appetite Description: Within Normal Limits Smoking Status: Never smoker Constitutional Constitutional: Denies fever(s) Integumentary/Breasts Skin/Breast: Reports wounds [facility] Medical History Acute kidney failure Cauda equina [...] Sacrum: Bed Appearance: Beefy Red, Bone Palpable, [place] and Yellow Percent of Wound Bed Granulated/Red: 90 Percent of Devitalized: 10 Length (cm): 2.5 Width (cm): 2 Depth (cm): 3 CM Sq: 5.000 Undermining Position: 360 Undermining Depth: 4 Surrounding Tissue Appearance: Bright Red and Rash/Irritation Surrounding Tissue Temp: Warm Drainage Amount: Large Drainage Description: Serosanguineous Drainage Odor: No Odor Right Ischium: Bed Appearance: Beefy Red, [place] and Yellow Percent of Wound [...] Odor Left Ischium: Bed Appearance: Beefy Red, [place], Rolled Edges and Yellow Percent of Wound Bed Granulated/Red: 90 Percent of Devitalized: 10 Length (cm): 0.7 Width (cm): 0.8 Depth (cm): 2.3 CM Sq: 0.560 Tunneling Position: 10:00 Tunneling Depth: 3 Surrounding Tissue Appearance: [place] Surrounding Tissue Temp: Warm Drainage [...] underlying condition with diabetic neuropathy,unspecified; Z79.4 - [facility] (current) use of insulin Plan Continue with [...] Orders: Dictated By: Cathy Brar MD DD/ 120 Signed By: 11/09/23 1207 [facility]07-09-2024 Progress note Author Cathy Brar [facility] Note Date/Time October 05, 2023 12:[address] [facility] [address] [place] [address] Wound Center Provider Note Signed Patient: Ganga Stinson MR#: [id number] : 1960 Acct:[id number] Age/Sex: 63 / M Copies to: MD [...] is Dr. Abbott. Patient also sees a application software engineer. Apparently he was to start on a new medication and will need to be on blood thinners because of the medication. Subjective Pain Buttock: Pain Intensity: 6 Wound/Ulcer History When did wound start?: 10 plus years Mode of Arrival/ Service Writer: Personal vehicle and Family Assistive Device Used [...] Itching Wound/Ulcer Sacrum: Bed Appearance: Beefy Red, [place] and Yellow Percent of Wound Bed Granulated/Red: 90 Percent of Devitalized: 10 Length (cm): 2.6 Width (cm): 1.5 Depth (cm): 2.9 CM Sq: 3.900 Undermining Position: 360 (deepest at 9) Undermining Depth: 4.5 Surrounding Tissue Appearance: Hyperpigmented Surrounding Tissue Temp: Warm Drainage Amount: Large Drainage Description: Serosanguineous Drainage Odor: No Odor Right Ischium: Bed Appearance: Beefy Red, Bone Palpable, [place] and Yellow Percent of Wound Bed Granulated/Red: 90 Percent of Devitalized: 10 Length (cm): 5 Width (cm): 7 Depth (cm): 3.5 CM Sq: 35.000 Undermining Position: 8-11 (deepest at 9) Undermining Depth: 3.7 Surrounding Tissue Appearance: Hyperpigmented Surrounding Tissue Temp: Warm Drainage Amount: Large Drainage Description: Serosanguineous Left Ischium: Bed Appearance: Beefy Red, [place] and Yellow Percent of Wound [...] underlying condition with diabetic neuropathy,unspecified; 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 Okay to start on new medications prescribed by application software engineer. Patient and were told to monitor for evidence of bleeding from the wounds. Follow-up in about 1 month. See Instructions for Orders See Instructions for Orders See Wound Discharge Instructions for Orders: Dictated By: Cathy Brar MD DD/ 1115 Signed By: <Electronically signed by MD Cathy Brar> 10/05/23 1120 [facility] Work Phone: 1(361) 491-389607-09-2024 [place] [address] Wound Center Provider Note Signed Patient: Ganga Stinson MR#: M [id number] : 1960 Acct:[id number] Age/Sex: 63 / M Copies to: MD [...] is Dr. Abbott. Patient also sees a application software engineer. Apparently he was to start on a new medication and will need to be on blood thinners because of the medication. Subjective Pain Buttock: Pain Intensity: 6 Wound/Ulcer History When did wound start?: 10 plus years Mode of Arrival/ Service Writer: Personal vehicle and Family Assistive Device Used [...] Itching Wound/Ulcer Sacrum: Bed Appearance: Beefy Red, [place] and Yellow Percent of Wound Bed Granulated/Red: 90 Percent of Devitalized: 10 Length (cm): 2.6 Width (cm): 1.5 Depth (cm): 2.9 CM Sq: 3.900 Undermining Position: 360 (deepest at 9) Undermining Depth: 4.5 Surrounding Tissue Appearance: Hyperpigmented Surrounding Tissue Temp: Warm Drainage Amount: Large Drainage Description: Serosanguineous Drainage Odor: No Odor Right Ischium: Bed Appearance: Beefy Red, Bone Palpable, [place] and Yellow Percent of Wound Bed Granulated/Red: 90 Percent of Devitalized: 10 Length (cm): 5 Width (cm): 7 Depth (cm): 3.5 CM Sq: 35.000 Undermining Position: 8-11 (deepest at 9) Undermining Depth: 3.7 Surrounding Tissue Appearance: Hyperpigmented Surrounding Tissue Temp: Warm Drainage Amount: Large Drainage Description: Serosanguineous Left Ischium: Bed Appearance: Beefy Red, [place] and Yellow Percent of Wound [...] underlying condition with diabetic neuropathy,unspecified; 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 Okay to start on new medications prescribed by application software engineer. Patient and were told to monitor for evidence of bleeding from the wounds. Follow-up in about 1 month. See Instructions for Orders See Instructions for Orders See Wound Discharge Instructions for Orders: Dictated By: Cathy Brar MD DD/ 1115 Signed By: 10/05/23 1120 [facility]02-15-2024 Telephone encounter Note* Telephone Encounter - Sandhya Velasquez RN - 05/13/2023 3:00 PM EST Patient called to inquire about the antibiotic that was supposed to be sent after his 05/06 visit. Can you resend? Thank you! [facility] [id number] Miscellaneous Notes* Telephone Encounter - Sandhya Velasquez RN - 05/13/2023 3:00 PM EST Patient called to inquire about the antibiotic that was supposed to be sent after his 05/06 visit. Can you resend? Thank you! documented in this encounterNOTexas County Memorial [id number] History of Present illness Narrative* Jonathan Bah DPM - 05/06/2023 10:20 AM EST Patient: Ganga Evans Ruben : 1960 PCP: Fidel Abbott MD SUBJECTIVE [...] unable to go to wound care at [facility] Patient also has Integra wound graft [...] or home health. Patient currently going at [facility] for decubitus ulcer Patient still awaits MRI approval as had to be resubmitted due to need for new x-ray on previous visit in awaits MRI at [facility] . Referral has been sent to [facility] wound center with attempt to follow-up for [...] region for possible osteomyelitis to fibula at [facility] ASSESSMENT 12 weeks s/p left 4th [...] oral antibiotics Patient to follow up with [facility] for decubitus ulcer and instructions given to contact [facility] for follow-up.. Skin flap area [...] MRI Jonathan Bah DPM documented in this encounterShriners Hospitals for [id number] Progress note Author Cathy Brar [facility] May 04, 2023 1:07pm Note Date/Time May 04, 2023 1 2:48pm [facility] [address] [place] [address] Wound Center Provider Note Signed Patient: Ganga Stinson MR#: M [id number] : 1960 Acct:[id number] Age/Sex: 62 / M Copies to: MD [...] did wound start?: years Mode of Arrival/ Service Writer: Personal vehicle Assistive Device Used Today: Wheelchair [...] Itching Wound/Ulcer Right Lateral Ankle: Bed Appearance: [place] and Yellow Percent of Wound [...] No Odor Right Medial Foot: Bed Appearance: [place] and Yellow Percent of Wound Bed Granulated/Red: 50 Percent of Devitalized: 50 Length (cm): 1.0 Width (cm): 1.0 Depth (cm): 0.3 CM Sq: 1.000 Surrounding Tissue Appearance: Hyperpigmented Surrounding Tissue Temp: Warm Drainage Amount: Moderate Drainage Description: Serosanguineous Drainage Odor: No Odor Sacrum: Bed Appearance: Beefy Red, [place] and Yellow Percent of Wound Bed Granulated/Red: 90 Percent of Devitalized: 10 Length (cm): 2.9 Width (cm): 1.5 Depth (cm): 2.5 CM Sq: 4.350 Undermining Position: 360 deepest at 9:00 Undermining Depth: 4.0 Surrounding Tissue Appearance: Hyperpigmented, Macerated and Callous Surrounding Tissue Temp: Warm Drainage Amount: Large Drainage Description: Serosanguineous Drainage Odor: No Odor Right Ischium: Bed Appearance: Beefy Red, [place] and Yellow Percent of Wound Bed Granulated/Red: 90 Percent of Devitalized: 10 Length (cm): 5.3 Width (cm): 7.5 Depth (cm): 4.0 CM Sq: 39.750 Surrounding Tissue Appearance: [place], Macerated and Callous Surrounding Tissue Temp: Warm Drainage Amount: Large Drainage Description: Serosanguineous Drainage Odor: No Odor Left Ischium: Bed Appearance: Beefy Red and [place] Percent of Wound Bed Granulated/Red: [...] underlying condition with diabetic neuropathy,unspecified; Z79.4 - CHCF (current) use of insulin (5) Foot ulcer [...] signed by MD Cathy Brar> 05/04/23 1307 [facility] Work Phone: [phone]) 592-130808-14-2023 Hospital Discharge instructions Patient Education 11/09/2022 14:08:53 [...] Follow these instructions at home: Medicines Take xtdt-[id number]-gcutwas and prescription medicines only as told by [...] provider. Document Revised: 12/04/2020 Document Reviewed: 12/04/2020 [employer] Patient Education 2022 Intelligent Mobile Support. Follow Up Care 10/13/2022 11:18:02 With:ALLEN NAZARIO, Jovanny Christie, URL Address: [facility] [address], [place] [address]- [phone] When: Unknown Comments:sched cysto [facility] Titi 03-31-2023 History of Present illness [...] 06/26/2022 12:01 PM EDT Physical Therapy Facility/Department: [facility] Daily Treatment Note NAME: Ganga [...] 06/26/2022 12:00 PM EDT Occupational Therapy Facility/Department: [facility] Daily Treatment Note NAME: Ganga [...] AM EDT [facility] via cart with RN. Bedside [...] Crockett RN - 06/26/2022 3:00 AM EDT Cutter Machine Tender at bedside for wound dressing change- pt incontinent of bowels. See flow sheet for details. * Panchito Crockett RN - 06/26/2022 1:30 AM EDT Pt incontinent of stool. Cutter Machine Tender at bedside for wound change dressing per order- see flow sheet for details. * Panchito Crockett RN - 06/26/2022 12:50 AM EDT Patient at bedside for reassessment and vitals- see flow sheet for details. Pt remains alert and oriented c4-calm and cooperative. GoLYTELY at bedside and movie writer encourages patient to consume fluid- pt validates understanding. Patient currently denying pain and discomfort. Denying any additional needs, call light placed within reach, bed in lowest position. Cutter Machine Tender encourages patient to call out for assistance. Will continue to monitor. * Panchito Crockett RN - 06/26/2022 12:45 AM EDT Cutter Machine Tender at bedside- pt incontinent of stool- wound dressing changed per order. See flow sheet. * Panchito Crockett RN - 06/25/2022 10:05 PM EDT Cutter Machine Tender at bedside to for wound dressing change per order. See MAR for details. * Eloise Lopez PTA - 06/25/2022 3:56 PM EDT Physical Therapy Facility/Department: [facility] Daily Treatment Note NAME: Ganga [...] never been a smoker. He saw a clinical material handler at [facility] 2 years ago in 2020. At that [...] He had blood work done with Dr. aNgy's office and was called to come to [...] He follows with wound clinic at [facility]. Mr. Stinson also denied any current [...] Paralysis of both lower limbs (HCC) Paraplegia ([facility]) Type II or unspecified type diabetes mellitus without mention of complication, not stated as uncontrolled Unspecified sleep apnea CURRENT ALLERGIES: Vancomycin REVIEW OF SYSTEMS: 14 systems were reviewed. Pertinent positives and negatives as above, all else negative. Past Surgical History: Procedure Laterality Date APPENDECTOMY BACK SURGERY X2 OTHER SURGICAL HISTORY Right 04/10/2017 I&D rt foot/leg wounds CO I&D BELOW FASCIA FOOT 1 BURSAL SPACE Right 12/25/2016 FOOT DEBRIDEMENT INCISION AND DRAINAGE, 5TH DIGIT, PARTIAL AMB. PLACEMENT OF ANTIBOTIC BEADS performed by Gabriel Haile DPM at [facility] OR CO I&D BELOW FASCIA FOOT 1 BURSAL SPACE Right 04/10/2017 RIGHT ANKLE AND RIGHT HEEL DEBRIDEMENT INCISION AND DRAINAGE WITH CULTURES SENT performed by William Jimenez MD at [facility] OR CO OFFICE/OUTPT VISIT,PROCEDURE ONLY Right 06/14/2017 FOOT DEBRIDEMENT INCISION AND DRAINAGE-ANKLE INCLUDING BONE BIOPSY performed by Ro Husseint [facility] OR TOE AMPUTATION Right 12/25/2016 right fifth toe amputation with I&D, ATB beads per Dr. Haile VENA CAVA FILTER PLACEMENT waverly filter Social History: Social History Tobacco Use [...] Pressure injury of right ankle, stage 4 ([facility]) 06/24/2022 Open wound of right ankle 12/30/2016 Mixed hyperlipidemia 04/25/2015 Hyponatremia 04/25/2015 Diabetes mellitus ([facility]) 07/02/2011 Paraplegia ([facility]) 03/12/2011 MSSA (methicillin susceptible Staphylococcus aureus) infection 05/28/2017 Bacterial infection 02/17/2017 Enterococcus faecalis infection 12/28/2016 Skin ulcer of right heel with fat layer exposed ([facility]) 09/02/2016 Skin ulcer of right 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 ([facility]) 04/25/2015 Decubitus ulcer of coccygeal region 07/19/2013 Cauda equina syndrome ([facility]) 12/09/2011 Open wound of knee, leg (except thigh), and ankle, complicated 02/25/2011 Acute kidney injury superimposed on CKD ([facility]) 06/23/2022 Abnormal EKG 06/23/2022 Neurogenic bladder 06/23/2022 Hyperkalemia 06/22/2022 Osteomyelitis of ankle or foot, right, acute ([facility]) Decubitus ulcer of coccygeal region, stage 4 ([facility]) 04/09/2017 Cellulitis 04/08/2017 Morbid obesity due to excess calories ([facility]) 01/01/2017 Acute on chronic renal failure ([facility]) 12/30/2016 Osteomyelitis of right foot ([facility]) Hypertension Depression PLAN: Pre-Op Clearance: Pre-Operative Risk assessment using 2014 ACC/AHA guidelines Emergent procedure No Active Cardiac Condition No (decompensated HF, Arrhythmia, NV <3 weeks, severe valve disease) Risk Level [...] with the plan. Sincerely, Zoila Villafuerte PA-C [facility] Food Photographer [address] [place], [place] [id number] , I believe that the risk of [...] on CKD (HCC) 06/23/2022 Cauda equina syndrome ([facility]) 2003 Depression Hypertension MRSA (methicillin resistant staph aureus) culture positive 04/10/2017 right ankle Open wound of right ankle 12/30/2016 Paralysis of both lower limbs ([facility]) Paraplegia ([facility]) Type II or unspecified type diabetes mellitus without mention of complication, not stated as uncontrolled Unspecified sleep apnea Past Surgical History: Procedure Laterality Date APPENDECTOMY BACK SURGERY X2 OTHER SURGICAL HISTORY Right 04/10/2017 I&D rt foot/leg wounds CO I&D BELOW FASCIA FOOT 1 BURSAL SPACE Right 12/25/2016 FOOT DEBRIDEMENT INCISION AND DRAINAGE, 5TH DIGIT, PARTIAL AMB. PLACEMENT OF ANTIBOTIC BEADS performed by Gabriel Haile DPM at [facility] OR CO I&D BELOW FASCIA FOOT 1 BURSAL SPACE Right 04/10/2017 RIGHT ANKLE AND RIGHT HEEL DEBRIDEMENT INCISION AND DRAINAGE WITH CULTURES SENT performed by William Jimenez MD at [facility] OR CO OFFICE/OUTPT VISIT,PROCEDURE ONLY Right 06/14/2017 FOOT DEBRIDEMENT INCISION AND DRAINAGE-ANKLE INCLUDING BONE BIOPSY performed by Ro Husseint [facility] OR TOE AMPUTATION Right 12/25/2016 right fifth toe amputation with I&D, ATB beads per Dr. Haile VENA CAVA FILTER PLACEMENT waverly filter Allergies Allergen Reactions Vancomycin States had kidney issues after taking Current Facility-Administered Medications: gentamicin (GARAMYCIN) 250 mg in sterile water for irrigation 250 mL irrigation, 250 mg, Irrigation, Once, Yakov Min DPM 0.9 % sodium chloride infusion, , IntraVENous, PRN, Shelly Mondragon APRN - TITLE CURATIVE SPECIALIST polyethylene glycol (GoLYTELY) solution 4,000 mL, 4,000 mL, Oral, Once, Shelly Mondragon APRN - DOLLY multivitamin 1 tablet, 1 tablet, Oral, Daily, [...] mL IVPB, 600 mg, IntraVENous, Q8H, Shelly Mondragon APRN - DOLLY, Stopped at 06/25/22 0922 sodium hypochlorite (DAKINS) [...] Matias Garcia MD, 5,000 Units at 06/23/22 6649 PE: VSS, Afebrile, NAD, A&O x 3, Aloof Labs: as above RLE ; lateral ankle ; FT+ ulcerative wound , +PTB IMP: stage 4 ankle decubitus, appaarent bone involvement Stable for minor bedside procedure Tx: see procedure notes P: see orders / AVS Yakov Min DPM 06/25/2022 12:28 PM * LAURENT Gomez - 06/25/2022 11:55 AM EDT Occupational Therapy Facility/Department: [facility] Daily Treatment Note NAME: Ganga [...] Nagy MD 8:05 AM 06/25/2022 * Shelly Mondragon APRN - TITLE CURATIVE SPECIALIST - 06/25/2022 7:34 AM EDT Images from [...] labs-Hgb 7.6 today Nutrition status: morbid obesity Aeronautical Engineering Officer consult initiated Hospital Prophylaxis: DVT: Heparin Stress Ulcer: na Disposition: Shared decision making: All test results, treatment options and disposition options were discussed with the patient today Social determinants of health that may impact management: none Code status: Full Code Disposition: Discharge plan is home [facility] Advanced Care Planning documentation: [x] I [...] the patient's medical record. [DOES NOT SATISFY [facility] PERFORMANCE] Shelly Mondragon APRN - DOLLY , ESTELLE, ROLL EDGE MACHINE OPERATOR-C [facility] 06/25/2022, 7:34 AM IVETT Newman Associated attestation - Matias Garcia MD - 06/25/2022 7:34 PM EDT Images from the original note were not included. [address] , [place], [place], [address] Attestation Patient: Ganga Stinson Date of Admission: 06/22/2022 4:21 PM Hospital Day # 3 Date of Evaluation: 06/25/2022 I personally evaluated and examined the patient [id number] in conjunction with the PA/ROLL EDGE MACHINE OPERATOR and agree with the management and dispostition of the patient. Please see the PA/ROLL EDGE MACHINE OPERATOR's note for full details.My kohli findings are: [...] with the plan as outlined in the ROLL EDGE MACHINE OPERATOR/PA's note Disposition: Discharge plan is pending Please note that this chart was generated using voice recognition Gear[employer] dictation software. Although every effort was made to ensure the accuracy of this automated letter stamping machine operator, some errors in letter stamping machine operator may have occurred. Matias Garcia MD 06/25/2022 [...] Samayoa RN - 06/25/2022 12:52 AM EDT Cutter Machine Tender at bedside at this time to perform [...] Samayoa RN - 06/24/2022 6:43 PM EDT Cutter Machine Tender at bedside at this time to perform [...] 06/24/2022 4:57 PM EDT Physical Therapy Facility/Department: [facility] Daily Treatment Note NAME: Ganga [...] never been a smoker. He saw a clinical material handler at [facility] 2 years ago in 2020. At that [...] He follows with wound clinic at [facility]. Mr. Stinson also denied any current or recent chest pain, abdominal pain, bleeding problems, problems with his medications or any other concerns at this time. Past Medical History: Diagnosis Date Abnormal EKG 06/23/2022 Acute kidney injury superimposed on CKD (HCC) 06/23/2022 Cauda equina syndrome ([facility]) 2004 Depression Hypertension MRSA (methicillin resistant staph aureus) culture positive 04/10/2017 right ankle Open wound of right ankle 12/30/2016 Paralysis of both lower limbs ([facility]) Paraplegia ([facility]) Type II or unspecified type diabetes mellitus without mention of complication, not stated as uncontrolled Unspecified sleep apnea CURRENT ALLERGIES: Vancomycin REVIEW OF SYSTEMS: 14 systems were reviewed. Pertinent positives and negatives as above, all else negative. Past Surgical History: Procedure Laterality Date APPENDECTOMY BACK SURGERY X2 OTHER SURGICAL HISTORY Right 04/10/2017 I&D rt foot/leg wounds CO I&D BELOW FASCIA FOOT 1 BURSAL SPACE Right 12/25/2016 FOOT DEBRIDEMENT INCISION AND DRAINAGE, 5TH DIGIT, PARTIAL AMB. PLACEMENT OF ANTIBOTIC BEADS performed by Gabriel Haile DPM at [facility] OR CO I&D BELOW FASCIA FOOT 1 BURSAL SPACE Right 04/10/2017 RIGHT ANKLE AND RIGHT HEEL DEBRIDEMENT INCISION AND DRAINAGE WITH CULTURES SENT performed by William Jimenez MD at [facility] OR CO OFFICE/OUTPT VISIT,PROCEDURE ONLY Right 06/14/2017 FOOT DEBRIDEMENT INCISION AND DRAINAGE-ANKLE INCLUDING BONE BIOPSY performed by Ro Husseint [facility] OR TOE AMPUTATION Right 12/25/2016 right fifth toe amputation with I&D, ATB beads per Dr. Haile VENA CAVA FILTER PLACEMENT waverly filter Social History: Social History Tobacco Use [...] Mixed hyperlipidemia 04/25/2015 Hyponatremia 04/25/2015 Diabetes mellitus ([facility]) 07/02/2011 Paraplegia ([facility]) 03/12/2011 MSSA (methicillin susceptible Staphylococcus aureus) infection 05/28/2017 Bacterial infection 02/17/2017 Enterococcus faecalis infection 12/28/2016 Skin ulcer of right heel with fat layer exposed ([facility]) 09/02/2016 Skin ulcer of right 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 ([facility]) 04/25/2015 Decubitus ulcer of coccygeal region 07/19/2013 Cauda equina syndrome ([facility]) 12/09/2011 Open wound of knee, leg (except thigh), and ankle, complicated 02/25/2011 Acute kidney injury superimposed on CKD ([facility]) 06/23/2022 Abnormal EKG 06/23/2022 Neurogenic [...] with the plan. Sincerely, Zoila Villafuerte PA-C [facility] Food Photographer [address] [place] [address] , I believe that the risk of [...] 06/24/2022 10:32 AM EDT Occupational Therapy Facility/Department: [facility] Daily Treatment Note NAME: Ganga [...] Bed Mobility Training: (positioned on side for [employer] sound tech to complete ultrasound at end of session) [...] Group Co-treatment Time In 927 Time Out 53 Minutes 25 Gabrielle Francois ABRAHAM/L 06/24/22 * [...] prep on 06/25/2022 6pm KATERINA ATKINS MD [facility] Gastroenterology * Shelly Mondragon APRN - [...] IRon Monitor labs Nutrition status: morbid obesity Aeronautical Engineering Officer consult initiated Hospital Prophylaxis: DVT: Heparin Stress Ulcer: na Disposition: Shared decision making: All test results, treatment options and disposition options were discussed with the patient today Social determinants of health that may impact management: none Code status: Full Code Disposition: Discharge plan is home [facility] Advanced Care Planning documentation: [x] I [...] SATISFY MIPS PERFORMANCE] ESTELLE Katz CNP , ESTELLE, ROLL EDGE MACHINE OPERATOR-C Hospitalist Medicine 06/24/2022, 7:34 AM Blood Transfusion [...] from the original note were not included. [address] , [place], [place], [address] Attestation Patient: Ganga Stinson Date of Admission: 06/22/2022 4:21 PM Hospital Day # 2 Date of Evaluation: 06/24/2022 I personally evaluated and examined the patient [id number] in conjunction with the PA/ROLL EDGE MACHINE OPERATOR and agree with the management and dispostition of the patient. Please see the PA/ROLL EDGE MACHINE OPERATOR's note for full details.My kohli findings are: [...] with the plan as outlined in the ROLL EDGE MACHINE OPERATOR/PA's note Disposition: Discharge plan is pending, GI, Cardiology, Urology consultations, Transfuse if pRBC <7, wound care to the affected area and monitor electrolytes. Please note that this chart was generated using voice recognition Gearworks[employer] dictation software. Although every effort was made to ensure the accuracy of this automated letter stamping machine operator, some errors in letter stamping machine operator may have occurred. Matias Garcia MD 06/24/2022 9:39 PM * Geneva Samayoa RN - 06/24/2022 2:46 AM EDT Spoke with Dr. Garcia and informed him of critical lab levels. No new orders. * Geneva Samayoa RN - 06/24/2022 2:15 AM EDT Cutter Machine Tender at bedside at this time to perform [...] and patient transferred over to [facility]. * Geneva Samayoa RN - 06/23/2022 9:00 PM EDT Cutter Machine Tender at bedside at this time to perform [...] 06/23/2022 4:35 PM EDT Physical Therapy Facility/Department: [facility] Daily Treatment Note NAME: Ganga [...] 06/23/2022 4:31 PM EDT Occupational Therapy Facility/Department: [facility] Daily Treatment Note NAME: Ganga [...] In 1325 Time Out 1403 Minutes 38 Fidelia White ABRAHAM/L * Alix Quezada - 06/23/2022 2:16 PM EDT New foam dressing placed on patients coccyx after having a BM. * Sarah Hare PT - 06/23/2022 2:08 PM EDT Physical Therapy Facility/Department: [facility] Physical Therapy Initial Assessment Name: [...] Ambulation Assistance: Non-ambulatory Transfer Assistance: Independent Active Chemical Treatment Operator: No Additional Comments: Pt. with hx [...] 933 Time Out 0958 Minutes 24 Sarah Hare, PT, DPT * Rae Zamudio, OT - 06/23/2022 11:26 AM EDT Occupational Therapy Facility/Department: [facility] Occupational Therapy Initial Assessment Name: [...] Ambulation Assistance: Non-ambulatory Transfer Assistance: Independent Active Chemical Treatment Operator: No Additional Comments: Pt. with hx [...] 941 Time Out 0958 Minutes 16 Rae Zamduio OT * Anya Christensen RD, LD - [...] to Severe Extremities (+ 2 pitting BLE) Security Team Lead Strength: Not Performed Nutrition Assessment: Altered nutrition [...] Anthropometric Measures: Height: 5' 11 (180.3 cm) [place] Body Weight (IBW): 172 lbs (78 kg) [...] Used for Energy Requirements: Current Energy (kcal/day): 6970-5022 (20-23/kg) Weight Used for Protein Requirements: [place] Protein (g/day): 109-133g (1.4-1.7g/kg) Method Used for [...] Nutrition Supplement ANYA CHRISTENSEN RD, LD Contact: [phone] * Panchito Crockett RN - 06/23/2022 1:00 AM EDT Cutter Machine Tender at bedside for reassessment-see flow sheet for details. Patient remains alert and oriented x4-calm and cooperative. Patient continues to deny pain and discomfort. Incontinence and stewart care provided. Denying any additional needs, call light placed within reach, bed in lowest position and alarm engaged to promote patient safety. Will continue to monitor. * Panchito Crockett RN - 06/23/2022 12:00 AM EDT Cutter Machine Tender attempted to place rowe catheter at this time- unable to advance 16 FR catheter. Rn Assistant Family Teacher notified and will attempt- will continue to monitor. Patient reports no pain or discomfort. * Panchito Crockett RN - 06/22/2022 11:12 PM EDT Cutter Machine Tender phoned Dr. Garcia at this informing physician [...] continue to monitor. [facility] [email or web address] Phone: [phone] 371-652003-31-2023 Hospital Discharge instructions* Discharge Instructions* Fabby Felder [...] the dietitian. Regular documented in this encounterBON [employer] Work Phone: [phone]) [phone] Progress note Author Cathy Brar [facility] June 02, 2022 12:14pm Note Date/Time June 02, 2022 12:[address] [facility] [address] [place] [address] Wound Center Provider Note Signed Patient: Ganga Stinson MR#: [id number] : 1960 Acct:[id number] Age/Sex: 61 / M Copies to: MD Fidel Whitmore MD~ HPI Date of Visit Date of Visit: Date of Service: 06/02/2022 Time of Service: 12:01 Narrative HPI: Patient is being followed for his chronic bilateral ischial, sacral and right foot ulcers. His is doing his dressing changes. Patient has been having some right hip pain and underwent a CT scan in [place] on 03/14/2022. This showed slight deepening of [...] Integumentary/Breasts Skin/Breast: Reports wounds PMFSH Medical History (Updated 06/02/22 @ 12:13 by [...] Sacrum: Bed Appearance: Beefy Red, Bone Palpable, [place] and Yellow Percent of Wound Bed Granulated/Red: 90 Percent of Devitalized: 10 Length (cm): 3.5 Width (cm): 1.8 Depth (cm): 2 CM Sq: 6.300 Undermining Position: 360 Undermining Depth: 3 Surrounding Tissue Appearance: [place] Surrounding Tissue Temp: Warm Drainage Amount: Large Drainage Description: Serosanguineous Drainage Odor: No Odor Left Ischium: Bed Appearance: Beefy Red, Bone Palpable, [place] and Yellow Percent of Wound Bed Granulated/Red: 90 Percent of Devitalized: 10 Length (cm): 7 Width (cm): 6 Depth (cm): 5.5 CM Sq: 42.000 Surrounding Tissue Appearance: [place] Surrounding Tissue Temp: Warm Drainage Amount: Large Drainage Description: Serosanguineous Drainage Odor: No Odor Right Ischium: Bed Appearance: Beefy Red, Bone Palpable, [place] and Yellow Percent of Wound Bed Granulated/Red: 90 Percent of Devitalized: 10 Length (cm): 0.7 Width (cm): 1 Depth (cm): 4 CM Sq: 0.700 Surrounding Tissue Appearance: [place] Surrounding Tissue Temp: Warm Drainage Amount: Moderate Drainage Description: Serosanguineous Drainage Odor: No Odor Left Ankle: Bed Appearance: Brown, [place] and Yellow Percent of Wound Bed Granulated/Red: 5 Percent of Devitalized: 95 Length (cm): 3.5 Width (cm): 2.5 Depth (cm): 0.1 CM Sq: 8.750 Surrounding Tissue Appearance: [place] Surrounding Tissue Temp: Warm Drainage Amount: Moderate Drainage Description: Serosanguineous Drainage Odor: No Odor Medial Ankle: Bed Appearance: Brown, [place] and Yellow Percent of Wound Bed Granulated/Red: 50 Percent of Devitalized: 50 Length (cm): 3.5 Width (cm): 4 Depth (cm): 0.1 CM Sq: 14.000 Surrounding Tissue Appearance: [place] Surrounding Tissue Temp: Warm Drainage Amount: Moderate Drainage Description: Serosanguineous Drainage Odor: No Odor Medial Foot: Bed Appearance: Black Dry, Brown, [place] and Hardware Percent of Wound Bed Granulated/Red: 5 Percent of Devitalized: 95 Length (cm): 2 Width (cm): 1.2 Depth (cm): 0.1 CM Sq: 2.400 Surrounding Tissue Appearance: [place] Surrounding Tissue Temp: Warm Drainage [...] type 2 Diabetes mellitus intermediate insulin use:with intermediate use Diabetes mellitus complication status: with skin complications Diabetes mellitus complication detail: with other skin ulcer Qualified Code(s): E11.622 - Type 2 diabetes mellitus with other skin ulcer; Z79.4 - [facility]CF (current) use of insulin Code(s): E11.9 - [...] signed by MD Cathy Brar> 06/02/22 1214 [facility] Work Phone: [phone]) 104-983112-06-2022 Progress note Author Cathy Brar [facility] March 03, 2022 12:06pm Note Date/Time March 03, 2022 1 2:06pm [facility] [address] [place] [address] Wound Center Provider Note Signed Patient: Ganga Stinson MR#: [id number] : 1960 Acct:[id number] Age/Sex: 61 / M Copies to: MD [...] Ischium: Bed Appearance: Beefy Red, Bone Palpable, [place] and Yellow Percent of Wound [...] Bed Appearance: Beefy Red, Bone Palpable, Devitalized, [place], Yellow and Rolled Edges Percent [...] 2% Jelly Right Buttock: Bed Appearance: Devitalized, [place] and Yellow Percent of Wound Bed Granulated/Red: 100 Percent of Devitalized: 0 Length (cm): 0 Width (cm): 0 Depth (cm): 0 CM Sq: 0.000 Surrounding Tissue Appearance: Hyperpigmented Surrounding Tissue Temp: Warm Drainage Amount: None Drainage Description: Serosanguineous Drainage Odor: No Odor Lidocaine Applied Topically: 2% Jelly Right Lower Medial Leg: Bed Appearance: [place] and Yellow Percent of Wound [...] type 2 Diabetes mellitus intermediate insulin use:with intermediate use Diabetes mellitus complication status: with skin complications Diabetes mellitus complication detail: with other skin ulcer Qualified Code(s): E11.622 - Type 2 diabetes mellitus with other skin ulcer; 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 [address] [place] [address] Wound Center Provider Note Signed Patient: Ganga Stinson MR#: [id number] : 1960 Acct:[id number] Age/Sex: 61 / M Copies to: MD [...] 360 Undermining Depth: 3.5 Surrounding Tissue Appearance: [place] and Rolled Edges Surrounding Tissue Temp: Warm Drainage Amount: Large Drainage Description: Serosanguineous Drainage Odor: No Odor Lidocaine Applied Topically: 2% Jelly Right Heel: Bed Appearance: Beefy Red, [place] and Yellow Percent of Wound Bed Granulated/Red: 50 Percent of Devitalized: 50 Length (cm): 1.0 Width (cm): 1.4 Depth (cm): 0.1 CM Sq: 1.400 Surrounding Tissue Appearance: Peeling and Dryness Surrounding Tissue Temp: Warm Drainage Amount: Small Drainage Description: Serosanguineous Drainage Odor: No Odor Lidocaine Applied Topically: 2% Jelly Right Ischium: Bed Appearance: Beefy Red, Bone Palpable, [place] and Yellow Percent of Wound [...] Bed Appearance: Beefy Red, Bone Palpable, Devitalized, [place], Yellow and Rolled Edges Percent [...] 2% Jelly Right Buttock: Bed Appearance: Devitalized, [place] and Yellow Percent of Wound Bed Granulated/Red: 100 Percent of Devitalized: 0 Length (cm): 0 Width (cm): 0 Depth (cm): 0 CM Sq: 0.000 Surrounding Tissue Appearance: [place] Surrounding Tissue Temp: Warm Drainage Amount: None Drainage Description: Serosanguineous Drainage Odor: No Odor Lidocaine Applied Topically: 2% Jelly Right Lower Medial Leg: Bed Appearance: [place] and Yellow Percent of Wound [...] Diabetes mellitus type: type 2 Diabetes mellitus middle or intermediate school principal insulin use:with middle or intermediate school principal use Diabetes mellitus complication status: with skin complications Diabetes mellitus complication detail: with other skin ulcer Qualified Code(s): E11.622 - Type 2 diabetes mellitus with other skin ulcer; Z79.4 - [facility] (current) use of insulin Code(s): E11.9 - [...] signed by MD Cathy Brar> 01/27/22 1211 [facility] Work Phone: 1(363) 558-151409-27-2022 Progress note Author Cathy Brar [facility] December 23, 2021 12:32pm Note Date/Time December 23, 2021 12:32pm [facility] [address] [place] [address] Wound Center Provider Note Signed Patient: Ganga Stinson MR#: [id number] : 1960 Acct:[id number] Age/Sex: 61 / M Copies to: MD [...] Bed Appearance: Beefy Red, Bone Palpable, Devitalized, [place] and Yellow Percent of Wound Bed Granulated/Red: 95 Percent of Devitalized: 5 Length (cm): 3.2 Width (cm): 2 Depth (cm): 2.5 CM Sq: 6.400 Undermining Position: 10-4:00 Undermining Depth: 5 Surrounding Tissue Appearance: [place] and Macerated Surrounding Tissue Temp: Warm Drainage Amount: Large Drainage Description: Serosanguineous Drainage Odor: No Odor Lidocaine Applied Topically: 2% Jelly Right Heel: Bed Appearance: Beefy Red, Devitalized, Epithelial Tissue or Bridge, [place] and Yellow Percent of Wound [...] Bone Palpable, Devitalized, Epithelial Tissue or Bridge, [place] and Yellow Percent of Wound [...] Bed Appearance: Beefy Red, Bone Palpable, Devitalized, [place] and Yellow Percent of Wound Bed Granulated/Red: 95 Percent of Devitalized: 5 Length (cm): 1.6 Width (cm): 1.6 Depth (cm): 3.5 CM Sq: 2.560 Undermining Position: 10-3:00 Undermining Depth: 3.5 Surrounding Tissue Appearance: Macerated Surrounding Tissue Temp: Warm Drainage Amount: Moderate Drainage Description: Serosanguineous Drainage Odor: No Odor Lidocaine Applied Topically: 2% Jelly Right Buttock: Bed Appearance: Devitalized, [place] and Yellow Percent of Wound Bed Granulated/Red: 95 Percent of Devitalized: 5 Length (cm): 1.5 Width (cm): 0.5 Depth (cm): 0.1 CM Sq: 0.750 Surrounding Tissue Appearance: [place] and Callous Surrounding Tissue Temp: Warm Drainage Amount: Small Drainage Description: Serosanguineous Drainage Odor: No Odor Lidocaine Applied Topically: 2% Jelly Right Lower Lateral Leg: Bed Appearance: Beefy Red, Devitalized, [place] and Yellow Percent of Wound Bed Granulated/Red: 10 Percent of Devitalized: 90 Length (cm): 0 Width (cm): 0 Depth (cm): 0 CM Sq: 0.000 Surrounding Tissue Appearance: Hyperpigmented Surrounding Tissue Temp: Warm Drainage Amount: None Drainage Description: Serosanguineous Drainage Odor: No Odor Lidocaine Applied Topically: 2% Jelly Right Lower Medial Leg: Bed Appearance: Devitalized, Epithelial Tissue or Bridge, [place] and Yellow Percent of Wound [...] type 2 Diabetes mellitus intermediate insulin use:with intermediate use Diabetes mellitus complication status: with skin complications Diabetes mellitus complication detail: with other skin ulcer Qualified Code(s): E11.622 - Type 2 diabetes mellitus with other skin ulcer; Z79.4 - [facility] (current) use of insulin Code(s): E11.9 - [...] by MD Cathy Brar> 12/23/21 1232 [facility] Work Phone: 1(380) 109-303108-23-2022 Progress note Author Cathy Brar [facility] November 18, 2021 11:55am Note Date/Time November 18, 2021 11 :55am [facility] [address] [place] [address] Wound Center Provider Note Signed Patient: Ganga Stinson MR#: [id number] : 1960 Acct:[id number] Age/Sex: 61 / M Copies to: MD [...] Bed Appearance: Beefy Red, Bone Palpable, Devitalized, [place] and Yellow Percent of Wound Bed Granulated/Red: 75 Percent of Devitalized: 25 Length (cm): 3.5 Width (cm): 2.0 Depth (cm): 2.5 CM Sq: 7.000 Undermining Position: 360 (deepest at 3) Undermining Depth: 3.5 Surrounding Tissue Appearance: Hyperpigmented Surrounding Tissue Temp: Warm Drainage Amount: Large Drainage Description: Serosanguineous Drainage Odor: No Odor Lidocaine Applied Topically: 2% Jelly Right Heel: Bed Appearance: Devitalized, [place] and Yellow Percent of Wound Bed Granulated/Red: 1 Percent of Devitalized: 99 Length (cm): 1.6 Width (cm): 2.3 Depth (cm): 0.1 CM Sq: 3.680 Surrounding Tissue Appearance: Hyperpigmented Surrounding Tissue Temp: Warm Drainage Amount: Large Drainage Description: Serosanguineous Drainage Odor: No Odor Lidocaine Applied Topically: 2% Jelly Right Ischium: Bed Appearance: Beefy Red, Bone Palpable, Devitalized, Epithelial Tissue or Bridge, [place] and Yellow Percent of Wound [...] Bed Appearance: Beefy Red, Bone Palpable, Devitalized, [place] and Yellow Percent of Wound Bed Granulated/Red: 90 Percent of Devitalized: 10 Length (cm): 2.0 Width (cm): 2.0 Depth (cm): 3.5 CM Sq: 4.000 Undermining Position: 9-11:00 Undermining Depth: 4.0 Surrounding Tissue Appearance: Hyperpigmented Surrounding Tissue Temp: Warm Drainage Amount: Moderate Drainage Description: Serosanguineous Drainage Odor: No Odor Lidocaine Applied Topically: 2% Jelly Right Buttock: Bed Appearance: Beefy Red, Devitalized, [place] and Yellow Percent of Wound Bed Granulated/Red: 95 Percent of Devitalized: 5 Length (cm): 2.4 Width (cm): 1.0 Depth (cm): 0.1 CM Sq: 2.400 Surrounding Tissue Appearance: Hyperpigmented Surrounding Tissue Temp: Warm Drainage Amount: Moderate Drainage Description: Serosanguineous Drainage Odor: No Odor Lidocaine Applied Topically: 2% Jelly Right Lower Lateral Leg: Bed Appearance: Beefy Red, Devitalized, [place] and Yellow Percent of Wound Bed Granulated/Red: 10 Percent of Devitalized: 90 Length (cm): 1.3 Width (cm): 1.4 Depth (cm): 0.1 CM Sq: 1.820 Surrounding Tissue Appearance: Hyperpigmented Surrounding Tissue Temp: Warm Drainage Amount: Moderate Drainage Description: Serosanguineous Drainage Odor: No Odor Lidocaine Applied Topically: 2% Jelly Right Lower Medial Leg: Bed Appearance: Black Dry, Devitalized, Epithelial Tissue or Bridge, [place] and Yellow Percent of Wound [...] type 2 Diabetes mellitus intermediate insulin use:with intermediate use Diabetes mellitus complication status: with skin complications Diabetes mellitus complication detail: with other skin ulcer Qualified Code(s): E11.622 - Type 2 diabetes mellitus with other skin ulcer; Z79.4 - [facility] (current) use of insulin Code(s): E11.9 - [...] by MD Cathy Brar> 11/18/21 1155 [facility] Work Phone: [phone] Progress note Author Cathy Brar [facility] October 21, 2021 11:44am Note Date/Time October 21, 2021 11:[address] [facility] [address] [place] [address] Wound Center Provider Note Signed Patient: Ganga Stinson MR#: [id number] : 1960 Acct:[id number] Age/Sex: 61 / M Copies to: MD [...] Bed Appearance: Beefy Red, Bone Palpable, Devitalized, [place] and Yellow Percent of Wound Bed Granulated/Red: 75 Percent of Devitalized: 25 Length (cm): 4.2 Width (cm): 3.0 Depth (cm): 3.0 CM Sq: 12.600 Undermining Position: 360 (deepest at 3) Undermining Depth: 3.5 Surrounding Tissue Appearance: Hyperpigmented Surrounding Tissue Temp: Warm Drainage Amount: Large Drainage Description: Serosanguineous Drainage Odor: No Odor Lidocaine Applied Topically: 2% Jelly Right Heel: Bed Appearance: Devitalized, [place] and Yellow Percent of Wound Bed Granulated/Red: 50 Percent of Devitalized: 50 Length (cm): 2.3 Width (cm): 3.2 Depth (cm): 0.1 CM Sq: 7.360 Surrounding Tissue Appearance: Hyperpigmented Surrounding Tissue Temp: Warm Drainage Amount: Large Drainage Description: Serosanguineous Drainage Odor: No Odor Lidocaine Applied Topically: 2% Jelly Right Ischium: Bed Appearance: Beefy Red, Bone Palpable, Devitalized, Epithelial Tissue or Bridge, [place] and Yellow Percent of Wound [...] Bed Appearance: Beefy Red, Bone Palpable, Devitalized, [place] and Yellow Percent of Wound Bed Granulated/Red: 90 Percent of Devitalized: 10 Length (cm): 3.0 Width (cm): 1.6 Depth (cm): 4.5 CM Sq: 4.800 Undermining Position: 9-11:00 Undermining Depth: 1.0 Surrounding Tissue Appearance: Hyperpigmented Surrounding Tissue Temp: Warm Drainage Amount: Moderate Drainage Description: Serosanguineous Drainage Odor: No Odor Lidocaine Applied Topically: 2% Jelly Right Buttock: Bed Appearance: Beefy Red, Devitalized, [place] and Yellow Percent of Wound Bed Granulated/Red: 80 Percent of Devitalized: 20 Length (cm): 2.2 Width (cm): 1.1 Depth (cm): 0.1 CM Sq: 2.420 Surrounding Tissue Appearance: Hyperpigmented Surrounding Tissue Temp: Warm Drainage Amount: Moderate Drainage Description: Serosanguineous Drainage Odor: No Odor Lidocaine Applied Topically: 2% Jelly Right Lower Lateral Leg: Bed Appearance: Beefy Red, Devitalized, [place] and Yellow Percent of Wound Bed Granulated/Red: 10 Percent of Devitalized: 90 Length (cm): 1.3 Width (cm): 1.4 Depth (cm): 0.1 CM Sq: 1.820 Surrounding Tissue Appearance: Hyperpigmented Surrounding Tissue Temp: Warm Drainage Amount: Moderate Drainage Description: Serosanguineous Drainage Odor: No Odor Lidocaine Applied Topically: 2% Jelly Right Lower Medial Leg: Bed Appearance: Black Dry, Devitalized, [place] and Yellow Percent of Wound Bed Granulated/Red: 80 Percent of Devitalized: 20 Length (cm): 1.6 Width (cm): 2.5 Depth (cm): 0.1 CM Sq: 4.000 Surrounding Tissue Appearance: Hyperpigmented Surrounding Tissue Temp: Warm Drainage Amount: Moderate Drainage Description: Serosanguineous Drainage Odor: No Odor Lidocaine Applied Topically: 2% Jelly Right Foot: Bed Appearance: Beefy Red, Devitalized, Epithelial Tissue or Bridge, [place] and Yellow Percent of Wound [...] Diabetes mellitus type: type 2 Diabetes mellitus middle or intermediate school principal insulin use:with intermediate use Diabetes mellitus complication status: with skin complications Diabetes mellitus complication detail: with other skin ulcer Qualified Code(s): E11.622 - Type 2 diabetes mellitus with other skin ulcer; 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 [address] [place] [address] Wound Center Provider Note Signed Patient: Ganga Stinson MR#: [id number] : 1960 Acct:[id number] Age/Sex: 61 / M Copies to: MD [...] Wound/Ulcer Sacrum: Bed Appearance: Bone Palpable, Devitalized, [place] and Yellow Percent of Wound [...] Heel: Bed Appearance: Black Moist, Brown, Devitalized, [place] and Yellow Percent of Wound Bed Granulated/Red: 95 Percent of Devitalized: 5 Length (cm): 3.4 Width (cm): 5.1 Depth (cm): 0.1 CM Sq: 17.340 Surrounding Tissue Appearance: Hyperpigmented Surrounding Tissue Temp: Warm Drainage Amount: Large Drainage Description: Serosanguineous Drainage Odor: No Odor Lidocaine Applied Topically: 2% Jelly Right Ischium: Bed Appearance: Beefy Red, Devitalized, Epithelial Tissue or Bridge, [place] and Yellow Percent of Wound [...] Bed Appearance: Beefy Red, Bone Palpable, Devitalized, [place] and Yellow Percent of Wound Bed Granulated/Red: 90 Percent of Devitalized: 10 Length (cm): 3.9 Width (cm): 1.8 Depth (cm): 5 CM Sq: 7.020 Undermining Position: 9-11:00 Undermining Depth: 2.2 Surrounding Tissue Appearance: Hyperpigmented Surrounding Tissue Temp: Warm Drainage Amount: Moderate Drainage Description: Serosanguineous Drainage Odor: No Odor Lidocaine Applied Topically: 2% Jelly Right Buttock: Bed Appearance: Beefy Red, Devitalized, [place] and Yellow Percent of Wound Bed Granulated/Red: 99 Percent of Devitalized: 1 Length (cm): 2.3 Width (cm): 0.9 Depth (cm): 0.2 CM Sq: 2.070 Surrounding Tissue Appearance: Hyperpigmented Surrounding Tissue Temp: Warm Drainage Amount: Moderate Drainage Description: Serosanguineous Drainage Odor: No Odor Lidocaine Applied Topically: 2% Jelly Right Lower Lateral Leg: Bed Appearance: Beefy Red, Devitalized, [place] and Yellow Percent of Wound Bed Granulated/Red: 20 Percent of Devitalized: 80 Length (cm): 3.8 Width (cm): 2.3 Depth (cm): 0.1 CM Sq: 8.740 Surrounding Tissue Appearance: Hyperpigmented Surrounding Tissue Temp: Warm Drainage Amount: Moderate Drainage Description: Serosanguineous Drainage Odor: No Odor Lidocaine Applied Topically: 2% Jelly Right Lower Medial Leg: Bed Appearance: Black Dry, Devitalized, [place] and Yellow Percent of Wound Bed Granulated/Red: 75 Percent of Devitalized: 25 Length (cm): 2.5 Width (cm): 2.7 Depth (cm): 0.2 CM Sq: 6.750 Surrounding Tissue Appearance: Hyperpigmented Surrounding Tissue Temp: Warm Drainage Amount: Moderate Drainage Description: Serosanguineous Drainage Odor: No Odor Lidocaine Applied Topically: 2% Jelly Right Foot: Bed Appearance: Beefy Red, Devitalized, Epithelial Tissue or Bridge, [place] and Yellow Percent of Wound [...] type 2 Diabetes mellitus intermediate insulin use:with intermediate use Diabetes mellitus complication status: with skin complications Diabetes mellitus complication detail: with other skin ulcer Qualified Code(s): E11.622 - Type 2 diabetes mellitus with other skin ulcer; 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 Work Phone: [phone]) [phone] Progress note Author Cathy Brar [facility] July 29, 2021 12:33pm Note Date/Time July 29, 2021 12:33p m [facility] [address] [place] [address] Wound Center Provider Note Signed Patient: Ganga Stinson MR#: [id number] : 1960 Acct:[id number] Age/Sex: 61 / M Copies to: MD [...] down Wound/Ulcer Sacrum: Bed Appearance: Bone Palpable, [place] and Yellow Percent of Wound [...] Right Heel: Bed Appearance: Black Moist, Brown, [place] and Yellow Percent of Wound Bed Granulated/Red: 15 Percent of Devitalized: 85 Length (cm): 6.0 Width (cm): 9.0 Depth (cm): 0.5 CM Sq: 54.000 Surrounding Tissue Appearance: Hyperpigmented Surrounding Tissue Temp: Warm Drainage Amount: Large Drainage Description: Serosanguineous Drainage Odor: No Odor Lidocaine Applied Topically: 2% Jelly Right Ischium: Bed Appearance: Beefy Red, Epithelial Tissue or Bridge, [place] and Yellow Percent of Wound Bed Granulated/Red: 50 Percent of Devitalized: 50 Length (cm): 9.3 Width (cm): 7.9 Depth (cm): 5.2 CM Sq: 73.470 Undermining Position: 360 (deepest at 7) Undermining Depth: 2.3 Surrounding Tissue Appearance: Hyperpigmented Surrounding Tissue Temp: Warm Drainage Amount: Large Drainage Description: Serosanguineous Drainage Odor: No Odor Lidocaine Applied Topically: 2% Jelly Left Ischium: Bed Appearance: [place] and Yellow Percent of Wound Bed Granulated/Red: 50 Percent of Devitalized: 50 Length (cm): 1.7 Width (cm): 1.5 Depth (cm): 3.5 CM Sq: 2.550 Undermining Position: 3-8 Undermining Depth: 4.5 Surrounding Tissue Appearance: Hyperpigmented Surrounding Tissue Temp: Warm Drainage Amount: Moderate Drainage Description: Serosanguineous Drainage Odor: No Odor Lidocaine Applied Topically: 2% Jelly Right Buttock: Bed Appearance: Beefy Red, [place] and Yellow Percent of Wound Bed Granulated/Red: 75 Percent of Devitalized: 25 Length (cm): 6.6 Width (cm): 2.0 Depth (cm): 0.1 CM Sq: 13.200 Surrounding Tissue Appearance: Hyperpigmented Surrounding Tissue Temp: Warm Drainage Amount: Moderate Drainage Description: Serosanguineous Drainage Odor: No Odor Lidocaine Applied Topically: 2% Jelly Right Lower Lateral Leg: Bed Appearance: Beefy Red, [place] and Yellow Percent of Wound Bed Granulated/Red: 50 Percent of Devitalized: 50 Length (cm): 1.8 Width (cm): 1.5 Depth (cm): 0.1 CM Sq: 2.700 Surrounding Tissue Appearance: Hyperpigmented Surrounding Tissue Temp: Warm Drainage Amount: Moderate Drainage Description: Serosanguineous Drainage Odor: No Odor Lidocaine Applied Topically: 2% Jelly Right Lower Medial Leg: Bed Appearance: Black Dry, [place] and Yellow Percent of Wound [...] type 2 Diabetes mellitus intermediate insulin use:with intermediate use Diabetes mellitus complication status: with skin complications Diabetes mellitus complication detail: with other skin ulcer Qualified Code(s): E11.622 - Type 2 diabetes mellitus with other skin ulcer; 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 See Instructions for Orders See Instructions for Orders See Wound Discharge Instructions for Orders: Patient may require serial debridement to remove devitalized tissue and encourage granulation. Dictated By: Cathy Brar MD DD/ [id number] Signed By: <Electronically signed by MD Cathy Brar> 07/29/21 1233 [facility] Work Phone: Evaluation + Plan note No data available for this section [facility] evaluation note* Diagnosis Onset Date Resolution Status Right hip pain acute Stage IV pressure ulcer of sacral region acute Unstageable pressure ulcer of right heel acute Cauda equina spinal cord injury chronic Diabetes chronic Pressure ulcer of left hip, stage 3 resolved Pressure ulcer of right hip, stage 3 resolved [facility] Work Phone: Evaluation note* Diagnosis Neurogenic bladder Neurogenic bladder, NOS documented [facility] Work Phone: evaluation note* Diagnosis Neurogenic bladder Neurogenic bladder, NOS documented in this encounter [facility] Work Phone: [email or web address] note* Diagnosis Hyperkalemia- Primary Hyperpotassemia Acute kidney [...] of neurogenic bladder documented in this encounter [facility] Phone: [email or web address] note* Diagnosis Acute kidney injury (HCC) Acute kidney failure, unspecified Iron deficiency anemia, unspecified iron deficiency anemia type documented in this encounter [facility] Phone: [email or web address] note* Diagnosis Onset Date Resolution Status Pressure injury of left ischium, stage 4 acute Pressure injury of right ischium, stage 4 acute Pressure ulcer of right foot, stage 2 acute Right hip pain acute 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 Diabetes [facility] Work Phone: Evaluation note* Diagnosis Cauda equina syndrome (HCC) Cauda equina syndrome without mention of neurogenic bladder Neurogenic bladder Neurogenic bladder, NOS Urinary retention Retention of urine, unspecified Urinary incontinence without sensory awareness Incontinence without sensory awareness documented in this encounter [facility] [employer] [facility] [place] [facility]* Diagnosis Cellulitis of left foot- Primary Ulcer of left ankle, with necrosis of bone (HCC) ([facility]) Diabetes mellitus due to underlying condition with diabetic polyneuropathy, unspecified whether middle or intermediate school principal insulin use ([facility]/HCC) Acute complete paraplegia ([facility]/HCC) Acute osteomyelitis of left fibula ([facility]) Foot ulcer, right, with fat layer exposed ([facility]) Venous insufficiency Unspecified venous (peripheral) insufficiency [facility]* Diagnosis Abscess of toe, right- Primary documented in this encounter [facility]* Diagnosis Onset Date Resolution Status [id number] acute Foot ulcer with fat layer exposed acute Stage IV pressure ulcer of right buttock acute 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 buttock, stage 3 chronic [facility] Work Phone: Evaluation note* Diagnosis Type [...] disorder Chronic kidney disease, stage 3a (HCC) (CMS/HCC) Encounter for long-term (current) use of medications Encounter for long-term (current) use of other medications Cauda equina syndrome ([facility]/HCC) Cauda equina syndrome without mention of neurogenic bladder Urticaria- Primary Unspecified urticaria documented in this encounter [facility]* Diagnosis Type 2 diabetes [...] disorder Chronic kidney disease, stage 3a (HCC) (CMS/HCC) Encounter for long-term (current) use of medications Encounter for long-term (current) use of other medications Cauda equina syndrome ([facility]) Cauda equina syndrome without mention of neurogenic bladder Urticaria- Primary Unspecified urticaria Pruritus Unspecified pruritic disorder documented in this encounter [facility]* Diagnosis Type 2 diabetes mellitus with hyperglycemia, without long-term current use of insulin ([facility])- Primary Benign hypertension ([facility]) Essential hypertension, benign Major depressive disorder, recurrent episode, mild (HCC) ([facility]) Major depressive disorder, recurrent episode, mild Incontinence overflow, urine Overflow incontinence Pruritus Unspecified pruritic disorder Chronic kidney disease, stage 3a (HCC) ([facility]) Encounter for long-term (current) use of medications Encounter for long-term (current) use of other medications Cauda equina syndrome ([facility]) Cauda equina syndrome without mention of neurogenic bladder documented in this encounter [facility] HealthcareEvaluation note* Diagnosis Type 2 diabetes mellitus with hyperglycemia, without long-term current use of insulin ([facility])- Primary Dyslipidemia ([facility]) Other and unspecified hyperlipidemia Benign hypertension ([facility]) Essential hypertension, benign Major depressive disorder, recurrent episode, mild (HCC) ([facility]) Major depressive disorder, recurrent episode, mild Incontinence overflow, urine Overflow incontinence Chronic superficial 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 Type 2 diabetes mellitus with hyperglycemia, without long-term current use of insulin ([facility])- Primary Benign hypertension ([facility]) Essential hypertension, benign Major depressive disorder, recurrent episode, mild (HCC) ([facility]) Major depressive disorder, recurrent episode, mild Incontinence overflow, urine Overflow incontinence Pruritus Unspecified pruritic disorder Chronic kidney disease, stage 3a (HCC) ([facility]) Encounter for long-term (current) use of medications Encounter for long-term (current) use of other medications Cauda equina syndrome ([facility]) Cauda equina syndrome without mention of neurogenic bladder Urticaria- Primary Unspecified urticaria Type 2 diabetes mellitus with hyperglycemia, without long-term current use of insulin ([facility])- Primary Benign hypertension ([facility]) Essential hypertension, benign Major depressive disorder, recurrent episode, mild (HCC) ([facility]) Major depressive disorder, recurrent episode, mild Incontinence overflow, urine Overflow incontinence Chronic superficial 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 Urticaria Unspecified urticaria Pruritus Unspecified pruritic disorder Annual physical exam Routine general medical examination at a health care facility Chronic kidney disease, stage 3a (HCC) ([facility]) Class 2 severe obesity due to excess calories with serious comorbidity and body mass index (BMI) of 36.0 to 36.9 in adult ([facility]) Type 2 diabetes mellitus with other specified complication Hyperlipidemia, unspecified ([facility]) Pressure ulcer of right heel, unstageable ([facility]) Type 2 diabetes mellitus with other skin ulcer (CODE) Paraplegia, unspecified Diabetes mellitus due to underlying condition with diabetic polyneuropathy ([facility]) documented in this encounter [facility] HealthcareEvaluation note* Diagnosis Type 2 diabetes mellitus with hyperglycemia, without long-term current use of insulin (HCC)- Primary Dyslipidemia Other and unspecified hyperlipidemia Benign hypertension Essential hypertension, benign Major depressive disorder, recurrent episode, mild Major depressive disorder, recurrent episode, mild Incontinence overflow, urine Overflow incontinence Chronic superficial 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 Type 2 diabetes mellitus with hyperglycemia, without long-term current use of insulin (HCC)- Primary Benign hypertension Essential hypertension, benign Major depressive disorder, recurrent episode, mild Major depressive disorder, recurrent episode, mild Incontinence overflow, urine Overflow incontinence Pruritus Unspecified pruritic disorder Chronic kidney disease, stage 3a ([facility]) Encounter for long-term (current) use of medications Encounter for long-term (current) use of other medications Cauda equina syndrome (HCC) Cauda equina syndrome without mention of neurogenic bladder Urticaria- Primary Unspecified urticaria Type 2 diabetes mellitus with hyperglycemia, without long-term current use of insulin (HCC)- Primary Benign hypertension Essential hypertension, benign Major depressive disorder, recurrent episode, mild Major depressive disorder, recurrent episode, mild Incontinence overflow, urine Overflow incontinence Chronic superficial 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 Urticaria Unspecified urticaria Pruritus Unspecified pruritic disorder Annual physical exam Routine general medical examination at a health care facility Chronic kidney disease, stage 3a ([facility]) Class 2 severe obesity due to excess calories with serious comorbidity and body mass index (BMI) of 36.0 to 36.9 in adult ([facility]) Type 2 diabetes mellitus with other specified complication (HCC) Hyperlipidemia, unspecified Pressure ulcer of right heel, unstageable ([facility]) Type 2 diabetes mellitus with other skin ulcer (CODE) (HCC) Paraplegia, unspecified (HCC) Diabetes mellitus due to underlying condition with diabetic polyneuropathy (HCC) Type 2 diabetes mellitus with hyperglycemia, without long-term current use of insulin (HCC) documented in this encounter [facility] HealthcareHospital Discharge instructions Additional Instructions DISCHARGE INSTRUCTIONS [...] operative site FOLLOW UP Phone numbers: Office [phone] [facility] Work Phone: Hospital Discharge instructions No data available for this section [facility] Hospital Discharge instructions Additional Instructions Wound/Ulcer Instructions/Orders Left Ischium: Dressing: Cleanse with Dakins or saline, saline on 4X4 gauze packing or kerlix, ABD, Kerlix, drawtex, Secure/wrap: Skin prep prior to adhesive [facility] Work Phone: InstructionsNot on filedocumented in this encounter [facility] SystemProgress note No data available for this section [facility] reason for referral (narrative)No reason for referral information availableWooster [facility] Work Phone: Summary Purpose Family History No Family History [...] mother Hypertension Unknown Unknown Heart disease Unknown Relationship Condition Age at Onset Recorded Date/T alverto father Autoimmune disorder Unknown Unknown mother Myocardial infarction Unknown Hypertension Unknown Heart disease Unknown Advance Directives No [...] Fibula Osteomyelitis, Diabetes, Ulcerative Reason for Visit [id number] Foot ulcer with fat layer exposed 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 Cauda equina spinal cord injury Pressure ulcer of left buttock, stage 3 Chief Complaint Open Wound Left Fibula Osteomyelitis, Diabetes, Ulcerative Unknown Reason for Visit [id number] Foot ulcer with fat layer exposed Stage [...] spinal cord injury March 14, 2024 10:42am Chief Complaint Admit Date Open Wound August 15, 2024 10:28 am Nonhealing wounds bilat LE August 30 11:16am Reason for Visit Admit Date Diabetes mellitus due to und erlying condition with diabetic neuropathy, wit August 15, 2024 10:28am Pressure injury of left ischium, stage 4 August 15, 2024 10:28am Pressure injury of right ischium, stage 4 August 15, 2024 10:28am Stage IV pressure ulcer of sacral region August 15, 2024 10:28am Cauda equina spinal cord injury July 10:28am Bilateral lower extremity edema August 11:16am Open wound of both legs with complicatio n August 30, 2024 11:16am Reason for Visit Admit Date Diabetes mellitus due to und erlying condition with diabetic neuropathy, wit August 15, 2024 10:28am Pressure injury of left ischium, stage 4 August 15, 2024 10:28am Pressure injury of right ischium, stage 4 August 15, 2024 10:28am Stage IV pressure ulcer of sacral region August 15, 2024 10:28am Cauda equina spinal cord injury July 10:28am Chief Complaint Admit Date Open Wound August 15, 2024 10:28 am Nonhealing wounds bilat LE August 30 11:16am Hip Ulcer October 02, 2024 10:30 am Reason for Visit Admit Date Diabetes mellitus due to und erlying condition with diabetic neuropathy, wit August 15, 2024 10:28am Pressure injury of left ischium, stage 4 August 15, 2024 10:28am Pressure injury of right ischium, stage 4 August 15, 2024 10:28am Stage IV pressure ulcer of sacral region August 15, 2024 10:28am Cauda equina spinal cord injury July 10:28am Bilateral lower extremity edema August 11:16am Open wound of both legs with complicatio n August 30, 2024 11:16am Diabetes mellitus due to und erlying condition with diabetic neuropathy, wit October 02, 2024 10:30am Pressure injury of left ischium, stage 4 October 02, 2024 10:30am Cauda equina spinal cord injury September 10:30am Reason for Referral Specialty Diagnoses / Procedures Referred By Contac t Referred To Contact Cardiology Diagnoses Neurogenic bladder Procedures EKG 12 Lead Angeles Nagy MD [address] [facility], [address] [place] [address] Referral ID Status Reason Start Date Expiration Date V isits Requested Visits Authorized [id number] Pending Review 06/22/2022 06/22/2023 1 1 Specialty Diagnoses / Procedures Referred By Contac t Referred To Contact Radiology Diagnoses Cauda equina syndrome (HCC) Neurogenic bladder Urinary retention Urinary incontinence without sensory awareness Procedures US RENAL COMPLETE Ashlee Erwin, TAX PROCESSOR - TITLE CURATIVE SPECIALIST [address] [facility] [address] [place] [address] Referral ID Status Reason Start Date Expiration Date Visits Re quested Visits Authorized [id number] Open 09/18/2022 09/18/2023 1 1 Additional Source Comments (unrecognized sect ion and content) No Status Records FoundNo Status Records FoundNo Status Records FoundNo Status Records FoundNo Status Records FoundNo Status Records FoundNo Status Records Found INFORMATION SOURCE (unrecogn ized section and content) DATE CREATED AUTHOR 09/21/2017 [facility] DATE CREATED AUTHOR AUTHOR'S ORGANIZ ATION 04/08/2022 [facility] DATE CREATED AUTHOR AUTHOR'S ORGANIZ ATION 09/27/2022 [facility] DATE CREATED AUTHOR AUTHOR'S ORGANIZ ATION 10/22/2023 [facility] DATE CREATED AUTHOR AUTHOR'S ORGANIZ ATION 08/03/2024 [facility] DATE CREATED AUTHOR AUTHOR'S ORGANIZ ATION 10/09/2024 [facility] DATE CREATED AUTHOR AUTHOR'S ORGANIZ ATION 11/08/2024 [facility] Care Teams (unrecognized sec [...] Active Cathy Brar MD Attending Provider Active Certified Medical Assistant Relationship Specialty Start Date End Date Fidel Abbott MD PCP - General 07/03/15 Certified Medical Assistant Relationship Specialty Start Date End Date Fidel Abbott MD PCP - General 07/03/15 Certified Medical Assistant Relationship Specialty Start Date End Date Fidel Abbott MD PCP - General 07/03/15 Certified Medical Assistant Relationship Specialty Start Date End Date Fidel Abbott MD PCP - General 07/03/15 Certified Medical Assistant Relationship Specialty Start Date End Date Fidel Abbott MD PCP - General 07/03/15 Certified Medical Assistant Relationship Specialty Start Date End Date Fidel Abbott MD PCP - General [facility] Medicine 12/10/22 Fidel Abbott MD [address] [place] [phone] PCP - [employer] 03/29/23 Certified Medical Assistant Relationship Specialty Start Date End Date Fidel Abbott MD PCP - [facility] Medicine 12/10/22 Fidel Abbott MD [address] [place] [phone] PCP [facility] 03/29/23 Certified Medical Assistant Relationship Specialty Start Date End Date Fidel Abbott MD [address] [place] [phone] PCP [facility] 03/29/23 Fidel Abbott MD [address] [place] [phone] PCP [facility] 05/12/23 Team Status: Inactive Member Role Status [...] July 08, 2023 End: July 08, 2023 Certified Medical Assistant Relationship Specialty Start Date End Date Fidel Abbott MD PCP - General 12/28/16 Certified Medical Assistant Relationship Specialty Start Date End Date Fidel Abbott MD [address] [place] [phone] PCP - [employer] 02/26/23 Fidel Abbott MD [address] [place] [phone] PCP General Family Medicine 11/18/23 Certified Medical Assistant Relationship Specialty Start Date End Date Fidel Abbott MD [address] [place] [phone] PCP - [employer] 02/26/23 Fiedl Abbott MD [address] [place] [phone] PCP [facility] 11/18/23 Team Status: Inactive Member Role Status Dates Fidel Abbott MD Primary Care Provider Active S tart: February 08, 2024 End: February 08, 2024 Nina River MD Attending Provider Active St art: February 08, 2024 End: February 08, 2024 Team Status: Active Member Role Status Dates Catyh Brar MD Attending Provider Active Sta rt: February 08, 2024 Fidel Abbott MD Primary Care Provider Active S tart: February 08, 2024 Certified Medical Assistant Relationship Specialty Start Date End Date Fidel Abbott MD [address] [place] [phone] PCP - [employer] 02/26/23 Fidel Abbott MD [address] [place] [phone] PCP - General Family Medicine 11/18/23 Certified Medical Assistant Relationship Specialty Start Date End Date Fidel Abbott MD [address] [place] [phone] PCP - [employer] 02/26/23 Fidel Abbott MD [address] [place] [phone] PCP - General Family Medicine 11/18/23 Certified Medical Assistant Relationship Specialty Start Date End Date Fidel Abbott MD [address] [place] [phone] PCP - [employer] 02/26/23 Fidel Abbott MD [address] [place] [phone] PCP - General Family Medicine 11/18/23 Certified Medical Assistant Relationship Specialty Start Date End Date Fidel Abbott MD PCP - General 12/28/16 Certified Medical Assistant Relationship Specialty Start Date End Date Fidel Abbott MD PCP - General 12/28/16 Certified Medical Assistant Relationship Specialty Start Date End Date Fidel Abbott MD [address] [place] [phone] PCP - [employer] 02/26/23 Fidel Abbott MD [address] [place] [phone] PCP - General Family Medicine 11/18/23 Fidel Abbott MD [address] [place] [phone] PCP - [facility] [employer] 05/05/24 Certified Medical Assistant Relationship Specialty Start Date End Date Fidel Abbott MD [address] [place] [phone] PCP - [employer] 02/26/23 Fidel Abbott MD [address] [place] [phone] PCP - General Family Medicine 11/18/23 Fidel Abbott MD [address] [place] [phone] PCP - [employer] 05/05/24 Certified Medical Assistant Relationship Specialty Start Date End Date Fidel Abbott MD [address] [place] [phone] PCP - [employer] 02/26/23 Fidel Abbott MD [address] [place] [phone] PCP - General Family Medicine 11/18/23 Fidel Abbott MD [address] [place] [phone] PCP - [employer] 05/05/24 Certified Medical Assistant Relationship Specialty Start Date End Date Fidel Abbott MD [address] [place] [phone] PCP - General Family Medicine 11/18/23 Fidel Abbott MD [address] [place] [address] PCP - [employer] 05/05/24 Alvin Gonzalez MA Family Medicine 08/08/24 Team Status: Active Member Role Status Dates Fidel Abbott MD Primary Care Provider Active S tart: August 15, 2024 Cathy Brar MD Attending Provider Active Sta rt: August 15, 2024 Team Status: Inactive Member Role Status Dates Fidel Abbott MD Primary Care Provider Active S tart: August 30, 2024 End: August 30, 2024 [address]ita [address] MD Active St art: August 30, 2024 End: August 30, 2024 Tami Azul NP-C Attending Provider Active Start: August 30, 2024 End: August 30, 2024 Certified Medical Assistant Relationship Specialty Start Date End Date Fidel Abbott MD [address] [place] [address] PCP - General Family Medicine 11/18/23 Team Status: Inactive Member Role Status Dates Fidel Abbott MD Primary Care Provider Active S tart: August 30, 2024 End: August 30, 2024 Tami Azul NP-C Attending Provider Active Start: August 30, 2024 End: August 30, 2024 Team Status: Inactive Member Role Status Dates Fidel Abbott MD Primary Care Provider Active S tart: October 02, 2024 End: October 02, 2024 Cathy Brar MD Attending Provider Active Sta rt: October 02, 2024 End: October 02, 2024 Certified Medical Assistant Relationship Specialty Start Date End Date Fidel Abbott MD [address] [place] [phone] PCP - General Family Medicine 11/18/23 Certified Medical Assistant Relationship Specialty Start Date End Date Fidel Abbott MD [address] [place] [address] PCP - General Family Medicine 11/18/23 Goals (unrecognized section and content) Goals [...] encounterGoals may be documented in an alternate sectionGoals may be documented in an alternate sectionGoals may be documented in an [...] kidney injury (HCC) Matias Garcia MD [address] [place] [address] [facility] [id number] [place] [address] Referral ID Status Reason Start Date Expiration Date Visits Re quested Visits Authorized [id number] 1 1 Specialty Diagnoses / Procedures Referred By Farzaneh sy Referred To Contact Radiology Diagnoses Cauda equina syndrome (HCC) Neurogenic bladder Urinary retention Urinary incontinence without sensory awareness Procedures US RENAL COMPLETE Ashlee Erwin, TAX PROCESSOR - TITLE CURATIVE SPECIALIST [address] [facility] [address] [place] [address] Referral ID Status Reason Start Date Expiration Date Visits Re quested Visits Authorized [id number] Open 09/18/2022 09/18/2023 1 1 Reason Comments Foot Ulcer Reason Onset Date Comments Prescription 05/13/2023 Reason Comments Follow-up Hives Waist up hives and i tchy Reason Comments Med Refill Reason Comments Follow-up Check upItchy from w aist up Reason Comments Follow-up Check up Reason Onset Date Comments Med Refill 11/01/2024 Ordered Prescriptions (unrec ognized section and content) [...] Provider: Dragan Voss RN)1234 (Given - Provider: Junevidaniela) atenolol (TENORMIN) tablet 100 mg 100 mg, Oral, DAILY, First dose on Wed06/23/22 at 0900, Until Discontinued 0907 (Given - Provider: Heri Valdez RN) 0723 (Given - Provider: Heri Valdez RN) 0812 (MAY Hold - Provider: Cammy Autohold - Reason: Unreviewed Transfer Orders)0900 (Automatically Held - Provider: Cammy Autohold)0959 ([facility] Unhold - Provider: Dragan Voss RN)1233 (Given - Provider: [facility] citalopram (CELEXA) tablet 40 mg 40 mg, Oral, DAILY, First dose on Wed06/23/22 at 0900, Until Discontinued 0907 (Given - Provider: Heri Valdez RN) 0723 (Given - Provider: Heri Valdez RN) 0812 (MAR Hold - Provider: [facility] [employer] - Reason: Unreviewed Transfer Orders)0900 (Automatically Held - Provider: Cammy Autohold)0959 ([facility] Unhold - Provider: Dragan Voss RN)1235 (Given - Provider: June [facility]) clindamycin (CLEOCIN) 600 mg in dextrose 5 [...] Samayoa RN)0051 (Stopped - Provider: Geneva Samayoa, RENETTA)0825 (New Bag - Provider: Sylvia Chao)0922 (Stopped [...] - Provider: Linh Rocio)1320 (Stopped - Provider: June Yossia)2045 (Due - Provider: Linda Ibrahim [facility]) fenofibrate (TRIGLIDE) tablet 160 mg 160 mg, [...] Voss RN)1235 (Given - Provider: Linh Rocio) gentamicin (GARAMYCIN) 250 mg in sterile [...] is 1.2 to 1.8 liters per hour. 173 (Given - Provider: Heri Valdez RN) sodium [...] (Automatically Held - Provider: Cammy Autohold)0959 ([facility] Unhold - Provider: Dragan Voss RN) Continuous Medication Order 06/24/2022 06/25/2022 06/26/2022 0.9 % sodium chloride infusion IntraVENous, at 75 mL/hr, CONTINUOUS, Starting on Wed06/22/22 at 2045 0020 (New Bag - Provider: Geneva Samayoa RN) 0812 (MAY Hold - Provider: Cammy [...] less into rate field of order. 0812 (MAY Hold - Pro vider: Cammy Autohold - Reason: Unreviewed Transfer Orders)0959 ([facility] Unhold - Provider: Dragan Voss RN) 0.9 % sodium chloride infusion IntraVENous, at 240 mL/hr, Administer over 10 Minutes, PRN, blood administration, Starting on Wed06/24/22 at 0733, For 1 dose, For use in priming line prior to transfusion (prime via gravity) and flush line post transfusion ONLY. Discontinue once line has been cleared of remaining blood product. 0812 ([facility] Hold - Pro vider: [facility] [employer] - Reason: Unreviewed Transfer Orders)0959 ([facility] Unhold - Provider: Dragan Voss RN) acetaminophen (TYLENOL) suppository 650 mg(Linked Group 1) 650 mg, Rectal, EVERY 6 HOURS PRN, Starting on Wed06/22/22 at 2017, Until Discontinued, Pain Mild (1-3), Fever, For temp greater than 100.4 F (38 C), Administer if oral route cannot be used. 0812 ([facility] - Pro vider: [facility] [employer] - Reason: Unreviewed Transfer Orders)0959 ([facility] Unhold - Provider: Dragan Voss RN) acetaminophen (TYLENOL) tablet 650 mg(Linked Group 1) 650 mg, Oral, EVERY 6 HOURS PRN, Starting on Wed06/22/22 at 2017, Until Discontinued, Pain Mild (1-3), Fever, For temp greater than 100.4 F (38 C), Maximum dose of acetaminophen is 4000 mg from all sources in 24 hours. 0812 ([facility] - Pro vider: [facility] [employer] - Reason: Unreviewed Transfer Orders)0959 ([facility] Unhold - Provider: Dragan Voss RN) ondansetron (ZOFRAN) injection 4 mg(Linked Group 2) 4 mg, IntraVENous, EVERY 6 HOURS PRN, Starting on Wed06/22/22 at 2017, Until Discontinued, Nausea, Vomiting, Administer if oral route cannot be used. 0812 ([facility] - Pro vider: [facility] [employer] - Reason: Unreviewed Transfer Orders)0959 ([facility] Unhold - Provider: Dragan Voss RN) ondansetron (ZOFRAN-ODT) disintegrating tablet 4 mg(Linked Group 2) 4 mg, Oral, EVERY 8 HOURS PRN, Starting on Wed06/22/22 at 2017, Until Discontinued, Nausea, Vomiting 0812 ([facility] - Pro vider: [facility] [employer] - Reason: Unreviewed Transfer Orders)0959 ([facility] Unhold - Provider: Dragan Voss RN) polyethylene glycol (GLYCOLAX) packet 17 g 17 g, Oral, DAILY PRN, Starting on Wed06/22/22 at 2017, Until Discontinued, Constipation, First line therapy for constipation 0812 (MAY Hold - Pro vider: May Autohold - Reason: Unreviewed Transfer Orders)0959 ([facility] Unhold - Provider: Dragan Voss RN) sodium chloride flush 0.9 % injection 10 mL 10 mL, IntraVENous, PRN, Starting on Wed06/22/22 at 2017, Until Discontinued, Line Care, After every IV line use 0812 (MAY Hold - Pro vider: Mar Autohold - Reason: Unreviewed Transfer Orders)0959 ([facility] [facility] Unhold - Provider: Dragan Voss [...] BE BASED ON THE PRIMARY CLINICAL RECORDS. [facility] [employer] [facility]. provides no warranty or guarantee of the accuracy or completeness of information in this document.
== END 2024-11-08 10:31 | disposition home or self-care (01) ==
LOC: WC 10:30
PROVIDERS: PCP Family Medicine; Visit Provider Physician Assistant
DX: L97.312 Non-pressure chronic ulcer of right 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 (principal); L97.813 Non-pressure chronic ulcer of other part of right lower leg with necrosis of muscle; L89.893 Pressure ulcer of other site, stage 3; L89.620 Pressure ulcer of left heel, unstageable; L89.613 Pressure ulcer of right heel, stage 3
CPT/HCPCS: G0463

== ENCOUNTER 2024-11-28 09:19 | Outpatient (RCR) | payer BC, MEDICARE, SELFPAY ==
[2024-11-28 09:50] LABS: Hematocrit 25.0 % (42.0-54.0); Hemoglobin 8.0 g/dL (14.0-18.0); Immature Granulocytes Abs Auto 0.05 10^3/uL (0.00-0.03); Immature Granulocytes Pct Auto 0.4 % (0.0-0.5); Lymphocytes Absolute Auto 1.5 10^3/uL (1.2-3.8); Mean Corpuscular HGB Conc 32.0 g/dL (29.9-35.2); Mean Corpuscular Hemoglobin 26.1 pg (25.9-34.0); Mean Corpuscular Volume 81.4 fL (80.0-94.0); Platelet Count 331 10^3/uL (150-450); Red Blood Count 3.07 10^6/uL (4.70-6.10); White Blood Count 12.5 10^3/uL (4.0-11.0)
[2024-11-28 10:15] LABS: Anion Gap 12.2; Blood Urea Nitrogen 22.0 mg/dL (7.0-18.0); Calcium 8.3 mg/dL (8.5-10.1); Carbon Dioxide 25.4 mmol/L (21.0-32.0); Chloride 105 mmol/L (98-107); Estimated GFR (African America 52 (>=60 mL/min/1.73m^2); Estimated GFR (Non-African Ame 43 (>=60 mL/min/1.73m^2); Glucose 323 mg/dL (74-106); Potassium 3.6 mmol/L (3.5-5.1); Sodium 139 mmol/L (136-145)
[2024-11-28 10:35] LABS: Iron 24.0 ug/dL (65.0-175.0); Percent Iron Saturation 21.1 %; Total Iron Binding Capacity 114.0 ug/dL (250.0-450.0)
[2024-11-28 10:49] LABS: Ferritin 898.0 ng/mL (26.0-388.0)
== END 2024-12-26 23:59 | disposition home or self-care (01) ==
LOC: HEMC 09:19
PROVIDERS: PCP Family Medicine; Visit Provider Internal Medicine Hematology & Oncology
DX: D50.9 Iron deficiency anemia, unspecified (principal); D72.829 Elevated white blood cell count, unspecified; D64.9 Anemia, unspecified; K90.9 Intestinal malabsorption, unspecified; E11.9 Type 2 diabetes mellitus without complications; I10 Essential (primary) hypertension; G47.30 Sleep apnea, unspecified; Z79.84 Long term (current) use of oral hypoglycemic drugs; Z90.49 Acquired absence of other specified parts of digestive tract
CPT/HCPCS: 36415; 80048; 82728; 83540; 83550; 85025; 85652; 86140; G0463

== ENCOUNTER 2024-12-13 10:42 | Outpatient (OUT) | payer BC, MEDICARE, SELFPAY ==
--- OUTSIDE RECORDS SUMMARY | 2024-12-13 10:50 | XMS_ITS | CCD ---
Author Organization [facility] Care Team Providers Care Air Moving Technician Name Role Phone WESTONMICHAELA Unavailable Unavailable NADERER, FIDEL LIEBERMAN Unavailable Unavailabl e AOUAD, THIAGO Sy Unavailable Unavailable BLOOD, GANGA Gutiérrez Unavailable Unavailable BRAMBILA, JAI Chowdhury Unavailable Unavailable SCHNICATHYBOOM STICK WORKER, WILLIAM Unavailable Unavaila ble SHASHA, KHADAR Murphy [...] NADERER, DR FIDEL Tellez Primary Care Unavailable HALIF[place], DR KHADAR Edwards Consulting Unavailable BRAR, DR CATHY Edwards Consulting Unavailable MD Fidel Abbott Primary Care Provider MD Cathy Brar Attending Provider Fidel Abbott MD Primary Care Provider MD Fidel Abbott Primary Care Provider MD Cathy Brar Attending Provider Fidel Abbott MD Primary Care Provider SHELLY MONDRAGON Referring Unavail able NADFIDEL SIN Primary Care UnavailASHLEE Juan Referring Unavailable NADERERFIDEL Primary Care UnavailASHLEE Juan Referring Unavailable NADERERFIDEL Primary Care Unavailabl e ANGELES NAGY Referring Unavailable NADERER, FIDEL LIEBERMAN Primary Care Unavailabl e ZACISTEVEN, ANGELES Attending Unavailable LILO, ANEGLES Admitting Unavailable NADERER, FIDEL LUISANA Primary Care Unavailabl e IACOB, MATIAS Admitting Unavailable IACOB, MATIAS Attending Unavailable MUDDADA, MARY K Consulting Unavailable KATYERER, FIDEL LUISANA Primary Care Unavailabl e LILO, ANGELES Consulting Unavailable BREMYYAKOV FITZPATRICK Consulting Unavailable CIARAROSIE NEIL Consulting Unavailable AHMAD, MICHELLE Garcia Consulting Unavailable MILLY, KATERINA Grijalva Consulting Unavailable KATYELMIRA, FIDEL LUISANA Primary Care Unavailabl e LILO, ANGELES Referring Unavailable NADERER, FIDEL RIOSONY Primary Care Unavailabl e RIP, ASHLEE Merritt Referring Unavailable KATYEREFIDEL Christie Primary Care Physician Milena NAZARIO, Fidel Primary Care Provider Fidel Abbott MD Unavailable Fidel Abbott MD Primary Care Provider MD Fidel Abbott Primary Care Provider MD Cathy Brar Attending Provider CRISTIANA Bah Attending Provider CRISTIANA Bahena Attending Provider Khadar Guerrero Referring Unavailable MILENA, FIDEL Primary Care Unavailable IFDEL ABBOTT Referring Unavailable Fidel Abbott MD Primary Care Provider [phone] Fidel Abbott MD Unavailable Milena NAZARIO, Fidel Primary Care Provider Milena NAZARIO, Fidel Primary Care Provider Nina River MD Attending Provider Cathy Brar MD Attending Provider Cathy Brar MD Attending Provider Fidel Abbott MD Primary Care Provider Fidel Abbott MD Unavailable FIDEL ABBOTT Attending Unavailable MILENA, FIDEL Attending Unavailable FIDEL ABBOTT Attending Unavailable Alvin Gonzalez MA Unavailable Unavailable Fidel Abbott MD Primary Care Provider [phone] Cathy Brar MD Attending Provider [phone] Latha CAICEDO-C, Tami Christie Attending Provider Aleta, Nina Attending Unavailable Aleta, Nina Admitting Unavailable Milena, Fidel Primary Care Unavailable Nadelmira, Fidel Primary Care Unavailable Maykel, Cathy Attending Unavailable Cathy Brar Admitting Unavailable Milena, Fidel Primary Care Unavailable Cathy Brar Attending Unavailable Maykel, Cathy Admitting Unavailable Maykel, Cathy Admitting Unavailable Milena, Fidel Primary Care Unavailable Cathy Brar Attending Unavailable Jesusita Navarro Attending UnavailJesusita Nunn Admitting Unavailabl e Milena, Fidel Primary Care Unavailable ANGIE CHRISTY Attending Unavailable Allergies Allergy Classification Reported Allergen(s) Allergy Type Date of Onset Reaction(s) Facility (11 sources) Vancomycin; Translations: [VANCOMYCIN] Drug Allergy 6 Shut kidneys down [facility] Repository (20 sources) Vancomycin Drug Allergy 6 Other, Unknown, Other (See Comments) [facility] (20 sources) omadacycline; Translations: [omadacycl] Drug allergy 3 Renal pain (finding) [facility] (8 sources) ferrous sulfate; Translations: [ferrous sulfate] Drug Allergy 3 Itching [facility] (1 source) Vancomycin Drug Allergy 5 [facility] Repository Medications Current Medications Medication Drug [...] sources) Dihydropyridine Calcium Channel Guan[place]ito Start: 10-23-2024 End: 11-22-2024 take 1 tablet by mouth once daily amLODIPine (Norvasc) 10 MG tablet Indications: Primary hypertension Take 1 tablet by mouth once daily 30 tablet 5 11/22/2024 Active Start: 12-07-2016 End: 12-08-2016 Amlodipine Discontinued [...] (20 sources) HMG-CoA Reductase Inhibitor Start: 10-23-2024 End: 11-22-2024 take 1 tablet by mouth in the morning atorvastatin (Lipitor) 40 MG tablet Indications: Dyslipidemia TAKE 1 TABLET BY MOUTH IN THE MORNING 30 tablet 5 11/22/2024 Active Start: 08-14-2024 take 1 tablet by [...] sources) Angiotensin Converting Enzyme Inhibitor Start: 10-23-2024 End: 11-22-2024 take 1 tablet by mouth once daily lisinopril 20 MG tablet Indications: Benign hypertension Take 1 tablet by mouth once daily 30 tablet 5 11/22/2024 Active Start: 08-28-2024 take 1 tablet by [...] sources) Dipeptidyl Peptidase 4 Inhibitor Start: 10-23-2024 End: 11-22-2024 take 1 tablet by mouth once daily SITagliptin (Januvia) 100 MG tablet Indications: Type 2 diabetes mellitus with hyperglycemia, without long-term current use of insulin (HCC) Take 1 tablet by mouth once daily 30 tablet 5 11/22/2024 Active Start: 07-29-2021 take 1 tablet by [...] needed for skin irritation November 17, 2018 10:49am March 23, 2019 [...] procedure, # 2 tab(s), Refills(s) 0, Pharmacy: [facility] [id number], 180, cm, 11/09/22 13:16:00 [...] Called to pharmacy 09/09/2021 polyethylene glycol 3350 48736 mg powder for oral solution (1 source) Osmotic Laxative Start: 06-22-2022 17 g, Oral, D AILY PRN, Starting on Wed06/22/22 at 2018, Until Discontinued, Constipation First line therapy for constipation polyethylene glycol 3350 050461 mg / potassium chloride 2970 mg / sodium bicarbonate 6740 mg / sodium chloride 5860 mg / sodium sulfate 45161 mg powder for oral solution (1 source) [...] GM/60ML suspension 45 g sodium zirconium cyclosilicate 32084 mg powder for oral suspension (1 source) [...] 10:21am Start: 12-07-2016 End: 12-08-2016 [facility] 12:00am December 08, 2016 2:50pm Start: 12-07-2016 End: 12-08-2016 Bactrim Discontinued [facility] er 2016 11:00pm December 08, 2016 1:50pm [...] 1 01-07-2017 Episodic Other aftercare (1 source) FCI (current) use of insulin; Translations: [FCI (current) use of insulin] Onset: 5 Episodic [...] Chronic Other nutritional; endocrine; and metabolic disorders (12 sources) Severe obesity; Translations: [Class 2 severe obesity due to excess calories with serious comorbidity and body mass index (BMI) of 36.0 to 36.9 in adult (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 Ganga Stinson, [facility], Dr. Jovanny Villa office has been trying to reach you concerning scheduling your annual bladder scope (cystoscopy) and urethral dilation at the [facility]. We have left several messages without a response. Please call the office as soon as possible so we can get you scheduled and continue to provide you with quality care. Sincerely, Jovanny Villa M.D., F.A.C.S. [facility] [address] [place], [place] [address] , option #3 Normal [facility] Aerobic Cultureon 10-02-2024 Aerobic Culture Comment [...] RESISTANT TO ALL B-LACTAM DRUGS. PERFORMED BY: [facility] [address] [place] [address] PATHOLOGIST PROJECT INTERN LEXA ELLIOTT M.D. Normal [facility] Comment on above: Performed By: #### A ERC #### [address] Basic Metabolic Panelon Creatinine Clr Calc Pharmacy 54.42 Normal [facility] Comment on above: Result Comment: PERF ORMED BY: [place] [address] PATHOLOGIST PROJECT INTERN LEXA ELLIOTT M.D. Performed By: #### C BC, BMP #### [address] GFR/1.73 sq M.predicted MDRD (S/P/Bld) [Vol rate/Area] 45.056 mL/min/{1.73_m2} Normal [facility] Comment on above: Performed By: #### C BC, BMP #### [address] Basophils [#/volume] in Bloo d by Automated countOrdered By: Rafi Cai on 10-02-2024 Basophils (Bld) [#/Vol] 0.1 10*3/uL Normal 0.0-0.2 [facility] Comment on above: Result Comment: PERF ORMED BY: [place] [address] PATHOLOGIST PROJECT INTERN LEXA ELLIOTT M.D. Performed By: #### C BC, BMP #### [place] [address] [place] Basophils/100 leukocytes in Blood by Automated countOrdered By: Rafi Cai on 10-02-2024 Basophils/100 WBC (Bld) 0.6 % Normal . [facility] Comment on above: Performed By: #### C BC, BMP #### [place] [address] [place] Calcium [Mass/volume] in Ser um or PlasmaOrdered By: Rafi Cai on 10-02-2024 Calcium [Mass/Vol] 8.3 mg/dL Low 8.6-10.3 [facility] Comment on above: Performed By: #### C BC, BMP #### [address] Capillary blood glucose linda urement by glucometer (mass/volume)Ordered By: Cathy Brar on 10-02-2024 Glucose [Mass/Vol] 74 mg/dL Normal [facility] Comment on above: Random Glucose Refer ence Range is dependent on time and content of last meal. Glucose of more than 200 mg/dL in a nonstressed, ambulatory subject supports the diagnosis of Diabetes Mellitus. Result Comment: Wever om Glucose Reference Range is dependent on time and content of last meal. Glucose of more than 200 mg/dL in a nonstressed, ambulatory subject supports the diagnosis of Diabetes Mellitus. PERFORMED BY: [place] [address] PATHOLOGIST PROJECT INTERN LEXA ELLIOTT M.D. Performed By: #### G BHARATI #### Point of Care testing , Carbon dioxide, total [Moles /volume] in Serum or PlasmaOrdered By: Rafi Cai on 10-02-2024 CO2 [Moles/Vol] 24.7 mmol/L Normal 21.0-31.0 [facility] Comment on above: Performed By: #### C CHINTAN, BMP #### [address] Chloride [Moles/volume] in S tremayne or PlasmaOrdered By: Rafi Cai on 10-02-2024 Chloride [Moles/Vol] 109 mmol/L High 98-107 [facility] Comment on above: Performed By: #### C CHINTAN, BMP #### [address] Complete Blood Count Auto Di ffon 10-02-2024 Mean Corpuscular HGB Conc 32.2 g/dL Low 32.5-35.6 [facility] Comment on above: Performed By: #### C CHINTAN, BMP #### [address] NRBC% 0.0 /100{WBC} Normal 0-0.5 [facility] Comment on above: Performed By: #### C CHINTAN, BMP #### [facility] [address] White Blood Count 13.7 [CFU]/mL High 4.1-10.5 [facility] Comment on above: Performed By: #### C BC, BMP #### [facility] [address] Creatinine [Mass/volume] in Serum or PlasmaOrdered By: Rafi Cai on 10-02-2024 Creatinine [Mass/Vol] 1.69 mg/dL High 0.70-1.30 [facility] Comment on above: Performed By: #### C BC, BMP #### [address] ECG 12 lead ECGon 10-02-2024 ECG 12 lead ECG [facility] [place] [address] [place] [address] Electrocardiograph Report Signed Patient: Ganga Stinson MR#: [id number] : 1960 Acct:[id number] Age/Sex: 64 / M ADM Date: 10/02/24 Loc: [place] Room: Type: [facility] Attending Dr: Cathy Brar MD Ordering Provider: [...] change was found Confirmed by Jese Whitley ([id number]) on 10/02/2024 4:24:29 PM Referred By: Electronically Signed By: Jese Whitley Transcribed By: MUS Signed By Jese Whitley MD 10/02/24 1624 Normal [facility] Eosinophils [#/volume] in Bl ood by Automated countOrdered By: Rafi Cai on 10-02-2024 Eosinophils (Bld) [#/Vol] 1.2 10*3/uL High 0.0-0.45 [facility] Comment on above: Performed By: #### C CHINTAN, BMP #### [facility] [address] Eosinophils/100 leukocytes i n Blood by Automated countOrdered By: Rafi Cai on 10-02-2024 Eosinophils/100 WBC (Bld) 8.7 % Normal . [facility] Comment on above: Performed By: #### C CHINTAN, BMP #### [address] Erythrocyte distribution wid th [Ratio] by Automated countOrdered By: Rafi Cai on 10-02-2024 Erythrocyte distribution width (RBC) [Ratio] 15.3 % High 12.0-14.8 [facility] Comment on above: Performed By: #### C CHINTAN, BMP #### [address] Erythrocytes [#/volume] in B lood by Automated countOrdered By: Rafi Cai on 10-02-2024 RBC (Bld) [#/Vol] 2.89 10*6/uL Low 3.90-5.60 [facility] Comment on above: Performed By: #### C CHINTAN, BMP #### [address] GLUCOSE POCT GLUCOMETERSon 0 10-02-2024 Glucose [Mass/Vol] 74 mg/dL [facility] Comment on above: Random Glucose Refer ence Range is dependent on time and content of last meal. Glucose of more than 200 mg/dL in a nonstressed, ambulatory subject supports the diagnosis of Diabetes Mellitus. [facility] COMMEMT1 Glu2: Cleaned Meter [facility] Glucose [Mass/Vol] 77 mg/dL [facility] Comment on above: Random Glucose Refer ence Range is dependent on time and content of last meal. Glucose of more than 200 mg/dL in a nonstressed, ambulatory subject supports the diagnosis of Diabetes Mellitus. [facility] Glucose Poct Glucometerson 0 10-02-2024 Commemt1 Glu2: Cleaned Meter Normal [facility] Comment on above: Result Comment: PERF ORMED BY: [place] [address] PATHOLOGIST PROJECT INTERN LEXA ELLIOTT M.D. Performed By: #### G BHARATI #### Point of Care testing , Glucose [Mass/Vol] 77 mg/dL Normal [facility] Comment on above: Result Comment: Wever om Glucose Reference Range is dependent on time and content of last meal. Glucose of more than 200 mg/dL in a nonstressed, ambulatory subject supports the diagnosis of Diabetes Mellitus. Performed By: #### G BHARATI #### Point of Care testing , Glucose [Mass/volume] in Ser um or PlasmaOrdered By: Rafi Cai on 10-02-2024 Glucose [Mass/Vol] 72 mg/dL Normal 70-100 [facility] Comment on above: ADA recommended refe rence rangeRandom Glucose Reference Range is dependent on time and content of last meal. Glucose of more than 200 mg/dL in a nonstressed, ambulatory subject supports the diagnosis of Diabetes Mellitus. Result Comment: [facility] Glucose Reference Range is dependent on time and content of last meal. Glucose of more than 200 mg/dL in a nonstressed, ambulatory subject supports the diagnosis of Diabetes Mellitus. ADA recommended reference range Performed By: #### C BC, BMP #### [address] Hematocrit [Volume Fraction] of Blood by Automated countOrdered By: Rafi Cai on 10-02-2024 Hematocrit (Bld) [Volume fraction] 23.0 % Low 38.8-50.0 [facility] Comment on above: Performed By: #### C BC, BMP #### [address] Hemoglobin [Mass/volume] in BloodOrdered By: Rafi Cai on 10-02-2024 Hemoglobin (Bld) [Mass/Vol] 7.4 g/dL Low 13.0-17.0 [facility] Comment on above: Performed By: #### C BC, BMP #### [place] [address] [place] Martín 10-02-2024 L ------ Specimen: [id number] Received: 10/02/24 Status: ROSIO Rajput Num: [id number] Spec Type: Surgical Subm Dr: Cathy Brar MD Tissues: A Debridement-Skin/Other Than Skin (PRODUCTS OF DEBRIDEMENT) Procedures: Gianna ASHBY/Margo Smith Age/ Patient Sex Location Account Attending Physician Ganga Stinson/Sam [place] [id number] Cathy Brar MD SPEC NUM: [id number] RECD: 10/02/24 STATUS: ROSIO RAJPUT NUM: [id number] NAYLA: 10/02/[address]: Cathy Brar MD ENTERED: 10/02/[address] [facility] [address]: SPEC TYPE: Surgical DEPT: S ENTERED BY: [id number] RECV BY: [id number] ORDERED: HE, Gross/Micro L3 ORDERED: HE, Gross/Micro L3 Pathological Diagnosis Left hip ulcer, [...] to yellow, dull and uniform cut surfaces. Sales Office Administrator sections are submitted in a single cassette. (1, , [id number] A) Microscopic Description Microscopic examination is performed. CPT Codes 49235 Specimen: [id number] Received: 10/02/24 Status: ROSIO Matti Num: [id number] Spec Type: Surgical Subm Dr: Cathy Brar MD Tissues: A Debridement-Skin/Other Than Skin (PRODUCTS OF DEBRIDEMENT) Procedures: ISMA, Gross/Micro L3 Patient: Ganga Stinson [id number] (Continued) Signed (signature on file) Zak Brasher MD 10/04/24 0918 Normal [facility] Leukocytes [#/volume] correc shreya for nucleated erythrocytes in Blood by Automated counOrdered By: Rafi Cai on 10-02-2024 WBC corrected for nucl RBC Auto (Bld) [#/Vol] 13.7 10*3/uL High 4.1-10.5 [facility] Leukocytes [#/volume] in Blo od by Automated countOrdered By: Rafi Cai on 10-02-2024 WBC (Bld) [#/Vol] 13.7 10*3/uL High 4.1-10.5 [facility] Comment on above: Performed By: #### C CHINTAN, BMP #### [facility] [address] [place] [address] [place] Lymphocytes [#/volume] in Bl ood by Automated countOrdered By: Rafi Cai on 10-02-2024 Lymphocytes (Bld) [#/Vol] 1.5 10*3/uL Normal 1.00-4.8 [facility] Comment on above: Performed By: #### C CHINTAN, BMP #### [facility] [address] [place] [address] [place] Lymphocytes/100 leukocytes i n Blood by Automated countOrdered By: Rafi Cai on 10-02-2024 Lymphocytes/100 WBC (Bld) 11.2 % Normal . [facility] Comment on above: Performed By: #### C BC, BMP #### [facility] [address] MCH [Entitic mass] by Automa shreya countOrdered By: Rafi Cai on 10-02-2024 MCH (RBC) [Entitic mass] 25.6 pg Low 27.5-35.2 [facility] Comment on above: Performed By: #### C BC, BMP #### [address] MCHC Auto (RBC) [Mass/Vol]Or dered By: Rafi Cai on 10-02-2024 MCHC (RBC) [Mass/Vol] 32.2 g/dL Low 32.5-35.6 [facility] MCV [Entitic volume] by Auto mated countOrdered By: Rafi Cai on 10-02-2024 MCV (RBC) [Entitic vol] 79.5 fL Low 83.5-101 [facility] Comment on above: Performed By: #### C BC, BMP #### [place] [address] [place] Monocytes [#/volume] in Bloo d by Automated countOrdered By: Rafi Cai on 10-02-2024 Monocytes (Bld) [#/Vol] 1.1 10*3/uL High 0.0-0.8 [facility] Comment on above: Performed By: #### C BC, BMP #### [place] [address] [place] Monocytes/100 leukocytes in Blood by Automated countOrdered By: Rafi Cai on 10-02-2024 Monocytes/100 WBC (Bld) 8.3 % Normal . [facility] Comment on above: Performed By: #### C BC, BMP #### [place] [address] [place] Neutrophils [#/volume] in Bl ood by Automated countOrdered By: Rafi Cai on 10-02-2024 Neutrophils (Bld) [#/Vol] 9.8 10*3/uL High 1.8-7.7 [facility] Comment on above: Performed By: #### C BC, BMP #### [facility] [address] [place] [address] [place] Neutrophils/100 leukocytes i n Blood by Automated countOrdered By: Rafi Cai on 10-02-2024 Neutrophils/100 WBC (Bld) 71.2 % Normal . [facility] Comment on above: Performed By: #### C BC, BMP #### [address] No Panel InformationOrdered By: Rafi Cai on 10-02-2024 Estimated GFR (CKD-EPI) 45.056 mL/Min [facility] Creatinine Clearance (Chem 54.42 [facility] No Panel InformationOrdered By: Cathy Brar on 10-02-2024 Bedside Glucose Comment Glu2: cleaned meter [facility] Nucleated erythrocytes [Pres ence] in Blood by Automated countOrdered By: Rafi Cai on 10-02-2024 Nucleated RBC Auto Ql (Bld) 0.0 /100{WBC} 0-0.5 [facility] Platelet mean volume [Entiti c volume] in Blood by Automated countOrdered By: Rafi Cai on 10-02-2024 Platelet mean volume (Bld) [Entitic vol] 6.2 fL Low 6.6-10.1 [facility] Comment on above: Performed By: #### C CHINTAN, BMP #### [address] Platelets [#/volume] in Bloo d by Automated countOrdered By: Rafi Cai on 10-02-2024 Platelets (Bld) [#/Vol] 339 10*3/uL Normal 150-450 [facility] Comment on above: Performed By: #### C CHINTAN, BMP #### [address] Potassium [Moles/volume] in Serum or PlasmaOrdered By: Rafi Cai on 10-02-2024 Potassium [Moles/Vol] 3.7 mmol/L Normal 3.5-5.1 [facility] Comment on above: Performed By: #### C BC, BMP #### [place] [address] [place] Serum or plasma anion gap de terminationOrdered By: Rafi Cai on 10-02-2024 Anion gap [Moles/Vol] 8.0 mmol/L Normal 6.0-15.0 [facility] Comment on above: Performed By: #### C BC, BMP #### [facility] [address] Sodium [Moles/volume] in Ser um or PlasmaOrdered By: Rafi Cai on 10-02-2024 Sodium [Moles/Vol] 138 mmol/L Normal 136-145 [facility] Comment on above: Performed By: #### C BC, BMP #### [facility] [address] Urea nitrogen [Mass/volume] in Serum or PlasmaOrdered By: Rafi Cai on 10-02-2024 Urea nitrogen [Mass/Vol] 25 mg/dL Normal 7-25 [facility] Comment on above: Performed By: #### C BC, BMP #### [facility] [address] ALL CBC WITH AUTO DIFFon BASOPHILS ABSOLUTE AUTO 0 [facility] Basophils/100 WBC (Bld) 0.3 % 0.2 - 2.0 % [facility] Eosinophils/100 WBC (Bld) 9.5 % High 0.9 - 7.0 % [facility] Erythrocyte distribution width (RBC) [Ratio] 14.3 % 11.0 - 15.0 % [facility] Hematocrit (Bld) [Volume fraction] 23.2 % Critically low 42.0 - 54.0 % [facility] Comment on above: RESULTS CALLED TO NICHOL SWAN RN Hemoglobin (Bld) [Mass/Vol] 7.4 g/dL Low 14.0 - 18.0 g/dL [facility] IMMATURE GRANULOCYTES ABS AUTO 0.07 High [facility] Immature granulocytes/100 WBC (Bld) 0.5 % 0.0 - 0.5 % [facility] Interpretation and review of laboratory results Abnormal [facility] LYMPHOCYTES ABSOLUTE AUTO 1.8 [facility] Lymphocytes/100 WBC (Bld) 13.3 % Low 20.5 - 60.0 % [facility] MCH (RBC) [Entitic mass] 26.6 pg 25.9 - 34.0 pg [facility] MCHC (RBC) [Mass/Vol] 31.9 g/dL 29.9 - 35.2 g/dL [facility] MCV (RBC) [Entitic vol] 83.5 fL 80.0 - 94.0 fL [facility] MONOCYTES ABSOLUTE AUTO 1.1 High [facility] Monocytes/100 WBC (Bld) 7.8 % 1.7 - 12.0 % [facility] NEUTROPHILS ABSOLUTE AUTO 9.3 High [facility] Neutrophils/100 WBC (Bld) 68.6 % 43.0 - 75.0 % [facility] Platelet mean volume (Bld) [Entitic vol] 8.8 fL Low 9.5 - 13.5 fL [facility] TBH EO # 1.3 High [facility] TB PLT 306 [facility] RBC 2.78 Low [facility] WBC 13.5 High [facility] ALL CBC WITH AUTO DIFFon BASOPHILS ABSOLUTE AUTO 0.1 [facility] Basophils/100 WBC (Bld) 0.4 % 0.2 - 2.0 % [facility] Eosinophils/100 WBC (Bld) 9 % High 0.9 - 7.0 % [facility] Erythrocyte distribution width (RBC) [Ratio] 14.5 % 11.0 - 15.0 % [facility] Hematocrit (Bld) [Volume fraction] 23.8 % Critically low 42.0 - 54.0 % [facility] Comment on above: RESULTS CALLED TO TABBY RUBALCAVA RN at 1219 Hemoglobin (Bld) [Mass/Vol] 7.4 g/dL Low 14.0 - 18.0 g/dL [facility] IMMATURE GRANULOCYTES ABS AUTO 0.08 High [facility] Immature granulocytes/100 WBC (Bld) 0.6 % High 0.0 - 0.5 % [facility] Interpretation and review of laboratory results Abnormal [facility] LYMPHOCYTES ABSOLUTE AUTO 1.6 [facility] Lymphocytes/100 WBC (Bld) 12.9 % Low 20.5 - 60.0 % [facility] MCH (RBC) [Entitic mass] 26.3 pg 25.9 - 34.0 pg [facility] MCHC (RBC) [Mass/Vol] 31.1 g/dL 29.9 - 35.2 g/dL [facility] MCV (RBC) [Entitic vol] 84.7 fL 80.0 - 94.0 fL [facility] MONOCYTES ABSOLUTE AUTO 0.9 High [facility] Monocytes/100 WBC (Bld) 7.2 % 1.7 - 12.0 % [facility] NEUTROPHILS ABSOLUTE AUTO 8.9 High [facility] Neutrophils/100 WBC (Bld) 69.9 % 43.0 - 75.0 % [facility] Platelet mean volume (Bld) [Entitic vol] 8.7 fL Low 9.5 - 13.5 fL [facility] TBH EO # 1.2 High [facility] TB PLT 295 [facility] TB RBC 2.81 Low [facility] TB WBC 12.7 High [facility] US ankle/arm indiceson 09-05 US ankle/arm indices [facility] [address] [place] [address] Ultrasound Report Signed Patient: Ganga Stinson MR#: [id number] : 1960 Acct:[id number] Age/Sex: 64 / M ADM Date: 08/30/24 Loc: [facility] Room: Type: [facility] Attending Dr: Jesusita Navarro MD Ordering [...] Navarro MD,FACS,FSVS 09/05/2024 12:35 PM Dictation Location: [facility]-04 Tech: Livia Hawk Transcribed By: MARYANN 09/05/24 1235 Dictated By: Jesusita Navarro MD 09/05/24 1234 Signed By: 09/05/24 1235 Normal [facility] ALL CBC WITH AUTO DIFFon BASOPHILS ABSOLUTE AUTO 0.1 [facility] Basophils/100 WBC (Bld) 0.4 % 0.2 - 2.0 % [facility] Eosin[facility]/100 WBC (Bld) 5 % 0.9 - 7.0 % [facility] Erythrocyte distribution width (RBC) [Ratio] 14.3 % 11.0 - 15.0 % [facility] Hematocrit (Bld) [Volume fraction] 23.4 % Critically low 42.0 - 54.0 % [facility] Comment on above: RESULTS CALLED TO TABBY RUBALCAVA RN Hemoglobin (Bld) [Mass/Vol] 7.3 g/dL Low 14.0 - 18.0 g/dL [facility] IMMATURE GRANULOCYTES ABS AUTO 0.06 High [facility] Immature granulocytes/100 WBC (Bld) 0.4 % 0.0 - 0.5 % [facility] Interpretation and review of laboratory results Abnormal [facility] LYMPHOCYTES ABSOLUTE AUTO 1.6 [facility] Lymphocytes/100 WBC (Bld) 11.5 % Low 20.5 - 60.0 % [facility] MCH (RBC) [Entitic mass] 26 pg 25.9 - 34.0 pg [facility] MCHC (RBC) [Mass/Vol] 31.2 g/dL 29.9 - 35.2 g/dL [facility] MCV (RBC) [Entitic vol] 83.3 fL 80.0 - 94.0 fL [facility] MONOCYTES ABSOLUTE AUTO 1.1 High [facility] Monocytes/100 WBC (Bld) 8.2 % 1.7 - 12.0 % [facility] NEUTROPHILS ABSOLUTE AUTO 10.3 High [facility] Neutrophils/100 WBC (Bld) 74.5 % 43.0 - 75.0 % [facility] Platelet mean volume (Bld) [Entitic vol] 8.9 fL Low 9.5 - 13.5 fL [facility] TBH EO # 0.7 [facility] TBH PLT 319 [facility] TBH RBC 2.81 Low [facility] TBH WBC 13.8 High [facility] ALL CBC WITH AUTO DIFFon BASOPHILS ABSOLUTE AUTO 0.1 [facility] Basophils/100 WBC (Bld) 0.4 % 0.2 - 2.0 % [facility] Eosinophils/100 WBC (Bld) 5.1 % 0.9 - 7.0 % [facility] Erythrocyte distribution width (RBC) [Ratio] 15.3 % High 11.0 - 15.0 % [facility] Hematocrit (Bld) [Volume fraction] 22.9 % Critically low 42.0 - 54.0 % [facility] Comment on above: RESULTS CALLED TO CARLOS FREED RN Hemoglobin (Bld) [Mass/Vol] 6.9 g/dL Critically low 14.0 - 18.0 g/dL [facility] Comment on above: RESULTS CALLED TO CARLOS FREED RN IMMATURE GRANULOCYTES ABS AUTO 0.05 High [facility] Immature granulocytes/100 WBC (Bld) 0.4 % 0.0 - 0.5 % [facility] Interpretation and review of laboratory results Abnormal [facility] LYMPHOCYTES ABSOLUTE AUTO 1.3 [facility] Lymphocytes/100 WBC (Bld) 10.2 % Low 20.5 - 60.0 % [facility] MCH (RBC) [Entitic mass] 24.7 pg Low 25.9 - 34.0 pg [facility] MCHC (RBC) [Mass/Vol] 30.1 g/dL 29.9 - 35.2 g/dL [facility] MCV (RBC) [Entitic vol] 82.1 fL 80.0 - 94.0 fL [facility] MONOCYTES ABSOLUTE AUTO 1.1 High [facility] Monocytes/100 WBC (Bld) 8.1 % 1.7 - 12.0 % [facility] NEUTROPHILS ABSOLUTE AUTO 9.9 High [facility] Neutrophils/100 WBC (Bld) 75.8 % High 43.0 - 75.0 % [facility] Platelet mean volume (Bld) [Entitic vol] 8.9 fL Low 9.5 - 13.5 fL [facility] TBH EO # 0.7 [facility] TBH PLT 292 [facility] RBC 2.79 Low [facility] TB WBC 13.1 High [facility] ALL CBC WITH AUTO DIFFon BASOPHILS ABSOLUTE AUTO 0.1 [facility] Basophils/100 WBC (Bld) 0.6 % 0.2 - 2.0 % [facility] Eosinophils/100 WBC (Bld) 8.8 % High 0.9 - 7.0 % [facility] Erythrocyte distribution width (RBC) [Ratio] 14 % 11.0 - 15.0 % [facility] Hematocrit (Bld) [Volume fraction] 26.9 % Low 42.0 - 54.0 % [facility] Hemoglobin (Bld) [Mass/Vol] 8.1 g/dL Low 14.0 - 18.0 g/dL [facility] IMMATURE GRANULOCYTES ABS AUTO 0.12 High [facility] Immature granulocytes/100 WBC (Bld) 0.9 % High 0.0 - 0.5 % [facility] Interpretation and review of laboratory results Abnormal [facility] LYMPHOCYTES ABSOLUTE AUTO 1.6 [facility] Lymphocytes/100 WBC (Bld) 12.2 % Low 20.5 - 60.0 % [facility] MCH (RBC) [Entitic mass] 24.9 pg Low 25.9 - 34.0 pg [facility] MCHC (RBC) [Mass/Vol] 30.1 g/dL 29.9 - 35.2 g/dL [facility] MCV (RBC) [Entitic vol] 82.8 fL 80.0 - 94.0 fL [facility] MONOCYTES ABSOLUTE AUTO 1 High [facility] Monocytes/100 WBC (Bld) 7.3 % 1.7 - 12.0 % [facility] NEUTROPHILS ABSOLUTE AUTO 9.3 High [facility] Neutrophils/100 WBC (Bld) 70.2 % 43.0 - 75.0 % [facility] Platelet mean volume (Bld) [Entitic vol] 8.9 fL Low 9.5 - 13.5 fL [facility] TBH EO # 1.2 High [facility] TBH PLT 317 [facility] RBC 3.25 Low [facility] TB WBC 13.2 High [facility] ALL SED RATEon 02-14-2024 Interpretation and review of laboratory results Abnormal [facility] TBH SED RATE 67 High NINF [facility] Basic Metabolic Panelon 01-27 Anion gap [Moles/Vol] 9.9 mmol/L Normal 6.0-15.0 [facility] Comment on above: Performed By: #### C BC, BMP #### [facility] [address] [place] [address] Calcium [Mass/Vol] 7.6 mg/dL Low 8.6-10.3 [facility] Comment on above: Performed By: #### C BC, BMP #### [address] Chloride [Moles/Vol] 106 mmol/L Normal 98-107 [facility] Comment on above: Performed By: #### C BC, BMP #### [address] CO2 [Moles/Vol] 26.1 mmol/L Normal 21.0-31.0 [facility] Comment on above: Performed By: #### C BC, BMP #### [address] Creatinine [Mass/Vol] 1.59 mg/dL High 0.70-1.30 [facility] Comment on above: Performed By: #### C BC, BMP #### [address] GFR/1.73 sq M.predicted MDRD (S/P/Bld) [Vol rate/Area] 48.779 mL/min/{1.73_m2} Normal [facility] Comment on above: Performed By: #### C BC, BMP #### [address] Glucose [Mass/Vol] 128 mg/dL High 70-100 [facility] Comment on above: Result Comment: [place] Glucose Reference Range is dependent on time and content of last meal. Glucose of more than 200 mg/dL in a nonstressed, ambulatory subject supports the diagnosis of Diabetes Mellitus. ADA recommended reference range Performed By: #### C BC, BMP #### [address] Potassium [Moles/Vol] 4.0 mmol/L Normal 3.5-5.1 [facility] Comment on above: Performed By: #### C BC, BMP #### [place] [address] [place] Sodium [Moles/Vol] 138 mmol/L Normal 136-145 [facility] Comment on above: Performed By: #### C CHINTAN, BMP #### [facility] [address] Urea nitrogen [Mass/Vol] 24 mg/dL Normal 7-25 [facility] Comment on above: Performed By: #### C CHINTAN, BMP #### [facility] [address] Basophils Auto (Bld) [#/Vol] Ordered By: Nina Aleta on 02-08-2024 Basophils (Bld) [#/Vol] Automated basophil count 0.0-0.2 [facility] Basophils/100 WBC Auto (Bld) Ordered By: Nina Aleta on 02-08-2024 Basophils/100 WBC (Bld) Automated basophil % . [facility] C reactive protein [Mass/vol ume] in Serum or PlasmaOrdered By: Nina Aleta on 02-08-2024 CRP [Mass/Vol] C reactive protein [Mass/volume] in Serum or Plasma High 0.0-0.5 [facility] C-Reactive Proteinon 024 C-Reactive Protein 10.7 mg/dL High 0.0-0.5 [facility] Comment on above: Performed By: #### C CHINTAN, BMP #### [address] Calcium [Mass/volume] in Ser um or PlasmaOrdered By: Nina Aleta on 02-08-2024 Calcium [Mass/Vol] Calcium [Mass/volume ] in Serum or Plasma Low 8.6-10.3 [facility] Carbon dioxide, total [Moles /volume] in Serum or PlasmaOrdered By: Nina Aleta on 02-08-2024 CO2 [Moles/Vol] Carbon dioxide, tota l [Moles/volume] in Serum or Plasma 21.0-31.0 [facility] Chloride [Moles/volume] in S tremayne or PlasmaOrdered By: Nina Aleta on 02-08-2024 Chloride [Moles/Vol] Chloride [Moles/vol ume] in Serum or Plasma 98-107 [facility] Complete Blood Count Auto Di ffon 02-08-2024 Basophils (Bld) [#/Vol] 0.0 10*3/uL Normal 0.0-0.2 [facility] Comment on above: Performed By: #### C BC, BMP, FE PRO, B12, ESR, CRP #### [address] Basophils/100 WBC (Bld) 0.4 % Normal . [facility] Comment on above: Performed By: #### C BC, BMP, FE PRO, B12, ESR, CRP #### [address] Eosinophils (Bld) [#/Vol] 0.2 10*3/uL Normal 0.0-0.45 [facility] Comment on above: Performed By: #### C BC, BMP, FE PRO, B12, ESR, CRP #### [address] Eosinophils/100 WBC (Bld) 2.4 % Normal . [facility] Comment on above: Performed By: #### C BC, BMP, FE PRO, B12, ESR, CRP #### [address] Erythrocyte distribution width (RBC) [Ratio] 15.2 % High 12.0-14.8 [facility] Comment on above: Performed By: #### C BC, BMP, FE PRO, B12, ESR, CRP #### [address] Hematocrit (Bld) [Volume fraction] 23.1 % Low 38.8-50.0 [facility] Comment on above: Performed By: #### C BC, BMP, FE PRO, B12, ESR, CRP #### [address] Hemoglobin (Bld) [Mass/Vol] 7.8 g/dL Low 13.0-17.0 [facility] Comment on above: Performed By: #### C BC, BMP, FE PRO, B12, ESR, CRP #### [address] Lymphocytes (Bld) [#/Vol] 0.7 10*3/uL Low 1.00-4.8 [facility] Comment on above: Performed By: #### C BC, BMP, FE PRO, B12, ESR, CRP #### [address] Lymphocytes/100 WBC (Bld) 7.0 % Normal . [facility] Comment on above: Performed By: #### C BC, BMP, FE PRO, B12, ESR, CRP #### [address] MCH (RBC) [Entitic mass] 26.8 pg Low 27.5-35.2 [facility] Comment on above: Performed By: #### C BC, BMP, FE PRO, B12, ESR, CRP #### [address] MCV (RBC) [Entitic vol] 79.5 fL Low 83.5-101 [facility] Comment on above: Performed By: #### C BC, BMP, FE PRO, B12, ESR, CRP #### [address] Mean Corpuscular HGB Conc 33.7 g/dL Normal 32.5-35.6 [facility] Comment on above: Performed By: #### C BC, BMP, FE PRO, B12, ESR, CRP #### [address] Monocytes (Bld) [#/Vol] 0.5 10*3/uL Normal 0.0-0.8 [facility] Comment on above: Performed By: #### C BC, BMP, FE PRO, B12, ESR, CRP #### [address] Monocytes/100 WBC (Bld) 4.8 % Normal . [facility] Comment on above: Performed By: #### C BC, BMP, FE PRO, B12, ESR, CRP #### [address] Neutrophils (Bld) [#/Vol] 9.0 10*3/uL High 1.8-7.7 [facility] Comment on above: Performed By: #### C BC, BMP, FE PRO, B12, ESR, CRP #### [address] Neutrophils/100 WBC (Bld) 85.4 % Normal . [facility] Comment on above: Performed By: #### C BC, BMP, FE PRO, B12, ESR, CRP #### [address] NRBC% 0.0 /100{WBC} Normal 0-0.5 [facility] Comment on above: Performed By: #### C BC, BMP, FE PRO, B12, ESR, CRP #### [address] Platelet mean volume (Bld) [Entitic vol] 6.7 fL Normal 6.6-10.1 [facility] Comment on above: Performed By: #### C BC, BMP, FE PRO, B12, ESR, CRP #### [address] Platelets (Bld) [#/Vol] 220 10*3/uL Normal 150-450 [facility] Comment on above: Performed By: #### C BC, BMP, FE PRO, B12, ESR, CRP #### [address] RBC (Bld) [#/Vol] 2.91 10*6/uL Low 3.90-5.60 [facility] Comment on above: Performed By: #### C BC, BMP, FE PRO, B12, ESR, CRP #### [address] WBC (Bld) [#/Vol] 10.5 10*3/uL Normal 4.1-10.5 [facility] Comment on above: Performed By: #### C BC, BMP, FE PRO, B12, ESR, CRP #### [facility] [address] Creatinine [Mass/volume] in Serum or PlasmaOrdered By: Nina Aleta on 02-08-2024 Creatinine [Mass/Vol] Creatinine [Mass/v olume] in Serum or Plasma High 0.70-1.30 [facility] Eosinophils Auto (Bld) [#/Vo l]Ordered By: Nina Aleta on 02-08-2024 Eosinophils (Bld) [#/Vol] Automated eosinophil count 0.0-0.45 [facility] Eosinophils/100 WBC Auto (Bl d)Ordered By: Nina Aleta on 02-08-2024 Eosinophils/100 WBC (Bld) Automated eosinophil % . [facility] Erythrocyte Sedimentation Ra мария 02-08-2024 ESR (Bld) [Velocity] 44 mm/h High 0-19 [facility] Comment on above: Result Comment: PERF ORMED BY: [place] [address] PATHOLOGIST PROJECT INTERN FARRAH PAUL M.D. Performed By: #### C BC, BMP, FE PRO, B12, ESR, CRP #### [address] Erythrocyte distribution wid th Auto (RBC) [Ratio]Ordered By: Nina Aleta on 02-08-2024 Erythrocyte distribution width (RBC) [Ratio] Erythrocyte distribution width [Ratio] by Automated count High 12.0-14.8 [facility] Erythrocyte sedimentation ra te by Photometric methodOrdered By: Nina Aleta on 02-08-2024 ESR Photometric method (Bld) [Velocity] Erythrocyte sedimentation rate by Photometric method High 0-19 [facility] FE PROon 02-08-2024 % Iron Saturation Not performed Normal 20-50 [facility] Comment on above: Performed By: #### C BC, BMP #### [address] Ferritin [Mass/Vol] 422.9 ng/mL High 23.9-336.2 [facility] Comment on above: Performed By: #### C BC, BMP #### [facility] [address] [place] [address] [place] Iron [Mass/Vol] ug/dL Low 50-212 [facility] Comment on above: Performed By: #### C BC, BMP #### [facility] [address] [place] [address] [facility] Total Iron Binding Capacity 175 ug/dL Low 255-450 [facility] Comment on above: Performed By: #### C BC, BMP #### [facility] [address] [place] [address] [facility] Transferrin [Mass/Vol] 125 mg/dL Low 203-362 [facility] Comment on above: Performed By: #### C BC, BMP #### [facility] [address] [place] [id number] [facility] Ferritin [Mass/volume] in Se rum or PlasmaOrdered By: Nina River on 02-08-2024 Ferritin [Mass/Vol] Ferritin [Mass/volum e] in Serum or Plasma High 23.9-336.2 [facility] Glucose [Mass/volume] in Ser um or PlasmaOrdered By: Nina River on 02-08-2024 Glucose [Mass/Vol] Glucose [Mass/volume ] in Serum or Plasma High 70-100 [facility] Comment on above: ADA recommended refe rence rangeRandom Glucose Reference Range is dependent on time and content of last meal. Glucose of more than 200 mg/dL in a nonstressed, ambulatory subject supports the diagnosis of Diabetes Mellitus. Hematocrit Auto (Bld) [Volum e fraction]Ordered By: Nina River on 02-08-2024 Hematocrit (Bld) [Volume fraction] Hematocrit [Volume Fraction] of Blood by Automated count Low 38.8-50.0 [facility] Hemoglobin [Mass/volume] in BloodOrdered By: Nina River on 02-08-2024 Hemoglobin (Bld) [Mass/Vol] Hemoglobin [Mass/volume] in Blood Low 13.0-17.0 [facility] Iron [Mass/volume] in Serum or PlasmaOrdered By: Nina River on 02-08-2024 Iron [Mass/Vol] Iron [Mass/volume] i n Serum or Plasma Low 50-212 [facility] Leukocytes [#/volume] correc shreya for nucleated erythrocytes in Blood by Automated counOrdered By: Nina River on 02-08-2024 WBC corrected for nucl RBC Auto (Bld) [#/Vol] Leukocytes [#/volume] corrected for nucleated erythrocytes in Blood by Automated coun 4.1-10.5 [facility] Lymphocytes Auto (Bld) [#/Vo l]Ordered By: Ninastefan River on 02-08-2024 Lymphocytes (Bld) [#/Vol] Lymphocytes [#/volume] in Blood by Automated count Low 1.00-4.8 [facility] Lymphocytes/100 WBC Auto (Bl d)Ordered By: Nina River on 02-08-2024 Lymphocytes/100 WBC (Bld) Lymphocytes/100 leukocytes in Blood by Automated count . [facility] MCH Auto (RBC) [Entitic mass ]Ordered By: Nina River on 02-08-2024 MCH (RBC) [Entitic mass] MCH [Entitic mass] by Automated count Low 27.5-35.2 [facility] MCHC Auto (RBC) [Mass/Vol]Or dered By: Nina River on 02-08-2024 MCHC (RBC) [Mass/Vol] MCHC [Mass/volume] by Automated count 32.5-35.6 [facility] MCV Auto (RBC) [Entitic vol] Ordered By: Nina River on 02-08-2024 MCV (RBC) [Entitic vol] MCV [Entitic volume] by Automated count Low 83.5-101 [facility] Monocytes Auto (Bld) [#/Vol] Ordered By: Nina River on 02-08-2024 Monocytes (Bld) [#/Vol] Automated blood monocyte count 0.0-0.8 [facility] Monocytes/100 WBC Auto (Bld) Ordered By: Nina River on 02-08-2024 Monocytes/100 WBC (Bld) Automated monocyte % . [facility] Neutrophils Auto (Bld) [#/Vo l]Ordered By: Nina River on 02-08-2024 Neutrophils (Bld) [#/Vol] Neutrophils [#/volume] in Blood by Automated count High 1.8-7.7 [facility] Neutrophils/100 WBC Auto (Bl d)Ordered By: Nina River on 02-08-2024 Neutrophils/100 WBC (Bld) Automated neutrophil % . [facility] No Panel InformationOrdered By: Nina River on 02-08-2024 Estimated GFR (CKD-EPI) 48.779 mL/Min [facility] Creatinine Clearance (Chem N/A [facility] Nucleated erythrocytes [Pres ence] in Blood by Automated countOrdered By: Nina River on 02-08-2024 Nucleated RBC Auto Ql (Bld) Nucleated erythrocytes [Presence] in Blood by Automated count 0-0.5 [facility] Platelet mean volume Auto (B ld) [Entitic vol]Ordered By: Nina River on 02-08-2024 Platelet mean volume (Bld) [Entitic vol] Platelet mean volume [Entitic volume] in Blood by Automated count 6.6-10.1 [facility] Platelets Auto (Bld) [#/Vol] Ordered By: Nina River on 02-08-2024 Platelets (Bld) [#/Vol] Platelets [#/volume] in Blood by Automated count 150-450 [facility] Potassium [Moles/volume] in Serum or PlasmaOrdered By: Nina River on 02-08-2024 Potassium [Moles/Vol] Potassium [Moles/v olume] in Serum or Plasma 3.5-5.1 [facility] RBC Auto (Bld) [#/Vol]Ordere d By: Nina River on 02-08-2024 RBC (Bld) [#/Vol] Erythrocytes [#/volu me] in Blood by Automated count Low 3.90-5.60 [facility] Serum or plasma anion gap de terminationOrdered By: Nina River on 02-08-2024 Anion gap [Moles/Vol] Serum or plasma an ion gap determination 6.0-15.0 [facility] Serum or plasma iron binding capacity measurement (mass/volume)Ordered By: Nina River on 02-08-2024 Iron binding capacity [Mass/Vol] Iron binding capacity [Mass/volume] in Serum or Plasma Low 255-450 [facility] Serum or plasma iron saturat ion measurement (mass fraction)Ordered By: Nina River on 02-08-2024 Iron saturation [Mass fraction] Iron saturation [Mass Fraction] in Serum or Plasma [facility] Comment on above: Test not performed Sodium [Moles/volume] in Ser um or PlasmaOrdered By: Nina River on 02-08-2024 Sodium [Moles/Vol] Sodium [Moles/volume ] in Serum or Plasma 136-145 [facility] Transferrin [Mass/volume] in Serum or PlasmaOrdered By: Nina River on 02-08-2024 Transferrin [Mass/Vol] Transferrin [Mass/volume] in Serum or Plasma Low 203-362 [facility] Urea nitrogen [Mass/volume] in Serum or PlasmaOrdered By: Nina River on 02-08-2024 Urea nitrogen [Mass/Vol] Urea nitrogen [Mass/volume] in Serum or Plasma 7-25 [facility] Vitamin B12on 02-08-2024 Cobalamin (Vitamin B12) [Mass/Vol] 701 pg/mL Normal 180-914 [facility] Comment on above: Result Comment: PERF ORMED BY: [place] [address] PATHOLOGIST PROJECT INTERN FARRAH PAUL M.D. Performed By: #### C BC, BMP #### [address] Vitamin B12 ser/plasOrdered By: Ninabharath River on 02-08-2024 Cobalamin (Vitamin B12) [Mass/Vol] Vitamin B12 ser/plas 180-914 [facility] WBC Auto (Bld) [#/Vol]Ordere d By: Ninastefan River on 02-08-2024 WBC (Bld) [#/Vol] Leukocytes [#/volume ] in Blood by Automated count 4.1-10.5 [facility] ALL CBC WITH AUTO DIFFon 09- 05-2024 BASOPHILS ABSOLUTE AUTO 0.0 [facility] Basophils/100 WBC (Bld) 0.3 % 0.2 - 2.0 % [facility] Eosinophils/100 WBC (Bld) 6.4 % 0.9 - 7.0 % [facility] Erythrocyte distribution width (RBC) [Ratio] 16.8 % High 11.0 - 15.0 % [facility] Hematocrit (Bld) [Volume fraction] 29.4 % Low 42.0 - 54.0 % [facility] Hemoglobin (Bld) [Mass/Vol] 9.0 g/dL Low 14.0 - 18.0 g/dL [facility] IMMATURE GRANULOCYTES ABS AUTO 0.04 High [facility] Immature granulocytes/100 WBC (Bld) 0.4 % 0.0 - 0.5 % [facility] Interpretation and review of laboratory results Abnormal [facility] LYMPHOCYTES ABSOLUTE AUTO 1.8 [facility] Lymphocytes/100 WBC (Bld) 17.7 % Low 20.5 - 60.0 % [facility] MCH (RBC) [Entitic mass] 25.3 pg Low 25.9 - 34.0 pg [facility] MCHC (RBC) [Mass/Vol] 30.6 g/dL 29.9 - 35.2 g/dL [facility] MCV (RBC) [Entitic vol] 82.6 fL 80.0 - 94.0 fL [facility] MONOCYTES ABSOLUTE AUTO 0.7 [facility] Monocytes/100 WBC (Bld) 6.7 % 1.7 - 12.0 % [facility] NEUTROPHILS ABSOLUTE AUTO 7.1 High [facility] Neutrophils/100 WBC (Bld) 68.5 % 43.0 - 75.0 % [facility] Platelet mean volume (Bld) [Entitic vol] 8.8 fL Low 9.5 - 13.5 fL [facility] TBH EO # 0.7 [facility] TB PLT 280 [facility] TB RBC 3.56 Low [facility] TB WBC 10.3 [facility] BONE MARROWon 10-11-2023 BONE MARROW SEE SEPARATE REPORT Normal [facility] Comment on above: Result Comment: REVI EWED BY SOLEDAD HUYNH M.D. Performed By: #### E [facility], [id number], MDSDF #### [facility] ([id number]) [address] [place] [address] 82278 #### 88006-3, PENNY #### [facility] ([id number]) [address] [facility], [address] [place] [address] CBC AND AUTO DIFFon 15-20 24 ABSOLUTE BASOPHIL 0.0 X10E9/L Normal 0.0-0.2 [facility] Comment on above: Performed By: #### P INR, CBCA #### [facility] ([id number]) [address] [place] [address] 70023 ABSOLUTE NEUTROPHIL 8.0 X10E9/L High 1.5-6.6 [facility] Comment on above: Performed By: #### P INR, CBCA #### [facility] ([id number]) [address] [place] [address] 46654 Basophils/100 WBC (Bld) 0.3 % Normal [facility] Comment on above: Performed By: #### P INR, CBCA #### [facility] ([id number]) [address] [place] [address] 19238 Eosinophils (Bld) [#/Vol] 0.5 10*3/uL High 0.0-0.4 [facility] Comment on above: Performed By: #### P INR, CBCA #### [facility] ([id number]) [address] [place] [address] 34191 Eosinophils/100 WBC (Bld) 4.4 % Normal [facility] Comment on above: Performed By: #### P INR, CBCA #### [facility] ([id number]) [address] [place] [address] 93183 Erythrocyte distribution width (RBC) [Ratio] 16.8 % High 11.5-15.0 [facility] Comment on above: Performed By: #### P INR, CBCA #### [facility] ([id number]) [address] [place] [address] 95241 Hematocrit (Bld) [Volume fraction] 20.1 % Low 39-49 [facility] Comment on above: Performed By: #### P INR, CBCA #### [facility] ([id number]) [address] [place] [address] 85391 Hemoglobin (Bld) [Mass/Vol] 6.6 g/dL Critically low 13.0-17.0 [facility] Comment on above: Performed By: #### P INR, CBCA #### [facility] ([id number]) [address] [place] [address] 03699 Lymphocytes (Bld) [#/Vol] 1.4 10*3/uL Normal 1.0-3.5 [facility] Comment on above: Performed By: #### P INR, CBCA #### [facility] ([id number]) [address] [place] [address] 92158 Lymphocytes/100 WBC (Bld) 13.0 % Normal [facility] Comment on above: Performed By: #### P INR, CBCA #### [facility] ([id number]) [address] [place] [address] 37768 MCH (RBC) [Entitic mass] 24.7 pg Low 27-34 [facility] Comment on above: Performed By: #### P INR, CBCA #### [facility] ([id number]) [address] [place] [address] 36589 MCHC (RBC) [Mass/Vol] 32.6 g/dL Normal 32-36 [facility] Comment on above: Performed By: #### P INR, CBCA #### [facility] ([id number]) [address] [place] [address] 64979 MCV (RBC) [Entitic vol] 76 fL Low 80-100 [facility] Comment on above: Performed By: #### P INR, CBCA #### [facility] ([id number]) [address] [place] [address] 19450 Monocytes (Bld) [#/Vol] 0.9 10*3/uL Normal 0-0.9 [facility] Comment on above: Performed By: #### P INR, CBCA #### [facility] ([id number]) [address] [place] [address] 30374 Monocytes/100 WBC (Bld) 8.2 % Normal [facility] Comment on above: Performed By: #### P INR, CBCA #### [facility] ([id number]) [address] [place] [address] 47783 Neutrophils/100 WBC (Bld) 74.1 % Normal [facility] Comment on above: Performed By: #### P INR, CBCA #### [facility] ([id number]) [address] [place] [address] 44784 Platelet mean volume (Bld) [Entitic vol] 7.0 fL Normal 7-12 [facility] Comment on above: Performed By: #### P INR, CBCA #### [facility] ([id number]) [address] [place] [address] 11590 Platelets (Bld) [#/Vol] 371 10*3/uL Normal 150-450 [facility] Comment on above: Performed By: #### P INR, CBCA #### [facility] ([id number]) [address] [place] [address] 35068 RBC COUNT 2.66 X10E12/L Low 4.10-5.70 [facility] Comment on above: Performed By: #### P INR, CBCA #### [facility] ([id number]) [address] [place] [address] 67539 WBC (Bld) [#/Vol] 10.8 10*3/uL Normal 4.0-11.0 [facility] Comment on above: Performed By: #### P INR, CBCA #### [facility] ([id number]) [address] [place] [address] 38430 DNA and RNA Extract and Hold on 10-11-2023 DNA and RNA Extract and Hold SEE COMMENTS 10/14/2023 08:52 AM Normal [facility] Comment on above: Result Comment: [...] Molecular Hematopathology Laboratory's test catalog, please contact [facility] at [phone]. Method summary: DNA and RNA were extracted from the received specimen and stored at -80 C. This test was developed and its performance characteristics determined by [facility] in a manner consistent with CLIA requirements. This test has not been cleared or approved by the U.S. Food and Drug Administration. Test Performed by: [facility] [place] [address] Scenario Writer: Rosie Ruby Ph.D.; CLIA# [id number] Performed By: #### E XHR, 13949-3, MDSDF #### [facility] ([id number]) [address] [place] [address] #### 64001-3, PENNY #### [facility] ([id number]) [address] [place] [address] Flow cytometry specialist re view Álvaro (Unsp spec) [Interp]on 10-11-2023 FLOW CYTOMETRY BM SEE SEPARATE REPORT, REVIEWED BY PATHOLOGIST Normal [facility] Comment on above: Performed By: #### E XHR, 25973-0, MDSDF #### [facility] ([id number]) [address] [place] [address], [place] [address] #### 40376-9, BONMAR #### [facility] ([id number]) [address] [place] [address] IR BX AND ASP BONE MARROW SN [...] on the left iliac bone using an [employer] powered bone marrow biopsy system. The bone [...] Guerrero MD on 10/11/2023 9:49 AM Normal [facility] Karyotype Nom (BM)on 10-10- 024 CHROMOSOME BONE MARROW SEE COMMENTS 10/19/2023 02:37 PM Normal [facility] Comment on above: Result Comment: NOTE Test Result Flag Unit RefValue -- Chromosomes, Hematologic, BM Result Summary Normal Interpretation See Note No clonal abnormality was apparent. Since this conventional chromosome study was successful, MDS, Diag FISH was cancelled per lab protocol (Isma Christie et al., CP, 146:86-94, 2016; [facility] MDS Algorithm: [email or web address]-mmfiles/Myelodysplastic_Syndrome_G uideline_to_Diagnosis_and_Follow-up.pdf). Result 46,XY[20] Reason for Referral leukocytosis [...] of the testing process was performed at [facility] [employer] site [id number]. Released By Tanvi Loo M.D. Test Performed by: [facility] [address] [place] [address] Scenario Writer: Rosie Ruby Ph.D.; CLIA# [id number] Performed By: #### E XHR, 48254-2, MDSDF #### [facility] ([id number]) [address] [place] [address], [place] [address] #### 75741-6, BONMAR #### [facility] ([id number]) [address] [place] [address], [address] [place] [address] MYELODYSPLASTIC SYNDROME (MD Jack),DIAGNOSTIC FISH, VARIESon 10-11-2023 MYELODYSPLASTIC SYNDROME (MDS),DIAGNOSTIC FISH, VARIES SEE COMMENTS 10/22/2023 08:45 AM Normal [facility] Comment on above: Result Comment: NOTE Test Result Flag Unit RefValue -- MDS, Diagnostic FISH Interpretation TNP MDS, Diagnostic FISH was cancelled on 10/22/2023 at 08:41; Based on other test results additional testing not required. MDS FISH order was cancelled per laboratory protocol (Isma et al., Amer J Clin Pathol 146:86-94, 2016; [facility] MDS Algorithm: [email or web address]-mmfiles/Myelodysplastic_S yndrome_Guideline_ to_Diagnosis_and_Follow-up.pdf) with Probes -RPN1(G)/MECOM(R), -TP53(R)/D17Z1(G), -D8Z2(G)/MYC(R), -E66D306(R)/20QTER(G), -L2W657(G)/EGR1(R), -D7Z1(G)/D3D353(R) Test Performed by: [facility] [address] [place] [address] Scenario Writer: Rosie Ruby Ph.D.; CLIA# [id number] Performed By: #### E XHR, 89000-8, MDSDF #### [facility] ([id number]) [address] [place] [address] 94635 #### 99929-9, BONMAR #### [facility] ([id number]) [address] [place] [address], [address] [place] [address] PROTIME AND INRon 10-11-2023 INR Coag (PPP) [Relative time] 1.3 {INR} High 0.8-1.1 [facility] Comment on above: Performed By: #### P INR, CBCA #### [facility] ([id number]) [address] [place] [address] 49549 PT Coag (PPP) [Time] 14.9 s High 9.8-13.2 [facility] Comment on above: Result Comment: NEW REFERENCE RANGE Performed By: #### P INR, CBCA #### [facility] ([id number]) [address] [place] [address] 50680 Surgical Pathologyon 024 Surgical Pathology Normal [facility] Comment on above: Result Comment: [facility] [address] [place] [address] 22376 Bone Marrow Consultation Patient Name:GANGA STINSON:1960 (Age: 63)Gender:MTaken:4Reported:4Physician(s):Nina River ([phone])Copy To:Khadar Guerrero M.D. Rec. #:[id number]: #[id number] Final Pathologic Diagnosis Bone marrow, aspiration and [...] acquisition are identified on maturing myeloid cells. Graford on the lymphoid population demonstrates a mixed population of phenotypically unremarkable T-cells, polyclonal B-cells, and natural killer cells, without a detectable monoclonal population. No monotypic plasma cell population is identified. Immunophenotyping antibodies tested: CD2, CD3, CD4, CD5, CD7, CD8, CD10, CD13, CD16, CD19, CD20 , CD23, CD33, CD34, CD38, CD43, CD45, CD56, CD117, CD123, CD138, Grayling, Lambda. Cytoplasmic Grayling/CD38, Cytoplasmic Lambda/CD38, and intrinsic VS38 Immunophenotyping Comment: Immunophenotyping has been used in this diagnostic evaluation. This test was developed and its performance characteristics determined by the [facility]. It has not been [...] Out Soledad Huynh MD Interpretation [place] [address], License number: [id number]. Clinical History Leukocytosis. Gross Description 1. Received in B plus fixative labeled ALLOWAY, clot is a friable portion of hemorrhagic material, 2.2 x 1.0 x 0.4 cm in aggregate. The specimen is submitted entirely in a single cassette. (1, ns, [id number], m1) LADONNA 2. Received in B plus fixative labeled ALLOWAY, core is a pale osborne-pardo cylindrical segment of bone with adherent hemorrhagic material, 1.0 cm in length and 0.2 cm in diameter. The specimen is submitted entirely in a single cassette following a period of decalcification in Rapid-Delbert Immuno. (1, ns, [id number], m1) LADONNA Comment: Per epic IR procedure [...] Bah on 06-04-2023 Glucose [Mass/Vol] 134 mg/dL [facility] Comment on above: Random Glucose Refer ence Range is dependent on time and content of last meal. Glucose of more than 200 mg/dL in a nonstressed, ambulatory subject supports the diagnosis of Diabetes Mellitus. Gram stain for investigation of transfusion reactionOrdered By: Jonathan Bah on 06-04-2023 Microscopic observation Gram stain Nom (Unsp spec) Prevotella disiens [facility] Cult,Urineon 09-26-2022 Cult,Urine Specimen Description .CLEAN CATCH URINE Culture NO SIGNIFICANT GROWTH Report Status FINAL 09/26/2022 Normal [facility] Comment on above: Performed By: #### C MPX, CDP #### [facility] [address] [place] [address] Scenario Writer: Khadar Tang MD US RENAL COMPLETEon 09-20-19 [...] Alexander Mcclain DO 09/19/22 Final result Normal [facility] Unremarkable ultraso und of the kidneys and urinary bladder. RUST RIS CONSOLIDATED EXAMINATION: RETROPERITONEAL ULTRASOUND OF THE KIDNEYS [...] the bladder. No significant post void residual. PN RIS CONSOLIDATED Alexander Mccalin, DO - 09/19/2022 EXAMINATION: RETROPERITONEAL ULTRASOUND OF [...] ultrasound of the kidneys and urinary bladder. [facility] US RENAL COMPLETEOrdered By: Alexander Mcclain on 09-19-2022 [facility] Work Phone: Basic Metabolic Profon 09-18 Anion gap [Moles/Vol] 10 mmol/L Normal 9-17 [facility] Comment on above: Performed By: #### B MP #### [facility] [address] [place] [address] Scenario Writer: Khadar Tang MD BUN/CRE Ratio 26 High 9-20 [facility] Comment on above: Performed By: #### B MP #### [facility] [address] [place] [address] Scenario Writer: Khadar Tang MD Calcium [Mass/Vol] 9.3 mg/dL Normal 8.6-10.4 [facility] Comment on above: Performed By: #### B MP #### [facility] [address] [place] [address] Scenario Writer: Khadar Tang MD Chloride [Moles/Vol] 105 mmol/L Normal 98-107 [facility] Comment on above: Performed By: #### B MP #### [facility] [address] [place] [address] Scenario Writer: Khadar Tang MD CO2 [Moles/Vol] 22 mmol/L Normal 20-31 [facility] Comment on above: Performed By: #### B MP #### [facility] [address] [place] [address] Scenario Writer: Khadar Tang MD Creatinine [Mass/Vol] 1.25 mg/dL High 0.70-1.20 [facility] Comment on above: Performed By: #### B MP #### [facility] [address] [place] [address] Scenario Writer: Khadar Tang MD GFR/1.73 sq M.predicted among non-blacks MDRD (S/P/Bld) [Vol rate/Area] mL/min/{1.73_m2} Normal >60 [facility] Comment on above: Result Comment: [...] secretion. Performed By: #### B MP #### [facility] [address] [place] [address] [place] [address] Scenario Writer: Khadar Tang MD Glucose [Mass/Vol] 186 mg/dL High 70-99 [facility] Comment on above: Performed By: #### B MP #### [facility] [address] [place] [address] Scenario Writer: Khadar Tang MD Potassium [Moles/Vol] 4.1 mmol/L Normal 3.7-5.3 [facility] Comment on above: Performed By: #### B MP #### [facility] [address] [place] [address] Scenario Writer: Khadar Tang MD Sodium [Moles/Vol] 137 mmol/L Normal 135-144 [facility] Comment on above: Performed By: #### B MP #### [address] [place] [address] Scenario Writer: Khadar Tang MD Urea nitrogen [Mass/Vol] 32 mg/dL High 8-23 [facility] Comment on above: Performed By: #### B MP #### [address] [place] [address] Scenario Writer: Khadar Tang MD RENAL COMPLETEon 09-19-19 Radiology Study observation (narrative) [facility] Hemoglobin A1Con 2022 Glucose [Mass/Vol] 171 mg/dL Normal [facility] Comment on above: Result Comment: The ADA and AACC recommend providing the estimated average glucose result to permit better patient understanding of their HBA1c result. Performed By: #### G LYHGB #### [address] [place], [place] [id number] Scenario Writer: Jeff Casanova MD HbA1c (Bld) [Mass fraction] 7.6 % High 4.0-6.0 [facility] Comment on above: Performed By: #### G LYHGB #### [address] [place], [place] [address] Scenario Writer: Jeff Casanova MD OPERATIVE REPORTon 3 OPERATIVE REPORT [address] [address] OPERATIVE REPORT PATIENT NAME: GANGA STINSON : 1960 MED REC NO: [id number] ROOM: ACCOUNT NO: [id number] ADMIT DATE: 2022 PROVIDER: Angeles Nagy DATE OF PROCEDURE: 2022 SURGEON: Dr. Angeles Nagy. BARREL ROLLER OPERATOR: None. PREOPERATIVE DIAGNOSES: 1. Neurogenic bladder. 2. Urethral stricture. POSTOPERATIVE DIAGNOSES: 1. Neurogenic bladder. 2. Urethral stricture. PROCEDURE PERFORMED: Direct visual internal urethrotomy. ANESTHESIA: General. COMPLICATIONS: None. ESTIMATED BLOOD LOSS: Minimal. SPECIMENS: None. PROSTHESIS: An 18-Yemeni Rowe catheter. DISPOSITION: Stable. FINDINGS: Bulbous urethral stricture. 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 DESCRIPTION OF PROCEDURE: The patient was taken back to the operating room after informed consent including all risks, benefits, and alternatives were obtained. The patient was transferred [facility] onto the operating room table, where he was induced under general anesthesia and given IV Ancef for preoperative antibiotic prophylaxis. To begin the case, he was prepped and draped in the normal sterile fashion and placed in dorsal lithotomy. He had a 21-Yemeni sheath with a 30-degree lens passed through [...] then removed the scope and inserted an 18-Yemeni Rowe catheter with ease. He was then awoken from general anesthesia, transferred to the [facility], and taken to the PACU in satisfactory condition by Nursing and Anesthesia Teams. PLAN: The patient will be discharged home per PACU criterion and follow up with me in one week for Rowe catheter removal. ANGELES NAGY [place]/Jerry_CGGIS_I Doc#: [id number] CC: Normal [facility] Basic Metabolic Panelon 04-0 Anion gap [Moles/Vol] 10 mmol/L 9 - 17 mmol/L [facility] Calcium [Mass/Vol] 8.8 mg/dL 8.6 - 10. 4 mg/dL [facility] Chloride [Moles/Vol] 106 mmol/L 98 - 10 7 mmol/L [facility] CO2 [Moles/Vol] 24 mmol/L 20 - 31 mmol/L [facility] Creatinine [Mass/Vol] 1.3 mg/dL High 0.70 - 1.20 mg/dL [facility] GFR/1.73 sq M.predicted MDRD (S/P/Bld) [Vol rate/Area] - PINF [facility] Comment on above: These results are [...] 250 mg/dL High 70 - 99 mg/dL [facility] Interpretation and review of laboratory results Abnormal [facility] Potassium [Moles/Vol] 4.0 mmol/L 3.7 - 5.3 mmol/L [facility] Sodium [Moles/Vol] 140 mmol/L 135 - 144 mmol/L [facility] Urea nitrogen [Mass/Vol] 29 mg/dL High 8 - 23 mg/dL [facility] Urea nitrogen/Creatinine (Bld) [Mass ratio] 22 High 9 - 20 [facility] Basic Metabolic Profon 07-02 Anion gap [Moles/Vol] 10 mmol/L Normal 9-17 [facility] Comment on above: Performed By: #### C MPX, CDP #### [facility] [address] [place] [address] Scenario Writer: Khadar Tang MD BUN/CRE Ratio 22 High 9-20 [facility] Comment on above: Performed By: #### C MPX, CDP #### [facility] [address] [place] [address] Scenario Writer: Khadar Tang MD Calcium [Mass/Vol] 8.8 mg/dL Normal 8.6-10.4 [facility] Comment on above: Performed By: #### C MPX, CDP #### [facility] [address] [place] [address] Scenario Writer: Khadar Tang MD Chloride [Moles/Vol] 106 mmol/L Normal 98-107 [facility] Comment on above: Performed By: #### C MPX, CDP #### [facility] [address] [place] [address] Scenario Writer: Khadar Tang MD CO2 [Moles/Vol] 24 mmol/L Normal 20-31 [facility] Comment on above: Performed By: #### C MPX, CDP #### [facility] [address] [place] [address] Scenario Writer: Khadar Tang MD Creatinine [Mass/Vol] 1.30 mg/dL High 0.70-1.20 [facility] Comment on above: Performed By: #### C MPX, CDP #### [facility] [address] [place] [address] Scenario Writer: Khadar Tang MD GFR/1.73 sq M.predicted among non-blacks MDRD (S/P/Bld) [Vol rate/Area] mL/min/{1.73_m2} Normal >60 [facility] Comment on above: Result Comment: [...] Performed By: #### C MPX, CDP #### [facility] [address] [place] [address] Scenario Writer: Khadar Tang MD Glucose [Mass/Vol] 250 mg/dL High 70-99 [facility] Comment on above: Performed By: #### C MPX, CDP #### [facility] [address] [place] [address] Scenario Writer: Khadar Tang MD Potassium [Moles/Vol] 4.0 mmol/L Normal 3.7-5.3 [facility] Comment on above: Performed By: #### C MPX, CDP #### [facility] [address] [place], [place] [address] Scenario Writer: Khadar Tang MD Sodium [Moles/Vol] 140 mmol/L Normal 135-144 [facility] Comment on above: Performed By: #### C MPX, CDP #### [facility] [address] [place], [place] 0[address] Scenario Writer: Khadar Tang MD Urea nitrogen [Mass/Vol] 29 mg/dL High 8-23 [facility] Comment on above: Performed By: #### C MPX, CDP #### [facility] [address] [place], [facility] Scenario Writer: Khadar Tang MD CBC with Auto Differentialon 07-02-2022 Absolute Eos # 0.80 High MAUD S [facility] Absolute Immature Granulocyte 0.06 [facility] Absolute Lymph # 1.38 [facility] Absolute [facility] # [facility] Basophils Absolute [place]RS [facility] Basophils/100 WBC (Bld) 0 % 0 - 2 % [facility] Eosinophils/100 WBC (Bld) 7 % High 1 - 4 % [facility] Hematocrit (Bld) [Volume fraction] 26.8 % Low 40.7 - 50.3 % [facility] Hemoglobin (Bld) [Mass/Vol] 7.9 g/dL Low 13.0 - 17.0 g/dL [facility] Immature granulocytes/100 WBC (Bld) 1 % High 0 [facility] Interpretation and review of laboratory results Abnormal [facility] Lymphocytes/100 WBC (Bld) 13 % Low 24 - 43 % [facility] MCH (RBC) [Entitic mass] 23.3 pg Low 25.2 - 33.5 pg [facility] MCHC (RBC) [Mass/Vol] 29.5 g/dL 28.4 - 34.8 g/dL [facility] MCV (RBC) [Entitic vol] 79.1 fL Low 82.6 - 102.9 fL [facility] Monocytes/100 WBC (Bld) 8 % 3 - 12 % [facility] NRBC Automated 0.0 0.0 per 100 WBC [facility] Platelet distribution width (Bld) [Ratio] 16.1 % High 11.8 - 14.4 % [facility] Platelet mean volume (Bld) [Entitic vol] 9.1 fL 8.1 - 13.5 fL [facility] Platelets (Bld) [#/Vol] 241 10*3/uL [facility] RBC (Bld) [#/Vol] 3.39 10*6/uL Low 4.21 - 5.77 m/uL [facility] Segmented neutrophils/100 WBC (Bld) 71 % High 36 - 65 % [facility] Segs Absolute 7.79 [facility] WBC (Bld) [#/Vol] 10.9 10*3/uL [facility] CBC with Diffon 07-02-2022 Abs. Basophil <0.03 Normal 0.00-0.20 [facility] Comment on above: Performed By: #### C MPX, CDP #### [facility] [address] [place] [address] Scenario Writer: Khadar Tang MD Abs.Imm.Granulocyte 0.06 k/uL Normal 0.00-0.30 [facility] Comment on above: Performed By: #### C MPX, CDP #### [facility] [address] [place] [address] Scenario Writer: Khadar Tang MD Abs.Neutrophil (Seg) 7.79 k/uL Normal 1.50-8.10 [facility] Comment on above: Performed By: #### C MPX, CDP #### [facility] [address] [place] [address] [address] [place], [place] [id number] Scenario Writer: Khadar Tang MD Basophils/100 WBC (Bld) 0 % Normal 0-2 [facility] Comment on above: Performed By: #### C MPX, CDP #### [address] [place], [place] [id number] Scenario Writer: Khadar Tang MD Eosinophils (Bld) [#/Vol] 0.80 10*3/uL High 0.00-0.44 [facility] [facility] Comment on above: Performed By: #### C MPX, CDP #### [address] [place], [place] [id number] Scenario Writer: Khadar Tang MD Eosinophils/100 WBC (Bld) 7 % High 1-4 [facility] Comment on above: Performed By: #### C MPX, CDP #### [address] [place], [place] [id number] Scenario Writer: Khadar Tang MD Erythrocyte distribution width (RBC) [Ratio] 16.1 % High 11.8-14.4 [facility] Comment on above: Performed By: #### C MPX, CDP #### [address] [place], [place] [id number] Scenario Writer: Khaadr Tang MD Hematocrit (Bld) [Volume fraction] 26.8 % Low 40.7-50.3 [facility] Comment on above: Performed By: #### C MPX, CDP #### [address] [place] [address] Scenario Writer: Khadar Tang MD Hemoglobin (Bld) [Mass/Vol] 7.9 g/dL Low 13.0-17.0 [facility] Comment on above: Performed By: #### C MPX, CDP #### [address] [place], [place] [id number] Scenario Writer: Khadar Tang MD Immature granulocytes/100 WBC (Bld) 1 % High 0 [facility] Comment on above: Performed By: #### C MPX, CDP #### [facility] [address] [place] [id number] Scenario Writer: Khadar Tang MD Lymphocytes (Bld) [#/Vol] 1.38 10*3/uL Normal 1.10-3.70 [facility] Comment on above: Performed By: #### C MPX, CDP #### [address] [place], [place] [id number] Scenario Writer: Khadar Tang MD Lymphocytes/100 WBC (Bld) 13 % Low 24-43 [facility] Comment on above: Performed By: #### C MPX, CDP #### [address] [place], [facility] Scenario Writer: Khadar Tang MD MCH (RBC) [Entitic mass] 23.3 pg Low 25.2-33.5 [facility] Comment on above: Performed By: #### C MPX, CDP #### [address] [place], [place] [id number] Scenario Writer: Khadar Tang MD MCHC (RBC) [Mass/Vol] 29.5 g/dL Normal 28.4-34.8 [facility] Comment on above: Performed By: #### C MPX, CDP #### [facility] [address] [place] [address] Dr. [place], [place] [id number] Scenario Writer: Khadar Tang MD MCV (RBC) [Entitic vol] 79.1 fL Low 82.6-102.9 [facility] Comment on above: Performed By: #### C MPX, CDP #### [address] [place] [address] Scenario Writer: Khadar Tang MD Monocytes (Bld) [#/Vol] 0.81 10*3/uL Normal 0.10-1.20 [facility] Comment on above: Performed By: #### C MPX, CDP #### [facility] [address] [place], [place] [id number] Scenario Writer: Khadar Tang MD Monocytes/100 WBC (Bld) 8 % Normal 3-12 [facility] Comment on above: Performed By: #### C MPX, CDP #### [facility] [address] [place], [place] [id number] Scenario Writer: Khadar Tang MD Neutrophil (Seg) 71 % High 36-65 [facility] Comment on above: Performed By: #### C MPX, CDP #### [facility] [address] [place], [place] [id number] Scenario Writer: Khadar Tang MD NRBC Automated 0.0 per 100 WBC Normal 0.0 [facility] Comment on above: Performed By: #### C MPX, CDP #### [facility] [address] [place] [address] Scenario Writer: Khadar Tang MD Platelet mean volume (Bld) [Entitic vol] 9.1 fL Normal 8.1-13.5 [facility] Comment on above: Performed By: #### C MPX, CDP #### [facility] [address] [place] [address] Scenario Writer: Khadar Tang MD Platelets (Bld) [#/Vol] 241 10*3/uL Normal 138-453 [facility] Comment on above: Performed By: #### C MPX, CDP #### [facility] [address] [place] [address] Scenario Writer: Khadar Tang MD RBC (Bld) [#/Vol] 3.39 10*6/uL Low 4.21-5.77 [facility] Comment on above: Performed By: #### C MPX, CDP #### [facility] [address] [place] [address] Scenario Writer: Khadar Tang MD WBC (Bld) [#/Vol] 10.9 10*3/uL Normal 3.5-11.3 [facility] Comment on above: Performed By: #### C MPX, CDP #### [facility] [address] [place] [address] Scenario Writer: Khadar Tang MD Cult,Woundon 06-27-2022 Cult,Wound Specimen Description .WOUND Special Requests LEG Direct Exam NO NEUTROPHILS SEEN NO ORGANISMS SEEN Culture NO GROWTH Report Status FINAL 06/27/2022 Normal [facility] Comment on above: Performed By: #### C MPX, CDP #### [facility] [address] [place] [address] Scenario Writer: Khadar Tang MD CBC auto differentialon 05-29 Absolute Eos # 0.63 High [facility] Absolute Immature Granulocyte 0.05 [facility] Absolute Lymph # 1.33 [facility] Absolute Pratt # 0.82 [facility] Basophils Absolute [facility] Basophils/100 WBC (Bld) 0 % 0 - 2 % [facility] Eosinophils/100 WBC (Bld) 7 % High 1 - 4 % [facility] Hematocrit (Bld) [Volume fraction] 24.4 % Low 40.7 - 50.3 % [facility] Hemoglobin (Bld) [Mass/Vol] 7.6 g/dL Low 13.0 - 17.0 g/dL [facility] Immature granulocytes/100 WBC (Bld) 1 % High 0 [facility] Interpretation and review of laboratory results Abnormal [facility] Lymphocytes/100 WBC (Bld) 14 % Low 24 - 43 % [facility] MCH (RBC) [Entitic mass] 23.8 pg Low 25.2 - 33.5 pg [facility] MCHC (RBC) [Mass/Vol] 31.1 g/dL 28.4 - 34.8 g/dL [facility] MCV (RBC) [Entitic vol] 76.3 fL Low 82.6 - 102.9 fL [facility] Monocytes/100 WBC (Bld) 9 % 3 - 12 % [facility] NRBC Automated 0.0 0.0 per 100 WBC [facility] Platelet distribution width (Bld) [Ratio] 16.0 % High 11.8 - 14.4 % [facility] Platelet mean volume (Bld) [Entitic vol] 8.8 fL 8.1 - 13.5 fL [facility] Platelets (Bld) [#/Vol] 205 10*3/uL [facility] RBC (Bld) [#/Vol] 3.20 10*6/uL Low 4.21 - 5.77 m/uL [facility] Segmented neutrophils/100 WBC (Bld) 69 % High 36 - 65 % [facility] Segs Absolute 6.49 [facility] WBC (Bld) [#/Vol] 9.3 10*3/uL [facility] CBC with Diffon 06-26-2022 Abs. Basophil <0.03 Normal 0.00-0.20 [facility] Comment on above: Performed By: #### C MPX, CDP #### [facility] [address] [place] [address] Dr. [place], [place] [id number] Scenario Writer: Khadar Tang MD Abs.Imm.Granulocyte 0.05 k/uL Normal 0.00-0.30 [facility] Comment on above: Performed By: #### C MPX, CDP #### [facility] [address] [place] [address] Scenario Writer: Khadar Tang MD Abs.Neutrophil (Seg) 6.49 k/uL Normal 1.50-8.10 [facility] Comment on above: Performed By: #### C MPX, CDP #### [facility] [address] [place] [address] [place] [address] Scenario Writer: Khadar Tang MD Basophils/100 WBC (Bld) 0 % Normal 0-2 [facility] Comment on above: Performed By: #### C MPX, CDP #### [facility] [address] [place] [address] [place] [address] Scenario Writer: Khadar Tang MD Eosinophils (Bld) [#/Vol] 0.63 10*3/uL High 0.00-0.44 [facility] Comment on above: Performed By: #### C MPX, CDP #### [address] [place] [address] Scenario Writer: Khadar Tang MD Eosinophils/100 WBC (Bld) 7 % High 1-4 [facility] Comment on above: Performed By: #### C MPX, CDP #### [address] [place] [address] Scenario Writer: Khadar Tang MD Erythrocyte distribution width (RBC) [Ratio] 16.0 % High 11.8-14.4 [facility] Comment on above: Performed By: #### C MPX, CDP #### [address] [place] [address] Scenario Writer: Khadar Tang MD Hematocrit (Bld) [Volume fraction] 24.4 % Low 40.7-50.3 [facility] Comment on above: Performed By: #### C MPX, CDP #### [address] [place] [address] Scenario Writer: Khadar Tang MD Hemoglobin (Bld) [Mass/Vol] 7.6 g/dL Low 13.0-17.0 [facility] Comment on above: Performed By: #### C MPX, CDP #### [address] [place] [address] Scenario Writer: Khadar Tagn MD Immature granulocytes/100 WBC (Bld) 1 % High 0 [facility] Comment on above: Performed By: #### C MPX, CDP #### [facility] [address] [place] [address] Scenario Writer: Khadar Tang MD Lymphocytes (Bld) [#/Vol] 1.33 10*3/uL Normal 1.10-3.70 [facility] Comment on above: Performed By: #### C MPX, CDP #### [facility] [address] [place] [address] [place] [address] Scenario Writer: Khadar Tang MD Lymphocytes/100 WBC (Bld) 14 % Low 24-43 [facility] Comment on above: Performed By: #### C MPX, CDP #### [address] [place], [place] [id number] Scenario Writer: Khadar Tang MD MCH (RBC) [Entitic mass] 23.8 pg Low 25.2-33.5 [facility] Comment on above: Performed By: #### C MPX, CDP #### [address] [place], [place] [id number] Scenario Writer: Khadar Tang MD MCHC (RBC) [Mass/Vol] 31.1 g/dL Normal 28.4-34.8 [facility] Comment on above: Performed By: #### C MPX, CDP #### [facility] [address] [place] [address] Dr. [place], [place] [id number] Scenario Writer: Khadar Tang MD MCV (RBC) [Entitic vol] 76.3 fL Low 82.6-102.9 [facility] Comment on above: Performed By: #### C MPX, CDP #### [address] [place] [address] Scenario Writer: Khadar Tang MD Monocytes (Bld) [#/Vol] 0.82 10*3/uL Normal 0.10-1.20 [facility] Comment on above: Performed By: #### C MPX, CDP #### [facility] [address] [place], [place] [id number] Scenario Writer: Khadar Tang MD Monocytes/100 WBC (Bld) 9 % Normal 3-12 [facility] Comment on above: Performed By: #### C MPX, CDP #### [facility] [address] [place], [facility] Scenario Writer: Khadar Tang MD Neutrophil (Seg) 69 % High 36-65 [facility] Comment on above: Performed By: #### C MPX, CDP #### [facility] [address] [place], [place] [id number] Scenario Writer: Khadar Tang MD NRBC Automated 0.0 per 100 WBC Normal 0.0 [facility] Comment on above: Performed By: #### C MPX, CDP #### [address] [place], [facility] Scenario Writer: Khadar Tang MD Platelet mean volume (Bld) [Entitic vol] 8.8 fL Normal 8.1-13.5 [facility] Comment on above: Performed By: #### C MPX, CDP #### [address] [place], [place] [id number] Scenario Writer: Khadar Tang MD Platelets (Bld) [#/Vol] 205 10*3/uL Normal 138-453 [facility] Comment on above: Performed By: #### C MPX, CDP #### [address] [place], [place] [id number] Scenario Writer: Khadar Tang MD RBC (Bld) [#/Vol] 3.20 10*6/uL Low 4.21-5.77 [facility] Comment on above: Performed By: #### C MPX, CDP #### [facility] [address] [place] [address] [place] [address] Scenario Writer: Khadar Tang MD WBC (Bld) [#/Vol] 9.3 10*3/uL Normal 3.5-11.3 [facility] Comment on above: Performed By: #### C MPX, CDP #### [facility] [address] [place] [address] Scenario Writer: Khadar Tang MD EKG Rhythm Stripon 3 rd [facility] Glucose, Whole Bloodon 06-26 Glucose [Mass/Vol] 95 mg/dL 74 - 100 mg/dL [facility] No Panel Informationon 06-26 No dictation [facility] Work Phone: [facility] Work Phone: Surgical Pathologyon 023 Surgical [...] SURGICAL PATHOLOGY CONSULTATION Patient Name: GANGA STINSON [facility] Rec: [id number] Path Number: [id number] [facility] [employer] ANATOMIC PATHOLOGY [address] [place] [phone] Normal [facility] Comment on above: Performed By: #### C MPX, CDP #### [facility] [address] [place] [address] Scenario Writer: Khadar Tang MD Blood occult stool #1on 05-29 Date, Stool #1 3 [facility] Comment on above: 30 23 Hemoglobin.gastrointe stinal spec 1 Ql (Stl) Negative NEGATIVE [facility] Time, Stool #1 1945 [facility] [facility] CBC auto differentialon 05-29 Absolute Eos # 0.63 High [facility] Absolute Immature Granulocyte 0.07 [facility] Absolute Lymph # 1.63 [facility] Absolute Pratt # 0.76 [facility] Basophils Absolute [facility] Basophils/100 WBC (Bld) 0 % 0 - 2 % [facility] Eosinophils/100 WBC (Bld) 7 % High 1 - 4 % [facility] Hematocrit (Bld) [Volume fraction] 24.6 % Low 40.7 - 50.3 % [facility] Hemoglobin (Bld) [Mass/Vol] 7.6 g/dL Low 13.0 - 17.0 g/dL [facility] Immature granulocytes/100 WBC (Bld) 1 % High 0 [facility] Interpretation and review of laboratory results Abnormal [facility] Lymphocytes/100 WBC (Bld) 19 % Low 24 - 43 % [facility] MCH (RBC) [Entitic mass] 23.7 pg Low 25.2 - 33.5 pg [facility] MCHC (RBC) [Mass/Vol] 30.9 g/dL 28.4 - 34.8 g/dL [facility] MCV (RBC) [Entitic vol] 76.6 fL Low 82.6 - 102.9 fL [facility] Monocytes/100 WBC (Bld) 9 % 3 - 12 % [facility] NRBC Automated 0.0 0.0 per 100 WBC [facility] Platelet distribution width (Bld) [Ratio] 15.9 % High 11.8 - 14.4 % [facility] Platelet mean volume (Bld) [Entitic vol] 8.9 fL 8.1 - 13.5 fL [facility] Platelets (Bld) [#/Vol] 223 10*3/uL [facility] RBC (Bld) [#/Vol] 3.21 10*6/uL Low 4.21 - 5.77 m/uL [facility] Segmented neutrophils/100 WBC (Bld) 64 % 36 - 65 % [facility] Segs Absolute 5.60 [facility] WBC (Bld) [#/Vol] 8.7 10*3/uL [facility] CBC with Diffon 06-25-2022 Abs. Basophil <0.03 Normal 0.00-0.20 [facility] Comment on above: Performed By: #### T ROPI #### [facility] [address] [place] [address] [place]. [place] [id number] Scenario Writer: Khadar Tang MD Abs.Imm.Granulocyte 0.07 k/uL Normal 0.00-0.30 [facility] Comment on above: Performed By: #### T ROPI #### [facility] [address] [place], [place] [address] Scenario Writer: Khadar Tang MD Abs.Neutrophil (Seg) 5.60 k/uL Normal 1.50-8.10 [facility] Comment on above: Performed By: #### T ROPI #### [address] [place] [id number] Scenario Writer: Khadar Tang MD Basophils/100 WBC (Bld) 0 % Normal 0-2 [facility] Comment on above: Performed By: #### T ROPI #### [facility] [address] [place], [facility] Scenario Writer: Khadar Tang MD Eosinophils (Bld) [#/Vol] 0.63 10*3/uL High 0.00-0.44 [facility] Comment on above: Performed By: #### T ROPI #### [facility] [address] [place] [address] Scenario Writer: Khadar Tang MD Eosinophils/100 WBC (Bld) 7 % High 1-4 [facility] Comment on above: Performed By: #### T ROPI #### [facility] [address] [place], [place] [id number] Scenario Writer: Khadar Tang MD Erythrocyte distribution width (RBC) [Ratio] 15.9 % High 11.8-14.4 [facility] Comment on above: Performed By: #### T ROPI #### [address] [place], [place] [id number] Scenario Writer: Khadar Tang MD Hematocrit (Bld) [Volume fraction] 24.6 % Low 40.7-50.3 [facility] Comment on above: Performed By: #### T ROPI #### [address] [place], [facility] Scenario Writer: Khadar Tang MD Hemoglobin (Bld) [Mass/Vol] 7.6 g/dL Low 13.0-17.0 [facility] Comment on above: Performed By: #### T ROPI #### [address] [place], [place] [address] Scenario Writer: Khadar Tang MD Immature granulocytes/100 WBC (Bld) 1 % High 0 [facility] Comment on above: Performed By: #### T ROPI #### [facility] [address] [place] [address] Dr. [place], [facility] Scenario Writer: Khadar Tang MD Lymphocytes (Bld) [#/Vol] 1.63 10*3/uL Normal 1.10-3.70 [facility] Comment on above: Performed By: #### T ROPI #### [address] [place], [place] [id number] Scenario Writer: Khaadr Tang MD Lymphocytes/100 WBC (Bld) 19 % Low 24-43 [facility] Comment on above: Performed By: #### T ROPI #### [facility] [address] [place], [facility] Scenario Writer: Khadar Tang MD MCH (RBC) [Entitic mass] 23.7 pg Low 25.2-33.5 [facility] Comment on above: Performed By: #### T ROPI #### [address] [place], [facility] Scenario Writer: Khadar Tang MD MCHC (RBC) [Mass/Vol] 30.9 g/dL Normal 28.4-34.8 [facility] Comment on above: Performed By: #### T ROPI #### [address] [place], [facility] Scenario Writer: Khadar Tang MD MCV (RBC) [Entitic vol] 76.6 fL Low 82.6-102.9 [facility] Comment on above: Performed By: #### T ROPI #### [address] [place], [facility] Scenario Writer: Khadar aTng MD Monocytes (Bld) [#/Vol] 0.76 10*3/uL Normal 0.10-1.20 [facility] Comment on above: Performed By: #### T ROPI #### [address] [place], [facility] Scenario Writer: Khadar Tang MD Monocytes/100 WBC (Bld) 9 % Normal 3-12 [facility] Comment on above: Performed By: #### T ROPI #### [facility] [address] [place] [address] Dr. [place], [facility] Scenario Writer: Khadar Tang MD Neutrophil (Seg) 64 % Normal 36-65 [facility] Comment on above: Performed By: #### T ROPI #### [facility] [address] [place] [address] Dr. [place], [facility] Scenario Writer: Khadar Tang MD NRBC Automated 0.0 per 100 WBC Normal 0.0 [facility] Comment on above: Performed By: #### T ROPI #### [facility] [address] [place], [place] [id number] Scenario Writer: Khadar Tang MD Platelet mean volume (Bld) [Entitic vol] 8.9 fL Normal 8.1-13.5 [facility] Comment on above: Performed By: #### T ROPI #### [facility] [address] [place], [place] [id number] Scenario Writer: Khadar Tang MD Platelets (Bld) [#/Vol] 223 10*3/uL Normal 138-453 [facility] Comment on above: Performed By: #### T ROPI #### [address] [place], [facility] Scenario Writer: Khadar Tang MD RBC (Bld) [#/Vol] 3.21 10*6/uL Low 4.21-5.77 [facility] Comment on above: Performed By: #### T ROPI #### [address] [place], [place] [id number] Scenario Writer: Khadar Tang MD WBC (Bld) [#/Vol] 8.7 10*3/uL Normal 3.5-11.3 [facility] Comment on above: Performed By: #### T ROPI #### [facility] [address] [place] [address] Dr. [place], [place] [id number] Scenario Writer: Khadar Tang MD Comp Metabolic Pr/rfx MGon 0 06-25-2022 Albumin [Mass/Vol] 2.8 g/dL Low 3.5-5.2 [facility] Comment on above: Performed By: #### T ROPI #### [facility] [address] [place] [address] Scenario Writer: Khadar Tang MD Albumin/Glob Ratio 0.7 Low 1.0-2.5 [facility] Comment on above: Performed By: #### T ROPI #### [facility] [address] [place], [place] [id number] Scenario Writer: Khadar Tang MD Alkaline Phos 75 U/L Normal 40-129 [facility] Comment on above: Performed By: #### T ROPI #### [facility] [address] [place], [place] [id number] Scenario Writer: Khadar Tang MD ALT [Catalytic activity/Vol] 9 U/L Normal 5-41 [facility] Comment on above: Performed By: #### T ROPI #### [facility] [address] [place], [place] [id number] Scenario Writer: Khadar Tang MD Anion gap [Moles/Vol] 6 mmol/L Low 9-17 [facility] Comment on above: Performed By: #### T ROPI #### [facility] [address] [place], [place] [id number] Scenario Writer: Khadar Tang MD AST [Catalytic activity/Vol] 10 U/L Normal <40 [facility] Comment on above: Performed By: #### T ROPI #### [facility] [address] [place], [place] [id number] Scenario Writer: Khadar Tang MD Bilirubin [Mass/Vol] 0.3 mg/dL Normal 0.3-1.2 [facility] Comment on above: Performed By: #### T ROPI #### [facility] [address] [place], [place] [id number] Scenario Writer: Khadar Tang MD BUN/CRE Ratio 20 Normal 9-20 [facility] Comment on above: Performed By: #### T ROPI #### [facility] [address] [place], [place] [id number] Scenario Writer: Khadar Tang MD Calcium [Mass/Vol] 8.7 mg/dL Normal 8.6-10.4 [facility] Comment on above: Performed By: #### T ROPI #### [facility] [address] [place], [place] [id number] Scenario Writer: Khadar Tang MD Chloride [Moles/Vol] 113 mmol/L High 98-107 [facility] Comment on above: Performed By: #### T ROPI #### [facility] [address] [place] [address] Scenario Writer: Khadar Tang MD CO2 [Moles/Vol] 20 mmol/L Normal 20-31 [facility] Comment on above: Performed By: #### T ROPI #### [facility] [address] [place], [place] [id number] Scenario Writer: Khadar Tang MD Creatinine [Mass/Vol] 0.97 mg/dL Normal 0.70-1.20 [facility] Comment on above: Performed By: #### T ROPI #### [facility] [address] [place] [address] Scenario Writer: Khadar Tang MD GFR/1.73 sq M.predicted among non-blacks MDRD (S/P/Bld) [Vol rate/Area] mL/min/{1.73_m2} Normal >60 [facility] Comment on above: Result Comment: [...] secretion. Performed By: #### T ROPI #### [facility] [address] [place] [address] Scenario Writer: Khadar Tang MD Glucose [Mass/Vol] 144 mg/dL High 70-99 [facility] Comment on above: Performed By: #### T ROPI #### [facility] [address] [place] [address] Scenario Writer: Khadar Tang MD Potassium [Moles/Vol] 4.5 mmol/L Normal 3.7-5.3 [facility] Comment on above: Performed By: #### T ROPI #### [facility] [address] [place], [place] [id number] Scenario Writer: Khadar Tang MD Protein [Mass/Vol] 6.7 g/dL Normal 6.4-8.3 [facility] Comment on above: Performed By: #### T ROPI #### [facility] [address] [place], [place] [id number] Scenario Writer: Khadar Tang MD Sodium [Moles/Vol] 139 mmol/L Normal 135-144 [facility] Comment on above: Performed By: #### T ROPI #### [facility] [address] [place] [address] Scenario Writer: Khadar Tang MD Urea nitrogen [Mass/Vol] 19 mg/dL Normal 8-23 [facility] Comment on above: Performed By: #### T ROPI #### [facility] [address] [place] [address] Scenario Writer: Khadar Tang MD Comprehensive Metabolic Pane l w/ Reflex to MGon 06-25-2022 Albumin [Mass/Vol] 2.8 g/dL Low 3.5 - 5.2 g/dL [facility] Albumin/Globulin [Mass ratio] 0.7 {ratio} Low 1.0 - 2.5 [facility] ALP [Catalytic activity/Vol] 75 U/L 40 - 129 U/L [facility] ALT [Catalytic activity/Vol] 9 U/L 5 - 41 U/L [facility] Anion gap [Moles/Vol] 6 mmol/L Low 9 - 17 mmol/L [facility] AST [Catalytic activity/Vol] 10 U/L NINF - 40 U/L [facility] Bilirubin [Mass/Vol] 0.3 mg/dL 0.3 - 1 .2 mg/dL [facility] Calcium [Mass/Vol] 8.7 mg/dL 8.6 - 10. 4 mg/dL [facility] Chloride [Moles/Vol] 113 mmol/L High 98 - 10 7 mmol/L [facility] CO2 [Moles/Vol] 20 mmol/L 20 - 31 mmol/L [facility] Creatinine [Mass/Vol] 0.97 mg/dL 0.70 - 1.20 mg/dL [facility] GFR/1.73 sq M.predicted MDRD (S/P/Bld) [Vol rate/Area] - PINF [facility] Comment on above: These results are [...] 144 mg/dL High 70 - 99 mg/dL [facility] Interpretation and review of laboratory results Abnormal [facility] Potassium [Moles/Vol] 4.5 mmol/L 3.7 - 5.3 mmol/L [facility] Protein [Mass/Vol] 6.7 g/dL 6.4 - 8.3 g/dL [facility] Sodium [Moles/Vol] 139 mmol/L 135 - 144 mmol/L [facility] Urea nitrogen [Mass/Vol] 19 mg/dL 8 - 23 mg/dL [facility] Urea nitrogen/Creatinine (Bld) [Mass ratio] 20 9 - 20 [facility] Cult,Woundon 06-25-2022 Cult,Wound Specimen Description .BUTTOCK Direct Exam FEW NEUTROPHILS MODERATE GRAM POSITIVE COCCI IN PAIRS MODERATE GRAM POSITIVE RODS Culture NORMAL SKIN ROBBIE Report Status FINAL 06/25/2022 [facility] Comment on above: Performed By: #### T ROPI #### [facility] [address] [place] [address] Scenario Writer: Khadar Tang MD EKG Rhythm Stripon 3 [facility] ml [facility] Occult Blood, Fecalon 2022 Occult Blood 1 Negative Normal NEG [facility] Comment on above: Performed By: #### C MPX, CDP #### [facility] [address] [place] [address] [place] [address] Scenario Writer: Khadar Tang MD Specimen 1 Date [facility] Comment on above: Result Comment: Performed By: #### C MPX, CDP #### [facility] [address] [place] [address] [place] [address] Scenario Writer: Khadar Tang MD Specimen 1 Time 1944 [facility] Comment on above: Performed By: #### C MPX, CDP #### [facility] [address] [place] [address] Dr. [place], [place] [id number] Scenario Writer: Khadar Tang MD Surgical Pathologyon 023 Surgical Pathology (NOTE) -- Diagnosis -- RIGHT ANKLE, FIBULAR MALLEOLUS, BONE, EXCISION: - BENIGN BONE WITH HYPOCELLULAR AND FOCALLY FIBROTIC MARROW. - BENIGN PERIOSTEAL TISSUE WITH REACTIVE FIBROSIS. - NEGATIVE FOR OSTEOMYELITIS AND NEOPLASIA. Dilan Salvador M.D. Electronically Signed Out sls/06/29/2022 Clinical Information Operative Findings: FIBULAR MALLEOLUS, RIGHT ANKLE tm Source of Specimen A: FIBULAR MALLEOLUS,RIGHT ANKLE Gross Description GANGA STINSONSAMINATARUN Received in formalin is a 0.8 x 0.2 x 0.1 cm pardo, firm tissue fragment. Totally embedded 1c, decal. tm Microscopic Description Microscopic examination performed. SURGICAL PATHOLOGY CONSULTATION Patient Name: GANGA STINSON [facility] Rec: [id number] Path Number: [id number] [facility] PATHOLOGISTS [facility] ANATOMIC PATHOLOGY [address] [place] [address]. [place], [place] [address] Normal [facility] Comment on above: Performed By: #### C RICHX, CDP #### [facility] [address] [place] [address] Scenario Writer: Khadar Tang MD TYPE AND SCREENon 06-25-2022 ABO/Rh Negative [facility] Arm Band Number [id number] [facility] Blood Bank Blood Product Expiration Date [id number] [facility] Blood Bank ISBT Product Blood Type 9500 [facility] Blood Bank Unit Type and Rh Negative [facility] Blood product type Nom (BPU) Leukocyte Reduced Red Cell [facility] Blood product unit ID (Dose) [#] [id number] [facility] Crossmatch Result COMPATIBLE [facility] Dispense Status TRANSFUSED [facility] Expiration Date 06/27/2022,2359 [facility] Product Code Blood Bank [id number] [facility] Transfusion Status OK TO TRANSFUSE B ON [facility] Unit Divison 0 [facility] Unit Issue Date/Time [id number] [facility] APTTon 06-24-2022 aPTT Coag (Bld) [Time] 35.6 s High 26.8-34.8 [facility] Comment on above: Result Comment: IV Heparin Therapy Range: 62.0-94.0 Performed By: #### C RICHX, CDP #### [facility] [address] [place] [address] Scenario Writer: Khadar Tang MD B12/Folate Panelon Cobalamin (Vitamin B12) [Mass/Vol] 446 pg/mL Normal 232-1245 [facility] Comment on above: Performed By: #### C MPX, CDP #### [facility] [address] [place] [address] Scenario Writer: Khadar Tang MD Folic Acid 8.2 ng/mL Normal >4.8 [facility] Comment on above: Performed By: #### C RICHX, CDP #### [facility] [address] [place] [address] Scenario Writer: Khadar Tang MD CBC auto differentialon 05-28 Absolute Eos # 0.46 High MAUD S [facility] Absolute Immature Granulocyte 0.07 [facility] Absolute Lymph # 1.52 [facility] Absolute Pratt # 0.53 [facility] Basophils (Bld) [#/Vol] 0.00 10*3/uL [facility] Hematocrit (Bld) [Volume fraction] 21.7 % Low 40.7 - 50.3 % [facility] Hemoglobin (Bld) [Mass/Vol] 6.6 g/dL Critically low 13.0 - 17.0 g/dL [facility] Interpretation and review of laboratory results Abnormal [facility] MCH (RBC) [Entitic mass] 23.4 pg Low 25.2 - 33.5 pg [facility] MCHC (RBC) [Mass/Vol] 30.4 g/dL 28.4 - 34.8 g/dL [facility] MCV (RBC) [Entitic vol] 77.0 fL Low 82.6 - 102.9 fL [facility] Morphology Álvaro (Bld) [Interp] HYPOCHROMIA PRESENT [facility] NRBC Automated 0.0 0.0 per 100 WBC [facility] Platelet distribution width (Bld) [Ratio] 16.2 % High 11.8 - 14.4 % [facility] Platelet mean volume (Bld) [Entitic vol] 8.9 fL 8.1 - 13.5 fL [facility] Platelets (Bld) [#/Vol] 208 10*3/uL [facility] RBC (Bld) [#/Vol] 2.82 10*6/uL Low 4.21 - 5.77 m/uL [facility] Segmented neutrophils/100 WBC (Bld) 61 % 36 - 65 % [facility] Segs Absolute 4.02 [facility] WBC (Bld) [#/Vol] 6.6 10*3/uL [facility] CBC with Diffon 06-24-2022 Abs. Basophil 0.00 k/uL Normal 0.0-0.2 [facility] Comment on above: Performed By: #### C MPX, CDP #### [facility] [address] [place] [address] Scenario Writer: Khadar Tang MD Abs.Imm.Granulocyte 0.07 k/uL Normal 0.00-0.30 [facility] Comment on above: Performed By: #### C MPX, CDP #### [facility] [address] [place] [address] Dr. [place], [place] [address] Scenario Writer: Khadar Tang MD Abs.Neutrophil (Seg) 4.02 k/uL Normal 1.50-8.10 [facility] Comment on above: Performed By: #### C MPX, CDP #### [address] [place] [address] [place] [address] Scenario Writer: Khadar Tang MD Eosinophils (Bld) [#/Vol] 0.46 10*3/uL High 0.00-0.44 [facility] Comment on above: Performed By: #### C MPX, CDP #### [facility] [address] [place] [address] Scenario Writer: Khadar Tang MD Lymphocytes (Bld) [#/Vol] 1.52 10*3/uL Normal 1.10-3.70 [facility] Comment on above: Performed By: #### C MPX, CDP #### [facility] [address] [place], [place] [id number] Scenario Writer: Khadar Tang MD Monocytes (Bld) [#/Vol] 0.53 10*3/uL Normal 0.10-1.20 [facility] Comment on above: Performed By: #### C MPX, CDP #### [facility] [address] [place], [place] 7445083 Scenario Writer: Khadar Tang MD Morphology Álvaro (Bld) [Interp] HYPOCHROMIA Normal [facility] Comment on above: Result Comment: PRES ENT Performed By: #### C MPX, CDP #### [facility] [address] [place], [place] [id number] Scenario Writer: Khadar Tang MD Neutrophil (Seg) 61 % Normal 36-65 [facility] Comment on above: Performed By: #### C MPX, CDP #### [address] [place], [place] [id number] Scenario Writer: Khadar Tang MD Erythrocyte distribution width (RBC) [Ratio] 16.2 % High 11.8-14.4 [facility] Comment on above: Performed By: #### C MPX, CDP #### [address] [place], [place] 5344283 Scenario Writer: Khadar Tang MD Hematocrit (Bld) [Volume fraction] 21.7 % Low 40.7-50.3 [facility] Comment on above: Performed By: #### C MPX, CDP #### [address] [place], [place] 2934683 Scenario Writer: Khadar Tang MD Hemoglobin (Bld) [Mass/Vol] 6.6 g/dL Critically low 13.0-17.0 [facility] Comment on above: Performed By: #### C MPX, CDP #### [address] [place], [place] 7882383 Scenario Writer: Khadar Tang MD MCH (RBC) [Entitic mass] 23.4 pg Low 25.2-33.5 [facility] Comment on above: Performed By: #### C MPX, CDP #### [facility] [address] [place], [facility] Scenario Writer: Khadar Tang MD MCHC (RBC) [Mass/Vol] 30.4 g/dL Normal 28.4-34.8 [facility] Comment on above: Performed By: #### C MPX, CDP #### [address] [place], [facility] Scenario Writer: Khadar Tang MD MCV (RBC) [Entitic vol] 77.0 fL Low 82.6-102.9 [facility] Comment on above: Performed By: #### C MPX, CDP #### [address] [place] [id number] Scenario Writer: Khadar Tang MD NRBC Automated 0.0 per 100 WBC Normal 0.0 [facility] Comment on above: Performed By: #### C MPX, CDP #### [address] [place], [place] [id number] Scenario Writer: Khadar Tang MD Platelet mean volume (Bld) [Entitic vol] 8.9 fL Normal 8.1-13.5 [facility] Comment on above: Performed By: #### C MPX, CDP #### [address] [place], [facility] Scenario Writer: Khadar Tang MD Platelets (Bld) [#/Vol] 208 10*3/uL Normal 138-453 [facility] Comment on above: Performed By: #### C MPX, CDP #### [address] [place] [address] [place] [address] Scenario Writer: Khadar Tang MD RBC (Bld) [#/Vol] 2.82 10*6/uL Low 4.21-5.77 [facility] Comment on above: Performed By: #### C MPX, CDP #### [address] [place], [place] 3918383 Scenario Writer: Khadar Tang MD WBC (Bld) [#/Vol] 6.6 10*3/uL Normal 3.5-11.3 [facility] Comment on above: Performed By: #### C MPX, CDP #### [address] [place], [place] 0957683 Scenario Writer: Khadar Tang MD Basophils/100 WBC (Bld) 0 % Normal 0-2 [facility] Comment on above: Performed By: #### C MPX, CDP #### [address] [place], [place] 3723483 Scenario Writer: Khadar Tang MD Eosinophils/100 WBC (Bld) 7 % High 1-4 [facility] Comment on above: Performed By: #### C MPX, CDP #### [address] [place], [place] 8239883 Scenario Writer: Khadar Tang MD Immature granulocytes/100 WBC (Bld) 1 % High 0 [facility] Comment on above: Performed By: #### C MPX, CDP #### [address] [place], [place] [id number] Scenario Writer: Khadar Tang MD Lymphocytes/100 WBC (Bld) 23 % Low 24-43 [facility] Comment on above: Performed By: #### C MPX, CDP #### [address] [place] [address] Scenario Writer: Khadar Tang MD Monocytes/100 WBC (Bld) 8 % Normal 3-12 [facility] Comment on above: Performed By: #### C MPX, CDP #### [address] [place] [address] Scenario Writer: Khadar Tang MD Comp Metabolic Pr/rfx MGon 0 - Albumin [Mass/Vol] 2.4 g/dL Low 3.5-5.2 [facility] Comment on above: Performed By: #### C MPX, CDP #### [facility] [address] [place] [address] Scenario Writer: Khadar Tang MD Albumin/Glob Ratio 0.6 Low 1.0-2.5 [facility] Comment on above: Performed By: #### C MPX, CDP #### [facility] [address] [place], [place] 8882983 Scenario Writer: Khadar Tang MD Alkaline Phos 75 U/L Normal 40-129 [facility] Comment on above: Performed By: #### C MPX, CDP #### [facility] [address] [place], [place] 8631683 Scenario Writer: Khadar Tang MD ALT [Catalytic activity/Vol] 9 U/L Normal 5-41 [facility] Comment on above: Performed By: #### C MPX, CDP #### [facility] [address] [place] [address] Dr. [place], [place] 0990883 Scenario Writer: Khadar Tang MD Anion gap [Moles/Vol] 7 mmol/L Low 9-17 [facility] Comment on above: Performed By: #### C MPX, CDP #### [facility] [address] [place], [place] 5535983 Scenario Writer: Khadar Tang MD AST [Catalytic activity/Vol] 11 U/L Normal <40 [facility] Comment on above: Performed By: #### C MPX, CDP #### [facility] [address] [place], [place] 1669183 Scenario Writer: Khadar Tang MD Bilirubin [Mass/Vol] mg/dL Low 0.3-1.2 [facility] Comment on above: Performed By: #### C MPX, CDP #### [facility] [address] [place] [address] Scenario Writer: Khadar Tang MD BUN/CRE Ratio 23 High 9-20 [facility] Comment on above: Performed By: #### C MPX, CDP #### [facility] [address] [place], [place] 7802583 Scenario Writer: Khadar Tang MD Calcium [Mass/Vol] 8.5 mg/dL Low 8.6-10.4 [facility] Comment on above: Performed By: #### C MPX, CDP #### [facility] [address] [place], [place] 0278983 Scenario Writer: Khadar Tang MD Chloride [Moles/Vol] 115 mmol/L High 98-107 [facility] Comment on above: Performed By: #### C MPX, CDP #### [facility] [address] [place], [place] [id number] Scenario Writer: Khadar Tang MD CO2 [Moles/Vol] 18 mmol/L Low 20-31 [facility] Comment on above: Performed By: #### C MPX, CDP #### [facility] [address] [place] [address] Scenario Writer: Khadar Tang MD Creatinine [Mass/Vol] 1.11 mg/dL Normal 0.70-1.20 [facility] Comment on above: Performed By: #### C MPX, CDP #### [facility] [address] [place] [address] Scenario Writer: Khadar Tang MD GFR/1.73 sq M.predicted among non-blacks MDRD (S/P/Bld) [Vol rate/Area] mL/min/{1.73_m2} Normal >60 [facility] Comment on above: Result Comment: [...] Performed By: #### C MPX, CDP #### [facility] [address] [place] [address] Scenario Writer: Khadar Tang MD Glucose [Mass/Vol] 137 mg/dL High 70-99 [facility] Comment on above: Performed By: #### C MPX, CDP #### [facility] [address] [place] [address] Scenario Writer: Khadar Tang MD Potassium [Moles/Vol] 4.9 mmol/L Normal 3.7-5.3 [facility] Comment on above: Performed By: #### C MPX, CDP #### [facility] [address] [place] [address] Dr. [place], [place] [id number] Scenario Writer: Khadar Tang MD Protein [Mass/Vol] 6.3 g/dL Low 6.4-8.3 [facility] Comment on above: Performed By: #### C MPX, CDP #### [facility] [address] [place] [address] Dr. [place], [place] 6157983 Scenario Writer: Khadar Tang MD Sodium [Moles/Vol] 140 mmol/L Normal 135-144 [facility] Comment on above: Performed By: #### C MPX, CDP #### [facility] [address] [place] [address] Scenario Writer: Khadar Tang MD Urea nitrogen [Mass/Vol] 26 mg/dL High 8-23 [facility] Comment on above: Performed By: #### C MPX, CDP #### [facility] [address] [place] [address] Dr. [place], [place] 9508783 Scenario Writer: Khadar Tang MD Comprehensive Metabolic Pane l w/ Reflex to MGon 06-24-2022 Albumin [Mass/Vol] 2.4 g/dL Low 3.5 - 5.2 g/dL [facility] Albumin/Globulin [Mass ratio] 0.6 {ratio} Low 1.0 - 2.5 [facility] ALP [Catalytic activity/Vol] 75 U/L 40 - 129 U/L [facility] ALT [Catalytic activity/Vol] 9 U/L 5 - 41 U/L [facility] Anion gap [Moles/Vol] 7 mmol/L Low 9 - 17 mmol/L [facility] AST [Catalytic activity/Vol] 11 U/L NINF - 40 U/L [facility] Bilirubin [Mass/Vol] mg/dL Low 0.3 - 1 .2 mg/dL [facility] [employer] Calcium [Mass/Vol] 8.5 mg/dL Low 8.6 - 10. 4 mg/dL [facility] Chloride [Moles/Vol] 115 mmol/L High 98 - 10 7 mmol/L [facility] CO2 [Moles/Vol] 18 mmol/L Low 20 - 31 mmol/L [facility] Creatinine [Mass/Vol] 1.11 mg/dL 0.70 - 1.20 mg/dL [facility] GFR/1.73 sq M.predicted MDRD (S/P/Bld) [Vol rate/Area] - PINF [facility] Comment on above: These results are [...] 137 mg/dL High 70 - 99 mg/dL [facility] Interpretation and review of laboratory results Abnormal [facility] [employer] Potassium [Moles/Vol] 4.9 mmol/L 3.7 - 5.3 mmol/L [facility] Protein [Mass/Vol] 6.3 g/dL Low 6.4 - 8.3 g/dL [employer] Sodium [Moles/Vol] 140 mmol/L 135 - 144 mmol/L [employer] Urea nitrogen [Mass/Vol] 26 mg/dL High 8 - 23 mg/dL [employer] Urea nitrogen/Creatinine (Bld) [Mass ratio] 23 High 9 - 20 [employer] [facility] Culture, Wound Aerobic Onlyo n 06-24-2022 Interpretation and review of laboratory results Abnormal [employer] Microorganism identified Cx Nom (Unsp spec) NORMAL SKIN ROBBIE [email or web address] [facility] Microorganism or agent identified Nom (Unsp spec) FEW NEUTROPHILS Abnormal [employer] Specimen Description .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 EKG 12 Leadon 06-24-2022 Atrial Rate 64 BPM [employer] Work Phone: P [place]mdel 51 degrees [employer] Work Phone: P-R Interval 174 ms [employer] Work Phone: Q-T Interval 394 ms [employer] Work Phone: QRS Duration 94 ms [employer] Work Phone: QTc Calculation (Bazett) 406 ms [employer] Work Phone: R [place] 20 degrees [employer] Work Phone: T [place] 22 degrees [employer] Work Phone: Ventricular Rate 64 BPM [facility] [facility] [employer] Work Phone: Normal sinus rhythm Inferior infarct , age undetermined Abnormal ECG When compared with ECG of 22-JUN-2022 17:28, Minimal criteria for Inferior infarct is now Present Confirmed by Michelle Noe MD ([id number]) on 06/24/2022 10:31:37 PM [facility] Michelle Noe MD - 06/24/2022 Normal sinus rhythm Inferior infarct , age undetermined Abnormal ECG When compared with ECG of 22-JUN-2022 17:28, Minimal criteria for Inferior infarct is now Present Confirmed by Michelle Noe MD ([id number]) on 06/24/2022 10:31:37 PM [facility] Work Phone: [facility] [employer] Work Phone: EKG Rhythm Stripon 3 [facility] ML [facility] Echocardiogram complete 2D w ith doppler with coloron 06-24-2022 Left ventricular Ejection fraction 60 [facility] Work Phone: LVEF MODALITY ECHO [facility] [employer] Work Phone: [facility] Transthoracic Echocardiography Report (TTE) Patient Name ALLOWAY Date of Study 06/24/2022 GANGA Evans Date of 1960 Gender Male Age 61 year(s) Race Room Number 0334 Height: 71 inch, 180.34 cm Corporate ID [id number] Weight: 252 pounds, 114.3 kg # Patient Acct [id number] BSA: 2.33 m^2 BMI: 35.15 kg/m^2 # MR # [id number] [employer]estyle Block Farmer Jeanette Clarke Interpreting Physician Michelle Noe Fellow Referring Nurse Shelly Mondragon, Practitioner LUMBER MARKER Interpreting Referring Physician Fellow Type of Study TTE procedure:2D Echocardiogram, M-Mode, Doppler, Color Doppler. Procedure Date Date: 06/24/2022 Start: 09:47 AM Study Location: [facility] Indications:Abnormal ECG. History / Tech. [...] - 06/24/2022 [facility] Transthoracic Echocardiography Report (TTE) Patient Name ALLOWAY Date of Study 06/24/2022 GANGA Evans Date of 1960 Gender Male Age 61 year(s) Race Room Number 0334 Height: 71 inch, 180.34 cm Corporate ID [id number] Weight: 252 pounds, 114.3 kg # Patient Acct [id number] BSA: 2.33 m^2 BMI: 35.15 kg/m^2 # MR # [id number] [employer] Jeanette Clarke Interpreting Physician Michelle Noe Fellow Referring Nurse Shelly Mondragon, Practitioner DOLLY Interpreting Referring Physician Fellow Type of Study TTE procedure:2D Echocardiogram, M-Mode, Doppler, Color Doppler. Procedure Date Date: 06/24/2022 Start: 09:47 AM Study Location: [facility] Indications:Abnormal ECG. History / Tech. [...] Wall E' velocity:0.13 m/s Lateral Wall E/E':9.8 [facility] Work Phone: [facility] Work Phone: Glucose, Whole Bloodon 06-24 Glucose [Mass/Vol] 114 mg/dL High 74 - 100 mg/dL [facility] Interpretation and review of laboratory results Abnormal [facility] Hemoglobin and Hematocriton 06-24-2022 Hematocrit (Bld) [Volume fraction] 25.1 % Low 40.7 - 50.3 % [facility] Hemoglobin (Bld) [Mass/Vol] 7.8 g/dL Low 13.0 - 17.0 g/dL [facility] Interpretation and review of laboratory results Abnormal [facility] Hgb/Hcton 06-24-2022 Hematocrit (Bld) [Volume fraction] 25.1 % Low 40.7-50.3 [facility] Comment on above: Performed By: #### C MPX, CDP #### [facility] [address] [place] [address] [place] [address] Scenario Writer: Khadar Tang MD Hemoglobin (Bld) [Mass/Vol] 7.8 g/dL Low 13.0-17.0 [facility] Comment on above: Performed By: #### C MPX, CDP #### [facility] [address] [place] [id number] Scenario Writer: Khadar Tang MD Iron Binding Cap.on 06-25-19 23 % Fe Saturation 19 % Low 20-55 [facility] Comment on above: Performed By: #### C MPX, CDP #### [facility] [address] [place] [address] Scenario Writer: Khadar Tang MD Iron [Mass/Vol] 33 ug/dL Low 59-158 [facility] Comment on above: Performed By: #### C MPX, CDP #### [facility] [address] [place] [address] Scenario Writer: Khadar Tang MD Total Fe Binding Cap 175 ug/dL Low 250-450 [facility] Comment on above: Performed By: #### C MPX, CDP #### [facility] [address] [place] [address] Scenario Writer: Khadar Tang MD Unbound Fe Bind Cap 142 ug/dL Normal 112-347 [facility] Comment on above: Performed By: #### C MPX, CDP #### [facility] [address] [place] [address] Scenario Writer: Khadar Tang MD Iron and TIBCon 06-24-2022 Interpretation and review of laboratory results Abnormal [facility] Iron [Mass/Vol] 33 ug/dL Low 59 - 158 ug/dL [facility] Iron binding capacity [Mass/Vol] 175 ug/dL Low 250 - 450 ug/dL [facility] Iron Saturation 19 % Low 20 - 55 % [facility] UIBC 142 ug/dL 112 - 347 ug/dL [facility] Laboratory - Microbiology an d Antimicrobial susceptibilityon 06-24-2022 Microorganism or agent identified Nom (Unsp spec) Positive Abnormal [facility] Lipid Panelon 06-24-2022 Cholesterol [Mass/Vol] 147 mg/dL NINF - 200 mg/dL [facility] Comment on above: Cholesterol Guidelines: <200 Desirable 200-240 Borderline >240 Undesirable Cholesterol in HDL [Mass/Vol] 28 mg/dL Low 40 - PINF mg/dL [facility] Comment on above: HDL Guidelines: <40 Undesirable 40-59 Borderline >59 Desirable Cholesterol in LDL [Mass/Vol] 98 mg/dL 0 - 130 mg/dL [facility] Comment on above: LDL Guidelines: <100 Desirable 100-129 Near to/above Desirable 130-159 Borderline >159 Undesirable Direct (measured) LDL and calculated LDL are not interchangeable tests. Cholesterol.total/Cho lesterol in HDL [Mass ratio] 5.3 {ratio} High NINF - 5 [facility] Interpretation and review of laboratory results Abnormal [facility] Triglyceride [Mass/Vol] 107 mg/dL NINF - 150 mg/dL [facility] Comment on above: Triglyceride Guidelines: <150 Desirable 150-199 Borderline 200-499 High >499 Very high Based on AHA Guidelines for fasting triglyceride, December 2011. [facility] Lipid Profileon 06-24-2022 Cholesterol [Mass/Vol] 147 mg/dL Normal <200 [facility] Comment on above: Result Comment: Cholesterol Guidelines: <200 Desirable 200-240 Borderline >240 Undesirable Performed By: #### T ROPI #### [facility] [address] [place] [address] Scenario Writer: Khadar Tang MD Cholesterol in HDL [Mass/Vol] 28 mg/dL Low >40 [facility] Comment on above: Result Comment: HDL Guidelines: <40 Undesirable 40-59 Borderline >59 Desirable Performed By: #### T ROPI #### [facility] [address] [place], [place] [address] Scenario Writer: Khadar Tang MD Cholesterol in LDL [Mass/Vol] 98 mg/dL Normal 0-130 [facility] Comment on above: Result Comment: LDL Guidelines: <100 Desirable 100-129 Near to/above Desirable 130-159 Borderline >159 Undesirable Direct (measured) LDL and calculated LDL are not interchangeable tests. Performed By: #### T ROPI #### [facility] [address] [place] [address] Scenario Writer: Khadar Tang MD Cholesterol.total/Cho lesterol in HDL [Mass ratio] 5.3 {ratio} High <5 [facility] Comment on above: Performed By: #### T ROPI #### [facility] [address] [place] [address] Scenario Writer: Khadar Tang MD Triglyceride [Mass/Vol] 107 mg/dL Normal <150 [facility] Comment on above: Result Comment: Triglyceride Guidelines: <150 Desirable 150-199 Borderline 200-499 High >499 Very high Based on AHA Guidelines for fasting triglyceride, December 2011. Performed By: #### T CINDYI #### [facility] [address] [place] [address] Scenario Writer: Khadar Tang MD PTon 06-24-2022 INR Coag (PPP) [Relative time] 1.1 {INR} Normal [facility] Comment on above: Result Comment: Therapeutic Range: Moderate Anticoagulant Intensity: INR = 2.0-3.0 High Anticoagulant Intensity: INR = 2.5-3.5 Performed By: #### C MPX, CDP #### [facility] [address] [place], [place] [id number] Scenario Writer: Khadar Tang MD PT Coag (PPP) [Time] 14.8 s Normal 11.9-14.8 [facility] Comment on above: Performed By: #### C MPX, CDP #### [facility] [address] [place], [place] [id number] Scenario Writer: Khadar Tang MD PTTon 06-24-2022 aPTT Coag (Bld) [Time] 35.6 s High [facility] Comment on above: IV Heparin Therapy Range: 62.0-94.0 Interpretation and review of laboratory results Abnormal [facility] Protime-INRon 06-24-2022 INR Coag (PPP) [Relative time] 1.1 {INR} [facility] Comment on above: Therapeutic Range: Moderate Anticoagulant Intensity: INR = 2.0-3.0 High Anticoagulant Intensity: INR = 2.5-3.5 PT Coag (PPP) [Time] 14.8 s [facility] Troponinon 06-24-2022 Troponin, High Sens 57 ng/L Critically high 0-22 [facility] Comment on above: Result Comment: High Sensitivity Troponin values cannot be compared with other Troponin methodologies. Performed By: #### C MPX, CDP #### [facility] [address] [place] [id number] Scenario Writer: Khadar Tang MD Interpretation and review of laboratory results Abnormal [facility] Troponin I.cardiac DL <= 0.01 ng/mL [Mass/Vol] 57 ng/L Critically high 0 - 22 ng/L [facility] Comment on above: High Sensitivity Tro ponin values cannot be compared with other Troponin methodologies. [facility] Troponin, High Sens 58 ng/L Critically high 0-22 [facility] Comment on above: Result Comment: High Sensitivity Troponin values cannot be compared with other Troponin methodologies. Performed By: #### T ROPI #### [facility] [address] [place] [id number] Scenario Writer: Khadar Tang MD Interpretation and review of laboratory results Abnormal [facility] Troponin I.cardiac DL <= 0.01 ng/mL [Mass/Vol] 58 ng/L Critically high 0 - 22 ng/L [facility] Comment on above: High Sensitivity Tro ponin values cannot be compared with other Troponin methodologies. [facility] Troponin, High Sens 59 ng/L Critically high 0-22 [facility] Comment on above: Result Comment: High Sensitivity Troponin values cannot be compared with other Troponin methodologies. Performed By: #### C MPX, CDP #### [facility] [address] [place] [id number] Scenario Writer: Khadar Tang MD Interpretation and review of laboratory results Abnormal [facility] Troponin I.cardiac DL <= 0.01 ng/mL [Mass/Vol] 59 ng/L Critically high 0 - 22 ng/L [facility] Comment on above: High Sensitivity Tro ponin values cannot be compared with other Troponin methodologies. [facility] Type + Screenon 06-24-2022 Type + Screen Sample Expiration 06/27/2022,2359 Arm Band Number [id number] ABO/Rh(D) A NEGATIVE Antibody Screen NEGATIVE Unit Number [id number] Blood Component Type Leukocyte Reduced Red Cell Unit Division 00 Status of Unit TRANSFUSED Transfusion Status OK TO TRANSFUSE Crossmatch Result COMPATIBLE Normal [facility] Comment on above: Performed By: #### C MPX, CDP #### [facility] [address] [place] [address] Scenario Writer: Khadar Tang MD Vitamin B12 & Folateon 06-24 Cobalamin (Vitamin B12) [Mass/Vol] 446 pg/mL 232 - 1245 pg/mL [facility] Folate [Mass/Vol] 8.2 ng/mL 4.8 - PINF ng/mL [facility] CBC auto differentialon 05-28 Absolute Eos # 0.65 High [facility] Absolute Immature Granulocyte 0.06 [facility] Absolute Lymph # 1.94 [facility] Absolute Pratt # 0.72 [facility] Basophils (Bld) [#/Vol] 0.04 10*3/uL [facility] Basophils/100 WBC (Bld) 0 % 0 - 2 % [facility] Eosinophils/100 WBC (Bld) 7 % High 1 - 4 % [facility] Hematocrit (Bld) [Volume fraction] 25.0 % Low 40.7 - 50.3 % [facility] Hemoglobin (Bld) [Mass/Vol] 7.5 g/dL Low 13.0 - 17.0 g/dL [facility] Immature granulocytes/100 WBC (Bld) 1 % High 0 [facility] Interpretation and review of laboratory results Abnormal [facility] Lymphocytes/100 WBC (Bld) 22 % Low 24 - 43 % [facility] MCH (RBC) [Entitic mass] 23.3 pg Low 25.2 - 33.5 pg [facility] MCHC (RBC) [Mass/Vol] 30.0 g/dL 28.4 - 34.8 g/dL [facility] MCV (RBC) [Entitic vol] 77.6 fL Low 82.6 - 102.9 fL [facility] Monocytes/100 WBC (Bld) 8 % 3 - 12 % [facility] NRBC Automated 0.0 0.0 per 100 WBC [facility] Platelet distribution width (Bld) [Ratio] 16.4 % High 11.8 - 14.4 % [facility] Platelet mean volume (Bld) [Entitic vol] 8.7 fL 8.1 - 13.5 fL [facility] Platelets (Bld) [#/Vol] 263 10*3/uL [facility] RBC (Bld) [#/Vol] 3.22 10*6/uL Low 4.21 - 5.77 m/uL [facility] Segmented neutrophils/100 WBC (Bld) 62 % 36 - 65 % [facility] Segs Absolute 5.55 [facility] WBC (Bld) [#/Vol] 9.0 10*3/uL [facility] CBC with Diffon 06-23-2022 Abs. Basophil 0.04 k/uL Normal 0.00-0.20 [facility] Comment on above: Performed By: #### C MPX, CDP #### [facility] [address] [place] [address] [place] [address] Scenario Writer: Khadar Tang MD Abs.Imm.Granulocyte 0.06 k/uL Normal 0.00-0.30 [facility] Comment on above: Performed By: #### C MPX, CDP #### [address] [place], [place] [id number] Scenario Writer: Khadar Tang MD Abs.Neutrophil (Seg) 5.55 k/uL Normal 1.50-8.10 [facility] Comment on above: Performed By: #### C MPX, CDP #### [facility] [address] [place] [address] Dr. [place], [place] [id number] Scenario Writer: Khadar Tang MD Basophils/100 WBC (Bld) 0 % Normal 0-2 [facility] Comment on above: Performed By: #### C MPX, CDP #### [facility] [address] [place] [address] [place] [address] Scenario Writer: Khadar Tang MD Eosinophils (Bld) [#/Vol] 0.65 10*3/uL High 0.00-0.44 [facility] Comment on above: Performed By: #### C MPX, CDP #### [address] [place] [address] Scenario Writer: Khadar Tang MD Eosinophils/100 WBC (Bld) 7 % High 1-4 [facility] Comment on above: Performed By: #### C MPX, CDP #### [address] [place], [place] [id number] Scenario Writer: Khadar Tang MD Erythrocyte distribution width (RBC) [Ratio] 16.4 % High 11.8-14.4 [facility] Comment on above: Performed By: #### C MPX, CDP #### [address] [place] [address] Scenario Writer: Khadar Tang MD Hematocrit (Bld) [Volume fraction] 25.0 % Low 40.7-50.3 [facility] Comment on above: Performed By: #### C MPX, CDP #### [address] [place], [place] [id number] Scenario Writer: Khadar Tang MD Hemoglobin (Bld) [Mass/Vol] 7.5 g/dL Low 13.0-17.0 [facility] Comment on above: Performed By: #### C MPX, CDP #### [facility] [address] [place] [address] [address]. [place], [place] [id number] Scenario Writer: Khadar Tang MD Immature granulocytes/100 WBC (Bld) 1 % High 0 [facility] Comment on above: Performed By: #### C MPX, CDP #### [address] [place] [address] Scenario Writer: Khadar Tang MD Lymphocytes (Bld) [#/Vol] 1.94 10*3/uL Normal 1.10-3.70 [facility] Comment on above: Performed By: #### C MPX, CDP #### [facility] [address] [place], [place] [id number] Scenario Writer: Khadar Tang MD Lymphocytes/100 WBC (Bld) 22 % Low 24-43 [facility] Comment on above: Performed By: #### C MPX, CDP #### [facility] [address] [place], [id number] Scenario Writer: Khadar Tang MD MCH (RBC) [Entitic mass] 23.3 pg Low 25.2-33.5 [facility] Comment on above: Performed By: #### C MPX, CDP #### [facility] [address] [place], [id number] Scenario Writer: Khadar Tang MD MCHC (RBC) [Mass/Vol] 30.0 g/dL Normal 28.4-34.8 [facility] Comment on above: Performed By: #### C MPX, CDP #### [address] [place], [place] [id number] Scenario Writer: Khadar Tang MD MCV (RBC) [Entitic vol] 77.6 fL Low 82.6-102.9 [facility] Comment on above: Performed By: #### C MPX, CDP #### [facility] [address] [place] [address] Dr. [place], [id number] Scenario Writer: Khadar Tang MD Monocytes (Bld) [#/Vol] 0.72 10*3/uL Normal 0.10-1.20 [facility] Comment on above: Performed By: #### C MPX, CDP #### [facility] [address] [place] [address] Scenario Writer: Khadar Tang MD Monocytes/100 WBC (Bld) 8 % Normal 3-12 [facility] Comment on above: Performed By: #### C MPX, CDP #### [facility] [address] [place], [place] [id number] Scenario Writer: Khadar Tang MD Neutrophil (Seg) 62 % Normal 36-65 [facility] Comment on above: Performed By: #### C MPX, CDP #### [facility] [address] [place], [place] [id number] Scenario Writer: Khadar Tang MD NRBC Automated 0.0 per 100 WBC Normal 0.0 [facility] Comment on above: Performed By: #### C MPX, CDP #### [facility] [address] [place], [place] [id number] Scenario Writer: Khadar Tang MD Platelet mean volume (Bld) [Entitic vol] 8.7 fL Normal 8.1-13.5 [facility] Comment on above: Performed By: #### C MPX, CDP #### [facility] [address] [place], [place] [id number] Scenario Writer: Khadar Tang MD Platelets (Bld) [#/Vol] 263 10*3/uL Normal 138-453 [facility] Comment on above: Performed By: #### C MPX, CDP #### [address] [place], [place] [id number] Scenario Writer: Khadar Tang MD RBC (Bld) [#/Vol] 3.22 10*6/uL Low 4.21-5.77 [facility] Comment on above: Performed By: #### C MPX, CDP #### [address] [place], [place] [id number] Scenario Writer: Khadar Tang MD WBC (Bld) [#/Vol] 9.0 10*3/uL Normal 3.5-11.3 [facility] Comment on above: Performed By: #### C MPX, CDP #### [facility] [address] [place], [place] [id number] Scenario Writer: Khadar Tang MD Comp Metabolic Pr/rfx MGon 0 06-23-2022 Albumin [Mass/Vol] 2.9 g/dL Low 3.5-5.2 [facility] Comment on above: Performed By: #### C MPX, CDP #### [facility] [address] [place], [place] [id number] Scenario Writer: Khadar Tang MD Albumin/Glob Ratio 0.7 Low 1.0-2.5 [facility] Comment on above: Performed By: #### C MPX, CDP #### [facility] [address] [place], [place] [id number] Scenario Writer: Khadar Tang MD Alkaline Phos 89 U/L Normal 40-129 [facility] Comment on above: Performed By: #### C MPX, CDP #### [facility] [address] [place] [address] Dr. [place], [place] [id number] Scenario Writer: Khadar Tang MD ALT [Catalytic activity/Vol] 11 U/L Normal 5-41 [facility] Comment on above: Performed By: #### C MPX, CDP #### [facility] [address] [place] [address] Dr. [place], [place] 3333883 Scenario Writer: Khadar Tang MD Anion gap [Moles/Vol] 8 mmol/L Low 9-17 [facility] Comment on above: Performed By: #### C MPX, CDP #### [facility] [address] [place], [place] [id number] Scenario Writer: Khadar Tang MD AST [Catalytic activity/Vol] 12 U/L Normal <40 [facility] Comment on above: Performed By: #### C MPX, CDP #### [facility] [address] [place], [place] [id number] Scenario Writer: Khadar Tang MD Bilirubin [Mass/Vol] 0.2 mg/dL Low 0.3-1.2 [facility] Comment on above: Performed By: #### C MPX, CDP #### [facility] [address] [place], [place] 4053583 Scenario Writer: Khadar Tang MD BUN/CRE Ratio 25 High 9-20 [facility] Comment on above: Performed By: #### C MPX, CDP #### [facility] [address] [place], [place] 5133583 Scenario Writer: Khadar Tang MD Calcium [Mass/Vol] 9.0 mg/dL Normal 8.6-10.4 [facility] Comment on above: Performed By: #### C MPX, CDP #### [facility] [address] [place], [place] 8851483 Scenario Writer: Khadar Tang MD Chloride [Moles/Vol] 115 mmol/L High 98-107 [facility] Comment on above: Performed By: #### C MPX, CDP #### [facility] [address] [place], [place] [id number] Scenario Writer: Khadar Tang MD CO2 [Moles/Vol] 17 mmol/L Low 20-31 [facility] Comment on above: Performed By: #### C MPX, CDP #### [facility] [address] [place], [place] 0382783 Scenario Writer: Khadar Tang MD Creatinine [Mass/Vol] 1.55 mg/dL High 0.70-1.20 [facility] Comment on above: Performed By: #### C MPX, CDP #### [facility] [address] [place] [address] Scenario Writer: Khadar Tang MD GFR/1.73 sq M.predicted among non-blacks MDRD (S/P/Bld) [Vol rate/Area] 51 mL/min/{1.73_m2} Low >60 [facility] Comment on above: Result Comment: [...] Performed By: #### C MPX, CDP #### [facility] [address] [place] [address] [place] [address] Scenario Writer: Khadar Tang MD Glucose [Mass/Vol] 119 mg/dL High 70-99 [facility] Comment on above: Performed By: #### C MPX, CDP #### [address] [place], [place] 7584083 Scenario Writer: Khadar Tang MD Potassium [Moles/Vol] 5.4 mmol/L High 3.7-5.3 [facility] Comment on above: Performed By: #### C MPX, CDP #### [address] [place], [place] [id number] Scenario Writer: Khadar Tang MD Protein [Mass/Vol] 7.1 g/dL Normal 6.4-8.3 [facility] Comment on above: Performed By: #### C MPX, CDP #### [address] [place], [place] 9982283 Scenario Writer: Khadar Tang MD Sodium [Moles/Vol] 140 mmol/L Normal 135-144 [facility] Comment on above: Performed By: #### C MPX, CDP #### [facility] [address] [place] [address] [place] [address] Scenario Writer: Khadar Tang MD Urea nitrogen [Mass/Vol] 38 mg/dL High 8-23 [facility] Comment on above: Performed By: #### C MPX, CDP #### [address] [place] [address] Scenario Writer: Khadar Tang MD Comprehensive Metabolic Pane l w/ Reflex to MGon 06-23-2022 Albumin [Mass/Vol] 2.9 g/dL Low 3.5 - 5.2 g/dL [facility] Albumin/Globulin [Mass ratio] 0.7 {ratio} Low 1.0 - 2.5 [facility] ALP [Catalytic activity/Vol] 89 U/L 40 - 129 U/L [facility] ALT [Catalytic activity/Vol] 11 U/L 5 - 41 U/L [facility] Anion gap [Moles/Vol] 8 mmol/L Low 9 - 17 mmol/L [facility] AST [Catalytic activity/Vol] 12 U/L NINF - 40 U/L [facility] Bilirubin [Mass/Vol] 0.2 mg/dL Low 0.3 - 1 .2 mg/dL [facility] Calcium [Mass/Vol] 9.0 mg/dL 8.6 - 10. 4 mg/dL [facility] Chloride [Moles/Vol] 115 mmol/L High 98 - 10 7 mmol/L [facility] CO2 [Moles/Vol] 17 mmol/L Low 20 - 31 mmol/L [facility] Creatinine [Mass/Vol] 1.55 mg/dL High 0.70 - 1.20 mg/dL [facility] GFR/1.73 sq M.predicted MDRD (S/P/Bld) [Vol rate/Area] 51 mL/min/{1.73_m2} Low - PINF [facility] Comment on above: These results are [...] 119 mg/dL High 70 - 99 mg/dL [facility]BL[facility] Interpretation and review of laboratory results Abnormal [facility] Potassium [Moles/Vol] 5.4 mmol/L High 3.7 - 5.3 mmol/L [employer] Protein [Mass/Vol] 7.1 g/dL 6.4 - 8.3 g/dL [employer] Sodium [Moles/Vol] 140 mmol/L 135 - 144 mmol/L [employer] Urea nitrogen [Mass/Vol] 38 mg/dL High 8 - 23 mg/dL [employer] Urea nitrogen/Creatinine (Bld) [Mass ratio] 25 High 9 - 20 [employer] EKG 12 LeadOrdered By: Michelle Tellez hmad on 06-23-2022 Atrial Rate 60 BPM [employer] Work Phone: P [place] 55 degrees [employer] Work Phone: P-R Interval 182 ms [employer] Work Phone: Q-T Interval 388 ms [employer] Work Phone: QRS Duration 88 ms [employer] Work Phone: QTc Calculation (Bazett) 388 ms [employer] Work Phone: R [place] 15 degrees [employer] Work Phone: T [place] 40 degrees [employer] Work Phone: Ventricular Rate 60 BPM [employer] [facility] Work Phone: [employer] Work Phone: EKG 12 Leadon 06-23-2022 Poor [...] Noe MD ([id number]) on 06/23/2022 3:18:16 PM [facility] Michelle Noe MD - 06/23/2022 Poor data quality, interpretation may be adversely affected Normal sinus rhythm Normal ECG When compared with ECG of 22-JUN-2022 13:14, (unconfirmed) Borderline criteria for Anterolateral infarct are no longer Present Criteria for Inferior infarct are no longer Present T wave inversion no longer evident in Inferior leads Confirmed by Michelle Noe MD ([id number]) on 06/23/2022 3:18:16 PM [facility] Work Phone: EKG Rhythm Stripon 3 [facility] Glucose, Whole Bloodon 06-23 Glucose [Mass/Vol] 230 mg/dL High 74 - 100 mg/dL [facility] Interpretation and review of laboratory results Abnormal [facility] Urinalysison 06-23-2022 Bilirubin Urine Negative [facility] Color, UA Yellow Yellow [facility] Glucose Auto test strip (U) [Mass/Vol] Negative NEGATIVE [facility] Ketones (U) [Mass/Vol] Negative NEGATIVE [facility] Leukocyte esterase Auto test strip Ql (U) Negative NEGATIVE [facility] Nitrite Auto test strip Ql (U) Negative NEGATIVE [facility] Protein (U) [Mass/Vol] 6.0 mg/dL 5.0 - 9.0 [facility] Protein (U) [Mass/Vol] Negative NEGATIVE [facility] Specific [place], UA 1.020 1.010 - 1.020 [facility] Turbidity UA Clear Clear [facility] Urine Hgb Negative NEGATIVE [facility] Urobilinogen, Urine Normal Normal [facility] Urinalysis, Routineon 2022 Bilirubin, SemiQt,Ur Negative Normal NEG [facility] Comment on above: Performed By: #### U A #### [facility] [address] [place] [address] Scenario Writer: Khadar Tang MD Blood, Urine Negative Normal NEG [facility] Comment on above: Performed By: #### U A #### [facility] [address] [place] [address] Dr. [place], [place] [id number] Scenario Writer: Khadar Tang MD Clarity (U) Clear Normal CLEAR [facility] Comment on above: Performed By: #### U A #### [facility] [address] [place] [address] Dr. [place], [place] [id number] Scenario Writer: Khadar Tang MD Color (U) Yellow Normal YEL [facility] Comment on above: Performed By: #### U A #### [facility] [address] [place] [address] Dr. [place], [place] [id number] Scenario Writer: Khadar Tang MD Glucose Ql (U) Negative Normal NEG [facility] Comment on above: Performed By: #### U A #### [facility] [address] [place] [address] Dr. [place], [place] [id number] Scenario Writer: Khadar Tang MD Ketones Ql (U) Negative Normal NEG [facility] in [facility] Comment on above: Performed By: #### U A #### [facility] [address] [place] [address] Dr. [place], [place] [id number] Scenario Writer: Khadar Tang MD Leukocyte esterase Test strip Ql (U) Negative Normal NEG [facility] Comment on above: Performed By: #### U A #### [facility] [address] [place] [address] Dr. [place], [place] [id number] Scenario Writer: Khadar Tang MD Nitrite,Ur Negative Normal NEG [facility] Comment on above: Performed By: #### U A #### [facility] [address] [place] [address] Dr. [place], [place] [id number] Scenario Writer: Khadar Tang MD PH,Ur 6.0 Normal 5.0-9.0 [facility] Comment on above: Performed By: #### U A #### [facility] [address] [place] [address] Dr. [place], [place] [id number] Scenario Writer: Khadar Tang MD Protein Ql (U) Negative Normal NEG [facility] Comment on above: Performed By: #### U A #### [facility] [address] [place] [address] Scenario Writer: Khadar Tang MD Spec. [place],Ur 1.020 Normal 1.010-1.02 0 [facility] Comment on above: Performed By: #### U A #### [facility] [address] [place] [address] Scenario Writer: Khadar Tang MD Urobilinogen,Ur Normal Normal NORM [facility] Comment on above: Performed By: #### U A #### [facility] [address] [place] [address] Scenario Writer: Khadar Tang MD XR ANKLE RIGHT (MIN [...] Derrick Squires MD 06/23/22 Final result Normal [facility] 1. Nonspecific diffu se subcutaneous edema. 2. Periostitis at the lateral aspect of the fibula distally. There was osteomyelitis in this region previously. This could reflect chronic osteomyelitis. Elsewhere, there is no subcutaneous air or evidence of osteomyelitis. PN RIS CONSOLIDATED EXAMINATION: THREE XRAY VIEWS OF [...] lesion is noted. Calcaneal spurring appears unchanged. RUST Derrick Herrera MD - 06/23/2022 EXAMINATION: THREE [...] no subcutaneous air or evidence of osteomyelitis. [employer] Phone: Radiology Study observation (narrative) [employer] Phone: XR ANKLE RIGHT (MIN 3 VIEWS) Ordered By: Derrick Squires on 06-23-2022 [employer] Phone: Basic Metabolic Panelon 05-28 Anion gap [Moles/Vol] 9 mmol/L 9 - 17 mmol/L [employer] Calcium [Mass/Vol] 9.5 mg/dL 8.6 - 10. 4 mg/dL [employer] Chloride [Moles/Vol] 112 mmol/L High 98 - 10 7 mmol/L [employer] CO2 [Moles/Vol] 17 mmol/L Low 20 - 31 mmol/L [employer] Creatinine [Mass/Vol] 2 mg/dL High 0.70 - 1.20 mg/dL [facility] GFR/1.73 sq M.predicted MDRD (S/P/Bld) [Vol rate/Area] 38 mL/min/{1.73_m2} Low - PINF [facility] Comment on above: These results are [...] 137 mg/dL High 70 - 99 mg/dL [facility] Interpretation and review of laboratory results Abnormal [facility] Potassium [Moles/Vol] 6.1 mmol/L Critically high 3.7 - 5.3 mmol/L [facility] Sodium [Moles/Vol] 138 mmol/L 135 - 144 mmol/L [facility] Urea nitrogen [Mass/Vol] 45 mg/dL High 8 - 23 mg/dL [facility] Urea nitrogen/Creatinine (Bld) [Mass ratio] 23 High 9 - 20 [facility] Basic Metabolic Profon 06-22 Potassium [Moles/Vol] 6.1 mmol/L Critically high 3.7-5.3 [facility] Comment on above: Performed By: #### T CINDYI #### [facility] [address] [place] [address] Scenario Writer: Khadar Tang MD Anion gap [Moles/Vol] 9 mmol/L Normal 9-17 [facility] Comment on above: Performed By: #### T CINDYI #### [facility] [address] [place] [address] Scenario Writer: Khadar Tang MD BUN/CRE Ratio 23 High 9-20 [facility] Comment on above: Performed By: #### T CINDYI #### [facility] [address] [place] [address] Scenario Writer: Khadar Tang MD Calcium [Mass/Vol] 9.5 mg/dL Normal 8.6-10.4 [facility] Comment on above: Performed By: #### T ROPI #### [facility] [address] [place], [place] [id number] Scenario Writer: Khadar Tang MD Chloride [Moles/Vol] 112 mmol/L High 98-107 [facility] Comment on above: Performed By: #### T ROPI #### [facility] [address] [place], [place] [id number] Scenario Writer: Khadar Tang MD CO2 [Moles/Vol] 17 mmol/L Low 20-31 [facility] Comment on above: Performed By: #### T ROPI #### [facility] [address] [place], [place] [id number] Scenario Writer: Khadar Tang MD Creatinine [Mass/Vol] 2.00 mg/dL High 0.70-1.20 [facility] Comment on above: Performed By: #### T ROPI #### [address] [place] [address] [place] [address] Scenario Writer: Khadar Tang MD GFR/1.73 sq M.predicted among non-blacks MDRD (S/P/Bld) [Vol rate/Area] 38 mL/min/{1.73_m2} Low >60 [facility] Comment on above: Result Comment: [...] secretion. Performed By: #### T ROPI #### [facility] [address] [place], [place] [id number] Scenario Writer: Khadar Tang MD Glucose [Mass/Vol] 137 mg/dL High 70-99 [facility] Comment on above: Performed By: #### T ROPI #### [facility] [address] [place], [place] [id number] Scenario Writer: Khadar Tang MD Sodium [Moles/Vol] 138 mmol/L Normal 135-144 [facility] Comment on above: Performed By: #### T ROPI #### [facility] [address] [place], [place] [id number] Scenario Writer: Khadar Tang MD Urea nitrogen [Mass/Vol] 45 mg/dL High 8-23 [facility] Comment on above: Performed By: #### T ROPI #### [facility] [address] [place], [place] [id number] Scenario Writer: Khadar Tang MD CBC with Auto Differentialon 06-22-2022 Absolute Eos # 0.86 High [facility] Absolute Immature Granulocyte 0.09 [facility] # 1.97 [facility] Absolute Pratt # 0.88 [facility] Basophils (Bld) [#/Vol] 0.05 10*3/uL [facility] Basophils/100 WBC (Bld) 0 % 0 - 2 % [facility] Eosinophils/100 WBC (Bld) 7 % High 1 - 4 % [facility] Hematocrit (Bld) [Volume fraction] 27.6 % Low 40.7 - 50.3 % [facility] Hemoglobin (Bld) [Mass/Vol] 8.3 g/dL Low 13.0 - 17.0 g/dL [facility] Immature granulocytes/100 WBC (Bld) 1 % High 0 [facility] Interpretation and review of laboratory results Abnormal [facility] Lymphocytes/100 WBC (Bld) 15 % Low 24 - 43 % [facility] MCH (RBC) [Entitic mass] 23.3 pg Low 25.2 - 33.5 pg [facility] MCHC (RBC) [Mass/Vol] 30.1 g/dL 28.4 - 34.8 g/dL [facility] MCV (RBC) [Entitic vol] 77.5 fL Low 82.6 - 102.9 fL [facility] Monocytes/100 WBC (Bld) 7 % 3 - 12 % [facility] NRBC Automated 0.0 0.0 per 100 WBC [facility] Platelet distribution width (Bld) [Ratio] 16.2 % High 11.8 - 14.4 % [facility] Platelet mean volume (Bld) [Entitic vol] 8.6 fL 8.1 - 13.5 fL [facility] Platelets (Bld) [#/Vol] 338 10*3/uL [facility] RBC (Bld) [#/Vol] 3.56 10*6/uL Low 4.21 - 5.77 m/uL [facility] Segmented neutrophils/100 WBC (Bld) 70 % High 36 - 65 % [facility] Segs Absolute 8.91 High [facility] WBC (Bld) [#/Vol] 12.8 10*3/uL High [place] [facility] Absolute Eos # 0.84 High [facility] Absolute Immature Granulocyte 0.06 [facility] Absolute Lymph # 1.69 [facility] Absolute Pratt # 0.82 [facility] Basophils (Bld) [#/Vol] 0.04 10*3/uL [facility] Basophils/100 WBC (Bld) 0 % 0 - 2 % [facility] Eosinophils/100 WBC (Bld) 7 % High 1 - 4 % [facility] Hematocrit (Bld) [Volume fraction] 27.1 % Low 40.7 - 50.3 % [facility] Hemoglobin (Bld) [Mass/Vol] 8.7 g/dL Low 13.0 - 17.0 g/dL [facility] Immature granulocytes/100 WBC (Bld) 1 % High 0 [facility] Interpretation and review of laboratory results Abnormal [facility] Lymphocytes/100 WBC (Bld) 14 % Low 24 - 43 % [facility] MCH (RBC) [Entitic mass] 25.3 pg 25.2 - 33.5 pg [facility] MCHC (RBC) [Mass/Vol] 32.1 g/dL 28.4 - 34.8 g/dL [facility] MCV (RBC) [Entitic vol] 78.8 fL Low 82.6 - 102.9 fL [facility] Monocytes/100 WBC (Bld) 7 % 3 - 12 % [facility] NRBC Automated 0.0 0.0 per 100 WBC [facility] Platelet distribution width (Bld) [Ratio] 16.4 % High 11.8 - 14.4 % [facility] Platelet mean volume (Bld) [Entitic vol] 9.4 fL 8.1 - 13.5 fL [facility] Platelets (Bld) [#/Vol] 345 10*3/uL [facility] RBC (Bld) [#/Vol] 3.44 10*6/uL Low 4.21 - 5.77 m/uL [facility] Segmented neutrophils/100 WBC (Bld) 71 % High 36 - 65 % [facility] Segs Absolute 9.06 High [facility] WBC (Bld) [#/Vol] 12.5 10*3/uL High [facility] CBC with Diffon 06-22-2022 Abs. Basophil 0.05 k/uL Normal 0.00-0.20 [facility] Comment on above: Performed By: #### C DP, MG, CP #### [facility] [address] [place] [address] Scenario Writer: Khadar Tang MD Abs.Imm.Granulocyte 0.09 k/uL Normal 0.00-0.30 [facility] Comment on above: Performed By: #### C DP, MG, CP #### [facility] [address] [place] [address] Scenario Writer: Khadar Tang MD Abs.Neutrophil (Seg) 8.91 k/uL High 1.50-8.10 [facility] Comment on above: Performed By: #### C DP MG, CP #### [address] [place] [place] [address] Scenario Writer: Khadar Tang MD Basophils/100 WBC (Bld) 0 % Normal 0-2 [facility] Comment on above: Performed By: #### C DP, MG, CP #### [address] [place] [address] Scenario Writer: Khadar Tang MD Eosinophils (Bld) [#/Vol] 0.86 10*3/uL High 0.00-0.44 [facility] Comment on above: Performed By: #### C DP MG, CP #### [address] [place], [place] [address] Scenario Writer: Khadar Tang MD Eosinophils/100 WBC (Bld) 7 % High 1-4 [facility] Comment on above: Performed By: #### C DP MG, CP #### [address] [place], [place] [address] Scenario Writer: Khadar Tang MD Erythrocyte distribution width (RBC) [Ratio] 16.2 % High 11.8-14.4 [facility] Comment on above: Performed By: #### C DP, MG, CP #### [address] [place], [place] [address] Scenario Writer: Khadar Tang MD Hematocrit (Bld) [Volume fraction] 27.6 % Low 40.7-50.3 [facility] Comment on above: Performed By: #### C DP, MG, CP #### [address] [place], [facility] Scenario Writer: Khadar aTng MD Hemoglobin (Bld) [Mass/Vol] 8.3 g/dL Low 13.0-17.0 [facility] Comment on above: Performed By: #### C DP, MG, CP #### [address] [place], [facility] Scenario Writer: Khadar Tang MD Immature granulocytes/100 WBC (Bld) 1 % High 0 [facility] Comment on above: Performed By: #### C DP, MG, CP #### [address] [place], [place] [address] Scenario Writer: Khadar Tang MD Lymphocytes (Bld) [#/Vol] 1.97 10*3/uL Normal 1.10-3.70 [facility] Comment on above: Performed By: #### C DP, MG, CP #### [address] [place] [id number] Scenario Writer: Khadar Tang MD Lymphocytes/100 WBC (Bld) 15 % Low 24-43 [facility] Comment on above: Performed By: #### C DP, MG, CP #### [address] [place] [address] Scenario Writer: Khadar Tang MD MCH (RBC) [Entitic mass] 23.3 pg Low 25.2-33.5 [facility] Comment on above: Performed By: #### C DP, MG, CP #### [address] [place], [facility] Scenario Writer: Khadar Tang MD MCHC (RBC) [Mass/Vol] 30.1 g/dL Normal 28.4-34.8 [facility] Comment on above: Performed By: #### C DP, MG, CP #### [address] [place] [address] Scenario Writer: Khadar Tang MD MCV (RBC) [Entitic vol] 77.5 fL Low 82.6-102.9 [facility] Comment on above: Performed By: #### C DP, MG, CP #### [facility] [address] [place], [facility] Scenario Writer: Khadar Tang MD Monocytes (Bld) [#/Vol] 0.88 10*3/uL Normal 0.10-1.20 [facility] Comment on above: Performed By: #### C DP, MG, CP #### [facility] [address] [place] [address] Dr. [place], [place] [address] Scenario Writer: Khadar Tang MD Monocytes/100 WBC (Bld) 7 % Normal 3-12 [facility] Comment on above: Performed By: #### C DP, MG, CP #### [address] [place], [place] [address] Scenario Writer: Khadar Tang MD Neutrophil (Seg) 70 % High 36-65 [facility] Comment on above: Performed By: #### C DP, MG, CP #### [address] [place], [place] [address] Scenario Writer: Khadar Tang MD NRBC Automated 0.0 per 100 WBC Normal 0.0 [facility] Comment on above: Performed By: #### C DP, MG, CP #### [address] [place], [place] [address] Scenario Writer: Khadar Tang MD Platelet mean volume (Bld) [Entitic vol] 8.6 fL Normal 8.1-13.5 [facility] Comment on above: Performed By: #### C DP, MG, CP #### [address] [place], [facility] Scenario Writer: Khadar Tang MD Platelets (Bld) [#/Vol] 338 10*3/uL Normal 138-453 [facility] Comment on above: Performed By: #### C DP, MG, CP #### [facility] [address] [place] [address] Scenario Writer: Khadar Tang MD RBC (Bld) [#/Vol] 3.56 10*6/uL Low 4.21-5.77 [facility] Comment on above: Performed By: #### C ZANDER MG, CP #### [facility] [address] [place], [facility] Scenario Writer: Khadar Tang MD WBC (Bld) [#/Vol] 12.8 10*3/uL High 3.5-11.3 [facility] Comment on above: Performed By: #### C MG ZANDER, CP #### [address] [place], [facility] Scenario Writer: Khadar Tang MD Abs. Basophil 0.04 k/uL Normal 0.00-0.20 [facility] Comment on above: Performed By: #### T ROPI #### [address] [place], [place] [address] Scenario Writer: Khadar Tang MD Abs.Imm.Granulocyte 0.06 k/uL Normal 0.00-0.30 [facility] Comment on above: Performed By: #### T ROPI #### [address] [place], [facility] Scenario Writer: Khadar Tang MD Abs.Neutrophil (Seg) 9.06 k/uL High 1.50-8.10 [facility] Comment on above: Performed By: #### T ROPI #### [address] [place], [facility] Scenario Writer: Khadar Tang MD Basophils/100 WBC (Bld) 0 % Normal 0-2 [facility] Comment on above: Performed By: #### T ROPI #### [facility] [address] [place] [address] Dr. [place], [place] [address] Scenario Writer: Khadar Tang MD Eosinophils (Bld) [#/Vol] 0.84 10*3/uL High 0.00-0.44 [facility] Comment on above: Performed By: #### T ROPI #### [address] [place], [place] [id number] Scenario Writer: Khadar Tang MD Eosinophils/100 WBC (Bld) 7 % High 1-4 [facility] Comment on above: Performed By: #### T ROPI #### [address] [place] [address] [place] [address] Scenario Writer: Khadar Tang MD Erythrocyte distribution width (RBC) [Ratio] 16.4 % High 11.8-14.4 [facility] Comment on above: Performed By: #### T ROPI #### [address] [place], [facility] Scenario Writer: Khadar Tang MD Hematocrit (Bld) [Volume fraction] 27.1 % Low 40.7-50.3 [facility] Comment on above: Performed By: #### T ROPI #### [address] [place], [place] [id number] Scenario Writer: Khadar Tang MD Hemoglobin (Bld) [Mass/Vol] 8.7 g/dL Low 13.0-17.0 [facility] Comment on above: Performed By: #### T ROPI #### [address] [place], [place] [id number] Scenario Writer: Khadar Tang MD Immature granulocytes/100 WBC (Bld) 1 % High 0 [facility] Comment on above: Performed By: #### T ROPI #### [address] [place] [address] [place] [address] Scenario Writer: Khadar Tang MD Lymphocytes (Bld) [#/Vol] 1.69 10*3/uL Normal 1.10-3.70 [facility] Comment on above: Performed By: #### T ROPI #### [facility] [address] [place], [place] [address] Scenario Writer: Khadar Tang MD Lymphocytes/100 WBC (Bld) 14 % Low 24-43 [facility] Comment on above: Performed By: #### T ROPI #### [facility] [address] [place], [place] [address] Scenario Writer: Khadar Tang MD MCH (RBC) [Entitic mass] 25.3 pg Normal 25.2-33.5 [facility] Comment on above: Performed By: #### T ROPI #### [address] [place] [place] [address] Scenario Writer: Khadar Tang MD MCHC (RBC) [Mass/Vol] 32.1 g/dL Normal 28.4-34.8 [facility] Comment on above: Performed By: #### T ROPI #### [address] [place], [place] [address] Scenario Writer: Khadar Tang MD MCV (RBC) [Entitic vol] 78.8 fL Low 82.6-102.9 [facility] Comment on above: Performed By: #### T ROPI #### [address] [place], [place] [address] Scenario Writer: Khadar Tang MD Monocytes (Bld) [#/Vol] 0.82 10*3/uL Normal 0.10-1.20 [facility] Comment on above: Performed By: #### T ROPI #### [address] [place], [facility] Scenario Writer: Khadar Tang MD Monocytes/100 WBC (Bld) 7 % Normal 3-12 [facility] Comment on above: Performed By: #### T ROPI #### [facility] [address] [place] [address] Dr. [place], [place] [id number] Scenario Writer: Khadar Tang MD Neutrophil (Seg) 71 % High 36-65 [facility] Comment on above: Performed By: #### T ROPI #### [facility] [address] [place], [place] 1283783 Scenario Writer: Khadar Tang MD NRBC Automated 0.0 per 100 WBC Normal 0.0 [facility] Comment on above: Performed By: #### T ROPI #### [facility] [address] [place], [place] [id number] Scenario Writer: Khadar Tang MD Platelet mean volume (Bld) [Entitic vol] 9.4 fL Normal 8.1-13.5 [facility] Comment on above: Performed By: #### T ROPI #### [facility] [address] [place], [place] [id number] Scenario Writer: Khadar Tang MD Platelets (Bld) [#/Vol] 345 10*3/uL Normal 138-453 [facility] Comment on above: Performed By: #### T ROPI #### [facility] [address] [place], [place] [id number] Scenario Writer: Khadar Tang MD RBC (Bld) [#/Vol] 3.44 10*6/uL Low 4.21-5.77 [facility] Comment on above: Performed By: #### T ROPI #### [facility] [address] [place], [place] [id number] Scenario Writer: Khadar Tang MD WBC (Bld) [#/Vol] 12.5 10*3/uL High 3.5-11.3 [facility] Comment on above: Performed By: #### T ROPI #### [facility] [address] [place] [address] Scenario Writer: Khadar Tang MD CMPon 06-22-2022 Albumin [Mass/Vol] 3.2 g/dL Low 3.5 - 5.2 g/dL [facility] Albumin/Globulin [Mass ratio] 0.7 {ratio} Low 1.0 - 2.5 [facility] ALP [Catalytic activity/Vol] 101 U/L 40 - 129 U/L [facility] ALT [Catalytic activity/Vol] 8 U/L 5 - 41 U/L [facility] Anion gap [Moles/Vol] 11 mmol/L 9 - 17 mmol/L [facility] AST [Catalytic activity/Vol] 13 U/L NINF - 40 U/L [facility] Bilirubin [Mass/Vol] mg/dL Low 0.3 - 1 .2 mg/dL [facility] Calcium [Mass/Vol] 9.1 mg/dL 8.6 - 10. 4 mg/dL [facility] Chloride [Moles/Vol] 110 mmol/L High 98 - 10 7 mmol/L [facility] CO2 [Moles/Vol] 16 mmol/L Low 20 - 31 mmol/L [facility] Creatinine [Mass/Vol] 1.93 mg/dL High 0.70 - 1.20 mg/dL [facility] GFR/1.73 sq M.predicted MDRD (S/P/Bld) [Vol rate/Area] 39 mL/min/{1.73_m2} Low - PINF [facility] Comment on above: These results are [...] 148 mg/dL High 70 - 99 mg/dL [facility] Interpretation and review of laboratory results Abnormal [facility] Potassium [Moles/Vol] 6.3 mmol/L Critically high 3.7 - 5.3 mmol/L [facility] Protein [Mass/Vol] 8.1 g/dL 6.4 - 8.3 g/dL [facility] Sodium [Moles/Vol] 137 mmol/L 135 - 144 mmol/L [facility] Urea nitrogen [Mass/Vol] 49 mg/dL High 8 - 23 mg/dL [facility] Urea nitrogen/Creatinine (Bld) [Mass ratio] 25 High 9 - 20 [facility] Comp Metabolic Profon 2022 Bilirubin [Mass/Vol] mg/dL Low 0.3-1.2 [facility] Comment on above: Performed By: #### C DP, MG, CP #### [facility] [address] [place] [address] Scenario Writer: Khadar Tang MD Potassium [Moles/Vol] 6.3 mmol/L Critically high 3.7-5.3 [facility] Comment on above: Performed By: #### C DP, MG, CP #### [facility] [address] [place], [place] [id number] Scenario Writer: Khadar Tang MD Albumin [Mass/Vol] 3.2 g/dL Low 3.5-5.2 [facility] Comment on above: Performed By: #### C DP, MG, CP #### [facility] [address] [place], [place] [id number] Scenario Writer: Khadar Tang MD Albumin/Glob Ratio 0.7 Low 1.0-2.5 [facility] Comment on above: Performed By: #### C DP, MG, CP #### [facility] [address] [place], [place] [id number] Scenario Writer: Khadar Tang MD Alkaline Phos 101 U/L Normal 40-129 [facility] Comment on above: Performed By: #### C DP, MG, CP #### [facility] [address] [place] [address] Scenario Writer: Khadar Tang MD ALT [Catalytic activity/Vol] 8 U/L Normal 5-41 [facility] Comment on above: Performed By: #### C DP, MG, CP #### [facility] [address] [place], [place] [id number] Scenario Writer: Khadar Tang MD Anion gap [Moles/Vol] 11 mmol/L Normal 9-17 [facility] Comment on above: Performed By: #### C DP, MG, CP #### [facility] [address] [place], [place] [id number] Scenario Writer: Khadar Tang MD AST [Catalytic activity/Vol] 13 U/L Normal <40 [facility] Comment on above: Performed By: #### C DP, MG, CP #### [facility] [address] [place], [place] [id number] Scenario Writer: Khadar Tang MD BUN/CRE Ratio 25 High 9-20 [facility] Comment on above: Performed By: #### C DP, MG, CP #### [facility] [address] [place] [address] [address]. [place], [place] [id number] Scenario Writer: Khadar Tang MD Calcium [Mass/Vol] 9.1 mg/dL Normal 8.6-10.4 [facility] Comment on above: Performed By: #### C DP, MG, CP #### [facility] [address] [place] [address] Dr. [place], [place] [id number] Scenario Writer: Khadar Tang MD Chloride [Moles/Vol] 110 mmol/L High 98-107 [facility] Comment on above: Performed By: #### C DP, MG, CP #### [facility] [address] [place], [place] [id number] Scenario Writer: Khadar Tang MD CO2 [Moles/Vol] 16 mmol/L Low 20-31 [facility] Comment on above: Performed By: #### C DP, MG, CP #### [facility] [address] [place] [place] [address] Scenario Writer: Khadar Tang MD Creatinine [Mass/Vol] 1.93 mg/dL High 0.70-1.20 [facility] Comment on above: Performed By: #### C DP, MG, CP #### [facility] [address] [place] [address] Scenario Writer: Khadar Tang MD GFR/1.73 sq M.predicted among non-blacks MDRD (S/P/Bld) [Vol rate/Area] 39 mL/min/{1.73_m2} Low >60 [facility] Comment on above: Result Comment: [...] By: #### C DP, MG, CP #### [facility] [address] [place] [address] [place] [address] Scenario Writer: Khadar Tang MD Glucose [Mass/Vol] 148 mg/dL High 70-99 [facility] Comment on above: Performed By: #### C DP, MG, CP #### [address] [place] [address] Scenario Writer: Khadar Tang MD Protein [Mass/Vol] 8.1 g/dL Normal 6.4-8.3 [facility] Comment on above: Performed By: #### C DP, MG, CP #### [address] [place] [address] Scenario Writer: Khadar Tang MD Sodium [Moles/Vol] 137 mmol/L Normal 135-144 [facility] Comment on above: Performed By: #### C DP, MG, CP #### [facility] [address] [place] [address] [place] [place] [address] Scenario Writer: Khadar Tang MD Urea nitrogen [Mass/Vol] 49 mg/dL High 8- [facility] Comment on above: Performed By: #### C DP, MG, CP #### [facility] [address] [place] [address] Scenario Writer: Khadar Tang MD EKG 12 LeadOrdered By: Michelle de la rosa on 06-22-2022 Atrial Rate 58 BPM [employer] Work Phone: P [place] 66 degrees [employer] Work Phone: P-R Interval 148 ms [employer] Work Phone: Q-T Interval 394 ms [employer] Work Phone: QRS Duration 94 ms [employer] Work Phone: QTc Calculation ([place]) 386 ms [employer] Work Phone: R [place] 64 degrees [employer] Work Phone: T [place] -8 degrees [employer] Work Phone: Ventricular Rate 58 BPM [employer] Work Phone: [employer] Work Phone: EKG 12 Leadon 06-22-2022 Sinus [...] Noe MD ([id number]) on 06/22/2022 10:09:31 PM [facility] Michelle Noe MD - 06/22/2022 Sinus bradycardia Inferior infarct , age undetermined Possible Anterolateral infarct , age undetermined Abnormal ECG When compared with ECG of 24-APR-2015 18:25, Vent. rate has decreased BY 39 BPM Borderline criteria for Anterolateral infarct are now Present T wave inversion now evident in Inferior leads QT has shortened Confirmed by Michelle Noe MD ([id number]) on 06/22/2022 10:09:31 PM [facility] Work Phone: Magnesiumon 06-22-2022 Magnesium [Mass/Vol] 2.0 mg/dL Normal 1.6-2.6 [facility] Comment on above: Performed By: #### C DP, MG, CP #### [facility] [address] [place] [address] Scenario Writer: Khadar Tang MD Magnesium [Mass/Vol] 2.0 mg/dL 1.6 - 2 .6 mg/dL [facility] CT PELVIS WO CONon 2 CT [...] by: JESUSITA PAPPAS Date: 2022-03-14 09:50 Normal [facility] GLYCOHEMOGLOBIN A1Con 2021 ADA RECOMMENDATION ADA THERAPEUTIC TARG ET 6.0 - 7.0 ACTION SUGGESTED > 7.0 Normal [facility] Comment on above: Performed By: #### A 1C #### [facility] [address] [address] [address] Juan Smith Glucose [Mass/Vol] 180 mg/dL Normal [facility] Comment on above: Performed By: #### A 1C #### [facility] [address] [address] [address] Juan Smith HbA1c (Bld) [Mass fraction] 7.9 % Critically high <=6.0 [facility] Comment on above: Performed By: #### A 1C #### [facility] [address] [address] [address] Juan Smith Cult,Aerobe/Anaerobeon 04-15 Neutrophils Specimen Description .TISSUE RIGHT MEDIAL HEEL POST IRRIGATIONSpecial Requests NOT REPORTEDDirect Exam NO NEUTROPHILS SEEN NO BACTERIA SEEN Culture METHICILLIN RESISTANT STAPHYLOCOCCUS AUREUS SCANT GROWTH For susceptibility, refer to previous culture. STREPTOCOCCI, BETA HEMOLYTIC GROUP C SCANT GROWTH DIPHTHEROIDS SCANT GROWTH NO ANAEROBIC ORGANISMS ISOLATED AT 5 DAYS Report Status FINAL 04/15/2017 Normal [facility] Comment on above: Performed By: #### A ANC ####[id number] Neutrophils Specimen Description .TISSUE RIGHT ANKLE PRE IRRIGATIONSpecial Requests NOT REPORTEDDirect Exam NO NEUTROPHILS SEEN RARE GRAM POSITIVE COCCI IN PAIRS Culture METHICILLIN RESISTANT STAPHYLOCOCCUS AUREUS LIGHT GROWTH For susceptibility, refer to previous culture. STREPTOCOCCI, BETA HEMOLYTIC GROUP C SCANT GROWTH NO ANAEROBIC ORGANISMS ISOLATED AT 5 DAYS Report Status FINAL 04/15/2017 Normal [facility] Comment on above: Performed By: #### A ANC ####[address] [address] Neutrophils Specimen Description .TISSUE RIGHT MEDIAL HEEL PRE IRRIGATIONSpecial Requests NOT REPORTEDDirect Exam NO NEUTROPHILS SEEN NO BACTERIA SEEN Culture STREPTOCOCCI, BETA HEMOLYTIC GROUP C LIGHT GROWTH METHICILLIN RESISTANT STAPHYLOCOCCUS AUREUS SCANT GROWTH For susceptibility, refer to previous culture. DIPHTHEROIDS LIGHT GROWTH NO ANAEROBIC ORGANISMS ISOLATED AT 5 DAYS Report Status FINAL 04/15/2017 [facility] Comment on above: Performed By: #### A ANC ####[address] [address] Basic Metabolic Profon 04-13 (cont.) Normal [facility] Comment on above: Result Comment: Aver age GFR for 50-59 years old: 93 mL/min/1.73sq mChronic Kidney Disease: <60 mL/min/1.73sq mKidney failure: <15 mL/min/1.73sq meGFR calculated using average adult body mass. Additional eGFR calculator available at:http://www.[email or web address]_crcl_2012.htmMark [address] [place], [place] [address] ([phone] Performed By: #### C DP, CMPX, CRP, SED, GLYHGB ####[address] [address] Anion gap 11 mmol/L Normal - [facility] Comment on above: Performed By: #### C DP, CMPX, CRP, SED, GLYHGB ####[address] [address] Calcium 8.7 mg/dL Normal 8.6-10.4 [facility] Comment on above: Performed By: #### C DP, CMPX, CRP, SED, GLYHGB ####[address] [address] Chloride 106 mmol/L Normal 98-107 [facility] Comment on above: Performed By: #### C DP, CMPX, CRP, SED, GLYHGB ####[address] [address] CO2 22 mmol/L Normal 20-31 [facility] Comment on above: Performed By: #### C DP, CMPX, CRP, SED, GLYHGB ####[address] [address] Creatinine 1.04 mg/dL Normal 0.70-1.20 [facility] Comment on above: Performed By: #### C DP, CMPX, CRP, SED, GLYHGB ####[address] [address] eGFR (non-black) mL/min/{1.73_m2} Normal >60 [facility] Comment on above: Performed By: #### C DP, CMPX, CRP, SED, GLYHGB ####[address] [address] Glucose mass conc 174 mg/dL High 70-99 [facility] Comment on above: Performed By: #### C DP, CMPX, CRP, SED, GLYHGB ####[address] [address] Potassium molar conc 4.1 mmol/L Normal 3.7-5.3 [facility] Comment on above: Performed By: #### C DP, CMPX, CRP, SED, GLYHGB ####[address] [address] Sodium 139 mmol/L Normal 135-144 [facility] Comment on above: Performed By: #### C DP, CMPX, CRP, SED, GLYHGB ####[address] [address] Urea nitrogen 16 mg/dL Normal 6-20 [facility] Comment on above: Performed By: #### C DP, CMPX, CRP, SED, GLYHGB ####[address] [address] BUN/CRE Ratio NOT REPORTED Normal 9-20 [facility] Comment on above: Performed By: #### C DP, CMPX, CRP, SED, GLYHGB ####[address] [address] Staging: NOT REPORTED Normal [facility] Comment on above: Performed By: #### C DP, CMPX, CRP, SED, GLYHGB ####[address] [address] CBC with Diffon 04-13-2017 Abs. Basophil <0.03 Normal 0.00-0.20 [facility] Comment on above: Performed By: #### C DP, CMPX, CRP, SED, GLYHGB ####[address] [address] Abs.Neutrophil (Seg) 4.97 k/uL Normal 1.50-8.10 [facility] Comment on above: Performed By: #### C DP, CMPX, CRP, SED, GLYHGB ####[address] [address] Basophils/100 WBC Auto (Bld) 0 % Normal 0-2 [facility] Comment on above: Performed By: #### C DP, CMPX, CRP, SED, GLYHGB ####[address] [address] Eosinophils 0.24 10*3/uL Normal 0.00-0.44 [facility] Comment on above: Performed By: #### C DP, CMPX, CRP, SED, GLYHGB ####[address] [address] Eosinophils/100 leukocytes 3 % Normal 1-4 [facility] Comment on above: Performed By: #### C DP, CMPX, CRP, SED, GLYHGB ####[address] [address] Erythrocyte distribution width Auto Ratio (RBC) 14.8 % High 11.8-14.4 [facility] Comment on above: Performed By: #### C DP, CMPX, CRP, SED, GLYHGB ####[address] [address] Erythrocyte morphology ANISOCYTOSIS PRESENT Normal [facility] Comment on above: Result Comment: [address] [place] [address] Performed By: #### C DP, CMPX, CRP, SED, GLYHGB ####[address] [address] Erythrocytes (RBC) 0.0 per 100 WBC Normal 0.0 [facility] Comment on above: Performed By: #### C DP, CMPX, CRP, SED, GLYHGB ####[address] [address] Erythrocytes (RBC) 3.42 10*6/uL Low 4.21-5.77 [facility] Comment on above: Performed By: #### C DP, CMPX, CRP, SED, GLYHGB ####[address] [address] Granulocytes/100 WBC (Bld) 0.19 k/uL Normal 0.00-0.30 [facility] Comment on above: Performed By: #### C DP, CMPX, CRP, SED, GLYHGB ####[address] [address] Hematocrit (HCT) 29.4 % Low 40.7-50.[address] [facility] Comment on above: Performed By: #### C DP, CMPX, CRP, SED, GLYHGB ####[address] [address] Hemoglobin mass conc (Bld) 8.8 g/dL Low 13.0-17.0 [facility] Comment on above: Performed By: #### C DP, CMPX, CRP, SED, GLYHGB ####[address] [address] Immature granulocytes #/vol (Bld) 2 % High 0 [facility] Comment on above: Performed By: #### C DP, CMPX, CRP, SED, GLYHGB ####[address] [address] Lymphocytes 2.00 10*3/uL Normal 1.10-3.70 [facility] Comment on above: Performed By: #### C DP, CMPX, CRP, SED, GLYHGB ####[address] [address] Lymphocytes/100 leukocytes 25 % Normal 24-43 [facility] Comment on above: Performed By: #### C DP, CMPX, CRP, SED, GLYHGB ####[address] [address] MCH 25.7 pg Normal 25.2-33.5 [facility] Comment on above: Performed By: #### C DP, CMPX, CRP, SED, GLYHGB ####[address] [address] MCHC mass conc (RBC) 29.9 g/dL Normal 28.4-34.8 [facility] Comment on above: Performed By: #### C DP, CMPX, CRP, SED, GLYHGB ####[address] [address] MCV 86.0 fL Normal 82.6-102.9 [facility] Comment on above: Performed By: #### C DP, CMPX, CRP, SED, GLYHGB ####[address] [address] Monocytes 0.53 10*3/uL Normal 0.10-1.20 [facility] Comment on above: Performed By: #### C DP, CMPX, CRP, SED, GLYHGB ####[address] [address] Monocytes/100 leukocytes 7 % Normal 3-12 [facility] Comment on above: Performed By: #### C DP, CMPX, CRP, SED, GLYHGB ####[address] [address] Neutrophil (Seg) 63 % Normal 36-[address] [facility] Comment on above: Performed By: #### C DP, CMPX, CRP, SED, GLYHGB ####[address] [address] Platelet mean volume (PMV) 9.9 fL Normal 8.1-13.5 [facility] Comment on above: Performed By: #### C DP, CMPX, CRP, SED, GLYHGB ####[address] [address] Platelets 257 10*3/uL Normal 138-453 [facility] Comment on above: Performed By: #### C DP, CMPX, CRP, SED, GLYHGB ####[address] [address] WBC (Leukocytes) 8.0 10*3/uL Normal 3.5-11.3 [facility] Comment on above: Performed By: #### C DP, CMPX, CRP, SED, GLYHGB ####[facility] [address] [place] [address] Auto Diff Performed NOT REPORTED Normal [facility] Comment on above: Performed By: #### C DP, CMPX, CRP, SED, GLYHGB ####[facility] [address] [place] [address] Platelets NOT REPORTED Normal [facility] Comment on above: Performed By: #### C DP, CMPX, CRP, SED, GLYHGB ####[facility] [address] [place] [address] WBC Morphology NOT REPORTED Normal [facility] Comment on above: Performed By: #### C DP, CMPX, CRP, SED, GLYHGB ####[facility] [address] [place] [address] Discharge Summaryon 04-13-19 18 HIM IP Note OR Contract Technical Writer Normal [facility] Plan of Careon 04-13-2017 HIM IP Note OR Contract Technical Writer Normal [facility] HIM IP Note OR Contract Technical Writer Normal [facility] Progress Noteon 04-13-2017 HIM IP Note OR Contract Technical Writer Normal [facility] HIM IP Note OR Contract Technical Writer Normal [facility] HIM IP Note OR Contract Technical Writer Normal [facility] HIM IP Note OR Contract Technical Writer Normal [facility] HIM IP Note OR Contract Technical Writer Normal [facility] HIM IP Note OR Contract Technical Writer Normal [facility] Basic Metabolic Profon 04-12 (cont.) Normal [facility] Comment on above: Result Comment: Aver age GFR for 50-59 years old: 93 mL/min/1.73sq mChronic Kidney Disease: <60 mL/min/1.73sq mKidney failure: <15 mL/min/1.73sq meGFR calculated using average adult body mass. Additional eGFR calculator available at:http://www.Boxfish.[employer]multiple_crcl_2012.htm[address] [address] Performed By: #### C DP, CMPX, CRP, SED, GLYHGB ####[address] [address] Anion gap 8 mmol/L Low 9-17 [facility] Comment on above: Performed By: #### C DP, CMPX, CRP, SED, GLYHGB ####[address] [address] Calcium 8.8 mg/dL Normal 8.6-10.4 [facility] Comment on above: Performed By: #### C DP, CMPX, CRP, SED, GLYHGB ####[address] [address] Chloride 107 mmol/L Normal 98-107 [facility] Comment on above: Performed By: #### C DP, CMPX, CRP, SED, GLYHGB ####[address] [address] CO2 23 mmol/L Normal 20-31 [facility] Comment on above: Performed By: #### C DP, CMPX, CRP, SED, GLYHGB ####[address] [address] Creatinine 1.01 mg/dL Normal 0.70-1.20 [facility] Comment on above: Performed By: #### C DP, CMPX, CRP, SED, GLYHGB ####[address] [address] eGFR (non-black) mL/min/{1.73_m2} Normal >60 Me [facility] Comment on above: Performed By: #### C DP, CMPX, CRP, SED, GLYHGB ####[address] [place] [address] Glucose mass conc 172 mg/dL High 70-99 [facility] Comment on above: Performed By: #### C DP, CMPX, CRP, SED, GLYHGB ####[address] [address] Potassium molar conc 3.9 mmol/L Normal 3.7-5.3 [facility] Comment on above: Performed By: #### C DP, CMPX, CRP, SED, GLYHGB ####[address] [address] Sodium 138 mmol/L Normal 135-144 [facility] Comment on above: Performed By: #### C DP, CMPX, CRP, SED, GLYHGB ####[address] [address] Urea nitrogen 15 mg/dL Normal 6-20 [facility] Comment on above: Performed By: #### C DP, CMPX, CRP, SED, GLYHGB ####[address] [place] [address] BUN/CRE Ratio NOT REPORTED Normal 9-20 [facility] Comment on above: Performed By: #### C DP, CMPX, CRP, SED, GLYHGB ####[address] [place] [address] Staging: NOT REPORTED Normal [facility] Comment on above: Performed By: #### C DP, CMPX, CRP, SED, GLYHGB ####[address] [address] CBC with Diffon 04-12-2017 Abs. Basophil <0.03 Normal 0.00-0.20 [facility] Comment on above: Performed By: #### C DP, CMPX, CRP, SED, GLYHGB ####[address] [address] Abs.Neutrophil (Seg) 4.31 k/uL Normal 1.50-8.10 [facility] Comment on above: Performed By: #### C DP, CMPX, CRP, SED, GLYHGB ####[address] [address] Basophils/100 WBC Auto (Bld) 0 % Normal 0-2 [facility] Comment on above: Performed By: #### C DP, CMPX, CRP, SED, GLYHGB ####[address] [address] Eosinophils 0.21 10*3/uL Normal 0.00-0.44 [facility] Comment on above: Performed By: #### C DP, CMPX, CRP, SED, GLYHGB ####[address] [address] Eosinophils/100 leukocytes 3 % Normal 1-4 [facility] Comment on above: Performed By: #### C DP, CMPX, CRP, SED, GLYHGB ####[address] [address] Erythrocyte distribution width Auto Ratio (RBC) 14.7 % High 11.8-14.4 [facility] Comment on above: Performed By: #### C DP, CMPX, CRP, SED, GLYHGB ####[address] [address] Erythrocyte morphology ANISOCYTOSIS PRESENT Normal [facility] Comment on above: Result Comment: [address] [address] Performed By: #### C DP, CMPX, CRP, SED, GLYHGB ####[address] [address] Erythrocytes (RBC) 3.45 10*6/uL Low 4.21-5.77 [facility] Comment on above: Performed By: #### C DP, CMPX, CRP, SED, GLYHGB ####[address] [address] Granulocytes/100 WBC (Bld) 0.22 k/uL Normal 0.00-0.30 [facility] Comment on above: Performed By: #### C DP, CMPX, CRP, SED, GLYHGB ####[address] [address] Hematocrit (HCT) 28.9 % Low 40.7-50.[address] [facility] Comment on above: Performed By: #### C DP, CMPX, CRP, SED, GLYHGB ####[address] [address] Hemoglobin mass conc (Bld) 8.9 g/dL Low 13.0-17.0 [facility] Comment on above: Performed By: #### C DP, CMPX, CRP, SED, GLYHGB ####[address] [address] Immature granulocytes #/vol (Bld) 3 % High 0 [facility] Comment on above: Performed By: #### C DP, CMPX, CRP, SED, GLYHGB ####[address] [address] Lymphocytes 1.83 10*3/uL Normal 1.10-3.70 [facility] Comment on above: Performed By: #### C DP, CMPX, CRP, SED, GLYHGB ####[address] [address] Lymphocytes/100 leukocytes 26 % Normal 24-43 [facility] Comment on above: Performed By: #### C DP, CMPX, CRP, SED, GLYHGB ####[address] [address] MCH 25.8 pg Normal 25.2-33.5 [facility] Comment on above: Performed By: #### C DP, CMPX, CRP, SED, GLYHGB ####[address] [address] MCHC mass conc (RBC) 30.8 g/dL Normal 28.4-34.8 [facility] Comment on above: Performed By: #### C DP, CMPX, CRP, SED, GLYHGB ####[address] [address] MCV 83.8 fL Normal 82.6-102.9 [facility] Comment on above: Performed By: #### C DP, CMPX, CRP, SED, GLYHGB ####[address] [address] Monocytes 0.58 10*3/uL Normal 0.10-1.20 [facility] Comment on above: Performed By: #### C DP, CMPX, CRP, SED, GLYHGB ####[address] [address] Monocytes/100 leukocytes 8 % Normal 3-12 [facility] Comment on above: Performed By: #### C DP, CMPX, CRP, SED, GLYHGB ####[address] [address] Neutrophil (Seg) 60 % Normal 36-[address] [facility] Comment on above: Performed By: #### C DP, CMPX, CRP, SED, GLYHGB ####[address] [address] Platelet mean volume (PMV) 9.3 fL Normal 8.1-13.5 [facility] Comment on above: Performed By: #### C DP, CMPX, CRP, SED, GLYHGB ####[address] [address] Platelets 231 10*3/uL Normal 138-453 [facility] Comment on above: Performed By: #### C DP, CMPX, CRP, SED, GLYHGB ####[facility] [address] [address] WBC (Leukocytes) 7.2 10*3/uL Normal 3.5-11.3 [facility] Comment on above: Performed By: #### C DP, CMPX, CRP, SED, GLYHGB ####[address] [address] Auto Diff Performed NOT REPORTED Normal [facility] Comment on above: Performed By: #### C DP, CMPX, CRP, SED, GLYHGB ####[address] [address] Platelets NOT REPORTED Normal [facility] Comment on above: Performed By: #### C DP, CMPX, CRP, SED, GLYHGB ####[address] [address] WBC Morphology NOT REPORTED Normal [facility] Comment on above: Performed By: #### C DP, CMPX, CRP, SED, GLYHGB ####[address] [address] Cult,Aerobe/Anaerobeon 04-12 Neutrophils Specimen Description .TISSUE RIGHT [...] NOT REPORTEDTrimethoprim/Sulfa <=10 SUSCEPTIBLEVancomycin 1 SUSCEPTIBLE Normal [facility] Comment on above: Performed By: #### A ANC ####[address] [address] Plan of Careon 04-12-2017 HIM IP Note OR Contract Technical Writer Normal [facility] HIM IP Note OR Contract Technical Writer Normal [facility] HIM IP Note OR Contract Technical Writer Normal [facility] HIM IP Note OR Contract Technical Writer Normal [facility] HIM IP Note OR Contract Technical Writer Normal [facility] Progress Noteon 04-12-2017 HIM IP Note OR Contract Technical Writer Normal [facility] HIM IP Note OR Contract Technical Writer Normal [facility] HIM IP Note OR Contract Technical Writer Normal [facility] HIM IP Note OR Contract Technical Writer Normal [facility] HIM IP Note OR Contract Technical Writer Normal [facility] HIM IP Note OR Contract Technical Writer Normal [facility] Basic Metabolic Profon 04-11 (cont.) Normal [facility] Comment on above: Result Comment: Aver age GFR for 50-59 years old: 93 mL/min/1.73sq mChronic Kidney Disease: <60 mL/min/1.73sq mKidney failure: <15 mL/min/1.73sq meGFR calculated using average adult body mass. Additional eGFR calculator available at:http://www.[employer]multiple_crcl_2012.htmMartin [facility] [address] [place] [address] ([phone] Performed By: #### C DP, CMPX, CRP, SED, GLYHGB ####[address] [place] [address] Anion gap 14 mmol/L Normal 9-17 [facility] Comment on above: Performed By: #### C DP, CMPX, CRP, SED, GLYHGB ####[address] [place] [address] Calcium 8.2 mg/dL Low 8.6-10.4 [facility] Comment on above: Performed By: #### C DP, CMPX, CRP, SED, GLYHGB ####[address] [address] Chloride 101 mmol/L Normal 98-107 [facility] Comment on above: Performed By: #### C DP, CMPX, CRP, SED, GLYHGB ####[address] [address] CO2 21 mmol/L Normal 20-31 [facility] Comment on above: Performed By: #### C DP, CMPX, CRP, SED, GLYHGB ####[address] [address] Creatinine 1.16 mg/dL Normal 0.70-1.20 [facility] Comment on above: Performed By: #### C DP, CMPX, CRP, SED, GLYHGB ####[address] [address] eGFR (non-black) mL/min/{1.73_m2} Normal >60 [facility] Comment on above: Performed By: #### C DP, CMPX, CRP, SED, GLYHGB ####[address] [address] Glucose mass conc 153 mg/dL High 70-99 [facility] Comment on above: Performed By: #### C DP, CMPX, CRP, SED, GLYHGB ####[address] [address] Potassium molar conc 4.0 mmol/L Normal 3.7-5.3 [facility] Comment on above: Performed By: #### C DP, CMPX, CRP, SED, GLYHGB ####[address] [address] Sodium 136 mmol/L Normal 135-144 [facility] Comment on above: Performed By: #### C DP, CMPX, CRP, SED, GLYHGB ####[address] [address] Urea nitrogen 18 mg/dL Normal 6-20 [facility] Comment on above: Performed By: #### C DP, CMPX, CRP, SED, GLYHGB ####[address] [address] BUN/CRE Ratio NOT REPORTED Normal -20 [facility] Comment on above: Performed By: #### C DP, CMPX, CRP, SED, GLYHGB ####[address] [address] Staging: NOT REPORTED Normal [facility] Comment on above: Performed By: #### C DP, CMPX, CRP, SED, GLYHGB ####[address] [address] C-Reactive Proteinon 018 C reactive protein (CRP) 55.5 mg/L High 0.0-5.0 [facility] Comment on above: Result Comment: [address] [address] Performed By: #### C DP, CMPX, CRP, SED, GLYHGB ####[address] [address] CBC with Diffon 04-11-2017 Abs. Basophil <0.03 Normal 0.00-0.20 [facility] Comment on above: Performed By: #### C DP, CMPX, CRP, SED, GLYHGB ####[address] [address] Abs.Neutrophil (Seg) 5.04 k/uL Normal 1.50-8.10 [facility] Comment on above: Performed By: #### C DP, CMPX, CRP, SED, GLYHGB ####[address] [address] Basophils/100 WBC Auto (Bld) 0 % Normal 0-2 [facility] Comment on above: Performed By: #### C DP, CMPX, CRP, SED, GLYHGB ####[address] [address] Eosinophils 0.24 10*3/uL Normal 0.00-0.44 [facility] Comment on above: Performed By: #### C DP, CMPX, CRP, SED, GLYHGB ####[address] [address] Eosinophils/100 leukocytes 3 % Normal 1-4 [facility] Comment on above: Performed By: #### C DP, CMPX, CRP, SED, GLYHGB ####[address] [address] Erythrocyte distribution width Auto Ratio (RBC) 14.8 % High 11.8-14.4 [facility] Comment on above: Performed By: #### C DP, CMPX, CRP, SED, GLYHGB ####[address] [address] Erythrocyte morphology ANISOCYTOSIS PRESENT Normal [facility] Comment on above: Result Comment: [address] [address] Performed By: #### C DP, CMPX, CRP, SED, GLYHGB ####[address] [address] Erythrocytes (RBC) 3.36 10*6/uL Low 4.21-5.77 [facility] Comment on above: Performed By: #### C DP, CMPX, CRP, SED, GLYHGB ####[address] [address] Granulocytes/100 WBC (Bld) 0.09 k/uL Normal 0.00-0.30 [facility] Comment on above: Performed By: #### C DP, CMPX, CRP, SED, GLYHGB ####[address] [address] Hematocrit (HCT) 28.8 % Low 40.7-50.[address] [facility] Comment on above: Performed By: #### C DP, CMPX, CRP, SED, GLYHGB ####[address] [address] Hemoglobin mass conc (Bld) 8.8 g/dL Low 13.0-17.0 [facility] Comment on above: Performed By: #### C DP, CMPX, CRP, SED, GLYHGB ####[address] [address] Immature granulocytes #/vol (Bld) 1 % High 0 [facility] Comment on above: Performed By: #### C DP, CMPX, CRP, SED, GLYHGB ####[address] [address] Lymphocytes 1.73 10*3/uL Normal 1.10-3.70 [facility] Comment on above: Performed By: #### C DP, CMPX, CRP, SED, GLYHGB ####[address] [address] Lymphocytes/100 leukocytes 23 % Low 24-43 [facility] Comment on above: Performed By: #### C DP, CMPX, CRP, SED, GLYHGB ####[address] [address] MCH 26.2 pg Normal 25.2-33.5 [facility] Comment on above: Performed By: #### C DP, CMPX, CRP, SED, GLYHGB ####[address] [address] MCHC mass conc (RBC) 30.6 g/dL Normal 28.4-34.8 [facility] Comment on above: Performed By: #### C DP, CMPX, CRP, SED, GLYHGB ####[address] [address] MCV 85.7 fL Normal 82.6-102.9 [facility] Comment on above: Performed By: #### C DP, CMPX, CRP, SED, GLYHGB ####[address] [address] Monocytes 0.56 10*3/uL Normal 0.10-1.20 [facility] Comment on above: Performed By: #### C DP, CMPX, CRP, SED, GLYHGB ####[address] [address] Monocytes/100 leukocytes 7 % Normal 3-12 [facility] Comment on above: Performed By: #### C DP, CMPX, CRP, SED, GLYHGB ####[address] [address] Neutrophil (Seg) 66 % High 36-[address] [facility] Comment on above: Performed By: #### C DP, CMPX, CRP, SED, GLYHGB ####[address] [address] Platelet mean volume (PMV) 9.9 fL Normal 8.1-13.5 [facility] Comment on above: Performed By: #### C DP, CMPX, CRP, SED, GLYHGB ####[address] [address] Platelets 264 10*3/uL Normal 138-453 [facility] Comment on above: Performed By: #### C DP, CMPX, CRP, SED, GLYHGB ####[address] [address] WBC (Leukocytes) 7.7 10*3/uL Normal 3.5-11.3 [facility] Comment on above: Performed By: #### C DP, CMPX, CRP, SED, GLYHGB ####[address] [address] Auto Diff Performed NOT REPORTED Normal [facility] Comment on above: Performed By: #### C DP, CMPX, CRP, SED, GLYHGB ####[address] [address] Platelets NOT REPORTED Normal [facility] Comment on above: Performed By: #### C DP, CMPX, CRP, SED, GLYHGB ####[address] [address] WBC Morphology NOT REPORTED Normal [facility] Comment on above: Performed By: #### C DP, CMPX, CRP, SED, GLYHGB ####[address] [address] Hemoglobin A1Con 04-11-2017 Glucose mass conc 315 mg/dL Normal [facility] Comment on above: Result Comment: The ADA and AACC recommend providing the estimated average glucose result to permit better patient understanding of their HBA1c result.[address] [id number] [phone] Performed By: #### C DP, CMPX, CRP, SED, GLYHGB ####[address] [place], [place] [id number] Hemoglobin A1c/Hemoglobin.total mass fraction (Bld) 12.6 % High 4.0-6.0 [facility] Comment on above: Performed By: #### C DP, CMPX, CRP, SED, GLYHGB ####[address] [place], [place] [id number] Plan of Careon 04-11-2017 HIM IP Note OR Contract Technical Writer Normal [facility] HIM IP Note OR Contract Technical Writer Normal [facility] HIM IP Note OR Contract Technical Writer Normal [facility] HIM IP Note OR Contract Technical Writer Normal [facility] Progress Noteon 04-11-2017 HIM IP Note OR Contract Technical Writer Normal [facility] HIM IP Note OR Contract Technical Writer Normal [facility] HIM IP Note OR Contract Technical Writer Normal [facility] HIM IP Note OR Contract Technical Writer Normal [facility] Consulton 04-10-2017 HIM IP Note OR Contract Technical Writer Normal [facility] Cult,Urine,Cathon 04-10-2017 Cult,Urine,Cath Specimen Description .CATHETERIZED URINE Special Requests NOT REPORTED Culture PRESUMPTIVE ID: LEO ALBICANS >[id number] CFU/ML Report Status FINAL 04/10/2017 [facility] Comment on above: Performed By: #### C DP, CMPX, CRP, SED, GLYHGB ####[facility] [place], [place] [address] Influenza A + B, PCRon 04-10 Influenza A + B, PCR Specimen Descriptio n .NASOPHARYNGEAL SWABSpecial Requests NOT REPORTEDDirect Exam NEGATIVE: Influenza A and B RNA not detected by nucleic acid amplification. The results obtained should be interpreted in conjunction with clinical findings and other laboratory markers. The performance characterisitics of this molecular test were validated by the molecular microbiology department of [facility] [employer]. Report Status FINAL 04/10/2017 [facility] Comment on above: Performed By: #### C DP, CMPX, CRP, SED, GLYHGB ####[facility] [address] [place], [place] [id number] OPERATIVE REPORTon [address] [facility] [address] [place] [address] OPERATIVE REPORTPATIENT NAME: GANGA STINSON : 1960[facility] REC NO: [id number] ROOM: [address] [place] [address] NO: [id number] ADMIT DATE: 04/09/2017PROVIDER: William Foster-JudgeDATE OF PROCEDURE: [...] for recovery. The patient has a primary traveling repair accountant, Dr. 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 The department of Infectious Disease,Internal Medicine, and specialty medicine services will provide care duringthe inpatient admission. He will return to the care of Dr. Min [place], [place], upon discharge.INDICATIONS FOR OPERATION: This is [...] He would follow up with his usual traveling repair accountant on anoutpatient basis. The departments of Internal Medicine and InfectiousDisease will guide our care in the interim. Cultures should be availablewith sensitivities in approximately 72 hours and consider dischargeplanning then.WILLIAM FOSTER-JUDGED: 04/10/2017 15:31:53 [id number]#: [id number] Doc#: [id number]: Yakov Min [facility] Department of Infectious Disease Internal Medicine Normal [facility] Plan of Careon 04-10-2017 HIM IP Note OR Contract Technical Writer Normal [facility] HIM IP Note OR Contract Technical Writer Normal [facility] Progress Noteon 04-10-2017 HIM IP Note OR Contract Technical Writer Normal [facility] HIM IP Note OR Contract Technical Writer Normal [facility] XR ANKLE RIGHT STANDARDon XR ANKLE [...] Bakerigned by:Roberto Carlos Cavazos MD04/09/17inal result Normal [facility] C-Reactive Proteinon 018 C reactive protein (CRP) 114.3 mg/L High 0.0-5.0 [facility] Comment on above: Result Comment: [employer] [address] [place], [place] [id number] [phone] Performed By: #### C DP, CMPX, CRP, SED, GLYHGB ####[address] [place] [address] CBC with Diffon 04-09-2017 Abs. Basophil <0.03 Normal 0.00-0.20 [facility] Comment on above: Performed By: #### C DP, CMPX, CRP, SED, GLYHGB ####[address] [address] Abs.Neutrophil (Seg) 5.95 k/uL Normal 1.50-8.10 [facility] Comment on above: Performed By: #### C DP, CMPX, CRP, SED, GLYHGB ####[address] [address] Basophils/100 WBC Auto (Bld) 0 % Normal 0-2 [facility] Comment on above: Performed By: #### C DP, CMPX, CRP, SED, GLYHGB ####[address] [address] Eosinophils 0.11 10*3/uL Normal 0.00-0.44 [facility] Comment on above: Performed By: #### C DP, CMPX, CRP, SED, GLYHGB ####[address] [address] Eosinophils/100 leukocytes 1 % Normal 1-4 [facility] Comment on above: Performed By: #### C DP, CMPX, CRP, SED, GLYHGB ####[address] [address] Erythrocyte distribution width Auto Ratio (RBC) 15.0 % High 11.8-14.4 [facility] Comment on above: Performed By: #### C DP, CMPX, CRP, SED, GLYHGB ####[address] [address] Erythrocyte morphology ANISOCYTOSIS PRESENT Normal [facility] Comment on above: Result Comment: [address] [place] [address] Performed By: #### C DP, CMPX, CRP, SED, GLYHGB ####[address] [address] Erythrocytes (RBC) 3.50 10*6/uL Low 4.21-5.77 [facility] Comment on above: Performed By: #### C DP, CMPX, CRP, SED, GLYHGB ####[place] [address] Granulocytes/100 WBC (Bld) 0.09 k/uL Normal 0.00-0.30 [facility] Comment on above: Performed By: #### C DP, CMPX, CRP, SED, GLYHGB ####[address] [address] Hematocrit (HCT) 29.9 % Low 40.7-50.[address] [facility] Comment on above: Performed By: #### C DP, CMPX, CRP, SED, GLYHGB ####[address] [address] Hemoglobin mass conc (Bld) 9.0 g/dL Low 13.0-17.0 [facility] Comment on above: Performed By: #### C DP, CMPX, CRP, SED, GLYHGB ####[address] [address] Immature granulocytes #/vol (Bld) 1 % High 0 [facility] Comment on above: Performed By: #### C DP, CMPX, CRP, SED, GLYHGB ####[address] [address] Lymphocytes 1.60 10*3/uL Normal 1.10-3.70 [facility] Comment on above: Performed By: #### C DP, CMPX, CRP, SED, GLYHGB ####[address] [address] Lymphocytes/100 leukocytes 19 % Low 24-43 [facility] Comment on above: Performed By: #### C DP, CMPX, CRP, SED, GLYHGB ####[address] [address] MCH 25.7 pg Normal 25.2-33.5 [facility] Comment on above: Performed By: #### C DP, CMPX, CRP, SED, GLYHGB ####[address] [address] MCHC mass conc (RBC) 30.1 g/dL Normal 28.4-34.8 [facility] Comment on above: Performed By: #### C DP, CMPX, CRP, SED, GLYHGB ####[address] [address] MCV 85.4 fL Normal 82.6-102.9 [facility] Comment on above: Performed By: #### C DP, CMPX, CRP, SED, GLYHGB ####[address] [address] Monocytes 0.53 10*3/uL Normal 0.10-1.20 [facility] Comment on above: Performed By: #### C DP, CMPX, CRP, SED, GLYHGB ####[address] [address] Monocytes/100 leukocytes 6 % Normal 3-12 [facility] Comment on above: Performed By: #### C DP, CMPX, CRP, SED, GLYHGB ####[address] [address] Neutrophil (Seg) 73 % High 36-[address] [facility] Comment on above: Performed By: #### C DP, CMPX, CRP, SED, GLYHGB ####[address] [address] Platelet mean volume (PMV) 9.6 fL Normal 8.1-13.5 [facility] Comment on above: Performed By: #### C DP, CMPX, CRP, SED, GLYHGB ####[address] [address] Platelets 224 10*3/uL Normal 138-453 [facility] Comment on above: Performed By: #### C DP, CMPX, CRP, SED, GLYHGB ####[address] [address] WBC (Leukocytes) 8.3 10*3/uL Normal 3.5-11.3 [facility] Comment on above: Performed By: #### C DP, CMPX, CRP, SED, GLYHGB ####[address] [address] Auto Diff Performed NOT REPORTED Normal [facility] Comment on above: Performed By: #### C DP, CMPX, CRP, SED, GLYHGB ####[address] [address] Platelets NOT REPORTED Normal [facility] Comment on above: Performed By: #### C DP, CMPX, CRP, SED, GLYHGB ####[address] [address] WBC Morphology NOT REPORTED Normal [facility] Comment on above: Performed By: #### C DP, CMPX, CRP, SED, GLYHGB ####[address] [address] Comp Metabolic Pr/rfx MGon 0 - (cont.) Normal [facility] Comment on above: Result Comment: Aver age GFR for 50-59 years old: 93 mL/min/1.73sq mChronic Kidney Disease: <60 mL/min/1.73sq mKidney failure: <15 mL/min/1.73sq meGFR calculated using average adult body mass. Additional eGFR calculator available at:[email or web address]_[email or web address] [facility] [address] [place] [address] Performed By: #### C DP, CMPX, CRP, SED, GLYHGB ####[address] [address] Alanine aminotransferase (ALT) 9 U/L Normal 5-41 [facility] Comment on above: Performed By: #### C DP, CMPX, CRP, SED, GLYHGB ####[address] [address] Albumin 2.8 g/dL Low 3.5-5.2 [facility] Comment on above: Performed By: #### C DP, CMPX, CRP, SED, GLYHGB ####[facility] [place] [address] Albumin/Globulin Ratio 0.7 {ratio} Low 1.0-2.5 [facility] Comment on above: Performed By: #### C DP, CMPX, CRP, SED, GLYHGB ####[address] [address] Alkaline Phos 57 U/L Normal 40-129 [facility] Comment on above: Performed By: #### C DP, CMPX, CRP, SED, GLYHGB ####[address] [address] Anion gap 13 mmol/L Normal 9-17 [facility] Comment on above: Performed By: #### C DP, CMPX, CRP, SED, GLYHGB ####[address] [address] Aspartate aminotransferase (AST) 9 U/L Normal <40 [facility] Comment on above: Performed By: #### C DP, CMPX, CRP, SED, GLYHGB ####[address] [address] Bilirubin Ql (U) 0.26 mg/dL Low 0.3-1.[address] [facility] Comment on above: Performed By: #### C DP, CMPX, CRP, SED, GLYHGB ####[address] [address] Calcium 8.4 mg/dL Low 8.6-10.4 [facility] Comment on above: Performed By: #### C DP, CMPX, CRP, SED, GLYHGB ####[address] [address] Chloride 99 mmol/L Normal 98-107 [facility] Comment on above: Performed By: #### C DP, CMPX, CRP, SED, GLYHGB ####[address] [address] CO2 21 mmol/L Normal 20-31 [facility] Comment on above: Performed By: #### C DP, CMPX, CRP, SED, GLYHGB ####[address] [address] Creatinine 1.13 mg/dL Normal 0.70-1.20 [facility] Comment on above: Performed By: #### C DP, CMPX, CRP, SED, GLYHGB ####[address] [address] eGFR (non-black) mL/min/{1.73_m2} Normal >60 [facility] Comment on above: Performed By: #### C DP, CMPX, CRP, SED, GLYHGB ####[address] [place] [address] Glucose mass conc 267 mg/dL High 70-99 [facility] Comment on above: Performed By: #### C DP, CMPX, CRP, SED, GLYHGB ####[address] [place] [address] Potassium molar conc 4.3 mmol/L Normal 3.7-5.3 [facility] Comment on above: Performed By: #### C DP, CMPX, CRP, SED, GLYHGB ####[address] [address] Protein 7.0 g/dL Normal 6.4-8.3 [facility] Comment on above: Performed By: #### C DP, CMPX, CRP, SED, GLYHGB ####[address] [address] Sodium 133 mmol/L Low 135-144 [facility] Comment on above: Performed By: #### C DP, CMPX, CRP, SED, GLYHGB ####[address] [address] Urea nitrogen 22 mg/dL High 6-20 [facility] Comment on above: Performed By: #### C DP, CMPX, CRP, SED, GLYHGB ####[address] [address] BUN/CRE Ratio NOT REPORTED Normal 9-20 [facility] Comment on above: Performed By: #### C DP, CMPX, CRP, SED, GLYHGB ####[address] [address] Staging: NOT REPORTED Normal [facility] Comment on above: Performed By: #### C DP, CMPX, CRP, SED, GLYHGB ####[address] [address] Consulton 04-09-2017 HIM IP Note OR Contract Technical Writer Normal [facility] HIM IP Note OR Contract Technical Writer Normal [facility] HIM IP Note OR Contract Technical Writer Normal [facility] Flu A/B Ag Detectionon 04-09 Flu A/B Ag Detection Specimen Descriptio n .NASOPHARYNGEAL SWABSpecial Requests NOT REPORTEDDirect Exam PRESUMPTIVE NEGATIVE for Influenza A + B antigens. PCR testing to confirm this result is available upon request. Specimen will be saved in the laboratory for 7 days. Please call [phone] if PCR testing is indicated. Report Status FINAL 04/09/2017 Normal [facility] Comment on above: Performed By: #### C DP, CMPX, CRP, SED, GLYHGB ####[facility] [address] [place] [address] History and Physicalon 04-09 [facility] IP Note OR Contract Technical Writer Normal [facility] MRI FOOT RIGHT W WO CONTRAST [...] suspected despite a lack of definitive precontrast [id number] changes.Large ulcer overlying the lateral malleolus with underlying osteomyelitis.Interpreted by:SAMMI Tellezigned by:Jesusita Mock MD04/09/17inal result Normal [facility] Op Noteon 04-09-2017 HIM IP Note OR Contract Technical Writer Normal [facility] Plan of Careon 04-09-2017 HIM IP Note OR Contract Technical Writer Normal [facility] HIM IP Note OR Contract Technical Writer Normal [facility] Progress Noteon 04-09-2017 HIM IP Note OR Contract Technical Writer Normal [facility] HIM IP Note OR Contract Technical Writer Normal [facility] HIM IP Note OR Contract Technical Writer Normal [facility] RSV Ag Detectionon 8 RSV Ag Detection Specimen Description .NASOPHARYNGEAL SWABSpecial Requests NOT REPORTEDDirect Exam Presumptive negative for the presence of RSV antigen. PCR testing to confirm this result is available upon request. Specimen will be saved in the laboratory for 7 days. Please call [phone] if PCR testing is indicated. Report Status FINAL 04/09/2017 Normal [facility] Comment on above: Performed By: #### C DP, CMPX, CRP, SED, GLYHGB ####[address] [place] [address] Sedimentation Rateon 018 Sedimentation Rate 80 mm High 0-10 [facility] Comment on above: Result Comment: [employer] [address] [place] [address] Performed By: #### C DP, CMPX, CRP, SED, GLYHGB ####[facility] [address] [place] [address] XR FOOT RIGHT STANDARDon XR FOOT RIGHT [...] by:SAMMI Tellezigned by:Jesusita Mock MD04/09/17inal result Normal [facility] Vital Signs Date Time Vital Sign Value Performing Clinician Facility 10-02-2024 13:45-0400 Diastolic blood pressure 63 mm[Hg] Fidel Abbott MD Work Phone: [facility] 10-02-2024 13:45-0400 Heart rate 55 /min Fidel Abbott MD Work Phone: [facility] 10-02-2024 13:45-0400 Respiratory rate 16 /min Fidel Abbott MD Work Phone: [facility] 10-02-2024 13:45-0400 SaO2% (BldA) [Mass fraction] 97 % Fidel Abbott MD Work Phone: [facility] 10-02-2024 13:45-0400 Systolic blood pressure 108 mm[Hg] Fidel Abbott MD Work Phone: [facility] 10-02-2024 13:00-0400 Inhaled oxygen flow rate 6 L/min Fidel Abbott MD Work Phone: [facility] 10-02-2024 10:58-0400 Body height 180.34 cm Fidel Abbott MD Work Phone: [facility] 10-02-2024 10:58-0400 Body temperature 98.4 [degF] Fidel Abbott MD Work Phone: [facility] 10-02-2024 10:58-0400 Body weight 102.05 kg Fidel Abbott MD Work Phone: [facility] 08-30-2024 12:17-0400 Body temperature 96.7 [degF] Fidel Abbott MD Work Phone: [facility] 08-30-2024 12:17-0400 Diastolic blood pressure 42 mm[Hg] Fidel Abbott MD Work Phone: [facility] 08-30-2024 12:17-0400 Heart rate 56 /min Fidel Abbott MD Work Phone: [facility] 08-30-2024 12:17-0400 SaO2% (BldA) [Mass fraction] 97 % Fidel Abbott MD Work Phone: [facility] 08-30-2024 12:17-0400 Systolic blood pressure 98 mm[Hg] Fidel Abbott MD Work Phone: [facility] 08-15-2024 11:19-0400 Body height 180.34 cm Fidel Abbott MD Work Phone: [facility] 08-15-2024 11:19-0400 Body mass index (BMI) [Ratio] 31.4 kg/m2 Fidel Abbott MD Work Phone: [facility] 08-15-2024 11:19-0400 Body weight 102.05 kg Fidel Abbott MD Work Phone: [facility] 08-15-2024 10:28-0400 Body temperature 98.1 [degF] Fidel Abbott MD Work Phone: [facility] 08-15-2024 10:28-0400 Diastolic blood pressure 70 mm[Hg] Fidel Abbott MD Work Phone: [facility] 08-15-2024 10:28-0400 Heart rate 71 /min Fidel Abbott MD Work Phone: [facility] 08-15-2024 10:28-0400 Respiratory rate 16 /min Fidel Abbott MD Work Phone: [facility] 08-15-2024 10:28-0400 Systolic blood pressure 134 mm[Hg] Fidel Abbott MD Work Phone: [facility] 07-31-2024 10:49-0400 Body height 180.3 cm Fidel Abbott MD Work Phone: [facility] 07-31-2024 10:49-0400 Body temperature 97.5 [degF] Fidel Abbott MD Work Phone: [facility] 07-31-2024 10:49-0400 Diastolic blood pressure 70 mm[Hg] Fidel Abbott MD Work Phone: [facility] 07-31-2024 10:49-0400 Heart rate 57 /min Fidel Abbott MD Work Phone: [facility] 07-31-2024 10:49-0400 Respiratory rate 18 /min Fidel Abbott MD Work Phone: [facility] 07-31-2024 10:49-0400 SaO2% (BldA) [Mass fraction] 98 % Fidel Abbott MD Work Phone: [facility] 07-31-2024 10:49-0400 Systolic blood pressure 142 mm[Hg] Fidel Abbott MD Work Phone: [facility] 03-14-2024 11:23-0500 Body height 180.34 cm Fidel Abbott MD Work Phone: [facility] 03-14-2024 11:23-0500 Body mass index (BMI) [Ratio] 31.4 kg/m2 Fidel Abbott MD Work Phone: [facility] 03-14-2024 11:23-0500 Body weight 102.05 kg Fidel Abbott MD Work Phone: [facility] 03-14-2024 10:50-0500 Body temperature 98.2 [degF] Fidel Abbott MD Work Phone: [facility] 03-14-2024 10:50-0500 Diastolic blood pressure 67 mm[Hg] Fidel Abbott MD Work Phone: [facility] 03-14-2024 10:50-0500 Heart rate 61 /min Fidel Abbott MD Work Phone: [facility] 03-14-2024 10:50-0500 Respiratory rate 18 /min Fidel Abbott MD Work Phone: [facility] 03-14-2024 10:50-0500 Systolic blood pressure 128 mm[Hg] Fidel Abbott MD Work Phone: [facility] 02-08-2024 11:44-0500 Body height 180.34 cm Fidel Abbott MD Work Phone: [facility] 02-08-2024 11:44-0500 Body mass index (BMI) [Ratio] 31.4 kg/m2 Fidel Abbott MD Work Phone: [facility] 02-08-2024 11:44-0500 Body weight 102.05 kg Fidel Abbott MD Work Phone: [facility] 02-08-2024 10:51-0500 Body temperature 98.1 [degF] Fidel Abbott MD Work Phone: [facility] 02-08-2024 10:51-0500 Diastolic blood pressure 66 mm[Hg] Fidel Abbott MD Work Phone: [facility] 02-08-2024 10:51-0500 Heart rate 64 /min Fidel Abbott MD Work Phone: [facility] 02-08-2024 10:51-0500 Respiratory rate 18 /min Fidel Abbott MD Work Phone: [facility] 02-08-2024 10:51-0500 Systolic blood pressure 125 mm[Hg] Fidel Abbott MD Work Phone: [facility] 01-20-2024 11:52-0400 Body height 180.3 cm Fidel Abbott MD Work Phone: [facility] 01-20-2024 11:52-0400 Body temperature 97.5 [degF] Fidel Abbott MD Work Phone: [facility] 01-20-2024 11:52-0400 Diastolic blood pressure 58 mm[Hg] Fidel Abbott MD Work Phone: [facility] 01-20-2024 11:52-0400 Heart rate 57 /min Fidel Abbott MD Work Phone: [facility] 01-20-2024 11:52-0400 Respiratory rate 20 /min Fidel Abbott MD Work Phone: [facility] 01-20-2024 11:52-0400 SaO2% (BldA) [Mass fraction] 99 % Fidel Abbott MD Work Phone: [facility] 01-20-2024 11:52-0400 Systolic blood pressure 130 mm[Hg] Fidel Abbott MD Work Phone: [facility] 11-18-2023 13:47-0400 Body height 180.3 cm Fidel Abbott MD Work Phone: [facility] 11-18-2023 13:47-0400 Body temperature 97.5 [degF] Fidel Abbott MD Work Phone: [facility] 11-18-2023 13:47-0400 Diastolic blood pressure 70 mm[Hg] Fidel Abbott MD Work Phone: [facility] 11-18-2023 13:47-0400 Heart rate 60 /min Fidel Abbott MD Work Phone: [facility] 11-18-2023 13:47-0400 Respiratory rate 18 /min Fidel Abbott MD Work Phone: [facility] 11-18-2023 13:47-0400 SaO2% (BldA) [Mass fraction] 97 % Fidel Abbott MD Work Phone: [facility] 11-18-2023 13:47-0400 Systolic blood pressure 160 mm[Hg] Fidel Abbott MD Work Phone: [facility] 06-04-2023 13:27-0500 Diastolic blood pressure 58 mm[Hg] MD Fidel Abbott Work Phone: [facility] 06-04-2023 13:27-0500 Heart rate 60 /min MD Fidel Abbott Work Phone: [facility] 06-04-2023 13:27-0500 Respiratory rate 12 /min MD Fidel Abbott Work Phone: [facility] 06-04-2023 13:27-0500 SaO2% (BldA) [Mass fraction] 98 % MD Fidel Abbott Work Phone: [facility] 06-04-2023 13:27-0500 Systolic blood pressure 135 mm[Hg] MD Fidel Abbott Work Phone: [facility] 06-04-2023 10:49-0500 Body height 180.34 cm MD Fidel Abbott Work Phone: [facility] 06-04-2023 10:49-0500 Body temperature 98 [degF] MD Fidel Abbott Work Phone: [facility] 06-04-2023 10:49-0500 Body weight 114.3 kg MD Fidel Abbott Work Phone: [facility] 05-06-2023 10:40-0500 Body height 177.8 cm Jonathan Bah DPM Work Phone: [facility] 05-06-2023 10:40-0500 Body mass index (BMI) [Ratio] 35.87 kg/m2 Jonathan Bah DPM Work Phone: [facility] 05-06-2023 10:40-0500 Body weight 113.4 kg Jonathan Bah DPM Work Phone: [facility] 05-06-2023 10:40-0500 Diastolic blood pressure 80 mm[Hg] Jonathan Bah DPM Work Phone: [facility] 05-06-2023 10:40-0500 Heart rate 79 /min Jonathan Bah DPM Work Phone: [facility] 05-06-2023 10:40-0500 Systolic blood pressure 133 mm[Hg] Jonathan Bah DPM Work Phone: [facility] 05-04-2023 13:06-0500 Body mass index (BMI) [Ratio] 34.8 kg/m2 MD Fidel Abbott Work Phone: [facility] 05-04-2023 12:48-0500 Body height 180.34 cm MD Fidel Abbott Work Phone: [facility] 05-04-2023 12:48-0500 Body weight 113.39 kg MD Fidel Abbott Work Phone: [facility] 05-04-2023 11:25-0500 Body temperature 97.3 [degF] MD Fidel Abbott Work Phone: [facility] 05-04-2023 11:25-0500 Diastolic blood pressure 78 mm[Hg] MD Fidel Abbott Work Phone: [facility] 05-04-2023 11:25-0500 Heart rate 64 /min MD Fidel Abbott Work Phone: [facility] 05-04-2023 11:25-0500 Respiratory rate 18 /min MD Fidel Abbott Work Phone: [facility] 05-04-2023 11:25-0500 Systolic blood pressure 177 mm[Hg] MD Fidel Abbott Work Phone: [facility] 11-09-2022 13:10-0400 Blood Pressure Location Jovanny VILLA [facility] 11-09-2022 13:10-0400 Diastolic blood pressure 72 mm[Hg] Jovanny VILLA [facility] 11-09-2022 13:10-0400 Heart rate 78 /min Jovanny VILLA [facility] 11-09-2022 13:10-0400 Systolic blood pressure 148 mm[Hg] Jovanny VILLA [facility] 06-26-2022 14:00-0400 Body temperature 97.81 [degF] Eli Pimentel MD Work Phone: [facility] [employer] [facility] 06-26-2022 14:00-0400 Diastolic blood pressure 62 mm[Hg] Eli Pimentel MD Work Phone: [facility] [employer] [facility] 06-26-2022 14:00-0400 Heart rate 70 /min Eli Pimentel MD Work Phone: [facility] 06-26-2022 14:00-0400 Respiratory rate 18 /min Eli Pimentel MD Work Phone: [employer] 06-26-2022 14:00-0400 SaO2% (BldA) [Mass fraction] 95 % Eli Pimentel MD Work Phone: [employer] 06-26-2022 14:00-0400 Systolic blood pressure 144 mm[Hg] Eli Pimentel MD Work Phone: [facility] [employer] 06-26-2022 05:30-0400 Body mass index (BMI) [Ratio] 34.28 kg/m2 Eli Pimentel MD Work Phone: [facility] 06-26-2022 05:30-0400 Body weight 111.49 kg Eli Pimentel MD Work Phone: [facility] 06-25-2022 04:54-0400 Body height 180.3 cm Eli Pimentel MD Work Phone: [facility] 06-02-2022 12:14-0500 Body height 172.72 cm MD Fidel Abbott Work Phone: [facility] 06-02-2022 12:14-0500 Body mass index (BMI) [Ratio] 41 kg/m2 MD Fidel Abbott Work Phone: [facility] 06-02-2022 12:14-0500 Body weight 122.46 kg MD Fidel Abbott Work Phone: [facility] 06-02-2022 09:52-0500 Body temperature 97 [degF] MD Fidel Abbott Work Phone: [facility] 06-02-2022 09:52-0500 Diastolic blood pressure 73 mm[Hg] MD Fidel Abbott Work Phone: [facility] 06-02-2022 09:52-0500 Heart rate 76 /min MD Fidel Abbott Work Phone: [facility] 06-02-2022 09:52-0500 Systolic blood pressure 155 mm[Hg] MD Fidel Abbott Work Phone: [facility] 03-03-2022 12:06-0500 Body height 180.34 cm MD Fidel Abbott Work Phone: [facility] 03-03-2022 12:06-0500 Body mass index (BMI) [Ratio] 34.8 kg/m2 MD Fidel Abbott Work Phone: [facility] 03-03-2022 12:06-0500 Body weight 113.39 kg MD Fidel Abbott Work Phone: [facility] 03-03-2022 11:37-0500 Body temperature 97.7 [degF] MD Fidel Abbott Work Phone: [facility] 03-03-2022 11:37-0500 Diastolic blood pressure 56 mm[Hg] MD Fidel Abbott Work Phone: [facility] 03-03-2022 11:37-0500 Heart rate 68 /min MD Fidel Abbott Work Phone: [facility] 03-03-2022 11:37-0500 Respiratory rate 18 /min MD Fidel Abbott Work Phone: [facility] 03-03-2022 11:37-0500 Systolic blood pressure 122 mm[Hg] MD Fidel Abbott Work Phone: [facility] Encounters Encounter Date Encounter Type Care Provider Facility Start: 11-22-2024 End: 11-22-2024 Refill Fidel Abbott MD [facility] Comment on above: Primary hypertension ; Benign hypertension ; Type 2 diabetes mellitus with hyperglycemia, without long-term current use of insulin (HCC); Dyslipidemia Start: 11-01-2024 End: 11-02-2024 Refill Fidel Abbott MD [facility] Comment on above: Type 2 diabetes ez itus with hyperglycemia, without long-term current use of insulin (HCC) Start: 10-10-2024 ambulatory Fidel Abbott Facility:[facility] Start: 10-02-2024 End: 10-03-2024 External Result Encounter Cathy Brar MD Work Phone: [facility] External Department Unsolicited Start: 10-02-2024 End: 10-03-2024 External Result Encounter Cathy Edwards MD Work Phone: [facility] External Department Unsolicited Start: 10-02-2024 End: 10-02-2024 Admission to same day surgery center Cathy Brar MD [facility] [place] Start: 10-02-2024 End: 10-02-2024 ambulatory Fidel Abbott MD Work Phone: [facility] Work Phone: Start: 09-26-2024 End: 09-26-2024 Clinisync [...] encounter procedure Fidel Abbott MD Work Phone: [facility] Work Phone: Start: 08-30-2024 End: 08-30-2024 ambulatory Fidel Abbott MD Work Phone: [facility] Work Phone: Start: 08-15-2024 Registered Recurring Fidel dubose MD Work Phone: [facility] [place] Work Phone: Start: 08-10-2024 End: 08-10-2024 Clinisync Result Encounter Generic External Data Provider [facility] External Department Unsolicited Start: 08-10-2024 End: 08-10-2024 Clinisync Result Encounter Generic External Data Provider [facility] External Department Unsolicited Start: 07-31-2024 End: 07-31-2024 Bamboo flowsheet Fidel Abbott MD Work Phone: [facility] Start: 07-31-2024 End: 07-31-2024 Bamboo flowsheet Fidel Abbott MD Work Phone: [facility] Start: 07-31-2024 End: 07-31-2024 Office outpatient visit 25 minutes Fidel Abbott MD Work Phone: [facility] Comment on above: Type 2 diabetes ez itus with hyperglycemia, without long-term current use of insulin ([facility]) (Primary Dx); Benign hypertension ([facility]); Major depressive disorder, recurrent episode, mild (HCC) ([facility]); Incontinence overflow, urine; Chronic superficial 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; Urticaria; Pruritus; Annual physical exam; Chronic kidney disease, stage 3a (HCC) ([facility]); Class 2 severe obesity due to excess calories with serious comorbidity and body mass index (BMI) of 36.0 to 36.9 in adult ([facility]); Type 2 diabetes mellitus with other specified complication; Hyperlipidemia, unspecified (CMS/HCC); Pressure ulcer of right heel, unstageable ([facility]); Type 2 diabetes mellitus with other skin ulcer (CODE); Paraplegia, unspecified; Diabetes mellitus due to underlying condition with diabetic polyneuropathy ([facility]) Start: 07-31-2024 End: 07-31-2024 Patient encounter procedure Fidel Abbott MD Work Phone: [facility] Start: 07-31-2024 End: 07-31-2024 ambulatory FIDEL ABBOTT Not Available Start: 05-30-2024 End: 05-30-2024 Clinisync Result Encounter Generic External Data Provider [facility] External Department Unsolicited Start: 05-30-2024 End: 05-30-2024 Clinisync Result Encounter Generic External Data Provider [facility] External Department Unsolicited Start: 05-02-2024 ambulatory ANGIE Acuna ty:CHLOE Walls Start: 04-17-2024 End: 04-17-2024 Telephone encounter Scanning Provider External [facility] Start: 04-14-2024 End: 04-14-2024 Telephone encounter Mary Conner CMA [facility] Start: 04-06-2024 End: 04-06-2024 Telephone encounter Mary Conner CMA [facility] Start: 03-14-2024 End: 03-14-2024 ambulatory Fidel Abbott MD Work Phone: [facility] Work Phone: Start: 03-14-2024 End: 03-14-2024 Discharged Recurring Fidel Abbott MD Work Phone: [facility] [place] Work Phone: Start: 03-13-2024 End: 03-13-2024 Refill Fidel Abbott MD Work Phone: [facility] Comment on above: Pruritus Start: 03-10-2024 Non-patient / Non-visit Fidel campbell MD Work Phone: [facility] Work Phone: Start: 03-10-2024 End: 03-10-2024 [...] Registered Recurring Fidel dubose MD Work Phone: [facility] [place] Work Phone: Start: 02-08-2024 End: 02-08-2024 Patient encounter procedure Fidel Abbott MD Work Phone: [facility] [place] Work Phone: Start: 02-08-2024 End: 02-08-2024 ambulatory Fidel Abbott MD Work Phone: [facility] Work Phone: Start: 01-20-2024 End: 01-20-2024 Bamboo flowsheet Fidel Abbott MD Work Phone: [facility] Start: 01-20-2024 End: 01-20-2024 Bamboo flowsheet Fidel Abbott MD Work Phone: [facility] Start: 01-20-2024 End: 01-20-2024 Office outpatient visit 15 minutes Fidel Abbott MD Work Phone: [facility] Comment on above: Urticaria (Primary D x) Start: 01-20-2024 End: 01-20-2024 ambulatory FIDEL ABBOTT Not Available Start: 01-17-2024 End: 01-17-2024 Orders Only Iraj Valdivia MD Work Phone: [facility] Comment on above: Stage 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 (CMS-HCC) (Primary Dx) Start: 01-12-2024 End: 01-12-2024 Telephone encounter Scanning Provider External [facility] Start: 12-02-2023 End: 12-02-2023 Clinisync Result Encounter Generic External Data Provider [facility] External Department Unsolicited Start: 12-02-2023 End: 12-02-2023 Clinisync Result Encounter Generic External Data Provider [facility] External Department Unsolicited Start: 11-18-2023 End: 11-18-2023 Office outpatient visit 25 minutes Fidel Abbott MD Work Phone: [facility] Comment on above: Type 2 diabetes [...] ABBOTT Not Available Start: 11-12-2023 End: 11-12-2023 Patient encounter procedure Jovanny VILLA [facility] Start: 10-11-2023 End: 10-11-2023 ambulatory Khadar [facility] Start: 07-08-2023 End: 07-08-2023 ambulatory MD Fidel Abbott Work Phone: [facility] Work Phone: Start: 07-08-2023 End: 07-08-2023 Departed Referred MD Fidel Abbott Work Phone: [facility] Start: 06-04-2023 End: 06-04-2023 Admission to same day surgery center MD Fidel Abbott Work Phone: [facility] [place] Start: 05-13-2023 Telephone encounter Sandhya Grijalva [facility] [...] underlying condition with diabetic polyneuropathy, unspecified whether buttermaker helper insulin use (CMS/HCC); Acute complete paraplegia (CMS/HCC); Acute osteomyelitis of left fibula (CMS/HCC); Foot ulcer, right, with fat layer exposed (CMS/HCC); Venous insufficiency Start: 05-04-2023 End: 05-04-2023 ambulatory MD Fidel Abbott Work Phone: [facility] Work Phone: Start: 05-04-2023 End: 05-04-2023 Discharged Recurring MD Fidel Abbott Work Phone: [facility] [place] Work Phone: Start: 11-09-2022 End: 11-09-2022 Patient encounter procedure Jovanny VILLA [facility] Start: 09-25-2022 End: 09-26-2022 ambulatory FIDEL ABBOTT [facility] Start: 09-18-2022 End: 09-21-2022 ambulatory ASHLEEKAM ERWIN [facility] Start: 09-18-2022 End: 09-20-2022 Subsequent hospital visit by physician Francisca Ultrasound Room 2 At [facility] Ultrasound Comment on above: Cauda equina syndrom e (HCC); Neurogenic bladder; Urinary retention; Urinary incontinence without sensory awareness Start: 2022 End: 2022 ambulatory [facility] Start: 07-02-2022 End: 07-03-2022 ambulatory SHELLY [facility] Start: 07-02-2022 End: 07-02-2022 Subsequent hospital visit by physician Fidel Abbott MD Work Phone: [facility] Laboratory Comment on above: Acute kidney injury (HCC); Iron deficiency anemia, unspecified iron deficiency anemia type Start: 06-22-2022 End: 06-26-2022 Evaluation and management of inpatient [facility] Start: 06-22-2022 End: 06-26-2022 Evaluation and management of inpatient Eli Pimentel MD [facility] Comment on above: Acute kidney injury (HCC) (Primary Dx); Hyperkalemia; Iron deficiency anemia, unspecified iron deficiency anemia type Start: 06-22-2022 End: 06-22-2022 ambulatory [facility] Start: 06-22-2022 End: 06-22-2022 Subsequent hospital visit by physician Fidel Abbott MD Work Phone: [facility] EKG Comment on above: Neurogenic bladder Start: 06-02-2022 End: 06-02-2022 ambulatory MD Fidel Abbott Work Phone: [facility] Work Phone: Start: 06-02-2022 End: 06-02-2022 Discharged Recurring MD Fidel Abbott Work Phone: [facility] [place] Work Phone: Start: 03-14-2022 End: 03-15-[address] CATHY BRAR Facility:[facility] Start: 03-03-2022 End: 03-03-2022 ambulatory MD Fidel Abbott Work Phone: [facility] Work Phone: Start: 03-03-2022 End: 03-03-2022 Discharged Recurring MD Fidel Abbott Work Phone: [facility] [place] Work Phone: Start: 02-26-2022 End: 02-27-[address] CATHY BRAR Facility:[facility] Start: 05-30-2021 End: 05-31-[address] FIDEL ABBOTT Facility:[facility] Start: 04-09-2017 End: 04-13-2017 Evaluation and management of inpatient MICHAELA [facility]IVEROS [facility] Procedures Date Procedure Procedure Detail Performing Clinician [...] retroperitoneal real time w/image complete Ashlee Erwin DIRECTOR OF MIDWIFERY/STAFF MIDWIFE - LUMBER MARKER Work Phone: Start: 2022 Optical urethrotomy Jovanny VILLA Start: 07-02-2022 Basic metabolic panel calcium total Hoda jose Mondragon DIRECTOR OF MIDWIFERY/STAFF MIDWIFE - LUMBER MARKER Work Phone: Start: 06-26-2022 End: 06-26-2022 COLONOSCOPY POLYPECTOMY SNARE/COLD BIOPSY Katerina Phillips MD Work Phone: Start: 06-26-2022 End: 06-26-2022 Esophagoscopy intra/transmural needle aspirat/bx Katerina Phillips MD Work Phone: Start: 06-26-2022 End: 06-26-2022 Colonoscopy Katerina Phillips MD Work Phone: Start: 06-26-2022 Esophagogastroduodenoscopy Katerina Cuadra i, MD Work Phone: Start: 06-26-2022 GLUCOSE, WHOLE BLOOD Matias Garcia MD Work Phone: Start: 06-26-2022 Blood count complete auto&auto difrntl wbc Katerina Phillips MD Work Phone: Start: 06-26-2022 Rhythm ecg 1-3 leads w/interpretation & report Unknown Provider Result Start: 06-25-2022 Blood occult peroxidase actv qual feces 1 deter Shelly GoldersKpiTripp DIRECTOR OF MIDWIFERY/STAFF MIDWIFE - LUMBER MARKER Work Phone: Start: 06-25-2022 Cul bact xcpt urine blood/stool aerobic isol Yakov Shaina Mechelle DPM Work Phone: Start: 06-25-2022 Blood count complete auto&auto difrntl wbc Katerina Phillips MD Work Phone: Start: 06-25-2022 End: 06-25-2022 Rhythm ecg 1-3 leads w/interpretation & report Unknown Provider Result Start: 06-25-2022 Antibody screen Eli Pimentel MD Work Phone: Start: 06-24-2022 Assay of troponin quantitative Zoila wright PA-C Work Phone: Start: 06-24-2022 End: 06-24-2022 Transfusion of packed red blood cells Shelly GoldersKipTripp DIRECTOR OF MIDWIFERY/STAFF MIDWIFE - LUMBER MARKER Work Phone: Start: 06-24-2022 Echo tthrc r-t 2d w/wom-mode compl spec&colr d Shelly GoldersKipTripp DIRECTOR OF MIDWIFERY/STAFF MIDWIFE - LUMBER MARKER Work Phone: Start: 06-24-2022 Blood typing serologic abo Shelly GoldersShea DIRECTOR OF MIDWIFERY/STAFF MIDWIFE - LUMBER MARKER Work Phone: Start: 06-24-2022 GLUCOSE, WHOLE BLOOD Matias Garcia MD Work Phone: Start: 06-24-2022 End: 06-24-2022 Prothrombin time Shelly Mondragon DIRECTOR OF MIDWIFERY/STAFF MIDWIFE - LUMBER MARKER Work Phone: Start: 06-24-2022 VITAMIN B12 & FOLATE Shelly GoldersShea DIRECTOR OF MIDWIFERY/STAFF MIDWIFE - LUMBER MARKER Work Phone: Start: 06-24-2022 End: 06-25-2022 Rhythm [...] ankle complete minimum 3 views Shelly Mondragon DIRECTOR OF MIDWIFERY/STAFF MIDWIFE - LUMBER MARKER Work Phone: Start: 06-23-2022 Lipid panel Zoila Villafuerte PA-C Work Phone: Start: 06-23-2022 Urnls dip stick/tablet rgnt auto w/o microscopy Eli Piemntel MD Work Phone: Start: 06-23-2022 Cul bact [...] ONTIVEROS Start: 04-10-2017 POC GLUCOSE FINGERSTICK MICHAELA ONTVIEROS Start: 04-10-2017 VL ARTERIAL PVR LOWER WO [...] filter Jovanny VILLA Urodynamic studies Jovanny Merritt [place] Plan of Treatment Date Care Activity Detail Author Start: 06-26-2032 Screening for malignant neoplasm of colon [facility] Start: 02-01-2025 End: 02-01-2025 Patient encounter procedure 02/01/2025 10:30 AM EST Office Visit [facility] [address] [place] [address] Fidel Abbott MD [address] [place] [address] [facility] Start: 11-27-2024 Influenza vaccination [facility] Start: 10-10-2024 Adult BMI Screening Adult BMI Screening [facility] Start: 10-10-2024 Tobacco Screening Tobacco Screening [facility] Start: 10-02-2024 Aerobic Culture Aerobic Culture [facility] Start: 10-02-2024 Anaerobic Culture Anaerobic Culture [facility] Start: 10-02-2024 Microscopic observation [Identifier] in Unspecified specimen by Gram stain [facility] Start: 10-02-2024 End: 10-02-2024 [facility] Start: 08-30-2024 Ankle brachial pressure index [facility] Start: 07-31-2024 End: 07-31-2025 Basic metabolic 1998 panel - Serum or Plasma Basic metabolic panel Lab Routine Annual physical exam Expected: 07/31/2024 (Approximate), Expires: 07/31/2025 [facility] Comment on above: Expected: 07/31/2024 (Approximate), Expi res: 07/31/2025 Start: 07-31-2024 End: 07-31-2025 CBC W Auto Differential panel - Blood CBC and differential Lab Routine Annual physical exam Expected: 07/31/2024 (Approximate), Expires: 07/31/2025 [facility] Comment on above: Expected: 07/31/2024 (Approximate), Expi res: 07/31/2025 Start: 07-31-2024 End: 07-31-2025 Hemoglobin A1c/Hemoglobin.total in Blood Hemoglobin A1c Lab Routine Annual physical exam Expected: 07/31/2024 (Approximate), Expires: 07/31/2025 [facility] Comment on above: Expected: 07/31/2024 (Approximate), Expi res: 07/31/2025 Start: 07-31-2024 End: 07-31-2025 Hepatic function 2000 panel - Serum or Plasma Hepatic function panel Lab Routine Annual physical exam Expected: 07/31/2024 (Approximate), Expires: 07/31/2025 [facility] Comment on above: Expected: 07/31/2024 (Approximate), Expi res: 07/31/2025 Start: 07-31-2024 End: 07-31-2025 Lipid 1996 panel - Serum or Plasma Lipid panel Lab Routine Annual physical exam Expected: 07/31/2024 (Approximate), Expires: 07/31/2025 [facility] Comment on above: Expected: 07/31/2024 (Approximate), Expi res: 07/31/2025 Start: 07-31-2024 End: 07-31-2025 Microalbumin/Creatinine panel in random Urine Microalbumin / creatinine, urine ratio Lab Routine Type 2 diabetes mellitus with hyperglycemia, without long-term current use of insulin ([facility]) Expected: 07/31/2024 (Approximate), Expires: 07/31/2025 [facility] Work Phone: Comment on above: Expected: 07/31/2024 [...] [facility] [address] [place] [phone] Fidel Abbott MD [address] [place] [phone] Arrived [facility] Comment on above: Arrived Start: 05-22-2024 End: 05-22-2024 Patient encounter procedure 05/22/2024 1:15 PM EST Office Visit [facility] [address] [place] [address] Fidel Abbott MD [address] [place] [phone] [facility] Start: 04-20-2024 End: 04-20-2024 Patient encounter procedure 04/20/2024 1:30 PM EST Office Visit N [facility] [address] [place] [phone] Iraj Valdivia MD [address] [place], [place] [phone] [facility] Start: 04-13-2024 End: 04-13-2024 Patient encounter procedure 04/13/2024 2:00 PM EST Office Visit N [facility] [address] [place] [phone] Iraj Valdivia MD [address] [place] [address] [facility] Start: 01-20-2024 End: 01-20-2024 Patient encounter procedure 01/20/2024 11:45 AM EDT Office Visit [facility] [address] [place] [phone] Fidel Abbott MD [address] [place] [phone] Arrived [facility] Comment on above: Arrived Start: 11-28-2023 Influenza vaccination [facility] Start: 11-18-2023 End: 11-17-2024 Albumin, urine, random Albumin, urine, random Lab Routine Type 2 diabetes mellitus with hyperglycemia, without long-term current use of insulin ([facility]) Expected: 11/18/2023 (Approximate), Expires: 11/17/2024 [facility] Work Phone: Comment on above: Expected: 11/18/2023 (Approximate), Expi res: 11/17/2024 Start: 11-18-2023 End: 11-17-2024 Basic metabolic 1998 panel - Serum or Plasma Basic metabolic panel Lab Routine Encounter for long-term (current) use of medications Expected: 11/18/2023 (Approximate), Expires: 11/17/2024 [facility] Comment on above: Expected: 11/18/2023 (Approximate), Expi res: 11/17/2024 Start: 11-18-2023 End: 11-17-2024 CBC W Auto Differential panel - Blood CBC and differential Lab Routine Encounter for long-term (current) use of medications Expected: 11/18/2023 (Approximate), Expires: 11/17/2024 [facility] Comment on above: Expected: 11/18/2023 (Approximate), Expi res: 11/17/2024 Start: 11-18-2023 End: 11-17-2024 Hemoglobin A1c/Hemoglobin.total in Blood Hemoglobin A1c Lab Routine Type 2 diabetes mellitus with hyperglycemia, without long-term current use of insulin ([facility]) Expected: 11/18/2023 (Approximate), Expires: 11/17/2024 [facility] Comment on above: Expected: 11/18/2023 (Approximate), Expi res: 11/17/2024 Start: 11-18-2023 End: 11-17-2024 Hepatic function 2000 panel - Serum or Plasma Hepatic function panel Lab Routine Encounter for long-term (current) use of medications Expected: 11/18/2023 (Approximate), Expires: 11/17/2024 [facility] Comment on above: Expected: 11/18/2023 (Approximate), Expi res: 11/17/2024 Start: 11-18-2023 End: 11-17-2024 Lipid 1996 panel - Serum or Plasma Lipid panel Lab Routine Type 2 diabetes mellitus with hyperglycemia, without long-term current use of insulin ([facility]) Expected: 11/18/2023 (Approximate), Expires: 11/17/2024 [facility] Comment on above: Expected: 11/18/2023 (Approximate), Expi res: 11/17/2024 Start: 10-18-2023 End: 10-18-2023 Patient encounter procedure 10/18/2023 10:00 AM EDT Office Visit [facility] [address] [place] [address] Fidel Abbott MD [address] [place] [address] [facility] Start: 09-19-2023 GFR test (Diabetes, CKD 3-4, OR last GFR 15-59) GFR test (Diabetes, CKD 3-4, OR last GFR 15-59) [facility] Start: 09-19-2023 Urine screening for protein Diabetes: Urine Protein Screening [facility] Start: 07-08-2023 Hemoglobin A1c measurement A1C test (Diabetic or Prediabetic) [facility] [employer] Start: 07-03-2023 GFR test (Diabetes, CKD 3-4, OR last GFR 15-59) GFR test (Diabetes, CKD 3-4, OR last GFR 15-59) [facility] Start: 06-27-2023 Screening for malignant neoplasm of colon [facility] [employer] Start: 06-26-2023 GFR test (Diabetes, CKD 3-4, OR last GFR 15-59) GFR test (Diabetes, CKD 3-4, OR last GFR 15-59) [facility] Start: 06-26-2023 Screening for malignant neoplasm of colon [facility] Start: 06-24-2023 Lipid panel Lipids [facility] [employer] Start: 06-23-2023 GFR test (Diabetes, CKD 3-4, OR last GFR 15-59) GFR test (Diabetes, CKD 3-4, OR last GFR 15-59) [facility] Start: 06-04-2023 [facility] Start: 05-20-2023 End: 05-20-2023 Patient encounter procedure 05/20/2023 3:10 PM EST Office Visit [facility] [address] [facility] [address] [place] [address] Jonathan Bah DPM [address] [address] [facility] Start: 05-06-2023 End: 05-06-2023 Patient encounter procedure 05/06/2023 10:20 AM EST Office Visit [facility] [address] [address] Jonathan Bah DPM [address] [address] [facility] Start: 10-27-2022 Influenza vaccination Flu vaccine (Season Ended) [facility] Start: 10-06-2022 Hemoglobin A1c measurement Diabetes: Hemoglobin A1C [facility] Start: 09-25-2022 End: 09-25-2022 Patient encounter procedure 09/25/2022 Office Visit [facility] Start: 07-08-2022 End: 07-08-2022 Patient encounter procedure 07/08/2022 Office Visit [facility] Start: 2022 End: 2022 Admission to same day surgery center 2022 Surgery IP Unit Angeles Nagy MD [address] [facility], [address] [place], [place] [id number] CYSTOSCOPY TRANSURETHROTOMY- DVIU WITH POSS TRANSURETHRAL RESECTION OF BLADDER TUMOR [facility] Comment on above: CYSTOSCOPY TRANSURETHROTOMY- DVIU WITH P OSS TRANSURETHRAL RESECTION OF BLADDER TUMOR Start: 2022 End: 2022 Cystourethroscopy w/internal urethrotomy male CYSTOSCOPY TRANSURETHROTOMY Cauda equina syndrome (HCC) 2022 8:30 AM EDT [facility] Start: 2022 Subsequent hospital visit by physician 2022 Hospital Encounter IP Unit Angeles Nagy MD [address] [facility], [address] [place], [place] [id number] [facility] Start: 07-01-2022 End: 06-27-2023 Basic metabolic 2000 panel - Serum or Plasma Basic Metabolic Panel Lab Routine Acute kidney injury (HCC) Expected: 07/01/2022, Expires: 06/27/2023 [email or web address] [facility] [employer] [facility] Work Phone: Comment on above: Expected: 07/01/2022, Expires: 4 Start: 07-01-2022 End: 06-27-2023 CBC W Auto Differential panel - Blood CBC with Auto Differential Lab Routine Acute kidney injury (HCC) Iron deficiency anemia, unspecified iron deficiency anemia type Expected: 07/01/2022, Expires: 06/27/2023 [employer] Phone: Comment on above: Expected: 07/01/2022, Expires: Start: 06-22-2022 Annual Wellness Visit (AWV) Annual Wellness Visit (AWV) [facility] Start: 10-27-2021 Influenza vaccination Flu vaccine (#1) [facility] Start: 04-09-2018 Diabetic foot examination Diabetic foot exam [facility] Start: 04-09-2018 Hemoglobin A1c measurement A1C test (Diabetic or Prediabetic) [facility] Start: 04-25-2016 Lipid panel Lipids [facility] Start: 04-24-2016 Urine screening for protein [facility] Start: 07-08-2011 Administration of varicella zoster vaccine Zoster (Shingles) Vaccine (1 of 2) [facility] Start: 07-08-2011 Shingles vaccine (1 of 2) Shingles vaccine (1 of 2) [facility] Start: 2006 Screening for malignant neoplasm of colon [facility] Start: 1980 DTaP,Tdap and Td Vaccines (1 - Tdap) DTaP,Tdap and Td Vaccines (1 - Tdap) [facility] Start: 1980 DTaP/Tdap/Td vaccine (1 - Tdap) DTaP/Tdap/Td vaccine (1 - Tdap) [facility] Start: 1980 Urine screening for protein Diabetes: Urine Protein Screening [facility] Start: 07-08-1979 Adult BMI Follow Up Plan Adult BMI Follow Up Plan [facility] Start: 07-08-1979 Glaucoma screening Diabetic retinal exam [facility] Start: 07-08-1979 Hepatitis C screening Hepatitis C screen [facility] Start: 1976 HIV screening HIV screen [facility] Start: 1973 Depression Monitoring Depression Monitoring [facility] Start: 1973 Depression Screening Depression Screening [facility] Start: 07-08-1971 Glaucoma screening Diabetes: Retinopathy Screening [facility] Start: 07-08-1967 Pneumococcal 0-64 years Vaccine (1 - PCV) Pneumococcal 0-64 years Vaccine (1 - PCV) [facility] Start: 01-06-1962 COVID-19 Vaccine (#1) COVID-19 Vaccine (#1) [facility] Start: 1960 Screening for malignant neoplasm of colon [facility] AEROBIC CULTURE AEROBIC CULTURE Lab Routine 10/02/2024 12:38 PM EDT [facility] Work Phone: ANAEROBIC CULTURE ANAEROBIC CULT URE Lab Routine 10/02/2024 12:38 PM EDT [facility] Bacteria identified in Unspecified specimen by Aerobe culture [facility] Bacteria identified in Unspecified specimen by Anaerobe culture [facility] End: 01-16-2025 Basic metabolic 2000 panel - Serum or Plasma Basic Metabolic Panel Lab Routine Stage 3a chronic kidney disease ([facility]) 1 Occurrences starting 01/17/2024 until 01/16/2025 [facility] Work Phone: Comment on above: 1 Occurrences starting 01/17/2024 until 01/16/2025 End: 01-16-2025 CBC panel - Blood by Automated count CBC without diff Lab Routine Stage 3a chronic kidney disease ([facility]) 1 Occurrences starting 01/17/2024 until 01/16/2025 [facility] Comment on above: 1 Occurrences starting 01/17/2024 until 01/16/2025 End: 06-27-2022 CBC W Auto Differential panel - Blood CBC auto differential Lab Routine Daily for 5 Days starting 06/23/2022 until 06/27/2022, 4 completed [employer] Work Phone: Comment on above: Daily for 5 Days starting 06/23/2022 unt il 06/27/2022, 4 completed Culture, Wound Aerob ic Only Culture, Wound Aerobic Only Microbiology [employer] Print 06/25/2022 12:20 PM EDT [employer] Work Phone: End: 06-25-2022 Hemoglobin and Hematocrit Hemoglobin and Hematocrit Lab Routine Post Transfusion Post Transfusion Post Transfustion until discontinued starting 06/24/2022, 1 completed [employer] Work Phone: Comment on above: Post Transfusion Post Transfusion Post T ransfustion until discontinued starting 06/24/2022, 1 completed End: 01-16-2025 Magnesium [Mass/volume] in Serum or Plasma Magnesium Lab Routine Stage 3a chronic kidney disease (CMS-HCC) 1 Occurrences starting 01/17/2024 until 01/16/2025 [employer] Comment on above: 1 Occurrences starting 01/17/2024 until 01/16/2025 Oxygen therapy [[facility] Data Set] Initiate Oxygen Therapy Protocol Respiratory Care Routine Daily until discontinued starting 06/22/2022 [employer] Phone: Comment on above: Daily until discontinued starting 2022 End: 01-16-2025 Parathyroid Hormone, intact Parathyroid Hormone, intact Lab Routine Stage 3a chronic kidney disease ([facility]) 1 Occurrences starting 01/17/2024 until 01/16/2025 [employer] Comment on above: 1 Occurrences starting 01/17/2024 until 01/16/2025 Patient Education Know your Meds [facility] Work Phone: Patient referral [facility] Work Phone: End: 01-16-2025 Phosphate [Mass/volume] in Serum or Plasma Phosphorus Lab Routine Stage 3a chronic kidney disease ([facility]) 1 Occurrences starting 01/17/2024 until 01/16/2025 [employer] Comment on above: 1 Occurrences starting 01/17/2024 until 01/16/2025 End: 06-24-2022 PREPARE RBC (CROSSMATCH), 1 Units PREPARE RBC (CROSSMATCH), 1 Units Blood Bank Routine Once for 1 Occurrences starting 06/24/2022 until 06/24/2022 [employer] Phone: Comment on above: Once for 1 Occurrences starting 06/25/19 until 06/24/2022 End: 01-16-2025 Protein creat ratio Protein creat ratio Lab Routine Stage 3a chronic [facility] disease [facility] 1 Occurrences starting 01/17/2024 until 01/16/2025 [employer] Comment on above: 1 Occurrences starting 01/17/2024 until 01/16/2025 End: 06-25-2022 Surgical Pathology Surgical Pathology Lab Routine One Time for 1 Occurrences starting 06/25/2022 until 06/25/2022 [employer] Phone: Comment on above: One Time for 1 Occurrences starting 05/29 until 06/25/2022 Surgical Pathology Surgical Path ology Lab Routine Hyperkalemia Release Upon Ordering for 1 Occurrences starting 06/26/2022 [employer] Phone: Comment on above: Release Upon Ordering for 1 Occurrences starting 06/26/2022 End: 06-25-2022 SURGICAL PATHOLOGY REPORT SURGICAL PATHOLOGY REPORT Lab Routine Once for 1 Occurrences starting 06/25/2022 until 06/25/2022 [employer] Work Phone: Comment on above: Once for 1 Occurrences starting 06/26/19 until 06/25/2022 End: 06-26-2022 SURGICAL PATHOLOGY REPORT SURGICAL PATHOLOGY REPORT Lab Routine Once for 1 Occurrences starting 06/26/2022 until 06/26/2022 [employer] Phone: Comment on above: Once for 1 Occurrences starting 06/27/19 until 06/26/2022 End: 01-16-2025 Urinalysis Urinalysis Lab Routine Stage 3a chronic kidney disease ([facility]) 1 Occurrences starting 01/17/2024 until 01/16/2025 [employer] Comment on above: 1 Occurrences starting 01/17/2024 until 01/16/2025 End: 01-16-2025 Vitamin D 25 hydroxy Vitamin D 25 hydroxy Lab Routine Stage 3a chronic kidney disease ([facility]) 1 Occurrences starting 01/17/2024 until 01/16/2025 [employer] Comment on above: 1 Occurrences starting 01/17/2024 until 01/16/2025 Immunizations Immunization Date Immunization Notes Care Provider [facility] 02-11-2023 influenza, injectabl e, quadrivalent, preservative free MD Fidel Abbott Work Phone: [facility] 02-11-2023 influenza virus vaccine, unspecified formulation Fidel Abbott MD Work Phone: [facility] 04-10-2017 influenza virus vaccine, unspecified formulation Jovanny VILLA [facility] Comment on above: Result Comment: 2022: VIS DATE: 11/02/2014 04-10-2017 influenza, injectabl e, quadrivalent, preservative free Fidel Abbott MD Work Phone: [facility] 01-28-2016 Influenza Vaccine, unspecified formulation Fidel Abbott MD Work Phone: [facility] 01-01-2015 influenza virus vaccine, unspecified formulation Jovanny VILLA [facility] 01-01-2015 influenza, seasonal, injectable MD Fidel Abbott Work Phone: [facility] 01-10-2014 influenza virus vaccine, unspecified formulation Jovanny VILLA [facility] Payers Date Payer Category Payer Self-pay [id number] 2022 [facility] - PPO ANTHEM [id number] 2021 [facility] er [id number] 2021 Unknown BCBS BCBS [id number] [id number] 2021-Present [phone] [address] [place] [address] [id number]. [id number] 2015 Unknown [id number] 2006 Medicare [id number] [id number]. [id number] 1961 Unknown [id number] 2.16.840.1.929629.3.579.2. 593 1961 Unknown [id number] 2.16.840.1.640220.3.579.2. 593 1961 Unknown [id number] 2.16.840.1.849754.3.579.2. 593 1961 Unknown [id number] 2.16.840.1.275746.3.579.2. 173 1961 Unknown [id number] 2.16.840.1.356424.3.579.2. 173 1961 Unknown [id number] 2.16.840.1.821978.3.579.2. 173 1961 Unknown [id number] 2.16.840.1.488955.3.579.2. 173 1961 Unknown [id number] 2.16.840.1.080674.3.579.2. 173 1961 Unknown [id number] 2.16.840.1.498122.3.579.2. 173 1961 Unknown [id number] 2.16.840.1.388200.3.579.2. 173 1961 Unknown [id number] 2.16.840.1.560048.3.579.2. 173 1961 Unknown [id number] 2.16.840.1.767728.3.579.2. 1286 1961 Unknown [id number] 2.16.840.1.964664.3.579.2. 1286 1961 Unknown [id number] 2.16.840.1.146915.3.579.2. 1259 1961 Unknown [id number] 2.16.840.1.801441.3.579.2. 1259 1961 Unknown [id number] 2.16.840.1.676773.3.579.2. 1259 1961 Unknown [id number] 2.16.840.1.626422.3.579.2. 727 1959 Medicare [id number] 1959 Unknown [id number] 1959 Unknown [id number] Unknown [id number] 2.16.840.1.660050.3.579.2. 531 Unknown [id number] 2.16840.1.398134.3.579.2. 531 Unknown [id number] 2.16840.1.345869.3.579.2. 531 Unknown [id number] 2.16840.1.364083.3.579.2. 531 Unknown [id number] 2.16840.1.405143.3.579.2. 531 Social History Date Type Detail Facility Start: 01-27-2022 End: 02-23-2023 Tobacco smoking status NHIS Never smoked tobacco (finding) [facility] Start: 1960 Sex Assigned At Male F [facility] Start: 06-22-2022 End: 02-23-2023 Tobacco use and exposure Smokeless tobacco non-user [employer] Phone: Start: 06-22-2022 End: 07-14-2022 Alcohol intake Current non-drinker of alcohol (finding) [employer] Phone: Start: 1960 Sex Assigned At Not on file B ON [facility] Phone: Start: 06-12-2022 End: 06-22-2022 Exposure to SARS-CoV-2 (event) Not sure [employer] Start: 06-23-2022 History SDOH Alcohol Frequency 1 [employer] Phone: Start: 06-23-2022 History SDOH Alcohol Std Drinks 0 [employer] Phone: Tobacco smoking status Never [facility] Start: 04-29-2023 End: 10-17-2023 Sex Assigned At Male [facility] Start: 04-29-2023 End: 07-31-2024 Alcohol intake Lifetime non-drinker (finding) [facility] Start: 04-29-2023 End: 10-17-2023 History of Social function [facility] Start: 11-01-2014 End: 08-30-2024 Sex Male (finding) [facility] Do you belong to any clubs or organizations such as cheondoism groups, unions, fraternal or athletic groups, or [...] 06-04-2023 Wound debridement Collagen wound matrix dressing ([id number] FDA Start: 06-04-2023 Wound debridement Collagen wound matrix dressing ()[id number] FDA Start: 06-04-2023 Wound debridement EPIFIX MESH [...] 06-04-2023 Amputation, toe Collagen wound matrix dressing ()[id number] FDA Start: 02-10-2023 Graft Subst Resorbable Mini [facility] [id number] Start: 12-25-2016 Comment on above: Description: tobramy icin recostituted with 10ml normal saline ref # [id number] exp 07/27/2018 lot # [id number] Goals Date Patient Goal Desired Activity /State Functional Status Date Assessment Result Facility 11-09-2022 Functional Status N/A [facility] Clinical Notes 07-29-2021 to 08-15-2024 Note [...] with complication acute August 30, 2024 11:16am [facility] Work Phone: 1(657) 792-955605-20-2025 Evaluation note* Diagnosis Onset Date Resolution Status [...] 0:28am Cauda equina spinal cord injury [facility] August 15, 2024 10:28am [facility] Work Phone: 1(621) 564-936205-20-2025 Evaluation note* Diagnosis Onset Date Resolution Status [...] 0:28am Cauda equina spinal cord injury [facility] August 15, 2024 10:28am Bilateral lower extremity edema acut e August 30, 2024 11:16am Open wound of both legs with complication acute August 30, 2024 1 1:16am Diabetes mellitus due to underlying condition with diabetic neuropathy, wit acute September 10:30am Pressure injury of left isch ium, stage 4 acute October 02, 2024 1 0:30am Cauda equina spinal cord injury [facility] October 02, 2024 10:30am [facility] Work Phone: 1(900) 607-607205-05-2025 History of Present illness Narrative* Fidel Abbott MD - 07/31/2024 11:20 AM EDTAssociated Problem(s): Class 2 severe obesity due to excess calories with serious comorbidity and body mass index (BMI) of 36.0 to 36.9 in adult (CMS/[facility]) Weight loss indicated. * Fidel [...] Lipid panel PSA TSH documented in this encounterSSM Health [id number] Miscellaneous Notes* Telephone Encounter - Fatemeh Ant - 04/17/2024 1:56 PM EST Pt called to reschedule new pt appt due to lack of transportation. I informed him that we have no availability in [place] until [facility] July schedule opens up. He stated he will call back the first weekof April to reschedule. documented in [facility]-2025 Telephone encounter Note* Telephone Encounter - Fatemeh Ant - 04/17/2024 1:56 PM EST Pt called to reschedule new pt appt due to lack of transportation. I informed him that we have no availability in [place] until [facility] July schedule opens up. He stated he will call back the first weekof April to reschedule. [facility]01-17-2025 Miscellaneous Notes* Telephone Encounter - Mary Conner CMA - 04/14/2024 3:23 PM EST Left message for patient to call the office back to confirm upcoming appointment 04/20 at 1:[address] Valdivia in [place]. Also stated that patient needs to get labs done prior to upcoming appointment documented in this encounterOhio State Health System01-17-2025 Telephone encounter Note* Telephone Encounter - Mary Conner CMA - 04/14/2024 3:23 PM EST Left message for patient to call the office back to confirm upcoming appointment 04/20 at 1:[address] Valdivia in [place]. Also stated that patient needs to get labs done prior to upcoming appointment [facility] Miscellaneous Notes* Telephone Encounter - Mary Conner CMA - 04/06/2024 2:38 PM EST Left message for patient to call the office back to confirm upcoming appointment 04/13 at 2:[address] Valdivia in [place]. Also stated that patient needs to get labs done prior to upcoming appointment documented in this encounterOhio State Health System01-09-2025 Telephone encounter Note* Telephone Encounter - Mary Conner CMA - 04/06/2024 2:38 PM EST Left message for patient to call the office back to confirm upcoming appointment 04/13 at 2:[address] Valdivia in [place]. Also stated that patient needs to get labs done prior to upcoming appointment [facility] [employer] [id number] Progress note Author Cathy Brar [facility] Note Date/Time March 14, 2024 11:23am [facility] [address] [place] [address] Wound Center Provider Note Signed Patient: Ganga Stinson MR#: [id number] : 1960 Acct:[id number] Age/Sex: 63 / M Copies to: MD [...] start?: 10 plus years Mode of Arrival/ Manager Wound: Personal vehicle and Family Assistive Device Used [...] Itching Wound/Ulcer Sacrum: Bed Appearance: Beefy Red, Courtland, Rolled Edges and Yellow Percent of Wound [...] Ischium: Bed Appearance: Beefy Red, Bone Palpable, Courtland and Yellow Percent of Wound Bed Granulated/Red: [...] Ischium: Bed Appearance: Beefy Red, Bone Palpable, Courtland, Rolled Edges and Yellow Percent of Wound Bed Granulated/Red: 90 Percent of Devitalized: 10 Length (cm): 0.5 Width (cm): 0.5 Depth (cm): 2.5 CM Sq: 0.250 Tunneling Position: 10:00 Tunneling Depth: 4 Surrounding Tissue Appearance: Courtland and Macerated Surrounding Tissue Temp: Warm Drainage [...] underlying condition with diabetic neuropathy,unspecified; 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 insulin Plan Continue with [...] signed by MD Cathy Brar> 03/14/24 1123 [facility] Work Phone: 1(860) 640-233212-17-2024 Evaluation note* Diagnosis Onset Date Resolution Status [...] spinal cord injury chronic March 14 10:42am [facility] Work Phone: 1(765) 594-802512-17-2024 [place] [address] Wound Center Provider Note Signed Patient: Ganga Stinson MR#: [id number] : 1960 Acct:[id number] Age/Sex: 63 / M Copies to: MD [...] start?: 10 plus years Mode of Arrival/ Manager Wound: Personal vehicle and Family Assistive Device Used [...] Itching Wound/Ulcer Sacrum: Bed Appearance: Beefy Red, Courtland, Rolled Edges and Yellow Percent of Wound [...] Ischium: Bed Appearance: Beefy Red, Bone Palpable, Courtland and Yellow Percent of Wound Bed Granulated/Red: [...] Ischium: Bed Appearance: Beefy Red, Bone Palpable, Courtland, Rolled Edges and Yellow Percent of Wound Bed Granulated/Red: 90 Percent of Devitalized: 10 Length (cm): 0.5 Width (cm): 0.5 Depth (cm): 2.5 CM Sq: 0.250 Tunneling Position: 10:00 Tunneling Depth: 4 Surrounding Tissue Appearance: Courtland and Macerated Surrounding Tissue Temp: Warm Drainage [...] underlying condition with diabetic neuropathy,unspecified; Z79.4 - [facility] (current) use of insulin Plan Continue with [...] MD DD/ 112 Signed By: 03/14/24 1123 [facility]11-12-2024 Progress note Author Cathy Brar [facility] Note Date/Time February 08, 2024 11:44am [facility] [address] [place] [address] Wound Center Provider Note Signed Patient: Ganga Stinson MR#: [id number] : 1960 Acct:[id number] Age/Sex: 63 / M Copies to: MD [...] start?: 10 plus years Mode of Arrival/ Manager Wound: Personal vehicle and Family Assistive Device Used [...] Itching Wound/Ulcer Sacrum: Bed Appearance: Beefy Red, Courtland, Rolled Edges and Yellow Percent of Wound [...] Jelly Right Ischium: Bed Appearance: Beefy Red, Courtland and Yellow Percent of Wound Bed Granulated/Red: 90 Percent of Devitalized: 10 Length (cm): 6.6 Width (cm): 7.4 Depth (cm): 4.0 CM Sq: 48.840 Undermining Position: 8-11 Undermining Depth: 3.5 Tunneling Position: 00:00 Tunneling Depth: 0 Surrounding Tissue Appearance: Rolled Edges and Rash/Irritation Surrounding Tissue Temp: Warm Drainage Amount: Large Drainage Description: Serosanguineous Drainage Odor: No Odor Left Ischium: Bed Appearance: Beefy Red, Courtland, Rolled Edges and Yellow Percent of Wound [...] underlying condition with diabetic neuropathy,unspecified; Z79.4 - [facility] (current) use of insulin Plan Continue with current dressing changes and pressure relief. Podiatry following the patient's foot ulcers. Follow-up in 1 month See Instructions for Orders See Instructions for Orders See Wound Discharge Instructions for Orders: Dictated By: Cathy Brar MD DD/ 1141 Signed By: <Electronically signed by MD Cathy Brar> 02/08/24 1144 [facility] Work Phone: [phone] Evaluation note* Diagnosis Onset Date Resolution Status [...] spinal cord injury chronic February 07 10:48am [facility] Work Phone: 1(547) 767-251611-12-2024 [place] [address] Wound Center Provider Note Signed Patient: Ganga Stinson MR#: [id number] : 1960 Acct:[id number] Age/Sex: 63 / M Copies to: MD [...] start?: 10 plus years Mode of Arrival/ Manager Wound: Personal vehicle and Family Assistive Device Used [...] Itching Wound/Ulcer Sacrum: Bed Appearance: Beefy Red, Courtland, Rolled Edges and Yellow Percent of Wound [...] Jelly Right Ischium: Bed Appearance: Beefy Red, Courtland and Yellow Percent of Wound Bed Granulated/Red: 90 Percent of Devitalized: 10 Length (cm): 6.6 Width (cm): 7.4 Depth (cm): 4.0 CM Sq: 48.840 Undermining Position: 8-11 Undermining Depth: 3.5 Tunneling Position: 00:00 Tunneling Depth: 0 Surrounding Tissue Appearance: Rolled Edges and Rash/Irritation Surrounding Tissue Temp: Warm Drainage Amount: Large Drainage Description: Serosanguineous Drainage Odor: No Odor Left Ischium: Bed Appearance: Beefy Red, Courtland, Rolled Edges and Yellow Percent of Wound [...] underlying condition with diabetic neuropathy,unspecified; 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 Podiatry following the patient's foot ulcers. Follow-up in 1 month See Instructions for Orders See Instructions for Orders See Wound Discharge Instructions for Orders: Dictated By: Cathy Brar MD DD/ 1141 Signed By: 02/08/24 1144 [facility]10-24-2024 History of Present illness Narrative * Fidel [...] and use hydroxyzine PRN. documented in this encounterSSM Health [id number] Evaluation note* Diagnosis Stage 3a chronic kidney disease ([facility])- Primary documented in this encounter [facility]10-16-2024 Miscellaneous Notes* Telephone Encounter - Fatemeh Cain - 01/12/2024 9:03 AM EDT LM to schedule new pt appt. [facility] Telephone encounter Note* Telephone Encounter - Fatemeh Cain - 01/12/2024 9:03 AM EDT SHAMEKA to schedule new pt appt. [facility]10-08-2024 Progress note Author Cathy Brar [facility] Note Date/Time January 04, 2024 11 :52am [facility] [address] [place] [address] Wound Center Provider Note Signed Patient: Ganga Stinson MR#: [id number] : 1960 Acct:[id number] Age/Sex: 63 / M Copies to: MD [...] start?: 10 plus years Mode of Arrival/ Manager Wound: Personal vehicle and Family Assistive Device Used [...] Itching Wound/Ulcer Sacrum: Bed Appearance: Beefy Red, Courtland and Yellow Percent of Wound Bed Granulated/Red: 90 Percent of Devitalized: 10 Length (cm): 2.9 Width (cm): 1.5 Depth (cm): 3 CM Sq: 4.350 Undermining Position: 360 Undermining Depth: 3.5 Surrounding Tissue Appearance: Bright Red and Rash/Irritation Surrounding Tissue Temp: Warm Drainage Amount: Large Drainage Description: Serosanguineous Drainage Odor: No Odor Right Ischium: Bed Appearance: Beefy Red, Courtland and Yellow Percent of Wound Bed Granulated/Red: 90 Percent of Devitalized: 10 Length (cm): 7 Width (cm): 7.5 Depth (cm): 4.0 CM Sq: 52.500 Undermining Position: 8-11 Undermining Depth: 4.0 Tunneling Position: 00:00 Tunneling Depth: 0 Surrounding Tissue Appearance: Rolled Edges and Rash/Irritation Surrounding Tissue Temp: Warm Drainage Amount: Large Drainage Description: Serosanguineous Drainage Odor: No Odor Left Ischium: Bed Appearance: Beefy Red, Courtland, Rolled Edges and Yellow Percent of Wound Bed Granulated/Red: 90 Percent of Devitalized: 10 Length (cm): 0.7 Width (cm): 0.8 Depth (cm): 2.9 CM Sq: 0.560 Tunneling Position: 10:00 Tunneling Depth: 3 Surrounding Tissue Appearance: Courtland Surrounding Tissue Temp: Warm Drainage Amount: Large [...] underlying condition with diabetic neuropathy,unspecified; 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 Podiatry following the patient's foot ulcers. Follow-up in 1 month See Instructions for Orders See Instructions for Orders See Wound Discharge Instructions for Orders: Dictated By: Cathy Brar MD DD/ 1050 Signed By: <Electronically signed by MD Cathy Brar> 01/04/24 1052 [facility] Work Phone: [phone]) [phone] [place] [address] Wound Center Provider Note Signed Patient: Ganga Stinson MR#: [id number] : 1960 Acct:[id number] Age/Sex: 63 / M Copies to: MD [...] start?: 10 plus years Mode of Arrival/ Manager Wound: Personal vehicle and Family Assistive Device Used [...] Itching Wound/Ulcer Sacrum: Bed Appearance: Beefy Red, Courtland and Yellow Percent of Wound Bed Granulated/Red: 90 Percent of Devitalized: 10 Length (cm): 2.9 Width (cm): 1.5 Depth (cm): 3 CM Sq: 4.350 Undermining Position: 360 Undermining Depth: 3.5 Surrounding Tissue Appearance: Bright Red and Rash/Irritation Surrounding Tissue Temp: Warm Drainage Amount: Large Drainage Description: Serosanguineous Drainage Odor: No Odor Right Ischium: Bed Appearance: Beefy Red, Courtland and Yellow Percent of Wound Bed Granulated/Red: 90 Percent of Devitalized: 10 Length (cm): 7 Width (cm): 7.5 Depth (cm): 4.0 CM Sq: 52.500 Undermining Position: 8-11 Undermining Depth: 4.0 Tunneling Position: 00:00 Tunneling Depth: 0 Surrounding Tissue Appearance: Rolled Edges and Rash/Irritation Surrounding Tissue Temp: Warm Drainage Amount: Large Drainage Description: Serosanguineous Drainage Odor: No Odor Left Ischium: Bed Appearance: Beefy Red, Courtland, Rolled Edges and Yellow Percent of Wound Bed Granulated/Red: 90 Percent of Devitalized: 10 Length (cm): 0.7 Width (cm): 0.8 Depth (cm): 2.9 CM Sq: 0.560 Tunneling Position: 10:00 Tunneling Depth: 3 Surrounding Tissue Appearance: Courtland Surrounding Tissue Temp: Warm Drainage Amount: Large [...] underlying condition with diabetic neuropathy,unspecified; 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 Podiatry following the patient's foot ulcers. Follow-up in 1 month See Instructions for Orders See Instructions for Orders See Wound Discharge Instructions for Orders: Dictated By: Cathy Brar MD DD/ 1050 Signed By: 01/04/24 1052 [facility]08-22-2024 History of Present illness Narrative * Fidel [...] panel CBC and differential documented in this encounterSSM Health [id number] Progress note Author Cathy Brar [facility] Note Date/Time November 09, 2023 1: 07pm [facility] [address] [place] [address] Wound Center Provider Note Signed Patient: Ganga Stinson MR#: [id number] : 1960 Acct:[id number] Age/Sex: 63 / M Copies to: MD [...] his foot ulcers and [facility]. Currently, [...] start?: 10 plus years Mode of Arrival/ Manager Wound: Personal vehicle and Family Assistive Device Used [...] Sacrum: Bed Appearance: Beefy Red, Bone Palpable, Courtland and Yellow Percent of Wound Bed Granulated/Red: 90 Percent of Devitalized: 10 Length (cm): 2.5 Width (cm): 2 Depth (cm): 3 CM Sq: 5.000 Undermining Position: 360 Undermining Depth: 4 Surrounding Tissue Appearance: Bright Red and Rash/Irritation Surrounding Tissue Temp: Warm Drainage Amount: Large Drainage Description: Serosanguineous Drainage Odor: No Odor Right Ischium: Bed Appearance: Beefy Red, Courtland and Yellow Percent of Wound Bed Granulated/Red: [...] Odor Left Ischium: Bed Appearance: Beefy Red, Courtland, Rolled Edges and Yellow Percent of Wound Bed Granulated/Red: 90 Percent of Devitalized: 10 Length (cm): 0.7 Width (cm): 0.8 Depth (cm): 2.3 CM Sq: 0.560 Tunneling Position: 10:00 Tunneling Depth: 3 Surrounding Tissue Appearance: Courtland Surrounding Tissue Temp: Warm Drainage Amount: Large [...] underlying condition with diabetic neuropathy,unspecified; Z79.4 - [facility] (current) use of insulin Plan Continue with [...] Cathy Brar MD DD/ 01 Signed By: <Electronically signed by MD Cathy Brar> 11/09/[address] [place] [address] Work Phone: 1(740) 481-796308-13-2024 [place] [address] Wound Center Provider Note Signed Patient: Ganga tSinson MR#: [id number] : 1960 Acct:[id number] Age/Sex: 63 / M Copies to: MD [...] his foot ulcers and he currently [facility]. Currently, [...] start?: 10 plus years Mode of Arrival/ Manager Wound: Personal vehicle and Family Assistive Device Used [...] Sacrum: Bed Appearance: Beefy Red, Bone Palpable, Courtland and Yellow Percent of Wound Bed Granulated/Red: 90 Percent of Devitalized: 10 Length (cm): 2.5 Width (cm): 2 Depth (cm): 3 CM Sq: 5.000 Undermining Position: 360 Undermining Depth: 4 Surrounding Tissue Appearance: Bright Red and Rash/Irritation Surrounding Tissue Temp: Warm Drainage Amount: Large Drainage Description: Serosanguineous Drainage Odor: No Odor Right Ischium: Bed Appearance: Beefy Red, Courtland and Yellow Percent of Wound Bed Granulated/Red: [...] Odor Left Ischium: Bed Appearance: Beefy Red, Courtland, Rolled Edges and Yellow Percent of Wound Bed Granulated/Red: 90 Percent of Devitalized: 10 Length (cm): 0.7 Width (cm): 0.8 Depth (cm): 2.3 CM Sq: 0.560 Tunneling Position: 10:00 Tunneling Depth: 3 Surrounding Tissue Appearance: Courtland Surrounding Tissue Temp: Warm Drainage Amount: Large [...] underlying condition with diabetic neuropathy,unspecified; Z79.4 - [facility] (current) use of insulin Plan Continue with [...] Cathy Brar MD DD/ 1202 Signed By: 11/09/23 1207 [facility]07-09-2024 Progress note Author Cathy Brar [facility] Note Date/Time October 05, 2023 12:20 pm [facility] [address] [place] [address] Wound Center Provider Note Signed Patient: Ganga Stinson MR#: [id number] : 1960 Acct:[id number] Age/Sex: 63 / M Copies to: MD [...] is Dr. Abbott. Patient also sees a punch press operator. Apparently he was to start on a new medication and will need to be on blood thinners because of the medication. Subjective Pain Buttock: Pain Intensity: 6 Wound/Ulcer History When did wound start?: 10 plus years Mode of Arrival/ Manager Wound: Personal vehicle and Family Assistive Device Used [...] Itching Wound/Ulcer Sacrum: Bed Appearance: Beefy Red, Courtland and Yellow Percent of Wound Bed Granulated/Red: 90 Percent of Devitalized: 10 Length (cm): 2.6 Width (cm): 1.5 Depth (cm): 2.9 CM Sq: 3.900 Undermining Position: 360 (deepest at 9) Undermining Depth: 4.5 Surrounding Tissue Appearance: Hyperpigmented Surrounding Tissue Temp: Warm Drainage Amount: Large Drainage Description: Serosanguineous Drainage Odor: No Odor Right Ischium: Bed Appearance: Beefy Red, Bone Palpable, Courtland and Yellow Percent of Wound Bed Granulated/Red: 90 Percent of Devitalized: 10 Length (cm): 5 Width (cm): 7 Depth (cm): 3.5 CM Sq: 35.000 Undermining Position: 8-11 (deepest at 9) Undermining Depth: 3.7 Surrounding Tissue Appearance: Hyperpigmented Surrounding Tissue Temp: Warm Drainage Amount: Large Drainage Description: Serosanguineous Left Ischium: Bed Appearance: Beefy Red, Courtland and Yellow Percent of Wound Bed Granulated/Red: [...] underlying condition with diabetic neuropathy,unspecified; Z79.4 - [facility] (current) use of insulin Plan Continue with current dressing changes and pressure relief. Okay to start on new medications prescribed by punch press operator. Patient and were told to monitor for evidence of bleeding from the wounds. Follow-up in about 1 month. See Instructions for Orders See Instructions for Orders See Wound Discharge Instructions for Orders: Dictated By: Cathy Brar MD DD/ 1115 Signed By: <Electronically signed by MD Cathy Brar> 10/05/23 1120 [facility] Work Phone: 1(894) 482-998007-09-2024 [place] [address] Wound Center Provider Note Signed Patient: Ganga Stinson MR#: [id number] : 1960 Acct:[id number] Age/Sex: 63 / M Copies to: MD [...] is Dr. Abbott. Patient also sees a punch press operator. Apparently he was to start on a new medication and will need to be on blood thinners because of the medication. Subjective Pain Buttock: Pain Intensity: 6 Wound/Ulcer History When did wound start?: 10 plus years Mode of Arrival/ Manager Wound: Personal vehicle and Family Assistive Device Used [...] tablet 145 mg PO QHS #0 tabs 11/18/23 [Rx Confirmed 10/05/23] oxybutynin chloride 5 mg tablet,extended release 24 hr 15 mg (3 x 5 mg) PO DAILY30 days #90 tabs 02/13/23 [Rx Confirmed 10/05/23] atorvastatin 40 mg tablet 40 mg PO DAILY 05/04/23 [History Confirmed 10/05/23] Allergies vancomycin Adverse Reaction (Severe, Verified 02/08/23 12:50) Shut kidneys down ferrous sulfate Adverse Reaction (Verified 02/07/23 15:14) Itching Wound/Ulcer Sacrum: Bed Appearance: Beefy Red, Courtland and Yellow Percent of Wound Bed Granulated/Red: 90 Percent of Devitalized: 10 Length (cm): 2.6 Width (cm): 1.5 Depth (cm): 2.9 CM Sq: 3.900 Undermining Position: 360 (deepest at 9) Undermining Depth: 4.5 Surrounding Tissue Appearance: Hyperpigmented Surrounding Tissue Temp: Warm Drainage Amount: Large Drainage Description: Serosanguineous Drainage Odor: No Odor Right Ischium: Bed Appearance: Beefy Red, Bone Palpable, Courtland and Yellow Percent of Wound Bed Granulated/Red: 90 Percent of Devitalized: 10 Length (cm): 5 Width (cm): 7 Depth (cm): 3.5 CM Sq: 35.000 Undermining Position: 8-11 (deepest at 9) Undermining Depth: 3.7 Surrounding Tissue Appearance: Hyperpigmented Surrounding Tissue Temp: Warm Drainage Amount: Large Drainage Description: Serosanguineous Left Ischium: Bed Appearance: Beefy Red, Courtland and Yellow Percent of Wound Bed Granulated/Red: [...] underlying condition with diabetic neuropathy,unspecified; 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 Okay to start on new medications prescribed by punch press operator. Patient and were told to monitor for evidence of bleeding from the wounds. Follow-up in about 1 month. See Instructions for Orders See Instructions for Orders See Wound Discharge Instructions for Orders: Dictated By: Cathy Brar MD DD/ 1115 Signed By: 10/05/23 1120 [facility]02-15-2024 Telephone encounter Note* Telephone Encounter - Sandhya Velasquez RN - 05/13/2023 3:00 PM EST Patient called to inquire about the antibiotic that was supposed to be sent after his 05/06 visit. Can you resend? Thank you! [facility] [id number] Miscellaneous Notes* Telephone Encounter - Sandhya Velasquez RN - 05/13/2023 3:00 PM EST Patient called to inquire about the antibiotic that was supposed to be sent after his 05/06 visit. Can you resend? Thank you! documented in this encounterSSM Health [id number] History of Present illness Narrative* Jonathan Bah [...] go to wound care at [facility] Patient also has Integra wound [...] or home health. Patient currently going at [facility] for decubitus ulcer Patient still awaits MRI approval as had to be resubmitted due to need for new x-ray on previous visit in awaits MRI at [facility] . 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 Ulcer of left ankle, with necrosis of bone (HCC) (CMS/HCC) 2. Diabetes mellitus due to underlying condition with diabetic polyneuropathy, unspecified whether fdc insulin use (CMS/HCC) 3. Acute complete paraplegia [...] oral antibiotics Patient to follow up with [facility] for decubitus ulcer and instructions given to contact [facility] for follow-up.. Skin flap area of [...] MRI Jonathan Bah DPM documented in this encounterSSM Health [id number] Progress note Author Cathy Brar [facility] May 04, 2023 1:07pm Note Date/Time May 04, 2023 1 2:48pm [facility] [address] [place] [address] Wound Center Provider Note Signed Patient: Ganga Stinson MR#: [id number] : 1960 Acct:[id number] Age/Sex: 62 / M Copies to: MD [...] did wound start?: years Mode of Arrival/ Manager Wound: Personal vehicle Assistive Device Used Today: Wheelchair [...] 40 mg tablet 40 mg PO DAILY 02/06/24 [History Confirmed 05/04/23] Allergies vancomycin Adverse Reaction (Severe, Verified 02/08/23 12:50) Shut kidneys down ferrous sulfate Adverse Reaction (Verified 02/07/23 15:14) Itching Wound/Ulcer Right Lateral Ankle: Bed Appearance: Courtland and Yellow Percent of Wound Bed Granulated/Red: [...] No Odor Right Medial Foot: Bed Appearance: Courtland and Yellow Percent of Wound Bed Granulated/Red: 50 Percent of Devitalized: 50 Length (cm): 1.0 Width (cm): 1.0 Depth (cm): 0.3 CM Sq: 1.000 Surrounding Tissue Appearance: Hyperpigmented Surrounding Tissue Temp: Warm Drainage Amount: Moderate Drainage Description: Serosanguineous Drainage Odor: No Odor Sacrum: Bed Appearance: Beefy Red, Courtland and Yellow Percent of Wound Bed Granulated/Red: 90 Percent of Devitalized: 10 Length (cm): 2.9 Width (cm): 1.5 Depth (cm): 2.5 CM Sq: 4.350 Undermining Position: 360 deepest at 9:00 Undermining Depth: 4.0 Surrounding Tissue Appearance: Hyperpigmented, Macerated and Callous Surrounding Tissue Temp: Warm Drainage Amount: Large Drainage Description: Serosanguineous Drainage Odor: No Odor Right Ischium: Bed Appearance: Beefy Red, Courtland and Yellow Percent of Wound Bed Granulated/Red: 90 Percent of Devitalized: 10 Length (cm): 5.3 Width (cm): 7.5 Depth (cm): 4.0 CM Sq: 39.750 Surrounding Tissue Appearance: Courtland, Macerated and Callous Surrounding Tissue Temp: Warm Drainage Amount: Large Drainage Description: Serosanguineous Drainage Odor: No Odor Left Ischium: Bed Appearance: Beefy Red and Courtland Percent of Wound Bed Granulated/Red: 100 Percent [...] underlying condition with diabetic neuropathy,unspecified; Z79.4 - [facility] (current) use of insulin (5) Foot ulcer [...] <Electronically signed by MD Cathy Brar> 05/04/23 8369 [facility] Work Phone: 1(764) 204-926208-14-2023 Hospital Discharge instructions Patient Education 11/09/2022 14:08:53 [...] Follow these instructions at home: Medicines Take jykv-lry-ufezicj and prescription medicines only as told by [...] provider. Document Revised: 12/04/2020 Document Reviewed: 12/04/2020 [employer] Patient Education 2022 [employer]. Follow Up Care 10/13/2022 11:18:02 With:ALLEN NAZARIO, Jovanny Christie, URL Address: [facility] [address] [place] [address]- [phone] When: Unknown Comments:sched cysto [facility] [place] 03-31-2023 History of Present illness [...] 06/26/2022 12:01 PM EDT Physical Therapy Facility/Department: [facility] Daily Treatment [...] 06/26/2022 12:00 PM EDT Occupational Therapy Facility/Department: [facility] Daily Treatment [...] this time. Report received at bedside from scoo. Call light within reach will continue to monitor. * Fabby Felder RN - 06/26/2022 9:35 AM EDT [facility]. [...] Crockett RN - 06/26/2022 3:00 AM EDT Operating Room Orderly at bedside for wound dressing change- pt incontinent of bowels. See flow sheet for details. * Panchito Crockett RN - 06/26/2022 1:30 AM EDT Pt incontinent of stool. Operating Room Orderly at bedside for wound change dressing per order- see flow sheet for details. * Panchito Crockett RN - 06/26/2022 12:50 AM EDT Patient at bedside for reassessment and vitals- see flow sheet for details. Pt remains alert and oriented c4-calm and cooperative. GoLYTELY at bedside and loan underwriter encourages patient to consume fluid- pt validates understanding. Patient currently denying pain and discomfort. Denying any additional needs, call light placed within reach, bed in lowest position. Operating Room Orderly encourages patient to call out for assistance. Will continue to monitor. * Panchito Crockett RN - 06/26/2022 12:45 AM EDT Operating Room Orderly at bedside- pt incontinent of stool- wound dressing changed per order. See flow sheet. * Panchito Crockett RN - 06/25/2022 10:05 PM EDT Operating Room Orderly at bedside to for wound dressing change per order. See MAR for details. * Eloise Lopez PTA - 06/25/2022 3:56 PM EDT Physical Therapy Facility/Department: [facility] Daily Treatment [...] bed. Supine BLE PROM exercises in all [id number] ea. Seated EOB AROM in LAQ 2x [...] 1402 Time Out 1430 Minutes 28 Eloise Brickner, WORLD TRAVEL COUNSELOR * Zoila Villafuerte PA-C - 06/25/2022 1:07 [...] never been a smoker. He saw a lamination operator at [facility] 2 years ago in 2020. At that [...] himself. He follows with wound clinic at [facility]. Mr. Alloway also denied any current or recent chest [...] ankle 12/30/2016 Paralysis of both lower limbs ([facility]) Paraplegia ([facility]) Type II or unspecified type diabetes mellitus without mention of complication, not stated as uncontrolled Unspecified sleep apnea CURRENT ALLERGIES: Vancomycin REVIEW OF SYSTEMS: 14 systems were reviewed. Pertinent positives and negatives as above, all else negative. Past Surgical History: Procedure Laterality Date APPENDECTOMY BACK SURGERY X2 OTHER SURGICAL HISTORY Right 04/10/2017 I&D rt foot/leg wounds [place] I&D BELOW FASCIA FOOT 1 BURSAL SPACE Right 12/25/2016 FOOT DEBRIDEMENT INCISION AND DRAINAGE, 5TH DIGIT, PARTIAL AMB. PLACEMENT OF ANTIBOTIC BEADS performed by Gabriel Haile DPM at [facility] OR [place] I&D BELOW FASCIA FOOT 1 BURSAL SPACE Right 04/10/2017 RIGHT ANKLE AND RIGHT HEEL DEBRIDEMENT INCISION AND DRAINAGE WITH CULTURES SENT performed by William Jimenez MD at [facility] OR [place] OFFICE/OUTPT VISIT,PROCEDURE ONLY Right 06/14/2017 FOOT DEBRIDEMENT INCISION AND DRAINAGE-ANKLE INCLUDING BONE BIOPSY performed by Ro Husseint [facility] OR TOE AMPUTATION Right 12/25/2016 right fifth toe amputation with I&D, ATB beads per Dr. Haile [employer] FILTER [employer]ACEMENT sandy ridge filter Social History: Social History Tobacco Use [...] Pressure injury of right ankle, stage 4 ([facility]) 06/24/2022 Open wound of right ankle 12/30/2016 Mixed hyperlipidemia 04/25/2015 Hyponatremia 04/25/2015 Diabetes mellitus ([facility]) 07/02/2011 Paraplegia ([facility]) 03/12/2011 MSSA (methicillin susceptible Staphylococcus aureus) infection 05/28/2017 Bacterial infection 02/17/2017 Enterococcus faecalis infection 12/28/2016 Skin ulcer of right heel with fat layer exposed ([facility]) 09/02/2016 Skin ulcer of right 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 ([facility]) 04/25/2015 Decubitus ulcer of coccygeal region 07/19/2013 Cauda equina syndrome ([facility]) 12/09/2011 Open wound of knee, leg (except thigh), and ankle, complicated 02/25/2011 Acute kidney injury superimposed on CKD ([facility]) 06/23/2022 Abnormal EKG 06/23/2022 Neurogenic bladder 06/23/2022 Hyperkalemia 06/22/2022 Osteomyelitis of ankle or foot, right, acute ([facility]) Decubitus ulcer of coccygeal region, stage 4 ([facility]) 04/09/2017 Cellulitis 04/08/2017 Morbid obesity due to excess calories ([facility] [facility]) 01/01/2017 Acute on chronic renal failure ([facility]) 12/30/2016 Osteomyelitis of right foot (HCC) Hypertension Depression PLAN: Pre-Op Clearance: Pre-Operative Risk assessment using 2014 ACC/AHA guidelines Emergent procedure No Active Cardiac Condition No (decompensated HF, Arrhythmia, GA <3 weeks, severe valve disease) Risk Level [...] plan. Sincerely, Zoila Villafuerte PA-C [facility] Felled Seam Operator [address] [place], [place] [id number] , I believe that the risk of [...] ankle 12/30/2016 Paralysis of both lower limbs ([facility]) Paraplegia ([facility]) Type II or unspecified type diabetes mellitus without mention of complication, not stated as uncontrolled Unspecified sleep apnea Past Surgical History: Procedure Laterality Date APPENDECTOMY BACK SURGERY X2 OTHER SURGICAL HISTORY Right 04/10/2017 I&D rt foot/leg wounds [place] I&D BELOW FASCIA FOOT 1 BURSAL SPACE Right 12/25/2016 FOOT DEBRIDEMENT INCISION AND DRAINAGE, 5TH DIGIT, PARTIAL AMB. PLACEMENT OF ANTIBOTIC BEADS performed by Gabriel Haile DPM at [facility] OR [place] I&D BELOW FASCIA FOOT 1 BURSAL SPACE Right 04/10/2017 RIGHT ANKLE AND RIGHT HEEL DEBRIDEMENT INCISION AND DRAINAGE WITH CULTURES SENT performed by William Jimenez MD at [facility] OR [place] OFFICE/OUTPT VISIT,PROCEDURE ONLY Right 06/14/2017 FOOT DEBRIDEMENT INCISION AND DRAINAGE-ANKLE INCLUDING BONE BIOPSY performed by Ro Husseint [facility] OR TOE AMPUTATION Right 12/25/2016 right [...] , IntraVENous, PRN, Shelly Mondragon APRN - DOLLY polyethylene glycol (GoLYTELY) solution 4,000 [...] Matias Garcia MD, 5,000 Units at 06/23/22 [id number] PE: VSS, Afebrile, NAD, A&O x 3, Aloof Labs: as above RLE ; lateral ankle ; FT+ ulcerative wound , +PTB IMP: stage 4 ankle decubitus, appaarent bone involvement Stable for minor bedside procedure Tx: see procedure notes P: see orders / AVS Yakov Min DPM 06/25/2022 12:28 PM * LAURENT Gomez - 06/25/2022 11:55 AM EDT Occupational Therapy Facility/Department: [facility] MED SURG Daily Treatment [...] MD 8:05 AM 06/25/2022 * Shelly MoralesShea, DIRECTOR OF MIDWIFERY/STAFF MIDWIFE - LUMBER MARKER - 06/25/2022 7:34 AM EDT Images from [...] labs-Hgb 7.6 today Nutrition status: morbid obesity Passport Application Examiner consult initiated Hospital Prophylaxis: DVT: Heparin Stress Ulcer: na Disposition: Shared decision making: All test results, treatment options and disposition options were discussed with the patient today Social determinants of health that may impact management: none Code status: Full Code Disposition: Discharge plan is home [facility] Advanced Care Planning documentation: [x] I [...] the patient's medical record. [DOES NOT SATISFY [facility] PERFORMANCE] Shelly Mondragon APRN - DOLLY , ESTELLE, BOARD MIXER TENDER-C [facility] 06/25/2022, 7:34 AM Shelly Mondragon APRN-DOLLY Associated attestation - Matias Garcia MD - 06/25/2022 7:34 PM EDT Images from the original note were not included. [address] , [place], [place], [address] Attestation Patient: Ganga Stinson Date of Admission: 06/22/2022 4:21 PM Hospital Day # 3 Date of Evaluation: 06/25/2022 I personally evaluated and examined the patient [id number] in conjunction with the PA/BOARD MIXER TENDER and agree with the management and dispostition of the patient. Please see the PA/BOARD MIXER TENDER's note for full details.My kohli findings are: [...] with the plan as outlined in the BOARD MIXER TENDER/PA's note Disposition: Discharge plan is pending Please note that this chart was generated using voice recognition [employer] dictation software. Although every effort was made to ensure the accuracy of this automated stunt person, some errors in stunt person may have occurred. Matias Garcia MD 06/25/2022 [...] Samayoa RN - 06/25/2022 12:52 AM EDT Operating Room Orderly at bedside at this time to perform [...] Samayoa RN - 06/24/2022 6:43 PM EDT Operating Room Orderly at bedside at this time to perform [...] 06/24/2022 4:57 PM EDT Physical Therapy Facility/Department: [facility] MED SURG Daily Treatment [...] Time Out 1643 Minutes 19 Martita Tam, WORLD TRAVEL COUNSELOR * Heri Valdez RN - 06/24/2022 4:00 [...] never been a smoker. He saw a lamination operator at [facility] 2 years ago in 2020. At that [...] He had blood work done with Dr. Nayg's office and was called to come to [...] himself. He follows with wound clinic at [facility]. Mr. Stinson also denied any current or recent chest pain, abdominal pain, bleeding problems, problems with his medications or any other concerns at this time. Past Medical History: Diagnosis Date Abnormal EKG 06/23/2022 Acute kidney injury superimposed on CKD (HCC) 06/23/2022 Cauda equina syndrome ([facility]) 2004 Depression Hypertension MRSA (methicillin resistant staph aureus) culture positive 04/10/2017 right ankle Open wound of right ankle 12/30/2016 Paralysis of both lower limbs ([facility]) Paraplegia ([facility]) Type II or unspecified type diabetes mellitus without mention of complication, not stated as uncontrolled Unspecified sleep apnea CURRENT ALLERGIES: Vancomycin REVIEW OF SYSTEMS: 14 systems were reviewed. Pertinent positives and negatives as above, all else negative. Past Surgical History: Procedure Laterality Date APPENDECTOMY BACK SURGERY X2 OTHER SURGICAL HISTORY Right 04/10/2017 I&D rt foot/leg wounds FL I&D BELOW FASCIA FOOT 1 BURSAL SPACE Right 12/25/2016 FOOT DEBRIDEMENT INCISION AND DRAINAGE, 5TH DIGIT, PARTIAL AMB. PLACEMENT OF ANTIBOTIC BEADS performed by Gabriel Haile DPM at [facility] OR FL I&D BELOW FASCIA FOOT 1 BURSAL SPACE Right 04/10/2017 RIGHT ANKLE AND RIGHT HEEL DEBRIDEMENT INCISION AND DRAINAGE WITH CULTURES SENT performed by William Jimenez MD at [facility] OR FL OFFICE/OUTPT VISIT,PROCEDURE ONLY Right 06/14/2017 FOOT DEBRIDEMENT INCISION AND DRAINAGE-ANKLE INCLUDING BONE BIOPSY performed by Ro Husseint [facility] OR TOE AMPUTATION Right 12/25/2016 right fifth toe amputation with I&D, ATB beads per Dr. Haile VENA CAVA FILTER PLACEMENT sandy ridge filter Social History: Social History Tobacco Use [...] Mixed hyperlipidemia 04/25/2015 Hyponatremia 04/25/2015 Diabetes mellitus ([facility]) 07/02/2011 Paraplegia ([facility]) 03/12/2011 MSSA (methicillin susceptible Staphylococcus aureus) infection 05/28/2017 Bacterial infection 02/17/2017 Enterococcus faecalis infection 12/28/2016 Skin ulcer of right heel with fat layer exposed ([facility]) 09/02/2016 Skin ulcer of right 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 ([facility]) 04/25/2015 Decubitus ulcer of coccygeal region 07/19/2013 Cauda equina syndrome ([facility]) 12/09/2011 Open wound of knee, leg (except thigh), and ankle, complicated 02/25/2011 Acute kidney injury superimposed on CKD ([facility]) 06/23/2022 Abnormal EKG 06/23/2022 Neurogenic [...] plan. Sincerely, Zoila Villafuerte PA-C [facility] Felled Seam Operator [address] [place] [address] , I believe that the risk of [...] 06/24/2022 10:32 AM EDT Occupational Therapy Facility/Department: [facility] MED SURG Daily Treatment [...] Bed Mobility Training: (positioned on side for ultra sound tech to complete ultrasound at end [...] Out 0953 Minutes 25 Gabrielle ABRAHAM/Cristina 06/24/22 * Heri [...] reach will continue to monitor. * Katerina Phillips MD - 06/24/2022 8:17 AM EDT Gastroenterology Progress Note Discussed case with primary team Anemia of hemoglobin 6; no hematemesis, no hematochezia or melena reported. Iron deficiency work-upis warranted. EGD and colonoscopy - anticipate procedure on Wednesday06/26/2022. Golytely prep on 06/25/2022 6pm MD Audra STAFFORD [facility] * Shelly Mondragon APRN - DOLLY [...] IRon Monitor labs Nutrition status: morbid obesity Passport Application Examiner consult initiated Hospital Prophylaxis: DVT: Heparin Stress [...] MIPS PERFORMANCE] ESTELLE Katz CNP , ESTELLE, BOARD MIXER TENDER-C Hospitalist Medicine 06/24/2022, 7:34 AM Blood Transfusion [...] from the original note were not included. [address] , [place], [place], [address] Attestation Patient: Ganga Stinson Date of Admission: 06/22/2022 4:21 PM Hospital Day # 2 Date of Evaluation: 06/24/2022 I personally evaluated and examined the patient [id number] in conjunction with the PA/BOARD MIXER TENDER and agree with the management and dispostition of the patient. Please see the PA/BOARD MIXER TENDER's note for full details.My kohli findings are: [...] with the plan as outlined in the BOARD MIXER TENDER/PA's note Disposition: Discharge plan is pending, GI, Cardiology, Urology consultations, Transfuse if pRBC <7, wound care to the affected area and monitor electrolytes. Please note that this chart was generated using voice recognition [employer] dictation software. Although every effort was made to ensure the accuracy of this automated stunt person, some errors in stunt person may have occurred. Matias Garcia MD 06/24/2022 9:39 PM * Geneva Samayoa RN - 06/24/2022 2:46 AM EDT Spoke with Dr. Garcia and informed him of critical lab levels. No new orders. * Geneva Samayoa RN - 06/24/2022 2:15 AM EDT Operating Room Orderly at bedside at this time to perform [...] and patient transferred over to [facility]. * Geneva Samayoa RN - 06/23/2022 9:00 PM EDT Operating Room Orderly at bedside at this time to perform [...] 06/23/2022 4:35 PM EDT Physical Therapy Facility/Department: [facility] MED SURG Daily Treatment [...] 06/23/2022 4:31 PM EDT Occupational Therapy Facility/Department: [facility] MED SURG Daily Treatment [...] 06/23/2022 2:08 PM EDT Physical Therapy Facility/Department: [facility] MED SURG Physical Therapy Initial Assessment Name: Ganga tSinson : 1960 Date of Service: 06/23/2022 Discharge [...] Ambulation Assistance: Non-ambulatory Transfer Assistance: Independent Active Molder Inflated Ball: No Additional Comments: Pt. with hx of [...] 06/23/2022 11:26 AM EDT Occupational Therapy Facility/Department: [facility] MED SURG Occupational Therapy [...] Ambulation Assistance: Non-ambulatory Transfer Assistance: Independent Active Molder Inflated Ball: No Additional Comments: Pt. with hx of [...] to Severe Extremities (+ 2 pitting BLE) Counseling Center Director Strength: Not Performed Nutrition Assessment: Altered nutrition [...] Anthropometric Measures: Height: 5' 11 (180.3 cm) Franklin Body Weight (IBW): 172 lbs (78 kg) [...] Used for Energy Requirements: Current Energy (kcal/day): 7797-1376 (20-23/kg) Weight Used for Protein Requirements: Franklin Protein (g/day): 109-133g (1.4-1.7g/kg) Method Used for [...] Nutrition Supplement [address], [place] Contact: [phone] * Panchito Crockett RN - 06/23/2022 1:00 AM EDT Operating Room Orderly at bedside for reassessment-see flow sheet for details. Patient remains alert and oriented x4-calm and cooperative. Patient continues to deny pain and discomfort. Incontinence and stewart care provided. Denying any additional needs, call light placed within reach, bed in lowest position and alarm engaged to promote patient safety. Will continue to monitor. * Panchito Crockett RN - 06/23/2022 12:00 AM EDT Operating Room Orderly attempted to place rowe catheter at this time- unable to advance 16 FR catheter. Rn Gluing Pressman notified and will attempt- will continue to monitor. Patient reports no pain or discomfort. * Panchito Crockett RN - 06/22/2022 11:12 PM EDT Operating Room Orderly phoned Dr. Garcia at this informing physician [...] continue to monitor. documented in this encounterBON [facility] Phone: [phone]) 729-817003-31-2023 Hospital Discharge instructions* Discharge Instructions* Fabby Felder [...] most local grocery stores, pharmacies, and chain [employer]-stores. If you have any questions about your diet or nutrition, call the hospital and ask for the dietitian. Regular documented in this encounterBON [facility] Work Phone: 1(520) 948-230703-07-2023 Progress note Author Cathy Brar [facility] June 02, 2022 12:14pm Note Date/Time June 02, 2022 12:1 4pm [facility] [address] [place] [address] Wound Center Provider Note Signed Patient: Ganga Stinson MR#: [id number] : 1960 Acct:[id number] Age/Sex: 61 / M Copies to: MD Fidel Whitmore MD~ HPI Date of Visit Date of Visit: Date of Service: 06/02/2022 Time of Service: 12:01 Narrative HPI: Patient is being followed for his chronic bilateral ischial, sacral and right foot ulcers. His is doing his dressing changes. Patient has been having some right hip pain and underwent a CT scan in [place] on 03/14/2022. This showed slight deepening of [...] Sacrum: Bed Appearance: Beefy Red, Bone Palpable, Courtland and Yellow Percent of Wound Bed Granulated/Red: 90 Percent of Devitalized: 10 Length (cm): 3.5 Width (cm): 1.8 Depth (cm): 2 CM Sq: 6.300 Undermining Position: 360 Undermining Depth: 3 Surrounding Tissue Appearance: Courtland Surrounding Tissue Temp: Warm Drainage Amount: Large Drainage Description: Serosanguineous Drainage Odor: No Odor Left Ischium: Bed Appearance: Beefy Red, Bone Palpable, Courtland and Yellow Percent of Wound Bed Granulated/Red: 90 Percent of Devitalized: 10 Length (cm): 7 Width (cm): 6 Depth (cm): 5.5 CM Sq: 42.000 Surrounding Tissue Appearance: Courtland Surrounding Tissue Temp: Warm Drainage Amount: Large Drainage Description: Serosanguineous Drainage Odor: No Odor Right Ischium: Bed Appearance: Beefy Red, Bone Palpable, Courtland and Yellow Percent of Wound Bed Granulated/Red: 90 Percent of Devitalized: 10 Length (cm): 0.7 Width (cm): 1 Depth (cm): 4 CM Sq: 0.700 Surrounding Tissue Appearance: Courtland Surrounding Tissue Temp: Warm Drainage Amount: Moderate Drainage Description: Serosanguineous Drainage Odor: No Odor Left Ankle: Bed Appearance: Brown, Courtland and Yellow Percent of Wound Bed Granulated/Red: 5 Percent of Devitalized: 95 Length (cm): 3.5 Width (cm): 2.5 Depth (cm): 0.1 CM Sq: 8.750 Surrounding Tissue Appearance: Courtland Surrounding Tissue Temp: Warm Drainage Amount: Moderate Drainage Description: Serosanguineous Drainage Odor: No Odor Medial Ankle: Bed Appearance: Brown, Courtland and Yellow Percent of Wound Bed Granulated/Red: 50 Percent of Devitalized: 50 Length (cm): 3.5 Width (cm): 4 Depth (cm): 0.1 CM Sq: 14.000 Surrounding Tissue Appearance: Courtland Surrounding Tissue Temp: Warm Drainage Amount: Moderate Drainage Description: Serosanguineous Drainage Odor: No Odor Medial Foot: Bed Appearance: Black Dry, Brown, Courtland and Hardware Percent of Wound Bed Granulated/Red: 5 Percent of Devitalized: 95 Length (cm): 2 Width (cm): 1.2 Depth (cm): 0.1 CM Sq: 2.400 Surrounding Tissue Appearance: Courtland Surrounding Tissue Temp: Warm Drainage Amount: Moderate [...] Diabetes mellitus type: type 2 Diabetes mellitus fdc insulin use:with fdc use Diabetes mellitus complication status: with skin complications Diabetes mellitus complication detail: with other skin ulcer Qualified Code(s): E11.622 - Type 2 diabetes mellitus with other skin ulcer; 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 insulin Code(s): E11.9 [...] <Electronically signed by MD Cathy Brar> 06/02/22 [address] [facility] Work Phone: 1(588) 346-823212-06-2022 Progress note Author Cathy Brar [facility] March 03, 2022 12:06pm Note Date/Time March 03, 2022 1 2:06pm [facility] [address] [place] [address] Wound Center Provider Note Signed Patient: Ganga Stinson MR#: [id number] : 1960 Acct:[id number] Age/Sex: 61 / M Copies to: MD [...] Ischium: Bed Appearance: Beefy Red, Bone Palpable, Courtland and Yellow Percent of Wound Bed Granulated/Red: [...] Bed Appearance: Beefy Red, Bone Palpable, Devitalized, Courtland, Yellow and Rolled Edges Percent of Wound Bed Granulated/Red: 50 Percent of Devitalized: 50 Length (cm): 0.7 Width (cm): 0.8 Depth (cm): 4.0 CM Sq: 0.560 Undermining Position: 0 Undermining Depth: 0 Surrounding Tissue Appearance: Macerated and Rolled Edges Surrounding Tissue Temp: Warm Drainage Amount: Moderate Drainage Description: Serosanguineous Drainage Odor: No Odor Lidocaine Applied Topically: 2% Jelly Right Buttock: Bed Appearance: Devitalized, Courtland and Yellow Percent of Wound Bed Granulated/Red: 100 Percent of Devitalized: 0 Length (cm): 0 Width (cm): 0 Depth (cm): 0 CM Sq: 0.000 Surrounding Tissue Appearance: Hyperpigmented Surrounding Tissue Temp: Warm Drainage Amount: None Drainage Description: Serosanguineous Drainage Odor: No Odor Lidocaine Applied Topically: 2% Jelly Right Lower Medial Leg: Bed Appearance: Courtland and Yellow Percent of Wound Bed Granulated/Red: [...] Diabetes mellitus type: type 2 Diabetes mellitus buttermaker helper insulin use:with fdc use Diabetes mellitus complication status: with skin complications Diabetes mellitus complication detail: with other skin ulcer Qualified Code(s): E11.622 - Type 2 diabetes mellitus with other skin ulcer; Z79.4 - FCI (current) use of insulin Code(s): E11.9 - [...] <Electronically signed by MD Cathy Brar> 03/03/22 [address] [facility] Work Phone: 1(487) 472-313912-02-2022 NotePROCEDURE: XR HIP RT 2 3V W [...] Electronically authenticated by: KHADAR MEDINA Date: 2022-02-27 07:17[facility]11-01-2022 Progress note Author Cathy Brar [facility] January 27, 2022 12:11pm Note Date/Time January 27, 2022 1 2:11pm [facility] [address] [place] [address] Wound Center Provider Note Signed Patient: Ganga Stinson MR#: [id number] : 1960 Acct:[id number] Age/Sex: 61 / M Copies to: MD [...] 360 Undermining Depth: 3.5 Surrounding Tissue Appearance: Courtland and Rolled Edges Surrounding Tissue Temp: Warm Drainage Amount: Large Drainage Description: Serosanguineous Drainage Odor: No Odor Lidocaine Applied Topically: 2% Jelly Right Heel: Bed Appearance: Beefy Red, Courtland and Yellow Percent of Wound Bed Granulated/Red: 50 Percent of Devitalized: 50 Length (cm): 1.0 Width (cm): 1.4 Depth (cm): 0.1 CM Sq: 1.400 Surrounding Tissue Appearance: Peeling and Dryness Surrounding Tissue Temp: Warm Drainage Amount: Small Drainage Description: Serosanguineous Drainage Odor: No Odor Lidocaine Applied Topically: 2% Jelly Right Ischium: Bed Appearance: Beefy Red, Bone Palpable, Courtland and Yellow Percent of Wound Bed Granulated/Red: [...] Bed Appearance: Beefy Red, Bone Palpable, Devitalized, Courtland, Yellow and Rolled Edges Percent of Wound Bed Granulated/Red: 50 Percent of Devitalized: 50 Length (cm): 1.5 Width (cm): 1.0 Depth (cm): 4.0 CM Sq: 1.500 Undermining Position: 10-3:00 Undermining Depth: 3.5 Surrounding Tissue Appearance: Macerated and Rolled Edges Surrounding Tissue Temp: Warm Drainage Amount: Moderate Drainage Description: Serosanguineous Drainage Odor: No Odor Lidocaine Applied Topically: 2% Jelly Right Buttock: Bed Appearance: Devitalized, Courtland and Yellow Percent of Wound Bed Granulated/Red: 100 Percent of Devitalized: 0 Length (cm): 0 Width (cm): 0 Depth (cm): 0 CM Sq: 0.000 Surrounding Tissue Appearance: Courtland Surrounding Tissue Temp: Warm Drainage Amount: None Drainage Description: Serosanguineous Drainage Odor: No Odor Lidocaine Applied Topically: 2% Jelly Right Lower Medial Leg: Bed Appearance: Courtland and Yellow Percent of Wound Bed Granulated/Red: [...] Diabetes mellitus type: type 2 Diabetes mellitus fdc insulin use:with buttermaker helper use Diabetes mellitus complication status: with skin complications Diabetes mellitus complication detail: with other skin ulcer Qualified Code(s): E11.622 - Type 2 diabetes mellitus with other skin ulcer; 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 insulin Code(s): E11.9 [...] signed by MD Cathy Brar> 01/27/22 [address] [facility] Work Phone: 1(522) 934-476109-27-2022 Progress note Author Cathy Brar [facility] December 23, 2021 12:32pm Note Date/Time December 23, 2021 12:32pm [facility] [address] [place] [address] Wound Center Provider Note Signed Patient: Ganga Stinson MR#: [id number] : 1960 Acct:[id number] Age/Sex: 61 / M Copies to: MD [...] Bed Appearance: Beefy Red, Bone Palpable, Devitalized, Courtland and Yellow Percent of Wound Bed Granulated/Red: 95 Percent of Devitalized: 5 Length (cm): 3.2 Width (cm): 2 Depth (cm): 2.5 CM Sq: 6.400 Undermining Position: 10-4:00 Undermining Depth: 5 Surrounding Tissue Appearance: Courtland and Macerated Surrounding Tissue Temp: Warm Drainage Amount: Large Drainage Description: Serosanguineous Drainage Odor: No Odor Lidocaine Applied Topically: 2% Jelly Right Heel: Bed Appearance: Beefy Red, Devitalized, Epithelial Tissue or Bridge, Courtland and Yellow Percent of Wound Bed Granulated/Red: 90 Percent of Devitalized: 10 Length (cm): 3 Width (cm): 8 Depth (cm): 0.1 CM Sq: 24.000 Surrounding Tissue Appearance: Peeling and Dryness Surrounding Tissue Temp: Warm Drainage Amount: Large Drainage Description: Serosanguineous Drainage Odor: No Odor Lidocaine Applied Topically: 2% Jelly Right Ischium: Bed Appearance: Beefy Red, Bone Palpable, Devitalized, Epithelial Tissue or Bridge, Courtland and Yellow Percent of Wound Bed Granulated/Red: 95 Percent of Devitalized: 5 Length (cm): 5 Width (cm): 5 Depth (cm): 5 CM Sq: 25.000 Undermining Position: 12-6:00 Undermining Depth: 1 Surrounding Tissue Appearance: Macerated Surrounding Tissue Temp: Warm Drainage Amount: Large Drainage Description: Serosanguineous Drainage Odor: No Odor Lidocaine Applied Topically: 2% Jelly Left Ischium: Bed Appearance: Beefy Red, Bone Palpable, Devitalized, Courtland and Yellow Percent of Wound Bed Granulated/Red: 95 Percent of Devitalized: 5 Length (cm): 1.6 Width (cm): 1.6 Depth (cm): 3.5 CM Sq: 2.560 Undermining Position: 10-3:00 Undermining Depth: 3.5 Surrounding Tissue Appearance: Macerated Surrounding Tissue Temp: Warm Drainage Amount: Moderate Drainage Description: Serosanguineous Drainage Odor: No Odor Lidocaine Applied Topically: 2% Jelly Right Buttock: Bed Appearance: Devitalized, Courtland and Yellow Percent of Wound Bed Granulated/Red: 95 Percent of Devitalized: 5 Length (cm): 1.5 Width (cm): 0.5 Depth (cm): 0.1 CM Sq: 0.750 Surrounding Tissue Appearance: Courtland and Callous Surrounding Tissue Temp: Warm Drainage Amount: Small Drainage Description: Serosanguineous Drainage Odor: No Odor Lidocaine Applied Topically: 2% Jelly Right Lower Lateral Leg: Bed Appearance: Beefy Red, Devitalized, Courtland and Yellow Percent of Wound Bed Granulated/Red: 10 Percent of Devitalized: 90 Length (cm): 0 Width (cm): 0 Depth (cm): 0 CM Sq: 0.000 Surrounding Tissue Appearance: Hyperpigmented Surrounding Tissue Temp: Warm Drainage Amount: None Drainage Description: Serosanguineous Drainage Odor: No Odor Lidocaine Applied Topically: 2% Jelly Right Lower Medial Leg: Bed Appearance: Devitalized, Epithelial Tissue or Bridge, Courtland and Yellow Percent of Wound Bed Granulated/Red: [...] Diabetes mellitus type: type 2 Diabetes mellitus fdc insulin use:with fdc use Diabetes mellitus complication status: with skin complications Diabetes mellitus complication detail: with other skin ulcer Qualified Code(s): E11.622 - Type 2 diabetes mellitus with other skin ulcer; Z79.4 - FCI (current) use of insulin Code(s): E11.9 - [...] signed by MD Cathy Brar> 12/23/21 [address] [facility] Work Phone: [phone] Progress note Author Cathy Brar [facility] November 18, 2021 11:55am Note Date/Time November 18, 2021 11 :55am [facility] [address] [place] [address] Wound Center Provider Note Signed Patient: Ganga Stinson MR#: [id number] : 1960 Acct:[id number] Age/Sex: 61 / M Copies to: MD [...] Bed Appearance: Beefy Red, Bone Palpable, Devitalized, [place] and Yellow Percent of Wound Bed Granulated/Red: 75 Percent of Devitalized: 25 Length (cm): 3.5 Width (cm): 2.0 Depth (cm): 2.5 CM Sq: 7.000 Undermining Position: 360 (deepest at 3) Undermining Depth: 3.5 Surrounding Tissue Appearance: Hyperpigmented Surrounding Tissue Temp: Warm Drainage Amount: Large Drainage Description: Serosanguineous Drainage Odor: No Odor Lidocaine Applied Topically: 2% Jelly Right Heel: Bed Appearance: Devitalized, [place] and Yellow Percent of Wound Bed Granulated/Red: 1 Percent of Devitalized: 99 Length (cm): 1.6 Width (cm): 2.3 Depth (cm): 0.1 CM Sq: 3.680 Surrounding Tissue Appearance: Hyperpigmented Surrounding Tissue Temp: Warm Drainage Amount: Large Drainage Description: Serosanguineous Drainage Odor: No Odor Lidocaine Applied Topically: 2% Jelly Right Ischium: Bed Appearance: Beefy Red, Bone Palpable, Devitalized, Epithelial Tissue or Bridge, [place] and Yellow Percent of Wound Bed Granulated/Red: [...] Bed Appearance: Beefy Red, Bone Palpable, Devitalized, [place] and Yellow Percent of Wound Bed Granulated/Red: 90 Percent of Devitalized: 10 Length (cm): 2.0 Width (cm): 2.0 Depth (cm): 3.5 CM Sq: 4.000 Undermining Position: 9-11:00 Undermining Depth: 4.0 Surrounding Tissue Appearance: Hyperpigmented Surrounding Tissue Temp: Warm Drainage Amount: Moderate Drainage Description: Serosanguineous Drainage Odor: No Odor Lidocaine Applied Topically: 2% Jelly Right Buttock: Bed Appearance: Beefy Red, Devitalized, [place] and Yellow Percent of Wound Bed Granulated/Red: 95 Percent of Devitalized: 5 Length (cm): 2.4 Width (cm): 1.0 Depth (cm): 0.1 CM Sq: 2.400 Surrounding Tissue Appearance: Hyperpigmented Surrounding Tissue Temp: Warm Drainage Amount: Moderate Drainage Description: Serosanguineous Drainage Odor: No Odor Lidocaine Applied Topically: 2% Jelly Right Lower Lateral Leg: Bed Appearance: Beefy Red, Devitalized, [place] and Yellow Percent of Wound Bed Granulated/Red: 10 Percent of Devitalized: 90 Length (cm): 1.3 Width (cm): 1.4 Depth (cm): 0.1 CM Sq: 1.820 Surrounding Tissue Appearance: Hyperpigmented Surrounding Tissue Temp: Warm Drainage Amount: Moderate Drainage Description: Serosanguineous Drainage Odor: No Odor Lidocaine Applied Topically: 2% Jelly Right Lower Medial Leg: Bed Appearance: Black Dry, Devitalized, Epithelial Tissue or Bridge, [place] and Yellow Percent of Wound Bed Granulated/Red: [...] Diabetes mellitus type: type 2 Diabetes mellitus fdc insulin use:with fdc use Diabetes mellitus complication status: with skin complications Diabetes mellitus complication detail: with other skin ulcer Qualified Code(s): E11.622 - Type 2 diabetes mellitus with other skin ulcer; Z79.4 - FCI (current) use of insulin Code(s): E11.9 - [...] <Electronically signed by MD Cathy Brar> 11/18/[address] [place] [address] Work Phone: [phone] 680-935307-26-2022 Progress note Author Cathy Brar [facility] October 21, 2021 11:44am Note Date/Time October 21, 2021 11:4 4am [facility] [address] [place] [address] Wound Center Provider Note Signed Patient: Ganga Stinson MR#: [id number] : 1960 Acct:[id number] Age/Sex: 61 / M Copies to: MD [...] Bed Appearance: Beefy Red, Bone Palpable, Devitalized, [place] and Yellow Percent of Wound Bed Granulated/Red: 75 Percent of Devitalized: 25 Length (cm): 4.2 Width (cm): 3.0 Depth (cm): 3.0 CM Sq: 12.600 Undermining Position: 360 (deepest at 3) Undermining Depth: 3.5 Surrounding Tissue Appearance: Hyperpigmented Surrounding Tissue Temp: Warm Drainage Amount: Large Drainage Description: Serosanguineous Drainage Odor: No Odor Lidocaine Applied Topically: 2% Jelly Right Heel: Bed Appearance: Devitalized, [place] and Yellow Percent of Wound Bed Granulated/Red: 50 Percent of Devitalized: 50 Length (cm): 2.3 Width (cm): 3.2 Depth (cm): 0.1 CM Sq: 7.360 Surrounding Tissue Appearance: Hyperpigmented Surrounding Tissue Temp: Warm Drainage Amount: Large Drainage Description: Serosanguineous Drainage Odor: No Odor Lidocaine Applied Topically: 2% Jelly Right Ischium: Bed Appearance: Beefy Red, Bone Palpable, Devitalized, Epithelial Tissue or Bridge, [place] and Yellow Percent of Wound Bed Granulated/Red: [...] Bed Appearance: Beefy Red, Bone Palpable, Devitalized, [place] and Yellow Percent of Wound Bed Granulated/Red: 90 Percent of Devitalized: 10 Length (cm): 3.0 Width (cm): 1.6 Depth (cm): 4.5 CM Sq: 4.800 Undermining Position: 9-11:00 Undermining Depth: 1.0 Surrounding Tissue Appearance: Hyperpigmented Surrounding Tissue Temp: Warm Drainage Amount: Moderate Drainage Description: Serosanguineous Drainage Odor: No Odor Lidocaine Applied Topically: 2% Jelly Right Buttock: Bed Appearance: Beefy Red, Devitalized, [place] and Yellow Percent of Wound Bed Granulated/Red: 80 Percent of Devitalized: 20 Length (cm): 2.2 Width (cm): 1.1 Depth (cm): 0.1 CM Sq: 2.420 Surrounding Tissue Appearance: Hyperpigmented Surrounding Tissue Temp: Warm Drainage Amount: Moderate Drainage Description: Serosanguineous Drainage Odor: No Odor Lidocaine Applied Topically: 2% Jelly Right Lower Lateral Leg: Bed Appearance: Beefy Red, Devitalized, [place] and Yellow Percent of Wound Bed Granulated/Red: 10 Percent of Devitalized: 90 Length (cm): 1.3 Width (cm): 1.4 Depth (cm): 0.1 CM Sq: 1.820 Surrounding Tissue Appearance: Hyperpigmented Surrounding Tissue Temp: Warm Drainage Amount: Moderate Drainage Description: Serosanguineous Drainage Odor: No Odor Lidocaine Applied Topically: 2% Jelly Right Lower Medial Leg: Bed Appearance: Black Dry, Devitalized, [place] and Yellow Percent of Wound Bed Granulated/Red: 80 Percent of Devitalized: 20 Length (cm): 1.6 Width (cm): 2.5 Depth (cm): 0.1 CM Sq: 4.000 Surrounding Tissue Appearance: Hyperpigmented Surrounding Tissue Temp: Warm Drainage Amount: Moderate Drainage Description: Serosanguineous Drainage Odor: No Odor Lidocaine Applied Topically: 2% Jelly Right Foot: Bed Appearance: Beefy Red, Devitalized, Epithelial Tissue or Bridge, [place] and Yellow Percent of Wound Bed Granulated/Red: [...] Diabetes mellitus type: type 2 Diabetes mellitus fdc insulin use:with fdc use Diabetes mellitus complication status: with skin complications Diabetes mellitus complication detail: with other skin ulcer Qualified Code(s): E11.622 - Type 2 diabetes mellitus with other skin ulcer; Z79.4 - FCI (current) use of insulin Code(s): E11.9 - [...] signed by MD Cathy Brar> 10/21/21 1144 [facility] Work Phone: 1(529) 630-444106-21-2022 Progress note Author Cathy Brar [facility] September 16, 2021 11:55am Note Date/Time September 16, 2021 11:5 1am [facility] [address] [place] [address] Wound Center Provider Note Signed Patient: Ganga Stinson MR#: [id number] : 1960 Acct:[id number] Age/Sex: 61 / M Copies to: MD [...] Wound/Ulcer Sacrum: Bed Appearance: Bone Palpable, Devitalized, [place] and Yellow Percent of Wound Bed Granulated/Red: [...] Heel: Bed Appearance: Black Moist, Brown, Devitalized, [place] and Yellow Percent of Wound Bed Granulated/Red: 95 Percent of Devitalized: 5 Length (cm): 3.4 Width (cm): 5.1 Depth (cm): 0.1 CM Sq: 17.340 Surrounding Tissue Appearance: Hyperpigmented Surrounding Tissue Temp: Warm Drainage Amount: Large Drainage Description: Serosanguineous Drainage Odor: No Odor Lidocaine Applied Topically: 2% Jelly Right Ischium: Bed Appearance: Beefy Red, Devitalized, Epithelial Tissue or Bridge, [place] and Yellow Percent of Wound Bed Granulated/Red: 90 Percent of Devitalized: 10 Length (cm): 5.1 Width (cm): 5.5 Depth (cm): 4 CM Sq: 28.050 Undermining Position: 1-3:00 Undermining Depth: 1.5 Surrounding Tissue Appearance: Hyperpigmented Surrounding Tissue Temp: Warm Drainage Amount: Large Drainage Description: Serosanguineous Drainage Odor: No Odor Lidocaine Applied Topically: 2% Jelly Left Ischium: Bed Appearance: Beefy Red, Bone Palpable, Devitalized, [place] and Yellow Percent of Wound Bed Granulated/Red: 90 Percent of Devitalized: 10 Length (cm): 3.9 Width (cm): 1.8 Depth (cm): 5 CM Sq: 7.020 Undermining Position: 9-11:00 Undermining Depth: 2.2 Surrounding Tissue Appearance: Hyperpigmented Surrounding Tissue Temp: Warm Drainage Amount: Moderate Drainage Description: Serosanguineous Drainage Odor: No Odor Lidocaine Applied Topically: 2% Jelly Right Buttock: Bed Appearance: Beefy Red, Devitalized, [place] and Yellow Percent of Wound Bed Granulated/Red: 99 Percent of Devitalized: 1 Length (cm): 2.3 Width (cm): 0.9 Depth (cm): 0.2 CM Sq: 2.070 Surrounding Tissue Appearance: Hyperpigmented Surrounding Tissue Temp: Warm Drainage Amount: Moderate Drainage Description: Serosanguineous Drainage Odor: No Odor Lidocaine Applied Topically: 2% Jelly Right Lower Lateral Leg: Bed Appearance: Beefy Red, Devitalized, [place] and Yellow Percent of Wound Bed Granulated/Red: 20 Percent of Devitalized: 80 Length (cm): 3.8 Width (cm): 2.3 Depth (cm): 0.1 CM Sq: 8.740 Surrounding Tissue Appearance: Hyperpigmented Surrounding Tissue Temp: Warm Drainage Amount: Moderate Drainage Description: Serosanguineous Drainage Odor: No Odor Lidocaine Applied Topically: 2% Jelly Right Lower Medial Leg: Bed Appearance: Black Dry, Devitalized, [place] and Yellow Percent of Wound Bed Granulated/Red: 75 Percent of Devitalized: 25 Length (cm): 2.5 Width (cm): 2.7 Depth (cm): 0.2 CM Sq: 6.750 Surrounding Tissue Appearance: Hyperpigmented Surrounding Tissue Temp: Warm Drainage Amount: Moderate Drainage Description: Serosanguineous Drainage Odor: No Odor Lidocaine Applied Topically: 2% Jelly Right Foot: Bed Appearance: Beefy Red, Devitalized, Epithelial Tissue or Bridge, [place] and Yellow Percent of Wound Bed Granulated/Red: [...] Diabetes mellitus type: type 2 Diabetes mellitus fdc insulin use:with buttermaker helper use Diabetes mellitus complication status: with skin complications Diabetes mellitus complication detail: with other skin ulcer Qualified Code(s): E11.622 - Type 2 diabetes mellitus with other skin ulcer; Z79.4 - FCI (current) use of insulin Code(s): E11.9 - [...] <Electronically signed by MD Cathy Brar> 09/16/21 9[address] [facility] Work Phone: 1(261) 169-813605-03-2022 Progress note Author Cathy Brar [facility] July 29, 2021 12:33pm Note Date/Time July 29, 2021 12:33p m [facility] [address] [place] [address] Wound Center Provider Note Signed Patient: Ganga Stinson MR#: [id number] : 1960 Acct:[id number] Age/Sex: 61 / M Copies to: MD [...] down Wound/Ulcer Sacrum: Bed Appearance: Bone Palpable, [place] and Yellow Percent of Wound Bed Granulated/Red: 50 Percent of Devitalized: 50 Length (cm): 2.6 Width (cm): 2.0 Depth (cm): 3.0 CM Sq: 5.200 Undermining Position: 9-4 (deepest at 4) Undermining Depth: 5.4 Surrounding Tissue Appearance: Hyperpigmented Surrounding Tissue Temp: Warm Drainage Amount: Large Drainage Description: Serosanguineous Drainage Odor: No Odor Lidocaine Applied Topically: 2% Jelly Right Heel: Bed Appearance: Black Moist, Brown, [place] and Yellow Percent of Wound Bed Granulated/Red: 15 Percent of Devitalized: 85 Length (cm): 6.0 Width (cm): 9.0 Depth (cm): 0.5 CM Sq: 54.000 Surrounding Tissue Appearance: Hyperpigmented Surrounding Tissue Temp: Warm Drainage Amount: Large Drainage Description: Serosanguineous Drainage Odor: No Odor Lidocaine Applied Topically: 2% Jelly Right Ischium: Bed Appearance: Beefy Red, Epithelial Tissue or Bridge, [place] and Yellow Percent of Wound Bed Granulated/Red: 50 Percent of Devitalized: 50 Length (cm): 9.3 Width (cm): 7.9 Depth (cm): 5.2 CM Sq: 73.470 Undermining Position: 360 (deepest at 7) Undermining Depth: 2.3 Surrounding Tissue Appearance: Hyperpigmented Surrounding Tissue Temp: Warm Drainage Amount: Large Drainage Description: Serosanguineous Drainage Odor: No Odor Lidocaine Applied Topically: 2% Jelly Left Ischium: Bed Appearance: [place] and Yellow Percent of Wound Bed Granulated/Red: 50 Percent of Devitalized: 50 Length (cm): 1.7 Width (cm): 1.5 Depth (cm): 3.5 CM Sq: 2.550 Undermining Position: 3-8 Undermining Depth: 4.5 Surrounding Tissue Appearance: Hyperpigmented Surrounding Tissue Temp: Warm Drainage Amount: Moderate Drainage Description: Serosanguineous Drainage Odor: No Odor Lidocaine Applied Topically: 2% Jelly Right Buttock: Bed Appearance: Beefy Red, [place] and Yellow Percent of Wound Bed Granulated/Red: 75 Percent of Devitalized: 25 Length (cm): 6.6 Width (cm): 2.0 Depth (cm): 0.1 CM Sq: 13.200 Surrounding Tissue Appearance: Hyperpigmented Surrounding Tissue Temp: Warm Drainage Amount: Moderate Drainage Description: Serosanguineous Drainage Odor: No Odor Lidocaine Applied Topically: 2% Jelly Right Lower Lateral Leg: Bed Appearance: Beefy Red, [place] and Yellow Percent of Wound Bed Granulated/Red: 50 Percent of Devitalized: 50 Length (cm): 1.8 Width (cm): 1.5 Depth (cm): 0.1 CM Sq: 2.700 Surrounding Tissue Appearance: Hyperpigmented Surrounding Tissue Temp: Warm Drainage Amount: Moderate Drainage Description: Serosanguineous Drainage Odor: No Odor Lidocaine Applied Topically: 2% Jelly Right Lower Medial Leg: Bed Appearance: Black Dry, [place] and Yellow Percent of Wound Bed Granulated/Red: [...] Diabetes mellitus type: type 2 Diabetes mellitus fdc insulin use:with fdc use Diabetes mellitus complication status: with skin complications Diabetes mellitus complication detail: with other skin ulcer Qualified Code(s): E11.622 - Type 2 diabetes mellitus with other skin ulcer; 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 insulin Code(s): E11.9 [...] will attempt to obtain that note from lamination operator in [place]. See Instructions for Orders See Instructions for Orders See Wound Discharge Instructions for Orders: Patient may require serial debridement to remove devitalized tissue and encourage granulation. Dictated By: Cathy Brar MD DD/ [id number] Signed By: <Electronically signed by MD Cathy Brar> 07/29/21 1233 [facility] Work Phone: Evaluation + Plan note No data available for this section [facility] evaluation note* Diagnosis Onset Date Resolution Status Right hip pain acute Stage IV pressure ulcer of sacral region acute Unstageable pressure ulcer of right heel acute Cauda equina spinal cord injury chronic Diabetes chronic Pressure ulcer of left hip, stage 3 resolved Pressure ulcer of right hip, stage 3 resolved [facility] Work Phone: Evaluation note* Diagnosis Neurogenic bladder Neurogenic bladder, NOS documented in this encounter [facility] Work Phone: evaluation note* Diagnosis Neurogenic bladder Neurogenic bladder, NOS documented in this encounter [facility] Phone: [email or web address] note* Diagnosis Hyperkalemia- Primary Hyperpotassemia Acute kidney [...] of neurogenic bladder documented in this encounter [facility] Phone: [email or web address] note* Diagnosis Acute kidney injury (HCC) Acute kidney failure, unspecified Iron deficiency anemia, unspecified iron deficiency anemia type documented in this encounter [facility] Phone: evaluation note* Diagnosis Onset Date Resolution Status Pressure injury of left ischium, stage 4 acute Pressure injury of right ischium, stage 4 acute Pressure ulcer of right foot, stage 2 acute Right hip pain acute 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 Diabetes [facility] Work Phone: Evaluation note* Diagnosis Cauda equina syndrome (HCC) Cauda equina syndrome without mention of neurogenic bladder Neurogenic bladder Neurogenic bladder, NOS Urinary retention Retention of urine, unspecified Urinary incontinence without sensory awareness Incontinence without sensory awareness documented in this encounter [facility] Conjecta note* Diagnosis Cellulitis of left foot- Primary Ulcer of left ankle, with necrosis of bone (HCC) ([facility]) Diabetes mellitus due to underlying condition with diabetic polyneuropathy, unspecified whether fdc insulin use ([facility]/HCC) Acute complete paraplegia ([facility]/HCC) Acute osteomyelitis of left fibula ([facility]/HCC) Foot ulcer, right, with fat layer exposed ([facility]) Venous insufficiency Unspecified venous (peripheral) insufficiency documented in this encounter [facility] HealthcareEvaluation note* Diagnosis Abscess of toe, right- Primary documented in this encounter [facility] HealthcareEvaluation note* Diagnosis Onset Date Resolution Status [id number] acute Foot ulcer with fat layer exposed acute Stage IV pressure ulcer of right buttock acute 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 buttock, stage 3 chronic [facility] Work Phone: Evaluation note* Diagnosis Type 2 diabetes mellitus with hyperglycemia, without long-term current use of insulin ([facility]/HCC)- Primary Dyslipidemia (CMS/HCC) Other and unspecified hyperlipidemia Benign hypertension (CMS/HCC) Essential hypertension, benign Major depressive disorder, recurrent episode, mild (HCC) ([facility]/HCC) Major depressive disorder, recurrent episode, mild Incontinence overflow, urine Overflow incontinence Chronic 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) Encounter for long-term (current) use of medications Encounter for long-term (current) use of other medications Cauda equina syndrome ([facility]) Cauda equina syndrome without mention of neurogenic bladder Urticaria- Primary Unspecified urticaria documented in this encounter [facility] HealthcareEvaluation note* Diagnosis Type 2 diabetes [...] disorder Chronic kidney disease, stage 3a (HCC) ([facility]) Encounter for long-term (current) use of medications Encounter for long-term (current) use of other medications Cauda equina syndrome ([facility]/HCC) Cauda equina syndrome without mention of neurogenic bladder Urticaria- Primary Unspecified urticaria Pruritus Unspecified pruritic disorder documented in this encounter [facility] HealthcareEvaluation note* Diagnosis Type 2 diabetes mellitus with hyperglycemia, without long-term current use of insulin ([facility])- Primary Benign hypertension ([facility]) Essential hypertension, benign Major depressive disorder, recurrent episode, mild (HCC) ([facility]) Major depressive disorder, recurrent episode, mild Incontinence overflow, urine Overflow incontinence Pruritus Unspecified pruritic disorder Chronic kidney disease, stage 3a (HCC) ([facility]) Encounter for long-term (current) use of medications Encounter for long-term (current) use of other medications Cauda equina syndrome ([facility]) Cauda equina syndrome without mention of neurogenic bladder documented in this encounter [facility] HealthcareEvaluation note* Diagnosis Type 2 diabetes mellitus with hyperglycemia, without long-term current use of insulin ([facility])- Primary Dyslipidemia ([facility]) Other and unspecified hyperlipidemia Benign hypertension ([facility]) Essential hypertension, benign Major depressive disorder, recurrent episode, mild (HCC) ([facility]) Major depressive disorder, recurrent episode, mild Incontinence overflow, urine Overflow incontinence Chronic superficial 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 Type 2 diabetes mellitus with hyperglycemia, without long-term current use of insulin ([facility])- Primary Benign hypertension ([facility]) Essential hypertension, benign Major depressive disorder, recurrent episode, mild (HCC) ([facility]) Major depressive disorder, recurrent episode, mild Incontinence overflow, urine Overflow incontinence Pruritus Unspecified pruritic disorder Chronic kidney disease, stage 3a (HCC) ([facility]) Encounter for long-term (current) use of medications Encounter for long-term (current) use of other medications Cauda equina syndrome ([facility]) Cauda equina syndrome without mention of neurogenic bladder Urticaria- Primary Unspecified urticaria Type 2 diabetes mellitus with hyperglycemia, without long-term current use of insulin ([facility])- Primary Benign hypertension ([facility]) Essential hypertension, benign Major depressive disorder, recurrent episode, mild (HCC) ([facility]) Major depressive disorder, recurrent episode, mild Incontinence overflow, urine Overflow incontinence Chronic superficial 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 Urticaria Unspecified urticaria Pruritus Unspecified pruritic disorder Annual physical exam Routine general medical examination at a health care facility Chronic kidney disease, stage 3a (HCC) ([facility]) Class 2 severe obesity due to excess calories with serious comorbidity and body mass index (BMI) of 36.0 to 36.9 in adult ([facility]) Type 2 diabetes mellitus with other specified complication Hyperlipidemia, unspecified (CMS/HCC) Pressure ulcer of right heel, unstageable ([facility]) Type 2 diabetes mellitus with other skin ulcer (CODE) Paraplegia, unspecified Diabetes mellitus due to underlying condition with diabetic polyneuropathy ([facility]) documented in this encounter [facility] HealthcareEvaluation note* Diagnosis Type 2 diabetes [...] pruritic disorder Chronic kidney disease, stage 3a ([facility]) Encounter for long-term (current) use [...] care facility Chronic kidney disease, stage 3a ([facility]) Class 2 severe obesity due to excess calories with serious comorbidity and body mass index (BMI) of 36.0 to 36.9 in adult ([facility]) Type 2 diabetes mellitus with other specified complication (HCC) Hyperlipidemia, unspecified Pressure ulcer of right heel, unstageable (CMS-HCC) Type 2 diabetes mellitus with other skin ulcer (CODE) (HCC) Paraplegia, unspecified (HCC) Diabetes mellitus due to underlying condition with diabetic polyneuropathy (HCC) Type 2 diabetes mellitus with hyperglycemia, without long-term current use of insulin (HCC) documented in this encounter [facility] HealthcareEvaluation note* Diagnosis Type 2 diabetes [...] pruritic disorder Chronic kidney disease, stage 3a ([facility]) Encounter for long-term (current) use of medications Encounter for long-term (current) use of other medications Cauda equina syndrome ([facility]) Cauda equina syndrome without mention [...] care facility Chronic kidney disease, stage 3a ([facility]) Class 2 severe obesity due to excess calories with serious comorbidity and body mass index (BMI) of 36.0 to 36.9 in adult ([facility]) Type 2 diabetes mellitus with other specified complication (HCC) Hyperlipidemia, unspecified Pressure ulcer of right heel, unstageable ([facility]) Type 2 diabetes mellitus with other skin ulcer (CODE) ([facility]) Paraplegia, unspecified (HCC) Diabetes mellitus due to underlying condition with diabetic polyneuropathy ([facility]) Primary hypertension Unspecified essential hypertension Benign hypertension Essential hypertension, benign Type 2 diabetes mellitus with hyperglycemia, without long-term current use of insulin (HCC) Dyslipidemia Other and unspecified hyperlipidemia documented in this encounter [facility] HealthcareHospital Discharge instructions Additional Instructions DISCHARGE [...] operative site FOLLOW UP Phone numbers: Office [phone] [facility] Work Phone: Hospital Discharge instructions No data available for this section [facility] Hospital Discharge instructions Additional Instructions Wound/Ulcer Instructions/Orders Left Ischium: Dressing: Cleanse with Dakins or saline, saline on 4X4 gauze packing or kerlix, ABD, Kerlix, drawtex, Secure/wrap: Skin prep prior to adhesive [facility] Work Phone: InstructionsNot on filedocumented in this encounter [facility] System[facility] note No data available for this section [facility] reason for referral (narrative)No reason for referral information [facility] Work Phone: Summary Purpose Family History No [...] Fibula Osteomyelitis, Diabetes, Ulcerative Reason for Visit [id number] Foot ulcer with fat layer exposed 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 Cauda equina spinal cord injury Pressure ulcer of left buttock, stage 3 Chief Complaint Open Wound Left Fibula Osteomyelitis, Diabetes, Ulcerative Unknown Reason for Visit [id number] Foot ulcer with fat layer exposed Stage [...] EKG 12 Lead Angeles Nagy MD [address], [address] [place] [address] Referral ID Status Reason Start Date Expiration Date V isits Requested Visits Authorized [id number] Pending Review 06/22/2022 06/22/2023 1 1 Specialty Diagnoses / Procedures Referred By Contac t Referred To Contact Radiology Diagnoses Cauda equina syndrome (HCC) Neurogenic bladder Urinary retention Urinary incontinence without sensory awareness Procedures US RENAL COMPLETE Ashlee Erwin, DIRECTOR OF MIDWIFERY/STAFF MIDWIFE - LUMBER MARKER [address] [place] [address] Referral ID Status Reason Start Date Expiration Date Visits Re quested Visits Authorized [id number] Open 09/18/2022 09/18/2023 1 1 Additional Source Comments (unrecognized sect ion and content) No Status Records FoundNo Status Records FoundNo Status Records FoundNo Status Records FoundNo Status Records FoundNo Status Records FoundNo Status Records Found INFORMATION SOURCE (unrecogn ized section and content) DATE CREATED AUTHOR 09/21/2017 [facility] DATE CREATED AUTHOR AUTHOR'S ORGANIZ ATION 04/08/2022 [facility] DATE CREATED AUTHOR AUTHOR'S ORGANIZ ATION 09/27/2022 [facility] DATE CREATED AUTHOR AUTHOR'S ORGANIZ ATION 10/22/2023 [facility] DATE CREATED AUTHOR AUTHOR'S ORGANIZ ATION 08/03/2024 [facility] EPIC DATE CREATED AUTHOR AUTHOR'S ORGANIZ ATION 12/06/2024 [facility] DATE CREATED AUTHOR AUTHOR'S ORGANIZ ATION 12/09/2024 [place] [facility] (unrecognized sec tion and content) [...] Active Cathy Brar MD Attending Provider Active Air Moving Technician Relationship Specialty Start Date End Date Fidel Abbott MD PCP - General 07/03/15 Air Moving Technician Relationship Specialty Start Date End Date Fidel Abbott MD PCP - General 07/03/15 Air Moving Technician Relationship Specialty Start Date End Date Fidel Abbott MD PCP - General 07/03/15 Air Moving Technician Relationship Specialty Start Date End Date Fidel Abbott MD PCP - General 07/03/15 Air Moving Technician Relationship Specialty Start Date End Date Fidel Abbott MD PCP - General 07/03/15 Air Moving Technician Relationship Specialty Start Date End Date Fidel Abbott MD PCP - General Family Medicine 12/10/22 Fidel Abbott MD [address] [place] [address] [facility]ly [facility] 03/29/23 Air Moving Technician Relationship Specialty Start Date End Date Fidel Abbott MD [facility] 12/10/22 Fidel Abbott MD [address] [place] [phone] Former[facility] 03/29/23 Air Moving Technician Relationship Specialty Start Date End Date Fidel Abbott MD [address] [place] [address] [facility] 03/29/23 Fidel Abbott MD [address] [place] [address] [facility] 05/12/23 Team Status: Inactive Member Role Status [...] July 08, 2023 End: July 08, 2023 Air Moving Technician Relationship Specialty Start Date End Date Fidel Abbott MD [facility] General 12/28/16 Air Moving Technician Relationship Specialty Start Date End Date Fidel Abbott MD [address] [place] [address] PCP - [employer] 02/26/23 Fidel Abbott MD [address] [place] [address] PCP - General Family Medicine 11/18/23 Air Moving Technician Relationship Specialty Start Date End Date Fidel Abbott MD [address] [place] [address] PCP - [employer] 02/26/23 Fidel Abbott MD [address] [place] [phone] PCP - General Family Medicine 11/18/23 Team [...] Provider Active S tart: February 08, 2024 Air Moving Technician Relationship Specialty Start Date End Date Fidel Abbott MD [address] [place] [phone] PCP - [employer] 02/26/23 Fidel Abbott MD [address] [place] [address] PCP - General Family Medicine 11/18/23 Air Moving Technician Relationship Specialty Start Date End Date Fidel Abbott MD [address] [place] [address] PCP - [employer] 02/26/23 Fidel Abbott MD [address] [place] [address] PCP - General Family Medicine 11/18/23 Air Moving Technician Relationship Specialty Start Date End Date Fidel Abbott MD [address] [place] [address] PCP - [employer] 02/26/23 Fidel Abbott MD [address] [place] [address] PCP - General Family Medicine 11/18/23 Air Moving Technician Relationship Specialty Start Date End Date Fidel Abbott MD PCP - General 12/28/16 Air Moving Technician Relationship Specialty Start Date End Date Fidel Abbott MD PCP - General 12/28/16 Air Moving Technician Relationship Specialty Start Date End Date Fidel Abbott MD [address] [place] [address] PCP - [employer] 02/26/23 Fidel Abbott MD [address] [place] [address] PCP - General Family Medicine 11/18/23 Fidel Abbott MD [address] [place] [address] PCP - [employer] 05/05/24 Air Moving Technician Relationship Specialty Start Date End Date Fidel Abbott MD [address] [place] [address] PCP - [employer] 02/26/23 Fidel Abbott MD [address] [place] [address] PCP - General Family Medicine 11/18/23 Fidel Abbott MD [address] [place] [address] PCP - [employer] 05/05/24 Air Moving Technician Relationship Specialty Start Date End Date Fidel Abbott MD [address] [place] [address] PCP - [employer] 02/26/23 Fidel Abbott MD [address] [place] [address] PCP - General Family Medicine 11/18/23 Fidel Abbott MD [address] [place] [address] PCP - [employer] 05/05/24 Air Moving Technician Relationship Specialty Start Date End Date Fidel Abbott MD [address] [place] [phone] PCP - General Family Medicine 11/18/23 Fidel Abbott MD [address] [place] [address] PCP - [employer] 05/05/24 Alvin Gonzalez [...] August 30, 2024 End: August 30, 2024 Air Moving Technician Relationship Specialty Start Date End Date Fidel Abbott MD [address] [place] [address] PCP - General Family Medicine 11/18/23 Team [...] October 02, 2024 End: October 02, 2024 Air Moving Technician Relationship Specialty Start Date End Date Fidel Abbott MD [address] [place] [address] PCP - General Family Medicine 11/18/23 Air Moving Technician Relationship Specialty Start Date End Date Fidel Abbott MD [address] [place] [address] PCP - General Family Medicine 11/18/23 Air Moving Technician Relationship Specialty Start Date End Date Fidel Abbott MD [address] [place] [address] PCP - General Family Medicine 11/18/23 Goals [...] kidney injury (HCC) Matias Garcia MD [address] [place] [address] [facility] [address] [place] [address] Referral ID Status Reason Start Date Expiration Date Visits Re quested Visits Authorized [id number] 1 1 Specialty Diagnoses / Procedures Referred By Farzaneh t Referred To Contact Radiology Diagnoses Cauda equina syndrome (HCC) Neurogenic bladder Urinary retention Urinary incontinence without sensory awareness Procedures US RENAL COMPLETE Ashlee Erwin, DIRECTOR OF MIDWIFERY/STAFF MIDWIFE - LUMBER MARKER [address] [place] [address] Referral ID Status Reason Start Date Expiration Date Visits Re quested Visits Authorized [id number] Open 09/18/2022 09/18/2023 1 1 Reason Comments [...] Valdez RN) 0812 (MAR Hold - Provider: [facility] [employer] - Reason: Unreviewed Transfer Orders)0900 (Automatically Held - Provider: Cammy Autohold)0959 ([facility] Unhold - Provider: Dragan Voss RN)1233 (Given - Provider: June Rocio) citalopram (CELEXA) tablet 40 mg 40 mg, Oral, DAILY, First dose on Wed06/23/22 at 0900, Until Discontinued 0907 (Given - Provider: Heri Valdez RN) 0723 (Given - Provider: Heri Valdez RN) 0812 (MAR Hold - Provider: [facility] [employer] - Reason: Unreviewed Transfer Orders)0900 (Automatically Held - Provider: Cammy Autohold)0959 ([facility] Unhold - Provider: Dragan Voss RN)1235 (Given - Provider: June Demetriageoff) clindamycin (CLEOCIN) 600 mg in dextrose 5 [...] Valdez RN)1633 (New Bag - Provider: Heri Valdez, RENETTA)1703 (Stopped - Provider: Geneva Samayoa, RENETTA) 0021 (New Bag - Provider: Geneva Samayoa, RENETTA)0051 (Stopped - Provider: Geneva Samayoa, RN)0825 (New [...] Provider: Linh Rocio)1320 (Stopped - Provider: June Rocio)2045 (Due - Provider: Linda Ibrahim [facility]) fenofibrate (TRIGLIDE) tablet 160 mg 160 mg, [...] Samayoa RN - Reason: IV Fluid Infusing) 07 (Not Given - Provider: Heri Valdez RN [...] and buttock wounds 1618 (Given - Provider: Hrei Valdez RN - Comment: bottle already in [...] (MAR Unhold - Provider: Dragan Voss RN) 0.9 [...] ([facility] Hold - Pro vider: [facility] [employer] - Reason: Unreviewed Transfer Orders)0959 ([facility] Unhold - Provider: Dragan Voss RN) acetaminophen (TYLENOL) suppository 650 mg(Linked Group 1) 650 mg, Rectal, EVERY 6 HOURS PRN, Starting on Wed06/22/22 at 2017, Until Discontinued, Pain Mild (1-3), Fever, For temp greater than 100.4 F (38 C), Administer if oral route cannot be used. 0812 ([facility] - Pro vider: [facility] [employer] - Reason: Unreviewed Transfer Orders)0959 ([facility] Unhold - Provider: Dragan Voss RN) acetaminophen (TYLENOL) tablet 650 mg(Linked Group 1) 650 mg, Oral, EVERY 6 HOURS PRN, Starting on Wed06/22/22 at 2017, Until Discontinued, Pain Mild (1-3), Fever, For temp greater than 100.4 F (38 C), Maximum dose of acetaminophen is 4000 mg from all sources in 24 hours. 0812 ([facility] - Pro vider: [facility] [employer] - Reason: Unreviewed Transfer Orders)0959 ([facility] Unhold - Provider: Dragan Voss RN) ondansetron (ZOFRAN) injection 4 mg(Linked Group 2) 4 mg, IntraVENous, EVERY 6 HOURS PRN, Starting on Wed06/22/22 at 2017, Until Discontinued, Nausea, Vomiting, Administer if oral route cannot be used. 0812 ([facility] Hold - Pro vider: [facility] [employer] - Reason: Unreviewed Transfer Orders)0959 ([facility] Unhold - Provider: Dragan Voss RN) ondansetron (ZOFRAN-ODT) disintegrating tablet 4 mg(Linked Group 2) 4 mg, Oral, EVERY 8 HOURS PRN, Starting on Wed06/22/22 at 2017, Until Discontinued, Nausea, Vomiting 0812 ([facility] Hold - Pro vider: [facility] [employer] - Reason: Unreviewed Transfer Orders)0959 ([facility] Unhold - Provider: Dragan Voss RN) polyethylene glycol (GLYCOLAX) packet 17 g 17 g, Oral, DAILY PRN, Starting on Wed06/22/22 at 2017, Until Discontinued, Constipation, First line therapy for constipation 0812 ([facility] Hold - Pro vider: [facility] [employer] - Reason: Unreviewed Transfer Orders)0959 ([facility] Unhold - Provider: Dragan Voss RN) sodium chloride flush 0.9 % injection 10 mL 10 mL, IntraVENous, PRN, Starting on Wed06/22/22 at 2017, Until Discontinued, Line Care, After every IV line use 0812 ([facility] Hold - Pro vider: [facility] [employer] - Reason: Unreviewed Transfer Orders)0959 ([facility] [...] BE BASED ON THE PRIMARY CLINICAL RECORDS. [employer] [facility]. provides no warranty or guarantee of the accuracy or completeness of information in this document.
== END 2024-12-13 10:43 | disposition home or self-care (01) ==
LOC: WC 10:42
PROVIDERS: PCP Family Medicine; Visit Provider Podiatrist Foot & Ankle Surgery
DX: L97.529 Non-pressure chronic ulcer of other part of left foot with unspecified severity (principal); L03.116 Cellulitis of left lower limb; L97.813 Non-pressure chronic ulcer of other part of right lower leg with necrosis of muscle; L89.893 Pressure ulcer of other site, stage 3; L89.613 Pressure ulcer of right heel, stage 3; L89.520 Pressure ulcer of left ankle, unstageable
CPT/HCPCS: 10061; 87070; 87075; 87077; 87186; 87205

== ENCOUNTER 2024-12-13 13:12 | Outpatient (REF) | payer BC, MEDICARE, SELFPAY ==
--- OUTSIDE RECORDS SUMMARY | 2024-12-13 13:23 | XMS_ITS | CCD ---
Author Organization [facility] Care Team Providers Care 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 Name Role Phone WESTONMICHAELA Unavailable Unavailable NADERER, FIDEL LIEBERMAN Unavailable Unavailabl e AOUAD, THIAGO Sy Unavailable Unavailable BLOOD, GANGA Gutiérrez Unavailable Unavailable BRAMBILA, JAI Chowdhury Unavailable Unavailable SCHNICATHYSANDAL PARTS ASSEMBLER, WILLIAM Unavailable Unavaila ble SHASHA, KHADAR Murphy [...] DR CATHY Edwards Admitting Unavailable BRAR, DR ACTHY Edwards Attending Unavailable NADERER, DR FIDEL Tellez Primary Care Unavailable CLARKSDALE, DR KHADAR Edwards Consulting Unavailable BRAR, DR CATHY Edwards Consulting Unavailable MD Fidel Abbott Primary Care Provider MD Cathy Brar Attending Provider [phone] Fidel Abbott MD Primary Care Provider MD Fidel Abbott Primary Care Provider MD Cathy Brar Attending Provider [phone] Fidel Abbott MD Primary Care Provider SHELLY MONDRAGON Referring Unavail able NADFIDEL SIN Primary Care UnavailASHLEE Juan Referring Unavailable NADERERFIDEL Primary Care UnavailASHLEE Juan Referring Unavailable NADERERFIDEL Primary Care Unavailabl e ANGELES NAGY Referring Unavailable NADERER, FIDEL LIEBERMAN Primary Care Unavailabl e ZACISTEVEN, ANGELES Attending Unavailable LILO, ANGELES Admitting Unavailable [...] Brar Attending Provider CRISTIANA Bah Attending Provider [phone] CRISTIANA Bahena Attending Provider Khadar Guerrero Referring Unavailable MILENA, FIDEL Primary Care Unavailable FIDEL ABBOTT Referring Unavailable Fidel Abbott MD Primary Care Provider [phone] Fidel Abbott MD Unavailable Milena NAZARIO, Fidel Primary Care Provider Milena NAZARIO, Fidel Primary Care Provider [phone] Nina River MD Attending Provider [phone] Cathy Brar MD Attending Provider Cathy Brar MD Attending Provider Fidel Abbott MD Primary Care Provider Fidel Abbott MD Unavailable FIDEL ABBOTT Attending Unavailable MILENA, FIDEL Attending Unavailable FIDEL ABBOTT Attending Unavailable Alvin Gonzalez MA Unavailable Unavailable Fidel Abbott MD Primary Care Provider Cathy Brar MD Attending Provider Latha CAICEDO-C, Tami Christie Attending Provider Aleta, [...] Allergy 6 Shut kidneys down [facility] Repository (20 sources) Vancomycin Drug Allergy 6 Other, Unknown, Other (See Comments) [facility] (20 sources) omadacycline; Translations: [omadacycl] Drug allergy 3 Renal pain (finding) [facility] (8 sources) ferrous sulfate; Translations: [ferrous sulfate] Drug Allergy 3 Itching [facility] (1 source) Vancomycin Drug Allergy 5 [facility] Repository Medications Current Medications Medication Drug [...] procedure, # 2 tab(s), Refills(s) 0, Pharmacy: [facility] 1429, 180, cm, 11/09/22 13:16:00 [...] Called to pharmacy 09/09/2021 polyethylene glycol 3350 49557 mg powder for oral solution (1 source) Osmotic Laxative Start: 06-22-2022 17 g, Oral, D AILY PRN, Starting on Wed06/22/22 at 2018, Until Discontinued, Constipation First line therapy for constipation polyethylene glycol 3350 612289 mg / potassium chloride 2970 mg / sodium bicarbonate 6740 mg / sodium chloride 5860 mg / sodium sulfate 80224 mg powder for oral solution (1 source) [...] GM/60ML suspension 45 g sodium zirconium cyclosilicate 28114 mg powder for oral suspension (1 source) [...] 10:21am Start: 12-07-2016 End: 12-08-2016 [facility] 2016 12:00am December 08, 2016 2:50pm Start: 12-07-2016 End: 12-08-2016 Bactrim Discontinued [facility] [place] 11:00pm December 08, 2016 1:50pm [...] 1 01-07-2017 Episodic Other aftercare (1 source) longterm (current) use of insulin; Translations: [longterm (current) use of insulin] Onset: 5 Episodic [...] (BMI) of 36.0 to 36.9 in adult ([facility])] Onset: 5 07-31-2024 Chronic Other screening for [...] Acute and unspecified renal failure (16 sources) Fiqha-gy-gbpopyz renal failure; Translations: [Acute kidney failure, unspecified] [...] current use of drug therapy; Translations: [Other intermediate project manager (current) drug therapy] Onset: 11-18-2023 11-18-2023 Episodic Other aftercare (5 sources) Patient encounter status; Translations: [Other intermediate project manager (current) drug therapy] Onset: 11-18-2023 11-18-2023 Episodic [...] Facility Patient Letter FTon 2024 [place] [facility] [place] [facility] December 07, 2024 GANGA STINSON [address] [place] [address] : 1960 Dear Mr. Ganga Stinson, [facility], Dr. Jovanny Villa office has been trying to reach you concerning scheduling your annual bladder scope (cystoscopy) and urethral dilation at the [facility]. We have left several messages without a response. Please call the office as soon as possible so we can get you scheduled and continue to provide you with quality care. Sincerely, Jovanny Villa M.D., F.A.C.S. [facility] [address] [place], [place] [address] , option #3 Normal [facility] Aerobic Cultureon 10-02-2024 Aerobic Culture Comment Left [...] RESISTANT TO ALL B-LACTAM DRUGS. PERFORMED BY: [facility] [address] [place] [address] PATHOLOGIST MAGAZINE KEEPER LEXA ELLIOTT M.D. Normal [facility] Comment on above: Performed By: #### A ERC #### [address] Basic Metabolic Panelon Creatinine Clr Calc Pharmacy 54.42 Normal [facility] Comment on above: Result Comment: PERF ORMED BY: [place] [address] PATHOLOGIST MAGAZINE KEEPER LEXA ELLIOTT M.D. Performed By: #### C BC, BMP #### [address] GFR/1.73 sq M.predicted MDRD (S/P/Bld) [Vol rate/Area] 45.056 mL/min/{1.73_m2} Normal [facility] Comment on above: Performed By: #### C BC, BMP #### [address] Basophils [#/volume] in Bloo d by Automated countOrdered By: Rafi Cai on 10-02-2024 Basophils (Bld) [#/Vol] 0.1 10*3/uL Normal 0.0-0.2 [facility] Comment on above: Result Comment: PERF ORMED BY: [place] [address] PATHOLOGIST MAGAZINE KEEPER LEXA ELLIOTT M.D. Performed By: #### C BC, BMP #### [place] [address] [place] Basophils/100 leukocytes in Blood by Automated countOrdered By: Rafi Cai on 10-02-2024 Basophils/100 WBC (Bld) 0.6 % Normal . [facility] Comment on above: Performed By: #### C BC, BMP #### [place] [address] [place] Calcium [Mass/volume] in Ser um or PlasmaOrdered By: Rafi Cai on 10-02-2024 Calcium [Mass/Vol] 8.3 mg/dL Low 8.6-10.3 [facility] Comment on above: Performed By: #### C BC, BMP #### [address] Capillary blood glucose linda urement by glucometer (mass/volume)Ordered By: Cathy Brar on 10-02-2024 Glucose [Mass/Vol] 74 mg/dL Normal [facility] Comment on above: Random Glucose Refer ence Range is dependent on time and content of last meal. Glucose of more than 200 mg/dL in a nonstressed, ambulatory subject supports the diagnosis of Diabetes Mellitus. Result Comment: [place] om Glucose Reference Range is dependent on time and content of last meal. Glucose of more than 200 mg/dL in a nonstressed, ambulatory subject supports the diagnosis of Diabetes Mellitus. PERFORMED BY: [place] [address] PATHOLOGIST MAGAZINE KEEPER LEXA ELLIOTT M.D. Performed By: #### G BHARATI #### Point of Care testing , Carbon dioxide, total [Moles /volume] in Serum or PlasmaOrdered By: Rafi Cai on 10-02-2024 CO2 [Moles/Vol] 24.7 mmol/L Normal 21.0-31.0 [facility] Comment on above: Performed By: #### C CHINTAN, BMP #### [address] Chloride [Moles/volume] in S tremayne or PlasmaOrdered By: Rafi Cai on 10-02-2024 Chloride [Moles/Vol] 109 mmol/L High 98-[address] [facility] Comment on above: Performed By: #### C CHINTAN, BMP #### [address] Complete Blood Count Auto Di ffon 10-02-2024 Mean Corpuscular HGB Conc 32.2 g/dL Low 32.5-35.6 [facility] Comment on above: Performed By: #### C CHINTAN, BMP #### [address] NRBC% 0.0 /100{WBC} Normal 0-0.5 [facility] Comment on above: Performed By: #### C CHINTAN, BMP #### [facility] [address] White Blood Count 13.7 [CFU]/mL High 4.1-10.5 [facility] Comment on above: Performed By: #### C BC, BMP #### [facility] [address] Creatinine [Mass/volume] in Serum or PlasmaOrdered By: Rafi Cai on 10-02-2024 Creatinine [Mass/Vol] 1.69 mg/dL High 0.70-1.30 [facility] Comment on above: Performed By: #### C BC, BMP #### [address] ECG 12 lead ECGon 10-02-2024 ECG 12 lead ECG [facility] [place] [address] [place] [address] Electrocardiograph Report Signed Patient: Ganga Stinson MR#: [id number] : 1960 Acct:[id number] Age/Sex: 64 / M ADM Date: 10/02/24 Loc: [place] Room: Type: [facility] Attending Dr: Cathy Brar MD [...] change was found Confirmed by Jese Whitley ([id number]) on 10/02/2024 4:24:29 PM Referred By: Electronically Signed By: Jese Whitley Transcribed By: MUS Signed By Jese Whitley MD 10/02/24 1624 Normal [facility] Eosinophils [#/volume] in Bl ood by Automated countOrdered By: Rafi Cai on 10-02-2024 Eosinophils (Bld) [#/Vol] 1.2 10*3/uL High 0.0-0.45 [facility] Comment on above: Performed By: #### C CHINTAN, BMP #### [facility] [address] Eosinophils/100 leukocytes i n Blood by Automated countOrdered By: Rafi Cai on 10-02-2024 Eosinophils/100 WBC (Bld) 8.7 % Normal . [facility] Comment on above: Performed By: #### C CHINTAN, BMP #### [address] Erythrocyte distribution wid th [Ratio] by Automated countOrdered By: Rafi Cai on 10-02-2024 Erythrocyte distribution width (RBC) [Ratio] 15.3 % High 12.0-14.8 [facility] Comment on above: Performed By: #### C CHINTAN, BMP #### [address] Erythrocytes [#/volume] in B lood by Automated countOrdered By: Rafi Cai on 10-02-2024 RBC (Bld) [#/Vol] 2.89 10*6/uL Low 3.90-5.60 [facility] Comment on above: Performed By: #### C CHINTAN, BMP #### [address] GLUCOSE POCT GLUCOMETERSon 0 10-02-2024 Glucose [Mass/Vol] 74 mg/dL [facility] Comment on above: Random Glucose Refer ence Range is dependent on time and content of last meal. Glucose of more than 200 mg/dL in a nonstressed, ambulatory subject supports the diagnosis of Diabetes Mellitus. [facility] COMMEMT1 Glu2: Cleaned Meter [facility] Glucose [Mass/Vol] 77 mg/dL [facility] Comment on above: Random Glucose Refer ence Range is dependent on time and content of last meal. Glucose of more than 200 mg/dL in a nonstressed, ambulatory subject supports the diagnosis of Diabetes Mellitus. [facility] Glucose Poct Glucometerson 0 10-02-2024 Commemt1 Glu2: Cleaned Meter Normal [facility] Comment on above: Result Comment: PERF ORMED BY: [place] [address] PATHOLOGIST MAGAZINE KEEPER LEXA ELLIOTT M.D. Performed By: #### G BHARATI #### Point of Care testing , Glucose [Mass/Vol] 77 mg/dL Normal [facility] Comment on above: Result Comment: [place] om Glucose Reference Range is dependent on time and content of last meal. Glucose of more than 200 mg/dL in a nonstressed, ambulatory subject supports the diagnosis of Diabetes Mellitus. Performed By: #### G BHARATI #### Point of Care testing , Glucose [Mass/volume] in Ser um or PlasmaOrdered By: Rafi Cai on 10-02-2024 Glucose [Mass/Vol] 72 mg/dL Normal 70-100 [facility] Comment on above: ADA recommended refe rence rangeRandom Glucose Reference Range is dependent on time and content of last meal. Glucose of more than 200 mg/dL in a nonstressed, ambulatory subject supports the diagnosis of Diabetes Mellitus. Result Comment: [facility] Glucose Reference Range is dependent on time and content of last meal. Glucose of more than 200 mg/dL in a nonstressed, ambulatory subject supports the diagnosis of Diabetes Mellitus. ADA recommended reference range Performed By: #### C BC, BMP #### [address] Hematocrit [Volume Fraction] of Blood by Automated countOrdered By: Rafi Cai on 10-02-2024 Hematocrit (Bld) [Volume fraction] 23.0 % Low 38.8-50.0 [facility] Comment on above: Performed By: #### C BC, BMP #### [address] Hemoglobin [Mass/volume] in BloodOrdered By: Rafi Cai on 10-02-2024 Hemoglobin (Bld) [Mass/Vol] 7.4 g/dL Low 13.0-17.0 [facility] Comment on above: Performed By: #### C BC, BMP #### [place] [address] [place] Martín 10-02-2024 L ------ Specimen: [id number] Received: 10/02/24 Status: ROSIO Rajput Num: [id number] Spec Type: Surgical Subm Dr: Cathy Brar MD Tissues: A Debridement-Skin/Other Than Skin (PRODUCTS OF DEBRIDEMENT) Procedures: Gianna ASHBY/Margo Smith Age/ Patient Sex Location Account Attending Physician Ganga Stinson/Sam [place] [id number] Cathy Brar MD SPEC NUM: [id number] RECD: 10/02/24 STATUS: ORSIO RAJPUT NUM: [id number] NAYLA: 10/02/[address]: Cathy Brar MD ENTERED: 10/02/24 [facility] DR: SPEC TYPE: Surgical DEPT: S ENTERED BY: [id number] RECV BY: [id number] ORDERED: HE, Gross/Micro L3 ORDERED: HE, Gross/Micro [...] to yellow, dull and uniform cut surfaces. Tower Crane Operator sections are submitted in a single cassette. (1, , T29-2060 A) Microscopic Description Microscopic examination is performed. CPT Codes 94041 Specimen: [id number] Received: 10/02/24 Status: ROSIO Matti Num: [id number] Spec Type: Surgical Subm Dr: Cathy Brar MD Tissues: A Debridement-Skin/Other Than Skin (PRODUCTS OF DEBRIDEMENT) Procedures: ISMA, Gross/Micro L3 Patient: Ganga Stinson [id number] (Continued) Signed (signature on file) Zak Brasher MD 10/04/24 0918 Normal [facility] Leukocytes [#/volume] correc shreya for nucleated erythrocytes in Blood by Automated counOrdered By: Rafi Cai on 10-02-2024 WBC corrected for nucl RBC Auto (Bld) [#/Vol] 13.7 10*3/uL High 4.1-10.5 [facility] Leukocytes [#/volume] in Blo od by Automated countOrdered By: Rafi Cai on 10-02-2024 WBC (Bld) [#/Vol] 13.7 10*3/uL High 4.1-10.5 [facility] Comment on above: Performed By: #### C CHINTAN, BMP #### [facility] [address] [place] [address] [place] Lymphocytes [#/volume] in Bl ood by Automated countOrdered By: Rafi Cai on 10-02-2024 Lymphocytes (Bld) [#/Vol] 1.5 10*3/uL Normal 1.00-4.8 [facility] Comment on above: Performed By: #### C CHINTAN, BMP #### [facility] [address] [place] [address] [place] Lymphocytes/100 leukocytes i n Blood by Automated countOrdered By: Rafi Cai on 10-02-2024 Lymphocytes/100 WBC (Bld) 11.2 % Normal . [facility] Comment on above: Performed By: #### C BC, BMP #### [facility] [address] MCH [Entitic mass] by Automa shreya countOrdered By: Rafi Cai on 10-02-2024 MCH (RBC) [Entitic mass] 25.6 pg Low 27.5-35.2 [facility] Comment on above: Performed By: #### C BC, BMP #### [address] MCHC Auto (RBC) [Mass/Vol]Or dered By: Rafi Cai on 10-02-2024 MCHC (RBC) [Mass/Vol] 32.2 g/dL Low 32.5-35.6 [facility] MCV [Entitic volume] by Auto mated countOrdered By: Rafi Cai on 10-02-2024 MCV (RBC) [Entitic vol] 79.5 fL Low 83.5-101 [facility] Comment on above: Performed By: #### C BC, BMP #### [place] [address] [place] Monocytes [#/volume] in Bloo d by Automated countOrdered By: Rafi Cai on 10-02-2024 Monocytes (Bld) [#/Vol] 1.1 10*3/uL High 0.0-0.8 [facility] Comment on above: Performed By: #### C BC, BMP #### [place] [address] [place] Monocytes/100 leukocytes in Blood by Automated countOrdered By: Rafi Cai on 10-02-2024 Monocytes/100 WBC (Bld) 8.3 % Normal . [facility] Comment on above: Performed By: #### C BC, BMP #### [place] [address] [place] Neutrophils [#/volume] in Bl ood by Automated countOrdered By: Rafi Cai on 10-02-2024 Neutrophils (Bld) [#/Vol] 9.8 10*3/uL High 1.8-7.7 [facility] Comment on above: Performed By: #### C BC, BMP #### [facility] [address] [place] [address] [place] Neutrophils/100 leukocytes i n Blood by Automated countOrdered By: Rafi Cai on 10-02-2024 Neutrophils/100 WBC (Bld) 71.2 % Normal . [facility] Comment on above: Performed By: #### C BC, BMP #### [address] No Panel InformationOrdered By: Rafi Cai on 10-02-2024 Estimated GFR (CKD-EPI) 45.056 mL/Min [facility] Creatinine Clearance (Chem 54.42 [facility] No Panel InformationOrdered By: Cathy Brar on 10-02-2024 Bedside Glucose Comment Glu2: cleaned meter [facility] Nucleated erythrocytes [Pres ence] in Blood by Automated countOrdered By: Rafi Cai on 10-02-2024 Nucleated RBC Auto Ql (Bld) 0.0 /100{WBC} 0-0.5 [facility] Platelet mean volume [Entiti c volume] in Blood by Automated countOrdered By: Rafi Cai on 10-02-2024 Platelet mean volume (Bld) [Entitic vol] 6.2 fL Low 6.6-10.1 [facility] Comment on above: Performed By: #### C CHINTAN, BMP #### [address] Platelets [#/volume] in Bloo d by Automated countOrdered By: Rafi Cai on 10-02-2024 Platelets (Bld) [#/Vol] 339 10*3/uL Normal 150-450 [facility] Comment on above: Performed By: #### C CHINTAN, BMP #### [address] Potassium [Moles/volume] in Serum or PlasmaOrdered By: Rafi Cai on 10-02-2024 Potassium [Moles/Vol] 3.7 mmol/L Normal 3.5-5.1 [facility] Comment on above: Performed By: #### C BC, BMP #### [place] [address] [place] Serum or plasma anion gap de terminationOrdered By: Rafi Cai on 10-02-2024 Anion gap [Moles/Vol] 8.0 mmol/L Normal 6.0-15.0 [facility] Comment on above: Performed By: #### C BC, BMP #### [facility] [address] Sodium [Moles/volume] in Ser um or PlasmaOrdered By: Rafi Cai on 10-02-2024 Sodium [Moles/Vol] 138 mmol/L Normal 136-145 [facility] Comment on above: Performed By: #### C BC, BMP #### [facility] [address] Urea nitrogen [Mass/volume] in Serum or PlasmaOrdered By: Rafi Cai on 10-02-2024 Urea nitrogen [Mass/Vol] 25 mg/dL Normal 7-25 [facility] Comment on above: Performed By: #### C BC, BMP #### [facility] [address] ALL CBC WITH AUTO DIFFon BASOPHILS ABSOLUTE AUTO 0 [facility] Basophils/100 WBC (Bld) 0.3 % 0.2 - 2.0 % [facility] Eosinophils/100 WBC (Bld) 9.5 % High 0.9 - 7.0 % [facility] Erythrocyte distribution width (RBC) [Ratio] 14.3 % 11.0 - 15.0 % [facility] Hematocrit (Bld) [Volume fraction] 23.2 % Critically low 42.0 - 54.0 % [facility] Comment on above: RESULTS CALLED TO NICHOL SWAN RN Hemoglobin (Bld) [Mass/Vol] 7.4 g/dL Low 14.0 - 18.0 g/dL [facility] IMMATURE GRANULOCYTES ABS AUTO 0.07 High [facility] Immature granulocytes/100 WBC (Bld) 0.5 % 0.0 - 0.5 % [facility] Interpretation and review of laboratory results Abnormal [facility] LYMPHOCYTES ABSOLUTE AUTO 1.8 [facility] Lymphocytes/100 WBC (Bld) 13.3 % Low 20.5 - 60.0 % [facility] MCH (RBC) [Entitic mass] 26.6 pg 25.9 - 34.0 pg [facility] MCHC (RBC) [Mass/Vol] 31.9 g/dL 29.9 - 35.2 g/dL [facility] MCV (RBC) [Entitic vol] 83.5 fL 80.0 - 94.0 fL [facility] MONOCYTES ABSOLUTE AUTO 1.1 High [facility] Monocytes/100 WBC (Bld) 7.8 % 1.7 - 12.0 % [facility] NEUTROPHILS ABSOLUTE AUTO 9.3 High [facility] Neutrophils/100 WBC (Bld) 68.6 % 43.0 - 75.0 % [facility] Platelet mean volume (Bld) [Entitic vol] 8.8 fL Low 9.5 - 13.5 fL [facility] TBH EO # 1.3 High [facility] TB PLT 306 [facility] RBC 2.78 Low [facility] WBC 13.5 High [facility] ALL CBC WITH AUTO DIFFon BASOPHILS ABSOLUTE AUTO 0.1 [facility] Basophils/100 WBC (Bld) 0.4 % 0.2 - 2.0 % [facility] Eosinophils/100 WBC (Bld) 9 % High 0.9 - 7.0 % [facility] Erythrocyte distribution width (RBC) [Ratio] 14.5 % 11.0 - 15.0 % [facility] Hematocrit (Bld) [Volume fraction] 23.8 % Critically low 42.0 - 54.0 % [facility] Comment on above: RESULTS CALLED TO TABBY RUBALCAVA RN at 1219 Hemoglobin (Bld) [Mass/Vol] 7.4 g/dL Low 14.0 - 18.0 g/dL [facility] IMMATURE GRANULOCYTES ABS AUTO 0.08 High [facility] Immature granulocytes/100 WBC (Bld) 0.6 % High 0.0 - 0.5 % [facility] Interpretation and review of laboratory results Abnormal [facility] LYMPHOCYTES ABSOLUTE AUTO 1.6 [facility] Lymphocytes/100 WBC (Bld) 12.9 % Low 20.5 - 60.0 % [facility] MCH (RBC) [Entitic mass] 26.3 pg 25.9 - 34.0 pg [facility] MCHC (RBC) [Mass/Vol] 31.1 g/dL 29.9 - [...] US ankle/arm indiceson 09-05 US ankle/arm indices [facility] [address] [place] [address] Ultrasound Report Signed Patient: Ganga Stinson MR#: [id number] : 1960 Acct:[id number] Age/Sex: 64 / M ADM Date: 08/30/24 Loc: [facility] Room: Type: [facility] Attending Dr: Jesusita Navarro MD Ordering Provider: [...] Navarro MD,FACS,FSVS 09/05/2024 12:35 PM Dictation Location: [facility]-04 Tech: Livia Hawk Transcribed By: MARYANN 09/05/24 1235 Dictated By: Jesusita Navarro MD 09/05/24 1234 Signed By: 09/05/24 1235 Normal [facility] ALL CBC WITH AUTO DIFFon BASOPHILS ABSOLUTE AUTO 0.1 [facility] Basophils/100 WBC (Bld) 0.4 % 0.2 - 2.0 % [facility] Eosinophils/100 WBC (Bld) 5 % 0.9 - 7.0 % [facility] Erythrocyte distribution width (RBC) [Ratio] 14.3 % 11.0 - 15.0 % [facility] Hematocrit (Bld) [Volume fraction] 23.4 % Critically low 42.0 - 54.0 % [facility] Comment on above: RESULTS CALLED TO TABBY RUBALCAVA RN Hemoglobin (Bld) [Mass/Vol] 7.3 g/dL Low 14.0 - 18.0 g/dL [facility] IMMATURE GRANULOCYTES ABS AUTO 0.06 High [facility] Immature granulocytes/100 WBC (Bld) 0.4 % 0.0 - 0.5 % [facility] Interpretation and review of laboratory results Abnormal [facility] LYMPHOCYTES ABSOLUTE AUTO 1.6 [facility] Lymphocytes/100 WBC (Bld) 11.5 % Low 20.5 - 60.0 % [facility] MCH (RBC) [Entitic mass] 26 pg 25.9 - 34.0 pg [facility] MCHC (RBC) [Mass/Vol] 31.2 g/dL 29.9 - 35.2 g/dL [facility] MCV (RBC) [Entitic vol] 83.3 fL 80.0 - 94.0 fL [facility] MONOCYTES ABSOLUTE AUTO 1.1 High [facility] Monocytes/100 WBC (Bld) 8.2 % 1.7 - 12.0 % [facility] NEUTROPHILS ABSOLUTE AUTO 10.3 High [facility] Neutrophils/100 WBC (Bld) 74.5 % 43.0 - 75.0 % [facility] Platelet mean volume (Bld) [Entitic vol] 8.9 fL Low 9.5 - 13.5 fL [facility] [facility] EO # 0.7 [facility] PLT 319 [facility] RBC 2.81 Low [facility] WBC 13.8 High [facility] ALL CBC WITH AUTO DIFFon BASOPHILS ABSOLUTE AUTO 0.1 [facility] Basophils/100 WBC (Bld) 0.4 % 0.2 - 2.0 % [facility] Eosinophils/100 WBC (Bld) 5.1 % 0.9 - 7.0 % [facility] Erythrocyte distribution width (RBC) [Ratio] 15.3 % High 11.0 - 15.0 % [facility] Hematocrit (Bld) [Volume fraction] 22.9 % Critically low 42.0 - 54.0 % [facility] Comment on above: RESULTS CALLED TO CARLOS FREED RN Hemoglobin (Bld) [Mass/Vol] 6.9 g/dL Critically low 14.0 - 18.0 g/dL [facility] Comment on above: RESULTS CALLED TO CARLOS FREED RN IMMATURE GRANULOCYTES ABS AUTO 0.05 High [facility] Immature granulocytes/100 WBC (Bld) 0.4 % 0.0 - 0.5 % [facility] Interpretation and review of laboratory results Abnormal [facility] LYMPHOCYTES ABSOLUTE AUTO 1.3 [facility] Lymphocytes/100 WBC (Bld) 10.2 % Low 20.5 - 60.0 % [facility] MCH (RBC) [Entitic mass] 24.7 pg Low 25.9 - 34.0 pg [facility] MCHC (RBC) [Mass/Vol] 30.1 g/dL 29.9 - 35.2 g/dL [facility] MCV (RBC) [Entitic vol] 82.1 fL 80.0 - 94.0 fL [facility] MONOCYTES ABSOLUTE AUTO 1.1 High [facility] Monocytes/100 WBC (Bld) 8.1 % 1.7 - 12.0 % [facility] NEUTROPHILS ABSOLUTE AUTO 9.9 High [facility] Neutrophils/100 WBC (Bld) 75.8 % High 43.0 - 75.0 % [facility] Platelet mean volume (Bld) [Entitic vol] 8.9 fL Low 9.5 - 13.5 fL [facility] TBH EO # 0.7 [facility] TBH PLT 292 [facility] RBC 2.79 Low [facility] TB WBC 13.1 High [facility] ALL CBC WITH AUTO DIFFon BASOPHILS ABSOLUTE AUTO 0.1 [facility] Basophils/100 WBC (Bld) 0.6 % 0.2 - 2.0 % [facility] Eosinophils/100 WBC (Bld) 8.8 % High 0.9 - 7.0 % [facility] Erythrocyte distribution width (RBC) [Ratio] 14 % 11.0 - 15.0 % [facility] Hematocrit (Bld) [Volume fraction] 26.9 % Low 42.0 - 54.0 % [facility] Hemoglobin (Bld) [Mass/Vol] 8.1 g/dL Low 14.0 - 18.0 g/dL [facility] IMMATURE GRANULOCYTES ABS AUTO 0.12 High [facility] Immature granulocytes/100 WBC (Bld) 0.9 % High 0.0 - 0.5 % [facility] Interpretation and review of laboratory results Abnormal [facility] LYMPHOCYTES ABSOLUTE AUTO 1.6 [facility] Lymphocytes/100 WBC (Bld) 12.2 % Low 20.5 - 60.0 % [facility] MCH (RBC) [Entitic mass] 24.9 pg Low 25.9 - 34.0 pg [facility] MCHC (RBC) [Mass/Vol] 30.1 g/dL 29.9 - 35.2 g/dL [facility] MCV (RBC) [Entitic vol] 82.8 fL 80.0 - 94.0 fL [facility] MONOCYTES ABSOLUTE AUTO 1 High [facility] Monocytes/100 WBC (Bld) 7.3 % 1.7 - 12.0 % [facility] NEUTROPHILS ABSOLUTE AUTO 9.3 High [facility] Neutrophils/100 WBC (Bld) 70.2 % 43.0 - 75.0 % [facility] Platelet mean volume (Bld) [Entitic vol] 8.9 fL Low 9.5 - 13.5 fL [facility] TBH EO # 1.2 High [facility] TBH PLT 317 [facility] RBC 3.25 Low [facility] TB WBC 13.2 High [facility] ALL SED RATEon 02-14-2024 Interpretation and review of laboratory results Abnormal [facility] TBH SED RATE 67 High NINF [facility] Basic Metabolic Panelon 01-27 Anion gap [Moles/Vol] 9.9 mmol/L Normal 6.0-15.0 [facility] Comment on above: Performed By: #### C BC, BMP #### [facility] [address] [place] [address] Calcium [Mass/Vol] 7.6 mg/dL Low 8.6-10.3 [facility] Comment on above: Performed By: #### C BC, BMP #### [address] Chloride [Moles/Vol] 106 mmol/L Normal 98-107 [facility] Comment on above: Performed By: #### C BC, BMP #### [address] CO2 [Moles/Vol] 26.1 mmol/L Normal 21.0-31.0 [facility] Comment on above: Performed By: #### C BC, BMP #### [address] Creatinine [Mass/Vol] 1.59 mg/dL High 0.70-1.30 [facility] Comment on above: Performed By: #### C BC, BMP #### [address] GFR/1.73 sq M.predicted MDRD (S/P/Bld) [Vol rate/Area] 48.779 mL/min/{1.73_m2} Normal [facility] Comment on above: Performed By: #### C BC, BMP #### [address] Glucose [Mass/Vol] 128 mg/dL High 70-100 [facility] Comment on above: Result Comment: [place] Glucose Reference Range is dependent on time and content of last meal. Glucose of more than 200 mg/dL in a nonstressed, ambulatory subject supports the diagnosis of Diabetes Mellitus. ADA recommended reference range Performed By: #### C BC, BMP #### [address] Potassium [Moles/Vol] 4.0 mmol/L Normal 3.5-5.1 [facility] Comment on above: Performed By: #### C BC, BMP #### [place] [address] [place] Sodium [Moles/Vol] 138 mmol/L Normal 136-145 [facility] Comment on above: Performed By: #### C CHINTAN, BMP #### [facility] [address] Urea nitrogen [Mass/Vol] 24 mg/dL Normal 7-25 [facility] Comment on above: Performed By: #### C CHINTAN, BMP #### [facility] [address] Basophils Auto (Bld) [#/Vol] Ordered By: Nina Aleta on 02-08-2024 Basophils (Bld) [#/Vol] Automated basophil count 0.0-0.2 [facility] Basophils/100 WBC Auto (Bld) Ordered By: Nina Aleta on 02-08-2024 Basophils/100 WBC (Bld) Automated basophil % . [facility] C reactive protein [Mass/vol ume] in Serum or PlasmaOrdered By: Nina Aleta on 02-08-2024 CRP [Mass/Vol] C reactive protein [Mass/volume] in Serum or Plasma High 0.0-0.5 [facility] C-Reactive Proteinon 024 C-Reactive Protein 10.7 mg/dL High 0.0-0.5 [facility] Comment on above: Performed By: #### C CHINTAN, BMP #### [address] Calcium [Mass/volume] in Ser um or PlasmaOrdered By: Nina Aleta on 02-08-2024 Calcium [Mass/Vol] Calcium [Mass/volume ] in Serum or Plasma Low 8.6-10.3 [facility] Carbon dioxide, total [Moles /volume] in Serum or PlasmaOrdered By: Nina Aleta on 02-08-2024 CO2 [Moles/Vol] Carbon dioxide, tota l [Moles/volume] in Serum or Plasma 21.0-31.0 [facility] Chloride [Moles/volume] in S tremayne or PlasmaOrdered By: Nina Aleta on 02-08-2024 Chloride [Moles/Vol] Chloride [Moles/vol ume] in Serum or Plasma 98-107 [facility] Complete Blood Count Auto Di ffon 02-08-2024 Basophils (Bld) [#/Vol] 0.0 10*3/uL Normal 0.0-0.2 [facility] Comment on above: Performed By: #### C BC, BMP, FE PRO, B12, ESR, CRP #### [address] Basophils/100 WBC (Bld) 0.4 % Normal . [facility] Comment on above: Performed By: #### C BC, BMP, FE PRO, B12, ESR, CRP #### [address] Eosinophils (Bld) [#/Vol] 0.2 10*3/uL Normal 0.0-0.45 [facility] Comment on above: Performed By: #### C BC, BMP, FE PRO, B12, ESR, CRP #### [address] Eosinophils/100 WBC (Bld) 2.4 % Normal . [facility] Comment on above: Performed By: #### C BC, BMP, FE PRO, B12, ESR, CRP #### [address] Erythrocyte distribution width (RBC) [Ratio] 15.2 % High 12.0-14.8 [facility] Comment on above: Performed By: #### C BC, BMP, FE PRO, B12, ESR, CRP #### [address] Hematocrit (Bld) [Volume fraction] 23.1 % Low 38.8-50.0 [facility] Comment on above: Performed By: #### C BC, BMP, FE PRO, B12, ESR, CRP #### [address] Hemoglobin (Bld) [Mass/Vol] 7.8 g/dL Low 13.0-17.0 [facility] Comment on above: Performed By: #### C BC, BMP, FE PRO, B12, ESR, CRP #### [address] Lymphocytes (Bld) [#/Vol] 0.7 10*3/uL Low 1.00-4.8 [facility] Comment on above: Performed By: #### C BC, BMP, FE PRO, B12, ESR, CRP #### [address] Lymphocytes/100 WBC (Bld) 7.0 % Normal . [facility] Comment on above: Performed By: #### C BC, BMP, FE PRO, B12, ESR, CRP #### [address] MCH (RBC) [Entitic mass] 26.8 pg Low 27.5-35.2 [facility] Comment on above: Performed By: #### C BC, BMP, FE PRO, B12, ESR, CRP #### [address] MCV (RBC) [Entitic vol] 79.5 fL Low 83.5-101 [facility] Comment on above: Performed By: #### C BC, BMP, FE PRO, B12, ESR, CRP #### [address] Mean Corpuscular HGB Conc 33.7 g/dL Normal 32.5-35.6 [facility] Comment on above: Performed By: #### C BC, BMP, FE PRO, B12, ESR, CRP #### [address] Monocytes (Bld) [#/Vol] 0.5 10*3/uL Normal 0.0-0.8 [facility] Comment on above: Performed By: #### C BC, BMP, FE PRO, B12, ESR, CRP #### [address] Monocytes/100 WBC (Bld) 4.8 % Normal . [facility] Comment on above: Performed By: #### C BC, BMP, FE PRO, B12, ESR, CRP #### [address] Neutrophils (Bld) [#/Vol] 9.0 10*3/uL High 1.8-7.7 [facility] Comment on above: Performed By: #### C BC, BMP, FE PRO, B12, ESR, CRP #### [address] Neutrophils/100 WBC (Bld) 85.4 % Normal . [facility] Comment on above: Performed By: #### C BC, BMP, FE PRO, B12, ESR, CRP #### [address] NRBC% 0.0 /100{WBC} Normal 0-0.5 [facility] Comment on above: Performed By: #### C BC, BMP, FE PRO, B12, ESR, CRP #### [address] Platelet mean volume (Bld) [Entitic vol] 6.7 fL Normal 6.6-10.1 [facility] Comment on above: Performed By: #### C BC, BMP, FE PRO, B12, ESR, CRP #### [address] Platelets (Bld) [#/Vol] 220 10*3/uL Normal 150-450 [facility] Comment on above: Performed By: #### C BC, BMP, FE PRO, B12, ESR, CRP #### [address] RBC (Bld) [#/Vol] 2.91 10*6/uL Low 3.90-5.60 [facility] Comment on above: Performed By: #### C BC, BMP, FE PRO, B12, ESR, CRP #### [address] WBC (Bld) [#/Vol] 10.5 10*3/uL Normal 4.1-10.5 [facility] Comment on above: Performed By: #### C BC, BMP, FE PRO, B12, ESR, CRP #### [facility] [address] Creatinine [Mass/volume] in Serum or PlasmaOrdered By: Nina Aleta on 02-08-2024 Creatinine [Mass/Vol] Creatinine [Mass/v olume] in Serum or Plasma High 0.70-1.30 [facility] Eosinophils Auto (Bld) [#/Vo l]Ordered By: Nina Aleta on 02-08-2024 Eosinophils (Bld) [#/Vol] Automated eosinophil count 0.0-0.45 [facility] Eosinophils/100 WBC Auto (Bl d)Ordered By: Nina Aleta on 02-08-2024 Eosinophils/100 WBC (Bld) Automated eosinophil % . [facility] Erythrocyte Sedimentation Ra мария 02-08-2024 ESR (Bld) [Velocity] 44 mm/h High 0-19 [facility] Comment on above: Result Comment: PERF ORMED BY: [place] [address] PATHOLOGIST [employer] FARRAH PAUL M.D. Performed By: #### C BC, BMP, FE PRO, B12, ESR, CRP #### [address] Erythrocyte distribution wid th Auto (RBC) [Ratio]Ordered By: Nina Aleta on 02-08-2024 Erythrocyte distribution width (RBC) [Ratio] Erythrocyte distribution width [Ratio] by Automated count High 12.0-14.8 [facility] Erythrocyte sedimentation ra te by Photometric methodOrdered By: Nina Aleta on 02-08-2024 ESR Photometric method (Bld) [Velocity] Erythrocyte sedimentation rate by Photometric method High 0-19 [facility] FE PROon 02-08-2024 % Iron Saturation Not performed Normal 20-50 [facility] Comment on above: Performed By: #### C BC, BMP #### [address] Ferritin [Mass/Vol] 422.9 ng/mL High 23.9-336.2 [facility] Comment on above: Performed By: #### C BC, BMP #### [facility] [address] [place] [address] [place] Iron [Mass/Vol] ug/dL Low 50-212 [facility] Comment on above: Performed By: #### C BC, BMP #### [facility] [address] [place] [address] [facility] Total Iron Binding Capacity 175 ug/dL Low 255-450 [facility] Comment on above: Performed By: #### C BC, BMP #### [facility] [address] [place] [address] [facility] Transferrin [Mass/Vol] 125 mg/dL Low 203-362 [facility] Comment on above: Performed By: #### C BC, BMP #### [facility] [address] [place] [id number] [facility] Ferritin [Mass/volume] in Se rum or PlasmaOrdered By: Nina River on 02-08-2024 Ferritin [Mass/Vol] Ferritin [Mass/volum e] in Serum or Plasma High 23.9-336.2 [facility] Glucose [Mass/volume] in Ser um or PlasmaOrdered By: Nina River on 02-08-2024 Glucose [Mass/Vol] Glucose [Mass/volume ] in Serum or Plasma High 70-100 [facility] Comment on above: ADA recommended refe rence rangeRandom Glucose Reference Range is dependent on time and content of last meal. Glucose of more than 200 mg/dL in a nonstressed, ambulatory subject supports the diagnosis of Diabetes Mellitus. Hematocrit Auto (Bld) [Volum e fraction]Ordered By: Nina River on 02-08-2024 Hematocrit (Bld) [Volume fraction] Hematocrit [Volume Fraction] of Blood by Automated count Low 38.8-50.0 [facility] Hemoglobin [Mass/volume] in BloodOrdered By: Nina River on 02-08-2024 Hemoglobin (Bld) [Mass/Vol] Hemoglobin [Mass/volume] in Blood Low 13.0-17.0 [facility] Iron [Mass/volume] in Serum or PlasmaOrdered By: Nina River on 02-08-2024 Iron [Mass/Vol] Iron [Mass/volume] i n Serum or Plasma Low 50-212 [facility] Leukocytes [#/volume] correc shreya for nucleated erythrocytes in Blood by Automated counOrdered By: Nina River on 02-08-2024 WBC corrected for nucl RBC Auto (Bld) [#/Vol] Leukocytes [#/volume] corrected for nucleated erythrocytes in Blood by Automated coun 4.1-10.5 [facility] Lymphocytes Auto (Bld) [#/Vo l]Ordered By: Ninastefan River on 02-08-2024 Lymphocytes (Bld) [#/Vol] Lymphocytes [#/volume] in Blood by Automated count Low 1.00-4.8 [facility] Lymphocytes/100 WBC Auto (Bl d)Ordered By: Nina River on 02-08-2024 Lymphocytes/100 WBC (Bld) Lymphocytes/100 leukocytes in Blood by Automated count . [facility] MCH Auto (RBC) [Entitic mass ]Ordered By: Nina River on 02-08-2024 MCH (RBC) [Entitic mass] MCH [Entitic mass] by Automated count Low 27.5-35.2 [facility] MCHC Auto (RBC) [Mass/Vol]Or dered By: Nina River on 02-08-2024 MCHC (RBC) [Mass/Vol] MCHC [Mass/volume] by Automated count 32.5-35.6 [facility] MCV Auto (RBC) [Entitic vol] Ordered By: Nina River on 02-08-2024 MCV (RBC) [Entitic vol] MCV [Entitic volume] by Automated count Low 83.5-101 [facility] Monocytes Auto (Bld) [#/Vol] Ordered By: Nina River on 02-08-2024 Monocytes (Bld) [#/Vol] Automated blood monocyte count 0.0-0.8 [facility] Monocytes/100 WBC Auto (Bld) Ordered By: Nina River on 02-08-2024 Monocytes/100 WBC (Bld) Automated monocyte % . [facility] Neutrophils Auto (Bld) [#/Vo l]Ordered By: Nina River on 02-08-2024 Neutrophils (Bld) [#/Vol] Neutrophils [#/volume] in Blood by Automated count High 1.8-7.7 [facility] Neutrophils/100 WBC Auto (Bl d)Ordered By: Nina River on 02-08-2024 Neutrophils/100 WBC (Bld) Automated neutrophil % . [facility] No Panel InformationOrdered By: Nina River on 02-08-2024 Estimated GFR (CKD-EPI) 48.779 mL/Min [facility] Creatinine Clearance (Chem N/A [facility] Nucleated erythrocytes [Pres ence] in Blood by Automated countOrdered By: Nina River on 02-08-2024 Nucleated RBC Auto Ql (Bld) Nucleated erythrocytes [Presence] in Blood by Automated count 0-0.5 [facility] Platelet mean volume Auto (B ld) [Entitic vol]Ordered By: Nina River on 02-08-2024 Platelet mean volume (Bld) [Entitic vol] Platelet mean volume [Entitic volume] in Blood by Automated count 6.6-10.1 [facility] Platelets Auto (Bld) [#/Vol] Ordered By: Nina River on 02-08-2024 Platelets (Bld) [#/Vol] Platelets [#/volume] in Blood by Automated count 150-450 [facility] Potassium [Moles/volume] in Serum or PlasmaOrdered By: Nina River on 02-08-2024 Potassium [Moles/Vol] Potassium [Moles/v olume] in Serum or Plasma 3.5-5.1 [facility] RBC Auto (Bld) [#/Vol]Ordere d By: Nina River on 02-08-2024 RBC (Bld) [#/Vol] Erythrocytes [#/volu me] in Blood by Automated count Low 3.90-5.60 [facility] Serum or plasma anion gap de terminationOrdered By: Nina River on 02-08-2024 Anion gap [Moles/Vol] Serum or plasma an ion gap determination 6.0-15.0 [facility] Serum or plasma iron binding capacity measurement (mass/volume)Ordered By: Nina River on 02-08-2024 Iron binding capacity [Mass/Vol] Iron binding capacity [Mass/volume] in Serum or Plasma Low 255-450 [facility] Serum or plasma iron saturat ion measurement (mass fraction)Ordered By: Nina River on 02-08-2024 Iron saturation [Mass fraction] Iron saturation [Mass Fraction] in Serum or Plasma [facility] Comment on above: Test not performed Sodium [Moles/volume] in Ser um or PlasmaOrdered By: Nina River on 02-08-2024 Sodium [Moles/Vol] Sodium [Moles/volume ] in Serum or Plasma 136-145 [facility] Transferrin [Mass/volume] in Serum or PlasmaOrdered By: Nina River on 02-08-2024 Transferrin [Mass/Vol] Transferrin [Mass/volume] in Serum or Plasma Low 203-362 [facility] Urea nitrogen [Mass/volume] in Serum or PlasmaOrdered By: Nina River on 02-08-2024 Urea nitrogen [Mass/Vol] Urea nitrogen [Mass/volume] in Serum or Plasma 7-25 [facility] Vitamin B12on 02-08-2024 Cobalamin (Vitamin B12) [Mass/Vol] 701 pg/mL Normal 180-914 [facility] Comment on above: Result Comment: PERF ORMED BY: [place] [address] PATHOLOGIST [employer] FARRAH PAUL M.D. Performed By: #### C BC, BMP #### [address] Vitamin B12 ser/plasOrdered By: Ninabharath River on 02-08-2024 Cobalamin (Vitamin B12) [Mass/Vol] Vitamin B12 ser/plas 180-914 [facility] WBC Auto (Bld) [#/Vol]Ordere d By: Ninastefan River on 02-08-2024 WBC (Bld) [#/Vol] Leukocytes [#/volume ] in Blood by Automated count 4.1-10.5 [facility] ALL CBC WITH AUTO DIFFon 09- 05-2024 BASOPHILS ABSOLUTE AUTO 0.0 [facility] Basophils/100 WBC (Bld) 0.3 % 0.2 - 2.0 % [facility] Eosinophils/100 WBC (Bld) 6.4 % 0.9 - 7.0 % [facility] Erythrocyte distribution width (RBC) [Ratio] 16.8 % High 11.0 - 15.0 % [facility] Hematocrit (Bld) [Volume fraction] 29.4 % Low 42.0 - 54.0 % [facility] Hemoglobin (Bld) [Mass/Vol] 9.0 g/dL Low 14.0 - 18.0 g/dL [facility] IMMATURE GRANULOCYTES ABS AUTO 0.04 High [facility] Immature granulocytes/100 WBC (Bld) 0.4 % 0.0 - 0.5 % [facility] Interpretation and review of laboratory results Abnormal [facility] LYMPHOCYTES ABSOLUTE AUTO 1.8 [facility] Lymphocytes/100 WBC (Bld) 17.7 % Low 20.5 - 60.0 % [facility] MCH (RBC) [Entitic mass] 25.3 pg Low 25.9 - 34.0 pg [facility] MCHC (RBC) [Mass/Vol] 30.6 g/dL 29.9 - 35.2 g/dL [facility] MCV (RBC) [Entitic vol] 82.6 fL 80.0 - 94.0 fL [facility] MONOCYTES ABSOLUTE AUTO 0.7 [facility] Monocytes/100 WBC (Bld) 6.7 % 1.7 - 12.0 % [facility] NEUTROPHILS ABSOLUTE AUTO 7.1 High [facility] Neutrophils/100 WBC (Bld) 68.5 % 43.0 - 75.0 % [facility] Platelet mean volume (Bld) [Entitic vol] 8.8 fL Low 9.5 - 13.5 fL [facility] TBH EO # 0.7 [facility] TB PLT 280 [facility] TB RBC 3.56 Low [facility] TB WBC 10.3 [facility] BONE MARROWon 10-11-2023 BONE MARROW SEE SEPARATE REPORT Normal [facility] Comment on above: Result Comment: REVI EWED BY SOLEDAD HUYNH M.D. Performed By: #### [facility], [address]82-7, MDSDF #### [facility] ([id number]) [address] [place] [id number] #### [id number], PENNY #### [facility] ([id number]) [address], [address] [place] [address] CBC AND AUTO DIFFon 15-20 24 ABSOLUTE BASOPHIL 0.0 X10E9/L Normal 0.0-0.2 [facility] Comment on above: Performed By: #### P INR, CBCA #### [facility] ([id number]) [address] [place] [address] ABSOLUTE NEUTROPHIL 8.0 X10E9/L High 1.5-6.6 [facility] Comment on above: Performed By: #### P INR, CBCA #### [facility] ([id number]) [address] [place] [address] Basophils/100 WBC (Bld) 0.3 % Normal [facility] Comment on above: Performed By: #### P INR, CBCA #### [facility] ([id number]) [address] [place] [address] Eosinophils (Bld) [#/Vol] 0.5 10*3/uL High 0.0-0.4 [facility] Comment on above: Performed By: #### P INR, CBCA #### [facility] ([id number]) [address] [place] [address] Eosinophils/100 WBC (Bld) 4.4 % Normal [facility] Comment on above: Performed By: #### P INR, CBCA #### [facility] ([id number]) [address] [place] [address] Erythrocyte distribution width (RBC) [Ratio] 16.8 % High 11.5-15.0 [facility] Comment on above: Performed By: #### P INR, CBCA #### [facility] ([id number]) [address] [place] [address] Hematocrit (Bld) [Volume fraction] 20.1 % Low 39-49 [facility] Comment on above: Performed By: #### P INR, CBCA #### [facility] ([id number]) [address] [place] [address] Hemoglobin (Bld) [Mass/Vol] 6.6 g/dL Critically low 13.0-17.0 [facility] Comment on above: Performed By: #### P INR, CBCA #### [facility] ([id number]) [address] [place] [address] Lymphocytes (Bld) [#/Vol] 1.4 10*3/uL Normal 1.0-3.5 [facility] Comment on above: Performed By: #### P INR, CBCA #### [facility] ([id number]) [address] [place] [address] Lymphocytes/100 WBC (Bld) 13.0 % Normal [facility] Comment on above: Performed By: #### P INR, CBCA #### [facility] ([id number]) [address] [place] [address] 06609 MCH (RBC) [Entitic mass] 24.7 pg Low 27-34 [facility] Comment on above: Performed By: #### P INR, CBCA #### [facility] ([id number]) [address] [place] [address] 02994 MCHC (RBC) [Mass/Vol] 32.6 g/dL Normal 32-36 [facility] Comment on above: Performed By: #### P INR, CBCA #### [facility] ([id number]) [address] [place] [address] 64531 MCV (RBC) [Entitic vol] 76 fL Low 80-100 [facility] Comment on above: Performed By: #### P INR, CBCA #### [facility] ([id number]) [address] [place] [address] 04907 Monocytes (Bld) [#/Vol] 0.9 10*3/uL Normal 0-0.9 [facility] Comment on above: Performed By: #### P INR, CBCA #### [facility] ([id number]) [address] [place] [address] 61388 Monocytes/100 WBC (Bld) 8.2 % Normal [facility] Comment on above: Performed By: #### P INR, CBCA #### [facility] ([id number]) [address] [place] [address] 98814 Neutrophils/100 WBC (Bld) 74.1 % Normal [facility] Comment on above: Performed By: #### P INR, CBCA #### [facility] ([id number]) [address] [place] [address] 41802 Platelet mean volume (Bld) [Entitic vol] 7.0 fL Normal 7-12 [facility] Comment on above: Performed By: #### P INR, CBCA #### [facility] ([id number]) [address] [place] [address] 39636 Platelets (Bld) [#/Vol] 371 10*3/uL Normal 150-450 [facility] Comment on above: Performed By: #### P INR, CBCA #### [facility] ([id number]) [address] [place] [address] 30409 RBC COUNT 2.66 X10E12/L Low 4.10-5.70 [facility] Comment on above: Performed By: #### P INR, CBCA #### [facility] ([id number]) [address] [place] [address] 34877 WBC (Bld) [#/Vol] 10.8 10*3/uL Normal 4.0-11.0 [facility] Comment on above: Performed By: #### P INR, CBCA #### [facility] ([id number]) [address] [place] [address] 04186 DNA and RNA Extract and Hold on 10-11-2023 DNA and RNA Extract and Hold SEE COMMENTS 10/14/2023 08:52 AM Normal [facility] Comment on above: Result Comment: NOTE [...] Molecular Hematopathology Laboratory's test catalog, please contact [facility] at [phone]. Method summary: DNA and RNA were extracted from the received specimen and stored at -80 C. This test was developed and its performance characteristics determined by [facility] in a manner consistent with CLIA requirements. This test has not been cleared or approved by the U.S. Food and Drug Administration. Test Performed by: [facility] [place] [address] Extension Service Specialist In Charge: Rosie Ruby Ph.D.; CLIA# [id number] Performed By: #### E XHR, 86261-7, MDSDF #### [facility] ([id number]) [address] [place] [address] #### 13792-9, PENNY #### [facility] ([id number]) [address] [place] [address] Flow cytometry specialist re view Álvaro (Unsp spec) [Interp]on 10-11-2023 FLOW CYTOMETRY BM SEE SEPARATE REPORT, REVIEWED BY PATHOLOGIST Normal [facility] Comment on above: Performed By: #### E XHR, 83051-5, MDSDF #### [facility] ([id number]) [address] [place] [address], [place] [address] #### 41105-9, BONMAR #### [facility] ([id number]) [address] [place] [address] IR BX AND ASP BONE MARROW SN [...] on the left iliac bone using an [employer] powered bone marrow biopsy system. The bone [...] Guerrero MD on 10/11/2023 9:49 AM Normal [facility] Karyotype Nom (BM)on 10-10- 024 CHROMOSOME BONE MARROW SEE COMMENTS 10/19/2023 02:37 PM Normal [facility] Comment on above: Result Comment: NOTE Test Result Flag Unit RefValue -- Chromosomes, Hematologic, BM Result Summary Normal Interpretation See Note No clonal abnormality was apparent. Since this conventional chromosome study was successful, MDS, Diag FISH was cancelled per lab protocol (Isma Christie et al., CP, 146:86-94, 2016; [facility] MDS Algorithm: www.fort defianceAppTrigger.com/it-mmfiles/Myelodysplastic_Syndrome_G uideline_to_Diagnosis_and_Follow-up.pdf). Result 46,XY[20] Reason for Referral leukocytosis [...] testing process was performed at [facility] [employer] site 065304. Released By Tanvi Loo M.D. Test Performed by: [facility] [address] [place] [address] Extension Service Specialist In Charge: Rosie Ruby Ph.D.; CLIA# [id number] Performed By: #### E XHR, 02885-7, MDSDF #### [facility] ([id number]) [address] [place] [address], [place] [address] #### 68521-5, BONMAR #### [facility] ([id number]) [address] [place] [address], [address] [place] [address] MYELODYSPLASTIC SYNDROME (MD Jack),DIAGNOSTIC FISH, VARIESon 10-11-2023 MYELODYSPLASTIC SYNDROME (MDS),DIAGNOSTIC FISH, VARIES SEE COMMENTS 10/22/2023 08:45 AM Normal [facility] Comment on above: Result Comment: NOTE Test Result Flag Unit RefValue -- MDS, Diagnostic FISH Interpretation TNP MDS, Diagnostic FISH was cancelled on 10/22/2023 at 08:41; Based on other test results additional testing not required. MDS FISH order was cancelled per laboratory protocol (Isma et al., Amer J Clin Pathol 146:86-94, 2016; [facility] MDS Algorithm: www.fort defianceAllthetopbananas.comcallaboratories.com/it-mmfiles/Myelodysplastic_S yndrome_Guideline_ to_Diagnosis_and_Follow-up.pdf) with Probes -RPN1(G)/MECOM(R), -TP53(R)/D17Z1(G), -D8Z2(G)/MYC(R), -G83T499(R)/20QTER(G), -Z5X050(G)/EGR1(R), -D7Z1(G)/Y7U393(R) Test Performed by: [facility] [address] [place] [address] Extension Service Specialist In Charge: Rosie Ruby Ph.D.; CLIA# [id number] Performed By: #### E XHR, 11489-2, MDSDF #### [facility] ([id number]) [address] [place] [address] 21223 #### 02620-1, BONMAR #### [facility] ([id number]) [address] [place] [address], [address] [place] [address] PROTIME AND INRon 10-11-2023 INR Coag (PPP) [Relative time] 1.3 {INR} High 0.8-1.1 [facility] Comment on above: Performed By: #### P INR, CBCA #### [facility] ([id number]) [address] [place] [address] 25697 PT Coag (PPP) [Time] 14.9 s High 9.8-13.2 [facility] Comment on above: Result Comment: NEW REFERENCE RANGE Performed By: #### P INR, CBCA #### [facility] ([id number]) [address] [place] [address] 58354 Surgical Pathologyon 024 Surgical Pathology Normal [facility] Comment on above: Result Comment: [facility] [address] [place] [address] Bone Marrow Consultation Patient Name:GANGA STINSON:1960 (Age: 63)Gender:MTaken:4Reported:4Physician(s):Nina River ([phone])Copy To:Khadar Guerrero M.D. Rec. #:[id number]: #[id number] Final Pathologic Diagnosis Bone marrow, aspiration and [...] acquisition are identified on maturing myeloid cells. [place] on the lymphoid population demonstrates a mixed population of phenotypically unremarkable T-cells, polyclonal B-cells, and natural killer cells, without a detectable monoclonal population. No monotypic plasma cell population is identified. Immunophenotyping antibodies tested: CD2, CD3, CD4, CD5, CD7, CD8, CD10, CD13, CD16, CD19, CD20 , CD23, CD33, CD34, CD38, CD43, CD45, CD56, CD117, CD123, CD138, [place], Lambda. Cytoplasmic [place]/CD38, Cytoplasmic Lambda/CD38, and intrinsic VS38 Immunophenotyping Comment: Immunophenotyping has been used in this diagnostic evaluation. This test was developed and its performance characteristics determined by the [facility]. It has not been [...] Out Soledad Huynh MD Interpretation [place] [address], License number: [id number]. Clinical History Leukocytosis. Gross Description 1. Received in B plus fixative labeled ALLOWAY, clot is a friable portion of hemorrhagic material, 2.2 x 1.0 x 0.4 cm in aggregate. The specimen is submitted entirely in a single cassette. (1, ns, [id number], m1) LADONNA 2. Received in B plus fixative labeled ALLOWAY, core is a pale osborne-parod cylindrical segment of bone with adherent hemorrhagic material, 1.0 cm in length and 0.2 cm in diameter. The specimen is submitted entirely in a single cassette following a period of decalcification in Rapid-Delbert Immuno. (1, ns, [id number], m1) LADONNA Comment: Per epic IR procedure [...] Bah on 06-04-2023 Glucose [Mass/Vol] 134 mg/dL [facility] Comment on above: Random Glucose Refer ence Range is dependent on time and content of last meal. Glucose of more than 200 mg/dL in a nonstressed, ambulatory subject supports the diagnosis of Diabetes Mellitus. Gram stain for investigation of transfusion reactionOrdered By: Jonathan Bah on 06-04-2023 Microscopic observation Gram stain Nom (Unsp spec) Prevotella disiens [facility] Cult,Urineon 09-26-2022 Cult,Urine Specimen Description .CLEAN CATCH URINE Culture NO SIGNIFICANT GROWTH Report Status FINAL 09/26/2022 Normal [facility] Comment on above: Performed By: #### C MPX, CDP #### [facility] [address] [place], [place] [address] Extension Service Specialist In Charge: Khadar Tang MD US RENAL COMPLETEon 09-20-19 [...] Alexander Mcclain DO 09/19/22 Final result Normal [facility] Unremarkable ultraso und of the kidneys and urinary bladder. [facility] RIS CONSOLIDATED EXAMINATION: RETROPERITONEAL ULTRASOUND OF THE [...] post void residual. PN RIS CONSOLIDATED Alexander Mcclain, DO - 09/19/2022 EXAMINATION: RETROPERITONEAL ULTRASOUND OF [...] ultrasound of the kidneys and urinary bladder. [facility] US RENAL COMPLETEOrdered By: Alexander Mcclain on 09-19-2022 [facility] Work Phone: Basic Metabolic Profon 09-18 Anion gap [Moles/Vol] 10 mmol/L Normal 9-17 [facility] Comment on above: Performed By: #### B MP #### [facility] [address] [place] [address] Extension Service Specialist In Charge: Khadar Tang MD BUN/CRE Ratio 26 High 9-20 [facility] Comment on above: Performed By: #### B MP #### [facility] [address] [place] [address] Extension Service Specialist In Charge: Khadar Tang MD Calcium [Mass/Vol] 9.3 mg/dL Normal 8.6-10.4 [facility] Comment on above: Performed By: #### B MP #### [facility] [address] [place] [address] Extension Service Specialist In Charge: Khadar Tang MD Chloride [Moles/Vol] 105 mmol/L Normal 98-107 [facility] Comment on above: Performed By: #### B MP #### [facility] [address] [place] [address] Extension Service Specialist In Charge: Khadar Tang MD CO2 [Moles/Vol] 22 mmol/L Normal 20-31 [facility] Comment on above: Performed By: #### B MP #### [facility] [address] [place], [place] [address] Extension Service Specialist In Charge: Khadar Tang MD Creatinine [Mass/Vol] 1.25 mg/dL High 0.70-1.20 [facility] Comment on above: Performed By: #### B MP #### [facility] [address] [place], [place] [address] Extension Service Specialist In Charge: Khadar Tang MD GFR/1.73 sq M.predicted among non-blacks MDRD (S/P/Bld) [Vol rate/Area] mL/min/{1.73_m2} Normal >60 [facility] Comment on above: Result [...] secretion. Performed By: #### B MP #### [facility] [address] [place] [address] [place] [address] Extension Service Specialist In Charge: Khadar Tang MD Glucose [Mass/Vol] 186 mg/dL High 70-99 [facility] Comment on above: Performed By: #### B MP #### [facility] [address] [place], [place] [address] Extension Service Specialist In Charge: Khadar Tang MD Potassium [Moles/Vol] 4.1 mmol/L Normal 3.7-5.3 [facility] Comment on above: Performed By: #### B MP #### [facility] [address] [place] [address] Extension Service Specialist In Charge: Khadar Tang MD Sodium [Moles/Vol] 137 mmol/L Normal 135-144 [facility] Comment on above: Performed By: #### B MP #### [address] [place] [address] Extension Service Specialist In Charge: Khadar Tang MD Urea nitrogen [Mass/Vol] 32 mg/dL High 8-23 [facility] Comment on above: Performed By: #### B MP #### [address] [place] [address] Extension Service Specialist In Charge: Khadar Tang MD RENAL COMPLETEon 09-19-19 Radiology Study observation (narrative) [facility] Hemoglobin A1Con 2022 Glucose [Mass/Vol] 171 mg/dL Normal [facility] Comment on above: Result Comment: The ADA and AACC recommend providing the estimated average glucose result to permit better patient understanding of their HBA1c result. Performed By: #### G LYHGB #### [address] [place], [place] [id number] Extension Service Specialist In Charge: Jeff Casanova MD HbA1c (Bld) [Mass fraction] 7.6 % High 4.0-6.0 [facility] Comment on above: Performed By: #### G LYHGB #### [address] [place], [place] [id number] Extension Service Specialist In Charge: Jeff Casanova MD OPERATIVE REPORTon 3 OPERATIVE REPORT [address] [address] OPERATIVE REPORT PATIENT NAME: GANGA STINSON : 1960 MED REC NO: [id number] ROOM: ACCOUNT NO: [id number] ADMIT DATE: 2022 PROVIDER: Angeles Nagy DATE OF PROCEDURE: 2022 SURGEON: Dr. Angeles Nagy. ACCREDITED PHARMACY TECHNICIAN: None. PREOPERATIVE DIAGNOSES: 1. Neurogenic bladder. 2. Urethral stricture. POSTOPERATIVE DIAGNOSES: 1. Neurogenic bladder. 2. Urethral stricture. PROCEDURE PERFORMED: Direct visual internal urethrotomy. ANESTHESIA: General. COMPLICATIONS: None. ESTIMATED BLOOD LOSS: Minimal. SPECIMENS: None. PROSTHESIS: An 18-Bahraini Rowe catheter. DISPOSITION: Stable. FINDINGS: Bulbous urethral stricture. 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 DESCRIPTION OF PROCEDURE: The patient was taken back to the operating room after informed consent including all risks, benefits, and alternatives were obtained. [facility], where he was induced under general anesthesia and given IV Ancef for preoperative antibiotic prophylaxis. To begin the case, he was prepped and draped in the normal sterile fashion and placed in dorsal lithotomy. He had a 21-Bahraini sheath with a 30-degree lens passed through [...] then removed the scope and inserted an 18-Bahraini Rowe catheter with ease. He was then awoken from general anesthesia, [facility], and taken to the PACU in satisfactory condition by Nursing and Anesthesia Teams. PLAN: The patient will be discharged home per PACU criterion and follow up with me in one week for Rowe catheter removal. ANGELES NAGY [place]/Jerry_CGGIS_I Doc#: [id number] CC: Normal [facility] Basic Metabolic Panelon 04-0 Anion gap [Moles/Vol] 10 mmol/L 9 - 17 mmol/L [facility] Calcium [Mass/Vol] 8.8 mg/dL 8.6 - 10. 4 mg/dL [facility] Chloride [Moles/Vol] 106 mmol/L 98 - 10 7 mmol/L [facility] CO2 [Moles/Vol] 24 mmol/L 20 - 31 mmol/L [facility] Creatinine [Mass/Vol] 1.3 mg/dL High 0.70 - 1.20 mg/dL [facility] GFR/1.73 sq M.predicted MDRD (S/P/Bld) [Vol rate/Area] - PINF [facility] Comment on above: These results are not [...] 250 mg/dL High 70 - 99 mg/dL [facility] Interpretation and review of laboratory results Abnormal [facility] Potassium [Moles/Vol] 4.0 mmol/L 3.7 - 5.3 mmol/L [facility] Sodium [Moles/Vol] 140 mmol/L 135 - 144 mmol/L [facility] Urea nitrogen [Mass/Vol] 29 mg/dL High 8 - 23 mg/dL [facility] Urea nitrogen/Creatinine (Bld) [Mass ratio] 22 High 9 - 20 [facility] Basic Metabolic Profon 07-02 Anion gap [Moles/Vol] 10 mmol/L Normal 9-17 [facility] Comment on above: Performed By: #### C MPX, CDP #### [facility] [address] [place], [place] [address] Extension Service Specialist In Charge: Khadar Tang MD BUN/CRE Ratio 22 High 9-20 [facility] Comment on above: Performed By: #### C MPX, CDP #### [facility] [address] [place], [place] [address] Extension Service Specialist In Charge: Khadar Tang MD Calcium [Mass/Vol] 8.8 mg/dL Normal 8.6-10.4 [facility] Comment on above: Performed By: #### C MPX, CDP #### [facility] [address] [place], [place] [address] Extension Service Specialist In Charge: Khadar Tang MD Chloride [Moles/Vol] 106 mmol/L Normal 98-107 [facility] Comment on above: Performed By: #### C MPX, CDP #### [facility] [address] [place], [place] [address] Extension Service Specialist In Charge: Khadar Tang MD CO2 [Moles/Vol] 24 mmol/L Normal 20-31 [facility] Comment on above: Performed By: #### C MPX, CDP #### [facility] [address] [place], [place] [address] Extension Service Specialist In Charge: Khadar Tang MD Creatinine [Mass/Vol] 1.30 mg/dL High 0.70-1.20 [facility] Comment on above: Performed By: #### C MPX, CDP #### [facility] [address] [place] [address] Extension Service Specialist In Charge: Khadar Tang MD GFR/1.73 sq M.predicted among non-blacks MDRD (S/P/Bld) [Vol rate/Area] mL/min/{1.73_m2} Normal >60 [facility] Comment on above: Result [...] Performed By: #### C MPX, CDP #### [facility] [address] [place] [address] Extension Service Specialist In Charge: Khadar Tang MD Glucose [Mass/Vol] 250 mg/dL High 70-99 [facility] Comment on above: Performed By: #### C MPX, CDP #### [facility] [address] [place] [address] Extension Service Specialist In Charge: Khadar Tang MD Potassium [Moles/Vol] 4.0 mmol/L Normal 3.7-5.3 [facility] Comment on above: Performed By: #### C MPX, CDP #### [facility] [address] [place], [place] [id number] Extension Service Specialist In Charge: Khadar Tang MD Sodium [Moles/Vol] 140 mmol/L Normal 135-144 [facility] Comment on above: Performed By: #### C MPX, CDP #### [facility] [address] [place], [place] [id number] Extension Service Specialist In Charge: Khadar Tang MD Urea nitrogen [Mass/Vol] 29 mg/dL High 8-23 [facility] Comment on above: Performed By: #### C MPX, CDP #### [facility] [address] [place], [facility] Extension Service Specialist In Charge: Khadar Tang MD CBC with Auto Differentialon 07-02-2022 Absolute Eos # 0.80 High [place] [facility] Absolute Immature Granulocyte 0.06 [facility] Absolute Lymph # 1.38 [place] [facility] Absolute Otoe # 0.81 [facility] Basophils Absolute [place] [facility] Basophils/100 WBC (Bld) 0 % 0 - 2 % [facility] Eosinophils/100 WBC (Bld) 7 % High 1 - 4 % [facility] Hematocrit (Bld) [Volume fraction] 26.8 % Low 40.7 - 50.3 % [facility] Hemoglobin (Bld) [Mass/Vol] 7.9 g/dL Low 13.0 - 17.0 g/dL [facility] Immature granulocytes/100 WBC (Bld) 1 % High 0 [facility] Interpretation and review of laboratory results Abnormal [facility] Lymphocytes/100 WBC (Bld) 13 % Low 24 - 43 % [facility] MCH (RBC) [Entitic mass] 23.3 pg Low 25.2 - 33.5 pg [facility] MCHC (RBC) [Mass/Vol] 29.5 g/dL 28.4 - 34.8 g/dL [facility] MCV (RBC) [Entitic vol] 79.1 fL Low 82.6 - 102.9 fL [facility] Monocytes/100 WBC (Bld) 8 % 3 - 12 % [facility] NRBC Automated 0.0 0.0 per 100 WBC [facility] Platelet distribution width (Bld) [Ratio] 16.1 % High 11.8 - 14.4 % [facility] Platelet mean volume (Bld) [Entitic vol] 9.1 fL 8.1 - 13.5 fL [facility] Platelets (Bld) [#/Vol] 241 10*3/uL [facility] RBC (Bld) [#/Vol] 3.39 10*6/uL Low 4.21 - 5.77 m/uL [facility] Segmented neutrophils/100 WBC (Bld) 71 % High 36 - 65 % [facility] Segs Absolute 7.79 [facility] WBC (Bld) [#/Vol] 10.9 10*3/uL [facility] CBC with Diffon 07-02-2022 Abs. Basophil <0.03 Normal 0.00-0.20 [facility] Comment on above: Performed By: #### C MPX, CDP #### [facility] [address] [place] [address] Extension Service Specialist In Charge: Khadar Tang MD Abs.Imm.Granulocyte 0.06 k/uL Normal 0.00-0.30 [facility] Comment on above: Performed By: #### C MPX, CDP #### [facility] [address] [place], [place] [address] Extension Service Specialist In Charge: Khadar Tang MD Abs.Neutrophil (Seg) 7.79 k/uL Normal 1.50-8.10 [facility] Comment on above: Performed By: #### C MPX, CDP #### [facility] [address] [place] [address] [place] [place], [place] [id number] Extension Service Specialist In Charge: Khadar Tang MD Basophils/100 WBC (Bld) 0 % Normal 0-2 [facility] Comment on above: Performed By: #### C MPX, CDP #### [address] [place], [place] [id number] Extension Service Specialist In Charge: Khadar Tang MD Eosinophils (Bld) [#/Vol] 0.80 10*3/uL High 0.00-0.44 [facility] Comment on above: Performed By: #### C MPX, CDP #### [address] [place], [place] 38[address] Extension Service Specialist In Charge: Khadar Tang MD Eosinophils/100 WBC (Bld) 7 % High 1-4 [facility] Comment on above: Performed By: #### C MPX, CDP #### [address] [place], [place] [phone] Extension Service Specialist In Charge: Khadar Tang MD Erythrocyte distribution width (RBC) [Ratio] 16.1 % High 11.8-14.4 [facility] Comment on above: Performed By: #### C MPX, CDP #### [address] [place], [place] [address] Extension Service Specialist In Charge: Khadar Tang MD Hematocrit (Bld) [Volume fraction] 26.8 % Low 40.7-50.3 [facility] Comment on above: Performed By: #### C MPX, CDP #### [address] [place] [address] Extension Service Specialist In Charge: Khadar Tang MD Hemoglobin (Bld) [Mass/Vol] 7.9 g/dL Low 13.0-17.0 [facility] Comment on above: Performed By: #### C MPX, CDP #### [address] [place], [place] [phone] Extension Service Specialist In Charge: Khadar Tang MD Immature granulocytes/100 WBC (Bld) 1 % High 0 [facility] Comment on above: Performed By: #### C MPX, CDP #### [facility] [address] [place] [phone] Extension Service Specialist In Charge: Khadar Tang MD Lymphocytes (Bld) [#/Vol] 1.38 10*3/uL Normal 1.10-3.70 [facility] Comment on above: Performed By: #### C MPX, CDP #### [address] [place], [place] [phone] Extension Service Specialist In Charge: Khadar Tang MD Lymphocytes/100 WBC (Bld) 13 % Low 24-43 [facility] Comment on above: Performed By: #### C MPX, CDP #### [address] [place], [facility]83 Extension Service Specialist In Charge: Khadar Tang MD MCH (RBC) [Entitic mass] 23.3 pg Low 25.2-33.5 [facility] Comment on above: Performed By: #### C MPX, CDP #### [address] [place], [place] [phone] Extension Service Specialist In Charge: Khadar Tang MD MCHC (RBC) [Mass/Vol] 29.5 g/dL Normal 28.4-34.8 [facility] Comment on above: Performed By: #### C MPX, CDP #### [facility] [address] [place] [address] Dr. [place], [place] [phone] Extension Service Specialist In Charge: Khadar Tang MD MCV (RBC) [Entitic vol] 79.1 fL Low 82.6-102.9 [facility] Comment on above: Performed By: #### C MPX, CDP #### [address] [place] [address] Extension Service Specialist In Charge: Khadar Tang MD Monocytes (Bld) [#/Vol] 0.81 10*3/uL Normal 0.10-1.20 [facility] Comment on above: Performed By: #### C MPX, CDP #### [facility] [address] [place], [place] [phone] Extension Service Specialist In Charge: Khadar Tang MD Monocytes/100 WBC (Bld) 8 % Normal 3-12 [facility] Comment on above: Performed By: #### C MPX, CDP #### [facility] [address] [place], [place] [phone] Extension Service Specialist In Charge: Khadar Tang MD Neutrophil (Seg) 71 % High 36-65 [facility] Comment on above: Performed By: #### C MPX, CDP #### [facility] [address] [place], [place] [phone] Extension Service Specialist In Charge: Khadar Tang MD NRBC Automated 0.0 per 100 WBC Normal 0.0 [facility] Comment on above: Performed By: #### C MPX, CDP #### [facility] [address] [place] [address] Extension Service Specialist In Charge: Khadar Tang MD Platelet mean volume (Bld) [Entitic vol] 9.1 fL Normal 8.1-13.5 [facility] Comment on above: Performed By: #### C MPX, CDP #### [facility] [address] [place] [address] Extension Service Specialist In Charge: Khadar Tang MD Platelets (Bld) [#/Vol] 241 10*3/uL Normal 138-453 [facility] Comment on above: Performed By: #### C MPX, CDP #### [facility] [address] [place] [address] Extension Service Specialist In Charge: Khadar Tang MD RBC (Bld) [#/Vol] 3.39 10*6/uL Low 4.21-5.77 [facility] Comment on above: Performed By: #### C MPX, CDP #### [facility] [address] [place] [address] Extension Service Specialist In Charge: Khadar Tang MD WBC (Bld) [#/Vol] 10.9 10*3/uL Normal 3.5-11.3 [facility] Comment on above: Performed By: #### C MPX, CDP #### [facility] [address] [place], [place] [address] Extension Service Specialist In Charge: Khadar Tang MD Cult,Woundon 06-27-2022 Cult,Wound Specimen Description .WOUND Special Requests LEG Direct Exam NO NEUTROPHILS SEEN NO ORGANISMS SEEN Culture NO GROWTH Report Status FINAL 06/27/2022 Normal [facility] Comment on above: Performed By: #### C MPX, CDP #### [facility] [address] [place], [place] [address] Extension Service Specialist In Charge: Khadar Tang MD CBC auto differentialon 05-29 Absolute Eos # 0.63 High [facility] Absolute Immature Granulocyte 0.05 [facility] Absolute Lymph # 1.33 [facility] Absolute Otoe # 0.82 [facility] Basophils Absolute [facility] Basophils/100 WBC (Bld) 0 % 0 - 2 % [facility] Eosinophils/100 WBC (Bld) 7 % High 1 - 4 % [facility] Hematocrit (Bld) [Volume fraction] 24.4 % Low 40.7 - 50.3 % [facility] Hemoglobin (Bld) [Mass/Vol] 7.6 g/dL Low 13.0 - 17.0 g/dL [facility] Immature granulocytes/100 WBC (Bld) 1 % High 0 [facility] Interpretation and review of laboratory results Abnormal [facility] Lymphocytes/100 WBC (Bld) 14 % Low 24 - 43 % [facility] MCH (RBC) [Entitic mass] 23.8 pg Low 25.2 - 33.5 pg [facility] MCHC (RBC) [Mass/Vol] 31.1 g/dL 28.4 - 34.8 g/dL [facility] MCV (RBC) [Entitic vol] 76.3 fL Low 82.6 - 102.9 fL [facility] Monocytes/100 WBC (Bld) 9 % 3 - 12 % [facility] NRBC Automated 0.0 0.0 per 100 WBC [facility] Platelet distribution width (Bld) [Ratio] 16.0 % High 11.8 - 14.4 % [facility] Platelet mean volume (Bld) [Entitic vol] 8.8 fL 8.1 - 13.5 fL [facility] Platelets (Bld) [#/Vol] 205 10*3/uL [facility] RBC (Bld) [#/Vol] 3.20 10*6/uL Low 4.21 - 5.77 m/uL [facility] Segmented neutrophils/100 WBC (Bld) 69 % High 36 - 65 % [facility] Segs Absolute 6.49 [facility] WBC (Bld) [#/Vol] 9.3 10*3/uL [facility] CBC with Diffon 06-26-2022 Abs. Basophil <0.03 Normal 0.00-0.20 [facility] Comment on above: Performed By: #### C MPX, CDP #### [facility] [address] [place] [address] Dr. [place], [place] [phone] Extension Service Specialist In Charge: Khadar Tang MD Abs.Imm.Granulocyte 0.05 k/uL Normal 0.00-0.30 [facility] Comment on above: Performed By: #### C MPX, CDP #### [facility] [address] [place] [address] Extension Service Specialist In Charge: Khadar Tang MD Abs.Neutrophil (Seg) 6.49 k/uL Normal 1.50-8.10 [facility] Comment on above: Performed By: #### C MPX, CDP #### [facility] [address] [place] [address] [place], [place] [address] Extension Service Specialist In Charge: Khadar Tang MD Basophils/100 WBC (Bld) 0 % Normal 0-2 [facility] Comment on above: Performed By: #### C MPX, CDP #### [facility] [address] [place] [address] [place] [address] Extension Service Specialist In Charge: Khadar Tang MD Eosinophils (Bld) [#/Vol] 0.63 10*3/uL High 0.00-0.44 [facility] Comment on above: Performed By: #### C MPX, CDP #### [address] [place] [address] Extension Service Specialist In Charge: Khadar Tang MD Eosinophils/100 WBC (Bld) 7 % High 1-4 [facility] Comment on above: Performed By: #### C MPX, CDP #### [address] [place] [address] Extension Service Specialist In Charge: Khadar Tang MD Erythrocyte distribution width (RBC) [Ratio] 16.0 % High 11.8-14.4 [facility] Comment on above: Performed By: #### C MPX, CDP #### [address] [place] [address] Extension Service Specialist In Charge: Khadar Tang MD Hematocrit (Bld) [Volume fraction] 24.4 % Low 40.7-50.3 [facility] Comment on above: Performed By: #### C MPX, CDP #### [address] [place] [address] Extension Service Specialist In Charge: Khadar Tang MD Hemoglobin (Bld) [Mass/Vol] 7.6 g/dL Low 13.0-17.0 [facility] Comment on above: Performed By: #### C MPX, CDP #### [address] [place] [address] Extension Service Specialist In Charge: Khadar Tang MD Immature granulocytes/100 WBC (Bld) 1 % High 0 [facility] Comment on above: Performed By: #### C MPX, CDP #### [facility] [address] [place], [place] [address] Extension Service Specialist In Charge: Khadar Tang MD Lymphocytes (Bld) [#/Vol] 1.33 10*3/uL Normal 1.10-3.70 [facility] Comment on above: Performed By: #### C MPX, CDP #### [facility] [address] [place] [address] [place], [place] [address] Extension Service Specialist In Charge: Khadar Tang MD Lymphocytes/100 WBC (Bld) 14 % Low 24-43 [facility] Comment on above: Performed By: #### C MPX, CDP #### [address] [place], [place] [phone] Extension Service Specialist In Charge: Khadar Tang MD MCH (RBC) [Entitic mass] 23.8 pg Low 25.2-33.5 [facility] Comment on above: Performed By: #### C MPX, CDP #### [address] [place], [place] [phone] Extension Service Specialist In Charge: Khadar Tang MD MCHC (RBC) [Mass/Vol] 31.1 g/dL Normal 28.4-34.8 [facility] Comment on above: Performed By: #### C MPX, CDP #### [facility] [address] [place] [address] Dr. [place], [place] [phone] Extension Service Specialist In Charge: Khadar Tang MD MCV (RBC) [Entitic vol] 76.3 fL Low 82.6-102.9 [facility] Comment on above: Performed By: #### C MPX, CDP #### [address] [place] [address] Extension Service Specialist In Charge: Khadar Tang MD Monocytes (Bld) [#/Vol] 0.82 10*3/uL Normal 0.10-1.20 [facility] Comment on above: Performed By: #### C MPX, CDP #### [facility] [address] [place], [place] [phone] Extension Service Specialist In Charge: Khadar Tang MD Monocytes/100 WBC (Bld) 9 % Normal 3-12 [facility] Comment on above: Performed By: #### C MPX, CDP #### [facility] [address] [place], [facility]83 Extension Service Specialist In Charge: Khadar Tang MD Neutrophil (Seg) 69 % High 36-65 [facility] Comment on above: Performed By: #### C MPX, CDP #### [facility] [address] [place], [place] [phone] Extension Service Specialist In Charge: Khadar Tang MD NRBC Automated 0.0 per 100 WBC Normal 0.0 [facility] Comment on above: Performed By: #### C MPX, CDP #### [address] [place], [facility]83 Extension Service Specialist In Charge: Khadar Tang MD Platelet mean volume (Bld) [Entitic vol] 8.8 fL Normal 8.1-13.5 [facility] Comment on above: Performed By: #### C MPX, CDP #### [address] [place], [place] 7571683 Extension Service Specialist In Charge: hKadar Tang MD Platelets (Bld) [#/Vol] 205 10*3/uL Normal 138-453 [facility] Comment on above: Performed By: #### C MPX, CDP #### [address] [place], [place] [phone] Extension Service Specialist In Charge: Khadar Tang MD RBC (Bld) [#/Vol] 3.20 10*6/uL Low 4.21-5.77 [facility] Comment on above: Performed By: #### C MPX, CDP #### [facility] [address] [place] [address] [place], [place] [address] Extension Service Specialist In Charge: Khadar Tang MD WBC (Bld) [#/Vol] 9.3 10*3/uL Normal 3.5-11.3 [facility] Comment on above: Performed By: #### C MPX, CDP #### [facility] [address] [place], [place] [address] Extension Service Specialist In Charge: Khadar Tang MD EKG Rhythm Stripon 3 rd [facility] Glucose, Whole Bloodon 06-26 Glucose [Mass/Vol] 95 mg/dL 74 - 100 mg/dL [facility] No Panel Informationon 06-26 No dictation [facility] Work Phone: [facility] Work Phone: Surgical Pathologyon 023 Surgical Pathology [...] performed. SURGICAL PATHOLOGY CONSULTATION Patient Name: GANGA SITNSON [facility] Rec: [id number] Path Number: [id number] [facility] [employer] [facility] [facility] ANATOMIC PATHOLOGY [address] [place] [phone] Normal [facility] Comment on above: Performed By: #### C MPX, CDP #### [facility] [address] [place], [place] [address] Extension Service Specialist In Charge: Khadar Tang MD Blood occult stool #1on 05-29 Date, Stool #1 3 [place] [facility] Comment on above: 30 23 Hemoglobin.gastrointe stinal spec 1 Ql (Stl) Negative NEGATIVE [facility] Time, Stool #1 1945 [facility] CBC auto differentialon 05-29 Absolute Eos # 0.63 High [facility] Absolute Immature Granulocyte 0.07 [facility] Absolute Lymph # 1.63 [facility] Absolute Otoe # 0.76 [facility] Basophils Absolute [facility] Basophils/100 WBC (Bld) 0 % 0 - 2 % [facility] Eosinophils/100 WBC (Bld) 7 % High 1 - 4 % [facility] Hematocrit (Bld) [Volume fraction] 24.6 % Low 40.7 - 50.3 % [facility] Hemoglobin (Bld) [Mass/Vol] 7.6 g/dL Low 13.0 - 17.0 g/dL [facility] Immature granulocytes/100 WBC (Bld) 1 % High 0 [facility] Interpretation and review of laboratory results Abnormal [facility] Lymphocytes/100 WBC (Bld) 19 % Low 24 - 43 % [facility] MCH (RBC) [Entitic mass] 23.7 pg Low 25.2 - 33.5 pg [facility] MCHC (RBC) [Mass/Vol] 30.9 g/dL 28.4 - 34.8 g/dL [facility] MCV (RBC) [Entitic vol] 76.6 fL Low 82.6 - 102.9 fL [facility] Monocytes/100 WBC (Bld) 9 % 3 - 12 % [facility] NRBC Automated 0.0 0.0 per 100 WBC [facility] Platelet distribution width (Bld) [Ratio] 15.9 % High 11.8 - 14.4 % [facility] Platelet mean volume (Bld) [Entitic vol] 8.9 fL 8.1 - 13.5 fL [facility] Platelets (Bld) [#/Vol] 223 10*3/uL [facility] RBC (Bld) [#/Vol] 3.21 10*6/uL Low 4.21 - 5.77 m/uL [facility] Segmented neutrophils/100 WBC (Bld) 64 % 36 - 65 % [facility] Segs Absolute 5.60 [facility] WBC (Bld) [#/Vol] 8.7 10*3/uL [facility] CBC with Diffon 06-25-2022 Abs. Basophil <0.03 Normal 0.00-0.20 [facility] Comment on above: Performed By: #### T ROPI #### [facility] [address] [place] [address] Dr. [place] [phone] Extension Service Specialist In Charge: Khadar Tang MD Abs.Imm.Granulocyte 0.07 k/uL Normal 0.00-0.30 [facility] Comment on above: Performed By: #### T ROPI #### [facility] [address] [place], [place] [address] Extension Service Specialist In Charge: Khadar Tang MD Abs.Neutrophil (Seg) 5.60 k/uL Normal 1.50-8.10 [facility] Comment on above: Performed By: #### T ROPI #### [address] [place] [phone] Extension Service Specialist In Charge: Khadar Tang MD Basophils/100 WBC (Bld) 0 % Normal 0-2 [facility] Comment on above: Performed By: #### T ROPI #### [facility] [address] [place], [facility]83 Extension Service Specialist In Charge: Khadar Tang MD Eosinophils (Bld) [#/Vol] 0.63 10*3/uL High 0.00-0.44 [facility] Comment on above: Performed By: #### T ROPI #### [facility] [address] [place], [place] [address] Extension Service Specialist In Charge: Khadar Tang MD Eosinophils/100 WBC (Bld) 7 % High 1-4 [facility] Comment on above: Performed By: #### T ROPI #### [facility] [address] [place], [place] [phone] Extension Service Specialist In Charge: Khadar Tang MD Erythrocyte distribution width (RBC) [Ratio] 15.9 % High 11.8-14.4 [facility] Comment on above: Performed By: #### T ROPI #### [address] [place], [place] [phone] Extension Service Specialist In Charge: Khadar Tang MD Hematocrit (Bld) [Volume fraction] 24.6 % Low 40.7-50.3 [facility] Comment on above: Performed By: #### T ROPI #### [address] [place], [facility]83 Extension Service Specialist In Charge: Khadar Tang MD Hemoglobin (Bld) [Mass/Vol] 7.6 g/dL Low 13.0-17.0 [facility] Comment on above: Performed By: #### T ROPI #### [address] [place], [place] [address] Extension Service Specialist In Charge: Khadar Tang MD Immature granulocytes/100 WBC (Bld) 1 % High 0 [facility] Comment on above: Performed By: #### T ROPI #### [facility] [address] [place] [address] Dr. [place], [facility]83 Extension Service Specialist In Charge: Khadar Tang MD Lymphocytes (Bld) [#/Vol] 1.63 10*3/uL Normal 1.10-3.70 [facility] Comment on above: Performed By: #### T ROPI #### [address] [place], [place] [phone] Extension Service Specialist In Charge: Khadar Tang MD Lymphocytes/100 WBC (Bld) 19 % Low 24-43 [facility] Comment on above: Performed By: #### T ROPI #### [facility] [address] [place], [facility]83 Extension Service Specialist In Charge: Khadar Tang MD MCH (RBC) [Entitic mass] 23.7 pg Low 25.2-33.5 [facility] Comment on above: Performed By: #### T ROPI #### [address] [place], [facility]83 Extension Service Specialist In Charge: Khadar Tang MD MCHC (RBC) [Mass/Vol] 30.9 g/dL Normal 28.4-34.8 [facility] Comment on above: Performed By: #### T ROPI #### [address] [place], [facility]83 Extension Service Specialist In Charge: Khadar Tang MD MCV (RBC) [Entitic vol] 76.6 fL Low 82.6-102.9 [facility] Comment on above: Performed By: #### T ROPI #### [address] [place], [facility]83 Extension Service Specialist In Charge: Khadar Tang MD Monocytes (Bld) [#/Vol] 0.76 10*3/uL Normal 0.10-1.20 [facility] Comment on above: Performed By: #### T ROPI #### [address] [place], [facility]83 Extension Service Specialist In Charge: Khadar Tang MD Monocytes/100 WBC (Bld) 9 % Normal 3-12 [facility] Comment on above: Performed By: #### T ROPI #### [facility] [address] [place] [address] Dr. [place], [facility]83 Extension Service Specialist In Charge: Khadar Tang MD Neutrophil (Seg) 64 % Normal 36-65 [facility] Comment on above: Performed By: #### T ROPI #### [facility] [address] [place] [address] Dr. [place], [facility]83 Extension Service Specialist In Charge: Khadar Tang MD NRBC Automated 0.0 per 100 WBC Normal 0.0 [facility] Comment on above: Performed By: #### T ROPI #### [facility] [address] [place], [place] [phone] Extension Service Specialist In Charge: Khadar Tang MD Platelet mean volume (Bld) [Entitic vol] 8.9 fL Normal 8.1-13.5 [facility] Comment on above: Performed By: #### T ROPI #### [facility] [address] [place], [place] [phone] Extension Service Specialist In Charge: Khadar Tang MD Platelets (Bld) [#/Vol] 223 10*3/uL Normal 138-453 [facility] Comment on above: Performed By: #### T ROPI #### [address] [place], [facility]83 Extension Service Specialist In Charge: Khadar Tang MD RBC (Bld) [#/Vol] 3.21 10*6/uL Low 4.21-5.77 [facility] Comment on above: Performed By: #### T ROPI #### [address] [place], [place] [phone] Extension Service Specialist In Charge: Khadar Tang MD WBC (Bld) [#/Vol] 8.7 10*3/uL Normal 3.5-11.3 [facility] Comment on above: Performed By: #### T ROPI #### [facility] [address] [place] [address] Dr. [place], [place] [phone] Extension Service Specialist In Charge: Khadar Tang MD Comp Metabolic Pr/rfx MGon 0 06-25-2022 Albumin [Mass/Vol] 2.8 g/dL Low 3.5-5.2 [facility] Comment on above: Performed By: #### T ROPI #### [facility] [address] [place], [place] [address] Extension Service Specialist In Charge: Khadar Tang MD Albumin/Glob Ratio 0.7 Low 1.0-2.5 [facility] Comment on above: Performed By: #### T ROPI #### [facility] [address] [place], [place] [phone] Extension Service Specialist In Charge: Khadar Tang MD Alkaline Phos 75 U/L Normal 40-129 [facility] Comment on above: Performed By: #### T ROPI #### [facility] [address] [place], [place] [phone] Extension Service Specialist In Charge: Khadar Tang MD ALT [Catalytic activity/Vol] 9 U/L Normal 5-41 [facility] Comment on above: Performed By: #### T ROPI #### [facility] [address] [place], [place] [phone] Extension Service Specialist In Charge: Khadar Tang MD Anion gap [Moles/Vol] 6 mmol/L Low 9-17 [facility] Comment on above: Performed By: #### T ROPI #### [facility] [address] [place], [place] [phone] Extension Service Specialist In Charge: Khadar Tang MD AST [Catalytic activity/Vol] 10 U/L Normal <40 [facility] Comment on above: Performed By: #### T ROPI #### [facility] [address] [place], [place] [phone] Extension Service Specialist In Charge: Khadar Tang MD Bilirubin [Mass/Vol] 0.3 mg/dL Normal 0.3-1.2 [facility] Comment on above: Performed By: #### T ROPI #### [facility] [address] [place], [place] [phone] Extension Service Specialist In Charge: Khadar Tang MD BUN/CRE Ratio 20 Normal 9-20 [facility] Comment on above: Performed By: #### T ROPI #### [facility] [address] [place], [place] [phone] Extension Service Specialist In Charge: Khadar Tang MD Calcium [Mass/Vol] 8.7 mg/dL Normal 8.6-10.4 [facility] Comment on above: Performed By: #### T ROPI #### [facility] [address] [place], [place] [phone] Extension Service Specialist In Charge: Khadar Tang MD Chloride [Moles/Vol] 113 mmol/L High 98-107 [facility] Comment on above: Performed By: #### T ROPI #### [facility] [address] [place] [address] Extension Service Specialist In Charge: Khadar Tang MD CO2 [Moles/Vol] 20 mmol/L Normal 20-31 [facility] Comment on above: Performed By: #### T ROPI #### [facility] [address] [place], [place] [id number] Extension Service Specialist In Charge: Khadar Tang MD Creatinine [Mass/Vol] 0.97 mg/dL Normal 0.70-1.20 [facility] Comment on above: Performed By: #### T ROPI #### [facility] [address] [place], [place] [address] Extension Service Specialist In Charge: Khadar Tang MD GFR/1.73 sq M.predicted among non-blacks MDRD (S/P/Bld) [Vol rate/Area] mL/min/{1.73_m2} Normal >60 [facility] Comment on above: Result [...] secretion. Performed By: #### T ROPI #### [facility] [address] [place], [place] [address] Extension Service Specialist In Charge: Khadar Tang MD Glucose [Mass/Vol] 144 mg/dL High 70-99 [facility] Comment on above: Performed By: #### T ROPI #### [facility] [address] [place], [place] [address] Extension Service Specialist In Charge: Khadar Tang MD Potassium [Moles/Vol] 4.5 mmol/L Normal 3.7-5.3 [facility] Comment on above: Performed By: #### T ROPI #### [facility] [address] [place], [place] [phone] Extension Service Specialist In Charge: Khadar Tang MD Protein [Mass/Vol] 6.7 g/dL Normal 6.4-8.3 [facility] Comment on above: Performed By: #### T ROPI #### [facility] [address] [place], [place] [phone] Extension Service Specialist In Charge: Khadar Tang MD Sodium [Moles/Vol] 139 mmol/L Normal 135-144 [facility] Comment on above: Performed By: #### T ROPI #### [facility] [address] [place], [place] [address] Extension Service Specialist In Charge: Khadar Tang MD Urea nitrogen [Mass/Vol] 19 mg/dL Normal 8-23 [facility] Comment on above: Performed By: #### T ROPI #### [facility] [address] [place], [place] [address] Extension Service Specialist In Charge: Khadar Tang MD Comprehensive Metabolic Pane l w/ Reflex to MGon 06-25-2022 Albumin [Mass/Vol] 2.8 g/dL Low 3.5 - 5.2 g/dL [facility] Albumin/Globulin [Mass ratio] 0.7 {ratio} Low 1.0 - 2.5 [facility] ALP [Catalytic activity/Vol] 75 U/L 40 - 129 U/L [facility] ALT [Catalytic activity/Vol] 9 U/L 5 - 41 U/L [facility] Anion gap [Moles/Vol] 6 mmol/L Low 9 - 17 mmol/L [facility] AST [Catalytic activity/Vol] 10 U/L NINF - 40 U/L [facility] Bilirubin [Mass/Vol] 0.3 mg/dL 0.3 - 1 .2 mg/dL [facility] Calcium [Mass/Vol] 8.7 mg/dL 8.6 - 10. 4 mg/dL [facility] Chloride [Moles/Vol] 113 mmol/L High 98 - 10 7 mmol/L [facility] CO2 [Moles/Vol] 20 mmol/L 20 - 31 mmol/L [facility] Creatinine [Mass/Vol] 0.97 mg/dL 0.70 - 1.20 mg/dL [facility] GFR/1.73 sq M.predicted MDRD (S/P/Bld) [Vol rate/Area] - PINF [facility] Comment on above: These results are not [...] 144 mg/dL High 70 - 99 mg/dL [facility] Interpretation and review of laboratory results Abnormal [facility] Potassium [Moles/Vol] 4.5 mmol/L 3.7 - 5.3 mmol/L [facility] Protein [Mass/Vol] 6.7 g/dL 6.4 - 8.3 g/dL [facility] Sodium [Moles/Vol] 139 mmol/L 135 - 144 mmol/L [facility] Urea nitrogen [Mass/Vol] 19 mg/dL 8 - 23 mg/dL [facility] Urea nitrogen/Creatinine (Bld) [Mass ratio] 20 9 - 20 [facility] Cult,Woundon 06-25-2022 Cult,Wound Specimen Description .BUTTOCK Direct Exam FEW NEUTROPHILS MODERATE GRAM POSITIVE COCCI IN PAIRS MODERATE GRAM POSITIVE RODS Culture NORMAL SKIN ROBBIE Report Status FINAL 06/25/2022 [facility] Comment on above: Performed By: #### T ROPI #### [facility] [address] [place] [address] Extension Service Specialist In Charge: Khadar Tang MD EKG Rhythm Stripon 3 [facility] ml [facility] Occult Blood, Fecalon 2022 Occult Blood 1 Negative Normal NEG [facility] Comment on above: Performed By: #### C MPX, CDP #### [facility] [address] [place] [address] [place] [address] Extension Service Specialist In Charge: Khadar Tang MD Specimen 1 Date [facility] Comment on above: Result Comment: Performed By: #### C MPX, CDP #### [facility] [address] [place] [address] [place] [place], [place] [address] Extension Service Specialist In Charge: Khadar Tang MD Specimen 1 Time 1944 [facility] Comment on above: Performed By: #### C MPX, CDP #### [facility] [address] [place] [address] Dr. [place], [place] [phone] Extension Service Specialist In Charge: Khadar Tang MD Surgical Pathologyon 023 Surgical [...] SURGICAL PATHOLOGY CONSULTATION Patient Name: GANGA STINSON [facility] Rec: [id number] Path Number: [id number] [facility] PATHOLOGISTS [facility] ANATOM[facility] PATHOLOG[facility] [address] [place] [address]. [place], [place] [address] Normal [facility] Comment on above: Performed By: #### C RICHX, CDP #### [facility] [address] [place], [place] [address] Extension Service Specialist In Charge: Khadar Tang MD TYPE AND SCREENon 06-25-2022 ABO/Rh Negative [facility] Arm Band Number [id number] [facility] Blood Bank Blood Product Expiration Date [id number] [facility] Blood Bank ISBT Product Blood Type 9500 [facility] Blood Bank Unit Type and Rh Negative [facility] Blood product type Nom (BPU) Leukocyte Reduced Red Cell [facility] Blood product unit ID (Dose) [#] [id number] [facility] Crossmatch Result COMPATIBLE [facility] Dispense Status TRANSFUSED [facility] Expiration Date 06/27/2022,2359 [facility] Product Code Blood Bank [id number] [facility] Transfusion Status OK TO TRANSFUSE B ON [facility] Unit Divison 0 [facility] Unit Issue Date/Time [id number] [facility] APTTon 06-24-2022 aPTT Coag (Bld) [Time] 35.6 s High 26.8-34.8 [facility] Comment on above: Result Comment: IV Heparin Therapy Range: 62.0-94.0 Performed By: #### C RICHX, CDP #### [facility] [address] [place], [place] [address] Extension Service Specialist In Charge: Khadar Tang MD B12/Folate Panelon Cobalamin (Vitamin B12) [Mass/Vol] 446 pg/mL Normal 232-1245 [facility] Comment on above: Performed By: #### C MPX, CDP #### [facility] [address] [place], [place] [address] Extension Service Specialist In Charge: Khadar Tang MD Folic Acid 8.2 ng/mL Normal >4.8 [facility] Comment on above: Performed By: #### C RICHX, CDP #### [facility] [address] [place], [place] [address] Extension Service Specialist In Charge: Khadar Tang MD CBC auto differentialon 05-28 Absolute Eos # 0.46 High [place] [facility] Absolute Immature Granulocyte 0.07 [facility] Absolute Lymph # 1.52 [facility] Absolute Otoe # 0.53 [facility] Basophils (Bld) [#/Vol] 0.00 10*3/uL [facility] Hematocrit (Bld) [Volume fraction] 21.7 % Low 40.7 - 50.3 % [facility] Hemoglobin (Bld) [Mass/Vol] 6.6 g/dL Critically low 13.0 - 17.0 g/dL [facility] Interpretation and review of laboratory results Abnormal [facility] MCH (RBC) [Entitic mass] 23.4 pg Low 25.2 - 33.5 pg [facility] MCHC (RBC) [Mass/Vol] 30.4 g/dL 28.4 - 34.8 g/dL [facility] MCV (RBC) [Entitic vol] 77.0 fL Low 82.6 - 102.9 fL [facility] Morphology Álvaro (Bld) [Interp] HYPOCHROMIA PRESENT [facility] NRBC Automated 0.0 0.0 per 100 WBC [facility] Platelet distribution width (Bld) [Ratio] 16.2 % High 11.8 - 14.4 % [facility] Platelet mean volume (Bld) [Entitic vol] 8.9 fL 8.1 - 13.5 fL [facility] Platelets (Bld) [#/Vol] 208 10*3/uL [facility] RBC (Bld) [#/Vol] 2.82 10*6/uL Low 4.21 - 5.77 m/uL [facility] Segmented neutrophils/100 WBC (Bld) 61 % 36 - 65 % [facility] Segs Absolute 4.02 [facility] WBC (Bld) [#/Vol] 6.6 10*3/uL [facility] CBC with Diffon 06-24-2022 Abs. Basophil 0.00 k/uL Normal 0.0-0.2 [facility] Comment on above: Performed By: #### C MPX, CDP #### [facility] [address] [place] [address] Extension Service Specialist In Charge: Khadar Tang MD Abs.Imm.Granulocyte 0.07 k/uL Normal 0.00-0.30 [facility] Comment on above: Performed By: #### C MPX, CDP #### [facility] [address] [place] [address] Dr. [place], [place] [address] Extension Service Specialist In Charge: Khadar Tang MD Abs.Neutrophil (Seg) 4.02 k/uL Normal 1.50-8.10 [facility] Comment on above: Performed By: #### C MPX, CDP #### [address] [place] [address] Extension Service Specialist In Charge: Khadar Tang MD Eosinophils (Bld) [#/Vol] 0.46 10*3/uL High 0.00-0.44 [facility] Comment on above: Performed By: #### C MPX, CDP #### [facility] [address] [place] [address] Extension Service Specialist In Charge: Khadar Tang MD Lymphocytes (Bld) [#/Vol] 1.52 10*3/uL Normal 1.10-3.70 [facility] Comment on above: Performed By: #### C MPX, CDP #### [facility] [address] [place], [place] [phone] Extension Service Specialist In Charge: Khadar Tang MD Monocytes (Bld) [#/Vol] 0.53 10*3/uL Normal 0.10-1.20 [facility] Comment on above: Performed By: #### C MPX, CDP #### [facility] [address] [place], [place] 6963083 Extension Service Specialist In Charge: Khadar Tang MD Morphology Álvaro (Bld) [Interp] HYPOCHROMIA Normal [facility] Comment on above: Result Comment: PRES ENT Performed By: #### C MPX, CDP #### [facility] [address] [place], [place] [phone] Extension Service Specialist In Charge: Khadar Tang MD Neutrophil (Seg) 61 % Normal 36-65 [facility] Comment on above: Performed By: #### C MPX, CDP #### [address] [place], [place] 0434483 Extension Service Specialist In Charge: Khadar Tang MD Erythrocyte distribution width (RBC) [Ratio] 16.2 % High 11.8-14.4 [facility] Comment on above: Performed By: #### C MPX, CDP #### [address] [place], [place] 7206383 Extension Service Specialist In Charge: Khadar Tang MD Hematocrit (Bld) [Volume fraction] 21.7 % Low 40.7-50.3 [facility] Comment on above: Performed By: #### C MPX, CDP #### [address] [place], [place] 2804083 Extension Service Specialist In Charge: Khadar Tang MD Hemoglobin (Bld) [Mass/Vol] 6.6 g/dL Critically low 13.0-17.0 [facility] Comment on above: Performed By: #### C MPX, CDP #### [address] [place], [place] 8034083 Extension Service Specialist In Charge: Khadar Tang MD MCH (RBC) [Entitic mass] 23.4 pg Low 25.2-33.5 [facility] Comment on above: Performed By: #### C MPX, CDP #### [facility] [address] [place], [facility]83 Extension Service Specialist In Charge: Khadar Tang MD MCHC (RBC) [Mass/Vol] 30.4 g/dL Normal 28.4-34.8 [facility] Comment on above: Performed By: #### C MPX, CDP #### [address] [place], [facility]83 Extension Service Specialist In Charge: Khadar Tang MD MCV (RBC) [Entitic vol] 77.0 fL Low 82.6-102.9 [facility] Comment on above: Performed By: #### C MPX, CDP #### [address] [place] [phone] Extension Service Specialist In Charge: Khadar Tang MD NRBC Automated 0.0 per 100 WBC Normal 0.0 [facility] Comment on above: Performed By: #### C MPX, CDP #### [address] [place], [place] [phone] Extension Service Specialist In Charge: Khadar Tang MD Platelet mean volume (Bld) [Entitic vol] 8.9 fL Normal 8.1-13.5 [facility] Comment on above: Performed By: #### C MPX, CDP #### [address] [place], [facility]83 Extension Service Specialist In Charge: Khadar Tang MD Platelets (Bld) [#/Vol] 208 10*3/uL Normal 138-453 [facility] Comment on above: Performed By: #### C MPX, CDP #### [address] [place] [address] Extension Service Specialist In Charge: Khadar Tang MD RBC (Bld) [#/Vol] 2.82 10*6/uL Low 4.21-5.77 [facility] Comment on above: Performed By: #### C MPX, CDP #### [address] [place], [place] [phone] Extension Service Specialist In Charge: Khadar Tang MD WBC (Bld) [#/Vol] 6.6 10*3/uL Normal 3.5-11.3 [facility] Comment on above: Performed By: #### C MPX, CDP #### [address] [place], [place] 8925783 Extension Service Specialist In Charge: Khadar Tang MD Basophils/100 WBC (Bld) 0 % Normal 0-2 [facility] Comment on above: Performed By: #### C MPX, CDP #### [address] [place], [place] 0176783 Extension Service Specialist In Charge: Khadar Tang MD Eosinophils/100 WBC (Bld) 7 % High 1-4 [facility] Comment on above: Performed By: #### C MPX, CDP #### [address] [place], [place] 3109483 Extension Service Specialist In Charge: Khadar Tang MD Immature granulocytes/100 WBC (Bld) 1 % High 0 [facility] Comment on above: Performed By: #### C MPX, CDP #### [address] [place], [place] 5879683 Extension Service Specialist In Charge: Khadar Tang MD Lymphocytes/100 WBC (Bld) 23 % Low 24-43 [facility] Comment on above: Performed By: #### C MPX, CDP #### [address] [place] [address] Extension Service Specialist In Charge: Khadar Tang MD Monocytes/100 WBC (Bld) 8 % Normal 3-12 [facility] Comment on above: Performed By: #### C MPX, CDP #### [address] [place] [address] Extension Service Specialist In Charge: Khadar Tagn MD Comp Metabolic Pr/rfx MGon 0 - Albumin [Mass/Vol] 2.4 g/dL Low 3.5-5.2 [facility] Comment on above: Performed By: #### C MPX, CDP #### [facility] [address] [place], [place] [address] Extension Service Specialist In Charge: Khadar Tang MD Albumin/Glob Ratio 0.6 Low 1.0-2.5 [facility] Comment on above: Performed By: #### C MPX, CDP #### [facility] [address] [place], [place] 6472983 Extension Service Specialist In Charge: Khadar Tang MD Alkaline Phos 75 U/L Normal 40-129 [facility] Comment on above: Performed By: #### C MPX, CDP #### [facility] [address] [place], [place] 8765083 Extension Service Specialist In Charge: Khadar Tang MD ALT [Catalytic activity/Vol] 9 U/L Normal 5-41 [facility] Comment on above: Performed By: #### C MPX, CDP #### [facility] [address] [place] [address] Dr. [place], [place] 7324583 Extension Service Specialist In Charge: Khadar Tang MD Anion gap [Moles/Vol] 7 mmol/L Low 9-17 [facility] Comment on above: Performed By: #### C MPX, CDP #### [facility] [address] [place], [place] [phone] Extension Service Specialist In Charge: Khadar Tang MD AST [Catalytic activity/Vol] 11 U/L Normal <40 [facility] Comment on above: Performed By: #### C MPX, CDP #### [facility] [address] [place], [place] [phone] Extension Service Specialist In Charge: Khadar Tang MD Bilirubin [Mass/Vol] mg/dL Low 0.3-1.2 [facility] Comment on above: Performed By: #### C MPX, CDP #### [facility] [address] [place], [place] [address] Extension Service Specialist In Charge: Khadar Tang MD BUN/CRE Ratio 23 High 9-20 [facility] Comment on above: Performed By: #### C MPX, CDP #### [facility] [address] [place], [place] 5195083 Extension Service Specialist In Charge: Khadar Tang MD Calcium [Mass/Vol] 8.5 mg/dL Low 8.6-10.4 [facility] Comment on above: Performed By: #### C MPX, CDP #### [facility] [address] [place], [place] 0897883 Extension Service Specialist In Charge: Khadar Tang MD Chloride [Moles/Vol] 115 mmol/L High 98-107 [facility] Comment on above: Performed By: #### C MPX, CDP #### [facility] [address] [place], [place] [phone] Extension Service Specialist In Charge: Khadar Tang MD CO2 [Moles/Vol] 18 mmol/L Low 20-31 [facility] Comment on above: Performed By: #### C MPX, CDP #### [facility] [address] [place], [place] [address] Extension Service Specialist In Charge: Khadar Tang MD Creatinine [Mass/Vol] 1.11 mg/dL Normal 0.70-1.20 [facility] Comment on above: Performed By: #### C MPX, CDP #### [facility] [address] [place], [place] [address] Extension Service Specialist In Charge: Khadar Tang MD GFR/1.73 sq M.predicted among non-blacks MDRD (S/P/Bld) [Vol rate/Area] mL/min/{1.73_m2} Normal >60 [facility] Comment on above: Result [...] Performed By: #### C MPX, CDP #### [facility] [address] [place], [place] [address] Extension Service Specialist In Charge: Khadar Tang MD Glucose [Mass/Vol] 137 mg/dL High 70-99 [facility] Comment on above: Performed By: #### C MPX, CDP #### [facility] [address] [place], [place] [address] Extension Service Specialist In Charge: Khadar Tang MD Potassium [Moles/Vol] 4.9 mmol/L Normal 3.7-5.3 [facility] Comment on above: Performed By: #### C MPX, CDP #### [facility] [address] [place] [address] Dr. [place], [place] [phone] Extension Service Specialist In Charge: Khadar Tang MD Protein [Mass/Vol] 6.3 g/dL Low 6.4-8.3 [facility] Comment on above: Performed By: #### C MPX, CDP #### [facility] [address] [place] [address] Dr. [place], [place] [phone] Extension Service Specialist In Charge: Khadar Tang MD Sodium [Moles/Vol] 140 mmol/L Normal 135-144 [facility] Comment on above: Performed By: #### C MPX, CDP #### [facility] [address] [place], [place] [address] Extension Service Specialist In Charge: Khadar Tang MD Urea nitrogen [Mass/Vol] 26 mg/dL High 8-23 [facility] Comment on above: Performed By: #### C MPX, CDP #### [facility] [address] [place] [address] Dr. [place], [place] [phone] Extension Service Specialist In Charge: Khadar Tang MD Comprehensive Metabolic Pane l w/ Reflex to MGon 06-24-2022 Albumin [Mass/Vol] 2.4 g/dL Low 3.5 - 5.2 g/dL [facility] Albumin/Globulin [Mass ratio] 0.6 {ratio} Low 1.0 - 2.5 [facility] ALP [Catalytic activity/Vol] 75 U/L 40 - 129 U/L [facility] ALT [Catalytic activity/Vol] 9 U/L 5 - 41 U/L [facility] Anion gap [Moles/Vol] 7 mmol/L Low 9 - 17 mmol/L [facility] AST [Catalytic activity/Vol] 11 U/L NINF - 40 U/L [facility] Bilirubin [Mass/Vol] mg/dL Low 0.3 - 1 .2 mg/dL [facility] [employer] Calcium [Mass/Vol] 8.5 mg/dL Low 8.6 - 10. 4 mg/dL [facility] Chloride [Moles/Vol] 115 mmol/L High 98 - 10 7 mmol/L [facility] CO2 [Moles/Vol] 18 mmol/L Low 20 - 31 mmol/L [facility] Creatinine [Mass/Vol] 1.11 mg/dL 0.70 - 1.20 mg/dL [facility] GFR/1.73 sq M.predicted MDRD (S/P/Bld) [Vol rate/Area] - PINF [facility] Comment on above: These results are not [...] 137 mg/dL High 70 - 99 mg/dL [facility] Interpretation and review of laboratory results Abnormal [facility] Potassium [Moles/Vol] 4.9 mmol/L 3.7 - 5.3 mmol/L [facility] Protein [Mass/Vol] 6.3 g/dL Low 6.4 - 8.3 g/dL [employer] Sodium [Moles/Vol] 140 mmol/L 135 - 144 mmol/L [employer] Urea nitrogen [Mass/Vol] 26 mg/dL High 8 - 23 mg/dL [employer] Urea nitrogen/Creatinine (Bld) [Mass ratio] 23 High 9 - 20 [employer] [facility] Culture, Wound Aerobic Onlyo n 06-24-2022 Interpretation and review of laboratory results Abnormal [facility] Microorganism identified Cx Nom (Unsp spec) NORMAL SKIN ROBBIE [employer] [facility] Microorganism or agent identified Nom (Unsp spec) FEW NEUTROPHILS Abnormal [facility] Specimen Description .BUTTOCK [employer] EKG 12 Leadon 06-24-2022 Atrial Rate 64 BPM [employer] Work Phone: P [place] 51 degrees [employer] Work Phone: P-R Interval 174 ms [employer] Work Phone: Q-T Interval 394 ms [employer] Work Phone: QRS Duration 94 ms [employer] Work Phone: QTc Calculation (Bazett) 406 ms [employer] Work Phone: R [place] 20 degrees [employer] Work Phone: T [place] 22 degrees [employer] Work Phone: Ventricular Rate 64 BPM [employer] [facility] [employer] Work Phone: Normal sinus rhythm Inferior infarct , age undetermined Abnormal ECG When compared with ECG of 22-JUN-2022 17:28, Minimal criteria for Inferior infarct is now Present Confirmed by Michelle Noe MD ([id number]) on 06/24/2022 10:31:37 PM [facility] RADIOLOG[facility] Michelle Noe MD - 06/24/2022 Normal sinus rhythm Inferior infarct , age undetermined Abnormal ECG When compared with ECG of 22-JUN-2022 17:28, Minimal criteria for Inferior infarct is now Present Confirmed by Michelle Noe MD ([id number]) on 06/24/2022 10:31:37 PM [facility] Work Phone: [facility] [employer] Work Phone: EKG Rhythm Stripon 3 [facility] [facility] Echocardiogram complete 2D w ith doppler with coloron 06-24-2022 Left ventricular Ejection fraction 60 [facility] Work Phone: LVEF MODALITY ECHO [facility] [employer] Work Phone: [facility] Transthoracic Echocardiography Report (TTE) Patient Name ALLOWAY Date of Study 06/24/2022 GANGA Evans Date of 1960 Gender Male Age 61 year(s) Race Room Number 0334 Height: 71 inch, 180.34 cm Corporate ID [id number] Weight: 252 pounds, 114.3 kg # Patient Acct [id number] BSA: 2.33 m^2 BMI: 35.15 kg/m^2 # MR # [id number] Cost Accounting Analyst Jeanette Clarke Interpreting Physician Michelle Noe Fellow Referring Nurse Shelly Mondragon, Practitioner [employer] Interpreting Referring Physician Fellow Type of Study TTE procedure:2D Echocardiogram, M-Mode, Doppler, Color Doppler. Procedure Date Date: 06/24/2022 Start: 09:47 AM Study Location: [facility] Indications:Abnormal ECG. History / Tech. [...] MD / Result, Unknown Provider - 06/24/2022 [facility] Transthoracic Echocardiography Report (TTE) Patient Name ALLOWAY Date of Study 06/24/2022 GANGA Evans Date of 1960 Gender Male Age 61 year(s) Race Room Number 0334 Height: 71 inch, 180.34 cm Corporate ID [id number] Weight: 252 pounds, 114.3 kg # Patient Acct [id number] BSA: 2.33 m^2 BMI: 35.15 kg/m^2 # MR # [id number] Cost Accounting Analyst Jeanette Clarke Interpreting Physician Michelle Noe Fellow Referring Nurse Shelly Mondragon, Practitioner DOLLY Interpreting Referring Physician Fellow Type of Study TTE procedure:2D Echocardiogram, M-Mode, Doppler, Color Doppler. Procedure Date Date: 06/24/2022 Start: 09:47 AM Study Location: [facility] Indications:Abnormal ECG. History / Tech. [...] Wall E' velocity:0.13 m/s Lateral Wall E/E':9.8 [facility] Work Phone: [facility] Work Phone: Glucose, Whole Bloodon 06-24 Glucose [Mass/Vol] 114 mg/dL High 74 - 100 mg/dL [facility] Interpretation and review of laboratory results Abnormal [facility] Hemoglobin and Hematocriton 06-24-2022 Hematocrit (Bld) [Volume fraction] 25.1 % Low 40.7 - 50.3 % [facility] Hemoglobin (Bld) [Mass/Vol] 7.8 g/dL Low 13.0 - 17.0 g/dL [facility] Interpretation and review of laboratory results Abnormal [facility] Hgb/Hcton 06-24-2022 Hematocrit (Bld) [Volume fraction] 25.1 % Low 40.7-50.3 [facility] Comment on above: Performed By: #### C MPX, CDP #### [facility] [address] [place] [address] [place] [place] [address] Extension Service Specialist In Charge: Khadar Tang MD Hemoglobin (Bld) [Mass/Vol] 7.8 g/dL Low 13.0-17.0 [facility] Comment on above: Performed By: #### C MPX, CDP #### [facility] [address] [place] [phone] Extension Service Specialist In Charge: Khadar Tang MD Iron Binding Cap.on 06-25-19 23 % Fe Saturation 19 % Low 20-55 [facility] Comment on above: Performed By: #### C MPX, CDP #### [facility] [address] [place] [address] Extension Service Specialist In Charge: Khadar Tang MD Iron [Mass/Vol] 33 ug/dL Low 59-158 [facility] Comment on above: Performed By: #### C MPX, CDP #### [facility] [address] [place], [place] [address] Extension Service Specialist In Charge: Khadar Tang MD Total Fe Binding Cap 175 ug/dL Low 250-450 [facility] Comment on above: Performed By: #### C MPX, CDP #### [facility] [address] [place], [place] [address] Extension Service Specialist In Charge: Khadar Tang MD Unbound Fe Bind Cap 142 ug/dL Normal 112-347 [facility] Comment on above: Performed By: #### C MPX, CDP #### [facility] [address] [place], [place] [address] Extension Service Specialist In Charge: Khadar Tang MD Iron and TIBCon 06-24-2022 Interpretation and review of laboratory results Abnormal [facility] Iron [Mass/Vol] 33 ug/dL Low 59 - 158 ug/dL [facility] Iron binding capacity [Mass/Vol] 175 ug/dL Low 250 - 450 ug/dL [facility] Iron Saturation 19 % Low 20 - 55 % [facility] UIBC 142 ug/dL 112 - 347 ug/dL [facility] Laboratory - Microbiology an d Antimicrobial susceptibilityon 06-24-2022 Microorganism or agent identified Nom (Unsp spec) Positive Abnormal [facility] Lipid Panelon 06-24-2022 Cholesterol [Mass/Vol] 147 mg/dL NINF - 200 mg/dL [facility] Comment on above: Cholesterol Guidelines: <200 Desirable 200-240 Borderline >240 Undesirable Cholesterol in HDL [Mass/Vol] 28 mg/dL Low 40 - PINF mg/dL [facility] Comment on above: HDL Guidelines: <40 Undesirable 40-59 Borderline >59 Desirable Cholesterol in LDL [Mass/Vol] 98 mg/dL 0 - 130 mg/dL [facility] Comment on above: LDL Guidelines: <100 Desirable 100-129 Near to/above Desirable 130-159 Borderline >159 Undesirable Direct (measured) LDL and calculated LDL are not interchangeable tests. Cholesterol.total/Cho lesterol in HDL [Mass ratio] 5.3 {ratio} High NINF - 5 [facility] Interpretation and review of laboratory results Abnormal [facility] Triglyceride [Mass/Vol] 107 mg/dL NINF - 150 mg/dL [facility] Comment on above: Triglyceride Guidelines: <150 Desirable 150-199 Borderline 200-499 High >499 Very high Based on AHA Guidelines for fasting triglyceride, December 2011. [facility] Lipid Profileon 06-24-2022 Cholesterol [Mass/Vol] 147 mg/dL Normal <200 [facility] Comment on above: Result Comment: Cholesterol Guidelines: <200 Desirable 200-240 Borderline >240 Undesirable Performed By: #### T ROPI #### [facility] [address] [place] [address] Extension Service Specialist In Charge: Khadar Tang MD Cholesterol in HDL [Mass/Vol] 28 mg/dL Low >40 [facility] Comment on above: Result Comment: HDL Guidelines: <40 Undesirable 40-59 Borderline >59 Desirable Performed By: #### T ROPI #### [facility] [address] [place], [place] [address] Extension Service Specialist In Charge: Khadar Tang MD Cholesterol in LDL [Mass/Vol] 98 mg/dL Normal 0-130 [facility] Comment on above: Result Comment: LDL Guidelines: <100 Desirable 100-129 Near to/above Desirable 130-159 Borderline >159 Undesirable Direct (measured) LDL and calculated LDL are not interchangeable tests. Performed By: #### T ROPI #### [facility] [address] [place], [place] [address] Extension Service Specialist In Charge: Khadar Tang MD Cholesterol.total/Cho lesterol in HDL [Mass ratio] 5.3 {ratio} High <5 [facility] Comment on above: Performed By: #### T ROPI #### [facility] [address] [place], [place] [address] Extension Service Specialist In Charge: Khadar Tang MD Triglyceride [Mass/Vol] 107 mg/dL Normal <150 [facility] Comment on above: Result Comment: Triglyceride Guidelines: <150 Desirable 150-199 Borderline 200-499 High >499 Very high Based on AHA Guidelines for fasting triglyceride, December 2011. Performed By: #### T CINDYI #### [facility] [address] [place], [place] [address] Extension Service Specialist In Charge: Khadar Tang MD PTon 06-24-2022 INR Coag (PPP) [Relative time] 1.1 {INR} Normal [facility] Comment on above: Result Comment: Therapeutic Range: Moderate Anticoagulant Intensity: INR = 2.0-3.0 High Anticoagulant Intensity: INR = 2.5-3.5 Performed By: #### C MPX, CDP #### [facility] [address] [place], [place] [phone] Extension Service Specialist In Charge: Khadar Tang MD PT Coag (PPP) [Time] 14.8 s Normal 11.9-14.8 [facility] Comment on above: Performed By: #### C MPX, CDP #### [facility] [address] [place], [place] [phone] Extension Service Specialist In Charge: Khadar Tang MD PTTon 06-24-2022 aPTT Coag (Bld) [Time] 35.6 s High [facility] Comment on above: IV Heparin Therapy Range: 62.0-94.0 Interpretation and review of laboratory results Abnormal [facility] Protime-INRon 06-24-2022 INR Coag (PPP) [Relative time] 1.1 {INR} [facility] Comment on above: Therapeutic Range: Moderate Anticoagulant Intensity: INR = 2.0-3.0 High Anticoagulant Intensity: INR = 2.5-3.5 PT Coag (PPP) [Time] 14.8 s [facility] Troponinon 06-24-2022 Troponin, High Sens 57 ng/L Critically high 0-22 [facility] Comment on above: Result Comment: High Sensitivity Troponin values cannot be compared with other Troponin methodologies. Performed By: #### C MPX, CDP #### [facility] [address] [place] [phone] Extension Service Specialist In Charge: Khadar Tang MD Interpretation and review of laboratory results Abnormal [facility] Troponin I.cardiac DL <= 0.01 ng/mL [Mass/Vol] 57 ng/L Critically high 0 - 22 ng/L [facility] Comment on above: High Sensitivity Tro ponin values cannot be compared with other Troponin methodologies. [facility] Troponin, High Sens 58 ng/L Critically high 0-22 [facility] Comment on above: Result Comment: High Sensitivity Troponin values cannot be compared with other Troponin methodologies. Performed By: #### T ROPI #### [facility] [address] [place] [phone] Extension Service Specialist In Charge: Khadar Tang MD Interpretation and review of laboratory results Abnormal [facility] Troponin I.cardiac DL <= 0.01 ng/mL [Mass/Vol] 58 ng/L Critically high 0 - 22 ng/L [facility] Comment on above: High Sensitivity Tro ponin values cannot be compared with other Troponin methodologies. [facility] Troponin, High Sens 59 ng/L Critically high 0-22 [facility] Comment on above: Result Comment: High Sensitivity Troponin values cannot be compared with other Troponin methodologies. Performed By: #### C MPX, CDP #### [facility] [address] [place] [phone] Extension Service Specialist In Charge: Khadar Tang MD Interpretation and review of laboratory results Abnormal [facility] Troponin I.cardiac DL <= 0.01 ng/mL [Mass/Vol] 59 ng/L Critically high 0 - 22 ng/L [facility] Comment on above: High Sensitivity Tro ponin values cannot be compared with other Troponin methodologies. [facility] Type + Screenon 06-24-2022 Type + Screen Sample Expiration 06/27/2022,2359 Arm Band Number [id number] ABO/Rh(D) A NEGATIVE Antibody Screen NEGATIVE Unit Number [id number] Blood Component Type Leukocyte Reduced Red Cell Unit Division 00 Status of Unit TRANSFUSED Transfusion Status OK TO TRANSFUSE Crossmatch Result COMPATIBLE Normal [facility] Comment on above: Performed By: #### C MPX, CDP #### [facility] [address] [place], [place] [address] Extension Service Specialist In Charge: Khadar Tang MD Vitamin B12 & Folateon 06-24 Cobalamin (Vitamin B12) [Mass/Vol] 446 pg/mL 232 - 1245 pg/mL [facility] Folate [Mass/Vol] 8.2 ng/mL 4.8 - PINF ng/mL [facility]ALTH [facility] CBC auto differentialon 05-28 Absolute Eos # 0.65 High [facility] Absolute Immature Granulocyte 0[facility]06 [facility] Absolute Lymph [facility] 1.94 [facility] Absolute Otoe # 0.72 [facility] Basophils (Bld) [#/Vol] 0.04 10*3/uL [facility] Basophils/100 WBC (Bld) 0 % 0 - 2 % [facility] Eosinophils/100 WBC (Bld) 7 % High 1 - 4 % [facility] Hematocrit (Bld) [Volume fraction] 25.0 % Low 40.7 - 50.3 % [facility] Hemoglobin (Bld) [Mass/Vol] 7.5 g/dL Low 13.0 - 17.0 g/dL [facility] Immature granulocytes/100 WBC (Bld) 1 % High 0 [facility] Interpretation and review of laboratory results Abnormal [facility] Lymphocytes/100 WBC (Bld) 22 % Low 24 - 43 % [facility] MCH (RBC) [Entitic mass] 23.3 pg Low 25.2 - 33.5 pg [facility] MCHC (RBC) [Mass/Vol] 30.0 g/dL 28.4 - 34.8 g/dL [facility] MCV (RBC) [Entitic vol] 77.6 fL Low 82.6 - 102.9 fL [facility] Monocytes/100 WBC (Bld) 8 % 3 - 12 % [facility] NRBC Automated 0.0 0.0 per 100 WBC [facility] Platelet distribution width (Bld) [Ratio] 16.4 % High 11.8 - 14.4 % [facility] Platelet mean volume (Bld) [Entitic vol] 8.7 fL 8.1 - 13.5 fL [facility] Platelets (Bld) [#/Vol] 263 10*3/uL [facility] RBC (Bld) [#/Vol] 3.22 10*6/uL Low 4.21 - 5.77 m/uL [facility] Segmented neutrophils/100 WBC (Bld) 62 % 36 - 65 % [facility] Segs Absolute 5.55 [facility] WBC (Bld) [#/Vol] 9.0 10*3/uL [facility] CBC with Diffon 06-23-2022 Abs. Basophil 0.04 k/uL Normal 0.00-0.20 [facility] Comment on above: Performed By: #### C MPX, CDP #### [facility] [address] [place] [address] [place] [place], [place] [address] Extension Service Specialist In Charge: Khadar Tang MD Abs.Imm.Granulocyte 0.06 k/uL Normal 0.00-0.30 [facility] Comment on above: Performed By: #### C MPX, CDP #### [address] [place], [place] [phone] Extension Service Specialist In Charge: Khadar Tang MD Abs.Neutrophil (Seg) 5.55 k/uL Normal 1.50-8.10 [facility] Comment on above: Performed By: #### C MPX, CDP #### [facility] [address] [place] [address] Dr. [place], [place] [phone] Extension Service Specialist In Charge: Khadar Tang MD Basophils/100 WBC (Bld) 0 % Normal 0-2 [facility] Comment on above: Performed By: #### C MPX, CDP #### [facility] [address] [place] [address] [place] [address] Extension Service Specialist In Charge: Khadar Tang MD Eosinophils (Bld) [#/Vol] 0.65 10*3/uL High 0.00-0.44 [facility] Comment on above: Performed By: #### C MPX, CDP #### [address] [place] [address] Extension Service Specialist In Charge: Khadar Tang MD Eosinophils/100 WBC (Bld) 7 % High 1-4 [facility] Comment on above: Performed By: #### C MPX, CDP #### [address] [place], [place] [phone] Extension Service Specialist In Charge: Khadar Tang MD Erythrocyte distribution width (RBC) [Ratio] 16.4 % High 11.8-14.4 [facility] Comment on above: Performed By: #### C MPX, CDP #### [address] [place] [address] Extension Service Specialist In Charge: Khadar Tang MD Hematocrit (Bld) [Volume fraction] 25.0 % Low 40.7-50.3 [facility] Comment on above: Performed By: #### C MPX, CDP #### [address] [place], [place] 0359383 Extension Service Specialist In Charge: Khadar Tang MD Hemoglobin (Bld) [Mass/Vol] 7.5 g/dL Low 13.0-17.0 [facility] Comment on above: Performed By: #### C MPX, CDP #### [facility] [address] [place] [address] Dr. [place], [place] [phone] Extension Service Specialist In Charge: Khadar Tang MD Immature granulocytes/100 WBC (Bld) 1 % High 0 [facility] Comment on above: Performed By: #### C MPX, CDP #### [address] [place] [address] Extension Service Specialist In Charge: Khadar Tang MD Lymphocytes (Bld) [#/Vol] 1.94 10*3/uL Normal 1.10-3.70 [facility] Comment on above: Performed By: #### C MPX, CDP #### [facility] [address] [place], [place] [phone] Extension Service Specialist In Charge: Khadar Tang MD Lymphocytes/100 WBC (Bld) 22 % Low 24-43 [facility] Comment on above: Performed By: #### C MPX, CDP #### [facility] [address] [place], [facility]83 Extension Service Specialist In Charge: Khadar Tang MD MCH (RBC) [Entitic mass] 23.3 pg Low 25.2-33.5 [facility] Comment on above: Performed By: #### C MPX, CDP #### [facility] [address] [place], [facility]83 Extension Service Specialist In Charge: Khadar Tang MD MCHC (RBC) [Mass/Vol] 30.0 g/dL Normal 28.4-34.8 [facility] Comment on above: Performed By: #### C MPX, CDP #### [address] [place], [place] 6804783 Extension Service Specialist In Charge: Khadar Tang MD MCV (RBC) [Entitic vol] 77.6 fL Low 82.6-102.9 [facility] Comment on above: Performed By: #### C MPX, CDP #### [facility] [address] [place] [address] Dr. [place], [facility]83 Extension Service Specialist In Charge: Khadar Tang MD Monocytes (Bld) [#/Vol] 0.72 10*3/uL Normal 0.10-1.20 [facility] Comment on above: Performed By: #### C MPX, CDP #### [facility] [address] [place], [place] [address] Extension Service Specialist In Charge: Khadar Tang MD Monocytes/100 WBC (Bld) 8 % Normal 3-12 [facility] Comment on above: Performed By: #### C MPX, CDP #### [facility] [address] [place], [place] [phone] Extension Service Specialist In Charge: Khadar Tang MD Neutrophil (Seg) 62 % Normal 36-65 [facility] Comment on above: Performed By: #### C MPX, CDP #### [facility] [address] [place], [place] [phone] Extension Service Specialist In Charge: Khadar Tang MD NRBC Automated 0.0 per 100 WBC Normal 0.0 [facility] Comment on above: Performed By: #### C MPX, CDP #### [facility] [address] [place], [place] [phone] Extension Service Specialist In Charge: Khadar Tang MD Platelet mean volume (Bld) [Entitic vol] 8.7 fL Normal 8.1-13.5 [facility] Comment on above: Performed By: #### C MPX, CDP #### [facility] [address] [place], [place] [phone] Extension Service Specialist In Charge: Khadar Tang MD Platelets (Bld) [#/Vol] 263 10*3/uL Normal 138-453 [facility] Comment on above: Performed By: #### C MPX, CDP #### [address] [place], [place] [phone] Extension Service Specialist In Charge: Khadar Tang MD RBC (Bld) [#/Vol] 3.22 10*6/uL Low 4.21-5.77 [facility] Comment on above: Performed By: #### C MPX, CDP #### [address] [place], [place] [phone] Extension Service Specialist In Charge: Khadar Tang MD WBC (Bld) [#/Vol] 9.0 10*3/uL Normal 3.5-11.3 [facility] Comment on above: Performed By: #### C MPX, CDP #### [facility] [address] [place], [place] [phone] Extension Service Specialist In Charge: Khadar Tang MD Comp Metabolic Pr/rfx MGon 0 06-23-2022 Albumin [Mass/Vol] 2.9 g/dL Low 3.5-5.2 [facility] Comment on above: Performed By: #### C MPX, CDP #### [facility] [address] [place], [place] [phone] Extension Service Specialist In Charge: Khadar Tang MD Albumin/Glob Ratio 0.7 Low 1.0-2.5 [facility] Comment on above: Performed By: #### C MPX, CDP #### [facility] [address] [place], [place] [phone] Extension Service Specialist In Charge: Khadar Tang MD Alkaline Phos 89 U/L Normal 40-129 [facility] Comment on above: Performed By: #### C MPX, CDP #### [facility] [address] [place] [address] Dr. [place], [place] [phone] Extension Service Specialist In Charge: Khadar Tang MD ALT [Catalytic activity/Vol] 11 U/L Normal 5-41 [facility] Comment on above: Performed By: #### C MPX, CDP #### [facility] [address] [place] [address] Dr. [place], [place] [phone] Extension Service Specialist In Charge: Khadar Tang MD Anion gap [Moles/Vol] 8 mmol/L Low 9-17 [facility] Comment on above: Performed By: #### C MPX, CDP #### [facility] [address] [place], [place] [phone] Extension Service Specialist In Charge: Khadar Tang MD AST [Catalytic activity/Vol] 12 U/L Normal <40 [facility] Comment on above: Performed By: #### C MPX, CDP #### [facility] [address] [place], [place] [phone] Extension Service Specialist In Charge: Khadar Tang MD Bilirubin [Mass/Vol] 0.2 mg/dL Low 0.3-1.2 [facility] Comment on above: Performed By: #### C MPX, CDP #### [facility] [address] [place], [place] [phone] Extension Service Specialist In Charge: Khadar Tang MD BUN/CRE Ratio 25 High 9-20 [facility] Comment on above: Performed By: #### C MPX, CDP #### [facility] [address] [place], [place] [phone] Extension Service Specialist In Charge: Khadar Tang MD Calcium [Mass/Vol] 9.0 mg/dL Normal 8.6-10.4 [facility] Comment on above: Performed By: #### C MPX, CDP #### [facility] [address] [place], [place] 9394083 Extension Service Specialist In Charge: Khadar Tang MD Chloride [Moles/Vol] 115 mmol/L High 98-107 [facility] Comment on above: Performed By: #### C MPX, CDP #### [facility] [address] [place], [place] [phone] Extension Service Specialist In Charge: Khadar Tang MD CO2 [Moles/Vol] 17 mmol/L Low 20-31 [facility] Comment on above: Performed By: #### C MPX, CDP #### [facility] [address] [place], [place] 8231783 Extension Service Specialist In Charge: Khadar Tang MD Creatinine [Mass/Vol] 1.55 mg/dL High 0.70-1.20 [facility] Comment on above: Performed By: #### C MPX, CDP #### [facility] [address] [place] [address] Extension Service Specialist In Charge: Khadar Tang MD GFR/1.73 sq M.predicted among non-blacks MDRD (S/P/Bld) [Vol rate/Area] 51 mL/min/{1.73_m2} Low >60 [facility] Comment on above: Result [...] Performed By: #### C MPX, CDP #### [facility] [address] [place] [address] [place] [place], [place] [address] Extension Service Specialist In Charge: Khadar Tang MD Glucose [Mass/Vol] 119 mg/dL High 70-99 [facility] Comment on above: Performed By: #### C MPX, CDP #### [address] [place], [place] 5887783 Extension Service Specialist In Charge: Khadar Tang MD Potassium [Moles/Vol] 5.4 mmol/L High 3.7-5.3 [facility] Comment on above: Performed By: #### C MPX, CDP #### [address] [place], [place] [id number] Extension Service Specialist In Charge: Khadar Tang MD Protein [Mass/Vol] 7.1 g/dL Normal 6.4-8.3 [facility] Comment on above: Performed By: #### C MPX, CDP #### [address] [place], [place] [id number] Extension Service Specialist In Charge: Khadar Tang MD Sodium [Moles/Vol] 140 mmol/L Normal 135-144 [facility] Comment on above: Performed By: #### C MPX, CDP #### [facility] [address] [place] [address] [place], [place] [address] Extension Service Specialist In Charge: Khadar Tang MD Urea nitrogen [Mass/Vol] 38 mg/dL High 8-23 [facility] Comment on above: Performed By: #### C MPX, CDP #### [address] [place] [address] Extension Service Specialist In Charge: Khadar Tang MD Comprehensive Metabolic Pane l w/ Reflex to MGon 06-23-2022 Albumin [Mass/Vol] 2.9 g/dL Low 3.5 - 5.2 g/dL [facility] Albumin/Globulin [Mass ratio] 0.7 {ratio} Low 1.0 - 2.5 [facility] ALP [Catalytic activity/Vol] 89 U/L 40 - 129 U/L [facility] ALT [Catalytic activity/Vol] 11 U/L 5 - 41 U/L [facility] Anion gap [Moles/Vol] 8 mmol/L Low 9 - 17 mmol/L [facility] AST [Catalytic activity/Vol] 12 U/L NINF - 40 U/L [facility] Bilirubin [Mass/Vol] 0.2 mg/dL Low 0.3 - 1 .2 mg/dL [facility] Calcium [Mass/Vol] 9.0 mg/dL 8.6 - 10. 4 mg/dL [facility] Chloride [Moles/Vol] 115 mmol/L High 98 - 10 7 mmol/L [facility] CO2 [Moles/Vol] 17 mmol/L Low 20 - 31 mmol/L [facility] Creatinine [Mass/Vol] 1.55 mg/dL High 0.70 - 1.20 mg/dL [facility] GFR/1.73 sq M.predicted MDRD (S/P/Bld) [Vol rate/Area] 51 mL/min/{1.73_m2} Low - PINF [facility] Comment on above: These results are not [...] 119 mg/dL High 70 - 99 mg/dL [facility] Interpretation and review of laboratory results Abnormal [facility] Potassium [Moles/Vol] 5.4 mmol/L High 3.7 - 5.3 mmol/L [employer] Protein [Mass/Vol] 7.1 g/dL 6.4 - 8.3 g/dL [facility] Sodium [Moles/Vol] 140 mmol/L 135 - 144 mmol/L [facility] Urea nitrogen [Mass/Vol] 38 mg/dL High 8 - 23 mg/dL [facility] Urea nitrogen/Creatinine (Bld) [Mass ratio] 25 High 9 - 20 [employer] EKG 12 LeadOrdered By: Michelle Tellez hmad on 06-23-2022 Atrial Rate 60 BPM [employer] Work Phone: P [place] 55 degrees [employer] Work Phone: P-R Interval 182 ms [employer] Work Phone: Q-T Interval 388 ms [employer] Work Phone: QRS Duration 88 ms [employer] Work Phone: QTc Calculation (Bazett) 388 ms [employer] Work Phone: R [place] 15 degrees [employer] Work Phone: T [place] 40 degrees [employer] Work Phone: Ventricular Rate 60 BPM [employer] [facility] [facility] Work Phone: [employer] Work Phone: EKG 12 Leadon 06-23-2022 Poor [...] Noe MD ([id number]) on 06/23/2022 3:18:16 PM [facility] RADIOLOGY Michelle Noe MD - 06/23/2022 Poor data quality, interpretation may be adversely affected Normal sinus rhythm Normal ECG When compared with ECG of 22-JUN-2022 13:14, (unconfirmed) Borderline criteria for Anterolateral infarct are no longer Present Criteria for Inferior infarct are no longer Present T wave inversion no longer evident in Inferior leads Confirmed by Michelle Noe MD ([id number]) on 06/23/2022 3:18:16 PM [facility] Work Phone: EKG Rhythm Stripon 3 [facility] Glucose, Whole Bloodon 06-23 Glucose [Mass/Vol] 230 mg/dL High 74 - 100 mg/dL [facility] Interpretation and review of laboratory results Abnormal [facility] Urinalysison 06-23-2022 Bilirubin Urine Negative NEGATIVE [facility] Color, UA Yellow Yellow [facility] Glucose Auto test strip (U) [Mass/Vol] Negative NEGATIVE [facility] Ketones (U) [Mass/Vol] Negative NEGATIVE [facility] Leukocyte esterase Auto test strip Ql (U) Negative NEGATIVE [facility] Nitrite Auto test strip Ql (U) Negative NEGATIVE [facility] Protein (U) [Mass/Vol] 6.0 mg/dL 5.0 - 9.0 [facility] Protein (U) [Mass/Vol] Negative NEGATIVE [facility] Specific [place], UA 1.020 1.010 - 1.020 [facility] Turbidity UA Clear Clear [facility] Urine Hgb Negative NEGATIVE [facility] Urobilinogen, Urine Normal Normal [facility] Urinalysis, Routineon 2022 Bilirubin, SemiQt,Ur Negative Normal NEG [facility] Comment on above: Performed By: #### U A #### [facility] [address] [place], [place] [address] Extension Service Specialist In Charge: Khadar Tang MD Blood, Urine Negative Normal NEG [facility] Comment on above: Performed By: #### U A #### [facility] [address] [place] [address] Dr. [place], [place] [phone] Extension Service Specialist In Charge: Khadar Tang MD Clarity (U) Clear Normal CLEAR [facility] Comment on above: Performed By: #### U A #### [facility] [address] [place] [address] Dr. [place], [place] [phone] Extension Service Specialist In Charge: Khadar Tang MD Color (U) Yellow Normal YEL [facility] Comment on above: Performed By: #### U A #### [facility] [address] [place] [address] Dr. [place], [place] [phone] Extension Service Specialist In Charge: Khadar Tang MD Glucose Ql (U) Negative Normal NEG [facility] Comment on above: Performed By: #### U A #### [facility] [address] [place] [address] Dr. [place], [place] [phone] Extension Service Specialist In Charge: Khadar Tang MD Ketones Ql (U) Negative Normal NEG [facility] Comment on above: Performed By: #### U A #### [facility] [address] [place] [address] Dr. [place], [place] [phone] Extension Service Specialist In Charge: Khadar Tang MD Leukocyte esterase Test strip Ql (U) Negative Normal NEG [facility] Comment on above: Performed By: #### U A #### [facility] [address] [place] [address] Dr. [place], [place] [phone] Extension Service Specialist In Charge: Khadar Tang MD Nitrite,Ur Negative Normal NEG [facility] Comment on above: Performed By: #### U A #### [facility] [address] [place] [address] Dr. [place], [place] [phone] Extension Service Specialist In Charge: Khadar Tang MD PH,Ur 6.0 Normal 5.0-9.0 [facility] Comment on above: Performed By: #### U A #### [facility] [address] [place] [address] Dr. [place], [place] [phone] Extension Service Specialist In Charge: Khadar Tang MD Protein Ql (U) Negative Normal NEG [facility] Comment on above: Performed By: #### U A #### [facility] [address] [place], [place] [address] Extension Service Specialist In Charge: Khadar Tang MD Spec. [place],Ur 1.020 Normal 1.010-1.02 0 [facility] Comment on above: Performed By: #### U A #### [facility] [address] [place], [place] [address] Extension Service Specialist In Charge: Khadar Tang MD Urobilinogen,Ur Normal Normal NORM [facility] Comment on above: Performed By: #### U A #### [facility] [address] [place] [address] Extension Service Specialist In Charge: Khadar Tang MD XR ANKLE RIGHT (MIN [...] Derrick Squires MD 06/23/22 Final result Normal [facility] 1. Nonspecific diffu se subcutaneous [...] lesion is noted. Calcaneal spurring appears unchanged. [facility] Derrick Herrera MD - 06/23/2022 EXAMINATION: THREE [...] no subcutaneous air or evidence of osteomyelitis. [facility] Phone: Radiology Study observation (narrative) [facility] Phone: XR ANKLE RIGHT (MIN 3 VIEWS) Ordered By: Derrick Squires on 06-23-2022 [facility] Phone: Basic Metabolic Panelon 05-28 Anion gap [Moles/Vol] 9 mmol/L 9 - 17 mmol/L [facility] Calcium [Mass/Vol] 9.5 mg/dL 8.6 - 10. 4 mg/dL [facility] Chloride [Moles/Vol] 112 mmol/L High 98 - 10 7 mmol/L [facility] CO2 [Moles/Vol] 17 mmol/L Low 20 - 31 mmol/L [facility] Creatinine [Mass/Vol] 2 mg/dL High 0.70 - 1.20 mg/dL [facility] GFR/1.73 sq M.predicted MDRD (S/P/Bld) [Vol rate/Area] 38 mL/min/{1.73_m2} Low - PINF [facility] Comment on above: These results are not [...] 137 mg/dL High 70 - 99 mg/dL [facility] Interpretation and review of laboratory results Abnormal [facility] Potassium [Moles/Vol] 6.1 mmol/L Critically high 3.7 - 5.3 mmol/L [facility] Sodium [Moles/Vol] 138 mmol/L 135 - 144 mmol/L [facility] Urea nitrogen [Mass/Vol] 45 mg/dL High 8 - 23 mg/dL [facility] Urea nitrogen/Creatinine (Bld) [Mass ratio] 23 High 9 - 20 [facility] Basic Metabolic Profon 06-22 Potassium [Moles/Vol] 6.1 mmol/L Critically high 3.7-5.3 [facility] Comment on above: Performed By: #### T CINDYI #### [facility] [address] [place] [address] Extension Service Specialist In Charge: Khadar Tang MD Anion gap [Moles/Vol] 9 mmol/L Normal 9-17 [facility] Comment on above: Performed By: #### T ICNDYI #### [facility] [address] [place] [address] Extension Service Specialist In Charge: Khaadr Tang MD BUN/CRE Ratio 23 High 9-20 [facility] Comment on above: Performed By: #### T CINDYI #### [facility] [address] [place], [place] [address] Extension Service Specialist In Charge: Khadar Tang MD Calcium [Mass/Vol] 9.5 mg/dL Normal 8.6-10.4 [facility] Comment on above: Performed By: #### T ROPI #### [facility] [address] [place], [place] [phone] Extension Service Specialist In Charge: Khadar Tang MD Chloride [Moles/Vol] 112 mmol/L High 98-107 [facility] Comment on above: Performed By: #### T ROPI #### [facility] [address] [place], [place] [phone] Extension Service Specialist In Charge: Khadar Tang MD CO2 [Moles/Vol] 17 mmol/L Low 20-31 [facility] Comment on above: Performed By: #### T ROPI #### [facility] [address] [place], [place] [phone] Extension Service Specialist In Charge: Khadar Tang MD Creatinine [Mass/Vol] 2.00 mg/dL High 0.70-1.20 [facility] Comment on above: Performed By: #### T ROPI #### [address] [place], [place] [address] Extension Service Specialist In Charge: Khadar Tang MD GFR/1.73 sq M.predicted among non-blacks MDRD (S/P/Bld) [Vol rate/Area] 38 mL/min/{1.73_m2} Low >60 [facility] Comment on above: Result [...] secretion. Performed By: #### T ROPI #### [facility] [address] [place], [place] [phone] Extension Service Specialist In Charge: Khadar Tang MD Glucose [Mass/Vol] 137 mg/dL High 70-99 [facility] Comment on above: Performed By: #### T ROPI #### [facility] [address] [place], [place] [phone] Extension Service Specialist In Charge: Khadar Tang MD Sodium [Moles/Vol] 138 mmol/L Normal 135-144 [facility] Comment on above: Performed By: #### T ROPI #### [facility] [address] [place], [place] [phone] Extension Service Specialist In Charge: Khadar Tang MD Urea nitrogen [Mass/Vol] 45 mg/dL High 8-23 [facility] Comment on above: Performed By: #### T ROPI #### [facility] [address] [place], [place] [phone] Extension Service Specialist In Charge: Khadar Tang MD CBC with Auto Differentialon 06-22-2022 Absolute Eos # 0.86 High [place] [facility] Absolute Immature Granulocyte 0.09 [facility] Absolute Lymph # 1.97 [facility] Absolute Otoe # 0.88 [facility] Basophils (Bld) [#/Vol] 0.05 10*3/uL [facility] Basophils/100 WBC (Bld) 0 % 0 - 2 % [facility] Eosinophils/100 WBC (Bld) 7 % High 1 - 4 % [facility] Hematocrit (Bld) [Volume fraction] 27.6 % Low 40.7 - 50.3 % [facility] Hemoglobin (Bld) [Mass/Vol] 8.3 g/dL Low 13.0 - 17.0 g/dL [facility] Immature granulocytes/100 WBC (Bld) 1 % High 0 [facility] Interpretation and review of laboratory results Abnormal [facility] Lymphocytes/100 WBC (Bld) 15 % Low 24 - 43 % [facility] MCH (RBC) [Entitic mass] 23.3 pg Low 25.2 - 33.5 pg [facility] MCHC (RBC) [Mass/Vol] 30.1 g/dL 28.4 - 34.8 g/dL [facility] MCV (RBC) [Entitic vol] 77.5 fL Low 82.6 - 102.9 fL [facility] Monocytes/100 WBC (Bld) 7 % 3 - 12 % [facility] NRBC Automated 0.0 0.0 per 100 WBC [facility] Platelet distribution width (Bld) [Ratio] 16.2 % High 11.8 - 14.4 % [facility] Platelet mean volume (Bld) [Entitic vol] 8.6 fL 8.1 - 13.5 fL [facility] Platelets (Bld) [#/Vol] 338 10*3/uL [facility] RBC (Bld) [#/Vol] 3.56 10*6/uL Low 4.21 - 5.77 m/uL [facility] Segmented neutrophils/100 WBC (Bld) 70 % High 36 - 65 % [facility] Segs Absolute 8.91 High [facility] WBC (Bld) [#/Vol] 12.8 10*3/uL High [facility] Absolute Eos # 0.84 High [facility] [place] [facility] Absolute Immature Granulocyte 0.06 [facility] Absolute Lymph # 1.69 [facility] [place] [facility] Absolute Otoe # 0.82 [facility] Basophils (Bld) [#/Vol] 0.04 10*3/uL [facility] Basophils/100 WBC (Bld) 0 % 0 - 2 % [facility] Eosinophils/100 WBC (Bld) 7 % High 1 - 4 % [facility] Hematocrit (Bld) [Volume fraction] 27.1 % Low 40.7 - 50.3 % [facility] Hemoglobin (Bld) [Mass/Vol] 8.7 g/dL Low 13.0 - 17.0 g/dL [facility] Immature granulocytes/100 WBC (Bld) 1 % High 0 [facility] Interpretation and review of laboratory results Abnormal [facility] Lymphocytes/100 WBC (Bld) 14 % Low 24 - 43 % [facility] MCH (RBC) [Entitic mass] 25.3 pg 25.2 - 33.5 pg [facility] MCHC (RBC) [Mass/Vol] 32.1 g/dL 28.4 - 34.8 g/dL [facility] MCV (RBC) [Entitic vol] 78.8 fL Low 82.6 - 102.9 fL [facility] Monocytes/100 WBC (Bld) 7 % 3 - 12 % [facility] NRBC Automated 0.0 0.0 per 100 WBC [facility] Platelet distribution width (Bld) [Ratio] 16.4 % High 11.8 - 14.4 % [facility] Platelet mean volume (Bld) [Entitic vol] 9.4 fL 8.1 - 13.5 fL [facility] Platelets (Bld) [#/Vol] 345 10*3/uL [facility] RBC (Bld) [#/Vol] 3.44 10*6/uL Low 4.21 - 5.77 m/uL [facility] Segmented neutrophils/100 WBC (Bld) 71 % High 36 - 65 % [facility] Segs Absolute 9.06 High [facility] WBC (Bld) [#/Vol] 12.5 10*3/uL High [facility] [place] [facility] CBC with Diffon 06-22-2022 Abs. Basophil 0.05 k/uL Normal 0.00-0.20 [facility] Comment on above: Performed By: #### C DP, MG, CP #### [facility] [address] [place], [place] [address] Extension Service Specialist In Charge: Khadar Tang MD Abs.Imm.Granulocyte 0.09 k/uL Normal 0.00-0.30 [facility] Comment on above: Performed By: #### C DP, MG, CP #### [facility] [address] [place], [place] [address] Extension Service Specialist In Charge: Khadar Tang MD Abs.Neutrophil (Seg) 8.91 k/uL High 1.50-8.10 [facility] Comment on above: Performed By: #### C DP MG, CP #### [address] [place] [address] Extension Service Specialist In Charge: Khadar Tang MD Basophils/100 WBC (Bld) 0 % Normal 0-2 [facility] Comment on above: Performed By: #### C DP, MG, CP #### [address] [place] [address] Extension Service Specialist In Charge: Khadar Tang MD Eosinophils (Bld) [#/Vol] 0.86 10*3/uL High 0.00-0.44 [facility] Comment on above: Performed By: #### C DP MG, CP #### [address] [place], [place] [address] Extension Service Specialist In Charge: Khadar Tang MD Eosinophils/100 WBC (Bld) 7 % High 1-4 [facility] Comment on above: Performed By: #### C DP MG, CP #### [address] [place], [place] [address] Extension Service Specialist In Charge: Khadar Tang MD Erythrocyte distribution width (RBC) [Ratio] 16.2 % High 11.8-14.4 [facility] Comment on above: Performed By: #### C DP, MG, CP #### [address] [place], [place] [address] Extension Service Specialist In Charge: Khadar Tang MD Hematocrit (Bld) [Volume fraction] 27.6 % Low 40.7-50.3 [facility] Comment on above: Performed By: #### C DP, MG, CP #### [address] [place], [facility]83 Extension Service Specialist In Charge: Khadar Tang MD Hemoglobin (Bld) [Mass/Vol] 8.3 g/dL Low 13.0-17.0 [facility] Comment on above: Performed By: #### C DP, MG, CP #### [address] [place], [facility]83 Extension Service Specialist In Charge: Khadar Tang MD Immature granulocytes/100 WBC (Bld) 1 % High 0 [facility] Comment on above: Performed By: #### C DP, MG, CP #### [address] [place], [place] [address] Extension Service Specialist In Charge: Khadar Tang MD Lymphocytes (Bld) [#/Vol] 1.97 10*3/uL Normal 1.10-3.70 [facility] Comment on above: Performed By: #### C DP, MG, CP #### [address] [place] [phone] Extension Service Specialist In Charge: Khadar Tang MD Lymphocytes/100 WBC (Bld) 15 % Low 24-43 [facility] Comment on above: Performed By: #### C DP, MG, CP #### [address] [place] [address] Extension Service Specialist In Charge: Khadar Tang MD MCH (RBC) [Entitic mass] 23.3 pg Low 25.2-33.5 [facility] Comment on above: Performed By: #### C DP, MG, CP #### [address] [place], [facility]83 Extension Service Specialist In Charge: Khadar Tang MD MCHC (RBC) [Mass/Vol] 30.1 g/dL Normal 28.4-34.8 [facility] Comment on above: Performed By: #### C DP, MG, CP #### [address] [place] [address] Extension Service Specialist In Charge: Khadar Tang MD MCV (RBC) [Entitic vol] 77.5 fL Low 82.6-102.9 [facility] Comment on above: Performed By: #### C DP, MG, CP #### [facility] [address] [place], [facility]83 Extension Service Specialist In Charge: Khadar Tang MD Monocytes (Bld) [#/Vol] 0.88 10*3/uL Normal 0.10-1.20 [facility] Comment on above: Performed By: #### C DP, MG, CP #### [facility] [address] [place] [address] Dr. [place], [place] [address] Extension Service Specialist In Charge: Khadar Tang MD Monocytes/100 WBC (Bld) 7 % Normal 3-12 [facility] Comment on above: Performed By: #### C DP, MG, CP #### [address] [place], [place] [address] Extension Service Specialist In Charge: Khadar Tang MD Neutrophil (Seg) 70 % High 36-65 [facility] Comment on above: Performed By: #### C DP, MG, CP #### [address] [place], [place] [address] Extension Service Specialist In Charge: Khadar Tang MD NRBC Automated 0.0 per 100 WBC Normal 0.0 [facility] Comment on above: Performed By: #### C DP, MG, CP #### [address] [place], [place] [address] Extension Service Specialist In Charge: Khadar Tang MD Platelet mean volume (Bld) [Entitic vol] 8.6 fL Normal 8.1-13.5 [facility] Comment on above: Performed By: #### C DP, MG, CP #### [address] [place], [facility]83 Extension Service Specialist In Charge: Khadar Tang MD Platelets (Bld) [#/Vol] 338 10*3/uL Normal 138-453 [facility] Comment on above: Performed By: #### C DP, MG, CP #### [facility] [address] [place] [address] Extension Service Specialist In Charge: Khadar Tang MD RBC (Bld) [#/Vol] 3.56 10*6/uL Low 4.21-5.77 [facility] Comment on above: Performed By: #### C ZANDER MG, CP #### [facility] [address] [place], [facility]83 Extension Service Specialist In Charge: Khadar Tang MD WBC (Bld) [#/Vol] 12.8 10*3/uL High 3.5-11.3 [facility] Comment on above: Performed By: #### C MG ZANDER, CP #### [address] [place], [facility]83 Extension Service Specialist In Charge: Khadar Tang MD Abs. Basophil 0.04 k/uL Normal 0.00-0.20 [facility] Comment on above: Performed By: #### T ROPI #### [address] [place], [place] [address] Extension Service Specialist In Charge: Khadar Tang MD Abs.Imm.Granulocyte 0.06 k/uL Normal 0.00-0.30 [facility] Comment on above: Performed By: #### T ROPI #### [address] [place], [facility]83 Extension Service Specialist In Charge: Khadar Tang MD Abs.Neutrophil (Seg) 9.06 k/uL High 1.50-8.10 [facility] Comment on above: Performed By: #### T ROPI #### [address] [place], [facility]83 Extension Service Specialist In Charge: Khadar Tang MD Basophils/100 WBC (Bld) 0 % Normal 0-2 [facility] Comment on above: Performed By: #### T ROPI #### [facility] [address] [place] [address] Dr. [place], [place] [address] Extension Service Specialist In Charge: Khadar Tang MD Eosinophils (Bld) [#/Vol] 0.84 10*3/uL High 0.00-0.44 [facility] Comment on above: Performed By: #### T ROPI #### [address] [place] [id number] Extension Service Specialist In Charge: Khadar Tang MD Eosinophils/100 WBC (Bld) 7 % High 1-4 [facility] Comment on above: Performed By: #### T ROPI #### [address] [place] [address] Extension Service Specialist In Charge: Khadar Tang MD Erythrocyte distribution width (RBC) [Ratio] 16.4 % High 11.8-14.4 [facility] Comment on above: Performed By: #### T ROPI #### [address] [place], [facility]83 Extension Service Specialist In Charge: Khadar Tang MD Hematocrit (Bld) [Volume fraction] 27.1 % Low 40.7-50.3 [facility] Comment on above: Performed By: #### T ROPI #### [address] [place], [place] [id number] Extension Service Specialist In Charge: Khadar Tang MD Hemoglobin (Bld) [Mass/Vol] 8.7 g/dL Low 13.0-17.0 [facility] Comment on above: Performed By: #### T ROPI #### [address] [place], [place] [id number] Extension Service Specialist In Charge: Khadar Tang MD Immature granulocytes/100 WBC (Bld) 1 % High 0 [facility] Comment on above: Performed By: #### T ROPI #### [address] [place] [address] Extension Service Specialist In Charge: Khadar Tang MD Lymphocytes (Bld) [#/Vol] 1.69 10*3/uL Normal 1.10-3.70 [facility] Comment on above: Performed By: #### T ROPI #### [facility] [address] [place], [place] [address] Extension Service Specialist In Charge: Khadar Tang MD Lymphocytes/100 WBC (Bld) 14 % Low 24-43 [facility] Comment on above: Performed By: #### T ROPI #### [facility] [address] [place], [place] [address] Extension Service Specialist In Charge: Khadar Tang MD MCH (RBC) [Entitic mass] 25.3 pg Normal 25.2-33.5 [facility] Comment on above: Performed By: #### T ROPI #### [address] [place] [address] Extension Service Specialist In Charge: Khadar Tang MD MCHC (RBC) [Mass/Vol] 32.1 g/dL Normal 28.4-34.8 [facility] Comment on above: Performed By: #### T ROPI #### [address] [place], [place] [address] Extension Service Specialist In Charge: Khadar Tang MD MCV (RBC) [Entitic vol] 78.8 fL Low 82.6-102.9 [facility] Comment on above: Performed By: #### T ROPI #### [address] [place], [place] [address] Extension Service Specialist In Charge: Khadar Tang MD Monocytes (Bld) [#/Vol] 0.82 10*3/uL Normal 0.10-1.20 [facility] Comment on above: Performed By: #### T ROPI #### [address] [place], [facility]83 Extension Service Specialist In Charge: Khadar Tang MD Monocytes/100 WBC (Bld) 7 % Normal 3-12 [facility] Comment on above: Performed By: #### T ROPI #### [facility] [address] [place] [address] Dr. [place], [place] [phone] Extension Service Specialist In Charge: Khadar Tang MD Neutrophil (Seg) 71 % High 36-65 [facility] Comment on above: Performed By: #### T ROPI #### [facility] [address] [place], [place] 8843283 Extension Service Specialist In Charge: Khadar Tang MD NRBC Automated 0.0 per 100 WBC Normal 0.0 [facility] Comment on above: Performed By: #### T ROPI #### [facility] [address] [place], [place] 0302583 Extension Service Specialist In Charge: Khadar Tang MD Platelet mean volume (Bld) [Entitic vol] 9.4 fL Normal 8.1-13.5 [facility] Comment on above: Performed By: #### T ROPI #### [facility] [address] [place], [place] 0127483 Extension Service Specialist In Charge: Khadar Tang MD Platelets (Bld) [#/Vol] 345 10*3/uL Normal 138-453 [facility] Comment on above: Performed By: #### T ROPI #### [facility] [address] [place], [place] [id number] Extension Service Specialist In Charge: Khadar Tang MD RBC (Bld) [#/Vol] 3.44 10*6/uL Low 4.21-5.77 [facility] Comment on above: Performed By: #### T ROPI #### [facility] [address] [place], [place] [phone] Extension Service Specialist In Charge: Khadar Tang MD WBC (Bld) [#/Vol] 12.5 10*3/uL High 3.5-11.3 [facility] Comment on above: Performed By: #### T ROPI #### [facility] [address] [place] [address] Extension Service Specialist In Charge: Khadar Tang MD CMPon 06-22-2022 Albumin [Mass/Vol] 3.2 g/dL Low 3.5 - 5.2 g/dL [facility] Albumin/Globulin [Mass ratio] 0.7 {ratio} Low 1.0 - 2.5 [facility] ALP [Catalytic activity/Vol] 101 U/L 40 - 129 U/L [facility] ALT [Catalytic activity/Vol] 8 U/L 5 - 41 U/L [facility] Anion gap [Moles/Vol] 11 mmol/L 9 - 17 mmol/L [facility] AST [Catalytic activity/Vol] 13 U/L NINF - 40 U/L [facility] Bilirubin [Mass/Vol] mg/dL Low 0.3 - 1 .2 mg/dL [facility] Calcium [Mass/Vol] 9.1 mg/dL 8.6 - 10. 4 mg/dL [facility] Chloride [Moles/Vol] 110 mmol/L High 98 - 10 7 mmol/L [facility] CO2 [Moles/Vol] 16 mmol/L Low 20 - 31 mmol/L [facility] Creatinine [Mass/Vol] 1.93 mg/dL High 0.70 - 1.20 mg/dL [facility] GFR/1.73 sq M.predicted MDRD (S/P/Bld) [Vol rate/Area] 39 mL/min/{1.73_m2} Low - PINF [facility] Comment on above: These results are not [...] 148 mg/dL High 70 - 99 mg/dL [facility] Interpretation and review of laboratory results Abnormal [facility] Potassium [Moles/Vol] 6.3 mmol/L Critically high 3.7 - 5.3 mmol/L [facility] Protein [Mass/Vol] 8.1 g/dL 6.4 - 8.3 g/dL [facility] Sodium [Moles/Vol] 137 mmol/L 135 - 144 mmol/L [facility] Urea nitrogen [Mass/Vol] 49 mg/dL High 8 - 23 mg/dL [facility] Urea nitrogen/Creatinine (Bld) [Mass ratio] 25 High 9 - 20 [facility] Comp Metabolic Profon 2022 Bilirubin [Mass/Vol] mg/dL Low 0.3-1.2 [facility] Comment on above: Performed By: #### C DP, MG, CP #### [facility] [address] [place], [place] [address] Extension Service Specialist In Charge: Khadar Tang MD Potassium [Moles/Vol] 6.3 mmol/L Critically high 3.7-5.3 [facility] Comment on above: Performed By: #### C DP, MG, CP #### [facility] [address] [place], [place] 9270083 Extension Service Specialist In Charge: Khadar Tang MD Albumin [Mass/Vol] 3.2 g/dL Low 3.5-5.2 [facility] Comment on above: Performed By: #### C DP, MG, CP #### [facility] [address] [place], [place] [phone] Extension Service Specialist In Charge: Khadar Tang MD Albumin/Glob Ratio 0.7 Low 1.0-2.5 [facility] Comment on above: Performed By: #### C DP, MG, CP #### [facility] [address] [place], [place] 6676083 Extension Service Specialist In Charge: Khadar Tang MD Alkaline Phos 101 U/L Normal 40-129 [facility] Comment on above: Performed By: #### C DP, MG, CP #### [facility] [address] [place], [place] [address] Extension Service Specialist In Charge: Khadar Tang MD ALT [Catalytic activity/Vol] 8 U/L Normal 5-41 [facility] Comment on above: Performed By: #### C DP, MG, CP #### [facility] [address] [place], [place] [phone] Extension Service Specialist In Charge: Khadar Tang MD Anion gap [Moles/Vol] 11 mmol/L Normal 9-17 [facility] Comment on above: Performed By: #### C DP, MG, CP #### [facility] [address] [place], [place] 9572683 Extension Service Specialist In Charge: Khadar Tang MD AST [Catalytic activity/Vol] 13 U/L Normal <40 [facility] Comment on above: Performed By: #### C DP, MG, CP #### [facility] [address] [place], [place] 4209383 Extension Service Specialist In Charge: Khadar Tang MD BUN/CRE Ratio 25 High 9-20 [facility] Comment on above: Performed By: #### C DP, MG, CP #### [facility] [address] [place] [address] Dr. [place], [place] [phone] Extension Service Specialist In Charge: Khadar Tang MD Calcium [Mass/Vol] 9.1 mg/dL Normal 8.6-10.4 [facility] Comment on above: Performed By: #### C DP, MG, CP #### [facility] [address] [place] [address] Dr. [place], [place] 9402283 Extension Service Specialist In Charge: Khadar Tang MD Chloride [Moles/Vol] 110 mmol/L High 98-107 [facility] Comment on above: Performed By: #### C DP, MG, CP #### [facility] [address] [place], [place] [phone] Extension Service Specialist In Charge: Khadar Tang MD CO2 [Moles/Vol] 16 mmol/L Low 20-31 [facility] Comment on above: Performed By: #### C DP, MG, CP #### [facility] [address] [place] [address] Extension Service Specialist In Charge: Khadar Tang MD Creatinine [Mass/Vol] 1.93 mg/dL High 0.70-1.20 [facility] Comment on above: Performed By: #### C DP, MG, CP #### [facility] [address] [place] [address] Extension Service Specialist In Charge: Khadar Tang MD GFR/1.73 sq M.predicted among non-blacks MDRD (S/P/Bld) [Vol rate/Area] 39 mL/min/{1.73_m2} Low >60 [facility] Comment on above: Result [...] By: #### C DP, MG, CP #### [facility] [address] [place] [address] [place], [place] [address] Extension Service Specialist In Charge: Khadar Tang MD Glucose [Mass/Vol] 148 mg/dL High 70-99 [facility] Comment on above: Performed By: #### C DP, MG, CP #### [address] [place] [address] Extension Service Specialist In Charge: Khadar Tang MD Protein [Mass/Vol] 8.1 g/dL Normal 6.4-8.3 [facility] Comment on above: Performed By: #### C DP, MG, CP #### [address] [place], [place] [address] Extension Service Specialist In Charge: Khadar Tang MD Sodium [Moles/Vol] 137 mmol/L Normal 135-144 [facility] Comment on above: Performed By: #### C DP, MG, CP #### [facility] [address] [place] [address] [place], [place] [address] Extension Service Specialist In Charge: Khadar Tang MD Urea nitrogen [Mass/Vol] 49 mg/dL High 8- [facility] Comment on above: Performed By: #### C DP, MG, CP #### [facility] [address] [place], [place] [address] Extension Service Specialist In Charge: Khadar Tang MD EKG 12 LeadOrdered By: Michelle de la rosa on 06-22-2022 Atrial Rate 58 BPM [employer] Work Phone: P [place] 66 degrees [employer] Work Phone: P-R Interval 148 ms [employer] Work Phone: Q-T Interval 394 ms [employer] Work Phone: QRS Duration 94 ms [employer] Work Phone: QTc Calculation (Bazett) 386 ms [employer] Work Phone: R [place] 64 degrees [employer] Work Phone: T [place] -8 degrees [employer] Work Phone: Ventricular Rate 58 BPM [facility] Work Phone: [employer] Work Phone: EKG 12 Leadon 06-22-2022 Sinus [...] Noe MD ([id number]) on 06/22/2022 10:09:31 PM [facility] RAD[facility] Michelle Noe MD - 06/22/2022 Sinus bradycardia Inferior infarct , age undetermined Possible Anterolateral infarct , age undetermined Abnormal ECG When compared with ECG of 24-APR-2015 18:25, Vent. rate has decreased BY 39 BPM Borderline criteria for Anterolateral infarct are now Present T wave inversion now evident in Inferior leads QT has shortened Confirmed by Michelle Noe MD ([id number]) on 06/22/2022 10:09:31 PM [facility] Work Phone: Magnesiumon 06-22-2022 Magnesium [Mass/Vol] 2.0 mg/dL Normal 1.6-2.6 [facility] Comment on above: Performed By: #### C DP, MG, CP #### [facility] [address] [place] [address] Extension Service Specialist In Charge: Khadar Tang MD Magnesium [Mass/Vol] 2.0 mg/dL 1.6 - 2 .6 mg/dL [facility] CT PELVIS WO CONon 2 CT [...] by: JESUSITA PAPPAS Date: 2022-03-14 09:50 Normal [facility] GLYCOHEMOGLOBIN A1Con 2021 ADA RECOMMENDATION ADA THERAPEUTIC TARG ET 6.0 - 7.0 ACTION SUGGESTED > 7.0 Normal [facility] Comment on above: Performed By: #### A 1C #### [facility] [address] [address] [address] Juan Smith Glucose [Mass/Vol] 180 mg/dL Normal [facility] Comment on above: Performed By: #### A 1C #### [facility] [address] [address] [address] Juan Smith HbA1c (Bld) [Mass fraction] 7.9 % Critically high <=6.0 [facility] Comment on above: Performed By: #### A 1C #### [facility] [address] [address] [address] Juan Smith Cult,Aerobe/Anaerobeon 04-15 Neutrophils Specimen Description .TISSUE RIGHT MEDIAL HEEL POST IRRIGATIONSpecial Requests NOT REPORTEDDirect Exam NO NEUTROPHILS SEEN NO BACTERIA SEEN Culture METHICILLIN RESISTANT STAPHYLOCOCCUS AUREUS SCANT GROWTH For susceptibility, refer to previous culture. STREPTOCOCCI, BETA HEMOLYTIC GROUP C SCANT GROWTH DIPHTHEROIDS SCANT GROWTH NO ANAEROBIC ORGANISMS ISOLATED AT 5 DAYS Report Status FINAL 04/15/2017 Normal [facility] Comment on above: Performed By: #### A ANC ####[place] [address] Neutrophils Specimen Description .TISSUE RIGHT ANKLE PRE IRRIGATIONSpecial Requests NOT REPORTEDDirect Exam NO NEUTROPHILS SEEN RARE GRAM POSITIVE COCCI IN PAIRS Culture METHICILLIN RESISTANT STAPHYLOCOCCUS AUREUS LIGHT GROWTH For susceptibility, refer to previous culture. STREPTOCOCCI, BETA HEMOLYTIC GROUP C SCANT GROWTH NO ANAEROBIC ORGANISMS ISOLATED AT 5 DAYS Report Status FINAL 04/15/2017 Normal [facility] Comment on above: Performed By: #### A ANC ####[address] [address] Neutrophils Specimen Description .TISSUE RIGHT MEDIAL HEEL PRE IRRIGATIONSpecial Requests NOT REPORTEDDirect Exam NO NEUTROPHILS SEEN NO BACTERIA SEEN Culture STREPTOCOCCI, BETA HEMOLYTIC GROUP C LIGHT GROWTH METHICILLIN RESISTANT STAPHYLOCOCCUS AUREUS SCANT GROWTH For susceptibility, refer to previous culture. DIPHTHEROIDS LIGHT GROWTH NO ANAEROBIC ORGANISMS ISOLATED AT 5 DAYS Report Status FINAL 04/15/2017 [facility] Comment on above: Performed By: #### A ANC ####[address] [address] Basic Metabolic Profon 04-13 (cont.) Normal [facility] Comment on above: Result Comment: Aver age GFR for 50-59 years old: 93 mL/min/1.73sq mChronic Kidney Disease: <60 mL/min/1.73sq mKidney failure: <15 mL/min/1.73sq meGFR calculated using average adult body mass. Additional eGFR calculator available at:http://www.[email or web address]_crcl_[email or web address] [place]ille [address] [place], [place] 7187808 ([phone] Performed By: #### C DP, CMPX, CRP, SED, GLYHGB ####[address] [address] Anion gap 11 mmol/L Normal - [facility] Comment on above: Performed By: #### C DP, CMPX, CRP, SED, GLYHGB ####[address] [address] Calcium 8.7 mg/dL Normal 8.6-10.4 [facility] Comment on above: Performed By: #### C DP, CMPX, CRP, SED, GLYHGB ####[address] [address] Chloride 106 mmol/L Normal 98-107 [facility] Comment on above: Performed By: #### C DP, CMPX, CRP, SED, GLYHGB ####[address] [address] CO2 22 mmol/L Normal 20-31 [facility] Comment on above: Performed By: #### C DP, CMPX, CRP, SED, GLYHGB ####[address] [address] Creatinine 1.04 mg/dL Normal 0.70-1.20 [facility] Comment on above: Performed By: #### C DP, CMPX, CRP, SED, GLYHGB ####[address] [address] eGFR (non-black) mL/min/{1.73_m2} Normal >60 [facility] Comment on above: Performed By: #### C DP, CMPX, CRP, SED, GLYHGB ####[address] [address] Glucose mass conc 174 mg/dL High 70-99 [facility] Comment on above: Performed By: #### C DP, CMPX, CRP, SED, GLYHGB ####[address] [address] Potassium molar conc 4.1 mmol/L Normal 3.7-5.3 [facility] Comment on above: Performed By: #### C DP, CMPX, CRP, SED, GLYHGB ####[address] [address] Sodium 139 mmol/L Normal 135-144 [facility] Comment on above: Performed By: #### C DP, CMPX, CRP, SED, GLYHGB ####[address] [address] Urea nitrogen 16 mg/dL Normal 6-20 [facility] Comment on above: Performed By: #### C DP, CMPX, CRP, SED, GLYHGB ####[address] [address] BUN/CRE Ratio NOT REPORTED Normal 9-20 [facility] Comment on above: Performed By: #### C DP, CMPX, CRP, SED, GLYHGB ####[address] [address] Staging: NOT REPORTED Normal [facility] Comment on above: Performed By: #### C DP, CMPX, CRP, SED, GLYHGB ####[address] [address] CBC with Diffon 04-13-2017 Abs. Basophil <0.03 Normal 0.00-0.20 [facility] Comment on above: Performed By: #### C DP, CMPX, CRP, SED, GLYHGB ####[address] [address] Abs.Neutrophil (Seg) 4.97 k/uL Normal 1.50-8.10 [facility] Comment on above: Performed By: #### C DP, CMPX, CRP, SED, GLYHGB ####[address] [address] Basophils/100 WBC Auto (Bld) 0 % Normal 0-2 [facility] Comment on above: Performed By: #### C DP, CMPX, CRP, SED, GLYHGB ####[address] [address] Eosinophils 0.24 10*3/uL Normal 0.00-0.44 [facility] Comment on above: Performed By: #### C DP, CMPX, CRP, SED, GLYHGB ####[address] [address] Eosinophils/100 leukocytes 3 % Normal 1-4 [facility] Comment on above: Performed By: #### C DP, CMPX, CRP, SED, GLYHGB ####[address] [address] Erythrocyte distribution width Auto Ratio (RBC) 14.8 % High 11.8-14.4 [facility] Comment on above: Performed By: #### C DP, CMPX, CRP, SED, GLYHGB ####[address] [address] Erythrocyte morphology ANISOCYTOSIS PRESENT Normal [facility] Comment on above: Result Comment: [place] [address] [place] [address] Performed By: #### C DP, CMPX, CRP, SED, GLYHGB ####[address] [address] Erythrocytes (RBC) 0.0 per 100 WBC Normal 0.0 [facility] Comment on above: Performed By: #### C DP, CMPX, CRP, SED, GLYHGB ####[address] [address] Erythrocytes (RBC) 3.42 10*6/uL Low 4.21-5.77 [facility] Comment on above: Performed By: #### C DP, CMPX, CRP, SED, GLYHGB ####[address] [address] Granulocytes/100 WBC (Bld) 0.19 k/uL Normal 0.00-0.30 [facility] Comment on above: Performed By: #### C DP, CMPX, CRP, SED, GLYHGB ####[address] [address] Hematocrit (HCT) 29.4 % Low 40.7-50.3 [facility] Comment on above: Performed By: #### C DP, CMPX, CRP, SED, GLYHGB ####[address] [address] Hemoglobin mass conc (Bld) 8.8 g/dL Low 13.0-17.0 [facility] Comment on above: Performed By: #### C DP, CMPX, CRP, SED, GLYHGB ####[address] [address] Immature granulocytes #/vol (Bld) 2 % High 0 [facility] Comment on above: Performed By: #### C DP, CMPX, CRP, SED, GLYHGB ####[address] [address] Lymphocytes 2.00 10*3/uL Normal 1.10-3.70 [facility] Comment on above: Performed By: #### C DP, CMPX, CRP, SED, GLYHGB ####[address] [address] Lymphocytes/100 leukocytes 25 % Normal 24-43 [facility] Comment on above: Performed By: #### C DP, CMPX, CRP, SED, GLYHGB ####[address] [address] MCH 25.7 pg Normal 25.2-33.5 [facility] Comment on above: Performed By: #### C DP, CMPX, CRP, SED, GLYHGB ####[address] [address] MCHC mass conc (RBC) 29.9 g/dL Normal 28.4-34.8 [facility] Comment on above: Performed By: #### C DP, CMPX, CRP, SED, GLYHGB ####[address] [address] MCV 86.0 fL Normal 82.6-102.9 [facility] Comment on above: Performed By: #### C DP, CMPX, CRP, SED, GLYHGB ####[address] [address] Monocytes 0.53 10*3/uL Normal 0.10-1.20 [facility] Comment on above: Performed By: #### C DP, CMPX, CRP, SED, GLYHGB ####[address] [address] Monocytes/100 leukocytes 7 % Normal 3-12 [facility] Comment on above: Performed By: #### C DP, CMPX, CRP, SED, GLYHGB ####[address] [address] Neutrophil (Seg) 63 % Normal 36-65 [facility] Comment on above: Performed By: #### C DP, CMPX, CRP, SED, GLYHGB ####[address] [address] Platelet mean volume (PMV) 9.9 fL Normal 8.1-13.5 [facility] Comment on above: Performed By: #### C DP, CMPX, CRP, SED, GLYHGB ####[address] [address] Platelets 257 10*3/uL Normal 138-453 [facility] Comment on above: Performed By: #### C DP, CMPX, CRP, SED, GLYHGB ####[address] [id number] WBC (Leukocytes) 8.0 10*3/uL Normal 3.5-11.3 [facility] Comment on above: Performed By: #### C DP, CMPX, CRP, SED, GLYHGB ####[facility] [address] [place] [address] Auto Diff Performed NOT REPORTED Normal [facility] Comment on above: Performed By: #### C DP, CMPX, CRP, SED, GLYHGB ####[facility] [id number] [place] [address] Platelets NOT REPORTED Normal [facility] Comment on above: Performed By: #### C DP, CMPX, CRP, SED, GLYHGB ####[facility] [address] [place] [address] WBC Morphology NOT REPORTED Normal [facility] Comment on above: Performed By: #### C DP, CMPX, CRP, SED, GLYHGB ####[facility] [id number] [place] [address] Discharge Summaryon 04-13-19 18 HIM IP Note OR [employer] Normal [facility] Plan of Careon 04-13-2017 HIM IP Note OR [employer] Normal [facility] HIM IP Note OR [employer] Normal [facility] Progress Noteon 04-13-2017 HIM IP Note OR [employer] Normal [facility] HIM IP Note OR [employer] Normal [facility] HIM IP Note OR [employer] Normal [facility] HIM IP Note OR [employer] Normal [facility] HIM IP Note OR [employer] Normal [facility] HIM IP Note OR [employer] Normal [facility] Basic Metabolic Profon 04-12 (cont.) Normal [facility] Comment on above: Result Comment: Aver age GFR for 50-59 years old: 93 mL/min/1.73sq mChronic Kidney Disease: <60 mL/min/1.73sq mKidney failure: <15 mL/min/1.73sq meGFR calculated using average adult body mass. Additional eGFR calculator available at:[email or web address] [email or web address]_[email or web address] [address] Performed By: #### C DP, CMPX, CRP, SED, GLYHGB ####[address] [address] Anion gap 8 mmol/L Low 9-17 [facility] Comment on above: Performed By: #### C DP, CMPX, CRP, SED, GLYHGB ####[address] [address] Calcium 8.8 mg/dL Normal 8.6-10.4 [facility] Comment on above: Performed By: #### C DP, CMPX, CRP, SED, GLYHGB ####[address] [address] Chloride 107 mmol/L Normal 98-107 [facility] Comment on above: Performed By: #### C DP, CMPX, CRP, SED, GLYHGB ####[address] [address] CO2 23 mmol/L Normal 20-31 [facility] Comment on above: Performed By: #### C DP, CMPX, CRP, SED, GLYHGB ####[address] [address] Creatinine 1.01 mg/dL Normal 0.70-1.20 [facility] Comment on above: Performed By: #### C DP, CMPX, CRP, SED, GLYHGB ####[address] [address] eGFR (non-black) mL/min/{1.73_m2} Normal >60 [facility] Comment on above: Performed By: #### C DP, CMPX, CRP, SED, GLYHGB ####[address] [place] [address] Glucose mass conc 172 mg/dL High 70-99 [facility] Comment on above: Performed By: #### C DP, CMPX, CRP, SED, GLYHGB ####[address] [address] Potassium molar conc 3.9 mmol/L Normal 3.7-5.3 [facility] Comment on above: Performed By: #### C DP, CMPX, CRP, SED, GLYHGB ####[address] [address] Sodium 138 mmol/L Normal 135-144 [facility] Comment on above: Performed By: #### C DP, CMPX, CRP, SED, GLYHGB ####[address] [address] Urea nitrogen 15 mg/dL Normal 6-20 [facility] Comment on above: Performed By: #### C DP, CMPX, CRP, SED, GLYHGB ####[address] [place] [address] BUN/CRE Ratio NOT REPORTED Normal 9-20 [facility] Comment on above: Performed By: #### C DP, CMPX, CRP, SED, GLYHGB ####[address] [place] [address] Staging: NOT REPORTED Normal [facility] Comment on above: Performed By: #### C DP, CMPX, CRP, SED, GLYHGB ####[address] [address] CBC with Diffon 04-12-2017 Abs. Basophil <0.03 Normal 0.00-0.20 [facility] Comment on above: Performed By: #### C DP, CMPX, CRP, SED, GLYHGB ####[address] [address] Abs.Neutrophil (Seg) 4.31 k/uL Normal 1.50-8.10 [facility] Comment on above: Performed By: #### C DP, CMPX, CRP, SED, GLYHGB ####[address] [address] Basophils/100 WBC Auto (Bld) 0 % Normal 0-2 [facility] Comment on above: Performed By: #### C DP, CMPX, CRP, SED, GLYHGB ####[address] [address] Eosinophils 0.21 10*3/uL Normal 0.00-0.44 [facility] Comment on above: Performed By: #### C DP, CMPX, CRP, SED, GLYHGB ####[address] [address] Eosinophils/100 leukocytes 3 % Normal 1-4 [facility] Comment on above: Performed By: #### C DP, CMPX, CRP, SED, GLYHGB ####[address] [address] Erythrocyte distribution width Auto Ratio (RBC) 14.7 % High 11.8-14.4 [facility] Comment on above: Performed By: #### C DP, CMPX, CRP, SED, GLYHGB ####[address] [address] Erythrocyte morphology ANISOCYTOSIS PRESENT Normal [facility] Comment on above: Result Comment: [address] [address] Performed By: #### C DP, CMPX, CRP, SED, GLYHGB ####[address] [address] Erythrocytes (RBC) 3.45 10*6/uL Low 4.21-5.77 [facility] Comment on above: Performed By: #### C DP, CMPX, CRP, SED, GLYHGB ####[address] [address] Granulocytes/100 WBC (Bld) 0.22 k/uL Normal 0.00-0.30 [facility] Comment on above: Performed By: #### C DP, CMPX, CRP, SED, GLYHGB ####[address] [address] Hematocrit (HCT) 28.9 % Low 40.7-50.3 [facility] Comment on above: Performed By: #### C DP, CMPX, CRP, SED, GLYHGB ####[address] [address] Hemoglobin mass conc (Bld) 8.9 g/dL Low 13.0-17.0 [facility] Comment on above: Performed By: #### C DP, CMPX, CRP, SED, GLYHGB ####[address] [address] Immature granulocytes #/vol (Bld) 3 % High 0 [facility] Comment on above: Performed By: #### C DP, CMPX, CRP, SED, GLYHGB ####[address] [address] Lymphocytes 1.83 10*3/uL Normal 1.10-3.70 [facility] Comment on above: Performed By: #### C DP, CMPX, CRP, SED, GLYHGB ####[address] [address] Lymphocytes/100 leukocytes 26 % Normal 24-43 [facility] Comment on above: Performed By: #### C DP, CMPX, CRP, SED, GLYHGB ####[address] [address] MCH 25.8 pg Normal 25.2-33.5 [facility] Comment on above: Performed By: #### C DP, CMPX, CRP, SED, GLYHGB ####[address] [address] MCHC mass conc (RBC) 30.8 g/dL Normal 28.4-34.8 [facility] Comment on above: Performed By: #### C DP, CMPX, CRP, SED, GLYHGB ####[address] [address] MCV 83.8 fL Normal 82.6-102.9 [facility] Comment on above: Performed By: #### C DP, CMPX, CRP, SED, GLYHGB ####[address] [address] Monocytes 0.58 10*3/uL Normal 0.10-1.20 [facility] Comment on above: Performed By: #### C DP, CMPX, CRP, SED, GLYHGB ####[address] [address] Monocytes/100 leukocytes 8 % Normal 3-12 [facility] Comment on above: Performed By: #### C DP, CMPX, CRP, SED, GLYHGB ####[address] [address] Neutrophil (Seg) 60 % Normal 36-65 [facility] Comment on above: Performed By: #### C DP, CMPX, CRP, SED, GLYHGB ####[address] [address] Platelet mean volume (PMV) 9.3 fL Normal 8.1-13.5 [facility] Comment on above: Performed By: #### C DP, CMPX, CRP, SED, GLYHGB ####[address] [address] Platelets 231 10*3/uL Normal 138-453 [facility] Comment on above: Performed By: #### C DP, CMPX, CRP, SED, GLYHGB ####[facility] [address] [address] WBC (Leukocytes) 7.2 10*3/uL Normal 3.5-11.3 [facility] Comment on above: Performed By: #### C DP, CMPX, CRP, SED, GLYHGB ####[address] [address] Auto Diff Performed NOT REPORTED Normal [facility] Comment on above: Performed By: #### C DP, CMPX, CRP, SED, GLYHGB ####[address] [address] Platelets NOT REPORTED Normal [facility] Comment on above: Performed By: #### C DP, CMPX, CRP, SED, GLYHGB ####[address] [address] WBC Morphology NOT REPORTED Normal [facility] Comment on above: Performed By: #### C DP, CMPX, CRP, SED, GLYHGB ####[address] [address] Cult,Aerobe/Anaerobeon 04-12 Neutrophils Specimen Description .TISSUE RIGHT [...] NOT REPORTEDTrimethoprim/Sulfa <=10 SUSCEPTIBLEVancomycin 1 SUSCEPTIBLE Normal [facility] Comment on above: Performed By: #### A ANC ####[address] [address] Plan of Careon 04-12-2017 HIM IP Note OR Cleaner And Polisher Normal [facility] HIM IP Note OR Cleaner And Polisher Normal [facility] HIM IP Note OR Cleaner And Polisher Normal [facility] HIM IP Note OR Cleaner And Polisher Normal [facility] HIM IP Note OR Cleaner And Polisher Normal [facility] Progress Noteon 04-12-2017 HIM IP Note OR Cleaner And Polisher Normal [facility] HIM IP Note OR Cleaner And Polisher Normal [facility] HIM IP Note OR Cleaner And Polisher Normal [facility] HIM IP Note OR Cleaner And Polisher Normal [facility] HIM IP Note OR Cleaner And Polisher Normal [facility] HIM IP Note OR Cleaner And Polisher Normal [facility] Basic Metabolic Profon 04-11 (cont.) Normal [facility] Comment on above: Result Comment: Aver age GFR for 50-59 years old: 93 mL/min/1.73sq mChronic Kidney Disease: <60 mL/min/1.73sq mKidney failure: <15 mL/min/1.73sq meGFR calculated using average adult body mass. Additional eGFR calculator available at:[email or web address]-Linda Hospital [address] [place] [address] ([phone] Performed By: #### C DP, CMPX, CRP, SED, GLYHGB ####[address] [place] [address] Anion gap 14 mmol/L Normal 9-17 [facility] Comment on above: Performed By: #### C DP, CMPX, CRP, SED, GLYHGB ####[address] [place] [address] Calcium 8.2 mg/dL Low 8.6-10.4 [facility] Comment on above: Performed By: #### C DP, CMPX, CRP, SED, GLYHGB ####[address] [address] Chloride 101 mmol/L Normal 98-107 [facility] Comment on above: Performed By: #### C DP, CMPX, CRP, SED, GLYHGB ####[address] [address] CO2 21 mmol/L Normal 20-31 [facility] Comment on above: Performed By: #### C DP, CMPX, CRP, SED, GLYHGB ####[address] [address] Creatinine 1.16 mg/dL Normal 0.70-1.20 [facility] Comment on above: Performed By: #### C DP, CMPX, CRP, SED, GLYHGB ####[address] [address] eGFR (non-black) mL/min/{1.73_m2} Normal >60 [facility] Comment on above: Performed By: #### C DP, CMPX, CRP, SED, GLYHGB ####[address] [address] Glucose mass conc 153 mg/dL High 70-99 [facility] Comment on above: Performed By: #### C DP, CMPX, CRP, SED, GLYHGB ####[address] [address] Potassium molar conc 4.0 mmol/L Normal 3.7-5.3 [facility] Comment on above: Performed By: #### C DP, CMPX, CRP, SED, GLYHGB ####[address] [address] Sodium 136 mmol/L Normal 135-144 [facility] Comment on above: Performed By: #### C DP, CMPX, CRP, SED, GLYHGB ####[address] [address] Urea nitrogen 18 mg/dL Normal 6-20 [facility] Comment on above: Performed By: #### C DP, CMPX, CRP, SED, GLYHGB ####[address] [address] BUN/CRE Ratio NOT REPORTED Normal -20 [facility] Comment on above: Performed By: #### C DP, CMPX, CRP, SED, GLYHGB ####[address] [address] Staging: NOT REPORTED Normal [facility] Comment on above: Performed By: #### C DP, CMPX, CRP, SED, GLYHGB ####[address] [address] C-Reactive Proteinon 018 C reactive protein (CRP) 55.5 mg/L High 0.0-5.0 [facility] Comment on above: Result Comment: [address] [address] Performed By: #### C DP, CMPX, CRP, SED, GLYHGB ####[address] [address] CBC with Diffon 04-11-2017 Abs. Basophil <0.03 Normal 0.00-0.20 [facility] Comment on above: Performed By: #### C DP, CMPX, CRP, SED, GLYHGB ####[address] [address] Abs.Neutrophil (Seg) 5.04 k/uL Normal 1.50-8.10 [facility] Comment on above: Performed By: #### C DP, CMPX, CRP, SED, GLYHGB ####[address] [address] Basophils/100 WBC Auto (Bld) 0 % Normal 0-2 [facility] Comment on above: Performed By: #### C DP, CMPX, CRP, SED, GLYHGB ####[address] [address] Eosinophils 0.24 10*3/uL Normal 0.00-0.44 [facility] Comment on above: Performed By: #### C DP, CMPX, CRP, SED, GLYHGB ####[address] [address] Eosinophils/100 leukocytes 3 % Normal 1-4 [facility] Comment on above: Performed By: #### C DP, CMPX, CRP, SED, GLYHGB ####[address] [address] Erythrocyte distribution width Auto Ratio (RBC) 14.8 % High 11.8-14.4 [facility] Comment on above: Performed By: #### C DP, CMPX, CRP, SED, GLYHGB ####[address] [address] Erythrocyte morphology ANISOCYTOSIS PRESENT Normal [facility] Comment on above: Result Comment: [address] [address] Performed By: #### C DP, CMPX, CRP, SED, GLYHGB ####[address] [address] Erythrocytes (RBC) 3.36 10*6/uL Low 4.21-5.77 [facility] Comment on above: Performed By: #### C DP, CMPX, CRP, SED, GLYHGB ####[address] [address] Granulocytes/100 WBC (Bld) 0.09 k/uL Normal 0.00-0.30 [facility] Comment on above: Performed By: #### C DP, CMPX, CRP, SED, GLYHGB ####[address] [address] Hematocrit (HCT) 28.8 % Low 40.7-50.3 [facility] Comment on above: Performed By: #### C DP, CMPX, CRP, SED, GLYHGB ####[address] [address] Hemoglobin mass conc (Bld) 8.8 g/dL Low 13.0-17.0 [facility] Comment on above: Performed By: #### C DP, CMPX, CRP, SED, GLYHGB ####[address] [address] Immature granulocytes #/vol (Bld) 1 % High 0 [facility] Comment on above: Performed By: #### C DP, CMPX, CRP, SED, GLYHGB ####[address] [address] Lymphocytes 1.73 10*3/uL Normal 1.10-3.70 [facility] Comment on above: Performed By: #### C DP, CMPX, CRP, SED, GLYHGB ####[address] [address] Lymphocytes/100 leukocytes 23 % Low 24-43 [facility] Comment on above: Performed By: #### C DP, CMPX, CRP, SED, GLYHGB ####[address] [address] MCH 26.2 pg Normal 25.2-33.5 [facility] Comment on above: Performed By: #### C DP, CMPX, CRP, SED, GLYHGB ####[address] [address] MCHC mass conc (RBC) 30.6 g/dL Normal 28.4-34.8 [facility] Comment on above: Performed By: #### C DP, CMPX, CRP, SED, GLYHGB ####[address] [address] MCV 85.7 fL Normal 82.6-102.9 [facility] Comment on above: Performed By: #### C DP, CMPX, CRP, SED, GLYHGB ####[address] [address] Monocytes 0.56 10*3/uL Normal 0.10-1.20 [facility] Comment on above: Performed By: #### C DP, CMPX, CRP, SED, GLYHGB ####[address] [address] Monocytes/100 leukocytes 7 % Normal 3-12 [facility] Comment on above: Performed By: #### C DP, CMPX, CRP, SED, GLYHGB ####[address] [address] Neutrophil (Seg) 66 % High 36-65 [facility] Comment on above: Performed By: #### C DP, CMPX, CRP, SED, GLYHGB ####[address] [address] Platelet mean volume (PMV) 9.9 fL Normal 8.1-13.5 [facility] Comment on above: Performed By: #### C DP, CMPX, CRP, SED, GLYHGB ####[address] [address] Platelets 264 10*3/uL Normal 138-453 [facility] Comment on above: Performed By: #### C DP, CMPX, CRP, SED, GLYHGB ####[address] [address] WBC (Leukocytes) 7.7 10*3/uL Normal 3.5-11.3 [facility] Comment on above: Performed By: #### C DP, CMPX, CRP, SED, GLYHGB ####[address] [address] Auto Diff Performed NOT REPORTED Normal [facility] Comment on above: Performed By: #### C DP, CMPX, CRP, SED, GLYHGB ####[address] [address] Platelets NOT REPORTED Normal [facility] Comment on above: Performed By: #### C DP, CMPX, CRP, SED, GLYHGB ####[address] [address] WBC Morphology NOT REPORTED Normal [facility] Comment on above: Performed By: #### C DP, CMPX, CRP, SED, GLYHGB ####[address] [address] Hemoglobin A1Con 04-11-2017 Glucose mass conc 315 mg/dL Normal [facility] Comment on above: Result Comment: The ADA and AACC recommend providing the estimated average glucose result to permit better patient understanding of their HBA1c result.[address] [id number] ([phone] Performed By: #### C DP, CMPX, CRP, SED, GLYHGB ####[address] [place], [place] [address] Hemoglobin A1c/Hemoglobin.total mass fraction (Bld) 12.6 % High 4.0-6.0 [facility] Comment on above: Performed By: #### C DP, CMPX, CRP, SED, GLYHGB ####[address] [place], [place] [id number] Plan of Careon 04-11-2017 HIM IP Note OR Cleaner And Polisher Normal [facility] HIM IP Note OR Cleaner And Polisher Normal [facility] HIM IP Note OR Cleaner And Polisher Normal [facility] HIM IP Note OR Cleaner And Polisher Normal [facility] Progress Noteon 04-11-2017 HIM IP Note OR Cleaner And Polisher Normal [facility] HIM IP Note OR Cleaner And Polisher Normal [facility] HIM IP Note OR Cleaner And Polisher Normal [facility] HIM IP Note OR Cleaner And Polisher Normal [facility] Consulton 04-10-2017 HIM IP Note OR Cleaner And Polisher Normal [facility] Cult,Urine,Cathon 04-10-2017 Cult,Urine,Cath Specimen Description .CATHETERIZED URINE Special Requests NOT REPORTED Culture PRESUMPTIVE ID: LEO ALBICANS >[id number] CFU/ML Report Status FINAL 04/10/2017 [facility] Comment on above: Performed By: #### C DP, CMPX, CRP, SED, GLYHGB ####[facility] [place], [place] [address] Influenza A + B, PCRon 04-10 Influenza A + B, PCR Specimen Descriptio n .NASOPHARYNGEAL SWABSpecial Requests NOT REPORTEDDirect Exam NEGATIVE: Influenza A and B RNA not detected by nucleic acid amplification. The results obtained should be interpreted in conjunction with clinical findings and other laboratory markers. The performance characterisitics of this molecular test were validated by the molecular microbiology department of [facility] [employer]. Report Status FINAL 04/10/2017 [facility] Comment on above: Performed By: #### C DP, CMPX, CRP, SED, GLYHGB ####[facility] [id number] [place], [place] [id number] OPERATIVE REPORTon 8 OPERATIVE REPORT [facility] [address] [place] [address] OPERATIVE REPORTPATIENT NAME: GANGA STINSON : 1960[facility] REC NO: [id number] ROOM: [address] [place] [address] NO: [id number] ADMIT DATE: 04/09/2017PROVIDER: William Foster-JudgeDATE OF PROCEDURE: [...] for recovery. The patient has a primary energy specialist, Dr. 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 The department of Infectious Disease,Internal Medicine, and specialty medicine services will provide care duringthe inpatient admission. He will return to the care of Dr. Min [place], [place], upon discharge.INDICATIONS FOR OPERATION: This is [...] He would follow up with his usual energy specialist on anoutpatient basis. The departments of Internal Medicine and InfectiousDisease will guide our care in the interim. Cultures should be availablewith sensitivities in approximately 72 hours and consider dischargeplanning then.WILLIAM FOSTER-JUDGED: 04/10/2017 15:31:53 MS/V_SSROR_IJob#: [id number] Doc#: [id number]: Yakov iMn [facility] Department of Infectious Disease Internal Medicine Normal [facility] Plan of Careon 04-10-2017 HIM IP Note OR Cleaner And Polisher Normal [facility] HIM IP Note OR Cleaner And Polisher Normal [facility] Progress Noteon 04-10-2017 HIM IP Note OR Cleaner And Polisher Normal [facility] HIM IP Note OR Cleaner And Polisher Normal [facility] XR ANKLE RIGHT STANDARDon XR ANKLE [...] Bakerigned by:Roberto Carlos Cavazos MD04/09/17inal result Normal [facility] C-Reactive Proteinon 018 C reactive protein (CRP) 114.3 mg/L High 0.0-5.0 [facility] Comment on above: Result Comment: [employer] [address] [place], [place] [id number] ([phone] Performed By: #### C DP, CMPX, CRP, SED, GLYHGB ####[email or web address] [place] [address] CBC with Diffon 04-09-2017 Abs. Basophil <0.03 Normal 0.00-0.20 [facility] Comment on above: Performed By: #### C DP, CMPX, CRP, SED, GLYHGB ####[address] [address] Abs.Neutrophil (Seg) 5.95 k/uL Normal 1.50-8.10 [facility] Comment on above: Performed By: #### C DP, CMPX, CRP, SED, GLYHGB ####[address] [address] Basophils/100 WBC Auto (Bld) 0 % Normal 0-2 [facility] Comment on above: Performed By: #### C DP, CMPX, CRP, SED, GLYHGB ####[address] [address] Eosinophils 0.11 10*3/uL Normal 0.00-0.44 [facility] Comment on above: Performed By: #### C DP, CMPX, CRP, SED, GLYHGB ####[address] [address] Eosinophils/100 leukocytes 1 % Normal 1-4 [facility] Comment on above: Performed By: #### C DP, CMPX, CRP, SED, GLYHGB ####[address] [address] Erythrocyte distribution width Auto Ratio (RBC) 15.0 % High 11.8-14.4 [facility] Comment on above: Performed By: #### C DP, CMPX, CRP, SED, GLYHGB ####[address] [address] Erythrocyte morphology ANISOCYTOSIS PRESENT Normal [facility] Comment on above: Result Comment: [address] [place] [address] Performed By: #### C DP, CMPX, CRP, SED, GLYHGB ####[address] [address] Erythrocytes (RBC) 3.50 10*6/uL Low 4.21-5.77 [facility] Comment on above: Performed By: #### C DP, CMPX, CRP, SED, GLYHGB ####[place] [address] Granulocytes/100 WBC (Bld) 0.09 k/uL Normal 0.00-0.30 [facility] Comment on above: Performed By: #### C DP, CMPX, CRP, SED, GLYHGB ####[address] [address] Hematocrit (HCT) 29.9 % Low 40.7-50.3 [facility] Comment on above: Performed By: #### C DP, CMPX, CRP, SED, GLYHGB ####[address] [address] Hemoglobin mass conc (Bld) 9.0 g/dL Low 13.0-17.0 [facility] Comment on above: Performed By: #### C DP, CMPX, CRP, SED, GLYHGB ####[address] [address] Immature granulocytes #/vol (Bld) 1 % High 0 [facility] Comment on above: Performed By: #### C DP, CMPX, CRP, SED, GLYHGB ####[address] [address] Lymphocytes 1.60 10*3/uL Normal 1.10-3.70 [facility] Comment on above: Performed By: #### C DP, CMPX, CRP, SED, GLYHGB ####[address] [address] Lymphocytes/100 leukocytes 19 % Low 24-43 [facility] Comment on above: Performed By: #### C DP, CMPX, CRP, SED, GLYHGB ####[address] [address] MCH 25.7 pg Normal 25.2-33.5 [facility] Comment on above: Performed By: #### C DP, CMPX, CRP, SED, GLYHGB ####[address] [address] MCHC mass conc (RBC) 30.1 g/dL Normal 28.4-34.8 [facility] Comment on above: Performed By: #### C DP, CMPX, CRP, SED, GLYHGB ####[address] [address] MCV 85.4 fL Normal 82.6-102.9 [facility] Comment on above: Performed By: #### C DP, CMPX, CRP, SED, GLYHGB ####[address] [address] Monocytes 0.53 10*3/uL Normal 0.10-1.20 [facility] Comment on above: Performed By: #### C DP, CMPX, CRP, SED, GLYHGB ####[address] [address] Monocytes/100 leukocytes 6 % Normal 3-12 [facility] Comment on above: Performed By: #### C DP, CMPX, CRP, SED, GLYHGB ####[address] [address] Neutrophil (Seg) 73 % High 36-65 [facility] Comment on above: Performed By: #### C DP, CMPX, CRP, SED, GLYHGB ####[address] [address] Platelet mean volume (PMV) 9.6 fL Normal 8.1-13.5 [facility] Comment on above: Performed By: #### C DP, CMPX, CRP, SED, GLYHGB ####[address] [address] Platelets 224 10*3/uL Normal 138-453 [facility] Comment on above: Performed By: #### C DP, CMPX, CRP, SED, GLYHGB ####[address] [address] WBC (Leukocytes) 8.3 10*3/uL Normal 3.5-11.3 [facility] Comment on above: Performed By: #### C DP, CMPX, CRP, SED, GLYHGB ####[address] [address] Auto Diff Performed NOT REPORTED Normal [facility] Comment on above: Performed By: #### C DP, CMPX, CRP, SED, GLYHGB ####[address] [address] Platelets NOT REPORTED Normal [facility] Comment on above: Performed By: #### C DP, CMPX, CRP, SED, GLYHGB ####[address] [address] WBC Morphology NOT REPORTED Normal [facility] Comment on above: Performed By: #### C DP, CMPX, CRP, SED, GLYHGB ####[address] [address] Comp Metabolic Pr/rfx MGon 0 - (cont.) Normal [facility] Comment on above: Result Comment: Aver age GFR for 50-59 years old: 93 mL/min/1.73sq mChronic Kidney Disease: <60 mL/min/1.73sq mKidney failure: <15 mL/min/1.73sq meGFR calculated using average adult body mass. Additional eGFR calculator available at:[email or web address]_[email or web address]-Linda Hospital [address] [place] [address] Performed By: #### C DP, CMPX, CRP, SED, GLYHGB ####[address] [address] Alanine aminotransferase (ALT) 9 U/L Normal 5-41 [facility] Comment on above: Performed By: #### C DP, CMPX, CRP, SED, GLYHGB ####[address] [address] Albumin 2.8 g/dL Low 3.5-5.2 [facility] Comment on above: Performed By: #### C DP, CMPX, CRP, SED, GLYHGB ####[facility] [place] [address] Albumin/Globulin Ratio 0.7 {ratio} Low 1.0-2.5 [facility] Comment on above: Performed By: #### C DP, CMPX, CRP, SED, GLYHGB ####[address] [address] Alkaline Phos 57 U/L Normal 40-129 [facility] Comment on above: Performed By: #### C DP, CMPX, CRP, SED, GLYHGB ####[address] [address] Anion gap 13 mmol/L Normal 9-17 [facility] Comment on above: Performed By: #### C DP, CMPX, CRP, SED, GLYHGB ####[address] [address] Aspartate aminotransferase (AST) 9 U/L Normal <40 [facility] Comment on above: Performed By: #### C DP, CMPX, CRP, SED, GLYHGB ####[address] [address] Bilirubin Ql (U) 0.26 mg/dL Low 0.3-1.2 [facility] Comment on above: Performed By: #### C DP, CMPX, CRP, SED, GLYHGB ####[address] [address] Calcium 8.4 mg/dL Low 8.6-10.4 [facility] Comment on above: Performed By: #### C DP, CMPX, CRP, SED, GLYHGB ####[address] [address] Chloride 99 mmol/L Normal 98-107 [facility] Comment on above: Performed By: #### C DP, CMPX, CRP, SED, GLYHGB ####[address] [address] CO2 21 mmol/L Normal 20-31 [facility] Comment on above: Performed By: #### C DP, CMPX, CRP, SED, GLYHGB ####[address] [address] Creatinine 1.13 mg/dL Normal 0.70-1.20 [facility] Comment on above: Performed By: #### C DP, CMPX, CRP, SED, GLYHGB ####[address] [address] eGFR (non-black) mL/min/{1.73_m2} Normal >60 [facility] Comment on above: Performed By: #### C DP, CMPX, CRP, SED, GLYHGB ####[address] [place] [address] Glucose mass conc 267 mg/dL High 70-99 [facility] Comment on above: Performed By: #### C DP, CMPX, CRP, SED, GLYHGB ####[address] [place] [address] Potassium molar conc 4.3 mmol/L Normal 3.7-5.3 [facility] Comment on above: Performed By: #### C DP, CMPX, CRP, SED, GLYHGB ####[address] [address] Protein 7.0 g/dL Normal 6.4-8.3 [facility] Comment on above: Performed By: #### C DP, CMPX, CRP, SED, GLYHGB ####[address] [address] Sodium 133 mmol/L Low 135-144 [facility] Comment on above: Performed By: #### C DP, CMPX, CRP, SED, GLYHGB ####[address] [address] Urea nitrogen 22 mg/dL High 6-20 [facility] Comment on above: Performed By: #### C DP, CMPX, CRP, SED, GLYHGB ####[address] [address] BUN/CRE Ratio NOT REPORTED Normal 9-20 [facility] Comment on above: Performed By: #### C DP, CMPX, CRP, SED, GLYHGB ####[address] [address] Staging: NOT REPORTED Normal [facility] Comment on above: Performed By: #### C DP, CMPX, CRP, SED, GLYHGB ####[address] [address] Consulton 04-09-2017 HIM IP Note OR Cleaner And Polisher Normal [facility] HIM IP Note OR Cleaner [employer] Polisher Normal [facility] HIM IP Note OR Cleaner [employer]isher Normal [facility] Flu A/B Ag Detectionon 04-09 Flu A/B Ag Detection Specimen Descriptio n .NASOPHARYNGEAL SWABSpecial Requests NOT REPORTEDDirect Exam PRESUMPTIVE NEGATIVE for Influenza A + B antigens. PCR testing to confirm this result is available upon request. Specimen will be saved in the laboratory for 7 days. Please call [phone] if PCR testing is indicated. Report Status FINAL 04/09/2017 Normal [facility] Comment on above: Performed By: #### C DP, CMPX, CRP, SED, GLYHGB ####[facility] [address] [place] [address] History and Physicalon 04-09 [facility] IP Note OR Cleaner [employer] Polisher Normal [facility] MRI FOOT RIGHT W WO CONTRAST [...] suspected despite a lack of definitive precontrast C4ospobidh changes.Large ulcer overlying the lateral malleolus with underlying osteomyelitis.Interpreted by:SAMMI Tellezigned by:Jesusita Mock MD04/09/17inal result Normal [facility] Op Noteon 04-09-2017 HIM IP Note OR Cleaner And Polisher Normal [facility] Plan of Careon 04-09-2017 HIM IP Note OR Cleaner And Polisher Normal [facility] HIM IP Note OR Cleaner And Polisher Normal [facility] Progress Noteon 04-09-2017 HIM IP Note OR Cleaner And Polisher Normal [facility] HIM IP Note OR Cleaner And Polisher Normal [facility] HIM IP Note OR Cleaner [employer]isher Normal [facility] RSV Ag Detectionon 8 RSV Ag Detection Specimen Description .NASOPHARYNGEAL SWABSpecial Requests NOT REPORTEDDirect Exam Presumptive negative for the presence of RSV antigen. PCR testing to confirm this result is available upon request. Specimen will be saved in the laboratory for 7 days. Please call [phone] if PCR testing is indicated. Report Status FINAL 04/09/2017 Normal [facility] Comment on above: Performed By: #### C DP, CMPX, CRP, SED, GLYHGB ####[email or web address] [place] [id number] Sedimentation Rateon 018 Sedimentation Rate 80 mm High 0-10 [facility] Comment on above: Result Comment: [employer] [address] [place] [address] Performed By: #### C DP, CMPX, CRP, SED, GLYHGB ####[facility] [address] [place] [address] XR FOOT RIGHT STANDARDon XR FOOT RIGHT [...] by:SAMMI Tellezigned by:Jesusita Mock MD04/09/17inal result Normal [facility] Vital Signs Date Time Vital Sign Value Performing Clinician Facility 10-02-2024 13:45-0400 Diastolic blood pressure 63 mm[Hg] Fidel Abbott MD Work Phone: [facility] 10-02-2024 13:45-0400 Heart rate 55 /min Fidel Abbott MD Work Phone: [facility] 10-02-2024 13:45-0400 Respiratory rate 16 /min Fidel Abbott MD Work Phone: [facility] 10-02-2024 13:45-0400 SaO2% (BldA) [Mass fraction] 97 % Fidel Abbott MD Work Phone: [facility] 10-02-2024 13:45-0400 Systolic blood pressure 108 mm[Hg] Fidel Abbott MD Work Phone: [facility] 10-02-2024 13:00-0400 Inhaled oxygen flow rate 6 L/min Fidel Abbott MD Work Phone: [facility] 10-02-2024 10:58-0400 Body height 180.34 cm Fidel Abbott MD Work Phone: [facility] 10-02-2024 10:58-0400 Body temperature 98.4 [degF] Fidel Abbott MD Work Phone: [facility] 10-02-2024 10:58-0400 Body weight 102.05 kg Fidel Abbott MD Work Phone: [facility] 08-30-2024 12:17-0400 Body temperature 96.7 [degF] Fidel Abbott MD Work Phone: [facility] 08-30-2024 12:17-0400 Diastolic blood pressure 42 mm[Hg] Fidel Abbott MD Work Phone: [facility] 08-30-2024 12:17-0400 Heart rate 56 /min Fidel Abbott MD Work Phone: [facility] 08-30-2024 12:17-0400 SaO2% (BldA) [Mass fraction] 97 % Fidel Abbott MD Work Phone: [facility] 08-30-2024 12:17-0400 Systolic blood pressure 98 mm[Hg] Fidel Abbott MD Work Phone: [facility] 08-15-2024 11:19-0400 Body height 180.34 cm Fidel Abbott MD Work Phone: [facility] 08-15-2024 11:19-0400 Body mass index (BMI) [Ratio] 31.4 kg/m2 Fidel Abbott MD Work Phone: [facility] 08-15-2024 11:19-0400 Body weight 102.05 kg Fidel Abbott MD Work Phone: [facility] 08-15-2024 10:28-0400 Body temperature 98.1 [degF] Fidel Abbott MD Work Phone: [facility] 08-15-2024 10:28-0400 Diastolic blood pressure 70 mm[Hg] Fidel Abbott MD Work Phone: [facility] 08-15-2024 10:28-0400 Heart rate 71 /min Fidel Abbott MD Work Phone: [facility] 08-15-2024 10:28-0400 Respiratory rate 16 /min Fidel Abbott MD Work Phone: [facility] 08-15-2024 10:28-0400 Systolic blood pressure 134 mm[Hg] Fidel Abbott MD Work Phone: [facility] 07-31-2024 10:49-0400 Body height 180.3 cm Fidel Abbott MD Work Phone: [facility] 07-31-2024 10:49-0400 Body temperature 97.5 [degF] Fidel Abbott MD Work Phone: [facility] 07-31-2024 10:49-0400 Diastolic blood pressure 70 mm[Hg] Fidel Abbott MD Work Phone: [facility] 07-31-2024 10:49-0400 Heart rate 57 /min Fidel Abbott MD Work Phone: [facility] 07-31-2024 10:49-0400 Respiratory rate 18 /min Fidel Abbott MD Work Phone: [facility] 07-31-2024 10:49-0400 SaO2% (BldA) [Mass fraction] 98 % Fidel Abbott MD Work Phone: [facility] 07-31-2024 10:49-0400 Systolic blood pressure 142 mm[Hg] Fidel Abbott MD Work Phone: [facility] 03-14-2024 11:23-0500 Body height 180.34 cm Fidel Abbott MD Work Phone: [facility] 03-14-2024 11:23-0500 Body mass index (BMI) [Ratio] 31.4 kg/m2 Fidel Abbott MD Work Phone: [facility] 03-14-2024 11:23-0500 Body weight 102.05 kg Fidel Abbott MD Work Phone: [facility] 03-14-2024 10:50-0500 Body temperature 98.2 [degF] Fidel Abbott MD Work Phone: [facility] 03-14-2024 10:50-0500 Diastolic blood pressure 67 mm[Hg] Fidel Abbott MD Work Phone: [facility] 03-14-2024 10:50-0500 Heart rate 61 /min Fidel Abbott MD Work Phone: [facility] 03-14-2024 10:50-0500 Respiratory rate 18 /min Fidel Abbott MD Work Phone: [facility] 03-14-2024 10:50-0500 Systolic blood pressure 128 mm[Hg] Fidel Abbott MD Work Phone: [facility] 02-08-2024 11:44-0500 Body height 180.34 cm Fidel Abbott MD Work Phone: [facility] 02-08-2024 11:44-0500 Body mass index (BMI) [Ratio] 31.4 kg/m2 Fidel Abbott MD Work Phone: [facility] 02-08-2024 11:44-0500 Body weight 102.05 kg Fidel Abbott MD Work Phone: [facility] 02-08-2024 10:51-0500 Body temperature 98.1 [degF] Fidel Abbott MD Work Phone: [facility] 02-08-2024 10:51-0500 Diastolic blood pressure 66 mm[Hg] Fidel Abbott MD Work Phone: [facility] 02-08-2024 10:51-0500 Heart rate 64 /min Fidel Abbott MD Work Phone: [facility] 02-08-2024 10:51-0500 Respiratory rate 18 /min Fidel Abbott MD Work Phone: [facility] 02-08-2024 10:51-0500 Systolic blood pressure 125 mm[Hg] Fidel Abbott MD Work Phone: [facility] 01-20-2024 11:52-0400 Body height 180.3 cm Fidel Abbott MD Work Phone: [facility] 01-20-2024 11:52-0400 Body temperature 97.5 [degF] Fidel Abbott MD Work Phone: [facility] 01-20-2024 11:52-0400 Diastolic blood pressure 58 mm[Hg] Fidel Abbott MD Work Phone: [facility] 01-20-2024 11:52-0400 Heart rate 57 /min Fidel Abbott MD Work Phone: [facility] 01-20-2024 11:52-0400 Respiratory rate 20 /min Fidel Abbott MD Work Phone: [facility] 01-20-2024 11:52-0400 SaO2% (BldA) [Mass fraction] 99 % Fidel Abbott MD Work Phone: [facility] 01-20-2024 11:52-0400 Systolic blood pressure 130 mm[Hg] Fidel Abbott MD Work Phone: [facility] 11-18-2023 13:47-0400 Body height 180.3 cm Fidel Abbott MD Work Phone: [facility] 11-18-2023 13:47-0400 Body temperature 97.5 [degF] Fidel Abbott MD Work Phone: [facility] 11-18-2023 13:47-0400 Diastolic blood pressure 70 mm[Hg] Fidel Abbott MD Work Phone: [facility] 11-18-2023 13:47-0400 Heart rate 60 /min Fidel Abbott MD Work Phone: [facility] 11-18-2023 13:47-0400 Respiratory rate 18 /min Fidel Abbott MD Work Phone: [facility] 11-18-2023 13:47-0400 SaO2% (BldA) [Mass fraction] 97 % Fidel Abbott MD Work Phone: [facility] 11-18-2023 13:47-0400 Systolic blood pressure 160 mm[Hg] Fidel Abbott MD Work Phone: [facility] 06-04-2023 13:27-0500 Diastolic blood pressure 58 mm[Hg] MD Fidel Abbott Work Phone: [facility] 06-04-2023 13:27-0500 Heart rate 60 /min MD Fidel Abbott Work Phone: [facility] 06-04-2023 13:27-0500 Respiratory rate 12 /min MD Fidel Abbott Work Phone: [facility] 06-04-2023 13:27-0500 SaO2% (BldA) [Mass fraction] 98 % MD Fidel Abbott Work Phone: [facility] 06-04-2023 13:27-0500 Systolic blood pressure 135 mm[Hg] MD Fidel Abbott Work Phone: [facility] 06-04-2023 10:49-0500 Body height 180.34 cm MD Fidel Abbott Work Phone: [facility] 06-04-2023 10:49-0500 Body temperature 98 [degF] MD Fidel Abbott Work Phone: [facility] 06-04-2023 10:49-0500 Body weight 114.3 kg MD Fidel Abbott Work Phone: [facility] 05-06-2023 10:40-0500 Body height 177.8 cm Jonathan Bah DPM Work Phone: [facility] 05-06-2023 10:40-0500 Body mass index (BMI) [Ratio] 35.87 kg/m2 Jonathan Bah DPM Work Phone: [facility] 05-06-2023 10:40-0500 Body weight 113.4 kg Jonathan Bah DPM Work Phone: [facility] 05-06-2023 10:40-0500 Diastolic blood pressure 80 mm[Hg] Jonathan Bah DPM Work Phone: [facility] 05-06-2023 10:40-0500 Heart rate 79 /min Jonathan Bah DPM Work Phone: [facility] 05-06-2023 10:40-0500 Systolic blood pressure 133 mm[Hg] Jonathan Bah DPM Work Phone: [facility] 05-04-2023 13:06-0500 Body mass index (BMI) [Ratio] 34.8 kg/m2 MD Fidel Abbott Work Phone: [facility] 05-04-2023 12:48-0500 Body height 180.34 cm MD Fidel Abbott Work Phone: [facility] 05-04-2023 12:48-0500 Body weight 113.39 kg MD Fidel Abbott Work Phone: [facility] 05-04-2023 11:25-0500 Body temperature 97.3 [degF] MD Fidel Abbott Work Phone: [facility] 05-04-2023 11:25-0500 Diastolic blood pressure 78 mm[Hg] MD Fidel Abbott Work Phone: [facility] 05-04-2023 11:25-0500 Heart rate 64 /min MD Fidel Abbott Work Phone: [facility] 05-04-2023 11:25-0500 Respiratory rate 18 /min MD Fidel Abbott Work Phone: [facility] 05-04-2023 11:25-0500 Systolic blood pressure 177 mm[Hg] MD Fidel Abbott Work Phone: [facility] 11-09-2022 13:10-0400 Blood Pressure Location Jovanny VILLA [facility] 11-09-2022 13:10-0400 Diastolic blood pressure 72 mm[Hg] Jovanny VILLA [facility] 11-09-2022 13:10-0400 Heart rate 78 /min Jovanny VILLA [facility] 11-09-2022 13:10-0400 Systolic blood pressure 148 mm[Hg] Jovanny VILLA [facility] 06-26-2022 14:00-0400 Body temperature 97.81 [degF] Eli Pimentel MD Work Phone: [facility] [employer] [facility] 06-26-2022 14:00-0400 Diastolic blood pressure 62 mm[Hg] Eli Pimentel MD Work Phone: [facility] [employer] [facility] 06-26-2022 14:00-0400 Heart rate 70 /min Eli Pimentel MD Work Phone: [facility] 06-26-2022 14:00-0400 Respiratory rate 18 /min Eli Pimentel MD Work Phone: [employer] 06-26-2022 14:00-0400 SaO2% (BldA) [Mass fraction] 95 % Eli Pimentel MD Work Phone: [employer] 06-26-2022 14:00-0400 Systolic blood pressure 144 mm[Hg] Eli Pimentel MD Work Phone: [facility] [employer] 06-26-2022 05:30-0400 Body mass index (BMI) [Ratio] 34.28 kg/m2 Eli Pimentel MD Work Phone: [facility] 06-26-2022 05:30-0400 Body weight 111.49 kg Eli Pimentel MD Work Phone: [facility] 06-25-2022 04:54-0400 Body height 180.3 cm Eli Pimentel MD Work Phone: [facility] 06-02-2022 12:14-0500 Body height 172.72 cm MD Fidel Abbott Work Phone: [facility] 06-02-2022 12:14-0500 Body mass index (BMI) [Ratio] 41 kg/m2 MD Fidel Abbott Work Phone: [facility] 06-02-2022 12:14-0500 Body weight 122.46 kg MD Fidel Abbott Work Phone: [facility] 06-02-2022 09:52-0500 Body temperature 97 [degF] MD Fidel Abbott Work Phone: [facility] 06-02-2022 09:52-0500 Diastolic blood pressure 73 mm[Hg] MD Fidel Abbott Work Phone: [facility] 06-02-2022 09:52-0500 Heart rate 76 /min MD Fidel Abbott Work Phone: [facility] 06-02-2022 09:52-0500 Systolic blood pressure 155 mm[Hg] MD Fidel Abbott Work Phone: [facility] 03-03-2022 12:06-0500 Body height 180.34 cm MD Fidel Abbott Work Phone: [facility] 03-03-2022 12:06-0500 Body mass index (BMI) [Ratio] 34.8 kg/m2 MD Fidel Abbott Work Phone: [facility] 03-03-2022 12:06-0500 Body weight 113.39 kg MD Fiedl Abbott Work Phone: [facility] 03-03-2022 11:37-0500 Body temperature 97.7 [degF] MD Fidel Abbott Work Phone: [facility] 03-03-2022 11:37-0500 Diastolic blood pressure 56 mm[Hg] MD Fidel Abbott Work Phone: [facility] 03-03-2022 11:37-0500 Heart rate 68 /min MD Fidel Abbott Work Phone: [facility] 03-03-2022 11:37-0500 Respiratory rate 18 /min MD Fidel Abbott Work Phone: [facility] 03-03-2022 11:37-0500 Systolic blood pressure 122 mm[Hg] MD Fidel Abbott Work Phone: [facility] Encounters Encounter Date Encounter Type Care Provider Facility Start: 11-22-2024 End: 11-22-2024 Refill Fidel Abbott MD Work Phone: [facility] Comment on above: Primary hypertension ; Benign hypertension ; Type 2 diabetes mellitus with hyperglycemia, without long-term current use of insulin (HCC); Dyslipidemia Start: 11-01-2024 End: 11-02-2024 Refill Fidel Abbott MD Work Phone: [facility] Comment on above: Type 2 diabetes ez itus with hyperglycemia, without long-term current use of insulin (HCC) Start: 10-10-2024 ambulatory Fidel Abbott Facility:[facility] Start: 10-02-2024 End: 10-03-2024 External Result Encounter Cathy Brar MD Work Phone: [facility] External Department Unsolicited Start: 10-02-2024 End: 10-03-2024 External Result Encounter Cathy Edwards MD Work Phone: [facility] External Department Unsolicited Start: 10-02-2024 End: 10-02-2024 Admission to same day surgery center Cathy Brar [facility] Start: 10-02-2024 End: 10-02-2024 ambulatory Fidel Abbott MD Work Phone: [facility] Work Phone: Start: 09-26-2024 End: 09-26-2024 [...] encounter procedure Fidel Abbott MD Work Phone: [facility] Work Phone: Start: 08-30-2024 End: 08-30-2024 ambulatory Fidel Abbott MD Work Phone: [facility] Work Phone: Start: 08-15-2024 Registered Recurring Fidel dubose MD Work Phone: [facility] [place] Work Phone: Start: 08-10-2024 End: 08-10-2024 Clinisync Result Encounter Generic External Data Provider [facility] External Department Unsolicited Start: 08-10-2024 End: 08-10-2024 Clinisync Result Encounter Generic External Data Provider [facility] External Department Unsolicited Start: 07-31-2024 End: 07-31-2024 Bamboo flowsheet Fidel Abbott MD Work Phone: [facility] Start: 07-31-2024 End: 07-31-2024 Bamboo flowsheet Fidel Abbott MD Work Phone: [facility] Start: 07-31-2024 End: 07-31-2024 Office outpatient visit 25 minutes Fidel Abbott MD Work Phone: [facility] Comment on above: Type 2 diabetes ez itus with hyperglycemia, without long-term current use of insulin ([facility]) (Primary Dx); Benign hypertension ([facility]); Major depressive disorder, recurrent episode, mild (HCC) ([facility]); Incontinence overflow, urine; Chronic superficial 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; Urticaria; Pruritus; Annual physical exam; Chronic kidney disease, stage 3a (HCC) ([facility]); Class 2 severe obesity due to excess calories with serious comorbidity and body mass index (BMI) of 36.0 to 36.9 in adult ([facility]); Type 2 diabetes mellitus with other specified complication; Hyperlipidemia, unspecified (CMS/HCC); Pressure ulcer of right heel, unstageable ([facility]); Type 2 diabetes mellitus with other skin ulcer (CODE); Paraplegia, unspecified; Diabetes mellitus due to underlying condition with diabetic polyneuropathy ([facility]) Start: 07-31-2024 End: 07-31-2024 Patient encounter procedure Fidel Abbott MD Work Phone: [facility] Start: 07-31-2024 End: 07-31-2024 ambulatory FIDEL ABBOTT Not Available Start: 05-30-2024 End: 05-30-2024 Clinisync Result Encounter Generic External Data Provider [facility] External Department Unsolicited Start: 05-30-2024 End: 05-30-2024 Clinisync Result Encounter Generic External Data Provider [facility] External Department Unsolicited Start: 05-02-2024 ambulatory ANGIE Acuna ty:CHLOE Walls Start: 04-17-2024 End: 04-17-2024 Telephone encounter Scanning Provider External [facility] Start: 04-14-2024 End: 04-14-2024 Telephone encounter Mary Conner CMA [facility] Start: 04-06-2024 End: 04-06-2024 Telephone encounter Mary Conner CMA [facility] Start: 03-14-2024 End: 03-14-2024 ambulatory Fidel Abbott MD Work Phone: [facility] Work Phone: Start: 03-14-2024 End: 03-14-2024 Discharged Recurring Fidel Abbott MD Work Phone: [facility] [place] Work Phone: Start: 03-13-2024 End: 03-13-2024 Refill Fidel Abbott MD Work Phone: [facility] Comment on above: Pruritus Start: 03-10-2024 Non-patient / Non-visit Fidel campbell MD Work Phone: [facility] Work Phone: Start: 03-10-2024 End: 03-10-2024 [...] MD Work Phone: [facility] [place] Work Phone: Start: 02-08-2024 End: 02-08-2024 Patient encounter procedure Fidel Abbott MD Work Phone: [facility] [place] Work Phone: Start: 02-08-2024 End: 02-08-2024 ambulatory [...] Orders Only Iraj Valdivia MD Work Phone: [facility] Comment on above: Stage 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 (CMS-HCC) (Primary Dx) Start: 01-12-2024 End: 01-12-2024 Telephone encounter Scanning Provider External [facility] Start: 12-02-2023 End: 12-02-2023 Clinisync Result Encounter [...] encounter procedure Jovanny VILLA [facility] Start: 10-11-2023 End: 10-11-2023 ambulatory Khadar [facility] Start: 07-08-2023 End: 07-08-2023 ambulatory MD Fidel Abbott Work Phone: [facility] Work Phone: Start: 07-08-2023 End: 07-08-2023 Departed Referred MD Fidel Abbott Work Phone: [facility] Start: 06-04-2023 End: 06-04-2023 Admission to same day surgery center MD Fidel Abbott Work Phone: [facility] [place] Start: 05-13-2023 Telephone encounter Sandhya Grijalva [facility] [...] condition with diabetic polyneuropathy, unspecified whether intermediate project manager insulin use (CMS/HCC); Acute complete paraplegia (CMS/HCC); Acute osteomyelitis of left fibula (CMS/HCC); Foot ulcer, right, with fat layer exposed (CMS/HCC); Venous insufficiency Start: 05-04-2023 End: 05-04-2023 ambulatory MD Fidel Abbott Work Phone: [facility] Work Phone: Start: 05-04-2023 End: 05-04-2023 Discharged Recurring MD Fidel Abbott Work Phone: [facility] [place] Work Phone: Start: 11-09-2022 End: 11-09-2022 Patient encounter procedure Jovanny VILLA [facility] Start: 09-25-2022 End: 09-26-2022 ambulatory FIDEL ABBOTT [facility] Start: 09-18-2022 End: 09-21-2022 ambulatory ASHLEEKAM ERWIN [facility] Start: 09-18-2022 End: 09-20-2022 Subsequent hospital visit by physician Francisca Ultrasound Room 2 At [facility] Ultrasound Comment on above: Cauda equina syndrom e (HCC); Neurogenic bladder; Urinary retention; Urinary incontinence without sensory awareness Start: 2022 End: 2022 ambulatory [facility] Start: 07-02-2022 End: 07-03-2022 ambulatory SHELLY Geoff [facility] Start: 07-02-2022 End: 07-02-2022 Subsequent hospital visit by physician Fidel Abbott MD Work Phone: [facility] Laboratory Comment on above: Acute kidney injury (HCC); Iron deficiency anemia, unspecified iron deficiency anemia type Start: 06-22-2022 End: 06-26-2022 Evaluation and management of inpatient [facility] Start: 06-22-2022 End: 06-26-2022 Evaluation and management of inpatient Eli Pimentel MD Work Phone[facility] Comment on above: Acute kidney injury (HCC) (Primary Dx); Hyperkalemia; Iron deficiency anemia, unspecified iron deficiency anemia type Start: 06-22-2022 End: 06-22-2022 ambulatory [facility] Start: 06-22-2022 End: 06-22-2022 Subsequent hospital visit by physician Fidel Abbott MD Work Phone: [facility] EKG Comment on above: Neurogenic bladder Start: 06-02-2022 End: 06-02-2022 ambulatory MD Fidel Abbott Work Phone: [facility] Work Phone: Start: 06-02-2022 End: 06-02-2022 Discharged Recurring MD Fidel Abbott Work Phone: [facility] [place] Work Phone: Start: 03-14-2022 End: 03-15-[address] CATHY BRAR Facility:[facility] Start: 03-03-2022 End: 03-03-2022 ambulatory MD Fidel Abbott Work Phone: [facility] Work Phone: Start: 03-03-2022 End: 03-03-2022 Discharged Recurring MD Fidel Abbott Work Phone: [facility] Work Phone: Start: 02-26-2022 End: 02-27-[address] CATHY BRAR Facility:H1 Start: 05-30-2021 End: 05-31-[address] FIDEL ABBOTT Facility:H1 Start: 04-09-2017 End: 04-13-2017 Evaluation and management of inpatient MICHAELA ONTIVEROS [facility] Procedures Date Procedure Procedure Detail [...] retroperitoneal real time w/image complete Ashlee Erwin PLANT TECHNICAL SPECIALIST - GENERAL [employer] Work Phone: Start: 2022 Optical urethrotomy Jovanny VILLA Start: 07-02-2022 Basic metabolic panel calcium total Hoda jose Mondragon PLANT TECHNICAL SPECIALIST - [employer] Work Phone: Start: 06-26-2022 End: 06-26-2022 COLONOSCOPY [...] peroxidase actv qual feces 1 deter Shelly GoldersKipTripp PLANT TECHNICAL SPECIALIST - GENERAL [employer]IGHT AGENT Work Phone: Start: 06-25-2022 Cul bact xcpt [...] of packed red blood cells Shelly GoldersKipTripp PLANT TECHNICAL SPECIALIST - GENERAL [employer]ENT Work Phone: Start: 06-24-2022 Echo tthrc r-t 2d w/wom-mode compl spec&colr d Shelly GoldersKipTripp PLANT TECHNICAL SPECIALIST - [employer] Work Phone: Start: 06-24-2022 Blood typing serologic abo Shelly GoldersShea PLANT TECHNICAL SPECIALIST - GENER[employer]ENT Work Phone: Start: 06-24-2022 GLUCOSE, WHOLE BLOOD Matias Garcia MD Work Phone: Start: 06-24-2022 End: 06-24-2022 Prothrombin time Shelly Mondragon PLANT TECHNICAL SPECIALIST - [employer] Work Phone: Start: 06-24-2022 VITAMIN B12 & FOLATE Shelly GoldersShea PLANT TECHNICAL SPECIALIST - GENERAL [employer]IGHT [employer]ENT Work Phone: Start: 06-24-2022 End: 06-25-2022 Rhythm [...] ankle complete minimum 3 views Shelly Mondragon PLANT TECHNICAL SPECIALIST - [employer]AL [employer]ENT Work Phone: Start: 06-23-2022 Lipid panel Zoila [...] MICHAELA ONTIVEROS Start: 04-13-2017 POCT GLUCOSE MICHAELA ONTIVEORS Start: 04-13-2017 POC GLUCOSE FINGERSTICK MICHAELA ONTIVEROS [...] 06-26-2032 Screening for malignant neoplasm of colon [facility] Start: 02-01-2025 End: 02-01-2025 Patient encounter procedure 02/01/2025 10:30 AM EST Office Visit [facility] [address] [place] [address] Fidel Abbott MD [address] [place] [address] [facility] Start: 11-27-2024 Influenza vaccination [facility] Start: 10-10-2024 Adult BMI Screening Adult BMI Screening [facility] Start: 10-10-2024 Tobacco Screening Tobacco Screening [facility] Start: 10-02-2024 Aerobic Culture Aerobic Culture [facility] Start: 10-02-2024 Anaerobic Culture Anaerobic Culture [facility] Start: 10-02-2024 Microscopic observation [Identifier] in Unspecified specimen by Gram stain [facility] Start: 10-02-2024 End: 10-02-2024 [facility] Start: 08-30-2024 Ankle brachial pressure index [facility] Start: 07-31-2024 End: 07-31-2025 Basic metabolic 1998 panel - Serum or Plasma Basic metabolic panel Lab Routine Annual physical exam Expected: 07/31/2024 (Approximate), Expires: 07/31/2025 [facility] Comment on above: Expected: 07/31/2024 (Approximate), Expi res: 07/31/2025 Start: 07-31-2024 End: 07-31-2025 CBC W Auto Differential panel - Blood CBC and differential Lab Routine Annual physical exam Expected: 07/31/2024 (Approximate), Expires: 07/31/2025 [facility] Comment on above: Expected: 07/31/2024 (Approximate), Expi res: 07/31/2025 Start: 07-31-2024 End: 07-31-2025 Hemoglobin A1c/Hemoglobin.total in Blood Hemoglobin A1c Lab Routine Annual physical exam Expected: 07/31/2024 (Approximate), Expires: 07/31/2025 [facility] Comment on above: Expected: 07/31/2024 (Approximate), Expi res: 07/31/2025 Start: 07-31-2024 End: 07-31-2025 Hepatic function 2000 panel - Serum or Plasma Hepatic function panel Lab Routine Annual physical exam Expected: 07/31/2024 (Approximate), Expires: 07/31/2025 [facility] Comment on above: Expected: 07/31/2024 (Approximate), Expi res: 07/31/2025 Start: 07-31-2024 End: 07-31-2025 Lipid 1996 panel - Serum or Plasma Lipid panel Lab Routine Annual physical exam Expected: 07/31/2024 (Approximate), Expires: 07/31/2025 [facility] Comment on above: Expected: 07/31/2024 (Approximate), Expi res: 07/31/2025 Start: 07-31-2024 End: 07-31-2025 Microalbumin/Creatinine panel in random Urine Microalbumin / creatinine, urine ratio Lab Routine Type 2 diabetes mellitus with hyperglycemia, without long-term current use of insulin ([facility]) Expected: 07/31/2024 (Approximate), Expires: 07/31/2025 [facility] Work Phone: Comment on above: Expected: 07/31/2024 [...] [facility] [address] [place] [phone] Fidel Abbott MD [address] [place] [phone] Arrived [facility] Comment on above: Arrived Start: 05-22-2024 End: 05-22-2024 Patient encounter procedure 05/22/2024 1:15 PM EST Office Visit [facility] [address] [place] [address] Fidel Abbott MD [address] [place] [phone] [facility] Start: 04-20-2024 End: 04-20-2024 Patient encounter procedure 04/20/2024 1:30 PM EST Office Visit [facility] [address] [place] [phone] Iraj Valdivia MD [address] [place], [place] [phone] [facility] Start: 04-13-2024 End: 04-13-2024 Patient encounter procedure 04/13/2024 2:00 PM EST Office Visit [facility] [address] [place] [phone] Iraj Valdivia MD [address] [place] [address] [facility] Start: 01-20-2024 End: 01-20-2024 Patient encounter procedure 01/20/2024 11:45 AM EDT Office Visit [facility] [address] [place] [phone] Fidel Abbott MD [address] [place] [phone] Arrived [facility] Comment on above: Arrived Start: 11-28-2023 Influenza vaccination [facility] Start: 11-18-2023 End: 11-17-2024 Albumin, urine, random Albumin, urine, random Lab Routine Type 2 diabetes mellitus with hyperglycemia, without long-term current use of insulin ([facility]) Expected: 11/18/2023 (Approximate), Expires: 11/17/2024 [facility] Work Phone: Comment on above: Expected: 11/18/2023 (Approximate), Expi res: 11/17/2024 Start: 11-18-2023 End: 11-17-2024 Basic metabolic 1998 panel - Serum or Plasma Basic metabolic panel Lab Routine Encounter for long-term (current) use of medications Expected: 11/18/2023 (Approximate), Expires: 11/17/2024 [facility] Comment on above: Expected: 11/18/2023 (Approximate), Expi res: 11/17/2024 Start: 11-18-2023 End: 11-17-2024 CBC W Auto Differential panel - Blood CBC and differential Lab Routine Encounter for long-term (current) use of medications Expected: 11/18/2023 (Approximate), Expires: 11/17/2024 [facility] Comment on above: Expected: 11/18/2023 (Approximate), Expi res: 11/17/2024 Start: 11-18-2023 End: 11-17-2024 Hemoglobin A1c/Hemoglobin.total in Blood Hemoglobin A1c Lab Routine Type 2 diabetes mellitus with hyperglycemia, without long-term current use of insulin ([facility]) Expected: 11/18/2023 (Approximate), Expires: 11/17/2024 [facility] Comment on above: Expected: 11/18/2023 (Approximate), Expi res: 11/17/2024 Start: 11-18-2023 End: 11-17-2024 Hepatic function 2000 panel - Serum or Plasma Hepatic function panel Lab Routine Encounter for long-term (current) use of medications Expected: 11/18/2023 (Approximate), Expires: 11/17/2024 [facility] Comment on above: Expected: 11/18/2023 (Approximate), Expi res: 11/17/2024 Start: 11-18-2023 End: 11-17-2024 Lipid 1996 panel - Serum or Plasma Lipid panel Lab Routine Type 2 diabetes mellitus with hyperglycemia, without long-term current use of insulin ([facility]) Expected: 11/18/2023 (Approximate), Expires: 11/17/2024 [facility] Comment on above: Expected: 11/18/2023 (Approximate), Expi res: 11/17/2024 Start: 10-18-2023 End: 10-18-2023 Patient encounter procedure 10/18/2023 10:00 AM EDT Office Visit [facility] [address] [place] [address] Fidel Abbott MD [address] [place] [address] [facility] Start: 09-19-2023 GFR test (Diabetes, CKD 3-4, OR last GFR 15-59) GFR test (Diabetes, CKD 3-4, OR last GFR 15-59) [facility] Start: 09-19-2023 Urine screening for protein Diabetes: Urine Protein Screening [facility] Start: 07-08-2023 Hemoglobin A1c measurement A1C test (Diabetic or Prediabetic) [facility] Start: 07-03-2023 GFR test (Diabetes, CKD 3-4, OR last GFR 15-59) GFR test (Diabetes, CKD 3-4, OR last GFR 15-59) [facility] Start: 06-27-2023 Screening for malignant neoplasm of colon [facility] Start: 06-26-2023 GFR test (Diabetes, CKD 3-4, OR last GFR 15-59) GFR test (Diabetes, CKD 3-4, OR last GFR 15-59) [facility] Start: 06-26-2023 Screening for malignant neoplasm of colon [facility] Start: 06-24-2023 Lipid panel Lipids [facility] Start: 06-23-2023 GFR test (Diabetes, CKD 3-4, OR last GFR 15-59) GFR test (Diabetes, CKD 3-4, OR last GFR 15-59) [facility] Start: 06-04-2023 [facility] Start: 05-20-2023 End: 05-20-2023 Patient encounter procedure 05/20/2023 3:10 PM EST Office Visit [facility] [address] [facility] [address] [place] [address] Jonathan Bah DPM [address] [address] [facility] Start: 05-06-2023 End: 05-06-2023 Patient encounter procedure 05/06/2023 10:20 AM EST Office Visit [facility] [address] [address] Jonathan Bah DPM [address] [address] [facility] Start: 10-27-2022 Influenza vaccination Flu vaccine (Season Ended) [facility] Start: 10-06-2022 Hemoglobin A1c measurement Diabetes: Hemoglobin A1C [facility] Start: 09-25-2022 End: 09-25-2022 Patient encounter procedure 09/25/2022 Office Visit [facility] Start: 07-08-2022 End: 07-08-2022 Patient encounter procedure 07/08/2022 Office Visit [facility] Start: 2022 End: 2022 Admission to same day surgery center 2022 Surgery IP Unit Angeles Nagy MD [address], [address] [place], [place] [phone] CYSTOSCOPY TRANSURETHROTOMY- DVIU WITH POSS TRANSURETHRAL RESECTION OF BLADDER TUMOR [facility] Comment on above: CYSTOSCOPY TRANSURETHROTOMY- DVIU WITH P OSS TRANSURETHRAL RESECTION OF BLADDER TUMOR Start: 2022 End: 2022 Cystourethroscopy w/internal urethrotomy male CYSTOSCOPY TRANSURETHROTOMY Cauda equina syndrome (HCC) 2022 8:30 AM EDT [facility] Start: 2022 Subsequent hospital visit by physician 2022 Hospital Encounter IP Unit Angeles Nagy MD [address], [address] [place], [place] [phone] [facility] Start: 07-01-2022 End: 06-27-2023 Basic metabolic 2000 panel - Serum or Plasma Basic Metabolic Panel Lab Routine Acute kidney injury (HCC) Expected: 07/01/2022, Expires: 06/27/2023 [facility] Work Phone: Comment on above: Expected: 07/01/2022, Expires: 4 Start: 07-01-2022 End: 06-27-2023 CBC W Auto Differential panel - Blood CBC with Auto Differential Lab Routine Acute kidney injury (HCC) Iron deficiency anemia, unspecified iron deficiency anemia type Expected: 07/01/2022, Expires: 06/27/2023 [facility] Phone: Comment on above: Expected: 07/01/2022, Expires: Start: 06-22-2022 Annual Wellness Visit (AWV) Annual Wellness Visit (AWV) [facility] Start: 10-27-2021 Influenza vaccination Flu vaccine (#1) [facility] Start: 04-09-2018 Diabetic foot examination Diabetic foot exam [facility] Start: 04-09-2018 Hemoglobin A1c measurement A1C test (Diabetic or Prediabetic) [facility] Start: 04-25-2016 Lipid panel Lipids [facility] Start: 04-24-2016 Urine screening for protein [facility] Start: 07-08-2011 Administration of varicella zoster vaccine Zoster (Shingles) Vaccine (1 of 2) [facility] Start: 07-08-2011 Shingles vaccine (1 of 2) Shingles vaccine (1 of 2) [facility] Start: 2006 Screening for malignant neoplasm of colon [facility] Start: 1980 DTaP,Tdap and Td Vaccines (1 - Tdap) DTaP,Tdap and Td Vaccines (1 - Tdap) [facility] Start: 1980 DTaP/Tdap/Td vaccine (1 - Tdap) DTaP/Tdap/Td vaccine (1 - Tdap) [facility] Start: 1980 Urine screening for protein Diabetes: Urine Protein Screening [facility] Start: 07-08-1979 Adult BMI Follow Up Plan Adult BMI Follow Up Plan [facility] Start: 07-08-1979 Glaucoma screening Diabetic retinal exam [facility] Start: 07-08-1979 Hepatitis C screening Hepatitis C screen [facility] Start: 1976 HIV screening HIV screen [facility] Start: 1973 Depression Monitoring Depression Monitoring [facility] Start: 1973 Depression Screening Depression Screening [facility] Start: 07-08-1971 Glaucoma screening Diabetes: Retinopathy Screening [facility] Start: 07-08-1967 Pneumococcal 0-64 years Vaccine (1 - PCV) Pneumococcal 0-64 years Vaccine (1 - PCV) [facility] Start: 01-06-1962 COVID-19 Vaccine (#1) COVID-19 Vaccine (#1) [facility] Start: 1961 Screening for malignant neoplasm of colon [facility] AEROBIC CULTURE AEROBIC CULTURE Lab Routine 10/02/2024 12:38 PM EDT [facility] Work Phone: ANAEROBIC CULTURE ANAEROBIC CULT URE Lab Routine 10/02/2024 12:38 PM EDT [facility] Bacteria identified in Unspecified specimen by Aerobe culture [facility] Bacteria identified in Unspecified specimen by Anaerobe culture [facility] End: 01-16-2025 Basic metabolic 2000 panel - Serum or Plasma Basic Metabolic Panel Lab Routine Stage 3a chronic kidney disease ([facility]) 1 Occurrences starting 01/17/2024 until 01/16/2025 [facility] Work Phone: Comment on above: 1 Occurrences starting 01/17/2024 until 01/16/2025 End: 01-16-2025 CBC panel - Blood by Automated count CBC without diff Lab Routine Stage 3a chronic kidney disease ([facility]) 1 Occurrences starting 01/17/2024 until 01/16/2025 [facility] Comment on above: 1 Occurrences starting 01/17/2024 until 01/16/2025 End: 06-27-2022 CBC W Auto Differential panel - Blood CBC auto differential Lab Routine Daily for 5 Days starting 06/23/2022 until 06/27/2022, 4 completed [facility] Work Phone: Comment on above: Daily for 5 Days starting 06/23/2022 unt il 06/27/2022, 4 completed Culture, Wound Aerob ic Only Culture, Wound Aerobic Only Microbiology [employer] Label Print 06/25/2022 12:20 PM EDT [facility] Work Phone: End: 06-25-2022 Hemoglobin and Hematocrit Hemoglobin and Hematocrit Lab Routine Post Transfusion Post Transfusion Post Transfustion until discontinued starting 06/24/2022, 1 completed [employer] Work Phone: Comment on above: Post Transfusion Post Transfusion Post T ransfustion until discontinued starting 06/24/2022, 1 completed End: 01-16-2025 Magnesium [Mass/volume] in Serum or Plasma Magnesium Lab Routine Stage 3a chronic kidney disease (CMS-HCC) 1 Occurrences starting 01/17/2024 until 01/16/2025 [employer] Comment on above: 1 Occurrences starting 01/17/2024 until 01/16/2025 Oxygen therapy [[facility] Data Set] Initiate Oxygen Therapy Protocol Respiratory Care Routine Daily until discontinued starting 06/22/2022 [facility] Phone: Comment on above: Daily until discontinued starting 2022 End: 01-16-2025 Parathyroid Hormone, intact Parathyroid Hormone, intact Lab Routine Stage 3a chronic kidney disease ([facility]) 1 Occurrences starting 01/17/2024 until 01/16/2025 [employer] Comment on above: 1 Occurrences starting 01/17/2024 until 01/16/2025 Patient Education Know your Meds [facility] Work Phone: Patient referral [facility] Work Phone: End: 01-16-2025 Phosphate [Mass/volume] in Serum or Plasma Phosphorus Lab Routine Stage 3a chronic kidney disease ([facility]) 1 Occurrences starting 01/17/2024 until 01/16/2025 [employer] Comment on above: 1 Occurrences starting 01/17/2024 until 01/16/2025 End: 06-24-2022 PREPARE RBC (CROSSMATCH), 1 Units PREPARE RBC (CROSSMATCH), 1 Units Blood Bank Routine Once for 1 Occurrences starting 06/24/2022 until 06/24/2022 [facility] Phone: Comment on above: Once for 1 Occurrences starting 06/25/19 until 06/24/2022 End: 01-16-2025 Protein creat ratio Protein creat ratio Lab Routine Stage 3a chronic kidney disease ([facility] 1 Occurrences starting 01/17/2024 until 01/16/2025 [employer] Comment on above: 1 Occurrences starting 01/17/2024 until 01/16/2025 End: 06-25-2022 Surgical Pathology Surgical Pathology Lab Routine One Time for 1 Occurrences starting 06/25/2022 until 06/25/2022 [facility] Phone: Comment on above: One Time for 1 Occurrences starting 05/29 until 06/25/2022 Surgical Pathology Surgical Path ology Lab Routine Hyperkalemia Release Upon Ordering for 1 Occurrences starting 06/26/2022 [facility] Phone: Comment on above: Release Upon Ordering for 1 Occurrences starting 06/26/2022 End: 06-25-2022 SURGICAL PATHOLOGY REPORT SURGICAL PATHOLOGY REPORT Lab Routine Once for 1 Occurrences starting 06/25/2022 until 06/25/2022 [employer] Work Phone: Comment on above: Once for 1 Occurrences starting 06/26/19 until 06/25/2022 End: 06-26-2022 SURGICAL PATHOLOGY REPORT SURGICAL PATHOLOGY REPORT Lab Routine Once for 1 Occurrences starting 06/26/2022 until 06/26/2022 [facility] Phone: Comment on above: Once for 1 Occurrences starting 06/27/19 until 06/26/2022 End: 01-16-2025 Urinalysis Urinalysis Lab Routine Stage 3a chronic kidney disease ([facility]) 1 Occurrences starting 01/17/2024 until 01/16/2025 [employer] Comment on above: 1 Occurrences starting 01/17/2024 until 01/16/2025 End: 01-16-2025 Vitamin D 25 hydroxy Vitamin D 25 hydroxy Lab Routine Stage 3a chronic kidney disease ([facility]) 1 Occurrences starting 01/17/2024 until 01/16/2025 [employer] Comment on above: 1 Occurrences starting 01/17/2024 until 01/16/2025 Immunizations Immunization Date Immunization Notes Care Provider [facility] 02-11-2023 influenza, injectabl e, quadrivalent, preservative free MD Fidel Abbott Work Phone: [facility] 02-11-2023 influenza virus vaccine, unspecified formulation Fidel Abbott MD Work Phone: [facility] 04-10-2017 influenza virus vaccine, unspecified formulation Jovanny VILLA [facility] Comment on above: Result Comment: 2022: VIS DATE: 11/02/2014 04-10-2017 influenza, injectabl e, quadrivalent, preservative free Fidel Abbott MD Work Phone: [facility] 01-28-2016 Influenza Vaccine, unspecified formulation Fidel bAbott MD Work Phone: [facility] 01-01-2015 influenza virus vaccine, unspecified formulation Jovanny VILLA [facility] 01-01-2015 influenza, seasonal, injectable MD Fidel Abbott Work Phone: [facility] 01-10-2014 influenza virus vaccine, unspecified formulation Jovanny VILLA [facility] Payers Date Payer Category Payer Self-pay [id number] [facility] Managed Care - PPO ANTHEM [id number] 2021 [facility] er [id number] 2021 Unknown BCBS BCBS [id number] 2021-Present [phone] [address] [place] [address] [id number]. [id number] 2015 Unknown [id number] 2006 Medicare [id number]. [id number] 1961 Unknown [id number] 2.16.840.1.234597.3.579.2. 593 1961 Unknown [id number] 2.16.840.1.758433.3.579.2. 593 1961 Unknown [id number] 2.16.840.1.724468.3.579.2. 593 1961 Unknown [id number] 2.16.840.1.768897.3.579.2. 173 1961 Unknown [id number] 2.16.840.1.415399.3.579.2. 173 1961 Unknown [id number] 2.16.840.1.903500.3.579.2. 173 1961 Unknown [id number] 2.16.840.1.298180.3.579.2. 173 1961 Unknown [id number] 2.16.840.1.854696.3.579.2. 173 1961 Unknown [id number] 2.16.840.1.372284.3.579.2. 173 1961 Unknown [id number] 2.16.840.1.449525.3.579.2. 173 1961 Unknown [id number] 2.16.840.1.436033.3.579.2. 173 1961 Unknown [id number] 2.16.840.1.101559.3.579.2. 1286 1961 Unknown [id number] 2.16.840.1.636481.3.579.2. 1286 1961 Unknown [id number] 2.16.840.1.765704.3.579.2. 1259 1961 Unknown [id number] 2.16.840.1.887472.3.579.2. 1259 1961 Unknown [id number] 2.16.840.1.993370.3.579.2. 1259 1961 Unknown [id number] 2.16.840.1.536264.3.579.2. 727 1959 Medicare [id number] 1959 Unknown [id number] 1959 Unknown [id number] Unknown [id number] 2.16.840.1.672690.3.579.2. 531 Unknown [id number] 2.16840.1.755772.3.579.2. 531 Unknown [id number] 2.16840.1.922108.3.579.2. 531 Unknown [id number] 2.16840.1.368477.3.579.2. 531 Unknown [id number] 2.16840.1.425773.3.579.2. 531 Social History Date Type Detail Facility Start: 01-27-2022 End: 02-23-2023 Tobacco smoking status NHIS Never smoked tobacco (finding) [facility] Start: 1960 Sex Assigned At Male F [facility] Start: 06-22-2022 End: 02-23-2023 Tobacco use and exposure Smokeless tobacco non-user [facility] Phone: Start: 06-22-2022 End: 07-14-2022 Alcohol intake Current non-drinker of alcohol (finding) [facility] Phone: Start: 1960 Sex Assigned At Not on file [facility] [employer] Phone: Start: 06-12-2022 End: 06-22-2022 Exposure to SARS-CoV-2 (event) Not sure [facility] Start: 06-23-2022 History SDOH Alcohol Frequency 1 [facility] Phone: Start: 06-23-2022 History SDOH Alcohol Std Drinks 0 [facility] Phone: Tobacco smoking status Never [facility] Start: 04-29-2023 End: 10-17-2023 Sex Assigned At Male [facility] Start: 04-29-2023 End: 07-31-2024 Alcohol intake Lifetime non-drinker (finding) [facility] Start: 04-29-2023 End: 10-17-2023 History of Social function [facility] Start: 11-01-2014 End: 08-30-2024 Sex Male (finding) [facility] Do you belong to any clubs or organizations such as tenriism groups, unions, fraternal or athletic groups, or [...] 06-04-2023 Wound debridement Collagen wound matrix dressing ([id number] FDA Start: 06-04-2023 Wound debridement Collagen wound matrix dressing ()[id number] FDA Start: 06-04-2023 Wound debridement EPIFIX MESH [...] 06-04-2023 Amputation, toe Collagen wound matrix dressing ()[id number] FDA Start: 02-10-2023 Graft Subst Resorbable Mini [facility] [id number] Start: 12-25-2016 Comment on above: Description: tobramy icin recostituted with 10ml normal saline ref # [id number] exp 07/27/2018 lot # [id number] Goals Date Patient Goal Desired Activity /State Functional Status Date Assessment Result Facility 11-09-2022 Functional Status N/A [facility] Clinical Notes 07-29-2021 to 08-15-2024 Note [...] with complication acute August 30, 2024 11:16am [facility] Work Phone: 1(364) 865-798105-20-2025 Evaluation note* Diagnosis Onset Date Resolution Status [...] 1 0:28am Cauda equina spinal cord injury [facility] August 15, 2024 10:28am [facility] Work Phone: 1(359) 745-427505-20-2025 Evaluation note* Diagnosis Onset Date Resolution Status [...] 1 0:28am Cauda equina spinal cord injury [facility] August 15, 2024 10:28am Bilateral lower extremity edema acut e August 30, 2024 11:16am Open wound of both legs with complication acute August 30, 2024 1 1:16am Diabetes mellitus due to underlying condition with diabetic neuropathy, wit acute September 10:30am Pressure injury of left isch ium, stage 4 acute October 02, 2024 1 0:30am Cauda equina spinal cord injury [facility] October 02, 2024 10:30am [facility] Work Phone: 1([phone]) 159-225605-05-2025 History of Present illness Narrative* Fidel Abbott MD - 07/31/2024 11:20 AM EDTAssociated Problem(s): Class 2 severe obesity due to excess calories with serious comorbidity and body mass index (BMI) of 36.0 to 36.9 in adult (CMS/FORMERLY [facility]) Weight loss indicated. * Fidel Abbott MD [...] Lipid panel PSA TSH documented in this encounterSaint Louis University HospitalFkvirhqesx19-16-0745 Miscellaneous Notes* Telephone Encounter - Fatemeh Ant - 04/17/2024 1:56 PM EST Pt called to reschedule new pt appt due to lack of transportation. I informed him that we have no availability in [place] until [facility] July schedule opens up. He stated he will call back the first weekof April to reschedule. [facility]01-[facility] Telephone encounter Note* Telephone Encounter - Fatemeh Ant - 04/17/2024 1:56 PM EST Pt called to reschedule new pt appt due to lack of transportation. I informed him that we have no availability in [place] until [facility] July schedule opens up. He stated he will call back the first weekof April to reschedule. [facility]01-17-2025 Miscellaneous Notes* Telephone Encounter - Mary Conner CMA - 04/14/2024 3:23 PM EST Left message for patient to call the office back to confirm upcoming appointment 04/20 at 1:[address] Valdivia in [place]. Also stated that patient needs to get labs done prior to upcoming appointment documented in this encounterCleveland Clinic01-17-2025 Telephone encounter Note* Telephone Encounter - Mary Conner CMA - 04/14/2024 3:23 PM EST Left message for patient to call the office back to confirm upcoming appointment 04/20 at 1:[address] Valdivia in [place]. Also stated that patient needs to get labs done prior to upcoming [facility] Miscellaneous Notes* Telephone Encounter - Mary Conner CMA - 04/06/2024 2:38 PM EST Left message for patient to call the office back to confirm upcoming appointment 04/13 at 2:[address] Valdivia in [place]. Also stated that patient needs to get labs done prior to upcoming appointment documented in this encounterCleveland Clinic01-09-2025 Telephone encounter Note* Telephone Encounter - Mary Conner CMA - 04/06/2024 2:38 PM EST Left message for patient to call the office back to confirm upcoming appointment 04/13 at 2:[address] Valdivia in [place]. Also stated that patient needs to get labs done prior to upcoming appointment [facility] [id number] Progress note Author Cathy Brar [facility] Note Date/Time March 14, 2024 11:23am [facility] [address] [place] [address] Wound Center Provider Note Signed Patient: Ganga Stinson MR#: [id number] : 1960 Acct:[id number] Age/Sex: 63 / M Copies to: MD [...] start?: 10 plus years Mode of Arrival/ Textiles Printer: Personal vehicle and Family Assistive Device Used [...] Itching Wound/Ulcer Sacrum: Bed Appearance: Beefy Red, [place], Rolled Edges and Yellow Percent of Wound [...] Ischium: Bed Appearance: Beefy Red, Bone Palpable, [place] and Yellow Percent of Wound Bed Granulated/Red: [...] Ischium: Bed Appearance: Beefy Red, Bone Palpable, [place], Rolled Edges and Yellow Percent of Wound Bed Granulated/Red: 90 Percent of Devitalized: 10 Length (cm): 0.5 Width (cm): 0.5 Depth (cm): 2.5 CM Sq: 0.250 Tunneling Position: 10:00 Tunneling Depth: 4 Surrounding Tissue Appearance: [place] and Macerated Surrounding Tissue Temp: Warm Drainage [...] underlying condition with diabetic neuropathy,unspecified; Z79.4 - intermediate project manager (current) use of insulin Plan Continue with [...] signed by MD Cathy Brar> 03/14/24 1123 [facility] Work Phone: 1(701) 747-703212-17-2024 Evaluation note* Diagnosis Onset Date Resolution Status [...] spinal cord injury chronic March 14 10:42am [facility] Work Phone: 1(765) 777-391912-17-2024 [place] [address] Wound Center Provider Note Signed Patient: Ganga Stinson MR#: [id number] : 1960 Acct:[id number] Age/Sex: 63 / M Copies to: MD [...] start?: 10 plus years Mode of Arrival/ Textiles Printer: Personal vehicle and Family Assistive Device Used [...] Itching Wound/Ulcer Sacrum: Bed Appearance: Beefy Red, [place], Rolled Edges and Yellow Percent of Wound [...] Ischium: Bed Appearance: Beefy Red, Bone Palpable, [place] and Yellow Percent of Wound Bed Granulated/Red: [...] Ischium: Bed Appearance: Beefy Red, Bone Palpable, [place], Rolled Edges and Yellow Percent of Wound Bed Granulated/Red: 90 Percent of Devitalized: 10 Length (cm): 0.5 Width (cm): 0.5 Depth (cm): 2.5 CM Sq: 0.250 Tunneling Position: 10:00 Tunneling Depth: 4 Surrounding Tissue Appearance: [place] and Macerated Surrounding Tissue Temp: Warm Drainage [...] underlying condition with diabetic neuropathy,unspecified; Z79.4 - longterm (current) use of insulin Plan Continue with [...] MD DD/ 112 Signed By: 03/14/24 1123 [facility]11-12-2024 Progress note Author Cathy Brar [facility] Note Date/Time February 08, 2024 11:44am [facility] [address] [place] [address] Wound Center Provider Note Signed Patient: Ganga Stinson MR#: [id number] : 1960 Acct:[id number] Age/Sex: 63 / M Copies to: MD [...] start?: 10 plus years Mode of Arrival/ Textiles Printer: Personal vehicle and Family Assistive Device Used [...] Itching Wound/Ulcer Sacrum: Bed Appearance: Beefy Red, [place], Rolled Edges and Yellow Percent of Wound [...] Jelly Right Ischium: Bed Appearance: Beefy Red, [place] and Yellow Percent of Wound Bed Granulated/Red: 90 Percent of Devitalized: 10 Length (cm): 6.6 Width (cm): 7.4 Depth (cm): 4.0 CM Sq: 48.840 Undermining Position: 8-11 Undermining Depth: 3.5 Tunneling Position: 00:00 Tunneling Depth: 0 Surrounding Tissue Appearance: Rolled Edges and Rash/Irritation Surrounding Tissue Temp: Warm Drainage Amount: Large Drainage Description: Serosanguineous Drainage Odor: No Odor Left Ischium: Bed Appearance: Beefy Red, [place], Rolled Edges and Yellow Percent of Wound [...] underlying condition with diabetic neuropathy,unspecified; Z79.4 - longterm (current) use of insulin Plan Continue with current dressing changes and pressure relief. Podiatry following the patient's foot ulcers. Follow-up in 1 month See Instructions for Orders See Instructions for Orders See Wound Discharge Instructions for Orders: Dictated By: Cathy Brar MD DD/ 1141 Signed By: <Electronically signed by MD Cathy Brar> 02/08/24 1144 [facility] Work Phone: [phone] Evaluation note* Diagnosis Onset Date Resolution Status [...] spinal cord injury chronic February 07 10:48am [facility] Work Phone: 1(168) 137-664611-12-2024 [place] [address] Wound Center Provider Note Signed Patient: Ganga Stinson MR#: [id number] : 1960 Acct:[id number] Age/Sex: 63 / M Copies to: MD [...] start?: 10 plus years Mode of Arrival/ Textiles Printer: Personal vehicle and Family Assistive Device Used [...] Itching Wound/Ulcer Sacrum: Bed Appearance: Beefy Red, [place], Rolled Edges and Yellow Percent of Wound [...] Jelly Right Ischium: Bed Appearance: Beefy Red, [place] and Yellow Percent of Wound Bed Granulated/Red: 90 Percent of Devitalized: 10 Length (cm): 6.6 Width (cm): 7.4 Depth (cm): 4.0 CM Sq: 48.840 Undermining Position: 8-11 Undermining Depth: 3.5 Tunneling Position: 00:00 Tunneling Depth: 0 Surrounding Tissue Appearance: Rolled Edges and Rash/Irritation Surrounding Tissue Temp: Warm Drainage Amount: Large Drainage Description: Serosanguineous Drainage Odor: No Odor Left Ischium: Bed Appearance: Beefy Red, [place], Rolled Edges and Yellow Percent of Wound [...] underlying condition with diabetic neuropathy,unspecified; Z79.4 - intermediate project manager (current) use of insulin Plan Continue with current dressing changes and pressure relief. Podiatry following the patient's foot ulcers. Follow-up in 1 month See Instructions for Orders See Instructions for Orders See Wound Discharge Instructions for Orders: Dictated By: Cathy Brar MD DD/ 1141 Signed By: 02/08/24 1144 [facility]10-24-2024 History of Present illness Narrative * [...] use hydroxyzine PRN. documented in this encounterSaint Louis University HospitalPujenqxmwf42-41-1820 Evaluation note* Diagnosis Stage 3a chronic kidney disease ([facility])- Primary documented in this encounter [facility]10-16-2024 Miscellaneous Notes* Telephone Encounter - Fatemeh Cain - 01/12/2024 9:03 AM EDT LM to schedule new pt appt. documented in this encounterCleveland Clinic10-16-2024 Telephone encounter Note* Telephone Encounter - Fatemeh Cain - 01/12/2024 9:03 AM EDT SHAMEKA to schedule new pt appt. [facility]10-08-2024 Progress note Author Cathy Brar [facility] Note Date/Time January 04, 2024 11 :52am [facility] [address] [place] [address] Wound Center Provider Note Signed Patient: Ganga Stinson MR#: [id number] : 1960 Acct:[id number] Age/Sex: 63 / M Copies to: MD [...] start?: 10 plus years Mode of Arrival/ Textiles Printer: Personal vehicle and Family Assistive Device Used [...] Itching Wound/Ulcer Sacrum: Bed Appearance: Beefy Red, [place] and Yellow Percent of Wound Bed Granulated/Red: 90 Percent of Devitalized: 10 Length (cm): 2.9 Width (cm): 1.5 Depth (cm): 3 CM Sq: 4.350 Undermining Position: 360 Undermining Depth: 3.5 Surrounding Tissue Appearance: Bright Red and Rash/Irritation Surrounding Tissue Temp: Warm Drainage Amount: Large Drainage Description: Serosanguineous Drainage Odor: No Odor Right Ischium: Bed Appearance: Beefy Red, [place] and Yellow Percent of Wound Bed Granulated/Red: 90 Percent of Devitalized: 10 Length (cm): 7 Width (cm): 7.5 Depth (cm): 4.0 CM Sq: 52.500 Undermining Position: 8-11 Undermining Depth: 4.0 Tunneling Position: 00:00 Tunneling Depth: 0 Surrounding Tissue Appearance: Rolled Edges and Rash/Irritation Surrounding Tissue Temp: Warm Drainage Amount: Large Drainage Description: Serosanguineous Drainage Odor: No Odor Left Ischium: Bed Appearance: Beefy Red, [place], Rolled Edges and Yellow Percent of Wound Bed Granulated/Red: 90 Percent of Devitalized: 10 Length (cm): 0.7 Width (cm): 0.8 Depth (cm): 2.9 CM Sq: 0.560 Tunneling Position: 10:00 Tunneling Depth: 3 Surrounding Tissue Appearance: [place] Surrounding Tissue Temp: Warm Drainage Amount: Large [...] underlying condition with diabetic neuropathy,unspecified; Z79.4 - intermediate project manager (current) use of insulin Plan Continue with current dressing changes and pressure relief. Podiatry following the patient's foot ulcers. Follow-up in 1 month See Instructions for Orders See Instructions for Orders See Wound Discharge Instructions for Orders: Dictated By: Cathy Brar MD DD/ 1050 Signed By: <Electronically signed by MD Cathy Brar> 01/04/24 1052 [facility] Work Phone: 1([phone]) 494-652010-08-2024 [place] [address] Wound Center Provider Note Signed Patient: Ganga Stinson MR#: [id number] : 1960 Acct:[id number] Age/Sex: 63 / M Copies to: MD [...] start?: 10 plus years Mode of Arrival/ Textiles Printer: Personal vehicle and Family Assistive Device Used [...] Itching Wound/Ulcer Sacrum: Bed Appearance: Beefy Red, [place] and Yellow Percent of Wound Bed Granulated/Red: 90 Percent of Devitalized: 10 Length (cm): 2.9 Width (cm): 1.5 Depth (cm): 3 CM Sq: 4.350 Undermining Position: 360 Undermining Depth: 3.5 Surrounding Tissue Appearance: Bright Red and Rash/Irritation Surrounding Tissue Temp: Warm Drainage Amount: Large Drainage Description: Serosanguineous Drainage Odor: No Odor Right Ischium: Bed Appearance: Beefy Red, [place] and Yellow Percent of Wound Bed Granulated/Red: 90 Percent of Devitalized: 10 Length (cm): 7 Width (cm): 7.5 Depth (cm): 4.0 CM Sq: 52.500 Undermining Position: 8-11 Undermining Depth: 4.0 Tunneling Position: 00:00 Tunneling Depth: 0 Surrounding Tissue Appearance: Rolled Edges and Rash/Irritation Surrounding Tissue Temp: Warm Drainage Amount: Large Drainage Description: Serosanguineous Drainage Odor: No Odor Left Ischium: Bed Appearance: Beefy Red, [place], Rolled Edges and Yellow Percent of Wound Bed Granulated/Red: 90 Percent of Devitalized: 10 Length (cm): 0.7 Width (cm): 0.8 Depth (cm): 2.9 CM Sq: 0.560 Tunneling Position: 10:00 Tunneling Depth: 3 Surrounding Tissue Appearance: [place] Surrounding Tissue Temp: Warm Drainage Amount: Large [...] underlying condition with diabetic neuropathy,unspecified; Z79.4 - intermediate project manager (current) use of insulin Plan Continue with current dressing changes and pressure relief. Podiatry following the patient's foot ulcers. Follow-up in 1 month See Instructions for Orders See Instructions for Orders See Wound Discharge Instructions for Orders: Dictated By: Cathy Brar MD DD/ 1050 Signed By: 01/04/24 1052 [facility]08-22-2024 History of Present illness Narrative * [...] CBC and differential documented in this encounterSaint Louis University HospitalTonssnpvcz22-11-7588 Progress note Author Cathy Brar [facility] Note Date/Time November 09, 2023 1: 07pm [facility] [address] [place] [address] Wound Center Provider Note Signed Patient: Ganga Stinson MR#: M [id number] : 1960 Acct:[id number] Age/Sex: 63 / M Copies to: MD [...] his foot ulcers and [facility]. Currently, [...] start?: 10 plus years Mode of Arrival/ Textiles Printer: Personal vehicle and Family Assistive Device Used [...] Sacrum: Bed Appearance: Beefy Red, Bone Palpable, [place] and Yellow Percent of Wound Bed Granulated/Red: 90 Percent of Devitalized: 10 Length (cm): 2.5 Width (cm): 2 Depth (cm): 3 CM Sq: 5.000 Undermining Position: 360 Undermining Depth: 4 Surrounding Tissue Appearance: Bright Red and Rash/Irritation Surrounding Tissue Temp: Warm Drainage Amount: Large Drainage Description: Serosanguineous Drainage Odor: No Odor Right Ischium: Bed Appearance: Beefy Red, [place] and Yellow Percent of Wound Bed Granulated/Red: [...] Odor Left Ischium: Bed Appearance: Beefy Red, [place], Rolled Edges and Yellow Percent of Wound Bed Granulated/Red: 90 Percent of Devitalized: 10 Length (cm): 0.7 Width (cm): 0.8 Depth (cm): 2.3 CM Sq: 0.560 Tunneling Position: 10:00 Tunneling Depth: 3 Surrounding Tissue Appearance: [place] Surrounding Tissue Temp: Warm Drainage Amount: Large [...] underlying condition with diabetic neuropathy,unspecified; Z79.4 - longterm (current) use of insulin Plan Continue with [...] <Electronically signed by MD Cathy Brar> 11/09/[address] [place] [address] Work Phone: 1(508) 389-468808-13-2024 [place] [address] Wound Center Provider Note Signed Patient: Ganga Stinson MR#: M [id number] : 1960 Acct:[id number] Age/Sex: 63 / M Copies to: MD [...] his foot ulcers and [facility]. Currently, [...] start?: 10 plus years Mode of Arrival/ Textiles Printer: Personal vehicle and Family Assistive Device Used [...] Sacrum: Bed Appearance: Beefy Red, Bone Palpable, [place] and Yellow Percent of Wound Bed Granulated/Red: 90 Percent of Devitalized: 10 Length (cm): 2.5 Width (cm): 2 Depth (cm): 3 CM Sq: 5.000 Undermining Position: 360 Undermining Depth: 4 Surrounding Tissue Appearance: Bright Red and Rash/Irritation Surrounding Tissue Temp: Warm Drainage Amount: Large Drainage Description: Serosanguineous Drainage Odor: No Odor Right Ischium: Bed Appearance: Beefy Red, [place] and Yellow Percent of Wound Bed Granulated/Red: [...] Odor Left Ischium: Bed Appearance: Beefy Red, [place], Rolled Edges and Yellow Percent of Wound Bed Granulated/Red: 90 Percent of Devitalized: 10 Length (cm): 0.7 Width (cm): 0.8 Depth (cm): 2.3 CM Sq: 0.560 Tunneling Position: 10:00 Tunneling Depth: 3 Surrounding Tissue Appearance: [place] Surrounding Tissue Temp: Warm Drainage Amount: Large [...] underlying condition with diabetic neuropathy,unspecified; Z79.4 - longterm (current) use of insulin Plan Continue with [...] MD DD/ 1202 Signed By: 11/09/23 1207 [facility]07-09-2024 Progress note Author Cathy Brar [facility] Note Date/Time October 05, 2023 12:[address] [facility] [address] [place] [address] Wound Center Provider Note Signed Patient: Ganga Stinson MR#: [id number] : 1960 Acct:[id number] Age/Sex: 63 / M Copies to: MD [...] is Dr. Abbott. Patient also sees a hybrid car mechanic. Apparently he was to start on a new medication and will need to be on blood thinners because of the medication. Subjective Pain Buttock: Pain Intensity: 6 Wound/Ulcer History When did wound start?: 10 plus years Mode of Arrival/ Textiles Printer: Personal vehicle and Family Assistive Device Used [...] Itching Wound/Ulcer Sacrum: Bed Appearance: Beefy Red, [place] and Yellow Percent of Wound Bed Granulated/Red: 90 Percent of Devitalized: 10 Length (cm): 2.6 Width (cm): 1.5 Depth (cm): 2.9 CM Sq: 3.900 Undermining Position: 360 (deepest at 9) Undermining Depth: 4.5 Surrounding Tissue Appearance: Hyperpigmented Surrounding Tissue Temp: Warm Drainage Amount: Large Drainage Description: Serosanguineous Drainage Odor: No Odor Right Ischium: Bed Appearance: Beefy Red, Bone Palpable, [place] and Yellow Percent of Wound Bed Granulated/Red: 90 Percent of Devitalized: 10 Length (cm): 5 Width (cm): 7 Depth (cm): 3.5 CM Sq: 35.000 Undermining Position: 8-11 (deepest at 9) Undermining Depth: 3.7 Surrounding Tissue Appearance: Hyperpigmented Surrounding Tissue Temp: Warm Drainage Amount: Large Drainage Description: Serosanguineous Left Ischium: Bed Appearance: Beefy Red, [place] and Yellow Percent of Wound Bed Granulated/Red: [...] underlying condition with diabetic neuropathy,unspecified; Z79.4 - longterm (current) use of insulin Plan Continue with current dressing changes and pressure relief. Okay to start on new medications prescribed by hybrid car mechanic. Patient and were told to monitor for evidence of bleeding from the wounds. Follow-up in about 1 month. See Instructions for Orders See Instructions for Orders See Wound Discharge Instructions for Orders: Dictated By: Cathy Brar MD DD/ 1115 Signed By: <Electronically signed by MD Cathy Brar> 10/05/23 1120 [facility] Work Phone: 1(153) 418-967607-09-2024 [place] [address] Wound Center Provider Note Signed Patient: Ganga Stinson MR#: M [id number] : 1960 Acct:[id number] Age/Sex: 63 / M Copies to: MD [...] is Dr. Abbott. Patient also sees a hybrid car mechanic. Apparently he was to start on a new medication and will need to be on blood thinners because of the medication. Subjective Pain Buttock: Pain Intensity: 6 Wound/Ulcer History When did wound start?: 10 plus years Mode of Arrival/ Textiles Printer: Personal vehicle and Family Assistive Device Used [...] Itching Wound/Ulcer Sacrum: Bed Appearance: Beefy Red, [place] and Yellow Percent of Wound Bed Granulated/Red: 90 Percent of Devitalized: 10 Length (cm): 2.6 Width (cm): 1.5 Depth (cm): 2.9 CM Sq: 3.900 Undermining Position: 360 (deepest at 9) Undermining Depth: 4.5 Surrounding Tissue Appearance: Hyperpigmented Surrounding Tissue Temp: Warm Drainage Amount: Large Drainage Description: Serosanguineous Drainage Odor: No Odor Right Ischium: Bed Appearance: Beefy Red, Bone Palpable, [place] and Yellow Percent of Wound Bed Granulated/Red: 90 Percent of Devitalized: 10 Length (cm): 5 Width (cm): 7 Depth (cm): 3.5 CM Sq: 35.000 Undermining Position: 8-11 (deepest at 9) Undermining Depth: 3.7 Surrounding Tissue Appearance: Hyperpigmented Surrounding Tissue Temp: Warm Drainage Amount: Large Drainage Description: Serosanguineous Left Ischium: Bed Appearance: Beefy Red, [place] and Yellow Percent of Wound Bed Granulated/Red: [...] underlying condition with diabetic neuropathy,unspecified; Z79.4 - intermediate project manager (current) use of insulin Plan Continue with current dressing changes and pressure relief. Okay to start on new medications prescribed by hybrid car mechanic. Patient and were told to monitor for evidence of bleeding from the wounds. Follow-up in about 1 month. See Instructions for Orders See Instructions for Orders See Wound Discharge Instructions for Orders: Dictated By: Cathy Brar MD DD/ 1115 Signed By: 10/05/23 1120 [facility]02-15-2024 Telephone encounter Note* Telephone Encounter - Sandhya Velasquez RN - 05/13/2023 3:00 PM EST Patient called to inquire about the antibiotic that was supposed to be sent after his 05/06 visit. Can you resend? Thank you! [facility] [id number] Miscellaneous Notes* Telephone Encounter - Sandhya Velasquez RN - 05/13/2023 3:00 PM EST Patient called to inquire about the antibiotic that was supposed to be sent after his 05/06 visit. Can you resend? Thank you! documented in this encounterSaint Louis University [id number] History of Present illness Narrative* Jonathan Bah [...] unable to go to wound care at [facility] Patient also has [employer] [...] or home health. Patient currently going at [facility] for decubitus ulcer Patient still awaits MRI approval as had to be resubmitted due to need for new x-ray on previous visit in awaits MRI at [facility] . Referral has been sent to [facility] wound center with attempt to follow-up for [...] for possible osteomyelitis to fibula at [facility] ASSESSMENT 12 weeks s/p left [...] oral antibiotics Patient to follow up with [facility] for decubitus ulcer and instructions [...] Jonathan Bah DPM documented in this encounterSaint Louis University [id number] Progress note Author Cathy Brar [facility] May 04, 2023 1:07pm Note Date/Time May 04, 2023 1 2:48pm [facility] [address] [place] [address] Wound Center Provider Note Signed Patient: Ganga Stinson MR#: M [id number] : 1960 Acct:[id number] Age/Sex: 62 / M Copies to: MD [...] did wound start?: years Mode of Arrival/ Textiles Printer: Personal vehicle Assistive Device Used Today: Wheelchair [...] Itching Wound/Ulcer Right Lateral Ankle: Bed Appearance: [place] and Yellow Percent of Wound Bed Granulated/Red: [...] No Odor Right Medial Foot: Bed Appearance: [place] and Yellow Percent of Wound Bed Granulated/Red: 50 Percent of Devitalized: 50 Length (cm): 1.0 Width (cm): 1.0 Depth (cm): 0.3 CM Sq: 1.000 Surrounding Tissue Appearance: Hyperpigmented Surrounding Tissue Temp: Warm Drainage Amount: Moderate Drainage Description: Serosanguineous Drainage Odor: No Odor Sacrum: Bed Appearance: Beefy Red, [place] and Yellow Percent of Wound Bed Granulated/Red: 90 Percent of Devitalized: 10 Length (cm): 2.9 Width (cm): 1.5 Depth (cm): 2.5 CM Sq: 4.350 Undermining Position: 360 deepest at 9:00 Undermining Depth: 4.0 Surrounding Tissue Appearance: Hyperpigmented, Macerated and Callous Surrounding Tissue Temp: Warm Drainage Amount: Large Drainage Description: Serosanguineous Drainage Odor: No Odor Right Ischium: Bed Appearance: Beefy Red, [place] and Yellow Percent of Wound Bed Granulated/Red: 90 Percent of Devitalized: 10 Length (cm): 5.3 Width (cm): 7.5 Depth (cm): 4.0 CM Sq: 39.750 Surrounding Tissue Appearance: [place], Macerated and Callous Surrounding Tissue Temp: Warm Drainage Amount: Large Drainage Description: Serosanguineous Drainage Odor: No Odor Left Ischium: Bed Appearance: Beefy Red and [place] Percent of Wound Bed Granulated/Red: 100 Percent [...] underlying condition with diabetic neuropathy,unspecified; Z79.4 - longterm (current) use of insulin (5) Foot ulcer [...] <Electronically signed by MD Cathy Brar> 05/04/23 5488 [facility] Work Phone: [phone] Hospital Discharge instructions Patient Education 11/09/2022 14:08:53 [...] Follow these instructions at home: Medicines Take [id number] and prescription medicines only as told by [...] provider. Document Revised: 12/04/2020 Document Reviewed: 12/04/2020 [employer] Patient Education 2022 [employer]Now. Follow Up Care 10/13/2022 11:18:02 With:ALLEN NAZARIO, Jovanny Christie, URL Address: [facility] [address] [place] [address]- [phone] When: Unknown Comments:sched cysto [facility] [place] 03-31-2023 History of Present illness [...] 06/26/2022 12:01 PM EDT Physical Therapy Facility/Department: [facility] Daily Treatment Note NAME: [...] 06/26/2022 12:00 PM EDT Occupational Therapy Facility/Department: [facility] Daily Treatment Note NAME: [...] 06/26/2022 9:35 AM EDT [facility] via cart with RN. [...] Crockett RN - 06/26/2022 3:00 AM EDT Tobacco Drier Operator at bedside for wound dressing change- pt incontinent of bowels. See flow sheet for details. * Panchito Crockett RN - 06/26/2022 1:30 AM EDT Pt incontinent of stool. Tobacco Drier Operator at bedside for wound change dressing per order- see flow sheet for details. * Panchito Crockett RN - 06/26/2022 12:50 AM EDT Patient at bedside for reassessment and vitals- see flow sheet for details. Pt remains alert and oriented c4-calm and cooperative. GoLYTELY at bedside and typewriter assembler encourages patient to consume fluid- pt validates understanding. Patient currently denying pain and discomfort. Denying any additional needs, call light placed within reach, bed in lowest position. Tobacco Drier Operator encourages patient to call out for assistance. Will continue to monitor. * Panchito Crockett RN - 06/26/2022 12:45 AM EDT Tobacco Drier Operator at bedside- pt incontinent of stool- wound dressing changed per order. See flow sheet. * Panchito Crockett RN - 06/25/2022 10:05 PM EDT Tobacco Drier Operator at bedside to for wound dressing change per order. See MAR for details. * Eloise Lopez PTA - 06/25/2022 3:56 PM EDT Physical Therapy Facility/Department: [facility] Daily Treatment Note NAME: [...] Time Out 1430 Minutes 28 Eloise Brickner, SIGN MANUFACTURER * Zoila Villafuerte PA-C - 06/25/2022 1:07 [...] never been a smoker. He saw a creative services intern at [facility] 2 years ago in 2020. [...] He follows with wound clinic at [facility]. Mr. Alloway also denied any current or [...] ankle 12/30/2016 Paralysis of both lower limbs ([facility]) Paraplegia ([facility]) Type II or unspecified type diabetes mellitus [...] BEADS performed by Gabriel Haile DPM at [facility] OR SD I&D BELOW FASCIA FOOT 1 BURSAL SPACE Right 04/10/2017 RIGHT ANKLE AND RIGHT HEEL DEBRIDEMENT INCISION AND DRAINAGE WITH CULTURES SENT performed by William Jimenez MD at [facility] OR SD OFFICE/OUTPT VISIT,PROCEDURE ONLY Right 06/14/2017 FOOT DEBRIDEMENT INCISION AND DRAINAGE-ANKLE INCLUDING BONE BIOPSY performed by Ro Husseint [facility] OR TOE AMPUTATION Right 12/25/2016 right fifth toe amputation with I&D, ATB beads per Dr. Haile [employer]TER PLACEMENT [place] filter Social History: Social History Tobacco Use [...] Pressure injury of right ankle, stage 4 ([facility]) 06/24/2022 Open wound of right ankle 12/30/2016 Mixed hyperlipidemia 04/25/2015 Hyponatremia 04/25/2015 Diabetes mellitus ([facility]) 07/02/2011 Paraplegia ([facility]) 03/12/2011 MSSA (methicillin susceptible Staphylococcus aureus) infection 05/28/2017 Bacterial infection 02/17/2017 Enterococcus faecalis infection 12/28/2016 Skin ulcer of right heel with fat layer exposed ([facility]) 09/02/2016 Skin ulcer of right 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 ([facility]) 04/25/2015 Decubitus ulcer of coccygeal region 07/19/2013 Cauda equina syndrome ([facility]) 12/09/2011 Open wound of knee, leg (except thigh), and ankle, complicated 02/25/2011 Acute kidney injury superimposed on CKD ([facility]) 06/23/2022 Abnormal EKG 06/23/2022 Neurogenic bladder 06/23/2022 Hyperkalemia 06/22/2022 Osteomyelitis of ankle or foot, right, acute ([facility]) Decubitus ulcer of coccygeal region, stage 4 ([facility]) 04/09/2017 Cellulitis 04/08/2017 Morbid obesity due to excess calories ([facility]) 01/01/2017 Acute on chronic renal failure ([facility]) 12/30/2016 Osteomyelitis of right foot (HCC) Hypertension [...] with the plan. Sincerely, Zoila Villafuerte PA-C [facility] Lead Software Test Engineer [address] [place], [place] [id number] , I believe that the risk of [...] ankle 12/30/2016 Paralysis of both lower limbs ([facility]) Paraplegia ([facility]) Type II or unspecified type diabetes mellitus [...] BEADS performed by Gabriel Haile DPM at [facility] OR SD I&D BELOW FASCIA FOOT 1 BURSAL SPACE Right 04/10/2017 RIGHT ANKLE AND RIGHT HEEL DEBRIDEMENT INCISION AND DRAINAGE WITH CULTURES SENT performed by William Jimenez MD at [facility] OR SD OFFICE/OUTPT VISIT,PROCEDURE ONLY Right 06/14/2017 FOOT DEBRIDEMENT INCISION AND DRAINAGE-ANKLE INCLUDING BONE BIOPSY performed by Ro Husseint [facility] OR TOE AMPUTATION Right 12/25/2016 [...] g, 17 g, Oral, Daily PRN, Matias Gacria MD acetaminophen (TYLENOL) tablet 650 mg, 650 mg, Oral, Q6H PRN OR acetaminophen (TYLENOL) suppository 650 mg, 650 mg, Rectal, Q6H PRN, Matias Garcia MD [Held by provider] heparin (porcine) injection 5,000 Units, 5,000 Units, SubCUTAneous, 3 times per day, Matias Garcia MD, 5,000 Units at 06/23/22 0578 PE: VSS, Afebrile, NAD, A&O x 3, Aloof Labs: as above RLE ; lateral ankle ; FT+ ulcerative wound , +PTB IMP: stage 4 ankle decubitus, appaarent bone involvement Stable for minor bedside procedure Tx: see procedure notes P: see orders / AVS Yakov Min DPM 06/25/2022 12:28 PM * LAURENT Gomez - 06/25/2022 11:55 AM EDT Occupational Therapy Facility/Department: [facility] Daily Treatment Note NAME: [...] MD 8:05 AM 06/25/2022 * Shelly MoralesShea, PLANT TECHNICAL SPECIALIST - GENERAL FREIGHT AGENT - 06/25/2022 7:34 AM EDT Images from [...] labs-Hgb 7.6 today Nutrition status: morbid obesity Combiner consult initiated Hospital Prophylaxis: DVT: Heparin Stress Ulcer: na Disposition: Shared decision making: All test results, treatment options and disposition options were discussed with the patient today Social determinants of health that may impact management: none Code status: Full Code Disposition: Discharge plan is home [facility] Advanced Care Planning documentation: [x] [...] the patient's medical record. [DOES NOT SATISFY [facility] PERFORMANCE] Shelly Mondragon APRN - DOLLY , ESTELLE, DISTILLERY WORKER-C [facility] 06/25/2022, 7:34 AM Shelly Mondragon APRN-DOLLY Associated attestation - Matias Garcia MD - 06/25/2022 7:34 PM EDT Images from the original note were not included. [address] , [place], [place], [address] Attestation Patient: Ganga Stinson Date of Admission: 06/22/2022 4:21 PM Hospital Day # 3 Date of Evaluation: 06/25/2022 I personally evaluated and examined the patient [id number] in conjunction with the PA/DISTILLERY WORKER and agree with the management and dispostition of the patient. Please see the PA/DISTILLERY WORKER's note for full details.My kohli findings are: [...] with the plan as outlined in the DISTILLERY WORKER/PA's note Disposition: Discharge plan is pending Please note that this chart was generated using voice recognition [employer] dictation software. Although every effort was made to ensure the accuracy of this automated sap mobility architect, some errors in sap mobility architect may have occurred. Matias Garcia MD 06/25/2022 [...] Samayoa RN - 06/25/2022 12:52 AM EDT Tobacco Drier Operator at bedside at this time to perform [...] Samayoa RN - 06/24/2022 6:43 PM EDT Tobacco Drier Operator at bedside at this time to perform [...] 06/24/2022 4:57 PM EDT Physical Therapy Facility/Department: [facility] Daily Treatment Note NAME: [...] Time Out 1643 Minutes 19 Martita Tam, SIGN MANUFACTURER * Heri Valdez RN - 06/24/2022 4:00 [...] never been a smoker. He saw a creative services intern at [facility] 2 years ago in 2020. [...] He follows with wound clinic at [facility]. Mr. Stinson also denied any current or recent chest pain, abdominal pain, bleeding problems, problems with his medications or any other concerns at this time. Past Medical History: Diagnosis Date Abnormal EKG 06/23/2022 Acute kidney injury superimposed on CKD (HCC) 06/23/2022 Cauda equina syndrome ([facility]) 2004 Depression Hypertension MRSA (methicillin resistant staph aureus) culture positive 04/10/2017 right ankle Open wound of right ankle 12/30/2016 Paralysis of both lower limbs ([facility]) Paraplegia ([facility]) Type II or unspecified type diabetes mellitus [...] BEADS performed by Gabriel Haile DPM at [facility] OR SD I&D BELOW FASCIA FOOT 1 BURSAL SPACE Right 04/10/2017 RIGHT ANKLE AND RIGHT HEEL DEBRIDEMENT INCISION AND DRAINAGE WITH CULTURES SENT performed by William Jimenez MD at [facility] OR SD OFFICE/OUTPT VISIT,PROCEDURE ONLY Right 06/14/2017 FOOT DEBRIDEMENT INCISION AND DRAINAGE-ANKLE INCLUDING BONE BIOPSY performed by Ro Husseint [facility] OR TOE AMPUTATION Right 12/25/2016 right fifth toe amputation with I&D, ATB beads per Dr. Haile [employer] [place] filter Social History: Social History Tobacco Use [...] Mixed hyperlipidemia 04/25/2015 Hyponatremia 04/25/2015 Diabetes mellitus ([facility]) 07/02/2011 Paraplegia ([facility]) 03/12/2011 MSSA (methicillin susceptible Staphylococcus aureus) infection 05/28/2017 Bacterial infection 02/17/2017 Enterococcus faecalis infection 12/28/2016 Skin ulcer of right heel with fat layer exposed ([facility]) 09/02/2016 Skin ulcer of right 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 ([facility]) 04/25/2015 Decubitus ulcer of coccygeal region 07/19/2013 Cauda equina syndrome ([facility]) 12/09/2011 Open wound of knee, leg (except thigh), and ankle, complicated 02/25/2011 Acute kidney injury superimposed on CKD ([facility]) 06/23/2022 Abnormal EKG 06/23/2022 Neurogenic bladder 06/23/2022 [...] with the plan. Sincerely, Zoila Villafuerte PA-C [facility] Lead Software Test Engineer [address] [place] [address] , I believe that the risk of [...] 06/24/2022 10:32 AM EDT Occupational Therapy Facility/Department: [facility] Daily Treatment Note NAME: [...] prep on 06/25/2022 6pm MD Audra STAFFORD [facility] * Shelly Mondragon APRN - DOLLY [...] IRon Monitor labs Nutrition status: morbid obesity Combiner consult initiated Hospital Prophylaxis: DVT: Heparin Stress [...] MIPS PERFORMANCE] ESTELLE Katz CNP , ESTELLE, DISTILLERY WORKER-C Hospitalist Medicine 06/24/2022, 7:34 AM Blood Transfusion [...] from the original note were not included. [address] , [place], [place], [address] Attestation Patient: Ganga Stinson Date of Admission: 06/22/2022 4:21 PM Hospital Day # 2 Date of Evaluation: 06/24/2022 I personally evaluated and examined the patient [id number] in conjunction with the PA/DISTILLERY WORKER and agree with the management and dispostition of the patient. Please see the PA/DISTILLERY WORKER's note for full details.My kohli findings are: [...] with the plan as outlined in the DISTILLERY WORKER/PA's note Disposition: Discharge plan is pending, GI, Cardiology, Urology consultations, Transfuse if pRBC <7, wound care to the affected area and monitor electrolytes. Please note that this chart was generated using voice recognition [employer] dictation software. Although every effort was made to ensure the accuracy of this automated sap mobility architect, some errors in sap mobility architect may have occurred. Matias Garcia MD 06/24/2022 9:39 PM * Geneva Samayoa RN - 06/24/2022 2:46 AM EDT Spoke with Dr. Garcia and informed him of critical lab levels. No new orders. * Geneva Samayoa RN - 06/24/2022 2:15 AM EDT Tobacco Drier Operator at bedside at this time to perform [...] this time and patient transferred over to [facility]. * Geneva Samayoa RN - 06/23/2022 9:00 PM EDT Tobacco Drier Operator at bedside at this time to perform [...] 06/23/2022 4:35 PM EDT Physical Therapy Facility/Department: [facility] Daily Treatment Note NAME: [...] 06/23/2022 4:31 PM EDT Occupational Therapy Facility/Department: [facility] Daily Treatment Note NAME: [...] 06/23/2022 2:08 PM EDT Physical Therapy Facility/Department: [facility] Physical Therapy Initial Assessment [...] Ambulation Assistance: Non-ambulatory Transfer Assistance: Independent Active Heddle Machine Operator: No Additional Comments: Pt. with hx [...] 06/23/2022 11:26 AM EDT Occupational Therapy Facility/Department: [facility] Occupational Therapy Initial Assessment [...] Ambulation Assistance: Non-ambulatory Transfer Assistance: Independent Active Heddle Machine Operator: No Additional Comments: Pt. with hx [...] to Severe Extremities (+ 2 pitting BLE) Mechanics Handyman Strength: Not Performed Nutrition Assessment: Altered nutrition [...] Anthropometric Measures: Height: 5' 11 (180.3 cm) [place] Body Weight (IBW): 172 lbs (78 kg) [...] Used for Energy Requirements: Current Energy (kcal/day): 2391-6915 (20-23/kg) Weight Used for Protein Requirements: [place] Protein (g/day): 109-133g (1.4-1.7g/kg) Method Used for [...] Nutrition Supplement [address], [place] Contact: [phone] * Panchito Crockett RN - 06/23/2022 1:00 AM EDT Tobacco Drier Operator at bedside for reassessment-see flow sheet for details. Patient remains alert and oriented x4-calm and cooperative. Patient continues to deny pain and discomfort. Incontinence and stewart care provided. Denying any additional needs, call light placed within reach, bed in lowest position and alarm engaged to promote patient safety. Will continue to monitor. * Panchito Crockett RN - 06/23/2022 12:00 AM EDT Tobacco Drier Operator attempted to place rowe catheter at this time- unable to advance 16 FR catheter. Rn Retail Security Professional notified and will attempt- will continue to monitor. Patient reports no pain or discomfort. * Panchito Crockett RN - 06/22/2022 11:12 PM EDT Tobacco Drier Operator phoned Dr. Garcia at this informing physician [...] continue to monitor. documented in this encounterBON [employer] Mobile Phone: [phone]) 985-740403-31-2023 Hospital Discharge instructions* Discharge Instructions* Fabby Felder [...] most local grocery stores, pharmacies, and chain eGames-stores. If you have any questions about your diet or nutrition, call the hospital and ask for the dietitian. Regular documented in this encounterBON [employer] Work Phone: 1([phone] 508-175003-07-2023 Progress note Author Cathy Brar [facility] June 02, 2022 12:14pm Note Date/Time June 02, 2022 12:[address] [facility] [address] [place] [address] Wound Center Provider Note Signed Patient: Ganga Stinson MR#: [id number] : 1960 Acct:[id number] Age/Sex: 61 / M Copies to: MD Fidel Whitmore MD~ HPI Date of Visit Date of Visit: Date of Service: 06/02/2022 Time of Service: 12:01 Narrative HPI: Patient is being followed for his chronic bilateral ischial, sacral and right foot ulcers. His is doing his dressing changes. Patient has been having some right hip pain and underwent a CT scan in [place] on 03/14/2022. This showed slight deepening of [...] Sacrum: Bed Appearance: Beefy Red, Bone Palpable, [place] and Yellow Percent of Wound Bed Granulated/Red: 90 Percent of Devitalized: 10 Length (cm): 3.5 Width (cm): 1.8 Depth (cm): 2 CM Sq: 6.300 Undermining Position: 360 Undermining Depth: 3 Surrounding Tissue Appearance: [place] Surrounding Tissue Temp: Warm Drainage Amount: Large Drainage Description: Serosanguineous Drainage Odor: No Odor Left Ischium: Bed Appearance: Beefy Red, Bone Palpable, [place] and Yellow Percent of Wound Bed Granulated/Red: 90 Percent of Devitalized: 10 Length (cm): 7 Width (cm): 6 Depth (cm): 5.5 CM Sq: 42.000 Surrounding Tissue Appearance: [place] Surrounding Tissue Temp: Warm Drainage Amount: Large Drainage Description: Serosanguineous Drainage Odor: No Odor Right Ischium: Bed Appearance: Beefy Red, Bone Palpable, [place] and Yellow Percent of Wound Bed Granulated/Red: 90 Percent of Devitalized: 10 Length (cm): 0.7 Width (cm): 1 Depth (cm): 4 CM Sq: 0.700 Surrounding Tissue Appearance: [place] Surrounding Tissue Temp: Warm Drainage Amount: Moderate Drainage Description: Serosanguineous Drainage Odor: No Odor Left Ankle: Bed Appearance: Brown, [place] and Yellow Percent of Wound Bed Granulated/Red: 5 Percent of Devitalized: 95 Length (cm): 3.5 Width (cm): 2.5 Depth (cm): 0.1 CM Sq: 8.750 Surrounding Tissue Appearance: [place] Surrounding Tissue Temp: Warm Drainage Amount: Moderate Drainage Description: Serosanguineous Drainage Odor: No Odor Medial Ankle: Bed Appearance: Brown, [place] and Yellow Percent of Wound Bed Granulated/Red: 50 Percent of Devitalized: 50 Length (cm): 3.5 Width (cm): 4 Depth (cm): 0.1 CM Sq: 14.000 Surrounding Tissue Appearance: [place] Surrounding Tissue Temp: Warm Drainage Amount: Moderate Drainage Description: Serosanguineous Drainage Odor: No Odor Medial Foot: Bed Appearance: Black Dry, Brown, [place] and Hardware Percent of Wound Bed Granulated/Red: 5 Percent of Devitalized: 95 Length (cm): 2 Width (cm): 1.2 Depth (cm): 0.1 CM Sq: 2.400 Surrounding Tissue Appearance: [place] Surrounding Tissue Temp: Warm Drainage Amount: Moderate [...] with other skin ulcer; Z79.4 - intermediate project manager (current) use of insulin Code(s): E11.9 - [...] <Electronically signed by MD Cathy Brar> 06/02/22 [address] [facility] Work Phone: [phone]) 942-231312-06-2022 Progress note Author Cathy Brar [facility] March 03, 2022 12:06pm Note Date/Time March 03, 2022 1 2:06pm [facility] [address] [place] [address] Wound Center Provider Note Signed Patient: Ganga Stinson MR#: [id number] : 1960 Acct:[id number] Age/Sex: 61 / M Copies to: MD [...] Ischium: Bed Appearance: Beefy Red, Bone Palpable, [place] and Yellow Percent of Wound Bed Granulated/Red: [...] Bed Appearance: Beefy Red, Bone Palpable, Devitalized, [place], Yellow and Rolled Edges Percent of Wound Bed Granulated/Red: 50 Percent of Devitalized: 50 Length (cm): 0.7 Width (cm): 0.8 Depth (cm): 4.0 CM Sq: 0.560 Undermining Position: 0 Undermining Depth: 0 Surrounding Tissue Appearance: Macerated and Rolled Edges Surrounding Tissue Temp: Warm Drainage Amount: Moderate Drainage Description: Serosanguineous Drainage Odor: No Odor Lidocaine Applied Topically: 2% Jelly Right Buttock: Bed Appearance: Devitalized, [place] and Yellow Percent of Wound Bed Granulated/Red: 100 Percent of Devitalized: 0 Length (cm): 0 Width (cm): 0 Depth (cm): 0 CM Sq: 0.000 Surrounding Tissue Appearance: Hyperpigmented Surrounding Tissue Temp: Warm Drainage Amount: None Drainage Description: Serosanguineous Drainage Odor: No Odor Lidocaine Applied Topically: 2% Jelly Right Lower Medial Leg: Bed Appearance: [place] and Yellow Percent of Wound Bed Granulated/Red: [...] mellitus type: type 2 Diabetes mellitus intermediate project manager insulin use:with detention use Diabetes mellitus complication status: with skin complications Diabetes mellitus complication detail: with other skin ulcer Qualified Code(s): E11.622 - Type 2 diabetes mellitus with other skin ulcer; Z79.4 - longterm (current) use of insulin Code(s): E11.9 - [...] <Electronically signed by MD Cathy Brar> 03/03/22 [facility] Work Phone: 1(225) 104-276312-02-2022 NotePROCEDURE: XR HIP RT 2 3V W [...] Electronically authenticated by: KHADAR MEDINA Date: 2022-02-27 07:17[facility]11-01-2022 Progress note Author Cathy Brar [facility] January 27, 2022 12:11pm Note Date/Time January 27, 2022 1 2:11pm [facility] [address] [place] [address] Wound Center Provider Note Signed Patient: Ganga Stinson MR#: [id number] : 1960 Acct:[id number] Age/Sex: 61 / M Copies to: MD [...] 360 Undermining Depth: 3.5 Surrounding Tissue Appearance: [place] and Rolled Edges Surrounding Tissue Temp: Warm Drainage Amount: Large Drainage Description: Serosanguineous Drainage Odor: No Odor Lidocaine Applied Topically: 2% Jelly Right Heel: Bed Appearance: Beefy Red, [place] and Yellow Percent of Wound Bed Granulated/Red: 50 Percent of Devitalized: 50 Length (cm): 1.0 Width (cm): 1.4 Depth (cm): 0.1 CM Sq: 1.400 Surrounding Tissue Appearance: Peeling and Dryness Surrounding Tissue Temp: Warm Drainage Amount: Small Drainage Description: Serosanguineous Drainage Odor: No Odor Lidocaine Applied Topically: 2% Jelly Right Ischium: Bed Appearance: Beefy Red, Bone Palpable, [place] and Yellow Percent of Wound Bed Granulated/Red: [...] Bed Appearance: Beefy Red, Bone Palpable, Devitalized, [place], Yellow and Rolled Edges Percent of Wound Bed Granulated/Red: 50 Percent of Devitalized: 50 Length (cm): 1.5 Width (cm): 1.0 Depth (cm): 4.0 CM Sq: 1.500 Undermining Position: 10-3:00 Undermining Depth: 3.5 Surrounding Tissue Appearance: Macerated and Rolled Edges Surrounding Tissue Temp: Warm Drainage Amount: Moderate Drainage Description: Serosanguineous Drainage Odor: No Odor Lidocaine Applied Topically: 2% Jelly Right Buttock: Bed Appearance: Devitalized, [place] and Yellow Percent of Wound Bed Granulated/Red: 100 Percent of Devitalized: 0 Length (cm): 0 Width (cm): 0 Depth (cm): 0 CM Sq: 0.000 Surrounding Tissue Appearance: [place] Surrounding Tissue Temp: Warm Drainage Amount: None Drainage Description: Serosanguineous Drainage Odor: No Odor Lidocaine Applied Topically: 2% Jelly Right Lower Medial Leg: Bed Appearance: [place] and Yellow Percent of Wound Bed Granulated/Red: [...] type 2 Diabetes mellitus detention insulin use:with intermediate project manager use Diabetes mellitus complication status: with skin complications Diabetes mellitus complication detail: with other skin ulcer Qualified Code(s): E11.622 - Type 2 diabetes mellitus with other skin ulcer; Z79.4 - intermediate project manager (current) use of insulin Code(s): E11.9 - [...] 01/27/22 12[address] [facility] Work Phone: 1([phone] 528-114309-27-2022 Progress note Author Cathy Brar [facility] December 23, 2021 12:32pm Note Date/Time December 23, 2021 12:32pm [facility] [address] [place] [address] Wound Center Provider Note Signed Patient: Ganga Stinson MR#: [id number] : 1960 Acct:[id number] Age/Sex: 61 / M Copies to: MD [...] Bed Appearance: Beefy Red, Bone Palpable, Devitalized, [place] and Yellow Percent of Wound Bed Granulated/Red: 95 Percent of Devitalized: 5 Length (cm): 3.2 Width (cm): 2 Depth (cm): 2.5 CM Sq: 6.400 Undermining Position: 10-4:00 Undermining Depth: 5 Surrounding Tissue Appearance: [place] and Macerated Surrounding Tissue Temp: Warm Drainage Amount: Large Drainage Description: Serosanguineous Drainage Odor: No Odor Lidocaine Applied Topically: 2% Jelly Right Heel: Bed Appearance: Beefy Red, Devitalized, Epithelial Tissue or Bridge, [place] and Yellow Percent of Wound Bed Granulated/Red: 90 Percent of Devitalized: 10 Length (cm): 3 Width (cm): 8 Depth (cm): 0.1 CM Sq: 24.000 Surrounding Tissue Appearance: Peeling and Dryness Surrounding Tissue Temp: Warm Drainage Amount: Large Drainage Description: Serosanguineous Drainage Odor: No Odor Lidocaine Applied Topically: 2% Jelly Right Ischium: Bed Appearance: Beefy Red, Bone Palpable, Devitalized, Epithelial Tissue or Bridge, [place] and Yellow Percent of Wound Bed Granulated/Red: 95 Percent of Devitalized: 5 Length (cm): 5 Width (cm): 5 Depth (cm): 5 CM Sq: 25.000 Undermining Position: 12-6:00 Undermining Depth: 1 Surrounding Tissue Appearance: Macerated Surrounding Tissue Temp: Warm Drainage Amount: Large Drainage Description: Serosanguineous Drainage Odor: No Odor Lidocaine Applied Topically: 2% Jelly Left Ischium: Bed Appearance: Beefy Red, Bone Palpable, Devitalized, [place] and Yellow Percent of Wound Bed Granulated/Red: 95 Percent of Devitalized: 5 Length (cm): 1.6 Width (cm): 1.6 Depth (cm): 3.5 CM Sq: 2.560 Undermining Position: 10-3:00 Undermining Depth: 3.5 Surrounding Tissue Appearance: Macerated Surrounding Tissue Temp: Warm Drainage Amount: Moderate Drainage Description: Serosanguineous Drainage Odor: No Odor Lidocaine Applied Topically: 2% Jelly Right Buttock: Bed Appearance: Devitalized, [place] and Yellow Percent of Wound Bed Granulated/Red: 95 Percent of Devitalized: 5 Length (cm): 1.5 Width (cm): 0.5 Depth (cm): 0.1 CM Sq: 0.750 Surrounding Tissue Appearance: [place] and Callous Surrounding Tissue Temp: Warm Drainage Amount: Small Drainage Description: Serosanguineous Drainage Odor: No Odor Lidocaine Applied Topically: 2% Jelly Right Lower Lateral Leg: Bed Appearance: Beefy Red, Devitalized, [place] and Yellow Percent of Wound Bed Granulated/Red: 10 Percent of Devitalized: 90 Length (cm): 0 Width (cm): 0 Depth (cm): 0 CM Sq: 0.000 Surrounding Tissue Appearance: Hyperpigmented Surrounding Tissue Temp: Warm Drainage Amount: None Drainage Description: Serosanguineous Drainage Odor: No Odor Lidocaine Applied Topically: 2% Jelly Right Lower Medial Leg: Bed Appearance: Devitalized, Epithelial Tissue or Bridge, [place] and Yellow Percent of Wound Bed Granulated/Red: [...] mellitus with other skin ulcer; Z79.4 - longterm (current) use of insulin Code(s): E11.9 - [...] signed by MD Cathy Brar> 12/23/21 12[address] [facility] Work Phone: 1(878) 667-981208-23-2022 Progress note Author Cathy Brar [facility] November 18, 2021 11:55am Note Date/Time November 18, 2021 11 :55am [facility] [address] [place] [address] Wound Center Provider Note Signed Patient: Ganga Stinson MR#: [id number] : 1960 Acct:[id number] Age/Sex: 61 / M Copies to: MD [...] Bed Appearance: Beefy Red, Bone Palpable, Devitalized, [place] and Yellow Percent of Wound Bed Granulated/Red: 75 Percent of Devitalized: 25 Length (cm): 3.5 Width (cm): 2.0 Depth (cm): 2.5 CM Sq: 7.000 Undermining Position: 360 (deepest at 3) Undermining Depth: 3.5 Surrounding Tissue Appearance: Hyperpigmented Surrounding Tissue Temp: Warm Drainage Amount: Large Drainage Description: Serosanguineous Drainage Odor: No Odor Lidocaine Applied Topically: 2% Jelly Right Heel: Bed Appearance: Devitalized, [place] and Yellow Percent of Wound Bed Granulated/Red: 1 Percent of Devitalized: 99 Length (cm): 1.6 Width (cm): 2.3 Depth (cm): 0.1 CM Sq: 3.680 Surrounding Tissue Appearance: Hyperpigmented Surrounding Tissue Temp: Warm Drainage Amount: Large Drainage Description: Serosanguineous Drainage Odor: No Odor Lidocaine Applied Topically: 2% Jelly Right Ischium: Bed Appearance: Beefy Red, Bone Palpable, Devitalized, Epithelial Tissue or Bridge, [place] and Yellow Percent of Wound Bed Granulated/Red: [...] Bed Appearance: Beefy Red, Bone Palpable, Devitalized, [place] and Yellow Percent of Wound Bed Granulated/Red: 90 Percent of Devitalized: 10 Length (cm): 2.0 Width (cm): 2.0 Depth (cm): 3.5 CM Sq: 4.000 Undermining Position: 9-11:00 Undermining Depth: 4.0 Surrounding Tissue Appearance: Hyperpigmented Surrounding Tissue Temp: Warm Drainage Amount: Moderate Drainage Description: Serosanguineous Drainage Odor: No Odor Lidocaine Applied Topically: 2% Jelly Right Buttock: Bed Appearance: Beefy Red, Devitalized, [place] and Yellow Percent of Wound Bed Granulated/Red: 95 Percent of Devitalized: 5 Length (cm): 2.4 Width (cm): 1.0 Depth (cm): 0.1 CM Sq: 2.400 Surrounding Tissue Appearance: Hyperpigmented Surrounding Tissue Temp: Warm Drainage Amount: Moderate Drainage Description: Serosanguineous Drainage Odor: No Odor Lidocaine Applied Topically: 2% Jelly Right Lower Lateral Leg: Bed Appearance: Beefy Red, Devitalized, [place] and Yellow Percent of Wound Bed Granulated/Red: 10 Percent of Devitalized: 90 Length (cm): 1.3 Width (cm): 1.4 Depth (cm): 0.1 CM Sq: 1.820 Surrounding Tissue Appearance: Hyperpigmented Surrounding Tissue Temp: Warm Drainage Amount: Moderate Drainage Description: Serosanguineous Drainage Odor: No Odor Lidocaine Applied Topically: 2% Jelly Right Lower Medial Leg: Bed Appearance: Black Dry, Devitalized, Epithelial Tissue or Bridge, [place] and Yellow Percent of Wound Bed Granulated/Red: [...] mellitus with other skin ulcer; Z79.4 - longterm (current) use of insulin Code(s): E11.9 - [...] <Electronically signed by MD Cathy Brar> 11/18/[address] [place] [address] Work Phone: [phone] Progress note Author Cathy Brar [facility] October 21, 2021 11:44am Note Date/Time October 21, 2021 11:[address] [facility] [address] [place] [address] Wound Center Provider Note Signed Patient: Ganga Stinson MR#: [id number] : 1960 Acct:[id number] Age/Sex: 61 / M Copies to: MD [...] Bed Appearance: Beefy Red, Bone Palpable, Devitalized, [place] and Yellow Percent of Wound Bed Granulated/Red: 75 Percent of Devitalized: 25 Length (cm): 4.2 Width (cm): 3.0 Depth (cm): 3.0 CM Sq: 12.600 Undermining Position: 360 (deepest at 3) Undermining Depth: 3.5 Surrounding Tissue Appearance: Hyperpigmented Surrounding Tissue Temp: Warm Drainage Amount: Large Drainage Description: Serosanguineous Drainage Odor: No Odor Lidocaine Applied Topically: 2% Jelly Right Heel: Bed Appearance: Devitalized, [place] and Yellow Percent of Wound Bed Granulated/Red: 50 Percent of Devitalized: 50 Length (cm): 2.3 Width (cm): 3.2 Depth (cm): 0.1 CM Sq: 7.360 Surrounding Tissue Appearance: Hyperpigmented Surrounding Tissue Temp: Warm Drainage Amount: Large Drainage Description: Serosanguineous Drainage Odor: No Odor Lidocaine Applied Topically: 2% Jelly Right Ischium: Bed Appearance: Beefy Red, Bone Palpable, Devitalized, Epithelial Tissue or Bridge, [place] and Yellow Percent of Wound Bed Granulated/Red: [...] Bed Appearance: Beefy Red, Bone Palpable, Devitalized, [place] and Yellow Percent of Wound Bed Granulated/Red: 90 Percent of Devitalized: 10 Length (cm): 3.0 Width (cm): 1.6 Depth (cm): 4.5 CM Sq: 4.800 Undermining Position: 9-11:00 Undermining Depth: 1.0 Surrounding Tissue Appearance: Hyperpigmented Surrounding Tissue Temp: Warm Drainage Amount: Moderate Drainage Description: Serosanguineous Drainage Odor: No Odor Lidocaine Applied Topically: 2% Jelly Right Buttock: Bed Appearance: Beefy Red, Devitalized, [place] and Yellow Percent of Wound Bed Granulated/Red: 80 Percent of Devitalized: 20 Length (cm): 2.2 Width (cm): 1.1 Depth (cm): 0.1 CM Sq: 2.420 Surrounding Tissue Appearance: Hyperpigmented Surrounding Tissue Temp: Warm Drainage Amount: Moderate Drainage Description: Serosanguineous Drainage Odor: No Odor Lidocaine Applied Topically: 2% Jelly Right Lower Lateral Leg: Bed Appearance: Beefy Red, Devitalized, [place] and Yellow Percent of Wound Bed Granulated/Red: 10 Percent of Devitalized: 90 Length (cm): 1.3 Width (cm): 1.4 Depth (cm): 0.1 CM Sq: 1.820 Surrounding Tissue Appearance: Hyperpigmented Surrounding Tissue Temp: Warm Drainage Amount: Moderate Drainage Description: Serosanguineous Drainage Odor: No Odor Lidocaine Applied Topically: 2% Jelly Right Lower Medial Leg: Bed Appearance: Black Dry, Devitalized, [place] and Yellow Percent of Wound Bed Granulated/Red: 80 Percent of Devitalized: 20 Length (cm): 1.6 Width (cm): 2.5 Depth (cm): 0.1 CM Sq: 4.000 Surrounding Tissue Appearance: Hyperpigmented Surrounding Tissue Temp: Warm Drainage Amount: Moderate Drainage Description: Serosanguineous Drainage Odor: No Odor Lidocaine Applied Topically: 2% Jelly Right Foot: Bed Appearance: Beefy Red, Devitalized, Epithelial Tissue or Bridge, [place] and Yellow Percent of Wound Bed Granulated/Red: [...] mellitus with other skin ulcer; Z79.4 - longterm (current) use of insulin Code(s): E11.9 - [...] signed by MD Cathy Brar> 10/21/21 1144 [facility] Work Phone: 1([phone] 552-370106-21-2022 Progress note Author Cathy Brar [facility] September 16, 2021 11:55am Note Date/Time September 16, 2021 11:[address] [facility] [address] [place] [address] Wound Center Provider Note Signed Patient: Ganga Stinson MR#: [id number] : 1960 Acct:[id number] Age/Sex: 61 / M Copies to: MD [...] Wound/Ulcer Sacrum: Bed Appearance: Bone Palpable, Devitalized, [place] and Yellow Percent of Wound Bed Granulated/Red: [...] Heel: Bed Appearance: Black Moist, Brown, Devitalized, [place] and Yellow Percent of Wound Bed Granulated/Red: 95 Percent of Devitalized: 5 Length (cm): 3.4 Width (cm): 5.1 Depth (cm): 0.1 CM Sq: 17.340 Surrounding Tissue Appearance: Hyperpigmented Surrounding Tissue Temp: Warm Drainage Amount: Large Drainage Description: Serosanguineous Drainage Odor: No Odor Lidocaine Applied Topically: 2% Jelly Right Ischium: Bed Appearance: Beefy Red, Devitalized, Epithelial Tissue or Bridge, [place] and Yellow Percent of Wound Bed Granulated/Red: 90 Percent of Devitalized: 10 Length (cm): 5.1 Width (cm): 5.5 Depth (cm): 4 CM Sq: 28.050 Undermining Position: 1-3:00 Undermining Depth: 1.5 Surrounding Tissue Appearance: Hyperpigmented Surrounding Tissue Temp: Warm Drainage Amount: Large Drainage Description: Serosanguineous Drainage Odor: No Odor Lidocaine Applied Topically: 2% Jelly Left Ischium: Bed Appearance: Beefy Red, Bone Palpable, Devitalized, [place] and Yellow Percent of Wound Bed Granulated/Red: 90 Percent of Devitalized: 10 Length (cm): 3.9 Width (cm): 1.8 Depth (cm): 5 CM Sq: 7.020 Undermining Position: 9-11:00 Undermining Depth: 2.2 Surrounding Tissue Appearance: Hyperpigmented Surrounding Tissue Temp: Warm Drainage Amount: Moderate Drainage Description: Serosanguineous Drainage Odor: No Odor Lidocaine Applied Topically: 2% Jelly Right Buttock: Bed Appearance: Beefy Red, Devitalized, [place] and Yellow Percent of Wound Bed Granulated/Red: 99 Percent of Devitalized: 1 Length (cm): 2.3 Width (cm): 0.9 Depth (cm): 0.2 CM Sq: 2.070 Surrounding Tissue Appearance: Hyperpigmented Surrounding Tissue Temp: Warm Drainage Amount: Moderate Drainage Description: Serosanguineous Drainage Odor: No Odor Lidocaine Applied Topically: 2% Jelly Right Lower Lateral Leg: Bed Appearance: Beefy Red, Devitalized, [place] and Yellow Percent of Wound Bed Granulated/Red: 20 Percent of Devitalized: 80 Length (cm): 3.8 Width (cm): 2.3 Depth (cm): 0.1 CM Sq: 8.740 Surrounding Tissue Appearance: Hyperpigmented Surrounding Tissue Temp: Warm Drainage Amount: Moderate Drainage Description: Serosanguineous Drainage Odor: No Odor Lidocaine Applied Topically: 2% Jelly Right Lower Medial Leg: Bed Appearance: Black Dry, Devitalized, [place] and Yellow Percent of Wound Bed Granulated/Red: 75 Percent of Devitalized: 25 Length (cm): 2.5 Width (cm): 2.7 Depth (cm): 0.2 CM Sq: 6.750 Surrounding Tissue Appearance: Hyperpigmented Surrounding Tissue Temp: Warm Drainage Amount: Moderate Drainage Description: Serosanguineous Drainage Odor: No Odor Lidocaine Applied Topically: 2% Jelly Right Foot: Bed Appearance: Beefy Red, Devitalized, Epithelial Tissue or Bridge, [place] and Yellow Percent of Wound Bed Granulated/Red: [...] type 2 Diabetes mellitus detention insulin use:with intermediate project manager use Diabetes mellitus complication status: with skin complications Diabetes mellitus complication detail: with other skin ulcer Qualified Code(s): E11.622 - Type 2 diabetes mellitus with other skin ulcer; Z79.4 - longterm (current) use of insulin Code(s): E11.9 - [...] <Electronically signed by MD Cathy Brar> 09/16/21 35[address] [facility] Work Phone: 1(298) 604-810305-03-2022 Progress note Author Cathy Brar [facility] July 29, 2021 12:33pm Note Date/Time July 29, 2021 12:33p m [facility] [address] [place] [address] Wound Center Provider Note Signed Patient: Ganga Stinson MR#: [id number] : 1960 Acct:[id number] Age/Sex: 61 / M Copies to: MD [...] down Wound/Ulcer Sacrum: Bed Appearance: Bone Palpable, [place] and Yellow Percent of Wound Bed Granulated/Red: 50 Percent of Devitalized: 50 Length (cm): 2.6 Width (cm): 2.0 Depth (cm): 3.0 CM Sq: 5.200 Undermining Position: 9-4 (deepest at 4) Undermining Depth: 5.4 Surrounding Tissue Appearance: Hyperpigmented Surrounding Tissue Temp: Warm Drainage Amount: Large Drainage Description: Serosanguineous Drainage Odor: No Odor Lidocaine Applied Topically: 2% Jelly Right Heel: Bed Appearance: Black Moist, Brown, [place] and Yellow Percent of Wound Bed Granulated/Red: 15 Percent of Devitalized: 85 Length (cm): 6.0 Width (cm): 9.0 Depth (cm): 0.5 CM Sq: 54.000 Surrounding Tissue Appearance: Hyperpigmented Surrounding Tissue Temp: Warm Drainage Amount: Large Drainage Description: Serosanguineous Drainage Odor: No Odor Lidocaine Applied Topically: 2% Jelly Right Ischium: Bed Appearance: Beefy Red, Epithelial Tissue or Bridge, [place] and Yellow Percent of Wound Bed Granulated/Red: 50 Percent of Devitalized: 50 Length (cm): 9.3 Width (cm): 7.9 Depth (cm): 5.2 CM Sq: 73.470 Undermining Position: 360 (deepest at 7) Undermining Depth: 2.3 Surrounding Tissue Appearance: Hyperpigmented Surrounding Tissue Temp: Warm Drainage Amount: Large Drainage Description: Serosanguineous Drainage Odor: No Odor Lidocaine Applied Topically: 2% Jelly Left Ischium: Bed Appearance: [place] and Yellow Percent of Wound Bed Granulated/Red: 50 Percent of Devitalized: 50 Length (cm): 1.7 Width (cm): 1.5 Depth (cm): 3.5 CM Sq: 2.550 Undermining Position: 3-8 Undermining Depth: 4.5 Surrounding Tissue Appearance: Hyperpigmented Surrounding Tissue Temp: Warm Drainage Amount: Moderate Drainage Description: Serosanguineous Drainage Odor: No Odor Lidocaine Applied Topically: 2% Jelly Right Buttock: Bed Appearance: Beefy Red, [place] and Yellow Percent of Wound Bed Granulated/Red: 75 Percent of Devitalized: 25 Length (cm): 6.6 Width (cm): 2.0 Depth (cm): 0.1 CM Sq: 13.200 Surrounding Tissue Appearance: Hyperpigmented Surrounding Tissue Temp: Warm Drainage Amount: Moderate Drainage Description: Serosanguineous Drainage Odor: No Odor Lidocaine Applied Topically: 2% Jelly Right Lower Lateral Leg: Bed Appearance: Beefy Red, [place] and Yellow Percent of Wound Bed Granulated/Red: 50 Percent of Devitalized: 50 Length (cm): 1.8 Width (cm): 1.5 Depth (cm): 0.1 CM Sq: 2.700 Surrounding Tissue Appearance: Hyperpigmented Surrounding Tissue Temp: Warm Drainage Amount: Moderate Drainage Description: Serosanguineous Drainage Odor: No Odor Lidocaine Applied Topically: 2% Jelly Right Lower Medial Leg: Bed Appearance: Black Dry, [place] and Yellow Percent of Wound Bed Granulated/Red: [...] with other skin ulcer; Z79.4 - intermediate project manager (current) use of insulin Code(s): E11.9 - [...] will attempt to obtain that note from creative services intern in [place]. See Instructions for Orders See Instructions for Orders See Wound Discharge Instructions for Orders: Patient may require serial debridement to remove devitalized tissue and encourage granulation. Dictated By: Cathy Brar MD DD/ [id number] Signed By: <Electronically signed by MD Cathy Brar> 07/29/21 1233 [facility] Work Phone: Evaluation + Plan note No data available for this section [facility] evaluation note* Diagnosis Onset Date Resolution Status Right hip pain acute Stage IV pressure ulcer of sacral region acute Unstageable pressure ulcer of right heel acute Cauda equina spinal cord injury chronic Diabetes chronic Pressure ulcer of left hip, stage 3 resolved Pressure ulcer of right hip, stage 3 resolved [facility] Work Phone: Evaluation note* Diagnosis Neurogenic bladder Neurogenic bladder, NOS documented in this encounter [facility] Work Phone: evaluation note* Diagnosis Neurogenic bladder Neurogenic bladder, NOS documented in this encounter [facility] Phone: [email or web address] note* Diagnosis Hyperkalemia- Primary Hyperpotassemia Acute kidney [...] of neurogenic bladder documented in this encounter [facility] Phone: [email or web address] note* Diagnosis Acute kidney injury (HCC) Acute kidney failure, unspecified Iron deficiency anemia, unspecified iron deficiency anemia type documented in this encounter [facility] Phone: evaluation note* Diagnosis Onset Date Resolution Status Pressure injury of left ischium, stage 4 acute Pressure injury of right ischium, stage 4 acute Pressure ulcer of right foot, stage 2 acute Right hip pain acute 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 Diabetes [facility] Work Phone: Evaluation note* Diagnosis Cauda equina syndrome (HCC) Cauda equina syndrome without mention of neurogenic bladder Neurogenic bladder Neurogenic bladder, NOS Urinary retention Retention of urine, unspecified Urinary incontinence without sensory awareness Incontinence without sensory awareness documented in this encounter [email or web address] note* Diagnosis Cellulitis of left foot- Primary Ulcer of left ankle, with necrosis of bone (HCC) ([facility]) Diabetes mellitus due to underlying condition with diabetic polyneuropathy, unspecified whether detention insulin use ([facility]/HCC) Acute complete paraplegia ([facility]/HCC) Acute osteomyelitis of left fibula ([facility]/HCC) Foot ulcer, right, with fat layer exposed ([facility]) Venous insufficiency Unspecified venous (peripheral) insufficiency documented in this encounter [facility]* Diagnosis Abscess of toe, right- Primary documented in this encounter [facility]* Diagnosis Onset Date Resolution Status [id number] acute Foot ulcer with fat layer exposed acute Stage IV pressure ulcer of right buttock acute 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 buttock, stage 3 chronic [facility] Work Phone: Evaluation note* Diagnosis Type 2 diabetes mellitus with hyperglycemia, without long-term current use of insulin ([facility]/HCC)- Primary Dyslipidemia (CMS/HCC) Other and unspecified hyperlipidemia Benign hypertension (CMS/HCC) Essential hypertension, benign Major depressive disorder, recurrent episode, mild (HCC) ([facility]/HCC) Major depressive disorder, recurrent episode, mild Incontinence overflow, urine Overflow incontinence Chronic superficial 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 Type 2 diabetes mellitus with hyperglycemia, without long-term current use of insulin ([facility]/HCC)- Primary Benign hypertension (CMS/HCC) Essential hypertension, benign Major depressive disorder, recurrent episode, mild (HCC) (CMS/HCC) Major depressive disorder, recurrent episode, mild Incontinence overflow, urine Overflow incontinence Pruritus Unspecified pruritic disorder Chronic kidney disease, stage 3a (HCC) ([facility]) Encounter for long-term (current) use of medications Encounter for long-term (current) use of other medications Cauda equina syndrome ([facility]) Cauda equina syndrome without mention of neurogenic bladder Urticaria- Primary Unspecified urticaria documented in this encounter [facility]* Diagnosis Type 2 diabetes mellitus [...] disorder Chronic kidney disease, stage 3a (HCC) ([facility]) Encounter for long-term (current) use of medications Encounter for long-term (current) use of other medications Cauda equina syndrome ([facility]/HCC) Cauda equina syndrome without mention of neurogenic bladder Urticaria- Primary Unspecified urticaria Pruritus Unspecified pruritic disorder documented in this encounter [facility]* Diagnosis Type 2 diabetes mellitus with hyperglycemia, without long-term current use of insulin ([facility])- Primary Benign hypertension ([facility]) Essential hypertension, benign Major depressive disorder, recurrent episode, mild (HCC) ([facility]) Major depressive disorder, recurrent episode, mild Incontinence overflow, urine Overflow incontinence Pruritus Unspecified pruritic disorder Chronic kidney disease, stage 3a (HCC) ([facility]) Encounter for long-term (current) use of medications Encounter for long-term (current) use of other medications Cauda equina syndrome ([facility]) Cauda equina syndrome without mention of neurogenic bladder documented in this encounter [facility]* Diagnosis Type 2 diabetes mellitus with hyperglycemia, without long-term current use of insulin ([facility])- Primary Dyslipidemia ([facility]) Other and unspecified hyperlipidemia Benign hypertension ([facility]) Essential hypertension, benign Major depressive disorder, recurrent episode, mild (HCC) ([facility]) Major depressive disorder, recurrent episode, mild Incontinence overflow, urine Overflow incontinence Chronic superficial 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 Type 2 diabetes mellitus with hyperglycemia, without long-term current use of insulin ([facility])- Primary Benign hypertension ([facility]) Essential hypertension, benign Major depressive disorder, recurrent episode, mild (HCC) ([facility]) Major depressive disorder, recurrent episode, mild Incontinence overflow, urine Overflow incontinence Pruritus Unspecified pruritic disorder Chronic kidney disease, stage 3a (HCC) ([facility]) Encounter for long-term (current) use of medications Encounter for long-term (current) use of other medications Cauda equina syndrome ([facility]) Cauda equina syndrome without mention of neurogenic bladder Urticaria- Primary Unspecified urticaria Type 2 diabetes mellitus with hyperglycemia, without long-term current use of insulin ([facility])- Primary Benign hypertension ([facility]) Essential hypertension, benign Major depressive disorder, recurrent episode, mild (HCC) ([facility]) Major depressive disorder, recurrent episode, mild Incontinence overflow, urine Overflow incontinence Chronic superficial 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 Urticaria Unspecified urticaria Pruritus Unspecified pruritic disorder Annual physical exam Routine general medical examination at a health care facility Chronic kidney disease, stage 3a (HCC) ([facility]) Class 2 severe obesity due to excess calories with serious comorbidity and body mass index (BMI) of 36.0 to 36.9 in adult ([facility]) Type 2 diabetes mellitus with other specified complication Hyperlipidemia, unspecified (CMS/HCC) Pressure ulcer of right heel, unstageable ([facility]) Type 2 diabetes mellitus with other skin ulcer (CODE) Paraplegia, unspecified Diabetes mellitus due to underlying condition with diabetic polyneuropathy ([facility]) documented in this encounter [facility] HealthcareEvaluation [facility]* Diagnosis Type 2 diabetes [...] pruritic disorder Chronic kidney disease, stage 3a ([facility]) Encounter for long-term (current) use of medications [...] care facility Chronic kidney disease, stage 3a ([facility]) Class 2 severe obesity due to excess calories with serious comorbidity and body mass index (BMI) of 36.0 to 36.9 in adult ([facility]) Type 2 diabetes mellitus with other specified complication (HCC) Hyperlipidemia, unspecified Pressure ulcer of right heel, unstageable (CMS-HCC) Type 2 diabetes mellitus with other skin ulcer (CODE) (HCC) Paraplegia, unspecified (HCC) Diabetes mellitus due to underlying condition with diabetic polyneuropathy (HCC) Type 2 diabetes mellitus with hyperglycemia, without long-term current use of insulin (HCC) documented in this encounter [facility] HealthcareEvaluation note* Diagnosis Type 2 diabetes mellitus [...] pruritic disorder Chronic kidney disease, stage 3a ([facility]) Encounter for long-term (current) use of medications Encounter for long-term (current) use of other medications Cauda equina syndrome ([facility]) Cauda equina syndrome without mention of neurogenic [...] care facility Chronic kidney disease, stage 3a ([facility]) Class 2 severe obesity due to excess calories with serious comorbidity and body mass index (BMI) of 36.0 to 36.9 in adult ([facility]) Type 2 diabetes mellitus with other specified complication (HCC) Hyperlipidemia, unspecified Pressure ulcer of right heel, unstageable ([facility]) Type 2 diabetes mellitus with other skin ulcer (CODE) ([facility]) Paraplegia, unspecified (HCC) Diabetes mellitus due to underlying condition with diabetic polyneuropathy ([facility]) Primary hypertension Unspecified essential hypertension Benign hypertension Essential hypertension, benign Type 2 diabetes mellitus with hyperglycemia, without long-term current use of insulin (HCC) Dyslipidemia Other and unspecified hyperlipidemia documented in this encounter [facility] Discharge instructions Additional Instructions DISCHARGE INSTRUCTIONS [...] operative site FOLLOW UP Phone numbers: Office [phone] [facility] Work Phone: Hospital Discharge instructions No data available for this section [facility] Hospital Discharge instructions Additional Instructions Wound/Ulcer Instructions/Orders Left Ischium: Dressing: Cleanse with Dakins or saline, saline on 4X4 gauze packing or kerlix, ABD, Kerlix, drawtex, Secure/wrap: Skin prep prior to adhesive Frequency: [facility] Work Phone: InstructionsNot on filedocumented in this encounter [facility] No data available for this section [facility] reason for referral (narrative)No reason for referral information availableAcmc Healthcare [facility] Work Phone: Summary Purpose Family History No [...] Fibula Osteomyelitis, Diabetes, Ulcerative Reason for Visit [id number] Foot ulcer with fat layer exposed 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 Cauda equina spinal cord injury Pressure ulcer of left buttock, stage 3 Chief Complaint Open Wound Left Fibula Osteomyelitis, Diabetes, Ulcerative Unknown Reason for Visit [id number] Foot ulcer with fat layer exposed Stage [...] EKG 12 Lead Angeles Nagy MD [address], [address] [place] [address] Referral ID Status Reason Start Date Expiration Date V isits Requested Visits Authorized [id number] Pending Review 06/22/2022 06/22/2023 1 1 Specialty Diagnoses / Procedures Referred By Contac t Referred To Contact Radiology Diagnoses Cauda equina syndrome (HCC) Neurogenic bladder Urinary retention Urinary incontinence without sensory awareness Procedures US RENAL COMPLETE Ashlee Erwin, PLANT TECHNICAL SPECIALIST - GENERAL FREIGHT AGENT [address] [place] [address] Referral ID Status Reason Start Date Expiration Date Visits Re quested Visits Authorized [id number] Open 09/18/2022 09/18/2023 1 1 Additional Source Comments (unrecognized sect ion and content) No Status Records FoundNo Status Records FoundNo Status Records FoundNo Status Records FoundNo Status Records FoundNo Status Records FoundNo Status Records Found INFORMATION SOURCE (unrecogn ized section and content) DATE CREATED AUTHOR 09/21/2017 [facility] DATE CREATED AUTHOR AUTHOR'S ORGANIZ ATION 04/08/2022 [facility] DATE CREATED AUTHOR AUTHOR'S ORGANIZ ATION 09/27/2022 [facility] DATE CREATED AUTHOR AUTHOR'S ORGANIZ ATION 10/22/2023 [facility] DATE CREATED AUTHOR AUTHOR'S ORGANIZ ATION 08/03/2024 [facility] Specialists EPIC DATE CREATED AUTHOR AUTHOR'S ORGANIZ ATION 12/06/2024 [facility] DATE CREATED AUTHOR AUTHOR'S ORGANIZ ATION 12/09/2024 [facility] Care Teams (unrecognized sec tion and [...] Active Cathy Brar MD Attending Provider Active 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 Specialty Start Date End Date Fidel Abbott MD PCP - General 07/03/15 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 Specialty Start Date End Date Fidel Abbott MD PCP - General 07/03/15 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 Specialty Start Date End Date Fidel Abbott MD PCP - General 07/03/15 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 Specialty Start Date End Date Fidel Abbott MD PCP - General 07/03/15 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 Specialty Start Date End Date Fidel Abbott MD PCP - General 07/03/15 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 Specialty Start Date End Date Fidel Abbott MD PCP - General Family Medicine 12/10/22 Fidel Abbott MD [address] [place] [address] [facility] 03/29/23 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 Specialty Start Date End Date Fidel Abbott MD [facility] 12/10/22 Fidel Abbott MD [address] [place] [phone] [facility] 03/29/23 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 Specialty Start Date End Date Fidel Abbott MD [address] [place] [address] [facility] 03/29/23 Fidel Abbott MD [address] [place] [address] [facility] 05/12/23 Team Status: Inactive Member Role Status [...] July 08, 2023 End: July 08, 2023 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 Specialty Start Date End Date Fidel Abbott MD [facility] General 12/28/16 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 Specialty Start Date End Date Fidel Abbott MD [address] [place] [address] PCP - [employer] 02/26/23 Fidel Abbott MD [address] [place] [phone] PCP - General Family Medicine 11/18/23 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 Specialty Start Date End Date Fidel Abbtot MD [address] [place] [address] PCP - [employer] 02/26/23 Fidel Abbott MD [address] [place] [address] PCP - General Family Medicine 11/18/23 Team [...] Provider Active S tart: February 08, 2024 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 Specialty Start Date End Date Fidel Abbott MD [address] [place] [address] PCP - [employer] 02/26/23 Fidel Abbott MD [address] [place] [address] PCP - General Family Medicine 11/18/23 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 Specialty Start Date End Date Fidel Abbott MD [address] [place] [address] PCP - [employer] 02/26/23 Fidel Abbott MD [address] [place] [address] PCP - General Family Medicine 11/18/23 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 Specialty Start Date End Date Fidel Abbott MD [address] [place] [address] PCP - [employer] 02/26/23 Fidel Abbott MD [address] [place] [address] PCP - General Family Medicine 11/18/23 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 Specialty Start Date End Date Fidel Abbott MD PCP - General 12/28/16 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 Specialty Start Date End Date Fidel Abbott MD PCP - General 12/28/16 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 Specialty Start Date End Date Fidel Abbott MD [address] [place] [address] PCP - [employer] 02/26/23 Fidel Abbott MD [address] [place] [address] PCP - General Family Medicine 11/18/23 Fidel Abbott MD [address] [place] [address] PCP - [employer] 05/05/24 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 Specialty Start Date End Date Fidel Abbott MD [address] [place] [address] PCP - [employer] 02/26/23 Fidel bAbott MD [address] [place] [address] PCP - General Family Medicine 11/18/23 Fidel Abbott MD [address] [place] [address] PCP - [employer] 05/05/24 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 Specialty Start Date End Date Fidel Abbott MD [address] [place] [address] PCP - [employer] 02/26/23 Fidel Abbott MD [address] [place] [address] PCP - General Family Medicine 11/18/23 Fidel Abbott MD [address] [place] [address] PCP - [employer] 05/05/24 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 Specialty Start Date End Date Fidel Abbott MD [address] [place] [address] PCP - General Family Medicine 11/18/23 Fidel Abbott MD [address] [place] [address] PCP - [employer] 05/05/24 Alvin Gonzalez [...] August 30, 2024 End: August 30, 2024 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 Specialty Start Date End Date Fidel Abbott MD [address] [place] [address] PCP - General Family Medicine 11/18/23 Team [...] October 02, 2024 End: October 02, 2024 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 Specialty Start Date End Date Fidel Abbott MD [address] [place] [address] PCP - General Family Medicine 11/18/23 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 Specialty Start Date End Date Fidel Abbott MD [address] [place] [address] PCP - General Family Medicine 11/18/23 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 Specialty Start Date End Date Fidel Abbott MD [address] [place] [address] PCP - General Family Medicine 11/18/23 Goals [...] kidney injury (HCC) Matias Garcia MD [address] [place] [address] [facility] [address] [place] [address] Referral ID Status Reason Start Date Expiration Date Visits Re quested Visits Authorized [id number] 1 1 Specialty Diagnoses / Procedures Referred By Farzaneh t Referred To Contact Radiology Diagnoses Cauda equina syndrome (HCC) Neurogenic bladder Urinary retention Urinary incontinence without sensory awareness Procedures US RENAL COMPLETE Ashlee Erwin, PLANT TECHNICAL SPECIALIST - GENERAL FREIGHT AGENT [address] [place] [address] Referral ID Status Reason Start Date Expiration Date Visits Re quested Visits Authorized [id number] Open 09/18/2022 09/18/2023 1 1 Reason Comments [...] Valdez RN) 0812 (MAR Hold - Provider: [facility] [employer] - Reason: Unreviewed Transfer Orders)0900 (Automatically Held - Provider: Cammy Autohold)0959 ([facility] Unhold - Provider: Dragan Voss RN)1233 (Given - Provider: June Rocio) citalopram (CELEXA) tablet 40 mg 40 mg, Oral, DAILY, First dose on Wed06/23/22 at 0900, Until Discontinued 0907 (Given - Provider: Heri Valdez RN) 0723 (Given - Provider: Heri Valdez RN) 0812 (MAR Hold - Provider: [facility] [employer] - Reason: Unreviewed Transfer Orders)0900 (Automatically Held - Provider: Cammy Autohold)0959 ([facility] Unhold - Provider: Dragan Voss RN)1235 (Given [...] Geneva Samayoa RN)0906 (New Bag - Provider: eHri Valdez RN)1005 (Stopped - Provider: Heri Valdez [...] June Rocio)2045 (Due - Provider: Linda Ibrahim [facility]) fenofibrate (TRIGLIDE) tablet 160 mg [...] of remaining blood product. 0812 ([facility] Hold - Pro vider: [facility] [employer] - Reason: Unreviewed Transfer Orders)0959 ([facility] Unhold - Provider: Dragan Voss RN) acetaminophen (TYLENOL) suppository 650 mg(Linked Group 1) 650 mg, Rectal, EVERY 6 HOURS PRN, Starting on Wed06/22/22 at 2017, Until Discontinued, Pain Mild (1-3), Fever, For temp greater than 100.4 F (38 C), Administer if oral route cannot be used. 0812 ([facility] - Pro vider: [facility] [employer] - Reason: Unreviewed Transfer Orders)0959 ([facility] Unhold - Provider: Dragan Voss RN) acetaminophen (TYLENOL) tablet 650 mg(Linked Group 1) 650 mg, Oral, EVERY 6 HOURS PRN, Starting on Wed06/22/22 at 2017, Until Discontinued, Pain Mild (1-3), Fever, For temp greater than 100.4 F (38 C), Maximum dose of acetaminophen is 4000 mg from all sources in 24 hours. 0812 ([facility] - Pro vider: [facility] [employer] - Reason: Unreviewed Transfer Orders)0959 ([facility] Unhold - Provider: Dragan Voss RN) ondansetron (ZOFRAN) injection 4 mg(Linked Group 2) 4 mg, IntraVENous, EVERY 6 HOURS PRN, Starting on Wed06/22/22 at 2017, Until Discontinued, Nausea, Vomiting, Administer if oral route cannot be used. 0812 ([facility] Hold - Pro vider: [facility] [employer] - Reason: Unreviewed Transfer Orders)0959 ([facility] Unhold - Provider: Dragan Voss RN) ondansetron (ZOFRAN-ODT) disintegrating tablet 4 mg(Linked Group 2) 4 mg, Oral, EVERY 8 HOURS PRN, Starting on Wed06/22/22 at 2017, Until Discontinued, Nausea, Vomiting 0812 ([facility] Hold - Pro vider: [facility] [employer] - Reason: Unreviewed Transfer Orders)0959 ([facility] Unhold - Provider: Dragan Voss RN) polyethylene glycol (GLYCOLAX) packet 17 g 17 g, Oral, DAILY PRN, Starting on Wed06/22/22 at 2017, Until Discontinued, Constipation, First line therapy for constipation 0812 (MA[facility] Hold - Pro vider: [facility] [employer] - Reason: Unreviewed Transfer Orders)0959 ([facility] Unhold - Provider: Dragan Voss RN) sodium chloride flush 0.9 % injection 10 mL 10 mL, IntraVENous, PRN, Starting on Wed06/22/22 at 2017, Until Discontinued, Line Care, After every IV line use 0812 ([facility] Hold - Pro vider: [facility] [employer] - Reason: Unreviewed Transfer Orders)0959 ([facility] Unhold - Provider: Dragan Voss RN) Linked [...] BE BASED ON THE PRIMARY CLINICAL RECORDS. [facility]. provides no warranty or guarantee of the accuracy or completeness of information in this document.
== END 2024-12-13 13:13 | disposition home or self-care (01) ==
LOC: LAB 13:12
PROVIDERS: PCP Family Medicine; Visit Provider Podiatrist Foot & Ankle Surgery
DX: L97.529 Non-pressure chronic ulcer of other part of left foot with unspecified severity (principal); L03.116 Cellulitis of left lower limb
CPT/HCPCS: 87070; 87075; 87186; 87205

== ENCOUNTER 2025-01-01 10:57 | Outpatient (OUT) | payer BC, MEDICARE, SELFPAY ==
--- OUTSIDE RECORDS SUMMARY | 2025-01-01 11:06 | XMS_ITS | CCD ---
Author Organization [facility] Care Team Providers Care Chart Calculator Name Role Phone WESTONMICHAELA Unavailable Unavailable NADERER, FIDEL LIEBERMAN Unavailable Unavailabl e AOUAD, THIAGO Sy Unavailable Unavailable BLOOD, GANGA Gutiérrez Unavailable Unavailable BRAMBILA, JAI Chowdhury Unavailable Unavailable SCHNICATHYDOCKING SAW OPERATOR, WILLIAM Unavailable Unavaila ble SHASHA, KHADAR Murphy [...] NADERER, DR FIDEL Tellez Primary Care Unavailable MODOC, DR KHADAR Edwards Consulting Unavailable BRAR, DR [...] Provider MD Fidel Abbott Primary Care Provider [phone] MD Cathy Brar Attending Provider [phone] CRISTIANA Bah Attending Provider CRISTIANA Bahena Attending Provider Khadar Guerrero Referring Unavailable MILENA, FIDEL Primary Care Unavailable FIDEL ABBOTT Referring Unavailable Fidel Abbott MD Primary Care Provider [phone] Fidel Abbott MD Unavailable Milena NAZARIO, Fidel Primary Care Provider [phone] Milena NAZARIO, Fidel Primary Care Provider Nina River MD Attending Provider Cathy Brar MD Attending Provider [phone] Cathy Brar MD Attending Provider Fidel Abbott MD Primary Care Provider [phone] Fidel Abbott MD Unavailable FIDEL ABBOTT Attending Unavailable MILENA, FIDEL Attending Unavailable FIDEL ABBOTT Attending Unavailable Alvin Gonzalez MA Unavailable Unavailable Fidel Abbott MD Primary Care Provider [phone] Cathy Brar MD Attending Provider Latha CAICEDO-C, Tami Chritsie Attending Provider Aleta, Nina Attending Unavailable Aleta, Nina Admitting Unavailable Milena, Fidel Primary Care Unavailable Nadelmira, Fidel Primary Care Unavailable Maykel, Cathy Attending Unavailable Cathy Brar Admitting Unavailable Milena, Fdiel Primary Care Unavailable Cathy Brar Attending Unavailable [...] 6 Shut kidneys down [facility] Repository (20 sources) Vancomycin Drug Allergy 6 Other, Unknown, Other (See Comments) [facility] (20 sources) omadacycline; Translations: [omadacycl] Drug allergy 3 Renal pain (finding) [facility] (8 sources) ferrous sulfate; Translations: [ferrous sulfate] Drug Allergy 3 Itching [facility] (1 source) Vancomycin Drug Allergy 5 [facility] Repository Medications Current Medications Medication Drug [...] procedure, # 2 tab(s), Refills(s) 0, Pharmacy: [facility]29, 180, cm, 11/09/22 13:16:00 EDT, [...] Called to pharmacy 09/09/2021 polyethylene glycol 3350 01044 mg powder for oral solution (1 source) Osmotic Laxative Start: 06-22-2022 17 g, Oral, D AILY PRN, Starting on Wed06/22/22 at 2018, Until Discontinued, Constipation First line therapy for constipation polyethylene glycol 3350 541590 mg / potassium chloride 2970 mg / sodium bicarbonate 6740 mg / sodium chloride 5860 mg / sodium sulfate 33394 mg powder for oral solution (1 source) [...] GM/60ML suspension 45 g sodium zirconium cyclosilicate 31985 mg powder for oral suspension (1 source) [...] 10:21am Start: 12-07-2016 End: 12-08-2016 [facility] 12:00am December 08, 2016 2:50pm Start: 12-07-2016 End: 12-08-2016 Bactrim Discontinued [facility] [place] 11:00pm December 08, 2016 1:50pm [...] (BMI) of 36.0 to 36.9 in adult ([facility])] Onset: 5 07-31-2024 [...] Acute and unspecified renal failure (16 sources) Vtzmi-ce-yxrgrbt renal failure; Translations: [Acute kidney failure, unspecified] [...] current use of drug therapy; Translations: [Other exterminator termite (current) drug therapy] Onset: 11-18-2023 11-18-2023 Episodic Other aftercare (5 sources) Patient encounter status; Translations: [Other exterminator termite (current) drug therapy] Onset: 11-18-2023 11-18-2023 Episodic [...] Facility Patient Letter FTon 2024 Patient Letter [facility] Patient Letter [facility] December 07, 2024 GANGA STINSON [address] [place] [address] : 1960 Dear Mr. Ganga Stinson, [facility], Dr. Jovanny Villa office has been trying to reach you concerning scheduling your annual bladder scope (cystoscopy) and urethral dilation at the [facility]. We have left several messages without a response. Please call the office as soon as possible so we can get you scheduled and continue to provide you with quality care. Sincerely, Jovanny Villa M.D., F.A.C.S. [facility] [address] [place], [place] [address] , option #3 Normal [facility] Aerobic Cultureon 10-02-2024 Aerobic Culture Comment [...] RESISTANT TO ALL B-LACTAM DRUGS. PERFORMED BY: [facility] [address] [place] [address] PATHOLOGIST SPUN PASTE MACHINE OPERATOR LEXA ELLIOTT M.D. Normal [facility] Comment on above: Performed By: #### A ERC #### [address] Basic Metabolic Panelon Creatinine Clr Calc Pharmacy 54.42 Normal [facility] Comment on above: Result Comment: PERF ORMED BY: [place] [address] PATHOLOGIST SPUN PASTE MACHINE OPERATOR LEXA ELLIOTT M.D. Performed By: #### C BC, BMP #### [address] GFR/1.73 sq M.predicted MDRD (S/P/Bld) [Vol rate/Area] 45.056 mL/min/{1.73_m2} Normal [facility] Comment on above: Performed By: #### C BC, BMP #### [address] Basophils [#/volume] in Bloo d by Automated countOrdered By: Rafi Cai on 10-02-2024 Basophils (Bld) [#/Vol] 0.1 10*3/uL Normal 0.0-0.2 [facility] Comment on above: Result Comment: PERF ORMED BY: [place] [address] PATHOLOGIST SPUN PASTE MACHINE OPERATOR LEXA ELLIOTT M.D. Performed By: #### C BC, BMP #### [place] [address] [place] Basophils/100 leukocytes in Blood by Automated countOrdered By: Rafi Cai on 10-02-2024 Basophils/100 WBC (Bld) 0.6 % Normal . [facility] Comment on above: Performed By: #### C BC, BMP #### [place] [address] [place] Calcium [Mass/volume] in Ser um or PlasmaOrdered By: Rafi Cai on 10-02-2024 Calcium [Mass/Vol] 8.3 mg/dL Low 8.6-10.3 [facility] Comment on above: Performed By: #### C BC, BMP #### [address] Capillary blood glucose linda urement by glucometer (mass/volume)Ordered By: Cathy Brar on 10-02-2024 Glucose [Mass/Vol] 74 mg/dL Normal [facility] Comment on above: Random Glucose Refer ence Range is dependent on time and content of last meal. Glucose of more than 200 mg/dL in a nonstressed, ambulatory subject supports the diagnosis of Diabetes Mellitus. Result Comment: [place] om Glucose Reference Range is dependent on time and content of last meal. Glucose of more than 200 mg/dL in a nonstressed, ambulatory subject supports the diagnosis of Diabetes Mellitus. PERFORMED BY: [place] [address] PATHOLOGIST SPUN PASTE MACHINE OPERATOR LEXA ELLIOTT M.D. Performed By: #### G BHARATI #### Point of Care testing , Carbon dioxide, total [Moles /volume] in Serum or PlasmaOrdered By: Rafi Cai on 10-02-2024 CO2 [Moles/Vol] 24.7 mmol/L Normal 21.0-31.0 [facility] Comment on above: Performed By: #### C CHINTAN, BMP #### [address] Chloride [Moles/volume] in S tremayne or PlasmaOrdered By: Rafi Cai on 10-02-2024 Chloride [Moles/Vol] 109 mmol/L High 98-107 [facility] Comment on above: Performed By: #### C CHINTAN, BMP #### [address] Complete Blood Count Auto Di ffon 10-02-2024 Mean Corpuscular HGB Conc 32.2 g/dL Low 32.5-35.6 [facility] Comment on above: Performed By: #### C CHINTAN, BMP #### [address] NRBC% 0.0 /100{WBC} Normal 0-0.5 [facility] Comment on above: Performed By: #### C CHINTAN, BMP #### [facility] [address] White Blood Count 13.7 [CFU]/mL High 4.1-10.5 [facility] Comment on above: Performed By: #### C BC, BMP #### [facility] [address] Creatinine [Mass/volume] in Serum or PlasmaOrdered By: Rafi Cai on 10-02-2024 Creatinine [Mass/Vol] 1.69 mg/dL High 0.70-1.30 [facility] Comment on above: Performed By: #### C BC, BMP #### [address] ECG 12 lead ECGon 10-02-2024 ECG 12 lead ECG [facility] [place] [address] [place] [address] Electrocardiograph Report Signed Patient: Ganga Stinson MR#: [id number] : 1960 Acct:[id number] Age/Sex: 64 / M ADM Date: 10/02/24 Loc: [place] Room: Type: [facility] Attending Dr: Cathy Brar MD [...] change was found Confirmed by Jese Whitley ([id number]) on 10/02/2024 4:24:29 PM Referred By: Electronically Signed By: Jese Whitley Transcribed By: MUS Signed By Jese Whitley MD 10/02/24 1624 Normal [facility] Eosinophils [#/volume] in Bl ood by Automated countOrdered By: Rafi Cai on 10-02-2024 Eosinophils (Bld) [#/Vol] 1.2 10*3/uL High 0.0-0.45 [facility] Comment on above: Performed By: #### C CHINTAN, BMP #### [facility] [address] Eosinophils/100 leukocytes i n Blood by Automated countOrdered By: Rafi Cai on 10-02-2024 Eosinophils/100 WBC (Bld) 8.7 % Normal . [facility] Comment on above: Performed By: #### C CHINTAN, BMP #### [address] Erythrocyte distribution wid th [Ratio] by Automated countOrdered By: Rafi Cai on 10-02-2024 Erythrocyte distribution width (RBC) [Ratio] 15.3 % High 12.0-14.8 [facility] Comment on above: Performed By: #### C CHINTAN, BMP #### [address] Erythrocytes [#/volume] in B lood by Automated countOrdered By: Rafi Cai on 10-02-2024 RBC (Bld) [#/Vol] 2.89 10*6/uL Low 3.90-5.60 [facility] Comment on above: Performed By: #### C CHINTAN, BMP #### [address] GLUCOSE POCT GLUCOMETERSon 0 10-02-2024 Glucose [Mass/Vol] 74 mg/dL [facility] Comment on above: Random Glucose Refer ence Range is dependent on time and content of last meal. Glucose of more than 200 mg/dL in a nonstressed, ambulatory subject supports the diagnosis of Diabetes Mellitus. [facility] COMMEMT1 Glu2: Cleaned Meter [facility] Glucose [Mass/Vol] 77 mg/dL [facility] Comment on above: Random Glucose Refer ence Range is dependent on time and content of last meal. Glucose of more than 200 mg/dL in a nonstressed, ambulatory subject supports the diagnosis of Diabetes Mellitus. [facility] Glucose Poct Glucometerson 0 10-02-2024 Commemt1 Glu2: Cleaned Meter Normal [facility] Comment on above: Result Comment: PERF ORMED BY: [place] [address] PATHOLOGIST SPUN PASTE MACHINE OPERATOR LEXA ELLIOTT M.D. Performed By: #### G BHARATI #### Point of Care testing , Glucose [Mass/Vol] 77 mg/dL Normal [facility] Comment on above: Result Comment: [place] [facility] Glucose Reference Range is dependent on time and content of last meal. Glucose of more than 200 mg/dL in a nonstressed, ambulatory subject supports the diagnosis of Diabetes Mellitus. Performed By: #### G BHARATI #### Point of Care testing , Glucose [Mass/volume] in Ser um or PlasmaOrdered By: Rafi Cai on 10-02-2024 Glucose [Mass/Vol] 72 mg/dL Normal 70-100 [facility] Comment on above: ADA recommended refe rence rangeRandom Glucose Reference Range is dependent on time and content of last meal. Glucose of more than 200 mg/dL in a nonstressed, ambulatory subject supports the diagnosis of Diabetes Mellitus. Result Comment: [facility] Glucose Reference Range is dependent on time and content of last meal. Glucose of more than 200 mg/dL in a nonstressed, ambulatory subject supports the diagnosis of Diabetes Mellitus. ADA recommended reference range Performed By: #### C BC, BMP #### [address] Hematocrit [Volume Fraction] of Blood by Automated countOrdered By: Rafi Cai on 10-02-2024 Hematocrit (Bld) [Volume fraction] 23.0 % Low 38.8-50.0 [facility] Comment on above: Performed By: #### C BC, BMP #### [address] Hemoglobin [Mass/volume] in BloodOrdered By: Rafi Cai on 10-02-2024 Hemoglobin (Bld) [Mass/Vol] 7.4 g/dL Low 13.0-17.0 [facility] Comment on above: Performed By: #### C BC, BMP #### [place] [address] [place] Martín 10-02-2024 L ------ Specimen: [id number] Received: 10/02/24 Status: ROSIO Rajput Num: [id number] Spec Type: Surgical Subm Dr: Cathy Brar MD Tissues: A Debridement-Skin/Other Than Skin (PRODUCTS OF DEBRIDEMENT) Procedures: Gianna ASHBY/Margo Smith Age/ Patient Sex Location Account Attending Physician Ganga Stinson/Sam [place] [id number] Cathy Brar MD SPEC NUM: [id number] RECD: 10/02/24 STATUS: ROSIO RAJPUT NUM: [id number] NAYLA: 10/02/[address]: Cathy Brar MD ENTERED: 10/02/[address] [facility] [address]: SPEC TYPE: Surgical DEPT: S ENTERED BY: [id number] RECV BY: [id number] ORDERED: HE, Gross/Micro L3 ORDERED: HE, Gross/Micro [...] to yellow, dull and uniform cut surfaces. Underwater Welder sections are submitted in a single cassette. (1, , [id number] A) Microscopic Description Microscopic examination is performed. CPT Codes 88834 Specimen: [id number] Received: 10/02/24 Status: ROSIO Matti Num: [id number] Spec Type: Surgical Subm Dr: Cathy Brar MD Tissues: A Debridement-Skin/Other Than Skin (PRODUCTS OF DEBRIDEMENT) Procedures: ISMA, Gross/Micro L3 Patient: Ganga Stinson [id number] (Continued) Signed (signature on file) Zak Brasher MD 10/04/24 0918 Normal [facility] Leukocytes [#/volume] correc shreya for nucleated erythrocytes in Blood by Automated counOrdered By: Rafi Cai on 10-02-2024 WBC corrected for nucl RBC Auto (Bld) [#/Vol] 13.7 10*3/uL High 4.1-10.5 [facility] Leukocytes [#/volume] in Blo od by Automated countOrdered By: Rafi Cai on 10-02-2024 WBC (Bld) [#/Vol] 13.7 10*3/uL High 4.1-10.5 [facility] Comment on above: Performed By: #### C CHINTAN, BMP #### [facility] [address] [place] [address] [place] Lymphocytes [#/volume] in Bl ood by Automated countOrdered By: Rafi Cai on 10-02-2024 Lymphocytes (Bld) [#/Vol] 1.5 10*3/uL Normal 1.00-4.8 [facility] Comment on above: Performed By: #### C CHINTAN, BMP #### [facility] [address] [place] [address] [place] Lymphocytes/100 leukocytes i n Blood by Automated countOrdered By: Rafi Cai on 10-02-2024 Lymphocytes/100 WBC (Bld) 11.2 % Normal . [facility] Comment on above: Performed By: #### C BC, BMP #### [facility] [address] MCH [Entitic mass] by Automa shreya countOrdered By: Rafi Cai on 10-02-2024 MCH (RBC) [Entitic mass] 25.6 pg Low 27.5-35.2 [facility] Comment on above: Performed By: #### C BC, BMP #### [address] MCHC Auto (RBC) [Mass/Vol]Or dered By: Rafi Cai on 10-02-2024 MCHC (RBC) [Mass/Vol] 32.2 g/dL Low 32.5-35.6 [facility] MCV [Entitic volume] by Auto mated countOrdered By: Rafi Cai on 10-02-2024 MCV (RBC) [Entitic vol] 79.5 fL Low 83.5-101 [facility] Comment on above: Performed By: #### C BC, BMP #### [place] [address] [place] Monocytes [#/volume] in Bloo d by Automated countOrdered By: Rafi Cai on 10-02-2024 Monocytes (Bld) [#/Vol] 1.1 10*3/uL High 0.0-0.8 [facility] Comment on above: Performed By: #### C BC, BMP #### [place] [address] [place] Monocytes/100 leukocytes in Blood by Automated countOrdered By: Rafi Cai on 10-02-2024 Monocytes/100 WBC (Bld) 8.3 % Normal . [facility] Comment on above: Performed By: #### C BC, BMP #### [place] [address] [place] Neutrophils [#/volume] in Bl ood by Automated countOrdered By: Rafi Cai on 10-02-2024 Neutrophils (Bld) [#/Vol] 9.8 10*3/uL High 1.8-7.7 [facility] Comment on above: Performed By: #### C BC, BMP #### [facility] [address] [place] [address] [place] Neutrophils/100 leukocytes i n Blood by Automated countOrdered By: Rafi Cai on 10-02-2024 Neutrophils/100 WBC (Bld) 71.2 % Normal . [facility] Comment on above: Performed By: #### C BC, BMP #### [address] No Panel InformationOrdered By: Rafi Cai on 10-02-2024 Estimated GFR (CKD-EPI) 45.056 mL/Min [facility] Creatinine Clearance (Chem 54.42 [facility] No Panel InformationOrdered By: Cathy Brar on 10-02-2024 Bedside Glucose Comment Glu2: cleaned meter [facility] Nucleated erythrocytes [Pres ence] in Blood by Automated countOrdered By: Rafi Cai on 10-02-2024 Nucleated RBC Auto Ql (Bld) 0.0 /100{WBC} 0-0.5 [facility] Platelet mean volume [Entiti c volume] in Blood by Automated countOrdered By: Rafi Cia on 10-02-2024 Platelet mean volume (Bld) [Entitic vol] 6.2 fL Low 6.6-10.1 [facility] Comment on above: Performed By: #### C CHINTAN, BMP #### [address] Platelets [#/volume] in Bloo d by Automated countOrdered By: Rafi Cai on 10-02-2024 Platelets (Bld) [#/Vol] 339 10*3/uL Normal 150-450 [facility] Comment on above: Performed By: #### C CHINTAN, BMP #### [address] Potassium [Moles/volume] in Serum or PlasmaOrdered By: Rafi Cai on 10-02-2024 Potassium [Moles/Vol] 3.7 mmol/L Normal 3.5-5.1 [facility] Comment on above: Performed By: #### C BC, BMP #### [place] [address] [place] Serum or plasma anion gap de terminationOrdered By: Rafi Cai on 10-02-2024 Anion gap [Moles/Vol] 8.0 mmol/L Normal 6.0-15.0 [facility] Comment on above: Performed By: #### C BC, BMP #### [facility] [address] Sodium [Moles/volume] in Ser um or PlasmaOrdered By: Rafi Cai on 10-02-2024 Sodium [Moles/Vol] 138 mmol/L Normal 136-145 [facility] Comment on above: Performed By: #### C BC, BMP #### [facility] [address] Urea nitrogen [Mass/volume] in Serum or PlasmaOrdered By: Rafi Cai on 10-02-2024 Urea nitrogen [Mass/Vol] 25 mg/dL Normal 7-25 [facility] Comment on above: Performed By: #### C BC, BMP #### [facility] [address] ALL CBC WITH AUTO DIFFon BASOPHILS ABSOLUTE AUTO 0 [facility] Basophils/100 WBC (Bld) 0.3 % 0.2 - 2.0 % [facility] Eosinophils/100 WBC (Bld) 9.5 % High 0.9 - 7.0 % [facility] Erythrocyte distribution width (RBC) [Ratio] 14.3 % 11.0 - 15.0 % [facility] Hematocrit (Bld) [Volume fraction] 23.2 % Critically low 42.0 - 54.0 % [facility] Comment on above: RESULTS CALLED TO NICHOL SWAN RN Hemoglobin (Bld) [Mass/Vol] 7.4 g/dL Low 14.0 - 18.0 g/dL [facility] IMMATURE GRANULOCYTES ABS AUTO 0.07 High [facility] Immature granulocytes/100 WBC (Bld) 0.5 % 0.0 - 0.5 % [facility] Interpretation and review of laboratory results Abnormal [facility] LYMPHOCYTES ABSOLUTE AUTO 1.8 [facility] Lymphocytes/100 WBC (Bld) 13.3 % Low 20.5 - 60.0 % [facility] MCH (RBC) [Entitic mass] 26.6 pg 25.9 - 34.0 pg [facility] MCHC (RBC) [Mass/Vol] 31.9 g/dL 29.9 - 35.2 g/dL [facility] MCV (RBC) [Entitic vol] 83.5 fL 80.0 - 94.0 fL [facility] MONOCYTES ABSOLUTE AUTO 1.1 High [facility] Monocytes/100 WBC (Bld) 7.8 % 1.7 - 12.0 % [facility] NEUTROPHILS ABSOLUTE AUTO 9.3 High [facility] Neutrophils/100 WBC (Bld) 68.6 % 43.0 - 75.0 % [facility] Platelet mean volume (Bld) [Entitic vol] 8.8 fL Low 9.5 - 13.5 fL [facility] TBH EO # 1.3 High [facility] TB PLT [address] [facility] RBC 2.[address] [facility] WBC 13.5 High [facility] ALL CBC WITH AUTO DIFFon BASOPHILS ABSOLUTE AUTO 0.1 [facility] Basophils/100 WBC (Bld) 0.4 % 0.2 - 2.0 % [facility] Eosinophils/100 WBC (Bld) 9 % High 0.9 - 7.0 % [facility] Erythrocyte distribution width (RBC) [Ratio] 14.5 % 11.0 - 15.0 % [facility] Hematocrit (Bld) [Volume fraction] 23.8 % Critically low 42.0 - 54.0 % [facility] Comment on above: RESULTS CALLED TO TABBY RUBALCAVA RN at 1219 Hemoglobin (Bld) [Mass/Vol] 7.4 g/dL Low 14.0 - 18.0 g/dL [facility] IMMATURE GRANULOCYTES ABS AUTO 0.08 High [facility] Immature granulocytes/100 WBC (Bld) 0.6 % High 0.0 - 0.5 % [facility] Interpretation and review of laboratory results Abnormal [facility] LYMPHOCYTES ABSOLUTE AUTO 1.6 [facility] Lymphocytes/100 WBC (Bld) 12.9 % Low 20.5 - 60.0 % [facility] MCH (RBC) [Entitic mass] 26.3 pg 25.9 - 34.0 pg [facility] MCHC (RBC) [Mass/Vol] 31.1 g/dL 29.9 - [...] US ankle/arm indiceson 09-05 US ankle/arm indices [facility] [address] [place] [address] Ultrasound Report Signed Patient: Ganga Stinson MR#: [id number] : 1960 Acct:[id number] Age/Sex: 64 / M ADM Date: 08/30/24 Loc: [facility] Room: Type: [facility] Attending Dr: Jesusita Navarro MD Ordering Provider: [...] Navarro MD,FACS,FSVS 09/05/2024 12:35 PM Dictation Location: [facility] Tech: Livia Hawk Transcribed By: MARYANN 09/05/24 1235 Dictated By: Jesusita Navarro MD 09/05/24 1234 Signed By: 09/05/24 1235 Normal [facility] ALL CBC WITH AUTO DIFFon BASOPHILS ABSOLUTE AUTO 0.1 [facility] Basophils/100 WBC (Bld) 0.4 % 0.2 - 2.0 % [facility] Eosin[facility]/100 WBC (Bld) 5 % 0.9 - 7.0 % [facility] Erythrocyte distribution width (RBC) [Ratio] 14.3 % 11.0 - 15.0 % [facility] Hematocrit (Bld) [Volume fraction] 23.4 % Critically low 42.0 - 54.0 % [facility] Comment on above: RESULTS CALLED TO TABBY RUBALCAVA RN Hemoglobin (Bld) [Mass/Vol] 7.3 g/dL Low 14.0 - 18.0 g/dL [facility] IMMATURE GRANULOCYTES ABS AUTO 0.06 High [facility] Immature granulocytes/100 WBC (Bld) 0.4 % 0.0 - 0.5 % [facility] Interpretation and review of laboratory results Abnormal [facility] LYMPHOCYTES ABSOLUTE AUTO 1.6 [facility] Lymphocytes/100 WBC (Bld) 11.5 % Low 20.5 - 60.0 % [facility] MCH (RBC) [Entitic mass] 26 pg 25.9 - 34.0 pg [facility] MCHC (RBC) [Mass/Vol] 31.2 g/dL 29.9 - 35.2 g/dL [facility] MCV (RBC) [Entitic vol] 83.3 fL 80.0 - 94.0 fL [facility] MONOCYTES ABSOLUTE AUTO 1.1 High [facility] Monocytes/100 WBC (Bld) 8.2 % 1.7 - 12.0 % [facility] NEUTROPHILS ABSOLUTE AUTO 10.3 High [facility] Neutrophils/100 WBC (Bld) 74.5 % 43.0 - 75.0 % [facility] Platelet mean volume (Bld) [Entitic vol] 8.9 fL Low 9.5 - 13.5 fL [facility] TBH EO # 0.7 [facility] TBH PLT 319 [facility]H RBC 2.81 Low [facility]H WBC 13.8 High [facility] ALL CBC WITH AUTO DIFFon BASOPHILS ABSOLUTE AUTO 0.1 [facility] Basophils/100 WBC (Bld) 0.4 % 0.2 - 2.0 % [facility] Eosinophils/100 WBC (Bld) 5.1 % 0.9 - 7.0 % [facility] Erythrocyte distribution width (RBC) [Ratio] 15.3 % High 11.0 - 15.0 % [facility] Hematocrit (Bld) [Volume fraction] 22.9 % Critically low 42.0 - 54.0 % [facility] Comment on above: RESULTS CALLED TO CARLOS FREED RN Hemoglobin (Bld) [Mass/Vol] 6.9 g/dL Critically low 14.0 - 18.0 g/dL [facility] Comment on above: RESULTS CALLED TO CARLOS FREED RN IMMATURE GRANULOCYTES ABS AUTO 0.05 High [facility] Immature granulocytes/100 WBC (Bld) 0.4 % 0.0 - 0.5 % [facility] Interpretation and review of laboratory results Abnormal [facility] LYMPHOCYTES ABSOLUTE AUTO 1.3 [facility] Lymphocytes/100 WBC (Bld) 10.2 % Low 20.5 - 60.0 % [facility] MCH (RBC) [Entitic mass] 24.7 pg Low 25.9 - 34.0 pg [facility] MCHC (RBC) [Mass/Vol] 30.1 g/dL 29.9 - 35.2 g/dL [facility] MCV (RBC) [Entitic vol] 82.1 fL 80.0 - 94.0 fL [facility] MONOCYTES ABSOLUTE AUTO 1.1 High [facility] Monocytes/100 WBC (Bld) 8.1 % 1.7 - 12.0 % [facility] NEUTROPHILS ABSOLUTE AUTO 9.9 High [facility] Neutrophils/100 WBC (Bld) 75.8 % High 43.0 - 75.0 % [facility] Platelet mean volume (Bld) [Entitic vol] 8.9 fL Low 9.5 - 13.5 fL [facility] TBH EO # 0.7 [facility] TBH PLT [address] [facility] RBC 2.79 Low [facility] TB WBC 13.1 High [facility] ALL CBC WITH AUTO DIFFon BASOPHILS ABSOLUTE AUTO 0.1 [facility] Basophils/100 WBC (Bld) 0.6 % 0.2 - 2.0 % [facility] Eosinophils/100 WBC (Bld) 8.8 % High 0.9 - 7.0 % [facility] Erythrocyte distribution width (RBC) [Ratio] 14 % 11.0 - 15.0 % [facility] Hematocrit (Bld) [Volume fraction] 26.9 % Low 42.0 - 54.0 % [facility] Hemoglobin (Bld) [Mass/Vol] 8.1 g/dL Low 14.0 - 18.0 g/dL [facility] IMMATURE GRANULOCYTES ABS AUTO 0.12 High [facility] Immature granulocytes/100 WBC (Bld) 0.9 % High 0.0 - 0.5 % [facility] Interpretation and review of laboratory results Abnormal [facility] LYMPHOCYTES ABSOLUTE AUTO 1.6 [facility] Lymphocytes/100 WBC (Bld) 12.2 % Low 20.5 - 60.0 % [facility] MCH (RBC) [Entitic mass] 24.9 pg Low 25.9 - 34.0 pg [facility] MCHC (RBC) [Mass/Vol] 30.1 g/dL 29.9 - 35.2 g/dL [facility] MCV (RBC) [Entitic vol] 82.8 fL 80.0 - 94.0 fL [facility] MONOCYTES ABSOLUTE AUTO 1 High [facility] Monocytes/100 WBC (Bld) 7.3 % 1.7 - 12.0 % [facility] NEUTROPHILS ABSOLUTE AUTO 9.3 High [facility] Neutrophils/100 WBC (Bld) 70.2 % 43.0 - 75.0 % [facility] Platelet mean volume (Bld) [Entitic vol] 8.9 fL Low 9.5 - 13.5 fL [facility] TBH EO # 1.2 High [facility] TBH PLT [address] [facility] RBC 3.25 Low [facility] TB WBC 13.2 High [facility] ALL SED RATEon 02-14-2024 Interpretation and review of laboratory results Abnormal [facility] TBH SED RATE 67 High NINF [facility] Basic Metabolic Panelon 01-27 Anion gap [Moles/Vol] 9.9 mmol/L Normal 6.0-15.0 [facility] Comment on above: Performed By: #### C BC, BMP #### [facility] [address] [place] [address] Calcium [Mass/Vol] 7.6 mg/dL Low 8.6-10.3 [facility] Comment on above: Performed By: #### C BC, BMP #### [address] Chloride [Moles/Vol] 106 mmol/L Normal 98-107 [facility] Comment on above: Performed By: #### C BC, BMP #### [address] CO2 [Moles/Vol] 26.1 mmol/L Normal 21.0-31.0 [facility] Comment on above: Performed By: #### C BC, BMP #### [address] Creatinine [Mass/Vol] 1.59 mg/dL High 0.70-1.30 [facility] Comment on above: Performed By: #### C BC, BMP #### [address] GFR/1.73 sq M.predicted MDRD (S/P/Bld) [Vol rate/Area] 48.779 mL/min/{1.73_m2} Normal [facility] Comment on above: Performed By: #### C BC, BMP #### [address] Glucose [Mass/Vol] 128 mg/dL High 70-100 [facility] Comment on above: Result Comment: [place] Glucose Reference Range is dependent on time and content of last meal. Glucose of more than 200 mg/dL in a nonstressed, ambulatory subject supports the diagnosis of Diabetes Mellitus. ADA recommended reference range Performed By: #### C BC, BMP #### [address] Potassium [Moles/Vol] 4.0 mmol/L Normal 3.5-5.1 [facility] Comment on above: Performed By: #### C BC, BMP #### [place] [address] [place] Sodium [Moles/Vol] 138 mmol/L Normal 136-145 [facility] Comment on above: Performed By: #### C CHINTAN, BMP #### [facility] [address] Urea nitrogen [Mass/Vol] 24 mg/dL Normal 7-25 [facility] Comment on above: Performed By: #### C CHINTAN, BMP #### [facility] [address] Basophils Auto (Bld) [#/Vol] Ordered By: Nina Aleta on 02-08-2024 Basophils (Bld) [#/Vol] Automated basophil count 0.0-0.2 [facility] Basophils/100 WBC Auto (Bld) Ordered By: Nina Aleta on 02-08-2024 Basophils/100 WBC (Bld) Automated basophil % . [facility] C reactive protein [Mass/vol ume] in Serum or PlasmaOrdered By: Nina Aleta on 02-08-2024 CRP [Mass/Vol] C reactive protein [Mass/volume] in Serum or Plasma High 0.0-0.5 [facility] C-Reactive Proteinon 024 C-Reactive Protein 10.7 mg/dL High 0.0-0.5 [facility] Comment on above: Performed By: #### C CHINTAN, BMP #### [address] Calcium [Mass/volume] in Ser um or PlasmaOrdered By: Nina Aleta on 02-08-2024 Calcium [Mass/Vol] Calcium [Mass/volume ] in Serum or Plasma Low 8.6-10.3 [facility] Carbon dioxide, total [Moles /volume] in Serum or PlasmaOrdered By: Nina Aleta on 02-08-2024 CO2 [Moles/Vol] Carbon dioxide, tota l [Moles/volume] in Serum or Plasma 21.0-31.0 [facility] Chloride [Moles/volume] in S tremayne or PlasmaOrdered By: Nina Aleta on 02-08-2024 Chloride [Moles/Vol] Chloride [Moles/vol ume] in Serum or Plasma 98-107 [facility] Complete Blood Count Auto Di ffon 02-08-2024 Basophils (Bld) [#/Vol] 0.0 10*3/uL Normal 0.0-0.2 [facility] Comment on above: Performed By: #### C BC, BMP, FE PRO, B12, ESR, CRP #### [address] Basophils/100 WBC (Bld) 0.4 % Normal . [facility] Comment on above: Performed By: #### C BC, BMP, FE PRO, B12, ESR, CRP #### [address] Eosinophils (Bld) [#/Vol] 0.2 10*3/uL Normal 0.0-0.45 [facility] Comment on above: Performed By: #### C BC, BMP, FE PRO, B12, ESR, CRP #### [address] Eosinophils/100 WBC (Bld) 2.4 % Normal . [facility] Comment on above: Performed By: #### C BC, BMP, FE PRO, B12, ESR, CRP #### [address] Erythrocyte distribution width (RBC) [Ratio] 15.2 % High 12.0-14.8 [facility] Comment on above: Performed By: #### C BC, BMP, FE PRO, B12, ESR, CRP #### [address] Hematocrit (Bld) [Volume fraction] 23.1 % Low 38.8-50.0 [facility] Comment on above: Performed By: #### C BC, BMP, FE PRO, B12, ESR, CRP #### [address] Hemoglobin (Bld) [Mass/Vol] 7.8 g/dL Low 13.0-17.0 [facility] Comment on above: Performed By: #### C BC, BMP, FE PRO, B12, ESR, CRP #### [address] Lymphocytes (Bld) [#/Vol] 0.7 10*3/uL Low 1.00-4.8 [facility] Comment on above: Performed By: #### C BC, BMP, FE PRO, B12, ESR, CRP #### [address] Lymphocytes/100 WBC (Bld) 7.0 % Normal . [facility] Comment on above: Performed By: #### C BC, BMP, FE PRO, B12, ESR, CRP #### [address] MCH (RBC) [Entitic mass] 26.8 pg Low 27.5-35.2 [facility] Comment on above: Performed By: #### C BC, BMP, FE PRO, B12, ESR, CRP #### [address] MCV (RBC) [Entitic vol] 79.5 fL Low 83.5-101 [facility] Comment on above: Performed By: #### C BC, BMP, FE PRO, B12, ESR, CRP #### [address] Mean Corpuscular HGB Conc 33.7 g/dL Normal 32.5-35.6 [facility] Comment on above: Performed By: #### C BC, BMP, FE PRO, B12, ESR, CRP #### [address] Monocytes (Bld) [#/Vol] 0.5 10*3/uL Normal 0.0-0.8 [facility] Comment on above: Performed By: #### C BC, BMP, FE PRO, B12, ESR, CRP #### [address] Monocytes/100 WBC (Bld) 4.8 % Normal . [facility] Comment on above: Performed By: #### C BC, BMP, FE PRO, B12, ESR, CRP #### [address] Neutrophils (Bld) [#/Vol] 9.0 10*3/uL High 1.8-7.7 [facility] Comment on above: Performed By: #### C BC, BMP, FE PRO, B12, ESR, CRP #### [address] Neutrophils/100 WBC (Bld) 85.4 % Normal . [facility] Comment on above: Performed By: #### C BC, BMP, FE PRO, B12, ESR, CRP #### [address] NRBC% 0.0 /100{WBC} Normal 0-0.5 [facility] Comment on above: Performed By: #### C BC, BMP, FE PRO, B12, ESR, CRP #### [address] Platelet mean volume (Bld) [Entitic vol] 6.7 fL Normal 6.6-10.1 [facility] Comment on above: Performed By: #### C BC, BMP, FE PRO, B12, ESR, CRP #### [address] Platelets (Bld) [#/Vol] 220 10*3/uL Normal 150-450 [facility] Comment on above: Performed By: #### C BC, BMP, FE PRO, B12, ESR, CRP #### [address] RBC (Bld) [#/Vol] 2.91 10*6/uL Low 3.90-5.60 [facility] Comment on above: Performed By: #### C BC, BMP, FE PRO, B12, ESR, CRP #### [address] WBC (Bld) [#/Vol] 10.5 10*3/uL Normal 4.1-10.5 [facility] Comment on above: Performed By: #### C BC, BMP, FE PRO, B12, ESR, CRP #### [facility] [address] Creatinine [Mass/volume] in Serum or PlasmaOrdered By: Nina Aleta on 02-08-2024 Creatinine [Mass/Vol] Creatinine [Mass/v olume] in Serum or Plasma High 0.70-1.30 [facility] Eosinophils Auto (Bld) [#/Vo l]Ordered By: Nina Aleta on 02-08-2024 Eosinophils (Bld) [#/Vol] Automated eosinophil count 0.0-0.45 [facility] Eosinophils/100 WBC Auto (Bl d)Ordered By: Nina Aleta on 02-08-2024 Eosinophils/100 WBC (Bld) Automated eosinophil % . [facility] Erythrocyte Sedimentation Ra мария 02-08-2024 ESR (Bld) [Velocity] 44 mm/h High 0-19 [facility] Comment on above: Result Comment: PERF ORMED BY: [place] [address] PATHOLOGIST SPUN PASTE MACHINE OPERATOR FARRAH PAUL M.D. Performed By: #### C BC, BMP, FE PRO, B12, ESR, CRP #### [address] Erythrocyte distribution wid th Auto (RBC) [Ratio]Ordered By: Nina Aleta on 02-08-2024 Erythrocyte distribution width (RBC) [Ratio] Erythrocyte distribution width [Ratio] by Automated count High 12.0-14.8 [facility] Erythrocyte sedimentation ra te by Photometric methodOrdered By: Nina Aleta on 02-08-2024 ESR Photometric method (Bld) [Velocity] Erythrocyte sedimentation rate by Photometric method High 0-19 [facility] FE PROon 02-08-2024 % Iron Saturation Not performed Normal 20-50 [facility] Comment on above: Performed By: #### C BC, BMP #### [address] Ferritin [Mass/Vol] 422.9 ng/mL High 23.9-336.2 [facility] Comment on above: Performed By: #### C BC, BMP #### [facility] [address] [place] [address] [place] Iron [Mass/Vol] ug/dL Low 50-212 [facility] Comment on above: Performed By: #### C BC, BMP #### [facility] [address] [place] [address] [facility] Total Iron Binding Capacity 175 ug/dL Low 255-450 [facility] Comment on above: Performed By: #### C BC, BMP #### [facility] [address] [place] [address] [facility] Transferrin [Mass/Vol] 125 mg/dL Low 203-362 [facility] Comment on above: Performed By: #### C BC, BMP #### [facility] [address] [place] [id number] [facility] Ferritin [Mass/volume] in Se rum or PlasmaOrdered By: Nina River on 02-08-2024 Ferritin [Mass/Vol] Ferritin [Mass/volum e] in Serum or Plasma High 23.9-336.2 [facility] Glucose [Mass/volume] in Ser um or PlasmaOrdered By: Nina River on 02-08-2024 Glucose [Mass/Vol] Glucose [Mass/volume ] in Serum or Plasma High 70-100 [facility] Comment on above: ADA recommended refe rence rangeRandom Glucose Reference Range is dependent on time and content of last meal. Glucose of more than 200 mg/dL in a nonstressed, ambulatory subject supports the diagnosis of Diabetes Mellitus. Hematocrit Auto (Bld) [Volum e fraction]Ordered By: Nina River on 02-08-2024 Hematocrit (Bld) [Volume fraction] Hematocrit [Volume Fraction] of Blood by Automated count Low 38.8-50.0 [facility] Hemoglobin [Mass/volume] in BloodOrdered By: Nina River on 02-08-2024 Hemoglobin (Bld) [Mass/Vol] Hemoglobin [Mass/volume] in Blood Low 13.0-17.0 [facility] Iron [Mass/volume] in Serum or PlasmaOrdered By: Nina River on 02-08-2024 Iron [Mass/Vol] Iron [Mass/volume] i n Serum or Plasma Low 50-212 [facility] Leukocytes [#/volume] correc shreya for nucleated erythrocytes in Blood by Automated counOrdered By: Nina River on 02-08-2024 WBC corrected for nucl RBC Auto (Bld) [#/Vol] Leukocytes [#/volume] corrected for nucleated erythrocytes in Blood by Automated coun 4.1-10.5 [facility] Lymphocytes Auto (Bld) [#/Vo l]Ordered By: Ninastefan River on 02-08-2024 Lymphocytes (Bld) [#/Vol] Lymphocytes [#/volume] in Blood by Automated count Low 1.00-4.8 [facility] Lymphocytes/100 WBC Auto (Bl d)Ordered By: Nina River on 02-08-2024 Lymphocytes/100 WBC (Bld) Lymphocytes/100 leukocytes in Blood by Automated count . [facility] MCH Auto (RBC) [Entitic mass ]Ordered By: Nina River on 02-08-2024 MCH (RBC) [Entitic mass] MCH [Entitic mass] by Automated count Low 27.5-35.2 [facility] MCHC Auto (RBC) [Mass/Vol]Or dered By: Nina River on 02-08-2024 MCHC (RBC) [Mass/Vol] MCHC [Mass/volume] by Automated count 32.5-35.6 [facility] MCV Auto (RBC) [Entitic vol] Ordered By: Nina River on 02-08-2024 MCV (RBC) [Entitic vol] MCV [Entitic volume] by Automated count Low 83.5-101 [facility] Monocytes Auto (Bld) [#/Vol] Ordered By: Nina River on 02-08-2024 Monocytes (Bld) [#/Vol] Automated blood monocyte count 0.0-0.8 [facility] Monocytes/100 WBC Auto (Bld) Ordered By: Nina River on 02-08-2024 Monocytes/100 WBC (Bld) Automated monocyte % . [facility] Neutrophils Auto (Bld) [#/Vo l]Ordered By: Nina River on 02-08-2024 Neutrophils (Bld) [#/Vol] Neutrophils [#/volume] in Blood by Automated count High 1.8-7.7 [facility] Neutrophils/100 WBC Auto (Bl d)Ordered By: Nina River on 02-08-2024 Neutrophils/100 WBC (Bld) Automated neutrophil % . [facility] No Panel InformationOrdered By: Nina River on 02-08-2024 Estimated GFR (CKD-EPI) 48.779 mL/Min [facility] Creatinine Clearance (Chem N/A [facility] Nucleated erythrocytes [Pres ence] in Blood by Automated countOrdered By: Nina River on 02-08-2024 Nucleated RBC Auto Ql (Bld) Nucleated erythrocytes [Presence] in Blood by Automated count 0-0.5 [facility] Platelet mean volume Auto (B ld) [Entitic vol]Ordered By: Nina River on 02-08-2024 Platelet mean volume (Bld) [Entitic vol] Platelet mean volume [Entitic volume] in Blood by Automated count 6.6-10.1 [facility] Platelets Auto (Bld) [#/Vol] Ordered By: Nina River on 02-08-2024 Platelets (Bld) [#/Vol] Platelets [#/volume] in Blood by Automated count 150-450 [facility] Potassium [Moles/volume] in Serum or PlasmaOrdered By: Nina River on 02-08-2024 Potassium [Moles/Vol] Potassium [Moles/v olume] in Serum or Plasma 3.5-5.1 [facility] RBC Auto (Bld) [#/Vol]Ordere d By: Nina River on 02-08-2024 RBC (Bld) [#/Vol] Erythrocytes [#/volu me] in Blood by Automated count Low 3.90-5.60 [facility] Serum or plasma anion gap de terminationOrdered By: Nina River on 02-08-2024 Anion gap [Moles/Vol] Serum or plasma an ion gap determination 6.0-15.0 [facility] Serum or plasma iron binding capacity measurement (mass/volume)Ordered By: Nina River on 02-08-2024 Iron binding capacity [Mass/Vol] Iron binding capacity [Mass/volume] in Serum or Plasma Low 255-450 [facility] Serum or plasma iron saturat ion measurement (mass fraction)Ordered By: Nina River on 02-08-2024 Iron saturation [Mass fraction] Iron saturation [Mass Fraction] in Serum or Plasma [facility] Comment on above: Test not performed Sodium [Moles/volume] in Ser um or PlasmaOrdered By: Nina River on 02-08-2024 Sodium [Moles/Vol] Sodium [Moles/volume ] in Serum or Plasma 136-145 [facility] Transferrin [Mass/volume] in Serum or PlasmaOrdered By: Nina River on 02-08-2024 Transferrin [Mass/Vol] Transferrin [Mass/volume] in Serum or Plasma Low 203-362 [facility] Urea nitrogen [Mass/volume] in Serum or PlasmaOrdered By: Nina River on 02-08-2024 Urea nitrogen [Mass/Vol] Urea nitrogen [Mass/volume] in Serum or Plasma 7-25 [facility] Vitamin B12on 02-08-2024 Cobalamin (Vitamin B12) [Mass/Vol] 701 pg/mL Normal 180-914 [facility] Comment on above: Result Comment: PERF ORMED BY: [place] [address] PATHOLOGIST SPUN PASTE MACHINE OPERATOR FARRAH PAUL M.D. Performed By: #### C BC, BMP #### [address] Vitamin B12 ser/plasOrdered By: Ninabharath River on 02-08-2024 Cobalamin (Vitamin B12) [Mass/Vol] Vitamin B12 ser/plas 180-914 [facility] WBC Auto (Bld) [#/Vol]Ordere d By: Ninastefan River on 02-08-2024 WBC (Bld) [#/Vol] Leukocytes [#/volume ] in Blood by Automated count 4.1-10.5 [facility] ALL CBC WITH AUTO DIFFon 09- 05-2024 BASOPHILS ABSOLUTE AUTO 0.0 [facility] Basophils/100 WBC (Bld) 0.3 % 0.2 - 2.0 % [facility] Eosinophils/100 WBC (Bld) 6.4 % 0.9 - 7.0 % [facility] Erythrocyte distribution width (RBC) [Ratio] 16.8 % High 11.0 - 15.0 % [facility] Hematocrit (Bld) [Volume fraction] 29.4 % Low 42.0 - 54.0 % [facility] Hemoglobin (Bld) [Mass/Vol] 9.0 g/dL Low 14.0 - 18.0 g/dL [facility] IMMATURE GRANULOCYTES ABS AUTO 0.04 High [facility] Immature granulocytes/100 WBC (Bld) 0.4 % 0.0 - 0.5 % [facility] Interpretation and review of laboratory results Abnormal [facility] LYMPHOCYTES ABSOLUTE AUTO 1.8 [facility] Lymphocytes/100 WBC (Bld) 17.7 % Low 20.5 - 60.0 % [facility] MCH (RBC) [Entitic mass] 25.3 pg Low 25.9 - 34.0 pg [facility] MCHC (RBC) [Mass/Vol] 30.6 g/dL 29.9 - 35.2 g/dL [facility] MCV (RBC) [Entitic vol] 82.6 fL 80.0 - 94.0 fL [facility] MONOCYTES ABSOLUTE AUTO 0.7 [facility] Monocytes/100 WBC (Bld) 6.7 % 1.7 - 12.0 % [facility] NEUTROPHILS ABSOLUTE AUTO 7.1 High [facility] Neutrophils/100 WBC (Bld) 68.5 % 43.0 - 75.0 % [facility] Platelet mean volume (Bld) [Entitic vol] 8.8 fL Low 9.5 - 13.5 fL [facility] TBH EO # 0.7 [facility] TB PLT 280 [facility] TB RBC 3.56 Low [facility] TB WBC 10.3 [facility] BONE MARROWon 10-11-2023 BONE MARROW SEE SEPARATE REPORT Normal [facility] Comment on above: Result Comment: REVI EWED BY SOLEDAD HUYNH M.D. Performed By: #### [facility], [address]-8, MDSDF #### [facility] ([id number]) [address] [place] [id number] #### [id number], PENNY #### [facility] ([id number]) [address] [facility] [facility], [address] [place] [address] CBC AND AUTO DIFFon 15-20 24 ABSOLUTE BASOPHIL 0.0 X10E9/L Normal 0.0-0.[address] [facility] Comment on above: Performed By: #### P INR, CBCA #### [facility] ([id number]) [address] [place] [address] ABSOLUTE NEUTROPHIL 8.0 X10E9/L High 1.5-6.6 [facility] Comment on above: Performed By: #### P INR, CBCA #### [facility] ([id number]) [address] [place] [address] Basophils/100 WBC (Bld) 0.3 % Normal [facility] Comment on above: Performed By: #### P INR, CBCA #### [facility] ([id number]) [address] [place] [address] Eosinophils (Bld) [#/Vol] 0.5 10*3/uL High 0.0-0.4 [facility] Comment on above: Performed By: #### P INR, CBCA #### [facility] ([id number]) [address] [place] [address] Eosinophils/100 WBC (Bld) 4.4 % Normal [facility] Comment on above: Performed By: #### P INR, CBCA #### [facility] ([id number]) [address] [place] [address] Erythrocyte distribution width (RBC) [Ratio] 16.8 % High 11.5-15.0 [facility] Comment on above: Performed By: #### P INR, CBCA #### [facility] ([id number]) [address] [place] [address] Hematocrit (Bld) [Volume fraction] 20.1 % Low 39-49 [facility] Comment on above: Performed By: #### P INR, CBCA #### [facility] ([id number]) [address] [place] [address] Hemoglobin (Bld) [Mass/Vol] 6.6 g/dL Critically low 13.0-17.0 [facility] Comment on above: Performed By: #### P INR, CBCA #### [facility] ([id number]) [address] [place] [address] 67871 Lymphocytes (Bld) [#/Vol] 1.4 10*3/uL Normal 1.0-3.5 [facility] Comment on above: Performed By: #### P INR, CBCA #### [facility] ([id number]) [address] [place] [address] 26399 Lymphocytes/100 WBC (Bld) 13.0 % Normal [facility] Comment on above: Performed By: #### P INR, CBCA #### [facility] ([id number]) [address] [place] [address] 17536 MCH (RBC) [Entitic mass] 24.7 pg Low 27-34 [facility] Comment on above: Performed By: #### P INR, CBCA #### [facility] ([id number]) [address] [place] [address] 44267 MCHC (RBC) [Mass/Vol] 32.6 g/dL Normal 32-36 [facility] Comment on above: Performed By: #### P INR, CBCA #### [facility] ([id number]) [address] [place] [address] 12483 MCV (RBC) [Entitic vol] 76 fL Low 80-100 [facility] Comment on above: Performed By: #### P INR, CBCA #### [facility] ([id number]) [address] [place] [address] 25002 Monocytes (Bld) [#/Vol] 0.9 10*3/uL Normal 0-0.9 [facility] Comment on above: Performed By: #### P INR, CBCA #### [facility] ([id number]) [address] [place] [address] 37017 Monocytes/100 WBC (Bld) 8.2 % Normal [facility] Comment on above: Performed By: #### P INR, CBCA #### [facility] ([id number]) [address] [place] [address] 41364 Neutrophils/100 WBC (Bld) 74.1 % Normal [facility] Comment on above: Performed By: #### P INR, CBCA #### [facility] ([id number]) [address] [place] [address] 90632 Platelet mean volume (Bld) [Entitic vol] 7.0 fL Normal 7-12 [facility] Comment on above: Performed By: #### P INR, CBCA #### [facility] ([id number]) [address] [place] [address] 12352 Platelets (Bld) [#/Vol] 371 10*3/uL Normal 150-450 [facility] Comment on above: Performed By: #### P INR, CBCA #### [facility] ([id number]) [address] [place] [address] 69590 RBC COUNT 2.66 X10E12/L Low 4.10-5.70 [facility] Comment on above: Performed By: #### P INR, CBCA #### [facility] ([id number]) [address] [place] [address] 41190 WBC (Bld) [#/Vol] 10.8 10*3/uL Normal 4.0-11.0 [facility] Comment on above: Performed By: #### P INR, CBCA #### [facility] ([id number]) [address] [place] [address] 61212 DNA and RNA Extract and Hold on 10-11-2023 DNA and RNA Extract and Hold SEE COMMENTS 10/14/2023 08:52 AM Normal [facility] Comment on above: Result Comment: NOTE [...] Molecular Hematopathology Laboratory's test catalog, please contact [facility] at [phone]. Method summary: DNA and RNA were extracted from the received specimen and stored at -80 C. This test was developed and its performance characteristics determined by [facility] in a manner consistent with CLIA requirements. This test has not been cleared or approved by the U.S. Food and Drug Administration. Test Performed by: [facility] [place] [address] Floor Press Operator: Rosie Ruby Ph.D.; CLIA# [id number] Performed By: #### E XHR, 55195-8, MDSDF #### [facility] ([id number]) [address] [place] [address] #### 76545-1, PENNY #### [facility] ([id number]) [address] [place] [address] Flow cytometry specialist re view Álvaro (Unsp spec) [Interp]on 10-11-2023 FLOW CYTOMETRY BM SEE SEPARATE REPORT, REVIEWED BY PATHOLOGIST Normal [facility] Comment on above: Performed By: #### E XHR, 20525-9, MDSDF #### [facility] ([id number]) [address] [place] [address], [place] [address] #### 74332-8, BONMAR #### [facility] ([id number]) [address] [place] [address] IR BX AND ASP BONE MARROW SN [...] on the left iliac bone using an [employer] powered bone marrow biopsy system. The bone [...] Guerrero MD on 10/11/2023 9:49 AM Normal [facility] Karyotype Nom (BM)on 10-10- 024 CHROMOSOME BONE MARROW SEE COMMENTS 10/19/2023 02:37 PM Normal [facility] Comment on above: Result Comment: NOTE Test Result Flag Unit RefValue -- Chromosomes, Hematologic, BM Result Summary Normal Interpretation See Note No clonal abnormality was apparent. Since this conventional chromosome study was successful, MDS, Diag FISH was cancelled per lab protocol (Isma Christie et al., CP, 146:86-94, 2016; [facility] MDS Algorithm: [email or web address]-mmfiles/Myelodysplastic_Syndrome_G uideline_to_Diagnosis_and_Follow-up.pdf). Result 46,XY[20] Reason for Referral leukocytosis [...] of the testing process was performed at [facility] site 199811. Released By Tanvi Loo M.D. Test Performed by: [facility] [address] [place] [address] Floor Press Operator: Rosie Ruby Ph.D.; CLIA# [id number] Performed By: #### E XHR, 46933-9, MDSDF #### [facility] ([id number]) [address] [place] [address], [place] [address] #### 00404-6, BONMAR #### [facility] ([id number]) [address] [place] [address], [address] [place] [address] MYELODYSPLASTIC SYNDROME (MD Jack),DIAGNOSTIC FISH, VARIESon 10-11-2023 MYELODYSPLASTIC SYNDROME (MDS),DIAGNOSTIC FISH, VARIES SEE COMMENTS 10/22/2023 08:45 AM Normal [facility] Comment on above: Result Comment: NOTE Test Result Flag Unit RefValue -- MDS, Diagnostic FISH Interpretation TNP MDS, Diagnostic FISH was cancelled on 10/22/2023 at 08:41; Based on other test results additional testing not required. MDS FISH order was cancelled per laboratory protocol (Isma et al., Amer J Clin Pathol 146:86-94, 2016; [facility] MDS Algorithm: [email or web address]-[email or web address]/Myelodysplastic_S yndrome_Guideline_ to_Diagnosis_and_Follow-up.pdf) with Probes -RPN1(G)/MECOM(R), -TP53(R)/D17Z1(G), -D8Z2(G)/MYC(R), -H08P649(R)/20QTER(G), -U9T638(G)/EGR1(R), -D7Z1(G)/S1Z750(R) Test Performed by: [facility] [address] [place] [address] Floor Press Operator: Rosie Ruby Ph.D.; CLIA# [id number] Performed By: #### E XHR, 73223-0, MDSDF #### [facility] ([id number]) [address] [place] [address] 98254 #### 98712-4, BONMAR #### [facility] ([id number]) [address] [place] [address], [address] [place] [address] PROTIME AND INRon 10-11-2023 INR Coag (PPP) [Relative time] 1.3 {INR} High 0.8-1.1 [facility] Comment on above: Performed By: #### P INR, CBCA #### [facility] ([id number]) [address] [place] [address] 97504 PT Coag (PPP) [Time] 14.9 s High 9.8-13.2 [facility] Comment on above: Result Comment: NEW REFERENCE RANGE Performed By: #### P INR, CBCA #### [facility] ([id number]) [address] [place] [address] 96723 Surgical Pathologyon 024 Surgical Pathology Normal [facility] Comment on above: Result Comment: [facility] [address] [place] [address] 57646 Bone Marrow Consultation Patient Name:GANGA STINSON:1960 (Age: 63)Gender:MTaken:4Reported:4Physician(s):Nina River ([phone])Copy To:Khadar Guerrero M.D. Rec. #:[id number]: #[id number] Final Pathologic Diagnosis Bone marrow, aspiration and [...] acquisition are identified on maturing myeloid cells. [place] on the lymphoid population demonstrates a mixed population of phenotypically unremarkable T-cells, polyclonal B-cells, and natural killer cells, without a detectable monoclonal population. No monotypic plasma cell population is identified. Immunophenotyping antibodies tested: CD2, CD3, CD4, CD5, CD7, CD8, CD10, CD13, CD16, CD19, CD20 , CD23, CD33, CD34, CD38, CD43, CD45, CD56, CD117, CD123, CD138, O'Neill, Lambda. Cytoplasmic O'Neill/CD38, Cytoplasmic Lambda/CD38, and intrinsic VS38 Immunophenotyping Comment: Immunophenotyping has been used in this diagnostic evaluation. This test was developed and its performance characteristics determined by the [employer] [facility] Department. It has not been [...] Out Soledad Huynh MD Interpretation [place] [address], License number: [id number]. Clinical History Leukocytosis. Gross Description 1. Received in B plus fixative labeled ALLOWAY, clot is a friable portion of hemorrhagic material, 2.2 x 1.0 x 0.4 cm in aggregate. The specimen is submitted entirely in a single cassette. (1, ns, [id number], m1) LADONNA 2. Received in B plus fixative labeled ALLOWAY, core is a pale osborne-pardo cylindrical segment of bone with adherent hemorrhagic material, 1.0 cm in length and 0.2 cm in diameter. The specimen is submitted entirely in a single cassette following a period of decalcification in Rapid-Delbert Immuno. (1, ns, [id number], m1) LADONNA Comment: Per epic IR procedure [...] Bah on 06-04-2023 Glucose [Mass/Vol] 134 mg/dL [facility] Comment on above: Random Glucose Refer ence Range is dependent on time and content of last meal. Glucose of more than 200 mg/dL in a nonstressed, ambulatory subject supports the diagnosis of Diabetes Mellitus. Gram stain for investigation of transfusion reactionOrdered By: Jonathan Bah on 06-04-2023 Microscopic observation Gram stain Nom (Unsp spec) Prevotella disiens [facility] Cult,Urineon 09-26-2022 Cult,Urine Specimen Description .CLEAN CATCH URINE Culture NO SIGNIFICANT GROWTH Report Status FINAL 09/26/2022 Normal [facility] Comment on above: Performed By: #### C MPX, CDP #### [facility] [address] [place] [address] Floor Press Operator: Khadar Tang MD US RENAL COMPLETEon [...] Alexander Mcclain DO 09/19/22 Final result Normal [facility] Unremarkable ultraso und of the kidneys and urinary bladder. [facility] RIS CONSOLIDATED EXAMINATION: RETROPERITONEAL ULTRASOUND OF THE [...] of the kidneys and urinary bladder. [facility] US RENAL COMPLETEOrdered By: Alexander Mcclain on 09-19-2022 [facility] Work Phone: Basic Metabolic Profon 09-18 Anion gap [Moles/Vol] 10 mmol/L Normal 9-17 [facility] Comment on above: Performed By: #### B MP #### [facility] [address] [place] [place] [address] Floor Press Operator: Khadar Tang MD BUN/CRE Ratio 26 High 9-20 [facility] Comment on above: Performed By: #### B MP #### [facility] [address] [place] [place] [address] Floor Press Operator: Khadar Tang MD Calcium [Mass/Vol] 9.3 mg/dL Normal 8.6-10.4 [facility] Comment on above: Performed By: #### B MP #### [facility] [address] [place] [place] [address] Floor Press Operator: Khadar Tang MD Chloride [Moles/Vol] 105 mmol/L Normal 98-107 [facility] Comment on above: Performed By: #### B MP #### [facility] [address] [place] [address] Floor Press Operator: Khadar Tang MD CO2 [Moles/Vol] 22 mmol/L Normal 20-31 [facility] Comment on above: Performed By: #### B MP #### [facility] [address] [place] [address] Floor Press Operator: Khadar Tang MD Creatinine [Mass/Vol] 1.25 mg/dL High 0.70-1.20 [facility] Comment on above: Performed By: #### B MP #### [facility] [address] [place] [address] Floor Press Operator: Khadar Tang MD GFR/1.73 sq M.predicted among non-blacks MDRD (S/P/Bld) [Vol rate/Area] mL/min/{1.73_m2} Normal >60 [facility] Comment on above: Result Comment: These [...] By: #### B MP #### [facility] [address] [place] [address] [place] [address] Floor Press Operator: Khadar Tang MD Glucose [Mass/Vol] 186 mg/dL High 70-99 [facility] Comment on above: Performed By: #### B MP #### [facility] [address] [place] [address] Floor Press Operator: Khadar Tang MD Potassium [Moles/Vol] 4.1 mmol/L Normal 3.7-5.3 [facility] Comment on above: Performed By: #### B MP #### [facility] [address] [place] [address] Floor Press Operator: Khadar Tang MD Sodium [Moles/Vol] 137 mmol/L Normal 135-144 [facility] Comment on above: Performed By: #### B MP #### [address] [place] [place] [address] Floor Press Operator: Khadar Tang MD Urea nitrogen [Mass/Vol] 32 mg/dL High 8-23 [facility] Comment on above: Performed By: #### B MP #### [address] [place] [address] Floor Press Operator: Khadar Tang MD RENAL COMPLETEon 09-19-19 Radiology Study observation (narrative) [facility] Hemoglobin A1Con 2022 Glucose [Mass/Vol] 171 mg/dL Normal [facility] Comment on above: Result Comment: The ADA and AACC recommend providing the estimated average glucose result to permit better patient understanding of their HBA1c result. Performed By: #### G LYHGB #### [address] [place], [place] [address] Floor Press Operator: Jeff Casanova MD HbA1c (Bld) [Mass fraction] 7.6 % High 4.0-6.0 [facility] Comment on above: Performed By: #### G LYHGB #### [address] [place], [place] [address] Floor Press Operator: Jeff Casanova MD OPERATIVE REPORTon 3 OPERATIVE REPORT [address] [address] OPERATIVE REPORT PATIENT NAME: GANGA STINSON : 1960 MED REC NO: [id number] ROOM: ACCOUNT NO: [id number] ADMIT DATE: 2022 PROVIDER: Angeles Nagy DATE OF PROCEDURE: 2022 SURGEON: Dr. Angeles Nagy. STRATEGIC MANAGER: None. PREOPERATIVE DIAGNOSES: 1. Neurogenic bladder. 2. Urethral stricture. POSTOPERATIVE DIAGNOSES: 1. Neurogenic bladder. 2. Urethral stricture. PROCEDURE PERFORMED: Direct visual internal urethrotomy. ANESTHESIA: General. COMPLICATIONS: None. ESTIMATED BLOOD LOSS: Minimal. SPECIMENS: None. PROSTHESIS: An 18-Swedish Rowe catheter. DISPOSITION: Stable. FINDINGS: Bulbous urethral stricture. 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 DESCRIPTION OF PROCEDURE: The patient was taken back to the operating room after informed consent including all risks, benefits, and alternatives were obtained. The patient was transferred from the [facility] onto the operating room table, where he was induced under general anesthesia and given IV Ancef for preoperative antibiotic prophylaxis. To begin the case, he was prepped and draped in the normal sterile fashion and placed in dorsal lithotomy. He had a 21-Swedish sheath with a 30-degree lens passed through [...] then removed the scope and inserted an 18-Swedish Rowe catheter with ease. He was then awoken from general anesthesia, transferred to the [facility], and taken to the PACU in satisfactory condition by Nursing and Anesthesia Teams. PLAN: The patient will be discharged home per PACU criterion and follow up with me in one week for Rowe catheter removal. ANGELES NAGY [place]/Jerry_CGGIS_I Doc#: [id number] CC: Normal [facility] Basic Metabolic Panelon 04-0 Anion gap [Moles/Vol] 10 mmol/L 9 - 17 mmol/L [facility] Calcium [Mass/Vol] 8.8 mg/dL 8.6 - 10. 4 mg/dL [facility] Chloride [Moles/Vol] 106 mmol/L 98 - 10 7 mmol/L [facility] CO2 [Moles/Vol] 24 mmol/L 20 - 31 mmol/L [facility] Creatinine [Mass/Vol] 1.3 mg/dL High 0.70 - 1.20 mg/dL [facility] GFR/1.73 sq M.predicted MDRD (S/P/Bld) [Vol rate/Area] - PINF [facility] Comment on above: These results are [...] mg/dL High 70 - 99 mg/dL [facility] Interpretation and review of laboratory results Abnormal [facility] Potassium [Moles/Vol] 4.0 mmol/L 3.7 - 5.3 mmol/L [facility] Sodium [Moles/Vol] 140 mmol/L 135 - 144 mmol/L [facility] Urea nitrogen [Mass/Vol] 29 mg/dL High 8 - 23 mg/dL [facility] Urea nitrogen/Creatinine (Bld) [Mass ratio] 22 High 9 - 20 [facility] Basic Metabolic Profon 07-02 Anion gap [Moles/Vol] 10 mmol/L Normal 9-17 [facility] Comment on above: Performed By: #### C MPX, CDP #### [facility] [address] [place] [address] Floor Press Operator: Khadar Tang MD BUN/CRE Ratio 22 High 9-20 [facility] Comment on above: Performed By: #### C MPX, CDP #### [facility] [address] [place] [address] Floor Press Operator: Khadar Tang MD Calcium [Mass/Vol] 8.8 mg/dL Normal 8.6-10.4 [facility] Comment on above: Performed By: #### C MPX, CDP #### [facility] [address] [place] [address] Floor Press Operator: Khadar Tang MD Chloride [Moles/Vol] 106 mmol/L Normal 98-107 [facility] Comment on above: Performed By: #### C MPX, CDP #### [facility] [address] [place] [address] Floor Press Operator: Khadar Tang MD CO2 [Moles/Vol] 24 mmol/L Normal 20-31 [facility] Comment on above: Performed By: #### C MPX, CDP #### [facility] [address] [place] [address] Floor Press Operator: Khadar Tang MD Creatinine [Mass/Vol] 1.30 mg/dL High 0.70-1.20 [facility] Comment on above: Performed By: #### C MPX, CDP #### [facility] [address] [place] [address] Floor Press Operator: Khadar Tang MD GFR/1.73 sq M.predicted among non-blacks MDRD (S/P/Bld) [Vol rate/Area] mL/min/{1.73_m2} Normal >60 [facility] Comment on above: Result Comment: These [...] #### C MPX, CDP #### [facility] [address] [place] [address] Floor Press Operator: Khadar Tang MD Glucose [Mass/Vol] 250 mg/dL High 70-99 [facility] Comment on above: Performed By: #### C MPX, CDP #### [facility] [address] [place] [address] Floor Press Operator: Khadar Tang MD Potassium [Moles/Vol] 4.0 mmol/L Normal 3.7-5.3 [facility] Comment on above: Performed By: #### C MPX, CDP #### [facility] [address] [place], [place] [address] Floor Press Operator: Khadar Tang MD Sodium [Moles/Vol] 140 mmol/L Normal 135-144 [facility] Comment on above: Performed By: #### C MPX, CDP #### [facility] [address] [place], [place] [address] Floor Press Operator: Khadar Tang MD Urea nitrogen [Mass/Vol] 29 mg/dL High 8-23 [facility] Comment on above: Performed By: #### C MPX, CDP #### [facility] [address] [place], [facility] Floor Press Operator: Khadar Tang MD CBC with Auto Differentialon 07-02-2022 Absolute Eos # 0.80 High [facility] Absolute Immature Granulocyte 0.06 [facility] Absolute Lymph # 1.38 [facility] Absolute Rice # 0.81 [facility] Basophils Absolute [facility] Basophils/100 WBC (Bld) 0 % 0 - 2 % [facility] Eosinophils/100 WBC (Bld) 7 % High 1 - 4 % [facility] Hematocrit (Bld) [Volume fraction] 26.8 % Low 40.7 - 50.3 % [facility] Hemoglobin (Bld) [Mass/Vol] 7.9 g/dL Low 13.0 - 17.0 g/dL [facility] Immature granulocytes/100 WBC (Bld) 1 % High 0 [facility] Interpretation and review of laboratory results Abnormal [facility] Lymphocytes/100 WBC (Bld) 13 % Low 24 - 43 % [facility] MCH (RBC) [Entitic mass] 23.3 pg Low 25.2 - 33.5 pg [facility] MCHC (RBC) [Mass/Vol] 29.5 g/dL 28.4 - 34.8 g/dL [facility] MCV (RBC) [Entitic vol] 79.1 fL Low 82.6 - 102.9 fL [facility] Monocytes/100 WBC (Bld) 8 % 3 - 12 % [facility] NRBC Automated 0.0 0.0 per 100 WBC [facility] Platelet distribution width (Bld) [Ratio] 16.1 % High 11.8 - 14.4 % [facility] Platelet mean volume (Bld) [Entitic vol] 9.1 fL 8.1 - 13.5 fL [facility] Platelets (Bld) [#/Vol] 241 10*3/uL [facility] RBC (Bld) [#/Vol] 3.39 10*6/uL Low 4.21 - 5.77 m/uL [facility] Segmented neutrophils/100 WBC (Bld) 71 % High 36 - 65 % [facility] Segs Absolute 7.79 [facility] WBC (Bld) [#/Vol] 10.9 10*3/uL [facility] CBC with Diffon 07-02-2022 Abs. Basophil <0.03 Normal 0.00-0.20 [facility] Comment on above: Performed By: #### C MPX, CDP #### [facility] [address] [place] [address] Floor Press Operator: Khadar Tang MD Abs.Imm.Granulocyte 0.06 k/uL Normal 0.00-0.30 [facility] Comment on above: Performed By: #### C MPX, CDP #### [facility] [address] [place] [address] Floor Press Operator: Khadar Tang MD Abs.Neutrophil (Seg) 7.79 k/uL Normal 1.50-8.10 [facility] Comment on above: Performed By: #### C MPX, CDP #### [facility] [address] [place] [address] [address] [place], [place] 14[address]483 Floor Press Operator: Khadar Tang MD Basophils/100 WBC (Bld) 0 % Normal 0-2 [facility] Comment on above: Performed By: #### C MPX, CDP #### [address] [place], [place] [address] Floor Press Operator: Khadar Tang MD Eosinophils (Bld) [#/Vol] 0.80 10*3/uL High 0.00-0.44 [facility] Comment on above: Performed By: #### C MPX, CDP #### [address] [place], [place] [address] Floor Press Operator: Khadar Tang MD Eosinophils/100 WBC (Bld) 7 % High 1-4 [facility] Comment on above: Performed By: #### C MPX, CDP #### [address] [place], [place] [id number] Floor Press Operator: Khadar Tang MD Erythrocyte distribution width (RBC) [Ratio] 16.1 % High 11.8-14.4 [facility] Comment on above: Performed By: #### C MPX, CDP #### [address] [place], [place] [address] Floor Press Operator: Khadar Tang MD Hematocrit (Bld) [Volume fraction] 26.8 % Low 40.7-50.3 [facility] Comment on above: Performed By: #### C MPX, CDP #### [address] [place] [address] Floor Press Operator: Khadar Tang MD Hemoglobin (Bld) [Mass/Vol] 7.9 g/dL Low 13.0-17.0 [facility] Comment on above: Performed By: #### C MPX, CDP #### [address] [place], [place] [address] Floor Press Operator: Khadar Tang MD Immature granulocytes/100 WBC (Bld) 1 % High 0 [facility] Comment on above: Performed By: #### C MPX, CDP #### [facility] [address] [place] [address] Floor Press Operator: Khadar Tang MD Lymphocytes (Bld) [#/Vol] 1.38 10*3/uL Normal 1.10-3.70 [facility] Comment on above: Performed By: #### C MPX, CDP #### [address] [place], [place] [address] Floor Press Operator: Khadar Tang MD Lymphocytes/100 WBC (Bld) 13 % Low 24-43 [facility] Comment on above: Performed By: #### C MPX, CDP #### [address] [place], [facility] Floor Press Operator: Khadar Tang MD MCH (RBC) [Entitic mass] 23.3 pg Low 25.2-33.5 [facility] Comment on above: Performed By: #### C MPX, CDP #### [address] [place], [place] [id number] Floor Press Operator: Khadar Tang MD MCHC (RBC) [Mass/Vol] 29.5 g/dL Normal 28.4-34.8 [facility] Comment on above: Performed By: #### C MPX, CDP #### [facility] [address] [place] [address] [address] [place], [place] [id number] Floor Press Operator: Khadar Tang MD MCV (RBC) [Entitic vol] 79.1 fL Low 82.6-102.9 [facility] Comment on above: Performed By: #### C MPX, CDP #### [address] [place] [address] Floor Press Operator: Khadar Tang MD Monocytes (Bld) [#/Vol] 0.81 10*3/uL Normal 0.10-1.20 [facility] Comment on above: Performed By: #### C MPX, CDP #### [facility] [address] [place], [place] [id number] Floor Press Operator: Khadar Tang MD Monocytes/100 WBC (Bld) 8 % Normal 3-12 [facility] Comment on above: Performed By: #### C MPX, CDP #### [facility] [address] [place], [place] [id number] Floor Press Operator: Khadar Tang MD Neutrophil (Seg) 71 % High 36-65 [facility] Comment on above: Performed By: #### C MPX, CDP #### [facility] [address] [place], [place] [phone] Floor Press Operator: Khadar Tang MD NRBC Automated 0.0 per 100 WBC Normal 0.0 [facility] Comment on above: Performed By: #### C MPX, CDP #### [facility] [address] [place] [address] Floor Press Operator: Khadar Tang MD Platelet mean volume (Bld) [Entitic vol] 9.1 fL Normal 8.1-13.5 [facility] Comment on above: Performed By: #### C MPX, CDP #### [facility] [address] [place] [address] Floor Press Operator: Khadar Tang MD Platelets (Bld) [#/Vol] 241 10*3/uL Normal 138-453 [facility] Comment on above: Performed By: #### C MPX, CDP #### [facility] [address] [place] [address] Floor Press Operator: Khadar Tang MD RBC (Bld) [#/Vol] 3.39 10*6/uL Low 4.21-5.77 [facility] Comment on above: Performed By: #### C MPX, CDP #### [facility] [address] [place] [address] Floor Press Operator: Khadar Tang MD WBC (Bld) [#/Vol] 10.9 10*3/uL Normal 3.5-11.3 [facility] Comment on above: Performed By: #### C MPX, CDP #### [facility] [address] [place] [address] Floor Press Operator: Khadar Tang MD Cult,Woundon 06-27-2022 Cult,Wound Specimen Description .WOUND Special Requests LEG Direct Exam NO NEUTROPHILS SEEN NO ORGANISMS SEEN Culture NO GROWTH Report Status FINAL 06/27/2022 Normal [facility] Comment on above: Performed By: #### C MPX, CDP #### [facility] [address] [place] [address] Floor Press Operator: Khadar Tang MD CBC auto differentialon 05-29 Absolute Eos # 0.63 High [facility] Absolute Immature Granulocyte 0.05 [facility] Absolute Lymph # 1.33 [facility] Absolute Rice # 0.82 [facility] Basophils Absolute [facility] Basophils/100 WBC (Bld) 0 % 0 - 2 % [facility] Eosinophils/100 WBC (Bld) 7 % High 1 - 4 % [facility] Hematocrit (Bld) [Volume fraction] 24.4 % Low 40.7 - 50.3 % [facility] Hemoglobin (Bld) [Mass/Vol] 7.6 g/dL Low 13.0 - 17.0 g/dL [facility] Immature granulocytes/100 WBC (Bld) 1 % High 0 [facility] Interpretation and review of laboratory results Abnormal [facility] Lymphocytes/100 WBC (Bld) 14 % Low 24 - 43 % [facility] MCH (RBC) [Entitic mass] 23.8 pg Low 25.2 - 33.5 pg [facility] MCHC (RBC) [Mass/Vol] 31.1 g/dL 28.4 - 34.8 g/dL [facility] MCV (RBC) [Entitic vol] 76.3 fL Low 82.6 - 102.9 fL [facility] Monocytes/100 WBC (Bld) 9 % 3 - 12 % [facility] NRBC Automated 0.0 0.0 per 100 WBC [facility] Platelet distribution width (Bld) [Ratio] 16.0 % High 11.8 - 14.4 % [facility] Platelet mean volume (Bld) [Entitic vol] 8.8 fL 8.1 - 13.5 fL [facility] Platelets (Bld) [#/Vol] 205 10*3/uL [facility] RBC (Bld) [#/Vol] 3.20 10*6/uL Low 4.21 - 5.77 m/uL [facility] Segmented neutrophils/100 WBC (Bld) 69 % High 36 - 65 % [facility] Segs Absolute 6.49 [facility] WBC (Bld) [#/Vol] 9.3 10*3/uL [facility] CBC with Diffon 06-26-2022 Abs. Basophil <0.03 Normal 0.00-0.20 [facility] Comment on above: Performed By: #### C MPX, CDP #### [facility] [address] [place] [address] [place] [place], [place] [id number] Floor Press Operator: Khadar Tang MD Abs.Imm.Granulocyte 0.05 k/uL Normal 0.00-0.30 [facility] Comment on above: Performed By: #### C MPX, CDP #### [facility] [address] [place] [address] Floor Press Operator: Khadar Tang MD Abs.Neutrophil (Seg) 6.49 k/uL Normal 1.50-8.10 [facility] Comment on above: Performed By: #### C MPX, CDP #### [facility] [address] [place] [address] [place] [address] Floor Press Operator: Khadar Tang MD Basophils/100 WBC (Bld) 0 % Normal 0-2 [facility] Comment on above: Performed By: #### C MPX, CDP #### [facility] [address] [place] [address] [place] [address] Floor Press Operator: Khadar Tang MD Eosinophils (Bld) [#/Vol] 0.63 10*3/uL High 0.00-0.44 [facility] Comment on above: Performed By: #### C MPX, CDP #### [address] [place] [address] Floor Press Operator: Khadar Tang MD Eosinophils/100 WBC (Bld) 7 % High 1-4 [facility] Comment on above: Performed By: #### C MPX, CDP #### [address] [place] [address] Floor Press Operator: Khadar Tang MD Erythrocyte distribution width (RBC) [Ratio] 16.0 % High 11.8-14.4 [facility] Comment on above: Performed By: #### C MPX, CDP #### [address] [place] [address] Floor Press Operator: Khadar Tang MD Hematocrit (Bld) [Volume fraction] 24.4 % Low 40.7-50.3 [facility] Comment on above: Performed By: #### C MPX, CDP #### [address] [place] [address] Floor Press Operator: Khadar Tang MD Hemoglobin (Bld) [Mass/Vol] 7.6 g/dL Low 13.0-17.0 [facility] Comment on above: Performed By: #### C MPX, CDP #### [address] [place] [address] Floor Press Operator: Khadar Tang MD Immature granulocytes/100 WBC (Bld) 1 % High 0 [facility] Comment on above: Performed By: #### C MPX, CDP #### [facility] [address] [place] [place] [address] Floor Press Operator: Khadar Tang MD Lymphocytes (Bld) [#/Vol] 1.33 10*3/uL Normal 1.10-3.70 [facility] Comment on above: Performed By: #### C MPX, CDP #### [facility] [address] [place] [address] [place] [address] Floor Press Operator: Khadar Tang MD Lymphocytes/100 WBC (Bld) 14 % Low 24-43 [facility] Comment on above: Performed By: #### C MPX, CDP #### [address] [place], [place] [id number] Floor Press Operator: Khadar Tang MD MCH (RBC) [Entitic mass] 23.8 pg Low 25.2-33.5 [facility] Comment on above: Performed By: #### C MPX, CDP #### [address] [place], [place] [phone] Floor Press Operator: Khadar Tang MD MCHC (RBC) [Mass/Vol] 31.1 g/dL Normal 28.4-34.8 [facility] Comment on above: Performed By: #### C MPX, CDP #### [facility] [address] [place] [address] [place] [place], [place] [id number] Floor Press Operator: Khadar Tang MD MCV (RBC) [Entitic vol] 76.3 fL Low 82.6-102.9 [facility] Comment on above: Performed By: #### C MPX, CDP #### [address] [place] [address] Floor Press Operator: Kahdar Tang MD Monocytes (Bld) [#/Vol] 0.82 10*3/uL Normal 0.10-1.20 [facility] Comment on above: Performed By: #### C MPX, CDP #### [facility] [address] [place], [place] [id number] Floor Press Operator: Khaadr Tang MD Monocytes/100 WBC (Bld) 9 % Normal 3-12 [facility] Comment on above: Performed By: #### C MPX, CDP #### [facility] [address] [place], [facility] Floor Press Operator: Khadar Tang MD Neutrophil (Seg) 69 % High 36-65 [facility] Comment on above: Performed By: #### C MPX, CDP #### [facility] [address] [place], [place] [id number] Floor Press Operator: Khadar Tang MD NRBC Automated 0.0 per 100 WBC Normal 0.0 [facility] Comment on above: Performed By: #### C MPX, CDP #### [address] [place], [facility] Floor Press Operator: Khadar Tang MD Platelet mean volume (Bld) [Entitic vol] 8.8 fL Normal 8.1-13.5 [facility] Comment on above: Performed By: #### C MPX, CDP #### [address] [place], [place] [id number] Floor Press Operator: Khadar Tang MD Platelets (Bld) [#/Vol] 205 10*3/uL Normal 138-453 [facility] Comment on above: Performed By: #### C MPX, CDP #### [address] [place], [place] [id number] Floor Press Operator: Khadar Tang MD RBC (Bld) [#/Vol] 3.20 10*6/uL Low 4.21-5.77 [facility] Comment on above: Performed By: #### C MPX, CDP #### [facility] [address] [place] [address] [place] [address] Floor Press Operator: Khadar Tang MD WBC (Bld) [#/Vol] 9.3 10*3/uL Normal 3.5-11.3 [facility] Comment on above: Performed By: #### C MPX, CDP #### [facility] [address] [place] [address] Floor Press Operator: Khadar Tang MD EKG Rhythm Stripon [address] [facility] Glucose, Whole Bloodon 06-26 Glucose [Mass/Vol] 95 mg/dL 74 - 100 mg/dL [facility] No Panel Informationon 06-26 No dictation [facility] Work Phone: [facility] Work Phone: Surgical Pathologyon 023 Surgical [...] SURGICAL PATHOLOGY CONSULTATION Patient Name: G[facility] Rec: [id number] Path Number: [id number] [facility] [employer] [facility] ANATOMIC PATHOLOGY [address] [place] [id number] Normal [facility] Comment on above: Performed By: #### C MPX, CDP #### [facility] [address] [place] [address] Floor Press Operator: Khadar Tang MD Blood occult stool #1on 05-29 Date, Stool #1 3 [facility] Comment on above: 30 23 Hemoglobin.gastrointe stinal spec 1 Ql (Stl) Negative NEGATIVE [facility] Time, Stool #1 1945 [facility] CBC auto differentialon 05-29 Absolute Eos # 0.63 High [facility] Absolute Immature Granulocyte 0.07 [facility] Absolute Lymph # 1.63 [facility] Absolute Rice # 0.76 [facility] Basophils Absolute [facility] Basophils/100 WBC (Bld) 0 % 0 - 2 % [facility] Eosinophils/100 WBC (Bld) 7 % High 1 - 4 % [facility] Hematocrit (Bld) [Volume fraction] 24.6 % Low 40.7 - 50.3 % [facility] Hemoglobin (Bld) [Mass/Vol] 7.6 g/dL Low 13.0 - 17.0 g/dL [facility] Immature granulocytes/100 WBC (Bld) 1 % High 0 [facility] Interpretation and review of laboratory results Abnormal [facility] Lymphocytes/100 WBC (Bld) 19 % Low 24 - 43 % [facility] MCH (RBC) [Entitic mass] 23.7 pg Low 25.2 - 33.5 pg [facility] MCHC (RBC) [Mass/Vol] 30.9 g/dL 28.4 - 34.8 g/dL [facility] MCV (RBC) [Entitic vol] 76.6 fL Low 82.6 - 102.9 fL [facility] Monocytes/100 WBC (Bld) 9 % 3 - 12 % [facility] NRBC Automated 0.0 0.0 per 100 WBC [facility] Platelet distribution width (Bld) [Ratio] 15.9 % High 11.8 - 14.4 % [facility] Platelet mean volume (Bld) [Entitic vol] 8.9 fL 8.1 - 13.5 fL [facility] Platelets (Bld) [#/Vol] 223 10*3/uL [facility] RBC (Bld) [#/Vol] 3.21 10*6/uL Low 4.21 - 5.77 m/uL [facility] Segmented neutrophils/100 WBC (Bld) 64 % 36 - 65 % [facility] Segs Absolute 5.60 [facility] WBC (Bld) [#/Vol] 8.7 10*3/uL [facility] CBC with Diffon 06-25-2022 Abs. Basophil <0.03 Normal 0.00-0.20 [facility] Comment on above: Performed By: #### T ROPI #### [facility] [address] [place] [address] [place] [id number] Floor Press Operator: Khadar Tang MD Abs.Imm.Granulocyte 0.07 k/uL Normal 0.00-0.30 [facility] Comment on above: Performed By: #### T ROPI #### [facility] [address] [place], [place] [address] Floor Press Operator: Khadar Tang MD Abs.Neutrophil (Seg) 5.60 k/uL Normal 1.50-8.10 [facility] Comment on above: Performed By: #### T ROPI #### [address] [place] [id number] Floor Press Operator: Khadar Tang MD Basophils/100 WBC (Bld) 0 % Normal 0-2 [facility] Comment on above: Performed By: #### T ROPI #### [facility] [address] [place], [facility] Floor Press Operator: Khadar Tang MD Eosinophils (Bld) [#/Vol] 0.63 10*3/uL High 0.00-0.44 [facility] Comment on above: Performed By: #### T ROPI #### [facility] [address] [place] [address] Floor Press Operator: Khadar Tang MD Eosinophils/100 WBC (Bld) 7 % High 1-4 [facility] Comment on above: Performed By: #### T ROPI #### [facility] [address] [place], [place] [phone] Floor Press Operator: Khadar Tang MD Erythrocyte distribution width (RBC) [Ratio] 15.9 % High 11.8-14.4 [facility] Comment on above: Performed By: #### T ROPI #### [address] [place], [place] [id number] Floor Press Operator: Khadar Tang MD Hematocrit (Bld) [Volume fraction] 24.6 % Low 40.7-50.3 [facility] Comment on above: Performed By: #### T ROPI #### [address] [place], [facility] Floor Press Operator: Khadar Tang MD Hemoglobin (Bld) [Mass/Vol] 7.6 g/dL Low 13.0-17.0 [facility] Comment on above: Performed By: #### T ROPI #### [address] [place], [place] [address] Floor Press Operator: Khadar Tang MD Immature granulocytes/100 WBC (Bld) 1 % High 0 [facility] Comment on above: Performed By: #### T ROPI #### [facility] [address] [place] [address] Dr. [place], [facility] Floor Press Operator: Khadar Tang MD Lymphocytes (Bld) [#/Vol] 1.63 10*3/uL Normal 1.10-3.70 [facility] Comment on above: Performed By: #### T ROPI #### [address] [place], [place] [phone] Floor Press Operator: Khadar Tang MD Lymphocytes/100 WBC (Bld) 19 % Low 24-43 [facility] Comment on above: Performed By: #### T ROPI #### [facility] [address] [place], [facility] Floor Press Operator: Khadar Tang MD MCH (RBC) [Entitic mass] 23.7 pg Low 25.2-33.5 [facility] Comment on above: Performed By: #### T ROPI #### [address] [place], [facility] Floor Press Operator: Khadar Tang MD MCHC (RBC) [Mass/Vol] 30.9 g/dL Normal 28.4-34.8 [facility] Comment on above: Performed By: #### T ROPI #### [address] [place], [facility]83 Floor Press Operator: Khadar Tang MD MCV (RBC) [Entitic vol] 76.6 fL Low 82.6-102.9 [facility] Comment on above: Performed By: #### T ROPI #### [address] [place], [facility] Floor Press Operator: Khadar Tang MD Monocytes (Bld) [#/Vol] 0.76 10*3/uL Normal 0.10-1.20 [facility] Comment on above: Performed By: #### T ROPI #### [address] [place], [facility] Floor Press Operator: Khadar Tang MD Monocytes/100 WBC (Bld) 9 % Normal 3-12 [facility] Comment on above: Performed By: #### T ROPI #### [facility] [address] [place] [address] Dr. [place], [facility] Floor Press Operator: Khadar Tang MD Neutrophil (Seg) 64 % Normal 36-65 [facility] Comment on above: Performed By: #### T ROPI #### [facility] [address] [place] [address] Dr. [place], [facility] Floor Press Operator: Khadar Tang MD NRBC Automated 0.0 per 100 WBC Normal 0.0 [facility] Comment on above: Performed By: #### T ROPI #### [facility] [address] [place], [place] [phone] Floor Press Operator: Khadar Tang MD Platelet mean volume (Bld) [Entitic vol] 8.9 fL Normal 8.1-13.5 [facility] Comment on above: Performed By: #### T ROPI #### [facility] [address] [place], [place] [id number] Floor Press Operator: Khadar Tang MD Platelets (Bld) [#/Vol] 223 10*3/uL Normal 138-453 [facility] Comment on above: Performed By: #### T ROPI #### [address] [place], [facility]83 Floor Press Operator: Khadar Tang MD RBC (Bld) [#/Vol] 3.21 10*6/uL Low 4.21-5.77 [facility] Comment on above: Performed By: #### T ROPI #### [address] [place], [place] [id number] Floor Press Operator: Khadar Tang MD WBC (Bld) [#/Vol] 8.7 10*3/uL Normal 3.5-11.3 [facility] Comment on above: Performed By: #### T ROPI #### [facility] [address] [place] [address] Dr. [place], [place] [phone] Floor Press Operator: Khadar Tang MD Comp Metabolic Pr/rfx MGon 0 06-25-2022 Albumin [Mass/Vol] 2.8 g/dL Low 3.5-5.2 [facility] Comment on above: Performed By: #### T ROPI #### [facility] [address] [place] [address] Floor Press Operator: Khadar Tang MD Albumin/Glob Ratio 0.7 Low 1.0-2.5 [facility] Comment on above: Performed By: #### T ROPI #### [facility] [address] [place], [place] [id number] Floor Press Operator: Khadar Tang MD Alkaline Phos 75 U/L Normal 40-129 [facility] Comment on above: Performed By: #### T ROPI #### [facility] [address] [place], [place] [id number] Floor Press Operator: Khadar Tagn MD ALT [Catalytic activity/Vol] 9 U/L Normal 5-41 [facility] Comment on above: Performed By: #### T ROPI #### [facility] [address] [place], [place] [id number] Floor Press Operator: Khadar Tang MD Anion gap [Moles/Vol] 6 mmol/L Low 9-17 [facility] Comment on above: Performed By: #### T ROPI #### [facility] [address] [place], [place] [phone] Floor Press Operator: Khadar Tang MD AST [Catalytic activity/Vol] 10 U/L Normal <40 [facility] Comment on above: Performed By: #### T ROPI #### [facility] [address] [place], [place] [id number] Floor Press Operator: Khadar Tang MD Bilirubin [Mass/Vol] 0.3 mg/dL Normal 0.3-1.2 [facility] Comment on above: Performed By: #### T ROPI #### [facility] [address] [place], [place] [id number] Floor Press Operator: Khadar Tang MD BUN/CRE Ratio 20 Normal 9-20 [facility] Comment on above: Performed By: #### T ROPI #### [facility] [address] [place], [place] [id number] Floor Press Operator: Khadar Tang MD Calcium [Mass/Vol] 8.7 mg/dL Normal 8.6-10.4 [facility] Comment on above: Performed By: #### T ROPI #### [facility] [address] [place], [place] [id number] Floor Press Operator: Khadar aTng MD Chloride [Moles/Vol] 113 mmol/L High 98-107 [facility] Comment on above: Performed By: #### T ROPI #### [facility] [address] [place] [address] Floor Press Operator: Khadar Tang MD CO2 [Moles/Vol] 20 mmol/L Normal 20-31 [facility] Comment on above: Performed By: #### T ROPI #### [facility] [address] [place], [place] [id number] Floor Press Operator: Khadar Tang MD Creatinine [Mass/Vol] 0.97 mg/dL Normal 0.70-1.20 [facility] Comment on above: Performed By: #### T ROPI #### [facility] [address] [place] [address] Floor Press Operator: Khadar Tang MD GFR/1.73 sq M.predicted among non-blacks MDRD (S/P/Bld) [Vol rate/Area] mL/min/{1.73_m2} Normal >60 [facility] Comment on above: Result Comment: These [...] By: #### T ROPI #### [facility] [address] [place] [address] Floor Press Operator: Khadar Tang MD Glucose [Mass/Vol] 144 mg/dL High 70-99 [facility] Comment on above: Performed By: #### T ROPI #### [facility] [address] [place] [address] Floor Press Operator: Khadar Tang MD Potassium [Moles/Vol] 4.5 mmol/L Normal 3.7-5.3 [facility] Comment on above: Performed By: #### T ROPI #### [facility] [address] [place], [place] [phone] Floor Press Operator: Khadar Tang MD Protein [Mass/Vol] 6.7 g/dL Normal 6.4-8.3 [facility] Comment on above: Performed By: #### T ROPI #### [facility] [address] [place], [place] [phone] Floor Press Operator: Khadar Tang MD Sodium [Moles/Vol] 139 mmol/L Normal 135-144 [facility] Comment on above: Performed By: #### T ROPI #### [facility] [address] [place] [address] Floor Press Operator: Khadar Tang MD Urea nitrogen [Mass/Vol] 19 mg/dL Normal 8-23 [facility] Comment on above: Performed By: #### T ROPI #### [facility] [address] [place] [address] Floor Press Operator: Khadar Tang MD Comprehensive Metabolic Pane l w/ Reflex to MGon 06-25-2022 Albumin [Mass/Vol] 2.8 g/dL Low 3.5 - 5.2 g/dL [facility] Albumin/Globulin [Mass ratio] 0.7 {ratio} Low 1.0 - 2.5 [facility] ALP [Catalytic activity/Vol] 75 U/L 40 - 129 U/L [facility] ALT [Catalytic activity/Vol] 9 U/L 5 - 41 U/L [facility] Anion gap [Moles/Vol] 6 mmol/L Low 9 - 17 mmol/L [facility] AST [Catalytic activity/Vol] 10 U/L NINF - 40 U/L [facility] Bilirubin [Mass/Vol] 0.3 mg/dL 0.3 - 1 .2 mg/dL [facility] Calcium [Mass/Vol] 8.7 mg/dL 8.6 - 10. 4 mg/dL [facility] Chloride [Moles/Vol] 113 mmol/L High 98 - 10 7 mmol/L [facility] CO2 [Moles/Vol] 20 mmol/L 20 - 31 mmol/L [facility] Creatinine [Mass/Vol] 0.97 mg/dL 0.70 - 1.20 mg/dL [facility] GFR/1.73 sq M.predicted MDRD (S/P/Bld) [Vol rate/Area] - PINF [facility] Comment on above: These results are [...] mg/dL High 70 - 99 mg/dL [facility] Interpretation and review of laboratory results Abnormal [facility] Potassium [Moles/Vol] 4.5 mmol/L 3.7 - 5.3 mmol/L [facility] Protein [Mass/Vol] 6.7 g/dL 6.4 - 8.3 g/dL [facility] Sodium [Moles/Vol] 139 mmol/L 135 - 144 mmol/L [facility] Urea nitrogen [Mass/Vol] 19 mg/dL 8 - 23 mg/dL [facility] Urea nitrogen/Creatinine (Bld) [Mass ratio] 20 9 - 20 [facility] Cult,Woundon 06-25-2022 Cult,Wound Specimen Description .BUTTOCK Direct Exam FEW NEUTROPHILS MODERATE GRAM POSITIVE COCCI IN PAIRS MODERATE GRAM POSITIVE RODS Culture NORMAL SKIN ROBBEI Report Status FINAL 06/25/2022 [facility] Comment on above: Performed By: #### T ROPI #### [facility] [address] [place] [address] Floor Press Operator: Khadar Tang MD EKG Rhythm Stripon [address] [facility] ml [facility] Occult Blood, Fecalon 2022 Occult Blood 1 Negative Normal NEG [facility] Comment on above: Performed By: #### C MPX, CDP #### [facility] [address] [place] [address] [place] [address] Floor Press Operator: Khadar Tang MD Specimen 1 Date [facility] Comment on above: Result Comment: Performed By: #### C MPX, CDP #### [facility] [address] [place] [address] [place] [address] Floor Press Operator: Khadar Tang MD Specimen 1 Time 1944 [facility] Comment on above: Performed By: #### C MPX, CDP #### [facility] [address] [place] [address] Dr[address] [place], [place] [id number] Floor Press Operator: Khadar Tang MD Surgical Pathologyon 023 [...] SURGICAL PATHOLOGY CONSULTATION Patient Name: GANGA STINSON [facility] Rec: [id number] Path Number: [id number] [facility] PATHOLOGISTS [facility] [place] ANATOMIC PATHOLOGY [address] [place] [address]. [place], [place] [address] Normal [facility] Comment on above: Performed By: #### C RICHX, CDP #### [facility] [address] [place] [address] Floor Press Operator: Khadar Tang MD TYPE AND SCREENon 06-25-2022 ABO/Rh Negative [facility] Arm Band Number [id number] [facility] Blood Bank Blood Product Expiration Date [id number] [facility] Blood Bank ISBT Product Blood Type 9500 [facility] Blood Bank Unit Type and Rh Negative [facility] Blood product type Nom (BPU) Leukocyte Reduced Red Cell [facility] Blood product unit ID (Dose) [#] [id number] [facility] Crossmatch Result COMPATIBLE [facility] Dispense Status TRANSFUSED [facility] Expiration Date 06/27/2022,2359 [facility] Product Code Blood Bank [id number] [facility] Transfusion Status OK TO TRANSFUSE B ON [facility] Unit Divison 0 [facility] Unit Issue Date/Time [id number] [facility] APTTon 06-24-2022 aPTT Coag (Bld) [Time] 35.6 s High 26.8-34.8 [facility] Comment on above: Result Comment: IV Heparin Therapy Range: 62.0-94.0 Performed By: #### C RICHX, CDP #### [facility] [address] [place] [address] Floor Press Operator: Khadar Tang MD B12/Folate Panelon Cobalamin (Vitamin B12) [Mass/Vol] 446 pg/mL Normal 232-1245 [facility] Comment on above: Performed By: #### C MPX, CDP #### [facility] [address] [place] [address] Floor Press Operator: Khadar Tang MD Folic Acid 8.2 ng/mL Normal >4.8 [facility] Comment on above: Performed By: #### C RICHX, CDP #### [facility] [address] [place] [address] Floor Press Operator: Khadar Tang MD CBC auto differentialon 05-28 Absolute Eos # 0.46 High [facility] Absolute Immature Granulocyte 0.07 [facility] Absolute Lymph # 1.52 [facility] Absolute Rice # 0.53 [facility] Basophils (Bld) [#/Vol] 0.00 10*3/uL [facility] Hematocrit (Bld) [Volume fraction] 21.7 % Low 40.7 - 50.3 % [facility] Hemoglobin (Bld) [Mass/Vol] 6.6 g/dL Critically low 13.0 - 17.0 g/dL [facility] Interpretation and review of laboratory results Abnormal [facility] MCH (RBC) [Entitic mass] 23.4 pg Low 25.2 - 33.5 pg [facility] MCHC (RBC) [Mass/Vol] 30.4 g/dL 28.4 - 34.8 g/dL [facility] MCV (RBC) [Entitic vol] 77.0 fL Low 82.6 - 102.9 fL [facility] Morphology Álvaro (Bld) [Interp] HYPOCHROMIA PRESENT [facility] NRBC Automated 0.0 0.0 per 100 WBC [facility] Platelet distribution width (Bld) [Ratio] 16.2 % High 11.8 - 14.4 % [facility] Platelet mean volume (Bld) [Entitic vol] 8.9 fL 8.1 - 13.5 fL [facility] Platelets (Bld) [#/Vol] 208 10*3/uL [facility] RBC (Bld) [#/Vol] 2.82 10*6/uL Low 4.21 - 5.77 m/uL [facility] Segmented neutrophils/100 WBC (Bld) 61 % 36 - 65 % [facility] Segs Absolute 4.02 [facility] WBC (Bld) [#/Vol] 6.6 10*3/uL [facility] CBC with Diffon 06-24-2022 Abs. Basophil 0.00 k/uL Normal 0.0-0.2 [facility] Comment on above: Performed By: #### C MPX, CDP #### [facility] [address] [place] [address] Floor Press Operator: Khadar Tang MD Abs.Imm.Granulocyte 0.07 k/uL Normal 0.00-0.30 [facility] Comment on above: Performed By: #### C MPX, CDP #### [facility] [address] [place] [address] Dr. [place], [place] [address] Floor Press Operator: Khadar Tang MD Abs.Neutrophil (Seg) 4.02 k/uL Normal 1.50-8.10 [facility] Comment on above: Performed By: #### C MPX, CDP #### [address] [place] [address] Floor Press Operator: Khadar Tang MD Eosinophils (Bld) [#/Vol] 0.46 10*3/uL High 0.00-0.44 [facility] Comment on above: Performed By: #### C MPX, CDP #### [facility] [address] [place] [address] Floor Press Operator: Khadar Tang MD Lymphocytes (Bld) [#/Vol] 1.52 10*3/uL Normal 1.10-3.70 [facility] Comment on above: Performed By: #### C MPX, CDP #### [facility] [address] [place], [place] [id number] Floor Press Operator: Khadar Tang MD Monocytes (Bld) [#/Vol] 0.53 10*3/uL Normal 0.10-1.20 [facility] Comment on above: Performed By: #### C MPX, CDP #### [facility] [address] [place], [place] [phone] Floor Press Operator: Khadar Tang MD Morphology Álvaro (Bld) [Interp] HYPOCHROMIA Normal [facility] Comment on above: Result Comment: PRES ENT Performed By: #### C MPX, CDP #### [facility] [address] [place], [place] 9[address]83 Floor Press Operator: Khadar Tang MD Neutrophil (Seg) 61 % Normal 36-65 [facility] Comment on above: Performed By: #### C MPX, CDP #### [address] [place], [place] 864[address]83 Floor Press Operator: Khadar Tang MD Erythrocyte distribution width (RBC) [Ratio] 16.2 % High 11.8-14.4 [facility] Comment on above: Performed By: #### C MPX, CDP #### [address] [place], [place] 9507783 Floor Press Operator: Khadar Tang MD Hematocrit (Bld) [Volume fraction] 21.7 % Low 40.7-50.3 [facility] Comment on above: Performed By: #### C MPX, CDP #### [address] [place], [place] [phone] Floor Press Operator: Khadar Tang MD Hemoglobin (Bld) [Mass/Vol] 6.6 g/dL Critically low 13.0-17.0 [facility] Comment on above: Performed By: #### C MPX, CDP #### [address] [place], [place] 4906383 Floor Press Operator: Khadar Tang MD MCH (RBC) [Entitic mass] 23.4 pg Low 25.2-33.5 [facility] Comment on above: Performed By: #### C MPX, CDP #### [facility] [address] [place], [facility] Floor Press Operator: Khadar Tang MD MCHC (RBC) [Mass/Vol] 30.4 g/dL Normal 28.4-34.8 [facility] Comment on above: Performed By: #### C MPX, CDP #### [address] [place], [facility]83 Floor Press Operator: Khadar Tang MD MCV (RBC) [Entitic vol] 77.0 fL Low 82.6-102.9 [facility] Comment on above: Performed By: #### C MPX, CDP #### [address] [place] [id number] Floor Press Operator: Khadar Tang MD NRBC Automated 0.0 per 100 WBC Normal 0.0 [facility] Comment on above: Performed By: #### C MPX, CDP #### [address] [place], [place] 1546183 Floor Press Operator: Khadar Tang MD Platelet mean volume (Bld) [Entitic vol] 8.9 fL Normal 8.1-13.5 [facility] Comment on above: Performed By: #### C MPX, CDP #### [address] [place], [facility] Floor Press Operator: Khadar Tang MD Platelets (Bld) [#/Vol] 208 10*3/uL Normal 138-453 [facility] Comment on above: Performed By: #### C MPX, CDP #### [address] [place] [address] Floor Press Operator: Khadar Tang MD RBC (Bld) [#/Vol] 2.82 10*6/uL Low 4.21-5.77 [facility] Comment on above: Performed By: #### C MPX, CDP #### [address] [place], [place] 1927583 Floor Press Operator: Khadar Tang MD WBC (Bld) [#/Vol] 6.6 10*3/uL Normal 3.5-11.3 [facility] Comment on above: Performed By: #### C MPX, CDP #### [address] [place], [place] 8535683 Floor Press Operator: Khadar Tang MD Basophils/100 WBC (Bld) 0 % Normal 0-2 [facility] Comment on above: Performed By: #### C MPX, CDP #### [address] [place], [place] 1518783 Floor Press Operator: Khadar Tang MD Eosinophils/100 WBC (Bld) 7 % High 1-4 [facility] Comment on above: Performed By: #### C MPX, CDP #### [address] [place], [place] 5114883 Floor Press Operator: Khadar Tang MD Immature granulocytes/100 WBC (Bld) 1 % High 0 [facility] Comment on above: Performed By: #### C MPX, CDP #### [address] [place], [place] 4227683 Floor Press Operator: Khadar Tang MD Lymphocytes/100 WBC (Bld) 23 % Low 24-43 [facility] Comment on above: Performed By: #### C MPX, CDP #### [address] [place] [address] Floor Press Operator: Khadar Tang MD Monocytes/100 WBC (Bld) 8 % Normal 3-12 [facility] Comment on above: Performed By: #### C MPX, CDP #### [address] [place] [address] Floor Press Operator: Khadar Tang MD Comp Metabolic Pr/rfx MGon 0 - Albumin [Mass/Vol] 2.4 g/dL Low 3.5-5.2 [facility] Comment on above: Performed By: #### C MPX, CDP #### [facility] [address] [place] [address] Floor Press Operator: Khadar Tang MD Albumin/Glob Ratio 0.6 Low 1.0-2.5 [facility] Comment on above: Performed By: #### C MPX, CDP #### [facility] [address] [place], [place] 5811783 Floor Press Operator: Khadar Tang MD Alkaline Phos 75 U/L Normal 40-129 [facility] Comment on above: Performed By: #### C MPX, CDP #### [facility] [address] [place], [place] 9[address]83 Floor Press Operator: Khadar Tang MD ALT [Catalytic activity/Vol] 9 U/L Normal 5-41 [facility] Comment on above: Performed By: #### C MPX, CDP #### [facility] [address] [place] [address] Dr. [place], [place] 6086483 Floor Press Operator: Khadar Tang MD Anion gap [Moles/Vol] 7 mmol/L Low 9-17 [facility] Comment on above: Performed By: #### C MPX, CDP #### [facility] [address] [place], [place] 0571783 Floor Press Operator: Khadar Tang MD AST [Catalytic activity/Vol] 11 U/L Normal <40 [facility] Comment on above: Performed By: #### C MPX, CDP #### [facility] [address] [place], [place] 1649683 Floor Press Operator: Khadar Tang MD Bilirubin [Mass/Vol] mg/dL Low 0.3-1.2 [facility] Comment on above: Performed By: #### C MPX, CDP #### [facility] [address] [place] [address] Floor Press Operator: Khadar Tang MD BUN/CRE Ratio 23 High 9-20 [facility] Comment on above: Performed By: #### C MPX, CDP #### [facility] [address] [place], [place] 2281583 Floor Press Operator: Khadar Tang MD Calcium [Mass/Vol] 8.5 mg/dL Low 8.6-10.4 [facility] Comment on above: Performed By: #### C MPX, CDP #### [facility] [address] [place], [place] 78[address]83 Floor Press Operator: Khadar Tang MD Chloride [Moles/Vol] 115 mmol/L High 98-107 [facility] Comment on above: Performed By: #### C MPX, CDP #### [facility] [address] [place], [place] 8186783 Floor Press Operator: Khadar Tang MD CO2 [Moles/Vol] 18 mmol/L Low 20-31 [facility] Comment on above: Performed By: #### C MPX, CDP #### [facility] [address] [place] [address] Floor Press Operator: Khadar Tang MD Creatinine [Mass/Vol] 1.11 mg/dL Normal 0.70-1.20 [facility] Comment on above: Performed By: #### C MPX, CDP #### [facility] [address] [place] [address] Floor Press Operator: Khadar Tang MD GFR/1.73 sq M.predicted among non-blacks MDRD (S/P/Bld) [Vol rate/Area] mL/min/{1.73_m2} Normal >60 [facility] Comment on above: Result Comment: These [...] #### C MPX, CDP #### [facility] [address] [place] [address] Floor Press Operator: Khadar Tang MD Glucose [Mass/Vol] 137 mg/dL High 70-99 [facility] Comment on above: Performed By: #### C MPX, CDP #### [facility] [address] [place] [address] Floor Press Operator: Khadar Tang MD Potassium [Moles/Vol] 4.9 mmol/L Normal 3.7-5.3 [facility] Comment on above: Performed By: #### C MPX, CDP #### [facility] [address] [place] [address] Dr. [place], [place] 7580183 Floor Press Operator: Khadar Tang MD Protein [Mass/Vol] 6.3 g/dL Low 6.4-8.3 [facility] Comment on above: Performed By: #### C MPX, CDP #### [facility] [address] [place] [address] Dr. [place], [place] 1825383 Floor Press Operator: Khadar Tang MD Sodium [Moles/Vol] 140 mmol/L Normal 135-144 [facility] Comment on above: Performed By: #### C MPX, CDP #### [facility] [address] [place] [address] Floor Press Operator: Khadar Tang MD Urea nitrogen [Mass/Vol] 26 mg/dL High 8-23 [facility] Comment on above: Performed By: #### C MPX, CDP #### [facility] [address] [place] [address] Dr. [place], [place] 3795183 Floor Press Operator: Khadar Tang MD Comprehensive Metabolic Pane l w/ Reflex to MGon 06-24-2022 Albumin [Mass/Vol] 2.4 g/dL Low 3.5 - 5.2 g/dL [facility] Albumin/Globulin [Mass ratio] 0.6 {ratio} Low 1.0 - 2.5 [facility] ALP [Catalytic activity/Vol] 75 U/L 40 - 129 U/L [facility] ALT [Catalytic activity/Vol] 9 U/L 5 - 41 U/L [facility] Anion gap [Moles/Vol] 7 mmol/L Low 9 - 17 mmol/L [facility] AST [Catalytic activity/Vol] 11 U/L NINF - 40 U/L [facility] Bilirubin [Mass/Vol] mg/dL Low 0.3 - 1 .2 mg/dL [facility] [employer] Calcium [Mass/Vol] 8.5 mg/dL Low 8.6 - 10. 4 mg/dL [facility] Chloride [Moles/Vol] 115 mmol/L High 98 - 10 7 mmol/L [facility] CO2 [Moles/Vol] 18 mmol/L Low 20 - 31 mmol/L [facility] Creatinine [Mass/Vol] 1.11 mg/dL 0.70 - 1.20 mg/dL [facility] GFR/1.73 sq M.predicted MDRD (S/P/Bld) [Vol rate/Area] - PINF [facility] Comment on above: These results are [...] 137 mg/dL High 70 - 99 mg/dL [facility] Interpretation and review of laboratory results Abnormal [facility] [employer] Potassium [Moles/Vol] 4.9 mmol/L 3.7 - 5.3 mmol/L [facility] Protein [Mass/Vol] 6.3 g/dL Low 6.4 - 8.3 g/dL [employer] Sodium [Moles/Vol] 140 mmol/L 135 - 144 mmol/L [employer] Urea nitrogen [Mass/Vol] 26 mg/dL High 8 - 23 mg/dL [employer] [facility] Urea nitrogen/Creatinine (Bld) [Mass ratio] 23 High 9 - [address] [facility] Culture, Wound Aerobic Onlyo n 06-24-2022 Interpretation and review of laboratory results Abnormal [employer] Microorganism identified Cx Nom (Unsp spec) NORMAL SKIN ROBBIE [employer] [facility] Microorganism or agent identified Nom (Unsp spec) FEW NEUTROPHILS Abnormal [employer] Specimen Description .BUTTOCK [employer] EKG 12 Leadon 06-24-2022 Atrial Rate 64 BPM [employer] Work Phone: P Sodus 51 degrees [employer] Work Phone: P-R Interval 174 ms [employer] Work Phone: Q-T Interval 394 ms [employer] Work Phone: QRS Duration 94 ms [employer] Work Phone: QTc Calculation (Bazett) 406 ms [employer] Work Phone: R Sodus 20 degrees [employer] Work Phone: T Sodus 22 degrees [employer] Work Phone: Ventricular Rate 64 BPM [facility] [employer] Work Phone: Normal sinus rhythm Inferior infarct , age undetermined Abnormal ECG When compared with ECG of 22-JUN-2022 17:28, Minimal criteria for Inferior infarct is now Present Confirmed by Michelle Noe MD ([id number]) on 06/24/2022 10:31:37 PM [facility] Michelle Noe MD - 06/24/2022 Normal sinus rhythm Inferior infarct , age undetermined Abnormal ECG When compared with ECG of 22-JUN-2022 17:28, Minimal criteria for Inferior infarct is now Present Confirmed by Michelle Noe MD ([id number]) on 06/24/2022 10:31:37 PM [facility] Work Phone: [facility]ITAL[facility]addivil[facility] [employer] [facility] [employer] Work Phone: EKG Rhythm Stripon [address] [facility] ML [facility] Echocardiogram complete 2D w ith doppler with coloron 06-24-2022 Left ventricular Ejection fraction 60 [facility] Work Phone: LVEF MODALITY ECHO [facility] [employer] Work Phone: [facility] Transthoracic Echocardiography Report (TTE) Patient Name ALLOWAY Date of Study 06/24/2022 GANGA Evans Date of 1960 Gender Male Age 61 year(s) Race Room Number 0334 Height: 71 inch, 180.34 cm Corporate ID [id number] Weight: 252 pounds, 114.3 kg # Patient Acct [id number] BSA: 2.33 m^2 BMI: 35.15 kg/m^2 # MR # [id number] Line Servicer Jeanette Clarke Interpreting Physician Michelle Noe Fellow Referring Nurse Shelly Mondragon, Practitioner [employer] Interpreting Referring Physician Fellow Type of Study TTE procedure:2D Echocardiogram, M-Mode, Doppler, Color Doppler. Procedure Date Date: 06/24/2022 Start: 09:47 AM Study Location: [facility] Indications:Abnormal ECG. History / Tech. Comments: [...] MD / Result, Unknown Provider - 06/24/2022 [facility] Transthoracic Echocardiography Report (TTE) Patient Name ALLOWAY Date of Study 06/24/2022 GANGA Evans Date of 1960 Gender Male Age 61 year(s) Race Room Number 0334 Height: 71 inch, 180.34 cm Corporate ID [id number] Weight: 252 pounds, 114.3 kg # Patient Acct [id number] BSA: 2.33 m^2 BMI: 35.15 kg/m^2 # MR # [id number] Line Servicer Jeanette Clarke Interpreting Physician Michelle Noe Fellow Referring Nurse Shelly Mondragon, Practitioner DOLLY Interpreting Referring Physician Fellow Type of Study TTE procedure:2D Echocardiogram, M-Mode, Doppler, Color Doppler. Procedure Date Date: 06/24/2022 Start: 09:47 AM Study Location: [facility] Indications:Abnormal ECG. History / Tech. Comments: [...] Wall E' velocity:0.13 m/s Lateral Wall E/E':9.8 [facility] Work Phone: [facility] Work Phone: Glucose, Whole Bloodon 06-24 Glucose [Mass/Vol] 114 mg/dL High 74 - 100 mg/dL [facility] Interpretation and review of laboratory results Abnormal [facility] Hemoglobin and Hematocriton 06-24-2022 Hematocrit (Bld) [Volume fraction] 25.1 % Low 40.7 - 50.3 % [facility] Hemoglobin (Bld) [Mass/Vol] 7.8 g/dL Low 13.0 - 17.0 g/dL [facility] Interpretation and review of laboratory results Abnormal [facility] Hgb/Hcton 06-24-2022 Hematocrit (Bld) [Volume fraction] 25.1 % Low 40.7-50.3 [facility] Comment on above: Performed By: #### C MPX, CDP #### [facility] [address] [place] [address] [place] [place] [address] Floor Press Operator: Khadar Tang MD Hemoglobin (Bld) [Mass/Vol] 7.8 g/dL Low 13.0-17.0 [facility] Comment on above: Performed By: #### C MPX, CDP #### [facility] [address] [place] [phone] Floor Press Operator: Khadar Tang MD Iron Binding Cap.on 06-25-19 23 % Fe Saturation 19 % Low 20-55 [facility] Comment on above: Performed By: #### C MPX, CDP #### [facility] [address] [place] [address] Floor Press Operator: Khadar Tang MD Iron [Mass/Vol] 33 ug/dL Low 59-158 [facility] Comment on above: Performed By: #### C MPX, CDP #### [facility] [address] [place] [address] Floor Press Operator: Khadar Tang MD Total Fe Binding Cap 175 ug/dL Low 250-450 [facility] Comment on above: Performed By: #### C MPX, CDP #### [facility] [address] [place] [address] Floor Press Operator: Khadar Tang MD Unbound Fe Bind Cap 142 ug/dL Normal 112-347 [facility] Comment on above: Performed By: #### C MPX, CDP #### [facility] [address] [place] [address] Floor Press Operator: Khadar Tang MD Iron and TIBCon 06-24-2022 Interpretation and review of laboratory results Abnormal [facility] Iron [Mass/Vol] 33 ug/dL Low 59 - 158 ug/dL [facility] Iron binding capacity [Mass/Vol] 175 ug/dL Low 250 - 450 ug/dL [facility] Iron Saturation 19 % Low 20 - 55 % [facility] UIBC 142 ug/dL 112 - 347 ug/dL [facility] Laboratory - Microbiology an d Antimicrobial susceptibilityon 06-24-2022 Microorganism or agent identified Nom (Unsp spec) Positive Abnormal [facility] Lipid Panelon 06-24-2022 Cholesterol [Mass/Vol] 147 mg/dL NINF - 200 mg/dL [facility] Comment on above: Cholesterol Guidelines: <200 Desirable 200-240 Borderline >240 Undesirable Cholesterol in HDL [Mass/Vol] 28 mg/dL Low 40 - PINF mg/dL [facility] Comment on above: HDL Guidelines: <40 Undesirable 40-59 Borderline >59 Desirable Cholesterol in LDL [Mass/Vol] 98 mg/dL 0 - 130 mg/dL [facility] Comment on above: LDL Guidelines: <100 Desirable 100-129 Near to/above Desirable 130-159 Borderline >159 Undesirable Direct (measured) LDL and calculated LDL are not interchangeable tests. Cholesterol.total/Cho lesterol in HDL [Mass ratio] 5.3 {ratio} High NINF - 5 [facility] Interpretation and review of laboratory results Abnormal [facility] Triglyceride [Mass/Vol] 107 mg/dL NINF - 150 mg/dL [facility] Comment on above: Triglyceride Guidelines: <150 Desirable 150-199 Borderline 200-499 High >499 Very high Based on AHA Guidelines for fasting triglyceride, December 2011. [facility] Lipid Profileon 06-24-2022 Cholesterol [Mass/Vol] 147 mg/dL Normal <200 [facility] Comment on above: Result Comment: Cholesterol Guidelines: <200 Desirable 200-240 Borderline >240 Undesirable Performed By: #### T ROPI #### [facility] [address] [place] [address] Floor Press Operator: Khadar Tang MD Cholesterol in HDL [Mass/Vol] 28 mg/dL Low >40 [facility] Comment on above: Result Comment: HDL Guidelines: <40 Undesirable 40-59 Borderline >59 Desirable Performed By: #### T ROPI #### [facility] [address] [place] [address] Floor Press Operator: Khadar Tang MD Cholesterol in LDL [Mass/Vol] 98 mg/dL Normal 0-130 [facility] Comment on above: Result Comment: LDL Guidelines: <100 Desirable 100-129 Near to/above Desirable 130-159 Borderline >159 Undesirable Direct (measured) LDL and calculated LDL are not interchangeable tests. Performed By: #### T ROPI #### [facility] [address] [place] [address] Floor Press Operator: Khadar Tang MD Cholesterol.total/Cho lesterol in HDL [Mass ratio] 5.3 {ratio} High <5 [facility] Comment on above: Performed By: #### T ROPI #### [facility] [address] [place] [address] Floor Press Operator: Khadar Tang MD Triglyceride [Mass/Vol] 107 mg/dL Normal <150 [facility] Comment on above: Result Comment: Triglyceride Guidelines: <150 Desirable 150-199 Borderline 200-499 High >499 Very high Based on AHA Guidelines for fasting triglyceride, December 2011. Performed By: #### T CINDYI #### [facility] [address] [place] [address] Floor Press Operator: Khadar Tang MD PTon 06-24-2022 INR Coag (PPP) [Relative time] 1.1 {INR} Normal [facility] Comment on above: Result Comment: Therapeutic Range: Moderate Anticoagulant Intensity: INR = 2.0-3.0 High Anticoagulant Intensity: INR = 2.5-3.5 Performed By: #### C MPX, CDP #### [facility] [address] [place], [place] [id number] Floor Press Operator: Khadar Tang MD PT Coag (PPP) [Time] 14.8 s Normal 11.9-14.8 [facility] Comment on above: Performed By: #### C MPX, CDP #### [facility] [address] [place], [place] [id number] Floor Press Operator: Khadar Tang MD PTTon 06-24-2022 aPTT Coag (Bld) [Time] 35.6 s High [facility] Comment on above: IV Heparin Therapy Range: 62.0-94.0 Interpretation and review of laboratory results Abnormal [facility] Protime-INRon 06-24-2022 INR Coag (PPP) [Relative time] 1.1 {INR} [facility] Comment on above: Therapeutic Range: Moderate Anticoagulant Intensity: INR = 2.0-3.0 High Anticoagulant Intensity: INR = 2.5-3.5 PT Coag (PPP) [Time] 14.8 s [facility] Troponinon 06-24-2022 Troponin, High Sens 57 ng/L Critically high 0-22 [facility] Comment on above: Result Comment: High Sensitivity Troponin values cannot be compared with other Troponin methodologies. Performed By: #### C MPX, CDP #### [facility] [address] [place] [id number] Floor Press Operator: Khadar Tang MD Interpretation and review of laboratory results Abnormal [facility] Troponin I.cardiac DL <= 0.01 ng/mL [Mass/Vol] 57 ng/L Critically high 0 - 22 ng/L [facility] Comment on above: High Sensitivity Tro ponin values cannot be compared with other Troponin methodologies. [facility] Troponin, High Sens 58 ng/L Critically high 0-22 [facility] Comment on above: Result Comment: High Sensitivity Troponin values cannot be compared with other Troponin methodologies. Performed By: #### T ROPI #### [facility] [address] [place] [phone] Floor Press Operator: Khadar Tang MD Interpretation and review of laboratory results Abnormal [facility] Troponin I.cardiac DL <= 0.01 ng/mL [Mass/Vol] 58 ng/L Critically high 0 - 22 ng/L [facility] Comment on above: High Sensitivity Tro ponin values cannot be compared with other Troponin methodologies. [facility] Troponin, High Sens 59 ng/L Critically high 0-22 [facility] Comment on above: Result Comment: High Sensitivity Troponin values cannot be compared with other Troponin methodologies. Performed By: #### C MPX, CDP #### [facility] [address] [place] [phone] Floor Press Operator: Khadar Tang MD Interpretation and review of laboratory results Abnormal [facility] Troponin I.cardiac DL <= 0.01 ng/mL [Mass/Vol] 59 ng/L Critically high 0 - 22 ng/L [facility] Comment on above: High Sensitivity Tro ponin values cannot be compared with other Troponin methodologies. [facility] Type + Screenon 06-24-2022 Type + Screen Sample Expiration 06/27/2022,2359 Arm Band Number [id number] ABO/Rh(D) A NEGATIVE Antibody Screen NEGATIVE Unit Number [id number] Blood Component Type Leukocyte Reduced Red Cell Unit Division 00 Status of Unit TRANSFUSED Transfusion Status OK TO TRANSFUSE Crossmatch Result COMPATIBLE Normal [facility] Comment on above: Performed By: #### C MPX, CDP #### [facility] [address] [place] [address] Floor Press Operator: Khadar Tang MD Vitamin B12 & Folateon 06-24 Cobalamin (Vitamin B12) [Mass/Vol] 446 pg/mL 232 - 1245 pg/mL [facility] Folate [Mass/Vol] 8.2 ng/mL 4.8 - PINF ng/mL [facility] CBC auto differentialon 05-28 Absolute Eos # 0.65 High [facility] Absolute Immature Granulocyte 0.06 [facility] Absolute Lymph # 1.94 [facility] Absolute Rice # 0.72 [facility] Basophils (Bld) [#/Vol] 0.04 10*3/uL [facility] Basophils/100 WBC (Bld) 0 % 0 - 2 % [facility] Eosinophils/100 WBC (Bld) 7 % High 1 - 4 % [facility] Hematocrit (Bld) [Volume fraction] 25.0 % Low 40.7 - 50.3 % [facility] Hemoglobin (Bld) [Mass/Vol] 7.5 g/dL Low 13.0 - 17.0 g/dL [facility] Immature granulocytes/100 WBC (Bld) 1 % High 0 [facility] Interpretation and review of laboratory results Abnormal [facility] Lymphocytes/100 WBC (Bld) 22 % Low 24 - 43 % [facility] MCH (RBC) [Entitic mass] 23.3 pg Low 25.2 - 33.5 pg [facility] MCHC (RBC) [Mass/Vol] 30.0 g/dL 28.4 - 34.8 g/dL [facility] MCV (RBC) [Entitic vol] 77.6 fL Low 82.6 - 102.9 fL [facility] Monocytes/100 WBC (Bld) 8 % 3 - 12 % [facility] NRBC Automated 0.0 0.0 per 100 WBC [facility] Platelet distribution width (Bld) [Ratio] 16.4 % High 11.8 - 14.4 % [facility] Platelet mean volume (Bld) [Entitic vol] 8.7 fL 8.1 - 13.5 fL [facility] Platelets (Bld) [#/Vol] 263 10*3/uL [facility] RBC (Bld) [#/Vol] 3.22 10*6/uL Low 4.21 - 5.77 m/uL [facility] Segmented neutrophils/100 WBC (Bld) 62 % 36 - 65 % [facility] Segs Absolute 5.55 [facility] WBC (Bld) [#/Vol] 9.0 10*3/uL [facility] CBC with Diffon 06-23-2022 Abs. Basophil 0.04 k/uL Normal 0.00-0.20 [facility] Comment on above: Performed By: #### C MPX, CDP #### [facility] [address] [place] [address] [place] [address] Floor Press Operator: Khadar Tang MD Abs.Imm.Granulocyte 0.06 k/uL Normal 0.00-0.30 [facility] Comment on above: Performed By: #### C MPX, CDP #### [address] [place], [place] [phone] Floor Press Operator: Khadar Tang MD Abs.Neutrophil (Seg) 5.55 k/uL Normal 1.50-8.10 [facility] Comment on above: Performed By: #### C MPX, CDP #### [facility] [address] [place] [address] [address]. [place], [place] [phone] Floor Press Operator: Khadar Tang MD Basophils/100 WBC (Bld) 0 % Normal 0-2 [facility] Comment on above: Performed By: #### C MPX, CDP #### [facility] [address] [place] [address] [place] [address] Floor Press Operator: Khadar Tang MD Eosinophils (Bld) [#/Vol] 0.65 10*3/uL High 0.00-0.44 [facility] Comment on above: Performed By: #### C MPX, CDP #### [address] [place] [address] [place] [address] Floor Press Operator: Khadar Tang MD Eosinophils/100 WBC (Bld) 7 % High 1-4 [facility] Comment on above: Performed By: #### C MPX, CDP #### [address] [place], [place] [id number] Floor Press Operator: Khadar Tang MD Erythrocyte distribution width (RBC) [Ratio] 16.4 % High 11.8-14.4 [facility] Comment on above: Performed By: #### C MPX, CDP #### [address] [place] [address] Floor Press Operator: Khadar Tang MD Hematocrit (Bld) [Volume fraction] 25.0 % Low 40.7-50.3 [facility] Comment on above: Performed By: #### C MPX, CDP #### [address] [place], [place] [phone] Floor Press Operator: Khadar Tang MD Hemoglobin (Bld) [Mass/Vol] 7.5 g/dL Low 13.0-17.0 [facility] Comment on above: Performed By: #### C MPX, CDP #### [facility] [address] [place] [address] [address]. [place], [place] [id number] Floor Press Operator: Khadar Tang MD Immature granulocytes/100 WBC (Bld) 1 % High 0 [facility] Comment on above: Performed By: #### C MPX, CDP #### [address] [place] [address] [place] [address] Floor Press Operator: Khadar Tang MD Lymphocytes (Bld) [#/Vol] 1.94 10*3/uL Normal 1.10-3.70 [facility] Comment on above: Performed By: #### C MPX, CDP #### [facility] [address] [place], [place] [id number] Floor Press Operator: Khadar Tang MD Lymphocytes/100 WBC (Bld) 22 % Low 24-43 [facility] Comment on above: Performed By: #### C MPX, CDP #### [facility] [address] [place], [facility] Floor Press Operator: Khadar Tang MD MCH (RBC) [Entitic mass] 23.3 pg Low 25.2-33.5 [facility] Comment on above: Performed By: #### C MPX, CDP #### [facility] [address] [place], [facility] Floor Press Operator: Khadar Tang MD MCHC (RBC) [Mass/Vol] 30.0 g/dL Normal 28.4-34.8 [facility] Comment on above: Performed By: #### C MPX, CDP #### [address] [place], [place] [id number] Floor Press Operator: Khadar Tang MD MCV (RBC) [Entitic vol] 77.6 fL Low 82.6-102.9 [facility] Comment on above: Performed By: #### C MPX, CDP #### [facility] [address] [place] [address] Dr. [place], [facility] Floor Press Operator: Khadar Tang MD Monocytes (Bld) [#/Vol] 0.72 10*3/uL Normal 0.10-1.20 [facility] Comment on above: Performed By: #### C MPX, CDP #### [facility] [address] [place] [address] Floor Press Operator: Khadar Tang MD Monocytes/100 WBC (Bld) 8 % Normal 3-12 [facility] Comment on above: Performed By: #### C MPX, CDP #### [facility] [address] [place], [place] [id number] Floor Press Operator: Khadar Tang MD Neutrophil (Seg) 62 % Normal 36-65 [facility] Comment on above: Performed By: #### C MPX, CDP #### [facility] [address] [place], [place] 1498383 Floor Press Operator: Khadar Tang MD NRBC Automated 0.0 per 100 WBC Normal 0.0 [facility] Comment on above: Performed By: #### C MPX, CDP #### [facility] [address] [place], [place] [id number] Floor Press Operator: Khadar Tang MD Platelet mean volume (Bld) [Entitic vol] 8.7 fL Normal 8.1-13.5 [facility] Comment on above: Performed By: #### C MPX, CDP #### [facility] [address] [place], [place] [id number] Floor Press Operator: Khadar Tang MD Platelets (Bld) [#/Vol] 263 10*3/uL Normal 138-453 [facility] Comment on above: Performed By: #### C MPX, CDP #### [address] [place], [place] [id number] Floor Press Operator: Khadar Tang MD RBC (Bld) [#/Vol] 3.22 10*6/uL Low 4.21-5.77 [facility] Comment on above: Performed By: #### C MPX, CDP #### [address] [place], [place] [id number] Floor Press Operator: Khadar Tang MD WBC (Bld) [#/Vol] 9.0 10*3/uL Normal 3.5-11.3 [facility] Comment on above: Performed By: #### C MPX, CDP #### [facility] [address] [place], [place] [id number] Floor Press Operator: Khadar Tang MD Comp Metabolic Pr/rfx MGon 0 06-23-2022 Albumin [Mass/Vol] 2.9 g/dL Low 3.5-5.2 [facility] Comment on above: Performed By: #### C MPX, CDP #### [facility] [address] [place], [place] [phone] Floor Press Operator: Khadar Tang MD Albumin/Glob Ratio 0.7 Low 1.0-2.5 [facility] Comment on above: Performed By: #### C MPX, CDP #### [facility] [address] [place], [place] [phone] Floor Press Operator: Khadar Tang MD Alkaline Phos 89 U/L Normal 40-129 [facility] Comment on above: Performed By: #### C MPX, CDP #### [facility] [address] [place] [address] Dr. [place], [place] [phone] Floor Press Operator: Khadar Tang MD ALT [Catalytic activity/Vol] 11 U/L Normal 5-41 [facility] Comment on above: Performed By: #### C MPX, CDP #### [facility] [address] [place] [address] Dr. [place], [place] [phone] Floor Press Operator: Khadar Tang MD Anion gap [Moles/Vol] 8 mmol/L Low 9-17 [facility] Comment on above: Performed By: #### C MPX, CDP #### [facility] [address] [place], [place] 2326083 Floor Press Operator: Khadar Tang MD AST [Catalytic activity/Vol] 12 U/L Normal <40 [facility] Comment on above: Performed By: #### C MPX, CDP #### [facility] [address] [place], [place] [phone] Floor Press Operator: Khadar Tang MD Bilirubin [Mass/Vol] 0.2 mg/dL Low 0.3-1.2 [facility] Comment on above: Performed By: #### C MPX, CDP #### [facility] [address] [place], [place] 6855583 Floor Press Operator: Khadar Tang MD BUN/CRE Ratio 25 High 9-20 [facility] Comment on above: Performed By: #### C MPX, CDP #### [facility] [address] [place], [place] 0299483 Floor Press Operator: Khadar Tang MD Calcium [Mass/Vol] 9.0 mg/dL Normal 8.6-10.4 [facility] Comment on above: Performed By: #### C MPX, CDP #### [facility] [address] [place], [place] [id number] Floor Press Operator: Khadar Tang MD Chloride [Moles/Vol] 115 mmol/L High 98-107 [facility] Comment on above: Performed By: #### C MPX, CDP #### [facility] [address] [place], [place] 8021483 Floor Press Operator: Khadar Tang MD CO2 [Moles/Vol] 17 mmol/L Low 20-31 [facility] Comment on above: Performed By: #### C MPX, CDP #### [facility] [address] [place], [place] 8030683 Floor Press Operator: Khadar Tang MD Creatinine [Mass/Vol] 1.55 mg/dL High 0.70-1.20 [facility] Comment on above: Performed By: #### C MPX, CDP #### [facility] [address] [place] [address] Floor Press Operator: Khadar Tang MD GFR/1.73 sq M.predicted among non-blacks MDRD (S/P/Bld) [Vol rate/Area] 51 mL/min/{1.73_m2} Low >60 [facility] Comment on above: Result Comment: These [...] #### C MPX, CDP #### [facility] [address] [place] [address] [place] [address] Floor Press Operator: Khadar Tang MD Glucose [Mass/Vol] 119 mg/dL High 70-99 [facility] Comment on above: Performed By: #### C MPX, CDP #### [address] [place], [place] [id number] Floor Press Operator: Khadar Tang MD Potassium [Moles/Vol] 5.4 mmol/L High 3.7-5.3 [facility] Comment on above: Performed By: #### C MPX, CDP #### [address] [place], [place] [phone] Floor Press Operator: Khadar Tang MD Protein [Mass/Vol] 7.1 g/dL Normal 6.4-8.3 [facility] Comment on above: Performed By: #### C MPX, CDP #### [address] [place], [place] 0827083 Floor Press Operator: Khadar Tang MD Sodium [Moles/Vol] 140 mmol/L Normal 135-144 [facility] Comment on above: Performed By: #### C MPX, CDP #### [facility] [address] [place] [address] [place] [address] Floor Press Operator: Khadar Tnag MD Urea nitrogen [Mass/Vol] 38 mg/dL High 8-23 [facility] Comment on above: Performed By: #### C MPX, CDP #### [address] [place] [address] Floor Press Operator: Khadar Tang MD Comprehensive Metabolic Pane l w/ Reflex to MGon 06-23-2022 Albumin [Mass/Vol] 2.9 g/dL Low 3.5 - 5.2 g/dL [facility] Albumin/Globulin [Mass ratio] 0.7 {ratio} Low 1.0 - 2.5 [facility] ALP [Catalytic activity/Vol] 89 U/L 40 - 129 U/L [facility] ALT [Catalytic activity/Vol] 11 U/L 5 - 41 U/L [facility] Anion gap [Moles/Vol] 8 mmol/L Low 9 - 17 mmol/L [facility] AST [Catalytic activity/Vol] 12 U/L NINF - 40 U/L [facility] Bilirubin [Mass/Vol] 0.2 mg/dL Low 0.3 - 1 .2 mg/dL [facility] Calcium [Mass/Vol] 9.0 mg/dL 8.6 - 10. 4 mg/dL [facility] Chloride [Moles/Vol] 115 mmol/L High 98 - 10 7 mmol/L [facility] CO2 [Moles/Vol] 17 mmol/L Low 20 - 31 mmol/L [facility] Creatinine [Mass/Vol] 1.55 mg/dL High 0.70 - 1.20 mg/dL [facility] GFR/1.73 sq M.predicted MDRD (S/P/Bld) [Vol rate/Area] 51 mL/min/{1.73_m2} Low - PINF [facility] Comment on above: These results are [...] 119 mg/dL High 70 - 99 mg/dL [facility] Interpretation and review of laboratory results Abnormal [facility] Potassium [Moles/Vol] 5.4 mmol/L High 3.7 - 5.3 mmol/L [employer] Protein [Mass/Vol] 7.1 g/dL 6.4 - 8.3 g/dL [employer] Sodium [Moles/Vol] 140 mmol/L 135 - 144 mmol/L [employer] Urea nitrogen [Mass/Vol] 38 mg/dL High 8 - 23 mg/dL [employer] Urea nitrogen/Creatinine (Bld) [Mass ratio] 25 High 9 - 20 [employer] EKG 12 LeadOrdered By: Michelle Tellez hmad on 06-23-2022 Atrial Rate 60 BPM [employer] Work Phone: P Sodus 55 degrees [employer] Work Phone: P-R Interval 182 ms [employer] Work Phone: Q-T Interval 388 ms [employer] Work Phone: QRS Duration 88 ms [employer] Work Phone: QTc Calculation (Bazett) 388 ms [employer] Work Phone: R Sodus 15 degrees [employer] Work Phone: T Sodus 40 degrees [employer] Work Phone: Ventricular Rate 60 BPM [employer] Work Phone: [employer] Work Phone: EKG 12 Leadon 06-23-2022 Poor [...] Noe MD ([id number]) on 06/23/2022 3:18:16 PM [facility] RADIOLOGY Michelle Noe MD - 06/23/2022 Poor data quality, interpretation may be adversely affected Normal sinus rhythm Normal ECG When compared with ECG of 22-JUN-2022 13:14, (unconfirmed) Borderline criteria for Anterolateral infarct are no longer Present Criteria for Inferior infarct are no longer Present T wave inversion no longer evident in Inferior leads Confirmed by Michelle Noe MD ([id number]) on 06/23/2022 3:18:16 PM [facility] Work Phone: EKG Rhythm Stripon [address] [facility] Glucose, Whole Bloodon 06-23 Glucose [Mass/Vol] 230 mg/dL High 74 - 100 mg/dL [facility] Interpretation and review of laboratory results Abnormal [facility] Urinalysison 06-23-2022 Bilirubin Urine Negative NEGATIVE [facility] Color, UA Yellow Yellow [facility] Glucose Auto test strip (U) [Mass/Vol] Negative NEGATIVE [facility] Ketones (U) [Mass/Vol] Negative NEGATIVE [facility] Leukocyte esterase Auto test strip Ql (U) Negative NEGATIVE [facility] Nitrite Auto test strip Ql (U) Negative NEGATIVE [facility] Protein (U) [Mass/Vol] 6.0 mg/dL 5.0 - 9.0 [facility] Protein (U) [Mass/Vol] Negative NEGATIVE [facility] Specific [place], UA 1.020 1.010 - 1.020 [facility] Turbidity UA Clear Clear [facility] Urine Hgb Negative NEGATIVE [facility] Urobilinogen, Urine Normal Normal [facility] Urinalysis, Routineon 2022 Bilirubin, SemiQt,Ur Negative Normal NEG [facility] Comment on above: Performed By: #### U A #### [facility] [address] [place] [address] Floor Press Operator: Khadar Tang MD Blood, Urine Negative Normal NEG [facility] Comment on above: Performed By: #### U A #### [facility] [address] [place] [address] [address] [place], [place] [phone] Floor Press Operator: Khadar Tang MD Clarity (U) Clear Normal CLEAR [facility] Comment on above: Performed By: #### U A #### [facility] [address] [place] [address] Dr. [place], [place] [phone] Floor Press Operator: Khadar Tang MD Color (U) Yellow Normal YEL [facility] Comment on above: Performed By: #### U A #### [facility] [address] [place] [address] Dr. [place], [place] [phone] Floor Press Operator: Khadar Tang MD Glucose Ql (U) Negative Normal NEG [facility] Comment on above: Performed By: #### U A #### [facility] [address] [place] [address] Dr[address] [place], [place] [id number] Floor Press Operator: Khadar Tang MD Ketones Ql (U) Negative Normal NEG [facility] in Hospital Comment on above: Performed By: #### U A #### [facility] [address] [place] [address] Dr. [place], [place] [phone] Floor Press Operator: Khadar Tang MD Leukocyte esterase Test strip Ql (U) Negative Normal NEG [facility] Comment on above: Performed By: #### U A #### [facility] [address] [place] [address] Dr. [place], [place] [phone] Floor Press Operator: Khadar Tang MD Nitrite,Ur Negative Normal NEG [facility] Comment on above: Performed By: #### U A #### [facility] [address] [place] [address] Dr. [place], [place] [id number] Floor Press Operator: Khadar Tang MD PH,Ur 6.0 Normal 5.0-9.0 [facility] Comment on above: Performed By: #### U A #### [facility] [address] [place] [address] Dr[address] [place], [place] [phone] Floor Press Operator: Khadar Tang MD Protein Ql (U) Negative Normal NEG [facility] Comment on above: Performed By: #### U A #### [facility] [address] [place] [address] Floor Press Operator: Khadar Tang MD Spec. [place],Ur 1.020 Normal 1.010-1.02 0 [facility] Comment on above: Performed By: #### U A #### [facility] [address] [place] [address] Floor Press Operator: Khadar Tang MD Urobilinogen,Ur Normal Normal NORM [facility] Comment on above: Performed By: #### U A #### [facility] [address] [place] [address] Floor Press Operator: Khadar Tang MD XR ANKLE RIGHT [...] Derrick Squires MD 06/23/22 Final result Normal [facility] 1. Nonspecific diffu se subcutaneous edema. [...] lesion is noted. Calcaneal spurring appears unchanged. [facility] Derrick Herrera MD - 06/23/2022 EXAMINATION: THREE [...] no subcutaneous air or evidence of osteomyelitis. [employer] Phone: Radiology Study observation (narrative) [employer] Phone: XR ANKLE RIGHT (MIN 3 VIEWS) Ordered By: Derrick [place]ires on 06-23-2022 [employer] Phone: Basic Metabolic Panelon 05-28 Anion gap [Moles/Vol] 9 mmol/L 9 - 17 mmol/L [facility] Calcium [Mass/Vol] 9.5 mg/dL 8.6 - 10. 4 mg/dL [facility] Chloride [Moles/Vol] 112 mmol/L High 98 - 10 7 mmol/L [facility] CO2 [Moles/Vol] 17 mmol/L Low 20 - 31 mmol/L [facility] Creatinine [Mass/Vol] 2 mg/dL High 0.70 - 1.20 mg/dL [facility] GFR/1.73 sq M.predicted MDRD (S/P/Bld) [Vol rate/Area] 38 mL/min/{1.73_m2} Low - PINF [facility] Comment on above: These results are [...] mg/dL High 70 - 99 mg/dL [facility] Interpretation and review of laboratory results Abnormal [facility] Potassium [Moles/Vol] 6.1 mmol/L Critically high 3.7 - 5.3 mmol/L [facility] Sodium [Moles/Vol] 138 mmol/L 135 - 144 mmol/L [facility] Urea nitrogen [Mass/Vol] 45 mg/dL High 8 - 23 mg/dL [facility] Urea nitrogen/Creatinine (Bld) [Mass ratio] 23 High 9 - 20 [facility] Basic Metabolic Profon 06-22 Potassium [Moles/Vol] 6.1 mmol/L Critically high 3.7-5.3 [facility] Comment on above: Performed By: #### T CINDYI #### [facility] [address] [place] [address] Floor Press Operator: Khadar Tang MD Anion gap [Moles/Vol] 9 mmol/L Normal 9-17 [facility] Comment on above: Performed By: #### T CINDYI #### [facility] [address] [place] [address] Floor Press Operator: Khadar Tang MD BUN/CRE Ratio 23 High 9-20 [facility] Comment on above: Performed By: #### T CINDYI #### [facility] [address] [place], [place] [address] Floor Press Operator: Khadar Tang MD Calcium [Mass/Vol] 9.5 mg/dL Normal 8.6-10.4 [facility] Comment on above: Performed By: #### T ROPI #### [facility] [address] [place], [place] [id number] Floor Press Operator: Khadar Tang MD Chloride [Moles/Vol] 112 mmol/L High 98-107 [facility] Comment on above: Performed By: #### T ROPI #### [facility] [address] [place], [place] [id number] Floor Press Operator: Khadar Tang MD CO2 [Moles/Vol] 17 mmol/L Low 20-31 [facility] Comment on above: Performed By: #### T ROPI #### [facility] [address] [place], [place] [id number] Floor Press Operator: Khadar Tang MD Creatinine [Mass/Vol] 2.00 mg/dL High 0.70-1.20 [facility] Comment on above: Performed By: #### T ROPI #### [address] [place] [address] Floor Press Operator: Khadar Tang MD GFR/1.73 sq M.predicted among non-blacks MDRD (S/P/Bld) [Vol rate/Area] 38 mL/min/{1.73_m2} Low >60 [facility] Comment on above: Result Comment: These [...] By: #### T ROPI #### [facility] [address] [place], [place] [id number] Floor Press Operator: Khadar Tang MD Glucose [Mass/Vol] 137 mg/dL High 70-99 [facility] Comment on above: Performed By: #### T ROPI #### [facility] [address] [place], [place] 858[address]83 Floor Press Operator: Khadar Tang MD Sodium [Moles/Vol] 138 mmol/L Normal 135-144 [facility] Comment on above: Performed By: #### T ROPI #### [facility] [address] [place], [place] [id number] Floor Press Operator: Khadar Tang MD Urea nitrogen [Mass/Vol] 45 mg/dL High 8-23 [facility] Comment on above: Performed By: #### T ROPI #### [facility] [address] [place], [place] [id number] Floor Press Operator: Khadar Tang MD CBC with Auto Differentialon 06-22-2022 Absolute Eos # 0.86 High [facility] Absolute Immature Granulocyte 0.09 [facility] Absolute Lymph # 1.97 [facility] Absolute Rice # 0.88 [facility] Basophils (Bld) [#/Vol] 0.05 10*3/uL [facility] Basophils/100 WBC (Bld) 0 % 0 - 2 % [facility] Eosinophils/100 WBC (Bld) 7 % High 1 - 4 % [facility] Hematocrit (Bld) [Volume fraction] 27.6 % Low 40.7 - 50.3 % [facility] Hemoglobin (Bld) [Mass/Vol] 8.3 g/dL Low 13.0 - 17.0 g/dL [facility] Immature granulocytes/100 WBC (Bld) 1 % High 0 [facility] Interpretation and review of laboratory results Abnormal [facility] Lymphocytes/100 WBC (Bld) 15 % Low 24 - 43 % [facility] MCH (RBC) [Entitic mass] 23.3 pg Low 25.2 - 33.5 pg [facility] MCHC (RBC) [Mass/Vol] 30.1 g/dL 28.4 - 34.8 g/dL [facility] MCV (RBC) [Entitic vol] 77.5 fL Low 82.6 - 102.9 fL [facility] Monocytes/100 WBC (Bld) 7 % 3 - 12 % [facility] NRBC Automated 0.0 0.0 per 100 WBC [facility] Platelet distribution width (Bld) [Ratio] 16.2 % High 11.8 - 14.4 % [facility] Platelet mean volume (Bld) [Entitic vol] 8.6 fL 8.1 - 13.5 fL [facility] Platelets (Bld) [#/Vol] 338 10*3/uL [facility] RBC (Bld) [#/Vol] 3.56 10*6/uL Low 4.21 - 5.77 m/uL [facility] Segmented neutrophils/100 WBC (Bld) 70 % High 36 - 65 % [facility] Segs Absolute 8.91 High [facility] WBC (Bld) [#/Vol] 12.8 10*3/uL High [facility] Absolute Eos # 0.84 High [facility] Absolute Immature Granulocyte 0.06 [facility] Absolute Lymph # 1.69 [facility] Absolute Rice # 0.82 [facility] Basophils (Bld) [#/Vol] 0.04 10*3/uL [facility] Basophils/100 WBC (Bld) 0 % 0 - 2 % [facility] Eosinophils/100 WBC (Bld) 7 % High 1 - 4 % [facility] Hematocrit (Bld) [Volume fraction] 27.1 % Low 40.7 - 50.3 % [facility] Hemoglobin (Bld) [Mass/Vol] 8.7 g/dL Low 13.0 - 17.0 g/dL [facility] Immature granulocytes/100 WBC (Bld) 1 % High 0 [facility] Interpretation and review of laboratory results Abnormal [facility] Lymphocytes/100 WBC (Bld) 14 % Low 24 - 43 % [facility] MCH (RBC) [Entitic mass] 25.3 pg 25.2 - 33.5 pg [facility] MCHC (RBC) [Mass/Vol] 32.1 g/dL 28.4 - 34.8 g/dL [facility] MCV (RBC) [Entitic vol] 78.8 fL Low 82.6 - 102.9 fL [facility] Monocytes/100 WBC (Bld) 7 % 3 - 12 % [facility] NRBC Automated 0.0 0.0 per 100 WBC [facility] Platelet distribution width (Bld) [Ratio] 16.4 % High 11.8 - 14.4 % [facility] Platelet mean volume (Bld) [Entitic vol] 9.4 fL 8.1 - 13.5 fL [facility] Platelets (Bld) [#/Vol] 345 10*3/uL [facility] RBC (Bld) [#/Vol] 3.44 10*6/uL Low 4.21 - 5.77 m/uL [facility] Segmented neutrophils/100 WBC (Bld) 71 % High 36 - 65 % [facility] Segs Absolute 9.06 High [facility] WBC (Bld) [#/Vol] 12.5 10*3/uL High [facility] CBC with Diffon 06-22-2022 Abs. Basophil 0.05 k/uL Normal 0.00-0.20 [facility] Comment on above: Performed By: #### C DP, MG, CP #### [facility] [address] [place] [address] Floor Press Operator: Khadar Tang MD Abs.Imm.Granulocyte 0.09 k/uL Normal 0.00-0.30 [facility] Comment on above: Performed By: #### C DP, MG, CP #### [facility] [address] [place] [address] Floor Press Operator: Khadar Tang MD Abs.Neutrophil (Seg) 8.91 k/uL High 1.50-8.10 [facility] Comment on above: Performed By: #### C DP MG, CP #### [address] [place] [place] [address] Floor Press Operator: Khadar Tang MD Basophils/100 WBC (Bld) 0 % Normal 0-2 [facility] Comment on above: Performed By: #### C DP, MG, CP #### [address] [place] [place] [address] Floor Press Operator: Khadar Tang MD Eosinophils (Bld) [#/Vol] 0.86 10*3/uL High 0.00-0.44 [facility] Comment on above: Performed By: #### C DP MG, CP #### [address] [place], [place] [address] Floor Press Operator: Khadar Tang MD Eosinophils/100 WBC (Bld) 7 % High 1-4 [facility] Comment on above: Performed By: #### C DP MG, CP #### [address] [place], [place] [address] Floor Press Operator: Khadar Tang MD Erythrocyte distribution width (RBC) [Ratio] 16.2 % High 11.8-14.4 [facility] Comment on above: Performed By: #### C DP, MG, CP #### [address] [place], [place] [address] Floor Press Operator: Khadar Tang MD Hematocrit (Bld) [Volume fraction] 27.6 % Low 40.7-50.3 [facility] Comment on above: Performed By: #### C DP, MG, CP #### [address] [place], [facility] Floor Press Operator: Khadar Tang MD Hemoglobin (Bld) [Mass/Vol] 8.3 g/dL Low 13.0-17.0 [facility] Comment on above: Performed By: #### C DP, MG, CP #### [address] [place], [facility] Floor Press Operator: Khadar Tang MD Immature granulocytes/100 WBC (Bld) 1 % High 0 [facility] Comment on above: Performed By: #### C DP, MG, CP #### [address] [place], [place] [address] Floor Press Operator: Khadar Tang MD Lymphocytes (Bld) [#/Vol] 1.97 10*3/uL Normal 1.10-3.70 [facility] Comment on above: Performed By: #### C DP, MG, CP #### [address] [place] [phone] Floor Press Operator: Khadar Tang MD Lymphocytes/100 WBC (Bld) 15 % Low 24-43 [facility] Comment on above: Performed By: #### C DP, MG, CP #### [address] [place] [place] [address] Floor Press Operator: Khadar Tang MD MCH (RBC) [Entitic mass] 23.3 pg Low 25.2-33.5 [facility] Comment on above: Performed By: #### C DP, MG, CP #### [address] [place], [facility] Floor Press Operator: Khadar Tang MD MCHC (RBC) [Mass/Vol] 30.1 g/dL Normal 28.4-34.8 [facility] Comment on above: Performed By: #### C DP, MG, CP #### [address] [place] [address] Floor Press Operator: Khadar Tang MD MCV (RBC) [Entitic vol] 77.5 fL Low 82.6-102.9 [facility] Comment on above: Performed By: #### C DP, MG, CP #### [facility] [address] [place], [facility] Floor Press Operator: Khadar Tang MD Monocytes (Bld) [#/Vol] 0.88 10*3/uL Normal 0.10-1.20 [facility] Comment on above: Performed By: #### C DP, MG, CP #### [facility] [address] [place] [address] Dr. [place], [place] [address] Floor Press Operator: Khadar Tang MD Monocytes/100 WBC (Bld) 7 % Normal 3-12 [facility] Comment on above: Performed By: #### C DP, MG, CP #### [address] [place], [place] [address] Floor Press Operator: Khadar Tang MD Neutrophil (Seg) 70 % High 36-65 [facility] Comment on above: Performed By: #### C DP, MG, CP #### [address] [place], [place] [address] Floor Press Operator: Khadar Tang MD NRBC Automated 0.0 per 100 WBC Normal 0.0 [facility] Comment on above: Performed By: #### C DP, MG, CP #### [address] [place], [place] [address] Floor Press Operator: Khadar Tang MD Platelet mean volume (Bld) [Entitic vol] 8.6 fL Normal 8.1-13.5 [facility] Comment on above: Performed By: #### C DP, MG, CP #### [address] [place], [facility] Floor Press Operator: Khadar Tang MD Platelets (Bld) [#/Vol] 338 10*3/uL Normal 138-453 [facility] Comment on above: Performed By: #### C DP, MG, CP #### [facility] [address] [place] [address] Floor Press Operator: Khadar Tang MD RBC (Bld) [#/Vol] 3.56 10*6/uL Low 4.21-5.77 [facility] Comment on above: Performed By: #### C ZANDER MG, CP #### [facility] [address] [place], [facility] Floor Press Operator: Khadar Tang MD WBC (Bld) [#/Vol] 12.8 10*3/uL High 3.5-11.3 [facility] Comment on above: Performed By: #### C MG ZANDER, CP #### [address] [place], [facility] Floor Press Operator: Khadar Tang MD Abs. Basophil 0.04 k/uL Normal 0.00-0.20 [facility] Comment on above: Performed By: #### T ROPI #### [address] [place], [place] [address] Floor Press Operator: Khadar Tang MD Abs.Imm.Granulocyte 0.06 k/uL Normal 0.00-0.30 [facility] Comment on above: Performed By: #### T ROPI #### [address] [place], [facility] Floor Press Operator: Khadar Tang MD Abs.Neutrophil (Seg) 9.06 k/uL High 1.50-8.10 [facility] Comment on above: Performed By: #### T ROPI #### [address] [place], [facility] Floor Press Operator: Khadar Tang MD Basophils/100 WBC (Bld) 0 % Normal 0-2 [facility] Comment on above: Performed By: #### T ROPI #### [facility] [address] [place] [address] Dr. [place], [place] [address] Floor Press Operator: Khadar Tang MD Eosinophils (Bld) [#/Vol] 0.84 10*3/uL High 0.00-0.44 [facility] Comment on above: Performed By: #### T ROPI #### [address] [place], [place] [id number] Floor Press Operator: Khadar Tang MD Eosinophils/100 WBC (Bld) 7 % High 1-4 [facility] Comment on above: Performed By: #### T ROPI #### [address] [place] [address] Floor Press Operator: Khadar Tang MD Erythrocyte distribution width (RBC) [Ratio] 16.4 % High 11.8-14.4 [facility] Comment on above: Performed By: #### T ROPI #### [address] [place], [facility] Floor Press Operator: Khadar Tang MD Hematocrit (Bld) [Volume fraction] 27.1 % Low 40.7-50.3 [facility] Comment on above: Performed By: #### T ROPI #### [address] [place], [place] [phone] Floor Press Operator: Khadar Tang MD Hemoglobin (Bld) [Mass/Vol] 8.7 g/dL Low 13.0-17.0 [facility] Comment on above: Performed By: #### T ROPI #### [address] [place], [place] 923[address]83 Floor Press Operator: Khadar Tang MD Immature granulocytes/100 WBC (Bld) 1 % High 0 [facility] Comment on above: Performed By: #### T ROPI #### [address] [place] [address] Floor Press Operator: Khadar Tang MD Lymphocytes (Bld) [#/Vol] 1.69 10*3/uL Normal 1.10-3.70 [facility] Comment on above: Performed By: #### T ROPI #### [facility] [address] [place], [place] [address] Floor Press Operator: Khadar Tang MD Lymphocytes/100 WBC (Bld) 14 % Low 24-43 [facility] Comment on above: Performed By: #### T ROPI #### [facility] [address] [place], [place] [address] Floor Press Operator: Khadar Tang MD MCH (RBC) [Entitic mass] 25.3 pg Normal 25.2-33.5 [facility] Comment on above: Performed By: #### T ROPI #### [address] [place] [place] [address] Floor Press Operator: Khadar Tang MD MCHC (RBC) [Mass/Vol] 32.1 g/dL Normal 28.4-34.8 [facility] Comment on above: Performed By: #### T ROPI #### [address] [place], [place] [address] Floor Press Operator: Khadar Tang MD MCV (RBC) [Entitic vol] 78.8 fL Low 82.6-102.9 [facility] Comment on above: Performed By: #### T ROPI #### [address] [place], [place] [address] Floor Press Operator: Khadar Tang MD Monocytes (Bld) [#/Vol] 0.82 10*3/uL Normal 0.10-1.20 [facility] Comment on above: Performed By: #### T ROPI #### [address] [place], [facility] Floor Press Operator: Khadar Tang MD Monocytes/100 WBC (Bld) 7 % Normal 3-12 [facility] Comment on above: Performed By: #### T ROPI #### [facility] [address] [place] [address] Dr. [place], [place] 1069083 Floor Press Operator: Khadar Tang MD Neutrophil (Seg) 71 % High 36-65 [facility] Comment on above: Performed By: #### T ROPI #### [facility] [address] [place], [place] 035[address]83 Floor Press Operator: Khadar Tang MD NRBC Automated 0.0 per 100 WBC Normal 0.0 [facility] Comment on above: Performed By: #### T ROPI #### [facility] [address] [place], [place] [phone] Floor Press Operator: Khadar Tang MD Platelet mean volume (Bld) [Entitic vol] 9.4 fL Normal 8.1-13.5 [facility] Comment on above: Performed By: #### T ROPI #### [facility] [address] [place], [place] 056[address]83 Floor Press Operator: Khadar Tang MD Platelets (Bld) [#/Vol] 345 10*3/uL Normal 138-453 [facility] Comment on above: Performed By: #### T ROPI #### [facility] [address] [place], [place] 8[address]83 Floor Press Operator: Khadar Tang MD RBC (Bld) [#/Vol] 3.44 10*6/uL Low 4.21-5.77 [facility] Comment on above: Performed By: #### T ROPI #### [facility] [address] [place], [place] [phone] Floor Press Operator: Khadar Tang MD WBC (Bld) [#/Vol] 12.5 10*3/uL High 3.5-11.3 [facility] Comment on above: Performed By: #### T ROPI #### [facility] [address] [place] [address] Floor Press Operator: Khadar Tang MD CMPon 06-22-2022 Albumin [Mass/Vol] 3.2 g/dL Low 3.5 - 5.2 g/dL [facility] Albumin/Globulin [Mass ratio] 0.7 {ratio} Low 1.0 - 2.5 [facility] ALP [Catalytic activity/Vol] 101 U/L 40 - 129 U/L [facility] ALT [Catalytic activity/Vol] 8 U/L 5 - 41 U/L [facility] Anion gap [Moles/Vol] 11 mmol/L 9 - 17 mmol/L [facility] AST [Catalytic activity/Vol] 13 U/L NINF - 40 U/L [facility] Bilirubin [Mass/Vol] mg/dL Low 0.3 - 1 .2 mg/dL [facility] Calcium [Mass/Vol] 9.1 mg/dL 8.6 - 10. 4 mg/dL [facility] Chloride [Moles/Vol] 110 mmol/L High 98 - 10 7 mmol/L [facility] CO2 [Moles/Vol] 16 mmol/L Low 20 - 31 mmol/L [facility] Creatinine [Mass/Vol] 1.93 mg/dL High 0.70 - 1.20 mg/dL [facility] GFR/1.73 sq M.predicted MDRD (S/P/Bld) [Vol rate/Area] 39 mL/min/{1.73_m2} Low - PINF [facility] Comment on above: These results are [...] mg/dL High 70 - 99 mg/dL [facility] Interpretation and review of laboratory results Abnormal [facility] Potassium [Moles/Vol] 6.3 mmol/L Critically high 3.7 - 5.3 mmol/L [facility] Protein [Mass/Vol] 8.1 g/dL 6.4 - 8.3 g/dL [facility] Sodium [Moles/Vol] 137 mmol/L 135 - 144 mmol/L [facility] Urea nitrogen [Mass/Vol] 49 mg/dL High 8 - 23 mg/dL [facility] Urea nitrogen/Creatinine (Bld) [Mass ratio] 25 High 9 - 20 [facility] Comp Metabolic Profon 2022 Bilirubin [Mass/Vol] mg/dL Low 0.3-1.2 [facility] Comment on above: Performed By: #### C DP, MG, CP #### [facility] [address] [place] [address] Floor Press Operator: Khadar Tang MD Potassium [Moles/Vol] 6.3 mmol/L Critically high 3.7-5.3 [facility] Comment on above: Performed By: #### C DP, MG, CP #### [facility] [address] [place], [place] [address]83 Floor Press Operator: Khadar Tang MD Albumin [Mass/Vol] 3.2 g/dL Low 3.5-5.2 [facility] Comment on above: Performed By: #### C DP, MG, CP #### [facility] [address] [place], [place] 100[address]83 Floor Press Operator: Khadar Tang MD Albumin/Glob Ratio 0.7 Low 1.0-2.5 [facility] Comment on above: Performed By: #### C DP, MG, CP #### [facility] [address] [place], [place] 1500883 Floor Press Operator: Khadar Tang MD Alkaline Phos 101 U/L Normal 40-129 [facility] Comment on above: Performed By: #### C DP, MG, CP #### [facility] [address] [place] [address] Floor Press Operator: Khadar aTng MD ALT [Catalytic activity/Vol] 8 U/L Normal 5-41 [facility] Comment on above: Performed By: #### C DP, MG, CP #### [facility] [address] [place], [place] 1584183 Floor Press Operator: Khadar Tang MD Anion gap [Moles/Vol] 11 mmol/L Normal 9-17 [facility] Comment on above: Performed By: #### C DP, MG, CP #### [facility] [address] [place], [place] [address] Floor Press Operator: Khadar Tang MD AST [Catalytic activity/Vol] 13 U/L Normal <40 [facility] Comment on above: Performed By: #### C DP, MG, CP #### [facility] [address] [place], [place] 3816383 Floor Press Operator: Khadar Tang MD BUN/CRE Ratio 25 High 9-20 [facility] Comment on above: Performed By: #### C DP, MG, CP #### [facility] [address] [place] [address] [address] [place], [place] [phone] Floor Press Operator: Khadar Tang MD Calcium [Mass/Vol] 9.1 mg/dL Normal 8.6-10.4 [facility] Comment on above: Performed By: #### C DP, MG, CP #### [facility] [address] [place] [address] [address]. [place], [place] 898[address] Floor Press Operator: Khadar Tang MD Chloride [Moles/Vol] 110 mmol/L High 98-107 [facility] Comment on above: Performed By: #### C DP, MG, CP #### [facility] [address] [place], [place] [id number] Floor Press Operator: Khadar Tang MD CO2 [Moles/Vol] 16 mmol/L Low 20-31 [facility] Comment on above: Performed By: #### C DP, MG, CP #### [facility] [address] [place] [address] Floor Press Operator: Khadar Tang MD Creatinine [Mass/Vol] 1.93 mg/dL High 0.70-1.20 [facility] Comment on above: Performed By: #### C DP, MG, CP #### [facility] [address] [place] [address] Floor Press Operator: Khadar Tang MD GFR/1.73 sq M.predicted among non-blacks MDRD (S/P/Bld) [Vol rate/Area] 39 mL/min/{1.73_m2} Low >60 [facility] Comment on above: Result Comment: These [...] C DP, MG, CP #### [facility] [address] [place] [address] [place] [address] Floor Press Operator: Khadar Tang MD Glucose [Mass/Vol] 148 mg/dL High 70-99 [facility] Comment on above: Performed By: #### C DP, MG, CP #### [address] [place] [address] Floor Press Operator: Khadar Tang MD Protein [Mass/Vol] 8.1 g/dL Normal 6.4-8.3 [facility] Comment on above: Performed By: #### C DP, MG, CP #### [address] [place] [address] Floor Press Operator: Khadar Tang MD Sodium [Moles/Vol] 137 mmol/L Normal 135-144 [facility] Comment on above: Performed By: #### C DP, MG, CP #### [facility] [address] [place] [address] [place] [address] Floor Press Operator: Khadar Tang MD Urea nitrogen [Mass/Vol] 49 mg/dL High 8- [facility] Comment on above: Performed By: #### C DP, MG, CP #### [facility] [address] [place], [place] [address] Floor Press Operator: Khadar Tang MD EKG 12 LeadOrdered By: Michelle de la rosa on 06-22-2022 Atrial Rate 58 BPM [employer] Work Phone: P Sodus 66 degrees [employer] Work Phone: P-R Interval 148 ms [employer] Work Phone: Q-T Interval 394 ms [employer] Work Phone: QRS Duration 94 ms [employer] Work Phone: QTc Calculation (Bazett) 386 ms [employer] Work Phone: R Sodus 64 degrees [employer] Work Phone: T Sodus -8 degrees [employer] Work Phone: Ventricular Rate 58 BPM [employer] Work Phone: [employer] Work Phone: EKG 12 Leadon 06-22-2022 Sinus [...] Noe MD ([id number]) on 06/22/2022 10:09:31 PM [facility] Michelle Noe MD - 06/22/2022 Sinus bradycardia Inferior infarct , age undetermined Possible Anterolateral infarct , age undetermined Abnormal ECG When compared with ECG of 24-APR-2015 18:25, Vent. rate has decreased BY 39 BPM Borderline criteria for Anterolateral infarct are now Present T wave inversion now evident in Inferior leads QT has shortened Confirmed by Michelle Noe MD ([id number]) on 06/22/2022 10:09:31 PM [facility] Work Phone: Magnesiumon 06-22-2022 Magnesium [Mass/Vol] 2.0 mg/dL Normal 1.6-2.6 [facility] Comment on above: Performed By: #### C DP, MG, CP #### [facility] [address] [place] [address] Floor Press Operator: Khadar Tang MD Magnesium [Mass/Vol] 2.0 mg/dL 1.6 - 2 .6 mg/dL [facility] CT PELVIS WO CONon 2 CT [...] by: JESUSITA PAPPAS Date: 2022-03-14 09:50 Normal [facility] GLYCOHEMOGLOBIN A1Con 2021 ADA RECOMMENDATION ADA THERAPEUTIC TARG ET 6.0 - 7.0 ACTION SUGGESTED > 7.0 Normal [facility] Comment on above: Performed By: #### A 1C #### [facility] [address] [address] [address] Juan Smith Glucose [Mass/Vol] 180 mg/dL Normal [facility] Comment on above: Performed By: #### A 1C #### [facility] [address] [address] [address] Juan Smith HbA1c (Bld) [Mass fraction] 7.9 % Critically high <=6.0 [facility] Comment on above: Performed By: #### A 1C #### [facility] [address] [address] [address] Juan Smith Cult,Aerobe/Anaerobeon 04-15 Neutrophils Specimen Description .TISSUE RIGHT MEDIAL HEEL POST IRRIGATIONSpecial Requests NOT REPORTEDDirect Exam NO NEUTROPHILS SEEN NO BACTERIA SEEN Culture METHICILLIN RESISTANT STAPHYLOCOCCUS AUREUS SCANT GROWTH For susceptibility, refer to previous culture. STREPTOCOCCI, BETA HEMOLYTIC GROUP C SCANT GROWTH DIPHTHEROIDS SCANT GROWTH NO ANAEROBIC ORGANISMS ISOLATED AT 5 DAYS Report Status FINAL 04/15/2017 Normal [facility] Comment on above: Performed By: #### A ANC ####[id number] Neutrophils Specimen Description .TISSUE RIGHT ANKLE PRE IRRIGATIONSpecial Requests NOT REPORTEDDirect Exam NO NEUTROPHILS SEEN RARE GRAM POSITIVE COCCI IN PAIRS Culture METHICILLIN RESISTANT STAPHYLOCOCCUS AUREUS LIGHT GROWTH For susceptibility, refer to previous culture. STREPTOCOCCI, BETA HEMOLYTIC GROUP C SCANT GROWTH NO ANAEROBIC ORGANISMS ISOLATED AT 5 DAYS Report Status FINAL 04/15/2017 Normal [facility] Comment on above: Performed By: #### A ANC ####[address] [address] Neutrophils Specimen Description .TISSUE RIGHT MEDIAL HEEL PRE IRRIGATIONSpecial Requests NOT REPORTEDDirect Exam NO NEUTROPHILS SEEN NO BACTERIA SEEN Culture STREPTOCOCCI, BETA HEMOLYTIC GROUP C LIGHT GROWTH METHICILLIN RESISTANT STAPHYLOCOCCUS AUREUS SCANT GROWTH For susceptibility, refer to previous culture. DIPHTHEROIDS LIGHT GROWTH NO ANAEROBIC ORGANISMS ISOLATED AT 5 DAYS Report Status FINAL 04/15/2017 [facility] Comment on above: Performed By: #### A ANC ####[address] [address] Basic Metabolic Profon 04-13 (cont.) Normal [facility] Comment on above: Result Comment: Aver age GFR for 50-59 years old: 93 mL/min/1.73sq mChronic Kidney Disease: <60 mL/min/1.73sq mKidney failure: <15 mL/min/1.73sq meGFR calculated using average adult body mass. Additional eGFR calculator available at:http://www.[employer].com/multiple_crcl_2012.htm[address] [place], [place] [address] ([phone] Performed By: #### C DP, CMPX, CRP, SED, GLYHGB ####[address] [address] Anion gap 11 mmol/L Normal - [facility] Comment on above: Performed By: #### C DP, CMPX, CRP, SED, GLYHGB ####[address] [address] Calcium 8.7 mg/dL Normal 8.6-10.4 [facility] Comment on above: Performed By: #### C DP, CMPX, CRP, SED, GLYHGB ####[address] [address] Chloride 106 mmol/L Normal 98-107 [facility] Comment on above: Performed By: #### C DP, CMPX, CRP, SED, GLYHGB ####[address] [address] CO2 22 mmol/L Normal 20-31 [facility] Comment on above: Performed By: #### C DP, CMPX, CRP, SED, GLYHGB ####[address] [address] Creatinine 1.04 mg/dL Normal 0.70-1.20 [facility] Comment on above: Performed By: #### C DP, CMPX, CRP, SED, GLYHGB ####[address] [address] eGFR (non-black) mL/min/{1.73_m2} Normal >60 [facility] Comment on above: Performed By: #### C DP, CMPX, CRP, SED, GLYHGB ####[address] [address] Glucose mass conc 174 mg/dL High 70-99 [facility] Comment on above: Performed By: #### C DP, CMPX, CRP, SED, GLYHGB ####[address] [address] Potassium molar conc 4.1 mmol/L Normal 3.7-5.3 [facility] Comment on above: Performed By: #### C DP, CMPX, CRP, SED, GLYHGB ####[address] [address] Sodium 139 mmol/L Normal 135-144 [facility] Comment on above: Performed By: #### C DP, CMPX, CRP, SED, GLYHGB ####[address] [address] Urea nitrogen 16 mg/dL Normal 6-20 [facility] Comment on above: Performed By: #### C DP, CMPX, CRP, SED, GLYHGB ####[address] [address] BUN/CRE Ratio NOT REPORTED Normal 9-20 [facility] Comment on above: Performed By: #### C DP, CMPX, CRP, SED, GLYHGB ####[address] [address] Staging: NOT REPORTED Normal [facility] Comment on above: Performed By: #### C DP, CMPX, CRP, SED, GLYHGB ####[address] [address] CBC with Diffon 04-13-2017 Abs. Basophil <0.03 Normal 0.00-0.20 [facility] Comment on above: Performed By: #### C DP, CMPX, CRP, SED, GLYHGB ####[address] [address] Abs.Neutrophil (Seg) 4.97 k/uL Normal 1.50-8.10 [facility] Comment on above: Performed By: #### C DP, CMPX, CRP, SED, GLYHGB ####[address] [address] Basophils/100 WBC Auto (Bld) 0 % Normal 0-2 [facility] Comment on above: Performed By: #### C DP, CMPX, CRP, SED, GLYHGB ####[address] [address] Eosinophils 0.24 10*3/uL Normal 0.00-0.44 [facility] Comment on above: Performed By: #### C DP, CMPX, CRP, SED, GLYHGB ####[address] [address] Eosinophils/100 leukocytes 3 % Normal 1-4 [facility] Comment on above: Performed By: #### C DP, CMPX, CRP, SED, GLYHGB ####[address] [address] Erythrocyte distribution width Auto Ratio (RBC) 14.8 % High 11.8-14.4 [facility] Comment on above: Performed By: #### C DP, CMPX, CRP, SED, GLYHGB ####[address] [address] Erythrocyte morphology ANISOCYTOSIS PRESENT Normal [facility] Comment on above: Result Comment: [id number] [place] [address] Performed By: #### C DP, CMPX, CRP, SED, GLYHGB ####[address] [address] Erythrocytes (RBC) 0.0 per 100 WBC Normal 0.0 [facility] Comment on above: Performed By: #### C DP, CMPX, CRP, SED, GLYHGB ####[address] [address] Erythrocytes (RBC) 3.42 10*6/uL Low 4.21-5.77 [facility] Comment on above: Performed By: #### C DP, CMPX, CRP, SED, GLYHGB ####[address] [address] Granulocytes/100 WBC (Bld) 0.19 k/uL Normal 0.00-0.30 [facility] Comment on above: Performed By: #### C DP, CMPX, CRP, SED, GLYHGB ####[address] [address] Hematocrit (HCT) 29.4 % Low 40.7-50.3 [facility] Comment on above: Performed By: #### C DP, CMPX, CRP, SED, GLYHGB ####[address] [address] Hemoglobin mass conc (Bld) 8.8 g/dL Low 13.0-17.0 [facility] Comment on above: Performed By: #### C DP, CMPX, CRP, SED, GLYHGB ####[address] [address] Immature granulocytes #/vol (Bld) 2 % High 0 [facility] Comment on above: Performed By: #### C DP, CMPX, CRP, SED, GLYHGB ####[address] [address] Lymphocytes 2.00 10*3/uL Normal 1.10-3.70 [facility] Comment on above: Performed By: #### C DP, CMPX, CRP, SED, GLYHGB ####[address] [address] Lymphocytes/100 leukocytes 25 % Normal 24-43 [facility] Comment on above: Performed By: #### C DP, CMPX, CRP, SED, GLYHGB ####[address] [address] MCH 25.7 pg Normal 25.2-33.5 [facility] Comment on above: Performed By: #### C DP, CMPX, CRP, SED, GLYHGB ####[address] [address] MCHC mass conc (RBC) 29.9 g/dL Normal 28.4-34.8 [facility] Comment on above: Performed By: #### C DP, CMPX, CRP, SED, GLYHGB ####[address] [address] MCV 86.0 fL Normal 82.6-102.9 [facility] Comment on above: Performed By: #### C DP, CMPX, CRP, SED, GLYHGB ####[address] [address] Monocytes 0.53 10*3/uL Normal 0.10-1.20 [facility] Comment on above: Performed By: #### C DP, CMPX, CRP, SED, GLYHGB ####[address] [address] Monocytes/100 leukocytes 7 % Normal 3-12 [facility] Comment on above: Performed By: #### C DP, CMPX, CRP, SED, GLYHGB ####[address] [address] Neutrophil (Seg) 63 % Normal 36-65 [facility] Comment on above: Performed By: #### C DP, CMPX, CRP, SED, GLYHGB ####[address] [address] Platelet mean volume (PMV) 9.9 fL Normal 8.1-13.5 [facility] Comment on above: Performed By: #### C DP, CMPX, CRP, SED, GLYHGB ####[address] [address] Platelets 257 10*3/uL Normal 138-453 [facility] Comment on above: Performed By: #### C DP, CMPX, CRP, SED, GLYHGB ####[address] [address] WBC (Leukocytes) 8.0 10*3/uL Normal 3.5-11.3 [facility] Comment on above: Performed By: #### C DP, CMPX, CRP, SED, GLYHGB ####[facility] [id number] [place] [address] Auto Diff Performed NOT REPORTED Normal [facility] Comment on above: Performed By: #### C DP, CMPX, CRP, SED, GLYHGB ####[facility] [address] [place] [address] Platelets NOT REPORTED Normal [facility] Comment on above: Performed By: #### C DP, CMPX, CRP, SED, GLYHGB ####[facility] [address] [place] [address] WBC Morphology NOT REPORTED Normal [facility] Comment on above: Performed By: #### C DP, CMPX, CRP, SED, GLYHGB ####[facility] [address] [place] [address] Discharge Summaryon 04-13-19 18 HIM IP Note OR [employer] Normal [facility] Plan of Careon 04-13-2017 HIM IP Note OR [employer] Normal [facility] HIM IP Note OR [employer] Normal [facility] Progress Noteon 04-13-2017 HIM IP Note OR [employer] Normal [facility] HIM IP Note OR [employer] Normal [facility] HIM IP Note OR [employer] Normal [facility] HIM IP Note OR [employer] Normal [facility] HIM IP Note OR [employer] Normal [facility] HIM IP Note OR [employer] Normal [facility] Basic Metabolic Profon 04-12 (cont.) Normal [facility] Comment on above: Result Comment: Aver age GFR for 50-59 years old: 93 mL/min/1.73sq mChronic Kidney Disease: <60 mL/min/1.73sq mKidney failure: <15 mL/min/1.73sq meGFR calculated using average adult body mass. Additional eGFR calculator available at:http://www.[employer]/multiple_crcl_2012.htm[address] [address] Performed By: #### C DP, CMPX, CRP, SED, GLYHGB ####[address] [address] Anion gap 8 mmol/L Low 9-17 [facility] Comment on above: Performed By: #### C DP, CMPX, CRP, SED, GLYHGB ####[address] [address] Calcium 8.8 mg/dL Normal 8.6-10.4 [facility] Comment on above: Performed By: #### C DP, CMPX, CRP, SED, GLYHGB ####[address] [address] Chloride 107 mmol/L Normal 98-107 [facility] Comment on above: Performed By: #### C DP, CMPX, CRP, SED, GLYHGB ####[address] [address] CO2 23 mmol/L Normal 20-31 [facility] Comment on above: Performed By: #### C DP, CMPX, CRP, SED, GLYHGB ####[address] [address] Creatinine 1.01 mg/dL Normal 0.70-1.20 [facility] Comment on above: Performed By: #### C DP, CMPX, CRP, SED, GLYHGB ####[address] [address] eGFR (non-black) mL/min/{1.73_m2} Normal >60 [facility] Comment on above: Performed By: #### C DP, CMPX, CRP, SED, GLYHGB ####[address] [place] [address] Glucose mass conc 172 mg/dL High 70-99 [facility] Comment on above: Performed By: #### C DP, CMPX, CRP, SED, GLYHGB ####[address] [address] Potassium molar conc 3.9 mmol/L Normal 3.7-5.3 [facility] Comment on above: Performed By: #### C DP, CMPX, CRP, SED, GLYHGB ####[address] [address] Sodium 138 mmol/L Normal 135-144 [facility] Comment on above: Performed By: #### C DP, CMPX, CRP, SED, GLYHGB ####[address] [address] Urea nitrogen 15 mg/dL Normal 6-20 [facility] Comment on above: Performed By: #### C DP, CMPX, CRP, SED, GLYHGB ####[address] [place] [address] BUN/CRE Ratio NOT REPORTED Normal 9-20 [facility] Comment on above: Performed By: #### C DP, CMPX, CRP, SED, GLYHGB ####[address] [place] [address] Staging: NOT REPORTED Normal [facility] Comment on above: Performed By: #### C DP, CMPX, CRP, SED, GLYHGB ####[address] [address] CBC with Diffon 04-12-2017 Abs. Basophil <0.03 Normal 0.00-0.20 [facility] Comment on above: Performed By: #### C DP, CMPX, CRP, SED, GLYHGB ####[address] [address] Abs.Neutrophil (Seg) 4.31 k/uL Normal 1.50-8.10 [facility] Comment on above: Performed By: #### C DP, CMPX, CRP, SED, GLYHGB ####[address] [address] Basophils/100 WBC Auto (Bld) 0 % Normal 0-2 [facility] Comment on above: Performed By: #### C DP, CMPX, CRP, SED, GLYHGB ####[address] [address] Eosinophils 0.21 10*3/uL Normal 0.00-0.44 [facility] Comment on above: Performed By: #### C DP, CMPX, CRP, SED, GLYHGB ####[address] [address] Eosinophils/100 leukocytes 3 % Normal 1-4 [facility] Comment on above: Performed By: #### C DP, CMPX, CRP, SED, GLYHGB ####[address] [address] Erythrocyte distribution width Auto Ratio (RBC) 14.7 % High 11.8-14.4 [facility] Comment on above: Performed By: #### C DP, CMPX, CRP, SED, GLYHGB ####[address] [address] Erythrocyte morphology ANISOCYTOSIS PRESENT Normal [facility] Comment on above: Result Comment: [address] [address] Performed By: #### C DP, CMPX, CRP, SED, GLYHGB ####[address] [address] Erythrocytes (RBC) 3.45 10*6/uL Low 4.21-5.77 [facility] Comment on above: Performed By: #### C DP, CMPX, CRP, SED, GLYHGB ####[address] [address] Granulocytes/100 WBC (Bld) 0.22 k/uL Normal 0.00-0.30 [facility] Comment on above: Performed By: #### C DP, CMPX, CRP, SED, GLYHGB ####[address] [address] Hematocrit (HCT) 28.9 % Low 40.7-50.3 [facility] Comment on above: Performed By: #### C DP, CMPX, CRP, SED, GLYHGB ####[address] [address] Hemoglobin mass conc (Bld) 8.9 g/dL Low 13.0-17.0 [facility] Comment on above: Performed By: #### C DP, CMPX, CRP, SED, GLYHGB ####[address] [address] Immature granulocytes #/vol (Bld) 3 % High 0 [facility] Comment on above: Performed By: #### C DP, CMPX, CRP, SED, GLYHGB ####[address] [address] Lymphocytes 1.83 10*3/uL Normal 1.10-3.70 [facility] Comment on above: Performed By: #### C DP, CMPX, CRP, SED, GLYHGB ####[address] [address] Lymphocytes/100 leukocytes 26 % Normal 24-43 [facility] Comment on above: Performed By: #### C DP, CMPX, CRP, SED, GLYHGB ####[address] [address] MCH 25.8 pg Normal 25.2-33.5 [facility] Comment on above: Performed By: #### C DP, CMPX, CRP, SED, GLYHGB ####[address] [address] MCHC mass conc (RBC) 30.8 g/dL Normal 28.4-34.8 [facility] Comment on above: Performed By: #### C DP, CMPX, CRP, SED, GLYHGB ####[address] [address] MCV 83.8 fL Normal 82.6-102.9 [facility] Comment on above: Performed By: #### C DP, CMPX, CRP, SED, GLYHGB ####[address] [address] Monocytes 0.58 10*3/uL Normal 0.10-1.20 [facility] Comment on above: Performed By: #### C DP, CMPX, CRP, SED, GLYHGB ####[address] [address] Monocytes/100 leukocytes 8 % Normal 3-12 [facility] Comment on above: Performed By: #### C DP, CMPX, CRP, SED, GLYHGB ####[address] [address] Neutrophil (Seg) 60 % Normal 36-65 [facility] Comment on above: Performed By: #### C DP, CMPX, CRP, SED, GLYHGB ####[address] [address] Platelet mean volume (PMV) 9.3 fL Normal 8.1-13.5 [facility] Comment on above: Performed By: #### C DP, CMPX, CRP, SED, GLYHGB ####[address] [address] Platelets 231 10*3/uL Normal 138-453 [facility] Comment on above: Performed By: #### C DP, CMPX, CRP, SED, GLYHGB ####[facility] [address] [address] WBC (Leukocytes) 7.2 10*3/uL Normal 3.5-11.3 [facility] Comment on above: Performed By: #### C DP, CMPX, CRP, SED, GLYHGB ####[address] [address] Auto Diff Performed NOT REPORTED Normal [facility] Comment on above: Performed By: #### C DP, CMPX, CRP, SED, GLYHGB ####[address] [address] Platelets NOT REPORTED Normal [facility] Comment on above: Performed By: #### C DP, CMPX, CRP, SED, GLYHGB ####[address] [address] WBC Morphology NOT REPORTED Normal [facility] Comment on above: Performed By: #### C DP, CMPX, CRP, SED, GLYHGB ####[address] [address] Cult,Aerobe/Anaerobeon 04-12 Neutrophils Specimen Description .TISSUE RIGHT [...] NOT REPORTEDTrimethoprim/Sulfa <=10 SUSCEPTIBLEVancomycin 1 SUSCEPTIBLE Normal [facility] Comment on above: Performed By: #### A ANC ####[address] [address] Plan of Careon 04-12-2017 HIM IP Note OR [employer] Normal [facility] HIM IP Note OR [employer] Normal [facility] HIM IP Note OR [employer] Normal [facility] HIM IP Note OR [employer] Normal [facility] HIM IP Note OR [employer] Normal [facility] Progress Noteon 04-12-2017 HIM IP Note OR [employer] Normal [facility] HIM IP Note OR [employer] Normal [facility] HIM IP Note OR [employer] Normal [facility] HIM IP Note OR [employer] Normal [facility] HIM IP Note OR [employer] Normal [facility] HIM IP Note OR [employer] Normal [facility] Basic Metabolic Profon 04-11 (cont.) Normal [facility] Comment on above: Result Comment: Aver age GFR for 50-59 years old: 93 mL/min/1.73sq mChronic Kidney Disease: <60 mL/min/1.73sq mKidney failure: <15 mL/min/1.73sq meGFR calculated using average adult body mass. Additional eGFR calculator available at:http://www.[employer]/multiple_crcl_2012.htm[facility] [address] [place] [address] ([phone] Performed By: #### C DP, CMPX, CRP, SED, GLYHGB ####[address] [place] [address] Anion gap 14 mmol/L Normal 9-17 [facility] Comment on above: Performed By: #### C DP, CMPX, CRP, SED, GLYHGB ####[address] [place] [address] Calcium 8.2 mg/dL Low 8.6-10.4 [facility] Comment on above: Performed By: #### C DP, CMPX, CRP, SED, GLYHGB ####[address] [address] Chloride 101 mmol/L Normal 98-107 [facility] Comment on above: Performed By: #### C DP, CMPX, CRP, SED, GLYHGB ####[address] [address] CO2 21 mmol/L Normal 20-31 [facility] Comment on above: Performed By: #### C DP, CMPX, CRP, SED, GLYHGB ####[address] [address] Creatinine 1.16 mg/dL Normal 0.70-1.20 [facility] Comment on above: Performed By: #### C DP, CMPX, CRP, SED, GLYHGB ####[address] [address] eGFR (non-black) mL/min/{1.73_m2} Normal >60 [facility] Comment on above: Performed By: #### C DP, CMPX, CRP, SED, GLYHGB ####[address] [address] Glucose mass conc 153 mg/dL High 70-99 [facility] Comment on above: Performed By: #### C DP, CMPX, CRP, SED, GLYHGB ####[address] [address] Potassium molar conc 4.0 mmol/L Normal 3.7-5.3 [facility] Comment on above: Performed By: #### C DP, CMPX, CRP, SED, GLYHGB ####[address] [address] Sodium 136 mmol/L Normal 135-144 [facility] Comment on above: Performed By: #### C DP, CMPX, CRP, SED, GLYHGB ####[address] [address] Urea nitrogen 18 mg/dL Normal 6-20 [facility] Comment on above: Performed By: #### C DP, CMPX, CRP, SED, GLYHGB ####[address] [address] BUN/CRE Ratio NOT REPORTED Normal -20 [facility] Comment on above: Performed By: #### C DP, CMPX, CRP, SED, GLYHGB ####[address] [address] Staging: NOT REPORTED Normal [facility] Comment on above: Performed By: #### C DP, CMPX, CRP, SED, GLYHGB ####[address] [address] C-Reactive Proteinon 018 C reactive protein (CRP) 55.5 mg/L High 0.0-5.0 [facility] Comment on above: Result Comment: [address] [address] Performed By: #### C DP, CMPX, CRP, SED, GLYHGB ####[address] [address] CBC with Diffon 04-11-2017 Abs. Basophil <0.03 Normal 0.00-0.20 [facility] Comment on above: Performed By: #### C DP, CMPX, CRP, SED, GLYHGB ####[address] [address] Abs.Neutrophil (Seg) 5.04 k/uL Normal 1.50-8.10 [facility] Comment on above: Performed By: #### C DP, CMPX, CRP, SED, GLYHGB ####[address] [address] Basophils/100 WBC Auto (Bld) 0 % Normal 0-2 [facility] Comment on above: Performed By: #### C DP, CMPX, CRP, SED, GLYHGB ####[address] [address] Eosinophils 0.24 10*3/uL Normal 0.00-0.44 [facility] Comment on above: Performed By: #### C DP, CMPX, CRP, SED, GLYHGB ####[address] [address] Eosinophils/100 leukocytes 3 % Normal 1-4 [facility] Comment on above: Performed By: #### C DP, CMPX, CRP, SED, GLYHGB ####[address] [address] Erythrocyte distribution width Auto Ratio (RBC) 14.8 % High 11.8-14.4 [facility] Comment on above: Performed By: #### C DP, CMPX, CRP, SED, GLYHGB ####[address] [address] Erythrocyte morphology ANISOCYTOSIS PRESENT Normal [facility] Comment on above: Result Comment: [address] [address] Performed By: #### C DP, CMPX, CRP, SED, GLYHGB ####[address] [address] Erythrocytes (RBC) 3.36 10*6/uL Low 4.21-5.77 [facility] Comment on above: Performed By: #### C DP, CMPX, CRP, SED, GLYHGB ####[address] [address] Granulocytes/100 WBC (Bld) 0.09 k/uL Normal 0.00-0.30 [facility] Comment on above: Performed By: #### C DP, CMPX, CRP, SED, GLYHGB ####[address] [address] Hematocrit (HCT) 28.8 % Low 40.7-50.3 [facility] Comment on above: Performed By: #### C DP, CMPX, CRP, SED, GLYHGB ####[address] [address] Hemoglobin mass conc (Bld) 8.8 g/dL Low 13.0-17.0 [facility] Comment on above: Performed By: #### C DP, CMPX, CRP, SED, GLYHGB ####[address] [address] Immature granulocytes #/vol (Bld) 1 % High 0 [facility] Comment on above: Performed By: #### C DP, CMPX, CRP, SED, GLYHGB ####[address] [address] Lymphocytes 1.73 10*3/uL Normal 1.10-3.70 [facility] Comment on above: Performed By: #### C DP, CMPX, CRP, SED, GLYHGB ####[address] [address] Lymphocytes/100 leukocytes 23 % Low 24-43 [facility] Comment on above: Performed By: #### C DP, CMPX, CRP, SED, GLYHGB ####[address] [address] MCH 26.2 pg Normal 25.2-33.5 [facility] Comment on above: Performed By: #### C DP, CMPX, CRP, SED, GLYHGB ####[address] [address] MCHC mass conc (RBC) 30.6 g/dL Normal 28.4-34.8 [facility] Comment on above: Performed By: #### C DP, CMPX, CRP, SED, GLYHGB ####[address] [address] MCV 85.7 fL Normal 82.6-102.9 [facility] Comment on above: Performed By: #### C DP, CMPX, CRP, SED, GLYHGB ####[address] [address] Monocytes 0.56 10*3/uL Normal 0.10-1.20 [facility] Comment on above: Performed By: #### C DP, CMPX, CRP, SED, GLYHGB ####[address] [address] Monocytes/100 leukocytes 7 % Normal 3-12 [facility] Comment on above: Performed By: #### C DP, CMPX, CRP, SED, GLYHGB ####[address] [address] Neutrophil (Seg) 66 % High 36-65 [facility] Comment on above: Performed By: #### C DP, CMPX, CRP, SED, GLYHGB ####[address] [address] Platelet mean volume (PMV) 9.9 fL Normal 8.1-13.5 [facility] Comment on above: Performed By: #### C DP, CMPX, CRP, SED, GLYHGB ####[address] [address] Platelets 264 10*3/uL Normal 138-453 [facility] Comment on above: Performed By: #### C DP, CMPX, CRP, SED, GLYHGB ####[address] [address] WBC (Leukocytes) 7.7 10*3/uL Normal 3.5-11.3 [facility] Comment on above: Performed By: #### C DP, CMPX, CRP, SED, GLYHGB ####[address] [address] Auto Diff Performed NOT REPORTED Normal [facility] Comment on above: Performed By: #### C DP, CMPX, CRP, SED, GLYHGB ####[address] [address] Platelets NOT REPORTED Normal [facility] Comment on above: Performed By: #### C DP, CMPX, CRP, SED, GLYHGB ####[address] [address] WBC Morphology NOT REPORTED Normal [facility] Comment on above: Performed By: #### C DP, CMPX, CRP, SED, GLYHGB ####[address] [address] Hemoglobin A1Con 04-11-2017 Glucose mass conc 315 mg/dL Normal [facility] Comment on above: Result Comment: The ADA and AACC recommend providing the estimated average glucose result to permit better patient understanding of their HBA1c result.[address] [id number] [phone] Performed By: #### C DP, CMPX, CRP, SED, GLYHGB ####[address] [place], [place] [address] Hemoglobin A1c/Hemoglobin.total mass fraction (Bld) 12.6 % High 4.0-6.0 [facility] Comment on above: Performed By: #### C DP, CMPX, CRP, SED, GLYHGB ####[address] [place], [place] [id number] Plan of Careon 04-11-2017 HIM IP Note OR Commercial Electrician Normal [facility] HIM IP Note OR Commercial Electrician Normal [facility] HIM IP Note OR [employer] Normal [facility] HIM IP Note OR [employer] Normal [facility] Progress Noteon 04-11-2017 HIM IP Note OR [employer]ian Normal [facility] HIM IP Note OR [employer]ian Normal [facility] HIM IP Note OR [employer]ian Normal [facility] HIM IP Note OR [employer] Electrician Normal [facility] Consulton 04-10-2017 HIM IP Note OR [employer] Normal [facility] Cult,Urine,Cathon 04-10-2017 Cult,Urine,Cath Specimen Description .CATHETERIZED URINE Special Requests NOT REPORTED Culture PRESUMPTIVE ID: LEO ALBICANS >[id number] CFU/ML Report Status FINAL 04/10/2017 [facility] Comment on above: Performed By: #### C DP, CMPX, CRP, SED, GLYHGB ####[facility] [place], [place] [id number] Influenza A + B, PCRon 04-10 Influenza A + B, PCR Specimen Descriptio n .NASOPHARYNGEAL SWABSpecial Requests NOT REPORTEDDirect Exam NEGATIVE: Influenza A and B RNA not detected by nucleic acid amplification. The results obtained should be interpreted in conjunction with clinical findings and other laboratory markers. The performance characterisitics of this molecular test were validated by the molecular microbiology department of [facility] [employer]. Report Status FINAL 04/10/2017 [facility] Comment on above: Performed By: #### C DP, CMPX, CRP, SED, GLYHGB ####[facility] [address] [place], [place] [id number] OPERATIVE REPORTon 8 OPERATIVE REPORT [facility] [address] [place] [address] OPERATIVE REPORTPATIENT NAME: GANGA STINSON : 1960[facility] REC NO: [id number] ROOM: [address] [place] [address] NO: [id number] ADMIT DATE: 04/09/2017PROVIDER: William Foster-JudgeDATE OF PROCEDURE: [...] for recovery. 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 The department of Infectious Disease,Internal Medicine, and specialty medicine services will provide care duringthe inpatient admission. He will return to the care of Dr. Min [place], [place], upon discharge.INDICATIONS FOR OPERATION: This is [...] He would follow up with his usual dam worker on anoutpatient basis. The departments of Internal Medicine and InfectiousDisease will guide our care in the interim. Cultures should be availablewith sensitivities in approximately 72 hours and consider dischargeplanning then.WILLIAM FOSTER-JUDGED: 04/10/2017 15:31:53 MS/V_[id number]#: [id number] Doc#: [id number]: Yakov Min [facility] Department of Infectious Disease Internal Medicine Normal [facility] Plan of Careon 04-10-2017 HIM IP Note OR Commercial Electrician Normal [facility] HIM IP Note OR Commercial Electrician Normal [facility] Progress Noteon 04-10-2017 HIM IP Note OR Commercial Electrician Normal [facility] HIM IP Note OR Commercial Electrician Normal [facility] XR ANKLE RIGHT STANDARDon XR ANKLE [...] Bakerigned by:Roberto Carlos Cavazos MD04/09/17inal result Normal [facility] C-Reactive Proteinon 018 C reactive protein (CRP) 114.3 mg/L High 0.0-5.0 [facility] Comment on above: Result Comment: [employer] [address] [place], [place] [id number] ([phone] Performed By: #### C DP, CMPX, CRP, SED, GLYHGB ####[address] [place] [address] CBC with Diffon 04-09-2017 Abs. Basophil <0.03 Normal 0.00-0.20 [facility] Comment on above: Performed By: #### C DP, CMPX, CRP, SED, GLYHGB ####[address] [address] Abs.Neutrophil (Seg) 5.95 k/uL Normal 1.50-8.10 [facility] Comment on above: Performed By: #### C DP, CMPX, CRP, SED, GLYHGB ####[address] [address] Basophils/100 WBC Auto (Bld) 0 % Normal 0-2 [facility] Comment on above: Performed By: #### C DP, CMPX, CRP, SED, GLYHGB ####[address] [address] Eosinophils 0.11 10*3/uL Normal 0.00-0.44 [facility] Comment on above: Performed By: #### C DP, CMPX, CRP, SED, GLYHGB ####[address] [address] Eosinophils/100 leukocytes 1 % Normal 1-4 [facility] Comment on above: Performed By: #### C DP, CMPX, CRP, SED, GLYHGB ####[address] [address] Erythrocyte distribution width Auto Ratio (RBC) 15.0 % High 11.8-14.4 [facility] Comment on above: Performed By: #### C DP, CMPX, CRP, SED, GLYHGB ####[address] [address] Erythrocyte morphology ANISOCYTOSIS PRESENT Normal [facility] Comment on above: Result Comment: [address] [place] [address] Performed By: #### C DP, CMPX, CRP, SED, GLYHGB ####[address] [address] Erythrocytes (RBC) 3.50 10*6/uL Low 4.21-5.77 [facility] Comment on above: Performed By: #### C DP, CMPX, CRP, SED, GLYHGB ####[place] [address] Granulocytes/100 WBC (Bld) 0.09 k/uL Normal 0.00-0.30 [facility] Comment on above: Performed By: #### C DP, CMPX, CRP, SED, GLYHGB ####[address] [address] Hematocrit (HCT) 29.9 % Low 40.7-50.3 [facility] Comment on above: Performed By: #### C DP, CMPX, CRP, SED, GLYHGB ####[address] [address] Hemoglobin mass conc (Bld) 9.0 g/dL Low 13.0-17.0 [facility] Comment on above: Performed By: #### C DP, CMPX, CRP, SED, GLYHGB ####[address] [address] Immature granulocytes #/vol (Bld) 1 % High 0 [facility] Comment on above: Performed By: #### C DP, CMPX, CRP, SED, GLYHGB ####[address] [address] Lymphocytes 1.60 10*3/uL Normal 1.10-3.70 [facility] Comment on above: Performed By: #### C DP, CMPX, CRP, SED, GLYHGB ####[address] [address] Lymphocytes/100 leukocytes 19 % Low 24-43 [facility] Comment on above: Performed By: #### C DP, CMPX, CRP, SED, GLYHGB ####[address] [address] MCH 25.7 pg Normal 25.2-33.5 [facility] Comment on above: Performed By: #### C DP, CMPX, CRP, SED, GLYHGB ####[address] [address] MCHC mass conc (RBC) 30.1 g/dL Normal 28.4-34.8 [facility] Comment on above: Performed By: #### C DP, CMPX, CRP, SED, GLYHGB ####[address] [address] MCV 85.4 fL Normal 82.6-102.9 [facility] Comment on above: Performed By: #### C DP, CMPX, CRP, SED, GLYHGB ####[address] [address] Monocytes 0.53 10*3/uL Normal 0.10-1.20 [facility] Comment on above: Performed By: #### C DP, CMPX, CRP, SED, GLYHGB ####[address] [address] Monocytes/100 leukocytes 6 % Normal 3-12 [facility] Comment on above: Performed By: #### C DP, CMPX, CRP, SED, GLYHGB ####[address] [address] Neutrophil (Seg) 73 % High 36-65 [facility] Comment on above: Performed By: #### C DP, CMPX, CRP, SED, GLYHGB ####[address] [address] Platelet mean volume (PMV) 9.6 fL Normal 8.1-13.5 [facility] Comment on above: Performed By: #### C DP, CMPX, CRP, SED, GLYHGB ####[address] [address] Platelets 224 10*3/uL Normal 138-453 [facility] Comment on above: Performed By: #### C DP, CMPX, CRP, SED, GLYHGB ####[address] [address] WBC (Leukocytes) 8.3 10*3/uL Normal 3.5-11.3 [facility] Comment on above: Performed By: #### C DP, CMPX, CRP, SED, GLYHGB ####[address] [address] Auto Diff Performed NOT REPORTED Normal [facility] Comment on above: Performed By: #### C DP, CMPX, CRP, SED, GLYHGB ####[address] [address] Platelets NOT REPORTED Normal [facility] Comment on above: Performed By: #### C DP, CMPX, CRP, SED, GLYHGB ####[address] [address] WBC Morphology NOT REPORTED Normal [facility] Comment on above: Performed By: #### C DP, CMPX, CRP, SED, GLYHGB ####[address] [address] Comp Metabolic Pr/rfx MGon 0 - (cont.) Normal [facility] Comment on above: Result Comment: Aver age GFR for 50-59 years old: 93 mL/min/1.73sq mChronic Kidney Disease: <60 mL/min/1.73sq mKidney failure: <15 mL/min/1.73sq meGFR calculated using average adult body mass. Additional eGFR calculator available at:[email or web address] [facility] [address] [place] [address] Performed By: #### C DP, CMPX, CRP, SED, GLYHGB ####[address] [address] Alanine aminotransferase (ALT) 9 U/L Normal 5-41 [facility] Comment on above: Performed By: #### C DP, CMPX, CRP, SED, GLYHGB ####[address] [address] Albumin 2.8 g/dL Low 3.5-5.2 [facility] Comment on above: Performed By: #### C DP, CMPX, CRP, SED, GLYHGB ####[facility] [place] [address] Albumin/Globulin Ratio 0.7 {ratio} Low 1.0-2.5 [facility] Comment on above: Performed By: #### C DP, CMPX, CRP, SED, GLYHGB ####[address] [address] Alkaline Phos 57 U/L Normal 40-129 [facility] Comment on above: Performed By: #### C DP, CMPX, CRP, SED, GLYHGB ####[address] [address] Anion gap 13 mmol/L Normal 9-17 [facility] Comment on above: Performed By: #### C DP, CMPX, CRP, SED, GLYHGB ####[address] [address] Aspartate aminotransferase (AST) 9 U/L Normal <40 [facility] Comment on above: Performed By: #### C DP, CMPX, CRP, SED, GLYHGB ####[address] [address] Bilirubin Ql (U) 0.26 mg/dL Low 0.3-1.2 [facility] Comment on above: Performed By: #### C DP, CMPX, CRP, SED, GLYHGB ####[address] [address] Calcium 8.4 mg/dL Low 8.6-10.4 [facility] Comment on above: Performed By: #### C DP, CMPX, CRP, SED, GLYHGB ####[address] [address] Chloride 99 mmol/L Normal 98-107 [facility] Comment on above: Performed By: #### C DP, CMPX, CRP, SED, GLYHGB ####[address] [address] CO2 21 mmol/L Normal 20-31 [facility] Comment on above: Performed By: #### C DP, CMPX, CRP, SED, GLYHGB ####[address] [address] Creatinine 1.13 mg/dL Normal 0.70-1.20 [facility] Comment on above: Performed By: #### C DP, CMPX, CRP, SED, GLYHGB ####[address] [address] eGFR (non-black) mL/min/{1.73_m2} Normal >60 [facility] Comment on above: Performed By: #### C DP, CMPX, CRP, SED, GLYHGB ####[address] [place] [address] Glucose mass conc 267 mg/dL High 70-99 [facility] Comment on above: Performed By: #### C DP, CMPX, CRP, SED, GLYHGB ####[address] [place] [address] Potassium molar conc 4.3 mmol/L Normal 3.7-5.3 [facility] Comment on above: Performed By: #### C DP, CMPX, CRP, SED, GLYHGB ####[address] [address] Protein 7.0 g/dL Normal 6.4-8.3 [facility] Comment on above: Performed By: #### C DP, CMPX, CRP, SED, GLYHGB ####[address] [address] Sodium 133 mmol/L Low 135-144 [facility] Comment on above: Performed By: #### C DP, CMPX, CRP, SED, GLYHGB ####[address] [address] Urea nitrogen 22 mg/dL High 6-20 [facility] Comment on above: Performed By: #### C DP, CMPX, CRP, SED, GLYHGB ####[address] [address] BUN/CRE Ratio NOT REPORTED Normal 9-20 [facility] Comment on above: Performed By: #### C DP, CMPX, CRP, SED, GLYHGB ####[address] [address] Staging: NOT REPORTED Normal [facility] Comment on above: Performed By: #### C DP, CMPX, CRP, SED, GLYHGB ####[address] [address] Consulton 04-09-2017 HIM IP Note OR Commercial Electrician Normal [facility] HIM IP Note OR Commercial Electrician Normal [facility] HIM IP Note OR Commercial Electrician Normal [facility] Flu A/B Ag Detectionon 04-09 Flu A/B Ag Detection Specimen Descriptio n .NASOPHARYNGEAL SWABSpecial Requests NOT REPORTEDDirect Exam PRESUMPTIVE NEGATIVE for Influenza A + B antigens. PCR testing to confirm this result is available upon request. Specimen will be saved in the laboratory for 7 days. Please call [phone] if PCR testing is indicated. Report Status FINAL 04/09/2017 Normal [facility] Comment on above: Performed By: #### C DP, CMPX, CRP, SED, GLYHGB ####[facility] [address] [place] [address] History and Physicalon 04-09 [facility] IP Note OR Commercial Electrician Normal [facility] MRI FOOT RIGHT W WO CONTRAST [...] suspected despite a lack of definitive precontrast F0caabixlm changes.Large ulcer overlying the lateral malleolus with underlying osteomyelitis.Interpreted by:SAMMI Tellezigned by:Jesusita Mock MD04/09/17inal result Normal [facility] Op Noteon 04-09-2017 HIM IP Note OR Commercial [employer]ian Normal [facility] Plan of Careon 04-09-2017 HIM IP Note OR Commercial Electrician Normal [facility] HIM IP Note OR Commercial Electrician Normal [facility] Progress Noteon 04-09-2017 HIM IP Note OR Commercial Electrician Normal [facility] HIM IP Note OR Commercial Electrician Normal [facility] HIM IP Note OR Commercial Electrician Normal [facility] RSV Ag Detectionon 8 RSV Ag Detection Specimen Description .NASOPHARYNGEAL SWABSpecial Requests NOT REPORTEDDirect Exam Presumptive negative for the presence of RSV antigen. PCR testing to confirm this result is available upon request. Specimen will be saved in the laboratory for 7 days. Please call [phone] if PCR testing is indicated. Report Status FINAL 04/09/2017 Normal [facility] Comment on above: Performed By: #### C DP, CMPX, CRP, SED, GLYHGB ####[address] [place] [address] Sedimentation Rateon 018 Sedimentation Rate 80 mm High 0-10 [facility] Comment on above: Result Comment: [employer] [address] [place] [address] Performed By: #### C DP, CMPX, CRP, SED, GLYHGB ####[facility]Cert[facility] Security SolutionsVhdsqbimilhb[address] [place] [address] XR FOOT RIGHT STANDARDon XR FOOT RIGHT [...] by:SAMMI Tellezigned by:Jesusita Mock MD04/09/17inal result Normal [facility] Vital Signs Date Time Vital Sign Value Performing Clinician Facility 10-02-2024 13:45-0400 Diastolic blood pressure 63 mm[Hg] Fidel Abbott MD Work Phone: [facility] 10-02-2024 13:45-0400 Heart rate 55 /min Fidel Abbott MD Work Phone: [facility] 10-02-2024 13:45-0400 Respiratory rate 16 /min Fidel Abbott MD Work Phone: [facility] 10-02-2024 13:45-0400 SaO2% (BldA) [Mass fraction] 97 % Fidel Abbtot MD Work Phone: [facility] 10-02-2024 13:45-0400 Systolic blood pressure 108 mm[Hg] Fidel Abbott MD Work Phone: [facility] 10-02-2024 13:00-0400 Inhaled oxygen flow rate 6 L/min Fidel Abbott MD Work Phone: [facility] 10-02-2024 10:58-0400 Body height 180.34 cm Fidel Abbott MD Work Phone: [facility] 10-02-2024 10:58-0400 Body temperature 98.4 [degF] Fidel Abbott MD Work Phone: [facility] 10-02-2024 10:58-0400 Body weight 102.05 kg Fidel Abbott MD Work Phone: [facility] 08-30-2024 12:17-0400 Body temperature 96.7 [degF] Fidel Abbott MD Work Phone: [facility] 08-30-2024 12:17-0400 Diastolic blood pressure 42 mm[Hg] Fidel Abbott MD Work Phone: [facility] 08-30-2024 12:17-0400 Heart rate 56 /min Fidel Abbott MD Work Phone: [facility] 08-30-2024 12:17-0400 SaO2% (BldA) [Mass fraction] 97 % Fidel Abbott MD Work Phone: [facility] 08-30-2024 12:17-0400 Systolic blood pressure 98 mm[Hg] Fidel Abbott MD Work Phone: [facility] 08-15-2024 11:19-0400 Body height 180.34 cm Fidel Abbott MD Work Phone: [facility] 08-15-2024 11:19-0400 Body mass index (BMI) [Ratio] 31.4 kg/m2 Fidel Abbott MD Work Phone: [facility] 08-15-2024 11:19-0400 Body weight 102.05 kg Fidel Abbott MD Work Phone: [facility] 08-15-2024 10:28-0400 Body temperature 98.1 [degF] Fidel Abbott MD Work Phone: [facility] 08-15-2024 10:28-0400 Diastolic blood pressure 70 mm[Hg] Fidel Abbott MD Work Phone: [facility] 08-15-2024 10:28-0400 Heart rate 71 /min Fidel Abbott MD Work Phone: [facility] 08-15-2024 10:28-0400 Respiratory rate 16 /min Fidel Abbott MD Work Phone: [facility] 08-15-2024 10:28-0400 Systolic blood pressure 134 mm[Hg] Fidel Abbott MD Work Phone: [facility] 07-31-2024 10:49-0400 Body height 180.3 cm Fidel Abbott MD Work Phone: [facility] 07-31-2024 10:49-0400 Body temperature 97.5 [degF] Fidel Abbott MD Work Phone: [facility] 07-31-2024 10:49-0400 Diastolic blood pressure 70 mm[Hg] Fidel Abbott MD Work Phone: [facility] 07-31-2024 10:49-0400 Heart rate 57 /min Fidel Abbott MD Work Phone: [facility] 07-31-2024 10:49-0400 Respiratory rate 18 /min Fidel Abbott MD Work Phone: [facility] 07-31-2024 10:49-0400 SaO2% (BldA) [Mass fraction] 98 % Fidel Abbott MD Work Phone: [facility] 07-31-2024 10:49-0400 Systolic blood pressure 142 mm[Hg] Fidel Abbott MD Work Phone: [facility] 03-14-2024 11:23-0500 Body height 180.34 cm Fidel Abbott MD Work Phone: [facility] 03-14-2024 11:23-0500 Body mass index (BMI) [Ratio] 31.4 kg/m2 Fidel Abbott MD Work Phone: [facility] 03-14-2024 11:23-0500 Body weight 102.05 kg Fidel Abbott MD Work Phone: [facility] 03-14-2024 10:50-0500 Body temperature 98.2 [degF] Fidel Abbott MD Work Phone: [facility] 03-14-2024 10:50-0500 Diastolic blood pressure 67 mm[Hg] Fidel Abbott MD Work Phone: [facility] 03-14-2024 10:50-0500 Heart rate 61 /min Fidel Abbott MD Work Phone: [facility] 03-14-2024 10:50-0500 Respiratory rate 18 /min Fidel Abbott MD Work Phone: [facility] 03-14-2024 10:50-0500 Systolic blood pressure 128 mm[Hg] Fidel Abbott MD Work Phone: [facility] 02-08-2024 11:44-0500 Body height 180.34 cm Fidel Abbott MD Work Phone: [facility] 02-08-2024 11:44-0500 Body mass index (BMI) [Ratio] 31.4 kg/m2 Fidel Abbott MD Work Phone: [facility] 02-08-2024 11:44-0500 Body weight 102.05 kg Fidel Abbott MD Work Phone: [facility] 02-08-2024 10:51-0500 Body temperature 98.1 [degF] Fidel Abbott MD Work Phone: [facility] 02-08-2024 10:51-0500 Diastolic blood pressure 66 mm[Hg] Fidel Abbott MD Work Phone: [facility] 02-08-2024 10:51-0500 Heart rate 64 /min Fidel Abbott MD Work Phone: [facility] 02-08-2024 10:51-0500 Respiratory rate 18 /min Fidel Abbott MD Work Phone: [facility] 02-08-2024 10:51-0500 Systolic blood pressure 125 mm[Hg] Fidel Abbott MD Work Phone: [facility] 01-20-2024 11:52-0400 Body height 180.3 cm Fidel Abbott MD Work Phone: [facility] 01-20-2024 11:52-0400 Body temperature 97.5 [degF] Fidel Abbott MD Work Phone: [facility] 01-20-2024 11:52-0400 Diastolic blood pressure 58 mm[Hg] Fidel Abbott MD Work Phone: [facility] 01-20-2024 11:52-0400 Heart rate 57 /min Fidel Abbott MD Work Phone: [facility] 01-20-2024 11:52-0400 Respiratory rate 20 /min Fidel Abbott MD Work Phone: [facility] 01-20-2024 11:52-0400 SaO2% (BldA) [Mass fraction] 99 % Fidel Abbott MD Work Phone: [facility] 01-20-2024 11:52-0400 Systolic blood pressure 130 mm[Hg] Fidel Abbott MD Work Phone: [facility] 11-18-2023 13:47-0400 Body height 180.3 cm Fidel Abbott MD Work Phone: [facility] 11-18-2023 13:47-0400 Body temperature 97.5 [degF] Fidel Abbott MD Work Phone: [facility] 11-18-2023 13:47-0400 Diastolic blood pressure 70 mm[Hg] Fidel Abbott MD Work Phone: [facility] 11-18-2023 13:47-0400 Heart rate 60 /min Fidel Abbott MD Work Phone: [facility] 11-18-2023 13:47-0400 Respiratory rate 18 /min Fidel Abbott MD Work Phone: [facility] 11-18-2023 13:47-0400 SaO2% (BldA) [Mass fraction] 97 % Fidel Abbott MD Work Phone: [facility] 11-18-2023 13:47-0400 Systolic blood pressure 160 mm[Hg] Fidel Abbott MD Work Phone: [facility] 06-04-2023 13:27-0500 Diastolic blood pressure 58 mm[Hg] MD Fidel Abbott Work Phone: [facility] 06-04-2023 13:27-0500 Heart rate 60 /min MD Fidel Abbott Work Phone: [facility] 06-04-2023 13:27-0500 Respiratory rate 12 /min MD Fidel Abbott Work Phone: [facility] 06-04-2023 13:27-0500 SaO2% (BldA) [Mass fraction] 98 % MD Fidel Abbott Work Phone: [facility] 06-04-2023 13:27-0500 Systolic blood pressure 135 mm[Hg] MD Fidel Abbott Work Phone: [facility] 06-04-2023 10:49-0500 Body height 180.34 cm MD Fidel Abbott Work Phone: [facility] 06-04-2023 10:49-0500 Body temperature 98 [degF] MD Fidel Abbott Work Phone: [facility] 06-04-2023 10:49-0500 Body weight 114.3 kg MD Fidel Abbott Work Phone: [facility] 05-06-2023 10:40-0500 Body height 177.8 cm Jonathan Bah DPM Work Phone: [facility] 05-06-2023 10:40-0500 Body mass index (BMI) [Ratio] 35.87 kg/m2 Jonathan Bah DPM Work Phone: [facility] 05-06-2023 10:40-0500 Body weight 113.4 kg Jonathan Bah DPM Work Phone: [facility] 05-06-2023 10:40-0500 Diastolic blood pressure 80 mm[Hg] Jonathan Bah DPM Work Phone: [facility] 05-06-2023 10:40-0500 Heart rate 79 /min Jonathan Bah DPM Work Phone: [facility] 05-06-2023 10:40-0500 Systolic blood pressure 133 mm[Hg] Jonathan Bah DPM Work Phone: [facility] 05-04-2023 13:06-0500 Body mass index (BMI) [Ratio] 34.8 kg/m2 MD Fidel Abbott Work Phone: [facility] 05-04-2023 12:48-0500 Body height 180.34 cm MD Fidel Abbott Work Phone: [facility] 05-04-2023 12:48-0500 Body weight 113.39 kg MD Fidel Abbott Work Phone: [facility] 05-04-2023 11:25-0500 Body temperature 97.3 [degF] MD Fidel Abbott Work Phone: [facility] 05-04-2023 11:25-0500 Diastolic blood pressure 78 mm[Hg] MD Fidel Abbott Work Phone: [facility] 05-04-2023 11:25-0500 Heart rate 64 /min MD Fidel Abbott Work Phone: [facility] 05-04-2023 11:25-0500 Respiratory rate 18 /min MD Fidel Abbott Work Phone: [facility] 05-04-2023 11:25-0500 Systolic blood pressure 177 mm[Hg] MD Fidel Abbott Work Phone: [facility] 11-09-2022 13:10-0400 Blood Pressure Location Jovanny VILLA [facility] 11-09-2022 13:10-0400 Diastolic blood pressure 72 mm[Hg] Jovanny VILLA [facility] 11-09-2022 13:10-0400 Heart rate 78 /min Jovanny VILLA [facility] 11-09-2022 13:10-0400 Systolic blood pressure 148 mm[Hg] Jovanny VILLA [facility] 06-26-2022 14:00-0400 Body temperature 97.81 [degF] Eli Pimentel MD Work Phone: [facility] [employer] [facility] 06-26-2022 14:00-0400 Diastolic blood pressure 62 mm[Hg] Eli Pimentel MD Work Phone: [facility] [employer] [facility] 06-26-2022 14:00-0400 Heart rate 70 /min Eli Pimentel MD Work Phone: [facility] 06-26-2022 14:00-0400 Respiratory rate 18 /min Eli Pimentel MD Work Phone: [employer] 06-26-2022 14:00-0400 SaO2% (BldA) [Mass fraction] 95 % Eli Pimentel MD Work Phone: [employer] 06-26-2022 14:00-0400 Systolic blood pressure 144 mm[Hg] Eli Pimentel MD Work Phone: [facility] [employer] 06-26-2022 05:30-0400 Body mass index (BMI) [Ratio] 34.28 kg/m2 Eli Pimentel MD Work Phone: [facility] 06-26-2022 05:30-0400 Body weight 111.49 kg Eli Pimentel MD Work Phone: [facility] 06-25-2022 04:54-0400 Body height 180.3 cm Eli Pimentel MD Work Phone: [facility] 06-02-2022 12:14-0500 Body height 172.72 cm MD Fidel Abbott Work Phone: [facility] 06-02-2022 12:14-0500 Body mass index (BMI) [Ratio] 41 kg/m2 MD Fidel Abbott Work Phone: [facility] 06-02-2022 12:14-0500 Body weight 122.46 kg MD Fidel Abbott Work Phone: [facility] 06-02-2022 09:52-0500 Body temperature 97 [degF] MD Fidel Abbott Work Phone: [facility] 06-02-2022 09:52-0500 Diastolic blood pressure 73 mm[Hg] MD Fidel Abbott Work Phone: [facility] 06-02-2022 09:52-0500 Heart rate 76 /min MD Fidel Abbott Work Phone: [facility] 06-02-2022 09:52-0500 Systolic blood pressure 155 mm[Hg] MD Fidel Abbott Work Phone: [facility] 03-03-2022 12:06-0500 Body height 180.34 cm MD Fidel Abbott Work Phone: [facility] 03-03-2022 12:06-0500 Body mass index (BMI) [Ratio] 34.8 kg/m2 MD Fidel Abbott Work Phone: [facility] 03-03-2022 12:06-0500 Body weight 113.39 kg MD Fidel Abbott Work Phone: [facility] 03-03-2022 11:37-0500 Body temperature 97.7 [degF] MD Fidel Abbott Work Phone: [facility] 03-03-2022 11:37-0500 Diastolic blood pressure 56 mm[Hg] MD Fidle Abbott Work Phone: [facility] 03-03-2022 11:37-0500 Heart rate 68 /min MD Fidel Abbott Work Phone: [facility] 03-03-2022 11:37-0500 Respiratory rate 18 /min MD Fidel Abbott Work Phone: [facility] 03-03-2022 11:37-0500 Systolic blood pressure 122 mm[Hg] MD Fidel Abbott Work Phone: [facility] Encounters Encounter Date Encounter Type Care Provider Facility Start: 11-22-2024 End: 11-22-2024 Refill Fidel Abbott MD Work Phone: [facility] Comment on above: Primary hypertension ; Benign hypertension ; Type 2 diabetes mellitus with hyperglycemia, without long-term current use of insulin (HCC); Dyslipidemia Start: 11-01-2024 End: 11-02-2024 Refill Fidel Abbott MD Work Phone: [facility] Comment on above: Type 2 diabetes ez itus with hyperglycemia, without long-term current use of insulin (HCC) Start: 10-10-2024 ambulatory Fidel Abbott Facility:[facility] Start: 10-02-2024 End: 10-03-2024 External Result Encounter Cathy Brar MD Work Phone: [facility] External Department Unsolicited Start: 10-02-2024 End: 10-03-2024 External Result Encounter Cathy Edwards MD Work Phone: [facility] External Department Unsolicited Start: 10-02-2024 End: 10-02-2024 Admission to same day surgery center Cathy Brar MD [facility] [place] Start: 10-02-2024 End: 10-02-2024 ambulatory Fidel Abbott MD Work Phone: [facility] Work Phone: Start: 09-26-2024 End: 09-26-2024 [...] encounter procedure Fidel Abbott MD Work Phone: [facility] Work Phone: Start: 08-30-2024 End: 08-30-2024 ambulatory Fidel Abbott MD Work Phone: [facility] Work Phone: Start: 08-15-2024 Registered Recurring Fidel dubose MD Work Phone: [facility] Work Phone: Start: 08-10-2024 End: 08-10-2024 Clinisync Result Encounter Generic External Data Provider [facility] External Department Unsolicited Start: 08-10-2024 End: 08-10-2024 Clinisync Result Encounter Generic External Data Provider [facility] External Department Unsolicited Start: 07-31-2024 End: 07-31-2024 Bamboo flowsheet Fidel Abbott MD Work Phone: [facility] Start: 07-31-2024 End: 07-31-2024 Bamboo flowsheet Fidel Abbott MD Work Phone: [facility] Start: 07-31-2024 End: 07-31-2024 Office outpatient visit 25 minutes Fidel Abbott MD Work Phone: [facility] Comment on above: Type 2 diabetes ez itus with hyperglycemia, without long-term current use of insulin ([facility]) (Primary Dx); Benign hypertension ([facility]); Major depressive disorder, recurrent episode, mild (HCC) ([facility]); Incontinence overflow, urine; Chronic superficial 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; Urticaria; Pruritus; Annual physical exam; Chronic kidney disease, stage 3a (HCC) ([facility]); Class 2 severe obesity due to excess calories with serious comorbidity and body mass index (BMI) of 36.0 to 36.9 in adult ([facility]); Type 2 diabetes mellitus with other specified complication; Hyperlipidemia, unspecified (CMS/HCC); Pressure ulcer of right heel, unstageable ([facility]); Type 2 diabetes mellitus with other skin ulcer (CODE); Paraplegia, unspecified; Diabetes mellitus due to underlying condition with diabetic polyneuropathy ([facility]) Start: 07-31-2024 End: 07-31-2024 Patient encounter procedure Fidel Abbott MD Work Phone: [facility] Start: 07-31-2024 End: 07-31-2024 ambulatory FIDEL ABBOTT Not Available Start: 05-30-2024 End: 05-30-2024 Clinisync Result Encounter Generic External Data Provider [facility] External Department Unsolicited Start: 05-30-2024 End: 05-30-2024 Clinisync Result Encounter Generic External Data Provider [facility] External Department Unsolicited Start: 05-02-2024 ambulatory ANGIE Acuna ty:CHLOE Walls Start: 04-17-2024 End: 04-17-2024 Telephone encounter Scanning Provider External [facility] Start: 04-14-2024 End: 04-14-2024 Telephone encounter Mary Conner CMA [facility] Start: 04-06-2024 End: 04-06-2024 Telephone encounter Mary Conner CMA [facility] Start: 03-14-2024 End: 03-14-2024 ambulatory Fidel Abbott MD Work Phone: [facility] Work Phone: Start: 03-14-2024 End: 03-14-2024 Discharged Recurring Fidel Abbott MD Work Phone: [facility] Work Phone: Start: 03-13-2024 End: 03-13-2024 Refill Fidel Abbott MD Work Phone: [facility] Comment on above: Pruritus Start: 03-10-2024 Non-patient / Non-visit Fidel campbell MD Work Phone: [facility] Physician [facility] Out[facility] Work Phone: Start: 03-10-2024 End: [...] Fidel dubose MD Work Phone: [facility] Work Phone: Start: 02-08-2024 End: 02-08-2024 Patient encounter procedure Fidel Abbott MD Work Phone: [facility] [place] Work Phone: Start: 02-08-2024 End: 02-08-2024 ambulatory Fidel Abbott MD Work Phone: [facility] Work Phone: Start: 01-20-2024 End: 01-20-2024 [...] Orders Only Iraj Valdivia MD Work Phone: [facility] Comment on above: Stage 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 (CMS-HCC) (Primary Dx) Start: 01-12-2024 End: 01-12-2024 Telephone encounter Scanning Provider External [facility] Start: 12-02-2023 End: 12-02-2023 Clinisync [...] encounter procedure Jovanny VILLA [facility] Start: 10-11-2023 End: 10-11-2023 ambulatory Khadar [facility] Start: 07-08-2023 End: 07-08-2023 ambulatory MD Fidel Abbott Work Phone: [facility] Work Phone: Start: 07-08-2023 End: 07-08-2023 Departed Referred MD Fidel Abbott Work Phone: [facility] Start: 06-04-2023 End: 06-04-2023 Admission to same day surgery center MD Fidel Abbott Work Phone: [facility] [place] Start: 05-13-2023 Telephone encounter Sandhya Grijalva [facility] [...] underlying condition with diabetic polyneuropathy, unspecified whether group home insulin use (CMS/HCC); Acute complete paraplegia (CMS/HCC); Acute osteomyelitis of left fibula (CMS/HCC); Foot ulcer, right, with fat layer exposed (CMS/HCC); Venous insufficiency Start: 05-04-2023 End: 05-04-2023 ambulatory MD Fidel Abbott Work Phone: [facility] Work Phone: Start: 05-04-2023 End: 05-04-2023 Discharged Recurring MD Fidel Abbott Work Phone: [facility] Work Phone: Start: 11-09-2022 End: 11-09-2022 Patient encounter procedure Jovanny VILLA [facility] Start: 09-25-2022 End: 09-26-2022 ambulatory FIDEL ABBOTT [facility] Start: 09-18-2022 End: 09-21-2022 ambulatory ASHLEEKAM ERWIN [facility] Start: 09-18-2022 End: 09-20-2022 Subsequent hospital visit by physician Francisca Ultrasound Room 2 At [facility] Ultrasound Comment on above: Cauda equina syndrom e (HCC); Neurogenic bladder; Urinary retention; Urinary incontinence without sensory awareness Start: 2022 End: 2022 ambulatory [facility] Start: 07-02-2022 End: 07-03-2022 ambulatory SHELLY [facility] Start: 07-02-2022 End: 07-02-2022 Subsequent hospital visit by physician Fidel Abbott MD Work Phone: [facility] Laboratory Comment on above: Acute kidney injury (HCC); Iron deficiency anemia, unspecified iron deficiency anemia type Start: 06-22-2022 End: 06-26-2022 Evaluation and management of inpatient [facility] Start: 06-22-2022 End: 06-26-2022 Evaluation and management of inpatient Eli Pimentel MD [facility] Comment on above: Acute kidney injury (HCC) (Primary Dx); Hyperkalemia; Iron deficiency anemia, unspecified iron deficiency anemia type Start: 06-22-2022 End: 06-22-2022 ambulatory [facility] Start: 06-22-2022 End: 06-22-2022 Subsequent hospital visit by physician Fidel Abbott MD Work Phone: [facility] EKG Comment on above: Neurogenic bladder Start: 06-02-2022 End: 06-02-2022 ambulatory MD Fidel Abbott Work Phone: [facility] Work Phone: Start: 06-02-2022 End: 06-02-2022 Discharged Recurring MD Fidel Abbott Work Phone: [facility] Work Phone: Start: 03-14-2022 End: 03-15-[address] CATHY BRAR Facility:[facility] Start: 03-03-2022 End: 03-03-2022 ambulatory MD Fidel Abbott Work Phone: [facility] Work Phone: Start: 03-03-2022 End: 03-03-2022 Discharged Recurring MD Fidel Abbott Work Phone: [facility] Work Phone: Start: 02-26-2022 End: 02-27-[address] CATHY BRAR Facility:[facility] Start: 05-30-2021 End: 05-31-[address] FIDEL ABBOTT Facility:[facility] Start: 04-09-2017 End: 04-13-2017 Evaluation and management of inpatient [facility] Procedures Date Procedure Procedure Detail Performing [...] retroperitoneal real time w/image complete Ashlee Erwin INVESTIGATOR VICE - WINDOWS CONSULTANT Work Phone: Start: 2022 Optical urethrotomy Jovanny VILLA Start: 07-02-2022 Basic metabolic panel calcium total Hoda jose Mondragon INVESTIGATOR VICE - WINDOWS CONSULTANT Work Phone: Start: 06-26-2022 End: 06-26-2022 COLONOSCOPY [...] actv qual feces 1 deter Shelly GoldersKipTripp INVESTIGATOR VICE - WINDOWS CONSULTANT Work Phone: Start: 06-25-2022 Cul bact xcpt [...] of packed red blood cells Shelly [employer]ersK[employer]Tripp INVESTIGATOR VICE - WINDOWS CONSULTANT Work Phone: Start: 06-24-2022 Echo tthrc r-t 2d w/wom-mode compl spec&colr d Shelly [employer]ers[employer]ripp INVESTIGATOR VICE - WINDOWS CONSULTANT Work Phone: Start: 06-24-2022 Blood typing serologic abo Shelly GoldersShea INVESTIGATOR VICE - WINDOWS CONSULTANT Work Phone: Start: 06-24-2022 GLUCOSE, WHOLE BLOOD Matias Garcia MD Work Phone: Start: 06-24-2022 End: 06-24-2022 Prothrombin time Shelly Mondragon INVESTIGATOR VICE - WINDOWS CONSULTANT Work Phone: Start: 06-24-2022 VITAMIN B12 & FOLATE Shelly GoldersShea INVESTIGATOR VICE - WINDOWS CONSULTANT Work Phone: Start: 06-24-2022 End: 06-25-2022 Rhythm [...] ankle complete minimum 3 views Shelly Mondragon INVESTIGATOR VICE - WINDOWS CONSULTANT Work Phone: Start: 06-23-2022 Lipid panel Zoila [...] Screening for malignant neoplasm of colon [facility] Start: 02-01-2025 End: 02-01-2025 Patient encounter procedure 02/01/2025 10:30 AM EST Office Visit [facility] [address] [place] [address] Fidel Abbott MD [address] [place] [address] [facility] Start: 11-27-2024 Influenza vaccination [facility] Start: 10-10-2024 Adult BMI Screening Adult BMI Screening [facility] Start: 10-10-2024 Tobacco Screening Tobacco Screening [facility] Start: 10-02-2024 Aerobic Culture Aerobic Culture [facility] Start: 10-02-2024 Anaerobic Culture Anaerobic Culture [facility] Start: 10-02-2024 Microscopic observation [Identifier] in Unspecified specimen by Gram stain [facility] Start: 10-02-2024 End: 10-02-2024 [facility] Start: 08-30-2024 Ankle brachial pressure index [facility] Start: 07-31-2024 End: 07-31-2025 Basic metabolic 1998 panel - Serum or Plasma Basic metabolic panel Lab Routine Annual physical exam Expected: 07/31/2024 (Approximate), Expires: 07/31/2025 [facility] Comment on above: Expected: 07/31/2024 (Approximate), Expi res: 07/31/2025 Start: 07-31-2024 End: 07-31-2025 CBC W Auto Differential panel - Blood CBC and differential Lab Routine Annual physical exam Expected: 07/31/2024 (Approximate), Expires: 07/31/2025 [facility] Comment on above: Expected: 07/31/2024 (Approximate), Expi res: 07/31/2025 Start: 07-31-2024 End: 07-31-2025 Hemoglobin A1c/Hemoglobin.total in Blood Hemoglobin A1c Lab Routine Annual physical exam Expected: 07/31/2024 (Approximate), Expires: 07/31/2025 [facility] Comment on above: Expected: 07/31/2024 (Approximate), Expi res: 07/31/2025 Start: 07-31-2024 End: 07-31-2025 Hepatic function 2000 panel - Serum or Plasma Hepatic function panel Lab Routine Annual physical exam Expected: 07/31/2024 (Approximate), Expires: 07/31/2025 [facility] Comment on above: Expected: 07/31/2024 (Approximate), Expi res: 07/31/2025 Start: 07-31-2024 End: 07-31-2025 Lipid 1996 panel - Serum or Plasma Lipid panel Lab Routine Annual physical exam Expected: 07/31/2024 (Approximate), Expires: 07/31/2025 [facility] Comment on above: Expected: 07/31/2024 (Approximate), Expi res: 07/31/2025 Start: 07-31-2024 End: 07-31-2025 Microalbumin/Creatinine panel in random Urine Microalbumin / creatinine, urine ratio Lab Routine Type 2 diabetes mellitus with hyperglycemia, without long-term current use of insulin ([facility]) Expected: 07/31/2024 (Approximate), Expires: 07/31/2025 [facility] Work Phone: Comment on above: Expected: 07/31/2024 [...] [facility] [address] [place] [phone] Fidel Abbott MD [address] [place] [phone] Arrived [facility] Comment on above: Arrived Start: 05-22-2024 End: 05-22-2024 Patient encounter procedure 05/22/2024 1:15 PM EST Office Visit [facility] [address] [place] [address] Fidel Abbott MD [address] [place] [phone] [facility] Start: 04-20-2024 End: 04-20-2024 Patient encounter procedure 04/20/2024 1:30 PM EST Office Visit N [facility] [address] [place] [phone] Iraj Valdivia MD [address] [place], [place] [id number] [facility] Start: 04-13-2024 End: 04-13-2024 Patient encounter procedure 04/13/2024 2:00 PM EST Office Visit N [facility] [address] [place] [phone] Iraj Valdivia MD [address] [place] [address] [facility] Start: 01-20-2024 End: 01-20-2024 Patient encounter procedure 01/20/2024 11:45 AM EDT Office Visit [facility] [address] [place] [phone] Fidel Abbott MD [address] [place] [phone] Arrived [facility] Comment on above: Arrived Start: 11-28-2023 Influenza vaccination [facility] Start: 11-18-2023 End: 11-17-2024 Albumin, urine, random Albumin, urine, random Lab Routine Type 2 diabetes mellitus with hyperglycemia, without long-term current use of insulin ([facility]) Expected: 11/18/2023 (Approximate), Expires: 11/17/2024 [facility] Work Phone: Comment on above: Expected: 11/18/2023 (Approximate), Expi res: 11/17/2024 Start: 11-18-2023 End: 11-17-2024 Basic metabolic 1998 panel - Serum or Plasma Basic metabolic panel Lab Routine Encounter for long-term (current) use of medications Expected: 11/18/2023 (Approximate), Expires: 11/17/2024 [facility] Comment on above: Expected: 11/18/2023 (Approximate), Expi res: 11/17/2024 Start: 11-18-2023 End: 11-17-2024 CBC W Auto Differential panel - Blood CBC and differential Lab Routine Encounter for long-term (current) use of medications Expected: 11/18/2023 (Approximate), Expires: 11/17/2024 [facility] Comment on above: Expected: 11/18/2023 (Approximate), Expi res: 11/17/2024 Start: 11-18-2023 End: 11-17-2024 Hemoglobin A1c/Hemoglobin.total in Blood Hemoglobin A1c Lab Routine Type 2 diabetes mellitus with hyperglycemia, without long-term current use of insulin ([facility]) Expected: 11/18/2023 (Approximate), Expires: 11/17/2024 [facility] Comment on above: Expected: 11/18/2023 (Approximate), Expi res: 11/17/2024 Start: 11-18-2023 End: 11-17-2024 Hepatic function 2000 panel - Serum or Plasma Hepatic function panel Lab Routine Encounter for long-term (current) use of medications Expected: 11/18/2023 (Approximate), Expires: 11/17/2024 [facility] Comment on above: Expected: 11/18/2023 (Approximate), Expi res: 11/17/2024 Start: 11-18-2023 End: 11-17-2024 Lipid 1996 panel - Serum or Plasma Lipid panel Lab Routine Type 2 diabetes mellitus with hyperglycemia, without long-term current use of insulin ([facility]) Expected: 11/18/2023 (Approximate), Expires: 11/17/2024 [facility] Comment on above: Expected: 11/18/2023 (Approximate), Expi res: 11/17/2024 Start: 10-18-2023 End: 10-18-2023 Patient encounter procedure 10/18/2023 10:00 AM EDT Office Visit [facility] [address] [place] [address] Fidel Abbott MD [address] [place] [address] [facility] Start: 09-19-2023 GFR test (Diabetes, CKD 3-4, OR last GFR 15-59) GFR test (Diabetes, CKD 3-4, OR last GFR 15-59) [facility] Start: 09-19-2023 Urine screening for protein Diabetes: Urine Protein Screening [facility] Start: 07-08-2023 Hemoglobin A1c measurement A1C test (Diabetic or Prediabetic) [facility] [employer] Start: 07-03-2023 GFR test (Diabetes, CKD 3-4, OR last GFR 15-59) GFR test (Diabetes, CKD 3-4, OR last GFR 15-59) [facility] Start: 06-27-2023 Screening for malignant neoplasm of colon [facility] [employer] Start: 06-26-2023 GFR test (Diabetes, CKD 3-4, OR last GFR 15-59) GFR test (Diabetes, CKD 3-4, OR last GFR 15-59) [facility] Start: 06-26-2023 Screening for malignant neoplasm of colon [facility] Start: 06-24-2023 Lipid panel Lipids [facility] [employer] Start: 06-23-2023 GFR test (Diabetes, CKD 3-4, OR last GFR 15-59) GFR test (Diabetes, CKD 3-4, OR last GFR 15-59) [facility] Start: 06-04-2023 [facility] Start: 05-20-2023 End: 05-20-2023 Patient encounter procedure 05/20/2023 3:10 PM EST Office Visit [facility] [address] [facility] [address] [place] [address] Jonathan Bah DPM [address] [address] [facility] Start: 05-06-2023 End: 05-06-2023 Patient encounter procedure 05/06/2023 10:20 AM EST Office Visit [facility] [address] [address] Jonathan Bah DPM [address] [address] [facility] Start: 10-27-2022 Influenza vaccination Flu vaccine (Season Ended) [facility] Start: 10-06-2022 Hemoglobin A1c measurement Diabetes: Hemoglobin A1C [facility] Start: 09-25-2022 End: 09-25-2022 Patient encounter procedure 09/25/2022 Office Visit [facility] Start: 07-08-2022 End: 07-08-2022 Patient encounter procedure 07/08/2022 Office Visit [facility] Start: 2022 End: 2022 Admission to same day surgery center 2022 Surgery IP Unit Angeles Nagy MD [address], [address] [place], [place] [id number] CYSTOSCOPY TRANSURETHROTOMY- DVIU WITH POSS TRANSURETHRAL RESECTION OF BLADDER TUMOR [facility] Comment on above: CYSTOSCOPY TRANSURETHROTOMY- DVIU WITH P OSS TRANSURETHRAL RESECTION OF BLADDER TUMOR Start: 2022 End: 2022 Cystourethroscopy w/internal urethrotomy male CYSTOSCOPY TRANSURETHROTOMY Cauda equina syndrome (HCC) 2022 8:30 AM EDT [facility] Start: 2022 Subsequent hospital visit by physician 2022 Hospital Encounter IP Unit Angeles Nagy MD [address], [address] [place], [place] [id number] [facility] Start: 07-01-2022 End: 06-27-2023 Basic metabolic 2000 panel - Serum or Plasma Basic Metabolic Panel Lab Routine Acute kidney injury (HCC) Expected: 07/01/2022, Expires: 06/27/2023 [facility] Work Phone: Comment on above: Expected: 07/01/2022, Expires: 4 Start: 07-01-2022 End: 06-27-2023 CBC W Auto Differential panel - Blood CBC with Auto Differential Lab Routine Acute kidney injury (HCC) Iron deficiency anemia, unspecified iron deficiency anemia type Expected: 07/01/2022, Expires: 06/27/2023 [employer] Phone: Comment on above: Expected: 07/01/2022, Expires: Start: 06-22-2022 Annual Wellness Visit (AWV) Annual Wellness Visit (AWV) [facility] Start: 10-27-2021 Influenza vaccination Flu vaccine (#1) [facility] Start: 04-09-2018 Diabetic foot examination Diabetic foot exam [facility] Start: 04-09-2018 Hemoglobin A1c measurement A1C test (Diabetic or Prediabetic) [facility] Start: 04-25-2016 Lipid panel Lipids [facility] Start: 04-24-2016 Urine screening for protein [facility] Start: 07-08-2011 Administration of varicella zoster vaccine Zoster (Shingles) Vaccine (1 of 2) [facility] Start: 07-08-2011 Shingles vaccine (1 of 2) Shingles vaccine (1 of 2) [facility] Start: 2006 Screening for malignant neoplasm of colon [facility] Start: 1980 DTaP,Tdap and Td Vaccines (1 - Tdap) DTaP,Tdap and Td Vaccines (1 - Tdap) [facility] Start: 1980 DTaP/Tdap/Td vaccine (1 - Tdap) DTaP/Tdap/Td vaccine (1 - Tdap) [facility] Start: 1980 Urine screening for protein Diabetes: Urine Protein Screening [facility] Start: 07-08-1979 Adult BMI Follow Up Plan Adult BMI Follow Up Plan [facility] Start: 07-08-1979 Glaucoma screening Diabetic retinal exam [facility] Start: 07-08-1979 Hepatitis C screening Hepatitis C screen [facility] Start: 1976 HIV screening HIV screen [facility] Start: 1973 Depression Monitoring Depression Monitoring [facility] Start: 1973 Depression Screening Depression Screening [facility] Start: 07-08-1971 Glaucoma screening Diabetes: Retinopathy Screening [facility] Start: 07-08-1967 Pneumococcal 0-64 years Vaccine (1 - PCV) Pneumococcal 0-64 years Vaccine (1 - PCV) [facility] Start: 01-06-1962 COVID-19 Vaccine (#1) COVID-19 Vaccine (#1) [facility] Start: 1961 Screening for malignant neoplasm of colon [facility] AEROBIC CULTURE AEROBIC CULTURE Lab Routine 10/02/2024 12:38 PM EDT [facility] Work Phone: ANAEROBIC CULTURE ANAEROBIC CULT URE Lab Routine 10/02/2024 12:38 PM EDT [facility] Bacteria identified in Unspecified specimen by Aerobe culture [facility] Bacteria identified in Unspecified specimen by Anaerobe culture [facility] End: 01-16-2025 Basic metabolic 2000 panel - Serum or Plasma Basic Metabolic Panel Lab Routine Stage 3a chronic kidney disease ([facility]) 1 Occurrences starting 01/17/2024 until 01/16/2025 [facility] Work Phone: Comment on above: 1 Occurrences starting 01/17/2024 until 01/16/2025 End: 01-16-2025 CBC panel - Blood by Automated count CBC without diff Lab Routine Stage 3a chronic kidney disease ([facility]) 1 Occurrences starting 01/17/2024 until 01/16/2025 [facility] Comment on above: 1 Occurrences starting 01/17/2024 until 01/16/2025 End: 06-27-2022 CBC W Auto Differential panel - Blood CBC auto differential Lab Routine Daily for 5 Days starting 06/23/2022 until 06/27/2022, 4 completed [employer] Work Phone: Comment on above: Daily for 5 Days starting 06/23/2022 unt il 06/27/2022, 4 completed Culture, Wound Aerob ic Only Culture, Wound Aerobic Only Microbiology [employer] Label Print 06/25/2022 12:20 PM EDT [employer] Work Phone: End: 06-25-2022 Hemoglobin and Hematocrit Hemoglobin and Hematocrit Lab Routine Post Transfusion Post Transfusion Post Transfustion until discontinued starting 06/24/2022, 1 completed [employer] Work Phone: Comment on above: Post Transfusion Post Transfusion Post T ransfustion until discontinued starting 06/24/2022, 1 completed End: 01-16-2025 Magnesium [Mass/volume] in Serum or Plasma Magnesium Lab Routine Stage 3a chronic kidney disease (CMS-HCC) 1 Occurrences starting 01/17/2024 until 01/16/2025 [employer] Comment on above: 1 Occurrences starting 01/17/2024 until 01/16/2025 Oxygen therapy [[facility] Data Set] Initiate Oxygen Therapy Protocol Respiratory Care Routine Daily until discontinued starting 06/22/2022 [employer] Phone: Comment on above: Daily until discontinued starting 2022 End: 01-16-2025 Parathyroid Hormone, intact Parathyroid Hormone, intact Lab Routine Stage 3a chronic kidney disease ([facility]) 1 Occurrences starting 01/17/2024 until 01/16/2025 [facility] Comment on above: 1 Occurrences starting 01/17/2024 until 01/16/2025 Patient Education Know your Meds [facility] Work Phone: Patient referral [facility] Work Phone: End: 01-16-2025 Phosphate [Mass/volume] in Serum or Plasma Phosphorus Lab Routine Stage 3a chronic kidney disease ([facility]) 1 Occurrences starting 01/17/2024 until 01/16/2025 [facility] Comment on above: 1 Occurrences starting 01/17/2024 until 01/16/2025 End: 06-24-2022 PREPARE RBC (CROSSMATCH), 1 Units PREPARE RBC (CROSSMATCH), 1 Units Blood Bank Routine Once for 1 Occurrences starting 06/24/2022 until 06/24/2022 [employer] Phone: Comment on above: Once for 1 Occurrences starting 06/25/19 until 06/24/2022 End: 01-16-2025 Protein creat ratio Protein creat ratio Lab Routine Stage 3a chronic kidney disease [facility] 1 Occurrences starting 01/17/2024 until 01/16/2025 [facility] Comment on above: 1 Occurrences starting 01/17/2024 until 01/16/2025 End: 06-25-2022 Surgical Pathology Surgical Pathology Lab Routine One Time for 1 Occurrences starting 06/25/2022 until 06/25/2022 [employer] Phone: Comment on above: One Time for 1 Occurrences starting 05/29 until 06/25/2022 Surgical Pathology Surgical Path ology Lab Routine Hyperkalemia Release Upon Ordering for 1 Occurrences starting 06/26/2022 [employer] Phone: Comment on above: Release Upon Ordering for 1 Occurrences starting 06/26/2022 End: 06-25-2022 SURGICAL PATHOLOGY REPORT SURGICAL PATHOLOGY REPORT Lab Routine Once for 1 Occurrences starting 06/25/2022 until 06/25/2022 [employer] Work Phone: Comment on above: Once for 1 Occurrences starting 06/26/19 until 06/25/2022 End: 06-26-2022 SURGICAL PATHOLOGY REPORT SURGICAL PATHOLOGY REPORT Lab Routine Once for 1 Occurrences starting 06/26/2022 until 06/26/2022 [employer] Phone: Comment on above: Once for 1 Occurrences starting 06/27/19 until 06/26/2022 End: 01-16-2025 Urinalysis Urinalysis Lab Routine Stage 3a chronic kidney disease ([facility]) 1 Occurrences starting 01/17/2024 until 01/16/2025 [facility] Comment on above: 1 Occurrences starting 01/17/2024 until 01/16/2025 End: 01-16-2025 Vitamin D 25 hydroxy Vitamin D 25 hydroxy Lab Routine Stage 3a chronic kidney disease ([facility]) 1 Occurrences starting 01/17/2024 until 01/16/2025 [facility] Comment on above: 1 Occurrences starting 01/17/2024 until 01/16/2025 Immunizations Immunization Date Immunization Notes Care Provider [facility] 02-11-2023 influenza, injectabl e, quadrivalent, preservative free MD Fidel Abbott Work Phone: [facility] 02-11-2023 influenza virus vaccine, unspecified formulation Fidel Abbott MD Work Phone: [facility] 04-10-2017 influenza virus vaccine, unspecified formulation Jovanny VILLA [facility] Comment on above: Result Comment: 2022: VIS DATE: 11/02/2014 04-10-2017 influenza, injectabl e, quadrivalent, preservative free Fidel Abbott MD Work Phone: [facility] 01-28-2016 Influenza Vaccine, unspecified formulation Fidel Abbott MD Work Phone: [facility] 01-01-2015 influenza virus vaccine, unspecified formulation Jovanny VILLA [facility] 01-01-2015 influenza, seasonal, injectable MD Fidel Abbott Work Phone: [facility] 01-10-2014 influenza virus vaccine, unspecified formulation Jovanny VILLA [facility] Payers Date Payer Category Payer Self-pay [id number] 2022 [facility] Managed Care - PPO ANTHEM [id number] 2021 [facility] er [id number] 2021 Unknown BCBS BCBS xxxxxx [id number] 2021-Present [phone] [address] [place] [address] [id number]. [id number] 2015 Unknown [id number] 2006 Medicare [id number] [id number]. [id number] 1961 Unknown [id number] 2.16.840.1.994714.3.579.2. 593 1961 Unknown [id number] 2.16.840.1.025074.3.579.2. 593 1961 Unknown [id number] 2.16.840.1.314981.3.579.2. 593 1961 Unknown [id number] 2.16.840.1.093373.3.579.2. 173 1961 Unknown [id number] 2.16.840.1.512807.3.579.2. 173 1961 Unknown [id number] 2.16.840.1.466071.3.579.2. 173 1961 Unknown [id number] 2.16.840.1.938328.3.579.2. 173 1961 Unknown [id number] 2.16.840.1.367520.3.579.2. 173 1961 Unknown [id number] 2.16.840.1.212319.3.579.2. 173 1961 Unknown [id number] 2.16.840.1.722496.3.579.2. 173 1961 Unknown [id number] 2.16.840.1.978061.3.579.2. 173 1961 Unknown [id number] 2.16.840.1.967505.3.579.2. 1286 1961 Unknown [id number] 2.16.840.1.759134.3.579.2. 1286 1961 Unknown [id number] 2.16.840.1.139995.3.579.2. 1259 1961 Unknown [id number] 2.16.840.1.827103.3.579.2. 1259 1961 Unknown [id number] 2.16.840.1.230875.3.579.2. 1259 1961 Unknown [id number] 2.16.840.1.336773.3.579.2. 727 1959 Medicare [id number] 1959 Unknown [id number] 1959 Unknown [id number] Unknown [id number] 2.16.840.1.348422.3.579.2. 531 Unknown [id number] 2.16840.1.389153.3.579.2. 531 Unknown [id number] 2.16840.1.752488.3.579.2. 531 Unknown [id number] 2.16840.1.260406.3.579.2. 531 Unknown [id number] 2.16840.1.324837.3.579.2. 531 Social History Date Type Detail Facility Start: 01-27-2022 End: 02-23-2023 Tobacco smoking status NHIS Never smoked tobacco (finding) [facility] Start: 1960 Sex Assigned At Male F [facility] Start: 06-22-2022 End: 02-23-2023 Tobacco use and exposure Smokeless tobacco non-user [employer] Phone: Start: 06-22-2022 End: 07-14-2022 Alcohol intake Current non-drinker of alcohol (finding) [employer] Phone: Start: 1960 Sex Assigned At Not on file B ON [employer] Phone: Start: 06-12-2022 End: 06-22-2022 Exposure to SARS-CoV-2 (event) Not sure [employer] Start: 06-23-2022 History SDOH Alcohol Frequency 1 [employer] Phone: Start: 06-23-2022 History SDOH Alcohol Std Drinks 0 [employer] Phone: Tobacco smoking status Never [facility] Start: 04-29-2023 End: 10-17-2023 Sex Assigned At Male [facility] Start: 04-29-2023 End: 07-31-2024 Alcohol intake Lifetime non-drinker (finding) [facility] Start: 04-29-2023 End: 10-17-2023 History of Social function [facility] Start: 11-01-2014 End: 08-30-2024 Sex Male (finding) [facility] Do you belong to any clubs or organizations such as anabaptism groups, unions, fraternal or athletic groups, or [...] 06-04-2023 Wound debridement Collagen wound matrix dressing ([id number] FDA Start: 06-04-2023 Wound debridement Collagen wound matrix dressing ()[id number] FDA Start: 06-04-2023 Wound debridement EPIFIX MESH [...] 06-04-2023 Amputation, toe Collagen wound matrix dressing ()[id number] FDA Start: 02-10-2023 Graft Subst Resorbable Mini [facility] [id number] Start: 12-25-2016 Comment on above: Description: tobramy icin recostituted with 10ml normal saline ref # [id number] exp 07/27/2018 lot # [id number] Goals Date Patient Goal Desired Activity /State Functional Status Date Assessment Result Facility 11-09-2022 Functional Status N/A [facility] Clinical Notes 07-29-2021 to 08-15-2024 Note Date [...] with complication acute August 30, 2024 11:16am [facility] Work Phone: 1(600) 866-502905-20-2025 Evaluation note* Diagnosis Onset Date Resolution Status [...] 1 0:28am Cauda equina spinal cord injury [facility] August 15, 2024 10:28am [facility] Work Phone: 1(223) 860-593105-20-2025 Evaluation note* Diagnosis Onset Date Resolution Status [...] 1 0:28am Cauda equina spinal cord injury [facility] August 15, 2024 10:28am Bilateral lower extremity edema acut e August 30, 2024 11:16am Open wound of both legs with complication acute August 30, 2024 1 1:16am Diabetes mellitus due to underlying condition with diabetic neuropathy, wit acute September 10:30am Pressure injury of left isch ium, stage 4 acute October 02, 2024 1 0:30am Cauda equina spinal cord injury [facility] October 02, 2024 10:30am [facility] Work Phone: 1(435) 649-312105-05-2025 History of Present illness Narrative* Fidel Abbott MD - 07/31/2024 11:20 AM EDTAssociated Problem(s): Class 2 severe obesity due to excess calories with serious comorbidity and body mass index (BMI) of 36.0 to 36.9 in adult (CMS/[facility]) Weight loss indicated. * Fidel [...] Lipid panel PSA TSH documented in this encounterWestern [facility] [id number] Miscellaneous Notes* Telephone Encounter - Fatemeh Ant - 04/17/2024 1:56 PM EST Pt called to reschedule new pt appt due to lack of transportation. I informed him that we have no availability in [place] until [facility] July schedule opens up. He stated he will call back the first weekof April to reschedule. [facility] Telephone encounter Note* Telephone Encounter - Fatemeh Ant - 04/17/2024 1:56 PM EST Pt called to reschedule new pt appt due to lack of transportation. I informed him that we have no availability in [place] until [facility] July schedule opens up. He stated he will call back the first weekof April to reschedule. [facility]01-17-2025 Miscellaneous Notes* Telephone Encounter - Mary Conner CMA - 04/14/2024 3:23 PM EST Left message for patient to call the office back to confirm upcoming appointment 04/20 at 1:[address] Valdivia in [place]. Also stated that patient needs to get labs done prior to upcoming appointment documented in this encounterOhio[facility]01-17-2025 Telephone encounter Note* Telephone Encounter - Mary Conner CMA - 04/14/2024 3:23 PM EST Left message for patient to call the office back to confirm upcoming appointment 04/20 at 1:[address] Valdivia in [place]. Also stated that patient needs to get labs done prior to [facility] Miscellaneous Notes* Telephone Encounter - Mary Conner CMA - 04/06/2024 2:38 PM EST Left message for patient to call the office back to confirm upcoming appointment 04/13 at 2:[address] Valdivia in [place]. Also stated that patient needs to get labs done prior to upcoming appointment documented in this encounterOhio[facility]01-[facility]-2025 Telephone encounter Note* Telephone Encounter - Mary Conner CMA - 04/06/2024 2:38 PM EST Left message for patient to call the office back to confirm upcoming appointment 04/13 at 2:[address] Valdivia in [place]. Also stated that patient needs to get labs done prior to upcoming appointment [facility] CEIN [id number] Progress note Author Cathy Brar [facility] Note Date/Time March 14, 2024 11:23am [facility] [address] [place] [address] Wound Center Provider Note Signed Patient: Ganga Stinson MR#: [id number] : 1960 Acct:[id number] Age/Sex: 63 / M Copies to: MD [...] start?: 10 plus years Mode of Arrival/ Cellars Supervisor: Personal vehicle and Family Assistive Device Used [...] Itching Wound/Ulcer Sacrum: Bed Appearance: Beefy Red, [place], Rolled Edges and Yellow Percent of Wound [...] Ischium: Bed Appearance: Beefy Red, Bone Palpable, [place] and Yellow Percent of Wound Bed [...] Ischium: Bed Appearance: Beefy Red, Bone Palpable, [place], Rolled Edges and Yellow Percent of Wound Bed Granulated/Red: 90 Percent of Devitalized: 10 Length (cm): 0.5 Width (cm): 0.5 Depth (cm): 2.5 CM Sq: 0.250 Tunneling Position: 10:00 Tunneling Depth: 4 Surrounding Tissue Appearance: [place] and Macerated Surrounding Tissue Temp: Warm [...] underlying condition with diabetic neuropathy,unspecified; 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 Plan Continue with [...] MD Cathy Brar> 03/14/24 1123 [facility] Work Phone: 1(828) 782-908312-17-2024 Evaluation note* Diagnosis Onset Date Resolution Status [...] spinal cord injury chronic March 14 10:42am [facility] Work Phone: 1(900) 915-948712-17-2024 [place] [address] Wound Center Provider Note Signed Patient: Ganga Stinson MR#: [id number] : 1960 Acct:[id number] Age/Sex: 63 / M Copies to: MD [...] start?: 10 plus years Mode of Arrival/ Cellars Supervisor: Personal vehicle and Family Assistive Device Used [...] Itching Wound/Ulcer Sacrum: Bed Appearance: Beefy Red, [place], Rolled Edges and Yellow Percent of Wound [...] Ischium: Bed Appearance: Beefy Red, Bone Palpable, [place] and Yellow Percent of Wound Bed [...] Ischium: Bed Appearance: Beefy Red, Bone Palpable, [place], Rolled Edges and Yellow Percent of Wound Bed Granulated/Red: 90 Percent of Devitalized: 10 Length (cm): 0.5 Width (cm): 0.5 Depth (cm): 2.5 CM Sq: 0.250 Tunneling Position: 10:00 Tunneling Depth: 4 Surrounding Tissue Appearance: [place] and Macerated Surrounding Tissue Temp: Warm [...] MD DD/ 112 Signed By: 03/14/24 1123 [facility]11-12-2024 Progress note Author Cathy Brar [facility] Note Date/Time February 08, 2024 11:44am [facility] [address] [place] [address] Wound Center Provider Note Signed Patient: Ganga Stinson MR#: [id number] : 1960 Acct:[id number] Age/Sex: 63 / M Copies to: MD [...] start?: 10 plus years Mode of Arrival/ Cellars Supervisor: Personal vehicle and Family Assistive Device Used [...] Itching Wound/Ulcer Sacrum: Bed Appearance: Beefy Red, [place], Rolled Edges and Yellow Percent of Wound [...] Jelly Right Ischium: Bed Appearance: Beefy Red, [place] and Yellow Percent of Wound Bed [...] Odor Left Ischium: Bed Appearance: Beefy Red, [place], Rolled Edges and Yellow Percent of Wound [...] signed by MD Cathy Brar> 02/08/24 1144 [facility] Work Phone: [phone] Evaluation note* Diagnosis Onset Date Resolution Status [...] injury chronic February 07 10:48am [facility] Work Phone: 1(468) 338-478711-12-2024 [place] [address] Wound Center Provider Note Signed Patient: Ganga Stinson MR#: [id number] : 1960 Acct:[id number] Age/Sex: 63 / M Copies to: MD [...] start?: 10 plus years Mode of Arrival/ Cellars Supervisor: Personal vehicle and Family Assistive Device Used [...] Itching Wound/Ulcer Sacrum: Bed Appearance: Beefy Red, [place], Rolled Edges and Yellow Percent of Wound [...] Jelly Right Ischium: Bed Appearance: Beefy Red, [place] and Yellow Percent of Wound Bed [...] Odor Left Ischium: Bed Appearance: Beefy Red, [place], Rolled Edges and Yellow Percent of Wound [...] underlying condition with diabetic neuropathy,unspecified; 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 Podiatry following the patient's foot ulcers. Follow-up in 1 month See Instructions for Orders See Instructions for Orders See Wound Discharge Instructions for Orders: Dictated By: Cathy Brar MD DD/ 1141 Signed By: 02/08/24 1144 [facility]10-24-2024 History of Present illness Narrative * [...] and use hydroxyzine PRN. documented in this encounterWestern Missouri Medical [id number] Evaluation note* Diagnosis Stage 3a chronic kidney disease ([facility])- Primary documented in this encounter [facility]10-[facility]24 Miscellaneous Notes* Telephone Encounter - Fatemeh Cain - 01/12/2024 9:03 AM EDT LM to schedule new pt appt. documented in this encounterOhioHealth [facility]10-16-2024 Telephone encounter Note* Telephone Encounter - Fatemeh Cain - 01/12/2024 9:03 AM EDT SHAMEKA to schedule new pt appt. [facility]10-08-2024 Progress note Author Cathy Brar [facility] Note Date/Time January 04, 2024 11 :52am [facility] [address] [place] [address] Wound Center Provider Note Signed Patient: Ganga Stinson MR#: [id number] : 1960 Acct:[id number] Age/Sex: 63 / M Copies to: MD [...] start?: 10 plus years Mode of Arrival/ Cellars Supervisor: Personal vehicle and Family Assistive Device Used [...] Itching Wound/Ulcer Sacrum: Bed Appearance: Beefy Red, [place] and Yellow Percent of Wound Bed Granulated/Red: 90 Percent of Devitalized: 10 Length (cm): 2.9 Width (cm): 1.5 Depth (cm): 3 CM Sq: 4.350 Undermining Position: 360 Undermining Depth: 3.5 Surrounding Tissue Appearance: Bright Red and Rash/Irritation Surrounding Tissue Temp: Warm Drainage Amount: Large Drainage Description: Serosanguineous Drainage Odor: No Odor Right Ischium: Bed Appearance: Beefy Red, [place] and Yellow Percent of Wound Bed [...] Odor Left Ischium: Bed Appearance: Beefy Red, [place], Rolled Edges and Yellow Percent of Wound Bed Granulated/Red: 90 Percent of Devitalized: 10 Length (cm): 0.7 Width (cm): 0.8 Depth (cm): 2.9 CM Sq: 0.560 Tunneling Position: 10:00 Tunneling Depth: 3 Surrounding Tissue Appearance: [place] Surrounding Tissue Temp: Warm Drainage Amount: [...] underlying condition with diabetic neuropathy,unspecified; 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 Podiatry following the patient's foot ulcers. Follow-up in 1 month See Instructions for Orders See Instructions for Orders See Wound Discharge Instructions for Orders: Dictated By: Cathy Brar MD DD/ 1050 Signed By: <Electronically signed by MD Cathy Brar> 01/04/24 1052 [facility] Work Phone: 1(232) 163-710810-08-2024 [place] [address] Wound Center Provider Note Signed Patient: Ganga Stinson MR#: [id number] : 1960 Acct:[id number] Age/Sex: 63 / M Copies to: MD [...] start?: 10 plus years Mode of Arrival/ Cellars Supervisor: Personal vehicle and Family Assistive Device Used [...] Itching Wound/Ulcer Sacrum: Bed Appearance: Beefy Red, [place] and Yellow Percent of Wound Bed Granulated/Red: 90 Percent of Devitalized: 10 Length (cm): 2.9 Width (cm): 1.5 Depth (cm): 3 CM Sq: 4.350 Undermining Position: 360 Undermining Depth: 3.5 Surrounding Tissue Appearance: Bright Red and Rash/Irritation Surrounding Tissue Temp: Warm Drainage Amount: Large Drainage Description: Serosanguineous Drainage Odor: No Odor Right Ischium: Bed Appearance: Beefy Red, [place] and Yellow Percent of Wound Bed [...] Odor Left Ischium: Bed Appearance: Beefy Red, [place], Rolled Edges and Yellow Percent of Wound Bed Granulated/Red: 90 Percent of Devitalized: 10 Length (cm): 0.7 Width (cm): 0.8 Depth (cm): 2.9 CM Sq: 0.560 Tunneling Position: 10:00 Tunneling Depth: 3 Surrounding Tissue Appearance: [place] Surrounding Tissue Temp: Warm Drainage Amount: [...] MD DD/ 1050 Signed By: 01/04/24 1052 [facility]08-22-2024 History of Present illness Narrative * [...] panel CBC and differential documented in this encounterWestern Missouri Medical [id number] Progress note Author Cathy Brar [facility] Note Date/Time November 09, 2023 1: 07pm [facility] [address] [place] [address] Wound Center Provider Note Signed Patient: Ganga Stinson MR#: [id number] : 1960 Acct:[id number] Age/Sex: 63 / M Copies to: MD [...] his foot ulcers and he [facility]. Currently, [...] start?: 10 plus years Mode of Arrival/ Cellars Supervisor: Personal vehicle and Family Assistive Device Used [...] Sacrum: Bed Appearance: Beefy Red, Bone Palpable, [place] and Yellow Percent of Wound Bed Granulated/Red: 90 Percent of Devitalized: 10 Length (cm): 2.5 Width (cm): 2 Depth (cm): 3 CM Sq: 5.000 Undermining Position: 360 Undermining Depth: 4 Surrounding Tissue Appearance: Bright Red and Rash/Irritation Surrounding Tissue Temp: Warm Drainage Amount: Large Drainage Description: Serosanguineous Drainage Odor: No Odor Right Ischium: Bed Appearance: Beefy Red, [place] and Yellow Percent of Wound Bed [...] Odor Left Ischium: Bed Appearance: Beefy Red, [place], Rolled Edges and Yellow Percent of Wound Bed Granulated/Red: 90 Percent of Devitalized: 10 Length (cm): 0.7 Width (cm): 0.8 Depth (cm): 2.3 CM Sq: 0.560 Tunneling Position: 10:00 Tunneling Depth: 3 Surrounding Tissue Appearance: [place] Surrounding Tissue Temp: Warm Drainage Amount: [...] <Electronically signed by MD Cathy Brar> 11/09/[address] [place] [address] Work Phone: 1(862) 355-534608-13-2024 [place] [address] Wound Center Provider Note Signed Patient: Ganga Stinson MR#: [id number] : 1960 Acct:[id number] Age/Sex: 63 / M Copies to: MD [...] his foot ulcers and he currently does [facility] foot ulcers. Currently, [...] start?: 10 plus years Mode of Arrival/ Cellars Supervisor: Personal vehicle and Family Assistive Device Used [...] Sacrum: Bed Appearance: Beefy Red, Bone Palpable, [place] and Yellow Percent of Wound Bed Granulated/Red: 90 Percent of Devitalized: 10 Length (cm): 2.5 Width (cm): 2 Depth (cm): 3 CM Sq: 5.000 Undermining Position: 360 Undermining Depth: 4 Surrounding Tissue Appearance: Bright Red and Rash/Irritation Surrounding Tissue Temp: Warm Drainage Amount: Large Drainage Description: Serosanguineous Drainage Odor: No Odor Right Ischium: Bed Appearance: Beefy Red, [place] and Yellow Percent of Wound Bed [...] Odor Left Ischium: Bed Appearance: Beefy Red, [place], Rolled [place]ges and Yellow Percent of Wound Bed Granulated/Red: 90 Percent of Devitalized: 10 Length (cm): 0.7 Width (cm): 0.8 Depth (cm): 2.3 CM Sq: 0.560 Tunneling Position: 10:00 Tunneling Depth: 3 Surrounding Tissue Appearance: [place] Surrounding Tissue Temp: Warm Drainage Amount: [...] MD DD/ 1202 Signed By: 11/09/23 1207 [facility]07-09-2024 Progress note Author Cathy Brar [facility] Note Date/Time October 05, 2023 12:20 pm [facility] [address] [place] [address] Wound Center Provider Note Signed Patient: Ganga Stinson MR#: [id number] : 1960 Acct:[id number] Age/Sex: 63 / M Copies to: MD [...] is Dr. Abbott. Patient also sees a director medical science. Apparently he was to start on a new medication and will need to be on blood thinners because of the medication. Subjective Pain Buttock: Pain Intensity: 6 Wound/Ulcer History When did wound start?: 10 plus years Mode of Arrival/ Cellars Supervisor: Personal vehicle and Family Assistive Device Used [...] Itching Wound/Ulcer Sacrum: Bed Appearance: Beefy Red, [place] and Yellow Percent of Wound Bed Granulated/Red: 90 Percent of Devitalized: 10 Length (cm): 2.6 Width (cm): 1.5 Depth (cm): 2.9 CM Sq: 3.900 Undermining Position: 360 (deepest at 9) Undermining Depth: 4.5 Surrounding Tissue Appearance: Hyperpigmented Surrounding Tissue Temp: Warm Drainage Amount: Large Drainage Description: Serosanguineous Drainage Odor: No Odor Right Ischium: Bed Appearance: Beefy Red, Bone Palpable, [place] and Yellow Percent of Wound Bed Granulated/Red: 90 Percent of Devitalized: 10 Length (cm): 5 Width (cm): 7 Depth (cm): 3.5 CM Sq: 35.000 Undermining Position: 8-11 (deepest at 9) Undermining Depth: 3.7 Surrounding Tissue Appearance: Hyperpigmented Surrounding Tissue Temp: Warm Drainage Amount: Large Drainage Description: Serosanguineous Left Ischium: Bed Appearance: Beefy Red, [place] and Yellow Percent of Wound Bed [...] to start on new medications prescribed by director medical science. Patient and were told to monitor for evidence of bleeding from the wounds. Follow-up in about 1 month. See Instructions for Orders See Instructions for Orders See Wound Discharge Instructions for Orders: Dictated By: Cathy Brar MD DD/ 1115 Signed By: <Electronically signed by MD Cathy Brar> 10/05/23 [facility] Work Phone: 1(201) 955-211307-09-2024 [place] [address] Wound Center Provider Note Signed Patient: Ganga Stinson MR#: [id number] : 1960 Acct:[id number] Age/Sex: 63 / M Copies to: MD [...] is Dr. Abbott. Patient also sees a director medical science. Apparently he was to start on a new medication and will need to be on blood thinners because of the medication. Subjective Pain Buttock: Pain Intensity: 6 Wound/Ulcer History When did wound start?: 10 plus years Mode of Arrival/ Cellars Supervisor: Personal vehicle and Family Assistive Device Used [...] Itching Wound/Ulcer Sacrum: Bed Appearance: Beefy Red, [place] and Yellow Percent of Wound Bed Granulated/Red: 90 Percent of Devitalized: 10 Length (cm): 2.6 Width (cm): 1.5 Depth (cm): 2.9 CM Sq: 3.900 Undermining Position: 360 (deepest at 9) Undermining Depth: 4.5 Surrounding Tissue Appearance: Hyperpigmented Surrounding Tissue Temp: Warm Drainage Amount: Large Drainage Description: Serosanguineous Drainage Odor: No Odor Right Ischium: Bed Appearance: Beefy Red, Bone Palpable, [place] and Yellow Percent of Wound Bed Granulated/Red: 90 Percent of Devitalized: 10 Length (cm): 5 Width (cm): 7 Depth (cm): 3.5 CM Sq: 35.000 Undermining Position: 8-11 (deepest at 9) Undermining Depth: 3.7 Surrounding Tissue Appearance: Hyperpigmented Surrounding Tissue Temp: Warm Drainage Amount: Large Drainage Description: Serosanguineous Left Ischium: Bed Appearance: Beefy Red, [place] and Yellow Percent of Wound Bed [...] to start on new medications prescribed by director medical science. Patient and were told to monitor for evidence of bleeding from the wounds. Follow-up in about 1 month. See Instructions for Orders See Instructions for Orders See Wound Discharge Instructions for Orders: Dictated By: Cathy Brar MD DD/ 1115 Signed By: 10/05/23 1120 [facility]02-15-2024 Telephone encounter Note* Telephone Encounter - Sandhya Velasquez RN - 05/13/2023 3:00 PM EST Patient called to inquire about the antibiotic that was supposed to be sent after his 05/06 visit. Can you resend? Thank you! [facility] [id number] Miscellaneous Notes* Telephone Encounter - Sandhya Velasquez RN - 05/13/2023 3:00 PM EST Patient called to inquire about the antibiotic that was supposed to be sent after his 05/06 visit. Can you resend? Thank you! documented in this encounterWestern Missouri Medical CenterSfkfbdcrvy81-91-1041 History of Present illness Narrative* Jonathan Bah [...] unable to go to wound care at [facility] Patient also has Integra wound graft [...] home health. Patient currently going at [facility] for decubitus ulcer Patient still awaits MRI approval as had to be resubmitted due to need for new x-ray on previous visit in awaits MRI at [facility] . Referral has been sent to [facility] wound center with attempt to follow-up for [...] region for possible osteomyelitis to fibula at [facility] ASSESSMENT 12 weeks s/p left 4th and 5th ray amputation with incision and drainage and partial closure with single lobe flap Type 2 diabetic with paraplegia 1. Ulcer of left ankle, with necrosis of bone (HCC) (CMS/HCC) 2. Diabetes mellitus due to underlying condition with diabetic polyneuropathy, unspecified whether exterminator termite insulin use (CMS/HCC) 3. Acute complete paraplegia [...] oral antibiotics Patient to follow up with [facility] for decubitus ulcer and instructions given to contact [facility] for follow-up.. Skin flap area of [...] MRI Jonathan Bah DPM documented in this encounterWestern Missouri Medical [id number] Progress note Author Cathy Brar [facility] May 04, 2023 1:07pm Note Date/Time May 04, 2023 1 2:48pm [facility] [address] [place] [address] Wound Center Provider Note Signed Patient: Ganga Stinson MR#: [id number] : 1960 Acct:[id number] Age/Sex: 62 / M Copies to: MD [...] did wound start?: years Mode of Arrival/ Cellars Supervisor: Personal vehicle Assistive Device Used Today: Wheelchair [...] Itching Wound/Ulcer Right Lateral Ankle: Bed Appearance: [place] and Yellow Percent of Wound Bed [...] No Odor Right Medial Foot: Bed Appearance: [place] and Yellow Percent of Wound Bed Granulated/Red: 50 Percent of Devitalized: 50 Length (cm): 1.0 Width (cm): 1.0 Depth (cm): 0.3 CM Sq: 1.000 Surrounding Tissue Appearance: Hyperpigmented Surrounding Tissue Temp: Warm Drainage Amount: Moderate Drainage Description: Serosanguineous Drainage Odor: No Odor Sacrum: Bed Appearance: Beefy Red, [place] and Yellow Percent of Wound Bed Granulated/Red: 90 Percent of Devitalized: 10 Length (cm): 2.9 Width (cm): 1.5 Depth (cm): 2.5 CM Sq: 4.350 Undermining Position: 360 deepest at 9:00 Undermining Depth: 4.0 Surrounding Tissue Appearance: Hyperpigmented, Macerated and Callous Surrounding Tissue Temp: Warm Drainage Amount: Large Drainage Description: Serosanguineous Drainage Odor: No Odor Right Ischium: Bed Appearance: Beefy Red, [place] and Yellow Percent of Wound Bed Granulated/Red: 90 Percent of Devitalized: 10 Length (cm): 5.3 Width (cm): 7.5 Depth (cm): 4.0 CM Sq: 39.750 Surrounding Tissue Appearance: [place], Macerated and Callous Surrounding Tissue Temp: Warm Drainage Amount: Large Drainage Description: Serosanguineous Drainage Odor: No Odor Left Ischium: Bed Appearance: Beefy Red and [place] Percent of Wound Bed Granulated/Red: 100 Percent [...] underlying condition with diabetic neuropathy,unspecified; 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 Document Revised: 12/04/2020 Document Reviewed: 12/04/2020 [employer] Patient Education 2022 [employer]am. Follow Up Care 10/13/2022 11:18:02 With:ALLEN NAZARIO, Jovanny Christie, URL Address: [facility] [address] [place] [address]- [phone] When: Unknown Comments:sched cysto [facility] [place] 03-31-2023 History of Present illness Narrative* [...] 06/26/2022 12:01 PM EDT Physical Therapy Facility/Department: [facility] MED SURG Daily Treatment Note [...] 06/26/2022 12:00 PM EDT Occupational Therapy Facility/Department: [facility] MED SURG Daily Treatment Note [...] AM EDT [facility] [...] Crockett RN - 06/26/2022 3:00 AM EDT Piano Refinisher at bedside for wound dressing change- pt incontinent of bowels. See flow sheet for details. * Panchito Crockett RN - 06/26/2022 1:30 AM EDT Pt incontinent of stool. Piano Refinisher at bedside for wound change dressing per order- see flow sheet for details. * Panchito Crockett RN - 06/26/2022 12:50 AM EDT Patient at bedside for reassessment and vitals- see flow sheet for details. Pt remains alert and oriented c4-calm and cooperative. GoLYTELY at bedside and clinical writer encourages patient to consume fluid- pt validates understanding. Patient currently denying pain and discomfort. Denying any additional needs, call light placed within reach, bed in lowest position. Piano Refinisher encourages patient to call out for assistance. Will continue to monitor. * Panchito Crockett RN - 06/26/2022 12:45 AM EDT Piano Refinisher at bedside- pt incontinent of stool- wound dressing changed per order. See flow sheet. * Panchito Crockett RN - 06/25/2022 10:05 PM EDT Piano Refinisher at bedside to for wound dressing change per order. See MAR for details. * Eloise Lopez PTA - 06/25/2022 3:56 PM EDT Physical Therapy Facility/Department: [facility] MED SURG Daily Treatment Note [...] bed. Supine BLE PROM exercises in all [id number] ea. Seated EOB AROM in LAQ 2x [...] Time Out 1430 Minutes 28 Eloise Brickner, SALES REPRESENTATIVE GRAPHIC ART * Zoila Villafuerte PA-C - 06/25/2022 1:07 [...] never been a smoker. He saw a family assistant at [facility] 2 years ago in 2020. At that [...] follows with wound clinic at [facility]. Mr. Alloway also denied any [...] Paralysis of both lower limbs ([facility]) Paraplegia ([facility]) Type [...] BEADS performed by Gabriel Haile DPM at [facility] OR SD I&D BELOW FASCIA FOOT 1 BURSAL SPACE Right 04/10/2017 RIGHT ANKLE AND RIGHT HEEL DEBRIDEMENT INCISION AND DRAINAGE WITH CULTURES SENT performed by William Jimenez MD at [facility] OR SD OFFICE/OUTPT VISIT,PROCEDURE ONLY Right 06/14/2017 FOOT DEBRIDEMENT INCISION AND DRAINAGE-ANKLE INCLUDING BONE BIOPSY performed by Ro Husseint [facility] OR TOE AMPUTATION Right 12/25/2016 right fifth toe amputation with I&D, ATB beads per Dr. Haile VENA CAVA FILTER PLACEMENT patoka filter Social History: Social History Tobacco Use [...] of right ankle, stage 4 ([facility]) 06/24/2022 Open wound of right [...] Active Cardiac Condition No (decompensated HF, Arrhythmia, NH <3 weeks, severe valve disease) Risk Level [...] with the plan. Sincerely, Zoila Villafuerte PA-C [facility] Bag Bailer [address] [place], [place] [id number] , I believe that the risk of [...] Paralysis of both lower limbs ([facility]) Paraplegia ([facility]) Type [...] BEADS performed by Gabriel Haile DPM at [facility] OR SD I&D BELOW FASCIA FOOT 1 BURSAL SPACE Right 04/10/2017 RIGHT ANKLE AND RIGHT HEEL DEBRIDEMENT INCISION AND DRAINAGE WITH CULTURES SENT performed by William Jimenez MD at [facility] OR SD OFFICE/OUTPT VISIT,PROCEDURE ONLY Right 06/14/2017 FOOT DEBRIDEMENT INCISION AND DRAINAGE-ANKLE INCLUDING BONE BIOPSY performed by Ro Husseint [facility] OR TOE AMPUTATION Right 12/25/2016 [...] Matias Garcia MD, 5,000 Units at 06/23/22 4105 PE: VSS, Afebrile, NAD, A&O x 3, Aloof Labs: as above RLE ; lateral ankle ; FT+ ulcerative wound , +PTB IMP: stage 4 ankle decubitus, appaarent bone involvement Stable for minor bedside procedure Tx: see procedure notes P: see orders / AVS Yakov Min DPM 06/25/2022 12:28 PM * LAURENT Gomez - 06/25/2022 11:55 AM EDT Occupational Therapy Facility/Department: [facility] MED SURG Daily Treatment Note [...] MD 8:05 AM 06/25/2022 * Shelly MoralesShea, INVESTIGATOR VICE - WINDOWS CONSULTANT - 06/25/2022 7:34 AM EDT Images from [...] labs-Hgb 7.6 today Nutrition status: morbid obesity Tube Sorter consult initiated Hospital Prophylaxis: DVT: Heparin Stress Ulcer: na Disposition: Shared decision making: All test results, treatment options and disposition options were discussed with the patient today Social determinants of health that may impact management: none Code status: Full Code Disposition: Discharge plan is home [facility] Advanced Care Planning documentation: [x] I have [...] the patient's medical record. [DOES NOT SATISFY [facility] PERFORMANCE] Shelly Mondragon APRN - DOLLY , ESTELLE, GOLD BUYER-C [facility] 06/25/2022, 7:34 AM Shelly Mondragon APRN-DOLLY Associated attestation - Matias Garcia MD - 06/25/2022 7:34 PM EDT Images from the original note were not included. [address] , [place], [place], [address] Attestation Patient: Ganga Stinson Date of Admission: 06/22/2022 4:21 PM Hospital Day # 3 Date of Evaluation: 06/25/2022 I personally evaluated and examined the patient [id number] in conjunction with the PA/GOLD BUYER and agree with the management and dispostition of the patient. Please see the PA/GOLD BUYER's note for full details.My kohli findings are: [...] with the plan as outlined in the GOLD BUYER/PA's note Disposition: Discharge plan is pending Please note that this chart was generated using voice recognition [employer] dictation software. Although every effort was made to ensure the accuracy of this automated english professor, some errors in english professor may have occurred. Matias Garcia MD 06/25/2022 [...] Samayoa RN - 06/25/2022 12:52 AM EDT Piano Refinisher at bedside at this time to perform [...] Samayoa RN - 06/24/2022 6:43 PM EDT Piano Refinisher at bedside at this time to perform [...] 06/24/2022 4:57 PM EDT Physical Therapy Facility/Department: [facility] MED SURG Daily Treatment Note [...] Time Out 1643 Minutes 19 Martita Tam, SALES REPRESENTATIVE GRAPHIC ART * Heri Valdez RN - 06/24/2022 4:00 [...] never been a smoker. He saw a family assistant at [facility] 2 years ago in 2020. At that [...] follows with wound clinic at [facility]. Mr. Stinson also denied any current or recent chest pain, abdominal pain, bleeding problems, problems with his medications or any other concerns at this time. Past Medical History: Diagnosis Date Abnormal EKG 06/23/2022 Acute kidney injury superimposed on CKD (HCC) 06/23/2022 Cauda equina syndrome ([facility]) 2004 Depression Hypertension MRSA (methicillin resistant staph aureus) culture positive 04/10/2017 right ankle Open wound of right ankle 12/30/2016 Paralysis of both lower limbs ([facility]) Paraplegia ([facility]) Type [...] BEADS performed by Gabriel Haile DPM at [facility] OR SD I&D BELOW FASCIA FOOT 1 BURSAL SPACE Right 04/10/2017 RIGHT ANKLE AND RIGHT HEEL DEBRIDEMENT INCISION AND DRAINAGE WITH CULTURES SENT performed by William Jimenez MD at [facility] OR SD OFFICE/OUTPT VISIT,PROCEDURE ONLY Right 06/14/2017 FOOT DEBRIDEMENT INCISION AND DRAINAGE-ANKLE INCLUDING BONE BIOPSY performed by Ro Husseint [facility] OR TOE AMPUTATION Right 12/25/2016 right fifth toe amputation with I&D, ATB beads per Dr. Haile VENA CAVA FILTER PLACEMENT patoka filter Social History: Social History Tobacco Use [...] with the plan. Sincerely, Zoila Villafuerte PA-C [facility] Bag Bailer [address] [place] [address] , I believe that the risk of [...] 06/24/2022 10:32 AM EDT Occupational Therapy Facility/Department: [facility] MED SURG Daily Treatment Note [...] prep on 06/25/2022 6pm MD Audra [facility] * Shelly Mondragon APRN - DOLLY [...] IRon Monitor labs Nutrition status: morbid obesity Tube Sorter consult initiated Hospital Prophylaxis: DVT: Heparin Stress [...] MIPS PERFORMANCE] ESTELLE Katz CNP , ESTELLE, GOLD BUYER-C Hospitalist Medicine 06/24/2022, 7:34 AM Blood Transfusion [...] from the original note were not included. [address] , [place], [place], [address] Attestation Patient: Ganga Stinson Date of Admission: 06/22/2022 4:21 PM Hospital Day # 2 Date of Evaluation: 06/24/2022 I personally evaluated and examined the patient [id number] in conjunction with the PA/GOLD BUYER and agree with the management and dispostition of the patient. Please see the PA/GOLD BUYER's note for full details.My kohli findings are: [...] with the plan as outlined in the GOLD BUYER/PA's note Disposition: Discharge plan is pending, GI, Cardiology, Urology consultations, Transfuse if pRBC <7, wound care to the affected area and monitor electrolytes. Please note that this chart was generated using voice recognition [employer] dictation software. Although every effort was made to ensure the accuracy of this automated english professor, some errors in english professor may have occurred. Matias Garcia MD 06/24/2022 9:39 PM * Geneva Samayoa RN - 06/24/2022 2:46 AM EDT Spoke with Dr. Garcia and informed him of critical lab levels. No new orders. * Geneva Samayoa RN - 06/24/2022 2:15 AM EDT Piano Refinisher at bedside at this time to perform [...] this time and patient transferred over to [facility]. * Geneva Samayoa RN - 06/23/2022 9:00 PM EDT Piano Refinisher at bedside at this time to perform [...] 06/23/2022 4:35 PM EDT Physical Therapy Facility/Department: [facility] Daily Treatment Note [...] 06/23/2022 4:31 PM EDT Occupational Therapy Facility/Department: [facility] Daily Treatment Note [...] 06/23/2022 2:08 PM EDT Physical Therapy Facility/Department: [facility] Physical Therapy Initial [...] Ambulation Assistance: Non-ambulatory Transfer Assistance: Independent Active Stable Manager: No Additional Comments: Pt. with hx of [...] 06/23/2022 11:26 AM EDT Occupational Therapy Facility/Department: [facility] Occupational Therapy Initial [...] Ambulation Assistance: Non-ambulatory Transfer Assistance: Independent Active Stable Manager: No Additional Comments: Pt. with hx of [...] to Severe Extremities (+ 2 pitting BLE) [employer] Laboratory Director Strength: Not Performed Nutrition Assessment: Altered [...] Anthropometric Measures: Height: 5' 11 (180.3 cm) [place] Body Weight (IBW): 172 lbs (78 kg) [...] Used for Energy Requirements: Current Energy (kcal/day): 7189-2238 (20-23/kg) Weight Used for Protein Requirements: [place] Protein (g/day): 109-133g (1.4-1.7g/kg) Method Used for [...] Nutrition Supplement [address], [place] Contact: [phone] * Panchito Crockett RN - 06/23/2022 1:00 AM EDT Piano Refinisher at bedside for reassessment-see flow sheet for details. Patient remains alert and oriented x4-calm and cooperative. Patient continues to deny pain and discomfort. Incontinence and stewart care provided. Denying any additional needs, call light placed within reach, bed in lowest position and alarm engaged to promote patient safety. Will continue to monitor. * Panchito Crockett RN - 06/23/2022 12:00 AM EDT Piano Refinisher attempted to place rowe catheter at this time- unable to advance 16 FR catheter. Rn Bar Back notified and will attempt- will continue to monitor. Patient reports no pain or discomfort. * Panchito Crockett RN - 06/22/2022 11:12 PM EDT Piano Refinisher phoned Dr. Garcia at this informing physician [...] continue to monitor. documented in this encounterBON Kopo K[facility] Phone: [phone] 938-383903-31-2023 Hospital Discharge instructions* Discharge Instructions* Fabby Felder [...] most local grocery stores, pharmacies, and chain [employer]stores. If you have any questions about your diet or nutrition, call the hospital and ask for the dietitian. Regular documented in this encounterBON [employer] Work Phone: [phone] 430-135503-07-2023 Progress note Author Cathy Brar [facility] June 02, 2022 12:14pm Note Date/Time June 02, 2022 12:1 4pm [facility] [address] [place] [address] Wound Center Provider Note Signed Patient: Ganga Stinson MR#: [id number] : 1960 Acct:[id number] Age/Sex: 61 / M Copies to: MD Fidel Whitmore MD~ HPI Date of Visit Date of Visit: Date of Service: 06/02/2022 Time of Service: 12:01 Narrative HPI: Patient is being followed for his chronic bilateral ischial, sacral and right foot ulcers. His is doing his dressing changes. Patient has been having some right hip pain and underwent a CT scan in [place] on 03/14/2022. This showed slight deepening of [...] Sacrum: Bed Appearance: Beefy Red, Bone Palpable, [place] and Yellow Percent of Wound Bed Granulated/Red: 90 Percent of Devitalized: 10 Length (cm): 3.5 Width (cm): 1.8 Depth (cm): 2 CM Sq: 6.300 Undermining Position: 360 Undermining Depth: 3 Surrounding Tissue Appearance: [place] Surrounding Tissue Temp: Warm Drainage Amount: Large Drainage Description: Serosanguineous Drainage Odor: No Odor Left Ischium: Bed Appearance: Beefy Red, Bone Palpable, [place] and Yellow Percent of Wound Bed Granulated/Red: 90 Percent of Devitalized: 10 Length (cm): 7 Width (cm): 6 Depth (cm): 5.5 CM Sq: 42.000 Surrounding Tissue Appearance: [place] Surrounding Tissue Temp: Warm Drainage Amount: Large Drainage Description: Serosanguineous Drainage Odor: No Odor Right Ischium: Bed Appearance: Beefy Red, Bone Palpable, [place] and Yellow Percent of Wound Bed Granulated/Red: 90 Percent of Devitalized: 10 Length (cm): 0.7 Width (cm): 1 Depth (cm): 4 CM Sq: 0.700 Surrounding Tissue Appearance: [place] Surrounding Tissue Temp: Warm Drainage Amount: Moderate Drainage Description: Serosanguineous Drainage Odor: No Odor Left Ankle: Bed Appearance: Brown, [place] and Yellow Percent of Wound Bed Granulated/Red: 5 Percent of Devitalized: 95 Length (cm): 3.5 Width (cm): 2.5 Depth (cm): 0.1 CM Sq: 8.750 Surrounding Tissue Appearance: [place] Surrounding Tissue Temp: Warm Drainage Amount: Moderate Drainage Description: Serosanguineous Drainage Odor: No Odor Medial Ankle: Bed Appearance: Brown, [place] and Yellow Percent of Wound Bed Granulated/Red: 50 Percent of Devitalized: 50 Length (cm): 3.5 Width (cm): 4 Depth (cm): 0.1 CM Sq: 14.000 Surrounding Tissue Appearance: [place] Surrounding Tissue Temp: Warm Drainage Amount: Moderate Drainage Description: Serosanguineous Drainage Odor: No Odor Medial Foot: Bed Appearance: Black Dry, Brown, [place] and [place] Percent of Wound Bed Granulated/Red: 5 Percent of Devitalized: 95 Length (cm): 2 Width (cm): 1.2 Depth (cm): 0.1 CM Sq: 2.400 Surrounding Tissue Appearance: [place] Surrounding Tissue Temp: Warm Drainage Amount: [...] Diabetes mellitus type: type 2 Diabetes mellitus group home insulin use:with group home use Diabetes mellitus complication status: with [...] <Electronically signed by MD Cathy Brar> 06/02/22 [address] [facility] Work Phone: [phone]) 555-761212-06-2022 Progress note Author Cathy Brar [facility] March 03, 2022 12:06pm Note Date/Time March 03, 2022 1 2:06pm [facility] [address] [place] [address] Wound Center Provider Note Signed Patient: Ganga Stinson MR#: [id number] : 1960 Acct:[id number] Age/Sex: 61 / M Copies to: MD [...] Ischium: Bed Appearance: Beefy Red, Bone Palpable, [place] and Yellow Percent of Wound Bed [...] Bed Appearance: Beefy Red, Bone Palpable, Devitalized, [place], Yellow and [place] Percent of [...] 2% Jelly Right Buttock: Bed Appearance: Devitalized, [place] and Yellow Percent of Wound Bed Granulated/Red: 100 Percent of Devitalized: 0 Length (cm): 0 Width (cm): 0 Depth (cm): 0 CM Sq: 0.000 Surrounding Tissue Appearance: Hyperpigmented Surrounding Tissue Temp: Warm Drainage Amount: None Drainage Description: Serosanguineous Drainage Odor: No Odor Lidocaine Applied Topically: 2% Jelly Right Lower Medial Leg: Bed Appearance: [place] and Yellow Percent of Wound Bed [...] Diabetes mellitus type: type 2 Diabetes mellitus group home insulin use:with exterminator termite use Diabetes mellitus complication status: with skin complications Diabetes mellitus complication detail: with other skin ulcer Qualified Code(s): E11.622 - Type 2 diabetes mellitus with other skin ulcer; 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 Code(s): E11.9 - [...] <Electronically signed by MD Cathy Brar> 03/03/22 [address] [facility] Work Phone: 1([phone] 268-752412-02-2022 NotePROCEDURE: XR HIP RT 2 3V W [...] Electronically authenticated by: KHADAR MEDINA Date: 2022-02-27 07:17[facility]11-01-2022 Progress note Author Cathy Brar [facility] January 27, 2022 12:11pm Note Date/Time January 27, 2022 1 2:11pm [facility] [address] [place] [address] Wound Center Provider Note Signed Patient: Ganga Stinson MR#: [id number] : 1960 Acct:[id number] Age/Sex: 61 / M Copies to: MD [...] 360 Undermining Depth: 3.5 Surrounding Tissue Appearance: [place] and [place] Surrounding Tissue Temp: Warm Drainage Amount: Large Drainage Description: Serosanguineous Drainage Odor: No Odor Lidocaine Applied Topically: 2% Jelly Right Heel: Bed Appearance: Beefy Red, [place] and Yellow Percent of Wound Bed Granulated/Red: 50 Percent of Devitalized: 50 Length (cm): 1.0 Width (cm): 1.4 Depth (cm): 0.1 CM Sq: 1.400 Surrounding Tissue Appearance: Peeling and Dryness Surrounding Tissue Temp: Warm Drainage Amount: Small Drainage Description: Serosanguineous Drainage Odor: No Odor Lidocaine Applied Topically: 2% Jelly Right Ischium: Bed Appearance: Beefy Red, Bone Palpable, [place] and Yellow Percent of Wound Bed [...] Bed Appearance: Beefy Red, Bone Palpable, Devitalized, [place], Yellow and [place] Percent of [...] 2% Jelly Right Buttock: Bed Appearance: Devitalized, [place] and Yellow Percent of Wound Bed Granulated/Red: 100 Percent of Devitalized: 0 Length (cm): 0 Width (cm): 0 Depth (cm): 0 CM Sq: 0.000 Surrounding Tissue Appearance: [place] Surrounding Tissue Temp: Warm Drainage Amount: None Drainage Description: Serosanguineous Drainage Odor: No Odor Lidocaine Applied Topically: 2% Jelly Right Lower Medial Leg: Bed Appearance: [place] and Yellow Percent of Wound Bed [...] Diabetes mellitus type: type 2 Diabetes mellitus group home insulin use:with exterminator termite use Diabetes mellitus complication status: with skin complications Diabetes mellitus complication detail: with other skin ulcer Qualified Code(s): E11.622 - Type 2 diabetes mellitus with other skin ulcer; 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 Code(s): E11.9 - [...] MD Cathy Brar> 01/27/22 [address] [facility] Work Phone: [phone]) [phone] Progress note Author Cathy Brar [facility] December 23, 2021 12:32pm Note Date/Time December 23, 2021 12:32pm [facility] [address] [place] [address] Wound Center Provider Note Signed Patient: Ganga Stinson MR#: [id number] : 1960 Acct:[id number] Age/Sex: 61 / M Copies to: MD [...] Bed Appearance: Beefy Red, Bone Palpable, Devitalized, [place] and Yellow Percent of Wound Bed Granulated/Red: 95 Percent of Devitalized: 5 Length (cm): 3.2 Width (cm): 2 Depth (cm): 2.5 CM Sq: 6.400 Undermining Position: 10-4:00 Undermining Depth: 5 Surrounding Tissue Appearance: [place] and Macerated Surrounding Tissue Temp: Warm Drainage Amount: Large Drainage Description: Serosanguineous Drainage Odor: No Odor Lidocaine Applied Topically: 2% Jelly Right Heel: Bed Appearance: Beefy Red, Devitalized, Epithelial Tissue or Bridge, [place] and Yellow Percent of Wound Bed Granulated/Red: 90 Percent of Devitalized: 10 Length (cm): 3 Width (cm): 8 Depth (cm): 0.1 CM Sq: 24.000 Surrounding Tissue Appearance: Peeling and Dryness Surrounding Tissue Temp: Warm Drainage Amount: Large Drainage Description: Serosanguineous Drainage Odor: No Odor Lidocaine Applied Topically: 2% Jelly Right Ischium: Bed Appearance: Beefy Red, Bone Palpable, Devitalized, Epithelial Tissue or Bridge, [place] and Yellow Percent of Wound Bed Granulated/Red: 95 Percent of Devitalized: 5 Length (cm): 5 Width (cm): 5 Depth (cm): 5 CM Sq: 25.000 Undermining Position: 12-6:00 Undermining Depth: 1 Surrounding Tissue Appearance: Macerated Surrounding Tissue Temp: Warm Drainage Amount: Large Drainage Description: Serosanguineous Drainage Odor: No Odor Lidocaine Applied Topically: 2% Jelly Left Ischium: Bed Appearance: Beefy Red, Bone Palpable, Devitalized, [place] and Yellow Percent of Wound Bed Granulated/Red: 95 Percent of Devitalized: 5 Length (cm): 1.6 Width (cm): 1.6 Depth (cm): 3.5 CM Sq: 2.560 Undermining Position: 10-3:00 Undermining Depth: 3.5 Surrounding Tissue Appearance: Macerated Surrounding Tissue Temp: Warm Drainage Amount: Moderate Drainage Description: Serosanguineous Drainage Odor: No Odor Lidocaine Applied Topically: 2% Jelly Right Buttock: Bed Appearance: Devitalized, [place] and Yellow Percent of Wound Bed Granulated/Red: 95 Percent of Devitalized: 5 Length (cm): 1.5 Width (cm): 0.5 Depth (cm): 0.1 CM Sq: 0.750 Surrounding Tissue Appearance: [place] and Callous Surrounding Tissue Temp: Warm Drainage Amount: Small Drainage Description: Serosanguineous Drainage Odor: No Odor Lidocaine Applied Topically: 2% Jelly Right Lower Lateral Leg: Bed Appearance: Beefy Red, Devitalized, [place] and Yellow Percent of Wound Bed Granulated/Red: 10 Percent of Devitalized: 90 Length (cm): 0 Width (cm): 0 Depth (cm): 0 CM Sq: 0.000 Surrounding Tissue Appearance: Hyperpigmented Surrounding Tissue Temp: Warm Drainage Amount: None Drainage Description: Serosanguineous Drainage Odor: No Odor Lidocaine Applied Topically: 2% Jelly Right Lower Medial Leg: Bed Appearance: Devitalized, Epithelial Tissue or Bridge, [place] and Yellow Percent of Wound Bed [...] Diabetes mellitus type: type 2 Diabetes mellitus group home insulin use:with group home use Diabetes mellitus complication status: with [...] MD Cathy Brar> 12/23/21 [address] [facility] Work Phone: [phone] 450-461808-23-2022 Progress note Author Cathy Brar [facility] November 18, 2021 11:55am Note Date/Time November 18, 2021 11 :55am [facility] [address] [place] [address] Wound Center Provider Note Signed Patient: Ganga Stinson MR#: [id number] : 1960 Acct:[id number] Age/Sex: 61 / M Copies to: MD [...] Bed Appearance: Beefy Red, Bone Palpable, Devitalized, [place] and Yellow Percent of Wound Bed Granulated/Red: 75 Percent of Devitalized: 25 Length (cm): 3.5 Width (cm): 2.0 Depth (cm): 2.5 CM Sq: 7.000 Undermining Position: 360 (deepest at 3) Undermining Depth: 3.5 Surrounding Tissue Appearance: Hyperpigmented Surrounding Tissue Temp: Warm Drainage Amount: Large Drainage Description: Serosanguineous Drainage Odor: No Odor Lidocaine Applied Topically: 2% Jelly Right Heel: Bed Appearance: Devitalized, [place] and Yellow Percent of Wound Bed Granulated/Red: 1 Percent of Devitalized: 99 Length (cm): 1.6 Width (cm): 2.3 Depth (cm): 0.1 CM Sq: 3.680 Surrounding Tissue Appearance: Hyperpigmented Surrounding Tissue Temp: Warm Drainage Amount: Large Drainage Description: Serosanguineous Drainage Odor: No Odor Lidocaine Applied Topically: 2% Jelly Right Ischium: Bed Appearance: Beefy Red, Bone Palpable, Devitalized, Epithelial Tissue or Bridge, [place] and Yellow Percent of Wound Bed [...] Bed Appearance: Beefy Red, Bone Palpable, Devitalized, [place] and Yellow Percent of Wound Bed Granulated/Red: 90 Percent of Devitalized: 10 Length (cm): 2.0 Width (cm): 2.0 Depth (cm): 3.5 CM Sq: 4.000 Undermining Position: 9-11:00 Undermining Depth: 4.0 Surrounding Tissue Appearance: Hyperpigmented Surrounding Tissue Temp: Warm Drainage Amount: Moderate Drainage Description: Serosanguineous Drainage Odor: No Odor Lidocaine Applied Topically: 2% Jelly Right Buttock: Bed Appearance: Beefy Red, Devitalized, [place] and Yellow Percent of Wound Bed Granulated/Red: 95 Percent of Devitalized: 5 Length (cm): 2.4 Width (cm): 1.0 Depth (cm): 0.1 CM Sq: 2.400 Surrounding Tissue Appearance: Hyperpigmented Surrounding Tissue Temp: Warm Drainage Amount: Moderate Drainage Description: Serosanguineous Drainage Odor: No Odor Lidocaine Applied Topically: 2% Jelly Right Lower Lateral Leg: Bed Appearance: Beefy Red, Devitalized, [place] and Yellow Percent of Wound Bed Granulated/Red: 10 Percent of Devitalized: 90 Length (cm): 1.3 Width (cm): 1.4 Depth (cm): 0.1 CM Sq: 1.820 Surrounding Tissue Appearance: Hyperpigmented Surrounding Tissue Temp: Warm Drainage Amount: Moderate Drainage Description: Serosanguineous Drainage Odor: No Odor Lidocaine Applied Topically: 2% Jelly Right Lower Medial Leg: Bed Appearance: Black Dry, Devitalized, Epithelial Tissue or Bridge, [place] and Yellow Percent of Wound Bed [...] mellitus type: type 2 Diabetes mellitus exterminator termite insulin use:with group home use Diabetes mellitus complication status: with skin complications Diabetes mellitus complication detail: with other skin ulcer Qualified Code(s): E11.622 - Type 2 diabetes mellitus with other skin ulcer; 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 Code(s): E11.9 - [...] <Electronically signed by MD Cathy Brar> 11/18/[address] [place] [address] Work Phone: [phone]) [phone] Progress note Author Cathy Brar [facility] October 21, 2021 11:44am Note Date/Time October 21, 2021 11:4 4am [facility] [address] [place] [address] Wound Center Provider Note Signed Patient: Ganga Stinson MR#: [id number] : 1960 Acct:[id number] Age/Sex: 61 / M Copies to: MD [...] Bed Appearance: Beefy Red, Bone Palpable, Devitalized, [place] and Yellow Percent of Wound Bed Granulated/Red: 75 Percent of Devitalized: 25 Length (cm): 4.2 Width (cm): 3.0 Depth (cm): 3.0 CM Sq: 12.600 Undermining Position: 360 (deepest at 3) Undermining Depth: 3.5 Surrounding Tissue Appearance: Hyperpigmented Surrounding Tissue Temp: Warm Drainage Amount: Large Drainage Description: Serosanguineous Drainage Odor: No Odor Lidocaine Applied Topically: 2% Jelly Right Heel: Bed Appearance: Devitalized, [place] and Yellow Percent of Wound Bed Granulated/Red: 50 Percent of Devitalized: 50 Length (cm): 2.3 Width (cm): 3.2 Depth (cm): 0.1 CM Sq: 7.360 Surrounding Tissue Appearance: Hyperpigmented Surrounding Tissue Temp: Warm Drainage Amount: Large Drainage Description: Serosanguineous Drainage Odor: No Odor Lidocaine Applied Topically: 2% Jelly Right Ischium: Bed Appearance: Beefy Red, Bone Palpable, Devitalized, Epithelial Tissue or Bridge, [place] and Yellow Percent of Wound Bed [...] Bed Appearance: Beefy Red, Bone Palpable, Devitalized, [place] and Yellow Percent of Wound Bed Granulated/Red: 90 Percent of Devitalized: 10 Length (cm): 3.0 Width (cm): 1.6 Depth (cm): 4.5 CM Sq: 4.800 Undermining Position: 9-11:00 Undermining Depth: 1.0 Surrounding Tissue Appearance: Hyperpigmented Surrounding Tissue Temp: Warm Drainage Amount: Moderate Drainage Description: Serosanguineous Drainage Odor: No Odor Lidocaine Applied Topically: 2% Jelly Right Buttock: Bed Appearance: Beefy Red, Devitalized, [place] and Yellow Percent of Wound Bed Granulated/Red: 80 Percent of Devitalized: 20 Length (cm): 2.2 Width (cm): 1.1 Depth (cm): 0.1 CM Sq: 2.420 Surrounding Tissue Appearance: Hyperpigmented Surrounding Tissue Temp: Warm Drainage Amount: Moderate Drainage Description: Serosanguineous Drainage Odor: No Odor Lidocaine Applied Topically: 2% Jelly Right Lower Lateral Leg: Bed Appearance: Beefy Red, Devitalized, [place] and Yellow Percent of Wound Bed Granulated/Red: 10 Percent of Devitalized: 90 Length (cm): 1.3 Width (cm): 1.4 Depth (cm): 0.1 CM Sq: 1.820 Surrounding Tissue Appearance: Hyperpigmented Surrounding Tissue Temp: Warm Drainage Amount: Moderate Drainage Description: Serosanguineous Drainage Odor: No Odor Lidocaine Applied Topically: 2% Jelly Right Lower Medial Leg: Bed Appearance: Black Dry, Devitalized, [place] and Yellow Percent of Wound Bed Granulated/Red: 80 Percent of Devitalized: 20 Length (cm): 1.6 Width (cm): 2.5 Depth (cm): 0.1 CM Sq: 4.000 Surrounding Tissue Appearance: Hyperpigmented Surrounding Tissue Temp: Warm Drainage Amount: Moderate Drainage Description: Serosanguineous Drainage Odor: No Odor Lidocaine Applied Topically: 2% Jelly Right Foot: Bed Appearance: Beefy Red, Devitalized, Epithelial Tissue or Bridge, [place] and Yellow Percent of Wound Bed [...] mellitus type: type 2 Diabetes mellitus exterminator termite insulin use:with group home use Diabetes mellitus complication status: with [...] signed by MD Cathy Brar> 10/21/21 114[address] [facility] Work Phone: 1(421) 461-955406-21-2022 Progress note Author Cathy Brar [facility] September 16, 2021 11:55am Note Date/Time September 16, 2021 11:5 1am [facility] [address] [place] [address] Wound Center Provider Note Signed Patient: Ganga Stinson MR#: [id number] : 1960 Acct:[id number] Age/Sex: 61 / M Copies to: MD [...] Wound/Ulcer Sacrum: Bed Appearance: Bone Palpable, Devitalized, [place] and Yellow Percent of Wound Bed [...] Heel: Bed Appearance: Black Moist, Brown, Devitalized, [place] and Yellow Percent of Wound Bed Granulated/Red: 95 Percent of Devitalized: 5 Length (cm): 3.4 Width (cm): 5.1 Depth (cm): 0.1 CM Sq: 17.340 Surrounding Tissue Appearance: Hyperpigmented Surrounding Tissue Temp: Warm Drainage Amount: Large Drainage Description: Serosanguineous Drainage Odor: No Odor Lidocaine Applied Topically: 2% Jelly Right Ischium: Bed Appearance: Beefy Red, Devitalized, Epithelial Tissue or Bridge, [place] and Yellow Percent of Wound Bed Granulated/Red: 90 Percent of Devitalized: 10 Length (cm): 5.1 Width (cm): 5.5 Depth (cm): 4 CM Sq: 28.050 Undermining Position: 1-3:00 Undermining Depth: 1.5 Surrounding Tissue Appearance: Hyperpigmented Surrounding Tissue Temp: Warm Drainage Amount: Large Drainage Description: Serosanguineous Drainage Odor: No Odor Lidocaine Applied Topically: 2% Jelly Left Ischium: Bed Appearance: Beefy Red, Bone Palpable, Devitalized, [place] and Yellow Percent of Wound Bed Granulated/Red: 90 Percent of Devitalized: 10 Length (cm): 3.9 Width (cm): 1.8 Depth (cm): 5 CM Sq: 7.020 Undermining Position: 9-11:00 Undermining Depth: 2.2 Surrounding Tissue Appearance: Hyperpigmented Surrounding Tissue Temp: Warm Drainage Amount: Moderate Drainage Description: Serosanguineous Drainage Odor: No Odor Lidocaine Applied Topically: 2% Jelly Right Buttock: Bed Appearance: Beefy Red, Devitalized, [place] and Yellow Percent of Wound Bed Granulated/Red: 99 Percent of Devitalized: 1 Length (cm): 2.3 Width (cm): 0.9 Depth (cm): 0.2 CM Sq: 2.070 Surrounding Tissue Appearance: Hyperpigmented Surrounding Tissue Temp: Warm Drainage Amount: Moderate Drainage Description: Serosanguineous Drainage Odor: No Odor Lidocaine Applied Topically: 2% Jelly Right Lower Lateral Leg: Bed Appearance: Beefy Red, Devitalized, [place] and Yellow Percent of Wound Bed Granulated/Red: 20 Percent of Devitalized: 80 Length (cm): 3.8 Width (cm): 2.3 Depth (cm): 0.1 CM Sq: 8.740 Surrounding Tissue Appearance: Hyperpigmented Surrounding Tissue Temp: Warm Drainage Amount: Moderate Drainage Description: Serosanguineous Drainage Odor: No Odor Lidocaine Applied Topically: 2% Jelly Right Lower Medial Leg: Bed Appearance: Black Dry, Devitalized, [place] and Yellow Percent of Wound Bed Granulated/Red: 75 Percent of Devitalized: 25 Length (cm): 2.5 Width (cm): 2.7 Depth (cm): 0.2 CM Sq: 6.750 Surrounding Tissue Appearance: Hyperpigmented Surrounding Tissue Temp: Warm Drainage Amount: Moderate Drainage Description: Serosanguineous Drainage Odor: No Odor Lidocaine Applied Topically: 2% Jelly Right Foot: Bed Appearance: Beefy Red, Devitalized, Epithelial Tissue or Bridge, [place] and Yellow Percent of Wound Bed [...] Diabetes mellitus type: type 2 Diabetes mellitus group home insulin use:with group home use Diabetes mellitus complication status: with skin complications Diabetes mellitus complication detail: with other skin ulcer Qualified Code(s): E11.622 - Type 2 diabetes mellitus with other skin ulcer; 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 Code(s): E11.9 - [...] <Electronically signed by MD Cathy Brar> 09/16/21 [address] [facility] Work Phone: 1([phone]) 214-224305-03-2022 Progress note Author Cathy Brar [facility] July 29, 2021 12:33pm Note Date/Time July 29, 2021 12:33p m [facility] [address] [place] [address] Wound Center Provider Note Signed Patient: Ganga Stinson MR#: [id number] : 1960 Acct:[id number] Age/Sex: 61 / M Copies to: MD [...] down Wound/Ulcer Sacrum: Bed Appearance: Bone Palpable, [place] and Yellow Percent of Wound Bed [...] Right Heel: Bed Appearance: Black Moist, Brown, [place] and Yellow Percent of Wound Bed Granulated/Red: 15 Percent of Devitalized: 85 Length (cm): 6.0 Width (cm): 9.0 Depth (cm): 0.5 CM Sq: 54.000 Surrounding Tissue Appearance: Hyperpigmented Surrounding Tissue Temp: Warm Drainage Amount: Large Drainage Description: Serosanguineous Drainage Odor: No Odor Lidocaine Applied Topically: 2% Jelly Right Ischium: Bed Appearance: Beefy Red, Epithelial Tissue or Bridge, [place] and Yellow Percent of Wound Bed Granulated/Red: 50 Percent of Devitalized: 50 Length (cm): 9.3 Width (cm): 7.9 Depth (cm): 5.2 CM Sq: 73.470 Undermining Position: 360 (deepest at 7) Undermining Depth: 2.3 Surrounding Tissue Appearance: Hyperpigmented Surrounding Tissue Temp: Warm Drainage Amount: Large Drainage Description: Serosanguineous Drainage Odor: No Odor Lidocaine Applied Topically: 2% Jelly Left Ischium: Bed Appearance: [place] and Yellow Percent of Wound Bed Granulated/Red: 50 Percent of Devitalized: 50 Length (cm): 1.7 Width (cm): 1.5 Depth (cm): 3.5 CM Sq: 2.550 Undermining Position: 3-8 Undermining Depth: 4.5 Surrounding Tissue Appearance: Hyperpigmented Surrounding Tissue Temp: Warm Drainage Amount: Moderate Drainage Description: Serosanguineous Drainage Odor: No Odor Lidocaine Applied Topically: 2% Jelly Right Buttock: Bed Appearance: Beefy Red, [place] and Yellow Percent of Wound Bed Granulated/Red: 75 Percent of Devitalized: 25 Length (cm): 6.6 Width (cm): 2.0 Depth (cm): 0.1 CM Sq: 13.200 Surrounding Tissue Appearance: Hyperpigmented Surrounding Tissue Temp: Warm Drainage Amount: Moderate Drainage Description: Serosanguineous Drainage Odor: No Odor Lidocaine Applied Topically: 2% Jelly Right Lower Lateral Leg: Bed Appearance: Beefy Red, [place] and Yellow Percent of Wound Bed Granulated/Red: 50 Percent of Devitalized: 50 Length (cm): 1.8 Width (cm): 1.5 Depth (cm): 0.1 CM Sq: 2.700 Surrounding Tissue Appearance: Hyperpigmented Surrounding Tissue Temp: Warm Drainage Amount: Moderate Drainage Description: Serosanguineous Drainage Odor: No Odor Lidocaine Applied Topically: 2% Jelly Right Lower Medial Leg: Bed Appearance: Black Dry, [place] and Yellow Percent of Wound Bed [...] Diabetes mellitus type: type 2 Diabetes mellitus group home insulin use:with exterminator termite use Diabetes mellitus complication status: with skin complications Diabetes mellitus complication detail: with other skin ulcer Qualified Code(s): E11.622 - Type 2 diabetes mellitus with other skin ulcer; 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 Code(s): E11.9 - [...] will attempt to obtain that note from family assistant in [place]. See Instructions for Orders See Instructions for Orders See Wound Discharge Instructions for Orders: Patient may require serial debridement to remove devitalized tissue and encourage granulation. Dictated By: Cathy Brar MD DD/ [id number] Signed By: <Electronically signed by MD Cathy Brar> 07/29/21 1233 [facility] Work Phone: Evaluation + Plan note No data available for this section [facility] evaluation note* Diagnosis Onset Date Resolution Status Right hip pain acute Stage IV pressure ulcer of sacral region acute Unstageable pressure ulcer of right heel acute Cauda equina spinal cord injury chronic Diabetes chronic Pressure ulcer of left hip, stage 3 resolved Pressure ulcer of right hip, stage 3 resolved [facility] Work Phone: Evaluation note* Diagnosis Neurogenic bladder Neurogenic bladder, NOS documented in this encounter [facility] Work Phone: evaluation note* Diagnosis Neurogenic bladder Neurogenic bladder, NOS documented in this encounter [employer] Phone: [email or web address] note* Diagnosis Hyperkalemia- Primary Hyperpotassemia Acute kidney [...] of neurogenic bladder documented in this encounter [employer] Phone: [email or web address] note* Diagnosis Acute kidney injury (HCC) Acute kidney failure, unspecified Iron deficiency anemia, unspecified iron deficiency anemia type documented in this encounter [employer] Phone: evaluation note* Diagnosis Onset Date Resolution Status Pressure injury of left ischium, stage 4 acute Pressure injury of right ischium, stage 4 acute Pressure ulcer of right foot, stage 2 acute Right hip pain acute 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 Diabetes [facility] Work Phone: Evaluation note* Diagnosis Cauda equina syndrome (HCC) Cauda equina syndrome without mention of neurogenic bladder Neurogenic bladder Neurogenic bladder, NOS Urinary retention Retention of urine, unspecified Urinary incontinence without sensory awareness Incontinence without sensory awareness documented in this encounter [facility] [employer] note* Diagnosis Cellulitis of left foot- Primary Ulcer of left ankle, with necrosis of bone (HCC) ([facility]) Diabetes mellitus due to underlying condition with diabetic polyneuropathy, unspecified whether exterminator termite insulin use ([facility]/HCC) Acute complete paraplegia ([facility]/HCC) Acute osteomyelitis of left fibula ([facility]/HCC) Foot ulcer, right, with fat layer exposed ([facility]) Venous insufficiency Unspecified venous (peripheral) insufficiency documented in this encounter [facility] HealthcareEvaluation note* Diagnosis Abscess of toe, right- Primary documented in this encounter [facility] HealthcareEvaluation note* Diagnosis Onset Date Resolution Status [id number] acute Foot ulcer with fat layer exposed acute Stage IV pressure ulcer of right buttock acute 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 buttock, stage 3 chronic [facility] Work Phone: Evaluation note* Diagnosis Type 2 diabetes mellitus with hyperglycemia, without long-term current use of insulin ([facility]/HCC)- Primary Dyslipidemia (CMS/HCC) Other and unspecified hyperlipidemia Benign hypertension (CMS/HCC) Essential hypertension, benign Major depressive disorder, recurrent episode, mild (HCC) ([facility]/HCC) Major depressive disorder, recurrent episode, mild Incontinence overflow, urine Overflow incontinence Chronic superficial 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 Type 2 diabetes mellitus with hyperglycemia, without long-term current use of insulin ([facility]/HCC)- Primary Benign hypertension (CMS/HCC) Essential hypertension, benign Major depressive disorder, recurrent episode, mild (HCC) (CMS/HCC) Major depressive disorder, recurrent episode, mild Incontinence overflow, urine Overflow incontinence Pruritus Unspecified pruritic disorder Chronic kidney disease, stage 3a (HCC) ([facility]) Encounter for long-term (current) use of medications Encounter for long-term (current) use of other medications Cauda equina syndrome ([facility]) Cauda equina syndrome without mention of neurogenic bladder Urticaria- Primary Unspecified urticaria documented in this encounter [facility] HealthcareEvaluation note* Diagnosis Type 2 diabetes [...] disorder Chronic kidney disease, stage 3a (HCC) ([facility]) Encounter for long-term (current) use of medications Encounter for long-term (current) use of other medications Cauda equina syndrome ([facility]/HCC) Cauda equina syndrome without mention of neurogenic bladder Urticaria- Primary Unspecified urticaria Pruritus Unspecified pruritic disorder documented in this encounter [facility] HealthcareEvaluation note* Diagnosis Type 2 diabetes mellitus with hyperglycemia, without long-term current use of insulin ([facility])- Primary Benign hypertension ([facility]) Essential hypertension, benign Major depressive disorder, recurrent episode, mild (HCC) ([facility]) Major depressive disorder, recurrent episode, mild Incontinence overflow, urine Overflow incontinence Pruritus Unspecified pruritic disorder Chronic kidney disease, stage 3a (HCC) ([facility]) Encounter for long-term (current) use of medications Encounter for long-term (current) use of other medications Cauda equina syndrome ([facility]) Cauda equina syndrome without mention of neurogenic bladder documented in this encounter [facility] HealthcareEvaluation note* Diagnosis Type 2 diabetes mellitus with hyperglycemia, without long-term current use of insulin ([facility])- Primary Dyslipidemia ([facility]) Other and unspecified hyperlipidemia Benign hypertension ([facility]) Essential hypertension, benign Major depressive disorder, recurrent episode, mild (HCC) ([facility]) Major depressive disorder, recurrent episode, mild Incontinence overflow, urine Overflow incontinence Chronic superficial 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 Type 2 diabetes mellitus with hyperglycemia, without long-term current use of insulin ([facility])- Primary Benign hypertension ([facility]) Essential hypertension, benign Major depressive disorder, recurrent episode, mild (HCC) ([facility]) Major depressive disorder, recurrent episode, mild Incontinence overflow, urine Overflow incontinence Pruritus Unspecified pruritic disorder Chronic kidney disease, stage 3a (HCC) ([facility]) Encounter for long-term (current) use of medications Encounter for long-term (current) use of other medications Cauda equina syndrome ([facility]) Cauda equina syndrome without mention of neurogenic bladder Urticaria- Primary Unspecified urticaria Type 2 diabetes mellitus with hyperglycemia, without long-term current use of insulin ([facility])- Primary Benign hypertension ([facility]) Essential hypertension, benign Major depressive disorder, recurrent episode, mild (HCC) ([facility]) Major depressive disorder, recurrent episode, mild Incontinence overflow, urine Overflow incontinence Chronic superficial 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 Urticaria Unspecified urticaria Pruritus Unspecified pruritic disorder Annual physical exam Routine general medical examination at a health care facility Chronic kidney disease, stage 3a (HCC) ([facility]) Class 2 severe obesity due to excess calories with serious comorbidity and body mass index (BMI) of 36.0 to 36.9 in adult ([facility]) Type 2 diabetes mellitus with other specified complication Hyperlipidemia, unspecified (CMS/HCC) Pressure ulcer of right heel, unstageable ([facility]) Type 2 diabetes mellitus with other skin ulcer (CODE) Paraplegia, unspecified Diabetes mellitus due to underlying condition with diabetic polyneuropathy ([facility]) documented in this encounter [facility] HealthcareEvaluation note* Diagnosis Type 2 diabetes [...] pruritic disorder Chronic kidney disease, stage 3a ([facility]) Encounter for long-term [...] care facility Chronic kidney disease, stage 3a ([facility]) Class 2 severe obesity due to excess calories with serious comorbidity and body mass index (BMI) of 36.0 to 36.9 in adult ([facility]) Type 2 diabetes mellitus with other specified complication (HCC) Hyperlipidemia, unspecified Pressure ulcer of right heel, unstageable (CMS-HCC) Type 2 diabetes mellitus with other skin ulcer (CODE) (HCC) Paraplegia, unspecified (HCC) Diabetes mellitus due to underlying condition with diabetic polyneuropathy (HCC) Type 2 diabetes mellitus with hyperglycemia, without long-term current use of insulin (HCC) documented in this encounter [facility] HealthcareEvaluation note* Diagnosis Type 2 diabetes [...] pruritic disorder Chronic kidney disease, stage 3a ([facility]) Encounter for long-term (current) use of medications Encounter for long-term (current) use of other medications Cauda equina syndrome ([facility]) Cauda equina syndrome [...] care facility Chronic kidney disease, stage 3a ([facility]) Class 2 severe obesity due to excess calories with serious comorbidity and body mass index (BMI) of 36.0 to 36.9 in adult ([facility]) Type 2 diabetes mellitus with other specified complication (HCC) Hyperlipidemia, unspecified Pressure ulcer of right heel, unstageable ([facility]) Type 2 diabetes mellitus with other skin ulcer (CODE) ([facility]) Paraplegia, unspecified (HCC) Diabetes mellitus due to underlying condition with diabetic polyneuropathy ([facility]) Primary hypertension Unspecified essential hypertension Benign hypertension Essential hypertension, benign Type 2 diabetes mellitus with hyperglycemia, without long-term current use of insulin (HCC) Dyslipidemia Other and unspecified hyperlipidemia documented in this encounter [facility] HealthcareHospital Discharge instructions Additional Instructions DISCHARGE [...] operative site FOLLOW UP Phone numbers: Office [phone] [facility] Work Phone: Hospital Discharge instructions No data available for this section [facility] Hospital Discharge instructions Additional Instructions Wound/Ulcer Instructions/Orders Left Ischium: Dressing: Cleanse with Dakins or saline, saline on 4X4 gauze packing or kerlix, ABD, Kerlix, drawtex, Secure/wrap: Skin prep prior to adhesive [facility]: [facility] [email or web address] Work Phone: InstructionsNot on filedocumented in this encounter [facility] SystemProgress note No data available for this section [facility] reason for referral (narrative)No reason for referral [facility] Work Phone: Summary Purpose Family History [...] Fibula Osteomyelitis, Diabetes, Ulcerative Reason for Visit [id number] Foot ulcer with fat layer exposed 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 Cauda equina spinal cord injury Pressure ulcer of left buttock, stage 3 Chief Complaint Open Wound Left Fibula Osteomyelitis, Diabetes, Ulcerative Unknown Reason for Visit [id number] Foot ulcer with fat layer exposed Stage [...] EKG 12 Lead Angeles Nagy MD [address], [address] [place] [address] Referral ID Status Reason Start Date Expiration Date V isits Requested Visits Authorized [id number] Pending Review 06/22/2022 06/22/2023 1 1 Specialty Diagnoses / Procedures Referred By Contac t Referred To Contact Radiology Diagnoses Cauda equina syndrome (HCC) Neurogenic bladder Urinary retention Urinary incontinence without sensory awareness Procedures US RENAL COMPLETE Ashlee Erwin, INVESTIGATOR VICE - WINDOWS CONSULTANT [address] [place] [address] Referral ID Status Reason Start Date Expiration Date Visits Re quested Visits Authorized [id number] Open 09/18/2022 09/18/2023 1 1 Additional Source Comments (unrecognized sect ion and content) No Status Records FoundNo Status Records FoundNo Status Records FoundNo Status Records FoundNo Status Records FoundNo Status Records FoundNo Status Records Found INFORMATION SOURCE (unrecogn ized section and content) DATE CREATED AUTHOR 09/21/2017 [facility] DATE CREATED AUTHOR AUTHOR'S ORGANIZ ATION 04/08/2022 [facility] [place] [facility] DATE CREATED AUTHOR AUTHOR'S ORGANIZ ATION 09/27/2022 [facility] DATE CREATED AUTHOR AUTHOR'S ORGANIZ ATION 10/22/2023 [facility] DATE CREATED AUTHOR AUTHOR'S ORGANIZ ATION 08/03/2024 [facility] EPIC DATE CREATED AUTHOR AUTHOR'S ORGANIZ ATION 12/06/[address] [facility] DATE CREATED AUTHOR AUTHOR'S ORGANIZ ATION 12/09/2024 [facility] Care Teams (unrecognized sec tion and content) [...] Active Cathy Brar MD Attending Provider Active Chart Calculator Relationship Specialty Start Date End Date Fidel Abbott MD PCP - General 07/03/15 Chart Calculator Relationship Specialty Start Date End Date Fidel Abbott MD PCP - General 07/03/15 Chart Calculator Relationship Specialty Start Date End Date Fidel Abbott MD PCP - General 07/03/15 Chart Calculator Relationship Specialty Start Date End Date Fidel Abbott MD PCP - General 07/03/15 Chart Calculator Relationship Specialty Start Date End Date Fidel Abbott MD PCP - General 07/03/15 Chart Calculator Relationship Specialty Start Date End Date Fidel Abbott MD PCP - General Family Medicine 12/10/22 Fidel Abbott MD [address] [place] [address] [facility] 03/29/23 Chart Calculator Relationship Specialty Start Date End Date Fidel Abbott MD [facility] 12/10/22 Fidel Abbott MD [address] [place] [address] [facility] 03/29/23 Chart Calculator Relationship Specialty Start Date End Date Fidel Abbott MD [address] [place] [address] [facility] 03/29/23 Fidel Abbott MD [address] [place] [address] [facility] 05/12/23 Team Status: Inactive Member [...] July 08, 2023 End: July 08, 2023 Chart Calculator Relationship Specialty Start Date End Date Fidel Abbott MD [facility] General 12/28/16 Chart Calculator Relationship Specialty Start Date End Date Fidel Abbott MD [address] [place] [address] PCP - [facility] [employer] 02/26/23 Fidel Abbott MD [address] [place] [phone] PCP - General Family Medicine 11/18/23 Chart Calculator Relationship Specialty Start Date End Date Fidel Abbott MD [address] [place] [address] PCP - [facility] [employer] 02/26/23 Fidel Abbott MD [address] [place] [phone] PCP - General Family Medicine 11/18/23 Team [...] Provider Active S tart: February 08, 2024 Chart Calculator Relationship Specialty Start Date End Date Fidel Abbott MD [address] [place] [address] PCP - [facility] [facility] [employer] 02/26/23 Fidel Abbott MD [address] [place] [address] PCP - General Family Medicine 11/18/23 Chart Calculator Relationship Specialty Start Date End Date Fidel Abbott MD [address] [place] [address] PCP - [facility] [facility] [employer] 02/26/23 Fidel Abbott MD [address] [place] [address] PCP - General Family Medicine 11/18/23 Chart Calculator Relationship Specialty Start Date End Date Fidel Abbott MD [address] [place] [address] PCP - [place] [employer] 02/26/23 Fidel Abbott MD [address] [place] [address] PCP - General Family Medicine 11/18/23 Chart Calculator Relationship Specialty Start Date End Date Fidel Abbott MD PCP - General 12/28/16 Chart Calculator Relationship Specialty Start Date End Date Fidel Abbott MD PCP - General 12/28/16 Chart Calculator Relationship Specialty Start Date End Date Fidel Abbott MD [address] [place] [address] PCP - [place] [facility] [employer] 02/26/23 Fidel Abbott MD [address] [place] [address] PCP - General Family Medicine 11/18/23 Fidel Abbott MD [address] [place] [address] PCP - [facility] 05/05/24 Chart Calculator Relationship Specialty Start Date End Date Fidel Abbott MD [address] [place] [address] PCP - [place] [employer] 02/26/23 Fidel Abbott MD [address] [place] [address] PCP - General Family Medicine 11/18/23 Fidel Abbott MD [address] [place] [address] PCP - [employer] 05/05/24 Chart Calculator Relationship Specialty Start Date End Date Fidel Abbott MD [address] [place] [address] PCP - [place] [employer] 02/26/23 Fidel Abbott MD [address] [place] [address] PCP - General Family Medicine 11/18/23 Fidel Abbott MD [address] [place] [address] PCP - [employer] 05/05/24 Chart Calculator Relationship Specialty Start Date End Date Fidel Abbott MD [address] [place] [address] PCP - General Family Medicine 11/18/23 Fidel Abbott MD [address] [place] [address] PCP - [employer] 05/05/24 Alvin Gonzalez [...] August 30, 2024 End: August 30, 2024 Chart Calculator Relationship Specialty Start Date End Date Fidel Abbott MD [address] [place] [address] PCP - General Family Medicine 11/18/23 Team [...] October 02, 2024 End: October 02, 2024 Chart Calculator Relationship Specialty Start Date End Date Fidel Abbott MD [address] [place] [address] PCP - General Family Medicine 11/18/23 Chart Calculator Relationship Specialty Start Date End Date Fidel Abbott MD [address] [place] [address] PCP - General Family Medicine 11/18/23 Chart Calculator Relationship Specialty Start Date End Date Fidel Abbott MD [address] [place] [place] [address] PCP - General Family Medicine 11/18/23 Goals [...] kidney injury (HCC) Matias Garcia MD [address] [place] [address] [facility] [address] [place] [address] Referral ID Status Reason Start Date Expiration Date Visits Re quested Visits Authorized [id number] 1 1 Specialty Diagnoses / Procedures Referred By Farzaneh t Referred To Contact Radiology Diagnoses Cauda equina syndrome (HCC) Neurogenic bladder Urinary retention Urinary incontinence without sensory awareness Procedures US RENAL COMPLETE Ashlee Erwin, INVESTIGATOR VICE - WINDOWS CONSULTANT [address] [place] [address] Referral ID Status Reason Start Date Expiration Date Visits Re quested Visits Authorized [id number] Open 09/18/2022 09/18/2023 1 1 Reason Comments [...] Valdez RN) 0812 (MAR Hold - Provider: [facility] [employer] - Reason: Unreviewed Transfer Orders)0900 (Automatically Held - Provider: Cammy Autoh[employer])0959 ([facility] Unhold - Provider: Dragan Voss RN)1233 (Given - Provider: June Rocio) citalopram (CELEXA) tablet 40 mg 40 mg, Oral, DAILY, First dose on Wed06/23/22 at 0900, Until Discontinued 0907 (Given - Provider: Heri Valdez RN) 0723 (Given - Provider: Heri Valdez RN) 0812 (MAR Hold - Provider: [facility] [employer] - Reason: Unreviewed Transfer Orders)0900 (Automatically Held - Provider: Cammy Autohold)0959 ([facility] Unhold - Provider: Dragan Voss RN)1235 [...] June Rocio)2045 (Due - Provider: Linda Ibrahim [facility]) fenofibrate (TRIGLIDE) tablet 160 mg 160 mg, [...] been cleared of remaining blood product. 0812 ([facility] Hold - Pro vider: [facility] [employer] - Reason: Unreviewed Transfer Orders)0959 ([facility] Unhold - Provider: Dragan Voss RN) acetaminophen (TYLENOL) suppository 650 mg(Linked Group 1) 650 mg, Rectal, EVERY 6 HOURS PRN, Starting on Wed06/22/22 at 2017, Until Discontinued, Pain Mild (1-3), Fever, For temp greater than 100.4 F (38 C), Administer if oral route cannot be used. 0812 ([facility] Pro vider: [facility] [employer] - Reason: Unreviewed Transfer Orders)0959 ([facility] Unhold - Provider: Dragan Voss RN) acetaminophen (TYLENOL) tablet 650 mg(Linked Group 1) 650 mg, Oral, EVERY 6 HOURS PRN, Starting on Wed06/22/22 at 2017, Until Discontinued, Pain Mild (1-3), Fever, For temp greater than 100.4 F (38 C), Maximum dose of acetaminophen is 4000 mg from all sources in 24 hours. 0812 ([facility] Pro vider: [facility] [employer] - Reason: Unreviewed Transfer Orders)0959 ([facility] Unhold - Provider: Dragan Voss RN) ondansetron (ZOFRAN) injection 4 mg(Linked Group 2) 4 mg, IntraVENous, EVERY 6 HOURS PRN, Starting on Wed06/22/22 at 2017, Until Discontinued, Nausea, Vomiting, Administer if oral route cannot be used. 0812 ([facility] Hold - Pro vider: [facility] [employer] - Reason: Unreviewed Transfer Orders)0959 ([facility] Unhold - Provider: Dragan Voss RN) ondansetron (ZOFRAN-ODT) disintegrating tablet 4 mg(Linked Group 2) 4 mg, Oral, EVERY 8 HOURS PRN, Starting on Wed06/22/22 at 2017, Until Discontinued, Nausea, Vomiting 0812 ([facility] Hold - Pro vider: [facility] [employer] - Reason: Unreviewed Transfer Orders)0959 ([facility] Unhold - Provider: Dragan Voss RN) polyethylene glycol (GLYCOLAX) packet 17 g 17 g, Oral, DAILY PRN, Starting on Wed06/22/22 at 2017, Until Discontinued, Constipation, First line therapy for constipation 0812 ([facility] Hold - Pro vider: [facility] [employer] - Reason: Unreviewed Transfer Orders)0959 ([facility] Unhold - Provider: Dragan Voss RN) sodium chloride flush 0.9 % injection 10 mL 10 mL, IntraVENous, PRN, Starting on Wed06/22/22 at 2017, Until Discontinued, Line Care, After every IV line use 0812 ([facility] Hold - Pro vider: [facility] [employer] - Reason: Unreviewed Transfer Orders)0959 ([facility] Unhold - Provider: Dragan Voss RN) [...] BE BASED ON THE PRIMARY CLINICAL RECORDS. [facility]. provides no warranty or guarantee of the accuracy or completeness of information in this document.
--- NOTE | 2025-01-01 11:11 | XR_ITS ---
[place] [address] Patient Name: JOEL STINSON MRN: [id number] date: 1960 Sex: M Assigned Patient Location: [facility] Current Patient Location: Accession/Order Number: [id number] Exam Date: 01/01/2025 11:30 Report Date: 01/01/2025 12:11 At the request of: JESUS HERNANDES DPSam Procedure: XR tibia fibula RT 2V RIGHT TIBIA AND FIBULA - - 2 views CLINICAL HISTORY: Open Wound, Cellulitis COMPARISON: None FINDINGS: Soft tissue swelling is present. Vascular calcifications. Bones are grossly demineralized. Degenerative changes involving the visualized knee joint and ankle mortise. No acute bony process is seen. XR/XR tibia fibula RT 2V IMPRESSION: SOFT TISSUE SWELLING. NO DEFINITIVE ACUTE BONY PROCESS. Impression dictated by: Oumar Crowder Jr., D.O. 01/01/2025 12:11 PM Dictation Location: [facility] Electronically authenticated by: [id number] Y Date: 01/01/2025 12:11
--- NOTE | 2025-01-01 11:11 | XR_ITS ---
[place] [id number] Patient Name: JOEL STINSON MRN: [id number] date: 1960 Sex: M Assigned Patient Location: [facility] Current Patient Location: Accession/Order Number: [id number] Exam Date: 01/01/2025 11:30 Report Date: 01/01/2025 12:10 At the request of: JESUS HERNANDES DPSam Procedure: XR foot LT min 3V LEFT FOOT - 3 views CLINICAL HISTORY: Open Wound, Cellulitis COMPARISON: None FINDINGS: Diffuse soft tissue swelling is noted. No soft tissue gas is noted. The previously amputations involving the fourth and fifth digits with residual proximal metatarsals. No definite acute bony process or plain film evidence of osteomyelitis. Bones are grossly demineralized. XR/XR foot LT min 3V IMPRESSION: DIFFUSE SOFT TISSUE SWELLING WITH PARTIAL AMPUTATIONS OF THE FOURTH AND FIFTH DIGITS. NO DEFINITIVE ACUTE BONY PROCESS OR PLAIN FILM EVIDENCE OF OSTEOMYELITIS. Impression dictated by: Oumar Crowder Jr., D.O. 01/01/2025 12:10 PM Dictation Location: [facility] Electronically authenticated by: [id number] Y Date: 01/01/2025 12:10
[2025-01-01 11:19] LABS: Hemoglobin 7.2 g/dL (14.0-18.0); Immature Granulocytes Abs Auto 0.12 10^3/uL (0.00-0.03); Immature Granulocytes Pct Auto 0.9 % (0.0-0.5); Lymphocytes Absolute Auto 1.4 10^3/uL (1.2-3.8); Mean Corpuscular HGB Conc 30.3 g/dL (29.9-35.2); Mean Corpuscular Hemoglobin 24.9 pg (25.9-34.0); Mean Corpuscular Volume 82.4 fL (80.0-94.0); Platelet Count 383 10^3/uL (150-450); Red Blood Count 2.89 10^6/uL (4.70-6.10); White Blood Count 13.2 10^3/uL (4.0-11.0)
[2025-01-01 12:01] LABS: Anion Gap 15.2; Blood Urea Nitrogen 47.0 mg/dL (7.0-18.0); Calcium 8.5 mg/dL (8.5-10.1); Carbon Dioxide 22.8 mmol/L (21.0-32.0); Chloride 105 mmol/L (98-107); Estimated GFR (African America 34 (>=60 mL/min/1.73m^2); Estimated GFR (Non-African Ame 28 (>=60 mL/min/1.73m^2); Glucose 194 mg/dL (74-106); Potassium 5.0 mmol/L (3.5-5.1); Sodium 138 mmol/L (136-145)
[2025-01-01 12:45] LABS: Hematocrit 23.8 % (42.0-54.0)
== END 2025-01-01 10:58 | disposition home or self-care (01) ==
LOC: RAD 10:58
PROVIDERS: PCP Family Medicine; Visit Provider Podiatrist Foot & Ankle Surgery
DX: L03.818 Cellulitis of other sites (principal); B99.8 Other infectious disease
CPT/HCPCS: 36415; 73590; 73630; 80048; 85025

== ENCOUNTER 2025-01-03 09:40 | Outpatient (OUT) | payer BC, MEDICARE, SELFPAY ==
--- OUTSIDE RECORDS SUMMARY | 2025-01-03 10:00 | XMS_ITS | CCD ---
Author Organization [facility] Care Team Providers Care 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 Name Role Phone WESTONMICHAELA Unavailable Unavailable NADERER, FIDEL LIEBERMAN Unavailable Unavailabl e AOUAD, THIAGO Sy Unavailable Unavailable BLOOD, GANGA Gutiérrez Unavailable Unavailable BRAMBILA, JAI Chowdhury Unavailable Unavailable SCHNICATHYSALES TRAINER, WILLIAM Unavailable Unavaila ble SHASHA, KHADAR Murphy [...] NADERER, DR FIDEL Tellez Primary Care Unavailable FARMINGTON, DR KHADAR Edwards Consulting Unavailable BRAR, DR [...] Referring Unavailable KATYEREFIDEL Christie Primary Care Physician [phone] Milena NAZARIO, Fidel Primary Care Provider [phone] Fidel Abbott MD Unavailable Fidel Abbott MD Primary Care Provider MD Fidel Abbott Primary Care Provider MD Cathy Brar Attending Provider CRISTIANA Bah Attending Provider [phone] CRISTIANA Bahena Attending Provider Khadar Guerrero Referring Unavailable MILENA, FIDEL Primary Care Unavailable FIDEL ABBOTT Referring Unavailable Fidel Abbott MD Primary Care Provider Fidel [...] Unavailable Fidel Abbott MD Primary Care Provider [phone] Cathy Brar MD Attending Provider [phone] Latha CAICEDO-C, Tami Christie Attending Provider Aleta, [...] Unavailabl e Milena, Fidel Primary Care Unavailable AGNIE CHRISTY Attending Unavailable Allergies Allergy Classification Reported Allergen(s) Allergy Type Date of Onset Reaction(s) Facility (11 sources) Vancomycin; Translations: [VANCOMYCIN] Drug Allergy 6 Shut kidneys down [facility] (20 sources) Vancomycin Drug Allergy 6 Other, Unknown, Other (See Comments) [facility] (20 sources) omadacycline; Translations: [omadacycl] Drug allergy 3 Renal pain (finding) [facility] (8 sources) ferrous sulfate; Translations: [ferrous sulfate] Drug Allergy 3 Itching [facility] (1 source) Vancomycin Drug Allergy 5 [facility] Repository Medications Current Medications Medication Drug [...] procedure, # 2 tab(s), Refills(s) 0, Pharmacy: [facility] 1429, 180, cm, 11/09/22 13:16:00 [...] Called to pharmacy 09/09/2021 polyethylene glycol 3350 04308 mg powder for oral solution (1 source) Osmotic Laxative Start: 06-22-2022 17 g, Oral, D AILY PRN, Starting on Wed06/22/22 at 2018, Until Discontinued, Constipation First line therapy for constipation polyethylene glycol 3350 873186 mg / potassium chloride 2970 mg / sodium bicarbonate 6740 mg / sodium chloride 5860 mg / sodium sulfate 19579 mg powder for oral solution (1 source) [...] GM/60ML suspension 45 g sodium zirconium cyclosilicate 79295 mg powder for oral suspension (1 source) [...] 10:21am Start: 12-07-2016 End: 12-08-2016 [facility] 12:00am December 08, 2016 2:50pm Start: 12-07-2016 End: 12-08-2016 Bactrim Discontinued [facility] er 2016 11:00pm December 08, 2016 1:50pm [...] 1 01-07-2017 Episodic Other aftercare (1 source) snf (current) use of insulin; Translations: [snf (current) use of insulin] Onset: 5 Episodic [...] (BMI) of 36.0 to 36.9 in adult ([facility])] Onset: 5 07-31-2024 Chronic Other [...] Acute and unspecified renal failure (16 sources) Kmxde-pr-aazagxi renal failure; Translations: [Acute kidney failure, unspecified] [...] use of drug therapy; Translations: [Other terminal system operator (current) drug therapy] Onset: 11-18-2023 11-18-2023 Episodic Other aftercare (5 sources) Patient encounter status; Translations: [Other terminal system operator (current) drug therapy] Onset: 11-18-2023 11-18-2023 [...] Facility Patient Letter FTon 2024 Patient Letter [facility] Patient Letter [facility] December 07, 2024 GANGA STINSON [address] [place] [address] : 1960 Dear Mr. Ganga Stinson, [facility], Dr. Jovanny Villa office has been trying to reach you concerning scheduling your annual bladder scope (cystoscopy) and urethral dilation at the [facility]. We have left several messages without a response. Please call the office as soon as possible so we can get you scheduled and continue to provide you with quality care. Sincerely, Jovanny Villa M.D., F.A.C.S. [facility] [address] [place], [place] [address] , option #3 Normal [facility] Aerobic Cultureon 10-02-2024 Aerobic Culture [...] RESISTANT TO ALL B-LACTAM DRUGS. PERFORMED BY: [facility] [address] [place] [address] PATHOLOGIST VIDEO CONFERENCE SPECIALIST LEXA ELLIOTT M.D. Normal [facility] Comment on above: Performed By: #### A ERC #### [address] Basic Metabolic Panelon Creatinine Clr Calc Pharmacy 54.42 Normal [facility] Comment on above: Result Comment: PERF ORMED BY: [place] [address] PATHOLOGIST VIDEO CONFERENCE SPECIALIST LEXA ELLIOTT M.D. Performed By: #### C BC, BMP #### [address] GFR/1.73 sq M.predicted MDRD (S/P/Bld) [Vol rate/Area] 45.056 mL/min/{1.73_m2} Normal The [facility] Comment on above: Performed By: #### C BC, BMP #### [address] Basophils [#/volume] in Bloo d by Automated countOrdered By: Rafi Cai on 10-02-2024 Basophils (Bld) [#/Vol] 0.1 10*3/uL Normal 0.0-0.2 [facility] Comment on above: Result Comment: PERF ORMED BY: [place] [address] PATHOLOGIST VIDEO CONFERENCE SPECIALIST LEXA ELLIOTT M.D. Performed By: #### C BC, BMP #### [place] [address] [place] Basophils/100 leukocytes in Blood by Automated countOrdered By: Rafi Cai on 10-02-2024 Basophils/100 WBC (Bld) 0.6 % Normal . [facility] Comment on above: Performed By: #### C BC, BMP #### [place] [address] [place] Calcium [Mass/volume] in Ser um or PlasmaOrdered By: Rafi Cai on 10-02-2024 Calcium [Mass/Vol] 8.3 mg/dL Low 8.6-10.3 [facility] Comment on above: Performed By: #### C BC, BMP #### [address] Capillary blood glucose linda urement by glucometer (mass/volume)Ordered By: Cathy Brar on 10-02-2024 Glucose [Mass/Vol] 74 mg/dL Normal [facility] Comment on above: Random Glucose Refer ence Range is dependent on time and content of last meal. Glucose of more than 200 mg/dL in a nonstressed, ambulatory subject supports the diagnosis of Diabetes Mellitus. Result Comment: [place] om Glucose Reference Range is dependent on time and content of last meal. Glucose of more than 200 mg/dL in a nonstressed, ambulatory subject supports the diagnosis of Diabetes Mellitus. PERFORMED BY: [place] [address] PATHOLOGIST VIDEO CONFERENCE SPECIALIST LEXA ELLIOTT M.D. Performed By: #### G BHARATI #### Point of Care testing , Carbon dioxide, total [Moles /volume] in Serum or PlasmaOrdered By: Rafi Cai on 10-02-2024 CO2 [Moles/Vol] 24.7 mmol/L Normal 21.0-31.0 [facility] Comment on above: Performed By: #### C CHINTAN, BMP #### [address] Chloride [Moles/volume] in S tremayne or PlasmaOrdered By: Rafi Cai on 10-02-2024 Chloride [Moles/Vol] 109 mmol/L High 98-107 [facility] Comment on above: Performed By: #### C CHINTAN, BMP #### [address] Complete Blood Count Auto Di ffon 10-02-2024 Mean Corpuscular HGB Conc 32.2 g/dL Low 32.5-35.6 [facility] Comment on above: Performed By: #### C CHINTAN, BMP #### [address] NRBC% 0.0 /100{WBC} Normal 0-0.5 [facility] Comment on above: Performed By: #### C CHINTAN, BMP #### [facility] [address] White Blood Count 13.7 [CFU]/mL High 4.1-10.5 [facility] Comment on above: Performed By: #### C BC, BMP #### [facility] [address] Creatinine [Mass/volume] in Serum or PlasmaOrdered By: Rafi Cai on 10-02-2024 Creatinine [Mass/Vol] 1.69 mg/dL High 0.70-1.30 [facility] Comment on above: Performed By: #### C BC, BMP #### [address] ECG 12 lead ECGon 10-02-2024 ECG 12 lead ECG [facility] [place] [address] [place] [address] Electrocardiograph Report Signed Patient: Ganga Stinson MR#: [id number] : 1960 Acct:[id number] Age/Sex: 64 / M ADM Date: 10/02/24 Loc: [place] Room: Type: [facility] Attending Dr: Cathy Brar MD Ordering Provider: [...] change was found Confirmed by Jese Whitley ([id number]) on 10/02/2024 4:24:29 PM Referred By: Electronically Signed By: Jese Whitley Transcribed By: MUS Signed By Jese Whitley MD 10/02/24 1624 Normal [facility] Eosinophils [#/volume] in Bl ood by Automated countOrdered By: Rafi Cai on 10-02-2024 Eosinophils (Bld) [#/Vol] 1.2 10*3/uL High 0.0-0.45 [facility] Comment on above: Performed By: #### C CHINTAN, BMP #### [facility] [address] Eosinophils/100 leukocytes i n Blood by Automated countOrdered By: Rafi Cai on 10-02-2024 Eosinophils/100 WBC (Bld) 8.7 % Normal . [facility] Comment on above: Performed By: #### C CHINTAN, BMP #### [address] Erythrocyte distribution wid th [Ratio] by Automated countOrdered By: Rafi Cai on 10-02-2024 Erythrocyte distribution width (RBC) [Ratio] 15.3 % High 12.0-14.8 [facility] Comment on above: Performed By: #### C CHINTAN, BMP #### [address] Erythrocytes [#/volume] in B lood by Automated countOrdered By: Rafi Cai on 10-02-2024 RBC (Bld) [#/Vol] 2.89 10*6/uL Low 3.90-5.60 [facility] Comment on above: Performed By: #### C CHINTAN, BMP #### [address] GLUCOSE POCT GLUCOMETERSon 0 10-02-2024 Glucose [Mass/Vol] 74 mg/dL [facility] Comment on above: Random Glucose Refer ence Range is dependent on time and content of last meal. Glucose of more than 200 mg/dL in a nonstressed, ambulatory subject supports the diagnosis of Diabetes Mellitus. [facility] COMMEMT1 Glu2: Cleaned Meter [facility] Glucose [Mass/Vol] 77 mg/dL [facility] Comment on above: Random Glucose Refer ence Range is dependent on time and content of last meal. Glucose of more than 200 mg/dL in a nonstressed, ambulatory subject supports the diagnosis of Diabetes Mellitus. [facility] Glucose Poct Glucometerson 0 10-02-2024 Commemt1 Glu2: Cleaned Meter Normal [facility] Comment on above: Result Comment: PERF ORMED BY: [place] [address] PATHOLOGIST VIDEO CONFERENCE SPECIALIST LEXA ELLIOTT M.D. Performed By: #### G BHARATI #### Point of Care testing , Glucose [Mass/Vol] 77 mg/dL Normal The [facility] Comment on above: Result Comment: [place] om Glucose Reference Range is dependent on time and content of last meal. Glucose of more than 200 mg/dL in a nonstressed, ambulatory subject supports the diagnosis of Diabetes Mellitus. Performed By: #### G BHARATI #### Point of Care testing , Glucose [Mass/volume] in Ser um or PlasmaOrdered By: Rafi Cai on 10-02-2024 Glucose [Mass/Vol] 72 mg/dL Normal 70-100 [facility] Comment on above: ADA recommended refe rence rangeRandom Glucose Reference Range is dependent on time and content of last meal. Glucose of more than 200 mg/dL in a nonstressed, ambulatory subject supports the diagnosis of Diabetes Mellitus. Result Comment: [facility] Glucose Reference Range is dependent on time and content of last meal. Glucose of more than 200 mg/dL in a nonstressed, ambulatory subject supports the diagnosis of Diabetes Mellitus. ADA recommended reference range Performed By: #### C BC, BMP #### [address] Hematocrit [Volume Fraction] of Blood by Automated countOrdered By: Rafi Cai on 10-02-2024 Hematocrit (Bld) [Volume fraction] 23.0 % Low 38.8-50.0 [facility] Comment on above: Performed By: #### C BC, BMP #### [address] Hemoglobin [Mass/volume] in BloodOrdered By: Rafi Cai on 10-02-2024 Hemoglobin (Bld) [Mass/Vol] 7.4 g/dL Low 13.0-17.0 [facility] Comment on above: Performed By: #### C BC, BMP #### [place] [address] [place] Martín 10-02-2024 L ------ Specimen: [id number] Received: 10/02/24 Status: ROSIO Rajput Num: [id number] Spec Type: Surgical Subm Dr: Cathy Brar MD Tissues: A Debridement-Skin/Other Than Skin (PRODUCTS OF DEBRIDEMENT) Procedures: Gianna ASHBY/Margo Smith Age/ Patient Sex Location Account Attending Physician Ganga Stinson/Sam MA [id number] Cathy Brar MD SPEC NUM: [id number] RECD: 10/02/24 STATUS: ROSIO RAJPUT NUM: [id number] NAYLA: 10/02/[address]: Cathy Brar MD ENTERED: 10/02/[address] [facility] [address]: SPEC TYPE: Surgical DEPT: S ENTERED BY: [id number] RECV BY: [id number] ORDERED: HE, Gross/Micro L3 ORDERED: HE, Gross/Micro [...] to yellow, dull and uniform cut surfaces. Radiology Receptionist sections are submitted in a single cassette. (1, , [id number] A) Microscopic Description Microscopic examination is performed. CPT Codes 54632 Specimen: [id number] Received: 10/02/24 Status: ROSIO Matti Num: [id number] Spec Type: Surgical Subm Dr: Cathy Brar MD Tissues: A Debridement-Skin/Other Than Skin (PRODUCTS OF DEBRIDEMENT) Procedures: ISMA, Gross/Micro L3 Patient: Ganga Stinson [id number] (Continued) Signed (signature on file) Zak Brasher MD 10/04/24 0918 Normal [facility] Leukocytes [#/volume] correc shreya for nucleated erythrocytes in Blood by Automated counOrdered By: Rafi Cai on 10-02-2024 WBC corrected for nucl RBC Auto (Bld) [#/Vol] 13.7 10*3/uL High 4.1-10.5 [facility] Leukocytes [#/volume] in Blo od by Automated countOrdered By: Rafi Cai on 10-02-2024 WBC (Bld) [#/Vol] 13.7 10*3/uL High 4.1-10.5 [facility] Comment on above: Performed By: #### C CHINTAN, BMP #### [facility] [address] [place] [address] [place] Lymphocytes [#/volume] in Bl ood by Automated countOrdered By: aRfi Cai on 10-02-2024 Lymphocytes (Bld) [#/Vol] 1.5 10*3/uL Normal 1.00-4.8 [facility] Comment on above: Performed By: #### C CHINTAN, BMP #### [facility] [address] [place] [address] [place] Lymphocytes/100 leukocytes i n Blood by Automated countOrdered By: Rafi Cai on 10-02-2024 Lymphocytes/100 WBC (Bld) 11.2 % Normal . [facility] Comment on above: Performed By: #### C BC, BMP #### [facility] [address] MCH [Entitic mass] by Automa shreya countOrdered By: Rafi Cai on 10-02-2024 MCH (RBC) [Entitic mass] 25.6 pg Low 27.5-35.2 [facility] Comment on above: Performed By: #### C BC, BMP #### [address] MCHC Auto (RBC) [Mass/Vol]Or dered By: Rafi Cai on 10-02-2024 MCHC (RBC) [Mass/Vol] 32.2 g/dL Low 32.5-35.6 [facility] MCV [Entitic volume] by Auto mated countOrdered By: Rafi Cai on 10-02-2024 MCV (RBC) [Entitic vol] 79.5 fL Low 83.5-101 [facility] Comment on above: Performed By: #### C BC, BMP #### [place] [address] [place] Monocytes [#/volume] in Bloo d by Automated countOrdered By: Rafi Cai on 10-02-2024 Monocytes (Bld) [#/Vol] 1.1 10*3/uL High 0.0-0.8 [facility] Comment on above: Performed By: #### C BC, BMP #### [place] [address] [place] Monocytes/100 leukocytes in Blood by Automated countOrdered By: Rafi Cai on 10-02-2024 Monocytes/100 WBC (Bld) 8.3 % Normal . [facility] Comment on above: Performed By: #### C BC, BMP #### [place] [address] [place] Neutrophils [#/volume] in Bl ood by Automated countOrdered By: Rafi Cai on 10-02-2024 Neutrophils (Bld) [#/Vol] 9.8 10*3/uL High 1.8-7.7 [facility] Comment on above: Performed By: #### C BC, BMP #### [facility] [address] [place] [address] [place] Neutrophils/100 leukocytes i n Blood by Automated countOrdered By: Rafi Cai on 10-02-2024 Neutrophils/100 WBC (Bld) 71.2 % Normal . [facility] Comment on above: Performed By: #### C BC, BMP #### [address] No Panel InformationOrdered By: Rafi Cai on 10-02-2024 Estimated GFR (CKD-EPI) 45.056 mL/Min [facility] Creatinine Clearance (Chem 54.42 [facility] No Panel InformationOrdered By: Cathy Brar on 10-02-2024 Bedside Glucose Comment Glu2: cleaned meter [facility] Nucleated erythrocytes [Pres ence] in Blood by Automated countOrdered By: Rafi Cai on 10-02-2024 Nucleated RBC Auto Ql (Bld) 0.0 /100{WBC} 0-0.5 [facility] Platelet mean volume [Entiti c volume] in Blood by Automated countOrdered By: Rafi Cai on 10-02-2024 Platelet mean volume (Bld) [Entitic vol] 6.2 fL Low 6.6-10.1 [facility] Comment on above: Performed By: #### C CHINTAN, BMP #### [address] Platelets [#/volume] in Bloo d by Automated countOrdered By: Rafi Cai on 10-02-2024 Platelets (Bld) [#/Vol] 339 10*3/uL Normal 150-450 [facility] Comment on above: Performed By: #### C CHINTAN, BMP #### [address] Potassium [Moles/volume] in Serum or PlasmaOrdered By: Rafi Cai on 10-02-2024 Potassium [Moles/Vol] 3.7 mmol/L Normal 3.5-5.1 [facility] Comment on above: Performed By: #### C BC, BMP #### [place] [address] [place] Serum or plasma anion gap de terminationOrdered By: Rafi Cai on 10-02-2024 Anion gap [Moles/Vol] 8.0 mmol/L Normal 6.0-15.0 [facility] Comment on above: Performed By: #### C BC, BMP #### [facility] [address] Sodium [Moles/volume] in Ser um or PlasmaOrdered By: Rafi Cai on 10-02-2024 Sodium [Moles/Vol] 138 mmol/L Normal 136-145 [facility] Comment on above: Performed By: #### C BC, BMP #### [facility] [address] Urea nitrogen [Mass/volume] in Serum or PlasmaOrdered By: Rafi Cai on 10-02-2024 Urea nitrogen [Mass/Vol] 25 mg/dL Normal 7-25 [facility] Comment on above: Performed By: #### C BC, BMP #### [facility] [address] ALL CBC WITH AUTO DIFFon BASOPHILS ABSOLUTE AUTO 0 [facility] Basophils/100 WBC (Bld) 0.3 % 0.2 - 2.0 % [facility] Eosinophils/100 WBC (Bld) 9.5 % High 0.9 - 7.0 % [facility] Erythrocyte distribution width (RBC) [Ratio] 14.3 % 11.0 - 15.0 % [facility] Hematocrit (Bld) [Volume fraction] 23.2 % Critically low 42.0 - 54.0 % [facility] Comment on above: RESULTS CALLED TO NICHOL SWAN RN Hemoglobin (Bld) [Mass/Vol] 7.4 g/dL Low 14.0 - 18.0 g/dL [facility] IMMATURE GRANULOCYTES ABS AUTO 0.07 High [facility] Immature granulocytes/100 WBC (Bld) 0.5 % 0.0 - 0.5 % [facility] Interpretation and review of laboratory results Abnormal [facility] LYMPHOCYTES ABSOLUTE AUTO 1.8 [facility] Lymphocytes/100 WBC (Bld) 13.3 % Low 20.5 - 60.0 % [facility] MCH (RBC) [Entitic mass] 26.6 pg 25.9 - 34.0 pg [facility] MCHC (RBC) [Mass/Vol] 31.9 g/dL 29.9 - 35.2 g/dL [facility] MCV (RBC) [Entitic vol] 83.5 fL 80.0 - 94.0 fL [facility] MONOCYTES ABSOLUTE AUTO 1.1 High [facility] Monocytes/100 WBC (Bld) 7.8 % 1.7 - 12.0 % [facility] NEUTROPHILS ABSOLUTE AUTO 9.3 High [facility] Neutrophils/100 WBC (Bld) 68.6 % 43.0 - 75.0 % [facility] Platelet mean volume (Bld) [Entitic vol] 8.8 fL Low 9.5 - 13.5 fL [facility] TBH EO # 1.3 High [facility] TB PLT 306 [facility] RBC 2.78 Low [facility] WBC 13.5 High [facility] ALL CBC WITH AUTO DIFFon BASOPHILS ABSOLUTE AUTO 0.1 [facility] Basophils/100 WBC (Bld) 0.4 % 0.2 - 2.0 % [facility] Eosinophils/100 WBC (Bld) 9 % High 0.9 - 7.0 % [facility] Erythrocyte distribution width (RBC) [Ratio] 14.5 % 11.0 - 15.0 % [facility] Hematocrit (Bld) [Volume fraction] 23.8 % Critically low 42.0 - 54.0 % [facility] Comment on above: RESULTS CALLED TO TABBY RUBALCAVA RN at 1219 Hemoglobin (Bld) [Mass/Vol] 7.4 g/dL Low 14.0 - 18.0 g/dL [facility] IMMATURE GRANULOCYTES ABS AUTO 0.08 High [facility] Immature granulocytes/100 WBC (Bld) 0.6 % High 0.0 - 0.5 % [facility] Interpretation and review of laboratory results Abnormal [facility] LYMPHOCYTES ABSOLUTE AUTO 1.6 [facility] Lymphocytes/100 WBC (Bld) 12.9 % Low 20.5 - 60.0 % [facility] MCH (RBC) [Entitic mass] 26.3 pg 25.9 - 34.0 pg [facility] MCHC (RBC) [Mass/Vol] 31.1 g/dL 29.9 [...] US ankle/arm indiceson 09-05 US ankle/arm indices [facility] [address] [place] [address] Ultrasound Report Signed Patient: Ganga Stinson MR#: [id number] : 1960 Acct:[id number] Age/Sex: 64 / M ADM Date: 08/30/24 Loc: [facility] Room: Type: [facility] Attending Dr: Jesusita Navarro MD Ordering [...] Navarro MD,FACS,FSVS 09/05/2024 12:35 PM Dictation Location: [facility] Tech: Livia Hawk Transcribed By: MARYANN 09/05/24 1235 Dictated By: Jesusita Navarro MD 09/05/24 1234 Signed By: 09/05/24 1235 Normal [facility] ALL CBC WITH AUTO DIFFon BASOPHILS ABSOLUTE AUTO 0.1 [facility] Basophils/100 WBC (Bld) 0.4 % 0.2 - 2.0 % [facility] Eosinophils/100 WBC (Bld) 5 % 0.9 - 7.0 % [facility] Erythrocyte distribution width (RBC) [Ratio] 14.3 % 11.0 - 15.0 % [facility] Hematocrit (Bld) [Volume fraction] 23.4 % Critically low 42.0 - 54.0 % [facility] Comment on above: RESULTS CALLED TO TABBY RUBALCAVA RN Hemoglobin (Bld) [Mass/Vol] 7.3 g/dL Low 14.0 - 18.0 g/dL [facility] IMMATURE GRANULOCYTES ABS AUTO 0.06 High [facility] Immature granulocytes/100 WBC (Bld) 0.4 % 0.0 - 0.5 % [facility] Interpretation and review of laboratory results Abnormal [facility] LYMPHOCYTES ABSOLUTE AUTO 1.6 [facility] Lymphocytes/100 WBC (Bld) 11.5 % Low 20.5 - 60.0 % [facility] MCH (RBC) [Entitic mass] 26 pg 25.9 - 34.0 pg [facility] MCHC (RBC) [Mass/Vol] 31.2 g/dL 29.9 - 35.2 g/dL [facility] MCV (RBC) [Entitic vol] 83.3 fL 80.0 - 94.0 fL [facility] MONOCYTES ABSOLUTE AUTO 1.1 High [facility] Monocytes/100 WBC (Bld) 8.2 % 1.7 - 12.0 % [facility] NEUTROPHILS ABSOLUTE AUTO 10.3 High [facility] Neutrophils/100 WBC (Bld) 74.5 % 43.0 - 75.0 % [facility] Platelet mean volume (Bld) [Entitic vol] 8.9 fL Low 9.5 - 13.5 fL [facility] [facility] EO # 0.7 [facility] TBH PLT 319 [facility] TBH RBC 2.81 Low [facility] TBH WBC 13.8 High [facility] ALL CBC WITH AUTO DIFFon BASOPHILS ABSOLUTE AUTO 0.1 [facility] Basophils/100 WBC (Bld) 0.4 % 0.2 - 2.0 % [facility] Eosinophils/100 WBC (Bld) 5.1 % 0.9 - 7.0 % [facility] Erythrocyte distribution width (RBC) [Ratio] 15.3 % High 11.0 - 15.0 % [facility] Hematocrit (Bld) [Volume fraction] 22.9 % Critically low 42.0 - 54.0 % [facility] Comment on above: RESULTS CALLED TO CARLOS FREED RN Hemoglobin (Bld) [Mass/Vol] 6.9 g/dL Critically low 14.0 - 18.0 g/dL [facility] Comment on above: RESULTS CALLED TO CARLOS FREED RN IMMATURE GRANULOCYTES ABS AUTO 0.05 High [facility] Immature granulocytes/100 WBC (Bld) 0.4 % 0.0 - 0.5 % [facility] Interpretation and review of laboratory results Abnormal [facility] LYMPHOCYTES ABSOLUTE AUTO 1.3 [facility] Lymphocytes/100 WBC (Bld) 10.2 % Low 20.5 - 60.0 % [facility] MCH (RBC) [Entitic mass] 24.7 pg Low 25.9 - 34.0 pg [facility] MCHC (RBC) [Mass/Vol] 30.1 g/dL 29.9 - 35.2 g/dL [facility] MCV (RBC) [Entitic vol] 82.1 fL 80.0 - 94.0 fL [facility] MONOCYTES ABSOLUTE AUTO 1.1 High [facility] Monocytes/100 WBC (Bld) 8.1 % 1.7 - 12.0 % [facility] NEUTROPHILS ABSOLUTE AUTO 9.9 High [facility] Neutrophils/100 WBC (Bld) 75.8 % High 43.0 - 75.0 % [facility] Platelet mean volume (Bld) [Entitic vol] 8.9 fL Low 9.5 - 13.5 fL [facility] TBH EO # 0.7 [facility] TBH PLT 292 [facility] RBC 2.79 Low [facility] TB WBC 13.1 High [facility] ALL CBC WITH AUTO DIFFon BASOPHILS ABSOLUTE AUTO 0.1 [facility] Basophils/100 WBC (Bld) 0.6 % 0.2 - 2.0 % [facility] Eosinophils/100 WBC (Bld) 8.8 % High 0.9 - 7.0 % [facility] Erythrocyte distribution width (RBC) [Ratio] 14 % 11.0 - 15.0 % [facility] Hematocrit (Bld) [Volume fraction] 26.9 % Low 42.0 - 54.0 % [facility] Hemoglobin (Bld) [Mass/Vol] 8.1 g/dL Low 14.0 - 18.0 g/dL [facility] IMMATURE GRANULOCYTES ABS AUTO 0.12 High [facility] Immature granulocytes/100 WBC (Bld) 0.9 % High 0.0 - 0.5 % [facility] Interpretation and review of laboratory results Abnormal [facility] LYMPHOCYTES ABSOLUTE AUTO 1.6 [facility] Lymphocytes/100 WBC (Bld) 12.2 % Low 20.5 - 60.0 % [facility] MCH (RBC) [Entitic mass] 24.9 pg Low 25.9 - 34.0 pg [facility] MCHC (RBC) [Mass/Vol] 30.1 g/dL 29.9 - 35.2 g/dL [facility] MCV (RBC) [Entitic vol] 82.8 fL 80.0 - 94.0 fL [facility] MONOCYTES ABSOLUTE AUTO 1 High [facility] Monocytes/100 WBC (Bld) 7.3 % 1.7 - 12.0 % [facility] NEUTROPHILS ABSOLUTE AUTO 9.3 High [facility] Neutrophils/100 WBC (Bld) 70.2 % 43.0 - 75.0 % [facility] Platelet mean volume (Bld) [Entitic vol] 8.9 fL Low 9.5 - 13.5 fL [facility] TBH EO # 1.2 High [facility] TBH PLT 317 [facility] RBC 3.25 Low [facility] TB WBC 13.2 High [facility] ALL SED RATEon 02-14-2024 Interpretation and review of laboratory results Abnormal [facility] TBH SED RATE 67 High NINF [facility] Basic Metabolic Panelon 01-27 Anion gap [Moles/Vol] 9.9 mmol/L Normal 6.0-15.0 [facility] Comment on above: Performed By: #### C BC, BMP #### [facility] [address] [place] [address] Calcium [Mass/Vol] 7.6 mg/dL Low 8.6-10.3 The Pending sale to [facility] Comment on above: Performed By: #### C BC, BMP #### [address] Chloride [Moles/Vol] 106 mmol/L Normal 98-107 [facility] Comment on above: Performed By: #### C BC, BMP #### [address] CO2 [Moles/Vol] 26.1 mmol/L Normal 21.0-31.0 [facility] Comment on above: Performed By: #### C BC, BMP #### [address] Creatinine [Mass/Vol] 1.59 mg/dL High 0.70-1.30 [facility] Comment on above: Performed By: #### C BC, BMP #### [address] GFR/1.73 sq M.predicted MDRD (S/P/Bld) [Vol rate/Area] 48.779 mL/min/{1.73_m2} Normal [facility] Comment on above: Performed By: #### C BC, BMP #### [address] Glucose [Mass/Vol] 128 mg/dL High 70-100 The [facility] Comment on above: Result Comment: [place] Glucose Reference Range is dependent on time and content of last meal. Glucose of more than 200 mg/dL in a nonstressed, ambulatory subject supports the diagnosis of Diabetes Mellitus. ADA recommended reference range Performed By: #### C BC, BMP #### [address] Potassium [Moles/Vol] 4.0 mmol/L Normal 3.5-5.1 [facility] Comment on above: Performed By: #### C BC, BMP #### [place] [address] [place] Sodium [Moles/Vol] 138 mmol/L Normal 136-145 The [facility] Comment on above: Performed By: #### C CHINTAN, BMP #### [facility] [address] Urea nitrogen [Mass/Vol] 24 mg/dL Normal 7-25 [facility] Comment on above: Performed By: #### C CHINTAN, BMP #### [facility] [address] Basophils Auto (Bld) [#/Vol] Ordered By: Nina Aleta on 02-08-2024 Basophils (Bld) [#/Vol] Automated basophil count 0.0-0.2 [facility] Basophils/100 WBC Auto (Bld) Ordered By: Nina Aleta on 02-08-2024 Basophils/100 WBC (Bld) Automated basophil % . [facility] C reactive protein [Mass/vol ume] in Serum or PlasmaOrdered By: Nina Aleta on 02-08-2024 CRP [Mass/Vol] C reactive protein [Mass/volume] in Serum or Plasma High 0.0-0.5 [facility] C-Reactive Proteinon 024 C-Reactive Protein 10.7 mg/dL High 0.0-0.5 The [facility] Comment on above: Performed By: #### C CHINTAN, BMP #### [address] Calcium [Mass/volume] in Ser um or PlasmaOrdered By: Nina Aleta on 02-08-2024 Calcium [Mass/Vol] Calcium [Mass/volume ] in Serum or Plasma Low 8.6-10.3 [facility] Carbon dioxide, total [Moles /volume] in Serum or PlasmaOrdered By: Nina Aleta on 02-08-2024 CO2 [Moles/Vol] Carbon dioxide, tota l [Moles/volume] in Serum or Plasma 21.0-31.0 [facility] Chloride [Moles/volume] in S tremayne or PlasmaOrdered By: Nina Aleta on 02-08-2024 Chloride [Moles/Vol] Chloride [Moles/vol ume] in Serum or Plasma 98-107 [facility] Complete Blood Count Auto Di ffon 02-08-2024 Basophils (Bld) [#/Vol] 0.0 10*3/uL Normal 0.0-0.2 [facility] Comment on above: Performed By: #### C BC, BMP, FE PRO, B12, ESR, CRP #### [address] Basophils/100 WBC (Bld) 0.4 % Normal . [facility] Comment on above: Performed By: #### C BC, BMP, FE PRO, B12, ESR, CRP #### [address] Eosinophils (Bld) [#/Vol] 0.2 10*3/uL Normal 0.0-0.45 [facility] Comment on above: Performed By: #### C BC, BMP, FE PRO, B12, ESR, CRP #### [address] Eosinophils/100 WBC (Bld) 2.4 % Normal . [facility] Comment on above: Performed By: #### C BC, BMP, FE PRO, B12, ESR, CRP #### [address] Erythrocyte distribution width (RBC) [Ratio] 15.2 % High 12.0-14.8 [facility] Comment on above: Performed By: #### C BC, BMP, FE PRO, B12, ESR, CRP #### [address] Hematocrit (Bld) [Volume fraction] 23.1 % Low 38.8-50.0 [facility] Comment on above: Performed By: #### C BC, BMP, FE PRO, B12, ESR, CRP #### [address] Hemoglobin (Bld) [Mass/Vol] 7.8 g/dL Low 13.0-17.0 [facility] Comment on above: Performed By: #### C BC, BMP, FE PRO, B12, ESR, CRP #### [address] Lymphocytes (Bld) [#/Vol] 0.7 10*3/uL Low 1.00-4.8 [facility] Comment on above: Performed By: #### C BC, BMP, FE PRO, B12, ESR, CRP #### [address] Lymphocytes/100 WBC (Bld) 7.0 % Normal . [facility] Comment on above: Performed By: #### C BC, BMP, FE PRO, B12, ESR, CRP #### [address] MCH (RBC) [Entitic mass] 26.8 pg Low 27.5-35.2 [facility] Comment on above: Performed By: #### C BC, BMP, FE PRO, B12, ESR, CRP #### [address] MCV (RBC) [Entitic vol] 79.5 fL Low 83.5-101 [facility] Comment on above: Performed By: #### C BC, BMP, FE PRO, B12, ESR, CRP #### [address] Mean Corpuscular HGB Conc 33.7 g/dL Normal 32.5-35.6 [facility] Comment on above: Performed By: #### C BC, BMP, FE PRO, B12, ESR, CRP #### [address] Monocytes (Bld) [#/Vol] 0.5 10*3/uL Normal 0.0-0.8 [facility] Comment on above: Performed By: #### C BC, BMP, FE PRO, B12, ESR, CRP #### [address] Monocytes/100 WBC (Bld) 4.8 % Normal . [facility] Comment on above: Performed By: #### C BC, BMP, FE PRO, B12, ESR, CRP #### [address] Neutrophils (Bld) [#/Vol] 9.0 10*3/uL High 1.8-7.7 [facility] Comment on above: Performed By: #### C BC, BMP, FE PRO, B12, ESR, CRP #### [address] Neutrophils/100 WBC (Bld) 85.4 % Normal . [facility] Comment on above: Performed By: #### C BC, BMP, FE PRO, B12, ESR, CRP #### [address] NRBC% 0.0 /100{WBC} Normal 0-0.5 [facility] Comment on above: Performed By: #### C BC, BMP, FE PRO, B12, ESR, CRP #### [address] Platelet mean volume (Bld) [Entitic vol] 6.7 fL Normal 6.6-10.1 [facility] Comment on above: Performed By: #### C BC, BMP, FE PRO, B12, ESR, CRP #### [address] Platelets (Bld) [#/Vol] 220 10*3/uL Normal 150-450 [facility] Comment on above: Performed By: #### C BC, BMP, FE PRO, B12, ESR, CRP #### [address] RBC (Bld) [#/Vol] 2.91 10*6/uL Low 3.90-5.60 [facility] Comment on above: Performed By: #### C BC, BMP, FE PRO, B12, ESR, CRP #### [address] WBC (Bld) [#/Vol] 10.5 10*3/uL Normal 4.1-10.5 [facility] Comment on above: Performed By: #### C BC, BMP, FE PRO, B12, ESR, CRP #### [facility] [address] Creatinine [Mass/volume] in Serum or PlasmaOrdered By: Nina Aleta on 02-08-2024 Creatinine [Mass/Vol] Creatinine [Mass/v olume] in Serum or Plasma High 0.70-1.30 [facility] Eosinophils Auto (Bld) [#/Vo l]Ordered By: Nina Aleta on 02-08-2024 Eosinophils (Bld) [#/Vol] Automated eosinophil count 0.0-0.45 [facility] Eosinophils/100 WBC Auto (Bl d)Ordered By: Nina Aleta on 02-08-2024 Eosinophils/100 WBC (Bld) Automated eosinophil % . [facility] Erythrocyte Sedimentation Ra мария 02-08-2024 ESR (Bld) [Velocity] 44 mm/h High 0-19 [facility] Comment on above: Result Comment: PERF ORMED BY: [place] [address] PATHOLOGIST VIDEO CONFERENCE SPECIALIST FARRAH PALU M.D. Performed By: #### C BC, BMP, FE PRO, B12, ESR, CRP #### [address] Erythrocyte distribution wid th Auto (RBC) [Ratio]Ordered By: Nina Aleta on 02-08-2024 Erythrocyte distribution width (RBC) [Ratio] Erythrocyte distribution width [Ratio] by Automated count High 12.0-14.8 [facility] Erythrocyte sedimentation ra te by Photometric methodOrdered By: Nina Aleta on 02-08-2024 ESR Photometric method (Bld) [Velocity] Erythrocyte sedimentation rate by Photometric method High 0-19 [facility] FE PROon 02-08-2024 % Iron Saturation Not performed Normal 20-50 [facility] Comment on above: Performed By: #### C BC, BMP #### [address] Ferritin [Mass/Vol] 422.9 ng/mL High 23.9-336.2 [facility] Comment on above: Performed By: #### C BC, BMP #### [facility] [address] [place] [address] [place] Iron [Mass/Vol] ug/dL Low 50-212 [facility] Comment on above: Performed By: #### C BC, BMP #### [facility] [address] [place] [address] [facility] Total Iron Binding Capacity 175 ug/dL Low 255-450 [facility] Comment on above: Performed By: #### C BC, BMP #### [facility] [address] [place] [address] [facility] Transferrin [Mass/Vol] 125 mg/dL Low 203-362 [facility] Comment on above: Performed By: #### C BC, BMP #### [facility] [address] [place] [id number] [facility] Ferritin [Mass/volume] in Se rum or PlasmaOrdered By: Nina River on 02-08-2024 Ferritin [Mass/Vol] Ferritin [Mass/volum e] in Serum or Plasma High 23.9-336.2 [facility] Glucose [Mass/volume] in Ser um or PlasmaOrdered By: Nina River on 02-08-2024 Glucose [Mass/Vol] Glucose [Mass/volume ] in Serum or Plasma High 70-100 [facility] Comment on above: ADA recommended refe rence rangeRandom Glucose Reference Range is dependent on time and content of last meal. Glucose of more than 200 mg/dL in a nonstressed, ambulatory subject supports the diagnosis of Diabetes Mellitus. Hematocrit Auto (Bld) [Volum e fraction]Ordered By: Nina River on 02-08-2024 Hematocrit (Bld) [Volume fraction] Hematocrit [Volume Fraction] of Blood by Automated count Low 38.8-50.0 [facility] Hemoglobin [Mass/volume] in BloodOrdered By: Nina River on 02-08-2024 Hemoglobin (Bld) [Mass/Vol] Hemoglobin [Mass/volume] in Blood Low 13.0-17.0 [facility] Iron [Mass/volume] in Serum or PlasmaOrdered By: Nina River on 02-08-2024 Iron [Mass/Vol] Iron [Mass/volume] i n Serum or Plasma Low 50-212 [facility] Leukocytes [#/volume] correc shreya for nucleated erythrocytes in Blood by Automated counOrdered By: Nina River on 02-08-2024 WBC corrected for nucl RBC Auto (Bld) [#/Vol] Leukocytes [#/volume] corrected for nucleated erythrocytes in Blood by Automated coun 4.1-10.5 [facility] Lymphocytes Auto (Bld) [#/Vo l]Ordered By: Ninastefan River on 02-08-2024 Lymphocytes (Bld) [#/Vol] Lymphocytes [#/volume] in Blood by Automated count Low 1.00-4.8 [facility] Lymphocytes/100 WBC Auto (Bl d)Ordered By: Nina River on 02-08-2024 Lymphocytes/100 WBC (Bld) Lymphocytes/100 leukocytes in Blood by Automated count . [facility] MCH Auto (RBC) [Entitic mass ]Ordered By: Nina River on 02-08-2024 MCH (RBC) [Entitic mass] MCH [Entitic mass] by Automated count Low 27.5-35.2 [facility] MCHC Auto (RBC) [Mass/Vol]Or dered By: Nina River on 02-08-2024 MCHC (RBC) [Mass/Vol] MCHC [Mass/volume] by Automated count 32.5-35.6 [facility] MCV Auto (RBC) [Entitic vol] Ordered By: Nina River on 02-08-2024 MCV (RBC) [Entitic vol] MCV [Entitic volume] by Automated count Low 83.5-101 [facility] Monocytes Auto (Bld) [#/Vol] Ordered By: Nina River on 02-08-2024 Monocytes (Bld) [#/Vol] Automated blood monocyte count 0.0-0.8 [facility] Monocytes/100 WBC Auto (Bld) Ordered By: Nina River on 02-08-2024 Monocytes/100 WBC (Bld) Automated monocyte % . [facility] Neutrophils Auto (Bld) [#/Vo l]Ordered By: Nina River on 02-08-2024 Neutrophils (Bld) [#/Vol] Neutrophils [#/volume] in Blood by Automated count High 1.8-7.7 [facility] Neutrophils/100 WBC Auto (Bl d)Ordered By: Nina River on 02-08-2024 Neutrophils/100 WBC (Bld) Automated neutrophil % . [facility] No Panel InformationOrdered By: Nina River on 02-08-2024 Estimated GFR (CKD-EPI) 48.779 mL/Min [facility] Creatinine Clearance (Chem N/A [facility] Nucleated erythrocytes [Pres ence] in Blood by Automated countOrdered By: Nina River on 02-08-2024 Nucleated RBC Auto Ql (Bld) Nucleated erythrocytes [Presence] in Blood by Automated count 0-0.5 [facility] Platelet mean volume Auto (B ld) [Entitic vol]Ordered By: Nina River on 02-08-2024 Platelet mean volume (Bld) [Entitic vol] Platelet mean volume [Entitic volume] in Blood by Automated count 6.6-10.1 [facility] Platelets Auto (Bld) [#/Vol] Ordered By: Nina River on 02-08-2024 Platelets (Bld) [#/Vol] Platelets [#/volume] in Blood by Automated count 150-450 [facility] Potassium [Moles/volume] in Serum or PlasmaOrdered By: Nina River on 02-08-2024 Potassium [Moles/Vol] Potassium [Moles/v olume] in Serum or Plasma 3.5-5.1 [facility] RBC Auto (Bld) [#/Vol]Ordere d By: Nina River on 02-08-2024 RBC (Bld) [#/Vol] Erythrocytes [#/volu me] in Blood by Automated count Low 3.90-5.60 [facility] Serum or plasma anion gap de terminationOrdered By: Nina River on 02-08-2024 Anion gap [Moles/Vol] Serum or plasma an ion gap determination 6.0-15.0 [facility] Serum or plasma iron binding capacity measurement (mass/volume)Ordered By: Nina River on 02-08-2024 Iron binding capacity [Mass/Vol] Iron binding capacity [Mass/volume] in Serum or Plasma Low 255-450 [facility] Serum or plasma iron saturat ion measurement (mass fraction)Ordered By: Nina River on 02-08-2024 Iron saturation [Mass fraction] Iron saturation [Mass Fraction] in Serum or Plasma [facility] Comment on above: Test not performed Sodium [Moles/volume] in Ser um or PlasmaOrdered By: Nina River on 02-08-2024 Sodium [Moles/Vol] Sodium [Moles/volume ] in Serum or Plasma 136-145 [facility] Transferrin [Mass/volume] in Serum or PlasmaOrdered By: Nina River on 02-08-2024 Transferrin [Mass/Vol] Transferrin [Mass/volume] in Serum or Plasma Low 203-362 [facility] Urea nitrogen [Mass/volume] in Serum or PlasmaOrdered By: Nina River on 02-08-2024 Urea nitrogen [Mass/Vol] Urea nitrogen [Mass/volume] in Serum or Plasma 7-25 [facility] Vitamin B12on 02-08-2024 Cobalamin (Vitamin B12) [Mass/Vol] 701 pg/mL Normal 180-914 [facility] Comment on above: Result Comment: PERF ORMED BY: [place] [address] PATHOLOGIST VIDEO CONFERENCE SPECIALIST FARRAH PAUL M.D. Performed By: #### C BC, BMP #### [address] Vitamin B12 ser/plasOrdered By: Ninabharath River on 02-08-2024 Cobalamin (Vitamin B12) [Mass/Vol] Vitamin B12 ser/plas 180-914 [facility] WBC Auto (Bld) [#/Vol]Ordere d By: Ninastefan River on 02-08-2024 WBC (Bld) [#/Vol] Leukocytes [#/volume ] in Blood by Automated count 4.1-10.5 [facility] ALL CBC WITH AUTO DIFFon 09- 05-2024 BASOPHILS ABSOLUTE AUTO 0.0 [facility] Basophils/100 WBC (Bld) 0.3 % 0.2 - 2.0 % [facility] Eosinophils/100 WBC (Bld) 6.4 % 0.9 - 7.0 % [facility] Erythrocyte distribution width (RBC) [Ratio] 16.8 % High 11.0 - 15.0 % [facility] Hematocrit (Bld) [Volume fraction] 29.4 % Low 42.0 - 54.0 % [facility] Hemoglobin (Bld) [Mass/Vol] 9.0 g/dL Low 14.0 - 18.0 g/dL [facility] IMMATURE GRANULOCYTES ABS AUTO 0.04 High [facility] Immature granulocytes/100 WBC (Bld) 0.4 % 0.0 - 0.5 % [facility] Interpretation and review of laboratory results Abnormal [facility] LYMPHOCYTES ABSOLUTE AUTO 1.8 [facility] Lymphocytes/100 WBC (Bld) 17.7 % Low 20.5 - 60.0 % [facility] MCH (RBC) [Entitic mass] 25.3 pg Low 25.9 - 34.0 pg [facility] MCHC (RBC) [Mass/Vol] 30.6 g/dL 29.9 - 35.2 g/dL [facility] MCV (RBC) [Entitic vol] 82.6 fL 80.0 - 94.0 fL [facility] MONOCYTES ABSOLUTE AUTO 0.7 [facility] Monocytes/100 WBC (Bld) 6.7 % 1.7 - 12.0 % [facility] NEUTROPHILS ABSOLUTE AUTO 7.1 High [facility] Neutrophils/100 WBC (Bld) 68.5 % 43.0 - 75.0 % [facility] Platelet mean volume (Bld) [Entitic vol] 8.8 fL Low 9.5 - 13.5 fL [facility] TBH EO # 0.7 [facility] TB PLT 280 [facility] TB RBC 3.56 Low [facility] TB WBC 10.3 [facility] BONE MARROWon 10-11-2023 BONE MARROW SEE SEPARATE REPORT Normal [facility] Comment on above: Result Comment: REVI EWED BY SOLEDAD HUYNH M.D. Performed By: #### E [facility], [address]-9, MDSDF #### [facility] ([id number]) [address] [place] [id number] #### 381[address]-4, PENNY #### [facility] ([id number]) [address] [place] [address] CBC AND AUTO DIFFon 15-20 24 ABSOLUTE BASOPHIL 0.0 X10E9/L Normal 0.0-0.2 [facility] Comment on above: Performed By: #### P INR, CBCA #### [facility] ([id number]) [address] [place] [address] ABSOLUTE NEUTROPHIL 8.0 X10E9/L High 1.5-6.6 [facility] Comment on above: Performed By: #### P INR, CBCA #### [facility] ([id number]) [address] [place] [address] Basophils/100 WBC (Bld) 0.3 % Normal [facility] Comment on above: Performed By: #### P INR, CBCA #### [facility] ([id number]) [address] [place] [address] Eosinophils (Bld) [#/Vol] 0.5 10*3/uL High 0.0-0.4 [facility] Comment on above: Performed By: #### P INR, CBCA #### [facility] ([id number]) [address] [place] [address] Eosinophils/100 WBC (Bld) 4.4 % Normal [facility] Comment on above: Performed By: #### P INR, CBCA #### [facility] ([id number]) [address] [address]9822 Erythrocyte distribution width (RBC) [Ratio] 16.8 % High 11.5-15.0 [facility] Comment on above: Performed By: #### P INR, CBCA #### [facility] ([id number]) [address] [address] 58807 Hematocrit (Bld) [Volume fraction] 20.1 % Low 39-49 [facility] Comment on above: Performed By: #### P INR, CBCA #### [facility] ([id number]) [address] [address] 52219 Hemoglobin (Bld) [Mass/Vol] 6.6 g/dL Critically low 13.0-17.0 [facility] Comment on above: Performed By: #### P INR, CBCA #### [facility] ([id number]) [address] [address] 99192 Lymphocytes (Bld) [#/Vol] 1.4 10*3/uL Normal 1.0-3.5 [facility] Comment on above: Performed By: #### P INR, CBCA #### [facility] ([id number]) [address] [address] 02288 Lymphocytes/100 WBC (Bld) 13.0 % Normal [facility] Comment on above: Performed By: #### P INR, CBCA #### [facility] ([id number]) [address] [address] 97188 MCH (RBC) [Entitic mass] 24.7 pg Low 27-34 [facility] Comment on above: Performed By: #### P INR, CBCA #### [facility] ([id number]) [address] [place] [address] 40300 MCHC (RBC) [Mass/Vol] 32.6 g/dL Normal 32-36 [facility] Comment on above: Performed By: #### P INR, CBCA #### [facility] ([id number]) [address] [place] [address] 67035 MCV (RBC) [Entitic vol] 76 fL Low 80-100 [facility] Comment on above: Performed By: #### P INR, CBCA #### [facility] ([id number]) [address] [place] [address] 62826 Monocytes (Bld) [#/Vol] 0.9 10*3/uL Normal 0-0.9 [facility] Comment on above: Performed By: #### P INR, CBCA #### [facility] ([id number]) [address] [place] [address] 34523 Monocytes/100 WBC (Bld) 8.2 % Normal [facility] Comment on above: Performed By: #### P INR, CBCA #### [facility] ([id number]) [address] [place] [address] 59910 Neutrophils/100 WBC (Bld) 74.1 % Normal [facility] Comment on above: Performed By: #### P INR, CBCA #### [facility] ([id number]) [address] [place] [address] 61242 Platelet mean volume (Bld) [Entitic vol] 7.0 fL Normal 7-12 [facility] Comment on above: Performed By: #### P INR, CBCA #### [facility] ([id number]) [address] [place] [address] 82062 Platelets (Bld) [#/Vol] 371 10*3/uL Normal 150-450 [facility] Comment on above: Performed By: #### P INR, CBCA #### [facility] ([id number]) [address] [place] [address] 12086 RBC COUNT 2.66 X10E12/L Low 4.10-5.70 [facility] Comment on above: Performed By: #### P INR, CBCA #### [facility] ([id number]) [address] [place] [address] 33771 WBC (Bld) [#/Vol] 10.8 10*3/uL Normal 4.0-11.0 [facility] Comment on above: Performed By: #### P INR, CBCA #### [facility] ([id number]) [address] [place] [address] 43754 DNA and RNA Extract and Hold on 10-11-2023 DNA and RNA Extract and Hold SEE COMMENTS 10/14/2023 08:52 AM Normal [facility] Comment on above: Result Comment: NOTE [...] [facility] Hematopathology Laboratory's test catalog, please contact [facility] at [phone]. Method summary: DNA and RNA were extracted from the received specimen and stored at -80 C. This test was developed and its performance characteristics determined by [facility] in a manner consistent with CLIA requirements. This test has not been cleared or approved by the U.S. Food and Drug Administration. Test Performed by: [facility] [place] [address] Commercial Counsel: Rosie Ruby Ph.D.; CLIA# [id number] Performed By: #### E XHR, 69815-4, MDSDF #### [facility] ([id number]) [address] [place] [address] #### 80158-7, PENNY #### [facility] ([id number]) [address] [place] [address] Flow cytometry specialist re view Álvaro (Unsp spec) [Interp]on 10-11-2023 FLOW CYTOMETRY BM SEE SEPARATE REPORT, REVIEWED BY PATHOLOGIST Normal [facility] Comment on above: Performed By: #### E XHR, 17561-4, MDSDF #### [facility] ([id number]) [address] [place] [address], [place] [address] #### 94459-4, BONMAR #### [facility] ([id number]) [address] [place] [address] IR BX AND ASP BONE MARROW SN [...] on the left iliac bone using an Mediamorph powered bone marrow biopsy system. The bone [...] Guerrero MD on 10/11/2023 9:49 AM Normal [facility] Karyotype Nom (BM)on 10-10- 024 CHROMOSOME BONE MARROW SEE COMMENTS 10/19/2023 02:37 PM Normal [facility] Comment on above: Result Comment: NOTE Test Result Flag Unit RefValue -- Chromosomes, Hematologic, BM Result Summary Normal Interpretation See Note No clonal abnormality was apparent. Since this conventional chromosome study was successful, MDS, Diag FISH was cancelled per lab protocol (Isma Christie et al., CP, 146:86-94, 2016; [facility] MDS Algorithm: [email or web address]-mmfiles/Myelodysplastic_Syndrome_G uideline_to_Diagnosis_and_Follow-up.pdf). Result 46,XY[20] Reason for Referral leukocytosis [...] of the testing process was performed at [facility] [place] site 035782. Released By Tanvi Loo M.D. Test Performed by: [facility] [address] [place] [address] Commercial Counsel: Rosie Ruby Ph.D.; CLIA# [id number] Performed By: #### E XHR, 41441-5, MDSDF #### [facility] ([id number]) [address] [place] [address], [place] [address] #### 00919-2, BONMAR #### [facility] ([id number]) [address] [place] [address], [address] [place] [address] MYELODYSPLASTIC SYNDROME (MD Jack),DIAGNOSTIC FISH, VARIESon 10-11-2023 MYELODYSPLASTIC SYNDROME (MDS),DIAGNOSTIC FISH, VARIES SEE COMMENTS 10/22/2023 08:45 AM Normal [facility] Comment on above: Result Comment: NOTE Test Result Flag Unit RefValue -- MDS, Diagnostic FISH Interpretation TNP MDS, Diagnostic FISH was cancelled on 10/22/2023 at 08:41; Based on other test results additional testing not required. MDS FISH order was cancelled per laboratory protocol (Isma et al., Amer J Clin Pathol 146:86-94, 2016; [facility] MDS Algorithm: [email or web address]-mmfiles/Myelodysplastic_S yndrome_Guideline_ to_Diagnosis_and_Follow-up.pdf) with Probes -RPN1(G)/MECOM(R), -TP53(R)/D17Z1(G), -D8Z2(G)/MYC(R), -N84V005(R)/20QTER(G), -C1Q260(G)/EGR1(R), -D7Z1(G)/K4Y706(R) Test Performed by: [facility] [address] [place] [address] Commercial Counsel: Rosie Ruby Ph.D.; CLIA# [id number] Performed By: #### E XHR, 87170-3, MDSDF #### [facility] ([id number]) [address] [place] [address] #### 40691-2, BONMAR #### [facility] ([id number]) [address] [place] [address], [address] [place] [address] PROTIME AND INRon 10-11-2023 INR Coag (PPP) [Relative time] 1.3 {INR} High 0.8-1.1 [facility] Comment on above: Performed By: #### P INR, CBCA #### [facility] ([id number]) [address] [place] [address] 68439 PT Coag (PPP) [Time] 14.9 s High 9.8-13.2 [facility] Comment on above: Result Comment: NEW REFERENCE RANGE Performed By: #### P INR, CBCA #### [facility] ([id number]) [address] [place] [address] 94343 Surgical Pathologyon 024 Surgical Pathology Normal [facility] Comment on above: Result Comment: [facility] [address] [place] [address] 96698 Bone Marrow Consultation Patient Name:GANGA STINSON:1960 (Age: 63)Gender:MTaken:4Reported:4Physician(s):Nina River ([phone])Copy To:Khadar Guerrero M.D. Rec. #:[id number]: #[id number] Final Pathologic Diagnosis Bone marrow, aspiration and [...] acquisition are identified on maturing myeloid cells. [place] on the lymphoid population demonstrates a mixed population of phenotypically unremarkable T-cells, polyclonal B-cells, and natural killer cells, without a detectable monoclonal population. No monotypic plasma cell population is identified. Immunophenotyping antibodies tested: CD2, CD3, CD4, CD5, CD7, CD8, CD10, CD13, CD16, CD19, CD20 , CD23, CD33, CD34, CD38, CD43, CD45, CD56, CD117, CD123, CD138, [place], Lambda. Cytoplasmic [place]/CD38, Cytoplasmic [place]/CD38, and intrinsic VS38 Immunophenotyping Comment: Immunophenotyping has been used in this diagnostic evaluation. This test was developed and its performance characteristics determined by the [facility] Department. It has not been [...] Out Soledad Huynh MD [place] [address], License number: [id number]. Clinical History Leukocytosis. Gross Description 1. Received in B plus fixative labeled [place]OWAY, clot is a friable portion of hemorrhagic material, 2.2 x 1.0 x 0.4 cm in aggregate. The specimen is submitted entirely in a single cassette. (1, ns, [id number], m1) LADONNA 2. Received in B plus fixative labeled [place], core is a pale osborne-pardo cylindrical segment of bone with adherent hemorrhagic material, 1.0 cm in length and 0.2 cm in diameter. The specimen is submitted entirely in a single cassette following a period of decalcification in Rapid-Delbert Immuno. (1, ns, [id number], m1) LADONNA Comment: Per epic IR procedure [...] Bah on 06-04-2023 Glucose [Mass/Vol] 134 mg/dL [facility] Comment on above: Random Glucose Refer ence Range is dependent on time and content of last meal. Glucose of more than 200 mg/dL in a nonstressed, ambulatory subject supports the diagnosis of Diabetes Mellitus. Gram stain for investigation of transfusion reactionOrdered By: Jonathan Bah on 06-04-2023 Microscopic observation Gram stain Nom (Unsp spec) Prevotella disiens [facility] Cult,Urineon 09-26-2022 Cult,Urine Specimen Description .CLEAN CATCH URINE Culture NO SIGNIFICANT GROWTH Report Status FINAL 09/26/2022 Normal [facility] Comment on above: Performed By: #### C MPX, CDP #### [facility] [address] [place] [address] Commercial Counsel: Khadar Tang MD US RENAL COMPLETEon 09-20-19 [...] Alexander Mcclain DO 09/19/22 Final result Normal [facility] Unremarkable ultraso und of the kidneys and urinary bladder. [facility] RIS CONSOLIDATED EXAMINATION: RETROPERITONEAL ULTRASOUND [...] the kidneys and urinary bladder. [facility] US RENAL COMPLETEOrdered By: Alexander Mcclain on 09-19-2022 [facility] Work Phone: Basic Metabolic Profon 09-18 Anion gap [Moles/Vol] 10 mmol/L Normal 9-17 [facility] Comment on above: Performed By: #### B MP #### [facility] [address] [place] [address] Commercial Counsel: Khadar Tang MD BUN/CRE Ratio 26 High 9-20 [facility] Comment on above: Performed By: #### B MP #### [facility] [address] [place] [address] Commercial Counsel: Khadar Tang MD Calcium [Mass/Vol] 9.3 mg/dL Normal 8.6-10.4 [facility] Comment on above: Performed By: #### B MP #### [facility] [address] [place] [address] Commercial Counsel: Khadar Tang MD Chloride [Moles/Vol] 105 mmol/L Normal 98-107 [facility] Comment on above: Performed By: #### B MP #### [facility] [address] [place] [address] Commercial Counsel: Khadar Tang MD CO2 [Moles/Vol] 22 mmol/L Normal 20-31 [facility] Comment on above: Performed By: #### B MP #### [facility] [address] [place] [address] Commercial Counsel: Khadar aTng MD Creatinine [Mass/Vol] 1.25 mg/dL High 0.70-1.20 [facility] Comment on above: Performed By: #### B MP #### [facility] [address] [place] [address] Commercial Counsel: Khadar Tang MD GFR/1.73 sq M.predicted among non-blacks MDRD (S/P/Bld) [Vol rate/Area] mL/min/{1.73_m2} Normal >60 [facility] Comment on above: Result Comment: These [...] secretion. Performed By: #### B MP #### [facility] [address] [place] [address] [place] [address] Commercial Counsel: Khadar Tang MD Glucose [Mass/Vol] 186 mg/dL High 70-99 [facility] Comment on above: Performed By: #### B MP #### [facility] [address] [place] [address] Commercial Counsel: Khadar Tang MD Potassium [Moles/Vol] 4.1 mmol/L Normal 3.7-5.3 [facility] Comment on above: Performed By: #### B MP #### [facility] [address] [place] [address] Commercial Counsel: Khadar Tang MD Sodium [Moles/Vol] 137 mmol/L Normal 135-144 [facility] Comment on above: Performed By: #### B MP #### [address] [place] [address] Commercial Counsel: Khadar Tang MD Urea nitrogen [Mass/Vol] 32 mg/dL High 8-23 [facility] Comment on above: Performed By: #### B MP #### [address] [place] [address] Commercial Counsel: Khadar Tang MD RENAL COMPLETEon 09-19-19 Radiology Study observation (narrative) [facility] Hemoglobin A1Con 2022 Glucose [Mass/Vol] 171 mg/dL Normal [facility] Comment on above: Result Comment: The ADA and AACC recommend providing the estimated average glucose result to permit better patient understanding of their HBA1c result. Performed By: #### G LYHGB #### [address] [place], [place] [id number] Commercial Counsel: Jeff Casanova MD HbA1c (Bld) [Mass fraction] 7.6 % High 4.0-6.0 [facility] Comment on above: Performed By: #### G LYHGB #### [address] [place], [place] [id number] Commercial Counsel: Jeff Casanova MD OPERATIVE REPORTon 3 OPERATIVE REPORT [address] [address] OPERATIVE REPORT PATIENT NAME: GANGA STINSON : 1960 MED REC NO: [id number] ROOM: ACCOUNT NO: [id number] ADMIT DATE: 2022 PROVIDER: Angeles Nagy DATE OF PROCEDURE: 2022 SURGEON: Dr. Angeles Nagy. JAVA MOBILE DEVELOPER: None. PREOPERATIVE DIAGNOSES: 1. Neurogenic bladder. 2. Urethral stricture. POSTOPERATIVE DIAGNOSES: 1. Neurogenic bladder. 2. Urethral stricture. PROCEDURE PERFORMED: Direct visual internal urethrotomy. ANESTHESIA: General. COMPLICATIONS: None. ESTIMATED BLOOD LOSS: Minimal. SPECIMENS: None. PROSTHESIS: An 18-St Lucian Rowe catheter. DISPOSITION: Stable. FINDINGS: Bulbous urethral stricture. 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 DESCRIPTION OF PROCEDURE: The patient was taken back to the operating room after informed consent including all risks, benefits, and alternatives were obtained. The patient was transferred from the [facility] onto the operating room table, where he was induced under general anesthesia and given IV Ancef for preoperative antibiotic prophylaxis. To begin the case, he was prepped and draped in the normal sterile fashion and placed in dorsal lithotomy. He had a 21-St Lucian sheath with a 30-degree lens passed through [...] then removed the scope and inserted an 18-St Lucian Rowe catheter with ease. He was then awoken from general anesthesia, transferred to the [facility], and taken to the PACU in satisfactory condition by Nursing and Anesthesia Teams. PLAN: The patient will be discharged home per PACU criterion and follow up with me in one week for Rowe catheter removal. ANGELES NAGY [place]/Jerry_CGGIS_I Doc#: [id number] CC: Normal [facility] Basic Metabolic Panelon 04-0 Anion gap [Moles/Vol] 10 mmol/L 9 - 17 mmol/L [facility] Calcium [Mass/Vol] 8.8 mg/dL 8.6 - 10. 4 mg/dL [facility] Chloride [Moles/Vol] 106 mmol/L 98 - 10 7 mmol/L [facility] CO2 [Moles/Vol] 24 mmol/L 20 - 31 mmol/L [facility] Creatinine [Mass/Vol] 1.3 mg/dL High 0.70 - 1.20 mg/dL [facility] GFR/1.73 sq M.predicted MDRD (S/P/Bld) [Vol rate/Area] - PINF [facility] Comment on above: These results are [...] 250 mg/dL High 70 - 99 mg/dL [facility] Interpretation and review of laboratory results Abnormal [facility] Potassium [Moles/Vol] 4.0 mmol/L 3.7 - 5.3 mmol/L [facility] Sodium [Moles/Vol] 140 mmol/L 135 - 144 mmol/L [facility] Urea nitrogen [Mass/Vol] 29 mg/dL High 8 - 23 mg/dL [facility] Urea nitrogen/Creatinine (Bld) [Mass ratio] 22 High 9 - 20 [facility] Basic Metabolic Profon 07-02 Anion gap [Moles/Vol] 10 mmol/L Normal 9-17 [facility] Comment on above: Performed By: #### C MPX, CDP #### [facility] [address] [place] [address] Commercial Counsel: Khadar Tang MD BUN/CRE Ratio 22 High 9-20 [facility] Comment on above: Performed By: #### C MPX, CDP #### [facility] [address] [place] [address] Commercial Counsel: Khadar Tang MD Calcium [Mass/Vol] 8.8 mg/dL Normal 8.6-10.4 [facility] Comment on above: Performed By: #### C MPX, CDP #### [facility] [address] [place] [address] Commercial Counsel: Khadar Tang MD Chloride [Moles/Vol] 106 mmol/L Normal 98-107 [facility] Comment on above: Performed By: #### C MPX, CDP #### [facility] [address] [place] [address] Commercial Counsel: Khadar Tang MD CO2 [Moles/Vol] 24 mmol/L Normal 20-31 [facility] Comment on above: Performed By: #### C MPX, CDP #### [facility] [address] [place] [address] Commercial Counsel: Khadar Tang MD Creatinine [Mass/Vol] 1.30 mg/dL High 0.70-1.20 [facility] Comment on above: Performed By: #### C MPX, CDP #### [facility] [address] [place] [address] Commercial Counsel: Khadar Tang MD GFR/1.73 sq M.predicted among non-blacks MDRD (S/P/Bld) [Vol rate/Area] mL/min/{1.73_m2} Normal >60 [facility] Comment on above: Result Comment: These [...] By: #### C MPX, CDP #### [facility] [address] [place] [address] Commercial Counsel: Khadar Tang MD Glucose [Mass/Vol] 250 mg/dL High 70-99 [facility] Comment on above: Performed By: #### C MPX, CDP #### [facility] [address] [place] [address] Commercial Counsel: Khadar Tang MD Potassium [Moles/Vol] 4.0 mmol/L Normal 3.7-5.3 [facility] Comment on above: Performed By: #### C MPX, CDP #### [facility] [address] [place], [place] [phone] Commercial Counsel: Khadar Tang MD Sodium [Moles/Vol] 140 mmol/L Normal 135-144 [facility] Comment on above: Performed By: #### C MPX, CDP #### [facility] [address] [place], [place] [phone] Commercial Counsel: Khadar Tang MD Urea nitrogen [Mass/Vol] 29 mg/dL High 8-23 [facility] Comment on above: Performed By: #### C MPX, CDP #### [facility] [address] [place], [facility] Commercial Counsel: Khadar Tang MD CBC with Auto Differentialon 07-02-2022 Absolute Eos # 0.80 High [facility] Absolute Immature Granulocyte 0.06 [facility] Absolute Lymph # 1.38 [facility] Absolute [place] # 0.81 [facility] Basophils Absolute [facility] Basophils/100 WBC (Bld) 0 % 0 - 2 % [facility] Eosinophils/100 WBC (Bld) 7 % High 1 - 4 % [facility] Hematocrit (Bld) [Volume fraction] 26.8 % Low 40.7 - 50.3 % [facility] Hemoglobin (Bld) [Mass/Vol] 7.9 g/dL Low 13.0 - 17.0 g/dL [facility] Immature granulocytes/100 WBC (Bld) 1 % High 0 [facility] Interpretation and review of laboratory results Abnormal [facility] Lymphocytes/100 WBC (Bld) 13 % Low 24 - 43 % [facility] MCH (RBC) [Entitic mass] 23.3 pg Low 25.2 - 33.5 pg [facility] MCHC (RBC) [Mass/Vol] 29.5 g/dL 28.4 - 34.8 g/dL [facility] MCV (RBC) [Entitic vol] 79.1 fL Low 82.6 - 102.9 fL [facility] Monocytes/100 WBC (Bld) 8 % 3 - 12 % [facility] NRBC Automated 0.0 0.0 per 100 WBC [facility] Platelet distribution width (Bld) [Ratio] 16.1 % High 11.8 - 14.4 % [facility] Platelet mean volume (Bld) [Entitic vol] 9.1 fL 8.1 - 13.5 fL [facility] Platelets (Bld) [#/Vol] 241 10*3/uL [facility] RBC (Bld) [#/Vol] 3.39 10*6/uL Low 4.21 - 5.77 m/uL [facility] Segmented neutrophils/100 WBC (Bld) 71 % High 36 - 65 % [facility] Segs Absolute 7.79 [facility] WBC (Bld) [#/Vol] 10.9 10*3/uL [facility] CBC with Diffon 07-02-2022 Abs. Basophil <0.03 Normal 0.00-0.20 [facility] Comment on above: Performed By: #### C MPX, CDP #### [facility] [address] [place] [address] Commercial Counsel: Khadar Tang MD Abs.Imm.Granulocyte 0.06 k/uL Normal 0.00-0.30 [facility] Comment on above: Performed By: #### C MPX, CDP #### [facility] [address] [place] [address] Commercial Counsel: Khadar Tang MD Abs.Neutrophil (Seg) 7.79 k/uL Normal 1.50-8.10 [facility] Comment on above: Performed By: #### C MPX, CDP #### [facility] [address] [place] [address] [address] [place], [place] [id number] Commercial Counsel: Khadar Tang MD Basophils/100 WBC (Bld) 0 % Normal 0-2 [facility] Comment on above: Performed By: #### C MPX, CDP #### [address] [place], [place] [phone] Commercial Counsel: Khadar Tang MD Eosinophils (Bld) [#/Vol] 0.80 10*3/uL High 0.00-0.44 [facility] Comment on above: Performed By: #### C MPX, CDP #### [address] [place], [place] [phone] Commercial Counsel: Khadar Tang MD Eosinophils/100 WBC (Bld) 7 % High 1-4 [facility] Comment on above: Performed By: #### C MPX, CDP #### [address] [place], [place] [phone] Commercial Counsel: Khadar Tang MD Erythrocyte distribution width (RBC) [Ratio] 16.1 % High 11.8-14.4 [facility] Comment on above: Performed By: #### C MPX, CDP #### [address] [place], [place] [phone] Commercial Counsel: Khadar Tang MD Hematocrit (Bld) [Volume fraction] 26.8 % Low 40.7-50.3 [facility] Comment on above: Performed By: #### C MPX, CDP #### [address] [place] [address] Commercial Counsel: Khadar Tang MD Hemoglobin (Bld) [Mass/Vol] 7.9 g/dL Low 13.0-17.0 [facility] Comment on above: Performed By: #### C MPX, CDP #### [address] [place], [place] [phone] Commercial Counsel: Khadar Tang MD Immature granulocytes/100 WBC (Bld) 1 % High 0 [facility] Comment on above: Performed By: #### C MPX, CDP #### [facility] [address] [place] [id number] Commercial Counsel: Khadar Tang MD Lymphocytes (Bld) [#/Vol] 1.38 10*3/uL Normal 1.10-3.70 [facility] Comment on above: Performed By: #### C MPX, CDP #### [address] [place], [place] [phone] Commercial Counsel: Khadar Tang MD Lymphocytes/100 WBC (Bld) 13 % Low 24-43 [facility] Comment on above: Performed By: #### C MPX, CDP #### [address] [place], [facility]83 Commercial Counsel: Khadar Tang MD MCH (RBC) [Entitic mass] 23.3 pg Low 25.2-33.5 [facility] Comment on above: Performed By: #### C MPX, CDP #### [address] [place], [place] [phone] Commercial Counsel: Khadar Tang MD MCHC (RBC) [Mass/Vol] 29.5 g/dL Normal 28.4-34.8 [facility] Comment on above: Performed By: #### C MPX, CDP #### [facility] [address] [place] [address] Dr. [place], [place] [phone] Commercial Counsel: Khadar Tang MD MCV (RBC) [Entitic vol] 79.1 fL Low 82.6-102.9 [facility] Comment on above: Performed By: #### C MPX, CDP #### [address] [place] [address] Commercial Counsel: Khadar Tang MD Monocytes (Bld) [#/Vol] 0.81 10*3/uL Normal 0.10-1.20 [facility] Comment on above: Performed By: #### C MPX, CDP #### [facility] [address] [place], [place] [phone] Commercial Counsel: Khadar Tang MD Monocytes/100 WBC (Bld) 8 % Normal 3-12 [facility] Comment on above: Performed By: #### C MPX, CDP #### [facility] [address] [place], [place] [phone] Commercial Counsel: Khadar Tang MD Neutrophil (Seg) 71 % High 36-65 [facility] Comment on above: Performed By: #### C MPX, CDP #### [facility] [address] [place], [place] [phone] Commercial Counsel: Khadar Tang MD NRBC Automated 0.0 per 100 WBC Normal 0.0 [facility] Comment on above: Performed By: #### C MPX, CDP #### [facility] [address] [place] [address] Commercial Counsel: Khadar Tang MD Platelet mean volume (Bld) [Entitic vol] 9.1 fL Normal 8.1-13.5 [facility] Comment on above: Performed By: #### C MPX, CDP #### [facility] [address] [place] [address] Commercial Counsel: Khadar Tang MD Platelets (Bld) [#/Vol] 241 10*3/uL Normal 138-453 [facility] Comment on above: Performed By: #### C MPX, CDP #### [facility] [address] [place], [place] [address] Commercial Counsel: Khadar Tang MD RBC (Bld) [#/Vol] 3.39 10*6/uL Low 4.21-5.77 [facility] Comment on above: Performed By: #### C MPX, CDP #### [facility] [address] [place] [address] Commercial Counsel: Khadar Tang MD WBC (Bld) [#/Vol] 10.9 10*3/uL Normal 3.5-11.3 [facility] Comment on above: Performed By: #### C MPX, CDP #### [facility] [address] [place], [place] [address] Commercial Counsel: Khadar Tagn MD Cult,Woundon 06-27-2022 Cult,Wound Specimen Description .WOUND Special Requests LEG Direct Exam NO NEUTROPHILS SEEN NO ORGANISMS SEEN Culture NO GROWTH Report Status FINAL 06/27/2022 Normal [facility] Comment on above: Performed By: #### C MPX, CDP #### [facility] [address] [place], [place] [address] Commercial Counsel: Khadar Tang MD CBC auto differentialon 05-29 Absolute Eos # 0.63 High [facility] Absolute Immature Granulocyte 0.05 [facility] Absolute Lymph # 1.33 [facility] Absolute [place] # 0.82 [facility] Basophils Absolute [facility] Basophils/100 WBC (Bld) 0 % 0 - 2 % [facility] Eosinophils/100 WBC (Bld) 7 % High 1 - 4 % [facility] Hematocrit (Bld) [Volume fraction] 24.4 % Low 40.7 - 50.3 % [facility] Hemoglobin (Bld) [Mass/Vol] 7.6 g/dL Low 13.0 - 17.0 g/dL [facility] Immature granulocytes/100 WBC (Bld) 1 % High 0 [facility] Interpretation and review of laboratory results Abnormal [facility] Lymphocytes/100 WBC (Bld) 14 % Low 24 - 43 % [facility] MCH (RBC) [Entitic mass] 23.8 pg Low 25.2 - 33.5 pg [facility] MCHC (RBC) [Mass/Vol] 31.1 g/dL 28.4 - 34.8 g/dL [facility] MCV (RBC) [Entitic vol] 76.3 fL Low 82.6 - 102.9 fL [facility] Monocytes/100 WBC (Bld) 9 % 3 - 12 % [facility] NRBC Automated 0.0 0.0 per 100 WBC [facility] Platelet distribution width (Bld) [Ratio] 16.0 % High 11.8 - 14.4 % [facility] Platelet mean volume (Bld) [Entitic vol] 8.8 fL 8.1 - 13.5 fL [facility] Platelets (Bld) [#/Vol] 205 10*3/uL [facility] RBC (Bld) [#/Vol] 3.20 10*6/uL Low 4.21 - 5.77 m/uL [facility] Segmented neutrophils/100 WBC (Bld) 69 % High 36 - 65 % [facility] Segs Absolute 6.49 [facility] WBC (Bld) [#/Vol] 9.3 10*3/uL [facility] CBC with Diffon 06-26-2022 Abs. Basophil <0.03 Normal 0.00-0.20 [facility] Comment on above: Performed By: #### C MPX, CDP #### [facility] [address] [place] [address] Dr. [place], [place] [phone] Commercial Counsel: Khadar Tang MD Abs.Imm.Granulocyte 0.05 k/uL Normal 0.00-0.30 [facility] Comment on above: Performed By: #### C MPX, CDP #### [facility] [address] [place], [place] [address] Commercial Counsel: Khadar Tang MD Abs.Neutrophil (Seg) 6.49 k/uL Normal 1.50-8.10 [facility] Comment on above: Performed By: #### C MPX, CDP #### [facility] [address] [place] [address] [place] [address] Commercial Counsel: Khadar Tang MD Basophils/100 WBC (Bld) 0 % Normal 0-2 [facility] Comment on above: Performed By: #### C MPX, CDP #### [facility] [address] [place] [address] [place], [place] [address] Commercial Counsel: Khadar Tang MD Eosinophils (Bld) [#/Vol] 0.63 10*3/uL High 0.00-0.44 [facility] Comment on above: Performed By: #### C MPX, CDP #### [address] [place] [address] Commercial Counsel: Khadar Tang MD Eosinophils/100 WBC (Bld) 7 % High 1-4 [facility] Comment on above: Performed By: #### C MPX, CDP #### [address] [place] [address] Commercial Counsel: Khadar Tang MD Erythrocyte distribution width (RBC) [Ratio] 16.0 % High 11.8-14.4 [facility] Comment on above: Performed By: #### C MPX, CDP #### [address] [place] [address] Commercial Counsel: Khadar Tang MD Hematocrit (Bld) [Volume fraction] 24.4 % Low 40.7-50.3 [facility] Comment on above: Performed By: #### C MPX, CDP #### [address] [place] [address] Commercial Counsel: Khadar Tang MD Hemoglobin (Bld) [Mass/Vol] 7.6 g/dL Low 13.0-17.0 [facility] Comment on above: Performed By: #### C MPX, CDP #### [address] [place] [address] Commercial Counsel: Khadar Tang MD Immature granulocytes/100 WBC (Bld) 1 % High 0 [facility] Comment on above: Performed By: #### C MPX, CDP #### [facility] [address] [place], [place] [address] Commercial Counsel: Khadar Tang MD Lymphocytes (Bld) [#/Vol] 1.33 10*3/uL Normal 1.10-3.70 [facility] Comment on above: Performed By: #### C MPX, CDP #### [facility] [address] [place] [address] [place], [place] [address] Commercial Counsel: Khadar Tang MD Lymphocytes/100 WBC (Bld) 14 % Low 24-43 [facility] Comment on above: Performed By: #### C MPX, CDP #### [address] [place], [place] [phone] Commercial Counsel: Khadar Tang MD MCH (RBC) [Entitic mass] 23.8 pg Low 25.2-33.5 [facility] Comment on above: Performed By: #### C MPX, CDP #### [address] [place], [place] [phone] Commercial Counsel: Khadar Tang MD MCHC (RBC) [Mass/Vol] 31.1 g/dL Normal 28.4-34.8 [facility] Comment on above: Performed By: #### C MPX, CDP #### [facility] [address] [place] [address] Dr. [place], [place] [phone] Commercial Counsel: Khadar Tang MD MCV (RBC) [Entitic vol] 76.3 fL Low 82.6-102.9 [facility] Comment on above: Performed By: #### C MPX, CDP #### [address] [place] [address] Commercial Counsel: Khadar Tang MD Monocytes (Bld) [#/Vol] 0.82 10*3/uL Normal 0.10-1.20 [facility] Comment on above: Performed By: #### C MPX, CDP #### [facility] [address] [place], [place] [phone] Commercial Counsel: Khadar Tang MD Monocytes/100 WBC (Bld) 9 % Normal 3-12 [facility] Comment on above: Performed By: #### C MPX, CDP #### [facility] [address] [place], [facility]83 Commercial Counsel: Khadar Tang MD Neutrophil (Seg) 69 % High 36-65 [facility] Comment on above: Performed By: #### C MPX, CDP #### [facility] [address] [place], [place] [phone] Commercial Counsel: Khadar Tang MD NRBC Automated 0.0 per 100 WBC Normal 0.0 [facility] Comment on above: Performed By: #### C MPX, CDP #### [address] [place], [facility]83 Commercial Counsel: Khadar Tang MD Platelet mean volume (Bld) [Entitic vol] 8.8 fL Normal 8.1-13.5 [facility] Comment on above: Performed By: #### C MPX, CDP #### [address] [place], [place] [phone] Commercial Counsel: Khadar Tang MD Platelets (Bld) [#/Vol] 205 10*3/uL Normal 138-453 [facility] Comment on above: Performed By: #### C MPX, CDP #### [address] [place], [place] [phone] Commercial Counsel: Khadar Tang MD RBC (Bld) [#/Vol] 3.20 10*6/uL Low 4.21-5.77 [facility] Comment on above: Performed By: #### C MPX, CDP #### [facility] [address] [place] [address] [place], [place] [address] Commercial Counsel: Khadar Tang MD WBC (Bld) [#/Vol] 9.3 10*3/uL Normal 3.5-11.3 [facility] Comment on above: Performed By: #### C MPX, CDP #### [facility] [address] [place], [place] [address] Commercial Counsel: Khadar Tang MD EKG Rhythm Stripon 3 rd [facility] Glucose, Whole Bloodon 06-26 Glucose [Mass/Vol] 95 mg/dL 74 - 100 mg/dL [facility] No Panel Informationon 06-26 No dictation [facility] Work Phone: [facility] Work Phone: Surgical Pathologyon 023 Surgical [...] SURGICAL PATHOLOGY CONSULTATION Patient Name: GANGA STINSON [facility] Rec: [id number] Path Number: [id number] [facility] [employer] [facility] ANATOMIC PATHOLOGY [address] [place] [id number] Normal [facility] Comment on above: Performed By: #### C MPX, CDP #### [facility] [address] [place], [place] [address] Commercial Counsel: Khadar Tang MD Blood occult stool #1on 05-29 Date, Stool #1 3 [facility] Comment on above: 30 23 Hemoglobin.gastrointe stinal spec 1 Ql (Stl) Negative NEGATIVE [facility] Time, Stool #1 1945 [facility] CBC auto differentialon 05-29 Absolute Eos # 0.63 High [facility] Absolute Immature Granulocyte 0.07 [facility] Absolute Lymph # 1.63 [facility] Absolute [place] # 0.76 [facility] Basophils Absolute [facility] Basophils/100 WBC (Bld) 0 % 0 - 2 % [facility] Eosinophils/100 WBC (Bld) 7 % High 1 - 4 % [facility] Hematocrit (Bld) [Volume fraction] 24.6 % Low 40.7 - 50.3 % [facility] Hemoglobin (Bld) [Mass/Vol] 7.6 g/dL Low 13.0 - 17.0 g/dL [facility] Immature granulocytes/100 WBC (Bld) 1 % High 0 [facility] Interpretation and review of laboratory results Abnormal [facility] Lymphocytes/100 WBC (Bld) 19 % Low 24 - 43 % [facility] MCH (RBC) [Entitic mass] 23.7 pg Low 25.2 - 33.5 pg [facility] MCHC (RBC) [Mass/Vol] 30.9 g/dL 28.4 - 34.8 g/dL [facility] MCV (RBC) [Entitic vol] 76.6 fL Low 82.6 - 102.9 fL [facility] Monocytes/100 WBC (Bld) 9 % 3 - 12 % [facility] NRBC Automated 0.0 0.0 per 100 WBC [facility] Platelet distribution width (Bld) [Ratio] 15.9 % High 11.8 - 14.4 % [facility] Platelet mean volume (Bld) [Entitic vol] 8.9 fL 8.1 - 13.5 fL [facility] Platelets (Bld) [#/Vol] 223 10*3/uL [facility] RBC (Bld) [#/Vol] 3.21 10*6/uL Low 4.21 - 5.77 m/uL [facility] Segmented neutrophils/100 WBC (Bld) 64 % 36 - 65 % [facility] Segs Absolute 5.60 [facility] WBC (Bld) [#/Vol] 8.7 10*3/uL [facility] CBC with Diffon 06-25-2022 Abs. Basophil <0.03 Normal 0.00-0.20 [facility] Comment on above: Performed By: #### T ROPI #### [facility] [address] [place] [address] Dr. [place] [phone] Commercial Counsel: Khadar Tang MD Abs.Imm.Granulocyte 0.07 k/uL Normal 0.00-0.30 [facility] Comment on above: Performed By: #### T ROPI #### [facility] [address] [place], [place] [address] Commercial Counsel: Khadar Tang MD Abs.Neutrophil (Seg) 5.60 k/uL Normal 1.50-8.10 [facility] Comment on above: Performed By: #### T ROPI #### [address] [place] [phone] Commercial Counsel: Khadar Tang MD Basophils/100 WBC (Bld) 0 % Normal 0-2 [facility] Comment on above: Performed By: #### T ROPI #### [facility] [address] [place], [facility]83 Commercial Counsel: Khadar Tang MD Eosinophils (Bld) [#/Vol] 0.63 10*3/uL High 0.00-0.44 [facility] Comment on above: Performed By: #### T ROPI #### [facility] [address] [place], [place] [address] Commercial Counsel: Khadar Tang MD Eosinophils/100 WBC (Bld) 7 % High 1-4 [facility] Comment on above: Performed By: #### T ROPI #### [facility] [address] [place], [place] [phone] Commercial Counsel: Khadar Tang MD Erythrocyte distribution width (RBC) [Ratio] 15.9 % High 11.8-14.4 [facility] Comment on above: Performed By: #### T ROPI #### [address] [place], [place] [phone] Commercial Counsel: Khadar Tang MD Hematocrit (Bld) [Volume fraction] 24.6 % Low 40.7-50.3 [facility] Comment on above: Performed By: #### T ROPI #### [address] [place], [facility]83 Commercial Counsel: Khadar Tang MD Hemoglobin (Bld) [Mass/Vol] 7.6 g/dL Low 13.0-17.0 [facility] Comment on above: Performed By: #### T ROPI #### [address] [place], [place] [address] Commercial Counsel: Khadar Tang MD Immature granulocytes/100 WBC (Bld) 1 % High 0 [facility] Comment on above: Performed By: #### T ROPI #### [facility] [address] [place] [address] Dr. [place], [facility]83 Commercial Counsel: Khadar Tang MD Lymphocytes (Bld) [#/Vol] 1.63 10*3/uL Normal 1.10-3.70 [facility] Comment on above: Performed By: #### T ROPI #### [address] [place], [place] [phone] Commercial Counsel: Khadar Tang MD Lymphocytes/100 WBC (Bld) 19 % Low 24-43 [facility] Comment on above: Performed By: #### T ROPI #### [facility] [address] [place], [facility]83 Commercial Counsel: Khadar Tang MD MCH (RBC) [Entitic mass] 23.7 pg Low 25.2-33.5 [facility] Comment on above: Performed By: #### T ROPI #### [address] [place], [facility]83 Commercial Counsel: Khadar Tang MD MCHC (RBC) [Mass/Vol] 30.9 g/dL Normal 28.4-34.8 [facility] Comment on above: Performed By: #### T ROPI #### [address] [place], [facility]83 Commercial Counsel: Khadar Tang MD MCV (RBC) [Entitic vol] 76.6 fL Low 82.6-102.9 [facility] Comment on above: Performed By: #### T ROPI #### [address] [place], [facility]83 Commercial Counsel: Khadar Tang MD Monocytes (Bld) [#/Vol] 0.76 10*3/uL Normal 0.10-1.20 [facility] Comment on above: Performed By: #### T ROPI #### [address] [place], [facility]83 Commercial Counsel: Khadar Tang MD Monocytes/100 WBC (Bld) 9 % Normal 3-12 [facility] Comment on above: Performed By: #### T ROPI #### [facility] [address] [place] [address] Dr. [place], [facility]83 Commercial Counsel: Khadar Tang MD Neutrophil (Seg) 64 % Normal 36-65 [facility] Comment on above: Performed By: #### T ROPI #### [facility] [address] [place] [address] Dr. [place], [facility]83 Commercial Counsel: Khadar Tang MD NRBC Automated 0.0 per 100 WBC Normal 0.0 [facility] Comment on above: Performed By: #### T ROPI #### [facility] [address] [place], [place] [phone] Commercial Counsel: Khadar Tang MD Platelet mean volume (Bld) [Entitic vol] 8.9 fL Normal 8.1-13.5 [facility] Comment on above: Performed By: #### T ROPI #### [facility] [address] [place], [place] [phone] Commercial Counsel: Khadar Tang MD Platelets (Bld) [#/Vol] 223 10*3/uL Normal 138-453 [facility] Comment on above: Performed By: #### T ROPI #### [address] [place], [facility]83 Commercial Counsel: Khadar Tang MD RBC (Bld) [#/Vol] 3.21 10*6/uL Low 4.21-5.77 [facility] Comment on above: Performed By: #### T ROPI #### [address] [place], [place] [phone] Commercial Counsel: Khadar Tang MD WBC (Bld) [#/Vol] 8.7 10*3/uL Normal 3.5-11.3 [facility] Comment on above: Performed By: #### T ROPI #### [facility] [address] [place] [address] Dr. [place], [place] [phone] Commercial Counsel: Khadar Tang MD Comp Metabolic Pr/rfx MGon 0 06-25-2022 Albumin [Mass/Vol] 2.8 g/dL Low 3.5-5.2 [facility] Comment on above: Performed By: #### T ROPI #### [facility] [address] [place], [place] [address] Commercial Counsel: Khadar Tang MD Albumin/Glob Ratio 0.7 Low 1.0-2.5 [facility] Comment on above: Performed By: #### T ROPI #### [facility] [address] [place], [place] [phone] Commercial Counsel: Khadar Tang MD Alkaline Phos 75 U/L Normal 40-129 [facility] Comment on above: Performed By: #### T ROPI #### [facility] [address] [place], [place] [phone] Commercial Counsel: Khadar Tang MD ALT [Catalytic activity/Vol] 9 U/L Normal 5-41 [facility] Comment on above: Performed By: #### T ROPI #### [facility] [address] [place], [place] [phone] Commercial Counsel: Khadar Tang MD Anion gap [Moles/Vol] 6 mmol/L Low 9-17 [facility] Comment on above: Performed By: #### T ROPI #### [facility] [address] [place], [place] [phone] Commercial Counsel: Khadar Tang MD AST [Catalytic activity/Vol] 10 U/L Normal <40 [facility] Comment on above: Performed By: #### T ROPI #### [facility] [address] [place], [place] [phone] Commercial Counsel: Khadar Tang MD Bilirubin [Mass/Vol] 0.3 mg/dL Normal 0.3-1.2 [facility] Comment on above: Performed By: #### T ROPI #### [facility] [address] [place], [place] [phone] Commercial Counsel: Khadar Tang MD BUN/CRE Ratio 20 Normal 9-20 [facility] Comment on above: Performed By: #### T ROPI #### [facility] [address] [place], [place] [phone] Commercial Counsel: Khadar Tang MD Calcium [Mass/Vol] 8.7 mg/dL Normal 8.6-10.4 [facility] Comment on above: Performed By: #### T ROPI #### [facility] [address] [place], [place] [phone] Commercial Counsel: Khadar Tang MD Chloride [Moles/Vol] 113 mmol/L High 98-107 [facility] Comment on above: Performed By: #### T ROPI #### [facility] [address] [place] [address] Commercial Counsel: Khadar Tang MD CO2 [Moles/Vol] 20 mmol/L Normal 20-31 [facility] Comment on above: Performed By: #### T ROPI #### [facility] [address] [place], [place] [phone] Commercial Counsel: Khadar Tang MD Creatinine [Mass/Vol] 0.97 mg/dL Normal 0.70-1.20 [facility] Comment on above: Performed By: #### T ROPI #### [facility] [address] [place], [place] [address] Commercial Counsel: Khadar Tang MD GFR/1.73 sq M.predicted among non-blacks MDRD (S/P/Bld) [Vol rate/Area] mL/min/{1.73_m2} Normal >60 [facility] Comment on above: Result Comment: These [...] secretion. Performed By: #### T ROPI #### [facility] [address] [place], [place] [address] Commercial Counsel: Khadar Tang MD Glucose [Mass/Vol] 144 mg/dL High 70-99 [facility] Comment on above: Performed By: #### T ROPI #### [facility] [address] [place], [place] [address] Commercial Counsel: Khadar Tang MD Potassium [Moles/Vol] 4.5 mmol/L Normal 3.7-5.3 [facility] Comment on above: Performed By: #### T ROPI #### [facility] [address] [place], [place] [phone] Commercial Counsel: Khadar Tang MD Protein [Mass/Vol] 6.7 g/dL Normal 6.4-8.3 [facility] Comment on above: Performed By: #### T ROPI #### [facility] [address] [place], [place] [phone] Commercial Counsel: Khadar Tang MD Sodium [Moles/Vol] 139 mmol/L Normal 135-144 [facility] Comment on above: Performed By: #### T ROPI #### [facility] [address] [place] [address] Commercial Counsel: Khadar Tang MD Urea nitrogen [Mass/Vol] 19 mg/dL Normal 8-23 [facility] Comment on above: Performed By: #### T ROPI #### [facility] [address] [place], [place] [address] Commercial Counsel: Khadar Tang MD Comprehensive Metabolic Pane l w/ Reflex to MGon 06-25-2022 Albumin [Mass/Vol] 2.8 g/dL Low 3.5 - 5.2 g/dL [facility] Albumin/Globulin [Mass ratio] 0.7 {ratio} Low 1.0 - 2.5 [facility] ALP [Catalytic activity/Vol] 75 U/L 40 - 129 U/L [facility] ALT [Catalytic activity/Vol] 9 U/L 5 - 41 U/L [facility] Anion gap [Moles/Vol] 6 mmol/L Low 9 - 17 mmol/L [facility] AST [Catalytic activity/Vol] 10 U/L NINF - 40 U/L [facility] Bilirubin [Mass/Vol] 0.3 mg/dL 0.3 - 1 .2 mg/dL [facility] Calcium [Mass/Vol] 8.7 mg/dL 8.6 - 10. 4 mg/dL [facility] Chloride [Moles/Vol] 113 mmol/L High 98 - 10 7 mmol/L [facility] CO2 [Moles/Vol] 20 mmol/L 20 - 31 mmol/L [facility] Creatinine [Mass/Vol] 0.97 mg/dL 0.70 - 1.20 mg/dL [facility] GFR/1.73 sq M.predicted MDRD (S/P/Bld) [Vol rate/Area] - PINF [facility] Comment on above: These results are [...] High 70 - 99 mg/dL [facility] Interpretation and review of laboratory results Abnormal [facility] Potassium [Moles/Vol] 4.5 mmol/L 3.7 - 5.3 mmol/L [facility] Protein [Mass/Vol] 6.7 g/dL 6.4 - 8.3 g/dL [facility] Sodium [Moles/Vol] 139 mmol/L 135 - 144 mmol/L [facility] Urea nitrogen [Mass/Vol] 19 mg/dL 8 - 23 mg/dL [facility] Urea nitrogen/Creatinine (Bld) [Mass ratio] 20 9 - 20 [facility] Cult,Woundon 06-25-2022 Cult,Wound Specimen Description .BUTTOCK Direct Exam FEW NEUTROPHILS MODERATE GRAM POSITIVE COCCI IN PAIRS MODERATE GRAM POSITIVE RODS Culture NORMAL SKIN ROBBIE Report Status FINAL 06/25/2022 [facility] Comment on above: Performed By: #### T ROPI #### [facility] [address] [place] [address] Commercial Counsel: Khadar Tang MD EKG Rhythm Stripon 3 [facility] ml [facility] Occult Blood, Fecalon 2022 Occult Blood 1 Negative Normal NEG [facility] Comment on above: Performed By: #### C MPX, CDP #### [facility] [address] [place] [address] [place] [address] Commercial Counsel: Khadar Tang MD Specimen 1 Date [facility] Comment on above: Result Comment: Performed By: #### C MPX, CDP #### [facility] [address] [place] [address] [place] [address] Commercial Counsel: Khadar Tang MD Specimen 1 Time 1944 [facility] Comment on above: Performed By: #### C MPX, CDP #### [facility] [address] [place] [address] Dr. [place], [place] [phone] Commercial Counsel: Khadar Tang MD Surgical Pathologyon 023 Surgical [...] SURGICAL PATHOLOGY CONSULTATION Patient Name: GANGA STINSON [facility] Rec: [id number] Path Number: [id number] [facility] PATHOLOGISTS [facility] [address] [place] [address]. [place], [place] [address] Normal [facility] Comment on above: Performed By: #### C RICHX, CDP #### [facility] [address] [place] [address] Commercial Counsel: Khadar Tang MD TYPE AND SCREENon 06-25-2022 ABO/Rh Negative [facility] Arm Band Number [id number] [facility] Blood Bank Blood Product Expiration Date [id number] [facility] Blood Bank ISBT Product Blood Type 9500 [facility] Blood Bank Unit Type and Rh Negative [facility] Blood product type Nom (BPU) Leukocyte Reduced Red Cell [facility] Blood product unit ID (Dose) [#] [id number] [facility] Crossmatch Result COMPATIBLE [facility] Dispense Status TRANSFUSED [facility] Expiration Date 06/27/2022,2359 [facility] Product Code Blood Bank [id number] [facility] Transfusion Status OK TO TRANSFUSE B ON [facility] Unit Divison 0 [facility] Unit Issue Date/Time [id number] [facility] APTTon 06-24-2022 aPTT Coag (Bld) [Time] 35.6 s High 26.8-34.8 [facility] Comment on above: Result Comment: IV Heparin Therapy Range: 62.0-94.0 Performed By: #### C RICHX, CDP #### [facility] [address] [place] [address] Commercial Counsel: Khadar Tang MD B12/Folate Panelon Cobalamin (Vitamin B12) [Mass/Vol] 446 pg/mL Normal 232-1245 [facility] Comment on above: Performed By: #### C MPX, CDP #### [facility] [address] [place] [address] Commercial Counsel: Khadar Tang MD Folic Acid 8.2 ng/mL Normal >4.8 [facility] Comment on above: Performed By: #### C RICHX, CDP #### [facility] [address] [place] [address] Commercial Counsel: Khadar Tang MD CBC auto differentialon 05-28 Absolute Eos # 0.46 High [facility] Absolute Immature Granulocyte 0.07 [facility] Absolute Lymph # 1.52 [facility] Absolute [place] # 0.53 [facility] Basophils (Bld) [#/Vol] 0.00 10*3/uL [facility] Hematocrit (Bld) [Volume fraction] 21.7 % Low 40.7 - 50.3 % [facility] Hemoglobin (Bld) [Mass/Vol] 6.6 g/dL Critically low 13.0 - 17.0 g/dL [facility] Interpretation and review of laboratory results Abnormal [facility] MCH (RBC) [Entitic mass] 23.4 pg Low 25.2 - 33.5 pg [facility] MCHC (RBC) [Mass/Vol] 30.4 g/dL 28.4 - 34.8 g/dL [facility] MCV (RBC) [Entitic vol] 77.0 fL Low 82.6 - 102.9 fL [facility] Morphology Álvaro (Bld) [Interp] HYPOCHROMIA PRESENT [facility] NRBC Automated 0.0 0.0 per 100 WBC [facility] Platelet distribution width (Bld) [Ratio] 16.2 % High 11.8 - 14.4 % [facility] Platelet mean volume (Bld) [Entitic vol] 8.9 fL 8.1 - 13.5 fL [facility] Platelets (Bld) [#/Vol] 208 10*3/uL [facility] RBC (Bld) [#/Vol] 2.82 10*6/uL Low 4.21 - 5.77 m/uL [facility] Segmented neutrophils/100 WBC (Bld) 61 % 36 - 65 % [facility] Segs Absolute 4.02 [facility] WBC (Bld) [#/Vol] 6.6 10*3/uL [facility] CBC with Diffon 06-24-2022 Abs. Basophil 0.00 k/uL Normal 0.0-0.2 [facility] Comment on above: Performed By: #### C MPX, CDP #### [facility] [address] [place] [address] Commercial Counsel: Khadar Tang MD Abs.Imm.Granulocyte 0.07 k/uL Normal 0.00-0.30 [facility] Comment on above: Performed By: #### C MPX, CDP #### [facility] [address] [place] [address] Dr. [place], [place] [address] Commercial Counsel: Khadar Tang MD Abs.Neutrophil (Seg) 4.02 k/uL Normal 1.50-8.10 [facility] Comment on above: Performed By: #### C MPX, CDP #### [address] [place] [address] Commercial Counsel: Khadar Tang MD Eosinophils (Bld) [#/Vol] 0.46 10*3/uL High 0.00-0.44 [facility] Comment on above: Performed By: #### C MPX, CDP #### [facility] [address] [place] [address] Commercial Counsel: Khadar Tang MD Lymphocytes (Bld) [#/Vol] 1.52 10*3/uL Normal 1.10-3.70 [facility] Comment on above: Performed By: #### C MPX, CDP #### [facility] [address] [place], [place] [phone] Commercial Counsel: Khadar Tang MD Monocytes (Bld) [#/Vol] 0.53 10*3/uL Normal 0.10-1.20 [facility] Comment on above: Performed By: #### C MPX, CDP #### [facility] [address] [place], [place] [phone] Commercial Counsel: Khadar Tang MD Morphology Álvaro (Bld) [Interp] HYPOCHROMIA Normal [facility] Comment on above: Result Comment: PRES ENT Performed By: #### C MPX, CDP #### [facility] [address] [place], [place] [phone] Commercial Counsel: Khadar Tang MD Neutrophil (Seg) 61 % Normal 36-65 [facility] Comment on above: Performed By: #### C MPX, CDP #### [address] [place], [place] [phone] Commercial Counsel: Khadar Tang MD Erythrocyte distribution width (RBC) [Ratio] 16.2 % High 11.8-14.4 [facility] Comment on above: Performed By: #### C MPX, CDP #### [address] [place], [place] [phone] Commercial Counsel: Khadar Tang MD Hematocrit (Bld) [Volume fraction] 21.7 % Low 40.7-50.3 [facility] Comment on above: Performed By: #### C MPX, CDP #### [address] [place], [place] [phone] Commercial Counsel: Khadar Tang MD Hemoglobin (Bld) [Mass/Vol] 6.6 g/dL Critically low 13.0-17.0 [facility] Comment on above: Performed By: #### C MPX, CDP #### [address] [place], [place] [phone] Commercial Counsel: Khadar Tang MD MCH (RBC) [Entitic mass] 23.4 pg Low 25.2-33.5 [facility] Comment on above: Performed By: #### C MPX, CDP #### [facility] [address] [place], [facility] Commercial Counsel: Khadar Tang MD MCHC (RBC) [Mass/Vol] 30.4 g/dL Normal 28.4-34.8 [facility] Comment on above: Performed By: #### C MPX, CDP #### [address] [place], [facility] Commercial Counsel: Khadar Tang MD MCV (RBC) [Entitic vol] 77.0 fL Low 82.6-102.9 [facility] Comment on above: Performed By: #### C MPX, CDP #### [address] [place] [phone] Commercial Counsel: Khadar Tang MD NRBC Automated 0.0 per 100 WBC Normal 0.0 [facility] Comment on above: Performed By: #### C MPX, CDP #### [address] [place], [place] [phone] Commercial Counsel: Khadar Tang MD Platelet mean volume (Bld) [Entitic vol] 8.9 fL Normal 8.1-13.5 [facility] Comment on above: Performed By: #### C MPX, CDP #### [address] [place], [facility] Commercial Counsel: Khadar Tang MD Platelets (Bld) [#/Vol] 208 10*3/uL Normal 138-453 [facility] Comment on above: Performed By: #### C MPX, CDP #### [address] [place] [address] Commercial Counsel: Khadar Tang MD RBC (Bld) [#/Vol] 2.82 10*6/uL Low 4.21-5.77 [facility] Comment on above: Performed By: #### C MPX, CDP #### [address] [place], [place] [phone] Commercial Counsel: Khadar Tang MD WBC (Bld) [#/Vol] 6.6 10*3/uL Normal 3.5-11.3 [facility] Comment on above: Performed By: #### C MPX, CDP #### [address] [place], [place] [phone] Commercial Counsel: Khadar Tang MD Basophils/100 WBC (Bld) 0 % Normal 0-2 [facility] Comment on above: Performed By: #### C MPX, CDP #### [address] [place], [place] [phone] Commercial Counsel: Khadar Tang MD Eosinophils/100 WBC (Bld) 7 % High 1-4 [facility] Comment on above: Performed By: #### C MPX, CDP #### [address] [place], [place] [phone] Commercial Counsel: Khadar Tang MD Immature granulocytes/100 WBC (Bld) 1 % High 0 [facility] Comment on above: Performed By: #### C MPX, CDP #### [address] [place], [place] [phone] Commercial Counsel: Khadar Tang MD Lymphocytes/100 WBC (Bld) 23 % Low 24-43 [facility] Comment on above: Performed By: #### C MPX, CDP #### [address] [place] [address] Commercial Counsel: Khadar Tang MD Monocytes/100 WBC (Bld) 8 % Normal 3-12 [facility] Comment on above: Performed By: #### C MPX, CDP #### [address] [place] [address] Commercial Counsel: Khadar Tang MD Comp Metabolic Pr/rfx MGon 0 - Albumin [Mass/Vol] 2.4 g/dL Low 3.5-5.2 [facility] Comment on above: Performed By: #### C MPX, CDP #### [facility] [address] [place], [place] [address] Commercial Counsel: Khadar Tang MD Albumin/Glob Ratio 0.6 Low 1.0-2.5 [facility] Comment on above: Performed By: #### C MPX, CDP #### [facility] [address] [place], [place] [phone] Commercial Counsel: Khadar Tang MD Alkaline Phos 75 U/L Normal 40-129 [facility] Comment on above: Performed By: #### C MPX, CDP #### [facility] [address] [place], [place] [phone] Commercial Counsel: Khadar Tang MD ALT [Catalytic activity/Vol] 9 U/L Normal 5-41 [facility] Comment on above: Performed By: #### C MPX, CDP #### [facility] [address] [place] [address] Dr. [place], [place] [phone] Commercial Counsel: Khadar Tang MD Anion gap [Moles/Vol] 7 mmol/L Low 9-17 [facility] Comment on above: Performed By: #### C MPX, CDP #### [facility] [address] [place], [place] [phone] Commercial Counsel: Khadar Tang MD AST [Catalytic activity/Vol] 11 U/L Normal <40 [facility] Comment on above: Performed By: #### C MPX, CDP #### [facility] [address] [place], [place] [phone] Commercial Counsel: Khadar Tang MD Bilirubin [Mass/Vol] mg/dL Low 0.3-1.2 [facility] Comment on above: Performed By: #### C MPX, CDP #### [facility] [address] [place], [place] [address] Commercial Counsel: Khadar Tang MD BUN/CRE Ratio 23 High 9-20 [facility] Comment on above: Performed By: #### C MPX, CDP #### [facility] [address] [place], [place] [phone] Commercial Counsel: Khadar Tang MD Calcium [Mass/Vol] 8.5 mg/dL Low 8.6-10.4 [facility] Comment on above: Performed By: #### C MPX, CDP #### [facility] [address] [place], [place] [phone] Commercial Counsel: Khadar Tang MD Chloride [Moles/Vol] 115 mmol/L High 98-107 [facility] Comment on above: Performed By: #### C MPX, CDP #### [facility] [address] [place], [place] [phone] Commercial Counsel: Khadar Tang MD CO2 [Moles/Vol] 18 mmol/L Low 20-31 [facility] Comment on above: Performed By: #### C MPX, CDP #### [facility] [address] [place] [address] Commercial Counsel: Khadar Tang MD Creatinine [Mass/Vol] 1.11 mg/dL Normal 0.70-1.20 [facility] Comment on above: Performed By: #### C MPX, CDP #### [facility] [address] [place], [place] [address] Commercial Counsel: Khadar Tang MD GFR/1.73 sq M.predicted among non-blacks MDRD (S/P/Bld) [Vol rate/Area] mL/min/{1.73_m2} Normal >60 [facility] Comment on above: Result Comment: These [...] By: #### C MPX, CDP #### [facility] [address] [place], [place] [address] Commercial Counsel: Khadar Tang MD Glucose [Mass/Vol] 137 mg/dL High 70-99 [facility] Comment on above: Performed By: #### C MPX, CDP #### [facility] [address] [place], [place] [address] Commercial Counsel: Khadar Tang MD Potassium [Moles/Vol] 4.9 mmol/L Normal 3.7-5.3 [facility] Comment on above: Performed By: #### C MPX, CDP #### [facility] [address] [place] [address] Dr. [place], [place] [phone] Commercial Counsel: Khadar Tang MD Protein [Mass/Vol] 6.3 g/dL Low 6.4-8.3 [facility] Comment on above: Performed By: #### C MPX, CDP #### [facility] [address] [place] [address] Dr. [place], [place] [phone] Commercial Counsel: Khadar Tang MD Sodium [Moles/Vol] 140 mmol/L Normal 135-144 [facility] Comment on above: Performed By: #### C MPX, CDP #### [facility] [address] [place] [address] Commercial Counsel: Khadar Tang MD Urea nitrogen [Mass/Vol] 26 mg/dL High 8-23 [facility] Comment on above: Performed By: #### C MPX, CDP #### [facility] [address] [place] [address] Dr. [place], [place] [phone] Commercial Counsel: Khadar Tang MD Comprehensive Metabolic Pane l w/ Reflex to MGon 06-24-2022 Albumin [Mass/Vol] 2.4 g/dL Low 3.5 - 5.2 g/dL [facility] Albumin/Globulin [Mass ratio] 0.6 {ratio} Low 1.0 - 2.5 [facility] ALP [Catalytic activity/Vol] 75 U/L 40 - 129 U/L [facility] ALT [Catalytic activity/Vol] 9 U/L 5 - 41 U/L [facility] Anion gap [Moles/Vol] 7 mmol/L Low 9 - 17 mmol/L [facility] AST [Catalytic activity/Vol] 11 U/L NINF - 40 U/L [facility] Bilirubin [Mass/Vol] mg/dL Low 0.3 - 1 .2 mg/dL [facility] [employer] Calcium [Mass/Vol] 8.5 mg/dL Low 8.6 - 10. 4 mg/dL [facility] Chloride [Moles/Vol] 115 mmol/L High 98 - 10 7 mmol/L [facility] CO2 [Moles/Vol] 18 mmol/L Low 20 - 31 mmol/L [facility] Creatinine [Mass/Vol] 1.11 mg/dL 0.70 - 1.20 mg/dL [facility] GFR/1.73 sq M.predicted MDRD (S/P/Bld) [Vol rate/Area] - PINF [facility] Comment on above: These results are [...] 137 mg/dL High 70 - 99 mg/dL [facility] Interpretation and review of laboratory results Abnormal [facility] [employer] Potassium [Moles/Vol] 4.9 mmol/L 3.7 - 5.3 mmol/L [facility] Protein [Mass/Vol] 6.3 g/dL Low 6.4 - 8.3 g/dL [employer] Sodium [Moles/Vol] 140 mmol/L 135 - 144 mmol/L [employer] Urea nitrogen [Mass/Vol] 26 mg/dL High 8 - 23 mg/dL [employer] Urea nitrogen/Creatinine (Bld) [Mass ratio] 23 High 9 - 20 [employer] [facility] Culture, Wound Aerobic Onlyo n 06-24-2022 Interpretation and review of laboratory results Abnormal [employer] Microorganism identified Cx Nom (Unsp spec) NORMAL SKIN ROBBIE [employer] [facility] Microorganism or agent identified Nom (Unsp spec) FEW NEUTROPHILS Abnormal [employer] Specimen Description .BUTTOCK [employer] EKG 12 Leadon 06-24-2022 Atrial Rate 64 BPM [employer] Work Phone: P [place] 51 degrees [employer] Work Phone: P-R Interval 174 ms [employer] Work Phone: Q-T Interval 394 ms [employer] Work Phone: QRS Duration 94 ms [employer] Work Phone: QTc Calculation (Bazett) 406 ms [employer] Work Phone: R [place] 20 degrees [employer] Work Phone: T [place] 22 degrees [employer] Work Phone: Ventricular Rate 64 BPM [facility] [employer] Work Phone: Normal sinus rhythm Inferior infarct , age undetermined Abnormal ECG When compared with ECG of 22-JUN-2022 17:28, Minimal criteria for Inferior infarct is now Present Confirmed by Michelle Noe MD ([id number]) on 06/24/2022 10:31:37 PM [facility] RADIOLOGY Michelle Noe MD - 06/24/2022 Normal sinus rhythm Inferior infarct , age undetermined Abnormal ECG When compared with ECG of 22-JUN-2022 17:28, Minimal criteria for Inferior infarct is now Present Confirmed by Michelle Noe MD ([id number]) on 06/24/2022 10:31:37 PM [facility] Work Phone: [facility] [employer] [employer] Work Phone: EKG Rhythm Stripon 3 [facility] ML [facility] Echocardiogram complete 2D w ith doppler with coloron 06-24-2022 Left ventricular Ejection fraction 60 [facility] Work Phone: LVEF MODALITY ECHO [facility] [employer] Work Phone: [facility] Transthoracic Echocardiography Report (TTE) Patient Name ALLOWAY Date of Study 06/24/2022 GANGA Evans Date of 1960 Gender Male Age 61 year(s) Race Room Number 0334 Height: 71 inch, 180.34 cm Corporate ID [id number] Weight: 252 pounds, 114.3 kg # Patient Acct [id number] BSA: 2.33 m^2 BMI: 35.15 kg/m^2 # MR # [id number] [employer] Jeanette Clarke Interpreting Physician Michelle Noe Fellow Referring Nurse Shelly Mondragon, Practitioner INTELLIGENCE OFFICER BASIC Interpreting Referring Physician Fellow Type of Study TTE procedure:2D Echocardiogram, M-Mode, Doppler, Color Doppler. Procedure Date Date: 06/24/2022 Start: 09:47 AM Study Location: [facility] Indications:Abnormal ECG. History / Tech. Comments: [...] MD / Result, Unknown Provider - 06/24/2022 [facility] Transthoracic Echocardiography Report (TTE) Patient Name ALLOWAY Date of Study 06/24/2022 GANGA Evans Date of 1960 Gender Male Age 61 year(s) Race Room Number 0334 Height: 71 inch, 180.34 cm Corporate ID [id number] Weight: 252 pounds, 114.3 kg # Patient Acct [id number] BSA: 2.33 m^2 BMI: 35.15 kg/m^2 # MR # [id number] [employer] Jeanette Clarke Interpreting Physician Michelle Noe Fellow Referring Nurse Shelly Mondragon, Practitioner DOLLY Interpreting Referring Physician Fellow Type of Study TTE procedure:2D Echocardiogram, M-Mode, Doppler, Color Doppler. Procedure Date Date: 06/24/2022 Start: 09:47 AM Study Location: [facility] Indications:Abnormal ECG. History / Tech. Comments: [...] Wall E' velocity:0.13 m/s Lateral Wall E/E':9.8 [facility] Work Phone: [facility] Work Phone: Glucose, Whole Bloodon 06-24 Glucose [Mass/Vol] 114 mg/dL High 74 - 100 mg/dL [facility] Interpretation and review of laboratory results Abnormal [facility] Hemoglobin and Hematocriton 06-24-2022 Hematocrit (Bld) [Volume fraction] 25.1 % Low 40.7 - 50.3 % [facility] Hemoglobin (Bld) [Mass/Vol] 7.8 g/dL Low 13.0 - 17.0 g/dL [facility] Interpretation and review of laboratory results Abnormal [facility] Hgb/Hcton 06-24-2022 Hematocrit (Bld) [Volume fraction] 25.1 % Low 40.7-50.3 [facility] Comment on above: Performed By: #### C MPX, CDP #### [facility] [address] [place] [address] [place] [address] Commercial Counsel: Khadar Tang MD Hemoglobin (Bld) [Mass/Vol] 7.8 g/dL Low 13.0-17.0 [facility] Comment on above: Performed By: #### C MPX, CDP #### [facility] [address] [place] [phone] Commercial Counsel: Khadar Tang MD Iron Binding Cap.on 06-25-19 23 % Fe Saturation 19 % Low 20-55 [facility] Comment on above: Performed By: #### C MPX, CDP #### [facility] [address] [place] [address] Commercial Counsel: Khadar Tang MD Iron [Mass/Vol] 33 ug/dL Low 59-158 [facility] Comment on above: Performed By: #### C MPX, CDP #### [facility] [address] [place], [place] [address] Commercial Counsel: Khadar Tang MD Total Fe Binding Cap 175 ug/dL Low 250-450 [facility] Comment on above: Performed By: #### C MPX, CDP #### [facility] [address] [place] [address] Commercial Counsel: Khadar Tang MD Unbound Fe Bind Cap 142 ug/dL Normal 112-347 [facility] Comment on above: Performed By: #### C MPX, CDP #### [facility] [address] [place] [address] Commercial Counsel: Khadar Tang MD Iron and TIBCon 06-24-2022 Interpretation and review of laboratory results Abnormal [facility] Iron [Mass/Vol] 33 ug/dL Low 59 - 158 ug/dL [facility] Iron binding capacity [Mass/Vol] 175 ug/dL Low 250 - 450 ug/dL [facility] [facility] Iron Saturation 19 % Low 20 - 55 % [facility] UIBC 142 ug/dL 112 - 347 ug/dL [facility] Laboratory - Microbiology an d Antimicrobial susceptibilityon 06-24-2022 Microorganism or agent identified Nom (Unsp spec) Positive Abnormal [facility] Lipid Panelon 06-24-2022 Cholesterol [Mass/Vol] 147 mg/dL NINF - 200 mg/dL [facility] Comment on above: Cholesterol Guidelines: <200 Desirable 200-240 Borderline >240 Undesirable Cholesterol in HDL [Mass/Vol] 28 mg/dL Low 40 - PINF mg/dL [facility] Comment on above: HDL Guidelines: <40 Undesirable 40-59 Borderline >59 Desirable Cholesterol in LDL [Mass/Vol] 98 mg/dL 0 - 130 mg/dL [facility] Comment on above: LDL Guidelines: <100 Desirable 100-129 Near to/above Desirable 130-159 Borderline >159 Undesirable Direct (measured) LDL and calculated LDL are not interchangeable tests. Cholesterol.total/Cho lesterol in HDL [Mass ratio] 5.3 {ratio} High NINF - 5 [facility] Interpretation and review of laboratory results Abnormal [facility] Triglyceride [Mass/Vol] 107 mg/dL NINF - 150 mg/dL [facility] Comment on above: Triglyceride Guidelines: <150 Desirable 150-199 Borderline 200-499 High >499 Very high Based on AHA Guidelines for fasting triglyceride, December 2011. [facility] Lipid Profileon 06-24-2022 Cholesterol [Mass/Vol] 147 mg/dL Normal <200 [facility] Comment on above: Result Comment: Cholesterol Guidelines: <200 Desirable 200-240 Borderline >240 Undesirable Performed By: #### T ROPI #### [facility] [address] [place] [address] Commercial Counsel: Khadar Tang MD Cholesterol in HDL [Mass/Vol] 28 mg/dL Low >40 [facility] Comment on above: Result Comment: HDL Guidelines: <40 Undesirable 40-59 Borderline >59 Desirable Performed By: #### T ROPI #### [facility] [address] [place] [address] Commercial Counsel: Khadar Tang MD Cholesterol in LDL [Mass/Vol] 98 mg/dL Normal 0-130 [facility] Comment on above: Result Comment: LDL Guidelines: <100 Desirable 100-129 Near to/above Desirable 130-159 Borderline >159 Undesirable Direct (measured) LDL and calculated LDL are not interchangeable tests. Performed By: #### T ROPI #### [facility] [address] [place] [address] Commercial Counsel: Khadar Tang MD Cholesterol.total/Cho lesterol in HDL [Mass ratio] 5.3 {ratio} High <5 [facility] Comment on above: Performed By: #### T ROPI #### [facility] [address] [place], [place] [address] Commercial Counsel: Khadar Tang MD Triglyceride [Mass/Vol] 107 mg/dL Normal <150 [facility] Comment on above: Result Comment: Triglyceride Guidelines: <150 Desirable 150-199 Borderline 200-499 High >499 Very high Based on AHA Guidelines for fasting triglyceride, December 2011. Performed By: #### T CINDYI #### [facility] [address] [place] [address] Commercial Counsel: Khadar Tang MD PTon 06-24-2022 INR Coag (PPP) [Relative time] 1.1 {INR} Normal [facility] Comment on above: Result Comment: Therapeutic Range: Moderate Anticoagulant Intensity: INR = 2.0-3.0 High Anticoagulant Intensity: INR = 2.5-3.5 Performed By: #### C MPX, CDP #### [facility] [address] [place], [place] [phone] Commercial Counsel: Khadar Tang MD PT Coag (PPP) [Time] 14.8 s Normal 11.9-14.8 [facility] Comment on above: Performed By: #### C MPX, CDP #### [facility] [address] [place], [place] [phone] Commercial Counsel: Khadar Tang MD PTTon 06-24-2022 aPTT Coag (Bld) [Time] 35.6 s High [facility] Comment on above: IV Heparin Therapy Range: 62.0-94.0 Interpretation and review of laboratory results Abnormal [facility] Protime-INRon 06-24-2022 INR Coag (PPP) [Relative time] 1.1 {INR} [facility] Comment on above: Therapeutic Range: Moderate Anticoagulant Intensity: INR = 2.0-3.0 High Anticoagulant Intensity: INR = 2.5-3.5 PT Coag (PPP) [Time] 14.8 s [facility] Troponinon 06-24-2022 Troponin, High Sens 57 ng/L Critically high 0-22 [facility] Comment on above: Result Comment: High Sensitivity Troponin values cannot be compared with other Troponin methodologies. Performed By: #### C MPX, CDP #### [facility] [address] [place] [id number] Commercial Counsel: Khadar Tang MD Interpretation and review of laboratory results Abnormal [facility] Troponin I.cardiac DL <= 0.01 ng/mL [Mass/Vol] 57 ng/L Critically high 0 - 22 ng/L [facility] Comment on above: High Sensitivity Tro ponin values cannot be compared with other Troponin methodologies. [facility] Troponin, High Sens 58 ng/L Critically high 0-22 [facility] Comment on above: Result Comment: High Sensitivity Troponin values cannot be compared with other Troponin methodologies. Performed By: #### T ROPI #### [facility] [address] [place] [phone] Commercial Counsel: Khadar Tang MD Interpretation and review of laboratory results Abnormal [facility] Troponin I.cardiac DL <= 0.01 ng/mL [Mass/Vol] 58 ng/L Critically high 0 - 22 ng/L [facility] Comment on above: High Sensitivity Tro ponin values cannot be compared with other Troponin methodologies. [facility] Troponin, High Sens 59 ng/L Critically high 0-22 [facility] Comment on above: Result Comment: High Sensitivity Troponin values cannot be compared with other Troponin methodologies. Performed By: #### C MPX, CDP #### [facility] [address] [place] [id number] Commercial Counsel: Khadar Tang MD Interpretation and review of laboratory results Abnormal [facility] Troponin I.cardiac DL <= 0.01 ng/mL [Mass/Vol] 59 ng/L Critically high 0 - 22 ng/L [facility] Comment on above: High Sensitivity Tro ponin values cannot be compared with other Troponin methodologies. [facility] Type + Screenon 06-24-2022 Type + Screen Sample Expiration 06/27/2022,2359 Arm Band Number [id number] ABO/Rh(D) A NEGATIVE Antibody Screen NEGATIVE Unit Number [id number] Blood Component Type Leukocyte Reduced Red Cell Unit Division 00 Status of Unit TRANSFUSED Transfusion Status OK TO TRANSFUSE Crossmatch Result COMPATIBLE Normal [facility] Comment on above: Performed By: #### C MPX, CDP #### [facility] [address] [place] [address] Commercial Counsel: Khadar Tang MD Vitamin B12 & Folateon 06-24 Cobalamin (Vitamin B12) [Mass/Vol] 446 pg/mL 232 - 1245 pg/mL [facility] Folate [Mass/Vol] 8.2 ng/mL 4.8 - PINF ng/mL [facility] CBC auto differentialon 05-28 Absolute Eos # 0.65 High [facility] Absolute Immature Granulocyte 0.06 [facility] Absolute Lymph # 1.94 [facility] Absolute [place] # 0.72 [facility] Basophils (Bld) [#/Vol] 0.04 10*3/uL [facility] Basophils/100 WBC (Bld) 0 % 0 - 2 % [facility] Eosinophils/100 WBC (Bld) 7 % High 1 - 4 % [facility] Hematocrit (Bld) [Volume fraction] 25.0 % Low 40.7 - 50.3 % [facility] Hemoglobin (Bld) [Mass/Vol] 7.5 g/dL Low 13.0 - 17.0 g/dL [facility] Immature granulocytes/100 WBC (Bld) 1 % High 0 [facility] Interpretation and review of laboratory results Abnormal [facility] Lymphocytes/100 WBC (Bld) 22 % Low 24 - 43 % [facility] MCH (RBC) [Entitic mass] 23.3 pg Low 25.2 - 33.5 pg [facility] MCHC (RBC) [Mass/Vol] 30.0 g/dL 28.4 - 34.8 g/dL [facility] MCV (RBC) [Entitic vol] 77.6 fL Low 82.6 - 102.9 fL [facility] Monocytes/100 WBC (Bld) 8 % 3 - 12 % [facility] NRBC Automated 0.0 0.0 per 100 WBC [facility] Platelet distribution width (Bld) [Ratio] 16.4 % High 11.8 - 14.4 % [facility] Platelet mean volume (Bld) [Entitic vol] 8.7 fL 8.1 - 13.5 fL [facility] Platelets (Bld) [#/Vol] 263 10*3/uL [facility] RBC (Bld) [#/Vol] 3.22 10*6/uL Low 4.21 - 5.77 m/uL [facility] Segmented neutrophils/100 WBC (Bld) 62 % 36 - 65 % [facility] Segs Absolute 5.55 [facility] WBC (Bld) [#/Vol] 9.0 10*3/uL [facility] CBC with Diffon 06-23-2022 Abs. Basophil 0.04 k/uL Normal 0.00-0.20 [facility] Comment on above: Performed By: #### C MPX, CDP #### [facility] [address] [place] [address] [place] [address] Commercial Counsel: Khadar Tang MD Abs.Imm.Granulocyte 0.06 k/uL Normal 0.00-0.30 [facility] Comment on above: Performed By: #### C MPX, CDP #### [address] [place], [place] [phone] Commercial Counsel: Khadar Tang MD Abs.Neutrophil (Seg) 5.55 k/uL Normal 1.50-8.10 [facility] Comment on above: Performed By: #### C MPX, CDP #### [facility] [address] [place] [address] [place] [place], [place] [phone] Commercial Counsel: Khadar Tang MD Basophils/100 WBC (Bld) 0 % Normal 0-2 [facility] Comment on above: Performed By: #### C MPX, CDP #### [facility] [address] [place] [address] [place] [address] Commercial Counsel: Khadar Tang MD Eosinophils (Bld) [#/Vol] 0.65 10*3/uL High 0.00-0.44 [facility] Comment on above: Performed By: #### C MPX, CDP #### [address] [place] [address] Commercial Counsel: Khadar Tang MD Eosinophils/100 WBC (Bld) 7 % High 1-4 [facility] Comment on above: Performed By: #### C MPX, CDP #### [address] [place], [place] [phone] Commercial Counsel: Khadar Tang MD Erythrocyte distribution width (RBC) [Ratio] 16.4 % High 11.8-14.4 [facility] Comment on above: Performed By: #### C MPX, CDP #### [address] [place] [address] Commercial Counsel: Khadar Tang MD Hematocrit (Bld) [Volume fraction] 25.0 % Low 40.7-50.3 [facility] Comment on above: Performed By: #### C MPX, CDP #### [address] [place], [place] [phone] Commercial Counsel: Khadar Tang MD Hemoglobin (Bld) [Mass/Vol] 7.5 g/dL Low 13.0-17.0 [facility] Comment on above: Performed By: #### C MPX, CDP #### [facility] [address] [place] [address] [address]. [place], [place] [phone] Commercial Counsel: Khadar Tang MD Immature granulocytes/100 WBC (Bld) 1 % High 0 [facility] Comment on above: Performed By: #### C MPX, CDP #### [address] [place] [address] Commercial Counsel: Khadar Tang MD Lymphocytes (Bld) [#/Vol] 1.94 10*3/uL Normal 1.10-3.70 [facility] Comment on above: Performed By: #### C MPX, CDP #### [facility] [address] [place], [place] [phone] Commercial Counsel: Khadar Tang MD Lymphocytes/100 WBC (Bld) 22 % Low 24-43 [facility] Comment on above: Performed By: #### C MPX, CDP #### [facility] [address] [place], [facility] Commercial Counsel: Khadar Tang MD MCH (RBC) [Entitic mass] 23.3 pg Low 25.2-33.5 [facility] Comment on above: Performed By: #### C MPX, CDP #### [facility] [address] [place], [facility] Commercial Counsel: Khadar Tang MD MCHC (RBC) [Mass/Vol] 30.0 g/dL Normal 28.4-34.8 [facility] Comment on above: Performed By: #### C MPX, CDP #### [address] [place], [place] [phone] Commercial Counsel: Khadar Tang MD MCV (RBC) [Entitic vol] 77.6 fL Low 82.6-102.9 [facility] Comment on above: Performed By: #### C MPX, CDP #### [facility] [address] [place] [address] Dr. [place], [facility] Commercial Counsel: Khadar Tang MD Monocytes (Bld) [#/Vol] 0.72 10*3/uL Normal 0.10-1.20 [facility] Comment on above: Performed By: #### C MPX, CDP #### [facility] [address] [place] [address] Commercial Counsel: Khadar Tang MD Monocytes/100 WBC (Bld) 8 % Normal 3-12 [facility] Comment on above: Performed By: #### C MPX, CDP #### [facility] [address] [place], [place] [phone] Commercial Counsel: Khadar Tang MD Neutrophil (Seg) 62 % Normal 36-65 [facility] Comment on above: Performed By: #### C MPX, CDP #### [facility] [address] [place], [place] [phone] Commercial Counsel: Khadar Tang MD NRBC Automated 0.0 per 100 WBC Normal 0.0 [facility] Comment on above: Performed By: #### C MPX, CDP #### [facility] [address] [place], [place] [phone] Commercial Counsel: Khadar Tang MD Platelet mean volume (Bld) [Entitic vol] 8.7 fL Normal 8.1-13.5 [facility] Comment on above: Performed By: #### C MPX, CDP #### [facility] [address] [place], [place] [phone] Commercial Counsel: Khadar Tang MD Platelets (Bld) [#/Vol] 263 10*3/uL Normal 138-453 [facility] Comment on above: Performed By: #### C MPX, CDP #### [address] [place], [place] [phone] Commercial Counsel: Khadar Tang MD RBC (Bld) [#/Vol] 3.22 10*6/uL Low 4.21-5.77 [facility] Comment on above: Performed By: #### C MPX, CDP #### [address] [place], [place] [phone] Commercial Counsel: Khadar Tang MD WBC (Bld) [#/Vol] 9.0 10*3/uL Normal 3.5-11.3 [facility] Comment on above: Performed By: #### C MPX, CDP #### [facility] [address] [place], [place] [id number] Commercial Counsel: Khadar Tang MD Comp Metabolic Pr/rfx MGon 0 06-23-2022 Albumin [Mass/Vol] 2.9 g/dL Low 3.5-5.2 [facility] Comment on above: Performed By: #### C MPX, CDP #### [facility] [address] [place], [place] [phone] Commercial Counsel: Khadar Tang MD Albumin/Glob Ratio 0.7 Low 1.0-2.5 [facility] Comment on above: Performed By: #### C MPX, CDP #### [facility] [address] [place], [place] [phone] Commercial Counsel: Khadar Tang MD Alkaline Phos 89 U/L Normal 40-129 [facility] Comment on above: Performed By: #### C MPX, CDP #### [facility] [address] [place] [address] Dr. [place], [place] [phone] Commercial Counsel: Khadar Tang MD ALT [Catalytic activity/Vol] 11 U/L Normal 5-41 [facility] Comment on above: Performed By: #### C MPX, CDP #### [facility] [address] [place] [address] Dr. [place], [place] [phone] Commercial Counsel: Khadar Tang MD Anion gap [Moles/Vol] 8 mmol/L Low 9-17 [facility] Comment on above: Performed By: #### C MPX, CDP #### [facility] [address] [place], [place] [phone] Commercial Counsel: Khadar Tang MD AST [Catalytic activity/Vol] 12 U/L Normal <40 [facility] Comment on above: Performed By: #### C MPX, CDP #### [facility] [address] [place], [place] [phone] Commercial Counsel: Khadar Tang MD Bilirubin [Mass/Vol] 0.2 mg/dL Low 0.3-1.2 [facility] Comment on above: Performed By: #### C MPX, CDP #### [facility] [address] [place], [place] [phone] Commercial Counsel: Khadar Tang MD BUN/CRE Ratio 25 High 9-20 [facility] Comment on above: Performed By: #### C MPX, CDP #### [facility] [address] [place], [place] [phone] Commercial Counsel: Khadar Tang MD Calcium [Mass/Vol] 9.0 mg/dL Normal 8.6-10.4 [facility] Comment on above: Performed By: #### C MPX, CDP #### [facility] [address] [place], [place] [phone] Commercial Counsel: Khadar Tang MD Chloride [Moles/Vol] 115 mmol/L High 98-107 [facility] Comment on above: Performed By: #### C MPX, CDP #### [facility] [address] [place], [place] [phone] Commercial Counsel: Khadar Tang MD CO2 [Moles/Vol] 17 mmol/L Low 20-31 [facility] Comment on above: Performed By: #### C MPX, CDP #### [facility] [address] [place], [place] [phone] Commercial Counsel: Khadar Tang MD Creatinine [Mass/Vol] 1.55 mg/dL High 0.70-1.20 [facility] Comment on above: Performed By: #### C MPX, CDP #### [facility] [address] [place], [place] [address] Commercial Counsel: Khadar Tang MD GFR/1.73 sq M.predicted among non-blacks MDRD (S/P/Bld) [Vol rate/Area] 51 mL/min/{1.73_m2} Low >60 [facility] Comment on above: Result Comment: These [...] By: #### C MPX, CDP #### [facility] [address] [place] [address] [place], [place] [address] Commercial Counsel: Khadar Tang MD Glucose [Mass/Vol] 119 mg/dL High 70-99 [facility] Comment on above: Performed By: #### C MPX, CDP #### [address] [place], [place] [id number] Commercial Counsel: Khadar Tang MD Potassium [Moles/Vol] 5.4 mmol/L High 3.7-5.3 [facility] Comment on above: Performed By: #### C MPX, CDP #### [address] [place], [place] [phone] Commercial Counsel: Khadar Tang MD Protein [Mass/Vol] 7.1 g/dL Normal 6.4-8.3 [facility] Comment on above: Performed By: #### C MPX, CDP #### [address] [place], [place] [phone] Commercial Counsel: Khadar Tang MD Sodium [Moles/Vol] 140 mmol/L Normal 135-144 [facility] Comment on above: Performed By: #### C MPX, CDP #### [facility] [address] [place] [address] [place] [address] Commercial Counsel: Khadar Tang MD Urea nitrogen [Mass/Vol] 38 mg/dL High 8-23 [facility] Comment on above: Performed By: #### C MPX, CDP #### [address] [place] [address] Commercial Counsel: Khadar Tang MD Comprehensive Metabolic Pane l w/ Reflex to MGon 06-23-2022 Albumin [Mass/Vol] 2.9 g/dL Low 3.5 - 5.2 g/dL [facility] Albumin/Globulin [Mass ratio] 0.7 {ratio} Low 1.0 - 2.5 [facility] ALP [Catalytic activity/Vol] 89 U/L 40 - 129 U/L [facility] ALT [Catalytic activity/Vol] 11 U/L 5 - 41 U/L [facility] Anion gap [Moles/Vol] 8 mmol/L Low 9 - 17 mmol/L [facility] AST [Catalytic activity/Vol] 12 U/L NINF - 40 U/L [facility] Bilirubin [Mass/Vol] 0.2 mg/dL Low 0.3 - 1 .2 mg/dL [facility] Calcium [Mass/Vol] 9.0 mg/dL 8.6 - 10. 4 mg/dL [facility] Chloride [Moles/Vol] 115 mmol/L High 98 - 10 7 mmol/L [facility] CO2 [Moles/Vol] 17 mmol/L Low 20 - 31 mmol/L [facility] Creatinine [Mass/Vol] 1.55 mg/dL High 0.70 - 1.20 mg/dL [facility] GFR/1.73 sq M.predicted MDRD (S/P/Bld) [Vol rate/Area] 51 mL/min/{1.73_m2} Low - PINF [facility] Comment on above: These results are [...] 119 mg/dL High 70 - 99 mg/[facility] Interpretation and review of laboratory results Abnormal [facility] Potassium [Moles/Vol] 5.4 mmol/L High 3.7 - 5.3 mmol/L [employer] Protein [Mass/Vol] 7.1 g/dL 6.4 - 8.3 g/dL [employer] Sodium [Moles/Vol] 140 mmol/L 135 - 144 mmol/L [employer] Urea nitrogen [Mass/Vol] 38 mg/dL High 8 - 23 mg/dL [employer] Urea nitrogen/Creatinine (Bld) [Mass ratio] 25 High 9 - 20 [employer] EKG 12 LeadOrdered By: Michelle Tellez hmad on 06-23-2022 Atrial Rate 60 BPM [employer] Work Phone: P [place] 55 degrees [employer] Work Phone: P-R Interval 182 ms [employer] Work Phone: Q-T Interval 388 ms [employer] Work Phone: QRS Duration 88 ms [employer] Work Phone: QTc Calculation (Bazett) 388 ms [employer] Work Phone: R [place] 15 degrees [employer] Work Phone: T [place] 40 degrees [employer] Work Phone: Ventricular Rate 60 BPM [employer] Work Phone: [employer] Work Phone: EKG 12 Leadon 06-23-2022 Poor [...] MD ([id number]) on 06/23/2022 3:18:16 PM [facility] RADIOLOGY Michelle Noe MD - 06/23/2022 Poor data quality, interpretation may be adversely affected Normal sinus rhythm Normal ECG When compared with ECG of 22-JUN-2022 13:14, (unconfirmed) Borderline criteria for Anterolateral infarct are no longer Present Criteria for Inferior infarct are no longer Present T wave inversion no longer evident in Inferior leads Confirmed by Michelle Noe MD ([id number]) on 06/23/2022 3:18:16 PM [facility] Work Phone: EKG Rhythm Stripon 3 [facility] Glucose, Whole Bloodon 06-23 Glucose [Mass/Vol] 230 mg/dL High 74 - 100 mg/dL [facility] Interpretation and review of laboratory results Abnormal [facility] Urinalysison 06-23-2022 Bilirubin Urine Negative NEGATIVE [facility] Color, UA Yellow Yellow [facility] Glucose Auto test strip (U) [Mass/Vol] Negative NEGATIVE [facility] Ketones (U) [Mass/Vol] Negative NEGATIVE [facility] Leukocyte esterase Auto test strip Ql (U) Negative NEGATIVE [facility] Nitrite Auto test strip Ql (U) Negative NEGATIVE [facility] Protein (U) [Mass/Vol] 6.0 mg/dL 5.0 - 9.0 [facility] Protein (U) [Mass/Vol] Negative NEGATIVE [facility] Specific [place], UA 1.020 1.010 - 1.020 [facility] Turbidity UA Clear Clear [facility] Urine Hgb Negative NEGATIVE [facility] Urobilinogen, Urine Normal Normal [facility] Urinalysis, Routineon 2022 Bilirubin, SemiQt,Ur Negative Normal NEG [facility] Comment on above: Performed By: #### U A #### [facility] [address] [place], [place] [address] Commercial Counsel: Khadar Tang MD Blood, Urine Negative Normal NEG [facility] Comment on above: Performed By: #### U A #### [facility] [address] [place] [address] [address]. [place], [place] [phone] Commercial Counsel: Khadar Tang MD Clarity (U) Clear Normal CLEAR [facility] Comment on above: Performed By: #### U A #### [facility] [address] [place] [address] Dr. [place], [place] [phone] Commercial Counsel: Khadar Tang MD Color (U) Yellow Normal YEL [facility] Comment on above: Performed By: #### U A #### [facility] [address] [place] [address] Dr. [place], [place] [phone] Commercial Counsel: Khadar Tang MD Glucose Ql (U) Negative Normal NEG [facility] Comment on above: Performed By: #### U A #### [facility] [address] [place] [address] Dr. [place], [place] [phone] Commercial Counsel: Khadar Tang MD Ketones Ql (U) Negative Normal NEG [facility] in Hospital Comment on above: Performed By: #### U A #### [facility] [address] [place] [address] Dr. [place], [place] [phone] Commercial Counsel: Khadar Tang MD Leukocyte esterase Test strip Ql (U) Negative Normal NEG [facility] Comment on above: Performed By: #### U A #### [facility] [address] [place] [address] [address]. [place], [place] [phone] Commercial Counsel: Khadar Tang MD Nitrite,Ur Negative Normal NEG [facility] Comment on above: Performed By: #### U A #### [facility] [address] [place] [address] Dr. [place], [place] [phone] Commercial Counsel: Khadar Tang MD PH,Ur 6.0 Normal 5.0-9.0 [facility] Comment on above: Performed By: #### U A #### [facility] [address] [place] [address] Dr. [place], [place] [phone] Commercial Counsel: Khadar Tang MD Protein Ql (U) Negative Normal NEG [facility] Comment on above: Performed By: #### U A #### [facility] [address] [place] [address] Commercial Counsel: Khadar Tang MD Spec. [place],Ur 1.020 Normal 1.010-1.02 0 [facility] Comment on above: Performed By: #### U A #### [facility] [address] [place] [address] Commercial Counsel: Khadar Tang MD Urobilinogen,Ur Normal Normal NORM [facility] Comment on above: Performed By: #### U A #### [facility] [address] [place] [address] Commercial Counsel: Khadar Tang MD XR ANKLE RIGHT (MIN [...] Derrick Squires MD 06/23/22 Final result Normal [facility] 1. Nonspecific diffu se subcutaneous edema. [...] lesion is noted. Calcaneal spurring appears unchanged. [facility] Derrick Herrera MD - 06/23/2022 [...] no subcutaneous air or evidence of osteomyelitis. [employer]: Radiology Study observation (narrative) [employer]: XR ANKLE RIGHT (MIN 3 VIEWS) Ordered By: Derrick Squires on 06-23-2022 [employer]: Basic Metabolic Panelon 05-28 Anion gap [Moles/Vol] 9 mmol/L 9 - 17 mmol/L [facility] Calcium [Mass/Vol] 9.5 mg/dL 8.6 - 10. 4 mg/dL [facility] Chloride [Moles/Vol] 112 mmol/L High 98 - 10 7 mmol/L [facility] CO2 [Moles/Vol] 17 mmol/L Low 20 - 31 mmol/L [facility] Creatinine [Mass/Vol] 2 mg/dL High 0.70 - 1.20 mg/dL [facility] GFR/1.73 sq M.predicted MDRD (S/P/Bld) [Vol rate/Area] 38 mL/min/{1.73_m2} Low - PINF [facility] Comment on above: These results are [...] High 70 - 99 mg/dL [facility] Interpretation and review of laboratory results Abnormal [facility] Potassium [Moles/Vol] 6.1 mmol/L Critically high 3.7 - 5.3 mmol/L [facility] Sodium [Moles/Vol] 138 mmol/L 135 - 144 mmol/L [facility] Urea nitrogen [Mass/Vol] 45 mg/dL High 8 - 23 mg/dL [facility] Urea nitrogen/Creatinine (Bld) [Mass ratio] 23 High 9 - 20 [facility] Basic Metabolic Profon 06-22 Potassium [Moles/Vol] 6.1 mmol/L Critically high 3.7-5.3 [facility] Comment on above: Performed By: #### T CINDYI #### [facility] [address] [place] [address] Commercial Counsel: Khadar Tang MD Anion gap [Moles/Vol] 9 mmol/L Normal 9-17 [facility] Comment on above: Performed By: #### T CINDYI #### [facility] [address] [place] [address] Commercial Counsel: Khadar Tang MD BUN/CRE Ratio 23 High 9-20 [facility] Comment on above: Performed By: #### T CINDYI #### [facility] [address] [place] [address] Commercial Counsel: Khadar Tang MD Calcium [Mass/Vol] 9.5 mg/dL Normal 8.6-10.4 [facility] Comment on above: Performed By: #### T ROPI #### [facility] [address] [place], [place] [phone] Commercial Counsel: Khadar Tang MD Chloride [Moles/Vol] 112 mmol/L High 98-107 [facility] Comment on above: Performed By: #### T ROPI #### [facility] [address] [place], [place] [phone] Commercial Counsel: Khadar Tang MD CO2 [Moles/Vol] 17 mmol/L Low 20-31 [facility] Comment on above: Performed By: #### T ROPI #### [facility] [address] [place], [place] [phone] Commercial Counsel: Khadar Tang MD Creatinine [Mass/Vol] 2.00 mg/dL High 0.70-1.20 [facility] Comment on above: Performed By: #### T ROPI #### [address] [place] [address] Commercial Counsel: Khadar Tang MD GFR/1.73 sq M.predicted among non-blacks MDRD (S/P/Bld) [Vol rate/Area] 38 mL/min/{1.73_m2} Low >60 [facility] Comment on above: Result Comment: These [...] secretion. Performed By: #### T ROPI #### [facility] [address] [place], [place] [phone] Commercial Counsel: Khadar Tang MD Glucose [Mass/Vol] 137 mg/dL High 70-99 [facility] Comment on above: Performed By: #### T ROPI #### [facility] [address] [place], [place] [phone] Commercial Counsel: Khadar Tang MD Sodium [Moles/Vol] 138 mmol/L Normal 135-144 [facility] Comment on above: Performed By: #### T ROPI #### [facility] [address] [place], [place] [phone] Commercial Counsel: Khadar Tang MD Urea nitrogen [Mass/Vol] 45 mg/dL High 8-23 [facility] Comment on above: Performed By: #### T ROPI #### [facility] [address] [place], [place] [phone] Commercial Counsel: Khadar Tang MD CBC with Auto Differentialon 06-22-2022 Absolute Eos # 0.86 High [facility] Absolute Immature Granulocyte 0.09 [facility] Absolute Lymph # 1.97 [facility] Absolute [place] # 0.88 [facility] Basophils (Bld) [#/Vol] 0.05 10*3/uL [facility] Basophils/100 WBC (Bld) 0 % 0 - 2 % [facility] Eosinophils/100 WBC (Bld) 7 % High 1 - 4 % [facility] Hematocrit (Bld) [Volume fraction] 27.6 % Low 40.7 - 50.3 % [facility] Hemoglobin (Bld) [Mass/Vol] 8.3 g/dL Low 13.0 - 17.0 g/dL [facility] Immature granulocytes/100 WBC (Bld) 1 % High 0 [facility] Interpretation and review of laboratory results Abnormal [facility] Lymphocytes/100 WBC (Bld) 15 % Low 24 - 43 % [facility] MCH (RBC) [Entitic mass] 23.3 pg Low 25.2 - 33.5 pg [facility] MCHC (RBC) [Mass/Vol] 30.1 g/dL 28.4 - 34.8 g/dL [facility] MCV (RBC) [Entitic vol] 77.5 fL Low 82.6 - 102.9 fL [facility] Monocytes/100 WBC (Bld) 7 % 3 - 12 % [facility] NRBC Automated 0.0 0.0 per 100 WBC [facility] Platelet distribution width (Bld) [Ratio] 16.2 % High 11.8 - 14.4 % [facility] Platelet mean volume (Bld) [Entitic vol] 8.6 fL 8.1 - 13.5 fL [facility] Platelets (Bld) [#/Vol] 338 10*3/uL [facility] RBC (Bld) [#/Vol] 3.56 10*6/uL Low 4.21 - 5.77 m/uL [facility] Segmented neutrophils/100 WBC (Bld) 70 % High 36 - 65 % [facility] Segs Absolute 8.91 High [facility] WBC (Bld) [#/Vol] 12.8 10*3/uL High [facility] Absolute Eos # 0.84 High [facility] Absolute Immature Granulocyte 0.06 [facility] Absolute Lymph # 1.69 [facility] Absolute [place] # 0.82 [facility] Basophils (Bld) [#/Vol] 0.04 10*3/uL [facility] Basophils/100 WBC (Bld) 0 % 0 - 2 % [facility] Eosinophils/100 WBC (Bld) 7 % High 1 - 4 % [facility] Hematocrit (Bld) [Volume fraction] 27.1 % Low 40.7 - 50.3 % [facility] Hemoglobin (Bld) [Mass/Vol] 8.7 g/dL Low 13.0 - 17.0 g/dL [facility] Immature granulocytes/100 WBC (Bld) 1 % High 0 [facility] Interpretation and review of laboratory results Abnormal [facility] Lymphocytes/100 WBC (Bld) 14 % Low 24 - 43 % [facility] MCH (RBC) [Entitic mass] 25.3 pg 25.2 - 33.5 pg [facility] MCHC (RBC) [Mass/Vol] 32.1 g/dL 28.4 - 34.8 g/dL [facility] MCV (RBC) [Entitic vol] 78.8 fL Low 82.6 - 102.9 fL [facility] Monocytes/100 WBC (Bld) 7 % 3 - 12 % [facility] NRBC Automated 0.0 0.0 per 100 WBC [facility] Platelet distribution width (Bld) [Ratio] 16.4 % High 11.8 - 14.4 % [facility] Platelet mean volume (Bld) [Entitic vol] 9.4 fL 8.1 - 13.5 fL [facility] Platelets (Bld) [#/Vol] 345 10*3/uL [facility] RBC (Bld) [#/Vol] 3.44 10*6/uL Low 4.21 - 5.77 m/uL [facility] Segmented neutrophils/100 WBC (Bld) 71 % High 36 - 65 % [facility] Segs Absolute 9.06 High [facility] WBC (Bld) [#/Vol] 12.5 10*3/uL High [facility] CBC with Diffon 06-22-2022 Abs. Basophil 0.05 k/uL Normal 0.00-0.20 [facility] Comment on above: Performed By: #### C DP, MG, CP #### [facility] [address] [place] [address] Commercial Counsel: Khadar Tang MD Abs.Imm.Granulocyte 0.09 k/uL Normal 0.00-0.30 [facility] Comment on above: Performed By: #### C DP, MG, CP #### [facility] [address] [place] [address] Commercial Counsel: Khadar Tang MD Abs.Neutrophil (Seg) 8.91 k/uL High 1.50-8.10 [facility] Comment on above: Performed By: #### C DP MG, CP #### [address] [place] [address] Commercial Counsel: Khadar Tang MD Basophils/100 WBC (Bld) 0 % Normal 0-2 [facility] Comment on above: Performed By: #### C DP, MG, CP #### [address] [place] [address] Commercial Counsel: Khadar Tang MD Eosinophils (Bld) [#/Vol] 0.86 10*3/uL High 0.00-0.44 [facility] Comment on above: Performed By: #### C DP MG, CP #### [address] [place], [place] [address] Commercial Counsel: Khadar Tang MD Eosinophils/100 WBC (Bld) 7 % High 1-4 [facility] Comment on above: Performed By: #### C DP MG, CP #### [address] [place], [place] [address] Commercial Counsel: Khadar Tang MD Erythrocyte distribution width (RBC) [Ratio] 16.2 % High 11.8-14.4 [facility] Comment on above: Performed By: #### C DP, MG, CP #### [address] [place], [place] [address] Commercial Counsel: Khadar Tang MD Hematocrit (Bld) [Volume fraction] 27.6 % Low 40.7-50.3 [facility] Comment on above: Performed By: #### C DP, MG, CP #### [address] [place], [facility]83 Commercial Counsel: Khadar Tang MD Hemoglobin (Bld) [Mass/Vol] 8.3 g/dL Low 13.0-17.0 [facility] Comment on above: Performed By: #### C DP, MG, CP #### [address] [place], [facility]83 Commercial Counsel: Khadar Tang MD Immature granulocytes/100 WBC (Bld) 1 % High 0 [facility] Comment on above: Performed By: #### C DP, MG, CP #### [address] [place], [place] [address] Commercial Counsel: Khadar Tang MD Lymphocytes (Bld) [#/Vol] 1.97 10*3/uL Normal 1.10-3.70 [facility] Comment on above: Performed By: #### C DP, MG, CP #### [address] [place] [phone] Commercial Counsel: Khadar Tang MD Lymphocytes/100 WBC (Bld) 15 % Low 24-43 [facility] Comment on above: Performed By: #### C DP, MG, CP #### [address] [place] [address] Commercial Counsel: Khadar Tang MD MCH (RBC) [Entitic mass] 23.3 pg Low 25.2-33.5 [facility] Comment on above: Performed By: #### C DP, MG, CP #### [address] [place], [facility]83 Commercial Counsel: Khadar Tang MD MCHC (RBC) [Mass/Vol] 30.1 g/dL Normal 28.4-34.8 [facility] Comment on above: Performed By: #### C DP, MG, CP #### [address] [place] [address] Commercial Counsel: Khadar Tang MD MCV (RBC) [Entitic vol] 77.5 fL Low 82.6-102.9 [facility] Comment on above: Performed By: #### C DP, MG, CP #### [facility] [address] [place], [facility]83 Commercial Counsel: Khadar Tang MD Monocytes (Bld) [#/Vol] 0.88 10*3/uL Normal 0.10-1.20 [facility] Comment on above: Performed By: #### C DP, MG, CP #### [facility] [address] [place] [address] Dr. [place], [place] [address] Commercial Counsel: Khadar Tang MD Monocytes/100 WBC (Bld) 7 % Normal 3-12 [facility] Comment on above: Performed By: #### C DP, MG, CP #### [address] [place], [place] [address] Commercial Counsel: Khadar Tang MD Neutrophil (Seg) 70 % High 36-65 [facility] Comment on above: Performed By: #### C DP, MG, CP #### [address] [place], [place] [address] Commercial Counsel: Khadar Tang MD NRBC Automated 0.0 per 100 WBC Normal 0.0 [facility] Comment on above: Performed By: #### C DP, MG, CP #### [address] [place], [place] [address] Commercial Counsel: hKadar Tang MD Platelet mean volume (Bld) [Entitic vol] 8.6 fL Normal 8.1-13.5 [facility] Comment on above: Performed By: #### C DP, MG, CP #### [address] [place], [facility]83 Commercial Counsel: Khadar Tang MD Platelets (Bld) [#/Vol] 338 10*3/uL Normal 138-453 [facility] Comment on above: Performed By: #### C DP, MG, CP #### [facility] [address] [place] [address] Commercial Counsel: Khadar Tang MD RBC (Bld) [#/Vol] 3.56 10*6/uL Low 4.21-5.77 [facility] Comment on above: Performed By: #### C ZANDER MG, CP #### [facility] [address] [place], [facility]83 Commercial Counsel: Khadar Tang MD WBC (Bld) [#/Vol] 12.8 10*3/uL High 3.5-11.3 [facility] Comment on above: Performed By: #### C MG ZANDER, CP #### [address] [place], [facility]83 Commercial Counsel: Khadar Tang MD Abs. Basophil 0.04 k/uL Normal 0.00-0.20 [facility] Comment on above: Performed By: #### T ROPI #### [address] [place], [place] [address] Commercial Counsel: Khadar Tang MD Abs.Imm.Granulocyte 0.06 k/uL Normal 0.00-0.30 [facility] Comment on above: Performed By: #### T ROPI #### [address] [place], [facility]83 Commercial Counsel: Khadar Tang MD Abs.Neutrophil (Seg) 9.06 k/uL High 1.50-8.10 [facility] Comment on above: Performed By: #### T ROPI #### [address] [place], [facility]83 Commercial Counsel: Khadar Tang MD Basophils/100 WBC (Bld) 0 % Normal 0-2 [facility] Comment on above: Performed By: #### T ROPI #### [facility] [address] [place] [address] Dr. [place], [place] [address] Commercial Counsel: Khadar Tang MD Eosinophils (Bld) [#/Vol] 0.84 10*3/uL High 0.00-0.44 [facility] Comment on above: Performed By: #### T ROPI #### [address] [place], [place] [phone] Commercial Counsel: Khadar Tang MD Eosinophils/100 WBC (Bld) 7 % High 1-4 [facility] Comment on above: Performed By: #### T ROPI #### [address] [place] [address] Commercial Counsel: Khadar Tang MD Erythrocyte distribution width (RBC) [Ratio] 16.4 % High 11.8-14.4 [facility] Comment on above: Performed By: #### T ROPI #### [address] [place], [facility]83 Commercial Counsel: Khadar Tang MD Hematocrit (Bld) [Volume fraction] 27.1 % Low 40.7-50.3 [facility] Comment on above: Performed By: #### T ROPI #### [address] [place], [place] [phone] Commercial Counsel: Khadar Tang MD Hemoglobin (Bld) [Mass/Vol] 8.7 g/dL Low 13.0-17.0 [facility] Comment on above: Performed By: #### T ROPI #### [address] [place], [place] [phone] Commercial Counsel: Khadar Tang MD Immature granulocytes/100 WBC (Bld) 1 % High 0 [facility] Comment on above: Performed By: #### T ROPI #### [address] [place] [address] Commercial Counsel: Khadar Tang MD Lymphocytes (Bld) [#/Vol] 1.69 10*3/uL Normal 1.10-3.70 [facility] Comment on above: Performed By: #### T ROPI #### [facility] [address] [place], [place] [address] Commercial Counsel: Khadar Tang MD Lymphocytes/100 WBC (Bld) 14 % Low 24-43 [facility] Comment on above: Performed By: #### T ROPI #### [facility] [address] [place], [place] [address] Commercial Counsel: Khadar Tang MD MCH (RBC) [Entitic mass] 25.3 pg Normal 25.2-33.5 [facility] Comment on above: Performed By: #### T ROPI #### [address] [place] [address] Commercial Counsel: Khadar Tang MD MCHC (RBC) [Mass/Vol] 32.1 g/dL Normal 28.4-34.8 [facility] Comment on above: Performed By: #### T ROPI #### [address] [place], [place] [address] Commercial Counsel: Khadar Tang MD MCV (RBC) [Entitic vol] 78.8 fL Low 82.6-102.9 [facility] Comment on above: Performed By: #### T ROPI #### [address] [place], [place] [address] Commercial Counsel: Khadar Tang MD Monocytes (Bld) [#/Vol] 0.82 10*3/uL Normal 0.10-1.20 [facility] Comment on above: Performed By: #### T ROPI #### [address] [place], [facility]83 Commercial Counsel: Khadar Tang MD Monocytes/100 WBC (Bld) 7 % Normal 3-12 [facility] Comment on above: Performed By: #### T ROPI #### [facility] [address] [place] [address] Dr. [place], [place] [phone] Commercial Counsel: Khadar Tang MD Neutrophil (Seg) 71 % High 36-65 [facility] Comment on above: Performed By: #### T ROPI #### [facility] [address] [place], [place] [phone] Commercial Counsel: Khadar Tang MD NRBC Automated 0.0 per 100 WBC Normal 0.0 [facility] Comment on above: Performed By: #### T ROPI #### [facility] [address] [place], [place] [phone] Commercial Counsel: Khadar Tang MD Platelet mean volume (Bld) [Entitic vol] 9.4 fL Normal 8.1-13.5 [facility] Comment on above: Performed By: #### T ROPI #### [facility] [address] [place], [place] [phone] Commercial Counsel: Khadar Tang MD Platelets (Bld) [#/Vol] 345 10*3/uL Normal 138-453 [facility] Comment on above: Performed By: #### T ROPI #### [facility] [address] [place], [place] [phone] Commercial Counsel: Khadar Tang MD RBC (Bld) [#/Vol] 3.44 10*6/uL Low 4.21-5.77 [facility] Comment on above: Performed By: #### T ROPI #### [facility] [address] [place], [place] [phone] Commercial Counsel: Khadar Tang MD WBC (Bld) [#/Vol] 12.5 10*3/uL High 3.5-11.3 [facility] Comment on above: Performed By: #### T ROPI #### [facility] [address] [place] [address] Commercial Counsel: Khadar Tang MD CMPon 06-22-2022 Albumin [Mass/Vol] 3.2 g/dL Low 3.5 - 5.2 g/dL [facility] Albumin/Globulin [Mass ratio] 0.7 {ratio} Low 1.0 - 2.5 [facility] ALP [Catalytic activity/Vol] 101 U/L 40 - 129 U/L [facility] ALT [Catalytic activity/Vol] 8 U/L 5 - 41 U/L [facility] Anion gap [Moles/Vol] 11 mmol/L 9 - 17 mmol/L [facility] AST [Catalytic activity/Vol] 13 U/L NINF - 40 U/L [facility] Bilirubin [Mass/Vol] mg/dL Low 0.3 - 1 .2 mg/dL [facility] Calcium [Mass/Vol] 9.1 mg/dL 8.6 - 10. 4 mg/dL [facility] Chloride [Moles/Vol] 110 mmol/L High 98 - 10 7 mmol/L [facility] CO2 [Moles/Vol] 16 mmol/L Low 20 - 31 mmol/L [facility] Creatinine [Mass/Vol] 1.93 mg/dL High 0.70 - 1.20 mg/dL [facility] GFR/1.73 sq M.predicted MDRD (S/P/Bld) [Vol rate/Area] 39 mL/min/{1.73_m2} Low - PINF [facility] Comment on above: These results are [...] High 70 - 99 mg/dL [facility] Interpretation and review of laboratory results Abnormal [facility] Potassium [Moles/Vol] 6.3 mmol/L Critically high 3.7 - 5.3 mmol/L [facility] Protein [Mass/Vol] 8.1 g/dL 6.4 - 8.3 g/dL [facility] Sodium [Moles/Vol] 137 mmol/L 135 - 144 mmol/L [facility] Urea nitrogen [Mass/Vol] 49 mg/dL High 8 - 23 mg/dL [facility] Urea nitrogen/Creatinine (Bld) [Mass ratio] 25 High 9 - 20 [facility] Comp Metabolic Profon 2022 Bilirubin [Mass/Vol] mg/dL Low 0.3-1.2 [facility] Comment on above: Performed By: #### C DP, MG, CP #### [facility] [address] [place] [address] Commercial Counsel: Khadar Tang MD Potassium [Moles/Vol] 6.3 mmol/L Critically high 3.7-5.3 [facility] Comment on above: Performed By: #### C DP, MG, CP #### [facility] [address] [place], [place] [phone] Commercial Counsel: Khadar Tang MD Albumin [Mass/Vol] 3.2 g/dL Low 3.5-5.2 [facility] Comment on above: Performed By: #### C DP, MG, CP #### [facility] [address] [place], [place] [phone] Commercial Counsel: Khadar Tang MD Albumin/Glob Ratio 0.7 Low 1.0-2.5 [facility] Comment on above: Performed By: #### C DP, MG, CP #### [facility] [address] [place], [place] [phone] Commercial Counsel: Khadar Tang MD Alkaline Phos 101 U/L Normal 40-129 [facility] Comment on above: Performed By: #### C DP, MG, CP #### [facility] [address] [place] [address] Commercial Counsel: Khadar Tang MD ALT [Catalytic activity/Vol] 8 U/L Normal 5-41 [facility] Comment on above: Performed By: #### C DP, MG, CP #### [facility] [address] [place], [place] [phone] Commercial Counsel: Khadar Tang MD Anion gap [Moles/Vol] 11 mmol/L Normal 9-17 [facility] Comment on above: Performed By: #### C DP, MG, CP #### [facility] [address] [place], [place] [phone] Commercial Counsel: Khadar Tang MD AST [Catalytic activity/Vol] 13 U/L Normal <40 [facility] Comment on above: Performed By: #### C DP, MG, CP #### [facility] [address] [place], [place] [phone] Commercial Counsel: Khadar Tang MD BUN/CRE Ratio 25 High 9-20 [facility] Comment on above: Performed By: #### C DP, MG, CP #### [facility] [address] [place] [address] Dr. [place], [place] [id number] Commercial Counsel: Khadar Tang MD Calcium [Mass/Vol] 9.1 mg/dL Normal 8.6-10.4 [facility] Comment on above: Performed By: #### C DP, MG, CP #### [facility] [address] [place] [address] Dr. [place], [place] [phone] Commercial Counsel: Khadar Tang MD Chloride [Moles/Vol] 110 mmol/L High 98-107 [facility] Comment on above: Performed By: #### C DP, MG, CP #### [facility] [address] [place], [place] [id number] Commercial Counsel: Khadar Tang MD CO2 [Moles/Vol] 16 mmol/L Low 20-31 [facility] Comment on above: Performed By: #### C DP, MG, CP #### [facility] [address] [place] [address] Commercial Counsel: Khadar Tang MD Creatinine [Mass/Vol] 1.93 mg/dL High 0.70-1.20 [facility] Comment on above: Performed By: #### C DP, MG, CP #### [facility] [address] [place] [address] Commercial Counsel: Khadar Tang MD GFR/1.73 sq M.predicted among non-blacks MDRD (S/P/Bld) [Vol rate/Area] 39 mL/min/{1.73_m2} Low >60 [facility] Comment on above: Result Comment: These [...] #### C DP, MG, CP #### [facility] [address] [place] [address] [place] [address] Commercial Counsel: Khadar Tang MD Glucose [Mass/Vol] 148 mg/dL High 70-99 [facility] Comment on above: Performed By: #### C DP, MG, CP #### [address] [place] [address] Commercial Counsel: Khadar Tang MD Protein [Mass/Vol] 8.1 g/dL Normal 6.4-8.3 [facility] Comment on above: Performed By: #### C DP, MG, CP #### [address] [place] [address] Commercial Counsel: Khadar Tang MD Sodium [Moles/Vol] 137 mmol/L Normal 135-144 [facility] Comment on above: Performed By: #### C DP, MG, CP #### [facility] [address] [place] [address] [place] [address] Commercial Counsel: Khadar Tang MD Urea nitrogen [Mass/Vol] 49 mg/dL High 8- [facility] Comment on above: Performed By: #### C DP, MG, CP #### [facility] [address] [place], [place] [address] Commercial Counsel: Khadar Tang MD EKG 12 LeadOrdered By: Michelle de la rosa on 06-22-2022 Atrial Rate 58 BPM [employer] Work Phone: P [place] 66 degrees [employer] Work Phone: P-R Interval 148 ms [employer] Work Phone: Q-T Interval 394 ms [employer] Work Phone: QRS Duration 94 ms [employer] Work Phone: QTc Calculation (Bazett) 386 ms [employer] Work Phone: R [place] 64 degrees [employer] Work Phone: T [place] -8 degrees [employer] Work Phone: Ventricular Rate 58 BPM [employer] Work Phone: [employer] Work Phone: EKG 12 Leadon 06-22-2022 [...] MD ([id number]) on 06/22/2022 10:09:31 PM [facility] RADIOLOGY Michelle Noe MD - 06/22/2022 Sinus bradycardia Inferior infarct , age undetermined Possible Anterolateral infarct , age undetermined Abnormal ECG When compared with ECG of 24-APR-2015 18:25, Vent. rate has decreased BY 39 BPM Borderline criteria for Anterolateral infarct are now Present T wave inversion now evident in Inferior leads QT has shortened Confirmed by Michelle Noe MD ([id number]) on 06/22/2022 10:09:31 PM [facility] Work Phone: Magnesiumon 06-22-2022 Magnesium [Mass/Vol] 2.0 mg/dL Normal 1.6-2.6 [facility] Comment on above: Performed By: #### C DP, MG, CP #### [facility] [address] [place] [address] Commercial Counsel: Khadar Tang MD Magnesium [Mass/Vol] 2.0 mg/dL 1.6 - 2 .6 mg/dL [facility] CT PELVIS WO CONon 2 CT [...] by: JESUSITA PAPPAS Date: 2022-03-14 09:50 Normal [facility] GLYCOHEMOGLOBIN A1Con 2021 ADA RECOMMENDATION ADA THERAPEUTIC TARG ET 6.0 - 7.0 ACTION SUGGESTED > 7.0 Normal [facility] Comment on above: Performed By: #### A 1C #### [facility] [address] [address] [address] Juan Smith Glucose [Mass/Vol] 180 mg/dL Normal [facility] Comment on above: Performed By: #### A 1C #### [facility] [address] [address] [address] Juan Smith HbA1c (Bld) [Mass fraction] 7.9 % Critically high <=6.0 [facility] Comment on above: Performed By: #### A 1C #### [facility] [address] [address] [address] Juan Smith Cult,Aerobe/Anaerobeon 04-15 Neutrophils Specimen Description .TISSUE RIGHT MEDIAL HEEL POST IRRIGATIONSpecial Requests NOT REPORTEDDirect Exam NO NEUTROPHILS SEEN NO BACTERIA SEEN Culture METHICILLIN RESISTANT STAPHYLOCOCCUS AUREUS SCANT GROWTH For susceptibility, refer to previous culture. STREPTOCOCCI, BETA HEMOLYTIC GROUP C SCANT GROWTH DIPHTHEROIDS SCANT GROWTH NO ANAEROBIC ORGANISMS ISOLATED AT 5 DAYS Report Status FINAL 04/15/2017 Normal [facility] Comment on above: Performed By: #### A ANC ####[address] [address] [id number] Neutrophils Specimen Description .TISSUE RIGHT ANKLE PRE IRRIGATIONSpecial Requests NOT REPORTEDDirect Exam NO NEUTROPHILS SEEN RARE GRAM POSITIVE COCCI IN PAIRS Culture METHICILLIN RESISTANT STAPHYLOCOCCUS AUREUS LIGHT GROWTH For susceptibility, refer to previous culture. STREPTOCOCCI, BETA HEMOLYTIC GROUP C SCANT GROWTH NO ANAEROBIC ORGANISMS ISOLATED AT 5 DAYS Report Status FINAL 04/15/2017 Normal [facility] Comment on above: Performed By: #### A ANC ####[address] [address] Neutrophils Specimen Description .TISSUE RIGHT MEDIAL HEEL PRE IRRIGATIONSpecial Requests NOT REPORTEDDirect Exam NO NEUTROPHILS SEEN NO BACTERIA SEEN Culture STREPTOCOCCI, BETA HEMOLYTIC GROUP C LIGHT GROWTH METHICILLIN RESISTANT STAPHYLOCOCCUS AUREUS SCANT GROWTH For susceptibility, refer to previous culture. DIPHTHEROIDS LIGHT GROWTH NO ANAEROBIC ORGANISMS ISOLATED AT 5 DAYS Report Status FINAL 04/15/2017 [facility] Comment on above: Performed By: #### A ANC ####[address] [address] Basic Metabolic Profon 04-13 (cont.) Normal [facility] Comment on above: Result Comment: Aver age GFR for 50-59 years old: 93 mL/min/1.73sq mChronic Kidney Disease: <60 mL/min/1.73sq mKidney failure: <15 mL/min/1.73sq meGFR calculated using average adult body mass. Additional eGFR calculator available at:http://[email or web address]/multiple_[email or web address] [address] [place], [place] 6078508 ([phone] Performed By: #### C DP, CMPX, CRP, SED, GLYHGB ####[address] [address] Anion gap 11 mmol/L Normal - [facility] Comment on above: Performed By: #### C DP, CMPX, CRP, SED, GLYHGB ####[address] [address] Calcium 8.7 mg/dL Normal 8.6-10.4 [facility] Comment on above: Performed By: #### C DP, CMPX, CRP, SED, GLYHGB ####[address] [address] Chloride 106 mmol/L Normal 98-107 [facility] Comment on above: Performed By: #### C DP, CMPX, CRP, SED, GLYHGB ####[address] [address] CO2 22 mmol/L Normal 20-31 [facility] Comment on above: Performed By: #### C DP, CMPX, CRP, SED, GLYHGB ####[address] [address] Creatinine 1.04 mg/dL Normal 0.70-1.20 [facility] Comment on above: Performed By: #### C DP, CMPX, CRP, SED, GLYHGB ####[address] [address] eGFR (non-black) mL/min/{1.73_m2} Normal >60 [facility] Comment on above: Performed By: #### C DP, CMPX, CRP, SED, GLYHGB ####[address] [address] Glucose mass conc 174 mg/dL High 70-99 [facility] Comment on above: Performed By: #### C DP, CMPX, CRP, SED, GLYHGB ####[address] [address] Potassium molar conc 4.1 mmol/L Normal 3.7-5.3 [facility] Comment on above: Performed By: #### C DP, CMPX, CRP, SED, GLYHGB ####[address] [address] Sodium 139 mmol/L Normal 135-144 [facility] Comment on above: Performed By: #### C DP, CMPX, CRP, SED, GLYHGB ####[address] [address] Urea nitrogen 16 mg/dL Normal 6-20 [facility] Comment on above: Performed By: #### C DP, CMPX, CRP, SED, GLYHGB ####[address] [address] BUN/CRE Ratio NOT REPORTED Normal 9-20 [facility] Comment on above: Performed By: #### C DP, CMPX, CRP, SED, GLYHGB ####[address] [address] Staging: NOT REPORTED Normal [facility] Comment on above: Performed By: #### C DP, CMPX, CRP, SED, GLYHGB ####[address] [address] CBC with Diffon 04-13-2017 Abs. Basophil <0.03 Normal 0.00-0.20 [facility] Comment on above: Performed By: #### C DP, CMPX, CRP, SED, GLYHGB ####[address] [address] Abs.Neutrophil (Seg) 4.97 k/uL Normal 1.50-8.10 [facility] Comment on above: Performed By: #### C DP, CMPX, CRP, SED, GLYHGB ####[address] [address] Basophils/100 WBC Auto (Bld) 0 % Normal 0-2 [facility] Comment on above: Performed By: #### C DP, CMPX, CRP, SED, GLYHGB ####[address] [address] Eosinophils 0.24 10*3/uL Normal 0.00-0.44 [facility] Comment on above: Performed By: #### C DP, CMPX, CRP, SED, GLYHGB ####[address] [address] Eosinophils/100 leukocytes 3 % Normal 1-4 [facility] Comment on above: Performed By: #### C DP, CMPX, CRP, SED, GLYHGB ####[address] [address] Erythrocyte distribution width Auto Ratio (RBC) 14.8 % High 11.8-14.4 [facility] Comment on above: Performed By: #### C DP, CMPX, CRP, SED, GLYHGB ####[address] [address] Erythrocyte morphology ANISOCYTOSIS PRESENT Normal [facility] Comment on above: Result Comment: [id number] [place] [address] Performed By: #### C DP, CMPX, CRP, SED, GLYHGB ####[address] [address] Erythrocytes (RBC) 0.0 per 100 WBC Normal 0.0 [facility] Comment on above: Performed By: #### C DP, CMPX, CRP, SED, GLYHGB ####[address] [address] Erythrocytes (RBC) 3.42 10*6/uL Low 4.21-5.77 [facility] Comment on above: Performed By: #### C DP, CMPX, CRP, SED, GLYHGB ####[address] [address] Granulocytes/100 WBC (Bld) 0.19 k/uL Normal 0.00-0.30 [facility] Comment on above: Performed By: #### C DP, CMPX, CRP, SED, GLYHGB ####[address] [address] Hematocrit (HCT) 29.4 % Low 40.7-50.3 [facility] Comment on above: Performed By: #### C DP, CMPX, CRP, SED, GLYHGB ####[address] [address] Hemoglobin mass conc (Bld) 8.8 g/dL Low 13.0-17.0 [facility] Comment on above: Performed By: #### C DP, CMPX, CRP, SED, GLYHGB ####[address] [address] Immature granulocytes #/vol (Bld) 2 % High 0 [facility] Comment on above: Performed By: #### C DP, CMPX, CRP, SED, GLYHGB ####[address] [address] Lymphocytes 2.00 10*3/uL Normal 1.10-3.70 [facility] Comment on above: Performed By: #### C DP, CMPX, CRP, SED, GLYHGB ####[address] [address] Lymphocytes/100 leukocytes 25 % Normal 24-43 [facility] Comment on above: Performed By: #### C DP, CMPX, CRP, SED, GLYHGB ####[address] [address] MCH 25.7 pg Normal 25.2-33.5 [facility] Comment on above: Performed By: #### C DP, CMPX, CRP, SED, GLYHGB ####[address] [address] MCHC mass conc (RBC) 29.9 g/dL Normal 28.4-34.8 [facility] Comment on above: Performed By: #### C DP, CMPX, CRP, SED, GLYHGB ####[address] [address] MCV 86.0 fL Normal 82.6-102.9 [facility] Comment on above: Performed By: #### C DP, CMPX, CRP, SED, GLYHGB ####[address] [address] Monocytes 0.53 10*3/uL Normal 0.10-1.20 [facility] Comment on above: Performed By: #### C DP, CMPX, CRP, SED, GLYHGB ####[address] [address] Monocytes/100 leukocytes 7 % Normal 3-12 [facility] Comment on above: Performed By: #### C DP, CMPX, CRP, SED, GLYHGB ####[address] [address] Neutrophil (Seg) 63 % Normal 36-65 [facility] Comment on above: Performed By: #### C DP, CMPX, CRP, SED, GLYHGB ####[address] [address] Platelet mean volume (PMV) 9.9 fL Normal 8.1-13.5 [facility] Comment on above: Performed By: #### C DP, CMPX, CRP, SED, GLYHGB ####[address] [address] Platelets 257 10*3/uL Normal 138-453 [facility] Comment on above: Performed By: #### C DP, CMPX, CRP, SED, GLYHGB ####[address] 7298408 WBC (Leukocytes) 8.0 10*3/uL Normal 3.5-11.3 [facility] Comment on above: Performed By: #### C DP, CMPX, CRP, SED, GLYHGB ####[facility] [address] [place] [address] Auto Diff Performed NOT REPORTED Normal [facility] Comment on above: Performed By: #### C DP, CMPX, CRP, SED, GLYHGB ####[facility] [address] [place] [address] Platelets NOT REPORTED Normal [facility] Comment on above: Performed By: #### C DP, CMPX, CRP, SED, GLYHGB ####[facility] [address] [place] [address] WBC Morphology NOT REPORTED Normal [facility] Comment on above: Performed By: #### C DP, CMPX, CRP, SED, GLYHGB ####[facility] [address] [place] [address] Discharge Summaryon 04-13-19 18 HIM IP Note OR Pneumatic Tube Fitter Normal [facility] Plan of Careon 04-13-2017 HIM IP Note OR Pneumatic Tube Fitter Normal [facility] HIM IP Note OR Pneumatic Tube Fitter Normal [facility] Progress Noteon 04-13-2017 HIM IP Note OR Pneumatic Tube Fitter Normal [facility] HIM IP Note OR Pneumatic Tube Fitter Normal [facility] HIM IP Note OR Pneumatic Tube Fitter Normal [facility] HIM IP Note OR Pneumatic Tube Fitter Normal [facility] HIM IP Note OR Pneumatic Tube Fitter Normal [facility] HIM IP Note OR Pneumatic Tube Fitter Normal [facility] Basic Metabolic Profon 04-12 (cont.) Normal [facility] Comment on above: Result Comment: Aver age GFR for 50-59 years old: 93 mL/min/1.73sq mChronic Kidney Disease: <60 mL/min/1.73sq mKidney failure: <15 mL/min/1.73sq meGFR calculated using average adult body mass. Additional eGFR calculator available at:http://www.[email or web address]_[email or web address].htm[address] [address] Performed By: #### C DP, CMPX, CRP, SED, GLYHGB ####[address] [address] Anion gap 8 mmol/L Low 9-17 [facility] Comment on above: Performed By: #### C DP, CMPX, CRP, SED, GLYHGB ####[address] [address] Calcium 8.8 mg/dL Normal 8.6-10.4 [facility] Comment on above: Performed By: #### C DP, CMPX, CRP, SED, GLYHGB ####[address] [address] Chloride 107 mmol/L Normal 98-107 [facility] Comment on above: Performed By: #### C DP, CMPX, CRP, SED, GLYHGB ####[address] [address] CO2 23 mmol/L Normal 20-31 [facility] Comment on above: Performed By: #### C DP, CMPX, CRP, SED, GLYHGB ####[address] [address] Creatinine 1.01 mg/dL Normal 0.70-1.20 [facility] Comment on above: Performed By: #### C DP, CMPX, CRP, SED, GLYHGB ####[address] [address] eGFR (non-black) mL/min/{1.73_m2} Normal >60 [facility] Comment on above: Performed By: #### C DP, CMPX, CRP, SED, GLYHGB ####[address] [place] [address] Glucose mass conc 172 mg/dL High 70-99 [facility] Comment on above: Performed By: #### C DP, CMPX, CRP, SED, GLYHGB ####[address] [address] Potassium molar conc 3.9 mmol/L Normal 3.7-5.3 [facility] Comment on above: Performed By: #### C DP, CMPX, CRP, SED, GLYHGB ####[address] [address] Sodium 138 mmol/L Normal 135-144 [facility] Comment on above: Performed By: #### C DP, CMPX, CRP, SED, GLYHGB ####[address] [address] Urea nitrogen 15 mg/dL Normal 6-20 [facility] Comment on above: Performed By: #### C DP, CMPX, CRP, SED, GLYHGB ####[address] [place] [address] BUN/CRE Ratio NOT REPORTED Normal 9-20 [facility] Comment on above: Performed By: #### C DP, CMPX, CRP, SED, GLYHGB ####[address] [place] [address] Staging: NOT REPORTED Normal [facility] Comment on above: Performed By: #### C DP, CMPX, CRP, SED, GLYHGB ####[address] [address] CBC with Diffon 04-12-2017 Abs. Basophil <0.03 Normal 0.00-0.20 [facility] Comment on above: Performed By: #### C DP, CMPX, CRP, SED, GLYHGB ####[address] [address] Abs.Neutrophil (Seg) 4.31 k/uL Normal 1.50-8.10 [facility] Comment on above: Performed By: #### C DP, CMPX, CRP, SED, GLYHGB ####[address] [address] Basophils/100 WBC Auto (Bld) 0 % Normal 0-2 [facility] Comment on above: Performed By: #### C DP, CMPX, CRP, SED, GLYHGB ####[address] [address] Eosinophils 0.21 10*3/uL Normal 0.00-0.44 [facility] Comment on above: Performed By: #### C DP, CMPX, CRP, SED, GLYHGB ####[address] [address] Eosinophils/100 leukocytes 3 % Normal 1-4 [facility] Comment on above: Performed By: #### C DP, CMPX, CRP, SED, GLYHGB ####[address] [address] Erythrocyte distribution width Auto Ratio (RBC) 14.7 % High 11.8-14.4 [facility] Comment on above: Performed By: #### C DP, CMPX, CRP, SED, GLYHGB ####[address] [address] Erythrocyte morphology ANISOCYTOSIS PRESENT Normal [facility] Comment on above: Result Comment: [address] [address] Performed By: #### C DP, CMPX, CRP, SED, GLYHGB ####[address] [address] Erythrocytes (RBC) 3.45 10*6/uL Low 4.21-5.77 [facility] Comment on above: Performed By: #### C DP, CMPX, CRP, SED, GLYHGB ####[address] [address] Granulocytes/100 WBC (Bld) 0.22 k/uL Normal 0.00-0.30 [facility] Comment on above: Performed By: #### C DP, CMPX, CRP, SED, GLYHGB ####[address] [address] Hematocrit (HCT) 28.9 % Low 40.7-50.3 [facility] Comment on above: Performed By: #### C DP, CMPX, CRP, SED, GLYHGB ####[address] [address] Hemoglobin mass conc (Bld) 8.9 g/dL Low 13.0-17.0 [facility] Comment on above: Performed By: #### C DP, CMPX, CRP, SED, GLYHGB ####[address] [address] Immature granulocytes #/vol (Bld) 3 % High 0 [facility] Comment on above: Performed By: #### C DP, CMPX, CRP, SED, GLYHGB ####[address] [address] Lymphocytes 1.83 10*3/uL Normal 1.10-3.70 [facility] Comment on above: Performed By: #### C DP, CMPX, CRP, SED, GLYHGB ####[address] [address] Lymphocytes/100 leukocytes 26 % Normal 24-43 [facility] Comment on above: Performed By: #### C DP, CMPX, CRP, SED, GLYHGB ####[address] [address] MCH 25.8 pg Normal 25.2-33.5 [facility] Comment on above: Performed By: #### C DP, CMPX, CRP, SED, GLYHGB ####[address] [address] MCHC mass conc (RBC) 30.8 g/dL Normal 28.4-34.8 [facility] Comment on above: Performed By: #### C DP, CMPX, CRP, SED, GLYHGB ####[address] [address] MCV 83.8 fL Normal 82.6-102.9 [facility] Comment on above: Performed By: #### C DP, CMPX, CRP, SED, GLYHGB ####[address] [address] Monocytes 0.58 10*3/uL Normal 0.10-1.20 [facility] Comment on above: Performed By: #### C DP, CMPX, CRP, SED, GLYHGB ####[address] [address] Monocytes/100 leukocytes 8 % Normal 3-12 [facility] Comment on above: Performed By: #### C DP, CMPX, CRP, SED, GLYHGB ####[address] [address] Neutrophil (Seg) 60 % Normal 36-65 [facility] Comment on above: Performed By: #### C DP, CMPX, CRP, SED, GLYHGB ####[address] [address] Platelet mean volume (PMV) 9.3 fL Normal 8.1-13.5 [facility] Comment on above: Performed By: #### C DP, CMPX, CRP, SED, GLYHGB ####[address] [address] Platelets 231 10*3/uL Normal 138-453 [facility] Comment on above: Performed By: #### C DP, CMPX, CRP, SED, GLYHGB ####[facility] [address] [address] WBC (Leukocytes) 7.2 10*3/uL Normal 3.5-11.3 [facility] Comment on above: Performed By: #### C DP, CMPX, CRP, SED, GLYHGB ####[address] [address] Auto Diff Performed NOT REPORTED Normal [facility] Comment on above: Performed By: #### C DP, CMPX, CRP, SED, GLYHGB ####[address] [address] Platelets NOT REPORTED Normal [facility] Comment on above: Performed By: #### C DP, CMPX, CRP, SED, GLYHGB ####[address] [address] WBC Morphology NOT REPORTED Normal [facility] Comment on above: Performed By: #### C DP, CMPX, CRP, SED, GLYHGB ####[address] [address] Cult,Aerobe/Anaerobeon 04-12 Neutrophils Specimen Description .TISSUE RIGHT [...] NOT REPORTEDTrimethoprim/Sulfa <=10 SUSCEPTIBLEVancomycin 1 SUSCEPTIBLE Normal [facility] Comment on above: Performed By: #### A ANC ####[address] [address] Plan of Careon 04-12-2017 HIM IP Note OR Pneumatic Tube Fitter Normal [facility] HIM IP Note OR Pneumatic Tube Fitter Normal [facility] HIM IP Note OR Pneumatic Tube Fitter Normal [facility] HIM IP Note OR Pneumatic Tube Fitter Normal [facility] HIM IP Note OR Pneumatic Tube Fitter Normal [facility] Progress Noteon 04-12-2017 HIM IP Note OR Pneumatic Tube Fitter Normal [facility] HIM IP Note OR Pneumatic Tube Fitter Normal [facility] HIM IP Note OR Pneumatic Tube Fitter Normal [facility] HIM IP Note OR Pneumatic Tube Fitter Normal [facility] HIM IP Note OR Pneumatic Tube Fitter Normal [facility] HIM IP Note OR Pneumatic Tube Fitter Normal [facility] Basic Metabolic Profon 04-11 (cont.) Normal [facility] Comment on above: Result Comment: Aver age GFR for 50-59 years old: 93 mL/min/1.73sq mChronic Kidney Disease: <60 mL/min/1.73sq mKidney failure: <15 mL/min/1.73sq meGFR calculated using average adult body mass. Additional eGFR calculator available at:http://www.[email or web address]_[email or web address] [address] [place] [address] ([phone] Performed By: #### C DP, CMPX, CRP, SED, GLYHGB ####[address] [place] [address] Anion gap 14 mmol/L Normal 9-17 [facility] Comment on above: Performed By: #### C DP, CMPX, CRP, SED, GLYHGB ####[address] [place] [address] Calcium 8.2 mg/dL Low 8.6-10.4 [facility] Comment on above: Performed By: #### C DP, CMPX, CRP, SED, GLYHGB ####[address] [address] Chloride 101 mmol/L Normal 98-107 [facility] Comment on above: Performed By: #### C DP, CMPX, CRP, SED, GLYHGB ####[address] [address] CO2 21 mmol/L Normal 20-31 [facility] Comment on above: Performed By: #### C DP, CMPX, CRP, SED, GLYHGB ####[address] [address] Creatinine 1.16 mg/dL Normal 0.70-1.20 [facility] Comment on above: Performed By: #### C DP, CMPX, CRP, SED, GLYHGB ####[address] [address] eGFR (non-black) mL/min/{1.73_m2} Normal >60 [facility] Comment on above: Performed By: #### C DP, CMPX, CRP, SED, GLYHGB ####[address] [address] Glucose mass conc 153 mg/dL High 70-99 [facility] Comment on above: Performed By: #### C DP, CMPX, CRP, SED, GLYHGB ####[address] [address] Potassium molar conc 4.0 mmol/L Normal 3.7-5.3 [facility] Comment on above: Performed By: #### C DP, CMPX, CRP, SED, GLYHGB ####[address] [address] Sodium 136 mmol/L Normal 135-144 [facility] Comment on above: Performed By: #### C DP, CMPX, CRP, SED, GLYHGB ####[address] [address] Urea nitrogen 18 mg/dL Normal 6-20 [facility] Comment on above: Performed By: #### C DP, CMPX, CRP, SED, GLYHGB ####[address] [address] BUN/CRE Ratio NOT REPORTED Normal -20 [facility] Comment on above: Performed By: #### C DP, CMPX, CRP, SED, GLYHGB ####[address] [address] Staging: NOT REPORTED Normal [facility] Comment on above: Performed By: #### C DP, CMPX, CRP, SED, GLYHGB ####[address] [address] C-Reactive Proteinon 018 C reactive protein (CRP) 55.5 mg/L High 0.0-5.0 [facility] Comment on above: Result Comment: [address] [address] Performed By: #### C DP, CMPX, CRP, SED, GLYHGB ####[address] [address] CBC with Diffon 04-11-2017 Abs. Basophil <0.03 Normal 0.00-0.20 [facility] Comment on above: Performed By: #### C DP, CMPX, CRP, SED, GLYHGB ####[address] [address] Abs.Neutrophil (Seg) 5.04 k/uL Normal 1.50-8.10 [facility] Comment on above: Performed By: #### C DP, CMPX, CRP, SED, GLYHGB ####[address] [address] Basophils/100 WBC Auto (Bld) 0 % Normal 0-2 [facility] Comment on above: Performed By: #### C DP, CMPX, CRP, SED, GLYHGB ####[address] [address] Eosinophils 0.24 10*3/uL Normal 0.00-0.44 [facility] Comment on above: Performed By: #### C DP, CMPX, CRP, SED, GLYHGB ####[address] [address] Eosinophils/100 leukocytes 3 % Normal 1-4 [facility] Comment on above: Performed By: #### C DP, CMPX, CRP, SED, GLYHGB ####[address] [address] Erythrocyte distribution width Auto Ratio (RBC) 14.8 % High 11.8-14.4 [facility] Comment on above: Performed By: #### C DP, CMPX, CRP, SED, GLYHGB ####[address] [address] Erythrocyte morphology ANISOCYTOSIS PRESENT Normal [facility] Comment on above: Result Comment: [address] [address] Performed By: #### C DP, CMPX, CRP, SED, GLYHGB ####[address] [address] Erythrocytes (RBC) 3.36 10*6/uL Low 4.21-5.77 [facility] Comment on above: Performed By: #### C DP, CMPX, CRP, SED, GLYHGB ####[address] [address] Granulocytes/100 WBC (Bld) 0.09 k/uL Normal 0.00-0.30 [facility] Comment on above: Performed By: #### C DP, CMPX, CRP, SED, GLYHGB ####[address] [address] Hematocrit (HCT) 28.8 % Low 40.7-50.3 [facility] Comment on above: Performed By: #### C DP, CMPX, CRP, SED, GLYHGB ####[address] [address] Hemoglobin mass conc (Bld) 8.8 g/dL Low 13.0-17.0 [facility] Comment on above: Performed By: #### C DP, CMPX, CRP, SED, GLYHGB ####[address] [address] Immature granulocytes #/vol (Bld) 1 % High 0 [facility] Comment on above: Performed By: #### C DP, CMPX, CRP, SED, GLYHGB ####[address] [address] Lymphocytes 1.73 10*3/uL Normal 1.10-3.70 [facility] Comment on above: Performed By: #### C DP, CMPX, CRP, SED, GLYHGB ####[address] [address] Lymphocytes/100 leukocytes 23 % Low 24-43 [facility] Comment on above: Performed By: #### C DP, CMPX, CRP, SED, GLYHGB ####[address] [address] MCH 26.2 pg Normal 25.2-33.5 [facility] Comment on above: Performed By: #### C DP, CMPX, CRP, SED, GLYHGB ####[address] [address] MCHC mass conc (RBC) 30.6 g/dL Normal 28.4-34.8 [facility] Comment on above: Performed By: #### C DP, CMPX, CRP, SED, GLYHGB ####[address] [address] MCV 85.7 fL Normal 82.6-102.9 [facility] Comment on above: Performed By: #### C DP, CMPX, CRP, SED, GLYHGB ####[address] [address] Monocytes 0.56 10*3/uL Normal 0.10-1.20 [facility] Comment on above: Performed By: #### C DP, CMPX, CRP, SED, GLYHGB ####[address] [address] Monocytes/100 leukocytes 7 % Normal 3-12 [facility] Comment on above: Performed By: #### C DP, CMPX, CRP, SED, GLYHGB ####[address] [address] Neutrophil (Seg) 66 % High 36-65 [facility] Comment on above: Performed By: #### C DP, CMPX, CRP, SED, GLYHGB ####[address] [address] Platelet mean volume (PMV) 9.9 fL Normal 8.1-13.5 [facility] Comment on above: Performed By: #### C DP, CMPX, CRP, SED, GLYHGB ####[address] [address] Platelets 264 10*3/uL Normal 138-453 [facility] Comment on above: Performed By: #### C DP, CMPX, CRP, SED, GLYHGB ####[address] [address] WBC (Leukocytes) 7.7 10*3/uL Normal 3.5-11.3 [facility] Comment on above: Performed By: #### C DP, CMPX, CRP, SED, GLYHGB ####[address] [address] Auto Diff Performed NOT REPORTED Normal [facility] Comment on above: Performed By: #### C DP, CMPX, CRP, SED, GLYHGB ####[address] [address] Platelets NOT REPORTED Normal [facility] Comment on above: Performed By: #### C DP, CMPX, CRP, SED, GLYHGB ####[address] [address] WBC Morphology NOT REPORTED Normal [facility] Comment on above: Performed By: #### C DP, CMPX, CRP, SED, GLYHGB ####[address] [address] Hemoglobin A1Con 04-11-2017 Glucose mass conc 315 mg/dL Normal [facility] Comment on above: Result Comment: The ADA and AACC recommend providing the estimated average glucose result to permit better patient understanding of their HBA1c result.[address] [id number] ([phone] Performed By: #### C DP, CMPX, CRP, SED, GLYHGB ####[address] [place], [place] [id number] Hemoglobin A1c/Hemoglobin.total mass fraction (Bld) 12.6 % High 4.0-6.0 [facility] Comment on above: Performed By: #### C DP, CMPX, CRP, SED, GLYHGB ####[address] [place], [place] [id number] Plan of Careon 04-11-2017 HIM IP Note OR Pneumatic Tube Fitter Normal [facility] HIM IP Note OR Pneumatic Tube Fitter Normal [facility] HIM IP Note OR Pneumatic Tube Fitter Normal [facility] HIM IP Note OR Pneumatic Tube Fitter Normal [facility] Progress Noteon 04-11-2017 HIM IP Note OR Pneumatic Tube Fitter Normal [facility] HIM IP Note OR Pneumatic Tube Fitter Normal [facility] HIM IP Note OR Pneumatic Tube Fitter Normal [facility] HIM IP Note OR Pneumatic Tube Fitter Normal [facility] Consulton 04-10-2017 HIM IP Note OR Pneumatic Tube Fitter Normal [facility] Cult,Urine,Cathon 04-10-2017 Cult,Urine,Cath Specimen Description .CATHETERIZED URINE Special Requests NOT REPORTED Culture PRESUMPTIVE ID: LEO ALBICANS >[id number] CFU/ML Report Status FINAL 04/10/2017 [facility] Comment on above: Performed By: #### C DP, CMPX, CRP, SED, GLYHGB ####[facility] [place], [place] [address] Influenza A + B, PCRon 04-10 Influenza A + B, PCR Specimen Descriptio n .NASOPHARYNGEAL SWABSpecial Requests NOT REPORTEDDirect Exam NEGATIVE: Influenza A and B RNA not detected by nucleic acid amplification. The results obtained should be interpreted in conjunction with clinical findings and other laboratory markers. The performance characterisitics of this molecular test were validated by the molecular microbiology department of [facility]. Report Status FINAL 04/10/2017 [facility] Comment on above: Performed By: #### C DP, CMPX, CRP, SED, GLYHGB ####[facility] [address] [place], [place] [id number] OPERATIVE REPORTon 8 OPERATIVE REPORT [facility] [address] [place] [address] OPERATIVE REPORTPATIENT NAME: GANGA STINSON : 1960[facility] REC NO: [id number] ROOM: [address] [place] [address] NO: [id number] ADMIT DATE: 04/09/2017PROVIDER: William Foster-JudgeDATE OF PROCEDURE: [...] for recovery. The patient has a primary abrasive sawyer, Dr. 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 The department of Infectious Disease,Internal Medicine, and specialty medicine services will provide care duringthe inpatient admission. He will return to the care of Dr. Min [place], [place], upon discharge.INDICATIONS FOR OPERATION: This is [...] He would follow up with his usual abrasive sawyer on anoutpatient basis. The departments of Internal Medicine and InfectiousDisease will guide our care in the interim. Cultures should be availablewith sensitivities in approximately 72 hours and consider dischargeplanning then.WILLIAM FOSTER-JUDGED: 04/10/2017 15:31:53 MS/[id number]_IJob#: [id number] Doc#: [id number]: Yakov Min [facility] Department of Infectious Disease Internal Medicine Normal [facility] Plan of Careon 04-10-2017 HIM IP Note OR Pneumatic Tube Fitter Normal [facility] HIM IP Note OR Pneumatic Tube Fitter Normal [facility] Progress Noteon 04-10-2017 HIM IP Note OR Pneumatic Tube Fitter Normal [facility] HIM IP Note OR Pneumatic Tube Fitter Normal [facility] XR ANKLE RIGHT STANDARDon XR ANKLE RIGHT [...] Bakerigned by:Roberto Carlos Cavazos MD04/09/17inal result Normal [facility] C-Reactive Proteinon 018 C reactive protein (CRP) 114.3 mg/L High 0.0-5.0 [facility] Comment on above: Result Comment: [facility] [address] [place], [place] [id number] ([phone] Performed By: #### C DP, CMPX, CRP, SED, GLYHGB ####[facility] [place] [address] CBC with Diffon 04-09-2017 Abs. Basophil <0.03 Normal 0.00-0.20 [facility] Comment on above: Performed By: #### C DP, CMPX, CRP, SED, GLYHGB ####[address] [address] Abs.Neutrophil (Seg) 5.95 k/uL Normal 1.50-8.10 [facility] Comment on above: Performed By: #### C DP, CMPX, CRP, SED, GLYHGB ####[address] [address] Basophils/100 WBC Auto (Bld) 0 % Normal 0-2 [facility] Comment on above: Performed By: #### C DP, CMPX, CRP, SED, GLYHGB ####[address] [address] Eosinophils 0.11 10*3/uL Normal 0.00-0.44 [facility] Comment on above: Performed By: #### C DP, CMPX, CRP, SED, GLYHGB ####[address] [address] Eosinophils/100 leukocytes 1 % Normal 1-4 [facility] Comment on above: Performed By: #### C DP, CMPX, CRP, SED, GLYHGB ####[address] [address] Erythrocyte distribution width Auto Ratio (RBC) 15.0 % High 11.8-14.4 [facility] Comment on above: Performed By: #### C DP, CMPX, CRP, SED, GLYHGB ####[address] [address] Erythrocyte morphology ANISOCYTOSIS PRESENT Normal [facility] Comment on above: Result Comment: [address] [place] [address] Performed By: #### C DP, CMPX, CRP, SED, GLYHGB ####[address] [address] Erythrocytes (RBC) 3.50 10*6/uL Low 4.21-5.77 [facility] Comment on above: Performed By: #### C DP, CMPX, CRP, SED, GLYHGB ####[place] [address] Granulocytes/100 WBC (Bld) 0.09 k/uL Normal 0.00-0.30 [facility] Comment on above: Performed By: #### C DP, CMPX, CRP, SED, GLYHGB ####[address] [address] Hematocrit (HCT) 29.9 % Low 40.7-50.3 [facility] Comment on above: Performed By: #### C DP, CMPX, CRP, SED, GLYHGB ####[address] [address] Hemoglobin mass conc (Bld) 9.0 g/dL Low 13.0-17.0 [facility] Comment on above: Performed By: #### C DP, CMPX, CRP, SED, GLYHGB ####[address] [address] Immature granulocytes #/vol (Bld) 1 % High 0 [facility] Comment on above: Performed By: #### C DP, CMPX, CRP, SED, GLYHGB ####[address] [address] Lymphocytes 1.60 10*3/uL Normal 1.10-3.70 [facility] Comment on above: Performed By: #### C DP, CMPX, CRP, SED, GLYHGB ####[address] [address] Lymphocytes/100 leukocytes 19 % Low 24-43 [facility] Comment on above: Performed By: #### C DP, CMPX, CRP, SED, GLYHGB ####[address] [address] MCH 25.7 pg Normal 25.2-33.5 [facility] Comment on above: Performed By: #### C DP, CMPX, CRP, SED, GLYHGB ####[address] [address] MCHC mass conc (RBC) 30.1 g/dL Normal 28.4-34.8 [facility] Comment on above: Performed By: #### C DP, CMPX, CRP, SED, GLYHGB ####[address] [address] MCV 85.4 fL Normal 82.6-102.9 [facility] Comment on above: Performed By: #### C DP, CMPX, CRP, SED, GLYHGB ####[address] [address] Monocytes 0.53 10*3/uL Normal 0.10-1.20 [facility] Comment on above: Performed By: #### C DP, CMPX, CRP, SED, GLYHGB ####[address] [address] Monocytes/100 leukocytes 6 % Normal 3-12 [facility] Comment on above: Performed By: #### C DP, CMPX, CRP, SED, GLYHGB ####[address] [address] Neutrophil (Seg) 73 % High 36-65 [facility] Comment on above: Performed By: #### C DP, CMPX, CRP, SED, GLYHGB ####[address] [address] Platelet mean volume (PMV) 9.6 fL Normal 8.1-13.5 [facility] Comment on above: Performed By: #### C DP, CMPX, CRP, SED, GLYHGB ####[address] [address] Platelets 224 10*3/uL Normal 138-453 [facility] Comment on above: Performed By: #### C DP, CMPX, CRP, SED, GLYHGB ####[address] [address] WBC (Leukocytes) 8.3 10*3/uL Normal 3.5-11.3 [facility] Comment on above: Performed By: #### C DP, CMPX, CRP, SED, GLYHGB ####[address] [address] Auto Diff Performed NOT REPORTED Normal [facility] Comment on above: Performed By: #### C DP, CMPX, CRP, SED, GLYHGB ####[address] [address] Platelets NOT REPORTED Normal [facility] Comment on above: Performed By: #### C DP, CMPX, CRP, SED, GLYHGB ####[address] [address] WBC Morphology NOT REPORTED Normal [facility] Comment on above: Performed By: #### C DP, CMPX, CRP, SED, GLYHGB ####[address] [address] Comp Metabolic Pr/rfx MGon 0 - (cont.) Normal [facility] Comment on above: Result Comment: Aver age GFR for 50-59 years old: 93 mL/min/1.73sq mChronic Kidney Disease: <60 mL/min/1.73sq mKidney failure: <15 mL/min/1.73sq meGFR calculated using average adult body mass. Additional eGFR calculator available at:[email or web address] Community [facility] [address] [place] [address] Performed By: #### C DP, CMPX, CRP, SED, GLYHGB ####[address] [address] Alanine aminotransferase (ALT) 9 U/L Normal 5-41 [facility] Comment on above: Performed By: #### C DP, CMPX, CRP, SED, GLYHGB ####[address] [address] Albumin 2.8 g/dL Low 3.5-5.2 [facility] Comment on above: Performed By: #### C DP, CMPX, CRP, SED, GLYHGB ####[facility] [place] [address] Albumin/Globulin Ratio 0.7 {ratio} Low 1.0-2.5 [facility] Comment on above: Performed By: #### C DP, CMPX, CRP, SED, GLYHGB ####[address] [address] Alkaline Phos 57 U/L Normal 40-129 [facility] Comment on above: Performed By: #### C DP, CMPX, CRP, SED, GLYHGB ####[address] [address] Anion gap 13 mmol/L Normal 9-17 [facility] Comment on above: Performed By: #### C DP, CMPX, CRP, SED, GLYHGB ####[address] [address] Aspartate aminotransferase (AST) 9 U/L Normal <40 [facility] Comment on above: Performed By: #### C DP, CMPX, CRP, SED, GLYHGB ####[address] [address] Bilirubin Ql (U) 0.26 mg/dL Low 0.3-1.2 [facility] Comment on above: Performed By: #### C DP, CMPX, CRP, SED, GLYHGB ####[address] [address] Calcium 8.4 mg/dL Low 8.6-10.4 [facility] Comment on above: Performed By: #### C DP, CMPX, CRP, SED, GLYHGB ####[address] [address] Chloride 99 mmol/L Normal 98-107 [facility] Comment on above: Performed By: #### C DP, CMPX, CRP, SED, GLYHGB ####[address] [address] CO2 21 mmol/L Normal 20-31 [facility] Comment on above: Performed By: #### C DP, CMPX, CRP, SED, GLYHGB ####[address] [address] Creatinine 1.13 mg/dL Normal 0.70-1.20 [facility] Comment on above: Performed By: #### C DP, CMPX, CRP, SED, GLYHGB ####[address] [address] eGFR (non-black) mL/min/{1.73_m2} Normal >60 [facility] Comment on above: Performed By: #### C DP, CMPX, CRP, SED, GLYHGB ####[address] [place] [address] Glucose mass conc 267 mg/dL High 70-99 [facility] Comment on above: Performed By: #### C DP, CMPX, CRP, SED, GLYHGB ####[address] [place] [address] Potassium molar conc 4.3 mmol/L Normal 3.7-5.3 [facility] Comment on above: Performed By: #### C DP, CMPX, CRP, SED, GLYHGB ####[address] [address] Protein 7.0 g/dL Normal 6.4-8.3 [facility] Comment on above: Performed By: #### C DP, CMPX, CRP, SED, GLYHGB ####[address] [address] Sodium 133 mmol/L Low 135-144 [facility] Comment on above: Performed By: #### C DP, CMPX, CRP, SED, GLYHGB ####[address] [address] Urea nitrogen 22 mg/dL High 6-20 [facility] Comment on above: Performed By: #### C DP, CMPX, CRP, SED, GLYHGB ####[address] [address] BUN/CRE Ratio NOT REPORTED Normal 9-20 [facility] Comment on above: Performed By: #### C DP, CMPX, CRP, SED, GLYHGB ####[address] [address] Staging: NOT REPORTED Normal [facility] Comment on above: Performed By: #### C DP, CMPX, CRP, SED, GLYHGB ####[address] [address] Consulton 04-09-2017 HIM IP Note OR Pneumatic Tube Fitter Normal [facility] HIM IP Note OR Pneumatic Tube Fitter Normal [facility] HIM IP Note OR Pneumatic Tube Fitter Normal [facility] Flu A/B Ag Detectionon 04-09 Flu A/B Ag Detection Specimen Descriptio n .NASOPHARYNGEAL SWABSpecial Requests NOT REPORTEDDirect Exam PRESUMPTIVE NEGATIVE for Influenza A + B antigens. PCR testing to confirm this result is available upon request. Specimen will be saved in the laboratory for 7 days. Please call [phone] if PCR testing is indicated. Report Status FINAL 04/09/2017 Normal [facility] Comment on above: Performed By: #### C DP, CMPX, CRP, SED, GLYHGB ####[facility] [address] [place] [address] History and Physicalon 04-09 [facility] IP Note OR Pneumatic Tube Fitter Normal [facility] MRI FOOT RIGHT W WO CONTRAST on [...] suspected despite a lack of definitive precontrast [id number] changes.Large ulcer overlying the lateral malleolus with underlying osteomyelitis.Interpreted by:SAMMI Tellezigned by:Jesusita Mock MD04/09/17inal result Normal [facility] Op Noteon 04-09-2017 HIM IP Note OR Pneumatic Tube Fitter Normal [facility] Plan of Careon 04-09-2017 HIM IP Note OR Pneumatic Tube Fitter Normal [facility] HIM IP Note OR Pneumatic Tube Fitter Normal [facility] Progress Noteon 04-09-2017 HIM IP Note OR Pneumatic Tube Fitter Normal [facility] HIM IP Note OR Pneumatic Tube Fitter Normal [facility] HIM IP Note OR Pneumatic Tube Fitter Normal [facility] RSV Ag Detectionon 8 RSV Ag Detection Specimen Description .NASOPHARYNGEAL SWABSpecial Requests NOT REPORTEDDirect Exam Presumptive negative for the presence of RSV antigen. PCR testing to confirm this result is available upon request. Specimen will be saved in the laboratory for 7 days. Please call [phone] if PCR testing is indicated. Report Status FINAL 04/09/2017 Normal [facility] Comment on above: Performed By: #### C DP, CMPX, CRP, SED, GLYHGB ####[facility] [place] [address] Sedimentation Rateon 018 Sedimentation Rate 80 mm High 0-10 [facility] Comment on above: Result Comment: [facility] [address] [place] [address] Performed By: #### C DP, CMPX, CRP, SED, GLYHGB ####[facility] HospitalSealPak InnovationsJhwiie[address] [place] [address] XR FOOT RIGHT STANDARDon XR FOOT RIGHT [...] by:SAMMI Tellezigned by:Jesusita Mock MD04/09/17inal result Normal [facility] Vital Signs Date Time Vital Sign Value Performing Clinician Facility 10-02-2024 13:45-0400 Diastolic blood pressure 63 mm[Hg] Fidel Abbott MD Work Phone: [facility] 10-02-2024 13:45-0400 Heart rate 55 /min Fidel Abbott MD Work Phone: [facility] 10-02-2024 13:45-0400 Respiratory rate 16 /min Fidel Abbott MD Work Phone: [facility] 10-02-2024 13:45-0400 SaO2% (BldA) [Mass fraction] 97 % Fidel Abbott MD Work Phone: [facility] 10-02-2024 13:45-0400 Systolic blood pressure 108 mm[Hg] Fidel Abbott MD Work Phone: [facility] 10-02-2024 13:00-0400 Inhaled oxygen flow rate 6 L/min Fidel Abbott MD Work Phone: [facility] 10-02-2024 10:58-0400 Body height 180.34 cm Fidel Abbott MD Work Phone: [facility] 10-02-2024 10:58-0400 Body temperature 98.4 [degF] Fidel Abbott MD Work Phone: [facility] 10-02-2024 10:58-0400 Body weight 102.05 kg Fidel Abbott MD Work Phone: [facility] 08-30-2024 12:17-0400 Body temperature 96.7 [degF] Fidel Abbott MD Work Phone: [facility] 08-30-2024 12:17-0400 Diastolic blood pressure 42 mm[Hg] Fidel Abbott MD Work Phone: [facility] 08-30-2024 12:17-0400 Heart rate 56 /min Fidel Abbott MD Work Phone: [facility] 08-30-2024 12:17-0400 SaO2% (BldA) [Mass fraction] 97 % Fidel Abbott MD Work Phone: [facility] 08-30-2024 12:17-0400 Systolic blood pressure 98 mm[Hg] Fidel Abbott MD Work Phone: [facility] 08-15-2024 11:19-0400 Body height 180.34 cm Fidel Abbott MD Work Phone: [facility] 08-15-2024 11:19-0400 Body mass index (BMI) [Ratio] 31.4 kg/m2 Fidel Abbott MD Work Phone: [facility] 08-15-2024 11:19-0400 Body weight 102.05 kg Fidel Abbott MD Work Phone: [facility] 08-15-2024 10:28-0400 Body temperature 98.1 [degF] Fidel Abbott MD Work Phone: [facility] 08-15-2024 10:28-0400 Diastolic blood pressure 70 mm[Hg] Fidel Abbott MD Work Phone: [facility] 08-15-2024 10:28-0400 Heart rate 71 /min Fidel Abbott MD Work Phone: [facility] 08-15-2024 10:28-0400 Respiratory rate 16 /min Fidel Abbott MD Work Phone: [facility] 08-15-2024 10:28-0400 Systolic blood pressure 134 mm[Hg] Fidel Abbott MD Work Phone: [facility] 07-31-2024 10:49-0400 Body height 180.3 cm Fidel Abbott MD Work Phone: [facility] 07-31-2024 10:49-0400 Body temperature 97.5 [degF] Fidel Abbott MD Work Phone: [facility] 07-31-2024 10:49-0400 Diastolic blood pressure 70 mm[Hg] Fidel Abbott MD Work Phone: [facility] 07-31-2024 10:49-0400 Heart rate 57 /min Fidel Abbott MD Work Phone: [facility] 07-31-2024 10:49-0400 Respiratory rate 18 /min Fidel Abbott MD Work Phone: [facility] 07-31-2024 10:49-0400 SaO2% (BldA) [Mass fraction] 98 % Fidel Abbott MD Work Phone: [facility] 07-31-2024 10:49-0400 Systolic blood pressure 142 mm[Hg] Fidel Abbott MD Work Phone: [facility] 03-14-2024 11:23-0500 Body height 180.34 cm Fidel Abobtt MD Work Phone: [facility] 03-14-2024 11:23-0500 Body mass index (BMI) [Ratio] 31.4 kg/m2 Fidel Abbott MD Work Phone: [facility] 03-14-2024 11:23-0500 Body weight 102.05 kg Fidel Abbott MD Work Phone: [facility] 03-14-2024 10:50-0500 Body temperature 98.2 [degF] Fidel Abbott MD Work Phone: [facility] 03-14-2024 10:50-0500 Diastolic blood pressure 67 mm[Hg] Fidel Abbott MD Work Phone: [facility] 03-14-2024 10:50-0500 Heart rate 61 /min Fidel Abbott MD Work Phone: [facility] 03-14-2024 10:50-0500 Respiratory rate 18 /min Fidel Abbott MD Work Phone: [facility] 03-14-2024 10:50-0500 Systolic blood pressure 128 mm[Hg] Fidel Abbott MD Work Phone: [facility] 02-08-2024 11:44-0500 Body height 180.34 cm Fidel Abbott MD Work Phone: [facility] 02-08-2024 11:44-0500 Body mass index (BMI) [Ratio] 31.4 kg/m2 Fidel Abbott MD Work Phone: [facility] 02-08-2024 11:44-0500 Body weight 102.05 kg Fidel Abbott MD Work Phone: [facility] 02-08-2024 10:51-0500 Body temperature 98.1 [degF] Fidel Abbott MD Work Phone: [facility] 02-08-2024 10:51-0500 Diastolic blood pressure 66 mm[Hg] Fidel Abbott MD Work Phone: [facility] 02-08-2024 10:51-0500 Heart rate 64 /min Fidel Abbott MD Work Phone: [facility] 02-08-2024 10:51-0500 Respiratory rate 18 /min Fidel Abbott MD Work Phone: [facility] 02-08-2024 10:51-0500 Systolic blood pressure 125 mm[Hg] Fidel Abbott MD Work Phone: [facility] 01-20-2024 11:52-0400 Body height 180.3 cm [...] Work Phone: [facility] 11-18-2023 13:47-0400 Body height 180.3 cm Fidel Abbott MD Work Phone: [facility] 11-18-2023 13:47-0400 Body temperature 97.5 [degF] Fidel Abbott MD Work Phone: [facility] 11-18-2023 13:47-0400 Diastolic blood pressure 70 mm[Hg] Fidel Abbott MD Work Phone: [facility] 11-18-2023 13:47-0400 Heart rate 60 /min Fidel Abbott MD Work Phone: [facility] 11-18-2023 13:47-0400 Respiratory rate 18 /min Fidel Abbott MD Work Phone: [facility] 11-18-2023 13:47-0400 SaO2% (BldA) [Mass fraction] 97 % Fidel Abbott MD Work Phone: [facility] 11-18-2023 13:47-0400 Systolic blood pressure 160 mm[Hg] Fidel Abbott MD Work Phone: [facility] 06-04-2023 13:27-0500 Diastolic blood pressure 58 mm[Hg] MD Fidel Abbott Work Phone: [facility] 06-04-2023 13:27-0500 Heart rate 60 /min MD Fidel Abbott Work Phone: [facility] 06-04-2023 13:27-0500 Respiratory rate 12 /min MD Fidel Abbott Work Phone: [facility] 06-04-2023 13:27-0500 SaO2% (BldA) [Mass fraction] 98 % MD Fidel Abbott Work Phone: [facility] 06-04-2023 13:27-0500 Systolic blood pressure 135 mm[Hg] MD Fidel Abbott Work Phone: [facility] 06-04-2023 10:49-0500 Body height 180.34 cm MD Fidel Abbott Work Phone: [facility] 06-04-2023 10:49-0500 Body temperature 98 [degF] MD Fidel Abbott Work Phone: [facility] 06-04-2023 10:49-0500 Body weight 114.3 kg MD Fidel Abbott Work Phone: [facility] 05-06-2023 10:40-0500 Body height 177.8 cm Jonathan Bah DPM Work Phone: [facility] 05-06-2023 10:40-0500 Body mass index (BMI) [Ratio] 35.87 kg/m2 Jonathan Bah DPM Work Phone: [facility] 05-06-2023 10:40-0500 Body weight 113.4 kg Jonathan Bah DPM Work Phone: [facility] 05-06-2023 10:40-0500 Diastolic blood pressure 80 mm[Hg] Jonathan Bah DPM Work Phone: [facility] 05-06-2023 10:40-0500 Heart rate 79 /min Jonathan Bah DPM Work Phone: [facility] 05-06-2023 10:40-0500 Systolic blood pressure 133 mm[Hg] Jonathan Bah DPM Work Phone: [facility] 05-04-2023 13:06-0500 Body mass index (BMI) [Ratio] 34.8 kg/m2 MD Fidel Abbott Work Phone: [facility] 05-04-2023 12:48-0500 Body height 180.34 cm MD Fidel Abbott Work Phone: [facility] 05-04-2023 12:48-0500 Body weight 113.39 kg MD Fidel Abbott Work Phone: [facility] 05-04-2023 11:25-0500 Body temperature 97.3 [degF] MD Fidel Abbott Work Phone: [facility] 05-04-2023 11:25-0500 Diastolic blood pressure 78 mm[Hg] MD Fidel Abbott Work Phone: [facility] 05-04-2023 11:25-0500 Heart rate 64 /min MD Fidel Abbott Work Phone: [facility] 05-04-2023 11:25-0500 Respiratory rate 18 /min MD Fidel Abbott Work Phone: [facility] 05-04-2023 11:25-0500 Systolic blood pressure 177 mm[Hg] MD Fidel Abbott Work Phone: [facility] 11-09-2022 13:10-0400 Blood Pressure Location Jovanny VILLA [facility] 11-09-2022 13:10-0400 Diastolic blood pressure 72 mm[Hg] Jovanny VILLA [facility] 11-09-2022 13:10-0400 Heart rate 78 /min Jovanny VILLA [facility] 11-09-2022 13:10-0400 Systolic blood pressure 148 mm[Hg] Jovanny VILLA [facility] 06-26-2022 14:00-0400 Body temperature 97.81 [degF] Eli Pimentel MD Work Phone: [facility] [employer] [facility] 06-26-2022 14:00-0400 Diastolic blood pressure 62 mm[Hg] Eli Pimentel MD Work Phone: [facility] [employer] [facility] 06-26-2022 14:00-0400 Heart rate 70 /min Eli Pimentel MD Work Phone: [facility] 06-26-2022 14:00-0400 Respiratory rate 18 /min Eli Pimentel MD Work Phone: [employer] 06-26-2022 14:00-0400 SaO2% (BldA) [Mass fraction] 95 % Eli Pimentel MD Work Phone: [employer] 06-26-2022 14:00-0400 Systolic blood pressure 144 mm[Hg] Eli Pimentel MD Work Phone: [facility] [employer] 06-26-2022 05:30-0400 Body mass index (BMI) [Ratio] 34.28 kg/m2 Eli Pimentel MD Work Phone: [facility] 06-26-2022 05:30-0400 Body weight 111.49 kg Eli Pimentel MD Work Phone: [facility] 06-25-2022 04:54-0400 Body height 180.3 cm Eli Pimentel MD Work Phone: [facility] 06-02-2022 12:14-0500 Body height 172.72 cm MD Fidel Abbott Work Phone: [facility] 06-02-2022 12:14-0500 Body mass index (BMI) [Ratio] 41 kg/m2 MD Fidel Abbott Work Phone: [facility] 06-02-2022 12:14-0500 Body weight 122.46 kg MD Fidel Abbott Work Phone: [facility] 06-02-2022 09:52-0500 Body temperature 97 [degF] MD Fidel Abbott Work Phone: [facility] 06-02-2022 09:52-0500 Diastolic blood pressure 73 mm[Hg] MD Fidel Abbott Work Phone: [facility] 06-02-2022 09:52-0500 Heart rate 76 /min MD Fidel Abbott Work Phone: [facility] 06-02-2022 09:52-0500 Systolic blood pressure 155 mm[Hg] MD Fidel Abbott Work Phone: [facility] 03-03-2022 12:06-0500 Body height 180.34 cm MD Fidel Abbott Work Phone: [facility] 03-03-2022 12:06-0500 Body mass index (BMI) [Ratio] 34.8 kg/m2 MD Fidel Abbott Work Phone: [facility] 03-03-2022 12:06-0500 Body weight 113.39 kg MD Fidel Abbott Work Phone: [facility] 03-03-2022 11:37-0500 Body temperature 97.7 [degF] MD Fidel Abbott Work Phone: [facility] 03-03-2022 11:37-0500 Diastolic blood pressure 56 mm[Hg] MD Fidel Abbott Work Phone: [facility] 03-03-2022 11:37-0500 Heart rate 68 /min MD Fidel Abbott Work Phone: [facility] 03-03-2022 11:37-0500 Respiratory rate 18 /min MD Fidel Abbott Work Phone: [facility] 03-03-2022 11:37-0500 Systolic blood pressure 122 mm[Hg] MD Fidel Abbott Work Phone: [facility] Encounters Encounter Date Encounter Type Care Provider Facility Start: 11-22-2024 End: 11-22-2024 Refill Fidel Abbott MD [facility] Comment on above: Primary hypertension ; Benign hypertension ; Type 2 diabetes mellitus with hyperglycemia, without long-term current use of insulin (HCC); Dyslipidemia Start: 11-01-2024 End: 11-02-2024 Refill Fidel Abbott MD [facility] Comment on above: Type 2 diabetes ez itus with hyperglycemia, without long-term current use of insulin (HCC) Start: 10-10-2024 ambulatory Fidel Abbott Facility:[facility] Start: 10-02-2024 End: 10-03-2024 External Result Encounter Cathy Brar MD Work Phone: [facility] External Department Unsolicited Start: 10-02-2024 End: 10-03-2024 External Result Encounter Cathy Edwards MD Work Phone: [facility] External Department Unsolicited Start: 10-02-2024 End: 10-02-2024 Admission to same day surgery center Cathy Brar MD [facility] [place] Start: 10-02-2024 End: 10-02-2024 ambulatory Fidel Abbott MD Work Phone: [facility] Work Phone: Start: 09-26-2024 End: 09-26-2024 [...] Phone: [facility] Work Phone: Start: 08-30-2024 End: 08-30-2024 ambulatory Fidel Abbott MD Work Phone: [facility] Work Phone: Start: 08-15-2024 Registered Recurring Fidel dubose MD Work Phone: [facility] [place] Work Phone: Start: 08-10-2024 End: 08-10-2024 Clinisync Result Encounter Generic External Data Provider [facility] External Department Unsolicited Start: 08-10-2024 End: 08-10-2024 Clinisync Result Encounter Generic External Data Provider [facility] External Department Unsolicited Start: 07-31-2024 End: 07-31-2024 Bamboo flowsheet Fidel Abbott MD Work Phone: [facility] Start: 07-31-2024 End: 07-31-2024 Bamboo flowsheet Fidel Abbott MD Work Phone: [facility] Start: 07-31-2024 End: 07-31-2024 Office outpatient visit 25 minutes Fidel Abbott MD Work Phone: [facility] Comment on above: Type 2 diabetes ez itus with hyperglycemia, without long-term current use of insulin ([facility]) (Primary Dx); Benign hypertension ([facility]); Major depressive disorder, recurrent episode, mild (HCC) ([facility]); Incontinence overflow, urine; Chronic superficial 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; Urticaria; Pruritus; Annual physical exam; Chronic kidney disease, stage 3a (HCC) ([facility]); Class 2 severe obesity due to excess calories with serious comorbidity and body mass index (BMI) of 36.0 to 36.9 in adult ([facility]); Type 2 diabetes mellitus with other specified complication; Hyperlipidemia, unspecified (CMS/HCC); Pressure ulcer of right heel, unstageable ([facility]); Type 2 diabetes mellitus with other skin ulcer (CODE); Paraplegia, unspecified; Diabetes mellitus due to underlying condition with diabetic polyneuropathy ([facility]) Start: 07-31-2024 End: 07-31-2024 Patient encounter procedure Fidel Abbott MD Work Phone: [facility] Start: 07-31-2024 End: 07-31-2024 ambulatory FIDEL ABBOTT Not Available Start: 05-30-2024 End: 05-30-2024 Clinisync Result Encounter Generic External Data Provider [facility] External Department Unsolicited Start: 05-30-2024 End: 05-30-2024 Clinisync Result Encounter Generic External Data Provider [facility] External Department Unsolicited Start: 05-02-2024 ambulatory ANGIE Acuna ty:CHLOE Walls Start: 04-17-2024 End: 04-17-2024 Telephone encounter Scanning Provider External [facility] Start: 04-14-2024 End: 04-14-2024 Telephone encounter Mary Conner CMA [facility] Start: 04-06-2024 End: 04-06-2024 Telephone encounter Mary Conner CMA [facility] Start: 03-14-2024 End: 03-14-2024 ambulatory Fidel Abbott MD Work Phone: [facility] Work Phone: Start: 03-14-2024 End: 03-14-2024 Discharged Recurring Fidel Abbott MD Work Phone: [facility] [place] Work Phone: Start: 03-13-2024 End: 03-13-2024 Refill Fidel Abbott MD Work Phone: [facility] Comment on above: Pruritus Start: 03-10-2024 Non-patient / Non-visit Fidel campbell MD Work Phone: [facility] Work Phone: Start: 03-10-2024 End: [...] Registered Recurring Fidel dubose MD Work Phone: [facility] [place] Work Phone: Start: 02-08-2024 End: 02-08-2024 Patient encounter procedure Fidel Abbott MD Work Phone: [facility] [place] Work Phone: Start: 02-08-2024 End: 02-08-2024 ambulatory Fidel Abbott MD Work Phone: [facility] Work Phone: Start: 01-20-2024 [...] Orders Only Iraj Valdivia MD Work Phone: [facility] Comment on above: Stage 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 (CMS-HCC) (Primary Dx) Start: 01-12-2024 End: 01-12-2024 Telephone encounter Scanning Provider External [facility] Start: 12-02-2023 End: 12-02-2023 Clinisync Result [...] encounter procedure Jovanny VILLA [facility] Start: 10-11-2023 End: 10-11-2023 ambulatory Khadar [facility] Start: 07-08-2023 End: 07-08-2023 ambulatory MD Fidel Abbott Work Phone: [facility] Work Phone: Start: 07-08-2023 End: 07-08-2023 Departed Referred MD Fidel Abbott Work Phone: [facility] Start: 06-04-2023 End: 06-04-2023 Admission to same day surgery center MD Fidel Abbott Work Phone: [facility] [place] Start: 05-13-2023 Telephone encounter Sandhya Grijalva [facility] [...] underlying condition with diabetic polyneuropathy, unspecified whether half-way insulin use (CMS/HCC); Acute complete paraplegia (CMS/HCC); Acute osteomyelitis of left fibula (CMS/HCC); Foot ulcer, right, with fat layer exposed (CMS/HCC); Venous insufficiency Start: 05-04-2023 End: 05-04-2023 ambulatory MD Fidel Abbott Work Phone: [facility] Work Phone: Start: 05-04-2023 End: 05-04-2023 Discharged Recurring MD Fidel Abbott Work Phone: [facility] [place] Work Phone: Start: 11-09-2022 End: 11-09-2022 Patient encounter procedure Jovanny VILLA [facility] Start: 09-25-2022 End: 09-26-2022 ambulatory FIDEL ABBOTT [facility] Start: 09-18-2022 End: 09-21-2022 ambulatory ASHLEEKAM ERWIN [facility] Start: 09-18-2022 End: 09-20-2022 Subsequent hospital visit by physician Francisca Ultrasound Room 2 At [facility] Ultrasound Comment on above: Cauda equina syndrom e (HCC); Neurogenic bladder; Urinary retention; Urinary incontinence without sensory awareness Start: 2022 End: [address] [facility] Start: 07-02-2022 End: 07-03-2022 ambulatory SHELLY Geoff [facility] Start: 07-02-2022 End: 07-02-2022 Subsequent hospital visit by physician Fidel Abbott MD Work Phone: [facility] Laboratory Comment on above: Acute kidney injury (HCC); Iron deficiency anemia, unspecified iron deficiency anemia type Start: 06-22-2022 End: 06-26-2022 Evaluation and management of inpatient [facility] Start: 06-22-2022 End: 06-26-2022 Evaluation and management of inpatient Eli Pimentel MD Work Phone[facility] Comment on above: Acute kidney injury (HCC) (Primary Dx); Hyperkalemia; Iron deficiency anemia, unspecified iron deficiency anemia type Start: 06-22-2022 End: 06-22-[address] [facility] Start: 06-22-2022 End: 06-22-2022 Subsequent hospital visit by physician Fidel Abbott MD Work Phone: [facility] EKG Comment on above: Neurogenic bladder Start: 06-02-2022 End: 06-02-2022 ambulatory MD Fidel Abbott Work Phone: [facility] Work Phone: Start: 06-02-2022 End: 06-02-2022 Discharged Recurring MD Fidel Abbott Work Phone: [facility] [place] Work Phone: Start: 03-14-2022 End: 03-15-[address] CATHY BRAR Facility:[facility] Start: 03-03-2022 End: 03-03-2022 ambulatory MD Fidel Abbott Work Phone: [facility] Work Phone: Start: 03-03-2022 End: 03-03-2022 Discharged Recurring MD Fidel Abbott Work Phone: [facility] [place] Work Phone: Start: 02-26-2022 End: 02-27-[address] CATHY BRAR Facility:[facility] Start: 05-30-2021 End: 05-31-[address] FIDEL ABBOTT Facility:[facility] Start: 04-09-2017 End: 04-13-2017 Evaluation and management of inpatient [facility] Procedures Date Procedure Procedure Detail Performing [...] retroperitoneal real time w/image complete Ashlee Erwin [employer] Work Phone: Start: 2022 Optical urethrotomy Jovanny VILLA Start: 07-02-2022 Basic metabolic panel calcium total Hoda jose Mondragon [employer] Work Phone: Start: 06-26-2022 End: 06-26-2022 COLONOSCOPY [...] actv qual feces 1 deter Shelly GoldersKipTripp [employer] Work Phone: Start: 06-25-2022 Cul bact xcpt [...] of packed red blood cells Shelly GoldersKipTripp [employer] Work Phone: Start: 06-24-2022 Echo tthrc r-t 2d w/wom-mode compl spec&colr d Shelly GoldersKipTripp [employer] Work Phone: Start: 06-24-2022 Blood typing serologic abo Shelly GoldersShea [employer] Work Phone: Start: 06-24-2022 GLUCOSE, WHOLE BLOOD Matias Garcia MD Work Phone: Start: 06-24-2022 End: 06-24-2022 Prothrombin time Shelly Mondragon [employer] Work Phone: Start: 06-24-2022 VITAMIN B12 & FOLATE Shelly GoldersShea [employer] Work Phone: Start: 06-24-2022 End: 06-25-2022 Rhythm [...] ankle complete minimum 3 views Shelly Mondragon [employer] Work Phone: Start: 06-23-2022 Lipid panel Zoila [...] WEBBER Start: 04-09-2017 NOTIFY PHYSICIAN (SPECIFY) MICHAELA ONTVIEROS Start: 04-09-2017 REASON FOR NO MECHANICAL VTE [...] for malignant neoplasm of colon [facility] Start: 02-01-2025 End: 02-01-2025 Patient encounter procedure 02/01/2025 10:30 AM EST Office Visit [facility] [address] [place] [address] Fidel Abbott MD [address] [place] [address] [facility] Start: 11-27-2024 Influenza vaccination [facility] Start: 10-10-2024 Adult BMI Screening Adult BMI Screening [facility] Start: 10-10-2024 Tobacco Screening Tobacco Screening [facility] Start: 10-02-2024 Aerobic Culture Aerobic Culture [facility] Start: 10-02-2024 Anaerobic Culture Anaerobic Culture [facility] Start: 10-02-2024 Microscopic observation [Identifier] in Unspecified specimen by Gram stain [facility] Start: 10-02-2024 End: 10-02-2024 [facility] Start: 08-30-2024 Ankle brachial pressure index [facility] Start: 07-31-2024 End: 07-31-2025 Basic metabolic 1998 panel - Serum or Plasma Basic metabolic panel Lab Routine Annual physical exam Expected: 07/31/2024 (Approximate), Expires: 07/31/2025 [facility] Comment on above: Expected: 07/31/2024 (Approximate), Expi res: 07/31/2025 Start: 07-31-2024 End: 07-31-2025 CBC W Auto Differential panel - Blood CBC and differential Lab Routine Annual physical exam Expected: 07/31/2024 (Approximate), Expires: 07/31/2025 [facility] Comment on above: Expected: 07/31/2024 (Approximate), Expi res: 07/31/2025 Start: 07-31-2024 End: 07-31-2025 Hemoglobin A1c/Hemoglobin.total in Blood Hemoglobin A1c Lab Routine Annual physical exam Expected: 07/31/2024 (Approximate), Expires: 07/31/2025 [facility] Comment on above: Expected: 07/31/2024 (Approximate), Expi res: 07/31/2025 Start: 07-31-2024 End: 07-31-2025 Hepatic function 2000 panel - Serum or Plasma Hepatic function panel Lab Routine Annual physical exam Expected: 07/31/2024 (Approximate), Expires: 07/31/2025 [facility] Comment on above: Expected: 07/31/2024 (Approximate), Expi res: 07/31/2025 Start: 07-31-2024 End: 07-31-2025 Lipid 1996 panel - Serum or Plasma Lipid panel Lab Routine Annual physical exam Expected: 07/31/2024 (Approximate), Expires: 07/31/2025 [facility] Comment on above: Expected: 07/31/2024 (Approximate), Expi res: 07/31/2025 Start: 07-31-2024 End: 07-31-2025 Microalbumin/Creatinine panel in random Urine Microalbumin / creatinine, urine ratio Lab Routine Type 2 diabetes mellitus with hyperglycemia, without long-term current use of insulin ([facility]) Expected: 07/31/2024 (Approximate), Expires: 07/31/2025 [facility] Work Phone: Comment on above: Expected: [...] [facility] [address] [place] [phone] Fidel Abbott MD [address] [place] [phone] Arrived [facility] Comment on above: Arrived Start: 05-22-2024 End: 05-22-2024 Patient encounter procedure 05/22/2024 1:15 PM EST Office Visit [facility] [address] [place] [phone] Fidel Abbott MD [address] [place] [phone] [facility] Start: 04-20-2024 End: 04-20-2024 Patient encounter procedure 04/20/2024 1:30 PM EST Office Visit [facility] [address] [place] [phone] Iraj Valdivia MD [address] [place], [place] [phone] [facility] Start: 04-13-2024 End: 04-13-2024 Patient encounter procedure 04/13/2024 2:00 PM EST Office Visit N [facility] [address] [place] [phone] Iraj Valdivia MD [address] [place] [address] [facility] Start: 01-20-2024 End: 01-20-2024 Patient encounter procedure 01/20/2024 11:45 AM EDT Office Visit [facility] [address] [place] [phone] Fidel Abbott MD [address] [place] [phone] Arrived [facility] Comment on above: Arrived Start: 11-28-2023 Influenza vaccination [facility] Start: 11-18-2023 End: 11-17-2024 Albumin, urine, random Albumin, urine, random Lab Routine Type 2 diabetes mellitus with hyperglycemia, without long-term current use of insulin ([facility]) Expected: 11/18/2023 (Approximate), Expires: 11/17/2024 [facility] Work Phone: Comment on above: Expected: 11/18/2023 (Approximate), Expi res: 11/17/2024 Start: 11-18-2023 End: 11-17-2024 Basic metabolic 1998 panel - Serum or Plasma Basic metabolic panel Lab Routine Encounter for long-term (current) use of medications Expected: 11/18/2023 (Approximate), Expires: 11/17/2024 [facility] Comment on above: Expected: 11/18/2023 (Approximate), Expi res: 11/17/2024 Start: 11-18-2023 End: 11-17-2024 CBC W Auto Differential panel - Blood CBC and differential Lab Routine Encounter for long-term (current) use of medications Expected: 11/18/2023 (Approximate), Expires: 11/17/2024 [facility] Comment on above: Expected: 11/18/2023 (Approximate), Expi res: 11/17/2024 Start: 11-18-2023 End: 11-17-2024 Hemoglobin A1c/Hemoglobin.total in Blood Hemoglobin A1c Lab Routine Type 2 diabetes mellitus with hyperglycemia, without long-term current use of insulin ([facility]) Expected: 11/18/2023 (Approximate), Expires: 11/17/2024 [facility] Comment on above: Expected: 11/18/2023 (Approximate), Expi res: 11/17/2024 Start: 11-18-2023 End: 11-17-2024 Hepatic function 2000 panel - Serum or Plasma Hepatic function panel Lab Routine Encounter for long-term (current) use of medications Expected: 11/18/2023 (Approximate), Expires: 11/17/2024 [facility] Comment on above: Expected: 11/18/2023 (Approximate), Expi res: 11/17/2024 Start: 11-18-2023 End: 11-17-2024 Lipid 1996 panel - Serum or Plasma Lipid panel Lab Routine Type 2 diabetes mellitus with hyperglycemia, without long-term current use of insulin ([facility]) Expected: 11/18/2023 (Approximate), Expires: 11/17/2024 [facility] Comment on above: Expected: 11/18/2023 (Approximate), Expi res: 11/17/2024 Start: 10-18-2023 End: 10-18-2023 Patient encounter procedure 10/18/2023 10:00 AM EDT Office Visit [facility] [address] [place] [address] Fidel Abbott MD [address] [place] [address] [facility] Start: 09-19-2023 GFR test (Diabetes, CKD 3-4, OR last GFR 15-59) GFR test (Diabetes, CKD 3-4, OR last GFR 15-59) [facility] Start: 09-19-2023 Urine screening for protein Diabetes: Urine Protein Screening [facility] Start: 07-08-2023 Hemoglobin A1c measurement A1C test (Diabetic or Prediabetic) [facility] [employer] Start: 07-03-2023 GFR test (Diabetes, CKD 3-4, OR last GFR 15-59) GFR test (Diabetes, CKD 3-4, OR last GFR 15-59) [facility] Start: 06-27-2023 Screening for malignant neoplasm of colon [facility] [employer] Start: 06-26-2023 GFR test (Diabetes, CKD 3-4, OR last GFR 15-59) GFR test (Diabetes, CKD 3-4, OR last GFR 15-59) [facility] Start: 06-26-2023 Screening for malignant neoplasm of colon [facility] Start: 06-24-2023 Lipid panel Lipids [facility] [employer] Start: 06-23-2023 GFR test (Diabetes, CKD 3-4, OR last GFR 15-59) GFR test (Diabetes, CKD 3-4, OR last GFR 15-59) [facility] Start: 06-04-2023 [facility] Start: 05-20-2023 End: 05-20-2023 Patient encounter procedure 05/20/2023 3:10 PM EST Office Visit [facility] [address] [facility] [address] [place] [address] Jonathan Bah DPM [address] [address] [facility] Start: 05-06-2023 End: 05-06-2023 Patient encounter procedure 05/06/2023 10:20 AM EST Office Visit [facility] [address] [address] Jonathan Bah DPM [address] [address] [facility] Start: 10-27-2022 Influenza vaccination Flu vaccine (Season Ended) [facility] Start: 10-06-2022 Hemoglobin A1c measurement Diabetes: Hemoglobin A1C [facility] Start: 09-25-2022 End: 09-25-2022 Patient encounter procedure 09/25/2022 Office Visit [facility] UROLOGY [facility] Start: 07-08-2022 End: 07-08-2022 Patient encounter procedure 07/08/2022 Office Visit [facility] Start: 2022 End: 2022 Admission to same day surgery center 2022 Surgery IP Unit Angeles Nagy MD [address], [address] [place], [place] [id number] CYSTOSCOPY TRANSURETHROTOMY- DVIU WITH POSS TRANSURETHRAL RESECTION OF BLADDER TUMOR [facility] Comment on above: CYSTOSCOPY TRANSURETHROTOMY- DVIU WITH P OSS TRANSURETHRAL RESECTION OF BLADDER TUMOR Start: 2022 End: 2022 Cystourethroscopy w/internal urethrotomy male CYSTOSCOPY TRANSURETHROTOMY Cauda equina syndrome (HCC) 2022 8:[address] [facility] Start: 2022 Subsequent hospital visit by physician 2022 Hospital Encounter IP Unit Angeles Nagy MD [address], [address] [place], [place] [id number] [facility] Start: 07-01-2022 End: 06-27-2023 Basic metabolic 2000 panel - Serum or Plasma Basic Metabolic Panel Lab Routine Acute kidney injury (HCC) Expected: 07/01/2022, Expires: 06/27/2023 [employer] [facility] [employer] Work Phone: Comment on above: Expected: 07/01/2022, Expires: 4 Start: 07-01-2022 End: 06-27-2023 CBC W Auto Differential panel - Blood CBC with Auto Differential Lab Routine Acute kidney injury (HCC) Iron deficiency anemia, unspecified iron deficiency anemia type Expected: 07/01/2022, Expires: 06/27/2023 [employer] Phone: Comment on above: Expected: 07/01/2022, Expires: Start: 06-22-2022 Annual Wellness Visit (AWV) Annual Wellness Visit (AWV) [facility] Start: 10-27-2021 Influenza vaccination Flu vaccine (#1) [facility] Start: 04-09-2018 Diabetic foot examination Diabetic foot exam [facility] Start: 04-09-2018 Hemoglobin A1c measurement A1C test (Diabetic or Prediabetic) [facility] Start: 04-25-2016 Lipid panel Lipids [facility] Start: 04-24-2016 Urine screening for protein [facility] Start: 07-08-2011 Administration of varicella zoster vaccine Zoster (Shingles) Vaccine (1 of 2) [facility] Start: 07-08-2011 Shingles vaccine (1 of 2) Shingles vaccine (1 of 2) [facility] Start: 2006 Screening for malignant neoplasm of colon [facility] Start: 1980 DTaP,Tdap and Td Vaccines (1 - Tdap) DTaP,Tdap and Td Vaccines (1 - Tdap) [facility] Start: 1980 DTaP/Tdap/Td vaccine (1 - Tdap) DTaP/Tdap/Td vaccine (1 - Tdap) [facility] Start: 1980 Urine screening for protein Diabetes: Urine Protein Screening [facility] Start: 07-08-1979 Adult BMI Follow Up Plan Adult BMI Follow Up Plan [facility] Start: 07-08-1979 Glaucoma screening Diabetic retinal exam [facility] Start: 07-08-1979 Hepatitis C screening Hepatitis C screen [facility] Start: 1976 HIV screening HIV screen [facility] Start: 1973 Depression Monitoring Depression Monitoring [facility] Start: 1973 Depression Screening Depression Screening [facility] Start: 07-08-1971 Glaucoma screening Diabetes: Retinopathy Screening [facility] Start: 07-08-1967 Pneumococcal 0-64 years Vaccine (1 - PCV) Pneumococcal 0-64 years Vaccine (1 - PCV) [facility] Start: 01-06-1962 COVID-19 Vaccine (#1) COVID-19 Vaccine (#1) [facility] Start: 1961 Screening for malignant neoplasm of colon [facility] AEROBIC CULTURE AEROBIC CULTURE Lab Routine 10/02/2024 12:38 PM EDT [facility] Work Phone: ANAEROBIC CULTURE ANAEROBIC CULT URE Lab Routine 10/02/2024 12:38 PM EDT [facility] Bacteria identified in Unspecified specimen by Aerobe culture [facility] Bacteria identified in Unspecified specimen by Anaerobe culture [facility] End: 01-16-2025 Basic metabolic 2000 panel - Serum or Plasma Basic Metabolic Panel Lab Routine Stage 3a chronic kidney disease ([facility]) 1 Occurrences starting 01/17/2024 until 01/16/2025 [facility]N [facility] Work Phone: Comment on above: 1 Occurrences starting 01/17/2024 until 01/16/2025 End: 01-16-2025 CBC panel - Blood by Automated count CBC without diff Lab Routine Stage 3a chronic kidney disease ([facility]) 1 Occurrences starting 01/17/2024 until 01/16/2025 [facility] Comment on above: 1 Occurrences starting 01/17/2024 until 01/16/2025 End: 06-27-2022 CBC W Auto Differential panel - Blood CBC auto differential Lab Routine Daily for 5 Days starting 06/23/2022 until 06/27/2022, 4 completed [employer] Work Phone: Comment on above: Daily for 5 Days starting 06/23/2022 unt il 06/27/2022, 4 completed Culture, Wound Aerob ic Only Culture, Wound Aerobic Only Microbiology [employer] Label Print 06/25/2022 12:20 PM EDT [employer] Work Phone: End: 06-25-2022 Hemoglobin and Hematocrit Hemoglobin and Hematocrit Lab Routine Post Transfusion Post Transfusion Post Transfustion until discontinued starting 06/24/2022, 1 completed [employer] Work Phone: Comment on above: Post Transfusion Post Transfusion Post T ransfustion until discontinued starting 06/24/2022, 1 completed End: 01-16-2025 Magnesium [Mass/volume] in Serum or Plasma Magnesium Lab Routine Stage 3a chronic kidney disease ([facility]-HCC) 1 Occurrences starting 01/17/2024 until 01/16/2025 [employer] Comment on above: 1 Occurrences starting 01/17/2024 until 01/16/2025 Oxygen therapy [[facility] Data Set] Initiate Oxygen Therapy Protocol Respiratory Care Routine Daily until discontinued starting 06/22/2022 [employer] Phone: Comment on above: Daily until discontinued starting 2022 End: 01-16-2025 Parathyroid Hormone, intact Parathyroid Hormone, intact Lab Routine Stage 3a chronic kidney disease ([facility]) 1 Occurrences starting 01/17/2024 until 01/16/2025 [facility] Comment on above: 1 Occurrences starting 01/17/2024 until 01/16/2025 Patient Education Know your Meds [facility] Work Phone: Patient referral [facility] Work Phone: End: 01-16-2025 Phosphate [Mass/volume] in Serum or Plasma Phosphorus Lab Routine Stage 3a chronic kidney disease ([facility]) 1 Occurrences starting 01/17/2024 until 01/16/2025 [facility] Comment on above: 1 Occurrences starting 01/17/2024 until 01/16/2025 End: 06-24-2022 PREPARE RBC (CROSSMATCH), 1 Units PREPARE RBC (CROSSMATCH), 1 Units Blood Bank Routine Once for 1 Occurrences starting 06/24/2022 until 06/24/2022 [employer] Phone: Comment on above: Once for 1 Occurrences starting 06/25/19 until 06/24/2022 End: 01-16-2025 Protein creat ratio Protein creat ratio Lab Routine Stage 3a chronic kidney disease [facility] 1 Occurrences starting 01/17/2024 until 01/16/2025 [employer] Comment on above: 1 Occurrences starting 01/17/2024 until 01/16/2025 End: 06-25-2022 Surgical Pathology Surgical Pathology Lab Routine One Time for 1 Occurrences starting 06/25/2022 until 06/25/2022 [employer] Phone: Comment on above: One Time for 1 Occurrences starting 05/29 until 06/25/2022 Surgical Pathology Surgical Path ology Lab Routine Hyperkalemia Release Upon Ordering for 1 Occurrences starting 06/26/2022 [employer] Phone: Comment on above: Release Upon Ordering for 1 Occurrences starting 06/26/2022 End: 06-25-2022 SURGICAL PATHOLOGY REPORT SURGICAL PATHOLOGY REPORT Lab Routine Once for 1 Occurrences starting 06/25/2022 until 06/25/2022 [employer] Work Phone: Comment on above: Once for 1 Occurrences starting 06/26/19 until 06/25/2022 End: 06-26-2022 SURGICAL PATHOLOGY REPORT SURGICAL PATHOLOGY REPORT Lab Routine Once for 1 Occurrences starting 06/26/2022 until 06/26/2022 [employer] Phone: Comment on above: Once for 1 Occurrences starting 06/27/19 until 06/26/2022 End: 01-16-2025 Urinalysis Urinalysis Lab Routine Stage 3a chronic kidney disease ([facility]) 1 Occurrences starting 01/17/2024 until 01/16/2025 [facility] Comment on above: 1 Occurrences starting 01/17/2024 until 01/16/2025 End: 01-16-2025 Vitamin D 25 hydroxy Vitamin D 25 hydroxy Lab Routine Stage 3a chronic kidney disease ([facility]) 1 Occurrences starting 01/17/2024 until 01/16/2025 [facility] [facility] Comment on above: 1 Occurrences starting 01/17/2024 until 01/16/2025 Immunizations Immunization Date Immunization Notes Care Provider [facility] 02-11-2023 influenza, injectabl e, quadrivalent, preservative free MD Fidel Abbott Work Phone: [facility] 02-11-2023 influenza virus vaccine, unspecified formulation Fidel Abbott MD Work Phone: [facility] 04-10-2017 influenza virus vaccine, unspecified formulation Jovanny VILLA [facility] Comment on above: Result Comment: 2022: VIS DATE: 11/02/2014 04-10-2017 influenza, injectabl e, quadrivalent, preservative free Fidel Abbott MD Work Phone: [facility] 01-28-2016 Influenza Vaccine, unspecified formulation Fidel Abbott MD Work Phone: [facility] 01-01-2015 influenza virus vaccine, unspecified formulation Jovanny VILLA [facility] 01-01-2015 influenza, seasonal, injectable MD Fidel Abbott Work Phone: [facility] 01-10-2014 influenza virus vaccine, unspecified formulation Jovanny VILLA [facility] Payers Date Payer Category Payer Self-pay [id number] 2022 [facility] Managed Care - PPO ANTHEM [id number] 2021 [facility] er [id number] 2021 Unknown BCBS BCBS xxxxxx [id number] 2021-Present [phone] [address] [place] [address] [id number]. [id number] 2015 Unknown [id number] 2006 Medicare [id number]. 1.13.693.2. [id number] 1961 Unknown [id number] 2.16.840.1.906880.3.579.2. 593 1961 Unknown [id number] 2.16.840.1.643706.3.579.2. 593 1961 Unknown [id number] 2.16.840.1.475963.3.579.2. 593 1961 Unknown [id number] 2.16.840.1.065539.3.579.2. 173 1961 Unknown [id number] 2.16.840.1.644062.3.579.2. 173 1961 Unknown [id number] 2.16.840.1.406917.3.579.2. 173 1961 Unknown [id number] 2.16.840.1.342546.3.579.2. 173 1961 Unknown [id number] 2.16.840.1.242638.3.579.2. 173 1961 Unknown [id number] 2.16.840.1.070017.3.579.2. 173 1961 Unknown [id number] 2.16.840.1.504503.3.579.2. 173 1961 Unknown [id number] 2.16.840.1.944195.3.579.2. 173 1961 Unknown [id number] 2.16.840.1.648147.3.579.2. 1286 1961 Unknown [id number] 2.16.840.1.458891.3.579.2. 1286 1961 Unknown [id number] 2.16.840.1.918311.3.579.2. 1259 1961 Unknown [id number] 2.16.840.1.024266.3.579.2. 1259 1961 Unknown [id number] 2.16.840.1.684904.3.579.2. 1259 1961 Unknown [id number] 2.16.840.1.145755.3.579.2. 727 1959 Medicare [id number] 1959 Unknown [id number] 1959 Unknown [id number] Unknown [id number] 2.16.840.1.525754.3.579.2. 531 Unknown [id number] 2.16840.1.832737.3.579.2. 531 Unknown [id number] 2.16840.1.258564.3.579.2. 531 Unknown [id number] 2.16840.1.628757.3.579.2. 531 Unknown [id number] 2.16840.1.600939.3.579.2. 531 Social History Date Type Detail Facility Start: 01-27-2022 End: 02-23-2023 Tobacco smoking status NHIS Never smoked tobacco (finding) [facility] Start: 1960 Sex Assigned At Male F [facility] Start: 06-22-2022 End: 02-23-2023 Tobacco use and exposure Smokeless tobacco non-user [employer]: Start: 06-22-2022 End: 07-14-2022 Alcohol intake Current non-drinker of alcohol (finding) [employer] Phone: Start: 1960 Sex Assigned At Not on file B ON [employer] Phone: Start: 06-12-2022 End: 06-22-2022 Exposure to SARS-CoV-2 (event) Not sure [facility] Start: 06-23-2022 History SDOH Alcohol Frequency 1 [employer] Phone: Start: 06-23-2022 History SDOH Alcohol Std Drinks 0 [employer] Phone: Tobacco smoking status Never [facility] Start: 04-29-2023 End: 10-17-2023 Sex Assigned At Male [facility] Start: 04-29-2023 End: 07-31-2024 Alcohol intake Lifetime non-drinker (finding) [facility] Start: 04-29-2023 End: 10-17-2023 History of Social function [facility] Start: 11-01-2014 End: 08-30-2024 Sex Male (finding) [facility] Do you belong to any clubs or organizations such as episcopal groups, unions, fraternal or athletic groups, or [...] 06-04-2023 Wound debridement Collagen wound matrix dressing ([id number] FDA Start: 06-04-2023 Wound debridement Collagen wound matrix dressing ()[id number] FDA Start: 06-04-2023 Wound debridement EPIFIX MESH [...] 06-04-2023 Amputation, toe Collagen wound matrix dressing ()[id number] FDA Start: 02-10-2023 Graft Subst Resorbable Mini [facility] [id number] Start: 12-25-2016 Comment on above: Description: tobramy icin recostituted with 10ml normal saline ref # [id number] exp 07/27/2018 lot # [id number] Goals Date Patient Goal Desired Activity /State Functional Status Date Assessment Result Facility 11-09-2022 Functional Status N/A [facility] Clinical Notes 07-29-2021 to 08-15-2024 Note Date [...] with complication acute August 30, 2024 11:16am [facility] Work Phone: 1(598) 807-320605-20-2025 Evaluation note* Diagnosis Onset Date Resolution Status [...] 1 0:28am Cauda equina spinal cord injury [facility] August 15, 2024 10:28am [facility] Work Phone: 1(984) 366-305705-20-2025 Evaluation note* Diagnosis Onset Date Resolution Status [...] 1 0:28am Cauda equina spinal cord injury [facility] August 15, 2024 10:28am Bilateral lower extremity edema acut e August 30, 2024 11:16am Open wound of both legs with complication acute August 30, 2024 1 1:16am Diabetes mellitus due to underlying condition with diabetic neuropathy, wit acute September 10:30am Pressure injury of left isch ium, stage 4 acute October 02, 2024 1 0:30am Cauda equina spinal cord injury [facility] October 02, 2024 10:30am [facility] Work Phone: 1(530) 470-482805-05-2025 History of Present illness Narrative* Fidel Abbott MD - 07/31/2024 11:20 AM EDTAssociated Problem(s): Class 2 severe obesity due to excess calories with serious comorbidity and body mass index (BMI) of 36.0 to 36.9 in adult (CMS/[facility]) Weight loss indicated. * Fidel [...] Lipid panel PSA TSH documented in this encounterUniversity [facility] [id number] Miscellaneous Notes* Telephone Encounter - Fatemeh Ant - 04/17/2024 1:56 PM EST Pt called to reschedule new pt appt due to lack of transportation. I informed him that we have no availability in [place] until [facility] July schedule opens up. He stated he will call back the first weekof April to reschedule. documented in [facility]-2025 Telephone encounter Note* Telephone Encounter - Fatemeh Ant - 04/17/2024 1:56 PM EST Pt called to reschedule new pt appt due to lack of transportation. I informed him that we have no availability in [place] until [facility] July schedule opens up. He stated he will call back the first weekof April to reschedule. [facility]01-17-2025 Miscellaneous Notes* Telephone Encounter - Mary Conner CMA - 04/14/2024 3:23 PM EST Left message for patient to call the office back to confirm upcoming appointment 04/20 at 1:[address] Valdivia in [place]. Also stated that patient needs to get labs done prior to upcoming appointment documented in this encounterUniversity Hospitals [facility]01-17-2025 Telephone encounter Note* Telephone Encounter - Mary Conner CMA - 04/14/2024 3:23 PM EST Left message for patient to call the office back to confirm upcoming appointment 04/20 at 1:[address] Valdivia in [place]. Also stated that patient needs to get labs done prior to [facility] Miscellaneous Notes* Telephone Encounter - Mary Conner CMA - 04/06/2024 2:38 PM EST Left message for patient to call the office back to confirm upcoming appointment 04/13 at 2:[address] Valdivia in [place]. Also stated that patient needs to get labs done prior to upcoming appointment documented in this encounterUniversity Hospitals [facility] Center01-09-2025 Telephone encounter Note* Telephone Encounter - Mary Conner CMA - 04/06/2024 2:38 PM EST Left message for patient to call the office back to confirm upcoming appointment 04/13 at 2:[address] Valdivia in [place]. Also stated that patient needs to get labs done prior to upcoming appointment [facility]O [id number] Progress note Author Cathy Brar [facility] Note Date/Time March 14, 2024 11:23am [facility] [address] [place] [address] Wound Center Provider Note Signed Patient: Ganga Stinson MR#: [id number] : 1960 Acct:[id number] Age/Sex: 63 / M Copies to: MD [...] start?: 10 plus years Mode of Arrival/ Chemistry Research Assistant: Personal vehicle and Family Assistive Device Used [...] Itching Wound/Ulcer Sacrum: Bed Appearance: Beefy Red, [place], Rolled Edges and Yellow Percent of Wound [...] Ischium: Bed Appearance: Beefy Red, Bone Palpable, [place] and Yellow Percent of Wound Bed Granulated/Red: [...] Ischium: Bed Appearance: Beefy Red, Bone Palpable, [place], Rolled Edges and Yellow Percent of Wound Bed Granulated/Red: 90 Percent of Devitalized: 10 Length (cm): 0.5 Width (cm): 0.5 Depth (cm): 2.5 CM Sq: 0.250 Tunneling Position: 10:00 Tunneling Depth: 4 Surrounding Tissue Appearance: [place] and Macerated Surrounding Tissue Temp: Warm Drainage [...] underlying condition with diabetic neuropathy,unspecified; 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 Plan Continue [...] signed by MD Cathy Brar> 03/14/24 1123 [facility] Work Phone: 1(914) 781-804312-17-2024 Evaluation note* Diagnosis Onset Date Resolution Status [...] spinal cord injury chronic March 14 10:42am [facility] Work Phone: 1(812) 255-710312-17-2024 [place] [address] Wound Center Provider Note Signed Patient: Ganga Stinson MR#: [id number] : 1960 Acct:[id number] Age/Sex: 63 / M Copies to: MD [...] start?: 10 plus years Mode of Arrival/ Chemistry Research Assistant: Personal vehicle and Family Assistive Device Used [...] Itching Wound/Ulcer Sacrum: Bed Appearance: Beefy Red, [place], Rolled Edges and Yellow Percent of Wound [...] Ischium: Bed Appearance: Beefy Red, Bone Palpable, [place] and Yellow Percent of Wound Bed Granulated/Red: [...] Ischium: Bed Appearance: Beefy Red, Bone Palpable, [place], Rolled Edges and Yellow Percent of Wound Bed Granulated/Red: 90 Percent of Devitalized: 10 Length (cm): 0.5 Width (cm): 0.5 Depth (cm): 2.5 CM Sq: 0.250 Tunneling Position: 10:00 Tunneling Depth: 4 Surrounding Tissue Appearance: [place] and Macerated Surrounding Tissue Temp: Warm Drainage [...] Z79.4 - snf (current) use of insulin Plan Continue with [...] MD DD/ 112 Signed By: 03/14/24 1123 [facility]11-12-2024 Progress note Author Cathy Brar [facility] Note Date/Time February 08, 2024 11:44am [facility] [address] [place] [address] Wound Center Provider Note Signed Patient: Ganga Stinson MR#: [id number] : 1960 Acct:[id number] Age/Sex: 63 / M Copies to: MD [...] start?: 10 plus years Mode of Arrival/ Chemistry Research Assistant: Personal vehicle and Family Assistive Device Used [...] Itching Wound/Ulcer Sacrum: Bed Appearance: Beefy Red, [place], Rolled Edges and Yellow Percent of Wound [...] Jelly Right Ischium: Bed Appearance: Beefy Red, [place] and Yellow Percent of Wound Bed Granulated/Red: 90 Percent of Devitalized: 10 Length (cm): 6.6 Width (cm): 7.4 Depth (cm): 4.0 CM Sq: 48.840 Undermining Position: 8-11 Undermining Depth: 3.5 Tunneling Position: 00:00 Tunneling Depth: 0 Surrounding Tissue Appearance: Rolled Edges and Rash/Irritation Surrounding Tissue Temp: Warm Drainage Amount: Large Drainage Description: Serosanguineous Drainage Odor: No Odor Left Ischium: Bed Appearance: Beefy Red, [place], Rolled Edges and Yellow Percent of Wound [...] Z79.4 - snf (current) use of insulin Plan Continue with current dressing changes and pressure relief. Podiatry following the patient's foot ulcers. Follow-up in 1 month See Instructions for Orders See Instructions for Orders See Wound Discharge Instructions for Orders: Dictated By: Cathy Brar MD DD/ 1141 Signed By: <Electronically signed by MD Cathy Brar> 02/08/24 1144 [facility] Work Phone: [phone] Evaluation note* Diagnosis Onset Date Resolution Status [...] spinal cord injury chronic February 07 10:48am [facility] Work Phone: 1(206) 789-921311-12-2024 [place] [address] Wound Center Provider Note Signed Patient: Ganga Stinson MR#: [id number] : 1960 Acct:[id number] Age/Sex: 63 / M Copies to: MD [...] start?: 10 plus years Mode of Arrival/ Chemistry Research Assistant: Personal vehicle and Family Assistive Device Used [...] Itching Wound/Ulcer Sacrum: Bed Appearance: Beefy Red, [place], Rolled Edges and Yellow Percent of Wound [...] Jelly Right Ischium: Bed Appearance: Beefy Red, [place] and Yellow Percent of Wound Bed Granulated/Red: 90 Percent of Devitalized: 10 Length (cm): 6.6 Width (cm): 7.4 Depth (cm): 4.0 CM Sq: 48.840 Undermining Position: 8-11 Undermining Depth: 3.5 Tunneling Position: 00:00 Tunneling Depth: 0 Surrounding Tissue Appearance: [place] and Rash/Irritation Surrounding Tissue Temp: Warm Drainage Amount: Large Drainage Description: Serosanguineous Drainage Odor: No Odor Left Ischium: Bed Appearance: Beefy Red, [place], Rolled Edges and Yellow Percent of Wound [...] underlying condition with diabetic neuropathy,unspecified; 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 Podiatry following the patient's foot ulcers. Follow-up in 1 month See Instructions for Orders See Instructions for Orders See Wound Discharge Instructions for Orders: Dictated By: Cathy Brar MD DD/ 1141 Signed By: 02/08/24 1144 [facility]10-24-2024 History of Present illness Narrative * [...] documented in this encounterUniversity of Missouri Children's HospitalPlpqrhmrwo22-43-0185 Evaluation note* Diagnosis Stage 3a chronic kidney disease ([facility])- Primary documented in this encounter [facility]10-16-2024 Miscellaneous Notes* Telephone Encounter - Fatemeh Cain - 01/12/2024 9:03 AM EDT LM to schedule new pt appt. documented in this encounterUniversity [facility]10-16-2024 Telephone encounter Note* Telephone Encounter - Fatemeh Cain - 01/12/2024 9:03 AM EDT SHAMEKA to schedule new pt appt. [facility]10-08-2024 Progress note Author Cathy Brar [facility] Note Date/Time January 04, 2024 11 :52am [facility] [address] [place] [address] Wound Center Provider Note Signed Patient: Ganga Stinson MR#: [id number] : 1960 Acct:[id number] Age/Sex: 63 / M Copies to: MD [...] start?: 10 plus years Mode of Arrival/ Chemistry Research Assistant: Personal vehicle and Family Assistive Device Used [...] Itching Wound/Ulcer Sacrum: Bed Appearance: Beefy Red, [place] and Yellow Percent of Wound Bed Granulated/Red: 90 Percent of Devitalized: 10 Length (cm): 2.9 Width (cm): 1.5 Depth (cm): 3 CM Sq: 4.350 Undermining Position: 360 Undermining Depth: 3.5 Surrounding Tissue Appearance: Bright Red and Rash/Irritation Surrounding Tissue Temp: Warm Drainage Amount: Large Drainage Description: Serosanguineous Drainage Odor: No Odor Right Ischium: Bed Appearance: Beefy Red, [place] and Yellow Percent of Wound Bed Granulated/Red: 90 Percent of Devitalized: 10 Length (cm): 7 Width (cm): 7.5 Depth (cm): 4.0 CM Sq: 52.500 Undermining Position: 8-11 Undermining Depth: 4.0 Tunneling Position: 00:00 Tunneling Depth: 0 Surrounding Tissue Appearance: [place] and Rash/Irritation Surrounding Tissue Temp: Warm Drainage Amount: Large Drainage Description: Serosanguineous Drainage Odor: No Odor Left Ischium: Bed Appearance: Beefy Red, [place], [place]led [place]ges and Yellow Percent of Wound Bed Granulated/Red: 90 Percent of Devitalized: 10 Length (cm): 0.7 Width (cm): 0.8 Depth (cm): 2.9 CM Sq: 0.560 Tunneling Position: 10:00 Tunneling Depth: 3 Surrounding Tissue Appearance: [place] Surrounding Tissue Temp: Warm Drainage Amount: Large [...] underlying condition with diabetic neuropathy,unspecified; 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 Podiatry following the patient's foot ulcers. Follow-up in 1 month See Instructions for Orders See Instructions for Orders See Wound Discharge Instructions for Orders: Dictated By: Cathy Brar MD DD/ 1050 Signed By: <Electronically signed by MD Cathy Brar> 01/04/24 1052 [facility] Work Phone: 1(463) 205-428010-08-2024 [place] [address] Wound Center Provider Note Signed Patient: Ganga Stinson MR#: [id number] : 1960 Acct:[id number] Age/Sex: 63 / M Copies to: MD [...] start?: 10 plus years Mode of Arrival/ Chemistry Research Assistant: Personal vehicle and Family Assistive Device Used [...] Itching Wound/Ulcer Sacrum: Bed Appearance: Beefy Red, [place] and Yellow Percent of Wound Bed Granulated/Red: 90 Percent of Devitalized: 10 Length (cm): 2.9 Width (cm): 1.5 Depth (cm): 3 CM Sq: 4.350 Undermining Position: 360 Undermining Depth: 3.5 Surrounding Tissue Appearance: Bright Red and Rash/Irritation Surrounding Tissue Temp: Warm Drainage Amount: Large Drainage Description: Serosanguineous Drainage Odor: No Odor Right Ischium: Bed Appearance: Beefy Red, [place] and Yellow Percent of Wound Bed Granulated/Red: 90 Percent of Devitalized: 10 Length (cm): 7 Width (cm): 7.5 Depth (cm): 4.0 CM Sq: 52.500 Undermining Position: 8-11 Undermining Depth: 4.0 Tunneling Position: 00:00 Tunneling Depth: 0 Surrounding Tissue Appearance: [place] and Rash/Irritation Surrounding Tissue Temp: Warm Drainage Amount: Large Drainage Description: Serosanguineous Drainage Odor: No Odor Left Ischium: Bed Appearance: Beefy Red, [place], [place] and Yellow Percent of Wound Bed Granulated/Red: 90 Percent of Devitalized: 10 Length (cm): 0.7 Width (cm): 0.8 Depth (cm): 2.9 CM Sq: 0.560 Tunneling Position: 10:00 Tunneling Depth: 3 Surrounding Tissue Appearance: [place] Surrounding Tissue Temp: Warm Drainage Amount: Large [...] Z79.4 - snf (current) use of insulin Plan Continue with current dressing changes and pressure relief. Podiatry following the patient's foot ulcers. Follow-up in 1 month See Instructions for Orders See Instructions for Orders See Wound Discharge Instructions for Orders: Dictated By: Cathy Brar MD DD/ 1050 Signed By: 01/04/24 1052 [facility]08-22-2024 History of Present illness Narrative * [...] panel CBC and differential documented in this encounterUniversity of Missouri Children's [id number] Progress note Author Cathy Brar [facility] Note Date/Time November 09, 2023 1: 07pm [facility] [address] [place] [address] Wound Center Provider Note Signed Patient: Ganga Stinson MR#: [id number] : 1960 Acct:[id number] Age/Sex: 63 / M Copies to: MD [...] his foot ulcers and he currently does [facility] for the foot ulcers. Currently, home [...] start?: 10 plus years Mode of Arrival/ Chemistry Research Assistant: Personal vehicle and Family Assistive Device Used [...] Sacrum: Bed Appearance: Beefy Red, Bone Palpable, [place] and Yellow Percent of Wound Bed Granulated/Red: 90 Percent of Devitalized: 10 Length (cm): 2.5 Width (cm): 2 Depth (cm): 3 CM Sq: 5.000 Undermining Position: 360 Undermining Depth: 4 Surrounding Tissue Appearance: Bright Red and Rash/Irritation Surrounding Tissue Temp: Warm Drainage Amount: Large Drainage Description: Serosanguineous Drainage Odor: No Odor Right Ischium: Bed Appearance: Beefy Red, [place] and Yellow Percent of Wound Bed Granulated/Red: [...] Odor Left Ischium: Bed Appearance: Beefy Red, [place], Rolled Edges and Yellow Percent of Wound Bed Granulated/Red: 90 Percent of Devitalized: 10 Length (cm): 0.7 Width (cm): 0.8 Depth (cm): 2.3 CM Sq: 0.560 Tunneling Position: 10:00 Tunneling Depth: 3 Surrounding Tissue Appearance: [place] Surrounding Tissue Temp: Warm Drainage Amount: Large [...] Z79.4 - snf (current) use of insulin Plan Continue with [...] <Electronically signed by MD Cathy Brar> 11/09/[address] [place] [address] Work Phone: 1(287) 535-310808-13-2024 [place] [address] Wound Center Provider Note Signed Patient: Ganga Stinson MR#: [id number] : 1960 Acct:[id number] Age/Sex: 63 / M Copies to: MD [...] his foot ulcers and he [facility] foot [facility]. Currently, home [...] start?: 10 plus years Mode of Arrival/ Chemistry Research Assistant: Personal vehicle and Family Assistive Device Used [...] Sacrum: Bed Appearance: Beefy Red, Bone Palpable, [place] and Yellow Percent of Wound Bed Granulated/Red: 90 Percent of Devitalized: 10 Length (cm): 2.5 Width (cm): 2 Depth (cm): 3 CM Sq: 5.000 Undermining Position: 360 Undermining Depth: 4 Surrounding Tissue Appearance: Bright Red and Rash/Irritation Surrounding Tissue Temp: Warm Drainage Amount: Large Drainage Description: Serosanguineous Drainage Odor: No Odor Right Ischium: Bed Appearance: Beefy Red, [place] and Yellow Percent of Wound Bed Granulated/Red: [...] Odor Left Ischium: Bed Appearance: Beefy Red, [place], Rolled [place]ges and Yellow Percent of Wound Bed Granulated/Red: 90 Percent of Devitalized: 10 Length (cm): 0.7 Width (cm): 0.8 Depth (cm): 2.3 CM Sq: 0.560 Tunneling Position: 10:00 Tunneling Depth: 3 Surrounding Tissue Appearance: [place] Surrounding Tissue Temp: Warm Drainage Amount: Large [...] Z79.4 - snf (current) use of insulin Plan Continue with [...] MD DD/ 1202 Signed By: 11/09/23 1207 [facility]07-09-2024 Progress note Author Cathy Brar [facility] Note Date/Time October 05, 2023 12:20 pm [facility] [address] [place] [address] Wound Center Provider Note Signed Patient: Ganga Stinson MR#: [id number] : 1960 Acct:[id number] Age/Sex: 63 / M Copies to: MD [...] is Dr. Abbott. Patient also sees a lock up worker. Apparently he was to start on a new medication and will need to be on blood thinners because of the medication. Subjective Pain Buttock: Pain Intensity: 6 Wound/Ulcer History When did wound start?: 10 plus years Mode of Arrival/ Chemistry Research Assistant: Personal vehicle and Family Assistive Device Used [...] Itching Wound/Ulcer Sacrum: Bed Appearance: Beefy Red, [place] and Yellow Percent of Wound Bed Granulated/Red: 90 Percent of Devitalized: 10 Length (cm): 2.6 Width (cm): 1.5 Depth (cm): 2.9 CM Sq: 3.900 Undermining Position: 360 (deepest at 9) Undermining Depth: 4.5 Surrounding Tissue Appearance: Hyperpigmented Surrounding Tissue Temp: Warm Drainage Amount: Large Drainage Description: Serosanguineous Drainage Odor: No Odor Right Ischium: Bed Appearance: Beefy Red, Bone Palpable, [place] and Yellow Percent of Wound Bed Granulated/Red: 90 Percent of Devitalized: 10 Length (cm): 5 Width (cm): 7 Depth (cm): 3.5 CM Sq: 35.000 Undermining Position: 8-11 (deepest at 9) Undermining Depth: 3.7 Surrounding Tissue Appearance: Hyperpigmented Surrounding Tissue Temp: Warm Drainage Amount: Large Drainage Description: Serosanguineous Left Ischium: Bed Appearance: Beefy Red, [place] and Yellow Percent of Wound Bed Granulated/Red: [...] Z79.4 - snf (current) use of insulin Plan Continue with current dressing changes and pressure relief. Okay to start on new medications prescribed by lock up worker. Patient and were told to monitor for evidence of bleeding from the wounds. Follow-up in about 1 month. See Instructions for Orders See Instructions for Orders See Wound Discharge Instructions for Orders: Dictated By: Cathy Brar MD DD/ 1115 Signed By: <Electronically signed by MD Cathy Brar> 10/05/23 1120 [facility] Work Phone: 1(615) 617-126907-09-2024 [place] [address] Wound Center Provider Note Signed Patient: Ganga Stinson MR#: [id number] : 1960 Acct:[id number] Age/Sex: 63 / M Copies to: MD [...] is Dr. Abbott. Patient also sees a lock up worker. Apparently he was to start on a new medication and will need to be on blood thinners because of the medication. Subjective Pain Buttock: Pain Intensity: 6 Wound/Ulcer History When did wound start?: 10 plus years Mode of Arrival/ Chemistry Research Assistant: Personal vehicle and Family Assistive Device Used [...] Itching Wound/Ulcer Sacrum: Bed Appearance: Beefy Red, [place] and Yellow Percent of Wound Bed Granulated/Red: 90 Percent of Devitalized: 10 Length (cm): 2.6 Width (cm): 1.5 Depth (cm): 2.9 CM Sq: 3.900 Undermining Position: 360 (deepest at 9) Undermining Depth: 4.5 Surrounding Tissue Appearance: Hyperpigmented Surrounding Tissue Temp: Warm Drainage Amount: Large Drainage Description: Serosanguineous Drainage Odor: No Odor Right Ischium: Bed Appearance: Beefy Red, Bone Palpable, [place] and Yellow Percent of Wound Bed Granulated/Red: 90 Percent of Devitalized: 10 Length (cm): 5 Width (cm): 7 Depth (cm): 3.5 CM Sq: 35.000 Undermining Position: 8-11 (deepest at 9) Undermining Depth: 3.7 Surrounding Tissue Appearance: Hyperpigmented Surrounding Tissue Temp: Warm Drainage Amount: Large Drainage Description: Serosanguineous Left Ischium: Bed Appearance: Beefy Red, [place] and Yellow Percent of Wound Bed Granulated/Red: [...] Z79.4 - snf (current) use of insulin Plan Continue with current dressing changes and pressure relief. Okay to start on new medications prescribed by lock up worker. Patient and were told to monitor for evidence of bleeding from the wounds. Follow-up in about 1 month. See Instructions for Orders See Instructions for Orders See Wound Discharge Instructions for Orders: Dictated By: Cathy Brar MD DD/ 1115 Signed By: 10/05/23 1120 [facility]02-15-2024 Telephone encounter Note* Telephone Encounter - Sandhya Velasquez RN - 05/13/2023 3:00 PM EST Patient called to inquire about the antibiotic that was supposed to be sent after his 05/06 visit. Can you resend? Thank you! [facility] [id number] Miscellaneous Notes* Telephone Encounter - Sandhya Velasquez RN - 05/13/2023 3:00 PM EST Patient called to inquire about the antibiotic that was supposed to be sent after his 05/06 visit. Can you resend? Thank you! documented in this encounterUniversity of Missouri Children's [id number] History of Present illness Narrative* Jonathan Bah [...] unable to go to wound care at [facility] Patient also has Integra wound graft to [...] home health. Patient currently going at [facility] for decubitus ulcer Patient still awaits MRI approval as had to be resubmitted due to need for new x-ray on previous visit in awaits MRI at [facility] . Referral has been sent to [facility] wound center with attempt to follow-up for [...] region for possible osteomyelitis to fibula at [facility] ASSESSMENT 12 weeks s/p left 4th and 5th ray amputation with incision and drainage and partial closure with single lobe flap Type 2 diabetic with paraplegia 1. Ulcer of left ankle, with necrosis of bone (HCC) (CMS/HCC) 2. Diabetes mellitus due to underlying condition with diabetic polyneuropathy, unspecified whether terminal system operator insulin use (CMS/HCC) 3. Acute complete paraplegia [...] antibiotics Patient to follow up with [facility] for decubitus ulcer and instructions given to contact [facility] for follow-up.. Skin flap area of [...] MRI Jonathan Bah DPM documented in this encounterUniversity of Missouri Children's [id number] Progress note Author Cathy Brar [facility] May 04, 2023 1:07pm Note Date/Time May 04, 2023 1 2:48pm [facility] [address] [place] [address] Wound Center Provider Note Signed Patient: Ganga Stinson MR#: [id number] : 1960 Acct:[id number] Age/Sex: 62 / M Copies to: MD [...] did wound start?: years Mode of Arrival/ Chemistry Research Assistant: Personal vehicle Assistive Device Used Today: Wheelchair [...] Itching Wound/Ulcer Right Lateral Ankle: Bed Appearance: [place] and Yellow Percent of Wound Bed Granulated/Red: [...] No Odor Right Medial Foot: Bed Appearance: [place] and Yellow Percent of Wound Bed Granulated/Red: 50 Percent of Devitalized: 50 Length (cm): 1.0 Width (cm): 1.0 Depth (cm): 0.3 CM Sq: 1.000 Surrounding Tissue Appearance: Hyperpigmented Surrounding Tissue Temp: Warm Drainage Amount: Moderate Drainage Description: Serosanguineous Drainage Odor: No Odor Sacrum: Bed Appearance: Beefy Red, [place] and Yellow Percent of Wound Bed Granulated/Red: 90 Percent of Devitalized: 10 Length (cm): 2.9 Width (cm): 1.5 Depth (cm): 2.5 CM Sq: 4.350 Undermining Position: 360 deepest at 9:00 Undermining Depth: 4.0 Surrounding Tissue Appearance: Hyperpigmented, Macerated and Callous Surrounding Tissue Temp: Warm Drainage Amount: Large Drainage Description: Serosanguineous Drainage Odor: No Odor Right Ischium: Bed Appearance: Beefy Red, [place] and Yellow Percent of Wound Bed Granulated/Red: 90 Percent of Devitalized: 10 Length (cm): 5.3 Width (cm): 7.5 Depth (cm): 4.0 CM Sq: 39.750 Surrounding Tissue Appearance: [place], Macerated and Callous Surrounding Tissue Temp: Warm Drainage Amount: Large Drainage Description: Serosanguineous Drainage Odor: No Odor Left Ischium: Bed Appearance: Beefy Red and [place] Percent of Wound Bed Granulated/Red: 100 Percent [...] underlying condition with diabetic neuropathy,unspecified; 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 (5) Foot ulcer [...] <Electronically signed by MD Cathy Brar> 05/04/23 3434 [facility] Work Phone: 1(133) 964-904108-14-2023 Hospital Discharge instructions Patient Education 11/09/2022 14:08:53 [...] Follow these instructions at home: Medicines Take xwfo-pky-xziomyn and prescription medicines only as told by [...] provider. Document Revised: 12/04/2020 Document Reviewed: 12/04/2020 [employer] Patient Education 2022 [employer]. Follow Up Care 10/13/2022 11:18:02 With:ALLEN NAZARIO, Jovanny Christie, URL Address: [facility] [address] [place] [address]- [phone] When: Unknown Comments:sched cysto [facility] [place] 03-31-2023 History of Present [...] 06/26/2022 12:01 PM EDT Physical Therapy Facility/Department: [facility] Daily Treatment Note NAME: [...] 06/26/2022 12:00 PM EDT Occupational Therapy Facility/Department: [facility] Daily Treatment Note NAME: [...] 06/26/2022 9:35 AM EDT [facility] [...] Crockett RN - 06/26/2022 3:00 AM EDT Jira Developer at bedside for wound dressing change- pt incontinent of bowels. See flow sheet for details. * Panchito Crockett RN - 06/26/2022 1:30 AM EDT Pt incontinent of stool. Jira Developer at bedside for wound change dressing per order- see flow sheet for details. * Panchito Crockett RN - 06/26/2022 12:50 AM EDT Patient at bedside for reassessment and vitals- see flow sheet for details. Pt remains alert and oriented c4-calm and cooperative. GoLYTELY at bedside and automotive service writer encourages patient to consume fluid- pt validates understanding. Patient currently denying pain and discomfort. Denying any additional needs, call light placed within reach, bed in lowest position. Jira Developer encourages patient to call out for assistance. Will continue to monitor. * Panchito Crockett RN - 06/26/2022 12:45 AM EDT Jira Developer at bedside- pt incontinent of stool- wound dressing changed per order. See flow sheet. * Panchito Crockett RN - 06/25/2022 10:05 PM EDT Jira Developer at bedside to for wound dressing change per order. See MAR for details. * Eloise Lopez PTA - 06/25/2022 3:56 PM EDT Physical Therapy Facility/Department: [facility] Daily Treatment Note NAME: [...] bed. Supine BLE PROM exercises in all [id number] ea. Seated EOB AROM in LAQ 2x [...] Time Out 1430 Minutes 28 Eloise Brickner, KNIFE CHANGER * Zoila Villafuerte PA-C - 06/25/2022 1:07 [...] never been a smoker. He saw a engine research engineer at [facility] 2 years ago in 2020. At [...] ankle 12/30/2016 Paralysis of both lower limbs ([facility]) Paraplegia ([facility]) Type II or unspecified type [...] BEADS performed by Gabriel Haile DPM at [facility] OR [place] I&D BELOW FASCIA FOOT 1 BURSAL SPACE Right 04/10/2017 RIGHT ANKLE AND RIGHT HEEL DEBRIDEMENT INCISION AND DRAINAGE WITH CULTURES SENT performed by William Jimenez MD at [facility] OR [place] OFFICE/OUTPT VISIT,PROCEDURE ONLY Right 06/14/2017 FOOT DEBRIDEMENT INCISION AND DRAINAGE-ANKLE INCLUDING BONE BIOPSY performed by Ro Husseint [facility] OR TOE AMPUTATION Right 12/25/2016 right fifth toe amputation with I&D, ATB beads per Dr. Haile [employer] [place] filter Social History: Social History Tobacco Use [...] Pressure injury of right ankle, stage 4 ([facility]) 06/24/2022 Open wound of right ankle 12/30/2016 Mixed hyperlipidemia 04/25/2015 Hyponatremia 04/25/2015 Diabetes mellitus ([facility]) 07/02/2011 Paraplegia ([facility]) 03/12/2011 MSSA (methicillin susceptible Staphylococcus aureus) infection 05/28/2017 Bacterial infection 02/17/2017 Enterococcus faecalis infection 12/28/2016 Skin ulcer of right heel with fat layer exposed ([facility]) 09/02/2016 Skin ulcer of right 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 ([facility]) 04/25/2015 Decubitus ulcer of coccygeal region 07/19/2013 Cauda equina syndrome ([facility]) 12/09/2011 Open wound of knee, leg (except thigh), and ankle, complicated 02/25/2011 Acute kidney injury superimposed on CKD ([facility]) 06/23/2022 Abnormal EKG 06/23/2022 Neurogenic bladder 06/23/2022 Hyperkalemia 06/22/2022 Osteomyelitis of ankle or foot, right, acute ([facility]) Decubitus ulcer of coccygeal region, stage 4 ([facility]) 04/09/2017 Cellulitis 04/08/2017 Morbid obesity due to excess calories ([facility]) 01/01/2017 Acute on chronic renal failure ([facility]) 12/30/2016 Osteomyelitis of right foot (HCC) Hypertension Depression PLAN: Pre-Op Clearance: Pre-Operative Risk assessment using 2014 ACC/AHA guidelines Emergent procedure No Active Cardiac Condition No (decompensated HF, Arrhythmia, [place] <3 weeks, severe valve disease) Risk Level [...] with the plan. Sincerely, Zoila Villafuerte PA-C [facility] Vice President [address] [place], [place] [id number] , I believe that the risk of [...] ankle 12/30/2016 Paralysis of both lower limbs ([facility]) Paraplegia ([facility]) Type II or unspecified type [...] BEADS performed by Gabriel Haile DPM at [facility] OR [place] I&D BELOW FASCIA FOOT 1 BURSAL SPACE Right 04/10/2017 RIGHT ANKLE AND RIGHT HEEL DEBRIDEMENT INCISION AND DRAINAGE WITH CULTURES SENT performed by William Jimenez MD at [facility] [place] OFFICE/OUTPT VISIT,PROCEDURE ONLY Right 06/14/2017 FOOT DEBRIDEMENT INCISION AND DRAINAGE-ANKLE INCLUDING BONE BIOPSY performed by Ro Husseint [facility] OR TOE AMPUTATION Right 12/25/2016 right fifth [...] Matias Garcia MD, 5,000 Units at 06/23/22 [id number] PE: VSS, Afebrile, NAD, A&O x 3, Aloof Labs: as above RLE ; lateral ankle ; FT+ ulcerative wound , +PTB IMP: stage 4 ankle decubitus, appaarent bone involvement Stable for minor bedside procedure Tx: see procedure notes P: see orders / AVS Yakov Min DPM 06/25/2022 12:28 PM * LAURENT Gomez - 06/25/2022 11:55 AM EDT Occupational Therapy Facility/Department: [facility] Daily Treatment Note NAME: [...] MD 8:05 AM 06/25/2022 * Shelly MoralesShea, SKIN PILER - INTELLIGENCE OFFICER BASIC - 06/25/2022 7:34 AM EDT Images from [...] labs-Hgb 7.6 today Nutrition status: morbid obesity Drapery Cutter consult initiated Hospital Prophylaxis: DVT: Heparin Stress Ulcer: na Disposition: Shared decision making: All test results, treatment options and disposition options were discussed with the patient today Social determinants of health that may impact management: none Code status: Full Code Disposition: Discharge plan is home [facility] Advanced Care Planning documentation: [x] [...] the patient's medical record. [DOES NOT SATISFY [facility] PERFORMANCE] Shelly Mondragon APRN - DOLLY , ESTELLE, TECHNICIAN SUPPORT ENGINEER-C [facility] 06/25/2022, 7:34 AM Shelly Mondragon APRN-DOLLY Associated attestation - Matias Garcia MD - 06/25/2022 7:34 PM EDT Images from the original note were not included. [address] , [place], [place], [address] Attestation Patient: Ganga Stinson Date of Admission: 06/22/2022 4:21 PM Hospital Day # 3 Date of Evaluation: 06/25/2022 I personally evaluated and examined the patient [id number] in conjunction with the PA/TECHNICIAN SUPPORT ENGINEER and agree with the management and dispostition of the patient. Please see the PA/TECHNICIAN SUPPORT ENGINEER's note for full details.My kohli findings are: [...] with the plan as outlined in the TECHNICIAN SUPPORT ENGINEER/PA's note Disposition: Discharge plan is pending Please note that this chart was generated using voice recognition Pusheron dictation software. Although every effort was made to ensure the accuracy of this automated system support analyst, some errors in system support analyst may have occurred. Matias Garcia MD 06/25/2022 [...] Samayoa RN - 06/25/2022 12:52 AM EDT Jira Developer at bedside at this time to perform [...] Samayoa RN - 06/24/2022 6:43 PM EDT Jira Developer at bedside at this time to perform [...] 06/24/2022 4:57 PM EDT Physical Therapy Facility/Department: [facility] Daily Treatment Note NAME: [...] Time Out 1643 Minutes 19 Martita Tam, KNIFE CHANGER * Heri Valdez RN - 06/24/2022 4:00 [...] never been a smoker. He saw a engine research engineer at [facility] 2 years ago in 2020. At [...] on CKD (HCC) 06/23/2022 Cauda equina syndrome ([facility]) 2004 Depression Hypertension MRSA (methicillin resistant staph aureus) culture positive 04/10/2017 right ankle Open wound of right ankle 12/30/2016 Paralysis of both lower limbs ([facility]) Paraplegia ([facility]) Type II or unspecified type [...] BEADS performed by Gabriel Haile DPM at [facility] OR [place] I&D BELOW FASCIA FOOT 1 BURSAL SPACE Right 04/10/2017 RIGHT ANKLE AND RIGHT HEEL DEBRIDEMENT INCISION AND DRAINAGE WITH CULTURES SENT performed by William Jimenez MD at [facility] OR [place] OFFICE/OUTPT VISIT,PROCEDURE ONLY Right 06/14/2017 FOOT DEBRIDEMENT INCISION AND DRAINAGE-ANKLE INCLUDING BONE BIOPSY performed by Ro Husseint [facility] OR TOE AMPUTATION Right 12/25/2016 right fifth toe amputation with I&D, ATB beads per Dr. Haile [employer] [place] filter Social History: Social History Tobacco Use [...] Mixed hyperlipidemia 04/25/2015 Hyponatremia 04/25/2015 Diabetes mellitus ([facility]) 07/02/2011 Paraplegia ([facility]) 03/12/2011 MSSA (methicillin susceptible Staphylococcus aureus) infection 05/28/2017 Bacterial infection 02/17/2017 Enterococcus faecalis infection 12/28/2016 Skin ulcer of right heel with fat layer exposed ([facility]) 09/02/2016 Skin ulcer of right 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 ([facility]) 04/25/2015 Decubitus ulcer of coccygeal region 07/19/2013 Cauda equina syndrome ([facility]) 12/09/2011 Open wound of knee, leg (except thigh), and ankle, complicated 02/25/2011 Acute kidney injury superimposed on CKD ([facility]) 06/23/2022 Abnormal EKG 06/23/2022 Neurogenic [...] with the plan. Sincerely, Zoila Villafuerte PA-C [facility] Vice President [address] [place] [address] , I believe that the risk of [...] 06/24/2022 10:32 AM EDT Occupational Therapy Facility/Department: [facility] Daily Treatment Note NAME: [...] prep on 06/25/2022 6pm MD Audra STAFF[facility] * Shelly Mondragon APRN - DOLLY [...] IRon Monitor labs Nutrition status: morbid obesity Drapery Cutter consult initiated Hospital Prophylaxis: DVT: Heparin Stress [...] MIPS PERFORMANCE] ESTELLE Katz CNP , ESTELLE, TECHNICIAN SUPPORT ENGINEER-C Hospitalist Medicine 06/24/2022, 7:34 AM Blood Transfusion [...] from the original note were not included. [address] , [place], [place], [address] Attestation Patient: Ganga Stinson Date of Admission: 06/22/2022 4:21 PM Hospital Day # 2 Date of Evaluation: 06/24/2022 I personally evaluated and examined the patient [id number] in conjunction with the PA/TECHNICIAN SUPPORT ENGINEER and agree with the management and dispostition of the patient. Please see the PA/TECHNICIAN SUPPORT ENGINEER's note for full details.My kohli findings are: [...] with the plan as outlined in the TECHNICIAN SUPPORT ENGINEER/PA's note Disposition: Discharge plan is pending, GI, Cardiology, Urology consultations, Transfuse if pRBC <7, wound care to the affected area and monitor electrolytes. Please note that this chart was generated using voice recognition Pusheron dictation software. Although every effort was made to ensure the accuracy of this automated system support analyst, some errors in system support analyst may have occurred. Matias Garcia MD 06/24/2022 9:39 PM * Geneva Samayoa RN - 06/24/2022 2:46 AM EDT Spoke with Dr. Garcia and informed him of critical lab levels. No new orders. * Geneva Samayoa RN - 06/24/2022 2:15 AM EDT Jira Developer at bedside at this time to perform [...] this time and patient transferred over to [facility]. * Geneva Samayoa RN - 06/23/2022 9:00 PM EDT Jira Developer at bedside at this time to perform [...] 06/23/2022 4:35 PM EDT Physical Therapy Facility/Department: [facility] Daily Treatment Note NAME: [...] 06/23/2022 4:31 PM EDT Occupational Therapy Facility/Department: [facility] Daily Treatment Note NAME: [...] 06/23/2022 2:08 PM EDT Physical Therapy Facility/Department: [facility] Physical Therapy Initial Assessment [...] Ambulation Assistance: Non-ambulatory Transfer Assistance: Independent Active Multimedia Author: No Additional Comments: Pt. with hx of [...] 06/23/2022 11:26 AM EDT Occupational Therapy Facility/Department: [facility] Occupational Therapy Initial Assessment [...] Ambulation Assistance: Non-ambulatory Transfer Assistance: Independent Active Multimedia Author: No Additional Comments: Pt. with hx of [...] to Severe Extremities (+ 2 pitting BLE) Mine Promotor Strength: Not Performed Nutrition Assessment: Altered nutrition [...] Anthropometric Measures: Height: 5' 11 (180.3 cm) [place] Body Weight (IBW): 172 lbs (78 kg) [...] Used for Energy Requirements: Current Energy (kcal/day): 3797-3065 (20-23/kg) Weight Used for Protein Requirements: [place] Protein (g/day): 109-133g (1.4-1.7g/kg) Method Used for [...] Nutrition Supplement [address], [place] Contact: [phone] * Panchito Crockett RN - 06/23/2022 1:00 AM EDT Jira Developer at bedside for reassessment-see flow sheet for details. Patient remains alert and oriented x4-calm and cooperative. Patient continues to deny pain and discomfort. Incontinence and stewart care provided. Denying any additional needs, call light placed within reach, bed in lowest position and alarm engaged to promote patient safety. Will continue to monitor. * Panchito Crockett RN - 06/23/2022 12:00 AM EDT Jira Developer attempted to place rowe catheter at this time- unable to advance 16 FR catheter. Rn Felt Cutter notified and will attempt- will continue to monitor. Patient reports no pain or discomfort. * Panchito Crockett RN - 06/22/2022 11:12 PM EDT Jira Developer phoned Dr. Garcia at this informing physician [...] continue to monitor. documented in this encounterBON [employer] Phone: 1(571) 637-866903-31-2023 Hospital Discharge instructions* Discharge Instructions* Fabby Felder [...] most local grocery stores, pharmacies, and chain [employer]. If you have any questions about your diet or nutrition, call the hospital and ask for the dietitian. Regular documented in this encounterBON [employer] Work Phone: 1(439) 121-154303-07-2023 Progress note Author Cathy Brar [facility] June 02, 2022 12:14pm Note Date/Time June 02, 2022 12:1 4pm [facility] [address] [place] [address] Wound Center Provider Note Signed Patient: Ganga Stinson MR#: [id number] : 1960 Acct:[id number] Age/Sex: 61 / M Copies to: MD Fidel Whitmore MD~ HPI Date of Visit Date of Visit: Date of Service: 06/02/2022 Time of Service: 12:01 Narrative HPI: Patient is being followed for his chronic bilateral ischial, sacral and right foot ulcers. His is doing his dressing changes. Patient has been having some right hip pain and underwent a CT scan in [place] on 03/14/2022. This showed slight deepening of [...] Sacrum: Bed Appearance: Beefy Red, Bone Palpable, [place] and Yellow Percent of Wound Bed Granulated/Red: 90 Percent of Devitalized: 10 Length (cm): 3.5 Width (cm): 1.8 Depth (cm): 2 CM Sq: 6.300 Undermining Position: 360 Undermining Depth: 3 Surrounding Tissue Appearance: [place] Surrounding Tissue Temp: Warm Drainage Amount: Large Drainage Description: Serosanguineous Drainage Odor: No Odor Left Ischium: Bed Appearance: Beefy Red, Bone Palpable, [place] and Yellow Percent of Wound Bed Granulated/Red: 90 Percent of Devitalized: 10 Length (cm): 7 Width (cm): 6 Depth (cm): 5.5 CM Sq: 42.000 Surrounding Tissue Appearance: [place] Surrounding Tissue Temp: Warm Drainage Amount: Large Drainage Description: Serosanguineous Drainage Odor: No Odor Right Ischium: Bed Appearance: Beefy Red, Bone Palpable, [place] and Yellow Percent of Wound Bed Granulated/Red: 90 Percent of Devitalized: 10 Length (cm): 0.7 Width (cm): 1 Depth (cm): 4 CM Sq: 0.700 Surrounding Tissue Appearance: [place] Surrounding Tissue Temp: Warm Drainage Amount: Moderate Drainage Description: Serosanguineous Drainage Odor: No Odor Left Ankle: Bed Appearance: Brown, [place] and Yellow Percent of Wound Bed Granulated/Red: 5 Percent of Devitalized: 95 Length (cm): 3.5 Width (cm): 2.5 Depth (cm): 0.1 CM Sq: 8.750 Surrounding Tissue Appearance: [place] Surrounding Tissue Temp: Warm Drainage Amount: Moderate Drainage Description: Serosanguineous Drainage Odor: No Odor Medial Ankle: Bed Appearance: Brown, [place] and Yellow Percent of Wound Bed Granulated/Red: 50 Percent of Devitalized: 50 Length (cm): 3.5 Width (cm): 4 Depth (cm): 0.1 CM Sq: 14.000 Surrounding Tissue Appearance: [place] Surrounding Tissue Temp: Warm Drainage Amount: Moderate Drainage Description: Serosanguineous Drainage Odor: No Odor Medial Foot: Bed Appearance: Black Dry, Brown, [place] and Hardware Percent of Wound Bed Granulated/Red: 5 Percent of Devitalized: 95 Length (cm): 2 Width (cm): 1.2 Depth (cm): 0.1 CM Sq: 2.400 Surrounding Tissue Appearance: [place] Surrounding Tissue Temp: Warm Drainage Amount: Moderate [...] Diabetes mellitus type: type 2 Diabetes mellitus half-way insulin use:with half-way use Diabetes mellitus complication status: with skin [...] <Electronically signed by MD Cathy Brar> 06/02/22 [address] [facility] Work Phone: [phone]) 896-254212-06-2022 Progress note Author Cathy Brar [facility] March 03, 2022 12:06pm Note Date/Time March 03, 2022 1 2:06pm [facility] [address] [place] [address] Wound Center Provider Note Signed Patient: Ganga Stinson MR#: [id number] : 1960 Acct:[id number] Age/Sex: 61 / M Copies to: MD [...] Ischium: Bed Appearance: Beefy Red, Bone Palpable, [place] and Yellow Percent of Wound Bed Granulated/Red: [...] Bed Appearance: Beefy Red, Bone Palpable, Devitalized, [place], Yellow and [place]led [place] Percent of Wound Bed Granulated/Red: 50 Percent of Devitalized: 50 Length (cm): 0.7 Width (cm): 0.8 Depth (cm): 4.0 CM Sq: 0.560 Undermining Position: 0 Undermining Depth: 0 Surrounding Tissue Appearance: Macerated and [place] Surrounding Tissue Temp: Warm Drainage Amount: Moderate Drainage Description: Serosanguineous Drainage Odor: No Odor Lidocaine Applied Topically: 2% Jelly Right Buttock: Bed Appearance: Devitalized, [place] and Yellow Percent of Wound Bed Granulated/Red: 100 Percent of Devitalized: 0 Length (cm): 0 Width (cm): 0 Depth (cm): 0 CM Sq: 0.000 Surrounding Tissue Appearance: Hyperpigmented Surrounding Tissue Temp: Warm Drainage Amount: None Drainage Description: Serosanguineous Drainage Odor: No Odor Lidocaine Applied Topically: 2% Jelly Right Lower Medial Leg: Bed Appearance: [place] and Yellow Percent of Wound Bed Granulated/Red: [...] Diabetes mellitus type: type 2 Diabetes mellitus half-way insulin use:with terminal system operator use Diabetes mellitus complication status: with [...] <Electronically signed by MD Cathy Brar> 03/03/22 [address] [facility] Work Phone: 1(902) 717-909212-02-2022 NotePROCEDURE: XR HIP RT 2 3V W [...] Electronically authenticated by: KHADAR MEDINA Date: 2022-02-27 07:17[facility]11-01-2022 Progress note Author Cathy Brar [facility] January 27, 2022 12:11pm Note Date/Time January 27, 2022 1 2:11pm [facility] [address] [place] [address] Wound Center Provider Note Signed Patient: Ganga Stinson MR#: [id number] : 1960 Acct:[id number] Age/Sex: 61 / M Copies to: MD [...] 360 Undermining Depth: 3.5 Surrounding Tissue Appearance: [place] and [place]led [place] Surrounding Tissue Temp: Warm Drainage Amount: Large Drainage Description: Serosanguineous Drainage Odor: No Odor Lidocaine Applied Topically: 2% Jelly Right Heel: Bed Appearance: Beefy Red, [place] and Yellow Percent of Wound Bed Granulated/Red: 50 Percent of Devitalized: 50 Length (cm): 1.0 Width (cm): 1.4 Depth (cm): 0.1 CM Sq: 1.400 Surrounding Tissue Appearance: Peeling and Dryness Surrounding Tissue Temp: Warm Drainage Amount: Small Drainage Description: Serosanguineous Drainage Odor: No Odor Lidocaine Applied Topically: 2% Jelly Right Ischium: Bed Appearance: Beefy Red, Bone Palpable, [place] and Yellow Percent of Wound Bed Granulated/Red: [...] Bed Appearance: Beefy Red, Bone Palpable, Devitalized, [place], Yellow and Rolled Edges Percent of Wound Bed Granulated/Red: 50 Percent of Devitalized: 50 Length (cm): 1.5 Width (cm): 1.0 Depth (cm): 4.0 CM Sq: 1.500 Undermining Position: 10-3:00 Undermining Depth: 3.5 Surrounding Tissue Appearance: Macerated and [place]led [place] Surrounding Tissue Temp: Warm Drainage Amount: Moderate Drainage Description: Serosanguineous Drainage Odor: No Odor Lidocaine Applied Topically: 2% Jelly Right Buttock: Bed Appearance: Devitalized, [place] and Yellow Percent of Wound Bed Granulated/Red: 100 Percent of Devitalized: 0 Length (cm): 0 Width (cm): 0 Depth (cm): 0 CM Sq: 0.000 Surrounding Tissue Appearance: [place] Surrounding Tissue Temp: Warm Drainage Amount: None Drainage Description: Serosanguineous Drainage Odor: No Odor Lidocaine Applied Topically: 2% Jelly Right Lower Medial Leg: Bed Appearance: [place] and Yellow Percent of Wound Bed Granulated/Red: [...] Diabetes mellitus type: type 2 Diabetes mellitus half-way insulin use:with terminal system operator use Diabetes mellitus complication status: with [...] signed by MD Cathy Brar> 01/27/22 [address] [facility] Work Phone: 1(164) 463-873309-27-2022 Progress note Author Cathy Brar [facility] December 23, 2021 12:32pm Note Date/Time December 23, 2021 12:32pm [facility] [address] [place] [address] Wound Center Provider Note Signed Patient: Ganga Stinson MR#: [id number] : 1960 Acct:[id number] Age/Sex: 61 / M Copies to: MD [...] Bed Appearance: Beefy Red, Bone Palpable, Devitalized, [place] and Yellow Percent of Wound Bed Granulated/Red: 95 Percent of Devitalized: 5 Length (cm): 3.2 Width (cm): 2 Depth (cm): 2.5 CM Sq: 6.400 Undermining Position: 10-4:00 Undermining Depth: 5 Surrounding Tissue Appearance: [place] and Macerated Surrounding Tissue Temp: Warm Drainage Amount: Large Drainage Description: Serosanguineous Drainage Odor: No Odor Lidocaine Applied Topically: 2% Jelly Right Heel: Bed Appearance: Beefy Red, Devitalized, Epithelial Tissue or Bridge, [place] and Yellow Percent of Wound Bed Granulated/Red: 90 Percent of Devitalized: 10 Length (cm): 3 Width (cm): 8 Depth (cm): 0.1 CM Sq: 24.000 Surrounding Tissue Appearance: Peeling and Dryness Surrounding Tissue Temp: Warm Drainage Amount: Large Drainage Description: Serosanguineous Drainage Odor: No Odor Lidocaine Applied Topically: 2% Jelly Right Ischium: Bed Appearance: Beefy Red, Bone Palpable, Devitalized, Epithelial Tissue or Bridge, [place] and Yellow Percent of Wound Bed Granulated/Red: 95 Percent of Devitalized: 5 Length (cm): 5 Width (cm): 5 Depth (cm): 5 CM Sq: 25.000 Undermining Position: 12-6:00 Undermining Depth: 1 Surrounding Tissue Appearance: Macerated Surrounding Tissue Temp: Warm Drainage Amount: Large Drainage Description: Serosanguineous Drainage Odor: No Odor Lidocaine Applied Topically: 2% Jelly Left Ischium: Bed Appearance: Beefy Red, Bone Palpable, Devitalized, [place] and Yellow Percent of Wound Bed Granulated/Red: 95 Percent of Devitalized: 5 Length (cm): 1.6 Width (cm): 1.6 Depth (cm): 3.5 CM Sq: 2.560 Undermining Position: 10-3:00 Undermining Depth: 3.5 Surrounding Tissue Appearance: Macerated Surrounding Tissue Temp: Warm Drainage Amount: Moderate Drainage Description: Serosanguineous Drainage Odor: No Odor Lidocaine Applied Topically: 2% Jelly Right Buttock: Bed Appearance: Devitalized, [place] and Yellow Percent of Wound Bed Granulated/Red: 95 Percent of Devitalized: 5 Length (cm): 1.5 Width (cm): 0.5 Depth (cm): 0.1 CM Sq: 0.750 Surrounding Tissue Appearance: [place] and Callous Surrounding Tissue Temp: Warm Drainage Amount: Small Drainage Description: Serosanguineous Drainage Odor: No Odor Lidocaine Applied Topically: 2% Jelly Right Lower Lateral Leg: Bed Appearance: Beefy Red, Devitalized, [place] and Yellow Percent of Wound Bed Granulated/Red: 10 Percent of Devitalized: 90 Length (cm): 0 Width (cm): 0 Depth (cm): 0 CM Sq: 0.000 Surrounding Tissue Appearance: Hyperpigmented Surrounding Tissue Temp: Warm Drainage Amount: None Drainage Description: Serosanguineous Drainage Odor: No Odor Lidocaine Applied Topically: 2% Jelly Right Lower Medial Leg: Bed Appearance: Devitalized, Epithelial Tissue or Bridge, [place] and Yellow Percent of Wound Bed Granulated/Red: [...] Diabetes mellitus type: type 2 Diabetes mellitus half-way insulin use:with half-way use Diabetes mellitus complication status: with skin [...] signed by MD Cathy Brar> 12/23/21 [address] [facility] Work Phone: 1(403) 412-305708-23-2022 Progress note Author Cathy Brar [facility] November 18, 2021 11:55am Note Date/Time November 18, 2021 11 :55am [facility] [address] [place] [address] Wound Center Provider Note Signed Patient: Ganga Stinson MR#: [id number] : 1960 Acct:[id number] Age/Sex: 61 / M Copies to: MD [...] Bed Appearance: Beefy Red, Bone Palpable, Devitalized, [place] and Yellow Percent of Wound Bed Granulated/Red: 75 Percent of Devitalized: 25 Length (cm): 3.5 Width (cm): 2.0 Depth (cm): 2.5 CM Sq: 7.000 Undermining Position: 360 (deepest at 3) Undermining Depth: 3.5 Surrounding Tissue Appearance: Hyperpigmented Surrounding Tissue Temp: Warm Drainage Amount: Large Drainage Description: Serosanguineous Drainage Odor: No Odor Lidocaine Applied Topically: 2% Jelly Right Heel: Bed Appearance: Devitalized, [place] and Yellow Percent of Wound Bed Granulated/Red: 1 Percent of Devitalized: 99 Length (cm): 1.6 Width (cm): 2.3 Depth (cm): 0.1 CM Sq: 3.680 Surrounding Tissue Appearance: Hyperpigmented Surrounding Tissue Temp: Warm Drainage Amount: Large Drainage Description: Serosanguineous Drainage Odor: No Odor Lidocaine Applied Topically: 2% Jelly Right Ischium: Bed Appearance: Beefy Red, Bone Palpable, Devitalized, Epithelial Tissue or Bridge, [place] and Yellow Percent of Wound Bed Granulated/Red: [...] Bed Appearance: Beefy Red, Bone Palpable, Devitalized, [place] and Yellow Percent of Wound Bed Granulated/Red: 90 Percent of Devitalized: 10 Length (cm): 2.0 Width (cm): 2.0 Depth (cm): 3.5 CM Sq: 4.000 Undermining Position: 9-11:00 Undermining Depth: 4.0 Surrounding Tissue Appearance: Hyperpigmented Surrounding Tissue Temp: Warm Drainage Amount: Moderate Drainage Description: Serosanguineous Drainage Odor: No Odor Lidocaine Applied Topically: 2% Jelly Right Buttock: Bed Appearance: Beefy Red, Devitalized, [place] and Yellow Percent of Wound Bed Granulated/Red: 95 Percent of Devitalized: 5 Length (cm): 2.4 Width (cm): 1.0 Depth (cm): 0.1 CM Sq: 2.400 Surrounding Tissue Appearance: Hyperpigmented Surrounding Tissue Temp: Warm Drainage Amount: Moderate Drainage Description: Serosanguineous Drainage Odor: No Odor Lidocaine Applied Topically: 2% Jelly Right Lower Lateral Leg: Bed Appearance: Beefy Red, Devitalized, [place] and Yellow Percent of Wound Bed Granulated/Red: 10 Percent of Devitalized: 90 Length (cm): 1.3 Width (cm): 1.4 Depth (cm): 0.1 CM Sq: 1.820 Surrounding Tissue Appearance: Hyperpigmented Surrounding Tissue Temp: Warm Drainage Amount: Moderate Drainage Description: Serosanguineous Drainage Odor: No Odor Lidocaine Applied Topically: 2% Jelly Right Lower Medial Leg: Bed Appearance: Black Dry, Devitalized, Epithelial Tissue or Bridge, [place] and Yellow Percent of Wound Bed Granulated/Red: [...] mellitus type: type 2 Diabetes mellitus terminal system operator insulin use:with half-way use Diabetes mellitus complication status: with skin [...] <Electronically signed by MD Cathy Brar> 11/18/[address] [place] [address] Work Phone: 1(828) 927-570807-26-2022 Progress note Author Cathy Brar [facility] October 21, 2021 11:44am Note Date/Time October 21, 2021 11:4 4am [facility] [address] [place] [address] Wound Center Provider Note Signed Patient: Ganga Stinson MR#: [id number] : 1960 Acct:[id number] Age/Sex: 61 / M Copies to: MD [...] Bed Appearance: Beefy Red, Bone Palpable, Devitalized, [place] and Yellow Percent of Wound Bed Granulated/Red: 75 Percent of Devitalized: 25 Length (cm): 4.2 Width (cm): 3.0 Depth (cm): 3.0 CM Sq: 12.600 Undermining Position: 360 (deepest at 3) Undermining Depth: 3.5 Surrounding Tissue Appearance: Hyperpigmented Surrounding Tissue Temp: Warm Drainage Amount: Large Drainage Description: Serosanguineous Drainage Odor: No Odor Lidocaine Applied Topically: 2% Jelly Right Heel: Bed Appearance: Devitalized, [place] and Yellow Percent of Wound Bed Granulated/Red: 50 Percent of Devitalized: 50 Length (cm): 2.3 Width (cm): 3.2 Depth (cm): 0.1 CM Sq: 7.360 Surrounding Tissue Appearance: Hyperpigmented Surrounding Tissue Temp: Warm Drainage Amount: Large Drainage Description: Serosanguineous Drainage Odor: No Odor Lidocaine Applied Topically: 2% Jelly Right Ischium: Bed Appearance: Beefy Red, Bone Palpable, Devitalized, Epithelial Tissue or Bridge, [place] and Yellow Percent of Wound Bed Granulated/Red: [...] Bed Appearance: Beefy Red, Bone Palpable, Devitalized, [place] and Yellow Percent of Wound Bed Granulated/Red: 90 Percent of Devitalized: 10 Length (cm): 3.0 Width (cm): 1.6 Depth (cm): 4.5 CM Sq: 4.800 Undermining Position: 9-11:00 Undermining Depth: 1.0 Surrounding Tissue Appearance: Hyperpigmented Surrounding Tissue Temp: Warm Drainage Amount: Moderate Drainage Description: Serosanguineous Drainage Odor: No Odor Lidocaine Applied Topically: 2% Jelly Right Buttock: Bed Appearance: Beefy Red, Devitalized, [place] and Yellow Percent of Wound Bed Granulated/Red: 80 Percent of Devitalized: 20 Length (cm): 2.2 Width (cm): 1.1 Depth (cm): 0.1 CM Sq: 2.420 Surrounding Tissue Appearance: Hyperpigmented Surrounding Tissue Temp: Warm Drainage Amount: Moderate Drainage Description: Serosanguineous Drainage Odor: No Odor Lidocaine Applied Topically: 2% Jelly Right Lower Lateral Leg: Bed Appearance: Beefy Red, Devitalized, [place] and Yellow Percent of Wound Bed Granulated/Red: 10 Percent of Devitalized: 90 Length (cm): 1.3 Width (cm): 1.4 Depth (cm): 0.1 CM Sq: 1.820 Surrounding Tissue Appearance: Hyperpigmented Surrounding Tissue Temp: Warm Drainage Amount: Moderate Drainage Description: Serosanguineous Drainage Odor: No Odor Lidocaine Applied Topically: 2% Jelly Right Lower Medial Leg: Bed Appearance: Black Dry, Devitalized, [place] and Yellow Percent of Wound Bed Granulated/Red: 80 Percent of Devitalized: 20 Length (cm): 1.6 Width (cm): 2.5 Depth (cm): 0.1 CM Sq: 4.000 Surrounding Tissue Appearance: Hyperpigmented Surrounding Tissue Temp: Warm Drainage Amount: Moderate Drainage Description: Serosanguineous Drainage Odor: No Odor Lidocaine Applied Topically: 2% Jelly Right Foot: Bed Appearance: Beefy Red, Devitalized, Epithelial Tissue or Bridge, [place] and Yellow Percent of Wound Bed Granulated/Red: [...] mellitus type: type 2 Diabetes mellitus terminal system operator insulin use:with half-way use Diabetes mellitus complication status: with skin [...] signed by MD Cathy Brar> 10/21/21 1144 [facility] Work Phone: [phone]) 800-549906-21-2022 Progress note Author Cathy Brar [facility] September 16, 2021 11:55am Note Date/Time September 16, 2021 11:5 1am [facility] [address] [place] [address] Wound Center Provider Note Signed Patient: Ganga Stinson MR#: [id number] : 1960 Acct:[id number] Age/Sex: 61 / M Copies to: MD [...] Wound/Ulcer Sacrum: Bed Appearance: Bone Palpable, Devitalized, [place] and Yellow Percent of Wound Bed Granulated/Red: [...] Heel: Bed Appearance: Black Moist, Brown, Devitalized, [place] and Yellow Percent of Wound Bed Granulated/Red: 95 Percent of Devitalized: 5 Length (cm): 3.4 Width (cm): 5.1 Depth (cm): 0.1 CM Sq: 17.340 Surrounding Tissue Appearance: Hyperpigmented Surrounding Tissue Temp: Warm Drainage Amount: Large Drainage Description: Serosanguineous Drainage Odor: No Odor Lidocaine Applied Topically: 2% Jelly Right Ischium: Bed Appearance: Beefy Red, Devitalized, Epithelial Tissue or Bridge, [place] and Yellow Percent of Wound Bed Granulated/Red: 90 Percent of Devitalized: 10 Length (cm): 5.1 Width (cm): 5.5 Depth (cm): 4 CM Sq: 28.050 Undermining Position: 1-3:00 Undermining Depth: 1.5 Surrounding Tissue Appearance: Hyperpigmented Surrounding Tissue Temp: Warm Drainage Amount: Large Drainage Description: Serosanguineous Drainage Odor: No Odor Lidocaine Applied Topically: 2% Jelly Left Ischium: Bed Appearance: Beefy Red, Bone Palpable, Devitalized, [place] and Yellow Percent of Wound Bed Granulated/Red: 90 Percent of Devitalized: 10 Length (cm): 3.9 Width (cm): 1.8 Depth (cm): 5 CM Sq: 7.020 Undermining Position: 9-11:00 Undermining Depth: 2.2 Surrounding Tissue Appearance: Hyperpigmented Surrounding Tissue Temp: Warm Drainage Amount: Moderate Drainage Description: Serosanguineous Drainage Odor: No Odor Lidocaine Applied Topically: 2% Jelly Right Buttock: Bed Appearance: Beefy Red, Devitalized, [place] and Yellow Percent of Wound Bed Granulated/Red: 99 Percent of Devitalized: 1 Length (cm): 2.3 Width (cm): 0.9 Depth (cm): 0.2 CM Sq: 2.070 Surrounding Tissue Appearance: Hyperpigmented Surrounding Tissue Temp: Warm Drainage Amount: Moderate Drainage Description: Serosanguineous Drainage Odor: No Odor Lidocaine Applied Topically: 2% Jelly Right Lower Lateral Leg: Bed Appearance: Beefy Red, Devitalized, [place] and Yellow Percent of Wound Bed Granulated/Red: 20 Percent of Devitalized: 80 Length (cm): 3.8 Width (cm): 2.3 Depth (cm): 0.1 CM Sq: 8.740 Surrounding Tissue Appearance: Hyperpigmented Surrounding Tissue Temp: Warm Drainage Amount: Moderate Drainage Description: Serosanguineous Drainage Odor: No Odor Lidocaine Applied Topically: 2% Jelly Right Lower Medial Leg: Bed Appearance: Black Dry, Devitalized, [place] and Yellow Percent of Wound Bed Granulated/Red: 75 Percent of Devitalized: 25 Length (cm): 2.5 Width (cm): 2.7 Depth (cm): 0.2 CM Sq: 6.750 Surrounding Tissue Appearance: Hyperpigmented Surrounding Tissue Temp: Warm Drainage Amount: Moderate Drainage Description: Serosanguineous Drainage Odor: No Odor Lidocaine Applied Topically: 2% Jelly Right Foot: Bed Appearance: Beefy Red, Devitalized, Epithelial Tissue or Bridge, [place] and Yellow Percent of Wound Bed Granulated/Red: [...] Diabetes mellitus type: type 2 Diabetes mellitus half-way insulin use:with half-way use Diabetes mellitus complication status: with skin [...] <Electronically signed by MD Cathy Brar> 09/16/21 8955 [facility] Work Phone: 1(565) 898-183505-03-2022 Progress note Author Cathy Brar [facility] July 29, 2021 12:33pm Note Date/Time July 29, 2021 12:33p m [facility] [address] [place] [address] Wound Center Provider Note Signed Patient: Ganga Stinson MR#: [id number] : 1960 Acct:[id number] Age/Sex: 61 / M Copies to: MD [...] down Wound/Ulcer Sacrum: Bed Appearance: Bone Palpable, [place] and Yellow Percent of Wound Bed Granulated/Red: 50 Percent of Devitalized: 50 Length (cm): 2.6 Width (cm): 2.0 Depth (cm): 3.0 CM Sq: 5.200 Undermining Position: 9-4 (deepest at 4) Undermining Depth: 5.4 Surrounding Tissue Appearance: Hyperpigmented Surrounding Tissue Temp: Warm Drainage Amount: Large Drainage Description: Serosanguineous Drainage Odor: No Odor Lidocaine Applied Topically: 2% Jelly Right Heel: Bed Appearance: Black Moist, Brown, [place] and Yellow Percent of Wound Bed Granulated/Red: 15 Percent of Devitalized: 85 Length (cm): 6.0 Width (cm): 9.0 Depth (cm): 0.5 CM Sq: 54.000 Surrounding Tissue Appearance: Hyperpigmented Surrounding Tissue Temp: Warm Drainage Amount: Large Drainage Description: Serosanguineous Drainage Odor: No Odor Lidocaine Applied Topically: 2% Jelly Right Ischium: Bed Appearance: Beefy Red, Epithelial Tissue or Bridge, [place] and Yellow Percent of Wound Bed Granulated/Red: 50 Percent of Devitalized: 50 Length (cm): 9.3 Width (cm): 7.9 Depth (cm): 5.2 CM Sq: 73.470 Undermining Position: 360 (deepest at 7) Undermining Depth: 2.3 Surrounding Tissue Appearance: Hyperpigmented Surrounding Tissue Temp: Warm Drainage Amount: Large Drainage Description: Serosanguineous Drainage Odor: No Odor Lidocaine Applied Topically: 2% Jelly Left Ischium: Bed Appearance: [place] and Yellow Percent of Wound Bed Granulated/Red: 50 Percent of Devitalized: 50 Length (cm): 1.7 Width (cm): 1.5 Depth (cm): 3.5 CM Sq: 2.550 Undermining Position: 3-8 Undermining Depth: 4.5 Surrounding Tissue Appearance: Hyperpigmented Surrounding Tissue Temp: Warm Drainage Amount: Moderate Drainage Description: Serosanguineous Drainage Odor: No Odor Lidocaine Applied Topically: 2% Jelly Right Buttock: Bed Appearance: Beefy Red, [place] and Yellow Percent of Wound Bed Granulated/Red: 75 Percent of Devitalized: 25 Length (cm): 6.6 Width (cm): 2.0 Depth (cm): 0.1 CM Sq: 13.200 Surrounding Tissue Appearance: Hyperpigmented Surrounding Tissue Temp: Warm Drainage Amount: Moderate Drainage Description: Serosanguineous Drainage Odor: No Odor Lidocaine Applied Topically: 2% Jelly Right Lower Lateral Leg: Bed Appearance: Beefy Red, [place] and Yellow Percent of Wound Bed Granulated/Red: 50 Percent of Devitalized: 50 Length (cm): 1.8 Width (cm): 1.5 Depth (cm): 0.1 CM Sq: 2.700 Surrounding Tissue Appearance: Hyperpigmented Surrounding Tissue Temp: Warm Drainage Amount: Moderate Drainage Description: Serosanguineous Drainage Odor: No Odor Lidocaine Applied Topically: 2% Jelly Right Lower Medial Leg: Bed Appearance: Black Dry, [place] and Yellow Percent of Wound Bed Granulated/Red: [...] Diabetes mellitus type: type 2 Diabetes mellitus half-way insulin use:with terminal system operator use Diabetes mellitus complication status: with [...] will attempt to obtain that note from engine research engineer in [place]. See Instructions for Orders See Instructions for Orders See Wound Discharge Instructions for Orders: Patient may require serial debridement to remove devitalized tissue and encourage granulation. Dictated By: Cathy Brar MD DD/ [id number] Signed By: <Electronically signed by MD Cathy Brar> 07/29/21 1233 [facility] Work Phone: Evaluation + Plan note No data available for this section [facility] evaluation note* Diagnosis Onset Date Resolution Status Right hip pain acute Stage IV pressure ulcer of sacral region acute Unstageable pressure ulcer of right heel acute Cauda equina spinal cord injury chronic Diabetes chronic Pressure ulcer of left hip, stage 3 resolved Pressure ulcer of right hip, stage 3 resolved [facility] Work Phone: Evaluation note* Diagnosis Neurogenic bladder Neurogenic bladder, NOS documented in this encounter [facility] Work Phone: evaluation note* Diagnosis Neurogenic bladder Neurogenic bladder, NOS documented in this encounter [employer] Phone: [email or web address] note* Diagnosis Hyperkalemia- Primary Hyperpotassemia Acute kidney [...] of neurogenic bladder documented in this encounter [employer] Phone: [email or web address] note* Diagnosis Acute kidney injury (HCC) Acute kidney failure, unspecified Iron deficiency anemia, unspecified iron deficiency anemia type documented in this encounter [employer] Phone: evaluation note* Diagnosis Onset Date Resolution [...] awareness documented in this encounter [facility] [employer] note* Diagnosis Cellulitis of left foot- Primary Ulcer of left ankle, with necrosis of bone (HCC) ([facility]) Diabetes mellitus due to underlying condition with diabetic polyneuropathy, unspecified whether terminal system operator insulin use ([facility]/HCC) Acute complete paraplegia ([facility]/HCC) Acute osteomyelitis of left fibula ([facility]/HCC) Foot ulcer, right, with fat layer exposed ([facility]) Venous insufficiency Unspecified venous (peripheral) insufficiency documented in this encounter [facility] HealthcareEvaluation note* Diagnosis Abscess of toe, right- Primary documented in this encounter [facility] HealthcareEvaluation note* Diagnosis Onset Date Resolution Status [id number] acute Foot ulcer with fat layer exposed acute Stage IV pressure ulcer of right buttock acute 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 buttock, stage 3 chronic [facility] Work Phone: Evaluation note* Diagnosis Type 2 diabetes mellitus with hyperglycemia, without long-term current use of insulin ([facility]/HCC)- Primary Dyslipidemia (CMS/HCC) Other and unspecified hyperlipidemia Benign hypertension (CMS/HCC) Essential hypertension, benign Major depressive disorder, recurrent episode, mild (HCC) ([facility]/HCC) Major depressive disorder, recurrent episode, mild Incontinence overflow, urine Overflow incontinence Chronic superficial 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 Type 2 diabetes mellitus with hyperglycemia, without long-term current use of insulin ([facility]/HCC)- Primary Benign hypertension (CMS/HCC) Essential hypertension, benign Major depressive disorder, recurrent episode, mild (HCC) (CMS/HCC) Major depressive disorder, recurrent episode, mild Incontinence overflow, urine Overflow incontinence Pruritus Unspecified pruritic disorder Chronic kidney disease, stage 3a (HCC) ([facility]) Encounter for long-term (current) use of medications Encounter for long-term (current) use of other medications Cauda equina syndrome ([facility]) Cauda equina syndrome without mention of neurogenic bladder Urticaria- Primary Unspecified urticaria documented in this encounter [facility] HealthcareEvaluation note* Diagnosis Type 2 [...] disorder Chronic kidney disease, stage 3a (HCC) ([facility]) Encounter for long-term (current) use of medications Encounter for long-term (current) use of other medications Cauda equina syndrome ([facility]/HCC) Cauda equina syndrome without mention of neurogenic bladder Urticaria- Primary Unspecified urticaria Pruritus Unspecified pruritic disorder documented in this encounter [facility] HealthcareEvaluation note* Diagnosis Type 2 diabetes mellitus with hyperglycemia, without long-term current use of insulin ([facility])- Primary Benign hypertension ([facility]) Essential hypertension, benign Major depressive disorder, recurrent episode, mild (HCC) ([facility]) Major depressive disorder, recurrent episode, mild Incontinence overflow, urine Overflow incontinence Pruritus Unspecified pruritic disorder Chronic kidney disease, stage 3a (HCC) ([facility]) Encounter for long-term (current) use of medications Encounter for long-term (current) use of other medications Cauda equina syndrome ([facility]) Cauda equina syndrome without mention of neurogenic bladder documented in this encounter [facility] HealthcareEvaluation note* Diagnosis Type 2 diabetes mellitus with hyperglycemia, without long-term current use of insulin ([facility])- Primary Dyslipidemia ([facility]) Other and unspecified hyperlipidemia Benign hypertension ([facility]) Essential hypertension, benign Major depressive disorder, recurrent episode, mild (HCC) ([facility]) Major depressive disorder, recurrent episode, mild Incontinence overflow, urine Overflow incontinence Chronic superficial 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 Type 2 diabetes mellitus with hyperglycemia, without long-term current use of insulin ([facility])- Primary Benign hypertension ([facility]) Essential hypertension, benign Major depressive disorder, recurrent episode, mild (HCC) ([facility]) Major depressive disorder, recurrent episode, mild Incontinence overflow, urine Overflow incontinence Pruritus Unspecified pruritic disorder Chronic kidney disease, stage 3a (HCC) ([facility]) Encounter for long-term (current) use of medications Encounter for long-term (current) use of other medications Cauda equina syndrome ([facility]) Cauda equina syndrome without mention of neurogenic bladder Urticaria- Primary Unspecified urticaria Type 2 diabetes mellitus with hyperglycemia, without long-term current use of insulin ([facility])- Primary Benign hypertension ([facility]) Essential hypertension, benign Major depressive disorder, recurrent episode, mild (HCC) ([facility]) Major depressive disorder, recurrent episode, mild Incontinence overflow, urine Overflow incontinence Chronic superficial 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 Urticaria Unspecified urticaria Pruritus Unspecified pruritic disorder Annual physical exam Routine general medical examination at a health care facility Chronic kidney disease, stage 3a (HCC) ([facility]) Class 2 severe obesity due to excess calories with serious comorbidity and body mass index (BMI) of 36.0 to 36.9 in adult ([facility]) Type 2 diabetes mellitus with other specified complication Hyperlipidemia, unspecified (CMS/HCC) Pressure ulcer of right heel, unstageable ([facility]) Type 2 diabetes mellitus with other skin ulcer (CODE) Paraplegia, unspecified Diabetes mellitus due to underlying condition with diabetic polyneuropathy ([facility]) documented in this encounter [facility] HealthcareEvaluation note* Diagnosis Type 2 diabetes [...] pruritic disorder Chronic kidney disease, stage 3a ([facility]) Encounter for long-term (current) use [...] care facility Chronic kidney disease, stage 3a ([facility]) Class 2 severe obesity due to excess calories with serious comorbidity and body mass index (BMI) of 36.0 to 36.9 in adult ([facility]) Type 2 diabetes mellitus with other specified complication (HCC) Hyperlipidemia, unspecified Pressure ulcer of right heel, unstageable (CMS-HCC) Type 2 diabetes mellitus with other skin ulcer (CODE) (HCC) Paraplegia, unspecified (HCC) Diabetes mellitus due to underlying condition with diabetic polyneuropathy (HCC) Type 2 diabetes mellitus with hyperglycemia, without long-term current use of insulin (HCC) documented in this encounter [facility] HealthcareEvaluation note* Diagnosis Type 2 [...] pruritic disorder Chronic kidney disease, stage 3a ([facility]) Encounter for long-term (current) use of medications Encounter for long-term (current) use of other medications Cauda equina syndrome ([facility]) Cauda equina syndrome without mention [...] care facility Chronic kidney disease, stage 3a ([facility]) Class 2 severe obesity due to excess calories with serious comorbidity and body mass index (BMI) of 36.0 to 36.9 in adult ([facility]) Type 2 diabetes mellitus with other specified complication (HCC) Hyperlipidemia, unspecified Pressure ulcer of right heel, unstageable ([facility]) Type 2 diabetes mellitus with other skin ulcer (CODE) ([facility]) Paraplegia, unspecified (HCC) Diabetes mellitus due to underlying condition with diabetic polyneuropathy ([facility]) Primary hypertension Unspecified essential hypertension Benign hypertension Essential hypertension, benign Type 2 diabetes mellitus with hyperglycemia, without long-term current use of insulin (HCC) Dyslipidemia Other and unspecified hyperlipidemia documented in this encounter [facility] HealthcareHospital Discharge instructions Additional Instructions [...] operative site FOLLOW UP Phone numbers: Office [phone] [facility] Work Phone: Hospital Discharge instructions No data available for this section [facility] Hospital Discharge instructions Additional Instructions Wound/Ulcer Instructions/Orders Left Ischium: Dressing: Cleanse with Dakins or saline, saline on 4X4 gauze packing or kerlix, ABD, Kerlix, drawtex, Secure/wrap: Skin prep prior to adhesive [facility] [employer] Work Phone: InstructionsNot on filedocumented in this encounter [facility] System[facility] note No data available for this section [facility] reason for referral (narrative)No reason for referral information [facility] Work Phone: Summary Purpose Family History No [...] Fibula Osteomyelitis, Diabetes, Ulcerative Reason for Visit [id number] Foot ulcer with fat layer exposed 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 Cauda equina spinal cord injury Pressure ulcer of left buttock, stage 3 Chief Complaint Open Wound Left Fibula Osteomyelitis, Diabetes, Ulcerative Unknown Reason for Visit [id number] Foot ulcer with fat layer exposed Stage [...] EKG 12 Lead Angeles Nagy MD [address], [address] [place] [address] Referral ID Status Reason Start Date Expiration Date V isits Requested Visits Authorized [id number] Pending Review 06/22/2022 06/22/2023 1 1 Specialty Diagnoses / Procedures Referred By Contac t Referred To Contact Radiology Diagnoses Cauda equina syndrome (HCC) Neurogenic bladder Urinary retention Urinary incontinence without sensory awareness Procedures US RENAL COMPLETE Ashlee Erwin, SKIN PILER - INTELLIGENCE OFFICER BASIC [address] [place] [address] Referral ID Status Reason Start Date Expiration Date Visits Re quested Visits Authorized [id number] Open 09/18/2022 09/18/2023 1 1 Additional Source Comments (unrecognized sect ion and content) No Status Records FoundNo Status Records FoundNo Status Records FoundNo Status Records FoundNo Status Records FoundNo Status Records FoundNo Status Records Found INFORMATION SOURCE (unrecogn ized section and content) DATE CREATED AUTHOR 09/21/2017 [facility] DATE CREATED AUTHOR AUTHOR'S ORGANIZ ATION 04/08/2022 [facility] [facility] DATE CREATED AUTHOR AUTHOR'S ORGANIZ ATION 09/27/2022 [facility] DATE CREATED AUTHOR AUTHOR'S ORGANIZ ATION 10/22/2023 [facility] DATE CREATED AUTHOR AUTHOR'S ORGANIZ ATION 08/03/[address] [facility] EPIC DATE CREATED AUTHOR AUTHOR'S ORGANIZ ATION 12/06/2024 [facility] DATE CREATED AUTHOR AUTHOR'S ORGANIZ ATION 12/09/2024 [facility] (unrecognized sec tion and content) [...] Active Cathy Brar MD Attending Provider Active 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 Relationship Specialty Start Date End Date Fidel Abbott MD PCP - General 07/03/15 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 Relationship Specialty Start Date End Date Fidel Abbott MD PCP - General 07/03/15 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 Relationship Specialty Start Date End Date Fidel Abbott MD PCP - General 07/03/15 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 Relationship Specialty Start Date End Date Fidel Abbott MD PCP - General 07/03/15 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 Relationship Specialty Start Date End Date Fidel Abbott MD PCP - General 07/03/15 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 Relationship Specialty Start Date End Date Fidel Abbott MD PCP - General Family Medicine 12/10/22 Fidel Abbott MD [address] [place] [address] [facility] 03/29/23 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 Relationship Specialty Start Date End Date Fidel Abbott MD [facility] 12/10/22 Fidel Abbott MD [address] [place] [phone] [facility] 03/29/23 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 Relationship Specialty Start Date End Date Fidel Abbott MD [address] [place] [address] [facility] 03/29/23 Fidel Abbott MD [address] [place] [address] [facility] 05/12/23 Team Status: Inactive Member Role Status [...] July 08, 2023 End: July 08, 2023 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 Relationship Specialty Start Date End Date Fidel Abbott MD [facility] General 12/28/16 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 Relationship Specialty Start Date End Date Fidel Abbott MD [address] [place] [address] PCP - [employer] 02/26/23 Fidel Abbott MD [address] [place] [phone] PCP - General Family Medicine 11/18/23 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 Relationship Specialty Start Date End Date Fidel Abbott MD [address] [place] [phone] PCP - [employer] 02/26/23 Fidel Abbott MD [address] [place] [phone] PCP - General Family Medicine 11/18/23 Team [...] Provider Active S tart: February 08, 2024 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 Relationship Specialty Start Date End Date Fidel Abbott MD [address] [place] [phone] PCP - [employer] 02/26/23 Fidel Abbott MD [address] [place] [phone] PCP - General Family Medicine 11/18/23 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 Relationship Specialty Start Date End Date Fidel Abbott MD [address] [place] [phone] PCP - [employer] 02/26/23 Fidel Abbott MD [address] [place] [phone] PCP - General Family Medicine 11/18/23 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 Relationship Specialty Start Date End Date Fidel Abbott MD [address] [place] [phone] PCP - [employer] 02/26/23 Fidel Abbott MD [address] [place] [phone] PCP - General Family Medicine 11/18/23 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 Relationship Specialty Start Date End Date Fidel Abbott MD PCP - General 12/28/16 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 Relationship Specialty Start Date End Date Fidel Abbott MD PCP - General 12/28/16 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 Relationship Specialty Start Date End Date Fidel Abbott MD [address] [place] [phone] PCP - [employer] 02/26/23 Fidel Abbott MD [address] [place] [phone] PCP - General Family Medicine 11/18/23 Fidel Abbott MD [address] [place] [phone] PCP - [employer] Reach 05/05/24 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 Relationship Specialty Start Date End Date Fidel Abbott MD [address] [place] [phone] PCP - [employer] 02/26/23 Fidel Abbott MD [address] [place] [phone] PCP - General Family Medicine 11/18/23 Fidel Abbott MD [address] [place] [phone] PCP - A[employer] Reach 05/05/24 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 Relationship Specialty Start Date End Date Fidel Abbott MD [address] [place] [phone] PCP - [employer] 02/26/23 Fidel Abbott MD [address] [place] [phone] PCP - General Family Medicine 11/18/23 Fidel Abbott MD [address] [place] [phone] PCP - ACO Reach 05/05/24 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 Relationship Specialty Start Date End Date Fidel Abbott MD [address] [place] [phone] PCP - General Family Medicine 11/18/23 Fidel Abbott MD [address] [place] [address] PCP - ACO Reach 05/05/24 Alvin Gonzalez [...] August 30, 2024 End: August 30, 2024 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 Relationship Specialty Start Date End Date Fidel Abbott MD [address] [place] [phone] PCP - General Family Medicine 11/18/23 Team [...] October 02, 2024 End: October 02, 2024 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 Relationship Specialty Start Date End Date Fidel Abbott MD [address] [place] [phone] PCP - General Family Medicine 11/18/23 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 Relationship Specialty Start Date End Date Fidel Abbott MD [address] [place] [phone] PCP - General Family Medicine 11/18/23 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 Relationship Specialty Start Date End Date Fidel Abbott MD [address] [place] [place] [address] PCP - General Family Medicine 11/18/23 Goals [...] kidney injury (HCC) Matias Garcia MD [address] [place] [address] [facility] [address] [place] [address] Referral ID Status Reason Start Date Expiration Date Visits Re quested Visits Authorized [id number] 1 1 Specialty Diagnoses / Procedures Referred By Farzaneh t Referred To Contact Radiology Diagnoses Cauda equina syndrome (HCC) Neurogenic bladder Urinary retention Urinary incontinence without sensory awareness Procedures US RENAL COMPLETE Ashlee Erwin, SKIN PILER - INTELLIGENCE OFFICER BASIC [address] [place] [address] Referral ID Status Reason Start Date Expiration Date Visits Re quested Visits Authorized [id number] Open 09/18/2022 09/18/2023 1 1 Reason Comments [...] Valdez RN) 0812 (MAR Hold - Provider: [facility] [employer] - Reason: Unreviewed Transfer Orders)0900 (Automatically Held - Provider: Cammy Autoh[employer])0959 ([facility] Unhold - Provider: Dragan Voss RN)1233 (Given - Provider: June Rocio) citalopram (CELEXA) tablet 40 mg 40 mg, Oral, DAILY, First dose on Wed06/23/22 at 0900, Until Discontinued 0907 (Given - Provider: Heri Valdez RN) 0723 (Given - Provider: Heri Valdez RN) 0812 (MAR Hold - Provider: [facility] [employer] - Reason: Unreviewed Transfer Orders)0900 (Automatically Held - Provider: Cammy [employer]oh[employer])0959 ([facility] Unhold - Provider: Dragan [...] June Rocio)2045 (Due - Provider: Linda Ibrahim [facility]) fenofibrate (TRIGLIDE) tablet 160 mg 160 mg, [...] been cleared of remaining blood product. 0812 ([facility] Hold - Pro vider: [facility] [employer] - Reason: Unreviewed Transfer Orders)0959 ([facility] Unhold - Provider: Dragan Voss RN) acetaminophen (TYLENOL) suppository 650 mg(Linked Group 1) 650 mg, Rectal, EVERY 6 HOURS PRN, Starting on Wed06/22/22 at 2017, Until Discontinued, Pain Mild (1-3), Fever, For temp greater than 100.4 F (38 C), Administer if oral route cannot be used. 0812 ([facility] - Pro vider: [facility] [employer] - Reason: Unreviewed Transfer Orders)0959 ([facility] Unhold - Provider: Dragan Voss RN) acetaminophen (TYLENOL) tablet 650 mg(Linked Group 1) 650 mg, Oral, EVERY 6 HOURS PRN, Starting on Wed06/22/22 at 2017, Until Discontinued, Pain Mild (1-3), Fever, For temp greater than 100.4 F (38 C), Maximum dose of acetaminophen is 4000 mg from all sources in 24 hours. 0812 ([facility] - Pro vider: [facility] [employer] - Reason: Unreviewed Transfer Orders)0959 ([facility] Unhold - Provider: Dragan Voss RN) ondansetron (ZOFRAN) injection 4 mg(Linked Group 2) 4 mg, IntraVENous, EVERY 6 HOURS PRN, Starting on Wed06/22/22 at 2017, Until Discontinued, Nausea, Vomiting, Administer if oral route cannot be used. 0812 ([facility] Hold - Pro vider: [facility] [employer] - Reason: Unreviewed Transfer Orders)0959 ([facility] Unhold - Provider: Dragan Voss RN) ondansetron (ZOFRAN-ODT) disintegrating tablet 4 mg(Linked Group 2) 4 mg, Oral, EVERY 8 HOURS PRN, Starting on Wed06/22/22 at 2017, Until Discontinued, Nausea, Vomiting 0812 ([facility] Hold - Pro vider: [facility] [employer] - Reason: Unreviewed Transfer Orders)0959 ([facility] Unhold - Provider: Dragan Voss RN) polyethylene glycol (GLYCOLAX) packet 17 g 17 g, Oral, DAILY PRN, Starting on Wed06/22/22 at 2017, Until Discontinued, Constipation, First line therapy for constipation 0812 (MAY Hold - Pro vider: [facility] [employer] - Reason: Unreviewed Transfer Orders)0959 ([facility] Unhold - Provider: Dragan Voss RN) sodium chloride flush 0.9 % injection 10 mL 10 mL, IntraVENous, PRN, Starting on Wed06/22/22 at 2017, Until Discontinued, Line Care, After every IV line use 0812 (MAY Hold - Pro vider: [facility] [employer] - Reason: Unreviewed Transfer Orders)0959 ([facility] Unhold - Provider: Dragan [...] BE BASED ON THE PRIMARY CLINICAL RECORDS. [facility]. provides no warranty or guarantee of the accuracy or completeness of information in this document.
== END 2025-01-03 09:41 | disposition home or self-care (01) ==
LOC: WC 09:40
PROVIDERS: PCP Family Medicine; Visit Provider Podiatrist Foot & Ankle Surgery
DX: L97.813 Non-pressure chronic ulcer of other part of right lower leg with necrosis of muscle (principal); L89.893 Pressure ulcer of other site, stage 3; L89.624 Pressure ulcer of left heel, stage 4
CPT/HCPCS: G0463

== ENCOUNTER 2025-01-12 12:30 | Outpatient (OUT) | payer BC, MEDICARE, SELFPAY ==
--- OUTSIDE RECORDS SUMMARY | 2025-01-15 09:40 | XMS_ITS | CCD ---
Author Organization [facility] Care Team Providers Care Truck Manager Name Role Phone WESTONMICHAELA Unavailable Unavailable NADERER, FIDEL LIEBERMAN Unavailable Unavailabl e AOUAD, THIAGO Sy Unavailable Unavailable BLOOD, GANGA Gutiérrez Unavailable Unavailable BRAMBILA, JAI Chowdhury Unavailable Unavailable SCHNICATHYCRITICAL POWER TECHNICIAN, WILLIAM Unavailable Unavaila ble SHASHA, KHADAR [...] NADERER, DR FIDEL Tellez Primary Care Unavailable [place], DR KHADAR Edwards Consulting Unavailable BRAR, DR CATHY Edwards Consulting Unavailable MD Fidel Abbott Primary Care Provider MD Cathy Brar Attending Provider Fidel Abbott MD Primary Care Provider MD Fidel Abbott Primary Care Provider [phone] MD Cathy Brar Attending Provider [phone] Fidel Abbott MD Primary Care Provider SHELLY [...] Consulting Unavailable MILLY, KATERINA Grijalva Consulting Unavailable KATYJANUARY, FIDLE LUISANA Primary Care Unavailabl e LILO, ANGELES Referring Unavailable NADERER, FIDEL RIOSONY Primary Care Unavailabl e RIP, ASHLEE Merritt Referring Unavailable KATYEREFIDEL Christie Primary Care Physician Milena NAZARIO, Fidel Primary Care Provider Fiedl Abbott MD Unavailable Fidel Abbott MD Primary Care Provider MD Fidel Abbott Primary Care Provider MD Cathy Brar Attending Provider CRISTIANA Bah Attending Provider CRITSIANA Bahena Attending Provider Khadar Guerrero Referring Unavailable MILENA, FIDEL Primary Care Unavailable FIDEL ABBOTT Referring Unavailable Fidel Abbott MD Primary Care Provider Fidel Abbott MD Unavailable Milena NAZARIO, Fidel Primary Care Provider Milena NAZARIO, Fidel Primary Care Provider Nina River MD Attending Provider Cathy Brar MD Attending Provider [phone] Cathy Brar MD Attending Provider Fidel Abbott MD Primary Care Provider Fidel Abbott MD Unavailable FIDEL ABBOTT Attending Unavailable MILENA, FIDEL Attending Unavailable MILENA, FIDEL Attending Unavailable Alvin Gonzalez MA Unavailable Unavailable Fidel Abbott MD Primary Care Provider [phone] Maykel NAZARIO, Cathy Attending Provider Latha CAICEDO-C, Tami Christie Attending Provider Aleta, Nina Attending Unavailable Aleta, Nina Admitting Unavailable Naderer, Fidel Primary Care Unavailable Naderer, Fidel Primary Care Unavailable Brar, Cathy Attending Unavailable Maykel, Cathy Admitting Unavailable Naderer, Fidel Primary Care Unavailable Maykel, Cathy Attending Unavailable Maykel, Cathy Admitting Unavailable Brar, Cathy Admitting Unavailable Naderer, Fidel Primary Care Unavailable Maykel, Cathy Attending Unavailable Jesusita Navarro Attending Unavailabl e Langenberg, Jesusita Sy Admitting Unavailabl e Naderer, Fidel Primary Care Unavailable Jovanny VILLA Attending Unavailable JEROD CHRITSY Attending Unavailab le Allergies Allergy Classification Reported Allergen(s) Allergy Type Date of Onset Reaction(s) Facility (11 sources) Vancomycin; Translations: [VANCOMYCIN] Drug Allergy 6 Shut kidneys down [facility] Repository (20 sources) Vancomycin Drug Allergy 6 Other, Unknown, Other (See Comments) [facility] (20 sources) omadacycline; Translations: [omadacycl] Drug allergy 3 Renal pain (finding) [facility] (8 sources) ferrous sulfate; Translations: [ferrous sulfate] Drug Allergy 3 Itching [facility] (1 source) Vancomycin Drug Allergy 5 [facility] Repository Medications Current Medications Medication Drug [...] procedure, # 2 tab(s), Refills(s) 0, Pharmacy: [facility] 1429, 180, cm, 11/09/22 [...] Called to pharmacy 09/09/2021 polyethylene glycol 3350 79201 mg powder for oral solution (1 source) Osmotic Laxative Start: 06-22-2022 17 g, Oral, D AILY PRN, Starting on Wed06/22/22 at 2018, Until Discontinued, Constipation First line therapy for constipation polyethylene glycol 3350 195888 mg / potassium chloride 2970 mg / sodium bicarbonate 6740 mg / sodium chloride 5860 mg / sodium sulfate 91296 mg powder for oral solution (1 source) [...] GM/60ML suspension 45 g sodium zirconium cyclosilicate 53674 mg powder for oral suspension (1 source) [...] 10:21am Start: 12-07-2016 End: 12-08-2016 [place]actrim Discontinued [facility] [place] 12:00am December 08, 2016 2:50pm Start: 12-07-2016 End: 12-08-2016 Bactrim Discontinued [facility] [place] 11:00pm December 08, 2016 1:50pm [...] 1 01-07-2017 Episodic Other aftercare (1 source) meterman (current) use of insulin; Translations: [meterman (current) use of insulin] Onset: 5 Episodic [...] of 36.0 to 36.9 in adult ([facility] Onset: 5 07-31-2024 Chronic Other screening for [...] Acute and unspecified renal failure (16 sources) [id number] renal failure; Translations: [Acute kidney failure, unspecified] [...] current use of drug therapy; Translations: [Other group home (current) drug therapy] Onset: 11-18-2023 11-18-2023 Episodic Other aftercare (5 sources) Patient encounter status; Translations: [Other director long term care (current) drug therapy] Onset: 11-18-2023 11-18-2023 Episodic [...] Facility Patient Letter FTon 2024 Patient Letter [facility] Patient Letter [facility] December 07, 2024 GANGA STINSON [address] [place] [address] : 1960 Dear Mr. Ganga Stinson, [facility], Dr. Jovanny Villa office has been trying to reach you concerning scheduling your annual bladder scope (cystoscopy) and urethral dilation at the [facility]. We have left several messages without a response. Please call the office as soon as possible so we can get you scheduled and continue to provide you with quality care. Sincerely, Jovanny Villa M.D., F.A.C.S. [facility] [address] [place], [place] [address] , option #3 [facility] Aerobic Cultureon 10-02-2024 Aerobic Culture Comment [...] RESISTANT TO ALL B-LACTAM DRUGS. PERFORMED BY: [facility] [address] [place] [address] PATHOLOGIST FEATHER STITCHER LEXA ELLIOTT M.D. Normal [facility] Comment on above: Performed By: #### A ERC #### [address] Basic Metabolic Panelon 07-0 Creatinine Clr Calc Pharmacy 54.42 Normal [facility] Comment on above: Result Comment: PERF ORMED BY: [place] [address] PATHOLOGIST FEATHER STITCHER LEXA ELLIOTT M.D. Performed By: #### C BC, BMP #### [address] GFR/1.73 sq M.predicted MDRD (S/P/Bld) [Vol rate/Area] 45.056 mL/min/{1.73_m2} Normal [facility] Comment on above: Performed By: #### C BC, BMP #### [address] Basophils [#/volume] in Bloo d by Automated countOrdered By: Rafi Cai on 10-02-2024 Basophils (Bld) [#/Vol] 0.1 10*3/uL Normal 0.0-0.2 [facility] Comment on above: Result Comment: PERF ORMED BY: [place] [address] PATHOLOGIST FEATHER STITCHER LEXA ELLIOTT M.D. Performed By: #### C BC, BMP #### [place] [address] [place] Basophils/100 leukocytes in Blood by Automated countOrdered By: Rafi Cai on 10-02-2024 Basophils/100 WBC (Bld) 0.6 % Normal . [facility] Comment on above: Performed By: #### C BC, BMP #### [address] Calcium [Mass/volume] in Ser um or PlasmaOrdered By: Rafi Cai on 10-02-2024 Calcium [Mass/Vol] 8.3 mg/dL Low 8.6-10.3 [facility] Comment on above: Performed By: #### C CHINTAN, BMP #### [address] Capillary blood glucose linda urement by glucometer (mass/volume)Ordered By: Cathy Brar on 10-02-2024 Glucose [Mass/Vol] 74 mg/dL Normal [facility] Comment on above: Random Glucose Refer ence Range is dependent on time and content of last meal. Glucose of more than 200 mg/dL in a nonstressed, ambulatory subject supports the diagnosis of Diabetes Mellitus. Result Comment: [place] [facility] Glucose Reference Range is dependent on time and content of last meal. Glucose of more than 200 mg/dL in a nonstressed, ambulatory subject supports the diagnosis of Diabetes Mellitus. PERFORMED BY: [place] [address] PATHOLOGIST FEATHER STITCHER LEXA ELLIOTT M.D. Performed By: #### G BHARATI #### Point of Care testing , Carbon dioxide, total [Moles /volume] in Serum or PlasmaOrdered By: Rafi Cai on 10-02-2024 CO2 [Moles/Vol] 24.7 mmol/L Normal 21.0-31.0 [facility] Comment on above: Performed By: #### C CHINTAN, BMP #### [address] Chloride [Moles/volume] in S tremayne or PlasmaOrdered By: Rafi Cai on 10-02-2024 Chloride [Moles/Vol] 109 mmol/L High 98-107 [facility] Comment on above: Performed By: #### C BC, BMP #### [address] Complete Blood Count Auto Di ffon 10-02-2024 Mean Corpuscular HGB Conc 32.2 g/dL Low 32.5-35.6 [facility] Comment on above: Performed By: #### C CHINTAN, BMP #### [address] NRBC% 0.0 /100{WBC} Normal 0-0.5 [facility] Comment on above: Performed By: #### C BC, BMP #### [facility] [address] White Blood Count 13.7 [CFU]/mL High 4.1-10.5 [facility] Comment on above: Performed By: #### C BC, BMP #### [facility] [address] Creatinine [Mass/volume] in Serum or PlasmaOrdered By: Rafi Cai on 10-02-2024 Creatinine [Mass/Vol] 1.69 mg/dL High 0.70-1.30 [facility] Comment on above: Performed By: #### C BC, BMP #### [facility] [address] ECG 12 lead ECGon 10-02-2024 ECG 12 lead ECG [facility] Main [place] [address] [place] [address] Electrocardiograph Report Signed Patient: Ganga Stinson MR#: [id number] : 1960 Acct:[id number] Age/Sex: 64 / M ADM Date: 10/02/24 Loc: [place] Room: Type: [facility] Attending Dr: Cathy Brar MD Ordering Provider: [...] change was found Confirmed by Jese Whitley ([id number]) on 10/02/2024 4:24:29 PM Referred By: Electronically Signed By: Jese Whitley Transcribed By: MUS Signed By Jese Whitley MD 10/02/24 1624 Normal [facility] Eosinophils [#/volume] in Bl ood by Automated countOrdered By: Rafi Cai on 10-02-2024 Eosinophils (Bld) [#/Vol] 1.2 10*3/uL High 0.0-0.45 [facility] Comment on above: Performed By: #### C CHINTAN, BMP #### [facility] [address] Eosinophils/100 leukocytes i n Blood by Automated countOrdered By: Rafi Cai on 10-02-2024 Eosinophils/100 WBC (Bld) 8.7 % Normal . [facility] Comment on above: Performed By: #### C CHINTAN, BMP #### [address] Erythrocyte distribution wid th [Ratio] by Automated countOrdered By: Rafi Cai on 10-02-2024 Erythrocyte distribution width (RBC) [Ratio] 15.3 % High 12.0-14.8 [facility] Comment on above: Performed By: #### C CHINTAN, BMP #### [address] Erythrocytes [#/volume] in B lood by Automated countOrdered By: Rafi Cai on 10-02-2024 RBC (Bld) [#/Vol] 2.89 10*6/uL Low 3.90-5.60 [facility] Comment on above: Performed By: #### C CHINTAN, BMP #### [address] GLUCOSE POCT GLUCOMETERSon 0 10-02-2024 Glucose [Mass/Vol] 74 mg/dL [facility] Comment on above: Random Glucose Refer ence Range is dependent on time and content of last meal. Glucose of more than 200 mg/dL in a nonstressed, ambulatory subject supports the diagnosis of Diabetes Mellitus. [facility] COMMEMT1 Glu2: Cleaned Meter [facility] Glucose [Mass/Vol] 77 mg/dL [facility] Comment on above: Random Glucose Refer ence Range is dependent on time and content of last meal. Glucose of more than 200 mg/dL in a nonstressed, ambulatory subject supports the diagnosis of Diabetes Mellitus. [facility] Glucose Poct Glucometerson 0 10-02-2024 Commemt1 Glu2: Cleaned Meter Normal [facility] Comment on above: Result Comment: PERF ORMED BY: [place] [address] PATHOLOGIST FEATHER STITCHER LEXA ELLIOTT M.D. Performed By: #### G BHARATI #### Point of Care testing , Glucose [Mass/Vol] 77 mg/dL Normal [facility] Comment on above: Result Comment: [place] om Glucose Reference Range is dependent on time and content of last meal. Glucose of more than 200 mg/dL in a nonstressed, ambulatory subject supports the diagnosis of Diabetes Mellitus. Performed By: #### G LULS #### Point of Care testing , Glucose [Mass/volume] in Ser um or PlasmaOrdered By: Rafi Cai on 10-02-2024 Glucose [Mass/Vol] 72 mg/dL Normal 70-100 [facility] Comment on above: ADA recommended refe rence rangeRandom Glucose Reference Range is dependent on time and content of last meal. Glucose of more than 200 mg/dL in a nonstressed, ambulatory subject supports the diagnosis of Diabetes Mellitus. Result Comment: [place] [facility] Glucose Reference Range is dependent on time and content of last meal. Glucose of more than 200 mg/dL in a nonstressed, ambulatory subject supports the diagnosis of Diabetes Mellitus. ADA recommended reference range Performed By: #### C BC, BMP #### [address] Hematocrit [Volume Fraction] of Blood by Automated countOrdered By: Rafi Cai on 10-02-2024 Hematocrit (Bld) [Volume fraction] 23.0 % Low 38.8-50.0 [facility] Comment on above: Performed By: #### C BC, BMP #### [address] Hemoglobin [Mass/volume] in BloodOrdered By: Rafi Cai on 10-02-2024 Hemoglobin (Bld) [Mass/Vol] 7.4 g/dL Low 13.0-17.0 [facility] Comment on above: Performed By: #### C BC, BMP #### [place] [address] [place] Martín 10-02-2024 L ------ Specimen: [id number] Received: 10/02/24 Status: ROSIO Rajput Num: [id number] Spec Type: Surgical Subm Dr: Cathy Brar MD Tissues: A Debridement-Skin/Other Than Skin (PRODUCTS OF DEBRIDEMENT) Procedures: Gianna ASHBY/Margo Smith Age/ Patient Sex Location Account Attending Physician Ganga Stinson/M [place] [id number] Cathy Brar MD SPEC NUM: [id number] RECD: 10/02/24 STATUS: ROSIO RAJPUT NUM: [id number] NAYLA: 10/02/[address]: Cathy Brar MD ENTERED: 10/02/[address] [facility] [address]: SPEC TYPE: Surgical DEPT: S ENTERED BY: [id number] RECV BY: [id number] ORDERED: HE, Gross/Micro L3 ORDERED: HE, Gross/Micro [...] to yellow, dull and uniform cut surfaces. Washer Repairman sections are submitted in a single cassette. (1, , [id number] A) Microscopic Description Microscopic examination is performed. CPT Codes 52548 Specimen: [id number] Received: 10/02/24 Status: ROSIO Matti Num: [id number] Spec Type: Surgical Subm Dr: Cathy Brar MD Tissues: A Debridement-Skin/Other Than Skin (PRODUCTS OF DEBRIDEMENT) Procedures: HE, Gross/Micro L3 Patient: Ganga Stinson [id number] (Continued) Signed (signature on file) Zak Brasher MD 10/04/24 0918 Normal [facility] Leukocytes [#/volume] correc shreya for nucleated erythrocytes in Blood by Automated counOrdered By: Rafi Cai on 10-02-2024 WBC corrected for nucl RBC Auto (Bld) [#/Vol] 13.7 10*3/uL High 4.1-10.5 [facility] Leukocytes [#/volume] in Blo od by Automated countOrdered By: Rafi Cai on 10-02-2024 WBC (Bld) [#/Vol] 13.7 10*3/uL High 4.1-10.5 [facility] Comment on above: Performed By: #### C CHINTAN, BMP #### [facility] [address] [place] [address] [place] Lymphocytes [#/volume] in Bl ood by Automated countOrdered By: Rafi Cai on 10-02-2024 Lymphocytes (Bld) [#/Vol] 1.5 10*3/uL Normal 1.00-4.8 [facility] Comment on above: Performed By: #### C CHINTAN, BMP #### [facility] [address] [place] [address] [place] Lymphocytes/100 leukocytes i n Blood by Automated countOrdered By: Rafi Cai on 10-02-2024 Lymphocytes/100 WBC (Bld) 11.2 % Normal . [facility] Comment on above: Performed By: #### C BC, BMP #### [facility] [address] MCH [Entitic mass] by Automa shreya countOrdered By: Rafi Cai on 10-02-2024 MCH (RBC) [Entitic mass] 25.6 pg Low 27.5-35.2 [facility] Comment on above: Performed By: #### C BC, BMP #### [facility] [address] MCHC Auto (RBC) [Mass/Vol]Or dered By: Rafi Cai on 10-02-2024 MCHC (RBC) [Mass/Vol] 32.2 g/dL Low 32.5-35.6 [facility] MCV [Entitic volume] by Auto mated countOrdered By: Rafi Cai on 10-02-2024 MCV (RBC) [Entitic vol] 79.5 fL Low 83.5-101 [facility] Comment on above: Performed By: #### C BC, BMP #### [address] Monocytes [#/volume] in Bloo d by Automated countOrdered By: Rafi Cai on 10-02-2024 Monocytes (Bld) [#/Vol] 1.1 10*3/uL High 0.0-0.8 [facility] Comment on above: Performed By: #### C BC, BMP #### [facility] [address] [place] [address] [place] Monocytes/100 leukocytes in Blood by Automated countOrdered By: Rafi Cai on 10-02-2024 Monocytes/100 WBC (Bld) 8.3 % Normal . [facility] Comment on above: Performed By: #### C BC, BMP #### [facility] [address] Neutrophils [#/volume] in Bl ood by Automated countOrdered By: Rafi Cai on 10-02-2024 Neutrophils (Bld) [#/Vol] 9.8 10*3/uL High 1.8-7.7 [facility] Comment on above: Performed By: #### C CHINTAN, BMP #### [facility] [address] [place] [address] [place] Neutrophils/100 leukocytes i n Blood by Automated countOrdered By: Rafi Cai on 10-02-2024 Neutrophils/100 WBC (Bld) 71.2 % Normal . [facility] Comment on above: Performed By: #### C CHINTAN, BMP #### [facility] [address] No Panel InformationOrdered By: Rafi Cai on 10-02-2024 Estimated GFR (CKD-EPI) 45.056 mL/Min [facility] Creatinine Clearance (Chem 54.42 [facility] No Panel InformationOrdered By: Cathy Brar on 10-02-2024 Bedside Glucose Comment Glu2: cleaned meter [facility] Nucleated erythrocytes [Pres ence] in Blood by Automated countOrdered By: Rafi Cai on 10-02-2024 Nucleated RBC Auto Ql (Bld) 0.0 /100{WBC} 0-0.5 [facility] Platelet mean volume [Entiti c volume] in Blood by Automated countOrdered By: Rafi Cai on 10-02-2024 Platelet mean volume (Bld) [Entitic vol] 6.2 fL Low 6.6-10.1 [facility] Comment on above: Performed By: #### C CHINTAN, BMP #### [facility] [address] [place] [address] [place] Platelets [#/volume] in Bloo d by Automated countOrdered By: Rafi Cai on 10-02-2024 Platelets (Bld) [#/Vol] 339 10*3/uL Normal 150-450 [facility] Comment on above: Performed By: #### C CHINTAN, BMP #### [facility] [address] Potassium [Moles/volume] in Serum or PlasmaOrdered By: Rafi Cai on 10-02-2024 Potassium [Moles/Vol] 3.7 mmol/L Normal 3.5-5.1 [facility] Comment on above: Performed By: #### C CHINTAN, BMP #### [facility] [address] Serum or plasma anion gap de terminationOrdered By: Rafi Cai on 10-02-2024 Anion gap [Moles/Vol] 8.0 mmol/L Normal 6.0-15.0 [facility] Comment on above: Performed By: #### C BC, BMP #### [facility] [address] Sodium [Moles/volume] in Ser um or PlasmaOrdered By: Rafi Cai on 10-02-2024 Sodium [Moles/Vol] 138 mmol/L Normal 136-145 [facility] Comment on above: Performed By: #### C BC, BMP #### [facility] [address] Urea nitrogen [Mass/volume] in Serum or PlasmaOrdered By: Rafi Cai on 10-02-2024 Urea nitrogen [Mass/Vol] 25 mg/dL Normal 7-25 [facility] Comment on above: Performed By: #### C BC, BMP #### [address] ALL CBC WITH AUTO DIFFon BASOPHILS ABSOLUTE AUTO 0 [facility] Basophils/100 WBC (Bld) 0.3 % 0.2 - 2.0 % [facility] Eosinophils/100 WBC (Bld) 9.5 % High 0.9 - 7.0 % [facility] Erythrocyte distribution width (RBC) [Ratio] 14.3 % 11.0 - 15.0 % [facility] Hematocrit (Bld) [Volume fraction] 23.2 % Critically low 42.0 - 54.0 % [facility] Comment on above: RESULTS CALLED TO NICHOL SWAN RN Hemoglobin (Bld) [Mass/Vol] 7.4 g/dL Low 14.0 - 18.0 g/dL [facility] IMMATURE GRANULOCYTES ABS AUTO 0.07 High [facility] Immature granulocytes/100 WBC (Bld) 0.5 % 0.0 - 0.5 % [facility] Interpretation and review of laboratory results Abnormal [facility] LYMPHOCYTES ABSOLUTE AUTO 1.8 [facility] Lymphocytes/100 WBC (Bld) 13.3 % Low 20.5 - 60.0 % [facility] MCH (RBC) [Entitic mass] 26.6 pg 25.9 - 34.0 pg [facility] MCHC (RBC) [Mass/Vol] 31.9 g/dL 29.9 - 35.2 g/dL [facility] MCV (RBC) [Entitic vol] 83.5 fL 80.0 - 94.0 fL [facility] MONOCYTES ABSOLUTE AUTO 1.1 High [facility] Monocytes/100 WBC (Bld) 7.8 % 1.7 - 12.0 % [facility] NEUTROPHILS ABSOLUTE AUTO 9.3 High [facility] Neutrophils/100 WBC (Bld) 68.6 % 43.0 - 75.0 % [facility] Platelet mean volume (Bld) [Entitic vol] 8.8 fL Low 9.5 - 13.5 fL [facility] TBH EO # 1.3 High [facility] TBH PLT 306 [facility] RBC 2.78 Low [facility] WBC 13.5 High [facility] ALL CBC WITH AUTO DIFFon BASOPHILS ABSOLUTE AUTO 0.1 [facility] Basophils/100 WBC (Bld) 0.4 % 0.2 - 2.0 % [facility] Eosinophils/100 WBC (Bld) 9 % High 0.9 - 7.0 % [facility] Erythrocyte distribution width (RBC) [Ratio] 14.5 % 11.0 - 15.0 % [facility] Hematocrit (Bld) [Volume fraction] 23.8 % Critically low 42.0 - 54.0 % [facility] Comment on above: RESULTS CALLED TO TABBY RUBALCAVA RN at 1219 Hemoglobin (Bld) [Mass/Vol] 7.4 g/dL Low 14.0 - 18.0 g/dL [facility] IMMATURE GRANULOCYTES ABS AUTO 0.08 High [facility] Immature granulocytes/100 WBC (Bld) 0.6 % High 0.0 - 0.5 % [facility] Interpretation and review of laboratory results Abnormal [facility] LYMPHOCYTES ABSOLUTE AUTO 1.6 [facility] Lymphocytes/100 WBC (Bld) 12.9 % Low 20.5 - 60.0 % [facility] MCH (RBC) [Entitic mass] 26.3 pg 25.9 - 34.0 pg [facility] MCHC (RBC) [Mass/Vol] 31.1 g/dL 29.9 [...] TB WBC 12.7 High [facility] US ankle/arm indiceson 09-05 US ankle/arm indices [facility] [address] [place] [address] Ultrasound Report Signed Patient: Ganga Stinson MR#: [id number] : 1960 Acct:[id number] Age/Sex: 64 / M ADM Date: 08/30/24 Loc: [facility] Room: Type: [facility] Attending Dr: Jesusita Navarro MD Ordering [...] Navarro MD,FACS,FSVS 09/05/2024 12:35 PM Dictation Location: [facility] Tech: Livia Hawk Transcribed By: MARYANN 09/05/24 1235 Dictated By: Jesusita Navarro MD 09/05/24 1234 Signed By: 09/05/24 1235 Normal [facility] ALL CBC WITH AUTO DIFFon BASOPHILS ABSOLUTE AUTO 0.1 [facility] Basophils/100 WBC (Bld) 0.4 % 0.2 - 2.0 % [facility] Eosinophils/100 WBC (Bld) 5 % 0.9 - 7.0 % [facility] Erythrocyte distribution width (RBC) [Ratio] 14.3 % 11.0 - 15.0 % [facility] Hematocrit (Bld) [Volume fraction] 23.4 % Critically low 42.0 - 54.0 % [facility] Comment on above: RESULTS CALLED TO TABBY RUBALCAVA RN Hemoglobin (Bld) [Mass/Vol] 7.3 g/dL Low 14.0 - 18.0 g/dL [facility] IMMATURE GRANULOCYTES ABS AUTO 0.06 High [facility] Immature granulocytes/100 WBC (Bld) 0.4 % 0.0 - 0.5 % [facility] Interpretation and review of laboratory results Abnormal [facility] LYMPHOCYTES ABSOLUTE AUTO 1.6 [facility] Lymphocytes/100 WBC (Bld) 11.5 % Low 20.5 - 60.0 % [facility] MCH (RBC) [Entitic mass] 26 pg 25.9 - 34.0 pg [facility] MCHC (RBC) [Mass/Vol] 31.2 g/dL 29.9 - 35.2 g/dL [facility] MCV (RBC) [Entitic vol] 83.3 fL 80.0 - 94.0 fL [facility] MONOCYTES ABSOLUTE AUTO 1.1 High [facility] Monocytes/100 WBC (Bld) 8.2 % 1.7 - 12.0 % [facility] NEUTROPHILS ABSOLUTE AUTO 10.3 High [facility] Neutrophils/100 WBC (Bld) 74.5 % 43.0 - 75.0 % [facility] Platelet mean volume (Bld) [Entitic vol] 8.9 fL Low 9.5 - 13.5 fL [facility] TBH EO # 0.7 [facility] TBH PLT 319 [facility] TB RBC 2.81 Low [facility] Healthcare TBH WBC 13.8 High [facility] [place] ALL CBC WITH AUTO DIFFon BASOPHILS ABSOLUTE AUTO 0.1 [facility] Basophils/100 WBC (Bld) 0.4 % 0.2 - 2.0 % [facility] Eosinophils/100 WBC (Bld) 5.1 % 0.9 - 7.0 % [facility] Erythrocyte distribution width (RBC) [Ratio] 15.3 % High 11.0 - 15.0 % [facility] Hematocrit (Bld) [Volume fraction] 22.9 % Critically low 42.0 - 54.0 % [facility] Comment on above: RESULTS CALLED TO CARLOS FREED RN Hemoglobin (Bld) [Mass/Vol] 6.9 g/dL Critically low 14.0 - 18.0 g/dL [facility] Comment on above: RESULTS CALLED TO CARLOS FREED RN IMMATURE GRANULOCYTES ABS AUTO 0.05 High [facility] Immature granulocytes/100 WBC (Bld) 0.4 % 0.0 - 0.5 % [facility] Interpretation and review of laboratory results Abnormal [facility] LYMPHOCYTES ABSOLUTE AUTO 1.3 [facility] Lymphocytes/100 WBC (Bld) 10.2 % Low 20.5 - 60.0 % [facility] MCH (RBC) [Entitic mass] 24.7 pg Low 25.9 - 34.0 pg [facility] MCHC (RBC) [Mass/Vol] 30.1 g/dL 29.9 - 35.2 g/dL [facility] MCV (RBC) [Entitic vol] 82.1 fL 80.0 - 94.0 fL [facility] MONOCYTES ABSOLUTE AUTO 1.1 High [facility] Monocytes/100 WBC (Bld) 8.1 % 1.7 - 12.0 % [facility] NEUTROPHILS ABSOLUTE AUTO 9.9 High [facility] Neutrophils/100 WBC (Bld) 75.8 % High 43.0 - 75.0 % [facility] Platelet mean volume (Bld) [Entitic vol] 8.9 fL Low 9.5 - 13.5 fL [facility] TBH EO # 0.7 [facility] TB PLT 292 [facility] TB RBC 2.79 Low [facility] TB WBC 13.1 High [facility] ALL CBC WITH AUTO DIFFon BASOPHILS ABSOLUTE AUTO 0.1 [facility] Basophils/100 WBC (Bld) 0.6 % 0.2 - 2.0 % [facility] Eosinophils/100 WBC (Bld) 8.8 % High 0.9 - 7.0 % [facility] Erythrocyte distribution width (RBC) [Ratio] 14 % 11.0 - 15.0 % [facility] Hematocrit (Bld) [Volume fraction] 26.9 % Low 42.0 - 54.0 % [facility] Hemoglobin (Bld) [Mass/Vol] 8.1 g/dL Low 14.0 - 18.0 g/dL [facility] IMMATURE GRANULOCYTES ABS AUTO 0.12 High [facility] Immature granulocytes/100 WBC (Bld) 0.9 % High 0.0 - 0.5 % [facility] Interpretation and review of laboratory results Abnormal [facility] LYMPHOCYTES ABSOLUTE AUTO 1.6 [facility] Lymphocytes/100 WBC (Bld) 12.2 % Low 20.5 - 60.0 % [facility] MCH (RBC) [Entitic mass] 24.9 pg Low 25.9 - 34.0 pg [facility] MCHC (RBC) [Mass/Vol] 30.1 g/dL 29.9 - 35.2 g/dL [facility] MCV (RBC) [Entitic vol] 82.8 fL 80.0 - 94.0 fL [facility] MONOCYTES ABSOLUTE AUTO 1 High [facility] Monocytes/100 WBC (Bld) 7.3 % 1.7 - 12.0 % [facility] NEUTROPHILS ABSOLUTE AUTO 9.3 High [facility] Neutrophils/100 WBC (Bld) 70.2 % 43.0 - 75.0 % [facility] Platelet mean volume (Bld) [Entitic vol] 8.9 fL Low 9.5 - 13.5 fL [facility] TBH EO # 1.2 High [facility] TB PLT 317 [facility] TB RBC 3.25 Low [facility] TB WBC 13.2 High [facility] ALL SED RATEon 02-14-2024 Interpretation and review of laboratory results Abnormal [facility] TBH SED RATE 67 High NINF [facility] Basic Metabolic Panelon 01-27 Anion gap [Moles/Vol] 9.9 mmol/L Normal 6.0-15.0 [facility] Comment on above: Performed By: #### C BC, BMP #### [facility] [address] Calcium [Mass/Vol] 7.6 mg/dL Low 8.6-10.3 [facility] Comment on above: Performed By: #### C BC, BMP #### [facility] [address] [place] [address] [place] Chloride [Moles/Vol] 106 mmol/L Normal 98-107 [facility] Comment on above: Performed By: #### C BC, BMP #### [place] [address] [place] CO2 [Moles/Vol] 26.1 mmol/L Normal 21.0-31.0 [facility] Comment on above: Performed By: #### C BC, BMP #### [place] [address] [place] Creatinine [Mass/Vol] 1.59 mg/dL High 0.70-1.30 [facility] Comment on above: Performed By: #### C BC, BMP #### [place] [address] [place] GFR/1.73 sq M.predicted MDRD (S/P/Bld) [Vol rate/Area] 48.779 mL/min/{1.73_m2} Normal [facility] Comment on above: Performed By: #### C BC, BMP #### [place] [address] [place] Glucose [Mass/Vol] 128 mg/dL High 70-100 [facility] Comment on above: Result Comment: [place] Glucose Reference Range is dependent on time and content of last meal. Glucose of more than 200 mg/dL in a nonstressed, ambulatory subject supports the diagnosis of Diabetes Mellitus. ADA recommended reference range Performed By: #### C BC, BMP #### [place] [address] [place] Potassium [Moles/Vol] 4.0 mmol/L Normal 3.5-5.1 [facility] Comment on above: Performed By: #### C BC, BMP #### [place] [address] Sodium [Moles/Vol] 138 mmol/L Normal 136-145 [facility] Comment on above: Performed By: #### C CHINTAN, BMP #### [address] Urea nitrogen [Mass/Vol] 24 mg/dL Normal 7-25 [facility] Comment on above: Performed By: #### C CHINTAN, BMP #### [address] Basophils Auto (Bld) [#/Vol] Ordered By: Nina Aleta on 02-08-2024 Basophils (Bld) [#/Vol] Automated basophil count 0.0-0.2 [facility] Basophils/100 WBC Auto (Bld) Ordered By: Nina Aleta on 02-08-2024 Basophils/100 WBC (Bld) Automated basophil % . [facility] C reactive protein [Mass/vol ume] in Serum or PlasmaOrdered By: Nina Aleta on 02-08-2024 CRP [Mass/Vol] C reactive protein [Mass/volume] in Serum or Plasma High 0.0-0.5 [facility] C-Reactive Proteinon 024 C-Reactive Protein 10.7 mg/dL High 0.0-0.5 [facility] Comment on above: Performed By: #### C CHINTAN, BMP #### [address] Calcium [Mass/volume] in Ser um or PlasmaOrdered By: Nina Aleta on 02-08-2024 Calcium [Mass/Vol] Calcium [Mass/volume ] in Serum or Plasma Low 8.6-10.3 [facility] Carbon dioxide, total [Moles /volume] in Serum or PlasmaOrdered By: Nina Aleta on 02-08-2024 CO2 [Moles/Vol] Carbon dioxide, tota l [Moles/volume] in Serum or Plasma 21.0-31.0 [facility] Chloride [Moles/volume] in S tremayne or PlasmaOrdered By: Nina Aleta on 02-08-2024 Chloride [Moles/Vol] Chloride [Moles/vol ume] in Serum or Plasma 98-107 [facility] Complete Blood Count Auto Di ffon 02-08-2024 Basophils (Bld) [#/Vol] 0.0 10*3/uL Normal 0.0-0.2 [facility] Comment on above: Performed By: #### C BC, BMP, FE PRO, B12, ESR, CRP #### [address] Basophils/100 WBC (Bld) 0.4 % Normal . [facility] Comment on above: Performed By: #### C BC, BMP, FE PRO, B12, ESR, CRP #### [address] Eosinophils (Bld) [#/Vol] 0.2 10*3/uL Normal 0.0-0.45 [facility] Comment on above: Performed By: #### C BC, BMP, FE PRO, B12, ESR, CRP #### [address] Eosinophils/100 WBC (Bld) 2.4 % Normal . [facility] Comment on above: Performed By: #### C BC, BMP, FE PRO, B12, ESR, CRP #### [address] Erythrocyte distribution width (RBC) [Ratio] 15.2 % High 12.0-14.8 [facility] Comment on above: Performed By: #### C BC, BMP, FE PRO, B12, ESR, CRP #### [address] Hematocrit (Bld) [Volume fraction] 23.1 % Low 38.8-50.0 [facility] Comment on above: Performed By: #### C BC, BMP, FE PRO, B12, ESR, CRP #### [address] Hemoglobin (Bld) [Mass/Vol] 7.8 g/dL Low 13.0-17.0 [facility] Comment on above: Performed By: #### C BC, BMP, FE PRO, B12, ESR, CRP #### [address] Lymphocytes (Bld) [#/Vol] 0.7 10*3/uL Low 1.00-4.8 [facility] Comment on above: Performed By: #### C BC, BMP, FE PRO, B12, ESR, CRP #### [address] Lymphocytes/100 WBC (Bld) 7.0 % Normal . [facility] Comment on above: Performed By: #### C BC, BMP, FE PRO, B12, ESR, CRP #### [address] MCH (RBC) [Entitic mass] 26.8 pg Low 27.5-35.2 [facility] Comment on above: Performed By: #### C BC, BMP, FE PRO, B12, ESR, CRP #### [address] MCV (RBC) [Entitic vol] 79.5 fL Low 83.5-101 [facility] Comment on above: Performed By: #### C BC, BMP, FE PRO, B12, ESR, CRP #### [address] Mean Corpuscular HGB Conc 33.7 g/dL Normal 32.5-35.6 [facility] Comment on above: Performed By: #### C BC, BMP, FE PRO, B12, ESR, CRP #### [address] Monocytes (Bld) [#/Vol] 0.5 10*3/uL Normal 0.0-0.8 [facility] Comment on above: Performed By: #### C BC, BMP, FE PRO, B12, ESR, CRP #### [address] Monocytes/100 WBC (Bld) 4.8 % Normal . [facility] Comment on above: Performed By: #### C BC, BMP, FE PRO, B12, ESR, CRP #### [address] Neutrophils (Bld) [#/Vol] 9.0 10*3/uL High 1.8-7.7 [facility] Comment on above: Performed By: #### C BC, BMP, FE PRO, B12, ESR, CRP #### [address] Neutrophils/100 WBC (Bld) 85.4 % Normal . [facility] Comment on above: Performed By: #### C BC, BMP, FE PRO, B12, ESR, CRP #### [address] NRBC% 0.0 /100{WBC} Normal 0-0.5 [facility] Comment on above: Performed By: #### C BC, BMP, FE PRO, B12, ESR, CRP #### [address] Platelet mean volume (Bld) [Entitic vol] 6.7 fL Normal 6.6-10.1 [facility] Comment on above: Performed By: #### C BC, BMP, FE PRO, B12, ESR, CRP #### [address] Platelets (Bld) [#/Vol] 220 10*3/uL Normal 150-450 [facility] Comment on above: Performed By: #### C BC, BMP, FE PRO, B12, ESR, CRP #### [address] RBC (Bld) [#/Vol] 2.91 10*6/uL Low 3.90-5.60 [facility] Comment on above: Performed By: #### C BC, BMP, FE PRO, B12, ESR, CRP #### [address] WBC (Bld) [#/Vol] 10.5 10*3/uL Normal 4.1-10.5 [facility] Comment on above: Performed By: #### C BC, BMP, FE PRO, B12, ESR, CRP #### [address] Creatinine [Mass/volume] in Serum or PlasmaOrdered By: Nina Aleta on 02-08-2024 Creatinine [Mass/Vol] Creatinine [Mass/v olume] in Serum or Plasma High 0.70-1.30 [facility] Eosinophils Auto (Bld) [#/Vo l]Ordered By: Nina Aleta on 02-08-2024 Eosinophils (Bld) [#/Vol] Automated eosinophil count 0.0-0.45 [facility] Eosinophils/100 WBC Auto (Bl d)Ordered By: Nina Aleta on 02-08-2024 Eosinophils/100 WBC (Bld) Automated eosinophil % . [facility] Erythrocyte Sedimentation Ra мария 02-08-2024 ESR (Bld) [Velocity] 44 mm/h High 0-19 [facility] Comment on above: Result Comment: PERF ORMED BY: [place] [address] PATHOLOGIST FEATHER STITCHER FARRAH PAUL M.D. Performed By: #### C BC, BMP, FE PRO, B12, ESR, CRP #### [address] Erythrocyte distribution wid th Auto (RBC) [Ratio]Ordered By: Nina Aleta on 02-08-2024 Erythrocyte distribution width (RBC) [Ratio] Erythrocyte distribution width [Ratio] by Automated count High 12.0-14.8 [facility] Erythrocyte sedimentation ra te by Photometric methodOrdered By: Nina Aleta on 02-08-2024 ESR Photometric method (Bld) [Velocity] Erythrocyte sedimentation rate by Photometric method High 0-19 [facility] FE PROon 02-08-2024 % Iron Saturation Not performed Normal 20-50 [facility] Comment on above: Performed By: #### C BC, BMP #### [address] Ferritin [Mass/Vol] 422.9 ng/mL High 23.9-336.2 [facility] Comment on above: Performed By: #### C BC, BMP #### [facility] [address] [place] [id number] [facility] Iron [Mass/Vol] ug/dL Low 50-212 [facility] Comment on above: Performed By: #### C BC, BMP #### [facility] [address] Total Iron Binding Capacity 175 ug/dL Low 255-450 [facility] Comment on above: Performed By: #### C BC, BMP #### [facility] [address] [place] [id number] [facility] Transferrin [Mass/Vol] 125 mg/dL Low 203-362 [facility] Comment on above: Performed By: #### C BC, BMP #### [facility] [address] [place] [id number] [facility] Ferritin [Mass/volume] in Se rum or PlasmaOrdered By: Nina River on 02-08-2024 Ferritin [Mass/Vol] Ferritin [Mass/volum e] in Serum or Plasma High 23.9-336.2 [facility] Glucose [Mass/volume] in Ser um or PlasmaOrdered By: Nina River on 02-08-2024 Glucose [Mass/Vol] Glucose [Mass/volume ] in Serum or Plasma High 70-100 [facility] Comment on above: ADA recommended refe rence rangeRandom Glucose Reference Range is dependent on time and content of last meal. Glucose of more than 200 mg/dL in a nonstressed, ambulatory subject supports the diagnosis of Diabetes Mellitus. Hematocrit Auto (Bld) [Volum e fraction]Ordered By: Nina River on 02-08-2024 Hematocrit (Bld) [Volume fraction] Hematocrit [Volume Fraction] of Blood by Automated count Low 38.8-50.0 [facility] Hemoglobin [Mass/volume] in BloodOrdered By: Nina River on 02-08-2024 Hemoglobin (Bld) [Mass/Vol] Hemoglobin [Mass/volume] in Blood Low 13.0-17.0 [facility] Iron [Mass/volume] in Serum or PlasmaOrdered By: Nina Aleta on 02-08-2024 Iron [Mass/Vol] Iron [Mass/volume] i n Serum or Plasma Low 50-212 [facility] Leukocytes [#/volume] correc shreya for nucleated erythrocytes in Blood by Automated counOrdered By: Nina Aleta on 02-08-2024 WBC corrected for nucl RBC Auto (Bld) [#/Vol] Leukocytes [#/volume] corrected for nucleated erythrocytes in Blood by Automated coun 4.1-10.5 [facility] Lymphocytes Auto (Bld) [#/Vo l]Ordered By: Nina Aleta on 02-08-2024 Lymphocytes (Bld) [#/Vol] Lymphocytes [#/volume] in Blood by Automated count Low 1.00-4.8 [facility] Lymphocytes/100 WBC Auto (Bl d)Ordered By: Nina Aleta on 02-08-2024 Lymphocytes/100 WBC (Bld) Lymphocytes/100 leukocytes in Blood by Automated count . [facility] MCH Auto (RBC) [Entitic mass ]Ordered By: Nina Aleta on 02-08-2024 MCH (RBC) [Entitic mass] MCH [Entitic mass] by Automated count Low 27.5-35.2 [facility] MCHC Auto (RBC) [Mass/Vol]Or dered By: Nina Aleta on 02-08-2024 MCHC (RBC) [Mass/Vol] MCHC [Mass/volume] by Automated count 32.5-35.6 [facility] MCV Auto (RBC) [Entitic vol] Ordered By: Nina Aleta on 02-08-2024 MCV (RBC) [Entitic vol] MCV [Entitic volume] by Automated count Low 83.5-101 [facility] Monocytes Auto (Bld) [#/Vol] Ordered By: Nina Aleta on 02-08-2024 Monocytes (Bld) [#/Vol] Automated blood monocyte count 0.0-0.8 [facility] Monocytes/100 WBC Auto (Bld) Ordered By: Nina Aleta on 02-08-2024 Monocytes/100 WBC (Bld) Automated monocyte % . [facility] Neutrophils Auto (Bld) [#/Vo l]Ordered By: Nina River on 02-08-2024 Neutrophils (Bld) [#/Vol] Neutrophils [#/volume] in Blood by Automated count High 1.8-7.7 [facility] Neutrophils/100 WBC Auto (Bl d)Ordered By: Nina River on 02-08-2024 Neutrophils/100 WBC (Bld) Automated neutrophil % . [facility] No Panel InformationOrdered By: Nina River on 02-08-2024 Estimated GFR (CKD-EPI) 48.779 mL/Min [facility] Creatinine Clearance (Chem N/A [facility] Nucleated erythrocytes [Pres ence] in Blood by Automated countOrdered By: Nina River on 02-08-2024 Nucleated RBC Auto Ql (Bld) Nucleated erythrocytes [Presence] in Blood by Automated count 0-0.5 [facility] Platelet mean volume Auto (B ld) [Entitic vol]Ordered By: Nina River on 02-08-2024 Platelet mean volume (Bld) [Entitic vol] Platelet mean volume [Entitic volume] in Blood by Automated count 6.6-10.1 [facility] Platelets Auto (Bld) [#/Vol] Ordered By: Nina River on 02-08-2024 Platelets (Bld) [#/Vol] Platelets [#/volume] in Blood by Automated count 150-450 [facility] Potassium [Moles/volume] in Serum or PlasmaOrdered By: Nina River on 02-08-2024 Potassium [Moles/Vol] Potassium [Moles/v olume] in Serum or Plasma 3.5-5.1 [facility] RBC Auto (Bld) [#/Vol]Ordere d By: Nina River on 02-08-2024 RBC (Bld) [#/Vol] Erythrocytes [#/volu me] in Blood by Automated count Low 3.90-5.60 [facility] Serum or plasma anion gap de terminationOrdered By: Nina River on 02-08-2024 Anion gap [Moles/Vol] Serum or plasma an ion gap determination 6.0-15.0 [facility] Serum or plasma iron binding capacity measurement (mass/volume)Ordered By: Nina River on 02-08-2024 Iron binding capacity [Mass/Vol] Iron binding capacity [Mass/volume] in Serum or Plasma Low 255-450 [facility] Serum or plasma iron saturat ion measurement (mass fraction)Ordered By: Nina River on 02-08-2024 Iron saturation [Mass fraction] Iron saturation [Mass Fraction] in Serum or Plasma [facility] Comment on above: Test not performed Sodium [Moles/volume] in Ser um or PlasmaOrdered By: Nina River on 02-08-2024 Sodium [Moles/Vol] Sodium [Moles/volume ] in Serum or Plasma 136-145 [facility] Transferrin [Mass/volume] in Serum or PlasmaOrdered By: Nina River on 02-08-2024 Transferrin [Mass/Vol] Transferrin [Mass/volume] in Serum or Plasma Low 203-362 [facility] Urea nitrogen [Mass/volume] in Serum or PlasmaOrdered By: Nina River on 02-08-2024 Urea nitrogen [Mass/Vol] Urea nitrogen [Mass/volume] in Serum or Plasma 7-25 [facility] Vitamin B12on 02-08-2024 Cobalamin (Vitamin B12) [Mass/Vol] 701 pg/mL Normal 180-914 [facility] Comment on above: Result Comment: PERF ORMED BY: [place] [address] PATHOLOGIST FEATHER STITCHER FARRAH PAUL M.D. Performed By: #### C BC, BMP #### [address] Vitamin B12 ser/plasOrdered By: Nina River on 02-08-2024 Cobalamin (Vitamin B12) [Mass/Vol] Vitamin B12 ser/plas 180-914 [facility] WBC Auto (Bld) [#/Vol]Ordere d By: Nina River on 02-08-2024 WBC (Bld) [#/Vol] Leukocytes [#/volume ] in Blood by Automated count 4.1-10.5 [facility] ALL CBC WITH AUTO DIFFon BASOPHILS ABSOLUTE AUTO 0.0 [facility] Basophils/100 WBC (Bld) 0.3 % 0.2 - 2.0 % [facility] Eosinophils/100 WBC (Bld) 6.4 % 0.9 - 7.0 % [facility] Erythrocyte distribution width (RBC) [Ratio] 16.8 % High 11.0 - 15.0 % [facility] Hematocrit (Bld) [Volume fraction] 29.4 % Low 42.0 - 54.0 % [facility] Hemoglobin (Bld) [Mass/Vol] 9.0 g/dL Low 14.0 - 18.0 g/dL [facility] IMMATURE GRANULOCYTES ABS AUTO 0.04 High [facility] Immature granulocytes/100 WBC (Bld) 0.4 % 0.0 - 0.5 % [facility] Interpretation and review of laboratory results Abnormal [facility] LYMPHOCYTES ABSOLUTE AUTO 1.8 [facility] Lymphocytes/100 WBC (Bld) 17.7 % Low 20.5 - 60.0 % [facility] MCH (RBC) [Entitic mass] 25.3 pg Low 25.9 - 34.0 pg [facility] MCHC (RBC) [Mass/Vol] 30.6 g/dL 29.9 - 35.2 g/dL [facility] MCV (RBC) [Entitic vol] 82.6 fL 80.0 - 94.0 fL [facility] MONOCYTES ABSOLUTE AUTO 0.7 [facility] Monocytes/100 WBC (Bld) 6.7 % 1.7 - 12.0 % [facility] NEUTROPHILS ABSOLUTE AUTO 7.1 High [facility] Neutrophils/100 WBC (Bld) 68.5 % 43.0 - 75.0 % [facility] Platelet mean volume (Bld) [Entitic vol] 8.8 fL Low 9.5 - 13.5 fL [facility] TBH EO # 0.7 [facility] TB PLT 280 [facility] TB RBC 3.56 Low [facility] TB WBC 10.3 [facility] BONE MARROWon 10-11-2023 BONE MARROW SEE SEPARATE REPORT Normal [facility] Comment on above: Result Comment: REVI EWED BY SOLEDAD HUYNH M.D. Performed By: #### E [facility], [address], MDSDF #### [facility] [place] [facility] ([id number]) [address] [place] [address] #### 02066-9, PENNY #### [facility] ([id number]) [address], [address] [place] [address] CBC AND AUTO DIFFon 10-11-19 24 ABSOLUTE BASOPHIL 0.0 X10E9/L Normal 0.0-0.2 [facility] Comment on above: Performed By: #### P INR, CBCA #### [facility] ([id number]) [address] [place] [address] ABSOLUTE NEUTROPHIL 8.0 X10E9/L High 1.5-6.6 [facility] Comment on above: Performed By: #### P INR, CBCA #### [facility] ([id number]) [address] [place] [address] 08882 Basophils/100 WBC (Bld) 0.3 % Normal [facility] Comment on above: Performed By: #### P INR, CBCA #### [facility] ([id number]) [address] [place] [address] Eosinophils (Bld) [#/Vol] 0.5 10*3/uL High 0.0-0.4 [facility] Comment on above: Performed By: #### P INR, CBCA #### [facility] ([id number]) [address] [place] [address] 03606 Eosinophils/100 WBC (Bld) 4.4 % Normal [facility] Comment on above: Performed By: #### P INR, CBCA #### [facility] ([id number]) [address] [place] [address] Erythrocyte distribution width (RBC) [Ratio] 16.8 % High 11.5-15.0 [facility] Comment on above: Performed By: #### P INR, CBCA #### [facility] ([id number]) [address] [place] [address] 62319 Hematocrit (Bld) [Volume fraction] 20.1 % Low 39-49 [facility] Comment on above: Performed By: #### P INR, CBCA #### [facility] ([id number]) [address] [place] [address]42[address] Hemoglobin (Bld) [Mass/Vol] 6.6 g/dL Critically low 13.0-17.0 [facility] Comment on above: Performed By: #### P INR, CBCA #### [facility] ([id number]) [address] [place] [address] 03452 Lymphocytes (Bld) [#/Vol] 1.4 10*3/uL Normal 1.0-3.5 [facility] Comment on above: Performed By: #### P INR, CBCA #### [facility] ([id number]) [address] [place] [address] 80488 Lymphocytes/100 WBC (Bld) 13.0 % Normal [facility] Comment on above: Performed By: #### P INR, CBCA #### [facility] ([id number]) [address] [place] [address] 32444 MCH (RBC) [Entitic mass] 24.7 pg Low 27-34 [facility] Comment on above: Performed By: #### P INR, CBCA #### [facility] ([id number]) [address] [place] [address] 66021 MCHC (RBC) [Mass/Vol] 32.6 g/dL Normal 32-[address] [facility] Comment on above: Performed By: #### P INR, CBCA #### [facility] ([id number]) [address] [place] [address] MCV (RBC) [Entitic vol] 76 fL Low 80-100 [facility] Comment on above: Performed By: #### P INR, CBCA #### [facility] ([id number]) [address] [place] [address] 25971 Monocytes (Bld) [#/Vol] 0.9 10*3/uL Normal 0-0.9 [facility] Comment on above: Performed By: #### P INR, CBCA #### [facility] ([id number]) [address] [place] [address], [place] [address] Monocytes/100 WBC (Bld) 8.2 % Normal [facility] Comment on above: Performed By: #### P INR, CBCA #### [facility] ([id number]) [address] [place] [address] 52175 Neutrophils/100 WBC (Bld) 74.1 % Normal [facility] Comment on above: Performed By: #### P INR, CBCA #### [facility] ([id number]) [address] [place] [address] 64908 Platelet mean volume (Bld) [Entitic vol] 7.0 fL Normal 7-12 [facility] Comment on above: Performed By: #### P INR, CBCA #### [facility] ([id number]) [address] [place] [address], [place] [address] Platelets (Bld) [#/Vol] 371 10*3/uL Normal 150-450 [facility] Comment on above: Performed By: #### P INR, CBCA #### [facility] ([id number]) [address] [place] [address] 82660 RBC COUNT 2.66 X10E12/L Low 4.10-5.70 [facility] Comment on above: Performed By: #### P INR, CBCA #### [facility] ([id number]) [address] [place] [address] 30390 WBC (Bld) [#/Vol] 10.8 10*3/uL Normal 4.0-11.[address] [facility] Comment on above: Performed By: #### P INR, CBCA #### [facility] ([id number]) [address] [place] [address] 33685 DNA and RNA Extract and Hold on 10-11-2023 DNA and RNA Extract and Hold SEE COMMENTS 10/14/2023 08:52 AM Normal [facility] Comment on above: Result Comment: [...] Molecular Hematopathology Laboratory's test catalog, please contact [facility] at [phone]. Method summary: DNA and RNA were extracted from the received specimen and stored at -80 C. This test was developed and its performance characteristics determined by [facility] in a manner consistent with CLIA requirements. This test has not been cleared or approved by the U.S. Food and Drug Administration. Test Performed by: [facility] [place] [address] Firmware Software Verification Engineer: Rosie Ruby Ph.D.; CLIA# [id number] Performed By: #### E XHR, 59823-4, MDSDF #### [facility] ([id number]) [address] [place] [address] #### 58433-7, [facility] #### [facility] ([id number]) [address] [place] [address] Flow cytometry specialist re view Álvaro (Unsp spec) [Interp]on 10-11-2023 FLOW CYTOMETRY BM SEE SEPARATE REPORT, REVIEWED BY PATHOLOGIST Normal [facility] Comment on above: Performed By: #### E XHR, 67303-4, MDSDF #### [facility] ([id number]) [address] [place] [address], [place] [address] #### 71892-4, [facility] #### [facility] ([id number]) [address], [address] [place] [address] IR BX AND ASP BONE MARROW SN [...] on the left iliac bone using an [employer] powered bone marrow biopsy system. The bone [...] Guerrero MD on 10/11/2023 9:49 AM Normal [facility] Karyotype Nom (BM)on 10-10- 024 CHROMOSOME BONE MARROW SEE COMMENTS 10/19/2023 02:37 PM Normal [facility] Comment on above: Result Comment: NOTE Test Result Flag Unit RefValue -- Chromosomes, Hematologic, BM Result Summary Normal Interpretation See Note No clonal abnormality was apparent. Since this conventional chromosome study was successful, MDS, Diag FISH was cancelled per lab protocol (Elder Christie et al., [facility], 146:86-94, 2016; [facility] MDS Algorithm: www.[facility] nona hospitalInvivodata.com/it-mmfiles/Myelodysplastic_Syndrome_G uideline_to_Diagnosis_and_Follow-up.pdf). Result 46,XY[20] Reason for Referral leukocytosis [...] was performed at [facility] [employer] site [id number]. Released By Tanvi Loo M.D. Test Performed by: [address] [address] Firmware Software Verification Engineer: Rosie Ruby Ph.D.; CLIA# [id number] Performed By: #### E XHR, 71787-9, MDSDF #### [facility] ([id number]) [address] [place] [address], [place] [address] #### 23487-9, BONWARREN #### [facility] ([id number]) [address] [place] [address], [address] [place] [address] MYELODYSPLASTIC SYNDROME (MD S),DIAGNOSTIC FISH, VARIESon 10-11-2023 MYELODYSPLASTIC SYNDROME (MDS),DIAGNOSTIC FISH, VARIES SEE COMMENTS 10/22/2023 08:45 AM Normal [facility] Comment on above: Result Comment: NOTE Test Result Flag Unit RefValue -- MDS, Diagnostic FISH Interpretation TNP MDS, Diagnostic FISH was cancelled on 10/22/2023 at 08:41; Based on other test results additional testing not required. MDS FISH order was cancelled per laboratory protocol (Elder et al., Amer J Clin Pathol 146:86-94, 2016; [facility] MDS Algorithm: www.castle rockThe Style Clubcallaboratories.com/it-mmfiles/Myelodysplastic_S yndrome_Guideline_ to_Diagnosis_and_Follow-up.pdf) with Probes -RPN1(G)/MECOM(R), -TP53(R)/D17Z1(G), -D8Z2(G)/MYC(R), -W00P421(R)/20QTER(G), -L1F251(G)/EGR1(R), -D7Z1(G)/Z3R449(R) Test Performed by: [address] [address] Firmware Software Verification Engineer: Rosie Ruby Ph.D.; CLIA# [id number] Performed By: #### E XHR, 32093-9, MDSDF #### [facility] ([id number]) [address] [place] [address] #### 56723-5, BONMAR #### [facility] ([id number]) [address] [place] [address], [address] [place] [address] PROTIME AND INRon 10-11-2023 INR Coag (PPP) [Relative time] 1.3 {INR} High 0.8-1.1 [facility] Comment on above: Performed By: #### P INR, CBCA #### [facility] ([id number]) [address] [place] [address] 70221 PT Coag (PPP) [Time] 14.9 s High 9.8-13.2 [facility] Comment on above: Result Comment: NEW REFERENCE RANGE Performed By: #### P INR, CBCA #### [facility] ([id number]) [address] [place] [address] 90114 Surgical Pathologyon 024 Surgical Pathology Normal [facility] Comment on above: Result Comment: [facility] [address] [place] [address] Bone Marrow Consultation Patient Name:GANGA STINSON:1960 (Age: 63)Gender:MTaken:4Reported:4Physician(s):Nina River ([phone])Copy To:Khadar Guerrero M.D. Rec. #:[id number]: #[id number] Final Pathologic Diagnosis Bone marrow, aspiration and [...] acquisition are identified on maturing myeloid cells. Lexa on the lymphoid population demonstrates a mixed population of phenotypically unremarkable T-cells, polyclonal B-cells, and natural killer cells, without a detectable monoclonal population. No monotypic plasma cell population is identified. Immunophenotyping antibodies tested: CD2, CD3, CD4, CD5, CD7, CD8, CD10, CD13, CD16, CD19, CD20 , CD23, CD33, CD34, CD38, CD43, CD45, CD56, CD117, CD123, CD138, Shellman, Lambda. Cytoplasmic Shellman/CD38, Cytoplasmic Lambda/CD38, and intrinsic VS38 Immunophenotyping Comment: Immunophenotyping has been used in this diagnostic evaluation. This test was developed and its performance characteristics determined by the [facility]. It has not been [...] Out Soledad Huynh MD Interpretation performed at [facility], [address] [place] [address], License number: [id number]. Clinical History Leukocytosis. Gross Description 1. Received in B plus fixative labeled ALLOWAY, clot is a friable portion of hemorrhagic material, 2.2 x 1.0 x 0.4 cm in aggregate. The specimen is submitted entirely in a single cassette. (1, ns, [id number], m1) LADONNA 2. Received in B plus fixative labeled ALLOWAY, core is a pale osborne-pardo cylindrical segment of bone with adherent hemorrhagic material, 1.0 cm in length and 0.2 cm in diameter. The specimen is submitted entirely in a single cassette following a period of decalcification in Rapid-Delbert Immuno. (1, ns, [id number], m1) LADONNA Comment: Per epic IR procedure [...] Bah on 06-04-2023 Glucose [Mass/Vol] 134 mg/dL [facility] Comment on above: Random Glucose Refer ence Range is dependent on time and content of last meal. Glucose of more than 200 mg/dL in a nonstressed, ambulatory subject supports the diagnosis of Diabetes Mellitus. Gram stain for investigation of transfusion reactionOrdered By: Jonathan Bah on 06-04-2023 Microscopic observation Gram stain Nom (Unsp spec) Prevotella disiens [facility] Cult,Urineon 09-26-2022 Cult,Urine Specimen Description .CLEAN CATCH URINE Culture NO SIGNIFICANT GROWTH Report Status FINAL 09/26/2022 Normal [facility] Comment on above: Performed By: #### C MPX, CDP #### [facility] [address] [place] [address] Firmware Software Verification Engineer: Khadar Tang MD US RENAL COMPLETEon 09-20-19 [...] Normal [facility] Unremarkable ultraso und of the kidneys and urinary bladder. PN RIS CONSOLIDATED EXAMINATION: RETROPERITONEAL ULTRASOUND OF THE [...] the bladder. No significant post void residual. [facility] RIS CONSOLIDATED Alexander Mcclain, DO - 09/19/2022 [...] ultrasound of the kidneys and urinary bladder. [facility] US RENAL COMPLETEOrdered By: Alexander Mcclain on 09-19-2022 [facility] Work Phone: Basic Metabolic Profon 09-18 Anion gap [Moles/Vol] 10 mmol/L Normal 9-17 [facility] Comment on above: Performed By: #### B MP #### [facility] [address] [place] [address] Firmware Software Verification Engineer: Khadar Tang MD BUN/CRE Ratio 26 High 9-20 [facility] Comment on above: Performed By: #### B MP #### [facility] [address] [place] [address] Firmware Software Verification Engineer: Khadar Tang MD Calcium [Mass/Vol] 9.3 mg/dL Normal 8.6-10.4 [facility] Comment on above: Performed By: #### B MP #### [facility] [address] [place] [address] Firmware Software Verification Engineer: Khadar Tang MD Chloride [Moles/Vol] 105 mmol/L Normal 98-107 [facility] Comment on above: Performed By: #### B MP #### [facility] [address] [place] [address] Firmware Software Verification Engineer: Khadar Tang MD CO2 [Moles/Vol] 22 mmol/L Normal 20-31 [facility] Comment on above: Performed By: #### B MP #### [facility] [address] [place] [address] Firmware Software Verification Engineer: Khadar Tang MD Creatinine [Mass/Vol] 1.25 mg/dL High 0.70-1.20 [facility] Comment on above: Performed By: #### B MP #### [facility] [address] [place] [address] Firmware Software Verification Engineer: Khadar Tang MD GFR/1.73 sq M.predicted among non-blacks MDRD (S/P/Bld) [Vol rate/Area] mL/min/{1.73_m2} Normal >60 [facility] Comment on above: Result Comment: These results [...] secretion. Performed By: #### B MP #### [facility] [address] [place] [address] Firmware Software Verification Engineer: Khadar Tang MD Glucose [Mass/Vol] 186 mg/dL High 70-99 [facility] Comment on above: Performed By: #### B MP #### [facility] [address] [place] [address] Firmware Software Verification Engineer: Khadar Tang MD Potassium [Moles/Vol] 4.1 mmol/L Normal 3.7-5.3 [facility] Comment on above: Performed By: #### B MP #### [facility] [address] [place] [address] Firmware Software Verification Engineer: Khadar Tang MD Sodium [Moles/Vol] 137 mmol/L Normal 135-144 [facility] Comment on above: Performed By: #### B MP #### [address] [place] [address] Firmware Software Verification Engineer: Khadar Tang MD Urea nitrogen [Mass/Vol] 32 mg/dL High 8-23 [facility] Comment on above: Performed By: #### B MP #### [address] [place] [address] Firmware Software Verification Engineer: Khadar Tang MD RENAL COMPLETEon 09-19-19 Radiology Study observation (narrative) [facility] Hemoglobin A1Con 2022 Glucose [Mass/Vol] 171 mg/dL Normal [facility] Comment on above: Result Comment: The ADA and AACC recommend providing the estimated average glucose result to permit better patient understanding of their HBA1c result. Performed By: #### G LYHGB #### [address] [place], [place] [id number] Firmware Software Verification Engineer: Jeff Casanova MD HbA1c (Bld) [Mass fraction] 7.6 % High 4.0-6.0 [facility] Comment on above: Performed By: #### G LYHGB #### [address] [place], [place] 6[address] Firmware Software Verification Engineer: Jeff Casanova MD OPERATIVE REPORTon 3 OPERATIVE REPORT [address] [address] OPERATIVE REPORT PATIENT NAME: GANGA STINSON : 1960 MED REC NO: [id number] ROOM: ACCOUNT NO: [id number] ADMIT DATE: 2022 PROVIDER: Angeles Nagy DATE OF PROCEDURE: 2022 SURGEON: Dr. Angeles Nagy. WOOD POLE TREATER: None. PREOPERATIVE DIAGNOSES: 1. Neurogenic bladder. 2. Urethral stricture. POSTOPERATIVE DIAGNOSES: 1. Neurogenic bladder. 2. Urethral stricture. PROCEDURE PERFORMED: Direct visual internal urethrotomy. ANESTHESIA: General. COMPLICATIONS: None. ESTIMATED BLOOD LOSS: Minimal. SPECIMENS: None. PROSTHESIS: An 18-Bruneian Rowe catheter. DISPOSITION: Stable. FINDINGS: Bulbous urethral stricture. 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 DESCRIPTION OF PROCEDURE: The patient was taken back to the operating room after informed consent including all risks, benefits, and alternatives were obtained. The patient was transferred from the [facility] onto the operating room table, where he was induced under general anesthesia and given IV Ancef for preoperative antibiotic prophylaxis. To begin the case, he was prepped and draped in the normal sterile fashion and placed in dorsal lithotomy. He had a 21-Bruneian sheath with a 30-degree lens passed through [...] then removed the scope and inserted an 18-Bruneian Rowe catheter with ease. He was then awoken from general anesthesia, transferred to the [facility], and taken to the PACU in satisfactory condition by Nursing and Anesthesia Teams. PLAN: The patient will be discharged home per PACU criterion and follow up with me in one week for Rowe catheter removal. ANGELES NAGY ALEX[place]RIA/Jerry_CGGIS_I Doc#: [id number] CC: Normal [facility] Basic Metabolic Panelon 04-0 Anion gap [Moles/Vol] 10 mmol/L 9 - 17 mmol/L [facility] Calcium [Mass/Vol] 8.8 mg/dL 8.6 - 10. 4 mg/dL [facility] Chloride [Moles/Vol] 106 mmol/L 98 - 10 7 mmol/L [facility] CO2 [Moles/Vol] 24 mmol/L 20 - 31 mmol/L [facility] Creatinine [Mass/Vol] 1.3 mg/dL High 0.70 - 1.20 mg/dL [facility] GFR/1.73 sq M.predicted MDRD (S/P/Bld) [Vol rate/Area] - PINF [facility] Comment on above: These results [...] 250 mg/dL High 70 - 99 mg/dL [facility] Interpretation and review of laboratory results Abnormal [facility] Potassium [Moles/Vol] 4.0 mmol/L 3.7 - 5.3 mmol/L [facility] Sodium [Moles/Vol] 140 mmol/L 135 - 144 mmol/L [facility] Urea nitrogen [Mass/Vol] 29 mg/dL High 8 - 23 mg/dL [facility] Urea nitrogen/Creatinine (Bld) [Mass ratio] 22 High 9 - 20 [facility] Basic Metabolic Profon 07-02 Anion gap [Moles/Vol] 10 mmol/L Normal 9-17 [facility] Comment on above: Performed By: #### C MPX, CDP #### [facility] [address] [place] [address] Firmware Software Verification Engineer: Khadar Tang MD BUN/CRE Ratio 22 High 9-20 [facility] Comment on above: Performed By: #### C MPX, CDP #### [facility] [address] [place] [address] Firmware Software Verification Engineer: Khadar Tang MD Calcium [Mass/Vol] 8.8 mg/dL Normal 8.6-10.4 [facility] Comment on above: Performed By: #### C MPX, CDP #### [facility] [address] [place] [address] Firmware Software Verification Engineer: Khadar Tang MD Chloride [Moles/Vol] 106 mmol/L Normal 98-107 [facility] Comment on above: Performed By: #### C MPX, CDP #### [facility] [address] [place] [address] Firmware Software Verification Engineer: Khadar Tang MD CO2 [Moles/Vol] 24 mmol/L Normal 20-31 [facility] Comment on above: Performed By: #### C MPX, CDP #### [facility] [address] [place] [address] Firmware Software Verification Engineer: Khadar Tang MD Creatinine [Mass/Vol] 1.30 mg/dL High 0.70-1.20 [facility] Comment on above: Performed By: #### C MPX, CDP #### [facility] [address] [place] [address] Firmware Software Verification Engineer: Khadar Tang MD GFR/1.73 sq M.predicted among non-blacks MDRD (S/P/Bld) [Vol rate/Area] mL/min/{1.73_m2} Normal >60 [facility] Comment on above: Result Comment: These results [...] Performed By: #### C MPX, CDP #### [facility] [address] [place] [address] Firmware Software Verification Engineer: Khadar Tang MD Glucose [Mass/Vol] 250 mg/dL High 70-99 [facility] Comment on above: Performed By: #### C MPX, CDP #### [facility] [address] [place], [place] [address] Firmware Software Verification Engineer: Khadar Tang MD Potassium [Moles/Vol] 4.0 mmol/L Normal 3.7-5.3 [facility] Comment on above: Performed By: #### C MPX, CDP #### [facility] [address] [place], [place] [address] Firmware Software Verification Engineer: Khadar Tang MD Sodium [Moles/Vol] 140 mmol/L Normal 135-144 [facility] Comment on above: Performed By: #### C MPX, CDP #### [facility] [address] [place], [place] [id number] Firmware Software Verification Engineer: Khadar Tang MD Urea nitrogen [Mass/Vol] 29 mg/dL High 8-23 [facility] Comment on above: Performed By: #### C MPX, CDP #### [facility] [address] [place], [place] [id number] Firmware Software Verification Engineer: Khadar Tang MD CBC with Auto Differentialon 07-02-2022 Absolute Eos # 0.80 High [facility] S [facility] Absolute Immature Granulocyte 0.06 [facility] Absolute Lymph # 1.38 [facility] SEC[facility] U[facility] Absolute Lanier # 0.81 [facility] Basophils Absolute BON SE COURS [facility] Basophils/100 WBC (Bld) 0 % 0 - 2 % [facility] Eosinophils/100 WBC (Bld) 7 % High 1 - 4 % [facility] Hematocrit (Bld) [Volume fraction] 26.8 % Low 40.7 - 50.3 % [facility] Hemoglobin (Bld) [Mass/Vol] 7.9 g/dL Low 13.0 - 17.0 g/dL [facility] Immature granulocytes/100 WBC (Bld) 1 % High 0 [facility] Interpretation and review of laboratory results Abnormal [facility] Lymphocytes/100 WBC (Bld) 13 % Low 24 - 43 % [facility] MCH (RBC) [Entitic mass] 23.3 pg Low 25.2 - 33.5 pg [facility] MCHC (RBC) [Mass/Vol] 29.5 g/dL 28.4 - 34.8 g/dL [facility] MCV (RBC) [Entitic vol] 79.1 fL Low 82.6 - 102.9 fL [facility] Monocytes/100 WBC (Bld) 8 % 3 - 12 % [facility] NRBC Automated 0.0 0.0 per 100 WBC [facility] Platelet distribution width (Bld) [Ratio] 16.1 % High 11.8 - 14.4 % [facility] Platelet mean volume (Bld) [Entitic vol] 9.1 fL 8.1 - 13.5 fL [facility] Platelets (Bld) [#/Vol] 241 10*3/uL [facility] RBC (Bld) [#/Vol] 3.39 10*6/uL Low 4.21 - 5.77 m/uL [facility] Segmented neutrophils/100 WBC (Bld) 71 % High 36 - 65 % [facility] Segs Absolute 7.79 [facility] WBC (Bld) [#/Vol] 10.9 10*3/uL [facility] CBC with Diffon 07-02-2022 Abs. Basophil <0.03 Normal 0.00-0.20 [facility] Comment on above: Performed By: #### C FIFI, CDP #### [facility] [address] [place] [address] [place] [address] Firmware Software Verification Engineer: Khadar Tang MD Abs.Imm.Granulocyte 0.06 k/uL Normal 0.00-0.30 [facility] Comment on above: Performed By: #### C RICHX, CDP #### [facility] [address] [place] [address] Firmware Software Verification Engineer: Khadar Tang MD Abs.Neutrophil (Seg) 7.79 k/uL Normal 1.50-8.10 [facility] Comment on above: Performed By: #### C MPX, CDP #### [facility] [address] [place] [address] [address] [place], [place] [id number] [employer]ware Software Verification Engineer: Khadar Tang MD Basophils/100 WBC (Bld) 0 % Normal 0-2 [facility] Comment on above: Performed By: #### C MPX, CDP #### [address] [place], [facility] [employer] Software Verification Engineer: Khadar Tang MD Eosinophils (Bld) [#/Vol] 0.80 10*3/uL High 0.00-0.44 [facility] Comment on above: Performed By: #### C MPX, CDP #### [address] [place], [facility] [employer]ware Software Verification Engineer: Khadar Tang MD Eosinophils/100 WBC (Bld) 7 % High 1-4 [facility] Comment on above: Performed By: #### C MPX, CDP #### [address] [place], [facility] [employer]ware Software Verification Engineer: Khadar Tang MD Erythrocyte distribution width (RBC) [Ratio] 16.1 % High 11.8-14.4 [facility] Comment on above: Performed By: #### C MPX, CDP #### [address] [place], [facility] [employer] Software Verification Engineer: Khadar Tang MD Hematocrit (Bld) [Volume fraction] 26.8 % Low 40.7-50.3 [facility] Comment on above: Performed By: #### C MPX, CDP #### [address] [place] [address] [place] [address] [employer]ware Software Verification Engineer: Khadar Tang MD Hemoglobin (Bld) [Mass/Vol] 7.9 g/dL Low 13.0-17.0 [facility] Comment on above: Performed By: #### C MPX, CDP #### [address] [place], [place] [id number] [employer]ware Software Verification Engineer: Khadar Tang MD Immature granulocytes/100 WBC (Bld) 1 % High 0 [facility] Comment on above: Performed By: #### C MPX, CDP #### [address] [place], [place] [id number] [employer]ware Software Verification Engineer: Khadar Tang MD Lymphocytes (Bld) [#/Vol] 1.38 10*3/uL Normal 1.10-3.70 [facility] Comment on above: Performed By: #### C MPX, CDP #### [address] [place], [place] [address] Firmware Software Verification Engineer: Khadar Tang MD Lymphocytes/100 WBC (Bld) 13 % Low 24-43 [facility] Comment on above: Performed By: #### C MPX, CDP #### [address] [place], [facility] Firmware Software Verification Engineer: Khadar Tang MD MCH (RBC) [Entitic mass] 23.3 pg Low 25.2-33.5 [facility] Comment on above: Performed By: #### C MPX, CDP #### [address] [place], [place] [id number] [employer]ware Software Verification Engineer: Khadar Tang MD MCHC (RBC) [Mass/Vol] 29.5 g/dL Normal 28.4-34.8 [facility] Comment on above: Performed By: #### C MPX, CDP #### [address] [place], [place] [id number] [employer]ware Software Verification Engineer: Khadar Tang MD MCV (RBC) [Entitic vol] 79.1 fL Low 82.6-102.9 [facility] Comment on above: Performed By: #### C MPX, CDP #### [facility] [address] [place] [address] [place] [address] [employer]ware Software Verification Engineer: Khadar Tang MD Monocytes (Bld) [#/Vol] 0.81 10*3/uL Normal 0.10-1.20 [facility] Comment on above: Performed By: #### C MPX, CDP #### [facility] [address] [place] [address] Firmware Software Verification Engineer: Khadar Tang MD Monocytes/100 WBC (Bld) 8 % Normal 3-12 [facility] Comment on above: Performed By: #### C MPX, CDP #### [facility] [address] [place] [address] [employer]ware Software Verification Engineer: Khadar Tang MD Neutrophil (Seg) 71 % High 36-65 [facility] Comment on above: Performed By: #### C MPX, CDP #### [facility] [address] [place] [address] [employer]ware Software Verification Engineer: Khadar Tang MD NRBC Automated 0.0 per 100 WBC Normal 0.0 [facility] Comment on above: Performed By: #### C MPX, CDP #### [facility] [address] [place], [place] [id number] Firmware Software Verification Engineer: Khadar Tang MD Platelet mean volume (Bld) [Entitic vol] 9.1 fL Normal 8.1-13.5 [facility] Comment on above: Performed By: #### C MPX, CDP #### [facility] [address] [place], [place] [id number] [employer]ware Software Verification Engineer: Khadar Tang MD Platelets (Bld) [#/Vol] 241 10*3/uL Normal 138-453 [facility] Comment on above: Performed By: #### C MPX, CDP #### [facility] [address] [place] [address] Firmware Software Verification Engineer: Khadar Tang MD RBC (Bld) [#/Vol] 3.39 10*6/uL Low 4.21-5.77 [facility] Comment on above: Performed By: #### C MPX, CDP #### [facility] [address] [place] [address] [employer]ware Software Verification Engineer: Khadar Tang MD WBC (Bld) [#/Vol] 10.9 10*3/uL Normal 3.5-11.3 [facility] Comment on above: Performed By: #### C MPX, CDP #### [facility] [address] [place], [place] [id number] [employer] Software Verification Engineer: Khadar Tang MD Cult,Woundon 06-27-2022 Cult,Wound Specimen Description .WOUND Special Requests LEG Direct Exam NO NEUTROPHILS SEEN NO ORGANISMS SEEN Culture NO GROWTH Report Status FINAL 06/27/2022 Normal [facility] Comment on above: Performed By: #### C MPX, CDP #### [facility] [address] [place] [address] [employer]ware Software Verification Engineer: Khadar Tang MD CBC auto differentialon 05-29 Absolute Eos # 0.63 High [facility] Absolute Immature Granulocyte 0.05 [facility] Absolute Lymph # 1.33 [facility] Absolute [place] # 0.82 [facility] Basophils Absolute [facility] Basophils/100 WBC (Bld) 0 % 0 - 2 % [facility] Eosinophils/100 WBC (Bld) 7 % High 1 - 4 % [facility] Hematocrit (Bld) [Volume fraction] 24.4 % Low 40.7 - 50.3 % [facility] Hemoglobin (Bld) [Mass/Vol] 7.6 g/dL Low 13.0 - 17.0 g/dL [facility] Immature granulocytes/100 WBC (Bld) 1 % High 0 [facility] Interpretation and review of laboratory results Abnormal [facility] Lymphocytes/100 WBC (Bld) 14 % Low 24 - 43 % [facility] MCH (RBC) [Entitic mass] 23.8 pg Low 25.2 - 33.5 pg [facility] MCHC (RBC) [Mass/Vol] 31.1 g/dL 28.4 - 34.8 g/dL [facility] MCV (RBC) [Entitic vol] 76.3 fL Low 82.6 - 102.9 fL [facility] Monocytes/100 WBC (Bld) 9 % 3 - 12 % [facility] NRBC Automated 0.0 0.0 per 100 WBC [facility] Platelet distribution width (Bld) [Ratio] 16.0 % High 11.8 - 14.4 % [facility] Platelet mean volume (Bld) [Entitic vol] 8.8 fL 8.1 - 13.5 fL [facility] Platelets (Bld) [#/Vol] 205 10*3/uL [facility] RBC (Bld) [#/Vol] 3.20 10*6/uL Low 4.21 - 5.77 m/uL [facility] Segmented neutrophils/100 WBC (Bld) 69 % High 36 - 65 % [facility] Segs Absolute 6.49 [facility] WBC (Bld) [#/Vol] 9.3 10*3/uL [facility] CBC with Diffon 06-26-2022 Abs. Basophil <0.03 Normal 0.00-0.20 [facility] Comment on above: Performed By: #### C MPX, CDP #### [facility] [address] [place] [address] Firmware Software Verification Engineer: Khadar Tang MD Abs.Imm.Granulocyte 0.05 k/uL Normal 0.00-0.30 [facility] Comment on above: Performed By: #### C MPX, CDP #### [facility] [address] [place] [address] Firmware Software Verification Engineer: Khadar Tang MD Abs.Neutrophil (Seg) 6.49 k/uL Normal 1.50-8.10 [facility] Comment on above: Performed By: #### C MPX, CDP #### [facility] [address] [place], [place] [id number] Firmware Software Verification Engineer: Khadar Tang MD Basophils/100 WBC (Bld) 0 % Normal 0-2 [facility] Comment on above: Performed By: #### C MPX, CDP #### [address] [place], [place] [id number] [employer]ware Software Verification Engineer: Khadar Tang MD Eosinophils (Bld) [#/Vol] 0.63 10*3/uL High 0.00-0.44 [facility] Comment on above: Performed By: #### C MPX, CDP #### [address] [place], [facility]83 Firmware Software Verification Engineer: Khadar Tang MD Eosinophils/100 WBC (Bld) 7 % High 1-4 [facility] Comment on above: Performed By: #### C MPX, CDP #### [address] [place], [facility]83 Firmware Software Verification Engineer: Khadar Tang MD Erythrocyte distribution width (RBC) [Ratio] 16.0 % High 11.8-14.4 [facility] Comment on above: Performed By: #### C MPX, CDP #### [address] [place], [place] [id number] Firmware Software Verification Engineer: Khadar Tang MD Hematocrit (Bld) [Volume fraction] 24.4 % Low 40.7-50.3 [facility] Comment on above: Performed By: #### C MPX, CDP #### [address] [place], [facility]83 Firmware Software Verification Engineer: Khadar Tang MD Hemoglobin (Bld) [Mass/Vol] 7.6 g/dL Low 13.0-17.0 [facility] Comment on above: Performed By: #### C MPX, CDP #### [address] [place] [address] [place] [address] Firmware Software Verification Engineer: Khadar Tang MD Immature granulocytes/100 WBC (Bld) 1 % High 0 [facility] Comment on above: Performed By: #### C MPX, CDP #### [facility] [address] [place] [address] [place] [address] [employer]ware Software Verification Engineer: Khadar Tang MD Lymphocytes (Bld) [#/Vol] 1.33 10*3/uL Normal 1.10-3.70 [facility] Comment on above: Performed By: #### C MPX, CDP #### [facility] [address] [place] [address] [place] [address] [employer]ware Software Verification Engineer: Khadar Tang MD Lymphocytes/100 WBC (Bld) 14 % Low 24-43 [facility] Comment on above: Performed By: #### C MPX, CDP #### [address] [place] [address] [place] [address] Firmware Software Verification Engineer: Khadar Tang MD MCH (RBC) [Entitic mass] 23.8 pg Low 25.2-33.5 [facility] Comment on above: Performed By: #### C MPX, CDP #### [address] [place] [address] [place] [address] Firmware Software Verification Engineer: Khadar Tang MD MCHC (RBC) [Mass/Vol] 31.1 g/dL Normal 28.4-34.8 [facility] Comment on above: Performed By: #### C MPX, CDP #### [facility] [address] [place] [address] Dr. [place], [place] [id number] [employer]ware Software Verification Engineer: Khadar Tang MD MCV (RBC) [Entitic vol] 76.3 fL Low 82.6-102.9 [facility] Comment on above: Performed By: #### C MPX, CDP #### [address] [place] [address] [place] [address] Firmware Software Verification Engineer: Khadar Tang MD Monocytes (Bld) [#/Vol] 0.82 10*3/uL Normal 0.10-1.20 [facility] Comment on above: Performed By: #### C MPX, CDP #### [facility] [address] [place], [place] [id number] [employer]ware Software Verification Engineer: Khadar Tang MD Monocytes/100 WBC (Bld) 9 % Normal 3-12 [facility] Comment on above: Performed By: #### C MPX, CDP #### [facility] [address] [place], [facility] Firmware Software Verification Engineer: Khadar Tang MD Neutrophil (Seg) 69 % High 36-65 [facility] Comment on above: Performed By: #### C MPX, CDP #### [facility] [address] [place], [place] [id number] Firmware Software Verification Engineer: Khadar Tang MD NRBC Automated 0.0 per 100 WBC Normal 0.0 [facility] Comment on above: Performed By: #### C MPX, CDP #### [address] [place] [address] [place] [address] Firmware Software Verification Engineer: Khadar Tang MD Platelet mean volume (Bld) [Entitic vol] 8.8 fL Normal 8.1-13.5 [facility] Comment on above: Performed By: #### C MPX, CDP #### [address] [place], [place] [address] Firmware Software Verification Engineer: Khadar Tang MD Platelets (Bld) [#/Vol] 205 10*3/uL Normal 138-453 [facility] Comment on above: Performed By: #### C MPX, CDP #### [facility] [address] [place] [address] Firmware Software Verification Engineer: Khadar Tang MD RBC (Bld) [#/Vol] 3.20 10*6/uL Low 4.21-5.77 [facility] Comment on above: Performed By: #### C MPX, CDP #### [facility] [address] [place] [place] [address] Firmware Software Verification Engineer: Khadar Tang MD WBC (Bld) [#/Vol] 9.3 10*3/uL Normal 3.5-11.3 [facility] Comment on above: Performed By: #### C MPX, CDP #### [facility] [address] [place] [address] Firmware Software Verification Engineer: Khadar Tang MD EKG Rhythm Stripon 3 rd [facility] Glucose, Whole Bloodon 06-26 Glucose [Mass/Vol] 95 mg/dL 74 - 100 mg/dL [facility] No Panel Informationon 06-26 No dictation [facility] Work Phone: [facility] Work Phone: Surgical Pathologyon 023 Surgical [...] Patient Name: GANGA STINSON [facility] Rec: [id number] Path Number: [id number] [facility] ANATOMIC PATHOLOGY [address] [place] [id number] Normal [facility] Comment on above: Performed By: #### C MPX, CDP #### [facility] [address] [place] [address] [place] [address] Firmware Software Verification Engineer: Khadar Tang MD Blood occult stool #1on 05-29 Date, Stool #1 3 [place] [facility] Comment on above: 30 23 Hemoglobin.gastrointe stinal spec 1 Ql (Stl) Negative NEGATIVE [facility] Time, Stool #1 1945 [place] [facility] CBC auto differentialon 05-29 Absolute Eos # 0.63 High [facility] Absolute Immature Granulocyte 0.07 [facility] Absolute Lymph # 1.63 [facility] Absolute Lanier # 0.76 [facility] Basophils Absolute [facility] Basophils/100 WBC (Bld) 0 % 0 - 2 % [facility] Eosinophils/100 WBC (Bld) 7 % High 1 - 4 % [facility] Hematocrit (Bld) [Volume fraction] 24.6 % Low 40.7 - 50.3 % [facility] Hemoglobin (Bld) [Mass/Vol] 7.6 g/dL Low 13.0 - 17.0 g/dL [facility] Immature granulocytes/100 WBC (Bld) 1 % High 0 [facility] Interpretation and review of laboratory results Abnormal [facility] Lymphocytes/100 WBC (Bld) 19 % Low 24 - 43 % [facility] MCH (RBC) [Entitic mass] 23.7 pg Low 25.2 - 33.5 pg [facility] MCHC (RBC) [Mass/Vol] 30.9 g/dL 28.4 - 34.8 g/dL [facility] MCV (RBC) [Entitic vol] 76.6 fL Low 82.6 - 102.9 fL [facility] Monocytes/100 WBC (Bld) 9 % 3 - 12 % [facility] NRBC Automated 0.0 0.0 per 100 WBC [facility] Platelet distribution width (Bld) [Ratio] 15.9 % High 11.8 - 14.4 % [facility] Platelet mean volume (Bld) [Entitic vol] 8.9 fL 8.1 - 13.5 fL [facility] Platelets (Bld) [#/Vol] 223 10*3/uL [facility] RBC (Bld) [#/Vol] 3.21 10*6/uL Low 4.21 - 5.77 m/uL [facility] Segmented neutrophils/100 WBC (Bld) 64 % 36 - 65 % [facility] Segs Absolute 5.60 [facility] WBC (Bld) [#/Vol] 8.7 10*3/uL [facility] CBC with Diffon 06-25-2022 Abs. Basophil <0.03 Normal 0.00-0.20 [facility] Comment on above: Performed By: #### T ROPI #### [address] [place] [address] Firmware Software Verification Engineer: Khadar Tang MD Abs.Imm.Granulocyte 0.07 k/uL Normal 0.00-0.30 [facility] Comment on above: Performed By: #### T ROPI #### [address] [place], [place] [id number] Firmware Software Verification Engineer: Khadar Tang MD Abs.Neutrophil (Seg) 5.60 k/uL Normal 1.50-8.10 [facility] Comment on above: Performed By: #### T ROPI #### [address] [place], [place] 3601183 [employer]ware Software Verification Engineer: Khadar Tang MD Basophils/100 WBC (Bld) 0 % Normal 0-2 [facility] Comment on above: Performed By: #### T ROPI #### [address] [place], [place] 6170683 [employer]ware Software Verification Engineer: Khadar Tang MD Eosinophils (Bld) [#/Vol] 0.63 10*3/uL High 0.00-0.44 [facility] Comment on above: Performed By: #### T ROPI #### [address] [place] [address] [place] [address] [employer]ware Software Verification Engineer: Khadar Tang MD Eosinophils/100 WBC (Bld) 7 % High 1-4 [facility] Comment on above: Performed By: #### T ROPI #### [facility] [address] [place] [address] Dr. [place], [place] [id number] [employer]ware Software Verification Engineer: Khadar Tang MD Erythrocyte distribution width (RBC) [Ratio] 15.9 % High 11.8-14.4 [facility] Comment on above: Performed By: #### T ROPI #### [facility] [address] [place] [address] [place] [id number] [employer]ware Software Verification Engineer: Khadar Tang MD Hematocrit (Bld) [Volume fraction] 24.6 % Low 40.7-50.3 [facility] Comment on above: Performed By: #### T ROPI #### [address] [place] [id number] [employer]ware Software Verification Engineer: Khadar Tang MD Hemoglobin (Bld) [Mass/Vol] 7.6 g/dL Low 13.0-17.0 [facility] Comment on above: Performed By: #### T ROPI #### [address] [place], [facility] Firmware Software Verification Engineer: Khadar Tang MD Immature granulocytes/100 WBC (Bld) 1 % High 0 [facility] Comment on above: Performed By: #### T ROPI #### [facility] [address] [place] [address] Dr. [place], [facility] Firmware Software Verification Engineer: Khadar Tang MD Lymphocytes (Bld) [#/Vol] 1.63 10*3/uL Normal 1.10-3.70 [facility] Comment on above: Performed By: #### T ROPI #### [address] [place], [place] [id number] [employer]ware Software Verification Engineer: Khadar Tang MD Lymphocytes/100 WBC (Bld) 19 % Low 24-43 [facility] Comment on above: Performed By: #### T ROPI #### [facility] [address] [place], [place] 3785383 Firmware Software Verification Engineer: Khadar Tang MD MCH (RBC) [Entitic mass] 23.7 pg Low 25.2-33.5 [facility] Comment on above: Performed By: #### T ROPI #### [facility] [address] [place] [facility] Firmware Software Verification Engineer: Khadar Tang MD MCHC (RBC) [Mass/Vol] 30.9 g/dL Normal 28.4-34.8 [facility] Comment on above: Performed By: #### T ROPI #### [address] [place] [id number] Firmware Software Verification Engineer: Khadar Tang MD MCV (RBC) [Entitic vol] 76.6 fL Low 82.6-102.9 [facility] Comment on above: Performed By: #### T ROPI #### [address] [place], [facility] Firmware Software Verification Engineer: Khadar Tang MD Monocytes (Bld) [#/Vol] 0.76 10*3/uL Normal 0.10-1.20 [facility] Comment on above: Performed By: #### T ROPI #### [facility] [address] [place], [facility] Firmware Software Verification Engineer: Khadar Tang MD Monocytes/100 WBC (Bld) 9 % Normal 3-12 [facility] Comment on above: Performed By: #### T ROPI #### [facility] [address] [place] [address] Firmware Software Verification Engineer: Khadar Tang MD Neutrophil (Seg) 64 % Normal 36-65 [facility] Comment on above: Performed By: #### T ROPI #### [facility] [address] [place] [facility] Firmware Software Verification Engineer: Khadar Tang MD NRBC Automated 0.0 per 100 WBC Normal 0.0 [facility] Comment on above: Performed By: #### T ROPI #### [facility] [address] [place], [place] [id number] [employer]ware Software Verification Engineer: Khadar Tang MD Platelet mean volume (Bld) [Entitic vol] 8.9 fL Normal 8.1-13.5 [facility] Comment on above: Performed By: #### T ROPI #### [facility] [address] [place], [facility] Firmware Software Verification Engineer: Khadar Tang MD Platelets (Bld) [#/Vol] 223 10*3/uL Normal 138-453 [facility] Comment on above: Performed By: #### T ROPI #### [facility] [address] [place], [facility] Firmware Software Verification Engineer: Khadar Tang MD RBC (Bld) [#/Vol] 3.21 10*6/uL Low 4.21-5.77 [facility] Comment on above: Performed By: #### T ROPI #### [address] [place] [id number] Firmware Software Verification Engineer: Khadar Tang MD WBC (Bld) [#/Vol] 8.7 10*3/uL Normal 3.5-11.3 [facility] Comment on above: Performed By: #### T ROPI #### [facility] [address] [place], [place] [phone] [employer]ware Software Verification Engineer: Khadar Tang MD Comp Metabolic Pr/rfx MGon 0 06-25-2022 Albumin [Mass/Vol] 2.8 g/dL Low 3.5-5.2 [facility] Comment on above: Performed By: #### T ROPI #### [facility] [address] [place] [address] [employer]ware Software Verification Engineer: Khadar Tang MD Albumin/Glob Ratio 0.7 Low 1.0-2.5 [facility] Comment on above: Performed By: #### T ROPI #### [facility] [address] [place], [place] [id number] [employer]ware Software Verification Engineer: Khadar Tang MD Alkaline Phos 75 U/L Normal 40-129 [facility] Comment on above: Performed By: #### T ROPI #### [facility] [address] [place], [place] [id number] [employer]ware Software Verification Engineer: Khadar Tang MD ALT [Catalytic activity/Vol] 9 U/L Normal 5-41 [facility] Comment on above: Performed By: #### T ROPI #### [facility] [address] [place], [place] 7396783 [employer]ware Software Verification Engineer: Khadar Tang MD Anion gap [Moles/Vol] 6 mmol/L Low 9-17 [facility] Comment on above: Performed By: #### T ROPI #### [facility] [address] [place], [place] [id number] Firmware Software Verification Engineer: Khadar Tang MD AST [Catalytic activity/Vol] 10 U/L Normal <40 [facility] Comment on above: Performed By: #### T ROPI #### [facility] [address] [place], [place] [id number] Firmware Software Verification Engineer: Khadar Tang MD Bilirubin [Mass/Vol] 0.3 mg/dL Normal 0.3-1.2 [facility] Comment on above: Performed By: #### T ROPI #### [facility] [address] [place], [place] 1351683 Firmware Software Verification Engineer: Khadar Tang MD BUN/CRE Ratio 20 Normal 9-20 [facility] Comment on above: Performed By: #### T ROPI #### [facility] [address] [place], [place] 2790683 Firmware Software Verification Engineer: Khadar Tang MD Calcium [Mass/Vol] 8.7 mg/dL Normal 8.6-10.4 [facility] Comment on above: Performed By: #### T ROPI #### [facility] [address] [place] [id number] [employer]ware Software Verification Engineer: Khadar Tang MD Chloride [Moles/Vol] 113 mmol/L High 98-107 [facility] Comment on above: Performed By: #### T ROPI #### [facility] [address] [place] [id number] Firmware Software Verification Engineer: Khadar Tang MD CO2 [Moles/Vol] 20 mmol/L Normal 20-31 [facility] Comment on above: Performed By: #### T ROPI #### [facility] [address] [place], [place] 2901683 Firmware Software Verification Engineer: Khadar Tang MD Creatinine [Mass/Vol] 0.97 mg/dL Normal 0.70-1.20 [facility] Comment on above: Performed By: #### T ROPI #### [facility] [address] [place] [address] Firmware Software Verification Engineer: Khadar Tang MD GFR/1.73 sq M.predicted among non-blacks MDRD (S/P/Bld) [Vol rate/Area] mL/min/{1.73_m2} Normal >60 [facility] Comment on above: Result Comment: These results [...] secretion. Performed By: #### T ROPI #### [facility] [address] [place] [address] Firmware Software Verification Engineer: Khadar Tang MD Glucose [Mass/Vol] 144 mg/dL High 70-99 [facility] Comment on above: Performed By: #### T ROPI #### [facility] [address] [place], [place] 1967183 Firmware Software Verification Engineer: Khadar Tang MD Potassium [Moles/Vol] 4.5 mmol/L Normal 3.7-5.3 [facility] Comment on above: Performed By: #### T ROPI #### [facility] [address] [place], [place] 2081183 Firmware Software Verification Engineer: Khadar Tang MD Protein [Mass/Vol] 6.7 g/dL Normal 6.4-8.3 [facility] Comment on above: Performed By: #### T ROPI #### [facility] [address] [place] [address] Firmware Software Verification Engineer: Khadar Tang MD Sodium [Moles/Vol] 139 mmol/L Normal 135-144 [facility] Comment on above: Performed By: #### T ROPI #### [facility] [address] [place] [address] Firmware Software Verification Engineer: Khadar Tang MD Urea nitrogen [Mass/Vol] 19 mg/dL Normal 8-23 [facility] Comment on above: Performed By: #### T ROPI #### [facility] [address] [place] [address] Firmware Software Verification Engineer: Khadar Tang MD Comprehensive Metabolic Pane l w/ Reflex to MGon 06-25-2022 Albumin [Mass/Vol] 2.8 g/dL Low 3.5 - 5.2 g/dL [facility] Albumin/Globulin [Mass ratio] 0.7 {ratio} Low 1.0 - 2.5 [facility] ALP [Catalytic activity/Vol] 75 U/L 40 - 129 U/L [facility] ALT [Catalytic activity/Vol] 9 U/L 5 - 41 U/L [facility] Anion gap [Moles/Vol] 6 mmol/L Low 9 - 17 mmol/L [facility] AST [Catalytic activity/Vol] 10 U/L NINF - 40 U/L [facility] Bilirubin [Mass/Vol] 0.3 mg/dL 0.3 - 1 .2 mg/dL [facility] Calcium [Mass/Vol] 8.7 mg/dL 8.6 - 10. 4 mg/dL [facility] Chloride [Moles/Vol] 113 mmol/L High 98 - 10 7 mmol/L [facility] CO2 [Moles/Vol] 20 mmol/L 20 - 31 mmol/L [facility] Creatinine [Mass/Vol] 0.97 mg/dL 0.70 - 1.20 mg/dL [facility] GFR/1.73 sq M.predicted MDRD (S/P/Bld) [Vol rate/Area] - PINF [facility] Comment on above: These results [...] 144 mg/dL High 70 - 99 mg/dL [facility] Interpretation and review of laboratory results Abnormal [facility] Potassium [Moles/Vol] 4.5 mmol/L 3.7 - 5.3 mmol/L [facility] Protein [Mass/Vol] 6.7 g/dL 6.4 - 8.3 g/dL [facility] Sodium [Moles/Vol] 139 mmol/L 135 - 144 mmol/L [facility] Urea nitrogen [Mass/Vol] 19 mg/dL 8 - 23 mg/dL [facility] Urea nitrogen/Creatinine (Bld) [Mass ratio] 20 9 - 20 [facility] Cult,Woundon 06-25-2022 Cult,Wound Specimen Description .BUTTOCK Direct Exam FEW NEUTROPHILS MODERATE GRAM POSITIVE COCCI IN PAIRS MODERATE GRAM POSITIVE RODS Culture NORMAL SKIN ROBBIE Report Status FINAL 06/25/[address] [facility] Comment on above: Performed By: #### T ROPI #### [facility] [address] [place] [address] [place] [place], [place] [phone] Firmware Software Verification Engineer: Khadar Tang MD EKG Rhythm Stripon 3 [facility] ml [facility] Occult Blood, Fecalon 2022 Occult Blood [address] [facility] Comment on above: Performed By: #### C MPX, CDP #### [facility] [address] [place] [address] Dr. [place], [place] [phone] Firmware Software Verification Engineer: Khadar Tang MD Specimen 1 Date [facility] Comment on above: Result Comment: Performed By: #### C MPX, CDP #### [facility] [address] [place] [address] Dr. [place], [place] [phone] Firmware Software Verification Engineer: Khadar Tang MD Specimen 1 Time 1944 [facility] Comment on above: Performed By: #### C MPX, CDP #### [address] [place], [place] 0819483 Firmware Software Verification Engineer: Khadar Tang MD Surgical Pathologyon 023 Surgical [...] FIBULAR MALLEOLUS,RIGHT ANKLE Gross Description GANGA STINSON, UNDESIGNATED Received in formalin is a 0.8 x 0.2 x 0.1 cm pardo, firm tissue fragment. Totally embedded 1c, decal. tm Microscopic Description Microscopic examination performed. SURGICAL PATHOLOGY CONSULTATION Patient Name: GANGA STINSON [facility] Rec: [id number] Path Number: [id number] [facility] ANATOMIC PATHOLOGY [address] [place] [id number] Normal [facility] Comment on above: Performed By: #### C FIFI, CDP #### [facility] [address] [place] [address] [place] [address] [employer]ware Software Verification Engineer: Khadar Tang MD TYPE AND SCREENon 06-25-2022 ABO/Rh Negative [facility] Arm Band Number [id number] [facility] Blood Bank Blood Product Expiration Date [id number] [facility] Blood Bank ISBT Product Blood Type 9500 [facility] Blood Bank Unit Type and Rh Negative [facility] Blood product type Nom (BPU) Leukocyte Reduced Red Cell [facility] Blood product unit ID (Dose) [#] [id number] [facility] Crossmatch Result [facility] Dispense Status TRANSFUSED [facility] Expiration Date 06/27/2022,2359 [facility] Product Code Blood Bank [id number] [facility] Transfusion Status OK TO TRANSFUSE B ON [facility] Unit Divison 0 [facility] Unit Issue Date/Time [id number] [facility] APTTon 06-24-2022 aPTT Coag (Bld) [Time] 35.6 s High 26.8-34.8 [facility] Comment on above: Result Comment: IV Heparin Therapy Range: 62.0-94.0 Performed By: #### C FIFI, CDP #### [address] [place] [address] Firmware Software Verification Engineer: Khadar Tang MD B12/Folate Panelon Cobalamin (Vitamin B12) [Mass/Vol] 446 pg/mL Normal 232-1245 [facility] Comment on above: Performed By: #### C MPX, CDP #### [facility] [address] [place] [address] Firmware Software Verification Engineer: Khadar Tang MD Folic Acid 8.2 ng/mL Normal >4.8 [facility] Comment on above: Performed By: #### C MPX, CDP #### [facility] [address] [place] [address] Firmware Software Verification Engineer: Khadar Tang MD CBC auto differentialon 05-28 Absolute Eos # 0.46 High [place] [facility] Absolute Immature Granulocyte 0.07 [facility] Absolute Lymph # 1.52 [facility] SEC[facility] URS [facility] Absolute [place]ier # 0.53 [facility] Basophils (Bld) [#/Vol] 0.00 10*3/uL [facility] Hematocrit (Bld) [Volume fraction] 21.7 % Low 40.7 - 50.3 % [facility] Hemoglobin (Bld) [Mass/Vol] 6.6 g/dL Critically low 13.0 - 17.0 g/dL [facility] Interpretation and review of laboratory results Abnormal [facility] MCH (RBC) [Entitic mass] 23.4 pg Low 25.2 - 33.5 pg [facility] MCHC (RBC) [Mass/Vol] 30.4 g/dL 28.4 - 34.8 g/dL [facility] MCV (RBC) [Entitic vol] 77.0 fL Low 82.6 - 102.9 fL [facility] Morphology Álvaro (Bld) [Interp] HYPOCHROMIA PRESENT [facility] NRBC Automated 0.0 0.0 per 100 WBC [facility] Platelet distribution width (Bld) [Ratio] 16.2 % High 11.8 - 14.4 % [facility] Platelet mean volume (Bld) [Entitic vol] 8.9 fL 8.1 - 13.5 fL [facility] Platelets (Bld) [#/Vol] 208 10*3/uL [facility] RBC (Bld) [#/Vol] 2.82 10*6/uL Low 4.21 - 5.77 m/uL [facility] Segmented neutrophils/100 WBC (Bld) 61 % 36 - 65 % [facility] Segs Absolute 4.02 [facility] WBC (Bld) [#/Vol] 6.6 10*3/uL [facility] CBC with Diffon 06-24-2022 Abs. Basophil 0.00 k/uL Normal 0.0-0.2 [facility] Comment on above: Performed By: #### C MPX, CDP #### [facility] [address] [place], [facility] Firmware Software Verification Engineer: Khadar Tang MD Abs.Imm.Granulocyte 0.07 k/uL Normal 0.00-0.30 [facility] Comment on above: Performed By: #### C MPX, CDP #### [facility] [address] [place], [facility] Firmware Software Verification Engineer: Khadar Tang MD Abs.Neutrophil (Seg) 4.02 k/uL Normal 1.50-8.10 [facility] Comment on above: Performed By: #### C MPX, CDP #### [facility] [address] [place], [facility] Firmware Software Verification Engineer: Khadar Tang MD Eosinophils (Bld) [#/Vol] 0.46 10*3/uL High 0.00-0.44 [facility] Comment on above: Performed By: #### C MPX, CDP #### [facility] [address] [place], [place] 8005183 Firmware Software Verification Engineer: Khadar Tang MD Lymphocytes (Bld) [#/Vol] 1.52 10*3/uL Normal 1.10-3.70 [facility] Comment on above: Performed By: #### C MPX, CDP #### [facility] [address] [place], [facility] Firmware Software Verification Engineer: Khadar Tang MD Monocytes (Bld) [#/Vol] 0.53 10*3/uL Normal 0.10-1.20 [facility] Comment on above: Performed By: #### C MPX, CDP #### [facility] [address] [place], [place] [phone] Firmware Software Verification Engineer: Khadar Tang MD Morphology Álvaro (Bld) [Interp] HYPOCHROMIA Normal [facility] Comment on above: Result Comment: PRES ENT Performed By: #### C MPX, CDP #### [facility] [address] [place], [place] [id number] Firmware Software Verification Engineer: Khadar Tang MD Neutrophil (Seg) 61 % Normal 36-65 [facility] Comment on above: Performed By: #### C MPX, CDP #### [address] [place], [place] 6402683 Firmware Software Verification Engineer: Khadar Tang MD Erythrocyte distribution width (RBC) [Ratio] 16.2 % High 11.8-14.4 [facility] Comment on above: Performed By: #### C MPX, CDP #### [address] [place], [place] 1328983 Firmware Software Verification Engineer: Khadar Tang MD Hematocrit (Bld) [Volume fraction] 21.7 % Low 40.7-50.3 [facility] Comment on above: Performed By: #### C MPX, CDP #### [facility] [address] [place] [address] Dr. [place], [place] [id number] Firmware Software Verification Engineer: Khadar Tang MD Hemoglobin (Bld) [Mass/Vol] 6.6 g/dL Critically low 13.0-17.0 [facility] Comment on above: Performed By: #### C MPX, CDP #### [facility] [address] [place] [address] [place]. [place], [place] 7274583 Firmware Software Verification Engineer: Khadar Tang MD MCH (RBC) [Entitic mass] 23.4 pg Low 25.2-33.5 [facility] Comment on above: Performed By: #### C MPX, CDP #### [address] [place] [address] [place] [address] Firmware Software Verification Engineer: Khadar Tang MD MCHC (RBC) [Mass/Vol] 30.4 g/dL Normal 28.4-34.8 [facility] Comment on above: Performed By: #### C MPX, CDP #### [address] [place], [place] 0592183 Firmware Software Verification Engineer: Khadar Tang MD MCV (RBC) [Entitic vol] 77.0 fL Low 82.6-102.9 [facility] Comment on above: Performed By: #### C MPX, CDP #### [address] [place] [address] [place] [address] Firmware Software Verification Engineer: Khadar Tang MD NRBC Automated 0.0 per 100 WBC Normal 0.0 [facility] Comment on above: Performed By: #### C MPX, CDP #### [address] [place], [place] 8961783 Firmware Software Verification Engineer: Khadar Tang MD Platelet mean volume (Bld) [Entitic vol] 8.9 fL Normal 8.1-13.5 [facility] Comment on above: Performed By: #### C MPX, CDP #### [address] [place], [place] 1048983 Firmware Software Verification Engineer: Khadar Tang MD Platelets (Bld) [#/Vol] 208 10*3/uL Normal 138-453 [facility] Comment on above: Performed By: #### C MPX, CDP #### [address] [place] [address] [place] [address] Firmware Software Verification Engineer: Khadar Tang MD RBC (Bld) [#/Vol] 2.82 10*6/uL Low 4.21-5.77 [facility] Comment on above: Performed By: #### C MPX, CDP #### [facility] [address] [place] [address] [place]. [place], [place] 2068783 Firmware Software Verification Engineer: Khadar Tang MD WBC (Bld) [#/Vol] 6.6 10*3/uL Normal 3.5-11.3 [facility] Comment on above: Performed By: #### C MPX, CDP #### [facility] [address] [place] [address] Dr. [place], [place] 0833083 Firmware Software Verification Engineer: Khadar Tang MD Basophils/100 WBC (Bld) 0 % Normal 0-2 [facility] Comment on above: Performed By: #### C MPX, CDP #### [address] [place], [place] 6396283 Firmware Software Verification Engineer: Khadar Tang MD Eosinophils/100 WBC (Bld) 7 % High 1-4 [facility] Comment on above: Performed By: #### C MPX, CDP #### [address] [place], [place] 8624883 Firmware Software Verification Engineer: Khadar Tang MD Immature granulocytes/100 WBC (Bld) 1 % High 0 [facility] Comment on above: Performed By: #### C MPX, CDP #### [address] [place], [place] 8161583 Firmware Software Verification Engineer: Khadar Tang MD Lymphocytes/100 WBC (Bld) 23 % Low 24-43 [facility] Comment on above: Performed By: #### C MPX, CDP #### [address] [place] [address] [place] [address] Firmware Software Verification Engineer: Khadar Tang MD Monocytes/100 WBC (Bld) 8 % Normal 3-12 [facility] Comment on above: Performed By: #### C MPX, CDP #### [address] [place] [address] [place] [address] Firmware Software Verification Engineer: Khadar Tang MD Comp Metabolic Pr/rfx MGon 0 - Albumin [Mass/Vol] 2.4 g/dL Low 3.5-5.2 [facility] Comment on above: Performed By: #### C MPX, CDP #### [facility] [address] [place], [place] 0195383 Firmware Software Verification Engineer: Khadar Tang MD Albumin/Glob Ratio 0.6 Low 1.0-2.5 [facility] Comment on above: Performed By: #### C MPX, CDP #### [facility] [address] [place], [place] 1181783 Firmware Software Verification Engineer: Khadar Tang MD Alkaline Phos 75 U/L Normal 40-129 [facility] Comment on above: Performed By: #### C MPX, CDP #### [facility] [address] [place], [place] [phone] Firmware Software Verification Engineer: Khadar Tang MD ALT [Catalytic activity/Vol] 9 U/L Normal 5-41 [facility] Comment on above: Performed By: #### C MPX, CDP #### [facility] [address] [place], [place] 3560483 Firmware Software Verification Engineer: Khadar Tang MD Anion gap [Moles/Vol] 7 mmol/L Low 9-17 [facility] Comment on above: Performed By: #### C MPX, CDP #### [facility] [address] [place], [place] 4689683 Firmware Software Verification Engineer: Khadar Tang MD AST [Catalytic activity/Vol] 11 U/L Normal <40 [facility] Comment on above: Performed By: #### C MPX, CDP #### [facility] [address] [place] [address] Firmware Software Verification Engineer: Khadar Tang MD Bilirubin [Mass/Vol] mg/dL Low 0.3-1.2 [facility] Comment on above: Performed By: #### C MPX, CDP #### [facility] [address] [place], [place] 5575383 Firmware Software Verification Engineer: Khadar Tang MD BUN/CRE Ratio 23 High 9-20 [facility] Comment on above: Performed By: #### C MPX, CDP #### [facility] [address] [place], [place] 7640283 Firmware Software Verification Engineer: Khadar Tang MD Calcium [Mass/Vol] 8.5 mg/dL Low 8.6-10.4 [facility] Comment on above: Performed By: #### C MPX, CDP #### [facility] [address] [place], [place] 7726583 Firmware Software Verification Engineer: Khadar Tang MD Chloride [Moles/Vol] 115 mmol/L High 98-107 [facility] Comment on above: Performed By: #### C MPX, CDP #### [facility] [address] [place], [place] 7613683 Firmware Software Verification Engineer: Khadar Tang MD CO2 [Moles/Vol] 18 mmol/L Low 20-31 [facility] Comment on above: Performed By: #### C MPX, CDP #### [facility] [address] [place], [place] 6414783 Firmware Software Verification Engineer: Khadar Tang MD Creatinine [Mass/Vol] 1.11 mg/dL Normal 0.70-1.20 [facility] Comment on above: Performed By: #### C MPX, CDP #### [facility] [address] [place] [address] Firmware Software Verification Engineer: Khadar Tang MD GFR/1.73 sq M.predicted among non-blacks MDRD (S/P/Bld) [Vol rate/Area] mL/min/{1.73_m2} Normal >60 [facility] Comment on above: Result Comment: These results [...] Performed By: #### C MPX, CDP #### [facility] [address] [place] [address] Firmware Software Verification Engineer: Khadar Tang MD Glucose [Mass/Vol] 137 mg/dL High 70-99 [facility] Comment on above: Performed By: #### C MPX, CDP #### [address] [place] [address] [place] [address] Firmware Software Verification Engineer: Khadar Tang MD Potassium [Moles/Vol] 4.9 mmol/L Normal 3.7-5.3 [facility] Comment on above: Performed By: #### C MPX, CDP #### [address] [place], [place] 0836983 Firmware Software Verification Engineer: Khadar Tang MD Protein [Mass/Vol] 6.3 g/dL Low 6.4-8.3 [facility] Comment on above: Performed By: #### C MPX, CDP #### [facility] [address] [place] [address] [place] [address] Firmware Software Verification Engineer: Khadar Tang MD Sodium [Moles/Vol] 140 mmol/L Normal 135-144 [facility] Comment on above: Performed By: #### C MPX, CDP #### [address] [place] [address] [place] [address] Firmware Software Verification Engineer: Khadar Tang MD Urea nitrogen [Mass/Vol] 26 mg/dL High 8-23 [facility] Comment on above: Performed By: #### C MPX, CDP #### [facility] [address] [place] [address] Firmware Software Verification Engineer: Khadar Tang MD Comprehensive Metabolic Pane l w/ Reflex to MGon 06-24-2022 Albumin [Mass/Vol] 2.4 g/dL Low 3.5 - 5.2 g/dL [facility] Albumin/Globulin [Mass ratio] 0.6 {ratio} Low 1.0 - 2.5 [facility] ALP [Catalytic activity/Vol] 75 U/L 40 - 129 U/L [facility] ALT [Catalytic activity/Vol] 9 U/L 5 - 41 U/L [facility] Anion gap [Moles/Vol] 7 mmol/L Low 9 - 17 mmol/L [facility] AST [Catalytic activity/Vol] 11 U/L NINF - 40 U/L [facility] Bilirubin [Mass/Vol] mg/dL Low 0.3 - 1 .2 mg/dL [facility] Calcium [Mass/Vol] 8.5 mg/dL Low 8.6 - 10. 4 mg/dL [facility] Chloride [Moles/Vol] 115 mmol/L High 98 - 10 7 mmol/L [facility] CO2 [Moles/Vol] 18 mmol/L Low 20 - 31 mmol/L [facility] Creatinine [Mass/Vol] 1.11 mg/dL 0.70 - 1.20 mg/dL [facility] GFR/1.73 sq M.predicted MDRD (S/P/Bld) [Vol rate/Area] - PINF [facility] Comment on above: These results [...] 137 mg/dL High 70 - 99 mg/dL [facility] Interpretation and review of laboratory results Abnormal [facility] Potassium [Moles/Vol] 4.9 mmol/L 3.7 - 5.3 mmol/L [facility] Protein [Mass/Vol] 6.3 g/dL Low 6.4 - 8.3 g/dL [facility] Sodium [Moles/Vol] 140 mmol/L 135 - 144 mmol/L [facility] Urea nitrogen [Mass/Vol] 26 mg/dL High 8 - 23 mg/dL [facility] Urea nitrogen/Creatinine (Bld) [Mass ratio] 23 High 9 - 20 [facility] Culture, Wound Aerobic Onlyo n 06-24-2022 Interpretation and review of laboratory results Abnormal [facility] Microorganism identified Cx Nom (Unsp spec) NORMAL SKIN ROBBIE [facility] Microorganism or agent identified Nom (Unsp spec) FEW NEUTROPHILS Abnormal [facility] Specimen Description .BUTTOCK Hammerless EKG 12 Leadon 06-24-2022 Atrial Rate 64 BPM [facility] Work Phone: P [place] 51 degrees [facility] Work Phone: P-R Interval 174 ms [facility] Work Phone: Q-T Interval 394 ms [facility] Work Phone: QRS Duration 94 ms [facility] Work Phone: QTc Calculation (Bazett) 406 ms [facility] Work Phone: R [place] 20 degrees [facility] Work Phone: T [place] 22 degrees [facility] Work Phone: Ventricular Rate 64 BPM B[facility] [employer] Work Phone: Normal sinus rhythm Inferior infarct , age undetermined Abnormal ECG When compared with ECG of 22-JUN-2022 17:28, Minimal criteria for Inferior infarct is now Present Confirmed by Michelle Noe MD ([id number]) on 06/24/2022 10:31:37 PM [facility] RADIOLOGY Michelle Noe MD - 06/24/2022 Normal sinus rhythm Inferior infarct , age undetermined Abnormal ECG When compared with ECG of 22-JUN-2022 17:28, Minimal criteria for Inferior infarct is now Present Confirmed by Michelle Noe MD ([id number]) on 06/24/2022 10:31:37 PM [facility] [employer] Work Phone: [employer] Work Phone: EKG Rhythm Stripon 3 [facility] ML [facility] Echocardiogram complete 2D w ith doppler with coloron 06-24-2022 Left ventricular Ejection fraction 60 [facility] [employer] Work Phone: LVEF MODALITY ECHO [facility] EPS Phone: [facility] Transthoracic Echocardiography Report (TTE) Patient Name ALLOWAY Date of Study 06/24/2022 GANGA Evans Date of 1960 Gender Male Age 61 year(s) Race Room Number 0334 Height: 71 inch, 180.34 cm Corporate ID [id number] Weight: 252 pounds, 114.3 kg # Patient Acct [id number] BSA: 2.33 m^2 BMI: 35.15 kg/m^2 # MR # [id number] Plant Pathologist Jeanette Clarke Interpreting Physician Michelle Noe Fellow Referring Nurse Shelly Mondragon, Practitioner DOLLY Interpreting Referring Physician Fellow Type of Study TTE procedure:2D Echocardiogram, M-Mode, Doppler, Color Doppler. Procedure Date Date: 06/24/2022 Start: 09:47 AM Study Location: [facility] Indications:Abnormal ECG. History / Tech. Comments: Abn [...] MD / Result, Unknown Provider - 06/24/2022 [facility] Transthoracic Echocardiography Report (TTE) Patient Name ALLOWAY Date of Study 06/24/2022 GANGA Cristina Date of 1960 Gender Male Age 61 year(s) Race Room Number 0334 Height: 71 inch, 180.34 cm Corporate ID [id number] Weight: 252 pounds, 114.3 kg # Patient Acct [id number] BSA: 2.33 m^2 BMI: 35.15 kg/m^2 # MR # [id number] Plant Pathologist Jeanette Clarke Interpreting Physician Michelle Noe Fellow Referring Nurse Shelly Mondragon, Practitioner DOLLY Interpreting Referring Physician Fellow Type of Study TTE procedure:2D Echocardiogram, M-Mode, Doppler, Color Doppler. Procedure Date Date: 06/24/2022 Start: 09:47 AM Study Location: [facility] Indications:Abnormal ECG. History / Tech. Comments: Abn [...] Wall E' velocity:0.13 m/s Lateral Wall E/E':9.8 [facility] Work Phone: [facility] Work Phone: Glucose, Whole Bloodon 06-24 Glucose [Mass/Vol] 114 mg/dL High 74 - 100 mg/dL [facility] Interpretation and review of laboratory results Abnormal [facility] Hemoglobin and Hematocriton 06-24-2022 Hematocrit (Bld) [Volume fraction] 25.1 % Low 40.7 - 50.3 % [facility] Hemoglobin (Bld) [Mass/Vol] 7.8 g/dL Low 13.0 - 17.0 g/dL [facility] Interpretation and review of laboratory results Abnormal [facility] Hgb/Hcton 06-24-2022 Hematocrit (Bld) [Volume fraction] 25.1 % Low 40.7-50.3 [facility] Comment on above: Performed By: #### C MPX, CDP #### [facility] [address] [place] [address] [address] [place] [address] [employer] Verification Engineer: Khadar Tang MD Hemoglobin (Bld) [Mass/Vol] 7.8 g/dL Low 13.0-17.0 [facility] Comment on above: Performed By: #### C MPX, CDP #### [facility] [address] [place] [address] [employer] Verification Engineer: Khadar Tang MD Iron Binding Cap.on 06-25-19 23 % Fe Saturation 19 % Low 20-55 [facility] Comment on above: Performed By: #### C MPX, CDP #### [facility] [address] [place] [address] [employer] Software Verification Engineer: Khadar Tang MD Iron [Mass/Vol] 33 ug/dL Low 59-158 [facility] Comment on above: Performed By: #### C MPX, CDP #### [facility] [address] [place], [place] [address] [employer] Software Verification Engineer: Khadar Tang MD Total Fe Binding Cap 175 ug/dL Low 250-450 [facility] Comment on above: Performed By: #### C MPX, CDP #### [facility] [address] [place], [place] [address] [employer] Software Verification Engineer: Khadar Tang MD Unbound Fe Bind Cap 142 ug/dL Normal 112-347 [facility] Comment on above: Performed By: #### C MPX, CDP #### [facility] [address] [place], [place] [address] [employer] Verification Engineer: Khadar Tang MD Iron and TIBCon 06-24-2022 Interpretation and review of laboratory results Abnormal [facility] Iron [Mass/Vol] 33 ug/dL Low 59 - 158 ug/dL [facility] Iron binding capacity [Mass/Vol] 175 ug/dL Low 250 - 450 ug/dL [facility] Iron Saturation 19 % Low 20 - 55 % [facility] UIBC 142 ug/dL 112 - 347 ug/dL [facility] Laboratory - Microbiology an d Antimicrobial susceptibilityon 06-24-2022 Microorganism or agent identified Nom (Unsp spec) Positive Abnormal [facility] Lipid Panelon 06-24-2022 Cholesterol [Mass/Vol] 147 mg/dL NINF - 200 mg/dL [facility] Comment on above: Cholesterol Guidelines: <200 Desirable 200-240 Borderline >240 Undesirable Cholesterol in HDL [Mass/Vol] 28 mg/dL Low 40 - PINF mg/dL [facility] Comment on above: HDL Guidelines: <40 Undesirable 40-59 Borderline >59 Desirable Cholesterol in LDL [Mass/Vol] 98 mg/dL 0 - 130 mg/dL [facility] Comment on above: LDL Guidelines: <100 Desirable 100-129 Near to/above Desirable 130-159 Borderline >159 Undesirable Direct (measured) LDL and calculated LDL are not interchangeable tests. Cholesterol.total/Cho lesterol in HDL [Mass ratio] 5.3 {ratio} High NINF - 5 [facility] Interpretation and review of laboratory results Abnormal [facility] Triglyceride [Mass/Vol] 107 mg/dL NINF - 150 mg/dL [facility] Comment on above: Triglyceride Guidelines: <150 Desirable 150-199 Borderline 200-499 High >499 Very high Based on AHA Guidelines for fasting triglyceride, December 2011. [facility] Lipid Profileon 06-24-2022 Cholesterol [Mass/Vol] 147 mg/dL Normal <200 [facility] Comment on above: Result Comment: Cholesterol Guidelines: <200 Desirable 200-240 Borderline >240 Undesirable Performed By: #### T ROPI #### [facility] [address] [place] [address] [employer] Verification Engineer: Khadar Tang MD Cholesterol in HDL [Mass/Vol] 28 mg/dL Low >40 [facility] Comment on above: Result Comment: HDL Guidelines: <40 Undesirable 40-59 Borderline >59 Desirable Performed By: #### T ROPI #### [facility] [address] [place] [address] [employer] Verification Engineer: Khadar Tang MD Cholesterol in LDL [Mass/Vol] 98 mg/dL Normal 0-130 [facility] Comment on above: Result Comment: LDL Guidelines: <100 Desirable 100-129 Near to/above Desirable 130-159 Borderline >159 Undesirable Direct (measured) LDL and calculated LDL are not interchangeable tests. Performed By: #### T ROPI #### [facility] [address] [place] [address] [employer] Verification Engineer: Khadar Tang MD Cholesterol.total/Cho lesterol in HDL [Mass ratio] 5.3 {ratio} High <5 [facility] Comment on above: Performed By: #### T ROPI #### [facility] [address] [place] [address] [employer] Verification Engineer: Khadar Tang MD Triglyceride [Mass/Vol] 107 mg/dL Normal <150 [facility] Comment on above: Result Comment: Triglyceride Guidelines: <150 Desirable 150-199 Borderline 200-499 High >499 Very high Based on AHA Guidelines for fasting triglyceride, December 2011. Performed By: #### T BRENDA #### [facility] [address] [place] [address] [employer] Verification Engineer: Khadar Tang MD PTon 06-24-2022 INR Coag (PPP) [Relative time] 1.1 {INR} Normal [facility] Comment on above: Result Comment: Therapeutic Range: Moderate Anticoagulant Intensity: INR = 2.0-3.0 High Anticoagulant Intensity: INR = 2.5-3.5 Performed By: #### C MPX, CDP #### [facility] [address] [place] [address] [employer] Verification Engineer: Khadar Tang MD PT Coag (PPP) [Time] 14.8 s Normal 11.9-14.8 [facility] Comment on above: Performed By: #### C MPX, CDP #### [facility] [address] [place], [place] [address] [employer] Software Verification Engineer: Khadar Tang MD PTTon 06-24-2022 aPTT Coag (Bld) [Time] 35.6 s High [facility] Comment on above: IV Heparin Therapy Range: 62.0-94.0 Interpretation and review of laboratory results Abnormal [facility] Protime-INRon 06-24-2022 INR Coag (PPP) [Relative time] 1.1 {INR} [facility] Comment on above: Therapeutic Range: Moderate Anticoagulant Intensity: INR = 2.0-3.0 High Anticoagulant Intensity: INR = 2.5-3.5 PT Coag (PPP) [Time] 14.8 s [facility] Troponinon 06-24-2022 Troponin, High Sens 57 ng/L Critically high 0-22 [facility] Comment on above: Result Comment: High Sensitivity Troponin values cannot be compared with other Troponin methodologies. Performed By: #### C MPX, CDP #### [facility] [address] [place] [address] [employer] Software Verification Engineer: Khadar Tang MD Interpretation and review of laboratory results Abnormal [facility] Troponin I.cardiac DL <= 0.01 ng/mL [Mass/Vol] 57 ng/L Critically high 0 - 22 ng/L [facility] Comment on above: High Sensitivity Tro ponin values cannot be compared with other Troponin methodologies. [facility] Troponin, High Sens 58 ng/L Critically high 0-22 [facility] Comment on above: Result Comment: High Sensitivity Troponin values cannot be compared with other Troponin methodologies. Performed By: #### T ROPI #### [facility] [address] [place] [address] [place] [address] [employer] Software Verification Engineer: Khadar Tang MD Interpretation and review of laboratory results Abnormal [facility] Troponin I.cardiac DL <= 0.01 ng/mL [Mass/Vol] 58 ng/L Critically high 0 - 22 ng/L [facility] Comment on above: High Sensitivity Tro ponin values cannot be compared with other Troponin methodologies. [facility] Troponin, High Sens 59 ng/L Critically high 022 [facility] Comment on above: Result Comment: High Sensitivity Troponin values cannot be compared with other Troponin methodologies. Performed By: #### C MPX, CDP #### [facility] [address] [place] [address] [place] [address] [employer] Software Verification Engineer: Khadar Tang MD Interpretation and review of laboratory results Abnormal [facility] Troponin I.cardiac DL <= 0.01 ng/mL [Mass/Vol] 59 ng/L Critically high 0 - 22 ng/L [facility] Comment on above: High Sensitivity Tro ponin values cannot be compared with other Troponin methodologies. [facility] Type + Screenon 06-24-2022 Type + Screen Sample Expiration 06/27/2022,2359 Arm Band Number [id number] ABO/Rh(D) A NEGATIVE Antibody Screen NEGATIVE Unit Number [id number] Blood Component Type Leukocyte Reduced Red Cell Unit Division 00 Status of Unit TRANSFUSED Transfusion Status OK TO TRANSFUSE Crossmatch Result COMPATIBLE Normal [facility] Comment on above: Performed By: #### C MPX, CDP #### [facility] [address] [place] [address] [employer] Software Verification Engineer: Khadar aTng MD Vitamin B12 & Folateon 06-24 Cobalamin (Vitamin B12) [Mass/Vol] 446 pg/mL 232 - 1245 pg/mL [facility] Folate [Mass/Vol] 8.2 ng/mL 4.8 - PINF ng/mL [facility] CBC auto differentialon 05-28 Absolute Eos # 0.65 High [facility] Absolute Immature Granulocyte 0.06 [facility] Absolute Lymph # 1.94 [facility] Absolute Lanier # 0.72 [facility] Basophils (Bld) [#/Vol] 0.04 10*3/uL [facility] Basophils/100 WBC (Bld) 0 % 0 - 2 % [facility] Eosinophils/100 WBC (Bld) 7 % High 1 - 4 % [facility] Hematocrit (Bld) [Volume fraction] 25.0 % Low 40.7 - 50.3 % [facility] Hemoglobin (Bld) [Mass/Vol] 7.5 g/dL Low 13.0 - 17.0 g/dL [facility] Immature granulocytes/100 WBC (Bld) 1 % High 0 [facility] Interpretation and review of laboratory results Abnormal [facility] Lymphocytes/100 WBC (Bld) 22 % Low 24 - 43 % [facility] MCH (RBC) [Entitic mass] 23.3 pg Low 25.2 - 33.5 pg [facility] MCHC (RBC) [Mass/Vol] 30.0 g/dL 28.4 - 34.8 g/dL [facility] MCV (RBC) [Entitic vol] 77.6 fL Low 82.6 - 102.9 fL [facility] Monocytes/100 WBC (Bld) 8 % 3 - 12 % [facility] NRBC Automated 0.0 0.0 per 100 WBC [facility] Platelet distribution width (Bld) [Ratio] 16.4 % High 11.8 - 14.4 % [facility] Platelet mean volume (Bld) [Entitic vol] 8.7 fL 8.1 - 13.5 fL [facility] Platelets (Bld) [#/Vol] 263 10*3/uL [facility] RBC (Bld) [#/Vol] 3.22 10*6/uL Low 4.21 - 5.77 m/uL [facility] Segmented neutrophils/100 WBC (Bld) 62 % 36 - 65 % [facility] Segs Absolute 5.55 [facility] WBC (Bld) [#/Vol] 9.0 10*3/uL [facility] CBC with Diffon 06-23-2022 Abs. Basophil 0.04 k/uL Normal 0.00-0.20 [facility] Comment on above: Performed By: #### C MPX, CDP #### [facility] [address] [place] [address] [address] [place] [address] [employer] Verification Engineer: Khadar Tang MD Abs.Imm.Granulocyte 0.06 k/uL Normal 0.00-0.30 [facility] Comment on above: Performed By: #### C MPX, CDP #### [facility] [address] [place] [address] Dr. [place] [id number] [employer] Verification Engineer: Khadar Tang MD Abs.Neutrophil (Seg) 5.55 k/uL Normal 1.50-8.10 [facility] Comment on above: Performed By: #### C MPX, CDP #### [facility] [address] [place], [place] [id number] [employer] Verification Engineer: Khadar Tang MD Basophils/100 WBC (Bld) 0 % Normal 0-2 [facility] Comment on above: Performed By: #### C MPX, CDP #### [facility] [address] [place], [place] [id number] [employer] Software Verification Engineer: Khadar Tang MD Eosinophils (Bld) [#/Vol] 0.65 10*3/uL High 0.00-0.44 [facility] Comment on above: Performed By: #### C MPX, CDP #### [address] [place], [place] [id number] [employer] Software Verification Engineer: Khadar Tang MD Eosinophils/100 WBC (Bld) 7 % High 1-4 [facility] Comment on above: Performed By: #### C MPX, CDP #### [address] [place] [address] [employer]ware Software Verification Engineer: Khadar Tang MD Erythrocyte distribution width (RBC) [Ratio] 16.4 % High 11.8-14.4 [facility] Comment on above: Performed By: #### C MPX, CDP #### [address] [place], [facility] Firmware Software Verification Engineer: Khadar Tang MD Hematocrit (Bld) [Volume fraction] 25.0 % Low 40.7-50.3 [facility] Comment on above: Performed By: #### C MPX, CDP #### [address] [place] [address] [employer] Software Verification Engineer: Khadar Tang MD Hemoglobin (Bld) [Mass/Vol] 7.5 g/dL Low 13.0-17.0 [facility] Comment on above: Performed By: #### C MPX, CDP #### [address] [place], [place] [id number] [employer] Software Verification Engineer: Khadar Tang MD Immature granulocytes/100 WBC (Bld) 1 % High 0 [facility] Comment on above: Performed By: #### C MPX, CDP #### [address] [place], [place] 4856383 [employer]ware Software Verification Engineer: Khadar Tang MD Lymphocytes (Bld) [#/Vol] 1.94 10*3/uL Normal 1.10-3.70 [facility] Comment on above: Performed By: #### C MPX, CDP #### [facility] [address] [place] [address] [address] [place], [place] [id number] [employer]ware Software Verification Engineer: Khadar Tang MD Lymphocytes/100 WBC (Bld) 22 % Low 24-43 [facility] Comment on above: Performed By: #### C MPX, CDP #### [facility] [address] [place], [facility] [employer] Software Verification Engineer: Khadar Tang MD MCH (RBC) [Entitic mass] 23.3 pg Low 25.2-33.5 [facility] Comment on above: Performed By: #### C MPX, CDP #### [address] [place], [facility] [employer] Verification Engineer: Khadar Tang MD MCHC (RBC) [Mass/Vol] 30.0 g/dL Normal 28.4-34.8 [facility] Comment on above: Performed By: #### C MPX, CDP #### [address] [place], [place] [id number] [employer] Software Verification Engineer: Khadar Tang MD MCV (RBC) [Entitic vol] 77.6 fL Low 82.6-102.9 [facility] Comment on above: Performed By: #### C MPX, CDP #### [address] [place], [place] 2738483 [employer] Software Verification Engineer: Khadar Tang MD Monocytes (Bld) [#/Vol] 0.72 10*3/uL Normal 0.10-1.20 [facility] Comment on above: Performed By: #### C MPX, CDP #### [address] [place] [address] [employer]ware Software Verification Engineer: Khadar Tang MD Monocytes/100 WBC (Bld) 8 % Normal 3-12 [facility] Comment on above: Performed By: #### C MPX, CDP #### [facility] [address] [place], [place] [id number] [employer] Software Verification Engineer: Khadar Tang MD Neutrophil (Seg) 62 % Normal 36-65 [facility] Comment on above: Performed By: #### C MPX, CDP #### [facility] [address] [place], [place] [id number] [employer] Software Verification Engineer: Khadar Tang MD NRBC Automated 0.0 per 100 WBC Normal 0.0 [facility] Comment on above: Performed By: #### C MPX, CDP #### [address] [place], [place] [id number] [employer] Software Verification Engineer: Khadar Tang MD Platelet mean volume (Bld) [Entitic vol] 8.7 fL Normal 8.1-13.5 [facility] Comment on above: Performed By: #### C MPX, CDP #### [address] [place], [place] [id number] [employer] Verification Engineer: Khadar Tang MD Platelets (Bld) [#/Vol] 263 10*3/uL Normal 138-453 [facility] Comment on above: Performed By: #### C MPX, CDP #### [address] [place], [place] [id number] [employer] Software Verification Engineer: Khadar Tang MD RBC (Bld) [#/Vol] 3.22 10*6/uL Low 4.21-5.77 [facility] Comment on above: Performed By: #### C MPX, CDP #### [address] [place] [address] [employer]ware Software Verification Engineer: Khadar Tang MD WBC (Bld) [#/Vol] 9.0 10*3/uL Normal 3.5-11.3 [facility] Comment on above: Performed By: #### C MPX, CDP #### [address] [place], [place] 1454283 [employer] Software Verification Engineer: Khadar Tang MD Comp Metabolic Pr/rfx MGon 0 - Albumin [Mass/Vol] 2.9 g/dL Low 3.5-5.2 [facility] Comment on above: Performed By: #### C MPX, CDP #### [facility] [address] [place], [place] [id number] [employer] Software Verification Engineer: Khadar Tang MD Albumin/Glob Ratio 0.7 Low 1.0-2.5 [facility] Comment on above: Performed By: #### C MPX, CDP #### [facility] [address] [place], [place] 7672383 [employer]ware Software Verification Engineer: Khadar Tang MD Alkaline Phos 89 U/L Normal 40-129 [facility] Comment on above: Performed By: #### C MPX, CDP #### [facility] [address] [place], [place] 4139283 [employer]ware Software Verification Engineer: Khadar Tang MD ALT [Catalytic activity/Vol] 11 U/L Normal 5-41 [facility] Comment on above: Performed By: #### C MPX, CDP #### [address] [place], [place] [phone] [employer]ware Software Verification Engineer: Khadar Tang MD Anion gap [Moles/Vol] 8 mmol/L Low 9-17 [facility] Comment on above: Performed By: #### C MPX, CDP #### [facility] [address] [place], [place] 5088483 [employer]ware Software Verification Engineer: Khadar Tang MD AST [Catalytic activity/Vol] 12 U/L Normal <40 [facility] Comment on above: Performed By: #### C MPX, CDP #### [facility] [address] [place], [place] 9654983 [employer] Software Verification Engineer: Khadar Tang MD Bilirubin [Mass/Vol] 0.2 mg/dL Low 0.3-1.2 [facility] Comment on above: Performed By: #### C MPX, CDP #### [facility] [address] [place] [address] [employer]ware Software Verification Engineer: Khadar Tang MD BUN/CRE Ratio 25 High 9-20 [facility] Comment on above: Performed By: #### C MPX, CDP #### [facility] [address] [place], [place] 3367583 [employer]ware Software Verification Engineer: Khadar Tang MD Calcium [Mass/Vol] 9.0 mg/dL Normal 8.6-10.4 [facility] Comment on above: Performed By: #### C MPX, CDP #### [facility] [address] [place], [place] 7851283 [employer] Software Verification Engineer: Khadar Tang MD Chloride [Moles/Vol] 115 mmol/L High 98-107 [facility] Comment on above: Performed By: #### C MPX, CDP #### [facility] [address] [place], [place] 5349983 [employer]ware Software Verification Engineer: Khadar Tang MD CO2 [Moles/Vol] 17 mmol/L Low 20-31 [facility] Comment on above: Performed By: #### C MPX, CDP #### [facility] [address] [place], [place] 5601083 [employer]ware Software Verification Engineer: Khadar Tang MD Creatinine [Mass/Vol] 1.55 mg/dL High 0.70-1.20 [facility] Comment on above: Performed By: #### C MPX, CDP #### [facility] [address] [place] [address] [employer] Software Verification Engineer: Khadar Tang MD GFR/1.73 sq M.predicted among non-blacks MDRD (S/P/Bld) [Vol rate/Area] 51 mL/min/{1.73_m2} Low >60 [facility] Comment on above: Result Comment: These results [...] Performed By: #### C MPX, CDP #### [facility] [address] [place] [address] [address] [place], [place] 9066583 [employer] Software Verification Engineer: Khadar Tang MD Glucose [Mass/Vol] 119 mg/dL High 70-99 [facility] Comment on above: Performed By: #### C MPX, CDP #### [address] [place], [place] [address]30883 [employer]ware Software Verification Engineer: Khadar Tang MD Potassium [Moles/Vol] 5.4 mmol/L High 3.7-5.3 [facility] Comment on above: Performed By: #### C MPX, CDP #### [address] [place], [place] 3151883 [employer] Software Verification Engineer: Khadar Tang MD Protein [Mass/Vol] 7.1 g/dL Normal 6.4-8.3 [facility] Comment on above: Performed By: #### C MPX, CDP #### [facility] [address] [place] [address] [place] [address] [employer] Software Verification Engineer: Khadar Tang MD Sodium [Moles/Vol] 140 mmol/L Normal 135-144 [facility] Comment on above: Performed By: #### C MPX, CDP #### [address] [place] [address] [employer]ware Software Verification Engineer: Khadar Tang MD Urea nitrogen [Mass/Vol] 38 mg/dL High 8-23 [facility] Comment on above: Performed By: #### C MPX, CDP #### [facility] [address] [place] [address] [employer] Software Verification Engineer: Khadar Tang MD Comprehensive Metabolic Pane l w/ Reflex to MGon 06-23-2022 Albumin [Mass/Vol] 2.9 g/dL Low 3.5 - 5.2 g/dL [facility] Albumin/Globulin [Mass ratio] 0.7 {ratio} Low 1.0 - 2.5 [facility] ALP [Catalytic activity/Vol] 89 U/L 40 - 129 U/L [facility] ALT [Catalytic activity/Vol] 11 U/L 5 - 41 U/L [facility] Anion gap [Moles/Vol] 8 mmol/L Low 9 - 17 mmol/L [facility] AST [Catalytic activity/Vol] 12 U/L NINF - 40 U/L [facility] Bilirubin [Mass/Vol] 0.2 mg/dL Low 0.3 - 1 .2 mg/dL [facility] Calcium [Mass/Vol] 9.0 mg/dL 8.6 - 10. 4 mg/dL [facility] Chloride [Moles/Vol] 115 mmol/L High 98 - 10 7 mmol/L [facility] CO2 [Moles/Vol] 17 mmol/L Low 20 - 31 mmol/L [facility] Creatinine [Mass/Vol] 1.55 mg/dL High 0.70 - 1.20 mg/dL [facility] GFR/1.73 sq M.predicted MDRD (S/P/Bld) [Vol rate/Area] 51 mL/min/{1.73_m2} Low - PINF [facility] Comment on above: These results [...] 119 mg/dL High 70 - 99 mg/dL [facility] Interpretation and review of laboratory results Abnormal [facility] Potassium [Moles/Vol] 5.4 mmol/L High 3.7 - 5.3 mmol/L [facility] Protein [Mass/Vol] 7.1 g/dL 6.4 - 8.3 g/dL [facility] Sodium [Moles/Vol] 140 mmol/L 135 - 144 mmol/L [facility] Urea nitrogen [Mass/Vol] 38 mg/dL High 8 - 23 mg/dL [facility] Urea nitrogen/Creatinine (Bld) [Mass ratio] 25 High 9 - 20 [facility] [employer] EKG 12 LeadOrdered By: Michelle Tellez hmad on 06-23-2022 Atrial Rate 60 BPM [facility] Work Phone: P [place] 55 degrees [facility] Work Phone: P-R Interval 182 ms [facility] Work Phone: Q-T Interval 388 ms [facility] Work Phone: QRS Duration 88 ms [facility] Work Phone: QTc Calculation (Bazett) 388 ms [facility] Work Phone: R [place] 15 degrees [facility] Work Phone: T [place] 40 degrees [facility] Work Phone: Ventricular Rate 60 BPM [employer] Work Phone: [facility] Work Phone: EKG 12 Leadon 06-23-2022 Poor [...] Noe MD ([id number]) on 06/23/2022 3:18:16 PM [facility] RADIOLOGY Michelle Noe MD - 06/23/2022 Poor data quality, interpretation may be adversely affected Normal sinus rhythm Normal ECG When compared with ECG of 22-JUN-2022 13:14, (unconfirmed) Borderline criteria for Anterolateral infarct are no longer Present Criteria for Inferior infarct are no longer Present T wave inversion no longer evident in Inferior leads Confirmed by Michelle Noe MD ([id number]) on 06/23/2022 3:18:16 PM [facility] Work Phone: EKG Rhythm Stripon 3 [facility] Glucose, Whole Bloodon 06-23 Glucose [Mass/Vol] 230 mg/dL High 74 - 100 mg/dL [facility] Interpretation and review of laboratory results Abnormal [facility] Urinalysison 06-23-2022 Bilirubin Urine Negative NEGATIVE [facility] Color, UA Yellow Yellow [facility] Glucose Auto test strip (U) [Mass/Vol] Negative NEGATIVE [facility] Ketones (U) [Mass/Vol] Negative NEGATIVE [facility] Leukocyte esterase Auto test strip Ql (U) Negative NEGATIVE [facility] Nitrite Auto test strip Ql (U) Negative NEGATIVE [facility] Protein (U) [Mass/Vol] 6.0 mg/dL 5.0 - 9.0 [facility] Protein (U) [Mass/Vol] Negative NEGATIVE [facility] Specific [place], UA 1.020 1.010 - 1.020 [facility] Turbidity UA Clear Clear [facility] Urine Hgb Negative NEGATIVE [facility] Urobilinogen, Urine Normal Normal [facility] Urinalysis, Routineon 2022 Bilirubin, SemiQt,Ur Negative Normal NEG [facility] Comment on above: Performed By: #### U A #### [facility] [address] [place] [address] [employer] Software Verification Engineer: Khadar Tang MD Blood, Urine Negative Normal NEG [facility] Comment on above: Performed By: #### U A #### [facility] [address] [place], [place] [address] [employer] Software Verification Engineer: Khadar Tang MD Clarity (U) Clear Normal CLEAR [facility] Comment on above: Performed By: #### U A #### [facility] [address] [place] [address] [place] [address] [employer] Software Verification Engineer: Khadar Tang MD Color (U) Yellow Normal YEL [facility] Comment on above: Performed By: #### U A #### [facility] [address] [place] [address] [place] [address] [employer]ware Software Verification Engineer: Khadar Tang MD Glucose Ql (U) Negative Normal NEG [facility] Comment on above: Performed By: #### U A #### [facility] [address] [place] [address] Dr. [place], [facility] [employer] Software Verification Engineer: Khadar Tang MD Ketones Ql (U) Negative Normal NEG [facility] Comment on above: Performed By: #### U A #### [address] [place], [facility] [employer] Software Verification Engineer: Khadar Tang MD Leukocyte esterase Test strip Ql (U) Negative Normal NEG [facility] Comment on above: Performed By: #### U A #### [facility] [address] [place] [address] Dr. [place], [facility] [employer] Verification Engineer: Khadar Tang MD Nitrite,Ur Negative Normal NEG [facility] Comment on above: Performed By: #### U A #### [facility] [address] [place] [address] [place] [address] [employer] Software Verification Engineer: Khadar Tang MD PH,Ur 6.0 Normal 5.0-9.0 [facility] Comment on above: Performed By: #### U A #### [facility] [address] [place] [address] Dr. [place], [place] [id number] [employer] Software Verification Engineer: Khadar Tang MD Protein Ql (U) Negative Normal NEG [facility] Comment on above: Performed By: #### U A #### [facility] [address] [place] [place] [address] [employer] Software Verification Engineer: Khadar Tang MD Spec. [place],Ur 1.020 Normal 1.010-1.02 0 [facility] Comment on above: Performed By: #### U A #### [facility] [address] [place] [id number] [employer] Verification Engineer: Khadar Tang MD Urobilinogen,Ur Normal Normal NORM [facility] Comment on above: Performed By: #### U A #### [facility] [address] [place] [address] [employer] Software Verification Engineer: Khadar Tang MD XR ANKLE RIGHT (MIN [...] Normal [facility] 1. Nonspecific diffu se subcutaneous edema. 2. Periostitis at the lateral aspect of the fibula distally. There was osteomyelitis in this region previously. This could reflect chronic osteomyelitis. Elsewhere, there is no subcutaneous air or evidence of osteomyelitis. [facility]IS CONSOLIDATED EXAMINATION: THREE XRAY VIEWS OF [...] lesion is noted. Calcaneal spurring appears unchanged. [facility] CONSOLID[facility] Derrick Squires MD - 06/23/2022 [...] no subcutaneous air or evidence of osteomyelitis. [employer] Phone: Radiology Study observation (narrative) [employer] Phone: XR ANKLE RIGHT (MIN 3 VIEWS) Ordered By: Derrick Squires on 06-23-2022 [employer] Phone: Basic Metabolic Panelon 05-28 Anion gap [Moles/Vol] 9 mmol/L 9 - 17 mmol/L [facility] Calcium [Mass/Vol] 9.5 mg/dL 8.6 - 10. 4 mg/dL [facility] Chloride [Moles/Vol] 112 mmol/L High 98 - 10 7 mmol/L [facility] CO2 [Moles/Vol] 17 mmol/L Low 20 - 31 mmol/L [facility] Creatinine [Mass/Vol] 2 mg/dL High 0.70 - 1.20 mg/dL [facility] GFR/1.73 sq M.predicted MDRD (S/P/Bld) [Vol rate/Area] 38 mL/min/{1.73_m2} Low - PINF [facility] Comment on above: These results [...] 137 mg/dL High 70 - 99 mg/dL [facility] Interpretation and review of laboratory results Abnormal [facility] Potassium [Moles/Vol] 6.1 mmol/L Critically high 3.7 - 5.3 mmol/L [facility] Sodium [Moles/Vol] 138 mmol/L 135 - 144 mmol/L [facility] Urea nitrogen [Mass/Vol] 45 mg/dL High 8 - 23 mg/dL [facility] Urea nitrogen/Creatinine (Bld) [Mass ratio] 23 High 9 - 20 [facility] Basic Metabolic Profon 06-22 Potassium [Moles/Vol] 6.1 mmol/L Critically high 3.7-5.3 [facility] Comment on above: Performed By: #### T CINDYI #### [facility] [address] [place], [place] [address] [employer]ware Software Verification Engineer: Khadar Tang MD Anion gap [Moles/Vol] 9 mmol/L Normal 9-17 [facility] Comment on above: Performed By: #### T CINDYI #### [facility] [address] [place], [place] [address] [employer]ware Software Verification Engineer: Khadar Tang MD BUN/CRE Ratio 23 High 9-20 [facility] Comment on above: Performed By: #### T ROPI #### [facility] [address] [place], [place] [id number] [employer] Software Verification Engineer: Khadar Tang MD Calcium [Mass/Vol] 9.5 mg/dL Normal 8.6-10.4 [facility] Comment on above: Performed By: #### T ROPI #### [facility] [address] [place], [place] [id number] [employer] Verification Engineer: Khadar Tang MD Chloride [Moles/Vol] 112 mmol/L High 98-107 [facility] Comment on above: Performed By: #### T ROPI #### [facility] [address] [place], [place] [id number] [employer] Software Verification Engineer: Khadar Tang MD CO2 [Moles/Vol] 17 mmol/L Low 20-31 [facility] Comment on above: Performed By: #### T ROPI #### [facility] [address] [place], [place] [address]83 [employer] Software Verification Engineer: Khadar Tang MD Creatinine [Mass/Vol] 2.00 mg/dL High 0.70-1.20 [facility] Comment on above: Performed By: #### T ROPI #### [facility] [address] [place], [place] [id number] [employer] Software Verification Engineer: Khadar Tang MD GFR/1.73 sq M.predicted among non-blacks MDRD (S/P/Bld) [Vol rate/Area] 38 mL/min/{1.73_m2} Low >60 [facility] Comment on above: Result Comment: These results [...] secretion. Performed By: #### T ROPI #### [facility] [address] [place], [place] [id number] [employer] Software Verification Engineer: Khadar Tang MD Glucose [Mass/Vol] 137 mg/dL High 70-99 [facility] Comment on above: Performed By: #### T ROPI #### [facility] [address] [place], [place] [address] [employer] Software Verification Engineer: Khadar Tagn MD Sodium [Moles/Vol] 138 mmol/L Normal 135-144 [facility] Comment on above: Performed By: #### T ROPI #### [facility] [address] [place], [place] [id number] [employer] Software Verification Engineer: Khadar Tang MD Urea nitrogen [Mass/Vol] 45 mg/dL High 8-23 [facility] Comment on above: Performed By: #### T ROPI #### [facility] [address] [place], [place] [address] [employer]ware Software Verification Engineer: Khadar Tang MD CBC with Auto Differentialon 06-22-2022 Absolute Eos # 0.86 High [facility] [facility] Absolute Immature Granulocyte 0.09 [facility] Absolute Lymph # 1.97 [facility] Absolute [place] # 0.88 [facility] Basophils (Bld) [#/Vol] 0.05 10*3/uL [facility] Basophils/100 WBC (Bld) 0 % 0 - 2 % [facility] Eosinophils/100 WBC (Bld) 7 % High 1 - 4 % [facility] Hematocrit (Bld) [Volume fraction] 27.6 % Low 40.7 - 50.3 % [facility] Hemoglobin (Bld) [Mass/Vol] 8.3 g/dL Low 13.0 - 17.0 g/dL [facility] Immature granulocytes/100 WBC (Bld) 1 % High 0 [facility] Interpretation and review of laboratory results Abnormal [facility] Lymphocytes/100 WBC (Bld) 15 % Low 24 - 43 % [facility] MCH (RBC) [Entitic mass] 23.3 pg Low 25.2 - 33.5 pg [facility] MCHC (RBC) [Mass/Vol] 30.1 g/dL 28.4 - 34.8 g/dL [facility] MCV (RBC) [Entitic vol] 77.5 fL Low 82.6 - 102.9 fL [facility] Monocytes/100 WBC (Bld) 7 % 3 - 12 % [facility] NRBC Automated 0.0 0.0 per 100 WBC [facility] Platelet distribution width (Bld) [Ratio] 16.2 % High 11.8 - 14.4 % [facility] Platelet mean volume (Bld) [Entitic vol] 8.6 fL 8.1 - 13.5 fL [facility] Platelets (Bld) [#/Vol] 338 10*3/uL [facility] RBC (Bld) [#/Vol] 3.56 10*6/uL Low 4.21 - 5.77 m/uL [facility] Segmented neutrophils/100 WBC (Bld) 70 % High 36 - 65 % [facility] Segs Absolute 8.91 High [facility] WBC (Bld) [#/Vol] 12.8 10*3/uL High [facility] Absolute Eos # 0.84 High [facility] Absolute Immature Granulocyte 0.06 [facility] Absolute Lymph # 1.69 [facility] Absolute Lanier # 0.82 [facility] Basophils (Bld) [#/Vol] 0.04 10*3/uL [facility] Basophils/100 WBC (Bld) 0 % 0 - 2 % [facility] Eosinophils/100 WBC (Bld) 7 % High 1 - 4 % [facility] Hematocrit (Bld) [Volume fraction] 27.1 % Low 40.7 - 50.3 % [facility] Hemoglobin (Bld) [Mass/Vol] 8.7 g/dL Low 13.0 - 17.0 g/dL [facility] Immature granulocytes/100 WBC (Bld) 1 % High 0 [facility] Interpretation and review of laboratory results Abnormal [facility] Lymphocytes/100 WBC (Bld) 14 % Low 24 - 43 % [facility] MCH (RBC) [Entitic mass] 25.3 pg 25.2 - 33.5 pg [facility] MCHC (RBC) [Mass/Vol] 32.1 g/dL 28.4 - 34.8 g/dL [facility] MCV (RBC) [Entitic vol] 78.8 fL Low 82.6 - 102.9 fL [facility] Monocytes/100 WBC (Bld) 7 % 3 - 12 % [facility] NRBC Automated 0.0 0.0 per 100 WBC [facility] Platelet distribution width (Bld) [Ratio] 16.4 % High 11.8 - 14.4 % [facility] Platelet mean volume (Bld) [Entitic vol] 9.4 fL 8.1 - 13.5 fL [facility] Platelets (Bld) [#/Vol] 345 10*3/uL [facility] RBC (Bld) [#/Vol] 3.44 10*6/uL Low 4.21 - 5.77 m/uL [facility] Segmented neutrophils/100 WBC (Bld) 71 % High 36 - 65 % [facility] Segs Absolute 9.06 High [facility] WBC (Bld) [#/Vol] 12.5 10*3/uL High [facility] CBC with Diffon 06-22-2022 Abs. Basophil 0.05 k/uL Normal 0.00-0.20 [facility] Comment on above: Performed By: #### C DP, MG, CP #### [facility] [address] [place] [address] [employer] Software Verification Engineer: Khadar Tang MD Abs.Imm.Granulocyte 0.09 k/uL Normal 0.00-0.30 [facility] Comment on above: Performed By: #### C DP, MG, CP #### [facility] [address] [place] [address] [employer] Software Verification Engineer: Khadar Tang MD Abs.Neutrophil (Seg) 8.91 k/uL High 1.50-8.10 [facility] Comment on above: Performed By: #### C DP, MG, CP #### [address] [place], [place] [address] [employer] Software Verification Engineer: Khadar Tang MD Basophils/100 WBC (Bld) 0 % Normal 0-2 [facility] Comment on above: Performed By: #### C DP, MG, CP #### [address] [place] [address] [employer] Software Verification Engineer: Khadar Tang MD Eosinophils (Bld) [#/Vol] 0.86 10*3/uL High 0.00-0.44 [facility] Comment on above: Performed By: #### C DP, MG, CP #### [address] [place], [place] [address] [employer] Software Verification Engineer: Khadar Tang MD Eosinophils/100 WBC (Bld) 7 % High 1-4 [facility] Comment on above: Performed By: #### C DP, MG, CP #### [address] [place], [place] [address] [employer] Software Verification Engineer: Khadar Tang MD Erythrocyte distribution width (RBC) [Ratio] 16.2 % High 11.8-14.4 [facility] Comment on above: Performed By: #### C DP, MG, CP #### [address] [place], [place] [address] [employer] Software Verification Engineer: Khadar Tang MD Hematocrit (Bld) [Volume fraction] 27.6 % Low 40.7-50.3 [facility] Comment on above: Performed By: #### C DP, MG, CP #### [address] [place], [facility] [employer] Verification Engineer: Khadar Tang MD Hemoglobin (Bld) [Mass/Vol] 8.3 g/dL Low 13.0-17.0 [facility] Comment on above: Performed By: #### C DP MG, CP #### [address] [place], [place] [id number] [employer] Software Verification Engineer: Khadar Tang MD Immature granulocytes/100 WBC (Bld) 1 % High 0 [facility] Comment on above: Performed By: #### C DP, MG, CP #### [address] [place], [facility] [employer] Software Verification Engineer: Khadar Tang MD Lymphocytes (Bld) [#/Vol] 1.97 10*3/uL Normal 1.10-3.70 [facility] Comment on above: Performed By: #### C DP MG, CP #### [address] [place], [place] [address] [employer] Verification Engineer: Khadar Tang MD Lymphocytes/100 WBC (Bld) 15 % Low 24-43 [facility] Comment on above: Performed By: #### C ZANDER MG, CP #### [address] [place], [facility] [employer] Verification Engineer: Khadar Tang MD MCH (RBC) [Entitic mass] 23.3 pg Low 25.2-33.5 [facility] Comment on above: Performed By: #### C DP MG, CP #### [address] [place], [facility] [employer] Software Verification Engineer: Khadar Tang MD MCHC (RBC) [Mass/Vol] 30.1 g/dL Normal 28.4-34.8 [facility] Comment on above: Performed By: #### C DP, MG, CP #### [address] [place] [address] [employer] Software Verification Engineer: Khadar Tang MD MCV (RBC) [Entitic vol] 77.5 fL Low 82.6-102.9 [facility] Comment on above: Performed By: #### C DP, MG, CP #### [facility] [address] [place], [place] [address] [employer] Software Verification Engineer: Khadar Tang MD Monocytes (Bld) [#/Vol] 0.88 10*3/uL Normal 0.10-1.20 [facility] Comment on above: Performed By: #### C DP, MG, CP #### [facility] [address] [place] [address] Dr. [place], [facility] [employer] Verification Engineer: Khadar Tang MD Monocytes/100 WBC (Bld) 7 % Normal 3-12 [facility] Comment on above: Performed By: #### C DP, MG, CP #### [address] [place], [place] [address] [employer] Verification Engineer: Khadar Tang MD Neutrophil (Seg) 70 % High 36-65 [facility] Comment on above: Performed By: #### C DP, MG, CP #### [address] [place], [place] [address] [employer] Verification Engineer: Khadar Tang MD NRBC Automated 0.0 per 100 WBC Normal 0.0 [facility] Comment on above: Performed By: #### C DP, MG, CP #### [address] [place], [place] [address] [employer] Verification Engineer: Khadar Tang MD Platelet mean volume (Bld) [Entitic vol] 8.6 fL Normal 8.1-13.5 [facility] Comment on above: Performed By: #### C DP, MG, CP #### [address] [place], [facility] [employer] Verification Engineer: Khadar Tang MD Platelets (Bld) [#/Vol] 338 10*3/uL Normal 138-453 [facility] Comment on above: Performed By: #### C DP, MG, CP #### [facility] [address] [place] [address] Dr. [place], [place] [address] [employer] Verification Engineer: Khadar Tang MD RBC (Bld) [#/Vol] 3.56 10*6/uL Low 4.21-5.77 [facility] Comment on above: Performed By: #### C ZANDER MG, CP #### [address] [place], [place] [address] [employer] Verification Engineer: Khadar Tang MD WBC (Bld) [#/Vol] 12.8 10*3/uL High 3.5-11.3 [facility] Comment on above: Performed By: #### C MG ZANDER, CP #### [address] [place] [address] [employer] Software Verification Engineer: Khadar Tang MD Abs. Basophil 0.04 k/uL Normal 0.00-0.20 [facility] Comment on above: Performed By: #### T ROPI #### [address] [place], [place] [address] [employer] Software Verification Engineer: Khadar Tang MD Abs.Imm.Granulocyte 0.06 k/uL Normal 0.00-0.30 [facility] Comment on above: Performed By: #### T ROPI #### [address] [place], [place] [address] [employer] Software Verification Engineer: Khadar Tang MD Abs.Neutrophil (Seg) 9.06 k/uL High 1.50-8.10 [facility] Comment on above: Performed By: #### T ROPI #### [address] [place] [address] [employer] Software Verification Engineer: Khadar Tang MD Basophils/100 WBC (Bld) 0 % Normal 0-2 [facility] Comment on above: Performed By: #### T ROPI #### [address] [place] [address] [employer] Software Verification Engineer: Khadar Tang MD Eosinophils (Bld) [#/Vol] 0.84 10*3/uL High 0.00-0.44 [facility] Comment on above: Performed By: #### T ROPI #### [facility] [address] [place] [address] Dr. [place], [place] [id number] [employer] Verification Engineer: Khadar Tang MD Eosinophils/100 WBC (Bld) 7 % High 1-4 [facility] Comment on above: Performed By: #### T ROPI #### [address] [place] [id number] [employer]ware Software Verification Engineer: Khadar Tang MD Erythrocyte distribution width (RBC) [Ratio] 16.4 % High 11.8-14.4 [facility] Comment on above: Performed By: #### T ROPI #### [address] [place], [facility]83 [employer]ware Software Verification Engineer: Khadar Tang MD Hematocrit (Bld) [Volume fraction] 27.1 % Low 40.7-50.3 [facility] Comment on above: Performed By: #### T ROPI #### [address] [place], [facility] Firmware Software Verification Engineer: Khadar Tang MD Hemoglobin (Bld) [Mass/Vol] 8.7 g/dL Low 13.0-17.0 [facility] Comment on above: Performed By: #### T ROPI #### [facility] [address] [place] [address] [address] [place], [place] [id number] [employer]ware Software Verification Engineer: Khadar Tang MD Immature granulocytes/100 WBC (Bld) 1 % High 0 [facility] Comment on above: Performed By: #### T ROPI #### [address] [place], [place] [id number] [employer]ware Software Verification Engineer: Khadar Tang MD Lymphocytes (Bld) [#/Vol] 1.69 10*3/uL Normal 1.10-3.70 [facility] Comment on above: Performed By: #### T ROPI #### [facility] [address] [place], [place] [address] Firmware Software Verification Engineer: Khadar Tang MD Lymphocytes/100 WBC (Bld) 14 % Low 24-43 [facility] Comment on above: Performed By: #### T ROPI #### [facility] [address] [place], [place] [address] Firmware Software Verification Engineer: Khadar Tang MD MCH (RBC) [Entitic mass] 25.3 pg Normal 25.2-33.5 [facility] Comment on above: Performed By: #### T ROPI #### [address] [place] [id number] [employer]ware Software Verification Engineer: Khadar Tang MD MCHC (RBC) [Mass/Vol] 32.1 g/dL Normal 28.4-34.8 [facility] Comment on above: Performed By: #### T ROPI #### [address] [place], [place] [address] Firmware Software Verification Engineer: Khadar Tang MD MCV (RBC) [Entitic vol] 78.8 fL Low 82.6-102.9 [facility] Comment on above: Performed By: #### T ROPI #### [address] [place], [place] [address] [employer]ware Software Verification Engineer: Khadar Tang MD Monocytes (Bld) [#/Vol] 0.82 10*3/uL Normal 0.10-1.20 [facility] Comment on above: Performed By: #### T ROPI #### [address] [place], [facility]83 Firmware Software Verification Engineer: Khadar Tang MD Monocytes/100 WBC (Bld) 7 % Normal 3-12 [facility] Comment on above: Performed By: #### T ROPI #### [facility] [address] [place], [place] [id number] Firmware Software Verification Engineer: Khadar Tnag MD Neutrophil (Seg) 71 % High 36-65 [facility] Comment on above: Performed By: #### T ROPI #### [facility] [address] [place], [place] 6983883 [employer]ware Software Verification Engineer: Khadar Tang MD NRBC Automated 0.0 per 100 WBC Normal 0.0 [facility] Comment on above: Performed By: #### T ROPI #### [facility] [address] [place], [place] 1556983 Firmware Software Verification Engineer: Khadar Tang MD Platelet mean volume (Bld) [Entitic vol] 9.4 fL Normal 8.1-13.5 [facility] Comment on above: Performed By: #### T ROPI #### [facility] [address] [place], [place] 1293583 [employer]ware Software Verification Engineer: Khadar Tang MD Platelets (Bld) [#/Vol] 345 10*3/uL Normal 138-453 [facility] Comment on above: Performed By: #### T ROPI #### [address] [place], [place] [id number] Firmware Software Verification Engineer: Khadar Tang MD RBC (Bld) [#/Vol] 3.44 10*6/uL Low 4.21-5.77 [facility] Comment on above: Performed By: #### T ROPI #### [facility] [address] [place], [place] [phone] [employer]ware Software Verification Engineer: Khadar Tang MD WBC (Bld) [#/Vol] 12.5 10*3/uL High 3.5-11.3 [facility] Comment on above: Performed By: #### T ROPI #### [facility] [address] [place], [place] [id number] Firmware Software Verification Engineer: Khadar Tang MD [facility] 06-22-2022 Albumin [Mass/Vol] 3.2 g/dL Low 3.5 - 5.2 g/dL [facility] Albumin/Globulin [Mass ratio] 0.7 {ratio} Low 1.0 - 2.5 [facility] ALP [Catalytic activity/Vol] 101 U/L 40 - 129 U/L [facility] ALT [Catalytic activity/Vol] 8 U/L 5 - 41 U/L [facility] Anion gap [Moles/Vol] 11 mmol/L 9 - 17 mmol/L [facility] AST [Catalytic activity/Vol] 13 U/L NINF - 40 U/L [facility] Bilirubin [Mass/Vol] mg/dL Low 0.3 - 1 .2 mg/dL [facility] Calcium [Mass/Vol] 9.1 mg/dL 8.6 - 10. 4 mg/dL [facility] Chloride [Moles/Vol] 110 mmol/L High 98 - 10 7 mmol/L [facility] CO2 [Moles/Vol] 16 mmol/L Low 20 - 31 mmol/L [facility] Creatinine [Mass/Vol] 1.93 mg/dL High 0.70 - 1.20 mg/dL [facility] GFR/1.73 sq M.predicted MDRD (S/P/Bld) [Vol rate/Area] 39 mL/min/{1.73_m2} Low - PINF [facility] Comment on above: These results [...] 148 mg/dL High 70 - 99 mg/dL [facility] Interpretation and review of laboratory results Abnormal [facility] Potassium [Moles/Vol] 6.3 mmol/L Critically high 3.7 - 5.3 mmol/L [facility] Protein [Mass/Vol] 8.1 g/dL 6.4 - 8.3 g/dL [facility] Sodium [Moles/Vol] 137 mmol/L 135 - 144 mmol/L [facility] Urea nitrogen [Mass/Vol] 49 mg/dL High 8 - 23 mg/dL [facility] Urea nitrogen/Creatinine (Bld) [Mass ratio] 25 High 9 - 20 [facility] Comp Metabolic Profon 2022 Bilirubin [Mass/Vol] mg/dL Low 0.3-1.2 [facility] Comment on above: Performed By: #### C DP, MG, CP #### [facility] [address] [place] [address] Firmware Software Verification Engineer: Khadar Tang MD Potassium [Moles/Vol] 6.3 mmol/L Critically high 3.7-5.3 [facility] Comment on above: Performed By: #### C DP, MG, CP #### [facility] [address] [place] [address] Firmware Software Verification Engineer: Khadar Tang MD Albumin [Mass/Vol] 3.2 g/dL Low 3.5-5.2 [facility] Comment on above: Performed By: #### C DP, MG, CP #### [facility] [address] [place], [place] [id number] Firmware Software Verification Engineer: Khadar Tang MD Albumin/Glob Ratio 0.7 Low 1.0-2.5 [facility] Comment on above: Performed By: #### C DP, MG, CP #### [facility] [address] [place] [address] Firmware Software Verification Engineer: Khadar Tang MD Alkaline Phos 101 U/L Normal 40-129 [facility] Comment on above: Performed By: #### C DP, MG, CP #### [facility] [address] [place] [address] Firmware Software Verification Engineer: Khadar Tang MD ALT [Catalytic activity/Vol] 8 U/L Normal 5-41 [facility] Comment on above: Performed By: #### C DP, MG, CP #### [facility] [address] [place], [place] 7849383 Firmware Software Verification Engineer: Khadar Tang MD Anion gap [Moles/Vol] 11 mmol/L Normal 9-17 [facility] Comment on above: Performed By: #### C DP, MG, CP #### [facility] [address] [place], [place] [id number] Firmware Software Verification Engineer: Khadar Tang MD AST [Catalytic activity/Vol] 13 U/L Normal <40 [facility] Comment on above: Performed By: #### C DP, MG, CP #### [facility] [address] [place], [place] 4189183 Firmware Software Verification Engineer: Khadar Tang MD BUN/CRE Ratio 25 High 9-20 [facility] Comment on above: Performed By: #### C DP, MG, CP #### [facility] [address] [place], [place] 0649283 Firmware Software Verification Engineer: Khadar Tang MD Calcium [Mass/Vol] 9.1 mg/dL Normal 8.6-10.4 [facility] Comment on above: Performed By: #### C DP, MG, CP #### [facility] [address] [place], [place] 4760883 Firmware Software Verification Engineer: Khadar Tang MD Chloride [Moles/Vol] 110 mmol/L High 98-107 [facility] Comment on above: Performed By: #### C DP, MG, CP #### [facility] [address] [place], [place] 3120983 Firmware Software Verification Engineer: Khadar Tang MD CO2 [Moles/Vol] 16 mmol/L Low 20-31 [facility] Comment on above: Performed By: #### C DP, MG, CP #### [facility] [address] [place] [address] Firmware Software Verification Engineer: Khadar Tang MD Creatinine [Mass/Vol] 1.93 mg/dL High 0.70-1.20 [facility] Comment on above: Performed By: #### C DP, MG, CP #### [facility] [address] [place] [address] Firmware Software Verification Engineer: Khadar Tang MD GFR/1.73 sq M.predicted among non-blacks MDRD (S/P/Bld) [Vol rate/Area] 39 mL/min/{1.73_m2} Low >60 [facility] Comment on above: Result Comment: These results [...] By: #### C DP, MG, CP #### [address] [place] [address] Firmware Software Verification Engineer: Khadar Tang MD Glucose [Mass/Vol] 148 mg/dL High 70-99 [facility] Comment on above: Performed By: #### C DP, MG, CP #### [address] [place] [address] Firmware Software Verification Engineer: Khadar Tang MD Protein [Mass/Vol] 8.1 g/dL Normal 6.4-8.3 [facility] Comment on above: Performed By: #### C DP, MG, CP #### [address] [place] [address] Firmware Software Verification Engineer: Khadar Tang MD Sodium [Moles/Vol] 137 mmol/L Normal 135-144 [facility] Comment on above: Performed By: #### C DP, MG, CP #### [facility] [address] [place], [place] [address] [employer]ware Software Verification Engineer: Khadar Tang MD Urea nitrogen [Mass/Vol] 49 mg/dL High 11-18 [facility] Comment on above: Performed By: #### C DP, MG, CP #### [facility] [address] [place], [place] [address] [employer]ware Software Verification Engineer: Khadar Tang MD EKG 12 LeadOrdered By: Michelle Tellez hmad on 06-22-2022 Atrial Rate 58 BPM [employer] Phone: P [place] 66 degrees [employer] Phone: P-R Interval 148 ms [employer] Phone: Q-T Interval 394 ms [employer] Phone: QRS Duration 94 ms [employer] Work Phone: QTc Calculation (Bazett) 386 ms [employer] Phone: R [place] 64 degrees [employer] Phone: T [place] -8 degrees [employer] Phone: Ventricular Rate 58 BPM [employer] Phone: [employer] Phone: EKG 12 Leadon 06-22-2022 Sinus bradycardia Inferior infarct , age undetermined Possible Anterolateral infarct , age undetermined Abnormal ECG When compared with ECG of 24-APR-2015 18:25, Vent. rate has decreased BY 39 BPM Borderline criteria for Anterolateral infarct are now Present T wave inversion now evident in Inferior leads QT has shortened Confirmed by Michelle Noe MD ([id number]) on 06/22/2022 10:09:31 PM [facility] RADI[facility] Michelle Noe MD - 06/22/2022 Sinus bradycardia Inferior infarct , age undetermined Possible Anterolateral infarct , age undetermined Abnormal ECG When compared with ECG of 24-APR-2015 18:25, Vent. rate has decreased BY 39 BPM Borderline criteria for Anterolateral infarct are now Present T wave inversion now evident in Inferior leads QT has shortened Confirmed by Michelle Noe MD ([id number]) on 06/22/2022 10:09:31 PM [facility] Work Phone: Magnesiumon 06-22-2022 Magnesium [Mass/Vol] 2.0 mg/dL Normal 1.6-2.6 [facility] Comment on above: Performed By: #### C DP, MG, CP #### [facility] [address] [place] [address] Firmware Software Verification Engineer: Khadar Tang MD Magnesium [Mass/Vol] 2.0 mg/dL 1.6 - 2 .6 mg/dL [facility] CT PELVIS WO CONon 2 [...] by: JESUSITA PAPPAS Date: 2022-03-14 09:50 Normal [facility] GLYCOHEMOGLOBIN A1Con 2021 ADA RECOMMENDATION ADA THERAPEUTIC TARG ET 6.0 - 7.0 ACTION SUGGESTED > 7.0 Normal [facility] Comment on above: Performed By: #### A 1C #### [facility] [address] [address] [address] Juan Smith Glucose [Mass/Vol] 180 mg/dL Normal [facility] Comment on above: Performed By: #### A 1C #### [facility] [address] [address] [address] Juan Smith HbA1c (Bld) [Mass fraction] 7.9 % Critically high <=6.0 [facility] Comment on above: Performed By: #### A 1C #### [facility] [address] [address] [address] Juan Smith Cult,Aerobe/Anaerobeon 04-15 Neutrophils Specimen Description .TISSUE RIGHT MEDIAL HEEL POST IRRIGATIONSpecial Requests NOT REPORTEDDirect Exam NO NEUTROPHILS SEEN NO BACTERIA SEEN Culture METHICILLIN RESISTANT STAPHYLOCOCCUS AUREUS SCANT GROWTH For susceptibility, refer to previous culture. STREPTOCOCCI, BETA HEMOLYTIC GROUP C SCANT GROWTH DIPHTHEROIDS SCANT GROWTH NO ANAEROBIC ORGANISMS ISOLATED AT 5 DAYS Report Status FINAL 04/15/2017 Normal [facility] Comment on above: Performed By: #### A ANC ####[facility] [address] [address] Neutrophils Specimen Description .TISSUE RIGHT ANKLE PRE IRRIGATIONSpecial Requests NOT REPORTEDDirect Exam NO NEUTROPHILS SEEN RARE GRAM POSITIVE COCCI IN PAIRS Culture METHICILLIN RESISTANT STAPHYLOCOCCUS AUREUS LIGHT GROWTH For susceptibility, refer to previous culture. STREPTOCOCCI, BETA HEMOLYTIC GROUP C SCANT GROWTH NO ANAEROBIC ORGANISMS ISOLATED AT 5 DAYS Report Status FINAL 04/15/2017 [facility] Comment on above: Performed By: #### A ANC ####[address] [address] Neutrophils Specimen Description .TISSUE RIGHT MEDIAL HEEL PRE IRRIGATIONSpecial Requests NOT REPORTEDDirect Exam NO NEUTROPHILS SEEN NO BACTERIA SEEN Culture STREPTOCOCCI, BETA HEMOLYTIC GROUP C LIGHT GROWTH METHICILLIN RESISTANT STAPHYLOCOCCUS AUREUS SCANT GROWTH For susceptibility, refer to previous culture. DIPHTHEROIDS LIGHT GROWTH NO ANAEROBIC ORGANISMS ISOLATED AT 5 DAYS Report Status FINAL 04/15/2017 Normal [facility] Comment on above: Performed By: #### A ANC ####[address] [address] Basic Metabolic Profon 04-13 (cont.) Normal [facility] Comment on above: Result Comment: Aver age GFR for 50-59 years old: 93 mL/min/1.73sq mChronic Kidney Disease: <60 mL/min/1.73sq mKidney failure: <15 mL/min/1.73sq meGFR calculated using average adult body mass. Additional eGFR calculator available at:http://www.Playhem.Hitpost/multiple_crcl_2012.htmS[facility] [address] [place] [address] Performed By: #### C DP, CMPX, CRP, SED, GLYHGB ####[address] [address] Anion gap 11 mmol/L Normal - [facility] Comment on above: Performed By: #### C DP, CMPX, CRP, SED, GLYHGB ####[address] [address] Calcium 8.7 mg/dL Normal 8.6-10.4 [facility] Comment on above: Performed By: #### C DP, CMPX, CRP, SED, GLYHGB ####[address] [address] Chloride 106 mmol/L Normal 98-107 [facility] Comment on above: Performed By: #### C DP, CMPX, CRP, SED, GLYHGB ####[address] [address] CO2 22 mmol/L Normal 20-31 [facility] Comment on above: Performed By: #### C DP, CMPX, CRP, SED, GLYHGB ####[address] [address] Creatinine 1.04 mg/dL Normal 0.70-1.20 [facility] Comment on above: Performed By: #### C DP, CMPX, CRP, SED, GLYHGB ####[address] [address] eGFR (non-black) mL/min/{1.73_m2} Normal >60 [facility] Comment on above: Performed By: #### C DP, CMPX, CRP, SED, GLYHGB ####[address] [address] Glucose mass conc 174 mg/dL High 70-99 [facility] Comment on above: Performed By: #### C DP, CMPX, CRP, SED, GLYHGB ####[address] [address] Potassium molar conc 4.1 mmol/L Normal 3.7-5.3 [facility] Comment on above: Performed By: #### C DP, CMPX, CRP, SED, GLYHGB ####[address] [address] Sodium 139 mmol/L Normal 135-144 [facility] Comment on above: Performed By: #### C DP, CMPX, CRP, SED, GLYHGB ####[address] [address] Urea nitrogen 16 mg/dL Normal 6-20 [facility] Comment on above: Performed By: #### C DP, CMPX, CRP, SED, GLYHGB ####[address] [address] BUN/CRE Ratio NOT REPORTED Normal -20 [facility] Comment on above: Performed By: #### C DP, CMPX, CRP, SED, GLYHGB ####[address] [address] Staging: NOT REPORTED Normal [facility] Comment on above: Performed By: #### C DP, CMPX, CRP, SED, GLYHGB ####[address] [address] CBC with Diffon 04-13-2017 Abs. Basophil <0.03 Normal 0.00-0.20 [facility] Comment on above: Performed By: #### C DP, CMPX, CRP, SED, GLYHGB ####[address] [address] Abs.Neutrophil (Seg) 4.97 k/uL Normal 1.50-8.10 [facility] Comment on above: Performed By: #### C DP, CMPX, CRP, SED, GLYHGB ####[address] [address] Basophils/100 WBC Auto (Bld) 0 % Normal 0-2 [facility] Comment on above: Performed By: #### C DP, CMPX, CRP, SED, GLYHGB ####[address] [address] Eosinophils 0.24 10*3/uL Normal 0.00-0.44 [facility] Comment on above: Performed By: #### C DP, CMPX, CRP, SED, GLYHGB ####[address] [address] Eosinophils/100 leukocytes 3 % Normal 1-4 [facility] Comment on above: Performed By: #### C DP, CMPX, CRP, SED, GLYHGB ####[address] [address] Erythrocyte distribution width Auto Ratio (RBC) 14.8 % High 11.8-14.4 [facility] Comment on above: Performed By: #### C DP, CMPX, CRP, SED, GLYHGB ####[address] [address] Erythrocyte morphology ANISOCYTOSIS PRESENT Normal [facility] Comment on above: Result Comment: [address] [address] Performed By: #### C DP, CMPX, CRP, SED, GLYHGB ####[address] [address] Erythrocytes (RBC) 0.0 per 100 WBC Normal 0.0 [facility] Comment on above: Performed By: #### C DP, CMPX, CRP, SED, GLYHGB ####[address] [address] Erythrocytes (RBC) 3.42 10*6/uL Low 4.21-5.77 [facility] Comment on above: Performed By: #### C DP, CMPX, CRP, SED, GLYHGB ####[address] [address] Granulocytes/100 WBC (Bld) 0.19 k/uL Normal 0.00-0.30 [facility] Comment on above: Performed By: #### C DP, CMPX, CRP, SED, GLYHGB ####[address] [address] Hematocrit (HCT) 29.4 % Low 40.7-50.3 [facility] Comment on above: Performed By: #### C DP, CMPX, CRP, SED, GLYHGB ####[address] [address] Hemoglobin mass conc (Bld) 8.8 g/dL Low 13.0-17.0 [facility] Comment on above: Performed By: #### C DP, CMPX, CRP, SED, GLYHGB ####[address] [address] Immature granulocytes #/vol (Bld) 2 % High 0 [facility] Comment on above: Performed By: #### C DP, CMPX, CRP, SED, GLYHGB ####[address] [address] Lymphocytes 2.00 10*3/uL Normal 1.10-3.70 [facility] Comment on above: Performed By: #### C DP, CMPX, CRP, SED, GLYHGB ####[address] [address] Lymphocytes/100 leukocytes 25 % Normal 24-43 [facility] Comment on above: Performed By: #### C DP, CMPX, CRP, SED, GLYHGB ####[address] [address] MCH 25.7 pg Normal 25.2-33.5 [facility] Comment on above: Performed By: #### C DP, CMPX, CRP, SED, GLYHGB ####[address] [address] MCHC mass conc (RBC) 29.9 g/dL Normal 28.4-34.8 [facility] Comment on above: Performed By: #### C DP, CMPX, CRP, SED, GLYHGB ####[address] [address] MCV 86.0 fL Normal 82.6-102.9 [facility] Comment on above: Performed By: #### C DP, CMPX, CRP, SED, GLYHGB ####[address] [address] Monocytes 0.53 10*3/uL Normal 0.10-1.20 [facility] Comment on above: Performed By: #### C DP, CMPX, CRP, SED, GLYHGB ####[address] [address] Monocytes/100 leukocytes 7 % Normal 3-12 [facility] Comment on above: Performed By: #### C DP, CMPX, CRP, SED, GLYHGB ####[address] [address] Neutrophil (Seg) 63 % Normal 36-65 [facility] Comment on above: Performed By: #### C DP, CMPX, CRP, SED, GLYHGB ####[address] [address] Platelet mean volume (PMV) 9.9 fL Normal 8.1-13.5 [facility] Comment on above: Performed By: #### C DP, CMPX, CRP, SED, GLYHGB ####[address] [address] Platelets 257 10*3/uL Normal 138-453 [facility] Comment on above: Performed By: #### C DP, CMPX, CRP, SED, GLYHGB ####[facility] [place] [address] WBC (Leukocytes) 8.0 10*3/uL Normal 3.5-11.3 [facility] Comment on above: Performed By: #### C DP, CMPX, CRP, SED, GLYHGB ####[facility] [address] [place] [address] Auto Diff Performed NOT REPORTED Normal [facility] Comment on above: Performed By: #### C DP, CMPX, CRP, SED, GLYHGB ####[facility] [id number] [place] [address] Platelets NOT REPORTED Normal [facility] Comment on above: Performed By: #### C DP, CMPX, CRP, SED, GLYHGB ####[address] [place], [place] [id number] WBC Morphology NOT REPORTED Normal [facility] Comment on above: Performed By: #### C DP, CMPX, CRP, SED, GLYHGB ####[facility] [id number] [place] [address] Discharge Summaryon 04-13-19 18 HIM IP Note OR [place] Normal [facility] Plan of Careon 04-13-2017 HIM IP Note OR [place] Normal [facility] HIM IP Note OR [place] Normal [facility] Progress Noteon 04-13-2017 HIM IP Note OR [place] Normal [facility] HIM IP Note OR [place] Normal [facility] HIM IP Note OR [place] Normal [facility] HIM IP Note OR [place] Tanner Normal [facility] HIM IP Note OR [place] Tanner Normal [facility] HIM IP Note OR [place] Tanner Normal [facility] Basic Metabolic Profon 04-12 (cont.) Normal [facility] Comment on above: Result Comment: Aver age GFR for 50-59 years old: 93 mL/min/1.73sq mChronic Kidney Disease: <60 mL/min/1.73sq mKidney failure: <15 mL/min/1.73sq meGFR calculated using average adult body mass. Additional eGFR calculator available at:http://www.Playhem.Hitpost/multiple_crcl_2012.htm[address] [address] Performed By: #### C DP, CMPX, CRP, SED, GLYHGB ####[address] [address] Anion gap 8 mmol/L Low 9-17 [facility] Comment on above: Performed By: #### C DP, CMPX, CRP, SED, GLYHGB ####[address] [address] Calcium 8.8 mg/dL Normal 8.6-10.4 [facility] Comment on above: Performed By: #### C DP, CMPX, CRP, SED, GLYHGB ####[address] [address] Chloride 107 mmol/L Normal 98-107 [facility] [facility] Comment on above: Performed By: #### C DP, CMPX, CRP, SED, GLYHGB ####[address] [address] CO2 23 mmol/L Normal 20-31 [facility] Comment on above: Performed By: #### C DP, CMPX, CRP, SED, GLYHGB ####[address] [address] Creatinine 1.01 mg/dL Normal 0.70-1.20 [facility] Comment on above: Performed By: #### C DP, CMPX, CRP, SED, GLYHGB ####[address] [address] eGFR (non-black) mL/min/{1.73_m2} Normal >60 [facility] Comment on above: Performed By: #### C DP, CMPX, CRP, SED, GLYHGB ####[address] [address] Glucose mass conc 172 mg/dL High 70-99 [facility] Comment on above: Performed By: #### C DP, CMPX, CRP, SED, GLYHGB ####[address] [address] Potassium molar conc 3.9 mmol/L Normal 3.7-5.3 [facility] Comment on above: Performed By: #### C DP, CMPX, CRP, SED, GLYHGB ####[address] [address] Sodium 138 mmol/L Normal 135-144 [facility] Comment on above: Performed By: #### C DP, CMPX, CRP, SED, GLYHGB ####[address] [address] Urea nitrogen 15 mg/dL Normal 6-20 [facility] Comment on above: Performed By: #### C DP, CMPX, CRP, SED, GLYHGB ####[address] [address] BUN/CRE Ratio NOT REPORTED Normal -20 [facility] Comment on above: Performed By: #### C DP, CMPX, CRP, SED, GLYHGB ####[address] [address] Staging: NOT REPORTED Normal [facility] Comment on above: Performed By: #### C DP, CMPX, CRP, SED, GLYHGB ####[address] [address] CBC with Diffon 04-12-2017 Abs. Basophil <0.03 Normal 0.00-0.20 [facility] Comment on above: Performed By: #### C DP, CMPX, CRP, SED, GLYHGB ####[address] [address] Abs.Neutrophil (Seg) 4.31 k/uL Normal 1.50-8.10 [facility] Comment on above: Performed By: #### C DP, CMPX, CRP, SED, GLYHGB ####[address] [address] Basophils/100 WBC Auto (Bld) 0 % Normal 0-2 [facility] Comment on above: Performed By: #### C DP, CMPX, CRP, SED, GLYHGB ####[address] [address] Eosinophils 0.21 10*3/uL Normal 0.00-0.44 [facility] Comment on above: Performed By: #### C DP, CMPX, CRP, SED, GLYHGB ####[address] [address] Eosinophils/100 leukocytes 3 % Normal 1-4 [facility] Comment on above: Performed By: #### C DP, CMPX, CRP, SED, GLYHGB ####[address] [address] Erythrocyte distribution width Auto Ratio (RBC) 14.7 % High 11.8-14.4 [facility] Comment on above: Performed By: #### C DP, CMPX, CRP, SED, GLYHGB ####[address] [address] Erythrocyte morphology ANISOCYTOSIS PRESENT Normal [facility] Comment on above: Result Comment: [address] [address] Performed By: #### C DP, CMPX, CRP, SED, GLYHGB ####[address] [address] Erythrocytes (RBC) 3.45 10*6/uL Low 4.21-5.77 [facility] Comment on above: Performed By: #### C DP, CMPX, CRP, SED, GLYHGB ####[address] [address] Granulocytes/100 WBC (Bld) 0.22 k/uL Normal 0.00-0.30 [facility] Comment on above: Performed By: #### C DP, CMPX, CRP, SED, GLYHGB ####[address] [address] Hematocrit (HCT) 28.9 % Low 40.7-50.3 [facility] Comment on above: Performed By: #### C DP, CMPX, CRP, SED, GLYHGB ####[address] [address] Hemoglobin mass conc (Bld) 8.9 g/dL Low 13.0-17.0 [facility] Comment on above: Performed By: #### C DP, CMPX, CRP, SED, GLYHGB ####[address] [address] Immature granulocytes #/vol (Bld) 3 % High 0 [facility] Comment on above: Performed By: #### C DP, CMPX, CRP, SED, GLYHGB ####[address] [address] Lymphocytes 1.83 10*3/uL Normal 1.10-3.70 [facility] Comment on above: Performed By: #### C DP, CMPX, CRP, SED, GLYHGB ####[address] [address] Lymphocytes/100 leukocytes 26 % Normal 24-43 [facility] Comment on above: Performed By: #### C DP, CMPX, CRP, SED, GLYHGB ####[address] [address] MCH 25.8 pg Normal 25.2-33.5 [facility] Comment on above: Performed By: #### C DP, CMPX, CRP, SED, GLYHGB ####[address] [address] MCHC mass conc (RBC) 30.8 g/dL Normal 28.4-34.8 [facility] Comment on above: Performed By: #### C DP, CMPX, CRP, SED, GLYHGB ####[address] [address] MCV 83.8 fL Normal 82.6-102.9 [facility] Comment on above: Performed By: #### C DP, CMPX, CRP, SED, GLYHGB ####[address] [address] Monocytes 0.58 10*3/uL Normal 0.10-1.20 [facility] Comment on above: Performed By: #### C DP, CMPX, CRP, SED, GLYHGB ####[address] [address] Monocytes/100 leukocytes 8 % Normal 3-12 [facility] Comment on above: Performed By: #### C DP, CMPX, CRP, SED, GLYHGB ####[address] [address] Neutrophil (Seg) 60 % Normal 36-65 [facility] Comment on above: Performed By: #### C DP, CMPX, CRP, SED, GLYHGB ####[address] [address] Platelet mean volume (PMV) 9.3 fL Normal 8.1-13.5 [facility] Comment on above: Performed By: #### C DP, CMPX, CRP, SED, GLYHGB ####[facility] [address] [place] [address] Platelets 231 10*3/uL Normal 138-453 [facility] Comment on above: Performed By: #### C DP, CMPX, CRP, SED, GLYHGB ####[address] [place] [address] WBC (Leukocytes) 7.2 10*3/uL Normal 3.5-11.3 [facility] Comment on above: Performed By: #### C DP, CMPX, CRP, SED, GLYHGB ####[address] [address] Auto Diff Performed NOT REPORTED Normal [facility] Comment on above: Performed By: #### C DP, CMPX, CRP, SED, GLYHGB ####[address] [address] Platelets NOT REPORTED Normal [facility] Comment on above: Performed By: #### C DP, CMPX, CRP, SED, GLYHGB ####[address] [address] WBC Morphology NOT REPORTED Normal [facility] Comment on above: Performed By: #### C DP, CMPX, CRP, SED, GLYHGB ####[address] [address] Cult,Aerobe/Anaerobeon 04-12 Neutrophils Specimen Description .TISSUE RIGHT [...] SUSCEPTIBLEVancomycin 1 SUSCEPTIBLE Normal [facility] Comment on above: Performed By: #### A ANC ####Gautam [address] [place] [address] Plan of Careon 04-12-2017 HIM IP Note OR Chestnut Tanner Normal [facility] HIM IP Note OR Chestnut Tanner Normal [facility] HIM IP Note OR Chestnut Tanner Normal [facility] HIM IP Note OR Chestnut Tanner Normal [facility] HIM IP Note OR Chestnut Tanner Normal [facility] Progress Noteon 04-12-2017 HIM IP Note OR Chestnut Tanner Normal [facility] HIM IP Note OR Chestnut Tanner Normal [facility] HIM IP Note OR Chestnut Tanner Normal [facility] HIM IP Note OR Chestnut Tanner Normal [facility] HIM IP Note OR Chestnut Tanner Normal [facility] HIM IP Note OR Chestnut Tanner Normal [facility] Basic Metabolic Profon 04-11 (cont.) Normal [facility] Comment on above: Result Comment: Aver age GFR for 50-59 years old: 93 mL/min/1.73sq mChronic Kidney Disease: <60 mL/min/1.73sq mKidney failure: <15 mL/min/1.73sq meGFR calculated using average adult body mass. Additional eGFR calculator available at:http://[email or web address]_[email or web address] [address] ([phone] Performed By: #### C DP, CMPX, CRP, SED, GLYHGB ####[facility] [place] [address] Anion gap 14 mmol/L Normal 9-17 [facility] Comment on above: Performed By: #### C DP, CMPX, CRP, SED, GLYHGB ####[address] [place] [address] Calcium 8.2 mg/dL Low 8.6-10.4 [facility] Comment on above: Performed By: #### C DP, CMPX, CRP, SED, GLYHGB ####[address] [address] Chloride 101 mmol/L Normal 98-107 [facility] Comment on above: Performed By: #### C DP, CMPX, CRP, SED, GLYHGB ####[address] [address] CO2 21 mmol/L Normal 20-31 [facility] Comment on above: Performed By: #### C DP, CMPX, CRP, SED, GLYHGB ####[address] [place] [address] Creatinine 1.16 mg/dL Normal 0.70-1.20 [facility] Comment on above: Performed By: #### C DP, CMPX, CRP, SED, GLYHGB ####[facility] [address] [place] [address] eGFR (non-black) mL/min/{1.73_m2} Normal >60 [facility] Comment on above: Performed By: #### C DP, CMPX, CRP, SED, GLYHGB ####[address] [place] [address] Glucose mass conc 153 mg/dL High 70-99 [facility] Comment on above: Performed By: #### C DP, CMPX, CRP, SED, GLYHGB ####[address] [address] Potassium molar conc 4.0 mmol/L Normal 3.7-5.3 [facility] Comment on above: Performed By: #### C DP, CMPX, CRP, SED, GLYHGB ####[address] [address] Sodium 136 mmol/L Normal 135-144 [facility] Comment on above: Performed By: #### C DP, CMPX, CRP, SED, GLYHGB ####[address] [address] Urea nitrogen 18 mg/dL Normal 6-20 [facility] Comment on above: Performed By: #### C DP, CMPX, CRP, SED, GLYHGB ####[address] [address] BUN/CRE Ratio NOT REPORTED Normal 9-20 [facility] Comment on above: Performed By: #### C DP, CMPX, CRP, SED, GLYHGB ####[address] [address] Staging: NOT REPORTED Normal [facility] Comment on above: Performed By: #### C DP, CMPX, CRP, SED, GLYHGB ####[address] [address] C-Reactive Proteinon 14-2 018 C reactive protein (CRP) 55.5 mg/L High 0.0-5.0 [facility] Comment on above: Result Comment: [address] [address] Performed By: #### C DP, CMPX, CRP, SED, GLYHGB ####[address] [address] CBC with Diffon 04-11-2017 Abs. Basophil <0.03 Normal 0.00-0.20 [facility] Comment on above: Performed By: #### C DP, CMPX, CRP, SED, GLYHGB ####[address] [address] Abs.Neutrophil (Seg) 5.04 k/uL Normal 1.50-8.10 [facility] Comment on above: Performed By: #### C DP, CMPX, CRP, SED, GLYHGB ####[address] [address] Basophils/100 WBC Auto (Bld) 0 % Normal 0-2 [facility] Comment on above: Performed By: #### C DP, CMPX, CRP, SED, GLYHGB ####[place] [address] Eosinophils 0.24 10*3/uL Normal 0.00-0.44 [facility] Comment on above: Performed By: #### C DP, CMPX, CRP, SED, GLYHGB ####[address] [address] Eosinophils/100 leukocytes 3 % Normal 1-4 [facility] Comment on above: Performed By: #### C DP, CMPX, CRP, SED, GLYHGB ####[address] [address] Erythrocyte distribution width Auto Ratio (RBC) 14.8 % High 11.8-14.4 [facility] Comment on above: Performed By: #### C DP, CMPX, CRP, SED, GLYHGB ####[address] [address] Erythrocyte morphology ANISOCYTOSIS PRESENT Normal [facility] Comment on above: Result Comment: [address] [address] Performed By: #### C DP, CMPX, CRP, SED, GLYHGB ####[place] [address] Erythrocytes (RBC) 3.36 10*6/uL Low 4.21-5.77 [facility] Comment on above: Performed By: #### C DP, CMPX, CRP, SED, GLYHGB ####[place] [address] Granulocytes/100 WBC (Bld) 0.09 k/uL Normal 0.00-0.30 [facility] Comment on above: Performed By: #### C DP, CMPX, CRP, SED, GLYHGB ####[address] [address] Hematocrit (HCT) 28.8 % Low 40.7-50.3 [facility] Comment on above: Performed By: #### C DP, CMPX, CRP, SED, GLYHGB ####[address] [address] Hemoglobin mass conc (Bld) 8.8 g/dL Low 13.0-17.0 [facility] Comment on above: Performed By: #### C DP, CMPX, CRP, SED, GLYHGB ####[address] [address] Immature granulocytes #/vol (Bld) 1 % High 0 [facility] Comment on above: Performed By: #### C DP, CMPX, CRP, SED, GLYHGB ####[address] [address] Lymphocytes 1.73 10*3/uL Normal 1.10-3.70 [facility] Comment on above: Performed By: #### C DP, CMPX, CRP, SED, GLYHGB ####[address] [address] Lymphocytes/100 leukocytes 23 % Low 24-43 [facility] Comment on above: Performed By: #### C DP, CMPX, CRP, SED, GLYHGB ####[address] [address] MCH 26.2 pg Normal 25.2-33.5 [facility] Comment on above: Performed By: #### C DP, CMPX, CRP, SED, GLYHGB ####[address] [address] MCHC mass conc (RBC) 30.6 g/dL Normal 28.4-34.8 [facility] Comment on above: Performed By: #### C DP, CMPX, CRP, SED, GLYHGB ####[address] [address] MCV 85.7 fL Normal 82.6-102.9 [facility] Comment on above: Performed By: #### C DP, CMPX, CRP, SED, GLYHGB ####[address] [address] Monocytes 0.56 10*3/uL Normal 0.10-1.20 [facility] Comment on above: Performed By: #### C DP, CMPX, CRP, SED, GLYHGB ####[address] [address] Monocytes/100 leukocytes 7 % Normal 3-12 [facility] Comment on above: Performed By: #### C DP, CMPX, CRP, SED, GLYHGB ####[address] [address] Neutrophil (Seg) 66 % High 36-65 [facility] Comment on above: Performed By: #### C DP, CMPX, CRP, SED, GLYHGB ####[facility] [address] [place] [address] Platelet mean volume (PMV) 9.9 fL Normal 8.1-13.5 [facility] Comment on above: Performed By: #### C DP, CMPX, CRP, SED, GLYHGB ####[address] [address] Platelets 264 10*3/uL Normal 138-453 [facility] Comment on above: Performed By: #### C DP, CMPX, CRP, SED, GLYHGB ####[address] [address] WBC (Leukocytes) 7.7 10*3/uL Normal 3.5-11.3 [facility] Comment on above: Performed By: #### C DP, CMPX, CRP, SED, GLYHGB ####[address] [address] Auto Diff Performed NOT REPORTED Normal [facility] Comment on above: Performed By: #### C DP, CMPX, CRP, SED, GLYHGB ####[address] [address] Platelets NOT REPORTED Normal [facility] Comment on above: Performed By: #### C DP, CMPX, CRP, SED, GLYHGB ####[address] [address] WBC Morphology NOT REPORTED Normal [facility] Comment on above: Performed By: #### C DP, CMPX, CRP, SED, GLYHGB ####[address] [address] Hemoglobin A1Con 04-11-2017 Glucose mass conc 315 mg/dL Normal [facility] Comment on above: Result Comment: The ADA and AACC recommend providing the estimated average glucose result to permit better patient understanding of their HBA1c result.[facility] [place] [address] Performed By: #### C DP, CMPX, CRP, SED, GLYHGB ####[address] [place] [address] Hemoglobin A1c/Hemoglobin.total mass fraction (Bld) 12.6 % High 4.0-6.0 [facility] Comment on above: Performed By: #### C DP, CMPX, CRP, SED, GLYHGB ####[facility] [address] [place] [address] Plan of Careon 04-11-2017 HIM IP Note OR Chestnut Tanner Normal [facility] HIM IP Note OR Chestnut Tanner Normal [facility] HIM IP Note OR Chestnut Tanner Normal [facility] HIM IP Note OR Chestnut Tanner Normal [facility] Progress Noteon 04-11-2017 HIM IP Note OR Chestnut Tanner Normal [facility] HIM IP Note OR Chestnut Tanner Normal [facility] HIM IP Note OR Chestnut Tanner Normal [facility] HIM IP Note OR Chestnut Tanner Normal [facility] Consulton 04-10-2017 HIM IP Note OR Chestnut Tanner Normal [facility] Cult,Urine,Cathon 04-10-2017 Cult,Urine,Cath Specimen Description .CATHETERIZED URINE Special Requests NOT REPORTED Culture PRESUMPTIVE ID: LEO ALBICANS >[id number] CFU/ML Report Status FINAL 04/10/2017 Normal [facility] Comment on above: Performed By: #### C DP, CMPX, CRP, SED, GLYHGB ####[address] [place], [place] [address] Influenza A + B, PCRon 04-10 Influenza A + B, PCR Specimen Descriptio n .NASOPHARYNGEAL SWABSpecial Requests NOT REPORTEDDirect Exam NEGATIVE: Influenza A and B RNA not detected by nucleic acid amplification. The results obtained should be interpreted in conjunction with clinical findings and other laboratory markers. The performance characterisitics of this molecular test were validated by the molecular microbiology department of [facility]. Report Status FINAL 04/10/2017 Normal [facility] Comment on above: Performed By: #### C DP, CMPX, CRP, SED, GLYHGB ####[facility] [address] [place] [address] OPERATIVE REPORTon 8 OPERATIVE REPORT [facility] [address] [place] [address] OPERATIVE REPORTPATIENT NAME: GANGA STINSON : 1960[facility] REC NO: [id number] ROOM: [address] [place] [address] NO: [id number] ADMIT DATE: 04/09/2017PROVIDER: William Gregorio-JudgeDATE OF PROCEDURE: 04/10/2016SURGEON: William Gregorio-, DPMASSISTANT: Benito Chacon, CRISTIAAN, PGY-1PREOPERATIVE DIAGNOSES:1. Deep space abscess, right heel.2. [...] for recovery. The patient has a primary cloud engineer, Dr. 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 The department of Infectious Disease,Internal Medicine, and specialty medicine services will provide care duringthe inpatient admission. He will return to the care of Dr. Min [facility] [place], upon discharge.INDICATIONS FOR OPERATION: This is a [...] He would follow up with his usual cloud engineer on anoutpatient basis. The departments of Internal Medicine and InfectiousDisease will guide our care in the interim. Cultures should be availablewith sensitivities in approximately 72 hours and consider dischargeplanning then.WILLIAM VIKASKYMMANFRED-JUDGED: 04/10/2017 15:31:53 MS/V_SSROR_IJob#: [id number] Doc#: [id number]: Yakov Min [facility] Department of Infectious Disease Internal Medicine Normal [facility] Plan of Careon 04-10-2017 HIM IP Note OR Chestnut Tanner Normal [facility] HIM IP Note OR Chestnut Tanner Normal [facility] Progress Noteon 04-10-2017 HIM IP Note OR Chestnut Tanner Normal [facility] HIM IP Note OR Chestnut Tanner Normal [facility] XR ANKLE RIGHT STANDARDon XR ANKLE [...] Cavazos MD04/09/17inal result Normal [facility] C-Reactive Proteinon 018 C reactive protein (CRP) 114.3 mg/L High 0.0-5.0 [facility] Comment on above: Result Comment: [employer] [address] [place] [id number] ([phone] Performed By: #### C DP, CMPX, CRP, SED, GLYHGB ####[address] [address] CBC with Diffon 04-09-2017 Abs. Basophil <0.03 Normal 0.00-0.20 [facility] Comment on above: Performed By: #### C DP, CMPX, CRP, SED, GLYHGB ####[address] [address] Abs.Neutrophil (Seg) 5.95 k/uL Normal 1.50-8.10 [facility] Comment on above: Performed By: #### C DP, CMPX, CRP, SED, GLYHGB ####[address] [address] Basophils/100 WBC Auto (Bld) 0 % Normal 0-2 [facility] Comment on above: Performed By: #### C DP, CMPX, CRP, SED, GLYHGB ####[address] [address] Eosinophils 0.11 10*3/uL Normal 0.00-0.44 [facility] Comment on above: Performed By: #### C DP, CMPX, CRP, SED, GLYHGB ####[address] [address] Eosinophils/100 leukocytes 1 % Normal 1-4 [facility] Comment on above: Performed By: #### C DP, CMPX, CRP, SED, GLYHGB ####[address] [address] Erythrocyte distribution width Auto Ratio (RBC) 15.0 % High 11.8-14.4 [facility] Comment on above: Performed By: #### C DP, CMPX, CRP, SED, GLYHGB ####[address] [address] Erythrocyte morphology ANISOCYTOSIS PRESENT Normal [facility] Comment on above: Result Comment: [address] [address] Performed By: #### C DP, CMPX, CRP, SED, GLYHGB ####[address] [address] Erythrocytes (RBC) 3.50 10*6/uL Low 4.21-5.77 [facility] Comment on above: Performed By: #### C DP, CMPX, CRP, SED, GLYHGB ####[address] [address] Granulocytes/100 WBC (Bld) 0.09 k/uL Normal 0.00-0.30 [facility] Comment on above: Performed By: #### C DP, CMPX, CRP, SED, GLYHGB ####[address] [address] Hematocrit (HCT) 29.9 % Low 40.7-50.3 [facility] Comment on above: Performed By: #### C DP, CMPX, CRP, SED, GLYHGB ####[address] [address] Hemoglobin mass conc (Bld) 9.0 g/dL Low 13.0-17.0 [facility] Comment on above: Performed By: #### C DP, CMPX, CRP, SED, GLYHGB ####[address] [address] Immature granulocytes #/vol (Bld) 1 % High 0 [facility] Comment on above: Performed By: #### C DP, CMPX, CRP, SED, GLYHGB ####[address] [address] Lymphocytes 1.60 10*3/uL Normal 1.10-3.70 [facility] Comment on above: Performed By: #### C DP, CMPX, CRP, SED, GLYHGB ####[address] [place] [address] Lymphocytes/100 leukocytes 19 % Low 24-43 [facility] Comment on above: Performed By: #### C DP, CMPX, CRP, SED, GLYHGB ####[address] [address] MCH 25.7 pg Normal 25.2-33.5 [facility] Comment on above: Performed By: #### C DP, CMPX, CRP, SED, GLYHGB ####[address] [address] MCHC mass conc (RBC) 30.1 g/dL Normal 28.4-34.8 [facility] Comment on above: Performed By: #### C DP, CMPX, CRP, SED, GLYHGB ####[address] [address] MCV 85.4 fL Normal 82.6-102.9 [facility] Comment on above: Performed By: #### C DP, CMPX, CRP, SED, GLYHGB ####[address] [address] Monocytes 0.53 10*3/uL Normal 0.10-1.20 [facility] Comment on above: Performed By: #### C DP, CMPX, CRP, SED, GLYHGB ####[address] [address] Monocytes/100 leukocytes 6 % Normal 3-12 [facility] Comment on above: Performed By: #### C DP, CMPX, CRP, SED, GLYHGB ####[address] [address] Neutrophil (Seg) 73 % High 36-65 [facility] Comment on above: Performed By: #### C DP, CMPX, CRP, SED, GLYHGB ####[address] [address] Platelet mean volume (PMV) 9.6 fL Normal 8.1-13.5 [facility] Comment on above: Performed By: #### C DP, CMPX, CRP, SED, GLYHGB ####[address] [address] Platelets 224 10*3/uL Normal 138-453 [facility] Comment on above: Performed By: #### C DP, CMPX, CRP, SED, GLYHGB ####[address] [address] WBC (Leukocytes) 8.3 10*3/uL Normal 3.5-11.3 [facility] Comment on above: Performed By: #### C DP, CMPX, CRP, SED, GLYHGB ####[address] [address] Auto Diff Performed NOT REPORTED Normal [facility] Comment on above: Performed By: #### C DP, CMPX, CRP, SED, GLYHGB ####[address] [address] Platelets NOT REPORTED Normal [facility] Comment on above: Performed By: #### C DP, CMPX, CRP, SED, GLYHGB ####[address] [address] WBC Morphology NOT REPORTED Normal [facility] Comment on above: Performed By: #### C DP, CMPX, CRP, SED, GLYHGB ####[address] [address] Comp Metabolic Pr/rfx MGon 0 - (cont.) Normal [facility] Comment on above: Result Comment: Aver age GFR for 50-59 years old: 93 mL/min/1.73sq mChronic Kidney Disease: <60 mL/min/1.73sq mKidney failure: <15 mL/min/1.73sq meGFR calculated using average adult body mass. Additional eGFR calculator available at:http://www.Rollad/multiple_crcl_2012.htm[address] [address] Performed By: #### C DP, CMPX, CRP, SED, GLYHGB ####[facility] [address] [place] [address] Alanine aminotransferase (ALT) 9 U/L Normal 5-41 [facility] Comment on above: Performed By: #### C DP, CMPX, CRP, SED, GLYHGB ####[address] [address] Albumin 2.8 g/dL Low 3.5-5.2 [facility] Comment on above: Performed By: #### C DP, CMPX, CRP, SED, GLYHGB ####[facility] [address] [place] [address] Albumin/Globulin Ratio 0.7 {ratio} Low 1.0-2.5 [facility] Comment on above: Performed By: #### C DP, CMPX, CRP, SED, GLYHGB ####[facility] [address] [place] [address] Alkaline Phos 57 U/L Normal 40-129 [facility] Comment on above: Performed By: #### C DP, CMPX, CRP, SED, GLYHGB ####[facility] [address] [place] [address] Anion gap 13 mmol/L Normal 9-17 [facility] Comment on above: Performed By: #### C DP, CMPX, CRP, SED, GLYHGB ####[address] [address] Aspartate aminotransferase (AST) 9 U/L Normal <40 [facility] Comment on above: Performed By: #### C DP, CMPX, CRP, SED, GLYHGB ####[address] [address] Bilirubin Ql (U) 0.26 mg/dL Low 0.3-1.2 [facility] Comment on above: Performed By: #### C DP, CMPX, CRP, SED, GLYHGB ####[address] [address] Calcium 8.4 mg/dL Low 8.6-10.4 [facility] Comment on above: Performed By: #### C DP, CMPX, CRP, SED, GLYHGB ####[address] [address] Chloride 99 mmol/L Normal 98-107 [facility] Comment on above: Performed By: #### C DP, CMPX, CRP, SED, GLYHGB ####[address] [address] CO2 21 mmol/L Normal 20-31 [facility] Comment on above: Performed By: #### C DP, CMPX, CRP, SED, GLYHGB ####[address] [address] Creatinine 1.13 mg/dL Normal 0.70-1.20 [facility] Comment on above: Performed By: #### C DP, CMPX, CRP, SED, GLYHGB ####[address] [address] eGFR (non-black) mL/min/{1.73_m2} Normal >60 [facility] Comment on above: Performed By: #### C DP, CMPX, CRP, SED, GLYHGB ####[facility] [place] [address] Glucose mass conc 267 mg/dL High 70-99 [facility] Comment on above: Performed By: #### C DP, CMPX, CRP, SED, GLYHGB ####[address] [place] [address] Potassium molar conc 4.3 mmol/L Normal 3.7-5.3 [facility] Comment on above: Performed By: #### C DP, CMPX, CRP, SED, GLYHGB ####[address] [address] Protein 7.0 g/dL Normal 6.4-8.3 [facility] Comment on above: Performed By: #### C DP, CMPX, CRP, SED, GLYHGB ####[address] [address] Sodium 133 mmol/L Low 135-144 [facility] Comment on above: Performed By: #### C DP, CMPX, CRP, SED, GLYHGB ####[address] [address] Urea nitrogen 22 mg/dL High 6-20 [facility] Comment on above: Performed By: #### C DP, CMPX, CRP, SED, GLYHGB ####[address] [place] [address] BUN/CRE Ratio NOT REPORTED Normal 9-20 [facility] Comment on above: Performed By: #### C DP, CMPX, CRP, SED, GLYHGB ####[address] [address] Staging: NOT REPORTED Normal [facility] Comment on above: Performed By: #### C DP, CMPX, CRP, SED, GLYHGB ####[address] [place] [address] Consulton 04-09-2017 HIM IP Note OR Chestnut Tanner Normal [facility] HIM IP Note OR Chestnut Tanner Normal [facility] HIM IP Note OR Chestnut Tanner Normal [facility] Flu A/B Ag Detectionon 04-09 Flu A/B Ag Detection Specimen Descriptio n .NASOPHARYNGEAL SWABSpecial Requests NOT REPORTEDDirect Exam PRESUMPTIVE NEGATIVE for Influenza A + B antigens. PCR testing to confirm this result is available upon request. Specimen will be saved in the laboratory for 7 days. Please call [phone] if PCR testing is indicated. Report Status FINAL 04/09/2017 Normal [facility] Comment on above: Performed By: #### C DP, CMPX, CRP, SED, GLYHGB ####[address] [place] [address] History and Physicalon 04-09 [facility] IP Note OR Chestnut Tanner Normal [facility] MRI FOOT RIGHT W WO CONTRAST [...] suspected despite a lack of definitive precontrast I2mrnduqvk changes.Large ulcer overlying the lateral malleolus with underlying osteomyelitis.Interpreted by:SAMMI Tellezigned by:Jesusita Mock MD04/09/17inal result Normal [facility] Op Noteon 04-09-2017 HIM IP Note OR Chestnut Tanner Normal [facility] Plan of Careon 04-09-2017 HIM IP Note OR Chestnut Tanner Normal [facility] HIM IP Note OR Chestnut Tanner Normal [facility] Progress Noteon 04-09-2017 HIM IP Note OR Chestnut Tanner Normal [facility] HIM IP Note OR Chestnut Tanner Normal [facility] HIM IP Note OR Chestnut Tanner Normal [facility] RSV Ag Detectionon 8 RSV Ag Detection Specimen Description .NASOPHARYNGEAL SWABSpecial Requests NOT REPORTEDDirect Exam Presumptive negative for the presence of RSV antigen. PCR testing to confirm this result is available upon request. Specimen will be saved in the laboratory for 7 days. Please call [phone] if PCR testing is indicated. Report Status FINAL 04/09/2017 Normal [facility] Comment on above: Performed By: #### C DP, CMPX, CRP, SED, GLYHGB ####[address] [place] [address] Sedimentation Rateon 018 Sedimentation Rate 80 mm High 0-10 [facility] Comment on above: Result Comment: [employer] [address] [place] [address] Performed By: #### C DP, CMPX, CRP, SED, GLYHGB ####[facility] HospitalAgile Wind PowerPnzgbochvmvq[address] [place] [address] XR FOOT RIGHT STANDARDon XR FOOT RIGHT [...] Mock MD04/09/17inal result Normal [facility] Vital Signs Date Time Vital Sign Value Performing Clinician Facility 10-02-2024 13:45-0400 Diastolic blood pressure 63 mm[Hg] Fidel Abbott MD Work Phone: [facility] 10-02-2024 13:45-0400 Heart rate 55 /min Fidel Abbott MD Work Phone: [facility] 10-02-2024 13:45-0400 Respiratory rate 16 /min Fidel Abbott MD Work Phone: [facility] 10-02-2024 13:45-0400 SaO2% (BldA) [Mass fraction] 97 % Fidel Abbott MD Work Phone: [facility] 10-02-2024 13:45-0400 Systolic blood pressure 108 mm[Hg] Fidel Abbott MD Work Phone: [facility] 10-02-2024 13:00-0400 Inhaled oxygen flow rate 6 L/min Fidel Abbott MD Work Phone: [facility] 10-02-2024 10:58-0400 Body height 180.34 cm Fidel Abbott MD Work Phone: [facility] 10-02-2024 10:58-0400 Body temperature 98.4 [degF] Fidel Abbott MD Work Phone: [facility] 10-02-2024 10:58-0400 Body weight 102.05 kg Fidel Abbott MD Work Phone: [facility] 08-30-2024 12:17-0400 Body temperature 96.7 [degF] Fidel Abbott MD Work Phone: [facility] 08-30-2024 12:17-0400 Diastolic blood pressure 42 mm[Hg] Fidel Abbott MD Work Phone: [facility] 08-30-2024 12:17-0400 Heart rate 56 /min Fidel Abbott MD Work Phone: [facility] 08-30-2024 12:17-0400 SaO2% (BldA) [Mass fraction] 97 % Fidel Abbott MD Work Phone: [facility] 08-30-2024 12:17-0400 Systolic blood pressure 98 mm[Hg] Fidel Abbott MD Work Phone: [facility] 08-15-2024 11:19-0400 Body height 180.34 cm Fidel Abbott MD Work Phone: [facility] 08-15-2024 11:19-0400 Body mass index (BMI) [Ratio] 31.4 kg/m2 Fidel Abbott MD Work Phone: [facility] 08-15-2024 11:19-0400 Body weight 102.05 kg Fidel Abbott MD Work Phone: [facility] 08-15-2024 10:28-0400 Body temperature 98.1 [degF] Fidel Abbott MD Work Phone: [facility] 08-15-2024 10:28-0400 Diastolic blood pressure 70 mm[Hg] Fidel Abbott MD Work Phone: [facility] 08-15-2024 10:28-0400 Heart rate 71 /min Fidel Abbott MD Work Phone: [facility] 08-15-2024 10:28-0400 Respiratory rate 16 /min Fidel Abbott MD Work Phone: [facility] 08-15-2024 10:28-0400 Systolic blood pressure 134 mm[Hg] Fidel Abbott MD Work Phone: [facility] 07-31-2024 10:49-0400 Body height 180.3 cm Fidel Abbott MD Work Phone: [facility] 07-31-2024 10:49-0400 Body temperature 97.5 [degF] Fidel Abbott MD Work Phone: [facility] 07-31-2024 10:49-0400 Diastolic blood pressure 70 mm[Hg] Fidel Abbott MD Work Phone: [facility] 07-31-2024 10:49-0400 Heart rate 57 /min Fidel Abbott MD Work Phone: [facility] 07-31-2024 10:49-0400 Respiratory rate 18 /min Fidel Abbott MD Work Phone: [facility] 07-31-2024 10:49-0400 SaO2% (BldA) [Mass fraction] 98 % Fidel Abbott MD Work Phone: [facility] 07-31-2024 10:49-0400 Systolic blood pressure 142 mm[Hg] Fidel Abbott MD Work Phone: [facility] 03-14-2024 11:23-0500 Body height 180.34 cm Fidel Abbott MD Work Phone: [facility] 03-14-2024 11:23-0500 Body mass index (BMI) [Ratio] 31.4 kg/m2 Fidel Abbott MD Work Phone: [facility] 03-14-2024 11:23-0500 Body weight 102.05 kg Fidel Abbott MD Work Phone: [facility] 03-14-2024 10:50-0500 Body temperature 98.2 [degF] Fidel Abbott MD Work Phone: [facility] 03-14-2024 10:50-0500 Diastolic blood pressure 67 mm[Hg] Fidel Abbott MD Work Phone: [facility] 03-14-2024 10:50-0500 Heart rate 61 /min Fidel Abbott MD Work Phone: [facility] 03-14-2024 10:50-0500 Respiratory rate 18 /min Fidel Abbott MD Work Phone: [facility] 03-14-2024 10:50-0500 Systolic blood pressure 128 mm[Hg] Fidel Abbott MD Work Phone: [facility] 02-08-2024 11:44-0500 Body height 180.34 cm Fidel Abbott MD Work Phone: [facility] 02-08-2024 11:44-0500 Body mass index (BMI) [Ratio] 31.4 kg/m2 Fidel Abbott MD Work Phone: [facility] 02-08-2024 11:44-0500 Body weight 102.05 kg Fidel Abbott MD Work Phone: [facility] 02-08-2024 10:51-0500 Body temperature 98.1 [degF] Fidel Abbott MD Work Phone: [facility] 02-08-2024 10:51-0500 Diastolic blood pressure 66 mm[Hg] Fidel Abbott MD Work Phone: [facility] 02-08-2024 10:51-0500 Heart rate 64 /min Fidel Abbott MD Work Phone: [facility] 02-08-2024 10:51-0500 Respiratory rate 18 /min Fidel Abbott MD Work Phone: [facility] 02-08-2024 10:51-0500 Systolic blood pressure 125 mm[Hg] Fidel Abbott MD Work Phone: [facility] 01-20-2024 11:52-0400 Body height 180.3 cm Fidel Abbott MD Work Phone: [facility] 01-20-2024 11:52-0400 Body temperature 97.5 [degF] Fidel Abbott MD Work Phone: [facility] 01-20-2024 11:52-0400 Diastolic blood pressure 58 mm[Hg] Fidel Abbott MD Work Phone: [facility] 01-20-2024 11:52-0400 Heart rate 57 /min Fidel Abbott MD Work Phone: [facility] 01-20-2024 11:52-0400 Respiratory rate 20 /min Fidel Abbott MD Work Phone: [facility] 01-20-2024 11:52-0400 SaO2% (BldA) [Mass fraction] 99 % Fidel Abbott MD Work Phone: [facility] 01-20-2024 11:52-0400 Systolic blood pressure 130 mm[Hg] Fidel Abbott MD Work Phone: [facility] 11-18-2023 13:47-0400 Body height 180.3 cm Fidel Abbott MD Work Phone: [facility] 11-18-2023 13:47-0400 Body temperature 97.5 [degF] Fidel Abbott MD Work Phone: [facility] 11-18-2023 13:47-0400 Diastolic blood pressure 70 mm[Hg] Fidel Abbott MD Work Phone: [facility] 11-18-2023 13:47-0400 Heart rate 60 /min Fidel Abbott MD Work Phone: [facility] 11-18-2023 13:47-0400 Respiratory rate 18 /min Fidel Abbott MD Work Phone: [facility] 11-18-2023 13:47-0400 SaO2% (BldA) [Mass fraction] 97 % Fidel Abbott MD Work Phone: [facility] 11-18-2023 13:47-0400 Systolic blood pressure 160 mm[Hg] Fidel Abbott MD Work Phone: [facility] 06-04-2023 13:27-0500 Diastolic blood pressure 58 mm[Hg] MD Fidel Abbott Work Phone: [facility] 06-04-2023 13:27-0500 Heart rate 60 /min MD Fidel Abbott Work Phone: [facility] 06-04-2023 13:27-0500 Respiratory rate 12 /min MD Fidel Abbott Work Phone: [facility] 06-04-2023 13:27-0500 SaO2% (BldA) [Mass fraction] 98 % MD Fidel Abbott Work Phone: [facility] 06-04-2023 13:27-0500 Systolic blood pressure 135 mm[Hg] MD Fidel Abbott Work Phone: [facility] 06-04-2023 10:49-0500 Body height 180.34 cm MD Fidel Abbott Work Phone: [facility] 06-04-2023 10:49-0500 Body temperature 98 [degF] MD Fidel Abbott Work Phone: [facility] 06-04-2023 10:49-0500 Body weight 114.3 kg MD Fidel Abbott Work Phone: [facility] 05-06-2023 10:40-0500 Body height 177.8 cm Jonathan Bah DPM Work Phone: [facility] 05-06-2023 10:40-0500 Body mass index (BMI) [Ratio] 35.87 kg/m2 Jonathan Olvin DPM Work Phone: [facility] 05-06-2023 10:40-0500 Body weight 113.4 kg Jonathan Bah DPM Work Phone: [facility] 05-06-2023 10:40-0500 Diastolic blood pressure 80 mm[Hg] Jonathan Bah DPM Work Phone: [facility] 05-06-2023 10:40-0500 Heart rate 79 /min Jonathan Olvin DPM Work Phone: [facility] 05-06-2023 10:40-0500 Systolic blood pressure 133 mm[Hg] Jonathan Olvin DPM Work Phone: [facility] 05-04-2023 13:06-0500 Body mass index (BMI) [Ratio] 34.8 kg/m2 MD Fidel Abbott Work Phone: [facility] 05-04-2023 12:48-0500 Body height 180.34 cm MD Fidel Abbott Work Phone: [facility] 05-04-2023 12:48-0500 Body weight 113.39 kg MD Fidel Abbott Work Phone: [facility] 05-04-2023 11:25-0500 Body temperature 97.3 [degF] MD Fidel Abbott Work Phone: [facility] 05-04-2023 11:25-0500 Diastolic blood pressure 78 mm[Hg] MD Fidel Abbott Work Phone: [facility] 05-04-2023 11:25-0500 Heart rate 64 /min MD Fidel Abbott Work Phone: [facility] 05-04-2023 11:25-0500 Respiratory rate 18 /min MD Fidel Abbott Work Phone: [facility] 05-04-2023 11:25-0500 Systolic blood pressure 177 mm[Hg] MD Fidel Abbott Work Phone: [facility] 11-09-2022 13:10-0400 Blood Pressure Location Jovanny VILLA [facility] 11-09-2022 13:10-0400 Diastolic blood pressure 72 mm[Hg] Jovanny VILLA [facility] 11-09-2022 13:10-0400 Heart rate 78 /min Jovanny VILLA [facility] 11-09-2022 13:10-0400 Systolic blood pressure 148 mm[Hg] Jovanny VILLA [facility] 06-26-2022 14:00-0400 Body temperature 97.81 [degF] Eli Pimentel MD Work Phone: [facility] [employer] [facility] 06-26-2022 14:00-0400 Diastolic blood pressure 62 mm[Hg] Eli Pimentel MD Work Phone: [facility] [employer] [facility] 06-26-2022 14:00-0400 Heart rate 70 /min Eli Pimentel MD Work Phone: [employer] 06-26-2022 14:00-0400 Respiratory rate 18 /min Eli Pimentel MD Work Phone: [employer] 06-26-2022 14:00-0400 SaO2% (BldA) [Mass fraction] 95 % Eli Pimentel MD Work Phone: [employer] 06-26-2022 14:00-0400 Systolic blood pressure 144 mm[Hg] Eli Pimentel MD Work Phone: [facility] 06-26-2022 05:30-0400 Body mass index (BMI) [Ratio] 34.28 kg/m2 Eli Pimentel MD Work Phone: [facility] 06-26-2022 05:30-0400 Body weight 111.49 kg Eli Pimentel MD Work Phone: [facility] 06-25-2022 04:54-0400 Body height 180.3 cm Eli Pimentel MD Work Phone: [facility] 06-02-2022 12:14-0500 Body height 172.72 cm MD Fidel Abbott Work Phone: [facility] 06-02-2022 12:14-0500 Body mass index (BMI) [Ratio] 41 kg/m2 MD Fidel Abbott Work Phone: [facility] 06-02-2022 12:14-0500 Body weight 122.46 kg MD Fidel Abbott Work Phone: [facility] 06-02-2022 09:52-0500 Body temperature 97 [degF] MD Fidel Abbott Work Phone: [facility] 06-02-2022 09:52-0500 Diastolic blood pressure 73 mm[Hg] MD Fidel Abbott Work Phone: [facility] 06-02-2022 09:52-0500 Heart rate 76 /min MD Fidel Abbott Work Phone: [facility] 06-02-2022 09:52-0500 Systolic blood pressure 155 mm[Hg] MD Fidel Abbott Work Phone: [facility] 03-03-2022 12:06-0500 Body height 180.34 cm MD Fidel Abbott Work Phone: [facility] 03-03-2022 12:06-0500 Body mass index (BMI) [Ratio] 34.8 kg/m2 MD Fidel Abbott Work Phone: [facility] 03-03-2022 12:06-0500 Body weight 113.39 kg MD Fidel Abbott Work Phone: [facility] 03-03-2022 11:37-0500 Body temperature 97.7 [degF] MD Fidel Abbott Work Phone: [facility] 03-03-2022 11:37-0500 Diastolic blood pressure 56 mm[Hg] MD Fidel Abbott Work Phone: [facility] 03-03-2022 11:37-0500 Heart rate 68 /min MD Fidel Abbott Work Phone: [facility] 03-03-2022 11:37-0500 Respiratory rate 18 /min MD Fidel Abbott Work Phone: [facility] 03-03-2022 11:37-0500 Systolic blood pressure 122 mm[Hg] MD Fidel Abbott Work Phone: [facility] Encounters Encounter Date Encounter Type Care Provider Facility Start: 01-15-2025 ambulatory Jovanny Acuna ty:[facility] Start: 11-22-2024 End: 11-22-2024 Refjackie Abbott MD Work Phone: [facility] Comment on above: Primary hypertension ; Benign hypertension ; Type 2 diabetes mellitus with hyperglycemia, without long-term current use of insulin (HCC); Dyslipidemia Start: 11-01-2024 End: 11-02-2024 Refjackie Abbott MD Work Phone: [facility] Comment on above: Type 2 diabetes ez itus with hyperglycemia, without long-term current use of insulin (HCC) Start: 10-10-2024 ambulatory Fidel Abbott Facility:[facility] Start: 10-02-2024 End: 10-03-2024 External Result Encounter Cathy Brar MD Work Phone: [facility] External Department Unsolicited Start: 10-02-2024 End: 10-03-2024 External Result Encounter Cathy Edwards MD Work Phone: [facility] External Department Unsolicited Start: 10-02-2024 End: 10-02-2024 Admission to same day surgery center Cathy Brar MD [facility] [place] Start: 10-02-2024 End: 10-02-2024 ambulatory Fidel Abbott MD Work Phone: [facility] Work Phone: Start: 09-26-2024 End: 09-26-2024 Clinisync [...] Fidel Abbott MD Work Phone: [facility] Work Phone: Start: 08-30-2024 End: 08-30-2024 ambulatory Fidel Abbott MD Work Phone: [facility] Work Phone: Start: 08-15-2024 Registered Recurring Fidel dubose MD Work Phone: [facility] [place] Work Phone: Start: 08-10-2024 End: 08-10-2024 Clinisync Result Encounter Generic External Data Provider [facility] External Department Unsolicited Start: 08-10-2024 End: 08-10-2024 Clinisync Result Encounter Generic External Data Provider [facility] External Department Unsolicited Start: 07-31-2024 End: 07-31-2024 Bamboo flowsheet Fidel Abbott MD Work Phone: [facility] Start: 07-31-2024 End: 07-31-2024 Bamboo flowsheet Fidel Abbott MD Work Phone: [facility] Start: 07-31-2024 End: 07-31-2024 Office outpatient visit 25 minutes Fidel Abbott MD Work Phone: [facility] Comment on above: Type 2 diabetes ez itus with hyperglycemia, without long-term current use of insulin (CMS/[facility]) (Primary Dx); Benign hypertension (CMS/HCC); Major depressive disorder, recurrent episode, mild (HCC) (CMS/HCC); Incontinence overflow, urine; Chronic superficial 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; Urticaria; Pruritus; Annual physical exam; Chronic kidney disease, stage 3a (HCC) (CMS/HCC); Class 2 severe obesity due to excess calories with serious comorbidity and body mass index (BMI) of 36.0 to 36.9 in adult (CMS/HCC); Type 2 diabetes mellitus with other specified complication; Hyperlipidemia, unspecified (CMS/HCC); Pressure ulcer of right heel, unstageable (CMS/HCC); Type 2 diabetes mellitus with other skin ulcer (CODE); Paraplegia, unspecified; Diabetes mellitus due to underlying condition with diabetic polyneuropathy (CMS/HCC) Start: 07-31-2024 End: 07-31-2024 Patient encounter procedure Fidel Abbott MD Work Phone: [facility] Start: 07-31-2024 End: 07-31-2024 ambulatory FIDEL ABBOTT Not Available Start: 05-30-2024 End: 05-30-2024 Clinisync Result Encounter Generic External Data Provider [facility] External Department Unsolicited Start: 05-30-2024 End: 05-30-2024 Clinisync Result Encounter Generic External Data Provider [facility] External Department Unsolicited Start: 05-02-2024 ambulatory JEROD Carter acility:[facility] Start: 04-17-2024 End: 04-17-2024 Telephone encounter Scanning Provider External [facility] Start: 04-14-2024 End: 04-14-2024 Telephone encounter Mary Conner [facility] Start: 04-06-2024 End: 04-06-2024 Telephone encounter Mary Conner [facility] Start: 03-14-2024 End: 03-14-2024 ambulatory Fidel Abbott MD Work Phone: [facility] Work Phone: Start: 03-14-2024 End: 03-14-2024 Discharged Recurring Fidel Abbott MD Work Phone: [facility] [place] Work Phone: Start: 03-13-2024 End: 03-13-2024 Refill Fidel Abbott MD Work Phone: [facility] Comment on above: Pruritus Start: 03-10-2024 Non-patient / Non-visit Fidel campbell MD Work Phone: [facility] Work Phone: Start: 03-10-2024 [...] Registered Recurring Fidel dubose MD Work Phone: [facility] [place] Work Phone: Start: 02-08-2024 End: 02-08-2024 Patient encounter procedure Fidel Abbott MD Work Phone: [facility] [place] Work Phone: Start: 02-08-2024 End: 02-08-2024 ambulatory Fidel Abbott MD Work Phone: [facility] Work Phone: Start: 01-20-2024 End: 01-20-2024 Bamboo [...] Orders Only Iraj Valdivia MD Work Phone: [facility] Comment on above: Stage 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 (CMS-HCC) (Primary Dx) Start: 01-12-2024 End: 01-12-2024 Telephone encounter Scanning Provider External [facility] Start: 12-02-2023 End: 12-02-2023 Clinisync Result Encounter [...] encounter procedure Jovanny VILLA [facility] Start: 10-11-2023 End: 10-11-2023 ambulatory [facility] Start: 07-08-2023 End: 07-08-2023 ambulatory MD Fidel Abbott Work Phone: [facility] Work Phone: Start: 07-08-2023 End: 07-08-2023 Departed Referred MD Fidel Abbott Work Phone: [facility]-LAB [facility] Start: 06-04-2023 End: 06-04-2023 Admission to same day surgery center MD Fidel Abbott Work Phone: [facility]-Surgery Center Main [place] Start: 05-13-2023 Telephone encounter Sandhya Grijalva [facility] [...] underlying condition with diabetic polyneuropathy, unspecified whether director long term care insulin use (CMS/HCC); Acute complete paraplegia (CMS/HCC); Acute osteomyelitis of left fibula (CMS/HCC); Foot ulcer, right, with fat layer exposed (CMS/HCC); Venous insufficiency Start: 05-04-2023 End: 05-04-2023 ambulatory MD Fidel Abbott Work Phone: [facility] Work Phone: Start: 05-04-2023 End: 05-04-2023 Discharged Recurring MD Fidel Abbott Work Phone: [facility] Work Phone: Start: 11-09-2022 End: 11-09-2022 Patient encounter procedure Jovanny VILLA [facility] Start: 09-25-2022 End: 09-26-2022 ambulatory FIDEL ABBOTT [facility] Start: 09-18-2022 End: 09-21-2022 ambulatory ASHLEE [facility]aina ER[facility] Start: 09-18-2022 End: 09-20-2022 Subsequent hospital visit by physician Francisca Ultrasound Room 2 At [facility] Ultrasound Comment on above: Cauda equina syndrom e (HCC); Neurogenic bladder; Urinary retention; Urinary incontinence without sensory awareness Start: 2022 End: 2022 ambulatory ANGELES NAGY [facility] Start: 07-02-2022 End: 07-03-2022 ambulatory SHELLY Tellez [facility] Start: 07-02-2022 End: 07-02-2022 Subsequent hospital visit by physician Fidel Abbott MD Work Phone: [facility] Laboratory Comment on above: Acute kidney injury (HCC); Iron deficiency anemia, unspecified iron deficiency anemia type Start: 06-22-2022 End: 06-26-2022 Evaluation and management of inpatient [facility] Start: 06-22-2022 End: 06-26-2022 Evaluation and management of inpatient Eli Pimentel MD Work Phone[facility] Comment on above: Acute kidney injury (HCC) (Primary Dx); Hyperkalemia; Iron deficiency anemia, unspecified iron deficiency anemia type Start: 06-22-2022 End: 06-22-2022 ambulatory ANGELES Zhu [facility] Start: 06-22-2022 End: 06-22-2022 Subsequent hospital visit by physician Fidel Abbott MD Work Phone: [facility] EKG Comment on above: Neurogenic bladder Start: 06-02-2022 End: 06-02-2022 ambulatory MD Fidel Abbott Work Phone: [facility] Work Phone: Start: 06-02-2022 End: 06-02-2022 Discharged Recurring MD Fidel Abbott Work Phone: [facility] Work Phone: Start: 03-14-2022 End: 03-15-[address] CATHY BRAR Facility:H1 Start: 03-03-2022 End: 03-03-2022 ambulatory MD Fidel Abbott Work Phone: [facility] Work Phone: Start: 03-03-2022 End: 03-03-2022 Discharged Recurring MD Fidel Abbott Work Phone: [facility] Work Phone: Start: 02-26-2022 End: 02-27-[address] CATHY BRAR Facility:[facility]1 Start: 05-30-2021 End: 05-31-[address] FIDEL ABBOTT Facility:[facility]1 Start: 04-09-2017 End: 04-13-2017 Evaluation and management of inpatient MICHAELA Zhu [facility] Procedures Date Procedure Procedure Detail [...] retroperitoneal real time w/image complete Ashlee Erwin ELEMENTARY SPECIAL EDUCATION TEACHER - IT INVESTMENT/PORTFOLIO MANAGER Work Phone: Start: 2022 Optical urethrotomy Jovanny VILLA Start: 07-02-2022 Basic metabolic panel calcium total Hoda jose A Andrew-Tripp ELEMENTARY SPECIAL EDUCATION TEACHER - IT INVESTMENT/PORTFOLIO MANAGER Work Phone: Start: 06-26-2022 End: 06-26-2022 COLONOSCOPY POLYPECTOMY SNARE/COLD BIOPSY Katerina Atkins MD Work Phone: Start: 06-26-2022 End: 06-26-2022 Esophagoscopy intra/transmural needle aspirat/bx Katerina Atkins MD Work Phone: Start: 06-26-2022 End: 06-26-2022 Colonoscopy Katerina Atkins MD Work Phone: Start: 06-26-2022 Esophagogastroduodenoscopy Katerina Cuadar i, MD Work Phone: Start: 06-26-2022 GLUCOSE, WHOLE BLOOD Matias Garcia MD Work Phone: Start: 06-26-2022 Blood count complete auto&auto difrntl wbc Katerina Atkins MD Work Phone: Start: 06-26-2022 Rhythm ecg 1-3 leads w/interpretation & report Unknown Provider Result Start: 06-25-2022 Blood occult peroxidase actv qual feces 1 deter Shelly Mondragon ELEMENTARY SPECIAL EDUCATION TEACHER - IT INVESTMENT/PORTFOLIO MANAGER Work Phone: Start: 06-25-2022 Cul bact xcpt [...] of packed red blood cells Shelly Mondragon ELEMENTARY SPECIAL EDUCATION TEACHER - IT INVESTMENT/PORTFOLIO MANAGER Work Phone: Start: 06-24-2022 Echo tthrc r-t 2d w/wom-mode compl spec&colr d Shelly Mondragon ELEMENTARY SPECIAL EDUCATION TEACHER - IT INVESTMENT/PORTFOLIO MANAGER Work Phone: Start: 06-24-2022 Blood typing serologic abo Shelly Mondragon ELEMENTARY SPECIAL EDUCATION TEACHER - IT INVESTMENT/PORTFOLIO MANAGER Work Phone: Start: 06-24-2022 GLUCOSE, WHOLE BLOOD Matias Garcia MD Work Phone: Start: 06-24-2022 End: 06-24-2022 Prothrombin time Shelly Mondragon ELEMENTARY SPECIAL EDUCATION TEACHER - IT INVESTMENT/PORTFOLIO MANAGER Work Phone: Start: 06-24-2022 VITAMIN B12 & FOLATE Shelly Mondragon ELEMENTARY SPECIAL EDUCATION TEACHER - IT INVESTMENT/PORTFOLIO MANAGER Work Phone: Start: 06-24-2022 End: 06-25-2022 Rhythm [...] ankle complete minimum 3 views Shelly Mondragon ELEMENTARY SPECIAL EDUCATION TEACHER [employer] Work Phone: Start: 06-23-2022 Lipid panel Zoila [...] 06-26-2032 Screening for malignant neoplasm of colon [facility] Start: 02-01-2025 End: 02-01-2025 Patient encounter procedure 02/01/2025 10:30 AM EST Office Visit [facility] [address] [place] [address] Fidel Abbott MD [address] [place] [address] [facility] Start: 11-27-2024 Influenza vaccination [facility] Start: 10-10-2024 Adult BMI Screening Adult BMI Screening [facility] Start: 10-10-2024 Tobacco Screening Tobacco Screening [facility] Start: 10-02-2024 Aerobic Culture Aerobic Culture [facility] Start: 10-02-2024 Anaerobic Culture Anaerobic Culture [facility] Start: 10-02-2024 Microscopic observation [Identifier] in Unspecified specimen by Gram stain [facility] Start: 10-02-2024 End: 10-02-2024 [facility] Start: 08-30-2024 Ankle brachial pressure index [facility] Start: 07-31-2024 End: 07-31-2025 Basic metabolic 1998 panel - Serum or Plasma Basic metabolic panel Lab Routine Annual physical exam Expected: 07/31/2024 (Approximate), Expires: 07/31/2025 [facility] Comment on above: Expected: 07/31/2024 (Approximate), Expi res: 07/31/2025 Start: 07-31-2024 End: 07-31-2025 CBC W Auto Differential panel - Blood CBC and differential Lab Routine Annual physical exam Expected: 07/31/2024 (Approximate), Expires: 07/31/2025 [facility] Comment on above: Expected: 07/31/2024 (Approximate), Expi res: 07/31/2025 Start: 07-31-2024 End: 07-31-2025 Hemoglobin A1c/Hemoglobin.total in Blood Hemoglobin A1c Lab Routine Annual physical exam Expected: 07/31/2024 (Approximate), Expires: 07/31/2025 [facility] Comment on above: Expected: 07/31/2024 (Approximate), Expi res: 07/31/2025 Start: 07-31-2024 End: 07-31-2025 Hepatic function 2000 panel - Serum or Plasma Hepatic function panel Lab Routine Annual physical exam Expected: 07/31/2024 (Approximate), Expires: 07/31/2025 [facility] Comment on above: Expected: 07/31/2024 (Approximate), Expi res: 07/31/2025 Start: 07-31-2024 End: 07-31-2025 Lipid 1996 panel - Serum or Plasma Lipid panel Lab Routine Annual physical exam Expected: 07/31/2024 (Approximate), Expires: 07/31/2025 [facility] Comment on above: Expected: 07/31/2024 (Approximate), Expi res: 07/31/2025 Start: 07-31-2024 End: 07-31-2025 Microalbumin/Creatinine panel in random Urine Microalbumin / creatinine, urine ratio Lab Routine Type 2 diabetes mellitus with hyperglycemia, without long-term current use of insulin ([facility]) Expected: 07/31/2024 (Approximate), Expires: 07/31/2025 [facility] Work Phone: Comment on above: Expected: 07/31/2024 (Approximate), Expi res: 07/31/2025 Start: 07-31-2024 End: 07-31-2025 Prostate specific Ag [Mass/volume] in Serum or Plasma PSA Lab Routine Annual physical exam Expected: 07/31/2024 (Approximate), Expires: 07/31/2025 [facility] Comment on above: Expected: 07/31/2024 (Approximate), Expi res: 07/31/2025 Start: 07-31-2024 End: 07-31-2025 Thyrotropin [Units/volume] in Serum or Plasma TSH Lab Routine Annual physical exam Expected: 07/31/2024 (Approximate), Expires: 07/31/2025 [facility] Comment on above: Expected: 07/31/2024 (Approximate), Expi res: 07/31/2025 Start: 07-31-2024 End: 07-31-2024 Patient encounter procedure 07/31/2024 10:45 AM EDT [facility] [address] [place] [address] Fidel Abbott MD [address] [place] [phone] Arrived [facility] Comment on above: Arrived Start: 05-22-2024 End: 05-22-2024 Patient encounter procedure 05/22/2024 1:15 PM EST [facility] [address] [place] [phone] Fidel Abbott MD [address] [place] [phone] [facility] Start: 04-20-2024 End: 04-20-2024 Patient encounter procedure 04/20/2024 1:30 PM EST Office Visit [facility] [address] [place] [phone] Iraj Valdivia MD [address] [place], [place] [phone] [facility] Start: 04-13-2024 End: 04-13-2024 Patient encounter procedure 04/13/2024 2:00 PM EST Office Visit [facility] [address] [place] [phone] Iraj Valdivia MD [address] [place], [place] [phone] [facility] Start: 01-20-2024 End: 01-20-2024 Patient encounter procedure 01/20/2024 11:45 AM EDT Office Visit [facility] [address] [place] [phone] Fidel Abbott MD [address] [place] [phone] Arrived [facility] Comment on above: Arrived Start: 11-28-2023 Influenza vaccination [facility] Start: 11-18-2023 End: 11-17-2024 Albumin, urine, random Albumin, urine, random Lab Routine Type 2 diabetes mellitus with hyperglycemia, without long-term current use of insulin ([facility]) Expected: 11/18/2023 (Approximate), Expires: 11/17/2024 [facility] Work Phone: Comment on above: Expected: 11/18/2023 (Approximate), Expi res: 11/17/2024 Start: 11-18-2023 End: 11-17-2024 Basic metabolic 1998 panel - Serum or Plasma Basic metabolic panel Lab Routine Encounter for long-term (current) use of medications Expected: 11/18/2023 (Approximate), Expires: 11/17/2024 [facility] Comment on above: Expected: 11/18/2023 (Approximate), Expi res: 11/17/2024 Start: 11-18-2023 End: 11-17-2024 CBC W Auto Differential panel - Blood CBC and differential Lab Routine Encounter for long-term (current) use of medications Expected: 11/18/2023 (Approximate), Expires: 11/17/2024 [facility] Comment on above: Expected: 11/18/2023 (Approximate), Expi res: 11/17/2024 Start: 11-18-2023 End: 11-17-2024 Hemoglobin A1c/Hemoglobin.total in Blood Hemoglobin A1c Lab Routine Type 2 diabetes mellitus with hyperglycemia, without long-term current use of insulin ([facility]) Expected: 11/18/2023 (Approximate), Expires: 11/17/2024 [facility] Comment on above: Expected: 11/18/2023 (Approximate), Expi res: 11/17/2024 Start: 11-18-2023 End: 11-17-2024 Hepatic function 2000 panel - Serum or Plasma Hepatic function panel Lab Routine Encounter for long-term (current) use of medications Expected: 11/18/2023 (Approximate), Expires: 11/17/2024 [facility] Comment on above: Expected: 11/18/2023 (Approximate), Expi res: 11/17/2024 Start: 11-18-2023 End: 11-17-2024 Lipid 1996 panel - Serum or Plasma Lipid panel Lab Routine Type 2 diabetes mellitus with hyperglycemia, without long-term current use of insulin ([facility]) Expected: 11/18/2023 (Approximate), Expires: 11/17/2024 [facility] Comment on above: Expected: 11/18/2023 (Approximate), Expi res: 11/17/2024 Start: 10-18-2023 End: 10-18-2023 Patient encounter procedure 10/18/2023 10:00 AM EDT Office Visit [facility] [address] [place] [address] Fidel Abbott MD [address] [place] [address] [facility] Start: 09-19-2023 GFR test (Diabetes, CKD 3-4, OR last GFR 15-59) GFR test (Diabetes, CKD 3-4, OR last GFR 15-59) [facility] Start: 09-19-2023 Urine screening for protein Diabetes: Urine Protein Screening [facility] Start: 07-08-2023 Hemoglobin A1c measurement A1C test (Diabetic or Prediabetic) [facility] Start: 07-03-2023 GFR test (Diabetes, CKD 3-4, OR last GFR 15-59) GFR test (Diabetes, CKD 3-4, OR last GFR 15-59) [facility] Start: 06-27-2023 Screening for malignant neoplasm of colon [facility] Start: 06-26-2023 GFR test (Diabetes, CKD 3-4, OR last GFR 15-59) GFR test (Diabetes, CKD 3-4, OR last GFR 15-59) [facility] Start: 06-26-2023 Screening for malignant neoplasm of colon [facility] Start: 06-24-2023 Lipid panel Lipids [facility] Start: 06-23-2023 GFR test (Diabetes, CKD 3-4, OR last GFR 15-59) GFR test (Diabetes, CKD 3-4, OR last GFR 15-59) [facility] Start: 06-04-2023 [facility] Start: 05-20-2023 End: 05-20-2023 Patient encounter procedure 05/20/2023 3:10 PM EST Office Visit [facility] [address] [facility] [address] [place] [address] Jonathan Bah DPM [address] [address] [facility] Start: 05-06-2023 End: 05-06-2023 Patient encounter procedure 05/06/2023 10:20 AM EST Office Visit [facility] [address] [facility] [address] [place] [address] Jonathan Bah DPM [address] [address] [facility] Start: 10-27-2022 Influenza vaccination Flu vaccine (Season Ended) [facility] Start: 10-06-2022 Hemoglobin A1c measurement Diabetes: Hemoglobin A1C [facility] Start: 09-25-2022 End: 09-25-2022 Patient encounter procedure 09/25/2022 [facility] Start: 07-08-2022 End: 07-08-2022 Patient encounter procedure 07/08/2022 Office Visit [facility] Start: 2022 End: 2022 Admission to same day surgery center 2022 Surgery IP Unit Angeles Nagy MD [address] [place] [address], [address] [place] [address] CYSTOSCOPY TRANSURETHROTOMY- DVIU WITH POSS TRANSURETHRAL RESECTION OF BLADDER TUMOR [facility] Comment on above: CYSTOSCOPY TRANSURETHROTOMY- DVIU WITH P OSS TRANSURETHRAL RESECTION OF BLADDER TUMOR Start: 2022 End: 2022 Cystourethroscopy w/internal urethrotomy male CYSTOSCOPY TRANSURETHROTOMY Cauda equina syndrome (HCC) 2022 8:30 AM EDT [facility] Start: 2022 Subsequent hospital visit by physician 2022 Hospital Encounter IP Unit Angeles Nagy MD [address] [place] [address], [address] [place] [address] [facility] Start: 07-01-2022 End: 06-27-2023 Basic metabolic 2000 panel - Serum or Plasma Basic Metabolic Panel Lab Routine Acute kidney injury (HCC) Expected: 07/01/2022, Expires: 06/27/2023 [employer] Phone: Comment on above: Expected: 07/01/2022, Expires: Start: 07-01-2022 End: 06-27-2023 CBC W Auto Differential panel - Blood CBC with Auto Differential Lab Routine Acute kidney injury (HCC) Iron deficiency anemia, unspecified iron deficiency anemia type Expected: 07/01/2022, Expires: 06/27/2023 [facility] Work Phone: Comment on above: Expected: 07/01/2022, Expires: Start: 06-22-2022 Annual Wellness Visit (AWV) Annual Wellness Visit (AWV) [facility] Start: 10-27-2021 Influenza vaccination Flu vaccine (#1) [facility] Start: 04-09-2018 Diabetic foot examination Diabetic foot exam [facility] Start: 04-09-2018 Hemoglobin A1c measurement A1C test (Diabetic or Prediabetic) [facility] Start: 04-25-2016 Lipid panel Lipids [facility] Start: 04-24-2016 Urine screening for protein [facility] Start: 07-08-2011 Administration of varicella zoster vaccine Zoster (Shingles) Vaccine (1 of 2) [facility] Start: 07-08-2011 Shingles vaccine (1 of 2) Shingles vaccine (1 of 2) [facility] Start: 2006 Screening for malignant neoplasm of colon [facility] Start: 1980 DTaP,Tdap and Td Vaccines (1 - Tdap) DTaP,Tdap and Td Vaccines (1 - Tdap) [facility] Start: 1980 DTaP/Tdap/Td vaccine (1 - Tdap) DTaP/Tdap/Td vaccine (1 - Tdap) [facility] Start: 1980 Urine screening for protein Diabetes: Urine Protein Screening [facility] Start: 07-08-1979 Adult BMI Follow Up Plan Adult BMI Follow Up Plan [facility] Start: 07-08-1979 Glaucoma screening Diabetic retinal exam [facility] Start: 07-08-1979 Hepatitis C screening Hepatitis C screen [facility] Start: 1976 HIV screening HIV screen [facility] Start: 1973 Depression Monitoring Depression Monitoring [facility] Start: 1973 Depression Screening Depression Screening [facility] Start: 07-08-1971 Glaucoma screening Diabetes: Retinopathy Screening [facility] Start: 07-08-1967 Pneumococcal 0-64 years Vaccine (1 - PCV) Pneumococcal 0-64 years Vaccine (1 - PCV) [facility] Start: 01-06-1962 COVID-19 Vaccine (#1) COVID-19 Vaccine (#1) [facility] [employer] Start: 1961 Screening for malignant neoplasm of colon [facility] AEROBIC CULTURE AEROBIC CULTURE Lab Routine 10/02/2024 12:38 PM EDT [facility] Work Phone: ANAEROBIC CULTURE ANAEROBIC CULT URE Lab Routine 10/02/2024 12:38 PM EDT [facility] Bacteria identified in Unspecified specimen by Aerobe culture [facility] Bacteria identified in Unspecified specimen by Anaerobe culture [facility] End: 01-16-2025 Basic metabolic 2000 panel - Serum or Plasma Basic Metabolic Panel Lab Routine Stage 3a chronic kidney disease ([facility] 1 Occurrences starting 01/17/2024 until 01/16/2025 [facility] Work Phone: Comment on above: 1 Occurrences starting 01/17/2024 until 01/16/2025 End: 01-16-2025 CBC panel - Blood by Automated count CBC without diff Lab Routine Stage 3a chronic kidney disease ([facility]) 1 Occurrences starting 01/17/2024 until 01/16/2025 [facility] Comment on above: 1 Occurrences starting 01/17/2024 until 01/16/2025 End: 06-27-2022 CBC W Auto Differential panel - Blood CBC auto differential Lab Routine Daily for 5 Days starting 06/23/2022 until 06/27/2022, 4 completed [employer] [facility] Work Phone: Comment on above: Daily for 5 Days starting 06/23/2022 unt il 06/27/2022, 4 completed Culture, Wound Aerob ic Only Culture, Wound Aerobic Only Microbiology [employer] Label Print 06/25/2022 12:20 PM EDT [facility] Work Phone: End: 06-25-2022 Hemoglobin and Hematocrit Hemoglobin and Hematocrit Lab Routine Post Transfusion Post Transfusion Post Transfustion until discontinued starting 06/24/2022, 1 completed [facility] Work Phone: Comment on above: Post Transfusion Post Transfusion Post T ransfustion until discontinued starting 06/24/2022, 1 completed End: 01-16-2025 Magnesium [Mass/volume] in Serum or Plasma Magnesium Lab Routine Stage 3a chronic kidney disease ([facility]) 1 Occurrences starting 01/17/2024 until 01/16/2025 [employer] Comment on above: 1 Occurrences starting 01/17/2024 until 01/16/2025 Oxygen therapy [[facility] Data Set] Initiate Oxygen Therapy Protocol Respiratory Care Routine Daily until discontinued starting 06/22/2022 [facility] Work Phone: Comment on above: Daily until discontinued starting 2022 End: 01-16-2025 Parathyroid Hormone, intact Parathyroid Hormone, intact Lab Routine Stage 3a chronic kidney disease ([facility]) 1 Occurrences starting 01/17/2024 until 01/16/2025 [employer] Comment on above: 1 Occurrences starting 01/17/2024 until 01/16/2025 Patient Education Know your Meds [facility] Work Phone: Patient referral [facility] Work Phone: End: 01-16-2025 Phosphate [Mass/volume] in Serum or Plasma Phosphorus Lab Routine Stage 3a chronic kidney disease [facility] 1 Occurrences starting 01/17/2024 until 01/16/2025 [employer] Comment on above: 1 Occurrences starting 01/17/2024 until 01/16/2025 End: 06-24-2022 PREPARE RBC (CROSSMATCH), 1 Units PREPARE RBC (CROSSMATCH), 1 Units Blood Bank Routine Once for 1 Occurrences starting 06/24/2022 until 06/24/2022 [facility] Work Phone: Comment on above: Once for 1 Occurrences starting 06/25/19 until 06/24/2022 End: 01-16-2025 Protein creat ratio Protein creat ratio Lab Routine Stage 3a chronic kidney disease ([facility]) 1 Occurrences starting 01/17/2024 until 01/16/2025 [employer] Comment on above: 1 Occurrences starting 01/17/2024 until 01/16/2025 End: 06-25-2022 Surgical Pathology Surgical Pathology Lab Routine One Time for 1 Occurrences starting 06/25/2022 until 06/25/2022 [employer] Phone: Comment on above: One Time for 1 Occurrences starting 05/29 until 06/25/2022 Surgical Pathology Surgical Path ology Lab Routine Hyperkalemia Release Upon Ordering for 1 Occurrences starting 06/26/2022 [employer] Phone: Comment on above: Release Upon Ordering for 1 Occurrences starting 06/26/2022 End: 06-25-2022 SURGICAL PATHOLOGY REPORT SURGICAL PATHOLOGY REPORT Lab Routine Once for 1 Occurrences starting 06/25/2022 until 06/25/2022 [employer] Phone: Comment on above: Once for 1 Occurrences starting 06/26/19 until 06/25/2022 End: 06-26-2022 SURGICAL PATHOLOGY REPORT SURGICAL PATHOLOGY REPORT Lab Routine Once for 1 Occurrences starting 06/26/2022 until 06/26/2022 [employer] Phone: Comment on above: Once for 1 Occurrences starting 06/27/19 until 06/26/2022 End: 01-16-2025 Urinalysis Urinalysis Lab Routine Stage 3a chronic kidney disease ([facility]) 1 Occurrences starting 01/17/2024 until 01/16/2025 [employer] Comment on above: 1 Occurrences starting 01/17/2024 until 01/16/2025 End: 01-16-2025 Vitamin D 25 hydroxy Vitamin D 25 hydroxy Lab Routine Stage 3a chronic kidney disease ([facility]) 1 Occurrences starting 01/17/2024 until 01/16/2025 [employer] Comment on above: 1 Occurrences starting 01/17/2024 until 01/16/2025 Immunizations Immunization Date Immunization Notes Care Provider [facility] 02-11-2023 influenza, injectabl e, quadrivalent, preservative free MD Fidel Abbott Work Phone: [facility] 02-11-2023 influenza virus vaccine, unspecified formulation Fidel Abbott MD Work Phone: [facility] 04-10-2017 influenza virus vaccine, unspecified formulation Jovanny VILLA [facility] Comment on above: Result Comment: 2022: VIS DATE: 11/02/2014 04-10-2017 influenza, injectabl e, quadrivalent, preservative free Fidel Abbott MD Work Phone: [facility] 01-28-2016 Influenza Vaccine, unspecified formulation Fidel Abbott MD Work Phone: [facility] 01-01-2015 influenza virus vaccine, unspecified formulation Jovanny VILLA [facility] 01-01-2015 influenza, seasonal, injectable MD Fidel Abbott Work Phone: [facility] 01-10-2014 influenza virus vaccine, unspecified formulation Jovanny VILLA [facility] Payers Date Payer Category Payer Self-pay [id number] 2022 [facility] ANTHEM [id number] 2021 Blue Cross Blue [facility] [id number]. [id number] 2021 Unknown BCBS BCBS xxxxxx [id number] 2021-Present [phone] [id number] [place] [id number]. [id number] 2015 Unknown [id number] 2006 Medicare [id number] 1.13.693.2. [id number] 1961 Unknown [id number] 2.16.840.1.788651.3.579.2. 593 1961 Unknown [id number] 2.16.840.1.897367.3.579.2. 593 1961 Unknown [id number] 2.16.840.1.747984.3.579.2. 593 1961 Unknown [id number] 2.16.840.1.165278.3.579.2. 173 1961 Unknown [id number] 2.16.840.1.730566.3.579.2. 173 1961 Unknown [id number] 2.16.840.1.317154.3.579.2. 173 1961 Unknown [id number] 2.16.840.1.473519.3.579.2. 173 1961 Unknown [id number] 2.16.840.1.295129.3.579.2. 173 1961 Unknown [id number] 2.16.840.1.126667.3.579.2. 173 1961 Unknown [id number] 2.16.840.1.922868.3.579.2. 173 1961 Unknown [id number] 2.16.840.1.254566.3.579.2. 173 1961 Unknown [id number] 2.16.840.1.388372.3.579.2. 1286 1961 Unknown [id number] 2.16.840.1.140692.3.579.2. 1286 1961 Unknown [id number] 2.16.840.1.638123.3.579.2. 1259 1961 Unknown [id number] 2.16.840.1.239198.3.579.2. 1259 1961 Unknown [id number] 2.16.840.1.087034.3.579.2. 1259 1961 Unknown [id number] 2.16.840.1.330796.3.579.2. 727 1961 Unknown [id number] 2.16.840.1.262655.3.579.2. 727 1959 Medicare [id number] 1959 Unknown [id number] 1959 Unknown [id number] Unknown [id number] 2.16.840.1.415692.3.579.2. 531 Unknown [id number] 2.16.840.1.213582.3.579.2. 531 Unknown [id number] 2.16.840.1.366559.3.579.2. 531 Unknown [id number] 2.16.840.1.321749.3.579.2. 531 Unknown [id number] 2.16.840.1.794227.3.579.2. 531 Social History Date Type Detail Facility Start: 01-27-2022 End: 02-23-2023 Tobacco smoking status NHIS Never smoked tobacco (finding) [facility] Start: 1960 Sex Assigned At Male F [facility] [place] Start: 06-22-2022 End: 02-23-2023 Tobacco use and exposure Smokeless tobacco non-user [employer] Phone: Start: 06-22-2022 End: 07-14-2022 Alcohol intake Current non-drinker of alcohol (finding) [employer] Phone: Start: 1960 Sex Assigned At Not on file B ON [employer] Phone: Start: 06-12-2022 End: 06-22-2022 Exposure to SARS-CoV-2 (event) Not sure [employer] [employer] Start: 06-23-2022 History SDOH Alcohol Frequency 1 [employer] Phone: Start: 06-23-2022 History SDOH Alcohol Std Drinks 0 [employer] Phone: Tobacco smoking status Never [facility] Start: 04-29-2023 End: 10-17-2023 Sex Assigned At Male [facility] Start: 04-29-2023 End: 07-31-2024 Alcohol intake Lifetime non-drinker (finding) [facility] Start: 04-29-2023 End: 10-17-2023 History of Social function [facility] Start: 11-01-2014 End: 08-30-2024 Sex Male (finding) [facility] Do you belong to any clubs or organizations such as episcopalian groups, unions, fraternal or athletic groups, or [...] 06-04-2023 Wound debridement Collagen wound matrix dressing ()[id number] FDA Start: 06-04-2023 Wound debridement Collagen wound matrix dressing ()[id number] FDA Start: 06-04-2023 Wound debridement EPIFIX MESH [...] 06-04-2023 Amputation, toe Collagen wound matrix dressing ()[id number] FDA Start: 02-10-2023 Graft Subst Resorbable Mini 5cc [id number] Start: 12-25-2016 Comment on above: Description: tobramy icin recostituted with 10ml normal saline ref # [id number] exp 07/27/2018 lot # [id number] Goals Date Patient Goal Desired Activity /State Functional Status Date Assessment Result Facility 11-09-2022 Functional Status N/A [facility] Clinical Notes 07-29-2021 to 08-15-2024 Note [...] with complication acute August 30, 2024 11:16am [facility] Work Phone: 1(548) 691-530205-20-2025 Evaluation note* Diagnosis Onset Date Resolution Status Admit Date Diabetes mellitus due to underlying condition with diabetic neuropathy, wit acute July 10:28am Pressure injury of left isch ium, stage 4 acute August 15, 2024 1 0:28am Pressure injury of right ischium, stage 4 acute August 15, 2024 10:28am Stage IV pressure ulcer of sacral region acute August 15, 2024 1 0:28am 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 August 15, 2024 10:28am [facility] Work Phone: 1(754) 861-505405-20-2025 Evaluation note* Diagnosis Onset Date Resolution Status Admit Date Diabetes mellitus due to underlying condition with diabetic neuropathy, wit acute July 10:28am Pressure injury of left isch ium, stage 4 acute August 15, 2024 1 0:28am Pressure injury of right ischium, stage 4 acute August 15, 2024 10:28am Stage IV pressure ulcer of sacral region acute August 15, 2024 1 0:28am Cauda equina spinal cord injury [facility] August 15, 2024 10:28am Bilateral lower extremity edema acut e August 30, 2024 11:16am Open wound of both legs with complication acute August 30, 2024 1 1:16am Diabetes mellitus due to underlying condition with diabetic neuropathy, wit acute September 10:30am Pressure injury of left isch ium, stage 4 acute October 02, 2024 1 0:30am Cauda equina spinal cord injury [facility] mayra October 02, 2024 10:30am [facility] Work Phone: 1(616) 162-648105-05-2025 History of Present illness Narrative* Fidel Abbott MD - 07/31/2024 11:20 AM EDTAssociated Problem(s): Class 2 severe obesity due to excess calories with serious comorbidity and body mass index (BMI) of 36.0 to 36.9 in adult (CMS/HCC) Weight loss indicated. * Fidel Abbott MD [...] tolerable with medication and continue. * Fidel Abbtot MD - 07/31/2024 11:18 AM EDTAssociated Problem(s): Chronic superficial gastritis Symptoms controlled with medication and continue. * Fidel Abbott MD - 07/31/2024 11:18 AM EDTAssociated Problem(s): Benign hypertension ([facility]) BP controlled and monitor PRN. * Fidel [...] Lipid panel PSA TSH documented in this encounterSainte Genevieve County Memorial [id number] Miscellaneous Notes* Telephone Encounter - Fatemeh Cain - 04/17/2024 1:56 PM EST Pt called to reschedule new pt appt due to lack of transportation. I informed him that we have no availability in [place] until [facility] July schedule opens up. He stated he will call back the first weekof April to reschedule. [facility] Telephone encounter Note* Telephone Encounter - Fatemeh Cain - 04/17/2024 1:56 PM EST Pt called to reschedule new pt appt due to lack of transportation. I informed him that we have no availability in [place] until [facility] July schedule opens up. He stated he will call back the first weekof April to reschedule. [facility]01-17-2025 Miscellaneous Notes* Telephone Encounter - Mary Conner CMA - 04/14/2024 3:23 PM EST Left message for patient to call the office back to confirm upcoming appointment 04/20 at 1:[address] Valdivia in [place]. Also stated that patient needs to get labs done prior to upcoming appointment documented in this encounterAden[facility] System01-17-2025 Telephone encounter Note* Telephone Encounter - Mary Conner CMA - 04/14/2024 3:23 PM EST Left message for patient to call the office back to confirm upcoming appointment 04/20 at 1:[address] Valdivia in [place]. Also stated that patient needs to get labs done prior to upcoming appointment [facility]01-09-2025 Miscellaneous Notes* Telephone Encounter - Mary Conner CMA - 04/06/2024 2:38 PM EST Left message for patient to call the office back to confirm upcoming appointment 04/13 at 2:[address] Valdivia in [place]. Also stated that patient needs to get labs done prior to upcoming appointment documented in this encounterAden[facility] System01-09-2025 Telephone encounter Note* Telephone Encounter - Mary Conner CMA - 04/06/2024 2:38 PM EST Left message for patient to call the office back to confirm upcoming appointment 04/13 at 2:[address] Valdivia in [place]. Also stated that patient needs to get labs done prior to upcoming appointment [facility] Progress note Author Cathy Brar [facility] Note Date/Time March 14, 2024 11:23am [facility] [address] [place] [address] Wound Center Provider Note Signed Patient: Ganga Stinson MR#: [id number] : 1960 Acct:[id number] Age/Sex: 63 / M Copies to: MD [...] 10 plus years Mode of Arrival/ Manager Solar: Personal vehicle and Family Assistive Device Used [...] Itching Wound/Ulcer Sacrum: Bed Appearance: Beefy Red, Ringoes, Rolled Edges and Yellow Percent of Wound [...] Ischium: Bed Appearance: Beefy Red, Bone Palpable, Ringoes and Yellow Percent of Wound Bed Granulated/Red: [...] Ischium: Bed Appearance: Beefy Red, Bone Palpable, Ringoes, Rolled Edges and Yellow Percent of Wound Bed Granulated/Red: 90 Percent of Devitalized: 10 Length (cm): 0.5 Width (cm): 0.5 Depth (cm): 2.5 CM Sq: 0.250 Tunneling Position: 10:00 Tunneling Depth: 4 Surrounding Tissue Appearance: Ringoes and Macerated Surrounding Tissue Temp: Warm Drainage [...] underlying condition with diabetic neuropathy,unspecified; Z79.4 - meterman (current) use of insulin Plan Continue with [...] signed by MD Cathy Brar> 03/14/24 1123 [facility] Work Phone: 1(659) 900-601412-17-2024 Evaluation note* Diagnosis Onset Date Resolution Status Admit Date Diabetes mellitus due to underlying condition with diabetic neuropathy, wit acute Decembe r 2023 10:42am Pressure injury of left ischium, stage 4 acute March 14, 2024 10:42am Pressure injury of right ischium, stage 4 acute March 14, 2024 10:42am Stage IV pressure ulcer of sacral region acute March 14, 024 10:42am Cauda equina spinal cord injury chronic March 14, 2 024 10:42am [facility] Work Phone: 1(206) 721-393512-17-2024 [place] [address] Wound Center Provider Note Signed Patient: Ganga Stinson MR#: [id number] : 1960 Acct:[id number] Age/Sex: 63 / M Copies to: MD [...] 10 plus years Mode of Arrival/ Manager Solar: Personal vehicle and Family Assistive Device Used [...] Itching Wound/Ulcer Sacrum: Bed Appearance: Beefy Red, Ringoes, Rolled Edges and Yellow Percent of Wound [...] Ischium: Bed Appearance: Beefy Red, Bone Palpable, Ringoes and Yellow Percent of Wound Bed Granulated/Red: [...] Ischium: Bed Appearance: Beefy Red, Bone Palpable, Ringoes, Rolled Edges and Yellow Percent of Wound Bed Granulated/Red: 90 Percent of Devitalized: 10 Length (cm): 0.5 Width (cm): 0.5 Depth (cm): 2.5 CM Sq: 0.250 Tunneling Position: 10:00 Tunneling Depth: 4 Surrounding Tissue Appearance: Ringoes and Macerated Surrounding Tissue Temp: Warm Drainage [...] underlying condition with diabetic neuropathy,unspecified; Z79.4 - meterman (current) use of insulin Plan Continue with [...] Orders: Dictated By: Cathy Brar MD DD/ 20 Signed By: 03/14/24 1123 [facility]11-12-2024 Progress note Author Cathy Brar [facility] Note Date/Time February 08, 2024 11:44am [facility] [address] [place] [address] Wound Center Provider Note Signed Patient: Ganga Stinson MR#: [id number] : 1960 Acct:[id number] Age/Sex: 63 / M Copies to: MD [...] 10 plus years Mode of Arrival/ Manager Solar: Personal vehicle and Family Assistive Device Used [...] Itching Wound/Ulcer Sacrum: Bed Appearance: Beefy Red, Ringoes, Rolled Edges and Yellow Percent of Wound [...] Jelly Right Ischium: Bed Appearance: Beefy Red, Ringoes and Yellow Percent of Wound Bed Granulated/Red: 90 Percent of Devitalized: 10 Length (cm): 6.6 Width (cm): 7.4 Depth (cm): 4.0 CM Sq: 48.840 Undermining Position: 8-11 Undermining Depth: 3.5 Tunneling Position: 00:00 Tunneling Depth: 0 Surrounding Tissue Appearance: Rolled Edges and Rash/Irritation Surrounding Tissue Temp: Warm Drainage Amount: Large Drainage Description: Serosanguineous Drainage Odor: No Odor Left Ischium: Bed Appearance: Beefy Red, Ringoes, Rolled Edges and Yellow Percent of Wound [...] underlying condition with diabetic neuropathy,unspecified; Z79.4 - meterman (current) use of insulin Plan Continue with current dressing changes and pressure relief. Podiatry following the patient's foot ulcers. Follow-up in 1 month See Instructions for Orders See Instructions for Orders See Wound Discharge Instructions for Orders: Dictated By: Cathy Brar MD DD/ 1141 Signed By: <Electronically signed by MD Cathy Brar> 02/08/24 1144 [facility] Work Phone: 1(903) 227-438011-12-2024 Evaluation note* Diagnosis Onset Date Resolution Status [...] spinal cord injury chronic February 07 10:48am [facility] Work Phone: 1(606) 685-349611-12-2024 [place] [address] Wound Center Provider Note Signed Patient: aGnga Stinson MR#: [id number] : 1960 Acct:[id number] Age/Sex: 63 / M Copies to: MD [...] 10 plus years Mode of Arrival/ Manager Solar: Personal vehicle and Family Assistive Device Used [...] Itching Wound/Ulcer Sacrum: Bed Appearance: Beefy Red, Ringoes, Rolled Edges and Yellow Percent of Wound [...] Jelly Right Ischium: Bed Appearance: Beefy Red, Ringoes and Yellow Percent of Wound Bed Granulated/Red: 90 Percent of Devitalized: 10 Length (cm): 6.6 Width (cm): 7.4 Depth (cm): 4.0 CM Sq: 48.840 Undermining Position: 8-11 Undermining Depth: 3.5 Tunneling Position: 00:00 Tunneling Depth: 0 Surrounding Tissue Appearance: Rolled Edges and Rash/Irritation Surrounding Tissue Temp: Warm Drainage Amount: Large Drainage Description: Serosanguineous Drainage Odor: No Odor Left Ischium: Bed Appearance: Beefy Red, Ringoes, Rolled Edges and Yellow Percent of Wound [...] underlying condition with diabetic neuropathy,unspecified; Z79.4 - meterman (current) use of insulin Plan Continue with current dressing changes and pressure relief. Podiatry following the patient's foot ulcers. Follow-up in 1 month See Instructions for Orders See Instructions for Orders See Wound Discharge Instructions for Orders: Dictated By: Cathy Brar MD DD/ 1141 Signed By: 02/08/24 1144 [facility]10-24-2024 History of Present illness Narrative * [...] and use hydroxyzine PRN. documented in this encounterSainte Genevieve County Memorial [id number] Evaluation note* Diagnosis Stage 3a chronic kidney disease ([facility]-HCC)- Primary documented in this encounter [facility]10-[facility] Miscellaneous Notes* Telephone Encounter - Fatemeh Cain - 01/12/2024 9:03 AM EDT LM to schedule new pt appt. documented in this encounterAdena [facility] System10-16-2024 Telephone encounter Note* Telephone Encounter - Fatemeh Cain - 01/12/2024 9:03 AM EDT LM to schedule new pt appt. [employer]10-08-2024 Progress note Author Cathy Brar [facility] Note Date/Time January 04, 2024 11 :52am [facility] [address] [place] [address] Wound Center Provider Note Signed Patient: Ganga Stinson MR#: [id number] : 1960 Acct:[id number] Age/Sex: 63 / M Copies to: MD [...] 10 plus years Mode of Arrival/ Manager Solar: Personal vehicle and Family Assistive Device Used [...] Itching Wound/Ulcer Sacrum: Bed Appearance: Beefy Red, Ringoes and Yellow Percent of Wound Bed Granulated/Red: 90 Percent of Devitalized: 10 Length (cm): 2.9 Width (cm): 1.5 Depth (cm): 3 CM Sq: 4.350 Undermining Position: 360 Undermining Depth: 3.5 Surrounding Tissue Appearance: Bright Red and Rash/Irritation Surrounding Tissue Temp: Warm Drainage Amount: Large Drainage Description: Serosanguineous Drainage Odor: No Odor Right Ischium: Bed Appearance: Beefy Red, Ringoes and Yellow Percent of Wound Bed Granulated/Red: 90 Percent of Devitalized: 10 Length (cm): 7 Width (cm): 7.5 Depth (cm): 4.0 CM Sq: 52.500 Undermining Position: 8-11 Undermining Depth: 4.0 Tunneling Position: 00:00 Tunneling Depth: 0 Surrounding Tissue Appearance: Rolled Edges and Rash/Irritation Surrounding Tissue Temp: Warm Drainage Amount: Large Drainage Description: Serosanguineous Drainage Odor: No Odor Left Ischium: Bed Appearance: Beefy Red, Ringoes, Rolled Edges and Yellow Percent of Wound Bed Granulated/Red: 90 Percent of Devitalized: 10 Length (cm): 0.7 Width (cm): 0.8 Depth (cm): 2.9 CM Sq: 0.560 Tunneling Position: 10:00 Tunneling Depth: 3 Surrounding Tissue Appearance: Ringoes Surrounding Tissue Temp: Warm Drainage Amount: Large [...] underlying condition with diabetic neuropathy,unspecified; Z79.4 - assisted (current) use of insulin Plan Continue with current dressing changes and pressure relief. Podiatry following the patient's foot ulcers. Follow-up in 1 month See Instructions for Orders See Instructions for Orders See Wound Discharge Instructions for Orders: Dictated By: Cathy Brar MD DD/ 49 Signed By: <Electronically signed by MD Cathy Brar> 01/04/24 105 [facility] Work Phone: 1(709) 194-180310-08-2024 [place] [address] Wound Center Provider Note Signed Patient: Ganga Stinson MR#: [id number] : 1960 Acct:[id number] Age/Sex: 63 / M Copies to: MD [...] 10 plus years Mode of Arrival/ Manager Solar: Personal vehicle and Family Assistive Device Used [...] Itching Wound/Ulcer Sacrum: Bed Appearance: Beefy Red, Ringoes and Yellow Percent of Wound Bed Granulated/Red: 90 Percent of Devitalized: 10 Length (cm): 2.9 Width (cm): 1.5 Depth (cm): 3 CM Sq: 4.350 Undermining Position: 360 Undermining Depth: 3.5 Surrounding Tissue Appearance: Bright Red and Rash/Irritation Surrounding Tissue Temp: Warm Drainage Amount: Large Drainage Description: Serosanguineous Drainage Odor: No Odor Right Ischium: Bed Appearance: Beefy Red, Ringoes and Yellow Percent of Wound Bed Granulated/Red: 90 Percent of Devitalized: 10 Length (cm): 7 Width (cm): 7.5 Depth (cm): 4.0 CM Sq: 52.500 Undermining Position: 8-11 Undermining Depth: 4.0 Tunneling Position: 00:00 Tunneling Depth: 0 Surrounding Tissue Appearance: Rolled Edges and Rash/Irritation Surrounding Tissue Temp: Warm Drainage Amount: Large Drainage Description: Serosanguineous Drainage Odor: No Odor Left Ischium: Bed Appearance: Beefy Red, Ringoes, Rolled Edges and Yellow Percent of Wound Bed Granulated/Red: 90 Percent of Devitalized: 10 Length (cm): 0.7 Width (cm): 0.8 Depth (cm): 2.9 CM Sq: 0.560 Tunneling Position: 10:00 Tunneling Depth: 3 Surrounding Tissue Appearance: Ringoes Surrounding Tissue Temp: Warm Drainage Amount: Large [...] underlying condition with diabetic neuropathy,unspecified; Z79.4 - assisted (current) use of insulin Plan Continue with current dressing changes and pressure relief. Podiatry following the patient's foot ulcers. Follow-up in 1 month See Instructions for Orders See Instructions for Orders See Wound Discharge Instructions for Orders: Dictated By: Cathy Brar MD DD/ 1050 Signed By: 01/04/24 1052 [facility]08-22-2024 History of Present illness Narrative * [...] panel CBC and differential documented in this encounterSainte Genevieve County Memorial [id number] Progress note Author Cathy Brar [facility] Note Date/Time November 09, 2023 1: 07pm [facility] [address] [place] [address] Wound Center Provider Note Signed Patient: Ganga Stinson MR#: [id number] : 1960 Acct:[id number] Age/Sex: 63 / M Copies to: MD [...] his foot ulcers and [facility]. Currently, home [...] 10 plus years Mode of Arrival/ Manager Solar: Personal vehicle and Family Assistive Device Used Today: Wheelchair Lives with:: Spouse Appetite Description: Within Normal Limits Smoking Status: Never smoker Constitutional Constitutional: Denies fever(s) Integumentary/Breasts Skin/Breast: Reports wounds [facility] Acute kidney failure Cauda equina [...] Sacrum: Bed Appearance: Beefy Red, Bone Palpable, Ringoes and Yellow Percent of Wound Bed Granulated/Red: 90 Percent of Devitalized: 10 Length (cm): 2.5 Width (cm): 2 Depth (cm): 3 CM Sq: 5.000 Undermining Position: 360 Undermining Depth: 4 Surrounding Tissue Appearance: Bright Red and Rash/Irritation Surrounding Tissue Temp: Warm Drainage Amount: Large Drainage Description: Serosanguineous Drainage Odor: No Odor Right Ischium: Bed Appearance: Beefy Red, Ringoes and Yellow Percent of Wound Bed Granulated/Red: [...] Odor Left Ischium: Bed Appearance: Beefy Red, Ringoes, Rolled Edges and Yellow Percent of Wound Bed Granulated/Red: 90 Percent of Devitalized: 10 Length (cm): 0.7 Width (cm): 0.8 Depth (cm): 2.3 CM Sq: 0.560 Tunneling Position: 10:00 Tunneling Depth: 3 Surrounding Tissue Appearance: Ringoes Surrounding Tissue Temp: Warm Drainage Amount: Large [...] underlying condition with diabetic neuropathy,unspecified; Z79.4 - assisted (current) use of insulin Plan Continue with [...] <Electronically signed by MD Cathy Brar> 11/09/[address] [place] [address] Work Phone: 1(247) 546-675208-13-2024 [place] [address] Wound Center Provider Note Signed Patient: Ganga Stinson MR#: [id number] : 1960 Acct:[id number] Age/Sex: 63 / M Copies to: MD [...] 10 plus years Mode of Arrival/ Manager Solar: Personal vehicle and Family Assistive Device Used [...] Sacrum: Bed Appearance: Beefy Red, Bone Palpable, Ringoes and Yellow Percent of Wound Bed Granulated/Red: 90 Percent of Devitalized: 10 Length (cm): 2.5 Width (cm): 2 Depth (cm): 3 CM Sq: 5.000 Undermining Position: 360 Undermining Depth: 4 Surrounding Tissue Appearance: Bright Red and Rash/Irritation Surrounding Tissue Temp: Warm Drainage Amount: Large Drainage Description: Serosanguineous Drainage Odor: No Odor Right Ischium: Bed Appearance: Beefy Red, Ringoes and Yellow Percent of Wound Bed Granulated/Red: [...] Odor Left Ischium: Bed Appearance: Beefy Red, Ringoes, Rolled Edges and Yellow Percent of Wound Bed Granulated/Red: 90 Percent of Devitalized: 10 Length (cm): 0.7 Width (cm): 0.8 Depth (cm): 2.3 CM Sq: 0.560 Tunneling Position: 10:00 Tunneling Depth: 3 Surrounding Tissue Appearance: Ringoes Surrounding Tissue Temp: Warm Drainage Amount: Large [...] underlying condition with diabetic neuropathy,unspecified; Z79.4 - meterman (current) use of insulin Plan Continue with [...] Brar MD DD/ 01 Signed By: 11/09/23 1207 [facility]07-09-2024 Progress note Author Cathy Brar [facility] Note Date/Time October 05, 2023 12:20 pm [facility] [address] [place] [address] Wound Center Provider Note Signed Patient: Ganga Stinson MR#: [id number] : 1960 Acct:[id number] Age/Sex: 63 / M Copies to: MD [...] is Dr. Abbott. 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 Apparently he was to start on a new medication and will need to be on blood thinners because of the medication. Subjective Pain Buttock: Pain Intensity: 6 Wound/Ulcer History When did wound start?: 10 plus years Mode of Arrival/ Manager Solar: Personal vehicle and Family Assistive Device Used [...] 40 mg PO DAILY 02/06/24 [History Confirmed 10/05/23] Allergies vancomycin Adverse Reaction (Severe, Verified 02/08/23 12:50) Shut kidneys down ferrous sulfate Adverse Reaction (Verified 02/07/23 15:14) Itching Wound/Ulcer Sacrum: Bed Appearance: Beefy Red, Ringoes and Yellow Percent of Wound Bed Granulated/Red: 90 Percent of Devitalized: 10 Length (cm): 2.6 Width (cm): 1.5 Depth (cm): 2.9 CM Sq: 3.900 Undermining Position: 360 (deepest at 9) Undermining Depth: 4.5 Surrounding Tissue Appearance: Hyperpigmented Surrounding Tissue Temp: Warm Drainage Amount: Large Drainage Description: Serosanguineous Drainage Odor: No Odor Right Ischium: Bed Appearance: Beefy Red, Bone Palpable, Ringoes and Yellow Percent of Wound Bed Granulated/Red: 90 Percent of Devitalized: 10 Length (cm): 5 Width (cm): 7 Depth (cm): 3.5 CM Sq: 35.000 Undermining Position: 8-11 (deepest at 9) Undermining Depth: 3.7 Surrounding Tissue Appearance: Hyperpigmented Surrounding Tissue Temp: Warm Drainage Amount: Large Drainage Description: Serosanguineous Left Ischium: Bed Appearance: Beefy Red, Ringoes and Yellow Percent of Wound Bed Granulated/Red: [...] underlying condition with diabetic neuropathy,unspecified; Z79.4 - meterman (current) use of insulin Plan Continue with current dressing changes and pressure relief. Okay to start on new medications prescribed by veneer grader. Patient and were told to monitor for evidence of bleeding from the wounds. Follow-up in about 1 month. See Instructions for Orders See Instructions for Orders See Wound Discharge Instructions for Orders: Dictated By: Cathy Brar MD DD/ [id number] Signed By: <Electronically signed by MD Cathy Brar> 10/05/23 1120 [facility] Work Phone: 1(217) 413-772007-09-2024 [place] [address] Wound Center Provider Note Signed Patient: Ganga Stinson MR#: [id number] : 1960 Acct:[id number] Age/Sex: 63 / M Copies to: MD [...] is Dr. Abbott. 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 Apparently he was to start on a new medication and will need to be on blood thinners because of the medication. Subjective Pain Buttock: Pain Intensity: 6 Wound/Ulcer History When did wound start?: 10 plus years Mode of Arrival/ Manager Solar: Personal vehicle and Family Assistive Device Used [...] Itching Wound/Ulcer Sacrum: Bed Appearance: Beefy Red, Ringoes and Yellow Percent of Wound Bed Granulated/Red: 90 Percent of Devitalized: 10 Length (cm): 2.6 Width (cm): 1.5 Depth (cm): 2.9 CM Sq: 3.900 Undermining Position: 360 (deepest at 9) Undermining Depth: 4.5 Surrounding Tissue Appearance: Hyperpigmented Surrounding Tissue Temp: Warm Drainage Amount: Large Drainage Description: Serosanguineous Drainage Odor: No Odor Right Ischium: Bed Appearance: Beefy Red, Bone Palpable, Ringoes and Yellow Percent of Wound Bed Granulated/Red: 90 Percent of Devitalized: 10 Length (cm): 5 Width (cm): 7 Depth (cm): 3.5 CM Sq: 35.000 Undermining Position: 8-11 (deepest at 9) Undermining Depth: 3.7 Surrounding Tissue Appearance: Hyperpigmented Surrounding Tissue Temp: Warm Drainage Amount: Large Drainage Description: Serosanguineous Left Ischium: Bed Appearance: Beefy Red, Ringoes and Yellow Percent of Wound Bed Granulated/Red: [...] underlying condition with diabetic neuropathy,unspecified; Z79.4 - meterman (current) use of insulin Plan Continue with current dressing changes and pressure relief. Okay to start on new medications prescribed by veneer grader. Patient and were told to monitor for evidence of bleeding from the wounds. Follow-up in about 1 month. See Instructions for Orders See Instructions for Orders See Wound Discharge Instructions for Orders: Dictated By: Cathy Brar MD DD/ 1115 Signed By: 10/05/23 1120 [facility]02-15-2024 Telephone encounter Note* Telephone Encounter - Sandhya Velasquez RN - 05/13/2023 3:00 PM EST Patient called to inquire about the antibiotic that was supposed to be sent after his 05/06 visit. Can you resend? Thank you! [facility] [id number] Miscellaneous Notes* Telephone Encounter - Sandhya Velasquez RN - 05/13/2023 3:00 PM EST Patient called to inquire about the antibiotic that was supposed to be sent after his 28 visit. Can you resend? Thank you! documented in this encounterSainte Genevieve County Memorial [id number] History of Present illness Narrative* Jonathanjohn Bah, DPM - 05/06/2023 10:20 AM EST Patient: [...] go to wound care at [facility] Patient also has Integra wound graft [...] or home health. Patient currently going at [facility] for decubitus ulcer Patient still awaits MRI approval as had to be resubmitted due to need for new x-ray on previous visit in awaits MRI at [facility] . Referral has been sent to [facility] wound center with attempt [...] region for possible osteomyelitis to fibula at [facility] ASSESSMENT 12 weeks s/p left 4th and 5th ray amputation with incision and drainage and partial closure with single lobe flap Type 2 diabetic with paraplegia 1. Ulcer of left ankle, with necrosis of bone (HCC) (CMS/HCC) 2. Diabetes mellitus due to underlying condition with diabetic polyneuropathy, unspecified whether group home insulin use (CMS/HCC) 3. Acute complete [...] oral antibiotics Patient to follow up with [facility] for decubitus ulcer and instructions [...] MRI Jonathan Bah DPM documented in this encounterSainte Genevieve County Memorial [id number] Progress note Author Cathy Brar [facility] May 04, 2023 1:07pm Note Date/Time May 04, 2023 1 2:48pm [facility] [address] [place] [address] Wound Center Provider Note Signed Patient: Ganga Stinson MR#: [id number] : 1960 Acct:[id number] Age/Sex: 62 / M Copies to: MD [...] wound start?: years Mode of Arrival/ Manager Solar: Personal vehicle Assistive Device Used Today: Wheelchair [...] Itching Wound/Ulcer Right Lateral Ankle: Bed Appearance: Ringoes and Yellow Percent of Wound Bed Granulated/Red: [...] No Odor Right Medial Foot: Bed Appearance: Ringoes and Yellow Percent of Wound Bed Granulated/Red: 50 Percent of Devitalized: 50 Length (cm): 1.0 Width (cm): 1.0 Depth (cm): 0.3 CM Sq: 1.000 Surrounding Tissue Appearance: Hyperpigmented Surrounding Tissue Temp: Warm Drainage Amount: Moderate Drainage Description: Serosanguineous Drainage Odor: No Odor Sacrum: Bed Appearance: Beefy Red, Ringoes and Yellow Percent of Wound Bed Granulated/Red: 90 Percent of Devitalized: 10 Length (cm): 2.9 Width (cm): 1.5 Depth (cm): 2.5 CM Sq: 4.350 Undermining Position: 360 deepest at 9:00 Undermining Depth: 4.0 Surrounding Tissue Appearance: Hyperpigmented, Macerated and Callous Surrounding Tissue Temp: Warm Drainage Amount: Large Drainage Description: Serosanguineous Drainage Odor: No Odor Right Ischium: Bed Appearance: Beefy Red, Ringoes and Yellow Percent of Wound Bed Granulated/Red: 90 Percent of Devitalized: 10 Length (cm): 5.3 Width (cm): 7.5 Depth (cm): 4.0 CM Sq: 39.750 Surrounding Tissue Appearance: Ringoes, Macerated and Callous Surrounding Tissue Temp: Warm Drainage Amount: Large Drainage Description: Serosanguineous Drainage Odor: No Odor Left Ischium: Bed Appearance: Beefy Red and Ringoes Percent of Wound Bed Granulated/Red: 100 Percent [...] underlying condition with diabetic neuropathy,unspecified; Z79.4 - assisted (current) use of insulin (5) Foot ulcer [...] MD Cathy Brar> 05/04/23 1307 [facility] Work Phone: 1(192) 174-196708-14-2023 Hospital Discharge instructions Patient Education 11/09/2022 14:08:53 [...] Follow these instructions at home: Medicines Take [id number] and prescription medicines only as told by [...] provider. Document Revised: 12/04/2020 Document Reviewed: 12/04/2020 [employer] Patient Education 2022 Mevvy. Follow Up Care 10/13/2022 11:18:02 With:ALLEN NAZARIO, Jovanny Christie, URL Address: [facility] [address], [place] [address]- [phone] When: Unknown Comments:sched cysto [facility] 03-31-2023 History of Present illness Narrative* [...] 06/26/2022 12:01 PM EDT Physical Therapy Facility/Department: [facility] Daily Treatment Note NAME: Ganga [...] 06/26/2022 12:00 PM EDT Occupational Therapy Facility/Department: [facility] Daily Treatment Note NAME: Ganga [...] 06/26/2022 9:35 AM EDT [facility] with [...] surgery at this tie via cart. * Pnachito Crockett RN - 06/26/2022 5:00 AM EDT Pt incontinent of bowels- wound dressings changed per order. See flow sheet * Panchito Crockett RN - 06/26/2022 3:00 AM EDT Traveling Freight Agent at bedside for wound dressing change- pt incontinent of bowels. See flow sheet for details. * Panchito Crockett RN - 06/26/2022 1:30 AM EDT Pt incontinent of stool. Traveling Freight Agent at bedside for wound change dressing per order- see flow sheet for details. * Panchito Crockett RN - 06/26/2022 12:50 AM EDT Patient at bedside for reassessment and vitals- see flow sheet for details. Pt remains alert and oriented c4-calm and cooperative. GoLYTELY at bedside and marketing writer encourages patient to consume fluid- pt validates understanding. Patient currently denying pain and discomfort. Denying any additional needs, call light placed within reach, bed in lowest position. Traveling Freight Agent encourages patient to call out for assistance. Will continue to monitor. * Panchito Crockett RN - 06/26/2022 12:45 AM EDT Traveling Freight Agent at bedside- pt incontinent of stool- wound dressing changed per order. See flow sheet. * Panchito Crockett RN - 06/25/2022 10:05 PM EDT Traveling Freight Agent at bedside to for wound dressing change per order. See MAR for details. * Eloise Lopez PTA - 06/25/2022 3:56 PM EDT Physical Therapy Facility/Department: [facility] Daily Treatment Note NAME: Ganga [...] bed. Supine BLE PROM exercises in all [id number] ea. Seated EOB AROM in LAQ 2x [...] never been a smoker. He saw a healthcare market consultant at [facility] 2 years ago in 2020. At [...] follows with wound clinic at [facility]. Mr. Stinson also denied any current or recent chest pain, abdominal pain, bleeding problems, problems with his medications or any other concerns at this time. Past Medical History: Diagnosis Date Abnormal EKG 06/23/2022 Acute kidney injury superimposed on CKD (HCC) 06/23/2022 Cauda equina syndrome ([facility]) 2004 Depression Hypertension MRSA (methicillin resistant staph aureus) culture positive 04/10/2017 right ankle Open wound of right ankle 12/30/2016 Paralysis of both lower limbs ([facility]) Paraplegia ([facility]) Type II or unspecified type diabetes mellitus without mention of complication, not stated as uncontrolled Unspecified sleep apnea CURRENT ALLERGIES: Vancomycin REVIEW OF SYSTEMS: 14 systems were reviewed. Pertinent positives and negatives as above, all else negative. Past Surgical History: Procedure Laterality Date APPENDECTOMY BACK SURGERY X2 OTHER SURGICAL HISTORY Right 04/10/2017 I&D rt foot/leg wounds AL I&D BELOW FASCIA FOOT 1 BURSAL SPACE Right 12/25/2016 FOOT DEBRIDEMENT INCISION AND DRAINAGE, 5TH DIGIT, PARTIAL AMB. PLACEMENT OF ANTIBOTIC BEADS performed by Gabriel Haile DPM at [facility] OR AL I&D BELOW FASCIA FOOT 1 BURSAL SPACE Right 04/10/2017 RIGHT ANKLE AND RIGHT HEEL DEBRIDEMENT INCISION AND DRAINAGE WITH CULTURES SENT performed by William Jimenez MD at [facility] OR AL OFFICE/OUTPT VISIT,PROCEDURE ONLY Right 06/14/2017 FOOT DEBRIDEMENT INCISION AND DRAINAGE-ANKLE INCLUDING BONE BIOPSY performed by Ro Husseint [facility] OR TOE AMPUTATION Right 12/25/2016 right fifth toe amputation with I&D, ATB beads per Dr. Haile VENA CAVA FILTER PLACEMENT duryea filter Social History: Social History Tobacco Use [...] of right ankle, stage 4 ([facility]) 06/24/2022 Open wound of right ankle 12/30/2016 Mixed hyperlipidemia 04/25/2015 Hyponatremia 04/25/2015 Diabetes mellitus ([facility]) 07/02/2011 Paraplegia ([facility]) 03/12/2011 MSSA (methicillin susceptible Staphylococcus aureus) infection 05/28/2017 Bacterial infection 02/17/2017 Enterococcus faecalis infection 12/28/2016 Skin ulcer of right heel with fat layer exposed ([facility]) 09/02/2016 Skin ulcer of right 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 ([facility]) 04/25/2015 Decubitus ulcer of coccygeal region 07/19/2013 Cauda equina syndrome ([facility]) 12/09/2011 Open wound of knee, leg (except thigh), and ankle, complicated 02/25/2011 Acute kidney injury superimposed on CKD ([facility]) 06/23/2022 Abnormal EKG 06/23/2022 Neurogenic bladder 06/23/2022 [...] Active Cardiac Condition No (decompensated HF, Arrhythmia, ME <3 weeks, severe valve disease) Risk Level [...] with the plan. Sincerely, Zoila Villafuerte PA-C [facility] Administration Intern [address] [place], [place] [id number] , I believe that the risk of [...] both lower limbs (HCC) Paraplegia ([facility]) Type II or unspecified type diabetes mellitus without mention of complication, not stated as uncontrolled Unspecified sleep apnea Past Surgical History: Procedure Laterality Date APPENDECTOMY BACK SURGERY X2 OTHER SURGICAL HISTORY Right 04/10/2017 I&D rt foot/leg wounds AL I&D BELOW FASCIA FOOT 1 BURSAL SPACE Right 12/25/2016 FOOT DEBRIDEMENT INCISION AND DRAINAGE, 5TH DIGIT, PARTIAL AMB. PLACEMENT OF ANTIBOTIC BEADS performed by Gabriel Haile DPM at [facility] OR AL I&D BELOW FASCIA FOOT 1 BURSAL SPACE Right 04/10/2017 RIGHT ANKLE AND RIGHT HEEL DEBRIDEMENT INCISION AND DRAINAGE WITH CULTURES SENT performed by William Jimenez MD at [facility] OR AL OFFICE/OUTPT VISIT,PROCEDURE ONLY Right 06/14/2017 FOOT DEBRIDEMENT INCISION AND DRAINAGE-ANKLE INCLUDING BONE BIOPSY performed by Enrique Hussein [facility] OR TOE AMPUTATION Right 12/25/2016 right fifth toe amputation with I&D, ATB beads per Dr. Haile VENA CAVA FILTER PLACEMENT duryea filter Allergies Allergen Reactions Vancomycin States had [...] Matias Garcia MD, 5,000 Units at 06/23/22 3747 PE: VSS, Afebrile, NAD, A&O x 3, Aloof Labs: as above RLE ; lateral ankle ; FT+ ulcerative wound , +PTB IMP: stage 4 ankle decubitus, appaarent bone involvement Stable for minor bedside procedure Tx: see procedure notes P: see orders / AVS Yakov Min DPM 06/25/2022 12:28 PM * LAURENT Gomez - 06/25/2022 11:55 AM EDT Occupational Therapy Facility/Department: [facility] Daily Treatment Note NAME: Ganga [...] Nagy MD 8:05 AM 06/25/2022 * Shelly MoralesKipTripp, ELEMENTARY SPECIAL EDUCATION TEACHER - IT INVESTMENT/PORTFOLIO MANAGER - 06/25/2022 7:34 AM EDT Images from [...] 06/23/22 0640 06/24/22 0615 06/24/22 1400 06/25/22 06 WBC 9.0 6.6 -- 8.7 RBC 3.22* [...] labs-Hgb 7.6 today Nutrition status: morbid obesity Gripper Attacher consult initiated Hospital Prophylaxis: DVT: Heparin Stress Ulcer: na Disposition: Shared decision making: All test results, treatment options and disposition options were discussed with the patient today Social determinants of health that may impact management: none Code status: Full Code Disposition: Discharge plan is home [facility] Advanced Care Planning documentation: [x] [...] the patient's medical record. [DOES NOT SATISFY [facility] PERFORMANCE] Shelly Mondragon, ESTELLE - DOLLY , MARIFER MCCABE-C Hospitalist Medicine 06/25/2022, 7:34 AM IVETT Newman Associated attestation - Matias Garcia MD - 06/25/2022 7:34 PM EDT Images from the original note were not included. [address] , [place], [place], [address] Attestation Patient: Ganga Stinson Date of Admission: 06/22/2022 4:21 PM Hospital Day # 3 Date of Evaluation: 06/25/2022 I personally evaluated and examined the patient [id number] in conjunction with the PA/COMPENSATION VICE PRESIDENT and agree with the management and dispostition of the patient. Please see the PA/COMPENSATION VICE PRESIDENT's note for full details.My kohli findings are: [...] with the plan as outlined in the COMPENSATION VICE PRESIDENT/PA's note Disposition: Discharge plan is pending Please note that this chart was generated using voice recognition 72xuanon dictation software. Although every effort was made to ensure the accuracy of this automated calculating machine operator, some errors in calculating machine operator may have occurred. Matias Garcia [...] Samayoa RN - 06/25/2022 12:52 AM EDT Traveling Freight Agent at bedside at this time to perform [...] Samayoa RN - 06/24/2022 6:43 PM EDT Traveling Freight Agent at bedside at this time to perform [...] 06/24/2022 4:57 PM EDT Physical Therapy Facility/Department: [facility] Daily Treatment Note NAME: Ganga [...] Time Out 1643 Minutes 19 Martita Tam, SOLE FILLER * Heri Valdez RN - 06/24/2022 4:00 [...] never been a smoker. He saw a healthcare market consultant at [facility] 2 years ago in 2020. At [...] follows with wound clinic at [facility]. Mr. Stinson also denied any current or recent chest pain, abdominal pain, bleeding problems, problems with his medications or any other concerns at this time. Past Medical History: Diagnosis Date Abnormal EKG 06/23/2022 Acute kidney injury superimposed on CKD (HCC) 06/23/2022 Cauda equina syndrome ([facility]) 2003 Depression Hypertension MRSA (methicillin resistant staph aureus) culture positive 04/10/2017 right ankle Open wound of right ankle 12/30/2016 Paralysis of both lower limbs ([facility]) Paraplegia ([facility]) Type II or unspecified type diabetes mellitus without mention of complication, not stated as uncontrolled Unspecified sleep apnea CURRENT ALLERGIES: Vancomycin REVIEW OF SYSTEMS: 14 systems were reviewed. Pertinent positives and negatives as above, all else negative. Past Surgical History: Procedure Laterality Date APPENDECTOMY BACK SURGERY X2 OTHER SURGICAL HISTORY Right 04/10/2017 I&D rt foot/leg wounds AL I&D BELOW FASCIA FOOT 1 BURSAL SPACE Right 12/25/2016 FOOT DEBRIDEMENT INCISION AND DRAINAGE, 5TH DIGIT, PARTIAL AMB. PLACEMENT OF ANTIBOTIC BEADS performed by Gabriel Haile DPM at [facility] OR AL I&D BELOW FASCIA FOOT 1 BURSAL SPACE Right 04/10/2017 RIGHT ANKLE AND RIGHT HEEL DEBRIDEMENT INCISION AND DRAINAGE WITH CULTURES SENT performed by William Jimenez MD at [facility] OR AL OFFICE/OUTPT VISIT,PROCEDURE ONLY Right 06/14/2017 FOOT DEBRIDEMENT INCISION AND DRAINAGE-ANKLE INCLUDING BONE BIOPSY performed by Ro Husseint [facility] OR TOE AMPUTATION Right 12/25/2016 [...] 04/25/2015 Hyponatremia 04/25/2015 Diabetes mellitus ([facility]) 07/02/2011 Paraplegia ([facility]) 03/12/2011 MSSA (methicillin susceptible Staphylococcus aureus) infection 05/28/2017 Bacterial infection 02/17/2017 Enterococcus faecalis infection 12/28/2016 Skin ulcer of right heel with fat layer exposed ([facility]) 09/02/2016 Skin ulcer of right 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 ([facility]) 04/25/2015 Decubitus ulcer of coccygeal region 07/19/2013 [...] with the plan. Sincerely, Zoila Villafuerte PA-C [facility] Healthcare Administration Intern [address] [place] [address] , I believe that the risk of [...] 06/24/2022 10:32 AM EDT Occupational Therapy Facility/Department: [facility] Daily Treatment Note NAME: Ganga [...] Bed Mobility Training: (positioned on side for AmSafe to complete ultrasound at end of session) [...] prep on 06/25/2022 6pm KATERINA ATKINS MD [facility] * Shelly Mondragon, ELEMENTARY SPECIAL EDUCATION TEACHER - IT INVESTMENT/PORTFOLIO MANAGER - 06/24/2022 7:34 AM EDT Images from [...] Diagnostic Data: Complete Blood Count: Recent Labs 06/22/220 06/23/22 0640 06/24/22 0615 WBC 12.8* 9.0 [...] IRon Monitor labs Nutrition status: morbid obesity Gripper Attacher consult initiated Hospital Prophylaxis: DVT: Heparin Stress Ulcer: na Disposition: Shared decision making: All test results, treatment options and disposition options were discussed with the patient today Social determinants of health that may impact management: none Code status: Full Code Disposition: Discharge plan is home [facility] Advanced Care Planning documentation: [x] [...] the patient's medical record. [DOES NOT SATISFY [facility] PERFORMANCE] Shelly Mondragon APRN - DOLLY , ELEMENTARY SPECIAL EDUCATION TEACHER, COMPENSATION VICE PRESIDENT-C Hospitalist Medicine 06/24/2022, 7:34 AM Blood Transfusion [...] with transfusion of blood components. Shelly Mondragon APRN-IT INVESTMENT/PORTFOLIO MANAGER Associated attestation - Matias Garcia MD - 06/24/2022 9:40 PM EDT Images from the original note were not included. [address] , [place], [place], [address] Attestation Patient: Ganga Stinson Date of Admission: 06/22/2022 4:21 PM Hospital Day # 2 Date of Evaluation: 06/24/2022 I personally evaluated and examined the patient [id number] in conjunction with the PA/COMPENSATION VICE PRESIDENT and agree with the management and dispostition of the patient. Please see the PA/COMPENSATION VICE PRESIDENT's note for full details.My kohli findings are: [...] with the plan as outlined in the COMPENSATION VICE PRESIDENT/PA's note Disposition: Discharge plan is pending, GI, Cardiology, Urology consultations, Transfuse if pRBC <7, wound care to the affected area and monitor electrolytes. Please note that this chart was generated using voice recognition 72xuanon dictation software. Although every effort was made to ensure the accuracy of this automated calculating machine operator, some errors in calculating machine operator may have occurred. Matias Garcia MD 06/24/2022 9:39 PM * Geneva Samayoa RN - 06/24/2022 2:46 AM EDT Spoke with Dr. Garcia and informed him of critical lab levels. No new orders. * Geneva Samayoa RN - 06/24/2022 2:15 AM EDT Traveling Freight Agent at bedside at this time to perform [...] this time and patient transferred over to [facility]. * Geneva Samayoa RN - 06/23/2022 9:00 PM EDT Traveling Freight Agent at bedside at this time to perform [...] 06/23/2022 4:35 PM EDT Physical Therapy Facility/Department: [facility] Daily Treatment Note NAME: Ganga [...] 06/23/2022 4:31 PM EDT Occupational Therapy Facility/Department: [facility] Daily Treatment Note NAME: Ganga [...] 06/23/2022 2:08 PM EDT Physical Therapy Facility/Department: [facility] Physical Therapy Initial Assessment Name: [...] Ambulation Assistance: Non-ambulatory Transfer Assistance: Independent Active Rock Climbing Team Member: No Additional Comments: Pt. with hx of [...] Mobility Inpatient CMS 0-100% Score: 67.36 (06/23/22 140) Mobility Inpatient without Stair CMS G-Code Modifier [...] 0934 Time Out 0958 Minutes 24 Sarah Hrae, PT, DPT * Rae Zamudio OT - 06/23/2022 11:26 AM EDT Occupational Therapy Facility/Department: [facility] Occupational Therapy Initial Assessment Name: [...] Ambulation Assistance: Non-ambulatory Transfer Assistance: Independent Active Rock Climbing Team Member: No Additional Comments: Pt. with hx of [...] to Severe Extremities (+ 2 pitting BLE) White Mixing Operator Strength: Not Performed Nutrition Assessment: Altered [...] Anthropometric Measures: Height: 5' 11 (180.3 cm) [place] Body Weight (IBW): 172 lbs (78 kg) [...] Used for Energy Requirements: Current Energy (kcal/day): 6157-6397 (20-23/kg) Weight Used for Protein Requirements: [place] Protein (g/day): 109-133g (1.4-1.7g/kg) Method Used for [...] Nutrition Supplement [address], LD Contact: [id number] * Panchito Crockett RN - 06/23/2022 1:00 AM EDT Traveling Freight Agent at bedside for reassessment-see flow sheet for details. Patient remains alert and oriented x4-calm and cooperative. Patient continues to deny pain and discomfort. Incontinence and stewart care provided. Denying any additional needs, call light placed within reach, bed in lowest position and alarm engaged to promote patient safety. Will continue to monitor. * Panchito Crockett RN - 06/23/2022 12:00 AM EDT Traveling Freight Agent attempted to place rowe catheter at this time- unable to advance 16 FR catheter. Rn Wireless Store Manager notified and will attempt- will continue to monitor. Patient reports no pain or discomfort. * Panchito Crockett RN - 06/22/2022 11:12 PM EDT Traveling Freight Agent phoned Dr. Garcia at this informing physician [...] continue to monitor. [facility] [employer] Phone: [phone] Hospital Discharge instructions* Discharge Instructions* Fabby Felder [...] the dietitian. Regular documented in this encounterBON [facility]ITAL[facility] Work Phone: 1(438) 762-596003-07-2023 Progress note Author Cathy Brar [facility] June 02, 2022 12:14pm Note Date/Time June 02, 2022 12:1 4pm [facility] [address] [place] [address] Wound Center Provider Note Signed Patient: Ganga Stinson MR#: [id number] : 1960 Acct:[id number] Age/Sex: 61 / M Copies to: MD Fidel Whitmore MD~ HPI Date of Visit Date of Visit: Date of Service: 06/02/2022 Time of Service: 12:01 Narrative HPI: Patient is being followed for his chronic bilateral ischial, sacral and right foot ulcers. His is doing his dressing changes. Patient has been having some right hip pain and underwent a CT scan in [place] on 03/14/2022. This showed slight deepening of [...] Sacrum: Bed Appearance: Beefy Red, Bone Palpable, Ringoes and Yellow Percent of Wound Bed Granulated/Red: 90 Percent of Devitalized: 10 Length (cm): 3.5 Width (cm): 1.8 Depth (cm): 2 CM Sq: 6.300 Undermining Position: 360 Undermining Depth: 3 Surrounding Tissue Appearance: Ringoes Surrounding Tissue Temp: Warm Drainage Amount: Large Drainage Description: Serosanguineous Drainage Odor: No Odor Left Ischium: Bed Appearance: Beefy Red, Bone Palpable, Ringoes and Yellow Percent of Wound Bed Granulated/Red: 90 Percent of Devitalized: 10 Length (cm): 7 Width (cm): 6 Depth (cm): 5.5 CM Sq: 42.000 Surrounding Tissue Appearance: Ringoes Surrounding Tissue Temp: Warm Drainage Amount: Large Drainage Description: Serosanguineous Drainage Odor: No Odor Right Ischium: Bed Appearance: Beefy Red, Bone Palpable, Ringoes and Yellow Percent of Wound Bed Granulated/Red: 90 Percent of Devitalized: 10 Length (cm): 0.7 Width (cm): 1 Depth (cm): 4 CM Sq: 0.700 Surrounding Tissue Appearance: Ringoes Surrounding Tissue Temp: Warm Drainage Amount: Moderate Drainage Description: Serosanguineous Drainage Odor: No Odor Left Ankle: Bed Appearance: Brown, Ringoes and Yellow Percent of Wound Bed Granulated/Red: 5 Percent of Devitalized: 95 Length (cm): 3.5 Width (cm): 2.5 Depth (cm): 0.1 CM Sq: 8.750 Surrounding Tissue Appearance: Ringoes Surrounding Tissue Temp: Warm Drainage Amount: Moderate Drainage Description: Serosanguineous Drainage Odor: No Odor Medial Ankle: Bed Appearance: Brown, Ringoes and Yellow Percent of Wound Bed Granulated/Red: 50 Percent of Devitalized: 50 Length (cm): 3.5 Width (cm): 4 Depth (cm): 0.1 CM Sq: 14.000 Surrounding Tissue Appearance: Ringoes Surrounding Tissue Temp: Warm Drainage Amount: Moderate Drainage Description: Serosanguineous Drainage Odor: No Odor Medial Foot: Bed Appearance: Black Dry, Brown, Ringoes and Hardware Percent of Wound Bed Granulated/Red: 5 Percent of Devitalized: 95 Length (cm): 2 Width (cm): 1.2 Depth (cm): 0.1 CM Sq: 2.400 Surrounding Tissue Appearance: Ringoes Surrounding Tissue Temp: Warm Drainage Amount: Moderate [...] 2 Diabetes mellitus group home insulin use:with director long term care use Diabetes mellitus complication status: with skin [...] MD Cathy Brar> 06/02/22 1214 [facility] Work Phone: [phone] Progress note Author Cathy Brar [facility] March 03, 2022 12:06pm Note Date/Time March 03, 2022 1 2:06pm [facility] [address] [place] [address] Wound Center Provider Note Signed Patient: Ganga Stinson MR#: [id number] : 1960 Acct:[id number] Age/Sex: 61 / M Copies to: MD [...] Ischium: Bed Appearance: Beefy Red, Bone Palpable, Ringoes and Yellow Percent of Wound Bed Granulated/Red: [...] Bed Appearance: Beefy Red, Bone Palpable, Devitalized, Ringoes, Yellow and Rolled Edges Percent of Wound Bed Granulated/Red: 50 Percent of Devitalized: 50 Length (cm): 0.7 Width (cm): 0.8 Depth (cm): 4.0 CM Sq: 0.560 Undermining Position: 0 Undermining Depth: 0 Surrounding Tissue Appearance: Macerated and Rolled Edges Surrounding Tissue Temp: Warm Drainage Amount: Moderate Drainage Description: Serosanguineous Drainage Odor: No Odor Lidocaine Applied Topically: 2% Jelly Right Buttock: Bed Appearance: Devitalized, Ringoes and Yellow Percent of Wound Bed Granulated/Red: 100 Percent of Devitalized: 0 Length (cm): 0 Width (cm): 0 Depth (cm): 0 CM Sq: 0.000 Surrounding Tissue Appearance: Hyperpigmented Surrounding Tissue Temp: Warm Drainage Amount: None Drainage Description: Serosanguineous Drainage Odor: No Odor Lidocaine Applied Topically: 2% Jelly Right Lower Medial Leg: Bed Appearance: Ringoes and Yellow Percent of Wound Bed Granulated/Red: [...] Diabetes mellitus type: type 2 Diabetes mellitus director long term care insulin use:with director long term care use Diabetes mellitus complication status: with skin complications Diabetes mellitus complication detail: with other skin ulcer Qualified Code(s): E11.622 - Type 2 diabetes mellitus with other skin ulcer; Z79.4 - meterman (current) use of insulin Code(s): E11.9 - [...] signed by MD Cathy Brar> 03/03/22 1206 [facility] Work Phone: 1([phone] 741-108812-02-2022 NotePROCEDURE: XR HIP RT 2 3V W [...] by: KHADAR MEDINA Date: 2022-02-27 07:17[facility]11-01-2022 Progress note Author Cathy Brar [facility] January 27, 2022 12:11pm Note Date/Time January 27, 2022 1 2:11pm [facility] [address] [place] [address] Wound Center Provider Note Signed Patient: Ganga Stinson MR#: [id number] : 1960 Acct:[id number] Age/Sex: 61 / M Copies to: MD [...] 360 Undermining Depth: 3.5 Surrounding Tissue Appearance: Ringoes and Rolled Edges Surrounding Tissue Temp: Warm Drainage Amount: Large Drainage Description: Serosanguineous Drainage Odor: No Odor Lidocaine Applied Topically: 2% Jelly Right Heel: Bed Appearance: Beefy Red, Ringoes and Yellow Percent of Wound Bed Granulated/Red: 50 Percent of Devitalized: 50 Length (cm): 1.0 Width (cm): 1.4 Depth (cm): 0.1 CM Sq: 1.400 Surrounding Tissue Appearance: Peeling and Dryness Surrounding Tissue Temp: Warm Drainage Amount: Small Drainage Description: Serosanguineous Drainage Odor: No Odor Lidocaine Applied Topically: 2% Jelly Right Ischium: Bed Appearance: Beefy Red, Bone Palpable, Ringoes and Yellow Percent of Wound Bed Granulated/Red: [...] Bed Appearance: Beefy Red, Bone Palpable, Devitalized, Ringoes, Yellow and Rolled Edges Percent of Wound Bed Granulated/Red: 50 Percent of Devitalized: 50 Length (cm): 1.5 Width (cm): 1.0 Depth (cm): 4.0 CM Sq: 1.500 Undermining Position: 10-3:00 Undermining Depth: 3.5 Surrounding Tissue Appearance: Macerated and Rolled Edges Surrounding Tissue Temp: Warm Drainage Amount: Moderate Drainage Description: Serosanguineous Drainage Odor: No Odor Lidocaine Applied Topically: 2% Jelly Right Buttock: Bed Appearance: Devitalized, Ringoes and Yellow Percent of Wound Bed Granulated/Red: 100 Percent of Devitalized: 0 Length (cm): 0 Width (cm): 0 Depth (cm): 0 CM Sq: 0.000 Surrounding Tissue Appearance: Ringoes Surrounding Tissue Temp: Warm Drainage Amount: None Drainage Description: Serosanguineous Drainage Odor: No Odor Lidocaine Applied Topically: 2% Jelly Right Lower Medial Leg: Bed Appearance: Ringoes and Yellow Percent of Wound Bed Granulated/Red: [...] 2 Diabetes mellitus group home insulin use:with director long term care use Diabetes mellitus complication status: with skin complications Diabetes mellitus complication detail: with other skin ulcer Qualified Code(s): E11.622 - Type 2 diabetes mellitus with other skin ulcer; Z79.4 - meterman (current) use of insulin Code(s): E11.9 - [...] signed by MD Cathy Brar> 01/27/22 1211 [facility] Work Phone: [phone] Progress note Author Cathy Brar [facility] December 23, 2021 12:32pm Note Date/Time December 23, 2021 12:32pm [facility] [address] [place] [address] Wound Center Provider Note Signed Patient: Ganga Stinson MR#: [id number] : 1960 Acct:[id number] Age/Sex: 61 / M Copies to: MD [...] Bed Appearance: Beefy Red, Bone Palpable, Devitalized, Ringoes and Yellow Percent of Wound Bed Granulated/Red: 95 Percent of Devitalized: 5 Length (cm): 3.2 Width (cm): 2 Depth (cm): 2.5 CM Sq: 6.400 Undermining Position: 10-4:00 Undermining Depth: 5 Surrounding Tissue Appearance: Ringoes and Macerated Surrounding Tissue Temp: Warm Drainage Amount: Large Drainage Description: Serosanguineous Drainage Odor: No Odor Lidocaine Applied Topically: 2% Jelly Right Heel: Bed Appearance: Beefy Red, Devitalized, Epithelial Tissue or Bridge, Ringoes and Yellow Percent of Wound Bed Granulated/Red: 90 Percent of Devitalized: 10 Length (cm): 3 Width (cm): 8 Depth (cm): 0.1 CM Sq: 24.000 Surrounding Tissue Appearance: Peeling and Dryness Surrounding Tissue Temp: Warm Drainage Amount: Large Drainage Description: Serosanguineous Drainage Odor: No Odor Lidocaine Applied Topically: 2% Jelly Right Ischium: Bed Appearance: Beefy Red, Bone Palpable, Devitalized, Epithelial Tissue or Bridge, Ringoes and Yellow Percent of Wound Bed Granulated/Red: 95 Percent of Devitalized: 5 Length (cm): 5 Width (cm): 5 Depth (cm): 5 CM Sq: 25.000 Undermining Position: 12-6:00 Undermining Depth: 1 Surrounding Tissue Appearance: Macerated Surrounding Tissue Temp: Warm Drainage Amount: Large Drainage Description: Serosanguineous Drainage Odor: No Odor Lidocaine Applied Topically: 2% Jelly Left Ischium: Bed Appearance: Beefy Red, Bone Palpable, Devitalized, Ringoes and Yellow Percent of Wound Bed Granulated/Red: 95 Percent of Devitalized: 5 Length (cm): 1.6 Width (cm): 1.6 Depth (cm): 3.5 CM Sq: 2.560 Undermining Position: 10-3:00 Undermining Depth: 3.5 Surrounding Tissue Appearance: Macerated Surrounding Tissue Temp: Warm Drainage Amount: Moderate Drainage Description: Serosanguineous Drainage Odor: No Odor Lidocaine Applied Topically: 2% Jelly Right Buttock: Bed Appearance: Devitalized, Ringoes and Yellow Percent of Wound Bed Granulated/Red: 95 Percent of Devitalized: 5 Length (cm): 1.5 Width (cm): 0.5 Depth (cm): 0.1 CM Sq: 0.750 Surrounding Tissue Appearance: Ringoes and Callous Surrounding Tissue Temp: Warm Drainage Amount: Small Drainage Description: Serosanguineous Drainage Odor: No Odor Lidocaine Applied Topically: 2% Jelly Right Lower Lateral Leg: Bed Appearance: Beefy Red, Devitalized, Ringoes and Yellow Percent of Wound Bed Granulated/Red: 10 Percent of Devitalized: 90 Length (cm): 0 Width (cm): 0 Depth (cm): 0 CM Sq: 0.000 Surrounding Tissue Appearance: Hyperpigmented Surrounding Tissue Temp: Warm Drainage Amount: None Drainage Description: Serosanguineous Drainage Odor: No Odor Lidocaine Applied Topically: 2% Jelly Right Lower Medial Leg: Bed Appearance: Devitalized, Epithelial Tissue or Bridge, Ringoes and Yellow Percent of Wound Bed Granulated/Red: [...] 2 Diabetes mellitus group home insulin use:with director long term care use Diabetes mellitus complication status: with skin [...] signed by MD Cathy Brar> 12/23/21 1232 [facility] Work Phone: [phone]) [phone] Progress note Author Cathy Brar [facility] November 18, 2021 11:55am Note Date/Time November 18, 2021 11 :55am [facility] [address] [place] [address] Wound Center Provider Note Signed Patient: Ganga Stinson MR#: [id number] : 1960 Acct:[id number] Age/Sex: 61 / M Copies to: MD [...] Bed Appearance: Beefy Red, Bone Palpable, Devitalized, Ringoes and Yellow Percent of Wound Bed Granulated/Red: 75 Percent of Devitalized: 25 Length (cm): 3.5 Width (cm): 2.0 Depth (cm): 2.5 CM Sq: 7.000 Undermining Position: 360 (deepest at 3) Undermining Depth: 3.5 Surrounding Tissue Appearance: Hyperpigmented Surrounding Tissue Temp: Warm Drainage Amount: Large Drainage Description: Serosanguineous Drainage Odor: No Odor Lidocaine Applied Topically: 2% Jelly Right Heel: Bed Appearance: Devitalized, Ringoes and Yellow Percent of Wound Bed Granulated/Red: 1 Percent of Devitalized: 99 Length (cm): 1.6 Width (cm): 2.3 Depth (cm): 0.1 CM Sq: 3.680 Surrounding Tissue Appearance: Hyperpigmented Surrounding Tissue Temp: Warm Drainage Amount: Large Drainage Description: Serosanguineous Drainage Odor: No Odor Lidocaine Applied Topically: 2% Jelly Right Ischium: Bed Appearance: Beefy Red, Bone Palpable, Devitalized, Epithelial Tissue or Bridge, Ringoes and Yellow Percent of Wound Bed Granulated/Red: [...] Bed Appearance: Beefy Red, Bone Palpable, Devitalized, Ringoes and Yellow Percent of Wound Bed Granulated/Red: 90 Percent of Devitalized: 10 Length (cm): 2.0 Width (cm): 2.0 Depth (cm): 3.5 CM Sq: 4.000 Undermining Position: 9-11:00 Undermining Depth: 4.0 Surrounding Tissue Appearance: Hyperpigmented Surrounding Tissue Temp: Warm Drainage Amount: Moderate Drainage Description: Serosanguineous Drainage Odor: No Odor Lidocaine Applied Topically: 2% Jelly Right Buttock: Bed Appearance: Beefy Red, Devitalized, Ringoes and Yellow Percent of Wound Bed Granulated/Red: 95 Percent of Devitalized: 5 Length (cm): 2.4 Width (cm): 1.0 Depth (cm): 0.1 CM Sq: 2.400 Surrounding Tissue Appearance: Hyperpigmented Surrounding Tissue Temp: Warm Drainage Amount: Moderate Drainage Description: Serosanguineous Drainage Odor: No Odor Lidocaine Applied Topically: 2% Jelly Right Lower Lateral Leg: Bed Appearance: Beefy Red, Devitalized, Ringoes and Yellow Percent of Wound Bed Granulated/Red: 10 Percent of Devitalized: 90 Length (cm): 1.3 Width (cm): 1.4 Depth (cm): 0.1 CM Sq: 1.820 Surrounding Tissue Appearance: Hyperpigmented Surrounding Tissue Temp: Warm Drainage Amount: Moderate Drainage Description: Serosanguineous Drainage Odor: No Odor Lidocaine Applied Topically: 2% Jelly Right Lower Medial Leg: Bed Appearance: Black Dry, Devitalized, Epithelial Tissue or Bridge, Ringoes and Yellow Percent of Wound Bed Granulated/Red: [...] Diabetes mellitus type: type 2 Diabetes mellitus director long term care insulin use:with director long term care use Diabetes mellitus complication status: with skin complications Diabetes mellitus complication detail: with other skin ulcer Qualified Code(s): E11.622 - Type 2 diabetes mellitus with other skin ulcer; Z79.4 - meterman (current) use of insulin Code(s): E11.9 - [...] <Electronically signed by MD Cathy Brar> 11/18/[address] [place] [address] Ctr Work Phone: [phone] Progress note Author Cathy Brar [facility] October 21, 2021 11:44am Note Date/Time October 21, 2021 11:4 4am [facility] [address] [place] [address] Wound Center Provider Note Signed Patient: Ganga Stinson MR#: [id number] : 1960 Acct:[id number] Age/Sex: 61 / M Copies to: MD [...] Bed Appearance: Beefy Red, Bone Palpable, Devitalized, Ringoes and Yellow Percent of Wound Bed Granulated/Red: 75 Percent of Devitalized: 25 Length (cm): 4.2 Width (cm): 3.0 Depth (cm): 3.0 CM Sq: 12.600 Undermining Position: 360 (deepest at 3) Undermining Depth: 3.5 Surrounding Tissue Appearance: Hyperpigmented Surrounding Tissue Temp: Warm Drainage Amount: Large Drainage Description: Serosanguineous Drainage Odor: No Odor Lidocaine Applied Topically: 2% Jelly Right Heel: Bed Appearance: Devitalized, Ringoes and Yellow Percent of Wound Bed Granulated/Red: 50 Percent of Devitalized: 50 Length (cm): 2.3 Width (cm): 3.2 Depth (cm): 0.1 CM Sq: 7.360 Surrounding Tissue Appearance: Hyperpigmented Surrounding Tissue Temp: Warm Drainage Amount: Large Drainage Description: Serosanguineous Drainage Odor: No Odor Lidocaine Applied Topically: 2% Jelly Right Ischium: Bed Appearance: Beefy Red, Bone Palpable, Devitalized, Epithelial Tissue or Bridge, Ringoes and Yellow Percent of Wound Bed Granulated/Red: [...] Bed Appearance: Beefy Red, Bone Palpable, Devitalized, Ringoes and Yellow Percent of Wound Bed Granulated/Red: 90 Percent of Devitalized: 10 Length (cm): 3.0 Width (cm): 1.6 Depth (cm): 4.5 CM Sq: 4.800 Undermining Position: 9-11:00 Undermining Depth: 1.0 Surrounding Tissue Appearance: Hyperpigmented Surrounding Tissue Temp: Warm Drainage Amount: Moderate Drainage Description: Serosanguineous Drainage Odor: No Odor Lidocaine Applied Topically: 2% Jelly Right Buttock: Bed Appearance: Beefy Red, Devitalized, Ringoes and Yellow Percent of Wound Bed Granulated/Red: 80 Percent of Devitalized: 20 Length (cm): 2.2 Width (cm): 1.1 Depth (cm): 0.1 CM Sq: 2.420 Surrounding Tissue Appearance: Hyperpigmented Surrounding Tissue Temp: Warm Drainage Amount: Moderate Drainage Description: Serosanguineous Drainage Odor: No Odor Lidocaine Applied Topically: 2% Jelly Right Lower Lateral Leg: Bed Appearance: Beefy Red, Devitalized, Ringoes and Yellow Percent of Wound Bed Granulated/Red: 10 Percent of Devitalized: 90 Length (cm): 1.3 Width (cm): 1.4 Depth (cm): 0.1 CM Sq: 1.820 Surrounding Tissue Appearance: Hyperpigmented Surrounding Tissue Temp: Warm Drainage Amount: Moderate Drainage Description: Serosanguineous Drainage Odor: No Odor Lidocaine Applied Topically: 2% Jelly Right Lower Medial Leg: Bed Appearance: Black Dry, Devitalized, Ringoes and Yellow Percent of Wound Bed Granulated/Red: 80 Percent of Devitalized: 20 Length (cm): 1.6 Width (cm): 2.5 Depth (cm): 0.1 CM Sq: 4.000 Surrounding Tissue Appearance: Hyperpigmented Surrounding Tissue Temp: Warm Drainage Amount: Moderate Drainage Description: Serosanguineous Drainage Odor: No Odor Lidocaine Applied Topically: 2% Jelly Right Foot: Bed Appearance: Beefy Red, Devitalized, Epithelial Tissue or Bridge, Ringoes and Yellow Percent of Wound Bed Granulated/Red: [...] 2 Diabetes mellitus group home insulin use:with director long term care use Diabetes mellitus complication status: with skin complications Diabetes mellitus complication detail: with other skin ulcer Qualified Code(s): E11.622 - Type 2 diabetes mellitus with other skin ulcer; Z79.4 - meterman (current) use of insulin Code(s): E11.9 - [...] signed by MD Cathy Brar> 10/21/21 1144 [facility] Work Phone: 1([phone]) 804-584306-21-2022 Progress note Author Cathy Brar [facility] September 16, 2021 11:55am Note Date/Time September 16, 2021 11:5 1am [facility] [address] [place] [address] Wound Center Provider Note Signed Patient: Ganga Stinson MR#: [id number] : 1960 Acct:[id number] Age/Sex: 61 / M Copies to: MD [...] Wound/Ulcer Sacrum: Bed Appearance: Bone Palpable, Devitalized, Ringoes and Yellow Percent of Wound Bed Granulated/Red: [...] Heel: Bed Appearance: Black Moist, Brown, Devitalized, Ringoes and Yellow Percent of Wound Bed Granulated/Red: 95 Percent of Devitalized: 5 Length (cm): 3.4 Width (cm): 5.1 Depth (cm): 0.1 CM Sq: 17.340 Surrounding Tissue Appearance: Hyperpigmented Surrounding Tissue Temp: Warm Drainage Amount: Large Drainage Description: Serosanguineous Drainage Odor: No Odor Lidocaine Applied Topically: 2% Jelly Right Ischium: Bed Appearance: Beefy Red, Devitalized, Epithelial Tissue or Bridge, Ringoes and Yellow Percent of Wound Bed Granulated/Red: 90 Percent of Devitalized: 10 Length (cm): 5.1 Width (cm): 5.5 Depth (cm): 4 CM Sq: 28.050 Undermining Position: 1-3:00 Undermining Depth: 1.5 Surrounding Tissue Appearance: Hyperpigmented Surrounding Tissue Temp: Warm Drainage Amount: Large Drainage Description: Serosanguineous Drainage Odor: No Odor Lidocaine Applied Topically: 2% Jelly Left Ischium: Bed Appearance: Beefy Red, Bone Palpable, Devitalized, Ringoes and Yellow Percent of Wound Bed Granulated/Red: 90 Percent of Devitalized: 10 Length (cm): 3.9 Width (cm): 1.8 Depth (cm): 5 CM Sq: 7.020 Undermining Position: 9-11:00 Undermining Depth: 2.2 Surrounding Tissue Appearance: Hyperpigmented Surrounding Tissue Temp: Warm Drainage Amount: Moderate Drainage Description: Serosanguineous Drainage Odor: No Odor Lidocaine Applied Topically: 2% Jelly Right Buttock: Bed Appearance: Beefy Red, Devitalized, Ringoes and Yellow Percent of Wound Bed Granulated/Red: 99 Percent of Devitalized: 1 Length (cm): 2.3 Width (cm): 0.9 Depth (cm): 0.2 CM Sq: 2.070 Surrounding Tissue Appearance: Hyperpigmented Surrounding Tissue Temp: Warm Drainage Amount: Moderate Drainage Description: Serosanguineous Drainage Odor: No Odor Lidocaine Applied Topically: 2% Jelly Right Lower Lateral Leg: Bed Appearance: Beefy Red, Devitalized, Ringoes and Yellow Percent of Wound Bed Granulated/Red: 20 Percent of Devitalized: 80 Length (cm): 3.8 Width (cm): 2.3 Depth (cm): 0.1 CM Sq: 8.740 Surrounding Tissue Appearance: Hyperpigmented Surrounding Tissue Temp: Warm Drainage Amount: Moderate Drainage Description: Serosanguineous Drainage Odor: No Odor Lidocaine Applied Topically: 2% Jelly Right Lower Medial Leg: Bed Appearance: Black Dry, Devitalized, Ringoes and Yellow Percent of Wound Bed Granulated/Red: 75 Percent of Devitalized: 25 Length (cm): 2.5 Width (cm): 2.7 Depth (cm): 0.2 CM Sq: 6.750 Surrounding Tissue Appearance: Hyperpigmented Surrounding Tissue Temp: Warm Drainage Amount: Moderate Drainage Description: Serosanguineous Drainage Odor: No Odor Lidocaine Applied Topically: 2% Jelly Right Foot: Bed Appearance: Beefy Red, Devitalized, Epithelial Tissue or Bridge, Ringoes and Yellow Percent of Wound Bed Granulated/Red: [...] Diabetes mellitus type: type 2 Diabetes mellitus director long term care insulin use:with director long term care use Diabetes mellitus complication status: with skin complications Diabetes mellitus complication detail: with other skin ulcer Qualified Code(s): E11.622 - Type 2 diabetes mellitus with other skin ulcer; Z79.4 - meterman (current) use of insulin Code(s): E11.9 - [...] <Electronically signed by MD Cathy Brar> 09/16/21 9307 [facility] Work Phone: 1(973) 734-404505-03-2022 Progress note Author Cathy Brar [facility] July 29, 2021 12:33pm Note Date/Time July 29, 2021 12:33p [facility] [address] [place] [address] Wound Center Provider Note Signed Patient: Ganga Stinson MR#: [id number] : 1960 Acct:[id number] Age/Sex: 61 / M Copies to: MD [...] down Wound/Ulcer Sacrum: Bed Appearance: Bone Palpable, Ringoes and Yellow Percent of Wound Bed Granulated/Red: 50 Percent of Devitalized: 50 Length (cm): 2.6 Width (cm): 2.0 Depth (cm): 3.0 CM Sq: 5.200 Undermining Position: 9-4 (deepest at 4) Undermining Depth: 5.4 Surrounding Tissue Appearance: Hyperpigmented Surrounding Tissue Temp: Warm Drainage Amount: Large Drainage Description: Serosanguineous Drainage Odor: No Odor Lidocaine Applied Topically: 2% Jelly Right Heel: Bed Appearance: Black Moist, Brown, Ringoes and Yellow Percent of Wound Bed Granulated/Red: 15 Percent of Devitalized: 85 Length (cm): 6.0 Width (cm): 9.0 Depth (cm): 0.5 CM Sq: 54.000 Surrounding Tissue Appearance: Hyperpigmented Surrounding Tissue Temp: Warm Drainage Amount: Large Drainage Description: Serosanguineous Drainage Odor: No Odor Lidocaine Applied Topically: 2% Jelly Right Ischium: Bed Appearance: Beefy Red, Epithelial Tissue or Bridge, Ringoes and Yellow Percent of Wound Bed Granulated/Red: 50 Percent of Devitalized: 50 Length (cm): 9.3 Width (cm): 7.9 Depth (cm): 5.2 CM Sq: 73.470 Undermining Position: 360 (deepest at 7) Undermining Depth: 2.3 Surrounding Tissue Appearance: Hyperpigmented Surrounding Tissue Temp: Warm Drainage Amount: Large Drainage Description: Serosanguineous Drainage Odor: No Odor Lidocaine Applied Topically: 2% Jelly Left Ischium: Bed Appearance: Ringoes and Yellow Percent of Wound Bed Granulated/Red: 50 Percent of Devitalized: 50 Length (cm): 1.7 Width (cm): 1.5 Depth (cm): 3.5 CM Sq: 2.550 Undermining Position: 3-8 Undermining Depth: 4.5 Surrounding Tissue Appearance: Hyperpigmented Surrounding Tissue Temp: Warm Drainage Amount: Moderate Drainage Description: Serosanguineous Drainage Odor: No Odor Lidocaine Applied Topically: 2% Jelly Right Buttock: Bed Appearance: Beefy Red, Ringoes and Yellow Percent of Wound Bed Granulated/Red: 75 Percent of Devitalized: 25 Length (cm): 6.6 Width (cm): 2.0 Depth (cm): 0.1 CM Sq: 13.200 Surrounding Tissue Appearance: Hyperpigmented Surrounding Tissue Temp: Warm Drainage Amount: Moderate Drainage Description: Serosanguineous Drainage Odor: No Odor Lidocaine Applied Topically: 2% Jelly Right Lower Lateral Leg: Bed Appearance: Beefy Red, Ringoes and Yellow Percent of Wound Bed Granulated/Red: 50 Percent of Devitalized: 50 Length (cm): 1.8 Width (cm): 1.5 Depth (cm): 0.1 CM Sq: 2.700 Surrounding Tissue Appearance: Hyperpigmented Surrounding Tissue Temp: Warm Drainage Amount: Moderate Drainage Description: Serosanguineous Drainage Odor: No Odor Lidocaine Applied Topically: 2% Jelly Right Lower Medial Leg: Bed Appearance: Black Dry, Ringoes and Yellow Percent of Wound Bed Granulated/Red: [...] Diabetes mellitus type: type 2 Diabetes mellitus director long term care insulin use:with group home use Diabetes mellitus [...] will attempt to obtain that note from healthcare market consultant in [place]. See Instructions for Orders See Instructions for Orders See Wound Discharge Instructions for Orders: Patient may require serial debridement to remove devitalized tissue and encourage granulation. 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 Unstageable pressure ulcer of right heel acute Cauda equina spinal cord injury chronic Diabetes chronic Pressure ulcer of left hip, stage 3 resolved Pressure ulcer of right hip, stage 3 resolved [facility] Work Phone: Evaluation note* Diagnosis Neurogenic bladder Neurogenic bladder, NOS [facility]: [email or web address] note* Diagnosis Neurogenic bladder Neurogenic bladder, NOS [facility] Work [facility]: [email or web address] note* Diagnosis Hyperkalemia- Primary Hyperpotassemia Acute kidney [...] of neurogenic bladder [facility]: [email or web address] note* Diagnosis Acute kidney injury (HCC) Acute kidney failure, unspecified Iron deficiency anemia, unspecified iron deficiency anemia type [facility]: [email or web address] note* Diagnosis Onset Date Resolution Status Pressure injury of left ischium, stage 4 acute Pressure injury of right ischium, stage 4 acute Pressure ulcer of right foot, stage 2 acute Right hip pain acute 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 Diabetes chronic [facility] Work Phone: Evaluation note* Diagnosis Cauda equina syndrome (HCC) Cauda equina syndrome without mention of neurogenic bladder Neurogenic bladder Neurogenic bladder, NOS Urinary retention Retention of urine, unspecified Urinary incontinence without sensory awareness Incontinence without sensory awareness [facility]* Diagnosis Cellulitis of left foot- Primary Ulcer of left ankle, with necrosis of bone (HCC) ([facility]) Diabetes mellitus due to underlying condition with diabetic polyneuropathy, unspecified whether director long term care insulin use ([facility]) Acute complete paraplegia ([facility]) Acute osteomyelitis of left fibula ([facility]) Foot ulcer, right, with fat layer exposed ([facility]) Venous insufficiency Unspecified venous (peripheral) insufficiency documented in this encounter [facility] HealthcareEvaluation note* Diagnosis Abscess of toe, right- Primary documented in this encounter [facility] HealthcareEvaluation note* Diagnosis Onset Date Resolution Status [id number] acute Foot ulcer with fat layer exposed acute Stage IV pressure ulcer of right buttock acute 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 buttock, stage 3 chronic [facility] Work Phone: Evaluation note* Diagnosis Type 2 diabetes mellitus with hyperglycemia, without long-term current use of insulin ([facility])- Primary Dyslipidemia ([facility]) Other and unspecified hyperlipidemia Benign hypertension ([facility]) Essential hypertension, benign Major depressive disorder, recurrent episode, mild (HCC) ([facility]) Major depressive disorder, recurrent episode, mild Incontinence overflow, urine Overflow incontinence Chronic superficial 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 Type 2 diabetes mellitus with hyperglycemia, without long-term current use of insulin ([facility])- Primary Benign hypertension ([facility]) Essential hypertension, benign Major depressive disorder, recurrent episode, mild (HCC) ([facility]) Major depressive disorder, recurrent episode, mild Incontinence overflow, urine Overflow incontinence Pruritus Unspecified pruritic disorder Chronic kidney disease, stage 3a (HCC) ([facility]) Encounter for long-term (current) use of medications Encounter for long-term (current) use of other medications Cauda equina syndrome ([facility]) Cauda equina syndrome without mention of neurogenic bladder Urticaria- Primary Unspecified urticaria documented in this encounter [facility] HealthcareEvaluation note* Diagnosis Type 2 diabetes mellitus with hyperglycemia, without long-term current use of insulin ([facility])- Primary Dyslipidemia ([facility]) Other and unspecified hyperlipidemia Benign hypertension ([facility]) Essential hypertension, benign Major depressive disorder, recurrent episode, mild (HCC) ([facility]) Major depressive disorder, recurrent episode, mild Incontinence overflow, urine Overflow incontinence Chronic superficial 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 Type 2 diabetes mellitus with hyperglycemia, without long-term current use of insulin ([facility])- Primary Benign hypertension ([facility]) Essential hypertension, benign Major depressive disorder, recurrent episode, mild (HCC) ([facility]) Major depressive disorder, recurrent episode, mild Incontinence overflow, urine Overflow incontinence Pruritus Unspecified pruritic disorder Chronic kidney disease, stage 3a (HCC) ([facility]) Encounter for long-term (current) use of medications Encounter for long-term (current) use of other medications Cauda equina syndrome ([facility]) Cauda equina syndrome without mention of neurogenic bladder Urticaria- Primary Unspecified urticaria Pruritus Unspecified pruritic disorder documented in this encounter [facility] HealthcareEvaluation note* Diagnosis Type 2 diabetes mellitus with hyperglycemia, without long-term current use of insulin ([facility])- Primary Benign hypertension ([facility]) Essential hypertension, benign Major depressive disorder, recurrent episode, mild (HCC) ([facility]) Major depressive disorder, recurrent episode, mild Incontinence overflow, urine Overflow incontinence Pruritus Unspecified pruritic disorder Chronic kidney disease, stage 3a (HCC) ([facility]) Encounter for long-term (current) use of medications Encounter for long-term (current) use of other medications Cauda equina syndrome ([facility]) Cauda equina syndrome without mention of neurogenic bladder documented in this encounter [facility] HealthcareEvaluation note* Diagnosis Type 2 diabetes mellitus with hyperglycemia, without long-term current use of insulin ([facility])- Primary Dyslipidemia ([facility]) Other and unspecified hyperlipidemia Benign hypertension ([facility]) Essential hypertension, benign Major depressive disorder, recurrent episode, mild (HCC) ([facility]) Major depressive disorder, recurrent episode, mild Incontinence overflow, urine Overflow incontinence Chronic superficial 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 Type 2 diabetes mellitus with hyperglycemia, without long-term current use of insulin ([facility])- Primary Benign hypertension ([facility]) Essential hypertension, benign Major depressive disorder, recurrent episode, mild (HCC) ([facility]) Major depressive disorder, recurrent episode, mild Incontinence overflow, urine Overflow incontinence Pruritus Unspecified pruritic disorder Chronic kidney disease, stage 3a (HCC) ([facility]) Encounter for long-term (current) use of medications Encounter for long-term (current) use of other medications Cauda equina syndrome (CMS/HCC) Cauda equina syndrome without mention of neurogenic bladder Urticaria- Primary Unspecified urticaria Type 2 diabetes mellitus with hyperglycemia, without long-term current use of insulin (CMS/HCC)- Primary Benign hypertension (CMS/HCC) Essential hypertension, benign Major depressive disorder, recurrent episode, mild (HCC) ([facility]) Major depressive disorder, recurrent episode, mild Incontinence overflow, urine Overflow incontinence Chronic superficial 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 Urticaria Unspecified urticaria Pruritus Unspecified pruritic disorder Annual physical exam Routine general medical examination at a [facility] care facility Chronic kidney disease, stage 3a (HCC) ([facility]) Class 2 severe obesity due to excess calories with serious comorbidity and body mass index (BMI) of 36.0 to 36.9 in adult ([facility]) Type 2 diabetes mellitus with other specified complication Hyperlipidemia, unspecified (CMS/HCC) Pressure ulcer of right heel, unstageable ([facility]) Type 2 diabetes mellitus with other skin ulcer (CODE) Paraplegia, unspecified Diabetes mellitus due to underlying condition with diabetic polyneuropathy ([facility]) documented in this encounter [facility] HealthcareEvaluation note* Diagnosis Type 2 diabetes mellitus [...] pruritic disorder Chronic kidney disease, stage 3a (CMS-HCC) Encounter for long-term (current) use of medications [...] exam Routine general medical examination at a [facility] care facility Chronic kidney disease, stage 3a (CMS-HCC) Class 2 severe obesity due to excess calories with serious comorbidity and body mass index (BMI) of 36.0 to 36.9 in adult ([facility] Type 2 diabetes mellitus with other specified complication (HCC) Hyperlipidemia, unspecified Pressure ulcer of right heel, unstageable ([facility]) Type 2 diabetes mellitus with other skin ulcer (CODE) (HCC) Paraplegia, unspecified (HCC) Diabetes mellitus due to underlying condition with diabetic polyneuropathy (HCC) Type 2 diabetes mellitus with hyperglycemia, without long-term current use of insulin (HCC) documented in this encounter [facility] HealthcareEvaluation note* Diagnosis Type 2 diabetes mellitus with hyperglycemia, without long-term current use of insulin ([facility])- Primary Dyslipidemia Other and unspecified hyperlipidemia Benign [...] disorder Chronic kidney disease, stage 3a ([facility]) Encounter for long-term (current) use of medications [...] facility Chronic kidney disease, stage 3a ([facility] Class 2 severe obesity due to excess calories with serious comorbidity and body mass index (BMI) of 36.0 to 36.9 in adult ([facility] Type 2 diabetes mellitus with other specified complication (HCC) Hyperlipidemia, unspecified Pressure ulcer of right heel, unstageable ([facility] Type 2 diabetes mellitus with other skin ulcer (CODE) (HCC) Paraplegia, unspecified (HCC) Diabetes mellitus due to underlying condition with diabetic polyneuropathy (HCC) Primary hypertension Unspecified essential hypertension Benign hypertension Essential hypertension, benign Type 2 diabetes mellitus with hyperglycemia, without long-term current use of insulin (HCC) Dyslipidemia Other and unspecified hyperlipidemia documented in this encounter [facility] HealthcareHospital Discharge instructions Additional Instructions DISCHARGE [...] operative site FOLLOW UP Phone numbers: Office [phone] [facility] Work Phone: Hospital Discharge instructions No data available for this section [facility] Hospital Discharge instructions Additional Instructions Wound/Ulcer Instructions/Orders Left Ischium: Dressing: Cleanse with Dakins or saline, saline on 4X4 gauze packing or kerlix, ABD, Kerlix, drawtex, Secure/wrap: Skin prep prior to adhesive [facility]: [facility] Work Phone: InstructionsNot on filedocumented in this encounter [facility] No data available for this section [facility] reason for referral (narrative)No reason for referral information availableK[facility] Work Phone: Summary Purpose Family [...] Agents on File Name Relationship Healthcare Agent [facility] Pradip Alloway Spouse Primary Decision Maker ([place]) Chief Complaint and Reason for Visit Chief [...] Fibula Osteomyelitis, Diabetes, Ulcerative Reason for Visit [id number] Foot ulcer with fat layer exposed 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 Cauda equina spinal cord injury Pressure ulcer of left buttock, stage 3 Chief Complaint Open Wound Left Fibula Osteomyelitis, Diabetes, Ulcerative Unknown Reason for Visit [id number] Foot ulcer with fat layer exposed Stage [...] EKG 12 Lead Angeles Nagy MD [address], [address] [place] [address] Referral ID Status Reason Start Date Expiration Date V isits Requested Visits Authorized [id number] Pending Review 06/22/2022 06/22/2023 1 1 Specialty Diagnoses / Procedures Referred By Contac t Referred To Contact Radiology Diagnoses Cauda equina syndrome (HCC) Neurogenic bladder Urinary retention Urinary incontinence without sensory awareness Procedures US RENAL COMPLETE Ashlee Erwin, ELEMENTARY SPECIAL EDUCATION TEACHER - IT INVESTMENT/PORTFOLIO MANAGER [address] [facility] [address] [place] [address] Referral ID Status Reason Start Date Expiration Date Visits Re quested Visits Authorized [id number] Open 09/18/2022 09/18/2023 1 1 Additional Source Comments (unrecognized sect ion and content) No Status Records FoundNo Status Records FoundNo Status Records FoundNo Status Records FoundNo Status Records FoundNo Status Records FoundNo Status Records Found INFORMATION SOURCE (unrecogn ized section and content) DATE CREATED AUTHOR 09/21/2017 [facility] DATE CREATED AUTHOR AUTHOR'S ORGANIZ ATION 04/08/2022 [facility] DATE CREATED AUTHOR AUTHOR'S ORGANIZ ATION 09/27/2022 [facility] DATE CREATED AUTHOR AUTHOR'S ORGANIZ ATION 10/22/2023 [facility] DATE CREATED AUTHOR AUTHOR'S ORGANIZ ATION 08/03/2024 [facility] EP[facility] DATE CREATED AUTHOR AUTHOR'S ORGANIZ ATION 12/06/2024 [facility] DATE CREATED AUTHOR AUTHOR'S ORGANIZ ATION 01/13/2025 Hayden Gonzalez [facility] Care Teams (unrecognized sec tion and content) [...] Active Cathy Brar MD Attending Provider Active Truck Manager Relationship Specialty Start Date End Date Fidel Abbott MD PCP - General 07/03/15 Truck Manager Relationship Specialty Start Date End Date Fidel Abbott MD PCP - General 07/03/15 Truck Manager Relationship Specialty Start Date End Date Fidel Abbott MD PCP - General 07/03/15 Truck Manager Relationship Specialty Start Date End Date Fidel Abbott MD PCP - General 07/03/15 Truck Manager Relationship Specialty Start Date End Date Fidel Abbott MD PCP - General 07/03/15 Truck Manager Relationship Specialty Start Date End Date Fidel Abbott MD PCP - General Family Medicine 12/10/22 Fidel Abbott MD [address] [place] [phone] PCP - [employer] 03/29/23 Truck Manager Relationship Specialty Start Date End Date Fidel Abbott MD PCP - General Family Medicine 12/10/22 Fidel Abbott MD [address] [place] [phone] PCP - [employer] 03/29/23 Truck Manager Relationship Specialty Start Date End Date Fidel Abbott MD [address] [place] [phone] PCP - [employer] 03/29/23 Fidel Abbott MD [address] [place] [phone] PCP - General [facility] Medicine 05/12/23 Team Status: Inactive Member Role [...] July 08, 2023 End: July 08, 2023 Truck Manager Relationship Specialty Start Date End Date Fidel Abbott MD PCP - General 12/28/16 Truck Manager Relationship Specialty Start Date End Date Fidel Abbott MD [address] [place] [phone] PCP - [employer] 02/26/23 Fidel Abbott MD [address] [place] [phone] PCP - General Family Medicine 11/18/23 Truck Manager Relationship Specialty Start Date End Date Fidel Abbott MD [address] [place] [phone] PCP - [employer] 02/26/23 Fidel Abbott MD [address] [place] [phone] PCP - [facility] 11/18/23 Team Status: Inactive Member Role [...] Provider Active S tart: February 08, 2024 Truck Manager Relationship Specialty Start Date End Date Fidel Abbott MD [address] [place] [phone] PCP - [employer] 02/26/23 Fidel Abbott MD [address] [place] [phone] PCP - General Family Medicine 11/18/23 Truck Manager Relationship Specialty Start Date End Date Fidel Abbott MD [address] [place] [phone] PCP - [employer] 02/26/23 Fidel Abbott MD [address] [place] [phone] PCP - General Family Medicine 11/18/23 Truck Manager Relationship Specialty Start Date End Date Fidel Abbott MD [address] [place] [phone] PCP - [employer] 02/26/23 Fidel Abbott MD [address] [place] [phone] PCP - General Family Medicine 11/18/23 Truck Manager Relationship Specialty Start Date End Date Fidel Abbott MD PCP - General 12/28/16 Truck Manager Relationship Specialty Start Date End Date Fidel Abbott MD PCP - General 12/28/16 Truck Manager Relationship Specialty Start Date End Date Fidel Abbott MD [address] [place] [phone] PCP - [employer] 02/26/23 Fidel Abbott MD [address] [place] [phone] PCP - General Family Medicine 11/18/23 Fidel Abbott MD [address] [place] [phone] PCP - [employer] 05/05/24 Truck Manager Relationship Specialty Start Date End Date Fidel Abbott MD [address] [place] [phone] PCP - [employer] 02/26/23 Fidel Abbott MD [address] [place] [phone] PCP - General Family Medicine 11/18/23 Fidel Abbott MD [address] [place] [phone] PCP - [employer] 05/05/24 Truck Manager Relationship Specialty Start Date End Date Fidel Abbott MD [address] [place] [phone] PCP - [employer] 02/26/23 Fidel Abbott MD [address] [place] [phone] PCP - General Family Medicine 11/18/23 Fidel Abbott MD [address] [place] [phone] PCP - [employer] 05/05/24 Truck Manager Relationship Specialty Start Date End Date Fidel Abbott MD [address] [place] [phone] PCP - General Family Medicine 11/18/23 Fidel Abbott MD [address] [place] [address] PCP - [employer] 05/05/24 Alvin [...] August 30, 2024 End: August 30, 2024 Truck Manager Relationship Specialty Start Date End Date Fidel Abbott MD [address] [place] [address] PCP - [facility] Medicine 11/18/23 Team Status: Inactive Member [...] October 02, 2024 End: October 02, 2024 Truck Manager Relationship Specialty Start Date End Date Fidel Abbott MD [address] [place] [phone] PCP - [facility] Family Medicine 11/18/23 Truck Manager Relationship Specialty Start Date End Date Fidel Abbott MD [address] [place] [address] PCP - General Family Medicine 11/18/23 Truck Manager Relationship Specialty Start Date End Date Fidel Abbott MD [address] [place] [address] PCP - General Family Medicine 11/18/23 Goals [...] kidney injury (HCC) Matias Garcia MD [address] [place] [address] [facility] [address] [place] [address] Referral ID Status Reason Start Date Expiration Date Visits Re quested Visits Authorized [id number] 1 1 Specialty Diagnoses / Procedures Referred By Farzaneh t Referred To Contact Radiology Diagnoses Cauda equina syndrome (HCC) Neurogenic bladder Urinary retention Urinary incontinence without sensory awareness Procedures US RENAL COMPLETE Ashlee Erwin, ELEMENTARY SPECIAL EDUCATION TEACHER - IT INVESTMENT/PORTFOLIO MANAGER [address] [facility] [address] [place] [address] Referral ID Status Reason Start Date Expiration Date Visits Re quested Visits Authorized [id number] Open 09/18/2022 09/18/2023 1 1 Reason Comments [...] Valdez RN) 0812 (MAR Hold - Provider: [facility] - Reason: Unreviewed Transfer Orders)0900 (Automatically Held - Provider: [facility])0959 ([facility] Unhold - Provider: Dragan Voss RN)1234 ([facility] atenolol (TENORMIN) tablet 100 mg 100 mg, Oral, DAILY, First dose on Wed06/23/22 at 0900, Until Discontinued 0907 (Given - Provider: Heri Valdez RN) 0723 (Given - Provider: Heri Valdez RN) 0812 (MAR Hold - Provider: [facility] [employer] - Reason: Unreviewed Transfer Orders)0900 (Automatically Held - Provider: [facility] [employer])0959 ([facility] Unhold - Provider: Dragan Voss RN)1233 (Given - Provider: [facility]) citalopram (CELEXA) tablet 40 mg 40 mg, Oral, DAILY, First dose on Wed06/23/22 at 0900, Until Discontinued 0907 (Given - Provider: Heri Valdez RN) 0723 (Given - Provider: Heri Valdez RN) 0812 (MAR Hold - Provider: [facility] [employer] - Reason: Unreviewed Transfer Orders)0900 (Automatically Held - Provider: [facility] [employer])0959 ([facility] Unhold - Provider: Dragan Voss RN)1235 (Given - Provider: [facility]) clindamycin (CLEOCIN) 600 mg in [...] - Provider: June Rocio)1320 (Stopped - Provider: Juneleif)2045 (Due - Provider: Linda Ibrahim [facility]) fenofibrate (TRIGLIDE) tablet 160 [...] (Held by provider - Provider: ESTELLE Katz IT INVESTMENT/PORTFOLIO MANAGER - Reason: Other)1600 (Automatically Held - Provider: Shelly Mondragon ELEMENTARY SPECIAL EDUCATION TEACHER - IT INVESTMENT/PORTFOLIO MANAGER) 0000 (Automatically Held - Provider: Shelly Mondragon ELEMENTARY SPECIAL EDUCATION TEACHER - IT INVESTMENT/PORTFOLIO MANAGER)0800 (Automatically Held - Provider: Shelly Mondragon, ELEMENTARY SPECIAL EDUCATION TEACHER - IT INVESTMENT/PORTFOLIO MANAGER)1600 (Automatically Held - Provider: Shelly Mondragon, ELEMENTARY SPECIAL EDUCATION TEACHER - IT INVESTMENT/PORTFOLIO MANAGER) 0000 (Automatically Held - Provider: Shelly Mondragon, ELEMENTARY SPECIAL EDUCATION TEACHER - IT INVESTMENT/PORTFOLIO MANAGER)0800 (Automatically Held - Provider: Shelly Mondragon, ELEMENTARY SPECIAL EDUCATION TEACHER - IT INVESTMENT/PORTFOLIO MANAGER)1600 (Automatically Held - Provider: Shelly Mondragon, ELEMENTARY SPECIAL EDUCATION TEACHER - IT INVESTMENT/PORTFOLIO MANAGER) multivitamin 1 tablet 1 tablet, Oral, DAILY, First dose on Wed06/25/22 at 0900, Until Discontinued 0724 (Given - Provider: Heri Valdez RN) 0812 (MAR Hold - Provider: [facility] [employer] - Reason: Unreviewed Transfer Orders)0900 (Automatically Held - Provider: [facility] [employer])0959 ([facility] Unhold - Provider: Dragan Voss RN)1235 [...] Heri Valdez RN - Reason: IV Fluid Infusing)2246 (Not Given - Provider: Panchito Crockett, RN - Reason: IV Fluid Infusing) 0812 ([facility] Hold - Provider: [facility] [employer] - Reason: Unreviewed Transfer Orders)0900 (Automatically Held - Provider: [facility] [employer])0959 ([facility] Unhold - Provider: Dragan Voss RN)2100 (Due) sodium hypochlorite (DAKINS) 0.125 % external solution Irrigation, DAILY, First dose on Wed06/23/22 at 1930, Use on the Curlex gauze dressings changed once that shift on the sacrococcygeal wound and buttock wounds 1618 (Given - Provider: Heri Vladez RN - Comment: bottle already in room) 1127 (Given - Provider: Heri Valdez RN) 0812 ([facility] Hold - Provider: [facility] Autohold - Reason: Unreviewed Transfer Orders)0900 (Automatically Held - Provider: [facility] Autohold)0959 ([facility] Unhold - Provider: Dragan Voss RN) Continuous Medication Order 06/24/2022 06/25/2022 06/26/2022 0.9 % sodium chloride infusion IntraVENous, at 75 mL/hr, CONTINUOUS, Starting on Wed06/22/22 at 2045 0020 (New Bag - Provider: Geneva Samayoa RN) 0812 ([facility] Hold - Provider: [facility] Autohold - Reason: Unreviewed Transfer Orders)0959 ([facility] Unhold - Provider: Dragan Voss RN)1340 [...] less into rate field of order. 0812 ([facility] Hold - Pro vider: [facility] [employer] - Reason: Unreviewed Transfer Orders)0959 ([facility] Unhold - Provider: Dragan Voss RN) 0.9 % sodium chloride infusion IntraVENous, at 240 mL/hr, Administer over 10 Minutes, PRN, blood administration, Starting on Wed06/24/22 at 0733, For 1 dose, For use in priming line prior to transfusion (prime via gravity) and flush line post transfusion ONLY. Discontinue once line has been cleared of remaining blood product. 0812 ([facility] - Pro vider: [facility] [employer] - Reason: Unreviewed Transfer Orders)0959 ([facility] Unhold - Provider: Dragan Voss RN) acetaminophen (TYLENOL) suppository 650 mg(Linked Group 1) 650 mg, Rectal, EVERY 6 HOURS PRN, Starting on Wed06/22/22 at 2017, Until Discontinued, Pain Mild (1-3), Fever, For temp greater than 100.4 F (38 C), Administer if oral route cannot be used. 0812 ([facility] - Pro vider: [facility] [employer] - Reason: Unreviewed Transfer Orders)0959 ([facility] Unhold - Provider: Dragan Voss RN) acetaminophen (TYLENOL) tablet 650 mg(Linked Group 1) 650 mg, Oral, EVERY 6 HOURS PRN, Starting on Wed06/22/22 at 2017, Until Discontinued, Pain Mild (1-3), Fever, For temp greater than 100.4 F (38 C), Maximum dose of acetaminophen is 4000 mg from all sources in 24 hours. 0812 ([facility] - Pro vider: [facility] [employer] - Reason: Unreviewed Transfer Orders)0959 ([facility] Unhold - Provider: Dragan Voss RN) ondansetron (ZOFRAN) injection 4 mg(Linked Group 2) 4 mg, IntraVENous, EVERY 6 HOURS PRN, Starting on Wed06/22/22 at 2017, Until Discontinued, Nausea, Vomiting, Administer if oral route cannot be used. 0812 ([facility] - Pro vider: [facility] [employer] - Reason: Unreviewed Transfer Orders)0959 ([facility] Unhold - Provider: Dragan Voss RN) ondansetron (ZOFRAN-ODT) disintegrating tablet 4 mg(Linked Group 2) 4 mg, Oral, EVERY 8 HOURS PRN, Starting on Wed06/22/22 at 2017, Until Discontinued, Nausea, Vomiting 0812 ([facility] Hold - Pro vider: [facility] [employer] - Reason: Unreviewed Transfer Orders)0959 ([facility] Unhold - Provider: Dragan Voss RN) polyethylene glycol (GLYCOLAX) packet 17 g 17 g, Oral, DAILY PRN, Starting on Wed06/22/22 at 2017, Until Discontinued, Constipation, First line therapy for constipation 0812 ([facility] Hold - Pro vider: [facility] [employer] - Reason: Unreviewed Transfer Orders)0959 ([facility] Unhold - Provider: Dragan Voss RN) sodium chloride flush 0.9 % injection 10 mL 10 mL, IntraVENous, PRN, Starting on Wed06/22/22 at 2017, Until Discontinued, Line Care, After every IV line use 0812 ([facility] Hold - Pro vider: [facility] [employer] - Reason: Unreviewed Transfer Orders)0959 ([facility] Unhold - Provider: Dragan Voss RN) [...] IntraVENous, EVERY 6 HOURS PRN, Starting on 3/27/23 at 2018, Until Discontinued, Nausea, Vomiting
Administer [...] BE BASED ON THE PRIMARY CLINICAL RECORDS. [employer] [facility] provides no warranty or guarantee of the accuracy or completeness of information in this document.
== END 2025-01-12 12:31 | disposition home or self-care (01) ==
LOC: WC 01-15 09:17
PROVIDERS: PCP Family Medicine; Visit Provider Podiatrist Foot & Ankle Surgery
DX: L97.813 Non-pressure chronic ulcer of other part of right lower leg with necrosis of muscle (principal); L89.893 Pressure ulcer of other site, stage 3; L89.613 Pressure ulcer of right heel, stage 3; L89.520 Pressure ulcer of left ankle, unstageable; L89.624 Pressure ulcer of left heel, stage 4
CPT/HCPCS: 97606

== ENCOUNTER 2025-01-24 10:14 | Outpatient (OUT) | payer BC, MEDICARE, SELFPAY ==
--- OUTSIDE RECORDS SUMMARY | 2025-01-24 10:17 | XMS_ITS | Clinical Summary ---
Author Organization [facility] Address [facility] [place] [id number] Care Team Providers Care Valuation Manager Name Role Phone Jameel Smith Primary Care Provider Unavailabl e Allergies No known active allergies Medications MedicationSigDispense QuantityRefillsLast FilledStart DateEnd DateStatus insulin glargine (LANTUS) 100 unit/mL SUBCUTANEOUS injection Indications:Paraplegia (HCC),Disturbance of skin sensationInject 10 Units subcutaneously daily at bedtime.Active doxycycline 100 mg ORAL tablet Indications:Paraplegia (HCC),Disturbance of skin sensationTake 100 mg by mouth twice daily.Active metFORMIN 500 mg ORAL tablet Indications:Paraplegia (HCC),Disturbance of skin sensationTake 500 mg by mouth twice daily with meals.Active naproxen 500 mg ORAL tablet Indications:Paraplegia (HCC),Disturbance of skin sensationTake 500 mg by mouth once daily.Active atenolol 100 mg ORAL tablet Indications:Paraplegia (HCC),Disturbance of skin sensationTake 100 mg by mouth once daily.Active tamsulosin (FLOMAX) 0.4 mg ORAL Cp24 Indications:Paraplegia (HCC),Disturbance of skin sensationTake 0.4 mg by mouth once daily.Active nitrofurantoin (MACRODANTIN) 50 mg ORAL capsule Indications:Paraplegia (HCC),Disturbance of skin sensationTake 50 mg by mouth four times daily.Active lisinopril 20 mg ORAL tablet Indications:Paraplegia (HCC),Disturbance of skin sensationTake 20 mg by mouth once daily.Active citalopram (CELEXA) 20 mg ORAL tablet Indications:Paraplegia (HCC),Disturbance of skin sensationTake 20 mg by mouth once daily.Active amLODIPine (NORVASC) 5 mg ORAL tablet Indications:Paraplegia (HCC),Disturbance of skin sensationTake 5 mg by mouth once daily.Active glimepiride 2 mg ORAL tablet Indications:Paraplegia (HCC),Disturbance of skin sensationTake 2 mg by mouth daily with breakfast.Active Social History Tobacco UseTypesPacks/DayYears UsedDateSmoking Tobacco: Never AssessedSex and Gender InformationValueDate RecordedSex Assigned at BirthNot on fileLegal Sex Male02/28/2012 10:01 AM ESTGender IdentityNot on fileSexual OrientationNot on file Last Filed Vital Signs Vital SignReadingTime TakenCommentsBlood Delrsvus988/6604 1:06 PM EDT Tudtt4941 1:06 PM EDTTemperature--Respiratory Rate--Oxygen Saturation-- Inhaled Oxygen Concentration--Weight--Height--Body Mass Index-- Plan of Treatment Health MaintenanceDue DateLast DoneCommentsAnxiety Bpevkdjqu98/11/1980Depression Zkuwzjhlv32/11/1980HIV Hltxkvbey49/11/1980Hepatitis C Wfyjrbsvb48/11/1980 DTaP,Tdap,Td Vaccine (1 - Tdap)1980Lipid Ubttpjvjr92/11/1997CT Lpkkvbaiqvvj46/11/2007Cologuard (FIT-DNA)07/07/20065141Iujxhhojhzm33/11/2007 Colorectal Cancer Bvztvdyra87/11/2007Diabetes Tztotjojl97/11/2007Fecal Occult Blood2006Prostate Cancer Screening Vnlgnetxun11/11/2007Sigmoidoscopy 2006Pneumococcal Vaccine: 50+ (1 of 1 - PCV)07/08/2011Shingrix Vaccine (1 of 2)07/08/2011Covid-19 Vaccine (1 - 2024- season)2024Influenza Vaccine (#1)2024RSV Vaccine (1 - 1-dose 75+ series)2036 Insurance Care Teams Team MemberRelationshipSpecialtyStart DateEnd Date Jameel Smith PCP - GeneralInternal Medicine07/01/11
--- OUTSIDE RECORDS SUMMARY | 2025-01-24 10:17 | XMS_ITS | Encounter Summary ---
Author Organization [facility] Address [address] [place] [address] Care Team Providers Care Slip Laster Name Role Phone Fidel Reis MD Unavailable Fidel Reis MD Primary Care Provider [phone] Fidel Reis MD Unavailable Alvin Gonzalez MA Unavailable [phone] Encounter Details DateTypeDepartmentCare Team (Latest Contact Info)Ukrnpeuojdp12/13/2024Clinisync Result Encounter [facility] External Department Unsolicited Provider, Generic External Data Social History Tobacco UseTypesPacks/DayYears UsedDateSmoking Tobacco: NeverSmokeless Tobacco: NeverAlcohol UseStandard Drinks/WeekCommentsNever0 (1 standard drink = 0.6 oz pure alcohol)B1300 Health LiteracyAnswerDate RecordedHow often do you need to have someone help you when you read instructions, pamphlets, or other written material from your doctor or pharmacy?Never10/17/2023Social Connection and Isolation PanelAnswerDate RecordedIn a typical week, how many times do you talk on the phone with family, friends, or neighbors?More than three times a week 10/17/2023How often do you get together with friends or relatives?More than three times a week10/17/2023How often do you attend pentecostal or zoroastrian services?Patient dggixass32/21/2024Do you belong to any clubs or organizations such as pentecostal groups, unions, fraternal or athletic groups, or school groups?No 10/17/2023How often do you attend meetings of the clubs or organizations you belong to?Never07/21/2024Are you , , , , never , or living with a partner?Jnjyetz4510/17/2023UDIT-CAnswerDate RecordedQ1: How often do you have a drink containing alcohol?Patient /21/2024Q2: How many drinks containing alcohol do you have on a typical day when you are drinking?Patient does not drink10/17/2023Q3: How often do you have six or more drinks on one occasion?Never10/17/2023Overall Financial Resource Strain (CARDIA) AnswerDate RecordedHow hard is it for you to pay for the very basics like food, housing, medical care, and heating?Not hard at all10/17/2023[facility] [place] [facility] Occup[facility] - Occupational Stress QuestionnaireAnswerDate RecordedDo you feel stress - tense, restless, nervous, or anxious, or unable to sleep at night because yourmind is troubled all the time - these days?Patient declined 10/17/2023Exercise Vital SignAnswerDate RecordedOn average, how many days per week do you engage in moderate to strenuous exercise (like a brisk walk)?Patient qwmvthap07/21/2024On average, how many minutes do you engage in exercise at this level?Patient jqokiyto23/21/2024Hunger Vital SignAnswerDate RecordedWithin the past 12 months, you worried that your food would run out before you got the money to buymore.Never true10/17/2023Within the past 12 months, the food you bought just didn't last and you didn't have money to get more.Never true 10/17/2023RAPARE - TransportationAnswerDate RecordedIn the past 12 months, has lack of transportation kept you from medical appointments or from getting medications?No10/17/2023In the past 12 months, has lack of transportation kept you from meetings, work, or from getting things needed for daily living?No 10/17/2023Housing Stability Vital SignAnswerDate RecordedIn the last 12 months, was there a time when you were not able to pay the mortgage or rent on time?No 10/17/2023In the past 12 months, how many times have you moved where you were living?t any time in the past 12 months, were you homeless or living in a [place] (including now)?No10/17/2023Sex and Gender InformationValueDate RecordedSex Assigned at BirthNot on fileLegal NzqZwyu6206/10/2022 7:28 PM EDT Gender IdentityNot on fileSexual OrientationNot on filedocumented as of this encounter Plan of Treatment Not on file documented as of this encounter Procedures Procedure NamePriorityDate/TimeAssociated DiagnosisCommentsECG 12-LEAD03/10/2024 10:37 AM EST documented in this encounter Results * ECG 12-LEAD (03/10/2024 10:37 AM EST)Anatomical RegionLateralityModalityOther Specimen (Source)Anatomical Location / LateralityCollection Method / Volume Collection TimeReceived Time03/10/2024 10:37 AM EST Narrative 03/10/2024 5:24 PM EST [facility] ?[address] ? [place] [address] ? Electrocardiograph Report ? Signed ? Patient: ALLOWAY,JOEL L ?MR#: [id number] ?? : 1960 ?Acct:[id number] ?? Age/Sex: 63 / M ?ADM Date: 03/10/24 ?? Loc: PST ? Attending Dr: Bubba Bahena D.P.M. ? Ordering Physician: Bubba Bahena D.P.M. ?? Date of Service: 03/10/24 ?? Procedure(s): ECG 12 lead ?? Accession Number(s): [id number] ? cc: ?[facility] ? Test Date: ?2024-03-10 ?? Pat Name: ? JOEL ALLOWAY ?Department: ? Room: ? - ?? Gender: ? Male ? Senior Instructional Designer: ? : ?1960 ? Requested By: BUBBA VIZCAINOANDER ?? Order Number: [id number] ?Reading MD: ?? AVELINO ??BALL ? Measurements ?? Intervals ?[place] ? Rate: ? 53 ? P: ?86 ?? IA: ? 179 ?QRS: ?8 ?? QRSD: ? 110 ?T: ?34 ?? QT: ? 451 ? QTc: ?425 ? Interpretive Statements ?? SINUS BRADYCARDIA ?? Compared to ECG 11/25/2022 10:12:24 ?? Sinus rhythm no longer present ?? Electronically Signed On 03-10-2024 17:24:37 EST by AVELINO ??BALL ? Dictated By: ?Avelino Castanon.Jose. ? Signed By: ?03/10/24 1724 ? DD/ 1037 ? TD/TT: ? Director Of Philanthropy: Procedure Note Radiology, Radiologist, MD - 03/10/[address] [address] Electrocardiograph Report Signed Patient: JOEL MIRANDA LMR#: [id number] : 1960cct:[id number] Age/Sex: 63 / MADM Date: 03/10/24 Loc: PST Attending Dr: Bubba Bahena D.P.M. Ordering Physician: Bubba Bahena D.P.M. Date of Service: 03/10/24 Procedure(s): ECG 12 lead Accession Number(s): [id number] cc: [facility] Test Date: 2024-03-10 Pat Name: JOEL MIRANDA Department: Room: - Gender: Male Senior Instructional Designer: : 1960 Requested By: BUBBA BAHENA Order Number: [id number] Reading MD: AVELINO CASTANON Measurements Intervals [place] Rate: 53 P: 86 IA: 179 QRS: 8 QRSD: 110 T: 34 QT: 451 QTc: 425 Interpretive Statements SINUS BRADYCARDIA Compared to ECG 11/25/2022 10:12:24 Sinus rhythm no longer present Electronically Signed On 03-10-2024 17:24:37 EST by AVELINO CASTANON Dictated By: Avelino Castanon D.O. Signed By:03/10/24 1724 DD/ 1037 TD/TT: Director Of Philanthropy: Authorizing ProviderResult TypeResult StatusGeneric External Data Provider [facility] IMAGINGFinal Result documented in this encounter Visit Diagnoses Not on filedocumented in this encounter Care Teams Team MemberRelationshipSpecialtyStart DateEnd Date Fidel Reis MD [address] [place] [address] PCP - [place] Rwbmnniiid74/1/234 Fidel Reis MD [address] [place] [address] PCP - GeneralFamily Medicine11/18/23 Fidel Reis MD [address] [place] [address] PCP - [facility] Alvin Gonzalez, REBEL [address] [place] [address] [facility] Hospitaldocumented as of this encounter
--- OUTSIDE RECORDS SUMMARY | 2025-01-24 10:17 | XMS_ITS | Clinical Summary ---
Author Organization [facility] Healthcare Address [address] [place] [address] Care Team Providers Care International Freight Forwarder Name Role Phone Fidel Reis MD Primary Care Provider [phone] Allergies Active AllergyReactionsCriticalityNoted MnjrSnsxbtsrKrwezimwbjry29/28/2023 Other Reaction(s): Kidney pain VancomycinOther,Qynvssx8306/21/2015 NEPHROTOXICITY States had kidney issues after taking Medications MedicationSigDispense QuantityRefillsLast FilledStart DateEnd DateStatus oxybutynin XL (Ditropan-XL) 15 MG 24 hr tablet Indications:Incontinence overflow, urineTake 1 tablet (15 mg) by mouth Daily 30 tablet 11005/01/7152696Active atenolol (Tenormin) 100 MG tablet Indications:Benign hypertensionTake 1 tablet by mouth once daily 30 tablet 5Active citalopram (CeleXA) 40 MG tablet Indications:Major depressive disorder, recurrent episode, mildTake 1 tablet by mouth once daily 30 tablet 5Active hydrOXYzine HCl (Atarax) 50 MG tablet Indications:PruritusTAKE 1 TABLET BY MOUTH 4 TIMES DAILY NEEDED FOR ITCHING 30 tablet 5Active glipiZIDE (Glucotrol) 10 MG tablet Indications:Type 2 diabetes mellitus with hyperglycemia, without long-term current use of insulin (HCC)Take 1 tablet (10 mg) by mouth in the morning and 1 tablet (10 mg) in the evening. Take before meals. 180 tablet 5Active amLODIPine (Norvasc) 10 MG tablet Indications:Primary hypertensionTake 1 tablet by mouth once daily 30 tablet 505Active lisinopril 20 MG tablet Indications:Benign hypertensionTake 1 tablet by mouth once daily 30 tablet 5Active SITagliptin (Januvia) 100 MG tablet Indications:Type 2 diabetes mellitus with hyperglycemia, without long-term current use of insulin (HCC)Take 1 tablet by mouth once daily 30 tablet 5Active atorvastatin (Lipitor) 40 MG tablet Indications:DyslipidemiaTAKE 1 TABLET BY MOUTH IN THE MORNING 30 tablet tive Active Problems ProblemNoted DateDiagnosed DateClass 2 severe obesity due to excess calories with serious comorbidity and body mass index (BMI) of36.0 to 36.9 in adult 07/31/2024 Assessment & Plan (07/31/2024 11:20 AM EDT): Weight loss indicated. Qpwcjrxyg04/24/2024 Assessment & Plan (01/20/2024 12:25 PM EDT): Unclear cause of hives. Treat with prednisone and use hydroxyzine PRN. Encounter for long-term (current) use of nhgadwyglke98/22/2024enign rsvtxhhztanz09/09/2024 Assessment & Plan (07/31/2024 11:18 AM EDT): BP controlled and monitor PRN. Assessment & Plan (04/06/2023 10:47 AM EST): BP controlled and monitor PRN. Cauda equina hcsfufva59/09/2024 Assessment & Plan (11/18/2023 2:11 PM EDT): Patient stable Ohpkrsdfri59/09/2024hronic superficial lvduqussx06/09/2024 Assessment & Plan (07/31/2024 11:18 AM EDT): Symptoms controlled with medication and continue. Assessment & Plan (04/06/2023 10:47 AM EST): Symptoms controlled with medication and continue. Eczema, nhktucdmlsf64/09/2024Major depressive disorder, recurrent episode, mild 04/06/2023 Assessment & Plan (07/31/2024 11:18 AM EDT): Mood controlled with celexa and continue. Assessment & Plan (04/06/2023 10:47 AM EST): Mood controlled with celexa and continue. Obstructive sleep apnea (adult) (pediatric)04/06/2023Incontinence overflow, urine04/06/2023 Assessment & Plan (07/31/2024 11:18 AM EDT): Symptoms tolerable with medication and continue. Assessment & Plan (04/06/2023 10:47 AM EST): Symptoms tolerable with medication and continue. Recurrent UTI04/06/2023Type 2 diabetes mellitus with hyperglycemia, without long-term current use of sujiskd1404/06/2023 Assessment & Plan (07/31/2024 11:18 AM EDT): Reports BS stable and due for A1C. Stick to ADA diet and limit carbs. Assessment & Plan (04/06/2023 10:48 AM EST): Reports BS stable and due for A1C. Stick to ADA diet and limit carbs. Criqjswwvacl46/09/2024hronic kidney disease, stage 3a04/06/2023 Resolved Problems ProblemNoted DateDiagnosed DateResolved GveeNsyxzkyc10 Assessment & Plan (11/18/2023 2:11 PM EDT): C/o itching and try hydroxyzine. Encounters DateTypeDepartmentCare CiwoKkcbzgnomsd37/27/2025Refill [facility] [address] [place] [address] Fidel Reis MD Primary hypertension ; Benign hypertension ; Type 2 diabetes mellitus with hyperglycemia, without long-term current use of insulin (HCC); Icmsauerymup39/06/2025Refill [facility] [address] [place] [address] Fidel Reis MD Type 2 diabetes mellitus with hyperglycemia, without long-term current use of insulin (HCC)from Last 3 Months Social History Tobacco UseTypesPacks/DayYears UsedDateSmoking Tobacco: NeverSmokeless Tobacco: Never Tobacco Cessation:Counseling Given: Yes Alcohol UseStandard Drinks/WeekCommentsNever0 (1 standard drink = 0.6 [...] times a week10/17/2023How often do you attend druze or sabianism services?Patient rzjgzypy70/21/2024o you belong to any clubs or organizations such as druze groups, unions, fraternal or athletic groups, or school groups?No 10/17/2023How often do you attend meetings of the clubs or organizations you belong to?Never10/17/2023re you , , , , never , or living with a partner?Ejeohnf4610/17/2023UDIT-CAnswerDate RecordedQ1: How often do you have a [...] and heating?Not hard at all10/17/2023[facility] [place] of Occupational Health - Occupational Stress QuestionnaireAnswerDate RecordedDo you feel stress - tense, restless, nervous, or anxious, or unable to sleep at night because yourmind is troubled all the time - these days?Patient declined 10/17/2023Exercise Vital SignAnswerDate RecordedOn average, how many days per week do you engage in moderate to strenuous exercise (like a brisk walk)?Patient fhazywfc36/21/2024On average, how many minutes do you engage in exercise at this level?Patient eyxqfuvj47/21/2024Hunger Vital SignAnswerDate RecordedWithin the past 12 months, [...] homeless or living in a assisted (including now)?No10/17/2023Sex and Gender InformationValueDate RecordedSex Assigned at BirthNot on fileLegal WsmUymp0206/10/2022 7:28 PM EDT Gender IdentityNot on fileSexual OrientationNot on file Last Filed Vital Signs Vital SignReadingTime TakenCommentsBlood Cpdegjrs635/70007/31/2024 10:49 AM EDT Mfjzt7439 10:49 AM QVJRxqozgvndip84.4 ??C (97.5 ??F)07/31/2024 10:49 AM EDTRespiratory Ldsk104807/31/2024 10:49 AM EDTOxygen Yetgqjjvsm98%07/31/2024 10:49 AM EDTInhaled Oxygen Concentration--Btuvuz223 kg (252 lb)06/10/2023 11:15 AM EDT Scnhdj972.3 cm (5' 11 )07/31/2024 10:49 AM EDTBody Mass Index36.16006/10/2023 11:15 AM EDT Plan of Treatment Not on file Insurance Care Teams Team MemberRelationshipSpecialtyStart DateEnd Date Fidel Reis MD [facility]
--- OUTSIDE RECORDS SUMMARY | 2025-01-24 10:17 | XMS_ITS | Encounter Summary ---
Author Organization [facility] Address [address] [place] [address] Care Team Providers Care Electrical Tester Battery Name Role Phone Fidel Reis MD Unavailable Fidel Reis MD Primary Care Provider [phone] Fidel Reis MD Unavailable Alvin Gonzalez MA Unavailable [phone] Encounter Details DateTypeDepartmentCare Team (Latest Contact Info)Ohtmchdvbxs41/09/2024Clinisync Result Encounter [facility] External Department Unsolicited Provider, [...] times a week10/17/2023How often do you attend bahai or denominational services?Patient /21/2024Do you belong to any clubs or organizations such as bahai groups, unions, fraternal or athletic groups, or school groups?No 10/17/2023How often do you attend meetings of the clubs or organizations you belong to?Never07/21/2024Are you , , , , never , or living with a partner?Bdqkuan7610/17/2023UDIT-CAnswerDate RecordedQ1: How often do you have a [...] housing, medical care, and heating?Not hard at all10/17/2023[facility] [employer] Occupational [employer] - Occupational Stress QuestionnaireAnswerDate RecordedDo you feel stress - tense, restless, nervous, or anxious, or unable to sleep at night because yourmind is troubled all the time - these days?Patient declined 10/17/2023Exercise Vital SignAnswerDate RecordedOn average, how many days per week do you engage in moderate to strenuous exercise (like a brisk walk)?Patient /21/2024On average, how many minutes do you engage in exercise at this level?Patient ddttztou96/21/2024Hunger Vital SignAnswerDate RecordedWithin the past 12 months, [...] homeless or living in a fpc (including now)?No10/17/2023Sex and Gender InformationValueDate RecordedSex Assigned at BirthNot on fileLegal IjhKrix7606/10/2022 7:28 PM EDT Gender IdentityNot on fileSexual OrientationNot on filedocumented as of this encounter Plan of Treatment Not on file documented as of this encounter Procedures Procedure NamePriorityDate/TimeAssociated DiagnosisCommentsSEGMENTAL BLOOD WZANJHFJ50/09/2024 2:13 PM EST documented in this encounter Results * SEGMENTAL BLOOD PRESSURE (03/06/2024 2:13 PM EST)Anatomical RegionLaterality ModalityRadiographic ImagingSpecimen (Source)Anatomical Location / Laterality Collection Method / VolumeCollection TimeReceived Time03/06/2024 2:13 PM EST Narrative 03/06/2024 2:16 PM EST [facility] ?[address] ? [place] [address] ?Vein Report ? Signed ? Patient: JOEL MIRANDA ?MR#: [id number] ?? : 1960 ?Acct:[id number] ?? Age/Sex: 63 / M ?ADM Date: 03/06/24 ?? Loc: VC ? Attending Dr: Jesus Bahena D.P.M. ? Ordering Physician: Jesus Bahena D.P.M. ?? Date of Service: 03/06/24 ?? Procedure(s): VC SEGMENTAL PRESSURES ?? Accession Number(s): [id number] ? cc: Jesus Bahena D.P.M.; Fidel Reis M.D. ? [facility] ? [address] ? [place] [address] ? Patient Name: ?? JOEL MIRANDA ? MRN: [id number] ? date: 1960 ?Sex: M ?? Assigned Patient Location: VC ?? Current Patient Location: VC ?? Accession/Order Number: [id number] ?? Exam Date: 03/06/2024 ??11:00 ?Report Date: 03/06/2024 ??14:13 ? At the request of: ?? JESUS ??GRETA ? Procedure: ??VC SEGMENTAL PRESSURES ? EXAM: VC SEGMENTAL PRESSURES ? HISTORY: R09.89 peripheral vascular disease ? COMPARISON: None ? TECHNIQUE: Resting ABIs and segmental limb pressures were obtained. ? FINDINGS: ABIs are nondiagnostic due to vascular rigidity. Bilateral ?? toe-brachial indices are normal. Based upon waveform analysis the likelihood ?? of ?? significant vascular disease is low. ? VEIN/VC SEGMENTAL PRESSURES ?? IMPRESSION: ? Nondiagnostic ABIs due to vascular rigidity. However, normal toe-brachial ?? indices and biphasic waveforms. The likelihood of significant vascular disease ? is low. ? Electronically authenticated by: Rafaela BUNN ??KYLE ?? Date: 03/06/2024 ??14:13 ? Dictated By: ?Rafaela Smith M.D. ? Signed By: ?03/06/24 1416 ? DD/ 1413 ? TD/TT: ? Bore Miner Operator: Procedure Note Radiology, Radiologist, - 03/06/2024 [place] [address] Vein Report Signed Patient: JOEL MIRANDA LMR#: [id number] : 1960cct:[id number] Age/Sex: 63 / MADM Date: 03/06/24 Loc: VC Attending Dr: Jesus Bahena D.P.M. Ordering Physician: Jesus Bahena D.P.M. Date of Service: 03/06/24 Procedure(s): VC SEGMENTAL PRESSURES Accession Number(s): [id number] cc: Jesus Bahena D.P.M.; Fidel Reis M.D. The [place] [id number] Patient Name: JOEL MIRANDA MRN: [id number] date: 1960 Sex: M Assigned Patient Location: VC Current Patient Location: VC Accession/Order Number: [id number] Exam Date: 03/06/2024 11:00 Report Date: 03/06/2024 [...] M.D. Signed By:03/06/24 1416 DD/ 1413 TD/TT: Bore Miner Operator: Authorizing ProviderResult TypeResult StatusGeneric External Data ProviderIMG XR PROCEDURESFinal Result documented in this encounter Visit Diagnoses Not on filedocumented in this encounter Care Teams Team MemberRelationshipSpecialtyStart DateEnd Date Fidel Reis MD [address] [place] [address] PCP - [place] Dzeqyuhhws99/1/234 Fidel Reis MD [address] [place] [address] PCP - GeneralFamily Medicine11/18/23 Fidel Reis MD [address] [place] [address] PCP - [facility] Alvin Gonzalez MA [address] [place] [address] Family Medicinedocumented as of this encounter
--- OUTSIDE RECORDS SUMMARY | 2025-01-24 10:17 | XMS_ITS | Encounter Summary ---
Author Organization [facility] Address [address] [place] [address] Care Team Providers Care Alcohol Law Enforcement Agent Name Role Phone Fidel Reis MD Unavailable Fidel Reis MD Primary Care Provider [phone] Fidel Reis MD Primary Care Provider [phone] Fidel Reis MD Primary Care Provider [phone] Fidel Reis MD Unavailable Alvin Gonzalez MA Unavailable [phone] Encounter Details DateTypeDepartmentCare Team (Latest Contact Info)Gqbixvdbgiu26/20/2024linisync Result Encounter [facility] External Department Unsolicited Provider, [...] times a week10/17/2023How often do you attend roman catholic or restorationism services?Patient vleoznzv94/21/2024Do you belong to any clubs or organizations such as roman catholic groups, unions, fraternal or athletic groups, or school groups?No 10/17/2023How often do you attend meetings of the clubs or organizations you belong to?Never10/17/2023re you , , , , never , or living with a partner?Hpihyfc5110/17/2023UDIT-CAnswerDate RecordedQ1: How often do you have a [...] housing, medical care, and heating?Not hard at all10/17/2023[facility] [place] of Occup[facility] Health - Occupational Stress QuestionnaireAnswerDate RecordedDo you feel stress - tense, restless, nervous, or anxious, or unable to sleep at night because yourmind is troubled all the time - these days?Patient declined 10/17/2023Exercise Vital SignAnswerDate RecordedOn average, how many days per week do you engage in moderate to strenuous exercise (like a brisk walk)?Patient suaeobpu23/21/2024On average, how many minutes do you engage in exercise at this level?Patient atbhimny34/21/2024Hunger Vital SignAnswerDate RecordedWithin the past 12 months, [...] homeless or living in a residential (including now)?No10/17/2023Sex and Gender InformationValueDate RecordedSex Assigned at BirthNot on fileLegal CawIjhh1406/10/2022 7:28 PM EDT Gender IdentityNot on fileSexual OrientationNot on filedocumented as of this encounter Functional Status * AUDIT-C ScoreAnswerDate of AssessmentAuthor-107 1:08 PM Jonelle Joyner * Q1: How often do you have a drink containing alcohol?AnswerDate of Assessment AuthorPatient ertufrlu30/21/2024 1:08 PM Jonelle Joyner * Q2: How many drinks containing alcohol do you have on a typical day when you are drinking?AnswerDate of AssessmentAuthorPatient does not drink10/17/2023 1:08 PM Jonelle Joyner * Q3: How often do you have six or more drinks on one occasion?AnswerDate of IutllaickuBoavctQpize26/21/2024 1:08 PM Jonelle Joyner documented as of this encounter Plan of Treatment Not on file documented as of this encounter Procedures Procedure NamePriorityDate/TimeAssociated DiagnosisCommentsMR ANKLE LT WO CON 05/18/2023 4:05 PM EST documented in this encounter Results * MR ANKLE LT WO CON (05/18/2023 4:05 PM EST)Anatomical RegionLateralityModality OtherSpecimen (Source)Anatomical Location / LateralityCollection Method / VolumeCollection TimeReceived Time05/18/2023 4:05 PM EST Narrative 05/18/2023 4:48 PM EST [facility] ?[address] ? [place] [address] ? Magnetic Resonance Report ? Signed ? Patient: JOEL MIRANDA ?MR#: [id number] ?? : 1960 ?Acct:[id number] ?? Age/Sex: 62 / M ?ADM Date: 05/18/23 ?? Loc: MRI ? Attending Dr: KASSIE MOFFETT ? Ordering Physician: KASSIE MOFFETT ?? Date of Service: 02/20/24 ?? Procedure(s): MR ankle LT wo con ?? Accession Number(s): [id number] ? cc: KASSIE MOFFETT ; Fidel Reis M.D. ? [facility] ? [address] ? [place] [address] ? Patient Name: ?? JOEL Evans ALLOWAY ? MRN: [facility]:[id number] ? date: 1960 ?Sex: M ?? Assigned Patient Location: MRI ?? Current Patient Location: MRI ?? Accession/Order Number: [id number] ?? Exam Date: 05/18/2023 ??10:51 ?Report Date: 05/18/2023 ??16:05 ? At the request of: ?? KASSIE ??BETINA ? Procedure: ??MR ankle LT wo con ? MR ankle LT wo con, 05/18/2023 10:51 AM EST ? INDICATION: Acute Osteomyelitis Of Left Fibula M65.162 ? COMPARISON: Prior x-ray of the left ankle dated 11/08/2022 ? TECHNIQUE: Multiplanar and multisequential MR images of the left ankle were ?? obtained without contrast . ? FINDINGS: ?? There is an ulcer at the level of the lateral malleolus extending to the ?? lateral aspect of fibula causing T1 and T2 prolongation with no definite bone ?? destruction most likely consistent with early osteomyelitis. No fluid ?? collection or abscess or fistula is noted. ? Diffuse circumferential soft tissue swelling is noted. ? Muscles and tendons: The flexor and extensor tendons and muscles are ?? unremarkable. No abnormality of the peroneal tendons is noted. Achilles tendon ? is unremarkable. There is fatty atrophy of the visualized muscles of anterior ?? and posterior and lateral compartments. ? Sinus Tarsi: No abnormality of sinus Tarsi is noted. ? Ligaments: No abnormality of the visualized portion of the ligaments is noted. ? There is normal intra-articular joint effusion. ? MR/MR ankle LT wo con ?? IMPRESSION: ? Finding suggesting of early osteomyelitis of the lateral fibula. No definite ?? fluid collection or abscess is noted. Diffuse circumferential soft tissue ?? swelling. Cellulitis cannot be totally excluded by imaging. ? Electronically authenticated by: ERIC ??PARVA ?? Date: 05/18/2023 ??16:05 ? Dictated By: ?Angy,Eric M.D. ? Signed By: ?05/18/23 1648 ? DD/ 1605 ? TD/TT: ? Furnace Repairer Helper: Procedure Note Radiology, Radiologist, - 05/18/2023 [place] [address] Magnetic Resonance Report Signed Patient: JOEL MIRANDA LMR#: [id number] : 1960cct:[id number] Age/Sex: 62 / MADM Date: 05/18/23 Loc: MRI Attending Dr: KASSIE MOFFETT Ordering Physician: KASSIE MOFFETT Date of Service: 05/18/23 Procedure(s): MR ankle LT wo con Accession Number(s): [id number] cc: KASSIE MOFFETT ; Fidel Reis M.D. The [place] [address] Patient Name: JOEL MIRANDA MRN: [id number] date: 1960 Sex: M Assigned Patient Location: MRI Current Patient Location: MRI Accession/Order Number: [id number] Exam Date: 05/18/2023 10:51 Report Date: 05/18/2023 [...] Dictated By: Eric Travis M.D. Signed By:05/18/23 8098 DD/ 1605 TD/TT: Furnace Repairer Helper: Authorizing ProviderResult TypeResult StatusGeneric External Data Provider [facility]INIS[facility]NC IMAGINGFinal Result documented in this encounter Visit Diagnoses Not on filedocumented in this encounter Care Teams Team MemberRelationshipSpecialtyStart DateEnd Date Fidel Reis MD [address] [place] [address] PCP - [facility] Fidel Reis MD [address] [place] [address] PCP - GeneralFamily Medicine Fidel Reis MD [address] [place] [address] PCP - GeneralFamily Medicine Fidel Reis MD [address] [place] [address] PCP - GeneralFamily Medicine11/18/23 Fidel Reis MD [address] [place] [address] PCP - [facility] Alvin Gonzalez MA [address] [place] [address] [facility] Centerdocumented as of this encounter
--- OUTSIDE RECORDS SUMMARY | 2025-01-24 10:17 | XMS_ITS | Clinical Summary ---
Author Organization [facility] Address [id number] [address] [place] [address] Care Team Providers Care Hat Measurer Name Role Phone Fidel Reis MD Primary Care Provider [phone] Allergies Active AllergyReactionsCriticalityNoted DateCommentsVancomycinOther (See Comments)01/01/2017 NEPHROTOXICITY Medications MedicationSigDispense QuantityRefillsLast FilledStart DateEnd DateStatus citalopram (CeleXA) 40 mg tablet Take 40 mg by mouth daily.09/22/2016Active atenolol (TENORMIN) 100 mg tablet Take 100 mg by mouth daily.06/29/2016Active amLODIPine (NORVASC) 10 mg tablet Take 10 mg by mouth daily.06/27/2016Active fenofibrate (TRICOR) 145 mg tablet Take 145 mg by mouth daily. DAILY AT NKGQUKP2909/22/2016Active rosuvastatin (CRESTOR) 20 mg tablet Take 20 mg by mouth daily. TAKE ONE TABLET BY MOUTH DAILY AT ZHNEOAI8906/07/2016 Active insulin glargine (LANTUS) 100 unit/mL injection Inject 40 Units under the skin 2 (two) times a day.10/14/2016Active lisinopril (PRINIVIL,ZESTRIL) 20 mg tablet Take 10 mg by mouth daily.01/01/2017Active insulin aspart (NovoLOG) 100 unit/mL insulin pen [...] - 14 UNITS 450 OR GREATER 16 UNITS05/29/2016Active Social History Tobacco UseTypesPacks/DayYears UsedDateSmoking Tobacco: NeverSmokeless Tobacco: Never Tobacco Cessation:Counseling Given: Not Answered Alcohol UseStandard Drinks/WeekCommentsNever0 (1 standard drink = 0.6 oz pure alcohol)ChildcareAnswerDate DwvmzcizOfarxadebXplvcwk69/12/2019EmploymentAnswer Date KpkzrlxxHzgsquohszVgjlmac88/12/2019Purpose - LifeAnswerDate RecordedPurpose and direction in homkSvqiivf11/25/2021ex and Gender InformationValueDate RecordedSex Assigned at BirthNot on fileLegal MfeFygv8111/01/2014 11:25 AM EDT Gender IdentityNot on fileSexual OrientationNot on file Last Filed Vital Signs Vital SignReadingTime TakenCommentsBlood Xmyqxonu683/6907 9:51 AM EDT Epqhv471810/11/2023 9:51 AM IIUXtboayjhsjk02.6 ??C (97.8 ??F)01/22/2017 3:27 PM EDTRespiratory Qjzt644610/11/2023 9:51 AM EDTOxygen Ilcixvneyv698%10/11/2023 9:51 AM EDTInhaled Oxygen Concentration--Qzfhrx034.1 kg (225 lb)10/11/2023 8:12 AM WJAIavpvc096.3 cm (5' 11 )10/11/2023 8:12 AM EDTBody Mass Index31.38010/11/2023 8:12 AM EDT Plan of Treatment Health MaintenanceDue DateLast DoneCommentsDepression Xbyrylyys88/11/1974 DTaP,Tdap and Td Vaccines (1 - Tdap)1980Zoster (Shingles) Vaccine (1 of 2) 07/08/2011dult BMI Hcifemgsu57/15/13222610/11/2023Tobacco Hiferiqkp52/15/2025 10/11/2023Influenza Ghlhlhb40/01/046083/, 04/10/2017, 01/01/2015, Additional history exists Medical Devices Not on file Insurance * Guarantor: Ganga Miranda LAccount TypeRelation to PatientDate of BirthPhone Billing AddressPersonal/SnfjomAkra57[birth year][address] [address] * Guarantor: Ganga Miranda TypeRelation to PatientDate of BirthPhone Billing AddressPersonal/PifwbeAbqi[birth year][address] [address] Care Teams Team MemberRelationshipSpecialtyStart DateEnd Date Fidel Reis MD [facility]12/28/16
== END 2025-01-24 10:15 | disposition home or self-care (01) ==
LOC: WC 10:14
PROVIDERS: PCP Family Medicine; Visit Provider Podiatrist Foot & Ankle Surgery
DX: L97.813 Non-pressure chronic ulcer of other part of right lower leg with necrosis of muscle (principal); L89.520 Pressure ulcer of left ankle, unstageable
CPT/HCPCS: 97606

== ENCOUNTER 2025-02-07 11:17 | Outpatient (OUT) | payer BC, MEDICARE, SELFPAY ==
--- OUTSIDE RECORDS SUMMARY | 2024-05-11 08:15 | XMS_ITS ---
Author Organization The [facility] in [place] Address [address] [place] [address] Care Team Providers Care Shop Tailor Name Role Phone Fidel Reis MD Primary Care Provider Unavailab Nina Griffin Unavailable [phone] REASON FOR VISIT MD Encounters Encounter Location Date Provider Diagnosis [facility] Oncology [address] [place] [address] 05/11/2024 Nina River Plan Of Treatment Next Appt Details Provider Name:NINA RIVER , 03/13/2025 10:30:00 AM, [address] [place], [address], Progress Notes * Ganga MIRANDA LDOB:1960 (64 yo M)Acc No.[id number]:05/11/2024 UNLOCKED PROGRESS NOTE Progress Notes Patient: Sameer LOPEZrey Cristina :?Nina River M.D.:1960???Age:63 Y ???Sex:MaleDate:05/11/2024Phone:[phone]:[address], [place], [place]Uzg:Fidel Reis MD Subjective: * Chief Complaints: * 1 . MD. * Medical History: Objective: * Vitals: Assessment: Plan: * Treatment: * * Electronic signature of Nina River MD, [id number] on 02/07/2025 at 11:22 AM ESTSign off status: PendingVisit Status:?CANC (Cancelled) * Provider: Geoff River M.D. Date: 0 05/11/2024 Generated for Printing/Faxing/eTransmitting on:?02/07/2025 11:22 AM EST
--- OUTSIDE RECORDS SUMMARY | 2024-05-16 06:00 | XMS_ITS ---
Author Organization The [facility] in [place] Address [address] [place] [address] Care Team Providers Care Tank Farm Gauger Name Role Phone Fidel Reis MD Primary Care Provider Unavailab Nina Griffin Unavailable [phone] REASON FOR VISIT MD Encounters Encounter Location Date Provider Diagnosis [facility] Oncology [address] [place] [address] 05/16/2024 Nina River Plan Of Treatment Next Appt Details Provider Name:NINA RIVER , 03/13/2025 10:30:00 AM, [address] [place], [address], Progress Notes * Ganga MIRANDA LDOB:1960 (64 yo M)Acc No.[id number]:05/16/2024 UNLOCKED PROGRESS NOTE Progress Notes Patient: Geoff CERVANTES Ganga Cristina :?Nina River M.D.:1960???Age:63 Y ???Sex:MaleDate:05/16/2024Phone:[phone]:[address], [place], [place]Iyp:Fidel Reis MD Subjective: * Chief Complaints: * 1 . MD. * Medical History: Objective: * Vitals: Assessment: Plan: * Treatment: * * Electronic signature of Nina River MD, [id number] on 02/07/2025 at 11:22 AM ESTSign off status: PendingVisit Status:?CANC (Cancelled) * Provider: Geoff River M.D. Date: 0 05/16/2024 Generated for Printing/Faxing/eTransmitting on:?02/07/2025 11:22 AM EST
--- OUTSIDE RECORDS SUMMARY | 2024-05-30 06:15 | XMS_ITS ---
Author Organization The [facility] in [place] Address [address] [place] [address] Care Team Providers Care Audiovisual Production Specialist Name Role Phone Fidel Reis MD Primary Care Provider Unavailab Nina Griffin Unavailable [phone] REASON FOR VISIT MD Encounters Encounter Location Date Provider Diagnosis The [facility] Oncology [address] [place] [address] 05/30/2024 Nina River Plan Of Treatment Next Appt Details Provider Name:NINA RIVER , 03/13/2025 10:30:00 AM, [address] [place], [address], Progress Notes * Ganga MIRANDA LDOB:1960 (64 yo M)Acc No.[id number]:05/30/2024 UNLOCKED PROGRESS NOTE Progress Notes Patient: Geoff CERVANTES Ganga Cristina :?Nina River M.D.:1960???Age:63 Y ???Sex:MaleDate:05/30/2024Phone:[phone]:[address], [place], [phone]:Fidel Reis MD Subjective: * Chief Complaints: * 1 . MD. * Medical History: Objective: * Vitals: Assessment: Plan: * Treatment: * * Electronic signature of Nina River MD, [id number] on 02/07/2025 at 11:23 AM ESTSign off status: PendingVisit Status:?VOICEMSG (Voice) * Provider: Geoff River M.D. Date: 0 05/30/2024 Generated for Printing/Faxing/eTransmitting on:?02/07/2025 11:23 AM EST
--- OUTSIDE RECORDS SUMMARY | 2024-08-01 08:00 | XMS_ITS ---
Author Organization [facility] in [place] Address [address] [place] [address] Care Team Providers Care Food And Beverage Associate Name Role Phone Fidel Reis MD Primary Care Provider Unavailab Nina Griffin Unavailable [phone] REASON FOR VISIT MD Encounters Encounter Location Date Provider Diagnosis [facility] [address] [place] [address] 08/01/2024 Nina River Plan Of Treatment Next Appt Details Provider Name:NINA RIVER , 03/13/2025 10:30:00 AM, [address] [place], [address], Progress Notes * Ganga MIRANDA LDOB:1960 (64 yo M)Acc No.[id number]:08/01/2024 UNLOCKED PROGRESS NOTE Progress Notes Patient: Geoff CERVANTES Ganga Cristina :?Nina River M.D.:1960???Age:64 Y ???Sex:MaleDate:08/01/2024Phone:[phone]:[address], [place], [id number]:Fidel Reis MD Subjective: * Chief Complaints: * 1 . MD. * Medical History: Objective: * Vitals: Assessment: Plan: * Treatment: * * Electronic signature of Nina River MD, [id number] on 02/07/2025 at 11:24 AM ESTSign off status: PendingVisit Status:?CANC (Cancelled) * Provider: Geoff River M.D. Date: 0 08/01/2024 Generated for Printing/Faxing/eTransmitting on:?02/07/2025 11:24 AM EST
--- OUTSIDE RECORDS SUMMARY | 2024-08-15 05:15 | XMS_ITS ---
Author Organization [facility] in [place] Address [address] [place] [address] Care Team Providers Care Traffic Coordinator Name Role Phone Fidel Reis MD Primary Care Provider Unavailab Nina Griffin Unavailable [phone] REASON FOR VISIT MD Encounters Encounter Location Date Provider Diagnosis [facility] [address] [place] [address] 08/15/2024 Nina River Plan Of Treatment Next Appt Details Provider Name:NINA RIVER , 03/13/2025 10:30:00 AM, [address] [place], [address], Progress Notes * Ganga MIRANDA LDOB:1960 (64 yo M)Acc No.[id number]:08/15/2024 UNLOCKED PROGRESS NOTE Progress Notes Patient: Sameer LOPEZrey Cristina :?Nina River M.D.:1960???Age:64 Y ???Sex:MaleDate:08/15/2024Phone:[phone]:[address], [place], [place]Qji:Fidel Reis MD Subjective: * Chief Complaints: * 1 . MD. * Medical History: Objective: * Vitals: Assessment: Plan: * Treatment: * * Electronic signature of Nina River MD, [id number] on 02/07/2025 at 11:23 AM ESTSign off status: PendingVisit Status:?CANC (Cancelled) * Provider: Geoff River M.D. Date: 0 08/15/2024 Generated for Printing/Faxing/eTransmitting on:?02/07/2025 11:23 AM EST
--- OUTSIDE RECORDS SUMMARY | 2024-08-29 05:30 | XMS_ITS ---
Author Organization [facility] in [place] Address [address] [place] [address] Care Team Providers Care Management Manager Name Role Phone Fidel Reis MD Primary Care Provider Unavailab Nina Griffin Unavailable [phone] REASON FOR VISIT MD Encounters Encounter Location Date Provider Diagnosis [facility] Oncology [address] [place] [address] 08/29/2024 Nina River Plan Of Treatment Next Appt Details Provider Name:NINA RIVER , 03/13/2025 10:30:00 AM, [address] [place], [address], Progress Notes * Ganga MIRANDA LDOB:1960 (64 yo M)Acc No.[id number]:08/29/2024 UNLOCKED PROGRESS NOTE Progress Notes Patient: Geoff CERVANTES Ganga Cristina :?Nina River M.D.:1960???Age:64 Y ???Sex:MaleDate:08/29/2024Phone:[phone]:[address], [place], [id number]:Fidel Reis MD Subjective: * Chief Complaints: * 1 . MD. * Medical History: Objective: * Vitals: Assessment: Plan: * Treatment: * * Electronic signature of Nina River MD, [id number] on 02/07/2025 at 11:23 AM ESTSign off status: PendingVisit Status:?CANC (Cancelled) * Provider: Geoff River M.D. Date: 0 08/29/2024 Generated for Printing/Faxing/eTransmitting on:?02/07/2025 11:23 AM EST
--- OUTSIDE RECORDS SUMMARY | 2024-09-26 06:45 | XMS_ITS ---
Author Organization The [facility] in [place] Address [address] [place] [address] Care Team Providers Care Registered Health Nurse Name Role Phone Fidel Reis MD Primary Care Provider Unavailab Nina Griffin Unavailable [phone] REASON FOR VISIT MD Encounters Encounter Location Date Provider Diagnosis [facility] Oncology [address] [place] [address] 09/26/2024 Nina River Plan Of Treatment Next Appt Details Provider Name:NINA RIVER , 03/13/2025 10:30:00 AM, [address] [place], [address], Progress Notes * Ganga MIRANDA LDOB:1960 (64 yo M)Acc No.[id number]:09/26/2024 UNLOCKED PROGRESS NOTE Progress Notes Patient: Geoff CERVANTESGanga :?Nina River M.D.:1960???Age:64 Y ???Sex:MaleDate:09/26/2024Phone:[phone]:[address], [place], [place]Prd:Fidel Reis MD Subjective: * Chief Complaints: * 1 . MD. * Medical History: Objective: * Vitals: Assessment: Plan: * Treatment: * * Electronic signature of Nina River MD, [id number] on 02/07/2025 at 11:24 AM ESTSign off status: PendingVisit Status:?VOICEMSG (Voice) * Provider: Geoff River M.D. Date: 0 09/26/2024 Generated for Printing/Faxing/eTransmitting on:?02/07/2025 11:24 AM EST
--- OUTSIDE RECORDS SUMMARY | 2024-09-26 07:15 | XMS_ITS ---
Author Organization The [facility] in [place] Address [address] [place] [address] Care Team Providers Care Evp Global Multimedia Sales Name Role Phone Smiley NAZARIO, Fidel Primary Care Provider Unavailab Nina Griffin Unavailable [phone] REASON FOR VISIT CL1.5 Encounters Encounter Location Date Provider Diagnosis [facility] On[facility] [address] [place] [address] 09/26/2024 Nina River Plan Of Treatment Next Appt Details Provider Name:NINA RIVER , 03/13/2025 10:30:00 AM, [address] [place], [address], Progress Notes * Ganga MIRANDA LDOB:1960 (64 yo M)Acc No.[id number]:09/26/2024 UNLOCKED PROGRESS NOTE Progress Note Patient: Geoff CERVANTES Ganga Evans :?Nina River M.D.:1960???Age:64 Y ???Sex:MaleDate:09/26/2024Phone:[phone]:[address], [address], [place], [place]Eib:Fidel Reis MD Subjective: * Chief Complaints: * 1 . CL1.5. * Medical History: Objective: * Vitals: Assessment: Plan: * Treatment: * * Electronic signature of Nina River MD, [id number] on 02/07/2025 at 11:22 AM ESTSign off status: PendingVisit Status:?PEN (Pending) * Provider: Geoff River M.D. Date: 09/26/2024 Generated for Printing/Faxing/eTransmitting on:?02/07/2025 11:22 AM EST
--- OUTSIDE RECORDS SUMMARY | 2024-11-28 06:15 | XMS_ITS ---
Author Organization [facility] in [place] Address [address] [place] [address] Care Team Providers Care Time Clock Repairer Name Role Phone Fidel Reis MD Primary Care Provider Unavailab Nina Griffin Unavailable [phone] REASON FOR VISIT MD Encounters Encounter Location Date Provider Diagnosis [facility] [address] [place] [id number] 11/28/2024 Nina River Plan Of Treatment Next Appt Details Provider Name:NINA RIVER , 03/13/2025 10:30:00 AM, [address] [place], [address], Progress Notes * Ganga MIRANDA LDOB:1960 (64 yo M)Acc No.[id number]:11/28/2024 UNLOCKED PROGRESS NOTE Progress Notes Patient: Geoff CERVANTES Ganga Evans :?Nina River M.D.:1960???Age:64 Y ???Sex:MaleDate:11/28/2024Phone:[phone]:[address], [place], [id number]:Fidel Reis MD Subjective: * Chief Complaints: * 1 . MD. * Medical History: Objective: * Vitals: Assessment: Plan: * Treatment: * * Electronic signature of Nina River MD, [id number] on 02/07/2025 at 11:25 AM ESTSign off status: PendingVisit Status:?CONFPHONE (Voice) * Provider: Geoff River M.D. Date: 0 11/28/2024 Generated for Printing/Faxing/eTransmitting on:?02/07/2025 11:25 AM EST
--- OUTSIDE RECORDS SUMMARY | 2025-02-01 06:15 | XMS_ITS | Continuity of Care Document ---
Author Organization [facility] Address [address] [place] [address] Phone Care Team Providers Care Car Wrecker Name Role Phone Fidel Reis MD Primary Care Provider Nina River MD Attending Provider Bubba Bahena DPM Attending Provider [phone] Klaus Brar MD Attending Provider Moisés Morelos MD Attending Provider Bubba Bahena DPM Referring Provider [phone] Fidel Reis MD Attending Provider [phone] Care Teams Patient Care Team Team Status: Active Member Role/Relationship Status Dates Fidel Reis MD Primary Care Provider Active Visit Care Team Team Status: Active Member Role/Relationship Status Dates Fidel Reis MD Primary Care Provider Active S tart: November 28, 2024 Alice Louis ProviderActiveStart: November 28, 2024 Visit Care Team Team Status: Active Member Role/Relationship Status Dates Fidel Reis MD Primary Care Provider Active S tart: January 01, 2025 CRISTIANA Xie ProviderActiveStart: January 01, 2025 Visit Care Team Team Status: Active Member Role/Relationship Status Dates Fidel Reis MD Primary Care Provider Active S tart: January 23, 2025 Alice Leavitt ProviderActiveStart: January 23, 2025 Visit Care Team Team Status: Inactive Member Role/Relationship Status Dates Fidel Reis MD Primary Care Provider Active S tart: January 25, 2025 End: January 25, 2025MicAlice Seals ProviderActiveStart: January 25, 2025 End: January 25, 2025PeBlackman DPM MSReferring ProviderActiveStart: January 25, 2025 End: January 25, 2025 Patient Care Team Team Status: Inactive Member Role/Relationship Status Dates Fidel Reis MD Primary Care Provider Active S tart: February 01, 2025 End: February 01, 2025MarAlice Patrick ProviderActiveStart: February 01, 2025 End: February 01, 2025 Chief Complaint and Reason for Visit Chief Complaint Admit Date Open Wound January 23, 2025 1 0:54am Ref: Dr. Bahena - Abscess L. Ankle O ctober 2024 1:03pm Established Patient February 01, 2025 9 :41am Reason for Visit Admit Date Diabetes mellitus due to und erlying condition with diabetic neuropathy, wit January 23, 2025 10:54am Pressure injury of left ischium, stage 4 January 23, 2025 10:54am Pressure injury of right ischium, stage 4 January 23, 2025 10:54am Stage IV pressure ulcer of sacral region January 23, 2025 10:54am Cauda equina spinal cord injury January 23, 2025 10:54am Open wound of both legs with complicatio n January 25, 2025 1:03pm Wound infection January 25, 2025 1 :03pm Type 2 diabetes mellitus wit h hyperglycemia, without long-term current use February 01, 2025 9:41am Allergies, Adverse Reactions, Alerts Allergen Type Severity Reaction Last Updated Verified Status Comments omadacycline Allergy Unknown Unknown Reaction February 01, 2025 10:46am Yes Active kidney pain vancomycin Adverse Reaction Severe Shut kidneys down February 01, 2025 10:46am Yes Active ferrous sulfateAdverse ReactionUnknownItchingNov2024 10:46amYesActive Social History Smoking Status Status Start Date End Date Date of Observa tion Never smoked tobacco (finding) October 30th, 2025 1:18pm Observation Status Observation Response Date of Response Legal Sex Male (finding) Sex Assigned At BirthMaleApril 1960 Family History Relationship Condition Age at Onset Recorded Date/T alverto father Autoimmune disorder Unknown DeceasedUnknownmotherMyocardial infarctionUnknownHypertensionUnknownDeceased UnknownHeart diseaseUnknown Problems Active Problems Problem Diagnosis/Recorded Date Onset Date Status C omments Pressure ulcer December 10, 2016 9:28am Unknown Acti ve Pressure ulcerSept2016 9:29amUnknownActivePressure ulcer of sacral region, stage 3A2017 11:33amUnknownActivePressure injury of right ischium, stage 4March 2022 12:13pmUnknownActivePressure ulcer of ischium December 16, 2017 9:44amUnknownActivePressure ulcer of left buttock, stage 4 May 07, 2020 11:36amUnknownActiveStage IV pressure ulcer of sacral region April 30, 2020 11:11amUnknownActiveStage IV pressure ulcer of sacral region November 05, 2020 10:16amUnknownActivePressure ulcer of right foot, stage 2 April 30, 2020 11:12amUnknownActiveStage IV pressure ulcer of right buttock May 07, 2020 11:36amUnknownActivePressure ulcer of right ischiumSept2017 9:44amUnknownActiveUnstageable pressure ulcer of right heelMay 2021 11:32amUnknownActivePressure ulcer of ankleFebruary 2020 11:12am UnknownActivePressure injury of left ischium, stage 4A2020 10:17am UnknownActiveBilateral lower extremity edemaJune 2024 1:18pmUnknownActive Osteomyelitis of fifth toe of left footNovember 2022 9:34pmUnknownActive Pressure ulcer of ischium, stage 4A2020 10:17amUnknownActiveOther acute postprocedural painJune 2021 11:50amUnknownActiveAcute hematogenous osteomyelitis, left ankle and footNovember 2022 1:44pmUnknownActive ParaplegiaFebruary 2020 6:31pmUnknownActiveInjury of cauda equina, subsequent encounterMarch 2017 12:46pmUnknownActiveCauda equina spinal cord injurySeptember 2016 9:28amUnknownActivePressure ulcer of left buttock, stage 3March 2017 12:45pmUnknownActiveDecubitus ulcer of right buttock, stage 2May 2017 12:06pmUnknownActiveWound infectionJuly 2024 10:16am UnknownActiveUrticariaNovember 2024 10:54amUnknownActivePainFebruary 2018 11:03amUnknownActiveObstructive sleep apnea (adult) (pediatric)January 30, 2025 10:53amUnknownActiveIncontinence overflow, urineNovember 2024 10:53amUnknownActiveChronic kidney disease, stage III (moderate)February 06, 2023 9:35pmUnknownActiveDyslipidemiaNovember 2024 10:52amUnknownActive Chronic ulcer of left 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November 2022 1:45pm UnknownActiveChronic ulcer of right foot with fat layer exposedNovember 2022 1:44pmUnknownActiveCKD (chronic kidney disease)June 30, 2018 9:36am UnknownActiveRecurrent UTINovember 2024 10:54amUnknownActiveEczema, dyshidroticNovember 2024 10:53amUnknownActiveMicrocytic anemiaNovember 2022 3:21pmUnknownActiveOpen wound of both legs with complicationJune 2024 1:18pmUnknownActiveChronic superficial gastritisNovember 2024 10:52am UnknownActiveDiabetes mellitus due to underlying condition with diabetic neuropathy, with long-term current use of insulinNovember 2022 1:45pm UnknownActiveType 2 diabetes mellitus with hyperglycemia, without long-term current use of insulinNovember 2024 10:54amUnknownActiveMajor depressive disorder, recurrent episode, mildNovember 2024 10:53amUnknownActivePAD (peripheral artery disease)February 07, 2023 3:21pmUnknownActivePressure ulcer of sacral regionMarch 2017 12:42pmUnknownActiveDiabetic ulcer of foot associated with diabetes mellitus due to underlying condition, limited to jr akdown of skiny 2018 9:45amUnknownActiveDiabetic ulcer of foot associated with diabetes mellitus due to underlying condition, limited to breakdown of skin July 28, 2018 9:46amUnknownActiveDiabetic ulcer of foot associated with diabetes mellitus due to underlying condition, limited to breakdown of skinMay 2018 9:46amUnknownActiveFoot ulcer with fat layer exposedAugust 2022 11:09am UnknownActiveChronic kidney disease, stage 3aNovember 2024 10:52amUnknown ActiveRight hip painNovember 2021 11:10amUnknownActiveCauda equina compressionMay 2018 9:54amUnknownActiveSacral painJune 2022 10:43am UnknownActiveHTN (hypertension)July 28, 2018 9:54amUnknownActived/t Vancomycin use affected kidneysObesitySeptember 2016 9:28amUnknownActiveCellulitis of left footNovember 2022 9:35pmUnknownActiveInactive/Resolved Problems Problem Diagnosis/Recorded Date Onset Date Status C omments Pressure ulcer of left hip, stage 3 November 18, 2017 9:39am Unknown Resolved Pressure ulcer of right hip, stage 3Augu2017 9:38amUnknownResolved DiabetesMay 2018 9:54amUnknownResolvedCellulitisDecember 2018 11:50am UnknownResolved Medications Medication Status Dose Units Route Directions Qty Days Refills S tart Date Stop Date End Date Reason(s) Instructions Adherence Nystatin 100,000 unit/mL suspension Discontinued 5 ML PO Four time s daily 140 7 0 December 26, 2024 11:00pm January 25, 2025 12:18pmswish and swallowAtenolol 100 mg FivuemOahxrh769MIPN Every morningAugust 2017 11:00pmHTNComplies with drug therapyHydrocodone- Acetaminophen 5-325 mg qzxgxeUnzeywuejzui6OQFQWP4A as needed for glsx6378Xoxjaj 2017August 2017 11:00pmAugust 2017 11:01pmPressure ulcer of sacral region, stage 3Amoxicillin-Pot Clavulanate (Augmentin) 875-125 mg Tablet Daeklltdosxs0NZSJJYgxos dailyFebruary 2020 12:00amFebruary 2020 6:39pm Hydrocodone-Acetaminophen 5-325 mg klonnjQpumxsvrbhuo2MNFVWX1S as needed for euwj3417Gebe 2021June 2022 10:16amOther acute postprocedural pain Other acute postprocedural painHydrocodone-Acetaminophen 5-325 mg tablet Fbeoleizzlve2OOFUBM8O as needed for euif1587Wudv 2022November 2022 9:43pmSacral back pain Sacrococcygeal disorders, not elsewhere classifiedFerrous Sulfate 325 mg (65 mg iron) dscbeyWhajnzxjjats681NHWBMohioPdkw 2022 11:00pmFebruary 2023 11:25amLevofloxacin 500 mg tquvsrBzdhziujpipb262WUSIUmpmiTufjldrxo 2022 11:00pmNovember 2022 3:16pmAmoxicillin-Pot Clavulanate 500-125 mg tablet Tqzcvbqjsbds9QWTMJT20QPsnokvgbp 2022 11:00pmNovember 2022 3:16pm Atorvastatin 40 mg isxmlhDqhzqc31FOKKYnpck morningFebruary 2023 12:00am Complies with drug therapyAmlodipineDiscontinuedSeptember 2016 11:00pm December 08, 2016 1:50pmLisinopril 10 mg DlqclnXfowopoeethz23GUDBJxgdn morningSeptember 2016 11:00pmNovember 2024 10:58amHTNCitalopram (Celexa) 40 mg ZkruqcOxljxl75EQEGSfuyd morningSeptember 2016 11:00pm DepressionComplies with drug therapyBactrimDiscontinuedSeptember 2016 11:00pmSeptember 2016 1:50pmRosuvastatin (Crestor) 20 mg Tablet Kyjxogblljjk34NENLZrivdPogumijug 2016 11:00pmDecember 2018 11:03am HyperlipidemiaSodium Hypochlorite (Dakin's Solution) 0.25 % SolutionDiscontinued 1IRRIGTOPICALDailySeptember 2016 11:00pmAugust 2017 10:29am Fenofibrate 150 mg JbgxlodPljhvjnyupfg445BEPHQiehx at bedtimeSept2016 11:00pmAugust 2020 10:09amHyperlipidemiaInsulin Aspart U-100 (Novolog) 100 unit/mL ZmwlevhjJhusrsamlguo1OKVSTRREDZOEEGOC TIMES DAILY WITH MEALS Protocol: *NOT APPROPRIATE TO USE SCALE IF LESS THAN 3 HOURS SINCE PREVIOUS MEAL AND SCALE DOSE* Condition: Corrective Scale #1 (TDI <=25) Condition: Dose/Route: Instructions: Condition: Fingerstick Blood Glucose Dose/Route: Insulin Units Condition: 150-199 mg/dl Dose/Route: 1 unit Condition: 200-249 mg/dl Dose/Route: 2 unit Condition: 250-299 mg/dl Dose/Route: 3 unit Condition: 300-349 mg/dl Dose/Route: 4 unit Condition: 350-400 mg/dl Dose/Route: 5 unit Condition: greater than 400 mg/dl Dose/Route: 6 unit Instructions: Call ProviderSept2016 11:00pmFebruary 2018 11:36amDMPatient not sure of actual corrective scale but felt this was correct Please contact the information source for Protocol details.Insulin Glargine (Lantus) 100 unit/mL JvsspzfpIromyraohfhy64IAGXCIKLJFUEkxct dailySept2016 11:00pmJune 2022 10:16amDMAmlodipine 10 mg EbgdnkMgosef54TSTCNnlxy morningSept2016 11:00pmHTNComplies with drug therapyGentamicin 0.1 % gudxqqrrHxrgvlsgvust8AOYYLLRQCEZSOBctpg350Zfomxmt 2017 12:00amAugust 2017 10:29amapply to sacral ulcer dailyDicloxacillin 500 mg CapsuleDiscontinued 500MGPOThree times dailyMarch 2017 12:00amMay 2017 9:21am Sulfamethoxazole-Trimethoprim (Bactrim Ds) 800-160 mg NktjfiKshvbdziervq1HZBYF Twice dailyMarch 2017 11:00pmMay 2017 9:21amSodium Hypochlorite (Dakin's Solution) 0.25 % goydpjexDtawcfkcyyop7LTRGMVANZARPKAtgbo9328Tvuj 2017 11:00pmAugust 2017 1:58pmAmoxicillin-Pot Clavulanate (Augmentin) 875- 125 mg bbudexTdmvoosipcss1QHKKNDkuwl gmqzc70571Xncw 2017 11:00pmJuly 2017 11:00pmJuly 2017 11:01pmGentamicin 0.1 % yugxzskaHtopavvprbui9QNIOTK LCJKZEKCzbdn659Ojpdeg 2017 11:00pmFebruary 2018 11:36amapply to ulcers as directedCephalexin 500 mg UulgvhqJhvarblghmgr697IDFXPhihw times daily November 29, 2017 11:00pmSeptember 2017 9:19qsw81 days as ordered per Dr. Diazulfamethoxazole-Trimethoprim (Bactrim Ds) 800-160 mg Tablet Bqtdedavdyun9JXYIRAwwrrUvaqbip 2018 12:00amAugust 2021 10:49am Insulin Lispro (Humalog Kwikpen Insulin) 100 unit/mL Insulin PenDiscontinued0 .ROUTE.COMPLEXFebruary 2018 12:00amJune 2022 10:16amSLIDING SCALE Glipizide 10 mg EhkbttPeerlo23RHVYLhtdm dailyApril 2018 11:00pmComplies with drug therapyClindamycin Hcl 150 mg CapsuleDiscontinuedMay 2018 11:00pm November 17, 2018 9:14amSilver Sulfadiazine (Silvadene) 1 % creamDiscontinued1 OYLNPFZOBMKPZTvzso5560Pjof 2018 11:00pmDecember 2018 11:03amapply a 1.5 mm thicknessBetamethasone Valerate 0.1 % vjtngumoOaqmqfuhsqrh0IWSHHBLIVELZY Daily as needed for skin aoufwkfnle463Lcygnu 22nd, 2019 9:49amDecember 2018 11:03amuse for 2 wks on and 1 wk off to affected areaOxybutynin Chloride 10 mg Tablet Extended Release 71weQzirziztnfxa63SJEWZprttVlxzacoo 26th, 2019 12:00amNovember 2022 7:56amDoxycycline Hyclate 100 mg capsuleDiscontinued 100MGPOTwice stcxu30244Uurslbcm 26th, 2019 12:00amOctober 2019 10:08am Fenofibrate Nanocrystallized 145 mg xfhkcwDliolxheavqi539FXVZEnfid at bedtime November 18, 2020 11:00pmNovember 2022 3:16pmSitagliptin Phosphate (Januvia) 100 mg ehmyleTvbzdx325ZDVKGnxqh morningJuly 28, 2021 11:00pmComplies with drug therapyLevofloxacin 750 mg RxfjzfLpdlyjveskua514FRYMKmwlgOayx 2021 11:00pmAugust 2021 10:49amx6 weeks, Called to pharmacy 09/09/2021 Oxybutynin Chloride 15 mg tablet extended release 73nrLctgywirokgo05LZIRDadyz February 07, 2023 12:00[facility] [place] [facility] 20[facility] 10:47amTriamcinolone Acetonide 0.5 % creamDiscontinued0.5APPLICTOPICALThree times dailyFebruary 07, 2023 12:00am May 04, 2023 11:25amOxybutynin Chloride 5 mg Tablet Extended Release 24hr Spnnaajqwusq67LMYQJffsh38409Ojzbdker 18th, 2023 12:00amJuly 2024 9:53amOn Hold: not takingLevofloxacin 750 mg MtsqlzHqhixtvxcrpz810CNAWLgskd02Kcrsnqlo 18th, 2023 12:00amFebruary 2023 11:23amFenofibrate Nanocrystallized 145 mg LcfqvtFquyjbosicit741TBMMDvepa at cjqleil89Amrnutwy 2022 12:00amJune 2024 11:16amLevofloxacin 750 mg otdaceQxwxelcurwzo052IZTZRihje965Zdju 2024 11:00pmNov2024 10:47amLocal infection of wound Other injury of unspecified body region, initial encounter Local infection of the skin and subcutaneous tissue, unspecifiedHydrocodone- Acetaminophen 5-325 mg azdklwWunionuxisyr6GIENWC3Y as needed for ozrq1817Onhr 2024October 2024 12:18pmOther acute postprocedural pain Other acute postprocedural painHydroxyzine Hcl 50 mg rxeihzGgzlejxsqnuo57UKUR Daily at bedtimeJune 2024 11:00pmNov2024 10:59amHydroxyzine Hcl 50 mg rwptlsVzprcu60GANGGgcw times daily as needed for itchingJanuary 30, 2025 10:58amComplies with drug therapyLisinopril 20 mg qztxraTlfqpl49ASHPEeoxk January 30, 2025 12:00amComplies with drug therapy Immunizations Immunization Event Date Not Given Reason Dose Number Clinical Lab Scientist Lot Number Reason(s) Given Vaccine Information Statement (VIS) Detail Administration Location Quadrivalent Influenza February 11, [address] [facility] Medical Equipment Device Date Implanted Device Details EPIFIX MESH SHEET 4X4.5CM June 04, 2023 Collagen wound matrix dressingMarch 2023UDI: ()[id number] Issuing Agency: [facility] Device Id: [id number] Expiration Date: 2025-03-28 Lot Number: [id number] wound matrix dressingMarch 2023UDI: ()[id number] Issuing Agency: [facility] Device Id: [id number] Expiration Date: 2025-04-28 Lot Number: [id number] wound matrix dressingNovember 2022UDI: ()[id number] Issuing Agency: [facility] Device Id: [id number] Expiration Date: 2024-11-26 Lot Number: [id number] Relevant Diagnostic Tests and/or Laboratory Data Laboratory Results Test Collection Date/Time Result Date/Time Result Interpretation Reference Range Result Comment Performing Site Ferritin November 28, 2024 8:39am November 28, 2024 8:39am 898.0 ng/mL Above high normal 26.0-388.0 Iron SaturationSept2024 8:39amSept2024 8:39am21.1 %C- Reactive Protein, QuantitativeSe2024 8:39amSept2024 8:39am11.73 mg/dLAbove high normal<=0.50Anion GapSept2024 8:39am November 28, 2024 8:39am12.2Erythrocyte Sedimentation RateS2024 8:39amSept2024 8:58ny899 mm/hrAbove high normal<=20Basophils # (Auto) November 28, 2024 8:39amSept2024 8:39am0.1 10 3/uL0.0-0.1Basophils # (Auto)January 01, 2025 10:07amOctober 2024 10:07am0.0 10 3/uL0.0-0.1 [facility] 2024 10:07amOctober 2024 10:07am15.2Iron Level November 28, 2024 8:39amSept2024 8:39am24.0 ug/dLBelow low normal 65.0-175.0BUN/Creatinine RatioSept2024 8:39amSept2024 8:39am13.4Basophils (%) (Auto)November 28, 2024 8:39amSept2024 8:39am0.5 %0.2-2.0Basophils (%) (Auto)January 01, 2025 10:07amOctober 2024 10:07am0.2 %0.2-2.0BUN/Creatinine RatioOctober 2024 10:07amOctober 2024 10:07am19.8Total Iron Binding CapacitySept2024 8:39amSeptember 2024 8:15ld437.0 ug/dLBelow low ityhys049.0-450.0Blood Urea Nitrogen November 28, 2024 8:39amSept2024 8:39am22.0 mg/dLAbove high normal 7.0-18.0Eosinophils # (Auto)November 28, 2024 8:39amSept2024 8:39am 1.3 10 3/uLAbove high normal0.0-0.7Eosinophils # (Auto)January 01, 2025 10:07am January 01, 2025 10:07am0.9 10 3/uLAbove high normal0.0-0.7Blood Urea Nitrogen January 01, 2025 10:07amOctober 2024 10:07am47.0 mg/dLAbove high normal 7.0-18.0Calcium LevelSept2024 8:39amSeptember 2024 8:39am8.3 mg/dLBelow low normal8.5-10.1Eosinophils (%) (Auto)November 28, 2024 8:39am November 28, 2024 8:39am10.1 %Above high normal0.9-7.0Eosinophils (%) (Auto) January 01, 2025 10:07amOctober 2024 10:07am6.8 %0.9-7.0Calcium Level January 01, 2025 10:07amOctober 2024 10:07am8.5 mg/dL8.5-10.1Chloride LevelSept2024 8:39amSept2024 8:46sv287 mmol/L98-107 HematocritSept2024 8:39amSept2024 8:39am25.0 %Below low advqjh11.0-54.0HematocritOctober 2024 10:07amOctober 2024 10:07am23.8 %Below lower panic .0-54.0RESULTS CALLED TO Dr. BahenaChloride Level January 01, 2025 10:07amOctober 2024 10:11pj283 mmol/M50-499Yirsmy Dioxide LevelSeptember 2024 8:39amSeptember 2024 8:39am25.4 mmol/L21.0-32.0 HemoglobinSept2024 8:39amSeptember 2024 8:39am8.0 g/dLBelow low yxgtdc49.0-18.0HemoglobinOctober 2024 10:07amOctober 2024 10:07am7.2 g/dLBelow low uljude53.0-18.0Carbon Dioxide LevelOctober 2024 10:07am January 01, 2025 10:07am22.8 mmol/L21.0-32.0CreatinineSept2024 8:39amSeptember 2024 8:39am1.64 mg/dLAbove high normal0.70-1.30Immature Granulocyte # (Auto)November 28, 2024 8:39amSeptember 2024 8:39am0.05 10 3/uLAbove high normal0.00-0.03Immature Granulocyte # (Auto)January 01, 2025 10:07amOctober 2024 10:07am0.12 10 3/uLAbove high normal0.00-0.03Creatinine January 01, 2025 10:07amOctober 2024 10:07am2.37 mg/dLAbove high normal 0.70-1.30Estimated GFR ()November 28, 2024 8:39amSept2024 8:34ju82Jxtfm low normal>=60 mL/min/1.73m 2Immature Granulocyte % (Auto)November 28, 2024 8:39amSeptember 2024 8:39am0.4 %0.0-0.5Immature Granulocyte % (Auto)January 01, 2025 10:07amOctober 2024 10:07am0.9 %Above high normal0.0-0.5Estimated GFR ()January 01, 2025 10:07am January 01, 2025 10:23hh75Kdbuq low normal>=60 mL/min/1.73m 2Estimated GFR (Non- AmericanSept2024 8:39amSeptember 2024 8:66fu61Kgrkm low normal>=60 mL/min/1.73m 2Lymphocytes # (Auto)November 28, 2024 8:39am November 28, 2024 8:39am1.5 10 3/uL1.2-3.8Lymphocytes # (Auto)January 01, 2025 10:07amOctober 2024 10:07am1.4 10 3/uL1.2-3.8Estimated GFR (Non- AmericanOctober 2024 10:07amOctober 2024 10:72ck48Mtdkm low normal>=60 mL/min/1.73m 2Glucose LevelSeptember 2024 8:39amSeptember 2024 8:91ce632 mg/dLAbove high qwagyk16-057Mqezxcokivp (%) (Auto)November 28, 2024 8:39amSeptember 2024 8:39am12.1 %Below low ncbpza42.5-60.0Lymphocytes (%) (Auto)January 01, 2025 10:07amOctober 2024 10:07am10.8 %Below low .5-60.0Glucose LevelOctober 2024 10:07amOctober 2024 10:07am 194 mg/dLAbove high vsogkh56-035Kpwunwkor LevelSeptember 2024 8:39am November 28, 2024 8:39am3.6 mmol/L3.5-5.1Mean Corpuscular HemoglobinSeptember 2024 8:39amSeptember 2024 8:39am26.1 pg25.9-34.0Mean Corpuscular HemoglobinOctober 2024 10:07amOctober 2024 10:07am24.9 pgBelow low ojjysf58.9-34.0Potassium LevelOctober 2024 10:07amOctober 2024 10:07am 5.0 mmol/L3.5-5.1Sodium LevelSeptember 2024 8:39amSeptember 2024 8:11vd094 mmol/M655-306Bzsd Corpuscular Hemoglobin ConcentSeptember 2024 8:39amSeptember 2024 8:39am32.0 g/dL29.9-35.2Mean Corpuscular Hemoglobin ConcentOctober 2024 10:07amOctober 2024 10:07am30.3 g/dL29.9-35.2 Sodium LevelOctober 2024 10:07amOctober 2024 10:75zk321 mmol/B232-322 Mean Corpuscular VolumeSeptember 2024 8:39amSeptember 2024 8:39am81.4 fL80.0-94.0Mean Corpuscular VolumeOctober 2024 10:07amOctober 2024 10:07am82.4 fL80.0-94.0Monocytes # (Auto)November 28, 2024 8:39amSeptember 2024 8:39am1.0 10 3/uLAbove high normal0.3-0.8Monocytes # (Auto)January 01, 2025 10:07amOctober 2024 10:07am1.1 10 3/uLAbove high normal0.3-0.8 Monocytes (%) (Auto)November 28, 2024 8:39amSeptember 2024 8:39am7.7 % 1.7-12.0Monocytes (%) (Auto)January 01, 2025 10:07amOctober 2024 10:07am 8.1 %1.7-12.0Mean Platelet VolumeSeptember 2024 8:39amSeptember 2024 8:39am9.0 fLBelow low normal9.5-13.5Mean Platelet VolumeOctober 2024 10:07amOctober 2024 10:07am8.7 fLBelow low normal9.5-13.5Neutrophils # (Auto)November 28, 2024 8:39amSeptember 2024 8:39am8.6 10 3/uLAbove high normal1.4-6.5Neutrophils # (Auto)January 01, 2025 10:07amOctober 2024 10:07am9.6 10 3/uLAbove high normal1.4-6.5Neutrophils (%) (Auto)November 28, 2024 8:39amSeptember 2024 8:39am69.2 %43.0-75.0Neutrophils (%) (Auto) January 01, 2025 10:07amOctober 2024 10:07am73.2 %43.0-75.0Platelet Count November 28, 2024 8:39amSept2024 8:65vu034 10 3/cU945-060Qwwiiuzn CountOctober 2024 10:07amOctober 2024 10:98ol079 10 3/mD739-288Sgu Blood CountSept2024 8:39amSept2024 8:39am3.07 10 6/uLBelow low normal4.70-6.10Red Blood CountOctober 2024 10:07amOctober 2024 10:07am2.89 10 6/uLBelow low normal4.70-6.10Red Cell Distribution WidthSept2024 8:39amSeptember 2024 8:39am13.8 %11.0-15.0Red Cell Distribution WidthOctober 2024 10:07amOctober 2024 10:07am14.6 %11.0-15.0Corrected White Blood CountSept2024 8:39amSeptember 2024 8:39am12.5 10 3/uLAbove high normal4.0-11.0Corrected White Blood CountOctober 2024 10:07amOctober 2024 10:07am13.2 10 3/uLAbove high normal4.0-11.0 Vital Signs Vital Reading Result Reference Range Collection Date/Time Height 71 [in_i] January 23, 2025 10:25gnBbletg605.05 kgOctober 2024 10:59amBody Ssasnerukyi98.2 [degF]97.6-99.0October 2024 10:13amHeart Rate82 /qgu81-607 January 23, 2025 10:13amRespiratory rate18 /ste05-89Qbdh 2024 9:26amBP Ibsbtzqo092 mm[Hg]100-140October 2024 10:13amBP Chanvlbis57 mm[Hg]60-100 January 23, 2025 10:13amBMI (Body Mass Index)31.4 kg/q9Wxhvpsm 2024 10:85utRwxejx52 [in_i]January 25, 2025 12:28woHhwlfe329.05 kgOctober 2024 12:19pmBody Dhvbqxyxiqu40.5 [degF]97.6-99.0October 2024 12:19pmHeart Rate91 /zdj96-621Iilwpip 30th, 2025 12:19pmBP Mzbpnjza159 mm[Hg]100-140Oct2024 12:19pmBP Zyuhypngj72 mm[Hg]60-100Oct2024 12:19pmBMI (Body Mass Index)31.4 kg/y9Sxqnbqj 2024 12:45ntSscakk15 [in_i]February 01, 2025 10:76rsExkjhp237.05 kgNovember 2024 10:45amBody Heslsshakyl03.1 [degF] 97.6-99.0November 2024 10:45amHeart Rate88 /qpw89-598Fezvhmqf 6th, 2025 10:45amRespiratory rate20 /alg65-78Spoueqyc 6th, 2025 10:45amOxygen saturation by Pulse %95-100Nov2024 10:45amBP Ztofzqwq828 mm[Hg] 100-140Nov2024 10:45amBP Kcpatduen66 mm[Hg]60-100Nov2024 10:45amBMI (Body Mass Index)31.4 kg/e7Eebbsxfo2024 10:45am Advance Directives Advance Directive Response Recorded Date/ Time Advance Directives No January 11, 2025 12:24pm Insurance Providers Guarantor Ganga Evans [place] Address [address] [address]Xkjbqzz Info.Home Phone: Payer Group Member ID Coverage Type Subscriber Relationship to Subscriber Effective Date Expiration Date MMO Id: [id number] [place] Id: [id number] [address] [facility] [address] Home Phone: anthem [place] Id: [id number] [place] Id: [id number] [address] [facility] [address] Home Phone: Medicare [id number] Cristina Alloway Id: [id number] [address] [facility] [address] [facility] [address] Home Phone: Email: [email or web address] [address] [place] [address] Work Phone: Retired Id: [id number] [place] Id: [id number] [address] [facility] [address] [facility] [address] Home Phone: Email: [email or web address] Encounters Encounter Location(s) Arrival/Admit Date Discharge/Departure Date Discharge/Departure Disposition Provider(s) Non-patient / Non-visit -[facility] S eptember 2024 9:39am Nina River MDNon-patient / Ukb-fkcav-[place] [facility] CoOctober 2024 11:07Samara Bahena , CRISTIANA MSRegistered [facility]ur[facility] 10:54ALISHA Renteriaeparted Physician/Provider Office Visit-[facility] Infect DisOctober 2024 1:03pmOctober 2024 1:47pmDischarged to home care or self care (routine discharge)ALISHA Vaneparted Physician/Provider Office Visit-[facility] [place] February 01, 2025 9:41amNovembiker 2024 11:14amDischarged to home care or self care (routine discharge)Fidel Reis MD Recent Diagnosis Onset Date Admit Date Diabetes mellitus due to und erlying condition with diabetic neuropathy, wit Unknown January 23, 2025 10:54 am Pressure injury of left ischium, stage 4 Unknown January 23, 2025 10:54am Pressure injury of right ischium, stage 4 Unknow n January 23, 2025 10:54am Stage IV pressure ulcer of sacral region Unknown January 23, 2025 10:54am Cauda equina spinal cord injury Unknown January 23, 2025 10:54am Open wound of both legs with complication Unknow n January 25, 2025 1:03pm Wound infection Unknown January 25 1:03pm Type 2 diabetes mellitus wit h hyperglycemia, without long-term current use Unknown February 01, 2025 9:41a m Assessments Diagnosis Onset Date Resolution Status Admit Date Diabetes mellitus due to underlying cond ition with diabetic neuropathy, wit acuteOctober 2024 10:54amPressure injury of left ischium, stage 4acute January 23, 2025 10:54amPressure injury of right ischium, stage 4acuteOctober 2024 10:54amStage IV pressure ulcer of sacral regionacuteOctober 2024 10:54amCauda equina spinal cord injurychronicOctober 2024 10:54amOpen wound of both legs with complicationacuteOctober 2024 1:03pmWound infectionacuteOctober 2024 1:03pmType 2 diabetes mellitus with hyperglycemia, without long-term current useacuteNov2024 9:41am Plan of Treatment Author Moisés Morelos [facility] CenterAuthoredOctober 2024 2:11pmPatient has had wounds for quite some time on both legs bilaterally. Concern at this time is the left leg wound specifically in the foot that is nonsalvageable and is limb threatening per Dr. Bahena. Patient has had various cultures performed that have grown various different organisms. Antibiotics repetitively will only increase patient's risk of resistance and my concern echos Dr. Bahena's as his infection will ultimately progress to his bloodstream and cause sepsis and possibly . Would strongly consider BKA on left side. As for his other wound on his R leg VAC is in place. Future Tests Future scheduled test information is unavailable Pending Tests Pending diagnostic test information is unavailable Future Visits Future appointment information is unavailable Future Procedures Procedure Name Ordered Date Scheduled Date A1C with Estimated Average Glu February 01 5 11:10am Future Medications Future medication information is unavailable Patient Instructions Patient instructions are unavailable
--- OUTSIDE RECORDS SUMMARY | 2025-02-07 11:22 | XMS_ITS | Patient Health Record ---
Author Organization [facility] in [place] Address [address] [place] [place] [address] Care Team Providers Care Fashion Photographer Name Role Phone Fidel Reis MD Primary Care Provider Unavailab America Griffin Unavailable [phone] Jesus Bahena Unavailable [phone] Raghavendra Martins Unavailable [phone] Allergies Allergen (clinical drug ingredient) Drug/Non Drug Allergy documented on EMR Reaction Allergy Type Onset Date Status vancomycin Vancomycin Renal failure Drug Allergy Active Results Component Value Reference Range Notes CRP (Not yet reviewed by pro vider) Interpretation: Performing Lab: Notes/Report: [facility] , C Reactive Protein 15.33 <=0.50 mg/dL Performing Lab:see note - [facility] LBErythrocyte Sedimentation Rate (Not yet reviewed by provider) Interpretation: Performing Lab: Notes/Report: [facility] ,Erythrocyte Sedimentation Rate67<=20 mm/hrPerforming Lab:see note - [facility] LBVC SEGMENTAL PRESSURES (Not yet reviewed by provider) Interpretation: Performing Lab: Notes/Report: Source Facility: [facility]-[address] [place] [address] [place] [address] Vein Report Signed Patient: JOEL STINSON MR#: [id number] : 1960 Acct:[id number] Age/Sex: 63 / M ADM Date: 03/06/24 Loc: VC Attending Dr: Jesus Bahena D.P.M. Ordering Physician: Jesus Bahena D.P.M. Date of Service: 03/06/24 Procedure(s): VC SEGMENTAL PRESSURES Accession Number(s): [id number] cc: Jesus Bahena D.P.M.; Fidel Reis M.D. The [address] [address] Patient Name: JOEL STINSON MRN: [facility]:[id number] date: 1960 Sex: M Assigned Patient Location: VC Current Patient Location: VC Accession/Order Number: [id number] Exam Date: 03/06/2024 11:00 Report Date: 03/06/2024 [...] Wright M.D. Signed By: 03/06/24 1416 DD/ 1413 TD/TT: Nurse Practitioner Per Diem:CBC AUTO DIFF (Not yet reviewed by provider) Interpretation: Performing Lab: Notes/Report: [facility] ,White Blood Count13.24.0-11.0 10 3/uLRed Blood Count3.254.70-6.10 10 6/uL Hemoglobin8.114.0-18.0 g/tUUyqaghavrv24.942.0-54.0 %Mean Corpuscular Hzpihn95.8 80.0-94.0 fLMean Corpuscular Ewkrqzqykr48.925.9-34.0 pgMean Corpuscular HGB Conc 30.129.9-35.2 g/dLRed Cell Distribution Width14.011.0-15.0 %Platelet Iuwhv096 150-450 10 3/uLMean Platelet Volume8.99.5-13.5 fLNeutrophils Percent Auto70.2 43.0-75.0 %Lymphocytes Percent Auto12.220.5-60.0 %Monocytes Percent Auto7.31.7- 12.0 %Eosinophils Percent Auto8.80.9-7.0 %Basophils Percent Auto0.60.2-2.0 % Immature Granulocytes Pct Auto0.90.0-0.5 %Neutrophils Absolute Auto9.31.4-6.5 10 3/uLLymphocytes Absolute Auto1.61.2-3.8 10 3/uLMonocytes Absolute Auto1.00.3-0.8 10 3/uLEosinophils Absolute Auto1.20.0-0.7 10 3/uLBasophils Absolute Auto0.10.0- 0.1 10 3/uLImmature Granulocytes Abs Auto0.120.00-0.03 10 3/uLPerforming Lab:see noteML - [facility] LBFERRITIN (Not yet reviewed by provider) Interpretation: Performing Lab: Notes/Report: [facility] ,Oxhtptyk198.026.0-388.0 ng/mLPerforming Lab:see noteML - [facility] LBIRON AND TIBC (Not yet reviewed by provider) Interpretation: Performing Lab: Notes/Report: [facility] ,Iron17.065.0-175.0 ug/dLTotal Iron Binding Wxktvkfn780.0250.0-450.0 ug/dL Percent Iron Burkoyqslc96.7Performing Lab:see noteML - [facility] LB CBC AUTO DIFF (Not yet reviewed by provider) Interpretation: Performing Lab: Notes/Report: [facility] ,White Blood Count12.24.0-11.0 10 3/uLRed Blood Count2.714.70-6.10 10 6/uL Hemoglobin6.714.0-18.0 g/dLRESULTS CALLED TO ANGELICA RUBALCAVA RN at 1047Hematocrit 22.442.0-54.0 %RESULTS CALLED TO ANGELICA RUBALCAVA RN at 1047Mean Corpuscular Volume 82.780.0-94.0 fLMean Corpuscular Nburipxnhz84.725.9-34.0 pgMean Corpuscular HGB Conc29.929.9-35.2 g/dLRed Cell Distribution Width15.511.0-15.0 %Platelet Count 401182-123 10 3/uLMean Platelet Volume9.09.5-13.5 fLNeutrophils Percent Auto72.6 43.0-75.0 %Lymphocytes Percent Auto12.920.5-60.0 %Monocytes Percent Auto8.41.7- 12.0 %Eosinophils Percent Auto5.50.9-7.0 %Basophils Percent Auto0.30.2-2.0 % Immature Granulocytes Pct Auto0.30.0-0.5 %Neutrophils Absolute Auto8.91.4-6.5 10 3/uLLymphocytes Absolute Auto1.61.2-3.8 10 3/uLMonocytes Absolute Auto1.00.3-0.8 10 3/uLEosinophils Absolute Auto0.70.0-0.7 10 3/uLBasophils Absolute Auto0.00.0- 0.1 10 3/uLImmature Granulocytes Abs Auto0.040.00-0.03 10 3/uLPerforming Lab:see noteML - [facility] LBCBC AUTO DIFF (Not yet reviewed by provider) Interpretation: Performing Lab: Notes/Report: [facility] ,White Blood Count13.84.0-11.0 10 3/uLRed Blood Count2.814.70-6.10 10 6/uL Hemoglobin7.314.0-18.0 g/aYWnwgffzkww82.442.0-54.0 %RESULTS CALLED TO ANGELICA RUBALCAVA, RNMean Corpuscular Qamoxd24.380.0-94.0 fLMean Corpuscular Kufmpllrvx84.0 25.9-34.0 pgMean Corpuscular HGB Conc31.229.9-35.2 g/dLRed Cell Distribution Width14.311.0-15.0 %Platelet Gcfde070499-801 10 3/uLMean Platelet Volume8.99.5- 13.5 fLNeutrophils Percent Auto74.543.0-75.0 %Lymphocytes Percent Auto11.520.5- 60.0 %Monocytes Percent Auto8.21.7-12.0 %Eosinophils Percent Auto5.00.9-7.0 % Basophils Percent Auto0.40.2-2.0 %Immature Granulocytes Pct Auto0.40.0-0.5 % Neutrophils Absolute Auto10.31.4-6.5 10 3/uLLymphocytes Absolute Auto1.61.2-3.8 10 3/uLMonocytes Absolute Auto1.10.3-0.8 10 3/uLEosinophils Absolute Auto0.70.0- 0.7 10 3/uLBasophils Absolute Auto0.10.0-0.1 10 3/uLImmature Granulocytes Abs Auto0.060.00-0.03 10 3/uLPerforming Lab:see noteML - [facility] LB PROF CHEM 8 (BAS METB) (Not yet reviewed by provider) Interpretation: Performing Lab: Notes/Report: [facility] ,Gqikaa920129-525 mmol/LPotassium3.83.5-5.1 mmol/DAkotedfn15366-578 mmol/LCarbon Nwgqula53.521.0-32.0 mmol/LAnion Gap10.5Kjpyioy58354-414 mg/dLBlood Urea Iheesisv65.07.0-18.0 mg/dLCreatinine2.120.70-1.30 mg/dLEstimated GFR ( Jyeubvr30>=60 mL/min/1.73m 2Estimated GFR (Non- Ame32>=60 mL/min/1.73m 2 BUN Creatinine Ratio14.1Annknkn6.78.5-10.1 mg/dLPerforming Lab:see noteML - [facility] LBCRP (Not yet reviewed by provider) Interpretation: Performing Lab: Notes/Report: [facility] ,C Reactive Qsojjqp06.73<=0.50 mg/dLPerforming Lab:see note - [facility] LBIRON AND TIBC (Not yet reviewed by provider) Interpretation: Performing Lab: Notes/Report: [facility] ,Iron24.065.0-175.0 ug/dLTotal Iron Binding Lwvxzhle429.0250.0-450.0 ug/dL Percent Iron Bhsscwplcy75.1Performing Lab:see noteML - [facility] LB PROF CHEM 8 (BAS METB) (Not yet reviewed by provider) Interpretation: Performing Lab: Notes/Report: [facility] ,Xlrjxz609908-459 mmol/LPotassium3.63.5-5.1 mmol/YLlcfjxse26579-040 mmol/LCarbon Ysueyrj76.421.0-32.0 mmol/LAnion Gap12.4Jkuhpoh96361-322 mg/dLBlood Urea Prrfifir01.07.0-18.0 mg/dLCreatinine1.640.70-1.30 mg/dLEstimated GFR ( Zyahyiy46>=60 mL/min/1.73m 2Estimated GFR (Non- Ame43>=60 mL/min/1.73m 2 BUN Creatinine Ratio13.4Qqcaqeo4.38.5-10.1 mg/dLPerforming Lab:see noteML - [facility] LBPROF CHEM 8 (BAS METB) (Not yet reviewed by provider) Interpretation: Performing Lab: Notes/Report: [facility] ,Cpprkm407013-526 mmol/LPotassium4.13.5-5.1 mmol/SZfaadhnj99934-278 mmol/LCarbon Dsanmrf32.521.0-32.0 mmol/LAnion Gap11.9Odpxlva85680-834 mg/dLBlood Urea Yeaykawt99.07.0-18.0 mg/dLCreatinine2.050.70-1.30 mg/dLEstimated GFR ( Pdqytvu54>=60 mL/min/1.73m 2Estimated GFR (Non- Ame33>=60 mL/min/1.73m 2 BUN Creatinine Ratio12.2Mrxijod7.98.5-10.1 mg/dLPerforming Lab:see noteML - [facility] LBIRON AND TIBC (Not yet reviewed by provider) Interpretation: Performing Lab: Notes/Report: [facility] ,Iron28.065.0-175.0 ug/dLTotal Iron Binding Rvaycehv099.0250.0-450.0 ug/dL Percent Iron Xlbmyevdnx27.0Performing Lab:see noteML - [facility] LB FERRITIN (Not yet reviewed by provider) Interpretation: Performing Lab: Notes/Report: [facility] ,Zvlkmsur838.026.0-388.0 ng/mLPerforming Lab:see noteML - [facility] LBCBC AUTO DIFF (Not yet reviewed by provider) Interpretation: Performing Lab: Notes/Report: [facility] ,White Blood Count12.74.0-11.0 10 3/uLRed Blood Count2.814.70-6.10 10 6/uL Hemoglobin7.414.0-18.0 g/rUYodqmtdnte17.842.0-54.0 %RESULTS CALLED TO ANGELICA RUBALCAVA RN at 1219Mean Corpuscular Omamrv18.780.0-94.0 fLMean Corpuscular Mtrterywcl05.325.9-34.0 pgMean Corpuscular HGB Conc31.129.9-35.2 g/dLRed Cell Distribution Width14.511.0-15.0 %Platelet Uxqwj897429-442 10 3/uLMean Platelet Volume8.79.5-13.5 fLNeutrophils Percent Auto69.943.0-75.0 %Lymphocytes Percent Auto12.920.5-60.0 %Monocytes Percent Auto7.21.7-12.0 %Eosinophils Percent Auto 9.00.9-7.0 %Basophils Percent Auto0.40.2-2.0 %Immature Granulocytes Pct Auto0.6 0.0-0.5 %Neutrophils Absolute Auto8.91.4-6.5 10 3/uLLymphocytes Absolute Auto1.6 1.2-3.8 10 3/uLMonocytes Absolute Auto0.90.3-0.8 10 3/uLEosinophils Absolute Auto1.20.0-0.7 10 3/uLBasophils Absolute Auto0.10.0-0.1 10 3/uLImmature Granulocytes Abs Auto0.080.00-0.03 10 3/uLPerforming Lab:see noteML - [facility] LBIRON AND TIBC (Not yet reviewed by provider) Interpretation: Performing Lab: Notes/Report: [facility] ,Iron18.065.0-175.0 ug/dLTotal Iron Binding Tpuxvwva026.0250.0-450.0 ug/dL Percent Iron Mtocavuhqd93.9Performing Lab:see noteML - [facility] LB FERRITIN (Not yet reviewed by provider) Interpretation: Performing Lab: Notes/Report: [facility] ,Gurhkjlz798.026.0-388.0 ng/mLPerforming Lab:see note - [facility] LBType and Screen (Not yet reviewed by provider) Interpretation: Performing Lab: Notes/Report: [facility] ,Blood TypeA NegativeAntibody ScreenNEGATIVEPacked Red Blood Cells (Not yet reviewed by provider) Interpretation: Performing Lab: Notes/Report:Packed Red Blood Cells [id number] AN RC TRANSFUSED 06/08/24 1035 [id number] AN RC TRANSFUSED 06/08/24 1220 Erythrocyte Sedimentation Rate (Not yet reviewed by provider) Interpretation: Performing Lab: Notes/Report: [facility] ,Erythrocyte Sedimentation Rate92<=20 mm/hrPerforming Lab:[facility] LBPROF CHEM 8 (BAS METB) (Not yet reviewed by provider) Interpretation: Performing Lab: Notes/Report: [facility] ,Vwawmj494046-999 mmol/LPotassium5.03.5-5.1 mmol/OSnqvpjat00540-781 mmol/LCarbon Puupivv87.321.0-32.0 mmol/LAnion Gap14.2Oladeer11049-187 mg/dLBlood Urea Stiewoqm83.07.0-18.0 mg/dLCreatinine1.940.70-1.30 mg/dLEstimated GFR ( Skudvcw36>=60 mL/min/1.73m 2Estimated GFR (Non- Ame35>=60 mL/min/1.73m 2 BUN Creatinine Ratio18.5Ecgvgsf2.88.5-10.1 mg/dLPerforming Lab:see note - [facility] LBCRP (Not yet reviewed by provider) Interpretation: Performing Lab: Notes/Report: [facility] ,C Reactive Protein8.37<=0.50 mg/dLPerforming Lab:[facility] LBCBC AUTO DIFF (Not yet reviewed by provider) Interpretation: Performing Lab: Notes/Report: [facility] ,White Blood Count13.14.0-11.0 10 3/uLRed Blood Count2.794.70-6.10 10 6/uL Hemoglobin6.914.0-18.0 g/dLRESULTS CALLED TO KRZYSZTOF FREED RNHematocrit22.9 42.0-54.0 %RESULTS CALLED TO KRZYSZTOF FREED RNMean Corpuscular Eqlmyf90.180.0- 94.0 fLMean Corpuscular Juxkqzsjhi80.725.9-34.0 pgMean Corpuscular HGB Conc30.1 29.9-35.2 g/dLRed Cell Distribution Width15.311.0-15.0 %Platelet Oiszp388711-433 10 3/uLMean Platelet Volume8.99.5-13.5 fLNeutrophils Percent Auto75.843.0-75.0 % Lymphocytes Percent Auto10.220.5-60.0 %Monocytes Percent Auto8.11.7-12.0 % Eosinophils Percent Auto5.10.9-7.0 %Basophils Percent Auto0.40.2-2.0 %Immature Granulocytes Pct Auto0.40.0-0.5 %Neutrophils Absolute Auto9.91.4-6.5 10 3/uL Lymphocytes Absolute Auto1.31.2-3.8 10 3/uLMonocytes Absolute Auto1.10.3-0.8 10 3/uLEosinophils Absolute Auto0.70.0-0.7 10 3/uLBasophils Absolute Auto0.10.0-0.1 10 3/uLImmature Granulocytes Abs Auto0.050.00-0.03 10 3/uLPerforming Lab:see noteML - [facility] LBECG 12 lead (Not yet reviewed by provider) Interpretation: Performing Lab: Notes/Report: Source Facility: [facility]-[address] [place] [address] [place] [address] Electrocardiograph Report Signed Patient: JOEL STINSON MR#: [id number] : 1960 Acct:[id number] Age/Sex: 63 / M ADM Date: 03/10/24 Loc: PST Attending Dr: Jesus Bahena D.P.M. Ordering Physician: Jesus Bahena D.P.M. 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 Signed By: 03/10/24 1724 DD/ 1037 TD/TT: Nurse Practitioner Per Diem:PROF ROXANA Samuel ([facility]) (Not yet reviewed by provider) Interpretation: Performing Lab: Notes/Report: [facility] ,Dhrggw943227-280 mmol/LPotassium4.23.5-5.1 mmol/XFqhqsbsg61095-132 mmol/LCarbon Qmpiuxj59.221.0-32.0 mmol/LAnion Gap13.4Eegshde6346-511 mg/dLBlood Urea Nitrogen 35.07.0-18.0 mg/dLCreatinine2.330.70-1.30 mg/dLEstimated GFR ( Ewvmwnq32 >=60 mL/min/1.73m 2Estimated GFR (Non- Ame29>=60 mL/min/1.73m 2BUN Creatinine Ratio15.6Vrnhsew4.78.5-10.1 mg/dLPerforming Lab:see noteML - [facility] LBVitamin B12 (Not yet reviewed by provider) Interpretation: Performing Lab: Notes/Report: [facility] ,Vitamin K651677462-3928 pg/mL Performed at: - [facility] [address] [id number] Baggage Porter: Tejinder Wheeler PhD, Phone: [phone] Performing Lab:see noteLC - [facility] LBIRON AND TIBC (Not yet reviewed by provider) Interpretation: Performing Lab: Notes/Report: [facility] ,Iron28.065.0-175.0 ug/dLTotal Iron Binding Exslkftj735.0250.0-450.0 ug/dL Percent Iron Yghmqmejpb37.6Performing Lab:see note - [facility] LB FERRITIN (Not yet reviewed by provider) Interpretation: Performing Lab: Notes/Report: [facility] ,Bdwtzbdj031.026.0-388.0 ng/mLPerforming Lab:see note - [facility] LBErythrocyte Sedimentation Rate (Not yet reviewed by provider) Interpretation: Performing Lab: Notes/Report: [facility] ,Erythrocyte Sedimentation Bxkq657<=20 mm/hrPerforming Lab:see [facility] LBFERRITIN (Not yet reviewed by provider) Interpretation: Performing Lab: Notes/Report: [facility] ,Vbllznii496.026.0-388.0 ng/mLPerforming Lab:[facility] LBCBC AUTO DIFF (Not yet reviewed by provider) Interpretation: Performing Lab: Notes/Report: [facility] ,White Blood Count12.54.0-11.0 10 3/uLRed Blood Count3.074.70-6.10 10 6/uL Hemoglobin8.014.0-18.0 g/oBSvnfdslero21.042.0-54.0 %Mean Corpuscular Nazoac53.4 80.0-94.0 fLMean Corpuscular Wuxqsjzgmu84.125.9-34.0 pgMean Corpuscular HGB Conc 32.029.9-35.2 g/dLRed Cell Distribution Width13.811.0-15.0 %Platelet Ivmwd240 150-450 10 3/uLMean Platelet Volume9.09.5-13.5 fLNeutrophils Percent Auto69.2 43.0-75.0 %Lymphocytes Percent Auto12.120.5-60.0 %Monocytes Percent Auto7.71.7- 12.0 %Eosinophils Percent Auto10.10.9-7.0 %Basophils Percent Auto0.50.2-2.0 % Immature Granulocytes Pct Auto0.40.0-0.5 %Neutrophils Absolute Auto8.61.4-6.5 10 3/uLLymphocytes Absolute Auto1.51.2-3.8 10 3/uLMonocytes Absolute Auto1.00.3-0.8 10 3/uLEosinophils Absolute Auto1.30.0-0.7 10 3/uLBasophils Absolute Auto0.10.0- 0.1 10 3/uLImmature Granulocytes Abs Auto0.050.00-0.03 10 3/uLPerforming Lab:see noteML - [facility] LBPROF 14(COMP METB) (Not yet reviewed by provider) Interpretation: Performing Lab: Notes/Report: [facility] ,Ovcree957228-502 mmol/LPotassium4.03.5-5.1 mmol/GUwnlgvsq67099-580 mmol/LCarbon Xwjorkm67.021.0-32.0 mmol/LAnion Gap13.8Ultpjdz44551-367 mg/dLBlood Urea Pjweumdz98.07.0-18.0 mg/dLCreatinine1.780.70-1.30 mg/dLEstimated GFR ( Hvvhfsb95>=60 mL/min/1.73m 2Estimated GFR (Non- Ame39>=60 mL/min/1.73m 2 BUN Creatinine Ratio19.9Gklrblw7.78.5-10.1 mg/dLBilirubin Total0.20.2-1.0 mg/dL Aspartate Amino Zzvompkxeww4869-39 U/LAlanine Njishxcgfynldalj4563-01 U/L Alkaline Ajkntckeodc50697-906 U/LTotal Protein7.86.4-8.2 g/dLAlbumin Level1.7 3.4-5.0 g/dLGlobulin6.1Albumin Globulin Ratio0.3Performing Lab:see noteML - [facility] LBCBC AUTO DIFF (Not yet reviewed by provider) Interpretation: Performing Lab: Notes/Report: [facility] ,White Blood Count13.54.0-11.0 10 3/uLRed Blood Count2.784.70-6.10 10 6/uL Hemoglobin7.414.0-18.0 g/eZBvpgewjkpn09.242.0-54.0 %RESULTS CALLED TO Ruben PENA Corpuscular Izepqa21.580.0-94.0 fLMean Corpuscular Mnegejzmsq80.6 25.9-34.0 pgMean Corpuscular HGB Conc31.929.9-35.2 g/dLRed Cell Distribution Width14.311.0-15.0 %Platelet Mtuvt203459-486 10 3/uLMean Platelet Volume8.89.5- 13.5 fLNeutrophils Percent Auto68.643.0-75.0 %Lymphocytes Percent Auto13.320.5- 60.0 %Monocytes Percent Auto7.81.7-12.0 %Eosinophils Percent Auto9.50.9-7.0 % Basophils Percent Auto0.30.2-2.0 %Immature Granulocytes Pct Auto0.50.0-0.5 % Neutrophils Absolute Auto9.31.4-6.5 10 3/uLLymphocytes Absolute Auto1.81.2-3.8 10 3/uLMonocytes Absolute Auto1.10.3-0.8 10 3/uLEosinophils Absolute Auto1.30.0- 0.7 10 3/uLBasophils Absolute Auto0.00.0-0.1 10 3/uLImmature Granulocytes Abs Auto0.070.00-0.03 10 3/uLPerforming Lab:see noteML - [facility] Reason For Referral No Information Medications Medication SIG (Take, Route, Frequency, Duration) Notes Start Date End Date Status hydrOXYzine HCl 50 MG TAKE 1 TABLET BY M OUTH 4 TIMES DAILY NEEDED FOR ITCHING Oral; Duration: 8 Days ActiveglipiZIDE 10 MG1 tablet 30 minutes before breakfast Orally Once a day ActiveCitalopram Hydrobromide 40 MG0.5 tablet Orally Once a dayActive Atorvastatin Calcium 40 MGOral; Duration: 30 DaysActiveAtenolol 100 MG1 tablet Orally Once a dayActiveamLODIPine Besylate 10 MG1 tablet Orally Once a dayActive Lisinopril 20 MG1 tablet Orally Once a dayActiveJanuvia 100 MG1 tablet Orally Once a dayActive Immunizations Vaccine Route Administration Date Status Comme nts Flu, Fluarix (38862) 6 mos a nd older, single-dose (1034-8752) Unknown 02/11/2023 Administered Social History Tobacco Use: Social History Observation Description Date Details (start date - stop date) Never Smoker NA - NA Tobacco Control (Standard) Question Answer Notes Tobacco use: Nonsmoker Problems Problem Type SNOMED Code ICD Code Onset Dates Problem Status W/U Status Risk Notes Problem Anemia (303135805) Anemia, unspecified (D 64.9) ActiveconfirmedProblemFoot ulcer due to type 2 diabetes mellitus (6439705113764) Type 2 diabetes mellitus with foot ulcer (E11.621)ActiveconfirmedProblemPressure ulcer of right ankle, stage 2 (L89.512)ActiveconfirmedProblemChronic ulcer of foot (655833016)Non-pressure chronic ulcer of left heel and midfoot with fat layer exposed (L97.422)ActiveconfirmedProblemNon-pressure chronic ulcer of other part of right lower leg with necrosis of muscle (L97.813)ActiveconfirmedProblem Obesity (751204180)Obesity (E66.9)ActiveconfirmedProblemHypertension (81318409) HTN (hypertension) (I10)ActiveconfirmedProblemObstructive sleep apnea syndrome (01705529)JAE (obstructive sleep apnea) (G47.33)ActiveconfirmedProblemNeurogenic bladder (484311277)Neurogenic bladder (N31.9)ActiveconfirmedProblemIron deficiency anemia (75000955)Iron deficiency anemia (D50.9)ActiveconfirmedProblem Leukocytosis (374024026)Leukocytosis (D72.829)ActiveconfirmedProblemSkin ulcer associated with diabetes mellitus (411644700)DM type 2 causing leg or foot ulcer (E11.622)ActiveconfirmedProblemParaplegia (13627501)Paraplegic spinal paralysis (G82.20)ActiveconfirmedProblemLeukocytosis (868407971)Elevated WBCs (D72.829) ActiveconfirmedProblemChronic paraplegia (325037781)Chronic paraplegia (G82.20) ActiveconfirmedProblemChronic ulcer of foot (295290249)Non-pressure chronic ulcer of right heel and midfoot with fat layer exposed (L97.412)Activeconfirmed ProblemSkin ulcer of right knee with fat layer exposed (L97.812)Activeconfirmed ProblemDecubitus ulcer of left leg, stage 3 (L89.893)ActiveconfirmedProblem Decubitus ulcer of right heel, unstageable (L89.610)ActiveconfirmedProblem Pressure injury of right heel stage II (disorder) (23405816146318)Decubitus ulcer of right heel, stage 2 (L89.612)ActiveconfirmedProblemMalnutrition of moderate degree (Oswald: 60% to less than 75% of standard weight) (52482402) Moderate protein malnutrition (E44.0)ActiveconfirmedProblemStasis edema with ulcer of both lower extremities (I87.313)ActiveconfirmedProblemChronic ulcer of ankle (695466817)Non-pressure chronic ulcer of right ankle with other specified severity (L97.318)ActiveconfirmedProblemNon-pressure chronic ulcer of left heel and midfoot with other specified severity (L97.428)ActiveconfirmedProblemNon- pressure chronic ulcer of other part of left foot with other specified severity (L97.528)ActiveconfirmedProblemNon-pressure chronic ulcer of other part of right lower leg with other specified severity (L97.818)ActiveconfirmedProblemPressure injury of left heel (disorder) (28597884832202)Pressure injury of left heel, unstageable (L89.620)ActiveconfirmedProblemAnkle ulcer (788204612)Ischemic ulcer of right 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 (L97.312)ActiveconfirmedProblemPressure injury of right ankle, stage 2 (L89.512)Activeconfirmed Vital Signs Heart Rate 72 /min 06/21/2024 Weight reported by patient Temperature 97.0 degrees Fahrenheit 06/21/2024 Weig ht reported by patient Respiratory Rate 18 /min 06/21/2024 Weight repo rted by patient Oximetry 98 % 06/21/2024 Weight reported by patient Blood pressure diastolic 75 mm Hg 06/21/2024 Vijay ght reported by patient Height 71 in 06/21/2024 Weight reported by patient Blood pressure systolic 153 mm Hg 06/21/2024 Weig ht reported by patient Weight 225.0 lbs 06/21/2024 Weight reported by patient BMI 31.38 kg/m2 06/21/2024 Weight reported by patient Encounters Encounter Location Date Provider Diagnosis Pulmonary Medicine [place] [address] [place] [address] 06/21/20[place] [facility] [place] (obstructive sleep apnea) G47.33 ; Chronic paraplegia G82.20 and Obesity E66.9 [facility] OUTPATIENT [address] [place] [address] 03/16/2024 Jesus [facility] [address] [place] [address]/03/20[facility] [address] [place] [address]/[facility] [address] [place] [address]/[facility] [address] [place] [address]/[facility] [address] [place] [address]/[facility] Pulmonary Medicine [address] [place] [address]/04/2023 [facility] (PODIATRY)[address] [place] [id number]/[facility] [employer] (PODIATRY)[address] [place] [address]/[facility] Medicine [address] [place] [address] 04/17/2024[facility] [place] [address]/[facility] Ass[facility] Encounter Date Diagnosis (ICD Code) Assessment Notes Treatment Notes Treatment Clinical Notes Section Notes 06/21/2024 AJE (obstructive sleep apnea) (I CD-10 - G47.33) [id number] encounter performed with the patient to document continued need for PAP therapy. -DME:[facility] study 03/14/2021: AHI 79; Titration: CPAP 05csP7D, though BiPAP also used during the study-Compliance was reviewed from 05/20/2024 - 06/18/2024-Total days used: (100%)-Total of all days >4 hours of use: 30 (100%)-Current model, mode, & pressure(s): AirSense 11 AutoSet C PAP 52ecP2L-Lycwhbiq AHI: 13.7-Median air leak: 34.6L/min-Mask/harness fitting: Okay even with julien-Sleep quality: Wakes up once a night d/t pain-Daytime hypersomnolence: Not waking up feeling refreshed in the morning-Recommendations: He has superb compliance, but AHI is suboptimal @ 13.7 (goal <5). This is despite the patient losing 25# since last visit. Previously was on BiPAP and more recently CPAP 85wqM0H. Currently at 91ubY2D. Discussed several options including increasing pressure to 06txY5I or changing to an auto-CPAP. Patient voiced he would be okay with either option. Will try auto-CPAP to start 10- 72shQ3I - if unable to do so, will change pressure to 69ytT6L and recheck compliance in 1 month. He was counseled to continue using it every night and with naps.-This ypxd-bi-aejs visit comes with the recommendation that the patient's DME renew, reorder, and/or replace tubing, supplies, mask, and/or PAP device (if applicable). F/U 1 year or sooner PRN. 06/21/2024hronic paraplegia (ICD-10 - G82.20)06/21/2024Obesity (ICD-10 - E66.9) Patient's weight is inducing a restrictive pulmonary physiology. Weight loss indicated: Decrease calories, increase activity. 06/21/2024Other Etiology unclear, no rashes/urticaria, macules, papules, etc. He states his recent renal function was okay, so less likely uremic leon. 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 Diphenhydramine and hydroxyzine did not help. Question ferrous sulfate - this was the most recent change to his regimen, and there are case reports of itching/rashes associated with it. I strongly suggested he discuss this with Dr. River and/orhis PCP, or referral to an typing pool supervisor. Plan Of Treatment Pending Test Test Name [...] AUTO DIFF 09/11/2024 CBC AUTO DIFF 09/26/2024 CBC AUTO DIFF 11/28/2024 CRP 11/28/2024 CRP 05/30/2024 CRP 02/14/2024 CRP 10/26/2023 CRP 12/02/2023 CRP 07/22/2023 FERRITIN 08/31/2023 FERRITIN 09/29/2023 FERRITIN 12/02/2023 FERRITIN 02/14/2024 FERRITIN 10/26/2023 FERRITIN 05/30/2024 FERRITIN 11/28/2024 FERRITIN 09/11/2024 FERRITIN 08/10/2024 IRON AND TIBC 09/11/2024 IRON AND TIBC 11/28/2024 IRON AND TIBC 08/10/2024 IRON AND TIBC 05/30/2024 IRON AND TIBC 12/02/2023 IRON AND TIBC 02/14/2024 IRON AND TIBC 10/26/2023 IRON AND TIBC 09/29/2023 IRON AND TIBC 08/31/2023 PROF 14(COMP METB) 10/26/2023 PROF 14(COMP METB) 09/26/2024 PROF CHEM 8 (BAS METB) 11/28/2024 PROF CHEM 8 (BAS METB) 12/02/2023 PROF [...] Sedimentation Rate 4 Erythrocyte Sedimentation Rate 5 Packed Red Blood Cells 06/06/2024 Packed Red Blood Cells 10/12/2023 Packed Red Blood Cells 07/27/2023 Type and Screen 07/27/2023 Type and Screen 10/12/2023 Type and Screen 06/06/2024 MYELO DYSPL SYNDROME (MDS), DIAGNOSTIC F GIULIANA, VARIES 10/11/2023 Reticulocyte Pct Auto 09/29/2023 Erythropoietin (EPO), Serum 09/29/2023 VC SEGMENTAL PRESSURES 03/06/2024 Vitamin B12 02/14/2024 Next Appt Details Provider Name:AMERICA RIVER , 03/13/2025 10:30:00 AM, [address] [place], [address], Insurance Providers Payer Name Payer Address Payer Phone Subscriber Number Group Number Insured Name Patient Relationship to Insured Coverage Start Date Coverage End Date [place] [address] [place] [address] [id number] Lorenzo Stinson - patient is the [id number] 2006 Medical (General) History Medical History History ICD Code JAE (obstructive sleep apnea) G47.33 HTN (hypertension) I10 Cauda equina syndrome G83.4 Chronic paraplegia G82.20 Dyslipidemia E78.5 MDD (major depressive disorder) F32.9 Overflow incontinence N39.490 DM2 (diabetes mellitus, type 2) E11.9 Chronic kidney disease, stage 3b N18.32 Obesity E66.9 History of osteomyelitis Z87.39 History of gastritis Z87.19 History of COVID-19 Z86.16 Surgical History Surgery Date(Month/Year) Colonoscopy EGDUrethral dilationLumbar surgery for cauda equina syndromeAppendectomy Hospitalization History Reason Date(Month/Year) Left lower extremity chronic ulcer, cell ulitis 10/07/2022
--- OUTSIDE RECORDS SUMMARY | 2025-02-07 11:22 | XMS_ITS | Clinical Summary ---
Author Organization [facility] Healthcare Address [address] [place] [address] Care Team Providers Care Bobbin Stripper Name Role Phone Fidel Reis MD Primary Care Provider [phone] Allergies Active AllergyReactionsCriticalityNoted FnmjSkyvjkvuMwrfmvlozwzt18/28/2023 Other Reaction(s): Kidney pain VancomycinOther,Mjjhkfy0406/21/2015 NEPHROTOXICITY States had kidney issues after taking Medications MedicationSigDispense QuantityRefillsLast FilledStart DateEnd DateStatus oxybutynin XL (Ditropan-XL) 15 MG 24 hr tablet Indications:Incontinence overflow, urineTake 1 tablet (15 mg) by mouth Daily 30 tablet 11005/01/0550346Active atenolol (Tenormin) 100 MG tablet Indications:Benign hypertensionTake [...] (07/31/2024 11:20 AM EDT): Weight loss indicated. Hohoblkrr46/24/2024 Assessment & Plan (01/20/2024 12:25 PM EDT): Unclear cause of hives. Treat with prednisone and use hydroxyzine PRN. Encounter for long-term (current) use of ektuxqqfioy60/22/2024enign zbtuxltpipjx26/09/2024 Assessment & Plan (07/31/2024 11:18 AM EDT): BP controlled and monitor PRN. Assessment & Plan (04/06/2023 10:47 AM EST): BP controlled and monitor PRN. Cauda equina /09/2024 Assessment & Plan (11/18/2023 2:11 PM EDT): Patient stable Ipyoescdli93/09/2024hronic superficial lltimmotm32/09/2024 Assessment & Plan (07/31/2024 11:18 AM EDT): Symptoms controlled with medication and continue. Assessment & Plan (04/06/2023 10:47 AM EST): Symptoms controlled with medication and continue. Eczema, onrmmarxcbu93/09/2024Major depressive disorder, recurrent episode, mild 04/06/2023 Assessment [...] with hyperglycemia, without long-term current use of uplvyaq2504/06/2023 Assessment & Plan (07/31/2024 11:18 AM EDT): Reports BS stable and due for A1C. Stick to ADA diet and limit carbs. Assessment & Plan (04/06/2023 10:48 AM EST): Reports BS stable and due for A1C. Stick to ADA diet and limit carbs. Qjbxtpqyntin83/09/2024hronic kidney disease, stage 3a04/06/2023 Resolved Problems ProblemNoted DateDiagnosed DateResolved BlepBlssivfq48 Assessment & Plan (11/18/2023 2:11 PM EDT): C/o itching and try hydroxyzine. Encounters DateTypeDepartmentCare VyfbAuqrdomlluy06/27/2025Refill [facility] [address] [address] [place] [address] Fidel Reis MD Primary hypertension ; Benign hypertension ; Type 2 diabetes mellitus with hyperglycemia, without long-term current use of insulin (HCC); Dyslipidemiafrom Last 3 Months Social History Tobacco UseTypesPacks/DayYears [...] times a week10/17/2023How often do you attend catholic or jewish services?Patient xufpbjtv41/21/2024o you belong to any clubs or organizations such as catholic groups, unions, fraLumoid or athletic groups, or school groups?No 10/17/2023How often do you attend meetings of the clubs or organizations you belong to?Never10/17/2023re you , , , , never , or living with a partner?Grdgchz9810/17/2023UDIT-CAnswerDate RecordedQ1: How often do you have a drink containing alcohol?Patient sosfreoa81/21/2024Q2: How many drinks containing alcohol do you have on a typical day when you are drinking?Patient does not drink10/17/2023Q3: How often do you have six or more drinks on one occasion?Never10/17/2023Overall Financial Resource Strain (CARDIA) AnswerDate RecordedHow hard is it for you to pay for the very basics like food, housing, medical care, and heating?Not hard at all10/17/2023[facility] [place] [facility] - Occupational Stress QuestionnaireAnswerDate RecordedDo you feel stress - tense, restless, nervous, or anxious, or unable to sleep at night because yourmind is troubled all the time - these days?Patient declined 10/17/2023Exercise Vital SignAnswerDate RecordedOn average, how many days per week do you engage in moderate to strenuous exercise (like a brisk walk)?Patient ihnireux54/21/2024On average, how many minutes do you engage in exercise at this level?Patient zijrhgwn02/21/2024Hunger Vital SignAnswerDate RecordedWithin the past 12 months, [...] InformationValueDate RecordedSex Assigned at BirthNot on fileLegal WxmAqxy3206/10/2022 7:28 PM EDT Gender IdentityNot on fileSexual OrientationNot on file Last Filed Vital Signs Vital SignReadingTime TakenCommentsBlood Opeboaoy103/7005 10:49 AM EDT Celbw2555 10:49 AM UKJWmjzooaephn71.4 ??C (97.5 ??F)07/31/2024 10:49 AM EDTRespiratory Nyfv649007/31/2024 10:49 AM EDTOxygen Triktouogl29%07/31/2024 10:49 AM EDTInhaled Oxygen Concentration--Xhosip666 kg (252 lb)06/10/2023 11:15 AM EDT Wepcks531.3 cm (5' 11 )07/31/2024 10:49 AM EDTBody Mass Index36.1603 11:15 AM EDT Plan of Treatment Not on file Insurance Care Teams Team MemberRelationshipSpecialtyStart DateEnd Date Fidel Reis MD [facility]
--- OUTSIDE RECORDS SUMMARY | 2025-02-07 11:23 | XMS_ITS | Clinical Summary ---
Author Organization [facility] Address [facility] [place] [id number] Care Team Providers Care Metal Spray Operator Name Role Phone Jameel Smith Primary Care [...] Last Filed Vital Signs Vital SignReadingTime TakenCommentsBlood Upfqcxdc568/6604 1:06 PM EDT Xsdja7350 1:06 PM EDTTemperature--Respiratory Rate--Oxygen Saturation-- Inhaled Oxygen Concentration--Weight--Height--Body Mass Index-- Plan of Treatment Health MaintenanceDue DateLast DoneCommentsAnxiety Kgeisxvwh97/11/1980Depression Dultwnvot49/11/1980HIV Rtfvmyexz04/11/1980Hepatitis C Ycmirfuir75/11/1980 DTaP,Tdap,Td Vaccine (1 - Tdap)1980Lipid Medhbagbd25/11/1997CT Astydiauccfj54/11/2007Cologuard (FIT-DNA)07/07/20066973Xtkfktpcwkb80/11/2007 Colorectal Cancer Hwrrtuvsv87/11/2007Diabetes Qbwgpjmvv14/11/2007Fecal Occult Blood2006Prostate Cancer Screening Kpsglueqre31/11/2007Sigmoidoscopy 2006Pneumococcal Vaccine: 50+ (1 of 1 - PCV)07/08/2011Shingrix Vaccine (1 of 2)07/08/2011Covid-19 Vaccine (1 - 2024- season)2024Influenza Vaccine (#1)2024RSV Vaccine (1 - 1-dose 75+ series)2036 Insurance Care Teams Team MemberRelationshipSpecialtyStart DateEnd Date Jameel Smith PCP - GeneralInternal Medicine07/01/11
--- OUTSIDE RECORDS SUMMARY | 2025-02-07 11:24 | XMS_ITS | Clinical Summary ---
Author Organization [employer] Address [id number] [address] [place] [address] Care Team Providers Care Sewing Teacher Name Role Phone Fidel Reis MD Primary Care Provider [phone] Allergies Active AllergyReactionsCriticalityNoted DateCommentsVancomycinOther (See Comments)01/01/2017 NEPHROTOXICITY Medications MedicationSigDispense QuantityRefillsLast FilledStart DateEnd DateStatus citalopram (CeleXA) 40 mg tablet Take 40 mg by mouth daily.09/22/2016Active atenolol (TENORMIN) 100 mg tablet Take 100 mg by mouth daily.06/29/2016Active amLODIPine (NORVASC) 10 mg tablet Take 10 mg by mouth daily.06/27/2016Active fenofibrate (TRICOR) 145 mg tablet Take 145 mg by mouth daily. DAILY AT LFGZHEU3409/22/2016Active rosuvastatin (CRESTOR) 20 mg tablet Take 20 mg by mouth daily. TAKE ONE TABLET BY MOUTH DAILY AT YXKLTSC7606/07/2016 Active insulin glargine (LANTUS) 100 unit/mL injection [...] standard drink = 0.6 oz pure alcohol)ChildcareAnswerDate BgqbjrqkFkjsxkanrFdspzyx25/12/2019EmploymentAnswer Date YlscbkzzFehsfyubwqMbvfkja98/12/2019Purpose - LifeAnswerDate RecordedPurpose and direction in ssuwUnempnv17/25/2021ex and Gender InformationValueDate RecordedSex Assigned at BirthNot on fileLegal LhwDhuo6711/01/2014 11:25 AM EDT Gender IdentityNot on fileSexual OrientationNot on file Last Filed Vital Signs Vital SignReadingTime TakenCommentsBlood Tbxudihd894/6907 9:51 AM EDT Mheor501010/11/2023 9:51 AM VJBJrrokgsilju11.6 ??C (97.8 ??F)01/22/2017 3:27 PM EDTRespiratory Kuhe351110/11/2023 9:51 AM EDTOxygen Thjeckvuxv859%10/11/2023 9:51 AM EDTInhaled Oxygen Concentration--Sxepko858.1 kg (225 lb)10/11/2023 8:12 AM YNFOopbiu724.3 cm (5' 11 )10/11/2023 8:12 AM EDTBody Mass Index31.38010/11/2023 8:12 AM EDT Plan of Treatment Health MaintenanceDue DateLast DoneCommentsDepression Nnjtzwqxe58/11/1974 DTaP,Tdap and Td Vaccines (1 - Tdap)1980Zoster (Shingles) Vaccine (1 of 2) 07/08/2011dult BMI Xajqtdqyg16/15/22201210/11/2023Tobacco Nnbgwufql04/15/2025 10/11/2023Influenza Uupatcs14/01/268523/, 04/10/2017, 01/01/2015, Additional history existsRSV ( or age 60+ yrs) (1 - 1-dose 75+ series) 2036 [employer] Not on file Insurance * Guarantor: aGnga Miranda TypeRelation to PatientDate of BirthPhone Billing AddressPersonal/PfmrbwRuuy39/11/1961 [place] [id number] * Guarantor: Ganga Miranda TypeRelation to PatientDate of BirthPhone Billing AddressPersonal/LjipwpUazk03/11/1961 [address] [place] [id number] Care Teams Team MemberRelationshipSpecialtyStart DateEnd Date Fidel Reis MD PCP - Nnknhcb58/2/17
--- OUTSIDE RECORDS SUMMARY | 2025-02-07 11:25 | XMS_ITS | Clinical Summary ---
Author Organization [facility] Address [address], [address] [place] [address] Care Team Providers Care Receipt And Report Clerk Name Role Phone Fidel Reis MD Primary Care Provider + Allergies Active AllergyReactionsCriticalityNoted DfoqJjsunuqzUkiolxpsdk23/25/2016 States had kidney issues after taking Medications MedicationSigDispense QuantityRefillsLast FilledStart DateEnd DateStatus lisinopril (PRINIVIL;ZESTRIL) 20 MG tablet Take 0.5 tablets by mouth dailyActive fenofibrate (TRICOR) 145 MG tablet fenofibrate nanocrystallized 145 mg tablet TAKE 1 TABLET BY MOUTH AT BEDTIMEActive glipiZIDE (GLUCOTROL) 10 MG tablet glipizide 10 mg tablet TAKE 1 TABLET BY MOUTH TWICE DAILYActive sodium hypochlorite (DAKINS) 0.125 % SOLN external solution Apply topically daily Use on the Curlex gauze dressings changed once daily on the sacrococcygeal wound and buttock wounds 473 mL ctive atenolol (TENORMIN) 100 MG tablet Take 1 tablet by mouth daily 30 tablet ctive citalopram (CELEXA) 40 MG tablet Take 1 tablet by mouth daily 30 tablet ctive amLODIPine (NORVASC) 10 MG tablet Take 1 tablet by mouth daily 30 tablet ctive Multiple Vitamin (MULTIVITAMIN) TABS tablet Take 1 tablet by mouth daily 30 tablet ctive CMC-Calcium Alginate-Silver (TEGADERM ALGINATE AG DRESSING) 4 X 5 PADS Apply 1 each topically daily Right ankle and foot open wounds. Then cover with Kerlex and Benton 25 each ctive Gauze Pads & Dressings (KERLIX GAUZE ROLL MEDIUM) MISC 2 each by Does not apply route daily 96 each ctive ferrous sulfate (IRON 325) 325 (65 Fe) MG tablet Take 1 tablet by mouth daily (with breakfast) 90 tablet ctive JANUVIA 100 MG tablet Take 1 tablet by mouth daily06/25/2022ctive oxybutynin (DITROPAN XL) 15 MG extended release tablet Take 1 tablet by mouth daily 30 tablet ctive Active Problems Patient Care Coordination No te Formatting of this note migh t be different from the original. FASHION ARTIST: KERRI HARTMAN PH: [phone] EXT: [phone] FAX : [phone] [facility] Ph. [phone] ProblemNoted DateDiagnosed DatePostprocedural stricture of overlapping sites of urethra in male07/06/2022Iron deficiency uykkzq4306/26/2022cute kidney injury 06/25/2022ressure injury of right ankle, stage 403 Overview (06/24/2022): Fibular malleolus Acute kidney injury superimposed on CKD06/23/2022bnormal EKG006/23/2022 Neurogenic jpekefu7006/23/20228854Lncxgktcksph83/27/2023MSSA (methicillin susceptible Staphylococcus aureus) higtdxjji44/02/2018 Overview (05/28/2017): RLE Decubitus ulcer of coccygeal region, stage 4014923Dpiqskvgfy37/11/2018 Bacterial xufjdcxnd17/22/2017Morbid obesity due to excess kpiqxjmt11/06/2017 Acute on chronic renal kpkcaqo0812/30/2016Open wound of right ankle12/30/2016 Enterococcus faecalis hdltpwpay29/02/2017Skin ulcer of right heel with fat layer cibtbjg9709/02/2016Mixed pefqjzpgglbqkh36/28/2788Exweakvgxrfd89/28/2016Skin ulcer of right ankle with fat layer pmrulmv7504/25/2015 Overview (04/25/2015): Lateral ankle @ fibular malleolus Decubitus ulcer of coccygeal emdgfz7607/19/2013Cauda equina nbhmfqyl44/12/2012 Overview (12/03/2014): replace inactive diagnosis Diabetes qseyqduo47/05/4871Zjnrkhucnp75/15/2011Open wound of knee, leg (except thigh), and ankle, npbjcxsfarl05/30/2011HypertensionDepressionOsteomyelitis of right footOsteomyelitis of ankle or foot, right, acute Resolved Problems ProblemNoted DateDiagnosed DateResolved DateAcute hematogenous osteomyelitis of right footAbscess of right foot including toes11/04/2016 01/13/2017 Overview (11/04/2016): Lateral 5th MPJ Skin ulcer of right midfoot region with fat layer ubvqtag04 Overview (10/08/2016): Lateral 5th MPJ Sepsis due to methicillin resistant Staphylococcus aureus (MRSA)09/09/2016 05/26/2017Ulcer of right midfoot with fat layer izfwzzb45 Overview (09/02/2016): Right 5th MPJ Skin ulcer of right calf with fat layer bhvevst01Cellulitis of right lower eaaihryxy94Cellulitis and abscess of leg, except footCellulitis of right leg09/02/2016 Immunizations ImmunizationAdministration DatesNext DueInfluenza Vaccine, unspecified ipnybotfiii82/01/2016Influenza, FLUARIX, FLULAVAL, FLUZONE (age 6 mo+) and AFLURIA, (age 3 y+), Quadv PF, 0.5mL04/10/2017 Social History Tobacco UseTypesPacks/DayYears UsedDateSmoking Tobacco: NeverSmokeless Tobacco: Never Tobacco Cessation:Counseling Given: Not Answered Alcohol UseStandard Drinks/WeekCommentsNo0 (1 standard drink = 0.6 oz pure alcohol)AUDIT-CAnswerDate RecordedQ1: How often do you have a drink containing alcohol?Never06/22/2022Q2: How many drinks containing alcohol do you have on a typical day when you are drinking?Patient does not drink06/22/2022Q3: How often do you have six or more drinks on one occasion?Never06/22/2022Interpersonal Safety Domain Source: IP Abuse ScreeningAnswerDate RecordedHow often does anyone, including family and friends, physically hurt you?Not on file2022 How often does anyone, including family and friends, scream or curse at you?Not on file2022How often does anyone, including family and friends, insult or talk down to you?Not on 2022How often does anyone, including family and friends, threaten you with harm?Not on 2022Read-Only, Retired: Physical QxrpgXktvjs82/11/2023Read-Only, Retired: Verbal IubsgUjamyy49/11/2023 Read-Only, Retired: Emotional mhqifDlmlob41/11/2023Read-Only, Retired: Financial HcaaeWetghx01/11/2023Read-Only, Retired: Sexual ojclnBxztgx53/11/2023Sex and Gender InformationValueDate RecordedSex Assigned at BirthNot on fileLegal Sex Male05/08/2012 10:15 PM ESTGender IdentityNot on fileSexual OrientationNot on file Last Filed Vital Signs Vital SignReadingTime TakenCommentsBlood Qwfgcyuu595/6706 10:34 AM EDT Zfzvc192009/25/2022 10:34 AM DNRNofbyxgwzcm49.5 ??C (97.7 ??F)09/25/2022 10:34 AM EDTRespiratory Kjhr7027 1:15 PM EDTOxygen Pltnkkrjlv62%2022 1:15 PM EDTInhaled Oxygen Concentration--Rpjyir564.4 kg (250 lb)09/25/2022 10:34 AM VPMPkxhwa131.3 cm (5' 11 )09/25/2022 10:34 AM EDTBody Mass Index34.8706 10:34 AM EDT Plan of Treatment Health MaintenanceDue DateLast DoneCommentsDepression Bghscvdfex20/11/1974HIV ayyhwn9807/07/1976Diabetic retinal exam07/08/1979Hepatitis C rbsijq0607/08/1979 DTaP/Tdap/Td vaccine (1 - Tdap)1980Pneumococcal 50+ years Vaccine (1 of 2 - PCV)1980Fecal-DNA (Cologuard): Average risk2006Sigmoidoscopy/CT /11/2007Shingles vaccine (1 of 2)07/08/2011Diabetic Alb to Cr ratio (uACR) testDiabetic foot exam Respiratory Syncytial Virus (RSV) or age 60 yrs+ (1 - Risk 60-74 years 1-dose series)2021nnual Wellness Visit (Medicare)02/22/2023Lipids , 04/25/2015, 04/25/2015FIT/FOBT: Average risk06/26/2023 06/25/20226417Ddgnreywkch80, 06/26/2022olorectal Cancer Screen 4A1C test (Diabetic or Prediabetic)/01/2023, 04/09/2017, 12/23/2016, Additional history existsGFR test (Diabetes, CKD 3-4, OR last GFR 15-59), 07/02/2022, 06/25/2022, Additional history existsFlu vaccine (#1)/, 01/28/2016COVID-19 Vaccine ( - season)2024Hepatitis A vaccineAged OutNo longer eligible based on patient's age to complete this topicHepatitis B vaccineAged OutNo longer eligible based on patient's age to complete this topicHib vaccineAged OutNo longer eligible based on patient's age to complete this topicMeningococcal (ACWY) vaccineAged OutNo longer eligible based on patient's age to complete this topicMeningococcal B vaccineAged OutNo longer eligible based on patient's age to complete this topicPolio vaccineAged OutNo longer eligible based on patient's age to complete this topic Goals GoalPatient Goal TypeAssociated ProblemsRecent ProgressPatient-Stated?Author Blood Pressure < 140/90 Blood Jzirskmr831/67(09/25/2022 10:34 AM EDT)Iesha Lyons RN non smoker LifestyleOn track(07/31/2015 4:00 PM EDT)Iesha Lyons RN daily aspirin LifestyleNot on track(07/31/2015 4:00 PM EDT)Iesha Lyons RN LDL CALC < 100 Result ComponentNoRuIesha carmona RN HEMOGLOBIN A1C < 7.0 Result Component7.6(2022 10:47 AM EDT)Iesha Lyons RN Medical Devices ImplantedTypeAreaManufacturerDevice IdentifierShelf Expiration DateModel / Serial / LotGraft Subst Resorbable Mini 5cc Implanted:Qty: 1 on 12/25/2016 by Gabriel Haile DPM at [facility]/Graft/Tissue/Human/SynthRight: Ap[id number] / / [id number]:tobramyicin recostituted with 10ml normal saline ref # [id number] exp 07/27/2018 lot # [id number] Procedures Procedure NamePriorityDate/TimeAssociated DiagnosisCommentsBASIC METABOLIC PANEL Sivrzja9509/18/2022 1:12 PM EDT Cauda equina syndrome (HCC) Neurogenic bladder Urinary retention Urinary incontinence without sensory awareness HEMOGLOBIN V8LQuiy [employer]quest Label 2022 10:47 AM EDT COLONOSCOPY UFXIVHWDVXuwpgtq04/31/2023 7:28 AM EDT BLOOD OCCULT STOOL DIAGNOSTICSunquest Label 06/25/2022 7:45 PM EDT LIPID VNMWHCfvoebx18/28/2023 6:40 AM EDT MICROALBUMIN, URSunquest Label Print04/24/2015 11:32 PM EST from Last 3 Months or Most Recently Relevant to Health Maintenance Results * (ABNORMAL) Basic Metabolic Panel (09/18/2022 1:12 PM EDT)ComponentValueRef RangeTest MethodAnalysis TimePerformed AtPathologist EkzrkocghXxsmsge435(H)70 - 99 mg/dL09/18/2022 1:12 PM [facility] JPMZBT21(H)8 - 23 mg/dL09/18/2022 1:12 PM [facility] LABCreatinine1.25(H) 0.70 - 1.20 mg/dL09/18/2022 1:12 PM [facility] LABEst, Glom Filt Rate>60>60 mL/min/1.03c65009/18/2022 1:12 PM [facility] LABComment: ? These results are not intended for use in patients <18 years of age. ? eGFR results are calculated without a race factor using the 2020 CKD-EPI equation. Careful clinical correlation is recommended, particularly when comparing to results calculated using previous equations. The CKD-EPI equation is less accurate in patients with extremes of muscle mass, extra-renal metabolism of creatine, excessive creatine ingestion, or following therapy that affects renal tubular secretion. BUN/Creatinine Ratio26(H) - 1:12 PM [facility] LABCalcium9.38.6 - 10.4 mg/dL09/18/2022 1:12 PM [facility] OBTCyqwdm209860 - 144 mmol/L09/18/2022 1:12 PM [facility] LABPotassium4.13.7 - 5.3 mmol/L09/18/2022 1:12 PM [facility] HPGMmjaigqv00880 - 107 mmol/L09/18/2022 1:12 PM [facility] YGNXN75825 - 31 mmol/L09/18/2022 1:12 PM [facility] LABAnion Beu233 - 17 mmol/L09/18/2022 1:12 PM [facility] LABSpecimen (Source)Anatomical Location / LateralityCollection Method / VolumeCollection TimeReceived TimeBLOOD SPECIMEN / Xzacwok2609/18/2022 1:12 PM EDT 09/18/2022 1:13 PM EDT Narrative Authorizing ProviderResult TypeResult StatusBethjennifer Bradley TECHNICAL SALES REPRESENTATIVE - PODOPEDIATRICIAN CHEMISTRY ORDERABLESFinal ResultPerforming OrganizationAddressCity/State/ZIP CodePhone Number [facility] [address] [phone] * (ABNORMAL) Hemoglobin A1C (2022 10:47 AM EDT)ComponentValueRef RangeTest MethodAnalysis TimePerformed AtPathologist SignatureHemoglobin A1C7.6(H)4.0 - 6.0 %2022 10:47 AM EDTMERCY LABORATORIESEstimated Avg Fhpvbnz738dg/dL 2022 10:47 AM EDTMERCY LABORATORIESComment: The ADA and AACC recommend providing the estimated average glucose result to permit better patient understanding of their HBA1c result. Specimen (Source)Anatomical Location / LateralityCollection Method / Volume Collection TimeReceived TimeBLOOD SPECIMEN / Yibfzxp2307/07/2022 10:47 AM EDT 2022 10:51 AM EDT Narrative Authorizing ProviderResult TypeResult StatusMichael Brelynette TECHNICAL SALES REPRESENTATIVE - SHIFT STACKER CHEMISTRY ORDERABLESFinal ResultPerforming OrganizationAddressCity/State/ZIP CodePhone Number [facility] [address] [phone] [phone] * Colonoscopy (06/26/2022 7:28 AM EDT)Specimen (Source)Anatomical Location / LateralityCollection Method / VolumeCollection TimeReceived Time Narrative Epic, User - 06/26/2022 7:28 AM EDT No dictation Authorizing ProviderResult TypeResult StatusVivian N Alan MDENDOSCOPY ORDERABLESFinal Result * Blood occult stool #1 (06/25/2022 7:45 PM EDT)ComponentValueRef RangeTest MethodAnalysis TimePerformed AtPathologist SignatureOccult Blood, Stool #1 SSEFMPSXBEGVXYSB55/30/2023 7:45 PM [facility] LABDate, Stool #[id number]/25/2022 7:45 PM [facility] LABComment: 30 23 Time, Stool #11,[id number]/25/2022 7:45 PM [facility] Specimen (Source)Anatomical Location / LateralityCollection Method / Volume Collection TimeReceived TimeSTOOL SPECIMEN / Scszlsb6006/25/2022 7:45 PM EDT 06/25/2022 7:52 PM EDT Narrative Authorizing ProviderResult TypeResult StatusShirjose Ritchie TECHNICAL SALES REPRESENTATIVE - PODOPEDIATRICIAN BODY FLUIDS AND STOOLS ORDERABLESFinal ResultPerforming OrganizationAddress City/State/ZIP CodePhone Number [facility] [address] [phone] * (ABNORMAL) Lipid Panel (06/23/2022 6:40 AM EDT)ComponentValueRef RangeTest MethodAnalysis TimePerformed AtPathologist LvormjormOyofkhmxamj015<200 mg/dL 06/23/2022 6:40 AM EDTMERCY LABORATORIESComment: Cholesterol Guidelines: <200 Desirable 200-240 ??Borderline >240 Undesirable HDL28(L)>40 mg/dL06/23/2022 6:40 AM EDTMERCY LABORATORIESComment: HDL Guidelines: <40 Undesirable 40-59 ?Borderline >59 Desirable LDL Fowlahwavgn128 - 130 mg/dL06/23/2022 6:40 AM EDTMERCY LABORATORIESComment: LDL Guidelines: <100 Desirable 100-129 ?? Near to/above Desirable 130-159 ?? Borderline >159 Undesirable Direct (measured) LDL and calculated LDL are not interchangeable tests. Chol/HDL Ratio5.3(H)<503 6:40 AM EDTMERCY LABORATORIESComment: Qvzwczorinnnc704<150 mg/dL06/23/2022 6:40 AM EDTMERCY LABORATORIESComment: Triglyceride Guidelines: <150 Desirable 150-199 ??Borderline 200-499 ??High >499 Very high Based on AHA Guidelines for fasting triglyceride, December 2011. Specimen (Source)Anatomical Location / LateralityCollection Method / Volume Collection TimeReceived TimeBLOOD SPECIMEN / Qijdigp4006/23/2022 6:40 AM EDT 06/23/2022 5:47 PM EDT Narrative Authorizing ProviderResult TypeResult StatusZoila GUERREROCOSHOCTON REGIONAL MEDICAL CENTEREMISTRY ORDERABLESFinal ResultPerforming OrganizationAddressCity/State/ZIP CodePhone Number [facility] [address] [place] [address], [facility] [phone] [address], [facility] [phone] * (ABNORMAL) Microalbumin, Ur (04/24/2015 11:32 PM EST)ComponentValueRef Range Test MethodAnalysis TimePerformed AtPathologist SignatureAlbumin Phyrb947(H) <21 mg/L04/25/2015 1:13 AM ESTPN LABCreatinine, Ur274.6(H)28.0 - 217.0 mg/dL 04/25/2015 12:27 AM ESTPN LABMicroalb/Band Builder. Mtrrg590esr/mg creat04/25/2015 1:13 AM ESTPN LABUrine Microalbumin Vgpdap2404/25/2015 1:13 AM ESTPN LAB Comment: REFERENCE RANGE NORMAL ? = 0 - 13 ?? mcg/mg creat BORDERLINE = 14 - 30 ??mcg/mg creat ABNORMAL = >30 mcg/mg creat Performed at [address] [address] ([phone] Specimen (Source)Anatomical Location / LateralityCollection Method / Volume Collection TimeReceived FvhnXzclx92/27/2016 11:32 PM EST04/24/2015 11:46 PM EST Narrative Authorizing ProviderResult TypeResult StatusMarshal NAPIER ORDERABLESFinal ResultPerforming OrganizationAddressCity/State/ZIP CodePhone Number [facility] [address] [place] [address], [facility] [phone] [facility] from Last 3 Months or Most Recently Relevant to Health Maintenance Additional Health Concerns InfectionOnset DateLast IndicatedMRSA Comment:Right ankle 01/07/2012 Insurance * Guarantor: Ganga Miranda TypeRelation to PatientDate of BirthPhone Billing AddressPersonal/CdupstTdto48/11/1961 [facility] [address] [place] [address] * Guarantor: Ganga Miranda TypeRelation to PatientDate of BirthPhone Billing AddressPersonal/RxtyuhNslb07/11/1961 [facility] [address] [place] [address] Advance Directives * Full Code (Latest Code Status on File) Date ActivatedDate InactivatedComments2022 9:37 AM2022 3:54 PM * Full Code Date ActivatedDate InactivatedComments06/22/2022 8:18 PM06/26/2022 7:20 PM * Full Code Date ActivatedDate InactivatedComments06/14/2017 10:11 AM06/14/2017 1:27 PM * Full Code Date ActivatedDate InactivatedComments04/09/2017 1:19 AM1 11:55 PM * Full Code Date ActivatedDate InactivatedComments12/25/2016 1:27 PM10 4:28 PM NameRelationshipHealthcare Agent RelationshipCommunicationEve AllowaySpouse Primary Decision Maker* Care Teams Team MemberRelationshipSpecialtyStart DateEnd Date Fidel Reis MD [facility]07/03/15
--- OUTSIDE RECORDS SUMMARY | 2025-02-07 11:35 | XMS_ITS | CCD ---
Author Organization [facility] CliniSyoh Care Team Providers Care [employer] Purifier Name Role Phone WESTONMICHAELA Unavailable Unavailable NADERER, FIDEL LIEBERMAN Unavailable Unavailabl e AOUAD, THIAGO Gaona Unavailable Unavailable BLOOD, GANGA Gutiérrez Unavailable Unavailable BRAMBILA, JAI Chowdhury Unavailable Unavailable SCHNIRREILEEN, WILLIAM Unavailable Unavaila ble KHADAR PULLIAM Unavailable Unavailable NADERER, DR FIDEL Tellez Admitting Unavailable NADERER, DR FIDEL Tellez Attending Unavailable NADERER, DR FIDEL Tellez Primary Care Unavailable NADERER, DR FIDEL Tellez Consulting Unavailable BRAR, DR CATHY Edwards Admitting Unavailable BRAR, DR CATHY Edwards Attending Unavailable NADERER, DR FIDEL Tellez Primary Care Unavailable PAPPASJSEUSITA Consulting Unavailable BRAR, DR CATHY Edwards Consulting Unavailable BRAR, DR CATHY Edwards Admitting Unavailable BRAR, DR CATHY Edwards Attending Unavailable NADERER, DR FIDEL Tellez Primary Care Unavailable TETON, DR KHADAR Edwards Consulting Unavailable BRAR, DR CATHY Edwards Consulting Unavailable MD Fidel Abbott Primary Care Provider [phone] MD Cathy Brar Attending Provider [phone] Fidel Abbott MD Primary Care Provider MD Fidel Abbott Primary Care Provider MD Cathy Brar Attending Provider [phone] Fidel Abbott MD Primary Care Provider SHELLY MONDRAGON Referring Unavail able NADERERFIDEL Primary Care Unavailabl e ASHLEE ERWIN Referring Unavailable NADERER, FIDEL LIEBERMAN Primary Care UnavailASHLEE Juan Referring Unavailable NADERERFIDEL Primary Care Unavailabl e ANGELES NAGY Referring Unavailable NADERER, FIDEL LIEBERMAN Primary Care Unavailabl e JEAN, ANGELES Attending Unavailable JEAN, ANGELES Admitting Unavailable NADERER, FIDEL LIEBERMAN Primary Care Unavailabl e IACOB, MATIAS Admitting Unavailable ROMARIO, MATIAS Attending Unavailable ARMOND, MARY Sol Consulting Unavailable NADERER, FIDEL LIEBERMAN Primary Care Unavailabl e JEAN, ANGELES Consulting Unavailable BREMYER, YAKOV W Consulting Unavailable CIARAROSIE Consulting Unavailable AHMAD, MICHELLE Garcia Consulting Unavailable MILLY, KATERINA Grijalva Consulting Unavailable NADERER, FIDEL LIEBERMAN Primary Care Unavailabl e JEAN, ANGELES Referring Unavailable NADEREPratik, FIDEL LIEBERMAN Primary Care Unavailabl e PARSELL, ASHLEE Merritt Referring Unavailable NADEREPratik, FIDEL Primary Care Physician Milena NAZARIO, Fidel Primary Care Provider Fidel Abbott MD Unavailable Fidel Abbott MD Primary Care Provider [phone] MD Fidel Abbott Primary Care Provider MD Cathy Brar Attending Provider CRISTIANA Moffett Attending Provider [phone] CRISTIANA Hernandes Attending Provider Khadar Guerrero Referring Unavailable MILENA, FIDEL Primary Care Unavailable FIDEL ABBOTT Referring Unavailable Fidel Abbott MD Primary Care Provider Fidel Abbott MD Unavailable Fidel Abbott MD Primary Care Provider Milena NAZARIO, Fidel Primary Care Provider Aleta NAZARIO Nina Attending Provider Cathy Brar MD Attending Provider [phone] Cathy Brar MD Attending Provider Fidel Abbott MD Primary Care Provider [phone] Fidel Abbott MD Unavailable FIDEL ABBOTT Attending Unavailable MILENA, FIDEL Attending Unavailable FIDEL ABBOTT Attending Unavailable Gonzalez MA, Saebel Unavailable Unavailable Milena NAZARIO, Fidel Primary Care Provider Cathy Brar MD Attending Provider Latha CAICEDO-Jeffrey, Tami Christie Attending Provider ANGIE CHRISTY Attending Unavailable Jovanny VILLA Attending Unavailable Jovanny VILLA Attending Unavailable Milena NAZARIO, Fidel Unavailable Milena NAZARIO, Fidel Primary Care Provider Milena NAZARIO, Fidel Unavailable Carlos LUQUE, Alvin Unavailable Milena NAZARIO, Fidel Primary Care Provider Milena NAZARIO, Fidel Primary Care Provider Milena NAZARIO, Fidel Primary Care Provider Nina River MD Attending Provider Jesus Hernandes DPM Attending Provider [phone] Cathy Brar MD Attending Provider [phone] Moisés Morelos MD Attending Provider Jesus Hernandes DPM Referring Provider Milena NAZARIO, Fidel Primary Care Provider Nina River MD Attending Provider Jesus Hernandes DPM Attending Provider Cathy Brar MD Attending Provider Moisés Morelos MD Attending Provider [phone] Jesus Hernandes DPM Referring Provider Fidel Abbott MD Attending Provider Brar, Cathy Admitting Unavailable Brar, Cathy Attending Unavailable Fidel Abbott Primary Care Unavailable Aleta, Nina Admitting Unavailable Aleta, Nina Attending Unavailable Fidel Abbott Primary Care Unavailable Brar, Cathy Admitting Unavailable Brar, Cathy Attending Unavailable Fidel Abbott Primary Care Unavailable Brar, Cathy Admitting Unavailable Brar, Cathy Attending Unavailable Fidel Abbott Primary Care Unavailable Fidel Abbott Primary Care Unavailable Jesusita Navarro Admitting UnavailJesusita Nunn Attending Unavailradha chowdhury Allergies Allergy ClassificationReported Allergen(s)Allergy TypeDate of OnsetReaction(s) Facility (13 sources)Vancomycin; Translations: [VANCOMYCIN]Drug Kvkyozu01-92-5477Jsfr kidneys [facility] (20 sources)VancomycinDrug Nwuiwaq74-83-1958Hqvrq, Unknown, Other (See Comments) [facility] (20 sources)omadacycline; Translations: [omadacycl]Drug -11-8678Wjgyn pain (finding)[facility] HospitalComment on above:kidney pain (10 sources)ferrous sulfate; Translations: [ferrous sulfate]Drug Allergy 30-77-3995FitngbfNytprkigrOur [facility] of [facility] (1 source)VancomycinDrug Umurcxn64-90-4557RcvnskgrxC[facility] Medications Current Medications MedicationDrug Class(es)DatesSig (Normalized)Sig (Original)Acetaminophen (1 source)Start: 38-65-1611gfqufhxtctjze (TYLENOL) tablet 650 mgatenolol 100 mg oral tablet (20 sources)beta-Adrenergic BlockerStart: 75-06-9124cxsv 100 mg by mouth once ajaqn055 mg, Oral, DAILY, First dose on Wed06/23/22 at 0900, Until Discontinued Start: 06-29-2016 End: 58-75-0000aztj 1 tablet by mouth once daily in the morningAtenolol 100 mg Tablet Active 100 MG PO Every morning November 02, 2017 11:00pm HTN Complies with drug therapy End: 03-32-4434nitl 2 tablets by mouth once dailyatenolol (TENORMIN) 50 MG tablet Take 100 mg by mouth daily. 0 06/26/2022 Discontinued (Stop Takingat Discharge)atorvastatin 40 mg oral tablet (20 sources)HMG-CoA Reductase InhibitorStart: 09-10-6888qzdn 1 tablet by mouth once dailyatorvastatin 40 mg Tab 40 mg = 1 tab(s), Oral, Daily Start Date: 01/15/25 Status: Ordered Repeat number: 1Start: 04-06-2023 End: 34-13-4205edek 1 tablet by mouth in the morningatorvastatin (Lipitor) 40 MG tablet Indications: Dyslipidemia TAKE 1 TABLET BY MOUTH IN THE KMQJTOJ23 tablet 5 11/22/2024 Activecitalopram 40 mg oral tablet (20 sources)Serotonin Reuptake InhibitorStart: 81-87-0167piip 40 mg by mouth once daily40 mg, Oral, DAILY, First dose on Wed06/23/22 at 0900, Until DiscontinuedStart: 09-22-2016 End: 42-14-7095tnyj 1 tablet by mouth once daily in the morningCitalopram (Celexa) 40 mg Tablet Active 40 MG PO Every morning December 06, 2016 11:00pm Depression Complies with drug therapy End: 31-83-6714jjfg 2 tablets by mouth once dailycitalopram (CELEXA) 20 MG tablet Take 40 mg by mouth daily 0 06/26/2022 Discontinued (Stop Taking at Discharge)clindamycin 300 mg oral capsule (15 sources)Lincosamide AntibacterialStart: 05-13-2023 End: 22-83-5694tygz 1 capsule by mouth in the morning, then take 1 capsule by mouth in the evening, then take 1 capsule by mouth at bedtimeclindamycin (Cleocin) 300 MG capsule Indications: Abscess of toe, right Take 1 capsule (300 mg) by mouth in the morning and 1 capsule (300 mg) in the evening and 1 capsule (300 mg) before bedtime. Doall this for 10 days. 30 capsule 0 05/13/2023 05/23/2023 ActiveStart: 06-26-2022 End: 35-93-2763wabn 1 capsule by mouth three times dailyclindamycin (CLEOCIN) 300 MG capsule Take 1 capsule by mouth 3 times daily for 10 days 30 capsule 0 06/26/2022 07/06/2022 ActiveStart: 06-23-2022 End: 63-17-7211umhjjdivqli (CLEOCIN) 600 mg in dextrose 5 % 50 mL IVPBStart: 07-28-2018 End: 17-07-1690Oshkyouxryp Hcl 150 mg Capsule Discontinued July 27, 2018 11:00pm November 17, 2018 9:14amStart: 07-28-2018 End: 50-59-4752Khwersngbkx Hcl Discontinued July 28, 2018 12:00am November 17, 2018 10:14amCMC-Calcium Alginate-Silver (TEGADERM ALGINATE AG DRESSING) 4 X 5 PADS (3 sources)Start: 15-31-3199ADZ-Calcium Alginate-Silver (TEGADERM ALGINATE AG DRESSING) 4 X 5 PADS Apply 1 each topically daily Right ankle and foot open wounds. Then cover with Kerlex and Olga 25 each 3 06/26/2022 ActiveGauze Pads & Dressings (KERLIX GAUZE ROLL MEDIUM) MISC (3 sources)Start: 37-79-7805Qjqyg Pads & Dressings (KERLIX GAUZE ROLL MEDIUM) MISC 2 each by Does not apply route daily 96 each 2 06/26/2022 ActiveglipiZIDE 10 mg oral tablet (20 sources)SulfonylureaStart: 06-30-2018 End: 39-37-6958piul 1 tablet by mouth twice dailyGlipizide 10 mg Tablet Active 10 MG PO Twice daily June 29, 2018 11:00pm Complies with drug therapy hydrOXYzine hydrochloride 50 mg oral tablet (20 sources)AntihistamineStart: 15-87-1015ztrx 1 tablet by mouth four times daily as neededHydroxyzine Hcl 50 mg tablet Active 50 MG PO Four times daily as needed for itching January 30, 2025 10:58am Complies with drug therapyStart: 55-00-9472cnam 1 tablet by mouth four times daily as neededhydrOXYzine hydrochloride 50 mg oral tablet 50 mg = 1 tab(s), Oral, QID, TAKE 1 TABLET BY MOUTH 4 TIMES DAILY NEEDED FOR ITCHING Start Date: 01/15/25 Status: Ordered Repeat number: 1Start: 50-37-0026fywa 1 tablet by mouth four times daily as neededhydrOXYzine HCl (Atarax) 50 MG tablet Indications: Pruritus TAKE 1 TABLET BY MOUTH 4 TIMES DAILY ASNEEDED FOR ITCHING 30 tablet 09/22/2024 ActiveStart: 08-30-2024 End: 59-95-4161rynv 1 tablet by mouth once daily at bedtimeHydroxyzine Hcl 50 mg tablet Discontinued 50 MG PO Daily at bedtime August 29, 2024 11:00pm January 30, 2025 10:59amStart: 07-18-2024 End: 56-27-6889xyqm 1 tablet by mouth four times daily as neededhydrOXYzine HCl (Atarax) 50 MG tablet Indications: Pruritus Take 1 tablet (50 mg) by mouth 4 (four)times a day as needed for itching 120 tablet 5 07/31/2024 ActiveStart: 02-01-2024 End: 09-89-7054fdfn 1 tablet by mouth four times daily as neededhydrOXYzine HCl (Atarax) 50 MG tablet Indications: Pruritus TAKE 1 TABLET BY MOUTH 4 TIMES DAILY ASNEEDED FOR ITCHING 30 tablet 5 03/13/2024 ActiveStart: 01-17-2024 End: 50-42-7287hppw 1 tablet by mouth four times daily as neededhydrOXYzine HCl (Atarax) 50 MG tablet Indications: Pruritus Take 1 tablet (50 mg) by mouth 4 (four)times a day as needed for itching 30 tablet 2 01/17/2024 01/20/2024 DiscontinuedStart: 67-69-0136delw 1 tablet by mouth four times daily as needed hydrOXYzine HCl (Atarax) 25 MG tablet Indications: Pruritus Take 1 tablet (25 mg) by mouth 4 (four)times a day as needed for itching 120 tablet 3 11/18/2023 Activesodium hypochlorite 1.25 mg/ml topical spray (20 sources)Start: 23-46-3275dubkkt hypochlorite (DAKINS) 0.125 % SOLN external solution Apply topically daily Use on the Curlexgauze dressings changed once daily on the sacrococcygeal wound and buttock wounds 473 mL 2 06/26/2022 Active Start: 47-87-3054hssbvf hypochlorite (DAKINS) 0.125 % external solutionStart: 12-07-2016 End: 04-65-5096Ljoagq Hypochlorite (Dakin's Solution) 0.25 % solution Discontinued 1 APPLIC TOPICAL Daily 473 2 October 06, 2017 11:00pm November 03, 2017 1:58pmIron (3 sources)Start: 15-13-4979BIWW 65MG TAB IRON 65MG TAB Start Date: 11/09/22 Status: Ordered Repeat number: 1Start: 92-37-2284OQEV 65MG TAB IRON 65MG TAB Start Date: 11/09/22 Status: Orderedlisinopril 20 mg oral tablet (20 sources)Angiotensin Converting Enzyme InhibitorStart: 97-67-6861fijo 1 tablet by mouth once dailyLisinopril 20 mg tablet Active 20 MG PO Daily January 30, 2025 12:00am Complies with drug therapyStart: 10-23-2024 End: 67-43-0586ntnm 1 tablet by mouth once dailylisinopril 20 MG tablet Indications: Benign hypertension Take 1 tablet by mouth once daily 30 tablet 5 11/22/2024 ActiveStart: 05-83-5442dgtb 1 tablet by mouth once dailylisinopril 20 MG tablet Indications: Benign hypertension Take 1 tablet by mouth once daily 30 tablet 08/28/2024 ActiveStart: 23-79-5353rwyl 1 tablet by mouth once daily lisinopril 20 MG tablet Indications: Benign hypertension (CMS/HCC) Take 1 tablet by mouth once daily 30 tablet 07/24/2024 ActiveStart: 27-70-1045irlk 1 tablet by mouth once dailylisinopril 20 MG tablet Indications: Benign hypertension (CMS/HCC) Take 1 tablet by mouth once daily 30 tablet 05/22/2024 ActiveStart: 93-09-0608yvfk 10 mg by mouth once dailylisinopril (PRINIVIL,ZESTRIL) 20 mg tablet Take 10 mg by mouth daily. 01/01/2017 ActiveStart: 12-07-2016 End: 87-28-3776zqzd 2 tablets by mouth once daily in the morningLisinopril 10 mg Tablet Discontinued 20 MG PO Every morning December 06, 2016 11:00pm January 30, 2025 10:58am HTNStart: 15-81-4497jrfe 20 mg by mouth once daily in the morningLisinopril Active 20 MG PO Every morning December 07, 2016 12:00amtake 0.5 tablet by mouth once dailylisinopril (PRINIVIL;ZESTRIL) 20 MG tablet Take 0.5 tablets by mouth daily 0 ActiveMultiple Vitamin (MULTIVITAMIN) TABS tablet (3 sources)Start: 78-38-7314gyse 1 tablet by mouth once dailyMultiple Vitamin (MULTIVITAMIN) TABS tablet Take 1 tablet by mouth daily 30 tablet 2 06/27/2022 Activemultivitamin 1 tablet (1 source)Start: 05-64-1548fkpwvlytdspk 1 tabletondansetron (ZOFRAN-ODT) disintegrating tablet 4 mg (1 source)Start: 62-63-4858xsmhqeyqwsa (ZOFRAN-ODT) disintegrating tablet 4 mg predniSONE 50 mg oral tablet (3 sources)Start: 01-17-2024 End: 74-44-0281xzdc 1 tablet by mouth once dailypredniSONE (Deltasone) 50 MG tablet Indications: Pruritus Take 1 tablet (50 mg) by mouth Daily for 6 days 6 tablet 01/17/2024 01/23/2024 ActiveSITagliptin 100 mg oral tablet (20 sources)Dipeptidyl Peptidase 4 InhibitorStart: 07-29-2021 End: 63-04-1156zbrq 1 tablet by mouth once daily in the morningSitagliptin Phosphate (Januvia) 100 mg tablet Active 100 MG PO Every morning July 28, 2021 11:00pm Complies with drug czkpzbe0606 ml sodium chloride 9 mg/ml injection (6 sources)Start: .9 % sodium chloride infusionStart: 06-22-2022 IntraVENous, at 5-250 mL/hr, PRN, if patient receiving piggyback infusions and maintenance fluids are not ordered OR KVO fluids to protect IV site / prevent frequent line interruptions/ long duration, Starting on Wed06/22/22 at 2018 For piggyback infusion, administer at same rate as piggyback for atotal of 25 mL. Enter 25 mL into dose field and piggyback rate into rate field of order. If piggyback is infusing at a rate less than 100 mL/hr, enter 25 mL into dose field and 100 mL/hr into rate field of order. For KVO fluids, enter rate of 20 mL/hr or less into rate field of order.Start: mL, IntraVENous, EVERY 12 HOURS SCHEDULED (2 times per day), First dose on Wed06/22/22 at 2100, U ntil DiscontinuedStart: 59-59-3270gvjq 10 mL intravenously once as ktlimh69 mL, IntraVENous, PRN, Starting on Wed06/22/22 at 2018, Until Discontinued, Line Care, After every IV line useStart: 06-22-2022 End: .9 % sodium chloride bolus Completed/Discontinued Medications MedicationDrug Class(es)DatesSig (Normalized)Sig (Original)acetaminophen 325 mg / HYDROcodone bitartrate 5 mg oral tablet (20 sources)Opioid AgonistStart: 10-02-2024 End: 93-69-6815qjfb 1 tablet by mouth every six hours as needed for pain Hydrocodone-Acetaminophen 5-325 mg tablet Discontinued 1 TAB PO Q6H as needed for pain 28 7 0 October 02, 2024 January 25, 2025 12:18pm Other acute postprocedural pain Other acute postprocedural painStart: 09-04-2021 End: 50-73-8462cqou 1 tablet by mouth every six hours as needed for pain Hydrocodone-Acetaminophen 5-325 mg tablet Discontinued 1 TAB PO Q6H as needed for pain 28 7 0 September 08, 2022 February 06, 2023 9:43pm Sacral back pain Sacrococcygeal disorders, not elsewhere classifiedStart: 11-15-2017 End: 91-86-3735vbrd 1 tablet by mouth every six hours as needed for pain Hydrocodone-Acetaminophen 5-325 mg tablet Discontinued 1 TAB PO Q6H as needed for pain 28 7 0 November 15, 2017 November 20, 2017 11:00pm November 21, 2017 11:01pm Pressure ulcer of sacral region, stage 3amLODIPine (20 sources)Dihydropyridine Calcium Channel BlockerStart: 12-07-2016 End: 63-77-8642Krrsieoelm Discontinued December 07, 2016 12:00am December 08, 2016 2:50pmStart: 12-07-2016 End: 48-91-4895Rdvifpkumh Discontinued December 06, 2016 11:00pm December 08, 2016 1:50pmStart: 06-27-2016 End: 44-40-4845hmmb 1 tablet by mouth once daily in the morningAmlodipine 10 mg Tablet Active 10 MG PO Every morning December 07, 2016 11:00pm HTN Complies with drug therapy End: 76-62-0080udou 2 tablets by mouth once dailyamlodipine (NORVASC) 5 MG tablet Take 10 mg by mouth daily 0 06/26/2022 Discontinued (Stop Taking at Discharge)amoxicillin 500 mg / clavulanate 125 mg oral tablet (20 sources)Penicillin-class AntibacterialStart: 12-01-2022 End: 49-68-9872yvpn 1 tablet by mouth every twelve hoursAmoxicillin-Pot Clavulanate 500-125 mg tablet Discontinued 1 TAB PO Q12H November 30, 2022 11:00pm February 07, 2023 3:16pmStart: 04-30-2020 End: 08-93-3206toxu 1 tablet by mouth twice dailyAmoxicillin-Pot Clavulanate (Augmentin) 875-125 mg Tablet Discontinued 1 TAB PO Twice daily April 30, 2020 12:00am May 06, 2020 6:39pmStart: 10-12-2017 End: 33-46-7142vfna 1 tablet by mouth twice dailyAmoxicillin-Pot Clavulanate (Augmentin) 875-125 mg tablet Discontinued 1 TAB PO Twice daily 28 14 0July 2017 11:00pm October 24, 2017 11:00pm October 25, 2017 11:01pmbetamethasone 0.001 mg/mg topical ointment (11 sources)CorticosteroidStart: 11-17-2018 End: 82-07-2417Mlqhlpdwfwclc Valerate 0.1 % ointment Discontinued 1 APPLIC TOPICAL Daily as needed for skin irritation 45 2 November 17, 2018 9:49am March 23, 2019 11:03am use for 2 wks on and 1 wk off to affected area calcium gluconate 1,000 mg in sodium chloride 0.9 % 100 mL IVPB (1 source)Start: 06-22-2022 End: 61-74-7930ptxcowy gluconate 1,000 mg in sodium chloride 0.9 % 100 mL IVPB cephalexin 500 mg oral capsule (11 sources)Cephalosporin AntibacterialStart: 11-30-2017 End: 84-31-8665qpry 1 capsule by mouth three times dailyCephalexin 500 mg Capsule Discontinued 500 MG PO Three times daily November 29, 2017 11:00pm December 16, 2017 9:12am x10 days as ordered per Dr. Nolascoofloxacin 500 mg oral tablet (2 sources)Quinolone AntimicrobialStart: 04-04-9172mujg 1 tablet by mouth once dailyCipro 500 mg Tab 500 mg = 1 tab(s), Oral, Daily, take one tab day before procedure and one tab after procedure, # 2 tab(s), Refills(s) 0, Pharmacy: [id number], 180, cm, 01/15/25 10:30:00 EDT, Height/Length Dosing Start Date: 01/15/25 Status: Ordered Quantity: 2.0 Unit: tab(s) Repeat number: 1 Start: 38-55-5012jazk 1 tablet by mouth once dailyCipro 500 mg Tab 500 mg = 1 tab(s), Oral, Daily, Take 1 tablet the day before the procedure and 1 tablet after the procedure, # 2 tab(s), Refills(s) 0, Pharmacy: [id number], 180, cm, 11/09/22 13:16:00 EDT, Height/Length Dosing, 113, kg, 11/09/22 13:16:00 EDT, Weight Dosing Start Date: 09/17/23 Status: Ordereddicloxacillin 500 mg oral capsule (11 sources)Penicillin-class AntibacterialStart: 06-01-2017 End: 36-22-6711uaaz 1 capsule by mouth three times dailyDicloxacillin 500 mg Capsule Discontinued 500 MG PO Three times daily June 01, 2017 12:00am August 242017 9:21amdoxycycline hyclate 100 mg oral capsule (11 sources)Tetracycline-class DrugStart: 03-23-2019 End: 62-72-0050avqh 1 capsule by mouth twice dailyDoxycycline Hyclate 100 mg capsule Discontinued 100 MG PO Twice daily 56 28 0 March 23, 2019 12:00am January 02, 2020 10:08amfenofibrate 145 mg oral tablet (20 sources)Peroxisome Proliferator Receptor alpha AgonistStart: 02-13-2023 End: 64-08-9117ebxk 1 tablet by mouth once daily at bedtimeFenofibrate Nanocrystallized 145 mg Tablet Discontinued 145 MG PO Daily at bedtime 0 0 February 13, 2023 12:00am August 30, 2024 11:16amStart: 89-37-5528ixjo 160 mg by mouth once ygwto920 mg, Oral, DAILY, First dose on Wed06/23/22 at 0900, Until Discontinued Substituted for Fenofibrate (Non-Formulary Dose).Start: 12-07-2016 End: 98-38-5392Sanzquwtjad 150 mg Capsule Discontinued 145 MG PO Daily at bedtime December 06, 2016 11:00pm November 19, 2020 10:09am Hyperlipidemia Start: 12-07-2016 End: 58-60-2915lxjh 145 mg by mouth once daily at bedtimeFenofibrate Discontinued 145 MG PO Daily at bedtime December 07, 2016 12:00am November 19, 2020 11:09amStart: 09-22-2016 End: 75-16-5552gjop 1 tablet by mouth once daily at bedtimeFenofibrate Nanocrystallized 145 mg tablet Discontinued 145 MG PO Daily at bedtime November 18, 2020 11:00pm February 07, 2023 3:16pmferrous sulfate 325 mg oral tablet (12 sources)Start: 10-27-2022 End: 94-73-6910emvk 1 tablet by mouth once dailyFerrous Sulfate 325 mg (65 mg iron) tablet Discontinued 325 MG PO Daily October 26, 2022 11:00pm May 04, 2023 11:25amStart: 65-14-0406xgcy 1 tablet by mouth once daily at breakfast ferrous sulfate (IRON 325) 325 (65 Fe) MG tablet Take 1 tablet by mouth daily (with breakfast) 90 tablet 1 06/26/2022 Activegentamicin 0.001 mg/mg topical ointment (20 sources)Start: 11-23-2017 End: 98-52-3555Lckwtxbwbq 0.1 % ointment Discontinued 1 APPLIC TOPICAL Daily 30 3 November 22, 2017 11:00pm May 19, 2018 11:36am apply to ulcers as directedStart: 04-08-2017 End: 50-71-2222Kidzllcpmb 0.1 % ointment Discontinued 1 APPLIC TOPICAL Daily 30 2 April 08, 2017 12:00am November 02, 2017 10:29am apply to sacral ulcer dailygentamicin (GARAMYCIN) 250 mg in sterile water for irrigation 250 mL irrigation (1 source)Start: 06-25-2022 End: 94-87-5318kepzfbsuqs (GARAMYCIN) 250 mg in sterile water for irrigation 250 mL ghhtpzltew2994 ml glucose 500 mg/ml injection (1 source)Start: 06-22-2022 End: 21-11-6511yundluwm 50 % IV solution1 ml heparin sodium, porcine 5000 unt/ml prefilled syringe (1 source)Unfractionated Heparin, Anti-coagulantStart: 92-15-3970kyfvqr 1 dose by subcutaneous injection three times daily5,000 Units, SubCUTAneous, EVERY 8 HOURS SCHEDULED (3 times per day), First dose on Wed06/22/22 at 2200, Until Discontinuedinsulin aspart (NOVOLOG) 100 UNIT/ML injection vial (3 sources) End: 39-92-0292nnuizne aspart (NOVOLOG) 100 UNIT/ML injection vial Inject into the skin 3 times daily (before meals) Sliding scale 0 06/26/2022 Discontinued (Stop Taking at Discharge)insulin aspart (NOVOLOG) 100 UNIT/ML injection vial Inject into the skin 3 times daily (before meals) Sliding scale 0 Suspended insulin aspart, human 100 unt/ml injectable solution (16 sources)Insulin AnalogStart: 12-07-2016 End: 89-10-8007Alzgypr Aspart U-100 (Novolog) 100 unit/mL Solution Discontinued 1 UNITS SUBCUT THREE TIMES DAILY WITH MEALS Protocol: *NOT APPROPRIATE TO USE SCALE IF LESS THAN 3 HOURS SINCE PREVIOUS MEAL AND SCALEDOSE* Condition: Corrective Scale #1 (TDI Condition: Dose/Route: Instructions: Condition: Fingerstick Blood Glucose Dose/Route: Insulin Units Condition: 150-199 mg/dl Dose/Route: 1 unit Condition: 200-249 mg/dl Dose/Route: 2 unit Condition: 250- 299 mg/dl Dose/Route: 3 unit Condition: 300-349 mg/dl Dose/Route: 4 unit Condition: 350-400 mg/dl Dose/Route: 5 unit Condition: greater than 400 mg/dl Dose/Route: 6 unit Instructions: Call Provider December 06, 2016 11:00pm May 19, 2018 11:36am DM Patient not sure of actual corrective scale but felt this was correct Please contact the information source for Protocol det ails.Start: 12-07-2016 End: 00-37-7608msoxvt 1 [IU] by subcutaneous injection three times daily at mealtimeInsulin Aspart U-100 (Novolog) 100 unit/mL Solution Discontinued 1 UNITS SUBCUT THREE TIMES DAILY WITH MEALS December 07, 2016 12:00am May 19, 2018 12:36pm Patient not sure of actual corrective scale but felt this was correct Please contact the information source for Protocol details.Start: 91-87-2807jfensc 2 [IU] by subcutaneous injection three times daily before mealtime, then inject 16 [IU] by subcutaneous injection three times daily before mealtimeinsulin aspart (NovoLOG) 100 unit/mL insulin pen Inject [...] UNITS 450 OR GREATER 16 UNITS 05/29/2016 Activeinsulin glargine 100 unt/ml injectable solution (11 sources)Insulin AnalogStart: 04-13-2017 End: 19-78-4267ztmgttg glargine (LANTUS) 100 UNIT/ML injection vial Inject 45 Units into the skin 2 times daily 1 vial 3 04/13/2017 06/26/2022 Discontinued (Stop Taking at Discharge)Start: 12-07-2016 End: 00-55-2129fkbpfb 50 [IU] by subcutaneous injection twice dailyInsulin Glargine (Lantus) 100 unit/mL Solution Discontinued 50 UNITS SUBCUT Twice daily December 06, 2016 11:00pm September 08, 2022 10:16am DMStart: 48-59-4554ztyrtf 40 [IU] by subcutaneous injection twice dailyinsulin glargine (LANTUS) 100 unit/mL injection Inject 40 Units under the skin 2 (two) times a day.10/14/2016 ActiveInsulin Glargine (Lantus) 100 unit/mL Solution (8 sources)Start: 12-07-2016 End: 04-55-5971quvjih 50 [IU] by subcutaneous injection twice dailyInsulin Glargine (Lantus) 100 unit/mL Solution Discontinued 50 UNITS SUBCUT Twice daily December 06, 2016 11:00pm September 08, 2022 10:16amStart: 12-07-2016 End: 38-95-4201uyjfdj 50 [IU] by subcutaneous injection twice dailyInsulin Glargine (Lantus) 100 unit/mL Solution Discontinued 50 UNITS SUBCUT Twice daily December 07, 2016 12:00am September 08, 2022 11:16amStart: 47-25-9077xkyasu 50 [IU] by subcutaneous injection twice dailyInsulin Glargine (Lantus) 100 unit/mL Solution Active 50 UNITS SUBCUT Twice daily December 07, 2016 12:00amStart: 40-18-2188xeomrh 50 [IU] by subcutaneous injection twice dailyInsulin Glargine (Lantus) 100 unit/mL Solution Active 50 UNITS SUBCUT Twice daily December 06, 2016 11:00pm3 ml insulin lispro 100 unt/ml pen injector (5 sources)Insulin AnalogStart: 05-19-2018 End: 89-95-3266Juahqrw Lispro (Humalog Kwikpen Insulin) 100 unit/mL Insulin Pen Discontinued 0 .ROUTE .COMPLEX May 19, 2018 12:00am September 08, 2022 10:16am SLIDING SCALEInsulin Lispro (Humalog Kwikpen Insulin) 100 unit/mL Insulin Pen (6 sources)Start: 05-19-2018 End: 62-41-3841Izmebuo Lispro (Humalog Kwikpen Insulin) 100 unit/mL Insulin Pen Discontinued 0 .ROUTE .COMPLEX May 19, 2018 12:00am September 08, 2022 10:16am SLIDING SCALEStart: 05-19-2018 End: 00-04-5984Ctfzsox Lispro (Humalog Kwikpen Insulin) 100 unit/mL Insulin Pen Discontinued 0 .ROUTE .COMPLEX May 19, 2018 1:00am September 08, 2022 11:16am SLIDING SCALEinsulin, regular, human 100 unt/ml injectable solution (1 source)InsulinStart: 06-22-2022 End: 44-01-3982vyjcpfk regular (HUMULIN R;NOVOLIN R) injection 10 Units levoFLOXacin 750 mg oral tablet (20 sources)Quinolone AntimicrobialStart: 10-10-2024 End: 32-84-5631rlyg 1 tablet by mouth once dailyLevofloxacin 750 mg tablet Discontinued 750 MG PO Daily 7 7 0 October 09, 2024 11:00pm January 10:47am Local infection of wound Other injury of unspecified body region, initial encounter Local infection of the skin and subcutaneous tissue, unspecifiedStart: 02-13-2023 End: 13-67-6026nocn 1 tablet by mouth once dailyLevofloxacin 750 mg Tablet Discontinued 750 MG PO Daily 6 0 February 13, 2023 12:00am May 04, 2023 11:23amStart: 12-01-2022 End: 55-23-0688emgj 1 tablet by mouth once dailyLevofloxacin 500 mg tablet Discontinued 500 MG PO Daily November 30, 2022 11:00pm February 07, 2023 3:16pmStart: 10-16-2021 End: 07-60-4490ndid 1 tablet by mouth once dailyLevofloxacin 750 mg Tablet Discontinued 750 MG PO Daily October 15, 2021 11:00pm November 18, 2021 10:49am x6 weeks, Called to pharmacy 09/09/2021nystatin 004461 unt/ml oral suspension (2 sources)Polyene AntifungalStart: 12-27-2024 End: 71-04-9351ixra 1 mL by mouth four times dailyNystatin 100,000 unit/mL suspension Discontinued 5 ML PO Four times daily 140 7 0 December 26, 2024 11:00pm January 25, 2025 12:18pm swish and tqufopr30 hr oxybutynin chloride 5 mg extended release oral tablet (20 sources)Cholinergic Muscarinic AntagonistStart: 02-13-2023 End: 77-91-6057qkwg 1 tablet by mouth once dailyOxybutynin Chloride 5 mg Tablet Extended Release 24hr Discontinued 15 MG PO Daily 90 30 0 February 13, 2023 12:00am October 02, 2024 9:53am On Hold: not takingStart: 69-07-9795bijg 15 mg by mouth once dailyOxybutynin Chloride Active 15 MG PO Daily 90 30 February 13, 2023 1:00amStart: 11-09-2022 End: 41-01-0828xyqs 1 tablet by mouth once dailyOxybutynin Chloride 15 mg tablet extended release 24hr Discontinued 15 MG PO Daily February 07, 2023 12:00am February 01, 2025 10:47amStart: 57-39-9236upjnudlubf 15 mg ER Tab Refills(s) 0 Start Date: 11/09/22 Status: OrderedStart: 03-23-2019 End: 66-48-6644xdsq 1 tablet by mouth once dailyOxybutynin Chloride 10 mg Tablet Extended Release 24hr Discontinued 10 MG PO Daily March 23, 2019 12:00am February 07, 2023 7:56ampolyethylene glycol 3350 09365 mg powder for oral solution (1 source)Osmotic LaxativeStart: 81-30-415465 g, Oral, DAILY PRN, Starting on Wed06/22/22 at 2018, Until Discontinued, Constipation First linetherapy for constipationpolyethylene glycol 3350 619637 mg / potassium chloride 2970 mg / sodium bicarbonate 6740 mg / sodium chloride 5860 mg / sodium sulfate 24518 mg powder for oral solution (1 source)Osmotic LaxativeStart: 06-25-2022 End: 89-22-0914etzppbushfie glycol (GoLYTELY) solution 4,000 mLStart: 06-25-2022 End: 16-80-0904rwsswrduufgs glycol (GoLYTELY) solution 4,000 mLrosuvastatin calcium 20 mg oral tablet (19 sources)HMG-CoA Reductase InhibitorStart: 06-07-2016 End: 51-95-6555xssy 1 tablet by mouth once dailyRosuvastatin (Crestor) 20 mg Tablet Discontinued 20 MG PO Daily December 06, 2016 11:00pm March 23, 2019 11:03am Hyperlipidemiasilver sulfADIAZINE 10 mg/ml topical cream (11 sources)Sulfonamide AntibacterialStart: 09-22-2018 End: 55-76-3720Prxtdz Sulfadiazine (Silvadene) 1 % cream Discontinued 1 APPLIC TOPICAL Daily 400 0 September 21, 201811:00pm March 23, 2019 11:03am apply a 1.5 mm thicknesssodium polystyrene sulfonate 250 mg/ml oral suspension (1 source)Start: 06-22-2022 End: 03-22-4726goizqo polystyrene (KAYEXALATE) 15 GM/60ML suspension 45 gsodium zirconium cyclosilicate 61732 mg powder for oral suspension (1 source)Start: 06-23-2022 End: 13-32-6559jpxnaa zirconium cyclosilicate (LOKELMA) oral suspension 10 g sulfamethoxazole 800 mg / trimethoprim 160 mg oral tablet (20 sources)Dihydrofolate Reductase Inhibitor Antibacterial, Sulfonamide AntimicrobialStart: 04-07-2018 End: 22-37-8267vime 1 tablet by mouth once dailySulfamethoxazole-Trimethoprim (Bactrim Ds) 800-160 mg Tablet Discontinued 1 TAB PO Daily April 07, 2018 12:00am November 18, 2021 10:49amStart: 06-22-2017 End: 02-90-1347dxph 1 tablet by mouth twice dailySulfamethoxazole-Trimethoprim (Bactrim Ds) 800-160 mg Tablet Discontinued 1 TAB PO Twice daily June 21, 2017 11:00pm August 24, 2017 9:21amStart: 12-07-2016 End: 44-90-4151Kldvsou Discontinued December 07, 2016 12:00am December 08, 2016 2:50pmStart: 12-07-2016 End: 35-04-7760Mvjpjss Discontinued December 06, 2016 11:00pm December 08, 2016 1:50pmtriamcinolone acetonide 5 mg/ml topical cream (9 sources)CorticosteroidStart: 02-07-2023 End: 48-52-1225Xwtbsxotmybkf Acetonide 0.5 % cream Discontinued 0.5 APPLIC TOPICAL Three times daily February 07, 2023 12:00am May 04, 2023 11:25am Problems Active Problems Problem ClassificationProblemDateDocumented DateEpisodic/ChronicAllergic reactions (20 sources)Urticaria; Translations: [Urticaria, unspecified]Onset: 01-20-2024 37-12-5193BiwrkhztOiyelwg kidney disease (20 sources)Chronic kidney disease; Translations: [Chronic kidney disease, unspecified]Onset: 136353-27-9106MzlvzhqOtdxueg ulcer of skin (20 sources)Non-pressure chronic ulcer of skin of other sites with other specified severity; Translations: [Pressure ulcer of unspecified site, unspecified stage]Onset: 07-19-2013 Resolved: 874698-98-6906PlnhukoNtahsebmgxvb of device; implant or graft (20 sources)Injury of cauda equina ; Translations: [Injury of cauda equina, initial encounter]58-88-6272XyuardjXqcshcfgjczou of surgical procedures or medical care (1 source)Urethral stricture due to and following procedure; Translations: [Postprocedural urethral stricture, male, overlapping sites]Onset: 07-06-2022 05-55-4044GjmoyrttHkfahoxxqj and other anemia (6 sources)Iron deficiency anemia; Translations: [Iron deficiency anemia, unspecified]Onset: 75-99-1840OzlppyeoAqgrgclzpy and other anemia (3 sources)Ybbyag36-63-3667BgraidqkEjscogwdxs and other anemia (9 sources)Microcytic anemia; Translations: [Iron deficiency anemia, unspecified]07-57-5481WblbjztcPzonqbhb mellitus with complications (20 sources)Type 2 diabetes mellitus with hyperglycemia; Translations: [Diabetic foot ulcer]Onset: 79-07-2914CbmlocfNmprdkzg mellitus without complication (20 sources)Diabetes mellitus; Translations: [Type 2 diabetes mellitus without complications]Onset: 204796-14-1845BclprtbOorvglmv of white blood cells (2 sources)Elevated white blood cell count, unspecified; Translations: [Elevated white blood cell count, unspecified]Onset: 62-27-9050QwlgciqEmtmcymlh of lipid metabolism (20 sources)Mixed hyperlipidemia; Translations: [Mixed hyperlipidemia]Onset: 426862-24-7658GdowmykYbpwhbuby hypertension (20 sources)Hypertensive disorder; Translations: [Essential (primary) hypertension]Onset: 257725-61-4657UeryvvzHmzlvjh on above:d/t Vancomycin use affected kidneysGastritis and duodenitis (20 sources)Chronic superficial gastritis; Translations: [Chronic superficial 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]Onset: 410457-34-9999IsjxnkyTjxyossvsnziq symptoms and ill-defined conditions (20 sources)Incontinence without sensory awareness; Translations: [Incontinence without sensory awareness]Onset: 14-12-7397IgfqbrzOnlqbahawyseu symptoms and ill-defined conditions (7 sources)Retention of urine; Translations: [Retention of urine, unspecified] Onset: 65-20-0917MjpmeanrGxayxvyhr arthritis and osteomyelitis (except that caused by tuberculosis or sexually transmitted disease) (20 sources)Osteomyelitis of right foot; Translations: [Osteomyelitis, unspecified]Onset: 12-25-2016 Resolved: 706600-57-0018UqtyzzxDefa disorders (20 sources)Depressive disorder; Translations: [Depression]Onset: 04-06-2023 22-49-8526QzqfgqkZrks wounds of extremities (18 sources)Open wound of lower limb with complication; Translations: [Unspecified open wound, unspecified knee, initial encounter]Onset: 02-25-2011 88-88-2914AebrfaxqJtcne diseases of bladder and urethra (9 sources)Neurogenic bladder; Translations: [Neuromuscular dysfunction of bladder, unspecified]Onset: 41-66-0282DwrnpbwYaoax diseases of bladder and urethra (1 source)Neuromuscular dysfunction of bladder, unspecified; Translations: [Neuromuscular dysfunction of bladder, unspecified]Onset: 26-32-2015RuctcglImpko diseases of bladder and urethra (2 sources)Neurogenic dysfunction of the urinary bladder; Translations: [Neuromuscular dysfunction of bladder,unspecified]Onset: 79-34-7635XbrajdeFrxwk diseases of bladder and urethra (5 sources)Male urethral stricture; Translations: [Unspecified urethral stricture, male, unspecified site]Onset: 93-91-7600GvyoywkwNwvtq diseases of veins and lymphatics (2 sources)Vascular insufficiency; Translations: [Venous insufficiency (chronic) (peripheral)]87-41-3870YlqfbydjRfpam injuries and conditions due to external causes (11 sources)Injury of cauda equina ; Translations: [Injury of cauda equina, subsequent encounter]10-77-2368DkxhuyqoTqtkl injuries and conditions due to external causes (3 sources)Local infection of wound; Translations: [Other injury of unspecified body region, initial encounter]09-23-9260JmsxnxbuNtgzh nervous system disorders (11 sources)Acute postoperative pain; Translations: [Other acute postprocedural pain]90-71-9388MhmupecxSbkpu non-traumatic joint disorders (6 sources)Pain in right hip; Translations: [Pain in joint, pelvic region and thigh]Onset: 17-54-9165KnxyxgbqLyzjt non-traumatic joint disorders (11 sources)Hip pain; Translations: [Pain in right hip]31-51-9299NnskazamMjqgb nutritional; endocrine; and metabolic disorders (11 sources)Obesity; Translations: [Obesity, unspecified]08-83-6914XetspnsMnzgc nutritional; endocrine; and metabolic disorders (5 sources)Morbid obesity; Translations: [Morbid (severe) obesity due to excess calories]Onset: 506554-76-3063BckfuzwPqgpn nutritional; endocrine; and metabolic disorders (15 sources)Severe obesity; Translations: [Class 2 severe obesity due to excess calories with serious comorbidity and body mass index (BMI) of 36.0 to 36.9 in adult ([facility])]Onset: 505667-90-7862BvonyoxDbfwi screening for suspected conditions (not mental disorders or infectious disease) (5 sources)Electrocardiogram abnormal; Translations: [Abnormal electrocardiogram [ECG] [EKG]]Onset: 88-79-4925WkyuqgtlXgcsm skin disorders (20 sources)Vesicular eczema; Translations: [Dyshidrosis [pompholyx]]Onset: 696653-69-6886LpidtshfGymkbotgo (20 sources)Cauda equina syndrome; Translations: [Cauda equina syndrome]Onset: 329482-41-8197BdixrwtLkndzpitat and visceral atherosclerosis (10 sources)Peripheral vascular disease, unspecified; Translations: [Peripheral arterial disease]Onset: 556249-19-7995YbbzzgyUhmzyxaf codes; unclassified (3 sources)Sleep qyqqj76-63-2419PqrtfyaFnyvksfu codes; unclassified (20 sources)Obstructive sleep apnea syndrome; Translations: [Obstructive sleep apnea (adult) (pediatric)]Onset: 078905-73-2169FvlxybcUompdnpp codes; unclassified (11 sources)Pain; Translations: [Pain, unspecified]73-43-1198TvubsoskPxgbbrta codes; unclassified (5 sources)Bilateral lower limb edema; Translations: [Localized edema]08-30-2024 EpisodicResidual codes; unclassified (1 source)Localized edema; Translations: [Edema]75-15-0662GkrxgopjRghx and subcutaneous tissue infections (20 sources)Cellulitis, unspecified; Translations: [Cellulitis]Onset: 02-25-2011 Resolved: 101477-76-1064CjffgagpYydwlwhgadc; intervertebral disc disorders; other back problems (9 sources)Sacral back pain; Translations: [Sacrococcygeal disorders, not elsewhere classified]62-30-1909HjibyfmmYcpdeseptaao (1 source)Patient encounter omyqmn61-84-7785Zrsrmnc tract infections (20 sources)Recurrent urinary tract infection; Translations: [Urinary tract infection, site not specified]Onset: 225363-90-4591Dbwsyppi Past or Other Problems Problem ClassificationProblemDateDocumented DateEpisodic/ChronicAcute and unspecified renal failure (16 sources)Utdab-we-menezdo renal failure; Translations: [Acute kidney failure, unspecified]Onset: 182682-60-4963WatxarmvQtrthadsz infection; unspecified site (15 sources)Infection due to enterococcus; Translations: [Enterococcus as the cause of diseases classified elsewhere]Onset: 830743-62-2866Okgdlgtu Deficiency and other anemia (1 source)Iron deficiency anemia, unspecified; Translations: [Iron deficiency anemia, unspecified]Onset: 25-88-9730OyywpqawKjmet and electrolyte disorders (13 sources)Hyponatremia; Translations: [Hypo-osmolality and hyponatremia]Onset: 960193-92-7375XjaqargxPjxxj aftercare (20 sources)Long-term current use of drug therapy; Translations: [Other skilled nursing (current) drug therapy]Onset: 609925-06-9050DolwcmljPsrej aftercare (5 sources)Patient encounter status; Translations: [Other skilled nursing (current) drug therapy]Onset: 509845-34-3249HlqsilgrFjkhu aftercare (1 source)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; Translations: [assisted (current) use of insulin]Onset: 19-46-7787QisgsmnvVznkd inflammatory condition of skin (20 sources)Pruritus, unspecified; Translations: [Unspecified pruritic disorder] Onset: 11-18-2023 Resolved: 343794-61-8260ZujidmmvDwlpk injuries and conditions due to external causes (1 source)Injury of cauda equina, subsequent encounter; Translations: [Injury of cauda equina, subsequent encounter]Onset: 18-91-4722QoaiuyyoNvrop nervous system disorders (1 source)Other acute postprocedural pain; Translations: [Other acute postprocedural pain]Onset: 45-67-9373OnzkhybbZqyeiynfaa (except in labor) (5 sources)Sepsis due to methicillin resistant Staphylococcus aureus; Translations: [Sepsis due to Methicillinresistant Staphylococcus aureus]Onset: 09-09-2016 Resolved: 521586-28-9977Anjbypls Results Test NameValueInterpretationReference RangeFacilityAmbulatory Visit Summaryon 18-05-6355Jwmvekptmn Visit SummaryAmbulatory Visit Summary GANGA STINSON :1960 Visit Date:01/15/2025 Ambulatory Visit Instructions Your Diagnosis Urethral stricture in male Urinary retention Neurogenic bladder Screening PSA (prostate specific antigen) Your Care Team Attending Physician - ALLEN NAZARIO, Jovanny Christie Primary Care Physician - FIDEL ABBOTT MD This Is Your Medications List ciprofloxacin (Cipro 500 mg Tab) Contact prescribing physician if questions or concerns Misc Prescription (IRON 65MG TAB) amlodipine (amLODIPine 10 mg Tab) atenolol (atenolol 100 mg Tab) atorvastatin (atorvastatin 40 mg Tab) citalopram (citalopram 40 mg Tab) glipiZIDE (glipiZIDE 10 mg Tab) hydrOXYzine (hydrOXYzine hydrochloride 50 mg oral tablet) lisinopril (lisinopril 20 mg Tab) sitagliptin (Januvia 100 mg Tab) Procedures Performed Cystourethroscopy with dilation of urethral stricture (10/08/2022), DVU - Direct vision urethrotomy(2022), Optical urethrotomy (2022), Appendix, Back, Cystoscopy, History of appendectomy, IVC - Insertion of inferior vena caval filter, Urodynamics. Discharge Vitals Temperature (Temporal Artery) 36.1 ???C Heart Rate (Peripheral) 57 Respiratory Rate 16 Blood Pressure 118/55 Height 180 cm Height 71 in What to do next You Need to Schedule the Following Appointments Follow Up with ALLEN NAZARIO, Jovanny Christie, URL When: Comments: sched cysto/UD Where: [address] [place] [address] [place] [address] Medications What How Much When Instructions New ciprofloxacin (Cipro 500 mg Tab) 1 Tablets By Mouth Every day take one tab day before procedureand one tab after procedure Pickup at [id number] Unchanged amlodipine (amLODIPine 10 mg Tab) Contact prescribing physician if questions or concerns Unchanged atenolol (atenolol 100 mg Tab) Contact prescribing physician if questions or concerns Unchanged atorvastatin (atorvastatin 40 mg Tab) 1 Tablets By Mouth Every day Contact prescribing physician if questions or concerns Unchanged citalopram (citalopram 40 mg Tab) Contact prescribing physician if questions or concerns Unchanged glipiZIDE (glipiZIDE 10 mg Tab) Contact prescribing physician if questions or concerns Unchanged hydrOXYzine (hydrOXYzine hydrochloride 50 mg oral tablet) 1 Tablets By Mouth 4 times a day TAKE 1 TABLET BY MOUTH 4 TIMES DAILY NEEDED FOR ITCHING Contact prescribing physician if questions or concerns Unchanged lisinopril (lisinopril 20 mg Tab) Contact prescribing physician if questions or concerns Unchanged Misc Prescription (IRON 65MG TAB) 0 Contact prescribing physician if questions or concerns Unchanged sitagliptin (Januvia 100 mg Tab) 1 Tablets Contact prescribing physician if questions or concerns Pharmacy Information [id number]: [address] [place], [place] [id number] [phone] Allergies omadacycline (Kidney pain) Problems Ongoing - Any problem that you are currently receiving treatment for. Anemia Diabetes Hyperlipidemia Hypertension Neurogenic bladder Paraplegia Screening PSA (prostate specific antigen) Sleep apnea Urethral stricture in male Urinary retention Patient Survey You may receive a survey via text or e-mail asking about your office visit. Please share your experience with us by completing your survey. We appreciate your feedback and thank you for choosing us for your care. Education Materials Urethral Stricture Urethral stricture is when the tube that drains pee (urine) from the bladder out of the body (urethra) becomes too narrow. The urethra can become narrow because of scar tissue, infection, surgery, errol injury. This can make it difficult to pee (urinate). In females, the urethra opens above the vaginal opening. In males, the urethra opens at the tip of the penis, and the urethra is much longer than it is in females. Because of the length of the male urethra, urethral stricture is much more common in males. What are the causes? In males and females, common causes of urethral stricture include: ??? Urinary tract infection (UTI). ??? Sexually transmitted infection (STI). ??? Using a soft tube in the urethra to drain pee from the bladder (urinary catheter). ??? Urinary tract surgery. In males, common causes of urethral stricture include: ??? A severe injury to the pelvis. ??? Prostate surgery. ??? Injury to the penis. In many cases, the cause of urethral stricture is not known. What increases the risk? You are more likely to develop this condition if you: ??? Are male. Males who have had prostate surgery are at risk of developing this condition. ??? Use a urinary catheter. ??? Have had urinary tract surgery. What are the signs or symptoms? The main symptom of this condition is trouble peeing. This may cause decreased pee flow, dribbling,or spraying of pee. Other symptom of this condition may inclu (more content not included)...[facility]/Clinic Noteon [id number] Office/Clinic NoteUrology Office/Clinic Note Chief Complaint Follow up HPI Staff 64 year old male patient here 1 year follow up. Previous dx: neurogenic bladder, urethral stricturein male, urinary retention. S/P cysto/UD 11/08/23, 01/11/23 not taking Oxybutynin 15 mg ER qd CIC 4 x a day. Needs new prescription for caths IPSS: 0 Unable to urinate today, pt does have wounds on feet to prohibit him to stand up himself History of Present Illness Tests reviewed: reviewed op note, PSA I have reviewed the previous health record information and history for this patient from Dr. Villa. I have reviewed and verified the staff HPI to be accurate for this encounter. Review of Systems PHQ Score Initial Depression Screen Score: 0 SCORE ROS - Provider Constitutional: denies weight loss, denies hot flashes. Eyes: denies eye problems. Gastrointestinal: denies nausea, denies vomiting. Cardiovascular: denies chest pain or angina. Integumentary: no dryness Musculoskeletal: denies musculoskeletal symptoms. ENMT: denies otolaryngeal symptoms. Respiratory: no shortness of breath. Heme/Lymph: denies easy bleeding tendency, denies easy bruising tendency. Psychiatric: no confusion, no anxiety. Genitourinary: See HPI. Physical Exam Vitals & Measurements T: 36.1 ???C(Temporal Artery) HR: 57(Peripheral) RR: 16 BP: 118/55 HT: 180 cm HT: 71 in General Appearance: alert, no distress, well nourished, well developed male. Assessment/Plan Prior DLS pt 1. Urethral stricture in male (N35.919: Unspecified urethral stricture, male, unspecified site) S/p Urethrotomy done 07/07/[address] Nagy. S/p Cysto/UD 10/08/22 and 01/11/23. Last Cysto/UD 11/08/23 - Dilated from 20-28 Fr, urethra bled. 16Fr catheter placed then removed 1 wk later. Feels he is due for another dilation. -Will schedule Cysto with UD. The procedure risks, benefits, details, and treatment alternatives have been discussed with the patient. These include bleeding, infection, recurrent scar in over 50%, need for repeat dilation or other procedures, no symptom relief with dilation, among others. Full informed consent has been obtained. Will order Local anesthesia. 2. Urinary retention (R33.9: Retention of urine, unspecified) S/p Urodynamics 2003 and Cysto/Urodynamics 05/30/10. CIC 4x/day as he is paraplegic. No issues with this. -Cont CIC 3. Neurogenic bladder (N31.9: Neuromuscular dysfunction of bladder, unspecified) See #1. 4. Screening PSA (prostate specific antigen) (Z12.5: Encounter for screening for malignant neoplasmof prostate) PSA 08/10/24 - 0.44 -Cont monitoring w/ PCP Follow-up With When Contact Information ALLEN NAZARIO, Jovanny Christie, URL [address] [place] [address] [place] [address] Additional Instructions: sched cysto/UD Patient Education Urethral Stricture I, Dia Serrato, personally scribed for Dr. Villa on 01/15/2025 11:31:20. . Documentation recorded by the scribe, Dia Serrato, accurately reflects the services(s) I performed and decisions made by me. Authenticated by Dr. Villa on 01/15/2025 11:33:28. Problem List/Past Medical History Ongoing Anemia Diabetes Hyperlipidemia Hypertension Neurogenic bladder Paraplegia Screening PSA (prostate specific antigen) Sleep apnea Urethral stricture in male Urinary retention Historical No qualifying data Procedure/Surgical History Cystourethroscopy with dilation of urethral stricture (10/08/2022), DVU - Direct vision urethrotomy(2022), Optical urethrotomy (2022), Appendix, Back, Cystoscopy, History of appendectomy, IVC - Insertion of inferior vena caval filter, Urodynamics. Medications amLODIPine 10 mg Tab atenolol 100 mg Tab atorvastatin 40 mg Tab, 40 mg= 1 tab(s), Oral, Daily citalopram 40 mg Tab glipiZIDE 10 mg Tab hydrOXYzine hydrochloride 50 mg oral tablet, 50 mg= 1 tab(s), Oral, QID IRON 65MG TAB, 0 Januvia 100 mg Tab, 100 mg= 1 tab(s) lisinopril 20 mg Tab Allergies omadacycline (Kidney pain) Social History Tobacco Never (less than 100 in lifetime) Tobacco Use:. Never Smokeless Tobacco Use:., 01/15/2025 Family History Family history is negative Immunizations Vaccine Date Status Comments influenza virus vaccine, inactivated 04/10/2017 Recorded 2022-11-09: VIS DATE: 11/02/2014 influenza virus vaccine, inactivated 01/01/2015 Recorded influenza virus vaccine, inactivated 01/10/2014 RecordedKettering Health HamiltonComment on above:Result Comment: Electronically Signed By: Jovanny VILLA MD\.br\Date and Time Signed: 01/15/25 11:33 EDT\.br\Electronically Co-Signed By: Dia Serrato.br\Date and Time Co-Signed: 01/15/25 11:31 EDT Basophils Auto (Bld) [#/Vol]Ordered By: Jesus Hernandes on 04-62-7998Fjkuwssex (Bld) [#/Vol]0.0 10 3/uL0.0-0.1FUniversity Hospitals Portage Medical CenterBasophils/100 WBC Auto (Bld)Ordered By: Jesus Hernandes on 77-63-1760Icsjptjhr/100 WBC (Bld) 0.2 %0.2-2.0[facility] HospitalEosinophils/100 WBC Auto (Bld) Ordered By: Jesus Hernandes on 89-57-1770Aoebpxluebg/100 WBC (Bld)6.8 %0.9-7.0 [facility] HospitalErythrocyte distribution width Auto (RBC) [Ratio]Ordered By: Jesus Hernandes on 42-99-4514Dlcwxytwiid distribution width (RBC) [Ratio]14.6 %11.0-15.0[facility] HospitalGlomerular filtration rate (GFR) estimation in non- AmericanOrdered By: Jesus Hernandes on 15-49-6629WPS/1.73 sq M.predicted among non-blacks MDRD (S/P/Bld) [Vol rate/Area]28 mL/min/{1.73_m2}Low>=60 mL/min/1.73m 2FUniversity Hospitals Portage Medical CenterHematocrit Auto (Bld) [Volume fraction]Ordered By: Jesus Hernandes on 82-11-4032Mdyjdvshwk (Bld) [Volume fraction]23.8 %Critically low 42.0-54.0[facility] HospitalComment on above:RESULTS CALLED TO Dr. HernandesHemoglobin [Mass/volume] in BloodOrdered By: Jesus Hernandes on 25-27-8089Zmawgllfae (Bld) [Mass/Vol]7.2 g/dLLow14.0-18.0[facility] HospitalLaboratory - Chemistry and Chemistry - challengeOrdered By: Jesus Hernandes on 15-75-3709Vrxaphb [Mass/Vol]8.5 mg/dL8.5-10.1FUniversity Hospitals Portage Medical CenterChloride [Moles/Vol]105 mmol/H92-088WzxmvjkrmCleveland Clinic Union HospitalCO2 [Moles/Vol]22.8 mmol/L21.0-32.0[facility] Creatinine [Mass/Vol]2.37 mg/dLHigh0.70-1.30[facility] GFR/1.73 sq M.predicted MDRD (S/P/Bld) [Vol rate/Area]34 mL/min/{1.73_m2}Low>=60 mL/min/1.73m 2FUniversity Hospitals Portage Medical CenterGlucose [Mass/Vol]194 mg/dLHigh 74-106[facility] HospitalPotassium [Moles/Vol]5.0 mmol/L3.5-5.1 [facility] Hospitalodium [Moles/Vol]138 mmol/G947-469HrencpexuCleveland Clinic Union HospitalUrea nitrogen [Mass/Vol]47.0 mg/dLHigh7.0-18.0[facility] HospitalUrea nitrogen/Creatinine [Mass ratio]19.8 mg/mgCleveland Clinic Union HospitalLaboratory - Hematology and Cell countsOrdered By: Jesus Hernandes on 35-31-1930Futwkysp granulocytes/100 WBC (Bld)0.9 %High0.0-0.5 [facility] HospitalLeukocytes [#/volume] corrected for nucleated erythrocytes in Blood by Automated counOrdered By: Jesus Hernandes on 64-08-3166VRL corrected for nucl RBC Auto (Bld) [#/Vol]13.2 10 3/uLHigh4.0-11.0 [facility] HospitalLymphocytes Auto (Bld) [#/Vol]Ordered By: Jesus Hernandes on 14-22-0779Chwihwyiwfc (Bld) [#/Vol]1.4 10 3/uL1.2-3.8[facility] HospitalLymphocytes/100 WBC Auto (Bld)Ordered By: Jesus Hernandes on 74-46-2093Werskffmvra/100 WBC (Bld)10.8 %Low20.5-60.0[facility] Auto (RBC) [Entitic mass]Ordered By: Jesus Hernandes on 31-30-3693IYF (RBC) [Entitic mass]24.9 pgLow25.9-34.0[facility] HospitalMCHC Auto (RBC) [Mass/Vol]Ordered By: Jesus Hernandes on 47-47-2559YAJG (RBC) [Mass/Vol]30.3 g/dL29.9-35.2FUniversity Hospitals Portage Medical CenterMCV Auto (RBC) [Entitic vol]Ordered By: Jesus Hernandes on 14-22-8042MLK (RBC) [Entitic vol]82.4 fL80.0-94.0[facility] HospitalMonocytes Auto (Bld) [#/Vol]Ordered By: Jesus Hernandes on 17-36-1565Wiydxelpx (Bld) [#/Vol]1.1 10 3/uLHigh0.3-0.8[facility] HospitalMonocytes/100 WBC Auto (Bld)Ordered By: Jesus Hernandes on 25-90-3935Frirrmvxe/100 WBC (Bld)8.1 % 1.7-12.0[facility] HospitalNeutrophils Auto (Bld) [#/Vol]Ordered By: Jesus Hernandes on 41-27-5999Gtupvtodjgc (Bld) [#/Vol]9.6 10 3/uLHigh 1.4-6.5FUniversity Hospitals Portage Medical CenterNeutrophils/100 WBC Auto (Bld)Ordered By: Jesus Hernandes on 01-35-4255Snlubjkbqku/100 WBC (Bld)73.2 %43.0-75.0 [facility] HospitalNo Panel InformationOrdered By: Jesus Hernandes on 29-20-0214Pctvhrwrfod # (Auto)0.9 10 3/uLHigh0.0-0.7FUniversity Hospitals Portage Medical CenterImmature Granulocyte # (Auto)0.12 10 3/uLHigh0.00-0.03 [facility] HospitalPlatelet mean volume Auto (Bld) [Entitic vol] Ordered By: Jesus Hernandes on 79-08-8854Sbeiarst mean volume (Bld) [Entitic vol]8.7 fLLow9.5-13.5FUniversity Hospitals Portage Medical CenterPlatelets Auto (Bld) [#/Vol]Ordered By: Jesus Lopezshasta on 61-30-9973Oelwiccdj (Bld) [#/Vol]383 10 3/aB070-468MednnskkyCleveland Clinic Union HospitalRBC Auto (Bld) [#/Vol]Ordered By: Jesus Hernandes on 53-76-2029KYT (Bld) [#/Vol]2.89 10 6/uLLow4.70-6.10W[facility] Community Hospitalerum or plasma anion gap determinationOrdered By: Jesus Hernandes on 29-87-9657Ukcbl gap [Moles/Vol]15.2 mmol/LFUniversity Hospitals Portage Medical CenterPatient Letter FTon 92-06-4540Yhcjjcp Letter FTPatient Letter [facility] December 07, 2024 GANGA STINSON [address] [place] [address] : 1960 Dear Mr. Ganga Stinson, [facility], Dr. Jovanny Villa office has been trying to reach you concerning scheduling your annual bladder scope (cystoscopy) and urethral dilation at the [facility]. We have left several messages without a response. Please call the office as soon as possible so we can get you scheduled and continue to provide you with quality care. Sincerely, Jovanny Villa M.D., F.A.C.S. [facility] [address] [place], [place] [address] , option #3NoGeorgetown Behavioral HospitalBasophils Auto (Bld) [#/Vol]Ordered By: Nina River on 71-78-5778Oarbavodo (Bld) [#/Vol]0.1 10 3/uL0.0-0.1FUniversity Hospitals Portage Medical CenterBasophils/100 WBC Auto (Bld)Ordered By: Nina Aleta on 95-48-5973Vdxljacrv/100 WBC (Bld)0.5 %0.2-2.0[facility] HospitalEosinophils/100 WBC Auto (Bld)Ordered By: Nina River on 18-32-3478Bydkhikvfef/100 WBC (Bld)10.1 %High0.9-7.0[facility] HospitalErythrocyte distribution width Auto (RBC) [Ratio]Ordered By: Nina River on 48-75-1543Obutjxjdyob distribution width (RBC) [Ratio]13.8 % 11.0-15.0[facility] HospitalGlomerular filtration rate (GFR) estimation in non- AmericanOrdered By: Nina River on 11-28-2024 GFR/1.73 sq M.predicted among non-blacks MDRD (S/P/Bld) [Vol rate/Area]43 mL/min/{1.73_m2}Low>=60 mL/min/1.73m 2FUniversity Hospitals Portage Medical Center Hematocrit Auto (Bld) [Volume fraction]Ordered By: Nina River on 11-28-2024 Hematocrit (Bld) [Volume fraction]25.0 %Low42.0-54.0[facility] HospitalHemoglobin [Mass/volume] in BloodOrdered By: Nina River on 11-28-2024 Hemoglobin (Bld) [Mass/Vol]8.0 g/dLLow14.0-18.0[facility] Iron binding capacity [Mass/volume] in Serum or PlasmaOrdered By: Nina River on 60-86-5057Vsgq binding capacity [Mass/Vol]114.0 ug/sDYjn025.0-450.0[facility] HospitalIron saturation [Mass Fraction] in Serum or Plasma Ordered By: Nina River on 85-19-3701Ajbe saturation [Mass fraction]21.1 % [facility] HospitalLaboratory - Chemistry and Chemistry - challengeOrdered By: Nina River on 93-82-8908Tssrmjr [Mass/Vol]8.3 mg/dLLow 8.5-10.1FUniversity Hospitals Portage Medical CenterChloride [Moles/Vol]105 mmol/L98-107 [facility] HospitalCO2 [Moles/Vol]25.4 mmol/L21.0-32.0[facility] HospitalCreatinine [Mass/Vol]1.64 mg/dLHigh0.70-1.30[facility] HospitalFerritin [Mass/Vol]898.0 ng/zHKjof97.0-388.0[facility] HospitalGFR/1.73 sq M.predicted MDRD (S/P/Bld) [Vol rate/Area]52 mL/min/{1.73_m2}Low>=60 mL/min/1.73m 2FUniversity Hospitals Portage Medical CenterGlucose [Mass/Vol]323 mg/pYBpbd20-668WafjlepfcCleveland Clinic Union HospitalIron [Mass/Vol] 24.0 ug/dLLow65.0-175.0[facility] HospitalPotassium [Moles/Vol]3.6 mmol/L3.5-5.1FCorey Hospitalodium [Moles/Vol]139 mmol/L 136-145[facility] HospitalUrea nitrogen [Mass/Vol]22.0 mg/dLHigh 7.0-18.0[facility] HospitalUrea nitrogen/Creatinine [Mass ratio] 13.4 mg/mgCleveland Clinic Union HospitalLaboratory - Hematology and Cell countsOrdered By: Nina River on 17-12-5265PWI (Bld) [Velocity]125 mm/hHigh <=20[facility] HospitalImmature granulocytes/100 WBC (Bld)0.4 % 0.0-0.5[facility] CenterLeukocytes [#/volume] corrected for nucleated erythrocytes in Blood by Automated counOrdered By: Nina Aleta on 45-59-5090DLR corrected for nucl RBC Auto (Bld) [#/Vol]12.5 10 3/uLHigh4.0-11.0 [facility] HospitalLymphocytes Auto (Bld) [#/Vol]Ordered By: Nina Aleta on 49-47-8768Bjoegchmeit (Bld) [#/Vol]1.5 10 3/uL1.2-3.8[facility] HospitalLymphocytes/100 WBC Auto (Bld)Ordered By: Nina Aleta on 66-46-9404Ktgquwoxjoz/100 WBC (Bld)12.1 %Low20.5-60.0[facility] CampusH Auto (RBC) [Entitic mass]Ordered By: Nina Aleta on 13-84-5710IVE (RBC) [Entitic mass]26.1 pg25.9-34.0[facility] HospitalMCHC Auto (RBC) [Mass/Vol]Ordered By: Nina Aleta on 55-65-6410YGPV (RBC) [Mass/Vol]32.0 g/dL29.9-35.2FUniversity Hospitals Portage Medical CenterMCV Auto (RBC) [Entitic vol]Ordered By: Nina Aleta on 81-95-5483OQE (RBC) [Entitic vol]81.4 fL80.0-94.0[facility] HospitalMonocytes Auto (Bld) [#/Vol]Ordered By: Nina Aleta on 54-47-9943Wshxcbiza (Bld) [#/Vol]1.0 10 3/uLHigh0.3-0.8[facility] HospitalMonocytes/100 WBC Auto (Bld) Ordered By: Nina Aleta on 00-54-9334Bgvpjpvvn/100 WBC (Bld)7.7 %1.7-12.0 [facility] HospitalNeutrophils Auto (Bld) [#/Vol]Ordered By: Nina Aleta on 09-23-7057Asuvqgxplcr (Bld) [#/Vol]8.6 10 3/uLHigh1.4-6.5 [facility] HospitalNeutrophils/100 WBC Auto (Bld)Ordered By: Nina River on 18-48-5699Cwcqboxdrvk/100 WBC (Bld)69.2 %43.0-75.0[facility] HospitalNo Panel InformationOrdered By: Nina River on 05-91-3761F-Reactive Protein, Himxrsivqdeh69.73 mg/dLHigh<=0.50[facility] HospitalEosinophils # (Auto)1.3 10 3/uLHigh0.0-0.7FUniversity Hospitals Portage Medical CenterImmature Granulocyte # (Auto)0.05 10 3/uLHigh0.00-0.03 [facility] HospitalPlatelet mean volume Auto (Bld) [Entitic vol] Ordered By: Nina River on 62-82-5010Kqyskzis mean volume (Bld) [Entitic vol] 9.0 fLLow9.5-13.5FUniversity Hospitals Portage Medical CenterPlatelets Auto (Bld) [#/Vol] Ordered By: Nina Aleta on 21-07-9366Mwlfqedvu (Bld) [#/Vol]331 10 3/uL 150-450[facility] HospitalRBC Auto (Bld) [#/Vol]Ordered By: Nina Aelta on 98-84-2642KYT (Bld) [#/Vol]3.07 10 6/uLLow4.70-6.10W[facility] Community Hospitalerum or plasma anion gap determinationOrdered By: Nina River on 07-90-6237Iioab gap [Moles/Vol]12.2 mmol/LFUniversity Hospitals Portage Medical CenterAerobic Cultureon 30-47-4918Qptqhrx CultureComment Left Hip Tissue Culture ORGANISM: Strep dysgalactiae (O:STRDYS) Comments Organism [...] RESISTANT TO ALL B-LACTAM DRUGS. PERFORMED BY: [place] [address] PATHOLOGIST PROGRAM EVALUATION CONSULTANT LEXA ELLIOTT M.D.[facility] Physician GroupComment on above: Performed By: #### AERC #### [address] StreetBasi Metabolic Panelon 04-18-9104Sriofukbpu Clr Calc Ldoswzhh[address] [place] [address] Physician Alliance HospitalComment on above:Result Comment: PERFORMED BY: [place] [address] PATHOLOGIST PROGRAM EVALUATION CONSULTANT LEXA ELLIOTT M.D.Performed By: #### CBC, BMP #### [place] [address] USAGFR/1.73 sq M.predicted MDRD (S/P/Bld) [Vol rate/Area] 45.056 mL/min/{1.73_m2}NormalThe Unc Health Rex Physician GroupComment on above: Performed By: #### CBC, BMP #### [facility] [address] [place] [address] USABasophils [#/volume] in Blood by Automated countOrdered By: Rafi Cai on 35-36-8308Nihdnwxjm (Bld) [#/Vol]0.1 10*3/uLNormal0.0-0.2 [facility] HospitalComment on above:Result Comment: PERFORMED BY: [facility] [address] [place] [address] PATHOLOGIST PROGRAM EVALUATION CONSULTANT LEXA ELLIOTT M.D.Performed By: #### CBC, BMP #### [facility] [address] [place] [id number] USABasophils/100 leukocytes in Blood by Automated count Ordered By: Rafi Cai on 61-38-3710Jqprvnqvd/100 WBC (Bld)0.6 %Normal. [facility] HospitalComment on above:Performed By: #### CBC, BMP #### [facility] [address] [place] [address] USACalcium [Mass/volume] in Serum or PlasmaOrdered By: Rafi Cai on 37-50-6564Dxnflij [Mass/Vol]8.3 mg/dLLow8.6-10.3FUniversity Hospitals Portage Medical CenterComment on above:Performed By: #### CBC, BMP #### [facility] [address] [place] [id number] USACapillary blood glucose measurement by glucometer (mass/volume)Ordered By: Cathy Brar on 71-59-2319Kdtvzzs [Mass/Vol]74 mg/dL [facility] HospitalComment on above:Random Glucose Reference Range is dependent on time and content of last meal. Glucose of more than 200 mg/dL in a nonstressed, ambulatory subject supports the diagnosis of Diabetes Mellitus.Result Comment: Random Glucose Reference Range is dependent on time and content of last meal. Glucose of more than 200 mg/dL in a nonstressed, ambulatory subject supports the diagnosis of Diabetes Mellitus. PERFORMED BY: [place] [address] PATHOLOGIST PROGRAM EVALUATION CONSULTANT LEXA ELLIOTT M.D.Performed By: #### GLULS #### Point of Care testing ,Carbon dioxide, total [Moles/volume] in Serum or PlasmaOrdered By: Rafi Cai on 52-05-5649XK1 [Moles/Vol]24.7 mmol/IRwuzkq63.0-31.0[facility] HospitalComment on above:Performed By: #### CBC, BMP #### [place] [address] USAChloride [Moles/volume] in Serum or PlasmaOrdered By: Rafi Cai on 35-00-0842Olwvgmks [Moles/Vol]109 mmol/FCbel31-002IgrenhxxxCleveland Clinic Union HospitalComment on above:Performed By: #### CBC, BMP #### [place] [address] USAComplete Blood Count Auto Diffon 51-90-5522Wgym Corpuscular HGB Conc32.2 g/dLLow32.5-35.6The [facility] Physician GroupComment on above:Performed By: #### CBC, BMP #### [place] [address] USANRBC%0.0 /100{WBC}Normal0-0.5The [facility] Comment on above:Performed By: #### CBC, BMP #### [place] [address] USAWhite Blood Count13.7 [CFU]/mLHigh4.1-10.5The [facility] Physician GroupComment on above:Performed By: #### CBC, BMP #### [place] [address] USACreatinine [Mass/volume] in Serum or PlasmaOrdered By: Rafi Cai on 87-31-6628Ilnrdvuimw [Mass/Vol]1.69 mg/dLHigh0.70-1.30 [facility] HospitalComment on above:Performed By: #### CBC, BMP #### [facility] [address] [place] [address] USAECG 12 lead ECGon 78-85-5232CII 12 lead ECGBUCYRUS COMMUNITY [facility] [place] [address] [place] [id number] Electrocardiograph Report Signed Patient: Ganga Stinson MR#: [id number] : 1960 Acct:[id number] Age/Sex: 64 / M ADM Date: 10/02/24 Loc: [place] Room: Type: [facility] Attending Dr: Cathy Brar MD Ordering [...] change was found Confirmed by Jese Whitley ([id number]) on 10/02/2024 4:24:29 PM Referred By: Electronically Signed By: Jese Whitley Transcribed By: MUS Signed By Jese Whitley MD 10/02/[address] [place] [address] Physician GroupEosinophils [#/volume] in Blood by Automated countOrdered By: Rafi Cai on 25-08-2274Ihvqgcozyqk (Bld) [#/Vol]1.2 10*3/uLHigh0.0-0.45[facility] HospitalComment on above: Performed By: #### CBC, BMP #### [facility] [address] [place] [address] USAEosinophils/100 leukocytes in Blood by Automated count Ordered By: Rafi Cai on 21-26-5733Ujwvwrwlqdl/100 WBC (Bld)8.7 %Normal. [facility] HospitalComment on above:Performed By: #### CBC, BMP #### [facility] [address] [place] [address] USAErythrocyte distribution width [Ratio] by Automated count Ordered By: Rafi Cai on 30-81-1196Feprqgfeexi distribution width (RBC) [Ratio]15.3 %High12.0-14.8[facility] HospitalComment on above: Performed By: #### CBC, BMP #### [facility] [address] [place] [address] USAErythrocytes [#/volume] in Blood by Automated countOrdered By: Rafi Cai on 18-31-8427PFF (Bld) [#/Vol]2.89 10*6/uLLow3.90-5.60 [facility] HospitalComment on above:Performed By: #### CBC, BMP #### [facility] [address] [place] [address] USAGLUCOSE POCT GLUCOMETERSon 97-58-2673Uiifysp [Mass/Vol]74 mg/dLNOIA HealthcareComment on above:Random Glucose Reference Range is dependent on time and content of last meal. Glucose of more than 200 mg/dL in a nonstressed, ambulatory subject supports the diagnosis of Diabetes Mellitus. NOMS LmymdgppbzWSMSPUI6Mes4: Cleaned MeterNOMS HealthcareGlucose [Mass/Vol]77 mg/dLNOIA HealthcareComment on above:Random Glucose Reference Range is dependent on time and content of last meal. Glucose of more than 200 mg/dL in a nonstressed, ambulatory subject supports the diagnosis of Diabetes Mellitus. NOMS HealthcareGlucose Poct Glucometerson 29-31-6801Uowhcau0Dki9: Cleaned Meter NormalOrlando Health South Seminole Hospital Physician GroupComment on above:Result Comment: PERFORMED BY: [place] [address] PATHOLOGIST PROGRAM EVALUATION CONSULTANT LEXA ELLIOTT M.D.Performed By: #### GLULS #### Point of Care testing ,Glucose [Mass/Vol]77 mg/dLBaptist Health Wolfson Children's Hospital Physician GroupComment on above: Result Comment: Random Glucose Reference Range is dependent on time and content of last meal. Glucose of more than 200 mg/dL in a nonstressed, ambulatory subject supports the diagnosis of Diabetes Mellitus.Performed By: #### GLULS #### Point of Care testing ,Glucose [Mass/volume] in Serum or PlasmaOrdered By: Rafi Cai on 15-39-2128Iyguatl [Mass/Vol]72 mg/yTRhvvnv89-667NxsdmrinxCleveland Clinic Union HospitalComment on above:ADA recommended reference rangeRandom Glucose Reference Range is dependent on time and content of last meal. Glucose of more than 200 mg/dL in a nonstressed, ambulatory subject supports the diagnosisof Diabetes Mellitus.Result Comment: Random Glucose Reference Range is dependent on time and content of last meal. Glucose of more than 200 mg/dL in a nonstressed, ambulatory subject supports the diagnosis of Diabetes Mellitus. ADA recommended reference rangePerformed By: #### CBC, BMP #### [facility] [address] [place] [id number] USAHematocrit [Volume Fraction] of Blood by Automated count Ordered By: Rafi Cai on 67-56-1568Ofxtvbsdif (Bld) [Volume fraction]23.0 % Low38.8-50.0[facility] HospitalComment on above:Performed By: #### CBC, BMP #### [facility] [address] [place] [address] USAHemoglobin [Mass/volume] in BloodOrdered By: Rafi Cai on 74-77-0804Lqmecckimw (Bld) [Mass/Vol]7.4 g/dLLow13.0-17.0[facility] HospitalComment on above:Performed By: #### CBC, BMP #### [facility] [address] [place], [place] [id number] USALon 10-02-2024L Specimen: [id number] Received: 10/02/24 Status: CINDYCandelaria Regulo Num: [id number] Spec Type: Surgical Subm Dr: Cathy Brar MD Tissues: A Debridement-Skin/Other Than Skin (PRODUCTS OF DEBRIDEMENT) Procedures: ISMA Gross/Micro L3 Age/ Patient Sex Location Account Attending Physician Ganga Stinson/Sam HI [id number] Cathy Brar MD SPEC NUM: [id number] RECD: 10/02/24 STATUS: ROSIO REGULO NUM: [id number] NAYLA: 10/02/24 [facility] DR: Cathy Brar MD ENTERED: 10/02/24 [facility] DR: AMARILIS TYPE: Surgical DEPT: S ENTERED BY: [id number] RECV BY: [id number] ORDERED: Gianna ASHBY/Micro L3 ORDERED: Gianna ASHBY/Micro L3 Pathological Diagnosis Left hip ulcer, debridement, [...] to yellow, dull and uniform cut surfaces. Underground Heavy Equipment Operator sections are submitted in a single cassette. (1, , [id number] A) Microscopic Description Microscopic examination is performed. CPT Codes 70964 Specimen: [id number] Received: 10/02/24 Status: ROSIO Regulo Num: [id number] Spec Type: Surgical Subm Dr: Cathy Brar MD Tissues: A Debridement-Skin/Other Than Skin (PRODUCTS OF DEBRIDEMENT) Procedures: Gianna ASHBY/Margo L3 Patient: Ganga Stinson [id number] (Continued) Signed (signature on file) Zak Brasher MD 10/04/24 0918Normal The [facility] Physician GroupLeukocytes [#/volume] corrected for nucleated erythrocytes in Blood by Automated counOrdered By: Rafi Cai on 10-02-2024 WBC corrected for nucl RBC Auto (Bld) [#/Vol]13.7 10*3/uLHigh4.1-10.5FUniversity Hospitals Portage Medical CenterLeukocytes [#/volume] in Blood by Automated countOrdered By: Rafi Cai on 90-67-1068EKU (Bld) [#/Vol]13.7 10*3/uLHigh4.1-10.5 [facility] HospitalComment on above:Performed By: #### CBC, BMP #### [facility] [address] [place] [address] USALymphocytes [#/volume] in Blood by Automated countOrdered By: Rafi Cai on 95-51-7716Autwbfdyuci (Bld) [#/Vol]1.5 10*3/uLNormal 1.00-4.8[facility] HospitalComment on above:Performed By: #### CBC, BMP #### [facility] [address] [place], [place] [id number] USALymphocytes/100 leukocytes in Blood by Automated count Ordered By: Rafi Cai on 73-71-2396Kdkfyyopoot/100 WBC (Bld)11.2 %Normal. [facility] HospitalComment on above:Performed By: #### CBC, BMP #### [facility] [address] [place] [id number] USAH [Entitic mass] by Automated countOrdered By: Rafi Cai on 69-17-9542FAJ (RBC) [Entitic mass]25.6 pgLow27.5-35.2FUniversity Hospitals Portage Medical CenterComment on above:Performed By: #### CBC, BMP #### [facility] [address] [place] [address] USAMCHC Auto (RBC) [Mass/Vol]Ordered By: Rafi Cai on 70-15-5978PHZC (RBC) [Mass/Vol]32.2 g/dLLow32.5-35.6FUniversity Hospitals Portage Medical CenterMCV [Entitic volume] by Automated countOrdered By: Rafi Cai on 95-14-5098DGN (RBC) [Entitic vol]79.5 fLLow83.5-101C[facility] HospitalComment on above:Performed By: #### CBC, BMP #### [facility] [address] [place] [address] USAMonocytes [#/volume] in Blood by Automated countOrdered By: Rafi Cai on 27-03-4858Myzquprcn (Bld) [#/Vol]1.1 10*3/uLHigh0.0-0.8 [facility] HospitalComment on above:Performed By: #### CBC, BMP #### [facility] [address] [place] [address] USAMonocytes/100 leukocytes in Blood by Automated count Ordered By: Rafi Cai on 72-55-6005Zaxsbmzms/100 WBC (Bld)8.3 %Normal. [facility] HospitalComment on above:Performed By: #### CBC, BMP #### [place] [id number] USANeutrophils [#/volume] in Blood by Automated countOrdered By: Rafi Cai on 71-92-2940Qbcfqzipoxr (Bld) [#/Vol]9.8 10*3/uLHigh1.8-7.7 [facility] HospitalComment on above:Performed By: #### CBC, BMP #### [facility] [address] [place] [address] USANeutrophils/100 leukocytes in Blood by Automated count Ordered By: Rafi Cai on 26-42-9994Dkmcpxkixxh/100 WBC (Bld)71.2 %Normal. [facility] Union HospitalComment on above:Performed By: #### CBC, BMP #### [address] [address] USANo Panel InformationOrdered By: Rafi Cai on 03-55-7296Fiuikidzl GFR (CKD-EPI)45.056 mL/MinCleveland Clinic Union Hospital [facility] Creatinine Clearance (Chem54.42[facility] Union HospitalNo Panel InformationOrdered By: Cathy Brar on 99-06-0736Vyklamt Glucose Comment Glu2: cleaned [facility] HospitalNucleated erythrocytes [Presence] in Blood by Automated countOrdered By: Rafi Cai on 10-02-2024 Nucleated RBC Auto Ql (Bld)0.0 /100{WBC}0-0.5FUniversity Hospitals Portage Medical Center Platelet mean volume [Entitic volume] in Blood by Automated countOrdered By: Rafi Cai on 34-69-4339Nnynnnoc mean volume (Bld) [Entitic vol]6.2 fLLow 6.6-10.1FUniversity Hospitals Portage Medical CenterComment on above:Performed By: #### CBC, BMP #### [facility] [address] [place] [address] USAPlatelets [#/volume] in Blood by Automated countOrdered By: Rafi Cai on 97-60-8620Ipbfkxytj (Bld) [#/Vol]339 10*3/kOPjjylq319-972 [facility] HospitalComment on above:Performed By: #### CBC, BMP #### [facility] [address] [place] [address] USAPotassium [Moles/volume] in Serum or PlasmaOrdered By: Rafi Cai on 71-47-7569Iacfjdlof [Moles/Vol]3.7 mmol/LNormal3.5-5.1 [facility] HospitalComment on above:Performed By: #### CBC, BMP #### [facility] [address] [place] [address] USASerum or plasma anion gap determinationOrdered By: Rafi Cai on 85-68-9249Hdjse gap [Moles/Vol]8.0 mmol/LNormal6.0-15.0C[facility] Union HospitalComment on above:Performed By: #### CBC, BMP #### [facility] [address] [place] [address] USASodium [Moles/volume] in Serum or PlasmaOrdered By: Rafi Cai on 56-99-5148Jibylk [Moles/Vol]138 mmol/LCiizjf947-040EpgsurgfsCleveland Clinic Union HospitalComment on above:Performed By: #### CBC, BMP #### [facility] [address] [place] [id number] USAUrea nitrogen [Mass/volume] in Serum or PlasmaOrdered By: Rafi Cai on 45-87-1213Ihkk nitrogen [Mass/Vol]25 mg/dLNormal7-25C[facility] HospitalComment on above:Performed By: #### CBC, BMP #### [facility] [address] [place] [address] USAALL CBC WITH AUTO DIFFon 01-15-0521YXVZDERAF ABSOLUTE AUTO 0NOIA HealthcareBasophils/100 WBC (Bld)0.3 %0.2 - 2.0 %[facility] Eosinophils/100 WBC (Bld)9.5 %High0.9 - 7.0 %[facility] SpringsErythrocyte distribution width (RBC) [Ratio]14.3 %11.0 - 15.0 %[facility] SpringsHematocrit (Bld) [Volume fraction]23.2 %Critically low42.0 - 54.0 %[facility] Blue SpringsComment on above:RESULTS CALLED TO CHEYENNE HUDSON RNHemoglobin (Bld) [Mass/Vol]7.4 g/dLLow 14.0 - 18.0 g/dLSaint Mary's Hospital of Blue SpringsIMMATURE GRANULOCYTES ABS AUTO0.07HighNOSaint John's HospitalImmature granulocytes/100 WBC (Bld)0.5 %0.0 - 0.5 %[facility] Interpretation and review of laboratory resultsAbnormalNOSaint John's Hospital LYMPHOCYTES ABSOLUTE AUTO1.8NOMS [facility] HospitalLymphocytes/100 WBC (Bld)13.3 %Low 20.5 - 60.0 %[facility] Cancer InstituteH (RBC) [Entitic mass]26.6 pg25.9 - 34.0 pgNOSaint John's HospitalMCHC (RBC) [Mass/Vol]31.9 g/dL29.9 - 35.2 g/dLSaint Mary's Hospital of Blue SpringsMCV (RBC) [Entitic vol]83.5 fL80.0 - 94.0 fLNOSaint John's HospitalMONOCYTES ABSOLUTE AUTO1.1High NOMS HealthcareMonocytes/100 WBC (Bld)7.8 %1.7 - 12.0 %[facility] Healthcare NEUTROPHILS ABSOLUTE AUTO9.3HighNOIA HealthcareNeutrophils/100 WBC (Bld)68.6 % 43.0 - 75.0 %[facility] HealthcarePlatelet mean volume (Bld) [Entitic vol]8.8 fLLow9.5 - 13.5 fLSaint Mary's Hospital of Blue SpringsTBH EO #1.3HighNOSaint John's HospitalTB EGW950WOAWMercy Hospital Washington RBC2.78LowNOCox North WBC13.5HighSaint Mary's Hospital of Blue SpringsCLINISYNCNOMS HealthcareALL CBC WITH AUTO DIFFon 93-82-8973HJDPQXQZO ABSOLUTE AUTO0.1NOMS HealthcareBasophils/100 WBC (Bld)0.4 %0.2 - 2.0 %NOM HealthcareEosinophils/100 WBC (Bld)9 %High0.9 - 7.0 %[facility] Blue SpringsErythrocyte distribution width (RBC) [Ratio]14.5 %11.0 - 15.0 %[facility] SpringsHematocrit (Bld) [Volume fraction]23.8 %Critically low42.0 - 54.0 %[facility] HealthcareComment on above:RESULTS CALLED TO ANGELICA RUBALCAVA RN at 1219Hemoglobin (Bld) [Mass/Vol]7.4 g/dLLow14.0 - 18.0 g/dLSaint Mary's Hospital of Blue SpringsIMMATURE GRANULOCYTES ABS AUTO0.08HighNOSaint John's HospitalImmature granulocytes/100 WBC (Bld)0.6 %High0.0 - 0.5 %[facility] SpringsInterpretation and review of laboratory resultsAbnormalSaint Mary's Hospital of Blue SpringsLYMPHOCYTES ABSOLUTE AUTO1.6 NOMCox MonettLymphocytes/100 WBC (Bld)12.9 %Low20.5 - 60.0 %[facility] Cancer InstituteH (RBC) [Entitic mass]26.3 pg25.9 - 34.0 pgNODoctors Hospital of SpringfieldHC (RBC) [Mass/Vol] 31.1 g/dL29.9 - 35.2 g/dLFreeman Cancer InstituteV (RBC) [Entitic vol]84.7 fL80.0 - 94.0 fLSaint Mary's Hospital of Blue SpringsMONOCYTES ABSOLUTE AUTO0.9HighNOMS HealthcareMonocytes/100 WBC (Bld)7.2 %1.7 - 12.0 %NOMS HealthcareNEUTROPHILS ABSOLUTE AUTO8.9HighNOMS HealthcareNeutrophils/100 WBC (Bld)69.9 %43.0 - 75.0 %NOMS HealthcarePlatelet mean volume (Bld) [Entitic vol]8.7 fLLow9.5 - 13.5 fLNOMS HealthcareTBH EO #1.2 HighNOMS HealthcareTBH [id number] HealthcareTBH RBC2.81LowNOMS HealthcareTBH WBC 12.7HighNOMS HealthcareCLINISYNCNOMS HealthcareUS ankle/arm indiceson 09-05-2024 US ankle/arm indicesMercy Health St. [facility] [address] [place] [address] Ultrasound Report Signed Patient: Ganga Stinson MR#: [id number] : 1960 Acct:[id number] Age/Sex: 64 / M ADM Date: 08/30/24 Loc: [facility] Room: Type: [facility] Attending Dr: Jesusita Navarro MD Ordering [...] Navarro MD,FACS,FSVS 09/05/2024 12:35 PM Dictation Location: [place] [address] Tech: Livia Hawk Transcribed By: MARYANN 09/05/24 1235 Dictated By: Jesusita Navarro MD 09/05/24 1234 Signed By: 09/05/24 1235[facility] Physician GroupALL CBC WITH AUTO DIFFon 44-56-8004FDDQPDZLL ABSOLUTE AUTO0.1NOMS HealthcareBasophils/100 WBC (Bld)0.4 % 0.2 - 2.0 %[facility] SpringsEosinophils/100 WBC (Bld)5 %0.9 - 7.0 %[facility] Erythrocyte distribution width (RBC) [Ratio]14.3 %11.0 - 15.0 %[facility] Hematocrit (Bld) [Volume fraction]23.4 %Critically low42.0 - 54.0 %[facility] SpringsComment on above:RESULTS CALLED TO ANGELICA RUBALCAVA, RNHemoglobin (Bld) [Mass/Vol]7.3 g/dLLow14.0 - 18.0 g/dLSaint Mary's Hospital of Blue SpringsIMMATURE GRANULOCYTES ABS AUTO0.06HighNOSaint John's HospitalImmature granulocytes/100 WBC (Bld)0.4 %0.0 - 0.5 % [facility] SpringsInterpretation and review of laboratory resultsAbnormalSaint Mary's Hospital of Blue SpringsLYMPHOCYTES ABSOLUTE AUTO1.6NOMS [facility] HospitalLymphocytes/100 WBC (Bld) 11.5 %Low20.5 - 60.0 %[facility] InstituteH (RBC) [Entitic mass]26 pg25.9 - 34.0 pg [facility] SpringsMCHC (RBC) [Mass/Vol]31.2 g/dL29.9 - 35.2 g/dLSaint Mary's Hospital of Blue SpringsMCV (RBC) [Entitic vol]83.3 fL80.0 - 94.0 fLSaint Mary's Hospital of Blue SpringsMONOCYTES ABSOLUTE AUTO 1.1HighNOSaint John's HospitalMonocytes/100 WBC (Bld)8.2 %1.7 - 12.0 %[facility] NEUTROPHILS ABSOLUTE AUTO10.3HighSaint Mary's Hospital of Blue SpringsNeutrophils/100 WBC (Bld)74.5 % 43.0 - 75.0 %[facility] SpringsPlatelet mean volume (Bld) [Entitic vol]8.9 fLLow9.5 - 13.5 fLSaint Mary's Hospital of Blue SpringsTB EO #0.7NOSaint John's HospitalTB COT259SGXNSaint John's HospitalTB RBC2.81LowBates County Memorial Hospital WBC13.8HighSaint Mary's Hospital of Blue SpringsCLINISYNCNPhelps Health ALL CBC WITH AUTO DIFFon 37-98-8552NPTHSNCSA ABSOLUTE AUTO0.1NOMS [facility] Basophils/100 WBC (Bld)0.4 %0.2 - 2.0 %NOMS [facility] HospitalEosinophils/100 WBC (Bld) 5.1 %0.9 - 7.0 %[facility] SpringsErythrocyte distribution width (RBC) [Ratio]15.3 %High11.0 - 15.0 %[facility] SpringsHematocrit (Bld) [Volume fraction]22.9 % Critically low42.0 - 54.0 %[facility] HealthcareComment on above:RESULTS CALLED TO KRZYSZTOF FREED RNHemoglobin (Bld) [Mass/Vol]6.9 g/dLCritically low14.0 - 18.0 g/dLSaint Mary's Hospital of Blue SpringsComment on above:RESULTS CALLED TO KRZYSZTOF FREED RNIMMATURE GRANULOCYTES ABS AUTO0.05HighSaint Mary's Hospital of Blue SpringsImmature granulocytes/100 WBC (Bld) 0.4 %0.0 - 0.5 %[facility] SpringsInterpretation and review of laboratory results AbnormalNOSaint John's HospitalLYMPHOCYTES ABSOLUTE AUTO1.3NOSaint John's Hospital Lymphocytes/100 WBC (Bld)10.2 %Low20.5 - 60.0 %[facility] Cancer InstituteH (RBC) [Entitic mass]24.7 pgLow25.9 - 34.0 pgFreeman Cancer InstituteHC (RBC) [Mass/Vol]30.1 g/dL29.9 - 35.2 g/dLFreeman Cancer InstituteV (RBC) [Entitic vol]82.1 fL80.0 - 94.0 fLSaint Mary's Hospital of Blue SpringsMONOCYTES ABSOLUTE AUTO1.1HighSaint Mary's Hospital of Blue SpringsMonocytes/100 WBC (Bld) 8.1 %1.7 - 12.0 %[facility] SpringsNEUTROPHILS ABSOLUTE AUTO9.9HighSaint Mary's Hospital of [facility] Springs Neutrophils/100 WBC (Bld)75.8 %High43.0 - 75.0 %[facility] SpringsPlatelet mean volume (Bld) [Entitic vol]8.9 fLLow9.5 - 13.5 fLSaint Mary's Hospital of Blue SpringsTB EO #0.7NOMS [facility] HospitalTB CXZ238DZUZCox North RBC2.79LowNOCox North WBC13.1High [facility] SpringsCLINISYNCNPhelps HealthALL CBC WITH AUTO DIFFon 03-10-2024 BASOPHILS ABSOLUTE AUTO0.1NOMS HealthcareBasophils/100 WBC (Bld)0.6 %0.2 - 2.0 % [facility] SpringsEosinophils/100 WBC (Bld)8.8 %High0.9 - 7.0 %[facility] Erythrocyte distribution width (RBC) [Ratio]14 %11.0 - 15.0 %[facility] Hematocrit (Bld) [Volume fraction]26.9 %Low42.0 - 54.0 %[facility] Hemoglobin (Bld) [Mass/Vol]8.1 g/dLLow14.0 - 18.0 g/dLSaint Mary's Hospital of Blue SpringsIMMATURE GRANULOCYTES ABS AUTO0.12HighNOSaint John's HospitalImmature granulocytes/100 WBC (Bld) 0.9 %High0.0 - 0.5 %[facility] SpringsInterpretation and review of laboratory resultsAbnormalSaint Mary's Hospital of Blue SpringsLYMPHOCYTES ABSOLUTE AUTO1.6NOMS [facility] Lymphocytes/100 WBC (Bld)12.2 %Low20.5 - 60.0 %[facility] InstituteH (RBC) [Entitic mass]24.9 pgLow25.9 - 34.0 pgSaint Mary's Hospital of Blue SpringsMCHC (RBC) [Mass/Vol]30.1 g/dL29.9 - 35.2 g/dLSaint Mary's Hospital of Blue SpringsMCV (RBC) [Entitic vol]82.8 fL80.0 - 94.0 fLSaint Mary's Hospital of Blue SpringsMONOCYTES ABSOLUTE STPN9YjlqUZXY HealthcareMonocytes/100 WBC (Bld)7.3 %1.7 - 12.0 %[facility] SpringsNEUTROPHILS ABSOLUTE AUTO9.3HighSaint Mary's Hospital of [facility] Springs Neutrophils/100 WBC (Bld)70.2 %43.0 - 75.0 %[facility] SpringsPlatelet mean volume (Bld) [Entitic vol]8.9 fLLow9.5 - 13.5 fLSaint Mary's Hospital of Blue SpringsTB EO #1.2HighNOSaint John's HospitalTB JUH315JJVR [facility] HospitalTB RBC3.25LowNOCox North WBC13.2High [facility] Blue SpringsCLINISYNCNOMS HealthcareECG 12-LEADon 04-86-6248[address] [address] Electrocardiograph Report Signed Patient: GANGA STINSON MR#: [id number] : 1960 Acct:[id number] Age/Sex: 63 / M ADM Date: 03/10/24 Loc: PST Attending Dr: Jesus Hernandes D.P.M. Ordering Physician: Jesus Hernandes D.P.M. 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 Signed By: 03/10/24 1724 DD/ 1037 TD/TT: Management Lead:TBHRadiology, Radiologist, MD - 03/10/2024 [place] [address] Electrocardiograph Report Signed Patient: GANGA STINSON MR#: [id number] : 1960 Acct:[id number] Age/Sex: 63 / M ADM Date: 03/10/24 Loc: PST Attending Dr: Jesus Hernandes D.P.M. Ordering Physician: Jesus Hernandes D.P.M. 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 Signed By: 03/10/24 1724 DD/ 1037 TD/TT: Management Lead: DAISY HealthcareRadiology Study observation (narrative)[facility] HealthcareECG 12-LEAD Ordered By: Radiologist Radiology on 18-07-7146FJIV Healthcare Work Phone: SEGMENTAL BLOOD PRESSUREon 65-52-5297LgpAs[place] [address] Vein Report Signed Patient: GANGA STINSON MR#: [id number] : 1960 Acct:[id number] Age/Sex: 63 / M ADM Date: 03/06/24 Loc: VC Attending Dr: Jesus Hernandes D.P.M. Ordering Physician: Jesus Hernandes D.P.M. Date of Service: 03/06/24 Procedure(s): VC SEGMENTAL PRESSURES Accession Number(s): [id number] cc: Jesus Hernandes D.P.M.; Fidel Abbott M.D. [place] [id number] Patient Name: GANGA STINSON MRN: [id number] date: 1960 Sex: M Assigned Patient Location: Current Patient Location: Accession/Order Number: [id number] Exam Date: 03/06/2024 11:00 Report Date: 03/06/2024 14:13 At the request of: JESUS HERNANDES Procedure: VC SEGMENTAL PRESSURES EXAM: VC SEGMENTAL [...] Dictated By: Rafaela Smith M.D. Signed By: 03/06/241415 DD/ 12 TD/TT: Management Lead:ISAadiologlowell, Radiologist, - 03/06/2024 [place] [address] Vein Report Signed Patient: GANGA STINSON MR#: [id number] : 1960 Acct:[id number] Age/Sex: 63 / M ADM Date: 03/06/24 Loc: VC Attending Dr: Jesus Hernandes D.P.M. Ordering Physician: Jesus Hernandes D.P.M. Date of Service: 03/06/24 Procedure(s): VC SEGMENTAL PRESSURES Accession Number(s): [id number] cc: Jesus Hernandes D.P.M.; Fidel Abbott M.D. The [place] [address] Patient Name: GANGA STINSON MRN: [id number] date: 1960 Sex: M Assigned Patient Location: Current Patient Location: Accession/Order Number: [id number] Exam Date: 03/06/2024 11:00 Report Date: 03/06/2024 14:13 At the request of: JESUS HERNANDES Procedure: VC SEGMENTAL PRESSURES EXAM: VC SEGMENTAL [...] By: Rafaela Smith M.D. Signed By: 03/06/24 141 DD/ 12 TD/TT: Management Lead: DAISY HealthcareRadiology Study observation (narrative)DAISY [facility] HospitalSEMCCULLOUGH-[facility] BLOOD PRESSUREOrdered By: Radiologist Radiology on 39-72-4925BONRSaint Mary's Hospital of [facility] Springs Work Phone: aLL SED RATEon 73-53-2156Phmiyupgiaxzfk and review of laboratory resultsAbnormalSaint Mary's Hospital of Blue SpringsTBH SED SNVO72UolgIPXPLKSM Healthcare CLINISYNCSaint Mary's Hospital of Blue SpringsBasic Metabolic Panelon 58-13-0608Miuny gap [Moles/Vol] 9.9 mmol/LNormal6.0-15.0The [facility] Physician GroupComment on above:Performed By: #### CBC, BMP #### [place] [address] USACalcium [Mass/Vol]7.6 mg/dLLow8.6-10.3The [facility] Physician GroupComment on above:Performed By: #### CBC, BMP #### [facility] [address] [place] [address] USAChloride [Moles/Vol]106 mmol/VWlgswe73-113Oiy [facility] Physician GroupComment on above:Performed By: #### CBC, BMP #### [facility] [address] [place] [id number] USACO2 [Moles/Vol]26.1 mmol/AModcqe87.0-31.0The [facility] Physician GroupComment on above:Performed By: #### CBC, BMP #### [facility] [address] [place] [id number] USACreatinine [Mass/Vol]1.59 mg/dLHigh0.70-1.30The [facility] Physician GroupComment on above:Performed By: #### CBC, BMP #### [facility] [address] [place] [address] USAGFR/1.73 sq M.predicted MDRD (S/P/Bld) [Vol rate/Area] 48.779 mL/min/{1.73_m2}NormalThe [facility] Physician GroupComment on above: Performed By: #### CBC, BMP #### [facility] [address] [place] [address] USAGlucose [Mass/Vol]128 mg/zKNxhp49-357Vip [facility] Physician GroupComment on above:Result Comment: Random Glucose Reference Range is dependent on time and content of last meal. Glucose of more than 200 mg/dL in a nonstressed, ambulatory subject supports the diagnosis of Diabetes Mellitus. ADA recommended reference rangePerformed By: #### CBC, BMP #### [facility] [address] [place] [address] USAPotassium [Moles/Vol]4.0 mmol/LNormal3.5-5.1The [facility] Physician GroupComment on above:Performed By: #### CBC, BMP #### [facility] [address] [place] [address] USASodium [Moles/Vol]138 mmol/DEhmmsp860-659Uog [facility] Physician GroupComment on above:Performed By: #### CBC, BMP #### [facility] [address] [place] [address] USAUrea nitrogen [Mass/Vol]24 mg/dLNormal7-25The [facility] Physician GroupComment on above:Performed By: #### CBC, BMP #### [facility] [address] [place] [address] USABasophils Auto (Bld) [#/Vol]Ordered By: Nina River on 83-28-4453Pzlksiboa (Bld) [#/Vol]Automated basophil count0.0-0.2FUniversity Hospitals Portage Medical CenterBasophils/100 WBC Auto (Bld)Ordered By: Nina Aleta on 17-14-5738Hoonlgfnm/100 WBC (Bld)Automated basophil %.[facility] HospitalC reactive protein [Mass/volume] in Serum or PlasmaOrdered By: Nina River on 33-30-2797RVW [Mass/Vol]C reactive protein [Mass/volume] in Serum or PlasmaHigh0.0-0.5FUniversity Hospitals Portage Medical CenterC-Reactive Proteinon 80-35-0115X-Reactive Lbvxstv94.7 mg/dLHigh0.0-0.5The [facility] Comment on above:Performed By: #### CBC, BMP #### [facility] [address] [place] [address] USACalcium [Mass/volume] in Serum or PlasmaOrdered By: Nina River on 25-66-5171Ihxuzbv [Mass/Vol]Calcium [Mass/volume] in Serum or PlasmaLow8.6-10.3FUniversity Hospitals Portage Medical CenterCarbon dioxide, total [Moles/volume] in Serum or PlasmaOrdered By: Nina River on 80-29-7179DU7 [Moles/Vol]Carbon dioxide, total [Moles/volume] in Serum or Tskiec14.0-31.0 [facility] HospitalChloride [Moles/volume] in Serum or Plasma Ordered By: Nina River on 58-55-0510Ddscdytw [Moles/Vol]Chloride [Moles/volume] in Serum or Agjvfp26-752CveexekcpCleveland Clinic Union HospitalComplete Blood Count Auto Diffon 65-48-4518Nyumvppzv (Bld) [#/Vol]0.0 10*3/uLNormal 0.0-0.2The [facility] Physician GroupComment on above:Performed By: #### CBC, BMP, FE PRO, B12, ESR, CRP #### [facility] [address] [place] [address] USABasophils/100 WBC (Bld)0.4 %Normal.The [facility] Physician GroupComment on above:Performed By: #### CBC, BMP, FE PRO, B12, ESR, CRP #### [facility] [address] [place] [address] USAEosinophils (Bld) [#/Vol]0.2 10*3/uLNormal0.0-0.45The [facility] Physician GroupComment on above:Performed By: #### CBC, BMP, FE PRO, B12, ESR, CRP #### [facility] [address] [place] [address] USAEosinophils/100 WBC (Bld)2.4 %Normal.The [facility] Physician GroupComment on above:Performed By: #### CBC, BMP, FE PRO, B12, ESR, CRP #### [place] [address] USAErythrocyte distribution width (RBC) [Ratio]15.2 %High 12.0-14.8The [facility] Physician GroupComment on above:Performed By: #### CBC, BMP, FE PRO, B12, ESR, CRP #### [place] [address] USAHematocrit (Bld) [Volume fraction]23.1 %Low38.8-50.0The [facility] Physician GroupComment on above:Performed By: #### CBC, BMP, FE PRO, B12, ESR, CRP #### [place] [address] USAHemoglobin (Bld) [Mass/Vol]7.8 g/dLLow13.0-17.0The [facility] Physician GroupComment on above:Performed By: #### CBC, BMP, FE PRO, B12, ESR, CRP #### [place] [address] USALymphocytes (Bld) [#/Vol]0.7 10*3/uLLow1.00-4.8The [facility] Physician GroupComment on above:Performed By: #### CBC, BMP, FE PRO, B12, ESR, CRP #### [place] [address] USALymphocytes/100 WBC (Bld)7.0 %Normal.The [facility] Physician GroupComment on above:Performed By: #### CBC, BMP, FE PRO, B12, ESR, CRP #### [place] [address] USAMCH (RBC) [Entitic mass]26.8 pgLow27.5-35.2The [facility] Physician GroupComment on above:Performed By: #### CBC, BMP, FE PRO, B12, ESR, CRP #### [place] [address] USAMCV (RBC) [Entitic vol]79.5 fLLow83.5-101The [facility] Physician GroupComment on above:Performed By: #### CBC, BMP, FE PRO, B12, ESR, CRP #### [place] [address] USAMean Corpuscular HGB Conc33.7 g/aFQrcunh63.5-35.6The [facility] Physician GroupComment on above:Performed By: #### CBC, BMP, FE PRO, B12, ESR, CRP #### [place] [address] USAMonocytes (Bld) [#/Vol]0.5 10*3/uLNormal0.0-0.8The [facility] Physician GroupComment on above:Performed By: #### CBC, BMP, FE PRO, B12, ESR, CRP #### [place] [address] USAMonocytes/100 WBC (Bld)4.8 %Normal.The [facility] Physician GroupComment on above:Performed By: #### CBC, BMP, FE PRO, B12, ESR, CRP #### [place] [address] USANeutrophils (Bld) [#/Vol]9.0 10*3/uLHigh1.8-7.7The [facility] Physician GroupComment on above:Performed By: #### CBC, BMP, FE PRO, B12, ESR, CRP #### [place] [address] USANeutrophils/100 WBC (Bld)85.4 %Normal.The [facility] Physician GroupComment on above:Performed By: #### CBC, BMP, FE PRO, B12, ESR, CRP #### [place] [address] USANRBC%0.0 /100{WBC}Normal0-0.5The [facility] Comment on above:Performed By: #### CBC, BMP, FE PRO, B12, ESR, CRP #### [place] [address] USAPlatelet mean volume (Bld) [Entitic vol]6.7 fLNormal 6.6-10.1The [facility] Physician GroupComment on above:Performed By: #### CBC, BMP, FE PRO, B12, ESR, CRP #### [facility] [address] [place] [address] USAPlatelets (Bld) [#/Vol]220 10*3/gYRwfylu261-324Wtb [facility] Physician GroupComment on above:Performed By: #### CBC, BMP, FE PRO, B12, ESR, CRP #### [facility] [address] [place] [address] USARBC (Bld) [#/Vol]2.91 10*6/uLLow3.90-5.60The [facility] Physician GroupComment on above:Performed By: #### CBC, BMP, FE PRO, B12, ESR, CRP #### [facility] [address] [place] [address] USAWBC (Bld) [#/Vol]10.5 10*3/uLNormal4.1-10.5The [facility] Physician GroupComment on above:Performed By: #### CBC, BMP, FE PRO, B12, ESR, CRP #### [place] [address] USACreatinine [Mass/volume] in Serum or PlasmaOrdered By: Nina River on 47-95-0438Fglczdxexi [Mass/Vol]Creatinine [Mass/volume] in Serum or PlasmaHigh0.70-1.30[facility] HospitalEosinophils Auto (Bld) [#/Vol]Ordered By: Nina River on 75-16-6891Lyscrbrikfm (Bld) [#/Vol] Automated eosinophil count0.0-0.45[facility] Eosinophils/100 WBC Auto (Bld)Ordered By: Nina River on 02-08-2024 Eosinophils/100 WBC (Bld)Automated eosinophil %.[facility] HospitalErythrocyte Sedimentation Rateon 41-21-8618WBA (Bld) [Velocity]44 mm/hHigh 0-19The [facility] Rex Physician GroupComment on above:Result Comment: PERFORMED BY: [place] [address] PATHOLOGIST PROGRAM EVALUATION CONSULTANT FARRAH PAUL M.D.Performed By: #### CBC, BMP, FE PRO, B12, ESR, CRP #### [place] [address] USAErythrocyte distribution width Auto (RBC) [Ratio]Ordered By: Ninastefan River on 69-62-2367Bntlhbyolqh distribution width (RBC) [Ratio] Erythrocyte distribution width [Ratio] by Automated wkgscGuuh13.0-14.8[facility] HospitalErythrocyte sedimentation rate by Photometric method Ordered By: Nina Aleta on [id number] Photometric method (Bld) [Velocity] Erythrocyte sedimentation rate by Photometric methodHigh0-19C[facility] Clinic Union HospitalFE PROon 02-08-2024% Iron SaturationNot xucazawisNbuuxw90-08Vru [facility] Physician GroupComment on above:Performed By: #### CBC, BMP #### [place] [address] USAFerritin [Mass/Vol]422.9 ng/pRTvbx90.9-336.2The [facility] Rex Physician GroupComment on above:Performed By: #### CBC, BMP #### [place] [address] USAIron [Mass/Vol]ug/sFYuv51-654Nng [facility] Comment on above:Performed By: #### CBC, BMP #### [place] [address] USATotal Iron Binding Afrzdbjl038 ug/qJTak098-097Gcm [facility] Physician GroupComment on above:Performed By: #### CBC, BMP #### [place] [address] USATransferrin [Mass/Vol]125 mg/cTKxq997-671Laz [facility] Physician GroupComment on above:Performed By: #### CBC, BMP #### [place] [address] USAFerritin [Mass/volume] in Serum or PlasmaOrdered By: Nina River on 88-84-9051Ernylbnj [Mass/Vol]Ferritin [Mass/volume] in Serum or JouaplVjtl45.9-336.2FUniversity Hospitals Portage Medical CenterGlucose [Mass/volume] in Serum or PlasmaOrdered By: Nina River on 73-17-6030Grhzucl [Mass/Vol] Glucose [Mass/volume] in Serum or WgvrksFhsv81-302ZgtpeabqyCleveland Clinic Union HospitalComment on above:ADA recommended reference rangeRandom Glucose Reference Range is dependent on time and content of last meal. Glucose of more than 200 mg/dL in a nonstressed, ambulatory subject supports the diagnosisof Diabetes Mellitus.Hematocrit Auto (Bld) [Volume fraction]Ordered By: Nina River on 75-11-1866Pizmijcnrd (Bld) [Volume fraction]Hematocrit [Volume Fraction] of Blood by Automated stferQic86.8-50.0[facility] Union HospitalHemoglobin [Mass/volume] in BloodOrdered By: Nina River on 44-87-3307Avnpdswyhd (Bld) [Mass/Vol]Hemoglobin [Mass/volume] in PjtbyJdz24.0-17.0[facility] Union HospitalIron [Mass/volume] in Serum or PlasmaOrdered By: Nina River on 72-77-8855Ymdk [Mass/Vol]Iron [Mass/volume] in Serum or UhmzngEro93-794 [facility] HospitalLeukocytes [#/volume] corrected for nucleated erythrocytes in Blood by Automated counOrdered By: Nina River on 02-08-2024 WBC corrected for nucl RBC Auto (Bld) [#/Vol]Leukocytes [#/volume] corrected for nucleated erythrocytes in Blood by Automated coun4.1-10.5FUniversity Hospitals Portage Medical CenterLymphocytes Auto (Bld) [#/Vol]Ordered By: Nina River on 34-80-4337Toqumchcqfg (Bld) [#/Vol]Lymphocytes [#/volume] in Blood by Automated countLow1.00-4.8[facility] Union HospitalLymphocytes/100 WBC Auto (Bld) Ordered By: Nina River on 77-53-3645Tktzpaszapn/100 WBC (Bld)Lymphocytes/100 leukocytes in Blood by Automated count.[facility] CampusH Auto (RBC) [Entitic mass]Ordered By: Nina River on 17-77-9277ADH (RBC) [Entitic mass]MCH [Entitic mass] by Automated lhahvZrb99.5-35.2FUniversity Hospitals Portage Medical CenterMCHC Auto (RBC) [Mass/Vol]Ordered By: Nina Aleta on 85-57-3941KPLN (RBC) [Mass/Vol]MCHC [Mass/volume] by Automated count32.5-35.6 [facility] HospitalMCV Auto (RBC) [Entitic vol]Ordered By: Nina Aleta on 87-51-7985AHY (RBC) [Entitic vol]MCV [Entitic volume] by Automated wooloVcr78.5-101C[facility] Union HospitalMonocytes Auto (Bld) [#/Vol] Ordered By: Nina River on 22-34-1896Zggrhgisn (Bld) [#/Vol]Automated blood monocyte count0.0-0.8[facility] Union HospitalMonocytes/100 WBC Auto (Bld)Ordered By: Nina River on 73-69-6501Stisflemt/100 WBC (Bld)Automated monocyte %.[facility] HospitalNeutrophils Auto (Bld) [#/Vol] Ordered By: Nina Aleta on 05-28-5505Ilxtajjdfxj (Bld) [#/Vol]Neutrophils [#/volume] in Blood by Automated countHigh1.8-7.7FUniversity Hospitals Portage Medical CenterNeutrophils/100 WBC Auto (Bld)Ordered By: Nina River on 02-08-2024 Neutrophils/100 WBC (Bld)Automated neutrophil %.[facility] HospitalNo Panel InformationOrdered By: Nina River on 47-16-8460Dskyucucv GFR (CKD-EPI)48.779 mL/MinCleveland Clinic Union HospitalPharmacy Creatinine Clearance (ChemN/[facility] HospitalNucleated erythrocytes [Presence] in Blood by Automated countOrdered By: Nina River on 02-08-2024 Nucleated RBC Auto Ql (Bld)Nucleated erythrocytes [Presence] in Blood by Automated count0-0.5FUniversity Hospitals Portage Medical CenterPlatelet mean volume Auto (Bld) [Entitic vol]Ordered By: Nina River on 31-12-8915Pipkpszg mean volume (Bld) [Entitic vol]Platelet mean volume [Entitic volume] in Blood by Automated count6.6-10.1FUniversity Hospitals Portage Medical CenterPlatelets Auto (Bld) [#/Vol] Ordered By: Nina Aleta on 71-79-9403Kcjhpkcee (Bld) [#/Vol]Platelets [#/volume] in Blood by Automated -724XaxslprlyCleveland Clinic Union Hospital Potassium [Moles/volume] in Serum or PlasmaOrdered By: Nina River on 98-30-7604Mndvhxrqv [Moles/Vol]Potassium [Moles/volume] in Serum or Plasma 3.5-5.1FUniversity Hospitals Portage Medical CenterRBC Auto (Bld) [#/Vol]Ordered By: Nina River on 67-74-2302LNR (Bld) [#/Vol]Erythrocytes [#/volume] in Blood by Automated countLow3.90-5.60[facility] Community Hospitalerum or plasma anion gap determinationOrdered By: Nina River on 98-29-5919Ipkks gap [Moles/Vol]Serum or plasma anion gap determination6.0-15.0W[facility]oster Community Hospitalerum or plasma iron binding capacity measurement (mass/volume) Ordered By: Nian River on 63-48-3501Nsuk binding capacity [Mass/Vol]Iron binding capacity [Mass/volume] in Serum or EseiqxNne980-031VautxbpzfWooster Community Hospitalerum or plasma iron saturation measurement (mass fraction)Ordered By: Nina River on 45-57-4833Ouox saturation [Mass fraction]Iron saturation [Mass Fraction] in Serum or PlasmaCleveland Clinic Union HospitalComment on above:Test not performedSodium [Moles/volume] in Serum or PlasmaOrdered By: Nina Rivre on 15-10-3555Zaronw [Moles/Vol]Sodium [Moles/volume] in Serum or Eksfar284-926MypzemzrxCleveland Clinic Union HospitalTransferrin [Mass/volume] in Serum or PlasmaOrdered By: Nina River on 15-16-6583Pbpmzrlcldi [Mass/Vol] Transferrin [Mass/volume] in Serum or DtdlbkSav898-566MvondrknwCleveland Clinic Union HospitalUrea nitrogen [Mass/volume] in Serum or PlasmaOrdered By: Ninastefan River on 83-79-9400Epwj nitrogen [Mass/Vol]Urea nitrogen [Mass/volume] in Serum or Plasma7-25C[facility] Clinic Union HospitalVitamin B12on 93-17-2701Ffyyvifmv (Vitamin B12) [Mass/Vol]701 pg/mURwcbme990-151Zdy [facility] Comment on above:Result Comment: PERFORMED BY: [place] [address] PATHOLOGIST PROGRAM EVALUATION CONSULTANT FARRAH PAUL M.D.Performed By: #### CBC, BMP #### [place] [address] USAVitamin B12 ser/plasOrdered By: Nina River on 53-49-3427Ptqopoeuj (Vitamin B12) [Mass/Vol]Vitamin B12 ser/ljml903-306ChpvgdxhtCleveland Clinic Union HospitalWBC Auto (Bld) [#/Vol]Ordered By: Nina River on 85-10-8652NYO (Bld) [#/Vol]Leukocytes [#/volume] in Blood by Automated count 4.1-10.5FUniversity Hospitals Portage Medical CenterALL CBC WITH AUTO DIFFon 12-02-2023 BASOPHILS ABSOLUTE AUTO0.0NOMS HealthcareBasophils/100 WBC (Bld)0.3 %0.2 - 2.0 % [facility] HealthcareEosinophils/100 WBC (Bld)6.4 %0.9 - 7.0 %[facility] Erythrocyte distribution width (RBC) [Ratio]16.8 %High11.0 - 15.0 %[facility] HealthcareHematocrit (Bld) [Volume fraction]29.4 %Low42.0 - 54.0 %[facility] HealthcareHemoglobin (Bld) [Mass/Vol]9.0 g/dLLow14.0 - 18.0 g/dLNOMS Healthcare IMMATURE GRANULOCYTES ABS AUTO0.04HighNOMS HealthcareImmature granulocytes/100 WBC (Bld)0.4 %0.0 - 0.5 %[facility] HealthcareInterpretation and review of laboratory resultsAbnormalLAYTON HOSPITAL HealthcareLYMPHOCYTES ABSOLUTE AUTO1.8NOMS [facility] Lymphocytes/100 WBC (Bld)17.7 %Low20.5 - 60.0 %[facility] InstituteH (RBC) [Entitic mass]25.3 pgLow25.9 - 34.0 pgFreeman Cancer InstituteHC (RBC) [Mass/Vol]30.6 g/dL29.9 - 35.2 g/dLFreeman Cancer InstituteV (RBC) [Entitic vol]82.6 fL80.0 - 94.0 fLSaint Mary's Hospital of Blue SpringsMONOCYTES ABSOLUTE AUTO0.7NOIA HealthcareMonocytes/100 WBC (Bld)6.7 % 1.7 - 12.0 %[facility] HealthcareNEUTROPHILS ABSOLUTE AUTO7.1HighNOSaint John's Hospital Neutrophils/100 WBC (Bld)68.5 %43.0 - 75.0 %[facility] Blue SpringsPlatelet mean volume (Bld) [Entitic vol]8.8 fLLow9.5 - 13.5 fLNOSaint John's HospitalTBH EO #0.7NOMS HealthcareTB RPZ153DZHJ [facility] HospitalTB RBC3.56LowNOMS [facility] HospitalTB WBC10.3NOIA HealthcareCLINISYNCNOMS HealthcareBONE MARROWon 52-23-7653TKKU MARROWSEE SEPARATE REPORTNormalProMedica Valley Children’S HospitalComment on above:Result Comment: REVIEWED BY SOLEDAD HUYNH M.D.Performed By: #### EXHR, 65364-0, MDSDF #### [facility] ([id number]) [address] [place] [address], [place] [address] #### 70314-8, BONMAR #### [facility] ([id number]) [address] [place] [address], [address] [place], [place] [address]MQM AND AUTO DIFFon 98-01-6115BDSEYLMA BASOPHIL0.0 X10E9/LNormal 0.0-0.2ProMedica Valley Children’S HospitalComment on above:Performed By: #### PINPratik, CBCA #### [facility] ([id number]) [address] [place] [address]HAAFHSJH NEUTROPHIL8.0 X10E9/LHigh1.5-6.6Ohio[facility] Berger HospitalComment on above:Performed By: #### MINDY HANNAH #### [facility] ([id number]) [address] [place] [address] 92084Ktxuynqgg/100 WBC (Bld)0.3 %[facility] Comment on above:Performed By: #### MINDY HANNAH #### [facility] ([id number]) [address] [place] [address] 31049Khmbcdavaal (Bld) [#/Vol]0.5 10*3/uLHigh0.0-0.4OhioHealth Berger HospitalComment on above:Performed By: #### MINDY HANNAH #### [facility] ([id number]) [address] [place] [address] 30349Avlwolqfkbd/100 WBC (Bld)4.4 %[facility] Comment on above:Performed By: #### MINDY HANNAH #### [facility] ([id number]) [address] [place] [address] 31316Iggogmtaspq distribution width (RBC) [Ratio]16.8 %High11.5-15.0 [facility] Berger HospitalComment on above:Performed By: #### MINDY HANNAH #### [facility] ([id number]) [address] [place] [address] 92146Dckpzpdvdy (Bld) [Volume fraction]20.1 %Pef35-35IpkXzpagjOhioHealth Berger HospitalComment on above:Performed By: #### MINDY HANNAH #### [facility] ([id number]) [address] [place] [address] 13399Oqhpolcqtu (Bld) [Mass/Vol]6.6 g/dLCritically low13.0-17.0 [facility] Hospitaledica Valley Children’S HospitalComment on above:Performed By: #### MINDY HANNAH #### [facility] ([id number]) [address] [place] [address] 55435Kgbfddebyro (Bld) [#/Vol]1.4 10*3/uLNormal1.0-3.5ProMedica Valley Children’S HospitalComment on above:Performed By: #### [place] CBCGeoff #### [facility] ([id number]) [address] [place] [address] 61518Dqhbgmcihml/100 WBC (Bld)13.0 %NormalOhioHealth Berger Hospital Comment on above:Performed By: #### MINDY HANNAH #### [facility] ([id number]) [address] [place] [address] 25418ZLM (RBC) [Entitic mass]24.7 gwAbh50-23HqqFmkhulOhioHealth Berger HospitalComment on above:Performed By: #### [place] CBCGeoff #### [facility] ([id number]) [address] [place] [address] 98295LIDB (RBC) [Mass/Vol]32.6 g/mQWizstr35-49DqjJypfpoOhioHealth Berger HospitalComment on above:Performed By: #### MINDY HANNAH #### [facility] ([id number]) [address] [place] [address] 17083VKP (RBC) [Entitic vol]76 rEZcq76-289ZfbJrhxdlOhioHealth Berger Hospital Comment on above:Performed By: #### [place] CBCA #### [facility] ([id number]) [address] [place] [address] 53812Uxcecyhyy (Bld) [#/Vol]0.9 10*3/uLNormal0-0.9OhioHealth Berger HospitalComment on above:Performed By: #### PINR, CBCA #### [facility] ([id number]) [address] [place] [address] 66839Jwrehilbv/100 WBC (Bld)8.2 %[facility] Comment on above:Performed By: #### MINDY HANNAH #### [facility] ([id number]) [address] [place] [address] 90094Lymudetjxvl/100 WBC (Bld)74.1 %[facility] Comment on above:Performed By: #### MINDY HANNAH #### [facility] ([id number]) [address] [place] [address] 55330Duyxwjah mean volume (Bld) [Entitic vol]7.0 fLNormal7-12 [facility] Berger HospitalComment on above:Performed By: #### MINDY HANNAH #### [facility] ([id number]) [address] [place] [address] 55537Cdrewoapv (Bld) [#/Vol]371 10*3/oODlacos479-651AboLgoswsOhioHealth Berger HospitalComment on above:Performed By: #### MINDY HANNAH #### [facility] ([id number]) [address] [place] [address] 91099XOR COUNT2.66 X10E12/LLow4.10-5.70[facility] Comment on above:Performed By: #### [place] CBCA #### [facility] ([id number]) [address] [place] [address] 09523UNJ (Bld) [#/Vol]10.8 10*3/uLNormal4.0-11.0OhioHealth Berger HospitalComment on above:Performed By: #### TONY HANNAHA #### [facility] ([id number]) [address] [place] [address] 35[address]VUH and RNA Extract and Holdon 54-83-3707FJT and RNA Extract and HoldSEE COMMENTS 10/14/2023 08:52 AMNormalProMedica Vencor Hospital on above:Result Comment: NOTE Test Result Flag Unit RefValue [...] Molecular Hematopathology Laboratory's test catalog, please contact [facility] at [phone]. Method summary: DNA and RNA were extracted from the received specimen and stored at -80 C. This test was developed and its performance characteristics determined by [facility] in a manner consistent with CLIA requirements. This test has not been cleared or approved by the U.S. Food and Drug Administration. Test Performed by: [address] [address] Perinatal Coordinator: Rosie Ruby Ph.D.; CLIA# [id number] By: #### KIM, 93799-4, BERNABE #### [facility] ([id number]) [address] [place] [address] #### 48008-1, PENNY #### [facility] ([id number]) [address] [place] [address], [address] [place], [place] [address]Gpzp cytometry specialist review Álvaro (Unsp spec) [Interp]on 46-99-1075MLES CYTOMETRY BMSEE SEPARATE REPORT, REVIEWED BY PATHOLOGISTNormal [facility] on above:Performed By: #### KIM, 48122-5, MDSMARYANN #### [facility] ([id number]) [address] [facility], [place] [address] #### 56408-8, PENNY #### [facility] ([id number]) [address], [address] [place], [place] [address]YY BX AND ASP BONE MARROW SNGL OR MULTon 54-16-2448EN BX AND ASP BONE MARROW SNGL OR MULTIR BX AND ASP BONE MARROW SNGL OR [...] on the left iliac bone using an [employer] powered bone marrow biopsy system. The bone [...] by Khadar Guerrero MD on 10/11/2023 9:49 AMNormalOhioHealth Berger HospitalKaryotype Nom (BM)on 04-96-0598BLIGQDJLXL BONE MARROWSEE COMMENTS 10/19/2023 02:37 PMNormalOhioHealth Berger HospitalComment on above:Result Comment: NOTE Test Result Flag Unit RefValue Chromosomes, Hematologic, BM Result Summary Normal Interpretation See Note No clonal abnormality was apparent. Since this conventional chromosome study was successful, MDS, Diag FISH was cancelled per lab protocol (Isma Christie et al., [facility], 146:86-94, 2016; [facility] MDS Algorithm: [email or web address]-mmfiles/Myelodysplastic_Syndrome_G uideline_to_Diagnosis_and_Follow-up.pdf). Result 46,XY[20] Reason for Referral leukocytosis [...] the testing process was performed at [facility] [employer] site 975951. Released By Tanvi Loo M.D. Test Performed by: [facility] - [address] [address] Perinatal Coordinator: Rosie Ruby Ph.D.; CLIA# [id number] By: #### EXHR, 47653-3, MDSDF #### [facility] ([id number]) [address] [place] [address] #### 51601-9, PENNY #### [facility] ([id number]) [address] [facility], [address] [place], [place] [address]NBHITHKPLKLEUKU SYNDROME (MDS),DIAGNOSTIC FISH, Jerry 73-94-7150FPDTRLJWTVFHFVQ SYNDROME (MDS),DIAGNOSTIC FISH, ANGELA COMMENTS 10/22/2023 08:45 AMNormalHolzer Medical Center – Jacksonca Valley Children’S HospitalComment on above:Result Comment: NOTE Test Result Flag Unit RefValue MDS, Diagnostic FISH Interpretation TNP MDS, Diagnostic FISH was cancelled on 10/22/2023 at 08:41; Based on other test results additional testing not required. MDS FISH order was cancelled per laboratory protocol (Isma et al., Amer J Clin Pathol 146:86-94, 2016; [facility] MDS Algorithm: [email or web address]-[email or web address]/Myelodysplastic_S yndrome_Guideline_ to_Diagnosis_and_Follow-up.pdf) with Probes -RPN1(G)/MECOM(R), -TP53(R)/D17Z1(G), -D8Z2(G)/MYC(R), -Z29K072(R)/20QTER(G), -U8E065(G)/EGR1(R), -D7Z1(G)/F5E254(R) Test Performed by: [facility] [place] [address] Perinatal Coordinator: Rosie Ruby Ph.D.; CLIA# [id number] By: #### EXHR, 48375-7, MDSDF #### [facility] ([id number]) [address] [place] [address] #### 40088-3, PENNY #### [facility] ([id number]) [address] [place] [address], [address] [place], [place] [address]PKPJPFM AND INRon 78-84-5419UGT Coag (PPP) [Relative time]1.3 {INR}High0.8-1.1PNewark HospitalComment on above:Performed By: #### PINR, CBCA #### [facility] ([id number]) [address] [place] [address] 013[address]ZC Coag (PPP) [Time]14.9 sHigh9.8-13.2PNewark HospitalComment on above:Result Comment: NEW REFERENCE RANGEPerformed By: #### PINR, CBCA #### [facility] ([id number]) [address] [place] [address]Ocejqbyp Pathologyon 64-84-4520Nivlpsly PathologyNormal [facility] HospitalComment on above:Result Comment: [facility] [employer] [facility] [address] [place] [address] Bone Marrow Consultation Patient Name:GANGA STINSON:1960 (Age: 63)Gender:MTaken:4Reported:4Physician(s):Nina River ([phone])Copy To:Khadar Guerrero M.D. Rec. #: [id number]: #[id number] Final Pathologic Diagnosis Bone marrow, aspiration and [...] the marrow aspirate cells demonstrates maturing hematopoietic elements.Blasts are not increased on CD45/side scatter analysis or CD34 staining. No aberrant patterns of antigen acquisition are identified on maturing myeloid cells. [place] on the lymphoid population demonstrates a mixed population of phenotypically unremarkable T-cells, polyclonal B-cells, and natural killer cells, without a detectable monoclonal population. No monotypic plasma cell population is identified. Immunophenotyping antibodies tested: CD2, CD3, CD4, CD5, CD7, CD8, CD10, CD13, CD16, CD19, CD20 , CD23, CD33, CD34, CD38, CD43, CD45, CD56, CD117, CD123, CD138, Olar, Lambda. Cytoplasmic Olar/CD38,Cytoplasmic Lambda/CD38, and intrinsic VS38 Immunophenotyping Comment: Immunophenotyping has been used in this diagnostic evaluation. This test was developed and its performance characteristics determined by the [employer] [facility] Department. It has not been [...] Out Soledad Huynh MD Interpretation performed [place] [address], License number: [id number]. Clinical History Leukocytosis. Gross Description 1. Received in B plus fixative labeled ALLOWAY, clot is a friable portion of hemorrhagic material, 2.2 x 1.0 x 0.4 cm in aggregate. The specimen is submitted entirely in a single cassette. (1, ns, [id number], m1) LADONNA 2. Received in B plus fixative labeled ALLOWAY, core is a pale osborne-pardo cylindrical segment of bone with adherent hemorrhagic material, 1.0 cm in length and 0.2 cm in diameter. The specimen is submitted entirely in a single cassette following a period of decalcification in Rapid-Delbert Immuno. (1, ns, [id number], m1) LADONNA Comment: Per epic IR procedure [...] Monocytes (7-23%) 7.5 l (more content not included)...Glucose Glucometer (BldC) [Mass/Vol] Ordered By: Jonathan Moffett on 32-32-8038Ossboxf [Mass/Vol]134 mg/dLCleveland Clinic Union HospitalComment on above:Random Glucose Reference Range is dependent on time and content of last meal. Glucose of more than 200 mg/dL in a nonstressed, ambulatory subject supports the diagnosis of Diabetes Mellitus.Gram stain for investigation of transfusion reactionOrdered By: Jonathan Moffett on 71-00-3693Jgfletomvtz observation Gram stain Nom (Unsp spec)Prevotella disiens [facility] Union HospitalMR ANKLE LT WO CONon 80-14-7131[place] [address] Magnetic Resonance Report Signed Patient: GANGA STINSON MR#: [id number] : 1960 Acct:[id number] Age/Sex: 62 / M ADM Date: 05/18/23 Loc: MRI Attending Dr: JONATHAN MOFFETT Ordering Physician: JONATHAN MOFFETT Date of Service: 05/18/23 Procedure(s): ankle LT wo con Accession Number(s): [id number] cc: JONATHAN MOFFETT ; Fidel Abbott M.D. [facility] [place] [address] Patient Name: GANGA STINSON MRN: [id number] date: 1960 Sex: M Assigned Patient Location: MRI Current Patient Location: MRI Accession/Order Number: [id number] Exam Date: 05/18/2023 10:51 Report Date: 05/18/2023 16:05 At the request of: JONATHAN MOFFETT Procedure: MR ankle LT wo con [...] excluded by imaging. Electronically authenticated by: ERIC HAQUE Date: 05/18/2023 16:05 Dictated By: Eric Haque M.D. Signed By: 05/18/23 1648 DD/ 1605 TD/TT: Management Lead:TBHRadiology, Radiologist, - 05/18/2023 [place] [address] Magnetic Resonance Report Signed Patient: GANGA STINSON MR#: [id number] : 1960 Acct:[id number] Age/Sex: 62 / M ADM Date: 05/18/23 Loc: MRI Attending Dr: JONATHAN MOFFETT Ordering Physician: JONATHAN MOFFETT Date of Service: 05/18/23 Procedure(s): MR ankle LT wo con Accession Number(s): [id number] cc: JONATHAN MOFFETT ; Fidle Abbott M.D. [facility] [place] [id number] Patient Name: GANGA STINSON MRN: [id number] date: 1960 Sex: M Assigned Patient Location: MRI Current Patient Location: MRI Accession/Order Number: [id number] Exam Date: 05/18/2023 10:51 Report Date: 05/18/2023 16:05 At the request of: JONATHAN MOFFETT Procedure: MR ankle LT wo con [...] excluded by imaging. Electronically authenticated by: ERIC HAQUE Date: 05/18/2023 16:05 Dictated By: Eric Haque M.D. Signed By: 05/18/23 1648 DD/ 1605 TD/TT: Management Lead: DAISY [facility] HospitalRadiology Study observation (narrative)[facility] ANKLE LT WO CONOrdered By: Radiologist Radiology on 16-73-2044DCWU Healthcare Work Phone: cult,Urineon 56-74-7469Vbiq,UrineSpecimen Description .CLEAN CATCH URINE Culture NO SIGNIFICANT GROWTH Report Status FINAL 09/26/2022NoOhioHealth Riverside Methodist HospitalComment on above: Performed By: #### CMPX, CDP #### [facility] [address] [place] [address] Perinatal Coordinator: ANICETO Ortega RENAL COMPLETEon 91-30-3659PW RENAL COMPLETE EXAMINATION: RETROPERITONEAL ULTRASOUND OF THE [...] Signed by: Alexander Mcclain DO 09/19/22 Final resultNormalGlenbeigh HospitalUnremarkable ultrasound of the kidneys and urinary bladder. [facility] CONSOLIDATEDEXAMINATION: RETROPERITONEAL ULTRASOUND OF THE KIDNEYS AND URINARY BLADDER 09/18/2022 COMPARISON: None HISTORY: ORDERING SYSTEM PROVIDED HISTORY: Cauda equina syndrome (HCC) FINDINGS: Kidneys: The right kidney measures 10.9 cm in length and the left kidney measures 11.5 cm in length. Kidneys demonstrate normal cortical echogenicity. No evidence of hydronephrosis or intrarenal stones. Bladder: Unremarkable appearance of the bladder. No significant post void residual. [facility] Alexander Amanda DO - 09/19/2022 EXAMINATION: RETROPERITONEAL ULTRASOUND OF [...] the kidneys and urinary bladder. [facility]US RENAL COMPLETEOrdered By: Alexander Mcclain on [id number] Work Phone: Basic Metabolic Profon [id number] gap [Moles/Vol] 10 mmol/LNormal9-17Glenbeigh HospitalComment on above:Performed By: #### BMP #### [facility] [address] [place] [address] Perinatal Coordinator: UCHE Ortega/CRE Enuwx37Smns1-51YtffhGlenbeigh Hospital Comment on above:Performed By: #### BMP #### [facility] [address] [place], [place] [address] Perinatal Coordinator: SALLY Ortegaalcium [Mass/Vol]9.3 mg/dLNormal8.6-10.4Glenbeigh HospitalComment on above:Performed By: #### BMP #### [address] [place] [address] Perinatal Coordinator: SALLY Ortegahloride [Moles/Vol]105 mmol/WYulwur34-812GnfipGlenbeigh HospitalComment on above:Performed By: #### BMP #### [address] [place] [id number] Perinatal Coordinator: Khadar Tang MDCO2 [Moles/Vol]22 mmol/MJkcffh84-32WpcycGlenbeigh HospitalComment on above:Performed By: #### BMP #### [address] [place] [id number] Perinatal Coordinator: SALLY Ortegareatinine [Mass/Vol]1.25 mg/dLHigh0.70-1.20Glenbeigh HospitalComment on above:Performed By: #### BMP #### [address] [place] [address] Perinatal Coordinator: Khadar Tang MDGFR/1.73 sq M.predicted among non-blacks MDRD (S/P/Bld) [Vol rate/Area]mL/min/{1.73_m2}Normal>60Glenbeigh HospitalComment on above:Result Comment: These results are not intended for [...] or following therapy that affects renal tubular secretion.Performed By: #### BMP #### [address] [place] [address] Perinatal Coordinator: Khadar Tang MDGlucose [Mass/Vol]186 mg/tEDrct30-62Ujhib The Institute Of LivingComment on above:Performed By: #### BMP #### [address] [place], [place] [address]83 Perinatal Coordinator: LAWRENCE Ortegaotassium [Moles/Vol]4.1 mmol/LNormal3.7-5.3MSycamore Medical Center HospitalComment on above:Performed By: #### BMP #### [facility] [address] [place] [id number] Perinatal Coordinator: SAMMI Ortegaodium [Moles/Vol]137 mmol/WDftevl104-475RgctvGlenbeigh HospitalComment on above:Performed By: #### BMP #### [address] [place], [place] [id number] Perinatal Coordinator: Khadar Tang MDUrea nitrogen [Mass/Vol]32 mg/dLHigh8-23Glenbeigh HospitalComment on above:Performed By: #### BMP #### [address] [place], [place] [id number] Perinatal Coordinator: ANICETO Ortega RENAL COMPLETEon [id number] Study observation (narrative)[facility] MAIN CAMPUSHemoglobin A1Con 2022 Glucose [Mass/Vol]171 mg/dLNormalGlenbeigh HospitalComment on above:Result Comment: The ADA and AACC recommend providing the estimated average glucose result to permit better patient understanding of their HBA1c result.Performed By: #### GLYHGB #### [employer] [address] [place] [address] Perinatal Coordinator: Jeff Casanova MDHbA1c (Bld) [Mass fraction]7.6 %High4.0-6.0Glenbeigh HospitalComment on above:Performed By: #### GLYHGB #### [employer] [address] [place] [address] Perinatal Coordinator: Jeff Casanova MDOPERATIVE REPORTon [id number] REPORT [address] [address] OPERATIVE REPORT PATIENT NAME: GANGA STINSON : 1960 MED REC NO: [id number] ROOM: ACCOUNT NO: [id number] ADMIT DATE: 2022 PROVIDER: Angeles Nagy DATE OF PROCEDURE: 2022 SURGEON: Dr. Angeles Nagy. PIT SHOVELER: None. PREOPERATIVE DIAGNOSES: 1. Neurogenic bladder. 2. Urethral stricture. POSTOPERATIVE DIAGNOSES: 1. Neurogenic bladder. 2. Urethral stricture. PROCEDURE PERFORMED: Direct visual internal urethrotomy. ANESTHESIA: General. COMPLICATIONS: None. ESTIMATED BLOOD LOSS: Minimal. SPECIMENS: None. PROSTHESIS: An 18-Thai Rowe catheter. DISPOSITION: Stable. FINDINGS: Bulbous urethral [...] placed in dorsal lithotomy. He had a 21-Thai sheath with a 30-degree lens passed through [...] then removed the scope and inserted an 18-Thai Rowe catheter with ease. He was then awoken from general anesthesia, transferred to the [facility], and taken to the PACU in satisfactory condition by Nursing and Anesthesia Teams. PLAN: The patient will be discharged home per PACU criterion and follow up with me in one week for Rowe catheter removal. ANGELES NAGY [place]RI[place]/Jerry_CGGIS_I Doc#: [id number] CC:NormalMercy Middlesex Hospital Metabolic Panelon [id number] gap [Moles/Vol]10 mmol/L9 - 17 mmol/LBON SECAlluring Logic HEALTHCalcium [Mass/Vol]8.8 mg/dL8.6 - 10.4 mg/dLBON SECAlluring Logic HEALTHChloride [Moles/Vol]106 mmol/L98 - 107 mmol/LBON SECSmallRiversCO2 [Moles/Vol]24 mmol/L20 - 31 mmol/LBON SECSmallRiversCreatinine [Mass/Vol]1.3 mg/dLHigh0.70 - 1.20 mg/dLBON LinkStormGFR/1.73 sq M.predicted MDRD (S/P/Bld) [Vol rate/Area]- TSAILE HEALTH CENTERSmallRiversComment on above: These results are not intended [...] therapy that affects renal tubular secretion. Glucose [Mass/Vol]250 mg/vYOmsj23 - 99 mg/dLBON LinkStorm Interpretation and review of laboratory resultsAbnormalBON [facility] CENTERSmallRivers Potassium [Moles/Vol]4.0 mmol/L3.7 - 5.3 mmol/LBON SECSmallRiversSodium [Moles/Vol]140 mmol/L135 - 144 mmol/LBON [facility] CENTERSmallRiversUrea nitrogen [Mass/Vol]29 mg/dLHigh8 - 23 mg/dLBON [facility] CENTERSmallRiversUrea nitrogen/Creatinine (Bld) [Mass ratio]95Taak9 - 20BON SENECA HOSPITALZebra Technologies TWIN CITY HOSPITALBON SECAlluring Logic T[facility] CITY HOSPITALBasic Metabolic Profon 32-61-6603Ymupg gap [Moles/Vol]10 mmol/LNormal9-17Glenbeigh HospitalComment on above:Performed By: #### CMPX, CDP #### [facility] [address] [place] [address] [place] [address] Perinatal Coordinator: Khadar Tang MDBUN/CRE Lrilg11Fity1-61ZshmgGlenbeigh Hospital Comment on above:Performed By: #### CMPX, CDP #### [facility] [address] [place] [address] Dr. [place], [place] [address]6783 Perinatal Coordinator: SALLY Ortegaalcium [Mass/Vol]8.8 mg/dLNormal8.6-10.4Glenbeigh HospitalComment on above:Performed By: #### CMPX, CDP #### [address] [place] [address] Perinatal Coordinator: SALLY Ortegahloride [Moles/Vol]106 mmol/EFhmact42-569WyaqcGlenbeigh HospitalComment on above:Performed By: #### CMPX, CDP #### [address] [place] [address] Perinatal Coordinator: Khadar Tang MDCO2 [Moles/Vol]24 mmol/CLuqmof62-27ZzddoGlenbeigh HospitalComment on above:Performed By: #### CMPX, CDP #### [address] [place] [address] Perinatal Coordinator: SALLY Ortegareatinine [Mass/Vol]1.30 mg/dLHigh0.70-1.20Glenbeigh HospitalComment on above:Performed By: #### CMPX, CDP #### [address] [place] [address] Perinatal Coordinator: Khadar Tang MDGFR/1.73 sq M.predicted among non-blacks MDRD (S/P/Bld) [Vol rate/Area]mL/min/{1.73_m2}Normal>60[facility] Clarkedale HospitalComment on above:Result Comment: These results are not intended for [...] or following therapy that affects renal tubular secretion.Performed By: #### CMPX, CDP #### [address] [place] [address] Perinatal Coordinator: Khadar Tang MDGlucose [Mass/Vol]250 mg/yWEagw52-35NoyzuParkwood HospitalComment on above:Performed By: #### CMPX, CDP #### [address] [place] [address] Perinatal Coordinator: LAWRENCE Ortegaotassium [Moles/Vol]4.0 mmol/LNormal3.7-5.3MSycamore Medical Center HospitalComment on above:Performed By: #### CMPX, CDP #### [address] [place] [address] Perinatal Coordinator: SAMMI Ortegaodium [Moles/Vol]140 mmol/WHcmbxf996-870MjocnGlenbeigh HospitalComment on above:Performed By: #### CMPX, CDP #### [address] [place], [facility]83 Perinatal Coordinator: Khadar Tang MDUrea nitrogen [Mass/Vol]29 mg/dLHigh8-23Glenbeigh HospitalComment on above:Performed By: #### CMPX, CDP #### [address] [place], [place] [id number] Perinatal Coordinator: Khadar Tang [facility] with Auto Differentialon [id number] Eos #0.80HighBON SECOURS CENTERVILLEY HEALTHAbsolute Immature Granulocyte0.06[facility]ENTERVILLEY HEALTHAbsolute Lymph #1.38B[facility] HEALTHAbsolute Spink # 0.81B[facility] SEC[facility]RS [facility] HEALTHBasophils AbsoluteBON SECOURS [facility] HEALTH Basophils/100 WBC (Bld)0 %0 - 2 %[facility] HEALTHEosinophils/100 WBC (Bld)7 %High1 - 4 %BON SECUZMA KETTERING HEALTH MAIN CAMPUSHematocrit (Bld) [Volume fraction] 26.8 %Low40.7 - 50.3 %BON CENTERVILLEHemoglobin (Bld) [Mass/Vol]7.9 g/dLLow13.0 - 17.0 g/dLBON SECOURS KETTERING [facility]ALTH MAIN CAMPUSImmature granulocytes/100 WBC (Bld)1 %Mfht1RQT SECCHILDREN'S HOSPITAL OF [facility]ANS HEALTHInterpretation and review of laboratory resultsAbnormalBON SECOURS KETTERING HEALTH MAIN CAMPUSLymphocytes/100 WBC (Bld)13 %Low24 - 43 % RAIN GALION COMMUNITY HOSPITALH (RBC) [Entitic mass]23.3 pgLow25.2 - 33.5 pgBON SECTRINITY HEALTH SYSTEM TWIN CITY MEDICAL CENTERHC (RBC) [Mass/Vol]29.5 g/dL28.4 - 34.8 g/dLBON SECUZMA CENTERVILLELowell TWIN CITY HOSPITALMCV (RBC) [Entitic vol]79.1 fLLow82.6 - 102.9 fLBON SECUZMA [facility] HEALTHMonocytes/100 WBC (Bld)8 %3 - 12 %RAIN CENTERVILLENRBC Automated 0.00.0 per 100 WBCBON SECUZMA [facility] HEALTHPlatelet distribution width (Bld) [Ratio]16.1 %High11.8 - 14.4 %BON SECCHILDREN'S HOSPITAL OF NEW ORLEANS HEALTHPlatelet mean volume (Bld) [Entitic vol]9.1 fL8.1 - 13.5 fLBON SECOURS [facility]TY [facility] HEALTHPlatelets (Bld) [#/Vol] 241 10*3/uLBON SECOURS [facility] HEALTHRBC (Bld) [#/Vol]3.39 10*6/uLLow4.21 - 5.77 m/uLBON SECUZMA KETTERING HEALTH MAIN CAMPUSSegmented neutrophils/100 WBC (Bld)71 %High36 - 65 % BON SECCHILDREN'S HOSPITAL OF NEW ORLEANS HEALTHSegs Absolute7.79B[facility] HEALTHWBC (Bld) [#/Vol]10.9 10*3/uLBON SECOURS KETTER[facility]ALTH MAIN CAMPUSBON [facility] with Diff on 68-76-4290Mkj. Basophil<0.78Jvukhu5.00-0.20[facility] HospitalComment on above:Performed By: #### CMPX, CDP #### [facility] [address] [place] [address] [place] [address] Perinatal Coordinator: MDAbs. ShannonImm.Granulocyte0.06 k/uLNormal0.00-0.30[facility] HospitalComment on above:Performed By: #### CMPX, CDP #### [address] [place] [address] Perinatal Coordinator: Audra Ortega.Neutrophil (Seg)7.79 k/uLNormal1.50-8.10[facility] HospitalComment on above:Performed By: #### CMPX, CDP #### [address] [place], [place] [address] Perinatal Coordinator: Khadar Tang MDBasophils/100 WBC (Bld)0 %Normal0-2MSycamore Medical Center HospitalComment on above:Performed By: #### CMPX, CDP #### [address] [place] [address] Perinatal Coordinator: Khadar Tang MDEosinophils (Bld) [#/Vol]0.80 10*3/uLHigh0.00-0.44 [facility] HospitalComment on above:Performed By: #### CMPX, CDP #### [address] [place] [address] Perinatal Coordinator: Khadar Tang MDEosinophils/100 WBC (Bld)7 %High1-4G[facility] HospitalComment on above:Performed By: #### CMPX, CDP #### [facility] [address] [place] [address] [place] [address] Perinatal Coordinator: Khadar Tang MDErythrocyte distribution width (RBC) [Ratio]16.1 % High11.8-14.4[facility] HospitalComment on above:Performed By: #### CMPX, CDP #### [address] [place] [address] Perinatal Coordinator: Khadar Tang MDHematocrit (Bld) [Volume fraction]26.8 %Low 40.7-50.3MSycamore Medical Center HospitalComment on above:Performed By: #### CMPX, CDP #### [address] [place] [address] Perinatal Coordinator: Khadar Tang MDHemoglobin (Bld) [Mass/Vol]7.9 g/dLLow13.0-17.0 [facility] HospitalComment on above:Performed By: #### CMPX, CDP #### [address] [place], [place] [address] Perinatal Coordinator: Khadar Tang MDImmature granulocytes/100 WBC (Bld)1 %Bkcu5YwbijDayton Va Medical Center HospitalComment on above:Performed By: #### CMPX, CDP #### [address] [place] [address] Perinatal Coordinator: Khadar Tang MDLymphocytes (Bld) [#/Vol]1.38 10*3/uLNormal 1.10-3.70[facility] HospitalComment on above:Performed By: #### CMPX, CDP #### [address] [place] [address] Perinatal Coordinator: Khadar Tang MDLymphocytes/100 WBC (Bld)13 %Dsb04-42Uxdca Tiffin HospitalComment on above:Performed By: #### CMPX, CDP #### [address] [place], [place] [address]37083 Perinatal Coordinator: MORENO OrtegaCH (RBC) [Entitic mass]23.3 pgLow25.2-33.5G[facility] HospitalComment on above:Performed By: #### CMPX, CDP #### [address] [place] [address] Perinatal Coordinator: MORENO OrtegaCHC (RBC) [Mass/Vol]29.5 g/mRWkgscc51.4-34.8G[facility] HospitalComment on above:Performed By: #### CMPX, CDP #### [address] [place] [address] Perinatal Coordinator: MORENO OrtegaCV (RBC) [Entitic vol]79.1 fLLow82.6-102.9G[facility] HospitalComment on above:Performed By: #### CMPX, CDP #### [address] [place] [address] Perinatal Coordinator: MORENO Ortegaonocytes (Bld) [#/Vol]0.81 10*3/uLNormal0.10-1.20 [facility] HospitalComment on above:Performed By: #### CMPX, CDP #### [address] [place] [address] Perinatal Coordinator: MORENO Ortegaonocytes/100 WBC (Bld)8 %Normal3-12[facility] HospitalComment on above:Performed By: #### CMPX, CDP #### [address] [place] [address] Perinatal Coordinator: Khadar Tang MDNeutrophil (Seg)71 %Pjsa10-10OpzagGlenbeigh Hospital Comment on above:Performed By: #### CMPX, CDP #### [address] [place], [place] [address]183 Perinatal Coordinator: Khadar Tang MDNRBC Automated0.0 per 100 WBCNormal0.0[facility] Clarkedale HospitalComment on above:Performed By: #### CMPX, CDP #### [address] [place] [address] Perinatal Coordinator: Thiago Orteag mean volume (Bld) [Entitic vol]9.1 fL Normal8.1-13.5[facility] HospitalComment on above:Performed By: #### CMPX, CDP #### [address] [place] [address] Perinatal Coordinator: Laila Ortega (Bld) [#/Vol]241 10*3/sURiowvo647-349 [facility] HospitalComment on above:Performed By: #### CMPX, CDP #### [address] [place] [address] Perinatal Coordinator: CLEOPATRA Ortega (Bld) [#/Vol]3.39 10*6/uLLow4.21-5.77G[facility] HospitalComment on above:Performed By: #### CMPX, CDP #### [address] [place] [address] Perinatal Coordinator: KEO Ortega (Bld) [#/Vol]10.9 10*3/uLNormal3.5-11.3MSycamore Medical Center HospitalComment on above:Performed By: #### CMPX, CDP #### [address] [place] [address] Perinatal Coordinator: Med Ortega,Woundon [id number],WoundSpecimen Description .WOUND Special Requests LEG Direct Exam NO NEUTROPHILS SEEN NO ORGANISMS SEEN Culture NO GROWTH Report Status FINAL 06/27/2022NormalDayton Va Medical Center HospitalComment on above: Performed By: #### CMPX, CDP #### [address] [place] [address] Perinatal Coordinator: Khadar Tang, [facility] auto differentialon [id number] Eos # 0.63HighBON SECOURS CENTERVILLEY HEALTHAbsolute Immature Granulocyte0.05[facility] HEALTHAbsolute Lymph #1.33[facility] HEALTHAbsolute Spink #0.82[facility] HEALTHBasophils AbsoluteBON SECOURS MERCY HEALTHBasophils/100 WBC (Bld)0 %0 - 2 %[facility]ENTERVIL[facility] HEALTHEosinophils/100 WBC (Bld)7 %High1 - 4 % B[facility] CENTERVILLEY [facility] CITY HOSPITALHematocrit (Bld) [Volume fraction]24.4 %Low40.7 - 50.3 % [facility] CITY HOSPITALHemoglobin (Bld) [Mass/Vol]7.6 g/dLLow13.0 - 17.0 g/dL [facility] MAIN CAMPUSImmature granulocytes/100 WBC (Bld)1 %Cxpz0UBR SECOURS CENTERVILLEY HEALTHInterpretation and review of laboratory resultsAbnormalBON SECOURS KETTERING HEALTH MAIN CAMPUSLymphocytes/100 WBC (Bld)14 %Low24 - 43 %BON SECTRINITY HEALTH SYSTEM TWIN CITY MEDICAL CENTERH (RBC) [Entitic mass]23.8 pgLow25.2 - 33.5 pgBON SECOURS CLERMONT COUNTY HOSPITALHC (RBC) [Mass/Vol]31.1 g/dL28.4 - 34.8 g/dLBON SECTRINITY HEALTH SYSTEM TWIN CITY MEDICAL CENTERV (RBC) [Entitic vol]76.3 fLLow82.6 - 102.9 fLBON SECOURS CENTERVILLEY HEALTHMonocytes/100 WBC (Bld)9 %3 - 12 %[facility]ENTERVILLEY HEALTHNRBC Automated0.00.0 per 100 WBCBON SECOURS CENTERVILLEY HEALTHPlatelet distribution width (Bld) [Ratio]16.0 %High11.8 - 14.4 %[facility]CY HEALTHPlatelet mean volume (Bld) [Entitic vol]8.8 fL8.1 - 13.5 fL [facility] MERCY HEALTHPlatelets (Bld) [#/Vol]205 10*3/uLBON SECOURS CENTERVILLEY HEALTHRBC (Bld) [#/Vol]3.20 10*6/uLLow4.21 - 5.77 m/uLBON [place] Segmented neutrophils/100 WBC (Bld)69 %High36 - 65 %BON CENTERVILLESegs Absolute6.49BON CENTERVILLEWBC (Bld) [#/Vol]9.3 10*3/uLBON CENTERVILLEBON CENTERVILLECBC with Diffon [id number]. Basophil<0.03 Normal0.00-0.20[facility] HospitalComment on above:Performed By: #### CMPX, CDP #### [address] [place] [address] Perinatal Coordinator: Audra Ortega.Imm.Granulocyte0.05 k/uLNormal0.00-0.30[facility] HospitalComment on above:Performed By: #### CMPX, CDP #### [address] [place], [facility]83 Perinatal Coordinator: Audra Ortega.Neutrophil (Seg)6.49 k/uLNormal1.50-8.10[facility] HospitalComment on above:Performed By: #### CMPX, CDP #### [address] [place] [address] Perinatal Coordinator: Khadar Tang MDBasophils/100 WBC (Bld)0 %Normal0-2MSycamore Medical Center HospitalComment on above:Performed By: #### CMPX, CDP #### [address] [place] [address] Perinatal Coordinator: Khadar Tang MDEosinophils (Bld) [#/Vol]0.63 10*3/uLHigh0.00-0.44 [facility] HospitalComment on above:Performed By: #### CMPX, CDP #### [address] [place], [place] [address]83 Perinatal Coordinator: TOOTIE Ortegaosinophils/100 WBC (Bld)7 %High1-4[facility] HospitalComment on above:Performed By: #### CMPX, CDP #### [address] [place] [address] Perinatal Coordinator: Khadar Tang MDErythrocyte distribution width (RBC) [Ratio]16.0 % High11.8-14.4[facility] HospitalComment on above:Performed By: #### CMPX, CDP #### [address] [place], [facility]83 Perinatal Coordinator: Khadar Tang MDHematocrit (Bld) [Volume fraction]24.4 %Low 40.7-50.3[facility] Clarkedale HospitalComment on above:Performed By: #### CMPX, CDP #### [address] [place], [facility]83 Perinatal Coordinator: Khadar Tang MDHemoglobin (Bld) [Mass/Vol]7.6 g/dLLow13.0-17.0 [facility] HospitalComment on above:Performed By: #### CMPX, CDP #### [address] [place], [place] [address] Perinatal Coordinator: Khadar Tang MDImmature granulocytes/100 WBC (Bld)1 %Yayj6ZuozxDayton Va Medical Center HospitalComment on above:Performed By: #### CMPX, CDP #### [address] [place], [facility]83 Perinatal Coordinator: Khadar Tang MDLymphocytes (Bld) [#/Vol]1.33 10*3/uLNormal 1.10-3.70[facility] HospitalComment on above:Performed By: #### CMPX, CDP #### [address] [place] [address] Perinatal Coordinator: Kailyn Ortegamphocytes/100 WBC (Bld)14 %Lwy59-22CdrevGlenbeigh HospitalComment on above:Performed By: #### CMPX, CDP #### [address] [place], [place] [address]2383 Perinatal Coordinator: MORENO OrtegaCH (RBC) [Entitic mass]23.8 pgLow25.2-33.5[facility] HospitalComment on above:Performed By: #### CMPX, CDP #### [address] [place], [place] [address]6983 Perinatal Coordinator: MORENO OrtegaCHC (RBC) [Mass/Vol]31.1 g/zPZjyzys72.4-34.8G[facility] HospitalComment on above:Performed By: #### CMPX, CDP #### [address] [place], [place] [address]83 Perinatal Coordinator: MORENO OrtegaCV (RBC) [Entitic vol]76.3 fLLow82.6-102.9G[facility] HospitalComment on above:Performed By: #### CMPX, CDP #### [address] [place], [place] 3064583 Perinatal Coordinator: MORENO Ortegaonocytes (Bld) [#/Vol]0.82 10*3/uLNormal0.10-1.20 [facility] HospitalComment on above:Performed By: #### CMPX, CDP #### [address] [place], [place] 4050383 Perinatal Coordinator: MORENO Ortegaonocytes/100 WBC (Bld)9 %Normal3-12[facility] HospitalComment on above:Performed By: #### CMPX, CDP #### [address] [place], [place] [address]34383 Perinatal Coordinator: Khadar Tang MDNeutrophil (Seg)69 %Codc13-65DibyiGlenbeigh Hospital Comment on above:Performed By: #### CMPX, CDP #### [address] [place] [address] Perinatal Coordinator: SOLEDAD Ortega Automated0.0 per 100 WBCNormal0.0G[facility]igh HospitalComment on above:Performed By: #### CMPX, CDP #### [facility] [address] [place], [place] [address] Perinatal Coordinator: Thiago Ortega mean volume (Bld) [Entitic vol]8.8 fL Normal8.1-13.5G[facility] HospitalComment on above:Performed By: #### CMPX, CDP #### [address] [place], [place] 2339983 Perinatal Coordinator: Laila Ortega (Bld) [#/Vol]205 10*3/aKCwdkan676-114 [facility] HospitalComment on above:Performed By: #### CMPX, CDP #### [address] [place], [place] 1192083 Perinatal Coordinator: CLEOPATRA Ortega (Bld) [#/Vol]3.20 10*6/uLLow4.21-5.77G[facility] HospitalComment on above:Performed By: #### CMPX, CDP #### [address] [place], [place] 4323583 Perinatal Coordinator: KEO Ortega (Bld) [#/Vol]9.3 10*3/uLNormal3.5-11.3MParkwood HospitalComment on above:Performed By: #### CMPX, CDP #### [address] [place], [place] 5804783 Perinatal Coordinator: MYRON OrtegaG Rhythm Stripon [id number] HOSPITAL LABBON SECOURS [facility] HEALTH MAIN CAMPUSGlucose, Whole Bloodon [id number] [Mass/Vol]95 mg/dL74 - 100 mg/dLBON [facility] No Panel Informationon [id number] dictationMARY WASHINGTON H[facility] [employer] Work Phone: [facility] [employer] Work Phone: surgical Pathologyon [id number] Pathology (NOTE) -- Diagnosis -- POLYP, TRANSVERSE COLON, POLYPECTOMY:-FRAGMENTS OF TUBULAR ADENOMA. Jaz Kiran Electronically Signed Out ag/06/30/2022 Clinical Information Pre-Op Diagnosis: HYPERKALEMIA Operative Findings: TRANSVERSE COLON POLYP Operation Performed: COLORECTAL CANCER SCREENING, HIGH RISK; EGD cd Source of Specimen A: TRANSVERSE COLON POLYP Gross Description GANGA STINSON TRANSVERSE COLON POLYP Five pardo-white tissue fragments from 0.1 to 0.4 cm and are 0.8 x 0.4 x 0.1 cm in aggregate. Entirely 1cs. yr tm Microscopic Description Microscopic examination performed. SURGICAL PATHOLOGY CONSULTATION Patient Name: GANGA STINSON [facility] Rec: [id number] Path Number: [id number] [facility] ANATOMIC PATHOLOGY [address] [place] [address]. [place], [place] [address] NoOhioHealth Riverside Methodist HospitalComment on above:Performed By: #### CMPX, CDP #### [facility] [address] [place] [address] [place] [address] Perinatal Coordinator: Carlos Ortega occult stool #1on [id number], Stool #13 BON CENTERVILLEComment on above:30 23 Hemoglobin.gastrointestinal spec 1 Ql (Stl)NegativeNEGATIVEBON SENECA HOSPITALThe Good JobsTime, Stool #[id number] [facility] HOSPITALCBC auto differentialon [id number] Eos #0.63HighBON HONORHEALTH JOHN [facility]. LINCOL[facility] MEDICAL CENTERCrocodoc [facility] TribotekAbsolute Immature Granulocyte0.07BON [facility] CENTERCrocodoc [facility] TribotekAbsolute Lymph #1.63BON [facility] MEDICAL CENTERCrocodoc [place]LEThe Good JobsAbsolute Spink #0.76BON [facility] LIN[facility] MEDICAL CENTERCrocodoc MERCY HEALTHBasophils AbsoluteBON SECOURS [facility] HEALTHBasophils/100 WBC (Bld)0 %0 - 2 %BON [facility]CCHILDR[facility]ALTH Eosinophils/100 WBC (Bld)7 %High1 - 4 %BON [facility] HEALTHHematocrit (Bld) [Volume fraction]24.6 %Low40.7 - 50.3 %BON CENTERVILLEHemoglobin (Bld) [Mass/Vol]7.6 g/dLLow13.0 - 17.0 g/dLBON SECLAKE COUNTY MEMORIAL HOSPITAL - WESTImmature granulocytes/100 WBC (Bld)1 %Nhum7LLN [facility] HEALTHInterpretation and review of laboratory resultsAbnormalBON [facility]CLA[facility] WESTLymphocytes/100 WBC (Bld)19 %Low24 - 43 %BON [facility]ITALH (RBC) [Entitic mass]23.7 pgLow 25.2 - 33.5 pgBON [facility] CENTERHC (RBC) [Mass/Vol]30.9 g/dL28.4 - 34.8 g/dLBON [facility]CT[facility] CITY MEDICAL CENTERV (RBC) [Entitic vol]76.6 fLLow82.6 - 102.[address] [facility] WESTMonocytes/100 WBC (Bld)9 %3 - 12 %[facility] NRBC Automated0.00.0 per 100 WBCBON SECCHILDR[facility] HEALTHPlatelet distribution width (Bld) [Ratio]15.9 %High11.8 - 14.4 %BON [facility]CCHILDR[facility] HEALTHPlatelet mean volume (Bld) [Entitic vol]8.9 fL8.1 - 13.5 fLBON SECCHILDREN'S [facility]LE[facility] HEALTHPlatelets (Bld) [#/Vol]223 10*3/uLBON [facility] HEALTHRBC (Bld) [#/Vol]3.21 10*6/uLLow 4.21 - 5.77 m/uLBON CENTERVILLESegmented neutrophils/100 WBC (Bld)64 % 36 - 65 %BON [facility]CCHIL[facility] HEALTHSegs Absolute5.60BON [facility]IN CAMPUSWBC (Bld) [#/Vol]8.7 10*3/uLBON [facility] HEALTHBON [facility] HEALTHCBC with Diffon [id number]. Basophil<0.16Coxtkg1.00-0.20MerCleveland Clinic Akron General HospitalComment on above:Performed By: #### TROPI #### [address] [place], [place] [address] Perinatal Coordinator: Audra Ortega.Imm.Granulocyte0.07 k/uLNormal0.00-0.30[facility] HospitalComment on above:Performed By: #### TROPI #### [address] [place], [place] [address] Perinatal Coordinator: Audra Ortega.Neutrophil (Seg)5.60 k/uLNormal1.50-8.10[facility] HospitalComment on above:Performed By: #### TROPI #### [address] [place], [place] [address] Perinatal Coordinator: Khadar Tang MDBasophils/100 WBC (Bld)0 %Normal0-2MSycamore Medical Center HospitalComment on above:Performed By: #### TROPI #### [address] [place], [place] [address] Perinatal Coordinator: Khadar Tang MDEosinophils (Bld) [#/Vol]0.63 10*3/uLHigh0.00-0.44 [facility] HospitalComment on above:Performed By: #### TROPI #### [address] [place], [place] [address] Perinatal Coordinator: Khadar Tang MDEosinophils/100 WBC (Bld)7 %High1-4[facility] HospitalComment on above:Performed By: #### TROPI #### [address] [place], [facility]83 Perinatal Coordinator: Khadar Tang MDErythrocyte distribution width (RBC) [Ratio]15.9 % High11.8-14.4[facility]ed[facility] HospitalComment on above:Performed By: #### TROPI #### [address] [place], [place] [address] Perinatal Coordinator: Khadar Tang MDHematocrit (Bld) [Volume fraction]24.6 %Low 40.7-50.3[facility] Clarked[facility] HospitalComment on above:Performed By: #### TROPI #### [address] [place], [facility]83 Perinatal Coordinator: Khadar Tang MDHemoglobin (Bld) [Mass/Vol]7.6 g/dLLow13.0-17.0 [facility] HospitalComment on above:Performed By: #### TROPI #### [address] [place], [facility]83 Perinatal Coordinator: Seven Ortegamature granulocytes/100 WBC (Bld)1 %Zgdi9XkpjlDayton Va Medical Center HospitalComment on above:Performed By: #### TROPI #### [address] [place], [facility]83 Perinatal Coordinator: Kailyn Ortegamphocytes (Bld) [#/Vol]1.63 10*3/uLNormal 1.10-3.70[facility] HospitalComment on above:Performed By: #### TROPI #### [address] [place], [facility]83 Perinatal Coordinator: Kailyn Ortegamphocytes/100 WBC (Bld)19 %Lfd84-01Effix [facility]in HospitalComment on above:Performed By: #### TROPI #### [address] [place] [address] Perinatal Coordinator: MORENO OrtegaCH (RBC) [Entitic mass]23.7 pgLow25.2-33.5[facility] HospitalComment on above:Performed By: #### TROPI #### [address] [place] [address] Perinatal Coordinator: MORENO OrtegaCHC (RBC) [Mass/Vol]30.9 g/dAZhpkue12.4-34.8[facility] HospitalComment on above:Performed By: #### TROPI #### [address] [place], [place] [address]83 Perinatal Coordinator: MORENO OrtegaCV (RBC) [Entitic vol]76.6 fLLow82.6-102.9[facility] HospitalComment on above:Performed By: #### TROPI #### [address] [place], [place] [address]83 Perinatal Coordinator: MORENO Ortegaonocytes (Bld) [#/Vol]0.76 10*3/uLNormal0.10-1.20 [facility] HospitalComment on above:Performed By: #### TROPI #### [address] [place], [place] [address]183 Perinatal Coordinator: MORENO Ortegaonocytes/100 WBC (Bld)9 %Normal3-12[facility] HospitalComment on above:Performed By: #### TROPI #### [address] [place] [address] Perinatal Coordinator: Khadar Tang MDNeutrophil (Seg)64 %Macool51-09Hbbol [facility] HospitalComment on above:Performed By: #### TROPI #### [address] [place], [place] 456[address]83 Perinatal Coordinator: Khadar Tang MDNRBC Automated0.0 per 100 WBCNormal0.0[facility] HospitalComment on above:Performed By: #### TROPI #### [address] [place], [place] [address]24783 Perinatal Coordinator: Thiago Ortega mean volume (Bld) [Entitic vol]8.9 fL Normal8.1-13.5MerCleveland Clinic Akron General HospitalComment on above:Performed By: #### TROPI #### [address] [place], [place] [address]283 Perinatal Coordinator: Dewayne Ortegatesusan (Bld) [#/Vol]223 10*3/mYSmhqtz270-377 [facility] HospitalComment on above:Performed By: #### TROPI #### [address] [place] [address] Perinatal Coordinator: Khadar Tang MDRBC (Bld) [#/Vol]3.21 10*6/uLLow4.21-5.77[facility] HospitalComment on above:Performed By: #### TROPI #### [address] [place], [facility]83 Perinatal Coordinator: BERT OrtegaBC (Bld) [#/Vol]8.7 10*3/uLNormal3.5-11.3[facility] HospitalComment on above:Performed By: #### TROPI #### [address] [place] [address] Perinatal Coordinator: SALLY Ortegaomp Metabolic Pr/rfx MGon 82-52-5694Goqikdd [Mass/Vol]2.8 g/dLLow3.5-5.2[facility] HospitalComment on above:Performed By: #### TROPI #### [address] [place] [address] Perinatal Coordinator: Khadar Tang MDAlbumin/Glob Ratio0.7Low1.0-2.5MerCleveland Clinic Akron General HospitalComment on above:Performed By: #### TROPI #### [address] [place] [address] Perinatal Coordinator: Lisa Ortega Phos75 U/LIbqbeg98-725Ohxvv [facility] HospitalComment on above:Performed By: #### TROPI #### [address] [place], [place] [address]83 Perinatal Coordinator: Khadar Tang MDALT [Catalytic activity/Vol]9 U/LNormal5-41MerGreenwich HospitalComment on above:Performed By: #### TROPI #### [address] [place], [place] [address]374883 Perinatal Coordinator: Osvaldo Ortega gap [Moles/Vol]6 mmol/LLow9-17[facility] HospitalComment on above:Performed By: #### TROPI #### [address] [place], [facility]83 Perinatal Coordinator: Khadar Tang MDAST [Catalytic activity/Vol]10 U/LNormal<40MerCleveland Clinic [facility]ron General HospitalComment on above:Performed By: #### TROPI #### [address] [place], [facility]83 Perinatal Coordinator: Khadar Tang MDBilirubin [Mass/Vol]0.3 mg/dLNormal0.3-1.2[facility] HospitalComment on above:Performed By: #### TROPI #### [address] [place], [place] [address]83 Perinatal Coordinator: Khadar Tang MDBUN/CRE Pesum69Ppmbpe6-80Kyzqi [facility] Comment on above:Performed By: #### TROPI #### [address] [place], [place] [address]3683 Perinatal Coordinator: SALLY Ortegaalcium [Mass/Vol]8.7 mg/dLNormal8.6-10.4MerCleveland Clinic Akron General HospitalComment on above:Performed By: #### TROPI #### [address] [place] [address] Perinatal Coordinator: SALLY Ortegahloride [Moles/Vol]113 mmol/IHcls49-209FlcxiGlenbeigh HospitalComment on above:Performed By: #### TROPI #### [address] [place], [place] 8115383 Perinatal Coordinator: Khadar Tang MDCO2 [Moles/Vol]20 mmol/LOkrzqo78-82LgenhGlenbeigh HospitalComment on above:Performed By: #### TROPI #### [address] [place], [place] [address]183 Perinatal Coordinator: SALLY Ortegareatinine [Mass/Vol]0.97 mg/dLNormal0.70-1.20 [facility] HospitalComment on above:Performed By: #### TROPI #### [address] [place], [facility]83 Perinatal Coordinator: Khadar Tang MDGFR/1.73 sq M.predicted among non-blacks MDRD (S/P/Bld) [Vol rate/Area]mL/min/{1.73_m2}Normal>60[facility] HospitalComment on above:Result Comment: These results are not intended for [...] or following therapy that affects renal tubular secretion.Performed By: #### TROPI #### [address] [place] [address] Perinatal Coordinator: Khadar Tang MDGlucose [Mass/Vol]144 mg/yMThkn95-75PppmoParkwood HospitalComment on above:Performed By: #### TROPI #### [address] [place] [address] Perinatal Coordinator: LAWRENCE Ortegaotassium [Moles/Vol]4.5 mmol/LNormal3.7-5.3[facility] HospitalComment on above:Performed By: #### TROPI #### [address] [place], [place] [id number] Perinatal Coordinator: Khadar Tang MDProtein [Mass/Vol]6.7 g/dLNormal6.4-8.3[facility] HospitalComment on above:Performed By: #### TROPI #### [address] [place], [place] 225[address]83 Perinatal Coordinator: Khadar Tang MDSodium [Moles/Vol]139 mmol/XXabynn244-413Nxcrv [facility] HospitalComment on above:Performed By: #### TROPI #### [address] [place], [place] [address]83 Perinatal Coordinator: Khadar Tang MDUrea nitrogen [Mass/Vol]19 mg/dLNormal8-23[facility] HospitalComment on above:Performed By: #### TROPI #### [address] [place] [address] Perinatal Coordinator: SALLY Ortegaomprehensive Metabolic Panel w/ Reflex to MGon [id number] [Mass/Vol]2.8 g/dLLow3.5 - 5.2 g/dLBON [place] Albumin/Globulin [Mass ratio]0.7 {ratio}Low1.0 - 2.5BON CENTERVILLEALP [Catalytic activity/Vol]75 U/L40 - 129 U/LBON CENTERVILLEALT [Catalytic activity/Vol]9 U/L5 - 41 U/LBON CENTERVILLEAnion gap [Moles/Vol]6 mmol/LLow9 - 17 mmol/LBON CENTERVILLEAST [Catalytic activity/Vol]10 U/L NINF - 40 U/LBON CENTERVILLEBilirubin [Mass/Vol]0.3 mg/dL0.3 - 1.2 mg/dLBON CENTERVILLECalcium [Mass/Vol]8.7 mg/dL8.6 - 10.4 mg/dLBON CENTERVILLEChloride [Moles/Vol]113 mmol/LHigh98 - 107 mmol/LBON CENTERVILLECO2 [Moles/Vol]20 mmol/L20 - 31 mmol/LBON [place] Creatinine [Mass/Vol]0.97 mg/dL0.70 - 1.20 mg/dLBON CENTERVILLEGFR/1.73 sq M.predicted MDRD (S/P/Bld) [Vol rate/Area]- [facility]BB[facility] Comment on above: [...] therapy that affects renal tubular secretion. Glucose [Mass/Vol]144 mg/lHJvch35 - 99 mg/dLBON [place] Interpretation and review of laboratory resultsAbnormalB[facility] Potassium [Moles/Vol]4.5 mmol/L3.7 - 5.3 mmol/LBON CENTERVILLEProtein [Mass/Vol]6.7 g/dL6.4 - 8.3 g/dLBON CENTERVILLESodium [Moles/Vol]139 mmol/L135 - 144 mmol/LBON CENTERVILLEUrea nitrogen [Mass/Vol]19 mg/dL8 - 23 mg/dLBON CENTERVILLEUrea nitrogen/Creatinine (Bld) [Mass ratio]209 - 20BON CENTERVILLEBON CENTERVILLECult,Woundon 06-25-2022 Cult,WoundSpecimen Description .BUTTOCK Direct Exam FEW NEUTROPHILS MODERATE GRAM POSITIVE COCCI IN PAIRS MODERATE GRAM POSITIVE RODS Culture NORMAL SKIN ROBBIE Report Status FINAL 06/25/2022NoOhioHealth Riverside Methodist HospitalComment on above: Performed By: #### TROPI #### [facility] [address] [place], [place] [address] Perinatal Coordinator: FELIPE Ortega Rhythm Stripon [id number] HOSPITAL LABKINDRED HOSPITAL DAYTON LABGerman Hospital LABBON SECOURS DEPAUL MEDICAL CENTEROccult Blood, Fecalon 64-53-0530Mwupzk Blood 1NWilson [facility] Comment on above:Performed By: #### CMPX, CDP #### [facility] [address] [place], [place] [address] Perinatal Coordinator: Vance Ortegamaria parham healthgriselda [address] Comment on above:Result Comment: Performed By: #### CMPX, CDP #### [facility] [address] [place], [place] [address] Perinatal Coordinator: Kenny Ortega [address] [place] [address] Comment on above:Performed By: #### CMPX, CDP #### [address] [place] [address] Perinatal Coordinator: SAMMI Ortegaurgical Pathologyon [id number] Pathology (NOTE) -- Diagnosis -- RIGHT ANKLE, FIBULAR MALLEOLUS, BONE, EXCISION: - BENIGN BONE WITH HYPOCELLULAR AND FOCALLY FIBROTIC MARROW. - BENIGN PERIOSTEAL TISSUE WITH REACTIVE FIBROSIS. - NEGATIVE FOR OSTEOMYELITIS AND NEOPLASIA. Dilan Salvador M.D. Electronically Signed Out 06/29/2022 Clinical Information Operative Findings: FIBULAR MALLEOLUS, RIGHT ANKLE tm Source of Specimen A: FIBULAR MALLEOLUS,RIGHT ANKLE Gross Description DENG RODRIGUEZMILENATARUN Received in formalin is a 0.8 x 0.2 x 0.1 cm pardo, firm tissue fragment. Totally embedded 1c, decal. tm Microscopic Description Microscopic examination performed. SURGICAL PATHOLOGY CONSULTATION Patient Name: GANGA STINSON Med Rec: [id number] Path Number: [id number] [facility] PATHOLOGISTS [facility] PATH[facility]Y [address] [place] [address]. [place], [place] [address] NormalGlenbeigh HospitalComment on above:Performed By: #### LEIGHA, CDP #### [facility] [address] [place], [place] [address] Perinatal Coordinator: Khadar Tang MDTYPE AND SCREENon [id number]/RhNegativeBON [facility] TribotekArm Band [id number] [facility] Blood Product Expiration [id number] [facility] ISBT Product Blood [id number] [facility]bleHist[facility] Bank Unit Type and Rh NegativeBON CENTERVILLEERTH Technologiesood product type Nom (BPU)Leukocyte Reduced Red CellBON [facility] PrebleHistros product unit ID (Dose) [#][id number] CENTERVILLECrossmatch ResultCOMPATIBLEMARY WASHINGTON HOSPITAL TribotekDispense StatusTRANSFUSEDBON CENTERVILLEExpiration Date06/27/2022,2359BON CENTERVILLEProduct Code Blood [id number] WASHINGTON HOSPITAL Tribotek Transfusion StatusOK TO TRANSFUSEBON [facility] DEPA[facility] MEDICAL CENTERUnit [id number] [place]ENT[place]ILLEUnit Issue Date/[id number] [facility]IAL HOSPITALAPTTon 60-23-4922jZEB Coag (Bld) [Time]35.6 sHigh26.8-34.8 [facility] HospitalComment on above:Result Comment: IV Heparin Therapy Range: 62.0-94.0Performed By: #### LEIGHA, CDP #### [address] [place] [address] Perinatal Coordinator: Khadar Tang MDB12/Folate Panelon 48-50-8446Agtlanssd (Vitamin B12) [Mass/Vol]446 pg/wQUfasbj485-5059Spncg [facility] HospitalComment on above: Performed By: #### CMPX, CDP #### [facility] [address] [place] [address] Perinatal Coordinator: Apple Ortega Acid8.2 ng/mLNormal>4.8[facility] Comment on above:Performed By: #### CMPX, CDP #### [facility] [address] [place] [address] Perinatal Coordinator: Khadar Tang [facility] auto differentialon 25-56-3686Tqffgngn Eos # 0.46HighBON SECOURS DEPAUL MEDICAL CENTERAbsolute Immature Granulocyte0.07[facility] MEDICAL CENTERAbsolute Lymph #1.52[facility] MEDICAL CENTERAbsolute Spink #0.53BON [place]ENT[place]ILLEBasophils (Bld) [#/Vol]0.00 10*3/uLBON [place] Hematocrit (Bld) [Volume fraction]21.7 %Low40.7 - 50.3 %[facility] Hemoglobin (Bld) [Mass/Vol]6.6 g/dLCritically low13.0 - 17.0 g/dLBON CENTERVILLEInterpretation and review of laboratory resultsAbnormalBON GALION COMMUNITY HOSPITALH (RBC) [Entitic mass]23.4 pgLow25.2 - 33.5 pgSENTARA PRINCESS ANNE HOSPITALHC (RBC) [Mass/Vol]30.4 g/dL28.4 - 34.8 g/dLBON GALION COMMUNITY HOSPITALV (RBC) [Entitic vol]77.0 fLLow82.6 - 102.9 fLBON SECOURS DEPAUL MEDICAL CENTERMorphology Álvaro (Bld) [Interp]HYPOCHROMIA PRESENTBON SECOURS DEPAUL MEDICAL CENTERNRBC Automated0.0 0.0 per 100 WBCBON SECOURS DEPAUL MEDICAL CENTERPlatelet distribution width (Bld) [Ratio] 16.2 %High11.8 - 14.4 %BON CENTERVILLEPlatelet mean volume (Bld) [Entitic vol]8.9 fL8.1 - 13.5 fLBON SECOURS DEPAUL MEDICAL CENTERPlatelets (Bld) [#/Vol] 208 10*3/uLBON CENTERVILLERBC (Bld) [#/Vol]2.82 10*6/uLLow4.21 - 5.77 m/[facility] HealthcareSegmented neutrophils/100 WBC (Bld)61 %36 - 65 %BON SEC[facility] DEPAUL MEDICAL CENTERSegs Absolute4.02BON CENTERVILLEWBC (Bld) [#/Vol] 6.6 10*3/uLBON CANTON-INWOOD MEMORIAL HOSPITALCBC with Diffon [id number]. Basophil0.00 k/uLNormal0.0-0.2[facility]edale HospitalComment on above:Performed By: #### CMPX, CDP #### [address] [place] [address] Perinatal Coordinator: Audra Ortega.Imm.Granulocyte0.07 k/uLNormal0.00-0.30[facility] HospitalComment on above:Performed By: #### CMPX, CDP #### [address] [place], [place] [address] Perinatal Coordinator: Audra Ortega.Neutrophil (Seg)4.02 k/uLNormal1.50-8.10[facility] HospitalComment on above:Performed By: #### CMPX, CDP #### [address] [place], [place] [address] Perinatal Coordinator: Khadar Tang MDEosinophils (Bld) [#/Vol]0.46 10*3/uLHigh0.00-0.44 [facility] HospitalComment on above:Performed By: #### CMPX, CDP #### [address] [place] [address] Perinatal Coordinator: Khadar Tang MDLymphocytes (Bld) [#/Vol]1.52 10*3/uLNormal 1.10-3.70[facility] HospitalComment on above:Performed By: #### CMPX, CDP #### [address] [place] [address] Perinatal Coordinator: MORENO Ortegaonocytes (Bld) [#/Vol]0.53 10*3/uLNormal0.10-1.20 [facility] HospitalComment on above:Performed By: #### CMPX, CDP #### [address] [place], [place] [address]83 Perinatal Coordinator: MORENO Ortegaorphology Álvaro (Bld) [Interp]HYPOCHROMIANormal [facility] HospitalComment on above:Result Comment: PRESENTPerformed By: #### CMPX, CDP #### [address] [place] [address] Perinatal Coordinator: Khadar Tang MDNeutrophil (Seg)61 %Uxltet01-52Feesh Clarkedale HospitalComment on above:Performed By: #### CMPX, CDP #### [address] [place], [place] 1129983 Perinatal Coordinator: Khadar Tang MDErythrocyte distribution width (RBC) [Ratio]16.2 % High11.8-14.4Mer[facility] Clarkedale HospitalComment on above:Performed By: #### CMPX, CDP #### [address] [place], [place] [address]300683 Perinatal Coordinator: Khadar Tang MDHematocrit (Bld) [Volume fraction]21.7 %Low 40.7-50.3Mer[facility] Clarkedale HospitalComment on above:Performed By: #### CMPX, CDP #### [address] [place], [place] [address]83 Perinatal Coordinator: Khadar Tang MDHemoglobin (Bld) [Mass/Vol]6.6 g/dLCritically low 13.0-17.0MerCleveland Clinic Akron General HospitalComment on above:Performed By: #### CMPX, CDP #### [address] [place], [place] [address]77383 Perinatal Coordinator: PEEWEE Ortega (RBC) [Entitic mass]23.4 pgLow25.2-33.5[facility] HospitalComment on above:Performed By: #### CMPX, CDP #### [address] [place], [place] 3809283 Perinatal Coordinator: PEEWEE OrtegaC (RBC) [Mass/Vol]30.4 g/bZGnfncz96.4-34.8[facility] HospitalComment on above:Performed By: #### CMPX, CDP #### [address] [place] [address] Perinatal Coordinator: MANOHAR Ortega (RBC) [Entitic vol]77.0 fLLow82.6-102.9[facility] HospitalComment on above:Performed By: #### CMPX, CDP #### [address] [place], [place] [address]89383 Perinatal Coordinator: SOLEDAD Ortega Automated0.0 per 100 WBCNormal0.0G[facility] HospitalComment on above:Performed By: #### CMPX, CDP #### [address] [place], [place] [address]17483 Perinatal Coordinator: Thiago Ortega mean volume (Bld) [Entitic vol]8.9 fL Normal8.1-13.5G[facility] HospitalComment on above:Performed By: #### CMPX, CDP #### [address] [place] [address] Perinatal Coordinator: Dewayne Ortegatesusan (Bld) [#/Vol]208 10*3/kVQgexms269-483 [facility] HospitalComment on above:Performed By: #### CMPX, CDP #### [facility] [address] [place] [address] Perinatal Coordinator: VIKY OrtegaBC (Bld) [#/Vol]2.82 10*6/uLLow4.21-5.77[facility] Institute Of LivingComment on above:Performed By: #### CMPX, CDP #### [address] [place] [address] Perinatal Coordinator: BERT OrtegaBC (Bld) [#/Vol]6.6 10*3/uLNormal3.5-11.3[facility] Institute Of LivingComment on above:Performed By: #### CMPX, CDP #### [address] [place], [place] [address]646283 Perinatal Coordinator: Khadar Tang MDBasophils/100 WBC (Bld)0 %Normal0-2BON [facility] on above:Performed By: #### CMPX, CDP #### [address] [place], [place] [address]36383 Perinatal Coordinator: Khadar Tang MDEosinophils/100 WBC (Bld)7 %High1-4BON [facility] on above:Performed By: #### CMPX, CDP #### [address] [place] [address] Perinatal Coordinator: Seven Ortegamature granulocytes/100 WBC (Bld)1 %Bcwt3FDO [facility] on above:Performed By: #### CMPX, CDP #### [address] [place], [place] 3965083 Perinatal Coordinator: Khadar Tang MDLymphocytes/100 WBC (Bld)23 %Fqk72-70KMF CENTERVILLEComup health system on above:Performed By: #### CMPX, CDP #### [address] [place], [place] [address]83 Perinatal Coordinator: Khadar Tang, MDMonocytes/100 WBC (Bld)8 %Normal3-12BON [facility] - WESTComment on above:Performed By: #### CMPX, CDP #### [address] [place], [place] [address]608283 Perinatal Coordinator: SALLY Ortegaomp Metabolic Pr/rfx MGon 61-59-0970Ampggrf [Mass/Vol]2.4 g/dLLow3.5-5.2MercHartford HospitalComment on above:Performed By: #### CMPX, CDP #### [address] [place], [place] [address]334383 Perinatal Coordinator: Khadar Tang MDAlbumin/Glob Ratio0.6Low1.0-2.5G[facility] HospitalComment on above:Performed By: #### CMPX, CDP #### [address] [place], [place] 4645283 Perinatal Coordinator: Juan Ortegakaline Phos75 U/KLoqmzj55-236LzwabGlenbeigh HospitalComup health system on above:Performed By: #### CMPX, CDP #### [address] [place] [address] Perinatal Coordinator: Khadar Tang MDALT [Catalytic activity/Vol]9 U/LNormal5-41Glenbeigh HospitalComup health system on above:Performed By: #### CMPX, CDP #### [address] [place] [address] Perinatal Coordinator: Khadar Tang MDAnion gap [Moles/Vol]7 mmol/LLow9-17G[facility]igh HospitalComup health system on above:Performed By: #### CMPX, CDP #### [address] [place], [place] [address]283 Perinatal Coordinator: Khadar Sturtz, MDAST [Catalytic activity/Vol]11 U/LNormal<40[facility] HospitalComment on above:Performed By: #### CMPX, CDP #### [facility] [address] [place] [address] Dr. [place], [place] 7394683 Perinatal Coordinator: Khadar Tang MDBilirubin [Mass/Vol]mg/dLLow0.3-1.2MSycamore Medical Center HospitalComment on above:Performed By: #### CMPX, CDP #### [facility] [address] [place] [address] [place] [place] [address] Perinatal Coordinator: Khadar Tang MDBUN/CRE [id number] Hospital Comment on above:Performed By: #### CMPX, CDP #### [address] [place], [place] [id number] Perinatal Coordinator: SALLY Ortegaalcium [Mass/Vol]8.5 mg/dLLow8.6-10.4Glenbeigh HospitalComment on above:Performed By: #### CMPX, CDP #### [address] [place] [address] Perinatal Coordinator: SALLY Ortegahloride [Moles/Vol]115 mmol/AViwh93-731DrletGlenbeigh HospitalComment on above:Performed By: #### CMPX, CDP #### [address] [place] [address] [place] [address] Perinatal Coordinator: Khadar Tang MDCO2 [Moles/Vol]18 mmol/GDge08-63Ylncr [facility] HospitalComment on above:Performed By: #### CMPX, CDP #### [address] [place] [address] [place] [address] Perinatal Coordinator: SALLY Ortegareatinine [Mass/Vol]1.11 mg/dLNormal0.70-1.20 [facility] HospitalComment on above:Performed By: #### CMPX, CDP #### [address] [place] [address] [place] [address] Perinatal Coordinator: Khadar Tang MDGFR/1.73 sq M.predicted among non-blacks MDRD (S/P/Bld) [Vol rate/Area]mL/min/{1.73_m2}Normal>60[facility] HospitalComment on above:Result Comment: These results are not intended for [...] or following therapy that affects renal tubular secretion.Performed By: #### CMPX, CDP #### [address] [place] [address] [place] [address] Perinatal Coordinator: Khadar Tang MDGlucose [Mass/Vol]137 mg/xZTeaf60-50Xqzoa Clarkedale HospitalComment on above:Performed By: #### CMPX, CDP #### [address] [place] [address] [place] [address] Perinatal Coordinator: LAWRENCE Ortegaotassium [Moles/Vol]4.9 mmol/LNormal3.7-5.3[facility] Clarked[facility] HospitalComment on above:Performed By: #### CMPX, CDP #### [address] [place], [place] [address] Perinatal Coordinator: Khadar Tang MDProtein [Mass/Vol]6.3 g/dLLow6.4-8.3Mer[facility] Clarkedale HospitalComment on above:Performed By: #### CMPX, CDP #### [address] [place] [address] Perinatal Coordinator: Khadar Tang MDSodium [Moles/Vol]140 mmol/AMlgxaa482-308Lzqfh Clarkedale HospitalComment on above:Performed By: #### CMPX, CDP #### [facility] [address] [place], [place] [address] Perinatal Coordinator: Khadar Tang MDUrea nitrogen [Mass/Vol]26 mg/dLHigh8-23Glenbeigh HospitalComment on above:Performed By: #### LEIGHA CDP #### [facility] [address] [place], [place] [address] Perinatal Coordinator: SALLY Ortegaomprehensive Metabolic Panel w/ Reflex to MGon 96-71-9384Jeinbem [Mass/Vol]2.4 g/dLLow3.5 - 5.2 g/dLBON [place] Albumin/Globulin [Mass ratio]0.6 {ratio}Low1.0 - 2.5BON CENTERVILLEALP [Catalytic activity/Vol]75 U/L40 - 129 U/LBON [place]ENT[place]ILLEALT [Catalytic activity/Vol]9 U/L5 - 41 U/LBON [place]LEAnion gap [Moles/Vol]7 mmol/LLow9 - 17 mmol/LBON CENTERVILLEAST [Catalytic activity/Vol]11 U/L NINF - 40 U/LBON [place]LEBilirubin [Mass/Vol]mg/dLLow0.3 - 1.2 mg/dL BON [place]LECalcium [Mass/Vol]8.5 mg/dLLow8.6 - 10.4 mg/dLBON CENTERVILLEChloride [Moles/Vol]115 mmol/LHigh98 - 107 mmol/LBON [place]ENT[place]ILLECO2 [Moles/Vol]18 mmol/LLow20 - 31 mmol/LBON [place] Creatinine [Mass/Vol]1.11 mg/dL0.70 - 1.20 mg/dLBON CENTERVILLEGFR/1.73 sq M.predicted MDRD (S/P/Bld) [Vol rate/Area]- PINFBON [place] Comment on above: These results are not [...] therapy that affects renal tubular secretion. Glucose [Mass/Vol]137 mg/lBAuty80 - 99 mg/dLBON [facility]ICAL CENTERCrocodoc CENTERVILLEThe Good Jobs Interpretation and review of laboratory resultsAbnormalFALL RIVER HOSPITALCrocodoc [facility] [employer]otek Potassium [Moles/Vol]4.9 mmol/L3.7 - 5.3 mmol/LBON [facility] HEALTHProtein [Mass/Vol]6.3 g/dLLow6.4 - 8.3 g/dLBON CENTERVILLESodium [Moles/Vol]140 mmol/L135 - 144 mmol/LBON [facility] TribotekUrea nitrogen [Mass/Vol]26 mg/dL High8 - 23 mg/dLBON [facility] TribotekUrea nitrogen/Creatinine (Bld) [Mass ratio]19Gsoq5 - 20BON [facility] HOSPITALCulture, Wound Aerobic Onlyon 23-12-8696Wlekiebuvxbhka and review of laboratory resultsAbnormal BON [place]ENT[place]ILLEMicroorganism identified Cx Nom (Unsp spec)NORMAL SKIN FLORABON [facility] TribotekMicroorganism or agent identified Nom (Unsp spec) FEW NEUTROPHILSAbnormalFALL RIVER HOSPITALCrocodoc [facility]IN CAMPUSSpecimen Description.BUTTOCKBON CUMBERLAND HOSPITALSmallRiversEKG 12 Leadon 45-19-7238Apyskz Rate 64BPMBON HONORHE[facility] LIN[facility]ICAL CENTERCrocodoc CENTERVILLEThe Good Jobs Work Phone: p [id number] SECCrocodoc CENTERVILLEThe Good Jobs Work Phone: p-R [id number] [facility] CenterSmallRivers Work Phone: Q-T Lybilnsq464 [facility] CenterSmallRivers Work Phone: QRS [id number] [facility] CenterSmallRivers Work Phone: QTc Calculation (Constantino)[phone] [facility] CenterSmallRivers Work Phone: r [id number] SECCrocodoc CENTERVILLEThe Good Jobs Work Phone: T [id number] SECOURS MERCTrialScope Phone: Ventricular Ffpj48JTNUORCOMMUNITY HEALTH SYSTEMS [employer] Phone: Normal sinus rhythm Inferior infarct , age undetermined Abnormal ECG When compared with ECG of 22-JUN-2022 17:28, Minimal criteria for Inferior infarct is now Present Confirmed by Michelle Noe MD ([id number]) on 06/24/2022 10:31:37 [facility]PO[facility] Michelle Noe MD - 06/24/2022 Normal sinus rhythm Inferior infarct , age undetermined Abnormal ECG When compared with ECG of 22-JUN-2022 17:28, Minimal criteria for Inferior infarct is now Present Confirmed by Michelle Noe MD ([id number]) on 06/24/2022 10:31:37 PM [facility] [employer] Phone: bON [facility] [employer] Phone: eKG Rhythm Stripon 62-76-7038GEHMZCEDAR [facility] Echocardiogram complete 2D with doppler with coloron 02-16-7919Jpld ventricular Ejection [id number] [place] [address] [employer] Phone: lVEF MODALITYECHRUSSELL COUNTY [facility] Workstir Phone: [facility] Transthoracic Echocardiography Report (TTE) Patient Name ALLOWAY Date of Study 06/24/2022 GANGA Cristina Date of 1960 Gender Male Age 61 year(s) Race Room Number 0334 Height: 71 inch, 180.34 cm Corporate ID [id number] Weight: 252 pounds, 114.3 kg # Patient Acct [id number] BSA: 2.33 m^2 BMI: 35.15 kg/m^2 # MR # [id number] Shaft Mechanic TriciaJeanette sullivan Interpreting Physician Michelle Noe Fellow Referring Nurse Shelly Mondragon, Practitioner PASTE UP ARTIST APPRENTICE Interpreting Referring Physician Fellow Type of Study TTE procedure:2D Echocardiogram, M-Mode, Doppler, Color Doppler. Procedure Date Date: 06/24/2022 Start: 09:47 AM Study Location: [facility] Indications:Abnormal ECG. History / Tech. Comments: [...] Lateral Wall E' velocity:0.13 m/s Lateral Wall E/E':9.8MH LVEFMichelle Noe MD / Result, Unknown Provider - 06/24/2022 [facility] Transthoracic Echocardiography Report (TTE) Patient Name ALLOWAY Date of Study 06/24/2022 GANGA Evans Date of 1960 Gender Male Age 61 year(s) Race Room Number 0334 Height: 71 inch, 180.34 cm Corporate ID [id number] Weight: 252 pounds, 114.3 kg # Patient Acct [id number] BSA: 2.33 m^2 BMI: 35.15 kg/m^2 # MR # [id number] Shaft Mechanic Jeanette Clarke Interpreting Physician Michelle Noe Fellow Referring Nurse Shelly Mondragon, Practitioner DOLLY Interpreting Referring Physician Fellow Type of Study TTE procedure:2D Echocardiogram, M-Mode, Doppler, Color Doppler. Procedure Date Date: 06/24/2022 Start: 09:47 AM Study Location: [facility] Indications:Abnormal ECG. History / Tech. Comments: [...] velocity:0.13 m/s Lateral Wall E/E':9.8 [facility] Work Phone: bON [place] Work Phone: Glucose, Whole Bloodon 78-80-0106Kkxeitq [Mass/Vol]114 mg/fAQdwu46 - 100 mg/dLBON CENTERVILLEInterpretation and review of laboratory resultsAbCoteau des Prairies Hospital Hemoglobin and Hematocriton 65-61-0779Azrkeiypeg (Bld) [Volume fraction]25.1 % Low40.7 - 50.3 %[facility]ICAL CENTERHemoglobin (Bld) [Mass/Vol]7.8 g/dLLow 13.0 - 17.0 g/dLBON CENTERVILLEInterpretation and review of laboratory resultsAbCoteau des Prairies HospitalHgb/Hcton 94-57-0540Ghvysbbdcx (Bld) [Volume fraction]25.1 %Low40.7-50.3[facility] Institute Of LivingComment on above:Performed By: #### LEIGHA, CDP #### [facility] [address] [place] [address] [place] [address] Perinatal Coordinator: Khadar Tang MDHemoglobin (Bld) [Mass/Vol]7.8 g/dLLow13.0-17.0 [facility] HospitalComment on above:Performed By: #### LEIGHA, CDP #### [facility] [address] [place] [address] [address]. [place], [place] [id number] Perinatal Coordinator: Alex Ortega Binding Cap.on 06-24-2022% Fe Lhudynuabw08 % Aml02-74OkbqiGlenbeigh HospitalComment on above:Performed By: #### CMPX, CDP #### [address] [place], [place] [id number] Perinatal Coordinator: Alex Ortega [Mass/Vol]33 ug/bLCbb11-168OeykoGlenbeigh HospitalComment on above:Performed By: #### CMPX, CDP #### [address] [place], [place] [address]83 Perinatal Coordinator: Rebekah Ortegatal Fe Binding Xcq856 ug/pIVeh799-631IezksGlenbeigh HospitalComment on above:Performed By: #### CMPX, CDP #### [address] [place], [place] [address] Perinatal Coordinator: Khadar Tang MDUnbound Fe Bind Ecu056 ug/nDLomher204-341NfxoxGlenbeigh HospitalComment on above:Performed By: #### CMPX, CDP #### [address] [place], [place] [id number] Perinatal Coordinator: Alex Ortega and Kimberley 65-09-1353Vajjishiaosvua and review of laboratory resultsAbnormalBON [facility] Hospitaln [Mass/Vol]33 ug/dLLow59 - 158 ug/dLBON [facility] Hill[facility]st Hospitaln binding capacity [Mass/Vol] 175 ug/vRVff172 - 450 ug/dLBON [facility] Hill[facility]st Hospitaln Exyekhcaoz25 %Low20 - 55 %BON CENTERVILLEUIBC142 ug/dL112 - 347 ug/dLBON [place] BON CENTERVILLELaboratory - Microbiology and Antimicrobial susceptibilityon 30-58-4304Phipntdoupcdi or agent identified Nom (Unsp spec) PositiveAbnormalBON SECOURS DEPAUL MEDICAL CENTERLipid Panelon 35-09-0887Eniyvmjaipn [Mass/Vol]147 mg/dLNINF - 200 mg/dLBON CENTERVILLEComment on above: Cholesterol Guidelines: <200 Desirable 200-240 Borderline >240 Undesirable Cholesterol in HDL [Mass/Vol]28 mg/dLLow40 - PINF mg/dLBBON [facility] Comment on above: HDL Guidelines: <40 Undesirable 40-59 Borderline >59 Desirable Cholesterol in LDL [Mass/Vol]98 mg/dL0 - 130 mg/dLBON [place] Comment on above: LDL Guidelines: <100 Desirable 100-129 Near to/above Desirable 130-159 Borderline >159 Undesirable Direct (measured) LDL and calculated LDL are not interchangeable tests. Cholesterol.total/Cholesterol in HDL [Mass ratio]5.3 {ratio}HighNINF - 5BON [place]ENTERVILLEInterpretation and review of laboratory resultsAbnoCarilion Roanoke Community HospitalTriglyceride [Mass/Vol]107 mg/dLNINF - 150 mg/dLBON CENTERVILLEComment on above: Triglyceride Guidelines: <150 Desirable 150-199 Borderline 200-499 High >499 Very high Based on AHA Guidelines for fasting triglyceride, December 2011. [facility] CENTERLipid Profileon 76-25-2722Reyllwyrgjg [Mass/Vol]147 mg/dLNormal<200MerGreenwich HospitalComment on above:Result Comment: Cholesterol Guidelines: <200 Desirable 200-240 Borderline >240 UndesirablePerformed By: #### TROPI #### [facility] [address] [place] [address] [place] [address] Perinatal Coordinator: SALLY Ortegaholesterol in HDL [Mass/Vol]28 mg/dLLow>40[facility] Institute Of LivingComment on above:Result Comment: HDL Guidelines: <40 Undesirable 40-59 Borderline >59 DesirablePerformed By: #### TROPI #### [facility] [address] [place] [address] [place] [address] Perinatal Coordinator: SALLY Ortegaholesterol in LDL [Mass/Vol]98 mg/dLNormal0-130 [facility] HospitalComment on above:Result Comment: LDL Guidelines: <100 Desirable 100-129 Near to/above Desirable 130-159 Borderline >159 Undesirable Direct (measured) LDL and calculated LDL are not interchangeable tests.Performed By: #### TROPI #### [address] [place] [address] Perinatal Coordinator: SALLY Ortegaholesterol.total/Cholesterol in HDL [Mass ratio] 5.3 {ratio}High<5[facility] HospitalComment on above:Performed By: #### TROPI #### [address] [place] [address] Perinatal Coordinator: Khadar Tang MDTriglyceride [Mass/Vol]107 mg/dLNormal<150G[facility] HospitalComment on above:Result Comment: Triglyceride Guidelines: <150 Desirable 150-199 Borderline 200-499 High >499 Very high Based on AHA Guidelines for fasting triglyceride, December 2011.Performed By: #### TROPI #### [address] [place] [address] Perinatal Coordinator: Suzanne Ortega 70-64-9269VLU Coag (PPP) [Relative time]1.1 {INR}NormalMercy Health St. [facility] on above:Result Comment: Therapeutic Range: Moderate Anticoagulant Intensity: INR = 2.0-3.0 High Anticoagulant Intensity: INR = 2.5-3.5Performed By: #### LORETOX, CDP #### [address] [place] [address] Perinatal Coordinator: YESSENIA Ortega Coag (PPP) [Time]14.8 uAfotpb47.9-14.8Memorial Health Systemment on above:Performed By: #### LORETOX, CDP #### [address] [place] [address] Perinatal Coordinator: Sherif Ortega 84-81-0783tCUN Coag (Bld) [Time]35.6 [facility] on above: IV Heparin Therapy Range: 62.0-94.0 Interpretation and review of laboratory resultsAbnormalBATH COMMUNITY HOSPITALProtime-INRon 58-83-2951KEO Coag (PPP) [Relative time] 1.1 {INR}[facility] on above: Therapeutic Range: Moderate Anticoagulant Intensity: INR = 2.0-3.0 High Anticoagulant Intensity: INR = 2.5-3.5 PT Coag (PPP) [Time]14.8 sBON [facility] Troponinon 24-63-2327Uxfevllc, High Sens57 ng/LCritically high0-22[facility] Of LivingComup health system on above:Result Comment: High Sensitivity Troponin values cannot be compared with other Troponin methodologies.Performed By: #### CMPX, CDP #### [facility] [address] [place] [address] [place] [address] Perinatal Coordinator: Khadar Tang MDInterpretation and review of laboratory results Centra Healthnin I.cardiac DL <= 0.01 ng/mL [Mass/Vol]57 ng/LCritically high0 - 22 ng/LBSentara [facility] on above:High Sensitivity Troponin values cannot be compared with other Troponin methodologies.[facility] Hospitaloponin, High Sens58 ng/LCritically high 0-22[facility] on above:Result Comment: High Sensitivity Troponin values cannot be compared with other Troponin methodologies.Performed By: #### TROPI #### [facility] [address] [place] [address] [place] [address] Perinatal Coordinator: Khadar Tang MDInterpretation and review of laboratory results AbnormalLifePoint Healthnin I.cardiac DL <= 0.01 ng/mL [Mass/Vol]58 ng/LCritically high0 - 22 ng/LBON [facility] on above:High Sensitivity Troponin values cannot be compared with other Troponin methodologies.[facility] CENTERTroponin, High Sens59 ng/LCritically high 0-22[facility] Of LivingComup health system on above:Result Comment: High Sensitivity Troponin values cannot be compared with other Troponin methodologies.Performed By: #### CMPX, CDP #### [facility] [address] [place] [address] [place] [address] Perinatal Coordinator: Khadar Tang MDInterpretation and review of laboratory results AbnormalBON CENTERVILLETroponin I.cardiac DL <= 0.01 ng/mL [Mass/Vol]59 ng/LCritically high0 - 22 ng/LBON [place]ILLEComment on above:High Sensitivity Troponin values cannot be compared with other Troponin methodologies.[facility] CENTERType + Screenon 50-61-9914Xzfo + Screen Sample Expiration 06/27/2022,2359 Arm Band Number [id number] ABO/Rh(D) A NEGATIVE Antibody Screen NEGATIVE Unit Number [id number] Blood Component Type Leukocyte Reduced Red Cell Unit Division 00 Status of Unit TRANSFUSED Transfusion Status OK TO TRANSFUSE Crossmatch Result COMPATIBLENormalGlenbeigh HospitalComment on above: Performed By: #### LORETOX, CDP #### [facility] [address] [place] [address] [place] [address] Perinatal Coordinator: Khadar Tang MDVitamin B12 & Folateon 59-33-9307Qguxwyfsm (Vitamin B12) [Mass/Vol]446 pg/mL232 - 1245 pg/mLBON SECOURS DEPAUL MEDICAL CENTERFolate [Mass/Vol]8.2 ng/mL4.8 - PINF ng/mLBON CENTERVILLEBON CENTERVILLECBC auto differentialon 94-96-2872Exanklwz Eos #0.65HighBON CENTERVILLEAbsolute Immature Granulocyte0.06B[facility]RS [facility] HEALTHAbsolute Lymph # 1.94B[facility] HEALTHAbsolute Spink #0.72[facility]IN CAMPUSBasophils (Bld) [#/Vol]0.04 10*3/uLBON [facility]RS [facility] CAMPUSBasophils/100 WBC (Bld)0 %0 - 2 %DIGN[facility] SECLAKE COUNTY MEMORIAL [facility]PITAL - WESTEosinophils/100 WBC (Bld)7 %High1 - 4 %[facility] CENTERHematocrit (Bld) [Volume fraction]25.0 %Low40.7 - 50.3 %[facility] MEDICAL CENTERHemoglobin (Bld) [Mass/Vol]7.5 g/dLLow13.0 - 17.0 g/dLBON CENTERVILLEImmature granulocytes/100 WBC (Bld)1 %Wgyu4UEP [place] Interpretation and review of laboratory resultsAbnormalBON [place] Lymphocytes/100 WBC (Bld)22 %Low24 - 43 %[facility] HOSPITALH (RBC) [Entitic mass]23.3 pgLow25.2 - 33.5 pgBON [facility] COMM[facility]ITY HOSPITALHC (RBC) [Mass/Vol]30.0 g/dL28.4 - 34.8 g/dLBON GALION COMMUNITY HOSPITALV (RBC) [Entitic vol]77.6 fLLow82.6 - 102.9 fLBON SECOURS DEPAUL MEDICAL CENTERMonocytes/100 WBC (Bld)8 %3 - 12 %[facility] MEDICAL CENTERNRBC Automated0.00.0 per 100 WBCBON SECOURS DEPAUL MEDICAL CENTERPlatelet distribution width (Bld) [Ratio]16.4 %High11.8 - 14.4 %[facility] MEDICAL CENTERPlatelet mean volume (Bld) [Entitic vol]8.7 fL8.1 - 13.5 fL [facility] MEDICAL CENTERPlatelets (Bld) [#/Vol]263 10*3/uLBON SECOURS DEPAUL MEDICAL CENTERRBC (Bld) [#/Vol]3.22 10*6/uLLow4.21 - 5.77 m/[facility] Segmented neutrophils/100 WBC (Bld)62 %36 - 65 %[facility]ICAL CENTERSegs Absolute5.55BON [place]ENT[place]ILLEWBC (Bld) [#/Vol]9.0 10*3/uLBON [facility] HOSPITALCBC with Diffon 37-54-8939Ecr. Basophil0.04 k/uLNormal0.00-0.20[facility] HospitalComment on above:Performed By: #### CMPX, CDP #### [facility] [address] [place] [address] Perinatal Coordinator: Audra Otrega.Imm.Granulocyte0.06 k/uLNormal0.00-0.30[facility] HospitalComment on above:Performed By: #### CMPX, CDP #### [address] [place] [address] Perinatal Coordinator: Audra Ortega.Neutrophil (Seg)5.55 k/uLNormal1.50-8.10[facility] HospitalComment on above:Performed By: #### CMPX, CDP #### [address] [place] [address] Perinatal Coordinator: Khadra Tang MDBasophils/100 WBC (Bld)0 %Normal0-2MSycamore Medical Center HospitalComment on above:Performed By: #### CMPX, CDP #### [address] [place] [address] Perinatal Coordinator: Khadar Tang MDEosinophils (Bld) [#/Vol]0.65 10*3/uLHigh0.00-0.44 [facility] HospitalComup health system on above:Performed By: #### CMPX, CDP #### [address] [place] [address] Perinatal Coordinator: TOOTIE Ortegaosinophils/100 WBC (Bld)7 %High1-4[facility] HospitalComment on above:Performed By: #### CMPX, CDP #### [address] [place] [address] Perinatal Coordinator: Khadar Tang MDErythrocyte distribution width (RBC) [Ratio]16.4 % High11.8-14.4[facility] HospitalComment on above:Performed By: #### CMPX, CDP #### [address] [place], [place] [address] Perinatal Coordinator: Khadar Tang MDHematocrit (Bld) [Volume fraction]25.0 %Low 40.7-50.3[facility] HospitalComment on above:Performed By: #### CMPX, CDP #### [address] [place] [address] Perinatal Coordinator: Khadar Tang MDHemoglobin (Bld) [Mass/Vol]7.5 g/dLLow13.0-17.0 [facility] HospitalComment on above:Performed By: #### CMPX, CDP #### [address] [place] [address] Perinatal Coordinator: Khadar Tang MDImmature granulocytes/100 WBC (Bld)1 %Cgmy3Yebsf [facility]iffin HospitalComment on above:Performed By: #### CMPX, CDP #### [address] [place], [place] [address] Perinatal Coordinator: Khadar Tang MDLymphocytes (Bld) [#/Vol]1.94 10*3/uLNormal 1.10-3.70[facility] HospitalComment on above:Performed By: #### CMPX, CDP #### [address] [place], [place] [address] Perinatal Coordinator: Kailyn Ortegamphocytes/100 WBC (Bld)22 %Oxs30-32Rwofx [facility]ed[facility] HospitalComment on above:Performed By: #### CMPX, CDP #### [address] [place], [facility]83 Perinatal Coordinator: MORENO OrtegaCH (RBC) [Entitic mass]23.3 pgLow25.2-33.5[facility]ed[facility] HospitalComment on above:Performed By: #### CMPX, CDP #### [address] [place], [facility]83 Perinatal Coordinator: MORENO OrtegaCHC (RBC) [Mass/Vol]30.0 g/kKUswgjk95.4-34.8[facility] HospitalComment on above:Performed By: #### CMPX, CDP #### [address] [place], [place] [address]83 Perinatal Coordinator: MORENO OrtegaCV (RBC) [Entitic vol]77.6 fLLow82.6-102.9[facility] HospitalComment on above:Performed By: #### CMPX, CDP #### [address] [place], [place] [address]83 Perinatal Coordinator: MORENO Ortegaonocytes (Bld) [#/Vol]0.72 10*3/uLNormal0.10-1.20 [facility] HospitalComment on above:Performed By: #### CMPX, CDP #### [address] [place] [address] Perinatal Coordinator: MORENO Ortegaonocytes/100 WBC (Bld)8 %Normal3-12[facility] HospitalComment on above:Performed By: #### CMPX, CDP #### [address] [place], [place] [address]883 Perinatal Coordinator: Khadar Tang MDNeutrophil (Seg)62 %Gccafz21-34AvzwrGlenbeigh HospitalComment on above:Performed By: #### CMPX, CDP #### [address] [place] [address] Perinatal Coordinator: Khadar Tang MDNRBC Automated0.0 per 100 WBCNormal0.0[facility] HospitalComment on above:Performed By: #### CMPX, CDP #### [address] [place], [place] [address]209783 Perinatal Coordinator: LAWRENCE Ortegalatelet mean volume (Bld) [Entitic vol]8.7 fL Normal8.1-13.5[facility] HospitalComment on above:Performed By: #### CMPX, CDP #### [address] [place] [address] Perinatal Coordinator: Laila Ortega (d) [#/Vol]263 10*3/vEBjudet372-955 [facility] HospitalComment on above:Performed By: #### CMPX, CDP #### [address] [place], [place] [address] ([address] Perinatal Coordinator: CLEOPATRA Ortega ([facility]) [#/Vol]3.22 10*6/uLLow4.21-5.77MerCleveland Clinic Akron General HospitalComment on above:Performed By: #### CMPX, CDP #### [address] [place] [address] Perinatal Coordinator: KEO Ortega ([facility]) [#/Vol]9.0 10*3/uLNormal3.5-11.3[facility] HospitalComment on above:Performed By: #### CMPX, CDP #### [address] [place] [address] Perinatal Coordinator: SALLY Ortegaomp Metabolic Pr/rfx MGon 00-40-0373Nznowfw [Mass/Vol]2.9 g/dLLow3.5-5.2[facility]ed[facility] HospitalComment on above:Performed By: #### CMPX, CDP #### [address] [place], [place] [address] Perinatal Coordinator: Khadar Tang MDAlbumin/Glob Ratio0.7Low1.0-2.5[facility] HospitalComment on above:Performed By: #### CMPX, CDP #### [address] [place] [address] Perinatal Coordinator: Lisa Ortega Phos89 U/UClsyod66-340JduwpGlenbeigh HospitalComment on above:Performed By: #### CMPX, CDP #### [address] [place], [place] [address]83 Perinatal Coordinator: Khadar Tang MDALT [Catalytic activity/Vol]11 U/LNormal5-41[facility] HospitalComment on above:Performed By: #### CMPX, CDP #### [address] [place], [place] [address]687[address] Perinatal Coordinator: Khadar Tang MDAnion gap [Moles/Vol]8 mmol/LLow9-17[facility] HospitalComment on above:Performed By: #### CMPX, CDP #### [address] [place], [place] 1583483 Perinatal Coordinator: Khadar Tang MDAST [Catalytic activity/Vol]12 U/LNormal<40[facility] HospitalComment on above:Performed By: #### CMPX, CDP #### [address] [place] [address] Perinatal Coordinator: Khadar Tang MDBilirubin [Mass/Vol]0.2 mg/dLLow0.3-1.2MercHartford HospitalComment on above:Performed By: #### CMPX, CDP #### [facility] [address] [place] [address] [place] [address] Perinatal Coordinator: Khdaar Tang MDBUN/CRE Xagwk78Aqkp8-89OndhzGlenbeigh Hospital Comment on above:Performed By: #### CMPX, CDP #### [address] [place], [place] [address] Perinatal Coordinator: Khadar Tang MDCalcium [Mass/Vol]9.0 mg/dLNormal8.6-10.4MerGreenwich HospitalComment on above:Performed By: #### CMPX, CDP #### [address] [place] [address] Perinatal Coordinator: SALLY Ortegahloride [Moles/Vol]115 mmol/YUrwf71-796SbtnyGlenbeigh HospitalComment on above:Performed By: #### CMPX, CDP #### [address] [place] [address] Perinatal Coordinator: SALLY OrtegaO2 [Moles/Vol]17 mmol/WYyk76-09YqnyhGlenbeigh HospitalComment on above:Performed By: #### CMPX, CDP #### [address] [place], [place] [address]483 Perinatal Coordinator: SALLY Ortegareatinine [Mass/Vol]1.55 mg/dLHigh0.70-1.20[facility] HospitalComment on above:Performed By: #### CMPX, CDP #### [address] [place] [address] Perinatal Coordinator: Khadar Tang MDGFR/1.73 sq M.predicted among non-blacks MDRD (S/P/Bld) [Vol rate/Area]51 mL/min/{1.73_m2}Low>60[facility] Of LivingComment on above:Result Comment: These results are not intended for [...] or following therapy that affects renal tubular secretion.Performed By: #### CMPX, CDP #### [address] [place] [address] [place] [address] Perinatal Coordinator: Khadar Tang MDGlucose [Mass/Vol]119 mg/iANxta63-05Oepsp [facility] Of LivingComment on above:Performed By: #### CMPX, CDP #### [address] [place] [place] [address] Perinatal Coordinator: LAWRENCE Ortegaotassium [Moles/Vol]5.4 mmol/LHigh3.7-5.3MSycamore Medical Center HospitalComment on above:Performed By: #### CMPX, CDP #### [address] [place], [place] [id number] Perinatal Coordinator: Khadar Tang MDProtein [Mass/Vol]7.1 g/dLNormal6.4-8.3MSycamore Medical Center HospitalComment on above:Performed By: #### CMPX, CDP #### [address] [place], [place] [id number] Perinatal Coordinator: Khadar Tang MDSodium [Moles/Vol]140 mmol/WQlogfx350-913BfyeiGlenbeigh HospitalComment on above:Performed By: #### CMPX, CDP #### [address] [place], [place] [id number] Perinatal Coordinator: Khadar Tang MDUrea nitrogen [Mass/Vol]38 mg/dLHigh8-23Glenbeigh HospitalComment on above:Performed By: #### CMPX, CDP #### [address] [place], [place] [id number] Perinatal Coordinator: SALLY Ortegaomprehensive Metabolic Panel w/ Reflex to MGon [id number] [Mass/Vol]2.9 g/dLLow3.5 - 5.2 g/dLBON [place] Albumin/Globulin [Mass ratio]0.7 {ratio}Low1.0 - 2.5BON CENTERVILLEALP [Catalytic activity/Vol]89 U/L40 - 129 U/LBON CENTERVILLEALT [Catalytic activity/Vol]11 U/L5 - 41 U/LBON [place]ENT[place]ILLEAnion gap [Moles/Vol]8 mmol/LLow9 - 17 mmol/LBON CENTERVILLEAST [Catalytic activity/Vol]12 U/L NINF - 40 U/LBON [place]ENTERVILLEBilirubin [Mass/Vol]0.2 mg/dLLow0.3 - 1.2 mg/dLBON CENTERVILLECalcium [Mass/Vol]9.0 mg/dL8.6 - 10.4 mg/dLBON CENTERVILLEChloride [Moles/Vol]115 mmol/LHigh98 - 107 mmol/LBON CENTERVILLECO2 [Moles/Vol]17 mmol/LLow20 - 31 mmol/LBON [place] Creatinine [Mass/Vol]1.55 mg/dLHigh0.70 - 1.20 mg/dLBON [place] GFR/1.73 sq M.predicted MDRD (S/P/Bld) [Vol rate/Area]51 mL/min/{1.73_m2}Low- PINFBON CENTERVILLEComment on above: These results are not intended [...] therapy that affects renal tubular secretion. Glucose [Mass/Vol]119 mg/lCWzer96 - 99 mg/dLBON [place] Interpretation and review of laboratory resultsAbnormalB[facility] Potassium [Moles/Vol]5.4 mmol/LHigh3.7 - 5.3 mmol/LBON [place] Protein [Mass/Vol]7.1 g/dL6.4 - 8.3 g/dLBON CENTERVILLESodium [Moles/Vol]140 mmol/L135 - 144 mmol/LBON CENTERVILLEUrea nitrogen [Mass/Vol]38 mg/dLHigh8 - 23 mg/dLBON CENTERVILLEUrea nitrogen/Creatinine (Bld) [Mass ratio]40Bdho9 - 20BON CENTERVILLEBON CENTERVILLEEKG 12 LeadOrdered By: Michelle Noe on 30-63-5875Gzsfdc Rate60 BPMBON SECOURS [facility] Work Phone: P [id number] [employer] Work Phone: P-R [id number] [facility] [employer] Work Phone: Q-T [phone] [facility] [employer] Work Phone: QRS [id number] [facility] [employer] Work Phone: QTc Calculation ([phone] [facility] [employer] Work Phone: R [id number] [employer] Work Phone: T [id number] [employer] Work Phone: Ventricular [id number] [employer] Work Phone: BON [employer] Work Phone: [phone] 12 Leadon 06-23-2022 Poor data quality, interpretation may be adversely affected Normal sinus rhythm Normal ECG When compared with ECG of 22-JUN-2022 13:14, (unconfirmed) Borderline criteria for Anterolateral infarct are no longer Present Criteria for Inferior infarct are no longer Present T wave inversion no longer evident in Inferior leads Confirmed by Michelle Noe MD ([id number]) on 06/23/2022 3:18:16 [facility] Michelle Noe MD - 06/23/2022 Poor data quality, interpretation may be adversely affected Normal sinus rhythm Normal ECG When compared with ECG of 22-JUN-2022 13:14, (unconfirmed) Borderline criteria for Anterolateral infarct are no longer Present Criteria for Inferior infarct are no longer Present T wave inversion no longer evident in Inferior leads Confirmed by Michelle Noe MD ([id number]) on 06/23/2022 3:18:[address] [facility] [employer] Work Phone: eKG Rhythm Stripon [id number] VALLEY HEALTH SYSTEM BLANCHARD VALLEY HOSPITALCrocodoc CENTERVILLEThe Good JobsGlucose, Whole Bloodon 86-05-3255Bpzicek [Mass/Vol]230 mg/qMIgug06 - 100 mg/dLBON [facility] HEALTHInterpretation and review of laboratory resultsAbnormalBON SECOURS MERCY HEALTHBON SECOURS [place]ENTERVILLEY HEALTHUrinalysison 20-13-0477Agxgnohoa UrineNegativeNEGATIVEBON [facility] HEALTHColor, UAYellowYellowBON SECCHILDREN'S HOSPITAL OF NEW ORLEANS HEALTHGlucose Auto test strip (U) [Mass/Vol]NegativeNEGATIVEBON SECOURS CENTERVILLEY HEALTHKetones (U) [Mass/Vol]Negative NEGATIVEBON SECCHILDREN'S HOSPITAL OF NEW ORLEANS HEALTHLeukocyte esterase Auto test strip Ql (U) NegativeNEGATIVEBON [facility] HEALTHNitrite Auto test strip Ql (U)Negative NEGATIVEBON SEC[facility]RS MERCY HEALTHProtein (U) [Mass/Vol]6.0 mg/dL5.0 - 9.0BON SECOU[facility] [place] HEALTHProtein (U) [Mass/Vol]NegativeNEGATIVEBON [facility] HEALTHSpecific [place], UA1.0201.010 - 1.020BON CENTERVILLETurbidity UA ClearClearBON [facility] HEALTHUrine HgbNegativeNEGATIVEBON [facility] - WESTUrobilinogen, UrineNormalNormalBON SECOU[facility]IN CAMPUSBON SECCHILDREN'S HOS[facility] HEALTHUrinalysis, Routineon [id number], SemiQt,UrNegativeNormalNEGMerGreenwich HospitalComment on above:Performed By: #### UA #### [facility] [address] [place] [place] [address] Perinatal Coordinator: Carlos Ortega, UrineNegativeNormalMount Carmel Health System Comment on above:Performed By: #### UA #### [facility] [address] [place], [place] [address] Perinatal Coordinator: Danitza Ortega ()ClearNormalCMercy Health Lorain Hospital Comment on above:Performed By: #### UA #### [facility] [address] [place], [place] [address] Perinatal Coordinator: SALLY Ortegaolor (U)YellowNoProMedica Bay Park Hospital Comment on above:Performed By: #### UA #### [facility] [address] [place] [address] Dr. [place], [place] [id number] Perinatal Coordinator: Khadar Tang MDGlucose Ql (U)NegativeNormalNEGMerGreenwich HospitalComment on above:Performed By: #### UA #### [facility] [address] [place] [address] Dr. [place], [facility]83 Perinatal Coordinator: Khadar Tang MDKetones Ql (U)NegativeNormalNEGMercy Clarkedale HospitalComment on above:Performed By: #### UA #### [address] [place] [place] [address] Perinatal Coordinator: Khadar Tang MDLeukocyte esterase Test strip Ql (U)NegativeNormal NEGMercy The Institute Of LivingComment on above:Performed By: #### UA #### [address] [place], [facility]83 Perinatal Coordinator: Khadar Tang MDNitrite,UrNegativeNormalMount Carmel Health System Comment on above:Performed By: #### UA #### [address] [place], [facility]83 Perinatal Coordinator: LAWRENCE Ortega,Ur6.6Buqioy7.0-9.0[facility] Hospitalcy The Institute Of LivingComment on above:Performed By: #### UA #### [facility] [address] [place] [address] Dr. [place], [facility]83 Perinatal Coordinator: LAWRENCE Ortegarotein Ql (U)NegativeNormalNEGDayton Va Medical Center HospitalComment on above:Performed By: #### UA #### [facility] [address] [place] [address] Dr. [place], [facility]83 Perinatal Coordinator: SAMMI Ortegapec. [place],Ur1.616Zvacig8.010-1.020MerGreenwich HospitalComment on above:Performed By: #### UA #### [facility] [address] [place] [address] Perinatal Coordinator: Tg OrtegaSelect Medical Specialty Hospital - Columbus SouthComment on above:Performed By: #### UA #### [facility] [address] [place] [address] Perinatal Coordinator: Khadar Tang MDXR ANKLE RIGHT (MIN 3 VIEWS)on [id number] ANKLE RIGHT (MIN 3 VIEWS)EXAMINATION: THREE XRAY VIEWS OF THE RIGHT ANKLE [...] Signed by: Derrick Squires MD 06/23/22 Final resultNoOhioHealth Riverside Methodist Hospital1. Nonspecific diffuse subcutaneous edema. 2. Periostitis at the lateral aspect of the fibula distally. There was osteomyelitis in this region previously. This could reflect chronic osteomyelitis. Elsewhere, there is no subcutaneous air or evidence of osteomyelitis. [facility] RIS CONSOLIDATEDEXAMINATION: THREE XRAY VIEWS OF THE RIGHT ANKLE [...] lesion is noted. Calcaneal spurring appears unchanged. [facility] Derrick Barraza MD - 06/23/2022 EXAMINATION: THREE XRAY VIEWS [...] no subcutaneous air or evidence of osteomyelitis. [employer] Phone: radiology Study observation (narrative)[employer] Phone: XR ANKLE RIGHT (MIN 3 VIEWS)Ordered By: Derrick Squires on 72-68-8679QZP [employer] Phone: Basic Metabolic Panelon 04-90-1628Ofvkw gap [Moles/Vol]9 mmol/L9 - 17 mmol/LBON [facility] HEALTHCalcium [Mass/Vol]9.5 mg/dL8.6 - 10.4 mg/dLBON [facility] HEALTHChloride [Moles/Vol]112 mmol/LHigh 98 - 107 mmol/LBON [facility] HEALTHCO2 [Moles/Vol]17 mmol/LLow20 - 31 mmol/L MobyparkCreatinine [Mass/Vol]2 mg/dLHigh0.70 - 1.20 mg/dLBON [facility] HEALTHGFR/1.73 sq M.predicted MDRD (S/P/Bld) [Vol rate/Area]38 mL/min/{1.73_m2}Low- PINFBON LinkStormComment on above: These results are not intended [...] therapy that affects renal tubular secretion. Glucose [Mass/Vol]137 mg/fJKorn79 - 99 mg/dLBON [place] Interpretation and review of laboratory resultsAbnormalBON [place] Potassium [Moles/Vol]6.1 mmol/LCritically high3.7 - 5.3 mmol/LBON [place]ILLESodium [Moles/Vol]138 mmol/L135 - 144 mmol/LBON [place]ENTERVILLEUrea nitrogen [Mass/Vol]45 mg/dLHigh8 - 23 mg/dLBON CENTERVILLEUrea nitrogen/Creatinine (Bld) [Mass ratio]40Vwux5 - 20BON [facility] HOSPITALBasic Metabolic Profon 65-41-3623Swtwfjaxs [Moles/Vol]6.1 mmol/LCritically high3.7-5.3[facility] The Institute Of LivingComment on above:Performed By: #### TROPI #### [facility] [address] [place] [address] [place] [address] Perinatal Coordinator: Khadar Tang MDAnijohn gap [Moles/Vol]9 mmol/LNormal9-17Glen[facility]igh HospitalComment on above:Performed By: #### TROPI #### [facility] [address] [place] [address] [place] [address] Perinatal Coordinator: Khadar Tang MDBUN/CRE Egccl74Abfx8-64NjoapGlenbeigh Hospital Comment on above:Performed By: #### TROPI #### [address] [place] [address] [place] [address] Perinatal Coordinator: SALLY Ortegaalcium [Mass/Vol]9.5 mg/dLNormal8.6-10.4Glenbeigh HospitalComment on above:Performed By: #### TROPI #### [address] [place] [address] Perinatal Coordinator: SALLY Ortegahloride [Moles/Vol]112 mmol/HGnvf53-333UclzwGlenbeigh HospitalComment on above:Performed By: #### TROPI #### [address] [place], [place] [id number] Perinatal Coordinator: SALLY OrtegaO2 [Moles/Vol]17 mmol/ZFlh22-62UyoogGlenbeigh HospitalComment on above:Performed By: #### TROPI #### [address] [place] [address] Perinatal Coordinator: SALLY Ortegareatinine [Mass/Vol]2.00 mg/dLHigh0.70-1.20Glen[facility]igh HospitalComment on above:Performed By: #### TROPI #### [address] [place] [address] Perinatal Coordinator: Khadar Tang MDGFR/1.73 sq M.predicted among non-blacks MDRD (S/P/Bld) [Vol rate/Area]38 mL/min/{1.73_m2}Low>60Glenbeigh HospitalComment on above:Result Comment: These results are not intended for [...] or following therapy that affects renal tubular secretion.Performed By: #### TROPI #### [address] [place] [address] Perinatal Coordinator: Khadar Tang MDGlucose [Mass/Vol]137 mg/iSBmdf52-64Cksvp The Institute Of LivingComment on above:Performed By: #### TROPI #### [address] [place] [address] Perinatal Coordinator: SAMMI Ortegaodium [Moles/Vol]138 mmol/ZYxrchx645-080KplpbGlenbeigh HospitalComment on above:Performed By: #### TROPI #### [facility] [address] [place] [address] Perinatal Coordinator: Khadar Tang MDUrea nitrogen [Mass/Vol]45 mg/dLHigh8-23Glen[facility]igh HospitalComment on above:Performed By: #### TROPI #### [facility] [address] [place] [address] Perinatal Coordinator: Khadar Tang [facility] OKLAHOMA CITYBC with Auto Differentialon [id number] Eos #0.86HighBON SECOURS CENTERVILLEY [facility] HOSPITALAbsolute Immature Granulocyte0.09BON SEC[facility] CENTERVILLEY HEALTHAbsolute Lymph #1.97BON SEC[facility] [place]ENTERVILLEY HEALTHAbsolute Spink # 0.88B[facility]IN CAMPUSBasophils (Bld) [#/Vol]0.05 10*3/uLBON SECOURS CENTERVILLEY [facility] HOSPITALBasophils/100 WBC (Bld)0 %0 - 2 %B[facility] SEC[facility] [place]ENT[place] T[facility] CITY HOSPITALEosinophils/100 WBC (Bld)7 %High1 - 4 %B[facility] MAIN CAMPUSHematocrit (Bld) [Volume fraction]27.6 %Low40.7 - 50.3 %BON SECMERGED WITH SWEDISH HOSPITALY HEALTHHemoglobin (Bld) [Mass/Vol]8.3 g/dLLow13.0 - 17.0 g/dLBON SECOURS [facility] MAIN CAMPUSImmature granulocytes/100 WBC (Bld)1 %Dvdz2NLQ SECOURS [place]ENTERV[place]LEY HEALTHInterpretation and review of laboratory resultsAbnormalBON SECOURS CENTERVILLEY T[facility] CITY HOSPITALLymphocytes/100 WBC (Bld)15 %Low24 - 43 %BON [facility]CT[facility] MEDICAL CENTERH (RBC) [Entitic mass]23.3 pgLow 25.2 - 33.5 pgBON SECTRINITY HEALTH SYSTEM TWIN CITY MEDICAL CENTERHC (RBC) [Mass/Vol]30.1 g/dL28.4 - 34.8 g/dLBON SEC[facility]RS MERCY HEALTHMCV (RBC) [Entitic vol]77.5 fLLow82.6 - 102.9 fLBON SECUZMA KETTERING HEALTH MAIN CAMPUSMonocytes/100 WBC (Bld)7 %3 - 12 %[facility] NRBC Automated0.00.0 per 100 WBCBON SECMERGED WITH SWEDISH HOSPITALY HEALTHPlatelet distribution width (Bld) [Ratio]16.2 %High11.8 - 14.4 %BON [facility]CLA[facility] - WESTPlatelet mean volume (Bld) [Entitic vol]8.6 fL8.1 - 13.5 fLBON SECOURS [facility] HEALTHPlatelets (Bld) [#/Vol]338 10*3/uLBON [facility]OURS [facility] HEALTHRBC (Bld) [#/Vol]3.56 10*6/uLLow 4.21 - 5.77 m/uLBON [facility] - WESTSegmented neutrophils/100 WBC (Bld)70 % High36 - 65 %[facility] CENTERSegs Absolute8.91HighBON SECLAKE [facility]OR[facility]OSPITAL - WESTWBC (Bld) [#/Vol]12.8 10*3/uLHighBON SECOU[facility] MAIN CAMPUSBON [facility]CLA[facility] - WESTAbsolute Eos #0.84HighBON SECOURS [facility]IN CAMPUSAbsolute Immature Granulocyte0.06B[facility] CAMPUSAbsolute Lymph #1.69B[facility] SEC[facility] CENTERV[place] [facility]OSPITALAbsolute Spink #0.82BON [facility] - WESTBasophils (Bld) [#/Vol]0.04 10*3/uLBON [facility]CLA[facility] - WESTBasophils/100 WBC (Bld)0 %0 - 2 %[facility] CENTEREosinophils/100 WBC (Bld)7 %High1 - 4 %[facility] Hematocrit (Bld) [Volume fraction]27.1 %Low40.7 - 50.3 %[facility] [employer] Hemoglobin (Bld) [Mass/Vol]8.7 g/dLLow13.0 - 17.0 g/dLBON SECCHILDREN'S HOSPITAL [facility]LE[facility] [employer] Immature granulocytes/100 WBC (Bld)1 %Sydq8MVZ [place] Interpretation and review of laboratory resultsAbnormalBON [place] Lymphocytes/100 WBC (Bld)14 %Low24 - 43 %[facility] CENTERMCH (RBC) [Entitic mass]25.3 pg25.2 - 33.5 pgBON GAL[facility] COMM[facility]ITY HOSPITALHC (RBC) [Mass/Vol] 32.1 g/dL28.4 - 34.8 g/dLBON GALION COMMUNITY HOSPITALV (RBC) [Entitic vol]78.8 fL Low82.6 - 102.9 fLBON SECOURS DEPAUL MEDICAL CENTERMonocytes/100 WBC (Bld)7 %3 - 12 %[facility] MEDICAL CENTERNRBC Automated0.00.0 per 100 WBCBON [facility]RS [facility] Platelet distribution width (Bld) [Ratio]16.4 %High11.8 - 14.4 %[facility] MEDICAL CENTERPlatelet mean volume (Bld) [Entitic vol]9.4 fL8.1 - 13.5 fLBON SECOURS DEPAUL MEDICAL CENTERPlatelets (Bld) [#/Vol]345 10*3/uLBON [facility]RS [facility] RBC (Bld) [#/Vol]3.44 10*6/uLLow4.21 - 5.77 m/uLBON [facility] Segmented neutrophils/100 WBC (Bld)71 %High36 - 65 %[facility] CENTERSegs Absolute9.06HighBON SECOURS DEPAUL MEDICAL CENTERWBC (Bld) [#/Vol]12.5 10*3/uLHighMARTINSVILLE MEMORIAL HOSPITALCBC with Diffon [id number]. Basophil0.05 k/uLNormal0.00-0.20Glenbeigh HospitalComment on above:Performed By: #### MARGARITO MG, CP #### [address] [place] [address] Perinatal Coordinator: Audra Ortega.Imm.Granulocyte0.09 k/uLNormal0.00-0.30G[facility]igh HospitalComment on above:Performed By: #### MARGARITO, MG, CP #### [facility] [address] [place] [address] [place] [address] Perinatal Coordinator: Audra Ortega.Neutrophil (Seg)8.91 k/uLHigh1.50-8.10[facility] HospitalComment on above:Performed By: #### CDP, MG, CP #### [address] [place] [address] Perinatal Coordinator: Khadar Tang MDBasophils/100 WBC (Bld)0 %Normal0-2[facility] Clarkedale HospitalComment on above:Performed By: #### CDP, MG, CP #### [address] [place] [address] Perinatal Coordinator: Khadar Tang MDEosinophils (Bld) [#/Vol]0.86 10*3/uLHigh0.00-0.44 [facility] HospitalComment on above:Performed By: #### CDP, MG, CP #### [address] [place] [address] Perinatal Coordinator: TOOTIE Ortegaosinophils/100 WBC (Bld)7 %High1-4[facility] HospitalComment on above:Performed By: #### CDP, MG, CP #### [address] [place] [address] Perinatal Coordinator: Khadar Tang MDErythrocyte distribution width (RBC) [Ratio]16.2 % High11.8-14.4[facility] HospitalComment on above:Performed By: #### CDP, MG, CP #### [address] [place], [place] [address] Perinatal Coordinator: Khadar Tang MDHematocrit (Bld) [Volume fraction]27.6 %Low 40.7-50.3Mkettering health washington townshipy Clarkedale HospitalComment on above:Performed By: #### CDP, MG, CP #### [address] [place] [address] Perinatal Coordinator: Khadar Tang MDHemoglobin (Bld) [Mass/Vol]8.3 g/dLLow13.0-17.0 [facility] HospitalComment on above:Performed By: #### CDP, MG, CP #### [address] [place], [place] [address] Perinatal Coordinator: Khadar Tang MDImmature granulocytes/100 WBC (Bld)1 %Ewxo1DmlrxDayton Va Medical Center HospitalComment on above:Performed By: #### CDP, MG, CP #### [address] [place], [place] [address] Perinatal Coordinator: Khadar Tang MDLymphocytes (Bld) [#/Vol]1.97 10*3/uLNormal 1.10-3.70[facility] HospitalComment on above:Performed By: #### CDP, MG, CP #### [address] [place], [facility]83 Perinatal Coordinator: Kailyn Ortegamphocytes/100 WBC (Bld)15 %Cld04-25Fvjsr Tiffin HospitalComment on above:Performed By: #### CDP, MG, CP #### [address] [place], [facility]83 Perinatal Coordinator: MORENO OrtegaCH (RBC) [Entitic mass]23.3 pgLow25.2-33.5[facility] HospitalComment on above:Performed By: #### CDP, MG, CP #### [address] [place], [facility]83 Perinatal Coordinator: MORENO OrtegaCHC (RBC) [Mass/Vol]30.1 g/bTLxpwis45.4-34.8[facility] HospitalComment on above:Performed By: #### CDP, MG, CP #### [address] [place] [address] Perinatal Coordinator: MORENO OrtegaCV (RBC) [Entitic vol]77.5 fLLow82.6-102.9Glen[facility] HospitalComment on above:Performed By: #### CDP, MG, CP #### [address] [place] [address] Perinatal Coordinator: MORENO Ortegaonocytes (Bld) [#/Vol]0.88 10*3/uLNormal0.10-1.20 [facility] HospitalComment on above:Performed By: #### CDP, MG, CP #### [address] [place] [address] Perinatal Coordinator: MORENO Ortegaonocytes/100 WBC (Bld)7 %Normal3-12G[facility] HospitalComment on above:Performed By: #### CDP, MG, CP #### [address] [place], [place] [address] Perinatal Coordinator: Damir Ortegaophil (Seg)70 %Yedi93-84VdbmmGlenbeigh Hospital Comment on above:Performed By: #### CDP, MG, CP #### [address] [place] [address] Perinatal Coordinator: Khadar Tang MDNRBC Automated0.0 per 100 WBCNormal0.0Glenbeigh HospitalComment on above:Performed By: #### CDP, MG, CP #### [address] [place], [facility]83 Perinatal Coordinator: LAWRENCE Ortegalatelet mean volume (Bld) [Entitic vol]8.6 fL Normal8.1-13.5Glen[facility] HospitalComment on above:Performed By: #### CDP, MG, CP #### [address] [place], [place] [address] Perinatal Coordinator: LAWRENCE Ortegalatelets (Bld) [#/Vol]338 10*3/oNPivqab633-741 [facility] HospitalComment on above:Performed By: #### MARGARITO, MG, CP #### [address] [place], [place] [address] Perinatal Coordinator: VIKY OrtegaBC (Bld) [#/Vol]3.56 10*6/uLLow4.21-5.77MerCleveland Clinic Akron General HospitalComment on above:Performed By: #### MARGARITO MG, CP #### [address] [place], [place] [address] Perinatal Coordinator: KEO Ortega (Bld) [#/Vol]12.8 10*3/uLHigh3.5-11.3[facility] Clarked[facility] HospitalComment on above:Performed By: #### MARGARITO MG, CP #### [address] [place] [address] Perinatal Coordinator: Audra Ortega. Basophil0.04 k/uLNormal0.00-0.20[facility] HospitalComment on above:Performed By: #### TROPI #### [address] [place], [place] [address] Perinatal Coordinator: MDAbs. ShannonImm.Granulocyte0.06 k/uLNormal0.00-0.30MerCleveland Clinic Akron General HospitalComment on above:Performed By: #### TROPI #### [address] [place], [place] [address] Perinatal Coordinator: Audra Ortega.Neutrophil (Seg)9.06 k/uLHigh1.50-8.10[facility] HospitalComment on above:Performed By: #### TROPI #### [address] [place] [address] Perinatal Coordinator: Joyce Ortegasophils/100 WBC (Bld)0 %Normal0-2[facility]ed[facility] HospitalComment on above:Performed By: #### TROPI #### [address] [place], [facility]83 Perinatal Coordinator: Khadar Tang MDEosinophils (Bld) [#/Vol]0.84 10*3/uLHigh0.00-0.44 [facility] HospitalComment on above:Performed By: #### TROPI #### [address] [place], [place] [address] Perinatal Coordinator: TOOTIE Ortegaosinophils/100 WBC (Bld)7 %High1-4[facility] HospitalComment on above:Performed By: #### TROPI #### [address] [place] [address] Perinatal Coordinator: Khadar Tang MDErythrocyte distribution width (RBC) [Ratio]16.4 % High11.8-14.4[facility] HospitalComment on above:Performed By: #### TROPI #### [address] [place], [facility]83 Perinatal Coordinator: Khadar Tang MDHematocrit (Bld) [Volume fraction]27.1 %Low 40.7-50.3[facility] Clarkedale HospitalComment on above:Performed By: #### TROPI #### [address] [place], [place] [address] Perinatal Coordinator: Khadar Tang MDHemoglobin (Bld) [Mass/Vol]8.7 g/dLLow13.0-17.0 [facility] HospitalComment on above:Performed By: #### TROPI #### [address] [place] [address] Perinatal Coordinator: Khadar Tang MDImmature granulocytes/100 WBC (Bld)1 %Zcjv0PdgvdDayton Va Medical Center HospitalComment on above:Performed By: #### TROPI #### [address] [place], [facility]83 Perinatal Coordinator: Khadar Tang MDLymphocytes (Bld) [#/Vol]1.69 10*3/uLNormal 1.10-3.70[facility] HospitalComment on above:Performed By: #### TROPI #### [address] [place] [address] Perinatal Coordinator: Kailyn Ortegamphocytes/100 WBC (Bld)14 %[id number] HospitalComment on above:Performed By: #### TROPI #### [address] [place] [address] Perinatal Coordinator: MORENO OrtegaCH (RBC) [Entitic mass]25.3 mzDijdrl29.2-33.5 [facility] HospitalComment on above:Performed By: #### TROPI #### [address] [place] [address] Perinatal Coordinator: PEEWEE OrtegaC (RBC) [Mass/Vol]32.1 g/tWSyypuk15.4-34.8[facility] HospitalComment on above:Performed By: #### TROPI #### [address] [place] [address] Perinatal Coordinator: MORENO OrtegaCV (RBC) [Entitic vol]78.8 fLLow82.6-102.9[facility] HospitalComment on above:Performed By: #### TROPI #### [address] [place], [place] [id number] Perinatal Coordinator: MORENO Ortegaonocytes (Bld) [#/Vol]0.82 10*3/uLNormal0.10-1.20 [facility] HospitalComment on above:Performed By: #### TROPI #### [address] [place] [address] Perinatal Coordinator: Khadar Tang MDMonocytes/100 WBC (Bld)7 %Normal3-12[facility] HospitalComment on above:Performed By: #### TROPI #### [address] [address] [place] [address] Perinatal Coordinator: Khadar Tang MDNeutrophil (Seg)71 %Xscw16-65Gfdsq [facility] Comment on above:Performed By: #### TROPI #### [address] [place] [address] [place] [address] Perinatal Coordinator: SOLEDAD Ortega Automated0.0 per 100 WBCNormal0.0Glenbeigh HospitalComment on above:Performed By: #### TROPI #### [address] [place], [place] [address]83 Perinatal Coordinator: Dewayne Ortegatelenard mean volume (Bld) [Entitic vol]9.4 fL Normal8.1-13.5Glenbeigh HospitalComment on above:Performed By: #### TROPI #### [address] [place] [address] Perinatal Coordinator: LAWRENCE Ortegalatelets (Bld) [#/Vol]345 10*3/yJFknpiv127-017 [facility]igh HospitalComment on above:Performed By: #### TROPI #### [facility] [address] [place] [address] Dr. [place], [place] [id number] Perinatal Coordinator: VIKY OrtegaBC (Bld) [#/Vol]3.44 10*6/uLLow4.21-5.77Glenbeigh HospitalComment on above:Performed By: #### TROPI #### [address] [place], [place] [id number] Perinatal Coordinator: BERT OrtegaBC (Bld) [#/Vol]12.5 10*3/uLHigh3.5-11.3[facility] Institute Of LivingComment on above:Performed By: #### TROPI #### [facility] [address] [place] [place] [address] Perinatal Coordinator: Khadar Tang [facility] [phone] [Mass/Vol]3.2 g/dLLow3.5 - 5.2 g/dLBON CENTERVILLEAlbumin/Globulin [Mass ratio]0.7 {ratio}Low1.0 - 2.5BON [facility] HEALTHALP [Catalytic activity/Vol]101 U/L40 - 129 U/LBON [facility] HEALTHALT [Catalytic activity/Vol]8 U/L5 - 41 U/LBON CENTERVILLEAnion gap [Moles/Vol]11 mmol/L9 - 17 mmol/LBON [facility] HEALTHAST [Catalytic activity/Vol]13 U/LNINF - 40 U/LBON CENTERVILLEBilirubin [Mass/Vol]mg/dLLow0.3 - 1.2 mg/dLBON [facility] HEALTHCalcium [Mass/Vol]9.1 mg/dL8.6 - 10.4 mg/dLBON [facility] HEALTHChloride [Moles/Vol]110 mmol/LHigh 98 - 107 mmol/LBON [facility] HEALTHCO2 [Moles/Vol]16 mmol/LLow20 - 31 mmol/L BON CENTERVILLECreatinine [Mass/Vol]1.93 mg/dLHigh0.70 - 1.20 mg/dLBON [facility] HEALTHGFR/1.73 sq M.predicted MDRD (S/P/Bld) [Vol rate/Area]39 mL/min/{1.73_m2}Low- PINFBON CENTERVILLEComment on above: These results are not intended [...] therapy that affects renal tubular secretion. Glucose [Mass/Vol]148 mg/zAHmat96 - 99 mg/dLBON CENTERVILLE Interpretation and review of laboratory resultsAbnormalBON [place]ENT[place] Potassium [Moles/Vol]6.3 mmol/LCritically high3.7 - 5.3 mmol/LBON CENTERVILLEProtein [Mass/Vol]8.1 g/dL6.4 - 8.3 g/dLBON CENTERVILLESodium [Moles/Vol]137 mmol/L135 - 144 mmol/LBON CENTERVILLEUrea nitrogen [Mass/Vol]49 mg/dLHigh8 - 23 mg/dLBON CENTERVILLEUrea nitrogen/Creatinine (Bld) [Mass ratio]47Crfs3 - 20BON [facility]OSPITALComp Metabolic Profon 14-65-4412Qbsevykzd [Mass/Vol]mg/dLLow 0.3-1.2Mer[facility] Clarkedale HospitalComment on above:Performed By: #### CDP, MG, CP #### [address] [place] [address] Perinatal Coordinator: Khadar Tang MDPotassium [Moles/Vol]6.3 mmol/LCritically high 3.7-5.3[facility] Institute Of LivingComment on above:Performed By: #### CDP, MG, CP #### [address] [place] [address] Perinatal Coordinator: Khadar Tang MDAlbumin [Mass/Vol]3.2 g/dLLow3.5-5.2[facility] Institute Of LivingComment on above:Performed By: #### CDP, MG, CP #### [address] [place] [address] [place] [address] Perinatal Coordinator: Khadar Tang MDAlbumin/Glob Ratio0.7Low1.0-2.5Glenbeigh HospitalComment on above:Performed By: #### CDP, MG, CP #### [address] [place] [address] Perinatal Coordinator: Lisa Ortega Wdww638 U/TOxvkds33-024WdrpyGlenbeigh HospitalComment on above:Performed By: #### CDP, MG, CP #### [address] [place], [place] 2640683 Perinatal Coordinator: Khadar Tang MDALT [Catalytic activity/Vol]8 U/LNormal5-41[facility] HospitalComment on above:Performed By: #### CDP, MG, CP #### [address] [place], [place] 8986283 Perinatal Coordinator: Khadar Tang MDAnion gap [Moles/Vol]11 mmol/LNormal9-17MerCleveland Clinic Akron General HospitalComment on above:Performed By: #### CDP, MG, CP #### [address] [place], [place] 4366883 Perinatal Coordinator: Khadar Tang MDAST [Catalytic activity/Vol]13 U/LNormal<40MerCleveland Clinic Akron General HospitalComment on above:Performed By: #### CDP, MG, CP #### [address] [place], [place] 2029883 Perinatal Coordinator: Khadar Tang MDBUN/CRE Erres51Tysu2-75QhbjbGlenbeigh Hospital Comment on above:Performed By: #### CDP, MG, CP #### [address] [place], [place] 3235883 Perinatal Coordinator: Khadar Tang MDCalcium [Mass/Vol]9.1 mg/dLNormal8.6-10.4MerCleveland Clinic Akron General HospitalComment on above:Performed By: #### CDP, MG, CP #### [address] [place] [address] [place] [address] Perinatal Coordinator: Khadar Tang MDChloride [Moles/Vol]110 mmol/EAwwt63-495Rrjqu [facility] HospitalComment on above:Performed By: #### CDP, MG, CP #### [address] [place] [address] [place] [address] Perinatal Coordinator: SALLY OrtegaO2 [Moles/Vol]16 mmol/OWyu11-67XlzsbGlenbeigh HospitalComment on above:Performed By: #### CDP, MG, CP #### [address] [place] [address] [place] [address] Perinatal Coordinator: SALLY Ortegareatinine [Mass/Vol]1.93 mg/dLHigh0.70-1.20[facility]beigh HospitalComment on above:Performed By: #### MARGARITO, MG, CP #### [address] [place] [address] [place] [address] Perinatal Coordinator: Khadar Tang MDGFR/1.73 sq M.predicted among non-blacks MDRD (S/P/Bld) [Vol rate/Area]39 mL/min/{1.73_m2}Low>60G[facility]beigh HospitalComment on above:Result Comment: These results are not intended for [...] or following therapy that affects renal tubular secretion.Performed By: #### MARGARITO, MG, CP #### [address] [place] [address] [place] [address] Perinatal Coordinator: Khadar Tang MDGlucose [Mass/Vol]148 mg/nEYifw33-06Rgezy Clarkedale HospitalComment on above:Performed By: #### MARGARITO, MG, CP #### [address] [place] [address] [place] [address] Perinatal Coordinator: LAWRENCE Ortegarotein [Mass/Vol]8.1 g/dLNormal6.4-8.3[facility] Clarkedale HospitalComment on above:Performed By: #### CDP, MG, CP #### [facility] [address] [place], [place] 6606883 Perinatal Coordinator: SAMMI Ortegaodium [Moles/Vol]137 mmol/SXixter840-959KtfxhGlenbeigh HospitalComment on above:Performed By: #### CDP, MG, CP #### [facility] [address] [place], [place] [phone] ([address] Perinatal Coordinator: Soo Ortega nitrogen [Mass/Vol]49 mg/dLHigh8-23G[facility]beigh HospitalComment on above:Performed By: #### MARGARITO, MG, CP #### [facility] [address] [place], [place] 1948383 Perinatal Coordinator: Khadar Tang MDEKG 12 LeadOrdered By: Michelle Noe on 06-22-2022 Atrial [email or web address] Phone: [phone] Oiop59nectnrwRMPNandi Proteins Phone: P-R Jxueawqf132 ksBuxfer Phone: Q-T Drgudytv391 ksBuxfer Phone: [phone] Tgrpkddj25 ksBuxfer Phone: QTc Calculation (Constantino)386 ksBuxfer Phone: R Ltfn02hwdzkrtRRC SECOURS CENTERVILLETrialScope Phone: T [place]-8degreesBuxfer Phone: Ventricular Uoor47EQZGLW [employer] Phone: BON [employer] Phone: EKG 12 Leadon 91-22-8540Dfubs bradycardia Inferior infarct , age undetermined Possible Anterolateral infarct , age undetermined Abnormal ECG When compared with ECG of 24-APR-2015 18:25, Vent. rate has decreased BY 39 BPM Borderline criteria for Anterolateral infarct are now Present T wave inversion now evident in Inferior leads QT has shortened Confirmed by Michelle Noe MD ([id number]) on 06/22/2022 10:09:31 [facility] Michelle Noe MD - 06/22/2022 Sinus bradycardia Inferior infarct , age undetermined Possible Anterolateral infarct , age undetermined Abnormal ECG When compared with ECG of 24-APR-2015 18:25, Vent. rate has decreased BY 39 BPM Borderline criteria for Anterolateral infarct are now Present T wave inversion now evident in Inferior leads QT has shortened Confirmed by Michelle Noe MD ([id number]) on 06/22/2022 10:09:31 PM [facility] Work Phone: Magnesiumon [phone] [Mass/Vol]2.0 mg/dL Normal1.6-2.6[facility] Institute Of LivingComment on above:Performed By: #### CDP, MG, CP #### [facility] [address] [place] [address] Perinatal Coordinator: Khadar Tang MDMagnesium [Mass/Vol]2.0 mg/dL1.6 - 2.6 mg/dLBON CENTERVILLEBON [facility] PELVIS WO CONon [id number] PELVIS WO CONEXAMINATION: CT PELVIS WO CON HISTORY: Pain in right hip [...] Electronically authenticated by: JESUSITA PAPPAS Date: 2022-03-14 09:50[facility] CenterGLYCOHEMOGLOBIN A1Con [id number] RECOMMENDATIONADA THERAPEUTIC TARGET 6.0 - 7.0 ACTION SUGGESTED > 7.0[facility] Comment on above:Performed By: #### A1C #### [facility] [address] [address] [address] Juan SmithGlucose [Mass/Vol]180 mg/dLNoUniversity Hospitals Portage Medical CenterComment on above:Performed By: #### A1C #### [facility] [address] [address] [address] Juan SmithHbA1c (Bld) [Mass fraction]7.9 %Critically high<=6.0The Wilson HealthComment on above:Performed By: #### A1C #### [facility] [address] [address] [address] Juan Verduzco,Aerobe/Anaerobeon [phone] Description .TISSUE RIGHT MEDIAL HEEL POST IRRIGATIONSpecial Requests NOT REPORTEDDirect Ex am NO NEUTROPHILS SEEN NO BACTERIA SEEN Culture METHICILLIN RESISTANT STAPHYLOCOCCUS AUREUS SCANT GROWTH For susceptibility, refer to previous culture. STREPTOCOCCI, BETA HEMOLYTIC GROUP C SCANT GROWTH DIPHTHEROIDS SCANT GROWTH NO ANAEROBIC ORGANISMS ISOLATED AT 5 DAYS Report Status FINAL 04/15/2017 [facility] CampusComment on above:Performed By: #### AANC ####[employer] [place] [address] [phone] Neutrophils Specimen Description .TISSUE RIGHT ANKLE PRE IRRIGATIONSpecial Requests NOT REPORTEDDirect Exam NO NEUTROPHILS SEEN RARE GRAM POSITIVE COCCI IN PAIRS Culture METHICILLIN RESISTANT STAPHYLOCOCCUS AUREUS LIGHT GROWTH For susceptibility, refer to previous culture. STREPTOCOCCI, BETA HEMOLYTIC GROUP C SCANT GROWTH NO ANAEROBIC ORGANISMS ISOLATED AT 5 DAYS Report Status FINAL 04/15/2017NoSalem Regional Medical CenterComment on above:Performed By: #### AANC ####[address] [id number] NeutrophilsSpecimen Description .TISSUE RIGHT MEDIAL HEEL PRE IRRIGATIONSpecial Requests NOT REPORTEDDirect Exam NO NEUTROPHILS SEEN NO BACTERIA SEEN Culture STREPTOCOCCI, BETA HEMOLYTIC GROUP C LIGHT GROWTH METHICILLIN RESISTANT STAPHYLOCOCCUS AUREUS SCANT GROWTH For susceptibility, refer to previous culture. DIPHTHEROIDS LIGHT GROWTH NO ANAEROBIC ORGANISMS ISOLATED AT 5 DAYS Report Status FINAL 04/15/2017NoSalem Regional Medical CenterComment on above:Performed By: #### AANC ####[employer] [id number] Basic Metabolic Profon 04-13-2017(cont.)[facility] CampusComment on above:Result Comment: Average GFR for 50-59 years old: 93 mL/min/1.73sq mChronic Kidney Disease: <60 mL/min/1.73sq mKidney failure: <15 mL/min/1.73sq meGFR calculated using average adult body mass. Ad ditional eGFR calculator available at:http://www.[employer].PressBaby/multiple_crcl_2012.htm[address] [address] Performed By: #### CDP, CMPX, CRP, SED, GLYHGB ####Gaut[facility] [address] [place] [address] Anion gap11 mmol/LNormal9-17[facility] SouthComment on above:Performed By: #### CDP, CMPX, CRP, SED, GLYHGB ####[facility] [address] [place] [address] Fkwcwzl5.7 mg/dLNormal8.6-10.4[facility] Comment on above:Performed By: #### CDP, CMPX, CRP, SED, GLYHGB ####Gautamlowell [address] [place] [address] Rpnpovkr584 mmol/LNormal 98-107[facility] SouthComment on above:Performed By: #### CDP, CMPX, CRP, SED, GLYHGB ####[facility] Hospitallowell Hqzgfszepnyq[address] [place] [address] CO222 mmol/OCjjcjd13-07YtjxlSelect Medical Specialty Hospital - Columbus SouthComment on above:Performed By: #### CDP, CMPX, CRP, SED, GLYHGB ####[facility] Hospitallowell Iviccdeevipr35[address] [place] [address] Ktphyfxuhn5.04 mg/dLNormal0.70-1.20[facility] SouthComment on above:Performed By: #### CDP, CMPX, CRP, SED, GLYHGB ####[facility] Xfrkvxcwrsxk0278 [place] [address] eGFR (non-black)mL/min/{1.73_m2}Normal>60MerLong Beach Memorial Medical CenterComment on above:Performed By: #### CDP, CMPX, CRP, SED, GLYHGB ####[facility] [address]fmuywozbv[address]26 [place] [address] Glucose mass vtgj385 mg/fSGsny23-83Gvshl [facility] Coronado HospitalComment on above:Performed By: #### CDP, CMPX, CRP, SED, GLYHGB ####Gautamy [address] [place] [address] Potassium molar conc4.1 mmol/LNormal3.7-5.3[facility] HospitalComment on above:Performed By: #### CDP, CMPX, CRP, SED, GLYHGB ####Gautamy [address] [place] [address] Qmdqoc144 mmol/KPxxcdx507-585FgrzlSelect Medical Specialty Hospital - Columbus SouthComment on above:Performed By: #### CDP, CMPX, CRP, SED, GLYHGB ####Gautamy Ebvl[address] [place] [address] Urea ddldglyi79 mg/dLNormal6-20[facility] SouthComment on above:Performed By: #### CDP, CMPX, CRP, SED, GLYHGB ####Audra [address]gixkohogf[address] [place] [address] BUN/CRE Ratio NOT REPORTEDNormal9-20[facility] SouthComment on above:Performed By: #### CDP, CMPX, CRP, SED, GLYHGB ####Gautamy [address]bpay[address] [place] [address] Staging:NOT REPORTEDNormalSelect Medical Specialty Hospital - Columbus SouthComment on above:Performed By: #### CDP, CMPX, CRP, SED, GLYHGB ####[facility] [address] [place] [address]199 CBC with Diff on 06-79-8010Cax. Basophil<0.51Tvcbcx4.00-0.20[facility] Comment on above:Performed By: #### CDP, CMPX, CRP, SED, GLYHGB ####[facility] [address] [place] [address] Abs.Neutrophil (Seg)4.97 k/uLNormal1.50-8.10[facility] SouthComment on above:Performed By: #### CDP, CMPX, CRP, SED, GLYHGB ####[address] [address] Basophils/100 WBC Auto (Bld)0 %Normal0-2MWoodland Memorial HospitalComment on above:Performed By: #### CDP, CMPX, CRP, SED, GLYHGB ####[place] [address] Eosinophils0.24 10*3/uLNormal0.00-0.44[facility] SouthComment on above:Performed By: #### CDP, CMPX, CRP, SED, GLYHGB ####[place] [address] Eosinophils/100 leukocytes3 %Normal1-4 [facility] SouthComment on above:Performed By: #### CDP, CMPX, CRP, SED, GLYHGB ####[address] [address] Erythrocyte distribution width Auto Ratio (RBC)14.8 %High11.8-14.4 [facility] SouthComment on above:Performed By: #### CDP, CMPX, CRP, SED, GLYHGB ####[address] [address] Erythrocyte morphologyANISOCYTOSIS PRESENTNormalSelect Medical Specialty Hospital - Columbus SouthComment on above:Result Comment: [address] [address] Performed By: #### CDP, CMPX, CRP, SED, GLYHGB ####[address] [address] Erythrocytes (RBC)0.0 per 100 WBCNormal0.0[facility] - [facility] SouthComment on above: Performed By: #### CDP, CMPX, CRP, SED, GLYHGB ####[address] [address] Erythrocytes (RBC)3.42 10*6/uLLow4.21-5.77[facility] SouthComment on above:Performed By: #### CDP, CMPX, CRP, SED, GLYHGB ####[address] [address] Granulocytes/100 WBC (Bld)0.19 k/uLNormal0.00-0.30[facility] SouthComment on above:Performed By: #### CDP, CMPX, CRP, SED, GLYHGB ####[place] [address] Hematocrit (HCT)29.4 % Low40.7-50.3MercMercy SouthwestComment on above:Performed By: #### CDP, CMPX, CRP, SED, GLYHGB ####[address]autam[address] [address] Hemoglobin mass conc (Bld)8.8 g/dLLow13.0-17.0[facility] SouthComment on above:Performed By: #### CDP, CMPX, CRP, SED, GLYHGB ####[place] [address] Immature granulocytes #/vol (Bld)2 %Gwwv6IgoctSelect Medical Specialty Hospital - Columbus SouthComment on above:Performed By: #### CDP, CMPX, CRP, SED, GLYHGB ####[place] [address] Wxvnmoklcca7.00 10*3/uL Normal1.10-3.70[facility] SouthComment on above:Performed By: #### CDP, CMPX, CRP, SED, GLYHGB ####[facility] [address]tdykznugyj[address] [place] [address] Lymphocytes/100 tojzonzhgb44 %Ebptpd76-42KxjwaSelect Medical Specialty Hospital - Columbus SouthComment on above:Performed By: #### CDP, CMPX, CRP, SED, GLYHGB ####[address] [address] EUN39.7 pg Lwpwps87.2-33.5[facility] SouthComment on above:Performed By: #### CDP, CMPX, CRP, SED, GLYHGB ####[address] [address] MCHC mass conc (RBC)29.9 g/iHNhzwbx57.4-34.8[facility] SouthComment on above:Performed By: #### CDP, CMPX, CRP, SED, GLYHGB ####[address] [address] KEX42.0 fL Uoktiz31.6-102.9[facility] SouthComment on above:Performed By: #### CDP, CMPX, CRP, SED, GLYHGB ####[address] [address] Mjbimyqxs5.53 10*3/uLNormal0.10-1.20[facility] SouthComment on above:Performed By: #### CDP, CMPX, CRP, SED, GLYHGB ####[address] [address] Monocytes/100 leukocytes 7 %Normal3-12[facility] SouthComment on above:Performed By: #### CDP, CMPX, CRP, SED, GLYHGB ####[address] [address] Neutrophil (Seg)63 %Swsuoe82-84Wbrhv [facility] Medical CenterComment on above:Performed By: #### CDP, CMPX, CRP, SED, GLYHGB ####[facility] Hospitallowell Qwvpvdxinxou[address] [place] [address] Platelet mean volume (PMV)9.9 fLNormal8.1-13.5[facility] SouthComment on above: Performed By: #### CDP, CMPX, CRP, SED, GLYHGB ####[facility] [address]zbpptgzcqa[address] [place] [address] Qptvpkmay857 10*3/vSAisipt614-773TinltSelect Medical Specialty Hospital - Columbus SouthComment on above:Performed By: #### CDP, CMPX, CRP, SED, GLYHGB ####[facility] Foysfcuuanqs[address] [place] [address] WBC (Leukocytes)8.0 10*3/uLNormal3.5-11.3MercMercy SouthwestComment on above:Performed By: #### CDP, CMPX, CRP, SED, GLYHGB ####[facility] [address]ythoshz[address] [place] [address] Auto Diff PerformedNOT REPORTEDNoal [facility] SouthComment on above:Performed By: #### CDP, CMPX, CRP, SED, GLYHGB ####[facility] Umgaxsblnkad[address] [place] [address] PlateletsNOT REPORTEDNormalSelect Medical Specialty Hospital - Columbus SouthComment on above:Performed By: #### CDP, CMPX, CRP, SED, GLYHGB ####[facility] [address]jvnktpob[address] [place] [address] WBC MorphologyNOT REPORTEDNoalSelect Medical Specialty Hospital - Columbus SouthComment on above:Performed By: #### CDP, CMPX, CRP, SED, GLYHGB ####[facility] [address]qjuhvj[address] [place] [address] Discharge Summaryon [id number] IP Note OR Director Search NormalSelect Medical Specialty Hospital - Columbus SouthPlan of Careon 20-64-2478RMB IP Note OR TranscriptionNormalMercy Sharp Coronado HospitalHI IP Note OR Director Search NormalSelect Medical Specialty [facility] - [facility] SouthProgress Noteon [id number] IP Note OR TranscriptionNormalMercy Sharp Coronado HospitalHI IP Note OR Director Search NormalTrihealth Mccullough-Hyde Memorial Hospitalcy Sharp Coronado HospitalHI IP Note OR TranscriptionNormalMercy Sharp Coronado HospitalHIM IP Note OR TranscriptionNormalMercy Sharp Coronado HospitalHI IP Note OR TranscriptionNormalMercy [facility] HIM IP Note OR TranscriptionNormalTrihealth Mccullough-Hyde Memorial Hospitalcy Sharp Coronado HospitalBasic Metabolic Profon 04-12-2017(cont.)NormalSelect Medical Specialty Hospital - Columbus SouthComment on above:Result Comment: Average GFR for 50-59 years old: 93 mL/min/1.73sq mChronic Kidney Disease: <60 mL/min/1.73sq mKidney failure: <15 mL/min/1.73sq meGFR calculated using average adult body mass. Additional eGFR calculator available at:http://www.[employer]/multiple_crcl_2012[place] [address] ([phone] By: #### CDP, CMPX, CRP, SED, GLYHGB ####[facility] HospitalOnehubRwgjceovbqjq[address] [place] [address] Anion gap8 mmol/LLow9-17[facility] SouthComment on above: Performed By: #### CDP, CMPX, CRP, SED, GLYHGB ####[employer] [place] [address] Calcium8.8 mg/dLNormal8.6-10.4[facility] SouthComment on above:Performed By: #### CDP, CMPX, CRP, SED, GLYHGB ####[employer] [place] [address] Fbfmhucn054 mmol/AZabehf68-468ZvztxSelect Medical Specialty Hospital - Columbus SouthComment on above:Performed By: #### CDP, CMPX, CRP, SED, GLYHGB ####Gautamy [address]vm[address]lj[address] [place] [address] EZ782 mmol/GOcttbl57-68ApdzkLong Beach Memorial Medical CenterComment on above:Performed By: #### CDP, CMPX, CRP, SED, GLYHGB ####[facility] Ccqxvbzqyfqf[address] [place] [address] Pthpuabypq0.01 mg/dL Normal0.70-1.20[facility] SouthComment on above:Performed By: #### CDP, CMPX, CRP, SED, GLYHGB ####[facility] S[address]wlfiudlff[address] [place] [address]356 eGFR (non-black)mL/min/{1.73_m2}Normal>60[facility] SouthComment on above:Performed By: #### CDP, CMPX, CRP, SED, GLYHGB ####[facility] Jocnabdjxbet[address] [place] [address] Glucose mass jrqc374 mg/oTYkmc99-91VcufdWoodland Memorial HospitalComment on above:Performed By: #### CDP, CMPX, CRP, SED, GLYHGB ####[facility] [address]htahfzijqpl[address] [place] [address] Potassium molar conc3.9 mmol/LNormal3.7-5.3MWoodland Memorial HospitalComment on above:Performed By: #### CDP, CMPX, CRP, SED, GLYHGB ####[facility] [address]ixozqxhxoi[address] [place] [address] Qaurjk872 mmol/IXldnnu507-345CurslLong Beach Memorial Medical CenterComment on above: Performed By: #### CDP, CMPX, CRP, SED, GLYHGB ####[facility] Nrceridymdry[address] [place] [address] [phone] dongtuof58 mg/dLNormal6-20[facility] SouthComment on above:Performed By: #### CDP, CMPX, CRP, SED, GLYHGB ####Audra [address] [id number]/CRE Ratio NOT REPORTEDNormal9-20[facility] SouthComment on above:Performed By: #### CDP, CMPX, CRP, SED, GLYHGB ####[address] [phone]:NOT REPORTEDNormalSelect Medical Specialty Hospital - Columbus SouthComment on above:Performed By: #### CDP, CMPX, CRP, SED, GLYHGB ####[address] [phone] with Diff on 14-62-8714Tuc. Basophil<0.22Swvpnu3.00-0.20[facility] Comment on above:Performed By: #### CDP, CMPX, CRP, SED, GLYHGB ####[address]aut[address] [address] Abs.Neutrophil (Seg)4.31 k/uLNormal1.50-8.10[facility] SouthComment on above:Performed By: #### CDP, CMPX, CRP, SED, GLYHGB ####Audra [address] [phone])[phone]/100 WBC Auto (Bld)0 %Normal0-2MercMercy SouthwestComment on above:Performed By: #### CDP, CMPX, CRP, SED, GLYHGB ####[address] [address] Eosinophils0.21 10*3/uLNormal0.00-0.44[facility] SouthComment on above:Performed By: #### CDP, CMPX, CRP, SED, GLYHGB ####[address] [address] Eosinophils/100 leukocytes3 %Normal1-4 [facility] - Columbus SouthComment on above:Performed By: #### CDP, CMPX, CRP, SED, GLYHGB ####[address] [address] Erythrocyte distribution width Auto Ratio (RBC)14.7 %High11.8-14.4 [facility] SouthComment on above:Performed By: #### CDP, CMPX, CRP, SED, GLYHGB ####[address] [address] Erythrocyte morphologyANISOCYTOSIS PRESENTNormalMerLong Beach Memorial Medical CenterComment on above:Result Comment: [address] [address] Performed By: #### CDP, CMPX, CRP, SED, GLYHGB ####[place] [address] Erythrocytes (RBC)3.45 10*6/uLLow4.21-5.77[facility] SouthComment on above: Performed By: #### CDP, CMPX, CRP, SED, GLYHGB ####[address] [address] Granulocytes/100 WBC (Bld)0.22 k/uLNormal 0.00-0.30[facility] SouthComment on above:Performed By: #### CDP, CMPX, CRP, SED, GLYHGB ####[place] [address] Hematocrit (HCT)28.9 %Low40.7-50.3MWoodland Memorial HospitalComment on above:Performed By: #### CDP, CMPX, CRP, SED, GLYHGB ####[facility] [address] [place] [address] Hemoglobin mass conc (Bld)8.9 g/dLLow13.0-17.0[facility] SouthComment on above: Performed By: #### CDP, CMPX, CRP, SED, GLYHGB ####[address] [address] Immature granulocytes #/vol (Bld)3 %Afdy6AlzrwSelect Medical Specialty Hospital - Columbus SouthComment on above:Performed By: #### CDP, CMPX, CRP, SED, GLYHGB ####[address] [address] Lymphocytes1.83 10*3/uLNormal1.10-3.70[facility] SouthComment on above:Performed By: #### CDP, CMPX, CRP, SED, GLYHGB ####[address] [address] Lymphocytes/100 jtudrbmloc40 %Wvalow80-09 [facility] SouthComment on above:Performed By: #### CDP, CMPX, CRP, SED, GLYHGB ####[address] [address] MCH25.8 fbTtigzp01.2-33.5[facility] SouthComment on above:Performed By: #### CDP, CMPX, CRP, SED, GLYHGB ####[address] [address] MCHC mass conc (RBC)30.8 g/dLNormal 28.4-34.8[facility] SouthComment on above:Performed By: #### CDP, CMPX, CRP, SED, GLYHGB ####[address] [address] DTQ41.8 qZTahsld15.6-102.9[facility] Comment on above:Performed By: #### CDP, CMPX, CRP, SED, GLYHGB ####[address] [address] Nlftwqror0.58 10*3/uL Normal0.10-1.20[facility] SouthComment on above:Performed By: #### CDP, CMPX, CRP, SED, GLYHGB ####[address] [address] Monocytes/100 leukocytes8 %Normal3-12[facility] SouthComment on above:Performed By: #### CDP, CMPX, CRP, SED, GLYHGB ####[address] [address] Neutrophil (Seg)60 % Jvoukg87-96XurczSelect Medical Specialty Hospital - Columbus SouthComment on above:Performed By: #### CDP, CMPX, CRP, SED, GLYHGB ####[address] [address] Platelet mean volume (PMV)9.3 fLNormal8.1-13.5[facility] SouthComment on above:Performed By: #### CDP, CMPX, CRP, SED, GLYHGB ####[place] [address] Xzwjbxusx082 10*3/uCHnrhrr463-355MjvhfSelect Medical Specialty Hospital - Columbus SouthComment on above:Performed By: #### CDP, CMPX, CRP, SED, GLYHGB ####[place] [address] WBC (Leukocytes)7.2 10*3/uLNormal3.5-11.3 [facility] SouthComment on above:Performed By: #### CDP, CMPX, CRP, SED, GLYHGB ####Audra [address] [place] [address] Auto Diff PerformedNOT REPORTEDTrinity Health System West CampusComment on above:Performed By: #### CDP, CMPX, CRP, SED, GLYHGB ####Gautamy [address] [place] [address] PlateletsNOT REPORTED [facility] CampusComment on above:Performed By: #### CDP, CMPX, CRP, SED, GLYHGB ####Gautamy [address] [place] [address] WBC MorphologyNOT REPORTEDTrinity Health System West Campus Comment on above:Performed By: #### CDP, CMPX, CRP, SED, GLYHGB ####Audra [address] [place] [address] Cult,Aerobe/Anaerobeon [id number] Description .TISSUE RIGHT LATERAL ANKLE POST IRRIGATIONSpecial Requests NOT REPORTEDDirectExam NO NEUTROPHILS SEEN RARE GRAM POSITIVE COCCI IN PAIRS Culture METHICILLIN RESISTANT STAPHYLOCOCCUS AUREUS LIGHT GROWTH STREPTOCOCCI, BETA HEMOLYTIC GROUP C SCANT GROWTH DIPHTHEROIDS LIGHT GROWTHNO ANAEROBIC ORGANISMS ISOLATED AT 5 DAYS Report Status FINAL 04/15/2017SUSCEPTIBILITYOrganism MRSAMethod MICPenicillin >=0.5 RESISTANTCefoxitin Screen NOT REPORTEDCiprofloxacin NOT REPORTEDClindamycin <=0.25 SUSCEPTIBLEErythromycin <=0.25 SUSCEPTIBLEGentamicin <=0.5 SUSCEPTIBLEInduced Clind Resist NOT REPORTEDLevofloxacin 4 INTERMEDIATELinezolid NOT REPORTEDMoxifloxacin NOT REPORTEDNitrofurantoin NOT REPORTEDOxacillin >=4 RESISTANTSynercid NOT REPORTEDRifampin NOT REPORTEDTetracycline <=1 SUSCEPTIBLETigecycline NOT REPORTEDTrimethoprim/Sulfa <=10 SUSCEPTIBLEVancomycin 1 SUSCEPTIBLENoSalem Regional Medical CenterComment on above:Performed By: #### AANC ####Gautamy [address] [place] [address] Plan of Careon [id number] IP Note OR TranscriptionNormalMercy Sharp Coronado HospitalHIM IP Note OR TranscriptionNormalMer[facility] Hospital HIM IP Note OR TranscriptionNormalMercy Sharp Coronado HospitalHIM IP Note OR TranscriptionNormalMercy Sharp Coronado HospitalHI IP Note OR Director Search NormalSelect [facility] Specialty Hospital - [facility] SouthProgress Noteon [id number] IP Note OR TranscriptionNormalMercy Sharp Coronado HospitalHIM IP Note OR Director Search NormalTrihealth Mccullough-Hyde Memorial Hospitalcy Sharp Coronado HospitalHI IP Note OR TranscriptionNormalMercy Sharp Coronado HospitalHI IP Note OR TranscriptionNormalMercy Sharp Coronado HospitalHI IP Note OR TranscriptionNormalMer[facility] HIM IP Note OR TranscriptionNormalTrihealth Mccullough-Hyde Memorial Hospitalcy Sharp Coronado HospitalBasic Metabolic Profon 04-11-2017(cont.)NormalSelect Medical Special[facility] Hospital - Columbus SouthComment on above:Result Comment: Average GFR for 50-59 years old: 93 mL/min/1.73sq mChronic Kidney Disease: <60 mL/min/1.73sq mKidney failure: <15 mL/min/1.73sq meGFR calculated using average adult body mass. Additional eGFR calculator available at:http://www.[employer]/multiple_crcl_2012[place] [address] ([phone] By: #### CDP, CMPX, CRP, SED, GLYHGB ####[facility] [address] [place] [address] Anion gap14 mmol/LNormal9-17[facility] SouthComment on above: Performed By: #### CDP, CMPX, CRP, SED, GLYHGB ####Audra [address] [place] [address] Calcium8.2 mg/dLLow8.6-10.4[facility] SouthComment on above:Performed By: #### CDP, CMPX, CRP, SED, GLYHGB ####[facility] [address] [place] [address] Jyasveun401 mmol/TKdtdmm58-371FhxshSelect Medical Specialty Hospital - Columbus SouthComment on above:Performed By: #### CDP, CMPX, CRP, SED, GLYHGB ####[facility] [address] [place] [address] NZ[address] mmol/ZIqszrt73-30VsltkSelect Medical Specialty Hospital - Columbus SouthComment on above:Performed By: #### CDP, CMPX, CRP, SED, GLYHGB ####[facility] [address] [place] [address] Hfldqfeplt7.16 mg/dL Normal0.70-1.20[facility] SouthComment on above:Performed By: #### CDP, CMPX, CRP, SED, GLYHGB ####[facility] [address] [place] [address] eGFR (non-black)mL/min/{1.73_m2}Normal>60[facility] SouthComment on above:Performed By: #### CDP, CMPX, CRP, SED, GLYHGB ####[facility] [address] [place] [address] Glucose mass xiqu209 mg/lRXcqm28-90IyyapWoodland Memorial HospitalComment on above:Performed By: #### CDP, CMPX, CRP, SED, GLYHGB ####[facility] [address] [place] [address] Potassium molar conc4.0 mmol/LNormal3.7-5.3MWoodland Memorial HospitalComment on above:Performed By: #### CDP, CMPX, CRP, SED, GLYHGB ####[facility] [address]foppc[address] [place] [address] Dayxou665 mmol/RDwzdhz019-770EcdonSelect Medical Specialty Hospital - Columbus SouthComment on above: Performed By: #### CDP, CMPX, CRP, SED, GLYHGB ####[address] [address] Urea aupwytjh97 mg/dLNormal6-20[facility] SouthComment on above:Performed By: #### CDP, CMPX, CRP, SED, GLYHGB ####[place] [address] BUN/CRE Ratio NOT REPORTEDNormal9-20[facility] SouthComment on above:Performed By: #### CDP, CMPX, CRP, SED, GLYHGB ####[place] [address] Staging:NOT REPORTEDNormalSelect Medical Specialty Hospital - [facility] SouthComment on above:Performed By: #### CDP, CMPX, CRP, SED, GLYHGB ####[place] [address] M-Joifqcux Proteinon 04-11-2017C reactive protein (CRP)55.5 mg/LHigh0.0-5.0[facility] SouthComment on above:Result Comment: [place] [address] Performed By: #### CDP, CMPX, CRP, SED, GLYHGB ####[place] [address] CBC with Diffon 02-84-4478Rlb. Basophil<0.84Terfev5.00-0.20[facility] SouthComment on above:Performed By: #### CDP, CMPX, CRP, SED, GLYHGB ####[place] [address] Abs.Neutrophil (Seg)5.04 k/uLNormal1.50-8.10[facility] SouthComment on above:Performed By: #### CDP, CMPX, CRP, SED, GLYHGB ####[address] [address] Basophils/100 WBC Auto (Bld)0 %Normal0-2MWoodland Memorial HospitalComment on above:Performed By: #### CDP, CMPX, CRP, SED, GLYHGB ####[address] [address] Eosinophils0.24 10*3/uLNormal0.00-0.44[facility] SouthComment on above:Performed By: #### CDP, CMPX, CRP, SED, GLYHGB ####[address] [address] Eosinophils/100 leukocytes3 %Normal1-4 [facility] SouthComment on above:Performed By: #### CDP, CMPX, CRP, SED, GLYHGB ####[address] [address] Erythrocyte distribution width Auto Ratio (RBC)14.8 %High11.8-14.4 [facility] SouthComment on above:Performed By: #### CDP, CMPX, CRP, SED, GLYHGB ####[address] [address] Erythrocyte morphologyANISOCYTOSIS PRESENTNormalSelect Medical Specialty Hospital - Columbus SouthComment on above:Result Comment: [address] [address] Performed By: #### CDP, CMPX, CRP, SED, GLYHGB ####[address] [address] Erythrocytes (RBC)3.36 10*6/uLLow4.21-5.77[facility] SouthComment on above: Performed By: #### CDP, CMPX, CRP, SED, GLYHGB ####[address] [address] Granulocytes/100 WBC (Bld)0.09 k/uLNormal 0.00-0.30[facility] SouthComment on above:Performed By: #### CDP, CMPX, CRP, SED, GLYHGB ####[address] [address] Hematocrit (HCT)28.8 %Low40.7-50.3MWoodland Memorial HospitalComment on above:Performed By: #### CDP, CMPX, CRP, SED, GLYHGB ####[address] [address] Hemoglobin mass conc (Bld)8.8 g/dLLow13.0-17.0[facility] SouthComment on above: Performed By: #### CDP, CMPX, CRP, SED, GLYHGB ####[place] [address] Immature granulocytes #/vol (Bld)1 %Ovmt5NwcarSelect Medical Specialty Hospital - Columbus SouthComment on above:Performed By: #### CDP, CMPX, CRP, SED, GLYHGB ####[address] [address] Lymphocytes1.73 10*3/uLNormal1.10-3.70[facility] SouthComment on above:Performed By: #### CDP, CMPX, CRP, SED, GLYHGB ####[address] [address] Lymphocytes/100 stzwryntjf76 %Wif98-43 [facility] SouthComment on above:Performed By: #### CDP, CMPX, CRP, SED, GLYHGB ####[address] [address] MCH26.2 aaJfapov09.2-33.5[facility] SouthComment on above:Performed By: #### CDP, CMPX, CRP, SED, GLYHGB ####Audra [address] [place] [address] MCHC mass conc (RBC)30.6 g/dLNormal 28.4-34.8[facility] SouthComment on above:Performed By: #### CDP, CMPX, CRP, SED, GLYHGB ####Audra [address] [place] [address] YUP75.7 oVNwyiry56.6-102.9[facility] Comment on above:Performed By: #### CDP, CMPX, CRP, SED, GLYHGB ####[place] [address] Xcvyusdxr7.56 10*3/uL Normal0.10-1.20[facility] SouthComment on above:Performed By: #### CDP, CMPX, CRP, SED, GLYHGB ####[address] [address] Monocytes/100 leukocytes7 %Normal3-12[facility] SouthComment on above:Performed By: #### CDP, CMPX, CRP, SED, GLYHGB ####Audra [address] [address] Neutrophil (Seg)66 %High 36-65[facility] SouthComment on above:Performed By: #### CDP, CMPX, CRP, SED, GLYHGB ####[facility] Hospitallowell [address] [address] Platelet mean volume (PMV)9.9 fLNormal8.1-13.5[facility] SouthComment on above:Performed By: #### CDP, CMPX, CRP, SED, GLYHGB ####[address] [id number])[phone] 10*3/wGBmprhx048-989NmxpaLong Beach Memorial Medical CenterComment on above:Performed By: #### CDP, CMPX, CRP, SED, GLYHGB ####Audra [address] [place] [address] WBC (Leukocytes)7.7 10*3/uLNormal3.5-11.3[facility] HospitalComment on above:Performed By: #### CDP, CMPX, CRP, SED, GLYHGB ####uAdra [address] [place] [address] Auto Diff PerformedNOT Vibra Specialty HospitalComment on above:Performed By: #### CDP, CMPX, CRP, SED, GLYHGB ####[facility] [address] [place] [address] [phone] [facility] Specialty HospitalComment on above:Performed By: #### CDP, CMPX, CRP, SED, GLYHGB ####Audra [address] [place] [address] [phone] MorphologyNOT [facility] Specialty HospitalComment on above: Performed By: #### CDP, CMPX, CRP, SED, GLYHGB ####[facility] [address] [place] [address] [phone] A1Con 06-66-6893Zxhbfzv mass emuj227 mg/dLTrinity Health System West CampusComment on above:Result Comment: The ADA and AACC recommend providing the estimated average glucose result to permit better patient understanding of their HBA1c result.[address] [address] [phone] By: #### CDP, CMPX, CRP, SED, GLYHGB ####[address] [address] Hemoglobin A1c/Hemoglobin.total mass fraction (Bld)12.6 %High4.0-6.0[facility] SouthComment on above:Performed By: #### CDP, CMPX, CRP, SED, GLYHGB ####[address] [place], [place] [address] Plan of Careon [id number] IP Note OR TranscriptionNormalMercy Sharp Coronado HospitalHI IP Note OR TranscriptionNormalMercy Sharp Coronado HospitalHI IP Note OR TranscriptionNormalMerLong Beach Memorial Medical CenterHI IP Note OR TranscriptionNormalSelect [facility] - [facility] SouthProgress Noteon [id number] IP Note OR TranscriptionNormalMerLong Beach Memorial Medical CenterHI IP Note OR TranscriptionNormalMerLong Beach Memorial Medical CenterHI IP Note OR Director Search NormalMercy Sharp Coronado HospitalHI IP Note OR TranscriptionNormalSelect Medical Specialty Hospital - [facility] SouthConsulton [id number] IP Note OR TranscriptionNormal [facility] SouthCult,Urine,Cathon [id number],Urine,Cath Specimen Description .CATHETERIZED URINE Special Requests NOT REPORTED Culture PRESUMPTIVE ID: LEO ALBICANS >[id number] CFU/ML Report Status FINAL 04/10/2017[facility] CampusComment on above:Performed By: #### CDP, CMPX, CRP, SED, GLYHGB ####[address] [place] [address] Influenza A + B, PCRon 04-10-2017 Influenza A + B, PCRSpecimen Description .NASOPHARYNGEAL SWABSpecial Requests NOT REPORTEDDirect Exam NEGATIVE: Influenza A and B RNA not detected by nucleic acid amplification. The results obtained should be interpreted in conjunction with clinical findings and other laboratory markers. The performance characterisitics of this molecular test were validated by the molecular microbiology department of [facility] [employer]. Report Status FINAL 04/10/2017[facility] System West CampusComment on above:Performed By: #### CDP, CMPX, CRP, SED, GLYHGB ####[address] [place] [address] OPERATIVE REPORTon [id number] REPORTUC HEALTH [address] [place] [address] OPERATIVE REPORTPATIENT NAME: GANGA STINSON : 1960MED REC NO: [id number] ROOM: [address] [place], [place] [address]OUNT NO: [id number] ADMIT DATE: 04/09/2017PROVIDER: William Foster- JudgeDATE OF PROCEDURE: 04/10/2016SURGEON: William Jimenez, DPMASSISTANT: Benito [...] this medial heel ulceration is an enlarged well- organized andwell-adhered eschar measuring 3.5 cm x 1.7 [...] for recovery. The patient has a primary typewriter aligner, Dr. Sanders, whom I have set outa telephone communication with. The department of Infectious Disease,Internal Medicine, and specialty medicine services will provide care duringthe inpatient admission. Irwin return to the care of Dr. Min [facility] [place], upon discharge.INDICATIONS FOR OPERATION: This is [...] chronic nonhealing ulcerations and infection now, which haveworsenedto a degree to prompt admission. The patient is on IV antibioticsas prescribed by the department ofInfectious Disease and podiatryconsultation is requested for surgical debridement. I have discussedtheabove mentioned procedures and their associated risks and [...] patient was brought into thesurgical suite and placedon the operating table in the supine position. All appropriate bolsters and paddings were applied, doing it about thepatient as necessary. The above mentioned anesthetic agent was deliveredin a posterior tibial block and in a lateral ankle block to provideregional anesthesia. General anesthesia wasprovided by the department ofanesthesia without complication. Sterile [...] this setting.Copious irrigation was completed with the benefitof 3 liters of normalsaline with pulsatile lavage. [...] to the underlying tissues was stable-appearing and didnotwarrant excision. This eschar measured 3.5 cm x 1.7 cm and isapproximately 0.2 cm in thickness. Deep palpation and manipulationexpressed purulence from the most distal-medial aspect of the heel. Themost proximal arch area could be palpated and would express hemorrhagicpurulent material in small amounts. A linear incision would be made alongthe zone of transition between the medial skin and theplantar skin andthis incision was proximally 6 cm in length. Incision and drainage herewould allow hemorrhagic purulence to be evacuated and healthy bleedingpotential was realized here. The periosteum and deep fascia over thecalcaneus, as well as the adjacent subcutaneous tissues remained intact. Th ere was no exposed bone. Subcutaneous fat appears [...] wound would bemildly compressed from plantar to dorsaland the wound edges would coaptnicely without tension. The sterile field would be refreshed and deep tissue cultures would be obtained. These would be submitted tomicrobiology and a dressing then would be applied to the medial heel usingbacitracin ointment and a sterile nonadherent dressing. With the footpositioned at 90 degrees to the leg, a sterile compressive dressing wouldbe applied and a modified Schafer compression dressing would be applied usingmultiple layers of elasticized cast padding alt ernating with Olga wrapcompression layers x2. Pedal pulses, neurovascular status, and vital signsremained unchanged from preoperative findings. The patient, havingtolerated the procedure and anesthesia well, would be taken to the floorfor final recovery. He would follow up with his usual typewriter aligner on anoutpatient basis. The departments of Internal Medicine and InfectiousDisease will guide our care in the interim. Cultures should be availablewith sensitivities in approximately 72 hours and consider dischargeplanning then.WILLIAM FOSTER-JUDGED: 04/10/2017 15:31:53 MS/V_SS ROR_IJob#: [id number] Doc#: [id number]: Yakov Oliver Venus Department of Infectious Disease Internal MedicineNormSouthwest General Health CenterPlan of Careon [id number] IP Note OR TranscriptionNormSouthwest General Health CenterHIM IP Note OR TranscriptionTrinity Health System West CampusProgress Noteon [id number] IP Note OR TranscriptionTrinity Health System West CampusHI IP Note OR TranscriptionTrinity Health System West CampusXR ANKLE RIGHT STANDARDon [id number] ANKLE RIGHT STANDARDEXAMINATION:3 VIEWS OF THE RIGHT ANKLE04/09/2017 10:04 pmCOMPARISON:04/09/2017 MRI right footHISTORY: ORDERING SYSTEM PROVIDED HISTORY: osteomyelitisTECHNOLOGIST PROVIDED HISTORY:Reason for exam:->osteomyelitisFINDINGS:No fracture or dislocation is identified. There is a cortical thinning andirregularity of the lateral cortex of the lateral malleolus with adjacentsoft tissue edema consistent with cellulitis and osteomyelitis. Large skinulceration is present in this location. Large plantar calcaneal spur.IMPRESSION: Large soft tissue ulcer overlying the lateral malleolus with underlyingosseous changes consistent with cellulitis and osteomyelitis.Interpreted by:SAMMI Bakerigned by:Roberto Carlos Cavazos MD04/09/17inal resultNormalSelect Medical Specialty Hospital - Columbus SouthC-Reactive Proteinon 04-09-2017C reactive protein (CRP)114.3 mg/LHigh0.0-5.0MerLong Beach Memorial Medical CenterComment on above:Result Comment: [address] [place], [place] [id number] [phone] By: #### CDP, CMPX, CRP, SED, GLYHGB ####[address] [place] [address] CBC with Diff on 24-72-7363Hmv. Basophil<0.40Ftcedc6.00-0.20[facility] Comment on above:Performed By: #### CDP, CMPX, CRP, SED, GLYHGB ####[address] [address] Abs.Neutrophil (Seg)5.95 k/uLNormal1.50-8.10[facility] SouthComment on above:Performed By: #### CDP, CMPX, CRP, SED, GLYHGB ####[address] [address] Basophils/100 WBC Auto (Bld)0 %Normal0-2MercMercy SouthwestComment on above:Performed By: #### CDP, CMPX, CRP, SED, GLYHGB ####[place] [address] Eosinophils0.11 10*3/uLNormal0.00-0.44[facility] SouthComment on above:Performed By: #### CDP, CMPX, CRP, SED, GLYHGB ####[address] [address] Eosinophils/100 leukocytes1 %Normal1-4 [facility] SouthComment on above:Performed By: #### CDP, CMPX, CRP, SED, GLYHGB ####[address] [address] Erythrocyte distribution width Auto Ratio (RBC)15.0 %High11.8-14.4 [facility] SouthComment on above:Performed By: #### CDP, CMPX, CRP, SED, GLYHGB ####[address] [address] Erythrocyte morphologyANISOCYTOSIS PRESENTNormalSelect Medical Specialty Hospital - Columbus SouthComment on above:Result Comment: Talkable [address] [place] [phone] By: #### CDP, CMPX, CRP, SED, GLYHGB ####[address] [address] Erythrocytes (RBC)3.50 10*6/uLLow4.21-5.77[facility] SouthComment on above: Performed By: #### CDP, CMPX, CRP, SED, GLYHGB ####[facility] [address] [place] [address] Granulocytes/100 WBC (Bld)0.09 k/uLNormal 0.00-0.30[facility] SouthComment on above:Performed By: #### CDP, CMPX, CRP, SED, GLYHGB ####[place] [address] Hematocrit (HCT)29.9 %Low40.7-50.3MercMercy SouthwestComment on above:Performed By: #### CDP, CMPX, CRP, SED, GLYHGB ####[address] [address] Hemoglobin mass conc (Bld)9.0 g/dLLow13.0-17.0[facility] Columbus SouthComment on above: Performed By: #### CDP, CMPX, CRP, SED, GLYHGB ####[address] [address] Immature granulocytes #/vol (Bld)1 %Uwnn3UgelwSelect Medical Specialty Hospital - Columbus SouthComment on above:Performed By: #### CDP, CMPX, CRP, SED, GLYHGB ####[address] [address] Lymphocytes1.60 10*3/uLNormal1.10-3.70[facility] SouthComment on above:Performed By: #### CDP, CMPX, CRP, SED, GLYHGB ####Gautam L[address] [place] [address] Lymphocytes/100 %Hml37-15 [facility] SouthComment on above:Performed By: #### CDP, CMPX, CRP, SED, GLYHGB ####[address] [address] MCH25.7 zdKjqoog75.2-33.5[facility] - [place] SouthComment on above:Performed By: #### CDP, CMPX, CRP, SED, GLYHGB ####[facility] Hospitallowell [address] [address] MCHC mass conc (RBC)30.1 g/dLNormal 28.4-34.8[facility] [place] SouthComment on above:Performed By: #### CDP, CMPX, CRP, SED, GLYHGB ####[address] [address] SGW24.4 iYQksisy86.6-102.9[facility] [place] [facility] Comment on above:Performed By: #### CDP, CMPX, CRP, SED, GLYHGB ####[address] [address] Msoveixcc4.53 10*3/uL Normal0.10-1.20[facility] [place] SouthComment on above:Performed By: #### CDP, CMPX, CRP, SED, GLYHGB ####[address] [address] Monocytes/100 leukocytes6 %Normal3-12[facility] [place] SouthComment on above:Performed By: #### CDP, CMPX, CRP, SED, GLYHGB ####[address] [address] Neutrophil (Seg)73 %High 36-65[facility] [place] SouthComment on above:Performed By: #### CDP, CMPX, CRP, SED, GLYHGB ####Audra Nk[address] [place] [address] Platelet mean volume (PMV)9.6 fLNormal8.1-13.5MerLong Beach Memorial Medical CenterComment on above:Performed By: #### CDP, CMPX, CRP, SED, GLYHGB ####Gautamy Mrzhsenxeioo[address] [place] [phone] 10*3/hPAfkajh002-828MeakaLong Beach Memorial Medical CenterComment on above:Performed By: #### CDP, CMPX, CRP, SED, GLYHGB ####Audra Ulealtfftqqa[address] [place] [address] WBC (Leukocytes)8.3 10*3/uLNormal3.5-11.3[facility] Coronado HospitalComment on above:Performed By: #### CDP, CMPX, CRP, SED, GLYHGB ####[facility] HospitalOnehubNbdypzthqzzj3557[address] [place] [address] Auto Diff PerformedNOT REPORTEDNormalSelect Medical Specialty Hospital - [place] SouthComment on above:Performed By: #### CDP, CMPX, CRP, SED, GLYHGB ####Gautamy Evfbtrorhhbj[address] [place] [address] PlateletsNOT REPORTEDNormalSelect Medical Specialty Hospital - [place] SouthComment on above:Performed By: #### CDP, CMPX, CRP, SED, GLYHGB ####[facility]cy Owwxvmaiirwb[address] [place] [address] WBC MorphologyNOT REPORTEDNormalSelect Medical Specialty Hospital - Columbus SouthComment on above: Performed By: #### CDP, CMPX, CRP, SED, GLYHGB ####[facility] Mtlbnngqriun[address] [place] [address] Comp Metabolic Pr/rfx MGon 04-09-2017(cont.) NormalSelect Medical Specialty Hospital - Columbus SouthComment on above:Result Comment: Average GFR for 50-59 years old: 93 mL/min/1.73sq mChronic Kidney Disease: <60 mL /min/1.73sq mKidney failure: <15 mL/min/1.73sq meGFR calculated using average adult body mass. Additional eGFR calculator available at:http://www.[employer]/multiple_crcl_2012.htm[address] [address] [phone] By: #### CDP, CMPX, CRP, SED, GLYHGB ####[facility] Hospitaly Vmhgdteemldu128[address] [place] [address] Alanine aminotransferase (ALT)9 U/LNormal5-41[facility] [place] SouthComment on above:Performed By: #### CDP, CMPX, CRP, SED, GLYHGB ####[facility]y Dxwwbnmyovce[address] [place] [phone] g/dLLow3.5-5.2MWoodland Memorial HospitalComment on above:Performed By: #### CDP, CMPX, CRP, SED, GLYHGB ####[facility] Slvilmiyhdwd2[address] [place] [address] Albumin/Globulin Ratio0.7 {ratio}Low1.0-2.5[facility] [place] [facility] Comment on above:Performed By: #### CDP, CMPX, CRP, SED, GLYHGB ####[facility] Fpzbabnnalhy[address] [place] [address] Alkaline Phos57 U/L Yaoken16-053VhhjcSelect Medical Specialty Hospital - Columbus SouthComment on above:Performed By: #### CDP, CMPX, CRP, SED, GLYHGB ####[facility] HospitalOnehubXgjarbbshtxt645[address] [place] [address] Anion gap13 mmol/LNormal9-17[facility] [place] [facility] Comment on above:Performed By: #### CDP, CMPX, CRP, SED, GLYHGB ####Gautamy [address] [place] [address] Aspartate aminotransferase (AST)9 U/LNormal<40[facility] [place] SouthComment on above:Performed By: #### CDP, CMPX, CRP, SED, GLYHGB ####[facility]y [address]kegwtbwknav77[address] [place] [address] Bilirubin Ql (U)0.26 mg/dLLow0.3-1.2MWoodland Memorial HospitalComment on above:Performed By: #### CDP, CMPX, CRP, SED, GLYHGB ####Audra Kxwfjwhynqlt[address] [place] [address] Calcium8.4 mg/dLLow8.6-10.4[facility] [place] SouthComment on above: Performed By: #### CDP, CMPX, CRP, SED, GLYHGB ####[facility]y Dlvbzavjatcp7830 [place] [address] Msmfvfne04 mmol/RVjihpa64-481QkapxSelect Medical Specialty Hospital - Columbus SouthComment on above:Performed By: #### CDP, CMPX, CRP, SED, GLYHGB ####[facility]y Pyykkmhdexcx8537 [place] [address] KQ976 mmol/L Inxqpt96-74WsoztSelect Medical Specialty Hospital - Columbus SouthComment on above:Performed By: #### CDP, CMPX, CRP, SED, GLYHGB ####[facility] Ovkvntektjvc5[address] [place] [address] Ngnrornfnt0.13 mg/dLNormal0.70-1.20[facility] [place] SouthComment on above:Performed By: #### CDP, CMPX, CRP, SED, GLYHGB ####[facility]y Rfkexzzyjlxg[address] [place] [address] eGFR (non-black) mL/min/{1.73_m2}Normal>60[facility] [place] SouthComment on above: Performed By: #### CDP, CMPX, CRP, SED, GLYHGB ####[facility]y Widbdkbaaggm0835 [place] [address] Glucose mass fqsf751 mg/wHMwjk76-11RkgzrWoodland Memorial HospitalComment on above:Performed By: #### CDP, CMPX, CRP, SED, GLYHGB ####[facility]y Niauhbqoxbpd4319 [place] [address] Potassium molar conc4.3 mmol/LNormal3.7-5.3MWoodland Memorial Hospital Comment on above:Performed By: #### CDP, CMPX, CRP, SED, GLYHGB ####[facility] Djyoebrkrcfk[address] [place] [address] Hrrtykb2.0 g/dLNormal 6.4-8.3MWoodland Memorial HospitalComment on above:Performed By: #### CDP, CMPX, CRP, SED, GLYHGB ####[facility] Wsqfgigkfldn[address] [place] [address] Sodium133 mmol/LRbe851-755NsgpsSelect Medical Specialty Hospital - Columbus SouthComment on above:Performed By: #### CDP, CMPX, CRP, SED, GLYHGB ####[facility]y Ufclxjsozguv[address] [place], [place] [address] Urea othfusvf94 mg/dL High6-20[facility] [place] SouthComment on above:Performed By: #### CDP, CMPX, CRP, SED, GLYHGB ####[employer] Mysjveiqhtys[address] [place] [address] BUN/CRE RatioNOT REPORTEDNormal9-20[facility] [place] [facility] Comment on above:Performed By: #### CDP, CMPX, CRP, SED, GLYHGB ####[employer]onicslowell Hpmaqikgumqu5736 [place] [address] Staging:NOT REPORTED NormalSelect Medical Specialty Hospital - Columbus SouthComment on above:Performed By: #### CDP, CMPX, CRP, SED, GLYHGB ####Audra [address] [place] [address] Consulton [id number] IP Note OR TranscriptionNormalSelect Medical Specialty Hospital - [place] SouthHI IP Note OR TranscriptionNormSouthwest General Health CenterHI IP Note OR TranscriptionNoSalem Regional Medical Center Flu A/B Ag Detectionon [id number] A/B Ag DetectionSpecimen Description .NASOPHARYNGEAL SWABSpecial Requests NOT REPORTEDDirect Exam PRESUMPTIVE NEGATI VE for Influenza A + B antigens. PCR testing to confirm this result is available upon request. Specimen will be saved in the laboratory for 7 days. Please call [phone] if PCR testing is indicated. Report Status FINAL 04/09/2017[facility] Charles HospitalComment on above:Performed By: #### CDP, CMPX, CRP, SED, GLYHGB ####Audra Egwfcehtddkv6[address] [place] [address] History and Physicalon [id number] IP Note OR TranscriptionSt. Charles HospitalMRI FOOT RIGHT W WO CONTRASTon [id number] FOOT RIGHT W WO CONTRASTEXAMINATION:MRI OF THE RIGHT FOOT WITHOUT AND WITH CONTRAST, 04/09/2017 7:35 PMTECHNIQUE:Multiplanarmultisequence MRI of the right hindfoot was performed without andwith the administration of intravenous contrast.COMPARISON:Radiographs January 07, 2017HISTORY:ORDERING SYSTEM PROVIDED HISTORY: OSTEOMYELITIS, [...] type enhancement within the softtissues with a focalarea of decreased enhancement likely devascularizedtissue. Minimal enhancement is suspected along the cortex of the calcaneusunderlying the area of soft tissue ulceration.Additional focal area of ulceration is seen along the lateral malleolus.Changes extend to the underlying bone. Minimal T1 weighted signal changesare seen in this area. On postcontrast imaging there is mild increase inenhancementwithin the lateral malleolus with surrounding reactive typeenhancement within the soft tissues.The distal Achilles tendon appears intact. Anterior extensor tendons areintact. Medial flexor tendons are intact. Lateral flexor tendons are intact.Diffuse muscle atrophy is seen. Degenerative changes areseen within themidfoot. Mild muscle edema is seen, likely reactive.IMPRESSION: Large area of soft tissue ulceration extending to the calcaneus. Earlyosteomyelitis is suspected despite a lack of definitive precontrast M6fjthwhjy changes.Large ulcer overlying the lateral malleolus with underlying osteomyelitis.Interpreted by:SAMMI Tellezigned by:Jesusita Mock MD04/09/17inal resultNormalMerLong Beach Memorial Medical CenterOp Noteon [id number] IP Note OR TranscriptionNormal [facility] [place] SouthPlan of Careon [id number] IP Note OR TranscriptionNormalMerLong Beach Memorial Medical CenterHI IP Note OR Director Search NormalSelect Medical Specialty Hospital - [place] SouthProgress Noteon [id number] IP Note OR TranscriptionNormalMerLong Beach Memorial Medical CenterHI IP Note OR Director Search NormalSelect Medical Specialty Hospital - [place] SouthHI IP Note OR TranscriptionNormalSelect Medical Specialty Hospital - [place] SouthRSV Ag Detectionon [id number] Ag DetectionSpecimen Description .NASOPHARYNGEAL SWABSpecial Requests NOT REPORTEDDirect Exam Presumptive negative for the presence of RSV antigen. PCR testing to confirm this result is available upon request. Specimen will be saved in the laboratory for 7 days. Please call [phone] if PCR testing is indicated. Report Status FINAL 04/09/2017[facility] West CampusComment on above:Performed By: #### CDP, CMPX, CRP, SED, GLYHGB ####[facility] [place] [address] Sedimentation Rateon [id number] Rate80 mmHigh0-10[facility] [place] SouthComment on above:Result Comment: [address] [place], [place] [id number] ([phone] Performed By: #### CDP, CMPX, CRP, SED, GLYHGB ####[employer] [address]vgkqc[address] [place] [address] XR FOOT RIGHT STANDARDon [id number] FOOT RIGHT STANDARDEXAMINATION:3 VIEWS OF THE RIGHT FOOT, 04/09/2017 9:07 PMCOMPARISON:January 07, 2017HISTORY:ORDERINGSYSTEM PROVIDED HISTORY: non healing ulcers. R/O osteomyelitisTECHNOLOGIST PROVIDED HISTORY:Reason for exam:- >non healing ulcers. R/O osteomyelitisFINDINGS:Prior 5th transmetatarsal amputation. Noacute fracture. Diffuseosteopenia. Moderate narrowing of the 1st metatarsophalangeal joint withsmall osteophytes.Mild diffuse soft tissue swelling. More focal area of ulceration is seenadjacent to the lateral malleolus. There is suggestion of mild irregularityalong the lateral malleolus.IMPRESSION:Focal ulcer adjacent to the lateral malleolus with suspected underlyingosteomyelitis. MRI of the hindfoot/ankle may be helpful for more definitivecharacterization.Interpreted by:SAMMI Tellezigned by:Jesusita Mock MD04/09/17inal resultNormalMerLong Beach Memorial Medical Center Vital Signs Date TimeVital SignValuePerforming PhvstiifqRvtdllmr38-06-6860 10:45-0500Body uigkuk308.34 cmFidel Abbott MD Work Phone: [facility]11-06-2025 10:45-0500 Body mass index (BMI) [Ratio]31.4 kg/m2Fidel Abbott MD Work Phone: [facility]11-06-2025 10:45-0500 Body jtynvraoust55.1 [degF]Fidel Abbott MD Work Phone: [facility]11-06-2025 10:45-0500 Body yffyvc440.05 kgFidel Abbott MD Work Phone: 1(932)723-[address] [place], [place] 9983511-06-2025 10:45-0500 Diastolic blood wbjjtecw15 mm[Hg]Fidel Abbott MD Work Phone: 1(753)[address]11-06-2025 10:45-0500 Heart rate88 /minFidel Abbott MD Work Phone: 1(837)45088 [address]11-06-2025 10:45-0500 Respiratory rate20 /minFidel Abbott MD Work Phone: 1(364)72088 [address]11-06-2025 10:45-0500 SaO2% (BldA) [Mass fraction]98 %Fidel Abbott MD Work Phone: 1(382)39688 [address]11-06-2025 10:45-0500 Systolic blood pnoryxor521 mm[Hg]Fiedl Abbott MD Work Phone: 1(668)73888 [address]10-30-2025 13:19-0400 Body dicstl699.34 cmFidel Abbott MD Work Phone: 1(555)34088 [address]10-30-2025 13:19-0400 Body mass index (BMI) [Ratio]31.4 kg/m2Fidel Abbott MD Work Phone: 1(430)849-[address] [place], [place] 9983510-30-2025 13:19-0400 Body .5 [degF]Fidel Abbott MD Work Phone: 1(219)918-[address] [place], [place] 9983510-30-2025 13:19-0400 Body mhqont384.05 kgFidel Abbott MD Work Phone: 1(973)82088 [address]10-30-2025 13:19-0400 Diastolic blood xlnglsiq66 mm[Hg]Fidel Abbott MD Work Phone: 1(789)874-[address] [place], [place] 9983510-30-2025 13:19-0400 Heart rate91 /minFidel Abbott MD Work Phone: 1(688)47888 [address]10-30-2025 13:19-0400 Systolic blood olgrildj366 mm[Hg]Fidel Abbott MD Work Phone: 1(296)75788 [address]10-28-2025 11:59-0400 Body zpcyfx586.34 cmFidel Abbott MD Work Phone: 1(775)[address] [place], [place] 1946810-28-2025 11:59-0400 Body mass index (BMI) [Ratio]31.4 kg/m2Fidel Abbott MD Work Phone: 1(317)[address] [place], [place] 6553610-28-2025 11:59-0400 Body .05 kgFidel Abbott MD Work Phone: 1(728)[address] [place], [place] 1946810-28-2025 11:13-0400 Body pgaxbclqcag71.2 [degF]Fidel Abbott MD Work Phone: 1(763)[address] [place], [place] 6553610-28-2025 11:13-0400 Diastolic blood mm[Hg]Fidel Abbott MD Work Phone: 1(698)[address] [place], [place] 1946810-28-2025 11:13-0400 Heart rate82 /Ceci Abbott MD Work Phone: 1(467)[address] [place], [place] 6553610-28-2025 11:13-0400 Systolic blood mm[Hg]Fidel Abbott MD Work Phone: 1(938)[address] [place], [place] 1946807-15-2025 10:26-0400 Respiratory rate18 /Ceci Abbott MD Work Phone: 1(096)[address]2025 13:45-0400 Diastolic blood kkegaxii81 mm[Hg]Fidel Abbott MD Work Phone: 1(478)[address]2025 13:45-0400 Heart rate55 /Ceci Abbott MD Work Phone: 1(453)99888 [address]2025 13:45-0400 Respiratory rate16 /minFidel Abbott MD Work Phone: 1(243)485[address]2025 13:45-0400 SaO2% (BldA) [Mass fraction]97 %Fidel Abbott MD Work Phone: 1(458)33[address]2025 13:45-0400 Systolic blood ukyucfkw265 mm[Hg]Fidel Abbott MD Work Phone: 1(106)[address] [place], [place] 6553607-07-2025 13:00-0400 Inhaled oxygen flow rate6 L/minFidel Abbott MD Work Phone: 1(500)[address] [place], [place] 6553607-07-2025 10:58-0400 Body urldxe015.34 cmFidel Abbott MD Work Phone: 1(531)[address] [place], [place] 6553607-07-2025 10:58-0400 Body eztqcgmbgzw87.4 [degF]Fidel Abbott MD Work Phone: 1(533)[address] [place], [place] 6553607-07-2025 10:58-0400 Body mreetw598.05 kgFidel Abbott MD Work Phone: 1(630)[address] [place], [place] 6553606-04-2025 12:17-0400 Body fpnyligwsvw63.7 [degF]Fidel Abbott MD Work Phone: 1(520)[address] [place], [place] 6553606-04-2025 12:17-0400 Diastolic blood fxeqyurq10 mm[Hg]Fidel Abbott MD Work Phone: 1(926)[address] [place], [place] 6553606-04-2025 12:17-0400 Heart rate56 /minFidel Abbott MD Work Phone: 1(186)[address]06-04-2025 12:17-0400 SaO2% (BldA) [Mass fraction]97 %Fidel Abbott MD Work Phone: 1(689)[address] [place], [place] 1946806-04-2025 12:17-0400 Systolic blood dcxosemt21 mm[Hg]Fidel Abbott MD Work Phone: 1(828)453-[address] [place], [place] 9983505-20-2025 11:19-0400 Body .34 cmFidel Abbott MD Work Phone: 1(085)04288 [address]05-20-2025 11:19-0400 Body mass index (BMI) [Ratio]31.4 kg/m2Fidel Abbott MD Work Phone: 1(012)[address] [place], [place] 6553605-20-2025 11:19-0400 Body .05 kgFidel Abbott MD Work Phone: 1(311)[address]05-20-2025 10:28-0400 Body eeihhqtcbql89.1 [degF]Fidel Abbott MD Work Phone: 1(300)[address] [place], [place] 1946805-20-2025 10:28-0400 Diastolic blood uqgjsjgv94 mm[Hg]Fidel Abbott MD Work Phone: 1(771)[address]05-20-2025 10:28-0400 Heart rate71 /minFidel Abbott MD Work Phone: 1(502)[address]05-20-2025 10:28-0400 Respiratory rate16 /minFidel Abbott MD Work Phone: 1(709)[address]05-20-2025 10:28-0400 Systolic blood kotqzijd749 mm[Hg]Fidel Abbott MD Work Phone: 1(011)[address]05-05-2025 10:49-0400 Body llagsu390.3 cmFidel Abbott MD Work Phone: [facility] SpringsBjfaqhzpcd66-00-6037 10:49-0400Body temperature 97.5 [degF]Fidel Abbott MD Work Phone: [facility] SpringsKusbunuzsr04-20-2857 10:49-0400Diastolic blood qiunyavr49 mm[Hg]Fidel Abbott MD Work Phone: [facility] SpringsRdibnhfrun97-33-8042 10:49-0400Heart rate57 /min Fidel Abbott MD Work Phone: 1([phone] SpringsDcihksjjya65-74-2949 10:49-0400Respiratory rate18 /minFidel Abbott MD Work Phone: 1(477)2[facility] HospitalSaint [facility] Blue SpringsGrfcswusfp76-14-7325 10:49-1416GzF5% (BldA) [Mass fraction]98 %Fidel Abbott MD Work Phone: 1(982)[address] [place], [place] [address] SpringsUxogisrpin02-29-3446 10:49-0400Systolic blood jeedayzl202 mm[Hg]Fidel Abbott MD Work Phone: 1(572)[address] [place], [place] 5722412-17-2024 11:23-0500Body lierjs266.34 cmFidel Abbott MD Work Phone: 1(059)[address] [place], [place] 6553612-17-2024 11:23-0500 Body mass index (BMI) [Ratio]31.4 kg/m2Fidel Abbott MD Work Phone: 1(753)[address] [place], [place] 6553612-17-2024 11:23-0500 Body ylvimj975.05 kgFidel Abbott MD Work Phone: 1(485)[address] [place], [place] 6553612-17-2024 10:50-0500 Body qdzkenxryyg15.2 [degF]Fidel Abbott MD Work Phone: 1(394)[address] [place], [place] 6553612-17-2024 10:50-0500 Diastolic blood mm[Hg]Fidel Abbott MD Work Phone: 1(169)[address] [place], [place] 6553612-17-2024 10:50-0500 Heart rate61 /minFiedl Abbott MD Work Phone: 1(700)[address] [place], [place] 6553612-17-2024 10:50-0500 Respiratory rate18 /minFidel Abbott MD Work Phone: 1(228)[address] [place], [place] 6553612-17-2024 10:50-0500 Systolic blood cyfthogw511 mm[Hg]Fidel Abbott MD Work Phone: 1(175)[address] [place], [place] 6553611-12-2024 11:44-0500 Body .34 cmFidel Abbott MD Work Phone: 1(021)[address] [place], [place] 6553611-12-2024 11:44-0500 Body mass index (BMI) [Ratio]31.4 kg/m2Fidel Abbott MD Work Phone: 1(804)[address] [place], [place] 6553611-12-2024 11:44-0500 Body ehndqe968.05 kgFidel Abbott MD Work Phone: 1(041)[address] [place], [place] 6553611-12-2024 10:51-0500 Body vnfwxvypxhq86.1 [degF]Fidel Abbott MD Work Phone: 1(521)[address] [place], [place] 6553611-12-2024 10:51-0500 Diastolic blood gefcuwfh02 mm[Hg]Fidel Abbott MD Work Phone: 1(865)[address] [place], [place] 6553611-12-2024 10:51-0500 Heart rate64 /minFidel Abbott MD Work Phone: 1(911)[address] [place], [place] 6553611-12-2024 10:51-0500 Respiratory rate18 /minFidel Abbott MD Work Phone: 1(536)[address] [place], [place] 6553611-12-2024 10:51-0500 Systolic blood mm[Hg]Fidel Abbott MD Work Phone: 1(081)[address] [place], [place] 6553610-24-2024 11:52-0400 Body vmofoo612.3 cmFidel Abbott MD Work Phone: 1(982)55024[address] [place], [place] [address]Bdaemojxlt01-41-0087 11:52-0400Body temperature 97.5 [degF]Fidel Abbott MD Work Phone: 1(686)89688[address] [place], [place] [address]Xrsfkldrdc70-79-8504 11:52-0400Diastolic blood kdiwolvw85 mm[Hg]Fidel Abbott MD Work Phone: 1(446)4920738[facility] SpringsVxidikvuet64-97-9926 11:52-0400Heart rate57 /min Fidel Abbott MD Work Phone: 1(419)[address]10-24-2024 11:52-0400Respiratory rate20 /minFidel Abbott MD Work Phone: 1(532)2-6054[facility] SpringsGuiutbvxfg21-65-2727 11:52-5429DeV2% (BldA) [Mass fraction]99 %Fidel Abbott MD Work Phone: [facility] SpringsKhaujvsxbj55-66-1772 11:52-0400Systolic blood pmnepkxe774 mm[Hg]Fidel Abbott MD Work Phone: 1(436)[address] [place], [place] [address]Cdxibvmqod86-83-6660 13:47-0400Body .3 cmFidel Abbott MD Work Phone: 1(355)[address] [place], [place] 5722408-22-2024 13:47-0400Body temperature 97.5 [degF]Fidel Abbott MD Work Phone: 1(490)[address] [place], [place] [address]Kkvahemxar39-70-9923 13:47-0400Diastolic blood xpywdata69 mm[Hg]Fidel Abbott MD Work Phone: 1(688)[address] [place], [place] [address]Mmwpgwziom61-57-4047 13:47-0400Heart rate60 /min Fidel Abbott MD Work Phone: [facility] SpringsJuutqachae84-97-5398 13:47-0400Respiratory rate18 /minFidel Abbott MD Work Phone: [facility] SpringsYpbtqljunb92-88-2014 13:47-8578ZiC1% (BldA) [Mass fraction]97 %Fidel Abbott MD Work Phone: 1(621)334-[address] [place], [place] [address]Gewvinsdpl13-43-9064 13:47-0400Systolic blood gqlsytyx059 mm[Hg]Fidel Abbott MD Work Phone: 1(497)8518171[facility] SpringsGvsuiwmmcc08-28-5805 13:27-0500Diastolic blood hyqmlfce57 mm[Hg]MD Fidel Abbott Work Phone: [facility]03-08-2024 13:27-0500 Heart rate60 /minMD Fidel bAbott Work Phone: 1(419)547-[address] [place], [place] 9396003-08-2024 13:27-0500 Respiratory rate12 /minMD Fidel Abbott Work Phone: 1(047)687-[facility]03-08-2024 13:27-0500 SaO2% (BldA) [Mass fraction]98 %MD Fidel Abbott Work Phone: 1(895)731-[facility]03-08-2024 13:27-0500 Systolic blood mm[Hg]MD Fidel Abbott Work Phone: 1(939)751-[address] [place], [place] 9983503-08-2024 10:49-0500 Body foplbd341.34 cmMD Fidel Abbott Work Phone: 1(199)888-[address] [place], [place] 9983503-08-2024 10:49-0500 Body cuuvvczhsam38 [degF]MD Fidel Abbott Work Phone: 1(705)643-[address] [place], [place] 9983503-08-2024 10:49-0500 Body ilnlur076.3 kgMD Fidel Abbott Work Phone: 1(111)477-[address] [place], [place] 9983502-08-2024 10:40-0500 Body .8 cmJonathan Brown DPM Work Phone: [facility] SpringsBnvxobbzqu79-26-5692 10:40-0500Body mass index (BMI) [Ratio]35.87 kg/y8TsotngutJonathan Moffett DPM Work Phone: [facility] SpringsYtvetgzrdb80-32-2639 10:40-0500Body karhqm529.4 kgJonathan Moffett DPM Work Phone: [facility] SpringsGgyesnkcqq35-66-7669 10:40-0500Diastolic blood rrtfpsla22 mm[Hg]Jonathan Moffett DPM Work Phone: [facility] SpringsPhgmzqlaqq23-45-5693 10:40-0500Heart rate79 /min Jonathan Moffett DPM Work Phone: [facility] SpringsRgcgoxlcex39-20-9759 10:40-0500Systolic blood ulfcmxef342 mm[Hg]Jonathan Moffett DPM Work Phone: [facility] SpringsAgcocurtii54-56-1657 13:06-0500Body mass index (BMI) [Ratio]34.8 kg/m2MD Fidel Abbott Work Phone: 1(262)768-[address] [place], [place] 9983502-06-2024 12:48-0500 Body .34 cmMD Fidel Abbott Work Phone: 1(147)[address]02-06-2024 12:48-0500 Body bbvjre961.39 kgMD Fidel Abbott Work Phone: 1(761)[address]02-06-2024 11:25-0500 Body jvhifngizqm90.3 [degF]MD Fidel Abbott Work Phone: 1(249)[address]02-06-2024 11:25-0500 Diastolic blood grtzwwyj24 mm[Hg]MD Fidel Abbott Work Phone: 1(526)23588 [address]02-06-2024 11:25-0500 Heart rate64 /minMD Fidel Abbott Work Phone: 1(801)785-[address] [place], [place] 9983502-06-2024 11:25-0500 Respiratory rate18 /minMD Fidel Abbott Work Phone: 1(449)[address]02-06-2024 11:25-0500 Systolic blood tonqfljh471 mm[Hg]MD Fidel Abbott Work Phone: 1(361)202-[address] [place], [place] 9983508-14-2023 13:10-0400 Blood Pressure LocationPakasia VILLA [facility]08-14-2023 13:10-0400Diastolic blood vgumcxjj00 mm[Hg]Jovanny VILLA [facility]08-14-2023 13:10-0400Heart rate78 /minJovanny VILLA [facility]08-14-2023 13:10-0400Systolic blood mm[Hg]Jovanny VILLA [facility]03-31-2023 14:00-0400Body nbfgudzipse34.81 [degF]Eli Pimentel MD Work Phone: [place]-31-2023 14:00-0400Diastolic blood wochgsfh49 mm[Hg]Eli Pimentel MD Work Phone: [facility]-31-2023 14:00-0400Heart rate70 /minEli Pimentel MD Work Phone: [facility]03-31-2023 14:00-0400 Respiratory rate18 /minEli Pimentel MD Work Phone: [facility]03-31-2023 14:00-3046HkR3% (BldA) [Mass fraction]95 %Eli Pimentel MD Work Phone: [place]03-31-2023 14:00-0400Systolic blood luwtbayn200 mm[Hg]Eli Pimentel MD Work Phone: [facility]03-31-2023 05:30-0400Body mass index (BMI) [Ratio]34.28 kg/a6ActdwjxEli Pimentel MD Work Phone: [facility]03-31-2023 05:30-0400Body omzhkx245.49 kgEli Pimentel MD Work Phone: [phone]03-30-2023 04:54-0400Body kxzcpy002.3 cmEli Pimentel MD Work Phone: [facility]03-07-2023 12:14-0500Body defbhu374.72 cmMD Fidel Abbott Work Phone: [facility]03-07-2023 12:14-0500 Body mass index (BMI) [Ratio]41 kg/m2MD Fidel Abbott Work Phone: 1(419)[address] [place], [place] 6553603-07-2023 12:14-0500 Body tlxlcu188.46 kgMD Fidel Abbott Work Phone: 1(352)[address] [place], [place] 6553603-07-2023 09:52-0500 Body rcaoxjpuisz53 [degF]MD Fidel Abbott Work Phone: 1(711)[address] [place], [place] 6553603-07-2023 09:52-0500 Diastolic blood ywlxnnpj89 mm[Hg]MD Fidel Abbott Work Phone: 1(655)[address] [place], [place] 6553603-07-2023 09:52-0500 Heart rate76 /minMD Fidel Abbott Work Phone: 1(801)[address] [place], [place] 6553603-07-2023 09:52-0500 Systolic blood piiqnnuq036 mm[Hg]MD Fidel Abbott Work Phone: 1(587)[address] [place], [place] 6553612-06-2022 12:06-0500 Body cwqbwo714.34 cmMD Fidel Abbott Work Phone: 1(969)[address] [place], [place] 6553612-06-2022 12:06-0500 Body mass index (BMI) [Ratio]34.8 kg/m2MD Fidel Abbott Work Phone: 1(716)[address] [place], [place] 6553612-06-2022 12:06-0500 Body shkoes798.39 kgMD Fidel Abbott Work Phone: 1(116)[address] [place], [place] 6553612-06-2022 11:37-0500 Body .7 [degF]MD Fidel Abbott Work Phone: 1(296)[address] [place], [place] 6553612-06-2022 11:37-0500 Diastolic blood ueeoaqrx66 mm[Hg]MD Fidel Abbott Work Phone: 1(087)[address] [place], [place] 6553612-06-2022 11:37-0500 Heart rate68 /minMD Fidel Abbott Work Phone: 1(603)[address] [place], [place] 6553612-06-2022 11:37-0500 Respiratory rate18 /minMD Fidel Abbott Work Phone: [facility]12-06-2022 11:37-0500 Systolic blood bputpawe229 mm[Hg]MD Fidel Abbott Work Phone: [facility] Encounters Encounter DateEncounter TypeCare ProviderFacilityStart: 91-92-3909qmlloehbfb Jovanny Bustoscility:CD:[id number]: 02-01-2025 End: 34-29-9812ozfeizazyjXkdc Naderer MD Work Phone: -[facility] ClydeStart: 02-01-2025 End: 52-21-5151Tgjiurs encounter procedureFidel Abbott MD-[facility] [place] Work Phone: Start: 01-25-2025 End: 31-75-2608uyeitgeyhhFfbb Naderer MD Work Phone: [phone]-Prmtansfg Health Infect DisStart: 01-25-2025 End: 52-55-2070Kgfkqya encounter procedureMiclori Morelos MD-[facility] Infect [facility] Work Phone: Start: 98-00-5268otezdjqptlWjzulw Vargas [facility]art: 96-29-7806Hytbebaoui Recurring Cathy Brar MD-[facility] Work Phone: Start: 01-15-2025 End: 01-62-4544oqykpvguvrJdnhsol R WATERSFacility:EU BellevueStart: 01-15-2025 End: 83-06-2322Acmxwae encounter procedureJovanny VILLA [facility] start: 69-29-2709Ihl-patient / Non-visitPeter Shruti ZENDEJAS MS-[facility] Work Phone: Start: 65-62-1800Vel-patient / Non-visitApcindy River MD-[facility] Work Phone: Start: 11-22-2024 End: 59-11-1851HbstkvCuaj Naderer MD Work Phone: noms CWM FMComment on above:Primary hypertension ; Benign hypertension ; Type 2 diabetes mellitus with hyperglycemia, without long-term current use of insulin (HCC); DyslipidemiaStart: 11-01-2024 End: 95-60-7180DyyoiyOgxm Naderer MD Work Phone: noms CWM FMComment on above:Type 2 diabetes mellitus with hyperglycemia, without long-term current use of insulin (HCC)Start: 10-02-2024 End: 60-27-7203Qbjpkfem Result EncounterCathy Brar MD Work Phone: noms External Department UnsolicitedStart: 10-02-2024 End: 53-26-1700Jgvtdsuf Result Mulu Edwards MD Work Phone: noms External Department UnsolicitedStart: 10-02-2024 End: 45-99-9762Bupngzxgx to same day surgery dry creekCathy Brar MD-[facility] CenterStart: 10-02-2024 End: 95-69-9842xxuuzuqyxbQnnh Naderer MD Work Phone: [facility] Work Phone: Start: 09-26-2024 End: 43-01-9683Evnsjkahn Result EncounterGeneric External Data ProviderNOMS External Department UnsolicitedStart: 09-26-2024 End: 37-03-0071Dqsibpamv Result EncounterGeneric External Data ProviderNOMS External Department UnsolicitedStart: 09-11-2024 End: 93-49-5724Ytexegdbt Result EncounterGeneric External Data ProviderNOMS External Department UnsolicitedStart: 09-11-2024 End: 73-05-3306Rgjaipcfq Result EncounterGeneric External Data ProviderNOMS External Department UnsolicitedStart: 08-30-2024 End: 56-69-4402Kmromiw encounter Jagruti Abbott MD Work Phone: [facility] Work Phone: Start: 08-30-2024 End: 56-08-8339tzkgpiqjyvRygf Naderer MD Work Phone: [facility] Work Phone: Start: 11-31-7221Iuvorziuby Geri Abbott MD Work Phone: [facility] [place] Work Phone: Start: 08-10-2024 End: 53-14-8252Fvkvrrayi Result EncounterGeneric External Data ProviderNOMS External Department UnsolicitedStart: 08-10-2024 End: 01-17-0778Cuamprrhu Result EncounterGeneric External Data ProviderNOMS External Department UnsolicitedStart: 07-31-2024 End: 91-04-6169Yuncfj Silverio Abbott MD Work Phone: noms CWM FMStart: 07-31-2024 End: 90-20-1393Lualxu Silverio Abbott MD Work Phone: noms CW FMStart: 07-31-2024 End: 31-63-9974Jaanzo outpatient visit 25 minutesFidel Abbott MD Work Phone: noms CW FMComment on above:Type 2 diabetes mellitus with hyperglycemia, without long-term [...] index (BMI) of36.0 to 36.9 in adult (CMS/HCC); Type 2 diabetes mellitus with other specified complication; Hyperlipidemia, unspecified (CMS/HCC); Pressure ulcer of right heel, unstageable (CMS/HCC); Type 2 diabetes mellitus with other skin ulcer (CODE); Paraplegia, unspecified; Diabetes mellitus due to underlying condition with diabetic polyneuropathy ([facility])Start: 07-31-2024 End: 00-08-7047Whhqcso encounter Jagruti Abbott MD Work Phone: noms HealthcareStart: 07-31-2024 End: 50-47-5301jzbfmdpqyjPQMX NADERERNot AvailableStart: 05-30-2024 End: 97-03-6309Uyfqxbhiq Result EncounterGeneric External Data ProviderNOMS External Department UnsolicitedStart: 05-30-2024 End: 30-85-7704Numcqjdap Result EncounterGeneric External Data ProviderNOMS External Department UnsolicitedStart: 49-98-3204wwiforgvowSBEOUJFA E WESTLEY Facility:[facility]art: 04-17-2024 End: 93-84-7388Nwvcpnocg encounterScanning Provider ExternalN [facility]edoStart: 04-14-2024 End: 35-46-5274Cwtjctjjl encounterBrooke Dalila [facility] Hospital[facility]Start: 04-06-2024 End: 93-79-5161Qloueukme encounterBrooke Dalila [facility] Hospital[facility]Start: 03-14-2024 End: 88-03-1068jwjjharbwvTibw Naderer MD Work Phone: [facility] Work Phone: Start: 03-14-2024 End: 83-13-2891Qojxagzrle RecurringFidel Abbott MD Work Phone: [facility] Work Phone: Start: 03-13-2024 End: 48-28-9057UinhmfNnve Naderer MD Work Phone: noms CWM FMComment on above:PruritusStart: 03-10-2024 Non-patient / Non-visitFidel Abbott MD Work Phone: [facility] Work Phone: Start: 03-10-2024 End: 24-98-1555Tibeccrfn Result EncounterGeneric External Data ProviderNOMS External Department UnsolicitedStart: 03-10-2024 End: 87-67-1977Omxpaopsm Result EncounterGeneric External Data ProviderNOMS External Department UnsolicitedStart: 03-06-2024 End: 61-06-0281Fdypwtekp Result EncounterGeneric External Data ProviderNOMS External Department UnsolicitedStart: 03-06-2024 End: 84-82-4725Cjbwgxoep Result EncounterGeneric External Data ProviderNOMS External Department UnsolicitedStart: 02-14-2024 End: 32-52-8273Afsqfqxej Result EncounterGeneric External Data ProviderNOMS External Department UnsolicitedStart: 02-14-2024 End: 19-65-8296Gjnqoxfex Result EncounterGeneric External Data ProviderNOMS External Department UnsolicitedStart: 09-82-1923Ulifzrnycn Geri Abbott MD Work Phone: [facility] Work Phone: Start: 02-08-2024 End: 92-06-9037Rudpzqk encounter procedureFidel Abbott MD Work Phone: [facility]-Lab [facility] [place] Work Phone: Start: 02-08-2024 End: 49-52-6932rbkrxfowsmJdos Naderer MD Work Phone: [facility] Work Phone: Start: 01-20-2024 End: 38-90-4033Xcsrwa flowsJane Abbott MD Work Phone: noms CWM FMStart: 01-20-2024 End: 45-88-7714Jrowdv flowsJane Abbott MD Work Phone: n[facility] CWM FMStart: 01-20-2024 End: 51-77-9049Itspvn outpatient visit 15 minutesFidel Abbott MD Work Phone: noms CWM FMComment on above:Urticaria (Primary Dx) Start: 01-20-2024 End: 66-43-1184wgwetbbrgtMCAH NADERERNot AvailableStart: 01-17-2024 End: 35-84-5838Hthtoe Ursula Valdivia MD Work Phone: [facility] Comment on above:Stage 3a chronic kidney disease (CMS-HCC) (Primary Dx)Start: 01-12-2024 End: 98-86-1393Jwrkbfamy encounterScanning Provider ExternalPHN [facility] HospitaloStart: 12-02-2023 End: 58-23-3963Ohahybixl Result EncounterGeneric External Data ProviderNOMS External Department UnsolicitedStart: 12-02-2023 End: 94-90-9096Nockazlpt Result EncounterGeneric External Data ProviderNOMS External Department UnsolicitedStart: 11-18-2023 End: 82-31-1758Upvimh outpatient visit 25 minutesFidel Abbott MD Work Phone: noms CWM FMComment on above:Type 2 diabetes mellitus with hyperglycemia, without long-term current use of insulin (CMS/HCC) (Primary Dx); Benign hypertension (CMS/HCC); Major depressive disorder, recurrent episode, mild (HCC) (CMS/HCC); Incontinence overflow, urine; Pruritus; Chronic kidney disease, stage 3a (HCC) (CMS/HCC); Encounter for long-term (current) use of medications; Cauda equina syndrome (CMS/HCC)Start: 11-18-2023 End: 74-57-2293gnqrdimrjuELWH NADERERNot AvailableStart: 11-12-2023 End: 34-73-8671Fnrcdwi encounter procedureJovanny VILLA [facility] start: 10-11-2023 End: 49-68-0540eozgofpcqxDjlbw CervantesProMedica Loma [facility] University Children's Hospitaltart: 07-08-2023 End: 44-81-4593ikyhttbmvqJH Fidel Abbott Work Phone: [facility] Work Phone: Start: 07-08-2023 End: 55-23-3612Dmbbuzsb ReferredMD Fidel Abbott Work Phone: [facility]-LAB Path Spec [facility]iti HospStart: 06-04-2023 End: 10-00-6269Xjjutovck to same day surgery centerID Fidel Abbott Work Phone: [facility] CampusStart: 05-18-2023 End: 84-31-4740Fvnwxtnzi Result EncounterGeneric External Data ProviderNOMS External Department UnsolicitedStart: 05-18-2023 End: 58-70-7864Dhewzoemq Result EncounterGeneric External Data ProviderNOMS External Department UnsolicitedStart: 78-45-2990Xkdqogazx encounterSandhya FRANCOMS NMA PODComment on above:PrescriptionStart: 82-34-0733Dfbxa abstractingJonathan Moffett DPM Work Phone: noMS CI PODIATRYStart: 05-06-2023 End: 57-40-7811Dnupjs outpatient visit 25 minutesJonathan Moffett DPM Work Phone: noms CI PODIATRYComment on above:Cellulitis of left foot (Primary Dx); Ulcer of left ankle, with necrosis of bone (HCC) (CMS/HCC); Diabetes mellitus due to underlying condition with diabetic polyneuropathy, unspecified whether remote computer terminal operator insulin use (CMS/HCC); Acute complete paraplegia (CMS/HCC); Acute osteomyelitis of left fibula (CMS/HCC); Foot ulcer, right, with fat layer exposed (CMS/HCC); Venous insufficiencyStart: 05-04-2023 End: 73-10-9917parukyhvuzCJ Fidel Abbott Work Phone: [facility] Work Phone: Start: 05-04-2023 End: 99-93-1535Fqzddmhsqw RecurringMD Fidel Aguirreerer Work Phone: [facility] [place] Work Phone: Start: 11-09-2022 End: 54-87-6324Rqzxung encounter procedurePagregwillam VILLA [facility] start: 09-25-2022 End: 68-91-6158ciepggyacdUNYUJamie Awad [facility] HospitalStart: 09-18-2022 End: 71-75-2902irkssauactWBCTMYD W PARSELLMercy [facility]ed[facility] HospitalStart: 09-18-2022 End: 89-28-3975Ifrmeclbbl hospital visit by physicianCo[facility] UltrasoundComment on above:Cauda equina syndrome (HCC); Neurogenic bladder; Urinary retention; Urinary incontinence without sensory awarenessStart: 2022 End: 32-96-4705pflxaxzzxqVJZUUU ZACIEWSKIMercy [facility] HospitalStart: 07-02-2022 End: 53-56-8008junghjsecdRIDMJGGSHELLY Campos [facility] HospitalStart: 07-02-2022 End: 82-13-8121Ouknmnnflo hospital visit by Mike Abbott MD Work Phone: mthz LaboratoryComment on above:Acute kidney injury (HCC); Iron deficiency anemia, unspecified iron deficiency anemia typeStart: 06-22-2022 End: 78-16-9549Mgguzsxzem and management of inpatientSLUCIO Montero [facility] HospitalStart: 06-22-2022 End: 33-90-6282Dkohvflkod and management of inpatientEli Pimentel MD Work Phone: mthz [facility] MED SURGComment on above:Acute kidney injury (HCC) (Primary Dx); Hyperkalemia; Iron deficiency anemia, unspecified iron deficiency anemia typeStart: 06-22-2022 End: 31-86-1164wmnbqtfcftXILKVC ZACIEWSKIMercy [facility] HospitalStart: 06-22-2022 End: 87-18-6562Tgwtbftupp hospital visit by Mike Abbott MD Work Phone: mthz EKGComment on above:Neurogenic bladderStart: 06-02-2022 End: 24-29-6405ygpwcwydhoJB Fidel Abbott Work Phone: [facility] Work Phone: Start: 06-02-2022 End: 22-82-2840Fcxniibtfv RecurringMD Fidel Abbott Work Phone: [facility] [place] Work Phone: Start: 03-14-2022 End: 63-19-8071hagrnoxklrZS ALBERT V VARGASFacility:A0Eboei: 03-03-2022 End: 72-06-1559sqdvgjxcepWA Marc Naderer Work Phone: [facility] Work Phone: Start: 03-03-2022 End: 41-20-5661Cdbmbvhsmx RecurringMD Fidel Abbott Work Phone: [facility] [place] Work Phone: Start: 02-26-2022 End: 98-08-8337uqpgqrlfjlWY ALBERT V VARGASFacility:V1Enxfh: 05-30-2021 End: 35-61-2449lomhxzufwfZG FIDEL Geoff ANTHONYRFacility:V5Wjwyc: 04-09-2017 End: 43-30-6712Lpqdbgmidw and management of inpatientSUSIE [facility] Procedures DateProcedureProcedure DetailPerforming ClinicianStart: 45-13-1049CONBVFT POCT GLUCOMETERSCathy Brar MD Work Phone: Start: 27-30-4252GTAUODX Kristina Brar MD Work Phone: Start: 52-77-2533NEJLUTTKQ Kristina Brar MD Work Phone: Start: 59-14-9214TqhsevelgijJrku Naderer MD Work Phone: Start: 18-01-3114SIFESQE POCT GLUCOMETERSCathy Brar MD Work Phone: Start: 98-45-2217LXX CBC WITH AUTO DIFFGeneric External Data ProviderStart: 93-56-9928ITO CBC WITH AUTO DIFFGeneric External Data ProviderStart: 67-85-4904VJW CBC WITH AUTO DIFFGeneric External Data ProviderStart: 15-39-6961WLG CBC WITH AUTO DIFFGeneric External Data Provider Start: 25-13-3959XVO CBC WITH AUTO DIFFGeneric External Data ProviderStart: 91-24-5524PME 12-LEADGeneric External Data ProviderStart: 58-04-0805NAKZAOWZA BLOOD PRESSUREGeneric External Data ProviderStart: 96-84-7623ONY SED RATEGeneric External Data ProviderStart: 55-08-4918IKU CBC WITH AUTO DIFFGeneric External Data ProviderStart: 51-31-5302Kyqxbwstuzmci of transfusion reactionMD Fidel Abbott Work Phone: Start: 38-71-3757OkpuvifkuzsIH Fidel Abbott Work Phone: Start: 45-27-8007WY ANKLE LT WO CONGeneric External Data ProviderStart: 72-53-0542Lnkojphpshjncdyme with dilation of urethral stricturePatrick VILLA Start: 08-45-7338Ue retroperitoneal real time w/image completeBethany W Mirna TYPEWRITER ALIGNER - PASTE UP ARTIST APPRENTICE Work Phone: Start: 87-16-2647Nukmlsl urethrotomyPatrick VILLA Start: 21-19-6755Vcvkhjh urethrotomyPatrick VILLA Start: 93-26-7555Gcskf metabolic panel calcium total Shelly Mondragon TYPEWRITER ALIGNER - PASTE UP ARTIST APPRENTICE Work Phone: Start: 06-26-2022 End: 55-39-2987VHQXQUPNXDL POLYPECTOMY SNARE/COLD BIOPSYKaterina Atkins MD Work Phone: Start: 06-26-2022 End: 08-75-9679Irsjgfdzitnhk intra/transmural needle aspirat/bxKaterina Atkins MD Work Phone: Start: 06-26-2022 End: 02-43-8735VjpjznbncocFesffd N Chidi MD Work Phone: Start: 21-13-8596ZslnwocittxyrauciazhnsqsnrKydndp N Chidi MD Work Phone: Start: 73-22-1137BQTXNUW, WHOLE BLOODStefscott Garcia MD Work Phone: Start: 79-89-9003Nkoba count complete auto&auto difrntl wbcKaterina Atkins MD Work Phone: Start: 13-93-0416Smtqgr ecg 1-3 leads w/interpretation & reportUnknown Provider ResultStart: 22-95-4446Wzyyl occult peroxidase actv qual feces 1 deterShelly Mondragon TYPEWRITER ALIGNER - PASTE UP ARTIST APPRENTICE Work Phone: Start: 80-53-2078Kyf bact xcpt urine blood/stool aerobic isolJohn W Mechelle DPM Work Phone: start: 40-51-3277Rvvou count complete auto&auto difrntl wbcKaterina Atkins MD Work Phone: Start: 06-25-2022 End: 28-81-5644Xbptrm ecg 1-3 leads w/interpretation & reportUnknown Provider ResultStart: 80-60-9574Clesjenw Jose Pimentel MD Work Phone: start: 62-47-4669Rbbsm of troponin Saida Villafuerte PA-C Work Phone: Start: 06-24-2022 End: 78-07-0418Dkkmfcanwvg of packed red blood cellsShelly Mondragon TYPEWRITER ALIGNER - PASTE UP ARTIST APPRENTICE Work Phone: Start: 50-71-8971Vkwz tthrc r-t 2d w/wom-mode compl spec&colr dShigarth MoralesJohns Hopkins [facility] Work Phone: Start: 56-18-5530Lrdrh typing serologic aboShelly MoralesJohns Hopkins [facility] Work Phone: Start: 47-40-5993YQZMYVZ, WHOLE BLOODStefscott Garcia MD Work Phone: Start: 06-24-2022 End: 33-94-6785Fjbzquvspds timeShigarth Tellez AndrewThomas [facility]. [facility] Work Phone: Start: 94-14-3953XATAHBA B12 & FOLATEShyonatan MoralesThomas B. [facility] Work Phone: Start: 06-24-2022 End: 39-51-1360Ixrdbk ecg 1-3 leads w/interpretation & reportUnknown Provider ResultStart: 06-23-2022 End: 05-64-1654Tecvd of troponin quantitativeZoila Villafuerte PA-C Work Phone: Start: 28-65-2070Xleprp ecg 1-3 leads w/interpretation & reportUnknown Provider ResultStart: 06-23-2022 End: 49-23-1394Xpl routine ecg w/least 12 lds i&r Carlito Villafuerte PA-C Work Phone: Start: 98-00-1911OTOWRPC, WHOLE BLOODMatias Garcia MD Work Phone: Start: 67-88-1277Qzuqy ankle complete minimum 3 views Shelly Geoff MoralesThomas B. Finan Center Work Phone: Start: 89-48-1394Hryih panelZoila Villafuerte PA-C Work Phone: Start: 72-79-3956Hremd dip stick/tablet rgnt auto w/o microscopyEli Pimentel MD Work Phone: start: 74-61-0423Kxi bact xcpt urine blood/stool aerobic isolStefscott Garcia MD Work Phone: Start: 29-36-5569Bkl routine ecg w/least 12 lds i&r onlyEli Pimentel MD Work Phone: start: 07-60-9792Loiqjmbnjuwvk metabolic panelEli Pimentel MD Work Phone: start: 89-37-0706Phl routine ecg w/least 12 lds w/i&r Angeles Nagy MD Work Phone: Start: 87-44-6905Qpsbk metabolic panel calcium total Angeles Nagy MD Work Phone: Start: 24-48-8686YJQW GLUCOSESUSIE KIMStart: 68-57-0880HSYQT METABOLIC PANELSUSIE KIMStart: 30-63-3030RDY WITH AUTO DIFFERENTIALSUSIE KIMStart: 13-79-0327JND GLUCOSE FINGERSTICKSUSIE KIMStart: 21-07-6679QJDFQQYBG PATIENTSUSIE KIMStart: 49-00-2953UAIV GLUCOSESUSIE KIMStart: 84-28-7134PII GLUCOSE FINGERSTICKSUSIE KIMStart: 59-76-6765YHPZTTBJ REMOVAL MICHAELA KIMStart: 65-99-1180GHJM GLUCOSESUSIE KIMStart: 94-61-2674CPRL BIPAP OR CPAPSUSIE KIMStart: 62-41-2989MICUTZVL OXYGEN THERAPY PROTOCOLSUSIE KIMStart: 45-73-1402FYI GLUCOSE FINGERSTICKSUSIE KIMStart: 27-76-2593WZKUF METABOLIC PANEL MICHAELA KIMStart: 60-69-4954GRB WITH AUTO DIFFERENTIALSUSIE KIMStart: 04-13-2017 POCT GLUCOSESUSIE KIMStart: 03-95-5971XOYZTX AND OUTPUTSUSIE KIMStart: 14-25-8533CFZ GLUCOSE FINGERSTICKSUSIE KIMStart: 65-72-8935ZIOK GLUCOSESUSIE [place] Start: 85-87-8486OCC GLUCOSE FINGERSTICKSUSIE KIMStart: 92-46-2517BFTH GLUCOSE MICHAELA KIMStart: 21-60-3940JSJ GLUCOSE FINGERSTICKSUSIE KIMStart: 33-20-7186BF EVAL AND TREATSUSIE KIMStart: 37-35-7684UP EVAL AND TREATSUSIE KIMStart: 23-99-2943ED CONSULT TO IV TEAMSUSIE KIMStart: 25-96-9098RALA GLUCOSESUSIE [place]STON Start: 81-24-3706AEQH BIPAP OR CPAPSUSIE KIMStart: 50-91-6233ZZJTYDDI OXYGEN THERAPY PROTOCOLSUSIE KIMStart: 78-69-1348FZXIF METABOLIC PANELSUSIE KIMStart: 05-21-7439IBH WITH AUTO DIFFERENTIALSUSIE KIMStart: 29-78-1445VYN GLUCOSE FINGERSTICKSUSIE KIMStart: 14-62-4143JGIK GLUCOSESUSIE KIMStart: 04-12-2017 INTAKE AND OUTPUTSUSIE KIMStart: 18-53-8370JUK GLUCOSE FINGERSTICKSUSIE WESTON Start: 44-61-9965KRCN GLUCOSESUSIE KIMStart: 26-94-0922USK GLUCOSE FINGERSTICK MICHAELA KIMStart: 46-97-8326WFS GLUCOSE FINGERSTICKSUSIE KIMStart: 00-45-7334IOEB GLUCOSESUSIE KIMStart: 05-89-1158UKZ GLUCOSE FINGERSTICKSUSIE KIMStart: 28-41-9780JKZR GLUCOSESUSIE KIMStart: 34-55-2285OTDW BIPAP OR CPAPSUSIE [place]STON Start: 27-45-4709JSGYKCUU OXYGEN THERAPY PROTOCOLSUSIE KIMStart: 92-54-4152KYBQR METABOLIC PANELSUSIE KIMStart: 39-87-9395C-reactive proteinSUSIE KIMStart: 15-59-5755UQR WITH AUTO DIFFERENTIALSUSIE KIMStart: 71-02-9458QFRZ GLUCOSESUSIE KIMStart: 62-26-1631JBHWMN AND OUTPUTSUSIE KIMStart: 72-77-0708EKQMXSVL REMOVAL MICHAELA KIMStart: 93-16-9099HEDUZM ROWE CATHETERSUSIE KIMStart: 07-95-4421WEDZ GLUCOSESUSIE KIMStart: 97-62-0011UDU GLUCOSE FINGERSTICKSUSIE KIMStart: 45-07-9803XRQ GLUCOSE FINGERSTICKSUSIE KIMStart: 75-83-9623DPEHSAAJAAZJB NURSING CARE ORDER (SPECIFY)MICHAELA KIMStart: 80-51-2948UBV GLUCOSE FINGERSTICKSUSIE [place] Start: 22-88-6475AUWYHRZC PATIENTSUSIE KIMStart: 81-26-2820YBNJOCAMZ AND AEROBIC CULTURESUSIE KIMStart: 90-57-9370HYT 12-LEADSUSIE KIMStart: 37-93-6247WPMJ GLUCOSESUSIE KIMStart: 83-72-6814DES GLUCOSE FINGERSTICKSUSIE KIMStart: 54-90-0376OO ARTERIAL PVR LOWER WO EXERCISESUSIE KIMStart: 34-91-1081YZS GLUCOSE FINGERSTICKSUSIE KIMStart: 04-91-2538HL CONSULT TO VASCULAR SURGERYSUSIE [place] Start: 13-03-8934RDNG GLUCOSESUSIE KIMStart: 52-12-9413VNPI BIPAP OR CPAPSUSIE KIMStart: 08-99-9181PCJSHHNC OXYGEN THERAPY PROTOCOLSUSIE KIMStart: 04-10-2017 POCT GLUCOSESUSIE KIMStart: 08-25-4131VTHSNW AND OUTPUTSUSIE KIMStart: 48-14-9691CAE GLUCOSE FINGERSTICKSUSIE KIMStart: 67-94-8597Vvpnh ankle complete minimum 3 viewsSUSIE KIMStart: 75-01-4224UJFCS LEG/FOOT BOOTSUSIE KIMStart: 47-39-0271Gpwwq foot complete minimum 3 viewsSUSIE KIMStart: 49-00-6918JNDP GLUCOSESUSIE KIMStart: 40-70-1302Uyc lower extrem oth/thn jt w/o & w/contr matr MICHAELA ONTIVEROSStart: 67-10-2979YZOPNQIYY A + B, PCRSUSIE KIMStart: 41-61-0741CZTJO INFLUENZA A/B ANTIGENSSUSIE KIMStart: 98-74-3895UXC RAPID ANTIGENSUSIE KIMStart: 34-73-1735GGTJ CARB CONTROLSUSIE KIMStart: 35-41-6332GNCDTOC NUTRITION SUPPLEMENTSSUSIE KIMStart: 27-75-2571LAGHBYEAINBGN NURSING CARE ORDER (SPECIFY) MICHAELA ONTIVEROSStart: 34-59-0526KPMTPMZ WOUND DRAINAGESUSIE KIMStart: 69-38-5906RD CONSULT TO PODIATRYSUSIE KIMStart: 22-21-5485ZMQQ GLUCOSESUSIE KIMStart: 00-74-0135ODN GLUCOSE FINGERSTICKSUSIE KIMStart: 91-64-8234U-reactive protein MICHAELA ONTIVEROSStart: 70-48-9538DER WITH AUTO DIFFERENTIALSUSIE KIMStart: 04-09-2017 COMPREHENSIVE METABOLIC PANEL W/ REFLEX TO MG FOR LOW KSUSIE KIMStart: 60-93-6831ZESCLZUBSJ W6CWUFLL KIMStart: 06-01-3013HNZAEFLOGWUDM RATESUSIE WESTON Start: 58-93-7663FYGHM OSTOMY EVAL AND TREATSUSIE KIMStart: 57-13-5811QMWQPBJ, URINE CATHETERSUSIE KIMStart: 93-01-6598YTJG GLUCOSESUSIE KIMStart: 04-09-2017 HOME BIPAP OR CPAPSUSIE KIMStart: 98-36-9222PTUWVNAW OXYGEN THERAPY PROTOCOL MICHAELA ONTIVEROSStart: 93-95-6138DHC GLUCOSE FINGERSTICKSUSIE KIMStart: 48-29-5840GWQA GLUCOSESUSIE KIMStart: 93-52-3728YPKLKNP HEELS OFF OF BEDSUSIE KIMStart: 29-88-4906QZSR OF BED 60 DEGREES OR LESSSUSIE KIMStart: 94-09-1153QDWMMDQ COMMUNICATIONSUSIE KIMStart: 05-39-1492HAAI PATIENTSUSIE KIMStart: 04-09-2017 CATHETER REMOVALSUSIE KIMStart: 94-62-6100LYNT BIPAP OR CPAPSUSIE KIMStart: 49-94-6614RBLFNU ROWE CATHETERSUSIE KIMStart: 77-36-0065WNJ GLUCOSE FINGERSTICK MICHAELA KIMStart: 29-74-0420TAIIM WEIGHTSSUSIE KIMStart: 85-29-3250JMOI STAINSUSIE KIMStart: 47-07-2142TVHADD AND OUTPUTSUSIE KIMStart: 70-11-3541SV CONSULT TO INFECTIOUS DISEASESSUSIE KIMStart: 92-76-7667FHYXB CULTURESUSIE KIMStart: 85-69-1492RXGVMBE ISOLATIONSUSIE KIMStart: 53-24-2632LVHVMYN EXTREMITYSUSIE WESTON Start: 97-15-5704NQOZ CODESUSIE KIMStart: 66-02-9577PHMJPEMZ OXYGEN THERAPY PROTOCOLSUSIE KIMStart: 46-92-8983QSGHQN PHYSICIAN (SPECIFY)MICHAELA WESTONStart: 82-46-7334NVGJIT FOR NO MECHANICAL VTE PROPHYLAXISSUSILuciana art: 04-09-2017 VITAL SIGNSSUSILuciana [facility]: 40-80-3584RAHKEIG STATUS (DIRECT)MICHAELA ONTIVEROSAppendix structure (body structure)Jovanny VILLA Back structure, excluding neck (body structure)Jovanny VILLA CystoscopyPasaint elizabeth hebronk VILLA History of appendectomyPatrick VILLA Insertion of inferior vena caval filterPaRacemi Urodynamic studiesPaRacemi Plan of Treatment DateCare ActivityDetailAuthorStart: 41-72-7489Bqspijomm for malignant neoplasm of colonBON CENTERVILLEStart: 02-01-2025 End: 73-43-9123Iofzxyv encounter kjxxlocpj37/06/2025 10:30 AM EST [facility] [address] [place] [phone] Fidel Abbott MD [address] [place] [address] [facility] FMStart: 20-10-8876StjxxtnbrCritical access hospitalStart: 52-04-2530Hwkst BMI ScreeningAdult BMI ScreeningAdena Pike Medical Center SystemStart: 99-87-2139Cnwcjon ScreeningTobacco ScreeningFirstHealth Moore Regional Hospitaltart: 02-39-5320Rsflqzi CultureAerobic CultureWooster Community Hospitaltart: 88-69-3797Qagyizwck CultureAnaerobic [facility] Start: 36-64-1346Mpuqfyawkrv observation [Identifier] in Unspecified specimen by Gram stainWooster Community Hospitaltart: 10-02-2024 End: 89-54-4373ItpgftzvxWooster Community Hospitaltart: 06-63-0207Nsdsy brachial pressure indexOhio State Health System CenterStart: 07-31-2024 End: 95-86-2490Dxrft metabolic 1998 panel - Serum or PlasmaBasic metabolic panel Lab Routine Annual physical exam Expected: 07/31/2024 (Approximate), Expires: 07/31/2025IA HealthcareComment on above:Expected: 07/31/2024 (Approximate), Expires: 07/31/2025Start: 07-31-2024 End: 94-54-8668VOV W Auto Differential panel - BloodCBC and differential Lab Routine Annual physical exam Expected: 07/31/2024 (Approximate), Expires: 0 07/31/2025 HealthcareComment on above:Expected: 07/31/2024 (Approximate), Expires: 07/31/2025Start: 07-31-2024 End: 63-06-9737Rieyqsvnvg A1c/Hemoglobin.total in BloodHemoglobin A1c Lab Routine Annual physical exam Expected: 07/31/2024 (Approximate), Expires: 07/31/2025IA HealthcareComment on above:Expected: 07/31/2024 (Approximate), Expires: 07/31/2025Start: 07-31-2024 End: 58-15-4763Ljwgqxy function 2000 panel - Serum or PlasmaHepatic function panel Lab Routine Annual physical exam Expected: 07/31/2024 (Approximate), Expires: 07/31/2025 HealthcareComment on above:Expected: 07/31/2024 (Approximate), Expires: 07/31/2025Start: 07-31-2024 End: 65-91-3402Nvbep 1996 panel - Serum or PlasmaLipid panel Lab Routine Annual physical exam Expected: 07/31/2024 (Approximate), Expires: 07/31/2025[facility] HealthcareComment on above:Expected: 07/31/2024 (Approximate), Expires: 07/31/2025Start: 07-31-2024 End: 19-61-3930Hdcdkoodqwew/Creatinine panel in random UrineMicroalbumin / creatinine, urine ratio Lab Routine Type 2 diabetes mellitus with hyperglycemia, without long-term current use of insulin ([facility]) Expected: 07/31/2024 (Approximate), Expires: 07/31/2025[facility] Work Phone: Comment on above:Expected: 07/31/2024 (Approximate), Expires: 07/31/2025Start: 07-31-2024 End: 33-84-1180Vforhqfr specific Ag [Mass/volume] in Serum or PlasmaPSA Lab Routine Annual physical exam Expected: 07/31/2024 (Approximate), Expires: 07/31/2025NOMS HealthcareComment on above:Expected: 07/31/2024 (Approximate), Expires: 07/31/2025Start: 07-31-2024 End: 22-94-1617Oqpcbgmyhef [Units/volume] in Serum or PlasmaTSH Lab Routine Annual physical exam Expected: 07/31/2024 (Approximate), Expires: 07/31/2025NOIA HealthcareComment on above:Expected: 07/31/2024 (Approximate), Expires: 07/31/2025Start: 07-31-2024 End: 10-63-1665Wtcdqzn encounter zvdauwnfq55/05/2025 10:45 AM EDT Office Visit [facility] [address] [place] [phone] Fidel Abbott MD [address] [place] [phone] ArrivedNOMS CWM FMComment on above:ArrivedStart: 05-22-2024 End: 61-18-3537Jcsmjil encounter fkdoytlzb09/24/2025 1:15 PM EST Office Visit [facility] [address] [place] [address] Fidel Abbott MD [address] [place] [phone] [facility] FMStart: 04-20-2024 End: 89-16-1871Btvdyar encounter /23/2025 1:30 PM EST Office Visit [facility] [place] [address] [place] [phone] Iraj Valdivia MD [address] [place], [place] [phone] [facility]: 04-13-2024 End: 76-04-2017Znqtihn encounter gyksgadxx39/16/2025 2:00 PM EST Office Visit [facility] [address] [phone] Iraj Valdivia MD [address] [place], [place] [phone] [facility] Hospitalt[facility]: 01-20-2024 End: 18-04-8702Rwwfaco encounter aptyjxgmw61/24/2024 11:45 AM EDT Office Visit [facility] [address] [place] [address] Fidel Abbott MD [address] [place] [address] ArrivedNOALL[facility] FMComment on above:ArrivedStart: 17-49-7430HqotmdkkpMemorial Hospital Miramartart: 11-18-2023 End: 70-02-2504Tkxepbg, urine, randomAlbumin, urine, random Lab Routine Type 2 diabetes mellitus with hyperglycemia, without long-term current use of insulin ([facility]) Expected: 11/18/2023 (Approximate), Expires: 11/17/2024[facility] Work Phone: Comment on above:Expected: 11/18/2023 (Approximate), Expires: 11/17/2024Start: 11-18-2023 End: 84-97-5670Booan metabolic 1998 panel - Serum or PlasmaBasic metabolic panel Lab Routine Encounter for long-term (current) use of medications Expected: (Approximate), Expires: 11/17/2024NOIA HealthcareComment on above: Expected: 11/18/2023 (Approximate), Expires: 11/17/2024Start: 11-18-2023 End: 16-54-8943AFX W Auto Differential panel - BloodCBC and differential Lab Routine Encounter for long-term (current) use of medications Expected: 10/28 (Approximate), Expires: 11/17/2024NOIA HealthcareComment on above: Expected: 11/18/2023 (Approximate), Expires: 11/17/2024Start: 11-18-2023 End: 98-65-5086Liseueefyv A1c/Hemoglobin.total in BloodHemoglobin A1c Lab Routine Type 2 diabetes mellitus with hyperglycemia, without long-term current use of insulin ([facility]) Expected: 11/18/2023 (Approximate), Expires: 11/17/2024 N[facility] HealthcareComment on above:Expected: 11/18/2023 (Approximate), Expires: 11/17/2024Start: 11-18-2023 End: 75-26-1023Pnyveii function 2000 panel - Serum or PlasmaHepatic function panel Lab Routine Encounter for long-term (current) use of medications Expected: 11/18/2023 (Approximate), Expires: 11/17/2024[facility] HealthcareComment on above: Expected: 11/18/2023 (Approximate), Expires: 11/17/2024Start: 11-18-2023 End: 68-62-6372Cmrpn 1996 panel - Serum or PlasmaLipid panel Lab Routine Type 2 diabetes mellitus with hyperglycemia, without long-term current use of insulin ([facility]) Expected: 11/18/2023 (Approximate), Expires: 11/17/2024[facility] Healthcare Comment on above:Expected: 11/18/2023 (Approximate), Expires: 11/17/2024Start: 10-18-2023 End: 89-33-2069Zpimkxj encounter qcohpfyxp98/22/2024 10:00 AM EDT Office Visit [facility] [address] [place] [address] Fidel Abbott MD [address] [place] [address] NOMS CWSam FMStart: 04-92-8070RCN test (Diabetes, CKD 3-4, OR last GFR 15-59) GFR test (Diabetes, CKD 3-4, OR last GFR 15-59)[facility] CENTERStart: 54-99-4586Kmmjr screening for proteinDiabetes: Urine Protein ScreeningSaint Mary's Hospital of Blue SpringsStart: 49-41-3444Jydvwaiqrt A1c flhykisjoudA5D test (Diabetic or Prediabetic)[facility]ENTERStart: 29-30-3481UDU test (Diabetes, CKD 3- 4, OR last GFR 15-59)GFR test (Diabetes, CKD 3-4, OR last GFR 15-59)[facility] Hospitalart: 99-83-7597Vrchghmsr for malignant neoplasm of colonBON CENTERVILLEStart: 19-39-0583NXJ test (Diabetes, CKD 3-4, OR last GFR 15-59)GFR test (Diabetes, CKD 3-4, OR last GFR 15-59)[facility] [employer] Start: 29-83-7520Ygfqptfxu for malignant neoplasm of colonBON CENTERVILLEStart: 56-22-7515Mlwli panelLipidsBON CENTERVILLEStart: 37-77-8183XSA test (Diabetes, CKD 3-4, OR last GFR 15-59)GFR test (Diabetes, CKD 3-4, OR last GFR 15-59)[facility] [employer]IGHStart: 23-88-9614QvmulmplwWooster Community Hospitaltart: 05-20-2023 End: 25-51-0167Qmmxqak encounter ngucgoplp75/22/2024 3:10 PM EST Office Visit [facility] [address] [facility] [address] [place] [phone] Jonathan Moffett DPM [address] [facility] [address] [place] [address] N[facility] CARLOS PODIATRYStart: 05-06-2023 End: 12-23-1236Xxwkjah encounter /08/2024 10:20 AM EST Office Visit [facility] [address] [facility] [address] [place] [phone] Jonathan Moffett DPM [address] [facility] [address] [place] [address] NOMS CI PODIATRYStart: 97-26-1391Mqjwvmjwr vaccination Flu vaccine (Season Ended)[facility]ENTERStart: 06-22-1040Wyaggwdjuk A1c measurementDiabetes: Hemoglobin Q5WBJRUSaint Mary's Hospital of Blue SpringsStart: 09-25-2022 End: 39-34-8870Zvqdmpw encounter /30/2023 Office Visit [facility] 07-08[facility]2022 End: 11-39-1063Ajayoak encounter tklvfaamc17/12/2023 Office Visit [facility] 2022 End: 99-51-9106Muszuwads to same day surgery fhjbqb6607/07/2022 Surgery IP Unit Angeles Nagy MD [address] [place] [address], [address] [place] [address] CYSTOSCOPY TRANSURETHROTOMY- DVIU WITH POSS TRANSURETHRAL RESECTION OF BLADDER TUMORMTHZ ORComment on above:CYSTOSCOPY TRANSURETHROTOMY- DVIU WITH POSS TRANSURETHRAL RESECTION OF BLADDER TUMORStart: 2022 End: 34-62-6093Tftfblevjneouvynm w/internal urethrotomy maleCYSTOSCOPY TRANSURETHROTOMY Cauda equina syndrome (HCC) 2022 8:30 AM [facility] HospitalStart: 32-54-4638Cihnveusfz hospital visit by /11/2023 Hospital Encounter IP Unit Angeles Nagy MD [address] [place] [address], [address] [place] [address] MTHZ ORStart: 07-01-2022 End: 64-25-8163Yvwqb metabolic 2000 panel - Serum or PlasmaBasic Metabolic Panel Lab Routine Acute kidney injury (HCC) Expected: 07/01/2022, Expires: 06/27/[address] [facility] [employer] Phone: comment on above:Expected: 07/01/2022, Expires: 06/27/2023Start: 07-01-2022 End: 41-41-4044JNU W Auto Differential panel - BloodCBC with Auto Differential Lab Routine Acute kidney injury (HCC) Iron deficiency anemia, unspecified iron deficiency anemia type Expected: 07/01/2022, Expires: 06/27/2023 [employer] Phone: comment on above:Expected: 07/01/2022, Expires: 06/27/2023Start: 08-56-7463Qfmtja Wellness Visit (AWV)Annual Wellness Visit (AWV)[facility] LinkStormLos [place]: 11-29-9269Otcjlxugr vaccinationFlu vaccine (#1)[facility]ITALSmallRiversLos Angeles: 04-38-9337Owppypid foot examinationDiabetic foot examFALL RIVER HOSPITALAlluring Logic Doctors' Hospitalart: 06-42-1491Omjplryisi A1c sqtikdavrqcC4W test (Diabetic or Prediabetic)[facility]ITALSmallRiversLos Angeles: 53-43-2227Zirsh panelLipidsBON HONORHE[facility] LIN[facility] MEDICAL CENTERCrocodoc CENTERVILLEZebra Technologies [facility]: 08-84-1451Dfcfu screening for protein [facility]ITALSmallRiversLos Angeles: 91-82-2370Jqwncvteocdlse of varicella zoster vaccineZoster (Shingles) Vaccine (1 of 2)[facility] SystemStart: 80-00-0930Zvdgiypm vaccine (1 of 2)Shingles vaccine (1 of 2)[facility]OSPITALAlluring Logic [facility]: 48-57-9133Feohkpaal for malignant neoplasm of colonS[facility]SIDE [facility] [employer] [facility]: 31-20-3683RQrL,Tdap and Td Vaccines (1 - Tdap)DTaP,Tdap and Td Vaccines (1 - Tdap)[facility] Hospitaltart: 90-04-6397LJsH/Tdap/Td vaccine (1 - Tdap)DTaP/Tdap/Td vaccine (1 - Tdap)[facility] HOSPITALCrocodoc CENTERVILLEZebra Technologies [facility]: 12-32-1018Wsluy screening for proteinDiabetes: Urine Protein ScreeningSaint Mary's Hospital of Blue SpringsStart: 55-70-5584Fjlpp BMI Follow Up PlanAdult BMI Follow Up Plan [facility] Hospitaltart: 78-47-4694Iaaxzgrk screeningDiabetic retinal exam [facility]ENTERStart: 14-04-8142Nyjoyonca C screeningHepatitis C screen [facility]ENTERStart: 50-41-0367JCX screeningHIV screenB[facility] SECOURS DEPAUL MEDICAL CENTERStart: 03-66-1778Jgruhjevzi MonitoringDepression MonitoringB[facility]OU[facility] DEPAUL MEDICAL CENTERStart: 63-06-1037Whmgymyrcr ScreeningDepression Screening [facility] Hospitaltart: 37-97-1704Ffyxotkp screeningDiabetes: Retinopathy ScreeningSaint Mary's Hospital of Blue SpringsStart: 34-39-4642Otmuvjkinswu 0-64 years Vaccine (1 - PCV)Pneumococcal 0-64 years Vaccine (1 - PCV)[facility]ENTERStart: 72-12-4493LJFVF-19 Vaccine (#1)COVID-19 Vaccine (#1)[facility] Start: 66-38-8011Eacrhhqzx for malignant neoplasm of colonNOIA HealthcareAEROBIC CULTUREAEROBIC CULTURE Lab Routine 10/02/2024 12:38 PM [facility] Work Phone: ANAEROBIC CULTUREANAEROBIC CULTURE Lab Routine 10/02/2024 12:38 PM EDSt. Jude Children's Research HospitalBacteria identified in Unspecified specimen by Aerobe cultureCleveland Clinic Union HospitalBacteria identified in Unspecified specimen by Anaerobe cultureCleveland Clinic Union Hospital End: 55-14-5097Uuuik metabolic 2000 panel - Serum or PlasmaBasic Metabolic Panel Lab Routine Stage 3a chronic kidney disease ([facility]) 1 Occurrences starting 1 until 01/16/2025[facility] Work Phone: Comment on above:1 Occurrences starting 01/17/2024 until 01/16/2025 End: 86-00-5927MFT panel - Blood by Automated countCBC without diff Lab Routine Stage 3a chronic kidney disease ([facility]) 1 Occurrences starting 01/17/2024 until 01/16/2025[facility] SystemComment on above:1 Occurrences starting 01/17/2024 until 01/16/2025 End: 89-95-4614NUP W Auto Differential panel - BloodCBC auto differential Lab Routine Daily for 5 Days starting 06/23/2022 until 06/27/2022, 4 [employer] Phone: comment on above:Daily for 5 Days starting 06/23/2022 until 06/27/2022, 4 completedCulture, Wound Aerobic OnlyCulture, Wound Aerobic Only Microbiology [employer] Label Print 06/25/2022 12:20 PM EDTBJobs The Word Work Phone: End: 38-87-5636Ykkxztdtnn and HematocritHemoglobin and Hematocrit Lab Routine Post Transfusion Post Transfusion Post Transfustion until discontinued starting 06/24/2022, 1 [employer] Phone: comment on above:Post Transfusion Post Transfusion Post Transfustion until discontinued starting 06/24/2022, 1 completed End: 09-49-9249Gtlqiwlkl [Mass/volume] in Serum or PlasmaMagnesium Lab Routine Stage 3a chronic kidney disease ([facility]) 1 Occurrences starting 01/17/2024 un til 01/16/2025ProW[employer] Intelligence SystemComment on above:1 Occurrences starting 01/17/2024 until 01/16/2025Oxygen therapy [Minimum Data Set]Initiate Oxygen Therapy Protocol Respiratory Care Routine Daily until discontinued starting 06/22/2022 [employer] Phone: comteis on above:Daily until discontinued starting 06/22/2022 End: 70-76-6366Wjthnnxhyeu Hormone, intactParathyroid Hormone, intact Lab Routine Stage 3a chronic kidney disease ([facility]) 1 Occurrences starting 01/17/2024 until 01/16/2025Pro[employer] Intelligence SystemComment on above:1 Occurrences starting 01/17/2024 until 01/16/2025Patient EducationKnow your [facility] Work Phone: Patient referralOhio State Health System Ctr Work Phone: End: 31-91-3267Ryqgbywmw [Mass/volume] in Serum or PlasmaPhosphorus Lab Routine Stage 3a chronic kidney disease ([facility]) 1 Occurrences starting 01/17/2024 u ntil 01/16/2025ProW[employer] Intelligence SystemComment on above:1 Occurrences starting 01/17/2024 until 01/16/2025 End: 09-98-0945HEMPODR RBC (CROSSMATCH), 1 UnitsPREPARE RBC (CROSSMATCH), 1 Units Blood Bank Routine Once for 1 Occurrences starting 06/24/2022 until 06/24/2022ON [employer] Phone: comicoi on above:Once for 1 Occurrences starting 06/24/2022 until 06/24/2022 End: 48-31-0479Qhqvdvp creat ratioProtein creat ratio Lab Routine Stage 3a chronic kidney disease ([facility]) 1 Occurrences starting 01/17/2024 until 01/16/2025ProEnvision SolarComment on above:1 Occurrences starting 01/17/2024 until 01/16/2025 End: 14-36-1165Bmmelijo PathologySurgical Pathology Lab Routine One Time for 1 Occurrences starting 06/25/2022 until 06/25/2022ON [employer] Phone: comment on above:One Time for 1 Occurrences starting 06/25/2022 until 06/25/2022Surgical PathologySurgical Pathology Lab Routine Hyperkalemia Release Upon Ordering for 1 Occurrences starting 06/26/2022 [employer] Phone: comlvjj on above:Release Upon Ordering for 1 Occurrences starting 06/26/2022 End: 34-78-1113MCMPCJMW PATHOLOGY REPORTSURGICAL PATHOLOGY REPORT Lab Routine Once for 1 Occurrences starting 06/25/2022 until 06/25/2022 [employer] Phone: comment on above:Once for 1 Occurrences starting 06/25/2022 until 06/25/2022 End: 25-00-6437ADAWROUG PATHOLOGY REPORTSURGICAL PATHOLOGY REPORT Lab Routine Once for 1 Occurrences starting 06/26/2022 until 06/26/2022ON [employer] Phone: Comment on above:Once for 1 Occurrences starting 06/26/2022 until 06/26/2022 End: 41-54-5295BprtuwwaruBmgddzmmzs Lab Routine Stage 3a chronic kidney disease ([facility]) 1 Occurrences starting 01/17/2024 until 01/16/2025Pro[facility] Health SystemComment on above:1 Occurrences starting 01/17/2024 until 01/16/2025 End: 31-66-5782Favuqxo D 25 hydroxyVitamin D 25 hydroxy Lab Routine Stage 3a chronic kidney disease ([facility]) 1 Occurrences starting 01/17/2024 until 01/16/2025ProDale Medical Center Health SystemComment on above:1 Occurrences starting 01/17/2024 until 01/16/2025[facility] Immunizations Immunization DateImmunizationNotesCare UdaiqbhfZddygjox07-22-8329xdknetbct, injectable, quadrivalent, preservative freeMD Fidel Abbott Work Phone: [facility]11-16-2023influenza virus vaccine, unspecified formulationFidel Abbott MD Work Phone: [facility] SpringsQudjdwjdie91-16-2412heemncnmc virus vaccine, unspecified formulationBalwindertricwillam [employer] [facility] HospitalComment on above:Result Comment: 2022-11-09: VIS DATE: 11/02/2014 21-87-8652nshcqoujd, injectable, quadrivalent, preservative freeFidel Abbott MD Work Phone: bon CENTERVILLEGDKYIH43-42-7817Rjoijkosa Vaccine, unspecified formulationFidel Abbott MD Work Phone: bon CENTERVILLEPOUGWA11-27-6847pymhqhjea virus vaccine, unspecified formulationJovanny [employer] [facility]10-06-2015influenza, seasonal, injectableMD Fidel Abbott Work Phone: [facility]10-15-2014influenza virus vaccine, unspecified formulationPatricwillam VILLA [facility] Payers DatePayer CategoryPayerPolicy [id number] Cross Blue Shield Managed Care - PPOANTHEM Member Subscriber Plan / Payer (Effective 2022-Present) Name: Ganga Stinson Relation to Subscriber: Unknown Name: Pradip Stinson Date of : 1960 Address: [place] [address] Payer ID: [id number] (NAIC) Type: Not on file Address: [place] [id number] 08-38-6786[facility] [id number] BCBS [id number] 2021- [id number] [place] [phone] [id number] [id number] 2.16.840.1.299694.3.579.2.03180-24-8658Veykdyg7359212 2.16.840.1.338805.3.579.2.12208-86-2938Bairjod3932327 2.16.840.1.992425.3.579.2.95859-48-9823Mdzbcqv84051889 2.16.840.1.934153.3.579.2.02599-75-5233Srroxdo01794288 2.16.840.1.959517.3.579.2.33877-10-8351Sqjiuho27467166 2.16.840.1.873432.3.579.2.98105-83-6348Yjwaxxg78623276 2.16.840.1.953809.3.579.2.95320-93-9924Sddxofd56888802 2.16.840.1.197422.3.579.2.38927-85-5051Hqsqfhn73388864 2.16.840.1.349093.3.579.2.53618-97-2106Yrwxtak28557863 2.16.840.1.862633.3.579.2.78567-64-2271Qudjvyb43857913 2.16.840.1.724289.3.579.2.89531-97-7292Cirsadd95018777 2.16.840.1.351788.3.579.2.219396-79-4965Frblgoa70799219 2.16.840.1.534537.3.579.2.014201-81-8501Osmrzxy3656959 2.16.840.1.545402.3.579.2.973309-59-0287Payapcs0974941 2.16.840.1.137433.3.579.2.198207-15-8791Boorsxk3656511 2..840.1.883021.3.579.2.772697-65-1528Yeboxqy19673297 2..840.1.099020.3.579.2.68640-51-3042Dyslexm29076369 2..0.1.401040.3.579.2.727 1960Medicare5A90RT3QW45 1960Unknown KML868[id number] Health Insurance 1gr9886u-g6b1-241d-9[id number] 2..840.1.0[id number] 2.840.1.688897.3.579.2.531 [id number] 2.840.1.4[id number] 2.0.1.0[id number] 2.840.1.412462.3.579.2.531 Social History DateTypeDetailFacilityStart: 01-27-2022 End: 66-77-9778Awanoeg smoking status NHISNever smoked tobacco (finding) [facility]: 50-15-8844Rrp [facility]: 06-22-2022 End: 39-21-3894Zdrkudw use and exposureSmokeless tobacco non-userBON [employer] Phone: start: 06-22-2022 End: 64-82-0532Ptoucvc intakeCurrent non-drinker of alcohol (finding)[facility] [employer] Work Phone: start: 15-44-1400Afu Assigned At BirthNot on fileDIGNITY HEALTH ST. [facility] [employer] Work Phone: start: 06-12-2022 End: 31-77-0828Txqrzhnb to SARS-CoV-2 (event)Not sureDIGN[facility] ST[facility] [employer] Start: 87-43-4718Dyqgkdh SDOH Alcohol Zvbanpgzc1NSA [employer] Work Phone: start: 02-55-6549Oepjdxz SDOH Alcohol Std Eupojk4FIP [employer] Work Phone: start: 79-24-4163Opvmcoo smoking statusNeverExecutive Urology of [facility]ult[facility] Hospitaltart: 04-29-2023 End: 54-64-2499Hac Assigned At BirthSamaritan North Health Centertart: 04-29-2023 End: 56-79-7693Aovvvzv intakeLifetime non-drinker (finding)[facility] HealthcareStart: 04-29-2023 End: 71-78-5977Ypylxjr of Social functionNOMS HealthcareStart: 11-01-2014 End: 95-15-5709RroJppb (finding)[facility] SystemDo you belong to any clubs or organizations such as nondenominational groups, unions, fraternal or athletic ronni ups, or school groups?NoNOMS HealthcareAre you now , , , , never or living with a partner?MarriedNOMS HealthcareHow often do you have 6 or more drinks on 1 occasion?NeverNOMS Healthcare(I/We) worried whether (my/our) food would run out before (I/we) got money to buy more. Never trueNOMS HealthcareSexual OrientationExecutive Urology of [facility] Medical Equipment Procedure CodeEquipment CodeEquipment Original TextEquipment IdentifierDates Wound debridementEPIFIX MESH SHEET 4X4.5CMFDAStart: 16-70-2532Wwmnt debridement Collagen wound matrix dressing()[id number] FDAStart: 46-82-2315Ufjzk debridementCollagen wound matrix dressing ()[id number] FDAStart: 62-06-8968Sxxhw debridement EPIFIX MESH SHEET 4X4.5CMFDAStart: 38-11-9004Ooxpk debridementEPIFIX MESH SHEET 4X4.5CMFDAStart: 02-21-0915Ylyfe debridementEPIFIX MESH SHEET 4X4.5CMFDAStart: 63-73-9274Zwfly debridementEPIFIX MESH SHEET 4X4.5CMFDAStart: 02-22-8763Whegy debridementEPIFIX MESH SHEET 4X4.5CMFDAStart: 73-23-5823Qkjmi debridementEPIFIX MESH SHEET 4X4.5CMFDAStart: 77-43-6688Pckht debridementEPIFIX MESH SHEET 4X4.5CM FDAStart: 19-37-2644Skdpn debridementEPIFIX MESH SHEET 4X4.5CMFDAStart: 13-64-5516Ztxjbpgmwl, toeCollagen wound matrix dressing ()[id number] FDAStart: 28-57-0384Qzfsr Subst Resorbable Mini [id number]: 71-47-6756Oyorxih on above:Description: tobramyicin recostituted with 10ml normal saline ref # [id number] exp 07/27/2018 lot #[id number] Goals DatePatient GoalDesired Activity/State Functional Status VilpXrrpqmvxzfShqhvwGhpgcgvb92-88-7938Etkie score [AUDIT-C]-1 10/17/2023 1:08 PM EDT [facility] PrinceSS[facility] JanesvilleWutnmnkydg47-64-5521Jvewdyczdq statusPatient [facility]07-21-2024How often do you have 6 or more drinks on 1 occasion?Never 10/17/2023 1:08 PM EDT Jonelle Prince [place] [address]Tvpmxrxjxl95-41-5648Gfxclugspn StatusN/AExecutive Urology of [facility] Hospital Clinical Notes 07-29-2021 to 01-23-2025 Note Date & IsgcNqanPkukvjmv49-68-9580 Evaluation note* Diagnosis Onset Date Resolution Status Admit Date Diabetes mellitus due to underlying cond ition with diabetic neuropathy, wit acuteOctober 2024 10:54amPressure injury of left ischium, stage 4acute January 23, 2025 10:54amPressure injury of right ischium, stage 4acuteOctober 2024 10:54amStage IV pressure ulcer of sacral regionacuteOctober 2024 10:54amCauda equina spinal cord injurychronicOctober 2024 10:54am [facility] Work Phone: 1(966) 144-458410-28-2025 Evaluation note* Diagnosis Onset Date Resolution Status [...] with hyperglycemia, without long-term current useacuteNov2024 9:41am [facility] Work Phone: 1(175) 324-343910-20-2025 Hospital Discharge instructions Patient Education 01/15/2025 11:30:05 Urethral Stricture Urethral Stricture Urethral stricture is when the tube that drains pee (urine) from the bladder out of the body (urethra) becomes too narrow. The urethra can become narrow because of scar tissue, infection, surgery, errol injury. This can make it difficult to pee (urinate). In females, the urethra opens above the vaginal opening. In males, the urethra opens at the tip of the penis, and the urethra is much longer than it is in females. Because of the length of the male urethra, urethral stricture is much more common in males. What are the causes? In males and females, common causes of urethral stricture include: Urinary tract infection (UTI). Sexually transmitted infection (STI). Using a soft tube in the urethra to drain pee from the bladder (urinary catheter). Urinary tract surgery. In males, common causes of urethral stricture include: A severe injury to the pelvis. Prostate surgery. Injury to the penis. In many cases, the cause of urethral stricture is not known. What increases the risk? You are more likely to develop this condition if you: Are male. Males who have had prostate surgery are at risk of developing this condition. Use a urinary catheter. Have had urinary tract surgery. What are the signs or symptoms? The main symptom of this condition is trouble peeing. This may cause decreased pee flow, dribbling,or spraying of pee. Other symptom of this condition may include: Frequent UTIs. Blood in the pee. Pain when peeing. Swelling of the penis in males. Not being able to pee. How is this diagnosed? This condition may be diagnosed based on: Your medical history and a physical exam. Tests of your pee to check for infection or bleeding. X-rays. Ultrasound. Retrograde urethrogram. With this test, a dye is injected into the urethra and then an X-ray is taken. Urethroscopy. This is when a thin tube with a light and camera on the end (urethroscope) is used tolook at the urethra. A CT scan or MRI. How is this treated? This condition is treated with surgery or other procedures. The type of surgery that you have depends on the severity of your condition. You may have: Urethral dilation. In this procedure, the narrow part of the urethra is stretched open (dilated) with dilating instruments or a small balloon. Urethrotomy. In this procedure, a urethroscope is placed into the urethra, and the narrow part of the urethra is cut open with a surgical blade or laser inserted through the urethroscope. Urethroplasty. In this procedure, an incision is made in the urethra and the narrow part is removed. Then, the urethra is reconstructed. Follow these instructions at home: Take lnye-yjf-uaiigmi and prescription medicines only as told by your health care provider. If you were prescribed antibiotics, take them as told by your provider. Do not stop using the antibiotic even if you start to feel better. Drink enough fluid to keep your pee pale yellow. Keep all follow-up visits. Your provider will check your healing and adjust your treatment plan as needed. Contact a health care provider if: You have frequent peeing or you are only peeing small amounts often. You feel the need to pee urgently. You have pain or burning when you pee. Your pee smells bad or unusual. Your pee is bloody or cloudy. You have pain in your lower abdomen or back. Your genital area is swollen, bruised, or discolored. This includes: ?The penis, scrotum, and inner thighs for males. ?The outer genital organs (vulva) and inner thighs for females. You have a fever. You develop swelling in your legs. Get help right away if: You cannot pee. You have trouble breathing. These symptoms may be an emergency. Get help right away. Call 911. Do not wait to see if the symptoms will go away. Do not drive yourself to the hospital. This information is not intended to replace advice given to you by your health care provider. Make sure you discuss any questions you have with your health care provider. Document Revised: 01/07/2023 Document Reviewed: 01/07/2023 [employer] Patient Education 2023 [employer]. Follow Up Care 01/11/2025 11:29:22 With:ALLEN NAZARIO, Jovanny Christie, URL Address: [address] [place] [phone] When: Unknown Comments:sched cysto/UD [facility] 10-20-2025 NotePatient Education Urology Urethral Stricture Urethral stricture is when the tube that drains pee (urine) from the bladder out of the body (urethra) becomes too narrow. The urethra can become narrow because of scar tissue, infection, surgery, errol injury. This can make it difficult to pee (urinate). In females, the urethra opens above the vaginal opening. In males, the urethra opens at the tip of the penis, and the urethra is much longer than it is in females. Because of the length of the male urethra, urethral stricture is much more common in males. What are the causes? In males and females, common causes of urethral stricture include: ??? Urinary tract infection (UTI). ??? Sexually transmitted infection (STI). ??? Using a soft tube in the urethra to drain pee from the bladder (urinary catheter). ??? Urinary tract surgery. In males, common causes of urethral stricture include: ??? A severe injury to the pelvis. ??? Prostate surgery. ??? Injury to the penis. In many cases, the cause of urethral stricture is not known. What increases the risk? You are more likely to develop this condition if you: ??? Are male. Males who have had prostate surgery are at risk of developing this condition. ??? Use a urinary catheter. ??? Have had urinary tract surgery. What are the signs or symptoms? The main symptom of this condition is trouble peeing. This may cause decreased pee flow, dribbling,or spraying of pee. Other symptom of this condition may include: ??? Frequent UTIs. ??? Blood in the pee. ??? Pain when peeing. ??? Swelling of the penis in males. ??? Not being able to pee. How is this diagnosed? This condition may be diagnosed based on: ??? Your medical history and a physical exam. ??? Tests of your pee to check for infection or bleeding. ??? X-rays. ??? Ultrasound. ??? Retrograde urethrogram. With this test, a dye is injected into the urethra and then an X-ray istaken. ??? Urethroscopy. This is when a thin tube with a light and camera on the end (urethroscope) is used to look at the urethra. ??? A CT scan or MRI. How is this treated? This condition is treated with surgery or other procedures. The type of surgery that you have depends on the severity of your condition. You may have: ??? Urethral dilation. In this procedure, the narrow part of the urethra is stretched open (dilated) with dilating instruments or a small balloon. ??? Urethrotomy. In this procedure, a urethroscope is placed into the urethra, and the narrow part of the urethra is cut open with a surgical blade or laser inserted through the urethroscope. ??? Urethroplasty. In this procedure, an incision is made in the urethra and the narrow part is removed. Then, the urethra is reconstructed. Follow these instructions at home: ??? Take dxux-drj-zeuzpdf and prescription medicines only as told by your health care provider. ??? If you were prescribed antibiotics, take them as told by your provider. Do not stop using the antibiotic even if you start to feel better. ??? Drink enough fluid to keep your pee pale yellow. ??? Keep all follow-up visits. Your provider will check your healing and adjust your treatment gail needed. Contact a health care provider if: ??? You have frequent peeing or you are only peeing small amounts often. ??? You feel the need to pee urgently. ??? You have pain or burning when you pee. ??? Your pee smells bad or unusual. ??? Your pee is bloody or cloudy. ??? You have pain in your lower abdomen or back. ??? Your genital area is swollen, bruised, or discolored. This includes: ? The penis, scrotum, and inner thighs for males. ? The outer genital organs (vulva) and inner thighs for females. ??? You have a fever. ??? You develop swelling in your legs. Get help right away if: ??? You cannot pee. ??? You have trouble breathing. These symptoms may be an emergency. Get help right away. Call 911. ??? Do not wait to see if the symptoms will go away. ??? Do not drive yourself to the hospital. This information is not intended to replace advice given to you by your health care provider. Make sure you discuss any questions you have with your health care provider. Document Revised: 01/07/2023 Document Reviewed: 01/07/2023 Elsevier Patient Education ? 2023 [employer] 08-15-2024 Evaluation note* Diagnosis Onset Date Resolution Status Admit Date Diabetes mellitus due to underlying cond ition with diabetic neuropathy, wit acuteMay 2024 10:28amPressure injury of left ischium, stage 4acuteMay 2024 10:28amPressure injury of right ischium, stage 4acuteMay 2024 10:28amStage IV pressure ulcer of sacral regionacuteMay 2024 10:28amCauda equina spinal cord injurychronicMay 2024 10:28amBilateral lower extremity edemaacuteJune 2024 11:16amOpen wound of both legs with complicationacute August 30, 2024 11:16am [facility] Work Phone: 1(947) 658-769105-20-2025 Evaluation note* Diagnosis Onset Date Resolution Status Admit Date Diabetes mellitus due to underlying cond ition with diabetic neuropathy, wit acuteMay 2024 10:28amPressure injury of left ischium, stage 4acuteMay 2024 10:28amPressure injury of right ischium, stage 4acuteMay 2024 10:28amStage IV pressure ulcer of sacral regionacuteMay 2024 10:28amCauda equina spinal cord injurychronicMay 2024 10:28am [facility] Work Phone: 1(455) 990-242605-20-2025 Evaluation note* Diagnosis Onset Date Resolution Status Admit Date Diabetes mellitus due to underlying cond ition with diabetic neuropathy, wit acutey 2024 10:28amPressure injury of left ischium, stage 4acuteMay 2024 10:28amPressure injury of right ischium, stage 4acuteMay 2024 10:28amStage IV pressure ulcer of sacral regionacuteMay 2024 10:28amCauda equina spinal cord injurychronicMay 2024 10:28amBilateral lower extremity edemaacuteJune 2024 11:16amOpen wound of both legs with complicationacute August 30, 2024 11:16amDiabetes mellitus due to underlying condition with diabetic neuropathy, witacuteJuly 2024 10:30amPressure injury of left ischium, stage 4acuteJuly 2024 10:30amCauda equina spinal cord injury chronicJuly 2024 10:30am [facility] Work Phone: 1(446) 260-286305-05-2025 History of Present illness Narrative* Fidel Abbott MD - 07/31/2024 11:20 AM EDTAssociated Problem(s): Class 2 severe obesity due to excess calories with serious comorbidity and body mass index (BMI) of 36.0 to 36.9 in adult ([facility]) Weight loss indicated. * Fidel Abbott MD - 07/31/2024 11:18 AM EDTAssociated Problem(s): Type 2 diabetes mellitus with hyperglycemia, without long-term current use of insulin ([facility]) Reports BS stable and due for A1C. Stick to ADA diet and limit carbs. * Fidel Abbott MD - 07/31/2024 11:18 AM EDTAssociated Problem(s): Major depressive disorder, recurrent episode, mild (HCC) ([facility]) Mood controlled with celexa and continue. * Fidel Abbott MD - 07/31/2024 11:18 AM EDTAssociated Problem(s): Incontinence overflow, urine Symptoms tolerable with medication and continue. * Fidel Abbott MD - 07/31/2024 11:18 AM EDTAssociated Problem(s): Chronic superficial gastritis Symptoms controlled with medication and continue. * Fidel Abbott MD - 07/31/2024 11:18 AM EDTAssociated Problem(s): Benign hypertension ([facility]) BP controlled and monitor PRN. * Fidel [...] panel PSA TSH documented in this encounterSaint Mary's Hospital of Blue [id number] Miscellaneous Notes* Telephone Encounter - Fatemeh Cain - 04/17/2024 1:56 PM EST Pt called to reschedule new pt appt due to lack of transportation. I informed him that we have no availability in [place] until [facility] July schedule opens up. He stated he will call back the first weekof April to reschedule. documented in this encounterMet[facility]01-[facility]-2025 Telephone encounter Note* Telephone Encounter - Fatemeh Cain - 04/17/2024 1:56 PM EST Pt called to reschedule new pt appt due to lack of transportation. I informed him that we have no availability in [place] until [facility] July schedule opens up. He stated he will call back the first weekof April to reschedule. [facility] [employer] [id number] Miscellaneous Notes* Telephone Encounter - Mary Conner CMA - 04/14/2024 3:23 PM EST Left message for patient to call the office back to confirm upcoming appointment 04/20 at 1:[address] Valdivia in [place]. Also stated that patient needs to get labs done prior to upcoming appointment documented in this encounterMetroHealth [facility]01-17-2025 Telephone encounter Note* Telephone Encounter - Mary Conner CMA - 04/14/2024 3:23 PM EST Left message for patient to call the office back to confirm upcoming appointment 04/20 at 1:[address] Valdivia in [place]. Also stated that patient needs to get labs done prior to upcoming appointment [facility]01-09-2025 Miscellaneous Notes* Telephone Encounter - Mary Conner CMA - 04/06/2024 2:38 PM EST Left message for patient to call the office back to confirm upcoming appointment 04/13 at 2:[address] Valdivia in [place]. Also stated that patient needs to get labs done prior to upcoming appointment documented in this encounterMet[facility]01-09-2025 Telephone encounter Note* Telephone Encounter - Mary Conner CMA - 04/06/2024 2:38 PM EST Left message for patient to call the office back to confirm upcoming appointment 04/13 at 2:[address] Valdivia in [place]. Also stated that patient needs to get labs done prior to upcoming appointment [facility]12-17-2024 Progress note Author Cathy Brar [facility] HospitalNote Date/TimeDecemb2023 11:23am [place] [address] Wound Center Provider Note Signed Patient: Ganga Stinson MR#: [id number] : 1960 Acct:[id number] Age/Sex: 63 / M Copies to: MD [...] start?: 10 plus years Mode of Arrival/ Transmission Builder: Personal vehicle and Family Assistive Device Used [...] Itching Wound/Ulcer Sacrum: Bed Appearance: Beefy Red, Nason, Rolled Edges and Yellow Percent of Wound [...] Ischium: Bed Appearance: Beefy Red, Bone Palpable, Nason and Yellow Percent of Wound Bed Granulated/Red: [...] Ischium: Bed Appearance: Beefy Red, Bone Palpable, Nason, Rolled Edges and Yellow Percent of Wound Bed Granulated/Red: 90 Percent of Devitalized: 10 Length (cm): 0.5 Width (cm): 0.5 Depth (cm): 2.5 CM Sq: 0.250 Tunneling Position: 10:00 Tunneling Depth: 4 Surrounding Tissue Appearance: Nason and Macerated Surrounding Tissue Temp: Warm Drainage [...] signed by MD Cathy Brar> 03/14/24 1123 [facility] Work Phone: 1(939) 579-484412-17-2024 Evaluation note* Diagnosis Onset Date Resolution Status Admit Date Diabetes mellitus due to underlying cond ition with diabetic neuropathy, wit acutece 2023 10:42amPressure injury of left ischium, stage 4acute March 14, 2024 10:42amPressure injury of right ischium, stage 4acute March 14, 2024 10:42amStage IV pressure ulcer of sacral regionacuteDecephoenix [facility] 2023 10:42amCauda equina spinal cord injurychronicOss Health 2023 10:42am [facility] Work Phone: 1(827) 166-650612-17-2024 [place] [address] Wound Center Provider Note Signed Patient: Ganga Stinson MR#: [id number] : 1960 Acct:[id number] Age/Sex: 63 / M Copies to: MD [...] start?: 10 plus years Mode of Arrival/ Transmission Builder: Personal vehicle and Family Assistive Device Used [...] Itching Wound/Ulcer Sacrum: Bed Appearance: Beefy Red, Nason, Rolled Edges and Yellow Percent of Wound [...] Ischium: Bed Appearance: Beefy Red, Bone Palpable, Nason and Yellow Percent of Wound Bed Granulated/Red: [...] Ischium: Bed Appearance: Beefy Red, Bone Palpable, Nason, Rolled Edges and Yellow Percent of Wound Bed Granulated/Red: 90 Percent of Devitalized: 10 Length (cm): 0.5 Width (cm): 0.5 Depth (cm): 2.5 CM Sq: 0.250 Tunneling Position: 10:00 Tunneling Depth: 4 Surrounding Tissue Appearance: Nason and Macerated Surrounding Tissue Temp: Warm Drainage [...] Cathy Brar MD DD/ 1121 Signed By: 03/14/24 1123 [facility]11-12-2024 Progress note Author Cathy Brar [facility] HospitalNote Date/TimeNovember 2023 11:44am [place] [address] Wound Center Provider Note Signed Patient: Ganga Stinson MR#: [id number] : 1960 Acct:[id number] Age/Sex: 63 / M Copies to: MD [...] start?: 10 plus years Mode of Arrival/ Transmission Builder: Personal vehicle and Family Assistive Device Used [...] Itching Wound/Ulcer Sacrum: Bed Appearance: Beefy Red, Nason, Rolled Edges and Yellow Percent of Wound [...] Jelly Right Ischium: Bed Appearance: Beefy Red, Nason and Yellow Percent of Wound Bed Granulated/Red: 90 Percent of Devitalized: 10 Length (cm): 6.6 Width (cm): 7.4 Depth (cm): 4.0 CM Sq: 48.840 Undermining Position: 8-11 Undermining Depth: 3.5 Tunneling Position: 00:00 Tunneling Depth: 0 Surrounding Tissue Appearance: Rolled Edges and Rash/Irritation Surrounding Tissue Temp: Warm Drainage Amount: Large Drainage Description: Serosanguineous Drainage Odor: No Odor Left Ischium: Bed Appearance: Beefy Red, Nason, Rolled Edges and Yellow Percent of Wound [...] signed by MD Cathy Brar> 02/08/24 1144 [facility] Work Phone: 1(221) 903-755611-12-2024 Evaluation note* Diagnosis Onset Date Resolution Status Admit Date Diabetes mellitus due to underlying cond ition with diabetic neuropathy, wit acuteFebruary 08, 2024 10:48amPressure injury of left ischium, stage 4acute February 08, 2024 10:48amPressure injury of right ischium, stage 4acute February 08, 2024 10:48amStage IV pressure ulcer of sacral regionacuteFebruary 08, 2024 10:48amCauda equina spinal cord injurychronicFebruary 08, 2024 10:48am [facility] Work Phone: 1(183) 520-956311-12-2024 [place] [address] Wound Center Provider Note Signed Patient: Ganga Stinson MR#: [id number] : 1960 Acct:[id number] Age/Sex: 63 / M Copies to: MD [...] start?: 10 plus years Mode of Arrival/ Transmission Builder: Personal vehicle and Family Assistive Device Used [...] Itching Wound/Ulcer Sacrum: Bed Appearance: Beefy Red, Nason, Rolled Edges and Yellow Percent of Wound [...] Jelly Right Ischium: Bed Appearance: Beefy Red, Nason and Yellow Percent of Wound Bed Granulated/Red: 90 Percent of Devitalized: 10 Length (cm): 6.6 Width (cm): 7.4 Depth (cm): 4.0 CM Sq: 48.840 Undermining Position: 8-11 Undermining Depth: 3.5 Tunneling Position: 00:00 Tunneling Depth: 0 Surrounding Tissue Appearance: Rolled Edges and Rash/Irritation Surrounding Tissue Temp: Warm Drainage Amount: Large Drainage Description: Serosanguineous Drainage Odor: No Odor Left Ischium: Bed Appearance: Beefy Red, Nason, Rolled Edges and Yellow Percent of Wound [...] 1141 Signed By: 02/08/24 1144 [facility]10-24-2024 History of Present illness Narrative * [...] use hydroxyzine PRN. documented in this encounterSaint Mary's Hospital of Blue [id number] Evaluation note* Diagnosis Stage 3a chronic kidney disease ([facility])- Primary documented in this encounter [facility] [employer] [id number] Miscellaneous Notes* Telephone Encounter - Fatemeh Cain - 01/12/2024 9:03 AM EDT LM to schedule new pt appt. documented in this encounterVermont State HospitalWearable Intelligence [id number] Telephone encounter Note* Telephone Encounter - Fatemeh Cain - 01/12/2024 9:03 AM EDT LM to schedule new pt appt. [facility] [employer] [id number] Progress note Author Cathy Brar [facility] HospitalNote Date/TimeOctober 2023 11:52am [place] [address] Wound Center Provider Note Signed Patient: Ganga Stinson MR#: [id number] : 1960 Acct:[id number] Age/Sex: 63 / M Copies to: MD [...] start?: 10 plus years Mode of Arrival/ Transmission Builder: Personal vehicle and Family Assistive Device Used [...] Itching Wound/Ulcer Sacrum: Bed Appearance: Beefy Red, Nason and Yellow Percent of Wound Bed Granulated/Red: 90 Percent of Devitalized: 10 Length (cm): 2.9 Width (cm): 1.5 Depth (cm): 3 CM Sq: 4.350 Undermining Position: 360 Undermining Depth: 3.5 Surrounding Tissue Appearance: Bright Red and Rash/Irritation Surrounding Tissue Temp: Warm Drainage Amount: Large Drainage Description: Serosanguineous Drainage Odor: No Odor Right Ischium: Bed Appearance: Beefy Red, Nason and Yellow Percent of Wound Bed Granulated/Red: 90 Percent of Devitalized: 10 Length (cm): 7 Width (cm): 7.5 Depth (cm): 4.0 CM Sq: 52.500 Undermining Position: 8-11 Undermining Depth: 4.0 Tunneling Position: 00:00 Tunneling Depth: 0 Surrounding Tissue Appearance: Rolled Edges and Rash/Irritation Surrounding Tissue Temp: Warm Drainage Amount: Large Drainage Description: Serosanguineous Drainage Odor: No Odor Left Ischium: Bed Appearance: Beefy Red, Nason, Rolled Edges and Yellow Percent of Wound Bed Granulated/Red: 90 Percent of Devitalized: 10 Length (cm): 0.7 Width (cm): 0.8 Depth (cm): 2.9 CM Sq: 0.560 Tunneling Position: 10:00 Tunneling Depth: 3 Surrounding Tissue Appearance: Nason Surrounding Tissue Temp: Warm Drainage Amount: Large [...] signed by MD Cathy Brar> 01/04/24 1052 [facility] Work Phone: 1(576) 431-355110-08-2024 [place] [address] Wound Center Provider Note Signed Patient: Ganga Stinson MR#: [id number] : 1960 Acct:[id number] Age/Sex: 63 / M Copies to: MD [...] start?: 10 plus years Mode of Arrival/ Transmission Builder: Personal vehicle and Family Assistive Device Used [...] Itching Wound/Ulcer Sacrum: Bed Appearance: Beefy Red, Nason and Yellow Percent of Wound Bed Granulated/Red: 90 Percent of Devitalized: 10 Length (cm): 2.9 Width (cm): 1.5 Depth (cm): 3 CM Sq: 4.350 Undermining Position: 360 Undermining Depth: 3.5 Surrounding Tissue Appearance: Bright Red and Rash/Irritation Surrounding Tissue Temp: Warm Drainage Amount: Large Drainage Description: Serosanguineous Drainage Odor: No Odor Right Ischium: Bed Appearance: Beefy Red, Nason and Yellow Percent of Wound Bed Granulated/Red: 90 Percent of Devitalized: 10 Length (cm): 7 Width (cm): 7.5 Depth (cm): 4.0 CM Sq: 52.500 Undermining Position: 8-11 Undermining Depth: 4.0 Tunneling Position: 00:00 Tunneling Depth: 0 Surrounding Tissue Appearance: Rolled Edges and Rash/Irritation Surrounding Tissue Temp: Warm Drainage Amount: Large Drainage Description: Serosanguineous Drainage Odor: No Odor Left Ischium: Bed Appearance: Beefy Red, Nason, Rolled Edges and Yellow Percent of Wound Bed Granulated/Red: 90 Percent of Devitalized: 10 Length (cm): 0.7 Width (cm): 0.8 Depth (cm): 2.9 CM Sq: 0.560 Tunneling Position: 10:00 Tunneling Depth: 3 Surrounding Tissue Appearance: Nason Surrounding Tissue Temp: Warm Drainage Amount: Large [...] 1050 Signed By: 01/04/24 1052 [facility]08-[facility]-20[facility] History of Present illness Narrative * [...] CBC and differential documented in this encounterSaint Mary's Hospital of Blue [id number] [place] note Author Cathy Brar [facility] HospitalNote Date/TimeAugust 2023 1:07pm[place] [address] Wound Center Provider Note Signed Patient: Ganga Stinson MR#: [id number] : 1960 Acct:[id number] Age/Sex: 63 / M Copies to: MD [...] his foot ulcers and he currently does [facility] foot ulcers. Currently, [...] start?: 10 plus years Mode of Arrival/ Transmission Builder: Personal vehicle and Family Assistive Device Used [...] Sacrum: Bed Appearance: Beefy Red, Bone Palpable, Nason and Yellow Percent of Wound Bed Granulated/Red: 90 Percent of Devitalized: 10 Length (cm): 2.5 Width (cm): 2 Depth (cm): 3 CM Sq: 5.000 Undermining Position: 360 Undermining Depth: 4 Surrounding Tissue Appearance: Bright Red and Rash/Irritation Surrounding Tissue Temp: Warm Drainage Amount: Large Drainage Description: Serosanguineous Drainage Odor: No Odor Right Ischium: Bed Appearance: Beefy Red, Nason and Yellow Percent of Wound Bed Granulated/Red: [...] Odor Left Ischium: Bed Appearance: Beefy Red, Nason, Rolled Edges and Yellow Percent of Wound Bed Granulated/Red: 90 Percent of Devitalized: 10 Length (cm): 0.7 Width (cm): 0.8 Depth (cm): 2.3 CM Sq: 0.560 Tunneling Position: 10:00 Tunneling Depth: 3 Surrounding Tissue Appearance: Nason Surrounding Tissue Temp: Warm Drainage Amount: Large [...] By: <Electronically signed by MD Cathy Brar> 11/09/231206 [facility] Work Phone: 1(667) 650-460208-13-2024 [place] [address] Wound Center Provider Note Signed Patient: Ganga Stinson MR#: [id number] : 1960 Acct:[id number] Age/Sex: 63 / M Copies to: MD [...] start?: 10 plus years Mode of Arrival/ Transmission Builder: Personal vehicle and Family Assistive Device Used [...] Sacrum: Bed Appearance: Beefy Red, Bone Palpable, Nason and Yellow Percent of Wound Bed Granulated/Red: 90 Percent of Devitalized: 10 Length (cm): 2.5 Width (cm): 2 Depth (cm): 3 CM Sq: 5.000 Undermining Position: 360 Undermining Depth: 4 Surrounding Tissue Appearance: Bright Red and Rash/Irritation Surrounding Tissue Temp: Warm Drainage Amount: Large Drainage Description: Serosanguineous Drainage Odor: No Odor Right Ischium: Bed Appearance: Beefy Red, Nason and Yellow Percent of Wound Bed Granulated/Red: [...] Odor Left Ischium: Bed Appearance: Beefy Red, Nason, Rolled Edges and Yellow Percent of Wound Bed Granulated/Red: 90 Percent of Devitalized: 10 Length (cm): 0.7 Width (cm): 0.8 Depth (cm): 2.3 CM Sq: 0.560 Tunneling Position: 10:00 Tunneling Depth: 3 Surrounding Tissue Appearance: Nason Surrounding Tissue Temp: Warm Drainage Amount: Large [...] MD DD/ 01 Signed By: 11/09/23 1207 [facility]07-09-2024 [place] note Author Cathy Brar [facility] HospitalNote Date/TimeJuly 2023 12:20pm[place] [address] Wound Center Provider Note Signed Patient: Ganga Stinson MR#: [id number] : 1960 Acct:[id number] Age/Sex: 63 / M Copies to: MD [...] is Dr. Abbott. Patient also sees a eyewear consultant. Apparently he was to start on a new medication and will need to be on blood thinners because of the medication. Subjective Pain Buttock: Pain Intensity: 6 Wound/Ulcer History When did wound start?: 10 plus years Mode of Arrival/ Transmission Builder: Personal vehicle and Family Assistive Device Used [...] Itching Wound/Ulcer Sacrum: Bed Appearance: Beefy Red, Nason and Yellow Percent of Wound Bed Granulated/Red: 90 Percent of Devitalized: 10 Length (cm): 2.6 Width (cm): 1.5 Depth (cm): 2.9 CM Sq: 3.900 Undermining Position: 360 (deepest at 9) Undermining Depth: 4.5 Surrounding Tissue Appearance: Hyperpigmented Surrounding Tissue Temp: Warm Drainage Amount: Large Drainage Description: Serosanguineous Drainage Odor: No Odor Right Ischium: Bed Appearance: Beefy Red, Bone Palpable, Nason and Yellow Percent of Wound Bed Granulated/Red: 90 Percent of Devitalized: 10 Length (cm): 5 Width (cm): 7 Depth (cm): 3.5 CM Sq: 35.000 Undermining Position: 8-11 (deepest at 9) Undermining Depth: 3.7 Surrounding Tissue Appearance: Hyperpigmented Surrounding Tissue Temp: Warm Drainage Amount: Large Drainage Description: Serosanguineous Left Ischium: Bed Appearance: Beefy Red, Nason and Yellow Percent of Wound Bed Granulated/Red: [...] to start on new medications prescribed by eyewear consultant. Patient and were told to monitor for evidence of bleeding from the wounds. Follow-up in about 1 month. See Instructions for Orders See Instructions for Orders See Wound Discharge Instructions for Orders: Dictated By: Cathy Brar MD DD/ 1115 Signed By: <Electronically signed by MD Cathy Brar> 10/05/23 [facility]0 [facility] Work Phone: 1(688) 375-788007-09-2024 [place] [address] Wound Center Provider Note Signed Patient: Ganga Stinsno MR#: [id number] : 1960 Acct:[id number] Age/Sex: 63 / M Copies to: MD [...] is Dr. Abbott. Patient also sees a eyewear consultant. Apparently he was to start on a new medication and will need to be on blood thinners because of the medication. Subjective Pain Buttock: Pain Intensity: 6 Wound/Ulcer History When did wound start?: 10 plus years Mode of Arrival/ Transmission Builder: Personal vehicle and Family Assistive Device Used [...] Itching Wound/Ulcer Sacrum: Bed Appearance: Beefy Red, Nason and Yellow Percent of Wound Bed Granulated/Red: 90 Percent of Devitalized: 10 Length (cm): 2.6 Width (cm): 1.5 Depth (cm): 2.9 CM Sq: 3.900 Undermining Position: 360 (deepest at 9) Undermining Depth: 4.5 Surrounding Tissue Appearance: Hyperpigmented Surrounding Tissue Temp: Warm Drainage Amount: Large Drainage Description: Serosanguineous Drainage Odor: No Odor Right Ischium: Bed Appearance: Beefy Red, Bone Palpable, Nason and Yellow Percent of Wound Bed Granulated/Red: 90 Percent of Devitalized: 10 Length (cm): 5 Width (cm): 7 Depth (cm): 3.5 CM Sq: 35.000 Undermining Position: 8-11 (deepest at 9) Undermining Depth: 3.7 Surrounding Tissue Appearance: Hyperpigmented Surrounding Tissue Temp: Warm Drainage Amount: Large Drainage Description: Serosanguineous Left Ischium: Bed Appearance: Beefy Red, Nason and Yellow Percent of Wound Bed Granulated/Red: [...] to start on new medications prescribed by eyewear consultant. Patient and were told to monitor for evidence of bleeding from the wounds. Follow-up in about 1 month. See Instructions for Orders See Instructions for Orders See Wound Discharge Instructions for Orders: Dictated By: Cathy Brar MD DD/ 1115 Signed By: 10/05/23 1120 [facility]02-15-2024 Telephone encounter Note* Telephone Encounter - Sandhya Velasquez RN - 05/13/2023 3:00 PM EST Patient called to inquire about the antibiotic that was supposed to be sent after his 05/06 visit. Can you resend? Thank you! [facility] [id number] Miscellaneous Notes* Telephone Encounter - Sandhya Velasquez RN - 05/13/2023 3:00 PM EST Patient called to inquire about the antibiotic that was supposed to be sent after his 05/06 visit. Can you resend? Thank you! documented in this encounterSaint Mary's Hospital of Blue [id number] History of Present illness Narrative* Jonathan Moffett [...] unable to go to wound care at [facility] Patient also has Integra wound graft [...] or home health. Patient currently going at [facility] for decubitus ulcer Patient still awaits MRI approval as had to be resubmitted due to need for new x-ray on previous visit in awaits MRI at [facility] . Referral has been sent to [facility] wound center with attempt to follow-up for [...] region for possible osteomyelitis to fibula at [facility] ASSESSMENT 12 weeks s/p left 4th and 5th ray amputation with incision and drainage and partial closure with single lobe flap Type 2 diabetic with paraplegia 1. Ulcer of left ankle, with necrosis of bone (HCC) (CMS/HCC) 2. Diabetes mellitus due to underlying condition with diabetic polyneuropathy, unspecified whether remote computer terminal operator insulin use (CMS/HCC) 3. Acute complete [...] antibiotics Patient to follow up with [facility] for decubitus ulcer and instructions given to contact [facility] for follow-up.. Skin flap area of ulceration [...] MRI Jonathan Moffett DPM documented in this encounterSaint Mary's Hospital of Blue [id number] [place] note Author Cathy Brar [facility] May 04, 2023 1:07pmNote Date/TimeFebruary 2023 12:48pm[place] [address] Wound Center Provider Note Signed Patient: Ganga Stinson MR#: [id number] : 1960 Acct:[id number] Age/Sex: 62 / M Copies to: MD [...] Patient denies other new medical problems. Last [id number] was 7.2 he states. Patient denies any new medical problems. His sacral and right ischial ulcer show pink and red granulation tissue. There is no exposed bone or purulent drainage. The left ischial ulcer is very small. Subjective Pain Bilateral Buttock: Pain Intensity: 0 Right Foot: Pain Intensity: 0 Wound/Ulcer History When did wound start?: years Mode of Arrival/ Transmission Builder: Personal vehicle Assistive Device Used Today: Wheelchair [...] Itching Wound/Ulcer Right Lateral Ankle: Bed Appearance: Nason and Yellow Percent of Wound Bed Granulated/Red: [...] No Odor Right Medial Foot: Bed Appearance: Nason and Yellow Percent of Wound Bed Granulated/Red: 50 Percent of Devitalized: 50 Length (cm): 1.0 Width (cm): 1.0 Depth (cm): 0.3 CM Sq: 1.000 Surrounding Tissue Appearance: Hyperpigmented Surrounding Tissue Temp: Warm Drainage Amount: Moderate Drainage Description: Serosanguineous Drainage Odor: No Odor Sacrum: Bed Appearance: Beefy Red, Nason and Yellow Percent of Wound Bed Granulated/Red: 90 Percent of Devitalized: 10 Length (cm): 2.9 Width (cm): 1.5 Depth (cm): 2.5 CM Sq: 4.350 Undermining Position: 360 deepest at 9:00 Undermining Depth: 4.0 Surrounding Tissue Appearance: Hyperpigmented, Macerated and Callous Surrounding Tissue Temp: Warm Drainage Amount: Large Drainage Description: Serosanguineous Drainage Odor: No Odor Right Ischium: Bed Appearance: Beefy Red, Nason and Yellow Percent of Wound Bed Granulated/Red: 90 Percent of Devitalized: 10 Length (cm): 5.3 Width (cm): 7.5 Depth (cm): 4.0 CM Sq: 39.750 Surrounding Tissue Appearance: Nason, Macerated and Callous Surrounding Tissue Temp: Warm Drainage Amount: Large Drainage Description: Serosanguineous Drainage Odor: No Odor Left Ischium: Bed Appearance: Beefy Red and Nason Percent of Wound Bed Granulated/Red: 100 Percent [...] 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 Document Revised: 12/04/2020 Document Reviewed: 12/04/2020 [employer] Patient Education 2022 [employer]. Follow Up Care 10/13/2022 11:18:02 With:ALLEN NAZARIO, Jovanny Christie, URL Address: [facility] [address] , [place] [address]- [phone] When: Unknown Comments:sched cysto [facility] 03-31-2023 History of Present illness Narrative* [...] 06/26/2022 12:01 PM EDT Physical Therapy Facility/Department: [facility] Daily Treatment Note [...] 06/26/2022 12:00 PM EDT Occupational Therapy Facility/Department: [facility] Daily Treatment Note [...] within reach will continue to monitor. * Fabyb Felder RN - 06/26/2022 9:35 AM EDT [facility] with RN. [...] Crockett RN - 06/26/2022 3:00 AM EDT Associate Professor Of Psychology at bedside for wound dressing change- pt incontinent of bowels. See flow sheet for details. * Panchito Crockett RN - 06/26/2022 1:30 AM EDT Pt incontinent of stool. Associate Professor Of Psychology at bedside for wound change dressing per order- see flow sheet for details. * Panchito Crockett RN - 06/26/2022 12:50 AM EDT Patient at bedside for reassessment and vitals- see flow sheet for details. Pt remains alert and oriented c4-calm and cooperative. GoLYTELY at bedside and marketing underwriter encourages patient to consume fluid- pt validates understanding. Patient currently denying pain and discomfort. Denying any additional needs, call light placed within reach, bed in lowest position. Associate Professor Of Psychology encourages patient to call out for assistance. Will continue to monitor. * Panchito Crockett RN - 06/26/2022 12:45 AM EDT Associate Professor Of Psychology at bedside- pt incontinent of stool- wound dressing changed per order. See flow sheet. * Panchito Crockett RN - 06/25/2022 10:05 PM EDT Associate Professor Of Psychology at bedside to for wound dressing change per order. See MAR for details. * Eloise Lopez PTA - 06/25/2022 3:56 PM EDT Physical Therapy Facility/Department: [facility] Daily Treatment Note [...] bed. Supine BLE PROM exercises in all [id number] ea. Seated EOB AROM in LAQ 2x [...] never been a smoker. He saw a knife operator at [facility] 2 years ago in 2020. At [...] himself. He follows with wound clinic at [facility]. Mr. Stinson also denied any current or recent chest pain, abdominal pain, bleeding problems, problems with his medications or any other concerns at this time. Past Medical History: Diagnosis Date Abnormal EKG 06/23/2022 Acute kidney injury superimposed on CKD (HCC) 06/23/2022 Cauda equina syndrome ([facility]) 2003 Depression Hypertension MRSA (methicillin [...] BEADS performed by Gabriel Haile DPM at [facility] OR AL I&D BELOW FASCIA FOOT 1 BURSAL SPACE Right 04/10/2017 RIGHT ANKLE AND RIGHT HEEL DEBRIDEMENT INCISION AND DRAINAGE WITH CULTURES SENT performed by William Jimenez MD at [facility] OR AL OFFICE/OUTPT VISIT,PROCEDURE ONLY Right 06/14/2017 FOOT DEBRIDEMENT INCISION AND DRAINAGE-ANKLE INCLUDING BONE BIOPSY performed by Justin Husseint [facility] OR TOE AMPUTATION Right 12/25/2016 right fifth toe amputation with I&D, ATB beads per Dr. Haile VENA CAVA FILTER PLACEMENT [place] filter Social History: Social History Tobacco Use [...] Active Cardiac Condition No (decompensated HF, Arrhythmia, RI <3 weeks, severe valve disease) Risk Level [...] with the plan. Sincerely, Zoila Villafuerte PA-C [facility] [employer] [address] [place], [place] [id number] , I believe that the risk of [...] BEADS performed by Gabriel Haile DPM at [facility] OR AL I&D BELOW FASCIA FOOT 1 BURSAL SPACE Right 04/10/2017 RIGHT ANKLE AND RIGHT HEEL DEBRIDEMENT INCISION AND DRAINAGE WITH CULTURES SENT performed by William Jimenez MD at [facility] OR AL OFFICE/OUTPT VISIT,PROCEDURE ONLY Right 06/14/2017 FOOT DEBRIDEMENT INCISION AND DRAINAGE-ANKLE INCLUDING BONE BIOPSY performed by Justin Husseint [facility] OR TOE AMPUTATION Right 12/25/2016 right fifth toe amputation with I&D, ATB beads per Dr. Haile [employer]NA [employer] FILTER PLAC[employer] [place] filter Allergies Allergen Reactions Vancomycin States had [...] Matias Garcia MD, 5,000 Units at 06/23/22 2767 PE: VSS, Afebrile, NAD, A&O x 3, Aloof Labs: as above RLE ; lateral ankle ; FT+ ulcerative wound , +PTB IMP: stage 4 ankle decubitus, appaarent bone involvement Stable for minor bedside procedure Tx: see procedure notes P: see orders / AVS Yakov Min DPM 06/25/2022 12:28 PM * LAURENT Gomez - 06/25/2022 11:55 AM EDT Occupational Therapy Facility/Department: [facility] Daily Treatment Note [...] MD 8:05 AM 06/25/2022 * Shelly Mondragon, TYPEWRITER ALIGNER - PASTE UP ARTIST APPRENTICE - 06/25/2022 7:34 AM EDT Images from [...] labs-Hgb 7.6 today Nutrition status: morbid obesity Strategic Partnership Representative consult initiated Hospital Prophylaxis: DVT: Heparin Stress [...] the patient's medical record. [DOES NOT SATISFY [facility] PERFORMANCE] Shelly Mondragon APRN - DOLLY , MARIFER MCCABE-C Hospitalist Medicine 06/25/2022, 7:34 AM Shelly Mondragon APRN-DOLLY Associated attestation - Matias Garcia MD - 06/25/2022 7:34 PM EDT Images from the original note were not included. [address], [address] Attestation Patient: Ganga Evans Alloway Date of Admission: 06/22/2022 4:21 PM Hospital Day # 3 Date of Evaluation: 06/25/2022 I personally evaluated and examined the patient [id number] in conjunction with the PA/MARKET INVESTIGATOR and agree with the management and dispostition of the patient. Please see the PA/MARKET INVESTIGATOR's note for full details.My kohli findings are: [...] with the plan as outlined in the MARKET INVESTIGATOR/PA's note Disposition: Discharge plan is pending Please note that this chart was generated using voice recognition Onyu dictation software. Although every effort was made to ensure the accuracy of this automated bridge engineer, some errors in bridge engineer may have occurred. Matias Garcia MD 06/25/2022 [...] Samayoa RN - 06/25/2022 12:52 AM EDT Associate Professor Of Psychology at bedside at this time to perform [...] Samayoa RN - 06/24/2022 6:43 PM EDT Associate Professor Of Psychology at bedside at this time to perform [...] 06/24/2022 4:57 PM EDT Physical Therapy Facility/Department: [facility] Daily Treatment Note [...] Time Out 1643 Minutes 19 Martita Tam DIRECTOR SPEECH LANGUAGE * Heri Valdez RN - 06/24/2022 4:00 [...] never been a smoker. He saw a knife operator at [facility] 2 years ago in 2020. At [...] himself. He follows with wound clinic at [facility]. Mr. Stinson also denied any current or [...] BEADS performed by Gabriel Haile DPM at [facility] OR AL I&D BELOW FASCIA FOOT 1 BURSAL SPACE Right 04/10/2017 RIGHT ANKLE AND RIGHT HEEL DEBRIDEMENT INCISION AND DRAINAGE WITH CULTURES SENT performed by William Jimenez MD at [facility] OR AL OFFICE/OUTPT VISIT,PROCEDURE ONLY Right 06/14/2017 FOOT DEBRIDEMENT INCISION AND DRAINAGE-ANKLE INCLUDING BONE BIOPSY performed by Enrique Hussein [facility] OR TOE AMPUTATION Right 12/25/2016 right fifth toe amputation with I&D, ATB beads per Dr. Haile [employer]NA C[employer] FILTER PLACEMENT [place] filter Social History: Social History Tobacco Use [...] with the plan. Sincerely, Zoila Villafuerte PA-C [facility] [employer] [address] [place], [place] [id number] , I believe that the risk of [...] 06/24/2022 10:32 AM EDT Occupational Therapy Facility/Department: [facility] Daily Treatment Note NAME: Ganga Stnison : 1960 Date of Service: 06/24/2022 Discharge [...] Bed Mobility Training: (positioned on side for [employer] to complete ultrasound at end of session) [...] prep on 06/25/2022 6pm KATERINA ATKINS MD [facility] Gastroenterology * Shelly Mondragon, TYPEWRITER ALIGNER - PASTE UP ARTIST APPRENTICE - 06/24/2022 7:34 AM EDT Images from [...] IRon Monitor labs Nutrition status: morbid obesity Strategic Partnership Representative consult initiated Hospital Prophylaxis: DVT: Heparin Stress Ulcer: na Disposition: Shared decision making: All test results, treatment options and disposition options were discussed with the patient today Social determinants of health that may impact management: none Code status: Full Code Disposition: Discharge plan is home [facility] Advanced Care Planning documentation: [x] I [...] the patient's medical record. [DOES NOT SATISFY [facility] PERFORMANCE] Shelly Mondragon, TYPEWRITER ALIGNER - PASTE UP ARTIST APPRENTICE , TYPEWRITER ALIGNER, MARKET INVESTIGATOR-C Hospitalist Medicine 06/24/2022, 7:34 AM Blood Transfusion [...] from the original note were not included. [address], [address] Attestation Patient: Ganga Stinson Date of Admission: 06/22/2022 4:21 PM Hospital Day # 2 Date of Evaluation: 06/24/2022 I personally evaluated and examined the patient [id number] in conjunction with the PA/MARKET INVESTIGATOR and agree with the management and dispostition of the patient. Please see the PA/MARKET INVESTIGATOR's note for full details.My kohli findings are: [...] with the plan as outlined in the MARKET INVESTIGATOR/PA's note Disposition: Discharge plan is pending, GI, Cardiology, Urology consultations, Transfuse if pRBC <7, wound care to the affected area and monitor electrolytes. Please note that this chart was generated using voice recognition [employer] dictation software. Although every effort was made to ensure the accuracy of this automated bridge engineer, some errors in bridge engineer may have occurred. Matias Garcia MD 06/24/2022 9:39 PM * Geneva Samayoa RN - 06/24/2022 2:46 AM EDT Spoke with Dr. Garcia and informed him of critical lab levels. No new orders. * Geneva Samayoa RN - 06/24/2022 2:15 AM EDT Associate Professor Of Psychology at bedside at this time to perform [...] this time and patient transferred over to [facility]. * Geneva Samayoa RN - 06/23/2022 9:00 PM EDT Associate Professor Of Psychology at bedside at this time to perform [...] 06/23/2022 4:35 PM EDT Physical Therapy Facility/Department: [facility] Daily Treatment Note [...] Minutes 38 Eloise Lopez PTA * Fidelia Kowalskisilvina, LAURENT - 06/23/2022 4:31 PM EDT Occupational Therapy Facility/Department: [facility] Daily Treatment Note [...] 06/23/2022 2:08 PM EDT Physical Therapy Facility/Department: [facility] Physical Therapy Initial [...] Ambulation Assistance: Non-ambulatory Transfer Assistance: Independent Active Lens Generator: No Additional Comments: Pt. with hx of [...] 06/23/2022 11:26 AM EDT Occupational Therapy Facility/Department: [facility] Occupational Therapy Initial [...] Ambulation Assistance: Non-ambulatory Transfer Assistance: Independent Active Lens Generator: No Additional Comments: Pt. with hx of [...] to Severe Extremities (+ 2 pitting BLE) Dentist Strength: Not Performed Nutrition Assessment: Altered nutrition [...] Anthropometric Measures: Height: 5' 11 (180.3 cm) [place] Body Weight (IBW): 172 lbs (78 kg) [...] Used for Energy Requirements: Current Energy (kcal/day): 4373-2853 (20-23/kg) Weight Used for Protein Requirements: [place] Protein (g/day): 109-133g (1.4-1.7g/kg) Method Used for [...] Nutrition Supplement [address]A [address], LD Contact: [id number] * Panchito Crockett RN - 06/23/2022 1:00 AM EDT Associate Professor Of Psychology at bedside for reassessment-see flow sheet for details. Patient remains alert and oriented x4-calm and cooperative. Patient continues to deny pain and discomfort. Incontinence and stewart care provided. Denying any additional needs, call light placed within reach, bed in lowest position and alarm engaged to promote patient safety. Will continue to monitor. * Panchito Crockett RN - 06/23/2022 12:00 AM EDT Associate Professor Of Psychology attempted to place rowe catheter at this time- unable to advance 16 FR catheter. Rn Remnants Cutter notified and will attempt- will continue to monitor. Patient reports no pain or discomfort. * Panchito Crockett RN - 06/22/2022 11:12 PM EDT Associate Professor Of Psychology phoned Dr. Garcia at this informing physician [...] Will continue to monitor. [facility] [employer] Work Phone: [phone]) 852-188203-31-2023 Hospital Discharge instructions* Discharge Instructions* Fabby Felder [...] at most local grocery stores, pharmacies, and [employer]. If you have any questions about your diet or nutrition, call the hospital and ask for the dietitian. Regular [facility] [employer] Phone: 1(838) [phone] Progress note Author Cathy Brar [facility] June 02, 2022 12:14pmNote Date/TimeMar2022 12:14pm[place] [address] Wound Center Provider Note Signed Patient: Ganga Stinson MR#: [id number] : 1960 Acct:[id number] Age/Sex: 61 / M Copies to: MD Fidel Whitmore MD~ HPI Date of Visit Date of Visit: Date of Service: 06/02/2022 Time of Service: 12:01 Narrative HPI: Patient is being followed for his chronic bilateral ischial, sacral and right foot ulcers. His wifeis doing his dressing changes. Patient has been having some right hip pain and underwent a CT scan in [place] on 03/14/2022. Thisshowed slight deepening of the ulceration along the [...] ischial tuberosity. Prominent and mildly enlarged lymph nodesalong the right external iliac chain and right groin presumably reactive. Patient also underwent x-rays of the hip and pelvis which showed degenerative changes with no acutefracture. Patient denies new medical problems. He is on Januvia now for his diabetes. Heis not sure what his last A1c was. All of his ulcers are clean with pink granulation tissue. Subjective Constitutional Constitutional: Denies fever(s) Integumentary/Breasts Skin/Breast: Reports wounds [facility] Medical History (Updated 06/02/22 @ 12:13 [...] mg PO QAM HTN 09/12/17 [History Confirmed 01/27/22] atenolol 100 mg tablet [...] Sacrum: Bed Appearance: Beefy Red, Bone Palpable, Nason and Yellow Percent of Wound Bed Granulated/Red: 90 Percent of Devitalized: 10 Length (cm): 3.5 Width (cm): 1.8 Depth (cm): 2 CM Sq: 6.300 Undermining Position: 360 Undermining Depth: 3 Surrounding Tissue Appearance: Nason Surrounding Tissue Temp: Warm Drainage Amount: Large Drainage Description: Serosanguineous Drainage Odor: No Odor Left Ischium: Bed Appearance: Beefy Red, Bone Palpable, Nason and Yellow Percent of Wound Bed Granulated/Red: 90 Percent of Devitalized: 10 Length (cm): 7 Width (cm): 6 Depth (cm): 5.5 CM Sq: 42.000 Surrounding Tissue Appearance: Nason Surrounding Tissue Temp: Warm Drainage Amount: Large Drainage Description: Serosanguineous Drainage Odor: No Odor Right Ischium: Bed Appearance: Beefy Red, Bone Palpable, Nason and Yellow Percent of Wound Bed Granulated/Red: 90 Percent of Devitalized: 10 Length (cm): 0.7 Width (cm): 1 Depth (cm): 4 CM Sq: 0.700 Surrounding Tissue Appearance: Nason Surrounding Tissue Temp: Warm Drainage Amount: Moderate Drainage Description: Serosanguineous Drainage Odor: No Odor Left Ankle: Bed Appearance: Brown, Nason and Yellow Percent of Wound Bed Granulated/Red: 5 Percent of Devitalized: 95 Length (cm): 3.5 Width (cm): 2.5 Depth (cm): 0.1 CM Sq: 8.750 Surrounding Tissue Appearance: Nason Surrounding Tissue Temp: Warm Drainage Amount: Moderate Drainage Description: Serosanguineous Drainage Odor: No Odor Medial Ankle: Bed Appearance: Brown, Nason and Yellow Percent of Wound Bed Granulated/Red: 50 Percent of Devitalized: 50 Length (cm): 3.5 Width (cm): 4 Depth (cm): 0.1 CM Sq: 14.000 Surrounding Tissue Appearance: Nason Surrounding Tissue Temp: Warm Drainage Amount: Moderate Drainage Description: Serosanguineous Drainage Odor: No Odor Medial Foot: Bed Appearance: Black Dry, Brown, Nason and Hardware Percent of Wound Bed Granulated/Red: 5 Percent of Devitalized: 95 Length (cm): 2 Width (cm): 1.2 Depth (cm): 0.1 CM Sq: 2.400 Surrounding Tissue Appearance: Nason Surrounding Tissue Temp: Warm Drainage Amount: Moderate [...] Diabetes mellitus type: type 2 Diabetes mellitus remote computer terminal operator insulin use:with skilled nursing use Diabetes mellitus complication status: with skin [...] by MD Cathy Brar> 06/02/22 1214 [facility] Work Phone: [phone]) 636-356012-06-2022 Progress note Author Cathy Brar [facility] March 03, 2022 12:06pmNote Date/TimeDece2021 12:06pm[place] [address] Wound Center Provider Note Signed Patient: Ganga Stinson MR#: [id number] : 1960 Acct:[id number] Age/Sex: 61 / M Copies to: MD [...] Ischium: Bed Appearance: Beefy Red, Bone Palpable, Nason and Yellow Percent of Wound Bed Granulated/Red: [...] Bed Appearance: Beefy Red, Bone Palpable, Devitalized, Nason, Yellow and Rolled Edges Percent of Wound Bed Granulated/Red: 50 Percent of Devitalized: 50 Length (cm): 0.7 Width (cm): 0.8 Depth (cm): 4.0 CM Sq: 0.560 Undermining Position: 0 Undermining Depth: 0 Surrounding Tissue Appearance: Macerated and Rolled Edges Surrounding Tissue Temp: Warm Drainage Amount: Moderate Drainage Description: Serosanguineous Drainage Odor: No Odor Lidocaine Applied Topically: 2% Jelly Right Buttock: Bed Appearance: Devitalized, Nason and Yellow Percent of Wound Bed Granulated/Red: 100 Percent of Devitalized: 0 Length (cm): 0 Width (cm): 0 Depth (cm): 0 CM Sq: 0.000 Surrounding Tissue Appearance: Hyperpigmented Surrounding Tissue Temp: Warm Drainage Amount: None Drainage Description: Serosanguineous Drainage Odor: No Odor Lidocaine Applied Topically: 2% Jelly Right Lower Medial Leg: Bed Appearance: Nason and Yellow Percent of Wound Bed Granulated/Red: [...] Diabetes mellitus type: type 2 Diabetes mellitus skilled nursing insulin use:with remote computer terminal operator use Diabetes mellitus complication [...] by MD Cathy Brar> 03/03/22 1206 [facility] Work Phone: 1([phone]) 924-139112-02-2022 NotePROCEDURE: XR HIP RT 2 3V W [...] Electronically authenticated by: KHADAR MEDINA Date: 2022-02-27 07:17[facility]11-01-2022 Progress note Author Cathy Brar [facility] January 27, 2022 12:11pmNote Date/TimeNov2021 12:11pm[place] [address] Wound Center Provider Note Signed Patient: Ganga Stinson MR#: [id number] : 1960 Acct:[id number] Age/Sex: 61 / M Copies to: MD [...] 360 Undermining Depth: 3.5 Surrounding Tissue Appearance: Nason and Rolled Edges Surrounding Tissue Temp: Warm Drainage Amount: Large Drainage Description: Serosanguineous Drainage Odor: No Odor Lidocaine Applied Topically: 2% Jelly Right Heel: Bed Appearance: Beefy Red, Nason and Yellow Percent of Wound Bed Granulated/Red: 50 Percent of Devitalized: 50 Length (cm): 1.0 Width (cm): 1.4 Depth (cm): 0.1 CM Sq: 1.400 Surrounding Tissue Appearance: Peeling and Dryness Surrounding Tissue Temp: Warm Drainage Amount: Small Drainage Description: Serosanguineous Drainage Odor: No Odor Lidocaine Applied Topically: 2% Jelly Right Ischium: Bed Appearance: Beefy Red, Bone Palpable, Nason and Yellow Percent of Wound Bed Granulated/Red: [...] Bed Appearance: Beefy Red, Bone Palpable, Devitalized, Nason, Yellow and Rolled Edges Percent of Wound Bed Granulated/Red: 50 Percent of Devitalized: 50 Length (cm): 1.5 Width (cm): 1.0 Depth (cm): 4.0 CM Sq: 1.500 Undermining Position: 10-3:00 Undermining Depth: 3.5 Surrounding Tissue Appearance: Macerated and Rolled Edges Surrounding Tissue Temp: Warm Drainage Amount: Moderate Drainage Description: Serosanguineous Drainage Odor: No Odor Lidocaine Applied Topically: 2% Jelly Right Buttock: Bed Appearance: Devitalized, Nason and Yellow Percent of Wound Bed Granulated/Red: 100 Percent of Devitalized: 0 Length (cm): 0 Width (cm): 0 Depth (cm): 0 CM Sq: 0.000 Surrounding Tissue Appearance: Nason Surrounding Tissue Temp: Warm Drainage Amount: None Drainage Description: Serosanguineous Drainage Odor: No Odor Lidocaine Applied Topically: 2% Jelly Right Lower Medial Leg: Bed Appearance: Nason and Yellow Percent of Wound Bed Granulated/Red: [...] Diabetes mellitus type: type 2 Diabetes mellitus skilled nursing insulin use:with remote computer terminal operator use Diabetes mellitus complication [...] Orders: Dictated By: Cathy Brar MD DD/ 03 Signed By: <Electronically signed by MD Cathy Brar> 01/27/22 1211 [facility] Work Phone: 1(804) 911-441109-27-2022 Progress note Author Cathy Brar [facility] December 23, 2021 12:32pmNote Date/TimeSeptember 2021 12:32pm[place] [address] Wound Center Provider Note Signed Patient: Ganga Stinson MR#: [id number] : 1960 Acct:[id number] Age/Sex: 61 / M Copies to: MD [...] Bed Appearance: Beefy Red, Bone Palpable, Devitalized, Nason and Yellow Percent of Wound Bed Granulated/Red: 95 Percent of Devitalized: 5 Length (cm): 3.2 Width (cm): 2 Depth (cm): 2.5 CM Sq: 6.400 Undermining Position: 10-4:00 Undermining Depth: 5 Surrounding Tissue Appearance: Nason and Macerated Surrounding Tissue Temp: Warm Drainage Amount: Large Drainage Description: Serosanguineous Drainage Odor: No Odor Lidocaine Applied Topically: 2% Jelly Right Heel: Bed Appearance: Beefy Red, Devitalized, Epithelial Tissue or Bridge, Nason and Yellow Percent of Wound Bed Granulated/Red: 90 Percent of Devitalized: 10 Length (cm): 3 Width (cm): 8 Depth (cm): 0.1 CM Sq: 24.000 Surrounding Tissue Appearance: Peeling and Dryness Surrounding Tissue Temp: Warm Drainage Amount: Large Drainage Description: Serosanguineous Drainage Odor: No Odor Lidocaine Applied Topically: 2% Jelly Right Ischium: Bed Appearance: Beefy Red, Bone Palpable, Devitalized, Epithelial Tissue or Bridge, Nason and Yellow Percent of Wound Bed Granulated/Red: 95 Percent of Devitalized: 5 Length (cm): 5 Width (cm): 5 Depth (cm): 5 CM Sq: 25.000 Undermining Position: 12-6:00 Undermining Depth: 1 Surrounding Tissue Appearance: Macerated Surrounding Tissue Temp: Warm Drainage Amount: Large Drainage Description: Serosanguineous Drainage Odor: No Odor Lidocaine Applied Topically: 2% Jelly Left Ischium: Bed Appearance: Beefy Red, Bone Palpable, Devitalized, Nason and Yellow Percent of Wound Bed Granulated/Red: 95 Percent of Devitalized: 5 Length (cm): 1.6 Width (cm): 1.6 Depth (cm): 3.5 CM Sq: 2.560 Undermining Position: 10-3:00 Undermining Depth: 3.5 Surrounding Tissue Appearance: Macerated Surrounding Tissue Temp: Warm Drainage Amount: Moderate Drainage Description: Serosanguineous Drainage Odor: No Odor Lidocaine Applied Topically: 2% Jelly Right Buttock: Bed Appearance: Devitalized, Nason and Yellow Percent of Wound Bed Granulated/Red: 95 Percent of Devitalized: 5 Length (cm): 1.5 Width (cm): 0.5 Depth (cm): 0.1 CM Sq: 0.750 Surrounding Tissue Appearance: Nason and Callous Surrounding Tissue Temp: Warm Drainage Amount: Small Drainage Description: Serosanguineous Drainage Odor: No Odor Lidocaine Applied Topically: 2% Jelly Right Lower Lateral Leg: Bed Appearance: Beefy Red, Devitalized, Nason and Yellow Percent of Wound Bed Granulated/Red: 10 Percent of Devitalized: 90 Length (cm): 0 Width (cm): 0 Depth (cm): 0 CM Sq: 0.000 Surrounding Tissue Appearance: Hyperpigmented Surrounding Tissue Temp: Warm Drainage Amount: None Drainage Description: Serosanguineous Drainage Odor: No Odor Lidocaine Applied Topically: 2% Jelly Right Lower Medial Leg: Bed Appearance: Devitalized, Epithelial Tissue or Bridge, Nason and Yellow Percent of Wound Bed Granulated/Red: [...] Diabetes mellitus type: type 2 Diabetes mellitus remote computer terminal operator insulin use:with skilled nursing use Diabetes mellitus complication status: with skin [...] by MD Cathy Brar> 12/23/21 1232 [facility] Work Phone: 1(185) [phone] Progress note Author Cathy Brar [facility] November 18, 2021 11:55amNote Date/TimeAugust 2021 11:55am[place] [address] Wound Center Provider Note Signed Patient: Ganga Stinson MR#: [id number] : 1960 Acct:[id number] Age/Sex: 61 / M Copies to: MD [...] Bed Appearance: Beefy Red, Bone Palpable, Devitalized, Nason and Yellow Percent of Wound Bed Granulated/Red: 75 Percent of Devitalized: 25 Length (cm): 3.5 Width (cm): 2.0 Depth (cm): 2.5 CM Sq: 7.000 Undermining Position: 360 (deepest at 3) Undermining Depth: 3.5 Surrounding Tissue Appearance: Hyperpigmented Surrounding Tissue Temp: Warm Drainage Amount: Large Drainage Description: Serosanguineous Drainage Odor: No Odor Lidocaine Applied Topically: 2% Jelly Right Heel: Bed Appearance: Devitalized, Nason and Yellow Percent of Wound Bed Granulated/Red: 1 Percent of Devitalized: 99 Length (cm): 1.6 Width (cm): 2.3 Depth (cm): 0.1 CM Sq: 3.680 Surrounding Tissue Appearance: Hyperpigmented Surrounding Tissue Temp: Warm Drainage Amount: Large Drainage Description: Serosanguineous Drainage Odor: No Odor Lidocaine Applied Topically: 2% Jelly Right Ischium: Bed Appearance: Beefy Red, Bone Palpable, Devitalized, Epithelial Tissue or Bridge, Nason and Yellow Percent of Wound Bed Granulated/Red: [...] Bed Appearance: Beefy Red, Bone Palpable, Devitalized, Nason and Yellow Percent of Wound Bed Granulated/Red: 90 Percent of Devitalized: 10 Length (cm): 2.0 Width (cm): 2.0 Depth (cm): 3.5 CM Sq: 4.000 Undermining Position: 9-11:00 Undermining Depth: 4.0 Surrounding Tissue Appearance: Hyperpigmented Surrounding Tissue Temp: Warm Drainage Amount: Moderate Drainage Description: Serosanguineous Drainage Odor: No Odor Lidocaine Applied Topically: 2% Jelly Right Buttock: Bed Appearance: Beefy Red, Devitalized, Nason and Yellow Percent of Wound Bed Granulated/Red: 95 Percent of Devitalized: 5 Length (cm): 2.4 Width (cm): 1.0 Depth (cm): 0.1 CM Sq: 2.400 Surrounding Tissue Appearance: Hyperpigmented Surrounding Tissue Temp: Warm Drainage Amount: Moderate Drainage Description: Serosanguineous Drainage Odor: No Odor Lidocaine Applied Topically: 2% Jelly Right Lower Lateral Leg: Bed Appearance: Beefy Red, Devitalized, Nason and Yellow Percent of Wound Bed Granulated/Red: 10 Percent of Devitalized: 90 Length (cm): 1.3 Width (cm): 1.4 Depth (cm): 0.1 CM Sq: 1.820 Surrounding Tissue Appearance: Hyperpigmented Surrounding Tissue Temp: Warm Drainage Amount: Moderate Drainage Description: Serosanguineous Drainage Odor: No Odor Lidocaine Applied Topically: 2% Jelly Right Lower Medial Leg: Bed Appearance: Black Dry, Devitalized, Epithelial Tissue or Bridge, Nason and Yellow Percent of Wound Bed Granulated/Red: [...] Diabetes mellitus type: type 2 Diabetes mellitus remote computer terminal operator insulin use:with remote computer terminal operator use Diabetes mellitus complication [...] by MD Cathy Brar> 11/18/21 1155 [facility] Work Phone: 1(111) [phone] Progress note Author Cathy Brar [facility] October 21, 2021 11:44amNote Date/TimeJuly 2021 11:44[place] [address] Wound Center Provider Note Signed Patient: Ganga Stinson MR#: [id number] : 1960 Acct:[id number] Age/Sex: 61 / M Copies to: MD [...] Bed Appearance: Beefy Red, Bone Palpable, Devitalized, Nason and Yellow Percent of Wound Bed Granulated/Red: 75 Percent of Devitalized: 25 Length (cm): 4.2 Width (cm): 3.0 Depth (cm): 3.0 CM Sq: 12.600 Undermining Position: 360 (deepest at 3) Undermining Depth: 3.5 Surrounding Tissue Appearance: Hyperpigmented Surrounding Tissue Temp: Warm Drainage Amount: Large Drainage Description: Serosanguineous Drainage Odor: No Odor Lidocaine Applied Topically: 2% Jelly Right Heel: Bed Appearance: Devitalized, Nason and Yellow Percent of Wound Bed Granulated/Red: 50 Percent of Devitalized: 50 Length (cm): 2.3 Width (cm): 3.2 Depth (cm): 0.1 CM Sq: 7.360 Surrounding Tissue Appearance: Hyperpigmented Surrounding Tissue Temp: Warm Drainage Amount: Large Drainage Description: Serosanguineous Drainage Odor: No Odor Lidocaine Applied Topically: 2% Jelly Right Ischium: Bed Appearance: Beefy Red, Bone Palpable, Devitalized, Epithelial Tissue or Bridge, Nason and Yellow Percent of Wound Bed Granulated/Red: [...] Bed Appearance: Beefy Red, Bone Palpable, Devitalized, Nason and Yellow Percent of Wound Bed Granulated/Red: 90 Percent of Devitalized: 10 Length (cm): 3.0 Width (cm): 1.6 Depth (cm): 4.5 CM Sq: 4.800 Undermining Position: 9-11:00 Undermining Depth: 1.0 Surrounding Tissue Appearance: Hyperpigmented Surrounding Tissue Temp: Warm Drainage Amount: Moderate Drainage Description: Serosanguineous Drainage Odor: No Odor Lidocaine Applied Topically: 2% Jelly Right Buttock: Bed Appearance: Beefy Red, Devitalized, Nason and Yellow Percent of Wound Bed Granulated/Red: 80 Percent of Devitalized: 20 Length (cm): 2.2 Width (cm): 1.1 Depth (cm): 0.1 CM Sq: 2.420 Surrounding Tissue Appearance: Hyperpigmented Surrounding Tissue Temp: Warm Drainage Amount: Moderate Drainage Description: Serosanguineous Drainage Odor: No Odor Lidocaine Applied Topically: 2% Jelly Right Lower Lateral Leg: Bed Appearance: Beefy Red, Devitalized, Nason and Yellow Percent of Wound Bed Granulated/Red: 10 Percent of Devitalized: 90 Length (cm): 1.3 Width (cm): 1.4 Depth (cm): 0.1 CM Sq: 1.820 Surrounding Tissue Appearance: Hyperpigmented Surrounding Tissue Temp: Warm Drainage Amount: Moderate Drainage Description: Serosanguineous Drainage Odor: No Odor Lidocaine Applied Topically: 2% Jelly Right Lower Medial Leg: Bed Appearance: Black Dry, Devitalized, Nason and Yellow Percent of Wound Bed Granulated/Red: 80 Percent of Devitalized: 20 Length (cm): 1.6 Width (cm): 2.5 Depth (cm): 0.1 CM Sq: 4.000 Surrounding Tissue Appearance: Hyperpigmented Surrounding Tissue Temp: Warm Drainage Amount: Moderate Drainage Description: Serosanguineous Drainage Odor: No Odor Lidocaine Applied Topically: 2% Jelly Right Foot: Bed Appearance: Beefy Red, Devitalized, Epithelial Tissue or Bridge, Nason and Yellow Percent of Wound Bed Granulated/Red: [...] Diabetes mellitus type: type 2 Diabetes mellitus remote computer terminal operator insulin use:with skilled nursing use Diabetes mellitus complication status: with skin [...] by MD Cathy Brar> 10/21/21 1144 [facility] Work Phone: 1(382) 792-475306-21-2022 Progress note Author Cathy Brar [facility] September 16, 2021 11:55amNote Date/TimeJune 2021 11:51am[place] [address] Wound Center Provider Note Signed Patient: Ganga Stinson MR#: [id number] : 1960 Acct:[id number] Age/Sex: 61 / M Copies to: MD [...] PRN 7 Days #28 tab 09/04/21 [Rx Sepfefkyo86/21/22] Allergies vancomycin Allergy (Severe, Verified 09/04/21 09:28) Shut kidneys down Wound/Ulcer Sacrum: Bed Appearance: Bone Palpable, Devitalized, Nason and Yellow Percent of Wound Bed Granulated/Red: [...] Heel: Bed Appearance: Black Moist, Brown, Devitalized, Nason and Yellow Percent of Wound Bed Granulated/Red: 95 Percent of Devitalized: 5 Length (cm): 3.4 Width (cm): 5.1 Depth (cm): 0.1 CM Sq: 17.340 Surrounding Tissue Appearance: Hyperpigmented Surrounding Tissue Temp: Warm Drainage Amount: Large Drainage Description: Serosanguineous Drainage Odor: No Odor Lidocaine Applied Topically: 2% Jelly Right Ischium: Bed Appearance: Beefy Red, Devitalized, Epithelial Tissue or Bridge, Nason and Yellow Percent of Wound Bed Granulated/Red: 90 Percent of Devitalized: 10 Length (cm): 5.1 Width (cm): 5.5 Depth (cm): 4 CM Sq: 28.050 Undermining Position: 1-3:00 Undermining Depth: 1.5 Surrounding Tissue Appearance: Hyperpigmented Surrounding Tissue Temp: Warm Drainage Amount: Large Drainage Description: Serosanguineous Drainage Odor: No Odor Lidocaine Applied Topically: 2% Jelly Left Ischium: Bed Appearance: Beefy Red, Bone Palpable, Devitalized, Nason and Yellow Percent of Wound Bed Granulated/Red: 90 Percent of Devitalized: 10 Length (cm): 3.9 Width (cm): 1.8 Depth (cm): 5 CM Sq: 7.020 Undermining Position: 9-11:00 Undermining Depth: 2.2 Surrounding Tissue Appearance: Hyperpigmented Surrounding Tissue Temp: Warm Drainage Amount: Moderate Drainage Description: Serosanguineous Drainage Odor: No Odor Lidocaine Applied Topically: 2% Jelly Right Buttock: Bed Appearance: Beefy Red, Devitalized, Nason and Yellow Percent of Wound Bed Granulated/Red: 99 Percent of Devitalized: 1 Length (cm): 2.3 Width (cm): 0.9 Depth (cm): 0.2 CM Sq: 2.070 Surrounding Tissue Appearance: Hyperpigmented Surrounding Tissue Temp: Warm Drainage Amount: Moderate Drainage Description: Serosanguineous Drainage Odor: No Odor Lidocaine Applied Topically: 2% Jelly Right Lower Lateral Leg: Bed Appearance: Beefy Red, Devitalized, Nason and Yellow Percent of Wound Bed Granulated/Red: 20 Percent of Devitalized: 80 Length (cm): 3.8 Width (cm): 2.3 Depth (cm): 0.1 CM Sq: 8.740 Surrounding Tissue Appearance: Hyperpigmented Surrounding Tissue Temp: Warm Drainage Amount: Moderate Drainage Description: Serosanguineous Drainage Odor: No Odor Lidocaine Applied Topically: 2% Jelly Right Lower Medial Leg: Bed Appearance: Black Dry, Devitalized, Nason and Yellow Percent of Wound Bed Granulated/Red: 75 Percent of Devitalized: 25 Length (cm): 2.5 Width (cm): 2.7 Depth (cm): 0.2 CM Sq: 6.750 Surrounding Tissue Appearance: Hyperpigmented Surrounding Tissue Temp: Warm Drainage Amount: Moderate Drainage Description: Serosanguineous Drainage Odor: No Odor Lidocaine Applied Topically: 2% Jelly Right Foot: Bed Appearance: Beefy Red, Devitalized, Epithelial Tissue or Bridge, Nason and Yellow Percent of Wound Bed Granulated/Red: [...] Diabetes mellitus type: type 2 Diabetes mellitus skilled nursing insulin use:with skilled nursing use Diabetes mellitus complication status: with skin [...] signed by MD Cathy Brar> 09/16/21 1155 [facility] Work Phone: [phone]) 155-502305-03-2022 Progress note Author Cathy Brar [facility] July 29, 2021 12:33pmNote Date/TimeMay 2021 12:33pm[place] [address] Wound Center Provider Note Signed Patient: Ganga Stinson MR#: [id number] : 1960 Acct:[id number] Age/Sex: 61 / M Copies to: MD [...] down Wound/Ulcer Sacrum: Bed Appearance: Bone Palpable, Nason and Yellow Percent of Wound Bed Granulated/Red: 50 Percent of Devitalized: 50 Length (cm): 2.6 Width (cm): 2.0 Depth (cm): 3.0 CM Sq: 5.200 Undermining Position: 9-4 (deepest at 4) Undermining Depth: 5.4 Surrounding Tissue Appearance: Hyperpigmented Surrounding Tissue Temp: Warm Drainage Amount: Large Drainage Description: Serosanguineous Drainage Odor: No Odor Lidocaine Applied Topically: 2% Jelly Right Heel: Bed Appearance: Black Moist, Brown, Nason and Yellow Percent of Wound Bed Granulated/Red: 15 Percent of Devitalized: 85 Length (cm): 6.0 Width (cm): 9.0 Depth (cm): 0.5 CM Sq: 54.000 Surrounding Tissue Appearance: Hyperpigmented Surrounding Tissue Temp: Warm Drainage Amount: Large Drainage Description: Serosanguineous Drainage Odor: No Odor Lidocaine Applied Topically: 2% Jelly Right Ischium: Bed Appearance: Beefy Red, Epithelial Tissue or Bridge, Nason and Yellow Percent of Wound Bed Granulated/Red: 50 Percent of Devitalized: 50 Length (cm): 9.3 Width (cm): 7.9 Depth (cm): 5.2 CM Sq: 73.470 Undermining Position: 360 (deepest at 7) Undermining Depth: 2.3 Surrounding Tissue Appearance: Hyperpigmented Surrounding Tissue Temp: Warm Drainage Amount: Large Drainage Description: Serosanguineous Drainage Odor: No Odor Lidocaine Applied Topically: 2% Jelly Left Ischium: Bed Appearance: Nason and Yellow Percent of Wound Bed Granulated/Red: 50 Percent of Devitalized: 50 Length (cm): 1.7 Width (cm): 1.5 Depth (cm): 3.5 CM Sq: 2.550 Undermining Position: 3-8 Undermining Depth: 4.5 Surrounding Tissue Appearance: Hyperpigmented Surrounding Tissue Temp: Warm Drainage Amount: Moderate Drainage Description: Serosanguineous Drainage Odor: No Odor Lidocaine Applied Topically: 2% Jelly Right Buttock: Bed Appearance: Beefy Red, Nason and Yellow Percent of Wound Bed Granulated/Red: 75 Percent of Devitalized: 25 Length (cm): 6.6 Width (cm): 2.0 Depth (cm): 0.1 CM Sq: 13.200 Surrounding Tissue Appearance: Hyperpigmented Surrounding Tissue Temp: Warm Drainage Amount: Moderate Drainage Description: Serosanguineous Drainage Odor: No Odor Lidocaine Applied Topically: 2% Jelly Right Lower Lateral Leg: Bed Appearance: Beefy Red, Nason and Yellow Percent of Wound Bed Granulated/Red: 50 Percent of Devitalized: 50 Length (cm): 1.8 Width (cm): 1.5 Depth (cm): 0.1 CM Sq: 2.700 Surrounding Tissue Appearance: Hyperpigmented Surrounding Tissue Temp: Warm Drainage Amount: Moderate Drainage Description: Serosanguineous Drainage Odor: No Odor Lidocaine Applied Topically: 2% Jelly Right Lower Medial Leg: Bed Appearance: Black Dry, Nason and Yellow Percent of Wound Bed Granulated/Red: [...] Diabetes mellitus type: type 2 Diabetes mellitus skilled nursing insulin use:with remote computer terminal operator use Diabetes mellitus complication [...] will attempt to obtain that note from knife operator in [place]. See Instructions for Orders See Instructions for Orders See Wound Discharge Instructions for Orders: Patient may require serial debridement to remove devitalized tissue and encourage granulation. Dictated By: Cathy Brra MD DD/ [id number] Signed By: <Electronically signed by MD Cathy Brar> 07/29/21 123 [facility] Work Phone: Evaluation + Plan note No data available for this section [facility] evaluation note* Diagnosis Onset Date Resolution Status Right hip pain acuteStage IV pressure ulcer of sacral regionacuteUnstageable pressure ulcer of right heelacuteCauda equina spinal cord injurychronicDiabeteschronicPressure ulcer of left hip, stage 3resolvedPressure ulcer of right hip, stage 3resolved [facility] Work Phone: Evaluation note* Diagnosis Neurogenic bladder Neurogenic bladder, NOS documented in this encounter [facility] Phone: [email or web address] note* Diagnosis Neurogenic bladder Neurogenic bladder, NOS documented in this encounter [facility] Phone: [email or web address] note* Diagnosis Hyperkalemia- Primary Hyperpotassemia Acute kidney [...] of neurogenic bladder documented in this encounter [facility] Phone: evaluation note* Diagnosis Acute kidney injury (HCC) Acute kidney failure, unspecified Iron deficiency anemia, unspecified iron deficiency anemia type documented in this encounter [facility] Phone: [email or web address] note* Diagnosis Onset Date Resolution Status Pressure injury of left ischium, stage 4 acutePressure injury of right ischium, stage 4acutePressure ulcer of right foot, stage 2acuteRight hip painacuteStage IV pressure ulcer of sacral regionacute Cauda equina spinal cord injurychronicDiabeteschronic [facility] Work Phone: Evaluation note* Diagnosis Cauda equina syndrome (HCC) Cauda equina syndrome without mention of neurogenic bladder Neurogenic bladder Neurogenic bladder, NOS Urinary retention Retention of urine, unspecified Urinary incontinence without sensory awareness Incontinence without sensory awareness [facility] Diagnosis Cellulitis of left foot- Primary Ulcer of left ankle, with necrosis of bone (HCC) ([facility]) Diabetes mellitus due to underlying condition with diabetic polyneuropathy, unspecified whether remote computer terminal operator insulin use ([facility]) Acute complete paraplegia ([facility]) Acute osteomyelitis of left fibula ([facility]) Foot ulcer, right, with fat layer exposed ([facility]) Venous insufficiency Unspecified venous (peripheral) insufficiency documented in this encounter [facility] HealthcareEvaluation [facility]* Diagnosis Abscess of toe, right- Primary documented in this encounter [facility]* Diagnosis Onset Date Resolution Status [id number] acuteFoot ulcer with fat layer exposedacuteStage IV pressure ulcer of right buttockacuteStage IV pressure ulcer of sacral regionacuteCauda equina spinal cord injurychronicPressure ulcer of left buttock, stage 3chronic [facility] Work Phone: Evaluation note* Diagnosis Type 2 diabetes mellitus with hyperglycemia, without long-term current use of insulin ([facility])- Primary Dyslipidemia ([facility]) Other and unspecified hyperlipidemia Benign hypertension ([facility]) Essential hypertension, benign Major depressive disorder, recurrent episode, mild (HCC) ([facility]) Major depressive disorder, recurrent episode, mild Incontinence overflow, urine Overflow incontinence Chronic superficial 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 Type 2 diabetes mellitus with hyperglycemia, without long-term current use of insulin ([facility])- Primary Benign hypertension ([facility]) Essential hypertension, benign Major depressive disorder, recurrent episode, mild (HCC) ([facility]) Major depressive disorder, recurrent episode, mild Incontinence overflow, urine Overflow incontinence Pruritus Unspecified pruritic disorder Chronic kidney disease, stage 3a (HCC) ([facility]) Encounter for long-term (current) use of medications Encounter for long-term (current) use of other medications Cauda equina syndrome ([facility]/HCC) Cauda equina syndrome without mention of neurogenic bladder Urticaria- Primary Unspecified urticaria documented in [facility] encounter [facility]* Diagnosis Type 2 diabetes mellitus with hyperglycemia, without long-term current use of insulin ([facility])- Primary Dyslipidemia ([facility]) Other and unspecified hyperlipidemia Benign hypertension ([facility]) Essential hypertension, benign Major depressive disorder, recurrent episode, mild (HCC) ([facility]) Major depressive disorder, recurrent episode, mild Incontinence overflow, urine Overflow incontinence Chronic superficial 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 Type 2 diabetes mellitus with hyperglycemia, without long-term current use of insulin ([facility])- Primary Benign hypertension ([facility]) Essential hypertension, benign Major depressive disorder, recurrent episode, mild (HCC) ([facility]) Major depressive disorder, recurrent episode, mild Incontinence overflow, urine Overflow incontinence Pruritus Unspecified pruritic disorder Chronic kidney disease, stage 3a (HCC) ([facility]) Encounter for long-term (current) use of medications Encounter for long-term (current) use of other medications Cauda equina syndrome ([facility]) Cauda equina syndrome without mention of neurogenic bladder Urticaria- Primary Unspecified urticaria Pruritus Unspecified pruritic disorder documented in this encounter [facility]* Diagnosis Type 2 diabetes mellitus with hyperglycemia, without long-term current use of insulin ([facility])- Primary Benign hypertension ([facility]) Essential hypertension, benign Major depressive disorder, recurrent episode, mild (HCC) ([facility]) Major depressive disorder, recurrent episode, mild Incontinence overflow, urine Overflow incontinence Pruritus Unspecified pruritic disorder Chronic kidney disease, stage 3a (HCC) ([facility] Encounter for long-term (current) use of medications Encounter for long-term (current) use of other medications Cauda equina syndrome ([facility]) Cauda equina syndrome without mention of neurogenic bladder documented in this encounter [facility]* Diagnosis Type 2 diabetes mellitus with hyperglycemia, without long-term current use of insulin ([facility])- Primary Dyslipidemia ([facility]) Other and unspecified hyperlipidemia Benign hypertension ([facility]) Essential hypertension, benign Major depressive disorder, recurrent episode, mild (HCC) ([facility]) Major depressive disorder, recurrent episode, mild Incontinence overflow, urine Overflow incontinence Chronic superficial 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 Type 2 diabetes mellitus with hyperglycemia, without long-term current use of insulin ([facility])- Primary Benign hypertension ([facility]/HCC) Essential hypertension, benign Major depressive disorder, recurrent episode, mild (HCC) ([facility]/HCC) Major depressive disorder, recurrent episode, mild Incontinence overflow, urine Overflow incontinence Pruritus Unspecified pruritic disorder Chronic kidney disease, stage 3a (HCC) ([facility]) Encounter for long-term (current) use of medications Encounter for long-term (current) use of other medications Cauda equina syndrome ([facility]) Cauda equina syndrome without mention of neurogenic bladder Urticaria- Primary Unspecified urticaria Type 2 diabetes mellitus with hyperglycemia, without long-term current use of insulin ([facility])- Primary Benign hypertension ([facility]/HCC) Essential hypertension, benign Major depressive disorder, recurrent episode, mild (HCC) ([facility]) Major depressive disorder, recurrent episode, mild Incontinence overflow, urine Overflow incontinence Chronic superficial 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 Urticaria Unspecified urticaria Pruritus Unspecified pruritic disorder Annual physical exam Routine general medical examination at a health care facility Chronic kidney disease, stage 3a (HCC) ([facility]) Class 2 severe obesity due to excess calories with serious comorbidity and body mass index (BMI) of36.0 to 36.9 in adult ([facility]) Type 2 diabetes mellitus with other specified complication Hyperlipidemia, unspecified ([facility]) Pressure ulcer of right heel, unstageable ([facility]) Type 2 diabetes mellitus with other skin ulcer (CODE) Paraplegia, unspecified Diabetes mellitus due to underlying condition with diabetic polyneuropathy ([facility]) documented in this encounter [facility]* Diagnosis Type 2 diabetes [...] pruritic disorder Chronic kidney disease, stage 3a ([facility]) Encounter for long-term [...] exam Routine general medical examination at a [facility] care facility Chronic kidney disease, stage 3a ([facility]) Class 2 severe obesity due to excess calories with serious comorbidity and body mass index (BMI) of36.0 to 36.9 in adult ([facility]) Type 2 diabetes mellitus with other specified complication ([facility]) Hyperlipidemia, unspecified Pressure ulcer of right heel, unstageable ([facility]) Type 2 diabetes mellitus with other skin ulcer (CODE) ([facility]) Paraplegia, unspecified ([facility]) Diabetes mellitus due to underlying condition with diabetic polyneuropathy ([facility]) Type 2 diabetes mellitus with hyperglycemia, without long-term current use of insulin ([facility]) documented in this encounter [facility]* Diagnosis Type 2 diabetes mellitus with hyperglycemia, without long-term current use of insulin ([facility])- Primary Dyslipidemia Other and unspecified hyperlipidemia Benign [...] pruritic disorder Chronic kidney disease, stage 3a ([facility]) Encounter for long-term [...] care facility Chronic kidney disease, stage 3a ([facility]) Class 2 severe obesity due to excess calories with serious comorbidity and body mass index (BMI) of36.0 to 36.9 in adult ([facility]) Type 2 diabetes mellitus with other specified complication (HCC) Hyperlipidemia, unspecified Pressure ulcer of right heel, unstageable ([facility]) Type 2 diabetes mellitus with other skin ulcer (CODE) ([facility]) Paraplegia, unspecified ([facility]) Diabetes mellitus due to underlying condition with diabetic polyneuropathy ([facility]) Primary hypertension Unspecified essential hypertension Benign hypertension Essential hypertension, benign Type 2 diabetes mellitus with hyperglycemia, without long-term current use of insulin (HCC) Dyslipidemia Other and unspecified hyperlipidemia [facility] Additional Instructions DISCHARGE INSTRUCTIONS FOR [...] operative site FOLLOW UP Phone numbers: Office [phone] [facility] Work Phone: Hospital Discharge instructions No data available for this section [facility] Hospital Discharge instructions Additional Instructions Wound/Ulcer Instructions/Orders Left Ischium: Dressing: Cleanse with Dakins or saline, saline on 4X4 gauze packing or kerlix, ABD, Kerlix, drawtex, Secure/wrap: Skin prep prior to adhesive [facility] Work Phone: InstructionsNot on filedocumented in this encounter [facility] SystemProgress note No data available for this section [facility] reason for referral (narrative)No reason for referral information availableOhiohealth O'[facility] Work Phone: Summary Purpose Family History No Family History Records Found Relationship Condition Age at Onset Recorded Date/T alverto father Autoimmune disorder Unknown Not SpecifiedMyocardial infarctionUnknownHypertensionUnknown Relationship Condition Age at Onset Recorded Date/T alverto father Autoimmune disorder Unknown Not SpecifiedMyocardial infarctionUnknownHypertensionUnknownfatherDeceased UnknownNot SpecifiedHypertensionUnknownDeceasedUnknownHeart diseaseUnknown Relationship Condition Age at Onset Recorded Date/T alverto father Autoimmune disorder Unknown motherMyocardial infarctionUnknownHypertensionUnknownfatherDeceasedUnknownmother HypertensionUnknownDeceasedUnknownHeart diseaseUnknown Relationship Condition Age at Onset Recorded Date/T alverto father Autoimmune disorder Unknown DeceasedUnknownmotherMyocardial infarctionUnknownHypertensionUnknownHeart diseaseUnknown Advance Directives No Advanced Directives Records Found Advance Directive Response Recorded Date/ Time Advance Directives No November 8:39am Code StatusDate ActivatedDate InactivatedCommentsFull Code06/22/2022 8:18 PMFull Code06/14/2017 10:11 AM06/14/2017 1:27 PMFull Code04/09/2017 1:19 AM04/13/2017 11:55 PMFull Code12/25/2016 1:27 PM10 4:28 PMFull Code12/23/2016 10:36 PM 12/25/2016 1:27 PMCode StatusDate ActivatedDate InactivatedCommentsFull Code 06/22/2022 8:18 PMFull Code06/14/2017 10:11 AM06/14/2017 1:27 PMFull Code04/09/2017 1:19 AM04/13/2017 11:55 PMFull Code12/25/2016 1:27 PM10 4:28 PMFull Code 12/23/2016 10:36 PM12/25/2016 1:27 PMNameRelationshipHealthcare Agent Relationship CommunicationEve AllowaySpousePrimary Decision Maker* Code StatusDate ActivatedDate InactivatedCommentsFull Code06/22/2022 8:18 PM 06/26/2022 7:20 PMCode StatusDate ActivatedDate InactivatedCommentsFull Code 06/14/2017 10:11 AM06/14/2017 1:27 PMFull Code04/09/2017 1:19 AM04/13/2017 11:55 PM Full Code12/25/2016 1:27 PM10 4:28 PMFull Code12/23/2016 10:36 PM12/25/2016 1:27 PMNameRelationshipHealthcare Agent RelationshipCommunicationEve Alloway SpousePrimary Decision Maker* Advance Directive Response Recorded Date/ Time Advance Directives No November 9:39am Code StatusDate ActivatedDate InactivatedCommentsFull Code2022 9:37 AM 2022 3:54 PMCode StatusDate ActivatedDate InactivatedCommentsFull Code 06/22/2022 8:18 PM06/26/2022 7:20 PMFull Code06/14/2017 10:11 AM06/14/2017 1:27 PM Full Code04/09/2017 1:19 AM04/13/2017 11:55 PMFull Code12/25/2016 1:27 PM10 4:28 PMNameRelationshipHealthcare Agent RelationshipCommunicationEve Alloway SpousePrimary Decision Maker* Advance Directive Response Recorded Date/ Time Advance Directives No January 11, 2025 1:24pm Advance Directive Response Recorded Date/ Time Advance Directives No January 11, 2025 12:24pm Chief Complaint and Reason for Visit Chief [...] Complaint Open Wound Left Fibula Osteomyelitis, Diabetes, UlcerativeReason for [id number] Foot ulcer with fat layer exposed 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 Cauda equina spinal cord injury Pressure ulcer of left buttock, stage 3 Chief Complaint Open Wound Left Fibula Osteomyelitis, Diabetes, Ulcerative UnknownReason for [id number] Foot ulcer with fat layer exposed Stage [...] Cauda equina spinal cord injury September 10:30am Chief Complaint Admit Date Open Wound January 23, 2025 1 0:54am Ref: Dr. Hernandes - Abscess L. Ankle O ctober 2024 1:03pm Reason for Visit Admit Date Diabetes mellitus due to und erlying condition with diabetic neuropathy, wit January 23, 2025 10:54am Pressure injury of left ischium, stage 4 January 23, 2025 10:54am Pressure injury of right ischium, stage 4 January 23, 2025 10:54am Stage IV pressure ulcer of sacral region January 23, 2025 10:54am Cauda equina spinal cord injury January 23, 2025 10:54am Chief Complaint Admit Date Open Wound January 23, 2025 1 0:54am Ref: Dr. Hernandes - Abscess L. Ankle O ctober 2024 [...] long-term current use February 01, 2025 9:41am Reason for Referral SpecialtyDiagnoses / ProceduresReferred By ContactReferred To ContactCardiology Diagnoses Neurogenic bladder Procedures EKG 12 Lead Angeles Nagy MD [address], [address] [place] [address] Referral IDStatusReasonStart DateExpiration DateVisits RequestedVisits [id number] Review/[id number] / ProceduresReferred By ContactReferred To ContactRadiology Diagnoses Cauda equina syndrome (HCC) Neurogenic bladder Urinary retention Urinary incontinence without sensory awareness Procedures US RENAL COMPLETE Ashlee Erwin, TYPEWRITER ALIGNER - PASTE UP ARTIST APPRENTICE [address] [place] [address] Referral IDStatusReasonStart DateExpiration DateVisits RequestedVisits [id number]// Additional Source Comments (unrecognized sect ion and content) No Status Records FoundNo Status Records FoundNo Status Records FoundNo Status Records FoundNo Status Records FoundNo Status Records FoundNo Status Records Found INFORMATION SOURCE (unrecogn ized section and content) DATE CREATED AUTHOR 09/21/2017 [facility] DATE CREATED AUTHOR AUTHOR'S ORGANIZ ATION 04/08/2022 [facility] DATE CREATED AUTHOR AUTHOR'S ORGANIZ ATION 09/27/2022 [facility] DATE CREATED AUTHOR AUTHOR'S ORGANIZ ATION 10/22/2023 [facility] DATE CREATED AUTHOR AUTHOR'S ORGANIZ ATION 08/03/2024 [facility] DATE CREATED AUTHOR AUTHOR'S ORGANIZ ATION 01/17/2025 [facility] DATE CREATED AUTHOR AUTHOR'S ORGANIZ ATION 02/01/2025 [facility] Care Teams (unrecognized sec tion and content) Team Status: Active Member Role Status Dates Fidel Abbott MD Primary Care Provider Active Team Status: Active Member Role Status Dates Fidel Abbott MD Primary Care Provider Active S tart: March 10, 2024 Avelino Castanon DOAttole ProviderActiveStart: March 10, 2024 Team Status: Inactive Member Role Status Dates Cathy Brar MD Attending Provider Active Sta rt: March 14, 2024 End: March 14, 2024[facility] Patrick Care ProviderActiveStart: March 14, 2024 End: March 14, 2024 Team Status: Inactive Member Role Status Dates Fidel Abbott MD Primary Care Provider Active Cathy Brar MDAttole ProviderActiveTeam MemberRelationshipSpecialtyStart DateEnd Date Fidel Abbott MD PCP - General07/03/15Team MemberRelationshipSpecialtyStart DateEnd Date Fidel Abbott MD PCP - General07/03/15Team MemberRelationshipSpecialtyStart DateEnd Date Fidel Abbott MD PCP - General07/03/15Team MemberRelationshipSpecialtyStart DateEnd Date Fidel Abbott MD PCP - General07/03/15Team MemberRelationshipSpecialtyStart DateEnd Date Fidel Abbott MD PCP - General07/03/15Team MemberRelationshipSpecialtyStart DateEnd Date Fidel Abbott MD PCP - [facility] Medicine12/10/22 Fidel Abbott MD [address] [place] [address] PCP - [place] [employer]03/29/23Team MemberRelationshipSpecialtyStart DateEnd Date Fidel Abbott MD PCP - [facility]12/10/22 Fidel Abbott MD [address] [place] [address] PCP - [place] [employer]03/29/23Team MemberRelationshipSpecialtyStart DateEnd Date Fidel Abbott MD [address] [place] [address] PCP - [place] [employer]03/29/23 Fidel Abbott MD [address] [place] [address] PCP - [facility]05/12/23 Team Status: Inactive Member Role Status Dates Fidel Abbott MD Primary Care Provider Active S tart: May 04, 2023 End: May 04onelia Brar MDAttole ProviderActiveStart: May 04, 2023 End: May 04, 2023 Team Status: Inactive Member Role Status Dates Fidel Abbott MD Primary Care Provider Active S tart: June 04, 2023 End: June 04, 2023JUSTIN Nathanttending ProviderActiveStart: June 04, 2023 End: June 04, 2023 Team Status: Inactive Member Role Status Dates ZANDER XieM MS Attending Provider Active Start: July 08, 2023 End: July 08, 2023Team MemberRelationshipSpecialtyStart DateEnd Date Fidel Abbott MD PCP - Cqrbvog88/2/17Team MemberRelationshipSpecialtyStart DateEnd Date Fidel Abbott MD [address] [place] [address] PCP - [place] Vgwhfbswii28/1/23 Fidel Abbott MD [address] [place] [address] PCP - [facility]11/18/23Team MemberRelationshipSpecialtyStart DateEnd Date Fidel Abbott MD [address] [place] [address] PCP - [place] Ixkszeqrym34/1/23 Fidel Abbott MD [address] [place] [address] PCP - [facility]11/18/23 Team Status: Inactive Member Role Status Dates Fidel Abbott MD Primary Care Provider Active S tart: February 08, 2024 End: February 07Alice Belle ProviderActiveStart: February 08, 2024 End: February 08, 2024 Team Status: Active Member Role Status Dates Cathy Brar MD Attending Provider Active Sta rt: February 08, 2024 LAWR[facility] MeeksJack [facility] ProviderActiveStart: February 08, 2024 Team MemberRelationshipSpecialtyStart DateEnd Date Fidel Abbott MD [address] [place] [address] PCP - [place] Iuiwzblqho60/1/23 Fidel Abbott MD [address] [place] [address] PCP - [facility] Medicine11/18/23Team MemberRelationshipSpecialtyStart DateEnd Date Fidel Abbott MD [address] [place] [address] PCP - [place] Lfrbyheyki55/1/23 Fidel Abbott MD [address] [place] [address] PCP - [facility]11/18/23Team MemberRelationshipSpecialtyStart DateEnd Date Fidel Abbott MD [address] [place] [address] PCP - [place] Rbjggkkspd43/1/23 Fidel Abbott MD [address] [place] [address] PCP - [facility]11/18/23Team MemberRelationshipSpecialtyStart DateEnd Date Fidel Abbott MD PCP - Bkgftib02/2/17Team MemberRelationshipSpecialtyStart DateEnd Date Fidel Abbott MD PCP - Bkqrqya80Team MemberRelationshipSpecialtyStart DateEnd Date Fidel Abbott MD [address] [place] [address] PCP - [place] Tjmrxiuuzp57/1/23 Fidel Abbott MD [address] [place] [address] [facility] Fidel Abbott MD [address] [place] [address] PCP - [facility]05/05/24Team MemberRelationshipSpecialtyStart DateEnd Date Fidel Abbott MD [address] [place] [address] PCP - [place] Ewutvxgofx55/1/23 Fidel Abbott MD [address] [place] [address] [facility]23 Fidel Abbott MD [address] [place] [address] PCP - [facility]05/05/24Team MemberRelationshipSpecialtyStart DateEnd Date Fidel Abbott MD [address] [place] [address] PCP - [place] Mkqadzbxyt41/1/23 Fidel Abbott MD [address] [place] [address] PCP - [facility]11/18/23 Fidel Abbott MD [address] [place] [address] PCP - [facility]05/05/24Team MemberRelationshipSpecialtyStart DateEnd Date Fidel Abbott MD [address] [place] [address] PCP - [facility]11/18/23 Fidel Abbott MD [address] [place] [address] PCP - [facility]05/05/24 Alvin Gonzalez MA [facility]08/08/24 Team Status: Active Member Role Status Dates Fidel Abbott MD Primary Care Provider Active S tart: August 15, 2024 Cathy Brar MDAttending ProviderActiveStart: August 15, 2024 Team Status: Inactive Member Role Status Dates Fidel Abbott MD Primary Care Provider Active S tart: August 30, 2024 End: August 30, 2024Marichard Navarro MDActiveStart: August 30, 2024 End: August 30, 2024Tami Azul MARKET INVESTIGATOR-CAtteodoroding ProviderActiveStart: August 30, 2024 End: August 30, 2024Team MemberRelationshipSpecialtyStart DateEnd Date Fidel Abbott MD [address] [place] [address] PCP - [facility] Medicine11/18/23 Team Status: Inactive Member Role Status Dates Fidel Abbott MD Primary Care Provider Active S tart: August 30, 2024 End: August 30, 2024Tami Azul MARKET INVESTIGATOR-CAttending ProviderActiveStart: August 30, 2024 End: August 30, 2024 Team Status: Inactive Member Role Status Dates Fidel Abbott MD Primary Care Provider Active S tart: October 02, 2024 End: October 02lkim Brar MDAttending ProviderActiveStart: October 02, 2024 End: October 02, 2024Team MemberRelationshipSpecialtyStart DateEnd Date Fidel Abbott MD [address] [place] [address] PCP - [facility] Medicine11/18/23Team MemberRelationshipSpecialtyStart DateEnd Date Fidel Abbott MD [address] [place] [address] PCP - [facility] Medicine11/18/23Team MemberRelationshipSpecialtyStart DateEnd Date Fidel Abbott MD [address] [place] [address] PCP - [facility] Medicine11/18/23Team MemberRelationshipSpecialtyStart DateEnd Date Fidel Abbott MD [address] [place] [address] PCP - [place] Kgdhbadgev57/1/234 Fidel Abbott MD [address] [place] [address] PCP - GeneralFamily Medicine11/18/23 Fidel Abbott MD [address] [place] [address] PCP - [facility] Alvin Gonzalez MA [address] [place] [address] Family MedicineTeam MemberRelationshipSpecialtyStart DateEnd Date Fidel Abbott MD [address] [place] [address] PCP - [place] Ufgdcqclob70/1/234 Fidel Abbott MD [address] [place] [address] PCP - GeneralFamily Medicine Fidel Abbott MD [address] [place] [address] PCP - GeneralFamily Medicine Fidel Abbott MD [address] [place] [address] PCP - GeneralFamily Medicine11/18/23 Fidel Abbott MD [address] [place] [address] PCP - [facility] Alvin Gonzalez MA [address] [place] [address] [facility]5/// Team Status: Active Member Role/Relationship Status Dates Fidel Abbott MD Primary Care Provider Active Team Status: Active Member Role/Relationship Status Dates Fidel Abbott MD Primary Care Provider Active S tart: November 28, 2024 Nina River MDAttending ProviderActiveStart: November 28, 2024 Team Status: Active Member Role/Relationship Status Dates Fidel Abbott MD Primary Care Provider Active S tart: January 01, 2025 Jesus Hernandes DPM MSAttending ProviderActiveStart: January 01, 2025 Team Status: Active Member Role/Relationship Status Dates Fidel Abbott MD Primary Care Provider Active S tart: January 23, 2025 Cathy Brar MDAttending ProviderActiveStart: January 23, 2025 Team Status: Inactive Member Role/Relationship Status Dates Fidel Abbott MD Primary Care Provider Active S tart: January 25, 2025 End: January 25, 2025Miclori Morelos MDAttending ProviderActiveStart: January 25, 2025 End: January 25, 2025Jesus Hernandes DPM MSReferring ProviderActiveStart: January 25, 2025 End: January 25, 2025 Team Status: Inactive Member Role/Relationship Status Dates Fidel Abbott MD Primary Care Provider Active S tart: February 01, 2025 End: February 01, 2025Fidel Abbott MDAttending ProviderActiveStart: February 01, 2025 End: February 01, 2025 Goals (unrecognized section and content) Goals may [...] alternate section No data available for this sectionGoals may be documented in an alternate sectionGoals may be documented in an alternate section Reason for Visit (unrecogniz ed section and content) ReasonCommentsAbnormal LabPt sent from urology for abnormal pre-op bloodwork. Urology reports pt potassium is 6.1 and creatinine is 2.0. Sent pt here for evaluationSpecialtyDiagnoses / ProceduresReferred By ContactReferred To Contact Diagnoses Hyperkalemia Acute kidney injury (HCC) Matias Garcia MD [address] [place] [address] [facility] [address] [place] [address] Referral IDStatusReasonStart DateExpiration DateVisits RequestedVisits [id number] / ProceduresReferred By ContactReferred To ContactRadiology Diagnoses Cauda equina syndrome (HCC) Neurogenic bladder Urinary retention Urinary incontinence without sensory awareness Procedures US RENAL COMPLETE Ashlee Erwin, TYPEWRITER ALIGNER - PASTE UP ARTIST APPRENTICE [address] [place] [address] Referral IDStatusReasonStart DateExpiration DateVisits RequestedVisits [id number]/[id number] UlcerReasonOnset HumdHzzkcjunZizrwgzujsqr64/15/2024ReasonCommentsFollow-upHivesWaist up hives and itchyReasonCommentsMed RefillReasonCommentsFollow-upCheck upItchy from waist up ReasonCommentsFollow-upCheck upReasonOnset DateCommentsMed Wvqjjj6211/01/2024 Ordered Prescriptions (unrec ognized section and content) PrescriptionSigDispensedRefillsStart DateEnd Date ferrous sulfate (IRON 325) 325 (65 Fe) MG tablet Take 1 tablet by mouth daily (with breakfast) 90 tablet Gauze Pads & Dressings (KERLIX GAUZE ROLL MEDIUM) MISC 2 each by Does not apply route daily 96 each CMC-Calcium Alginate-Silver (TEGADERM ALGINATE AG DRESSING) 4 X 5 PADS Apply 1 each topically daily Right ankle and foot open wounds. Then cover with Kerlex and Olga 25 each clindamycin (CLEOCIN) 300 MG capsule Take 1 capsule by mouth 3 times daily for 10 days 30 capsule Multiple Vitamin (MULTIVITAMIN) TABS tablet Take 1 tablet by mouth daily 30 tablet amLODIPine (NORVASC) 10 MG tablet Take 1 tablet by mouth daily 30 tablet citalopram (CELEXA) 40 MG tablet Take 1 tablet by mouth daily 30 tablet atenolol (TENORMIN) 100 MG tablet Take 1 tablet by mouth daily 30 tablet sodium hypochlorite (DAKINS) 0.125 % SOLN external solution Apply topically daily Use on the Curlex gauze dressings changed once daily on the sacrococcygeal wound and buttock wounds 473 mL Scheduled Active and Recently Administ ered Medications (unrecognized section and content) Medication Order// amLODIPine (NORVASC) tablet 10 mg 10 mg, Oral, DAILY, First dose on Wed06/23/22 at 0900, Until Discontinued * 0907 (Given - Provider: Heri Valdez RN) * 0723 (Given - Provider: Heri Valdez RN) * 0812 (MAY Hold - Provider: Cammy Autohold - Reason: Unreviewed Transfer Orders) * 0900 (Automatically Held - Provider: Cammy Kinghold) * 0959 ([facility] Unhold - Provider: Dragan Voss RN) * 1234 (Given - Provider: Linh Chan) atenolol (TENORMIN) tablet 100 mg 100 mg, Oral, DAILY, First dose on Wed06/23/22 at 0900, Until Discontinued * 0907 (Given - Provider: Heri Valdez RN) * 0723 (Given - Provider: Heri Valdez RN) * 0812 (MAR Hold - Provider: Cammy Autohold - Reason: Unreviewed Transfer Orders) * 0900 (Automatically Held - Provider: Cammy Autohold) * 0959 ([facility] Unhold - Provider: Dragan Voss RN) * 1233 (Given - Provider: Junegeoff) citalopram (CELEXA) tablet 40 mg 40 mg, Oral, DAILY, First dose on Wed06/23/22 at 0900, Until Discontinued * 0907 (Given - Provider: Heri Valdez RN) * 0723 (Given - Provider: Heri Valdez RN) * 0812 (MAR Hold - Provider: [facility] Aut[facility] - Reason: Unreviewed Transfer Orders) * 0900 (Automatically Held - Provider: Cammy Autohold) * 0959 (MAR Unhold - Provider: Dragan Voss, RENETTA) * 1235 (Given - Provider: Junegeoff) clindamycin (CLEOCIN) 600 mg in dextrose 5 % 50 mL IVPB 600 mg, IntraVENous, EVERY 8 HOURS, 21 doses, First dose on Wed06/23/22 at 1630, Last dose on Wed06/30/22 at 1245, Antimicrobial Indications: Skin and Soft Tissue Infection, Skin duration of therapy: 7 days * 0000 (New Bag - Provider: Geneva Samayoa RN) * 0030 (Stopped - Provider: Geneva Samayoa RN) * 0906 (New Bag - Provider: Heri Valdez RN) * 1005 (Stopped - Provider: Heri Valdez RN) * 1633 (New Bag - Provider: Heri Valdez RN) * 1703 (Stopped - Provider: Geneva Samayoa, RENETTA) * 0021 (New Bag - Provider: Geneva Samayoa, RENETTA) * 0051 (Stopped - Provider: Geneva Samayoa, RENETTA) * 0825 (New Bag - Provider: Sylvia Chao) * 0922 (Stopped - Provider: Heri Valdez RN) * 1619 (New Bag - Provider: Heri Valdez, RENETTA) * 1715 (Stopped - Provider: Heri Valdez, RENETTA) * 0101 (New Bag - Provider: Panchito Crockett, RN) * 0131 (Stopped - Provider: Panchito Crockett RN) * 0812 (MAR Hold - Provider: Cammy Autohold - Reason: Unreviewed Transfer Orders) * 0830 (Automatically Held - Provider: Cammy Autohold) * 0959 ([facility] Unhold - Provider: Dragan Voss RN) * 1245 (New Bag - Provider: Junegeoff) * 1320 (Stopped - Provider: Linh Chan) * 2045 (Due - Provider: Linda Ibrahim [facility]) fenofibrate (TRIGLIDE) tablet 160 mg 160 mg, Oral, DAILY, First dose on Wed06/23/22 at 0900, Until Discontinued, Substituted for Fenofibrate (Non-Formulary Dose). * 0907 (Given - Provider: Heri Valdez RN) * 0724 (Given - Provider: Heri Valdez RN) * 0812 (MAR Hold - Provider: Cammy Autohold - Reason: Unreviewed Transfer Orders) * 0900 (Automatically Held - Provider: Cammy Autohold) * 0959 ([facility] Unhold - Provider: Dragan Voss RN) * 1235 (Given - Provider: Juneleif) gentamicin (GARAMYCIN) 250 mg in sterile water for irrigation 250 mL irrigation (COMPLETED) 250 mg, Irrigation, ONCE, On Wed06/25/22 at 0830, For 1 dose * 1234 (Given by Other Clinician - Provider: Heri Valdez RN - Comment: Dr. Min used solutionbedside.) heparin (porcine) injection 5,000 Units 5,000 Units, SubCUTAneous, EVERY 8 HOURS SCHEDULED (3 times per day), First dose on Wed06/22/22 at 2200, Until Discontinued * 0911 (Not Given - Provider: Heri Valdez RN - Reason: Contraindicated) * 1512 (Held by provider - Provider: ESTELLE Katz CNP - Reason: Other) * 1600 (Automatically Held - Provider: ESTELLE Katz CNP) * 0000 (Automatically Held - Provider: ESTELLE Katz CNP) * 0800 (Automatically Held - Provider: ESTELLE Katz CNP) * 1600 (Automatically Held - Provider: ESTELLE Katz CNP) * 0000 (Automatically Held - Provider: ESTELLE Katz CNP) * 0800 (Automatically Held - Provider: ESTELLE Katz CNP) * 1600 (Automatically Held - Provider: ESTELLE Katz CNP) multivitamin 1 tablet 1 tablet, Oral, DAILY, First dose on Wed06/25/22 at 0900, Until Discontinued * 0724 (Given - Provider: Heri Valdez RN) * 0812 ([facility] Hold - Provider: Cammy Autohold - Reason: Unreviewed Transfer Orders) * 0900 (Automatically Held - Provider: Cammy Autohold) * 0959 ([facility] Unhold - Provider: Dragan Voss RN) * 1235 (Given - Provider: Linh Rocio) polyethylene glycol (GoLYTELY) solution 4,000 mL (COMPLETED) [...] is 1.2 to 1.8 liters per hour. * 1734 (Given - Provider: Heri Valdez RN) sodium chloride flush 0.9 % injection 10 mL 10 mL, IntraVENous, EVERY 12 HOURS SCHEDULED (2 times per day), First dose on Wed06/22/22 at 2100, Until Discontinued * 1619 (Not Given - Provider: Heri Valdez RN - Reason: IV Fluid Infusing) * 2021 (Not Given - Provider: Geneva Samayoa RN - Reason: IV Fluid Infusing) * 0726 (Not Given - Provider: Heri Valdez RN - Reason: IV Fluid Infusing) * 2247 (Not Given - Provider: Panchito Crockett RN - Reason: IV Fluid Infusing) * 0812 ([facility] Hold - Provider: Cammy Autohold - Reason: Unreviewed Transfer Orders) * 0900 (Automatically Held - Provider: Cammy Autohold) * 0959 ([facility] Unhold - Provider: Dragan Voss RN) * 2100 (Due) sodium hypochlorite (DAKINS) 0.125 % external solution Irrigation, DAILY, First dose on Wed06/23/22 at 1930, Use on the Curlex gauze dressings changed once that shift on the sacrococcygeal wound and buttock wounds * 1618 (Given - Provider: Heri Valdez RN - Comment: bottle already in room) * 1127 (Given - Provider: Heri Valdez RN) * 0812 (MAR Hold - Provider: [facility] - Reason: Unreviewed Transfer Orders) * 0900 (Automatically Held - Provider: Cammy Autohold) * 0959 ([facility] Unhold - Provider: Dragan Voss RN) Medication Order06/24/// 0.9 % sodium chloride infusion IntraVENous, at 75 mL/hr, CONTINUOUS, Starting on Wed06/22/22 at 2045 * 0020 (New Bag - Provider: Geneva Samayoa RN) * 0812 (MAR Hold - Provider: [facility] - Reason: Unreviewed Transfer Orders) * 0959 ([facility] Unhold - Provider: Dragan Voss RN) * 1340 (New Bag - Provider: Linh Chan) * 1622 (Stopped - Provider: Mel Schilling RN) Medication Order06/24/// 0.9 % sodium chloride infusion IntraVENous, at [...] or less into rate field of order. * 0812 ([facility] Hold - Provider: [facility] - Reason: Unreviewed Transfer Orders) * 0959 ([facility] Unhold - Provider: Dragan Voss RN) 0.9 % sodium chloride infusion IntraVENous, at 240 mL/hr, Administer over 10 Minutes, PRN, blood administration, Starting on Wed06/24/22 at 0733, For 1 dose, For use in priming line prior to transfusion (prime via gravity) and flush line post transfusion ONLY. Discontinue once line has been cleared of remaining blood product. * 0812 ([facility] Hold - Provider: [facility] [employer] - Reason: Unreviewed Transfer Orders) * 0959 ([facility] Unhold - Provider: Dragan Voss RN) acetaminophen (TYLENOL) suppository 650 mg(Linked Group 1) 650 mg, Rectal, EVERY 6 HOURS PRN, Starting on Wed06/22/22 at 2017, Until Discontinued, Pain Mild (1-3), Fever, For temp greater than 100.4 F (38 C), Administer if oral route cannot be used. * 0812 ([facility] Hold - Provider: [facility] - Reason: Unreviewed Transfer Orders) * 0959 ([facility] Unhold - Provider: Dragan Voss RN) acetaminophen (TYLENOL) tablet 650 mg(Linked Group 1) 650 mg, Oral, EVERY 6 HOURS PRN, Starting on Wed06/22/22 at 2017, Until Discontinued, Pain Mild (1-3), Fever, For temp greater than 100.4 F (38 C), Maximum dose of acetaminophen is 4000 mg from all sources in 24 hours. * 0812 ([facility] Hold - Provider: [facility] [employer] - Reason: Unreviewed Transfer Orders) * 0959 ([facility] Unhold - Provider: Dragan Voss RN) ondansetron (ZOFRAN) injection 4 mg(Linked Group 2) 4 mg, IntraVENous, EVERY 6 HOURS PRN, Starting on Wed06/22/22 at 2017, Until Discontinued, Nausea, Vomiting, Administer if oral route cannot be used. * 0812 ([facility] Hold - Provider: [facility] [employer] - Reason: Unreviewed Transfer Orders) * 0959 ([facility] Unhold - Provider: Dragan Voss RN) ondansetron (ZOFRAN-ODT) disintegrating tablet 4 mg(Linked Group 2) 4 mg, Oral, EVERY 8 HOURS PRN, Starting on Wed06/22/22 at 2017, Until Discontinued, Nausea, Vomiting * 0812 ([facility] Hold - Provider: [facility] [employer] - Reason: Unreviewed Transfer Orders) * 0959 ([facility] Unhold - Provider: Dragan Voss RN) polyethylene glycol (GLYCOLAX) packet 17 g 17 g, Oral, DAILY PRN, Starting on Wed06/22/22 at 2017, Until Discontinued, Constipation, First line therapy for constipation * 0812 ([facility] Hold - Provider: [facility] Autoh[employer] - Reason: Unreviewed Transfer Orders) * 0959 ([facility] Unhold - Provider: Dragan Voss RN) sodium chloride flush 0.9 % injection 10 mL 10 mL, IntraVENous, PRN, Starting on Wed06/22/22 at 2017, Until Discontinued, Line Care, After every IV line use * 0812 (MAY Hold - Provider: Cammy Autohold - Reason: Unreviewed Transfer Orders) * 0959 ([facility] Unhold - Provider: Dragan Voss RN) Order Group 1: acetaminophen (TYLENOL) tablet 650 [...] BE BASED ON THE PRIMARY CLINICAL RECORDS. [employer] [facility]. provides no warranty or guarantee of the accuracy or completeness of information in this document.
== END 2025-02-07 11:18 | disposition home or self-care (01) ==
LOC: WC 11:17
PROVIDERS: PCP Family Medicine; Visit Provider Physician Assistant
DX: L97.813 Non-pressure chronic ulcer of other part of right lower leg with necrosis of muscle (principal); L89.520 Pressure ulcer of left ankle, unstageable
CPT/HCPCS: G0463

== ENCOUNTER 2025-02-09 11:39 | Outpatient (OUT) | payer BC, MEDICARE, SELFPAY ==
--- OUTSIDE RECORDS SUMMARY | 2024-05-11 08:15 | XMS_ITS ---
Author Organization The [facility] in [place] Address [address] [place] [address] Care Team Providers Care Kerfer Machine Operator Name Role Phone Fidel Reis MD Primary Care Provider Unavailab Nina Griffin Unavailable [phone] REASON FOR VISIT MD Encounters Encounter Location Date Provider Diagnosis [facility] Oncology [address] [place] [address] 05/11/2024 Nina River Plan Of Treatment Next Appt Details Provider Name:NINA RIVER , 03/13/2025 10:30:00 AM, [address] [place], [address], Progress Notes * Ganga MIRANDA LDOB:1960 (64 yo M)Acc No.[id number]:05/11/2024 UNLOCKED PROGRESS NOTE Progress Notes Patient: Sameer LOPEZrey Cristina :?Nina River M.D.:1960???Age:63 Y ???Sex:MaleDate:05/11/2024Phone:[phone]:[address], [place], [place]Eqe:Fidel Reis MD Subjective: * Chief Complaints: * 1 . MD. * Medical History: Objective: * Vitals: Assessment: Plan: * Treatment: * * Electronic signature of Nina River MD, [id number] on 02/09/2025 at 11:43 AM ESTSign off status: PendingVisit Status:?CANC (Cancelled) * Provider: Geoff River M.D. Date: 0 05/11/2024 Generated for Printing/Faxing/eTransmitting on:?02/09/2025 11:43 AM EST
--- OUTSIDE RECORDS SUMMARY | 2024-05-16 06:00 | XMS_ITS ---
Author Organization The [facility] in [place] Address [address] [place] [address] Care Team Providers Care Office Coordinator Name Role Phone Fidel Reis MD Primary Care Provider Unavailab Nina Griffin Unavailable [phone] REASON FOR VISIT MD Encounters Encounter Location Date Provider Diagnosis [facility] Oncology [address] [place] [address] 05/16/2024 Nina River Plan Of Treatment Next Appt Details Provider Name:NINA RIVER , 03/13/2025 10:30:00 AM, [address] [place], [address], Progress Notes * Ganga MIRANDA LDOB:1960 (64 yo M)Acc No.[id number]:05/16/2024 UNLOCKED PROGRESS NOTE Progress Notes Patient: Geoff CERVANTSE Ganga Cristina :?Nina River M.D.:1960???Age:63 Y ???Sex:MaleDate:05/16/2024Phone:[phone]:[address], [place], [place]Ags:Fidel Reis MD Subjective: * Chief Complaints: * 1 . MD. * Medical History: Objective: * Vitals: Assessment: Plan: * Treatment: * * Electronic signature of Nina River MD, [id number] on 02/09/2025 at 11:42 AM ESTSign off status: PendingVisit Status:?CANC (Cancelled) * Provider: Geoff River M.D. Date: 0 05/16/2024 Generated for Printing/Faxing/eTransmitting on:?02/09/2025 11:42 AM EST
--- OUTSIDE RECORDS SUMMARY | 2024-05-30 06:15 | XMS_ITS ---
Author Organization The [facility] in [place] Address [address] [place] [address] Care Team Providers Care Emr Trainer Name Role Phone Fidel Reis MD Primary Care Provider Unavailab Nina Griffin Unavailable [phone] REASON FOR VISIT MD Encounters Encounter Location Date Provider Diagnosis [facility] Oncology [address] [place] [address] 05/30/2024 Nina River Plan Of Treatment Next Appt Details Provider Name:NINA RIVER , 03/13/2025 10:30:00 AM, [address] [place], [address], Progress Notes * Ganga MIRANDA LDOB:1960 (64 yo M)Acc No.[id number]:05/30/2024 UNLOCKED PROGRESS NOTE Progress Notes Patient: Geoff CERVANTES Ganga Cristina :?Nina River M.D.:1960???Age:63 Y ???Sex:MaleDate:05/30/2024Phone:[phone]:[address], [place], [place]Txo:Fidel Reis MD Subjective: * Chief Complaints: * 1 . MD. * Medical History: Objective: * Vitals: Assessment: Plan: * Treatment: * * Electronic signature of Nina iRver MD, [id number] on 02/09/2025 at 11:44 AM ESTSign off status: PendingVisit Status:?VOICEMSG (Voice) * Provider: Geoff River M.D. Date: 0 05/30/2024 Generated for Printing/Faxing/eTransmitting on:?02/09/2025 11:44 AM EST
--- OUTSIDE RECORDS SUMMARY | 2024-08-01 08:00 | XMS_ITS ---
Author Organization [facility] in [place] Address [address] [place] [address] Care Team Providers Care Investment Banking Associate Name Role Phone Fidel Reis MD Primary Care Provider Unavailab Nina Griffin Unavailable [phone] REASON FOR VISIT MD Encounters Encounter Location Date Provider Diagnosis [facility] [address] [place] [phone] 08/01/2024 Nina River Plan Of Treatment Next Appt Details Provider Name:NINA RIVER , 03/13/2025 10:30:00 AM, [address] [place], [address], Progress Notes * Ganga MIRANDA LDOB:1960 (64 yo M)Acc No.[id number]:08/01/2024 UNLOCKED PROGRESS NOTE Progress Notes Patient: Geoff CERVANTES Ganga Cristina :?Nina River M.D.:1960???Age:64 Y ???Sex:MaleDate:08/01/2024Phone:[phone]:[address], [place], [id number]:Fidel Reis MD Subjective: * Chief Complaints: * 1 . MD. * Medical History: Objective: * Vitals: Assessment: Plan: * Treatment: * * Electronic signature of Nina River MD, [id number] on 02/09/2025 at 11:45 AM ESTSign off status: PendingVisit Status:?CANC (Cancelled) * Provider: Geoff River M.D. Date: 0 08/01/2024 Generated for Printing/Faxing/eTransmitting on:?02/09/2025 11:45 AM EST
--- OUTSIDE RECORDS SUMMARY | 2024-08-15 05:15 | XMS_ITS ---
Author Organization [facility] in [place] Address [address] [place] [address] Care Team Providers Care Sales Representative Womens Health Name Role Phone Fidel Reis MD Primary Care Provider Unavailab Nina Griffin Unavailable [phone] REASON FOR VISIT MD Encounters Encounter Location Date Provider Diagnosis [facility] [address] [place] [address] 08/15/2024 Nina River Plan Of Treatment Next Appt Details Provider Name:NINA RIVER , 03/13/2025 10:30:00 AM, [address] [place], [address], Progress Notes * Ganga MIRANDA LDOB:1960 (64 yo M)Acc No.[id number]:08/15/2024 UNLOCKED PROGRESS NOTE Progress Notes Patient: Sameer LOPEZrey Cristina :?Nina River M.D.:1960???Age:64 Y ???Sex:MaleDate:08/15/2024Phone:[phone]:[address], [place], [place]Zwf:Fidel Reis MD Subjective: * Chief Complaints: * 1 . MD. * Medical History: Objective: * Vitals: Assessment: Plan: * Treatment: * * Electronic signature of Nina River MD, [id number] on 02/09/2025 at 11:43 AM ESTSign off status: PendingVisit Status:?CANC (Cancelled) * Provider: Geoff River M.D. Date: 0 08/15/2024 Generated for Printing/Faxing/eTransmitting on:?02/09/2025 11:43 AM EST
--- OUTSIDE RECORDS SUMMARY | 2024-08-29 05:30 | XMS_ITS ---
Author Organization [facility] in [place] Address [address] [place] [address] Care Team Providers Care Assembly Operator Name Role Phone Fidel Reis MD Primary Care Provider Unavailab Nina Griffin Unavailable [phone] REASON FOR VISIT MD Encounters Encounter Location Date Provider Diagnosis The [facility] [address] [place] [address] 08/29/2024 Nina River Plan Of Treatment Next Appt Details Provider Name:NINA RIVER , 03/13/2025 10:30:00 AM, [address] [place], [address], Progress Notes * Ganga MIRANDA LDOB:1960 (64 yo M)Acc No.[id number]:08/29/2024 UNLOCKED PROGRESS NOTE Progress Notes Patient: Geoff CERVANTES Ganga Cristina :?Nina River M.D.:1960???Age:64 Y ???Sex:MaleDate:08/29/2024Phone:[phone]:[address], [place], [place]Trn:Fidel Reis MD Subjective: * Chief Complaints: * 1 . MD. * Medical History: Objective: * Vitals: Assessment: Plan: * Treatment: * * Electronic signature of Nina River MD, [id number] on 02/09/2025 at 11:44 AM ESTSign off status: PendingVisit Status:?CANC (Cancelled) * Provider: Geoff River M.D. Date: 0 08/29/2024 Generated for Printing/Faxing/eTransmitting on:?02/09/2025 11:44 AM EST
--- OUTSIDE RECORDS SUMMARY | 2024-09-26 06:45 | XMS_ITS ---
Author Organization The [facility] in [place] Address [address] [place] [address] Care Team Providers Care Flash Oven Operator Name Role Phone Fidel Reis MD Primary Care Provider Unavailab Nina Griffin Unavailable [phone] REASON FOR VISIT MD Encounters Encounter Location Date Provider Diagnosis [facility] On[facility] [address] [place] [address] 09/26/2024 Nina River Plan Of Treatment Next Appt Details Provider Name:NINA RIVER , 03/13/2025 10:30:00 AM, [address] [place], [address], Progress Notes * Ganga MIRANDA LDOB:1960 (64 yo M)Acc No.[id number]:09/26/2024 UNLOCKED PROGRESS NOTE Progress Notes Patient: Geoff CERVANTESGanga :?Nina River M.D.:1960???Age:64 Y ???Sex:MaleDate:09/26/2024Phone:[phone]:[address], [place], [place]Ntm:Fidel Reis MD Subjective: * Chief Complaints: * 1 . MD. * Medical History: Objective: * Vitals: Assessment: Plan: * Treatment: * * Electronic signature of Nina River MD, [id number] on 02/09/2025 at 11:44 AM ESTSign off status: PendingVisit Status:?VOICEMSG (Voice) * Provider: Geoff River M.D. Date: 0 09/26/2024 Generated for Printing/Faxing/eTransmitting on:?02/09/2025 11:44 AM EST
--- OUTSIDE RECORDS SUMMARY | 2024-09-26 07:15 | XMS_ITS ---
Author Organization The [facility] in [place] Address [address] [place] [address] Care Team Providers Care Cnc Supervisor Name Role Phone Smiley NAZARIO, Fidel Primary Care Provider Unavailab Nina Griffin Unavailable [phone] REASON FOR VISIT CL1.5 Encounters Encounter Location Date Provider Diagnosis [facility] On[facility] [address] [place] [address] 09/26/2024 Nina River Plan Of Treatment Next Appt Details Provider Name:NINA RIVER , 03/13/2025 10:30:00 AM, [address] [place], [address], Progress Notes * Ganga MIRANDA LDOB:1960 (64 yo M)Acc No.[id number]:09/26/2024 UNLOCKED PROGRESS NOTE Progress Note Patient: Geoff CERVANTES Ganga Evans :?Nina River M.D.:1960???Age:64 Y ???Sex:MaleDate:09/26/2024Phone:[phone]:[address], [address], [place], [place]Bpb:Fidel Reis MD Subjective: * Chief Complaints: * 1 . CL1.5. * Medical History: Objective: * Vitals: Assessment: Plan: * Treatment: * * Electronic signature of Nina River MD, [id number] on 02/09/2025 at 11:43 AM ESTSign off status: PendingVisit Status:?PEN (Pending) * Provider: Geoff River M.D. Date: 09/26/2024 Generated for Printing/Faxing/eTransmitting on:?02/09/2025 11:43 AM EST
--- OUTSIDE RECORDS SUMMARY | 2024-11-28 06:15 | XMS_ITS ---
Author Organization The [facility] in [place] Address [address] [place] [address] Care Team Providers Care Supervisor Core Shop Name Role Phone Fidel Reis MD Primary Care Provider Unavailab Nina Griffin Unavailable [phone] REASON FOR VISIT MD Encounters Encounter Location Date Provider Diagnosis [facility] [address] [place] [address] 11/28/2024 Nina River Plan Of Treatment Next Appt Details Provider Name:NINA RIVER , 03/13/2025 10:30:00 AM, [address] [place], [address], Progress Notes * Ganga MIRANDA LDOB:1960 (64 yo M)Acc No.[id number]:11/28/2024 UNLOCKED PROGRESS NOTE Progress Notes Patient: Geoff CERVANTES Ganga Evans :?Nina River M.D.:1960???Age:64 Y ???Sex:MaleDate:11/28/2024Phone:[phone]:[address], [place], [id number]:Fidel Reis MD Subjective: * Chief Complaints: * 1 . MD. * Medical History: Objective: * Vitals: Assessment: Plan: * Treatment: * * Electronic signature of Nina River MD, [id number] on 02/09/2025 at 11:45 AM ESTSign off status: PendingVisit Status:?CONFPHONE (Voice) * Provider: Geoff River M.D. Date: 0 11/28/2024 Generated for Printing/Faxing/eTransmitting on:?02/09/2025 11:45 AM EST
--- OUTSIDE RECORDS SUMMARY | 2025-02-09 11:43 | XMS_ITS | Clinical Summary ---
Author Organization [facility] Healthcare Address [address] [place] [address] Care Team Providers Care Insurance Examiner Name Role Phone Fidel Reis MD Primary Care Provider [phone] Allergies Active AllergyReactionsCriticalityNoted JpcjFfvcgvhhFbwcfhoftmzv99/28/2023 Other Reaction(s): Kidney pain VancomycinOther,Axfkrge1106/21/2015 NEPHROTOXICITY States had kidney issues after taking Medications MedicationSigDispense QuantityRefillsLast FilledStart DateEnd DateStatus oxybutynin XL (Ditropan-XL) 15 MG 24 hr tablet Indications:Incontinence overflow, urineTake 1 tablet (15 mg) by mouth Daily 30 tablet 11005/01/4126776Active atenolol (Tenormin) 100 MG tablet Indications:Benign hypertensionTake [...] (07/31/2024 11:20 AM EDT): Weight loss indicated. Mwgcmllfw98/24/2024 Assessment & Plan (01/20/2024 12:25 PM EDT): Unclear cause of hives. Treat with prednisone and use hydroxyzine PRN. Encounter for long-term (current) use of oqwlxrdaiks69/22/2024enign nuqiqypvabyr07/09/2024 Assessment & Plan (07/31/2024 11:18 AM EDT): BP controlled and monitor PRN. Assessment & Plan (04/06/2023 10:47 AM EST): BP controlled and monitor PRN. Cauda equina jswrgkly04/09/2024 Assessment & Plan (11/18/2023 2:11 PM EDT): Patient stable Jktgsympgu45/09/2024hronic superficial rtgomwhkp68/09/2024 Assessment & Plan (07/31/2024 11:18 AM EDT): Symptoms controlled with medication and continue. Assessment & Plan (04/06/2023 10:47 AM EST): Symptoms controlled with medication and continue. Eczema, xmsielfswqm93/09/2024Major depressive disorder, recurrent episode, mild 04/06/2023 Assessment [...] with hyperglycemia, without long-term current use of kivncin4204/06/2023 Assessment & Plan (07/31/2024 11:18 AM EDT): Reports BS stable and due for A1C. Stick to ADA diet and limit carbs. Assessment & Plan (04/06/2023 10:48 AM EST): Reports BS stable and due for A1C. Stick to ADA diet and limit carbs. Pfxzuoaufdek62/09/2024hronic kidney disease, stage 3a04/06/2023 Resolved Problems ProblemNoted DateDiagnosed DateResolved EcqsOnngoevw49 Assessment & Plan (11/18/2023 2:11 PM EDT): C/o itching and try hydroxyzine. Encounters DateTypeDepartmentCare IevkXgjvmylxzsi30/27/2025Refill [facility] [address] [place] [address] Fidel Reis MD Primary hypertension [...] week10/17/2023How often do you attend druze or jew services?Patient cavqxuxs85/21/2024o you belong to any clubs or organizations such as druze groups, unions, [employer] or athletic groups, or school groups?No 10/17/2023How often do you attend meetings of the clubs or organizations you belong to?Never10/17/2023re you , , , , never , or living with a partner?Gjimgcu1510/17/2023UDIT-CAnswerDate RecordedQ1: How often do you have a [...] housing, medical care, and heating?Not hard at all10/17/2023[facility] [place] [facility] - Occupational Stress QuestionnaireAnswerDate RecordedDo you feel stress - tense, restless, nervous, or anxious, or unable to sleep at night because yourmind is troubled all the time - these days?Patient declined 10/17/2023Exercise Vital SignAnswerDate RecordedOn average, how many days per week do you engage in moderate to strenuous exercise (like a brisk walk)?Patient ymhlxzft39/21/2024On average, how many minutes do you engage in exercise at this level?Patient /21/2024Hunger Vital SignAnswerDate RecordedWithin the past 12 months, [...] were you homeless or living in a long term (including now)?No10/17/2023Sex and Gender InformationValueDate RecordedSex Assigned at BirthNot on fileLegal LfrAerw2306/10/2022 7:28 PM EDT Gender IdentityNot on fileSexual OrientationNot on file Last Filed Vital Signs Vital SignReadingTime TakenCommentsBlood Torneyei870/7005 10:49 AM EDT Lqtqm8054 10:49 AM LYPTpshlmarhuc31.4 ??C (97.5 ??F)07/31/2024 10:49 AM EDTRespiratory Vuij150807/31/2024 10:49 AM EDTOxygen Vwoabnlriu42%07/31/2024 10:49 AM EDTInhaled Oxygen Concentration--Ewbfol200 kg (252 lb)06/10/2023 11:15 AM EDT Trphnc135.3 cm (5' 11 )07/31/2024 10:49 AM EDTBody Mass Index36.1603 11:15 AM EDT Plan of Treatment Not on file Insurance Care Teams Team MemberRelationshipSpecialtyStart DateEnd Date Fidel Reis MD [facility]
--- OUTSIDE RECORDS SUMMARY | 2025-02-09 11:43 | XMS_ITS | Patient Health Record ---
Author Organization [facility] [place] Address [address] [place] [address] Care Team Providers Care Java Web Architect Name Role Phone Fidel Reis MD Primary Care Provider Unavailab America Griffin Unavailable [phone] Jesus Bahena Unavailable [phone] Raghavendra Martins Unavailable [phone] Allergies Allergen (clinical drug ingredient) Drug/Non Drug Allergy documented on EMR Reaction Allergy Type Onset Date Status vancomycin Vancomycin Renal failure Drug Allergy Active Results Component Value Reference Range Notes CRP (Not yet reviewed by pro vider) Interpretation: Performing Lab: Notes/Report: [facility] , C Reactive Protein 15.33 <=0.50 mg/dL Performing Lab:see note - [facility] LBFERRITIN (Not yet reviewed by provider) Interpretation: Performing Lab: Notes/Report: [facility] ,Pammomnj023.026.0-388.0 ng/mLPerforming Lab:see note - [facility] LBIRON AND TIBC (Not yet reviewed by provider) Interpretation: Performing Lab: Notes/Report: [facility] ,Iron28.065.0-175.0 ug/dLTotal Iron Binding Sdqempkz198.0250.0-450.0 ug/dL Percent Iron Ncxqvqwqur12.6Performing Lab:see note - [facility] LB Erythrocyte Sedimentation Rate (Not yet reviewed by provider) Interpretation: Performing Lab: Notes/Report: [facility] ,Erythrocyte Sedimentation Rate67<=20 mm/hrPerforming Lab:see note - [facility] LBVitamin B12 (Not yet reviewed by provider) Interpretation: Performing Lab: Notes/Report: [facility] ,Vitamin C964112387-0239 pg/mL Performed at: - [facility] [address] [id number] Climate Change Risk Assessor: Tejinder Wheeler PhD, Phone: [phone] Performing Lab:see note - [facility] LBVC SEGMENTAL PRESSURES (Not yet reviewed by provider) Interpretation: Performing Lab: Notes/Report: Source Facility: [place] [address] Vein Report Signed Patient: JOEL STINSON MR#: [id number] : 1960 Acct:[id number] Age/Sex: 63 / M ADM Date: 03/06/24 Loc: VC Attending Dr: Jesus Bahena D.P.M. Ordering Physician: Jesus Bahena D.P.M. Date of Service: 03/06/24 Procedure(s): VC SEGMENTAL PRESSURES Accession Number(s): [id number] cc: Jesus Bahena D.P.M.; Fidel Reis M.D. [place] [address] Patient Name: JOEL STINSON MRN: [id number] date: 1960 Sex: M Assigned Patient Location: Current Patient Location: Accession/Order Number: [id number] Exam Date: 03/06/2024 11:00 Report Date: 03/06/2024 [...] Wright M.D. Signed By: 03/06/24 1416 DD/ 141 TD/TT: [employer]:CBC AUTO DIFF (Not yet reviewed by provider) Interpretation: Performing Lab: Notes/Report: [facility] ,White Blood Count13.24.0-11.0 10 3/uLRed Blood Count3.254.70-6.10 10 6/uL Hemoglobin8.114.0-18.0 g/tSNprccjvrws60.942.0-54.0 %Mean Corpuscular Njtbtd48.8 80.0-94.0 fLMean Corpuscular Nlqsvnqnnl25.925.9-34.0 pgMean Corpuscular HGB Conc 30.129.9-35.2 g/dLRed Cell Distribution Width14.011.0-15.0 %Platelet Smhgw586 150-450 10 3/uLMean Platelet Volume8.99.5-13.5 fLNeutrophils Percent Auto70.2 43.0-75.0 %Lymphocytes Percent Auto12.220.5-60.0 %Monocytes Percent Auto7.31.7- 12.0 %Eosinophils Percent Auto8.80.9-7.0 %Basophils Percent Auto0.60.2-2.0 % Immature Granulocytes Pct Auto0.90.0-0.5 %Neutrophils Absolute Auto9.31.4-6.5 10 3/uLLymphocytes Absolute Auto1.61.2-3.8 10 3/uLMonocytes Absolute Auto1.00.3-0.8 10 3/uLEosinophils Absolute Auto1.20.0-0.7 10 3/uLBasophils Absolute Auto0.10.0- 0.1 10 3/uLImmature Granulocytes Abs Auto0.120.00-0.03 10 3/uLPerforming Lab:see noteML - [facility] LBECG 12 lead (Not yet reviewed by provider) Interpretation: Performing Lab: Notes/Report: Source Facility: [facility]-[address] [place] [address] [place] [address] Electrocardiograph Report Signed Patient: JOEL STINSON MR#: [id number] : 1960 Acct:[id number] Age/Sex: 63 / M ADM Date: 03/10/24 Loc: PST Attending Dr: Jesus Bahena D.P.M. Ordering Physician: Jesus Bahena D.P.M. Date of Service: 03/10/24 Procedure(s): ECG 12 lead Accession Number(s): [id number] cc: [facility] Test Date: 2024-03-10 Pat Name: JOEL STINSON Department: Room: - Gender: Male [employer] Press Set Up Operator: : 1960 Requested By: JESUS BAHENA Order Number: [id number] Reading MD: AVELINO ORTEGA Measurements Intervals [place] Rate: 53 P: 86 NM: 179 QRS: 8 QRSD: 110 T: 34 QT: 451 QTc: 425 Interpretive Statements SINUS BRADYCARDIA Compared to ECG 11/25/2022 10:12:24 Sinus rhythm no longer present Electronically Signed On 03-10-2024 17:24:37 EST by AVELINO ORTEGA Dictated By: Avelino Ortega D.O. Signed By: 03/10/24 1724 DD/ 1037 TD/TT: [employer]:FERRITIN (Not yet reviewed by provider) Interpretation: Performing Lab: Notes/Report: [facility] ,Whcmojbc523.026.0-388.0 ng/mLPerforming Lab:see noteML - [facility] LBCBC AUTO DIFF (Not yet reviewed by provider) Interpretation: Performing Lab: Notes/Report: [facility] ,White Blood Count12.24.0-11.0 10 3/uLRed Blood Count2.714.70-6.10 10 6/uL Hemoglobin6.714.0-18.0 g/dLRESULTS CALLED TO ANGELICA RUBALCAVA RN at 1047Hematocrit 22.442.0-54.0 %RESULTS CALLED TO ANGELICA RUBALCAVA RN at 1047Mean Corpuscular Volume 82.780.0-94.0 fLMean Corpuscular Tmdolzjede97.725.9-34.0 pgMean Corpuscular HGB Conc29.929.9-35.2 g/dLRed Cell Distribution Width15.511.0-15.0 %Platelet Count 412469-064 10 3/uLMean Platelet Volume9.09.5-13.5 fLNeutrophils Percent Auto72.6 43.0-75.0 %Lymphocytes Percent Auto12.920.5-60.0 %Monocytes Percent Auto8.41.7- 12.0 %Eosinophils Percent Auto5.50.9-7.0 %Basophils Percent Auto0.30.2-2.0 % Immature Granulocytes Pct Auto0.30.0-0.5 %Neutrophils Absolute Auto8.91.4-6.5 10 3/uLLymphocytes Absolute Auto1.61.2-3.8 10 3/uLMonocytes Absolute Auto1.00.3-0.8 10 3/uLEosinophils Absolute Auto0.70.0-0.7 10 3/uLBasophils Absolute Auto0.00.0- 0.1 10 3/uLImmature Granulocytes Abs Auto0.040.00-0.03 10 3/uLPerforming Lab:see noteML - [facility] LBFERRITIN (Not yet reviewed by provider) Interpretation: Performing Lab: Notes/Report: [facility] ,Xbmrjpij502.026.0-388.0 ng/mLPerforming Lab:see note - [facility] LBIRON AND TIBC (Not yet reviewed by provider) Interpretation: Performing Lab: Notes/Report: [facility] ,Iron18.065.0-175.0 ug/dLTotal Iron Binding Afupggnc097.0250.0-450.0 ug/dL Percent Iron Yqvjsszgdv64.9Performing Lab:see noteML - [facility] LB CBC AUTO DIFF (Not yet reviewed by provider) Interpretation: Performing Lab: Notes/Report: [facility] ,White Blood Count12.74.0-11.0 10 3/uLRed Blood Count2.814.70-6.10 10 6/uL Hemoglobin7.414.0-18.0 g/cBEtxoeubrua78.842.0-54.0 %RESULTS CALLED TO ANGELICA RUBALCAVA RN at 1219Mean Corpuscular Brzsxm41.780.0-94.0 fLMean Corpuscular Miwizutksc87.325.9-34.0 pgMean Corpuscular HGB Conc31.129.9-35.2 g/dLRed Cell Distribution Width14.511.0-15.0 %Platelet Ezuhk975826-603 10 3/uLMean Platelet Volume8.79.5-13.5 fLNeutrophils Percent Auto69.943.0-75.0 %Lymphocytes Percent Auto12.920.5-60.0 %Monocytes Percent Auto7.21.7-12.0 %Eosinophils Percent Auto 9.00.9-7.0 %Basophils Percent Auto0.40.2-2.0 %Immature Granulocytes Pct Auto0.6 0.0-0.5 %Neutrophils Absolute Auto8.91.4-6.5 10 3/uLLymphocytes Absolute Auto1.6 1.2-3.8 10 3/uLMonocytes Absolute Auto0.90.3-0.8 10 3/uLEosinophils Absolute Auto1.20.0-0.7 10 3/uLBasophils Absolute Auto0.10.0-0.1 10 3/uLImmature Granulocytes Abs Auto0.080.00-0.03 10 3/uLPerforming Lab:see noteML - [facility] LBFERRITIN (Not yet reviewed by provider) Interpretation: Performing Lab: Notes/Report: [facility] ,Twctyvrb737.026.0-388.0 ng/mLPerforming Lab:see noteML - [facility] LBIRON AND TIBC (Not yet reviewed by provider) Interpretation: Performing Lab: Notes/Report: [facility] ,Iron28.065.0-175.0 ug/dLTotal Iron Binding Sjmrmamz084.0250.0-450.0 ug/dL Percent Iron Nmvcyjnrbb77.0Performing Lab:see noteML - [facility] LB PROF CHEM 8 (BAS METB) (Not yet reviewed by provider) Interpretation: Performing Lab: Notes/Report: [facility] ,Ymxvdc468840-116 mmol/LPotassium4.13.5-5.1 mmol/QMhwbcptm96174-754 mmol/LCarbon Aqibhjg15.521.0-32.0 mmol/LAnion Gap11.5Eyujdri13250-862 mg/dLBlood Urea Gtkfowco61.07.0-18.0 mg/dLCreatinine2.050.70-1.30 mg/dLEstimated GFR ( Njmryhn51>=60 mL/min/1.73m 2Estimated GFR (Non- Ame33>=60 mL/min/1.73m 2 BUN Creatinine Ratio12.3Scoqyxf6.98.5-10.1 mg/dLPerforming Lab:see noteML - [facility] LBCBC AUTO DIFF (Not yet reviewed by provider) Interpretation: Performing Lab: Notes/Report: [facility] ,White Blood Count12.54.0-11.0 10 3/uLRed Blood Count3.074.70-6.10 10 6/uL Hemoglobin8.014.0-18.0 g/qBJnqmdseiur05.042.0-54.0 %Mean Corpuscular Rkatmj88.4 80.0-94.0 fLMean Corpuscular Uxouvifowu26.125.9-34.0 pgMean Corpuscular HGB Conc 32.029.9-35.2 g/dLRed Cell Distribution Width13.811.0-15.0 %Platelet Gjdub866 150-450 10 3/uLMean Platelet Volume9.09.5-13.5 fLNeutrophils Percent Auto69.2 43.0-75.0 %Lymphocytes Percent Auto12.120.5-60.0 %Monocytes Percent Auto7.71.7- 12.0 %Eosinophils Percent Auto10.10.9-7.0 %Basophils Percent Auto0.50.2-2.0 % Immature Granulocytes Pct Auto0.40.0-0.5 %Neutrophils Absolute Auto8.61.4-6.5 10 3/uLLymphocytes Absolute Auto1.51.2-3.8 10 3/uLMonocytes Absolute Auto1.00.3-0.8 10 3/uLEosinophils Absolute Auto1.30.0-0.7 10 3/uLBasophils Absolute Auto0.10.0- 0.1 10 3/uLImmature Granulocytes Abs Auto0.050.00-0.03 10 3/uLPerforming Lab:see noteML - [facility] LBCRP (Not yet reviewed by provider) Interpretation: Performing Lab: Notes/Report: [facility] ,C Reactive Fmzrcgl42.73<=0.50 mg/dLPerforming Lab:see note - [facility] LBFERRITIN (Not yet reviewed by provider) Interpretation: Performing Lab: Notes/Report: [facility] ,Nmklsbim706.026.0-388.0 ng/mLPerforming Lab:see note - [facility] LBIRON AND TIBC (Not yet reviewed by provider) Interpretation: Performing Lab: Notes/Report: [facility] ,Iron24.065.0-175.0 ug/dLTotal Iron Binding Vyqkwlnc079.0250.0-450.0 ug/dL Percent Iron Krtczqmoyh12.1Performing Lab:see note - [facility] LB PROF CHEM 8 (BAS METB) (Not yet reviewed by provider) Interpretation: Performing Lab: Notes/Report: [facility] ,Hhzdti743473-822 mmol/LPotassium3.63.5-5.1 mmol/KLuujwvwc68800-818 mmol/LCarbon Bivkatt04.421.0-32.0 mmol/LAnion Gap12.6Aqfulfm40484-814 mg/dLBlood Urea Ckpjiozw23.07.0-18.0 mg/dLCreatinine1.640.70-1.30 mg/dLEstimated GFR ( Lfflags28>=60 mL/min/1.73m 2Estimated GFR (Non- Ame43>=60 mL/min/1.73m 2 BUN Creatinine Ratio13.0Gxkecxl1.38.5-10.1 mg/dLPerforming Lab:see note - [facility] LBErythrocyte Sedimentation Rate (Not yet reviewed by provider) Interpretation: Performing Lab: Notes/Report: [facility] ,Erythrocyte Sedimentation Wxxw566<=20 mm/hrPerforming Lab:see note - [facility] LBPROF 14(COMP METB) (Not yet reviewed by provider) Interpretation: Performing Lab: Notes/Report: [facility] ,Ulysld441801-513 mmol/LPotassium4.03.5-5.1 mmol/JZlbzcuhn57872-985 mmol/LCarbon Xfkaeyk85.021.0-32.0 mmol/LAnion Gap13.4Jvyofwl09738-350 mg/dLBlood Urea Ypjwklmf81.07.0-18.0 mg/dLCreatinine1.780.70-1.30 mg/dLEstimated GFR ( Tdrlwhq68>=60 mL/min/1.73m 2Estimated GFR (Non- Ame39>=60 mL/min/1.73m 2 BUN Creatinine Ratio19.9Hknrhos5.78.5-10.1 mg/dLBilirubin Total0.20.2-1.0 mg/dL Aspartate Amino Tpcnrwqnphm6503-95 U/LAlanine Jlrkdgpdthtkpeeq8880-71 U/L Alkaline Mvqtbwsybvm46355-080 U/LTotal Protein7.86.4-8.2 g/dLAlbumin Level1.7 3.4-5.0 g/dLGlobulin6.1Albumin Globulin Ratio0.3Performing Lab:see noteML - [facility] LBCBC AUTO DIFF (Not yet reviewed by provider) Interpretation: Performing Lab: Notes/Report: [facility] ,White Blood Count13.54.0-11.0 10 3/uLRed Blood Count2.784.70-6.10 10 6/uL Hemoglobin7.414.0-18.0 g/bXKwkaznpbvt77.242.0-54.0 %RESULTS CALLED TO CHEYENNE HUDSON,RNMean Corpuscular Yhyjow41.580.0-94.0 fLMean Corpuscular Aoleoyfwsq46.6 25.9-34.0 pgMean Corpuscular HGB Conc31.929.9-35.2 g/dLRed Cell Distribution Width14.311.0-15.0 %Platelet Ruitv446557-406 10 3/uLMean Platelet Volume8.89.5- 13.5 fLNeutrophils Percent Auto68.643.0-75.0 %Lymphocytes Percent Auto13.320.5- 60.0 %Monocytes Percent Auto7.81.7-12.0 %Eosinophils Percent Auto9.50.9-7.0 % Basophils Percent Auto0.30.2-2.0 %Immature Granulocytes Pct Auto0.50.0-0.5 % Neutrophils Absolute Auto9.31.4-6.5 10 3/uLLymphocytes Absolute Auto1.81.2-3.8 10 3/uLMonocytes Absolute Auto1.10.3-0.8 10 3/uLEosinophils Absolute Auto1.30.0- 0.7 10 3/uLBasophils Absolute Auto0.00.0-0.1 10 3/uLImmature Granulocytes Abs Auto0.070.00-0.03 10 3/uLPerforming Lab:see noteML - [facility] LB PROF CHEM 8 (BAS METB) (Not yet reviewed by provider) Interpretation: Performing Lab: Notes/Report: [facility] ,Ucawaa051597-671 mmol/LPotassium3.83.5-5.1 mmol/IMsaostbd02761-584 mmol/LCarbon Okpzsam40.521.0-32.0 mmol/LAnion Gap10.6Qynmomg48781-697 mg/dLBlood Urea Gztzkdus62.07.0-18.0 mg/dLCreatinine2.120.70-1.30 mg/dLEstimated GFR ( Sxoaksi82>=60 mL/min/1.73m 2Estimated GFR (Non- Ame32>=60 mL/min/1.73m 2 BUN Creatinine Ratio14.0Gdodtpm5.78.5-10.1 mg/dLPerforming Lab:see noteML - [facility] LBCBC AUTO DIFF (Not yet reviewed by provider) Interpretation: Performing Lab: Notes/Report: [facility] ,White Blood Count13.84.0-11.0 10 3/uLRed Blood Count2.814.70-6.10 10 6/uL Hemoglobin7.314.0-18.0 g/bHFtsbiujkah96.442.0-54.0 %RESULTS CALLED TO ANGELICA RUBALCAVA, RNMean Corpuscular Tvusmb53.380.0-94.0 fLMean Corpuscular Nsejhcrtuh56.0 25.9-34.0 pgMean Corpuscular HGB Conc31.229.9-35.2 g/dLRed Cell Distribution Width14.311.0-15.0 %Platelet Qpmlo693365-107 10 3/uLMean Platelet Volume8.99.5- 13.5 fLNeutrophils Percent Auto74.543.0-75.0 %Lymphocytes Percent Auto11.520.5- 60.0 %Monocytes Percent Auto8.21.7-12.0 %Eosinophils Percent Auto5.00.9-7.0 % Basophils Percent Auto0.40.2-2.0 %Immature Granulocytes Pct Auto0.40.0-0.5 % Neutrophils Absolute Auto10.31.4-6.5 10 3/uLLymphocytes Absolute Auto1.61.2-3.8 10 3/uLMonocytes Absolute Auto1.10.3-0.8 10 3/uLEosinophils Absolute Auto0.70.0- 0.7 10 3/uLBasophils Absolute Auto0.10.0-0.1 10 3/uLImmature Granulocytes Abs Auto0.060.00-0.03 10 3/uLPerforming Lab:see noteML - [facility] LB Type and Screen (Not yet reviewed by provider) Interpretation: Performing Lab: Notes/Report: [facility] ,Blood TypeA NegativeAntibody ScreenNEGATIVEPacked Red Blood Cells (Not yet reviewed by provider) Interpretation: Performing Lab: Notes/Report:Packed Red Blood Cells [id number] AN RC TRANSFUSED 06/08/24 1035 [id number] AN RC TRANSFUSED 06/08/24 1220 Erythrocyte Sedimentation Rate (Not yet reviewed by provider) Interpretation: Performing Lab: Notes/Report: [facility] ,Erythrocyte Sedimentation Rate92<=20 mm/hrPerforming Lab:see noteML - [facility] LBPROF CHEM 8 (BAS METB) (Not yet reviewed by provider) Interpretation: Performing Lab: Notes/Report: [facility] ,Uzsgdy592108-200 mmol/LPotassium5.03.5-5.1 mmol/BZxdsgesq73893-472 mmol/LCarbon Prsgkcn20.321.0-32.0 mmol/LAnion Gap14.7Gofxbbb11531-701 mg/dLBlood Urea Jkapvkdv35.07.0-18.0 mg/dLCreatinine1.940.70-1.30 mg/dLEstimated GFR ( Yempqdi13>=60 mL/min/1.73m 2Estimated GFR (Non- Ame35>=60 mL/min/1.73m 2 BUN Creatinine Ratio18.2Uskgmsi5.88.5-10.1 mg/dLPerforming Lab:see note - [facility] LBIRON AND TIBC (Not yet reviewed by provider) Interpretation: Performing Lab: Notes/Report: [facility] ,Iron17.065.0-175.0 ug/dLTotal Iron Binding Eqchmiyo167.0250.0-450.0 ug/dL Percent Iron Wwmqlhpftd55.7Performing Lab:see noteML - [facility] LB CRP (Not yet reviewed by provider) Interpretation: Performing Lab: Notes/Report: [facility] ,C Reactive Protein8.37<=0.50 mg/dLPerforming Lab:see note - [facility] LBCBC AUTO DIFF (Not yet reviewed by provider) Interpretation: Performing Lab: Notes/Report: [facility] ,White Blood Count13.14.0-11.0 10 3/uLRed Blood Count2.794.70-6.10 10 6/uL Hemoglobin6.914.0-18.0 g/dLRESULTS CALLED TO KRZYSZTOF FREED RNHematocrit22.9 42.0-54.0 %RESULTS CALLED TO KRZYSZTOF FREED RNMean Corpuscular Dmehzb37.180.0- 94.0 fLMean Corpuscular Oxvvuivrym43.725.9-34.0 pgMean Corpuscular HGB Conc30.1 29.9-35.2 g/dLRed Cell Distribution Width15.311.0-15.0 %Platelet Qivhl717727-660 10 3/uLMean Platelet Volume8.99.5-13.5 fLNeutrophils Percent Auto75.843.0-75.0 % Lymphocytes Percent Auto10.220.5-60.0 %Monocytes Percent Auto8.11.7-12.0 % Eosinophils Percent Auto5.10.9-7.0 %Basophils Percent Auto0.40.2-2.0 %Immature Granulocytes Pct Auto0.40.0-0.5 %Neutrophils Absolute Auto9.91.4-6.5 10 3/uL Lymphocytes Absolute Auto1.31.2-3.8 10 3/uLMonocytes Absolute Auto1.10.3-0.8 10 3/uLEosinophils Absolute Auto0.70.0-0.7 10 3/uLBasophils Absolute Auto0.10.0-0.1 10 3/uLImmature Granulocytes Abs Auto0.050.00-0.03 10 3/uLPerforming Lab:see noteML - [facility] LBPROF CHEM 8 (BAS METB) (Not yet reviewed by provider) Interpretation: Performing Lab: Notes/Report: [facility] ,Brmexm918093-282 mmol/LPotassium4.23.5-5.1 mmol/ALfehypqu04577-788 mmol/LCarbon Rbocbph66.221.0-32.0 mmol/LAnion Gap13.1Goqoigr5010-517 mg/dLBlood Urea Nitrogen 35.07.0-18.0 mg/dLCreatinine2.330.70-1.30 mg/dLEstimated GFR ( Eqxfrbw88 >=60 mL/min/1.73m 2Estimated GFR (Non- Ame29>=60 mL/min/1.73m 2BUN Creatinine Ratio15.6Ajbokfv9.78.5-10.1 mg/dLPerforming Lab:see noteML - [facility] LB Reason For Referral No Information [...] Administration Date Status Comme nts Flu, Fluarix (31895) 6 mos a nd older, single-dose (8620-0438) Unknown 02/11/2023 Administered Social History Tobacco Use: Social History Observation Description Date Details (start date - stop date) Never Smoker NA - NA Tobacco Control (Standard) Question Answer Notes Tobacco use: Nonsmoker Problems Problem Type SNOMED Code ICD Code Onset Dates Problem Status W/U Status Risk Notes Problem Anemia (803425884) Anemia, unspecified (D 64.9) ActiveconfirmedProblemFoot ulcer due to type 2 diabetes mellitus (0930845641198) Type 2 diabetes mellitus with foot ulcer (E11.621)ActiveconfirmedProblemPressure ulcer of right ankle, stage 2 (L89.512)ActiveconfirmedProblemChronic ulcer of foot (218726231)Non-pressure chronic ulcer of left heel and midfoot with fat layer exposed (L97.422)ActiveconfirmedProblemNon-pressure chronic ulcer of other part of right lower leg with necrosis of muscle (L97.813)ActiveconfirmedProblem Obesity (382029812)Obesity (E66.9)ActiveconfirmedProblemHypertension (17188226) HTN (hypertension) (I10)ActiveconfirmedProblemObstructive sleep apnea syndrome (08711509)JAE (obstructive sleep apnea) (G47.33)ActiveconfirmedProblemNeurogenic bladder (514315719)Neurogenic bladder (N31.9)ActiveconfirmedProblemIron deficiency anemia (70353595)Iron deficiency anemia (D50.9)ActiveconfirmedProblem Leukocytosis (710170538)Leukocytosis (D72.829)ActiveconfirmedProblemSkin ulcer associated with diabetes mellitus (545227485)DM type 2 causing leg or foot ulcer (E11.622)ActiveconfirmedProblemParaplegia (12366660)Paraplegic spinal paralysis (G82.20)ActiveconfirmedProblemLeukocytosis (349644201)Elevated WBCs (D72.829) ActiveconfirmedProblemChronic paraplegia (772209679)Chronic paraplegia (G82.20) ActiveconfirmedProblemChronic ulcer of foot (284309636)Non-pressure chronic ulcer of right heel and midfoot with fat layer exposed (L97.412)Activeconfirmed ProblemSkin ulcer of right knee with fat layer exposed (L97.812)Activeconfirmed ProblemDecubitus ulcer of left leg, stage 3 (L89.893)ActiveconfirmedProblem Decubitus ulcer of right heel, unstageable (L89.610)ActiveconfirmedProblem Pressure injury of right heel stage II (disorder) (07487481380987)Decubitus ulcer of right heel, stage 2 (L89.612)ActiveconfirmedProblemMalnutrition of moderate degree (Oswald: 60% to less than 75% of standard weight) (45447151) Moderate protein malnutrition (E44.0)ActiveconfirmedProblemStasis edema with ulcer of both lower extremities (I87.313)ActiveconfirmedProblemChronic ulcer of ankle (885420590)Non-pressure chronic ulcer of right ankle with other specified severity (L97.318)ActiveconfirmedProblemNon-pressure chronic ulcer of left heel and midfoot with other specified severity (L97.428)ActiveconfirmedProblemNon- pressure chronic ulcer of other part of left foot with other specified severity (L97.528)ActiveconfirmedProblemNon-pressure chronic ulcer of other part of right lower leg with other specified severity (L97.818)ActiveconfirmedProblemPressure injury of left heel (disorder) (55059063792892)Pressure injury of left heel, unstageable (L89.620)ActiveconfirmedProblemAnkle ulcer (079870337)Ischemic ulcer of right ankle with fat layer [...] Encounter Location Date Provider Diagnosis Pulmonary Medicine [place] [address] [place] [place] [place] [address] 02/28/2024 [facility] (PODIATRY)[address] [place] [address]/eter [facility] (PODIATRY)[address] [place] [address]/eter [facility] Pulmonary Medicine [address] [place] [place] [place] [address]/ [facility] [place] [place] [place] [address] 11/21/2024[facility] [address] [place] [place] [place] [address]/[facility] [address] [place] [place] [place] [address]/Raghavendra [facility] (obstructive sleep apnea) G47.33 ; Chronic paraplegia G82.20 and Obesity E66.9[facility] [address] [place] [place] [place] [address]/eter [facility] [address] [place] [place] [place] [address]/04/2024 [facility] [address] [place] [place] [place] [address]/[facility] [address] [place] [place] [place] [address]/[facility] [address] [place] [place] [place] [address]/[facility] Encounter Date Diagnosis (ICD Code) Assessment Notes Treatment Notes Treatment Clinical Notes Section Notes 06/21/2024 JAE (obstructive sleep apnea) (I CD-10 - G47.33) Aiko-oi-tlos encounter performed with the patient to document continued need for PAP therapy. -DME:UUI-Pyhmd-zfmdo study 03/14/2021: AHI 79; Titration: CPAP 90euP4N, though BiPAP also used during the study-Compliance was reviewed from 05/20/2024 - 06/18/2024-Total days used: (100%)-Total of all days >4 hours of use: 30/ (100%)-Current model, mode, & pressure(s): AirSense 11 AutoSet C PAP [id number] AHI: 13.7-Median air leak: 34.6L/min-Mask/harness fitting: Okay even with julien-Sleep quality: Wakes up once a night d/t pain-Daytime hypersomnolence: Not waking up feeling refreshed in the morning-Recommendations: He has superb compliance, but AHI is suboptimal @ 13.7 (goal <5). This is despite the patient losing 25# since last visit. Previously was on BiPAP and more recently CPAP 80guU0Q. Currently at 42ccO3P. Discussed several options including increasing pressure to 01noH7F or changing to an auto-CPAP. Patient voiced he would be okay with either option. Will try auto-CPAP to start [id number] - if unable to do so, will change pressure to 10giF9G and recheck compliance in 1 month. He was counseled to continue using it every night and with naps.-This exbr-ft-jwzi visit comes with the recommendation that the patient's DME renew, reorder, and/or replace tubing, supplies, mask, and/or PAP device (if applicable). F/U 1 year or sooner PRN. 5Chronic paraplegia (ICD-10 - G82.20)06/21/2024Obesity (ICD-10 - E66.9) Patient's weight is inducing a restrictive pulmonary physiology. Weight loss indicated: Decrease calories, increase activity. 06/21/2024Other Etiology unclear, no rashes/urticaria, macules, papules, etc. He states his recent renal function was okay, so less likely uremic leon. No change to soaps, detergents, software development advisor, body wash, etc. Diphenhydramine and hydroxyzine did not help. Question ferrous sulfate - this was the most recent change to his regimen, and there are case reports of itching/rashes associated with it. I strongly suggested he discuss this with Dr. River and/orhis PCP, or referral to an environmental monitoring specialist. Plan Of Treatment Pending Test Test Name [...] RIVER , 03/13/2025 10:30:00 AM, [address] [place], [address], Insurance Providers Payer Name Payer Address Payer Phone Subscriber Number Group Number Insured Name Patient Relationship to Insured Coverage Start Date Coverage End Date [place]IC[place] [address] [place] [address] [id number] Lorenzo Stinson - patient is the [id number] 2006 Medical (General) History Medical History History [...] Lumbar surgery for cauda equina syndrome Urethral dilationEGDColonoscopyAppendectomyHospitalization History Reason Date(Month/Year) Left lower extremity chronic ulcer, cell ulitis 10/07/2022
--- OUTSIDE RECORDS SUMMARY | 2025-02-09 11:44 | XMS_ITS | Clinical Summary ---
Author Organization [facility] Address [facility] [place] [id number] Care Team Providers Care Battery Charger Conveyor Line Name Role Phone Jameel Smith Primary Care [...] Last Filed Vital Signs Vital SignReadingTime TakenCommentsBlood Paavugog621/6604 1:06 PM EDT Vityv7574 1:06 PM EDTTemperature--Respiratory Rate--Oxygen Saturation-- Inhaled Oxygen Concentration--Weight--Height--Body Mass Index-- Plan of Treatment Health MaintenanceDue DateLast DoneCommentsAnxiety Lgdrepcol61/11/1980Depression Jvngmzizm36/11/1980HIV Zdgidbzvo02/11/1980Hepatitis C Jxvsrvuhj82/11/1980 DTaP,Tdap,Td Vaccine (1 - Tdap)1980Lipid Kwcejojzh30/11/1997CT Ixnnxyatwspk56/11/2007Cologuard (FIT-DNA)07/07/20068365Qarefzbujnd64/11/2007 Colorectal Cancer Gwscdubqp31/11/2007Diabetes Ljpaklken29/11/2007Fecal Occult Blood2006Prostate Cancer Screening Nzonxorrvr81/11/2007Sigmoidoscopy 2006Pneumococcal Vaccine: 50+ (1 of 1 - PCV)07/08/2011Shingrix Vaccine (1 of 2)07/08/2011Covid-19 Vaccine (1 - 2024- season)2024Influenza Vaccine (#1)2024RSV Vaccine (1 - 1-dose 75+ series)2036 Insurance Care Teams Team MemberRelationshipSpecialtyStart DateEnd Date Jameel Smith PCP - GeneralInternal Medicine07/01/11
--- OUTSIDE RECORDS SUMMARY | 2025-02-09 11:45 | XMS_ITS | Clinical Summary ---
Author Organization [facility] Address [facility] [address] [place] [address] Care Team Providers Care Cardiology Associate Name Role Phone Fidel Reis MD Primary Care Provider [phone] Allergies Active AllergyReactionsCriticalityNoted DateCommentsVancomycinOther (See Comments)01/01/2017 NEPHROTOXICITY Medications MedicationSigDispense QuantityRefillsLast FilledStart DateEnd DateStatus citalopram (CeleXA) 40 mg tablet Take 40 mg by mouth daily.09/22/2016Active atenolol (TENORMIN) 100 mg tablet Take 100 mg by mouth daily.06/29/2016Active amLODIPine (NORVASC) 10 mg tablet Take 10 mg by mouth daily.06/27/2016Active fenofibrate (TRICOR) 145 mg tablet Take 145 mg by mouth daily. DAILY AT OUHJCUG4209/22/2016Active rosuvastatin (CRESTOR) 20 mg tablet Take 20 mg by mouth daily. TAKE ONE TABLET BY MOUTH DAILY AT UJBKTUJ3006/07/2016 Active insulin glargine (LANTUS) 100 unit/mL injection [...] standard drink = 0.6 oz pure alcohol)ChildcareAnswerDate NvryftxrFbcmvapzgBggfzah65/12/2019EmploymentAnswer Date PzhqatkvAtidlkviskFmloroa45/12/2019Purpose - LifeAnswerDate RecordedPurpose and direction in waciPgdmhyw25/25/2021ex and Gender InformationValueDate RecordedSex Assigned at BirthNot on fileLegal KbqRgfs1011/01/2014 11:25 AM EDT Gender IdentityNot on fileSexual OrientationNot on file Last Filed Vital Signs Vital SignReadingTime TakenCommentsBlood Pulfmidx385/6907 9:51 AM EDT Nphpf327110/11/2023 9:51 AM SOJBpoofgddvyh19.6 ??C (97.8 ??F)01/22/2017 3:27 PM EDTRespiratory Ornx382710/11/2023 9:51 AM EDTOxygen Ajxozdgmas492%10/11/2023 9:51 AM EDTInhaled Oxygen Concentration--Yqrxvc571.1 kg (225 lb)10/11/2023 8:12 AM GSLSqjmfm752.3 cm (5' 11 )10/11/2023 8:12 AM EDTBody Mass Index31.38010/11/2023 8:12 AM EDT Plan of Treatment Health MaintenanceDue DateLast DoneCommentsDepression Ijxyxffpw19/11/1974 DTaP,Tdap and Td Vaccines (1 - Tdap)1980Zoster (Shingles) Vaccine (1 of 2) 07/08/2011dult BMI Oruwjqecm38/15/72474810/11/2023Tobacco Xrfyyphte41/15/2025 10/11/2023Influenza Bejscoa03/01/043521/, 04/10/2017, 01/01/2015, Additional history existsRSV ( or age 60+ yrs) (1 - 1-dose 75+ series) 2036 Medical Devices Not on file Insurance * Guarantor: Ganga Miranda TypeRelation to PatientDate of BirthPhone Billing AddressPersonal/EtzerkIbzo92/11/1961 [place] [id number] * Guarantor: Ganga Miranda TypeRelation to PatientDate of BirthPhone Billing AddressPersonal/MthmwvVxqp99/11/1961 [address] [place] [id number] Care Teams Team MemberRelationshipSpecialtyStart DateEnd Date Fidel Reis MD PCP - Husbjhz03/2/17
--- OUTSIDE RECORDS SUMMARY | 2025-02-09 11:46 | XMS_ITS | Clinical Summary ---
Author Organization [facility] Address [address], [address] [place] [address] Care Team Providers Care Video Tape Editor Name Role Phone Fidel Reis MD Primary Care Provider + Allergies Active AllergyReactionsCriticalityNoted QdomYtvgphdjZyyzfkkabj47/25/2016 States had kidney issues after taking Medications [...] migh t be different from the original. MOLD BUILDER: KERRI HARTMAN PH: [phone] EXT: [phone] FAX : [phone] [facility] Ph. [phone] ProblemNoted DateDiagnosed DatePostprocedural stricture of overlapping sites of urethra in male07/06/2022Iron deficiency uqpjnv1706/26/2022cute kidney injury 06/25/2022ressure injury of right ankle, stage 403 Overview (06/24/2022): Fibular malleolus Acute kidney injury superimposed on CKD06/23/2022bnormal EKG006/23/2022 Neurogenic cdijyed9306/23/20226344Pvxsgbmiackq51/27/2023MSSA (methicillin susceptible Staphylococcus aureus) vrymtpxvd77/02/2018 Overview (05/28/2017): RLE Decubitus ulcer of coccygeal region, stage 4016291Cwqulopcwk21/11/2018 Bacterial awlkofhos58/22/2017Morbid obesity due to excess mxsuczkl56/06/2017 Acute on chronic renal mlheknp9112/30/2016Open wound of right ankle12/30/2016 Enterococcus faecalis wzgbjehrg40/02/2017Skin ulcer of right heel with fat layer jmzqfqa1009/02/2016Mixed ccbzfefgdbsjbj39/28/2172Mkgurpinbdro88/28/2016Skin ulcer of right ankle with fat layer depruzx5504/25/2015 Overview (04/25/2015): Lateral ankle @ fibular malleolus Decubitus ulcer of coccygeal spmbiu3607/19/2013Cauda equina icsrcinq65/12/2012 Overview (12/03/2014): replace inactive diagnosis Diabetes mbvpzqtu01/05/2896Xvbvjlhxnx98/15/2011Open wound of knee, leg (except thigh), and ankle, xmdripxzspq93/30/2011HypertensionDepressionOsteomyelitis of right footOsteomyelitis of ankle or foot, right, acute Resolved Problems ProblemNoted DateDiagnosed DateResolved DateAcute hematogenous osteomyelitis of right footAbscess of right foot including toes11/04/2016 01/13/2017 Overview (11/04/2016): Lateral 5th MPJ Skin ulcer of right midfoot region with fat layer toliuzj43 Overview (10/08/2016): Lateral 5th MPJ Sepsis due to methicillin resistant Staphylococcus aureus (MRSA)09/09/2016 05/26/2017Ulcer of right midfoot with fat layer Overview (09/02/2016): Right 5th MPJ Skin ulcer of right calf with fat layer fvojsvq09Cellulitis of right lower iehootvyl35Cellulitis and abscess of leg, except footCellulitis of right leg09/02/2016 Immunizations ImmunizationAdministration DatesNext DueInfluenza Vaccine, unspecified ctbihmztxth19/01/2016Influenza, FLUARIX, FLULAVAL, FLUZONE (age 6 mo+) and [...] you with harm?Not on 2022Read-Only, Retired: Physical HklxzKnsuap16/11/2023Read-Only, Retired: Verbal LmjnyEbrycs42/11/2023 Read-Only, Retired: Emotional wnrcaTvzdiz13/11/2023Read-Only, Retired: Financial HxicsOixqyj06/11/2023Read-Only, Retired: Sexual pzaqeRtboxl01/11/2023Sex and Gender InformationValueDate RecordedSex Assigned at BirthNot on fileLegal Sex Male05/08/2012 10:15 PM ESTGender IdentityNot on fileSexual OrientationNot on file Last Filed Vital Signs Vital SignReadingTime TakenCommentsBlood Nabverbk930/6706 10:34 AM EDT Exyvb499909/25/2022 10:34 AM VICCseueljrjnq23.5 ??C (97.7 ??F)09/25/2022 10:34 AM EDTRespiratory Satt1655 1:15 PM EDTOxygen Fnqskwluxd68%2022 1:15 PM EDTInhaled Oxygen Concentration--Hdcikz968.4 kg (250 lb)09/25/2022 10:34 AM EUJXqrthr225.3 cm (5' 11 )09/25/2022 10:34 AM EDTBody Mass Index34.8706 10:34 AM EDT Plan of Treatment Health MaintenanceDue DateLast DoneCommentsDepression Dqztepehdw20/11/1974HIV wcdeuy5407/07/1976Diabetic retinal exam07/08/1979Hepatitis C ycbdbf5507/08/1979 DTaP/Tdap/Td vaccine (1 - Tdap)1980Pneumococcal 50+ years Vaccine (1 of 2 - PCV)1980Fecal-DNA (Cologuard): Average risk2006Sigmoidoscopy/CT seomlgbrecqj91/11/2007Shingles vaccine (1 of 2)07/08/2011Diabetic Alb to Cr ratio (uACR) testDiabetic foot exam Respiratory Syncytial Virus (RSV) or age 60 yrs+ (1 - Risk 60-74 years 1-dose series)2021nnual Wellness Visit (Medicare)02/22/2023Lipids , 04/25/2015, 04/25/2015FIT/FOBT: Average risk06/26/2023 06/25/20227437Cchmfsdvxzm07, 06/26/2022olorectal Cancer Screen 4A1C test (Diabetic or [...] ProblemsRecent ProgressPatient-Stated?Author Blood Pressure < 140/90 Blood Sgnottzm381/67(09/25/2022 10:34 AM EDT)Iesha Lyons RN non smoker [...] 12/25/2016 by Gabriel Haile DPM at [facility]/Graft/Tissue/Human/SynthRight: Biomonde [id number] / / [id number]:tobramyicin recostituted with 10ml normal saline ref # [id number] exp 07/27/2018 lot # [id number] Procedures Procedure NamePriorityDate/TimeAssociated DiagnosisCommentsBASIC METABOLIC PANEL Tzbpcht2109/18/2022 1:12 PM EDT Cauda equina syndrome (HCC) Neurogenic bladder Urinary retention Urinary incontinence without sensory awareness HEMOGLOBIN V2IUhwn [facility] Label 2022 10:47 AM EDT COLONOSCOPY CUDHMZTLIImbqjqd88/31/2023 7:28 AM EDT BLOOD OCCULT STOOL DIAGNOSTICSunquest Label 06/25/2022 7:45 PM EDT LIPID DNUSATltpxzb58/28/2023 6:40 AM EDT MICROALBUMIN, URSunquest Label Print04/24/2015 11:32 PM EST from Last 3 Months or Most Recently Relevant to Health Maintenance Results * (ABNORMAL) Basic Metabolic Panel (09/18/2022 1:12 PM EDT)ComponentValueRef RangeTest MethodAnalysis TimePerformed AtPathologist DwclibguqJyfvthm515(H)70 - 99 mg/dL09/18/2022 1:12 PM [facility] QJFDBH69(H)8 - 23 mg/dL09/18/2022 1:12 PM [facility] LABCreatinine1.25(H) 0.70 - 1.20 mg/dL09/18/2022 1:12 PM [facility] LABEst, Glom Filt Rate>60>60 mL/min/1.52f95309/18/2022 1:12 PM [facility] LABComment: ? These results are not [...] tubular secretion. BUN/Creatinine Ratio26(H) - 1:12 PM [facility] LABCalcium9.38.6 - 10.4 mg/dL09/18/2022 1:12 PM [facility] CXMVhfdec798489 - 144 mmol/L09/18/2022 1:12 PM [facility] LABPotassium4.13.7 - 5.3 mmol/L09/18/2022 1:12 PM [facility] NPQCexyyukj63331 - 107 mmol/L09/18/2022 1:12 PM [facility] UZIBQ93769 - 31 mmol/L09/18/2022 1:12 PM [facility] LABAnion Bkl212 - 17 mmol/L09/18/2022 1:12 PM [facility] LABSpecimen (Source)Anatomical Location / LateralityCollection Method / VolumeCollection TimeReceived TimeBLOOD SPECIMEN / Reavmla0009/18/2022 1:12 PM EDT 09/18/2022 1:13 PM EDT Narrative Authorizing ProviderResult TypeResult StatusBethjennifer Bradley FIELD STAFF MANAGER - GRANT MANAGER CHEMISTRY ORDERABLESFinal ResultPerforming OrganizationAddressCity/State/ZIP CodePhone Number [facility] [address] [phone] * (ABNORMAL) Hemoglobin A1C (2022 10:47 AM EDT)ComponentValueRef RangeTest MethodAnalysis TimePerformed AtPathologist SignatureHemoglobin A1C7.6(H)4.0 - 6.0 %2022 10:47 AM EDTMERCY LABORATORIESEstimated Avg Cfnungn264ti/dL 2022 10:47 AM EDTMERCY LABORATORIESComment: The ADA and AACC recommend providing the estimated average glucose result to permit better patient understanding of their HBA1c result. Specimen (Source)Anatomical Location / LateralityCollection Method / Volume Collection TimeReceived TimeBLOOD SPECIMEN / Ohahlfp5407/07/2022 10:47 AM EDT 2022 10:51 AM EDT Narrative Authorizing ProviderResult TypeResult StatusMichael Brelynette FIELD STAFF MANAGER - SOW FARM TECHNICIAN CHEMISTRY ORDERABLESFinal ResultPerforming OrganizationAddressCity/State/ZIP CodePhone Number [facility] [address] [phone] [phone] * Colonoscopy (06/26/2022 7:28 AM EDT)Specimen (Source)Anatomical Location / LateralityCollection Method / VolumeCollection TimeReceived Time Narrative Epic, User - 06/26/2022 7:28 AM EDT No dictation Authorizing ProviderResult TypeResult StatusVivian N Alan MDENDOSCOPY ORDERABLESFinal Result * Blood occult stool #1 (06/25/2022 7:45 PM EDT)ComponentValueRef RangeTest MethodAnalysis TimePerformed AtPathologist SignatureOccult Blood, Stool #1 WDCBAQOHDJOOBUOW10/30/2023 7:45 PM [facility] LABDate, Stool #8825606/25/2022 7:45 PM [facility] LABComment: 30 23 Time, Stool #11,7484106/25/2022 7:45 PM [facility] Specimen (Source)Anatomical Location / LateralityCollection Method / Volume Collection TimeReceived TimeSTOOL SPECIMEN / Jsmvwvc5306/25/2022 7:45 PM EDT 06/25/2022 7:52 PM EDT Narrative Authorizing ProviderResult TypeResult StatusShirjose Ritchie FIELD STAFF MANAGER - GRANT MANAGER BODY FLUIDS AND STOOLS ORDERABLESFinal ResultPerforming OrganizationAddress City/State/ZIP CodePhone Number [facility] [address] [phone] * (ABNORMAL) Lipid Panel (06/23/2022 6:40 AM EDT)ComponentValueRef RangeTest MethodAnalysis TimePerformed AtPathologist NcbicdquhCtdxfxcvpuf346<200 mg/dL 06/23/2022 6:40 AM EDTMERCY LABORATORIESComment: Cholesterol Guidelines: <200 Desirable 200-240 ??Borderline >240 Undesirable HDL28(L)>40 mg/dL06/23/2022 6:40 AM EDTMERCY LABORATORIESComment: HDL Guidelines: <40 Undesirable 40-59 ?Borderline >59 Desirable LDL Kygfkkscxoi351 - 130 mg/dL06/23/2022 6:40 AM EDTMERCY LABORATORIESComment: LDL Guidelines: <100 Desirable 100-129 ?? Near to/above Desirable 130-159 ?? Borderline >159 Undesirable Direct (measured) LDL and calculated LDL are not interchangeable tests. Chol/HDL Ratio5.3(H)<503 6:40 AM EDTMERCY LABORATORIESComment: Ovsqeccnvnizd393<150 mg/dL06/23/2022 6:40 AM EDTMERCY LABORATORIESComment: Triglyceride Guidelines: <150 Desirable 150-199 ??Borderline 200-499 ??High >499 Very high Based on AHA Guidelines for fasting triglyceride, December 2011. Specimen (Source)Anatomical Location / LateralityCollection Method / Volume Collection TimeReceived TimeBLOOD SPECIMEN / Uxsskzm1206/23/2022 6:40 AM EDT 06/23/2022 5:47 PM EDT Narrative Authorizing ProviderResult TypeResult StatusZoila GUERREROTRINITY HEALTH SYSTEMEMISTRY ORDERABLESFinal ResultPerforming OrganizationAddressCity/State/ZIP CodePhone Number [facility] [address] [place] [address], [place] [phone] [address], [place] [phone] * (ABNORMAL) Microalbumin, Ur (04/24/2015 11:32 PM EST)ComponentValueRef Range Test MethodAnalysis TimePerformed AtPathologist SignatureAlbumin Opjzx217(H) <21 mg/L04/25/2015 1:13 AM ESTPN LABCreatinine, Ur274.6(H)28.0 - 217.0 mg/dL 04/25/2015 12:27 AM ESTPN LABMicroalb/Electromechanical Technician. Sncmd768yhl/mg creat04/25/2015 1:13 AM ESTPN LABUrine Microalbumin Gexuxx4904/25/2015 1:13 AM ESTPN LAB Comment: REFERENCE RANGE NORMAL ? = 0 - 13 ?? mcg/mg creat BORDERLINE = 14 - 30 ??mcg/mg creat ABNORMAL = >30 mcg/mg creat Performed at [address] [place] [address] ([phone] Specimen (Source)Anatomical Location / LateralityCollection Method / Volume Collection TimeReceived RhhxBbdkl48/27/2016 11:32 PM EST04/24/2015 11:46 PM EST Narrative Authorizing ProviderResult TypeResult StatusMarshal NAPIER ORDERABLESFinal ResultPerforming OrganizationAddressCity/State/ZIP CodePhone Number [facility] [address] [place] [address], [place] [phone] [facility] from Last 3 Months or Most Recently Relevant to Health Maintenance Additional Health Concerns InfectionOnset DateLast IndicatedMRSA Comment:Right ankle 01/07/2012 Insurance * Guarantor: Ganga Miranda TypeRelation to PatientDate of BirthPhone Billing AddressPersonal/UmepapDawc07/11/1961 [facility] [address] [place] [address] * Guarantor: Ganga Miranda TypeRelation to PatientDate of BirthPhone Billing AddressPersonal/CewbgySmav65/11/1961 [facility] [address] [place] [address] Advance Directives * Full Code (Latest Code [...] Care Teams Team MemberRelationshipSpecialtyStart DateEnd Date Fidel Resi MD [facility]07/03/15
== END 2025-02-09 11:40 | disposition home or self-care (01) ==
LOC: PST 11:40
PROVIDERS: PCP Family Medicine; Visit Provider Urology
DX: Z01.818 Encounter for other preprocedural examination (principal); N35.919 Unspecified urethral stricture, male, unspecified site

== ENCOUNTER 2025-02-15 09:16 | Day surgery (SDC) | payer BC, MEDICARE, SELFPAY ==
--- OUTSIDE RECORDS SUMMARY | 2025-02-15 09:24 | XMS_ITS | CCD ---
Author Organization [facility]ini[facility] Care Team Providers Care Crusher Setter Name Role Phone WESTONMICHAELA Unavailable Unavailable NADERER, [...] NADERER, DR FIDEL Tellez Primary Care Unavailable SEMINOLE, DR KHADAR [employer] Unavailable BRAR, DR [...] Referring Unavailable NADEREPratik, FIDEL Primary Care Physician [phone] Milena NAZARIO, Fidel Primary Care Provider Fidel Abbott MD Unavailable Fidel Abbott MD Primary Care Provider [phone] MD Fidel Abbott Primary Care Provider MD Cathy Brar Attending Provider CRISTIANA Moffett Attending Provider [phone] CRISTIANA Hernandes Attending Provider Khadar Guerrero Referring Unavailable MILENA, FIDEL Primary Care Unavailable FIDEL ABBOTT Referring Unavailable Fidel Abbott MD Primary Care Provider Fidel Abbott MD Unavailable Fidel Abbott MD Primary Care Provider Milena NAZARIO, Fidel Primary Care Provider Aleta NAZARIO Nina Attending Provider [phone] Cathy Brar MD Attending Provider [phone] Cathy Brar MD Attending Provider [phone] Fidel Abbott MD Primary Care Provider Fidel Abbott MD Unavailable FIDEL ABBOTT Attending Unavailable MILENA, FIDEL Attending Unavailable FIDEL ABBOTT Attending Unavailable Gonzalez MA, Saebel Unavailable Unavailable Milena NAZARIO, Fidel Primary Care Provider [phone] Cathy Brar MD Attending Provider Latha CAICEDO-Jeffrey, [...] Attending Provider Cathy Brar MD Attending Provider [phone] Moisés Morelos MD Attending Provider Jesus Hernandes DPM Referring Provider [phone] Milena NAZARIO, Fidel Primary Care Provider Nina River MD Attending Provider Jesus Hernandes DPM Attending Provider Cathy Brar MD Attending Provider Moisés Morelos MD Attending Provider Jesus Hernandes DPM Referring Provider Fidel Abbott [...] of OnsetReaction(s) Facility (13 sources)Vancomycin; Translations: [VANCOMYCIN]Drug Jrghpbn15-60-1688Coag kidneys [facility] Repository (20 sources)VancomycinDrug Sexgfkn04-36-8561Scknm, Unknown, Other (See Comments) [facility] (20 sources)omadacycline; Translations: [omadacycl]Drug ambphfb93-93-8021Yzwaj pain (finding)[facility] SouthComment on above:kidney pain (10 sources)ferrous sulfate; Translations: [ferrous sulfate]Drug Allergy 54-63-2713YgpsqbmYjubvhflrTri[facility] (1 source)VancomycinDrug Wpnosqh00-49-9911NdfrkknyuMer[facility] Medications Current Medications MedicationDrug Class(es)DatesSig (Normalized)Sig (Original)Acetaminophen (1 source)Start: 98-90-0006xmeyrpqszixka (TYLENOL) tablet 650 mgatenolol 100 mg oral tablet (20 sources)beta-Adrenergic BlockerStart: 83-07-0791nfzb 100 mg by mouth once nicuy021 mg, Oral, DAILY, First dose on Wed06/23/22 at 0900, Until Discontinued Start: 06-29-2016 End: 87-01-9679xjxh 1 tablet by mouth once daily in the morningAtenolol 100 mg Tablet Active 100 MG PO Every morning November 02, 2017 11:00pm HTN Complies with drug therapy End: 92-21-5675qbvz 2 tablets by mouth once dailyatenolol (TENORMIN) 50 MG tablet Take 100 mg by mouth daily. 0 06/26/2022 Discontinued (Stop Takingat Discharge)atorvastatin 40 mg oral tablet (20 sources)HMG-CoA Reductase InhibitorStart: 11-47-3646gpee 1 tablet by mouth once dailyatorvastatin 40 mg Tab 40 mg = 1 tab(s), Oral, Daily Start Date: 01/15/25 Status: Ordered Repeat number: 1Start: 04-06-2023 End: 12-41-3134geqo 1 tablet by mouth in the morningatorvastatin (Lipitor) 40 MG tablet Indications: Dyslipidemia TAKE 1 TABLET BY MOUTH IN THE UEHIRZB71 tablet 5 11/22/2024 Activecitalopram 40 mg oral tablet (20 sources)Serotonin Reuptake InhibitorStart: 31-43-0867foky 40 mg by mouth once daily40 mg, Oral, DAILY, First dose on Wed06/23/22 at 0900, Until DiscontinuedStart: 09-22-2016 End: 15-56-0075dpwy 1 tablet by mouth once daily in the morningCitalopram (Celexa) 40 mg Tablet Active 40 MG PO Every morning December 06, 2016 11:00pm Depression Complies with drug therapy End: 99-95-4426trmo 2 tablets by mouth once dailycitalopram (CELEXA) 20 MG tablet Take 40 mg by mouth daily 0 06/26/2022 Discontinued (Stop Taking at Discharge)clindamycin 300 mg oral capsule (15 sources)Lincosamide AntibacterialStart: 05-13-2023 End: 71-62-6262ghqc 1 capsule by mouth in the morning, [...] capsule 0 05/13/2023 05/23/2023 ActiveStart: 06-26-2022 End: 58-41-1021ymza 1 capsule by mouth three times dailyclindamycin (CLEOCIN) 300 MG capsule Take 1 capsule by mouth 3 times daily for 10 days 30 capsule 0 06/26/2022 07/06/2022 ActiveStart: 06-23-2022 End: 30-97-0351sqbjemnnafn (CLEOCIN) 600 mg in dextrose 5 % 50 mL IVPBStart: 07-28-2018 End: 01-50-8123Uykfsskfhel Hcl 150 mg Capsule Discontinued July 27, 2018 11:00pm November 17, 2018 9:14amStart: 07-28-2018 End: 12-25-0555Sggnhuboepo Hcl Discontinued July 28, 2018 12:00am November 17, 2018 10:14amCMC-Calcium Alginate-Silver (TEGADERM ALGINATE AG DRESSING) 4 X 5 PADS (3 sources)Start: 64-48-7244XQU-Calcium Alginate-Silver (TEGADERM ALGINATE AG DRESSING) 4 X 5 PADS Apply 1 each topically daily Right ankle and foot open wounds. Then cover with Kerlex and Olga 25 each 3 06/26/2022 ActiveGauze Pads & Dressings (KERLIX GAUZE ROLL MEDIUM) MISC (3 sources)Start: 56-15-7880Rwloa Pads & Dressings (KERLIX GAUZE ROLL MEDIUM) MISC 2 each by Does not apply route daily 96 each 2 06/26/2022 ActiveglipiZIDE 10 mg oral tablet (20 sources)SulfonylureaStart: 06-30-2018 End: 37-63-5391yhpn 1 tablet by mouth twice dailyGlipizide 10 mg Tablet Active 10 MG PO Twice daily June 29, 2018 11:00pm Complies with drug therapy hydrOXYzine hydrochloride 50 mg oral tablet (20 sources)AntihistamineStart: 08-03-7073gezp 1 tablet by mouth four times daily as neededHydroxyzine Hcl 50 mg tablet Active 50 MG PO Four times daily as needed for itching January 30, 2025 10:58am Complies with drug therapyStart: 07-45-9938yiuh 1 tablet by mouth four times daily as neededhydrOXYzine hydrochloride 50 mg oral tablet 50 mg = 1 tab(s), Oral, QID, TAKE 1 TABLET BY MOUTH 4 TIMES DAILY NEEDED FOR ITCHING Start Date: 01/15/25 Status: Ordered Repeat number: 1Start: 31-52-2574vjut 1 tablet by mouth four times daily as neededhydrOXYzine HCl (Atarax) 50 MG tablet Indications: Pruritus TAKE 1 TABLET BY MOUTH 4 TIMES DAILY ASNEEDED FOR ITCHING 30 tablet 09/22/2024 ActiveStart: 08-30-2024 End: 01-13-5479rqob 1 tablet by mouth once daily at bedtimeHydroxyzine Hcl 50 mg tablet Discontinued 50 MG PO Daily at bedtime August 29, 2024 11:00pm January 30, 2025 10:59amStart: 07-18-2024 End: 90-61-6025uzpe 1 tablet by mouth four times daily as neededhydrOXYzine HCl (Atarax) 50 MG tablet Indications: Pruritus Take 1 tablet (50 mg) by mouth 4 (four)times a day as needed for itching 120 tablet 5 07/31/2024 ActiveStart: 02-01-2024 End: 16-14-0087usjh 1 tablet by mouth four times daily as neededhydrOXYzine HCl (Atarax) 50 MG tablet Indications: Pruritus TAKE 1 TABLET BY MOUTH 4 TIMES DAILY ASNEEDED FOR ITCHING 30 tablet 5 03/13/2024 ActiveStart: 01-17-2024 End: 49-25-5317ehbf 1 tablet by mouth four times daily as neededhydrOXYzine HCl (Atarax) 50 MG tablet Indications: Pruritus Take 1 tablet (50 mg) by mouth 4 (four)times a day as needed for itching 30 tablet 2 01/17/2024 01/20/2024 DiscontinuedStart: 38-53-0603ycxj 1 tablet by mouth four times daily as needed hydrOXYzine HCl (Atarax) 25 MG tablet Indications: Pruritus Take 1 tablet (25 mg) by mouth 4 (four)times a day as needed for itching 120 tablet 3 11/18/2023 Activesodium hypochlorite 1.25 mg/ml topical spray (20 sources)Start: 36-69-7007appkwi hypochlorite (DAKINS) 0.125 % SOLN external solution Apply topically daily Use on the Curlexgauze dressings changed once daily on the sacrococcygeal wound and buttock wounds 473 mL 2 06/26/2022 Active Start: 89-46-5620kpjmrb hypochlorite (DAKINS) 0.125 % external solutionStart: 12-07-2016 End: 86-20-7038Yebcxz Hypochlorite (Dakin's Solution) 0.25 % solution Discontinued 1 APPLIC TOPICAL Daily 473 2 October 06, 2017 11:00pm November 03, 2017 1:58pmIron (3 sources)Start: 71-46-1106HZOO 65MG TAB IRON 65MG TAB Start Date: 11/09/22 Status: Ordered Repeat number: 1Start: 66-60-1198BJPN 65MG TAB IRON 65MG TAB Start Date: 11/09/22 Status: Orderedlisinopril 20 mg oral tablet (20 sources)Angiotensin Converting Enzyme InhibitorStart: 06-82-7148ysgb 1 tablet by mouth once dailyLisinopril 20 mg tablet Active 20 MG PO Daily January 30, 2025 12:00am Complies with drug therapyStart: 10-23-2024 End: 80-11-3546nudy 1 tablet by mouth once dailylisinopril 20 MG tablet Indications: Benign hypertension Take 1 tablet by mouth once daily 30 tablet 5 11/22/2024 ActiveStart: 94-95-1802bxpp 1 tablet by mouth once dailylisinopril 20 MG tablet Indications: Benign hypertension Take 1 tablet by mouth once daily 30 tablet 08/28/2024 ActiveStart: 78-68-0056rlby 1 tablet by mouth once daily lisinopril 20 MG tablet Indications: Benign hypertension (CMS/HCC) Take 1 tablet by mouth once daily 30 tablet 07/24/2024 ActiveStart: 31-44-2974uyyw 1 tablet by mouth once dailylisinopril 20 MG tablet Indications: Benign hypertension (CMS/HCC) Take 1 tablet by mouth once daily 30 tablet 05/22/2024 ActiveStart: 23-98-5086fzja 10 mg by mouth once dailylisinopril (PRINIVIL,ZESTRIL) 20 mg tablet Take 10 mg by mouth daily. 01/01/2017 ActiveStart: 12-07-2016 End: 19-04-7122lnzn 2 tablets by mouth once daily in the morningLisinopril 10 mg Tablet Discontinued 20 MG PO Every morning December 06, 2016 11:00pm January 30, 2025 10:58am HTNStart: 77-73-0284eeqi 20 mg by mouth once daily in the morningLisinopril Active 20 MG PO Every morning December 07, 2016 12:00amtake 0.5 tablet by mouth once dailylisinopril (PRINIVIL;ZESTRIL) 20 MG tablet Take 0.5 tablets by mouth daily 0 ActiveMultiple Vitamin (MULTIVITAMIN) TABS tablet (3 sources)Start: 16-08-6218ecnf 1 tablet by mouth once dailyMultiple Vitamin (MULTIVITAMIN) TABS tablet Take 1 tablet by mouth daily 30 tablet 2 06/27/2022 Activemultivitamin 1 tablet (1 source)Start: 94-44-6791luohyrmsenny 1 tabletondansetron (ZOFRAN-ODT) disintegrating tablet 4 mg (1 source)Start: 55-93-2508xfzsfpdigys (ZOFRAN-ODT) disintegrating tablet 4 mg predniSONE 50 mg oral tablet (3 sources)Start: 01-17-2024 End: 84-70-5223oraq 1 tablet by mouth once dailypredniSONE (Deltasone) 50 MG tablet Indications: Pruritus Take 1 tablet (50 mg) by mouth Daily for 6 days 6 tablet 01/17/2024 01/23/2024 ActiveSITagliptin 100 mg oral tablet (20 sources)Dipeptidyl Peptidase 4 InhibitorStart: 07-29-2021 End: 84-29-6343hmef 1 tablet by mouth once daily in the morningSitagliptin Phosphate (Januvia) 100 mg tablet Active 100 MG PO Every morning July 28, 2021 11:00pm Complies with drug fyroawe3741 ml sodium chloride 9 mg/ml injection (6 [...] on Wed06/22/22 at 2100, U ntil DiscontinuedStart: 89-69-9078zutp 10 mL intravenously once as zpxrax51 mL, IntraVENous, PRN, Starting on Wed06/22/22 at 2018, Until Discontinued, Line Care, After every IV line useStart: 06-22-2022 End: .9 % sodium chloride bolus Completed/Discontinued Medications MedicationDrug Class(es)DatesSig (Normalized)Sig (Original)acetaminophen 325 mg / HYDROcodone bitartrate 5 mg oral tablet (20 sources)Opioid AgonistStart: 10-02-2024 End: 09-59-8691pidf 1 tablet by mouth every six hours as needed for pain Hydrocodone-Acetaminophen 5-325 mg tablet Discontinued 1 TAB PO Q6H as needed for pain 28 7 0 October 02, 2024 January 25, 2025 12:18pm Other acute postprocedural pain Other acute postprocedural painStart: 09-04-2021 End: 78-90-1321cdfp 1 tablet by mouth every six hours as needed for pain Hydrocodone-Acetaminophen 5-325 mg tablet Discontinued 1 TAB PO Q6H as needed for pain 28 7 0 September 08, 2022 February 06, 2023 9:43pm Sacral back pain Sacrococcygeal disorders, not elsewhere classifiedStart: 11-15-2017 End: 94-71-4830cckb 1 tablet by mouth every six hours as needed for pain Hydrocodone-Acetaminophen 5-325 mg tablet Discontinued 1 TAB PO Q6H as needed for pain 28 7 0 November 15, 2017 November 20, 2017 11:00pm November 21, 2017 11:01pm Pressure ulcer of sacral region, stage 3amLODIPine (20 sources)Dihydropyridine Calcium Channel BlockerStart: 12-07-2016 End: 91-52-0915Uuyjnzmaec Discontinued December 07, 2016 12:00am December 08, 2016 2:50pmStart: 12-07-2016 End: 64-43-5007Hfbfhrzhys Discontinued December 06, 2016 11:00pm December 08, 2016 1:50pmStart: 06-27-2016 End: 92-75-2763uzgi 1 tablet by mouth once daily in the morningAmlodipine 10 mg Tablet Active 10 MG PO Every morning December 07, 2016 11:00pm HTN Complies with drug therapy End: 17-76-0468nosl 2 tablets by mouth once dailyamlodipine (NORVASC) 5 MG tablet Take 10 mg by mouth daily 0 06/26/2022 Discontinued (Stop Taking at Discharge)amoxicillin 500 mg / clavulanate 125 mg oral tablet (20 sources)Penicillin-class AntibacterialStart: 12-01-2022 End: 82-33-8305npqj 1 tablet by mouth every twelve hoursAmoxicillin-Pot Clavulanate 500-125 mg tablet Discontinued 1 TAB PO Q12H November 30, 2022 11:00pm February 07, 2023 3:16pmStart: 04-30-2020 End: 65-19-3770vwso 1 tablet by mouth twice dailyAmoxicillin-Pot Clavulanate (Augmentin) 875-125 mg Tablet Discontinued 1 TAB PO Twice daily April 30, 2020 12:00am May 06, 2020 6:39pmStart: 10-12-2017 End: 21-19-4419tjzz 1 tablet by mouth twice dailyAmoxicillin-Pot Clavulanate (Augmentin) 875-125 mg tablet Discontinued 1 TAB PO Twice daily 28 14 0July 2017 11:00pm October 24, 2017 11:00pm October 25, 2017 11:01pmbetamethasone 0.001 mg/mg topical ointment (11 sources)CorticosteroidStart: 11-17-2018 End: 32-68-7865Phkgzzfringur Valerate 0.1 % ointment Discontinued 1 APPLIC TOPICAL Daily as needed for skin irritation 45 2 November 17, 2018 9:49am March 23, 2019 11:03am use for 2 wks on and 1 wk off to affected area calcium gluconate 1,000 mg in sodium chloride 0.9 % 100 mL IVPB (1 source)Start: 06-22-2022 End: 55-17-2067dfjvssm gluconate 1,000 mg in sodium chloride 0.9 % 100 mL IVPB cephalexin 500 mg oral capsule (11 sources)Cephalosporin AntibacterialStart: 11-30-2017 End: 69-39-1958mymr 1 capsule by mouth three times dailyCephalexin 500 mg Capsule Discontinued 500 MG PO Three times daily November 29, 2017 11:00pm December 16, 2017 9:12am x10 days as ordered per Dr. Nolascoofloxacin 500 mg oral tablet (2 sources)Quinolone AntimicrobialStart: 30-49-9220lbra 1 tablet by mouth once dailyCipro 500 mg Tab 500 mg = 1 tab(s), Oral, Daily, take one tab day before procedure and one tab after procedure, # 2 tab(s), Refills(s) 0, Pharmacy: [id number], 180, cm, 01/15/25 10:30:00 EDT, Height/Length Dosing Start Date: 01/15/25 Status: Ordered Quantity: 2.0 Unit: tab(s) Repeat number: 1 Start: 92-60-3402ktpk 1 tablet by mouth once dailyCipro 500 [...] oral capsule (11 sources)Penicillin-class AntibacterialStart: 06-01-2017 End: 19-43-0540elpn 1 capsule by mouth three times dailyDicloxacillin 500 mg Capsule Discontinued 500 MG PO Three times daily June 01, 2017 12:00am August 242017 9:21amdoxycycline hyclate 100 mg oral capsule (11 sources)Tetracycline-class DrugStart: 03-23-2019 End: 54-51-8629nyqm 1 capsule by mouth twice dailyDoxycycline Hyclate 100 mg capsule Discontinued 100 MG PO Twice daily 56 28 0 March 23, 2019 12:00am January 02, 2020 10:08amfenofibrate 145 mg oral tablet (20 sources)Peroxisome Proliferator Receptor alpha AgonistStart: 02-13-2023 End: 72-60-5641zpff 1 tablet by mouth once daily at bedtimeFenofibrate Nanocrystallized 145 mg Tablet Discontinued 145 MG PO Daily at bedtime 0 0 February 13, 2023 12:00am August 30, 2024 11:16amStart: 78-55-9583jtqt 160 mg by mouth once mg, Oral, DAILY, First dose on Wed06/23/22 at 0900, Until Discontinued Substituted for Fenofibrate (Non-Formulary Dose).Start: 12-07-2016 End: 70-87-0889Djwaxxspikd 150 mg Capsule Discontinued 145 MG PO Daily at bedtime December 06, 2016 11:00pm November 19, 2020 10:09am Hyperlipidemia Start: 12-07-2016 End: 38-66-9484vgun 145 mg by mouth once daily at bedtimeFenofibrate Discontinued 145 MG PO Daily at bedtime December 07, 2016 12:00am November 19, 2020 11:09amStart: 09-22-2016 End: 69-14-5508vhoz 1 tablet by mouth once daily at bedtimeFenofibrate Nanocrystallized 145 mg tablet Discontinued 145 MG PO Daily at bedtime November 18, 2020 11:00pm February 07, 2023 3:16pmferrous sulfate 325 mg oral tablet (12 sources)Start: 10-27-2022 End: 37-82-4359ojgo 1 tablet by mouth once dailyFerrous Sulfate 325 mg (65 mg iron) tablet Discontinued 325 MG PO Daily October 26, 2022 11:00pm May 04, 2023 11:25amStart: 86-88-4713iapr 1 tablet by mouth once daily at breakfast ferrous sulfate (IRON 325) 325 (65 Fe) MG tablet Take 1 tablet by mouth daily (with breakfast) 90 tablet 1 06/26/2022 Activegentamicin 0.001 mg/mg topical ointment (20 sources)Start: 11-23-2017 End: 01-34-7672Xivcatkqcn 0.1 % ointment Discontinued 1 APPLIC TOPICAL Daily 30 3 November 22, 2017 11:00pm May 19, 2018 11:36am apply to ulcers as directedStart: 04-08-2017 End: 74-72-9436Gitwpntery 0.1 % ointment Discontinued 1 APPLIC TOPICAL Daily 30 2 April 08, 2017 12:00am November 02, 2017 10:29am apply to sacral ulcer dailygentamicin (GARAMYCIN) 250 mg in sterile water for irrigation 250 mL irrigation (1 source)Start: 06-25-2022 End: 10-11-2939gmmtuwnjtz (GARAMYCIN) 250 mg in sterile water for irrigation 250 mL bykzlhbowv0058 ml glucose 500 mg/ml injection (1 source)Start: 06-22-2022 End: 04-55-6402zgovzoph 50 % IV solution1 ml heparin sodium, porcine 5000 unt/ml prefilled syringe (1 source)Unfractionated Heparin, Anti-coagulantStart: 78-44-8579dyqcnk 1 dose by subcutaneous injection three times daily5,000 Units, SubCUTAneous, EVERY 8 HOURS SCHEDULED (3 times per day), First dose on Wed06/22/22 at 2200, Until Discontinuedinsulin aspart (NOVOLOG) 100 UNIT/ML injection vial (3 sources) End: 51-46-7526afjplse aspart (NOVOLOG) 100 UNIT/ML injection vial Inject into the skin 3 times daily (before meals) Sliding scale 0 06/26/2022 Discontinued (Stop Taking at Discharge)insulin aspart (NOVOLOG) 100 UNIT/ML injection vial Inject into the skin 3 times daily (before meals) Sliding scale 0 Suspended insulin aspart, human 100 unt/ml injectable solution (16 sources)Insulin AnalogStart: 12-07-2016 End: 20-27-4782Syyenrq Aspart U-100 (Novolog) 100 unit/mL Solution Discontinued [...] source for Protocol det ails.Start: 12-07-2016 End: 95-48-9696juezxd 1 [IU] by subcutaneous injection three times daily at mealtimeInsulin Aspart U-100 (Novolog) 100 unit/mL Solution Discontinued 1 UNITS SUBCUT THREE TIMES DAILY WITH MEALS December 07, 2016 12:00am May 19, 2018 12:36pm Patient not sure of actual corrective scale but felt this was correct Please contact the information source for Protocol details.Start: 16-07-7224nrceyy 2 [IU] by subcutaneous injection three times [...] injectable solution (11 sources)Insulin AnalogStart: 04-13-2017 End: 06-57-6680hsfzjjw glargine (LANTUS) 100 UNIT/ML injection vial Inject 45 Units into the skin 2 times daily 1 vial 3 04/13/2017 06/26/2022 Discontinued (Stop Taking at Discharge)Start: 12-07-2016 End: 79-37-2791oqiflb 50 [IU] by subcutaneous injection twice dailyInsulin Glargine (Lantus) 100 unit/mL Solution Discontinued 50 UNITS SUBCUT Twice daily December 06, 2016 11:00pm September 08, 2022 10:16am DMStart: 18-79-1621dytjwi 40 [IU] by subcutaneous injection twice dailyinsulin glargine (LANTUS) 100 unit/mL injection Inject 40 Units under the skin 2 (two) times a day.10/14/2016 ActiveInsulin Glargine (Lantus) 100 unit/mL Solution (8 sources)Start: 12-07-2016 End: 22-47-5671jvwyae 50 [IU] by subcutaneous injection twice dailyInsulin Glargine (Lantus) 100 unit/mL Solution Discontinued 50 UNITS SUBCUT Twice daily December 06, 2016 11:00pm September 08, 2022 10:16amStart: 12-07-2016 End: 04-98-2299rbjjyo 50 [IU] by subcutaneous injection twice dailyInsulin Glargine (Lantus) 100 unit/mL Solution Discontinued 50 UNITS SUBCUT Twice daily December 07, 2016 12:00am September 08, 2022 11:16amStart: 11-86-3657euhlnq 50 [IU] by subcutaneous injection twice dailyInsulin Glargine (Lantus) 100 unit/mL Solution Active 50 UNITS SUBCUT Twice daily December 07, 2016 12:00amStart: 07-79-2369gdnddp 50 [IU] by subcutaneous injection twice dailyInsulin Glargine (Lantus) 100 unit/mL Solution Active 50 UNITS SUBCUT Twice daily December 06, 2016 11:00pm3 ml insulin lispro 100 unt/ml pen injector (5 sources)Insulin AnalogStart: 05-19-2018 End: 52-18-6265Jtkgjdw Lispro (Humalog Kwikpen Insulin) 100 unit/mL Insulin Pen Discontinued 0 .ROUTE .COMPLEX May 19, 2018 12:00am September 08, 2022 10:16am SLIDING SCALEInsulin Lispro (Humalog Kwikpen Insulin) 100 unit/mL Insulin Pen (6 sources)Start: 05-19-2018 End: 22-62-9341Wxqshvo Lispro (Humalog Kwikpen Insulin) 100 unit/mL Insulin Pen Discontinued 0 .ROUTE .COMPLEX May 19, 2018 12:00am September 08, 2022 10:16am SLIDING SCALEStart: 05-19-2018 End: 56-59-5084Hicdazk Lispro (Humalog Kwikpen Insulin) 100 unit/mL Insulin Pen Discontinued 0 .ROUTE .COMPLEX May 19, 2018 1:00am September 08, 2022 11:16am SLIDING SCALEinsulin, regular, human 100 unt/ml injectable solution (1 source)InsulinStart: 06-22-2022 End: 84-11-2455ivrodfq regular (HUMULIN R;NOVOLIN R) injection 10 Units levoFLOXacin 750 mg oral tablet (20 sources)Quinolone AntimicrobialStart: 10-10-2024 End: 49-08-4237yogd 1 tablet by mouth once dailyLevofloxacin 750 mg tablet Discontinued 750 MG PO Daily 7 7 0 October 09, 2024 11:00pm January 10:47am Local infection of wound Other injury of unspecified body region, initial encounter Local infection of the skin and subcutaneous tissue, unspecifiedStart: 02-13-2023 End: 88-72-6197larx 1 tablet by mouth once dailyLevofloxacin 750 mg Tablet Discontinued 750 MG PO Daily 6 0 February 13, 2023 12:00am May 04, 2023 11:23amStart: 12-01-2022 End: 90-40-0058igiv 1 tablet by mouth once dailyLevofloxacin 500 mg tablet Discontinued 500 MG PO Daily November 30, 2022 11:00pm February 07, 2023 3:16pmStart: 10-16-2021 End: 51-62-7220tqok 1 tablet by mouth once dailyLevofloxacin 750 mg Tablet Discontinued 750 MG PO Daily October 15, 2021 11:00pm November 18, 2021 10:49am x6 weeks, Called to pharmacy 09/09/2021nystatin 135516 unt/ml oral suspension (2 sources)Polyene AntifungalStart: 12-27-2024 End: 38-40-1127xmmy 1 mL by mouth four times dailyNystatin 100,000 unit/mL suspension Discontinued 5 ML PO Four times daily 140 7 0 December 26, 2024 11:00pm January 25, 2025 12:18pm swish and hr oxybutynin chloride 5 mg extended release oral tablet (20 sources)Cholinergic Muscarinic AntagonistStart: 02-13-2023 End: 59-91-8178kecj 1 tablet by mouth once dailyOxybutynin Chloride 5 mg Tablet Extended Release 24hr Discontinued 15 MG PO Daily 90 30 0 February 13, 2023 12:00am October 02, 2024 9:53am On Hold: not takingStart: 66-22-6702hwyv 15 mg by mouth once dailyOxybutynin Chloride Active 15 MG PO Daily 90 30 February 13, 2023 1:00amStart: 11-09-2022 End: 73-15-1371vjiq 1 tablet by mouth once dailyOxybutynin Chloride 15 mg tablet extended release 24hr Discontinued 15 MG PO Daily February 07, 2023 12:00am February 01, 2025 10:47amStart: 58-91-4905qrbstfldql 15 mg ER Tab Refills(s) 0 Start Date: 11/09/22 Status: OrderedStart: 03-23-2019 End: 99-09-3404suej 1 tablet by mouth once dailyOxybutynin Chloride 10 mg Tablet Extended Release 24hr Discontinued 10 MG PO Daily March 23, 2019 12:00am February 07, 2023 7:56ampolyethylene glycol 3350 39630 mg powder for oral solution (1 source)Osmotic LaxativeStart: 08-59-298293 g, Oral, DAILY PRN, Starting on Wed06/22/22 at 2018, Until Discontinued, Constipation First linetherapy for constipationpolyethylene glycol 3350 680766 mg / potassium chloride 2970 mg / sodium bicarbonate 6740 mg / sodium chloride 5860 mg / sodium sulfate 42670 mg powder for oral solution (1 source)Osmotic LaxativeStart: 06-25-2022 End: 14-36-1587jnyapujzuwlb glycol (GoLYTELY) solution 4,000 mLStart: 06-25-2022 End: 06-50-7916gtwoitujnjbr glycol (GoLYTELY) solution 4,000 mLrosuvastatin calcium 20 mg oral tablet (19 sources)HMG-CoA Reductase InhibitorStart: 06-07-2016 End: 53-02-5200uvkw 1 tablet by mouth once dailyRosuvastatin (Crestor) 20 mg Tablet Discontinued 20 MG PO Daily December 06, 2016 11:00pm March 23, 2019 11:03am Hyperlipidemiasilver sulfADIAZINE 10 mg/ml topical cream (11 sources)Sulfonamide AntibacterialStart: 09-22-2018 End: 71-15-7041Hkecvd Sulfadiazine (Silvadene) 1 % cream Discontinued 1 APPLIC TOPICAL Daily 400 0 September 21, 201811:00pm March 23, 2019 11:03am apply a 1.5 mm thicknesssodium polystyrene sulfonate 250 mg/ml oral suspension (1 source)Start: 06-22-2022 End: 25-83-5778inbuuw polystyrene (KAYEXALATE) 15 GM/60ML suspension 45 gsodium zirconium cyclosilicate 49876 mg powder for oral suspension (1 source)Start: 06-23-2022 End: 82-94-7017ptbjks zirconium cyclosilicate (LOKELMA) oral suspension 10 g sulfamethoxazole 800 mg / trimethoprim 160 mg oral tablet (20 sources)Dihydrofolate Reductase Inhibitor Antibacterial, Sulfonamide AntimicrobialStart: 04-07-2018 End: 16-98-9325aksx 1 tablet by mouth once dailySulfamethoxazole-Trimethoprim (Bactrim Ds) 800-160 mg Tablet Discontinued 1 TAB PO Daily April 07, 2018 12:00am November 18, 2021 10:49amStart: 06-22-2017 End: 37-12-5604ozmp 1 tablet by mouth twice dailySulfamethoxazole-Trimethoprim (Bactrim Ds) 800-160 mg Tablet Discontinued 1 TAB PO Twice daily June 21, 2017 11:00pm August 24, 2017 9:21amStart: 12-07-2016 End: 98-51-7823Txgfsuf Discontinued December 07, 2016 12:00am December 08, 2016 2:50pmStart: 12-07-2016 End: 10-66-3664Gkpvhav Discontinued December 06, 2016 11:00pm December 08, 2016 1:50pmtriamcinolone acetonide 5 mg/ml topical cream (9 sources)CorticosteroidStart: 02-07-2023 End: 19-35-3109Hgxcpvjjpqitx Acetonide 0.5 % cream Discontinued 0.5 APPLIC TOPICAL Three times daily February 07, 2023 12:00am May 04, 2023 11:25am Problems Active Problems Problem ClassificationProblemDateDocumented DateEpisodic/ChronicAllergic reactions (20 sources)Urticaria; Translations: [Urticaria, unspecified]Onset: 01-20-2024 49-20-2041DlbiungzEqgsihx kidney disease (20 sources)Chronic kidney disease; Translations: [Chronic kidney disease, unspecified]Onset: 579078-25-9762XzgvpilYdncgnc ulcer of skin (20 sources)Non-pressure chronic ulcer of skin of other sites with other specified severity; Translations: [Pressure ulcer of unspecified site, unspecified stage]Onset: 07-19-2013 Resolved: 220579-24-4352KhnrriwYxqhrgjnxont of device; implant or graft (20 sources)Injury of cauda equina ; Translations: [Injury of cauda equina, initial encounter]87-83-4868AndfsnfBlnrwczkxrvby of surgical procedures or medical care (1 source)Urethral stricture due to and following procedure; Translations: [Postprocedural urethral stricture, male, overlapping sites]Onset: 07-06-2022 82-31-3128HjpwkrsvNknxwzoazh and other anemia (6 sources)Iron deficiency anemia; Translations: [Iron deficiency anemia, unspecified]Onset: 84-53-3880PwarxkkuZmhnigxzbx and other anemia (3 sources)Ewbsfb45-80-8629IngfsxlrKonlbxbzoa and other anemia (9 sources)Microcytic anemia; Translations: [Iron deficiency anemia, unspecified]63-91-9234DzycuuwaBqvdcjvc mellitus with complications (20 sources)Type 2 diabetes mellitus with hyperglycemia; Translations: [Diabetic foot ulcer]Onset: 73-89-3420CyxunsjJrwmsnru mellitus without complication (20 sources)Diabetes mellitus; Translations: [Type 2 diabetes mellitus without complications]Onset: 546291-80-5874WatvtviJlaytpcd of white blood cells (2 sources)Elevated white blood cell count, unspecified; Translations: [Elevated white blood cell count, unspecified]Onset: 80-19-2021EggipnoKxoavwstt of lipid metabolism (20 sources)Mixed hyperlipidemia; Translations: [Mixed hyperlipidemia]Onset: 134061-60-4590PnobsnvOflgtbpmz hypertension (20 sources)Hypertensive disorder; Translations: [Essential (primary) hypertension]Onset: 998403-15-7417BrjorvdKxqzphq on above:d/t Vancomycin use affected kidneysGastritis and duodenitis (20 sources)Chronic superficial gastritis; Translations: [Chronic superficial 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]Onset: 015383-46-3355OhmxydrCoakkpqybyjjr symptoms and ill-defined conditions (20 sources)Incontinence without sensory awareness; Translations: [Incontinence without sensory awareness]Onset: 52-01-1172DdfyzbdBbrzzodbrllgd symptoms and ill-defined conditions (7 sources)Retention of urine; Translations: [Retention of urine, unspecified] Onset: 57-38-1795SoeqqnuxDstecrzuf arthritis and osteomyelitis (except that caused by tuberculosis or sexually transmitted disease) (20 sources)Osteomyelitis of right foot; Translations: [Osteomyelitis, unspecified]Onset: 12-25-2016 Resolved: 108602-56-1145FlqkpvaMdht disorders (20 sources)Depressive disorder; Translations: [Depression]Onset: 04-06-2023 92-46-2753SnqbhgtQynv wounds of extremities (18 sources)Open wound of lower limb with complication; Translations: [Unspecified open wound, unspecified knee, initial encounter]Onset: 02-25-2011 67-60-9015MrafmgudNwdlf diseases of bladder and urethra (9 sources)Neurogenic bladder; Translations: [Neuromuscular dysfunction of bladder, unspecified]Onset: 44-24-6373IxsmlzgMbmzz diseases of bladder and urethra (1 source)Neuromuscular dysfunction of bladder, unspecified; Translations: [Neuromuscular dysfunction of bladder, unspecified]Onset: 56-01-2012UeezkqqGkrqo diseases of bladder and urethra (2 sources)Neurogenic dysfunction of the urinary bladder; Translations: [Neuromuscular dysfunction of bladder,unspecified]Onset: 64-94-8384XcxqgrgLpglr diseases of bladder and urethra (5 sources)Male urethral stricture; Translations: [Unspecified urethral stricture, male, unspecified site]Onset: 74-81-0199XmgxddwgXunoh diseases of veins and lymphatics (2 sources)Vascular insufficiency; Translations: [Venous insufficiency (chronic) (peripheral)]53-74-5465HkggkzwjOhlis injuries and conditions due to external causes (11 sources)Injury of cauda equina ; Translations: [Injury of cauda equina, subsequent encounter]38-39-3312AxruxeyeVgrkw injuries and conditions due to external causes (3 sources)Local infection of wound; Translations: [Other injury of unspecified body region, initial encounter]87-87-2615IlmlfrowAfqms nervous system disorders (11 sources)Acute postoperative pain; Translations: [Other acute postprocedural pain]32-88-0077NowmqfpcDvyii non-traumatic joint disorders (6 sources)Pain in right hip; Translations: [Pain in joint, pelvic region and thigh]Onset: 22-27-2815AerxyfkjHldtx non-traumatic joint disorders (11 sources)Hip pain; Translations: [Pain in right hip]57-70-7716ZmegqfvaRkhyf nutritional; endocrine; and metabolic disorders (11 sources)Obesity; Translations: [Obesity, unspecified]92-93-8666QxfmttsQsjdp nutritional; endocrine; and metabolic disorders (5 sources)Morbid obesity; Translations: [Morbid (severe) obesity due to excess calories]Onset: 279143-52-3744MtkysyjHufon nutritional; endocrine; and metabolic disorders (15 sources)Severe obesity; Translations: [Class 2 severe obesity due to excess calories with serious comorbidity and body mass index (BMI) of 36.0 to 36.9 in adult ([facility])]Onset: 967446-00-8457QpdeblmOuffv screening for suspected conditions (not mental disorders or infectious disease) (5 sources)Electrocardiogram abnormal; Translations: [Abnormal electrocardiogram [ECG] [EKG]]Onset: 88-58-5773UyzkoenbOmzjh skin disorders (20 sources)Vesicular eczema; Translations: [Dyshidrosis [pompholyx]]Onset: 615630-29-2691AodzvvngVkcimtbda (20 sources)Cauda equina syndrome; Translations: [Cauda equina syndrome]Onset: 535056-57-6121OganeghLskyfovetj and visceral atherosclerosis (10 sources)Peripheral vascular disease, unspecified; Translations: [Peripheral arterial disease]Onset: 015197-76-3775XnbqzacGhcdrlrq codes; unclassified (3 sources)Sleep apgws94-11-6406CgsdoneHqaohgwg codes; unclassified (20 sources)Obstructive sleep apnea syndrome; Translations: [Obstructive sleep apnea (adult) (pediatric)]Onset: 509503-44-7612DpvhtpzQhqztenj codes; unclassified (11 sources)Pain; Translations: [Pain, unspecified]28-00-2847HxttnhyiMtfezloa codes; unclassified (5 sources)Bilateral lower limb edema; Translations: [Localized edema]08-30-2024 EpisodicResidual codes; unclassified (1 source)Localized edema; Translations: [Edema]37-64-6889BemotxluUzcj and subcutaneous tissue infections (20 sources)Cellulitis, unspecified; Translations: [Cellulitis]Onset: 02-25-2011 Resolved: 052216-95-1465WhvtsxbmKeryfagypxz; intervertebral disc disorders; other back problems (9 sources)Sacral back pain; Translations: [Sacrococcygeal disorders, not elsewhere classified]42-44-7615PpmfaidrNxgazxeyogtv (1 source)Patient encounter ozcsxa87-79-0711Brfsdec tract infections (20 sources)Recurrent urinary tract infection; Translations: [Urinary tract infection, site not specified]Onset: 209000-12-8723Cvsaajhv Past or Other Problems Problem ClassificationProblemDateDocumented DateEpisodic/ChronicAcute and unspecified renal failure (16 sources)Uadcm-cu-lpdazzr renal failure; Translations: [Acute kidney failure, unspecified]Onset: 746911-84-4860FyijsfnfPnqvopxli infection; unspecified site (15 sources)Infection due to enterococcus; Translations: [Enterococcus as the cause of diseases classified elsewhere]Onset: 487177-48-4453Pmwpiedn Deficiency and other anemia (1 source)Iron deficiency anemia, unspecified; Translations: [Iron deficiency anemia, unspecified]Onset: 58-05-1024DdtgmrgpTzzhj and electrolyte disorders (13 sources)Hyponatremia; Translations: [Hypo-osmolality and hyponatremia]Onset: 500481-70-7317KicvhwtiWdysb aftercare (20 sources)Long-term current use of drug therapy; Translations: [Other chcf (current) drug therapy]Onset: 420847-67-2140HbeoaemjXcjqv aftercare (5 sources)Patient encounter status; Translations: [Other chcf (current) drug therapy]Onset: 742203-99-3074RcurgwczYfrft aftercare (1 source)ferry terminal agent (current) use of insulin; Translations: [retirement (current) use of insulin]Onset: 82-67-3561MqywmrfqUhapy inflammatory condition of skin (20 sources)Pruritus, unspecified; Translations: [Unspecified pruritic disorder] Onset: 11-18-2023 Resolved: 243177-06-9372XtnypkmyPsgja injuries and conditions due to external causes (1 source)Injury of cauda equina, subsequent encounter; Translations: [Injury of cauda equina, subsequent encounter]Onset: 55-45-4434CmsjsbhvSsrko nervous system disorders (1 source)Other acute postprocedural pain; Translations: [Other acute postprocedural pain]Onset: 11-58-5494GggdfgbrFtnhfkvhjp (except in labor) (5 sources)Sepsis due to methicillin resistant Staphylococcus aureus; Translations: [Sepsis due to Methicillinresistant Staphylococcus aureus]Onset: 09-09-2016 Resolved: 408052-60-2249Pwexcaqu Results Test NameValueInterpretationReference RangeFacilityAmbulatory Visit Summaryon 77-75-6835Kkhzslsekz Visit SummaryAmbulatory Visit Summary GANGA STINSON :1960 [...] When: Comments: sched cysto/UD Where: [address] [place] [address] [place] [address] Medications What How Much When Instructions New ciprofloxacin (Cipro 500 mg Tab) 1 Tablets By Mouth Every day take one tab day before procedureand one tab after procedure Pickup at [facility] Unchanged amlodipine (amLODIPine 10 mg Tab) Contact [...] physician if questions or concerns Pharmacy Information [facility]: [address] [place], [place] [id number] [phone] Allergies omadacycline (Kidney pain) Problems Ongoing - [...] this condition may inclu (more content not included)...[facility]/Cl[facility] Noteon 23-86-7696Pqyhfki Office/Clinic NoteUrology Office/Clinic Note Chief Complaint Follow [...] Contact Information ALLEN NAZARIO, Jovanny Christie, URL [address] [place] [address] [place] [address] Additional Instructions: sched cysto/UD Patient Education Urethral [...] 01/01/2015 Recorded influenza virus vaccine, inactivated 01/10/2014 RecordedUC HealthComment on above:Result Comment: Electronically Signed By: Jovanny VILLA MD\.br\Date and Time Signed: 01/15/25 11:33 EDT\.br\Electronically Co-Signed By: Dia Serrato.br\Date and Time Co-Signed: 01/15/25 11:31 EDT Basophils Auto (Bld) [#/Vol]Ordered By: Jesus Hernandes on 83-57-4950Iesgjohdo (Bld) [#/Vol]0.0 10 3/uL0.0-0.1FMercy Health Anderson HospitalBasophils/100 WBC Auto (Bld)Ordered By: Jesus Hernandes on 01-32-4431Kkpavbkzn/100 WBC (Bld) 0.2 %0.2-2.0[facility] HospitalEosinophils/100 WBC Auto (Bld) Ordered By: Jesus Hernandes on 91-94-0934Rauzpseqykk/100 WBC (Bld)6.8 %0.9-7.0 [facility] HospitalErythrocyte distribution width Auto (RBC) [Ratio]Ordered By: Jesus Hernandes on 36-34-2436Acjdzprfzbb distribution width (RBC) [Ratio]14.6 %11.0-15.0[facility] HospitalGlomerular filtration rate (GFR) estimation in non- AmericanOrdered By: Jesus Hernandes on 02-80-9465WEL/1.73 sq M.predicted among non-blacks MDRD (S/P/Bld) [Vol rate/Area]28 mL/min/{1.73_m2}Low>=60 mL/min/1.73m 2FMercy Health Anderson HospitalHematocrit Auto (Bld) [Volume fraction]Ordered By: Jesus Hernandes on 13-06-7308Sheqyuayul (Bld) [Volume fraction]23.8 %Critically low 42.0-54.0[facility] HospitalComment on above:RESULTS CALLED TO Dr. HernandesHemoglobin [Mass/volume] in BloodOrdered By: Jesus Hernandes on 08-43-6204Jffychzwwx (Bld) [Mass/Vol]7.2 g/dLLow14.0-18.0[facility] HospitalLaboratory - Chemistry and Chemistry - challengeOrdered By: Jesus Hernandes on 40-79-4691Ewpsqzk [Mass/Vol]8.5 mg/dL8.5-10.1FMercy Health Anderson HospitalChloride [Moles/Vol]105 mmol/V84-061EmrhpinxyMercy Memorial HospitalCO2 [Moles/Vol]22.8 mmol/L21.0-32.0[facility] Creatinine [Mass/Vol]2.37 mg/dLHigh0.70-1.30[facility] GFR/1.73 sq M.predicted MDRD (S/P/Bld) [Vol rate/Area]34 mL/min/{1.73_m2}Low>=60 mL/min/1.73m 2FMercy Health Anderson HospitalGlucose [Mass/Vol]194 mg/dLHigh 74-106[facility] HospitalPotassium [Moles/Vol]5.0 mmol/L3.5-5.1 [facility] Hospitalodium [Moles/Vol]138 mmol/G573-873LorckeytmMercy Memorial HospitalUrea nitrogen [Mass/Vol]47.0 mg/dLHigh7.0-18.0[facility] HospitalUrea nitrogen/Creatinine [Mass ratio]19.8 mg/mgMercy Memorial HospitalLaboratory - Hematology and Cell countsOrdered By: Jesus Hernandes on 15-37-1549Gapatamg granulocytes/100 WBC (Bld)0.9 %High0.0-0.5 [facility] HospitalLeukocytes [#/volume] corrected for nucleated erythrocytes in Blood by Automated counOrdered By: Jesus Hernandes on 54-33-9221GQE corrected for nucl RBC Auto (Bld) [#/Vol]13.2 10 3/uLHigh4.0-11.0 [facility] HospitalLymphocytes Auto (Bld) [#/Vol]Ordered By: Jesus Hernandes on 81-12-6381Fwpfimfljys (Bld) [#/Vol]1.4 10 3/uL1.2-3.8[facility] HospitalLymphocytes/100 WBC Auto (Bld)Ordered By: Jesus Hernandes on 06-43-2840Wegqbqdzvxh/100 WBC (Bld)10.8 %Low20.5-60.0[facility] Auto (RBC) [Entitic mass]Ordered By: Jesus Hernandes on 80-44-2610IAM (RBC) [Entitic mass]24.9 pgLow25.9-34.0[facility] HospitalMCHC Auto (RBC) [Mass/Vol]Ordered By: Jesus Hernandes on 82-34-4001GQGJ (RBC) [Mass/Vol]30.3 g/dL29.9-35.2FMercy Health Anderson HospitalMCV Auto (RBC) [Entitic vol]Ordered By: Jesus Hernandes on 55-19-2145OYA (RBC) [Entitic vol]82.4 fL80.0-94.0[facility] HospitalMonocytes Auto (Bld) [#/Vol]Ordered By: Jesus Hernandes on 12-44-8624Atjxecadr (Bld) [#/Vol]1.1 10 3/uLHigh0.3-0.8[facility] HospitalMonocytes/100 WBC Auto (Bld)Ordered By: Jesus Hernandes on 33-00-8080Rdhkifgrw/100 WBC (Bld)8.1 % 1.7-12.0[facility] HospitalNeutrophils Auto (Bld) [#/Vol]Ordered By: Jesus Hernandes on 63-66-5643Wqfepsbrzyu (Bld) [#/Vol]9.6 10 3/uLHigh 1.4-6.5FMercy Health Anderson HospitalNeutrophils/100 WBC Auto (Bld)Ordered By: Jesus Hernandes on 07-21-2205Opsgwkdkctb/100 WBC (Bld)73.2 %43.0-75.0 [facility] HospitalNo Panel InformationOrdered By: Jesus Hernandes on 18-71-9930Ptamvfepxfq # (Auto)0.9 10 3/uLHigh0.0-0.7FMercy Health Anderson HospitalImmature Granulocyte # (Auto)0.12 10 3/uLHigh0.00-0.03 [facility] HospitalPlatelet mean volume Auto (Bld) [Entitic vol] Ordered By: Jesus Hernandes on 00-87-6502Msohzyap mean volume (Bld) [Entitic vol]8.7 fLLow9.5-13.5FMercy Health Anderson HospitalPlatelets Auto (Bld) [#/Vol]Ordered By: Jesus Lopezshasta on 78-37-2259Hzhmzhtoi (Bld) [#/Vol]383 10 3/fL430-994BftsxdcxpMercy Memorial HospitalRBC Auto (Bld) [#/Vol]Ordered By: Jesus Hernandes on 65-26-3467CJO (Bld) [#/Vol]2.89 10 6/uLLow4.70-6.10[facility] Hospitalerum or plasma anion gap determinationOrdered By: Jesus Hernandes on 14-92-2528Xmnxj gap [Moles/Vol]15.2 mmol/LFMercy Health Anderson HospitalPatient Letter FTon 59-39-4118Vcvqlhh Letter FTPatient Letter [facility] December 07, 2024 GANGA STINSON [address] [place] [address] : 1960 Dear Mr. Ganga Stinson, [facility], Dr. Jovanny Villa office has been trying to reach you concerning scheduling your annual bladder scope (cystoscopy) and urethral dilation at the [facility]. We have left several messages without a response. Please call the office as soon as possible so we can get you scheduled and continue to provide you with quality care. Sincerely, Jovanny Villa M.D., F.A.C.S. [facility] [address] [place], [place] [address] , option #3NoTuscarawas HospitalBasophils Auto (Bld) [#/Vol]Ordered By: Nina River on 19-74-3048Ytipllbfs (Bld) [#/Vol]0.1 10 3/uL0.0-0.1FMercy Health Anderson HospitalBasophils/100 WBC Auto (Bld)Ordered By: Nina Aleta on 88-24-4685Dbrxwdseu/100 WBC (Bld)0.5 %0.2-2.0[facility] HospitalEosinophils/100 WBC Auto (Bld)Ordered By: Nina River on 45-96-3669Ltjqmehczga/100 WBC (Bld)10.1 %High0.9-7.0[facility] HospitalErythrocyte distribution width Auto (RBC) [Ratio]Ordered By: Nina River on 50-89-4054Rmdmbldqrly distribution width (RBC) [Ratio]13.8 % 11.0-15.0[facility] HospitalGlomerular filtration rate (GFR) estimation in non- AmericanOrdered By: Nina River on 11-28-2024 GFR/1.73 sq M.predicted among non-blacks MDRD (S/P/Bld) [Vol rate/Area]43 mL/min/{1.73_m2}Low>=60 mL/min/1.73m 2FMercy Health Anderson Hospital Hematocrit Auto (Bld) [Volume fraction]Ordered By: Nina River on 11-28-2024 Hematocrit (Bld) [Volume fraction]25.0 %Low42.0-54.0[facility] HospitalHemoglobin [Mass/volume] in BloodOrdered By: Nina River on 11-28-2024 Hemoglobin (Bld) [Mass/Vol]8.0 g/dLLow14.0-18.0[facility] Iron binding capacity [Mass/volume] in Serum or PlasmaOrdered By: Nina River on 77-59-7536Pmfn binding capacity [Mass/Vol]114.0 ug/oEQfu448.0-450.0[facility] HospitalIron saturation [Mass Fraction] in Serum or Plasma Ordered By: Nina River on 81-93-4973Rrjt saturation [Mass fraction]21.1 % [facility] HospitalLaboratory - Chemistry and Chemistry - challengeOrdered By: Nina River on 30-52-4675Aowayar [Mass/Vol]8.3 mg/dLLow 8.5-10.1FMercy Health Anderson HospitalChloride [Moles/Vol]105 mmol/L98-107 [facility] HospitalCO2 [Moles/Vol]25.4 mmol/L21.0-32.0[facility] HospitalCreatinine [Mass/Vol]1.64 mg/dLHigh0.70-1.30[facility] HospitalFerritin [Mass/Vol]898.0 ng/oFHhsm87.0-388.0[facility] HospitalGFR/1.73 sq M.predicted MDRD (S/P/Bld) [Vol rate/Area]52 mL/min/{1.73_m2}Low>=60 mL/min/1.73m 2FMercy Health Anderson HospitalGlucose [Mass/Vol]323 mg/sUKznx28-052RrrmptlxfMercy Memorial HospitalIron [Mass/Vol] 24.0 ug/dLLow65.0-175.0[facility] HospitalPotassium [Moles/Vol]3.6 mmol/L3.5-5.1FLima City Hospitalodium [Moles/Vol]139 mmol/L 136-145[facility] HospitalUrea nitrogen [Mass/Vol]22.0 mg/dLHigh 7.0-18.0[facility] HospitalUrea nitrogen/Creatinine [Mass ratio] 13.4 mg/mgMercy Memorial HospitalLaboratory - Hematology and Cell countsOrdered By: Nina River on 26-33-8533MZB (Bld) [Velocity]125 mm/hHigh <=20[facility] HospitalImmature granulocytes/100 WBC (Bld)0.4 % 0.0-0.5Fire[facility] Medical CenterLeukocytes [#/volume] corrected for nucleated erythrocytes in Blood by Automated counOrdered By: Nina Aleta on 41-27-5125GPJ corrected for nucl RBC Auto (Bld) [#/Vol]12.5 10 3/uLHigh4.0-11.0 [facility] HospitalLymphocytes Auto (Bld) [#/Vol]Ordered By: Nina Aleta on 28-40-5479Vuwpbutncib (Bld) [#/Vol]1.5 10 3/uL1.2-3.8[facility] HospitalLymphocytes/100 WBC Auto (Bld)Ordered By: Nina Aleta on 21-80-2363Btqzjrximeu/100 WBC (Bld)12.1 %Low20.5-60.0[facility] SystemH Auto (RBC) [Entitic mass]Ordered By: Nina Aleta on 47-60-8795XJZ (RBC) [Entitic mass]26.1 pg25.9-34.0[facility] HospitalMCHC Auto (RBC) [Mass/Vol]Ordered By: Nina Aleta on 93-08-3169BYOP (RBC) [Mass/Vol]32.0 g/dL29.9-35.2FMercy Health Anderson HospitalMCV Auto (RBC) [Entitic vol]Ordered By: Nina Laeta on 76-18-9827XFF (RBC) [Entitic vol]81.4 fL80.0-94.0[facility] HospitalMonocytes Auto (Bld) [#/Vol]Ordered By: Nina Aleta on 78-98-3778Qzfrzgkfh (Bld) [#/Vol]1.0 10 3/uLHigh0.3-0.8[facility] HospitalMonocytes/100 WBC Auto (Bld) Ordered By: Nina Aleta on 64-26-8922Wgbazjxkh/100 WBC (Bld)7.7 %1.7-12.0 [facility] HospitalNeutrophils Auto (Bld) [#/Vol]Ordered By: Nina Aleta on 86-46-9299Iuukkicggft (Bld) [#/Vol]8.6 10 3/uLHigh1.4-6.5 [facility] HospitalNeutrophils/100 WBC Auto (Bld)Ordered By: Nina River on 18-93-8688Smnwaqacixa/100 WBC (Bld)69.2 %43.0-75.0[facility] HospitalNo Panel InformationOrdered By: Nina River on 49-71-0807K-Reactive Protein, Yzzbcgdffiec52.73 mg/dLHigh<=0.50[facility] HospitalEosinophils # (Auto)1.3 10 3/uLHigh0.0-0.7FMercy Health Anderson HospitalImmature Granulocyte # (Auto)0.05 10 3/uLHigh0.00-0.03 [facility] HospitalPlatelet mean volume Auto (Bld) [Entitic vol] Ordered By: Nina River on 04-88-8652Qihjetld mean volume (Bld) [Entitic vol] 9.0 fLLow9.5-13.5FMercy Health Anderson HospitalPlatelets Auto (Bld) [#/Vol] Ordered By: Nina Aleta on 17-22-9335Ufoyohzab (Bld) [#/Vol]331 10 3/uL 150-450Mer[facility] HospitalRBC Auto (Bld) [#/Vol]Ordered By: Nina Aleta on 00-75-2016HOD (Bld) [#/Vol]3.07 10 6/uLLow4.70-6.10[facility] Private Hospitalerum or plasma anion gap determinationOrdered By: Nina River on 51-63-6779Ekfte gap [Moles/Vol]12.2 mmol/LFMercy Health Anderson HospitalAerobic Cultureon 46-59-9125Knoqihx CultureComment Left Hip Tissue Culture ORGANISM: Strep [...] RESISTANT TO ALL B-LACTAM DRUGS. PERFORMED BY: [place] [address] PATHOLOGIST WEIGHT CLERK LEXA ELLIOTT M.D.[facility] Physician GroupComment on above: Performed By: #### AERC #### [address] StreetBasi Metabolic Panelon 61-15-7953Jyamjylmop Clr Calc Xfzchynw50.[address] [place] [address] Physician [facility] Women And InfantsComment on above:Result Comment: PERFORMED BY: [place] [address] PATHOLOGIST WEIGHT CLERK LEXA ELLIOTT M.D.Performed By: #### CBC, BMP #### [place] [address] USAGFR/1.73 sq M.predicted MDRD (S/P/Bld) [Vol rate/Area] 45.056 mL/min/{1.73_m2}NormalThe [facility] Physician GroupComment on above: Performed By: #### CBC, BMP #### [facility] [address] [place] [address] USABasophils [#/volume] in Blood by Automated countOrdered By: Rafi Cai on 94-95-5254Piqzyriyv (Bld) [#/Vol]0.1 10*3/uLNormal0.0-0.2 [facility] HospitalComment on above:Result Comment: PERFORMED BY: [facility] [address] [place] [address] PATHOLOGIST WEIGHT CLERK LEXA ELLIOTT M.D.Performed By: #### CBC, BMP #### [facility] [address] [place] [id number] USABasophils/100 leukocytes in Blood by Automated count Ordered By: Rafi Cai on 97-53-1695Zdwqwveck/100 WBC (Bld)0.6 %Normal. [facility] HospitalComment on above:Performed By: #### CBC, BMP #### [facility] [address] [place] [address] USACalcium [Mass/volume] in Serum or PlasmaOrdered By: Rafi Cai on 48-54-9827Cvmyusz [Mass/Vol]8.3 mg/dLLow8.6-10.3FMercy Health Anderson HospitalComment on above:Performed By: #### CBC, BMP #### [facility] [address] [place] [id number] USACapillary blood glucose measurement by glucometer (mass/volume)Ordered By: Cathy Brar on 54-03-4877Brcbuxa [Mass/Vol]74 mg/dL [facility] CenterComment on above:Random Glucose Reference Range is dependent [...] the diagnosis of Diabetes Mellitus. PERFORMED BY: [place] [address] PATHOLOGIST WEIGHT CLERK LEXA ELLIOTT M.D.Performed By: #### GLULS #### Point of Care testing ,Carbon dioxide, total [Moles/volume] in Serum or PlasmaOrdered By: Rafi Cai on 94-59-9696AC6 [Moles/Vol]24.7 mmol/PWkupju82.0-31.0Mercy Memorial HospitalComment on above:Performed By: #### CBC, BMP #### [place] [address] USAChloride [Moles/volume] in Serum or PlasmaOrdered By: Rafi Cai on 02-67-7277Hzoadoxg [Moles/Vol]109 mmol/FQxqv88-008UuburrgflMercy Memorial HospitalComment on above:Performed By: #### CBC, BMP #### [place] [address] USAComplete Blood Count Auto Diffon 26-76-3825Zuqk Corpuscular HGB Conc32.2 g/dLLow32.5-35.6The [facility] Physician GroupComment on above:Performed By: #### CBC, BMP #### [place] [address] USANRBC%0.0 /100{WBC}Normal0-0.5[facility] Comment on above:Performed By: #### CBC, BMP #### [place] [address] USAWhite Blood Count13.7 [CFU]/mLHigh4.1-10.5The [facility] Physician GroupComment on above:Performed By: #### CBC, BMP #### [place] [address] USACreatinine [Mass/volume] in Serum or PlasmaOrdered By: Rafi Cai on 78-25-9188Fhhvwemmxh [Mass/Vol]1.69 mg/dLHigh0.70-1.30 Mercy Memorial HospitalComment on above:Performed By: #### CBC, BMP #### [facility] [address] [place] [address] USAECG 12 lead ECGon 96-23-9833WTH 12 lead ECGREGENC[facility] Main [place] [address] [place] [id number] Electrocardiograph Report Signed Patient: Ganga Stinson MR#: [id number] : 1960 Acct:[id number] Age/Sex: 64 / M ADM Date: 10/02/24 Loc: [place] Room: Type: [facility] Attending Dr: Cathy Brar MD [...] change was found Confirmed by Jese Whitley ([id number]) on 10/02/2024 4:24:29 PM Referred By: Electronically Signed By: Jese Whitley Transcribed By: MUS Signed By Jese Whitley MD 10/02/[address] [place] [address] Physician GroupEosinophils [#/volume] in Blood by Automated countOrdered By: Rafi Cai on 17-35-7307Xzdetwegdfk (Bld) [#/Vol]1.2 10*3/uLHigh0.0-0.45Mercy Memorial HospitalComment on above: Performed By: #### CBC, BMP #### [facility] [address] [place] [address] USAEosinophils/100 leukocytes in Blood by Automated count Ordered By: Rafi Cai on 38-08-8635Nskmyerxxcs/100 WBC (Bld)8.7 %Normal. Mercy Memorial HospitalComment on above:Performed By: #### CBC, BMP #### [facility] [address] [place] [address] USAErythrocyte distribution width [Ratio] by Automated count Ordered By: Rafi Cai on 72-16-4929Kmzsngtecfs distribution width (RBC) [Ratio]15.3 %High12.0-14.8Mercy Memorial HospitalComment on above: Performed By: #### CBC, BMP #### [facility] [address] [place] [address] USAErythrocytes [#/volume] in Blood by Automated countOrdered By: Rafi Cai on 28-98-0213PIU (Bld) [#/Vol]2.89 10*6/uLLow3.90-5.60 Mer[facility] Memorial HospitalComment on above:Performed By: #### CBC, BMP #### [facility] [address] [place] [address] USAGLUCOSE POCT GLUCOMETERSon 04-41-0809Akhgksb [Mass/Vol]74 mg/dLNOAL HealthcareComment on above:Random Glucose Reference Range is dependent on time and content of last meal. Glucose of more than 200 mg/dL in a nonstressed, ambulatory subject supports the diagnosis of Diabetes Mellitus. NOMS TkdnjixjsaRPYWJIF9Niy0: Cleaned MeterNOMS HealthcareGlucose [Mass/Vol]77 mg/dLNOAL HealthcareComment on above:Random Glucose Reference Range is dependent on time and content of last meal. Glucose of more than 200 mg/dL in a nonstressed, ambulatory subject supports the diagnosis of Diabetes Mellitus. NOMS HealthcareGlucose Poct Glucometerson 06-37-2145Ordqrij6Fpk8: Cleaned Meter NormalHca Florida Raulerson Hospital Physician GroupComment on above:Result Comment: PERFORMED BY: [place] [address] PATHOLOGIST WEIGHT CLERK LEXA ELLIOTT M.D.Performed By: #### GLULS #### [...] Serum or PlasmaOrdered By: Rafi Cai on 70-24-8509Fgynftu [Mass/Vol]72 mg/cHNrqjfu90-113XuuazmhzkMercy Memorial HospitalComment on above:ADA recommended reference rangeRandom Glucose [...] reference rangePerformed By: #### CBC, BMP #### [facility] [address] [place] [id number] USAHematocrit [Volume Fraction] of Blood by Automated count Ordered By: Rafi Cai on 53-33-8983Dvotvtjodh (Bld) [Volume fraction]23.0 % Low38.8-50.0Mercy Memorial HospitalComment on above:Performed By: #### CBC, BMP #### [facility] [address] [place] [address] USAHemoglobin [Mass/volume] in BloodOrdered By: Rafi Cai on 82-96-6180Zbygsrnwxv (Bld) [Mass/Vol]7.4 g/dLLow13.0-17.0Mercy Memorial HospitalComment on above:Performed By: #### CBC, BMP #### [facility] [address] [place], [place] [address] USALon 10-02-2024L Specimen: [id number] Received: 10/02/24 Status: CINDYCandelaria Regulo Num: [id number] Spec Type: Surgical Subm Dr: Cathy Brar MD Tissues: A Debridement-Skin/Other Than Skin (PRODUCTS OF DEBRIDEMENT) Procedures: ISMA Gross/Micro L3 Age/ Patient Sex Location Account Attending Physician Ganga Stinson/Sam NM [id number] Cathy Brar MD SPEC NUM: [id number] RECD: 10/02/24 STATUS: ROSIO REGULO NUM: [id number] NAYLA: 10/02/[address] [facility] [address]: Cathy Brar MD ENTERED: 10/02/24 [facility] [address]: AMARILIS TYPE: Surgical DEPT: S ENTERED BY: [id number] RECV BY: [id number] ORDERED: Gianna ASHBY/Micro L3 ORDERED: Gianna ASHBY/Micro [...] to yellow, dull and uniform cut surfaces. Help Desk Coordinator sections are submitted in a single cassette. (1, , V11-8952 A) Microscopic Description Microscopic examination is performed. CPT Codes 60814 Specimen: [id number] Received: 10/02/24 Status: ROSIO Regulo Num: [id number] Spec Type: Surgical Subm Dr: Cathy Brar MD Tissues: A Debridement-Skin/Other Than Skin (PRODUCTS OF DEBRIDEMENT) Procedures: Gianna ASHBY/Margo L3 Patient: Ganga Stinson [id number] (Continued) Signed (signature on file) Zak Brasher MD 10/04/24 0918Normal [facility] Physician GroupLeukocytes [#/volume] corrected for nucleated erythrocytes in Blood by Automated counOrdered By: Rafi Cai on 10-02-2024 WBC corrected for nucl RBC Auto (Bld) [#/Vol]13.7 10*3/uLHigh4.1-10.5FMercy Health Anderson HospitalLeukocytes [#/volume] in Blood by Automated countOrdered By: Rafi Cai on 10-39-3880SGL (Bld) [#/Vol]13.7 10*3/uLHigh4.1-10.5 Mercy Memorial HospitalComment on above:Performed By: #### CBC, BMP #### [facility] [address] [place] [address] USALymphocytes [#/volume] in Blood by Automated countOrdered By: Rafi Cai on 32-48-5849Sbmuolmplle (Bld) [#/Vol]1.5 10*3/uLNormal 1.00-4.8Mercy Memorial HospitalComment on above:Performed By: #### CBC, BMP #### [facility] [address] [place], [place] [address] USALymphocytes/100 leukocytes in Blood by Automated count Ordered By: Rafi Cai on 12-30-9420Fixsbhywbfa/100 WBC (Bld)11.2 %Normal. Mercy Memorial HospitalComment on above:Performed By: #### CBC, BMP #### [facility] [address] [place] [id number] USAH [Entitic mass] by Automated countOrdered By: Rafi Cai on 93-15-6662PRR (RBC) [Entitic mass]25.6 pgLow27.5-35.2FMercy Health Anderson HospitalComment on above:Performed By: #### CBC, BMP #### [facility] [address] [place] [id number] USAMCHC Auto (RBC) [Mass/Vol]Ordered By: Rafi Cai on 02-46-1778QWXD (RBC) [Mass/Vol]32.2 g/dLLow32.5-35.6FMercy Health Anderson HospitalMCV [Entitic volume] by Automated countOrdered By: Rafi Cai on 59-08-0825NRR (RBC) [Entitic vol]79.5 fLLow83.5-101Mercy Memorial HospitalComment on above:Performed By: #### CBC, BMP #### [facility] [address] [place] [address] USAMonocytes [#/volume] in Blood by Automated countOrdered By: Rafi Cai on 62-47-0762Jywdfosyl (Bld) [#/Vol]1.1 10*3/uLHigh0.0-0.8 Mer[facility] Memorial HospitalComment on above:Performed By: #### CBC, BMP #### [facility] [address] [place] [address] USAMonocytes/100 leukocytes in Blood by Automated count Ordered By: Rafi Cai on 06-33-1787Qfdeubvtg/100 WBC (Bld)8.3 %Normal. Mercy Memorial HospitalComment on above:Performed By: #### CBC, BMP #### [place] [id number] USANeutrophils [#/volume] in Blood by Automated countOrdered By: Rafi Cai on 62-86-3089Kiwgbwxjwyg (Bld) [#/Vol]9.8 10*3/uLHigh1.8-7.7 [facility] Memorial HospitalComment on above:Performed By: #### CBC, BMP #### [facility] [address] [place] [address] USANeutrophils/100 leukocytes in Blood by Automated count Ordered By: Rafi Cai on 18-44-2726Wjijeumyhrf/100 WBC (Bld)71.2 %Normal. Mer[facility] Memorial HospitalComment on above:Performed By: #### CBC, BMP #### [address] [address] USANo Panel InformationOrdered By: Rafi Cai on 75-43-2437Qjbssrqsc GFR (CKD-EPI)45.056 mL/MinMercy Memorial Hospital Pharmacy Creatinine Clearance (Chem54.42Mercy Memorial HospitalNo Panel InformationOrdered By: Cathy Brar on 51-52-1722Fcsakxi Glucose Comment Glu2: cleaned [facility] Medical CenterNucleated erythrocytes [Presence] in Blood by Automated countOrdered By: Rafi Cai on 10-02-2024 Nucleated RBC Auto Ql (Bld)0.0 /100{WBC}0-0.5FMercy Health Anderson Hospital Platelet mean volume [Entitic volume] in Blood by Automated countOrdered By: Rafi Cai on 55-19-8193Udnidzhb mean volume (Bld) [Entitic vol]6.2 fLLow 6.6-10.1FMercy Health Anderson HospitalComment on above:Performed By: #### CBC, BMP #### [facility] [address] [place] [address] USAPlatelets [#/volume] in Blood by Automated countOrdered By: Rafi Cai on 13-24-9560Pqnbuzmqn (Bld) [#/Vol]339 10*3/eOAbffaa349-795 Mer[facility] Memorial HospitalComment on above:Performed By: #### CBC, BMP #### [facility] [address] [place] [address] USAPotassium [Moles/volume] in Serum or PlasmaOrdered By: Rafi Cai on 53-19-7102Ftauoqwqv [Moles/Vol]3.7 mmol/LNormal3.5-5.1 [facility] Memorial HospitalComment on above:Performed By: #### CBC, BMP #### [facility] [address] [place] [address] USASerum or plasma anion gap determinationOrdered By: Rafi Cai on 92-13-0351Kkesd gap [Moles/Vol]8.0 mmol/LNormal6.0-15.0Mercy Memorial HospitalComment on above:Performed By: #### CBC, BMP #### [facility] [address] [place] [address] USASodium [Moles/volume] in Serum or PlasmaOrdered By: Rafi Cai on 83-17-2362Mpejso [Moles/Vol]138 mmol/CHtgfcj714-318YmghmqpbdMercy Memorial HospitalComment on above:Performed By: #### CBC, BMP #### [facility] [address] [place] [id number] USAUrea nitrogen [Mass/volume] in Serum or PlasmaOrdered By: Rafi Cai on 10-18-2142Fvqg nitrogen [Mass/Vol]25 mg/dLNormal7-25Mercy Memorial HospitalComment on above:Performed By: #### CBC, BMP #### [facility] [address] [place] [address] USAALL CBC WITH AUTO DIFFon 49-96-9689MLDMKSUBC ABSOLUTE AUTO 0NOAL HealthcareBasophils/100 WBC (Bld)0.3 %0.2 - 2.0 %[facility] Eosinophils/100 WBC (Bld)9.5 %High0.9 - 7.0 %[facility] Health ServicesErythrocyte distribution width (RBC) [Ratio]14.3 %11.0 - 15.0 %[facility] Health ServicesHematocrit (Bld) [Volume fraction]23.2 %Critically low42.0 - 54.0 %[facility] Health ServicesComment on above:RESULTS CALLED TO CHEYENNE HUDSON RNHemoglobin (Bld) [Mass/Vol]7.4 g/dLLow 14.0 - 18.0 g/dLHeartland Behavioral Health ServicesIMMATURE GRANULOCYTES ABS AUTO0.07HighNOOzarks Community HospitalImmature granulocytes/100 WBC (Bld)0.5 %0.0 - 0.5 %[facility] Interpretation and review of laboratory resultsAbnormalNOOzarks Community Hospital LYMPHOCYTES ABSOLUTE AUTO1.8NOMS [facility] North HospitalLymphocytes/100 WBC (Bld)13.3 %Low 20.5 - 60.0 %[facility] Medical CenterH (RBC) [Entitic mass]26.6 pg25.9 - 34.0 pgNOOzarks Community HospitalMCHC (RBC) [Mass/Vol]31.9 g/dL29.9 - 35.2 g/dLHeartland Behavioral Health ServicesMCV (RBC) [Entitic vol]83.5 fL80.0 - 94.0 fLNOOzarks Community HospitalMONOCYTES ABSOLUTE AUTO1.1High NOMS HealthcareMonocytes/100 WBC (Bld)7.8 %1.7 - 12.0 %[facility] Healthcare NEUTROPHILS ABSOLUTE AUTO9.3HighNOAL HealthcareNeutrophils/100 WBC (Bld)68.6 % 43.0 - 75.0 %[facility] HealthcarePlatelet mean volume (Bld) [Entitic vol]8.8 fLLow9.5 - 13.5 fLHeartland Behavioral Health ServicesTBH EO #1.3HighNOOzarks Community HospitalTB [id number] Regional Hospital RBC2.78LowNORusk Rehabilitation Center WBC13.5HighHeartland Behavioral Health ServicesCLINISYNCNOMS HealthcareALL CBC WITH AUTO DIFFon 63-58-0552VDHDMCZFK ABSOLUTE AUTO0.1NOMS HealthcareBasophils/100 WBC (Bld)0.4 %0.2 - 2.0 %NOM HealthcareEosinophils/100 WBC (Bld)9 %High0.9 - 7.0 %[facility] Health ServicesErythrocyte distribution width (RBC) [Ratio]14.5 %11.0 - 15.0 %[facility] Health ServicesHematocrit (Bld) [Volume fraction]23.8 %Critically low42.0 - 54.0 %[facility] HealthcareComment on above:RESULTS CALLED TO ANGELICA RUBALCAVA RN at 1219Hemoglobin (Bld) [Mass/Vol]7.4 g/dLLow14.0 - 18.0 g/dLHeartland Behavioral Health ServicesIMMATURE GRANULOCYTES ABS AUTO0.08HighNOOzarks Community HospitalImmature granulocytes/100 WBC (Bld)0.6 %High0.0 - 0.5 %[facility] ServicesInterpretation and review of laboratory resultsAbnormalHeartland Behavioral Health ServicesLYMPHOCYTES ABSOLUTE AUTO1.6 NOMCarondelet HealthLymphocytes/100 WBC (Bld)12.9 %Low20.5 - 60.0 %[facility]ison Medical CenterH (RBC) [Entitic mass]26.3 pg25.9 - 34.0 pgNOCox Walnut LawnHC (RBC) [Mass/Vol] 31.1 g/dL29.9 - 35.2 g/dLMadison Medical CenterV (RBC) [Entitic vol]84.7 fL80.0 - 94.0 fLHeartland Behavioral Health ServicesMONOCYTES ABSOLUTE AUTO0.9HighNOMS HealthcareMonocytes/100 WBC (Bld)7.2 %1.7 - 12.0 %NOMS HealthcareNEUTROPHILS ABSOLUTE AUTO8.9HighNOMS HealthcareNeutrophils/100 WBC (Bld)69.9 %43.0 - 75.0 %NOMS HealthcarePlatelet mean volume (Bld) [Entitic vol]8.7 fLLow9.5 - 13.5 fLNOMS HealthcareTBH EO #1.2 HighNOMS HealthcareTBH [id number] HealthcareTBH RBC2.81LowNOMS HealthcareTBH WBC 12.7HighNOMS HealthcareCLINISYNCNOMS HealthcareUS ankle/arm indiceson 09-05-2024 US ankle/arm indicesMercy Health St. [facility] Vascular [address] [place] [address] Ultrasound Report Signed Patient: Ganga Stinson MR#: [id number] : 1960 Acct:[id number] Age/Sex: 64 / M ADM Date: 08/30/24 Loc: [facility] Room: Type: [facility] Attending Dr: Jesusita Navarro MD Ordering [...] Navarro MD,FACS,FSVS 09/05/2024 12:35 PM Dictation Location: [place] [address] Tech: Livia Hawk Transcribed By: MARYANN 09/05/24 1235 Dictated By: Jesusita Navarro MD 09/05/24 1234 Signed By: 09/05/24 1235[facility] Physician GroupALL CBC WITH AUTO DIFFon 21-53-6492UQPZJBQSP ABSOLUTE AUTO0.1NOMS HealthcareBasophils/100 WBC (Bld)0.4 % 0.2 - 2.0 %[facility] ServicesEosinophils/100 WBC (Bld)5 %0.9 - 7.0 %[facility] Erythrocyte distribution width (RBC) [Ratio]14.3 %11.0 - 15.0 %[facility] Hematocrit (Bld) [Volume fraction]23.4 %Critically low42.0 - 54.0 %[facility] Health ServicesComment on above:RESULTS CALLED TO ANGELICA RUBALCAVA, RNHemoglobin (Bld) [Mass/Vol]7.3 g/dLLow14.0 - 18.0 g/dLHeartland Behavioral Health ServicesIMMATURE GRANULOCYTES ABS AUTO0.06HighNOOzarks Community HospitalImmature granulocytes/100 WBC (Bld)0.4 %0.0 - 0.5 % [facility] ServicesInterpretation and review of laboratory resultsAbnormalHeartland Behavioral Health ServicesLYMPHOCYTES ABSOLUTE AUTO1.6NOMS [facility] North HospitalLymphocytes/100 WBC (Bld) 11.5 %Low20.5 - 60.0 %[facility] Medical CenterH (RBC) [Entitic mass]26 pg25.9 - 34.0 pg [facility] ServicesMCHC (RBC) [Mass/Vol]31.2 g/dL29.9 - 35.2 g/dLHeartland Behavioral Health ServicesMCV (RBC) [Entitic vol]83.3 fL80.0 - 94.0 fLHeartland Behavioral Health ServicesMONOCYTES ABSOLUTE AUTO 1.1HighNOOzarks Community HospitalMonocytes/100 WBC (Bld)8.2 %1.7 - 12.0 %[facility] NEUTROPHILS ABSOLUTE AUTO10.3HighHeartland Behavioral Health ServicesNeutrophils/100 WBC (Bld)74.5 % 43.0 - 75.0 %[facility] ServicesPlatelet mean volume (Bld) [Entitic vol]8.9 fLLow9.5 - 13.5 fLHeartland Behavioral Health ServicesTB EO #0.7NOOzarks Community HospitalTB RHT448OMTNOzarks Community HospitalTB RBC2.81LowFreeman Health System WBC13.8HighHeartland Behavioral Health ServicesCLINISYNCNCox South ALL CBC WITH AUTO DIFFon 12-20-8604SPMPTKJRY ABSOLUTE AUTO0.1NOMS [facility] Basophils/100 WBC (Bld)0.4 %0.2 - 2.0 %NOMS [facility] North HospitalEosinophils/100 WBC (Bld) 5.1 %0.9 - 7.0 %[facility] Health ServicesErythrocyte distribution width (RBC) [Ratio]15.3 %High11.0 - 15.0 %[facility] ServicesHematocrit (Bld) [Volume fraction]22.9 % Critically low42.0 - 54.0 %[facility] HealthcareComment on above:RESULTS CALLED TO KRZYSZTOF FREED RNHemoglobin (Bld) [Mass/Vol]6.9 g/dLCritically low14.0 - 18.0 g/dLHeartland Behavioral Health ServicesComment on above:RESULTS CALLED TO KRZYSZTOF FREED RNIMMATURE GRANULOCYTES ABS AUTO0.05HighHeartland Behavioral Health ServicesImmature granulocytes/100 WBC (Bld) 0.4 %0.0 - 0.5 %[facility] ServicesInterpretation and review of laboratory results AbnormalNOOzarks Community HospitalLYMPHOCYTES ABSOLUTE AUTO1.3NOOzarks Community Hospital Lymphocytes/100 WBC (Bld)10.2 %Low20.5 - 60.0 %[facility]ison Medical CenterH (RBC) [Entitic mass]24.7 pgLow25.9 - 34.0 pgMadison Medical CenterHC (RBC) [Mass/Vol]30.1 g/dL29.9 - 35.2 g/dLMadison Medical CenterV (RBC) [Entitic vol]82.1 fL80.0 - 94.0 fLHeartland Behavioral Health ServicesMONOCYTES ABSOLUTE AUTO1.1HighHeartland Behavioral Health ServicesMonocytes/100 WBC (Bld) 8.1 %1.7 - 12.0 %[facility] ServicesNEUTROPHILS ABSOLUTE AUTO9.9HighHeartland Behavioral Health Services Neutrophils/100 WBC (Bld)75.8 %High43.0 - 75.0 %[facility] Health ServicesPlatelet mean volume (Bld) [Entitic vol]8.9 fLLow9.5 - 13.5 fLHeartland Behavioral Health ServicesTB EO #0.7NOMS [facility] North HospitalTB DBE782FJBCRusk Rehabilitation Center RBC2.79LowNORusk Rehabilitation Center WBC13.1High [facility] ServicesCLINISYNCNCox SouthALL CBC WITH AUTO DIFFon 03-10-2024 BASOPHILS ABSOLUTE AUTO0.1NOMS HealthcareBasophils/100 WBC (Bld)0.6 %0.2 - 2.0 % [facility] ServicesEosinophils/100 WBC (Bld)8.8 %High0.9 - 7.0 %[facility] Erythrocyte distribution width (RBC) [Ratio]14 %11.0 - 15.0 %[facility] Hematocrit (Bld) [Volume fraction]26.9 %Low42.0 - 54.0 %[facility] Hemoglobin (Bld) [Mass/Vol]8.1 g/dLLow14.0 - 18.0 g/dLHeartland Behavioral Health ServicesIMMATURE GRANULOCYTES ABS AUTO0.12HighNOOzarks Community HospitalImmature granulocytes/100 WBC (Bld) 0.9 %High0.0 - 0.5 %[facility] ServicesInterpretation and review of laboratory resultsAbnormalHeartland Behavioral Health ServicesLYMPHOCYTES ABSOLUTE AUTO1.6NOMS [facility] Lymphocytes/100 WBC (Bld)12.2 %Low20.5 - 60.0 %[facility]ison Medical CenterH (RBC) [Entitic mass]24.9 pgLow25.9 - 34.0 pgHeartland Behavioral Health ServicesMCHC (RBC) [Mass/Vol]30.1 g/dL29.9 - 35.2 g/dLHeartland Behavioral Health ServicesMCV (RBC) [Entitic vol]82.8 fL80.0 - 94.0 fLHeartland Behavioral Health ServicesMONOCYTES ABSOLUTE FUTV3UdvhIAON HealthcareMonocytes/100 WBC (Bld)7.3 %1.7 - 12.0 %[facility] ServicesNEUTROPHILS ABSOLUTE AUTO9.3HighHeartland Behavioral Health Services Neutrophils/100 WBC (Bld)70.2 %43.0 - 75.0 %[facility] Health ServicesPlatelet mean volume (Bld) [Entitic vol]8.9 fLLow9.5 - 13.5 fLHeartland Behavioral Health ServicesTB EO #1.2HighNOOzarks Community HospitalTB [id number] [facility] North HospitalTB RBC3.25LowNORusk Rehabilitation Center WBC13.2High [facility] Health ServicesCLINISYNCNOMS HealthcareECG 12-LEADon 82-32-6193Zqw[address] [address] Electrocardiograph Report Signed Patient: GANGA STINSON MR#: [id number] : 1960 Acct:[id number] Age/Sex: 63 / M ADM Date: 03/10/24 Loc: PST Attending Dr: Jesus Hernandes D.P.M. Ordering Physician: Jesus Hernandes D.P.M. Date of Service: 03/10/24 Procedure(s): ECG 12 lead Accession Number(s): [id number] cc: [facility] Test Date: 2024-03-10 Pat Name: GANGA STINSON Department: Room: - Gender: Male [employer] Unit Fe[employer]: : 1960 Requested By: JESUS HERNANDES Order Number: [id number] Reading MD: AVELINO CASTANON Measurements Intervals Hunt Rate: 53 P: 86 AL: 179 QRS: 8 QRSD: 110 T: 34 QT: 451 QTc: 425 Interpretive Statements SINUS BRADYCARDIA Compared to ECG 11/25/2022 10:12:24 Sinus rhythm no longer present Electronically Signed On 03-10-2024 17:24:37 EST by AVELINO CASTANON Dictated By: Avelino Castanon D.O. Signed By: 03/10/24 1724 DD/ 1037 TD/TT: Carpenter Supervisor:TBHRadiology, Radiologist, MD - 03/10/2024 [place] [address] Electrocardiograph Report Signed Patient: GANGA STINSON MR#: [id number] : 1960 Acct:[id number] Age/Sex: 63 / M ADM Date: 03/10/24 Loc: PST Attending Dr: Jesus Hernandes D.P.M. Ordering Physician: Jesus Hernandes D.P.M. Date of Service: 03/10/24 Procedure(s): ECG 12 lead Accession Number(s): [id number] cc: [facility] Test Date: 2024-03-10 Pat Name: GANGA STINSON Department: Room: - Gender: Male Spr[employer] Unit Feeder: : 1960 Requested By: JESUS HERNANDES Order Number: [id number] Reading MD: AVELINO CASTANON Measurements Intervals Hunt Rate: 53 P: 86 AL: 179 QRS: 8 QRSD: 110 T: 34 QT: 451 QTc: 425 Interpretive Statements SINUS BRADYCARDIA Compared to ECG 11/25/2022 10:12:24 Sinus rhythm no longer present Electronically Signed On 03-10-2024 17:24:37 EST by AVELINO CASTANON Dictated By: Avelino Castanon D.O. Signed By: 03/10/24 1724 DD/ 1037 TD/TT: Carpenter Supervisor: DAISY HealthcareRadiology Study observation (narrative)[facility] HealthcareECG 12-LEAD Ordered By: Radiologist Radiology on 40-88-9101PXPM Healthcare Work Phone: SEGMENTAL BLOOD PRESSUREon 55-92-3060FvbWilliams[place] [address] Vein Report Signed Patient: GANGA STINSON MR#: [id number] : 1960 Acct:[id number] Age/Sex: 63 / M ADM Date: 03/06/24 Loc: [facility] Attending Dr: Jesus Hernandes D.P.M. Ordering Physician: Jesus Hernandes D.P.M. Date of Service: 03/06/24 Procedure(s): VC SEGMENTAL PRESSURES Accession Number(s): [id number] cc: Jesus Hernandes D.P.M.; Fidel Abbott M.D. [place] [id number] Patient Name: GANGA STINSON MRN: TBH:[id number] date: 1960 Sex: M Assigned Patient Location: Current Patient Location: Accession/Order Number: [id number] Exam Date: 03/06/2024 11:00 Report Date: 03/06/2024 [...] M.D. Signed By: 03/06/241415 DD/ 12 TD/TT: Carpenter Supervisor:ISAadiologlowell, Radiologist, - 03/06/2024 [place] [address] Vein Report Signed Patient: GANGA STINSON MR#: [id number] : 1960 Acct:[id number] Age/Sex: 63 / M ADM Date: 03/06/24 Loc: [facility] Attending Dr: Jesus Hernandes D.P.M. Ordering Physician: Jesus Hernandes D.P.M. Date of Service: 03/06/24 Procedure(s): VC SEGMENTAL PRESSURES Accession Number(s): [id number] cc: Jesus Hernandes D.P.M.; Fidel Abbott M.D. [place] [address] Patient Name: GANGA STINSON MRN: TBH:[id number] date: 1960 Sex: M Assigned Patient Location: Current Patient Location: Accession/Order Number: [id number] Exam Date: 03/06/2024 11:00 Report Date: 03/06/2024 [...] Signed By: 03/06/24 141 DD/ 12 TD/TT: Carpenter Supervisor: DAISY HealthcareRadiology Study observation (narrative)DAISY [facility] HospitalSEUPPER [facility] BLOOD PRESSUREOrdered By: Radiologist Radiology on 82-12-2730FLNOHeartland Behavioral Health Services Work Phone: aLL SED RATEon 93-57-8197Luemiwzclqyznb and review of laboratory resultsAbnormalHeartland Behavioral Health ServicesTBH SED [id number] Healthcare CLINISYNCHeartland Behavioral Health ServicesBasic Metabolic Panelon 87-05-9073Qajty gap [Moles/Vol] 9.9 mmol/LNormal6.0-15.0The [facility] Physician GroupComment on above:Performed By: #### CBC, BMP #### [place] [address] USACalcium [Mass/Vol]7.6 mg/dLLow8.6-10.3The [facility] Physician GroupComment on above:Performed By: #### CBC, BMP #### [facility] [address] [place] [address] USAChloride [Moles/Vol]106 mmol/NEibopp69-022Smt [facility] Physician GroupComment on above:Performed By: #### CBC, BMP #### [facility] [address] [id number] USACO2 [Moles/Vol]26.1 mmol/PAtvftw92.0-31.0The [facility] Physician GroupComment on above:Performed By: #### CBC, BMP #### [facility] [address] [id number] USACreatinine [Mass/Vol]1.59 mg/dLHigh0.70-1.30The [facility] Physician GroupComment on above:Performed By: #### CBC, BMP #### [facility] [address] [id number] USAGFR/1.73 sq M.predicted MDRD (S/P/Bld) [Vol rate/Area] 48.779 mL/min/{1.73_m2}NormalThe [facility] Physician GroupComment on above: Performed By: #### CBC, BMP #### [facility] [address] [place] [address] USAGlucose [Mass/Vol]128 mg/iACmvt12-038Hdr [facility] Physician GroupComment on above:Result Comment: Random Glucose Reference Range is dependent on time and content of last meal. Glucose of more than 200 mg/dL in a nonstressed, ambulatory subject supports the diagnosis of Diabetes Mellitus. ADA recommended reference rangePerformed By: #### CBC, BMP #### [facility] [address] [place] [address] USAPotassium [Moles/Vol]4.0 mmol/LNormal3.5-5.1The [facility] Physician GroupComment on above:Performed By: #### CBC, BMP #### [facility] [address] [place] [address] USASodium [Moles/Vol]138 mmol/YBsmvft206-122Sjr [facility] Physician GroupComment on above:Performed By: #### CBC, BMP #### [facility] [address] [place] [address] USAUrea nitrogen [Mass/Vol]24 mg/dLNormal7-25The [facility] Physician GroupComment on above:Performed By: #### CBC, BMP #### [facility] [address] [place] [address] USABasophils Auto (Bld) [#/Vol]Ordered By: Nina River on 95-71-8056Vmolvmvul (Bld) [#/Vol]Automated basophil count0.0-0.2FMercy Health Anderson HospitalBasophils/100 WBC Auto (Bld)Ordered By: Nina Aleta on 26-39-4487Obbkbmaqp/100 WBC (Bld)Automated basophil %.Mercy Memorial HospitalC reactive protein [Mass/volume] in Serum or PlasmaOrdered By: Nina River on 73-13-2819CVB [Mass/Vol]C reactive protein [Mass/volume] in Serum or PlasmaHigh0.0-0.5FMercy Health Anderson HospitalC-Reactive Proteinon 58-74-5802W-Reactive Oztoqjm49.7 mg/dLHigh0.0-0.5The [facility] Comment on above:Performed By: #### CBC, BMP #### [facility] [address] [place] [address] USACalcium [Mass/volume] in Serum or PlasmaOrdered By: Nina River on 24-50-5723Wilhpub [Mass/Vol]Calcium [Mass/volume] in Serum or PlasmaLow8.6-10.3FMercy Health Anderson HospitalCarbon dioxide, total [Moles/volume] in Serum or PlasmaOrdered By: Nina River on 44-83-7947DH4 [Moles/Vol]Carbon dioxide, total [Moles/volume] in Serum or Gyfatf34.0-31.0 [facility] Memorial HospitalChloride [Moles/volume] in Serum or Plasma Ordered By: Nina River on 43-30-8071Lhpdnxuq [Moles/Vol]Chloride [Moles/volume] in Serum or Ijhbnz57-745FmlqwtokwMercy Memorial HospitalComplete Blood Count Auto Diffon 03-22-7965Xrpbwtvkc (Bld) [#/Vol]0.0 10*3/uLNormal 0.0-0.2The [facility] Physician GroupComment on above:Performed By: #### CBC, BMP, FE PRO, B12, ESR, CRP #### [facility] [address] [place] [address] USABasophils/100 WBC (Bld)0.4 %Normal.The [facility] Physician GroupComment on above:Performed By: #### CBC, BMP, FE PRO, B12, ESR, CRP #### [facility] [address] [place] [address] USAEosinophils (Bld) [#/Vol]0.2 10*3/uLNormal0.0-0.45The [facility] Physician GroupComment on above:Performed By: #### CBC, BMP, FE PRO, B12, ESR, CRP #### [facility] [address] [place] [address] USAEosinophils/100 WBC (Bld)2.4 %Normal.The [facility] Physician GroupComment on above:Performed By: #### CBC, BMP, FE PRO, B12, ESR, CRP #### [place] [address] USAErythrocyte distribution width (RBC) [Ratio]15.2 %High 12.0-14.8The [facility] Physician GroupComment on above:Performed By: #### CBC, BMP, FE PRO, B12, ESR, CRP #### [place] [address] USAHematocrit (Bld) [Volume fraction]23.1 %Low38.8-50.0The [facility] Physician GroupComment on above:Performed By: #### CBC, BMP, FE PRO, B12, ESR, CRP #### [place] [address] USAHemoglobin (Bld) [Mass/Vol]7.8 g/dLLow13.0-17.0The [facility] Physician GroupComment on above:Performed By: #### CBC, BMP, FE PRO, B12, ESR, CRP #### [place] [address] USALymphocytes (Bld) [#/Vol]0.7 10*3/uLLow1.00-4.8The [facility] Physician GroupComment on above:Performed By: #### CBC, BMP, FE PRO, B12, ESR, CRP #### [place] [address] USALymphocytes/100 WBC (Bld)7.0 %Normal.The [facility] Physician GroupComment on above:Performed By: #### CBC, BMP, FE PRO, B12, ESR, CRP #### [place] [address] USAMCH (RBC) [Entitic mass]26.8 pgLow27.5-35.2The [facility] Physician GroupComment on above:Performed By: #### CBC, BMP, FE PRO, B12, ESR, CRP #### [place] [address] USAMCV (RBC) [Entitic vol]79.5 fLLow83.5-101The [facility] Physician GroupComment on above:Performed By: #### CBC, BMP, FE PRO, B12, ESR, CRP #### [place] [address] USAMean Corpuscular HGB Conc33.7 g/tUEupljj20.5-35.6The [facility] Physician GroupComment on above:Performed By: #### CBC, BMP, FE PRO, B12, ESR, CRP #### [place] [address] USAMonocytes (Bld) [#/Vol]0.5 10*3/uLNormal0.0-0.8The [facility] Physician GroupComment on above:Performed By: #### CBC, BMP, FE PRO, B12, ESR, CRP #### [place] [address] USAMonocytes/100 WBC (Bld)4.8 %Normal.The [facility] Physician GroupComment on above:Performed By: #### CBC, BMP, FE PRO, B12, ESR, CRP #### [place] [address] USANeutrophils (Bld) [#/Vol]9.0 10*3/uLHigh1.8-7.7The [facility] Physician GroupComment on above:Performed By: #### CBC, BMP, FE PRO, B12, ESR, CRP #### [place] [address] USANeutrophils/100 WBC (Bld)85.4 %Normal.The [facility] Physician GroupComment on above:Performed By: #### CBC, BMP, FE PRO, B12, ESR, CRP #### [place] [address] USANRBC%0.0 /100{WBC}Normal0-0.5The [facility] Comment on above:Performed By: #### CBC, BMP, FE PRO, B12, ESR, CRP #### [place] [address] USAPlatelet mean volume (Bld) [Entitic vol]6.7 fLNormal 6.6-10.1The [facility] Physician GroupComment on above:Performed By: #### CBC, BMP, FE PRO, B12, ESR, CRP #### [facility] [address] [place] [address] USAPlatelets (Bld) [#/Vol]220 10*3/yTAmcxyl637-254Rxo [facility] Physician GroupComment on above:Performed By: #### CBC, BMP, FE PRO, B12, ESR, CRP #### [facility] [address] [place] [address] USARBC (Bld) [#/Vol]2.91 10*6/uLLow3.90-5.60The [facility] Physician GroupComment on above:Performed By: #### CBC, BMP, FE PRO, B12, ESR, CRP #### [facility] [address] [place] [address] USAWBC (Bld) [#/Vol]10.5 10*3/uLNormal4.1-10.5The [facility] Physician GroupComment on above:Performed By: #### CBC, BMP, FE PRO, B12, ESR, CRP #### [place] [address] USACreatinine [Mass/volume] in Serum or PlasmaOrdered By: Nina River on 93-88-3725Eltvpncccx [Mass/Vol]Creatinine [Mass/volume] in Serum or PlasmaHigh0.70-1.30Mer[facility] Memorial HospitalEosinophils Auto (Bld) [#/Vol]Ordered By: Nina River on 87-63-0214Ezijhagfacd (Bld) [#/Vol] Automated eosinophil count0.0-0.45[facility] Eosinophils/100 WBC Auto (Bld)Ordered By: Nina River on 02-08-2024 Eosinophils/100 WBC (Bld)Automated eosinophil %.[facility] Memorial HospitalErythrocyte Sedimentation Rateon 09-43-4726CVG (Bld) [Velocity]44 mm/hHigh 0-19The [facility] Physician GroupComment on above:Result Comment: PERFORMED BY: [place] [address] PATHOLOGIST WEIGHT CLERK FARRAH PAUL M.D.Performed By: #### CBC, BMP, FE PRO, B12, ESR, CRP #### [place] [address] USAErythrocyte distribution width Auto (RBC) [Ratio]Ordered By: Ninastefan River on 19-61-4607Mwhiqdeynhq distribution width (RBC) [Ratio] Erythrocyte distribution width [Ratio] by Automated hetjdZzih76.0-14.8Mer[facility] Memorial HospitalErythrocyte sedimentation rate by Photometric method Ordered By: Nina Aleta on 84-89-7919JEV Photometric method (Bld) [Velocity] Erythrocyte sedimentation rate by Photometric methodHigh0-19Mer[facility] Memorial HospitalFE PROon 02-08-2024% Iron SaturationNot ukzsymqbmJvemfn76-71Yqo [facility] Physician GroupComment on above:Performed By: #### CBC, BMP #### [place] [address] USAFerritin [Mass/Vol]422.9 ng/zZVesx06.9-336.2The [facility] Physician GroupComment on above:Performed By: #### CBC, BMP #### [place] [address] USAIron [Mass/Vol]ug/tUGsa92-479Rqh [facility] Comment on above:Performed By: #### CBC, BMP #### [place] [address] USATotal Iron Binding Oexrkolg008 ug/qNXud461-868Kjg [facility] Physician GroupComment on above:Performed By: #### CBC, BMP #### [address] [address] USATransferrin [Mass/Vol]125 mg/kVGpb445-130Abt [facility] Physician GroupComment on above:Performed By: #### CBC, BMP #### [place] [address] USAFerritin [Mass/volume] in Serum or PlasmaOrdered By: Nina River on 30-39-7815Xmrecwcc [Mass/Vol]Ferritin [Mass/volume] in Serum or SlzjdwKbkg72.9-336.2FMercy Health Anderson HospitalGlucose [Mass/volume] in Serum or PlasmaOrdered By: Nina River on 49-30-5294Jzhrwju [Mass/Vol] Glucose [Mass/volume] in Serum or HgccfcXpia65-180IfohaqgwdMercy Memorial HospitalComment on above:ADA recommended reference rangeRandom Glucose Reference Range is dependent on time and content of last meal. Glucose of more than 200 mg/dL in a nonstressed, ambulatory subject supports the diagnosisof Diabetes Mellitus.Hematocrit Auto (Bld) [Volume fraction]Ordered By: Nina River on 98-79-8623Slivbwyhaq (Bld) [Volume fraction]Hematocrit [Volume Fraction] of Blood by Automated qjyjoDcb34.8-50.0[facility] HospitalHemoglobin [Mass/volume] in BloodOrdered By: Nina River on 78-49-1024Pallgjhise (Bld) [Mass/Vol]Hemoglobin [Mass/volume] in WbfuwYrh02.0-17.0[facility] Memorial HospitalIron [Mass/volume] in Serum or PlasmaOrdered By: Nina River on 12-23-2505Cqzk [Mass/Vol]Iron [Mass/volume] in Serum or KjfgocCen26-931 [facility] HospitalLeukocytes [#/volume] corrected for nucleated erythrocytes in Blood by Automated counOrdered By: Nina River on 02-08-2024 WBC corrected for nucl RBC Auto (Bld) [#/Vol]Leukocytes [#/volume] corrected for nucleated erythrocytes in Blood by Automated coun4.1-10.5FMercy Health Anderson HospitalLymphocytes Auto (Bld) [#/Vol]Ordered By: Nina River on 69-68-4731Scfeqvsnjre (Bld) [#/Vol]Lymphocytes [#/volume] in Blood by Automated countLow1.00-4.8[facility] Memorial HospitalLymphocytes/100 WBC Auto (Bld) Ordered By: Nina River on 12-32-3976Tnwqlzafugu/100 WBC (Bld)Lymphocytes/100 leukocytes in Blood by Automated count.[facility] SystemH Auto (RBC) [Entitic mass]Ordered By: Nina River on 37-55-5677JUE (RBC) [Entitic mass]MCH [Entitic mass] by Automated klkcfMrw96.5-35.2FMercy Health Anderson HospitalMCHC Auto (RBC) [Mass/Vol]Ordered By: Nina Aleta on 64-06-2866YRWA (RBC) [Mass/Vol]MCHC [Mass/volume] by Automated count32.5-35.6 [facility] HospitalMCV Auto (RBC) [Entitic vol]Ordered By: Nina Aleta on 25-71-8492MFS (RBC) [Entitic vol]MCV [Entitic volume] by Automated szltkQqr60.5-101Mer[facility] Memorial HospitalMonocytes Auto (Bld) [#/Vol] Ordered By: Nina River on 16-70-0566Epzcoweub (Bld) [#/Vol]Automated blood monocyte count0.0-0.8[facility] Memorial HospitalMonocytes/100 WBC Auto (Bld)Ordered By: Nina River on 05-19-5851Deuxeyxxl/100 WBC (Bld)Automated monocyte %.[facility] Memorial HospitalNeutrophils Auto (Bld) [#/Vol] Ordered By: Nina Aleta on 69-34-9026Lohkdcdgvrj (Bld) [#/Vol]Neutrophils [#/volume] in Blood by Automated countHigh1.8-7.7FMercy Health Anderson HospitalNeutrophils/100 WBC Auto (Bld)Ordered By: Nina River on 02-08-2024 Neutrophils/100 WBC (Bld)Automated neutrophil %.[facility] HospitalNo Panel InformationOrdered By: Nina River on 80-65-9975Tnlolathk GFR (CKD-EPI)48.779 mL/MinMercy Memorial HospitalPharmacy Creatinine Clearance (ChemN/[facility] CenterNucleated erythrocytes [Presence] in Blood by Automated countOrdered By: Nina River on 02-08-2024 Nucleated RBC Auto Ql (Bld)Nucleated erythrocytes [Presence] in Blood by Automated count0-0.5FMercy Health Anderson HospitalPlatelet mean volume Auto (Bld) [Entitic vol]Ordered By: Nina River on 75-98-4221Zmebysdz mean volume (Bld) [Entitic vol]Platelet mean volume [Entitic volume] in Blood by Automated count6.6-10.1FMercy Health Anderson HospitalPlatelets Auto (Bld) [#/Vol] Ordered By: Nina Aleta on 70-72-8863Jsajfrwlk (Bld) [#/Vol]Platelets [#/volume] in Blood by Automated -667MwcpahlvhMercy Memorial Hospital Potassium [Moles/volume] in Serum or PlasmaOrdered By: Nina River on 36-83-5527Dgphsyrxz [Moles/Vol]Potassium [Moles/volume] in Serum or Plasma 3.5-5.1FMercy Health Anderson HospitalRBC Auto (Bld) [#/Vol]Ordered By: Nina River on 86-23-3726XLN (Bld) [#/Vol]Erythrocytes [#/volume] in Blood by Automated countLow3.90-5.60[facility]an Private Hospitalerum or plasma anion gap determinationOrdered By: Nina River on 35-41-4786Zejhf gap [Moles/Vol]Serum or plasma anion gap determination6.0-15.0Ke[facility] Private Hospitalerum or plasma iron binding capacity measurement (mass/volume) Ordered By: Nina River on 55-82-7573Oooj binding capacity [Mass/Vol]Iron binding capacity [Mass/volume] in Serum or IwgjjwTtt341-202YpfimlitsKeenan Private Hospitalerum or plasma iron saturation measurement (mass fraction)Ordered By: Nina River on 29-06-8270Lrij saturation [Mass fraction]Iron saturation [Mass Fraction] in Serum or PlasmaMercy Memorial HospitalComment on above:Test not performedSodium [Moles/volume] in Serum or PlasmaOrdered By: Nina River on 33-27-1976Pucdxx [Moles/Vol]Sodium [Moles/volume] in Serum or Hlynzt702-686UnzedtbenMercy Memorial HospitalTransferrin [Mass/volume] in Serum or PlasmaOrdered By: Nina River on 47-88-2250Gcajddngaqi [Mass/Vol] Transferrin [Mass/volume] in Serum or QyaabhFjd111-104OwjbcprjvMercy Memorial HospitalUrea nitrogen [Mass/volume] in Serum or PlasmaOrdered By: Ninastefan River on 74-45-5380Mgpn nitrogen [Mass/Vol]Urea nitrogen [Mass/volume] in Serum or Plasma7-25[facility] Memorial HospitalVitamin B12on 54-67-0555Vjmkvitec (Vitamin B12) [Mass/Vol]701 pg/xNQlgbcf521-288Yfx [facility] Comment on above:Result Comment: PERFORMED BY: [place] [address] PATHOLOGIST WEIGHT CLERK FARRAH PAUL M.D.Performed By: #### CBC, BMP #### [place] [address] USAVitamin B12 ser/plasOrdered By: Nina River on 77-97-2463Tunpgblsa (Vitamin B12) [Mass/Vol]Vitamin B12 ser/qekq001-227YbqfyxezeMercy Memorial HospitalWBC Auto (Bld) [#/Vol]Ordered By: Nina River on 31-67-8795HRN (Bld) [#/Vol]Leukocytes [#/volume] in Blood by Automated count 4.1-10.5FMercy Health Anderson HospitalALL CBC WITH AUTO DIFFon 12-02-2023 BASOPHILS ABSOLUTE AUTO0.0N[facility] HealthcareBasophils/100 WBC (Bld)0.3 %0.2 - 2.0 % [facility] HealthcareEosinophils/100 WBC (Bld)6.4 %0.9 - 7.0 %[facility] Erythrocyte distribution width (RBC) [Ratio]16.8 %High11.0 - 15.0 %[facility] HealthcareHematocrit (Bld) [Volume fraction]29.4 %Low42.0 - 54.0 %[facility] HealthcareHemoglobin (Bld) [Mass/Vol]9.0 g/dLLow14.0 - 18.0 g/dLNOMS Healthcare IMMATURE GRANULOCYTES ABS AUTO0.04HighNOMS HealthcareImmature granulocytes/100 WBC (Bld)0.4 %0.0 - 0.5 %[facility] HealthcareInterpretation and review of laboratory resultsAbnormalHUNTSMAN MENTAL HEALTH [facility] HealthcareLYMPHOCYTES ABSOLUTE AUTO1.8NOMS [facility] Lymphocytes/100 WBC (Bld)17.7 %Low20.5 - 60.0 %[facility] CenterH (RBC) [Entitic mass]25.3 pgLow25.9 - 34.0 pgMadison Medical CenterHC (RBC) [Mass/Vol]30.6 g/dL29.9 - 35.2 g/dLMadison Medical CenterV (RBC) [Entitic vol]82.6 fL80.0 - 94.0 fLHeartland Behavioral Health ServicesMONOCYTES ABSOLUTE AUTO0.7NOAL HealthcareMonocytes/100 WBC (Bld)6.7 % 1.7 - 12.0 %[facility] HealthcareNEUTROPHILS ABSOLUTE AUTO7.1HighNOOzarks Community Hospital Neutrophils/100 WBC (Bld)68.5 %43.0 - 75.0 %[facility] Health ServicesPlatelet mean volume (Bld) [Entitic vol]8.8 fLLow9.5 - 13.5 fLNOOzarks Community HospitalTBH EO #0.7NOMS HealthcareTB [id number] [facility] HospitalTB RBC3.56LowNOMS [facility] North HospitalTB WBC10.3NOAL HealthcareCLINISYNCNOMS HealthcareBONE MARROWon 65-63-9399NGJT MARROWSEE SEPARATE REPORTNormalProMedica Community Hospital Of The Monterey PeninsulaComment on above:Result Comment: REVIEWED BY SOLEDAD HUYNH M.D.Performed By: #### EXHR, 98767-2, MDSDF #### [facility] ([id number]) [address] [place] [address], [place] [address] #### 30495-3, BONMAR #### [facility] ([id number]) [address] [place] [address], [address] [place], [place] [address]UZI AND AUTO DIFFon 67-03-4130VTIKYQQZ BASOPHIL0.0 X10E9/LNormal 0.0-0.2Pro[facility] Of The Monterey PeninsulaComment on above:Performed By: #### PINPratik, CBCA #### [facility] ([id number]) [address] [place] [address] 22273TVPSRFIU NEUTROPHIL8.0 X10E9/LHigh1.5-6.6The Surgical Hospital at SouthwoodsComment on above:Performed By: #### MINDY HANNAH #### [facility] ([id number]) [address] [place] [address] 30301Dedbpjrpg/100 WBC (Bld)0.3 %[facility] Comment on above:Performed By: #### MINDY HANNAH #### [facility] ([id number]) [address] [place] [address] 11640Wiljqwlqlyn (Bld) [#/Vol]0.5 10*3/uLHigh0.0-0.4The [facility] Hospital at SouthwoodsComment on above:Performed By: #### MINDY HANNAH #### [facility] ([id number]) [address] [place] [address] 17894Rrnyaflyzua/100 WBC (Bld)4.4 %[facility] Comment on above:Performed By: #### MINDY HANNAH #### [facility] ([id number]) [address] [place] [address] 33363Uhzmehtjlzh distribution width (RBC) [Ratio]16.8 %High11.5-15.0 The Surgical Hospital at SouthwoodsComment on above:Performed By: #### MINDY HANNAH #### [facility] ([id number]) [address] [place] [address] 30578Bruiigxkkk (Bld) [Volume fraction]20.1 %Zgq91-76MvrPiairnThe Surgical Hospital at SouthwoodsComment on above:Performed By: #### MINDY HANNAH #### [facility] ([id number]) [address] [place] [address] 96055Qkaqwyjkxm (Bld) [Mass/Vol]6.6 g/dLCritically low13.0-17.0 [facility] Hospitaledica [facility] Hospital Of The Monterey PeninsulaComment on above:Performed By: #### MINDY HANNAH #### [facility] ([id number]) [address] [place] [address] 41339Giggdxqdgni (Bld) [#/Vol]1.4 10*3/uLNormal1.0-3.5ProMedica [facility] Hospital Of The Monterey PeninsulaComment on above:Performed By: #### [place] CBCGeoff #### [facility] ([id number]) [address] [place] [address] 79448Rbrcsgzwrik/100 WBC (Bld)13.0 %NormalThe Surgical Hospital at Southwoods Comment on above:Performed By: #### MINDY HANNAH #### [facility] ([id number]) [address] [place] [address] 26619AQP (RBC) [Entitic mass]24.7 goYow32-72UpiYkorlfThe Surgical Hospital at SouthwoodsComment on above:Performed By: #### [place] CBCGeoff #### [facility] ([id number]) [address] [place] [address] 60584AAHK (RBC) [Mass/Vol]32.6 g/qNZbouka12-05NtnMeazeuThe Surgical Hospital at SouthwoodsComment on above:Performed By: #### MINDY HANNAH #### [facility] ([id number]) [address] [place] [address] 17904VPS (RBC) [Entitic vol]76 uAUwt56-088IqsMbjundThe Surgical Hospital at Southwoods Comment on above:Performed By: #### [place] CBCA #### [facility] ([id number]) [address] [place] [address] 43600Jykcmhbpw (Bld) [#/Vol]0.9 10*3/uLNormal0-0.9The [facility] Hospital at SouthwoodsComment on above:Performed By: #### PINR, CBCA #### [facility] ([id number]) [address] [place] [address] 41591Xcxhwurhb/100 WBC (Bld)8.2 %[facility] Comment on above:Performed By: #### MINDY HANNAH #### [facility] ([id number]) [address] [place] [address] 58878Plejpvjoqkr/100 WBC (Bld)74.1 %[facility] Comment on above:Performed By: #### MINDY HANNAH #### [facility] ([id number]) [address] [place] [address] 97628Iwvcrryb mean volume (Bld) [Entitic vol]7.0 fLNormal7-12 The [facility] Hospital at SouthwoodsComment on above:Performed By: #### MINDY HANNAH #### [facility] ([id number]) [address] [place] [address] 00111Cvgkapaqm (Bld) [#/Vol]371 10*3/gNZdlxho868-032QcfYdfgxtThe Surgical Hospital at SouthwoodsComment on above:Performed By: #### MINDY HANNAH #### [facility] ([id number]) [address] [place] [address] 73409PHC COUNT2.66 X10E12/LLow4.10-5.70[facility] Comment on above:Performed By: #### [place] CBCA #### [facility] ([id number]) [address] [place] [address] 00001RJF (Bld) [#/Vol]10.8 10*3/uLNormal4.0-11.0The [facility] Hospital at SouthwoodsComment on above:Performed By: #### TONY HANNAHA #### [facility] ([id number]) [address] [place] [address] 53806KMS and RNA Extract and Holdon 22-92-7560PCH and RNA Extract and HoldSEE COMMENTS 10/14/2023 08:52 AMNormalProMedica USC [facility]. Cancer Hospital on above:Result Comment: NOTE Test Result [...] catalog, please contact [facility] at [phone]. Method summary: DNA and RNA were extracted from the received specimen and stored at -80 C. This test was developed and its performance characteristics determined by [facility] in a manner consistent with CLIA requirements. This test has not been cleared or approved by the U.S. Food and Drug Administration. Test Performed by: [address] [address] Loss Prevention Consultant: Rosie Ruby Ph.D.; CLIA# [id number] By: #### KIM, 10361-8, BERNABE #### [facility] ([id number]) [address] [place] [address] #### 11303-4, PENNY #### [facility] ([id number]) [address] [place] [address], [address] [place], [place] [address]Qnyh cytometry specialist review Álvaro (Unsp spec) [Interp]on 81-45-9805LIII CYTOMETRY BMSEE SEPARATE REPORT, REVIEWED BY PATHOLOGISTNormal [facility] on above:Performed By: #### KIM, 41040-8, MDSMARYANN #### [facility] ([id number]) [address] [facility], [place] [address] #### 48067-7, PENNY #### [facility] ([id number]) [address] [facility], [address] [place], [place] [address]VF BX AND ASP BONE MARROW SNGL OR MULTon 81-88-6204OL BX AND ASP BONE MARROW SNGL OR [...] on the left iliac bone using an Network18 powered bone marrow biopsy system. The bone [...] by Khadar Guerrero MD on 10/11/2023 9:49 AMNormalThe Surgical Hospital at SouthwoodsKaryotype Nom (BM)on 90-77-0186DVFCNBQRBC BONE MARROWSEE COMMENTS 10/19/2023 02:37 PMNormalThe Surgical Hospital at SouthwoodsComment on above:Result Comment: NOTE Test Result Flag Unit RefValue Chromosomes, Hematologic, BM Result Summary Normal Interpretation See Note No clonal abnormality was apparent. Since this conventional chromosome study was successful, MDS, Diag FISH was cancelled per lab protocol (Isma Christie et al., [facility], 146:86-94, 2016; [facility] MDS Algorithm: [email or web address]). Result 46,XY[20] Reason for Referral leukocytosis [...] the testing process was performed at [facility] [employer] site [id number]. Released By Tanvi Loo M.D. Test Performed by: [facility] - [address] [address] Loss Prevention Consultant: Rosie Ruby Ph.D.; CLIA# [id number] By: #### EXHR, 76710-1, MDSDF #### [facility] ([id number]) [address] [place] [address] #### 27496-7, PENNY #### [facility] ([id number]) [address], [address] [place], [place] [address]CJEZQTIVTMYRGMR SYNDROME (MDS),DIAGNOSTIC FISH, Jerry [id number] SYNDROME (MDS),DIAGNOSTIC FISH, ANGELA COMMENTS 10/22/2023 08:45 AMNormalProMedica Flower Hospitalca Community Hospital Of The Monterey PeninsulaComment on above:Result Comment: NOTE Test Result Flag Unit RefValue MDS, Diagnostic FISH Interpretation TNP MDS, Diagnostic FISH was cancelled on 10/22/2023 at 08:41; Based on other test results additional testing not required. MDS FISH order was cancelled per laboratory protocol (Isma et al., Amer J Clin Pathol 146:86-94, 2016; [facility] MDS Algorithm: [email or web address]-[email or web address]/Myelodysplastic_S yndrome_Guideline_ to_Diagnosis_and_Follow-up.pdf) with Probes -RPN1(G)/MECOM(R), -TP53(R)/D17Z1(G), -D8Z2(G)/MYC(R), -Q97M797(R)/20QTER(G), -L9T608(G)/EGR1(R), -D7Z1(G)/P2R029(R) Test Performed by: [facility] [place] [address] Loss Prevention Consultant: Rosie Ruby Ph.D.; CLIA# [id number] By: #### EXHR, 14628-8, MDSDF #### [facility] ([id number]) [address] [place] [address] #### 16801-8, PENNY #### [facility] ([id number]) [address] [place] [address], [address] [place], [place] [address]MHYYVLE AND INRon [phone] Coag (PPP) [Relative time]1.3 {INR}High0.8-1.1PRiverside Methodist HospitalComment on above:Performed By: #### PINR, CBCA #### [facility] ([id number]) [address] [place] [address]VT Coag (PPP) [Time]14.9 sHigh9.8-13.2PRiverside Methodist HospitalComment on above:Result Comment: NEW REFERENCE RANGEPerformed By: #### PINR, CBCA #### [facility] ([id number]) [address] [place] [address]Fcfqwyyp Pathologyon 32-70-6474Fjgwwfmm PathologyNormal The Surgical Hospital at SouthwoodsComment on above:Result Comment: [facility] HospitalKetsu [facility] Laboratory Medicine [address] [place] [address] Bone Marrow Consultation Patient Name:GANGA STINSON:1960 (Age: 63)Gender:MTaken:4Reported:4Physician(s):Nina River ([phone])Copy To:Khadar Guerrero M.D. Rec. #: [id number]: #[id number] Final Pathologic Diagnosis Bone marrow, aspiration and [...] acquisition are identified on maturing myeloid cells. [place] on the lymphoid population demonstrates a mixed population of phenotypically unremarkable T-cells, polyclonal B-cells, and natural killer cells, without a detectable monoclonal population. No monotypic plasma cell population is identified. Immunophenotyping antibodies tested: CD2, CD3, CD4, CD5, CD7, CD8, CD10, CD13, CD16, CD19, CD20 , CD23, CD33, CD34, CD38, CD43, CD45, CD56, CD117, CD123, CD138, Burleigh, Lambda. Cytoplasmic Burleigh/CD38,Cytoplasmic Lambda/CD38, and intrinsic VS38 Immunophenotyping Comment: Immunophenotyping has been used in this diagnostic evaluation. This test was developed and its performance characteristics determined by the [facility] Department. It has not been [...] Out Soledad Huynh MD Interpretation [place] [address], License number: [id number]. Clinical History Leukocytosis. Gross Description 1. Received in B plus fixative labeled ALLOWAY, clot is a friable portion of hemorrhagic material, 2.2 x 1.0 x 0.4 cm in aggregate. The specimen is submitted entirely in a single cassette. (1, ns, [id number], m1) LADONNA 2. Received in B plus fixative labeled ALLOWAY, core is a pale osborne-pardo cylindrical segment of bone with adherent hemorrhagic material, 1.0 cm in length and 0.2 cm in diameter. The specimen is submitted entirely in a single cassette following a period of decalcification in Rapid-Delbert Immuno. (1, ns, [id number], m1) LADONNA Comment: Per epic IR procedure [...] (BldC) [Mass/Vol] Ordered By: Jonathan Moffett on 92-25-2647Wslggam [Mass/Vol]134 mg/dLMercy Memorial HospitalComment on above:Random Glucose Reference Range is dependent on time and content of last meal. Glucose of more than 200 mg/dL in a nonstressed, ambulatory subject supports the diagnosis of Diabetes Mellitus.Gram stain for investigation of transfusion reactionOrdered By: Jnoathan Moffett on 93-47-1999Nimjhsrtocu observation Gram stain Nom (Unsp spec)Prevotella disiens Mercy Memorial HospitalMR ANKLE LT WO CONon 21-68-8713[place] [address] Magnetic Resonance Report Signed Patient: GANGA STINSON MR#: [id number] : 1960 Acct:[id number] Age/Sex: 62 / M ADM Date: 05/18/23 Loc: MRI Attending Dr: JONATHAN MOFFETT Ordering Physician: JONATHAN MOFFETT Date of Service: 05/18/23 Procedure(s): ankle LT wo con Accession Number(s): [id number] cc: JONATHAN MOFFETT ; Fidel Abbott M.D. [facility] [place] [address] Patient Name: GANGA STINSON MRN: [id number] date: 1960 Sex: M Assigned Patient Location: MRI Current Patient Location: MRI Accession/Order Number: [id number] Exam Date: 05/18/2023 10:51 Report Date: 05/18/2023 [...] Signed By: 05/18/23 1648 DD/ 1605 TD/TT: Carpenter Supervisor:TBHRadiology, Radiologist, - 05/18/2023 [place] [address] Magnetic Resonance Report Signed Patient: GANGA STINSON MR#: [id number] : 1960 Acct:[id number] Age/Sex: 62 / M ADM Date: 05/18/23 Loc: MRI Attending Dr: JONATHAN MOFFETT Ordering Physician: JONATHAN MOFFETT Date of Service: 05/18/23 Procedure(s): MR ankle LT wo con Accession Number(s): [id number] cc: JONATHAN MOFFETT ; Fidel Abbott M.D. [facility] [place] [id number] Patient Name: GANGA STINSON MRN: [id number] date: 1960 Sex: M Assigned Patient Location: MRI Current Patient Location: MRI Accession/Order Number: [id number] Exam Date: 05/18/2023 10:51 Report Date: 05/18/2023 [...] Signed By: 05/18/23 1648 DD/ 1605 TD/TT: Carpenter Supervisor: DAISY [facility] HospitalRadiology Study observation (narrative)[facility] ANKLE LT WO CONOrdered By: Radiologist Radiology on 99-30-5855[facility] Work Phone: cult,Urineon 87-38-7983Xkqo,UrineSpecimen Description .CLEAN CATCH URINE Culture NO SIGNIFICANT GROWTH Report Status FINAL 09/26/2022NoWhite HospitalComment on above: Performed By: #### CMPX, CDP #### [facility] [address] [place], [place] [address] Loss Prevention Consultant: ANICETO Ortega RENAL COMPLETEon 07-48-5793OB RENAL COMPLETE EXAMINATION: RETROPERITONEAL ULTRASOUND OF THE [...] Signed by: Alexander Mcclain DO 09/19/22 Final resultNormalThe University Of Toledo Medical CenterUnremarkable ultrasound of the kidneys and urinary bladder. [facility] CONSOLIDATEDEXAMINATION: RETROPERITONEAL ULTRASOUND OF THE KIDNEYS AND [...] bladder. No significant post void residual. [facility] Alexander Amanda DO - 09/19/2022 EXAMINATION: RETROPERITONEAL [...] the kidneys and urinary bladder. [facility]PITALUS RENAL COMPLETEOrdered By: Alexander Mcclain on 15-80-9830BIO [facility] Work Phone: Basic Metabolic Profon 46-20-5921Gbbcq gap [Moles/Vol] 10 mmol/LNormal9-17The [facility] Toledo Medical CenterComment on above:Performed By: #### BMP #### [facility] [address] [place] [address] Loss Prevention Consultant: UCHE Ortega/CRE Pchob21Szua2-14KfsqoThe University Of [facility]edo Medical Center Comment on above:Performed By: #### BMP #### [facility] [address] [place] [address] Loss Prevention Consultant: SALLY Ortegaalcium [Mass/Vol]9.3 mg/dLNormal8.6-10.4The [facility] Toledo Medical CenterComment on above:Performed By: #### BMP #### [address] [place] [address]83 Loss Prevention Consultant: SALLY Ortegahloride [Moles/Vol]105 mmol/EJolytb68-556WhuofThe University Of Toledo Medical CenterComment on above:Performed By: #### BMP #### [address] [place] 9566983 Loss Prevention Consultant: Khadar Tang MDCO2 [Moles/Vol]22 mmol/WPvykmm33-77EtofqThe University Of Toledo Medical CenterComment on above:Performed By: #### BMP #### [address] [place] 1473283 Loss Prevention Consultant: SALLY Ortegareatinine [Mass/Vol]1.25 mg/dLHigh0.70-1.20The [facility] Toledo Medical CenterComment on above:Performed By: #### BMP #### [address] [place] [address] Loss Prevention Consultant: Khadar Tang MDGFR/1.73 sq M.predicted among non-blacks MDRD (S/P/Bld) [Vol rate/Area]mL/min/{1.73_m2}Normal>60The [facility]edo Medical CenterComment on above:Result Comment: These results are not [...] renal tubular secretion.Performed By: #### BMP #### [address] [place] [address] Loss Prevention Consultant: Khadar Tang MDGlucose [Mass/Vol]186 mg/gNEvmz25-99Xdogr [facility] Psychiatric HospitalComment on above:Performed By: #### BMP #### [address] [place], [place] 8[address]83 Loss Prevention Consultant: LAWRENCE Ortegaotassium [Moles/Vol]4.1 mmol/LNormal3.7-5.3MGalion Community Hospital HospitalComment on above:Performed By: #### BMP #### [facility] [address] [place] 2294783 Loss Prevention Consultant: SAMMI Ortegaodium [Moles/Vol]137 mmol/FSkbtjy380-514EulvlThe University Of Toledo Medical CenterComment on above:Performed By: #### BMP #### [address] [place], [place] 57[address]783 Loss Prevention Consultant: Khadar Tang MDUrea nitrogen [Mass/Vol]32 mg/dLHigh8-23The [facility] Toledo Medical CenterComment on above:Performed By: #### BMP #### [address] [place], [place] 7216383 Loss Prevention Consultant: ANICETO Ortega RENAL COMPLETEon 80-58-6360Qatvwnapv Study observation (narrative)RAIN [facility] WRIGHT-PATTERSON MEDICAL CENTERHemoglobin A1Con 2022 Glucose [Mass/Vol]171 mg/dLNormalThe University Of Toledo Medical CenterComment on above:Result Comment: The ADA and AACC recommend providing the estimated average glucose result to permit better patient understanding of their HBA1c result.Performed By: #### GLYHGB #### [employer] [address] [place] [address] Loss Prevention Consultant: Jeff Casanova MDHbA1c (Bld) [Mass fraction]7.6 %High4.0-6.0The [facility] Of Toledo Medical CenterComment on above:Performed By: #### GLYHGB #### [employer] [address] [place] [address] Loss Prevention Consultant: Jeff Casanova MDOPERATIVE REPORTon 40-25-5011OXARSWZTF REPORT [address] [address] OPERATIVE REPORT PATIENT NAME: GANGA STINSON : 1960 MED REC NO: [id number] ROOM: ACCOUNT NO: [id number] ADMIT DATE: 2022 PROVIDER: Angeles Nagy DATE OF PROCEDURE: 2022 SURGEON: Dr. Angeles Nagy. SALES DEVELOPMENT COORDINATOR: None. PREOPERATIVE DIAGNOSES: 1. Neurogenic bladder. 2. [...] obtained. [facility] room table, where he [...] awoken from general anesthesia, transferred [facility], and taken to the PACU in satisfactory condition by Nursing and Anesthesia Teams. PLAN: The patient will be discharged home per PACU criterion and follow up with me in one week for Rowe catheter removal. ANGELES NAGY ALEXANDRIA/Jerry_CGGIS_I Doc#: [id number] CC:NormalMercy Lawrence+Memorial Hospital Metabolic Panelon 79-95-6416Ojbfz gap [Moles/Vol]10 mmol/L9 - 17 mmol/LBON SECRadialogica HEALTHCalcium [Mass/Vol]8.8 mg/dL8.6 - 10.4 mg/dLBON SECRadialogica HEALTHChloride [Moles/Vol]106 mmol/L98 - 107 mmol/LBON SECKeepconCO2 [Moles/Vol]24 mmol/L20 - 31 mmol/LBON SECKeepconCreatinine [Mass/Vol]1.3 mg/dLHigh0.70 - 1.20 mg/dLBON BluedGFR/1.73 sq M.predicted MDRD (S/P/Bld) [Vol rate/Area]- [facility] GENERAL HOSPITALKeepconComment on above: These results are not intended [...] that affects renal tubular secretion. Glucose [Mass/Vol]250 mg/mOUoxp25 - 99 mg/dLBON Blued Interpretation and review of laboratory resultsAbnormalBON CITY OF HOPE, PHOENIXKeepcon Potassium [Moles/Vol]4.0 mmol/L3.7 - 5.3 mmol/LBON SECKeepconSodium [Moles/Vol]140 mmol/L135 - 144 mmol/LBON CITY OF HOPE, PHOENIXKeepconUrea nitrogen [Mass/Vol]29 mg/dLHigh8 - 23 mg/dLBON CITY OF HOPE, PHOENIXKeepconUrea nitrogen/Creatinine (Bld) [Mass ratio]26Duls8 - 20BON C[facility] GENERAL HOSPITALGreat Mobile Meetings WYANDOT MEMORIAL HOSPITALBON SECRadialogica WYANDOT MEMORIAL HOSPITALBasic Metabolic Profon 21-44-4339Gmuch gap [Moles/Vol]10 mmol/LNormal9-17The [facility] Toledo Medical CenterComment on above:Performed By: #### CMPX, CDP #### [facility] [address] [place] [address] [place] [address] Loss Prevention Consultant: Khadar Tang MDBUN/CRE Dumfc88Dcgb2-62LewwnThe University Of [facility] Medical Center Comment on above:Performed By: #### CMPX, CDP #### [facility] [address] [place] [address] Dr. [place], [place] 2240[address] Loss Prevention Consultant: SALLY Ortegaalcium [Mass/Vol]8.8 mg/dLNormal8.6-10.4The [facility]edo Medical CenterComment on above:Performed By: #### CMPX, CDP #### [address] [place] [address] Loss Prevention Consultant: SALLY Ortegahloride [Moles/Vol]106 mmol/IQhxpzd77-379EdhlvThe University Of Toledo Medical CenterComment on above:Performed By: #### CMPX, CDP #### [address] [place] [address] Loss Prevention Consultant: Khadar Tang MDCO2 [Moles/Vol]24 mmol/PPthoya03-60VzkcjThe University Of Toledo Medical CenterComment on above:Performed By: #### CMPX, CDP #### [address] [place] [address] Loss Prevention Consultant: SALLY Ortegareatinine [Mass/Vol]1.30 mg/dLHigh0.70-1.20The [facility]edo Medical CenterComment on above:Performed By: #### CMPX, CDP #### [address] [place] [address] Loss Prevention Consultant: Khadar Tang MDGFR/1.73 sq M.predicted among non-blacks MDRD (S/P/Bld) [Vol rate/Area]mL/min/{1.73_m2}Normal>60Mer[facility] Indianola HospitalComment on above:Result Comment: These results are [...] tubular secretion.Performed By: #### CMPX, CDP #### [address] [place] [address] Loss Prevention Consultant: hKadar Tang MDGlucose [Mass/Vol]250 mg/xBJsrn52-68UixzoMcKitrick HospitalComment on above:Performed By: #### CMPX, CDP #### [address] [place] [address] Loss Prevention Consultant: LAWRENCE Ortegaotassium [Moles/Vol]4.0 mmol/LNormal3.7-5.3MGalion Community Hospital HospitalComment on above:Performed By: #### CMPX, CDP #### [address] [place] [address] Loss Prevention Consultant: SAMMI Ortegaodium [Moles/Vol]140 mmol/JMkuxfb712-897EykfvThe University Of Toledo Medical CenterComment on above:Performed By: #### CMPX, CDP #### [address] [place], [facility]83 Loss Prevention Consultant: Khadar Tang MDUrea nitrogen [Mass/Vol]29 mg/dLHigh8-23The [facility] Medical CenterComment on above:Performed By: #### CMPX, CDP #### [address] [place], [place] [address]8583 Loss Prevention Consultant: Khadar Tang [facility] with Auto Differentialon 32-01-7290Yvueppst Eos #0.80HighBON SECOURS UNIVERSITY HOSPITALS BEACHWOOD MEDICAL CENTERY HEALTHAbsolute Immature Granulocyte0.06[facility]ENTERY HEALTHAbsolute Lymph #1.38B[facility] SECOURS [facility] HEALTHAbsolute [place] # 0.81B[facility] SEC[facility] HEALTHBasophils AbsoluteBON SECOURS [facility] HEALTH Basophils/100 WBC (Bld)0 %0 - 2 %[facility] HEALTHEosinophils/100 WBC (Bld)7 %High1 - 4 %BON SECUZMA WRIGHT-PATTERSON MEDICAL CENTERHematocrit (Bld) [Volume fraction] 26.8 %Low40.7 - 50.3 %BON PARKVIEW HEALTHHemoglobin (Bld) [Mass/Vol]7.9 g/dLLow13.0 - 17.0 g/dLBON SECOURS WRIGHT-PATTERSON MEDICAL CENTERImmature granulocytes/100 WBC (Bld)1 %Ofse7DDG SECOCHSNER MEDICAL CENTER HEALTHInterpretation and review of laboratory resultsAbnormalBON SECOURS WRIGHT-PATTERSON MEDICAL CENTERLymphocytes/100 WBC (Bld)13 %Low24 - 43 % RAIN OHIOHEALTHH (RBC) [Entitic mass]23.3 pgLow25.2 - 33.5 pgBON SECOHIO STATE HARDING HOSPITALHC (RBC) [Mass/Vol]29.5 g/dL28.4 - 34.8 g/dLBON SECUZMA UNIVERSITY HOSPITALS BEACHWOOD MEDICAL CENTERLowell WYAND[facility] MEMORIAL HOSPITALMCV (RBC) [Entitic vol]79.1 fLLow82.6 - 102.9 fLBON SECUZMA [facility] HEALTHMonocytes/100 WBC (Bld)8 %3 - 12 %RAIN PARKVIEW HEALTHNRBC Automated 0.00.0 per 100 WBCBON SECUZMA [facility] HEALTHPlatelet distribution width (Bld) [Ratio]16.1 %High11.8 - 14.4 %BON SECOCHSNER MEDICAL CENTER HEALTHPlatelet mean volume (Bld) [Entitic vol]9.1 fL8.1 - 13.5 fLBON SECOURS [facility] HEALTHPlatelets (Bld) [#/Vol] 241 10*3/uLBON SECOURS [facility] HEALTHRBC (Bld) [#/Vol]3.39 10*6/uLLow4.21 - 5.77 m/uLBON SECUZMA WRIGHT-PATTERSON MEDICAL CENTERSegmented neutrophils/100 WBC (Bld)71 %High36 - 65 % BON SECOCHSNER MEDICAL CENTER HEALTHSegs Absolute7.79B[facility] HEALTHWBC (Bld) [#/Vol]10.9 10*3/uLBON SECOURS WRIGHT-PATTERSON MEDICAL CENTERBON [facility] with Diff on 03-63-5509Bjn. Basophil<0.83Krcysp1.00-0.20[facility] HospitalComment on above:Performed By: #### CMPX, CDP #### [facility] [address] [place] [address] [place] [place] [address] Loss Prevention Consultant: MDAbs. ShannonImm.Granulocyte0.06 k/uLNormal0.00-0.30[facility] HospitalComment on above:Performed By: #### CMPX, CDP #### [address] [place] [place] [address] Loss Prevention Consultant: Audra Ortega.Neutrophil (Seg)7.79 k/uLNormal1.50-8.10[facility] HospitalComment on above:Performed By: #### CMPX, CDP #### [address] [place], [place] [address] Loss Prevention Consultant: Khadar Tang MDBasophils/100 WBC (Bld)0 %Normal0-2MGalion Community Hospital HospitalComment on above:Performed By: #### CMPX, CDP #### [address] [place] [address] Loss Prevention Consultant: Khadar Tang MDEosinophils (Bld) [#/Vol]0.80 10*3/uLHigh0.00-0.44 The [facility] Medical CenterComment on above:Performed By: #### CMPX, CDP #### [address] [place] [address] Loss Prevention Consultant: Khadar Tang MDEosinophils/100 WBC (Bld)7 %High1-4The [facility] Medical CenterComment on above:Performed By: #### CMPX, CDP #### [facility] [address] [place] [address] [place] [address] Loss Prevention Consultant: Khadar Tang MDErythrocyte distribution width (RBC) [Ratio]16.1 % High11.8-14.4[facility] HospitalComment on above:Performed By: #### CMPX, CDP #### [address] [place] [address] Loss Prevention Consultant: Khadar Tang MDHematocrit (Bld) [Volume fraction]26.8 %Low 40.7-50.3MGalion Community Hospital HospitalComment on above:Performed By: #### CMPX, CDP #### [address] [place] [address] Loss Prevention Consultant: Khadar aTng MDHemoglobin (Bld) [Mass/Vol]7.9 g/dLLow13.0-17.0 [facility] HospitalComment on above:Performed By: #### CMPX, CDP #### [address] [place], [place] [address] Loss Prevention Consultant: Khadar Tang MDImmature granulocytes/100 WBC (Bld)1 %Oeln4VakbiChillicothe Va Medical Center HospitalComment on above:Performed By: #### CMPX, CDP #### [address] [place] [address] Loss Prevention Consultant: Khadar Tang MDLymphocytes (Bld) [#/Vol]1.38 10*3/uLNormal 1.10-3.70[facility] HospitalComment on above:Performed By: #### CMPX, CDP #### [address] [place] [address] Loss Prevention Consultant: Khadar Tang MDLymphocytes/100 WBC (Bld)13 %Xvf03-19Vhnrc Tiffin HospitalComment on above:Performed By: #### CMPX, CDP #### [address] [place], [place] 1352583 Loss Prevention Consultant: MORENO OrtegaCH (RBC) [Entitic mass]23.3 pgLow25.2-33.5The [facility] Medical CenterComment on above:Performed By: #### CMPX, CDP #### [address] [place] [address] Loss Prevention Consultant: MORENO OrtegaCHC (RBC) [Mass/Vol]29.5 g/wOBtdfaj30.4-34.8The [facility] Medical CenterComment on above:Performed By: #### CMPX, CDP #### [address] [place] [address] Loss Prevention Consultant: MORENO OrtegaCV (RBC) [Entitic vol]79.1 fLLow82.6-102.9The [facility] Medical CenterComment on above:Performed By: #### CMPX, CDP #### [address] [place] [address] Loss Prevention Consultant: MORENO Ortegaonocytes (Bld) [#/Vol]0.81 10*3/uLNormal0.10-1.20 [facility] CenterComment on above:Performed By: #### CMPX, CDP #### [address] [place] [address] Loss Prevention Consultant: MORENO Ortegaonocytes/100 WBC (Bld)8 %Normal3-12The [facility] Medical CenterComment on above:Performed By: #### CMPX, CDP #### [address] [place] [address] Loss Prevention Consultant: Khadar Tang MDNeutrophil (Seg)71 %Jgze92-36UtovbThe [facility] Comment on above:Performed By: #### CMPX, CDP #### [address] [place], [place] [address]183 Loss Prevention Consultant: Khadar Tang MDNRBC Automated0.0 per 100 WBCNormal0.0Mer[facility] Indianola HospitalComment on above:Performed By: #### CMPX, CDP #### [address] [place] [address] Loss Prevention Consultant: Thiago Ortega mean volume (Bld) [Entitic vol]9.1 fL Normal8.1-13.5[facility] HospitalComment on above:Performed By: #### CMPX, CDP #### [address] [place] [address] Loss Prevention Consultant: Laila Ortega (Bld) [#/Vol]241 10*3/lQVempqt649-082 The [facility] CenterComment on above:Performed By: #### CMPX, CDP #### [address] [place] [address] Loss Prevention Consultant: CLEOPATRA Ortega (Bld) [#/Vol]3.39 10*6/uLLow4.21-5.77The [facility] Medical CenterComment on above:Performed By: #### CMPX, CDP #### [address] [place] [address] Loss Prevention Consultant: KEO Ortega (Bld) [#/Vol]10.9 10*3/uLNormal3.5-11.3MGalion Community Hospital HospitalComment on above:Performed By: #### CMPX, CDP #### [address] [place] [address] Loss Prevention Consultant: Med Ortega,Woundon 85-54-3002Twtt,WoundSpecimen Description .WOUND Special Requests LEG Direct Exam NO NEUTROPHILS SEEN NO ORGANISMS SEEN Culture NO GROWTH Report Status FINAL 06/27/2022NormalChillicothe Va Medical Center HospitalComment on above: Performed By: #### CMPX, CDP #### [address] [place] [address] Loss Prevention Consultant: Khadar Tang, [facility] auto differentialon 06-11-0037Tfcolaib Eos # 0.63HighBON SECOURS UN[facility] CENTERY HEALTHAbsolute Immature Granulocyte0.05[facility] HEALTHAbsolute Lymph #1.33[facility] HEALTHAbsolute [place] #0.82[facility] HEALTHBasophils AbsoluteBON SECOURS MERCY HEALTHBasophils/100 WBC (Bld)0 %0 - 2 %[facility]ERY HEALTHEosinophils/100 WBC (Bld)7 %High1 - 4 % [facility] CENTERY W[facility] MEMORIAL HOSPITALHematocrit (Bld) [Volume fraction]24.4 %Low40.7 - 50.3 % [facility]ERY W[facility] MEMORIAL HOSPITALHemoglobin (Bld) [Mass/Vol]7.6 g/dLLow13.0 - 17.0 g/dL [facility]TERSON MEDICAL CENTERImmature granulocytes/100 WBC (Bld)1 %Juej3BBU [facility]OURS [facility]ENTERY HEALTHInterpretation and review of laboratory resultsAbnormalBON SECOURS WRIGHT-PATTERSON MEDICAL CENTERLymphocytes/100 WBC (Bld)14 %Low24 - 43 %BON SECOHIO STATE HARDING HOSPITALH (RBC) [Entitic mass]23.8 pgLow25.2 - 33.5 pgBON SECOURS PARKVIEW HEALTH MONTPELIER HOSPITALHC (RBC) [Mass/Vol]31.1 g/dL28.4 - 34.8 g/dLBON SECOHIO STATE HARDING HOSPITALV (RBC) [Entitic vol]76.3 fLLow82.6 - 102.9 fLBON SECOURS UNIVERSITY HOSPITALS [facility]ACHWO[facility] MEDICAL CENTERY HEALTHMonocytes/100 WBC (Bld)9 %3 - 12 %[facility]ERY HEALTHNRBC Automated0.00.0 per 100 WBCBON SECOURS UN[facility]ERSITY HOS[facility]ALS BEACHWOOD MEDICAL CENTERY HEALTHPlatelet distribution width (Bld) [Ratio]16.0 %High11.8 - 14.4 %[facility] HEALTHPlatelet mean volume (Bld) [Entitic vol]8.8 fL8.1 - 13.5 fL [facility] HEALTHPlatelets (Bld) [#/Vol]205 10*3/uLBON SECOURS UNIVERSITY HOSPITALS [facility]ACH[facility] MEDICAL CENTERY HEALTHRBC (Bld) [#/Vol]3.20 10*6/uLLow4.21 - 5.77 m/uLBON PARKVIEW HEALTH Segmented neutrophils/100 WBC (Bld)69 %High36 - 65 %[facility] PARKVIEW HEALTHSegs Absolute6.49[facility]ARK[facility] HEALTHWBC (Bld) [#/Vol]9.3 10*3/uLBON PARKVIEW HEALTHBON PARKVIEW HEALTHCBC with Diffon [id number]. Basophil<0.03 Normal0.00-0.20The University Of Toledo Medical CenterComment on above:Performed By: #### CMPX, CDP #### [address] [place] [place] [address] Loss Prevention Consultant: Audra Ortega.Imm.Granulocyte0.05 k/uLNormal0.00-0.30The University Of Toledo Medical CenterComment on above:Performed By: #### CMPX, CDP #### [address] [place], [facility]83 Loss Prevention Consultant: Audra Ortega.Neutrophil (Seg)6.49 k/uLNormal1.50-8.10The University Of Toledo Medical CenterComment on above:Performed By: #### CMPX, CDP #### [address] [place] [address] Loss Prevention Consultant: Khadar Tang MDBasophils/100 WBC (Bld)0 %Normal0-2MGalion Community Hospital HospitalComment on above:Performed By: #### CMPX, CDP #### [address] [place] [address] Loss Prevention Consultant: Khadar Tang MDEosinophils (Bld) [#/Vol]0.63 10*3/uLHigh0.00-0.44 The [facility] Toledo Medical CenterComment on above:Performed By: #### CMPX, CDP #### [address] [place], [place] 9575183 Loss Prevention Consultant: TOOTIE Ortegaosinophils/100 WBC (Bld)7 %High1-4[facility] HospitalComment on above:Performed By: #### CMPX, CDP #### [address] [place] [place] [address] Loss Prevention Consultant: Khadar Tang MDErythrocyte distribution width (RBC) [Ratio]16.0 % High11.8-14.4[facility] HospitalComment on above:Performed By: #### CMPX, CDP #### [address] [place], [facility]83 Loss Prevention Consultant: Khadar Tang MDHematocrit (Bld) [Volume fraction]24.4 %Low 40.7-50.3[facility] Indianola HospitalComment on above:Performed By: #### CMPX, CDP #### [address] [place], [facility]83 Loss Prevention Consultant: Khadar Tang MDHemoglobin (Bld) [Mass/Vol]7.6 g/dLLow13.0-17.0 [facility] HospitalComment on above:Performed By: #### CMPX, CDP #### [address] [place], [place] [address] Loss Prevention Consultant: Khadar Tang MDImmature granulocytes/100 WBC (Bld)1 %Iatl9XumpsChillicothe Va Medical Center HospitalComment on above:Performed By: #### CMPX, CDP #### [address] [place], [facility]83 Loss Prevention Consultant: Khadar Tang MDLymphocytes (Bld) [#/Vol]1.33 10*3/uLNormal 1.10-3.70The University Of Toledo Medical CenterComment on above:Performed By: #### CMPX, CDP #### [address] [place] [id number] Loss Prevention Consultant: Kailyn Ortegamphocytes/100 WBC (Bld)14 %Jpp30-26KrvkfThe University Of Toledo Medical CenterComment on above:Performed By: #### CMPX, CDP #### [address] [place], [place] [address]83 Loss Prevention Consultant: MORENO OrtegaCH (RBC) [Entitic mass]23.8 pgLow25.2-33.5The [facility] Of Toledo Medical CenterComment on above:Performed By: #### CMPX, CDP #### [address] [place], [place] 0316083 Loss Prevention Consultant: MORENO OrtegaCHC (RBC) [Mass/Vol]31.1 g/tQLhbwsl47.4-34.8The [facility] Of Toledo Medical CenterComment on above:Performed By: #### CMPX, CDP #### [address] [place], [place] 5534983 Loss Prevention Consultant: MORENO OrtegaCV (RBC) [Entitic vol]76.3 fLLow82.6-102.9The [facility] Of [facility]edo Medical CenterComment on above:Performed By: #### CMPX, CDP #### [address] [place], [place] 6274883 Loss Prevention Consultant: MORENO Ortegaonocytes (Bld) [#/Vol]0.82 10*3/uLNormal0.10-1.20 The [facility] Medical CenterComment on above:Performed By: #### CMPX, CDP #### [address] [place], [place] 2841583 Loss Prevention Consultant: MORENO Ortegaonocytes/100 WBC (Bld)9 %Normal3-12The [facility] Of Toledo Medical CenterComment on above:Performed By: #### CMPX, CDP #### [address] [place], [place] 7994983 Loss Prevention Consultant: Khadar Tang MDNeutrophil (Seg)69 %Orsm59-40EqeokThe University Of Toledo Medical Center Comment on above:Performed By: #### CMPX, CDP #### [address] [place] [address] Loss Prevention Consultant: SOLEDAD Ortega Automated0.0 per 100 WBCNormal0.0The [facility] Of Toledo Medical CenterComment on above:Performed By: #### CMPX, CDP #### [facility] [address] [place], [place] 216[address]83 Loss Prevention Consultant: Thiago Ortega mean volume (Bld) [Entitic vol]8.8 fL Normal8.1-13.5The [facility] Of Toledo Medical CenterComment on above:Performed By: #### CMPX, CDP #### [address] [place], [place] 7291283 Loss Prevention Consultant: Laila Ortega (Bld) [#/Vol]205 10*3/xRHvbkrl682-768 The [facility]edo Medical CenterComment on above:Performed By: #### CMPX, CDP #### [address] [place], [place] 3045983 Loss Prevention Consultant: CLEOPATRA Ortega (Bld) [#/Vol]3.20 10*6/uLLow4.21-5.77The [facility] Of Toledo Medical CenterComment on above:Performed By: #### CMPX, CDP #### [address] [place], [place] 8443883 Loss Prevention Consultant: KEO Ortega (Bld) [#/Vol]9.3 10*3/uLNormal3.5-11.3MMcKitrick HospitalComment on above:Performed By: #### CMPX, CDP #### [address] [place], [place] 8194383 Loss Prevention Consultant: MYRON OrtegaG Rhythm Stripon [id number] HEALTHCARE SYSTEM GLENBEIGH LABBON SECOURS WRIGHT-PATTERSON MEDICAL CENTERGlucose, Whole Bloodon 57-13-9082Hgihhil [Mass/Vol]95 mg/dL74 - 100 mg/dLBON [facility] No Panel Informationon [id number] dictationRIVERSIDE SHORE MEMORIAL [facility] Retail Convergence Work Phone: b[facility] CityHook Work Phone: surgical Pathologyon [id number] Pathology (NOTE) -- Diagnosis -- POLYP, TRANSVERSE [...] SURGICAL PATHOLOGY CONSULTATION Patient Name: GANGA STINSON [facility] Rec: [id number] Path Number: [id number] [facility] [employer] ANATOMIC PATHOLOGY [address] [place] [address]. [place], [place] [address] NoWhite HospitalComment on above:Performed By: #### CMPX, CDP #### [facility] [address] [place] [address] [place] [address] Loss Prevention Consultant: Carlos Ortega occult stool #1on [id number], Stool #13 [facility]ARK[facility] HEALTHComment on above:30 23 Hemoglobin.gastrointestinal spec 1 Ql (Stl)NegativeNEGATIVEBON CENTRAL VALLEY GENERAL HOSPITALSonicSurg InnovationsTime, Stool #[id number] [facility]ALTH CARE SYSTEMCBC auto differentialon [id number] Eos #0.63HighBON CITY OF HOPE, [email or web address] [facility] Retail ConvergenceAbsolute Immature Granulocyte0.07B[facility] H[facility], [email or web address] [facility] Retail ConvergenceAbsolute Lymph #1.63BON CITY OF HOPE, [email or web address] UN[facility]ITY HOS[facility]ITALS BEACHWO[facility] MEDICAL CENTERSonicSurg InnovationsAbsolute [place] #0.76BON CITY OF HOPE, [email or web address] MERCY HEALTHBasophils AbsoluteBON SECOURS [facility] HEALTHBasophils/100 WBC (Bld)0 %0 - 2 %BON SECOCHSNER [facility] HEALTH Eosinophils/100 WBC (Bld)7 %High1 - 4 %[facility] HEALTHHematocrit (Bld) [Volume fraction]24.6 %Low40.7 - 50.3 %[facility]ARK[facility] HEALTHHemoglobin (Bld) [Mass/Vol]7.6 g/dLLow13.0 - 17.0 g/dLBON SECCINCINNATI VA MEDICAL CENTERImmature granulocytes/100 WBC (Bld)1 %Xpgd2UQJ [facility] HEALTHInterpretation and review of laboratory resultsAbnormalBON SECCINCINNATI VA MEDICAL CENTERLymphocytes/100 WBC (Bld)19 %Low24 - 43 %BON OHIOHEALTHH (RBC) [Entitic mass]23.7 pgLow 25.2 - 33.5 pgBON SECOHIO STATE HARDING HOSPITALHC (RBC) [Mass/Vol]30.9 g/dL28.4 - 34.8 g/dLBON SECOHIO STATE HARDING HOSPITALV (RBC) [Entitic vol]76.6 fLLow82.6 - 102.9 fLBANNER THUNDERBIRD MEDICAL CENTER SECCINCINNATI VA MEDICAL CENTERMonocytes/100 WBC (Bld)9 %3 - 12 %[facility] NRBC Automated0.00.0 per 100 WBCBON SECOCHSNER MEDICAL CENTER HEALTHPlatelet distribution width (Bld) [Ratio]15.9 %High11.8 - 14.4 %BON SECOCHSNER MEDICAL CENTER HEALTHPlatelet mean volume (Bld) [Entitic vol]8.9 fL8.1 - 13.5 fLBON SECOCHSNER MEDICAL CENTER HEALTHPlatelets (Bld) [#/Vol]223 10*3/uLBON SECOURS [facility] HEALTHRBC (Bld) [#/Vol]3.21 10*6/uLLow 4.21 - 5.77 m/uLBON PARKVIEW HEALTHSegmented neutrophils/100 WBC (Bld)64 % 36 - 65 %BON SECOCHSNER MEDICAL CENTER HEALTHSegs Absolute5.60BON [facility] WRIGHT-PATTERSON MEDICAL CENTERWBC (Bld) [#/Vol]8.7 10*3/uLBON SECOURS [facility] HEALTHBON SECOURS MERCY HEALTHCBC with Diffon [id number]. Basophil<0.91Facdci5.00-0.20MerAshtabula County Medical Center HospitalComment on above:Performed By: #### TROPI #### [address] [place], [place] [address] Loss Prevention Consultant: Audra Ortega.Imm.Granulocyte0.07 k/uLNormal0.00-0.30[facility] HospitalComment on above:Performed By: #### TROPI #### [address] [place], [place] [address] Loss Prevention Consultant: Audra Ortega.Neutrophil (Seg)5.60 k/uLNormal1.50-8.10[facility] HospitalComment on above:Performed By: #### TROPI #### [address] [place], [place] [address] Loss Prevention Consultant: Khadar Tang MDBasophils/100 WBC (Bld)0 %Normal0-2MGalion Community Hospital HospitalComment on above:Performed By: #### TROPI #### [address] [place], [place] [address] Loss Prevention Consultant: Khadar Tang MDEosinophils (Bld) [#/Vol]0.63 10*3/uLHigh0.00-0.44 The [facility] Medical CenterComment on above:Performed By: #### TROPI #### [address] [place], [place] [address] Loss Prevention Consultant: Khadar Tang MDEosinophils/100 WBC (Bld)7 %High1-4The [facility] Medical CenterComment on above:Performed By: #### TROPI #### [address] [place], [facility]83 Loss Prevention Consultant: Khadar Tang MDErythrocyte distribution width (RBC) [Ratio]15.9 % High11.8-14.4[facility] HospitalComment on above:Performed By: #### TROPI #### [address] [place], [place] [address] Loss Prevention Consultant: Khadar Tang MDHematocrit (Bld) [Volume fraction]24.6 %Low 40.7-50.3[facility] HospitalComment on above:Performed By: #### TROPI #### [address] [place], [facility]83 Loss Prevention Consultant: Khadar Tang MDHemoglobin (Bld) [Mass/Vol]7.6 g/dLLow13.0-17.0 The [facility] Medical CenterComment on above:Performed By: #### TROPI #### [address] [place], [facility]83 Loss Prevention Consultant: Seven Ortegamature granulocytes/100 WBC (Bld)1 %Chbx4TygzuChillicothe Va Medical Center HospitalComment on above:Performed By: #### TROPI #### [address] [place], [facility]83 Loss Prevention Consultant: Kailyn Ortegamphocytes (Bld) [#/Vol]1.63 10*3/uLNormal 1.10-3.70[facility] HospitalComment on above:Performed By: #### TROPI #### [address] [place], [facility]83 Loss Prevention Consultant: Kailyn Ortegamphocytes/100 WBC (Bld)19 %Sbc07-47Eyhqi Tiffin HospitalComment on above:Performed By: #### TROPI #### [address] [place] [address] Loss Prevention Consultant: MORENO OrtegaCH (RBC) [Entitic mass]23.7 pgLow25.2-33.5[facility] HospitalComment on above:Performed By: #### TROPI #### [address] [place] [address] Loss Prevention Consultant: MORENO OrtegaCHC (RBC) [Mass/Vol]30.9 g/iZEusepi38.4-34.8[facility] HospitalComment on above:Performed By: #### TROPI #### [address] [place], [place] 7670783 Loss Prevention Consultant: MORENO OrtegaCV (RBC) [Entitic vol]76.6 fLLow82.6-102.9The [facility] Medical CenterComment on above:Performed By: #### TROPI #### [address] [place], [place] 8042683 Loss Prevention Consultant: MORENO Ortegaonocytes (Bld) [#/Vol]0.76 10*3/uLNormal0.10-1.20 [facility] HospitalComment on above:Performed By: #### TROPI #### [address] [place], [place] 2712483 Loss Prevention Consultant: MORENO Ortegaonocytes/100 WBC (Bld)9 %Normal3-12[facility] HospitalComment on above:Performed By: #### TROPI #### [address] [place] [address] Loss Prevention Consultant: Khadar Tang MDNeutrophil (Seg)64 %Yulexh38-22Gduwb Tiffin HospitalComment on above:Performed By: #### TROPI #### [address] [place], [place] 1186083 Loss Prevention Consultant: Khadar Tang MDNRBC Automated0.0 per 100 WBCNormal0.0[facility] HospitalComment on above:Performed By: #### TROPI #### [address] [place], [place] 2056983 Loss Prevention Consultant: Thiago Ortega mean volume (Bld) [Entitic vol]8.9 fL Normal8.1-13.5MerAshtabula County Medical Center HospitalComment on above:Performed By: #### TROPI #### [address] [place], [place] 7229983 Loss Prevention Consultant: Dewayne Ortegatesusan (Bld) [#/Vol]223 10*3/sBCojksf317-336 [facility] HospitalComment on above:Performed By: #### TROPI #### [address] [place] [address] Loss Prevention Consultant: Khadar Tang MDRBC (Bld) [#/Vol]3.21 10*6/uLLow4.21-5.77[facility] HospitalComment on above:Performed By: #### TROPI #### [address] [place], [facility]83 Loss Prevention Consultant: BERT OrtegaBC (Bld) [#/Vol]8.7 10*3/uLNormal3.5-11.3[facility] HospitalComment on above:Performed By: #### TROPI #### [address] [place] [address] Loss Prevention Consultant: SALLY Ortegaomp Metabolic Pr/rfx MGon 18-43-9241Dvwsygh [Mass/Vol]2.8 g/dLLow3.5-5.2[facility] HospitalComment on above:Performed By: #### TROPI #### [address] [place] [address] Loss Prevention Consultant: Khadar Tang MDAlbumin/Glob Ratio0.7Low1.0-2.5MerAshtabula County Medical Center HospitalComment on above:Performed By: #### TROPI #### [address] [place] [address] Loss Prevention Consultant: Lisa Ortega Phos75 U/ENnezly13-364Cnqmr [facility]in HospitalComment on above:Performed By: #### TROPI #### [address] [place], [place] 8043683 Loss Prevention Consultant: Khadar Tang MDALT [Catalytic activity/Vol]9 U/LNormal5-41MerSaint Mary's HospitalComment on above:Performed By: #### TROPI #### [address] [place], [place] 8187383 Loss Prevention Consultant: Osvaldo Ortega gap [Moles/Vol]6 mmol/LLow9-17[facility] HospitalComment on above:Performed By: #### TROPI #### [address] [place], [facility]83 Loss Prevention Consultant: Khadar Tang MDAST [Catalytic activity/Vol]10 U/LNormal<40MerAshtabula County Medical Center HospitalComment on above:Performed By: #### TROPI #### [address] [place], [facility]83 Loss Prevention Consultant: Khadar Tang MDBilirubin [Mass/Vol]0.3 mg/dLNormal0.3-1.2[facility] HospitalComment on above:Performed By: #### TROPI #### [address] [place], [place] 4284083 Loss Prevention Consultant: Khadar Tang MDBUN/CRE Bdmoo50Ydctll7-96Eibop [facility] Comment on above:Performed By: #### TROPI #### [address] [place], [place] 8162083 Loss Prevention Consultant: SALLY Ortegaalcium [Mass/Vol]8.7 mg/dLNormal8.6-10.4MerAshtabula County Medical Center HospitalComment on above:Performed By: #### TROPI #### [address] [place] [address] Loss Prevention Consultant: SALLY Ortegahloride [Moles/Vol]113 mmol/WLxsw02-874NeqraThe University Of Toledo Medical CenterComment on above:Performed By: #### TROPI #### [address] [place], [place] 1544583 Loss Prevention Consultant: Khadar Tang MDCO2 [Moles/Vol]20 mmol/ITvyhhm92-48RcvetThe University Of Toledo Medical CenterComment on above:Performed By: #### TROPI #### [address] [place], [place] 3256283 Loss Prevention Consultant: SALLY Ortegareatinine [Mass/Vol]0.97 mg/dLNormal0.70-1.20 The [facility] Medical CenterComment on above:Performed By: #### TROPI #### [address] [place], [facility]83 Loss Prevention Consultant: Khadar Tang MDGFR/1.73 sq M.predicted among non-blacks MDRD (S/P/Bld) [Vol rate/Area]mL/min/{1.73_m2}Normal>60The [facility] Medical CenterComment on above:Result Comment: These results are not [...] renal tubular secretion.Performed By: #### TROPI #### [address] [place] [address] Loss Prevention Consultant: Khadar Tang MDGlucose [Mass/Vol]144 mg/fEEzdm21-76RvufhMcKitrick HospitalComment on above:Performed By: #### TROPI #### [address] [place] [address] Loss Prevention Consultant: LAWRENCE Ortegaotassium [Moles/Vol]4.5 mmol/LNormal3.7-5.3[facility] HospitalComment on above:Performed By: #### TROPI #### [address] [place], [place] 1644383 Loss Prevention Consultant: Khadar Tang MDProtein [Mass/Vol]6.7 g/dLNormal6.4-8.3[facility] HospitalComment on above:Performed By: #### TROPI #### [address] [place], [place] 6[address]83 Loss Prevention Consultant: Khadar Tang MDSodium [Moles/Vol]139 mmol/JCzwida126-237Kqlkr [facility]in HospitalComment on above:Performed By: #### TROPI #### [address] [place], [place] 9677283 Loss Prevention Consultant: Khadar Tang MDUrea nitrogen [Mass/Vol]19 mg/dLNormal8-23[facility] HospitalComment on above:Performed By: #### TROPI #### [address] [place] [address] Loss Prevention Consultant: SALLY Ortegaomprehensive Metabolic Panel w/ Reflex to MGon 12-82-2354Wiivxrd [Mass/Vol]2.8 g/dLLow3.5 - 5.2 g/dLBON [facility] Albumin/Globulin [Mass ratio]0.7 {ratio}Low1.0 - 2.5B[facility] PARKVIEW HEALTHALP [Catalytic activity/Vol]75 U/L40 - 129 U/LBON PARKVIEW HEALTHALT [Catalytic activity/Vol]9 U/L5 - 41 U/LBON [facility]ARKVIEW HEALTHAnion gap [Moles/Vol]6 mmol/LLow9 - 17 mmol/LBON PARKVIEW HEALTHAST [Catalytic activity/Vol]10 U/L NINF - 40 U/LBON [facility]ARKVIEW HEALTHBilirubin [Mass/Vol]0.3 mg/dL0.3 - 1.2 mg/dLBON PARKVIEW HEALTHCalcium [Mass/Vol]8.7 mg/dL8.6 - 10.4 mg/dLBON PARKVIEW HEALTHChloride [Moles/Vol]113 mmol/LHigh98 - 107 mmol/LBON PARKVIEW HEALTHCO2 [Moles/Vol]20 mmol/L20 - 31 mmol/LBON [facility] Creatinine [Mass/Vol]0.97 mg/dL0.70 - 1.20 mg/dLBON PARKVIEW HEALTHGFR/1.73 sq M.predicted MDRD (S/P/Bld) [Vol rate/Area]- [facility] Comment on above: These results [...] that affects renal tubular secretion. Glucose [Mass/Vol]144 mg/uDXtug97 - 99 mg/dLBON [facility]ALTH Interpretation and review of laboratory resultsAbnormalINOVA FAIRFAX HOSPITAL Potassium [Moles/Vol]4.5 mmol/L3.7 - 5.3 mmol/LBON PARKVIEW HEALTHProtein [Mass/Vol]6.7 g/dL6.4 - 8.3 g/dLBON PARKVIEW HEALTHSodium [Moles/Vol]139 mmol/L135 - 144 mmol/LBON [facility]ARKVIEW HEALTHUrea nitrogen [Mass/Vol]19 mg/dL8 - 23 mg/dLBON PARKVIEW HEALTHUrea nitrogen/Creatinine (Bld) [Mass ratio]209 - 20BON [facility]ARKVIEW HEALTHBON [facility]ARKVIEW HEALTHCult,Woundon 06-25-2022 Cult,WoundSpecimen Description .BUTTOCK Direct Exam FEW NEUTROPHILS MODERATE GRAM POSITIVE COCCI IN PAIRS MODERATE GRAM POSITIVE RODS Culture NORMAL SKIN ROBBIE Report Status FINAL 06/25/2022NoWhite HospitalComment on above: Performed By: #### TROPI #### [facility] [address] [place], [place] [address] Loss Prevention Consultant: FELIPE Ortega Rhythm Stripon 96-72-7540DAAINACMC HEALTHCARE SYSTEM GLENBEIGH LABBARNESVILLE HOSPITAL LABKettering Health Springfield LABINOVA FAIRFAX HOSPITALOccult Blood, Fecalon 30-32-9693Bhqwxb Blood 1NUniversity [facility]als [facility] Comment on above:Performed By: #### CMPX, CDP #### [facility] [address] [place], [place] [address] Loss Prevention Consultant: Vance Ortegaharris regional hospitalgriselda [address] Comment on above:Result Comment: Performed By: #### CMPX, CDP #### [facility] [address] [place], [place] [address] Loss Prevention Consultant: Kenny Ortega [address] [place] [address] Comment on above:Performed By: #### CMPX, CDP #### [address] [place] [address] Loss Prevention Consultant: SAMMI Ortegaurgical Pathologyon [id number] Pathology (NOTE) -- Diagnosis -- RIGHT ANKLE, [...] CONSULTATION Patient Name: GANGA STINSON Med Rec: [id number] Path Number: [id number] [facility] PATHOLOGISTS [facility] ANATOMIC PATHOLOGY [address] [place] [address]. [place], [place] [address] NormalThe University Of Toledo Medical CenterComment on above:Performed By: #### LEIGHA, CDP #### [facility] [address] [place], [place] [address] Loss Prevention Consultant: Khadar Tang MDTYPE AND SCREENon 98-60-3065FDB/RhNegativeBON [facility] Retail ConvergenceArm Band [id number] [facility] Bank Blood Product Expiration [id number] [facility] Bank ISBT Product Blood [id number] [facility] Galion HospitalLoopport Bank Unit Type and Rh NegativeBON PARKVIEW HEALTHNetSpendood product type Nom (BPU)Leukocyte Reduced Red CellBON [facility] Galion HospitalLoopport product unit ID (Dose) [#][id number] [facility] HEALTHCrossmatch ResultCOMPATIBLERIVERSIDE SHORE MEMORIAL HOSPITAL Retail ConvergenceDispense StatusTRANSFUSEDBON PARKVIEW HEALTHExpiration Date06/27/2022,2359BON PARKVIEW HEALTHProduct Code Blood [id number] SHORE MEMORIAL HOSPITAL Retail Convergence Transfusion StatusOK TO TRANSFUSEINOVA FAIRFAX HOSPITALUnit Wykcyyh3ZFJ PARKVIEW HEALTHUnit Issue Date/[id number] [facility] CARE SYSTEMAPTTon 44-05-8101hODU Coag (Bld) [Time]35.6 sHigh26.8-34.8 The [facility] Of [facility] Medical CenterComment on above:Result Comment: IV Heparin Therapy Range: 62.0-94.0Performed By: #### LEIGHA, CDP #### [address] [place] [place] [address] Loss Prevention Consultant: Khadar Tang MDB12/Folate Panelon 51-20-9597Qihuzzvzg (Vitamin B12) [Mass/Vol]446 pg/lKYfphpl042-0727Ytiwe Tiffin HospitalComment on above: Performed By: #### CMPX, CDP #### [facility] [address] [place], [place] [address] Loss Prevention Consultant: Apple Ortega Acid8.2 ng/mLNormal>4.8[facility] Comment on above:Performed By: #### CMPX, CDP #### [facility] [address] [place], [place] [address] Loss Prevention Consultant: Khadar Tang [facility] auto differentialon 69-45-0034Gjzwtreb Eos # 0.46HighINOVA FAIRFAX HOSPITALAbsolute Immature Granulocyte0.07INOVA FAIRFAX HOSPITALAbsolute Lymph #1.52INOVA FAIRFAX HOSPITALAbsolute [place] #0.53BON [facility]ARK[facility] HEALTHBasophils (Bld) [#/Vol]0.00 10*3/uLBON [facility] Hematocrit (Bld) [Volume fraction]21.7 %Low40.7 - 50.3 %[facility] Hemoglobin (Bld) [Mass/Vol]6.6 g/dLCritically low13.0 - 17.0 g/dLBON PARKVIEW HEALTHInterpretation and review of laboratory resultsAbnormalBON OHIOHEALTHH (RBC) [Entitic mass]23.4 pgLow25.2 - 33.5 pgLIFEPOINT HEALTHHC (RBC) [Mass/Vol]30.4 g/dL28.4 - 34.8 g/dLBON OHIOHEALTHV (RBC) [Entitic vol]77.0 fLLow82.6 - 102.9 fLINOVA FAIRFAX HOSPITALMorphology Álvaro (Bld) [Interp]HYPOCHROMIA PRESENTINOVA FAIRFAX HOSPITALNRBC Automated0.0 0.0 per 100 WBCINOVA FAIRFAX HOSPITALPlatelet distribution width (Bld) [Ratio] 16.2 %High11.8 - 14.4 %BON PARKVIEW HEALTHPlatelet mean volume (Bld) [Entitic vol]8.9 fL8.1 - 13.5 fLINOVA FAIRFAX HOSPITALPlatelets (Bld) [#/Vol] 208 10*3/uLBON PARKVIEW HEALTHRBC (Bld) [#/Vol]2.82 10*6/uLLow4.21 - 5.77 m/[facility] General HospitalSegmented neutrophils/100 WBC (Bld)61 %36 - 65 %[facility] HOSPITALSegs Absolute4.02[facility] HEALTHWBC (Bld) [#/Vol] 6.6 10*3/uLBON [facility] HEALTH CARE SYSTEMCBC with Diffon [id number]. Basophil0.00 k/uLNormal0.0-0.2[facility] HospitalComment on above:Performed By: #### CMPX, CDP #### [address] [place] [id number] Loss Prevention Consultant: Audra Ortega.Imm.Granulocyte0.07 k/uLNormal0.00-0.30[facility] CenterComment on above:Performed By: #### CMPX, CDP #### [address] Suárez, [place] [address] Loss Prevention Consultant: Audra Ortega.Neutrophil (Seg)4.02 k/uLNormal1.50-8.10[facility] CenterComment on above:Performed By: #### CMPX, CDP #### [address] [place], [place] [address] Loss Prevention Consultant: Khadar Tang MDEosinophils (Bld) [#/Vol]0.46 10*3/uLHigh0.00-0.44 [facility] CenterComment on above:Performed By: #### CMPX, CDP #### [address] [place] [address] Loss Prevention Consultant: Khadar Tang MDLymphocytes (Bld) [#/Vol]1.52 10*3/uLNormal 1.10-3.70[facility] HospitalComment on above:Performed By: #### CMPX, CDP #### [address] [place] [address] Loss Prevention Consultant: MORENO Ortegaonocytes (Bld) [#/Vol]0.53 10*3/uLNormal0.10-1.20 [facility] HospitalComment on above:Performed By: #### CMPX, CDP #### [address] [place], [place] [id number] Loss Prevention Consultant: MORENO Ortegaorphology Álvaro (Bld) [Interp]HYPOCHROMIANormal The [facility] CenterComment on above:Result Comment: PRESENTPerformed By: #### CMPX, CDP #### [address] [place] [address] Loss Prevention Consultant: Khadar Tang MDNeutrophil (Seg)61 %Mjtsuj58-89Ynabr [facility] HospitalComment on above:Performed By: #### CMPX, CDP #### [address] [place], [place] 0646283 Loss Prevention Consultant: Khadar Tang MDErythrocyte distribution width (RBC) [Ratio]16.2 % High11.8-14.4[facility]ola HospitalComment on above:Performed By: #### CMPX, CDP #### [address] [place], [place] 5169983 Loss Prevention Consultant: Khadar Tang MDHematocrit (Bld) [Volume fraction]21.7 %Low 40.7-50.3[facility] HospitalComment on above:Performed By: #### CMPX, CDP #### [address] [place], [place] 8[address]1383 Loss Prevention Consultant: Khadar Tang MDHemoglobin (Bld) [Mass/Vol]6.6 g/dLCritically low 13.0-17.0MerAs[facility]abula [facility] Center HospitalComment on above:Performed By: #### CMPX, CDP #### [address] [place], [place] [id number] Loss Prevention Consultant: PEEWEE Ortega (RBC) [Entitic mass]23.4 pgLow25.2-33.5The [facility] CenterComment on above:Performed By: #### CMPX, CDP #### [address] [place], [place] 8978483 Loss Prevention Consultant: PEEWEE OrtegaC (RBC) [Mass/Vol]30.4 g/dNIirhxe24.4-34.8The [facility] CenterComment on above:Performed By: #### CMPX, CDP #### [address] [place] [address] Loss Prevention Consultant: MANOHAR Ortega (RBC) [Entitic vol]77.0 fLLow82.6-102.9The [facility] CenterComment on above:Performed By: #### CMPX, CDP #### [address] [place], [place] 1397083 Loss Prevention Consultant: SOLEDAD Ortega Automated0.0 per 100 WBCNormal0.0The [facility] Medical CenterComment on above:Performed By: #### CMPX, CDP #### [address] [place], [place] 1668783 Loss Prevention Consultant: Thiago Ortega mean volume (Bld) [Entitic vol]8.9 fL Normal8.1-13.5The [facility] CenterComment on above:Performed By: #### CMPX, CDP #### [address] [place] [address] Loss Prevention Consultant: Dewayne Ortegatesusan (Bld) [#/Vol]208 10*3/xLDdgwpn161-471 [facility] CenterComment on above:Performed By: #### CMPX, CDP #### [facility] [address] [place] [address] Loss Prevention Consultant: VIKY OrtegaBC (Bld) [#/Vol]2.82 10*6/uLLow4.21-5.77[facility] Psych[facility] HospitalComment on above:Performed By: #### CMPX, CDP #### [address] [place] [address] Loss Prevention Consultant: BERT OrtegaBC (Bld) [#/Vol]6.6 10*3/uLNormal3.5-11.3[facility] HospitalComment on above:Performed By: #### CMPX, CDP #### [address] [place], [place] [id number] Loss Prevention Consultant: Khadar Tang MDBasophils/100 WBC (Bld)0 %Normal0-2BON [facility] on above:Performed By: #### CMPX, CDP #### [address] [place], [place] 4281283 Loss Prevention Consultant: Khadar Tang MDEosinophils/100 WBC (Bld)7 %High1-4BON [facility] on above:Performed By: #### CMPX, CDP #### [address] [place] [address] Loss Prevention Consultant: Seven Ortegamature granulocytes/100 WBC (Bld)1 %Otok9XPJ [facility] on above:Performed By: #### CMPX, CDP #### [address] [place], [place] 3736283 Loss Prevention Consultant: Khadar Tang MDLymphocytes/100 WBC (Bld)23 %Vjw93-20IDL [facility]ALTHComva medical center on above:Performed By: #### CMPX, CDP #### [address] [place], [place] 1507983 Loss Prevention Consultant: Khadar Tang, MDMonocytes/100 WBC (Bld)8 %Normal3-12BON SECCINCINNATI VA MEDICAL CENTERComment on above:Performed By: #### CMPX, CDP #### [address] [place], [place] 1956583 Loss Prevention Consultant: SALLY Ortegaomp Metabolic Pr/rfx MGon 35-36-6283Xsygkcq [Mass/Vol]2.4 g/dLLow3.5-5.2MercCharlotte Hungerford HospitalComment on above:Performed By: #### CMPX, CDP #### [address] [place], [place] 1052783 Loss Prevention Consultant: Khadar Tang MDAlbumin/Glob Ratio0.6Low1.0-2.5The [facility] Medical CenterComment on above:Performed By: #### CMPX, CDP #### [address] [place], [place] 2906583 Loss Prevention Consultant: Juan Ortegakaline Phos75 U/BUgzicm17-891KmofwThe University Of Toledo Medical CenterComva medical center on above:Performed By: #### CMPX, CDP #### [address] [place] [address] Loss Prevention Consultant: Khadar Tang MDALT [Catalytic activity/Vol]9 U/LNormal5-41The [facility] CenterComva medical center on above:Performed By: #### CMPX, CDP #### [address] [place] [address] Loss Prevention Consultant: Khadar Tang MDAnion gap [Moles/Vol]7 mmol/LLow9-17The [facility] CenterComva medical center on above:Performed By: #### CMPX, CDP #### [address] [place], [place] 8797083 Loss Prevention Consultant: Khadar Sturtz, MDAST [Catalytic activity/Vol]11 U/LNormal<40[facility] HospitalComment on above:Performed By: #### CMPX, CDP #### [facility] [address] [place] [address] Dr. [place], [place] 8308883 Loss Prevention Consultant: Khadar Tang MDBilirubin [Mass/Vol]mg/dLLow0.3-1.2MGalion Community Hospital HospitalComment on above:Performed By: #### CMPX, CDP #### [facility] [address] [place] [address] [address] [place] [address] Loss Prevention Consultant: Khadar Tang MDBUN/CRE Hcsvn70Qhmc1-71SckskThe [facility] Of [facility] Comment on above:Performed By: #### CMPX, CDP #### [address] [place], [place] 5609583 Loss Prevention Consultant: SALLY Ortegaalcium [Mass/Vol]8.5 mg/dLLow8.6-10.4The [facility] Medical CenterComment on above:Performed By: #### CMPX, CDP #### [address] [place] [address] Loss Prevention Consultant: SALLY Ortegahloride [Moles/Vol]115 mmol/ITdmt22-479MhwerThe University Of Toledo Medical CenterComment on above:Performed By: #### CMPX, CDP #### [address] [place] [address] Loss Prevention Consultant: Khadar Tang MDCO2 [Moles/Vol]18 mmol/PBqz93-22Bnbqk [facility] HospitalComment on above:Performed By: #### CMPX, CDP #### [address] [place] [address] Loss Prevention Consultant: SALLY Ortegareatinine [Mass/Vol]1.11 mg/dLNormal0.70-1.20 [facility] HospitalComment on above:Performed By: #### CMPX, CDP #### [address] [place] [address] Loss Prevention Consultant: Khadar Tang MDGFR/1.73 sq M.predicted among non-blacks MDRD (S/P/Bld) [Vol rate/Area]mL/min/{1.73_m2}Normal>60[facility] HospitalComment on above:Result Comment: These results are [...] tubular secretion.Performed By: #### CMPX, CDP #### [address] [place] [address] Loss Prevention Consultant: Khadar Tang MDGlucose [Mass/Vol]137 mg/iSVqzb55-45Qgfek [facility] HospitalComment on above:Performed By: #### CMPX, CDP #### [address] [place] [address] Loss Prevention Consultant: LAWRENCE Ortegaotassium [Moles/Vol]4.9 mmol/LNormal3.7-5.3[facility] HospitalComment on above:Performed By: #### CMPX, CDP #### [address] [place] [address] Loss Prevention Consultant: Khadar Tang MDProtein [Mass/Vol]6.3 g/dLLow6.4-8.3[facility] HospitalComment on above:Performed By: #### CMPX, CDP #### [address] [place] [address] Loss Prevention Consultant: Khadar Tang MDSodium [Moles/Vol]140 mmol/HTsfkem745-974Zmfkd [facility] HospitalComment on above:Performed By: #### CMPX, CDP #### [facility] [address] [place], [place] [address] Loss Prevention Consultant: Khadar Tang MDUrea nitrogen [Mass/Vol]26 mg/dLHigh8-23The [facility] Medical CenterComment on above:Performed By: #### LEIGHA CDP #### [facility] [address] [place], [place] [address] Loss Prevention Consultant: SALLY Ortegaomprehensive Metabolic Panel w/ Reflex to MGon 32-47-8693Ajkzini [Mass/Vol]2.4 g/dLLow3.5 - 5.2 g/dLBON [facility] Albumin/Globulin [Mass ratio]0.6 {ratio}Low1.0 - 2.5BON [facility] HEALTHALP [Catalytic activity/Vol]75 U/L40 - 129 U/LBON [facility]ALTHALT [Catalytic activity/Vol]9 U/L5 - 41 U/LBON [facility] HEALTHAnion gap [Moles/Vol]7 mmol/LLow9 - 17 mmol/LBON [facility] HEALTHAST [Catalytic activity/Vol]11 U/L NINF - 40 U/LBON [facility]ALTHBilirubin [Mass/Vol]mg/dLLow0.3 - 1.2 mg/dL BON [facility] HEALTHCalcium [Mass/Vol]8.5 mg/dLLow8.6 - 10.4 mg/dLBON [facility] HEALTHChloride [Moles/Vol]115 mmol/LHigh98 - 107 mmol/LBON [facility] HEALTHCO2 [Moles/Vol]18 mmol/LLow20 - 31 mmol/LBON [facility] Creatinine [Mass/Vol]1.11 mg/dL0.70 - 1.20 mg/dLBON [facility]ARKVIEW HEALTHGFR/1.73 sq M.predicted MDRD (S/P/Bld) [Vol rate/Area]- PINFBON [facility]ARKVIEW HEALTH Comment on above: These results are [...] that affects renal tubular secretion. Glucose [Mass/Vol]137 mg/hWKirp69 - 99 mg/dLBON CITY OF HOPE, [email or web address] [facility] MEDICAL CENTERSonicSurg Innovations Interpretation and review of laboratory resultsAbnormalADDISON GILBERT [email or web address] [facility] [employer] Potassium [Moles/Vol]4.9 mmol/L3.7 - 5.3 mmol/LBON [facility] HEALTHProtein [Mass/Vol]6.3 g/dLLow6.4 - 8.3 g/dLBON [facility] HEALTHSodium [Moles/Vol]140 mmol/L135 - 144 mmol/LBON [facility] Retail ConvergenceUrea nitrogen [Mass/Vol]26 mg/dL High8 - 23 mg/dLBON [facility] Retail ConvergenceUrea nitrogen/Creatinine (Bld) [Mass ratio]30Tpdw5 - 20BON [facility] SYSTEMCulture, Wound Aerobic Onlyon 46-72-2719Wnhvndqmzlcrmw and review of laboratory resultsAbnormal BON [facility] HEALTHMicroorganism identified Cx Nom (Unsp spec)NORMAL SKIN FLORABON [facility] Retail ConvergenceMicroorganism or agent identified Nom (Unsp spec) FEW NEUTROPHILSAbnormalADDISON GILBERT [email or web address] [facility] CENTERSpecimen Description.BUTTOCKBON [facility] MEDICAL CENTERKeepconEKG 12 Leadon 58-34-2702Muulnb Rate 64BPMBON CITY OF HOPE, [email or web address] [facility] CENTERSonicSurg Innovations Work Phone: p [id number] [email or web address] [facility] CENTERSonicSurg Innovations Work Phone: p-R [id number] [facility] HospitalKeepcon Work Phone: Q-T [id number] [facility] HospitalKeepcon Work Phone: QRS [id number] [facility] HospitalKeepcon Work Phone: QTc Calculation [phone] [facility] HospitalKeepcon Work Phone: r [id number] [email or web address] [facility]ENTERSonicSurg Innovations Work Phone: T [id number] SECOURS MERCCereSoft Phone: Ventricular [id number] CAREPLEX HOSPITAL [employer] Phone: Normal sinus rhythm Inferior infarct , age undetermined Abnormal ECG When compared with ECG of 22-JUN-2022 17:28, Minimal criteria for Inferior infarct is now Present Confirmed by Michelle Noe MD ([id number]) on 06/24/2022 10:31:[address] [facility] Michelle Noe MD - 06/24/2022 Normal sinus rhythm Inferior infarct , age undetermined Abnormal ECG When compared with ECG of 22-JUN-2022 17:28, Minimal criteria for Inferior infarct is now Present Confirmed by Michelle Noe MD ([id number]) on 06/24/2022 10:31:37 PM [facility] [employer] Phone: bON [facility] [employer] Phone: eKG Rhythm Stripon 68-33-6428PWLCAHIGHLANDS BEHAVIORAL HEALTH SYSTEM Echocardiogram complete 2D with doppler with coloron 69-27-4990Wzkq ventricular Ejection [id number] [place] [address] [employer] Phone: lVEF MODALITYECHUVA [facility]ALTH [facility] BOSS Metrics Phone: [facility] Transthoracic Echocardiography Report (TTE) Patient Name ALLOWAY Date of Study 06/24/2022 GANGA Cristina Date of 1960 Gender Male Age 61 year(s) Race Room Number 0334 Height: 71 inch, 180.34 cm Corporate ID [id number] Weight: 252 pounds, 114.3 kg # Patient Acct [id number] BSA: 2.33 m^2 BMI: 35.15 kg/m^2 # MR # [id number] Director Of Recruitment TriciaJeanette sullivan Interpreting Physician Michelle Noe Fellow Referring Nurse Shelly Mondragon, Practitioner GANTRY RIGGER Interpreting Referring Physician Fellow Type of Study [...] Result, Unknown Provider - 06/24/2022 [facility] Transthoracic Echocardiography Report (TTE) Patient Name ALLOWAY Date of Study 06/24/2022 GANGA Evans Date of 1960 Gender Male Age 61 year(s) Race Room Number 0334 Height: 71 inch, 180.34 cm Corporate ID [id number] Weight: 252 pounds, 114.3 kg # Patient Acct [id number] BSA: 2.33 m^2 BMI: 35.15 kg/m^2 # MR # [id number] Director Of Recruitment Jeanette Clarke Interpreting Physician Michelle Noe Fellow [...] Wall E/E':9.8 [facility] Work Phone: bON [facility] Work Phone: Glucose, Whole Bloodon 91-10-7703Pjecjsw [Mass/Vol]114 mg/eFJieb40 - 100 mg/dLBON PARKVIEW HEALTHInterpretation and review of laboratory resultsAbDe Smet Memorial Hospital Hemoglobin and Hematocriton 19-45-4855Oeefccxevg (Bld) [Volume fraction]25.1 % Low40.7 - 50.3 %[facility]IRFAX HOSPITALHemoglobin (Bld) [Mass/Vol]7.8 g/dLLow 13.0 - 17.0 g/dLBON [facility]ARKVIEW HEALTHInterpretation and review of laboratory resultsAbDe Smet Memorial HospitalHgb/Hcton 06-32-9990Mwnptlzlyv (Bld) [Volume fraction]25.1 %Low40.7-50.3[facility] HospitalComment on above:Performed By: #### LEIGHA, CDP #### [facility] [address] [place] [address] [address] [place], [place] [address] Loss Prevention Consultant: Khadar Tang MDHemoglobin (Bld) [Mass/Vol]7.8 g/dLLow13.0-17.0 The [facility] Medical CenterComment on above:Performed By: #### LEIGHA, CDP #### [facility] [address] [place] [address] Dr. [place], [place] 1835483 Loss Prevention Consultant: Alex Ortega Binding Cap.on 06-24-2022% Fe Keaxczlevj35 % Ptv29-81RbkjkThe University Of Toledo Medical CenterComment on above:Performed By: #### CMPX, CDP #### [address] [place], [place] 2656383 Loss Prevention Consultant: Alex Ortega [Mass/Vol]33 ug/iJXls84-235QtardThe University Of Toledo Medical CenterComment on above:Performed By: #### CMPX, CDP #### [address] [place], [place] 0478683 Loss Prevention Consultant: Rebekah Ortegatal Fe Binding Sgc943 ug/jIGrp970-905RolpdThe University Of Toledo Medical CenterComment on above:Performed By: #### CMPX, CDP #### [address] [place], [place] 2157383 Loss Prevention Consultant: Khadar Tang MDUnbound Fe Bind Eli715 ug/kQXzedhg793-362UuqnhThe University Of Toledo Medical CenterComment on above:Performed By: #### CMPX, CDP #### [address] [place], [place] 1440383 Loss Prevention Consultant: Alex Ortega and Kimberley 99-08-6185Ueknydjdbhashz and review of laboratory resultsAbnormalBON [facility] Hospitaln [Mass/Vol]33 ug/dLLow59 - 158 ug/dLBON [facility] Hospitaln binding capacity [Mass/Vol] 175 ug/nYErw361 - 450 ug/dLBON [facility] Hospitaln Kdriwayxpr76 %Low20 - 55 %BON [facility]ARK[facility] HEALTHUIBC142 ug/dL112 - 347 ug/dLBON [facility] BON [facility] HEALTHLaboratory - Microbiology and Antimicrobial susceptibilityon 61-09-2215Ramsjrhnzdgox or agent identified Nom (Unsp spec) PositiveAbnormalINOVA FAIRFAX HOSPITALLipid Panelon 06-11-1452Otftwdzpjus [Mass/Vol]147 mg/dLNINF - 200 mg/dLBON [facility]ARK[facility] HEALTHComment on above: Cholesterol Guidelines: <200 Desirable 200-240 Borderline >240 Undesirable Cholesterol in HDL [Mass/Vol]28 mg/dLLow40 - PINF mg/dLBFORT BELVOIR COMM[facility] Comment on above: HDL Guidelines: <40 Undesirable 40-59 Borderline >59 Desirable Cholesterol in LDL [Mass/Vol]98 mg/dL0 - 130 mg/dLBON [facility] Comment on above: LDL Guidelines: <100 Desirable 100-129 Near to/above Desirable 130-159 Borderline >159 Undesirable Direct (measured) LDL and calculated LDL are not interchangeable tests. Cholesterol.total/Cholesterol in HDL [Mass ratio]5.3 {ratio}HighNINF - 5BON [facility] HEALTHInterpretation and review of laboratory resultsAbnoMary Washington HospitalTriglyceride [Mass/Vol]107 mg/dLNINF - 150 mg/dLBON [facility]ARKVIEW HEALTHComment on above: Triglyceride Guidelines: <150 Desirable 150-199 Borderline 200-499 High >499 Very high Based on AHA Guidelines for fasting triglyceride, December 2011. [facility]OVA FAIRFAX HOSPITALLipid Profileon 40-78-1858Blzimqplfgd [Mass/Vol]147 mg/dLNormal<200MerSaint Mary's HospitalComment on above:Result Comment: Cholesterol Guidelines: <200 Desirable 200-240 Borderline >240 UndesirablePerformed By: #### TROPI #### [facility] [address] [place] [address] [place] [address] Loss Prevention Consultant: SALLY Ortegaholesterol in HDL [Mass/Vol]28 mg/dLLow>40[facility] HospitalComment on above:Result Comment: HDL Guidelines: <40 Undesirable 40-59 Borderline >59 DesirablePerformed By: #### TROPI #### [facility] [address] [place] [address] [place] [address] Loss Prevention Consultant: SALLY Ortegaholesterol in LDL [Mass/Vol]98 mg/dLNormal0-130 The [facility] CenterComment on above:Result Comment: LDL Guidelines: <100 Desirable 100-129 Near to/above Desirable 130-159 Borderline >159 Undesirable Direct (measured) LDL and calculated LDL are not interchangeable tests.Performed By: #### TROPI #### [address] [place] [address] Loss Prevention Consultant: SALLY Ortegaholesterol.total/Cholesterol in HDL [Mass ratio] 5.3 {ratio}High<5The [facility] CenterComment on above:Performed By: #### TROPI #### [address] [place] [address] Loss Prevention Consultant: Khadar Tang MDTriglyceride [Mass/Vol]107 mg/dLNormal<150The [facility] CenterComment on above:Result Comment: Triglyceride Guidelines: <150 Desirable 150-199 Borderline 200-499 High >499 Very high Based on AHA Guidelines for fasting triglyceride, December 2011.Performed By: #### TROPI #### [address] [place] [address] Loss Prevention Consultant: Suzanne Ortega 68-26-2694UUR Coag (PPP) [Relative time]1.1 {INR}NormalDelaware County Hospital on above:Result Comment: Therapeutic Range: Moderate Anticoagulant Intensity: INR = 2.0-3.0 High Anticoagulant Intensity: INR = 2.5-3.5Performed By: #### LORETOX, CDP #### [address] [place] [address] Loss Prevention Consultant: YESSENIA Ortega Coag (PPP) [Time]14.8 iZqearl72.9-14.8[facility] Hospital for Rehabilitationment on above:Performed By: #### LORETOX, CDP #### [address] [place] [address] Loss Prevention Consultant: Sherif Ortega 77-16-2128aTEW Coag (Bld) [Time]35.6 [facility] on above: IV Heparin Therapy Range: 62.0-94.0 Interpretation and review of laboratory resultsAbnormalMARY WASHINGTON HOSPITALProtime-INRon 51-57-8741PQO Coag (PPP) [Relative time] 1.1 {INR}[facility] on above: Therapeutic Range: Moderate Anticoagulant Intensity: INR = 2.0-3.0 High Anticoagulant Intensity: INR = 2.5-3.5 PT Coag (PPP) [Time]14.8 sBON [facility] Troponinon 27-63-6917Dajrtdvf, High Sens57 ng/LCritically high0-22[facility]iatric HospitalComva medical center on above:Result Comment: High Sensitivity Troponin values cannot be compared with other Troponin methodologies.Performed By: #### CMPX, CDP #### [facility] [address] [place] [address] [place] [address] Loss Prevention Consultant: Khadar Tang MDInterpretation and review of laboratory results [facility] Hospitalnin I.cardiac DL <= 0.01 ng/mL [Mass/Vol]57 ng/LCritically high0 - 22 ng/LBMary Washington Hospital on above:High Sensitivity Troponin values cannot be compared with other Troponin methodologies.[facility] Medical Centeroponin, High Sens58 ng/LCritically high 0-22[facility] on above:Result Comment: High Sensitivity Troponin values cannot be compared with other Troponin methodologies.Performed By: #### TROPI #### [facility] [address] [place] [address] [place] [place], [place] [address] Loss Prevention Consultant: Khadar Tang MDInterpretation and review of laboratory results AbnormalRussell County Medical Centernin I.cardiac DL <= 0.01 ng/mL [Mass/Vol]58 ng/LCritically high0 - 22 ng/LBON [facility] on above:High Sensitivity Troponin values cannot be compared with other Troponin methodologies.[facility] FAIRFAX HOSPITALTroponin, High Sens59 ng/LCritically high 0-22[facility]iatric HospitalComva medical center on above:Result Comment: High Sensitivity Troponin values cannot be compared with other Troponin methodologies.Performed By: #### CMPX, CDP #### [facility] [address] [place] [address] [place] [address] Loss Prevention Consultant: Khadar Tang MDInterpretation and review of laboratory results AbnormalBON PARKVIEW HEALTHTroponin I.cardiac DL <= 0.01 ng/mL [Mass/Vol]59 ng/LCritically high0 - 22 ng/LBON [facility] HEALTHComment on above:High Sensitivity Troponin values cannot be compared with other Troponin methodologies.[facility] FAIRFAX HOSPITALType + Screenon [id number] + Screen Sample Expiration 06/27/2022,2359 Arm Band Number [id number] ABO/Rh(D) A NEGATIVE Antibody Screen NEGATIVE Unit Number [id number] Blood Component Type Leukocyte Reduced Red Cell Unit Division 00 Status of Unit TRANSFUSED Transfusion Status OK TO TRANSFUSE Crossmatch Result COMPATIBLENormalThe University Of Toledo Medical CenterComment on above: Performed By: #### LORETOX, CDP #### [facility] [address] [place] [address] [address] [place], [place] [address] Loss Prevention Consultant: Khadar Tang MDVitamin B12 & Folateon 13-91-6146Aevgvxpns (Vitamin B12) [Mass/Vol]446 pg/mL232 - 1245 pg/mLINOVA FAIRFAX HOSPITALFolate [Mass/Vol]8.2 ng/mL4.8 - PINF ng/mLBON PARKVIEW HEALTHBON PARKVIEW HEALTHCBC auto differentialon 60-38-5245Xsctpngf Eos #0.65HighBON PARKVIEW HEALTHAbsolute Immature Granulocyte0.06[facility] HEALTHAbsolute Lymph # 1.94[facility] HEALTHAbsolute [place] #0.72B[facility]ICAL CENTERBasophils (Bld) [#/Vol]0.04 10*3/uLBON SECOURS [facility]TERSON MEDICAL CENTERBasophils/100 WBC (Bld)0 %0 - 2 %[facility] SECCINCINNATI VA MEDICAL CENTEREosinophils/100 WBC (Bld)7 %High1 - 4 %[facility] FAIRFAX HOSPITALHematocrit (Bld) [Volume fraction]25.0 %Low40.7 - 50.3 %[facility] FAIRFAX HOSPITALHemoglobin (Bld) [Mass/Vol]7.5 g/dLLow13.0 - 17.0 g/dLBON PARKVIEW HEALTHImmature granulocytes/100 WBC (Bld)1 %Bydc6[facility] Interpretation and review of laboratory resultsAbnormalBON [facility] Lymphocytes/100 WBC (Bld)22 %Low24 - 43 %[facility]H (RBC) [Entitic mass]23.3 pgLow25.2 - 33.5 pgBON [facility]ALTHHC (RBC) [Mass/Vol]30.0 g/dL28.4 - 34.8 g/dLBON OHIOHEALTHV (RBC) [Entitic vol]77.6 fLLow82.6 - 102.9 fLINOVA FAIRFAX HOSPITALMonocytes/100 WBC (Bld)8 %3 - 12 %[facility] FAIRFAX HOSPITALNRBC Automated0.00.0 per 100 WBCINOVA FAIRFAX HOSPITALPlatelet distribution width (Bld) [Ratio]16.4 %High11.8 - 14.4 %[facility] FAIRFAX HOSPITALPlatelet mean volume (Bld) [Entitic vol]8.7 fL8.1 - 13.5 fL IN[facility] FAIRFAX HOSPITALPlatelets (Bld) [#/Vol]263 10*3/uLINOVA FAIRFAX HOSPITALRBC (Bld) [#/Vol]3.22 10*6/uLLow4.21 - 5.77 m/[facility] Segmented neutrophils/100 WBC (Bld)62 %36 - 65 %IN[facility] FAIRFAX HOSPITALSegs Absolute5.55B[facility] PARKVIEW HEALTHWBC (Bld) [#/Vol]9.0 10*3/uLBON [facility] CARE SYSTEMCBC with Diffon [id number]. Basophil0.04 k/uLNormal0.00-0.20The University Of Toledo Medical CenterComment on above:Performed By: #### CMPX, CDP #### [facility] [address] [place] [place] [address] Loss Prevention Consultant: Audra Ortega.Imm.Granulocyte0.06 k/uLNormal0.00-0.30The University Of Toledo Medical CenterComment on above:Performed By: #### CMPX, CDP #### [address] [place] [place] [address] Loss Prevention Consultant: Audra Ortega.Neutrophil (Seg)5.55 k/uLNormal1.50-8.10The University Of Toledo Medical CenterComment on above:Performed By: #### CMPX, CDP #### [address] [place] [place] [address] Loss Prevention Consultant: Khadar Tang MDBasophils/100 WBC (Bld)0 %Normal0-2MGalion Community Hospital HospitalComment on above:Performed By: #### CMPX, CDP #### [address] [place] [place] [address] Loss Prevention Consultant: Khadar Tang MDEosinophils (Bld) [#/Vol]0.65 10*3/uLHigh0.00-0.44 The [facility] Medical CenterComva medical center on above:Performed By: #### CMPX, CDP #### [address] [place] [address] Loss Prevention Consultant: TOOTIE Ortegaosinophils/100 WBC (Bld)7 %High1-4[facility] HospitalComment on above:Performed By: #### CMPX, CDP #### [address] [place] [address] Loss Prevention Consultant: Khadar Tang MDErythrocyte distribution width (RBC) [Ratio]16.4 % High11.8-14.4The [facility] Of Toledo Medical CenterComment on above:Performed By: #### CMPX, CDP #### [address] Suárez, [place] [address] Loss Prevention Consultant: Khadar Tang MDHematocrit (Bld) [Volume fraction]25.0 %Low 40.7-50.3[facility] HospitalComment on above:Performed By: #### CMPX, CDP #### [address] [place] [address] Loss Prevention Consultant: Khadar Tang MDHemoglobin (Bld) [Mass/Vol]7.5 g/dLLow13.0-17.0 [facility] HospitalComment on above:Performed By: #### CMPX, CDP #### [address] [place] [place] [address] Loss Prevention Consultant: Khadar Tang MDImmature granulocytes/100 WBC (Bld)1 %Eoqw6Dmiks Tiffin HospitalComment on above:Performed By: #### CMPX, CDP #### [address] Suárez, [place] [address] Loss Prevention Consultant: Khadar Tang MDLymphocytes (Bld) [#/Vol]1.94 10*3/uLNormal 1.10-3.70[facility] HospitalComment on above:Performed By: #### CMPX, CDP #### [address] Suárez, [place] [address] Loss Prevention Consultant: Kailyn Ortegamphocytes/100 WBC (Bld)22 %Fto28-28Pyjvg [facility] HospitalComment on above:Performed By: #### CMPX, CDP #### [address] Suárez, [facility]83 Loss Prevention Consultant: MORENO OrtegaCH (RBC) [Entitic mass]23.3 pgLow25.2-33.5[facility] HospitalComment on above:Performed By: #### CMPX, CDP #### [address] Suárez, [facility]83 Loss Prevention Consultant: MORENO OrtegaCHC (RBC) [Mass/Vol]30.0 g/rRRdpqsd54.4-34.8The University Of Toledo Medical CenterComment on above:Performed By: #### CMPX, CDP #### [address] [place], [place] [address]69283 Loss Prevention Consultant: MORENO OrtegaCV (RBC) [Entitic vol]77.6 fLLow82.6-102.9The [facility] Of Toledo Medical CenterComment on above:Performed By: #### CMPX, CDP #### [address] [place], [place] [address]83 Loss Prevention Consultant: MORENO Ortegaonocytes (Bld) [#/Vol]0.72 10*3/uLNormal0.10-1.20 The [facility]edo Medical CenterComment on above:Performed By: #### CMPX, CDP #### [address] [place] [address] Loss Prevention Consultant: MORENO Ortegaonocytes/100 WBC (Bld)8 %Normal3-12The [facility] Of Toledo Medical CenterComment on above:Performed By: #### CMPX, CDP #### [address] [place], [place] 3760783 Loss Prevention Consultant: Khadar Tang MDNeutrophil (Seg)62 %Bxlgli70-43BrinjThe University Of Toledo Medical CenterComment on above:Performed By: #### CMPX, CDP #### [address] [place] [address] Loss Prevention Consultant: Khadar Tang MDNRBC Automated0.0 per 100 WBCNormal0.0The [facility] Of [facility]edo Medical CenterComment on above:Performed By: #### CMPX, CDP #### [address] [place], [place] 3321083 Loss Prevention Consultant: LAWRENCE Ortegalatelet mean volume (Bld) [Entitic vol]8.7 fL Normal8.1-13.5[facility] HospitalComment on above:Performed By: #### CMPX, CDP #### [address] [place] [address] Loss Prevention Consultant: Laila Ortega (d) [#/Vol]263 10*3/hHAqlgzh819-695 [facility] HospitalComment on above:Performed By: #### CMPX, CDP #### [address] [place], [place] [address] ([address] Loss Prevention Consultant: CLEOPATRA Ortega ([facility]) [#/Vol]3.22 10*6/uLLow4.21-5.77MerAshtabula County Medical Center HospitalComment on above:Performed By: #### CMPX, CDP #### [address] [place] [address] Loss Prevention Consultant: KEO Ortega ([facility]) [#/Vol]9.0 10*3/uLNormal3.5-11.3[facility] HospitalComment on above:Performed By: #### CMPX, CDP #### [address] [place] [address] Loss Prevention Consultant: SALLY Ortegaomp Metabolic Pr/rfx MGon 75-24-5206Oxhyaaq [Mass/Vol]2.9 g/dLLow3.5-5.2[facility] HospitalComment on above:Performed By: #### CMPX, CDP #### [address] [place], [place] 5053783 Loss Prevention Consultant: Khadar Tang MDAlbumin/Glob Ratio0.7Low1.0-2.5[facility] HospitalComment on above:Performed By: #### CMPX, CDP #### [address] [place] [address] Loss Prevention Consultant: Lisa Ortega Phos89 U/SKjzbju18-812EbrfkThe University Of Toledo Medical CenterComment on above:Performed By: #### CMPX, CDP #### [address] [place], [place] 6132183 Loss Prevention Consultant: Khadar Tang MDALT [Catalytic activity/Vol]11 U/LNormal5-41The [facility] Of Toledo Medical CenterComment on above:Performed By: #### CMPX, CDP #### [address] [place], [place] 8[address]3983 Loss Prevention Consultant: Khadar Tang MDAnion gap [Moles/Vol]8 mmol/LLow9-17The University Of Toledo Medical CenterComment on above:Performed By: #### CMPX, CDP #### [address] [place], [place] 4702183 Loss Prevention Consultant: Khadar Tang MDAST [Catalytic activity/Vol]12 U/LNormal<40[facility] HospitalComment on above:Performed By: #### CMPX, CDP #### [address] [place] [address] Loss Prevention Consultant: Khadar Tang MDBilirubin [Mass/Vol]0.2 mg/dLLow0.3-1.2MercCharlotte Hungerford HospitalComment on above:Performed By: #### CMPX, CDP #### [facility] [address] [place] [address] [place] [address] Loss Prevention Consultant: Khadar Tang MDBUN/CRE Zrzqf94Uail3-26GdjmiThe University Of [facility] Medical Center Comment on above:Performed By: #### CMPX, CDP #### [address] [place], [place] 3148983 Loss Prevention Consultant: Khadar Tang MDCalcium [Mass/Vol]9.0 mg/dLNormal8.6-10.4MerSaint Mary's HospitalComment on above:Performed By: #### CMPX, CDP #### [address] [place] [address] Loss Prevention Consultant: SALLY Ortegahloride [Moles/Vol]115 mmol/CUlcz76-881GwzjxThe University Of Toledo Medical CenterComment on above:Performed By: #### CMPX, CDP #### [address] [place] [address] Loss Prevention Consultant: SALLY OrtegaO2 [Moles/Vol]17 mmol/IOsc57-58MtdlpThe University Of Toledo Medical CenterComment on above:Performed By: #### CMPX, CDP #### [address] [place], [place] 9935283 Loss Prevention Consultant: SALLY Ortegareatinine [Mass/Vol]1.55 mg/dLHigh0.70-1.20The [facility] Of [facility] Medical CenterComment on above:Performed By: #### CMPX, CDP #### [address] [place] [address] Loss Prevention Consultant: Khadar Tang MDGFR/1.73 sq M.predicted among non-blacks MDRD (S/P/Bld) [Vol rate/Area]51 mL/min/{1.73_m2}Low>60[facility]iatric HospitalComment on above:Result Comment: These results are [...] tubular secretion.Performed By: #### CMPX, CDP #### [address] [place] [address] Loss Prevention Consultant: Khadar Tang MDGlucose [Mass/Vol]119 mg/aGQjcz59-78Kzlug [facility]iatric HospitalComment on above:Performed By: #### CMPX, CDP #### [address] [place] [address] Loss Prevention Consultant: LAWRENCE Ortegaotassium [Moles/Vol]5.4 mmol/LHigh3.7-5.3MGalion Community Hospital HospitalComment on above:Performed By: #### CMPX, CDP #### [address] [place], [place] 0399[address] Loss Prevention Consultant: Khadar Tang MDProtein [Mass/Vol]7.1 g/dLNormal6.4-8.3MGalion Community Hospital HospitalComment on above:Performed By: #### CMPX, CDP #### [address] [place], [place] [address]83 Loss Prevention Consultant: Khadar Tang MDSodium [Moles/Vol]140 mmol/LDbvpca679-511DiwvsThe University Of Toledo Medical CenterComment on above:Performed By: #### CMPX, CDP #### [address] [place], [place] 1729883 Loss Prevention Consultant: Khadar Tang MDUrea nitrogen [Mass/Vol]38 mg/dLHigh8-23The University Of Toledo Medical CenterComment on above:Performed By: #### CMPX, CDP #### [address] [place], [place] 6784283 Loss Prevention Consultant: SALLY Ortegaomprehensive Metabolic Panel w/ Reflex to MGon 25-90-3145Vaccwag [Mass/Vol]2.9 g/dLLow3.5 - 5.2 g/dLB[facility] Albumin/Globulin [Mass ratio]0.7 {ratio}Low1.0 - 2.5B[facility] PARKVIEW HEALTHALP [Catalytic activity/Vol]89 U/L40 - 129 U/LBON PARKVIEW HEALTHALT [Catalytic activity/Vol]11 U/L5 - 41 U/LBON [facility]ARKVIEW HEALTHAnion gap [Moles/Vol]8 mmol/LLow9 - 17 mmol/LBON PARKVIEW HEALTHAST [Catalytic activity/Vol]12 U/L NINF - 40 U/LBON [facility] HEALTHBilirubin [Mass/Vol]0.2 mg/dLLow0.3 - 1.2 mg/dLBON PARKVIEW HEALTHCalcium [Mass/Vol]9.0 mg/dL8.6 - 10.4 mg/dLBON PARKVIEW HEALTHChloride [Moles/Vol]115 mmol/LHigh98 - 107 mmol/LBON PARKVIEW HEALTHCO2 [Moles/Vol]17 mmol/LLow20 - 31 mmol/LB[facility] Creatinine [Mass/Vol]1.55 mg/dLHigh0.70 - 1.20 mg/dLBON [facility] GFR/1.73 sq M.predicted MDRD (S/P/Bld) [Vol rate/Area]51 mL/min/{1.73_m2}Low- PINFBON PARKVIEW HEALTHComment on above: These results are not intended [...] that affects renal tubular secretion. Glucose [Mass/Vol]119 mg/hGAsfv58 - 99 mg/dLBON PARKVIEW [facility]ALTH Interpretation and review of laboratory resultsAbnormalINOVA FAIRFAX HOSPITAL Potassium [Moles/Vol]5.4 mmol/LHigh3.7 - 5.3 mmol/LBON [facility] Protein [Mass/Vol]7.1 g/dL6.4 - 8.3 g/dLBON PARKVIEW HEALTHSodium [Moles/Vol]140 mmol/L135 - 144 mmol/LBON PARKVIEW HEALTHUrea nitrogen [Mass/Vol]38 mg/dLHigh8 - 23 mg/dLBON PARKVIEW HEALTHUrea nitrogen/Creatinine (Bld) [Mass ratio]35Evpa7 - 20B[facility] PARKVIEW HEALTHBON PARKVIEW HEALTHEKG 12 LeadOrdered By: Michelle Noe on 95-19-2247Ahpikb Rate60 BPMINOVA FAIRFAX HOSPITAL Work Phone: P [id number] Blued Work Phone: P-R [id number] [facility] [place] Work Phone: Q-T [id number] [facility] [place] Work Phone: QRS [id number] [facility] [place] Work Phone: QTc Calculation (Bazett)388 [facility] [place] Work Phone: R [id number] Blued Work Phone: T [id number] Blued Work Phone: Ventricular [id number] Blued Work Phone: BON Blued Work Phone: [phone] 12 Leadon 06-23-2022 Poor data quality, interpretation may be adversely affected Normal sinus rhythm Normal ECG When compared with ECG of 22-JUN-2022 13:14, (unconfirmed) Borderline criteria for Anterolateral infarct are no longer Present Criteria for Inferior infarct are no longer Present T wave inversion no longer evident in Inferior leads Confirmed by Michelle Noe MD ([id number]) on 06/23/2022 3:18:[address] [facility] Michelle Noe MD - 06/23/2022 Poor data quality, interpretation may be adversely affected Normal sinus rhythm Normal ECG When compared with ECG of 22-JUN-2022 13:14, (unconfirmed) Borderline criteria for Anterolateral infarct are no longer Present Criteria for Inferior infarct are no longer Present T wave inversion no longer evident in Inferior leads Confirmed by Michelle Noe MD ([id number]) on 06/23/2022 3:18:16 PM [facility] Blued Work Phone: eKG Rhythm Stripon 23-23-1735JRQTZCLEVELAND CLINIC SOUTH POINTE HOSPITALLimos.com [facility] MED[facility] CENTERSonicSurg InnovationsGlucose, Whole Bloodon 58-81-7758Vkdqscq [Mass/Vol]230 mg/nOLjln36 - 100 mg/dLBON [facility] HEALTHInterpretation and review of laboratory resultsAbnormalBON [facility]CY HEALTHBON [facility] HEALTHUrinalysison 76-47-2805Ufgedbuyv UrineNegativeNEGATIVEBON [facility] HEALTHColor, UAYellowYellowBON SECOCHSNER MEDICAL CENTER HEALTHGlucose Auto test strip (U) [Mass/Vol]NegativeNEGATIVEBON SECOURS [facility]ERY HEALTHKetones (U) [Mass/Vol]Negative NEGATIVEBON SECOCHSNER MEDICAL CENTER HEALTHLeukocyte esterase Auto test strip Ql (U) NegativeNEGATIVEBON SECOURS [facility] HEALTHNitrite Auto test strip Ql (U)Negative NEGATIVEBON SECOURS MERCY HEALTHProtein (U) [Mass/Vol]6.0 mg/dL5.0 - 9.0B[facility]ERY HEALTHProtein (U) [Mass/Vol]NegativeNEGATIVEBON [facility] HEALTHSpecific [place], UA1.0201.010 - 1.020B[facility]ARK[facility] HEALTHTurbidity UA ClearClearBON [facility] HEALTHUrine HgbNegativeNEGATIVEBON SECCINCINNATI VA MEDICAL CENTERUrobilinogen, UrineNormalNormalBON SECOURS [facility] MEDICAL CENTERBON SECOCHSNER [facility]ENTER HEALTHUrinalysis, Routineon 78-66-7108Wbpvpdetn, SemiQt,UrNegativeNormalNEGMerSaint Mary's HospitalComment on above:Performed By: #### UA #### [facility] [address] [place], [place] [address] Loss Prevention Consultant: Carlos Ortega, UrineNegativeNormalOhio Valley Surgical Hospital Comment on above:Performed By: #### UA #### [facility] [address] [place], [place] [address] Loss Prevention Consultant: Danitza Ortega ()ClearNormalCOhioHealth Grady Memorial Hospital Comment on above:Performed By: #### UA #### [facility] [address] [place], [place] [address] Loss Prevention Consultant: SALLY Ortegaolor (U)YellowNoTrinity Health System West Campus Comment on above:Performed By: #### UA #### [facility] [address] [place] [address] Dr. [place], [place] [id number] Loss Prevention Consultant: Khadar Tang MDGlucose Ql (U)NegativeNormalNEGMerSaint Mary's HospitalComment on above:Performed By: #### UA #### [facility] [address] [place] [address] Dr. Suárez, [facility]83 Loss Prevention Consultant: Khadar Tang MDKetones Ql (U)NegativeNormalNEGMercy Indianola HospitalComment on above:Performed By: #### UA #### [address] [place] [place] [address] Loss Prevention Consultant: Khadar Tang MDLeukocyte esterase Test strip Ql (U)NegativeNormal NEGMercy [facility] Psychiatric HospitalComment on above:Performed By: #### UA #### [address] [place], [facility]83 Loss Prevention Consultant: Khadar Tang MDNitrite,UrNegativeNormalOhio Valley Surgical Hospital Comment on above:Performed By: #### UA #### [address] [place], [facility]83 Loss Prevention Consultant: LAWRENCE Ortega,Ur6.1Pgkjgi0.0-9.0[facility] HospitalComment on above:Performed By: #### UA #### [facility] [address] [place] [address] Dr. Suáerz, [facility]83 Loss Prevention Consultant: LAWRENCE Ortegarotein Ql (U)NegativeNormalNEGChillicothe Va Medical Center HospitalComment on above:Performed By: #### UA #### [facility] [address] [place] [address] Dr. Suárez, [facility]83 Loss Prevention Consultant: SAMMI Ortegapec. [place],Ur1.249Zjxych7.010-1.020MerSaint Mary's HospitalComment on above:Performed By: #### UA #### [facility] [address] [place] [address] Loss Prevention Consultant: Tg OrtegaMercy Health St. Elizabeth Youngstown HospitalComment on above:Performed By: #### UA #### [facility] [address] [place], [place] [address] Loss Prevention Consultant: Khadar Tang MDXR ANKLE RIGHT (MIN 3 VIEWS)on 07-45-0788NS ANKLE RIGHT (MIN 3 VIEWS)EXAMINATION: THREE XRAY [...] Signed by: Derrick Squires MD 06/23/22 Final resultNoWhite Hospital1. Nonspecific diffuse subcutaneous edema. 2. Periostitis at the lateral aspect of the fibula distally. There was osteomyelitis in this region previously. This could reflect chronic osteomyelitis. Elsewhere, there is no subcutaneous air or evidence of osteomyelitis. [facility] RIS CONSOLIDATEDEXAMINATION: THREE XRAY VIEWS OF THE [...] lesion is noted. Calcaneal spurring appears unchanged. [facility] Derrick Barraza MD - 06/23/2022 EXAMINATION: THREE [...] no subcutaneous air or evidence of osteomyelitis. [employer] Phone: radiology Study observation (narrative)[employer] Phone: XR ANKLE RIGHT (MIN 3 VIEWS)Ordered By: Derrick Squires on [id number] [employer] Phone: Basic Metabolic Panelon 74-70-1703Kcmkm gap [Moles/Vol]9 mmol/L9 - 17 mmol/LBON OrderAhead HEALTHCalcium [Mass/Vol]9.5 mg/dL8.6 - 10.4 mg/dLBON OrderAhead HEALTHChloride [Moles/Vol]112 mmol/LHigh 98 - 107 mmol/LBON OrderAhead HEALTHCO2 [Moles/Vol]17 mmol/LLow20 - 31 mmol/L TheWrapCreatinine [Mass/Vol]2 mg/dLHigh0.70 - 1.20 mg/dLBON OrderAhead HEALTHGFR/1.73 sq M.predicted MDRD (S/P/Bld) [Vol rate/Area]38 mL/min/{1.73_m2}Low- PINFBON BluedComment on above: These results are not intended [...] that affects renal tubular secretion. Glucose [Mass/Vol]137 mg/dWBmsb78 - 99 mg/dLBON [facility] Interpretation and review of laboratory resultsAbnormalB[facility] Potassium [Moles/Vol]6.1 mmol/LCritically high3.7 - 5.3 mmol/LBON PARKVIEW HEALTHSodium [Moles/Vol]138 mmol/L135 - 144 mmol/LBON PARKVIEW HEALTHUrea nitrogen [Mass/Vol]45 mg/dLHigh8 - 23 mg/dLBON PARKVIEW HEALTHUrea nitrogen/Creatinine (Bld) [Mass ratio]48Dykj4 - 20BON [facility] CARE SYSTEMBasic Metabolic Profon 23-27-8098Rejdfqrke [Moles/Vol]6.1 mmol/LCritically high3.7-5.3[facility] Psychiatric HospitalComment on above:Performed By: #### TROPI #### [facility] [address] [place] [address] [address] [place], [place] [address] Loss Prevention Consultant: Khadar Tang MDAnijohn gap [Moles/Vol]9 mmol/LNormal9-17The [facility] Medical CenterComment on above:Performed By: #### TROPI #### [facility] [address] [place] [address] [place] [place], [place] [address] Loss Prevention Consultant: Khadar Tang MDBUN/CRE Ptzbe01Zepo5-10UlbdrThe University Of [facility] Center Comment on above:Performed By: #### TROPI #### [address] [place] [address] Loss Prevention Consultant: SALLY Ortegaalcium [Mass/Vol]9.5 mg/dLNormal8.6-10.4The [facility] Medical CenterComment on above:Performed By: #### TROPI #### [address] [place] [address] Loss Prevention Consultant: SALLY Ortegahloride [Moles/Vol]112 mmol/MGbjm02-253UggouThe University Of Toledo Medical CenterComment on above:Performed By: #### TROPI #### [address] [place], [place] [address] Loss Prevention Consultant: SALLY OrtegaO2 [Moles/Vol]17 mmol/ORta16-95AroknThe University Of Toledo Medical CenterComment on above:Performed By: #### TROPI #### [address] [place] [address] Loss Prevention Consultant: SALLY Ortegareatinine [Mass/Vol]2.00 mg/dLHigh0.70-1.20The [facility] Medical CenterComment on above:Performed By: #### TROPI #### [address] [place] [address] Loss Prevention Consultant: Khadar Tang MDGFR/1.73 sq M.predicted among non-blacks MDRD (S/P/Bld) [Vol rate/Area]38 mL/min/{1.73_m2}Low>60The [facility] Medical CenterComment on above:Result Comment: These results are not [...] renal tubular secretion.Performed By: #### TROPI #### [address] [place] [address] Loss Prevention Consultant: Khadar Tang MDGlucose [Mass/Vol]137 mg/vXZygb33-59Zeluk [facility] HospitalComment on above:Performed By: #### TROPI #### [address] [place] [address] Loss Prevention Consultant: SAMMI Ortegaodium [Moles/Vol]138 mmol/XUixgpf212-886LtqvyThe University Of Toledo Medical CenterComment on above:Performed By: #### TROPI #### [facility] [address] [place], [place] [address] Loss Prevention Consultant: Khadar Tang MDUrea nitrogen [Mass/Vol]45 mg/dLHigh8-23The [facility] Medical CenterComment on above:Performed By: #### TROPI #### [facility] [address] [place], [place] [address] Loss Prevention Consultant: Khadar Tang [facility] – SULPHURBC with Auto Differentialon [id number] Eos #0.86HighBON SECOURS [facility] CENTERY W[facility] HOSPITALAbsolute Immature Granulocyte0.09[facility]ERY HEALTHAbsolute Lymph #1.97[facility] HEALTHAbsolute [place] # 0.88B[facility] MEDICAL CENTERBasophils (Bld) [#/Vol]0.05 10*3/uLBON SECOURS [facility] CENTERY W[facility]IAL HOSPITALBasophils/100 WBC (Bld)0 %0 - 2 %[facility] W[facility]ANDOT MEMORIAL HOSPITALEosinophils/100 WBC (Bld)7 %High1 - 4 %[facility]TER[facility] MEDICAL CENTERHematocrit (Bld) [Volume fraction]27.6 %Low40.7 - 50.3 %BON SECNORTHWEST HOSPITALY HEALTHHemoglobin (Bld) [Mass/Vol]8.3 g/dLLow13.0 - 17.0 g/dLBON SECOURS [facility]PATTERSON MEDICAL CENTERImmature granulocytes/100 WBC (Bld)1 %Iwpd2JOX [facility] HEALTHInterpretation and review of laboratory resultsAbnormalBON [facility]ERY WYANDOT MEMORIAL HOSPITALLymphocytes/100 WBC (Bld)15 %Low24 - 43 %BON SECOHIO STATE HARDING HOSPITALH (RBC) [Entitic mass]23.3 pgLow 25.2 - 33.5 pgBON SECOHIO STATE HARDING HOSPITALHC (RBC) [Mass/Vol]30.1 g/dL28.4 - 34.8 g/dLBON SECOURS MERCY HEALTHMCV (RBC) [Entitic vol]77.5 fLLow82.6 - 102.9 fLBON SECUZMA WRIGHT-PATTERSON MEDICAL CENTERMonocytes/100 WBC (Bld)7 %3 - 12 %[facility] NRBC Automated0.00.0 per 100 WBCBON SECNORTHWEST HOSPITALY HEALTHPlatelet distribution width (Bld) [Ratio]16.2 %High11.8 - 14.4 %BON SECCINCINNATI VA MEDICAL CENTERPlatelet mean volume (Bld) [Entitic vol]8.6 fL8.1 - 13.5 fLBON SECOURS [facility] HEALTHPlatelets (Bld) [#/Vol]338 10*3/uLBON SECOURS [facility] HEALTHRBC (Bld) [#/Vol]3.56 10*6/uLLow 4.21 - 5.77 m/uLBON SECCINCINNATI VA MEDICAL CENTERSegmented neutrophils/100 WBC (Bld)70 % High36 - 65 %[facility] FAIR[facility] HOSPITALSegs Absolute8.91HighBON SECCINCINNATI VA MEDICAL CENTERWBC (Bld) [#/Vol]12.8 10*3/uLHighBON SECOURS WRIGHT-PATTERSON MEDICAL CENTERBON SECCINCINNATI VA MEDICAL CENTERAbsolute Eos #0.84HighBON SECOURS WRIGHT-PATTERSON MEDICAL CENTERAbsolute Immature Granulocyte0.06B[facility]ICAL CENTERAbsolute Lymph #1.69[facility] HOSPITALAbsolute [place] #0.82BON SECCINCINNATI VA MEDICAL CENTERBasophils (Bld) [#/Vol]0.04 10*3/uLBON SECCINCINNATI VA MEDICAL CENTERBasophils/100 WBC (Bld)0 %0 - 2 %[facility] HOSPITALEosinophils/100 WBC (Bld)7 %High1 - 4 %[facility] Hematocrit (Bld) [Volume fraction]27.1 %Low40.7 - 50.3 %[facility] [employer] Hemoglobin (Bld) [Mass/Vol]8.7 g/dLLow13.0 - 17.0 g/dLBON SECOCHSNER MEDICAL CENTER [employer] Immature granulocytes/100 WBC (Bld)1 %Vgtr7D[facility] Interpretation and review of laboratory resultsAbnormalBON [facility] Lymphocytes/100 WBC (Bld)14 %Low24 - 43 %[facility] ([facility]BC) [Entitic mass]25.3 pg25.2 - 33.5 pgBON [facility]ALTHHC (RBC) [Mass/Vol] 32.1 g/dL28.4 - 34.8 g/dLBON OHIOHEALTHV (RBC) [Entitic vol]78.8 fL Low82.6 - 102.9 fLINOVA FAIRFAX HOSPITALMonocytes/100 WBC (Bld)7 %3 - 12 %[facility]OSPITALNRBC Automated0.00.0 per 100 WBCINOVA [facility]IRFA[facility]PITAL Platelet distribution width (Bld) [Ratio]16.4 %High11.8 - 14.4 %[facility] HOSPITALPlatelet mean volume (Bld) [Entitic vol]9.4 fL8.1 - 13.5 fLINOVA FAIRFAX HOSPITALPlatelets (Bld) [#/Vol]345 10*3/uLINOVA [facility]PITAL RBC (Bld) [#/Vol]3.44 10*6/uLLow4.21 - 5.77 m/uLINOVA [facility]FAX [facility]PITAL Segmented neutrophils/100 WBC (Bld)71 %High36 - 65 %[facility] HOSPITALSegs Absolute9.06HighINOVA FAIRFAX HOSPITALWBC (Bld) [#/Vol]12.5 10*3/uLHighRIVERSIDE BEHAVIORAL HEALTH CENTERCBC with Diffon [id number]. Basophil0.05 k/uLNormal0.00-0.20The [facility] Medical CenterComment on above:Performed By: #### MARGARITO MG, CP #### [address] [place] [address] Loss Prevention Consultant: Audra Ortega.Imm.Granulocyte0.09 k/uLNormal0.00-0.30The [facility] Medical CenterComment on above:Performed By: #### MARGARITO, MG, CP #### [facility] [address] [place] [address] [place] [address] Loss Prevention Consultant: Audra Ortega.Neutrophil (Seg)8.91 k/uLHigh1.50-8.10[facility] HospitalComment on above:Performed By: #### CDP, MG, CP #### [address] [place] [place] [address] Loss Prevention Consultant: Khadar Tang MDBasophils/100 WBC (Bld)0 %Normal0-2[facility] HospitalComment on above:Performed By: #### CDP, MG, CP #### [address] [place] [address] Loss Prevention Consultant: Khadar Tang MDEosinophils (Bld) [#/Vol]0.86 10*3/uLHigh0.00-0.44 [facility] HospitalComment on above:Performed By: #### CDP, MG, CP #### [address] [place] [id number] Loss Prevention Consultant: TOOTIE Ortegaosinophils/100 WBC (Bld)7 %High1-4[facility] HospitalComment on above:Performed By: #### CDP, MG, CP #### [address] [place] [id number] Loss Prevention Consultant: Khadar Tang MDErythrocyte distribution width (RBC) [Ratio]16.2 % High11.8-14.4[facility] HospitalComment on above:Performed By: #### CDP, MG, CP #### [address] [place], [place] [address] Loss Prevention Consultant: Khadar Tang MDHematocrit (Bld) [Volume fraction]27.6 %Low 40.7-50.3Mst. rita's hospitaly [facility] HospitalComment on above:Performed By: #### CDP, MG, CP #### [address] [place] [id number] Loss Prevention Consultant: Khadar Tang MDHemoglobin (Bld) [Mass/Vol]8.3 g/dLLow13.0-17.0 [facility] HospitalComment on above:Performed By: #### CDP, MG, CP #### [address] [place], [place] [address] Loss Prevention Consultant: Khadar Tang MDImmature granulocytes/100 WBC (Bld)1 %Orzr7IldxcChillicothe Va Medical Center HospitalComment on above:Performed By: #### CDP, MG, CP #### [address] [place], [place] [address] Loss Prevention Consultant: Khadar Tang MDLymphocytes (Bld) [#/Vol]1.97 10*3/uLNormal 1.10-3.70[facility] HospitalComment on above:Performed By: #### CDP, MG, CP #### [address] [place], [facility]83 Loss Prevention Consultant: Kailyn Ortegamphocytes/100 WBC (Bld)15 %Zps57-54Chqyn Tiffin HospitalComment on above:Performed By: #### CDP, MG, CP #### [address] [place], [facility]83 Loss Prevention Consultant: MORENO OrtegaCH (RBC) [Entitic mass]23.3 pgLow25.2-33.5[facility] HospitalComment on above:Performed By: #### CDP, MG, CP #### [address] [place], [facility]83 Loss Prevention Consultant: MORENO OrtegaCHC (RBC) [Mass/Vol]30.1 g/fOMnfzcb21.4-34.8[facility] HospitalComment on above:Performed By: #### CDP, MG, CP #### [address] [place] [address] Loss Prevention Consultant: MORENO OrtegaCV (RBC) [Entitic vol]77.5 fLLow82.6-102.9The [facility] Medical CenterComment on above:Performed By: #### CDP, MG, CP #### [address] [place] [address] Loss Prevention Consultant: MORENO Ortegaonocytes (Bld) [#/Vol]0.88 10*3/uLNormal0.10-1.20 [facility] CenterComment on above:Performed By: #### CDP, MG, CP #### [address] [place] [address] Loss Prevention Consultant: MORENO Ortegaonocytes/100 WBC (Bld)7 %Normal3-12The [facility] CenterComment on above:Performed By: #### CDP, MG, CP #### [address] [place], [place] [address] Loss Prevention Consultant: Damir Ortegaophil (Seg)70 %Gqmv62-56QxqgvThe University Of [facility] Medical Center Comment on above:Performed By: #### CDP, MG, CP #### [address] [place] [address] Loss Prevention Consultant: Khadar Tang MDNRBC Automated0.0 per 100 WBCNormal0.0The [facility] CenterComment on above:Performed By: #### CDP, MG, CP #### [address] [place], [facility]83 Loss Prevention Consultant: LAWRENCE Ortegalatelet mean volume (Bld) [Entitic vol]8.6 fL Normal8.1-13.5The [facility] CenterComment on above:Performed By: #### CDP, MG, CP #### [address] [place], [place] 3523183 Loss Prevention Consultant: LAWRENCE Ortegalatelets (Bld) [#/Vol]338 10*3/cGBpjvdi868-487 [facility] HospitalComment on above:Performed By: #### MARGARITO, MG, CP #### [address] [place], [place] [address] Loss Prevention Consultant: VIKY OrtegaBC (Bld) [#/Vol]3.56 10*6/uLLow4.21-5.77MerAshtabula County Medical Center HospitalComment on above:Performed By: #### MARGARITO MG, CP #### [address] [place], [place] [address] Loss Prevention Consultant: KEO Ortega (Bld) [#/Vol]12.8 10*3/uLHigh3.5-11.3[facility] HospitalComment on above:Performed By: #### MARGARITO MG, CP #### [address] [place] [place] [address] Loss Prevention Consultant: Audra Ortega. Basophil0.04 k/uLNormal0.00-0.20[facility] HospitalComment on above:Performed By: #### TROPI #### [address] [place], [place] [address] Loss Prevention Consultant: MDAbs. ShannonImm.Granulocyte0.06 k/uLNormal0.00-0.30MerAshtabula County Medical Center HospitalComment on above:Performed By: #### TROPI #### [address] [place], [place] [address] Loss Prevention Consultant: Audra Ortega.Neutrophil (Seg)9.06 k/uLHigh1.50-8.10[facility] HospitalComment on above:Performed By: #### TROPI #### [address] [place] [place] [address] Loss Prevention Consultant: Joyce Ortegasophils/100 WBC (Bld)0 %Normal0-2[facility] HospitalComment on above:Performed By: #### TROPI #### [address] [place], [facility]83 Loss Prevention Consultant: Khadar Tang MDEosinophils (Bld) [#/Vol]0.84 10*3/uLHigh0.00-0.44 [facility] HospitalComment on above:Performed By: #### TROPI #### [address] [place], [place] [address] Loss Prevention Consultant: TOOTIE Ortegaosinophils/100 WBC (Bld)7 %High1-4[facility] HospitalComment on above:Performed By: #### TROPI #### [address] [place] [id number] Loss Prevention Consultant: Khadar Tang MDErythrocyte distribution width (RBC) [Ratio]16.4 % High11.8-14.4[facility] HospitalComment on above:Performed By: #### TROPI #### [address] [place], [facility]83 Loss Prevention Consultant: Khadar Tang MDHematocrit (Bld) [Volume fraction]27.1 %Low 40.7-50.3[facility] HospitalComment on above:Performed By: #### TROPI #### [address] [place], [place] [address] Loss Prevention Consultant: Khadar Tang MDHemoglobin (Bld) [Mass/Vol]8.7 g/dLLow13.0-17.0 [facility] HospitalComment on above:Performed By: #### TROPI #### [address] [place] [id number] Loss Prevention Consultant: Khadar Tang MDImmature granulocytes/100 WBC (Bld)1 %Tngr3CsjooChillicothe Va Medical Center HospitalComment on above:Performed By: #### TROPI #### [address] [place], [facility]83 Loss Prevention Consultant: Khadar Tang MDLymphocytes (Bld) [#/Vol]1.69 10*3/uLNormal 1.10-3.70[facility] HospitalComment on above:Performed By: #### TROPI #### [address] [place] [address] Loss Prevention Consultant: Kailyn Ortegamphocytes/100 WBC (Bld)14 %Dpp27-10Uqlht Tiffin HospitalComment on above:Performed By: #### TROPI #### [address] [place] [address] Loss Prevention Consultant: MORENO OrtegaCH (RBC) [Entitic mass]25.3 xkMeofcp04.2-33.5 [facility] HospitalComment on above:Performed By: #### TROPI #### [address] [place] [address] Loss Prevention Consultant: PEEWEE OrtegaC (RBC) [Mass/Vol]32.1 g/wPChlowq43.4-34.8[facility] HospitalComment on above:Performed By: #### TROPI #### [address] [place] [address] Loss Prevention Consultant: MORENO OrtegaCV (RBC) [Entitic vol]78.8 fLLow82.6-102.9[facility] HospitalComment on above:Performed By: #### TROPI #### [address] [place], [place] 8[address]83 Loss Prevention Consultant: MORENO Ortegaonocytes (Bld) [#/Vol]0.82 10*3/uLNormal0.10-1.20 [facility] HospitalComment on above:Performed By: #### TROPI #### [address] [place] [address] Loss Prevention Consultant: Khadar Tang MDMonocytes/100 WBC (Bld)7 %Normal3-12The [facility] Medical CenterComment on above:Performed By: #### TROPI #### [address] [place] [address] Loss Prevention Consultant: Khadar Tang MDNeutrophil (Seg)71 %Xwen15-39[facility] Comment on above:Performed By: #### TROPI #### [address] [place] [address] Loss Prevention Consultant: SOLEDAD Ortega Automated0.0 per 100 WBCNormal0.0The [facility] CenterComment on above:Performed By: #### TROPI #### [address] [place], [place] 8075483 Loss Prevention Consultant: Dewayne Ortegatelenard mean volume (Bld) [Entitic vol]9.4 fL Normal8.1-13.5The [facility] Medical CenterComment on above:Performed By: #### TROPI #### [address] [place] [address] Loss Prevention Consultant: LAWRENCE Ortegalatelets (Bld) [#/Vol]345 10*3/dMMyaokh531-028 [facility] CenterComment on above:Performed By: #### TROPI #### [facility] [address] [place] [address] Dr. [place], [place] 5246883 Loss Prevention Consultant: VIKY OrtegaBC (Bld) [#/Vol]3.44 10*6/uLLow4.21-5.77The [facility] CenterComment on above:Performed By: #### TROPI #### [address] [place], [place] 6515283 Loss Prevention Consultant: BERT OrtegaBC (Bld) [#/Vol]12.5 10*3/uLHigh3.5-11.3[facility] HospitalComment on above:Performed By: #### TROPI #### [facility] [address] [place] [address] Loss Prevention Consultant: Khadar Tang [facility] 27-48-2485Xgxofqe [Mass/Vol]3.2 g/dLLow3.5 - 5.2 g/dLBON PARKVIEW HEALTHAlbumin/Globulin [Mass ratio]0.7 {ratio}Low1.0 - 2.5BON [facility] HEALTHALP [Catalytic activity/Vol]101 U/L40 - 129 U/LBON [facility] HEALTHALT [Catalytic activity/Vol]8 U/L5 - 41 U/LBON [facility]ARKVIEW HEALTHAnion gap [Moles/Vol]11 mmol/L9 - 17 mmol/LBON [facility] HEALTHAST [Catalytic activity/Vol]13 U/LNINF - 40 U/LBON [facility] HEALTHBilirubin [Mass/Vol]mg/dLLow0.3 - 1.2 mg/dLBON [facility] HEALTHCalcium [Mass/Vol]9.1 mg/dL8.6 - 10.4 mg/dLBON [facility] HEALTHChloride [Moles/Vol]110 mmol/LHigh 98 - 107 mmol/LBON [facility] HEALTHCO2 [Moles/Vol]16 mmol/LLow20 - 31 mmol/L B[facility] HEALTHCreatinine [Mass/Vol]1.93 mg/dLHigh0.70 - 1.20 mg/dLBON KEC[facility] HEALTHGFR/1.73 sq M.predicted MDRD (S/P/Bld) [Vol rate/Area]39 mL/min/{1.73_m2}Low- PINFBON PARKVIEW HEALTHComment on above: These results are not intended [...] that affects renal tubular secretion. Glucose [Mass/Vol]148 mg/hOTuxr16 - 99 mg/dLBON PARKVIEW HEALTH Interpretation and review of laboratory resultsAbnormalBON [facility]ARK[facility] HEALTH Potassium [Moles/Vol]6.3 mmol/LCritically high3.7 - 5.3 mmol/LBON PARKVIEW HEALTHProtein [Mass/Vol]8.1 g/dL6.4 - 8.3 g/dLBON PARKVIEW HEALTHSodium [Moles/Vol]137 mmol/L135 - 144 mmol/LBON [facility]ARKVIEW HEALTHUrea nitrogen [Mass/Vol]49 mg/dLHigh8 - 23 mg/dLBON PARKVIEW HEALTHUrea nitrogen/Creatinine (Bld) [Mass ratio]00Bfbj8 - 20BON [facility] HEALTH CARE SYSTEMComp Metabolic Profon 83-82-5813Qkgsaiqkw [Mass/Vol]mg/dLLow 0.3-1.2[facility] HospitalComment on above:Performed By: #### CDP, MG, CP #### [address] [place] [address] Loss Prevention Consultant: Khadar Tang MDPotassium [Moles/Vol]6.3 mmol/LCritically high 3.7-5.3[facility] HospitalComment on above:Performed By: #### CDP, MG, CP #### [address] [place] [id number] Loss Prevention Consultant: Khadar Tang MDAlbumin [Mass/Vol]3.2 g/dLLow3.5-5.2[facility] HospitalComment on above:Performed By: #### CDP, MG, CP #### [address] [place] [address] Loss Prevention Consultant: Khadar Tang MDAlbumin/Glob Ratio0.7Low1.0-2.5The [facility] Medical CenterComment on above:Performed By: #### CDP, MG, CP #### [address] [place] [place] [address] Loss Prevention Consultant: Lisa Ortega Nann655 U/JDqmzsu12-029WkaifThe University Of Toledo Medical CenterComment on above:Performed By: #### CDP, MG, CP #### [address] [place], [place] 1748083 Loss Prevention Consultant: Khadar Tang MDALT [Catalytic activity/Vol]8 U/LNormal5-41[facility] HospitalComment on above:Performed By: #### CDP, MG, CP #### [address] [place], [place] 9400283 Loss Prevention Consultant: Khadar Tang MDAnion gap [Moles/Vol]11 mmol/LNormal9-17MerAshtabula [facility] Center HospitalComment on above:Performed By: #### CDP, MG, CP #### [address] [place], [place] 4641183 Loss Prevention Consultant: Khadar Tang MDAST [Catalytic activity/Vol]13 U/LNormal<40MerAshtabula County Medical Center HospitalComment on above:Performed By: #### CDP, MG, CP #### [address] [place], [place] 7[address]8583 Loss Prevention Consultant: Khadar Tang MDBUN/CRE Naqcm17Lhpp1-81RaxtoThe [facility] Of [facility] Center Comment on above:Performed By: #### CDP, MG, CP #### [address] [place], [place] [address]8983 Loss Prevention Consultant: Khadar Tang MDCalcium [Mass/Vol]9.1 mg/dLNormal8.6-10.4MerAshtabula County Medical Center HospitalComment on above:Performed By: #### CDP, MG, CP #### [address] [place] [address] Loss Prevention Consultant: Khadar Tang MDChloride [Moles/Vol]110 mmol/RPpkn69-917Ywyig Tiffin HospitalComment on above:Performed By: #### CDP, MG, CP #### [address] [place] [address] Loss Prevention Consultant: SALLY OrtegaO2 [Moles/Vol]16 mmol/VWus02-88RlegcThe University Of Toledo Medical CenterComment on above:Performed By: #### CDP, MG, CP #### [address] [place] [address] Loss Prevention Consultant: SALLY Ortegareatinine [Mass/Vol]1.93 mg/dLHigh0.70-1.20[facility] CenterComment on above:Performed By: #### MARGARITO, MG, CP #### [address] [place] [address] Loss Prevention Consultant: Khadar Tang MDGFR/1.73 sq M.predicted among non-blacks MDRD (S/P/Bld) [Vol rate/Area]39 mL/min/{1.73_m2}Low>60The [facility] CenterComment on above:Result Comment: These results are not [...] secretion.Performed By: #### MARGARITO, MG, CP #### [address] [place] [address] Loss Prevention Consultant: Khadar Tang MDGlucose [Mass/Vol]148 mg/tMVxwf63-37Racne [facility] HospitalComment on above:Performed By: #### MARGARITO, MG, CP #### [address] [place] [address] Loss Prevention Consultant: LAWRENCE Ortegarotein [Mass/Vol]8.1 g/dLNormal6.4-8.3[facility] HospitalComment on above:Performed By: #### CDP, MG, CP #### [facility] [address] [place], [place] 77[address]783 Loss Prevention Consultant: SAMMI Ortegaodium [Moles/Vol]137 mmol/RLdnclz697-684KyfvdThe University Of Toledo Medical CenterComment on above:Performed By: #### CDP, MG, CP #### [facility] [address] [place], [place] [address] Loss Prevention Consultant: Soo Ortega nitrogen [Mass/Vol]49 mg/dLHigh8-23The [facility] CenterComment on above:Performed By: #### MARGARITO, MG, CP #### [facility] [address] [place], [place] [address]30883 Loss Prevention Consultant: Khadar Tang MDEKG 12 LeadOrdered By: Michelle Noe on 06-22-2022 Atrial Thuz03VDRYYURadius Networks Phone: [phone] Idhq41nqfjdjmJUSShaker Phone: P-R Kkroaxqh026 [employer] Phone: Q-T Hocglzcg700 [employer] Phone: [phone] Wgbxnxpy70 [employer] Phone: QTc Calculation (Constantino)386 [employer] Phone: R [id number] SECOURS UNIVERS[facility] HOSPITALS BEACHWOOD MEDICAL CENTERCereSoft Phone: T Hunt-8degreesSihua Technology Phone: Ventricular [id number] Vaunte Phone: BON Vaunte Phone: EKG 12 Leadon 27-52-0675Dfahw bradycardia Inferior infarct , age undetermined Possible Anterolateral infarct , age undetermined Abnormal ECG When compared with ECG of 24-APR-2015 18:25, Vent. rate has decreased BY 39 BPM Borderline criteria for Anterolateral infarct are now Present T wave inversion now evident in Inferior leads QT has shortened Confirmed by Michelle Noe MD ([id number]) on 06/22/2022 10:09:[address] [facility] Michelle Noe MD - 06/22/2022 Sinus bradycardia Inferior infarct , age undetermined Possible Anterolateral infarct , age undetermined Abnormal ECG When compared with ECG of 24-APR-2015 18:25, Vent. rate has decreased BY 39 BPM Borderline criteria for Anterolateral infarct are now Present T wave inversion now evident in Inferior leads QT has shortened Confirmed by Michelle Noe MD ([id number]) on 06/22/2022 10:09:31 PM [facility] Work Phone: Magnesiumon [phone] [Mass/Vol]2.0 mg/dL Normal1.6-2.6[facility] HospitalComment on above:Performed By: #### CDP, MG, CP #### [facility] [address] [place] [address] Loss Prevention Consultant: Khadar Tang MDMagnesium [Mass/Vol]2.0 mg/dL1.6 - 2.6 mg/dLBON PARKVIEW HEALTHBON [facility] PELVIS WO CONon [id number] PELVIS WO CONEXAMINATION: CT PELVIS WO CON [...] Electronically authenticated by: JESUSITA PAPPAS Date: 2022-03-14 09:50Premier HealthGLYCOHEMOGLOBIN A1Con [id number] RECOMMENDATIONADA THERAPEUTIC TARGET 6.0 - 7.0 ACTION SUGGESTED > 7.0[facility] Comment on above:Performed By: #### A1C #### [facility] [address] [address] [address] Juan SmithGlucose [Mass/Vol]180 mg/dLNoHolzer Health SystemComment on above:Performed By: #### A1C #### [facility] [address] [address] [address] Juan SmithHbA1c (Bld) [Mass fraction]7.9 %Critically high<=6.0The [facility] SpringfieldComment on above:Performed By: #### A1C #### [facility] [address] [address] [address] Juan Verduzco,Aerobe/Anaerobeon 33-90-1788FhjovpovsxfExpyfmxh Description .TISSUE RIGHT MEDIAL HEEL POST IRRIGATIONSpecial Requests NOT REPORTEDDirect Ex am NO NEUTROPHILS SEEN NO BACTERIA SEEN Culture METHICILLIN RESISTANT STAPHYLOCOCCUS AUREUS SCANT GROWTH For susceptibility, refer to previous culture. STREPTOCOCCI, BETA HEMOLYTIC GROUP C SCANT GROWTH DIPHTHEROIDS SCANT GROWTH NO ANAEROBIC ORGANISMS ISOLATED AT 5 DAYS Report Status FINAL 04/15/2017 [facility] CenterComment on above:Performed By: #### AANC ####[address] [place] [address] [phone] Neutrophils Specimen Description .TISSUE RIGHT ANKLE PRE IRRIGATIONSpecial Requests NOT REPORTEDDirect Exam NO NEUTROPHILS SEEN RARE GRAM POSITIVE COCCI IN PAIRS Culture METHICILLIN RESISTANT STAPHYLOCOCCUS AUREUS LIGHT GROWTH For susceptibility, refer to previous culture. STREPTOCOCCI, BETA HEMOLYTIC GROUP C SCANT GROWTH NO ANAEROBIC ORGANISMS ISOLATED AT 5 DAYS Report Status FINAL 04/15/2017NoKindred Hospital DaytonComment on above:Performed By: #### AANC ####[address] [id number] NeutrophilsSpecimen Description .TISSUE RIGHT MEDIAL HEEL PRE IRRIGATIONSpecial Requests NOT REPORTEDDirect Exam NO NEUTROPHILS SEEN NO BACTERIA SEEN Culture STREPTOCOCCI, BETA HEMOLYTIC GROUP C LIGHT GROWTH METHICILLIN RESISTANT STAPHYLOCOCCUS AUREUS SCANT GROWTH For susceptibility, refer to previous culture. DIPHTHEROIDS LIGHT GROWTH NO ANAEROBIC ORGANISMS ISOLATED AT 5 DAYS Report Status FINAL 04/15/2017NoKindred Hospital DaytonComment on above:Performed By: #### AANC ####[address] [id number] Basic Metabolic Profon 04-13-2017(cont.)[facility]itus Medical CenterComment on above:Result Comment: Average GFR for 50-59 years old: 93 mL/min/1.73sq mChronic Kidney Disease: <60 mL/min/1.73sq mKidney failure: <15 mL/min/1.73sq meGFR calculated using average adult body mass. Ad ditional eGFR calculator available at:http://www.kingsky.[employer]/multiple_crcl_2012.htm[address] [address] Performed By: #### CDP, CMPX, CRP, SED, GLYHGB ####[address] [place] [address] Anion gap11 mmol/LNormal9-17[facility] HospitalComment on above:Performed By: #### CDP, CMPX, CRP, SED, GLYHGB ####[facility] [address] [place] [address] Hjsopph7.7 mg/dLNormal8.6-10.4[facility] Comment on above:Performed By: #### CDP, CMPX, CRP, SED, GLYHGB ####Gautamlowell [address] [place] [address] Tnzwsbeq853 mmol/LNormal 98-107[facility] HospitalComment on above:Performed By: #### CDP, CMPX, CRP, SED, GLYHGB ####[facility] Hospitallowell Zhmdkvbsys[address] [place] [address] CO222 mmol/FQrsgzk35-62HfvcyKeenan Private HospitalComment on above:Performed By: #### CDP, CMPX, CRP, SED, GLYHGB ####[facility] Hospitallowell [address] [place] [address] Xjkbrxfekj2.04 mg/dLNormal0.70-1.20[facility] HospitalComment on above:Performed By: #### CDP, CMPX, CRP, SED, GLYHGB ####[facility] [address]sc[address] [place] [address] eGFR (non-black)mL/min/{1.73_m2}Normal>60MerTwin Cities Community HospitalComment on above:Performed By: #### CDP, CMPX, CRP, SED, GLYHGB ####[facility] [address] [place] [address] Glucose mass qggg088 mg/bPMopp41-36Gimge [facility] HospitalComment on above:Performed By: #### CDP, CMPX, CRP, SED, GLYHGB ####[address]autamy [address] [place] [address] Potassium molar conc4.1 mmol/LNormal3.7-5.3[facility] HospitalComment on above:Performed By: #### CDP, CMPX, CRP, SED, GLYHGB ####[address]autamy [address] [place] [address] Aatkst685 mmol/ZTwgfgb460-464RncxeKeenan Private HospitalComment on above:Performed By: #### CDP, CMPX, CRP, SED, GLYHGB ####[address]autamy [address] [place] [address] Urea gsljbyyk35 mg/dLNormal6-20[facility] HospitalComment on above:Performed By: #### CDP, CMPX, CRP, SED, GLYHGB ####Audra [address] [place] [address] BUN/CRE Ratio NOT REPORTEDNormal9-20[facility] HospitalComment on above:Performed By: #### CDP, CMPX, CRP, SED, GLYHGB ####[address]autamy [address] [place] [address] Staging:NOT REPORTEDNormalKeenan Private HospitalComment on above:Performed By: #### CDP, CMPX, CRP, SED, GLYHGB ####[facility] [address] [place] [address] CBC with Diff on 11-65-6209Sup. Basophil<0.45Oxptvm3.00-0.20[facility] Comment on above:Performed By: #### CDP, CMPX, CRP, SED, GLYHGB ####[facility] [address] [place] [address] Abs.Neutrophil (Seg)4.97 k/uLNormal1.50-8.10[facility] HospitalComment [facility] above:Performed By: #### CDP, CMPX, CRP, SED, GLYHGB ####[address] [id number] Basophils/100 WBC Auto (Bld)0 %Normal0-2MSanta Ynez Valley Cottage HospitalComment on above:Performed By: #### CDP, CMPX, CRP, SED, GLYHGB ####[place] [address] Eosinophils0.24 10*3/uLNormal0.00-0.44[facility] HospitalComment on above:Performed By: #### CDP, CMPX, CRP, SED, GLYHGB ####[place] [address] Eosinophils/100 leukocytes3 %Normal1-4 [facility] HospitalComment on above:Performed By: #### CDP, CMPX, CRP, SED, GLYHGB ####[address] [address] Erythrocyte distribution width Auto Ratio (RBC)14.8 %High11.8-14.4 [facility] Private HospitalComment on above:Performed By: #### CDP, CMPX, CRP, SED, GLYHGB ####[address] [address] Erythrocyte morphologyANISOCYTOSIS PRESENTNormalKeenan Private HospitalComment on above:Result Comment: [address] [address] Performed By: #### CDP, CMPX, CRP, SED, GLYHGB ####[address] [address] Erythrocytes (RBC)0.0 per 100 WBCNormal0.0[facility]an [facility] HospitalComment on above: Performed By: #### CDP, CMPX, CRP, SED, GLYHGB ####[address] [address] Erythrocytes (RBC)3.42 10*6/uLLow4.21-5.77[facility] HospitalComment on above:Performed By: #### CDP, CMPX, CRP, SED, GLYHGB ####[address] [address] Granulocytes/100 WBC (Bld)0.19 k/uLNormal0.00-0.30[facility] HospitalComment on above:Performed By: #### CDP, CMPX, CRP, SED, GLYHGB ####[place] [address] Hematocrit (HCT)29.4 % Low40.7-50.3MercContra Costa Regional Medical CenterComment on above:Performed By: #### CDP, CMPX, CRP, SED, GLYHGB ####[address] [address] Hemoglobin mass conc (Bld)8.8 g/dLLow13.0-17.0[facility] HospitalComment on above:Performed By: #### CDP, CMPX, CRP, SED, GLYHGB ####[place] [address] Immature granulocytes #/vol (Bld)2 %Enej4KsugkKeenan Private HospitalComment on above:Performed By: #### CDP, CMPX, CRP, SED, GLYHGB ####[place] [address] Eopibfqughl0.00 10*3/uL Normal1.10-3.70[facility] HospitalComment on above:Performed By: #### CDP, CMPX, CRP, SED, GLYHGB ####[facility] [address]fr[address] [place] [address] Lymphocytes/100 zsojzpvbqs25 %Pwxbst23-32NwpymKeenan Private HospitalComment on above:Performed By: #### CDP, CMPX, CRP, SED, GLYHGB ####[address] [address] JOX16.7 pg Tvnskf43.2-33.5[facility] HospitalComment on above:Performed By: #### CDP, CMPX, CRP, SED, GLYHGB ####[address] [address] MCHC mass conc (RBC)29.9 g/uRGjyukd54.4-34.8[facility] HospitalComment on above:Performed By: #### CDP, CMPX, CRP, SED, GLYHGB ####[address] [address] PYE08.0 fL Dnhzxf74.6-102.9[facility] HospitalComment on above:Performed By: #### CDP, CMPX, CRP, SED, GLYHGB ####[address] [address] Nzwgtemym9.53 10*3/uLNormal0.10-1.20[facility] HospitalComment on above:Performed By: #### CDP, CMPX, CRP, SED, GLYHGB ####[address] [address] Monocytes/100 leukocytes 7 %Normal3-12[facility] HospitalComment on above:Performed By: #### CDP, CMPX, CRP, SED, GLYHGB ####[address] [address] Neutrophil (Seg)63 %Ympdqa03-08Oitbl [facility]berta Medical CenterComment on above:Performed By: #### CDP, CMPX, CRP, SED, GLYHGB ####[facility] [address]fr[address] [place] [address] Platelet mean volume (PMV)9.9 fLNormal8.1-13.5[facility] HospitalComment on above: Performed By: #### CDP, CMPX, CRP, SED, GLYHGB ####[facility] [address] [place] [address] Vpdexxcvh227 10*3/pVDltsjb821-419ZacnkKeenan Private HospitalComment on above:Performed By: #### CDP, CMPX, CRP, SED, GLYHGB ####[facility] Ikertczvpmwa[address] [place] [address] WBC (Leukocytes)8.0 10*3/uLNormal3.5-11.3MercContra Costa Regional Medical CenterComment on above:Performed By: #### CDP, CMPX, CRP, SED, GLYHGB ####[facility] Tiobzsmhavib[address] [place] [address] Auto Diff PerformedNOT REPORTEDNoal [facility]an Private HospitalComment on above:Performed By: #### CDP, CMPX, CRP, SED, GLYHGB ####[facility] X[address] [place] [address] PlateletsNOT REPORTEDNormalKeenan Private HospitalComment on above:Performed By: #### CDP, CMPX, CRP, SED, GLYHGB ####[facility] J[address]wcabzjtcvv[address] [place] [address] WBC MorphologyNOT REPORTEDNoalKeenan Private HospitalComment on above:Performed By: #### CDP, CMPX, CRP, SED, GLYHGB ####[facility] [address]fowyylq[address] [place] [address] Discharge Summaryon [id number] IP Note OR Fiber Design Engineer NormalKeenan Private HospitalPlan of Careon 87-80-1804SWW IP Note OR TranscriptionNormalMercy Kaiser Foundation HospitalHI IP Note OR Fiber Design Engineer NormalKeenan Private HospitalProgress Noteon 88-77-9089PEC IP Note OR TranscriptionNormalMercy Kaiser Foundation HospitalHI IP Note OR Fiber Design Engineer NormalRegency Hospital Cleveland Eastcy Kaiser Foundation HospitalHI IP Note OR TranscriptionNormalMercy Kaiser Foundation HospitalHIM IP Note OR TranscriptionNormalMercy Kaiser Foundation HospitalHI IP Note OR TranscriptionNormalMercy [facility] Foundation Hospital HIM IP Note OR TranscriptionNormalRegency Hospital Cleveland Eastcy Kaiser Foundation HospitalBasic Metabolic Profon 04-12-2017(cont.)NormalKeenan Private HospitalComment on above:Result Comment: Average GFR for 50-59 years old: 93 mL/min/1.73sq mChronic Kidney Disease: <60 mL/min/1.73sq mKidney failure: <15 mL/min/1.73sq meGFR calculated using average adult body mass. Additional eGFR calculator available at:http://www.Flaskon/multiple_crcl_2012.[place] [address] ([phone] By: #### CDP, CMPX, CRP, SED, GLYHGB ####[facility] [employer])Cyikwsdsxyib[address] [place] [address] Anion gap8 mmol/LLow9-17[facility]an Private HospitalComment on above: Performed By: #### CDP, CMPX, CRP, SED, GLYHGB ####[address] [place] [address] Calcium8.8 mg/dLNormal8.6-10.4[facility] HospitalComment on above:Performed By: #### CDP, CMPX, CRP, SED, GLYHGB ####[address] [place] [address] Pactcssz643 mmol/TEuymhk11-551LxrgeKeenan Private HospitalComment on above:Performed By: #### CDP, CMPX, CRP, SED, GLYHGB ####Gautamy G[address]iuikfav[address]6 [place] [address] LC031 mmol/SSvdnyn60-83DwzrkTwin Cities Community HospitalComment on above:Performed By: #### CDP, CMPX, CRP, SED, GLYHGB ####[facility] Miylnhbuirhr[address] [place] [address] Kbourpiqik2.01 mg/dL Normal0.70-1.20[facility] HospitalComment on above:Performed By: #### CDP, CMPX, CRP, SED, GLYHGB ####[facility] [address]ebvzfcbv[address] [place] [address] eGFR (non-black)mL/min/{1.73_m2}Normal>60[facility] Private HospitalComment on above:Performed By: #### CDP, CMPX, CRP, SED, GLYHGB ####[facility] Unvyhigjerew[address] [place] [address] Glucose mass lfar098 mg/lGJeir88-04IadebSanta Ynez Valley Cottage HospitalComment on above:Performed By: #### CDP, CMPX, CRP, SED, GLYHGB ####[facility] [address]pjcbvccizsu[address] [place] [address] Potassium molar conc3.9 mmol/LNormal3.7-5.3MSanta Ynez Valley Cottage HospitalComment on above:Performed By: #### CDP, CMPX, CRP, SED, GLYHGB ####[facility] [address] [place] [address] Xvxrht393 mmol/REylfhl541-402LmyekTwin Cities Community HospitalComment on above: Performed By: #### CDP, CMPX, CRP, SED, GLYHGB ####[facility] [address]uiwl[address]gtja[address] [place] [address] [phone] gtjoarzr76 mg/dLNormal6-20[facility] HospitalComment on above:Performed By: #### CDP, CMPX, CRP, SED, GLYHGB ####Audra [address] [phone]/CRE Ratio NOT REPORTEDNormal9-20[facility] Private HospitalComment on above:Performed By: #### CDP, CMPX, CRP, SED, GLYHGB ####[address] [phone]:NOT REPORTEDNormalKeenan Private HospitalComment on above:Performed By: #### CDP, CMPX, CRP, SED, GLYHGB ####[address] [phone] with Diff on 49-08-6283Sxz. Basophil<0.72Otybpk3.00-0.20[facility] Comment on above:Performed By: #### CDP, CMPX, CRP, SED, GLYHGB ####[address] [address] Abs.Neutrophil (Seg)4.31 k/uLNormal1.50-8.10[facility] Private HospitalComment on above:Performed By: #### CDP, CMPX, CRP, SED, GLYHGB ####Audra [address] [phone]/100 WBC Auto (Bld)0 %Normal0-2MercContra Costa Regional Medical CenterComment on above:Performed By: #### CDP, CMPX, CRP, SED, GLYHGB ####[address] [address] Eosinophils0.21 10*3/uLNormal0.00-0.44[facility] Private HospitalComment on above:Performed By: #### CDP, CMPX, CRP, SED, GLYHGB ####[address] [address] Eosinophils/100 leukocytes3 %Normal1-4 [facility] HospitalComment on above:Performed By: #### CDP, CMPX, CRP, SED, GLYHGB ####[address] [address] Erythrocyte distribution width Auto Ratio (RBC)14.7 %High11.8-14.4 [facility] HospitalComment on above:Performed By: #### CDP, CMPX, CRP, SED, GLYHGB ####[address] [address] Erythrocyte morphologyANISOCYTOSIS PRESENTNormalMerTwin Cities Community HospitalComment on above:Result Comment: [address] [address] Performed By: #### CDP, CMPX, CRP, SED, GLYHGB ####[place] [address] Erythrocytes (RBC)3.45 10*6/uLLow4.21-5.77[facility] HospitalComment on above: Performed By: #### CDP, CMPX, CRP, SED, GLYHGB ####[address] [address] Granulocytes/100 WBC (Bld)0.22 k/uLNormal 0.00-0.30[facility] HospitalComment on above:Performed By: #### CDP, CMPX, CRP, SED, GLYHGB ####[place] [address] Hematocrit (HCT)28.9 %Low40.7-50.3MSanta Ynez Valley Cottage HospitalComment on above:Performed By: #### CDP, CMPX, CRP, SED, GLYHGB ####[facility] Hasegefusbvw[address] [place] [address] Hemoglobin mass conc (Bld)8.9 g/dLLow13.0-17.0[facility] HospitalComment on above: Performed By: #### CDP, CMPX, CRP, SED, GLYHGB ####[address] [address] Immature granulocytes #/vol (Bld)3 %Kpqu5KshgiKeenan Private HospitalComment on above:Performed By: #### CDP, CMPX, CRP, SED, GLYHGB ####[address] [address] Lymphocytes1.83 10*3/uLNormal1.10-3.70[facility] HospitalComment on above:Performed By: #### CDP, CMPX, CRP, SED, GLYHGB ####[address] [address] Lymphocytes/100 qidhsysxdv45 %Ytulxz33-74 [facility] HospitalComment on above:Performed By: #### CDP, CMPX, CRP, SED, GLYHGB ####[address] [address] MCH25.8 xfVahstr75.2-33.5[facility] HospitalComment on above:Performed By: #### CDP, CMPX, CRP, SED, GLYHGB ####[address] [address] MCHC mass conc (RBC)30.8 g/dLNormal 28.4-34.8[facility] Private HospitalComment on above:Performed By: #### CDP, CMPX, CRP, SED, GLYHGB ####[address] [address] OYG38.8 qTGetsfq08.6-102.9[facility] Comment on above:Performed By: #### CDP, CMPX, CRP, SED, GLYHGB ####[address] [address] Obatlscpg5.58 10*3/uL Normal0.10-1.20[facility] HospitalComment on above:Performed By: #### CDP, CMPX, CRP, SED, GLYHGB ####[address] [address] Monocytes/100 leukocytes8 %Normal3-12[facility] HospitalComment on above:Performed By: #### CDP, CMPX, CRP, SED, GLYHGB ####[address] [address] Neutrophil (Seg)60 % Ajbmlb57-86RhwfyKeenan Private HospitalComment on above:Performed By: #### CDP, CMPX, CRP, SED, GLYHGB ####[address] [phone] mean volume (PMV)9.3 fLNormal8.1-13.5[facility] Private HospitalComment on above:Performed By: #### CDP, CMPX, CRP, SED, GLYHGB ####[place] [address] Tvwvpdyqa838 10*3/aBUpjuyv097-518DmjnxKeenan Private HospitalComment on above:Performed By: #### CDP, CMPX, CRP, SED, GLYHGB ####[place] [address] WBC (Leukocytes)7.2 10*3/uLNormal3.5-11.3 [facility] HospitalComment on above:Performed By: #### CDP, CMPX, CRP, SED, GLYHGB ####Audra [address]mtwo[address]3 [place] [address] Auto Diff PerformedNOT REPORTEDFisher-Titus Medical CenterComment on above:Performed By: #### CDP, CMPX, CRP, SED, GLYHGB ####Gautamy S[address]osvbt5725 [place] [address] PlateletsNOT REPORTED [facility]-Titus Medical CenterComment on above:Performed By: #### CDP, CMPX, CRP, SED, GLYHGB ####Gautamy Z[address]wpswujq0960 [place] [address] WBC MorphologyNOT REPORTEDFisher-Titus Medical Center Comment on above:Performed By: #### CDP, CMPX, CRP, SED, GLYHGB ####Audra [address]wh[address]pi[address]14 [place] [address] Cult,Aerobe/Anaerobeon [id number] Description .TISSUE RIGHT LATERAL ANKLE POST IRRIGATIONSpecial [...] <=1 SUSCEPTIBLETigecycline NOT REPORTEDTrimethoprim/Sulfa <=10 SUSCEPTIBLEVancomycin 1 SUSCEPTIBLENoKindred Hospital DaytonComment on above:Performed By: #### AANC ####Gautamy [address] [place] [address] Plan of Careon 56-20-9398EGA IP Note OR TranscriptionNormalMercy Kaiser Foundation HospitalHIM IP Note OR TranscriptionNormalMer[facility] Hospital HIM IP Note OR TranscriptionNormalMercy Kaiser Foundation HospitalHIM IP Note OR TranscriptionNormalMercy Kaiser Foundation HospitalHI IP Note OR Fiber Design Engineer NormalKeenan Private HospitalProgress Noteon 27-56-2028ZCU IP Note OR TranscriptionNormalMercy Kaiser Foundation HospitalHIM IP Note OR Fiber Design Engineer NormalReg[facility] Hospital [facility] Eastcy [facility] Foundation HospitalHI IP Note OR TranscriptionNormalMercy Kaiser Foundation HospitalHI IP Note OR TranscriptionNormalMercy Kaiser Foundation HospitalHI IP Note OR TranscriptionNormalMer[facility] HIM IP Note OR TranscriptionNormalRegency Hospital [facility] Eastcy Kaiser Foundation HospitalBasic Metabolic Profon 04-11-2017(cont.)NormalKeenan Private HospitalComment on above:Result Comment: Average GFR for 50-59 years old: 93 mL/min/1.73sq mChronic Kidney Disease: <60 mL/min/1.73sq mKidney failure: <15 mL/min/1.73sq meGFR calculated using average adult body mass. Additional eGFR calculator available at:http://www.Flaskon/multiple_crcl_2012.[place] [address] ([phone] By: #### CDP, CMPX, CRP, SED, GLYHGB ####[facility] [address]kegx[address] [place] [address] Anion gap14 mmol/LNormal9-17[facility] Private HospitalComment on above: Performed By: #### CDP, CMPX, CRP, SED, GLYHGB ####Audra [address] [place] [address] Calcium8.2 mg/dLLow8.6-10.4[facility] HospitalComment on above:Performed By: #### CDP, CMPX, CRP, SED, GLYHGB ####[facility] Rsoukhrbhdyr[address]95 [place] [address] Oimxoffe345 mmol/AEcigte63-567BsfpsKeenan Private HospitalComment on above:Performed By: #### CDP, CMPX, CRP, SED, GLYHGB ####[facility] Hemijckldslo6681 [place] [address] EK739 mmol/PIhiqle43-47AfjypKeenan Private HospitalComment on above:Performed By: #### CDP, CMPX, CRP, SED, GLYHGB ####[facility] Ipspeariuqdb[address] [place] [address] Dynwzvojgp5.16 mg/dL Normal0.70-1.20[facility] HospitalComment on above:Performed By: #### CDP, CMPX, CRP, SED, GLYHGB ####[facility] Cfxdzdhmfyzq[address] [place] [address] eGFR (non-black)mL/min/{1.73_m2}Normal>60[facility] Private HospitalComment on above:Performed By: #### CDP, CMPX, CRP, SED, GLYHGB ####[facility] I[address]acaidpbvh3232 [place] [address] Glucose mass luzf418 mg/yAPwmu35-63QoyljSanta Ynez Valley Cottage HospitalComment on above:Performed By: #### CDP, CMPX, CRP, SED, GLYHGB ####[facility] Cskvrrvahxjc3597 [place] [address] Potassium molar conc4.0 mmol/LNormal3.7-5.3MSanta Ynez Valley Cottage HospitalComment on above:Performed By: #### CDP, CMPX, CRP, SED, GLYHGB ####[facility] [address]fpizafkipk1866 [place] [address] Twgheu444 mmol/DDpyjkg384-650EaertKeenan Private HospitalComment on above: Performed By: #### CDP, CMPX, CRP, SED, GLYHGB ####[address] [address] Urea vkwrnnys42 mg/dLNormal6-20[facility] HospitalComment on above:Performed By: #### CDP, CMPX, CRP, SED, GLYHGB ####[place] [address] BUN/CRE Ratio NOT REPORTEDNormal9-20[facility] HospitalComment on above:Performed By: #### CDP, CMPX, CRP, SED, GLYHGB ####[place] [address] Staging:NOT REPORTEDNormalKeenan Private HospitalComment on above:Performed By: #### CDP, CMPX, CRP, SED, GLYHGB ####[place] [address] L-Rqinmcga Proteinon 04-11-2017C reactive protein (CRP)55.5 mg/LHigh0.0-5.0[facility] HospitalComment on above:Result Comment: [place] [address] Performed By: #### CDP, CMPX, CRP, SED, GLYHGB ####[place] [address] CBC with Diffon 36-25-4113Ftb. Basophil<0.23Ubedmz1.00-0.20[facility] HospitalComment on above:Performed By: #### CDP, CMPX, CRP, SED, GLYHGB ####[place] [address] Abs.Neutrophil (Seg)5.04 k/uLNormal1.50-8.10[facility] HospitalComment on above:Performed By: #### CDP, CMPX, CRP, SED, GLYHGB ####[address] [address] Basophils/100 WBC Auto (Bld)0 %Normal0-2MSanta Ynez Valley Cottage HospitalComment on above:Performed By: #### CDP, CMPX, CRP, SED, GLYHGB ####[address] [address] Eosinophils0.24 10*3/uLNormal0.00-0.44[facility] HospitalComment on above:Performed By: #### CDP, CMPX, CRP, SED, GLYHGB ####[address] [address] Eosinophils/100 leukocytes3 %Normal1-4 [facility] HospitalComment on above:Performed By: #### CDP, CMPX, CRP, SED, GLYHGB ####[address] [address] Erythrocyte distribution width Auto Ratio (RBC)14.8 %High11.8-14.4 [facility] HospitalComment on above:Performed By: #### CDP, CMPX, CRP, SED, GLYHGB ####[address] [address] Erythrocyte morphologyANISOCYTOSIS PRESENTNormalKeenan Private HospitalComment on above:Result Comment: [address] [address] Performed By: #### CDP, CMPX, CRP, SED, GLYHGB ####[address] [address] Erythrocytes (RBC)3.36 10*6/uLLow4.21-5.77[facility] HospitalComment on above: Performed By: #### CDP, CMPX, CRP, SED, GLYHGB ####[address] [address] Granulocytes/100 WBC (Bld)0.09 k/uLNormal 0.00-0.30[facility] HospitalComment on above:Performed By: #### CDP, CMPX, CRP, SED, GLYHGB ####[address] [address] Hematocrit (HCT)28.8 %Low40.7-50.3MSanta Ynez Valley Cottage HospitalComment on above:Performed By: #### CDP, CMPX, CRP, SED, GLYHGB ####[address] [address] Hemoglobin mass conc (Bld)8.8 g/dLLow13.0-17.0[facility] HospitalComment on above: Performed By: #### CDP, CMPX, CRP, SED, GLYHGB ####[place] [address] Immature granulocytes #/vol (Bld)1 %Avdd8LylbcKeenan Private HospitalComment on above:Performed By: #### CDP, CMPX, CRP, SED, GLYHGB ####[address] [address] Lymphocytes1.73 10*3/uLNormal1.10-3.70[facility] HospitalComment on above:Performed By: #### CDP, CMPX, CRP, SED, GLYHGB ####[address] [address] Lymphocytes/100 cavlgdovpc95 %Yzz06-17 [facility] HospitalComment on above:Performed By: #### CDP, CMPX, CRP, SED, GLYHGB ####[address] [address] MCH26.2 rbLdufbq57.2-33.5[facility] HospitalComment on above:Performed By: #### CDP, CMPX, CRP, SED, GLYHGB ####Audra M[address]xdqdkdpv[address] [place] [address] MCHC mass conc (RBC)30.6 g/dLNormal 28.4-34.8[facility] HospitalComment on above:Performed By: #### CDP, CMPX, CRP, SED, GLYHGB ####Audra Bjhnvysihbly[address] [place] [address] VSH67.7 oUVmcffw32.6-102.9[facility] Comment on above:Performed By: #### CDP, CMPX, CRP, SED, GLYHGB ####[place] [address] Igosvnxsn1.56 10*3/uL Normal0.10-1.20[facility] HospitalComment on above:Performed By: #### CDP, CMPX, CRP, SED, GLYHGB ####[address] [address] Monocytes/100 leukocytes7 %Normal3-12[facility] HospitalComment on above:Performed By: #### CDP, CMPX, CRP, SED, GLYHGB ####Audra [address] [address] Neutrophil (Seg)66 %High 36-65Ke[facility] HospitalComment on above:Performed By: #### CDP, CMPX, CRP, SED, GLYHGB ####[facility]allow[facility] [address] [address] Platelet mean volume (PMV)9.9 fLNormal8.1-13.5[facility] HospitalComment on above:Performed By: #### CDP, CMPX, CRP, SED, GLYHGB ####[address] [phone] 10*3/fPFfwjzp693-886ZbrueTwin Cities Community HospitalComment on above:Performed By: #### CDP, CMPX, CRP, SED, GLYHGB ####Audra [address] [place] [address] WBC (Leukocytes)7.7 10*3/uLNormal3.5-11.3[facility] Foundation HospitalComment on above:Performed By: #### CDP, CMPX, CRP, SED, GLYHGB ####Audra Apherbkobwzs[address] [place] [address] Auto Diff PerformedNOT [facility] Sunnyside Medical CenterComment on above:Performed By: #### CDP, CMPX, CRP, SED, GLYHGB ####[facility] Agcfzsvptfsi[address] [place] [address] [phone] [facility]nyside Medical CenterComment on above:Performed By: #### CDP, CMPX, CRP, SED, GLYHGB ####Audra Pufgpmsqcvhd[address] [place] [address] [phone] MorphologyNOT [facility]nyside Medical CenterComment on above: Performed By: #### CDP, CMPX, CRP, SED, GLYHGB ####[facility] [address]josmxwdemaz[address] [place] [address] [phone] A1Con 77-98-9294Wtsjavf mass vbau194 mg/dLFisher-Titus Medical CenterComment on above:Result Comment: The ADA and AACC recommend providing the estimated average glucose result to permit better patient understanding of their HBA1c result.[address] [address] [phone] By: #### CDP, CMPX, CRP, SED, GLYHGB ####[address] [address] Hemoglobin A1c/Hemoglobin.total mass fraction (Bld)12.6 %High4.0-6.0[facility] HospitalComment on above:Performed By: #### CDP, CMPX, CRP, SED, GLYHGB ####[address] [place], [place] [address] Plan of Careon [id number] IP Note OR TranscriptionNormalMercy Kaiser Foundation HospitalHI IP Note OR TranscriptionNormalMercy Kaiser Foundation HospitalHI IP Note OR TranscriptionNormalMerTwin Cities Community HospitalHI IP Note OR TranscriptionNormalKeenan Private HospitalProgress Noteon [id number] IP Note OR TranscriptionNormalMerTwin Cities Community HospitalHI IP Note OR TranscriptionNormalMerTwin Cities Community HospitalHI IP Note OR Fiber Design Engineer NormalMercy Kaiser Foundation HospitalHI IP Note OR TranscriptionNormalKeenan Private HospitalConsulton [id number] IP Note OR TranscriptionNormal [facility] Private HospitalCult,Urine,Cathon 05-05-1441Zuvx,Urine,Cath Specimen Description .CATHETERIZED URINE Special Requests NOT REPORTED Culture PRESUMPTIVE ID: LEO ALBICANS >[id number] CFU/ML Report Status FINAL 04/10/2017Fisher-Titus Medical CenterComment on above:Performed By: #### CDP, CMPX, CRP, SED, GLYHGB ####[address] [place] [address] Influenza A + B, PCRon 04-10-2017 Influenza A + B, PCRSpecimen Description .NASOPHARYNGEAL SWABSpecial Requests NOT REPORTEDDirect Exam NEGATIVE: Influenza A and B RNA not detected by nucleic acid amplification. The results obtained should be interpreted in conjunction with clinical findings and other laboratory markers. The performance characterisitics of this molecular test were validated by the molecular microbiology department of [facility] Weight Wins. Report Status FINAL 04/10/2017Fisher-Titus Medical CenterComment on above:Performed By: #### CDP, CMPX, CRP, SED, GLYHGB ####[employer] [address]vf[address] [place] [address] OPERATIVE REPORTon [id number] REPORTKETTERING HEALTH W[facility] [address] [place] [address] OPERATIVE REPORTPATIENT NAME: GANGA STINSON : 1960MED REC NO: [id number] ROOM: [address] [place], [place] [address]OUNT NO: [id number] ADMIT DATE: 04/09/2017PROVIDER: William Foster- JudgeDATE OF [...] for recovery. The patient has a primary commercial real estate paralegal, Dr. Sanders, whom I have set outa telephone communication with. The department of Infectious Disease,Internal Medicine, and specialty medicine services will provide care duringthe inpatient admission. Irwin return to the care of Dr. [facility] [place], upon discharge.INDICATIONS FOR OPERATION: This is a [...] He would follow up with his usual commercial real estate paralegal on anoutpatient basis. The departments of Internal Medicine and InfectiousDisease will guide our care in the interim. Cultures should be availablewith sensitivities in approximately 72 hours and consider dischargeplanning then.WILLIAM FOSTER-JUDGED: 04/10/2017 15:31:53 MS/V_SS ROR_IJob#: [id number] Doc#: [id number]: Yakov Olvier [place] Department of Infectious Disease Internal MedicineNormSt. Rita's HospitalPlan of Careon [id number] IP Note OR TranscriptionNormSt. Rita's HospitalHIM IP Note OR TranscriptionFisher-Titus Medical CenterProgress Noteon [id number] IP Note OR TranscriptionFisher-Titus Medical CenterHI IP Note OR TranscriptionFisher-Titus Medical CenterXR ANKLE RIGHT STANDARDon 83-81-8859DZ ANKLE RIGHT STANDARDEXAMINATION:3 VIEWS OF THE RIGHT [...] osteomyelitis.Interpreted by:SAMMI Bakerigned by:Roberto Carlos Cavazos MD04/09/17inal resultNormalKeenan Private HospitalC-Reactive Proteinon 04-09-2017C reactive protein (CRP)114.3 mg/LHigh0.0-5.0MerTwin Cities Community HospitalComment on above:Result Comment: [address] [address] [place], [place] [id number] ([phone] By: #### CDP, CMPX, CRP, SED, GLYHGB ####[employer] [address] [place] [address] CBC with Diff on 41-81-6495Alj. Basophil<0.26Svkqni9.00-0.20[facility] Comment on above:Performed By: #### CDP, CMPX, CRP, SED, GLYHGB ####[address] [address] Abs.Neutrophil (Seg)5.95 k/uLNormal1.50-8.10Keenan Private HospitalComment on above:Performed By: #### CDP, CMPX, CRP, SED, GLYHGB ####[address] [address] Basophils/100 WBC Auto (Bld)0 %Normal0-2MercContra Costa Regional Medical CenterComment on above:Performed By: #### CDP, CMPX, CRP, SED, GLYHGB ####[place] [address] Eosinophils0.11 10*3/uLNormal0.00-0.44Keenan Private HospitalComment on above:Performed By: #### CDP, CMPX, CRP, SED, GLYHGB ####[address] [address] Eosinophils/100 leukocytes1 %Normal1-4 [facility]enan Private HospitalComment on above:Performed By: #### CDP, CMPX, CRP, SED, GLYHGB ####[address] [address] Erythrocyte distribution width Auto Ratio (RBC)15.0 %High11.8-14.4 [facility]an Private HospitalComment on above:Performed By: #### CDP, CMPX, CRP, SED, GLYHGB ####[address] [address] Erythrocyte morphologyANISOCYTOSIS PRESENTNormalKeenan Private HospitalComment on above:Result Comment: [employer] [address] [place] [address] [phone] By: #### CDP, CMPX, CRP, SED, GLYHGB ####[address] [address] Erythrocytes (RBC)3.50 10*6/uLLow4.21-5.77Keenan Private HospitalComment on above: Performed By: #### CDP, CMPX, CRP, SED, GLYHGB ####[facility] [address] [place] [address] Granulocytes/100 WBC (Bld)0.09 k/uLNormal 0.00-0.30Keenan Private HospitalComment on above:Performed By: #### CDP, CMPX, CRP, SED, GLYHGB ####[place] [address] Hematocrit (HCT)29.9 %Low40.7-50.3MercContra Costa Regional Medical CenterComment on above:Performed By: #### CDP, CMPX, CRP, SED, GLYHGB ####[address] [address] Hemoglobin mass conc (Bld)9.0 g/dLLow13.0-17.0Keenan Private HospitalComment on above: Performed By: #### CDP, CMPX, CRP, SED, GLYHGB ####[address] [address] Immature granulocytes #/vol (Bld)1 %Gwog1QbgfyKeenan Private HospitalComment on above:Performed By: #### CDP, CMPX, CRP, SED, GLYHGB ####[address] [address] Lymphocytes1.60 10*3/uLNormal1.10-3.70Keenan Private HospitalComment on above:Performed By: #### CDP, CMPX, CRP, SED, GLYHGB ####Gautam [address] [place] [address] Lymphocytes/100 gemwplwfdr19 %Ttb52-80 [facility]an Private HospitalComment on above:Performed By: #### CDP, CMPX, CRP, SED, GLYHGB ####[address] [address] MCH25.7 uaAnkpkj47.2-33.5Keenan Private HospitalComment on above:Performed By: #### CDP, CMPX, CRP, SED, GLYHGB ####[facility] [address] [address] MCHC mass conc (RBC)30.1 g/dLNormal 28.4-34.8[facility]an Private HospitalComment on above:Performed By: #### CDP, CMPX, CRP, SED, GLYHGB ####[address] [address] XBB83.4 kHDifywb17.6-102.9[facility] Comment on above:Performed By: #### CDP, CMPX, CRP, SED, GLYHGB ####[address] [address] Gcrqmgmtm1.53 10*3/uL Normal0.10-1.20[facility]an Private HospitalComment on above:Performed By: #### CDP, CMPX, CRP, SED, GLYHGB ####[address] [address] Monocytes/100 leukocytes6 %Normal3-12Keenan Private HospitalComment on above:Performed By: #### CDP, CMPX, CRP, SED, GLYHGB ####[address] [address] Neutrophil (Seg)73 %High 36-65Keenan Private HospitalComment on above:Performed By: #### CDP, CMPX, CRP, SED, GLYHGB ####Audra [address] [place] [address] Platelet mean volume (PMV)9.6 fLNormal8.1-13.5MerTwin Cities Community HospitalComment on above:Performed By: #### CDP, CMPX, CRP, SED, GLYHGB ####Gautamy [address]selnic[address] [place] [phone] 10*3/pHLqvppu554-116DxycaTwin Cities Community HospitalComment on above:Performed By: #### CDP, CMPX, CRP, SED, GLYHGB ####Audra [address]temzj[address] [place] [address] WBC (Leukocytes)8.3 10*3/uLNormal3.5-11.3[facility] HospitalComment on above:Performed By: #### CDP, CMPX, CRP, SED, GLYHGB ####[facility]st[facility] [employer])Bcwvswrxbyht[address] [place] [address] Auto Diff PerformedNOT REPORTEDNormalKeenan Private HospitalComment on above:Performed By: #### CDP, CMPX, CRP, SED, GLYHGB ####Gautamy [address]axpjdedn[address] [place] [address] PlateletsNOT REPORTEDNormalKeenan Private HospitalComment on above:Performed By: #### CDP, CMPX, CRP, SED, GLYHGB ####[facility] [address] [place] [address] WBC MorphologyNOT REPORTEDNormalKeenan Private HospitalComment on above: Performed By: #### CDP, CMPX, CRP, SED, GLYHGB ####[facility] [address]qm[address] [place] [address] Comp Metabolic Pr/rfx MGon 04-09-2017(cont.) NormalKeenan Private HospitalComment on above:Result Comment: Average GFR for 50-59 years old: 93 mL/min/1.73sq mChronic Kidney Disease: <60 mL /min/1.73sq mKidney failure: <15 mL/min/1.73sq meGFR calculated using average adult body mass. Additional eGFR calculator available at:http://www.Flaskon/multiple_crcl_2012.htm[address] [address] [phone] By: #### CDP, CMPX, CRP, SED, GLYHGB ####[facility] Fnxrwhnoqbir[address] [place] [address] Alanine aminotransferase (ALT)9 U/LNormal5-41Keenan Private HospitalComment on above:Performed By: #### CDP, CMPX, CRP, SED, GLYHGB ####[facility] Vbujdrfsdicj[address] [place] [phone] g/dLLow3.5-5.2MSanta Ynez Valley Cottage HospitalComment on above:Performed By: #### CDP, CMPX, CRP, SED, GLYHGB ####[facility] Cszilvaofpau[address] [place] [address] Albumin/Globulin Ratio0.7 {ratio}Low1.0-2.5[facility] Comment on above:Performed By: #### CDP, CMPX, CRP, SED, GLYHGB ####[facility] Awavtxiitbhk[address] [place] [address] Alkaline Phos57 U/L Caarzq96-688CbbbiKeenan Private HospitalComment on above:Performed By: #### CDP, CMPX, CRP, SED, GLYHGB ####[facility] HospitalDstillery ([facility] [employer])Owisociwyyva[address] [place] [address] Anion gap13 mmol/LNormal9-17[facility] Comment on above:Performed By: #### CDP, CMPX, CRP, SED, GLYHGB ####Gautamy [address] [place] [address] Aspartate aminotransferase (AST)9 U/LNormal<40Keenan Private HospitalComment on above:Performed By: #### CDP, CMPX, CRP, SED, GLYHGB ####[facility] [address]garqub[address] [place] [address] Bilirubin Ql (U)0.26 mg/dLLow0.3-1.2MSanta Ynez Valley Cottage HospitalComment on above:Performed By: #### CDP, CMPX, CRP, SED, GLYHGB ####Audra [address] [place] [address] Calcium8.4 mg/dLLow8.6-10.4[facility]an Private HospitalComment on above: Performed By: #### CDP, CMPX, CRP, SED, GLYHGB ####[facility] [address]wm[address] [place] [address] Ztzjmqnb33 mmol/YRfkxef37-925ZnypoKeenan Private HospitalComment on above:Performed By: #### CDP, CMPX, CRP, SED, GLYHGB ####[facility] [address] [place] [address] XZ773 mmol/L Vyyvwd39-96PsjsqKeenan Private HospitalComment on above:Performed By: #### CDP, CMPX, CRP, SED, GLYHGB ####[facility] [address] [place] [address] Jmsksptbyb0.13 mg/dLNormal0.70-1.20[facility] Private HospitalComment on above:Performed By: #### CDP, CMPX, CRP, SED, GLYHGB ####[facility] [address] [place] [address] eGFR (non-black) mL/min/{1.73_m2}Normal>60Keenan Private HospitalComment on above: Performed By: #### CDP, CMPX, CRP, SED, GLYHGB ####[facility] [address]le[address]hdhvcwb[address]24 [place] [address] Glucose mass rlzs120 mg/hGCoay95-45PadqpSanta Ynez Valley Cottage HospitalComment on above:Performed By: #### CDP, CMPX, CRP, SED, GLYHGB ####[facility] [address]bx[address]ywl[address] [place] [address] Potassium molar conc4.3 mmol/LNormal3.7-5.3MSanta Ynez Valley Cottage Hospital Comment on above:Performed By: #### CDP, CMPX, CRP, SED, GLYHGB ####[facility] Rhqrqpdyjy[address] [place] [address] Qyxyzie1.0 g/dLNormal 6.4-8.3MSanta Ynez Valley Cottage HospitalComment on above:Performed By: #### CDP, CMPX, CRP, SED, GLYHGB ####[facility] Hm[address] [place] [address] Sodium133 mmol/BKfi848-988WlotlKeenan Private HospitalComment on above:Performed By: #### CDP, CMPX, CRP, SED, GLYHGB ####[facility] Tncgrhfhpxtg[address] [place], [place] [address] Urea myeswmql86 mg/dL High6-20[facility]an Private HospitalComment on above:Performed By: #### CDP, CMPX, CRP, SED, GLYHGB ####[employer] [address] [place] [address] BUN/CRE RatioNOT REPORTEDNormal9-20[facility] Comment on above:Performed By: #### CDP, CMPX, CRP, SED, GLYHGB ####[employer] [address] [place] [address] Staging:NOT REPORTED NormalKeenan Private HospitalComment on above:Performed By: #### CDP, CMPX, CRP, SED, GLYHGB ####Audra [address] [place] [address] Consulton [id number] IP Note OR TranscriptionNormalKeenan Private HospitalHI IP Note OR TranscriptionNormSt. Rita's HospitalHI IP Note OR TranscriptionNoKindred Hospital Dayton Flu A/B Ag Detectionon [id number] A/B Ag DetectionSpecimen Description .NASOPHARYNGEAL SWABSpecial Requests NOT REPORTEDDirect Exam PRESUMPTIVE NEGATI VE for Influenza A + B antigens. PCR testing to confirm this result is available upon request. Specimen will be saved in the laboratory for 7 days. Please call [phone] if PCR testing is indicated. Report Status FINAL 04/09/2017[facility] Community HospitalComment on above:Performed By: #### CDP, CMPX, CRP, SED, GLYHGB ####Audra [address] [place] [address] History and Physicalon [id number] IP Note OR TranscriptionPromedica Fostoria Community HospitalMRI FOOT RIGHT W WO CONTRASTon [id number] FOOT RIGHT W WO CONTRASTEXAMINATION:MRI OF THE [...] suspected despite a lack of definitive precontrast B8khmoomei changes.Large ulcer overlying the lateral malleolus with underlying osteomyelitis.Interpreted by:SAMMI Tellezigned by:Jesusita Mock MD04/09/17inal resultNormalMerTwin Cities Community HospitalOp Noteon [id number] IP Note OR TranscriptionNormal [facility] HospitalPlan of Careon 54-90-0810HHQ IP Note OR TranscriptionNormalMerTwin Cities Community HospitalHI IP Note OR Fiber Design Engineer NormalKeenan Private HospitalProgress Noteon 41-68-2374FJK IP Note OR TranscriptionNormalMerTwin Cities Community HospitalHI IP Note OR Fiber Design Engineer NormalKeenan Private HospitalHI IP Note OR TranscriptionNormalKeenan Private HospitalRSV Ag Detectionon [id number] Ag DetectionSpecimen Description .NASOPHARYNGEAL SWABSpecial Requests NOT REPORTEDDirect Exam Presumptive negative for the presence of RSV antigen. PCR testing to confirm this result is available upon request. Specimen will be saved in the laboratory for 7 days. Please call [phone] if PCR testing is indicated. Report Status FINAL 04/09/2017Fisher-Titus Medical CenterComment on above:Performed By: #### CDP, CMPX, CRP, SED, GLYHGB ####[place] [address] Sedimentation Rateon 77-21-7099Vehbvnzfqlnpq Rate80 mmHigh0-10[facility] HospitalComment on above:Result Comment: [address] [address] [place], [place] [id number] ([phone] Performed By: #### CDP, CMPX, CRP, SED, GLYHGB ####[employer] [address]nlbk[address] [place] [address] XR FOOT RIGHT STANDARDon [id number] FOOT RIGHT STANDARDEXAMINATION:3 VIEWS OF THE RIGHT [...] more definitivecharacterization.Interpreted by:SAMMI Tellezigned by:Jesusita Mock MD04/09/17inal resultNormalMerTwin Cities Community Hospital Vital Signs Date TimeVital SignValuePerforming FpprkrlmeJuqiivpt71-11-2987 10:45-0500Body siekil326.34 cmFidel Abbott MD Work Phone: [facility]11-06-2025 10:45-0500 Body mass index (BMI) [Ratio]31.4 kg/m2Fidel Abbott MD Work Phone: [facility]11-06-2025 10:45-0500 Body pndjncgpgyd53.1 [degF]Fidel Abbott MD Work Phone: [facility]11-06-2025 10:45-0500 Body bxrsqe102.05 kgFidel Abbott MD Work Phone: 1(157)799-[address] [place], [place] 2431611-06-2025 10:45-0500 Diastolic blood mm[Hg]Fidel Abbott MD Work Phone: 1(711)[address]11-06-2025 10:45-0500 Heart rate88 /minFidel Abbott MD Work Phone: 1(450)[address]99 [address]11-06-2025 10:45-0500 Respiratory rate20 /minFidel Abbott MD Work Phone: 1(827)[address]11-06-2025 10:45-0500 SaO2% (BldA) [Mass fraction]98 %Fidel Abbott MD Work Phone: 1(178)[address]11-06-2025 10:45-0500 Systolic blood uwtxmuad802 mm[Hg]Fidel Abbott MD Work Phone: 1(928)[address]10-30-2025 13:19-0400 Body axheco224.34 cmFidel Abbott MD Work Phone: 1(331)[address]99 [address]10-30-2025 13:19-0400 Body mass index (BMI) [Ratio]31.4 kg/m2Fidel Abbott MD Work Phone: 1(564)079-[address] [place], [place] 2431610-30-2025 13:19-0400 Body tqxmxqzdiet19.5 [degF]Fidel Abbott MD Work Phone: 1(501)710-[address] [place], [place] 2431610-30-2025 13:19-0400 Body avgdyr876.05 kgFidel Abbott MD Work Phone: 1(947)64599 [address]10-30-2025 13:19-0400 Diastolic blood fugqbddd66 mm[Hg]Fidel Abbott MD Work Phone: 1(576)839-[address] [place], [place] 2431610-30-2025 13:19-0400 Heart rate91 /minFidel Abbott MD Work Phone: 1(508)65499 [address]10-30-2025 13:19-0400 Systolic blood qdhnqikc508 mm[Hg]Fidel Abbott MD Work Phone: 1(918)7[address]99 [address]10-28-2025 11:59-0400 Body zbaaxv480.34 cmFidel Abbott MD Work Phone: 1(248)[address] [place], [place] 7066910-28-2025 11:59-0400 Body mass index (BMI) [Ratio]31.4 kg/m2Fidel Abbott MD Work Phone: 1(194)[address] [place], [place] 5503110-28-2025 11:59-0400 Body .05 kgFidel Abbott MD Work Phone: 1(345)[address] [place], [place] 7066910-28-2025 11:13-0400 Body dzunrmlydua63.2 [degF]Fidel Abbott MD Work Phone: 1(022)[address] [place], [place] 5503110-28-2025 11:13-0400 Diastolic blood xfpgjaxw15 mm[Hg]Fidel Abbott MD Work Phone: 1(881)[address] [place], [place] 7066910-28-2025 11:13-0400 Heart rate82 /Ceci Abbott MD Work Phone: 1(764)[address] [place], [place] 5503110-28-2025 11:13-0400 Systolic blood xdxwskoz356 mm[Hg]Fidel Abbott MD Work Phone: 1(773)[address] [place], [place] 7066907-15-2025 10:26-0400 Respiratory rate18 /Ceci Abbott MD Work Phone: 1(095)[address]2025 13:45-0400 Diastolic blood iprasmak22 mm[Hg]Fidel Abbott MD Work Phone: 1(088)[address]2025 13:45-0400 Heart rate55 /Ceci Abbott MD Work Phone: 1(135)[address]2025 13:45-0400 Respiratory rate16 /minFidel Abbott MD Work Phone: 1(740)[address]2025 13:45-0400 SaO2% (BldA) [Mass fraction]97 %Fidel Abbott MD Work Phone: 1(593)[address]2025 13:45-0400 Systolic blood dooebibf485 mm[Hg]Fidel Abbott MD Work Phone: 1(067)[address] [place], [place] 5503107-07-2025 13:00-0400 Inhaled oxygen flow rate6 L/minFidel Abbott MD Work Phone: 1(001)[address] [place], [place] 5503107-07-2025 10:58-0400 Body qmirmf523.34 cmFidel Abbott MD Work Phone: 1(763)[address] [place], [place] 5503107-07-2025 10:58-0400 Body htzqhanldrg89.4 [degF]Fidel Abbott MD Work Phone: 1(437)[address] [place], [place] 5503107-07-2025 10:58-0400 Body .05 kgFidel Abbott MD Work Phone: 1(423)[address] [place], [place] 5503106-04-2025 12:17-0400 Body brgenyjoilw22.7 [degF]Fidel Abbott MD Work Phone: 1(246)[address] [place], [place] 5503106-04-2025 12:17-0400 Diastolic blood luiufwhr28 mm[Hg]Fidel Abbott MD Work Phone: 1(649)[address] [place], [place] 5503106-04-2025 12:17-0400 Heart rate56 /minFidel Abbott MD Work Phone: 1(824)[address]06-04-2025 12:17-0400 SaO2% (BldA) [Mass fraction]97 %Fidel Abbott MD Work Phone: 1(752)[address] [place], [place] 7066906-04-2025 12:17-0400 Systolic blood orvlbhoy71 mm[Hg]Fidel Abbott MD Work Phone: 1(039)865-[address] [place], [place] 2431605-20-2025 11:19-0400 Body qdgzom622.34 cmFidel Abbott MD Work Phone: 1(667)22599 [address]05-20-2025 11:19-0400 Body mass index (BMI) [Ratio]31.4 kg/m2Fidel Abbott MD Work Phone: 1(093)[address] [place], [place] 5503105-20-2025 11:19-0400 Body gibman800.05 kgFidel Abbott MD Work Phone: 1(617)[address]05-20-2025 10:28-0400 Body manchrdmilq31.1 [degF]Fidel Abbott MD Work Phone: 1(895)[address] [place], [place] 7066905-20-2025 10:28-0400 Diastolic blood bwjogyby03 mm[Hg]Fidel Abbott MD Work Phone: 1(789)[address]05-20-2025 10:28-0400 Heart rate71 /minFidel Abbott MD Work Phone: 1(493)[address]05-20-2025 10:28-0400 Respiratory rate16 /minFidel Abbott MD Work Phone: 1(132)[address]05-20-2025 10:28-0400 Systolic blood vxtrkkzy942 mm[Hg]Fidel Abbott MD Work Phone: 1(399)[address]05-05-2025 10:49-0400 Body ywjouc941.3 cmFidel Abbott MD Work Phone: [facility] ServicesAsifxkoxpd99-76-9815 10:49-0400Body temperature 97.5 [degF]Fidel Abbott MD Work Phone: [facility] ServicesIsekjljgor58-87-8768 10:49-0400Diastolic blood yybbxiym42 mm[Hg]Fidel Abbott MD Work Phone: [facility] ServicesElnffwecup11-42-8045 10:49-0400Heart rate57 /min Fidel Abbott MD Work Phone: [phone] ServicesVvzhmcahxq72-28-9909 10:49-0400Respiratory rate18 /minFidel Abbott MD Work Phone: 1(919)[facility] ServicesPvgkgujnzs08-61-7179 10:49-2063YiC2% (BldA) [Mass fraction]98 %Fidel Abbott MD Work Phone: 1(336)[address] [place], [place] [address] Health ServicesQcuatscwwi31-04-3427 10:49-0400Systolic blood fxkhcruo518 mm[Hg]Fidel Abbott MD Work Phone: 1(592)[address] [place], [place] 4504212-17-2024 11:23-0500Body vyhzsd263.34 cmFidel Abbott MD Work Phone: 1(007)[address] [place], [place] 5503112-17-2024 11:23-0500 Body mass index (BMI) [Ratio]31.4 kg/m2Fidel Abbott MD Work Phone: 1(498)[address] [place], [place] 5503112-17-2024 11:23-0500 Body rsuxzo864.05 kgFidel Abbott MD Work Phone: 1(687)[address] [place], [place] 5503112-17-2024 10:50-0500 Body rghbsxlagwr74.2 [degF]Fidel Abbott MD Work Phone: 1(980)[address] [place], [place] 5503112-17-2024 10:50-0500 Diastolic blood mm[Hg]Fidel Abbott MD Work Phone: 1(058)[address] [place], [place] 5503112-17-2024 10:50-0500 Heart rate61 /minFidel Abbott MD Work Phone: 1(298)[address] [place], [place] 5503112-17-2024 10:50-0500 Respiratory rate18 /minFidel Abbott MD Work Phone: 1(186)[address] [place], [place] 5503112-17-2024 10:50-0500 Systolic blood panccduc459 mm[Hg]Fidel Abbott MD Work Phone: 1(075)[address] [place], [place] 5503111-12-2024 11:44-0500 Body gbtivd009.34 cmFidel Abbott MD Work Phone: 1(094)[address] [place], [place] 5503111-12-2024 11:44-0500 Body mass index (BMI) [Ratio]31.4 kg/m2Fidel Abbott MD Work Phone: 1(360)[address] [place], [place] 5503111-12-2024 11:44-0500 Body mscuwb493.05 kgFidel Abbott MD Work Phone: 1(876)[address] [place], [place] 5503111-12-2024 10:51-0500 Body xjlowdlxitp08.1 [degF]Fidel Abbott MD Work Phone: 1(323)[address] [place], [place] 5503111-12-2024 10:51-0500 Diastolic blood onzgphuo39 mm[Hg]Fidel Abbott MD Work Phone: 1(820)[address] [place], [place] 5503111-12-2024 10:51-0500 Heart rate64 /minFiedl Abbott MD Work Phone: 1(995)[address] [place], [place] 5503111-12-2024 10:51-0500 Respiratory rate18 /minFidel Abbott MD Work Phone: 1(259)[address] [place], [place] 5503111-12-2024 10:51-0500 Systolic blood vbpdpwne260 mm[Hg]Fidel Abbott MD Work Phone: 1(795)[address] [place], [place] 5503110-24-2024 11:52-0400 Body .3 cmFidel Abbott MD Work Phone: 1(540)[address]17916[address] [place], [place] [address]Wdavnonnpo43-42-8551 11:52-0400Body temperature 97.5 [degF]Fidel Abbott MD Work Phone: 1(160)38235[address] [place], [place] [address]Dfosmimcff46-21-7288 11:52-0400Diastolic blood wxvdesus41 mm[Hg]Fidel Abbott MD Work Phone: 1(399)5570580[facility] ServicesAgubdgyade16-20-2646 11:52-0400Heart rate57 /min Fidel Abbott MD Work Phone: 1(419)[address]10-24-2024 11:52-0400Respiratory rate20 /minFidel Abbott MD Work Phone: 1(800)9-5913[facility] ServicesBxascswufp50-54-2407 11:52-5238AiM5% (BldA) [Mass fraction]99 %Fidel Abbott MD Work Phone: [facility] ServicesPbqyyqtbsz98-61-8732 11:52-0400Systolic blood mm[Hg]Fidel Abbott MD Work Phone: 1(862)[address] [place], [place] [address]Kaoxidmchg90-70-8785 13:47-0400Body gxehpk901.3 cmFidel Abbott MD Work Phone: 1(367)[address] [place], [place] 4504208-22-2024 13:47-0400Body temperature 97.5 [degF]Fidel Abbott MD Work Phone: 1(743)[address] [place], [place] [address]Sqylzsqbxj63-00-4032 13:47-0400Diastolic blood okeriooo83 mm[Hg]Fidel Abbott MD Work Phone: 1(916)[address] [place], [place] [address]Efkauffjvb09-51-4912 13:47-0400Heart rate60 /min Fidel Abbott MD Work Phone: [facility] ServicesYovusdspyi73-62-0079 13:47-0400Respiratory rate18 /minFidel Abbott MD Work Phone: [facility] ServicesPwcmoxljnt95-75-5798 13:47-0436JjH9% (BldA) [Mass fraction]97 %Fidel Abbott MD Work Phone: 1(213)124-[address] [place], [place] [address]Dckintylkn87-14-3082 13:47-0400Systolic blood zzbacdvt985 mm[Hg]Fidel Abbott MD Work Phone: 1(066)8345846[facility] ServicesTkjzpcgmng25-48-2986 13:27-0500Diastolic blood ocejnwqx62 mm[Hg]MD Fidel Abbott Work Phone: [facility]03-08-2024 13:27-0500 Heart rate60 /minMD Fidel Abbott Work Phone: 1(419)547-[address] [place], [place] 8466303-08-2024 13:27-0500 Respiratory rate12 /minMD Fidel Abbott Work Phone: 1(725)314-[facility]03-08-2024 13:27-0500 SaO2% (BldA) [Mass fraction]98 %MD Fidel Abbott Work Phone: 1(627)010-[facility]03-08-2024 13:27-0500 Systolic blood ojnhfsaj965 mm[Hg]MD Fidel Abbott Work Phone: 1(259)822-[address] [place], [place] 2431603-08-2024 10:49-0500 Body uvsrdw958.34 cmMD Fidel Abbott Work Phone: 1(052)370-[address] [place], [place] 2431603-08-2024 10:49-0500 Body maqwbxcwyfx18 [degF]MD Fidel Abbott Work Phone: 1(836)904-[address] [place], [place] 2431603-08-2024 10:49-0500 Body .3 kgMD Fidel Abbott Work Phone: 1(639)217-[address] [place], [place] 2431602-08-2024 10:40-0500 Body ubzgzg469.8 cmJonathan Brown DPM Work Phone: [facility] [id number] 10:40-0500Body mass index (BMI) [Ratio]35.87 kg/r9OsfzwhdjJonathan Moffett DPM Work Phone: [facility] [id number] 10:40-0500Body bjtvra630.4 kgJonathan Moffett DPM Work Phone: [facility] ServicesXzwiuraauk40-72-1991 10:40-0500Diastolic blood fscmlnvy76 mm[Hg]Jonathan Moffett DPM Work Phone: [facility] [id number] 10:40-0500Heart rate79 /min Jonathan Moffett DPM Work Phone: [facility] ServicesPqvicgffwq85-11-5052 10:40-0500Systolic blood vgihcjkh708 mm[Hg]Jonathan Moffett DPM Work Phone: [facility] [id number] 13:06-0500Body mass index (BMI) [Ratio]34.8 kg/m2MD Fidel Abbott Work Phone: [phone] [place], [place] 2431602-06-2024 12:48-0500 Body hyunrx603.34 cmMD Fidel Abbott Work Phone: [phone]02-06-2024 12:48-0500 Body mfjjeo157.39 kgMD Fidel Abbott Work Phone: 1(445)[address]02-06-2024 11:25-0500 Body azbkseevjpq01.3 [degF]MD Fidel Abbott Work Phone: 1(465)[address]02-06-2024 11:25-0500 Diastolic blood viublqzj02 mm[Hg]MD Fidel Abbott Work Phone: 1(564)[address]02-06-2024 11:25-0500 Heart rate64 /minMD Fidel Abbott Work Phone: 1(675)203-[address] [place], [place] 2431602-06-2024 11:25-0500 Respiratory rate18 /minMD Fidel Abbott Work Phone: 1(140)[address]02-06-2024 11:25-0500 Systolic blood jqlgurle828 mm[Hg]MD Fidel Abbott Work Phone: 1(466)929-[address] [place], [place] 2431608-14-2023 13:10-0400 Blood Pressure LocationPakasia VILLA [facility]08-14-2023 13:10-0400Diastolic blood nwepyfwt53 mm[Hg]Jovanny VILLA [facility]08-14-2023 13:10-0400Heart rate78 /minJovanny VILLA [facility]08-14-2023 13:10-0400Systolic blood gfalndkb246 mm[Hg]Jovanny VILLA [facility]03-31-2023 14:00-0400Body ygzvywyiaey05.81 [degF]Eli Pimentel MD Work Phone: [facility]03-31-2023 14:00-0400Diastolic blood fhttfeea60 mm[Hg]Eli Pimentel MD Work Phone: [facility]03-31-2023 14:00-0400Heart rate70 /minEli Pimentel MD Work Phone: [facility]03-31-2023 14:00-0400 Respiratory rate18 /minEli Pimentel MD Work Phone: [facility]03-31-2023 14:00-6470DsU1% (BldA) [Mass fraction]95 %Eli Pimentel MD Work Phone: [facility]03-31-2023 14:00-0400Systolic blood ekngfbxc876 mm[Hg]Eli Pimentel MD Work Phone: [facility]03-31-2023 05:30-0400Body mass index (BMI) [Ratio]34.28 kg/c5LabjcxdEli Pimentel MD Work Phone: [facility]03-31-2023 05:30-0400Body .49 kgEli Pimentel MD Work Phone: [phone]03-30-2023 04:54-0400Body gopiny663.3 cmEli Pimentel MD Work Phone: [facility]03-07-2023 12:14-0500Body .72 cmMD Fidel Abbott Work Phone: [facility]03-07-2023 12:14-0500 Body mass index (BMI) [Ratio]41 kg/m2MD Fidel Abbott Work Phone: 1(419)[address] [place], [place] 5503103-07-2023 12:14-0500 Body iwkhvk443.46 kgMD Fidel Abbott Work Phone: 1(627)[address] [place], [place] 5503103-07-2023 09:52-0500 Body dzpoakjqilu04 [degF]MD Fidel Abbott Work Phone: 1(188)[address] [place], [place] 5503103-07-2023 09:52-0500 Diastolic blood ybbvgrkv32 mm[Hg]MD Fidel Abbott Work Phone: 1(203)[address] [place], [place] 5503103-07-2023 09:52-0500 Heart rate76 /minMD Fidel Abbott Work Phone: 1(562)[address] [place], [place] 5503103-07-2023 09:52-0500 Systolic blood yyevsewv377 mm[Hg]MD Fidel Abbott Work Phone: 1(380)[address] [place], [place] 5503112-06-2022 12:06-0500 Body fnosid016.34 cmMD Fidel Abbott Work Phone: 1(545)[address] [place], [place] 5503112-06-2022 12:06-0500 Body mass index (BMI) [Ratio]34.8 kg/m2MD Fidel Abbott Work Phone: 1(262)[address] [place], [place] 5503112-06-2022 12:06-0500 Body sqixxo699.39 kgMD Fidel Abbott Work Phone: 1(324)[address] [place], [place] 5503112-06-2022 11:37-0500 Body zcgaknplkoa01.7 [degF]MD Fidel Abbott Work Phone: 1(145)[address] [place], [place] 5503112-06-2022 11:37-0500 Diastolic blood mkzbqgay60 mm[Hg]MD Fidel Abbott Work Phone: 1(906)[address] [place], [place] 5503112-06-2022 11:37-0500 Heart rate68 /minMD Fidel Abbott Work Phone: 1(571)[address] [place], [place] 5503112-06-2022 11:37-0500 Respiratory rate18 /minMD Fidel Abbott Work Phone: [facility]12-06-2022 11:37-0500 Systolic blood mm[Hg]MD Fidel Abbott Work Phone: [facility] Encounters Encounter DateEncounter TypeCare ProviderFacilityStart: 34-31-9871iuvidplskt Jovanny Bustoscility:CD:[id number]: 02-01-2025 End: 87-74-3736qmdbplgucyTckb Naderer MD Work Phone: -[facility] ClydeStart: 02-01-2025 End: 94-66-9374Sqvqwhe encounter procedureFidel Abbott MD-[facility] [place] Work Phone: Start: 01-25-2025 End: 56-06-0312zrirnjyexoMnip Naderer MD Work Phone: [phone]-Lqnmiutdr Health Infect DisStart: 01-25-2025 End: 78-96-4217Zkotanz encounter procedureMiclori Morelos MD-[facility] Infect Dis Work Phone: Start: 23-98-3283cdhnhulzxuSkrbet Vargas [facility]: 78-54-2830Wcypjgpgqz Recurring Cathy Brar MD-[facility] [place] Work Phone: Start: 01-15-2025 End: 03-09-5418lhnfoccnxnUlfxuwg R WATERSFacility:EU BellevueStart: 01-15-2025 End: 28-71-5192Pwnqofc encounter procedureJovanny VILLA [facility] start: 17-01-7410Qxr-patient / Non-visitPeter Shruti ZENDEJAS MS-[facility] Work Phone: Start: 72-37-7856Zdo-patient / Non-visitApcindy River MD-[facility] Work Phone: Start: 11-22-2024 End: 24-29-7967NqxxgwKfxz Naderer MD Work Phone: noms CWM FMComment on above:Primary hypertension ; Benign hypertension ; Type 2 diabetes mellitus with hyperglycemia, without long-term current use of insulin (HCC); DyslipidemiaStart: 11-01-2024 End: 50-03-7850EnhzylYfjk Naderer MD Work Phone: noms CWM FMComment on above:Type 2 diabetes mellitus with hyperglycemia, without long-term current use of insulin (HCC)Start: 10-02-2024 End: 52-57-9801Vhacwcry Result EncounterCathy Brar MD Work Phone: noms External Department UnsolicitedStart: 10-02-2024 End: 56-62-2521Cknoople Result Mulu Edwards MD Work Phone: noms External Department UnsolicitedStart: 10-02-2024 End: 84-94-3237Lbebmclwx to same day surgery elbaCathy Brar MD-[facility]Start: 10-02-2024 End: 58-81-3137kobuitiqxcXelt Naderer MD Work Phone: [facility] Work Phone: Start: 09-26-2024 End: 89-31-8063Qyupntwmu Result EncounterGeneric External Data ProviderNOMS External Department UnsolicitedStart: 09-26-2024 End: 75-36-3531Bxfqvlwsp Result EncounterGeneric External Data ProviderNOMS External Department UnsolicitedStart: 09-11-2024 End: 26-31-2913Ocbjbgdkk Result EncounterGeneric External Data ProviderNOMS External Department UnsolicitedStart: 09-11-2024 End: 13-76-6879Ynqufkbtm Result EncounterGeneric External Data ProviderNOMS External Department UnsolicitedStart: 08-30-2024 End: 94-38-4514Nsdffxz encounter Jagruti Abbott MD Work Phone: [facility] Work Phone: Start: 08-30-2024 End: 02-97-0872ztdquvrllhBknf Naderer MD Work Phone: [facility] Work Phone: Start: 43-36-2894Varogjqtsj Geri Abbott MD Work Phone: [facility] [place] Work Phone: Start: 08-10-2024 End: 09-64-0133Lictkunfq Result EncounterGeneric External Data ProviderNOMS External Department UnsolicitedStart: 08-10-2024 End: 37-01-2199Tlaigqvqx Result EncounterGeneric External Data ProviderNOMS External Department UnsolicitedStart: 07-31-2024 End: 03-32-9574Vcidgb Silverio Abbott MD Work Phone: noms CWM FMStart: 07-31-2024 End: 29-86-0377Uopknf Silverio Abbott MD Work Phone: noms CW FMStart: 07-31-2024 End: 35-42-6851Aggzkc outpatient visit 25 minutesFidel Abbott MD Work [...] to underlying condition with diabetic polyneuropathy ([facility])Start: 07-31-2024 End: 52-92-6607Vtwvphx encounter Jagruti Abbott MD Work Phone: noms HealthcareStart: 07-31-2024 End: 27-22-4042xumtlyzdvfUGCF NADERERNot AvailableStart: 05-30-2024 End: 14-06-0588Iqclpcamo Result EncounterGeneric External Data ProviderNOMS External Department UnsolicitedStart: 05-30-2024 End: 14-64-9062Hfdjcgffn Result EncounterGeneric External Data ProviderNOMS External Department UnsolicitedStart: 69-84-7859ledwplmworQDDCVACZ E WESTLEY Facility:[facility]art: 04-17-2024 End: 82-76-3122Fkajkugwn encounterScanning Provider ExternalN [facility]edoStart: 04-14-2024 End: 68-37-2499Iojscyfsu encounterBrooke Dalila [facility] CenteredoStart: 04-06-2024 End: 46-98-0732Aqqngtqiv encounterBrooke Dalila [facility] BallardoStart: 03-14-2024 End: 74-94-0225crsdgbzubhCczt Naderer MD Work Phone: [facility] Work Phone: Start: 03-14-2024 End: 71-85-2533Veotrdyxny RecurringFidel Abbott MD Work Phone: [facility] [place] Work Phone: Start: 03-13-2024 End: 62-33-6500ZdcsucSous Naderer MD Work Phone: noms CWM FMComment on above:PruritusStart: 03-10-2024 Non-patient / Non-visitFidel Abbott MD Work Phone: [facility] Work Phone: Start: 03-10-2024 End: 29-47-7490Mnrhhcrlk Result EncounterGeneric External Data ProviderNOMS External Department UnsolicitedStart: 03-10-2024 End: 30-39-3782Cvbfrhekn Result EncounterGeneric External Data ProviderNOMS External Department UnsolicitedStart: 03-06-2024 End: 32-88-0496Rsdibcjwt Result EncounterGeneric External Data ProviderNOMS External Department UnsolicitedStart: 03-06-2024 End: 45-93-3335Cdzrjnqhe Result EncounterGeneric External Data ProviderNOMS External Department UnsolicitedStart: 02-14-2024 End: 78-67-9931Utdznffno Result EncounterGeneric External Data ProviderNOMS External Department UnsolicitedStart: 02-14-2024 End: 80-87-2130Tyhwpgphn Result EncounterGeneric External Data ProviderNOMS External Department UnsolicitedStart: 89-06-0570Rwvvahsqtc Geri Abbott MD Work Phone: [facility] [place] Work Phone: Start: 02-08-2024 End: 11-53-3604Lkqumlw encounter procedureFidel Abbott MD Work Phone: [facility]-Lab [facility] [place] Work Phone: Start: 02-08-2024 End: 20-92-2901nexxnabjinNjbz Naderer MD Work Phone: [facility] Work Phone: Start: 01-20-2024 End: 87-67-8184Popkce flowsJane Abbott MD Work Phone: noms CWM FMStart: 01-20-2024 End: 51-57-4954Smtpuu flowsJane Abbott MD Work Phone: noms CWM FMStart: 01-20-2024 End: 31-90-6674Xufxii outpatient visit 15 minutesFidel Abbott MD Work Phone: noms CWM FMComment on above:Urticaria (Primary Dx) Start: 01-20-2024 End: 38-60-1405neiafzrqpeFSKD NADERERNot AvailableStart: 01-17-2024 End: 15-17-9988Qpjhfd Ursula Valdivia MD Work Phone: [facility] Comment on above:Stage 3a chronic kidney disease (CMS-HCC) (Primary Dx)Start: 01-12-2024 End: 18-61-7688Bzknpcrtm encounterScanning Provider ExternalPHN [facility] BallardoStart: 12-02-2023 End: 18-53-3546Zkncpgomn Result EncounterGeneric External Data ProviderNOMS External Department UnsolicitedStart: 12-02-2023 End: 83-95-4399Dypdqkpzh Result EncounterGeneric External Data ProviderNOMS External Department UnsolicitedStart: 11-18-2023 End: 44-70-2247Cucfvn outpatient visit 25 minutesFidel Abbott MD Work Phone: noms CWM FMComment on above:Type 2 diabetes mellitus with hyperglycemia, without long-term current use of insulin (CMS/HCC) (Primary Dx); Benign hypertension (CMS/HCC); Major depressive disorder, recurrent episode, mild (HCC) (CMS/HCC); Incontinence overflow, urine; Pruritus; Chronic kidney disease, stage 3a (HCC) (CMS/HCC); Encounter for long-term (current) use of medications; Cauda equina syndrome (CMS/HCC)Start: 11-18-2023 End: 22-52-0049cwjzmuwlddZUSK NADERERNot AvailableStart: 11-12-2023 End: 00-91-1569Utcwicn encounter procedureJovanny VILLA [facility] [place] start: 10-11-2023 End: 97-51-1700qrcgfgpcxwQmabl CervantesProMedica Fresno [facility] & Surgical Hospitaltart: 07-08-2023 End: 84-32-8565rtadhsiwykDM Fidel Abbott Work Phone: [facility] Work Phone: Start: 07-08-2023 End: 88-65-8581Zvgpqpym ReferredMD Fidel Abbott Work Phone: [facility]-LAB Path Spec Titi HospStart: 06-04-2023 End: 72-00-6241Pufsmfluf to same day surgery centerOH Fidel Abbott Work Phone: [facility] CampusStart: 05-18-2023 End: 81-11-6412Poprtagwi Result EncounterGeneric External Data ProviderNOMS External Department UnsolicitedStart: 05-18-2023 End: 81-51-9847Rxmgymkfe Result EncounterGeneric External Data ProviderNOMS External Department UnsolicitedStart: 27-89-0665Tqpsivzpe encounterSandhya FRANCOMS NMA PODComment on above:PrescriptionStart: 03-69-8263Ntaat abstractingJonathan Moffett DPM Work Phone: noMS CI PODIATRYStart: 05-06-2023 End: 33-18-8851Mmvnpn outpatient visit 25 minutesJonathan Moffett DPM Work [...] layer exposed (CMS/HCC); Venous insufficiencyStart: 05-04-2023 End: 63-38-7605pngqqbqmqgKO Fidel Abbott Work Phone: [facility] Work Phone: Start: 05-04-2023 End: 92-76-2082Sxvdxgroji RecurringMD Fidel Aguirreerer Work Phone: [facility] [place] Work Phone: Start: 11-09-2022 End: 48-66-2700Tlptxkr encounter procedurePagregwillam VILLA [facility] start: 09-25-2022 End: 70-01-1909zciqrmcqttYFJNJamie Awad [facility] HospitalStart: 09-18-2022 End: 87-43-6257jyzyjxiovkWNDHVBN W PARSELLMercy [facility] HospitalStart: 09-18-2022 End: 76-79-8403Uejvkkdprv hospital [facility] [address] [facility] UltrasoundComment on above:Cauda equina syndrome (HCC); Neurogenic bladder; Urinary retention; Urinary incontinence without sensory awarenessStart: 2022 End: 44-89-1665eqxzlhfbelHXZSML ZACIEWSKIMercy [facility] HospitalStart: 07-02-2022 End: 91-87-0773bvjstyulkqIQCHZPASHELLY Campos [facility] HospitalStart: 07-02-2022 End: 52-79-5559Jpnsyzztea hospital visit by Mike Abbott MD Work Phone: mthz LaboratoryComment on above:Acute kidney injury (HCC); Iron deficiency anemia, unspecified iron deficiency anemia typeStart: 06-22-2022 End: 34-12-8809Totmngptzu and management of inpatientSLUCIO Montero [facility] HospitalStart: 06-22-2022 End: 14-65-2752Mlilplooou and management of inpatientEli Pimentel MD Work Phone: mthz [facility] MED SURGComment on above:Acute kidney injury (HCC) (Primary Dx); Hyperkalemia; Iron deficiency anemia, unspecified iron deficiency anemia typeStart: 06-22-2022 End: 89-03-9805qjmlsglvbdYLKLUL ZACIEWSKIMercy [facility] HospitalStart: 06-22-2022 End: 85-10-3752Cdionaxqvu hospital visit by Mike Abbott MD Work Phone: mthz EKGComment on above:Neurogenic bladderStart: 06-02-2022 End: 72-99-0771llqtkdcrrtUE Fidel Abbott Work Phone: [facility] Work Phone: Start: 06-02-2022 End: 30-04-7714Etqyxhgfcn RecurringMD Fidel Abbott Work Phone: [facility] [place] Work Phone: Start: 03-14-2022 End: 66-68-2792atrkjhhbdhWQ ALBERT V VARGASFacility:C2Qpcbg: 03-03-2022 End: 64-09-2987vwjarvkbdcIC Marc Naderer Work Phone: [facility] Work Phone: Start: 03-03-2022 End: 63-18-0260Uuxwnbprbw RecurringMD Fidel Abbott Work Phone: [facility] [place] Work Phone: Start: 02-26-2022 End: 33-73-2046brhrasuleeKT ALBERT V VARGASFacility:G1Xzqqn: 05-30-2021 End: 62-29-5753fnhqtawddvVD FIDEL Geoff ANTHONYRFacility:C7Rcemd: 04-09-2017 End: 04-51-9723Vcnwjmuycg and management of inpatientSUSIE [facility] Procedures DateProcedureProcedure DetailPerforming ClinicianStart: 85-67-1234WORNVBL POCT GLUCOMETERSCathy Brar MD Work Phone: Start: 08-20-6402FMCJYZU Kristina Brar MD Work Phone: Start: 78-73-4336SPXMJDSKN Kristina Brar MD Work Phone: Start: 57-40-9555LocisdbrhvvZuhc Naderer MD Work Phone: Start: 45-88-4178OLPEDQM POCT GLUCOMETERSCathy Brar MD Work Phone: Start: 85-72-7103WOD CBC WITH AUTO DIFFGeneric External Data ProviderStart: 14-43-1023FCI CBC WITH AUTO DIFFGeneric External Data ProviderStart: 66-24-6976ZJJ CBC WITH AUTO DIFFGeneric External Data ProviderStart: 87-66-1652ZST CBC WITH AUTO DIFFGeneric External Data Provider Start: 76-38-8990EFS CBC WITH AUTO DIFFGeneric External Data ProviderStart: 97-19-7191MMV 12-LEADGeneric External Data ProviderStart: 40-31-6536SVOVIPDVT BLOOD PRESSUREGeneric External Data ProviderStart: 49-39-1775CQA SED RATEGeneric External Data ProviderStart: 49-74-2524LYG CBC WITH AUTO DIFFGeneric External Data ProviderStart: 59-26-7547Gzgykkhayeyvr of transfusion reactionMD Fidel Abbott Work Phone: Start: 45-00-3526RxqrfwzszlyTY Fidel Abbott Work Phone: Start: 80-07-5021GO ANKLE LT WO CONGeneric External Data ProviderStart: 56-42-3142Mhwdkxizssdfjsdvf with dilation of urethral stricturePatrick VILLA Start: 91-80-5181Vz retroperitoneal real time w/image completeBethany W Mirna VICE PRESIDENT OF PRODUCT MARKETING - [employer]GER Work Phone: Start: 00-06-6837Nciyemf urethrotomyPatrick VILLA Start: 23-67-6698Zwzwwbh urethrotomyPatrick VILLA Start: 39-20-9988Hdoyp metabolic panel calcium total Shelly Mondragon VICE PRESIDENT OF PRODUCT MARKETING - [employer] Work Phone: Start: 06-26-2022 End: 61-56-7290PIZRGHWZTII POLYPECTOMY SNARE/COLD BIOPSYKaterina Atkins MD Work Phone: Start: 06-26-2022 End: 76-14-7760Uaapfijunineo intra/transmural needle aspirat/bxKaterina Atkins MD Work Phone: Start: 06-26-2022 End: 85-69-2976RaqstzvuygpPvcocu N Chidi MD Work Phone: Start: 34-53-8015MypsbmtlmhwjqouohyryevftohGgikzv N Chidi MD Work Phone: Start: 78-18-3778AHFRMXG, WHOLE BLOODStefscott Garcia MD Work Phone: Start: 89-84-3435Ykgop count complete auto&auto difrntl wbcKaterina Atkins MD Work Phone: Start: 65-40-2016Mdtziu ecg 1-3 leads w/interpretation & reportUnknown Provider ResultStart: 18-03-2455Bgdiz occult peroxidase actv qual feces 1 deterShelly Mondragon VICE PRESIDENT OF PRODUCT MARKETING - [employer] Work Phone: Start: 97-39-4008Lfq bact xcpt urine blood/stool aerobic isolJohn W Mechelle DPM Work Phone: start: 95-14-8558Fqqgw count complete auto&auto difrntl wbcKaterina Atkins MD Work Phone: Start: 06-25-2022 End: 14-63-9695Ohmslt ecg 1-3 leads w/interpretation & reportUnknown Provider ResultStart: 79-41-0342Dggxjryr Jose Pimentel MD Work Phone: start: 69-91-0765Cxtuv of troponin Saida Villafuerte PA-C Work Phone: Start: 06-24-2022 End: 01-51-2043Qmvjmuipnwf of packed red blood cellsShelly Mondragon VICE PRESIDENT OF PRODUCT MARKETING - [employer] Work Phone: Start: 35-08-9091Bdze tthrc r-t 2d w/wom-mode compl spec&colr dShigarth MoralesUniversity of Maryland [facility] Work Phone: Start: 10-37-9603Tlotj typing serologic aboShelly MoralesUniversity of [facility] Work Phone: Start: 86-57-3695PGYTOKQ, WHOLE BLOODStefscott Garcia MD Work Phone: Start: 06-24-2022 End: 80-94-5537Ywbugjpscby timeShigarth Tellez AndrewMedStar [facility] Work Phone: Start: 45-28-0037TFMQWQT B12 & FOLATEShyonatan MoralesJohns Hopkins [facility] Work Phone: Start: 06-24-2022 End: 25-61-7430Ryedkx ecg 1-3 leads w/interpretation & reportUnknown Provider ResultStart: 06-23-2022 End: 84-42-0268Nyesz of troponin quantitativeZoila Villafuerte PA-C Work Phone: Start: 82-45-3558Rlmfqx ecg 1-3 leads w/interpretation & reportUnknown Provider ResultStart: 06-23-2022 End: 21-20-5539Khu routine ecg w/least 12 lds i&r Carlito Villafuerte PA-C Work Phone: Start: 81-05-0449UOVZBPP, WHOLE BLOODMatias Garcia MD Work Phone: Start: 51-07-9039Ebmdh ankle complete minimum 3 views Shelly Geoff MoralesMedStar Good Samaritan Hospital Work Phone: Start: 67-55-6860Msydz panelZoila Villafuerte PA-C Work Phone: Start: 97-41-3991Ntuha dip stick/tablet rgnt auto w/o microscopyEli Pimentel MD Work Phone: start: 38-52-2045Jws bact xcpt urine blood/stool aerobic isolStefscott Garcia MD Work Phone: Start: 83-34-8591Foa routine ecg w/least 12 lds i&r onlyEli Pimentel MD Work Phone: start: 82-19-5269Abbndozuyygli metabolic panelEli Pimentel MD Work Phone: start: 84-99-0309Krw routine ecg w/least 12 lds w/i&r Angeles Nagy MD Work Phone: Start: 35-04-5877Sxsyg metabolic panel calcium total Angeles Nagy MD Work Phone: Start: 26-12-8218EIPQ GLUCOSESUSIE KIMStart: 49-89-5288KEMBG METABOLIC PANELSUSIE KIMStart: 17-30-1972NNI WITH AUTO DIFFERENTIALSUSIE KIMStart: 11-70-1357MND GLUCOSE FINGERSTICKSUSIE KIMStart: 80-04-9170NMQGDPGDG PATIENTSUSIE KIMStart: 31-40-0087STBS GLUCOSESUSIE KIMStart: 32-89-7918NTE GLUCOSE FINGERSTICKSUSIE KIMStart: 73-20-8923XLMDEGJN REMOVAL MICHAELA KIMStart: 72-55-8414WXAS GLUCOSESUSIE KIMStart: 17-13-3341IAWL BIPAP OR CPAPSUSIE KIMStart: 28-90-4731RIAXJVAI OXYGEN THERAPY PROTOCOLSUSIE KIMStart: 35-82-6620JWB GLUCOSE FINGERSTICKSUSIE KIMStart: 18-24-6499NGJNQ METABOLIC PANEL MICHAELA KIMStart: 67-05-9803KQJ WITH AUTO DIFFERENTIALSUSIE KIMStart: 04-13-2017 POCT GLUCOSESUSIE KIMStart: 98-15-5490PMUXOT AND OUTPUTSUSIE KIMStart: 53-50-6339KSY GLUCOSE FINGERSTICKSUSIE KIMStart: 52-72-6101HMMH GLUCOSESUSIE [place] Start: 61-85-4875CND GLUCOSE FINGERSTICKSUSIE KIMStart: 80-57-7567PLLI GLUCOSE MICHAELA KIMStart: 03-46-5324RDN GLUCOSE FINGERSTICKSUSIE KIMStart: 55-91-0790OP EVAL AND TREATSUSIE KIMStart: 04-79-8548VP EVAL AND TREATSUSIE KIMStart: 10-35-4078XB CONSULT TO IV TEAMSUSIE KIMStart: 34-41-1434QHRC GLUCOSESUSIE [place] Start: 20-55-2393VBER BIPAP OR CPAPSUSIE KIMStart: 72-06-1147PGIDYJML OXYGEN THERAPY PROTOCOLSUSIE KIMStart: 62-20-4829LCVCX METABOLIC PANELSUSIE KIMStart: 27-52-0196JUH WITH AUTO DIFFERENTIALSUSIE KIMStart: 96-74-8336HKA GLUCOSE FINGERSTICKSUSIE KIMStart: 04-77-6669ZMXX GLUCOSESUSIE KIMStart: 04-12-2017 INTAKE AND OUTPUTSUSIE KIMStart: 48-11-2865LUU GLUCOSE FINGERSTICKSUSIE [place] Start: 55-50-8677ZACW GLUCOSESUSIE KIMStart: 31-59-5255TLI GLUCOSE FINGERSTICK MICHAELA KIMStart: 95-50-4886BPC GLUCOSE FINGERSTICKSUSIE KIMStart: 21-00-5952SGGS GLUCOSESUSIE KIMStart: 27-40-0608VMT GLUCOSE FINGERSTICKSUSIE KIMStart: 92-09-3514QLZY GLUCOSESUSIE KIMStart: 49-73-9090UXNT BIPAP OR CPAPSUSIE [place] Start: 13-15-9115GCKLVWKT OXYGEN THERAPY PROTOCOLSUSIE KIMStart: 91-53-4721CJAHW METABOLIC PANELSUSIE KIMStart: 06-52-8734D-reactive proteinSUSIE KIMStart: 11-54-1272BJD WITH AUTO DIFFERENTIALSUSIE KIMStart: 12-68-3740HQFL GLUCOSESUSIE KIMStart: 36-95-2928QHSJJV AND OUTPUTSUSIE KIMStart: 59-56-8347XROJSCNH REMOVAL MICHAELA KIMStart: 66-16-4891EKFVPB ROWE CATHETERSUSIE KIMStart: 07-14-1361WUBV GLUCOSESUSIE KIMStart: 19-06-4307BUX GLUCOSE FINGERSTICKSUSIE KIMStart: 49-88-2572DSO GLUCOSE FINGERSTICKSUSIE KIMStart: 53-29-3736SBXUEAZMMSCFU NURSING CARE ORDER (SPECIFY)MICHAELA KIMStart: 03-65-8375RTR GLUCOSE FINGERSTICKSUSIE [place] Start: 27-77-7149EGBBRGJW PATIENTSUSIE KIMStart: 57-01-4849CKWMJOSVK AND AEROBIC CULTURESUSIE KIMStart: 75-58-1895WAA 12-LEADSUSIE KIMStart: 55-37-4242XZEX GLUCOSESUSIE KIMStart: 12-95-3876NCI GLUCOSE FINGERSTICKSUSIE KIMStart: 30-63-6474YR ARTERIAL PVR LOWER WO EXERCISESUSIE KIMStart: 68-94-8188OGU GLUCOSE FINGERSTICKSUSIE KIMStart: 36-24-5389NY CONSULT TO VASCULAR SURGERYSUSIE [place] Start: 62-09-7882AMWZ GLUCOSESUSIE KIMStart: 45-47-6571HALL BIPAP OR CPAPSUSIE KIMStart: 95-08-1353LISBASZT OXYGEN THERAPY PROTOCOLSUSIE KIMStart: 04-10-2017 POCT GLUCOSESUSIE KIMStart: 32-76-9871FDSJTM AND OUTPUTSUSIE KIMStart: 67-17-3125KTJ GLUCOSE FINGERSTICKSUSIE KIMStart: 06-89-3988Rmvve ankle complete minimum 3 viewsSUSIE KIMStart: 86-39-9101OBONB LEG/FOOT BOOTSUSIE KIMStart: 31-68-7044Hazes foot complete minimum 3 viewsSUSIE KIMStart: 60-94-0084IHEJ GLUCOSESUSIE KIMStart: 80-16-8280Xqe lower extrem oth/thn jt w/o & w/contr matr MICHAELA ONTIVEROSStart: 82-64-9165VAHKQHZRV A + B, PCRSUSIE KIMStart: 34-50-0015BKSOY INFLUENZA A/B ANTIGENSSUSIE KIMStart: 49-07-0559ETR RAPID ANTIGENSUSIE KIMStart: 38-21-4497FHUA CARB CONTROLSUSIE KIMStart: 57-58-3644GVPTNTU NUTRITION SUPPLEMENTSSUSIE KIMStart: 02-31-1456VSOZFOTPCVCFD NURSING CARE ORDER (SPECIFY) MICHAELA ONTIVEROSStart: 26-72-6728RHVFGNM WOUND DRAINAGESUSIE KIMStart: 84-90-9261RB CONSULT TO PODIATRYSUSIE KIMStart: 14-30-5182IXWT GLUCOSESUSIE KIMStart: 97-53-8051HBP GLUCOSE FINGERSTICKSUSIE KIMStart: 23-10-3926Y-reactive protein MICHAELA ONTIVEROSStart: 74-60-6127MFL WITH AUTO DIFFERENTIALSUSIE KIMStart: 04-09-2017 COMPREHENSIVE METABOLIC PANEL W/ REFLEX TO MG FOR LOW KSUSIE KIMStart: 85-29-0055FTPGIHASHW H0NMOKKL KIMStart: 38-53-9789RUWAZDAJMVIDM RATESUSIE WESTON Start: 84-01-7436DTTLA OSTOMY EVAL AND TREATSUSIE KIMStart: 54-47-2933INZIDGG, URINE CATHETERSUSIE KIMStart: 46-20-5583GUCG GLUCOSESUSIE KIMStart: 04-09-2017 HOME BIPAP OR CPAPSUSIE KIMStart: 33-06-7482MSNRGDAB OXYGEN THERAPY PROTOCOL MICHAELA ONTIVEROSStart: 01-74-7050SHX GLUCOSE FINGERSTICKSUSIE KIMStart: 52-82-2149ELQF GLUCOSESUSIE KIMStart: 31-87-7990DRGCIMF HEELS OFF OF BEDSUSIE KIMStart: 44-34-2987NHZR OF BED 60 DEGREES OR LESSSUSIE KIMStart: 63-10-6485CKSYDQL COMMUNICATIONSUSIE KIMStart: 37-07-0425XJEV PATIENTSUSIE KIMStart: 04-09-2017 CATHETER REMOVALSUSIE KIMStart: 71-41-7799XWTS BIPAP OR CPAPSUSIE KIMStart: 43-45-6107STETGU ROWE CATHETERSUSIE KIMStart: 13-46-6113BMP GLUCOSE FINGERSTICK MICHAELA KIMStart: 30-55-2653XAUSP WEIGHTSSUSIE KIMStart: 41-46-4578UTRP STAINSUSIE KIMStart: 96-19-4021PSMEZN AND OUTPUTSUSIE KIMStart: 26-40-5091LH CONSULT TO INFECTIOUS DISEASESSUSIE KIMStart: 89-24-8026GBAYG CULTURESUSIE KIMStart: 13-64-1480TKFKPZS ISOLATIONSUSIE KIMStart: 33-43-5292GOSGZJR EXTREMITYSUSIE WESTON Start: 37-66-4694PPJA CODESUSIE KIMStart: 23-43-9948COGYMAJR OXYGEN THERAPY PROTOCOLSUSIE KIMStart: 82-66-8205MMCOTP PHYSICIAN (SPECIFY)MICHAELA WESTONStart: 26-28-2630WVABIJ FOR NO MECHANICAL VTE PROPHYLAXISSUSILuciana art: 04-09-2017 VITAL SIGNSSUSILuciana [facility]: 67-13-2830VEAQTVI STATUS (DIRECT)MICHAELA ONTIVEROSAppendix structure (body structure)Jovanny VILLA Back structure, excluding neck (body structure)Jovanny VILLA CystoscopyPakosair children's hospitalk VILLA History of appendectomyPatrick VILLA Insertion of inferior vena caval filterPaAdesto Technologies Urodynamic studiesPaAdesto Technologies Plan of Treatment DateCare ActivityDetailAuthorStart: 89-50-4264Nyqwphwej for malignant neoplasm of colonBON PARKVIEW HEALTHStart: 02-01-2025 End: 89-04-7528Ktvbkex encounter ngtyofhxd69/06/2025 10:30 AM EST Office Visit [facility] [address] [place] [address] Fidel Abbott MD [address] [place] [address] [facility] FMStart: 83-45-6564AwpovzpoeRiverside Regional Medical CenterStart: 21-22-1967Lheff BMI ScreeningAdult BMI ScreeningFairfield Medical Center SystemStart: 86-70-2649Zhlvred ScreeningTobacco ScreeningCount includes the [facility]'s Hospitaltart: 59-42-7695Cdslkkn CultureAerobic CultureKeenan Private Hospitaltart: 98-30-8113Ugaouxhwm CultureAnaerobic [facility] Start: 41-87-6404Gjwohkedryn observation [Identifier] in Unspecified specimen by Gram stainKeenan Private Hospitaltart: 10-02-2024 End: 14-24-2558ZvcsdnjqsKeenan Private Hospitaltart: 36-43-1027Dgpor brachial pressure indexGreen Cross Hospital CenterStart: 07-31-2024 End: 02-80-3806Pdxbd metabolic 1998 panel - Serum or PlasmaBasic metabolic panel Lab Routine Annual physical exam Expected: 07/31/2024 (Approximate), Expires: 07/31/2025AL HealthcareComment on above:Expected: 07/31/2024 (Approximate), Expires: 07/31/2025Start: 07-31-2024 End: 00-04-8177FTS W Auto Differential panel - BloodCBC and differential Lab Routine Annual physical exam Expected: 07/31/2024 (Approximate), Expires: 0 07/31/2025 HealthcareComment on above:Expected: 07/31/2024 (Approximate), Expires: 07/31/2025Start: 07-31-2024 End: 47-81-3536Acqzjsgmxn A1c/Hemoglobin.total in BloodHemoglobin A1c Lab Routine Annual physical exam Expected: 07/31/2024 (Approximate), Expires: 07/31/2025AL HealthcareComment on above:Expected: 07/31/2024 (Approximate), Expires: 07/31/2025Start: 07-31-2024 End: 22-98-8403Critjfv function 2000 panel - Serum or PlasmaHepatic function panel Lab Routine Annual physical exam Expected: 07/31/2024 (Approximate), Expires: 07/31/2025 HealthcareComment on above:Expected: 07/31/2024 (Approximate), Expires: 07/31/2025Start: 07-31-2024 End: 84-82-2998Ojymv 1996 panel - Serum or PlasmaLipid panel Lab Routine Annual physical exam Expected: 07/31/2024 (Approximate), Expires: 07/31/2025[facility] HealthcareComment on above:Expected: 07/31/2024 (Approximate), Expires: 07/31/2025Start: 07-31-2024 End: 00-10-2369Tnedpbvuldfu/Creatinine panel in random UrineMicroalbumin / creatinine, urine ratio Lab Routine Type 2 diabetes mellitus with hyperglycemia, without long-term current use of insulin ([facility]) Expected: 07/31/2024 (Approximate), Expires: 07/31/2025[facility] Work Phone: Comment on above:Expected: 07/31/2024 (Approximate), Expires: 07/31/2025Start: 07-31-2024 End: 70-62-4943Hhfpbthc specific Ag [Mass/volume] in Serum or PlasmaPSA Lab Routine Annual physical exam Expected: 07/31/2024 (Approximate), Expires: 07/31/2025NOMS HealthcareComment on above:Expected: 07/31/2024 (Approximate), Expires: 07/31/2025Start: 07-31-2024 End: 03-81-8355Vqttzlfckky [Units/volume] in Serum or PlasmaTSH Lab Routine Annual physical exam Expected: 07/31/2024 (Approximate), Expires: 07/31/2025NOAL HealthcareComment on above:Expected: 07/31/2024 (Approximate), Expires: 07/31/2025Start: 07-31-2024 End: 40-58-5338Cfpsrro encounter tnbzufflg73/05/2025 10:45 AM EDT Office Visit [facility] [address] [place] [phone] Fidel Abbott MD [address] [place] [address] ArrivedNOMS CWM FMComment on above:ArrivedStart: 05-22-2024 End: 38-57-1271Mubarzt encounter maukeqsip95/24/2025 1:15 PM EST Office Visit [facility] [address] [place] [address] Fidel Abbott MD [address] [place] [address] [facility] C[facility] FMStart: 04-20-2024 End: 20-32-2588Htphfvk encounter qzhwzfuxz56/23/2025 1:30 PM EST Office Visit [facility] [place] [address] [place] [phone] Iraj Valdivia MD [address] [place], [place] [phone] [facility]ertart: 04-13-2024 End: 03-93-1237Vvlaxcp encounter uimkcpwmv63/16/2025 2:00 PM EST Office Visit [facility] [address] [phone] Iraj Valdivia MD [address] [place], [place] [address] [facility] Centertart: 01-20-2024 End: 54-96-4515Msgkigm encounter wekwiexts62/24/2024 11:45 AM EDT Office Visit [facility] [address] [place] [address] Fidel Abbott MD [address] [place] [address] ArrivedNOINTEGR[facility] FMComment on above:ArrivedStart: 02-22-0018DlhwflhkfHCA Florida Starke Emergencytart: 11-18-2023 End: 39-83-0726Ogzhzph, urine, randomAlbumin, urine, random Lab Routine Type 2 diabetes mellitus with hyperglycemia, without long-term current use of insulin ([facility]) Expected: 11/18/2023 (Approximate), Expires: 11/17/2024NOAL Healthcare Work Phone: Comment on above:Expected: 11/18/2023 (Approximate), Expires: 11/17/2024Start: 11-18-2023 End: 16-61-7191Sajef metabolic 1998 panel - Serum or PlasmaBasic metabolic panel Lab Routine Encounter for long-term (current) use of medications Expected: (Approximate), Expires: 11/17/2024NOAL HealthcareComment on above: Expected: 11/18/2023 (Approximate), Expires: 11/17/2024Start: 11-18-2023 End: 30-31-9441YXO W Auto Differential panel - BloodCBC and differential Lab Routine Encounter for long-term (current) use of medications Expected: 10/28 (Approximate), Expires: 11/17/2024NOAL HealthcareComment on above: Expected: 11/18/2023 (Approximate), Expires: 11/17/2024Start: 11-18-2023 End: 74-27-0609Gddicfugpw A1c/Hemoglobin.total in BloodHemoglobin A1c Lab Routine Type 2 diabetes mellitus with hyperglycemia, without long-term current use of insulin ([facility]) Expected: 11/18/2023 (Approximate), Expires: 11/17/2024 NOMS HealthcareComment on above:Expected: 11/18/2023 (Approximate), Expires: 11/17/2024Start: 11-18-2023 End: 90-77-4413Eslkpfb function 2000 panel - Serum or PlasmaHepatic function panel Lab Routine Encounter for long-term (current) use of medications Expected: 11/18/2023 (Approximate), Expires: 11/17/2024[facility] HealthcareComment on above: Expected: 11/18/2023 (Approximate), Expires: 11/17/2024Start: 11-18-2023 End: 07-53-0376Qjciq 1996 panel - Serum or PlasmaLipid panel Lab Routine Type 2 diabetes mellitus with hyperglycemia, without long-term current use of insulin ([facility]) Expected: 11/18/2023 (Approximate), Expires: 11/17/2024[facility] Healthcare Comment on above:Expected: 11/18/2023 (Approximate), Expires: 11/17/2024Start: 10-18-2023 End: 93-63-9244Oybeaas encounter qqmexpfnw91/22/2024 10:00 AM EDT Office Visit [facility] [address] [place] [address] Fidel Abbott MD [address] [place] [address] NOMS CWSam FMStart: 25-85-2450KUF test (Diabetes, CKD 3-4, OR last GFR 15-59) GFR test (Diabetes, CKD 3-4, OR last GFR 15-59)[facility]ITALStart: 93-87-5702Gkmhe screening for proteinDiabetes: Urine Protein ScreeningHeartland Behavioral Health ServicesStart: 98-88-5974Plxzwxvjtd A1c yfuwvoemengB4O test (Diabetic or Prediabetic)[facility]ITALStart: 50-27-5543TFQ test (Diabetes, CKD 3- 4, OR last GFR 15-59)GFR test (Diabetes, CKD 3-4, OR last GFR 15-59)[facility] Hospitalart: 65-81-7095Ydvwetpdn for malignant neoplasm of colonBON PARKVIEW HEALTHStart: 58-16-7197MTV test (Diabetes, CKD 3-4, OR last GFR 15-59)GFR test (Diabetes, CKD 3-4, OR last GFR 15-59)[facility] Cl[facility]icoUN[facility] Start: 08-03-9236Ksfkryche for malignant neoplasm of colonBON PARKVIEW HEALTHStart: 56-90-9283Puctw panelLipidsBON PARKVIEW HEALTHStart: 29-37-0360YIP test (Diabetes, CKD 3-4, OR last GFR 15-59)GFR test (Diabetes, CKD 3-4, OR last GFR 15-59)[facility] ClodicoUNIVERSITY HOSPITALS TRIP[facility] MEDICAL CENTERStart: 68-25-8636IcmhgpcuqKeenan Private Hospitaltart: 05-20-2023 End: 94-59-4254Txjvhog encounter jayipdgqb47/22/2024 3:10 PM EST Office Visit [facility] [address] [facility] [address] [place] [address] Jonathan Moffett DPM [address] [facility] [address] [place] [address] [facility] CARLOS PODIATRYStart: 05-06-2023 End: 18-41-2637Zwpoote encounter evonbldrq53/08/2024 10:20 AM EST Office Visit [facility] [address] [facility] [address] [place] [phone] Jonathan Moffett DPM [address] [facility] [address] [place] [address] NOMS CI PODIATRYStart: 63-94-9597Whkfsqxay vaccination Flu vaccine (Season Ended)[facility]ITALStart: 33-27-2286Hgsyjzbcgx A1c measurementDiabetes: Hemoglobin P0RSCIKHeartland Behavioral Health ServicesStart: 09-25-2022 End: 27-54-7876Nptntbf encounter hnesqhhaz31/30/2023 Office Visit [facility] 07-08[facility]2022 End: 87-64-9359Ckszpzz encounter bgwooikne17/12/2023 Office Visit [facility] 2022 End: 34-34-9155Bxlwjeyrz to same day surgery bczosi5807/07/2022 Surgery IP Unit Angeles Nagy MD [address] [place] [address], [address] [place] [address] CYSTOSCOPY TRANSURETHROTOMY- DVIU WITH POSS TRANSURETHRAL RESECTION OF BLADDER TUMORMTHZ ORComment on above:CYSTOSCOPY TRANSURETHROTOMY- DVIU WITH POSS TRANSURETHRAL RESECTION OF BLADDER TUMORStart: 2022 End: 38-78-1240Jmrukxnemcoikkmnf w/internal urethrotomy maleCYSTOSCOPY TRANSURETHROTOMY Cauda equina syndrome (HCC) 2022 8:30 AM [facility]Start: 29-98-1901Ybfnbxwbpd hospital visit by xitpmqzjc60/11/2023 Hospital Encounter IP Unit Angeles Nagy MD [address] [place] [address], [address] [place] [address] MTHZ ORStart: 07-01-2022 End: 68-64-7943Hrnon metabolic 2000 panel - Serum or PlasmaBasic Metabolic Panel Lab Routine Acute kidney injury (HCC) Expected: 07/01/2022, Expires: 06/27/2023 [facility] Vaunte Phone: comment on above:Expected: 07/01/2022, Expires: 06/27/2023Start: 07-01-2022 End: 63-16-8564OWQ W Auto Differential panel - BloodCBC with Auto Differential Lab Routine Acute kidney injury (HCC) Iron deficiency anemia, unspecified iron deficiency anemia type Expected: 07/01/2022, Expires: 06/27/2023 Vaunte Phone: comment on above:Expected: 07/01/2022, Expires: 06/27/2023Start: 29-20-9798Wrikvr Wellness Visit (AWV)Annual Wellness Visit (AWV)[facility] [place]: 53-38-0090Tkgrtnmtp vaccinationFlu vaccine (#1)[facility] HOSPITALKeepconFogelsville: 91-99-7659Gcgbffaj foot examinationDiabetic foot examADDISON GILBERT HOSPITALRadialogica Metropolitan Hospital Centerart: 96-87-0089Hlrokkkori A1c whjrmxnwmzvC4Z test (Diabetic or Prediabetic)[facility] HOSPITALKeepconFogelsville: 40-88-4613Ykmuu panelLipidsBON CITY OF HOPE, [email or web address] [facility] MEDICAL CENTERGreat Mobile Meetings [facility]: 91-97-8706Fdvun screening for protein [facility] HOSPITALKeepconFogelsville: 02-39-6054Zvskuabwkjwgih of varicella zoster vaccineZoster (Shingles) Vaccine (1 of 2)[facility] SystemStart: 99-82-9368Hcxkafgk vaccine (1 of 2)Shingles vaccine (1 of 2)[facility]IL[facility] HOSPITALRadialogica [facility]: 16-81-5954Dcppckprs for malignant neoplasm of colonRIVERSIDE REGIONAL [facility] [employer] [facility]: 19-71-0031CUxV,Tdap and Td Vaccines (1 - Tdap)DTaP,Tdap and Td Vaccines (1 - Tdap)Count includes the [facility] Hospitaltart: 14-79-6536NJpD/Tdap/Td vaccine (1 - Tdap)DTaP/Tdap/Td vaccine (1 - Tdap)[facility] GILBERT [email or web address] [facility]ICAL CENTERGreat Mobile Meetings [facility]: 10-83-6019Pthpp screening for proteinDiabetes: Urine Protein ScreeningHeartland Behavioral Health ServicesStart: 34-60-9022Idyim BMI Follow Up PlanAdult BMI Follow Up Plan Count includes the [facility] Hospitaltart: 61-72-7630Ovknydxy screeningDiabetic retinal exam [facility]ITALStart: 20-22-5142Yreiispsk C screeningHepatitis C screen [facility]ITALStart: 21-67-2012NOG screeningHIV screenINOVA FAIRFAX HOSPITALStart: 38-65-3342Xvcnwqquhi MonitoringDepression MonitoringINOVA FAIRFAX HOSPITALStart: 50-62-4632Ydksgjocpg ScreeningDepression Screening Count includes the [facility] Hospitaltart: 98-56-4584Aamxvdum screeningDiabetes: Retinopathy ScreeningHeartland Behavioral Health ServicesStart: 23-48-2604Ywoudmeaejnp 0-64 years Vaccine (1 - PCV)Pneumococcal 0-64 years Vaccine (1 - PCV)[facility]ITALStart: 75-11-7841RAHGK-19 Vaccine (#1)COVID-19 Vaccine (#1)[facility] Start: 00-58-7695Evrldpkdt for malignant neoplasm of colonNOAL HealthcareAEROBIC CULTUREAEROBIC CULTURE Lab Routine 10/02/2024 12:38 PM EDTHUNTSMAN MENTAL HEALTH INSTITUTE Healthcare Work Phone: ANAEROBIC CULTUREANAEROBIC CULTURE Lab Routine 10/02/2024 12:38 PM EDSaint Thomas River Park HospitalBacteria identified in Unspecified specimen by Aerobe cultureMercy Memorial HospitalBacteria identified in Unspecified specimen by Anaerobe cultureMercy Memorial Hospital End: 91-33-3299Vodej metabolic 2000 panel - Serum or PlasmaBasic Metabolic Panel Lab Routine Stage 3a chronic kidney disease ([facility]) 1 Occurrences starting 1 until 01/16/2025[facility] Work Phone: Comment on above:1 Occurrences starting 01/17/2024 until 01/16/2025 End: 94-58-8602WHJ panel - Blood by Automated countCBC without diff Lab Routine Stage 3a chronic kidney disease ([facility]) 1 Occurrences starting 01/17/2024 until 01/16/2025[facility] SystemComment on above:1 Occurrences starting 01/17/2024 until 01/16/2025 End: 67-24-0664OOC W Auto Differential panel - BloodCBC auto differential Lab Routine Daily for 5 Days starting 06/23/2022 until 06/27/2022, 4 [employer] Phone: comment on above:Daily for 5 Days starting 06/23/2022 until 06/27/2022, 4 completedCulture, Wound Aerobic OnlyCulture, Wound Aerobic Only Microbiology [employer] Label Print 06/25/2022 12:20 PM EDTBYahoo! Work Phone: End: 11-18-6395Wacutyqnrq and HematocritHemoglobin and Hematocrit Lab Routine Post Transfusion Post Transfusion Post Transfustion until discontinued starting 06/24/2022, 1 [employer] Phone: comment on above:Post Transfusion Post Transfusion Post Transfustion until discontinued starting 06/24/2022, 1 completed End: 46-38-0992Nkcyymwgx [Mass/volume] in Serum or PlasmaMagnesium Lab Routine Stage 3a chronic kidney disease ([facility]) 1 Occurrences starting 01/17/2024 un til 01/16/2025Prodeltamethod SystemComment on above:1 Occurrences starting 01/17/2024 until 01/16/2025Oxygen therapy [Minimum Data Set]Initiate Oxygen Therapy Protocol Respiratory Care Routine Daily until discontinued starting 06/22/2022 Vaunte Phone: comfqbx on above:Daily until discontinued starting 06/22/2022 End: 74-72-5699Mfknqadxnbu Hormone, intactParathyroid Hormone, intact Lab Routine Stage 3a chronic kidney disease ([facility]) 1 Occurrences starting 01/17/2024 until 01/16/2025Prodeltamethod SystemComment on above:1 Occurrences starting 01/17/2024 until 01/16/2025Patient EducationKnow your [facility] Work Phone: Patient referralGreen Cross Hospital Ctr Work Phone: End: 12-84-1933Bjmpyrihw [Mass/volume] in Serum or PlasmaPhosphorus Lab Routine Stage 3a chronic kidney disease ([facility]) 1 Occurrences starting 01/17/2024 u ntil 01/16/2025Prodeltamethod SystemComment on above:1 Occurrences starting 01/17/2024 until 01/16/2025 End: 79-42-4176QLOFTDU RBC (CROSSMATCH), 1 UnitsPREPARE RBC (CROSSMATCH), 1 Units Blood Bank Routine Once for 1 Occurrences starting 06/24/2022 until 06/24/2022ON Vaunte Phone: comsvnh on above:Once for 1 Occurrences starting 06/24/2022 until 06/24/2022 End: 08-51-8432Ljbinth creat ratioProtein creat ratio Lab Routine Stage 3a chronic kidney disease ([facility]) 1 Occurrences starting 01/17/2024 until 01/16/2025ProTinker SquareComment on above:1 Occurrences starting 01/17/2024 until 01/16/2025 End: 61-79-5659Obbbdabj PathologySurgical Pathology Lab Routine One Time for 1 Occurrences starting 06/25/2022 until 06/25/2022ON Vaunte Phone: comment on above:One Time for 1 Occurrences starting 06/25/2022 until 06/25/2022Surgical PathologySurgical Pathology Lab Routine Hyperkalemia Release Upon Ordering for 1 Occurrences starting 06/26/2022 Vaunte Phone: comipii on above:Release Upon Ordering for 1 Occurrences starting 06/26/2022 End: 35-83-0071WSFRSOUS PATHOLOGY REPORTSURGICAL PATHOLOGY REPORT Lab Routine Once for 1 Occurrences starting 06/25/2022 until 06/25/2022 Vaunte Phone: comment on above:Once for 1 Occurrences starting 06/25/2022 until 06/25/2022 End: 57-92-4679UWHABWFO PATHOLOGY REPORTSURGICAL PATHOLOGY REPORT Lab Routine Once for 1 Occurrences starting 06/26/2022 until 06/26/2022ON Vaunte Phone: Comment on above:Once for 1 Occurrences starting 06/26/2022 until 06/26/2022 End: 24-82-5916EavnhbndkoQapgvaegnx Lab Routine Stage 3a chronic kidney disease ([facility]) 1 Occurrences starting 01/17/2024 until 01/16/2025ProWalker County Hospital Health SystemComment on above:1 Occurrences starting 01/17/2024 until 01/16/2025 End: 00-98-4395Azvxhuv D 25 hydroxyVitamin D 25 hydroxy Lab Routine Stage 3a chronic kidney disease ([facility]) 1 Occurrences starting 01/17/2024 until 01/16/2025ProWalker County Hospital Health SystemComment on above:1 Occurrences starting 01/17/2024 until 01/16/2025[facility] Immunizations Immunization DateImmunizationNotesCare TmidbbswQwrsfcfc07-33-1081xweayohes, injectable, quadrivalent, preservative freeMD Fidel Abbott Work Phone: [facility]11-16-2023influenza virus vaccine, unspecified formulationFidel Abbott MD Work Phone: [facility] Health ServicesXwvtzjvtye42-59-3019qpijloohc virus vaccine, unspecified formulationBalwindertricwillam [employer] [facility] SouthComment on above:Result Comment: 2022-11-09: VIS DATE: 11/02/2014 30-49-2377qxrpdocfn, injectable, quadrivalent, preservative freeFidel Abbott MD Work Phone: bon [facility]ARKVIEW HEALTHNXZPJR09-31-2823Pmgzuocgt Vaccine, unspecified formulationFidel Abbott MD Work Phone: bon [facility] HEALTHRAEZFO55-45-9498uesmmvbfc virus vaccine, unspecified formulationJovanny [employer] [facility]10-06-2015influenza, seasonal, injectableMD Fidel Abbott Work Phone: [facility]10-15-2014influenza virus vaccine, unspecified formulationPatricwillam VILLA [facility] Payers DatePayer CategoryPayerPolicy [id number]-jca [id number] Cross Blue Shield Managed Care - PPOANTHEM Member Subscriber Plan / Payer (Effective 2022-Present) Name: Ganga Stinson Relation to Subscriber: Unknown Name: Pradip Stinson Date of : 1960 Address: [place] [address] Payer ID: [id number] (NAIC) Type: Not on file Address: [place] [id number]' [facility] [id number].65973-10-7744IqqhpqcLVCX BCBS [id number] 2021- [id number] [place] [phone] [id number] Medicare1.2.840.321239.1.13.693.2.7.3.157[id number] 2.16.840.1.340097.3.57[id number] 2.16.840.1.582668.3.57[id number] 2.16.840.1.761503.3.57[id number] 2.16.840.1.753579.3.57[id number] 2.16.840.1.317232.3.57[id number] 2.16.840.1.546001.3.579.[id number] 2.16.840.1.345273.3.579.[id number] 2.16.840.1.130596.3.57[id number] 2.16.840.1.283023.3.57[id number] 2.16.840.1.837464.3.57[id number] 2.16.840.1.037849.3.57[id number] 2.16.840.1.108345.3.57[id number] 2.16.840.1.412982.3.57[id number] 2.16.840.1.644100.3.579.2.908181-42-5920Mfcvxwx6500637 2.16.840.1.412996.3.57[id number] 2..840.1.553582.3.57[id number] 2..840.1.423055.3.57[id number] 2..0.1.791680.3.579.2.727 [id number] 1959Unknown [id number] Health Insurance [id number] 2..840.1.84625[id number] 2.840.1.512113.3.579.2.531 [id number] 2.840.1.6[id number] 2.0.1.5[id number] 2.840.1.856426.3.579.2.531 Social History DateTypeDetailFacilityStart: 01-27-2022 End: 91-79-0554Klppqpp smoking status NHISNever smoked tobacco (finding) [facility]-7547[facility] End: 28-64-8815Jqklbxc use and exposureSmokeless tobacco non-userBON [employer] Phone: start: 06-22-2022 End: 49-86-7383Ksienyz intakeCurrent non-drinker of alcohol (finding)[facility] [employer] Work Phone: start: 71-39-3102Gxv Assigned At BirthNot on fileBANNER THUNDERBIRD [facility] [employer] Work Phone: start: 06-12-2022 End: 99-75-1161Jrdwtbcq to SARS-CoV-2 (event)Not sureBANNER THUNDERBIRD MEDICAL [facility] [employer] Start: 48-22-5634Oyhqacz SDOH Alcohol Coevwkbgx6AYW Blued Work Phone: start: 98-82-1240Fufwnwd SDOH Alcohol Std Kmarnx3TAQ Blued Work Phone: start: 26-80-0925Dlkjznc smoking statusNeverExecutive Urology of [facility] Medical Centertart: 04-29-2023 End: 59-28-0412Yvr Assigned At BirthCincinnati [facility] Medical Centertart: 04-29-2023 End: 32-20-3953Fazxbxq intakeLifetime non-drinker (finding)[facility] HealthcareStart: 04-29-2023 End: 05-35-8265Awncjke of Social functionNOMS HealthcareStart: 11-01-2014 End: 22-69-9499QzzXqwt (finding)[facility] SystemDo you belong to any clubs or organizations such as yazidism groups, unions, fraternal or athletic ronni ups, or school groups?NoNOMS HealthcareAre you now , , , , never or living with a partner?MarriedNOMS HealthcareHow often do you have 6 or more drinks on 1 occasion?NeverNOMS Healthcare(I/We) worried whether (my/our) food would run out before (I/we) got money to buy more. Never trueNOMS HealthcareSexual OrientationExecutive Urology of [facility] Medical Equipment Procedure CodeEquipment CodeEquipment Original TextEquipment IdentifierDates Wound debridementEPIFIX MESH SHEET 4X4.5CMFDAStart: 17-92-6646Pyima debridement Collagen wound matrix dressing()[id number] FDAStart: 91-70-2046Kbvzb debridementCollagen wound matrix dressing ()[id number] FDAStart: 97-30-7069Emwop debridement EPIFIX MESH SHEET 4X4.5CMFDAStart: 47-05-9463Harfr debridementEPIFIX MESH SHEET 4X4.5CMFDAStart: 31-79-6631Aszho debridementEPIFIX MESH SHEET 4X4.5CMFDAStart: 70-95-4934Tmgmb debridementEPIFIX MESH SHEET 4X4.5CMFDAStart: 70-42-9977Sffmx debridementEPIFIX MESH SHEET 4X4.5CMFDAStart: 75-23-4602Rkybs debridementEPIFIX MESH SHEET 4X4.5CMFDAStart: 33-68-6939Rmhcy debridementEPIFIX MESH SHEET 4X4.5CM FDAStart: 71-79-7977Wqlkf debridementEPIFIX MESH SHEET 4X4.5CMFDAStart: 51-22-4648Vykkmhiclv, toeCollagen wound matrix dressing ()[id number] FDAStart: 57-38-9633Shvod Subst Resorbable Mini [id number]: 23-19-0459Omjqmox on above:Description: tobramyicin recostituted with 10ml normal saline ref # [id number] exp 07/27/2018 lot #[id number] Goals DatePatient GoalDesired Activity/State Functional Status KlpuGvzfafujvcWfhjbjDweyvdgm75-14-1792Vxgtg score [AUDIT-C]-1 10/17/2023 1:08 PM EDT [facility]Bel[facility] HospitalFtjwmsygxz82-14-4413Qqkbybbyzi statusPatient [facility]07-21-2024How often do you have 6 or more drinks on 1 occasion?Never 10/17/2023 1:08 PM EDT Jonelle Prince [place] [address]Sucrodyaqg41-69-9463Tvsckcxrhp StatusN/AExecutive Urology of [facility] Clinical Notes 07-29-2021 to 01-23-2025 Note Date & InpySrzlOkkgsckl40-28-3242 Evaluation note* Diagnosis Onset Date Resolution Status Admit Date Diabetes mellitus due to underlying cond ition with diabetic neuropathy, wit acuteOctober 2024 10:54amPressure injury of left ischium, stage 4acute January 23, 2025 10:54amPressure injury of right ischium, stage 4acuteOctober 2024 10:54amStage IV pressure ulcer of sacral regionacuteOctober 2024 10:54amCauda equina spinal cord injurychronicOctober 2024 10:54am [facility] Work Phone: 1(960) 325-259010-28-2025 Evaluation note* Diagnosis Onset Date Resolution Status [...] with hyperglycemia, without long-term current useacuteNov2024 9:41am [facility] Work Phone: 1(183) 439-559810-20-2025 Hospital Discharge instructions Patient Education 01/15/2025 11:30:05 [...] reconstructed. Follow these instructions at home: Take dput-vjo-netkgep and prescription medicines only as told by [...] provider. Document Revised: 01/07/2023 Document Reviewed: 01/07/2023 [employer] Patient Education 2023 [employer]. Follow Up Care 01/11/2025 11:29:22 With:ALLEN NAZARIO, Jovanny Christie, URL Address: [address] [place] [id number] When: Unknown Comments:sched cysto/UD [facility] 10-20-2025 NotePatient Education Urology Urethral Stricture Urethral [...] Follow these instructions at home: ??? Take tnbx-zlg-fxzvpsk and prescription medicines only as told by [...] Reviewed: 01/07/2023 Elsevier Patient Education ? 2023 [employer] 08-15-2024 Evaluation note* Diagnosis Onset Date Resolution [...] legs with complicationacute August 30, 2024 11:16am [facility] Work Phone: 1(163) 522-317905-20-2025 Evaluation note* Diagnosis Onset Date Resolution Status Admit Date Diabetes mellitus due to underlying cond ition with diabetic neuropathy, wit acuteMay 2024 10:28amPressure injury of left ischium, stage 4acuteMay 2024 10:28amPressure injury of right ischium, stage 4acuteMay 2024 10:28amStage IV pressure ulcer of sacral regionacuteMay 2024 10:28amCauda equina spinal cord injurychronicMay 2024 10:28am [facility] Work Phone: 1(307) 136-624605-20-2025 Evaluation note* Diagnosis Onset Date Resolution Status [...] equina spinal cord injury chronicJuly 2024 10:30am [facility] Work Phone: 1(268) 222-161005-05-2025 History of Present illness Narrative* Fidel Abbott MD - 07/31/2024 11:20 AM EDTAssociated Problem(s): Class 2 severe obesity due to excess calories with serious comorbidity and body mass index (BMI) of 36.0 to 36.9 in adult ([facility]) Weight loss indicated. * Fidel Abbott MD - 07/31/2024 11:18 AM EDTAssociated Problem(s): Type 2 diabetes mellitus with hyperglycemia, without long-term current use of insulin (CMS/[facility]) Reports BS stable and due for A1C. Stick to ADA diet and limit carbs. * Fidel Abbott MD - 07/31/2024 11:18 AM EDTAssociated Problem(s): Major depressive disorder, recurrent episode, mild (HCC) (CMS/[facility]) Mood controlled with celexa and continue. * Fidel Abbott MD - 07/31/2024 11:18 AM EDTAssociated Problem(s): Incontinence overflow, urine Symptoms tolerable with medication and continue. * Fidel Abbott MD - 07/31/2024 11:18 AM EDTAssociated Problem(s): Chronic superficial gastritis Symptoms controlled with medication and continue. * Fidel Abbott MD - 07/31/2024 11:18 AM EDTAssociated Problem(s): Benign hypertension ([facility]) BP controlled and monitor PRN. * Fidel [...] Lipid panel PSA TSH documented in this encounterHeartland Behavioral Health ServicesKgtybphrcd90-74-6486 Miscellaneous Notes* Telephone Encounter - Fatemeh Cain - 04/17/2024 1:56 PM EST Pt called to reschedule new pt appt due to lack of transportation. I informed him that we have no availability in [place] until [facility] July schedule opens up. He stated he will call back the first weekof April to reschedule. documented in this encounterUniversity Hospitals Samar[facility]01-20-2025 Telephone encounter Note* Telephone Encounter - Fatemeh Cain - 04/17/2024 1:56 PM EST Pt called to reschedule new pt appt due to lack of transportation. I informed him that we have no availability in [place] until [facility] July schedule opens up. He stated he will call back the first weekof April to reschedule. [facility] Ylhajs06-93-0132 Miscellaneous Notes* Telephone Encounter - Mary Conner CMA - 04/14/2024 3:23 PM EST Left message for patient to call the office back to confirm upcoming appointment 04/20 at 1:[address] Valdivia in [place]. Also stated that patient needs to get labs done prior to upcoming appointment documented in this encounterUniversity Hospitals Samaritan Medical Center01-17-2025 Telephone encounter Note* Telephone Encounter - Mary Conner CMA - 04/14/2024 3:23 PM EST Left message for patient to call the office back to confirm upcoming appointment 04/20 at 1:[address] Valdivia in [place]. Also stated that patient needs to get labs done prior to upcoming appointment [facility]01-09-2025 Miscellaneous Notes* Telephone Encounter - Mary Conner CMA - 04/06/2024 2:38 PM EST Left message for patient to call the office back to confirm upcoming appointment 04/13 at 2:[address] Valdivia in [place]. Also stated that patient needs to get labs done prior to upcoming appointment documented in this encounterUniversity Hospitals Samaritan Medical Center01-09-2025 Telephone encounter Note* Telephone Encounter - Mary Conner CMA - 04/06/2024 2:38 PM EST Left message for patient to call the office back to confirm upcoming appointment 04/13 at 2:[address] Valdivia in [place]. Also stated that patient needs to get labs done prior to upcoming appointment [facility]12-17-2024 Progress note Author Cathy Brar [facility] HospitalNote Date/TimeDecemb2023 11:23am [place] [address] Wound Center Provider Note Signed Patient: Ganga Stinson MR#: [id number] : 1960 Acct:[id number] Age/Sex: 63 / M Copies to: MD [...] start?: 10 plus years Mode of Arrival/ Regulatory Assistant: Personal vehicle and Family Assistive Device [...] Itching Wound/Ulcer Sacrum: Bed Appearance: Beefy Red, [place], Rolled Edges and Yellow Percent of Wound [...] Ischium: Bed Appearance: Beefy Red, Bone Palpable, [place] and Yellow Percent of Wound Bed Granulated/Red: [...] Ischium: Bed Appearance: Beefy Red, Bone Palpable, [place], Rolled Edges and Yellow Percent of Wound Bed Granulated/Red: 90 Percent of Devitalized: 10 Length (cm): 0.5 Width (cm): 0.5 Depth (cm): 2.5 CM Sq: 0.250 Tunneling Position: 10:00 Tunneling Depth: 4 Surrounding Tissue Appearance: [place] and Macerated Surrounding Tissue Temp: Warm Drainage [...] signed by MD Cathy Brar> 03/14/24 1123 [facility] Work Phone: 1(887) 909-957212-17-2024 Evaluation note* Diagnosis Onset Date Resolution Status Admit Date Diabetes mellitus due to underlying cond ition with diabetic neuropathy, wit acutece 2023 10:42amPressure injury of left ischium, stage 4acute March 14, 2024 10:42amPressure injury of right ischium, stage 4acute March 14, 2024 10:42amStage IV pressure ulcer of sacral regionacuteDeceaurora [facility] 2023 10:42amCauda equina spinal cord injurychronicJeanes Hospital 2023 10:42am [facility] Work Phone: 1(421) 161-151412-17-2024 [place] [address] Wound Center Provider Note Signed Patient: Ganga Stinson MR#: [id number] : 1960 Acct:[id number] Age/Sex: 63 / M Copies to: MD [...] start?: 10 plus years Mode of Arrival/ Regulatory Assistant: Personal vehicle and Family Assistive Device [...] Itching Wound/Ulcer Sacrum: Bed Appearance: Beefy Red, [place], Rolled Edges and Yellow Percent of Wound [...] Ischium: Bed Appearance: Beefy Red, Bone Palpable, [place] and Yellow Percent of Wound Bed Granulated/Red: [...] Ischium: Bed Appearance: Beefy Red, Bone Palpable, [place], Rolled Edges and Yellow Percent of Wound Bed Granulated/Red: 90 Percent of Devitalized: 10 Length (cm): 0.5 Width (cm): 0.5 Depth (cm): 2.5 CM Sq: 0.250 Tunneling Position: 10:00 Tunneling Depth: 4 Surrounding Tissue Appearance: [place] and Macerated Surrounding Tissue Temp: Warm Drainage [...] MD DD/ 1121 Signed By: 03/14/24 1123 [facility]11-12-2024 Progress note Author Cathy Brar [facility] HospitalNote Date/TimeNovember 2023 11:44am [place] [address] Wound Center Provider Note Signed Patient: Ganga Stinson MR#: [id number] : 1960 Acct:[id number] Age/Sex: 63 / M Copies to: MD [...] start?: 10 plus years Mode of Arrival/ Regulatory Assistant: Personal vehicle and Family Assistive Device [...] Itching Wound/Ulcer Sacrum: Bed Appearance: Beefy Red, [place], Rolled Edges and Yellow Percent of Wound [...] Jelly Right Ischium: Bed Appearance: Beefy Red, [place] and Yellow Percent of Wound Bed Granulated/Red: 90 Percent of Devitalized: 10 Length (cm): 6.6 Width (cm): 7.4 Depth (cm): 4.0 CM Sq: 48.840 Undermining Position: 8-11 Undermining Depth: 3.5 Tunneling Position: 00:00 Tunneling Depth: 0 Surrounding Tissue Appearance: Rolled Edges and Rash/Irritation Surrounding Tissue Temp: Warm Drainage Amount: Large Drainage Description: Serosanguineous Drainage Odor: No Odor Left Ischium: Bed Appearance: Beefy Red, [place], Rolled Edges and Yellow Percent of Wound [...] underlying condition with diabetic neuropathy,unspecified; Z79.4 - ferry terminal agent (current) use of insulin Plan Continue with current dressing changes and pressure relief. Podiatry following the patient's foot ulcers. Follow-up in 1 month See Instructions for Orders See Instructions for Orders See Wound Discharge Instructions for Orders: Dictated By: Cathy Brar MD DD/ 1141 Signed By: <Electronically signed by MD Cathy Brar> 02/08/24 1144 [facility] Work Phone: 1(195) 696-330111-12-2024 Evaluation note* Diagnosis Onset Date Resolution Status Admit Date Diabetes mellitus due to underlying cond ition with diabetic neuropathy, wit acuteFebruary 08, 2024 10:48amPressure injury of left ischium, stage 4acute February 08, 2024 10:48amPressure injury of right ischium, stage 4acute February 08, 2024 10:48amStage IV pressure ulcer of sacral regionacuteFebruary 08, 2024 10:48amCauda equina spinal cord injurychronicFebruary 08, 2024 10:48am [facility] Work Phone: 1(199) 451-863011-12-2024 [place] [address] Wound Center Provider Note Signed Patient: Ganga Stinson MR#: [id number] : 1960 Acct:[id number] Age/Sex: 63 / M Copies to: MD [...] start?: 10 plus years Mode of Arrival/ Regulatory Assistant: Personal vehicle and Family Assistive Device [...] Itching Wound/Ulcer Sacrum: Bed Appearance: Beefy Red, [place], Rolled Edges and Yellow Percent of Wound [...] Jelly Right Ischium: Bed Appearance: Beefy Red, [place] and Yellow Percent of Wound Bed Granulated/Red: 90 Percent of Devitalized: 10 Length (cm): 6.6 Width (cm): 7.4 Depth (cm): 4.0 CM Sq: 48.840 Undermining Position: 8-11 Undermining Depth: 3.5 Tunneling Position: 00:00 Tunneling Depth: 0 Surrounding Tissue Appearance: Rolled Edges and Rash/Irritation Surrounding Tissue Temp: Warm Drainage Amount: Large Drainage Description: Serosanguineous Drainage Odor: No Odor Left Ischium: Bed Appearance: Beefy Red, [place], Rolled Edges and Yellow Percent of Wound [...] underlying condition with diabetic neuropathy,unspecified; Z79.4 - ferry terminal agent (current) use of insulin Plan Continue with current dressing changes and pressure relief. Podiatry following the patient's foot ulcers. Follow-up in 1 month See Instructions for Orders See Instructions for Orders See Wound Discharge Instructions for Orders: Dictated By: Cathy Brar MD DD/ 1141 Signed By: 02/08/24 1144 [facility]10-24-2024 History of Present illness Narrative [...] and use hydroxyzine PRN. documented in this encounterHeartland Behavioral Health ServicesFloprlqshu59-69-3226 Evaluation note* Diagnosis Stage 3a chronic kidney disease ([facility]-HCC)- Primary documented in this encounter [facility] [id number] Miscellaneous Notes* Telephone Encounter - Fatemeh Cain - 01/12/2024 9:03 AM EDT LM to schedule new pt appt. documented in this encounterUniversity Of Vermont Medical Centerdeltamethod [id number] Telephone encounter Note* Telephone Encounter - Fatemeh Cain - 01/12/2024 9:03 AM EDT LM to schedule new pt appt. [facility] [id number] Progress note Author Cathy Brar [facility] HospitalNote Date/TimeOctober 2023 11:52am [place] [address] Wound Center Provider Note Signed Patient: Ganga Stinson MR#: [id number] : 1960 Acct:[id number] Age/Sex: 63 / M Copies to: MD [...] start?: 10 plus years Mode of Arrival/ Regulatory Assistant: Personal vehicle and Family Assistive Device [...] Itching Wound/Ulcer Sacrum: Bed Appearance: Beefy Red, [place] and Yellow Percent of Wound Bed Granulated/Red: 90 Percent of Devitalized: 10 Length (cm): 2.9 Width (cm): 1.5 Depth (cm): 3 CM Sq: 4.350 Undermining Position: 360 Undermining Depth: 3.5 Surrounding Tissue Appearance: Bright Red and Rash/Irritation Surrounding Tissue Temp: Warm Drainage Amount: Large Drainage Description: Serosanguineous Drainage Odor: No Odor Right Ischium: Bed Appearance: Beefy Red, [place] and Yellow Percent of Wound Bed Granulated/Red: 90 Percent of Devitalized: 10 Length (cm): 7 Width (cm): 7.5 Depth (cm): 4.0 CM Sq: 52.500 Undermining Position: 8-11 Undermining Depth: 4.0 Tunneling Position: 00:00 Tunneling Depth: 0 Surrounding Tissue Appearance: Rolled Edges and Rash/Irritation Surrounding Tissue Temp: Warm Drainage Amount: Large Drainage Description: Serosanguineous Drainage Odor: No Odor Left Ischium: Bed Appearance: Beefy Red, [place], Rolled Edges and Yellow Percent of Wound Bed Granulated/Red: 90 Percent of Devitalized: 10 Length (cm): 0.7 Width (cm): 0.8 Depth (cm): 2.9 CM Sq: 0.560 Tunneling Position: 10:00 Tunneling Depth: 3 Surrounding Tissue Appearance: [place] Surrounding Tissue Temp: Warm Drainage Amount: Large [...] underlying condition with diabetic neuropathy,unspecified; Z79.4 - ferry terminal agent (current) use of insulin Plan Continue with current dressing changes and pressure relief. Podiatry following the patient's foot ulcers. Follow-up in 1 month See Instructions for Orders See Instructions for Orders See Wound Discharge Instructions for Orders: Dictated By: Cathy Brar MD DD/ 49 Signed By: <Electronically signed by MD Cathy Brar> 01/04/24 1052 [facility] Work Phone: 1(675) 337-787310-08-2024 [place] [address] Wound Center Provider Note Signed Patient: Ganga Stinson MR#: [id number] : 1960 Acct:[id number] Age/Sex: 63 / M Copies to: MD [...] start?: 10 plus years Mode of Arrival/ Regulatory Assistant: Personal vehicle and Family Assistive Device [...] Itching Wound/Ulcer Sacrum: Bed Appearance: Beefy Red, [place] and Yellow Percent of Wound Bed Granulated/Red: 90 Percent of Devitalized: 10 Length (cm): 2.9 Width (cm): 1.5 Depth (cm): 3 CM Sq: 4.350 Undermining Position: 360 Undermining Depth: 3.5 Surrounding Tissue Appearance: Bright Red and Rash/Irritation Surrounding Tissue Temp: Warm Drainage Amount: Large Drainage Description: Serosanguineous Drainage Odor: No Odor Right Ischium: Bed Appearance: Beefy Red, [place] and Yellow Percent of Wound Bed Granulated/Red: 90 Percent of Devitalized: 10 Length (cm): 7 Width (cm): 7.5 Depth (cm): 4.0 CM Sq: 52.500 Undermining Position: 8-11 Undermining Depth: 4.0 Tunneling Position: 00:00 Tunneling Depth: 0 Surrounding Tissue Appearance: Rolled Edges and Rash/Irritation Surrounding Tissue Temp: Warm Drainage Amount: Large Drainage Description: Serosanguineous Drainage Odor: No Odor Left Ischium: Bed Appearance: Beefy Red, [place], Rolled Edges and Yellow Percent of Wound Bed Granulated/Red: 90 Percent of Devitalized: 10 Length (cm): 0.7 Width (cm): 0.8 Depth (cm): 2.9 CM Sq: 0.560 Tunneling Position: 10:00 Tunneling Depth: 3 Surrounding Tissue Appearance: [place] Surrounding Tissue Temp: Warm Drainage Amount: Large [...] MD DD/ 1050 Signed By: 01/04/24 1052 [facility]08-22-2024 History of Present illness Narrative [...] panel CBC and differential documented in this encounterHeartland Behavioral Health ServicesJgxwinxggi61-05-4623 Progress note Author Cathy Brar [facility] HospitalNote Date/TimeAugust 2023 1:07pmD [place] [address] Wound Center Provider Note Signed Patient: Ganga Stinson MR#: [id number] : 1960 Acct:[id number] Age/Sex: 63 / M Copies to: MD [...] his foot ulcers and [facility]. Currently, [...] start?: 10 plus years Mode of Arrival/ Regulatory Assistant: Personal vehicle and Family Assistive Device [...] Sacrum: Bed Appearance: Beefy Red, Bone Palpable, [place] and Yellow Percent of Wound Bed Granulated/Red: 90 Percent of Devitalized: 10 Length (cm): 2.5 Width (cm): 2 Depth (cm): 3 CM Sq: 5.000 Undermining Position: 360 Undermining Depth: 4 Surrounding Tissue Appearance: Bright Red and Rash/Irritation Surrounding Tissue Temp: Warm Drainage Amount: Large Drainage Description: Serosanguineous Drainage Odor: No Odor Right Ischium: Bed Appearance: Beefy Red, [place] and Yellow Percent of Wound Bed Granulated/Red: [...] Odor Left Ischium: Bed Appearance: Beefy Red, [place], Rolled Edges and Yellow Percent of Wound Bed Granulated/Red: 90 Percent of Devitalized: 10 Length (cm): 0.7 Width (cm): 0.8 Depth (cm): 2.3 CM Sq: 0.560 Tunneling Position: 10:00 Tunneling Depth: 3 Surrounding Tissue Appearance: [place] Surrounding Tissue Temp: Warm Drainage Amount: Large [...] underlying condition with diabetic neuropathy,unspecified; Z79.4 - ferry terminal agent (current) use of insulin Plan Continue with [...] <Electronically signed by MD Cathy Brar> 11/09/231206 [facility] Work Phone: 1(853) 253-398908-13-2024 [place] [address] Wound Center Provider Note Signed Patient: Ganga Stinson MR#: [id number] : 1960 Acct:[id number] Age/Sex: 63 / M Copies to: MD [...] start?: 10 plus years Mode of Arrival/ Regulatory Assistant: Personal vehicle and Family Assistive Device [...] Sacrum: Bed Appearance: Beefy Red, Bone Palpable, [place] and Yellow Percent of Wound Bed Granulated/Red: 90 Percent of Devitalized: 10 Length (cm): 2.5 Width (cm): 2 Depth (cm): 3 CM Sq: 5.000 Undermining Position: 360 Undermining Depth: 4 Surrounding Tissue Appearance: Bright Red and Rash/Irritation Surrounding Tissue Temp: Warm Drainage Amount: Large Drainage Description: Serosanguineous Drainage Odor: No Odor Right Ischium: Bed Appearance: Beefy Red, [place] and Yellow Percent of Wound Bed Granulated/Red: [...] Odor Left Ischium: Bed Appearance: Beefy Red, [place], Rolled Edges and Yellow Percent of Wound Bed Granulated/Red: 90 Percent of Devitalized: 10 Length (cm): 0.7 Width (cm): 0.8 Depth (cm): 2.3 CM Sq: 0.560 Tunneling Position: 10:00 Tunneling Depth: 3 Surrounding Tissue Appearance: [place] Surrounding Tissue Temp: Warm Drainage Amount: Large [...] MD DD/ 01 Signed By: 11/09/23 1207 [facility]07-09-2024 Progress note Author Cathy Brar [facility] HospitalNote Date/TimeJuly 2023 12:20pmD [place] [address] Wound Center Provider Note Signed Patient: Ganga Stinson MR#: [id number] : 1960 Acct:[id number] Age/Sex: 63 / M Copies to: MD [...] is Dr. Abbott. Patient also sees a selector packer. Apparently he was to start on a new medication and will need to be on blood thinners because of the medication. Subjective Pain Buttock: Pain Intensity: 6 Wound/Ulcer History When did wound start?: 10 plus years Mode of Arrival/ Regulatory Assistant: Personal vehicle and Family Assistive Device [...] Itching Wound/Ulcer Sacrum: Bed Appearance: Beefy Red, [place] and Yellow Percent of Wound Bed Granulated/Red: 90 Percent of Devitalized: 10 Length (cm): 2.6 Width (cm): 1.5 Depth (cm): 2.9 CM Sq: 3.900 Undermining Position: 360 (deepest at 9) Undermining Depth: 4.5 Surrounding Tissue Appearance: Hyperpigmented Surrounding Tissue Temp: Warm Drainage Amount: Large Drainage Description: Serosanguineous Drainage Odor: No Odor Right Ischium: Bed Appearance: Beefy Red, Bone Palpable, [place] and Yellow Percent of Wound Bed Granulated/Red: 90 Percent of Devitalized: 10 Length (cm): 5 Width (cm): 7 Depth (cm): 3.5 CM Sq: 35.000 Undermining Position: 8-11 (deepest at 9) Undermining Depth: 3.7 Surrounding Tissue Appearance: Hyperpigmented Surrounding Tissue Temp: Warm Drainage Amount: Large Drainage Description: Serosanguineous Left Ischium: Bed Appearance: Beefy Red, [place] and Yellow Percent of Wound Bed Granulated/Red: [...] to start on new medications prescribed by selector packer. Patient and were told to monitor for evidence of bleeding from the wounds. Follow-up in about 1 month. See Instructions for Orders See Instructions for Orders See Wound Discharge Instructions for Orders: Dictated By: Cathy Brar MD DD/ 1115 Signed By: <Electronically signed by MD Cathy Brar> 10/05/23 [place] [facility] Work Phone: [phone]) 443-173607-09-2024 [place] [address] Wound Center Provider Note Signed Patient: Ganga Stinson MR#: [id number] : 1960 Acct:[id number] Age/Sex: 63 / M Copies to: MD [...] is Dr. Abbott. Patient also sees a selector packer. Apparently he was to start on a new medication and will need to be on blood thinners because of the medication. Subjective Pain Buttock: Pain Intensity: 6 Wound/Ulcer History When did wound start?: 10 plus years Mode of Arrival/ Regulatory Assistant: Personal vehicle and Family Assistive Device [...] Itching Wound/Ulcer Sacrum: Bed Appearance: Beefy Red, [place] and Yellow Percent of Wound Bed Granulated/Red: 90 Percent of Devitalized: 10 Length (cm): 2.6 Width (cm): 1.5 Depth (cm): 2.9 CM Sq: 3.900 Undermining Position: 360 (deepest at 9) Undermining Depth: 4.5 Surrounding Tissue Appearance: Hyperpigmented Surrounding Tissue Temp: Warm Drainage Amount: Large Drainage Description: Serosanguineous Drainage Odor: No Odor Right Ischium: Bed Appearance: Beefy Red, Bone Palpable, [place] and Yellow Percent of Wound Bed Granulated/Red: 90 Percent of Devitalized: 10 Length (cm): 5 Width (cm): 7 Depth (cm): 3.5 CM Sq: 35.000 Undermining Position: 8-11 (deepest at 9) Undermining Depth: 3.7 Surrounding Tissue Appearance: Hyperpigmented Surrounding Tissue Temp: Warm Drainage Amount: Large Drainage Description: Serosanguineous Left Ischium: Bed Appearance: Beefy Red, [place] and Yellow Percent of Wound Bed Granulated/Red: [...] underlying condition with diabetic neuropathy,unspecified; Z79.4 - ferry terminal agent (current) use of insulin Plan Continue with current dressing changes and pressure relief. Okay to start on new medications prescribed by selector packer. Patient and were told to monitor for evidence of bleeding from the wounds. Follow-up in about 1 month. See Instructions for Orders See Instructions for Orders See Wound Discharge Instructions for Orders: Dictated By: Cathy Brar MD DD/ [id number] Signed By: 10/05/23 1120 [facility]02-15-2024 Telephone encounter Note* Telephone Encounter - Sandhya Velasquez RN - 05/13/2023 3:00 PM EST Patient called to inquire about the antibiotic that was supposed to be sent after his 05/06 visit. Can you resend? Thank you! [facility] [id number] Miscellaneous Notes* Telephone Encounter - Sandhya Velasquez RN - 05/13/2023 3:00 PM EST Patient called to inquire about the antibiotic that was supposed to be sent after his 05/06 visit. Can you resend? Thank you! documented in this encounterHeartland Behavioral Health [id number] History of Present illness Narrative* Jonathan Moffett [...] or home health. Patient currently going at [facility] for decubitus ulcer Patient still awaits MRI approval as had to be resubmitted due to need for new x-ray on previous visit in awaits MRI at [facility] . Referral has been sent to [facility] wound center with attempt to follow-up for [...] unspecified whether ferry terminal agent insulin use (CMS/HCC) 3. Acute complete paraplegia [...] antibiotics Patient to follow up with [facility] decub[facility] and instructions given to contact [facility] for follow-up.. Skin flap area of ulceration [...] MRI Jonathan Moffett DPM documented in this encounterHeartland Behavioral Health [id number] [place] note Author Cathy Brar [facility] May 04, 2023 1:07pmNote Date/TimeFebruary 2023 12:48[place] [address] Wound Center Provider Note Signed Patient: Ganga Stinson MR#: [id number] : 1960 Acct:[id number] Age/Sex: 62 / M Copies to: MD [...] Patient denies other new medical problems. Last vwyskzfunrO3j was 7.2 he states. Patient denies any new medical problems. His sacral and right ischial ulcer show pink and red granulation tissue. There is no exposed bone or purulent drainage. The left ischial ulcer is very small. Subjective Pain Bilateral Buttock: Pain Intensity: 0 Right Foot: Pain Intensity: 0 Wound/Ulcer History When did wound start?: years Mode of Arrival/ Regulatory Assistant: Personal vehicle Assistive Device Used Today: [...] Itching Wound/Ulcer Right Lateral Ankle: Bed Appearance: [place] and Yellow Percent of Wound Bed Granulated/Red: [...] No Odor Right Medial Foot: Bed Appearance: [place] and Yellow Percent of Wound Bed Granulated/Red: 50 Percent of Devitalized: 50 Length (cm): 1.0 Width (cm): 1.0 Depth (cm): 0.3 CM Sq: 1.000 Surrounding Tissue Appearance: Hyperpigmented Surrounding Tissue Temp: Warm Drainage Amount: Moderate Drainage Description: Serosanguineous Drainage Odor: No Odor Sacrum: Bed Appearance: Beefy Red, [place] and Yellow Percent of Wound Bed Granulated/Red: 90 Percent of Devitalized: 10 Length (cm): 2.9 Width (cm): 1.5 Depth (cm): 2.5 CM Sq: 4.350 Undermining Position: 360 deepest at 9:00 Undermining Depth: 4.0 Surrounding Tissue Appearance: Hyperpigmented, Macerated and Callous Surrounding Tissue Temp: Warm Drainage Amount: Large Drainage Description: Serosanguineous Drainage Odor: No Odor Right Ischium: Bed Appearance: Beefy Red, [place] and Yellow Percent of Wound Bed Granulated/Red: 90 Percent of Devitalized: 10 Length (cm): 5.3 Width (cm): 7.5 Depth (cm): 4.0 CM Sq: 39.750 Surrounding Tissue Appearance: [place], Macerated and Callous Surrounding Tissue Temp: Warm Drainage Amount: Large Drainage Description: Serosanguineous Drainage Odor: No Odor Left Ischium: Bed Appearance: Beefy Red and [place] Percent of Wound Bed Granulated/Red: 100 Percent [...] underlying condition with diabetic neuropathy,unspecified; Z79.4 - ferry terminal agent (current) use of insulin (5) Foot ulcer [...] signed by MD Cathy Brar> 05/04/23 1307 [facility] Work Phone: 1(259) 474-813508-14-2023 Hospital Discharge instructions Patient Education 11/09/2022 14:08:53 [...] Follow these instructions at home: Medicines Take tara-xlt-fnytlte and prescription medicines only as told by [...] provider. Document Revised: 12/04/2020 Document Reviewed: 12/04/2020 [employer] Patient Education 2022 [employer]. Follow Up Care 10/13/2022 11:18:02 With:ALLEN NAZARIO, Jovanny Christie, URL Address: [facility] [address] , [place] [address]- [phone] When: Unknown Comments:sched cysto [facility] 03-31-2023 History of Present illness Narrative* Dragan [...] 06/26/2022 12:01 PM EDT Physical Therapy Facility/Department: [facility] Daily Treatment Note NAME: [...] 06/26/2022 12:00 PM EDT Occupational Therapy Facility/Department: [facility] Daily Treatment Note NAME: [...] 06/26/2022 9:35 AM EDT [facility] with RN. [...] Crockett RN - 06/26/2022 3:00 AM EDT [employer] Product Consultant at bedside for wound dressing change- pt incontinent of bowels. See flow sheet for details. * Panchito Crockett RN - 06/26/2022 1:30 AM EDT Pt incontinent of stool. [employer] Product Consultant at bedside for wound change dressing per order- see flow sheet for details. * Panchito Crockett RN - 06/26/2022 12:50 AM EDT Patient at bedside for reassessment and vitals- see flow sheet for details. Pt remains alert and oriented c4-calm and cooperative. GoLYTELY at bedside and auto service writer encourages patient to consume fluid- pt validates understanding. Patient currently denying pain and discomfort. Denying any additional needs, call light placed within reach, bed in lowest position. [employer] Product Consultant encourages patient to call out for assistance. Will continue to monitor. * Panchito Crockett RN - 06/26/2022 12:45 AM EDT [employer] Product Consultant at bedside- pt incontinent of stool- wound dressing changed per order. See flow sheet. * Panchito Crockett RN - 06/25/2022 10:05 PM EDT [employer] Product Consultant at bedside to for wound dressing change per order. See MAR for details. * Eloise Lopez PTA - 06/25/2022 3:56 PM EDT Physical Therapy Facility/Department: [facility] Daily Treatment Note NAME: [...] bed. Supine BLE PROM exercises in all [id number] ea. Seated EOB AROM in LAQ 2x [...] never been a smoker. He saw a docket specialist at [facility] 2 years ago in 2020. At [...] himself. He follows with wound clinic at [facility]. Mr. Stinson also denied any current or recent chest pain, abdominal pain, bleeding problems, problems with his medications or any other concerns at this time. Past Medical History: Diagnosis Date Abnormal EKG 06/23/2022 Acute kidney injury superimposed on CKD (HCC) 06/23/2022 Cauda equina syndrome ([facility]) 2003 Depression Hypertension MRSA (methicillin resistant staph aureus) culture positive 04/10/2017 right ankle Open wound of right ankle 12/30/2016 Paralysis of both lower limbs ([facility]) Paraplegia ([facility]) Type II or unspecified type diabetes [...] BEADS performed by Gabriel Haile DPM at [facility] OR AL I&D BELOW FASCIA FOOT 1 BURSAL SPACE Right 04/10/2017 RIGHT ANKLE AND RIGHT HEEL DEBRIDEMENT INCISION AND DRAINAGE WITH CULTURES SENT performed by William Jimenez MD at [facility] OR AL OFFICE/OUTPT VISIT,PROCEDURE ONLY Right 06/14/2017 FOOT DEBRIDEMENT INCISION AND DRAINAGE-ANKLE INCLUDING BONE BIOPSY performed by Justin Husseint [facility] OR TOE AMPUTATION Right 12/25/2016 right fifth toe amputation with I&D, ATB beads per Dr. Haile [employer] FILTER PLAC[employer] pettigrew filter Social History: Social History Tobacco Use [...] Pressure injury of right ankle, stage 4 ([facility]) 06/24/2022 Open wound of right ankle 12/30/2016 Mixed hyperlipidemia 04/25/2015 Hyponatremia 04/25/2015 Diabetes mellitus ([facility]) 07/02/2011 Paraplegia ([facility]) 03/12/2011 MSSA (methicillin susceptible Staphylococcus aureus) infection 05/28/2017 Bacterial infection 02/17/2017 Enterococcus faecalis infection 12/28/2016 Skin ulcer of right heel with fat layer exposed ([facility]) 09/02/2016 Skin ulcer of right 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 ([facility]) 04/25/2015 Decubitus ulcer of coccygeal region [...] Active Cardiac Condition No (decompensated HF, Arrhythmia, OR <3 weeks, severe valve disease) Risk Level [...] with the plan. Sincerely, Zoila Villafuerte PA-C [facility] Central Office Operator [address] [place], [place] [id number] , I believe that the risk of significant morbidity and mortality related to the patient's current medical conditions are: intermediate-high. June 25, 2022 * Heir Valdez RN - 06/25/2022 12:28 PM EDT [...] Paralysis of both lower limbs (HCC) Paraplegia ([facility]) Type II or unspecified type diabetes [...] BEADS performed by Gabriel Haile DPM at [facility] OR AL I&D BELOW FASCIA FOOT 1 BURSAL SPACE Right 04/10/2017 RIGHT ANKLE AND RIGHT HEEL DEBRIDEMENT INCISION AND DRAINAGE WITH CULTURES SENT performed by William Jimenez MD at [facility] OR AL OFFICE/OUTPT VISIT,PROCEDURE ONLY Right 06/14/2017 FOOT DEBRIDEMENT INCISION AND DRAINAGE-ANKLE INCLUDING BONE BIOPSY performed by Justin Husseint [facility] OR TOE AMPUTATION Right 12/25/2016 right fifth toe amputation with I&D, ATB beads per Dr. Haile [employer] FILTER PLACEMENT pettigrew filter Allergies Allergen Reactions Vancomycin States had [...] Matias Garcia MD, 5,000 Units at 06/23/22 4708 PE: VSS, Afebrile, NAD, A&O x 3, Aloof Labs: as above RLE ; lateral ankle ; FT+ ulcerative wound , +PTB IMP: stage 4 ankle decubitus, appaarent bone involvement Stable for minor bedside procedure Tx: see procedure notes P: see orders / AVS Yakov Min DPM 06/25/2022 12:28 PM * LAURENT Gomez - 06/25/2022 11:55 AM EDT Occupational Therapy Facility/Department: [facility] Daily Treatment Note NAME: [...] MD 8:05 AM 06/25/2022 * Shelly Mondragon, VICE PRESIDENT OF PRODUCT MARKETING - GANTRY RIGGER - 06/25/2022 7:34 AM EDT Images from [...] labs-Hgb 7.6 today Nutrition status: morbid obesity Sport Shoe Spike Assembler consult initiated Hospital Prophylaxis: DVT: Heparin Stress [...] patient's medical record. [DOES NOT SATISFY [facility] PERFORMANCE] Shelly Mondragon APRN - DOLLY , MARIFER MCCABE-C Hospitalist Medicine 06/25/2022, 7:34 AM Shelly Mondragon APRN-DOLLY Associated attestation - Matias Garcia MD - 06/25/2022 7:34 PM EDT Images from the original note were not included. [address], [address] Attestation Patient: Ganga Evans Alloway Date of Admission: 06/22/2022 4:21 PM Hospital Day # 3 Date of Evaluation: 06/25/2022 I personally evaluated and examined the patient [id number] in conjunction with the PA/TAXONOMIST and agree with the management and dispostition of the patient. Please see the PA/TAXONOMIST's note for full details.My kohli findings are: [...] with the plan as outlined in the TAXONOMIST/PA's note Disposition: Discharge plan is pending Please note that this chart was generated using voice recognition [employer] dictation software. Although every effort was made to ensure the accuracy of this automated security intelligence analyst, some errors in security intelligence analyst may have occurred. Matias Garcia MD [...] Samayoa RN - 06/25/2022 12:52 AM EDT [employer] Product Consultant at bedside at this time to perform [...] Samayoa RN - 06/24/2022 6:43 PM EDT [employer] Product Consultant at bedside at this time to perform [...] 06/24/2022 4:57 PM EDT Physical Therapy Facility/Department: [facility] Daily Treatment Note NAME: [...] Time Out 1643 Minutes 19 Martita Tam VP CORPORATE DEVELOPMENT * Heri Valdez RN - 06/24/2022 4:00 [...] never been a smoker. He saw a docket specialist at [facility] 2 years ago in 2020. At [...] himself. He follows with wound clinic at [facility]. Mr. Stinson also denied any current or [...] Paralysis of both lower limbs (HCC) Paraplegia ([facility]) Type II or unspecified type diabetes [...] BEADS performed by Gabriel Haile DPM at [facility] OR AL I&D BELOW FASCIA FOOT 1 BURSAL SPACE Right 04/10/2017 RIGHT ANKLE AND RIGHT HEEL DEBRIDEMENT INCISION AND DRAINAGE WITH CULTURES SENT performed by William Jimenez MD at [facility] OR AL OFFICE/OUTPT VISIT,PROCEDURE ONLY Right 06/14/2017 FOOT DEBRIDEMENT INCISION AND DRAINAGE-ANKLE INCLUDING BONE BIOPSY performed by Enrique Hussein [facility] OR TOE AMPUTATION Right 12/25/2016 right fifth toe amputation with I&D, ATB beads per Dr. Haile VENA CAVA FILTER PLACEMENT pettigrew filter Social History: Social History Tobacco Use [...] of right heel with fat layer exposed ([facility]) 09/02/2016 Skin ulcer of right 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 ([facility]) 04/25/2015 Decubitus ulcer of coccygeal region 07/19/2013 Cauda equina syndrome ([facility]) 12/09/2011 Open wound of knee, leg (except thigh), and ankle, complicated 02/25/2011 Acute kidney injury superimposed on CKD ([facility]) 06/23/2022 Abnormal EKG 06/23/2022 Neurogenic bladder 06/23/2022 Hyperkalemia 06/22/2022 Osteomyelitis of ankle or foot, right, acute ([facility]) Decubitus ulcer of coccygeal region, stage 4 ([facility]) 04/09/2017 Cellulitis 04/08/2017 Morbid obesity due to excess calories ([facility]) 01/01/2017 Acute on chronic renal failure ([facility]) 12/30/2016 Osteomyelitis of right foot ([facility]) Hypertension Depression PLAN: Abnormal EKG Agree [...] with the plan. Sincerely, Zoila Villafuerte PA-C [facility] Central Office Operator [address] [place], [place] [id number] , I believe that the risk of [...] 06/24/2022 10:32 AM EDT Occupational Therapy Facility/Department: [facility] Daily Treatment Note NAME: aGnga Stinson : 1960 Date of Service: 06/24/2022 [...] Bed Mobility Training: (positioned on side for Doodle to complete ultrasound at end of session) [...] prep on 06/25/2022 6pm KATERINA ATKINS MD [facility] Gastroenterology * Shelly Mondragon, VICE PRESIDENT OF PRODUCT MARKETING - GANTRY RIGGER - 06/24/2022 7:34 AM EDT Images from [...] IRon Monitor labs Nutrition status: morbid obesity Sport Shoe Spike Assembler consult initiated Hospital Prophylaxis: DVT: Heparin Stress Ulcer: na Disposition: Shared decision making: All test results, treatment options and disposition options were discussed with the patient today Social determinants of health that may impact management: none Code status: Full Code Disposition: Discharge plan is home [facility] Advanced Care Planning documentation: [x] [...] patient's medical record. [DOES NOT SATISFY [facility] PERFORMANCE] Shelly Mondragon, VICE PRESIDENT OF PRODUCT MARKETING - GANTRY RIGGER , VICE PRESIDENT OF PRODUCT MARKETING, TAXONOMIST-C Hospitalist Medicine 06/24/2022, 7:34 AM Blood Transfusion [...] from the original note were not included. [address], [address] Attestation Patient: Ganga Stinson Date of Admission: 06/22/2022 4:21 PM Hospital Day # 2 Date of Evaluation: 06/24/2022 I personally evaluated and examined the patient [id number] in conjunction with the PA/TAXONOMIST and agree with the management and dispostition of the patient. Please see the PA/TAXONOMIST's note for full details.My kohli findings are: [...] with the plan as outlined in the TAXONOMIST/PA's note Disposition: Discharge plan is pending, GI, Cardiology, Urology consultations, Transfuse if pRBC <7, wound care to the affected area and monitor electrolytes. Please note that this chart was generated using voice recognition [employer] dictation software. Although every effort was made to ensure the accuracy of this automated security intelligence analyst, some errors in security intelligence analyst may have occurred. Matias Garcia MD 06/24/2022 9:39 PM * Geneva Samayoa RN - 06/24/2022 2:46 AM EDT Spoke with Dr. Garcia and informed him of critical lab levels. No new orders. * Geneva Samayoa RN - 06/24/2022 2:15 AM EDT [employer] Product Consultant at bedside at this time to perform [...] and patient transferred over to [facility]. * Geneva Samayoa RN - 06/23/2022 9:00 PM EDT [employer] Product Consultant at bedside at this time to perform [...] 06/23/2022 4:35 PM EDT Physical Therapy Facility/Department: [facility] Daily Treatment Note NAME: [...] 06/23/2022 4:31 PM EDT Occupational Therapy Facility/Department: [facility] Daily Treatment Note NAME: [...] 06/23/2022 2:08 PM EDT Physical Therapy Facility/Department: [facility] Physical Therapy Initial Assessment [...] Ambulation Assistance: Non-ambulatory Transfer Assistance: Independent Active Medical Delivery Driver: No Additional Comments: Pt. with hx of [...] 06/23/2022 11:26 AM EDT Occupational Therapy Facility/Department: [facility] Occupational Therapy Initial Assessment [...] Ambulation Assistance: Non-ambulatory Transfer Assistance: Independent Active Medical Delivery Driver: No Additional Comments: Pt. with hx of [...] to Severe Extremities (+ 2 pitting BLE) [employer] Strength: Not Performed Nutrition Assessment: Altered nutrition [...] Anthropometric Measures: Height: 5' 11 (180.3 cm) Laurel Body Weight (IBW): 172 lbs (78 kg) [...] Used for Energy Requirements: Current Energy (kcal/day): 2857-4899 (20-23/kg) Weight Used for Protein Requirements: Laurel Protein (g/day): 109-133g (1.4-1.7g/kg) Method Used for [...] Nutrition Supplement [address]A [address], LD Contact: [phone] * Panchito Crockett RN - 06/23/2022 1:00 AM EDT [employer] Product Consultant at bedside for reassessment-see flow sheet for details. Patient remains alert and oriented x4-calm and cooperative. Patient continues to deny pain and discomfort. Incontinence and stewart care provided. Denying any additional needs, call light placed within reach, bed in lowest position and alarm engaged to promote patient safety. Will continue to monitor. * Panchito Crockett RN - 06/23/2022 12:00 AM EDT [employer] Product Consultant attempted to place rowe catheter at this time- unable to advance 16 FR catheter. Rn Hole Digger Truck Driver notified and will attempt- will continue to monitor. Patient reports no pain or discomfort. * Panchito Crockett RN - 06/22/2022 11:12 PM EDT [employer] Product Consultant phoned Dr. Garcia at this informing physician [...] Will continue to monitor. documented [facility] [employer] Work Phone: [phone]) 387-850203-31-2023 Hospital Discharge instructions* Discharge Instructions* Fabby Felder [...] at most local grocery stores, pharmacies, and [place]. If you have any questions about your diet or nutrition, call the hospital and ask for the dietitian. Regular documented in this encounterB[facility] [employer] Phone: 1(588) 165-189403-07-2023 Progress note Author Cathy Brar [facility] June 02, 2022 12:14pmNote Date/TimeMar2022 12:14pmD [place] [address] Wound Center Provider Note Signed Patient: Ganga Stinson MR#: [id number] : 1960 Acct:[id number] Age/Sex: 61 / M Copies to: MD Fidel Whitmore MD~ HPI Date of Visit Date of Visit: Date of Service: 06/02/2022 Time of Service: 12:01 Narrative HPI: Patient is being followed for his chronic bilateral ischial, sacral and right foot ulcers. His wifeis doing his dressing changes. Patient has been having some right hip pain and underwent a CT scan in [place] on 03/14/2022. Thisshowed slight deepening of the [...] Denies fever(s) Integumentary/Breasts Skin/Breast: Reports wounds [facility] Medical History (Updated 06/02/22 @ 12:13 [...] Sacrum: Bed Appearance: Beefy Red, Bone Palpable, [place] and Yellow Percent of Wound Bed Granulated/Red: 90 Percent of Devitalized: 10 Length (cm): 3.5 Width (cm): 1.8 Depth (cm): 2 CM Sq: 6.300 Undermining Position: 360 Undermining Depth: 3 Surrounding Tissue Appearance: [place] Surrounding Tissue Temp: Warm Drainage Amount: Large Drainage Description: Serosanguineous Drainage Odor: No Odor Left Ischium: Bed Appearance: Beefy Red, Bone Palpable, [place] and Yellow Percent of Wound Bed Granulated/Red: 90 Percent of Devitalized: 10 Length (cm): 7 Width (cm): 6 Depth (cm): 5.5 CM Sq: 42.000 Surrounding Tissue Appearance: [place] Surrounding Tissue Temp: Warm Drainage Amount: Large Drainage Description: Serosanguineous Drainage Odor: No Odor Right Ischium: Bed Appearance: Beefy Red, Bone Palpable, [place] and Yellow Percent of Wound Bed Granulated/Red: 90 Percent of Devitalized: 10 Length (cm): 0.7 Width (cm): 1 Depth (cm): 4 CM Sq: 0.700 Surrounding Tissue Appearance: [place] Surrounding Tissue Temp: Warm Drainage Amount: Moderate Drainage Description: Serosanguineous Drainage Odor: No Odor Left Ankle: Bed Appearance: Brown, [place] and Yellow Percent of Wound Bed Granulated/Red: 5 Percent of Devitalized: 95 Length (cm): 3.5 Width (cm): 2.5 Depth (cm): 0.1 CM Sq: 8.750 Surrounding Tissue Appearance: [place] Surrounding Tissue Temp: Warm Drainage Amount: Moderate Drainage Description: Serosanguineous Drainage Odor: No Odor Medial Ankle: Bed Appearance: Brown, [place] and Yellow Percent of Wound Bed Granulated/Red: 50 Percent of Devitalized: 50 Length (cm): 3.5 Width (cm): 4 Depth (cm): 0.1 CM Sq: 14.000 Surrounding Tissue Appearance: [place] Surrounding Tissue Temp: Warm Drainage Amount: Moderate Drainage Description: Serosanguineous Drainage Odor: No Odor Medial Foot: Bed Appearance: Black Dry, Brown, [place] and Hardware Percent of Wound Bed Granulated/Red: 5 Percent of Devitalized: 95 Length (cm): 2 Width (cm): 1.2 Depth (cm): 0.1 CM Sq: 2.400 Surrounding Tissue Appearance: [place] Surrounding Tissue Temp: Warm Drainage Amount: Moderate [...] Diabetes mellitus ferry terminal agent insulin use:with chcf use Diabetes mellitus complication status: with skin [...] signed by MD Cathy Brar> 06/02/22 1214 [facility] Work Phone: 1(245) 251-401712-06-2022 Progress note Author Cathy Brar [facility] March 03, 2022 12:06pmNote Date/TimeDece2021 12:06pmD [place] [address] Wound Center Provider Note Signed Patient: Ganga Stinson MR#: [id number] : 1960 Acct:[id number] Age/Sex: 61 / M Copies to: MD [...] Ischium: Bed Appearance: Beefy Red, Bone Palpable, [place] and Yellow Percent of Wound Bed Granulated/Red: [...] Bed Appearance: Beefy Red, Bone Palpable, Devitalized, [place], Yellow and Rolled Edges Percent of Wound Bed Granulated/Red: 50 Percent of Devitalized: 50 Length (cm): 0.7 Width (cm): 0.8 Depth (cm): 4.0 CM Sq: 0.560 Undermining Position: 0 Undermining Depth: 0 Surrounding Tissue Appearance: Macerated and Rolled Edges Surrounding Tissue Temp: Warm Drainage Amount: Moderate Drainage Description: Serosanguineous Drainage Odor: No Odor Lidocaine Applied Topically: 2% Jelly Right Buttock: Bed Appearance: Devitalized, [place] and Yellow Percent of Wound Bed Granulated/Red: 100 Percent of Devitalized: 0 Length (cm): 0 Width (cm): 0 Depth (cm): 0 CM Sq: 0.000 Surrounding Tissue Appearance: Hyperpigmented Surrounding Tissue Temp: Warm Drainage Amount: None Drainage Description: Serosanguineous Drainage Odor: No Odor Lidocaine Applied Topically: 2% Jelly Right Lower Medial Leg: Bed Appearance: [place] and Yellow Percent of Wound Bed Granulated/Red: [...] Diabetes mellitus type: type 2 Diabetes mellitus chcf insulin use:with ferry terminal agent use Diabetes mellitus complication status: with skin complications Diabetes mellitus complication detail: with other skin ulcer Qualified Code(s): E11.622 - Type 2 diabetes mellitus with other skin ulcer; Z79.4 - ferry terminal agent (current) use of insulin Code(s): E11.9 - [...] signed by MD Cathy Brar> 03/03/22 1206 [facility] Work Phone: [phone] 784-154812-02-2022 NotePROCEDURE: XR HIP RT 2 3V W [...] no acute fracture Electronically authenticated by: KHADAR EMDINA Date: 2022-02-27 07:17[facility]11-01-2022 Progress note Author Cathy Brar [facility] January 27, 2022 12:11pmNote Date/TimeNov2021 12:11pmD [place] [address] Wound Center Provider Note Signed Patient: Ganga Stinson MR#: [id number] : 1960 Acct:[id number] Age/Sex: 61 / M Copies to: MD [...] 360 Undermining Depth: 3.5 Surrounding Tissue Appearance: [place] and Rolled Edges Surrounding Tissue Temp: Warm Drainage Amount: Large Drainage Description: Serosanguineous Drainage Odor: No Odor Lidocaine Applied Topically: 2% Jelly Right Heel: Bed Appearance: Beefy Red, [place] and Yellow Percent of Wound Bed Granulated/Red: 50 Percent of Devitalized: 50 Length (cm): 1.0 Width (cm): 1.4 Depth (cm): 0.1 CM Sq: 1.400 Surrounding Tissue Appearance: Peeling and Dryness Surrounding Tissue Temp: Warm Drainage Amount: Small Drainage Description: Serosanguineous Drainage Odor: No Odor Lidocaine Applied Topically: 2% Jelly Right Ischium: Bed Appearance: Beefy Red, Bone Palpable, [place] and Yellow Percent of Wound Bed Granulated/Red: [...] Bed Appearance: Beefy Red, Bone Palpable, Devitalized, [place], Yellow and Rolled Edges Percent of Wound Bed Granulated/Red: 50 Percent of Devitalized: 50 Length (cm): 1.5 Width (cm): 1.0 Depth (cm): 4.0 CM Sq: 1.500 Undermining Position: 10-3:00 Undermining Depth: 3.5 Surrounding Tissue Appearance: Macerated and Rolled Edges Surrounding Tissue Temp: Warm Drainage Amount: Moderate Drainage Description: Serosanguineous Drainage Odor: No Odor Lidocaine Applied Topically: 2% Jelly Right Buttock: Bed Appearance: Devitalized, [place] and Yellow Percent of Wound Bed Granulated/Red: 100 Percent of Devitalized: 0 Length (cm): 0 Width (cm): 0 Depth (cm): 0 CM Sq: 0.000 Surrounding Tissue Appearance: [place] Surrounding Tissue Temp: Warm Drainage Amount: None Drainage Description: Serosanguineous Drainage Odor: No Odor Lidocaine Applied Topically: 2% Jelly Right Lower Medial Leg: Bed Appearance: [place] and Yellow Percent of Wound Bed Granulated/Red: [...] Diabetes mellitus type: type 2 Diabetes mellitus chcf insulin use:with ferry terminal agent use Diabetes mellitus complication status: with skin complications Diabetes mellitus complication detail: with other skin ulcer Qualified Code(s): E11.622 - Type 2 diabetes mellitus with other skin ulcer; Z79.4 - ferry terminal agent (current) use of insulin Code(s): E11.9 - [...] signed by MD Cathy Brar> 01/27/22 1211 [facility] Work Phone: 1(630) 767-407409-27-2022 Progress note Author Cathy Brar [facility] December 23, 2021 12:32pmNote Date/TimeSeptember 2021 12:32[place]D [place] [address] Wound Center Provider Note Signed Patient: Ganga Stinson MR#: [id number] : 1960 Acct:[id number] Age/Sex: 61 / M Copies to: MD [...] Bed Appearance: Beefy Red, Bone Palpable, Devitalized, [place] and Yellow Percent of Wound Bed Granulated/Red: 95 Percent of Devitalized: 5 Length (cm): 3.2 Width (cm): 2 Depth (cm): 2.5 CM Sq: 6.400 Undermining Position: 10-4:00 Undermining Depth: 5 Surrounding Tissue Appearance: [place] and Macerated Surrounding Tissue Temp: Warm Drainage Amount: Large Drainage Description: Serosanguineous Drainage Odor: No Odor Lidocaine Applied Topically: 2% Jelly Right Heel: Bed Appearance: Beefy Red, Devitalized, Epithelial Tissue or Bridge, [place] and Yellow Percent of Wound Bed Granulated/Red: 90 Percent of Devitalized: 10 Length (cm): 3 Width (cm): 8 Depth (cm): 0.1 CM Sq: 24.000 Surrounding Tissue Appearance: Peeling and Dryness Surrounding Tissue Temp: Warm Drainage Amount: Large Drainage Description: Serosanguineous Drainage Odor: No Odor Lidocaine Applied Topically: 2% Jelly Right Ischium: Bed Appearance: Beefy Red, Bone Palpable, Devitalized, Epithelial Tissue or Bridge, [place] and Yellow Percent of Wound Bed Granulated/Red: 95 Percent of Devitalized: 5 Length (cm): 5 Width (cm): 5 Depth (cm): 5 CM Sq: 25.000 Undermining Position: 12-6:00 Undermining Depth: 1 Surrounding Tissue Appearance: Macerated Surrounding Tissue Temp: Warm Drainage Amount: Large Drainage Description: Serosanguineous Drainage Odor: No Odor Lidocaine Applied Topically: 2% Jelly Left Ischium: Bed Appearance: Beefy Red, Bone Palpable, Devitalized, [place] and Yellow Percent of Wound Bed Granulated/Red: 95 Percent of Devitalized: 5 Length (cm): 1.6 Width (cm): 1.6 Depth (cm): 3.5 CM Sq: 2.560 Undermining Position: 10-3:00 Undermining Depth: 3.5 Surrounding Tissue Appearance: Macerated Surrounding Tissue Temp: Warm Drainage Amount: Moderate Drainage Description: Serosanguineous Drainage Odor: No Odor Lidocaine Applied Topically: 2% Jelly Right Buttock: Bed Appearance: Devitalized, [place] and Yellow Percent of Wound Bed Granulated/Red: 95 Percent of Devitalized: 5 Length (cm): 1.5 Width (cm): 0.5 Depth (cm): 0.1 CM Sq: 0.750 Surrounding Tissue Appearance: [place] and Callous Surrounding Tissue Temp: Warm Drainage Amount: Small Drainage Description: Serosanguineous Drainage Odor: No Odor Lidocaine Applied Topically: 2% Jelly Right Lower Lateral Leg: Bed Appearance: Beefy Red, Devitalized, [place] and Yellow Percent of Wound Bed Granulated/Red: 10 Percent of Devitalized: 90 Length (cm): 0 Width (cm): 0 Depth (cm): 0 CM Sq: 0.000 Surrounding Tissue Appearance: Hyperpigmented Surrounding Tissue Temp: Warm Drainage Amount: None Drainage Description: Serosanguineous Drainage Odor: No Odor Lidocaine Applied Topically: 2% Jelly Right Lower Medial Leg: Bed Appearance: Devitalized, Epithelial Tissue or Bridge, [place] and Yellow Percent of Wound Bed Granulated/Red: [...] Diabetes mellitus ferry terminal agent insulin use:with chcf use Diabetes mellitus complication status: with skin complications Diabetes mellitus complication detail: with other skin ulcer Qualified Code(s): E11.622 - Type 2 diabetes mellitus with other skin ulcer; Z79.4 - ferry terminal agent (current) use of insulin Code(s): E11.9 - [...] signed by MD Cathy Brar> 12/23/21 1232 [facility] Work Phone: [phone]) 985-972908-23-2022 Progress note Author Cathy Brar [facility] November 18, 2021 11:55amNote Date/TimeAugust 2021 11:55[place] [address] Wound Center Provider Note Signed Patient: Ganga Stinson MR#: [id number] : 1960 Acct:[id number] Age/Sex: 61 / M Copies to: MD [...] Bed Appearance: Beefy Red, Bone Palpable, Devitalized, [place] and Yellow Percent of Wound Bed Granulated/Red: 75 Percent of Devitalized: 25 Length (cm): 3.5 Width (cm): 2.0 Depth (cm): 2.5 CM Sq: 7.000 Undermining Position: 360 (deepest at 3) Undermining Depth: 3.5 Surrounding Tissue Appearance: Hyperpigmented Surrounding Tissue Temp: Warm Drainage Amount: Large Drainage Description: Serosanguineous Drainage Odor: No Odor Lidocaine Applied Topically: 2% Jelly Right Heel: Bed Appearance: Devitalized, [place] and Yellow Percent of Wound Bed Granulated/Red: 1 Percent of Devitalized: 99 Length (cm): 1.6 Width (cm): 2.3 Depth (cm): 0.1 CM Sq: 3.680 Surrounding Tissue Appearance: Hyperpigmented Surrounding Tissue Temp: Warm Drainage Amount: Large Drainage Description: Serosanguineous Drainage Odor: No Odor Lidocaine Applied Topically: 2% Jelly Right Ischium: Bed Appearance: Beefy Red, Bone Palpable, Devitalized, Epithelial Tissue or Bridge, [place] and Yellow Percent of Wound Bed Granulated/Red: [...] Bed Appearance: Beefy Red, Bone Palpable, Devitalized, [place] and Yellow Percent of Wound Bed Granulated/Red: 90 Percent of Devitalized: 10 Length (cm): 2.0 Width (cm): 2.0 Depth (cm): 3.5 CM Sq: 4.000 Undermining Position: 9-11:00 Undermining Depth: 4.0 Surrounding Tissue Appearance: Hyperpigmented Surrounding Tissue Temp: Warm Drainage Amount: Moderate Drainage Description: Serosanguineous Drainage Odor: No Odor Lidocaine Applied Topically: 2% Jelly Right Buttock: Bed Appearance: Beefy Red, Devitalized, [place] and Yellow Percent of Wound Bed Granulated/Red: 95 Percent of Devitalized: 5 Length (cm): 2.4 Width (cm): 1.0 Depth (cm): 0.1 CM Sq: 2.400 Surrounding Tissue Appearance: Hyperpigmented Surrounding Tissue Temp: Warm Drainage Amount: Moderate Drainage Description: Serosanguineous Drainage Odor: No Odor Lidocaine Applied Topically: 2% Jelly Right Lower Lateral Leg: Bed Appearance: Beefy Red, Devitalized, [place] and Yellow Percent of Wound Bed Granulated/Red: 10 Percent of Devitalized: 90 Length (cm): 1.3 Width (cm): 1.4 Depth (cm): 0.1 CM Sq: 1.820 Surrounding Tissue Appearance: Hyperpigmented Surrounding Tissue Temp: Warm Drainage Amount: Moderate Drainage Description: Serosanguineous Drainage Odor: No Odor Lidocaine Applied Topically: 2% Jelly Right Lower Medial Leg: Bed Appearance: Black Dry, Devitalized, Epithelial Tissue or Bridge, [place] and Yellow Percent of Wound Bed Granulated/Red: [...] mellitus with other skin ulcer; Z79.4 - ferry terminal agent (current) use of insulin Code(s): E11.9 - [...] signed by MD Cathy Brar> 11/18/21 1155 [facility] Work Phone: [phone] Progress note Author Cathy Brar [facility] October 21, 2021 11:44amNote Date/TimeJuly 2021 11:44[place] [address] Wound Center Provider Note Signed Patient: Ganga Stinson MR#: [id number] : 1960 Acct:[id number] Age/Sex: 61 / M Copies to: MD [...] Bed Appearance: Beefy Red, Bone Palpable, Devitalized, [place] and Yellow Percent of Wound Bed Granulated/Red: 75 Percent of Devitalized: 25 Length (cm): 4.2 Width (cm): 3.0 Depth (cm): 3.0 CM Sq: 12.600 Undermining Position: 360 (deepest at 3) Undermining Depth: 3.5 Surrounding Tissue Appearance: Hyperpigmented Surrounding Tissue Temp: Warm Drainage Amount: Large Drainage Description: Serosanguineous Drainage Odor: No Odor Lidocaine Applied Topically: 2% Jelly Right Heel: Bed Appearance: Devitalized, [place] and Yellow Percent of Wound Bed Granulated/Red: 50 Percent of Devitalized: 50 Length (cm): 2.3 Width (cm): 3.2 Depth (cm): 0.1 CM Sq: 7.360 Surrounding Tissue Appearance: Hyperpigmented Surrounding Tissue Temp: Warm Drainage Amount: Large Drainage Description: Serosanguineous Drainage Odor: No Odor Lidocaine Applied Topically: 2% Jelly Right Ischium: Bed Appearance: Beefy Red, Bone Palpable, Devitalized, Epithelial Tissue or Bridge, [place] and Yellow Percent of Wound Bed Granulated/Red: [...] Bed Appearance: Beefy Red, Bone Palpable, Devitalized, [place] and Yellow Percent of Wound Bed Granulated/Red: 90 Percent of Devitalized: 10 Length (cm): 3.0 Width (cm): 1.6 Depth (cm): 4.5 CM Sq: 4.800 Undermining Position: 9-11:00 Undermining Depth: 1.0 Surrounding Tissue Appearance: Hyperpigmented Surrounding Tissue Temp: Warm Drainage Amount: Moderate Drainage Description: Serosanguineous Drainage Odor: No Odor Lidocaine Applied Topically: 2% Jelly Right Buttock: Bed Appearance: Beefy Red, Devitalized, [place] and Yellow Percent of Wound Bed Granulated/Red: 80 Percent of Devitalized: 20 Length (cm): 2.2 Width (cm): 1.1 Depth (cm): 0.1 CM Sq: 2.420 Surrounding Tissue Appearance: Hyperpigmented Surrounding Tissue Temp: Warm Drainage Amount: Moderate Drainage Description: Serosanguineous Drainage Odor: No Odor Lidocaine Applied Topically: 2% Jelly Right Lower Lateral Leg: Bed Appearance: Beefy Red, Devitalized, [place] and Yellow Percent of Wound Bed Granulated/Red: 10 Percent of Devitalized: 90 Length (cm): 1.3 Width (cm): 1.4 Depth (cm): 0.1 CM Sq: 1.820 Surrounding Tissue Appearance: Hyperpigmented Surrounding Tissue Temp: Warm Drainage Amount: Moderate Drainage Description: Serosanguineous Drainage Odor: No Odor Lidocaine Applied Topically: 2% Jelly Right Lower Medial Leg: Bed Appearance: Black Dry, Devitalized, [place] and Yellow Percent of Wound Bed Granulated/Red: 80 Percent of Devitalized: 20 Length (cm): 1.6 Width (cm): 2.5 Depth (cm): 0.1 CM Sq: 4.000 Surrounding Tissue Appearance: Hyperpigmented Surrounding Tissue Temp: Warm Drainage Amount: Moderate Drainage Description: Serosanguineous Drainage Odor: No Odor Lidocaine Applied Topically: 2% Jelly Right Foot: Bed Appearance: Beefy Red, Devitalized, Epithelial Tissue or Bridge, [place] and Yellow Percent of Wound Bed Granulated/Red: [...] Diabetes mellitus ferry terminal agent insulin use:with chcf use Diabetes mellitus complication status: with skin complications Diabetes mellitus complication detail: with other skin ulcer Qualified Code(s): E11.622 - Type 2 diabetes mellitus with other skin ulcer; Z79.4 - ferry terminal agent (current) use of insulin Code(s): E11.9 - [...] signed by MD Cathy Brar> 10/21/21 1144 [facility] Work Phone: 1([phone]) 484-433206-21-2022 Progress note Author Cathy Brar [facility] September 16, 2021 11:55amNote Date/TimeJune 2021 11:51[place] [address] Wound Center Provider Note Signed Patient: Ganga Stinson MR#: [id number] : 1960 Acct:[id number] Age/Sex: 61 / M Copies to: MD [...] PRN 7 Days #28 tab 09/04/21 [Rx Utptlcwcg60/21/22] Allergies vancomycin Allergy (Severe, Verified 09/04/21 09:28) Shut kidneys down Wound/Ulcer Sacrum: Bed Appearance: Bone Palpable, Devitalized, [place] and Yellow Percent of Wound Bed Granulated/Red: [...] Heel: Bed Appearance: Black Moist, Brown, Devitalized, [place] and Yellow Percent of Wound Bed Granulated/Red: 95 Percent of Devitalized: 5 Length (cm): 3.4 Width (cm): 5.1 Depth (cm): 0.1 CM Sq: 17.340 Surrounding Tissue Appearance: Hyperpigmented Surrounding Tissue Temp: Warm Drainage Amount: Large Drainage Description: Serosanguineous Drainage Odor: No Odor Lidocaine Applied Topically: 2% Jelly Right Ischium: Bed Appearance: Beefy Red, Devitalized, Epithelial Tissue or Bridge, [place] and Yellow Percent of Wound Bed Granulated/Red: 90 Percent of Devitalized: 10 Length (cm): 5.1 Width (cm): 5.5 Depth (cm): 4 CM Sq: 28.050 Undermining Position: 1-3:00 Undermining Depth: 1.5 Surrounding Tissue Appearance: Hyperpigmented Surrounding Tissue Temp: Warm Drainage Amount: Large Drainage Description: Serosanguineous Drainage Odor: No Odor Lidocaine Applied Topically: 2% Jelly Left Ischium: Bed Appearance: Beefy Red, Bone Palpable, Devitalized, [place] and Yellow Percent of Wound Bed Granulated/Red: 90 Percent of Devitalized: 10 Length (cm): 3.9 Width (cm): 1.8 Depth (cm): 5 CM Sq: 7.020 Undermining Position: 9-11:00 Undermining Depth: 2.2 Surrounding Tissue Appearance: Hyperpigmented Surrounding Tissue Temp: Warm Drainage Amount: Moderate Drainage Description: Serosanguineous Drainage Odor: No Odor Lidocaine Applied Topically: 2% Jelly Right Buttock: Bed Appearance: Beefy Red, Devitalized, [place] and Yellow Percent of Wound Bed Granulated/Red: 99 Percent of Devitalized: 1 Length (cm): 2.3 Width (cm): 0.9 Depth (cm): 0.2 CM Sq: 2.070 Surrounding Tissue Appearance: Hyperpigmented Surrounding Tissue Temp: Warm Drainage Amount: Moderate Drainage Description: Serosanguineous Drainage Odor: No Odor Lidocaine Applied Topically: 2% Jelly Right Lower Lateral Leg: Bed Appearance: Beefy Red, Devitalized, [place] and Yellow Percent of Wound Bed Granulated/Red: 20 Percent of Devitalized: 80 Length (cm): 3.8 Width (cm): 2.3 Depth (cm): 0.1 CM Sq: 8.740 Surrounding Tissue Appearance: Hyperpigmented Surrounding Tissue Temp: Warm Drainage Amount: Moderate Drainage Description: Serosanguineous Drainage Odor: No Odor Lidocaine Applied Topically: 2% Jelly Right Lower Medial Leg: Bed Appearance: Black Dry, Devitalized, [place] and Yellow Percent of Wound Bed Granulated/Red: 75 Percent of Devitalized: 25 Length (cm): 2.5 Width (cm): 2.7 Depth (cm): 0.2 CM Sq: 6.750 Surrounding Tissue Appearance: Hyperpigmented Surrounding Tissue Temp: Warm Drainage Amount: Moderate Drainage Description: Serosanguineous Drainage Odor: No Odor Lidocaine Applied Topically: 2% Jelly Right Foot: Bed Appearance: Beefy Red, Devitalized, Epithelial Tissue or Bridge, [place] and Yellow Percent of Wound Bed Granulated/Red: [...] Diabetes mellitus type: type 2 Diabetes mellitus chcf insulin use:with chcf use Diabetes mellitus complication status: with skin [...] signed by MD Cathy Brar> 09/16/21 1155 [facility] Work Phone: 1(926) 468-579405-03-2022 Progress note Author Cathy Brar [facility] July 29, 2021 12:33pmNote Date/TimeMay 2021 12:33[place]D [place] [address] Wound Center Provider Note Signed Patient: Ganga Stinson MR#: [id number] : 1960 Acct:[id number] Age/Sex: 61 / M Copies to: MD [...] down Wound/Ulcer Sacrum: Bed Appearance: Bone Palpable, [place] and Yellow Percent of Wound Bed Granulated/Red: 50 Percent of Devitalized: 50 Length (cm): 2.6 Width (cm): 2.0 Depth (cm): 3.0 CM Sq: 5.200 Undermining Position: 9-4 (deepest at 4) Undermining Depth: 5.4 Surrounding Tissue Appearance: Hyperpigmented Surrounding Tissue Temp: Warm Drainage Amount: Large Drainage Description: Serosanguineous Drainage Odor: No Odor Lidocaine Applied Topically: 2% Jelly Right Heel: Bed Appearance: Black Moist, Brown, [place] and Yellow Percent of Wound Bed Granulated/Red: 15 Percent of Devitalized: 85 Length (cm): 6.0 Width (cm): 9.0 Depth (cm): 0.5 CM Sq: 54.000 Surrounding Tissue Appearance: Hyperpigmented Surrounding Tissue Temp: Warm Drainage Amount: Large Drainage Description: Serosanguineous Drainage Odor: No Odor Lidocaine Applied Topically: 2% Jelly Right Ischium: Bed Appearance: Beefy Red, Epithelial Tissue or Bridge, [place] and Yellow Percent of Wound Bed Granulated/Red: 50 Percent of Devitalized: 50 Length (cm): 9.3 Width (cm): 7.9 Depth (cm): 5.2 CM Sq: 73.470 Undermining Position: 360 (deepest at 7) Undermining Depth: 2.3 Surrounding Tissue Appearance: Hyperpigmented Surrounding Tissue Temp: Warm Drainage Amount: Large Drainage Description: Serosanguineous Drainage Odor: No Odor Lidocaine Applied Topically: 2% Jelly Left Ischium: Bed Appearance: [place] and Yellow Percent of Wound Bed Granulated/Red: 50 Percent of Devitalized: 50 Length (cm): 1.7 Width (cm): 1.5 Depth (cm): 3.5 CM Sq: 2.550 Undermining Position: 3-8 Undermining Depth: 4.5 Surrounding Tissue Appearance: Hyperpigmented Surrounding Tissue Temp: Warm Drainage Amount: Moderate Drainage Description: Serosanguineous Drainage Odor: No Odor Lidocaine Applied Topically: 2% Jelly Right Buttock: Bed Appearance: Beefy Red, [place] and Yellow Percent of Wound Bed Granulated/Red: 75 Percent of Devitalized: 25 Length (cm): 6.6 Width (cm): 2.0 Depth (cm): 0.1 CM Sq: 13.200 Surrounding Tissue Appearance: Hyperpigmented Surrounding Tissue Temp: Warm Drainage Amount: Moderate Drainage Description: Serosanguineous Drainage Odor: No Odor Lidocaine Applied Topically: 2% Jelly Right Lower Lateral Leg: Bed Appearance: Beefy Red, [place] and Yellow Percent of Wound Bed Granulated/Red: 50 Percent of Devitalized: 50 Length (cm): 1.8 Width (cm): 1.5 Depth (cm): 0.1 CM Sq: 2.700 Surrounding Tissue Appearance: Hyperpigmented Surrounding Tissue Temp: Warm Drainage Amount: Moderate Drainage Description: Serosanguineous Drainage Odor: No Odor Lidocaine Applied Topically: 2% Jelly Right Lower Medial Leg: Bed Appearance: Black Dry, [place] and Yellow Percent of Wound Bed Granulated/Red: [...] Diabetes mellitus type: type 2 Diabetes mellitus chcf insulin use:with ferry terminal agent use Diabetes mellitus complication status: with skin complications Diabetes mellitus complication detail: with other skin ulcer Qualified Code(s): E11.622 - Type 2 diabetes mellitus with other skin ulcer; Z79.4 - ferry terminal agent (current) use of insulin Code(s): E11.9 - [...] will attempt to obtain that note from docket specialist in [place]. See Instructions for Orders See Instructions for Orders See Wound Discharge Instructions for Orders: Patient may require serial debridement to remove devitalized tissue and encourage granulation. Dictated By: Cathy Brar MD DD/ [id number] Signed By: <Electronically signed by MD Cathy Brar> 07/29/21 1231 [facility] Work Phone: Evaluation + Plan note No data available for this section [facility] evaluation note* Diagnosis Onset Date Resolution Status Right hip pain acuteStage IV pressure ulcer of sacral regionacuteUnstageable pressure ulcer of right heelacuteCauda equina spinal cord injurychronicDiabeteschronicPressure ulcer of left hip, stage 3resolvedPressure ulcer of right hip, stage 3resolved [facility] Work Phone: Evaluation note* Diagnosis Neurogenic bladder Neurogenic bladder, NOS documented in this encounter [employer] Phone: [email or web address] note* Diagnosis Neurogenic bladder Neurogenic bladder, NOS documented in this encounter [employer] Phone: [email or web address] note* Diagnosis Hyperkalemia- Primary Hyperpotassemia Acute kidney [...] of neurogenic bladder documented in this encounter [employer] Phone: evaluation note* Diagnosis Acute kidney injury (HCC) Acute kidney failure, unspecified Iron deficiency anemia, unspecified iron deficiency anemia type documented in this encounter [employer] Phone: [email or web address] note* Diagnosis Onset Date Resolution Status Pressure injury of left ischium, stage 4 acutePressure injury of right ischium, stage 4acutePressure ulcer of right foot, stage 2acuteRight hip painacuteStage IV pressure ulcer of sacral regionacute Cauda equina spinal cord injurychronicDiabeteschronic [facility] Work Phone: Evaluation note* Diagnosis Cauda equina syndrome (HCC) Cauda equina syndrome without mention of neurogenic bladder Neurogenic bladder Neurogenic bladder, NOS Urinary retention Retention of urine, unspecified Urinary incontinence without sensory awareness Incontinence without sensory awareness [facility] Diagnosis Cellulitis of left foot- Primary Ulcer of left ankle, with necrosis of bone (HCC) ([facility]) Diabetes mellitus due to underlying condition with diabetic polyneuropathy, unspecified whether ferry terminal agent insulin use ([facility]) Acute complete paraplegia ([facility]) Acute osteomyelitis of left fibula ([facility]) Foot ulcer, right, with fat layer exposed ([facility]) Venous insufficiency Unspecified venous (peripheral) insufficiency documented in this encounter [facility] HealthcareEvaluation note* Diagnosis Abscess of toe, right- Primary documented in this encounter [facility] HealthcareEvaluation note* Diagnosis Onset Date Resolution Status [id number] acuteFoot ulcer with fat layer exposedacuteStage IV pressure ulcer of right buttockacuteStage IV pressure ulcer of sacral regionacuteCauda equina spinal cord injurychronicPressure ulcer of left buttock, stage 3chronic [facility] Work Phone: Evaluation note* Diagnosis Type 2 diabetes mellitus with hyperglycemia, without long-term current use of insulin ([facility])- Primary Dyslipidemia ([facility]) Other and unspecified hyperlipidemia Benign hypertension ([facility]) Essential hypertension, benign Major depressive disorder, recurrent episode, mild (HCC) ([facility]) Major depressive disorder, recurrent episode, mild Incontinence overflow, urine Overflow incontinence Chronic superficial 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 Type 2 diabetes mellitus with hyperglycemia, without long-term current use of insulin ([facility])- Primary Benign hypertension ([facility]) Essential hypertension, benign Major depressive disorder, recurrent episode, mild (HCC) ([facility]) Major depressive disorder, recurrent episode, mild Incontinence overflow, urine Overflow incontinence Pruritus Unspecified pruritic disorder Chronic kidney disease, stage 3a (HCC) ([facility]) Encounter for long-term (current) use of medications Encounter for long-term (current) use of other medications Cauda equina syndrome ([facility]/HCC) Cauda equina syndrome without mention of neurogenic bladder Urticaria- Primary Unspecified urticaria documented in this encounter [facility]* Diagnosis Type 2 diabetes mellitus with hyperglycemia, without long-term current use of insulin ([facility])- Primary Dyslipidemia ([facility]) Other and unspecified hyperlipidemia Benign hypertension ([facility]) Essential hypertension, benign Major depressive disorder, recurrent episode, mild (HCC) ([facility]) Major depressive disorder, recurrent episode, mild Incontinence overflow, urine Overflow incontinence Chronic superficial 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 Type 2 diabetes mellitus with hyperglycemia, without long-term current use of insulin ([facility])- Primary Benign hypertension ([facility]) Essential hypertension, benign Major depressive disorder, recurrent episode, mild (HCC) ([facility]) Major depressive disorder, recurrent episode, mild Incontinence overflow, urine Overflow incontinence Pruritus Unspecified pruritic disorder Chronic kidney disease, stage 3a (HCC) ([facility]) Encounter for long-term (current) use of medications Encounter for long-term (current) use of other medications Cauda equina syndrome ([facility]) Cauda equina syndrome without mention of neurogenic bladder Urticaria- Primary Unspecified urticaria Pruritus Unspecified pruritic disorder documented in this encounter [facility]Evaluation [facility]* Diagnosis Type 2 diabetes mellitus with hyperglycemia, without long-term current use of insulin ([facility])- Primary Benign hypertension ([facility]) Essential hypertension, benign Major depressive disorder, recurrent episode, mild (HCC) ([facility]) Major depressive disorder, recurrent episode, mild Incontinence overflow, urine Overflow incontinence Pruritus Unspecified pruritic disorder Chronic kidney disease, stage 3a (HCC) ([facility]) Encounter for long-term (current) use of medications Encounter for long-term (current) use of other medications Cauda equina syndrome ([facility]) Cauda equina syndrome without mention of neurogenic bladder documented in this encounter [facility]* Diagnosis Type 2 diabetes mellitus with hyperglycemia, without long-term current use of insulin ([facility])- Primary Dyslipidemia ([facility]) Other and unspecified hyperlipidemia Benign hypertension ([facility]) Essential hypertension, benign Major depressive disorder, recurrent episode, mild (HCC) ([facility]) Major depressive disorder, recurrent episode, mild Incontinence overflow, urine Overflow incontinence Chronic superficial 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 Type 2 diabetes mellitus with hyperglycemia, without long-term current use of insulin ([facility])- Primary Benign hypertension ([facility]/HCC) Essential hypertension, benign Major depressive disorder, recurrent episode, mild (HCC) ([facility]/HCC) Major depressive disorder, recurrent episode, mild Incontinence overflow, urine Overflow incontinence Pruritus Unspecified pruritic disorder Chronic kidney disease, stage 3a (HCC) ([facility]) Encounter for long-term (current) use of medications Encounter for long-term (current) use of other medications Cauda equina syndrome ([facility]) Cauda equina syndrome without mention of neurogenic bladder Urticaria- Primary Unspecified urticaria Type 2 diabetes mellitus with hyperglycemia, without long-term current use of insulin ([facility])- Primary Benign hypertension ([facility]/HCC) Essential hypertension, benign Major depressive disorder, recurrent episode, mild (HCC) ([facility]) Major depressive disorder, recurrent episode, mild Incontinence overflow, urine Overflow incontinence Chronic superficial 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 Urticaria Unspecified urticaria Pruritus Unspecified pruritic disorder Annual physical exam Routine general medical examination at a health care facility Chronic kidney disease, stage 3a (HCC) ([facility]) Class 2 severe obesity due to excess calories with serious comorbidity and body mass index (BMI) of36.0 to 36.9 in adult ([facility]) Type 2 diabetes mellitus with other specified complication Hyperlipidemia, unspecified ([facility]) Pressure ulcer of right heel, unstageable ([facility]) Type 2 diabetes mellitus with other skin ulcer (CODE) Paraplegia, unspecified Diabetes mellitus due to underlying condition with diabetic polyneuropathy ([facility]) documented in this encounter [facility] HealthcareEvaluation note* Diagnosis Type 2 diabetes mellitus [...] disorder Chronic kidney disease, stage 3a ([facility]) Encounter for long-term (current) use of [...] exam Routine general medical examination at a [facility] Chronic kidney disease, stage 3a ([facility]) Class 2 severe obesity due to excess calories with serious comorbidity and body mass index (BMI) of36.0 to 36.9 in adult ([facility]) Type 2 diabetes mellitus with other specified complication ([facility]) Hyperlipidemia, unspecified Pressure ulcer of right heel, unstageable ([facility]) Type 2 diabetes mellitus with other skin ulcer (CODE) ([facility]) Paraplegia, unspecified ([facility]) Diabetes mellitus due to underlying condition with diabetic polyneuropathy ([facility]) Type 2 diabetes mellitus with hyperglycemia, without long-term current use of insulin ([facility]) documented in this encounter [facility] HealthcareEvaluation note* Diagnosis Type 2 diabetes mellitus with hyperglycemia, without long-term current use of insulin ([facility])- Primary Dyslipidemia Other and unspecified hyperlipidemia Benign [...] disorder Chronic kidney disease, stage 3a ([facility]) Encounter for long-term (current) use of [...] index (BMI) of36.0 to 36.9 in adult ([facility]) Type 2 diabetes mellitus with other specified complication (HCC) Hyperlipidemia, unspecified Pressure ulcer of right heel, unstageable ([facility]) Type 2 diabetes mellitus with other skin ulcer (CODE) ([facility]) Paraplegia, unspecified ([facility]) Diabetes mellitus due to underlying condition with diabetic polyneuropathy ([facility]) Primary hypertension Unspecified essential hypertension Benign hypertension Essential hypertension, benign Type 2 diabetes mellitus with hyperglycemia, without long-term current use of insulin (HCC) Dyslipidemia Other and unspecified hyperlipidemia [facility] Additional Instructions DISCHARGE INSTRUCTIONS FOR [...] operative site FOLLOW UP Phone numbers: Office [phone] [facility] Work Phone: Hospital Discharge instructions No data available for this section [facility] Hospital Discharge instructions Additional Instructions Wound/Ulcer Instructions/Orders Left Ischium: Dressing: Cleanse with Dakins or saline, saline on 4X4 gauze packing or kerlix, ABD, Kerlix, drawtex, Secure/wrap: Skin prep prior to adhesive [facility] Work Phone: InstructionsNot on filedocumented in this encounter [facility] SystemProgress note No data available for this section [facility] reason for referral (narrative)No reason for referral information availableLake [facility] Work Phone: Summary Purpose Family History No [...] Wound Left Fibula Osteomyelitis, Diabetes, UlcerativeReason for [id number] Foot ulcer with fat layer exposed 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 Cauda equina spinal cord injury Pressure ulcer of left buttock, stage 3 Chief Complaint Open Wound Left Fibula Osteomyelitis, Diabetes, Ulcerative UnknownReason for [id number] Foot ulcer with fat layer exposed Stage [...] EKG 12 Lead Angeles Nagy MD [address], [address] [place] [address] Referral IDStatusReasonStart DateExpiration DateVisits RequestedVisits [id number] Review/[id number] / ProceduresReferred By ContactReferred To ContactRadiology Diagnoses Cauda equina syndrome (HCC) Neurogenic bladder Urinary retention Urinary incontinence without sensory awareness Procedures US RENAL COMPLETE Ashlee Erwin, VICE PRESIDENT OF PRODUCT MARKETING - GANTRY RIGGER [address] [place] [address] Referral IDStatusReasonStart DateExpiration DateVisits RequestedVisits [id number]// Additional Source Comments (unrecognized sect ion and content) No Status Records FoundNo Status Records FoundNo Status Records FoundNo Status Records FoundNo Status Records FoundNo Status Records FoundNo Status Records Found INFORMATION SOURCE (unrecogn ized section and content) DATE CREATED AUTHOR 09/21/2017 [facility] DATE CREATED AUTHOR AUTHOR'S ORGANIZ ATION 04/08/2022 [facility] DATE CREATED AUTHOR AUTHOR'S ORGANIZ ATION 09/27/2022 [facility] DATE CREATED AUTHOR AUTHOR'S ORGANIZ ATION 10/22/2023 [facility] DATE CREATED AUTHOR AUTHOR'S ORGANIZ ATION 08/03/2024 [facility] DATE CREATED AUTHOR AUTHOR'S ORGANIZ ATION 01/17/2025 [facility] DATE CREATED AUTHOR AUTHOR'S ORGANIZ ATION 02/01/2025 [facility] Care Teams (unrecognized sec tion [...] rt: March 14, 2024 End: March 14, 2024[facility] Center[facility]jandra Patrick Care ProviderActiveStart: March 14, [...] DateEnd Date Fidel Abbott MD PCP - [facility] Medicine12/10/22 Fidel Abbott MD [address] [place] [address] PCP - [place] [employer]03/29/23Team MemberRelationshipSpecialtyStart DateEnd Date Fidel Abbott MD PCP - [facility]12/10/22 Fidel Abbott MD [address] [place] [address] PCP - [place] [employer]03/29/23Team MemberRelationshipSpecialtyStart DateEnd Date Fidel Abbott MD [address] [place] [address] PCP - [place] [employer]03/29/23 Fidel Abbott MD [address] [place] [address] PCP - [facility]05/12/23 Team Status: Inactive Member Role [...] DateEnd Date Fidel Abbott MD PCP - Pgmnljx84/2/17Team MemberRelationshipSpecialtyStart DateEnd Date Fidel Abbott MD [address] [place] [address] PCP - [place] Yspmmvlrim77/1/23 Fidel Abbott MD [address] [place] [address] PCP - [facility]11/18/23Team MemberRelationshipSpecialtyStart DateEnd Date Fidel Abbott MD [address] [place] [address] PCP - [place] Upzmpbaonn45/1/23 Fidel Abbott MD [address] [place] [address] PCP - [facility]11/18/23 Team Status: Inactive Member Role Status Dates Fidel Abbott MD Primary Care Provider Active S tart: February 08, 2024 End: February 07Alice Belle ProviderActiveStart: February 08, 2024 End: February 08, 2024 Team Status: Active Member Role Status Dates Cathy Brar MD Attending Provider Active Sta rt: February 08, 2024 [facility] ProviderActiveStart: February 08, 2024 Team MemberRelationshipSpecialtyStart DateEnd Date Fidel Abbott MD [address] [place] [address] PCP - [place] Bvkotjmzzs82/1/23 Fidel Abbott MD [address] [place] [address] PCP - [facility] Medicine11/18/23Team MemberRelationshipSpecialtyStart DateEnd Date Fidel Abbott MD [address] [place] [address] PCP - [place] Bvombgowvr05/1/23 Fidel Abbott MD [address] [place] [address] PCP - [facility]11/18/23Team MemberRelationshipSpecialtyStart DateEnd Date Fidel Abbott MD [address] [place] [address] PCP - [place] Mfwnnkaxtx01/1/23 Fidel Abbott MD [address] [place] [address] PCP - [facility]11/18/23Team MemberRelationshipSpecialtyStart DateEnd Date Fidel Abbott MD PCP - Guydwwz39/2/17Team MemberRelationshipSpecialtyStart DateEnd Date Fidel Abbott MD PCP - Muobjgj26Team MemberRelationshipSpecialtyStart DateEnd Date Fidel Abbott MD [address] [place] [address] PCP - [place] Tknbqanqau33/1/23 Fidel Abbott MD [address] [place] [address] [facility] Fidel Abbott MD [address] [place] [address] PCP - [facility]05/05/24Team MemberRelationshipSpecialtyStart DateEnd Date Fidel Abbott MD [address] [place] [address] PCP - [place] Sdbhkvfwva72/1/23 Fidel Abbott MD [address] [place] [address] [facility]/23 Fidel Abbott MD [address] [place] [address] PCP - [facility]05/05/24Team MemberRelationshipSpecialtyStart DateEnd Date Fidel Abbott MD [address] [place] [address] PCP - [place] Meichwbogb79/1/23 Fidel Abbott MD [address] [place] [address] PCP - [facility]11/18/23 Fidel Abbott MD [address] [place] [address] PCP - [facility]05/05/24Team MemberRelationshipSpecialtyStart DateEnd Date Fidel Abbott MD [address] [place] [address] PCP - [facility]11/18/23 Fidel Abbott MD [address] [place] [address] PCP - [facility]05/05/24 Alvin Gonzalez MA [facility]08/08/24 Team Status: Active Member Role Status Dates Fidel Abbott MD Primary Care Provider Active S tart: August 15, 2024 Cathy Brar MDAttending ProviderActiveStart: August 15, 2024 Team Status: Inactive Member Role Status Dates Fidel Abbott MD Primary Care Provider Active S tart: August 30, 2024 End: August 30, 2024Marichard Navarro MDActiveStart: August 30, 2024 End: August 30, 2024Tami Azul TAXONOMIST-CAtteodoroding ProviderActiveStart: August 30, 2024 End: August 30, 2024Team MemberRelationshipSpecialtyStart DateEnd Date Fidel Abbott MD [address] [place] [address] PCP - [facility] Medicine11/18/23 Team Status: Inactive Member Role Status Dates Fidel Abbott MD Primary Care Provider Active S tart: August 30, 2024 End: August 30, 2024Tami Azul TAXONOMIST-CAttending ProviderActiveStart: August 30, 2024 End: August 30, 2024 Team Status: Inactive Member Role Status Dates Fidel Abbott MD Primary Care Provider Active S tart: October 02, 2024 End: October 02lkim Brar MDAttending ProviderActiveStart: October 02, 2024 End: October 02, 2024Team MemberRelationshipSpecialtyStart DateEnd Date Fidel Abbott MD [address] [place] [address] PCP - [facility] Medicine11/18/23Team MemberRelationshipSpecialtyStart DateEnd Date Fidel Abbott MD [address] [place] [address] PCP - [facility] Medicine11/18/23Team MemberRelationshipSpecialtyStart DateEnd Date Fidel Abbott MD [address] [place] [address] PCP - [facility] Medicine11/18/23Team MemberRelationshipSpecialtyStart DateEnd Date Fidel Abbott MD [address] [place] [address] PCP - [place] Jiomeudlog44/1/234 Fidel Abbott MD [address] [place] [address] PCP - GeneralFamily Medicine11/18/23 Fidel Abbott MD [address] [place] [address] PCP - [facility] Alvin Gonzalez MA [address] [place] [address] Family MedicineTeam MemberRelationshipSpecialtyStart DateEnd Date Fidel Abbott MD [address] [place] [address] PCP - [place] Vwgxjzdlhu52/1/234 Fidel Abbott MD [address] [place] [address] PCP - GeneralFamily Medicine Fidel Abbott MD [address] [place] [address] PCP - GeneralFamily Medicine Fidel Abbott MD [address] [place] [address] PCP - GeneralFamily Medicine11/18/23 Fidel Abbott MD [address] [place] [address] PCP - [facility] Alvin Gonzalez MA [address] [place] [address] [facility]5/// Team Status: Active Member Role/Relationship [...] kidney injury (HCC) Matias Garcia MD [address] [place] [address] [facility] [address] [place] [address] Referral IDStatusReasonStart DateExpiration DateVisits RequestedVisits [id number] / ProceduresReferred By ContactReferred To ContactRadiology Diagnoses Cauda equina syndrome (HCC) Neurogenic bladder Urinary retention Urinary incontinence without sensory awareness Procedures US RENAL COMPLETE Ashlee Erwin, VICE PRESIDENT OF PRODUCT MARKETING - GANTRY RIGGER [address] [place] [address] Referral IDStatusReasonStart DateExpiration DateVisits RequestedVisits [id number]/23/[id number] UlcerReasonOnset MsjqKrgaqwreOnmppgezsjhi92/15/2024ReasonCommentsFollow-upHivesWaist up hives and itchyReasonCommentsMed RefillReasonCommentsFollow-upCheck upItchy from waist up ReasonCommentsFollow-upCheck upReasonOnset DateCommentsMed Vymghl0811/01/2024 Ordered Prescriptions (unrec ognized section and content) [...] Held - Provider: Cammy Kinghold) * 0959 ([facility] Unhold - Provider: Dragan Voss RN) * [...] RN) * 0812 ([facility] Hold - Provider: [facility] [...] (Due - Provider: Linda Ibrahim [facility]) fenofibrate (TRIGLIDE) tablet 160 mg 160 mg, Oral, DAILY, First dose on Wed06/23/22 at 0900, Until Discontinued, Substituted for Fenofibrate (Non-Formulary Dose). * 0907 (Given - Provider: Heri Valdez RN) * 0724 (Given - Provider: Heri Valdez RN) * 0812 (MAR Hold - Provider: Cammy Autohold - Reason: Unreviewed Transfer Orders) * 0900 (Automatically Held - Provider: Cammy Autohold) * 0959 ([facility] Unhold - Provider: Dragan Voss RN) * [...] - Provider: Heri Valdez RN) * 0812 ([facility] Hold - Provider: Cammy Autohold - Reason: Unreviewed Transfer Orders) * 0900 (Automatically Held - Provider: Cammy Autohold) * 0959 ([facility] Unhold - Provider: Dragan Voss RN) * [...] - Reason: IV Fluid Infusing) * 0812 ([facility] Hold - Provider: Cammy Autohold - Reason: Unreviewed Transfer Orders) * 0900 (Automatically Held - Provider: Cammy Autohold) * 0959 ([facility] Unhold - Provider: Dragan Voss RN) * [...] RN) * 0812 (MAR Hold - Provider: [facility] Autohold - Reason: Unreviewed Transfer Orders) * 0900 (Automatically Held - Provider: Cammy Autohold) * 0959 ([facility] Unhold - Provider: Dragan Voss RN) Medication Order06/24/// 0.9 % sodium chloride infusion IntraVENous, at 75 mL/hr, CONTINUOUS, Starting on Wed06/22/22 at 2045 * 0020 (New Bag - Provider: Geneva Samayoa RN) * 0812 (MAR Hold - Provider: [facility] [employer] - Reason: Unreviewed Transfer Orders) * 0959 ([facility] Unhold - Provider: Dragan Voss RN) * [...] into rate field of order. * 0812 ([facility] Hold - Provider: [facility] [employer] - Reason: Unreviewed Transfer Orders) * 0959 ([facility] Unhold - Provider: Dragan Voss RN) 0.9 % sodium chloride infusion IntraVENous, at 240 mL/hr, Administer over 10 Minutes, PRN, blood administration, Starting on Wed06/24/22 at 0733, For 1 dose, For use in priming line prior to transfusion (prime via gravity) and flush line post transfusion ONLY. Discontinue once line has been cleared of remaining blood product. * 0812 ([facility] Hold - Provider: [facility] [employer] - Reason: Unreviewed Transfer Orders) * 0959 ([facility] Unhold - Provider: Dragan Voss RN) acetaminophen (TYLENOL) suppository 650 mg(Linked Group 1) 650 mg, Rectal, EVERY 6 HOURS PRN, Starting on Wed06/22/22 at 2017, Until Discontinued, Pain Mild (1-3), Fever, For temp greater than 100.4 F (38 C), Administer if oral route cannot be used. * 0812 ([facility] Hold - Provider: [facility] [employer] - Reason: Unreviewed Transfer Orders) * 0959 ([facility] Unhold - Provider: Dragan Voss RN) acetaminophen (TYLENOL) tablet 650 mg(Linked Group 1) 650 mg, Oral, EVERY 6 HOURS PRN, Starting on Wed06/22/22 at 2017, Until Discontinued, Pain Mild (1-3), Fever, For temp greater than 100.4 F (38 C), Maximum dose of acetaminophen is 4000 mg from all sources in 24 hours. * 0812 ([facility] Hold - Provider: [facility] [employer] - Reason: Unreviewed Transfer Orders) * 0959 ([facility] Unhold - Provider: Dragan Voss RN) ondansetron (ZOFRAN) injection 4 mg(Linked Group 2) 4 mg, IntraVENous, EVERY 6 HOURS PRN, Starting on Wed06/22/22 at 2017, Until Discontinued, Nausea, Vomiting, Administer if oral route cannot be used. * 0812 ([facility] Hold - Provider: [facility] [employer] - Reason: Unreviewed Transfer Orders) * 0959 ([facility] Unhold - Provider: Dragan Voss RN) ondansetron (ZOFRAN-ODT) disintegrating tablet 4 mg(Linked Group 2) 4 mg, Oral, EVERY 8 HOURS PRN, Starting on Wed06/22/22 at 2017, Until Discontinued, Nausea, Vomiting * 0812 ([facility] Hold - Provider: [facility] [employer] - Reason: Unreviewed Transfer Orders) * 0959 ([facility] Unhold - Provider: Dragan Voss RN) polyethylene glycol (GLYCOLAX) packet 17 g 17 g, Oral, DAILY PRN, Starting on Wed06/22/22 at 2017, Until Discontinued, Constipation, First line therapy for constipation * 0812 ([facility] Hold - Provider: [facility] [employer] - Reason: Unreviewed Transfer Orders) * 0959 ([facility] Unhold - Provider: Dragan Voss RN) sodium chloride flush 0.9 % injection 10 mL 10 mL, IntraVENous, PRN, Starting on Wed06/22/22 at 2017, Until Discontinued, Line Care, After every IV line use * 0812 ([facility] Hold - Provider: [facility] [employer] - Reason: Unreviewed Transfer Orders) * 0959 ([facility] Unhold - Provider: Dragan Voss RN) Order [...] BE BASED ON THE PRIMARY CLINICAL RECORDS. [employer] [facility]. provides no warranty or guarantee of the accuracy or completeness of information in this document.
[2025-02-15 09:45] VITALS: PULSE 89; TEMP 36.2; O2SAT 100
[2025-02-15 12:04] VITALS: BP 124/60; PULSE 76; O2SAT 99
[2025-02-15] MEDS: LIDOCAINE 2% JELLY 10 ML UR (12:05)
[2025-02-15 12:08] VITALS: BP 123/57; PULSE 78; O2SAT 97
--- NOTE | 2025-02-15 12:31 | PC.NURSE ---
20fr coker cath placed at end of procedure
--- NOTE | 2025-02-15 12:36 | P.URON_ITS ---
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 Cystoscopy. 2. Urethral dilation of stricture to 30 Barb[place] with Duarte sounds. Anesthesia: local Primary Surgeon: Jovanny Hoffman Complications: None Estimated blood loss (mL): 5 Findings: Sequential thick strictures from the mid penile urethra to the bulb Specimens: None Drains: 20 [place] Rowe catheter in the bladder Indications for Procedures: This gentleman has a history of significant urethral strictures that have been dilated in the past. The most recent dilation was October 2023 and he was dilated up to 28 Barb[place]. He now presents for cystoscopy and urethral dilation. He has signed an informed consent after risks were explained Detailed description of Procedure: The patient was kept on the rstratford bed and brought into the endoscopy suite. He was in the supine position. Genitalia were sterilely prepped and draped in the usual fashion. 2% lidocaine gel was passed per urethra. Timeout was done by all parties in the room. I started by passing a flexible cystoscope per urethra and into the bladder. There were sequential strictures from the mid penile ur ethra to the bulb. These were indurated and sequentially worse as we arrived at the bulb. The scope would barely fit through them. Prostatic urethra was with hypertrophy. Panendoscopy in the bladder showed cystitis cystica lesions diffusely on the floor. There were some cystitis follicularis lesions along the area of the right hemitrigone along with some bullous edema. On retroflex no new findings were noted. A guidewire was passed through the scope into the bladder and the scope was removed. Duarte sounds were used to dilate him up to 30 Barb[place]. The scope was repassed into the urethra and he was now wide open. The scope was removed. A 20 [place] Rowe catheter was passed into the bladder. It was irrigated to clear. 10 cc of fluid was placed in the balloon. He was then discharged to home with a prescription for Macrobid 100 mg twice daily #60. Catheter will get removed tomorrow.
--- NOTE | 2025-02-15 12:44 | PC.NURSE ---
Emptied 600 cc of dark yellow urine from coker leg bag. Reviewed overnight bag use and how to change with and patient.
== END 2025-02-15 12:55 | disposition home or self-care (01) ==
LOC: SURGOUT 09:17
PROVIDERS: PCP Family Medicine; Visit Provider Urology
PROC: (CPT 52281; principal; 2025-02-15 09:45)
DX: N35.919 Unspecified urethral stricture, male, unspecified site (principal); N30.80 Other cystitis without hematuria; N31.9 Neuromuscular dysfunction of bladder, unspecified; E11.9 Type 2 diabetes mellitus without complications; D64.9 Anemia, unspecified; I10 Essential (primary) hypertension; G47.30 Sleep apnea, unspecified; G82.20 Paraplegia, unspecified; Z79.84 Long term (current) use of oral hypoglycemic drugs
CPT/HCPCS: 52281

== ENCOUNTER 2025-03-04 19:04 | Emergency (ER) | payer BC, MEDICARE, SELFPAY ==
--- OUTSIDE RECORDS SUMMARY | 2024-05-11 08:15 | XMS_ITS ---
Author Organization The [facility] in [place] Address [address] [place] [address] Care Team Providers Care Distresser Name Role Phone Fidel Reis MD Primary Care Provider Unavailab Nina Modi Unavailable [phone] REASON FOR VISIT MD Encounters Encounter Location Date Provider Diagnosis [facility] Oncology [address] [place] [address] 05/11/2024 Nina Rodas Plan Of Treatment Next Appt Details Provider Name:NINA RIVER , 03/13/2025 10:30:00 AM, [address] [place], [address], Progress Notes * Ganga MIRANDA LDOB:1960 (64 yo M)Acc No.[id number]:05/11/2024 UNLOCKED PROGRESS NOTE Progress Notes Patient: Geoff CERVANTESGanga :?Nina River M.D.:1960???Age:63 Y ???Sex:MaleDate:05/11/2024Phone:[phone]:[address] [place], [place]Pcp:Fidel Reis MD Subjective: * Chief Complaints: * 1 . MD. * Medical History: Objective: * Vitals: Assessment: Plan: * Treatment: * * Electronic signature of Nina Rodas MD, [id number] on 03/04/2025 at 08:19 PM ESTSign off status: PendingVisit Status:?CANC (Cancelled) * Provider: Geoff River M.D. Date: 0 05/11/2024 Generated for Printing/Faxing/eTransmitting on:?03/04/2025 08:19 PM EST
--- OUTSIDE RECORDS SUMMARY | 2024-05-16 06:00 | XMS_ITS ---
Author Organization The [facility] in [place] Address [address] [place] [address] Care Team Providers Care Metallurgical Specialist Name Role Phone Fidel Reis MD Primary Care Provider Unavailab Nina Modi Unavailable [phone] REASON FOR VISIT MD Encounters Encounter Location Date Provider Diagnosis [facility] Oncology [address] [place] [address] 05/16/2024 Nina Rodas Plan Of Treatment Next Appt Details Provider Name:NINA RIVER , 03/13/2025 10:30:00 AM, [address] [place], [address], Progress Notes * Ganga MIRANDA LDOB:1960 (64 yo M)Acc No.[id number]:05/16/2024 UNLOCKED PROGRESS NOTE Progress Notes Patient: Geoff CERVANTESGanga :?Nina River M.D.:1960???Age:63 Y ???Sex:MaleDate:05/16/2024Phone:[phone]:[address] [place], [place]Pcp:Fidel Reis MD Subjective: * Chief Complaints: * 1 . MD. * Medical History: Objective: * Vitals: Assessment: Plan: * Treatment: * * Electronic signature of Nina Rodas MD, [id number] on 03/04/2025 at 08:18 PM ESTSign off status: PendingVisit Status:?CANC (Cancelled) * Provider: Geoff River M.D. Date: 0 05/16/2024 Generated for Printing/Faxing/eTransmitting on:?03/04/2025 08:18 PM EST
--- OUTSIDE RECORDS SUMMARY | 2024-05-30 06:15 | XMS_ITS ---
Author Organization The [facility] in [place] Address [address] [place] [address] Care Team Providers Care In Store Marketing Representative Name Role Phone Fidel Reis MD Primary Care Provider Unavailab Nina Modi Unavailable [phone] REASON FOR VISIT MD Encounters Encounter Location Date Provider Diagnosis [facility] Oncology [address] [place] [address] 05/30/2024 Nina Rodas Plan Of Treatment Next Appt Details Provider Name:NINA RIVER , 03/13/2025 10:30:00 AM, [address] [place], [address], Progress Notes * Ganga MIRANDA LDOB:1960 (64 yo M)Acc No.[id number]:05/30/2024 UNLOCKED PROGRESS NOTE Progress Notes Patient: Geoff CERVANTESGanga :?Nina River M.D.:1960???Age:63 Y ???Sex:MaleDate:05/30/2024Phone:[phone]:[address] [facility], [place]Lmv:Fidel Reis MD Subjective: * Chief Complaints: * 1 . MD. * Medical History: Objective: * Vitals: Assessment: Plan: * Treatment: * * Electronic signature of Nina Rodas MD, [id number] on 03/04/2025 at 08:19 PM ESTSign off status: PendingVisit Status:?VOICEMSG (Voice) * Provider: Geoff River M.D. Date: 0 05/30/2024 Generated for Printing/Faxing/eTransmitting on:?03/04/2025 08:19 PM EST
--- OUTSIDE RECORDS SUMMARY | 2024-08-01 08:00 | XMS_ITS ---
Author Organization [facility] in [place] Address [address] [place] [address] Care Team Providers Care Chief Librarian Branch Name Role Phone Fidel Reis MD Primary Care Provider Unavailab Nina Modi Unavailable [phone] REASON FOR VISIT MD Encounters Encounter Location Date Provider Diagnosis [facility] [address] [place] [address] 08/01/2024 Nina Rodas Plan Of Treatment Next Appt Details Provider Name:NINA RIVER , 03/13/2025 10:30:00 AM, [address] [place] [place], [address], Progress Notes * Ganga MIRANDA LDOB:1960 (64 yo M)Acc No.[id number]:08/01/2024 UNLOCKED PROGRESS NOTE Progress Notes Patient: Geoff CERVANTESGanga :?Nina River M.D.:1960???Age:64 Y ???Sex:MaleDate:08/01/2024Phone:[phone]:[address] [facility], [id number]:Fidel Reis MD Subjective: * Chief Complaints: * 1 . MD. * Medical History: Objective: * Vitals: Assessment: Plan: * Treatment: * * Electronic signature of Nina Rodas MD, [id number] on 03/04/2025 at 08:20 PM ESTSign off status: PendingVisit Status:?CANC (Cancelled) * Provider: Geoff River M.D. Date: 0 08/01/2024 Generated for Printing/Faxing/eTransmitting on:?03/04/2025 08:20 PM EST
--- OUTSIDE RECORDS SUMMARY | 2024-08-15 05:15 | XMS_ITS ---
Author Organization [facility] in [place] Address [address] [place] [address] Care Team Providers Care Veterinary Radiologist Name Role Phone Fidel Reis MD Primary Care Provider Unavailab Nina Modi Unavailable [phone] REASON FOR VISIT MD Encounters Encounter Location Date Provider Diagnosis [facility] [address] [place] [address] 08/15/2024 Nina Rodas Plan Of Treatment Next Appt Details Provider Name:NINA RIVER , 03/13/2025 10:30:00 AM, [address] [place], [address], Progress Notes * Ganga MIRANDA LDOB:1960 (64 yo M)Acc No.[id number]:08/15/2024 UNLOCKED PROGRESS NOTE Progress Notes Patient: Geoff CERVANTESGanga :?Nina River M.D.:1960???Age:64 Y ???Sex:MaleDate:08/15/2024Phone:[phone]:[address] [place], [place]Pcp:Fidel Reis MD Subjective: * Chief Complaints: * 1 . MD. * Medical History: Objective: * Vitals: Assessment: Plan: * Treatment: * * Electronic signature of Nina Rodas MD, [id number] on 03/04/2025 at 08:19 PM ESTSign off status: PendingVisit Status:?CANC (Cancelled) * Provider: Geoff River M.D. Date: 0 08/15/2024 Generated for Printing/Faxing/eTransmitting on:?03/04/2025 08:19 PM EST
--- OUTSIDE RECORDS SUMMARY | 2024-08-29 05:30 | XMS_ITS ---
Author Organization The [facility] in [place] Address [address] [place] [address] Care Team Providers Care Space Officer Name Role Phone Fidel Reis MD Primary Care Provider Unavailab Nina Modi Unavailable [phone] REASON FOR VISIT MD Encounters Encounter Location Date Provider Diagnosis The [facility] On[facility] [address] [place] [address] 08/29/2024 Nina Rodas Plan Of Treatment Next Appt Details Provider Name:NINA RIVER , 03/13/2025 10:30:00 AM, [address] [place], [address], Progress Notes * Ganga MIRANDA LDOB:1960 (64 yo M)Acc No.[id number]:08/29/2024 UNLOCKED PROGRESS NOTE Progress Notes Patient: Geoff CERVANTESGanga :?Nina River M.D.:1960???Age:64 Y ???Sex:MaleDate:08/29/2024Phone:[phone]:[address] [facility], [place]Mlw:Fidel Reis MD Subjective: * Chief Complaints: * 1 . MD. * Medical History: Objective: * Vitals: Assessment: Plan: * Treatment: * * Electronic signature of Nina Rodas MD, [id number] on 03/04/2025 at 08:19 PM ESTSign off status: PendingVisit Status:?CANC (Cancelled) * Provider: Geoff River M.D. Date: 0 08/29/2024 Generated for Printing/Faxing/eTransmitting on:?03/04/2025 08:19 PM EST
--- OUTSIDE RECORDS SUMMARY | 2024-09-26 06:45 | XMS_ITS ---
Author Organization The [facility] in [place] Address [address] [place] [address] Care Team Providers Care Farm Consultant Name Role Phone Fidel Reis MD Primary Care Provider Unavailab Nina Modi Unavailable [phone] REASON FOR VISIT MD Encounters Encounter Location Date Provider Diagnosis [facility] Oncology [address] [place] [address] 09/26/2024 Nina Rodas Plan Of Treatment Next Appt Details Provider Name:NINA RIVER , 03/13/2025 10:30:00 AM, [address] [place], [address], Progress Notes * Ganga MIRANDA LDOB:1960 (64 yo M)Acc No.[id number]:09/26/2024 UNLOCKED PROGRESS NOTE Progress Notes Patient: Geoff CERVANTESGanga :?Nina River M.D.:1960???Age:64 Y ???Sex:MaleDate:09/26/2024Phone:[phone]:[address] [facility], [phone]:Fidel Reis MD Subjective: * Chief Complaints: * 1 . MD. * Medical History: Objective: * Vitals: Assessment: Plan: * Treatment: * * Electronic signature of Nina Rodas MD, [id number] on 03/04/2025 at 08:20 PM ESTSign off status: PendingVisit Status:?VOICEMSG (Voice) * Provider: Geoff River M.D. Date: 0 09/26/2024 Generated for Printing/Faxing/eTransmitting on:?03/04/2025 08:20 PM EST
--- OUTSIDE RECORDS SUMMARY | 2024-09-26 07:15 | XMS_ITS ---
Author Organization The [facility] in [place] Address [address] [place] [address] Care Team Providers Care Double End Trimmer Name Role Phone Smiley NAZARIO, Fidel Primary Care Provider Unavailab Nina Modi Unavailable [phone] REASON FOR VISIT CL1.5 Encounters Encounter Location Date Provider Diagnosis [facility] [address] [place] [address] 09/26/2024 Nina Rodas Plan Of Treatment Next Appt Details Provider Name:NINA RIVER , 03/13/2025 10:30:00 AM, [address] [place], [address], Progress Notes * Ganga MIRANDA LDOB:1960 (64 yo M)Acc No.[id number]:09/26/2024 UNLOCKED PROGRESS NOTE Progress Note Patient: Geoff CERVANTESGanga :?Nina River M.D.:1960???Age:64 Y ???Sex:MaleDate:09/26/2024Phone:[phone]:[address] [facility], [id number]:Fidel Reis MD Subjective: * Chief Complaints: * 1 . CL1.5. * Medical History: Objective: * Vitals: Assessment: Plan: * Treatment: * * Electronic signature of Nina Rodas MD, [id number] on 03/04/2025 at 08:18 PM ESTSign off status: PendingVisit Status:?PEN (Pending) * Provider: Geoff River M.D. Date: 09/26/2024 Generated for Printing/Faxing/eTransmitting on:?03/04/2025 08:18 PM EST
--- OUTSIDE RECORDS SUMMARY | 2024-11-28 06:15 | XMS_ITS ---
Author Organization [facility] in [place] Address [address] [place] [address] Care Team Providers Care Natural Fabricator Name Role Phone Fidel Reis MD Primary Care Provider Unavailab Nina Modi Unavailable [phone] REASON FOR VISIT MD Encounters Encounter Location Date Provider Diagnosis [facility] [address] [place] [address] 11/28/2024 Nina Rodas Plan Of Treatment Next Appt Details Provider Name:NINA RIVER , 03/13/2025 10:30:00 AM, [address] [place], [address], Progress Notes * Ganga MIRANDA LDOB:1960 (64 yo M)Acc No.[id number]:11/28/2024 UNLOCKED PROGRESS NOTE Progress Notes Patient: Geoff CERVANTESGanga :?Nina River M.D.:1960???Age:64 Y ???Sex:MaleDate:11/28/2024Phone:[phone]:[address] [place], [place]Pcp:Fidel Reis MD Subjective: * Chief Complaints: * 1 . MD. * Medical History: Objective: * Vitals: Assessment: Plan: * Treatment: * * Electronic signature of Nina Rodas MD, [id number] on 03/04/2025 at 08:21 PM ESTSign off status: PendingVisit Status:?CONFPHONE (Voice) * Provider: Geoff River M.D. Date: 0 11/28/2024 Generated for Printing/Faxing/eTransmitting on:?03/04/2025 08:21 PM EST
--- OUTSIDE RECORDS SUMMARY | 2025-02-28 04:44 | XMS_ITS | Continuity of Care Document ---
Author Organization [facility] Address [address] [place] [address] Phone Care Team Providers Care [facility] A[facility] Name Role Phone Fidel Reis MD Primary Care Provider Bubba Bahena DPM Attending Provider Klaus Brar MD Attending Provider Moisés Morelos MD Attending Provider Bubba Bahena DPM Referring Provider [phone] Fidel Reis MD Attending Provider Luis Causey MD Attending Provider Care Teams Patient Care Team Team Status: Active Member Role/Relationship Status Dates Fidel Reis MD Primary Care Provider Active Visit Care Team Team Status: Active Member Role/Relationship Status Dates Fidel Reis MD Primary Care Provider Active S tart: January 01, 2025 Bubba Bahena DPM MSAttending ProviderActiveStart: January 01, 2025 Visit Care Team [...] ProviderActiveStart: January 25, 2025 End: January 25, 2025Bubba Bahena DPM MSReferring ProviderActiveStart: January 25, 2025 End: January 25, 2025 Visit Care Team Team Status: Inactive Member Role/Relationship Status Dates Fidel Reis MD Primary Care Provider Active S tart: February 01, 2025 End: February 01, [facility]25[facility] ProviderActiveStart: February 01, 2025 End: February 01, 2025 Patient Care Team Team Status: Inactive Member Role/Relationship Status Dates Fidel Reis MD Primary Care Provider Active S tart: February 28, 2025 End: February 28ryAlice Blakely ProviderActiveStart: February 28, 2025 End: February 28, 2025 Chief Complaint and Reason for Visit Chief Complaint Admit Date Open Wound January 23, 2025 1 0:54am Ref: Dr. Bahena - Abscess L. Ankle O ctober 2024 1:03pm Established Patient February 01, 2025 9 :41am Discuss procedures & amputations [facility] r 2024 9:09am Reason for Visit Admit Date Diabetes mellitus [...] Wound infection January 25, 2025 1 :03pm Chronic ulcer of left 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 February 01, 2025 9:41am Chronic ulcer of right foot with fat lay er exposed February 01, 2025 9:41am HTN (hypertension) February 01, 2025 9 :41am Incontinence overflow, urine January 9:41am Major depressive disorder, recurrent epi sode, mild February 01, 2025 9:41am Type 2 diabetes mellitus wit h hyperglycemia, without long-term current use February 01, 2025 9:41am Allergies, Adverse Reactions, Alerts Allergen Type Severity Reaction Last Updated Verified Status Comments omadacycline Allergy Unknown Unknown Reaction February 28, 2025 9:15am Yes Active kidney pain vancomycin Adverse Reaction Severe Shut kidneys down February 28, 2025 9:15am Yes Active ferrous sulfateAdverse ReactionUnknownItchingDecember 2024 9:15amYesActive Social History Smoking Status Status Start Date End Date Date of Observa tion Never smoked tobacco (finding) January 25, 2025 1:18pm Observation Status Observation Response Date of Response Legal Sex Male (finding) Sex Assigned At BirthMaleApril 1960 Family History Relationship Condition Age at Onset Recorded Date/T alverto father Autoimmune disorder Unknown DeceasedUnknownmotherMyocardial infarctionUnknownHypertensionUnknownDeceased UnknownHeart diseaseUnknown Problems Active Problems Problem Diagnosis/Recorded Date Onset Date Status C omments Pressure ulcer of sacral reg ion, stage 3 November 02, 2017 11:33am Unknown Active Pressure injury of right ischium, stage 4March 2022 12:13pmUnknownActive Pressure ulcer of ischiumSeptember 2017 9:44amUnknownActivePressure ulcer of left buttock, stage 4February 2020 11:36amUnknownActiveStage IV pressure ulcer of sacral regionFebruary 2020 11:11amUnknownActiveStage IV pressure ulcer of sacral regionAugust 2020 10:16amUnknownActivePressure ulcer of right foot, stage 2February 2020 11:12amUnknownActiveStage IV pressure ulcer of right buttockFebruary 2020 11:36amUnknownActivePressure ulcer of right ischiumSeptember 2017 9:44amUnknownActiveUnstageable pressure ulcer of right heelMay 2021 11:32amUnknownActivePressure ulcer of ankleFebruary 2020 11:12amUnknownActivePressure injury of left ischium, stage 4August 2020 10:17amUnknownActiveBilateral lower extremity edemaJune 2024 1:18pmUnknownActiveOsteomyelitis of fifth toe of left footNovember 2022 9:34pmUnknownActivePressure ulcer of ischium, stage 4August 2020 10:17am UnknownActiveOther acute postprocedural painJune 2021 11:50amUnknownActive Acute hematogenous osteomyelitis, left ankle and footNovember 2022 1:44pm UnknownActiveParaplegiaFebruary 2020 6:31pmUnknownActiveInjury of cauda equina, subsequent encounterMarch 2017 12:46pmUnknownActiveCauda equina spinal cord injurySeptember 2016 9:28amUnknownActivePressure ulcer of left buttock, stage 3March 2017 12:45pmUnknownActiveDecubitus ulcer of right buttock, stage 2May 2017 12:06pmUnknownActiveWound infectionJuly 2024 10:16amUnknownActiveUrticariaNovember 2024 10:54amUnknownActivePain May 19, 2018 11:03amUnknownActiveObstructive sleep apnea (adult) (pediatric)January 30, 2025 10:53amUnknownActiveIncontinence overflow, urine January 30, 2025 10:53amUnknownActiveChronic kidney disease, stage III (moderate)February 06, 2023 9:35pmUnknownActiveDyslipidemiaNovember 2024 10:52amUnknownActiveChronic ulcer of left 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Nov2022 1:45pmUnknownActiveChronic ulcer of right foot with fat layer exposed February 07, 2023 1:44pmUnknownActiveCKD (chronic kidney disease)June 30, 2018 9:36amUnknownActiveRecurrent UTINovember 2024 10:54amUnknownActive Eczema, dyshidroticNovember 2024 10:53amUnknownActiveMicrocytic anemia February 07, 2023 3:21pmUnknownActiveOpen wound of both legs with complication August 30, 2024 1:18pmUnknownActiveChronic superficial gastritisJanuary 30, 2025 10:52amUnknownActiveDiabetes mellitus due to underlying condition with diabetic neuropathy, with long-term current use of insulinNov2022 1:45pmUnknownActiveType 2 diabetes mellitus with hyperglycemia, without long- term current use of insulinNov2024 10:54amUnknownActiveMajor depressive disorder, recurrent episode, mildNov2024 10:53amUnknown ActivePAD (peripheral artery disease)February 07, 2023 3:21pmUnknownActive Pressure ulcer of sacral regionMar 2017 12:42pmUnknownActiveDiabetic ulcer of foot associated with diabetes mellitus due to underlying condition, limited to breakdown of skinMay 2018 9:45amUnknownActiveDiabetic ulcer of foot associated with diabetes mellitus due to underlying condition, limited to breakdown of skinMay 2018 9:46amUnknownActiveDiabetic ulcer of foot associated with diabetes mellitus due to underlying condition, limited to jr akdown of skinMay 2018 9:46amUnknownActiveFoot ulcer with fat layer exposed October 27, 2022 11:09amUnknownActiveChronic kidney disease, stage 3aJanuary 30, 2025 10:52amUnknownActiveRight hip painNov2021 11:10amUnknown ActiveCauda equina compressionMay 2018 9:54amUnknownActiveSacral painJune 2022 10:43amUnknownActiveHTN (hypertension)July 28, 2018 9:54amUnknown Actived/t Vancomycin use affected kidneysObesitySept2016 9:28am UnknownActiveCellulitis of left footNov2022 9:35pmUnknownActive Inactive/Resolved Problems Problem Diagnosis/Recorded Date Onset Date Status C omments Pressure ulcer December 10, 2016 9:28am Unknown Reso lved Pressure ulcerSept2016 9:29amUnknownResolvedPressure ulcer of left hip, stage 3A2017 9:39amUnknownResolvedPressure ulcer of right hip, stage 2017 9:38amUnknownResolvedDiabetesMay 2018 9:54am UnknownResolvedCellulitisDeceer 2018 11:50amUnknownResolved Medications Medication Status Dose Units Route Directions Qty Days Refills S tart Date Stop Date End Date Reason(s) Instructions Adherence Nystatin 100,000 unit/mL suspension Discontinued 5 ML PO Four time s daily 140 7 0 December 26, 2024 11:00pm January 25, 2025 12:18pmswish and swallowAtenolol 100 mg MktlheVtlkts169NONM Every morningAugust 2017 11:00pmHTNComplies with drug therapyHydrocodone- Acetaminophen 5-325 mg omvlulAmbvxaajcwvd7TRYNQP0H as needed for vbxn7733Bwmolw 2017August 2017 11:00pmAugust 2017 11:01pmPressure ulcer of sacral region, stage 3Amoxicillin-Pot Clavulanate (Augmentin) 875-125 mg Tablet Ikkeycchguwu3MPGABGwwlq dailyFebruary 2020 12:00amFebruary 2020 6:39pm Hydrocodone-Acetaminophen 5-325 mg lsxfxwLhnynxxbzmob3LOJKMY9T as needed for mymt8894Djmp 2021June 2022 10:16amOther acute postprocedural pain Other acute postprocedural painHydrocodone-Acetaminophen 5-325 mg tablet Tnyhnwovokmc5DECTMP8W as needed for avza7228Nkcz 2022Nov2022 9:43pmSacral back pain Sacrococcygeal disorders, not elsewhere classifiedFerrous Sulfate 325 mg (65 mg iron) hedsssUwdhjlwwtzwr464JFBSRdawkKdwb 2022 11:00pmFebruary 2023 11:25amLevofloxacin 500 mg luwllnQqpvvovmynks476IDQXDwrdjHsjrlblbq 2022 11:00pmNovember 2022 3:16pmAmoxicillin-Pot Clavulanate 500-125 mg tablet Hwujiekzarei0DBDYUZ46VXqubteupl 2022 11:00pmNovember 2022 3:16pm Atorvastatin 40 mg lecmrnScqxjl88IWEXAyvfs morningFebruary 2023 12:00am Complies with drug therapyAmlodipineDiscontinuedSept2016 11:00pm December 08, 2016 1:50pmLisinopril 10 mg GyvrhrHgpbjgcilruk53RUYEHtcrq morningSept2016 11:00pmJanuary 30, 2025 10:58amHTNCitalopram (Celexa) 40 mg FnmrrqVnefed98LYGKFsvkz Se2016 11:00pm DepressionComplies with drug therapyBactrimDiscontinuedSept2016 11:00pmSept2016 1:50pmRosuvastatin (Crestor) 20 mg Tablet Gaowikdoseuw28VVVGAejziKimtbdnmr 10th, 2017 11:00pmDe[facility] 2018 11:03am HyperlipidemiaSodium Hypochlorite (Dakin's Solution) 0.25 % SolutionDiscontinued 1IRRIGTOPICALDailySept2016 11:00pmA[facility] hospitalt 2017 10:29am Fenofibrate 150 mg UxwpiooBpmcmrdymrxd474MEWHQjmkf at bedtimeS2016 11:00pmAucibola [facility] hospitalt 2020 10:09amHyperlipidemiaInsulin Aspart U-100 (Novolog) 100 unit/mL VzxjdtzpFknwoygayztx5KAUKXTCCOYSXLELG TIMES DAILY WITH MEALS Protocol: *NOT APPROPRIATE [...] for Protocol details.Insulin Glargine (Lantus) 100 unit/mL WbsyuwndUbkomlvrhcht12CTCRLMZDAUEOrdoz dailySept2016 11:00pmJune 2022 10:16amDMAmlodipine 10 mg NlwketFdrgkg79EUDISzzfi morningSept2016 11:00pmHTNComplies with drug therapyGentamicin 0.1 % qwvwqfqnCwvxwhhgqzql9DSPBUJEHVKYEUUccnx982Kivefqr 2017 12:00amAugu2017 10:29amapply to sacral ulcer dailyDicloxacillin 500 mg CapsuleDiscontinued 500MGPOThree times dailyMarch 2017 12:00amMay 2017 9:21am Sulfamethoxazole-Trimethoprim (Bactrim Ds) 800-160 mg LdjbbsEfmsniqkggsg1JSCFJ Twice dailyMarch 2017 11:00pmMay 2017 9:21amSodium Hypochlorite (Dakin's Solution) 0.25 % vnkbjcdhEytbdnvydmpg4WHSLOKWIUCDGLSlbga3727Dtyz 2017 11:00pmAugust 2017 1:58pmAmoxicillin-Pot Clavulanate (Augmentin) 875- 125 mg naoaypUckenjtidgcm0WBTBVTfnwm nsmnf23888Rggd 2017 11:00pmJuly 2017 11:00pmJuly 2017 11:01pmGentamicin 0.1 % sbpgbpbpExkdszsfsabh1RABQCP KFBWETKEdhpr764Qtrrea 2017 11:00pmFebruary 2018 11:36amapply to ulcers as directedCephalexin 500 mg XpzdajmEglxriqfwkgr156PKKXUncpu times daily November 29, 2017 11:00pmSept2017 9:65hbs66 days as ordered per Dr. Diazulfamethoxazole-Trimethoprim (Bactrim Ds) 800-160 mg Tablet Fxclfozjvhde2NLKIALhaceChqhkon 2018 12:00amAugust 2021 10:49am Insulin Lispro (Humalog Kwikpen Insulin) 100 unit/mL Insulin PenDiscontinued0 .ROUTE.COMPLEXFebruary 2018 12:00amJune 2022 10:16amSLIDING SCALE Glipizide 10 mg TwpzrmHzjbos27BYULZyxom dailyApril 2018 11:00pmComplies with drug therapyClindamycin Hcl 150 mg CapsuleDiscontinuedMay 2018 11:00pm November 17, 2018 9:14amSilver Sulfadiazine (Silvadene) 1 % creamDiscontinued1 VJBBGEDDNAMJMRggex0633Snon 2018 11:00pmDecember 2018 11:03amapply a 1.5 mm thicknessBetamethasone Valerate 0.1 % oazlijjiOltydebozvdw7XIOCIZDUMSCJV Daily as needed for skin wlqtcnnvwq512Cxxzgz 22nd, 2019 9:49amDecember 2018 11:03amuse for 2 wks on and 1 wk off to affected areaOxybutynin Chloride 10 mg Tablet Extended Release 88uiKvacruvxbpjh68BFQVLgddhZhwgpcnf 26th, 2019 12:00amNovember 2022 7:56amDoxycycline Hyclate 100 mg capsuleDiscontinued 100MGPOTwice otkrs10033WcwyhjviMarch 23, 2019 12:00amOctober 2019 10:08am Fenofibrate Nanocrystallized 145 mg kwcgonPjauppmtgykh543NVQAXpkjs at bedtime November 18, 2020 11:00pmNov2022 3:16pmSitagliptin Phosphate (Januvia) 100 mg pagaubHxhmmm125CXGGIavnv morningMa2021 11:00pmComplies with drug therapyLevofloxacin 750 mg UusacjMgeyvonlawcn375YOWUQmauzHxqe 2021 11:00pmAugust 2021 10:49amx6 weeks, Called to pharmacy 09/09/2021 Oxybutynin Chloride 15 mg tablet extended release 93dvAffycfqdmjwt44FSIXTuvrs February 07, 2023 12:00amNovember 2024 10:47amTriamcinolone Acetonide 0.5 % creamDiscontinued0.5APPLICTOPICALThree times dailyNov2022 12:00am May 04, 2023 11:25amOxybutynin Chloride 5 mg Tablet Extended Release 24hr Nircpapabuzj16VSAKHazza57595Dyxojxdb 2022 12:00amJuly 2024 9:53amOn Hold: not takingLevofloxacin 750 mg MricluMjvjytmcwhln942FFRSMyyud92Wcefykln 18th, 2023 12:00amFebruary 2023 11:23amFenofibrate Nanocrystallized 145 mg VytlydRjjpmxrjjtwy627VHCEUjrcn at oucxdie99HgnnrlbmFebruary 13, 2023 12:00amJune 2024 11:16amLevofloxacin 750 mg ywfhoxDgedurauffaw307XJMDCamtu773Mgrh 2024 11:00pmFebruary 01, 2025 10:47amLocal infection of wound Other injury of unspecified body region, initial encounter Local infection of the skin and subcutaneous tissue, unspecifiedHydrocodone- Acetaminophen 5-325 mg ifatalLukffxtidatm6BVGKJK6C as needed for aprl6944Tjmh 2024October 2024 12:18pmOther acute postprocedural pain Other acute postprocedural painNitrofurantoin Monohyd/M-Cryst (Macrobid) 100 mg grdnpwfRjwutu437OTMZUkylz dailyDecember 2024 12:00ammust administer with a meal/foodComplies with drug therapyHydroxyzine Hcl 50 mg tdiysbDqccmrzldhup88SN PODaily at bedtimeAugust 29, 2024 11:00pmJanuary 30, 2025 10:59amHydroxyzine Hcl 50 mg fkvfxsLyslcy29SPOPZtxl times daily as needed for itchingJanuary 30, 2025 10:58amComplies with drug therapyLisinopril 20 mg jlnlhkOydiui14XPVPMkmov January 30, 2025 12:00amComplies with drug therapyBupropion Hcl (Wellbutrin Xl) 150 mg tablet extended release 24 eySktviq295EOGCIkoeb 2024 12:00amComplies with drug therapy Immunizations Immunization Event Date Not Given Reason Dose Number Ostomy Rn Lot Number Reason(s) Given Vaccine Information Statement (VIS) Detail Administration Location Quadrivalent Influenza February 11, 2023 nx794lmXyjdqasqiVan [facility] CtrTrivalent Influenza VaccineOctober 2014 Medical Equipment Device Date Implanted Device Details EPIFIX MESH SHEET 4X4.5CM June 04, 2023 Collagen wound matrix dressingMarch 2023UDI: ()[id number] Issuing Agency: 1 Device Id: [id number] Expiration Date: 2025-03-28 Lot Number: [id number] wound matrix dressingMarch 2023UDI: ()[id number] Issuing Agency: 1 Device Id: [id number] Expiration Date: 2025-04-28 Lot Number: [id number] wound matrix dressingNovember 2022UDI: ()[id number] Issuing Agency: 1 Device Id: [id number] Expiration Date: 2024-11-26 Lot Number: [id number] Relevant Diagnostic Tests and/or Laboratory Data Laboratory Results Test Collection Date/Time Result Date/Time Result Interpretation Reference Range Result Comment Performing Site Basophils # (Auto) January 01, 2025 10:07am January 012024 10:07am 0.0 10 3/uL 0.0-0.1[facility]ion [facility] 2024 10:07amOctober 2024 10:07am15.2Basophils (%) (Auto)January 01, 2025 10:07amOctober 2024 10:07am0.2 %0.2-2.0 BUN/Creatinine RatioOctober 2024 10:07amOctober 2024 10:07am19.8 Eosinophils # (Auto)January 01, 2025 10:07amOctober 2024 10:07am0.9 10 3/uLAbove high normal0.0-0.7Blood Urea NitrogenOctober 2024 10:07amOctober 2024 10:07am47.0 mg/dLAbove high normal7.0-18.0Eosinophils (%) (Auto) January 01, 2025 10:07amOctober 2024 10:07am6.8 %0.9-7.0Calcium Level January 01, 2025 10:07amOctober 2024 10:07am8.5 mg/dL8.5-10.1Hematocrit January 01, 2025 10:07amOctober 2024 10:07am23.8 %Below lower panic limits 42.0-54.0RESULTS CALLED TO Dr. BahenaChloride LevelOct2024 10:07am January 01, 2025 10:65xx027 mmol/M72-922MdnxflndeqOimqvrv 2024 10:07am January 01, 2025 10:07am7.2 g/dLBelow low ayqhtt87.0-18.0Carbon Dioxide Level January 01, 2025 10:07amOctober 2024 10:07am22.8 mmol/L21.0-32.0Immature Granulocyte # (Auto)January 01, 2025 10:07amOctober 2024 10:07am0.12 10 3/uLAbove high normal0.00-0.03CreatinineOctober 2024 10:07amOctober 2024 10:07am2.37 mg/dLAbove high normal0.70-1.30Immature Granulocyte % (Auto) January 01, 2025 10:07amOctober 2024 10:07am0.9 %Above high normal0.0-0.5 Estimated GFR ()January 01, 2025 10:07amOctober 2024 10:67co80Zwdbc low normal>=60 mL/min/1.73m 2Lymphocytes # (Auto)January 01, 2025 10:07amOctober 2024 10:07am1.4 10 3/uL1.2-3.8Estimated GFR (Non- AmericanOctober 2024 10:07amOctober 2024 10:01xu69Rrybg low normal>=60 mL/min/1.73m 2Lymphocytes (%) (Auto)January 01, 2025 10:07amOctober 2024 10:07am10.8 %Below low dmvjno33.5-60.0Glucose LevelOctober 2024 10:07amOctober 2024 10:84qn556 mg/dLAbove high gyhghf07-877Zlzd Corpuscular HemoglobinOctober 2024 10:07amOctober 2024 10:07am24.9 pgBelow low .9-34.0Potassium LevelOctober 2024 10:07amOct2024 10:07am 5.0 mmol/L3.5-5.1Mean Corpuscular Hemoglobin ConcentOctober 2024 10:07am January 01, 2025 10:07am30.3 g/dL29.9-35.2Sodium LevelOctober 2024 10:07am January 01, 2025 10:63rp237 mmol/O962-398Phkc Corpuscular VolumeOctober 2024 10:07amOctober 2024 10:07am82.4 fL80.0-94.0Monocytes # (Auto)January 01, 2025 10:07amOctober 2024 10:07am1.1 10 3/uLAbove high normal0.3-0.8 Monocytes (%) (Auto)January 01, 2025 10:07amOct2024 10:07am8.1 % 1.7-12.0Mean Platelet VolumeOctober 2024 10:07amOctober 2024 10:07am 8.7 fLBelow low normal9.5-13.5Neutrophils # (Auto)January 01, 2025 10:07am January 01, 2025 10:07am9.6 10 3/uLAbove high normal1.4-6.5Neutrophils (%) (Auto)January 01, 2025 10:07amOctober 2024 10:07am73.2 %43.0-75.0Platelet CountOctober 2024 10:07amOctober 2024 10:30zs143 10 3/nY581-461Wrx Blood CountOctober 2024 10:07amOctober 2024 10:07am2.89 10 6/uLBelow low normal4.70-6.10Red Cell Distribution WidthOctober 2024 10:07amOctober 2024 10:07am14.6 %11.0-15.0Corrected White Blood CountOctober 2024 10:07amOctober 2024 10:07am13.2 10 3/uLAbove high normal4.0-11.0 Vital Signs Vital Reading Result Reference Range Collection Date/Time Height 71 [in_i] January 23, 2025 10:91pjBknvgd350.05 kgOctober 2024 10:59amBody Iwyxspaxpit07.2 [degF]97.6-99.0October 2024 10:13amHeart Rate82 /ctj83-909 January 23, 2025 10:13amRespiratory rate18 /pfu86-87Eotn 2024 9:26amBP Nrdtgemh637 mm[Hg]100-140January 23, 2025 10:13amBP Yvqdrezax04 mm[Hg]60-100 January 23, 2025 10:13amBMI (Body Mass Index)31.4 kg/i8Htlxswi 2024 10:48ryFylwgi36 [in_i]January 25, 2025 12:39gmPbaktq454.05 kgOctober 2024 12:19pmBody Xkbepgoubfa76.5 [degF]97.6-99.0Oct2024 12:19pmHeart Rate91 /luo76-680Hfoyhlv 30th, 2025 12:19pmBP Ttusgajw207 mm[Hg]100-140Oct2024 12:19pmBP Ypqjlunzh20 mm[Hg]60-100Oct2024 12:19pmBMI (Body Mass Index)31.4 kg/b1Pqejlms 2024 12:90jhSskbkj82 [in_i]February 01, 2025 10:84xqFlbmpu864.05 kgNov2024 10:45amBody Hevhfhwtxze34.1 [degF] 97.6-99.0Nov2024 10:45amHeart Rate88 /cwi03-935Pbkihgfs 6th, 2025 10:45amRespiratory rate20 /hkx65-79Cubkknrb 6th, 2025 10:45amOxygen saturation by Pulse elkudykh13 %95-100February 01, 2025 10:45amBP Cacsekhc420 mm[Hg] 100-140February 01, 2025 10:45amBP Nmdqenvsd29 mm[Hg]60-100Nov2024 10:45amBMI (Body Mass Index)31.4 kg/s4DvakefqlFebruary 01, 2025 10:09gkNgdeik747.05 kg February 28, 2025 9:17amBody Szxizdnnbtu12.0 [degF]97.6-99.0Dece2024 9:17amHeart Jwni669 /qvy95-122WasypcpcFebruary 28, 2025 9:17amOxygen saturation by Pulse %95-100ce2024 9:17amBP Baatitlf548 mm[Hg]100-140 February 28, 2025 9:17amBP Vqmhrhqay87 mm[Hg]60-100ce2024 9:17am Advance Directives Advance Directive Response Recorded Date/ Time Advance Directives No January 11, 2025 12:24pm Insurance Providers Guarantor Ganga Evans Alloway Address [address] [address]Tdtjnjx Info.Home Phone: Payer Group Member ID Coverage Type Subscriber Relationship to Subscriber Effective Date Expiration Date MMO Id: [id number] Alloway Id: [id number] [address] [facility] [address] Home Phone: [facility] BC/BS Id: [id number] Alloway Id: [id number] [address] [facility] [address] Home Phone: Medicare [id number] L Alloway Id: [id number] [address] [address] Home Phone: Email: [email or web address] [address] [place] [address] Work Phone: Retired Id: [id number] L Alloway Id: [id number] [address] [facility] [address] Home Phone: Email: [email or web address] Encounter Location(s) Arrival/Admit Date Discharge/Departure Date Discharge/Departure Disposition Provider(s) Non-patient / Non-visit -[facility] Professional [facility] O ctober 2024 11:07am Bubba Bahena DPM MSRegistered Recurring-Wound Care [place] 2024 10:54amAonelia Brar V, MDDeparted Physician/Provider Office Visit- [facility] Infect DisOctober 2024 1:03pmOctober 2024 1:47pm Discharged to home care or self care (routine discharge)Moisés Morelos MD Departed Physician/Provider Office Visit-[facility] Medicine [facility] [place] 2024 9:41amNovember 2024 11:14amDischarged to home care or self care (routine discharge)Fidel Reis , ALISHAeparted Physician/Provider Office Visit- [facility] Vascular SurgDecember 2024 9:09amDecember 2024 9:35am Discharged to home care or self care (routine discharge)Jesus Felix MD Recent Diagnosis Onset Date Admit Date [...] 1:03pm Wound infection Unknown January 25 1:03pm Chronic ulcer of left 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 Unknown February 01, 2025 9:41am Chronic ulcer of right foot with fat layer exposed Unknown November 6th, 2025 9:41am HTN (hypertension) Unknown February 01, 2025 9:41am Incontinence overflow, urine Unknown Nov ember 2024 9:41am Major depressive disorder, r ecurrent episode, mild Unknown February 01, 2025 9:41am Type 2 diabetes mellitus wit h hyperglycemia, [...] legs with complicationacuteOctober 2024 1:03pmWound infectionacuteOctober 2024 1:03pmChronic ulcer of left 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acuteNovember 2024 9:41amChronic ulcer of right foot with fat layer exposedacuteNov2024 9:41amHTN (hypertension)acuteNov2024 9:41amIncontinence overflow, urineacuteNov2024 9:41amMajor depressive disorder, recurrent episode, mildacuteNov2024 9:41amType 2 diabetes mellitus with hyperglycemia, without long-term current useacute February 01, 2025 9:41am Plan of Treatment Author Moisés Morelos [facility] TroyAuthoredOctober 2024 2:11pmPatient has had wounds for quite [...] his R leg VAC is in place. Author Fidel Reis [facility]AuthoredFormerly [facility]20[facility] 11:20amReports BS controlled and due for A1C. Stick to ADA diet and limit carbs. BP controlled and monitor PRN. Symptoms stable with celexa but increased stress about possible upcoming double AKA. Add wellbutrin. Symptoms stable and monitor. Follow with wound care and vascular. Follow with wound care and vascular. Future Tests Future scheduled test information is unavailable Pending Tests Pending diagnostic test information is unavailable Future Visits Future appointment information is unavailable Future Procedures Procedure Name Ordered Date Scheduled Date A1C with Estimated Average Glu February 01 11:10am Future Medications Future medication information is unavailable Patient Instructions Patient instructions are unavailable
[2025-03-04] VITALS (31 sets, daily range): BP systolic 131–153; BP diastolic 60–65; PULSE 85–117; TEMP 37.4–37.8; O2SAT 91–100
--- NOTE | 2025-03-04 19:07 | ECG_ITS ---
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 Measurements Intervals [place] Rate: 86 P: 55 SD: 152 QRS: 9 QRSD: 100 T: 22 QT: 360 QTc: 404 Interpretive Statements 1100 Sinus rhythm Normal ECG Compared to ECG 03/10/2024 10:37:05 Sinus bradycardia no longer present Electronically Signed On 03-04-2025 21:15:07 EST by OSCAR MCKENZIE M.D.
[2025-03-04] MEDS: LORAZEPAM 2 MG/ML VIAL IV (19:27)
[2025-03-04] MEDS: HALOPERIDOL LACTATE 5 MG/ML VIAL IV (19:27)
[2025-03-04] MEDS: 0.9 % SODIUM CHLORIDE 1,000 ML 999 ML IV (19:27)
[2025-03-04 19:36] LABS: Hemoglobin 7.1 g/dL (14.0-18.0); Immature Granulocytes Abs Auto 0.06 10^3/uL (0.00-0.03); Immature Granulocytes Pct Auto 0.5 % (0.0-0.5); Lymphocytes Absolute Auto 2.1 10^3/uL (1.2-3.8); Mean Corpuscular HGB Conc 31.1 g/dL (29.9-35.2); Mean Corpuscular Hemoglobin 25.6 pg (25.9-34.0); Mean Corpuscular Volume 82.3 fL (80.0-94.0); Platelet Count 388 10^3/uL (150-450); Red Blood Count 2.77 10^6/uL (4.70-6.10); White Blood Count 12.3 10^3/uL (4.0-11.0)
[2025-03-04 19:39] LABS: Hematocrit 22.8 % (42.0-54.0)
--- NOTE | 2025-03-04 19:42 | ED.GENADUL1 ---
HPI HPI - General Adult General Chief complaint: Altered Mental Status Stated complaint: ALTERED MENTAL STATUS Time Seen by Provider: 03/04/25 19:06 History of Present Illness HPI narrative: cc - altered mentation/confusion Pt is unable to give any history due to confusion. He is agitated and difficult to redirect. He does not follow commands well. He is paraplegic but allegedly at baseline can self cath and perform ADLs to care for himself. He has NIDDM. He is on Macrobid for UTI prevention. Pt brought in by EMS for evaluation - they reported that the called 911 because the patient had become confused today. He apparently have stage 4 wounds to both legs and is scheduled for amputation at [facility] - they could not tell me the date. The patient's reported to EMS that the patient is usually able to care for himself including self-catheterization of the urethra for urine. He apparently had a urinary catheter recently - perhaps last week? - but that the catheter had recently been pulled and now he was back to self-catheterization. Chart review shows a urological procedure at [facility] on 02/15/25. Related Data Home Medications ?Medication ?Instructions ?Recorded ?Confirmed amlodipine 10 mg tablet 10 mg PO DAILY 10/06/22 03/04/25 atenolol 100 mg tablet 100 mg PO DAILY 10/06/22 03/04/25 citalopram 40 mg tablet 40 mg PO DAILY 10/06/22 03/04/25 glipizide 10 mg tablet 10 mg PO DAILY 10/06/22 03/04/25 lisinopril 20 mg tablet 20 mg PO DAILY 10/06/22 03/04/25 sitagliptin phosphate 100 mg 100 mg PO DAILY 10/06/22 03/04/25 tablet (Januvia) atorvastatin 40 mg tablet 40 mg PO DAILY 06/30/23 03/04/25 hydroxyzine HCl 50 mg tablet 50 mg PO Q6H PRN itching 03/10/24 03/04/25 bupropion HCl 150 mg 24 hr tablet, mg PO 03/04/25 extended release oxybutynin chloride 15 mg mg PO 03/04/25 tablet,extended release 24 hr Previous Rx's ?Medication ?Instructions ?Recorded nitrofurantoin 100 mg PO BID 30 days #60 caps 02/15/25 monohydrate/macrocrystals 100 mg capsule (Macrobid) Allergies Allergy/AdvReac Type Severity Reaction Status Date / Time vancomycin Allergy renal Verified 03/04/25 19:47 failure omadacycline AdvReac Unknown itching Verified 03/04/25 19:47 [facility] Medical History (Updated 03/04/25 @ 23:15 by Jeremy Troy) Sleep apnea ?G47.30 - Sleep apnea, unspecified (ICD-10) Delayed recovery from anesthesia Ulcer of right foot due to type 2 diabetes mellitus ?E11.621 - Type 2 diabetes mellitus with foot ulcer (ICD-10) ?L97.519 - Non-pressure chronic ulcer of other part of right foot with unspecified severity (ICD-10) Type 2 diabetes mellitus with left diabetic foot ulcer ?E11.621 - Type 2 diabetes mellitus with foot ulcer (ICD-10) ?L97.529 - Non-pressure chronic ulcer of other part of left foot with unspecified severity (ICD-10) Cellulitis of right leg ?L03.115 - Cellulitis of right lower limb (ICD-10) Acute osteomyelitis of left foot ?M86.172 - Other acute osteomyelitis, left ankle and foot (ICD-10) Decubitus ulcer, buttock ?L89.309 - Pressure ulcer of unspecified buttock, unspecified stage (ICD-10) Decubitus ulcer of sacral area ?L89.159 - Pressure ulcer of sacral region, unspecified stage (ICD-10) Cellulitis of left lower leg ?L03.116 - Cellulitis of left lower limb (ICD-10) Non-pressure chronic ulcer of other part of left foot with fat layer exposed ?L97.522 - Non-pressure chronic ulcer of other part of left foot with fat layer exposed (ICD-10) Venous stasis ulcer of 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 ?I83.003 - Varicose veins of unspecified lower extremity with ulcer of ankle (ICD-10) ?L97.302 - Non-pressure chronic ulcer of unspecified 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 (ICD-10) Urethral stricture in male ?N35.919 - Unspecified urethral stricture, male, unspecified site (ICD-10) Acute anemia ?D64.9 - Anemia, unspecified (ICD-10) Pressure ulcer of both heels ?L89.619 - Pressure ulcer of right heel, unspecified stage (ICD-10) ?L89.629 - Pressure ulcer of left heel, unspecified stage (ICD-10) History of blood transfusion ?Z92.89 - Personal history of other medical treatment (ICD-10) Sacral decubitus ulcer ?L89.159 - Pressure ulcer of sacral region, unspecified stage (ICD-10) Cellulitis ?L03.90 - Cellulitis, unspecified (ICD-10) Anemia ?D64.9 - Anemia, unspecified (ICD-10) Iron deficiency anemia ?D50.9 - Iron deficiency anemia, unspecified (ICD-10) Neurogenic bladder ?N31.9 - Neuromuscular dysfunction of bladder, unspecified (ICD-10) Disc degeneration, lumbosacral ?M51.37 - Other intervertebral disc degeneration, lumbosacral region (ICD-10) Diabetes 1.5, managed as type 2 ?E13.9 - Other specified diabetes mellitus without complications (ICD-10) HTN (hypertension) ?I10 - Essential (primary) hypertension (ICD-10) Cauda equina spinal cord injury ?S34.3XXA - Injury of cauda equina, initial encounter (ICD-10) Paraplegic spinal paralysis ?G82.20 - Paraplegia, unspecified (ICD-10) Surgical History B[place] filter in place ?Z95.828 - Presence of other vascular implants and grafts (ICD-10) History of urethrotomy ?Z98.890 - Other specified postprocedural states (ICD-10) History of cystoscopy ?Z98.890 - Other specified postprocedural states (ICD-10) History of back surgery ?Z98.890 - Other specified postprocedural states (ICD-10) History of appendectomy ?Z90.49 - Acquired absence of other specified parts of digestive tract (ICD-10) Family History (Updated 02/09/25 @ 11:40 by Cassidy Hughes) Mother Multiple system atrophy Family history of hypertension Other Family history of Alzheimer's disease Social History (Updated 01/11/23 @ 07:48 by Kirti Bertrand) Within the past year, how often did you have a drink containing alcohol: never Within the past year, how often did you have six or more drinks on one occasion: never Score interpretation: A score less than 4 is consistent with normal alcohol consumption. Smoking status: Never smoker Non-prescribed substance use: denies use Previous occupational history: retired Highest level of school completed/degree received: high school graduate Are you now , , , , never or living with a partner: In a typical week, how many times do you talk on the telephone with family, friends, or neighbors: 3 or more times per week How often do you get together with friends or relatives: twice per week How often do you attend mandaeism or yazidi services: never Do you belong to any clubs or organizations such as mandaeism groups unions, [employer] or athletic groups, or school groups: no Total score: 2 Score interpretation: A score of greater than or equal to 2 indicates the lowest level of social isolation. Little interest or pleasure in doing things: not at all Feeling down, depressed, or hopeless: not at all Feel stressed/tense/nervous/anxious/difficulty sleeping: not at all Do you think of yourself as: straight/heterosexual Gender Identity: male Exam Narrative Exam Narrative: Nurses notes and vital signs reviewed and patient is not hypoxic. Temp 100.1 ?F oral General: Agitated and will not follow commands. Skin: Warm, dry, no pallor noted. Slightly jaundiced. Head: Normocephalic, atraumatic. Neck: Supple, non-tender. No meningismus. Eye: Pupils are equal, round and EOMI. Ears, Nose, Mouth, and Throat: TM are clear, no posterior oropharynx erythema or nasal mucosal hypertrophy, uvula is mid-line Oral mucosa is dry Cardiovascular: Regular Rate and Rhythm without murmur, gallop or rub. Respiratory: No accessory muscle use or respiratory distress. Lungs are clear to auscultation, no wheezing, rales or rhonchi Chest Wall: no tenderness, crepitus or subcutaneous emphysema Back: No external sign of back injury. Musculoskeletal: Moves upper extremities spontaneously. BL LE paraplegic. Right LE = chronic PVD changes. 3cm x 12cm open soft tissue ulcerative wound to the medial right lower leg deep into the lower leg with necrotic tissue in a strip superiorly measuring 1cm x 3cm - no purulent drainage. Right heel ulcer with variable depth, circular, no necrosis or purulent drainage. No surrounding or ascending erythema noted on either wound. Left heel = necrotic heel ulcer extending deep through cutaneous layer with large halo of necrosis, purulent discharge and foul smell. Left Foot = medial ulcer extending through subcutaneous layer with several spots of necrosis and purulent, foul-smelling drainage. 1.5cm x 1.5cm round necrotic lesion noted at the distal left 1st metatarsal along the edge between dorsal and plantar surfaces without drainage. No spreading or ascending erythema or cellulitis noted in the left foot. Left lower leg/calf has chronc PVD skin changes. Dorsalis pedis pulses palpable on left, dopplerable on right. GI: Abdomen is soft, non-distended. Normal bowel sounds. No pulsatile or solid masses appreciated. Does not react to palpation - no tenderness. No guarding or rigidity noted. Neurological: Awake and alert but does not answer questions regarding orientation. No cranial nerve dysfunction observed but exam is limited to the patient's confusion. patient is a paraplegic and has no movement below the waste. Psychiatric: uncooperative and non-interactive. Constitutional Vital Signs, click to edit/add: Last Vital Signs Temp 99.3 F 03/04/25 21:18 Pulse 85 03/04/25 21:18 Resp 16 03/04/25 21:18 BP 131/65 03/04/25 22:35 Pulse Ox 97 03/04/25 23:52 O2 Del Method Room Air 03/04/25 21:18 Course Vital Signs Vital signs: Vital Signs Blood Pressure 153/63 H 03/04/25 19:08 Temperature 99.3 F 03/04/25 21:18 Pulse Rate 85 03/04/25 21:18 Respiratory Rate 16 03/04/25 21:18 Blood Pressure 131/65 03/04/25 22:35 Pulse Oximetry 97 03/04/25 23:52 Oxygen Delivery Method Room Air 03/04/25 21:18 Medical Decision Making MDM Narrative Medical decision making narrative: Patient was agitated on arrival and noncooperative. He had to be sedated in order to protect the patient as well as the staff and obtain the testing that is necessary in this case. Patient was placed on engine monitor and EKG obtained. Blood drawn and sent for evaluation, including lactate and blood cultures. COVID and influenza were obtained. Urine was ordered to be obtained and sent for testing. Portable chest x-ray obtained. CT scan of the brain obtained. Blood cell count minimally elevated 12.3. Lactate is positive. He has chronic anemia. Today's value of hemoglobin is similar to what has been in the past. Carbon oxide is low at 20.1. Electrolytes are otherwise normal except for mild elevation of chloride at 110. BUN and creatinine are similar to the patient's baseline at 40 and 1.93. AST is normal and ALT is minimally decreased at 13 with an alk phos elevated at 168. Albumin is low at 1.5. COVID and influenza swabs were negative. Blood cultures are pending. Nursing staff is inserting a Rowe catheter in order to get a urine sample and monitor the patient's I's and O's. Chest x-ray does not indicate effusion, infiltrate or consolidation. @1999 -I spoke with the and she came in some additional details. The patient is to undergo amputation of both lower extremities on March 13 at [facility]. She said that Dr. Causey is the vascular [place] who [place] performing the amputation. She was informed of the fact the patient has sepsis, will be getting IV Zosyn once urine is obtained through catheterization. Additionally the patient is allergic to vancomycin so we will not be giving that. She told me that the pt used to see Dr Bahena - last visit was over a month ago - and he had referred her to Dr Causey. She told me that they had been doing in-office debridement regularly of the left foot/heel but it just wasn't getting better so they recommended amputation . @ 2014 -urinalysis resulted -no evidence of acute urinary tract infection was noted. No culture. @ 2034 -fax received at the patient's CT head which did not indicate any acute intracranial abnormality, per radiologist @ 2049 - Dr White - hospitalist director of marketing operations - was paged to discuss this patient's case and need for admission vs transfer to [facility]. He and I discussed the case and I sent him pictures of the patient's legs. @ 2107 We had also called to [facility] and - according to Livia, the nursing pit and auxiliaries supervisor - the hospitalist refused to accept transfer because vascular surgery is out of town and there is no vascular surgery coverage until Mar 12 (told to ER paralegal legal secretary @ 2117). Dr Guo reviewed the pictures and @ 2151 recommended transfer to tertiary facility with vascular coverage. @ 2157 - call placed to [facility] to discuss transfer. Pt had previously been there in association with his spinal stenosis/paraplegia. @ 8 - I spoke with Dr Rodriguez - vascular surgeon director of marketing operations at [facility]. He and I discussed the case, including lack of vascular coverage at [facility]. He agreed to be a customer relations consultant on the case and asked to admit to hospitalist service. @ 2234 - repeat lactate 0.6. Blood cultures pending. @ 9 - I spoke with Dr Walker - hospitalist at [facility]. He accepted the patient's transfer to their facility. We are now awaiting bed assignment and then will arrange ambulance transportation to their facility. Medical Records Medical records reviewed: Yes I reviewed the patient's medical records Lab Data Lab results reviewed: Yes I reviewed the patient's lab results Labs: Lab Results 03/04/25 03/04/25 03/04/25 Range/Units 19:13 19:28 20:15 WBC 12.3 H (4.0-11.0) 10^3/uL RBC 2.77 L (4.70-6.10) 10^6/uL Hgb 7.1 L (14.0-18.0) g/dL Hct 22.8 L* (42.0-54.0) % MCV 82.3 (80.0-94.0) fL MCH 25.6 L (25.9-34.0) pg MCHC 31.1 (29.9-35.2) g/dL RDW 14.6 (11.0-15.0) % Plt Count 388 (150-450) 10^3/uL MPV 8.6 L (9.5-13.5) fL Neut % (Auto) 72.3 (43.0-75.0) % Lymph % (Auto) 17.3 L (20.5-60.0) % Trego % (Auto) 7.6 (1.7-12.0) % Eos % (Auto) 2.1 (0.9-7.0) % Baso % (Auto) 0.2 (0.2-2.0) % Neut # (Auto) 8.9 H (1.4-6.5) 10^3/uL Lymph # (Auto) 2.1 (1.2-3.8) 10^3/uL Trego # (Auto) 0.9 H (0.3-0.8) 10^3/uL Eos # (Auto) 0.3 (0.0-0.7) 10^3/uL Baso # (Auto) 0.0 (0.0-0.1) 10^3/uL Abs Immat Gran (auto) 0.06 H (0.00-0.03) 10^3/uL Imm/Tot Granulo (auto) 0.5 (0.0-0.5) % Sodium 140 (136-145) mmol/L Potassium 4.6 (3.5-5.1) mmol/L Chloride 110 H (98-107) mmol/L Carbon Dioxide 20.1 L (21.0-32.0) mmol/L Anion Gap 14.5 BUN 40.0 H (7.0-18.0) mg/dL Creatinine 1.93 H (0.70-1.30) mg/dL Est GFR ( Amer) 43 L (>=60 mL/min/1.73m^2) Est GFR (Non-Af Amer) 35 L (>=60 mL/min/1.73m^2) BUN/Creatinine Ratio 20.7 Glucose 124 H (74-106) mg/dL Lactate 2.1 H* (0.4-2.0) mmol/L Calcium 8.9 (8.5-10.1) mg/dL Magnesium 1.7 L (1.8-2.4) mg/dL Total Bilirubin 0.3 (0.2-1.0) mg/dL AST 15 (15-37) U/L ALT 13 L (16-63) U/L Alkaline Phosphatase 168 H (46-116) U/L Total Protein 8.3 H (6.4-8.2) g/dL Albumin 1.5 L (3.4-5.0) g/dL Globulin 6.8 g/dL Albumin/Globulin Ratio 0.2 Urine Color Lt. yellow (YELLOW) Urine Clarity Clear (CLEAR) Urine pH 5.5 (5.0-9.0) Ur Specific Lewis 1.020 (1.005-1.025) Urine Protein 30 A (NEG/TRACE) mg/dL Urine Glucose (UA) Negative (NEGATIVE) mg/dL Urine Ketones Negative (NEGATIVE) mg/dL Urine Occult Blood Trace-i (NEGATIVE) Urine Nitrite Negative (NEGATIVE) Urine Bilirubin Negative (NEGATIVE) Urine Urobilinogen 0.2 (0.2-1.0) EU/dL Ur Leukocyte Esterase Negative (NEGATIVE) Urine RBC 0-2 (0-2) #/HPF Urine WBC 0-2 A (NONE SEEN) #/HPF Ur Squamous Epith Cells Rare (NONE/RARE) #/LPF Urine Crystals None seen (None Seen) #/HPF Urine Bacteria Trace A (NONE SEEN) #/HPF Urine Casts Seen A (NONE SEEN) #/LPF Coarse Granular Casts Rare Urine Mucus None seen (NONE SEEN) Ur Culture Indicated? No Influenza Type A Ag Negative Influenza Type B Ag Negative SARS-CoV-2 Ag (CV2AG) Negative (NEGATIVE) 03/04/25 Range/Units 22:35 WBC (4.0-11.0) 10^3/uL RBC (4.70-6.10) 10^6/uL Hgb (14.0-18.0) g/dL Hct (42.0-54.0) % MCV (80.0-94.0) fL MCH (25.9-34.0) pg MCHC (29.9-35.2) g/dL RDW (11.0-15.0) % Plt Count (150-450) 10^3/uL MPV (9.5-13.5) fL Neut % (Auto) (43.0-75.0) % Lymph % (Auto) (20.5-60.0) % Trego % (Auto) (1.7-12.0) % Eos % (Auto) (0.9-7.0) % Baso % (Auto) (0.2-2.0) % Neut # (Auto) (1.4-6.5) 10^3/uL Lymph # (Auto) (1.2-3.8) 10^3/uL Trego # (Auto) (0.3-0.8) 10^3/uL Eos # (Auto) (0.0-0.7) 10^3/uL Baso # (Auto) (0.0-0.1) 10^3/uL Abs Immat Gran (auto) (0.00-0.03) 10^3/uL Imm/Tot Granulo (auto) (0.0-0.5) % Sodium (136-145) mmol/L Potassium (3.5-5.1) mmol/L Chloride (98-107) mmol/L Carbon Dioxide (21.0-32.0) mmol/L Anion Gap BUN (7.0-18.0) mg/dL Creatinine (0.70-1.30) mg/dL Est GFR ( Amer) (>=60 mL/min/1.73m^2) Est GFR (Non-Af Amer) (>=60 mL/min/1.73m^2) BUN/Creatinine Ratio Glucose (74-106) mg/dL Lactate 0.6 (0.4-2.0) mmol/L Calcium (8.5-10.1) mg/dL Magnesium (1.8-2.4) mg/dL Total Bilirubin (0.2-1.0) mg/dL AST (15-37) U/L ALT (16-63) U/L Alkaline Phosphatase (46-116) U/L Total Protein (6.4-8.2) g/dL Albumin (3.4-5.0) g/dL Globulin g/dL Albumin/Globulin Ratio Urine Color (YELLOW) Urine Clarity (CLEAR) Urine pH (5.0-9.0) Ur Specific Lewis (1.005-1.025) Urine Protein (NEG/TRACE) mg/dL Urine Glucose (UA) (NEGATIVE) mg/dL Urine Ketones (NEGATIVE) mg/dL Urine Occult Blood (NEGATIVE) Urine Nitrite (NEGATIVE) Urine Bilirubin (NEGATIVE) Urine Urobilinogen (0.2-1.0) EU/dL Ur Leukocyte Esterase (NEGATIVE) Urine RBC (0-2) #/HPF Urine WBC (NONE SEEN) #/HPF Ur Squamous Epith Cells (NONE/RARE) #/LPF Urine Crystals (None Seen) #/HPF Urine Bacteria (NONE SEEN) #/HPF Urine Casts (NONE SEEN) #/LPF Coarse Granular Casts Urine Mucus (NONE SEEN) Ur Culture Indicated? Influenza Type A Ag Influenza Type B Ag SARS-CoV-2 Ag (CV2AG) (NEGATIVE) Imaging Data Chest x-ray: Attestation: I personally reviewed and interpreted this imaging study as follows: My impression: No cardiomegaly, pneumothorax, effusion, consolidation or infiltrate noted CT scan - head: Attestation: I have reviewed the pertinent imaging results. Radiologist's impression: The ventricles are symmetric and normal in appearance without evidence of hydrocephalus. No midline shift, mass effect or intracranial hemorrhage is identified. No abnormal extra-axial fluid collection is seen. Atrophy is noted. Mild mucosal thickening paranasal sinuses. Nasal septum deviated to the right. Mastoid air cells are clear. Clinical impression = no acute intracranial process. ECG Data Attestation: I personally reviewed and interpreted this ECG as follows: Interpretation: EKG interpretation:Emergency Department physician interpretation.Normal sinus rhythm at 86bpm. Normal axis, normal intervals and no ST segment elevation or depression. Discharge Plan Discharge Chief Complaint: Altered Mental Status Clinical Impression: Sepsis, Diabetic ulcer of foot associated with type 2 diabetes mellitus, with necrosis of muscle, Acute alteration in mental status Patient Disposition: [facility] Time of Disposition Decision: 21:00
[2025-03-04 19:49] LABS: SARS-CoV-2 Ag NEGATIVE (NEGATIVE)
[2025-03-04 19:52] LABS: Alanine Aminotransferase 13 U/L (16-63); Albumin Globulin Ratio 0.2; Albumin Level 1.5 g/dL (3.4-5.0); Alkaline Phosphatase 168 U/L (46-116); Anion Gap 14.5; Aspartate Amino Transferase 15 U/L (15-37); Blood Urea Nitrogen 40.0 mg/dL (7.0-18.0); Calcium 8.9 mg/dL (8.5-10.1); Carbon Dioxide 20.1 mmol/L (21.0-32.0); Chloride 110 mmol/L (98-107); Estimated GFR (African America 43 (>=60 mL/min/1.73m^2); Estimated GFR (Non-African Ame 35 (>=60 mL/min/1.73m^2); Globulin 6.8 g/dL; Glucose 124 mg/dL (74-106); Magnesium 1.7 mg/dL (1.8-2.4); Potassium 4.6 mmol/L (3.5-5.1); Sodium 140 mmol/L (136-145); Total Protein 8.3 g/dL (6.4-8.2)
--- NOTE | 2025-03-04 19:54 | XR_ITS ---
[facility] [place] [id number] Patient Name: JOEL STINSON MRN: [id number] date: 1960 Sex: M Assigned Patient Location: ER Current Patient Location: Accession/Order Number: [id number] Exam Date: 03/04/2025 20:00 Report Date: 03/05/2025 08:17 At the request of: MALINI LINARES Procedure: XR chest 1V PORTABLE AP RECUMBENT CHEST 1942 hours CLINICAL HISTORY: altered mentation COMPARISON: 10/06/2022 There is incomplete inspiration. The heart is within normal limits. There is no vascular congestion. No consolidation is noted. There is no sizable effusion or pneumothorax. The osseous structures, as visualized appear intact. XR/XR chest 1V IMPRESSION: NO ACUTE FINDINGS Impression dictated by: Jenni Inman M.D. 03/05/2025 8:17 AM Dictation Location: [place] [address] Electronically authenticated by: [id number] Y Date: 03/05/2025 08:17
[2025-03-04 19:57] LABS: Lactate/Lactic Acid 2.1 mmol/L (0.4-2.0)
--- OUTSIDE RECORDS SUMMARY | 2025-03-04 20:18 | XMS_ITS | Patient Health Record ---
Author Organization [facility] in [place] Address [address] [place] [address] Care Team Providers Care Sales Advisory Manager Name Role Phone Fidel Reis MD Primary Care Provider Unavailab America Modi Unavailable [phone] Jesus Bahena Unavailable [phone] Raghavendra Martins Unavailable [phone] Allergies Allergen (clinical drug ingredient) Drug/Non Drug Allergy documented on EMR Reaction Allergy Type Onset Date Status vancomycin Vancomycin Renal failure Drug Allergy Active Results Component Value Reference Range Notes VC SEGMENTAL PRESSURES (Not yet reviewed by provider) Interpretation: Performing Lab: Notes/Report: Source Facility: [place] [address] Vein Report Signed Patient: JOEL STINSON MR#: [id number] : 1960 Acct:[id number] Age/Sex: 63 / M ADM Date: 03/06/24 Loc: VC Attending Dr: Jesus Bahena D.P.M. Ordering Physician: Jesus Bahena D.P.M. Date of Service: 03/06/24 Procedure(s): VC SEGMENTAL PRESSURES Accession Number(s): [id number] cc: Jesus Bahena D.P.M.; Fidel Reis M.D. [place] [address] Patient Name: JOEL STINSON MRN: [facility]:[id number] date: 1960 Sex: M Assigned Patient Location: Current Patient Location: Accession/Order Number: [id number] Exam Date: 03/06/2024 11:00 Report Date: 03/06/2024 [...] Signed By: 03/06/24 1416 DD/ 12 TD/TT: Automobile Body Repairer: CBC AUTO DIFF (Not yet revie wed by provider) Interpretation: Performing Lab: Notes/Report: [facility] , White Blood Count 13.2 4.0-11.0 10 3/uL Red Blood Count3.254.70-6.10 10 6/uLHemoglobin8.114.0-18.0 g/iTGxepqtryuw96.9 42.0-54.0 %Mean Corpuscular Dpqkbp76.880.0-94.0 fLMean Corpuscular Hemoglobin 24.925.9-34.0 pgMean Corpuscular HGB Conc30.129.9-35.2 g/dLRed Cell Distribution Width14.011.0-15.0 %Platelet Odiez163304-662 10 3/uLMean Platelet Volume8.99.5- 13.5 fLNeutrophils Percent Auto70.243.0-75.0 %Lymphocytes Percent Auto12.220.5- 60.0 %Monocytes Percent Auto7.31.7-12.0 %Eosinophils Percent Auto8.80.9-7.0 % Basophils Percent Auto0.60.2-2.0 %Immature Granulocytes Pct Auto0.90.0-0.5 % Neutrophils Absolute Auto9.31.4-6.5 10 3/uLLymphocytes Absolute Auto1.61.2-3.8 10 3/uLMonocytes Absolute Auto1.00.3-0.8 10 3/uLEosinophils Absolute Auto1.20.0- 0.7 10 3/uLBasophils Absolute Auto0.10.0-0.1 10 3/uLImmature Granulocytes Abs Auto0.120.00-0.03 10 3/uLPerforming Lab:see noteML - [facility] LB PROF CHEM 8 (BAS METB) (Not yet reviewed by provider) Interpretation: Performing Lab: Notes/Report: [facility] ,Pwfzod899794-537 mmol/LPotassium4.23.5-5.1 mmol/WWqgrrnuo07406-222 mmol/LCarbon Qesxqji27.221.0-32.0 mmol/LAnion Gap13.0Auicrtk5259-410 mg/dLBlood Urea Nitrogen 35.07.0-18.0 mg/dLCreatinine2.330.70-1.30 mg/dLEstimated GFR ( Jqsqfcf22 >=60 mL/min/1.73m 2Estimated GFR (Non- Ame29>=60 mL/min/1.73m 2BUN Creatinine Ratio15.8Pcaazsw7.78.5-10.1 mg/dLPerforming Lab:see note - [facility] LBECG 12 lead (Not yet reviewed by provider) Interpretation: Performing Lab: Notes/Report: Source Facility: [facility]-[address] [place] [address] [place] [address] Electrocardiograph Report Signed Patient: JOEL STINSON MR#: [id number] : 1960 Acct:[id number] Age/Sex: 63 / M ADM Date: 03/10/24 Loc: PST Attending Dr: Jesus Bahena D.P.M. Ordering Physician: Jesus Bahena D.P.M. Date of Service: 03/10/24 Procedure(s): ECG 12 lead Accession Number(s): [id number] cc: [facility] Test Date: 2024-03-10 Pat Name: JOEL STINSON Department: Room: - Gender: Male Calciner Feeder: : 1960 Requested By: JESUS BAHENA Order Number: [id number] Reading MD: AVELINO ORTEGA Measurements Intervals [place] Rate: 53 P: 86 SC: 179 QRS: 8 QRSD: 110 T: 34 QT: 451 QTc: 425 Interpretive Statements SINUS BRADYCARDIA Compared to ECG 11/25/2022 10:12:24 Sinus rhythm no longer present Electronically Signed On 03-10-2024 17:24:37 EST by AVELINO ORTEGA Dictated By: Avelino Ortega D.O. Signed By: 03/10/24 1724 DD/ 1037 TD/TT: Automobile Body Repairer:CBC AUTO DIFF (Not yet reviewed by provider) Interpretation: Performing Lab: Notes/Report: [facility] ,White Blood Count13.14.0-11.0 10 3/uLRed Blood Count2.794.70-6.10 10 6/uL Hemoglobin6.914.0-18.0 g/dLRESULTS CALLED TO KRZYSZTOF FREED RNHematocrit22.9 42.0-54.0 %RESULTS CALLED TO KRZYSZTOF FREED RNMean Corpuscular Nnwkxm63.180.0- 94.0 fLMean Corpuscular Nvdpdxfmnx49.725.9-34.0 pgMean Corpuscular HGB Conc30.1 29.9-35.2 g/dLRed Cell Distribution Width15.311.0-15.0 %Platelet Eorjx727838-394 10 3/uLMean Platelet Volume8.99.5-13.5 fLNeutrophils Percent Auto75.843.0-75.0 % Lymphocytes Percent Auto10.220.5-60.0 %Monocytes Percent Auto8.11.7-12.0 % Eosinophils Percent Auto5.10.9-7.0 %Basophils Percent Auto0.40.2-2.0 %Immature Granulocytes Pct Auto0.40.0-0.5 %Neutrophils Absolute Auto9.91.4-6.5 10 3/uL Lymphocytes Absolute Auto1.31.2-3.8 10 3/uLMonocytes Absolute Auto1.10.3-0.8 10 3/uLEosinophils Absolute Auto0.70.0-0.7 10 3/uLBasophils Absolute Auto0.10.0-0.1 10 3/uLImmature Granulocytes Abs Auto0.050.00-0.03 10 3/uLPerforming Lab:see noteML - [facility] LBFERRITIN (Not yet reviewed by provider) Interpretation: Performing Lab: Notes/Report: [facility] ,Sdvpnfsl737.026.0-388.0 ng/mLPerforming Lab:see noteML - [facility] LBIRON AND TIBC (Not yet reviewed by provider) Interpretation: Performing Lab: Notes/Report: [facility] ,Iron17.065.0-175.0 ug/dLTotal Iron Binding Uimounvs889.0250.0-450.0 ug/dL Percent Iron Wpbgoabfbf26.7Performing Lab:see note - [facility] LB Packed Red Blood Cells (Not yet reviewed by provider) Interpretation: Performing Lab: Notes/Report:Packed Red Blood Cells [id number] AN RC TRANSFUSED 06/08/24 1035 [id number] AN RC TRANSFUSED 06/08/24 1220 Type and Screen (Not yet reviewed by provider) Interpretation: Performing Lab: Notes/Report: [facility] ,Blood TypeA NegativeAntibody ScreenNEGATIVEIRON AND TIBC (Not yet reviewed by provider) Interpretation: Performing Lab: Notes/Report: [facility] ,Iron18.065.0-175.0 ug/dLTotal Iron Binding Faemdwrk043.0250.0-450.0 ug/dL Percent Iron Ploflsrmrv47.9Performing Lab:see noteML - [facility] LB FERRITIN (Not yet reviewed by provider) Interpretation: Performing Lab: Notes/Report: [facility] ,Hfqkmnbp098.026.0-388.0 ng/mLPerforming Lab:see note - [facility] LBIRON AND TIBC (Not yet reviewed by provider) Interpretation: Performing Lab: Notes/Report: [facility] ,Iron28.065.0-175.0 ug/dLTotal Iron Binding Wsowewrj507.0250.0-450.0 ug/dL Percent Iron Brwbukgmeg91.0Performing Lab:see noteML - [facility] LB CBC AUTO DIFF (Not yet reviewed by provider) Interpretation: Performing Lab: Notes/Report: [facility] ,White Blood Count13.54.0-11.0 10 3/uLRed Blood Count2.784.70-6.10 10 6/uL Hemoglobin7.414.0-18.0 g/zNRfdsswnwzi57.242.0-54.0 %RESULTS CALLED TO CHEYENNE HUDSON,RNMean Corpuscular Lqtckc15.580.0-94.0 fLMean Corpuscular Eyiukrktoi09.6 25.9-34.0 pgMean Corpuscular HGB Conc31.929.9-35.2 g/dLRed Cell Distribution Width14.311.0-15.0 %Platelet Xyaup817649-809 10 3/uLMean Platelet Volume8.89.5- 13.5 fLNeutrophils Percent Auto68.643.0-75.0 %Lymphocytes Percent Auto13.320.5- 60.0 %Monocytes Percent Auto7.81.7-12.0 %Eosinophils Percent Auto9.50.9-7.0 % Basophils Percent Auto0.30.2-2.0 %Immature Granulocytes Pct Auto0.50.0-0.5 % Neutrophils Absolute Auto9.31.4-6.5 10 3/uLLymphocytes Absolute Auto1.81.2-3.8 10 3/uLMonocytes Absolute Auto1.10.3-0.8 10 3/uLEosinophils Absolute Auto1.30.0- 0.7 10 3/uLBasophils Absolute Auto0.00.0-0.1 10 3/uLImmature Granulocytes Abs Auto0.070.00-0.03 10 3/uLPerforming Lab:see noteML - [facility] LB PROF 14(COMP METB) (Not yet reviewed by provider) Interpretation: Performing Lab: Notes/Report: [facility] ,Ryeizx341113-440 mmol/LPotassium4.03.5-5.1 mmol/ZAdblafie75847-105 mmol/LCarbon Zxuhyga44.021.0-32.0 mmol/LAnion Gap13.8Wxmoahe71762-934 mg/dLBlood Urea Fbrvkjyg35.07.0-18.0 mg/dLCreatinine1.780.70-1.30 mg/dLEstimated GFR ( Qsnxhbm77>=60 mL/min/1.73m 2Estimated GFR (Non- Ame39>=60 mL/min/1.73m 2 BUN Creatinine Ratio19.0Pfcpmbs5.78.5-10.1 mg/dLBilirubin Total0.20.2-1.0 mg/dL Aspartate Amino Cydzpgyacas6478-99 U/LAlanine Jlkykcdtqmfqdgpe6429-13 U/L Alkaline Vzcyntunzkk23089-048 U/LTotal Protein7.86.4-8.2 g/dLAlbumin Level1.7 3.4-5.0 g/dLGlobulin6.1Albumin Globulin Ratio0.3Performing Lab:see noteML - [facility] LBCRP (Not yet reviewed by provider) Interpretation: Performing Lab: Notes/Report: [facility] ,C Reactive Drqqktp21.73<=0.50 mg/dLPerforming Lab:see noteML - [facility] LBFERRITIN (Not yet reviewed by provider) Interpretation: Performing Lab: Notes/Report: [facility] ,Hdjvcfsz297.026.0-388.0 ng/mLPerforming Lab:see note - [facility] LBIRON AND TIBC (Not yet reviewed by provider) Interpretation: Performing Lab: Notes/Report: [facility] ,Iron24.065.0-175.0 ug/dLTotal Iron Binding Zqgcsaop890.0250.0-450.0 ug/dL Percent Iron Ddavtzmuqb13.1Performing Lab:see noteML - [facility] LB PROF CHEM 8 (BAS METB) (Not yet reviewed by provider) Interpretation: Performing Lab: Notes/Report: [facility] ,Abjybs093251-925 mmol/LPotassium3.63.5-5.1 mmol/VCicofapt75935-647 mmol/LCarbon Zozkevy56.421.0-32.0 mmol/LAnion Gap12.3Rzkfpza97976-213 mg/dLBlood Urea Ekxjyets67.07.0-18.0 mg/dLCreatinine1.640.70-1.30 mg/dLEstimated GFR ( Mdvqtvq91>=60 mL/min/1.73m 2Estimated GFR (Non- Ame43>=60 mL/min/1.73m 2 BUN Creatinine Ratio13.6Cxrjcfl2.38.5-10.1 mg/dLPerforming Lab:see noteML - [facility] LBPROF CHEM 8 (BAS METB) (Not yet reviewed by provider) Interpretation: Performing Lab: Notes/Report: [facility] ,Iiryfa777632-642 mmol/LPotassium4.13.5-5.1 mmol/DFtntioxz77716-204 mmol/LCarbon Tweuhkf80.521.0-32.0 mmol/LAnion Gap11.2Dofnytz42373-160 mg/dLBlood Urea Hxnabgwk98.07.0-18.0 mg/dLCreatinine2.050.70-1.30 mg/dLEstimated GFR ( Ufftbms35>=60 mL/min/1.73m 2Estimated GFR (Non- Ame33>=60 mL/min/1.73m 2 BUN Creatinine Ratio12.0Dlpkikf7.98.5-10.1 mg/dLPerforming Lab:see noteML - [facility] LBCBC AUTO DIFF (Not yet reviewed by provider) Interpretation: Performing Lab: Notes/Report: [facility] ,White Blood Count12.74.0-11.0 10 3/uLRed Blood Count2.814.70-6.10 10 6/uL Hemoglobin7.414.0-18.0 g/mMOhzppmozpl58.842.0-54.0 %RESULTS CALLED TO ANGELICA RUBALCAVA RN at 1219Mean Corpuscular Mansaz55.780.0-94.0 fLMean Corpuscular Gmgpppihrx01.325.9-34.0 pgMean Corpuscular HGB Conc31.129.9-35.2 g/dLRed Cell Distribution Width14.511.0-15.0 %Platelet Dazfu703642-248 10 3/uLMean Platelet Volume8.79.5-13.5 fLNeutrophils Percent Auto69.943.0-75.0 %Lymphocytes Percent Auto12.920.5-60.0 %Monocytes Percent Auto7.21.7-12.0 %Eosinophils Percent Auto 9.00.9-7.0 %Basophils Percent Auto0.40.2-2.0 %Immature Granulocytes Pct Auto0.6 0.0-0.5 %Neutrophils Absolute Auto8.91.4-6.5 10 3/uLLymphocytes Absolute Auto1.6 1.2-3.8 10 3/uLMonocytes Absolute Auto0.90.3-0.8 10 3/uLEosinophils Absolute Auto1.20.0-0.7 10 3/uLBasophils Absolute Auto0.10.0-0.1 10 3/uLImmature Granulocytes Abs Auto0.080.00-0.03 10 3/uLPerforming Lab:see noteML - [facility] LBPROF CHEM 8 (BAS METB) (Not yet reviewed by provider) Interpretation: Performing Lab: Notes/Report: [facility] ,Lvotol832227-144 mmol/LPotassium3.83.5-5.1 mmol/KBtbzurua79259-695 mmol/LCarbon Hbekevp53.521.0-32.0 mmol/LAnion Gap10.0Juyhcep63899-570 mg/dLBlood Urea Rdpliutw18.07.0-18.0 mg/dLCreatinine2.120.70-1.30 mg/dLEstimated GFR ( Omzqdeb29>=60 mL/min/1.73m 2Estimated GFR (Non- Ame32>=60 mL/min/1.73m 2 BUN Creatinine Ratio14.2Edaxdqp2.78.5-10.1 mg/dLPerforming Lab:see noteML - [facility] LBFERRITIN (Not yet reviewed by provider) Interpretation: Performing Lab: Notes/Report: [facility] ,Xfuusmhq858.026.0-388.0 ng/mLPerforming Lab:see note - [facility] LBCBC AUTO DIFF (Not yet reviewed by provider) Interpretation: Performing Lab: Notes/Report: [facility] ,White Blood Count13.84.0-11.0 10 3/uLRed Blood Count2.814.70-6.10 10 6/uL Hemoglobin7.314.0-18.0 g/qHMywfreormg25.442.0-54.0 %RESULTS CALLED TO ANGELICA RUBALCAVA RNMean Corpuscular Innprv79.380.0-94.0 fLMean Corpuscular Csodrtramv00.0 25.9-34.0 pgMean Corpuscular HGB Conc31.229.9-35.2 g/dLRed Cell Distribution Width14.311.0-15.0 %Platelet Zcsfm942220-612 10 3/uLMean Platelet Volume8.99.5- 13.5 fLNeutrophils Percent Auto74.543.0-75.0 %Lymphocytes Percent Auto11.520.5- 60.0 %Monocytes Percent Auto8.21.7-12.0 %Eosinophils Percent Auto5.00.9-7.0 % Basophils Percent Auto0.40.2-2.0 %Immature Granulocytes Pct Auto0.40.0-0.5 % Neutrophils Absolute Auto10.31.4-6.5 10 3/uLLymphocytes Absolute Auto1.61.2-3.8 10 3/uLMonocytes Absolute Auto1.10.3-0.8 10 3/uLEosinophils Absolute Auto0.70.0- 0.7 10 3/uLBasophils Absolute Auto0.10.0-0.1 10 3/uLImmature Granulocytes Abs Auto0.060.00-0.03 10 3/uLPerforming Lab:see noteML - [facility] LBCBC AUTO DIFF (Not yet reviewed by provider) Interpretation: Performing Lab: Notes/Report: [facility] ,White Blood Count12.24.0-11.0 10 3/uLRed Blood Count2.714.70-6.10 10 6/uL Hemoglobin6.714.0-18.0 g/dLRESULTS CALLED TO ANGELICA RUBALCAVA RN at 1047Hematocrit 22.442.0-54.0 %RESULTS CALLED TO ANGELICA RUBALCAVA RN at 1047Mean Corpuscular Volume 82.780.0-94.0 fLMean Corpuscular Iywwuhiunl58.725.9-34.0 pgMean Corpuscular HGB Conc29.929.9-35.2 g/dLRed Cell Distribution Width15.511.0-15.0 %Platelet Count 399735-065 10 3/uLMean Platelet Volume9.09.5-13.5 fLNeutrophils Percent Auto72.6 43.0-75.0 %Lymphocytes Percent Auto12.920.5-60.0 %Monocytes Percent Auto8.41.7- 12.0 %Eosinophils Percent Auto5.50.9-7.0 %Basophils Percent Auto0.30.2-2.0 % Immature Granulocytes Pct Auto0.30.0-0.5 %Neutrophils Absolute Auto8.91.4-6.5 10 3/uLLymphocytes Absolute Auto1.61.2-3.8 10 3/uLMonocytes Absolute Auto1.00.3-0.8 10 3/uLEosinophils Absolute Auto0.70.0-0.7 10 3/uLBasophils Absolute Auto0.00.0- 0.1 10 3/uLImmature Granulocytes Abs Auto0.040.00-0.03 10 3/uLPerforming Lab:see noteML - [facility] LBErythrocyte Sedimentation Rate (Not yet reviewed by provider) Interpretation: Performing Lab: Notes/Report: [facility] ,Erythrocyte Sedimentation Rate92<=20 mm/hrPerforming Lab:see noteML - [facility] LBPROF CHEM 8 (BAS METB) (Not yet reviewed by provider) Interpretation: Performing Lab: Notes/Report: [facility] ,Gixfct378939-029 mmol/LPotassium5.03.5-5.1 mmol/CVwotzpfl49819-713 mmol/LCarbon Uklbcmt23.321.0-32.0 mmol/LAnion Gap14.6Tuworqs22163-824 mg/dLBlood Urea Rggvicfm87.07.0-18.0 mg/dLCreatinine1.940.70-1.30 mg/dLEstimated GFR ( Qavknvy12>=60 mL/min/1.73m 2Estimated GFR (Non- Ame35>=60 mL/min/1.73m 2 BUN Creatinine Ratio18.1Wehpkzb6.88.5-10.1 mg/dLPerforming Lab:see noteML - [facility] LBCRP (Not yet reviewed by provider) Interpretation: Performing Lab: Notes/Report: [facility] ,C Reactive Protein8.37<=0.50 mg/dLPerforming Lab:see noteML - [facility] LBErythrocyte Sedimentation Rate (Not yet reviewed by provider) Interpretation: Performing Lab: Notes/Report: [facility] ,Erythrocyte Sedimentation Fxmz492<=20 mm/hrPerforming Lab:see note - [facility] LBCBC AUTO DIFF (Not yet reviewed by provider) Interpretation: Performing Lab: Notes/Report: [facility] ,White Blood Count12.54.0-11.0 10 3/uLRed Blood Count3.074.70-6.10 10 6/uL Hemoglobin8.014.0-18.0 g/hLLjzrzdyzoo79.042.0-54.0 %Mean Corpuscular Qlcicx29.4 80.0-94.0 fLMean Corpuscular Leozyhisxx24.125.9-34.0 pgMean Corpuscular HGB Conc 32.029.9-35.2 g/dLRed Cell Distribution Width13.811.0-15.0 %Platelet Hnhrs401 150-450 10 3/uLMean Platelet Volume9.09.5-13.5 fLNeutrophils Percent Auto69.2 43.0-75.0 %Lymphocytes Percent Auto12.120.5-60.0 %Monocytes Percent Auto7.71.7- 12.0 %Eosinophils Percent Auto10.10.9-7.0 %Basophils Percent Auto0.50.2-2.0 % Immature Granulocytes Pct Auto0.40.0-0.5 %Neutrophils Absolute Auto8.61.4-6.5 10 3/uLLymphocytes Absolute Auto1.51.2-3.8 10 3/uLMonocytes Absolute Auto1.00.3-0.8 10 3/uLEosinophils Absolute Auto1.30.0-0.7 10 3/uLBasophils Absolute Auto0.10.0- 0.1 10 3/uLImmature Granulocytes Abs Auto0.050.00-0.03 10 3/uLPerforming Lab:see noteML - [facility] LB Reason For Referral No Information Medications Medication SIG (Take, Route, Frequency, Duration) Notes Start Date End Date Status hydrOXYzine HCl 50 MG TAKE 1 TABLET BY M OUT 4 TIMES DAILY NEEDED FOR ITCHING Oral; [...] Administration Date Status Comme nts Flu, Fluarix (28120) 6 mos a nd older, single-dose (5988-8074) Unknown 02/11/2023 Administered Social History Tobacco Use: Social History Observation Description Date Details (start date - stop date) Never Smoker NA - NA Tobacco Control (Standard) Question Answer Notes Tobacco use: Nonsmoker Problems Problem Type SNOMED Code ICD Code Onset Dates Problem Status W/U Status Risk Notes Problem Anemia (793723052) Anemia, unspecified (D 64.9) ActiveconfirmedProblemFoot ulcer due to type 2 diabetes mellitus (8939468394714) Type 2 diabetes mellitus with foot ulcer (E11.621)ActiveconfirmedProblemPressure ulcer of right ankle, stage 2 (L89.512)ActiveconfirmedProblemChronic ulcer of foot (288607021)Non-pressure chronic ulcer of left heel and midfoot with fat layer exposed (L97.422)ActiveconfirmedProblemNon-pressure chronic ulcer of other part of right lower leg with necrosis of muscle (L97.813)ActiveconfirmedProblem Obesity (784660602)Obesity (E66.9)ActiveconfirmedProblemHypertension (77619538) HTN (hypertension) (I10)ActiveconfirmedProblemObstructive sleep apnea syndrome (73114984)JAE (obstructive sleep apnea) (G47.33)ActiveconfirmedProblemNeurogenic bladder (014008192)Neurogenic bladder (N31.9)ActiveconfirmedProblemIron deficiency anemia (56587301)Iron deficiency anemia (D50.9)ActiveconfirmedProblem Leukocytosis (383658694)Leukocytosis (D72.829)ActiveconfirmedProblemSkin ulcer associated with diabetes mellitus (796049520)DM type 2 causing leg or foot ulcer (E11.622)ActiveconfirmedProblemParaplegia (27276499)Paraplegic spinal paralysis (G82.20)ActiveconfirmedProblemLeukocytosis (126086317)Elevated WBCs (D72.829) ActiveconfirmedProblemChronic paraplegia (737456095)Chronic paraplegia (G82.20) ActiveconfirmedProblemChronic ulcer of foot (036917834)Non-pressure chronic ulcer of right heel and midfoot with fat layer exposed (L97.412)Activeconfirmed ProblemSkin ulcer of right knee with fat layer exposed (L97.812)Activeconfirmed ProblemDecubitus ulcer of left leg, stage 3 (L89.893)ActiveconfirmedProblem Decubitus ulcer of right heel, unstageable (L89.610)ActiveconfirmedProblem Pressure injury of right heel stage II (disorder) (48236859629074)Decubitus ulcer of right heel, stage 2 (L89.612)ActiveconfirmedProblemMalnutrition of moderate degree (Oswald: 60% to less than 75% of standard weight) (47139322) Moderate protein malnutrition (E44.0)ActiveconfirmedProblemStasis edema with ulcer of both lower extremities (I87.313)ActiveconfirmedProblemChronic ulcer of ankle (738249627)Non-pressure chronic ulcer of right ankle with other specified severity (L97.318)ActiveconfirmedProblemNon-pressure chronic ulcer of left heel and midfoot with other specified severity (L97.428)ActiveconfirmedProblemNon- pressure chronic ulcer of other part of left foot with other specified severity (L97.528)ActiveconfirmedProblemNon-pressure chronic ulcer of other part of right lower leg with other specified severity (L97.818)ActiveconfirmedProblemPressure injury of left heel (disorder) (14248325362444)Pressure injury of left heel, unstageable (L89.620)ActiveconfirmedProblemAnkle ulcer (065015314)Ischemic ulcer of right ankle with fat layer [...] Encounter Location Date Provider Diagnosis Pulmonary Medicine [place] [address] [place] [address] 06/21/2024 Raghavendra Martins JAE (obstructive sleep apnea) G47.33 ; Chronic paraplegia G82.20 and Obesity E66.9 [facility] [address] [place] [address] 03/16/2024 [facility] [address] [facility] [address]/03/2024 [facility] [address] [facility] [address]/[facility] [address] [facility] [address]/polava [facility] Oncology [address] [facility] [address]/poformerly [facility] [place] (PODIATRY)[address] [place] [address]/eter [facility] [place] [place] (PODIATRY)[address] [place] [address] Pul[facility] Medicine [address] [place] [address]/20/2025 [facility] Medicine [address] [place] [address] 11/21/2024Mandiechase Martins Assessments Encounter Date Diagnosis (ICD Code) Assessment Notes Treatment Notes Treatment Clinical Notes Section Notes 06/21/2024 JAE (obstructive sleep apnea) (I CD-10 - G47.33) Baqp-dx-vyfp encounter performed with the patient to document continued need for PAP therapy. -DME:[facility]-up[facility]jd study 03/14/2021: AHI 79; Titration: CPAP 98meC8V, though BiPAP also used during the study-Compliance was reviewed from 05/20/2024 - 06/18/2024-Total days used: (100%)-Total of all days >4 hours of use: 30 (100%)-Current model, mode, & pressure(s): AirSense 11 AutoSet C PAP 76qgN9K-Vcvvvzqg AHI: 13.7-Median air leak: 34.6L/min-Mask/harness fitting: Okay even with julien-Sleep quality: Wakes up once a night d/t pain-Daytime hypersomnolence: Not waking up feeling refreshed in the morning-Recommendations: He has superb compliance, but AHI is suboptimal @ 13.7 (goal <5). This is despite the patient losing 25# since last visit. Previously was on BiPAP and more recently CPAP 85hjC8D. Currently at 24fyI4G. Discussed several options including increasing pressure to 13caE5O or changing to an auto-CPAP. Patient voiced he would be okay with either option. Will try auto-CPAP to start 10- 30bvL2A - if unable to do so, will change pressure to 26srP8W and recheck compliance in 1 month. He was counseled to continue using it every night and with naps.-This rsmu-zr-uelo visit comes with the recommendation that the [...] uremic leon. No change to soaps, detergents, computer tester, body wash, etc. Diphenhydramine and hydroxyzine did not help. Question ferrous sulfate - this was the most recent change to his regimen, and there are case reports of itching/rashes associated with it. I strongly suggested he discuss this with Dr. River and/orhis PCP, or referral to an field representative. Plan Of Treatment Pending Test Test Name Order Date CHROMOSOME BONE MARROW 10/11/2023 BONE MARROW 10/11/2023 Surgical Pathology ([facility]) Flow Cytometry Bone Marrow 10/11/2023 DNA AND RNA EXTRACT AND HOLD 10/11/2023 CBC AUTO DIFF 10/26/2023 CBC AUTO DIFF 09/29/2023 CBC AUTO DIFF 10/12/2023 CBC AUTO DIFF 07/22/2023 CBC AUTO DIFF [...] FERRITIN 12/02/2023 FERRITIN 02/14/2024 FERRITIN 10/26/2023 FERRITIN 08/10/2024 FERRITIN 05/30/2024 FERRITIN 09/11/2024 FERRITIN 11/28/2024 IRON AND TIBC 11/28/2024 IRON AND TIBC 08/10/2024 IRON AND TIBC 09/11/2024 IRON AND TIBC 05/30/2024 IRON AND TIBC 02/14/2024 IRON AND TIBC 10/26/2023 IRON AND TIBC 12/02/2023 IRON AND TIBC 09/29/2023 IRON AND TIBC 08/31/2023 PROF 14(COMP METB) 10/26/2023 PROF 14(COMP METB) 09/26/2024 PROF CHEM 8 (BAS METB) 11/28/2024 PROF CHEM 8 (BAS METB) 09/29/2023 PROF CHEM 8 (BAS METB) 08/31/2023 PROF CHEM 8 (BAS METB) 07/22/2023 PROF CHEM 8 (BAS METB) 12/02/2023 PROF CHEM 8 (BAS METB) 03/10/2024 PROF CHEM 8 (BAS METB) 05/30/2024 PROF CHEM 8 (BAS METB) 09/11/2024 PROF CHEM 8 (BAS METB) 08/10/2024 AFB Specimen Processing 07/08/2023 Acid Fast Smear [...] RIVER , 03/13/2025 10:30:00 AM, [address] [place], [address], Insurance Providers Payer Name Payer Address Payer Phone Subscriber Number Group Number Insured Name Patient Relationship to Insured Coverage Start Date Coverage End Date [place] [address] [place] [address] [id number] Lorenzo Stinson - patient is the [id number] 2006 Medical (General) History Medical History History [...]
--- OUTSIDE RECORDS SUMMARY | 2025-03-04 20:18 | XMS_ITS | CCD ---
Author Organization [facility] Care Team Providers Care Brass Chaser Name Role Phone WESTONMICHAELA Unavailable Unavailable NADERER, [...] NADERER, DR FIDEL Tellez Primary Care Unavailable [place] SIDNEY, DR KHADAR Edwards Consulting Unavailable BRAR, DR CATHY Edwards Consulting Unavailable MD Fidel Abbott Primary Care Provider MD Cathy Brar Attending Provider Fidel Abbott MD Primary Care Provider MD Fidel Abbott Primary Care Provider MD Cathy Brar Attending Provider [phone] Fidel Abbott MD Primary Care Provider SHELLY [...] Physician Milena NAZARIO, Fidel Primary Care Provider [phone] Fidel Abbott MD Unavailable Fidel Abbott MD Primary Care Provider MD Fidel Abbott Primary Care Provider MD Cathy Brar Attending Provider CRISTIANA Moffett Attending Provider CRISTIANA Hernandes Attending Provider Khadar Guerrero Referring Unavailable MILENA, FIDEL Primary Care Unavailable FDIEL ABBOTT Referring Unavailable Fidel Abbott MD Primary [...] Provider Milena NAZARIO, Fidel Primary Care Provider [phone] Nina River MD Attending Provider Jesus Hernandes DPM Attending Provider Cathy Brar MD Attending Provider Moisés Morelos MD Attending Provider Jesus Hernandes DPM Referring Provider Milena NAZARIO, Fidel Primary Care Provider Nina River MD Attending Provider Jesus Hernandes DPM Attending Provider Cathy Brar MD Attending Provider [phone] Moisés Morelos MD Attending Provider [phone] Jesus Hernandes DPM Referring Provider [phone] Fidel Abbott MD Attending Provider Brar, Cathy [...] of OnsetReaction(s) Facility (13 sources)Vancomycin; Translations: [VANCOMYCIN]Drug Cajokjg77-71-7435Wzjc kidneys [facility] Repository (20 sources)VancomycinDrug Iguajwy88-63-1616Asvgz, Unknown, Other (See Comments) [facility] (20 sources)omadacycline; Translations: [omadacycl]Drug -[id number] pain (finding)[facility] HospitalComment on above:kidney pain (10 sources)ferrous sulfate; Translations: [ferrous sulfate]Drug Allergy 34-95-1090CxmqjjwFnwrivfybOhioHealth [facility] (1 source)VancomycinDrug Hdzgsic71-43-4919DkhdqpdxjC[facility] Medications Current Medications MedicationDrug Class(es)DatesSig (Normalized)Sig (Original)Acetaminophen (1 source)Start: 43-55-8218oqfeldwumgyig (TYLENOL) tablet 650 mgatenolol 100 mg oral tablet (20 sources)beta-Adrenergic BlockerStart: 11-99-2750mgzt 100 mg by mouth once dyxzo237 mg, Oral, DAILY, First dose on Wed06/23/22 at 0900, Until Discontinued Start: 06-29-2016 End: 69-50-9863xxjw 1 tablet by mouth once daily in the morningAtenolol 100 mg Tablet Active 100 MG PO Every morning November 02, 2017 11:00pm HTN Complies with drug therapy End: 89-17-5902pcmy 2 tablets by mouth once dailyatenolol (TENORMIN) 50 MG tablet Take 100 mg by mouth daily. 0 06/26/2022 Discontinued (Stop Takingat Discharge)atorvastatin 40 mg oral tablet (20 sources)HMG-CoA Reductase InhibitorStart: 51-85-8229fsqo 1 tablet by mouth once dailyatorvastatin 40 mg Tab 40 mg = 1 tab(s), Oral, Daily Start Date: 01/15/25 Status: Ordered Repeat number: 1Start: 04-06-2023 End: 68-82-0895cwrx 1 tablet by mouth in the morningatorvastatin (Lipitor) 40 MG tablet Indications: Dyslipidemia TAKE 1 TABLET BY MOUTH IN THE CSZLBFB23 tablet 5 11/22/2024 Activecitalopram 40 mg oral tablet (20 sources)Serotonin Reuptake InhibitorStart: 93-47-3372eiim 40 mg by mouth once daily40 mg, Oral, DAILY, First dose on Wed06/23/22 at 0900, Until DiscontinuedStart: 09-22-2016 End: 98-84-5537yqdx 1 tablet by mouth once daily in the morningCitalopram (Celexa) 40 mg Tablet Active 40 MG PO Every morning December 06, 2016 11:00pm Depression Complies with drug therapy End: 81-02-7892kbap 2 tablets by mouth once dailycitalopram (CELEXA) 20 MG tablet Take 40 mg by mouth daily 0 06/26/2022 Discontinued (Stop Taking at Discharge)clindamycin 300 mg oral capsule (15 sources)Lincosamide AntibacterialStart: 05-13-2023 End: 67-06-6273ozqb 1 capsule by mouth in the morning, [...] capsule 0 05/13/2023 05/23/2023 ActiveStart: 06-26-2022 End: 47-04-4023okxj 1 capsule by mouth three times dailyclindamycin (CLEOCIN) 300 MG capsule Take 1 capsule by mouth 3 times daily for 10 days 30 capsule 0 06/26/2022 07/06/2022 ActiveStart: 06-23-2022 End: 09-16-7142kkjomacdvia (CLEOCIN) 600 mg in dextrose 5 % 50 mL IVPBStart: 07-28-2018 End: 35-98-7021Szxxaikjrws Hcl 150 mg Capsule Discontinued July 27, 2018 11:00pm November 17, 2018 9:14amStart: 07-28-2018 End: 13-83-3623Mcoazxibbkh Hcl Discontinued July 28, 2018 12:00am November 17, 2018 10:14amCMC-Calcium Alginate-Silver (TEGADERM ALGINATE AG DRESSING) 4 X 5 PADS (3 sources)Start: 60-54-1177ZPK-Calcium Alginate-Silver (TEGADERM ALGINATE AG DRESSING) 4 X 5 PADS Apply 1 each topically daily Right ankle and foot open wounds. Then cover with Kerlex and Olga 25 each 3 06/26/2022 ActiveGauze Pads & Dressings (KERLIX GAUZE ROLL MEDIUM) MISC (3 sources)Start: 53-39-6766Fmobr Pads & Dressings (KERLIX GAUZE ROLL MEDIUM) MISC 2 each by Does not apply route daily 96 each 2 06/26/2022 ActiveglipiZIDE 10 mg oral tablet (20 sources)SulfonylureaStart: 06-30-2018 End: 59-19-9309etbk 1 tablet by mouth twice dailyGlipizide 10 mg Tablet Active 10 MG PO Twice daily June 29, 2018 11:00pm Complies with drug therapy hydrOXYzine hydrochloride 50 mg oral tablet (20 sources)AntihistamineStart: 91-92-7429xagr 1 tablet by mouth four times daily as neededHydroxyzine Hcl 50 mg tablet Active 50 MG PO Four times daily as needed for itching January 30, 2025 10:58am Complies with drug therapyStart: 49-10-1991hqia 1 tablet by mouth four times daily as neededhydrOXYzine hydrochloride 50 mg oral tablet 50 mg = 1 tab(s), Oral, QID, TAKE 1 TABLET BY MOUTH 4 TIMES DAILY NEEDED FOR ITCHING Start Date: 01/15/25 Status: Ordered Repeat number: 1Start: 49-91-0652qhro 1 tablet by mouth four times daily as neededhydrOXYzine HCl (Atarax) 50 MG tablet Indications: Pruritus TAKE 1 TABLET BY MOUTH 4 TIMES DAILY ASNEEDED FOR ITCHING 30 tablet 09/22/2024 ActiveStart: 08-30-2024 End: 42-19-1067dquz 1 tablet by mouth once daily at bedtimeHydroxyzine Hcl 50 mg tablet Discontinued 50 MG PO Daily at bedtime August 29, 2024 11:00pm January 30, 2025 10:59amStart: 07-18-2024 End: 37-92-9220bhza 1 tablet by mouth four times daily as neededhydrOXYzine HCl (Atarax) 50 MG tablet Indications: Pruritus Take 1 tablet (50 mg) by mouth 4 (four)times a day as needed for itching 120 tablet 5 07/31/2024 ActiveStart: 02-01-2024 End: 43-28-5596agaf 1 tablet by mouth four times daily as neededhydrOXYzine HCl (Atarax) 50 MG tablet Indications: Pruritus TAKE 1 TABLET BY MOUTH 4 TIMES DAILY ASNEEDED FOR ITCHING 30 tablet 5 03/13/2024 ActiveStart: 01-17-2024 End: 93-74-2933stqy 1 tablet by mouth four times daily as neededhydrOXYzine HCl (Atarax) 50 MG tablet Indications: Pruritus Take 1 tablet (50 mg) by mouth 4 (four)times a day as needed for itching 30 tablet 2 01/17/2024 01/20/2024 DiscontinuedStart: 26-84-2048ijrv 1 tablet by mouth four times daily as needed hydrOXYzine HCl (Atarax) 25 MG tablet Indications: Pruritus Take 1 tablet (25 mg) by mouth 4 (four)times a day as needed for itching 120 tablet 3 11/18/2023 Activesodium hypochlorite 1.25 mg/ml topical spray (20 sources)Start: 52-66-5707fdyvux hypochlorite (DAKINS) 0.125 % SOLN external solution Apply topically daily Use on the Curlexgauze dressings changed once daily on the sacrococcygeal wound and buttock wounds 473 mL 2 06/26/2022 Active Start: 95-06-4553bgakvi hypochlorite (DAKINS) 0.125 % external solutionStart: 12-07-2016 End: 50-19-5853Xbwrvb Hypochlorite (Dakin's Solution) 0.25 % solution Discontinued 1 APPLIC TOPICAL Daily 473 2 October 06, 2017 11:00pm November 03, 2017 1:58pmIron (3 sources)Start: 06-22-9867ICRB 65MG TAB IRON 65MG TAB Start Date: 11/09/22 Status: Ordered Repeat number: 1Start: 82-58-1214MGRJ 65MG TAB IRON 65MG TAB Start Date: 11/09/22 Status: Orderedlisinopril 20 mg oral tablet (20 sources)Angiotensin Converting Enzyme InhibitorStart: 89-25-8940uxpc 1 tablet by mouth once dailyLisinopril 20 mg tablet Active 20 MG PO Daily January 30, 2025 12:00am Complies with drug therapyStart: 10-23-2024 End: 63-67-0939lhep 1 tablet by mouth once dailylisinopril 20 MG tablet Indications: Benign hypertension Take 1 tablet by mouth once daily 30 tablet 5 11/22/2024 ActiveStart: 55-83-2373nvgt 1 tablet by mouth once dailylisinopril 20 MG tablet Indications: Benign hypertension Take 1 tablet by mouth once daily 30 tablet 08/28/2024 ActiveStart: 11-89-2048bcad 1 tablet by mouth once daily lisinopril 20 MG tablet Indications: Benign hypertension (CMS/HCC) Take 1 tablet by mouth once daily 30 tablet 07/24/2024 ActiveStart: 03-70-3807fnwv 1 tablet by mouth once dailylisinopril 20 MG tablet Indications: Benign hypertension (CMS/HCC) Take 1 tablet by mouth once daily 30 tablet 05/22/2024 ActiveStart: 96-92-3197zzuj 10 mg by mouth once dailylisinopril (PRINIVIL,ZESTRIL) 20 mg tablet Take 10 mg by mouth daily. 01/01/2017 ActiveStart: 12-07-2016 End: 67-38-8032zaob 2 tablets by mouth once daily in the morningLisinopril 10 mg Tablet Discontinued 20 MG PO Every morning December 06, 2016 11:00pm January 30, 2025 10:58am HTNStart: 94-73-9933hjvr 20 mg by mouth once daily in the morningLisinopril Active 20 MG PO Every morning December 07, 2016 12:00amtake 0.5 tablet by mouth once dailylisinopril (PRINIVIL;ZESTRIL) 20 MG tablet Take 0.5 tablets by mouth daily 0 ActiveMultiple Vitamin (MULTIVITAMIN) TABS tablet (3 sources)Start: 84-63-1700qdtf 1 tablet by mouth once dailyMultiple Vitamin (MULTIVITAMIN) TABS tablet Take 1 tablet by mouth daily 30 tablet 2 06/27/2022 Activemultivitamin 1 tablet (1 source)Start: 38-21-8776tqrhjntvivir 1 tabletondansetron (ZOFRAN-ODT) disintegrating tablet 4 mg (1 source)Start: 16-17-5485aqycofmrtof (ZOFRAN-ODT) disintegrating tablet 4 mg predniSONE 50 mg oral tablet (3 sources)Start: 01-17-2024 End: 18-84-0955mrxn 1 tablet by mouth once dailypredniSONE (Deltasone) 50 MG tablet Indications: Pruritus Take 1 tablet (50 mg) by mouth Daily for 6 days 6 tablet 01/17/2024 01/23/2024 ActiveSITagliptin 100 mg oral tablet (20 sources)Dipeptidyl Peptidase 4 InhibitorStart: 07-29-2021 End: 77-93-6056jrxd 1 tablet by mouth once daily in the morningSitagliptin Phosphate (Januvia) 100 mg tablet Active 100 MG PO Every morning July 28, 2021 11:00pm Complies with drug olkfnfn6980 ml sodium chloride 9 mg/ml injection (6 [...] on Wed06/22/22 at 2100, U ntil DiscontinuedStart: 58-58-3397oeru 10 mL intravenously once as fygent38 mL, IntraVENous, PRN, Starting on Wed06/22/22 at 2018, Until Discontinued, Line Care, After every IV line useStart: 06-22-2022 End: .9 % sodium chloride bolus Completed/Discontinued Medications MedicationDrug Class(es)DatesSig (Normalized)Sig (Original)acetaminophen 325 mg / HYDROcodone bitartrate 5 mg oral tablet (20 sources)Opioid AgonistStart: 10-02-2024 End: 38-96-5802snwx 1 tablet by mouth every six hours as needed for pain Hydrocodone-Acetaminophen 5-325 mg tablet Discontinued 1 TAB PO Q6H as needed for pain 28 7 0 October 02, 2024 January 25, 2025 12:18pm Other acute postprocedural pain Other acute postprocedural painStart: 09-04-2021 End: 50-45-9751ftpu 1 tablet by mouth every six hours as needed for pain Hydrocodone-Acetaminophen 5-325 mg tablet Discontinued 1 TAB PO Q6H as needed for pain 28 7 0 September 08, 2022 February 06, 2023 9:43pm Sacral back pain Sacrococcygeal disorders, not elsewhere classifiedStart: 11-15-2017 End: 33-20-6290gvrd 1 tablet by mouth every six hours as needed for pain Hydrocodone-Acetaminophen 5-325 mg tablet Discontinued 1 TAB PO Q6H as needed for pain 28 7 0 November 15, 2017 November 20, 2017 11:00pm November 21, 2017 11:01pm Pressure ulcer of sacral region, stage 3amLODIPine (20 sources)Dihydropyridine Calcium Channel BlockerStart: 12-07-2016 End: 57-63-1580Okgyzavhql Discontinued December 07, 2016 12:00am December 08, 2016 2:50pmStart: 12-07-2016 End: 45-25-9891Nyazdooboe Discontinued December 06, 2016 11:00pm December 08, 2016 1:50pmStart: 06-27-2016 End: 06-48-9479virt 1 tablet by mouth once daily in the morningAmlodipine 10 mg Tablet Active 10 MG PO Every morning December 07, 2016 11:00pm HTN Complies with drug therapy End: 67-89-5230ldbw 2 tablets by mouth once dailyamlodipine (NORVASC) 5 MG tablet Take 10 mg by mouth daily 0 06/26/2022 Discontinued (Stop Taking at Discharge)amoxicillin 500 mg / clavulanate 125 mg oral tablet (20 sources)Penicillin-class AntibacterialStart: 12-01-2022 End: 89-85-7154izjs 1 tablet by mouth every twelve hoursAmoxicillin-Pot Clavulanate 500-125 mg tablet Discontinued 1 TAB PO Q12H November 30, 2022 11:00pm February 07, 2023 3:16pmStart: 04-30-2020 End: 83-06-7599jygr 1 tablet by mouth twice dailyAmoxicillin-Pot Clavulanate (Augmentin) 875-125 mg Tablet Discontinued 1 TAB PO Twice daily April 30, 2020 12:00am May 06, 2020 6:39pmStart: 10-12-2017 End: 41-69-9976bdng 1 tablet by mouth twice dailyAmoxicillin-Pot Clavulanate (Augmentin) 875-125 mg tablet Discontinued 1 TAB PO Twice daily 28 14 0July 2017 11:00pm October 24, 2017 11:00pm October 25, 2017 11:01pmbetamethasone 0.001 mg/mg topical ointment (11 sources)CorticosteroidStart: 11-17-2018 End: 64-40-3021Yirtwrdownhcm Valerate 0.1 % ointment Discontinued 1 APPLIC TOPICAL Daily as needed for skin irritation 45 2 November 17, 2018 9:49am March 23, 2019 11:03am use for 2 wks on and 1 wk off to affected area calcium gluconate 1,000 mg in sodium chloride 0.9 % 100 mL IVPB (1 source)Start: 06-22-2022 End: 58-19-6654irkivpk gluconate 1,000 mg in sodium chloride 0.9 % 100 mL IVPB cephalexin 500 mg oral capsule (11 sources)Cephalosporin AntibacterialStart: 11-30-2017 End: 49-97-4288vyyc 1 capsule by mouth three times dailyCephalexin 500 mg Capsule Discontinued 500 MG PO Three times daily November 29, 2017 11:00pm December 16, 2017 9:12am x10 days as ordered per Dr. Nolascoofloxacin 500 mg oral tablet (2 sources)Quinolone AntimicrobialStart: 66-85-8766qoxt 1 tablet by mouth once dailyCipro 500 mg Tab 500 mg = 1 tab(s), Oral, Daily, take one tab day before procedure and one tab after procedure, # 2 tab(s), Refills(s) 0, Pharmacy: [id number], 180, cm, 01/15/25 10:30:00 EDT, Height/Length Dosing Start Date: 01/15/25 Status: Ordered Quantity: 2.0 Unit: tab(s) Repeat number: 1 Start: 87-62-8555fbwp 1 tablet by mouth once dailyCipro 500 mg Tab 500 mg = 1 tab(s), Oral, Daily, Take 1 tablet the day before the procedure and 1 tablet after the procedure, # 2 tab(s), Refills(s) 0, Pharmacy: [id number], 180, cm, 11/09/22 13:16:00 EDT, Height/Length Dosing, 113, kg, 11/09/22 13:16:00 EDT, Weight Dosing Start Date: 09/17/23 Status: Ordereddicloxacillin 500 mg oral capsule (11 sources)Penicillin-class AntibacterialStart: 06-01-2017 End: 86-59-3766ytya 1 capsule by mouth three times dailyDicloxacillin 500 mg Capsule Discontinued 500 MG PO Three times daily June 01, 2017 12:00am August 242017 9:21amdoxycycline hyclate 100 mg oral capsule (11 sources)Tetracycline-class DrugStart: 03-23-2019 End: 38-83-2473uvuh 1 capsule by mouth twice dailyDoxycycline Hyclate 100 mg capsule Discontinued 100 MG PO Twice daily 56 28 0 March 23, 2019 12:00am January 02, 2020 10:08amfenofibrate 145 mg oral tablet (20 sources)Peroxisome Proliferator Receptor alpha AgonistStart: 02-13-2023 End: 37-08-0166vxup 1 tablet by mouth once daily at bedtimeFenofibrate Nanocrystallized 145 mg Tablet Discontinued 145 MG PO Daily at bedtime 0 0 February 13, 2023 12:00am August 30, 2024 11:16amStart: 07-53-6356oyui 160 mg by mouth once plnoj011 mg, Oral, DAILY, First dose on Wed06/23/22 at 0900, Until Discontinued Substituted for Fenofibrate (Non-Formulary Dose).Start: 12-07-2016 End: 38-78-8884Kkwkynfnlou 150 mg Capsule Discontinued 145 MG PO Daily at bedtime December 06, 2016 11:00pm November 19, 2020 10:09am Hyperlipidemia Start: 12-07-2016 End: 17-84-4466ibvr 145 mg by mouth once daily at bedtimeFenofibrate Discontinued 145 MG PO Daily at bedtime December 07, 2016 12:00am November 19, 2020 11:09amStart: 09-22-2016 End: 88-01-0414lbrm 1 tablet by mouth once daily at bedtimeFenofibrate Nanocrystallized 145 mg tablet Discontinued 145 MG PO Daily at bedtime November 18, 2020 11:00pm February 07, 2023 3:16pmferrous sulfate 325 mg oral tablet (12 sources)Start: 10-27-2022 End: 54-95-3451cqdi 1 tablet by mouth once dailyFerrous Sulfate 325 mg (65 mg iron) tablet Discontinued 325 MG PO Daily October 26, 2022 11:00pm May 04, 2023 11:25amStart: 46-32-7387ksgy 1 tablet by mouth once daily at breakfast ferrous sulfate (IRON 325) 325 (65 Fe) MG tablet Take 1 tablet by mouth daily (with breakfast) 90 tablet 1 06/26/2022 Activegentamicin 0.001 mg/mg topical ointment (20 sources)Start: 11-23-2017 End: 57-15-3164Qmprzdtwky 0.1 % ointment Discontinued 1 APPLIC TOPICAL Daily 30 3 November 22, 2017 11:00pm May 19, 2018 11:36am apply to ulcers as directedStart: 04-08-2017 End: 76-67-5236Chuqknigyh 0.1 % ointment Discontinued 1 APPLIC TOPICAL Daily 30 2 April 08, 2017 12:00am November 02, 2017 10:29am apply to sacral ulcer dailygentamicin (GARAMYCIN) 250 mg in sterile water for irrigation 250 mL irrigation (1 source)Start: 06-25-2022 End: 53-18-0668mjrkfqbeou (GARAMYCIN) 250 mg in sterile water for irrigation 250 mL ymkutbtpwp2709 ml glucose 500 mg/ml injection (1 source)Start: 06-22-2022 End: 12-18-5787nqhezipq 50 % IV solution1 ml heparin sodium, porcine 5000 unt/ml prefilled syringe (1 source)Unfractionated Heparin, Anti-coagulantStart: 37-41-6793dpetdf 1 dose by subcutaneous injection three times daily5,000 Units, SubCUTAneous, EVERY 8 HOURS SCHEDULED (3 times per day), First dose on Wed06/22/22 at 2200, Until Discontinuedinsulin aspart (NOVOLOG) 100 UNIT/ML injection vial (3 sources) End: 62-98-3104bipmmxi aspart (NOVOLOG) 100 UNIT/ML injection vial Inject into the skin 3 times daily (before meals) Sliding scale 0 06/26/2022 Discontinued (Stop Taking at Discharge)insulin aspart (NOVOLOG) 100 UNIT/ML injection vial Inject into the skin 3 times daily (before meals) Sliding scale 0 Suspended insulin aspart, human 100 unt/ml injectable solution (16 sources)Insulin AnalogStart: 12-07-2016 End: 92-75-4409Emqgcrq Aspart U-100 (Novolog) 100 unit/mL Solution Discontinued [...] source for Protocol det ails.Start: 12-07-2016 End: 60-78-1924pfhnrg 1 [IU] by subcutaneous injection three times daily at mealtimeInsulin Aspart U-100 (Novolog) 100 unit/mL Solution Discontinued 1 UNITS SUBCUT THREE TIMES DAILY WITH MEALS December 07, 2016 12:00am May 19, 2018 12:36pm Patient not sure of actual corrective scale but felt this was correct Please contact the information source for Protocol details.Start: 83-18-1645admeop 2 [IU] by subcutaneous injection three times [...] injectable solution (11 sources)Insulin AnalogStart: 04-13-2017 End: 43-89-1371snveora glargine (LANTUS) 100 UNIT/ML injection vial Inject 45 Units into the skin 2 times daily 1 vial 3 04/13/2017 06/26/2022 Discontinued (Stop Taking at Discharge)Start: 12-07-2016 End: 56-49-3228lacjzm 50 [IU] by subcutaneous injection twice dailyInsulin Glargine (Lantus) 100 unit/mL Solution Discontinued 50 UNITS SUBCUT Twice daily December 06, 2016 11:00pm September 08, 2022 10:16am DMStart: 92-30-5557mlbwtn 40 [IU] by subcutaneous injection twice dailyinsulin glargine (LANTUS) 100 unit/mL injection Inject 40 Units under the skin 2 (two) times a day.10/14/2016 ActiveInsulin Glargine (Lantus) 100 unit/mL Solution (8 sources)Start: 12-07-2016 End: 17-94-0351deljzp 50 [IU] by subcutaneous injection twice dailyInsulin Glargine (Lantus) 100 unit/mL Solution Discontinued 50 UNITS SUBCUT Twice daily December 06, 2016 11:00pm September 08, 2022 10:16amStart: 12-07-2016 End: 55-75-5466yzhpfp 50 [IU] by subcutaneous injection twice dailyInsulin Glargine (Lantus) 100 unit/mL Solution Discontinued 50 UNITS SUBCUT Twice daily December 07, 2016 12:00am September 08, 2022 11:16amStart: 26-85-5680phfchp 50 [IU] by subcutaneous injection twice dailyInsulin Glargine (Lantus) 100 unit/mL Solution Active 50 UNITS SUBCUT Twice daily December 07, 2016 12:00amStart: 55-35-0566hxxcht 50 [IU] by subcutaneous injection twice dailyInsulin Glargine (Lantus) 100 unit/mL Solution Active 50 UNITS SUBCUT Twice daily December 06, 2016 11:00pm3 ml insulin lispro 100 unt/ml pen injector (5 sources)Insulin AnalogStart: 05-19-2018 End: 55-07-2397Celuczt Lispro (Humalog Kwikpen Insulin) 100 unit/mL Insulin Pen Discontinued 0 .ROUTE .COMPLEX May 19, 2018 12:00am September 08, 2022 10:16am SLIDING SCALEInsulin Lispro (Humalog Kwikpen Insulin) 100 unit/mL Insulin Pen (6 sources)Start: 05-19-2018 End: 64-96-3859Paosgvg Lispro (Humalog Kwikpen Insulin) 100 unit/mL Insulin Pen Discontinued 0 .ROUTE .COMPLEX May 19, 2018 12:00am September 08, 2022 10:16am SLIDING SCALEStart: 05-19-2018 End: 35-89-6107Gqgbzhb Lispro (Humalog Kwikpen Insulin) 100 unit/mL Insulin Pen Discontinued 0 .ROUTE .COMPLEX May 19, 2018 1:00am September 08, 2022 11:16am SLIDING SCALEinsulin, regular, human 100 unt/ml injectable solution (1 source)InsulinStart: 06-22-2022 End: 52-35-7326phmwcyp regular (HUMULIN R;NOVOLIN R) injection 10 Units levoFLOXacin 750 mg oral tablet (20 sources)Quinolone AntimicrobialStart: 10-10-2024 End: 74-39-5226mjin 1 tablet by mouth once dailyLevofloxacin 750 mg tablet Discontinued 750 MG PO Daily 7 7 0 October 09, 2024 11:00pm January 10:47am Local infection of wound Other injury of unspecified body region, initial encounter Local infection of the skin and subcutaneous tissue, unspecifiedStart: 02-13-2023 End: 03-50-0240wamd 1 tablet by mouth once dailyLevofloxacin 750 mg Tablet Discontinued 750 MG PO Daily 6 0 February 13, 2023 12:00am May 04, 2023 11:23amStart: 12-01-2022 End: 77-23-6879oext 1 tablet by mouth once dailyLevofloxacin 500 mg tablet Discontinued 500 MG PO Daily November 30, 2022 11:00pm February 07, 2023 3:16pmStart: 10-16-2021 End: 96-09-9610mutj 1 tablet by mouth once dailyLevofloxacin 750 mg Tablet Discontinued 750 MG PO Daily October 15, 2021 11:00pm November 18, 2021 10:49am x6 weeks, Called to pharmacy 09/09/2021nystatin 653870 unt/ml oral suspension (2 sources)Polyene AntifungalStart: 12-27-2024 End: 02-24-0797azjd 1 mL by mouth four times dailyNystatin 100,000 unit/mL suspension Discontinued 5 ML PO Four times daily 140 7 0 December 26, 2024 11:00pm January 25, 2025 12:18pm swish and ltcaxod78 hr oxybutynin chloride 5 mg extended release oral tablet (20 sources)Cholinergic Muscarinic AntagonistStart: 02-13-2023 End: 79-20-5090fket 1 tablet by mouth once dailyOxybutynin Chloride 5 mg Tablet Extended Release 24hr Discontinued 15 MG PO Daily 90 30 0 February 13, 2023 12:00am October 02, 2024 9:53am On Hold: not takingStart: 98-24-9545lhtk 15 mg by mouth once dailyOxybutynin Chloride Active 15 MG PO Daily 90 30 February 13, 2023 1:00amStart: 11-09-2022 End: 39-93-7173wskz 1 tablet by mouth once dailyOxybutynin Chloride 15 mg tablet extended release 24hr Discontinued 15 MG PO Daily February 07, 2023 12:00am February 01, 2025 10:47amStart: 28-46-5806kgseqqwuuh 15 mg ER Tab Refills(s) 0 Start Date: 11/09/22 Status: OrderedStart: 03-23-2019 End: 57-32-8052thde 1 tablet by mouth once dailyOxybutynin Chloride 10 mg Tablet Extended Release 24hr Discontinued 10 MG PO Daily March 23, 2019 12:00am February 07, 2023 7:56ampolyethylene glycol 3350 16075 mg powder for oral solution (1 source)Osmotic LaxativeStart: 31-08-460795 g, Oral, DAILY PRN, Starting on Wed06/22/22 at 2018, Until Discontinued, Constipation First linetherapy for constipationpolyethylene glycol 3350 028555 mg / potassium chloride 2970 mg / sodium bicarbonate 6740 mg / sodium chloride 5860 mg / sodium sulfate 46486 mg powder for oral solution (1 source)Osmotic LaxativeStart: 06-25-2022 End: 17-76-9570hrdnwffgsdxh glycol (GoLYTELY) solution 4,000 mLStart: 06-25-2022 End: 32-63-1771ttnruwavfdus glycol (GoLYTELY) solution 4,000 mLrosuvastatin calcium 20 mg oral tablet (19 sources)HMG-CoA Reductase InhibitorStart: 06-07-2016 End: 26-17-4025awka 1 tablet by mouth once dailyRosuvastatin (Crestor) 20 mg Tablet Discontinued 20 MG PO Daily December 06, 2016 11:00pm March 23, 2019 11:03am Hyperlipidemiasilver sulfADIAZINE 10 mg/ml topical cream (11 sources)Sulfonamide AntibacterialStart: 09-22-2018 End: 91-47-9426Aourot Sulfadiazine (Silvadene) 1 % cream Discontinued 1 APPLIC TOPICAL Daily 400 0 September 21, 201811:00pm March 23, 2019 11:03am apply a 1.5 mm thicknesssodium polystyrene sulfonate 250 mg/ml oral suspension (1 source)Start: 06-22-2022 End: 45-02-7224jkmxip polystyrene (KAYEXALATE) 15 GM/60ML suspension 45 gsodium zirconium cyclosilicate 31564 mg powder for oral suspension (1 source)Start: 06-23-2022 End: 36-59-6435ntuith zirconium cyclosilicate (LOKELMA) oral suspension 10 g sulfamethoxazole 800 mg / trimethoprim 160 mg oral tablet (20 sources)Dihydrofolate Reductase Inhibitor Antibacterial, Sulfonamide AntimicrobialStart: 04-07-2018 End: 10-41-7219aifk 1 tablet by mouth once dailySulfamethoxazole-Trimethoprim (Bactrim Ds) 800-160 mg Tablet Discontinued 1 TAB PO Daily April 07, 2018 12:00am November 18, 2021 10:49amStart: 06-22-2017 End: 80-06-5053cqjv 1 tablet by mouth twice dailySulfamethoxazole-Trimethoprim (Bactrim Ds) 800-160 mg Tablet Discontinued 1 TAB PO Twice daily June 21, 2017 11:00pm August 24, 2017 9:21amStart: 12-07-2016 End: 41-85-1786Jgcvixl Discontinued December 07, 2016 12:00am December 08, 2016 2:50pmStart: 12-07-2016 End: 26-70-7334Sdccdqx Discontinued December 06, 2016 11:00pm December 08, 2016 1:50pmtriamcinolone acetonide 5 mg/ml topical cream (9 sources)CorticosteroidStart: 02-07-2023 End: 98-48-6003Wldxvyxisgunl Acetonide 0.5 % cream Discontinued 0.5 APPLIC TOPICAL Three times daily February 07, 2023 12:00am May 04, 2023 11:25am Problems Active Problems Problem ClassificationProblemDateDocumented DateEpisodic/ChronicAllergic reactions (20 sources)Urticaria; Translations: [Urticaria, unspecified]Onset: 01-20-2024 38-51-0599XuzwqmitUuelyct kidney disease (20 sources)Chronic kidney disease; Translations: [Chronic kidney disease, unspecified]Onset: 829698-47-9944YdqdtetKfuupca ulcer of skin (20 sources)Non-pressure chronic ulcer of skin of other sites with other specified severity; Translations: [Pressure ulcer of unspecified site, unspecified stage]Onset: 07-19-2013 Resolved: 516281-12-3758BtxekdyZkcdhskquxgt of device; implant or graft (20 sources)Injury of cauda equina ; Translations: [Injury of cauda equina, initial encounter]76-74-2006BgylvwbJyrraooeklokn of surgical procedures or medical care (1 source)Urethral stricture due to and following procedure; Translations: [Postprocedural urethral stricture, male, overlapping sites]Onset: 07-06-2022 07-58-0506NuswryyhKilfssyygg and other anemia (6 sources)Iron deficiency anemia; Translations: [Iron deficiency anemia, unspecified]Onset: 60-50-0186KyyycgytQveapnqvbo and other anemia (3 sources)Zdijbt60-48-0828RwkwcsxdAxijptfwwk and other anemia (9 sources)Microcytic anemia; Translations: [Iron deficiency anemia, unspecified]06-06-6517CmtajpjwNwcssbal mellitus with complications (20 sources)Type 2 diabetes mellitus with hyperglycemia; Translations: [Diabetic foot ulcer]Onset: 89-55-8705OsatmduCchlteov mellitus without complication (20 sources)Diabetes mellitus; Translations: [Type 2 diabetes mellitus without complications]Onset: 904746-71-0552MxhyuplRsjajwbp of white blood cells (2 sources)Elevated white blood cell count, unspecified; Translations: [Elevated white blood cell count, unspecified]Onset: 49-55-1444HqyeljxJggtxymfj of lipid metabolism (20 sources)Mixed hyperlipidemia; Translations: [Mixed hyperlipidemia]Onset: 338165-16-7686UvvjeiuYrytowatg hypertension (20 sources)Hypertensive disorder; Translations: [Essential (primary) hypertension]Onset: 495496-47-0591ScqgtxuDjngmaf on above:d/t Vancomycin use affected kidneysGastritis and duodenitis (20 sources)Chronic superficial gastritis; Translations: [Chronic superficial 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]Onset: 798357-97-7403ShphvgqSiaaxxjknunox symptoms and ill-defined conditions (20 sources)Incontinence without sensory awareness; Translations: [Incontinence without sensory awareness]Onset: 65-41-1049LtovaivBsqfdvmkrghbg symptoms and ill-defined conditions (7 sources)Retention of urine; Translations: [Retention of urine, unspecified] Onset: 08-13-7424VxqneqgiErttytjaj arthritis and osteomyelitis (except that caused by tuberculosis or sexually transmitted disease) (20 sources)Osteomyelitis of right foot; Translations: [Osteomyelitis, unspecified]Onset: 12-25-2016 Resolved: 667965-98-1150SuprxjzEgcz disorders (20 sources)Depressive disorder; Translations: [Depression]Onset: 04-06-2023 34-77-0976NtbjjnxWccp wounds of extremities (18 sources)Open wound of lower limb with complication; Translations: [Unspecified open wound, unspecified knee, initial encounter]Onset: 02-25-2011 48-61-0738ZyphuetnUijbs diseases of bladder and urethra (9 sources)Neurogenic bladder; Translations: [Neuromuscular dysfunction of bladder, unspecified]Onset: 24-38-7279RosjakkQxfwx diseases of bladder and urethra (1 source)Neuromuscular dysfunction of bladder, unspecified; Translations: [Neuromuscular dysfunction of bladder, unspecified]Onset: 82-18-0689BveogjqVdzsx diseases of bladder and urethra (2 sources)Neurogenic dysfunction of the urinary bladder; Translations: [Neuromuscular dysfunction of bladder,unspecified]Onset: 97-73-6791WonyqekOmpcj diseases of bladder and urethra (5 sources)Male urethral stricture; Translations: [Unspecified urethral stricture, male, unspecified site]Onset: 41-18-0696UkapsvciYndcq diseases of veins and lymphatics (2 sources)Vascular insufficiency; Translations: [Venous insufficiency (chronic) (peripheral)]92-33-3744JazumblrYlpyz injuries and conditions due to external causes (11 sources)Injury of cauda equina ; Translations: [Injury of cauda equina, subsequent encounter]72-60-4423PsqovkykEpxds injuries and conditions due to external causes (3 sources)Local infection of wound; Translations: [Other injury of unspecified body region, initial encounter]75-09-1365SotuclhgVbqja nervous system disorders (11 sources)Acute postoperative pain; Translations: [Other acute postprocedural pain]57-06-0449DpdupsacIoxfq non-traumatic joint disorders (6 sources)Pain in right hip; Translations: [Pain in joint, pelvic region and thigh]Onset: 65-81-0478ZtfysmltGchwm non-traumatic joint disorders (11 sources)Hip pain; Translations: [Pain in right hip]39-02-0123BqrsivfaIcgip nutritional; endocrine; and metabolic disorders (11 sources)Obesity; Translations: [Obesity, unspecified]10-82-5440ZqbohxgZgvpx nutritional; endocrine; and metabolic disorders (5 sources)Morbid obesity; Translations: [Morbid (severe) obesity due to excess calories]Onset: 634235-61-7181AmadsujYlwwi nutritional; endocrine; and metabolic disorders (15 sources)Severe obesity; Translations: [Class 2 severe obesity due to excess calories with serious comorbidity and body mass index (BMI) of 36.0 to 36.9 in adult ([facility])]Onset: 310685-58-7684ZlwenuoZyncp screening for suspected conditions (not mental disorders or infectious disease) (5 sources)Electrocardiogram abnormal; Translations: [Abnormal electrocardiogram [ECG] [EKG]]Onset: 88-38-8984TcbhurxkSgvhm skin disorders (20 sources)Vesicular eczema; Translations: [Dyshidrosis [pompholyx]]Onset: 693147-83-1262QgavwbugUurwqzgmy (20 sources)Cauda equina syndrome; Translations: [Cauda equina syndrome]Onset: 709986-68-4394NywmmqhAdhesbjgsm and visceral atherosclerosis (10 sources)Peripheral vascular disease, unspecified; Translations: [Peripheral arterial disease]Onset: 454826-96-1010PsjuftoHchaxhsa codes; unclassified (3 sources)Sleep vqzyq90-82-0263KjtyvxpKpdjutpw codes; unclassified (20 sources)Obstructive sleep apnea syndrome; Translations: [Obstructive sleep apnea (adult) (pediatric)]Onset: 830776-74-4440CvkwxbwMddlagkm codes; unclassified (11 sources)Pain; Translations: [Pain, unspecified]80-43-1450GxtduxisNvfgklhx codes; unclassified (5 sources)Bilateral lower limb edema; Translations: [Localized edema]08-30-2024 EpisodicResidual codes; unclassified (1 source)Localized edema; Translations: [Edema]21-64-4921AtnybumcGjqk and subcutaneous tissue infections (20 sources)Cellulitis, unspecified; Translations: [Cellulitis]Onset: 02-25-2011 Resolved: 674538-57-0867TeapxuafVrfeyztohkr; intervertebral disc disorders; other back problems (9 sources)Sacral back pain; Translations: [Sacrococcygeal disorders, not elsewhere classified]19-25-6272TgmstgsmSxuuneokdgik (1 source)Patient encounter quobwg28-41-0838Vopniml tract infections (20 sources)Recurrent urinary tract infection; Translations: [Urinary tract infection, site not specified]Onset: 519779-97-7804Qurtbsba Past or Other Problems Problem ClassificationProblemDateDocumented DateEpisodic/ChronicAcute and unspecified renal failure (16 sources)Xsbft-fr-zgvlkji renal failure; Translations: [Acute kidney failure, unspecified]Onset: 512732-28-3605YckprmwzFwgvhacqa infection; unspecified site (15 sources)Infection due to enterococcus; Translations: [Enterococcus as the cause of diseases classified elsewhere]Onset: 945610-20-0501Iknmeikl Deficiency and other anemia (1 source)Iron deficiency anemia, unspecified; Translations: [Iron deficiency anemia, unspecified]Onset: 21-52-2242TgaujdvvAwxqq and electrolyte disorders (13 sources)Hyponatremia; Translations: [Hypo-osmolality and hyponatremia]Onset: 096746-03-2282BpeqdoweYsdld aftercare (20 sources)Long-term current use of drug therapy; Translations: [Other nursing home (current) drug therapy]Onset: 562490-65-2817LcxeytrrUgnni aftercare (5 sources)Patient encounter status; Translations: [Other nursing home (current) drug therapy]Onset: 988092-53-1134HdezyjruCvdlx aftercare (1 source)custodial (current) use of insulin; Translations: [custodial (current) use of insulin]Onset: 32-76-5828MwtwwzvyPbzaz inflammatory condition of skin (20 sources)Pruritus, unspecified; Translations: [Unspecified pruritic disorder] Onset: 11-18-2023 Resolved: 005831-97-6317JshoxennHxaws injuries and conditions due to external causes (1 source)Injury of cauda equina, subsequent encounter; Translations: [Injury of cauda equina, subsequent encounter]Onset: 02-51-8434YsvmxeiwDtmun nervous system disorders (1 source)Other acute postprocedural pain; Translations: [Other acute postprocedural pain]Onset: 48-20-2163GlypcvrhGbvmezpixe (except in labor) (5 sources)Sepsis due to methicillin resistant Staphylococcus aureus; Translations: [Sepsis due to Methicillinresistant Staphylococcus aureus]Onset: 09-09-2016 Resolved: 888225-42-4712Ltnhiqfk Results Test NameValueInterpretationReference RangeFacilityAmbulatory Visit Summaryon 93-78-9559Lmvohszlae Visit SummaryAmbulatory Visit Summary GANGA STINSON :1960 [...] When: Comments: sched cysto/UD Where: [address] [place] [address] [place] [address] Medications What How Much When Instructions New ciprofloxacin (Cipro 500 mg Tab) 1 Tablets By Mouth Every day take one tab day before procedureand one tab after procedure Pickup at [facility] Unchanged amlodipine (amLODIPine 10 mg Tab) Contact [...] physician if questions or concerns Pharmacy Information [facility]: [address] [place], [place] [id number] [phone] Allergies omadacycline (Kidney pain) Problems Ongoing - [...] this condition may inclu (more content not included)...[facility] HospitalUrology Office/Clinic Noteon 41-62-0407Brwykto Office/Clinic NoteUrology Office/Clinic Note Chief Complaint Follow [...] Contact Information ALLEN NAZARIO, Jovanny Christie, URL [address] [place] [address] [place] [address] Additional Instructions: sched cysto/UD Patient Education Urethral [...] 01/01/2015 Recorded influenza virus vaccine, inactivated 01/10/2014 RecordedCleveland Clinic Mentor HospitalComment on above:Result Comment: Electronically Signed By: Jovanny VILLA MD\.br\Date and Time Signed: 01/15/25 11:33 EDT\.br\Electronically Co-Signed By: Dia Serrato.br\Date and Time Co-Signed: 01/15/25 11:31 EDT Basophils Auto (Bld) [#/Vol]Ordered By: Jesus Hernandes on 06-85-5070Xqjixxeyx (Bld) [#/Vol]0.0 10 3/uL0.0-0.1FSelect Medical Specialty Hospital - Southeast OhioBasophils/100 WBC Auto (Bld)Ordered By: Jesus Hernandes on 22-65-9119Skeferilq/100 WBC (Bld) 0.2 %0.2-2.0[facility] HospitalEosinophils/100 WBC Auto (Bld) Ordered By: Jesus Hernandes on 42-21-9324Kityigbfxrx/100 WBC (Bld)6.8 %0.9-7.0 [facility] HospitalErythrocyte distribution width Auto (RBC) [Ratio]Ordered By: Jesus Hernandes on 47-33-5445Fpwjmegogwo distribution width (RBC) [Ratio]14.6 %11.0-15.0[facility] HospitalGlomerular filtration rate (GFR) estimation in non- AmericanOrdered By: Jesus Hernandes on 88-38-6988ERW/1.73 sq M.predicted among non-blacks MDRD (S/P/Bld) [Vol rate/Area]28 mL/min/{1.73_m2}Low>=60 mL/min/1.73m 2FSelect Medical Specialty Hospital - Southeast OhioHematocrit Auto (Bld) [Volume fraction]Ordered By: Jesus Hernandes on 37-31-0954Bvftsvetdk (Bld) [Volume fraction]23.8 %Critically low 42.0-54.0[facility] HospitalComment on above:RESULTS CALLED TO Dr. HernandesHemoglobin [Mass/volume] in BloodOrdered By: Jesus Hernandes on 52-87-1943Zkwwrivxfu (Bld) [Mass/Vol]7.2 g/dLLow14.0-18.0[facility] HospitalLaboratory - Chemistry and Chemistry - challengeOrdered By: Jesus Hernandes on 08-05-2408Vmfgvms [Mass/Vol]8.5 mg/dL8.5-10.1FSelect Medical Specialty Hospital - Southeast OhioChloride [Moles/Vol]105 mmol/C49-259XyxfvyjolCleveland Clinic Euclid HospitalCO2 [Moles/Vol]22.8 mmol/L21.0-32.0[facility] Creatinine [Mass/Vol]2.37 mg/dLHigh0.70-1.30[facility] GFR/1.73 sq M.predicted MDRD (S/P/Bld) [Vol rate/Area]34 mL/min/{1.73_m2}Low>=60 mL/min/1.73m 2FSelect Medical Specialty Hospital - Southeast OhioGlucose [Mass/Vol]194 mg/dLHigh 74-106[facility] HospitalPotassium [Moles/Vol]5.0 mmol/L3.5-5.1 [facility] Medical Centerodium [Moles/Vol]138 mmol/Z763-701RdscqjfwvCleveland Clinic Euclid HospitalUrea nitrogen [Mass/Vol]47.0 mg/dLHigh7.0-18.0[facility] HospitalUrea nitrogen/Creatinine [Mass ratio]19.8 mg/mgCleveland Clinic Euclid HospitalLaboratory - Hematology and Cell countsOrdered By: Jesus Hernandes on 38-22-8203Fnetawnu granulocytes/100 WBC (Bld)0.9 %High0.0-0.5 [facility] HospitalLeukocytes [#/volume] corrected for nucleated erythrocytes in Blood by Automated counOrdered By: Jesus Hernandes on 55-53-6721QUO corrected for nucl RBC Auto (Bld) [#/Vol]13.2 10 3/uLHigh4.0-11.0 [facility] HospitalLymphocytes Auto (Bld) [#/Vol]Ordered By: Jesus Hernandes on 63-19-9705Mejnmepfggr (Bld) [#/Vol]1.4 10 3/uL1.2-3.8[facility] HospitalLymphocytes/100 WBC Auto (Bld)Ordered By: Jesus Hernandes on 61-69-4223Toctohbutor/100 WBC (Bld)10.8 %Low20.5-60.0[facility] Auto (RBC) [Entitic mass]Ordered By: Jesus Hernandes on 88-79-3042UCR (RBC) [Entitic mass]24.9 pgLow25.9-34.0[facility] HospitalMCHC Auto (RBC) [Mass/Vol]Ordered By: Jesus Hernandes on 30-73-8812EGUO (RBC) [Mass/Vol]30.3 g/dL29.9-35.2FSelect Medical Specialty Hospital - Southeast OhioMCV Auto (RBC) [Entitic vol]Ordered By: Jesus Hernandes on 22-40-2737PIP (RBC) [Entitic vol]82.4 fL80.0-94.0[facility] HospitalMonocytes Auto (Bld) [#/Vol]Ordered By: Jesus Hernandes on 59-81-9384Bhvbfpumc (Bld) [#/Vol]1.1 10 3/uLHigh0.3-0.8[facility] HospitalMonocytes/100 WBC Auto (Bld)Ordered By: Jesus Hernandes on 96-60-1081Bzzmugemr/100 WBC (Bld)8.1 % 1.7-12.0[facility] HospitalNeutrophils Auto (Bld) [#/Vol]Ordered By: Jesus Hernandes on 71-81-5157Votmafhskrt (Bld) [#/Vol]9.6 10 3/uLHigh 1.4-6.5FSelect Medical Specialty Hospital - Southeast OhioNeutrophils/100 WBC Auto (Bld)Ordered By: Jesus Hernandes on 15-82-0996Fhaappyqwvg/100 WBC (Bld)73.2 %43.0-75.0 [facility] HospitalNo Panel InformationOrdered By: Jesus Hernandes on 07-13-5495Tkhaglakzxv # (Auto)0.9 10 3/uLHigh0.0-0.7FSelect Medical Specialty Hospital - Southeast OhioImmature Granulocyte # (Auto)0.12 10 3/uLHigh0.00-0.03 [facility] HospitalPlatelet mean volume Auto (Bld) [Entitic vol] Ordered By: Jesus Hernandes on 52-25-8696Lzffxmqv mean volume (Bld) [Entitic vol]8.7 fLLow9.5-13.5FSelect Medical Specialty Hospital - Southeast OhioPlatelets Auto (Bld) [#/Vol]Ordered By: Jesus Lopezshasta on 85-62-4151Lfmcxxfpq (Bld) [#/Vol]383 10 3/bL417-276GgrgrdqkbCleveland Clinic Euclid HospitalRBC Auto (Bld) [#/Vol]Ordered By: Jesus Hernandes on 22-11-3355DVA (Bld) [#/Vol]2.89 10 6/uLLow4.70-6.10[facility]huja Medical Centererum or plasma anion gap determinationOrdered By: Jesus Hernandes on 23-79-6494Syuky gap [Moles/Vol]15.2 mmol/LFSelect Medical Specialty Hospital - Southeast OhioPatient Letter FTon 25-85-1677Czxjarp Letter FTPatient Letter [facility] [place] [place] 07, [facility]24 GANGA STINSON [address] [place] [address] : 1960 Dear Mr. Ganga Stinson, [facility], Dr. Jovanny Villa office has been trying to reach you concerning scheduling your annual bladder scope (cystoscopy) and urethral dilation at the [facility]. We have left several messages without a response. Please call the office as soon as possible so we can get you scheduled and continue to provide you with quality care. Sincerely, Jovanny Villa M.D., F.A.C.S. [facility] [address] [place], [place] [address] , option #3NoTrumbull Regional Medical CenterBasophils Auto (Bld) [#/Vol]Ordered By: Nina River on 14-69-3730Cwprnjbtc (Bld) [#/Vol]0.1 10 3/uL0.0-0.1FSelect Medical Specialty Hospital - Southeast OhioBasophils/100 WBC Auto (Bld)Ordered By: Nina Aleta on 43-58-7744Klghwrdth/100 WBC (Bld)0.5 %0.2-2.0[facility] HospitalEosinophils/100 WBC Auto (Bld)Ordered By: Nina River on 31-75-0118Bpvjnswoeiw/100 WBC (Bld)10.1 %High0.9-7.0[facility] HospitalErythrocyte distribution width Auto (RBC) [Ratio]Ordered By: Nina River on 69-33-6004Dbooazcorif distribution width (RBC) [Ratio]13.8 % 11.0-15.0[facility] HospitalGlomerular filtration rate (GFR) estimation in non- AmericanOrdered By: Nina River on 11-28-2024 GFR/1.73 sq M.predicted among non-blacks MDRD (S/P/Bld) [Vol rate/Area]43 mL/min/{1.73_m2}Low>=60 mL/min/1.73m 2FSelect Medical Specialty Hospital - [place] Hematocrit Auto (Bld) [Volume fraction]Ordered By: Nina River on 11-28-2024 Hematocrit (Bld) [Volume fraction]25.0 %Low42.0-54.0[facility] HospitalHemoglobin [Mass/volume] in BloodOrdered By: Nina River on 11-28-2024 Hemoglobin (Bld) [Mass/Vol]8.0 g/dLLow14.0-18.0[facility] Iron binding capacity [Mass/volume] in Serum or PlasmaOrdered By: Nina River on 95-38-3115Oyiv binding capacity [Mass/Vol]114.0 ug/uCFzn202.0-450.0[facility] HospitalIron saturation [Mass Fraction] in Serum or Plasma Ordered By: Nina River on 65-69-0786Zphp saturation [Mass fraction]21.1 % [facility] HospitalLaboratory - Chemistry and Chemistry - challengeOrdered By: Nina River on 29-15-7959Gjgakqs [Mass/Vol]8.3 mg/dLLow 8.5-10.1FSelect Medical Specialty Hospital - Southeast OhioChloride [Moles/Vol]105 mmol/L98-107 [facility] HospitalCO2 [Moles/Vol]25.4 mmol/L21.0-32.0[facility] HospitalCreatinine [Mass/Vol]1.64 mg/dLHigh0.70-1.30[facility] HospitalFerritin [Mass/Vol]898.0 ng/hVGtwy46.0-388.0[facility] HospitalGFR/1.73 sq M.predicted MDRD (S/P/Bld) [Vol rate/Area]52 mL/min/{1.73_m2}Low>=60 mL/min/1.73m 2FSelect Medical Specialty Hospital - Southeast OhioGlucose [Mass/Vol]323 mg/cZXxww49-353AhxpvbqqeCleveland Clinic Euclid HospitalIron [Mass/Vol] 24.0 ug/dLLow65.0-175.0[facility] HospitalPotassium [Moles/Vol]3.6 mmol/L3.5-5.1FHolmes County Joel Pomerene Memorial Hospitalodium [Moles/Vol]139 mmol/L 136-145[facility] HospitalUrea nitrogen [Mass/Vol]22.0 mg/dLHigh 7.0-18.0[facility] HospitalUrea nitrogen/Creatinine [Mass ratio] 13.4 mg/mgCleveland Clinic Euclid HospitalLaboratory - Hematology and Cell countsOrdered By: Nina River on 80-74-6880OCE (Bld) [Velocity]125 mm/hHigh <=20[facility] HospitalImmature granulocytes/100 WBC (Bld)0.4 % 0.0-0.5Fire[facility] Medical CenterLeukocytes [#/volume] corrected for nucleated erythrocytes in Blood by Automated counOrdered By: Nina Aleta on 48-56-1808HQS corrected for nucl RBC Auto (Bld) [#/Vol]12.5 10 3/uLHigh4.0-11.0 [facility] HospitalLymphocytes Auto (Bld) [#/Vol]Ordered By: Nina Aleta on 21-33-6395Dhfkdrpgptt (Bld) [#/Vol]1.5 10 3/uL1.2-3.8[facility] HospitalLymphocytes/100 WBC Auto (Bld)Ordered By: Nina Aleta on 34-75-6439Gntfzwnwece/100 WBC (Bld)12.1 %Low20.5-60.0Berger HospitalH Auto (RBC) [Entitic mass]Ordered By: Nina Aleta on 60-26-4063AJS (RBC) [Entitic mass]26.1 pg25.9-34.0[facility] HospitalMCHC Auto (RBC) [Mass/Vol]Ordered By: Nina Aleta on 83-33-6625VBZT (RBC) [Mass/Vol]32.0 g/dL29.9-35.2FSelect Medical Specialty Hospital - Southeast OhioMCV Auto (RBC) [Entitic vol]Ordered By: Nina Aleta on 08-65-1585SWV (RBC) [Entitic vol]81.4 fL80.0-94.0[facility] HospitalMonocytes Auto (Bld) [#/Vol]Ordered By: Nina Aleta on 00-86-2283Mtqkduini (Bld) [#/Vol]1.0 10 3/uLHigh0.3-0.8[facility] HospitalMonocytes/100 WBC Auto (Bld) Ordered By: Nina Aleta on 11-50-1898Cpdzmzimw/100 WBC (Bld)7.7 %1.7-12.0 [facility] HospitalNeutrophils Auto (Bld) [#/Vol]Ordered By: Nina Aleta on 11-64-0665Uiyxxlzzixv (Bld) [#/Vol]8.6 10 3/uLHigh1.4-6.5 [facility] HospitalNeutrophils/100 WBC Auto (Bld)Ordered By: Nina River on 95-23-4819Soemdgnynyi/100 WBC (Bld)69.2 %43.0-75.0[facility] HospitalNo Panel InformationOrdered By: Nina River on 42-47-2357S-Reactive Protein, Fahpltjdjnzz09.73 mg/dLHigh<=0.50[facility] HospitalEosinophils # (Auto)1.3 10 3/uLHigh0.0-0.7FSelect Medical Specialty Hospital - Southeast OhioImmature Granulocyte # (Auto)0.05 10 3/uLHigh0.00-0.03 [facility] HospitalPlatelet mean volume Auto (Bld) [Entitic vol] Ordered By: Nina River on 17-32-1887Dsnbriwh mean volume (Bld) [Entitic vol] 9.0 fLLow9.5-13.5FSelect Medical Specialty Hospital - Southeast OhioPlatelets Auto (Bld) [#/Vol] Ordered By: Nina Aleta on 03-78-6389Eujemwpnf (Bld) [#/Vol]331 10 3/uL 150-450C[facility] HospitalRBC Auto (Bld) [#/Vol]Ordered By: Nina Aleta on 23-48-1238ANP (Bld) [#/Vol]3.07 10 6/uLLow4.70-6.10[facility] Medical Centererum or plasma anion gap determinationOrdered By: Nina River on 82-99-8110Mgzez gap [Moles/Vol]12.2 mmol/LFSelect Medical Specialty Hospital - Southeast OhioAerobic Cultureon 01-36-5464Xntoqfu CultureComment Left Hip Tissue Culture ORGANISM: Strep [...] RESISTANT TO ALL B-LACTAM DRUGS. PERFORMED BY: [place] [address] PATHOLOGIST MAILMASTER LEXA ELLIOTT M.D.[facility]ula Physician GroupComment on above: Performed By: #### AERC #### [address] StreetBasi Metabolic Panelon 92-86-0157Zorpuuuvyh Clr Calc Xatrtytl[address] [place] [address] Physician [facility] Regional Medical CenterComment on above:Result Comment: PERFORMED BY: [place] [address] PATHOLOGIST MAILMASTER LEXA ELLIOTT M.D.Performed By: #### CBC, BMP #### [place] [address] USAGFR/1.73 sq M.predicted MDRD (S/P/Bld) [Vol rate/Area] 45.056 mL/min/{1.73_m2}NormalThe Formerly Pard[facility] Unc Health Care Physician GroupComment on above: Performed By: #### CBC, BMP #### [facility] [address] [place] [address] USABasophils [#/volume] in Blood by Automated countOrdered By: Rafi Cai on 32-49-7215Ojepaiggh (Bld) [#/Vol]0.1 10*3/uLNormal0.0-0.2 [facility] HospitalComment on above:Result Comment: PERFORMED BY: [facility] [address] [place] [address] PATHOLOGIST MAILMASTER LEXA ELLIOTT M.D.Performed By: #### CBC, BMP #### [facility] [address] [place] [id number] USABasophils/100 leukocytes in Blood by Automated count Ordered By: Rafi Cai on 55-97-8381Zfktabmcb/100 WBC (Bld)0.6 %Normal. [facility]uclid HospitalComment on above:Performed By: #### CBC, BMP #### [facility] [address] [place] [address] USACalcium [Mass/volume] in Serum or PlasmaOrdered By: Rafi Cai on 68-07-0038Udyujad [Mass/Vol]8.3 mg/dLLow8.6-10.3FSelect Medical Specialty Hospital - Southeast OhioComment on above:Performed By: #### CBC, BMP #### [facility] [address] [place] [id number] USACapillary blood glucose measurement by glucometer (mass/volume)Ordered By: Cathy Brar on 96-41-9876Dwruqml [Mass/Vol]74 mg/dL [facility]itan HospitalComment on above:Random Glucose Reference Range is [...] the diagnosis of Diabetes Mellitus. PERFORMED BY: [place] [address] PATHOLOGIST MAILMASTER LEXA ELLIOTT M.D.Performed By: #### GLULS #### Point of Care testing ,Carbon dioxide, total [Moles/volume] in Serum or PlasmaOrdered By: Rafi Cai on 14-58-7890VX9 [Moles/Vol]24.7 mmol/SPdqpdv62.0-31.0C[facility] Euclid HospitalComment on above:Performed By: #### CBC, BMP #### [place] [address] USAChloride [Moles/volume] in Serum or PlasmaOrdered By: Rafi Cai on 60-22-6178Prfwipub [Moles/Vol]109 mmol/JNqrr28-348ZafadivhlCleveland Clinic Euclid HospitalComment on above:Performed By: #### CBC, BMP #### [place] [address] USAComplete Blood Count Auto Diffon 53-98-2836Omhz Corpuscular HGB Conc32.2 g/dLLow32.5-35.6The [facility] Health Care Physician GroupComment on above:Performed By: #### CBC, BMP #### [place] [address] USANRBC%0.0 /100{WBC}Normal0-0.5The [facility] Comment on above:Performed By: #### CBC, BMP #### [place] [address] USAWhite Blood Count13.7 [CFU]/mLHigh4.1-10.5The [facility] Health Care Physician GroupComment on above:Performed By: #### CBC, BMP #### [place] [address] USACreatinine [Mass/volume] in Serum or PlasmaOrdered By: Rafi Cai on 08-82-4102Gwrpnqqvio [Mass/Vol]1.69 mg/dLHigh0.70-1.30 [facility]uclid HospitalComment on above:Performed By: #### CBC, BMP #### [facility] [address] [place] [address] USAECG 12 lead ECGon 19-58-1856GHE 12 lead ECGBLANCHARD [facility]LEY [facility] Main [place] [address] [place] [id number] Electrocardiograph Report Signed Patient: Ganga Stinson MR#: [id number] : 1960 Acct:[id number] Age/Sex: 64 / M ADM Date: 10/02/24 Loc: [place] Room: Type: [facility] Attending Dr: Cathy Brar MD Ordering Provider: [...] change was found Confirmed by Jese Whitley ([id number]) on 10/02/2024 4:24:29 PM Referred By: Electronically Signed By: Jese Whitley Transcribed By: MUS Signed By Jese Whitley MD 10/02/[address] [place] [address] Physician GroupEosinophils [#/volume] in Blood by Automated countOrdered By: Rafi Cai on 69-99-3955Ccxoofbsgmk (Bld) [#/Vol]1.2 10*3/uLHigh0.0-0.45C[facility] Euclid HospitalComment on above: Performed By: #### CBC, BMP #### [facility] [address] [place] [address] USAEosinophils/100 leukocytes in Blood by Automated count Ordered By: Rafi Cai on 76-81-5916Lgggbzowois/100 WBC (Bld)8.7 %Normal. [facility]uclid HospitalComment on above:Performed By: #### CBC, BMP #### [facility] [address] [place] [address] USAErythrocyte distribution width [Ratio] by Automated count Ordered By: Rafi Cai on 77-21-3525Cdxayuwomts distribution width (RBC) [Ratio]15.3 %High12.0-14.8[facility] Euclid HospitalComment on above: Performed By: #### CBC, BMP #### [facility] [address] [place] [address] USAErythrocytes [#/volume] in Blood by Automated countOrdered By: Rafi Cai on 13-09-9351POM (Bld) [#/Vol]2.89 10*6/uLLow3.90-5.60 [facility]uclid HospitalComment on above:Performed By: #### CBC, BMP #### [facility] [address] [place] [address] USAGLUCOSE POCT GLUCOMETERSon 86-17-6681Wjrztib [Mass/Vol]74 mg/dLNOHI HealthcareComment on above:Random Glucose Reference Range is dependent on time and content of last meal. Glucose of more than 200 mg/dL in a nonstressed, ambulatory subject supports the diagnosis of Diabetes Mellitus. NOMS HuapxyzunbVDYRLIX9Bna0: Cleaned MeterNOMS HealthcareGlucose [Mass/Vol]77 mg/dLNOHI HealthcareComment on above:Random Glucose Reference Range is dependent on time and content of last meal. Glucose of more than 200 mg/dL in a nonstressed, ambulatory subject supports the diagnosis of Diabetes Mellitus. NOMS HealthcareGlucose Poct Glucometerson 19-78-1414Jpopzop8Jks5: Cleaned Meter NormalAdventhealth Kissimmee Physician GroupComment on above:Result Comment: PERFORMED BY: [place] [address] PATHOLOGIST MAILMASTER LEXA ELLIOTT M.D.Performed By: #### GLULS #### Point of Care testing ,Glucose [Mass/Vol]77 mg/dLAdventHealth Wauchula Physician GroupComment on above: Result Comment: Random Glucose Reference Range is dependent on time and content of last meal. Glucose of more than 200 mg/dL in a nonstressed, ambulatory subject supports the diagnosis of Diabetes Mellitus.Performed By: #### GLULS #### Point of Care testing ,Glucose [Mass/volume] in Serum or PlasmaOrdered By: Rafi Cai on 57-95-5101Skmdbvv [Mass/Vol]72 mg/kDEcgyjr24-533WcsjswlyyCleveland Clinic Euclid HospitalComment on above:ADA recommended reference rangeRandom Glucose [...] reference rangePerformed By: #### CBC, BMP #### [facility] [address] [place] [id number] USAHematocrit [Volume Fraction] of Blood by Automated count Ordered By: Rafi Cai on 22-74-3975Sfznneuqwp (Bld) [Volume fraction]23.0 % Low38.8-50.0C[facility] Euclid HospitalComment on above:Performed By: #### CBC, BMP #### [facility] [address] [place] [address] USAHemoglobin [Mass/volume] in BloodOrdered By: Rafi Cai on 14-85-9473Ihsajnpyoh (Bld) [Mass/Vol]7.4 g/dLLow13.0-17.0C[facility] Euclid HospitalComment on above:Performed By: #### CBC, BMP #### [facility] [address] [place], [place] [address] USALon 10-02-2024L Specimen: [id number] Received: 10/02/24 Status: CINDYCandelaria Regulo Num: [id number] Spec Type: Surgical Subm Dr: Cathy Brar MD Tissues: A Debridement-Skin/Other Than Skin (PRODUCTS OF DEBRIDEMENT) Procedures: ISMA Gross/Micro L3 Age/ Patient Sex Location Account Attending Physician Ganga Stinson/Sam MA [id number] Cathy Brar MD SPEC NUM: [id number] RECD: 10/02/24 STATUS: ROSIO REGULO NUM: [id number] NAYLA: 10/02/24 [facility] DR: Cathy Brar MD ENTERED: 10/02/24 [facility] [address]: AMARILIS TYPE: Surgical DEPT: S ENTERED BY: [id number] RECV BY: [id number] ORDERED: Gianna ASHBY/Micro L3 ORDERED: Gianna ASHBY/Micro [...] to yellow, dull and uniform cut surfaces. Hall Monitor sections are submitted in a single cassette. (1, , [id number] A) Microscopic Description Microscopic examination is performed. CPT Codes 54920 Specimen: [id number] Received: 10/02/24 Status: ROSIO Regulo Num: [id number] Spec Type: Surgical Subm Dr: Cathy Brar MD Tissues: A Debridement-Skin/Other Than Skin (PRODUCTS OF DEBRIDEMENT) Procedures: Gianna ASHBY/Margo L3 Patient: Ganga Stinson [id number] (Continued) Signed (signature on file) Zak Brasher MD 10/04/24 0918Normal The [facility] Care Physician GroupLeukocytes [#/volume] corrected for nucleated erythrocytes in Blood by Automated counOrdered By: Rafi Cai on 10-02-2024 WBC corrected for nucl RBC Auto (Bld) [#/Vol]13.7 10*3/uLHigh4.1-10.5FSelect Medical Specialty Hospital - Southeast OhioLeukocytes [#/volume] in Blood by Automated countOrdered By: Rafi Cai on 18-17-7899LAF (Bld) [#/Vol]13.7 10*3/uLHigh4.1-10.5 [facility] HospitalComment on above:Performed By: #### CBC, BMP #### [facility] [address] [place] [address] USALymphocytes [#/volume] in Blood by Automated countOrdered By: Rafi Cai on 16-61-1137Ccynotkbpef (Bld) [#/Vol]1.5 10*3/uLNormal 1.00-4.8C[facility] HospitalComment on above:Performed By: #### CBC, BMP #### [facility] [address] [place], [place] [address] USALymphocytes/100 leukocytes in Blood by Automated count Ordered By: Rafi Cai on 87-47-5019Rrcenjopmnp/100 WBC (Bld)11.2 %Normal. [facility] HospitalComment on above:Performed By: #### CBC, BMP #### [facility] [address] [place] [address] USAH [Entitic mass] by Automated countOrdered By: Rafi Cai on 02-10-8487HMR (RBC) [Entitic mass]25.6 pgLow27.5-35.2FSelect Medical Specialty Hospital - Southeast OhioComment on above:Performed By: #### CBC, BMP #### [facility] [address] [place] [address] USAMCHC Auto (RBC) [Mass/Vol]Ordered By: Rafi Cai on 86-83-5955EGFL (RBC) [Mass/Vol]32.2 g/dLLow32.5-35.6FSelect Medical Specialty Hospital - Southeast OhioMCV [Entitic volume] by Automated countOrdered By: Rafi Cai on 68-74-3189TTN (RBC) [Entitic vol]79.5 fLLow83.5-101C[facility] HospitalComment on above:Performed By: #### CBC, BMP #### [facility] [address] [place] [address] USAMonocytes [#/volume] in Blood by Automated countOrdered By: Rafi Cai on 61-59-0604Zcmhtecth (Bld) [#/Vol]1.1 10*3/uLHigh0.0-0.8 [facility] HospitalComment on above:Performed By: #### CBC, BMP #### [facility] [address] [place] [address] USAMonocytes/100 leukocytes in Blood by Automated count Ordered By: Rafi Cai on 40-57-7535Cymisudby/100 WBC (Bld)8.3 %Normal. [facility] HospitalComment on above:Performed By: #### CBC, BMP #### [place] [id number] USANeutrophils [#/volume] in Blood by Automated countOrdered By: Rafi Cai on 68-26-2687Brkazaqdnym (Bld) [#/Vol]9.8 10*3/uLHigh1.8-7.7 [facility] HospitalComment on above:Performed By: #### CBC, BMP #### [facility] [address] [place] [address] USANeutrophils/100 leukocytes in Blood by Automated count Ordered By: Rafi Cai on 39-68-9817Smkqbdkiudv/100 WBC (Bld)71.2 %Normal. [facility]ucl[facility] HospitalComment on above:Performed By: #### CBC, BMP #### [address] [address] USANo Panel InformationOrdered By: Rafi Cai on 88-70-0312Qejoklouf GFR (CKD-EPI)45.056 mL/MinCleveland Clinic Euclid Hospital Pharmacy Creatinine Clearance (Chem54.42C[facility]ucl[facility] HospitalNo Panel InformationOrdered By: Cathy Brar on 67-83-9048Orzxknx Glucose Comment Glu2: cleaned [facility]hes[facility] North HospitalNucleated erythrocytes [Presence] in Blood by Automated countOrdered By: Rafi Cai on 10-02-2024 Nucleated RBC Auto Ql (Bld)0.0 /100{WBC}0-0.5FSelect Medical Specialty Hospital - Southeast Ohio Platelet mean volume [Entitic volume] in Blood by Automated countOrdered By: Rafi Cai on 02-30-9293Dqteyein mean volume (Bld) [Entitic vol]6.2 fLLow 6.6-10.1FSelect Medical Specialty Hospital - Southeast OhioComment on above:Performed By: #### CBC, BMP #### [facility] [address] [place] [address] USAPlatelets [#/volume] in Blood by Automated countOrdered By: Rafi Cai on 17-01-3010Jsqkrjhsx (Bld) [#/Vol]339 10*3/dDRonsti170-980 [facility] HospitalComment on above:Performed By: #### CBC, BMP #### [facility] [address] [place] [address] USAPotassium [Moles/volume] in Serum or PlasmaOrdered By: Rafi Cai on 29-10-7826Oelhfyqwf [Moles/Vol]3.7 mmol/LNormal3.5-5.1 [facility] HospitalComment on above:Performed By: #### CBC, BMP #### [facility] [address] [place] [address] USASerum or plasma anion gap determinationOrdered By: Rafi Cai on 59-88-0459Lgrhj gap [Moles/Vol]8.0 mmol/LNormal6.0-15.0[facility] HospitalComment on above:Performed By: #### CBC, BMP #### [facility] [address] [place] [address] USASodium [Moles/volume] in Serum or PlasmaOrdered By: Rafi Cai on 86-97-6209Zsghnn [Moles/Vol]138 mmol/KWsaxfo156-592DbfopfoofCleveland Clinic Euclid HospitalComment on above:Performed By: #### CBC, BMP #### [facility] [address] [place] [address] USAUrea nitrogen [Mass/volume] in Serum or PlasmaOrdered By: Rafi Cai on 01-55-8198Rwyn nitrogen [Mass/Vol]25 mg/dLNormal7-25C[facility] HospitalComment on above:Performed By: #### CBC, BMP #### [facility] [address] [place] [address] USAALL CBC WITH AUTO DIFFon 22-53-2694YSVQIPHEW ABSOLUTE AUTO 0NOHI HealthcareBasophils/100 WBC (Bld)0.3 %0.2 - 2.0 %[facility] Eosinophils/100 WBC (Bld)9.5 %High0.9 - 7.0 %[facility] SouthErythrocyte distribution width (RBC) [Ratio]14.3 %11.0 - 15.0 %[facility] SouthHematocrit (Bld) [Volume fraction]23.2 %Critically low42.0 - 54.0 %[facility] SouthComment on above:RESULTS CALLED TO CHEYENNE HUDSON RNHemoglobin (Bld) [Mass/Vol]7.4 g/dLLow 14.0 - 18.0 g/dLCox SouthIMMATURE GRANULOCYTES ABS AUTO0.07HighNOResearch Belton HospitalImmature granulocytes/100 WBC (Bld)0.5 %0.0 - 0.5 %[facility] Interpretation and review of laboratory resultsAbnormalNOResearch Belton Hospital LYMPHOCYTES ABSOLUTE AUTO1.8NOMS [facility] Health SystemLymphocytes/100 WBC (Bld)13.3 %Low 20.5 - 60.0 %Research Medical CenterH (RBC) [Entitic mass]26.6 pg25.9 - 34.0 pgNOResearch Belton HospitalMCHC (RBC) [Mass/Vol]31.9 g/dL29.9 - 35.2 g/dLCox SouthMCV (RBC) [Entitic vol]83.5 fL80.0 - 94.0 fLNOResearch Belton HospitalMONOCYTES ABSOLUTE AUTO1.1High NOMS HealthcareMonocytes/100 WBC (Bld)7.8 %1.7 - 12.0 %[facility] Healthcare NEUTROPHILS ABSOLUTE AUTO9.3HighNOHI HealthcareNeutrophils/100 WBC (Bld)68.6 % 43.0 - 75.0 %[facility] HealthcarePlatelet mean volume (Bld) [Entitic vol]8.8 fLLow9.5 - 13.5 fLCox SouthTBH EO #1.3HighNOResearch Belton HospitalTB [id number] Regional Health Center RBC2.78LowNOWashington County Memorial Hospital WBC13.5HighCox SouthCLINISYNCNOMS HealthcareALL CBC WITH AUTO DIFFon 54-41-9731FSIOXLJZI ABSOLUTE AUTO0.1NOMS HealthcareBasophils/100 WBC (Bld)0.4 %0.2 - 2.0 %NOM HealthcareEosinophils/100 WBC (Bld)9 %High0.9 - 7.0 %[facility] SouthErythrocyte distribution width (RBC) [Ratio]14.5 %11.0 - 15.0 %[facility] SouthHematocrit (Bld) [Volume fraction]23.8 %Critically low42.0 - 54.0 %[facility] HealthcareComment on above:RESULTS CALLED TO ANGELICA RUBALCAVA RN at 1219Hemoglobin (Bld) [Mass/Vol]7.4 g/dLLow14.0 - 18.0 g/dLCox SouthIMMATURE GRANULOCYTES ABS AUTO0.08HighNOResearch Belton HospitalImmature granulocytes/100 WBC (Bld)0.6 %High0.0 - 0.5 %[facility] SouthInterpretation and review of laboratory resultsAbnormalCox SouthLYMPHOCYTES ABSOLUTE AUTO1.6 NOMSoutheast Missouri Community Treatment CenterLymphocytes/100 WBC (Bld)12.9 %Low20.5 - 60.0 %Research Medical CenterH (RBC) [Entitic mass]26.3 pg25.9 - 34.0 pgNOExcelsior Springs Medical CenterHC (RBC) [Mass/Vol] 31.1 g/dL29.9 - 35.2 g/dLResearch Medical CenterV (RBC) [Entitic vol]84.7 fL80.0 - 94.0 fLCox SouthMONOCYTES ABSOLUTE AUTO0.9HighNOMS HealthcareMonocytes/100 WBC (Bld)7.2 %1.7 - 12.0 %NOMS HealthcareNEUTROPHILS ABSOLUTE AUTO8.9HighNOMS HealthcareNeutrophils/100 WBC (Bld)69.9 %43.0 - 75.0 %NOMS HealthcarePlatelet mean volume (Bld) [Entitic vol]8.7 fLLow9.5 - 13.5 fLNOMS HealthcareTBH EO #1.2 HighNOMS HealthcareTBH [id number] HealthcareTBH RBC2.81LowNOMS HealthcareTBH WBC 12.7HighNOMS HealthcareCLINISYNCNOMS HealthcareUS ankle/arm indiceson 09-05-2024 US ankle/arm indicesMercy Health [facility] [address] [place] [address] Ultrasound Report Signed Patient: Ganga Stinson MR#: [id number] : 1960 Acct:[id number] Age/Sex: 64 / M ADM Date: 08/30/24 Loc: [facility] Room: Type: [facility] Attending Dr: [...] Navarro MD,FACS,FSVS 09/05/2024 12:35 PM Dictation Location: [place] [address] Tech: Livia Hawk Transcribed By: MARYANN 09/05/24 1235 Dictated By: Jesusita Navarro MD 09/05/24 1234 Signed By: 09/05/24 1235Ad[facility] Physician GroupALL CBC WITH AUTO DIFFon 54-73-8082QBQJGAACV ABSOLUTE AUTO0.1NOMS HealthcareBasophils/100 WBC (Bld)0.4 % 0.2 - 2.0 %[facility] SouthEosinophils/100 WBC (Bld)5 %0.9 - 7.0 %[facility] Erythrocyte distribution width (RBC) [Ratio]14.3 %11.0 - 15.0 %[facility] Hematocrit (Bld) [Volume fraction]23.4 %Critically low42.0 - 54.0 %[facility] SouthComment on above:RESULTS CALLED TO ANGELICA RUBALCAVA, RNHemoglobin (Bld) [Mass/Vol]7.3 g/dLLow14.0 - 18.0 g/dLCox SouthIMMATURE GRANULOCYTES ABS AUTO0.06HighNOResearch Belton HospitalImmature granulocytes/100 WBC (Bld)0.4 %0.0 - 0.5 % Cox SouthInterpretation and review of laboratory resultsAbnormalCox SouthLYMPHOCYTES ABSOLUTE AUTO1.6NOMS [facility] Health SystemLymphocytes/100 WBC (Bld) 11.5 %Low20.5 - 60.0 %Research Medical CenterH (RBC) [Entitic mass]26 pg25.9 - 34.0 pg [facility] SouthMCHC (RBC) [Mass/Vol]31.2 g/dL29.9 - 35.2 g/dLCox SouthMCV (RBC) [Entitic vol]83.3 fL80.0 - 94.0 fLCox SouthMONOCYTES ABSOLUTE AUTO 1.1HighNOResearch Belton HospitalMonocytes/100 WBC (Bld)8.2 %1.7 - 12.0 %[facility] NEUTROPHILS ABSOLUTE AUTO10.3HighCox SouthNeutrophils/100 WBC (Bld)74.5 % 43.0 - 75.0 %[facility]ox SouthPlatelet mean volume (Bld) [Entitic vol]8.9 fLLow9.5 - 13.5 fLCox SouthTB EO #0.7NOResearch Belton HospitalTB [id number] Belton HospitalTB RBC2.81LowSaint Mary's Health Center WBC13.8HighCox SouthCLINISYNCNBarnes-Jewish Saint [facility] ALL CBC WITH AUTO DIFFon 91-36-7411QFQKHKSIR ABSOLUTE AUTO0.1NOMS [facility] Basophils/100 WBC (Bld)0.4 %0.2 - 2.0 %NOMS [facility] SystemEosinophils/100 WBC (Bld) 5.1 %0.9 - 7.0 %[facility]ox SouthErythrocyte distribution width (RBC) [Ratio]15.3 %High11.0 - 15.0 %[facility] SouthHematocrit (Bld) [Volume fraction]22.9 % Critically low42.0 - 54.0 %[facility] HealthcareComment on above:RESULTS CALLED TO KRZYSZTOF FREED RNHemoglobin (Bld) [Mass/Vol]6.9 g/dLCritically low14.0 - 18.0 g/dLCox SouthComment on above:RESULTS CALLED TO KRZYSZTOF FREED RNIMMATURE GRANULOCYTES ABS AUTO0.05HighCox SouthImmature granulocytes/100 WBC (Bld) 0.4 %0.0 - 0.5 %Cox SouthInterpretation and review of laboratory results AbnormalNOResearch Belton HospitalLYMPHOCYTES ABSOLUTE AUTO1.3NOResearch Belton Hospital Lymphocytes/100 WBC (Bld)10.2 %Low20.5 - 60.0 %Research Medical CenterH (RBC) [Entitic mass]24.7 pgLow25.9 - 34.0 pgResearch Medical CenterHC (RBC) [Mass/Vol]30.1 g/dL29.9 - 35.2 g/dLResearch Medical CenterV (RBC) [Entitic vol]82.1 fL80.0 - 94.0 fLCox SouthMONOCYTES ABSOLUTE AUTO1.1HighCox SouthMonocytes/100 WBC (Bld) 8.1 %1.7 - 12.0 %Cox SouthNEUTROPHILS ABSOLUTE AUTO9.9HighC[facility] Neutrophils/100 WBC (Bld)75.8 %High43.0 - 75.0 %Cox SouthPlatelet mean volume (Bld) [Entitic vol]8.9 fLLow9.5 - 13.5 fLCox SouthTB EO #0.7NOMS [facility] SystemTB [id number] County Memorial Hospital RBC2.79LowNOWashington County Memorial Hospital WBC13.1High Cox SouthCLINISYNCNBarnes-Jewish Saint Peters HospitalALL CBC WITH AUTO DIFFon 03-10-2024 BASOPHILS ABSOLUTE AUTO0.1NOMS HealthcareBasophils/100 WBC (Bld)0.6 %0.2 - 2.0 % Cox SouthEosinophils/100 WBC (Bld)8.8 %High0.9 - 7.0 %[facility] Erythrocyte distribution width (RBC) [Ratio]14 %11.0 - 15.0 %[facility] Hematocrit (Bld) [Volume fraction]26.9 %Low42.0 - 54.0 %[facility] Hemoglobin (Bld) [Mass/Vol]8.1 g/dLLow14.0 - 18.0 g/dLCox SouthIMMATURE GRANULOCYTES ABS AUTO0.12HighNOResearch Belton HospitalImmature granulocytes/100 WBC (Bld) 0.9 %High0.0 - 0.5 %[facility] SouthInterpretation and review of laboratory resultsAbnormalCox SouthLYMPHOCYTES ABSOLUTE AUTO1.6NOMS [facility] Lymphocytes/100 WBC (Bld)12.2 %Low20.5 - 60.0 %Research Medical CenterH (RBC) [Entitic mass]24.9 pgLow25.9 - 34.0 pgCox SouthMCHC (RBC) [Mass/Vol]30.1 g/dL29.9 - 35.2 g/dLCox SouthMCV (RBC) [Entitic vol]82.8 fL80.0 - 94.0 fLCox SouthMONOCYTES ABSOLUTE KUOE5DkkiLAFA HealthcareMonocytes/100 WBC (Bld)7.3 %1.7 - 12.0 %[facility]ox SouthNEUTROPHILS ABSOLUTE AUTO9.3HighC[facility] Neutrophils/100 WBC (Bld)70.2 %43.0 - 75.0 %Cox SouthPlatelet mean volume (Bld) [Entitic vol]8.9 fLLow9.5 - 13.5 fLCox SouthTB EO #1.2HighNOResearch Belton HospitalTB CPR373XYDC [facility] SystemTB RBC3.25LowNOWashington County Memorial Hospital WBC13.2High Cox SouthCLINISYNCNOMS HealthcareECG 12-LEADon 94-62-5698X[address] [address] Electrocardiograph Report Signed Patient: GANGA STINSON MR#: [id number] : 1960 Acct:[id number] Age/Sex: 63 / M ADM Date: 03/10/24 Loc: PST Attending Dr: Jesus Hernandes D.P.M. Ordering Physician: Jesus Hernandes D.P.M. 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 Signed By: 03/10/24 1724 DD/ 1037 TD/TT: Milk Delivery Driver:TBHRadiology, Radiologist, MD - 03/10/2024 [place] [address] Electrocardiograph Report Signed Patient: GANGA STINSON MR#: [id number] : 1960 Acct:[id number] Age/Sex: 63 / M ADM Date: 03/10/24 Loc: PST Attending Dr: Jesus Hernandes D.P.M. Ordering Physician: Jesus Hernandes D.P.M. 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 Signed By: 03/10/24 1724 DD/ 1037 TD/TT: Milk Delivery Driver: DAISY HealthcareRadiology Study observation (narrative)[facility] HealthcareECG 12-LEAD Ordered By: Radiologist Radiology on 09-85-6895TFXD Healthcare Work Phone: SEGMENTAL BLOOD PRESSUREon [phone], [place] [address] Vein Report Signed Patient: GANGA STINSON MR#: [id number] : 1960 Acct:[id number] Age/Sex: 63 / M ADM Date: 03/06/24 Loc: [facility] Attending Dr: Jesus Hernandes D.P.M. Ordering Physician: Jesus Hernandes D.P.M. Date of Service: 03/06/24 Procedure(s): VC SEGMENTAL PRESSURES Accession Number(s): [id number] cc: Jesus Hernandes D.P.M.; Fidel Abbott M.D. [place] [id number] Patient Name: GANGA STINSON MRN: [id number] date: 1960 Sex: M Assigned Patient Location: Current Patient Location: Accession/Order Number: [id number] Exam Date: 03/06/2024 11:00 Report Date: 03/06/2024 [...] M.D. Signed By: 03/06/241415 DD/ 12 TD/TT: Milk Delivery Driver:ISAadiologlowell, Radiologist, - 03/06/2024 [place] [address] Vein Report Signed Patient: GANGA STINSON MR#: [id number] : 1960 Acct:[id number] Age/Sex: 63 / M ADM Date: 03/06/24 Loc: [facility] Attending Dr: Jesus Hernandes D.P.M. Ordering Physician: Jesus Hernandes D.P.M. Date of Service: 03/06/24 Procedure(s): VC SEGMENTAL PRESSURES Accession Number(s): [id number] cc: Jesus Hernandes D.P.M.; Fidel Abbott M.D. [place] [address] Patient Name: GANGA STINSON MRN: [id number] date: 1960 Sex: M Assigned Patient Location: Current Patient Location: Accession/Order Number: [id number] Exam Date: 03/06/2024 11:00 Report Date: 03/06/2024 [...] Signed By: 03/06/24 141 DD/ 12 TD/TT: Milk Delivery Driver: DAISY HealthcareRadiology Study observation (narrative)DAISY [facility] BLOOD PRESSUREOrdered By: Radiologist Radiology on [id number] South Work Phone: aLL SED RATEon [id number] and review of laboratory resultsAbnormalCox SouthTBH SED [id number] Healthcare CLINISYNCCox SouthBasic Metabolic Panelon 65-21-7232Iztqa gap [Moles/Vol] 9.9 mmol/LNormal6.0-15.0The Formerly [facility] Care Physician GroupComment on above:Performed By: #### CBC, BMP #### [place] [address] USACalcium [Mass/Vol]7.6 mg/dLLow8.6-10.3The Formerly [facility] Care Physician GroupComment on above:Performed By: #### CBC, BMP #### [facility] [address] [place] [address] USAChloride [Moles/Vol]106 mmol/QJbgont30-215Oqy Formerly [facility] Care Physician GroupComment on above:Performed By: #### CBC, BMP #### [facility] [address] [place] [id number] USACO2 [Moles/Vol]26.1 mmol/OPicymv19.0-31.0The Formerly [facility] Care Physician GroupComment on above:Performed By: #### CBC, BMP #### [facility] [address] [place] [id number] USACreatinine [Mass/Vol]1.59 mg/dLHigh0.70-1.30The Formerly [facility] Care Physician GroupComment on above:Performed By: #### CBC, BMP #### [facility] [address] [place] [id number] USAGFR/1.73 sq M.predicted MDRD (S/P/Bld) [Vol rate/Area] 48.779 mL/min/{1.73_m2}NormalThe Formerly [facility] Health Care Physician GroupComment on above: Performed By: #### CBC, BMP #### [facility] [address] [place] [address] USAGlucose [Mass/Vol]128 mg/gSNdct71-649Qjv Formerly [facility] Care Physician GroupComment on above:Result Comment: Random Glucose Reference Range is dependent on time and content of last meal. Glucose of more than 200 mg/dL in a nonstressed, ambulatory subject supports the diagnosis of Diabetes Mellitus. ADA recommended reference rangePerformed By: #### CBC, BMP #### [facility] [address] [place] [address] USAPotassium [Moles/Vol]4.0 mmol/LNormal3.5-5.1The Formerly [facility] Care Physician GroupComment on above:Performed By: #### CBC, BMP #### [facility] [address] [place] [address] USASodium [Moles/Vol]138 mmol/WUihkkh623-669Gnq Former[facility] Care Physician GroupComment on above:Performed By: #### CBC, BMP #### [facility] [address] [place] [address] USAUrea nitrogen [Mass/Vol]24 mg/dLNormal7-25The Formerly [facility] Care Physician GroupComment on above:Performed By: #### CBC, BMP #### [facility] [address] [place] [address] USABasophils Auto (Bld) [#/Vol]Ordered By: Nina River on 27-95-5632Tebnkjaee (Bld) [#/Vol]Automated basophil count0.0-0.2FSelect Medical Specialty Hospital - Southeast OhioBasophils/100 WBC Auto (Bld)Ordered By: Nina Aleta on 87-91-3045Rsmqrvglf/100 WBC (Bld)Automated basophil %.[facility]id HospitalC reactive protein [Mass/volume] in Serum or PlasmaOrdered By: Nina River on 58-38-3713OTG [Mass/Vol]C reactive protein [Mass/volume] in Serum or PlasmaHigh0.0-0.5FSelect Medical Specialty Hospital - Southeast OhioC-Reactive Proteinon 01-77-1417C-Reactive Yikutzs14.7 mg/dLHigh0.0-0.5The [facility] Comment on above:Performed By: #### CBC, BMP #### [facility] [address] [place] [address] USACalcium [Mass/volume] in Serum or PlasmaOrdered By: Nina River on 37-33-9783Exgzhlk [Mass/Vol]Calcium [Mass/volume] in Serum or PlasmaLow8.6-10.3FSelect Medical Specialty Hospital - Southeast OhioCarbon dioxide, total [Moles/volume] in Serum or PlasmaOrdered By: Nina River on 91-66-8169KO0 [Moles/Vol]Carbon dioxide, total [Moles/volume] in Serum or Ucmiej51.0-31.0 [facility] HospitalChloride [Moles/volume] in Serum or Plasma Ordered By: Nina River on 14-44-8633Drjjifyo [Moles/Vol]Chloride [Moles/volume] in Serum or Bisfgc56-762OusxhkqymCleveland Clinic Euclid HospitalComplete Blood Count Auto Diffon 91-39-2980Xvoquvmqi (Bld) [#/Vol]0.0 10*3/uLNormal 0.0-0.2The Formerly [facility] Care Physician GroupComment on above:Performed By: #### CBC, BMP, FE PRO, B12, ESR, CRP #### [facility] [address] [place] [address] USABasophils/100 WBC (Bld)0.4 %Normal.The Formerly [facility] Care Physician GroupComment on above:Performed By: #### CBC, BMP, FE PRO, B12, ESR, CRP #### [facility] [address] [place] [address] USAEosinophils (Bld) [#/Vol]0.2 10*3/uLNormal0.0-0.45The Formerly [facility] Care Physician GroupComment on above:Performed By: #### CBC, BMP, FE PRO, B12, ESR, CRP #### [facility] [address] [place] [address] USAEosinophils/100 WBC (Bld)2.4 %Normal.The Formerly [facility] Care Physician GroupComment on above:Performed By: #### CBC, BMP, FE PRO, B12, ESR, CRP #### [place] [address] USAErythrocyte distribution width (RBC) [Ratio]15.2 %High 12.0-14.8The Formerly [facility] Care Physician GroupComment on above:Performed By: #### CBC, BMP, FE PRO, B12, ESR, CRP #### [place] [address] USAHematocrit (Bld) [Volume fraction]23.1 %Low38.8-50.0The Formerly [facility] Care Physician GroupComment on above:Performed By: #### CBC, BMP, FE PRO, B12, ESR, CRP #### [place] [address] USAHemoglobin (Bld) [Mass/Vol]7.8 g/dLLow13.0-17.0The Formerly [facility] Care Physician GroupComment on above:Performed By: #### CBC, BMP, FE PRO, B12, ESR, CRP #### [place] [address] USALymphocytes (Bld) [#/Vol]0.7 10*3/uLLow1.00-4.8The Formerly [facility] Care Physician GroupComment on above:Performed By: #### CBC, BMP, FE PRO, B12, ESR, CRP #### [place] [address] USALymphocytes/100 WBC (Bld)7.0 %Normal.The Formerly [facility] Care Physician GroupComment on above:Performed By: #### CBC, BMP, FE PRO, B12, ESR, CRP #### [place] [address] USAMCH (RBC) [Entitic mass]26.8 pgLow27.5-35.2The Formerly [facility] Care Physician GroupComment on above:Performed By: #### CBC, BMP, FE PRO, B12, ESR, CRP #### [place] [address] USAMCV (RBC) [Entitic vol]79.5 fLLow83.5-101The Formerly [facility] Care Physician GroupComment on above:Performed By: #### CBC, BMP, FE PRO, B12, ESR, CRP #### [place] [address] USAMean Corpuscular HGB Conc33.7 g/xWYchlnw32.5-35.6The Formerly [facility] Care Physician GroupComment on above:Performed By: #### CBC, BMP, FE PRO, B12, ESR, CRP #### [place] [address] USAMonocytes (Bld) [#/Vol]0.5 10*3/uLNormal0.0-0.8The Formerly [facility] Care Physician GroupComment on above:Performed By: #### CBC, BMP, FE PRO, B12, ESR, CRP #### [place] [address] USAMonocytes/100 WBC (Bld)4.8 %Normal.The Formerly [facility] Care Physician GroupComment on above:Performed By: #### CBC, BMP, FE PRO, B12, ESR, CRP #### [place] [address] USANeutrophils (Bld) [#/Vol]9.0 10*3/uLHigh1.8-7.7The Formerly [facility] Care Physician GroupComment on above:Performed By: #### CBC, BMP, FE PRO, B12, ESR, CRP #### [place] [address] USANeutrophils/100 WBC (Bld)85.4 %Normal.The Formerly [facility] Care Physician GroupComment on above:Performed By: #### CBC, BMP, FE PRO, B12, ESR, CRP #### [place] [address] USANRBC%0.0 /100{WBC}Normal0-0.5The [facility] Comment on above:Performed By: #### CBC, BMP, FE PRO, B12, ESR, CRP #### [place] [address] USAPlatelet mean volume (Bld) [Entitic vol]6.7 fLNormal 6.6-10.1The Formerly [facility] Care Physician GroupComment on above:Performed By: #### CBC, BMP, FE PRO, B12, ESR, CRP #### [facility] [address] [place] [address] USAPlatelets (Bld) [#/Vol]220 10*3/hYCiafii884-045Gpi Formerly [facility] Care Physician GroupComment on above:Performed By: #### CBC, BMP, FE PRO, B12, ESR, CRP #### [facility] [address] [place] [address] USARBC (Bld) [#/Vol]2.91 10*6/uLLow3.90-5.60The Formerly [facility] Care Physician GroupComment on above:Performed By: #### CBC, BMP, FE PRO, B12, ESR, CRP #### [facility] [address] [place] [address] USAWBC (Bld) [#/Vol]10.5 10*3/uLNormal4.1-10.5The Formerly [facility] Care Physician GroupComment on above:Performed By: #### CBC, BMP, FE PRO, B12, ESR, CRP #### [place] [address] USACreatinine [Mass/volume] in Serum or PlasmaOrdered By: Nina River on 26-01-0814Ladawzjpzv [Mass/Vol]Creatinine [Mass/volume] in Serum or PlasmaHigh0.70-1.30[facility] HospitalEosinophils Auto (Bld) [#/Vol]Ordered By: Nina River on 07-82-5187Tjsoppxjvrd (Bld) [#/Vol] Automated eosinophil count0.0-0.45[facility] Eosinophils/100 WBC Auto (Bld)Ordered By: Nina River on 02-08-2024 Eosinophils/100 WBC (Bld)Automated eosinophil %.[facility] HospitalErythrocyte Sedimentation Rateon 93-90-6249ZOK (Bld) [Velocity]44 mm/hHigh 0-19The Formerly [facility] Care Physician GroupComment on above:Result Comment: PERFORMED BY: [place] [address] PATHOLOGIST [employer]ILMASTER FARRAH PAUL M.D.Performed By: #### CBC, BMP, FE PRO, B12, ESR, CRP #### [place] [address] USAErythrocyte distribution width Auto (RBC) [Ratio]Ordered By: Ninastefan River on 42-18-8859Bzixnjcrdkf distribution width (RBC) [Ratio] Erythrocyte distribution width [Ratio] by Automated bywqbRhxr44.0-14.8[facility] HospitalErythrocyte sedimentation rate by Photometric method Ordered By: Nina Aleta on 50-06-4970BOB Photometric method (Bld) [Velocity] Erythrocyte sedimentation rate by Photometric methodHigh0-19[facility] HospitalFE PROon 02-08-2024% Iron SaturationNot dfynttnpnZzfrkq86-62Qoc Formerly [facility] Care Physician GroupComment on above:Performed By: #### CBC, BMP #### [place] [address] USAFerritin [Mass/Vol]422.9 ng/uDMxnq76.9-336.2The Formerly [facility] Care Physician GroupComment on above:Performed By: #### CBC, BMP #### [place] [address] USAIron [Mass/Vol]ug/nUQmu23-038Nor [facility] Comment on above:Performed By: #### CBC, BMP #### [place] [id number] USATotal Iron Binding Kyugrgvj852 ug/zBWpu811-173Zaz Formerly [facility] Care Physician GroupComment on above:Performed By: #### CBC, BMP #### [place] [id number] USATransferrin [Mass/Vol]125 mg/fBBxy801-069Fai Formerly [facility] Care Physician GroupComment on above:Performed By: #### CBC, BMP #### [place] [address] USAFerritin [Mass/volume] in Serum or PlasmaOrdered By: Nina River on 57-35-8491Dtbjrufy [Mass/Vol]Ferritin [Mass/volume] in Serum or WubmbvHppx77.9-336.2FSelect Medical Specialty Hospital - Southeast OhioGlucose [Mass/volume] in Serum or PlasmaOrdered By: Nina River on 05-91-6297Jypgdsb [Mass/Vol] Glucose [Mass/volume] in Serum or JuoofePonx72-612DifbygiyxCleveland Clinic Euclid HospitalComment on above:ADA recommended reference rangeRandom Glucose Reference Range is dependent on time and content of last meal. Glucose of more than 200 mg/dL in a nonstressed, ambulatory subject supports the diagnosisof Diabetes Mellitus.Hematocrit Auto (Bld) [Volume fraction]Ordered By: Nina River on 48-69-2028Qfjuwnwayy (Bld) [Volume fraction]Hematocrit [Volume Fraction] of Blood by Automated huhikNvx21.8-50.0[facility] HospitalHemoglobin [Mass/volume] in BloodOrdered By: Nina River on 20-83-6641Oopgwshlmz (Bld) [Mass/Vol]Hemoglobin [Mass/volume] in GmjwsYfk12.0-17.0[facility] HospitalIron [Mass/volume] in Serum or PlasmaOrdered By: Nina River on 97-80-3405Sosd [Mass/Vol]Iron [Mass/volume] in Serum or XlyvklPar95-857 [facility] HospitalLeukocytes [#/volume] corrected for nucleated erythrocytes in Blood by Automated counOrdered By: Nina River on 02-08-2024 WBC corrected for nucl RBC Auto (Bld) [#/Vol]Leukocytes [#/volume] corrected for nucleated erythrocytes in Blood by Automated coun4.1-10.5FSelect Medical Specialty Hospital - Southeast OhioLymphocytes Auto (Bld) [#/Vol]Ordered By: Nina River on 19-09-7799Ifedozluqth (Bld) [#/Vol]Lymphocytes [#/volume] in Blood by Automated countLow1.00-4.8[facility] HospitalLymphocytes/100 WBC Auto (Bld) Ordered By: Nina River on 83-69-5570Lzjytqtjsmx/100 WBC (Bld)Lymphocytes/100 leukocytes in Blood by Automated count.[facility] HospitalH Auto (RBC) [Entitic mass]Ordered By: Nina River on 13-95-8543KQW (RBC) [Entitic mass]MCH [Entitic mass] by Automated fnpwwTrs96.5-35.2FSelect Medical Specialty Hospital - Southeast OhioMCHC Auto (RBC) [Mass/Vol]Ordered By: Nina Aleta on 67-69-7665TSZM (RBC) [Mass/Vol]MCHC [Mass/volume] by Automated count32.5-35.6 [facility] HospitalMCV Auto (RBC) [Entitic vol]Ordered By: Nina Aleta on 76-57-0090CPV (RBC) [Entitic vol]MCV [Entitic volume] by Automated bqssrBlf81.5-101C[facility] HospitalMonocytes Auto (Bld) [#/Vol] Ordered By: Nina River on 86-76-0639Rtdpatzsz (Bld) [#/Vol]Automated blood monocyte count0.0-0.8[facility] HospitalMonocytes/100 WBC Auto (Bld)Ordered By: Nina River on 38-02-6818Ubrrqcdnb/100 WBC (Bld)Automated monocyte %.[facility] HospitalNeutrophils Auto (Bld) [#/Vol] Ordered By: Nina Aleta on 75-25-4308Zipngypxyfs (Bld) [#/Vol]Neutrophils [#/volume] in Blood by Automated countHigh1.8-7.7FSelect Medical Specialty Hospital - Southeast OhioNeutrophils/100 WBC Auto (Bld)Ordered By: Nina River on 02-08-2024 Neutrophils/100 WBC (Bld)Automated neutrophil %.[facility] HospitalNo Panel InformationOrdered By: Nina River on 62-14-9450Svwyyoieh GFR (CKD-EPI)48.779 mL/MinCleveland Clinic Euclid HospitalPharmacy Creatinine Clearance (ChemN/[facility] HospitalNucleated erythrocytes [Presence] in Blood by Automated countOrdered By: Nina River on 02-08-2024 Nucleated RBC Auto Ql (Bld)Nucleated erythrocytes [Presence] in Blood by Automated count0-0.5FSelect Medical Specialty Hospital - Southeast OhioPlatelet mean volume Auto (Bld) [Entitic vol]Ordered By: Nina River on 70-46-8116Hdtmdkkb mean volume (Bld) [Entitic vol]Platelet mean volume [Entitic volume] in Blood by Automated count6.6-10.1FSelect Medical Specialty Hospital - Southeast OhioPlatelets Auto (Bld) [#/Vol] Ordered By: Nina Aleta on 95-66-3400Uksngwgqw (Bld) [#/Vol]Platelets [#/volume] in Blood by Automated cyvur053-692ClebgnmtyCleveland Clinic Euclid Hospital Potassium [Moles/volume] in Serum or PlasmaOrdered By: Nina River on 90-15-5217Jlfgkzpyw [Moles/Vol]Potassium [Moles/volume] in Serum or Plasma 3.5-5.1FSelect Medical Specialty Hospital - Southeast OhioRBC Auto (Bld) [#/Vol]Ordered By: Nina River on 07-54-7535MZY (Bld) [#/Vol]Erythrocytes [#/volume] in Blood by Automated countLow3.90-5.60[facility] Ahuja Medical Centererum or plasma anion gap determinationOrdered By: Nina River on 17-40-7152Raeig gap [Moles/Vol]Serum or plasma anion gap determination6.0-15.0[facility] Ahuja Medical Centererum or plasma iron binding capacity measurement (mass/volume) Ordered By: Nina River on 55-74-9653Cbmc binding capacity [Mass/Vol]Iron binding capacity [Mass/volume] in Serum or AxmheaOdd448-751LkquaabylUniversity Hospitals Ahuja Medical Centererum or plasma iron saturation measurement (mass fraction)Ordered By: Nina River on 84-38-3301Wvdz saturation [Mass fraction]Iron saturation [Mass Fraction] in Serum or PlasmaCleveland Clinic Euclid HospitalComment on above:Test not performedSodium [Moles/volume] in Serum or PlasmaOrdered By: Nina River on 31-14-7125Djalgv [Moles/Vol]Sodium [Moles/volume] in Serum or Xoujdh828-002VtldbtxbvCleveland Clinic Euclid HospitalTransferrin [Mass/volume] in Serum or PlasmaOrdered By: Nina River on 79-55-6953Yxdkfjnzfyi [Mass/Vol] Transferrin [Mass/volume] in Serum or VeqvvhBac719-693RjypspcusCleveland Clinic Euclid HospitalUrea nitrogen [Mass/volume] in Serum or PlasmaOrdered By: Ninastefan River on 41-73-9623Ilto nitrogen [Mass/Vol]Urea nitrogen [Mass/volume] in Serum or Plasma7-25[facility]id HospitalVitamin B12on 33-68-9079Fjtcuazyi (Vitamin B12) [Mass/Vol]701 pg/aCMnkmhp124-871Mqr [facility] Comment on above:Result Comment: PERFORMED BY: [place] [address] PATHOLOGIST MAILMASTER FARRAH PAUL M.D.Performed By: #### CBC, BMP #### [place] [address] USAVitamin B12 ser/plasOrdered By: Nina River on 43-50-6982Jqezttwea (Vitamin B12) [Mass/Vol]Vitamin B12 ser/vynd850-340GtjpordsaCleveland Clinic Euclid HospitalWBC Auto (Bld) [#/Vol]Ordered By: Nina River on 43-82-4111WUA (Bld) [#/Vol]Leukocytes [#/volume] in Blood by Automated count 4.1-10.5FSelect Medical Specialty Hospital - Southeast OhioALL CBC WITH AUTO DIFFon 12-02-2023 BASOPHILS ABSOLUTE AUTO0.0NOMS HealthcareBasophils/100 WBC (Bld)0.3 %0.2 - 2.0 % [facility] HealthcareEosinophils/100 WBC (Bld)6.4 %0.9 - 7.0 %[facility] Erythrocyte distribution width (RBC) [Ratio]16.8 %High11.0 - 15.0 %[facility]OMS HealthcareHematocrit (Bld) [Volume fraction]29.4 %Low42.0 - 54.0 %[facility] HealthcareHemoglobin (Bld) [Mass/Vol]9.0 g/dLLow14.0 - 18.0 g/dLNOMS Healthcare IMMATURE GRANULOCYTES ABS AUTO0.04HighNOMS HealthcareImmature granulocytes/100 WBC (Bld)0.4 %0.0 - 0.5 %[facility] HealthcareInterpretation and review of laboratory resultsAbnormalUINTAH BASIN [facility] HealthcareLYMPHOCYTES ABSOLUTE AUTO1.8NOMS [facility] Lymphocytes/100 WBC (Bld)17.7 %Low20.5 - 60.0 %[facility] Medical CenterH (RBC) [Entitic mass]25.3 pgLow25.9 - 34.0 pgResearch Medical CenterHC (RBC) [Mass/Vol]30.6 g/dL29.9 - 35.2 g/dLResearch Medical CenterV (RBC) [Entitic vol]82.6 fL80.0 - 94.0 fLCox SouthMONOCYTES ABSOLUTE AUTO0.7NOHI HealthcareMonocytes/100 WBC (Bld)6.7 % 1.7 - 12.0 %[facility] HealthcareNEUTROPHILS ABSOLUTE AUTO7.1HighNOResearch Belton Hospital Neutrophils/100 WBC (Bld)68.5 %43.0 - 75.0 %Cox SouthPlatelet mean volume (Bld) [Entitic vol]8.8 fLLow9.5 - 13.5 fLNOResearch Belton HospitalTBH EO #0.7NOMS HealthcareTB WOO339RCBQ [facility] SystemTB RBC3.56LowNOMS [facility] Health SystemTB WBC10.3NOHI HealthcareCLINISYNCNOMS HealthcareBONE MARROWon 09-28-7577HPYQ MARROWSEE SEPARATE REPORTNormalProMedica Santa Ana Hospital Medical CenterComment on above:Result Comment: REVIEWED BY SOLEDAD HUYNH M.D.Performed By: #### EXHR, 64134-0, MDSDF #### [facility] ([id number]) [address] [place] [address], [place] [address] #### 47465-3, BONMAR #### [facility] ([id number]) [address] [place] [address], [address] [place], [place] [address]GPY AND AUTO DIFFon 20-00-7653RGPIYZUY BASOPHIL0.0 X10E9/LNormal 0.0-0.2Pro[facility] Hospital Medical CenterComment on above:Performed By: #### PINPratik, CBCA #### [facility] ([id number]) [address] [place] [address] 32298JTIIGWIT NEUTROPHIL8.0 X10E9/LHigh1.5-6.6[facility] HospitalComment on above:Performed By: #### MINDY HANNAH #### [facility] ([id number]) [address] [place] [address] 82301Ynjlrhnhz/100 WBC (Bld)0.3 %[facility] Comment on above:Performed By: #### MINDY HANNAH #### [facility] ([id number]) [address] [place] [address] 88592Lsylntrmrcs (Bld) [#/Vol]0.5 10*3/uLHigh0.0-0.4[facility] HospitalComment on above:Performed By: #### MINDY HANNAH #### [facility] ([id number]) [address] [place] [address] 24151Nrjgtkxadtc/100 WBC (Bld)4.4 %[facility] Comment on above:Performed By: #### MINDY HANNAH #### [facility] ([id number]) [address] [place] [address] 04021Kqpcbdsaijh distribution width (RBC) [Ratio]16.8 %High11.5-15.0 [facility] Valley HospitalComment on above:Performed By: #### MINDY HANNAH #### [facility] ([id number]) [address] [place] [address] 28917Tcnjfzgrpg (Bld) [Volume fraction]20.1 %Goo77-00VpgLgukovBlanchard Valley Health System Blanchard Valley HospitalComment on above:Performed By: #### MINDY HANNAH #### [facility] ([id number]) [address] [place] [address] 24592Krdppimgnd (Bld) [Mass/Vol]6.6 g/dLCritically low13.0-17.0 [facility] Centeredica Santa Ana Hospital Medical CenterComment on above:Performed By: #### MINDY HANNAH #### [facility] ([id number]) [address] [place] [address] 35975Zjpuuemodtt (Bld) [#/Vol]1.4 10*3/uLNormal1.0-3.5ProMedica [facility] Hospital Medical CenterComment on above:Performed By: #### [place] CBCGeoff #### [facility] ([id number]) [address] [place] [address] 94413Esouzyykzam/100 WBC (Bld)13.0 %NormalBlanchard Valley Health System [facility] Comment on above:Performed By: #### MINDY HANNAH #### [facility] ([id number]) [address] [place] [address] 57287NXU (RBC) [Entitic mass]24.7 etDpo81-05LtyMcsqtaBlanchard Valley Health System [facility]anchard Valley HospitalComment on above:Performed By: #### [place] CBCGeoff #### [facility] ([id number]) [address] [place] [address] 45926PZCH (RBC) [Mass/Vol]32.6 g/lYHqdipn17-41EwgRzlxhmBlanchard Valley Health System [facility] Valley HospitalComment on above:Performed By: #### MINDY HANNAH #### [facility] ([id number]) [address] [place] [address] 21716PXW (RBC) [Entitic vol]76 qPEzt69-640IqbYmbdetBlanchard Valley Health System [facility] Comment on above:Performed By: #### [place] CBCA #### [facility] ([id number]) [address] [place] [address] 11064Yeuvcwlaf (Bld) [#/Vol]0.9 10*3/uLNormal0-0.9[facility] Valley HospitalComment on above:Performed By: #### PINR, CBCA #### [facility] ([id number]) [address] [place] [address] 40925Npnhljwva/100 WBC (Bld)8.2 %[facility] Comment on above:Performed By: #### MINDY HANNAH #### [facility] ([id number]) [address] [place] [address] 37958Jqwuijytmqq/100 WBC (Bld)74.1 %[facility] Comment on above:Performed By: #### MINDY HANNAH #### [facility] ([id number]) [address] [place] [address] 11803Msztjhzz mean volume (Bld) [Entitic vol]7.0 fLNormal7-12 [facility] Valley HospitalComment on above:Performed By: #### MINDY HANNAH #### [facility] ([id number]) [address] [place] [address] 51340Prlxmyxdm (Bld) [#/Vol]371 10*3/wCNyxtgj921-643UseIejwpvBlanchard Valley Health System [facility] Valley HospitalComment on above:Performed By: #### MINDY HANNAH #### [facility] ([id number]) [address] [place] [address] 14424WVR COUNT2.66 X10E12/LLow4.10-5.70[facility] Comment on above:Performed By: #### [place] CBCA #### [facility] ([id number]) [address] [place] [address] 61266ZQG (Bld) [#/Vol]10.8 10*3/uLNormal4.0-11.0[facility] Valley HospitalComment on above:Performed By: #### TONY HANNAHA #### [facility] ([id number]) [address] [place] [address] 26[address]YEH and RNA Extract and Holdon 73-36-8157SPY and RNA Extract and HoldSEE COMMENTS 10/14/2023 08:52 AMNormalProMedica West Hills [facility] Center on above:Result Comment: NOTE Test Result Flag [...] catalog, please contact [facility] at [phone]. Method summary: DNA and RNA were extracted from the received specimen and stored at -80 C. This test was developed and its performance characteristics determined by [facility] in a manner consistent with CLIA requirements. This test has not been cleared or approved by the U.S. Food and Drug Administration. Test Performed by: [address] [address] Engagement Specialist: Rosie Ruby Ph.D.; CLIA# [id number] By: #### KIM, 33465-2, BERNABE #### [facility] ([id number]) [address] [place] [address] #### 19973-2, PENNY #### [facility] ([id number]) [address] [place] [address], [address] [place], [place] [address]Uzhb cytometry specialist review Álvaro (Unsp spec) [Interp]on [id number] CYTOMETRY BMSEE SEPARATE REPORT, REVIEWED BY PATHOLOGISTNormal [facility] on above:Performed By: #### KIM, 42870-5, MDSMARYANN #### [facility] ([id number]) [address] [address] [facility], [place] [address] #### 62765-4, PENNY #### [facility] ([id number]) [address], [address] [place], [place] [address]SW BX AND ASP BONE MARROW SNGL OR MULTon 69-96-4993MB BX AND ASP BONE MARROW SNGL OR [...] on the left iliac bone using an Resilience powered bone marrow biopsy system. The bone [...] by Khadar Guerrero MD on 10/11/2023 9:49 AMNormalBlanchard Valley Health System Blanchard Valley HospitalKaryotype Nom (BM)on 48-55-8631VBLLHIEIAY BONE MARROWSEE COMMENTS 10/19/2023 02:37 PMNormalBlanchard Valley Health System Blanchard Valley HospitalComment on above:Result Comment: NOTE Test Result Flag Unit RefValue Chromosomes, Hematologic, BM Result Summary Normal Interpretation See Note No clonal abnormality was apparent. Since this conventional chromosome study was successful, MDS, Diag FISH was cancelled per lab protocol (Isma Christie et al., [facility], 146:86-94, 2016; [facility] MDS Algorithm: www.kindred hospital north floridalabs.com/it-mmfiles/Myelodysplastic_Syndrome_G uideline_to_Diagnosis_and_Follow-up.pdf). Result 46,XY[20] Reason for Referral leukocytosis Specimen Bone Marrow Source Left iliac crest Method Culture without mitogens Banding Method See Note Band Resolution: <400 Stain Name Cells Analyzed Cells Karyograms Counted Prepared GTL 20 0 2 Total 20 0 2 Kholi to Stain Name: GTL=G-banding; QFQ=Q-banding; DAPI=DAPI-staining; CBL=C-banding; AGNOR=Silver-staining; NON=Non-banded The sum of Cells Analyzed and Cells Counted equals the total cells examined. Additional Information See Note A portion of the testing process was performed at [facility] site 315019. Released By Tanvi Loo M.D. Test Performed by: [facility] - [address] [address] Engagement Specialist: Rosie Ruby Ph.D.; CLIA# [id number] By: #### EXHR, 03129-0, MDSDF #### [facility] ([id number]) [address] [place] [address] #### 37085-0, PENNY #### [facility] ([id number]) [address] [facility] [facility], [address] [place], [place] [address]CXBLSIHJQLIIDWJ SYNDROME (MDS),DIAGNOSTIC FISH, Jerry 69-73-7059XYKWONURPHJTCKH SYNDROME (MDS),DIAGNOSTIC FISH, ANGELA COMMENTS 10/22/2023 08:45 AMNormalSycamore Medical Centerca [facility] Medical CenterComment on above:Result Comment: NOTE Test Result Flag Unit RefValue MDS, Diagnostic FISH Interpretation TNP MDS, Diagnostic FISH was cancelled on 10/22/2023 at 08:41; Based on other test results additional testing not required. MDS FISH order was cancelled per laboratory protocol (Isma et al., Amer J Clin Pathol 146:86-94, 2016; [facility] MDS Algorithm: www.[email or web address].com/it-mmfiles/Myelodysplastic_S yndrome_Guideline_ to_Diagnosis_and_Follow-up.pdf) with Probes -RPN1(G)/MECOM(R), -TP53(R)/D17Z1(G), -D8Z2(G)/MYC(R), -E87J864(R)/20QTER(G), -R0D612(G)/EGR1(R), -D7Z1(G)/E4D706(R) Test Performed by: [facility] [place] [address] Engagement Specialist: Rosie Ruby Ph.D.; CLIA# [id number] By: #### EXHR, 63484-0, MDSDF #### [facility] ([id number]) [address] [place] [address] #### 59686-4, PENNY #### [facility] ([id number]) [address] [place] [address], [address] [place], [place] [address]XBRRGZV AND INRon 49-70-2722YDT Coag (PPP) [Relative time]1.3 {INR}High0.8-1.1PChillicothe VA Medical CenterComment on above:Performed By: #### PINR, CBCA #### [facility] ([id number]) [address] [place] [address]CZ Coag (PPP) [Time]14.9 sHigh9.8-13.2PChillicothe VA Medical CenterComment on above:Result Comment: NEW REFERENCE RANGEPerformed By: #### PINR, CBCA #### [facility] ([id number]) [address] [place] [address]Kemxhhvr Pathologyon 14-54-4128Lzmaegya PathologyNormal [facility] Bl[facility] Valley HospitalComment on above:Result Comment: [facility] [address] [place] [address] Bone Marrow Consultation Patient Name:GANGA STINSON:1960 (Age: 63)Gender:MTaken:4Reported:4Physician(s):Nina River ([phone])Copy To:Khadar Guerrero M.D. Rec. #: [id number]: #[id number] Final Pathologic Diagnosis Bone marrow, aspiration and [...] acquisition are identified on maturing myeloid cells. [place] on the lymphoid population demonstrates a mixed population of phenotypically unremarkable T-cells, polyclonal B-cells, and natural killer cells, without a detectable monoclonal population. No monotypic plasma cell population is identified. Immunophenotyping antibodies tested: CD2, CD3, CD4, CD5, CD7, CD8, CD10, CD13, CD16, CD19, CD20 , CD23, CD33, CD34, CD38, CD43, CD45, CD56, CD117, CD123, CD138, [place], Lambda. Cytoplasmic [place]/CD38,Cytoplasmic Lambda/CD38, and intrinsic VS38 Immunophenotyping Comment: Immunophenotyping has been used in this diagnostic evaluation. This test was developed and its performance characteristics determined by the [facility] Department. It has not been [...] Out Soledad Huynh MD Interpretation performed [place] [address], License number: [id number]. Clinical History Leukocytosis. Gross Description 1. Received in B plus fixative labeled ALLOWAY, clot is a friable portion of hemorrhagic material, 2.2 x 1.0 x 0.4 cm in aggregate. The specimen is submitted entirely in a single cassette. (1, ns, [id number], m1) LADONNA 2. Received in B plus fixative labeled [place], core is a pale osborne-pardo cylindrical segment of bone with adherent hemorrhagic material, 1.0 cm in length and 0.2 cm in diameter. The specimen is submitted entirely in a single cassette following a period of decalcification in Rapid-Delbert Immuno. (1, ns, [id number], m1) LADONNA Comment: Per epic IR procedure [...] (BldC) [Mass/Vol] Ordered By: Jonathan Moffett on 84-81-6012Lgzrikg [Mass/Vol]134 mg/dLCleveland Clinic Euclid HospitalComment on above:Random Glucose Reference Range is dependent on time and content of last meal. Glucose of more than 200 mg/dL in a nonstressed, ambulatory subject supports the diagnosis of Diabetes Mellitus.Gram stain for investigation of transfusion reactionOrdered By: Jonathan Moffett on 46-50-0165Bjrnvjflicu observation Gram stain Nom (Unsp spec)Prevotella disiens [facility] Euclid HospitalMR ANKLE LT WO CONon 42-21-1302[place], [place] [address] Magnetic Resonance Report Signed Patient: GANGA STINSON MR#: [id number] : 1960 Acct:[id number] Age/Sex: 62 / M ADM Date: 05/18/23 Loc: MRI Attending Dr: JONATHAN MOFFETT Ordering Physician: JONATHAN MOFFETT Date of Service: 05/18/23 Procedure(s): ankle LT wo con Accession Number(s): [id number] cc: JONATHAN MOFFETT ; Fidel Abbott M.D. [facility] [place] [address] Patient Name: GANGA STINSON MRN: [id number] date: 1960 Sex: M Assigned Patient Location: MRI Current Patient Location: MRI Accession/Order Number: [id number] Exam Date: 05/18/2023 10:51 Report Date: 05/18/2023 [...] Signed By: 05/18/23 1648 DD/ 1605 TD/TT: Milk Delivery Driver:TBHRadiology, Radiologist, - 05/18/2023 [place] [address] Magnetic Resonance Report Signed Patient: GANGA STINSON MR#: [id number] : 1960 Acct:[id number] Age/Sex: 62 / M ADM Date: 05/18/23 Loc: MRI Attending Dr: JONATHAN MOFFETT Ordering Physician: JONATHAN MOFFETT Date of Service: 05/18/23 Procedure(s): MR ankle LT wo con Accession Number(s): [id number] cc: JONATHAN MOFFETT ; Fidel Abbott M.D. [facility] [place] [id number] Patient Name: GANGA STINSON MRN: [id number] date: 1960 Sex: M Assigned Patient Location: MRI Current Patient Location: MRI Accession/Order Number: [id number] Exam Date: 05/18/2023 10:51 Report Date: 05/18/2023 [...] Signed By: 05/18/23 1648 DD/ 1605 TD/TT: Milk Delivery Driver: DAISY [facility] Health SystemRadiology Study observation (narrative)[facility] ANKLE LT WO CONOrdered By: Radiologist Radiology on 89-35-2387[facility] Work Phone: cult,Urineon 60-52-3408Pgbs,UrineSpecimen Description .CLEAN CATCH URINE Culture NO SIGNIFICANT GROWTH Report Status FINAL 09/26/2022NoAultman Orrville HospitalComment on above: Performed By: #### CMPX, CDP #### [facility] [address] [place], [place] [address] Engagement Specialist: ANICETO Ortega RENAL COMPLETEon 73-82-9439WH RENAL COMPLETE EXAMINATION: RETROPERITONEAL ULTRASOUND OF THE [...] Signed by: Alexander Mcclain DO 09/19/22 Final resultNormalSelect Medical Specialty Hospital - Columbus SouthUnremarkable ultrasound of the kidneys and urinary bladder. [facility] CONSOLIDATEDEXAMINATION: RETROPERITONEAL ULTRASOUND OF THE [...] the bladder. No significant post void residual. [facility] Alexander Amanda DO - 09/19/2022 [...] of the kidneys and urinary bladder. [facility]ENTERUS RENAL COMPLETEOrdered By: Alexander Mcclain on 24-22-5138EKR [facility] Work Phone: Basic Metabolic Profon 39-21-3977Uofhw gap [Moles/Vol] 10 mmol/LNormal9-17[facility] Hospital - [facility] SouthComment on above:Performed By: #### BMP #### [facility] [address] [place] [address] Engagement Specialist: UCHE Ortega/CRE Sgtvw28Nozc6-64EvczgSelect Medical Specialty Hospital - Columbus South Comment on above:Performed By: #### BMP #### [facility] [address] [place], [place] [address] Engagement Specialist: SALLY Ortegaalcium [Mass/Vol]9.3 mg/dLNormal8.6-10.4[facility] Hospital - Columbus SouthComment on above:Performed By: #### BMP #### [address] [place] [id number] Engagement Specialist: SALLY Ortegahloride [Moles/Vol]105 mmol/KAuhlwh61-264UgquuSelect Medical Specialty Hospital - Columbus SouthComment on above:Performed By: #### BMP #### [address] [place] 3945383 Engagement Specialist: Khadar Tang MDCO2 [Moles/Vol]22 mmol/CGzstmw68-08BfxfzSelect Medical Specialty Hospital - Columbus SouthComment on above:Performed By: #### BMP #### [address] [place] 0[address] Engagement Specialist: SALLY Ortegareatinine [Mass/Vol]1.25 mg/dLHigh0.70-1.20[facility] - Columbus SouthComment on above:Performed By: #### BMP #### [address] [place] [address] Engagement Specialist: Khadar Tang MDGFR/1.73 sq M.predicted among non-blacks MDRD (S/P/Bld) [Vol rate/Area]mL/min/{1.73_m2}Normal>60[facility] - Columbus SouthComment on above:Result Comment: These results are not [...] renal tubular secretion.Performed By: #### BMP #### [address] [place] [address] Engagement Specialist: Khadar Tang MDGlucose [Mass/Vol]186 mg/lOBlbx18-89Ohnht Midstate Medical CenterComment on above:Performed By: #### BMP #### [address] [place], [place] 8[address] Engagement Specialist: LAWRENCE Ortegaotassium [Moles/Vol]4.1 mmol/LNormal3.7-5.3MZanesville City Hospital HospitalComment on above:Performed By: #### BMP #### [facility] [address] [place] [id number] Engagement Specialist: SAMMI Ortegaodium [Moles/Vol]137 mmol/MKawmys929-874UprliSelect Medical Specialty Hospital - Columbus SouthComment on above:Performed By: #### BMP #### [address] [place], [place] [address] Engagement Specialist: Khadar Tang MDUrea nitrogen [Mass/Vol]32 mg/dLHigh8-23[facility] Hospital - Columbus SouthComment on above:Performed By: #### BMP #### [address] [place], [place] 7[address]83 Engagement Specialist: ANICETO Ortega RENAL COMPLETEon 99-68-7178Zrucwlhfx Study observation (narrative)RAIN [place] [facility] SPECIAL[facility]OS[facility]ITAL [facility] COLUMBUS SOUTHHemoglobin A1Con 2022 Glucose [Mass/Vol]171 mg/dLNormalSelect Medical Specialty Hospital - Columbus SouthComment on above:Result Comment: The ADA and AACC recommend providing the estimated average glucose result to permit better patient understanding of their HBA1c result.Performed By: #### GLYHGB #### [employer] [address] [place] [address] Engagement Specialist: Jeff Casanova MDHbA1c (Bld) [Mass fraction]7.6 %High4.0-6.0[facility] Hospital - Columbus SouthComment on above:Performed By: #### GLYHGB #### [employer] [address] [place] [address] Engagement Specialist: Jeff Casanova MDOPERATIVE REPORTon 12-87-2742TDILURWXC REPORT [address] [address] OPERATIVE REPORT PATIENT NAME: GANGA STINSON : 1960 MED REC NO: [id number] ROOM: ACCOUNT NO: [id number] ADMIT DATE: 2022 PROVIDER: Angeles Nagy DATE OF PROCEDURE: 2022 SURGEON: Dr. Angeles Nagy. PIVOT END POLISHER: None. PREOPERATIVE DIAGNOSES: 1. Neurogenic bladder. 2. Urethral stricture. POSTOPERATIVE DIAGNOSES: 1. Neurogenic bladder. 2. Urethral stricture. PROCEDURE PERFORMED: Direct visual internal urethrotomy. ANESTHESIA: General. COMPLICATIONS: None. ESTIMATED BLOOD LOSS: Minimal. SPECIMENS: None. PROSTHESIS: An 18-Bulgarian Rowe catheter. DISPOSITION: Stable. FINDINGS: Bulbous urethral stricture. 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 DESCRIPTION OF PROCEDURE: The patient was taken back to the operating room after informed consent including all risks, benefits, and alternatives were obtained. The [facility] operating room table, where he was induced under general anesthesia and given IV Ancef for preoperative antibiotic prophylaxis. To begin the case, he was prepped and draped in the normal sterile fashion and placed in dorsal lithotomy. He had a 21-Bulgarian sheath with a 30-degree lens passed through [...] then removed the scope and inserted an 18-Bulgarian Rowe catheter with ease. He was then awoken from general anesthesia, transferred [facility], and taken to the PACU in satisfactory condition by Nursing and Anesthesia Teams. PLAN: The patient will be discharged home per PACU criterion and follow up with me in one week for Rowe catheter removal. ANGELES NAGY ALEXANDRIA/Jerry_CGGIS_I Doc#: [id number] CC:NormalMercy [facility] Metabolic Panelon 18-88-9741Uhmgq gap [Moles/Vol]10 mmol/L9 - 17 mmol/LBON SECOrdr.in HEALTHCalcium [Mass/Vol]8.8 mg/dL8.6 - 10.4 mg/dLBON SECOrdr.in HEALTHChloride [Moles/Vol]106 mmol/L98 - 107 mmol/LBON SECWatson PharmaceuticalsCO2 [Moles/Vol]24 mmol/L20 - 31 mmol/LBON SECWatson PharmaceuticalsCreatinine [Mass/Vol]1.3 mg/dLHigh0.70 - 1.20 mg/dLBON BurppleGFR/1.73 sq M.predicted MDRD (S/P/Bld) [Vol rate/Area]- [facility] CORN[facility] REGION[facility] HEALTH CENTERWatson PharmaceuticalsComment on above: These results are not intended [...] that affects renal tubular secretion. Glucose [Mass/Vol]250 mg/iBDnax82 - 99 mg/dLBON Burpple Interpretation and review of laboratory resultsAbnormalBON BULL[facility] COMMUNITY HOSPITALWatson Pharmaceuticals Potassium [Moles/Vol]4.0 mmol/L3.7 - 5.3 mmol/LBON SECWatson PharmaceuticalsSodium [Moles/Vol]140 mmol/L135 - 144 mmol/LBON BULLHEAD COMMUNITY HOSPITALWatson PharmaceuticalsUrea nitrogen [Mass/Vol]29 mg/dLHigh8 - 23 mg/dLBON BULLHEAD COMMUNITY HOSPITALWatson PharmaceuticalsUrea nitrogen/Creatinine (Bld) [Mass ratio]90Rynk2 - 20BON LIVERMORE VA HOSPITALSuperMama [facility]ETH[facility] NORTH HOSPITALBON SECOrdr.in [facility] NORTH HOSPITALBasic Metabolic Profon 20-08-6638Kgimb gap [Moles/Vol]10 mmol/LNormal9-17[facility] - [facility] SouthComment on above:Performed By: #### CMPX, CDP #### [facility] [address] [place] [address] [place] [address] Engagement Specialist: Khadar Tang MDBUN/CRE Hqugd99Izwq6-70NlevqSelect Medical Specialty Hospital - [facility] South Comment on above:Performed By: #### CMPX, CDP #### [facility] [address] [place] [address] Dr. [place], [place] 854[address] Engagement Specialist: SALLY Ortegaalcium [Mass/Vol]8.8 mg/dLNormal8.6-10.4[facility] - [facility] SouthComment on above:Performed By: #### CMPX, CDP #### [address] [place] [address] Engagement Specialist: SALLY Ortegahloride [Moles/Vol]106 mmol/EQvphlq59-422RomttSelect Medical Specialty Hospital - Columbus SouthComment on above:Performed By: #### CMPX, CDP #### [address] [place] [address] Engagement Specialist: Khadar Tang MDCO2 [Moles/Vol]24 mmol/EAqvmdh62-91ZftydSelect Medical Specialty Hospital - Columbus SouthComment on above:Performed By: #### CMPX, CDP #### [address] [place] [address] Engagement Specialist: SALLY Ortegareatinine [Mass/Vol]1.30 mg/dLHigh0.70-1.20[facility] - Columbus SouthComment on above:Performed By: #### CMPX, CDP #### [address] [place] [address] Engagement Specialist: Khadar Tang MDGFR/1.73 sq M.predicted among non-blacks MDRD (S/P/Bld) [Vol rate/Area]mL/min/{1.73_m2}Normal>60Mercy Albion HospitalComment on above:Result Comment: These results are [...] tubular secretion.Performed By: #### CMPX, CDP #### [address] [place] [address] Engagement Specialist: Khadar Tang MDGlucose [Mass/Vol]250 mg/tGPrat18-72IkfvjSelect Medical Cleveland Clinic Rehabilitation Hospital, Edwin ShawComment on above:Performed By: #### CMPX, CDP #### [address] [place] [address] Engagement Specialist: LAWRENCE Ortegaotassium [Moles/Vol]4.0 mmol/LNormal3.7-5.3MZanesville City Hospital HospitalComment on above:Performed By: #### CMPX, CDP #### [address] [place] [address] Engagement Specialist: SAMMI Ortegaodium [Moles/Vol]140 mmol/AMfobwg644-764XgpuxSelect Medical Specialty Hospital - Columbus SouthComment on above:Performed By: #### CMPX, CDP #### [address] [place], [facility] Engagement Specialist: Khadar Tang MDUrea nitrogen [Mass/Vol]29 mg/dLHigh8-23[facility] - [facility] SouthComment on above:Performed By: #### CMPX, CDP #### [address] [place], [place] [address]83 Engagement Specialist: Khadar Tang [facility] with Auto Differentialon 39-04-9912Oebibezx Eos #0.80HighBON SECOURS J.W. RUBY MEMORIAL HOSPITALY HEALTHAbsolute Immature Granulocyte0.06B[facility] J.[facility] RU[facility] MEMORIAL HOSPITALY HEALTHAbsolute Lymph #1.38BON SECOURS MER[facility] HEALTHAbsolute Haralson # 0.81[facility] HEALTHBasophils AbsoluteB[facility] HEALTH Basophils/100 WBC (Bld)0 %0 - 2 %[facility] HEALTHEosinophils/100 WBC (Bld)7 %High1 - 4 %BON SECUZMA [facility] SPECIALTY HOSPITAL - COLUMBUS SOUTHHematocrit (Bld) [Volume fraction] 26.8 %Low40.7 - 50.3 %BON [facility] CITY MEDICAL CENTERHemoglobin (Bld) [Mass/Vol]7.9 g/dLLow13.0 - 17.0 g/dLBON SECOURS [facility] SOUTHImmature granulocytes/100 WBC (Bld)1 %Gjju7XJD [facility] HEALTHInterpretation and review of laboratory resultsAbnormalBON SECOURS [facility] COLUM[facility] SOUTHLymphocytes/100 WBC (Bld)13 %Low24 - 43 % RAIN A[facility] MEDICAL CENTERH (RBC) [Entitic mass]23.3 pgLow25.2 - 33.5 pgBON SECACMC HEALTHCARE SYSTEMHC (RBC) [Mass/Vol]29.5 g/dL28.4 - 34.8 g/dLBON SECUZMA J.W. RUBY MEMORIAL HOSPITALLowell [facility]TH HOSPITALMCV (RBC) [Entitic vol]79.1 fLLow82.6 - 102.[address] [facility] HEALTHMonocytes/100 WBC (Bld)8 %3 - 12 %RAIN [facility] MEDICAL CENTERNRBC Automated 0.00.0 per [address] [facility]OSPITAL HEALTHPlatelet distribution width (Bld) [Ratio]16.1 %High11.8 - 14.4 %BON SECACAD[facility]ENTER HEALTHPlatelet mean volume (Bld) [Entitic vol]9.1 fL8.1 - 13.[address] [facility]OSP[facility] HEALTHPlatelets (Bld) [#/Vol] 241 10*3/uLBON SECOU[address] W[facility] [facility]ITAL HEALTHRBC (Bld) [#/Vol]3.39 10*6/uLLow4.21 - 5.77 m/uLBON SECUZMA [facility] SOUTHSegmented neutrophils/100 WBC (Bld)71 %High36 - 65 % BON [facility] HEALTHSegs Absolute7.79B[facility] [facility] HEALTHWBC (Bld) [#/Vol]10.9 10*3/uLBON SECOURS [facility] SOUTHBON [facility] with Diff on 46-87-1245Xcz. Basophil<0.35Kmkpwj4.00-0.20[facility] Preble HospitalComment on above:Performed By: #### CMPX, CDP #### [facility] [address] [place] [address] [place] [place] [address] Engagement Specialist: MDAbs. ShannonImm.Granulocyte0.06 k/uLNormal0.00-0.30[facility] HospitalComment on above:Performed By: #### CMPX, CDP #### [address] [place] [address] Engagement Specialist: Audra Ortega.Neutrophil (Seg)7.79 k/uLNormal1.50-8.10[facility] HospitalComment on above:Performed By: #### CMPX, CDP #### [address] [place], [place] [address] Engagement Specialist: Khadar Tang MDBasophils/100 WBC (Bld)0 %Normal0-2MZanesville City Hospital HospitalComment on above:Performed By: #### CMPX, CDP #### [address] [place] [address] Engagement Specialist: Khadar Tang MDEosinophils (Bld) [#/Vol]0.80 10*3/uLHigh0.00-0.44 [facility] SouthComment on above:Performed By: #### CMPX, CDP #### [address] [place] [address] Engagement Specialist: Khadar Tang MDEosinophils/100 WBC (Bld)7 %High1-4[facility] SouthComment on above:Performed By: #### CMPX, CDP #### [facility] [address] [place] [address] [place] [address] Engagement Specialist: Khadar Tang MDErythrocyte distribution width (RBC) [Ratio]16.1 % High11.8-14.4[facility] HospitalComment on above:Performed By: #### CMPX, CDP #### [address] [place] [address] Engagement Specialist: Khadar Tang MDHematocrit (Bld) [Volume fraction]26.8 %Low 40.7-50.3MZanesville City Hospital HospitalComment on above:Performed By: #### CMPX, CDP #### [address] [place] [address] Engagement Specialist: Khadar Tang MDHemoglobin (Bld) [Mass/Vol]7.9 g/dLLow13.0-17.0 [facility] HospitalComment on above:Performed By: #### CMPX, CDP #### [address] [place], [place] [address] Engagement Specialist: Khadar Tang MDImmature granulocytes/100 WBC (Bld)1 %Ymyc9BmlrrKettering Health Preble HospitalComment on above:Performed By: #### CMPX, CDP #### [address] [place] [address] Engagement Specialist: Khadar Tang MDLymphocytes (Bld) [#/Vol]1.38 10*3/uLNormal 1.10-3.70[facility] HospitalComment on above:Performed By: #### CMPX, CDP #### [address] [place] [address] Engagement Specialist: Khadar Tang MDLymphocytes/100 WBC (Bld)13 %Elr93-11Elaqm Tiffin HospitalComment on above:Performed By: #### CMPX, CDP #### [address] [place], [place] [address]83 Engagement Specialist: MORENO OrtegaCH (RBC) [Entitic mass]23.3 pgLow25.2-33.5[facility] SouthComment on above:Performed By: #### CMPX, CDP #### [address] [place] [address] Engagement Specialist: MORENO OrtegaCHC (RBC) [Mass/Vol]29.5 g/xAKxctbh48.4-34.8[facility] SouthComment on above:Performed By: #### CMPX, CDP #### [address] [place] [address] Engagement Specialist: MORENO OrtegaCV (RBC) [Entitic vol]79.1 fLLow82.6-102.9[facility] SouthComment on above:Performed By: #### CMPX, CDP #### [address] [place] [address] Engagement Specialist: MORENO Ortegaonocytes (Bld) [#/Vol]0.81 10*3/uLNormal0.10-1.20 [facility] SouthComment on above:Performed By: #### CMPX, CDP #### [address] [place] [address] Engagement Specialist: MORENO Ortegaonocytes/100 WBC (Bld)8 %Normal3-12[facility] - [facility] SouthComment on above:Performed By: #### CMPX, CDP #### [address] [place] [address] Engagement Specialist: Khadar Tang MDNeutrophil (Seg)71 %Pqnh51-92DwiiaSelect Medical Specialty Hospital - [place] Comment on above:Performed By: #### CMPX, CDP #### [address] [place], [place] [id number] Engagement Specialist: Khadar Tang MDNRBC Automated0.0 per 100 WBCNormal0.0Mercy Albion HospitalComment on above:Performed By: #### CMPX, CDP #### [address] [place] [address] Engagement Specialist: Thiago Ortega mean volume (Bld) [Entitic vol]9.1 fL Normal8.1-13.5[facility] Preble HospitalComment on above:Performed By: #### CMPX, CDP #### [address] [place] [address] Engagement Specialist: Laila Ortega (Bld) [#/Vol]241 10*3/zBCdtphq524-113 [facility] [place] SouthComment on above:Performed By: #### CMPX, CDP #### [address] [place] [address] Engagement Specialist: CLEOPATRA Ortega (Bld) [#/Vol]3.39 10*6/uLLow4.21-5.77[facility] - [place] SouthComment on above:Performed By: #### CMPX, CDP #### [address] [place] [address] Engagement Specialist: KEO rOtega (Bld) [#/Vol]10.9 10*3/uLNormal3.5-11.3MZanesville City Hospital HospitalComment on above:Performed By: #### CMPX, CDP #### [address] [place] [address] Engagement Specialist: Med Ortega,Woundon [id number],WoundSpecimen Description .WOUND Special Requests LEG Direct Exam NO NEUTROPHILS SEEN NO ORGANISMS SEEN Culture NO GROWTH Report Status FINAL 06/27/2022NormalKettering Health Preble HospitalComment on above: Performed By: #### CMPX, CDP #### [address] [place] [address] Engagement Specialist: Khadar Tang, [facility] auto differentialon [id number] Eos # 0.63HighBON SECOURS J.[facility]OSPITALY HEALTHAbsolute Immature Granulocyte0.05[facility] MERCY HEALTHAbsolute Lymph #1.33[facility] MERCY HEALTHAbsolute Haralson #0.82[facility] HEALTHBasophils AbsoluteBON SECOURS MERCY HEALTHBasophils/100 WBC (Bld)0 %0 - 2 %[facility] HOSPITALY HEALTHEosinophils/100 WBC (Bld)7 %High1 - 4 % [facility] MEMORIAL HOSPITALY [facility] HOSPITALHematocrit (Bld) [Volume fraction]24.4 %Low40.7 - 50.3 % [facility] HOSPITALY [facility] NORTH HOSPITALHemoglobin (Bld) [Mass/Vol]7.6 g/dLLow13.0 - 17.0 g/dL [facility] SOUTHImmature granulocytes/100 WBC (Bld)1 %Weqd6FBF SECOURS J.[facility]IAL HOSPITALY HEALTHInterpretation and review of laboratory resultsAbnormalBON SECOURS [facility] SOUTHLymphocytes/100 WBC (Bld)14 %Low24 - 43 %BON SECACMC HEALTHCARE SYSTEMH (RBC) [Entitic mass]23.8 pgLow25.2 - 33.5 pgBON SECOURS [facility] HOSPITALHC (RBC) [Mass/Vol]31.1 g/dL28.4 - 34.8 g/dLBON SECACMC HEALTHCARE SYSTEMV (RBC) [Entitic vol]76.3 fLLow82.6 - 102.9 fLBON SECOURS J.[facility]. RU[facility] MEM[facility]IAL HOSPITALY HEALTHMonocytes/100 WBC (Bld)9 %3 - 12 %[facility]ITALY HEALTHNRBC Automated0.00.0 per 100 WBCBON SECOURS J.[facility]. [facility]IAL HOSPITALY HEALTHPlatelet distribution width (Bld) [Ratio]16.0 %High11.8 - 14.4 %[facility] MERCY HEALTHPlatelet mean volume (Bld) [Entitic vol]8.8 fL8.1 - 13.5 fL [facility] MERCY HEALTHPlatelets (Bld) [#/Vol]205 10*3/uLBON SECOURS J.[facility]IAL HOSPITALY HEALTHRBC (Bld) [#/Vol]3.20 10*6/uLLow4.21 - 5.77 m/uLBON [facility] Segmented neutrophils/100 WBC (Bld)69 %High36 - 65 %[facility]ON [facility] MEDICAL CENTERSegs Absolute6.49BON [facility] MEDICAL CENTERWBC (Bld) [#/Vol]9.3 10*3/uLBON [facility] MED[facility] CENTERBON [facility] MEDICAL CENTERCBC with Diffon [id number]. Basophil<0.03 Normal0.00-0.20[facility] - [place] SouthComment on above:Performed By: #### CMPX, CDP #### [address] [place] [address] Engagement Specialist: Audra Ortega.Imm.Granulocyte0.05 k/uLNormal0.00-0.30[facility] - [place] SouthComment on above:Performed By: #### CMPX, CDP #### [address] [place], [facility]83 Engagement Specialist: Audra Ortega.Neutrophil (Seg)6.49 k/uLNormal1.50-8.10[facility] - [place] SouthComment on above:Performed By: #### CMPX, CDP #### [address] [place] [address] Engagement Specialist: Khadar Tang MDBasophils/100 WBC (Bld)0 %Normal0-2MZanesville City Hospital HospitalComment on above:Performed By: #### CMPX, CDP #### [address] [place] [address] Engagement Specialist: Khadar Tang MDEosinophils (Bld) [#/Vol]0.63 10*3/uLHigh0.00-0.44 [facility] - [place] SouthComment on above:Performed By: #### CMPX, CDP #### [address] [place], [place] [phone] Engagement Specialist: TOOTIE Ortegaosinophils/100 WBC (Bld)7 %High1-4[facility] Preble HospitalComment on above:Performed By: #### CMPX, CDP #### [address] [place] [place] [address] Engagement Specialist: Khadar Tang MDErythrocyte distribution width (RBC) [Ratio]16.0 % High11.8-14.4[facility] HospitalComment on above:Performed By: #### CMPX, CDP #### [address] [place], [facility]83 Engagement Specialist: Khadar Tang MDHematocrit (Bld) [Volume fraction]24.4 %Low 40.7-50.3Mercy Albion HospitalComment on above:Performed By: #### CMPX, CDP #### [address] [place], [facility]83 Engagement Specialist: Khadar Tang MDHemoglobin (Bld) [Mass/Vol]7.6 g/dLLow13.0-17.0 [facility] HospitalComment on above:Performed By: #### CMPX, CDP #### [address] [place], [place] [address] Engagement Specialist: Khadar Tang MDImmature granulocytes/100 WBC (Bld)1 %Uysr7QwlxyKettering Health Preble HospitalComment on above:Performed By: #### CMPX, CDP #### [address] [place], [facility]83 Engagement Specialist: Khadar Tang MDLymphocytes (Bld) [#/Vol]1.33 10*3/uLNormal 1.10-3.70[facility] - [place] SouthComment on above:Performed By: #### CMPX, CDP #### [address] [place] [phone] Engagement Specialist: Kailyn Ortegamphocytes/100 WBC (Bld)14 %Llk47-50AguobSelect Medical Specialty Hospital - [place] SouthComment on above:Performed By: #### CMPX, CDP #### [address] [place], [place] [phone] Engagement Specialist: MORENO OrtegaCH (RBC) [Entitic mass]23.8 pgLow25.2-33.5[facility] - [place] SouthComment on above:Performed By: #### CMPX, CDP #### [address] [place], [place] 4104183 Engagement Specialist: MORENO OrtegaCHC (RBC) [Mass/Vol]31.1 g/cCLomxnv27.4-34.8[facility] - [place] SouthComment on above:Performed By: #### CMPX, CDP #### [address] [place], [place] [phone] Engagement Specialist: MORENO OrtegaCV (RBC) [Entitic vol]76.3 fLLow82.6-102.9[facility] - [place] SouthComment on above:Performed By: #### CMPX, CDP #### [address] [place], [place] 1548383 Engagement Specialist: MORENO Ortegaonocytes (Bld) [#/Vol]0.82 10*3/uLNormal0.10-1.20 [facility] - [place] SouthComment on above:Performed By: #### CMPX, CDP #### [address] [place], [place] [phone] Engagement Specialist: MORENO Ortegaonocytes/100 WBC (Bld)9 %Normal3-12[facility] - [place] SouthComment on above:Performed By: #### CMPX, CDP #### [address] [place], [place] [phone] Engagement Specialist: Khadar Tang MDNeutrophil (Seg)69 %Ecde17-77AvcgiSelect Medical Specialty Hospital - [place] Comment on above:Performed By: #### CMPX, CDP #### [address] [place] [address] Engagement Specialist: SOLEDAD Ortega Automated0.0 per 100 WBCNormal0.0[facility] - [place] SouthComment on above:Performed By: #### CMPX, CDP #### [facility] [address] [place], [place] [phone] Engagement Specialist: Thiago Ortega mean volume (Bld) [Entitic vol]8.8 fL Normal8.1-13.5[facility] - [place] SouthComment on above:Performed By: #### CMPX, CDP #### [address] [place], [place] 7[address]83 Engagement Specialist: Laila Ortega (Bld) [#/Vol]205 10*3/jYJehaue620-093 [facility] - [place] SouthComment on above:Performed By: #### CMPX, CDP #### [address] [place], [place] 334[address]83 Engagement Specialist: CLEOPATRA Ortega (Bld) [#/Vol]3.20 10*6/uLLow4.21-5.77[facility] [place] SouthComment on above:Performed By: #### CMPX, CDP #### [address] [place], [place] 16[address]83 Engagement Specialist: KEO Ortega (Bld) [#/Vol]9.3 10*3/uLNormal3.5-11.3MSelect Medical Cleveland Clinic Rehabilitation Hospital, Edwin ShawComment on above:Performed By: #### CMPX, CDP #### [address] [place], [place] [phone] Engagement Specialist: MYRON OrtegaG Rhythm Stripon [id number] CLINIC MENTOR HOSPITAL LABBON [facility] SOUTHGlucose, Whole Bloodon [id number] [Mass/Vol]95 mg/dL74 - 100 mg/dLBON [facility] No Panel Informationon [id number] dictationPIONEER COMM[facility]ITY [facility] Cellectis Work Phone: bON [facility] Virtual Command Work Phone: surgical Pathologyon [id number] Pathology (NOTE) -- Diagnosis -- POLYP, TRANSVERSE [...] CONSULTATION Patient Name: GANGA STINSON [facility] Rec: [id number] Path Number: [id number] [facility] Business Lab [facility] ANATOMIC PATHOLOGY [address] [place] [address]. [place], [place] [address] NoAultman Orrville HospitalComment on above:Performed By: #### CMPX, CDP #### [facility] [address] [place] [address] [place] [address] Engagement Specialist: Carlos Ortega occult stool #1on [id number], Stool #13 BON [facility] MEDICAL CENTERComment on above:30 23 Hemoglobin.gastrointestinal spec 1 Ql (Stl)NegativeNEGATIVEBON [facility]1C CompanyTime, Stool #[id number] [facility] DELL[facility] ARE[facility] HEALTH CENTERCBC auto differentialon [id number] Eos #0.63HighBON BULLHEAD COMMUNITY HOSPITALGenscript Technology [facility] CellectisAbsolute Immature Granulocyte0.07BON BULLHEAD COMMUNITY HOSPITALGenscript Technology [facility] CellectisAbsolute Lymph #1.63BON BULLHEAD COMMUNITY HOSPITALGenscript Technology [facility]1C CompanyAbsolute Haralson #0.76BON BULLHEAD COMMUNITY HOSPITALGenscript Technology [facility] HEALTHBasophils AbsoluteBON SECOURS [facility] HEALTHBasophils/100 WBC (Bld)0 %0 - 2 %[facility] HEALTH Eosinophils/100 WBC (Bld)7 %High1 - 4 %BON [facility] HEALTHHematocrit (Bld) [Volume fraction]24.6 %Low40.7 - 50.3 %BON [facility] MEDICAL CENTERHemoglobin (Bld) [Mass/Vol]7.6 g/dLLow13.0 - 17.0 g/dLBON SECST. ELIZABETH HOSPITALImmature granulocytes/100 WBC (Bld)1 %Csde3ROX [facility] HEALTHInterpretation and review of laboratory resultsAbnormalBON SECST. ELIZABETH HOSPITALLymphocytes/100 WBC (Bld)19 %Low24 - 43 %BON [facility] CENTERH (RBC) [Entitic mass]23.7 pgLow 25.2 - 33.5 pgBON SECACMC HEALTHCARE SYSTEMHC (RBC) [Mass/Vol]30.9 g/dL28.4 - 34.8 g/dLBON SECACMC HEALTHCARE SYSTEMV (RBC) [Entitic vol]76.6 fLLow82.6 - 102.9 fLCOBRE VALLEY REGIONAL MEDICAL CENTER SECST. ELIZABETH HOSPITALMonocytes/100 WBC (Bld)9 %3 - 12 %[facility] NRBC Automated0.00.0 per 100 WBCBON SECACADIAN MEDICAL CENTER HEALTHPlatelet distribution width (Bld) [Ratio]15.9 %High11.8 - 14.4 %[facility] HEALTHPlatelet mean volume (Bld) [Entitic vol]8.9 fL8.1 - 13.5 fLBON SECACADIAN MEDICAL CENTER HEALTHPlatelets (Bld) [#/Vol]223 10*3/uLBON SECOURS [facility] HEALTHRBC (Bld) [#/Vol]3.21 10*6/uLLow 4.21 - 5.77 m/uLBON [facility] MEDICAL CENTERSegmented neutrophils/100 WBC (Bld)64 % 36 - 65 %[facility] HEALTHSegs Absolute5.60[facility] SOUTHWBC (Bld) [#/Vol]8.7 10*3/uLBON SECOURS [facility] HEALTHBON SECOURS MERCY HEALTHCBC with Diffon [id number]. Basophil<0.41Gjpkfb3.00-0.20MerSt. John of God Hospital HospitalComment on above:Performed By: #### TROPI #### [address] [place], [place] [address] Engagement Specialist: Audra Ortega.Imm.Granulocyte0.07 k/uLNormal0.00-0.30[facility] HospitalComment on above:Performed By: #### TROPI #### [address] [place], [place] [address] Engagement Specialist: Audra Ortega.Neutrophil (Seg)5.60 k/uLNormal1.50-8.10[facility] HospitalComment on above:Performed By: #### TROPI #### [address] [place], [place] [address] Engagement Specialist: Khadar Tang MDBasophils/100 WBC (Bld)0 %Normal0-2MZanesville City Hospital HospitalComment on above:Performed By: #### TROPI #### [address] [place], [place] [address] Engagement Specialist: Khadar Tang MDEosinophils (Bld) [#/Vol]0.63 10*3/uLHigh0.00-0.44 [facility] [place] SouthComment on above:Performed By: #### TROPI #### [address] [place], [place] [address] Engagement Specialist: Khadar Tang MDEosinophils/100 WBC (Bld)7 %High1-4[facility] - [place] SouthComment on above:Performed By: #### TROPI #### [address] [place], [facility]83 Engagement Specialist: Khadar Tang MDErythrocyte distribution width (RBC) [Ratio]15.9 % High11.8-14.4[facility] Albion HospitalComment on above:Performed By: #### TROPI #### [address] [place], [place] [address] Engagement Specialist: Khadar Tang MDHematocrit (Bld) [Volume fraction]24.6 %Low 40.7-50.3[facility] Albion HospitalComment on above:Performed By: #### TROPI #### [address] [place], [facility]83 Engagement Specialist: Khadar Tang MDHemoglobin (Bld) [Mass/Vol]7.6 g/dLLow13.0-17.0 [facility] [place] SouthComment on above:Performed By: #### TROPI #### [address] [place], [facility]83 Engagement Specialist: Seven Ortegamature granulocytes/100 WBC (Bld)1 %Xtna0BpkkxKettering Health Preble HospitalComment on above:Performed By: #### TROPI #### [address] [place], [facility]83 Engagement Specialist: Kailyn Ortegamphocytes (Bld) [#/Vol]1.63 10*3/uLNormal 1.10-3.70[facility] HospitalComment on above:Performed By: #### TROPI #### [address] [place], [facility]83 Engagement Specialist: Kailyn Ortegamphocytes/100 WBC (Bld)19 %Jjn60-62Hhpoa Tiffin HospitalComment on above:Performed By: #### TROPI #### [address] [place] [address] Engagement Specialist: MORENO OrtegaCH (RBC) [Entitic mass]23.7 pgLow25.2-33.5[facility] HospitalComment on above:Performed By: #### TROPI #### [address] [place] [address] Engagement Specialist: MORENO OrtegaCHC (RBC) [Mass/Vol]30.9 g/xPUdvnbb96.4-34.8[facility] HospitalComment on above:Performed By: #### TROPI #### [address] [place], [place] 3072883 Engagement Specialist: MORENO OrtegaCV (RBC) [Entitic vol]76.6 fLLow82.6-102.9[facility] - [place] SouthComment on above:Performed By: #### TROPI #### [address] [place], [place] 4709783 Engagement Specialist: MORENO Ortegaonocytes (Bld) [#/Vol]0.76 10*3/uLNormal0.10-1.20 [facility] HospitalComment on above:Performed By: #### TROPI #### [address] [place], [place] 6126683 Engagement Specialist: MORENO Ortegaonocytes/100 WBC (Bld)9 %Normal3-12[facility] HospitalComment on above:Performed By: #### TROPI #### [address] [place] [address] Engagement Specialist: Khadar Tang MDNeutrophil (Seg)64 %Hnhjvo33-84Shqhz Tiffin HospitalComment on above:Performed By: #### TROPI #### [address] [place], [place] 2635183 Engagement Specialist: Khadar Tang MDNRBC Automated0.0 per 100 WBCNormal0.0[facility] HospitalComment on above:Performed By: #### TROPI #### [address] [place], [place] 720[address]83 Engagement Specialist: Thiago Ortega mean volume (Bld) [Entitic vol]8.9 fL Normal8.1-13.5MerSt. John of God Hospital HospitalComment on above:Performed By: #### TROPI #### [address] [place], [place] 7345383 Engagement Specialist: Dewayne Ortegatesusan (Bld) [#/Vol]223 10*3/eUZorjiz622-080 [facility] HospitalComment on above:Performed By: #### TROPI #### [address] [place] [address] Engagement Specialist: Khadar Tang MDRBC (Bld) [#/Vol]3.21 10*6/uLLow4.21-5.77[facility] HospitalComment on above:Performed By: #### TROPI #### [address] [place], [facility]83 Engagement Specialist: BERT OrtegaBC (Bld) [#/Vol]8.7 10*3/uLNormal3.5-11.3[facility] HospitalComment on above:Performed By: #### TROPI #### [address] [place] [address] Engagement Specialist: SALLY Ortegaomp Metabolic Pr/rfx MGon [id number] [Mass/Vol]2.8 g/dLLow3.5-5.2[facility] HospitalComment on above:Performed By: #### TROPI #### [address] [place] [address] Engagement Specialist: Khadar Tang MDAlbumin/Glob Ratio0.7Low1.0-2.5MerSt. John of God Hospital HospitalComment on above:Performed By: #### TROPI #### [address] [place] [address] Engagement Specialist: Lisa Ortega Phos75 U/THiktgq31-616Nttcy Tiffin HospitalComment on above:Performed By: #### TROPI #### [address] [place], [place] 4892183 Engagement Specialist: Khadar Tang MDALT [Catalytic activity/Vol]9 U/LNormal5-41MerThe Hospital of Central ConnecticutComment on above:Performed By: #### TROPI #### [address] [place], [place] 5756983 Engagement Specialist: Osvaldo Ortega gap [Moles/Vol]6 mmol/LLow9-17[facility] HospitalComment on above:Performed By: #### TROPI #### [address] [place], [facility]83 Engagement Specialist: Khadar Tang MDAST [Catalytic activity/Vol]10 U/LNormal<40MerSt. John of God Hospital HospitalComment on above:Performed By: #### TROPI #### [address] [place], [facility]83 Engagement Specialist: Khadar Tang MDBilirubin [Mass/Vol]0.3 mg/dLNormal0.3-1.2[facility] HospitalComment on above:Performed By: #### TROPI #### [address] [place], [place] 1601283 Engagement Specialist: Khadar Tang MDBUN/CRE Vliel88Lqebiz2-20Xayrp [facility] Comment on above:Performed By: #### TROPI #### [address] [place], [place] 2604383 Engagement Specialist: SALLY Ortegaalcium [Mass/Vol]8.7 mg/dLNormal8.6-10.4MerSt. John of God Hospital HospitalComment on above:Performed By: #### TROPI #### [address] [place] [address] Engagement Specialist: SALLY Ortegahloride [Moles/Vol]113 mmol/KRkdj47-122YlggoSelect Medical Specialty Hospital - [place] SouthComment on above:Performed By: #### TROPI #### [address] [place], [place] 8936483 Engagement Specialist: Khadar Tang MDCO2 [Moles/Vol]20 mmol/ZKzxggd70-13MbtxcSelect Medical Specialty Hospital - [place] SouthComment on above:Performed By: #### TROPI #### [address] [place], [place] 4622583 Engagement Specialist: SALLY Ortegareatinine [Mass/Vol]0.97 mg/dLNormal0.70-1.20 [facility] [place] SouthComment on above:Performed By: #### TROPI #### [address] [place], [facility]83 Engagement Specialist: Khadar Tang MDGFR/1.73 sq M.predicted among non-blacks MDRD (S/P/Bld) [Vol rate/Area]mL/min/{1.73_m2}Normal>60[facility] - [place] SouthComment on above:Result Comment: These results are not [...] renal tubular secretion.Performed By: #### TROPI #### [address] [place] [address] Engagement Specialist: Khadar Tang MDGlucose [Mass/Vol]144 mg/pXUlza46-68XkcxaSelect Medical Cleveland Clinic Rehabilitation Hospital, Edwin ShawComment on above:Performed By: #### TROPI #### [address] [place] [address] Engagement Specialist: LAWRENCE Ortegaotassium [Moles/Vol]4.5 mmol/LNormal3.7-5.3[facility] HospitalComment on above:Performed By: #### TROPI #### [address] [place], [place] [phone] Engagement Specialist: Khadar Tang MDProtein [Mass/Vol]6.7 g/dLNormal6.4-8.3[facility] HospitalComment on above:Performed By: #### TROPI #### [address] [place], [place] 4970783 Engagement Specialist: Khadar Tang MDSodium [Moles/Vol]139 mmol/RYhiutu129-814Jagpx Tiffin HospitalComment on above:Performed By: #### TROPI #### [address] [place], [place] [phone] Engagement Specialist: Khadar Tang MDUrea nitrogen [Mass/Vol]19 mg/dLNormal8-23[facility] HospitalComment on above:Performed By: #### TROPI #### [address] [place] [address] Engagement Specialist: SALLY Ortegaomprehensive Metabolic Panel w/ Reflex to MGon 64-66-3535Dxrilbs [Mass/Vol]2.8 g/dLLow3.5 - 5.2 g/dLBON [facility] Albumin/Globulin [Mass ratio]0.7 {ratio}Low1.0 - 2.5BON [facility] MEDICAL CENTERALP [Catalytic activity/Vol]75 U/L40 - 129 U/LBON [facility] MEDICAL CENTERALT [Catalytic activity/Vol]9 U/L5 - 41 U/LBON [facility] CENTERAnion gap [Moles/Vol]6 mmol/LLow9 - 17 mmol/LBON [facility] MEDICAL CENTERAST [Catalytic activity/Vol]10 U/L NINF - 40 U/LBON [facility] MED[facility] CENTERBilirubin [Mass/Vol]0.3 mg/dL0.3 - 1.2 mg/dLBON [facility] MED[facility] CENTERCalcium [Mass/Vol]8.7 mg/dL8.6 - 10.4 mg/dLBON [facility] MED[facility] CENTERChloride [Moles/Vol]113 mmol/LHigh98 - 107 mmol/LBON [facility] MEDICAL CENTERCO2 [Moles/Vol]20 mmol/L20 - 31 mmol/LBON [facility] Creatinine [Mass/Vol]0.97 mg/dL0.70 - 1.20 mg/dLBON [facility] MED[facility] CENTERGFR/1.73 sq M.predicted MDRD (S/P/Bld) [Vol rate/Area]- [facility]FBSOVA[facility] Comment on above: These results are not [...] that affects renal tubular secretion. Glucose [Mass/Vol]144 mg/rLYgix21 - 99 mg/dLBON [facility] Interpretation and review of laboratory resultsAbnormalSENTARA WILLIAMSBUR[facility] Potassium [Moles/Vol]4.5 mmol/L3.7 - 5.3 mmol/LBON [facility] MEDICAL CENTERProtein [Mass/Vol]6.7 g/dL6.4 - 8.3 g/dLBON [facility] MED[facility] CENTERSodium [Moles/Vol]139 mmol/L135 - 144 mmol/LBON [facility] CITY MEDICAL CENTERUrea nitrogen [Mass/Vol]19 mg/dL8 - 23 mg/dLBON [facility] CITY MEDICAL CENTERUrea nitrogen/Creatinine (Bld) [Mass ratio]209 - 20BON [facility] CENTERBON [facility] MEDICAL CENTERCult,Woundon 06-25-2022 Cult,WoundSpecimen Description .BUTTOCK Direct Exam FEW NEUTROPHILS MODERATE GRAM POSITIVE COCCI IN PAIRS MODERATE GRAM POSITIVE RODS Culture NORMAL SKIN ROBBIE Report Status FINAL 06/25/2022NoAultman Orrville HospitalComment on above: Performed By: #### TROPI #### [facility] [address] [place], [place] [address] Engagement Specialist: FELIPE Ortega Rhythm Stripon [id number] CLINIC MENTOR [facility]OSPITAL LABHIGHLAND DISTRICT [facility] LABWilson Health LABSENTARA WILLIAMSBURG REGIONAL MEDICAL CENTEROccult Blood, Fecalon [phone] Blood 1NThe [facility] Comment on above:Performed By: #### CMPX, CDP #### [facility] [address] [place] [address] Engagement Specialist: Vance Ortegaatrium health mercygriselda [address] Comment on above:Result Comment: Performed By: #### CMPX, CDP #### [facility] [address] [place] [address] Engagement Specialist: Kenny Ortega [id number] [place] [address] Comment on above:Performed By: #### CMPX, CDP #### [address] [place] [address] Engagement Specialist: SAMMI Ortegaurgical Pathologyon [id number] Pathology (NOTE) -- Diagnosis -- RIGHT ANKLE, [...] CONSULTATION Patient Name: GANGA STINSON Med Rec: [id number] Path Number: [id number] [facility] PATHOLOGISTS [facility] ANATOMIC PATHOLOGY [address] [place] [address]. [place], [place] [address] NormalSelect Medical Specialty Hospital - Columbus SouthComment on above:Performed By: #### LEIGHA, CDP #### [facility] [address] [place], [place] [address] Engagement Specialist: Khadar Tang MDTYPE AND SCREENon 73-96-9008BJQ/RhNegativeBON [facility] CellectisArm Band [id number] [facility] Blood Product Expiration [id number] [facility] ISBT Product Blood [id number] [facility] - YoungstownInfoteria Corporation Bank Unit Type and Rh NegativeBON [facility] MED[facility] CENTERAislelabsood product type Nom (BPU)Leukocyte Reduced Red CellBON [facility] - YoungstownInfoteria Corporation product unit ID (Dose) [#][id number] [facility] CENTERCrossmatch ResultCOMPATIBLEPIONEER [facility] CellectisDispense StatusTRANSFUSEDBON [facility] CENTERExpiration Date06/27/2022,2359BON [facility] CENTERProduct Code Blood [id number] [facility] Cellectis Transfusion StatusOK TO TRANSFUSESENTARA WILLIAMSBURG REGIONAL MEDICAL CENTERUnit Lucgqcz7HTD [facility] MED[facility] CENTERUnit Issue Date/[id number] [facility] HEALTH CENTERAPTTon 08-65-3113yBVY Coag (Bld) [Time]35.6 sHigh26.8-34.8 [facility] - [facility] SouthComment on above:Result Comment: IV Heparin Therapy Range: 62.0-94.0Performed By: #### LEIGHA, CDP #### [address] [place] [address] Engagement Specialist: Khadar Tang MDB12/Folate Panelon 03-43-5600Dlydejhxl (Vitamin B12) [Mass/Vol]446 pg/eMQfnpqm007-0304Idjer Tiffin HospitalComment on above: Performed By: #### CMPX, CDP #### [facility] [address] [place] [address] Engagement Specialist: Apple Ortega Acid8.2 ng/mLNormal>4.8[facility] Comment on above:Performed By: #### CMPX, CDP #### [facility] [address] [place] [address] Engagement Specialist: Khadar Tang [facility] auto differentialon 37-82-7673Ldxfpugz Eos # 0.46HighSENTARA WILLIAMSBURG REGIONAL MEDICAL CENTERAbsolute Immature Granulocyte0.07S[facility] MEDICAL CENTERAbsolute Lymph #1.52[facility] MEDICAL CENTERAbsolute Haralson #0.53BON [facility] MEDICAL CENTERBasophils (Bld) [#/Vol]0.00 10*3/uLBON [facility] Hematocrit (Bld) [Volume fraction]21.7 %Low40.7 - 50.3 %[facility] Hemoglobin (Bld) [Mass/Vol]6.6 g/dLCritically low13.0 - 17.0 g/dLBON [facility] MED[facility] CENTERInterpretation and review of laboratory resultsAbnormalBON [facility]DE[facility] MEDICAL CENTERH (RBC) [Entitic mass]23.4 pgLow25.2 - 33.5 pgRETREAT DOCTORS' HOSPITALHC (RBC) [Mass/Vol]30.4 g/dL28.4 - 34.8 g/dLBON ADE[facility] PIKE MEDICAL CENTERV (RBC) [Entitic vol]77.0 fLLow82.6 - 102.9 fLSENTARA WILLIAMSBURG REGIONAL MEDICAL CENTERMorphology Álvaro (Bld) [Interp]HYPOCHROMIA PRESENTSENTARA WILLIAMSBURG REGIONAL MEDICAL CENTERNRBC Automated0.0 0.0 per 100 WBCSENTARA WILLIAMSBURG REGIONAL MEDICAL CENTERPlatelet distribution width (Bld) [Ratio] 16.2 %High11.8 - 14.4 %BON [facility] MEDICAL CENTERPlatelet mean volume (Bld) [Entitic vol]8.9 fL8.1 - 13.5 fLSENTARA WILLIAMSBURG REGIONAL MEDICAL CENTERPlatelets (Bld) [#/Vol] 208 10*3/uLBON [facility] MEDICAL CENTERRBC (Bld) [#/Vol]2.82 10*6/uLLow4.21 - 5.77 m/Buchanan General HospitalSegmented neutrophils/100 WBC (Bld)61 %36 - 65 %SENT[facility]IAM[facility] MEDICAL CENTERSegs Absolute4.02BON [facility] MEDICAL CENTERWBC (Bld) [#/Vol] 6.6 10*3/uLBON [facility]LL[facility] AREA HEALTH CENTERCBC with Diffon 82-54-2621Xro. Basophil0.00 k/uLNormal0.0-0.2Mercy Albion HospitalComment on above:Performed By: #### CMPX, CDP #### [address] [place] [id number] Engagement Specialist: Audra Ortega.Imm.Granulocyte0.07 k/uLNormal0.00-0.30[facility] - [facility] SouthComment on above:Performed By: #### CMPX, CDP #### [address] [place], [place] [address] Engagement Specialist: Audra Ortega.Neutrophil (Seg)4.02 k/uLNormal1.50-8.10[facility] - [facility] SouthComment on above:Performed By: #### CMPX, CDP #### [address] [place], [place] [address] Engagement Specialist: Khadar Tang MDEosinophils (Bld) [#/Vol]0.46 10*3/uLHigh0.00-0.44 [facility] - [facility] SouthComment on above:Performed By: #### CMPX, CDP #### [address] [place] [address] Engagement Specialist: Khadar Tang MDLymphocytes (Bld) [#/Vol]1.52 10*3/uLNormal 1.10-3.70[facility] Preble HospitalComment on above:Performed By: #### CMPX, CDP #### [address] [place] [address] Engagement Specialist: MORENO Ortegaonocytes (Bld) [#/Vol]0.53 10*3/uLNormal0.10-1.20 [facility] Preble HospitalComment on above:Performed By: #### CMPX, CDP #### [address] [place], [place] 2245[address] Engagement Specialist: MORENO Ortegaorphology Álvaro (Bld) [Interp]HYPOCHROMIANormal [facility] - [facility] SouthComment on above:Result Comment: PRESENTPerformed By: #### CMPX, CDP #### [address] [place] [address] Engagement Specialist: Khadar Tang MDNeutrophil (Seg)61 %Mciobp06-44Yhvws Albion HospitalComment on above:Performed By: #### CMPX, CDP #### [address] [place], [place] 0822983 Engagement Specialist: Khadar Tang MDErythrocyte distribution width (RBC) [Ratio]16.2 % High11.8-14.4Mercy Albion HospitalComment on above:Performed By: #### CMPX, CDP #### [address] [place], [place] 7[address]83 Engagement Specialist: Khadar Tang MDHematocrit (Bld) [Volume fraction]21.7 %Low 40.7-50.3Mercy Albion HospitalComment on above:Performed By: #### CMPX, CDP #### [address] [place], [place] 1749683 Engagement Specialist: Khadar Tang MDHemoglobin (Bld) [Mass/Vol]6.6 g/dLCritically low 13.0-17.0MerSt. John of God Hospital HospitalComment on above:Performed By: #### CMPX, CDP #### [address] [place], [place] 1808783 Engagement Specialist: PEEWEE Ortega (RBC) [Entitic mass]23.4 pgLow25.2-33.5[facility] - [facility] SouthComment on above:Performed By: #### CMPX, CDP #### [address] [place], [place] 1376483 Engagement Specialist: PEEWEE OrtegaC (RBC) [Mass/Vol]30.4 g/vTOqagpk31.4-34.8[facility] - [facility] SouthComment on above:Performed By: #### CMPX, CDP #### [address] [place] [address] Engagement Specialist: MANOHAR Ortega (RBC) [Entitic vol]77.0 fLLow82.6-102.9[facility] - [facility] SouthComment on above:Performed By: #### CMPX, CDP #### [address] [place], [place] [phone] Engagement Specialist: SOLEDAD Ortega Automated0.0 per 100 WBCNormal0.0[facility] - [facility] SouthComment on above:Performed By: #### CMPX, CDP #### [address] [place], [place] 2781483 Engagement Specialist: Thiago Ortega mean volume (Bld) [Entitic vol]8.9 fL Normal8.1-13.5[facility] - [facility] SouthComment on above:Performed By: #### CMPX, CDP #### [address] [place] [address] Engagement Specialist: Dewayne Ortegatesusan (Bld) [#/Vol]208 10*3/rUKyyrti489-191 [facility] SouthComment on above:Performed By: #### CMPX, CDP #### [facility] [address] [place] [address] Engagement Specialist: VIKY OrtegaBC (Bld) [#/Vol]2.82 10*6/uLLow4.21-5.77Mer[facility] Midstate Medical CenterComment on above:Performed By: #### CMPX, CDP #### [address] [place] [address] Engagement Specialist: BERT OrtegaBC (Bld) [#/Vol]6.6 10*3/uLNormal3.5-11.3Mer[facility] Midstate Medical CenterComment on above:Performed By: #### CMPX, CDP #### [address] [place], [place] 3841483 Engagement Specialist: Khadar Tang MDBasophils/100 WBC (Bld)0 %Normal0-2BON [facility] on above:Performed By: #### CMPX, CDP #### [address] [place], [place] 1617783 Engagement Specialist: Khadar Tang MDEosinophils/100 WBC (Bld)7 %High1-4BON [facility] on above:Performed By: #### CMPX, CDP #### [address] [place] [address] Engagement Specialist: Seven Ortegamature granulocytes/100 WBC (Bld)1 %Rzfl6DDU [facility] on above:Performed By: #### CMPX, CDP #### [address] [place], [place] 6[address]83 Engagement Specialist: Khadar Tang MDLymphocytes/100 WBC (Bld)23 %Bcf59-17MEX [facility]ENTERComformerly [facility] on above:Performed By: #### CMPX, CDP #### [address] [place], [place] 2650383 Engagement Specialist: Khadar Tang, MDMonocytes/100 WBC (Bld)8 %Normal3-12BON SECST. ELIZABETH HOSPITALComment on above:Performed By: #### CMPX, CDP #### [address] [place], [place] 0482783 Engagement Specialist: SALLY Ortegaomp Metabolic Pr/rfx MGon 57-65-6019Drkmimw [Mass/Vol]2.4 g/dLLow3.5-5.2MercSharon HospitalComment on above:Performed By: #### CMPX, CDP #### [address] [place], [place] 8233583 Engagement Specialist: Khadar Tang MDAlbumin/Glob Ratio0.6Low1.0-2.5[facility] SouthComment on above:Performed By: #### CMPX, CDP #### [address] [place], [place] 1458183 Engagement Specialist: Juan Ortegakaline Phos75 U/ZFijcjm85-896YtiadSelect Medical Specialty Hospital - [facility] SouthComformerly [facility] on above:Performed By: #### CMPX, CDP #### [address] [place] [address] Engagement Specialist: Khadar Tang MDALT [Catalytic activity/Vol]9 U/LNormal5-41[facility] SouthComformerly [facility] on above:Performed By: #### CMPX, CDP #### [address] [place] [address] Engagement Specialist: Khadar Tang MDAnion gap [Moles/Vol]7 mmol/LLow9-17[facility] SouthComformerly [facility] on above:Performed By: #### CMPX, CDP #### [address] [place], [place] 1479483 Engagement Specialist: Khadar Sturtz, MDAST [Catalytic activity/Vol]11 U/LNormal<40[facility] HospitalComment on above:Performed By: #### CMPX, CDP #### [facility] [address] [place] [address] Dr. [place], [place] [phone] Engagement Specialist: Khadar Tang MDBilirubin [Mass/Vol]mg/dLLow0.3-1.2MZanesville City Hospital HospitalComment on above:Performed By: #### CMPX, CDP #### [facility] [address] [place] [address] [place] [address] Engagement Specialist: Khadar Tang MDBUN/CRE Rabgi36Avbb7-43ZxoypSelect Medical Specialty Hospital - [facility] Comment on above:Performed By: #### CMPX, CDP #### [address] [place], [place] 5958483 Engagement Specialist: SALLY Ortegaalcium [Mass/Vol]8.5 mg/dLLow8.6-10.4[facility] - [facility] SouthComment on above:Performed By: #### CMPX, CDP #### [address] [place] [address] Engagement Specialist: SALLY Ortegahloride [Moles/Vol]115 mmol/NCyex48-300OpopqSelect Medical Specialty Hospital - Columbus SouthComment on above:Performed By: #### CMPX, CDP #### [address] [place] [address] Engagement Specialist: Khadar Tang MDCO2 [Moles/Vol]18 mmol/YLgw98-09Ydzaf Tiffin HospitalComment on above:Performed By: #### CMPX, CDP #### [address] [place] [address] Engagement Specialist: SALLY Ortegareatinine [Mass/Vol]1.11 mg/dLNormal0.70-1.20 [facility] HospitalComment on above:Performed By: #### CMPX, CDP #### [address] [place] [address] Engagement Specialist: Khadar Tang MDGFR/1.73 sq M.predicted among non-blacks MDRD (S/P/Bld) [Vol rate/Area]mL/min/{1.73_m2}Normal>60Mercy Albion HospitalComment on above:Result Comment: These results are [...] tubular secretion.Performed By: #### CMPX, CDP #### [address] [place] [address] Engagement Specialist: Khadar Tang MDGlucose [Mass/Vol]137 mg/yRWfyp78-55Ununr Albion HospitalComment on above:Performed By: #### CMPX, CDP #### [address] [place] [address] Engagement Specialist: LAWRENCE Ortegaotassium [Moles/Vol]4.9 mmol/LNormal3.7-5.3Mercy Albion HospitalComment on above:Performed By: #### CMPX, CDP #### [address] [place] [address] Engagement Specialist: Khadar Tang MDProtein [Mass/Vol]6.3 g/dLLow6.4-8.3Mercy Albion HospitalComment on above:Performed By: #### CMPX, CDP #### [address] [place] [address] Engagement Specialist: Khadar Tang MDSodium [Moles/Vol]140 mmol/DCfepda299-005Pvcdf Albion HospitalComment on above:Performed By: #### CMPX, CDP #### [facility] [address] [place] [address] Engagement Specialist: Khadar Tang MDUrea nitrogen [Mass/Vol]26 mg/dLHigh8-23[facility] SouthComment on above:Performed By: #### LEIGHA CDP #### [facility] [address] [place] [address] Engagement Specialist: SALLY Ortegaomprehensive Metabolic Panel w/ Reflex to MGon 32-17-5606Krkwaje [Mass/Vol]2.4 g/dLLow3.5 - 5.2 g/dLBON [facility] Albumin/Globulin [Mass ratio]0.6 {ratio}Low1.0 - 2.5BON [facility] MEDICAL CENTERALP [Catalytic activity/Vol]75 U/L40 - 129 U/LBON [facility] CENTERALT [Catalytic activity/Vol]9 U/L5 - 41 U/LBON [facility] MED[facility] CENTERAnion gap [Moles/Vol]7 mmol/LLow9 - 17 mmol/LBON [facility] MED[facility] CENTERAST [Catalytic activity/Vol]11 U/L NINF - 40 U/LBON [facility] CENTERBilirubin [Mass/Vol]mg/dLLow0.3 - 1.2 mg/dL BON [facility] MED[facility] CENTERCalcium [Mass/Vol]8.5 mg/dLLow8.6 - 10.4 mg/dLBON [facility] MED[facility] CENTERChloride [Moles/Vol]115 mmol/LHigh98 - 107 mmol/LBON [facility] MED[facility] CENTERCO2 [Moles/Vol]18 mmol/LLow20 - 31 mmol/LBON [facility] Creatinine [Mass/Vol]1.11 mg/dL0.70 - 1.20 mg/dLBON [facility] CENTERGFR/1.73 sq M.predicted MDRD (S/P/Bld) [Vol rate/Area]- PINFBON [facility] Comment on above: These results [...] that affects renal tubular secretion. Glucose [Mass/Vol]137 mg/aMFmmr99 - 99 mg/dLBON [facility] COMMUNITY HOSPITALGenscript Technology [facility]1C Company Interpretation and review of laboratory resultsAbnormalSTILLMAN INFIRMARYGenscript Technology [facility] Cellectis Potassium [Moles/Vol]4.9 mmol/L3.7 - 5.3 mmol/LBON [facility] HEALTHProtein [Mass/Vol]6.3 g/dLLow6.4 - 8.3 g/dLBON [facility] CENTERSodium [Moles/Vol]140 mmol/L135 - 144 mmol/LBON [facility] CellectisUrea nitrogen [Mass/Vol]26 mg/dL High8 - 23 mg/dLBON [facility] CellectisUrea nitrogen/Creatinine (Bld) [Mass ratio]93Ocan6 - 20BON [facility] HEALTH CENTERCulture, Wound Aerobic Onlyon 24-74-0233Ekzamymsfqcqnk and review of laboratory resultsAbnormal BON [facility] CENTERMicroorganism identified Cx Nom (Unsp spec)NORMAL SKIN FLORABON [facility] CellectisMicroorganism or agent identified Nom (Unsp spec) FEW NEUTROPHILSAbnormalSTILLMAN INFIRMARYGenscript Technology [facility] SOUTHSpecimen Description.BUTTOCKBON WARREN MEMORIAL HOSPITALWatson PharmaceuticalsEKG 12 Leadon 96-17-9603Cvkrde Rate 64BPMBON BULLHEAD COMMUNITY HOSPITALGenscript Technology [facility]1C Company Work Phone: p [id number] SECGenscript Technology [facility]1C Company Work Phone: p-R [id number] [facility] HospitalWatson Pharmaceuticals Work Phone: Q-T [id number] [facility] HospitalWatson Pharmaceuticals Work Phone: QRS [id number] [facility] HospitalWatson Pharmaceuticals Work Phone: QTc Calculation [phone] [facility] HospitalWatson Pharmaceuticals Work Phone: r [id number] SECGenscript Technology [facility]1C Company Work Phone: T [id number] SECOURS MERCBemDireto Phone: Ventricular [id number] [facility] [employer] Phone: Normal sinus rhythm Inferior infarct , age undetermined Abnormal ECG When compared with ECG of 22-JUN-2022 17:28, Minimal criteria for Inferior infarct is now Present Confirmed by Michelle Noe MD ([id number]) on 06/24/2022 10:31:37 [facility]MEAST[facility] Michelle Noe MD - 06/24/2022 Normal sinus rhythm Inferior infarct , age undetermined Abnormal ECG When compared with ECG of 22-JUN-2022 17:28, Minimal criteria for Inferior infarct is now Present Confirmed by Michelle Noe MD ([id number]) on 06/24/2022 10:31:37 PM [facility] [employer] Phone: bON [facility] [employer] Phone: eKG Rhythm Stripon 01-82-0804DGOLSMELISSA MEMORIAL HOSPITAL Echocardiogram complete 2D with doppler with coloron 29-09-2712Xyax ventricular Ejection [id number] [place] [address] [employer] Phone: lVEF MODALITYECHMARTINSVILLE MEMORIAL HOSPITAL [employer] Phone: [facility] Transthoracic Echocardiography Report (TTE) Patient Name ALLOWAY Date of Study 06/24/2022 GANGA Cristina Date of 1960 Gender Male Age 61 year(s) Race Room Number 0334 Height: 71 inch, 180.34 cm Corporate ID [id number] Weight: 252 pounds, 114.3 kg # Patient Acct [id number] BSA: 2.33 m^2 BMI: 35.15 kg/m^2 # MR # [id number] Relay Engineer TriciaJeanette sullivan Interpreting Physician Michelle Noe Fellow Referring Nurse Shelly Mondragon, Practitioner BACK LINE COOK Interpreting Referring Physician Fellow Type of Study [...] MD / Result, Unknown Provider - 06/24/2022 [facility] Transthoracic Echocardiography Report (TTE) Patient Name ALLOWAY Date of Study 06/24/2022 GANGA Evans Date of 1960 Gender Male Age 61 year(s) Race Room Number 0334 Height: 71 inch, 180.34 cm Corporate ID [id number] Weight: 252 pounds, 114.3 kg # Patient Acct [id number] BSA: 2.33 m^2 BMI: 35.15 kg/m^2 # MR # [id number] Relay Engineer Jeanette Clarke Interpreting Physician Michelle Noe Fellow [...] Wall E' velocity:0.13 m/s Lateral Wall E/E':9.8 [facility] Work Phone: bON [facility] Work Phone: Glucose, Whole Bloodon 06-81-5005Jaxgcos [Mass/Vol]114 mg/sELgsr33 - 100 mg/dLBON [facility] MEDICAL CENTERInterpretation and review of laboratory resultsAbRoyal C. Johnson Veterans Memorial Hospital Hemoglobin and Hematocriton 00-41-6725Yarivqehyz (Bld) [Volume fraction]25.1 % Low40.7 - 50.3 %[facility] MEDICAL CENTERHemoglobin (Bld) [Mass/Vol]7.8 g/dLLow 13.0 - 17.0 g/dLBON [facility] CENTERInterpretation and review of laboratory resultsAbRoyal C. Johnson Veterans Memorial HospitalHgb/Hcton 58-43-1296Mdpmdmpdco (Bld) [Volume fraction]25.1 %Low40.7-50.3[facility]state Medical CenterComment on above:Performed By: #### LEIGHA, CDP #### [facility] [address] [place] [address] [address] [place] [address] Engagement Specialist: Khadar Tang MDHemoglobin (Bld) [Mass/Vol]7.8 g/dLLow13.0-17.0 [facility] SouthComment on above:Performed By: #### LEIGHA, CDP #### [facility] [address] [place] [address] Dr. [place], [place] [id number] Engagement Specialist: Alex Ortega Binding Cap.on 06-24-2022% Fe Lxtnhdczaw69 % Emd24-82GuxtoSelect Medical Specialty Hospital - Columbus SouthComment on above:Performed By: #### CMPX, CDP #### [address] [place], [place] 1320683 Engagement Specialist: Alex Ortega [Mass/Vol]33 ug/iSRko93-318LqaatSelect Medical Specialty Hospital - Columbus SouthComment on above:Performed By: #### CMPX, CDP #### [address] [place], [place] 4959783 Engagement Specialist: Rebekah Ortegatal Fe Binding Qva670 ug/vUKvo038-956KjldrSelect Medical Specialty Hospital - Columbus SouthComment on above:Performed By: #### CMPX, CDP #### [address] [place], [place] 2634683 Engagement Specialist: Khadar Tang MDUnbound Fe Bind Lbo313 ug/gUZiuwly122-472KhdurSelect Medical Specialty Hospital - Columbus SouthComment on above:Performed By: #### CMPX, CDP #### [address] [place], [place] [address]37983 Engagement Specialist: Alex Ortega and Kimberley 00-50-8244Vuiudygbkyfsrf and review of laboratory resultsAbnormalBON [facility] Hospitaln [Mass/Vol]33 ug/dLLow59 - 158 ug/dLBON [facility] Hospitaln binding capacity [Mass/Vol] 175 ug/gYWsd374 - 450 ug/dLBON [facility] Hospitaln Hhylohfvrj00 %Low20 - 55 %BON [facility] CENTERUIBC142 ug/dL112 - 347 ug/dLBON [facility] BON [facility] CENTERLaboratory - Microbiology and Antimicrobial susceptibilityon 16-22-9295Inyissjodtwuy or agent identified Nom (Unsp spec) PositiveAbnormalSENTARA WILLIAMSBURG REGIONAL MEDICAL CENTERLipid Panelon 98-46-2100Otoswqpydhs [Mass/Vol]147 mg/dLNINF - 200 mg/dLBON [facility] CENTERComment on above: Cholesterol Guidelines: <200 Desirable 200-240 Borderline >240 Undesirable Cholesterol in HDL [Mass/Vol]28 mg/dLLow40 - PINF mg/dLBSOVAH HEALTH - [place]AN[facility]IL[facility] Comment on above: HDL Guidelines: <40 Undesirable 40-59 Borderline >59 Desirable Cholesterol in LDL [Mass/Vol]98 mg/dL0 - 130 mg/dLBON [facility] Comment on above: LDL Guidelines: <100 Desirable 100-129 Near to/above Desirable 130-159 Borderline >159 Undesirable Direct (measured) LDL and calculated LDL are not interchangeable tests. Cholesterol.total/Cholesterol in HDL [Mass ratio]5.3 {ratio}HighNINF - 5BON [facility] CENTERInterpretation and review of laboratory resultsAbnoChesapeake Regional Medical CenterTriglyceride [Mass/Vol]107 mg/dLNINF - 150 mg/dLBON [facility] MED[facility] CENTERComment on above: Triglyceride Guidelines: <150 Desirable 150-199 Borderline 200-499 High >499 Very high Based on AHA Guidelines for fasting triglyceride, December 2011. [facility] CENTERLipid Profileon 58-80-6435Prdqsvkhfmj [Mass/Vol]147 mg/dLNormal<200MerThe Hospital of Central ConnecticutComment on above:Result Comment: Cholesterol Guidelines: <200 Desirable 200-240 Borderline >240 UndesirablePerformed By: #### TROPI #### [facility] [address] [place] [address] [place] [address] Engagement Specialist: SALLY Ortegaholesterol in HDL [Mass/Vol]28 mg/dLLow>40[facility]state Medical CenterComment on above:Result Comment: HDL Guidelines: <40 Undesirable 40-59 Borderline >59 DesirablePerformed By: #### TROPI #### [facility] [address] [place] [address] [place] [address] Engagement Specialist: SALLY Ortegaholesterol in LDL [Mass/Vol]98 mg/dLNormal0-130 [facility] SouthComment on above:Result Comment: LDL Guidelines: <100 Desirable 100-129 Near to/above Desirable 130-159 Borderline >159 Undesirable Direct (measured) LDL and calculated LDL are not interchangeable tests.Performed By: #### TROPI #### [address] [place] [address] Engagement Specialist: SALLY Ortegaholesterol.total/Cholesterol in HDL [Mass ratio] 5.3 {ratio}High<5[facility] SouthComment on above:Performed By: #### TROPI #### [address] [place] [address] Engagement Specialist: Khadar Tang MDTriglyceride [Mass/Vol]107 mg/dLNormal<150[facility] SouthComment on above:Result Comment: Triglyceride Guidelines: <150 Desirable 150-199 Borderline 200-499 High >499 Very high Based on AHA Guidelines for fasting triglyceride, December 2011.Performed By: #### TROPI #### [address] [place] [address] Engagement Specialist: Suzanne Ortega [id number] Coag (PPP) [Relative time]1.1 {INR}NormalCincinnati Shriners Hospital on above:Result Comment: Therapeutic Range: Moderate Anticoagulant Intensity: INR = 2.0-3.0 High Anticoagulant Intensity: INR = 2.5-3.5Performed By: #### LORETOX, CDP #### [address] [place] [address] Engagement Specialist: YESSENIA Ortega Coag (PPP) [Time]14.8 oTrxnna00.9-14.8Aden[facility] Regional Medical Centerment on above:Performed By: #### LORETOX, CDP #### [address] [place] [address] Engagement Specialist: Sherif Ortega 21-96-4689wDHQ Coag (Bld) [Time]35.6 [facility] on above: IV Heparin Therapy Range: 62.0-94.0 Interpretation and review of laboratory resultsAbnormalPOPLAR SPRINGS HOSPITALProtime-INRon [id number] Coag (PPP) [Relative time] 1.1 {INR}[facility] on above: Therapeutic Range: Moderate Anticoagulant Intensity: INR = 2.0-3.0 High Anticoagulant Intensity: INR = 2.5-3.5 PT Coag (PPP) [Time]14.8 sB[facility] Troponinon 63-91-9225Wozixhdc, High Sens57 ng/LCritically high0-22[facility] Medical CenterComformerly [facility] on above:Result Comment: High Sensitivity Troponin values cannot be compared with other Troponin methodologies.Performed By: #### CMPX, CDP #### [facility] [address] [place] [address] [place] [address] Engagement Specialist: Khadar Tang MDInterpretation and review of laboratory results [facility] Hospitalnin I.cardiac DL <= 0.01 ng/mL [Mass/Vol]57 ng/LCritically high0 - 22 ng/LBRiverside Doctors' Hospital [facility] on above:High Sensitivity Troponin values cannot be compared with other Troponin methodologies.[facility] Hospitaloponin, High Sens58 ng/LCritically high 0-22[facility] on above:Result Comment: High Sensitivity Troponin values cannot be compared with other Troponin methodologies.Performed By: #### TROPI #### [facility] [address] [place] [address] [place] [address] Engagement Specialist: Khadar Tang MDInterpretation and review of laboratory results AbnormalHenrico Doctors' Hospital—Henrico Campusnin I.cardiac DL <= 0.01 ng/mL [Mass/Vol]58 ng/LCritically high0 - 22 ng/LBON [facility] on above:High Sensitivity Troponin values cannot be compared with other Troponin methodologies.[facility] MEDICAL CENTERTroponin, High Sens59 ng/LCritically high 0-22[facility] CenterComformerly [facility] on above:Result Comment: High Sensitivity Troponin values cannot be compared with other Troponin methodologies.Performed By: #### CMPX, CDP #### [facility] [address] [place] [address] [place] [address] Engagement Specialist: Khadar Tang MDInterpretation and review of laboratory results AbnormalBON [facility] MEDICAL CENTERTroponin I.cardiac DL <= 0.01 ng/mL [Mass/Vol]59 ng/LCritically high0 - 22 ng/LBON [facility] MEDICAL CENTERComment on above:High Sensitivity Troponin values cannot be compared with other Troponin methodologies.[facility] MEDICAL CENTERType + Screenon 60-21-3098Nfwm + Screen Sample Expiration 06/27/2022,2359 Arm Band Number [id number] ABO/Rh(D) A NEGATIVE Antibody Screen NEGATIVE Unit Number [id number] Blood Component Type Leukocyte Reduced Red Cell Unit Division 00 Status of Unit TRANSFUSED Transfusion Status OK TO TRANSFUSE Crossmatch Result COMPATIBLENormalSelect Medical Specialty Hospital - Columbus SouthComment on above: Performed By: #### LORETOX, CDP #### [facility] [address] [place] [address] [place] [address] Engagement Specialist: Khadar Tang MDVitamin B12 & Folateon 63-80-4592Bvxwnsebr (Vitamin B12) [Mass/Vol]446 pg/mL232 - 1245 pg/mLSENTARA WILLIAMSBURG REGIONAL MEDICAL CENTERFolate [Mass/Vol]8.2 ng/mL4.8 - PINF ng/mLBON [facility] MEDICAL CENTERBON [facility] MEDICAL CENTERCBC auto differentialon 70-17-3898Lsuzmazh Eos #0.65HighBON [facility] MEDICAL CENTERAbsolute Immature Granulocyte0.06[facility] HEALTHAbsolute Lymph # 1.94[facility] HEALTHAbsolute Haralson #0.72B[facility] SOUTHBasophils (Bld) [#/Vol]0.04 10*3/uLBON SECOURS [facility] SOUTHBasophils/100 WBC (Bld)0 %0 - 2 %[facility] SECST. ELIZABETH HOSPITALEosinophils/100 WBC (Bld)7 %High1 - 4 %[facility] MEDICAL CENTERHematocrit (Bld) [Volume fraction]25.0 %Low40.7 - 50.3 %[facility] MEDICAL CENTERHemoglobin (Bld) [Mass/Vol]7.5 g/dLLow13.0 - 17.0 g/dLBON [facility] MEDICAL CENTERImmature granulocytes/100 WBC (Bld)1 %Egla5NXL [facility] Interpretation and review of laboratory resultsAbnormalBON [facility] Lymphocytes/100 WBC (Bld)22 %Low24 - 43 %[facility] HOSPITALH (RBC) [Entitic mass]23.3 pgLow25.2 - 33.5 pgBON ADENA PIKE MEDICAL CENTERHC (RBC) [Mass/Vol]30.0 g/dL28.4 - 34.8 g/dLBON ADENA PIKE MEDICAL CENTERV (RBC) [Entitic vol]77.6 fLLow82.6 - 102.9 fLSENTARA WILLIAMSBURG REGIONAL MEDICAL CENTERMonocytes/100 WBC (Bld)8 %3 - 12 %[facility] MEDICAL CENTERNRBC Automated0.00.0 per 100 WBCSENTARA WILLIAMSBURG REGIONAL MEDICAL CENTERPlatelet distribution width (Bld) [Ratio]16.4 %High11.8 - 14.4 %[facility] MEDICAL CENTERPlatelet mean volume (Bld) [Entitic vol]8.7 fL8.1 - 13.5 fL [facility] MEDICAL CENTERPlatelets (Bld) [#/Vol]263 10*3/uLSENTARA WILLIAMSBURG REGIONAL MEDICAL CENTERRBC (Bld) [#/Vol]3.22 10*6/uLLow4.21 - 5.77 m/[facility] Segmented neutrophils/100 WBC (Bld)62 %36 - 65 %[facility] CENTERSegs Absolute5.55BON [facility] MEDICAL CENTERWBC (Bld) [#/Vol]9.0 10*3/uLBON [facility] HEALTH CENTERCBC with Diffon 52-85-6306Whu. Basophil0.04 k/uLNormal0.00-0.20[facility] SouthComment on above:Performed By: #### CMPX, CDP #### [facility] [address] [place] [place] [address] Engagement Specialist: Audra Ortega.Imm.Granulocyte0.06 k/uLNormal0.00-0.30[facility] - [facility] SouthComment on above:Performed By: #### CMPX, CDP #### [address] [place] [place] [address] Engagement Specialist: Audra Ortega.Neutrophil (Seg)5.55 k/uLNormal1.50-8.10[facility] - [facility] SouthComment on above:Performed By: #### CMPX, CDP #### [address] [place] [place] [address] Engagement Specialist: Khadar Tnag MDBasophils/100 WBC (Bld)0 %Normal0-2MZanesville City Hospital HospitalComment on above:Performed By: #### CMPX, CDP #### [address] [place] [place] [address] Engagement Specialist: Khadar Tang MDEosinophils (Bld) [#/Vol]0.65 10*3/uLHigh0.00-0.44 [facility] SouthComformerly [facility] on above:Performed By: #### CMPX, CDP #### [address] [place] [place] [address] Engagement Specialist: TOOTIE Ortegaosinophils/100 WBC (Bld)7 %High1-4[facility] Preble HospitalComment on above:Performed By: #### CMPX, CDP #### [address] [place] [place] [address] Engagement Specialist: Khadar Tang MDErythrocyte distribution width (RBC) [Ratio]16.4 % High11.8-14.4[facility] - [facility] SouthComment on above:Performed By: #### CMPX, CDP #### [address] [place], [place] [address] Engagement Specialist: Khadar Tang MDHematocrit (Bld) [Volume fraction]25.0 %Low 40.7-50.3Mer[facility] Albion HospitalComment on above:Performed By: #### CMPX, CDP #### [address] [place] [address] Engagement Specialist: Khadar Tang MDHemoglobin (Bld) [Mass/Vol]7.5 g/dLLow13.0-17.0 [facility] HospitalComment on above:Performed By: #### CMPX, CDP #### [address] [place] [place] [address] Engagement Specialist: Khadar Tang MDImmature granulocytes/100 WBC (Bld)1 %Slbn7Vpfiu Tiffin HospitalComment on above:Performed By: #### CMPX, CDP #### [address] [place], [place] [address] Engagement Specialist: Khadar Tang MDLymphocytes (Bld) [#/Vol]1.94 10*3/uLNormal 1.10-3.70Mercy Albion HospitalComment on above:Performed By: #### CMPX, CDP #### [address] [place], [place] [address] Engagement Specialist: Kailyn Ortegamphocytes/100 WBC (Bld)22 %Wyi58-40Rbeat Albion HospitalComment on above:Performed By: #### CMPX, CDP #### [address] [place], [facility]83 Engagement Specialist: MORENO OrtegaCH (RBC) [Entitic mass]23.3 pgLow25.2-33.5Mercy Albion HospitalComment on above:Performed By: #### CMPX, CDP #### [address] [place], [facility]83 Engagement Specialist: MORENO OrtegaCHC (RBC) [Mass/Vol]30.0 g/tGDblnyq18.4-34.8[facility] SouthComment on above:Performed By: #### CMPX, CDP #### [address] [place], [place] [id number] Engagement Specialist: MORENO OrtegaCV (RBC) [Entitic vol]77.6 fLLow82.6-102.9[facility] - [facility] SouthComment on above:Performed By: #### CMPX, CDP #### [address] [place], [place] [address] Engagement Specialist: MORENO Ortegaonocytes (Bld) [#/Vol]0.72 10*3/uLNormal0.10-1.20 [facility] SouthComment on above:Performed By: #### CMPX, CDP #### [address] [place] [address] Engagement Specialist: MORENO Ortegaonocytes/100 WBC (Bld)8 %Normal3-12[facility] - [facility] SouthComment on above:Performed By: #### CMPX, CDP #### [address] [place], [place] 487[address]83 Engagement Specialist: Khadar Tang MDNeutrophil (Seg)62 %Bjybzh12-40GoisnSelect Medical Specialty Hospital - Columbus SouthComment on above:Performed By: #### CMPX, CDP #### [address] [place] [address] Engagement Specialist: Khadar Tang MDNRBC Automated0.0 per 100 WBCNormal0.0[facility] - [facility] SouthComment on above:Performed By: #### CMPX, CDP #### [address] [place], [place] [phone] Engagement Specialist: LAWRENCE Ortegalatelet mean volume (Bld) [Entitic vol]8.7 fL Normal8.1-13.5[facility] HospitalComment on above:Performed By: #### CMPX, CDP #### [address] [place] [address] Engagement Specialist: Laila Ortega (d) [#/Vol]263 10*3/mPVsespu211-682 [facility] HospitalComment on above:Performed By: #### CMPX, CDP #### [address] [place], [place] [id number] ([address] Engagement Specialist: CLEOPATRA Ortega ([facility]) [#/Vol]3.22 10*6/uLLow4.21-5.77MerSt. John of God Hospital HospitalComment on above:Performed By: #### CMPX, CDP #### [address] [place] [address] Engagement Specialist: KEO Ortega ([facility]) [#/Vol]9.0 10*3/uLNormal3.5-11.3Mer[facility] Albion HospitalComment on above:Performed By: #### CMPX, CDP #### [address] [place] [address] Engagement Specialist: SALLY Ortegaomp Metabolic Pr/rfx MGon 63-57-0462Jilcfbe [Mass/Vol]2.9 g/dLLow3.5-5.2[facility] Albion HospitalComment on above:Performed By: #### CMPX, CDP #### [address] [place], [place] [address]783 Engagement Specialist: Khadar Tang MDAlbumin/Glob Ratio0.7Low1.0-2.5[facility] HospitalComment on above:Performed By: #### CMPX, CDP #### [address] [place] [address] Engagement Specialist: Lisa Ortega Phos89 U/KXvvysg72-245QnyizSelect Medical Specialty Hospital - Columbus SouthComment on above:Performed By: #### CMPX, CDP #### [address] [place], [place] [address]183 Engagement Specialist: Khadar Tang MDALT [Catalytic activity/Vol]11 U/LNormal5-41[facility] - [facility] SouthComment on above:Performed By: #### CMPX, CDP #### [address] [place], [place] 2055283 Engagement Specialist: Khadar Tang MDAnion gap [Moles/Vol]8 mmol/LLow9-17[facility] - [facility] SouthComment on above:Performed By: #### CMPX, CDP #### [address] [place], [place] 2425683 Engagement Specialist: Khadar Tang MDAST [Catalytic activity/Vol]12 U/LNormal<40[facility] HospitalComment on above:Performed By: #### CMPX, CDP #### [address] [place] [address] Engagement Specialist: Khadar Tang MDBilirubin [Mass/Vol]0.2 mg/dLLow0.3-1.2MercSharon HospitalComment on above:Performed By: #### CMPX, CDP #### [facility] [address] [place] [address] [place] [address] Engagement Specialist: Khadar Tang MDBUN/CRE Tbivv45Javf8-13CmmpkSelect Medical Specialty Hospital - [facility] South Comment on above:Performed By: #### CMPX, CDP #### [address] [place], [place] [address]23783 Engagement Specialist: Khadar Tang MDCalcium [Mass/Vol]9.0 mg/dLNormal8.6-10.4MerThe Hospital of Central ConnecticutComment on above:Performed By: #### CMPX, CDP #### [address] [place] [address] Engagement Specialist: SALLY Ortegahloride [Moles/Vol]115 mmol/XVkpn55-208XvldfSelect Medical Specialty Hospital - Columbus SouthComment on above:Performed By: #### CMPX, CDP #### [address] [place] [address] Engagement Specialist: SALLY OrtegaO2 [Moles/Vol]17 mmol/OVpt29-58RzzwsSelect Medical Specialty Hospital - Columbus SouthComment on above:Performed By: #### CMPX, CDP #### [address] [place], [place] [address]70283 Engagement Specialist: SALLY Ortegareatinine [Mass/Vol]1.55 mg/dLHigh0.70-1.20[facility] SouthComment on above:Performed By: #### CMPX, CDP #### [address] [place] [address] Engagement Specialist: Khadar Tang MDGFR/1.73 sq M.predicted among non-blacks MDRD (S/P/Bld) [Vol rate/Area]51 mL/min/{1.73_m2}Low>60[facility] Hospitalcy Midstate Medical CenterComment on above:Result Comment: These results [...] tubular secretion.Performed By: #### CMPX, CDP #### [address] [place] [address] Engagement Specialist: Khadar Tang MDGlucose [Mass/Vol]119 mg/pZSsqg25-79Hmkxl [facility]state Medical CenterComment on above:Performed By: #### CMPX, CDP #### [address] [place] [address] Engagement Specialist: LAWRENCE Ortegaotassium [Moles/Vol]5.4 mmol/LHigh3.7-5.3MZanesville City Hospital HospitalComment on above:Performed By: #### CMPX, CDP #### [address] [place], [place] [phone] Engagement Specialist: Khadar Tang MDProtein [Mass/Vol]7.1 g/dLNormal6.4-8.3MZanesville City Hospital HospitalComment on above:Performed By: #### CMPX, CDP #### [address] [place], [place] 4302883 Engagement Specialist: Khadar Tang MDSodium [Moles/Vol]140 mmol/PFinawx933-122MjvdwSelect Medical Specialty Hospital - Columbus SouthComment on above:Performed By: #### CMPX, CDP #### [address] [place], [place] 3857483 Engagement Specialist: Khadar Tang MDUrea nitrogen [Mass/Vol]38 mg/dLHigh8-23[facility] SouthComment on above:Performed By: #### CMPX, CDP #### [address] [place], [place] 8886983 Engagement Specialist: SALLY Ortegaomprehensive Metabolic Panel w/ Reflex to MGon 13-34-9178Dciiibw [Mass/Vol]2.9 g/dLLow3.5 - 5.2 g/dLBON [facility] Albumin/Globulin [Mass ratio]0.7 {ratio}Low1.0 - 2.5BON [facility] MEDICAL CENTERALP [Catalytic activity/Vol]89 U/L40 - 129 U/LBON [facility] MED[facility] CENTERALT [Catalytic activity/Vol]11 U/L5 - 41 U/LBON [facility] MED[facility] CENTERAnion gap [Moles/Vol]8 mmol/LLow9 - 17 mmol/LBON [facility] MEDICAL CENTERAST [Catalytic activity/Vol]12 U/L NINF - 40 U/LBON [facility] MED[facility] CENTERBilirubin [Mass/Vol]0.2 mg/dLLow0.3 - 1.2 mg/dLBON [facility] MED[facility] CENTERCalcium [Mass/Vol]9.0 mg/dL8.6 - 10.4 mg/dLBON [facility] MEDICAL CENTERChloride [Moles/Vol]115 mmol/LHigh98 - 107 mmol/LBON [facility] MED[facility] CENTERCO2 [Moles/Vol]17 mmol/LLow20 - 31 mmol/LBON [facility] Creatinine [Mass/Vol]1.55 mg/dLHigh0.70 - 1.20 mg/dLBON [facility] GFR/1.73 sq M.predicted MDRD (S/P/Bld) [Vol rate/Area]51 mL/min/{1.73_m2}Low- PINFBON [facility] SYSTEM TWIN CITY MEDICAL CENTERComment on above: These results are not intended [...] that affects renal tubular secretion. Glucose [Mass/Vol]119 mg/fXTvav25 - 99 mg/dLBON [facility] Interpretation and review of laboratory resultsAbnormalSENTARA [facility] Potassium [Moles/Vol]5.4 mmol/LHigh3.7 - 5.3 mmol/LBON [facility] Protein [Mass/Vol]7.1 g/dL6.4 - 8.3 g/dLBON [facility] MED[facility] CENTERSodium [Moles/Vol]140 mmol/L135 - 144 mmol/LBON [facility] MEDICAL CENTERUrea nitrogen [Mass/Vol]38 mg/dLHigh8 - 23 mg/dLBON [facility] MEDICAL CENTERUrea nitrogen/Creatinine (Bld) [Mass ratio]37Luvm1 - 20BON [facility] MED[facility] CENTERBON [facility] MEDICAL CENTEREKG 12 LeadOrdered By: Michelle Noe on 33-49-4590Qxbvqx Rate60 BPMSENTARA WILLIAMSBURG REGIONAL MED[facility] Work Phone: P [id number] [employer] Work Phone: P-R [id number] [facility] [employer] Work Phone: Q-T [id number] [facility] [employer] Work Phone: QRS Geoddugh33 [facility] [employer] Work Phone: QTc Calculation (Bazett)388 [facility] [employer] Work Phone: R [id number] [employer] Work Phone: T [id number] [employer] Work Phone: Ventricular [id number] [employer] Work Phone: BON [employer] Work Phone: [phone] 12 Leadon 06-23-2022 Poor data quality, interpretation may be adversely affected Normal sinus rhythm Normal ECG When compared with ECG of 22-JUN-2022 13:14, (unconfirmed) Borderline criteria for Anterolateral infarct are no longer Present Criteria for Inferior infarct are no longer Present T wave inversion no longer evident in Inferior leads Confirmed by Michelle Noe MD ([id number]) on 06/23/2022 3:18:16 [facility]MEAST[facility] Michelle Noe MD - 06/23/2022 Poor data quality, interpretation may be adversely affected Normal sinus rhythm Normal ECG When compared with ECG of 22-JUN-2022 13:14, (unconfirmed) Borderline criteria for Anterolateral infarct are no longer Present Criteria for Inferior infarct are no longer Present T wave inversion no longer evident in Inferior leads Confirmed by Michelle Noe MD ([id number]) on 06/23/2022 3:18:16 PM [facility] [employer] Work Phone: eKG Rhythm Stripon 29-20-7619LWIJSST. RITA'S HOSPITALGenscript Technology [facility]1C CompanyGlucose, Whole Bloodon 26-05-1894Fsdnbfe [Mass/Vol]230 mg/sQAafi92 - 100 mg/dLB[facility] HEALTHInterpretation and review of laboratory resultsAbnormalBON SECOURS [facility] HEALTHBON SECOURS J.W. RUBY MEMORIAL HOSPITALY HEALTHUrinalysison 52-95-6750Wuhjrdkgo UrineNegativeNEGATIVEBON [facility]OU[facility] HEALTHColor, UAYellowYellowBON SECAC[facility] HEALTHGlucose Auto test strip (U) [Mass/Vol]NegativeNEGATIVEBON SECOURS J.W. RUBY MEMORIAL HOSPITALY HEALTHKetones (U) [Mass/Vol]Negative NEGATIVEBON SECAC[facility] HEALTHLeukocyte esterase Auto test strip Ql (U) NegativeNEGATIVEBON [facility]OU[facility] HEALTHNitrite Auto test strip Ql (U)Negative NEGATIVEBON SECOURS MERCY HEALTHProtein (U) [Mass/Vol]6.0 mg/dL5.0 - 9.0BON SECOURS J.W. RUBY MEMORIAL HOSPITALY HEALTHProtein (U) [Mass/Vol]NegativeNEGATIVEBON [facility] HEALTHSpecific Michael, UA1.0201.010 - 1.020BON [facility] MEDICAL CENTERTurbidity UA ClearClearBON [facility] HEALTHUrine HgbNegativeNEGATIVEBON SECST. ELIZABETH HOSPITALUrobilinogen, UrineNormalNormalBON SECOURS [facility] SOUTHBON [facility] HEALTHUrinalysis, Routineon 74-75-1363Wbfgximpr, SemiQt,UrNegativeNormalNEGMerThe Hospital of Central ConnecticutComment on above:Performed By: #### UA #### [facility] [address] [place], [place] [address] Engagement Specialist: Carlos Ortega, UrineNegativeNormalSelect Medical [facility] [place] Comment on above:Performed By: #### UA #### [facility] [address] [place], [place] [address] Engagement Specialist: Danitza Ortega ()ClearNormalCMercer County Community Hospital Comment on above:Performed By: #### UA #### [facility] [address] [place] [address] Engagement Specialist: SALLY Ortegaolor (U)YellowNoPaulding County Hospital Comment on above:Performed By: #### UA #### [facility] [address] [place] [address] Dr. [place], [place] [phone] Engagement Specialist: Khadar Tang MDGlucose Ql (U)NegativeNormalNEGMerThe Hospital of Central ConnecticutComment on above:Performed By: #### UA #### [facility] [address] [place] [address] Dr. [place], [facility]83 Engagement Specialist: Khadar Tang MDKetones Ql (U)NegativeNormalNEGMercy Albion HospitalComment on above:Performed By: #### UA #### [address] [place] [place] [address] Engagement Specialist: Khadar Tang MDLeukocyte esterase Test strip Ql (U)NegativeNormal NEGMercy Midstate Medical CenterComment on above:Performed By: #### UA #### [address] [place], [facility]83 Engagement Specialist: Khadar Tang MDNitrite,UrNegativeNormalSelect Medical [facility] [place] Comment on above:Performed By: #### UA #### [address] [place], [facility]83 Engagement Specialist: LAWRENCE Ortega,Ur6.5Trrkou0.0-9.0[facility] Hospitalcy Midstate Medical CenterComment on above:Performed By: #### UA #### [facility] [address] [place] [address] Dr. [place], [facility]83 Engagement Specialist: LAWRENCE Ortegarotein Ql (U)NegativeNormalNEGKettering Health Preble HospitalComment on above:Performed By: #### UA #### [facility] [address] [place] [address] Dr. [place], [facility]83 Engagement Specialist: SAMMI Ortegapec. Michael,Ur1.077Wkzbzv6.010-1.020MerThe Hospital of Central ConnecticutComment on above:Performed By: #### UA #### [facility] [address] [place] [address] Engagement Specialist: Tg OrtegaUniversity Hospitals Ahuja Medical CenterComment on above:Performed By: #### UA #### [facility] [address] [place] [address] Engagement Specialist: Khadar Tang MDXR ANKLE RIGHT (MIN 3 VIEWS)on 58-34-7638FN ANKLE RIGHT (MIN 3 VIEWS)EXAMINATION: THREE XRAY [...] Signed by: Derrick Squires MD 06/23/22 Final resultNoAultman Orrville Hospital1. Nonspecific diffuse subcutaneous edema. 2. Periostitis at the lateral aspect of the fibula distally. There was osteomyelitis in this region previously. This could reflect chronic osteomyelitis. Elsewhere, there is no subcutaneous air or evidence of osteomyelitis. [facility] RIS CONSOLIDATEDEXAMINATION: THREE XRAY VIEWS OF [...] lesion is noted. Calcaneal spurring appears unchanged. [facility] Derrick Barraza MD - 06/23/2022 EXAMINATION: [...] no subcutaneous air or evidence of osteomyelitis. [employer] Phone: radiology Study observation (narrative)[employer] Phone: XR ANKLE RIGHT (MIN 3 VIEWS)Ordered By: Derrick Squires on 39-10-4864VPV Who is Undercover Spy Phone: Basic Metabolic Panelon 21-20-5613Tacla gap [Moles/Vol]9 mmol/L9 - 17 mmol/LBON [facility] HEALTHCalcium [Mass/Vol]9.5 mg/dL8.6 - 10.4 mg/dLBON Novarra HEALTHChloride [Moles/Vol]112 mmol/LHigh 98 - 107 mmol/LBON [facility] HEALTHCO2 [Moles/Vol]17 mmol/LLow20 - 31 mmol/L WITOICreatinine [Mass/Vol]2 mg/dLHigh0.70 - 1.20 mg/dLBON [facility] HEALTHGFR/1.73 sq M.predicted MDRD (S/P/Bld) [Vol rate/Area]38 mL/min/{1.73_m2}Low- PINFBON BurppleComment on above: These results are not intended [...] that affects renal tubular secretion. Glucose [Mass/Vol]137 mg/nUWswk41 - 99 mg/dLBON [facility] Interpretation and review of laboratory resultsAbnormalBON [facility] Potassium [Moles/Vol]6.1 mmol/LCritically high3.7 - 5.3 mmol/LBON [facility] CENTERSodium [Moles/Vol]138 mmol/L135 - 144 mmol/LBON [facility] MED[facility] CENTERUrea nitrogen [Mass/Vol]45 mg/dLHigh8 - 23 mg/dLBON [facility] MED[facility] CENTERUrea nitrogen/Creatinine (Bld) [Mass ratio]26Cfzc9 - 20BON [facility]ALTH CENTERBasic Metabolic Profon [id number] [Moles/Vol]6.1 mmol/LCritically high3.7-5.3[facility]state Medical CenterComment on above:Performed By: #### TROPI #### [facility] [address] [place] [address] [address] [place] [address] Engagement Specialist: Khadar Tang MDAnijohn gap [Moles/Vol]9 mmol/LNormal9-17[facility] SouthComment on above:Performed By: #### TROPI #### [facility] [address] [place] [address] [address] [place] [address] Engagement Specialist: Khadar Tang MDBUN/CRE Bdhrp19Kszw8-74EhervSelect Medical Specialty Hospital - [facility] South Comment on above:Performed By: #### TROPI #### [address] [place] [address] Engagement Specialist: SALLY Ortegaalcium [Mass/Vol]9.5 mg/dLNormal8.6-10.4[facility] SouthComment on above:Performed By: #### TROPI #### [address] [place] [address] Engagement Specialist: SALLY Ortegahloride [Moles/Vol]112 mmol/VBqrp60-338EkvbvSelect Medical Specialty Hospital - Columbus SouthComment on above:Performed By: #### TROPI #### [address] [place], [place] [id number] Engagement Specialist: SALLY OrtegaO2 [Moles/Vol]17 mmol/TTin71-01YfvpvSelect Medical Specialty Hospital - Columbus SouthComment on above:Performed By: #### TROPI #### [address] [place] [address] Engagement Specialist: SALLY Ortegareatinine [Mass/Vol]2.00 mg/dLHigh0.70-1.20[facility] SouthComment on above:Performed By: #### TROPI #### [address] [place] [address] Engagement Specialist: Khadar Tang MDGFR/1.73 sq M.predicted among non-blacks MDRD (S/P/Bld) [Vol rate/Area]38 mL/min/{1.73_m2}Low>60[facility] SouthComment on above:Result Comment: These results are not [...] renal tubular secretion.Performed By: #### TROPI #### [address] [place] [address] Engagement Specialist: Khadar Tang MDGlucose [Mass/Vol]137 mg/fMFwuz52-84Vbmbk Midstate Medical CenterComment on above:Performed By: #### TROPI #### [address] [place] [address] Engagement Specialist: SAMMI Ortegaodium [Moles/Vol]138 mmol/PJpljtt683-220UgpmwSelect Medical Specialty Hospital - Columbus SouthComment on above:Performed By: #### TROPI #### [facility] [address] [place] [address] Engagement Specialist: Khadar Tang MDUrea nitrogen [Mass/Vol]45 mg/dLHigh8-23[facility] - [facility] SouthComment on above:Performed By: #### TROPI #### [facility] [address] [place] [address] Engagement Specialist: Khadar Tang [facility] ENIDBC with Auto Differentialon [id number] Eos #0.86HighBON SECOURS J.[facility] HOSPITALY TRI[facility] HOSPITALAbsolute Immature Granulocyte0.09B[facility]ITALY HEALTHAbsolute Lymph #1.97B[facility]ITALY HEALTHAbsolute Haralson # 0.88BON SEC[facility]RS [facility] SOUTHBasophils (Bld) [#/Vol]0.05 10*3/uLBON SECOURS J.[facility]OSPITALY [facility] NORTH HOSPITALBasophils/100 WBC (Bld)0 %0 - 2 %[facility]Y TRI[facility] BETHES[facility] NORTH HOSPITALEosinophils/100 WBC (Bld)7 %High1 - 4 %B[facility]UM[facility] SOUTHHematocrit (Bld) [Volume fraction]27.6 %Low40.7 - 50.3 %BON SECODESSA [facility] CENTERY HEALTHHemoglobin (Bld) [Mass/Vol]8.3 g/dLLow13.0 - 17.0 g/dLBON SECOURS [facility] SOUTHImmature granulocytes/100 WBC (Bld)1 %Lite6IWT SECOURS [facility]OSPITALY HEALTHInterpretation and review of laboratory resultsAbnormalBON SEC[facility]RS [facility]OS[facility]ITALY TRI[facility]ALTH BETHESDA NORTH HOSPITALLymphocytes/100 WBC (Bld)15 %Low24 - 43 %BON SECACMC HEALTHCARE SYSTEMH (RBC) [Entitic mass]23.3 pgLow 25.2 - 33.5 pgBON SECACMC HEALTHCARE SYSTEMHC (RBC) [Mass/Vol]30.1 g/dL28.4 - 34.8 g/dLBON SECOURS MERCY HEALTHMCV (RBC) [Entitic vol]77.5 fLLow82.6 - 102.9 fLBON SECUZMA [facility] SOUTHMonocytes/100 WBC (Bld)7 %3 - 12 %[facility] NRBC Automated0.00.0 per 100 WBCBON SECODESSA MEMORIAL HEALTHCARE CENTERY HEALTHPlatelet distribution width (Bld) [Ratio]16.2 %High11.8 - 14.4 %BON SECST. ELIZABETH HOSPITALPlatelet mean volume (Bld) [Entitic vol]8.6 fL8.1 - 13.[address] [facility] HEALTHPlatelets (Bld) [#/Vol]338 10*3/uLBON [facility] HEALTHRBC (Bld) [#/Vol]3.56 10*6/uLLow 4.21 - 5.77 m/uLBON SECST. ELIZABETH HOSPITALSegmented neutrophils/100 WBC (Bld)70 % High36 - 65 %[facility] MEDICAL CENTERSegs Absolute8.91HighBON SECST. ELIZABETH HOSPITALWBC (Bld) [#/Vol]12.8 10*3/uLHighBON SECOURS [facility] SOUTHBON SECST. ELIZABETH HOSPITALAbsolute Eos #0.84HighBON SECOURS [facility] SOUTHAbsolute Immature Granulocyte0.06B[facility] SEC[facility] SOUTHAbsolute Lymph #1.69BON [facility] HOSPITALY [facility] HOSPITALAbsolute Haralson #0.82BON SECST. ELIZABETH HOSPITALBasophils (Bld) [#/Vol]0.04 10*3/uLBON SECST. ELIZABETH HOSPITALBasophils/100 WBC (Bld)0 %0 - 2 %[facility] MEDICAL CENTEREosinophils/100 WBC (Bld)7 %High1 - 4 %[facility] Hematocrit (Bld) [Volume fraction]27.1 %Low40.7 - 50.3 %[facility] Cellectis Hemoglobin (Bld) [Mass/Vol]8.7 g/dLLow13.0 - 17.0 g/dLBON [facility] Cellectis Immature granulocytes/100 WBC (Bld)1 %Gnsu4QIC [facility] Interpretation and review of laboratory resultsAbnormalBON [facility] Lymphocytes/100 WBC (Bld)14 %Low24 - 43 %[facility] MEDICAL CENTERMCH (RBC) [Entitic mass]25.3 pg25.2 - 33.5 pgBON ADE[facility] PIKE MEDICAL CENTERHC (RBC) [Mass/Vol] 32.1 g/dL28.4 - 34.8 g/dLBON ADENA PIKE MEDICAL CENTERV (RBC) [Entitic vol]78.8 fL Low82.6 - 102.9 fLSENTARA WILLIAMSBURG REGIONAL MEDICAL CENTERMonocytes/100 WBC (Bld)7 %3 - 12 %[facility] MEDICAL CENTERNRBC Automated0.00.0 per 100 WBCSENTARA WILLIAMSBURG [facility]IONAL [facility]ENTER Platelet distribution width (Bld) [Ratio]16.4 %High11.8 - 14.4 %[facility] MEDICAL CENTERPlatelet mean volume (Bld) [Entitic vol]9.4 fL8.1 - 13.5 fLSENTARA WILLIAMSBURG REGIONAL MEDICAL CENTERPlatelets (Bld) [#/Vol]345 10*3/uLSENTARA WILLIAMSBURG REGIONAL MEDICAL CENTER RBC (Bld) [#/Vol]3.44 10*6/uLLow4.21 - 5.77 m/uLSENTARA WILLIAMSBURG REGIONAL MEDICAL [facility]ENTER Segmented neutrophils/100 WBC (Bld)71 %High36 - 65 %[facility] CENTERSegs Absolute9.06HighSENTARA WILLIAMSBURG REGIONAL MEDICAL CENTERWBC (Bld) [#/Vol]12.5 10*3/uLHighRIVERSIDE DOCTORS' HOSPITAL WILLIAMSBURGCBC with Diffon [id number]. Basophil0.05 k/uLNormal0.00-0.20[facility] SouthComment on above:Performed By: #### MARGARITO MG, CP #### [address] [place] [address] Engagement Specialist: Audra Ortega.Imm.Granulocyte0.09 k/uLNormal0.00-0.30[facility] SouthComment on above:Performed By: #### MARGARITO, MG, CP #### [facility] [address] [place] [address] [place] [address] Engagement Specialist: Audra Ortega.Neutrophil (Seg)8.91 k/uLHigh1.50-8.10[facility]ble HospitalComment on above:Performed By: #### CDP, MG, CP #### [address] [place] [place] [address] Engagement Specialist: Khadar Tang MDBasophils/100 WBC (Bld)0 %Normal0-2[facility] Albion HospitalComment on above:Performed By: #### CDP, MG, CP #### [address] [place] [place] [address] Engagement Specialist: Khadar Tang MDEosinophils (Bld) [#/Vol]0.86 10*3/uLHigh0.00-0.44 [facility] HospitalComment on above:Performed By: #### CDP, MG, CP #### [address] [place] [id number] Engagement Specialist: TOOTIE Ortegaosinophils/100 WBC (Bld)7 %High1-4[facility] HospitalComment on above:Performed By: #### CDP, MG, CP #### [address] [place] [id number] Engagement Specialist: Khadar Tang MDErythrocyte distribution width (RBC) [Ratio]16.2 % High11.8-14.4[facility] HospitalComment on above:Performed By: #### CDP, MG, CP #### [address] [place], [place] [address] Engagement Specialist: Khadar Tang MDHematocrit (Bld) [Volume fraction]27.6 %Low 40.7-50.3Mwood county hospitaly Albion HospitalComment on above:Performed By: #### CDP, MG, CP #### [address] [place] [id number] Engagement Specialist: Khadar Tang MDHemoglobin (Bld) [Mass/Vol]8.3 g/dLLow13.0-17.0 [facility] HospitalComment on above:Performed By: #### CDP, MG, CP #### [address] [place], [place] [address] Engagement Specialist: Khadar Tang MDImmature granulocytes/100 WBC (Bld)1 %Wojk1OdxfbKettering Health Preble HospitalComment on above:Performed By: #### CDP, MG, CP #### [address] [place], [place] [address] Engagement Specialist: Khadar Tang MDLymphocytes (Bld) [#/Vol]1.97 10*3/uLNormal 1.10-3.70[facility] HospitalComment on above:Performed By: #### CDP, MG, CP #### [address] [place], [facility]83 Engagement Specialist: Kailyn Ortegamphocytes/100 WBC (Bld)15 %Xua02-85Ibsyx [facility]iffin HospitalComment on above:Performed By: #### CDP, MG, CP #### [address] [place], [facility]83 Engagement Specialist: MORENO OrtegaCH (RBC) [Entitic mass]23.3 pgLow25.2-33.5[facility] HospitalComment on above:Performed By: #### CDP, MG, CP #### [address] [place], [facility]83 Engagement Specialist: MORENO OrtegaCHC (RBC) [Mass/Vol]30.1 g/pOSnqksp48.4-34.8[facility] HospitalComment on above:Performed By: #### CDP, MG, CP #### [address] [place] [address] Engagement Specialist: MORENO OrtegaCV (RBC) [Entitic vol]77.5 fLLow82.6-102.9[facility] SouthComment on above:Performed By: #### CDP, MG, CP #### [address] [place] [address] Engagement Specialist: MORENO Ortegaonocytes (Bld) [#/Vol]0.88 10*3/uLNormal0.10-1.20 [facility] SouthComment on above:Performed By: #### CDP, MG, CP #### [address] [place] [address] Engagement Specialist: MORENO Ortegaonocytes/100 WBC (Bld)7 %Normal3-12[facility] SouthComment on above:Performed By: #### CDP, MG, CP #### [address] [place], [place] [address] Engagement Specialist: Damir Ortegaophil (Seg)70 %Qntx85-14IbtjcSelect Medical Specialty Hospital [facility] Comment on above:Performed By: #### CDP, MG, CP #### [address] [place] [address] Engagement Specialist: Khadar Tang MDNRBC Automated0.0 per 100 WBCNormal0.0[facility] SouthComment on above:Performed By: #### CDP, MG, CP #### [address] [place], [facility]83 Engagement Specialist: LAWRENCE Ortegalatelet mean volume (Bld) [Entitic vol]8.6 fL Normal8.1-13.5[facility] SouthComment on above:Performed By: #### CDP, MG, CP #### [address] [place], [place] [phone] Engagement Specialist: LAWRENCE Ortegalatelets (Bld) [#/Vol]338 10*3/cEWlbrhf246-117 [facility] HospitalComment on above:Performed By: #### MARGARITO, MG, CP #### [address] [place], [place] [address] Engagement Specialist: VIKY OrtegaBC (Bld) [#/Vol]3.56 10*6/uLLow4.21-5.77MerSt. John of God Hospital HospitalComment on above:Performed By: #### MARGARITO MG, CP #### [address] [place], [place] [address] Engagement Specialist: KEO Ortega (Bld) [#/Vol]12.8 10*3/uLHigh3.5-11.3[facility] HospitalComment on above:Performed By: #### MARGARITO MG, CP #### [address] [place] [place] [address] Engagement Specialist: Audra Ortega. Basophil0.04 k/uLNormal0.00-0.20[facility] HospitalComment on above:Performed By: #### TROPI #### [address] [place], [place] [address] Engagement Specialist: MDAbs. ShannonImm.Granulocyte0.06 k/uLNormal0.00-0.30MerSt. John of God Hospital HospitalComment on above:Performed By: #### TROPI #### [address] [place], [place] [address] Engagement Specialist: Audra Ortega.Neutrophil (Seg)9.06 k/uLHigh1.50-8.10[facility] HospitalComment on above:Performed By: #### TROPI #### [address] [place] [place] [address] Engagement Specialist: Joyce Ortegasophils/100 WBC (Bld)0 %Normal0-2[facility] HospitalComment on above:Performed By: #### TROPI #### [address] [place], [facility]83 Engagement Specialist: Khadar Tang MDEosinophils (Bld) [#/Vol]0.84 10*3/uLHigh0.00-0.44 [facility] HospitalComment on above:Performed By: #### TROPI #### [address] [place], [place] [address] Engagement Specialist: TOOTIE Ortegaosinophils/100 WBC (Bld)7 %High1-4[facility] HospitalComment on above:Performed By: #### TROPI #### [address] [place] [id number] Engagement Specialist: Khadar Tang MDErythrocyte distribution width (RBC) [Ratio]16.4 % High11.8-14.4[facility] HospitalComment on above:Performed By: #### TROPI #### [address] [place], [facility]83 Engagement Specialist: Khadar Tang MDHematocrit (Bld) [Volume fraction]27.1 %Low 40.7-50.3[facility] HospitalComment on above:Performed By: #### TROPI #### [address] [place], [place] [address] Engagement Specialist: Khadar Tang MDHemoglobin (Bld) [Mass/Vol]8.7 g/dLLow13.0-17.0 [facility] HospitalComment on above:Performed By: #### TROPI #### [address] [place] [id number] Engagement Specialist: Khadar Tang MDImmature granulocytes/100 WBC (Bld)1 %Ldle4ExgexKettering Health Preble HospitalComment on above:Performed By: #### TROPI #### [address] [place], [facility]83 Engagement Specialist: Khadar Tang MDLymphocytes (Bld) [#/Vol]1.69 10*3/uLNormal 1.10-3.70[facility] HospitalComment on above:Performed By: #### TROPI #### [address] [place] [address] Engagement Specialist: Kailyn Ortegamphocytes/100 WBC (Bld)14 %Xut89-48Hkocg Tiffin HospitalComment on above:Performed By: #### TROPI #### [address] [place] [address] Engagement Specialist: MORENO OrtegaCH (RBC) [Entitic mass]25.3 pdVuaerh59.2-33.5 [facility] HospitalComment on above:Performed By: #### TROPI #### [address] [place] [address] Engagement Specialist: PEEWEE OrtegaC (RBC) [Mass/Vol]32.1 g/pFVzurhc19.4-34.8[facility] HospitalComment on above:Performed By: #### TROPI #### [address] [place] [address] Engagement Specialist: MORENO OrtegaCV (RBC) [Entitic vol]78.8 fLLow82.6-102.9[facility] HospitalComment on above:Performed By: #### TROPI #### [address] [place], [place] [id number] Engagement Specialist: MORENO Ortegaonocytes (Bld) [#/Vol]0.82 10*3/uLNormal0.10-1.20 [facility] HospitalComment on above:Performed By: #### TROPI #### [address] [place] [address] Engagement Specialist: Khadar Tang MDMonocytes/100 WBC (Bld)7 %Normal3-12[facility] SouthComment on above:Performed By: #### TROPI #### [address] [place] [address] Engagement Specialist: Khadar Tang MDNeutrophil (Seg)71 %Jsmk21-41[facility] Comment on above:Performed By: #### TROPI #### [address] [place] [address] Engagement Specialist: SOLEDAD Ortega Automated0.0 per 100 WBCNormal0.0[facility] SouthComment on above:Performed By: #### TROPI #### [address] [place], [place] [id number] Engagement Specialist: Dweayne Ortegatelenard mean volume (Bld) [Entitic vol]9.4 fL Normal8.1-13.5[facility] SouthComment on above:Performed By: #### TROPI #### [address] [place] [address] Engagement Specialist: LAWRENCE Ortegalatelets (Bld) [#/Vol]345 10*3/tBLbqzcc378-634 [facility] SouthComment on above:Performed By: #### TROPI #### [facility] [address] [place] [address] Dr. [place], [place] [address] Engagement Specialist: VIKY OrtegaBC (Bld) [#/Vol]3.44 10*6/uLLow4.21-5.77[facility] SouthComment on above:Performed By: #### TROPI #### [address] [place], [place] [phone] Engagement Specialist: BERT OrtegaBC (Bld) [#/Vol]12.5 10*3/uLHigh3.5-11.3[facility] Medical CenterComment on above:Performed By: #### TROPI #### [facility] [address] [place] [address] Engagement Specialist: Khadar Tang [facility] [id number] [Mass/Vol]3.2 g/dLLow3.5 - 5.2 g/dLBON [facility] CENTERAlbumin/Globulin [Mass ratio]0.7 {ratio}Low1.0 - 2.5BON [facility] HEALTHALP [Catalytic activity/Vol]101 U/L40 - 129 U/LBON [facility] HEALTHALT [Catalytic activity/Vol]8 U/L5 - 41 U/LBON [facility] MED[facility] CENTERAnion gap [Moles/Vol]11 mmol/L9 - 17 mmol/LBON [facility] HEALTHAST [Catalytic activity/Vol]13 U/LNINF - 40 U/LBON [facility] CENTERBilirubin [Mass/Vol]mg/dLLow0.3 - 1.2 mg/dLBON [facility] HEALTHCalcium [Mass/Vol]9.1 mg/dL8.6 - 10.4 mg/dLBON [facility] HEALTHChloride [Moles/Vol]110 mmol/LHigh 98 - 107 mmol/LBON [facility] HEALTHCO2 [Moles/Vol]16 mmol/LLow20 - 31 mmol/L BON [facility] MED[facility] CENTERCreatinine [Mass/Vol]1.93 mg/dLHigh0.70 - 1.20 mg/dLBON [facility] HEALTHGFR/1.73 sq M.predicted MDRD (S/P/Bld) [Vol rate/Area]39 mL/min/{1.73_m2}Low- PINFBON [facility] MEDICAL CENTERComment on above: These results are not intended [...] that affects renal tubular secretion. Glucose [Mass/Vol]148 mg/bCEesg32 - 99 mg/dLBON [facility] Interpretation and review of laboratory resultsAbnormalBON [facility] Potassium [Moles/Vol]6.3 mmol/LCritically high3.7 - 5.3 mmol/LBON [facility] MED[facility] CENTERProtein [Mass/Vol]8.1 g/dL6.4 - 8.3 g/dLBON [facility] MEDICAL CENTERSodium [Moles/Vol]137 mmol/L135 - 144 mmol/LBON [facility] MEDICAL CENTERUrea nitrogen [Mass/Vol]49 mg/dLHigh8 - 23 mg/dLBON [facility] MEDICAL CENTERUrea nitrogen/Creatinine (Bld) [Mass ratio]83Zmlw1 - 20BON [facility] HEALTH CENTERComp Metabolic Profon 74-18-6804Xqzgtxrgz [Mass/Vol]mg/dLLow 0.3-1.2[facility] HospitalComment on above:Performed By: #### CDP, MG, CP #### [address] [place] [address] Engagement Specialist: Khadar Tang MDPotassium [Moles/Vol]6.3 mmol/LCritically high 3.7-5.3[facility] Medical CenterComment on above:Performed By: #### CDP, MG, CP #### [address] [place] [id number] Engagement Specialist: Khadar Tang MDAlbumin [Mass/Vol]3.2 g/dLLow3.5-5.2[facility] Medical CenterComment on above:Performed By: #### CDP, MG, CP #### [address] [place] [address] Engagement Specialist: Khadar Tang MDAlbumin/Glob Ratio0.7Low1.0-2.5[facility] SouthComment on above:Performed By: #### CDP, MG, CP #### [address] [place] [address] Engagement Specialist: Lisa Ortega Ahjr924 U/JLhxugq87-457AuqwiSelect Medical Specialty Hospital - [facility] SouthComment on above:Performed By: #### CDP, MG, CP #### [address] [place], [place] [phone] Engagement Specialist: Khadar Tnag MDALT [Catalytic activity/Vol]8 U/LNormal5-41[facility] HospitalComment on above:Performed By: #### CDP, MG, CP #### [address] [place], [place] [phone] Engagement Specialist: Khadar Tang MDAnion gap [Moles/Vol]11 mmol/LNormal9-17MerSt. John of God Hospital HospitalComment on above:Performed By: #### CDP, MG, CP #### [address] [place], [place] [phone] Engagement Specialist: Khadar Tang MDAST [Catalytic activity/Vol]13 U/LNormal<40MerSt. John of God Hospital HospitalComment on above:Performed By: #### CDP, MG, CP #### [address] [place], [place] 2378[address] Engagement Specialist: Khadar Tang MDBUN/CRE Bezeg30Jmli6-94MnlbjSelect Medical Specialty [facility] Comment on above:Performed By: #### CDP, MG, CP #### [address] [place], [place] [address]58[address]83 Engagement Specialist: Khadar Tang MDCalcium [Mass/Vol]9.1 mg/dLNormal8.6-10.4MerSt. John of God Hospital HospitalComment on above:Performed By: #### CDP, MG, CP #### [address] [place] [address] Engagement Specialist: Khadar Tang MDChloride [Moles/Vol]110 mmol/WBieq28-229Ldxqh [facility]in HospitalComment on above:Performed By: #### CDP, MG, CP #### [address] [place] [address] Engagement Specialist: SALLY OrtegaO2 [Moles/Vol]16 mmol/SXaq30-32BarqiSelect Medical Specialty Hospital - [facility] SouthComment on above:Performed By: #### CDP, MG, CP #### [address] [place] [address] Engagement Specialist: SALLY Ortegareatinine [Mass/Vol]1.93 mg/dLHigh0.70-1.20[facility] SouthComment on above:Performed By: #### MARGARITO, MG, CP #### [address] [place] [address] Engagement Specialist: Khadar Tang MDGFR/1.73 sq M.predicted among non-blacks MDRD (S/P/Bld) [Vol rate/Area]39 mL/min/{1.73_m2}Low>60[facility] SouthComment on above:Result Comment: These results are not [...] secretion.Performed By: #### MARGARITO, MG, CP #### [address] [place] [address] Engagement Specialist: Khadar Tang MDGlucose [Mass/Vol]148 mg/hBPomk65-62Igvtt Albion HospitalComment on above:Performed By: #### MARGARITO, MG, CP #### [address] [place] [address] Engagement Specialist: LAWRENCE Ortegarotein [Mass/Vol]8.1 g/dLNormal6.4-8.3[facility] HospitalComment on above:Performed By: #### CDP, MG, CP #### [facility] [address] [place], [place] [id number] Engagement Specialist: SAMMI Ortegaodium [Moles/Vol]137 mmol/MKpwzgl003-885GgsqeSelect Medical Specialty Hospital - [place] SouthComment on above:Performed By: #### CDP, MG, CP #### [facility] [address] [place], [place] [id number] [phone] Engagement Specialist: Soo Ortega nitrogen [Mass/Vol]49 mg/dLHigh8-23[facility] SouthComment on above:Performed By: #### MARGARITO, MG, CP #### [facility] [address] [place], [place] [id number] Engagement Specialist: Khadar Tang MDEKG 12 LeadOrdered By: Michelle Noe on 06-22-2022 Atrial [id number] Kitchen Hotline Phone: [phone] Plno09umrlplsQUDT-Networks Phone: P-R Ibhenvgm009 wvEmprego Ligado Phone: Q-T [id number] wvEmprego Ligado Phone: [phone] Rmihwyaa32 wvEmprego Ligado Phone: QTc Calculation (Constantino)386 wvEmprego Ligado Phone: R Eqjf78mgylghaGFP [facility] HOSPITALBemDireto Phone: T [place]-8degreesEmprego Ligado Phone: Ventricular Bjzc44CRLOIL [employer] Phone: BON [employer] Phone: EKG 12 Leadon [phone] bradycardia Inferior infarct , age undetermined Possible Anterolateral infarct , age undetermined Abnormal ECG When compared with ECG of 24-APR-2015 18:25, Vent. rate has decreased BY 39 BPM Borderline criteria for Anterolateral infarct are now Present T wave inversion now evident in Inferior leads QT has shortened Confirmed by Michelle Noe MD ([id number]) on 06/22/2022 10:09:31 [facility] Michelle Noe MD - 06/22/2022 Sinus bradycardia Inferior infarct , age undetermined Possible Anterolateral infarct , age undetermined Abnormal ECG When compared with ECG of 24-APR-2015 18:25, Vent. rate has decreased BY 39 BPM Borderline criteria for Anterolateral infarct are now Present T wave inversion now evident in Inferior leads QT has shortened Confirmed by Michelle Noe MD ([id number]) on 06/22/2022 10:09:31 PM [facility] Work Phone: Magnesiumon [phone] [Mass/Vol]2.0 mg/dL Normal1.6-2.6Mer[facility] Midstate Medical CenterComment on above:Performed By: #### CDP, MG, CP #### [facility] [address] [place] [address] Engagement Specialist: Khadar Tang MDMagnesium [Mass/Vol]2.0 mg/dL1.6 - 2.6 mg/dLBON [facility] MED[facility] CENTERBON [facility] PELVIS WO CONon [id number] PELVIS WO CONEXAMINATION: CT PELVIS WO CON [...] Electronically authenticated by: JESUSITA PAPPAS Date: 2022-03-14 09:50[facility] HospitalGLYCOHEMOGLOBIN A1Con [id number] RECOMMENDATIONADA THERAPEUTIC TARGET 6.0 - 7.0 ACTION SUGGESTED > 7.0[facility] Comment on above:Performed By: #### A1C #### [facility] [address] [address] [address] Juan SmithGlucose [Mass/Vol]180 mg/dLNoTrumbull Memorial HospitalComment on above:Performed By: #### A1C #### [facility] [address] [address] [address] Juan SmithHbA1c (Bld) [Mass fraction]7.9 %Critically high<=6.0The [facility] Brentwood HospitalComment on above:Performed By: #### A1C #### [facility] [address] [address] [address] Juan Verduzco,Aerobe/Anaerobeon [phone] Description .TISSUE RIGHT MEDIAL HEEL POST IRRIGATIONSpecial Requests NOT REPORTEDDirect Ex am NO NEUTROPHILS SEEN NO BACTERIA SEEN Culture METHICILLIN RESISTANT STAPHYLOCOCCUS AUREUS SCANT GROWTH For susceptibility, refer to previous culture. STREPTOCOCCI, BETA HEMOLYTIC GROUP C SCANT GROWTH DIPHTHEROIDS SCANT GROWTH NO ANAEROBIC ORGANISMS ISOLATED AT 5 DAYS Report Status FINAL 04/15/2017 [facility] HospitalComment on above:Performed By: #### AANC ####[employer] [place] [address] [phone] Neutrophils Specimen Description .TISSUE RIGHT ANKLE PRE IRRIGATIONSpecial Requests NOT REPORTEDDirect Exam NO NEUTROPHILS SEEN RARE GRAM POSITIVE COCCI IN PAIRS Culture METHICILLIN RESISTANT STAPHYLOCOCCUS AUREUS LIGHT GROWTH For susceptibility, refer to previous culture. STREPTOCOCCI, BETA HEMOLYTIC GROUP C SCANT GROWTH NO ANAEROBIC ORGANISMS ISOLATED AT 5 DAYS Report Status FINAL 04/15/2017NoWood County HospitalComment on above:Performed By: #### AANC ####[address] [id number] NeutrophilsSpecimen Description .TISSUE RIGHT MEDIAL HEEL PRE IRRIGATIONSpecial Requests NOT REPORTEDDirect Exam NO NEUTROPHILS SEEN NO BACTERIA SEEN Culture STREPTOCOCCI, BETA HEMOLYTIC GROUP C LIGHT GROWTH METHICILLIN RESISTANT STAPHYLOCOCCUS AUREUS SCANT GROWTH For susceptibility, refer to previous culture. DIPHTHEROIDS LIGHT GROWTH NO ANAEROBIC ORGANISMS ISOLATED AT 5 DAYS Report Status FINAL 04/15/2017NoWood County HospitalComment on above:Performed By: #### AANC ####Citizen.[address] [phone] Basic Metabolic Profon 04-13-2017(cont.)[facility] HospitalComment on above:Result Comment: Average GFR for 50-59 years old: 93 mL/min/1.73sq mChronic Kidney Disease: <60 mL/min/1.73sq mKidney failure: <15 mL/min/1.73sq meGFR calculated using average adult body mass. Ad ditional eGFR calculator available at:http://www.[employer]/multiple_crcl_2012.htm[address] [address] Performed By: #### CDP, CMPX, CRP, SED, GLYHGB ####Gautamy [address]jr[address] [place] [address] Anion gap11 mmol/LNormal9-17[facility] NorthComment on above:Performed By: #### CDP, CMPX, CRP, SED, GLYHGB ####[facility] Vzlanomgpadd3287 [place] [address] Dgzvczg7.7 mg/dLNormal8.6-10.4[facility] Comment on above:Performed By: #### CDP, CMPX, CRP, SED, GLYHGB ####Gautamlowell [address]wuxclyztu[address] [place] [address] Ykpqzimg260 mmol/LNormal 98-107[facility] NorthComment on above:Performed By: #### CDP, CMPX, CRP, SED, GLYHGB ####[facility] Hjsdusielxjj35[address] [place] [address] CO222 mmol/QNcdcwt82-02LdfgwSelect Medical Specialty Hospital - Cincinnati NorthComment on above:Performed By: #### CDP, CMPX, CRP, SED, GLYHGB ####[facility] Cfljenjlgwem3840 [place] [address] Wiosaxitoy4.04 mg/dLNormal0.70-1.20[facility] NorthComment on above:Performed By: #### CDP, CMPX, CRP, SED, GLYHGB ####[facility] Ucdsngtlsilk6995 [place] [address] eGFR (non-black)mL/min/{1.73_m2}Normal>60MerAlvarado Hospital Medical CenterComment on above:Performed By: #### CDP, CMPX, CRP, SED, GLYHGB ####[facility] Fxwhwmpujqpd7430 [place] [address] Glucose mass jvlm104 mg/jZFbqf90-11Sebpn Hammond General HospitalComment on above:Performed By: #### CDP, CMPX, CRP, SED, GLYHGB ####Gautamy Kwcrglpjnvlk1166 [place] [address] Potassium molar conc4.1 mmol/LNormal3.7-5.3Mer[facility] Hammond General HospitalComment on above:Performed By: #### CDP, CMPX, CRP, SED, GLYHGB ####Gautamy Fabfateuyiau8240 [place] [address] Pyveno178 mmol/BKqaidi815-163KzpdfSelect Medical Specialty Hospital - Cincinnati NorthComment on above:Performed By: #### CDP, CMPX, CRP, SED, GLYHGB ####Gautamy J[address]qwbzhcypc0[address] [place] [address] Urea svwwiqmg10 mg/dLNormal6-20[facility] NorthComment on above:Performed By: #### CDP, CMPX, CRP, SED, GLYHGB ####Audra Zghreuuagjxu[address] [place] [address] BUN/CRE Ratio NOT REPORTEDNormal9-20[facility] NorthComment on above:Performed By: #### CDP, CMPX, CRP, SED, GLYHGB ####Gautamy Vawfsoxemuxq8[address] [place] [address] Staging:NOT REPORTEDNormalSelect Medical Specialty Hospital - Cincinnati NorthComment on above:Performed By: #### CDP, CMPX, CRP, SED, GLYHGB ####[facility] [address]fw[address]yl[address] [place] [address] CBC with Diff on 39-05-9503Kwf. Basophil<0.62Lbwhjq2.00-0.20[facility] Comment on above:Performed By: #### CDP, CMPX, CRP, SED, GLYHGB ####[facility] [address]qsvs[address] [place] [address] Abs.Neutrophil (Seg)4.97 k/uLNormal1.50-8.10[facility] NorthComment on above:Performed By: #### CDP, CMPX, CRP, SED, GLYHGB ####[address] [address] Basophils/100 WBC Auto (Bld)0 %Normal0-2MKaiser Martinez Medical CenterComment on above:Performed By: #### CDP, CMPX, CRP, SED, GLYHGB ####[place] [address] Eosinophils0.24 10*3/uLNormal0.00-0.44[facility] NorthComment on above:Performed By: #### CDP, CMPX, CRP, SED, GLYHGB ####[place] [address] Eosinophils/100 leukocytes3 %Normal1-4 [facility] NorthComment on above:Performed By: #### CDP, CMPX, CRP, SED, GLYHGB ####[address] [address] Erythrocyte distribution width Auto Ratio (RBC)14.8 %High11.8-14.4 [facility] NorthComment on above:Performed By: #### CDP, CMPX, CRP, SED, GLYHGB ####[address] [address] Erythrocyte morphologyANISOCYTOSIS PRESENTNormalSelect Medical Specialty Hospital - Cincinnati NorthComment on above:Result Comment: [address] [address] Performed By: #### CDP, CMPX, CRP, SED, GLYHGB ####[address] [address] Erythrocytes (RBC)0.0 per 100 WBCNormal0.0[facility] NorthComment on above: Performed By: #### CDP, CMPX, CRP, SED, GLYHGB ####[address] [address] Erythrocytes (RBC)3.42 10*6/uLLow4.21-5.77[facility] NorthComment on above:Performed By: #### CDP, CMPX, CRP, SED, GLYHGB ####[address] [address] Granulocytes/100 WBC (Bld)0.19 k/uLNormal0.00-0.30[facility] NorthComment on above:Performed By: #### CDP, CMPX, CRP, SED, GLYHGB ####[place] [address] Hematocrit (HCT)29.4 % Low40.7-50.3MercLos Banos Community HospitalComment on above:Performed By: #### CDP, CMPX, CRP, SED, GLYHGB ####Gautam[address] [address] Hemoglobin mass conc (Bld)8.8 g/dLLow13.0-17.0[facility] NorthComment on above:Performed By: #### CDP, CMPX, CRP, SED, GLYHGB ####[place] [address] Immature granulocytes #/vol (Bld)2 %Zwlk5UrdbzSelect Medical Specialty Hospital - Cincinnati NorthComment on above:Performed By: #### CDP, CMPX, CRP, SED, GLYHGB ####[place] [address] Gnzkuhlmipn3.00 10*3/uL Normal1.10-3.70[facility] NorthComment on above:Performed By: #### CDP, CMPX, CRP, SED, GLYHGB ####[facility] [address]zecehsj[address] [place] [address] Lymphocytes/100 gpoeabqltg71 %Cclgjx27-85ZilrpSelect Medical Specialty Hospital - Cincinnati NorthComment on above:Performed By: #### CDP, CMPX, CRP, SED, GLYHGB ####[address] [address] MJV60.7 pg Rgxxyy74.2-33.5[facility] NorthComment on above:Performed By: #### CDP, CMPX, CRP, SED, GLYHGB ####[address] [address] MCHC mass conc (RBC)29.9 g/pVEpbfvy84.4-34.8[facility] NorthComment on above:Performed By: #### CDP, CMPX, CRP, SED, GLYHGB ####[address] [address] WXX82.0 fL Mfweaz19.6-102.9[facility] NorthComment on above:Performed By: #### CDP, CMPX, CRP, SED, GLYHGB ####[address] [address] Qlfilbwbp9.53 10*3/uLNormal0.10-1.20[facility] NorthComment on above:Performed By: #### CDP, CMPX, CRP, SED, GLYHGB ####[address] [address] Monocytes/100 leukocytes 7 %Normal3-12[facility] NorthComment on above:Performed By: #### CDP, CMPX, CRP, SED, GLYHGB ####[address] [address] Neutrophil (Seg)63 %Czdlea27-46Vtrbg [facility] Canyon Medical CenterComment on above:Performed By: #### CDP, CMPX, CRP, SED, GLYHGB ####[facility] Clnzfrorqsqt24[address] [place] [address] Platelet mean volume (PMV)9.9 fLNormal8.1-13.5[facility] NorthComment on above: Performed By: #### CDP, CMPX, CRP, SED, GLYHGB ####[facility] [address]bsjdswfvvk[address] [place] [address] Xpjdbnziy640 10*3/gYFxwocm510-925VugazSelect Medical Specialty Hospital - Cincinnati NorthComment on above:Performed By: #### CDP, CMPX, CRP, SED, GLYHGB ####[facility] Jssqvgpsiywo57[address] [place] [address] WBC (Leukocytes)8.0 10*3/uLNormal3.5-11.3MercLos Banos Community HospitalComment on above:Performed By: #### CDP, CMPX, CRP, SED, GLYHGB ####[facility] Aqzohxohcnie[address] [place] [address] Auto Diff PerformedNOT REPORTEDNoal [facility] NorthComment on above:Performed By: #### CDP, CMPX, CRP, SED, GLYHGB ####[facility] Qjqyhnvyzasj[address] [place] [address] PlateletsNOT REPORTEDNormalSelect Medical Specialty Hospital - Cincinnati NorthComment on above:Performed By: #### CDP, CMPX, CRP, SED, GLYHGB ####[facility] Rjyydbnzftki[address] [place] [address] WBC MorphologyNOT REPORTEDNoalSelect Medical Specialty Hospital - Cincinnati NorthComment on above:Performed By: #### CDP, CMPX, CRP, SED, GLYHGB ####[facility] Httylwqfcfgj08[address] [place] [address] Discharge Summaryon [id number] IP Note OR Ordnance Truck 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 Mechanic NormalSelect Medical Specialty Hospital - Cincinnati NorthPlan of Careon [id number] IP Note OR TranscriptionNormalMercy Hammond General HospitalHI IP Note OR Ordnance Truck 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 Mechanic NormalSelect Medical Specialty Hospital - Cincinnati NorthProgress Noteon [id number] IP Note OR TranscriptionNormalMercy Hammond General HospitalHI IP Note OR Ordnance Truck 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 Mechanic NormalParma Community General Hospitalcy Hammond General HospitalHI IP Note OR TranscriptionNormalMercy Hammond General HospitalHIM IP Note OR TranscriptionNormalMercy Hammond General HospitalHI IP Note OR TranscriptionNormalMercy [facility] Hospital HIM IP Note OR TranscriptionNormalParma Community General Hospitalcy Hammond General HospitalBasic Metabolic Profon 04-12-2017(cont.)NormalSelect Medical Specialty Hospital - Cincinnati NorthComment on above:Result Comment: Average GFR for 50-59 years old: 93 mL/min/1.73sq mChronic Kidney Disease: <60 mL/min/1.73sq mKidney failure: <15 mL/min/1.73sq meGFR calculated using average adult body mass. Additional eGFR calculator available at:http://www.[employer]/multiple_crcl_2012.[place] [address] ([phone] By: #### CDP, CMPX, CRP, SED, GLYHGB ####[facility] HospitalSpottedKbhnwuabmatr[address] [place] [address] Anion gap8 mmol/LLow9-17[facility] NorthComment on above: Performed By: #### CDP, CMPX, CRP, SED, GLYHGB ####[employer] [place] [address] Calcium8.8 mg/dLNormal8.6-10.4[facility] NorthComment on above:Performed By: #### CDP, CMPX, CRP, SED, GLYHGB ####[employer] [place] [address] Aafpjaat556 mmol/BYgnscs66-078DxogiSelect Medical Specialty Hospital - Cincinnati NorthComment on above:Performed By: #### CDP, CMPX, CRP, SED, GLYHGB ####Gautamy Xftzleuumqpi1891 [place] [address] JL284 mmol/TKyfxjj72-90FxonuAlvarado Hospital Medical CenterComment on above:Performed By: #### CDP, CMPX, CRP, SED, GLYHGB ####[facility] Cyqmnswplhmz4926[address] [place] [address] Vziyurofni4.01 mg/dL Normal0.70-1.20[facility] NorthComment on above:Performed By: #### CDP, CMPX, CRP, SED, GLYHGB ####[facility] Lfjivlwyybxr4174[address] [place] [address] eGFR (non-black)mL/min/{1.73_m2}Normal>60[facility] NorthComment on above:Performed By: #### CDP, CMPX, CRP, SED, GLYHGB ####[facility] Xgkdkwvzlvvs12[address] [place] [address] Glucose mass xlbq489 mg/yKDbia56-77JwjrjKaiser Martinez Medical CenterComment on above:Performed By: #### CDP, CMPX, CRP, SED, GLYHGB ####[facility] Qabejyjvsrhz[address] [place] [address] Potassium molar conc3.9 mmol/LNormal3.7-5.3MKaiser Martinez Medical CenterComment on above:Performed By: #### CDP, CMPX, CRP, SED, GLYHGB ####[facility] Hmbwqshlrill8072 [place] [address] Xhsakt052 mmol/VRckzhq042-355ArfeaAlvarado Hospital Medical CenterComment on above: Performed By: #### CDP, CMPX, CRP, SED, GLYHGB ####[facility] [address]vhqqikcdy[address] [place] [address] [phone] ttakjbiq85 mg/dLNormal6-20[facility] NorthComment on above:Performed By: #### CDP, CMPX, CRP, SED, GLYHGB ####Audra [address] [phone]/CRE Ratio NOT REPORTEDNormal9-20[facility] NorthComment on above:Performed By: #### CDP, CMPX, CRP, SED, GLYHGB ####[address] [phone]:NOT REPORTEDNormalSelect Medical Specialty Hospital - Cincinnati NorthComment on above:Performed By: #### CDP, CMPX, CRP, SED, GLYHGB ####[address] [phone] with Diff on 36-41-9022Uzk. Basophil<0.24Upjhwu1.00-0.20[facility] Comment on above:Performed By: #### CDP, CMPX, CRP, SED, GLYHGB ####Gautam[address] [address] Abs.Neutrophil (Seg)4.31 k/uLNormal1.50-8.10[facility] NorthComment on above:Performed By: #### CDP, CMPX, CRP, SED, GLYHGB ####Audra [address] [phone]/100 WBC Auto (Bld)0 %Normal0-2MercLos Banos Community HospitalComment on above:Performed By: #### CDP, CMPX, CRP, SED, GLYHGB ####[address] [address] Eosinophils0.21 10*3/uLNormal0.00-0.44[facility] NorthComment on above:Performed By: #### CDP, CMPX, CRP, SED, GLYHGB ####[address] [address] Eosinophils/100 leukocytes3 %Normal1-4 [facility] NorthComment on above:Performed By: #### CDP, CMPX, CRP, SED, GLYHGB ####[address] [address] Erythrocyte distribution width Auto Ratio (RBC)14.7 %High11.8-14.4 [facility] NorthComment on above:Performed By: #### CDP, CMPX, CRP, SED, GLYHGB ####[address] [address] Erythrocyte morphologyANISOCYTOSIS PRESENTNormalMerAlvarado Hospital Medical CenterComment on above:Result Comment: [address] [address] Performed By: #### CDP, CMPX, CRP, SED, GLYHGB ####[place] [address] Erythrocytes (RBC)3.45 10*6/uLLow4.21-5.77[facility] NorthComment on above: Performed By: #### CDP, CMPX, CRP, SED, GLYHGB ####[address] [address] Granulocytes/100 WBC (Bld)0.22 k/uLNormal 0.00-0.30[facility] NorthComment on above:Performed By: #### CDP, CMPX, CRP, SED, GLYHGB ####[place] [address] Hematocrit (HCT)28.9 %Low40.7-50.3MKaiser Martinez Medical CenterComment on above:Performed By: #### CDP, CMPX, CRP, SED, GLYHGB ####[facility] Uhckjqcvyazn[address] [place] [address] Hemoglobin mass conc (Bld)8.9 g/dLLow13.0-17.0[facility] NorthComment on above: Performed By: #### CDP, CMPX, CRP, SED, GLYHGB ####[address] [address] Immature granulocytes #/vol (Bld)3 %Phod4LhieaSelect Medical Specialty Hospital - Cincinnati NorthComment on above:Performed By: #### CDP, CMPX, CRP, SED, GLYHGB ####[address] [address] Lymphocytes1.83 10*3/uLNormal1.10-3.70[facility] NorthComment on above:Performed By: #### CDP, CMPX, CRP, SED, GLYHGB ####[address] [address] Lymphocytes/100 zrfvfupria81 %Kegfpb52-16 [facility] NorthComment on above:Performed By: #### CDP, CMPX, CRP, SED, GLYHGB ####[address] [address] MCH25.8 vrUbtirl80.2-33.5[facility] NorthComment on above:Performed By: #### CDP, CMPX, CRP, SED, GLYHGB ####[address] [address] MCHC mass conc (RBC)30.8 g/dLNormal 28.4-34.8[facility] NorthComment on above:Performed By: #### CDP, CMPX, CRP, SED, GLYHGB ####[address] [address] JTF30.8 gFKpbkco63.6-102.9[facility] Comment on above:Performed By: #### CDP, CMPX, CRP, SED, GLYHGB ####[address] [address] Ifdayaxaa5.58 10*3/uL Normal0.10-1.20[facility] NorthComment on above:Performed By: #### CDP, CMPX, CRP, SED, GLYHGB ####[address] [address] Monocytes/100 leukocytes8 %Normal3-12[facility] NorthComment on above:Performed By: #### CDP, CMPX, CRP, SED, GLYHGB ####[address] [address] Neutrophil (Seg)60 % Hyqlhv84-63QjnppSelect Medical Specialty Hospital - Cincinnati NorthComment on above:Performed By: #### CDP, CMPX, CRP, SED, GLYHGB ####[address] [address] Platelet mean volume (PMV)9.3 fLNormal8.1-13.5[facility] NorthComment on above:Performed By: #### CDP, CMPX, CRP, SED, GLYHGB ####[place] [address] Lmevtveew534 10*3/tCJjvzka356-205YvajjSelect Medical Specialty Hospital - Cincinnati NorthComment on above:Performed By: #### CDP, CMPX, CRP, SED, GLYHGB ####[place] [address] WBC (Leukocytes)7.2 10*3/uLNormal3.5-11.3 [facility] NorthComment on above:Performed By: #### CDP, CMPX, CRP, SED, GLYHGB ####Audra J[address]ukyeivexiv[address]65 [place] [address] Auto Diff PerformedNOT REPORTEDFort Hamilton HospitalComment on above:Performed By: #### CDP, CMPX, CRP, SED, GLYHGB ####Gautamy Gcbpzrufoudx[address] [place] [address] PlateletsNOT REPORTED [facility] HospitalComment on above:Performed By: #### CDP, CMPX, CRP, SED, GLYHGB ####Gautamy Tvwgqzwklsfs6274 [place] [address] WBC MorphologyNOT REPORTEDFort Hamilton Hospital Comment on above:Performed By: #### CDP, CMPX, CRP, SED, GLYHGB ####Audra Ffpiharvoubz[address]73 [place] [address] Cult,Aerobe/Anaerobeon 29-62-2424QzpraycbrinWztcbxik Description .TISSUE RIGHT LATERAL ANKLE POST IRRIGATIONSpecial [...] <=1 SUSCEPTIBLETigecycline NOT REPORTEDTrimethoprim/Sulfa <=10 SUSCEPTIBLEVancomycin 1 SUSCEPTIBLENoWood County HospitalComment on above:Performed By: #### AANC ####Gautamy Cfvqvbelazwo0838 [place] [address] Plan of Careon [id number] IP Note OR TranscriptionNormalMercy Hammond General HospitalHIM IP Note OR TranscriptionNormalMercy [facility] Hospital HIM IP Note OR TranscriptionNormalMercy Hammond General HospitalHIM IP Note OR TranscriptionNormalMercy Hammond General HospitalHI IP Note OR Or[employer]ance Truck 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 Mechanic NormalSelect Medical Specialty Hospital - Cincinnati NorthProgress Noteon [id number] IP Note OR TranscriptionNormalMercy Hammond General HospitalHIM IP Note OR Ordnance Truck 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 Mechanic NormalParma Community General Hospitalcy Hammond General HospitalHI IP Note OR TranscriptionNormalMercy Hammond General HospitalHI IP Note OR TranscriptionNormalMercy Hammond General HospitalHI IP Note OR TranscriptionNormalMercy Hammond General Hospital HIM IP Note OR TranscriptionNormalParma Community General Hospitalcy Hammond General HospitalBasic Metabolic Profon 04-11-2017(cont.)NormalSelect [facility] Special[facility] Hospital - Cincinnati NorthComment on above:Result Comment: Average GFR for 50-59 years old: 93 mL/min/1.73sq mChronic Kidney Disease: <60 mL/min/1.73sq mKidney failure: <15 mL/min/1.73sq meGFR calculated using average adult body mass. Additional eGFR calculator available at:http://www.[employer]/multiple_crcl_2012.[place] [address] ([phone] By: #### CDP, CMPX, CRP, SED, GLYHGB ####[facility] [address]vindxpsgq[address] [place] [address] Anion gap14 mmol/LNormal9-17[facility] NorthComment on above: Performed By: #### CDP, CMPX, CRP, SED, GLYHGB ####Audra Ukhwuhxshebn[address] [place] [address] Calcium8.2 mg/dLLow8.6-10.4[facility] NorthComment on above:Performed By: #### CDP, CMPX, CRP, SED, GLYHGB ####[facility] Sgkpungskxlw6999 [place] [address] Oxgzqkup322 mmol/EVdzemv42-159RrlutSelect Medical Specialty Hospital - Cincinnati NorthComment on above:Performed By: #### CDP, CMPX, CRP, SED, GLYHGB ####[facility] Nlpmyzsvkfwm3295 [place] [address] YU253 mmol/IFdrxkw50-09RarfzSelect Medical Specialty Hospital - Cincinnati NorthComment on above:Performed By: #### CDP, CMPX, CRP, SED, GLYHGB ####[facility] Cjinqbdorotk[address] [place] [address] Maaegzhqoh9.16 mg/dL Normal0.70-1.20[facility] - Cincinnati NorthComment on above:Performed By: #### CDP, CMPX, CRP, SED, GLYHGB ####[facility] [address] [place] [address] eGFR (non-black)mL/min/{1.73_m2}Normal>60[facility] Cincinnati NorthComment on above:Performed By: #### CDP, CMPX, CRP, SED, GLYHGB ####[facility] Ybwhrbxlmzby7418 [place] [address] Glucose mass ocnk641 mg/kNNgxw99-06EwxkhKaiser Martinez Medical CenterComment on above:Performed By: #### CDP, CMPX, CRP, SED, GLYHGB ####[facility] Gfnixlzmophu9670 [place] [address] Potassium molar conc4.0 mmol/LNormal3.7-5.3MKaiser Martinez Medical CenterComment on above:Performed By: #### CDP, CMPX, CRP, SED, GLYHGB ####[facility] Zhjncmdzugzp8289 [place] [address] Fcawax415 mmol/NDwpljv277-734QrlmySelect Medical Specialty Hospital - Cincinnati NorthComment on above: Performed By: #### CDP, CMPX, CRP, SED, GLYHGB ####[address] [address] Urea czoeijhe33 mg/dLNormal6-20[facility] NorthComment on above:Performed By: #### CDP, CMPX, CRP, SED, GLYHGB ####[place] [address] BUN/CRE Ratio NOT REPORTEDNormal9-20[facility] NorthComment on above:Performed By: #### CDP, CMPX, CRP, SED, GLYHGB ####[place] [address] Staging:NOT REPORTEDNormalSelect Medical Specialty Hospital - Cincinnati NorthComment on above:Performed By: #### CDP, CMPX, CRP, SED, GLYHGB ####[place] [address] P-Kutnptwj Proteinon 04-11-2017C reactive protein (CRP)55.5 mg/LHigh0.0-5.0[facility] NorthComment on above:Result Comment: [place] [address] Performed By: #### CDP, CMPX, CRP, SED, GLYHGB ####[place] [address] CBC with Diffon [id number]. Basophil<0.46Udbybv8.00-0.20[facility] - Cincinnati NorthComment on above:Performed By: #### CDP, CMPX, CRP, SED, GLYHGB ####[place] [address] Abs.Neutrophil (Seg)5.04 k/uLNormal1.50-8.10[facility] Cincinnati NorthComment on above:Performed By: #### CDP, CMPX, CRP, SED, GLYHGB ####[address] [address] Basophils/100 WBC Auto (Bld)0 %Normal0-2MKaiser Martinez Medical CenterComment on above:Performed By: #### CDP, CMPX, CRP, SED, GLYHGB ####[address] [address] Eosinophils0.24 10*3/uLNormal0.00-0.44[facility] - Cincinnati NorthComment on above:Performed By: #### CDP, CMPX, CRP, SED, GLYHGB ####[address] [address] Eosinophils/100 leukocytes3 %Normal1-4 [facility] - Cincinnati NorthComment on above:Performed By: #### CDP, CMPX, CRP, SED, GLYHGB ####[address] [address] Erythrocyte distribution width Auto Ratio (RBC)14.8 %High11.8-14.4 [facility] - Cincinnati NorthComment on above:Performed By: #### CDP, CMPX, CRP, SED, GLYHGB ####[address] [address] Erythrocyte morphologyANISOCYTOSIS PRESENTNormalSelect Medical Specialty Hospital - Cincinnati NorthComment on above:Result Comment: [address] [address] Performed By: #### CDP, CMPX, CRP, SED, GLYHGB ####[address] [address] Erythrocytes (RBC)3.36 10*6/uLLow4.21-5.77[facility] Cincinnati NorthComment on above: Performed By: #### CDP, CMPX, CRP, SED, GLYHGB ####[address] [address] Granulocytes/100 WBC (Bld)0.09 k/uLNormal 0.00-0.30[facility] - Cincinnati NorthComment on above:Performed By: #### CDP, CMPX, CRP, SED, GLYHGB ####[address] [address] Hematocrit (HCT)28.8 %Low40.7-50.3MKaiser Martinez Medical CenterComment on above:Performed By: #### CDP, CMPX, CRP, SED, GLYHGB ####[address] [address] Hemoglobin mass conc (Bld)8.8 g/dLLow13.0-17.0[facility] - Cincinnati NorthComment on above: Performed By: #### CDP, CMPX, CRP, SED, GLYHGB ####[place] [address] Immature granulocytes #/vol (Bld)1 %Chvf9FxotdSelect Medical Specialty Hospital - Cincinnati NorthComment on above:Performed By: #### CDP, CMPX, CRP, SED, GLYHGB ####[address] [address] Lymphocytes1.73 10*3/uLNormal1.10-3.70[facility] - Cincinnati NorthComment on above:Performed By: #### CDP, CMPX, CRP, SED, GLYHGB ####[address] [address] Lymphocytes/100 hmdvwnuaez05 %Ndv76-47 [facility] - Cincinnati NorthComment on above:Performed By: #### CDP, CMPX, CRP, SED, GLYHGB ####[address] [address] MCH26.2 ilCkglcc62.2-33.5[facility] - Cincinnati NorthComment on above:Performed By: #### CDP, CMPX, CRP, SED, GLYHGB ####Audra [address] [place] [address] MCHC mass conc (RBC)30.6 g/dLNormal 28.4-34.8[facility] Cincinnati NorthComment on above:Performed By: #### CDP, CMPX, CRP, SED, GLYHGB ####Audra [address] [place] [address] DDQ61.7 eIFlhkop54.6-102.9[facility] Comment on above:Performed By: #### CDP, CMPX, CRP, SED, GLYHGB ####[place] [address] Jpryhsvve9.56 10*3/uL Normal0.10-1.20[facility] - Cincinnati NorthComment on above:Performed By: #### CDP, CMPX, CRP, SED, GLYHGB ####[address] [address] Monocytes/100 leukocytes7 %Normal3-12[facility] - Cincinnati NorthComment on above:Performed By: #### CDP, CMPX, CRP, SED, GLYHGB ####Audra [address] [address] Neutrophil (Seg)66 %High 36-65[facility] - Cincinnati NorthComment on above:Performed By: #### CDP, CMPX, CRP, SED, GLYHGB ####[facility] [address] [address] Platelet mean volume (PMV)9.9 fLNormal8.1-13.5[facility] - Cincinnati NorthComment on above:Performed By: #### CDP, CMPX, CRP, SED, GLYHGB ####[address] [phone] 10*3/eTGqcsmg372-363ZvocjAlvarado Hospital Medical CenterComment on above:Performed By: #### CDP, CMPX, CRP, SED, GLYHGB ####Audra [address] [place] [address] WBC (Leukocytes)7.7 10*3/uLNormal3.5-11.3Mer[facility] Hammond General HospitalComment on above:Performed By: #### CDP, CMPX, CRP, SED, GLYHGB ####Audra [address] [place] [address] Auto Diff PerformedNOT [facility] Westside Medical CenterComment on above:Performed By: #### CDP, CMPX, CRP, SED, GLYHGB ####[facility] Ehpgqzlwmgwy[address] [place] [address] [phone] [facility] Medical CenterComment on above:Performed By: #### CDP, CMPX, CRP, SED, GLYHGB ####Audra G[address]rxzozcfln[address] [place] [address] [phone] MorphologyNOT [facility] Medical CenterComment on above: Performed By: #### CDP, CMPX, CRP, SED, GLYHGB ####[facility] [address]revtuvcge[address] [place] [address] [phone] A1Con 00-59-4348Gxmecvp mass ehln556 mg/dLFort Hamilton HospitalComment on above:Result Comment: The ADA and AACC recommend providing the estimated average glucose result to permit better patient understanding of their HBA1c result.[address] [address] [phone] By: #### CDP, CMPX, CRP, SED, GLYHGB ####[address] [address] Hemoglobin A1c/Hemoglobin.total mass fraction (Bld)12.6 %High4.0-6.0[facility] - Cincinnati NorthComment on above:Performed By: #### CDP, CMPX, CRP, SED, GLYHGB ####[employer] [place], [place] [address] Plan of Careon [id number] IP Note OR TranscriptionNormalMercy Hammond General HospitalHI IP Note OR TranscriptionNormalMercy Hammond General HospitalHI IP Note OR TranscriptionNormalMerAlvarado Hospital Medical CenterHI IP Note OR TranscriptionNormalSelect Medical Specialty Hospital - Cincinnati NorthProgress Noteon [id number] IP Note OR TranscriptionNormalMerAlvarado Hospital Medical CenterHI IP Note OR TranscriptionNormalMerAlvarado Hospital Medical CenterHI IP Note OR [employer] 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 Mechanic NormalMercy Hammond General HospitalHI IP Note OR TranscriptionNormalSelect Medical Specialty Hospital - Cincinnati NorthConsulton [id number] IP Note OR TranscriptionNormal [facility] NorthCult,Urine,Cathon [id number],Urine,Cath Specimen Description .CATHETERIZED URINE Special Requests NOT REPORTED Culture PRESUMPTIVE ID: LEO ALBICANS >[id number] CFU/ML Report Status FINAL 04/10/2017Fort Hamilton HospitalComment on above:Performed By: #### CDP, CMPX, CRP, SED, GLYHGB ####[employer] [place] [address] Influenza A + B, PCRon 04-10-2017 Influenza A + B, PCRSpecimen Description .NASOPHARYNGEAL SWABSpecial Requests NOT REPORTEDDirect Exam NEGATIVE: Influenza A and B RNA not detected by nucleic acid amplification. The results obtained should be interpreted in conjunction with clinical findings and other laboratory markers. The performance characterisitics of this molecular test were validated by the molecular microbiology department of [facility] [employer]. Report Status FINAL 04/10/2017Fort Hamilton HospitalComment on above:Performed By: #### CDP, CMPX, CRP, SED, GLYHGB ####[employer] Ukjqkbztlnva8396 [place] [address] OPERATIVE REPORTon [id number] REPORTTRIHEALTH B[facility] [address] [place] [address] OPERATIVE REPORTPATIENT NAME: GANGA STINSON : 1960MED REC NO: [id number] ROOM: [address] [place], [place] [address]OUNT NO: [id number] ADMIT DATE: 04/09/2017PROVIDER: William Foster- JudgeDATE OF [...] recovery. The patient has a primary manager managing, Dr. Sanders, whom I have set outa telephone communication with. The department of Infectious Disease,Internal Medicine, and specialty medicine services will provide care duringthe inpatient admission. Irwin return to the care of Dr. Min [facility], [place], upon discharge.INDICATIONS FOR OPERATION: This is [...] would follow up with his usual manager managing on anoutpatient basis. The departments of Internal Medicine and InfectiousDisease will guide our care in the interim. Cultures should be availablewith sensitivities in approximately 72 hours and consider dischargeplanning then.WILLIAM FOSTER-JUDGED: 04/10/2017 15:31:53 MS/V_SS ROR_IJob#: [id number] Doc#: [id number]: Yakov Oliver [place] Department of Infectious Disease Internal MedicineNormSelect Medical Cleveland Clinic Rehabilitation Hospital, BeachwoodPlan of Careon [id number] IP Note OR TranscriptionNormSelect Medical Cleveland Clinic Rehabilitation Hospital, BeachwoodHIM IP Note OR TranscriptionFort Hamilton HospitalProgress Noteon [id number] IP Note OR TranscriptionFort Hamilton HospitalHI IP Note OR TranscriptionFort Hamilton HospitalXR ANKLE RIGHT STANDARDon 66-26-0517VN ANKLE RIGHT STANDARDEXAMINATION:3 VIEWS OF THE RIGHT [...] Cavazos MD04/09/17inal resultNormalSelect Medical Specialty Hospital - Cincinnati NorthC-Reactive Proteinon 04-09-2017C reactive protein (CRP)114.3 mg/LHigh0.0-5.0MerAlvarado Hospital Medical CenterComment on above:Result Comment: [employer] [address] [place], [place] [id number] ([phone] By: #### CDP, CMPX, CRP, SED, GLYHGB ####[employer] Xanmweiwwqqx[address]703 [place] [address] CBC with Diff on 36-35-0929Flz. Basophil<0.17Gblrgl4.00-0.20[facility] Comment on above:Performed By: #### CDP, CMPX, CRP, SED, GLYHGB ####[address] [address] Abs.Neutrophil (Seg)5.95 k/uLNormal1.50-8.10[facility] NorthComment on above:Performed By: #### CDP, CMPX, CRP, SED, GLYHGB ####[address] [address] Basophils/100 WBC Auto (Bld)0 %Normal0-2MercLos Banos Community HospitalComment on above:Performed By: #### CDP, CMPX, CRP, SED, GLYHGB ####[place] [address] Eosinophils0.11 10*3/uLNormal0.00-0.44[facility] NorthComment on above:Performed By: #### CDP, CMPX, CRP, SED, GLYHGB ####[address] [address] Eosinophils/100 leukocytes1 %Normal1-4 [facility] NorthComment on above:Performed By: #### CDP, CMPX, CRP, SED, GLYHGB ####[address] [address] Erythrocyte distribution width Auto Ratio (RBC)15.0 %High11.8-14.4 [facility] NorthComment on above:Performed By: #### CDP, CMPX, CRP, SED, GLYHGB ####[address] [address] Erythrocyte morphologyANISOCYTOSIS PRESENTNormalSelect Medical Specialty Hospital - Cincinnati NorthComment on above:Result Comment: [employer] [address] [place] [phone] By: #### CDP, CMPX, CRP, SED, GLYHGB ####[address] [address] Erythrocytes (RBC)3.50 10*6/uLLow4.21-5.77[facility] NorthComment on above: Performed By: #### CDP, CMPX, CRP, SED, GLYHGB ####[facility] [address]dsvubjelly[address] [place] [address] Granulocytes/100 WBC (Bld)0.09 k/uLNormal 0.00-0.30[facility] NorthComment on above:Performed By: #### CDP, CMPX, CRP, SED, GLYHGB ####[place] [address] Hematocrit (HCT)29.9 %Low40.7-50.3MercLos Banos Community HospitalComment on above:Performed By: #### CDP, CMPX, CRP, SED, GLYHGB ####[address] [address] Hemoglobin mass conc (Bld)9.0 g/dLLow13.0-17.0[facility] NorthComment on above: Performed By: #### CDP, CMPX, CRP, SED, GLYHGB ####[address] [address] Immature granulocytes #/vol (Bld)1 %Hlag0QqcxzSelect Medical Specialty Hospital - Cincinnati NorthComment on above:Performed By: #### CDP, CMPX, CRP, SED, GLYHGB ####[address] [address] Lymphocytes1.60 10*3/uLNormal1.10-3.70[facility] NorthComment on above:Performed By: #### CDP, CMPX, CRP, SED, GLYHGB ####Gautam [address]kh[address] [place] [address] Lymphocytes/100 yuoyfdwyhv56 %Hey55-01 [facility] NorthComment on above:Performed By: #### CDP, CMPX, CRP, SED, GLYHGB ####[address] [address] MCH25.7 orIqfkeq33.2-33.5[facility] NorthComment on above:Performed By: #### CDP, CMPX, CRP, SED, GLYHGB ####[facility] [address] [address] MCHC mass conc (RBC)30.1 g/dLNormal 28.4-34.8[facility] NorthComment on above:Performed By: #### CDP, CMPX, CRP, SED, GLYHGB ####[address] [address] TIL93.4 mNUwdavk85.6-102.9[facility] Comment on above:Performed By: #### CDP, CMPX, CRP, SED, GLYHGB ####[address] [address] Itkwbsvxp5.53 10*3/uL Normal0.10-1.20[facility] NorthComment on above:Performed By: #### CDP, CMPX, CRP, SED, GLYHGB ####[address] [address] Monocytes/100 leukocytes6 %Normal3-12[facility] NorthComment on above:Performed By: #### CDP, CMPX, CRP, SED, GLYHGB ####[address] [address] Neutrophil (Seg)73 %High 36-65[facility] NorthComment on above:Performed By: #### CDP, CMPX, CRP, SED, GLYHGB ####Audra [address]avrrjybd[address] [place] [address] Platelet mean volume (PMV)9.6 fLNormal8.1-13.5MerAlvarado Hospital Medical CenterComment on above:Performed By: #### CDP, CMPX, CRP, SED, GLYHGB ####Gautamy [address]wostkwel[address] [place] [phone] 10*3/fLNsougi840-669MwdcgAlvarado Hospital Medical CenterComment on above:Performed By: #### CDP, CMPX, CRP, SED, GLYHGB ####Audra [address]uhwdqsedp[address] [place] [address] WBC (Leukocytes)8.3 10*3/uLNormal3.5-11.3[facility] General HospitalComment on above:Performed By: #### CDP, CMPX, CRP, SED, GLYHGB ####[facility] HospitalSpottedPqkhyqxypupa4[address] [place] [address] Auto Diff PerformedNOT REPORTEDNormalSelect Medical Specialty Hospital - Cincinnati NorthComment on above:Performed By: #### CDP, CMPX, CRP, SED, GLYHGB ####Gautamy Uthsqqberank[address] [place] [address] PlateletsNOT REPORTEDNormalSelect Medical Specialty Hospital - Cincinnati NorthComment on above:Performed By: #### CDP, CMPX, CRP, SED, GLYHGB ####[facility] [address]nuoio[address] [place] [address] WBC MorphologyNOT REPORTEDNormalSelect Medical Specialty Hospital - Cincinnati NorthComment on above: Performed By: #### CDP, CMPX, CRP, SED, GLYHGB ####[facility] [address]xttzyfedi[address] [place] [address] Comp Metabolic Pr/rfx MGon 04-09-2017(cont.) NormalSelect Medical Specialty Hospital - Cincinnati NorthComment on above:Result Comment: Average GFR for 50-59 years old: 93 mL/min/1.73sq mChronic Kidney Disease: <60 mL /min/1.73sq mKidney failure: <15 mL/min/1.73sq meGFR calculated using average adult body mass. Additional eGFR calculator available at:http://www.[employer]/multiple_crcl_2012.htm[address] [address] [phone] By: #### CDP, CMPX, CRP, SED, GLYHGB ####[facility] [address]mmvjkzlgg[address] [place] [address] Alanine aminotransferase (ALT)9 U/LNormal5-41[facility] NorthComment on above:Performed By: #### CDP, CMPX, CRP, SED, GLYHGB ####[facility] [address]vitvigblz[address] [place] [phone] g/dLLow3.5-5.2MKaiser Martinez Medical CenterComment on above:Performed By: #### CDP, CMPX, CRP, SED, GLYHGB ####[facility] [address]iklinaqvj[address] [place] [address] Albumin/Globulin Ratio0.7 {ratio}Low1.0-2.5[facility] Comment on above:Performed By: #### CDP, CMPX, CRP, SED, GLYHGB ####[facility] [address]fzyizbihc[address] [place] [address] Alkaline Phos57 U/L Ykuepp65-620ByumpSelect Medical Specialty Hospital - Cincinnati NorthComment on above:Performed By: #### CDP, CMPX, CRP, SED, GLYHGB ####[facility] HospitalSpottedMshseqsgdggn8882[address] [place] [address] Anion gap13 mmol/LNormal9-17[facility] Comment on above:Performed By: #### CDP, CMPX, CRP, SED, GLYHGB ####Gautamy Fbr[address]zw[address]uklm[address]144 [place] [address] Aspartate aminotransferase (AST)9 U/LNormal<40[facility] NorthComment on above:Performed By: #### CDP, CMPX, CRP, SED, GLYHGB ####[facility] Rocerduzfswg8378 [place] [address] Bilirubin Ql (U)0.26 mg/dLLow0.3-1.2MKaiser Martinez Medical CenterComment on above:Performed By: #### CDP, CMPX, CRP, SED, GLYHGB ####Audra [address]ys[address]zs[address] [place] [address] Calcium8.4 mg/dLLow8.6-10.4[facility] NorthComment on above: Performed By: #### CDP, CMPX, CRP, SED, GLYHGB ####[facility] Jbboreyucwut[address]991 [place] [address] Ddoihtyf78 mmol/OAfidyw14-366TtzxcSelect Medical Specialty Hospital - Cincinnati NorthComment on above:Performed By: #### CDP, CMPX, CRP, SED, GLYHGB ####[facility] Cvtotfrfafye6985 [place] [address] XM967 mmol/L Umwtuy29-53YhaebSelect Medical Specialty Hospital - Cincinnati NorthComment on above:Performed By: #### CDP, CMPX, CRP, SED, GLYHGB ####[facility] Ccxwfdkizftu6415 [place] [address] Zfddmgbqrt0.13 mg/dLNormal0.70-1.20[facility] NorthComment on above:Performed By: #### CDP, CMPX, CRP, SED, GLYHGB ####[facility] [address]vv[address] [place] [address] eGFR (non-black) mL/min/{1.73_m2}Normal>60[facility] NorthComment on above: Performed By: #### CDP, CMPX, CRP, SED, GLYHGB ####[facility] Guinpfhzhrom[address]275 [place] [address] Glucose mass mgtg429 mg/cKKjtd14-24VleqmKaiser Martinez Medical CenterComment on above:Performed By: #### CDP, CMPX, CRP, SED, GLYHGB ####[facility] Ddclrcoodvwq1432 [place] [address] Potassium molar conc4.3 mmol/LNormal3.7-5.3MKaiser Martinez Medical Center Comment on above:Performed By: #### CDP, CMPX, CRP, SED, GLYHGB ####[facility] [address]qu[address] [place] [address] Xmsnkbr0.0 g/dLNormal 6.4-8.3MKaiser Martinez Medical CenterComment on above:Performed By: #### CDP, CMPX, CRP, SED, GLYHGB ####[facility] [address]cgryet[address] [place] [address] Sodium133 mmol/WTsl700-962BzechSelect Medical Specialty Hospital - Cincinnati NorthComment on above:Performed By: #### CDP, CMPX, CRP, SED, GLYHGB ####[facility] [address] [place], [place] [address] Urea jivznvhq47 mg/dL High6-20[facility] NorthComment on above:Performed By: #### CDP, CMPX, CRP, SED, GLYHGB ####[employer] [address]rs[address]uf[address] [place] [address] BUN/CRE RatioNOT REPORTEDNormal9-20[facility] Comment on above:Performed By: #### CDP, CMPX, CRP, SED, GLYHGB ####Citizen[employer]VClowell Opuhpbqbakas[address] [place] [address] Staging:NOT REPORTED NormalSelect Medical Specialty Hospital - Cincinnati NorthComment on above:Performed By: #### CDP, CMPX, CRP, SED, GLYHGB ####Audra [address] [place] [address] Consulton [id number] IP Note OR TranscriptionNormalSelect Medical Specialty Hospital - [facility] NorthHI IP Note OR TranscriptionNormSelect Medical [facility] Clinic Rehabilitation Hospital, BeachwoodHI IP Note OR TranscriptionNoWood County Hospital Flu A/B Ag Detectionon [id number] A/B Ag DetectionSpecimen Description .NASOPHARYNGEAL SWABSpecial Requests NOT REPORTEDDirect Exam PRESUMPTIVE NEGATI VE for Influenza A + B antigens. PCR testing to confirm this result is available upon request. Specimen will be saved in the laboratory for 7 days. Please call [phone] if PCR testing is indicated. Report Status FINAL 04/09/2017[facility] Medical CenterComment on above:Performed By: #### CDP, CMPX, CRP, SED, GLYHGB ####Audra Ir[address]ndtkgqs[address] [place] [address] History and Physicalon [id number] IP Note OR TranscriptionMetrohealth Main Campus Medical CenterMRI FOOT RIGHT W WO CONTRASTon [id number] FOOT RIGHT W WO CONTRASTEXAMINATION:MRI OF THE [...] suspected despite a lack of definitive precontrast G6vpfmssev changes.Large ulcer overlying the lateral malleolus with underlying osteomyelitis.Interpreted by:SAMMI Tellezigned by:Jesusita Mock MD04/09/17inal resultNormalMerAlvarado Hospital Medical CenterOp Noteon [id number] IP Note OR TranscriptionNormal [facility] NorthPlan of Careon [id number] IP Note OR TranscriptionNormalMerAlvarado Hospital Medical CenterHI IP Note OR 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 [employer]ic NormalSelect Medical Specialty Hospital - Cincinnati NorthProgress Noteon [id number] IP Note OR TranscriptionNormalMerAlvarado Hospital Medical CenterHI IP Note OR [employer] 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 Mechanic NormalSelect Medical Specialty Hospital - Cincinnati NorthHI IP Note OR TranscriptionNormalSelect Medical Specialty Hospital - Cincinnati NorthRSV Ag Detectionon [id number] Ag DetectionSpecimen Description .NASOPHARYNGEAL SWABSpecial Requests NOT REPORTEDDirect Exam Presumptive negative for the presence of RSV antigen. PCR testing to confirm this result is available upon request. Specimen will be saved in the laboratory for 7 days. Please call [phone] if PCR testing is indicated. Report Status FINAL 04/09/2017[facility] Hamilton HospitalComment on above:Performed By: #### CDP, CMPX, CRP, SED, GLYHGB ####[facility] [place] [address] Sedimentation Rateon 18-10-0861Ffdrrlmfpnwij Rate80 mmHigh0-10[facility] NorthComment on above:Result Comment: [employer] [address] [place], [place] [id number] ([phone] Performed By: #### CDP, CMPX, CRP, SED, GLYHGB ####[employer] [address]vzmajyumvv[address]27 [place] [address] XR FOOT RIGHT STANDARDon 52-16-2235CX FOOT RIGHT STANDARDEXAMINATION:3 VIEWS OF THE RIGHT [...] more definitivecharacterization.Interpreted by:SAMMI Tellezigned by:Jesusita Mock MD04/09/17inal resultNormalMerAlvarado Hospital Medical Center Vital Signs Date TimeVital SignValuePerforming ButfqzlgkUgkvhvlz12-83-5134 10:45-0500Body nirunx418.34 cmFidel Abbott MD Work Phone: [facility]11-06-2025 10:45-0500 Body mass index (BMI) [Ratio]31.4 kg/m2Fidel Abbott MD Work Phone: [facility]11-06-2025 10:45-0500 Body zbmvdeopbef91.1 [degF]Fidel Abbott MD Work Phone: [facility]11-06-2025 10:45-0500 Body mwcpat766.05 kgFidel Abbott MD Work Phone: 1(715)623-[address] [place], [place] 3397211-06-2025 10:45-0500 Diastolic blood lekaxszf17 mm[Hg]Fidel Abbott MD Work Phone: 1(085)[address]11-06-2025 10:45-0500 Heart rate88 /minFidel Abbott MD Work Phone: 1(312)40523 [address]11-06-2025 10:45-0500 Respiratory rate20 /minFidel Abobtt MD Work Phone: 1(989)[address]23 [address]11-06-2025 10:45-0500 SaO2% (BldA) [Mass fraction]98 %Fidel Abbott MD Work Phone: 1(415)886[address]11-06-2025 10:45-0500 Systolic blood loafbeqc912 mm[Hg]Fidel Abbott MD Work Phone: 1(054)52323 [address]10-30-2025 13:19-0400 Body .34 cmFiedl Abbott MD Work Phone: 1(424)07523 [address]10-30-2025 13:19-0400 Body mass index (BMI) [Ratio]31.4 kg/m2Fidel Abbott MD Work Phone: 1(945)688-[address] [place], [place] 3397210-30-2025 13:19-0400 Body vmlnjqhjhbo77.5 [degF]Fidel Abbott MD Work Phone: 1(687)312-[address] [place], [place] 3397210-30-2025 13:19-0400 Body .05 kgFidel Abbott MD Work Phone: 1(801)86323 [address]10-30-2025 13:19-0400 Diastolic blood eaytzkpn48 mm[Hg]Fidel Abbott MD Work Phone: 1(597)929-[address] [place], [place] 3397210-30-2025 13:19-0400 Heart rate91 /minFidel Abbott MD Work Phone: 1(390)43323 [address]10-30-2025 13:19-0400 Systolic blood esjscxsi404 mm[Hg]Fidel Abbott MD Work Phone: 1(713)57523 [address]10-28-2025 11:59-0400 Body gmovso658.34 cmFidel Abbott MD Work Phone: 1(918)[address] [place], [place] 2787110-28-2025 11:59-0400 Body mass index (BMI) [Ratio]31.4 kg/m2Fidel Abbott MD Work Phone: 1(798)[address] [place], [place] 4441110-28-2025 11:59-0400 Body eybvyj970.05 kgFidel Abbott MD Work Phone: 1(819)[address] [place], [place] 2787110-28-2025 11:13-0400 Body revcmvigknl13.2 [degF]Fidel Abbott MD Work Phone: 1(451)[address] [place], [place] 4441110-28-2025 11:13-0400 Diastolic blood guxpxjhm08 mm[Hg]Fidel Abbott MD Work Phone: 1(492)[address] [place], [place] 2787110-28-2025 11:13-0400 Heart rate82 /Ceci Abbott MD Work Phone: 1(485)[address] [place], [place] 4441110-28-2025 11:13-0400 Systolic blood nutpndij654 mm[Hg]Fidel Abbott MD Work Phone: 1(594)[address] [place], [place] 2787107-15-2025 10:26-0400 Respiratory rate18 /Ceci Abbott MD Work Phone: 1(415)75023 [address]2025 13:45-0400 Diastolic blood mptvoavn25 mm[Hg]Fidel Abbott MD Work Phone: 1(373)34723 [address]2025 13:45-0400 Heart rate55 /Ceci Abbott MD Work Phone: 1(989)46323 [address]2025 13:45-0400 Respiratory rate16 /minFidel Abbott MD Work Phone: 1(646)14023 [address]2025 13:45-0400 SaO2% (BldA) [Mass fraction]97 %Fidel Abbott MD Work Phone: 1(308)730[address]2025 13:45-0400 Systolic blood iwcnnzqq586 mm[Hg]Fidel Abbott MD Work Phone: 1(968)[address] [place], [place] 4441107-07-2025 13:00-0400 Inhaled oxygen flow rate6 L/minFidel Abbott MD Work Phone: 1(570)[address] [place], [place] 4441107-07-2025 10:58-0400 Body pbljbo764.34 cmFidel Abbott MD Work Phone: 1(038)[address] [place], [place] 4441107-07-2025 10:58-0400 Body lfzxzvczusi77.4 [degF]Fidel Abbott MD Work Phone: 1(945)[address] [place], [place] 4441107-07-2025 10:58-0400 Body wissss946.05 kgFidel Abbott MD Work Phone: 1(017)[address] [place], [place] 4441106-04-2025 12:17-0400 Body uwqmwjbtkvo81.7 [degF]Fidel Abbott MD Work Phone: 1(094)[address] [place], [place] 4441106-04-2025 12:17-0400 Diastolic blood lxzosgpp98 mm[Hg]Fidel Abbott MD Work Phone: 1(256)[address] [place], [place] 4441106-04-2025 12:17-0400 Heart rate56 /minFidel Abbott MD Work Phone: 1(012)[address]06-04-2025 12:17-0400 SaO2% (BldA) [Mass fraction]97 %Fidel Abbott MD Work Phone: 1(035)[address] [place], [place] 2787106-04-2025 12:17-0400 Systolic blood mm[Hg]Fidel Abbott MD Work Phone: 1(242)186-[address] [place], [place] 3397205-20-2025 11:19-0400 Body fzytgn212.34 cmFidel Abbott MD Work Phone: 1(182)29923 [address]05-20-2025 11:19-0400 Body mass index (BMI) [Ratio]31.4 kg/m2Fidel Abbott MD Work Phone: 1(691)[address] [place], [place] 4441105-20-2025 11:19-0400 Body qakmcx316.05 kgFidel Abbott MD Work Phone: 1(672)[address]05-20-2025 10:28-0400 Body hhvaodhnaye04.1 [degF]Fidel Abbott MD Work Phone: 1(573)[address] [place], [place] 2787105-20-2025 10:28-0400 Diastolic blood lahbrvrb70 mm[Hg]Fidel Abbott MD Work Phone: 1(940)[address]05-20-2025 10:28-0400 Heart rate71 /minFidel Abbott MD Work Phone: 1(118)[address]05-20-2025 10:28-0400 Respiratory rate16 /minFidel Abbott MD Work Phone: 1(816)[address]05-20-2025 10:28-0400 Systolic blood xtgrcytj228 mm[Hg]Fidel Abbott MD Work Phone: 1(269)[address]05-05-2025 10:49-0400 Body kuddwt879.3 cmFidel Abbott MD Work Phone: [facility]43[facility]2769 10:49-0400Body temperature 97.5 [degF]Fidel Abbott MD Work Phone: [facility] SouthWsediomdau80-55-1094 10:49-0400Diastolic blood dgbhiwen94 mm[Hg]Fidel Abbott MD Work Phone: [facility] SouthTfbnoypbek98-61-2045 10:49-0400Heart rate57 /min Fidel Abbott MD Work Phone: 1(485)1859152[facility] SouthGsbjrtftnr24-32-1769 10:49-0400Respiratory rate18 /minFidel Abbott MD Work Phone: 1(476)[facility] SouthVwexbehiiq09-13-6685 10:49-3106WnI0% (BldA) [Mass fraction]98 %Fidel Abbott MD Work Phone: 1(928)[address] [place], [place] [address]C[facility] SouthYuluehaucf25-87-0736 10:49-0400Systolic blood mm[Hg]Fidel Abbott MD Work Phone: 1(851)[address] [place], [place] 5925812-17-2024 11:23-0500Body .34 cmFidel Abbott MD Work Phone: 1(211)[address] [place], [place] 4441112-17-2024 11:23-0500 Body mass index (BMI) [Ratio]31.4 kg/m2Fidel Abbott MD Work Phone: 1(194)[address] [place], [place] 4441112-17-2024 11:23-0500 Body .05 kgFidel Abbott MD Work Phone: 1(922)[address] [place], [place] 4441112-17-2024 10:50-0500 Body uauqgvfyrzu55.2 [degF]Fidel Abbott MD Work Phone: 1(802)[address] [place], [place] 4441112-17-2024 10:50-0500 Diastolic blood olhxmffs60 mm[Hg]Fidel Abbott MD Work Phone: 1(951)[address] [place], [place] 4441112-17-2024 10:50-0500 Heart rate61 /minFidel Abbott MD Work Phone: 1(412)[address] [place], [place] 4441112-17-2024 10:50-0500 Respiratory rate18 /minFidel Abbott MD Work Phone: 1(305)[address] [place], [place] 4441112-17-2024 10:50-0500 Systolic blood bhimlhhc165 mm[Hg]Fidel Abbott MD Work Phone: 1(815)[address] [place], [place] 4441111-12-2024 11:44-0500 Body emmmbv773.34 cmFidel Abbott MD Work Phone: 1(011)[address] [place], [place] 4441111-12-2024 11:44-0500 Body mass index (BMI) [Ratio]31.4 kg/m2Fidel Abbott MD Work Phone: 1(210)[address] [place], [place] 4441111-12-2024 11:44-0500 Body ozkwjw071.05 kgFidel Abbott MD Work Phone: 1(799)[address] [place], [place] 4441111-12-2024 10:51-0500 Body ipzvyppclos07.1 [degF]Fidel Abbott MD Work Phone: 1(510)[address] [place], [place] 4441111-12-2024 10:51-0500 Diastolic blood wysswbdb79 mm[Hg]Fidel Abbott MD Work Phone: 1(762)[address] [place], [place] 4441111-12-2024 10:51-0500 Heart rate64 /minFidel Abbott MD Work Phone: 1(364)[address] [place], [place] 4441111-12-2024 10:51-0500 Respiratory rate18 /minFidel Abbott MD Work Phone: 1(197)[address] [place], [place] 4441111-12-2024 10:51-0500 Systolic blood ncoodblw357 mm[Hg]Fidel Abbott MD Work Phone: 1(833)[address] [place], [place] 4441110-24-2024 11:52-0400 Body pfnxuv670.3 cmFidel Abbott MD Work Phone: 1(422)[address]653[address] [place], [place] [address]Ghrsiaiiyn48-92-5318 11:52-0400Body temperature 97.5 [degF]Fidel Abbott MD Work Phone: 1(960)118687[address] [place], [place] [address]Ckhirmpvdp92-38-6008 11:52-0400Diastolic blood enmkodlx95 mm[Hg]Fidel Abbott MD Work Phone: 1(225)0702081[facility] SouthEmyvftibuf20-79-0640 11:52-0400Heart rate57 /min Fidel Abbott MD Work Phone: 1(419)[address]10-24-2024 11:52-0400Respiratory rate20 /minFidel Abbott MD Work Phone: 1(407)8-2958[facility] SouthWpccobylyl29-33-8611 11:52-3394IfQ2% (BldA) [Mass fraction]99 %Fidel Abbott MD Work Phone: [facility] SouthIwrsrhagkv95-20-3365 11:52-0400Systolic blood amqkljmj312 mm[Hg]Fidel Abbott MD Work Phone: 1(431)[address] [place], [place] [address]Uklczrkffy52-43-9757 13:47-0400Body woevhi724.3 cmFidel Abbott MD Work Phone: 1(962)[address] [place], [place] 5925808-22-2024 13:47-0400Body temperature 97.5 [degF]Fidel Abbott MD Work Phone: 1(472)[address] [place], [place] [address]Bjutpfcfoh76-66-0221 13:47-0400Diastolic blood arjoibnn82 mm[Hg]Fidel Abbott MD Work Phone: 1(250)009[address] [place], [place] [address]Vgdestzlwm97-51-5054 13:47-0400Heart rate60 /min Fidel Abbott MD Work Phone: [facility] SouthCyznwqrsdg94-33-5671 13:47-0400Respiratory rate18 /minFidel Abbott MD Work Phone: [facility] SouthSdvovjmsfl88-24-0658 13:47-2287KuF8% (BldA) [Mass fraction]97 %Fidel Abbott MD Work Phone: 1(341)687-[address] [place], [place] [address]Hjbmtqfmcv80-21-7753 13:47-0400Systolic blood gzoggyqp653 mm[Hg]Fidel Abbott MD Work Phone: 1(631)9928796[facility] SouthLyicnyjvaf47-34-0329 13:27-0500Diastolic blood etrvewog88 mm[Hg]MD Fidel Abbott Work Phone: [facility]03-08-2024 13:27-0500 Heart rate60 /minMD Fidel Abbott Work Phone: 1(419)547-[address] [place], [place] 1282803-08-2024 13:27-0500 Respiratory rate12 /minMD Fidel Abbott Work Phone: 1(098)533-[facility]03-08-2024 13:27-0500 SaO2% (BldA) [Mass fraction]98 %MD Fidel Abbott Work Phone: 1(518)982-[facility]03-08-2024 13:27-0500 Systolic blood fqgnppem661 mm[Hg]MD Fidel Abbott Work Phone: 1(269)827-[address] [place], [place] 3397203-08-2024 10:49-0500 Body vhnzij239.34 cmMD Fidel Abbott Work Phone: 1(946)615-[address] [place], [place] 3397203-08-2024 10:49-0500 Body dtyruppiyap72 [degF]MD Fidel Abbott Work Phone: 1(906)698-[address] [place], [place] 3397203-08-2024 10:49-0500 Body .3 kgMD Fidel Abbott Work Phone: 1(069)204-[address] [place], [place] 3397202-08-2024 10:40-0500 Body esdqsl703.8 cmJonathan Brown DPM Work Phone: [facility] SouthEtojzqdgwy66-04-0507 10:40-0500Body mass index (BMI) [Ratio]35.87 kg/s9KafbdmplJontahan Moffett DPM Work Phone: [facility] SouthFgzktfwphn41-07-2903 10:40-0500Body .4 kgJonathan Moffett DPM Work Phone: [facility] SouthIlzgwmxjvf54-22-9425 10:40-0500Diastolic blood oghwvdor91 mm[Hg]Jonathan Moffett DPM Work Phone: [facility] SouthChkxrfgvri08-12-4715 10:40-0500Heart rate79 /min Jonathan Moffett DPM Work Phone: [facility] SouthKbnxnhmupn62-39-1652 10:40-0500Systolic blood eagqbehw589 mm[Hg]Jonathan Moffett DPM Work Phone: [facility] SouthXukyghumoa30-21-8649 13:06-0500Body mass index (BMI) [Ratio]34.8 kg/m2MD Fidel Abbott Work Phone: 1(312)888-[address] [place], [place] 3397202-06-2024 12:48-0500 Body .34 cmMD Fidel Abbott Work Phone: 1(590)[address]02-06-2024 12:48-0500 Body oaopco019.39 kgMD Fidel Abbott Work Phone: 1(749)19523 [address]02-06-2024 11:25-0500 Body lcvxuptxkja53.3 [degF]MD Fidel Abbott Work Phone: 1(528)[address]123 [address]02-06-2024 11:25-0500 Diastolic blood pppvoyyy06 mm[Hg]MD Fidel Abbott Work Phone: 1(517)67223 [address]02-06-2024 11:25-0500 Heart rate64 /minMD Fidel Abbott Work Phone: 1(961)186-[address] [place], [place] 3397202-06-2024 11:25-0500 Respiratory rate18 /minMD Fidel Abbott Work Phone: 1(613)[address]02-06-2024 11:25-0500 Systolic blood pssidejn320 mm[Hg]MD Fidel Abbott Work Phone: 1(595)042-[address] [place], [place] 3397208-14-2023 13:10-0400 Blood Pressure LocationPakasia VILLA [facility]08-14-2023 13:10-0400Diastolic blood niclrhbp99 mm[Hg]Jovanny VILLA [facility]08-14-2023 13:10-0400Heart rate78 /minJovanny VILLA [facility]08-14-2023 13:10-0400Systolic blood mm[Hg]Jovanny VILLA [facility]03-31-2023 14:00-0400Body vwnffjnllmo64.81 [degF]Eli Pimentel MD Work Phone: bON [facility]03-31-2023 14:00-0400Diastolic blood ydywkbny23 mm[Hg]Eli Pimentel MD Work Phone: [facility]-31-2023 14:00-0400Heart rate70 /minEli Pimentel MD Work Phone: [facility]03-31-2023 14:00-0400 Respiratory rate18 /minEli Pimentel MD Work Phone: [facility]03-31-2023 14:00-1602BoZ2% (BldA) [Mass fraction]95 %Eli Pimentel MD Work Phone: O[facility]03-31-2023 14:00-0400Systolic blood bpxybsbw359 mm[Hg]Eli Pimentel MD Work Phone: [facility]03-31-2023 05:30-0400Body mass index (BMI) [Ratio]34.28 kg/e8RahjbsqEli Pimentel MD Work Phone: [facility]03-31-2023 05:30-0400Body .49 kgEli Pimentel MD Work Phone: 1([phone]03-30-2023 04:54-0400Body .3 cmEli Pimentel MD Work Phone: [facility]03-07-2023 12:14-0500Body fguwpf982.72 cmMD Fidel Abbott Work Phone: [facility]03-07-2023 12:14-0500 Body mass index (BMI) [Ratio]41 kg/m2MD Fidel Abbott Work Phone: 1(419)[address] [place], [place] 4441103-07-2023 12:14-0500 Body fmdoak175.46 kgMD Fidel Abbott Work Phone: 1(297)[address] [place], [place] 4441103-07-2023 09:52-0500 Body bwstttgshyr24 [degF]MD Fidel Abbott Work Phone: 1(432)[address] [place], [place] 4441103-07-2023 09:52-0500 Diastolic blood dftlodzq34 mm[Hg]MD Fidel Abbott Work Phone: 1(833)[address] [place], [place] 4441103-07-2023 09:52-0500 Heart rate76 /minMD Fidel Abbott Work Phone: 1(159)[address] [place], [place] 4441103-07-2023 09:52-0500 Systolic blood nflgpuka694 mm[Hg]MD Fidel Abbott Work Phone: 1(169)[address] [place], [place] 4441112-06-2022 12:06-0500 Body arausb174.34 cmMD Fidel Abbott Work Phone: 1(036)[address] [place], [place] 4441112-06-2022 12:06-0500 Body mass index (BMI) [Ratio]34.8 kg/m2MD Fidel Abbott Work Phone: 1(123)[address] [place], [place] 4441112-06-2022 12:06-0500 Body rywepg956.39 kgMD Fidel Abbott Work Phone: 1(597)[address] [place], [place] 4441112-06-2022 11:37-0500 Body modemncknnh77.7 [degF]MD Fidel Abbott Work Phone: 1(023)[address] [place], [place] 4441112-06-2022 11:37-0500 Diastolic blood fmndywoc93 mm[Hg]MD Fidel Abbott Work Phone: 1(852)[address] [place], [place] 4441112-06-2022 11:37-0500 Heart rate68 /minMD Fidel Abbott Work Phone: 1(840)[address] [place], [place] 4441112-06-2022 11:37-0500 Respiratory rate18 /minMD Fidel Abbott Work Phone: [facility]12-06-2022 11:37-0500 Systolic blood axkdkggk750 mm[Hg]MD Fidel Abbott Work Phone: [facility] Encounters Encounter DateEncounter TypeCare ProviderFacilityStart: 21-61-3425lopboelvpl Jovanny Bustoscility:CD:[id number]: 02-01-2025 End: 75-92-6516ixazxauymhXohq Naderer MD Work Phone: -[facility] ClydeStart: 02-01-2025 End: 78-52-2243Ydumuty encounter procedureFidel Abbott MD-[facility] [place] Work Phone: Start: 01-25-2025 End: 82-79-9115wwzwguxacsGybu Naderer MD Work Phone: [phone]-Lqwyjucxq Health Infect DisStart: 01-25-2025 End: 19-88-5557Aqaytjl encounter procedureMiclori Morelos MD-[facility] Work Phone: Start: 80-81-1119hetveomkyxDhbmsf Vargas [facility]art: 96-01-0537Umwmtlxrjs Recurring Cathy Brar MD-[facility] [place] Work Phone: Start: 01-15-2025 End: 43-16-4682tvzcnkkefdPeqzqpm R WATERSFacility:EU BellevueStart: 01-15-2025 End: 62-70-9004Nklgxgz encounter procedureJovanny VILLA [facility] start: 89-57-7109Owa-patient / Non-visitPeter Shruti ZENDEJAS MS-[facility] Work Phone: Start: 48-91-7954Cgr-patient / Non-visitApcindy River MD-[facility] Work Phone: Start: 11-22-2024 End: 82-67-8387EspcxzXmeq Naderer MD Work Phone: noms CWM FMComment on above:Primary hypertension ; Benign hypertension ; Type 2 diabetes mellitus with hyperglycemia, without long-term current use of insulin (HCC); DyslipidemiaStart: 11-01-2024 End: 28-55-2533OquefpOdav Naderer MD Work Phone: [facility] CWM FMComment on above:Type 2 diabetes mellitus with hyperglycemia, without long-term current use of insulin (HCC)Start: 10-02-2024 End: 85-70-6842Jxgyskur Result EncounterCathy Brar MD Work Phone: noms External Department UnsolicitedStart: 10-02-2024 End: 61-62-0214Vnuhvmhm Result Mulu Edwards MD Work Phone: noms External Department UnsolicitedStart: 10-02-2024 End: 61-56-1934Htxrtjxnk to same day surgery prociousCathy Brar MD-[facility] InstituteStart: 10-02-2024 End: 34-18-7100alqbdtumkkLeic Naderer MD Work Phone: [facility] Work Phone: Start: 09-26-2024 End: 35-89-7811Nnamyfpvz Result EncounterGeneric External Data ProviderNOMS External Department UnsolicitedStart: 09-26-2024 End: 29-01-5561Caaqcbrrw Result EncounterGeneric External Data ProviderNOMS External Department UnsolicitedStart: 09-11-2024 End: 33-48-0123Biazaynke Result EncounterGeneric External Data ProviderNOMS External Department UnsolicitedStart: 09-11-2024 End: 17-14-8234Ssgjjkzgs Result EncounterGeneric External Data ProviderNOMS External Department UnsolicitedStart: 08-30-2024 End: 54-07-5040Elsdxja encounter Jagruti Abbott MD Work Phone: [facility] Work Phone: Start: 08-30-2024 End: 16-59-5279nokzllejppYrcf Naderer MD Work Phone: [facility] Work Phone: Start: 64-09-4888Smgozxjdcz Geri Abbott MD Work Phone: [facility] [place] Work Phone: Start: 08-10-2024 End: 04-74-2394Osgsjlrpf Result EncounterGeneric External Data ProviderNOMS External Department UnsolicitedStart: 08-10-2024 End: 13-14-9498Msyjgolfg Result EncounterGeneric External Data ProviderNOMS External Department UnsolicitedStart: 07-31-2024 End: 73-91-0162Xjpdbg Silverio Abbott MD Work Phone: n[facility] CWM FMStart: 07-31-2024 End: 25-54-4851Alzzom Silverio Abbott MD Work Phone: noms CW FMStart: 07-31-2024 End: 40-15-6121Wfnwxn outpatient visit 25 minutesFidel Abbott MD Work [...] due to underlying condition with diabetic polyneuropathy ([facility])Start: 07-31-2024 End: 33-48-2470Fgipqmk encounter Jagruti Abbott MD Work Phone: noms HealthcareStart: 07-31-2024 End: 53-53-4529dswydoyaobGGMC NADERERNot AvailableStart: 05-30-2024 End: 19-86-1193Hdronxsiv Result EncounterGeneric External Data ProviderNOMS External Department UnsolicitedStart: 05-30-2024 End: 07-04-7873Anbszakdj Result EncounterGeneric External Data ProviderNOMS External Department UnsolicitedStart: 11-23-3170kwswffdxjnIKJFUTWL E WESTLEY Facility:[facility]: 04-17-2024 End: 67-88-8772Svvxkpcjf encounterScanning Provider ExternalN [facility] ToledoStart: 04-14-2024 End: 85-72-5888Btlhoopzs encounterBrooke Dalila [facility] CenteredoStart: 04-06-2024 End: 87-60-9903Ysjedzaeg encounterBrooke Dalila [facility]: 03-14-2024 End: 08-11-1597kvdfpfkuwpXkqm Naderer MD Work Phone: [facility] Work Phone: Start: 03-14-2024 End: 20-55-3084Occbqfpcro RecurringFidel Abbott MD Work Phone: [facility] [place] Work Phone: Start: 03-13-2024 End: 01-22-6751UsruksKnwh Naderer MD Work Phone: noms CWM FMComment on above:PruritusStart: 03-10-2024 Non-patient / Non-visitFidel Abbott MD Work Phone: [facility] Work Phone: Start: 03-10-2024 End: 25-76-1583Tmnojykgk Result EncounterGeneric External Data ProviderNOMS External Department UnsolicitedStart: 03-10-2024 End: 37-32-3139Kugqwadub Result EncounterGeneric External Data ProviderNOMS External Department UnsolicitedStart: 03-06-2024 End: 00-24-2577Qocjkxnug Result EncounterGeneric External Data ProviderNOMS External Department UnsolicitedStart: 03-06-2024 End: 18-61-4954Ahlitacwi Result EncounterGeneric External Data ProviderNOMS External Department UnsolicitedStart: 02-14-2024 End: 42-89-7721Yxmhecykp Result EncounterGeneric External Data ProviderNOMS External Department UnsolicitedStart: 02-14-2024 End: 83-59-7185Jthyahyii Result EncounterGeneric External Data ProviderNOMS External Department UnsolicitedStart: 60-82-1620Mxllmvjqzc Geri Abbott MD Work Phone: [facility] [place] Work Phone: Start: 02-08-2024 End: 41-63-7044Uqwrhxk encounter procedureFidel Abbott MD Work Phone: [facility]-Lab Main [place] Work Phone: Start: 02-08-2024 End: 30-12-0022jjishdkowrHcnt Naderer MD Work Phone: [facility] Work Phone: Start: 01-20-2024 End: 52-85-3758Bufzzj flowsJane Abbott MD Work Phone: [facility] CWM FMStart: 01-20-2024 End: 25-57-0714Hjqasn flowsJane Abbott MD Work Phone: [facility] CWM FMStart: 01-20-2024 End: 69-53-1583Suvptv outpatient visit 15 minutesFidel Abbott MD Work Phone: n[facility] CWM FMComment on above:Urticaria (Primary Dx) Start: 01-20-2024 End: 97-71-4272roykuikezoBPVH NADERERNot AvailableStart: 01-17-2024 End: 46-49-4282Zjquhi Ursula Valdivia MD Work Phone: [facility] Comment on above:Stage 3a chronic kidney disease (CMS-HCC) (Primary Dx)Start: 01-12-2024 End: 60-49-1878Uynqesffd encounterScanning Provider ExternalPHN [facility] HospitaloStart: 12-02-2023 End: 54-73-6239Mtfrpcbjf Result EncounterGeneric External Data ProviderNOMS External Department UnsolicitedStart: 12-02-2023 End: 63-42-5004Rbcadewbq Result EncounterGeneric External Data ProviderNOMS External Department UnsolicitedStart: 11-18-2023 End: 26-49-7020Tqvwsy outpatient visit 25 minutesFidel Abbott MD Work Phone: n[facility] CWM FMComment on above:Type 2 diabetes mellitus with hyperglycemia, without long-term current use of insulin (CMS/HCC) (Primary Dx); Benign hypertension (CMS/HCC); Major depressive disorder, recurrent episode, mild (HCC) (CMS/HCC); Incontinence overflow, urine; Pruritus; Chronic kidney disease, stage 3a (HCC) (CMS/HCC); Encounter for long-term (current) use of medications; Cauda equina syndrome (CMS/HCC)Start: 11-18-2023 End: 79-76-9699ikwdkozfaxZBEQ NADERERNot AvailableStart: 11-12-2023 End: 81-47-7452Psvgepe encounter procedureJovanny VILLA [facility] start: 10-11-2023 End: 14-89-9304cvdzasovnuBmyfw CervantesProMedica Mercy Medical Centertart: 07-08-2023 End: 02-54-9687erkdzknurjWL Fidel Abbott Work Phone: [facility] Work Phone: Start: 07-08-2023 End: 82-39-9016Salfzgij ReferredMD Fidel Abbott Work Phone: [facility] [place] [facility]Start: 06-04-2023 End: 45-20-7989Pftygwffm to same day surgery centerRI Fidel Abbott Work Phone: [facility]Start: 05-18-2023 End: 13-97-8569Okbynfctb Result EncounterGeneric External Data ProviderNOMS External Department UnsolicitedStart: 05-18-2023 End: 59-28-2003Tvtrqcocb Result EncounterGeneric External Data ProviderNOMS External Department UnsolicitedStart: 77-41-6305Lacpeoumo encounterSandhya FRANCOMS NMA PODComment on above:PrescriptionStart: 51-57-7617Vqwem abstractingJonathan Moffett DPM Work Phone: noMS CI PODIATRYStart: 05-06-2023 End: 32-95-2193Hyebic outpatient visit 25 minutesJonathan Moffett DPM Work Phone: noms CI PODIATRYComment on above:Cellulitis of left foot (Primary Dx); Ulcer of left ankle, with necrosis of bone (HCC) (CMS/HCC); Diabetes mellitus due to underlying condition with diabetic polyneuropathy, unspecified whether termite inspector insulin use (CMS/HCC); Acute complete paraplegia (CMS/HCC); Acute osteomyelitis of left fibula (CMS/HCC); Foot ulcer, right, with fat layer exposed (CMS/HCC); Venous insufficiencyStart: 05-04-2023 End: 59-10-8228kqzniqbnndVK Fidel Abbott Work Phone: [facility] Work Phone: Start: 05-04-2023 End: 60-62-7712Rkknnoqaya RecurringMD Fidel Aguirreerer Work Phone: [facility] Work Phone: Start: 11-09-2022 End: 65-21-5822Wrhliux encounter procedurePagregwillam VILLA [facility] start: 09-25-2022 End: 51-32-2499rgufadzrafNHPQJamie Awad [facility] HospitalStart: 09-18-2022 End: 47-77-5617otzntcjoglKRBCMUO W PARSELLMercy Albion HospitalStart: 09-18-2022 End: 48-89-9882Mvywjquxhb hospital [facility] by physicianG[facility] UltrasoundComment on above:Cauda equina syndrome (HCC); Neurogenic bladder; Urinary retention; Urinary incontinence without sensory awarenessStart: 2022 End: 63-88-2959pofbtmgxhsOAYGSU ZACIEWSKIMercy [facility] HospitalStart: 07-02-2022 End: 79-18-6749tcqzohusbjEOZSUQNSHELLY Campos [facility] HospitalStart: 07-02-2022 End: 90-92-7824Dbknywhsot hospital visit by Mike Abbott MD Work Phone: mthz LaboratoryComment on above:Acute kidney injury (HCC); Iron deficiency anemia, unspecified iron deficiency anemia typeStart: 06-22-2022 End: 63-82-2680Pjnqrxioar and management of inpatientSLUCIO Montero [facility] HospitalStart: 06-22-2022 End: 56-54-1632Phhnqcmlcb and management of inpatientEli Pimentel MD Work Phone: mthz [facility] MED SURGComment on above:Acute kidney injury (HCC) (Primary Dx); Hyperkalemia; Iron deficiency anemia, unspecified iron deficiency anemia typeStart: 06-22-2022 End: 33-72-1096xycqbrlgveBLIKZY ZACIEWSKIMercy [facility] HospitalStart: 06-22-2022 End: 53-50-0744Davugnhesw hospital visit by Mike Abbott MD Work Phone: mthz EKGComment on above:Neurogenic bladderStart: 06-02-2022 End: 01-72-3684nnxwdhalvxWL Fidel Abbott Work Phone: [facility] Work Phone: Start: 06-02-2022 End: 21-92-8230Khfjnwupza RecurringMD Fidel Abbott Work Phone: [facility] [place] Work Phone: Start: 03-14-2022 End: 78-43-6320dofylmtumhEP ALBERT V VARGASFacility:D6Ajzuq: 03-03-2022 End: 17-17-5494knkujdaaniNC Marc Naderer Work Phone: [facility] Work Phone: Start: 03-03-2022 End: 19-13-6155Elnhxegggd RecurringMD Fidel Abbott Work Phone: [facility] [place] Work Phone: Start: 02-26-2022 End: 11-41-0791jbopifobgcQU ALBERT V VARGASFacility:B7Fbvwx: 05-30-2021 End: 47-97-5289icosquvvroGL FIDEL Geoff ANTHONYRFacility:V2Mwwxe: 04-09-2017 End: 74-79-4356Qdvwepgvjh and management of inpatientSUSIE [facility] Procedures DateProcedureProcedure DetailPerforming ClinicianStart: 58-82-3795ZKEKPMI POCT GLUCOMETERSCathy Brar MD Work Phone: Start: 50-03-6720LIRQKKX Kristina Brar MD Work Phone: Start: 91-21-8393JLPESAWDD Kristina Brar MD Work Phone: Start: 19-55-1702RemmgwjmgxnUpuf Naderer MD Work Phone: Start: 27-82-1912VUMKUJL POCT GLUCOMETERSCathy Brar MD Work Phone: Start: 61-07-1427LDD CBC WITH AUTO DIFFGeneric External Data ProviderStart: 48-65-9769NOR CBC WITH AUTO DIFFGeneric External Data ProviderStart: 06-18-2648KYI CBC WITH AUTO DIFFGeneric External Data ProviderStart: 49-65-8861ZRZ CBC WITH AUTO DIFFGeneric External Data Provider Start: 82-25-2068NCD CBC WITH AUTO DIFFGeneric External Data ProviderStart: 92-92-6709MDX 12-LEADGeneric External Data ProviderStart: 08-73-6291YQZWYRVUU BLOOD PRESSUREGeneric External Data ProviderStart: 60-19-6149LLQ SED RATEGeneric External Data ProviderStart: 12-73-6528XMJ CBC WITH AUTO DIFFGeneric External Data ProviderStart: 81-05-8154Ohiolscsdwurk of transfusion reactionMD Fidel Abbott Work Phone: Start: 05-05-1003MaqqifqslcmLK Fidel Abbott Work Phone: Start: 21-43-6520XX ANKLE LT WO CONGeneric External Data ProviderStart: 89-37-8546Mxhhuyknqnnohpjsq with dilation of urethral stricturePatrick VILLA Start: 91-94-4055Tq retroperitoneal real time w/image completeBethany W Mirna B[employer] FILLER - [employer] Work Phone: Start: 68-36-4574Yzjepyv urethrotomyPatrick VILLA Start: 69-08-9780Diuulxh urethrotomyPatrick VILLA Start: 66-14-7791Okyzu metabolic panel calcium total Shelly Mondragon [employer] Work Phone: Start: 06-26-2022 End: 00-86-1159MDJGSUMWQJN POLYPECTOMY SNARE/COLD BIOPSYKaterina Atkins MD Work Phone: Start: 06-26-2022 End: 10-37-6879Gjryeumltvoga intra/transmural needle aspirat/bxKaterina Atkins MD Work Phone: Start: 06-26-2022 End: 18-37-1138IirygmwpqlsXueoga N Chidi MD Work Phone: Start: 15-85-2893IgqgfqplrhaumvrlhfpjoxcbxfEjtqfy N Chidi MD Work Phone: Start: 72-46-4391ZXZSFJN, WHOLE BLOODStefscott Garcia MD Work Phone: Start: 38-70-8248Ebmtz count complete auto&auto difrntl wbcKaterina Atkins MD Work Phone: Start: 80-87-9090Kaxnxx ecg 1-3 leads w/interpretation & reportUnknown Provider ResultStart: 67-95-7610Nytnb occult peroxidase actv qual feces 1 deterShelly Mondragon B[employer] F[employer] Work Phone: Start: 15-65-0626Bxk bact xcpt urine blood/stool aerobic isolJohn W Mechelle DPM Work Phone: start: 50-32-8985Gxwat count complete auto&auto difrntl wbcKaterina Atkins MD Work Phone: Start: 06-25-2022 End: 52-13-4236Yubzpz ecg 1-3 leads w/interpretation & reportUnknown Provider ResultStart: 68-10-4559Oaucglnw Jose Pimentel MD Work Phone: start: 04-45-1540Othtq of troponin Saida Villafuerte PA-C Work Phone: Start: 06-24-2022 End: 15-22-9476Hhuieghrwad of packed red blood cellsShelly Mondragon B[employer] F[employer] Work Phone: Start: 59-26-2889Xuqn tthrc r-t 2d w/wom-mode compl spec&colr dShigarth MoralesSaint [facility] Institute - [facility] Work Phone: Start: 04-67-7658Aiixa typing serologic aboShelly MoralesSaint Luke Institute [facility] Work Phone: Start: 29-99-4133PRWWRAI, WHOLE BLOODStefscott Garcia MD Work Phone: Start: 06-24-2022 End: 59-15-8288Dvbbwrhpnml timeShigarth Tellez AndrewMt. Washington Pediatric Hospital Work Phone: Start: 84-40-2558JVPCEMP B12 & FOLATEShyonatan MoralesWestern [facility] Work Phone: Start: 06-24-2022 End: 60-22-2177Dnkhjg ecg 1-3 leads w/interpretation & reportUnknown Provider ResultStart: 06-23-2022 End: 70-02-6226Sllja of troponin quantitativeZoila Villafuerte PA-C Work Phone: Start: 85-75-7068Lemrfe ecg 1-3 leads w/interpretation & reportUnknown Provider ResultStart: 06-23-2022 End: 51-47-7443Vrw routine ecg w/least 12 lds i&r Carlito Villafuerte PA-C Work Phone: Start: 30-24-5733JYLPZKY, WHOLE BLOODMatias Garcia MD Work Phone: Start: 18-75-2122Yzzwr ankle complete minimum 3 views Shelly Geoff MoralesMt. Washington Pediatric Hospital Work Phone: Start: 26-79-1852Nracl panelZoila Villafuerte PA-C Work Phone: Start: 11-25-2263Mjmcu dip stick/tablet rgnt auto w/o microscopyEli Pimentel MD Work Phone: start: 41-41-7888Kxy bact xcpt urine blood/stool aerobic isolStefscott Garcia MD Work Phone: Start: 94-18-9390Vus routine ecg w/least 12 lds i&r onlyEli Pimentel MD Work Phone: start: 40-04-9348Iltazmenlunme metabolic panelEli Pimentel MD Work Phone: start: 72-25-8689Ism routine ecg w/least 12 lds w/i&r Angeles Nagy MD Work Phone: Start: 24-26-7852Wgksa metabolic panel calcium total Angeles Nagy MD Work Phone: Start: 41-71-0038PZFC GLUCOSESUSIE KIMStart: 67-04-7231GWJER METABOLIC PANELSUSIE KIMStart: 49-68-7493NQX WITH AUTO DIFFERENTIALSUSIE KIMStart: 69-61-4037QQF GLUCOSE FINGERSTICKSUSIE KIMStart: 68-95-4508SSUSYDPTM PATIENTSUSIE KIMStart: 55-70-5226TKGA GLUCOSESUSIE KIMStart: 99-76-5643SNK GLUCOSE FINGERSTICKSUSIE KIMStart: 88-40-0853ZCORDGRR REMOVAL MICHAELA KIMStart: 12-86-7139EGPH GLUCOSESUSIE KIMStart: 25-29-9756NJKY BIPAP OR CPAPSUSIE KIMStart: 63-20-7666YWZDRIVR OXYGEN THERAPY PROTOCOLSUSIE KIMStart: 65-13-2003TFY GLUCOSE FINGERSTICKSUSIE KIMStart: 13-17-7745NJNGK METABOLIC PANEL MICHAELA KIMStart: 75-95-4133TZS WITH AUTO DIFFERENTIALSUSIE KIMStart: 04-13-2017 POCT GLUCOSESUSIE KIMStart: 83-82-6561LEMRRD AND OUTPUTSUSIE KIMStart: 16-40-1452PJW GLUCOSE FINGERSTICKSUSIE KIMStart: 45-13-6588VHCY GLUCOSESUSIE WEST[place] Start: 56-19-1806OSW GLUCOSE FINGERSTICKSUSIE KIMStart: 59-10-0928SDMX GLUCOSE MICHAELA KIMStart: 62-77-3017DBR GLUCOSE FINGERSTICKSUSIE KIMStart: 60-86-5071SN EVAL AND TREATSUSIE KIMStart: 80-31-6532BX EVAL AND TREATSUSIE KIMStart: 51-94-6638NO CONSULT TO IV TEAMSUSIE KIMStart: 58-42-6565OGKZ GLUCOSESUSIE WESTON Start: 65-23-3782SGKL BIPAP OR CPAPSUSIE KIMStart: 41-45-7656LNJFDPOD OXYGEN THERAPY PROTOCOLSUSIE KIMStart: 13-69-4624VWTXR METABOLIC PANELSUSIE KIMStart: 53-65-5387LRO WITH AUTO DIFFERENTIALSUSIE KIMStart: 88-64-0578VRR GLUCOSE FINGERSTICKSUSIE KIMStart: 79-21-7933FYDF GLUCOSESUSIE KIMStart: 04-12-2017 INTAKE AND OUTPUTSUSIE KIMStart: 27-16-0100GVB GLUCOSE FINGERSTICKSUSIE WESTON Start: 98-41-2648GCAN GLUCOSESUSIE KIMStart: 73-47-8399WVB GLUCOSE FINGERSTICK MICHAELA KIMStart: 94-47-9146TAS GLUCOSE FINGERSTICKSUSIE KIMStart: 01-99-5244ROTY GLUCOSESUSIE KIMStart: 73-64-2753OKA GLUCOSE FINGERSTICKSUSIE KIMStart: 67-18-4834SMTT GLUCOSESUSIE KIMStart: 34-57-7972PVJI BIPAP OR CPAPSUSIE WESTON Start: 13-86-5535OMXQQTRY OXYGEN THERAPY PROTOCOLSUSIE KIMStart: 38-68-7939ASHTI METABOLIC PANELSUSIE KIMStart: 62-44-4762E-reactive proteinSUSIE KIMStart: 64-39-6176OUD WITH AUTO DIFFERENTIALSUSIE KIMStart: 51-58-3683KBMI GLUCOSESUSIE KIMStart: 34-65-9356NCJPNO AND OUTPUTSUSIE KIMStart: 95-46-8990DSOZBBEW REMOVAL MICHAELA KIMStart: 00-62-9669KRLXXS ROWE CATHETERSUSIE KIMStart: 92-50-0927VREX GLUCOSESUSIE KIMStart: 31-13-6528VRK GLUCOSE FINGERSTICKSUSIE KIMStart: 03-65-7807DVV GLUCOSE FINGERSTICKSUSIE KIMStart: 15-88-3846EVUKJQIDHBAZT NURSING CARE ORDER (SPECIFY)MICHAELA KIMStart: 14-21-2669SHI GLUCOSE FINGERSTICKSUSIE WESTON Start: 22-30-6474FIEYKEZR PATIENTSUSIE KIMStart: 18-57-2374QYVTUMNYH AND AEROBIC CULTURESUSIE KIMStart: 50-16-6551EXG 12-LEADSUSIE KIMStart: 89-40-1458QIZH GLUCOSESUSIE KIMStart: 93-77-5175QIW GLUCOSE FINGERSTICKSUSIE KIMStart: 75-89-5128TH ARTERIAL PVR LOWER WO EXERCISESUSIE KIMStart: 31-27-9332VLR GLUCOSE FINGERSTICKSUSIE KIMStart: 03-66-3068XE CONSULT TO VASCULAR SURGERYSUSIE WESTON Start: 44-36-0618AXAK GLUCOSESUSIE KIMStart: 68-91-6747HXCQ BIPAP OR CPAPSUSIE KIMStart: 45-24-9731XCAQMFYC OXYGEN THERAPY PROTOCOLSUSIE KIMStart: 04-10-2017 POCT GLUCOSESUSIE KIMStart: 60-74-4627MITTOD AND OUTPUTSUSIE KIMStart: 11-92-2910DLS GLUCOSE FINGERSTICKSUSIE KIMStart: 56-50-3982Qmzbv ankle complete minimum 3 viewsSUSIE KIMStart: 08-48-4725VQZJO LEG/FOOT BOOTSUSIE KIMStart: 22-71-4219Lhhrh foot complete minimum 3 viewsSUSIE KIMStart: 28-57-1753CZUQ GLUCOSESUSIE KIMStart: 69-49-7912Ajn lower extrem oth/thn jt w/o & w/contr matr MICHAELA ONTIVEROSStart: 41-81-1401ORRECGKTD A + B, PCRSUSIE KIMStart: 67-11-8251WGWOE INFLUENZA A/B ANTIGENSSUSIE KIMStart: 27-13-6036OEK RAPID ANTIGENSUSIE KIMStart: 35-28-9299RAHC CARB CONTROLSUSIE KIMStart: 70-27-7693MPDWIIU NUTRITION SUPPLEMENTSSUSIE KIMStart: 08-05-2512EZXSJNVQTNMHV NURSING CARE ORDER (SPECIFY) MICHAELA ONTIVEROSStart: 57-28-9460MOARBGI WOUND DRAINAGESUSIE KIMStart: 11-66-0453GF CONSULT TO PODIATRYSUSIE KIMStart: 39-60-6734LRJR GLUCOSESUSIE KIMStart: 70-90-1456ZTC GLUCOSE FINGERSTICKSUSIE KIMStart: 01-26-3967J-reactive protein MICHAELA ONTIVEROSStart: 23-12-6382IEA WITH AUTO DIFFERENTIALSUSIE KIMStart: 04-09-2017 COMPREHENSIVE METABOLIC PANEL W/ REFLEX TO MG FOR LOW KSUSIE KIMStart: 96-16-4413WAKLMAVBUV T7HHZWNP KIMStart: 98-22-5034UFXLKJGRNWYLR RATESUSIE WESTON Start: 83-10-6364MSWKC OSTOMY EVAL AND TREATSUSIE KIMStart: 73-24-3278MHDNNDX, URINE CATHETERSUSIE KIMStart: 08-43-7784PGHP GLUCOSESUSIE KIMStart: 04-09-2017 HOME BIPAP OR CPAPSUSIE KIMStart: 45-70-8584DOFKXDHH OXYGEN THERAPY PROTOCOL MICHAELA ONTIVEROSStart: 33-07-1488JAD GLUCOSE FINGERSTICKSUSIE KIMStart: 79-77-8873MTVF GLUCOSESUSIE KIMStart: 21-07-2299TWPRZBU HEELS OFF OF BEDSUSIE KIMStart: 03-88-3469AMDA OF BED 60 DEGREES OR LESSSUSIE KIMStart: 36-37-2118PRAVWWT COMMUNICATIONSUSIE KIMStart: 12-05-0652RKMD PATIENTSUSIE KIMStart: 04-09-2017 CATHETER REMOVALSUSIE KIMStart: 89-60-8713IAOG BIPAP OR CPAPSUSIE KIMStart: 63-93-3407SMCEEI ROWE CATHETERSUSIE KIMStart: 20-66-2503EEJ GLUCOSE FINGERSTICK MICHAELA KIMStart: 35-85-8304KUAWI WEIGHTSSUSIE KIMStart: 33-62-9234TNUG STAINSUSIE KIMStart: 51-07-4174EZIGFY AND OUTPUTSUSIE KIMStart: 19-97-0144DP CONSULT TO INFECTIOUS DISEASESSUSIE KIMStart: 73-08-1275KIEEG CULTURESUSIE KIMStart: 19-68-6008OHPUVVE ISOLATIONSUSIE KIMStart: 33-45-4381HUSIETF EXTREMITYSUSIE WESTON Start: 27-65-3712MRKU CODESUSIE KIMStart: 00-30-5953QTSLKDAD OXYGEN THERAPY PROTOCOLSUSIE KIMStart: 50-22-2037SUOZUO PHYSICIAN (SPECIFY)MICHAELA WESTONStart: 60-65-0079XENPUK FOR NO MECHANICAL VTE PROPHYLAXISSUSILuciana art: 04-09-2017 VITAL SIGNSSUSILuciana [facility]: 88-08-4442OZWDEZR STATUS (DIRECT)MICHAELA ONTIVEROSAppendix structure (body structure)Jovanny VILLA Back structure, excluding neck (body structure)Jovanny VILLA CystoscopyPabreckinridge memorial hospitalk VILLA History of appendectomyPatrick VILLA Insertion of inferior vena caval filterPaLavante Urodynamic studiesPaLavante Plan of Treatment DateCare ActivityDetailAuthorStart: 03-69-4871Lipaycjlb for malignant neoplasm of colonBON [facility]ENTERStart: 02-01-2025 End: 82-81-0393Onfozru encounter xorrjluck14/06/2025 10:30 AM EST [facility] [address] [place] [address] Fidel Abbott MD [address] [place] [address] [facility] FMStart: 08-29-0407VxmzxsmozCumberland HospitalStart: 72-97-1984Yaewf BMI ScreeningAdult BMI ScreeningSt. Vincent Hospital SystemStart: 90-11-8162Bvjqxgv ScreeningTobacco ScreeningCritical access hospitaltart: 28-59-7597Kqffkld CultureAerobic CultureUniversity Hospitals Ahuja Medical Centertart: 16-22-8051Oipjpbmby CultureAnaerobic [facility] Start: 64-34-8773Dfpiwrtdhgx observation [Identifier] in Unspecified specimen by Gram stainUniversity Hospitals Ahuja Medical Centertart: 10-02-2024 End: 35-37-8173TtnkrjzvnUniversity Hospitals Ahuja Medical Centertart: 73-66-0059Npfyp brachial pressure indexGeorgetown Behavioral Hospital CenterStart: 07-31-2024 End: 35-47-3229Rizej metabolic 1998 panel - Serum or PlasmaBasic metabolic panel Lab Routine Annual physical exam Expected: 07/31/2024 (Approximate), Expires: 07/31/2025HI HealthcareComment on above:Expected: 07/31/2024 (Approximate), Expires: 07/31/2025Start: 07-31-2024 End: 34-08-0700CUD W Auto Differential panel - BloodCBC and differential Lab Routine Annual physical exam Expected: 07/31/2024 (Approximate), Expires: 0 07/31/2025 HealthcareComment on above:Expected: 07/31/2024 (Approximate), Expires: 07/31/2025Start: 07-31-2024 End: 42-68-3919Hjijhlhrds A1c/Hemoglobin.total in BloodHemoglobin A1c Lab Routine Annual physical exam Expected: 07/31/2024 (Approximate), Expires: 07/31/2025HI HealthcareComment on above:Expected: 07/31/2024 (Approximate), Expires: 07/31/2025Start: 07-31-2024 End: 26-77-7782Mfoelfc function 2000 panel - Serum or PlasmaHepatic function panel Lab Routine Annual physical exam Expected: 07/31/2024 (Approximate), Expires: 07/31/2025 HealthcareComment on above:Expected: 07/31/2024 (Approximate), Expires: 07/31/2025Start: 07-31-2024 End: 08-80-0088Nlkxp 1996 panel - Serum or PlasmaLipid panel Lab Routine Annual physical exam Expected: 07/31/2024 (Approximate), Expires: 07/31/2025[facility] HealthcareComment on above:Expected: 07/31/2024 (Approximate), Expires: 07/31/2025Start: 07-31-2024 End: 68-76-8025Szadrrjwijll/Creatinine panel in random UrineMicroalbumin / creatinine, urine ratio Lab Routine Type 2 diabetes mellitus with hyperglycemia, without long-term current use of insulin ([facility]) Expected: 07/31/2024 (Approximate), Expires: 07/31/2025[facility] Work Phone: Comment on above:Expected: 07/31/2024 (Approximate), Expires: 07/31/2025Start: 07-31-2024 End: 19-83-5250Bbqgwnna specific Ag [Mass/volume] in Serum or PlasmaPSA Lab Routine Annual physical exam Expected: 07/31/2024 (Approximate), Expires: 07/31/2025NOMS HealthcareComment on above:Expected: 07/31/2024 (Approximate), Expires: 07/31/2025Start: 07-31-2024 End: 50-82-5567Ggwdqtyfxmi [Units/volume] in Serum or PlasmaTSH Lab Routine Annual physical exam Expected: 07/31/2024 (Approximate), Expires: 07/31/2025NOHI HealthcareComment on above:Expected: 07/31/2024 (Approximate), Expires: 07/31/2025Start: 07-31-2024 End: 69-87-0805Rqjekgd encounter ftqxpirft67/05/2025 10:45 AM EDT Office Visit [facility] [address] [place] [phone] Fidel Abbott MD [address] [place] [phone] ArrivedNOMS CWM FMComment on above:ArrivedStart: 05-22-2024 End: 58-58-9769Lhudbsn encounter sbsbeqjsx35/24/2025 1:15 PM EST Office Visit [facility] [address] [place] [address] Fidel Abbott MD [address] [place] [address] [facility] FMStart: 04-20-2024 End: 27-05-4516Eubtyrj encounter pxfaytfye49/23/2025 1:30 PM EST Office Visit [facility] [place] [address] [place] [phone] Iraj Valdivia MD [address] [place], [place] [phone] [facility]: 04-13-2024 End: 19-28-7890Lxnivhw encounter xhnkggrea14/16/2025 2:00 PM EST Office Visit [facility] [address] [phone] Iraj Valdivia MD [address] [place], [place] [phone] [facility]: 01-20-2024 End: 90-33-2576Zvdqkpj encounter akkxixmlr84/24/2024 11:45 AM EDT Office Visit [facility] [address] [place] [address] Fidel Abbott MD [address] [place] [address] [facility]rivedNOH[facility]CRE[facility] [place] FMComment on above:ArrivedStart: 17-14-9245FlqhpytnhJohns Hopkins All Children's Hospitaltart: 11-18-2023 End: 13-90-3000Jiycpya, urine, randomAlbumin, urine, random Lab Routine Type 2 diabetes mellitus with hyperglycemia, without long-term current use of insulin ([facility]) Expected: 11/18/2023 (Approximate), Expires: 11/17/2024[facility] Work Phone: Comment on above:Expected: 11/18/2023 (Approximate), Expires: 11/17/2024Start: 11-18-2023 End: 09-78-1168Ivunk metabolic 1998 panel - Serum or PlasmaBasic metabolic panel Lab Routine Encounter for long-term (current) use of medications Expected: (Approximate), Expires: 11/17/2024NOHI HealthcareComment on above: Expected: 11/18/2023 (Approximate), Expires: 11/17/2024Start: 11-18-2023 End: 92-88-5129VOV W Auto Differential panel - BloodCBC and differential Lab Routine Encounter for long-term (current) use of medications Expected: 10/28 (Approximate), Expires: 11/17/2024NOHI HealthcareComment on above: Expected: 11/18/2023 (Approximate), Expires: 11/17/2024Start: 11-18-2023 End: 86-03-7446Ccjmfpsswy A1c/Hemoglobin.total in BloodHemoglobin A1c Lab Routine Type 2 diabetes mellitus with hyperglycemia, without long-term current use of insulin ([facility]) Expected: 11/18/2023 (Approximate), Expires: 11/17/2024 [facility] HealthcareComment on above:Expected: 11/18/2023 (Approximate), Expires: 11/17/2024Start: 11-18-2023 End: 29-30-8365Novocwh function 2000 panel - Serum or PlasmaHepatic function panel Lab Routine Encounter for long-term (current) use of medications Expected: 11/18/2023 (Approximate), Expires: 11/17/2024[facility] HealthcareComment on above: Expected: 11/18/2023 (Approximate), Expires: 11/17/2024Start: 11-18-2023 End: 00-47-3117Frxrp 1996 panel - Serum or PlasmaLipid panel Lab Routine Type 2 diabetes mellitus with hyperglycemia, without long-term current use of insulin ([facility]) Expected: 11/18/2023 (Approximate), Expires: 11/17/2024[facility] Healthcare Comment on above:Expected: 11/18/2023 (Approximate), Expires: 11/17/2024Start: 10-18-2023 End: 68-33-9193Vvedvpp encounter ticcbdgnb91/22/2024 10:00 AM EDT Office Visit [facility] [address] [place] [address] Fidel Abbott MD [address] [place] [address] [facility] CWaSm FMStart: 91-27-6604OSD test (Diabetes, CKD 3-4, OR last GFR 15-59) GFR test (Diabetes, CKD 3-4, OR last GFR 15-59)[facility]ENTERStart: 99-24-0926Uixkd screening for proteinDiabetes: Urine Protein ScreeningCox SouthStart: 92-49-8650Duossibgfi A1c rhfkxtqhcnwY2J test (Diabetic or Prediabetic)[facility]ENTERStart: 98-86-0542TUN test (Diabetes, CKD 3- 4, OR last GFR 15-59)GFR test (Diabetes, CKD 3-4, OR last GFR 15-59)[facility] Campusart: 54-76-9035Koojzrbev for malignant neoplasm of colonBON [facility]ENTERStart: 45-33-4396CJS test (Diabetes, CKD 3-4, OR last GFR 15-59)GFR test (Diabetes, CKD 3-4, OR last GFR 15-59)[facility] KleerTO[facility] Start: 25-56-2085Ikxrerkua for malignant neoplasm of colonBON [facility]ENTERStart: 05-43-7674Gvzmf panelLipidsBON [facility]ENTERStart: 31-75-1984WRD test (Diabetes, CKD 3-4, OR last GFR 15-59)GFR test (Diabetes, CKD 3-4, OR last GFR 15-59)[facility] KleerTOGUS VA MEDICAL CENTERStart: 21-13-6613QeradggxjUniversity Hospitals Ahuja Medical Centertart: 05-20-2023 End: 09-73-8722Gbtgsra encounter hdjsznfte35/22/2024 3:10 PM EST Office Visit [facility] [address] [facility] [address] [place] [id number] Jonathan Moffett DPM [phone] [facility] [address] [place] [address] [facility]Start: 05-06-2023 End: 97-71-4067Rlaacew encounter sbbyksiow63/08/2024 10:20 AM EST Office Visit [facility] [address] [facility] [address] [place] [id number] Jonathan Moffett DPM [address] [facility] [address] [place] [address] [facility]RYStart: 04-41-5989Jvyapfple vaccination Flu vaccine (Season Ended)[facility]Start: 63-80-3500Icnedbclra A1c measurementDiabetes: Hemoglobin I4RPYCKCox SouthStart: 09-25-2022 End: 88-24-4255Uberyjn encounter nyyfnqfkf84/30/2023 [facility] End: 22-22-8879Wrhizwb encounter uapwflluh18/12/2023 [facility] End: 98-40-0212Fproobuou to same day surgery sqwhqq3507/07/2022 Surgery IP Unit Angeles Nagy MD [address] [place] [address], [address] [place] [address] CYSTOSCOPY TRANSURETHROTOMY- DVIU WITH POSS TRANSURETHRAL RESECTION OF BLADDER TUMORMTHZ ORComment on above:CYSTOSCOPY TRANSURETHROTOMY- DVIU WITH POSS TRANSURETHRAL RESECTION OF BLADDER TUMORStart: 2022 End: 37-87-2895Ktkfsolqkspparrxg w/internal urethrotomy maleCYSTOSCOPY TRANSURETHROTOMY Cauda equina syndrome (HCC) 2022 [facility]: 52-96-3756Hgsnygbdqj hospital visit by nswmlyehq55/11/2023 Hospital Encounter IP Unit Angeles Nagy MD [address] [place] [address], [address] [place] [address] MTHZ ORStart: 07-01-2022 End: 31-68-1087Qrpew metabolic 2000 panel - Serum or PlasmaBasic Metabolic Panel Lab Routine Acute kidney injury (HCC) Expected: 07/01/2022, Expires: 06/27/2023 [facility] Who is [employer]: comment on above:Expected: 07/01/2022, Expires: 06/27/2023Start: 07-01-2022 End: 14-15-9499XTY W Auto Differential panel - BloodCBC with Auto Differential Lab Routine Acute kidney injury (HCC) Iron deficiency anemia, unspecified iron deficiency anemia type Expected: 07/01/2022, Expires: 06/27/2023 Who is [employer]: comment on above:Expected: 07/01/2022, Expires: 06/27/2023Start: 54-69-5771Juvyem Wellness Visit (AWV)Annual Wellness Visit (AWV)[facility] [place]: 92-06-0987Odihbrqid vaccinationFlu vaccine (#1)[facility]ILL[facility] INFIRMARYWatson PharmaceuticalsTulsa: 63-36-9381Hpdpbkht foot examinationDiabetic foot examSTILLMAN INFIRMARYOrdr.in [facility] Hospitalart: 95-78-6485Biknbhfqwz A1c gzuzoxexpdjR6O test (Diabetic or Prediabetic)[facility]ILL[facility] INFIRMARYWatson PharmaceuticalsTulsa: 48-13-5031Nvffv panelLipidsBON BULLHEAD COMMUNITY HOSPITALGenscript Technology [facility] HOSPITALSuperMama [facility]: 75-30-4777Jlhml screening for protein [facility] INFIRMARYWatson PharmaceuticalsTulsa: 70-15-5459Accmqtawfndorw of varicella zoster vaccineZoster (Shingles) Vaccine (1 of 2)[facility]Start: 49-28-6590Ngumytqg vaccine (1 of 2)Shingles vaccine (1 of 2)[facility] INFIRMARYOrdr.in [facility]: 31-00-0277Mrzbpjcfj for malignant neoplasm of colonINOVA MOUNT VERN[facility] Joyent [facility]: 37-87-9097LEaR,Tdap and Td Vaccines (1 - Tdap)DTaP,Tdap and Td Vaccines (1 - Tdap)Critical access hospitaltart: 53-55-5154JSbE/Tdap/Td vaccine (1 - Tdap)DTaP/Tdap/Td vaccine (1 - Tdap)[facility]ILLMAN INFIRMARYGenscript Technology J.[facility] HOSPITALSuperMama [facility]: 70-50-7188Ybljf screening for proteinDiabetes: Urine Protein ScreeningCox SouthStart: 80-79-7861Yqukm BMI Follow Up PlanAdult BMI Follow Up Plan Critical access hospitaltart: 73-66-4793Msbliaqk screeningDiabetic retinal exam [facility]ENTERStart: 98-21-7485Jgnlabfeh C screeningHepatitis C screen [facility] CENTERStart: 89-98-6608YIH screeningHIV screenSENTARA WILLIAMSBURG REGIONAL MEDICAL CENTERStart: 56-96-8658Tbwaxbyldy MonitoringDepression MonitoringSENTARA WILLIAMSBURG REGIONAL MEDICAL CENTERStart: 39-98-0859Twzapfdfog ScreeningDepression Screening Critical access hospitaltart: 98-11-4161Nhcecxye screeningDiabetes: Retinopathy ScreeningCox SouthStart: 06-39-9785Ootmlmlrhxfs 0-64 years Vaccine (1 - PCV)Pneumococcal 0-64 years Vaccine (1 - PCV)[facility] CENTERStart: 95-53-3609TODBV-19 Vaccine (#1)COVID-19 Vaccine (#1)[facility] Start: 82-21-9847Wldhvsbib for malignant neoplasm of colonNOHI HealthcareAEROBIC CULTUREAEROBIC CULTURE Lab Routine 10/02/2024 12:38 PM [facility]TUIN[facility] Work Phone: ANAEROBIC CULTUREANAEROBIC CULTURE Lab Routine 10/02/2024 12:38 PM EDMethod[facility] by [facility] HealthBacteria identified in Unspecified specimen by Aerobe cultureCleveland Clinic Euclid HospitalBacteria identified in Unspecified specimen by Anaerobe cultureCleveland Clinic Euclid Hospital End: 53-72-3023Gxusy metabolic 2000 panel - Serum or PlasmaBasic Metabolic Panel Lab Routine Stage 3a chronic kidney disease ([facility]) 1 Occurrences starting 1 until 01/16/2025[facility] Work Phone: Comment on above:1 Occurrences starting 01/17/2024 until 01/16/2025 End: 86-98-2826IQX panel - Blood by Automated countCBC without diff Lab Routine Stage 3a chronic kidney disease ([facility]) 1 Occurrences starting 01/17/2024 until 01/16/2025[facility] SystemComment on above:1 Occurrences starting 01/17/2024 until 01/16/2025 End: 26-65-3586LUW W Auto Differential panel - BloodCBC auto differential Lab Routine Daily for 5 Days starting 06/23/2022 until 06/27/2022, 4 [facility] Phone: comment on above:Daily for 5 Days starting 06/23/2022 until 06/27/2022, 4 completedCulture, Wound Aerobic OnlyCulture, Wound Aerobic Only Microbiology [employer] Label Print 06/25/2022 12:20 PM EDTBAcupera Work Phone: End: 90-81-5081Dyvzgcubdn and HematocritHemoglobin and Hematocrit Lab Routine Post Transfusion Post Transfusion Post Transfustion until discontinued starting 06/24/2022, 1 [facility] Phone: comment on above:Post Transfusion Post Transfusion Post Transfustion until discontinued starting 06/24/2022, 1 completed End: 42-59-7440Petpjkvzf [Mass/volume] in Serum or PlasmaMagnesium Lab Routine Stage 3a chronic kidney disease ([facility]) 1 Occurrences starting 01/17/2024 un til 01/16/2025ProMedicine in Practice SystemComment on above:1 Occurrences starting 01/17/2024 until 01/16/2025Oxygen therapy [Minimum Data Set]Initiate Oxygen Therapy Protocol Respiratory Care Routine Daily until discontinued starting 06/22/2022 Who is Undercover Spy Phone: comvvzl on above:Daily until discontinued starting 06/22/2022 End: 50-51-2156Essjsilxvzk Hormone, intactParathyroid Hormone, intact Lab Routine Stage 3a chronic kidney disease ([facility]) 1 Occurrences starting 01/17/2024 until 01/16/2025ProMedicine in Practice SystemComment on above:1 Occurrences starting 01/17/2024 until 01/16/2025Patient EducationKnow your [facility] Work Phone: Patient referralGeorgetown Behavioral Hospital Ctr Work Phone: End: 20-22-9307Ksdqoglfa [Mass/volume] in Serum or PlasmaPhosphorus Lab Routine Stage 3a chronic kidney disease ([facility]) 1 Occurrences starting 01/17/2024 u ntil 01/16/2025ProMedicine in Practice SystemComment on above:1 Occurrences starting 01/17/2024 until 01/16/2025 End: 78-33-8173MJTTVPV RBC (CROSSMATCH), 1 UnitsPREPARE RBC (CROSSMATCH), 1 Units Blood Bank Routine Once for 1 Occurrences starting 06/24/2022 until 06/24/2022ON Who is Undercover Spy Phone: comvmhi on above:Once for 1 Occurrences starting 06/24/2022 until 06/24/2022 End: 58-96-9602Lscyxwy creat ratioProtein creat ratio Lab Routine Stage 3a chronic kidney disease ([facility]) 1 Occurrences starting 01/17/2024 until 01/16/2025ProPostSharp TechnologiesComment on above:1 Occurrences starting 01/17/2024 until 01/16/2025 End: 41-41-1992Navwbttt PathologySurgical Pathology Lab Routine One Time for 1 Occurrences starting 06/25/2022 until 06/25/2022ON Who is Undercover Spy Phone: comment on above:One Time for 1 Occurrences starting 06/25/2022 until 06/25/2022Surgical PathologySurgical Pathology Lab Routine Hyperkalemia Release Upon Ordering for 1 Occurrences starting 06/26/2022 Who is Undercover Spy Phone: comcxkk on above:Release Upon Ordering for 1 Occurrences starting 06/26/2022 End: 93-46-6728JMMEHWCB PATHOLOGY REPORTSURGICAL PATHOLOGY REPORT Lab Routine Once for 1 Occurrences starting 06/25/2022 until 06/25/2022 Who is Undercover Spy Phone: comment on above:Once for 1 Occurrences starting 06/25/2022 until 06/25/2022 End: 88-09-3469RSUMACWJ PATHOLOGY REPORTSURGICAL PATHOLOGY REPORT Lab Routine Once for 1 Occurrences starting 06/26/2022 until 06/26/2022ON Who is Undercover Spy Phone: Comment on above:Once for 1 Occurrences starting 06/26/2022 until 06/26/2022 End: 93-29-5421XzuvaovmsuErrxzeaqns Lab Routine Stage 3a chronic kidney disease ([facility]) 1 Occurrences starting 01/17/2024 until 01/16/2025ProGrove Hill Memorial Hospital Health SystemComment on above:1 Occurrences starting 01/17/2024 until 01/16/2025 End: 82-55-7135Kxtuyyh D 25 hydroxyVitamin D 25 hydroxy Lab Routine Stage 3a chronic kidney disease ([facility]) 1 Occurrences starting 01/17/2024 until 01/16/2025ProGrove Hill Memorial Hospital Health SystemComment on above:1 Occurrences starting 01/17/2024 until 01/16/2025[facility] Immunizations Immunization DateImmunizationNotesCare LzyqaceyQrvkvodo27-94-2703kwhjcwocg, injectable, quadrivalent, preservative freeMD Fidel Abbott Work Phone: [facility]11-16-2023influenza virus vaccine, unspecified formulationFidel Abbott MD Work Phone: Cox SouthKrzplrumnh37-14-5313rfbrvzieh virus vaccine, unspecified formulationBalwindertricwillam Receptos [facility] HospitalComment on above:Result Comment: 2022-11-09: VIS DATE: 11/02/2014 24-82-8569iakhtzhhd, injectable, quadrivalent, preservative freeFidel Abbott MD Work Phone: bon [facility] CENTERMJNLHP94-60-8978Rmhzevqix Vaccine, unspecified formulationFidel Abbott MD Work Phone: bon [facility] MEDICAL CENTERYRPAMW44-47-9740djduifcaq virus vaccine, unspecified formulationJovanny Receptos [facility]10-06-2015influenza, seasonal, injectableMD Fidel Abbott Work Phone: [facility]10-15-2014influenza virus vaccine, unspecified formulationPatricwillam VILLA [facility] Payers DatePayer CategoryPayerPolicy [id number]-wju [id number] Cross Blue Shield Managed Care - PPOANTHEM Member Subscriber Plan / Payer (Effective 2022-Present) Name: Ganga Stinson Relation to Subscriber: Unknown Name: Pradip Stinson Date of : 1960 Address: [place] [address] Payer ID: [id number] (NAIC) Type: Not on file Address: [place] [id number] 21-68-5767M[facility]aUnion [facility] 1.2.840.114862.1.13.693.2.7.9.992145.213851.84098-41-3148NcalvzrLKWM BCBS [id number] 2021- [id number] [place] [phone] 1.2.840.560661.1.13.693.2.7.3.427237.35634-71-2686QorodwzWNJ10654026-50-2923 Medicare1.2.840.627436.1.13.693.2.7.3.819[id number] 2.16.840.1.262179.3.57[id number] 2.16.840.1.998507.3.57[id number] 2.16.840.1.112077.3.57[id number] 2.16.840.1.391909.3.57[id number] 2.16.840.1.901258.3.579.[id number] 2.16.840.1.159160.3.579.2.[id number] 2.16.840.1.335193.3.579.2.[id number] 2.16.840.1.307917.3.57[id number] 2.16.840.1.394127.3.579.[id number] 2.16.840.1.307208.3.57[id number] 2.16.840.1.060567.3.579.2.48770-78-6153Xlqnevz72373560 2.16.840.1.338693.3.57[id number] 2.16.840.1.809768.3.579.2.902977-69-9499Ipdlkxd1567624 2.16.840.1.191926.3.579.2.164796-99-1144Rovwkkd2015246 2.16.840.1.861870.3.579.2.627209-15-6006Hozpyul9147081 2..840.1.522885.3.579.2.839240-16-5360Drmjfxt68101310 2..840.1.020556.3.579.[id number] 2..0.1.347555.3.579.2.727 [id number] 1959Unknown [id number] Health Insurance [id number] 2..840.1.3[id number] 2.840.1.267549.3.579.2.531 [id number] 2.840.1.3[id number] 2.0.1.62613[id number] 2.840.1.572481.3.579.2.531 Social History DateTypeDetailFacilityStart: 01-27-2022 End: 73-36-1512Wzatgzh smoking status NHISNever smoked tobacco (finding) [facility] Centertart: 73-37-7099Zwn Assigned At [facility] Hospitaltart: 06-22-2022 End: 25-97-3059Yzulsnu use and exposureSmokeless tobacco non-userBON Who is Undercover Spy Phone: start: 06-22-2022 End: 32-03-5399Ghrfvvz intakeCurrent non-drinker of alcohol (finding)[facility] [place] Work Phone: start: 22-81-7430Kki Assigned At BirthNot on fileCOBRE VALLEY REGIONAL MEDICAL [facility] [place] Work Phone: start: 06-12-2022 End: 20-36-7667Gddyipjc to SARS-CoV-2 (event)Not sureCOBRE VALLEY REGIONAL MEDICAL CENTER [place] Start: 23-43-9821Xniined SDOH Alcohol Gtcorlgrd9MZA [place] Work Phone: start: 08-90-7147Xyvvgxw SDOH Alcohol Std Dnheaq4BMS [place] Work Phone: start: 56-51-7406Baqaltu smoking statusNeverExecutive Urology of [facility] Hospitaltart: 04-29-2023 End: 11-84-3393Enq Assigned At BirthLima City Hospitaltart: 04-29-2023 End: 77-04-3685Bcxemao intakeLifetime non-drinker (finding)[facility] HealthcareStart: 04-29-2023 End: 50-47-8886Wnqhaar of Social functionNOMS HealthcareStart: 11-01-2014 End: 61-21-1968WiqKoan (finding)[facility] SystemDo you belong to any clubs or organizations such as zoroastrian groups, unions, fraternal or athletic ronni ups, or school groups?NoNOMS HealthcareAre you now , , , , never or living with a partner?MarriedNOMS HealthcareHow often do you have 6 or more drinks on 1 occasion?NeverNOMS Healthcare(I/We) worried whether (my/our) food would run out before (I/we) got money to buy more. Never trueNOMS HealthcareSexual OrientationExecutive Urology of [facility] Medical Equipment Procedure CodeEquipment CodeEquipment Original TextEquipment IdentifierDates Wound debridementEPIFIX MESH SHEET 4X4.5CMFDAStart: 52-11-6400Hjskc debridement Collagen wound matrix dressing()[id number] FDAStart: 77-06-3590Xlrcr debridementCollagen wound matrix dressing ()[id number] FDAStart: 52-18-1730Tibng debridement EPIFIX MESH SHEET 4X4.5CMFDAStart: 45-03-4154Olnad debridementEPIFIX MESH SHEET 4X4.5CMFDAStart: 40-06-1841Uzdkv debridementEPIFIX MESH SHEET 4X4.5CMFDAStart: 69-83-5621Bcarc debridementEPIFIX MESH SHEET 4X4.5CMFDAStart: 35-78-6075Erilf debridementEPIFIX MESH SHEET 4X4.5CMFDAStart: 33-30-6703Sqpic debridementEPIFIX MESH SHEET 4X4.5CMFDAStart: 89-87-1665Wobxp debridementEPIFIX MESH SHEET 4X4.5CM FDAStart: 84-26-3076Wpcnd debridementEPIFIX MESH SHEET 4X4.5CMFDAStart: 42-17-7408Tqgjthdwoe, toeCollagen wound matrix dressing ()[id number])[id number] FDAStart: 12-46-6111Iuhfb Subst Resorbable Mini [id number]: 71-22-5568Npegriv on above:Description: tobramyicin recostituted with 10ml normal saline ref # [id number] exp 07/27/2018 lot #[id number] Goals DatePatient GoalDesired Activity/State Functional Status RuzdTbhdghmvmzCucwwmOyowpmvm76-56-2056Gkdfa score [AUDIT-C]-1 10/17/2023 1:08 PM EDT Carmine PrinceRogers Memorial Hospital - OconomowocAwcsjyrojc97-72-4584Ejkrgqjxgb statusPatient [facility]07-21-2024How often do you have 6 or more drinks on 1 occasion?Never 10/17/2023 1:08 PM EDT Jonelle Prince [place] [address]Fihzwtvujk70-16-5817Abghgbjiph StatusN/AExecutive Urology of [facility] Clinical Notes 07-29-2021 to 01-23-2025 Note Date & CyegJvdoXgergixq55-79-1549 Evaluation note* Diagnosis Onset Date Resolution Status Admit Date Diabetes mellitus due to underlying cond ition with diabetic neuropathy, wit acuteOctober 2024 10:54amPressure injury of left ischium, stage 4acute January 23, 2025 10:54amPressure injury of right ischium, stage 4acuteOctober 2024 10:54amStage IV pressure ulcer of sacral regionacuteOctober 2024 10:54amCauda equina spinal cord injurychronicOctober 2024 10:54am [facility] Work Phone: 1(962) 600-274410-28-2025 Evaluation note* Diagnosis Onset Date Resolution Status [...] with hyperglycemia, without long-term current useacuteNov2024 9:41am [facility] Work Phone: 1(349) 785-560710-20-2025 Hospital Discharge instructions Patient Education 01/15/2025 11:30:05 [...] reconstructed. Follow these instructions at home: Take zlax-wzk-lzccdjg and prescription medicines only as told by [...] provider. Document Revised: 01/07/2023 Document Reviewed: 01/07/2023 [employer] Patient Education 2023 [employer]. Follow Up Care 01/11/2025 11:29:22 With:ALLEN NAZARIO, Jovanny Christie, URL Address: [address] [place] [phone] When: Unknown Comments:sched cysto/UD [facility] 10-20-2025 NotePatient Education Urology Urethral Stricture [...] Follow these instructions at home: ??? Take bfqm-xwe-rranpzy and prescription medicines only as told by [...] Reviewed: 01/07/2023 Elsevier Patient Education ? 2023 [employer] 08-15-2024 Evaluation note* Diagnosis Onset Date [...] legs with complicationacute August 30, 2024 11:16am [facility] Work Phone: 1(603) 904-291405-20-2025 Evaluation note* Diagnosis Onset Date Resolution Status Admit Date Diabetes mellitus due to underlying cond ition with diabetic neuropathy, wit acuteMay 2024 10:28amPressure injury of left ischium, stage 4acuteMay 2024 10:28amPressure injury of right ischium, stage 4acuteMay 2024 10:28amStage IV pressure ulcer of sacral regionacuteMay 2024 10:28amCauda equina spinal cord injurychronicMay 2024 10:28am [facility] Work Phone: 1(327) 530-208105-20-2025 Evaluation note* Diagnosis Onset Date Resolution Status [...] equina spinal cord injury chronicJuly 2024 10:30am [facility] Work Phone: 1(565) 594-313905-05-2025 History of Present illness Narrative* Fidel Abbott MD - 07/31/2024 11:20 AM EDTAssociated Problem(s): Class 2 severe obesity due to excess calories with serious comorbidity and body mass index (BMI) of 36.0 to 36.9 in adult ([facility]) Weight loss indicated. * Fidel Abbott MD - 07/31/2024 11:18 AM EDTAssociated Problem(s): Type 2 diabetes mellitus with hyperglycemia, without long-term current use of insulin ([facility]) Reports BS stable and due for A1C. Stick to ADA diet and limit carbs. * Fidel Abbott MD - 07/31/2024 11:18 AM EDTAssociated Problem(s): Major depressive disorder, recurrent episode, mild (HCC) ([facility]) Mood controlled with celexa and continue. * Fidel Abbott MD - 07/31/2024 11:18 AM EDTAssociated Problem(s): Incontinence overflow, urine Symptoms tolerable with medication and continue. * Fidel Abbott MD - 07/31/2024 11:18 AM EDTAssociated Problem(s): Chronic superficial gastritis Symptoms controlled with medication and continue. * Fidel Abbott MD - 07/31/2024 11:18 AM EDTAssociated Problem(s): Benign hypertension ([facility]) BP controlled and monitor PRN. [...] Lipid panel PSA TSH documented in this encounterCox SouthGxyytpnizz34-22-1886 Miscellaneous Notes* Telephone Encounter - Fatemeh Cain - 04/17/2024 1:56 PM EST Pt called to reschedule new pt appt due to lack of transportation. I informed him that we have no availability in [place] until [facility] July schedule opens up. He stated he will call back the first weekof April to reschedule. documented in this encounterMary [facility]01-20-2025 Telephone encounter Note* Telephone Encounter - Fatemeh Cain - 04/17/2024 1:56 PM EST Pt called to reschedule new pt appt due to lack of transportation. I informed him that we have no availability in [place] until [facility] July schedule opens up. He stated he will call back the first weekof April to reschedule. [facility] PhantomAlert.com. Ubruge88-02-9560 Miscellaneous Notes* Telephone Encounter - Mary Conner CMA - 04/14/2024 3:23 PM EST Left message for patient to call the office back to confirm upcoming appointment 04/20 at 1:[address] Valdivia in [place]. Also stated that patient needs to get labs done prior to upcoming appointment documented in this encounterMary [facility]an Hospital01-17-2025 Telephone encounter Note* Telephone Encounter - Mary Conner CMA - 04/14/2024 3:23 PM EST Left message for patient to call the office back to confirm upcoming appointment 04/20 at 1:[address] Valdivia in [place]. Also stated that patient needs to get labs done prior to upcoming appointment [facility]01-09-2025 Miscellaneous Notes* Telephone Encounter - Mary Conner CMA - 04/06/2024 2:38 PM EST Left message for patient to call the office back to confirm upcoming appointment 04/13 at 2:[address] Valdivia in [place]. Also stated that patient needs to get labs done prior to upcoming appointment documented in this encounterMary [facility]an Hospital01-09-2025 Telephone encounter Note* Telephone Encounter - Mary Conner CMA - 04/06/2024 2:38 PM EST Left message for patient to call the office back to confirm upcoming appointment 04/13 at 2:[address] Valdivia in [place]. Also stated that patient needs to get labs done prior to upcoming appointment [facility]12-17-2024 Progress note Author Cathy Brar [facility] HospitalNote Date/TimeDecemb2023 11:23am [place] [address] Wound Center Provider Note Signed Patient: Ganga Stinson MR#: [id number] : 1960 Acct:[id number] Age/Sex: 63 / M Copies to: MD [...] start?: 10 plus years Mode of Arrival/ Rat Poisoner: Personal vehicle and Family Assistive Device Used [...] Itching Wound/Ulcer Sacrum: Bed Appearance: Beefy Red, [place], Rolled Edges and Yellow Percent of Wound [...] Ischium: Bed Appearance: Beefy Red, Bone Palpable, [place] and Yellow Percent of Wound Bed Granulated/Red: [...] Ischium: Bed Appearance: Beefy Red, Bone Palpable, [place], Rolled Edges and Yellow Percent of Wound Bed Granulated/Red: 90 Percent of Devitalized: 10 Length (cm): 0.5 Width (cm): 0.5 Depth (cm): 2.5 CM Sq: 0.250 Tunneling Position: 10:00 Tunneling Depth: 4 Surrounding Tissue Appearance: [place] and Macerated Surrounding Tissue Temp: Warm Drainage [...] signed by MD Cathy Brar> 03/14/24 1123 [facility] Work Phone: 1(814) 355-429312-17-2024 Evaluation note* Diagnosis Onset Date Resolution Status Admit Date Diabetes mellitus due to underlying cond ition with diabetic neuropathy, wit acutece 2023 10:42amPressure injury of left ischium, stage 4acute March 14, 2024 10:42amPressure injury of right ischium, stage 4acute March 14, 2024 10:42amStage IV pressure ulcer of sacral regionacuteDecechandler regional medical center 2023 10:42amCauda equina spinal cord injurychronicSt. [facility] 2023 10:42am [facility] Work Phone: 1(284) 674-474912-17-2024 [place] [address] Wound Center Provider Note Signed Patient: Ganga Stinson MR#: [id number] : 1960 Acct:[id number] Age/Sex: 63 / M Copies to: MD [...] start?: 10 plus years Mode of Arrival/ Rat Poisoner: Personal vehicle and Family Assistive Device Used [...] Itching Wound/Ulcer Sacrum: Bed Appearance: Beefy Red, [place], Rolled Edges and Yellow Percent of Wound [...] Ischium: Bed Appearance: Beefy Red, Bone Palpable, [place] and Yellow Percent of Wound Bed Granulated/Red: [...] Ischium: Bed Appearance: Beefy Red, Bone Palpable, [place], Rolled Edges and Yellow Percent of Wound Bed Granulated/Red: 90 Percent of Devitalized: 10 Length (cm): 0.5 Width (cm): 0.5 Depth (cm): 2.5 CM Sq: 0.250 Tunneling Position: 10:00 Tunneling Depth: 4 Surrounding Tissue Appearance: [place] and Macerated Surrounding Tissue Temp: Warm Drainage [...] underlying condition with diabetic neuropathy,unspecified; Z79.4 - custodial (current) use of insulin Plan Continue with [...] 1121 Signed By: 03/14/24 1123 [facility]11-12-2024 Progress note Author Cathy Brar [facility] HospitalNote Date/TimeNovember 2023 11:44am [place] [address] Wound Center Provider Note Signed Patient: Ganga Stinson MR#: [id number] : 1960 Acct:[id number] Age/Sex: 63 / M Copies to: MD [...] start?: 10 plus years Mode of Arrival/ Rat Poisoner: Personal vehicle and Family Assistive Device Used [...] Itching Wound/Ulcer Sacrum: Bed Appearance: Beefy Red, [place], Rolled Edges and Yellow Percent of Wound [...] Jelly Right Ischium: Bed Appearance: Beefy Red, [place] and Yellow Percent of Wound Bed Granulated/Red: 90 Percent of Devitalized: 10 Length (cm): 6.6 Width (cm): 7.4 Depth (cm): 4.0 CM Sq: 48.840 Undermining Position: 8-11 Undermining Depth: 3.5 Tunneling Position: 00:00 Tunneling Depth: 0 Surrounding Tissue Appearance: Rolled Edges and Rash/Irritation Surrounding Tissue Temp: Warm Drainage Amount: Large Drainage Description: Serosanguineous Drainage Odor: No Odor Left Ischium: Bed Appearance: Beefy Red, [place], Rolled Edges and Yellow Percent of Wound [...] signed by MD Cathy Brar> 02/08/24 1144 [facility] Work Phone: 1(274) 263-924211-12-2024 Evaluation note* Diagnosis Onset Date Resolution Status Admit Date Diabetes mellitus due to underlying cond ition with diabetic neuropathy, wit acuteFebruary 08, 2024 10:48amPressure injury of left ischium, stage 4acute February 08, 2024 10:48amPressure injury of right ischium, stage 4acute February 08, 2024 10:48amStage IV pressure ulcer of sacral regionacuteFebruary 08, 2024 10:48amCauda equina spinal cord injurychronicFebruary 08, 2024 10:48am [facility] Work Phone: 1(106) 180-778011-12-2024 [place] [address] Wound Center Provider Note Signed Patient: Ganga Stinson MR#: [id number] : 1960 Acct:[id number] Age/Sex: 63 / M Copies to: MD [...] start?: 10 plus years Mode of Arrival/ Rat Poisoner: Personal vehicle and Family Assistive Device Used [...] Itching Wound/Ulcer Sacrum: Bed Appearance: Beefy Red, [place], Rolled Edges and Yellow Percent of Wound [...] Jelly Right Ischium: Bed Appearance: Beefy Red, [place] and Yellow Percent of Wound Bed Granulated/Red: 90 Percent of Devitalized: 10 Length (cm): 6.6 Width (cm): 7.4 Depth (cm): 4.0 CM Sq: 48.840 Undermining Position: 8-11 Undermining Depth: 3.5 Tunneling Position: 00:00 Tunneling Depth: 0 Surrounding Tissue Appearance: Rolled Edges and Rash/Irritation Surrounding Tissue Temp: Warm Drainage Amount: Large Drainage Description: Serosanguineous Drainage Odor: No Odor Left Ischium: Bed Appearance: Beefy Red, [place], Rolled Edges and Yellow Percent of Wound [...] 1141 Signed By: 02/08/24 1144 [facility]10-24-2024 History of Present illness Narrative * [...] and use hydroxyzine PRN. documented in this encounterCox [id number] Evaluation note* Diagnosis Stage 3a chronic kidney disease ([facility])- Primary documented in this encounter [facility] [email or web address]. [id number] Miscellaneous Notes* Telephone Encounter - Fatemeh Cain - 01/12/2024 9:03 AM EDT LM to schedule new pt appt. documented in this encounterNorthwestern Medical CenterMedicine in Practice [id number] Telephone encounter Note* Telephone Encounter - Fatemeh Cain - 01/12/2024 9:03 AM EDT LM to schedule new pt appt. [facility] [email or web address]. [id number] Progress note Author Cathy Brar [facility] HospitalNote Date/TimeOctober 2023 11:52am [place] [address] Wound Center Provider Note Signed Patient: Ganga Stinson MR#: [id number] : 1960 Acct:[id number] Age/Sex: 63 / M Copies to: MD [...] start?: 10 plus years Mode of Arrival/ Rat Poisoner: Personal vehicle and Family Assistive Device Used [...] Itching Wound/Ulcer Sacrum: Bed Appearance: Beefy Red, [place] and Yellow Percent of Wound Bed Granulated/Red: 90 Percent of Devitalized: 10 Length (cm): 2.9 Width (cm): 1.5 Depth (cm): 3 CM Sq: 4.350 Undermining Position: 360 Undermining Depth: 3.5 Surrounding Tissue Appearance: Bright Red and Rash/Irritation Surrounding Tissue Temp: Warm Drainage Amount: Large Drainage Description: Serosanguineous Drainage Odor: No Odor Right Ischium: Bed Appearance: Beefy Red, [place] and Yellow Percent of Wound Bed Granulated/Red: 90 Percent of Devitalized: 10 Length (cm): 7 Width (cm): 7.5 Depth (cm): 4.0 CM Sq: 52.500 Undermining Position: 8-11 Undermining Depth: 4.0 Tunneling Position: 00:00 Tunneling Depth: 0 Surrounding Tissue Appearance: Rolled Edges and Rash/Irritation Surrounding Tissue Temp: Warm Drainage Amount: Large Drainage Description: Serosanguineous Drainage Odor: No Odor Left Ischium: Bed Appearance: Beefy Red, [place], Rolled Edges and Yellow Percent of Wound Bed Granulated/Red: 90 Percent of Devitalized: 10 Length (cm): 0.7 Width (cm): 0.8 Depth (cm): 2.9 CM Sq: 0.560 Tunneling Position: 10:00 Tunneling Depth: 3 Surrounding Tissue Appearance: [place] Surrounding Tissue Temp: Warm Drainage Amount: Large [...] underlying condition with diabetic neuropathy,unspecified; Z79.4 - custodial (current) use of insulin Plan Continue with current dressing changes and pressure relief. Podiatry following the patient's foot ulcers. Follow-up in 1 month See Instructions for Orders See Instructions for Orders See Wound Discharge Instructions for Orders: Dictated By: Cathy Brar MD DD/ 49 Signed By: <Electronically signed by MD Cathy Brar> 01/04/24 1052 [facility] Work Phone: 1(784) 272-984510-08-2024 [place] [address] Wound Center Provider Note Signed Patient: Ganga Stinson MR#: [id number] : 1960 Acct:[id number] Age/Sex: 63 / M Copies to: MD [...] start?: 10 plus years Mode of Arrival/ Rat Poisoner: Personal vehicle and Family Assistive Device Used [...] Itching Wound/Ulcer Sacrum: Bed Appearance: Beefy Red, [place] and Yellow Percent of Wound Bed Granulated/Red: 90 Percent of Devitalized: 10 Length (cm): 2.9 Width (cm): 1.5 Depth (cm): 3 CM Sq: 4.350 Undermining Position: 360 Undermining Depth: 3.5 Surrounding Tissue Appearance: Bright Red and Rash/Irritation Surrounding Tissue Temp: Warm Drainage Amount: Large Drainage Description: Serosanguineous Drainage Odor: No Odor Right Ischium: Bed Appearance: Beefy Red, [place] and Yellow Percent of Wound Bed Granulated/Red: 90 Percent of Devitalized: 10 Length (cm): 7 Width (cm): 7.5 Depth (cm): 4.0 CM Sq: 52.500 Undermining Position: 8-11 Undermining Depth: 4.0 Tunneling Position: 00:00 Tunneling Depth: 0 Surrounding Tissue Appearance: Rolled Edges and Rash/Irritation Surrounding Tissue Temp: Warm Drainage Amount: Large Drainage Description: Serosanguineous Drainage Odor: No Odor Left Ischium: Bed Appearance: Beefy Red, [place], Rolled Edges and Yellow Percent of Wound Bed Granulated/Red: 90 Percent of Devitalized: 10 Length (cm): 0.7 Width (cm): 0.8 Depth (cm): 2.9 CM Sq: 0.560 Tunneling Position: 10:00 Tunneling Depth: 3 Surrounding Tissue Appearance: [place] Surrounding Tissue Temp: Warm Drainage Amount: Large [...] 1050 Signed By: 01/04/24 1052 [facility]08-22-2024 History of Present illness Narrative * [...] panel CBC and differential documented in this encounterCox [id number] Progress note Author Cathy Brar [facility] HospitalNote Date/TimeAugust 2023 1:07pm[place] [address] Wound Center Provider Note Signed Patient: Ganga Stinson MR#: [id number] : 1960 Acct:[id number] Age/Sex: 63 / M Copies to: MD [...] his foot ulcers and [facility]. Currently, home [...] start?: 10 plus years Mode of Arrival/ Rat Poisoner: Personal vehicle and Family Assistive Device Used [...] Sacrum: Bed Appearance: Beefy Red, Bone Palpable, [place] and Yellow Percent of Wound Bed Granulated/Red: 90 Percent of Devitalized: 10 Length (cm): 2.5 Width (cm): 2 Depth (cm): 3 CM Sq: 5.000 Undermining Position: 360 Undermining Depth: 4 Surrounding Tissue Appearance: Bright Red and Rash/Irritation Surrounding Tissue Temp: Warm Drainage Amount: Large Drainage Description: Serosanguineous Drainage Odor: No Odor Right Ischium: Bed Appearance: Beefy Red, [place] and Yellow Percent of Wound Bed Granulated/Red: [...] Odor Left Ischium: Bed Appearance: Beefy Red, [place], Rolled Edges and Yellow Percent of Wound Bed Granulated/Red: 90 Percent of Devitalized: 10 Length (cm): 0.7 Width (cm): 0.8 Depth (cm): 2.3 CM Sq: 0.560 Tunneling Position: 10:00 Tunneling Depth: 3 Surrounding Tissue Appearance: [place] Surrounding Tissue Temp: Warm Drainage Amount: Large [...] underlying condition with diabetic neuropathy,unspecified; Z79.4 - custodial (current) use of insulin Plan Continue with [...] <Electronically signed by MD Cathy Brar> 11/09/231206 [facility] Work Phone: 1(687) 899-952508-13-2024 [place] [address] Wound Center Provider Note Signed Patient: Ganga Stinson MR#: [id number] : 1960 Acct:[id number] Age/Sex: 63 / M Copies to: MD [...] start?: 10 plus years Mode of Arrival/ Rat Poisoner: Personal vehicle and Family Assistive Device Used [...] Sacrum: Bed Appearance: Beefy Red, Bone Palpable, [place] and Yellow Percent of Wound Bed Granulated/Red: 90 Percent of Devitalized: 10 Length (cm): 2.5 Width (cm): 2 Depth (cm): 3 CM Sq: 5.000 Undermining Position: 360 Undermining Depth: 4 Surrounding Tissue Appearance: Bright Red and Rash/Irritation Surrounding Tissue Temp: Warm Drainage Amount: Large Drainage Description: Serosanguineous Drainage Odor: No Odor Right Ischium: Bed Appearance: Beefy Red, [place] and Yellow Percent of Wound Bed Granulated/Red: [...] Odor Left Ischium: Bed Appearance: Beefy Red, [place], Rolled Edges and Yellow Percent of Wound Bed Granulated/Red: 90 Percent of Devitalized: 10 Length (cm): 0.7 Width (cm): 0.8 Depth (cm): 2.3 CM Sq: 0.560 Tunneling Position: 10:00 Tunneling Depth: 3 Surrounding Tissue Appearance: [place] Surrounding Tissue Temp: Warm Drainage Amount: Large [...] underlying condition with diabetic neuropathy,unspecified; Z79.4 - custodial (current) use of insulin Plan Continue with [...] 01 Signed By: 11/09/23 1207 [facility]07-09-2024 Progress note Author Cathy Brar [facility] HospitalNote Date/TimeJuly 2023 12:20pm[place] [address] Wound Center Provider Note Signed Patient: Ganga Stinson MR#: [id number] : 1960 Acct:[id number] Age/Sex: 63 / M Copies to: MD [...] is Dr. Abbott. Patient also sees a dinner cook. Apparently he was to start on a new medication and will need to be on blood thinners because of the medication. Subjective Pain Buttock: Pain Intensity: 6 Wound/Ulcer History When did wound start?: 10 plus years Mode of Arrival/ Rat Poisoner: Personal vehicle and Family Assistive Device Used [...] Itching Wound/Ulcer Sacrum: Bed Appearance: Beefy Red, [place] and Yellow Percent of Wound Bed Granulated/Red: 90 Percent of Devitalized: 10 Length (cm): 2.6 Width (cm): 1.5 Depth (cm): 2.9 CM Sq: 3.900 Undermining Position: 360 (deepest at 9) Undermining Depth: 4.5 Surrounding Tissue Appearance: Hyperpigmented Surrounding Tissue Temp: Warm Drainage Amount: Large Drainage Description: Serosanguineous Drainage Odor: No Odor Right Ischium: Bed Appearance: Beefy Red, Bone Palpable, [place] and Yellow Percent of Wound Bed Granulated/Red: 90 Percent of Devitalized: 10 Length (cm): 5 Width (cm): 7 Depth (cm): 3.5 CM Sq: 35.000 Undermining Position: 8-11 (deepest at 9) Undermining Depth: 3.7 Surrounding Tissue Appearance: Hyperpigmented Surrounding Tissue Temp: Warm Drainage Amount: Large Drainage Description: Serosanguineous Left Ischium: Bed Appearance: Beefy Red, [place] and Yellow Percent of Wound Bed Granulated/Red: [...] to start on new medications prescribed by dinner cook. Patient and were told to monitor for evidence of bleeding from the wounds. Follow-up in about 1 month. See Instructions for Orders See Instructions for Orders See Wound Discharge Instructions for Orders: Dictated By: Cathy Brar MD DD/ 1115 Signed By: <Electronically signed by MD Cathy Brar> 10/05/23 [facility]0 [facility] Work Phone: 1(438) 769-260007-09-2024 [place] [address] Wound Center Provider Note Signed Patient: Ganga Stinson MR#: [id number] : 1960 Acct:[id number] Age/Sex: 63 / M Copies to: MD [...] is Dr. Abbott. Patient also sees a dinner cook. Apparently he was to start on a new medication and will need to be on blood thinners because of the medication. Subjective Pain Buttock: Pain Intensity: 6 Wound/Ulcer History When did wound start?: 10 plus years Mode of Arrival/ Rat Poisoner: Personal vehicle and Family Assistive Device Used [...] Itching Wound/Ulcer Sacrum: Bed Appearance: Beefy Red, [place] and Yellow Percent of Wound Bed Granulated/Red: 90 Percent of Devitalized: 10 Length (cm): 2.6 Width (cm): 1.5 Depth (cm): 2.9 CM Sq: 3.900 Undermining Position: 360 (deepest at 9) Undermining Depth: 4.5 Surrounding Tissue Appearance: Hyperpigmented Surrounding Tissue Temp: Warm Drainage Amount: Large Drainage Description: Serosanguineous Drainage Odor: No Odor Right Ischium: Bed Appearance: Beefy Red, Bone Palpable, [place] and Yellow Percent of Wound Bed Granulated/Red: 90 Percent of Devitalized: 10 Length (cm): 5 Width (cm): 7 Depth (cm): 3.5 CM Sq: 35.000 Undermining Position: 8-11 (deepest at 9) Undermining Depth: 3.7 Surrounding Tissue Appearance: Hyperpigmented Surrounding Tissue Temp: Warm Drainage Amount: Large Drainage Description: Serosanguineous Left Ischium: Bed Appearance: Beefy Red, [place] and Yellow Percent of Wound Bed Granulated/Red: [...] to start on new medications prescribed by dinner cook. Patient and were told to monitor for evidence of bleeding from the wounds. Follow-up in about 1 month. See Instructions for Orders See Instructions for Orders See Wound Discharge Instructions for Orders: Dictated By: Cathy Brar MD DD/ 1115 Signed By: 10/05/23 1120 [facility]02-15-2024 Telephone encounter Note* Telephone Encounter - Sandhya Velasquez RN - 05/13/2023 3:00 PM EST Patient called to inquire about the antibiotic that was supposed to be sent after his 05/06 visit. Can you resend? Thank you! [facility] [id number] Miscellaneous Notes* Telephone Encounter - Sandhya Velasquez RN - 05/13/2023 3:00 PM EST Patient called to inquire about the antibiotic that was supposed to be sent after his 05/06 visit. Can you resend? Thank you! documented in this encounterCox [id number] History of Present illness Narrative* Jonathan Moffett [...] go to wound care at [facility] Patient also has Integra wound [...] on previous visit in awaits MRI at [facility] . Referral has been sent to [facility] wound center with attempt [...] region for possible osteomyelitis to fibula at [facility] ASSESSMENT 12 weeks s/p left 4th and 5th ray amputation with incision and drainage and partial closure with single lobe flap Type 2 diabetic with paraplegia 1. Ulcer of left ankle, with necrosis of bone (HCC) (CMS/HCC) 2. Diabetes mellitus due to underlying condition with diabetic polyneuropathy, unspecified whether termite inspector insulin use (CMS/HCC) 3. Acute complete [...] antibiotics Patient to follow up with [facility] for decubitus ulcer and instructions given to contact [facility] for follow-up.. Skin flap area of ulceration [...] MRI Jonathan Moffett DPM documented in this encounterCox [id number] Progress note Author Cathy Brar [facility] May 04, 2023 1:07pmNote Date/TimeFebruary 2023 12:48pm[place] [address] Wound Center Provider Note Signed Patient: Ganga Stinson MR#: [id number] : 1960 Acct:[id number] Age/Sex: 62 / M Copies to: MD [...] Patient denies other new medical problems. Last [id number] was 7.2 he states. Patient denies any new medical problems. His sacral and right ischial ulcer show pink and red granulation tissue. There is no exposed bone or purulent drainage. The left ischial ulcer is very small. Subjective Pain Bilateral Buttock: Pain Intensity: 0 Right Foot: Pain Intensity: 0 Wound/Ulcer History When did wound start?: years Mode of Arrival/ Rat Poisoner: Personal vehicle Assistive Device Used Today: Wheelchair [...] Itching Wound/Ulcer Right Lateral Ankle: Bed Appearance: [place] and Yellow Percent of Wound Bed Granulated/Red: [...] No Odor Right Medial Foot: Bed Appearance: [place] and Yellow Percent of Wound Bed Granulated/Red: 50 Percent of Devitalized: 50 Length (cm): 1.0 Width (cm): 1.0 Depth (cm): 0.3 CM Sq: 1.000 Surrounding Tissue Appearance: Hyperpigmented Surrounding Tissue Temp: Warm Drainage Amount: Moderate Drainage Description: Serosanguineous Drainage Odor: No Odor Sacrum: Bed Appearance: Beefy Red, [place] and Yellow Percent of Wound Bed Granulated/Red: 90 Percent of Devitalized: 10 Length (cm): 2.9 Width (cm): 1.5 Depth (cm): 2.5 CM Sq: 4.350 Undermining Position: 360 deepest at 9:00 Undermining Depth: 4.0 Surrounding Tissue Appearance: Hyperpigmented, Macerated and Callous Surrounding Tissue Temp: Warm Drainage Amount: Large Drainage Description: Serosanguineous Drainage Odor: No Odor Right Ischium: Bed Appearance: Beefy Red, [place] and Yellow Percent of Wound Bed Granulated/Red: 90 Percent of Devitalized: 10 Length (cm): 5.3 Width (cm): 7.5 Depth (cm): 4.0 CM Sq: 39.750 Surrounding Tissue Appearance: [place], Macerated and Callous Surrounding Tissue Temp: Warm Drainage Amount: Large Drainage Description: Serosanguineous Drainage Odor: No Odor Left Ischium: Bed Appearance: Beefy Red and [place] Percent of Wound Bed Granulated/Red: 100 Percent [...] underlying condition with diabetic neuropathy,unspecified; Z79.4 - custodial (current) use of insulin (5) Foot ulcer [...] signed by MD Cathy Brar> 05/04/23 1307 [facility] Work Phone: 1(454) 277-330908-14-2023 Hospital Discharge instructions Patient Education 11/09/2022 14:08:53 [...] Follow these instructions at home: Medicines Take aqns-pfe-wixtkrt and prescription medicines only as told by [...] provider. Document Revised: 12/04/2020 Document Reviewed: 12/04/2020 YASSSU Patient Education 2022 [employer]. Follow Up Care 10/13/2022 11:18:02 With:ALLEN NAZARIO, Jovanny Christie, URL Address: [facility] [address] , [place] [address]- [phone] When: Unknown Comments:sched cysto [facility] 03-31-2023 History of Present illness Narrative* [...] 06/26/2022 12:01 PM EDT Physical Therapy Facility/Department: [facility] Daily Treatment Note NAME: [...] 06/26/2022 12:00 PM EDT Occupational Therapy Facility/Department: [facility] Daily Treatment Note NAME: [...] 06/26/2022 9:35 AM EDT [facility] [...] Crockett RN - 06/26/2022 3:00 AM EDT Fudge Candy Maker at bedside for wound dressing change- pt incontinent of bowels. See flow sheet for details. * Panchito Crockett RN - 06/26/2022 1:30 AM EDT Pt incontinent of stool. Fudge Candy Maker at bedside for wound change dressing per order- see flow sheet for details. * Panchito Crockett RN - 06/26/2022 12:50 AM EDT Patient at bedside for reassessment and vitals- see flow sheet for details. Pt remains alert and oriented c4-calm and cooperative. GoLYTELY at bedside and tech writer encourages patient to consume fluid- pt validates understanding. Patient currently denying pain and discomfort. Denying any additional needs, call light placed within reach, bed in lowest position. Fudge Candy Maker encourages patient to call out for assistance. Will continue to monitor. * Panchito Crockett RN - 06/26/2022 12:45 AM EDT Fudge Candy Maker at bedside- pt incontinent of stool- wound dressing changed per order. See flow sheet. * Panchito Crockett RN - 06/25/2022 10:05 PM EDT Fudge Candy Maker at bedside to for wound dressing change per order. See MAR for details. * Eloise Lopez PTA - 06/25/2022 3:56 PM EDT Physical Therapy Facility/Department: [facility] Daily Treatment Note NAME: [...] bed. Supine BLE PROM exercises in all [id number] ea. Seated EOB AROM in LAQ 2x [...] never been a smoker. He saw a corporate communications associate at [facility] 2 years ago in 2020. [...] He follows with wound clinic at [facility]. Mr. Stinson also denied any current or recent chest pain, abdominal pain, bleeding problems, problems with his medications or any other concerns at this time. Past Medical History: Diagnosis Date Abnormal EKG 06/23/2022 Acute kidney injury superimposed on CKD (HCC) 06/23/2022 Cauda equina syndrome ([facility]) 2003 Depression Hypertension MRSA (methicillin resistant staph aureus) culture positive 04/10/2017 right ankle Open wound of right ankle 12/30/2016 Paralysis of both lower limbs ([facility]) Paraplegia ([facility]) Type II or unspecified type diabetes mellitus without mention of complication, not stated as uncontrolled Unspecified sleep apnea CURRENT ALLERGIES: Vancomycin REVIEW OF SYSTEMS: 14 systems were reviewed. Pertinent positives and negatives as above, all else negative. Past Surgical History: Procedure Laterality Date APPENDECTOMY BACK SURGERY X2 OTHER SURGICAL HISTORY Right 04/10/2017 I&D rt foot/leg wounds MS I&D BELOW FASCIA FOOT 1 BURSAL SPACE Right 12/25/2016 FOOT DEBRIDEMENT INCISION AND DRAINAGE, 5TH DIGIT, PARTIAL AMB. PLACEMENT OF ANTIBOTIC BEADS performed by Gabriel Haile DPM at [facility] OR MS I&D BELOW FASCIA FOOT 1 BURSAL SPACE Right 04/10/2017 RIGHT ANKLE AND RIGHT HEEL DEBRIDEMENT INCISION AND DRAINAGE WITH CULTURES SENT performed by William Jimenez MD at [facility] OR MS OFFICE/OUTPT VISIT,PROCEDURE ONLY Right 06/14/2017 FOOT DEBRIDEMENT INCISION AND DRAINAGE-ANKLE INCLUDING BONE BIOPSY performed by Justin Husseint [facility] OR TOE AMPUTATION Right 12/25/2016 right fifth toe amputation with I&D, ATB beads per Dr. Haile [employer] [place] filter Social History: Social History Tobacco Use [...] Pressure injury of right ankle, stage 4 ([facility]) 06/24/2022 Open wound of right ankle 12/30/2016 Mixed hyperlipidemia 04/25/2015 Hyponatremia 04/25/2015 Diabetes mellitus ([facility]) 07/02/2011 Paraplegia ([facility]) 03/12/2011 MSSA (methicillin susceptible Staphylococcus aureus) infection 05/28/2017 Bacterial infection 02/17/2017 Enterococcus faecalis infection 12/28/2016 Skin ulcer of right heel with fat layer exposed ([facility]) 09/02/2016 Skin ulcer of right 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 ([facility]) 04/25/2015 Decubitus ulcer of coccygeal [...] Active Cardiac Condition No (decompensated HF, Arrhythmia, [place] <3 weeks, severe valve disease) Risk Level [...] with the plan. Sincerely, Zoila Villafuerte PA-C [facility] Veterinary Technologist [address] [place], [place] [id number] , I believe that the risk of [...] Paralysis of both lower limbs (HCC) Paraplegia ([facility]) Type II or unspecified type diabetes mellitus without mention of complication, not stated as uncontrolled Unspecified sleep apnea Past Surgical History: Procedure Laterality Date APPENDECTOMY BACK SURGERY X2 OTHER SURGICAL HISTORY Right 04/10/2017 I&D rt foot/leg wounds MS I&D BELOW FASCIA FOOT 1 BURSAL SPACE Right 12/25/2016 FOOT DEBRIDEMENT INCISION AND DRAINAGE, 5TH DIGIT, PARTIAL AMB. PLACEMENT OF ANTIBOTIC BEADS performed by Gabriel Haile DPM at [facility] OR MS I&D BELOW FASCIA FOOT 1 BURSAL SPACE Right 04/10/2017 RIGHT ANKLE AND RIGHT HEEL DEBRIDEMENT INCISION AND DRAINAGE WITH CULTURES SENT performed by William Jimenez MD at [facility] OR MS OFFICE/OUTPT VISIT,PROCEDURE ONLY Right 06/14/2017 FOOT DEBRIDEMENT INCISION AND DRAINAGE-ANKLE INCLUDING BONE BIOPSY performed by Justin Husseint [facility] OR TOE AMPUTATION Right 12/25/2016 right fifth toe amputation with I&D, ATB beads per Dr. Haile [employer] [place] filter Allergies Allergen Reactions Vancomycin States had [...] Matias Garcia MD, 5,000 Units at 06/23/22 3835 PE: VSS, Afebrile, NAD, A&O x 3, Aloof Labs: as above RLE ; lateral ankle ; FT+ ulcerative wound , +PTB IMP: stage 4 ankle decubitus, appaarent bone involvement Stable for minor bedside procedure Tx: see procedure notes P: see orders / AVS Yakov Min DPM 06/25/2022 12:28 PM * LAURENT Gomez - 06/25/2022 11:55 AM EDT Occupational Therapy Facility/Department: [facility] Daily Treatment Note NAME: [...] MD 8:05 AM 06/25/2022 * Shelly Mondragon, BASE FILLER - BACK LINE COOK - 06/25/2022 7:34 AM EDT Images from [...] labs-Hgb 7.6 today Nutrition status: morbid obesity Pallet Stone Positioner consult initiated Hospital Prophylaxis: DVT: Heparin Stress [...] the patient's medical record. [DOES NOT SATISFY [facility] PERFORMANCE] Shelly Mondragon APRN - DOLLY , MARIFER [facility]CCABE-C Hospitalist Medicine 06/25/2022, 7:34 AM Shelly Mondragon APRN-DOLLY Associated attestation - Matias Garcia MD - 06/25/2022 7:34 PM EDT Images from the original note were not included. [address], [address] Attestation Patient: Ganga Evans Alloway Date of Admission: 06/22/2022 4:21 PM Hospital Day # 3 Date of Evaluation: 06/25/2022 I personally evaluated and examined the patient [id number] in conjunction with the PA/FACILITY MAINTENANCE WORKER and agree with the management and dispostition of the patient. Please see the PA/FACILITY MAINTENANCE WORKER's note for full details.My kohli findings [...] with the plan as outlined in the FACILITY MAINTENANCE WORKER/PA's note Disposition: Discharge plan is pending Please note that this chart was generated using voice recognition [employer] dictation software. Although every effort was made to ensure the accuracy of this automated pattern room attendant, some errors in pattern room attendant may have occurred. Matias Garcia MD 06/25/2022 [...] Samayoa RN - 06/25/2022 12:52 AM EDT Fudge Candy Maker at bedside at this time to [...] Samayoa RN - 06/24/2022 6:43 PM EDT Fudge Candy Maker at bedside at this time to [...] 06/24/2022 4:57 PM EDT Physical Therapy Facility/Department: [facility] Daily Treatment Note NAME: [...] Time Out 1643 Minutes 19 Martita Tam BENDING SHED WORKER * Heri Valdez RN - 06/24/2022 4:00 [...] never been a smoker. He saw a corporate communications associate at [facility] 2 years ago in 2020. [...] He follows with wound clinic at [facility]. Mr. Stinson also denied any current or [...] Paralysis of both lower limbs (HCC) Paraplegia ([facility]) Type II or unspecified type diabetes mellitus without mention of complication, not stated as uncontrolled Unspecified sleep apnea CURRENT ALLERGIES: Vancomycin REVIEW OF SYSTEMS: 14 systems were reviewed. Pertinent positives and negatives as above, all else negative. Past Surgical History: Procedure Laterality Date APPENDECTOMY BACK SURGERY X2 OTHER SURGICAL HISTORY Right 04/10/2017 I&D rt foot/leg wounds MS I&D BELOW FASCIA FOOT 1 BURSAL SPACE Right 12/25/2016 FOOT DEBRIDEMENT INCISION AND DRAINAGE, 5TH DIGIT, PARTIAL AMB. PLACEMENT OF ANTIBOTIC BEADS performed by Gabriel Haile DPM at [facility] OR MS I&D BELOW FASCIA FOOT 1 BURSAL SPACE Right 04/10/2017 RIGHT ANKLE AND RIGHT HEEL DEBRIDEMENT INCISION AND DRAINAGE WITH CULTURES SENT performed by William Jimenez MD at [facility] OR MS OFFICE/OUTPT VISIT,PROCEDURE ONLY Right 06/14/2017 FOOT DEBRIDEMENT INCISION AND DRAINAGE-ANKLE INCLUDING BONE BIOPSY performed by Enrique Hussein [facility] OR TOE AMPUTATION Right 12/25/2016 right fifth toe amputation with I&D, ATB beads per Dr. Haile [employer] FILTER PLACEMENT [place] filter Social History: Social History Tobacco Use [...] of right heel with fat layer exposed ([facility]) 09/02/2016 Skin ulcer of right 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 ([facility]) 04/25/2015 Decubitus ulcer of coccygeal region 07/19/2013 Cauda equina syndrome ([facility]) 12/09/2011 Open wound of knee, leg (except thigh), and ankle, complicated 02/25/2011 Acute kidney injury superimposed on CKD ([facility]) 06/23/2022 Abnormal EKG 06/23/2022 Neurogenic bladder 06/23/2022 Hyperkalemia 06/22/2022 Osteomyelitis of ankle or foot, right, acute ([facility]) Decubitus ulcer of coccygeal region, stage 4 ([facility]) 04/09/2017 Cellulitis 04/08/2017 Morbid obesity due to excess calories ([facility]) 01/01/2017 Acute on chronic renal failure ([facility]) 12/30/2016 Osteomyelitis of right foot ([facility]) Hypertension Depression PLAN: Abnormal EKG [...] with the plan. Sincerely, Zoila Villafuerte PA-C [facility] Veterinary Technologist [address] [place], [place] [id number] , I believe that the risk of [...] 06/24/2022 10:32 AM EDT Occupational Therapy Facility/Department: [facility] Daily Treatment Note NAME: [...] Bed Mobility Training: (positioned on side for [employer] to complete ultrasound at end of session) [...] [facility] * Shelly Mondragon, BASE FILLER - BACK LINE COOK - 06/24/2022 7:34 AM EDT Images from [...] IRon Monitor labs Nutrition status: morbid obesity Pallet Stone Positioner consult initiated Hospital Prophylaxis: DVT: Heparin Stress Ulcer: na Disposition: Shared decision making: All test results, treatment options and disposition options were discussed with the patient today Social determinants of health that may impact management: none Code status: Full Code Disposition: Discharge plan is home [facility] Advanced Care Planning documentation: [x] I [...] the patient's medical record. [DOES NOT SATISFY [facility] PERFORMANCE] Shelly Mondragon, BASE FILLER - BACK LINE COOK , BASE FILLER, FACILITY MAINTENANCE WORKER-C Hospitalist Medicine 06/24/2022, 7:34 AM Blood [...] from the original note were not included. [address], [address] Attestation Patient: Ganga Stinson Date of Admission: 06/22/2022 4:21 PM Hospital Day # 2 Date of Evaluation: 06/24/2022 I personally evaluated and examined the patient [id number] in conjunction with the PA/FACILITY MAINTENANCE WORKER and agree with the management and dispostition of the patient. Please see the PA/FACILITY MAINTENANCE WORKER's note for full details.My kohli findings [...] with the plan as outlined in the FACILITY MAINTENANCE WORKER/PA's note Disposition: Discharge plan is pending, GI, Cardiology, Urology consultations, Transfuse if pRBC <7, wound care to the affected area and monitor electrolytes. Please note that this chart was generated using voice recognition [employer] dictation software. Although every effort was made to ensure the accuracy of this automated pattern room attendant, some errors in pattern room attendant may have occurred. Matias Garcia MD 06/24/2022 9:39 PM * Geneva Samayoa RN - 06/24/2022 2:46 AM EDT Spoke with Dr. Garcia and informed him of critical lab levels. No new orders. * Geneva Samayoa RN - 06/24/2022 2:15 AM EDT Fudge Candy Maker at bedside at this time to [...] this time and patient transferred over to [facility]. * Geneva Samayoa RN - 06/23/2022 9:00 PM EDT Fudge Candy Maker at bedside at this time to [...] 06/23/2022 4:35 PM EDT Physical Therapy Facility/Department: [facility] Daily Treatment Note NAME: [...] 06/23/2022 4:31 PM EDT Occupational Therapy Facility/Department: [facility] Daily Treatment Note NAME: [...] 06/23/2022 2:08 PM EDT Physical Therapy Facility/Department: [facility] Physical Therapy Initial Assessment [...] Ambulation Assistance: Non-ambulatory Transfer Assistance: Independent Active Gasoline Locomotive Crane Operator: No Additional Comments: Pt. with hx [...] 06/23/2022 11:26 AM EDT Occupational Therapy Facility/Department: [facility] Occupational Therapy Initial Assessment [...] Ambulation Assistance: Non-ambulatory Transfer Assistance: Independent Active Gasoline Locomotive Crane Operator: No Additional Comments: Pt. with hx [...] to Severe Extremities (+ 2 pitting BLE) Scientific Process Operator Strength: Not Performed Nutrition Assessment: Altered [...] Anthropometric Measures: Height: 5' 11 (180.3 cm) Happy Body Weight (IBW): 172 lbs (78 kg) [...] Used for Energy Requirements: Current Energy (kcal/day): 8606-1182 (20-23/kg) Weight Used for Protein Requirements: Happy Protein (g/day): 109-133g (1.4-1.7g/kg) Method Used for [...] Nutrition Supplement [address], LD Contact: [id number] * Panchito Crockett RN - 06/23/2022 1:00 AM EDT Fudge Candy Maker at bedside for reassessment-see flow sheet for details. Patient remains alert and oriented x4-calm and cooperative. Patient continues to deny pain and discomfort. Incontinence and stewart care provided. Denying any additional needs, call light placed within reach, bed in lowest position and alarm engaged to promote patient safety. Will continue to monitor. * Panchito Crockett RN - 06/23/2022 12:00 AM EDT Fudge Candy Maker attempted to place rowe catheter at this time- unable to advance 16 FR catheter. Rn Human Resources Benefits Assistant notified and will attempt- will continue to monitor. Patient reports no pain or discomfort. * Panchito Crockett RN - 06/22/2022 11:12 PM EDT Fudge Candy Maker phoned Dr. Garcia at this informing [...] Will continue to monitor. documented [facility] [employer] Work Phone: [phone]) 483-798803-31-2023 Hospital Discharge instructions* Discharge Instructions* Fabby Felder [...] at most local grocery stores, pharmacies, and [employer]. If you have any questions about your diet or nutrition, call the hospital and ask for the dietitian. Regular documented in this encounterB[facility] [employer] Phone: 1(106) 107-659603-07-2023 Progress note Author Cathy Brar [facility] June 02, 2022 12:14pmNote Date/TimeMar2022 12:14pm[place] [address] Wound Center Provider Note Signed Patient: Ganga Stinson MR#: [id number] : 1960 Acct:[id number] Age/Sex: 61 / M Copies to: MD Fidel Whitmore MD~ HPI Date of Visit Date of Visit: Date of Service: 06/02/2022 Time of Service: 12:01 Narrative HPI: Patient is being followed for his chronic bilateral ischial, sacral and right foot ulcers. His wifeis doing his dressing changes. Patient has been having some right hip pain and underwent a CT scan in [place] on 03/14/2022. Thisshowed slight deepening of the [...] fever(s) Integumentary/Breasts Skin/Breast: Reports wounds [facility] Medical History (Updated 06/02/22 @ [...] Sacrum: Bed Appearance: Beefy Red, Bone Palpable, [place] and Yellow Percent of Wound Bed Granulated/Red: 90 Percent of Devitalized: 10 Length (cm): 3.5 Width (cm): 1.8 Depth (cm): 2 CM Sq: 6.300 Undermining Position: 360 Undermining Depth: 3 Surrounding Tissue Appearance: [place] Surrounding Tissue Temp: Warm Drainage Amount: Large Drainage Description: Serosanguineous Drainage Odor: No Odor Left Ischium: Bed Appearance: Beefy Red, Bone Palpable, [place] and Yellow Percent of Wound Bed Granulated/Red: 90 Percent of Devitalized: 10 Length (cm): 7 Width (cm): 6 Depth (cm): 5.5 CM Sq: 42.000 Surrounding Tissue Appearance: [place] Surrounding Tissue Temp: Warm Drainage Amount: Large Drainage Description: Serosanguineous Drainage Odor: No Odor Right Ischium: Bed Appearance: Beefy Red, Bone Palpable, [place] and Yellow Percent of Wound Bed Granulated/Red: 90 Percent of Devitalized: 10 Length (cm): 0.7 Width (cm): 1 Depth (cm): 4 CM Sq: 0.700 Surrounding Tissue Appearance: [place] Surrounding Tissue Temp: Warm Drainage Amount: Moderate Drainage Description: Serosanguineous Drainage Odor: No Odor Left Ankle: Bed Appearance: Brown, [place] and Yellow Percent of Wound Bed Granulated/Red: 5 Percent of Devitalized: 95 Length (cm): 3.5 Width (cm): 2.5 Depth (cm): 0.1 CM Sq: 8.750 Surrounding Tissue Appearance: [place] Surrounding Tissue Temp: Warm Drainage Amount: Moderate Drainage Description: Serosanguineous Drainage Odor: No Odor Medial Ankle: Bed Appearance: Brown, [place] and Yellow Percent of Wound Bed Granulated/Red: 50 Percent of Devitalized: 50 Length (cm): 3.5 Width (cm): 4 Depth (cm): 0.1 CM Sq: 14.000 Surrounding Tissue Appearance: [place] Surrounding Tissue Temp: Warm Drainage Amount: Moderate Drainage Description: Serosanguineous Drainage Odor: No Odor Medial Foot: Bed Appearance: Black Dry, Brown, [place] and Hardware Percent of Wound Bed Granulated/Red: 5 Percent of Devitalized: 95 Length (cm): 2 Width (cm): 1.2 Depth (cm): 0.1 CM Sq: 2.400 Surrounding Tissue Appearance: [place] Surrounding Tissue Temp: Warm Drainage Amount: Moderate [...] Diabetes mellitus type: type 2 Diabetes mellitus termite inspector insulin use:with termite inspector use Diabetes mellitus complication status: with [...] signed by MD Cathy Brar> 06/02/22 [address] [facility] Work Phone: 1(177) 389-100512-06-2022 Progress note Author Cathy Brar [facility] March 03, 2022 12:06pmNote Date/TimeDece2021 12:06pmMin[place] [address] Wound Center Provider Note Signed Patient: Ganga Stinson MR#: [id number] : 1960 Acct:[id number] Age/Sex: 61 / M Copies to: MD [...] Ischium: Bed Appearance: Beefy Red, Bone Palpable, [place] and Yellow Percent of Wound Bed Granulated/Red: [...] Bed Appearance: Beefy Red, Bone Palpable, Devitalized, [place], Yellow and Rolled Edges Percent of Wound Bed Granulated/Red: 50 Percent of Devitalized: 50 Length (cm): 0.7 Width (cm): 0.8 Depth (cm): 4.0 CM Sq: 0.560 Undermining Position: 0 Undermining Depth: 0 Surrounding Tissue Appearance: Macerated and Rolled [place]ges Surrounding Tissue Temp: Warm Drainage Amount: Moderate Drainage Description: Serosanguineous Drainage Odor: No Odor Lidocaine Applied Topically: 2% Jelly Right Buttock: Bed Appearance: Devitalized, [place] and Yellow Percent of Wound Bed Granulated/Red: 100 Percent of Devitalized: 0 Length (cm): 0 Width (cm): 0 Depth (cm): 0 CM Sq: 0.000 Surrounding Tissue Appearance: Hyperpigmented Surrounding Tissue Temp: Warm Drainage Amount: None Drainage Description: Serosanguineous Drainage Odor: No Odor Lidocaine Applied Topically: 2% Jelly Right Lower Medial Leg: Bed Appearance: [place] and Yellow Percent of Wound Bed Granulated/Red: [...] Diabetes mellitus type: type 2 Diabetes mellitus nursing home insulin use:with nursing home use Diabetes mellitus complication status: with [...] signed by MD Cathy Brar> 03/03/22 [address] [facility] Work Phone: 1(310) 325-169012-02-2022 NotePROCEDURE: XR HIP RT 2 3V W [...] authenticated by: KHADAR MEDINA Date: 2022-02-27 07:17[facility]11-01-2022 Progress note Author Cathy Brar [facility] January 27, 2022 12:11pmNote Date/TimeNov2021 12:11pmMin[place] [address] Wound Center Provider Note Signed Patient: Ganga Stinson MR#: [id number] : 1960 Acct:[id number] Age/Sex: 61 / M Copies to: MD [...] 360 Undermining Depth: 3.5 Surrounding Tissue Appearance: [place] and Rolled Edges Surrounding Tissue Temp: Warm Drainage Amount: Large Drainage Description: Serosanguineous Drainage Odor: No Odor Lidocaine Applied Topically: 2% Jelly Right Heel: Bed Appearance: Beefy Red, [place] and Yellow Percent of Wound Bed Granulated/Red: 50 Percent of Devitalized: 50 Length (cm): 1.0 Width (cm): 1.4 Depth (cm): 0.1 CM Sq: 1.400 Surrounding Tissue Appearance: Peeling and Dryness Surrounding Tissue Temp: Warm Drainage Amount: Small Drainage Description: Serosanguineous Drainage Odor: No Odor Lidocaine Applied Topically: 2% Jelly Right Ischium: Bed Appearance: Beefy Red, Bone Palpable, [place] and Yellow Percent of Wound Bed Granulated/Red: [...] Bed Appearance: Beefy Red, Bone Palpable, Devitalized, [place], Yellow and Rolled Edges Percent of Wound Bed Granulated/Red: 50 Percent of Devitalized: 50 Length (cm): 1.5 Width (cm): 1.0 Depth (cm): 4.0 CM Sq: 1.500 Undermining Position: 10-3:00 Undermining Depth: 3.5 Surrounding Tissue Appearance: Macerated and Rolled Edges Surrounding Tissue Temp: Warm Drainage Amount: Moderate Drainage Description: Serosanguineous Drainage Odor: No Odor Lidocaine Applied Topically: 2% Jelly Right Buttock: Bed Appearance: Devitalized, [place] and Yellow Percent of Wound Bed Granulated/Red: 100 Percent of Devitalized: 0 Length (cm): 0 Width (cm): 0 Depth (cm): 0 CM Sq: 0.000 Surrounding Tissue Appearance: [place] Surrounding Tissue Temp: Warm Drainage Amount: None Drainage Description: Serosanguineous Drainage Odor: No Odor Lidocaine Applied Topically: 2% Jelly Right Lower Medial Leg: Bed Appearance: [place] and Yellow Percent of Wound Bed Granulated/Red: [...] Diabetes mellitus type: type 2 Diabetes mellitus nursing home insulin use:with termite inspector use Diabetes mellitus complication status: with skin complications Diabetes mellitus complication detail: with other skin ulcer Qualified Code(s): E11.622 - Type 2 diabetes mellitus with other skin ulcer; Z79.4 - custodial (current) use of insulin Code(s): E11.9 - [...] signed by MD Cathy Brar> 01/27/22 [address] [facility] Work Phone: 1(659) 964-147209-27-2022 Progress note Author Cathy Brar [facility] December 23, 2021 12:32pmNote Date/TimeSeptember 2021 12:32pmMin[place] [address] Wound Center Provider Note Signed Patient: Ganga Stinson MR#: [id number] : 1960 Acct:[id number] Age/Sex: 61 / M Copies to: MD [...] Bed Appearance: Beefy Red, Bone Palpable, Devitalized, [place] and Yellow Percent of Wound Bed Granulated/Red: 95 Percent of Devitalized: 5 Length (cm): 3.2 Width (cm): 2 Depth (cm): 2.5 CM Sq: 6.400 Undermining Position: 10-4:00 Undermining Depth: 5 Surrounding Tissue Appearance: [place] and Macerated Surrounding Tissue Temp: Warm Drainage Amount: Large Drainage Description: Serosanguineous Drainage Odor: No Odor Lidocaine Applied Topically: 2% Jelly Right Heel: Bed Appearance: Beefy Red, Devitalized, Epithelial Tissue or Bridge, [place] and Yellow Percent of Wound Bed Granulated/Red: 90 Percent of Devitalized: 10 Length (cm): 3 Width (cm): 8 Depth (cm): 0.1 CM Sq: 24.000 Surrounding Tissue Appearance: Peeling and Dryness Surrounding Tissue Temp: Warm Drainage Amount: Large Drainage Description: Serosanguineous Drainage Odor: No Odor Lidocaine Applied Topically: 2% Jelly Right Ischium: Bed Appearance: Beefy Red, Bone Palpable, Devitalized, Epithelial Tissue or Bridge, [place] and Yellow Percent of Wound Bed Granulated/Red: 95 Percent of Devitalized: 5 Length (cm): 5 Width (cm): 5 Depth (cm): 5 CM Sq: 25.000 Undermining Position: 12-6:00 Undermining Depth: 1 Surrounding Tissue Appearance: Macerated Surrounding Tissue Temp: Warm Drainage Amount: Large Drainage Description: Serosanguineous Drainage Odor: No Odor Lidocaine Applied Topically: 2% Jelly Left Ischium: Bed Appearance: Beefy Red, Bone Palpable, Devitalized, [place] and Yellow Percent of Wound Bed Granulated/Red: 95 Percent of Devitalized: 5 Length (cm): 1.6 Width (cm): 1.6 Depth (cm): 3.5 CM Sq: 2.560 Undermining Position: 10-3:00 Undermining Depth: 3.5 Surrounding Tissue Appearance: Macerated Surrounding Tissue Temp: Warm Drainage Amount: Moderate Drainage Description: Serosanguineous Drainage Odor: No Odor Lidocaine Applied Topically: 2% Jelly Right Buttock: Bed Appearance: Devitalized, [place] and Yellow Percent of Wound Bed Granulated/Red: 95 Percent of Devitalized: 5 Length (cm): 1.5 Width (cm): 0.5 Depth (cm): 0.1 CM Sq: 0.750 Surrounding Tissue Appearance: [place] and Callous Surrounding Tissue Temp: Warm Drainage Amount: Small Drainage Description: Serosanguineous Drainage Odor: No Odor Lidocaine Applied Topically: 2% Jelly Right Lower Lateral Leg: Bed Appearance: Beefy Red, Devitalized, [place] and Yellow Percent of Wound Bed Granulated/Red: 10 Percent of Devitalized: 90 Length (cm): 0 Width (cm): 0 Depth (cm): 0 CM Sq: 0.000 Surrounding Tissue Appearance: Hyperpigmented Surrounding Tissue Temp: Warm Drainage Amount: None Drainage Description: Serosanguineous Drainage Odor: No Odor Lidocaine Applied Topically: 2% Jelly Right Lower Medial Leg: Bed Appearance: Devitalized, Epithelial Tissue or Bridge, [place] and Yellow Percent of Wound Bed Granulated/Red: [...] Diabetes mellitus type: type 2 Diabetes mellitus nursing home insulin use:with termite inspector use Diabetes mellitus complication status: with skin complications Diabetes mellitus complication detail: with other skin ulcer Qualified Code(s): E11.622 - Type 2 diabetes mellitus with other skin ulcer; Z79.4 - custodial (current) use of insulin Code(s): E11.9 - [...] signed by MD Cathy Brar> 12/23/21 [address] [facility] Work Phone: 1(934) 931-433808-23-2022 Progress note Author Cathy Brar [facility] November 18, 2021 11:55amNote Date/TimeAugust 2021 11:55am[place] [address] Wound Center Provider Note Signed Patient: Ganga Stinson MR#: [id number] : 1960 Acct:[id number] Age/Sex: 61 / M Copies to: MD [...] Bed Appearance: Beefy Red, Bone Palpable, Devitalized, [place] and Yellow Percent of Wound Bed Granulated/Red: 75 Percent of Devitalized: 25 Length (cm): 3.5 Width (cm): 2.0 Depth (cm): 2.5 CM Sq: 7.000 Undermining Position: 360 (deepest at 3) Undermining Depth: 3.5 Surrounding Tissue Appearance: Hyperpigmented Surrounding Tissue Temp: Warm Drainage Amount: Large Drainage Description: Serosanguineous Drainage Odor: No Odor Lidocaine Applied Topically: 2% Jelly Right Heel: Bed Appearance: Devitalized, [place] and Yellow Percent of Wound Bed Granulated/Red: 1 Percent of Devitalized: 99 Length (cm): 1.6 Width (cm): 2.3 Depth (cm): 0.1 CM Sq: 3.680 Surrounding Tissue Appearance: Hyperpigmented Surrounding Tissue Temp: Warm Drainage Amount: Large Drainage Description: Serosanguineous Drainage Odor: No Odor Lidocaine Applied Topically: 2% Jelly Right Ischium: Bed Appearance: Beefy Red, Bone Palpable, Devitalized, Epithelial Tissue or Bridge, [place] and Yellow Percent of Wound Bed Granulated/Red: [...] Bed Appearance: Beefy Red, Bone Palpable, Devitalized, [place] and Yellow Percent of Wound Bed Granulated/Red: 90 Percent of Devitalized: 10 Length (cm): 2.0 Width (cm): 2.0 Depth (cm): 3.5 CM Sq: 4.000 Undermining Position: 9-11:00 Undermining Depth: 4.0 Surrounding Tissue Appearance: Hyperpigmented Surrounding Tissue Temp: Warm Drainage Amount: Moderate Drainage Description: Serosanguineous Drainage Odor: No Odor Lidocaine Applied Topically: 2% Jelly Right Buttock: Bed Appearance: Beefy Red, Devitalized, [place] and Yellow Percent of Wound Bed Granulated/Red: 95 Percent of Devitalized: 5 Length (cm): 2.4 Width (cm): 1.0 Depth (cm): 0.1 CM Sq: 2.400 Surrounding Tissue Appearance: Hyperpigmented Surrounding Tissue Temp: Warm Drainage Amount: Moderate Drainage Description: Serosanguineous Drainage Odor: No Odor Lidocaine Applied Topically: 2% Jelly Right Lower Lateral Leg: Bed Appearance: Beefy Red, Devitalized, [place] and Yellow Percent of Wound Bed Granulated/Red: 10 Percent of Devitalized: 90 Length (cm): 1.3 Width (cm): 1.4 Depth (cm): 0.1 CM Sq: 1.820 Surrounding Tissue Appearance: Hyperpigmented Surrounding Tissue Temp: Warm Drainage Amount: Moderate Drainage Description: Serosanguineous Drainage Odor: No Odor Lidocaine Applied Topically: 2% Jelly Right Lower Medial Leg: Bed Appearance: Black Dry, Devitalized, Epithelial Tissue or Bridge, [place] and Yellow Percent of Wound Bed Granulated/Red: [...] Diabetes mellitus type: type 2 Diabetes mellitus nursing home insulin use:with nursing home use Diabetes mellitus complication status: with [...] signed by MD Cathy Brar> 11/18/21 [address] [facility] Work Phone: 1(874) 476-261407-26-2022 Progress note Author Cathy Brar [facility] October 21, 2021 11:44amNote Date/TimeJuly 2021 11:44[place] [address] Wound Center Provider Note Signed Patient: Ganga Stinson MR#: [id number] : 1960 Acct:[id number] Age/Sex: 61 / M Copies to: MD [...] Bed Appearance: Beefy Red, Bone Palpable, Devitalized, [place] and Yellow Percent of Wound Bed Granulated/Red: 75 Percent of Devitalized: 25 Length (cm): 4.2 Width (cm): 3.0 Depth (cm): 3.0 CM Sq: 12.600 Undermining Position: 360 (deepest at 3) Undermining Depth: 3.5 Surrounding Tissue Appearance: Hyperpigmented Surrounding Tissue Temp: Warm Drainage Amount: Large Drainage Description: Serosanguineous Drainage Odor: No Odor Lidocaine Applied Topically: 2% Jelly Right Heel: Bed Appearance: Devitalized, [place] and Yellow Percent of Wound Bed Granulated/Red: 50 Percent of Devitalized: 50 Length (cm): 2.3 Width (cm): 3.2 Depth (cm): 0.1 CM Sq: 7.360 Surrounding Tissue Appearance: Hyperpigmented Surrounding Tissue Temp: Warm Drainage Amount: Large Drainage Description: Serosanguineous Drainage Odor: No Odor Lidocaine Applied Topically: 2% Jelly Right Ischium: Bed Appearance: Beefy Red, Bone Palpable, Devitalized, Epithelial Tissue or Bridge, [place] and Yellow Percent of Wound Bed Granulated/Red: [...] Bed Appearance: Beefy Red, Bone Palpable, Devitalized, [place] and Yellow Percent of Wound Bed Granulated/Red: 90 Percent of Devitalized: 10 Length (cm): 3.0 Width (cm): 1.6 Depth (cm): 4.5 CM Sq: 4.800 Undermining Position: 9-11:00 Undermining Depth: 1.0 Surrounding Tissue Appearance: Hyperpigmented Surrounding Tissue Temp: Warm Drainage Amount: Moderate Drainage Description: Serosanguineous Drainage Odor: No Odor Lidocaine Applied Topically: 2% Jelly Right Buttock: Bed Appearance: Beefy Red, Devitalized, [place] and Yellow Percent of Wound Bed Granulated/Red: 80 Percent of Devitalized: 20 Length (cm): 2.2 Width (cm): 1.1 Depth (cm): 0.1 CM Sq: 2.420 Surrounding Tissue Appearance: Hyperpigmented Surrounding Tissue Temp: Warm Drainage Amount: Moderate Drainage Description: Serosanguineous Drainage Odor: No Odor Lidocaine Applied Topically: 2% Jelly Right Lower Lateral Leg: Bed Appearance: Beefy Red, Devitalized, [place] and Yellow Percent of Wound Bed Granulated/Red: 10 Percent of Devitalized: 90 Length (cm): 1.3 Width (cm): 1.4 Depth (cm): 0.1 CM Sq: 1.820 Surrounding Tissue Appearance: Hyperpigmented Surrounding Tissue Temp: Warm Drainage Amount: Moderate Drainage Description: Serosanguineous Drainage Odor: No Odor Lidocaine Applied Topically: 2% Jelly Right Lower Medial Leg: Bed Appearance: Black Dry, Devitalized, [place] and Yellow Percent of Wound Bed Granulated/Red: 80 Percent of Devitalized: 20 Length (cm): 1.6 Width (cm): 2.5 Depth (cm): 0.1 CM Sq: 4.000 Surrounding Tissue Appearance: Hyperpigmented Surrounding Tissue Temp: Warm Drainage Amount: Moderate Drainage Description: Serosanguineous Drainage Odor: No Odor Lidocaine Applied Topically: 2% Jelly Right Foot: Bed Appearance: Beefy Red, Devitalized, Epithelial Tissue or Bridge, [place] and Yellow Percent of Wound Bed Granulated/Red: [...] Diabetes mellitus type: type 2 Diabetes mellitus termite inspector insulin use:with nursing home use Diabetes mellitus complication status: with skin complications Diabetes mellitus complication detail: with other skin ulcer Qualified Code(s): E11.622 - Type 2 diabetes mellitus with other skin ulcer; Z79.4 - custodial (current) use of insulin Code(s): E11.9 - [...] signed by MD Cathy Brar> 10/21/21 1144 [facility] Work Phone: 1(842) 889-859306-21-2022 Progress note Author Cathy Brar [facility] September 16, 2021 11:55amNote Date/TimeJune 2021 11:51am[place] [address] Wound Center Provider Note Signed Patient: Ganga Stinson MR#: [id number] : 1960 Acct:[id number] Age/Sex: 61 / M Copies to: MD [...] PRN 7 Days #28 tab 09/04/21 [Rx Curvurhjz76/21/22] Allergies vancomycin Allergy (Severe, Verified 09/04/21 09:28) Shut kidneys down Wound/Ulcer Sacrum: Bed Appearance: Bone Palpable, Devitalized, [place] and Yellow Percent of Wound Bed Granulated/Red: [...] Heel: Bed Appearance: Black Moist, Brown, Devitalized, [place] and Yellow Percent of Wound Bed Granulated/Red: 95 Percent of Devitalized: 5 Length (cm): 3.4 Width (cm): 5.1 Depth (cm): 0.1 CM Sq: 17.340 Surrounding Tissue Appearance: Hyperpigmented Surrounding Tissue Temp: Warm Drainage Amount: Large Drainage Description: Serosanguineous Drainage Odor: No Odor Lidocaine Applied Topically: 2% Jelly Right Ischium: Bed Appearance: Beefy Red, Devitalized, Epithelial Tissue or Bridge, [place] and Yellow Percent of Wound Bed Granulated/Red: 90 Percent of Devitalized: 10 Length (cm): 5.1 Width (cm): 5.5 Depth (cm): 4 CM Sq: 28.050 Undermining Position: 1-3:00 Undermining Depth: 1.5 Surrounding Tissue Appearance: Hyperpigmented Surrounding Tissue Temp: Warm Drainage Amount: Large Drainage Description: Serosanguineous Drainage Odor: No Odor Lidocaine Applied Topically: 2% Jelly Left Ischium: Bed Appearance: Beefy Red, Bone Palpable, Devitalized, [place] and Yellow Percent of Wound Bed Granulated/Red: 90 Percent of Devitalized: 10 Length (cm): 3.9 Width (cm): 1.8 Depth (cm): 5 CM Sq: 7.020 Undermining Position: 9-11:00 Undermining Depth: 2.2 Surrounding Tissue Appearance: Hyperpigmented Surrounding Tissue Temp: Warm Drainage Amount: Moderate Drainage Description: Serosanguineous Drainage Odor: No Odor Lidocaine Applied Topically: 2% Jelly Right Buttock: Bed Appearance: Beefy Red, Devitalized, [place] and Yellow Percent of Wound Bed Granulated/Red: 99 Percent of Devitalized: 1 Length (cm): 2.3 Width (cm): 0.9 Depth (cm): 0.2 CM Sq: 2.070 Surrounding Tissue Appearance: Hyperpigmented Surrounding Tissue Temp: Warm Drainage Amount: Moderate Drainage Description: Serosanguineous Drainage Odor: No Odor Lidocaine Applied Topically: 2% Jelly Right Lower Lateral Leg: Bed Appearance: Beefy Red, Devitalized, [place] and Yellow Percent of Wound Bed Granulated/Red: 20 Percent of Devitalized: 80 Length (cm): 3.8 Width (cm): 2.3 Depth (cm): 0.1 CM Sq: 8.740 Surrounding Tissue Appearance: Hyperpigmented Surrounding Tissue Temp: Warm Drainage Amount: Moderate Drainage Description: Serosanguineous Drainage Odor: No Odor Lidocaine Applied Topically: 2% Jelly Right Lower Medial Leg: Bed Appearance: Black Dry, Devitalized, [place] and Yellow Percent of Wound Bed Granulated/Red: 75 Percent of Devitalized: 25 Length (cm): 2.5 Width (cm): 2.7 Depth (cm): 0.2 CM Sq: 6.750 Surrounding Tissue Appearance: Hyperpigmented Surrounding Tissue Temp: Warm Drainage Amount: Moderate Drainage Description: Serosanguineous Drainage Odor: No Odor Lidocaine Applied Topically: 2% Jelly Right Foot: Bed Appearance: Beefy Red, Devitalized, Epithelial Tissue or Bridge, [place] and Yellow Percent of Wound Bed Granulated/Red: [...] Diabetes mellitus type: type 2 Diabetes mellitus termite inspector insulin use:with termite inspector use Diabetes mellitus complication status: with skin complications Diabetes mellitus complication detail: with other skin ulcer Qualified Code(s): E11.622 - Type 2 diabetes mellitus with other skin ulcer; Z79.4 - custodial (current) use of insulin Code(s): E11.9 - [...] signed by MD Cathy Brar> 09/16/21 115[address] [facility] Work Phone: 1(379) 181-685105-03-2022 Progress note Author Cathy Brar [facility] July 29, 2021 12:33pmNote Date/TimeMay 2021 12:33pm[place] [address] Wound Center Provider Note Signed Patient: Ganga Stinson MR#: [id number] : 1960 Acct:[id number] Age/Sex: 61 / M Copies to: MD [...] down Wound/Ulcer Sacrum: Bed Appearance: Bone Palpable, [place] and Yellow Percent of Wound Bed Granulated/Red: 50 Percent of Devitalized: 50 Length (cm): 2.6 Width (cm): 2.0 Depth (cm): 3.0 CM Sq: 5.200 Undermining Position: 9-4 (deepest at 4) Undermining Depth: 5.4 Surrounding Tissue Appearance: Hyperpigmented Surrounding Tissue Temp: Warm Drainage Amount: Large Drainage Description: Serosanguineous Drainage Odor: No Odor Lidocaine Applied Topically: 2% Jelly Right Heel: Bed Appearance: Black Moist, Brown, [place] and Yellow Percent of Wound Bed Granulated/Red: 15 Percent of Devitalized: 85 Length (cm): 6.0 Width (cm): 9.0 Depth (cm): 0.5 CM Sq: 54.000 Surrounding Tissue Appearance: Hyperpigmented Surrounding Tissue Temp: Warm Drainage Amount: Large Drainage Description: Serosanguineous Drainage Odor: No Odor Lidocaine Applied Topically: 2% Jelly Right Ischium: Bed Appearance: Beefy Red, Epithelial Tissue or Bridge, [place] and Yellow Percent of Wound Bed Granulated/Red: 50 Percent of Devitalized: 50 Length (cm): 9.3 Width (cm): 7.9 Depth (cm): 5.2 CM Sq: 73.470 Undermining Position: 360 (deepest at 7) Undermining Depth: 2.3 Surrounding Tissue Appearance: Hyperpigmented Surrounding Tissue Temp: Warm Drainage Amount: Large Drainage Description: Serosanguineous Drainage Odor: No Odor Lidocaine Applied Topically: 2% Jelly Left Ischium: Bed Appearance: [place] and Yellow Percent of Wound Bed Granulated/Red: 50 Percent of Devitalized: 50 Length (cm): 1.7 Width (cm): 1.5 Depth (cm): 3.5 CM Sq: 2.550 Undermining Position: 3-8 Undermining Depth: 4.5 Surrounding Tissue Appearance: Hyperpigmented Surrounding Tissue Temp: Warm Drainage Amount: Moderate Drainage Description: Serosanguineous Drainage Odor: No Odor Lidocaine Applied Topically: 2% Jelly Right Buttock: Bed Appearance: Beefy Red, [place] and Yellow Percent of Wound Bed Granulated/Red: 75 Percent of Devitalized: 25 Length (cm): 6.6 Width (cm): 2.0 Depth (cm): 0.1 CM Sq: 13.200 Surrounding Tissue Appearance: Hyperpigmented Surrounding Tissue Temp: Warm Drainage Amount: Moderate Drainage Description: Serosanguineous Drainage Odor: No Odor Lidocaine Applied Topically: 2% Jelly Right Lower Lateral Leg: Bed Appearance: Beefy Red, [place] and Yellow Percent of Wound Bed Granulated/Red: 50 Percent of Devitalized: 50 Length (cm): 1.8 Width (cm): 1.5 Depth (cm): 0.1 CM Sq: 2.700 Surrounding Tissue Appearance: Hyperpigmented Surrounding Tissue Temp: Warm Drainage Amount: Moderate Drainage Description: Serosanguineous Drainage Odor: No Odor Lidocaine Applied Topically: 2% Jelly Right Lower Medial Leg: Bed Appearance: Black Dry, [place] and Yellow Percent of Wound Bed Granulated/Red: [...] Diabetes mellitus type: type 2 Diabetes mellitus nursing home insulin use:with termite inspector use Diabetes mellitus complication status: with [...] will attempt to obtain that note from corporate communications associate in [place]. See Instructions for Orders See Instructions for Orders See Wound Discharge Instructions for Orders: Patient may require serial debridement to remove devitalized tissue and encourage granulation. Dictated By: Cathy Brar MD DD/ [id number] Signed By: <Electronically signed by MD Cathy Brar> 07/29/21 1231 [facility] Work Phone: Evaluation + Plan note No data available for this section [facility] evaluation note* Diagnosis Onset Date Resolution Status Right hip pain acuteStage IV pressure ulcer of sacral regionacuteUnstageable pressure ulcer of right heelacuteCauda equina spinal cord injurychronicDiabeteschronicPressure ulcer of left hip, stage 3resolvedPressure ulcer of right hip, stage 3resolved [facility] Work Phone: Evaluation note* Diagnosis Neurogenic bladder Neurogenic bladder, NOS documented in this encounter [facility] Phone: [email or web address] note* Diagnosis Neurogenic bladder Neurogenic bladder, NOS documented in this encounter [facility] Phone: [email or web address] note* Diagnosis Hyperkalemia- Primary Hyperpotassemia Acute kidney [...] of neurogenic bladder documented in this encounter [facility] Phone: evaluation note* Diagnosis Acute kidney injury (HCC) Acute kidney failure, unspecified Iron deficiency anemia, unspecified iron deficiency anemia type documented in this encounter [facility] Phone: [email or web address] note* Diagnosis Onset Date Resolution Status Pressure injury of left ischium, stage 4 acutePressure injury of right ischium, stage 4acutePressure ulcer of right foot, stage 2acuteRight hip painacuteStage IV pressure ulcer of sacral regionacute Cauda equina spinal cord injurychronicDiabeteschronic [facility] Work Phone: Evaluation note* Diagnosis Cauda equina syndrome (HCC) Cauda equina syndrome without mention of neurogenic bladder Neurogenic bladder Neurogenic bladder, NOS Urinary retention Retention of urine, unspecified Urinary incontinence without sensory awareness Incontinence without sensory awareness [facility] Diagnosis Cellulitis of left foot- Primary Ulcer of left ankle, with necrosis of bone (HCC) ([facility]) Diabetes mellitus due to underlying condition with diabetic polyneuropathy, unspecified whether termite inspector insulin use ([facility]) Acute complete paraplegia ([facility]) Acute osteomyelitis of left fibula ([facility]) Foot ulcer, right, with fat layer exposed ([facility]) Venous insufficiency Unspecified venous (peripheral) insufficiency documented in this encounter [facility] HealthcareEvaluation note* Diagnosis Abscess of toe, right- Primary documented in this encounter [facility] HealthcareEvaluation note* Diagnosis Onset Date Resolution Status [id number] acuteFoot ulcer with fat layer exposedacuteStage IV pressure ulcer of right buttockacuteStage IV pressure ulcer of sacral regionacuteCauda equina spinal cord injurychronicPressure ulcer of left buttock, stage 3chronic [facility] Work Phone: Evaluation note* Diagnosis Type 2 diabetes mellitus with hyperglycemia, without long-term current use of insulin ([facility])- Primary Dyslipidemia ([facility]) Other and unspecified hyperlipidemia Benign hypertension ([facility]) Essential hypertension, benign Major depressive disorder, recurrent episode, mild (HCC) ([facility]) Major depressive disorder, recurrent episode, mild Incontinence overflow, urine Overflow incontinence Chronic superficial 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 Type 2 diabetes mellitus with hyperglycemia, without long-term current use of insulin ([facility])- Primary Benign hypertension ([facility]) Essential hypertension, benign Major depressive disorder, recurrent episode, mild (HCC) ([facility]) Major depressive disorder, recurrent episode, mild Incontinence overflow, urine Overflow incontinence Pruritus Unspecified pruritic disorder Chronic kidney disease, stage 3a (HCC) ([facility]) Encounter for long-term (current) use of medications Encounter for long-term (current) use of other medications Cauda equina syndrome ([facility]/HCC) Cauda equina syndrome without mention of neurogenic bladder Urticaria- Primary Unspecified urticaria documented in this encounter [facility]* Diagnosis Type 2 diabetes mellitus with hyperglycemia, without long-term current use of insulin ([facility])- Primary Dyslipidemia ([facility]) Other and unspecified hyperlipidemia Benign hypertension ([facility]) Essential hypertension, benign Major depressive disorder, recurrent episode, mild (HCC) ([facility]) Major depressive disorder, recurrent episode, mild Incontinence overflow, urine Overflow incontinence Chronic superficial 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 Type 2 diabetes mellitus with hyperglycemia, without long-term current use of insulin ([facility])- Primary Benign hypertension ([facility]) Essential hypertension, benign Major depressive disorder, recurrent episode, mild (HCC) ([facility]) Major depressive disorder, recurrent episode, mild Incontinence overflow, urine Overflow incontinence Pruritus Unspecified pruritic disorder Chronic kidney disease, stage 3a (HCC) ([facility]) Encounter for long-term (current) use of medications Encounter for long-term (current) use of other medications Cauda equina syndrome ([facility]) Cauda equina syndrome without mention of neurogenic bladder Urticaria- Primary Unspecified urticaria Pruritus Unspecified pruritic disorder documented in this encounter [facility] HealthcareEvaluation note* Diagnosis Type 2 diabetes mellitus with hyperglycemia, without long-term current use of insulin ([facility])- Primary Benign hypertension ([facility]) Essential hypertension, benign Major depressive disorder, recurrent episode, mild (HCC) ([facility]) Major depressive disorder, recurrent episode, mild Incontinence overflow, urine Overflow incontinence Pruritus Unspecified pruritic disorder Chronic kidney disease, stage 3a (HCC) ([facility]) Encounter for long-term (current) use of medications Encounter for long-term (current) use of other medications Cauda equina syndrome ([facility]) Cauda equina syndrome without mention of neurogenic bladder documented in [facility] encounter [facility]* Diagnosis Type 2 diabetes mellitus with hyperglycemia, without long-term current use of insulin ([facility])- Primary Dyslipidemia ([facility]) Other and unspecified hyperlipidemia Benign hypertension ([facility]) Essential hypertension, benign Major depressive disorder, recurrent episode, mild (HCC) ([facility]) Major depressive disorder, recurrent episode, mild Incontinence overflow, urine Overflow incontinence Chronic superficial 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 Type 2 diabetes mellitus with hyperglycemia, without long-term current use of insulin ([facility])- Primary Benign hypertension ([facility]/HCC) Essential hypertension, benign Major depressive disorder, recurrent episode, mild (HCC) ([facility]/HCC) Major depressive disorder, recurrent episode, mild Incontinence overflow, urine Overflow incontinence Pruritus Unspecified pruritic disorder Chronic kidney disease, stage 3a (HCC) ([facility]) Encounter for long-term (current) use of medications Encounter for long-term (current) use of other medications Cauda equina syndrome ([facility]) Cauda equina syndrome without mention of neurogenic bladder Urticaria- Primary Unspecified urticaria Type 2 diabetes mellitus with hyperglycemia, without long-term current use of insulin ([facility])- Primary Benign hypertension ([facility]/HCC) Essential hypertension, benign Major depressive disorder, recurrent episode, mild (HCC) ([facility]) Major depressive disorder, recurrent episode, mild Incontinence overflow, urine Overflow incontinence Chronic superficial 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 Urticaria Unspecified urticaria Pruritus Unspecified pruritic disorder Annual physical exam Routine general medical examination at a health care facility Chronic kidney disease, stage 3a (HCC) ([facility]) Class 2 severe obesity due to excess calories with serious comorbidity and body mass index (BMI) of36.0 to 36.9 in adult ([facility]) Type 2 diabetes mellitus with other specified complication Hyperlipidemia, unspecified ([facility]) Pressure ulcer of right heel, unstageable ([facility]) Type 2 diabetes mellitus with other skin ulcer (CODE) Paraplegia, unspecified Diabetes mellitus due to underlying condition with diabetic polyneuropathy ([facility]) documented in this encounter [facility] HealthcareEvaluation note* Diagnosis Type 2 [...] pruritic disorder Chronic kidney disease, stage 3a ([facility]) Encounter for long-term (current) use [...] exam [facility] Chronic kidney disease, stage 3a ([facility]) Class 2 severe obesity due to excess calories with serious comorbidity and body mass index (BMI) of36.0 to 36.9 in adult ([facility]) Type 2 diabetes mellitus with other specified complication ([facility]) Hyperlipidemia, unspecified Pressure ulcer of right heel, unstageable ([facility]) Type 2 diabetes mellitus with other skin ulcer (CODE) ([facility]) Paraplegia, unspecified ([facility]) Diabetes mellitus due to underlying condition with diabetic polyneuropathy ([facility]) Type 2 diabetes mellitus with hyperglycemia, without long-term current use of insulin ([facility]) documented in this encounter [facility] HealthcareEvaluation note* Diagnosis Type 2 diabetes mellitus with hyperglycemia, without long-term current use of insulin ([facility])- Primary Dyslipidemia Other and unspecified [...] pruritic disorder Chronic kidney disease, stage 3a ([facility]) Encounter for long-term (current) use [...] care facility Chronic kidney disease, stage 3a ([facility]) Class 2 severe obesity due to excess calories with serious comorbidity and body mass index (BMI) of36.0 to 36.9 in adult ([facility]) Type 2 diabetes mellitus with other specified complication (HCC) Hyperlipidemia, unspecified Pressure ulcer of right heel, unstageable ([facility]) Type 2 diabetes mellitus with other skin ulcer (CODE) ([facility]) Paraplegia, unspecified ([facility]) Diabetes mellitus due to underlying condition with diabetic polyneuropathy ([facility]) Primary hypertension Unspecified essential hypertension Benign hypertension Essential hypertension, benign Type 2 diabetes mellitus with hyperglycemia, without long-term current use of insulin (HCC) Dyslipidemia Other and unspecified hyperlipidemia [facility] Additional Instructions DISCHARGE INSTRUCTIONS FOR [...] operative site FOLLOW UP Phone numbers: Office [phone] [facility] Work Phone: Hospital Discharge instructions No data available for this section [facility] Hospital Discharge instructions Additional Instructions Wound/Ulcer Instructions/Orders Left Ischium: Dressing: Cleanse with Dakins or saline, saline on 4X4 gauze packing or kerlix, ABD, Kerlix, drawtex, Secure/wrap: Skin prep prior to adhesive [facility] Work Phone: InstructionsNot on filedocumented in this encounter [facility] No data available for this section [facility] reason for referral (narrative)No reason for referral information availableUk [facility] Work Phone: Summary Purpose Family History No [...] Wound Left Fibula Osteomyelitis, Diabetes, UlcerativeReason for [id number] Foot ulcer with fat layer exposed 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 Cauda equina spinal cord injury Pressure ulcer of left buttock, stage 3 Chief Complaint Open Wound Left Fibula Osteomyelitis, Diabetes, Ulcerative UnknownReason for [id number] Foot ulcer with fat layer exposed Stage [...] EKG 12 Lead Angeles Nagy MD [address], [address] [place] [address] Referral IDStatusReasonStart DateExpiration DateVisits RequestedVisits [id number] / ProceduresReferred By ContactReferred To ContactRadiology Diagnoses Cauda equina syndrome (HCC) Neurogenic bladder Urinary retention Urinary incontinence without sensory awareness Procedures US RENAL COMPLETE Ashlee Erwin, [employer] - [employer] [address] [place] [address] Referral IDStatusReasonStart DateExpiration DateVisits RequestedVisits [id number] Additional Source Comments (unrecognized sect ion and content) No Status Records FoundNo Status Records FoundNo Status Records FoundNo Status Records FoundNo Status Records FoundNo Status Records FoundNo Status Records Found INFORMATION SOURCE (unrecogn ized section and content) DATE CREATED AUTHOR 09/21/2017 [facility] DATE CREATED AUTHOR AUTHOR'S ORGANIZ ATION 04/08/2022 [facility] DATE CREATED AUTHOR AUTHOR'S ORGANIZ ATION 09/27/2022 [facility] DATE CREATED AUTHOR AUTHOR'S ORGANIZ ATION 10/22/2023 [facility] DATE CREATED AUTHOR AUTHOR'S ORGANIZ ATION 08/03/2024 [facility] DATE CREATED AUTHOR AUTHOR'S ORGANIZ ATION 01/17/2025 [facility] DATE CREATED AUTHOR AUTHOR'S ORGANIZ ATION 02/01/2025 [facility] Care Teams (unrecognized sec tion [...] rt: March 14, 2024 End: March 14, 2024[facility] Patrick Care ProviderActiveStart: March 14, 2024 End: [...] DateEnd Date Fidel Abbott MD PCP - [facility] Medicine12/10/22 Fidel Abbott MD [address] [place] [address] PCP - [place] [employer]03/29/23Team MemberRelationshipSpecialtyStart DateEnd Date Fidel Abbott MD PCP - [facility]12/10/22 Fidel Abbott MD [address] [place] [address] PCP - [place] [employer]03/29/23Team MemberRelationshipSpecialtyStart DateEnd Date Fidel Abbott MD [address] [place] [address] PCP - [place] [employer]03/29/23 Fidel Abbott MD [address] [place] [address] PCP - [facility]05/12/23 Team Status: Inactive Member Role Status Dates [...] DateEnd Date Fidel Abbott MD PCP - Zeqcjrt17/2/17Team MemberRelationshipSpecialtyStart DateEnd Date Fidel Abbott MD [address] [place] [address] PCP - [place] Qltjjnbawt60/1/23 Fidel Abbott MD [address] [place] [address] PCP - [facility]11/18/23Team MemberRelationshipSpecialtyStart DateEnd Date Fidel Abbott MD [address] [place] [address] PCP - [place] Xmjgpkwukn34/1/23 Fidel Abbott MD [address] [place] [address] PCP - [facility]11/18/23 Team Status: Inactive Member Role Status Dates Fidel Abbott MD Primary Care Provider Active S tart: February 08, 2024 End: February 07Alice Belle ProviderActiveStart: February 08, 2024 End: February 08, 2024 Team Status: Active Member Role Status Dates Cathy Brar MD Attending Provider Active Sta rt: February 08, 2024 [facility] ProviderActiveStart: February 08, 2024 Team MemberRelationshipSpecialtyStart DateEnd Date Fidel Abbott MD [address] [place] [address] PCP - [place] Fzeccitcjv44/1/23 Fidel Abbott MD [address] [place] [address] PCP - [facility] Medicine11/18/23Team MemberRelationshipSpecialtyStart DateEnd Date Fidel Abbott MD [address] [place] [address] PCP - [place] Hbeavgppgg55/1/23 Fidel Abbott MD [address] [place] [address] PCP - [facility]11/18/23Team MemberRelationshipSpecialtyStart DateEnd Date Fidel Abbott MD [address] [place] [address] PCP - [place] Argnfoevxo45/1/23 Fidel Abbott MD [address] [place] [address] PCP - [facility]11/18/23Team MemberRelationshipSpecialtyStart DateEnd Date Fidel Abbott MD PCP - Plpmnnc78/2/17Team MemberRelationshipSpecialtyStart DateEnd Date Fidel Abbott MD PCP - Lafugld82Team MemberRelationshipSpecialtyStart DateEnd Date Fidel Abbott MD [address] [place] [address] PCP - [place] Sbiutrxylk34/1/23 Fidel Abbott MD [address] [place] [address] [facility] Fidel Abbott MD [address] [place] [address] PCP - [facility]05/05/24Team MemberRelationshipSpecialtyStart DateEnd Date Fidel Abbott MD [address] [place] [address] PCP - [place] Bujofzdmsb19/1/23 Fidel Abbott MD [address] [place] [address] [facility]/23 Fidel Abbott MD [address] [place] [address] PCP - [facility]05/05/24Team MemberRelationshipSpecialtyStart DateEnd Date Fidel Abbott MD [address] [place] [address] PCP - [place] Txmeqigqat89/1/23 Fidel Abbott MD [address] [place] [address] PCP - [facility]11/18/23 Fidel Abbott MD [address] [place] [address] PCP - [facility]05/05/24Team MemberRelationshipSpecialtyStart DateEnd Date Fidel Abbott MD [address] [place] [address] PCP - [facility]11/18/23 Fidel Abbott MD [address] [place] [address] PCP - [facility]05/05/24 Alvin Gonzalez MA [facility]08/08/24 Team Status: Active Member Role Status Dates Fidel Abbott MD Primary Care Provider Active S tart: August 15, 2024 Cathy Brar MDAttending ProviderActiveStart: August 15, 2024 Team Status: Inactive Member Role Status Dates Fidel Abbott MD Primary Care Provider Active S tart: August 30, 2024 End: August 30, 2024Marichard Navarro MDActiveStart: August 30, 2024 End: August 30, 2024Tami Azul FACILITY MAINTENANCE WORKER-CAtteodoroding ProviderActiveStart: August 30, 2024 End: August 30, 2024Team MemberRelationshipSpecialtyStart DateEnd Date Fidel Abbott MD [address] [place] [address] PCP - [facility] Medicine11/18/23 Team Status: Inactive Member Role Status Dates Fidel Abbott MD Primary Care Provider Active S tart: August 30, 2024 End: August 30, 2024Tami Azul FACILITY MAINTENANCE WORKER-CAttending ProviderActiveStart: August 30, 2024 End: August 30, 2024 Team Status: Inactive Member Role Status Dates Fidel Abbott MD Primary Care Provider Active S tart: October 02, 2024 End: October 02lkim Brar MDAttending ProviderActiveStart: October 02, 2024 End: October 02, 2024Team MemberRelationshipSpecialtyStart DateEnd Date Fidel Abbott MD [address] [place] [address] PCP - [facility] Medicine11/18/23Team MemberRelationshipSpecialtyStart DateEnd Date Fidel Abbott MD [address] [place] [address] PCP - [facility] Medicine11/18/23Team MemberRelationshipSpecialtyStart DateEnd Date Fidel Abbott MD [address] [place] [address] PCP - [facility] Medicine11/18/23Team MemberRelationshipSpecialtyStart DateEnd Date Fidel Abbott MD [address] [place] [address] PCP - [place] Ijjpyndyyg81/1/234 Fidel Abbott MD [address] [place] [address] PCP - GeneralFamily Medicine11/18/23 Fidel Abbott MD [address] [place] [address] PCP - [facility] Alvin Gonzalez MA [address] [place] [address] Family MedicineTeam MemberRelationshipSpecialtyStart DateEnd Date Fidel Abbott MD [address] [place] [address] PCP - [place] Lcnlbzfuwl69/1/234 Fidel Abbott MD [address] [place] [address] PCP - GeneralFamily Medicine Fidel Abbott MD [address] [place] [address] PCP - GeneralFamily Medicine Fidel Abbott MD [address] [place] [address] PCP - GeneralFamily Medicine11/18/23 Fidel Abbott MD [address] [place] [address] PCP - [facility] Alvin Gonzalez MA [address] [place] [address] [facility]5/// Team Status: Active Member Role/Relationship Status Dates [...] kidney injury (HCC) Matias Garcia MD [address] [place] [address] [facility] [address] [place] [address] Referral IDStatusReasonStart DateExpiration DateVisits RequestedVisits [id number] / ProceduresReferred By ContactReferred To ContactRadiology Diagnoses Cauda equina syndrome (HCC) Neurogenic bladder Urinary retention Urinary incontinence without sensory awareness Procedures US RENAL COMPLETE Ashlee Erwin, BASE FILLER - BACK LINE COOK [address] [place] [address] Referral IDStatusReasonStart DateExpiration DateVisits RequestedVisits [id number]/23/20236/[id number] UlcerReasonOnset EgqmMwzjkjedVddjyfrtjgis87/15/2024ReasonCommentsFollow-upHivesWaist up hives and itchyReasonCommentsMed RefillReasonCommentsFollow-upCheck upItchy from waist up ReasonCommentsFollow-upCheck upReasonOnset DateCommentsMed Dnomor4611/01/2024 Ordered Prescriptions (unrec ognized section and content) [...] Held - Provider: Cammy Kinghold) * 0959 ([facility] Unhold - Provider: Dragan Voss RN) [...] RN) * 0812 (MAR Hold - Provider: [facility] [place] [facility] - Reason: Unreviewed Transfer Orders) * [...] * 2045 (Due - Provider: Linda Ibrahim [facility]) fenofibrate (TRIGLIDE) tablet 160 mg 160 mg, Oral, DAILY, First dose on Wed06/23/22 at 0900, Until Discontinued, Substituted for Fenofibrate (Non-Formulary Dose). * 0907 (Given - Provider: Heri Valdez RN) * 0724 (Given - Provider: Heri Valdez RN) * 0812 (MAR Hold - Provider: Cammy Autohold - Reason: Unreviewed Transfer Orders) * 0900 (Automatically Held - Provider: Cammy Autohold) * 0959 ([facility] Unhold - Provider: Dragan Voss RN) [...] - Provider: Heri Valdez RN) * 0812 ([facility] Hold - Provider: Cammy Autohold - Reason: Unreviewed Transfer Orders) * 0900 (Automatically Held - Provider: Cammy Autohold) * 0959 ([facility] Unhold - Provider: Dragan Voss RN) [...] - Reason: IV Fluid Infusing) * 0812 ([facility] Hold - Provider: Cammy Autohold - Reason: Unreviewed Transfer Orders) * 0900 (Automatically Held - Provider: Cammy Autohold) * 0959 ([facility] Unhold - Provider: Dragan Voss RN) [...] RN) * 0812 (MAR Hold - Provider: [facility] [place] [facility] - Reason: Unreviewed Transfer Orders) * 0900 (Automatically Held - Provider: Cammy Autohold) * 0959 ([facility] Unhold - Provider: Dragan Voss RN) Medication Order06/24/// 0.9 % sodium chloride infusion IntraVENous, at 75 mL/hr, CONTINUOUS, Starting on Wed06/22/22 at 2045 * 0020 (New Bag - Provider: Geneva Samayoa RN) * 0812 (MAR Hold - Provider: [facility] [place] [facility] - Reason: Unreviewed Transfer Orders) * 0959 ([facility] Unhold - Provider: Dragan Voss RN) [...] into rate field of order. * 0812 ([facility] Hold - Provider: [facility] [place] [employer] - Reason: Unreviewed Transfer Orders) * 0959 ([facility] Unhold - Provider: Dragan Voss RN) 0.9 % sodium chloride infusion IntraVENous, at 240 mL/hr, Administer over 10 Minutes, PRN, blood administration, Starting on Wed06/24/22 at 0733, For 1 dose, For use in priming line prior to transfusion (prime via gravity) and flush line post transfusion ONLY. Discontinue once line has been cleared of remaining blood product. * 0812 ([facility] Hold - Provider: [facility] [place] [employer] - Reason: Unreviewed Transfer Orders) * 0959 ([facility] Unhold - Provider: Dragan Voss RN) acetaminophen (TYLENOL) suppository 650 mg(Linked Group 1) 650 mg, Rectal, EVERY 6 HOURS PRN, Starting on Wed06/22/22 at 2017, Until Discontinued, Pain Mild (1-3), Fever, For temp greater than 100.4 F (38 C), Administer if oral route cannot be used. * 0812 ([facility] Hold - Provider: [facility] [place] [facility] - Reason: Unreviewed Transfer Orders) * 0959 ([facility] Unhold - Provider: Dragan Voss RN) acetaminophen (TYLENOL) tablet 650 mg(Linked Group 1) 650 mg, Oral, EVERY 6 HOURS PRN, Starting on Wed06/22/22 at 2017, Until Discontinued, Pain Mild (1-3), Fever, For temp greater than 100.4 F (38 C), Maximum dose of acetaminophen is 4000 mg from all sources in 24 hours. * 0812 ([facility] Hold - Provider: [facility] [place] [employer] - Reason: Unreviewed Transfer Orders) * 0959 ([facility] Unhold - Provider: Dragan Voss RN) ondansetron (ZOFRAN) injection 4 mg(Linked Group 2) 4 mg, IntraVENous, EVERY 6 HOURS PRN, Starting on Wed06/22/22 at 2017, Until Discontinued, Nausea, Vomiting, Administer if oral route cannot be used. * 0812 ([facility] Hold - Provider: [facility] [place] [employer] - Reason: Unreviewed Transfer Orders) * 0959 ([facility] Unhold - Provider: Dragan Voss RN) ondansetron (ZOFRAN-ODT) disintegrating tablet 4 mg(Linked Group 2) 4 mg, Oral, EVERY 8 HOURS PRN, Starting on Wed06/22/22 at 2017, Until Discontinued, Nausea, Vomiting * 0812 ([facility] Hold - Provider: [facility] [place] [employer] - Reason: Unreviewed Transfer Orders) * 0959 ([facility] Unhold - Provider: Dragan Voss RN) polyethylene glycol (GLYCOLAX) packet 17 g 17 g, Oral, DAILY PRN, Starting on Wed06/22/22 at 2017, Until Discontinued, Constipation, First line therapy for constipation * 0812 ([facility] Hold - Provider: [facility] [place] [facility] - Reason: Unreviewed Transfer Orders) * 0959 ([facility] Unhold - Provider: Dragan Voss RN) sodium chloride flush 0.9 % injection 10 mL 10 mL, IntraVENous, PRN, Starting on Wed06/22/22 at 2017, Until Discontinued, Line Care, After every IV line use * 0812 ([facility] Hold - Provider: Cammy Autohold - Reason: Unreviewed Transfer Orders) * 0959 ([facility] Unhold - Provider: Dragan Voss RN) [...] BE BASED ON THE PRIMARY CLINICAL RECORDS. [employer] [facility]. provides no warranty or guarantee of the accuracy or completeness of information in this document.
--- OUTSIDE RECORDS SUMMARY | 2025-03-04 20:19 | XMS_ITS | Clinical Summary ---
Author Organization [facility] Healthcare Address [address] [place] [address] Care Team Providers Care Grout Worker Name Role Phone Fidel Reis MD Primary Care Provider [phone] Allergies Active AllergyReactionsCriticalityNoted BruuNlgqvzijBunejrgnsucs68/28/2023 Other Reaction(s): Kidney pain VancomycinOther,Bubupmf5406/21/2015 NEPHROTOXICITY States had kidney issues after taking Medications MedicationSigDispense QuantityRefillsLast FilledStart DateEnd DateStatus oxybutynin XL (Ditropan-XL) 15 MG 24 hr tablet Indications:Incontinence overflow, urineTake 1 tablet (15 mg) by mouth Daily 30 tablet 11005/01/7940516Active atenolol (Tenormin) 100 MG tablet Indications:Benign hypertensionTake [...] (07/31/2024 11:20 AM EDT): Weight loss indicated. Klfrzifuj31/24/2024 Assessment & Plan (01/20/2024 12:25 PM EDT): Unclear cause of hives. Treat with prednisone and use hydroxyzine PRN. Encounter for long-term (current) use of iliaggemtgr58/22/2024enign uyusemsdilst12/09/2024 Assessment & Plan (07/31/2024 11:18 AM EDT): BP controlled and monitor PRN. Assessment & Plan (04/06/2023 10:47 AM EST): BP controlled and monitor PRN. Cauda equina avxwgpzf42/09/2024 Assessment & Plan (11/18/2023 2:11 PM EDT): Patient stable Eugppcvqta82/09/2024hronic superficial cnlhywlyq49/09/2024 Assessment & Plan (07/31/2024 11:18 AM EDT): Symptoms controlled with medication and continue. Assessment & Plan (04/06/2023 10:47 AM EST): Symptoms controlled with medication and continue. Eczema, yijhysmhwsf22/09/2024Major depressive disorder, recurrent episode, mild 04/06/2023 Assessment [...] with hyperglycemia, without long-term current use of pbkcbtk5804/06/2023 Assessment & Plan (07/31/2024 11:18 AM EDT): Reports BS stable and due for A1C. Stick to ADA diet and limit carbs. Assessment & Plan (04/06/2023 10:48 AM EST): Reports BS stable and due for A1C. Stick to ADA diet and limit carbs. Iikwbxhyvqya56/09/2024hronic kidney disease, stage 3a04/06/2023 Resolved Problems ProblemNoted DateDiagnosed DateResolved RlpzWeinimme08 Assessment & Plan (11/18/2023 2:11 PM EDT): C/o itching and try hydroxyzine. Social History Tobacco UseTypesPacks/DayYears UsedDateSmoking Tobacco: NeverSmokeless [...] times a week10/17/2023How often do you attend congregation or christianity services?Patient piuexykf90/21/2024o you belong to any clubs or organizations such as congregation groups, unions, fraternal or athletic groups, or school groups?No 10/17/2023How often do you attend meetings of the clubs or organizations you belong to?Never10/17/2023re you , , , , never , or living with a partner?Ayicbwj9010/17/2023UDIT-CAnswerDate RecordedQ1: How often do you have a drink containing alcohol?Patient khojthrs52/21/2024Q2: How many drinks containing alcohol do you have on a typical day when you are drinking?Patient does not drink10/17/2023Q3: How often do you have six or more drinks on one occasion?Never10/17/2023Overall Financial Resource Strain (CARDIA) AnswerDate RecordedHow hard is it for you to pay for the very basics like food, housing, medical care, and heating?Not hard at all10/17/2023[facility] - Occupational Stress QuestionnaireAnswerDate RecordedDo you feel stress - tense, restless, nervous, or anxious, or unable to sleep at night because yourmind is troubled all the time - these days?Patient declined 10/17/2023Exercise Vital SignAnswerDate RecordedOn average, how many days per week do you engage in moderate to strenuous exercise (like a brisk walk)?Patient fgdczhas17/21/2024On average, how many minutes do you engage in exercise at this level?Patient inbawjei25/21/2024Hunger Vital SignAnswerDate RecordedWithin the past 12 months, [...] or living in a care home (including now)?No10/17/2023Sex and Gender InformationValueDate RecordedSex Assigned at BirthNot on fileLegal KkuRspb6806/10/2022 7:28 PM EDT Gender IdentityNot on fileSexual OrientationNot on file Last Filed Vital Signs Vital SignReadingTime TakenCommentsBlood Pumlymvy080/7005 10:49 AM EDT Rmoep118207/31/2024 10:49 AM WCUYjlkslfqxqn03.4 ??C (97.5 ??F)07/31/2024 10:49 AM EDTRespiratory Gggk7066 10:49 AM EDTOxygen Dqtgkomhvw94%07/31/2024 10:49 AM EDTInhaled Oxygen Concentration--Tcejxa450 kg (252 lb)06/10/2023 11:15 AM EDT Elcipo965.3 cm (5' 11 )07/31/2024 10:49 AM EDTBody Mass Index36.16006/10/2023 11:15 AM EDT Plan of Treatment Not on file Insurance Care Teams Team MemberRelationshipSpecialtyStart DateEnd Date Fidel Reis MD PCP - GeneralFamily Medicine11/18/23
--- OUTSIDE RECORDS SUMMARY | 2025-03-04 20:21 | XMS_ITS | Clinical Summary ---
Author Organization [facility] Address [address], [address] [place] [address] Care Team Providers Care Filenet Architect Name Role Phone Fidel Reis MD Primary Care Provider + Allergies Active AllergyReactionsCriticalityNoted AjicEbmnyvgyYwgjwbnjip33/25/2016 States had kidney issues after taking Medications [...] migh t be different from the original. MEDICAL RECEPTIONIST MEDICAL ASSISTANT: KERRI HARTMAN PH: [phone] EXT: [phone] FAX : [phone] [facility] Ph. [phone] ProblemNoted DateDiagnosed DatePostprocedural stricture of overlapping sites of urethra in male07/06/2022Iron deficiency woizow3206/26/2022cute kidney injury 06/25/2022ressure injury of right ankle, stage 403 Overview (06/24/2022): Fibular malleolus Acute kidney injury superimposed on CKD06/23/2022bnormal EKG006/23/2022 Neurogenic kyngoob8206/23/20227762Tnkenwaxtadn45/27/2023MSSA (methicillin susceptible Staphylococcus aureus) zplcniksl10/02/2018 Overview (05/28/2017): RLE Decubitus ulcer of coccygeal region, stage 4013185Wougwnnigp56/11/2018 Bacterial iblvgkyjr91/22/2017Morbid obesity due to excess /06/2017 Acute on chronic renal vcrtsel2712/30/2016Open wound of right ankle12/30/2016 Enterococcus faecalis yqiivylrd56/02/2017Skin ulcer of right heel with fat layer nilizbo5409/02/2016Mixed vkhtgmtghsgzug49/28/3498Qlghlrqhtlln42/28/2016Skin ulcer of right ankle with fat layer clrqgzg3104/25/2015 Overview (04/25/2015): Lateral ankle @ fibular malleolus Decubitus ulcer of coccygeal jvrzag1507/19/2013Cauda equina cviaavwu87/12/2012 Overview (12/03/2014): replace inactive diagnosis Diabetes unvgbegj17/05/6862Vujdqmdtbr95/15/2011Open wound of knee, leg (except thigh), and ankle, dwuoislggsg51/30/2011HypertensionDepressionOsteomyelitis of right footOsteomyelitis of ankle or foot, right, acute Resolved Problems ProblemNoted DateDiagnosed DateResolved DateAcute hematogenous osteomyelitis of right footAbscess of right foot including toes11/04/2016 01/13/2017 Overview (11/04/2016): Lateral 5th MPJ Skin ulcer of right midfoot region with fat layer utyvbdp75 Overview (10/08/2016): Lateral 5th MPJ Sepsis due to methicillin resistant Staphylococcus aureus (MRSA)09/09/2016 05/26/2017Ulcer of right midfoot with fat layer ieixduf11 Overview (09/02/2016): Right 5th MPJ Skin ulcer of right calf with fat layer nlomcls47Cellulitis of right lower bliypiwkv00Cellulitis and abscess of leg, except footCellulitis of right leg09/02/2016 Immunizations ImmunizationAdministration DatesNext DueInfluenza Vaccine, unspecified lnyvppadrae44/01/2016Influenza, FLUARIX, FLULAVAL, FLUZONE (age 6 mo+) and [...] you with harm?Not on 2022Read-Only, Retired: Physical BrjxzRgpcvp97/11/2023Read-Only, Retired: Verbal MbdvtGmumkm90/11/2023 Read-Only, Retired: Emotional yzshaZhokuu10/11/2023Read-Only, Retired: Financial WwwivXqgufk32/11/2023Read-Only, Retired: Sexual tbtkcLkekow59/11/2023Sex and Gender InformationValueDate RecordedSex Assigned at BirthNot on fileLegal Sex Male05/08/2012 10:15 PM ESTGender IdentityNot on fileSexual OrientationNot on file Last Filed Vital Signs Vital SignReadingTime TakenCommentsBlood Rmluupzz096/6706 10:34 AM EDT Embls237409/25/2022 10:34 AM HTXFzvmmhowebh76.5 ??C (97.7 ??F)09/25/2022 10:34 AM EDTRespiratory Kkfv2904 1:15 PM EDTOxygen Aemsunjbql48%2022 1:15 PM EDTInhaled Oxygen Concentration--Dmdpkm218.4 kg (250 lb)09/25/2022 10:34 AM JFISkcgfg057.3 cm (5' 11 )09/25/2022 10:34 AM EDTBody Mass Index34.8706 10:34 AM EDT Plan of Treatment Health MaintenanceDue DateLast DoneCommentsDepression Fgnflphkpe86/11/1974HIV xqtshm2107/07/1976Diabetic retinal exam07/08/1979Hepatitis C mkwmlh8007/08/1979 DTaP/Tdap/Td vaccine (1 - Tdap)1980Pneumococcal 50+ years Vaccine (1 of 2 - PCV)1980Fecal-DNA (Cologuard): Average risk2006Sigmoidoscopy/CT wkbajxyluxvv55/11/2007Shingles vaccine (1 of 2)07/08/2011Diabetic Alb to Cr ratio (uACR) testDiabetic foot exam Respiratory Syncytial Virus (RSV) or age 60 yrs+ (1 - Risk 60-74 years 1-dose series)2021nnual Wellness Visit (Medicare)02/22/2023Lipids , 04/25/2015, 04/25/2015FIT/FOBT: Average risk06/26/2023 06/25/20225923Enjhojdbgfy76, 06/26/2022olorectal Cancer Screen 4A1C test (Diabetic or [...] ProblemsRecent ProgressPatient-Stated?Author Blood Pressure < 140/90 Blood Qypsxvjd338/67(09/25/2022 10:34 AM EDT)Iesha Lyons RN non smoker [...] on 12/25/2016 by Gabriel Haile DPM at [facility]/Graft/Tissue/Human/SynthRight: Appside [id number] / / [id number]:tobramyicin recostituted with 10ml normal saline ref # [id number] exp 07/27/2018 lot # [id number] Procedures Procedure NamePriorityDate/TimeAssociated DiagnosisCommentsBASIC METABOLIC PANEL Npvkzjn5909/18/2022 1:12 PM EDT Cauda equina syndrome (HCC) Neurogenic bladder Urinary retention Urinary incontinence without sensory awareness HEMOGLOBIN A6XZtzs [employer] Label 2022 10:47 AM EDT COLONOSCOPY IYBDTDLWZStznkrt99/31/2023 7:28 AM EDT BLOOD OCCULT STOOL DIAGNOSTICSunquest Label 06/25/2022 7:45 PM EDT LIPID VGCNJXdwwfcb32/28/2023 6:40 AM EDT MICROALBUMIN, URSunquest Label Print04/24/2015 11:32 PM EST from Last 3 Months or Most Recently Relevant to Health Maintenance Results * (ABNORMAL) Basic Metabolic Panel (09/18/2022 1:12 PM EDT)ComponentValueRef RangeTest MethodAnalysis TimePerformed AtPathologist XmjzfycyiZuhsunu886(H)70 - 99 mg/dL09/18/2022 1:12 PM [facility] AKIKCX84(H)8 - 23 mg/dL09/18/2022 1:12 PM [facility] LABCreatinine1.25(H) 0.70 - 1.20 mg/dL09/18/2022 1:12 PM [facility] LABEst, Glom Filt Rate>60>60 mL/min/1.47s54909/18/2022 1:12 PM [facility] LABComment: ? These results are not intended [...] tubular secretion. BUN/Creatinine Ratio26(H) - 1:12 PM [facility] LABCalcium9.38.6 - 10.4 mg/dL09/18/2022 1:12 PM [facility] FSWSwxraq425864 - 144 mmol/L09/18/2022 1:12 PM [facility] LABPotassium4.13.7 - 5.3 mmol/L09/18/2022 1:12 PM [facility] UQAAowstfir70973 - 107 mmol/L09/18/2022 1:12 PM [facility] XEEPU59858 - 31 mmol/L09/18/2022 1:12 PM [facility] LABAnion Cpb894 - 17 mmol/L09/18/2022 1:12 PM [facility] LABSpecimen (Source)Anatomical Location / LateralityCollection Method / VolumeCollection TimeReceived TimeBLOOD SPECIMEN / Wsvpqiq6409/18/2022 1:12 PM EDT 09/18/2022 1:13 PM EDT Narrative Authorizing ProviderResult TypeResult StatusBethjennifer Bradley REHABILITATION SERVICES AIDE - MANAGER IMPLEMENTATION CHEMISTRY ORDERABLESFinal ResultPerforming OrganizationAddressCity/State/ZIP CodePhone Number [facility] [address] [phone] * (ABNORMAL) Hemoglobin A1C (2022 10:47 AM EDT)ComponentValueRef RangeTest MethodAnalysis TimePerformed AtPathologist SignatureHemoglobin A1C7.6(H)4.0 - 6.0 %2022 10:47 AM EDTMERCY LABORATORIESEstimated Avg Gbarsbf902wr/dL 2022 10:47 AM EDTMERCY LABORATORIESComment: The ADA and AACC recommend providing the estimated average glucose result to permit better patient understanding of their HBA1c result. Specimen (Source)Anatomical Location / LateralityCollection Method / Volume Collection TimeReceived TimeBLOOD SPECIMEN / Fckmjiv6507/07/2022 10:47 AM EDT 2022 10:51 AM EDT Narrative Authorizing ProviderResult TypeResult StatusMichael Brelynette REHABILITATION SERVICES AIDE - VETERINARY TECHNOLOGY INSTRUCTOR CHEMISTRY ORDERABLESFinal ResultPerforming OrganizationAddressCity/State/ZIP CodePhone Number [facility] [address] [phone] [phone] * Colonoscopy (06/26/2022 7:28 AM EDT)Specimen (Source)Anatomical Location / LateralityCollection Method / VolumeCollection TimeReceived Time Narrative Epic, User - 06/26/2022 7:28 AM EDT No dictation Authorizing ProviderResult TypeResult StatusVivian N Alan MDENDOSCOPY ORDERABLESFinal Result * Blood occult stool #1 (06/25/2022 7:45 PM EDT)ComponentValueRef RangeTest MethodAnalysis TimePerformed AtPathologist SignatureOccult Blood, Stool #1 JAUCZBOAKDLGOZFF23/30/2023 7:45 PM [facility] LABDate, Stool #[id number]/25/2022 7:45 PM [facility] LABComment: 30 23 Time, Stool #[id number]/25/2022 7:45 PM [facility] Specimen (Source)Anatomical Location / LateralityCollection Method / Volume Collection TimeReceived TimeSTOOL SPECIMEN / Hyfqflm5406/25/2022 7:45 PM EDT 06/25/2022 7:52 PM EDT Narrative Authorizing ProviderResult TypeResult StatusShirjose Ritchie REHABILITATION SERVICES AIDE - MANAGER IMPLEMENTATION BODY FLUIDS AND STOOLS ORDERABLESFinal ResultPerforming OrganizationAddress City/State/ZIP CodePhone Number [facility] [address] [phone] * (ABNORMAL) Lipid Panel (06/23/2022 6:40 AM EDT)ComponentValueRef RangeTest MethodAnalysis TimePerformed AtPathologist LfdxhsiwvYxkmevawuqj229<200 mg/dL 06/23/2022 6:40 AM EDTMERCY LABORATORIESComment: Cholesterol Guidelines: <200 Desirable 200-240 ??Borderline >240 Undesirable HDL28(L)>40 mg/dL06/23/2022 6:40 AM EDTMERCY LABORATORIESComment: HDL Guidelines: <40 Undesirable 40-59 ?Borderline >59 Desirable LDL Obzpaqxogvh191 - 130 mg/dL06/23/2022 6:40 AM EDTMERCY LABORATORIESComment: LDL Guidelines: <100 Desirable 100-129 ?? Near to/above Desirable 130-159 ?? Borderline >159 Undesirable Direct (measured) LDL and calculated LDL are not interchangeable tests. Chol/HDL Ratio5.3(H)<503 6:40 AM EDTMERCY LABORATORIESComment: Lyrpcxckpqdxo851<150 mg/dL06/23/2022 6:40 AM EDTMERCY LABORATORIESComment: Triglyceride Guidelines: <150 Desirable 150-199 ??Borderline 200-499 ??High >499 Very high Based on AHA Guidelines for fasting triglyceride, December 2011. Specimen (Source)Anatomical Location / LateralityCollection Method / Volume Collection TimeReceived TimeBLOOD SPECIMEN / Kawxpcx6106/23/2022 6:40 AM EDT 06/23/2022 5:47 PM EDT Narrative Authorizing ProviderResult TypeResult StatusZoila GUERREROMERCY HEALTH ST. JOSEPH WARREN HOSPITALEMISTRY ORDERABLESFinal ResultPerforming OrganizationAddressCity/State/ZIP CodePhone Number [facility] [address] [place] [address], [facility] [phone] [address], [facility] [phone] * (ABNORMAL) Microalbumin, Ur (04/24/2015 11:32 PM EST)ComponentValueRef Range Test MethodAnalysis TimePerformed AtPathologist SignatureAlbumin Iguzz133(H) <21 mg/L04/25/2015 1:13 AM ESTPN LABCreatinine, Ur274.6(H)28.0 - 217.0 mg/dL 04/25/2015 12:27 AM ESTPN LABMicroalb/[employer] Former Supervisor. Tpcqu553imh/mg creat04/25/2015 1:13 AM ESTPN LABUrine Microalbumin Qhgadb3704/25/2015 1:13 AM ESTPN LAB Comment: REFERENCE RANGE NORMAL ? = 0 - 13 ?? mcg/mg creat BORDERLINE = 14 - 30 ??mcg/mg creat ABNORMAL = >30 mcg/mg creat Performed at [address] [place] [address] ([phone] Specimen (Source)Anatomical Location / LateralityCollection Method / Volume Collection TimeReceived ShqkHcory98/27/2016 11:32 PM EST04/24/2015 11:46 PM EST Narrative Authorizing ProviderResult TypeResult StatusMarshal NAPIER ORDERABLESFinal ResultPerforming OrganizationAddressCity/State/ZIP CodePhone Number [facility] [address] [place] [id number], [facility] [phone] [facility] from Last 3 Months or Most Recently Relevant to Health Maintenance Additional Health Concerns InfectionOnset DateLast IndicatedMRSA Comment:Right ankle 01/07/2012 Insurance * Guarantor: Ganga Miranda TypeRelation to PatientDate of BirthPhone Billing AddressPersonal/DahusbPncb81/11/1961 [facility] [address] [place] [address] * Guarantor: Ganga Miranda TypeRelation to PatientDate of BirthPhone Billing AddressPersonal/UkgntdCfrd42/11/1961 [facility] [address] [place] [address] Advance Directives * Full Code (Latest Code [...] Team MemberRelationshipSpecialtyStart DateEnd Date Fidel Reis MD [facility]07/03/15
[2025-03-04 20:23] LABS: Glucose Urine UA NEGATIVE (NEGATIVE)
[2025-03-04 20:30] LABS: Cast Seen? SEEN #/LPF (NONE SEEN); Crystals Seen? None Seen #/HPF (None Seen); Urine Culture Indicated NO
[2025-03-04] MEDS: PIPERACILLIN SODIUM/TAZOBACTAM 4.5 GM in 0.9 % SODIUM CHLORIDE 50 ML IV (20:41)
[2025-03-04 22:59] LABS: Lactate/Lactic Acid 0.6 mmol/L (0.4-2.0)
[2025-03-05] VITALS: O2SAT 90
[2025-03-05 00:02] VITALS: O2SAT 90
[2025-03-05 01:34] VITALS: BP 152/78
== END 2025-03-05 01:47 | disposition short-term general hospital (02) ==
PROVIDERS: Emergency Provider Emergency Medicine; PCP Family Medicine
DX: A41.9 Sepsis, unspecified organism (principal); E11.621 Type 2 diabetes mellitus with foot ulcer; L97.523 Non-pressure chronic ulcer of other part of left foot with necrosis of muscle; R41.82 Altered mental status, unspecified; G82.20 Paraplegia, unspecified
CPT/HCPCS: 36415; 70450; 71045; 80053; 81001; 83605; 83735; 85025; 87040; 87804; 87811; 93005; 96361; 96365; 96375; 99285; J1630; J2060; J2543